=== PATIENT | male | born 1950 | race Caucasian/White ===

== ENCOUNTER 2024-01-10 15:35 | Observation (INO) | payer MEDICARE, SELFPAY ==
[2024-01-10] VITALS (13 sets, daily range): BP systolic 104–123; BP diastolic 63–80; PULSE 79–89; RESP 15–20; TEMP 36.1–37.1; O2SAT 95–100
--- NOTE | 2024-01-10 15:41 | ECG_ITS ---
Measurements Intervals [place] Rate: 88 P: 31 NC: 172 QRS: -29 QRSD: 99 T: 32 QT: 378 QTc: 459 Interpretive Statements SINUS RHYTHM DELAYED PRECORDIAL R/S TRANSITION NONSPECIFIC ST & T-WAVE ABNORMALITY- HIGH LATERAL LEADS BORDERLINE ECG NO PREVIOUS ECG AVAILABLE FOR COMPARISON Electronically Signed On 01-10-2024 18:26:45 ANTIQUE REFINISHER by Mychal Mariee D.O.
[2024-01-10 16:11] LABS: Basophils Percent Auto 0.2 % (0.2-1.2); Eosinophils Absolute Auto 0.2 K/mm3 (0-0.3); Eosinophils Percent Auto 4.4 % (0-4.4); Hematocrit 33.7 % (42.0-52.0); Hemoglobin 11.3 g/dL (14.0-18.0); Immature Granulocyte Absolute 0.01 K/mm3 (0.00-0.031); Immature Granulocyte Percent A 0.2 % (0-0.5); Lymphocytes Absolute Auto 1.56 K/mm3 (0.9-3.2); Lymphocytes Percent Auto 35.9 % (18.3-44.2); Mean Corpuscular HGB Conc 33.5 g/dl (32-36); Mean Corpuscular Hemoglobin 29.3 pg (26-34); Mean Corpuscular Volume 87.3 fl (80-100); Monocytes Absolute Auto 1.2 K/mm3 (0.1-0.6); Monocytes Percent Auto 28.1 % (2.6-8.5); Neutrophils Absolute Auto 1.4 K/mm3 (1.3-6.7); Neutrophils Percent Auto 31.2 % (45.5-73.1); Platelet Count Result 309 k/mm3 (150-375); Red Blood Count 3.86 M/mm3 (4.6-6.20); Red Cell Distribution Width 13.7 % (11.5-14.5); White Blood Count 4.3 K/mm3 (4.5-10.0)
--- NOTE | 2024-01-10 16:12 | ED.RECABL ---
HPI - Recheck/Abnormal Lab/Rx General Chief Complaint: Recheck/Abnormal Lab/Rx Stated Complaint: Low potassium Time Seen by Provider: 01/10/24 15:50 Source: patient and family () Mode of arrival: EMS Limitations: no limitations History of Present Illness HPI narrative: Patient presents with report of hypokalemia of 2.2 from outside labs drawn. He has had episodes of hypokalemia before. He is on a diuretic as he dealt with bilateral lower extremity edema and anasarca previously. Labs were drawn because patient was experiencing fatigue, increased sleepiness, weakness, and issues with blood pressure. He has felt nauseated but not vomiting. Patient had spinal fusion surgery during which he coded in recovery. He received post cardiac arrest blood thinners and blood leaked into spinal canal leaving him paralyzed. He currently has a left sided nephrostomy drain. medication list per [facility] documentation list diltiazem 120 mg extended release, ondansetron, multiple vitamins minerals tablet, gabapentin, metolazone, zolpidem, enoxaparin, nutritional supplement, vitamin C, Tubersol, Scout packet, stimulant laxative, tamsulosin, bisacodyl, cyclobenzaprine, acetaminophen, miconazole antifungal cream, acyclovir, cholecalciferol, furosemide 40 mg, levitiracetam, pantoprazole Related Data Home Medications Medication Instructions Recorded Confirmed acetaminophen 500 mg tablet 500 mg PO Q6H PRN Pain (Scale 01/10/24 01/10/24 Score 1-3) acyclovir 400 mg tablet 400 mg PO BID 01/10/24 01/10/24 arginine 7 gram-glutamine 7 1 ea PO BID 01/10/24 01/10/24 gram-calcium HMB 1.5 gram oral powder pack (Scout) ascorbate calcium (vitamin C) 500 500 mg PO BID 01/10/24 01/10/24 mg tablet bisacodyl 10 mg rectal suppository 10 mg RECTAL DAILY PRN Constipation 01/10/24 01/10/24 cholecalciferol (vitamin D3) 125 125 mcg PO DAILY 01/10/24 01/10/24 mcg (5,000 unit) capsule cyclobenzaprine 10 mg tablet 5 mg PO TID PRN muscle spasms 01/10/24 01/10/24 diltiazem HCl 240 mg 120 mg PO BID 01/10/24 01/10/24 capsule,extended release 24 hr, controlled (DILT-XR) enoxaparin 80 mg/0.8 mL 80 mg subcut Q12H 01/10/24 01/10/24 subcutaneous syringe furosemide 40 mg tablet 40 mg PO BID 01/10/24 01/10/24 gabapentin 600 mg tablet 600 mg PO TID PRN Pain (Scale 01/10/24 01/10/24 Score 1-3) levetiracetam 1,000 mg tablet 1,000 mg PO BID 01/10/24 01/10/24 metolazone 5 mg tablet 5 mg PO DAILY 01/10/24 01/10/24 miconazole nitrate 2 % topical 1 applic topical BID 01/10/24 01/10/24 cream multivitamin 1 tablet PO DAILY 01/10/24 01/10/24 ondansetron HCl 4 mg tablet 4 mg PO Q8H PRN nausea/vomiting 01/10/24 01/10/24 pantoprazole 40 mg tablet,delayed 40 mg PO DAILY 01/10/24 01/10/24 release sennosides 8.6 mg-docusate sodium 1 tab-cap PO DAILY 01/10/24 01/10/24 50 mg tablet (Stimulant Laxative Plus) tamsulosin 0.4 mg capsule 0.4 mg PO DAILY 01/10/24 01/10/24 Allergies Allergy/AdvReac Type Severity Reaction Status Date / Time No Known Allergies Allergy Verified 01/10/24 15:40 [facility] Past Medical History Medical History (Updated 01/11/24 @ 10:29 by Nelly Montgomery MD) Anemia, unspecified Complete paraplegia since 11/07/2023 Deep venous thrombosis Gastroesophageal reflux disease without esophagitis Hypertension Insomnia Kidney stones Melanoma Postoperative cardiac arrest (10/2023) Prostate cancer Pulmonary embolism Pulmonary hypertension Seizure disorder Surgical History Surgical History (Updated 01/10/24 @ 23:49 by Nidia Ortez PA-C) History of arthroscopy of both knees History of bilateral knee arthroplasty History of lithotripsy History of radical prostatectomy (2007) History of spinal surgery Presence of urogenital implants Family History Family History (Updated 01/10/24 @ 23:49 by Nidia Ortez PA-C) Other Family history non-contributory Social History Social History (Updated 01/10/24 @ 23:50 by Nidia
[2024-01-10 16:23] LABS: Phosphorus 4.1 mg/dL (2.5-4.5)
[2024-01-10 16:28] LABS: Alanine Aminotransferase 23 U/L (6-50); Alkaline Phosphatase 101 U/L (38-126); Aspartate Amino Transferase 28 U/L (17-59); Bilirubin,Total 0.6 mg/dL (0.2-1.3); Blood Urea Nitrogen 71 mg/dL (9-20); Calcium 9.6 mg/dL (8.4-10.2); Carbon Dioxide > 40 mmol/L (22-30); Chloride 81 mmol/L (98-107); Estimated CRCL calculation 41 ml/min; Estimated Glomerular Filt Rate 50; Glucose 127 mg/dL (65-110); Magnesium 2.4 mg/dL (1.6-2.3); Potassium < 2.0 mmol/L (3.4-5.0); Sodium 130 mmol/L (137-145)
[2024-01-10] MEDS: SODIUM CHLORIDE 0.9% IV 1,000 ML 999 ML IV CONT (16:47)
[2024-01-10] MEDS: POTASSIUM PHOS/SODIUM PHOS 250 MG TABLET PO (16:48)
[2024-01-10] MEDS: KCL 20 MEQ/SW 100 ML 100 ML 50 MEQ IVPB ×2 (17:21→19:22)
[2024-01-10 17:48] LABS: Creatine Kinase 23 U/L (55-170)
--- NOTE | 2024-01-10 19:04 | PM.IMHP ---
H&P: HPI History of Present Illness Date/Time: 01/10/24 23:00 Chief Complaint: Low potassium level. Narrative: This is a very pleasant 73-year-old male with history of cardiac arrest following back surgery in October 2023 complicated by what sounds like hemorrhage at the operative site leading to complete paraplegia, deep venous thrombosis and pulmonary embolism on anticoagulation, seizures, kidney stones with nephrostomy tube currently in place, prostate cancer status post prostatectomy, melanoma, gastroesophageal reflux disease, and hypertension who presented to the emergency department via EMS from [place] for evaluation after he was found to have a low potassium level. The patient provides the following history. He has been having issues with his potassium level for quite some time, had labs drawn today, and was told he had a potassium of less than 2 and was sent to the ER. He is on furosemide and metolazone which he believes is due to significant lower extremity edema though that has improved significantly. He had not been on potassium but has been receiving potassium pills last couple of days. He feels okay and really does not have any specific complaints. He is known to have a nephrostomy tube which was apparently placed within the last couple of weeks and he has not had any issues with that. He denies fever, chills, sweats, headache, chest pain, shortness a breath, nausea, vomiting, and diarrhea. To his knowledge she has not had a decrease in urine output. In the ED: He was afebrile on arrival with stable vital signs. Labs were significant for WBC count of 4.3, hemoglobin 11.3, sodium 130, potassium less than 2, chloride 89, carbon dioxide greater than 40, BUN 71, creatinine 1.40, magnesium 2.4, CK 23. He was given 80 mEq of potassium in the ED and is being admitted to the IMU in this setting for close monitoring while his electrolytes are being replaced. Review of Systems Review of Systems: Twelve systems were reviewed and are negative except for as per HPI. [facility] Past Medical History Medical History (Updated 01/10/24 @ 23:55 by Nidia Ortez PA-C) Anemia, unspecified Complete paraplegia Deep venous thrombosis Gastroesophageal reflux disease without esophagitis Hypertension Insomnia Kidney stones Melanoma Postoperative cardiac arrest (10/2023) Prostate cancer Pulmonary embolism Pulmonary hypertension Seizure disorder Surgical History Surgical History (Updated 01/10/24 @ 23:49 by Nidia Ortez PA-C) History of arthroscopy of both knees History of bilateral knee arthroplasty History of lithotripsy History of radical prostatectomy (2007) History of spinal surgery Presence of urogenital implants Family History Family History (Updated 01/10/24 @ 23:49 by Nidia Ortez PA-C) Other Family history non-contributory Social History Social History (Updated 01/10/24 @ 23:50 by Nidia Ortez PA-C) Social History: Surrogate medical decision maker: Irenehumaira Finneganjacinda, spouse. Code status: Full code. Smoking status: Former smoker Tobacco type: cigarettes Alcohol intake: current Alcohol use details: Social alcohol use in moderation. Substance use: current Substance use type: marijuana Do You Feel Safe in your Home?: Yes Lack of Transportation: No Lack of Food: Never True Current Housing: I Have Housing Concerned About Future Housing: No Difficulty Paying Gas/Electric Bills: No Difficulty Paying for Meds: No Currently Unemployed: No Education: Master's Degree or Higher Difficulty w/ Childcare or Family Care: No Additional living arrangements comments: Currently at [facility] for rehab. 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 Spiritual care concerns: No Meds Home Medications and Allergies Home Medications Medication Instructions Recorded Confirmed Type zolpidem 5 mg tablet 5 mg PO QHS PRN insomnia #30 tabs
--- NOTE | 2024-01-10 19:15 | PC.NURSE ---
Report given to NARENDRA Cooper
[2024-01-10 20:23] LABS: Blood Urea Nitrogen 70 mg/dL (9-20); Calcium 8.9 mg/dL (8.4-10.2); Carbon Dioxide > 40 mmol/L (22-30); Chloride 85 mmol/L (98-107); Estimated CRCL calculation 48 ml/min; Estimated Glomerular Filt Rate 60; Glucose 119 mg/dL (65-110); Potassium 2.7 mmol/L (3.4-5.0); Sodium 129 mmol/L (137-145)
--- NOTE | 2024-01-10 21:46 | ADMGEN ---
This patient, Hira Evans, was admitted to IMU Room 207-01 at 2120. Patient/family oriented to hospital policies and general routines including ID bracelet, bed and alarms, visiting hours, pain management, procedures, bathroom and other care routines, personal items, smoking policy, room service/diet, and visiting hours. Information on how to activate the Rapid Response Team has been discussed. Patient/Family are encouraged to report perceived risks to care and to ask questions if they do not understand what they are told or what they should do.
[2024-01-10 22:43] LABS: Potassium 2.6 mmol/L (3.4-5.0)
[2024-01-10] MEDS: ENOXAPARIN 80 MG/0.8 ML SYRINGE SUB-Q (23:57)
[2024-01-10] MEDS: POTASSIUM CHLORIDE INJ 40 MEQ in SODIUM CHLORIDE 0.9% IV 500 ML 130 MEQ IVPB (23:57)
[2024-01-10] MEDS: levETIRAcetam 500 MG TABLET 1000 MG PO (23:57)
[2024-01-10] MEDS: SODIUM CHLORIDE 0.9% IV 1,000 ML 100 ML IV CONT (23:57)
[2024-01-11] VITALS (18 sets, daily range): BP systolic 108–118; BP diastolic 68–75; PULSE 71–83; RESP 16–22; TEMP 36–36.4; O2SAT 98–100; BMI 26.8
[2024-01-11 04:37] LABS: Mean Corpuscular HGB Conc 33.3 g/dl (32-36); Mean Corpuscular Hemoglobin 29.5 pg (26-34); Mean Corpuscular Volume 88.5 fl (80-100); Mean Platelet Volume 10.3 fl (7.4-10.4); Platelet Count Result 279 k/mm3 (150-375); Red Blood Count 3.39 M/mm3 (4.6-6.20); Red Cell Distribution Width 13.8 % (11.5-14.5); White Blood Count 4.4 K/mm3 (4.5-10.0)
[2024-01-11 05:33] LABS: Anion Gap 4 mmol/L (8-16); Blood Urea Nitrogen 63 mg/dL (9-20); Calcium 8.9 mg/dL (8.4-10.2); Carbon Dioxide 38 mmol/L (22-30); Chloride 90 mmol/L (98-107); Estimated CRCL calculation 48 ml/min; Estimated Glomerular Filt Rate 60; Glucose 110 mg/dL (65-110); Magnesium 2.3 mg/dL (1.6-2.3); Sodium 132 mmol/L (137-145)
[2024-01-11] MEDS: TAMSULOSIN HCL 0.4 MG CAPSULE PO (08:27)
[2024-01-11] MEDS: ACYCLOVIR 400 MG TABLET PO ×2 (08:27→17:00)
[2024-01-11] MEDS: CHOLECALCIFEROL 1,000 UNITS TABLET 5000 UNITS PO (08:27)
[2024-01-11] MEDS: SENNA/DOCUSATE SODIUM TABLET 1 TAB PO (08:27)
[2024-01-11] MEDS: PANTOPRAZOLE 40 MG TABLET PO (08:28)
[2024-01-11] MEDS: ASCORBIC ACID 500 MG TABLET PO ×2 (08:28→17:00)
[2024-01-11] MEDS: MICONAZOLE NITRATE 2% CREAM 30 GM TUBE 1 APPLIC TOPICAL ×2 (08:28→20:43)
[2024-01-11] MEDS: ENOXAPARIN 80 MG/0.8 ML SYRINGE SUB-Q ×2 (08:28→20:43)
[2024-01-11] MEDS: MULTIVITAMINS THERAPEUTIC TAB (*BKC) 1 TABLET PO (08:28)
[2024-01-11] MEDS: levETIRAcetam 500 MG TABLET 1000 MG PO ×2 (08:28→20:43)
[2024-01-11] MEDS: dilTIAZem HCL CD 120 MG CAP.24HR PO ×2 (08:28→20:43)
[2024-01-11] MEDS: POTASSIUM CHLORIDE 20 MEQ PACKET (FOR LIQUID) 40 MEQ PO ×2 (11:18→17:00)
[2024-01-11] MEDS: SODIUM CHLORIDE 0.9% IV 1,000 ML 100 ML IV CONT (11:26)
--- NOTE | 2024-01-11 13:39 | PM.IMPN ---
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 History of cardiac arrest following back surgery in October of 2023 complicated with hematoma leading to complete paraplegia DVT and pulmonary embolism on anticoagulation seizure kidney stone with nephrostomy tube currently in place prostate cancer status post prostatectomy melanoma gastroesophageal reflux disease and hypertension. He has been on furosemide and metolazone and to his knowledge she was not on potassium total last couple of days. Likely related to over diuresis. He has an acute kidney injury which is likely related to the same. He looks dry on exam and was given IV hydration. Potassium was replaced aggressively. He is on enoxaparin b.i.d. for history of DVT and PE and that will be continued. PT OT will be ordered. Lasix and metolazone on hold. Lower extremity edema has not significantly improved. Will stop IV fluids. Recheck labs in a.m.. Magnesium level high Subjective Date/time seen: 01/11/24 13:39 Interval history: Feeling better. Feeling stronger. Discussed with patient and family at bedside. Leg swelling has improved. Review of Systems Review of Systems: All systems reviewed & are unremarkable except as noted in HPI and below Exam Narrative: General: Nontoxic-appearing gentleman in the semi-Martinez position in bed.. HEENT: PERRL, EOMI. Sclera anicteric. Tacky mucous membranes. Neck: Supple. No JVD. Respiratory: Lungs are clear to auscultation bilaterally. Cardiovascular: Regular rate and rhythm with S1-S2. Gastrointestinal: Abdomen is soft, nontender, and nondistended with positive bowel sounds. Left nephrostomy tube in place draining cloudy camilo colored fluid. Skin: Warm and dry. Extremities: No cyanosis or clubbing. Mild bilateral lower extremity edema. Neurological: Alert. Cranial nerves 2-12 are grossly intact. No movement or sensation below the waist. Psychiatric: Pleasant and cooperative with normal mood and affect. Judgment and insight intact. Objective Data Vital Signs Vital Signs: Vital Signs - 24 hr 01/10/24 15:33 01/10/24 15:50 01/10/24 16:01 Temperature 98.0 F Pulse Rate 89 88 89 Respiratory Rate 17 20 Blood Pressure 116/74 107/78 Pulse Oximetry 99 95 Oxygen Delivery Room Air 01/10/24 17:00 01/10/24 16:30 01/10/24 17:30 Temperature Pulse Rate 79 87 81 Respiratory Rate 18 20 20 Blood Pressure 115/80 113/73 123/71 Pulse Oximetry 100 98 98 Oxygen Delivery 01/10/24 18:00 01/10/24 19:14 01/10/24 19:15 Temperature 98.7 F Pulse Rate 88 86 85 Respiratory Rate 20 18 Blood Pressure 111/74 117/74 Pulse Oximetry 99 98 Oxygen Delivery 01/10/24 18:30 01/10/24 21:07 01/10/24 21:47 Temperature 96.9 F L Pulse Rate 87 89 86 Respiratory Rate 18 15 16 Blood Pressure 117/75 114/76 104/63 Pulse Oximetry 100 99 99 Oxygen Delivery 01/11/24 00:00 01/11/24 00:00 01/10/24 22:00 Temperature 96.9 F L Pulse Rate 81 85 Respiratory Rate 18 Blood Pressure 112/75 Pulse Oximetry 100 Oxygen Delivery Room Air 01/11/24 00:00 01/11/24 02:00 01/11/24 04:00 Temperature Pulse Rate 83 7
[2024-01-11] MEDS: ZOLPIDEM TARTRATE (*CRX) 5 MG TABLET PO (20:43)
[2024-01-12] VITALS (13 sets, daily range): BP systolic 114–118; BP diastolic 71–75; PULSE 69–77; RESP 14–20; TEMP 36–37.1; O2SAT 99–100
[2024-01-12 04:33] LABS: Basophils Percent Auto 0.5 % (0.2-1.2); Eosinophils Absolute Auto 0.2 K/mm3 (0-0.3); Eosinophils Percent Auto 5.6 % (0-4.4); Hematocrit 31.5 % (42.0-52.0); Lymphocytes Percent Auto 38.5 % (18.3-44.2); Mean Corpuscular HGB Conc 31.7 g/dl (32-36); Mean Corpuscular Volume 91.3 fl (80-100); Mean Platelet Volume 10.2 fl (7.4-10.4); Monocytes Absolute Auto 1.3 K/mm3 (0.1-0.6); Monocytes Percent Auto 32.6 % (2.6-8.5); Neutrophils Absolute Auto 0.9 K/mm3 (1.3-6.7); Neutrophils Percent Auto 22.8 % (45.5-73.1); Platelet Count Result 243 k/mm3 (150-375); Red Blood Count 3.45 M/mm3 (4.6-6.20); Red Cell Distribution Width 13.9 % (11.5-14.5); White Blood Count 3.9 K/mm3 (4.5-10.0)
[2024-01-12 04:47] LABS: Alanine Aminotransferase 22 U/L (6-50); Albumin Level 3.6 g/dL (3.5-5.1); Alkaline Phosphatase 78 U/L (38-126); Anion Gap 1 mmol/L (8-16); Aspartate Amino Transferase 25 U/L (17-59); Bilirubin,Total 0.5 mg/dL (0.2-1.3); Blood Urea Nitrogen 43 mg/dL (9-20); Carbon Dioxide 36 mmol/L (22-30); Chloride 95 mmol/L (98-107); Estimated CRCL calculation 52 ml/min; Estimated Glomerular Filt Rate > 60; Glucose 111 mg/dL (65-110); Magnesium 2.4 mg/dL (1.6-2.3); Potassium 2.8 mmol/L (3.4-5.0); Sodium 132 mmol/L (137-145)
[2024-01-12] MEDS: POTASSIUM CHLORIDE INJ 40 MEQ in SODIUM CHLORIDE 0.9% IV 500 ML 130 MEQ IVPB (05:11)
[2024-01-12] MEDS: ACYCLOVIR 400 MG TABLET PO ×2 (08:15→16:08)
[2024-01-12] MEDS: PANTOPRAZOLE 40 MG TABLET PO (08:16)
[2024-01-12] MEDS: ASCORBIC ACID 500 MG TABLET PO ×2 (08:16→16:08)
[2024-01-12] MEDS: dilTIAZem HCL CD 120 MG CAP.24HR PO ×2 (08:16→20:47)
[2024-01-12] MEDS: SENNA/DOCUSATE SODIUM TABLET 1 TAB PO (08:16)
[2024-01-12] MEDS: CHOLECALCIFEROL 1,000 UNITS TABLET 5000 UNITS PO (08:16)
[2024-01-12] MEDS: MULTIVITAMINS THERAPEUTIC TAB (*BKC) 1 TABLET PO (08:17)
[2024-01-12] MEDS: MICONAZOLE NITRATE 2% CREAM 30 GM TUBE 1 APPLIC TOPICAL ×2 (08:17→20:47)
[2024-01-12] MEDS: TAMSULOSIN HCL 0.4 MG CAPSULE PO (08:17)
[2024-01-12] MEDS: levETIRAcetam 500 MG TABLET 1000 MG PO ×2 (08:19→20:47)
[2024-01-12] MEDS: ENOXAPARIN 80 MG/0.8 ML SYRINGE SUB-Q ×2 (09:42→20:47)
--- NOTE | 2024-01-12 13:27 | PM.IMPN ---
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 History of cardiac arrest following back surgery in October of 2023 complicated with hematoma leading to complete paraplegia DVT and pulmonary embolism on anticoagulation seizure kidney stone with nephrostomy tube currently in place prostate cancer status post prostatectomy melanoma gastroesophageal reflux disease and hypertension. He has been on furosemide and metolazone and to his knowledge she was not on potassium total last couple of days. Likely related to over diuresis. He has an acute kidney injury which is likely related to the same. He looks dry on exam and was given IV hydration. Potassium was replaced aggressively. He is on enoxaparin b.i.d. for history of DVT and PE and that will be continued. PT OT will be ordered. Lasix and metolazone on hold. Lower extremity edema has not significantly improved. Stopped IV fluid. Magnesium level high continue to replace potassium and monitor Subjective Date/time seen: 01/12/24 13:27 Interval history: No overnight events. Labs reviewed. No shortness of breath or chest pain. Review of Systems Review of Systems: All systems reviewed & are unremarkable except as noted in HPI and below Exam Narrative: General: Nontoxic-appearing gentleman in the semi-Martinez position in bed.. HEENT: PERRL, EOMI. Sclera anicteric. Tacky mucous membranes. Neck: Supple. No JVD. Respiratory: Lungs are clear to auscultation bilaterally. Cardiovascular: Regular rate and rhythm with S1-S2. Gastrointestinal: Abdomen is soft, nontender, and nondistended with positive bowel sounds. Left nephrostomy tube in place draining cloudy camilo colored fluid. Skin: Warm and dry. Extremities: No cyanosis or clubbing. Mild bilateral lower extremity edema. Neurological: Alert. Cranial nerves 2-12 are grossly intact. No movement or sensation below the waist. Psychiatric: Pleasant and cooperative with normal mood and affect. Judgment and insight intact. Objective Data Vital Signs Vital Signs: Vital Signs - 24 hr 01/11/24 14:00 01/11/24 15:52 01/11/24 16:00 Temperature 96.8 F L Pulse Rate 76 78 71 Respiratory Rate 20 Blood Pressure 118/72 Pulse Oximetry 100 Oxygen Delivery 01/11/24 16:00 01/11/24 18:00 01/11/24 19:45 Temperature 97.6 F Pulse Rate 81 82 Respiratory Rate 16 Blood Pressure 109/68 Pulse Oximetry 98 Oxygen Delivery Room Air 01/11/24 23:32 01/11/24 20:00 01/12/24 00:00 Temperature 97.1 F L Pulse Rate 77 Respiratory Rate 16 Blood Pressure 111/71 Pulse Oximetry 98 Oxygen Delivery Room Air Room Air 01/11/24 20:00 01/11/24 22:00 01/12/24 00:00 Temperature Pulse Rate 81 76 75 Respiratory Rate Blood Pressure Pulse Oximetry Oxygen Delivery 01/12/24 04:00 01/11/24 22:02 01/12/24 04:00 Temperature 97.3 F L Pulse Rate 77 Respiratory Rate 14 Blood Pressure 114/71 Pulse Oximetry 99 98 Oxygen Delivery Room Air Room Air 01/12/24 02:00 01/12/24 04:00 01/12/24 06:00 Temperature Pulse Rate 75 71 76 Respiratory Rate Blood Pressure Pulse Oximetry Oxygen
[2024-01-12 14:43] LABS: Potassium 3.4 mmol/L (3.4-5.0)
[2024-01-12] MEDS: POTASSIUM CHLORIDE 20 MEQ ER TABLET 40 MEQ PO (15:43)
--- NOTE | 2024-01-12 15:49 | PCOTNOTE ---
Patient requires a back brace if sitting EOB. Patient reports his can bring his brace tomorrow. Therapy will attempt tomorrow.
--- NOTE | 2024-01-12 18:25 | PC.NURSE ---
This patient, Hira Evans, was transferred to [facility] on 01/12/24 at 1825. Personal belongings sent with patient. Report given to Dia MACKEY. Appropriate documentation sent with patient.
--- NOTE | 2024-01-13 03:34 | PC.NURSE ---
Daylight Savings Time For Daylight Savings Time Ending in the Fall - Clocks are moved back. For Daylight Savings Time Beginning in the Spring - Clocks are moved ahead. For [facility], the time of change occurs at 0200 hrs. Time is taken from the process server. This entry on the patient's chart recognizes the change in time reflected during documentation. Example: 2 entries for vital signs may be charted for 0200 hrs.
[2024-01-13] MEDS: ACETAMINOPHEN 325 MG TABLET 650 MG PO ×2 (04:51→20:16)
[2024-01-13] MEDS: CYCLOBENZAPRINE HCL 5 MG TABLET PO (04:51)
[2024-01-13 05:38] VITALS: BP 115/67; PULSE 74; RESP 16; TEMP 36.7; O2SAT 98
[2024-01-13 06:16] LABS: Basophils Percent Auto 0.6 % (0.2-1.2); Eosinophils Absolute Auto 0.3 K/mm3 (0-0.3); Eosinophils Percent Auto 7.2 % (0-4.4); Hematocrit 30.8 % (42.0-52.0); Hemoglobin 9.8 g/dL (14.0-18.0); Immature Granulocyte Absolute 0.01 K/mm3 (0.00-0.031); Immature Granulocyte Percent A 0.3 % (0-0.5); Lymphocytes Absolute Auto 1.48 K/mm3 (0.9-3.2); Mean Corpuscular HGB Conc 31.8 g/dl (32-36); Mean Corpuscular Volume 91.1 fl (80-100); Mean Platelet Volume 10.8 fl (7.4-10.4); Neutrophils Absolute Auto 0.8 K/mm3 (1.3-6.7); Neutrophils Percent Auto 22.9 % (45.5-73.1); Platelet Count Result 258 k/mm3 (150-375); Red Blood Count 3.38 M/mm3 (4.6-6.20); White Blood Count 3.6 K/mm3 (4.5-10.0)
[2024-01-13 06:26] LABS: Alanine Aminotransferase 22 U/L (6-50); Albumin Level 3.6 g/dL (3.5-5.1); Alkaline Phosphatase 77 U/L (38-126); Anion Gap 1 mmol/L (8-16); Aspartate Amino Transferase 23 U/L (17-59); Bilirubin,Total 0.5 mg/dL (0.2-1.3); Blood Urea Nitrogen 29 mg/dL (9-20); Calcium 9.1 mg/dL (8.4-10.2); Carbon Dioxide 34 mmol/L (22-30); Chloride 98 mmol/L (98-107); Estimated CRCL calculation 57 ml/min; Estimated Glomerular Filt Rate > 60; Glucose 103 mg/dL (65-110); Magnesium 2.2 mg/dL (1.6-2.3); Potassium 3.3 mmol/L (3.4-5.0); Sodium 133 mmol/L (137-145)
[2024-01-13] MEDS: ACYCLOVIR 400 MG TABLET PO ×2 (09:42→16:30)
[2024-01-13] MEDS: ASCORBIC ACID 500 MG TABLET PO ×2 (09:42→16:30)
[2024-01-13] MEDS: MULTIVITAMINS THERAPEUTIC TAB (*BKC) 1 TABLET PO (09:42)
[2024-01-13] MEDS: CHOLECALCIFEROL 1,000 UNITS TABLET 5000 UNITS PO (09:42)
[2024-01-13] MEDS: levETIRAcetam 500 MG TABLET 1000 MG PO ×2 (09:42→20:16)
[2024-01-13] MEDS: ENOXAPARIN 80 MG/0.8 ML SYRINGE SUB-Q ×2 (09:43→20:17)
[2024-01-13] MEDS: dilTIAZem HCL CD 120 MG CAP.24HR PO ×2 (09:43→20:16)
[2024-01-13] MEDS: TAMSULOSIN HCL 0.4 MG CAPSULE PO (09:43)
[2024-01-13] MEDS: PANTOPRAZOLE 40 MG TABLET PO (09:43)
--- NOTE | 2024-01-13 11:53 | PM.IMPN ---
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 History of cardiac arrest following back surgery in October of 2023 complicated with hematoma leading to complete paraplegia DVT and pulmonary embolism on anticoagulation seizure kidney stone with nephrostomy tube currently in place prostate cancer status post prostatectomy melanoma gastroesophageal reflux disease and hypertension. He has been on furosemide and metolazone and to his knowledge she was not on potassium total last couple of days. Likely related to over diuresis. He has an acute kidney injury which is likely related to the same. He looks dry on exam and was given IV hydration. Potassium was replaced aggressively. He is on enoxaparin b.i.d. for history of DVT and PE and that will be continued. PT OT ordered. Lasix and metolazone on hold. Lower extremity edema has not significantly improved. Stopped IV fluid. Magnesium level high continue to replace potassium and monitor. Potassium low slowly improving. Continue to replace and monitor. BUN has also been improving suggesting improved hydration status Subjective Date/time seen: 01/13/24 11:53 Interval history: No overnight events. Feels tired and lousy. at bedside. Not much appetite. Review of Systems Review of Systems: All systems reviewed & are unremarkable except as noted in HPI and below Exam Narrative: General: Nontoxic-appearing gentleman in the semi-Martinez position in bed.. HEENT: PERRL, EOMI. Sclera anicteric. Tacky mucous membranes. Neck: Supple. No JVD. Respiratory: Lungs are clear to auscultation bilaterally. Cardiovascular: Regular rate and rhythm with S1-S2. Gastrointestinal: Abdomen is soft, nontender, and nondistended with positive bowel sounds. Left nephrostomy tube in place draining cloudy camilo colored fluid. Skin: Warm and dry. Extremities: No cyanosis or clubbing. Mild bilateral lower extremity edema. Neurological: Alert. Cranial nerves 2-12 are grossly intact. No movement or sensation below the waist. Psychiatric: Pleasant and cooperative with normal mood and affect. Judgment and insight intact. Objective Data Vital Signs Vital Signs: Vital Signs - 24 hr 01/12/24 12:03 01/12/24 12:00 01/12/24 14:00 Temperature 96.8 F L Pulse Rate 70 74 69 Respiratory Rate 20 Blood Pressure 118/73 Pulse Oximetry 100 Oxygen Delivery 01/12/24 15:37 01/12/24 18:30 01/12/24 21:17 Temperature 98.3 F 98.7 F 98.3 F Pulse Rate 73 75 75 Respiratory Rate 20 18 14 Blood Pressure 117/73 116/72 116/75 Pulse Oximetry 99 100 100 Oxygen Delivery 01/12/24 20:00 01/13/24 05:38 Temperature 98.0 F Pulse Rate 74 Respiratory Rate 16 Blood Pressure 115/67 Pulse Oximetry 98 Oxygen Delivery Room Air Intake/Output Intake/Output: Intake & Output 01/10/24 01/11/24 01/12/24 01/14/24 23:59 23:59 23:59 00:59 Intake Total 1200 1880 1240 1230 Output Total 1090 1410 250 Balance 1200 790 -170 980 Meds/Results Medications: Active Medications Generic Name Dose Route Start Last Admin Trade Name Freq PRN Reason Stop Dose Admin Acetaminophen 650 mg 01/10/24 18:31 03
--- NOTE | 2024-01-13 13:03 | PCPTNOTE ---
Attempted PT evaluation, Pt's back brace not present for safe participation in skilled therapy. Will continue to follow
--- NOTE | 2024-01-13 13:33 | PCOTNOTE ---
Attmpted to see patient for OT evaluation this afternoon. Patient declining due to wanting to take a nap. Will continue to attempt.
[2024-01-13 14:00] VITALS: BP 113/65; PULSE 73; RESP 16; TEMP 36.6; O2SAT 99
[2024-01-13] MEDS: POTASSIUM CHLORIDE 20 MEQ ER TABLET 40 MEQ PO (16:25)
[2024-01-13] MEDS: MICONAZOLE NITRATE 2% CREAM 30 GM TUBE 1 APPLIC TOPICAL ×2 (16:30→20:17)
[2024-01-13] MEDS: ZOLPIDEM TARTRATE (*CRX) 5 MG TABLET PO (20:50)
[2024-01-13 21:40] VITALS: BP 113/78; PULSE 81; RESP 14; TEMP 36.4; O2SAT 100
[2024-01-14 05:50] VITALS: BP 118/76; PULSE 80; RESP 16; TEMP 36.3; O2SAT 100
[2024-01-14 08:41] LABS: Basophils Percent Auto 0.8 % (0.2-1.2); Eosinophils Absolute Auto 0.3 K/mm3 (0-0.3); Eosinophils Percent Auto 7.2 % (0-4.4); Hematocrit 31.6 % (42.0-52.0); Hemoglobin 10.2 g/dL (14.0-18.0); Immature Granulocyte Absolute 0.03 K/mm3 (0.00-0.031); Immature Granulocyte Percent A 0.8 % (0-0.5); Lymphocytes Absolute Auto 1.39 K/mm3 (0.9-3.2); Lymphocytes Percent Auto 38.4 % (18.3-44.2); Mean Corpuscular HGB Conc 32.3 g/dl (32-36); Mean Corpuscular Hemoglobin 29.5 pg (26-34); Mean Corpuscular Volume 91.3 fl (80-100); Mean Platelet Volume 10.3 fl (7.4-10.4); Monocytes Absolute Auto 0.7 K/mm3 (0.1-0.6); Monocytes Percent Auto 19.9 % (2.6-8.5); Neutrophils Absolute Auto 1.2 K/mm3 (1.3-6.7); Neutrophils Percent Auto 32.9 % (45.5-73.1); Platelet Count Result 256 k/mm3 (150-375); Red Blood Count 3.46 M/mm3 (4.6-6.20); White Blood Count 3.6 K/mm3 (4.5-10.0)
[2024-01-14 09:08] LABS: Alanine Aminotransferase 93 U/L (6-50); Albumin Level 4.3 g/dL (3.5-5.1); Alkaline Phosphatase 114 U/L (38-126); Anion Gap 3 mmol/L (8-16); Aspartate Amino Transferase 55 U/L (17-59); Bilirubin,Total 0.8 mg/dL (0.2-1.3); Blood Urea Nitrogen 18 mg/dL (9-20); Calcium 9.4 mg/dL (8.4-10.2); Carbon Dioxide 32 mmol/L (22-30); Chloride 98 mmol/L (98-107); Estimated CRCL calculation 52 ml/min; Estimated Glomerular Filt Rate > 60; Glucose 93 mg/dL (65-110); Magnesium 1.9 mg/dL (1.6-2.3); Potassium 3.9 mmol/L (3.4-5.0); Sodium 133 mmol/L (137-145)
[2024-01-14] MEDS: SENNA/DOCUSATE SODIUM TABLET 1 TAB PO (09:32)
[2024-01-14] MEDS: ACYCLOVIR 400 MG TABLET PO (09:32)
[2024-01-14] MEDS: TAMSULOSIN HCL 0.4 MG CAPSULE PO (09:32)
[2024-01-14] MEDS: MULTIVITAMINS THERAPEUTIC TAB (*BKC) 1 TABLET PO (09:32)
[2024-01-14] MEDS: ASCORBIC ACID 500 MG TABLET PO (09:32)
[2024-01-14] MEDS: levETIRAcetam 500 MG TABLET 1000 MG PO (09:32)
[2024-01-14] MEDS: PANTOPRAZOLE 40 MG TABLET PO (09:32)
[2024-01-14] MEDS: CHOLECALCIFEROL 1,000 UNITS TABLET 5000 UNITS PO (09:32)
[2024-01-14] MEDS: dilTIAZem HCL CD 120 MG CAP.24HR PO (09:32)
[2024-01-14] MEDS: MICONAZOLE NITRATE 2% CREAM 30 GM TUBE 1 APPLIC TOPICAL (09:44)
[2024-01-14] MEDS: ENOXAPARIN 80 MG/0.8 ML SYRINGE SUB-Q (09:44)
--- NOTE | 2024-01-14 12:26 | PM.DS ---
DS: Admitting Diagnosis Discharge Date 01/14/2024 Admitting Diagnosis Hypokalemia DS: Discharge Diagnosis Discharge Diagnosis (1) Hypokalemia: Code(s): E87.6 - Hypokalemia Status: Acute (2) Acute kidney injury: Code(s): N17.9 - Acute kidney failure, unspecified Status: Acute (3) Dehydration: Code(s): E86.0 - Dehydration Status: Acute (4) Hypertension: Code(s): I10 - Essential (primary) hypertension Status: Acute (5) Seizure disorder: Code(s): G40.909 - Epilepsy, unspecified, not intractable, without status epilepticus Status: Acute (6) Complete paraplegia: Code(s): G82.21 - Paraplegia, complete Status: Acute (7) Chronic anticoagulation: Code(s): Z79.01 - pharmaceutical sales (current) use of anticoagulants Status: Acute DS: Summary Hospital Course Hospital Course: The patient presented to the emergency department for evaluation after he was found to have a low potassium level.? History of cardiac arrest following back surgery in October of 2023 complicated with hematoma leading to complete paraplegia DVT and pulmonary embolism on anticoagulation seizure kidney stone with nephrostomy tube currently in place prostate cancer status post prostatectomy melanoma gastroesophageal reflux disease and hypertension.? He has been on furosemide and metolazone and to his knowledge she was not on potassium total last couple of days. Likely related to over diuresis. He has an acute kidney injury which is likely related to the same. He looks dry on exam and was given IV hydration.? Potassium was replaced aggressively.? He is on enoxaparin b.i.d. for history of DVT and PE and that will be continued.? PT OT ordered.? Lasix and metolazone held and since no lower extremity edema present and this was discontinued. He was treated with IV fluid with improvement in his renal function as well as BUN. Potassium was aggressively replaced with subsequent normalization. Magnesium level high continue to replace potassium and monitor. He will go back to nursing facility for further rehabilitation as previously ordered. Time Spent with Patient Time attestation: Total time spent providing and/or coordinating discharge services: 35 minutes Exam Narrative: General: Nontoxic-appearing gentleman in the semi-Martinez position in bed.. HEENT: PERRL, EOMI. Sclera anicteric. Tacky mucous membranes. Neck: Supple. No JVD. Respiratory: Lungs are clear to auscultation bilaterally. Cardiovascular: Regular rate and rhythm with S1-S2. Gastrointestinal: Abdomen is soft, nontender, and nondistended with positive bowel sounds. Left nephrostomy tube in place draining cloudy camilo colored fluid. Skin: Warm and dry. Extremities: No cyanosis or clubbing. Mild bilateral lower extremity edema. Neurological: Alert. Cranial nerves 2-12 are grossly intact. No movement or sensation below the waist. Psychiatric: Pleasant and cooperative with normal mood and affect. Judgment and insight intact. DS: Data Data Completed and Pending Labs on day of discharge: Labs from last 24 hours 01/14/24 08:25 WBC 3.6 L RBC 3.46 L Hgb 10.2 L Hct 31.6 L MCV 91.3 MCH 29.5 MCHC 32.3 RDW 14.0 Plt Count 256 MPV 10.3 Immature Gran % (Auto) 0.8 H Neut % (Auto) 32.9 L Lymph % (Auto) 38.4 Gallia % (Auto) 19.9 H Eos % (Auto) 7.2 H Baso % (Auto) 0.8 Lymph # (Auto) 1.39 Gallia # (Auto) 0.7 H Eos # (Auto) 0.3 Baso # (Auto) 0.0 Abs Immat Gran (auto) 0.03 Absolute Neuts (auto) 1.2 L Absolute Nucleated RBC 0.0 Nucleated RBC % 0.0 Sodium 133 L Potassium 3.9 Chloride 98 Carbon Dioxide 32 H Anion Gap 3 L BUN 18 D Creatinine 1.10 Estim Creat Clear Calc 52 Estimated GFR > 60 Glucose 93 Calcium 9.4 Magnesium 1.9 Total Bilirubin 0.8 AST 55 ALT 93 H Alkaline Phosphatase 114 Total Protein 7.0 Albumin 4.3 Discharge Plan Discharge Attending physician on
[2024-01-14 13:52] VITALS: BMI 10.0
[2024-01-14 14:56] LABS: SARS-CoV-2 RNA PCR Negative (Negative)
== END 2024-01-14 17:20 ==
LOC: ANHED 16:04 → ANHIMU 01-11 07:39 → ANH3MEDSUR 01-14 12:26 → ANHIMU 01-15 09:35 → ANH3MEDSUR 01-15 09:35
PROVIDERS: Physician Assistant; Admitting Provider Family Medicine; Emergency Provider Student in an Organized Health Care Education/Training Program; PCP Family Medicine; Visit Provider Internal Medicine
DX: E87.6 Hypokalemia (principal); N17.9 Acute kidney failure, unspecified; D72.819 Decreased white blood cell count, unspecified; D64.9 Anemia, unspecified; G82.21 Paraplegia, complete; K21.9 Gastro-esophageal reflux disease without esophagitis; I10 Essential (primary) hypertension; E86.0 Dehydration; G40.909 Epilepsy, unspecified, not intractable, without status epilepticus; Z11.52 Encounter for screening for COVID-19; Z93.6 Other artificial openings of urinary tract status; R94.31 Abnormal electrocardiogram [ECG] [EKG]; C43.9 Malignant melanoma of skin, unspecified; G47.00 Insomnia, unspecified; I27.20 Pulmonary hypertension, unspecified; Z87.891 Personal history of nicotine dependence; Z86.74 Personal history of sudden cardiac arrest; Z86.718 Personal history of other venous thrombosis and embolism; Z86.711 Personal history of pulmonary embolism; Z85.46 Personal history of malignant neoplasm of prostate; Z98.890 Other specified postprocedural states; Z79.1 Long term (current) use of non-steroidal anti-inflammatories (NSAID); Z79.01 Long term (current) use of anticoagulants; Z79.899 Other long term (current) drug therapy
CPT/HCPCS: 36415; 80048; 80053; 82550; 83735; 84100; 84132; 85025; 85027; 87635; 93005; 96365; 96366; 96372; 96376; 97161; 97166; 99285; A9270; G0378; J1650; J3480; J7030; J7040

== ENCOUNTER 2024-02-11 13:39 | Outpatient (CLI) | payer MEDICARE, SELFPAY ==
--- NOTE | ~2024-02-11 | CT_ITS ---
CT Scan of the Chest without Contrast: Clinical Indication: History of DVT Technique: Contiguous sections were acquired throughout the chest without intravenous contrast. Dose reduction technique was used on this scan by utilizing automated exposure control and iterative recon struction technique. The dose-length product (DLP) was 652.33 mGy-cm. Findings: There is no evidence of any significant mediastinal, hilar or axillary lymphadenopathy. Coronary jes ry calcifications are present. There is no evidence of pleural or pericardial effusion. The lungs are clear. No pulmonary nodules or infiltrates are noted. Images through the upper abdomen reveal left percutaneous nephrostomy and probable multiple hepatic c ysts. Impression: Clear lungs. Left percutaneous nephrostomy. Reviewed, dictated and finalized at location . Impression: Clear lungs. Left percutaneous nephrostomy.
== END 2024-02-11 13:40 | disposition home or self-care (01) ==
LOC: ANHIMG 13:49
PROVIDERS: PCP Family Medicine; Visit Provider Nurse Practitioner Adult Health
DX: Z86.718 Personal history of other venous thrombosis and embolism (principal)
CPT/HCPCS: 71250

== ENCOUNTER 2024-10-29 15:46 | Emergency (ER) | payer MEDICARE, SELFPAY ==
[2024-10-29 15:59] VITALS: BP 141/85; PULSE 92; RESP 18; TEMP 36.2; O2SAT 100
--- NOTE | 2024-10-29 17:57 | ED.EXTPRO ---
HPI - Extremity Problem General Chief complaint: Extremity Problem,Nontraumatic Stated complaint: staff could not feel pulse in right foot Time Seen by Provider: 10/29/24 17:52 Source: patient and family Mode of arrival: ambulatory Limitations: no limitations History of Present Illness HPI Narrative: PATIENT IS 74 YEARS OLD WHITE FEMALE CAME [facility] WITH POSSIBLE ARTERIAL INSUFFICIENCY TO THE RIGHT FOOT. [facility] STAFF WERE NOT ABLE TO GET THE PULSE ON THE RIGHT FOOT. HISTORY OF PARAPLEGIA, NO SENSATION OF THE LOWER EXTREMITIES, 1 YEAR AGO. PATIENT HAVE HISTORY OF CHRONIC WOUND RIGHT FOOT DORSALLY FOR 2 MONTHS. PATIENT HAVE NO FEELING OF THE LOWER EXTREMITIES. PATIENT DENIES ANY SYMPTOMS. RIGHT TOES ARE DUSKY COLOR WHICH IS CHRONIC ACCORDING TO PATIENT'S . WHICH IS NORMAL FOR HIM. PEDAL PULSES FOUND BILATERALLY USING DOPPLER AT THE TRIAGE. Related Data Home Medications ?Medication ?Instructions ?Recorded ?Confirmed ?Last Taken ?Type acetaminophen 500 mg tablet 500 mg PO Q6H PRN Pain (Scale 01/10/24 01/10/24 Unknown History Score 1-3) acyclovir 400 mg tablet 400 mg PO BID 01/10/24 01/10/24 Unknown History arginine 7 gram-glutamine 7 1 ea PO BID 01/10/24 01/10/24 Unknown History gram-calcium HMB 1.5 gram oral powder pack (Scout) ascorbate calcium (vitamin C) 500 500 mg PO BID 01/10/24 01/10/24 Unknown History mg tablet bisacodyl 10 mg rectal suppository 10 mg RECTAL DAILY PRN Constipation 01/10/24 01/10/24 Unknown History cholecalciferol (vitamin D3) 125 125 mcg PO DAILY 01/10/24 01/10/24 Unknown History mcg (5,000 unit) capsule cyclobenzaprine 10 mg tablet 5 mg PO TID PRN muscle spasms 01/10/24 01/10/24 Unknown History diltiazem HCl 240 mg 120 mg PO BID 01/10/24 01/10/24 Unknown History capsule,extended release 24 hr, controlled (DILT-XR) enoxaparin 80 mg/0.8 mL 80 mg subcut Q12H 01/10/24 01/10/24 Unknown History subcutaneous syringe gabapentin 600 mg tablet 600 mg PO TID PRN Pain (Scale 01/10/24 01/10/24 Unknown History Score 1-3) levetiracetam 1,000 mg tablet 1,000 mg PO BID 01/10/24 01/10/24 Unknown History miconazole nitrate 2 % topical 1 applic topical BID 01/10/24 01/10/24 Unknown History cream multivitamin 1 tablet PO DAILY 01/10/24 01/10/24 Unknown History ondansetron HCl 4 mg tablet 4 mg PO Q8H PRN nausea/vomiting 01/10/24 01/10/24 Unknown History pantoprazole 40 mg tablet,delayed 40 mg PO DAILY 01/10/24 01/10/24 Unknown History release sennosides 8.6 mg-docusate sodium 1 tab-cap PO DAILY 01/10/24 01/10/24 Unknown History 50 mg tablet (Stimulant Laxative Plus) tamsulosin 0.4 mg capsule 0.4 mg PO DAILY 01/10/24 01/10/24 Unknown History Allergies Allergy/AdvReac Type Severity Reaction Status Date / Time No Known Allergies Allergy Verified 10/29/24 15:47 Review of Systems Review of Systems: All systems reviewed & are unremarkable except as noted in HPI and below PMFSH Past Medical History Medical History Complete paraplegia since 11/07/2023 Postoperative cardiac arrest (10/2023) Deep venous thrombosis Pulmonary embolism Melanoma Prostate cancer Seizure disorder Hypertension Kidney stones Anemia, unspecified Gastroesophageal reflux disease without esophagitis Pulmonary hypertension Insomnia Surgical History Surgical History History of spinal surgery History of lithotripsy History of bilateral knee arthroplasty History of arthroscopy of both knees History of radical prostatectomy (2007) Presence of urogenital implants Family History Family History Other Family history non-contributory Social History Social History Social History: Surrogate medical decision maker: Val Evans, spouse. Code status: Full code. Smoking status: Former smoker Tobacco type: cigarettes Alcohol intake: current Alcohol use details: Social alcohol use in moderation. Substance use: current Substance use type: marijuana Do You Feel Safe in your Home?: Yes Lack of Transportation: No Lack of Food: Never True Current Housing: I Have Housing Concerned About Future Housing: No Difficulty Paying Gas/Electric Bills: No Difficulty Paying for Meds: No Currently Unemployed: No Education: Master's Degree or Higher Difficulty w/ Childcare or Family Care: No Additional living arrangements comments: Currently at [facility] for rehab. 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 Spiritual care concerns: No Exam Narrative: GENERAL APPEARANCE: WELL-DEVELOPED, WELL-NOURISHED SKIN: NORMAL COLOR, HEALING WOUND AT THE DORSAL SIDE OF THE RIGHT FOOT, NO RIB FEMUR, NO DISCHARGE, POSITIVE DRESSING, THE WARMTH OF THE RIGHT FOOT EXACTLY THE SAME LEFT 1. HEAD: NORMOCEPHALIC, NONTRAUMATIC VASCULAR: NORMAL PERIPHERAL PULSES, NORMAL CAPILLARY REFILL. MUSCULOSKELETAL: PARAPLEGIA NEUROLOGIC: ALERT AND ORIENTED ?3, Course Vital Signs Vital signs: Vital Signs Temperature 36.2 C L 10/29/24 15:59 Pulse Rate 92 10/29/24 15:59 Respiratory Rate 18 10/29/24 15:59 Blood Pressure 141/85 H 10/29/24 15:59 Pulse Oximetry 100 10/29/24 15:59 Oxygen Delivery Room Air 10/29/24 15:59 Temperature 36.2 C L 10/29/24 15:59 Pulse Rate 92 10/29/24 15:59 Respiratory Rate 18 10/29/24 15:59 Blood Pressure 141/85 H 10/29/24 15:59 Pulse Oximetry 100 10/29/24 15:59 Oxygen Delivery Room Air 10/29/24 15:59 MDM - Extremity (Nontraumatic) MDM Narrative Medical decision making narrative: PATIENT CAME TO THE ED FOR QUESTIONABLE ISCHEMIA OF THE RIGHT FOOT PEDAL PULSES ARE DETECTABLE BILATERALLY, NO LABS OR IMAGING ARE REQUIRED AT THIS TIME. Discharge Plan Discharge Clinical Impression: Wound of right foot Patient Disposition: [facility] Condition: Stable Instructions: Chronic Wounds (ED) Additional Instructions: DISCHARGE BACK TO [facility] Patient Language: Sinhala Prescriptions: No Action multivitamin Tablet 1 tablet PO DAILY cyclobenzaprine 10 mg tablet 5 mg PO TID PRN (Reason: muscle spasms) gabapentin 600 mg Tablet 600 mg PO TID PRN (Reason: Pain (Scale Score 1-3)) miconazole nitrate 2 % Cream 1 applic TOPICAL BID Rx Instructions: apply to groin sennosides-docusate sodium [Stimulant Laxative Plus] 8.6-50 mg Tablet 1 tab-cap PO DAILY acyclovir 400 mg Tablet 400 mg PO BID acetaminophen 500 mg Tablet 500 mg PO Q6H PRN (Reason: Pain (Scale Score 1-3)) tamsulosin 0.4 mg Capsule 0.4 mg PO DAILY bisacodyl 10 mg Suppository 10 mg RECTAL DAILY PRN (Reason: Constipation) pantoprazole 40 mg Tablet,Delayed Release (Dr/Ec) 40 mg PO DAILY ascorbate calcium (vitamin C) 500 mg Tablet 500 mg PO BID cholecalciferol (vitamin D3) 125 mcg (5,000 unit) Capsule 125 mcg PO DAILY levetiracetam 1,000 mg Tablet 1,000 mg PO BID Scout 7-7-1.5 gram Powder In Packet 1 ea PO BID diltiazem HCl [DILT-XR] 240 mg capsule,ext.rel 24h degradable 120 mg PO BID ondansetron HCl 4 mg tablet 4 mg PO Q8H PRN (Reason: nausea/vomiting) enoxaparin 80 mg/0.8 mL Syringe 80 mg SUBCUT Q12H Follow-up/Referrals: Vinnie Cueva MD [Physician] -
--- OUTSIDE RECORDS SUMMARY | 2024-11-05 19:09 | XMS_ITS | Summary of Care ---
Author Organization [facility] Address [address] [place] [id number]- Encounter 11/16/23 - 11/29/23 [facility] [address] [place] [address] Discharge Disposition: 02A Acute Care- Another Institution Attending Physician: Rita Armenta MD Admitting Physician: Rita Armenta MD Referring Physician: Marcial Vu MD Allergies, Adverse Reactions, Alerts Substance Reaction Severity Status No Known Allergies Active Assessment and Plan Extracted from: Title:'2023 Discharge Summary Author:Alonso Schilling MD Date:11/29/23 Patient: JOSE SHANKAR Age: 73 years Sex: Male : 1950 Associated Diagnoses: None Author: Alonso Schilling MD Discharge Summary Service: Spine Service Admission Date/Time: 11/16/23 13:10 Discharge Date and Time: 11/29/23 Referring Provider: Ortho Spine ([facility]) Admitting Physician: Dr. Armenta Discharging Physician: Dr. Armenta Discharge Diagnosis: Paraplegia 2/2 suspected cauda equina BLE DVTs with progressive swelling Admission Diagnosis: Paraplegia 2/2 suspected cauda equina HPI: Patient is 73 year old male with PMHx recent L4-5 PSF (10/23, complicated by seizure/code blue & bilateral PEs where he was sent home on therapeutic lovenox), prostate CA (s/p prostatectomy), melanoma, GERD, HTN, CKD, and obesity who presented to OSH on 11/07 with sudden onset abdominal pain, BLE numbness/tingling, inability to ambulate. Previously had been ambulating with walker since 10/30/23 discharge. Transferred to [facility], MRI with longitudinally extending dorsal epidural and subdural collection T5-T6 through L5-S1??causing severe canal stenosis and cauda equina compression.??Underwent T5-L5 epidural hematoma evac (NSGY consulted for intraop durotomy repair). IVCF placed 11/[address] PE showing decreased clot burden. Patient s/p dex and had wound vac removed prior to discharge from [facility]. Discharged to [facility] on 11/16 instable condition. Patient seen and evaluated by IPR team on 11/16 Hospital Course: The patient was admitted to [facility] to undergo intensive inpatient rehabilitation for functional deficits and debility secondary to the above noted diagnosis and hospital course. They participated well with all disciplines of therapy and made progress as noted below in the score documentation. The following medical issues were addressed during this rehab stay: #. Paraplegia - S/p??T5-L5 laminectomies w/hematoma evacuation and lumbar dural repair??on 11/08/23 - Precautions: Spinal precautions (No bending/twisting, lifting more than 10 lbs. TLSO when OOB) - Therapy: PWC (Group 3) - Follow Up: [facility] #. Bilateral Pulmonary Embolisms #. DVTs - CT PE on 11/09??with improved clot burden. LED's negative on 11/08. IVC filter placed on 11/09. Patient to ask Heme/Ortho spine about removal date iso multiple clots - Hematology: Plan to start prophylactic dosing of lovenox 11/29 (Eventually transition to therapeutic dosing after outpatient follow-ups with both Dr. Vu and Hematology) - Patient w/ bilateral LE edema at [facility]. BLE Duplex w/ multiple clots 11/23. Reports states Deep vein thrombosis involving he bilateral SF junctions, bilateral common femoral, bilateral proximal and mid femoral, right popliteal, and right posterior tibial veins. After discussions between our team, ortho spine, Heme, patient, and family, hold AC. Follow up with Ortho and Heme about starting at later date - Follow up Heme, Ortho spine - Plan for direct admission today (11/29) for evaluation by vascular and heme due to progressive swelling in BLE extending to lower abdomen. Consider CT for evaluation of??clots burden/IVCF and evaluation by vascular surgery. Hematology was willing to see as well if admitted. #. Neurogenic Bladder, suspected #. Urinary Incontinence overflow / urinary retention - Urinary leakage at baseline per patient. Wears depends at home. Tamsulosin - Now likely has LMN bladder secondary to suspected cauda equina injury - Difficulty advancing the catheter. Sofia was replaced in ED on 11/19/23. Will defer urinary retention management to urology. - Follows with urology (Dr. Irene). Follow up 12/13 #. UTI #. Hx of UTI, complex - H/o left renal stones, s/p lithotripsy in Oct 2023, s/p left ureter stenting. Stent possibly not working, follow up with urology. Consider as possible source of infx - UA consistent with UTI. Enterobacter cloacae, sensitive to Macrobid. Macrobid (Through 12/03) - Had appointment for sofia exchange on 11/29, however this was cancelled because of direct admission for 11/29. Likely needs to be seen by urology while inpatient at [facility] for exchange in setting of UTI, since he required wire guidance for prior sofia placement. #. Hyponatremia - 134>129>132. S/p NS Bolus. #. HTN - irbesartan switched to losartan (Stopped). Diltiazem. Held CoQ10 while inpatient #. Elevated Cr - IVF 11/26. CTM (1.24>1.09) #. Diabetes - Possibly switch to home medication (Mounjaro). Provide diabetes education if needed. SSI. CTM glucose and SSI #. Acute on Chronic Pain - Gabapentin. PRN: Tramadol, Tylenol, cyclobenzaprine #. ID - Acyclovir #. Seizure History - Keppra 1000mg BID. Consider neurology follow up #. GERD - Omeprazole switched to pantoprazole #. Allergies - Cetirizine switched to loratadine #. Skin - Decubitus prevention. FARIHA mattress, PODUS. Dry dressing for incision. Sutures: Absorbable. Nystatin (perineum) #. Bowel (BM 11/26) - Toileting schedule. Senna-S PRN. Psyllium BID. Possibly LMN (Consider DC-ing suppository) #. Diet: Nutrition consulted. Diet IDDSI 7, thins (carb consistent). Vit D supplement #. DVT Ppx/Tx: Hold PPx until 1/25. No AC until follow up with Ortho and Heme #. Precautions: Spinal (including TLSO OOB) #. Lines/Tubes/Drains: Sofia catheter (placed 11/19/23) #. Code Status: Full code #. Discharge Plannin/1 #. Appointments: Spine - 12/03 Urology - 12/13 Heme - 12/14 NSGY - 12/24 Functional Status at Discharge: ADL Status [id number] Eating: Independent - (11/29/23) [id number] Oral Hygiene: Independent - (11/27/23) [id number] Upper Body Dressing: Substantial/Maximal assistance - (11/28/23) [id number] Lower Body Dressing: Dependent - (11/28/23) [id number] Toileting Hygiene: Dependent - (11/29/23) [id number] Toilet Transfer: Dependent - (11/27/23) [id number] Shower, Bathe Self: Substantial/Maximal assistance - (11/28/23) Mobility Functional Status [id number] Lying to Sitting Side of Bed Goal: Partial/Moderate assistance - (11/27/23) [id number] Sit to Stand: Not attempted due to medical condition or safety concerns - (11/27/23) [id number] Chair,Bed to Chair Transfer: Dependent - (11/27/23) [id number] Walk 10 Feet: Not attempted due to medical condition or safety concerns - (11/26/23) [id number] Walk 50 Feet with Two Turns: Not attempted due to medical condition or safety concerns - (11/26/23) [id number] Walk 150 Feet: Not attempted due to medical condition or safety concerns - (11/26/23) Mobility Level- Adaptive Equipment: Wheelchair (11/27/23) Mobility- Level Skilled Assist: Supervision (11/27/23) Mobility- Level Comments: SPV for safety (11/27/23) Speech/Language & Cognition Functional Status Comprehension Mode Functional Status: Auditory (11/16/23) Ability to Hear: Adequate - no difficulty in normal conversation, social interaction, listening to TV (11/17/23) Visual Acuity: Adequate - sees fine detail, such as regular print in newspapers/books (11/17/23) Health Literacy SILS: Rarely (11/16/23) [id number] Expression of Ideas and Wants: Expresses complex messages without difficulty and with speech that is clear and easy to understand - 4 (11/28/23) [id number] Understanding Verbal Content: Understands - Clear comprehension without cues or repetitions - 4 (11/28/23) Expression Mode Functional Status: Vocal (11/16/23) Person Orientation IP: Independent (11/27/23) Place Orientation IP: Independent (11/27/23) Time Orientation IP: Independent (11/27/23) Situation Orientation IP: Independent (11/27/23) Biographical Information Orientation IP: Independent (11/27/23) Attention Functional Status - OT: Independent (11/27/23) Attention Functional Status - WOOL HAT HYDRAULICKER: Independent (11/27/23) Memory Functional Status - OT IP: Independent (11/27/23) Memory Functional Status - WOOL HAT HYDRAULICKER IP: Usually Independent (11/27/23) Safety Awareness/Insight - OT: Usually Independent (11/27/23) Safety Awareness/Insight - WOOL HAT HYDRAULICKER: Usually Independent (11/27/23) Simple Problem Solving Func Status OT: Usually Independent (11/27/23) Simple Problem Solving Func Status WOOL HAT HYDRAULICKER: Independent (11/27/23) Complex Problem Solving Func Status OT: Usually Independent (11/27/23) Complex Problem Solving Func Status WOOL HAT HYDRAULICKER: Usually Independent (11/27/23) Discharge Medications: Home Medications (15) Active acetaminophen 500 mg oral tablet 1,000 mg = 2 tab, Oral, q6hr acyclovir 400 mg oral tablet 400 mg = 1 tab, Oral, BID cetirizine 10 mg oral tablet 10 mg = 1 tab, Oral, Before breakfast cholecalciferol 125 mcg (5000 intl units) oral capsule 125 mcg = 1 cap, Oral, Daily Coenzyme Q10 100 mg oral capsule 100 mg = 1 cap, Oral, Daily cyclobenzaprine 5 mg oral tablet 5 mg = 1 tab, PRN, Oral, TID dilTIAZem 240 mg/24 hours oral capsule, extended release 240 mg = 1 cap, Oral, BID docusate-senna 50 mg-8.6 mg oral tablet 2 tab, Oral, BID enoxaparin 80 mg/0.8 mL injectable solution 80 mg = 0.8 mL, Subcutaneous, q12hr gabapentin 300 mg oral capsule 300 mg = 1 cap, Oral, q8hr irbesartan 150 mg oral tablet 150 mg = 1 tab, Oral, Daily levETIRAcetam 1000 mg oral tablet 1,000 mg = 1 tab, Oral, BID omeprazole 20 mg oral delayed release capsule 20 mg = 1 cap, Oral, Before breakfast tamsulosin 0.4 mg oral capsule 0.8 mg = 2 cap, Oral, QDINNER traMADol 50 mg oral tablet 50 mg = 1 tab, PRN, Oral, q4hr Discharge Disposition: This data does not meet import criteria. Daily Progress Note: Subjective: 11/28: Therapy noted increase BLE edema during session. Spoke with patient, family/friends, and Hematology. Preference for direct admission to [facility] for workup/evaluation by vascular surgery and Hematology. Planned for direct admission. 11/29: Patient awake, alert, and appearing clinically stable. Planning for direct admission today Exam: The patient was seen and examined today, on the day of discharge. HEENT: NCAT, primary conjugate gaze Cardio: BLE appear well perfused, warm to touch Pulm: Comfortable on RA Neurologic: Grossly consistent with paraplegia Labs Labs (Last four charted values) WBC 9.8 (NOV 26) H 12.9 (NOV 22) H 13.2 (NOV 19) H 13.4 (NOV 17) Hgb L 8.0 (NOV 26) L 8.8 (NOV 22) L 10.2 (NOV 19) L 9.1 (NOV 17) Hct L 24.4 (NOV 26) L 27.8 (NOV 22) L 32.2 (NOV 19) L 27.4 (NOV 17) Plt L 135 (NOV 26) L 110 (NOV 22) 177 (NOV 19) 171 (NOV 17) Na L 132 (NOV 28) L 129 (NOV 26) L 134 (NOV 22) 139 (NOV 19) K 4.9 (NOV 28) 4.8 (NOV 26) 4.3 (NOV 22) 4.0 (NOV 19) CO2 23 (NOV 28) 23 (NOV 26) 22 (NOV 22) 26 (NOV 19) Cl 98 (NOV 28) L 94 (NOV 26) 97 (NOV 22) 99 (NOV 19) Cr 1.09 (NOV 28) 1.24 (NOV 26) 1.13 (NOV 22) L 0.65 (NOV 19) BUN H 36 (NOV 28) H 46 (NOV 26) H 45 (NOV 22) 24 (NOV 19) Glucose H 131 (NOV 29) H 140 (NOV 28) H 148 (NOV 28) H 191 (NOV 27) Ca 9.3 (NOV 28) 9.3 (NOV 26) 9.1 (NOV 22) 8.5 (NOV 19) Vitals Vital Signs (last 24 hrs) Last Charted Temp Oral 98.4 DegF (NOV 29 05:16) Heart Rate Peripheral 75 bpm (NOV 29 04:33) Resp Rate 16 br/min (NOV 29 04:33) SBP 109 mmHg (NOV 29:33) DBP 69 mmHg (NOV 29 04:33) SpO2 97 % (NOV 29:) Addendum by Geovany CARD, Katerina saenz on November 29, 2023 14:05 [employer] Teaching Attestation I was present with Dr. Schilling during the history and exam. The management was discussed and I agree with the documented findings and plan of care in the note.The patient was seen face to face and the medical and functional status was reviewed. Dc to [facility] medicine service ( direct admission) for LE DVT severe edema, r/o IVC filter thrombosis Vital Signs (last 24 hrs) Last Charted Temp Oral 98.5 DegF (NOV 29 12:09) Heart Rate Peripheral 89 bpm (NOV 29 12:09) Resp Rate 16 br/min (NOV 29 04:33) SBP 132 mmHg (NOV 29 12:09) DBP 89 mmHg (NOV 29 12:09) SpO2 98 % (NOV 29 12:09) Continue comprehensive rehabilitation Medications acetaminophen 500 mg oral tablet 1,000 mg = 2 tab, Oral, q6hr Start Date: 11/16/23 Status: Ordered acyclovir 400 mg oral tablet 400 mg = 1 tab, Oral, BID Start Date: 11/16/23 Status: Ordered cetirizine 10 mg oral tablet 10 mg = 1 tab, Oral, Before breakfast Start Date: 11/16/23 Status: Ordered cholecalciferol 125 mcg (5000 intl units) oral capsule 125 mcg = 1 cap, Cap, Oral, Daily, with food Start Date: 11/16/23 Status: Ordered Coenzyme Q10 100 mg oral capsule 100 mg = 1 cap, Cap, Oral, Daily Start Date: 11/16/23 Status: Ordered cyclobenzaprine 5 mg oral tablet 5 mg = 1 tab, Tab, Oral, TID PRN, Muscle spasms Start Date: 11/16/23 Status: Ordered dilTIAZem 240 mg/24 hours oral capsule, extended release 240 mg = 1 cap, Cap-ER, Oral, BID Start Date: 11/16/23 Status: Ordered docusate-senna 50 mg-8.6 mg oral tablet 2 tab, Tab, Oral, BID, 120 tab Start Date: 11/16/23 Status: Ordered enoxaparin 80 mg/0.8 mL injectable solution 80 mg, = 0.8 mL, Soln-Inj, Subcutaneous, q12hr, START DATE 11/22 Start Date: 11/16/23 Status: Ordered gabapentin 300 mg oral capsule 300 mg, = 1 cap, Cap, Oral, q8hr Start Date: 11/16/23 Status: Ordered irbesartan 150 mg oral tablet 150 mg = 1 tab, Tab, Oral, Daily Start Date: 11/16/23 Status: Ordered levETIRAcetam 1000 mg oral tablet 1,000 mg = 1 tab, Tab, Oral, BID Start Date: 11/16/23 Status: Ordered omeprazole 20 mg oral delayed release capsule 20 mg = 1 cap, Cap-DR, Oral, Before breakfast Start Date: 11/16/23 Status: Ordered tamsulosin 0.4 mg oral capsule 0.8 mg = 2 cap, Cap, Oral, QDINNER Start Date: 11/16/23 Status: Ordered traMADol 50 mg oral tablet 50 mg = 1 tab, Tab, Oral, q4hr PRN, MD to specify parameters for use Start Date: 11/16/23 Status: Ordered Problem List Condition Confirmation Course Effective Dates Status [facility] ADL - activity of daily living Confirmed Active Balance Confirmed Active Cognitive impairment Confirmed Active Weakness Confirmed Active Results Laboratory List Name Date Diff Auto - BJ/BSP (DiffAuto) 11/29/23 eGFR - BJ (eGFR) 11/29/[address] - BJ 11/29/23 Complete Blood Count w/Diff - BJ 11/29/23 Glucose CS - BJ 11/29/23 Glucose, POC 11/29/23 Glucose, POC 11/28/23 Glucose CS - BJ (CS Glucose) 11/28/23 eGFR - BJ (eGFR) 11/28/23 Glucose, POC 11/28/[address] - BJ (BMP Pl - BJ) 11/28/23 Diff Auto - BJ/BSP (DiffAuto) 11/26/23 eGFR - BJ (eGFR) 11/26/[address] - BJ 11/26/23 Complete Blood Count w/Diff - BJ 11/26/23 Glucose CS - BJ 11/26/23 Diff Auto - BJ/BSP (DiffAuto) 11/22/[address] - BJ 11/22/23 Complete Blood Count w/Diff - BJ 11/22/23 Urinalysis w/Ref Tres/CS - BJ 11/21/23 Urinalysis, Microscopic - BJ (UA Micro ( All Sites)) 11/21/23 Vitamin D 25 Hydroxy - BJ 11/17/23 Most recent to oldest [Reference Range]: 1 2 3 Creatinine Level 0.94 mg/dL *NA* (11/29/23 6:00 AM) 1.09 mg/dL *NA* (11/28/23 6:00 AM) 1.24 mg/dL *NA* (11/26/23 1:45 PM) Protein UR - BJ [Negative] 2+ 1 *NA* (11/21/23 6:55 PM) eGFR - BJ [>=60 mL/min/1.73 m2] 86 mL/min/1.73 m2 2 *NA* (11/29/23 6:00 AM) 72 mL/min/1.73 m2 3 *NA* (11/28/23 6:00 AM) 62 mL/min/1.73 m2 4 *NA* (11/26/23 1:45 PM) Estimated Creatinine Clearance 64.84 mL/min 5 (11/29/23 6:00 AM) 59.49 mL/min 6 (11/28/23 6:00 AM) 52.29 mL/min 7 (11/26/23 1:45 PM) Glucose POC RALS [74-106 mg/dL] 131 mg/dL *HI* (11/29/23 5:53 AM) 140 mg/dL *HI* (11/28/23 8:57 PM) 148 mg/dL *HI* (11/28/23 6:54 AM) Blood Glucose Stick Site Finger, Right (11/24/23 6:09 AM) Finger, Left (11/23/23 6:20 AM) Neutrophils % Auto - BJ 75.7 % 8 *NA* (11/29/23 6:00 AM) 81.4 % 9 *NA* (11/26/23 1:45 PM) 74.1 % 10 *NA* (11/22/23 6:00 AM) Monocytes Abs Auto - BJ [0.2-0.8 thousand/mm3] 0.6 thousand/mm3 11 *NA* (11/29/23 6:00 AM) 0.7 thousand/mm3 12 *NA* (11/26/23 1:45 PM) 1.1 thousand/mm3 13 *HI* (11/22/23 6:00 AM) Ketones UR Ql - BJ [Negative] Negative 14 *NA* (11/21/23 6:55 PM) Hyaline Cast UR - BJ [0-10 /LPF] 6-10 /LPF 15 *NA* (11/21/23 6:55 PM) Anion Gap - BJ [2-15 mmol/L] 10 mmol/L 16 *NA* (11/29/23 6:00 AM) 11 mmol/L 17 *NA* (11/28/23 6:00 AM) 12 mmol/L 18 *NA* (11/26/23 1:45 PM) Vitamin D 25 Hydroxy - BJ [30-80 ng/mL] 50 ng/mL 19 *NA* (11/17/23 6:00 AM) Bilirubin UR - BJ [Negative] Negative 20 *NA* (11/21/23 6:55 PM) Eosinophils % Auto - BJ 4.3 % 21 *NA* (11/29/23 6:00 AM) 2.6 % 22 *NA* (11/26/23 1:45 PM) 3.3 % 23 *NA* (11/22/23 6:00 AM) ALT - BJ [7-55 units/L] 80 units/L 24 *HI* (11/29/23 6:00 AM) 50 units/L 25 *NA* (11/26/23 1:45 PM) 36 units/L 26 *NA* (11/22/23 6:00 AM) Neutrophils Abs Auto - BJ [1.5-6.5 thousand/mm3] 6.1 thousand/mm3 27 *NA* (11/29/23 6:00 AM) 8.0 thousand/mm3 28 *HI* (11/26/23 1:45 PM) 9.6 thousand/mm3 29 *HI* (11/22/23 6:00 AM) Lymphocytes Abs Auto - BJ [0.8-3.3 thousand/mm3] 0.9 thousand/mm3 30 *NA* (11/29/23 6:00 AM) 0.7 thousand/mm3 31 *LOW* (11/26/23 1:45 PM) 1.6 thousand/mm3 32 *NA* (11/22/23 6:00 AM) Hemoglobin - BJ [13.0-17.5 g/dL] 7.7 g/dL 33 *LOW* (11/29/23 6:00 AM) 8.0 g/dL 34 *LOW* (11/26/23 1:45 PM) 8.8 g/dL 35 *LOW* (11/22/23 6:00 AM) Basophils Abs Auto - BJ [0.0-0.1 thousand/mm3] 0.0 thousand/mm3 36 *NA* (11/29/23 6:00 AM) 0.0 thousand/mm3 37 *NA* (11/26/23 1:45 PM) 0.0 thousand/mm3 38 *NA* (11/22/23 6:00 AM) Urobilinogen UR Ql - BJ [<2.0 mg/dL] <2.0 mg/dL 39 *NA* (11/21/23 6:55 PM) Chloride - BJ [97-110 mmol/L] 99 mmol/L 40 *NA* (11/29/23 6:00 AM) 98 mmol/L 41 *NA* (11/28/23 6:00 AM) 94 mmol/L 42 *LOW* (11/26/23 1:45 PM) Bacteria UR - BJ 1+ 43 *NA* (11/21/23 6:55 PM) Specific [place] UR - BJ [1.003-1.030] 1.023 44 *NA* (11/21/23 6:55 PM) Calcium - BJ [8.5-10.3 mg/dL] 8.9 mg/dL 45 *NA* (11/29/23 6:00 AM) 9.3 mg/dL 46 *NA* (11/28/23 6:00 AM) 9.3 mg/dL 47 *NA* (11/26/23 1:45 PM) Platelets - BJ [150-400 thousand/mm3] 150 thousand/mm3 48 *NA* (11/29/23 6:00 AM) 135 thousand/mm3 49 *LOW* (11/26/23 1:45 PM) 110 thousand/mm3 50 *LOW* (11/22/23 6:00 AM) Sodium - BJ [135-145 mmol/L] 133 mmol/L 51 *LOW* (11/29/23 6:00 AM) 132 mmol/L 52 *LOW* (11/28/23 6:00 AM) 129 mmol/L 53 *LOW* (11/26/23 1:45 PM) Monocytes % Auto - BJ 7.2 % 54 *NA* (11/29/23 6:00 AM) 7.4 % 55 *NA* (11/26/23 1:45 PM) 8.6 % 56 *NA* (11/22/23 6:00 AM) Eosinophils Abs Auto - BJ [0.0-0.5 thousand/mm3] 0.4 thousand/mm3 57 *NA* (11/29/23 6:00 AM) 0.3 thousand/mm3 58 *NA* (11/26/23 1:45 PM) 0.4 thousand/mm3 59 *NA* (11/22/23 6:00 AM) MCHC - BJ [32.3-35.7 g/dL] 32.2 g/dL 60 *LOW* (11/29/23 6:00 AM) 32.8 g/dL 61 *NA* (11/26/23 1:45 PM) 31.7 g/dL 62 *LOW* (11/22/23 6:00 AM) MPV - BJ [9.1-12.3 fL] 10.7 fL 63 *NA* (11/29/23 6:00 AM) 11.9 fL 64 *NA* (11/26/23 1:45 PM) 12.4 fL 65 *HI* (11/22/23 6:00 AM) MCV - BJ [81.3-96.4 fL] 95.2 fL 66 *NA* (11/29/23 6:00 AM) 96.4 fL 67 *NA* (11/26/23 1:45 PM) 98.2 fL 68 *HI* (11/22/23 6:00 AM) Color UR - BJ [Yellow] Yellow 69 *NA* (11/21/23 6:55 PM) MCH - BJ [27.1-33.3 pg] 30.7 pg 70 *NA* (11/29/23 6:00 AM) 31.6 pg 71 *NA* (11/26/23 1:45 PM) 31.1 pg 72 *NA* (11/22/23 6:00 AM) Potassium, Plasma - BJ [3.3-4.9 mmol/L] 4.5 mmol/L 73 *NA* (11/29/23 6:00 AM) 4.9 mmol/L 74 *NA* (11/28/23 6:00 AM) 4.8 mmol/L 75 *NA* (11/26/23 1:45 PM) Creatinine - BJ [0.80-1.30 mg/dL] 0.94 mg/dL 76 *NA* (11/29/23 6:00 AM) 1.09 mg/dL 77 *NA* (11/28/23 6:00 AM) 1.24 mg/dL 78 *NA* (11/26/23 1:45 PM) Leukocyte Esterase UR - BJ [Negative] 3+ 79 *NA* (11/21/23 6:55 PM) Yeast UR - BJ Trace 80 *NA* (11/21/23 6:55 PM) Nitrite UR Ql - BJ [Negative] Negative 81 *NA* (11/21/23 6:55 PM) RBC - BJ [4.30-5.80 m/mm3] 2.51 m/mm3 82 *LOW* (11/29/23 6:00 AM) 2.53 m/mm3 83 *LOW* (11/26/23 1:45 PM) 2.83 m/mm3 84 *LOW* (11/22/23 6:00 AM) Blood UR Ql - BJ [Negative] 3+ 85 *NA* (11/21/23 6:55 PM) BUN - BJ [6-25 mg/dL] 29 mg/dL 86 *HI* (11/29/23 6:00 AM) 36 mg/dL 87 *HI* (11/28/23 6:00 AM) 46 mg/dL 88 *HI* (11/26/23 1:45 PM) Lymphocytes % Auto - BJ 11.5 % 89 *NA* (11/29/23 6:00 AM) 7.5 % 90 *NA* (11/26/23 1:45 PM) 12.7 % 91 *NA* (11/22/23 6:00 AM) Albumin - BJ [3.5-5.0 g/dL] 2.8 g/dL 92 *LOW* (11/29/23 6:00 AM) 3.1 g/dL 93 *LOW* (11/26/23 1:45 PM) 3.2 g/dL 94 *LOW* (11/22/23 6:00 AM) Glucose UR Ql - BJ [Negative] Negative 95 *NA* (11/21/23 6:55 PM) Carbon Dioxide - BJ [22-32 mmol/L] 24 mmol/L 96 *NA* (11/29/23 6:00 AM) 23 mmol/L 97 *NA* (11/28/23 6:00 AM) 23 mmol/L 98 *NA* (11/26/23 1:45 PM) Hematocrit - BJ [38.9-50.3 %] 23.9 % 99 *LOW* (11/29/23 6:00 AM) 24.4 % 100 *LOW* (11/26/23 1:45 PM) 27.8 % 101 *LOW* (11/22/23 6:00 AM) Basophils % Auto - BJ 0.2 % 102 *NA* (11/29/23 6:00 AM) 0.2 % 103 *NA* (11/26/23 1:45 PM) 0.2 % 104 *NA* (11/22/23 6:00 AM) RBC UR - BJ [0-2 /HPF] >50 /HPF 105 *NA* (11/21/23 6:55 PM) Protein, Plasma - BJ [6.5-8.5 g/dL] 6.0 g/dL 106 *LOW* (11/29/23 6:00 AM) 6.2 g/dL 107 *LOW* (11/26/23 1:45 PM) 6.3 g/dL 108 *LOW* (11/22/23 6:00 AM) WBC - BJ [3.8-9.9 thousand/mm3] 8.1 thousand/mm3 109 *NA* (11/29/23 6:00 AM) 9.8 thousand/mm3 110 *NA* (11/26/23 1:45 PM) 12.9 thousand/mm3 111 *HI* (11/22/23 6:00 AM) Clarity UR - BJ [Clear] Turbid 112 *NA* (11/21/23 6:55 PM) AST - BJ [10-50 units/L] 65 units/L 113 *HI* (11/29/23 6:00 AM) 35 units/L 114 *NA* (11/26/23 1:45 PM) 27 units/L 115 *NA* (11/22/23 6:00 AM) Bilirubin, Total - BJ [0.1-1.2 mg/dL] 0.4 mg/dL 116 *NA* (11/29/23 6:00 AM) 0.3 mg/dL 117 *NA* (11/26/23 1:45 PM) 0.5 mg/dL 118 *NA* (11/22/23 6:00 AM) Glucose - BJ [70-199 mg/dL] 105 mg/dL 11 9 *NA* (11/29/23 6:00 AM) 113 mg/dL 120 *NA* (11/28/23 6:00 AM) 130 mg/dL 121 *NA* (11/26/23 1:45 PM) WBC UR - BJ [0-5 /HPF] >50 /HPF 122 *NA* (11/21/23 6:55 PM) Alkaline Phosphatase - BJ [40-130 units/L] 139 units/L 123 *HI* (11/29/23 6:00 AM) 139 units/L 124 *HI* (11/26/23 1:45 PM) 102 units/L 125 *NA* (11/22/23 6:00 AM) pH UR Ql - BJ 6.0 126 *NA* (11/21/23 6:55 PM) Blood Glucose, Capillary [74-106 mg/dL] 131 mg/dL *HI* (11/29/23 6:57 AM) 117 mg/dL *HI* (11/27/23 6:42 AM) 149 mg/dL *HI* (11/26/23 9:09 PM) Reflex Comment UR - BJ See Below 127 *NA* (11/21/23 6:55 PM) See Below 128 *NA* (11/21/23 6:55 PM) RDW CV - BJ [11.1-14.9 %] 15.2 % 129 *HI* (11/29/23 6:00 AM) 15.4 % 130 *HI* (11/26/23 1:45 PM) 16.0 % 131 *HI* (11/22/23 6:00 AM) RDW SD - BJ [35.7-48.1 fL] 52.6 fL 132 *HI* (11/29/23 6:00 AM) 54.5 fL 133 *HI* (11/26/23 1:45 PM) 57.7 fL 134 *HI* (11/22/23 6:00 AM) N RBC Abs Auto - BJ [0.00-0.01 thousand/mm3] 0.00 thousand/mm3 135 *NA* (11/29/23 6:00 AM) 0.00 thousand/mm3 136 *NA* (11/26/23 1:45 PM) 0.00 thousand/mm3 137 *NA* (11/22/23 6:00 AM) Imm Gran Abs Auto - BJ [0.0-0.1 thousand/mm3] 0.1 thousand/mm3 138 *NA* (11/29/23 6:00 AM) 0.1 thousand/mm3 139 *NA* (11/26/23 1:45 PM) 0.1 thousand/mm3 140 *NA* (11/22/23 6:00 AM) Imm Gran % Auto - BJ 1.1 % 141 *NA* (11/29/23 6:00 AM) 0.9 % 142 *NA* (11/26/23 1:45 PM) 1.1 % 143 *NA* (11/22/23 6:00 AM) 1Result Comment: Testing performed by: [facility], [address] [place] [id number] 2Result Comment: Interpretive Data Reference Interval Normal >/= 90 mL/min/1.73m2 Mildly decreased* 60 - 89 mL/min/1.73m2 Mildly to moderately decreased 45 - 59 mL/min/1.73m2 Moderately to severely decreased 30 - 44 mL/min/1.73m2 Severely decreased 15 - 29 mL/min/1.73m2 Kidney Failure < 15 mL/min/1.73m2 *Relative to young adult level Estimated glomerular filtration rate is determined by the 2020 CKD-EPI equation recommended by the [employer] (A Unifying Approach to GFR Estimation: Recommendations of the NKF-ASK Task Force on Reassessing the Inclusion of Race in Diagnosing Kidney Disease, JASN 2021). The CKD-EPI equation should not be used for patients with unstable renal function and has not been validated in children and those over 70. Current interpretive data was last reviewed 2021. Testing performed by: [facility], [address] [place] [address]., [id number] [place] [address] (CLIA ID: [id number]) Lab Quotation Clerk: Andi Duvall M.D. 3Result Comment: Interpretive Data Reference Interval Normal >/= 90 mL/min/1.73m2 Mildly decreased* 60 - 89 mL/min/1.73m2 Mildly to moderately decreased 45 - 59 mL/min/1.73m2 Moderately to severely decreased 30 - 44 mL/min/1.73m2 Severely decreased 15 - 29 mL/min/1.73m2 Kidney Failure < 15 mL/min/1.73m2 *Relative to young adult level Estimated glomerular filtration rate is determined by the 2020 CKD-EPI equation recommended by the [employer] (A Unifying Approach to GFR Estimation: Recommendations of the NKF-ASK Task Force on Reassessing the Inclusion of Race in Diagnosing Kidney Disease, JASN 2021). The CKD-EPI equation should not be used for patients with unstable renal function and has not been validated in children and those over 70. Current interpretive data was last reviewed 2021. Testing performed by: [facility], [address] [place]., [address] [place] [address] (CLIA ID: [id number]) Lab Quotation Clerk: Andi Duvall M.D. 4Result Comment: Interpretive Data Reference Interval Normal >/= 90 mL/min/1.73m2 Mildly decreased* 60 - 89 mL/min/1.73m2 Mildly to moderately decreased 45 - 59 mL/min/1.73m2 Moderately to severely decreased 30 - 44 mL/min/1.73m2 Severely decreased 15 - 29 mL/min/1.73m2 Kidney Failure < 15 mL/min/1.73m2 *Relative to young adult level Estimated glomerular filtration rate is determined by the 2020 CKD-EPI equation recommended by the National [employer] (A Unifying Approach to GFR Estimation: Recommendations of the NKF-ASK Task Force on Reassessing the Inclusion of Race in Diagnosing Kidney Disease, JASN 2020). The CKD-EPI equation should not be used for patients with unstable renal function and has not been validated in children and those over 70. Current interpretive data was last reviewed 2021. Testing performed by: [facility], [address] [place]., [address] [place] [address] (CLIA ID: [id number]) Lab Quotation Clerk: Andi Duvall M.D. 5Result Comment: Calculated using method: Cockcroft-Gault (default) Calculated using Formula : (140-ageInYears)*IBW/(72) Age: 73 (48823326395.0) Serum Creatinine: 0.94 mg/dL (02630227077.0) Height: 173 cm (57352971807.0) Weight: 98.9 kg (IBW = 68.654 kg) 6Result Comment: Calculated using method: Cockcroft-Gault (default) Calculated using Formula : (140-ageInYears)*IBW/(72*scrInMGperDL) Age: 73 (72965654286.0) Serum Creatinine: 1.09 mg/dL (75599784368.0) Height: 173 cm (23903224523.0) Weight: 98.9 kg (IBW = 68.654 kg) 7Result Comment: Calculated using method: Cockcroft-Gault (default) Calculated using Formula : (140-ageInYears)*IBW/(72*scrInMGperDL) Age: 73 (60101666280.0) Serum Creatinine: 1.24 mg/dL (09287611220.0) Height: 173 cm (39737906900.0) Weight: 98.9 kg (IBW = 68.654 kg) 8Result Comment: Interpretive Data Percent cell count reference ranges are not reported, since discordance with absolute values may lead to misinterpretation of CBC data. Current Interpretive Data was last revised on 2018. Testing performed by: [facility], [address] [place] [address], 118[address] 9Result Comment: Interpretive Data Percent cell count reference ranges are not reported, since discordance with absolute values may lead to misinterpretation of CBC data. Current Interpretive Data was last revised on 2018. Testing performed by: [facility], [address] [place] [address], 076[address] 10Result Comment: Interpretive Data Percent cell count reference ranges are not reported, since discordance with absolute values may lead to misinterpretation of CBC data. Current Interpretive Data was last revised on 2018. Testing performed by: [facility], [address] [place] [address], 24632 11Result Comment: Testing performed by: [facility], [address] [place] [address], 35796 12Result Comment: Testing performed by: [facility], [address] [place] [address]., 06[address] 13Result Comment: Testing performed by: [facility], [address] [place] [address], 29942 14Result Comment: Testing performed by: [facility], [address] [place] [address]., 28651 15Result Comment: Testing performed by: [facility], [address] [place] [address], 53736 16Result Comment: Testing performed by: [facility], [address] [place] [address], 53683 17Result Comment: Testing performed by: [facility], [address] [facility], [address] 18Result Comment: Testing performed by: [facility], [address] [facility], 58685 19Result Comment: Testing performed by: [facility], [address] [facility], 19675 20Result Comment: Testing performed by: [facility], [address] [place] [address], 96107 21Result Comment: Interpretive Data Percent cell count reference ranges are not reported, since discordance with absolute values may lead to misinterpretation of CBC data. Current Interpretive Data was last revised on 2018. Testing performed by: [facility], [address] [place] [address], 61636 22Result Comment: Interpretive Data Percent cell count reference ranges are not reported, since discordance with absolute values may lead to misinterpretation of CBC data. Current Interpretive Data was last revised on 2018. Testing performed by: [facility], [address] [place] [address], 39750 23Result Comment: Interpretive Data Percent cell count reference ranges are not reported, since discordance with absolute values may lead to misinterpretation of CBC data. Current Interpretive Data was last revised on 2018. Testing performed by: [facility], [address] [place] [address]., 65390 24Result Comment: Testing performed by: [facility], [address] [place] [address]., 64688 25Result Comment: Testing performed by: [facility], [address] [place] [address], 37483 26Result Comment: Testing performed by: [facility], [address] [place] [address], 05794 27Result Comment: Testing performed by: [facility], [address] [facility], [place]., [address] 28Result Comment: Testing performed by: [facility], [address] [facility], [place]., [address] 29Result Comment: Testing performed by: [facility], [address] [facility], [facility], 527[address] 30Result Comment: Testing performed by: [facility], [address] [facility], [facility], 19631 31Result Comment: Testing performed by: [facility], [address] [facility], [facility], 64551 32Result Comment: Testing performed by: [facility], [address] [facility], [facility], 02180 33Result Comment: Testing performed by: [facility], [address] [facility], [facility], 82620 34Result Comment: Testing performed by: [facility], [address] [facility], [place]., [address] 35Result Comment: Testing performed by: [facility], [address] [facility], [place]., [address] 36Result Comment: Testing performed by: [facility], [address] [facility], [place]., [address] 37Result Comment: Testing performed by: [facility], [address] [facility], [facility], 03053 38Result Comment: Testing performed by: [facility], [address] [facility], [facility], 98869 39Result Comment: Testing performed by: [facility], [address] [facility], [facility], 82855 40Result Comment: Testing performed by: [facility], [address] [facility], [place]., [address] 41Result Comment: Testing performed by: [facility], [address] [facility], [facility], 56440 42Result Comment: Testing performed by: [facility], [address] [facility], [facility], 02275 43Result Comment: Testing performed by: [facility], [address] [facility], [facility], 29872 44Result Comment: Testing performed by: [facility], [address] [facility], 35694 45Result Comment: Testing performed by: [facility], [address] [facility], 20442 46Result Comment: Testing performed by: [facility], [address] [facility], 27809 47Result Comment: Testing performed by: [facility], [address] [facility], 897[address] 48Result Comment: Testing performed by: [facility], [address] [place] [address], 46947 49Result Comment: Testing performed by: [facility], [address] [facility], 091[address] 50Result Comment: Testing performed by: [facility], [address] [facility], 67703 51Result Comment: Testing performed by: [facility], [address] [place] [address], 39701 52Result Comment: Testing performed by: [facility], [address] [facility], 78[address] 53Result Comment: Testing performed by: [facility], [address] [facility], 08151 54Result Comment: Interpretive Data Percent cell count reference ranges are not reported, since discordance with absolute values may lead to misinterpretation of CBC data. Current Interpretive Data was last revised on 2018. Testing performed by: [facility], [address] [facility], 06[address] 55Result Comment: Interpretive Data Percent cell count reference ranges are not reported, since discordance with absolute values may lead to misinterpretation of CBC data. Current Interpretive Data was last revised on 2018. Testing performed by: [facility], [address] [place] [address], 57763 56Result Comment: Interpretive Data Percent cell count reference ranges are not reported, since discordance with absolute values may lead to misinterpretation of CBC data. Current Interpretive Data was last revised on 2018. Testing performed by: [facility], [address] [place] [address], 47252 57Result Comment: Testing performed by: [facility], [address] [place] [address], 67121 58Result Comment: Testing performed by: [facility], [address] [place] [address], 54445 59Result Comment: Testing performed by: [facility], [address] [place] [address], 14253 60Result Comment: Testing performed by: [facility], [address] [place] [address], 43903 61Result Comment: Testing performed by: [facility], [address] [place] [address]., 10458 62Result Comment: Testing performed by: [facility], [address] [place] [address], 55451 63Result Comment: Testing performed by: [facility], [address] [place] [address], 48257 64Result Comment: Testing performed by: [facility], [address] [place] [address], 62504 65Result Comment: Testing performed by: [facility], [address] [place] [address], 03967 66Result Comment: Testing performed by: [facility], [address] [place] [address], 28393 67Result Comment: Testing performed by: [facility], [address] [facility], [place]., [address] 68Result Comment: Testing performed by: [facility], [address] [facility], [facility], 34895 69Result Comment: Testing performed by: [facility], [address] [facility], [facility], 00938 70Result Comment: Testing performed by: [facility], [address] [facility], [facility], 24817 71Result Comment: Testing performed by: [facility], [address] [facility], [facility], 36652 72Result Comment: Testing performed by: [facility], [address] [facility], [facility], 29883 73Result Comment: Testing performed by: [facility], [address] [facility], [facility], 20175 74Result Comment: Testing performed by: [facility], [address] [facility], [place]., [address] 75Result Comment: Testing performed by: [facility], [address] [facility], [place]., [address] 76Result Comment: Testing performed by: [facility], [address] [place] [address], [place]., [address] 77Result Comment: Testing performed by: [facility], [address] [facility], [place]., [address] 78Result Comment: Testing performed by: [facility], [address] [facility], [place]., [address] 79Result Comment: Testing performed by: [facility], [address] [facility], [facility], 42718 80Result Comment: Testing performed by: [facility], [address] [facility], [facility], 76081 81Result Comment: Testing performed by: [facility], [address] [place] [address] 82Result Comment: Testing performed by: [facility], [address] [facility], 60276 83Result Comment: Testing performed by: [facility], [address] [facility], 62197 84Result Comment: Testing performed by: [facility], [address] [facility], 56304 85Result Comment: Testing performed by: [facility], [address] [facility], 53280 86Result Comment: Testing performed by: [facility], [address] [place] [address], 23262 87Result Comment: Testing performed by: [facility], [address] [place] [address], 10240 88Result Comment: Testing performed by: [facility], [address] [place] [address], 08319 89Result Comment: Interpretive Data Percent cell count reference ranges are not reported, since discordance with absolute values may lead to misinterpretation of CBC data. Current Interpretive Data was last revised on 2018. Testing performed by: [facility], [address] [place] [address], 32515 90Result Comment: Interpretive Data Percent cell count reference ranges are not reported, since discordance with absolute values may lead to misinterpretation of CBC data. Current Interpretive Data was last revised on 2018. Testing performed by: [facility], [address] [place] [address], 13896 91Result Comment: Interpretive Data Percent cell count reference ranges are not reported, since discordance with absolute values may lead to misinterpretation of CBC data. Current Interpretive Data was last revised on 2018. Testing performed by: [facility], [address] [place] [address], 66739 92Result Comment: Testing performed by: [facility], [address] [facility], [facility], 46933 93Result Comment: Testing performed by: [facility], [address] [facility], 74169 94Result Comment: Testing performed by: [facility], [address] [facility], 91675 95Result Comment: Testing performed by: [facility], [address] [facility], 13638 96Result Comment: Testing performed by: [facility], [address] [facility], 35867 97Result Comment: Testing performed by: [facility], [address] [facility], 91660 98Result Comment: Testing performed by: [facility], [address] [place] [address], 28279 99Result Comment: Testing performed by: [facility], [address] [facility], 88134 100Result Comment: Testing performed by: [facility], [address] [place] [address], 46692 101Result Comment: Testing performed by: [facility], [address] [place] [address], 98309 102Result Comment: Interpretive Data Percent cell count reference ranges are not reported, since discordance with absolute values may lead to misinterpretation of CBC data. Current Interpretive Data was last revised on 2018. Testing performed by: [facility], [address] [facility], 00152 103Result Comment: Interpretive Data Percent cell count reference ranges are not reported, since discordance with absolute values may lead to misinterpretation of CBC data. Current Interpretive Data was last revised on 2018. Testing performed by: [facility], [address] [facility], 60211 104Result Comment: Interpretive Data Percent cell count reference ranges are not reported, since discordance with absolute values may lead to misinterpretation of CBC data. Current Interpretive Data was last revised on 2018. Testing performed by: [facility], [address] [facility], 60232 105Result Comment: Testing performed by: [facility], [address] [place] [address], 31842 106Result Comment: Testing performed by: [facility], [address] [place] [address], 55924 107Result Comment: Testing performed by: [facility], [address] [place] [address], 77341 108Result Comment: Testing performed by: [facility], [address] [place] [address], 24874 109Result Comment: Testing performed by: [facility], [address] [place] [address], 28979 110Result Comment: Testing performed by: [facility], [address] [place] [address], 40881 111Result Comment: Testing performed by: [facility], [address] [place] [address], 87374 112Result Comment: Testing performed by: [facility], [address] [place] [address], 97372 113Result Comment: Testing performed by: [facility], [address] [place] [address], 46784 114Result Comment: Testing performed by: [facility], [address] [place] [address], 97189 115Result Comment: Testing performed by: [facility], [address] [place] [address], 40222 116Result Comment: Testing performed by: [facility], [address] [place] [address], 11578 117Result Comment: Testing performed by: [facility], [address] [place] [address] 118Result Comment: Testing performed by: [facility], [address] [place] [address]., 19910 119Result Comment: Interpretive Data Fasting glucose >/= 126 mg/dl is diagnostic for diabetes. Fasting is defined as no caloric intake for at least 8 hours. Fasting glucose between 100 mg/dl to 125 mg/dl is diagnostic of prediabetes. In a patient with classic symptoms of hyperglycemia or hyperglycemic crisis, a random glucose >/= 200 mg/dl is diagnostic for diabetes. In the absence of unequivocal hyperglycemia, results should be confirmed by repeat testing. The classification and Diagnosis of Diabetes Diabetes Care 2021; 46: S19-S40. Current interpretive data was last revised 2022. Testing performed by: [facility], [address] [place] [address]., 40[address] [place] [address] (CLIA ID: [id number]) Lab Quotation Clerk: Andi Duvall M.D. 120Result Comment: Interpretive Data Fasting glucose >/= 126 mg/dl is diagnostic for diabetes. Fasting is defined as no caloric intake for at least 8 hours. Fasting glucose between 100 mg/dl to 125 mg/dl is diagnostic of prediabetes. In a patient with classic symptoms of hyperglycemia or hyperglycemic crisis, a random glucose >/= 200 mg/dl is diagnostic for diabetes. In the absence of unequivocal hyperglycemia, results should be confirmed by repeat testing. The classification and Diagnosis of Diabetes Diabetes Care 2021; 46: S19-S40. Current interpretive data was last revised 2022. Testing performed by: [facility], [address] [place] [address]., 350[address] [place] [address] (CLIA ID: [id number]) Lab Quotation Clerk: Andi Duvall M.D. 121Result Comment: Interpretive Data Fasting glucose >/= 126 mg/dl is diagnostic for diabetes. Fasting is defined as no caloric intake for at least 8 hours. Fasting glucose between 100 mg/dl to 125 mg/dl is diagnostic of prediabetes. In a patient with classic symptoms of hyperglycemia or hyperglycemic crisis, a random glucose >/= 200 mg/dl is diagnostic for diabetes. In the absence of unequivocal hyperglycemia, results should be confirmed by repeat testing. The classification and Diagnosis of Diabetes Diabetes Care 202; 46: S19-S40. Current interpretive data was last revised 2022. Testing performed by: [facility], [address] [place] [address]., 80856 [place] [address] (CLIA ID: [id number]) Lab Quotation Clerk: Andi Duvall M.D. 122Result Comment: Testing performed by: [facility], [address] [place] [address], 02305 123Result Comment: Testing performed by: [facility], [address] [place] [address], 93456 124Result Comment: Testing performed by: [facility], [address] [place] [address], 74630 125Result Comment: Testing performed by: [facility], [address] [place] [address], 35228 126Result Comment: Interpretive Data ?Urine pH is affected by diet, medications, systemic acid-base disturbances, and renal tubular function. pH may affect urinary stone formation. For example, urine pH below 6.0 may help reduce the tendency for calcium phosphate stones and pH greater than 6.0 may reduce the tendency for uric acid stone formation. Source: [facility] [employer] 360 Current Interpretive Data was last revised on 2017 Testing performed by: [facility], [address] [place] [address]., 36231 127Result Comment: Reflex to microscopic UA will be performed. Testing performed by: [facility], [address] [place] [address], 46666 128Result Comment: Reflex to urine culture will be performed. Testing performed by: [facility], [address] [place] [address], 03535 129Result Comment: Testing performed by: [facility], [address] [facility], [facility], 66902 130Result Comment: Testing performed by: [facility], [address] [facility], [facility], 35438 131Result Comment: Testing performed by: [facility], [address] [place] [address], 56030 132Result Comment: Testing performed by: [facility], [address] [place] [address], 09256 133Result Comment: Testing performed by: [facility], [address] [facility], 07463 134Result Comment: Testing performed by: [facility], [address] [place] [address], 13630 135Result Comment: Testing performed by: [facility], [address] [place] [address], 98976 136Result Comment: Testing performed by: [facility], [address] [place] [address], 07821 137Result Comment: Testing performed by: [facility], [address] [place] [address], 21837 138Result Comment: Testing performed by: [facility], [address] [place] [address], 82596 139Result Comment: Testing performed by: [facility], [address] [place] [address], 56084 140Result Comment: Testing performed by: [facility], [address] [place] [address], 18599 141Result Comment: Interpretive Data Percent cell count reference ranges are not reported, since discordance with absolute values may lead to misinterpretation of CBC data. Current Interpretive Data was last revised on 2018. Testing performed by: [facility], [address] [facility], [place]., [address] 142Result Comment: Interpretive Data Percent cell count reference ranges are not reported, since discordance with absolute values may lead to misinterpretation of CBC data. Current Interpretive Data was last revised on 2018. Testing performed by: [facility], [address] [place] [address] 143Result Comment: Interpretive Data Percent cell count reference ranges are not reported, since discordance with absolute values may lead to misinterpretation of CBC data. Current Interpretive Data was last revised on 2018. Testing performed by: [facility], [address] [place] [address] Vital Signs Most recent to oldest [Reference Range]: 1 2 3 Temperature Oral F [96.4-99.1 DegF] 97.8 DegF (11/29/23 4:26 PM) 98.5 DegF (11/29/23 12:09 PM) 98.4 DegF (11/29/23 5:16 AM) Peripheral Pulse Rate [60-100 bpm] 74 bpm (11/29/23 4:26 PM) 89 bpm (11/29/23 12:09 PM) 75 bpm (11/29/23 4:33 AM) Respiratory Rate [14-20 br/min] 18 br/min (11/29/23 4:26 PM) 16 br/min (11/29/23 4:33 AM) 16 br/min (11/28/23 7:40 PM) Blood Pressure [90-140/60-90 mmHg] 114/68mmHg (11/29/23 4:26 PM) 132/89mmHg (11/29/23 12:09 PM) 109/69mmHg (11/29/23 4:33 AM) Mean Arterial Pressure, Cuff 82 mmHg (11/29/23 4:33 AM) 104 mmHg (11/28/23 7:40 PM) 78 mmHg (11/27/23 8:12 PM) Extremity used to obtain blood pressure Right Arm (11/29/23 4:26 PM) Right Arm (11/29/23 12:09 PM) Left Arm (11/29/23 4:33 AM) Cuff Size. Medium (11/29/23 4:26 PM) Medium (11/29/23 12:09 PM) Medium (11/29/23 4:33 AM) Temperature Oral 36.6 DegC 1 (11/29/23 4:26 PM) Temperature Oral [35.8-37.3 DegC] 36.9 DegC (11/29/23 12:09 PM) 36.9 DegC (11/29/23 5:16 AM) 1Result Comment: Charted by SYSTEM secondary to charting of Temperature Oral F in [employer]. [id number] Rule: [email or web address]_[email or web address] Social History Social History Type Response Sex Male
--- OUTSIDE RECORDS SUMMARY | 2024-11-05 19:09 | XMS_ITS | Summary of Care ---
Author Organization [facility] Address [address] [place] [address]- Encounter 12/10/23 - 12/25/23 [facility] [id number] [place] [address]- Discharge Disposition: 02A Acute Care- Another Institution Attending Physician: Sakshi CARD, Joleen Admitting Physician: Rita Armenta MD Referring Physician: Jimenez Henao MD Allergies, Adverse Reactions, Alerts Substance Reaction Severity Status No Known Allergies Active Medications acetaminophen 500 mg oral tablet 1,000 mg = 2 tab, Oral, q6hr PRN, to specify reason for PRN use Start Date: 12/10/23 Status: Ordered acyclovir 400 mg oral tablet 400 mg = 1 tab, Oral, BID Start Date: 12/10/23 Status: Ordered bisacodyl 10 mg rectal suppository 10 mg = 1 supp, Supp, Per rectum, After dinner, 0 Refill(s) Start Date: 12/24/23 Status: Ordered cholecalciferol 125 mcg (5000 intl units) oral capsule 125 mcg = 1 cap, Cap, Oral, Daily, with food Start Date: 12/10/23 Status: Ordered cyclobenzaprine 5 mg oral tablet 5 mg = 1 tab, Tab, Oral, TID PRN, 0 Refill(s), Muscle spasms Start Date: 12/24/23 Status: Ordered docusate-senna 50 mg-8.6 mg oral tablet 1 tab, Tab, Oral, QHS, 0 Refill(s) Start Date: 12/24/23 Status: Ordered enoxaparin 80 mg/0.8 mL injectable solution 80 mg, = 0.8 mL, Soln-Inj, Subcutaneous, BID Start Date: 12/10/23 Status: Ordered furosemide 40 mg oral tablet 40 mg = 1 tab, Tab, Oral, BID, 0 Refill(s) Start Date: 12/24/23 Status: Ordered gabapentin 300 mg oral capsule 300 mg, = 1 cap, Indication: Neuropathic Pain - Spinal Cap, Oral, QHS, 0 Refill(s) Start Date: 12/24/23 Status: Ordered guaiFENesin 100 mg/5 mL oral liquid 200 mg = 10 mL, Liquid, Oral, QID PRN, 0 Refill(s), Cough Start Date: 12/24/23 Status: Ordered Keppra 500 mg oral tablet 500 mg = 1 tab, Tab, Oral, QHS, 0 Refill(s) Start Date: 12/24/23 Status: Ordered Keppra 500 mg oral tablet 500 mg = 1 tab, Tab, Oral, q48hr, 0 Refill(s) Start Date: 12/24/23 Status: Ordered levETIRAcetam 500 mg oral tablet 500 mg, 1 tab, Tab, Oral, BID, 0 Refill(s) Start Date: 12/24/23 Status: Ordered miconazole 2% topical powder 1 tasha, Powder, Topical BID, 0 Refill(s), Indication: Freetext; Enter in Order Comments Start Date: 12/24/23 Status: Ordered pantoprazole 40 mg oral delayed release tablet 40 mg = 1 tab, Tab-DR, Oral, Daily, 0 Refill(s) Start Date: 12/24/23 Status: Ordered potassium chloride 20 mEq oral tablet, extended release 40 mEq = 2 tab, Tab-ER, Oral, Daily, 0 Refill(s) Start Date: 12/24/23 Status: Ordered ramelteon 8 mg oral tablet 8 mg = 1 tab, Tab, Oral, QHS, 0 Refill(s) Start Date: 12/24/23 Status: Ordered tamsulosin 0.4 mg oral capsule 0.8 mg = 2 cap, Cap, Oral, QDINNER, 0 Refill(s) Start Date: 12/24/23 Status: Ordered Vitamin C 500 mg oral tablet 500 mg = 1 tab, Tab, Oral, BID, 0 Refill(s) Start Date: 12/24/23 Status: Ordered Problem List Condition Confirmation Course Effective Dates Status H ealth Status Informant ADL - activity of daily living Confirmed Active At risk of venous thromboembolus 1 Confirmed 12/11/23 Active Balance Confirmed Active basic ADL deficits Confirmed Active Cognitive impairment Confirmed < 12/19/23 Resolved impaired activity tolerance Confirmed Active impaired sitting balance Confirmed Active Weakness Confirmed Active 1Problem added by Discern Expert Rule: [id number]_3 Results Laboratory List Name Date Comp Metabolic Panel Pl - BJ 12/24/23 Complete Blood Count w/Diff - BJ 12/24/23 Glucose CS - BJ 12/24/23 Magnesium - BJ 12/24/23 Diff Auto - BJ/BSP (DiffAuto) 12/24/23 eGFR - BJ (eGFR) 12/24/23 Diff Auto - BJ/BSP (DiffAuto) 12/20/23 eGFR - BJ (eGFR) 12/20/[address] - BJ 12/20/23 Complete Blood Count w/Diff - BJ 12/20/23 Glucose CS - BJ 12/20/23 Magnesium - BJ 12/20/23 Diff Auto - BJ/BSP (DiffAuto) 12/17/23 Magnesium - BJ (Mg) 12/17/23 eGFR - BJ (eGFR) 12/17/[address] - BJ 12/17/23 Complete Blood Count w/Diff - BJ 12/17/23 Glucose CS - BJ 12/17/23 Glucose, POC 12/14/23 Vitamin D 25 Hydroxy - BJ 12/11/23 Most recent to oldest [Reference Range]: 1 2 3 Creatinine Level 0.82 mg/dL *NA* (12/24/23 6:00 AM) 0.82 mg/dL *NA* (12/20/23 6:05 AM) 0.74 mg/dL *LOW* (12/17/23 6:00 AM) eGFR - BJ [>=60 mL/min/1.73 m2] >90 mL/min/1.73 m2 1 *NA* (12/24/23 6:00 AM) >90 mL/min/1.73 m2 2 *NA* (12/20/23 6:05 AM) >90 mL/min/1.73 m2 3 *NA* (12/17/23 6:00 AM) Estimated Creatinine Clearance 62.27 mL/min 4 (12/24/23 6:00 AM) 62.27 mL/min 5 (12/20/23 6:05 AM) 62.27 mL/min 6 (12/17/23 6:31 AM) Glucose POC RALS [74-106 mg/dL] 118 mg/dL *HI* (12/14/23 8:59 PM) Blood Glucose Stick Site Finger, Left (12/14/23 9:45 PM) Neutrophils % Auto - BJ 51.3 % 7 *NA* (12/24/23 6:00 AM) 55.9 % 8 *NA* (12/20/23 6:05 AM) 61.4 % 9 *NA* (12/17/23 6:00 AM) Monocytes Abs Auto - BJ [0.2-0.8 thousand/mm3] 0.4 thousand/mm3 10 *NA* (12/24/23 6:00 AM) 0.5 thousand/mm3 11 *NA* (12/20/23 6:05 AM) 0.6 thousand/mm3 12 *NA* (12/17/23 6:00 AM) Anion Gap - BJ [2-15 mmol/L] 11 mmol/L 1 3 *NA* (12/24/23 6:00 AM) 10 mmol/L 14 *NA* (12/20/23 6:05 AM) 11 mmol/L 15 *NA* (12/17/23 6:00 AM) Vitamin D 25 Hydroxy - BJ [30-80 ng/mL] 50 ng/mL 16 *NA* (12/11/23 5:00 AM) Eosinophils % Auto - BJ 6.2 % 17 *NA* (12/24/23 6:00 AM) 4.7 % 18 *NA* (12/20/23 6:05 AM) 3.3 % 19 *NA* (12/17/23 6:00 AM) ALT - BJ [7-55 units/L] 25 units/L 20 *NA* (12/24/23 6:00 AM) 28 units/L 21 *NA* (12/20/23 6:05 AM) 33 units/L 22 *NA* (12/17/23 6:00 AM) Neutrophils Abs Auto - BJ [1.5-6.5 thousand/mm3] 2.3 thousand/mm3 23 *NA* (12/24/23 6:00 AM) 2.6 thousand/mm3 24 *NA* (12/20/23 6:05 AM) 3.2 thousand/mm3 25 *NA* (12/17/23 6:00 AM) Lymphocytes Abs Auto - BJ [0.8-3.3 thousand/mm3] 1.5 thousand/mm3 26 *NA* (12/24/23 6:00 AM) 1.3 thousand/mm3 27 *NA* (12/20/23 6:05 AM) 1.2 thousand/mm3 28 *NA* (12/17/23 6:00 AM) Hemoglobin - BJ [13.0-17.5 g/dL] 9.8 g/dL 29 *LOW* (12/24/23 6:00 AM) 9.3 g/dL 30 *LOW* (12/20/23:05 AM) 10.0 g/dL 31 *LOW* (12/17/23 6:00 AM) Basophils Abs Auto - BJ [0.0-0.1 thousand/mm3] 0.0 thousand/mm3 32 *NA* (12/24/23 6:00 AM) 0.0 thousand/mm3 33 *NA* (12/20/23 6:05 AM) 0.0 thousand/mm3 34 *NA* (12/17/23 6:00 AM) Chloride - BJ [97-110 mmol/L] 102 mmol/L 35 *NA* (12/24/23 6:00 AM) 101 mmol/L 36 *NA* (12/20/23 6:05 AM) 99 mmol/L 37 *NA* (12/17/23 6:00 AM) Calcium - BJ [8.5-10.3 mg/dL] 9.2 mg/dL 38 *NA* (12/24/23 6:00 AM) 8.9 mg/dL 39 *NA* (12/20/23 6:05 AM) 9.1 mg/dL 40 *NA* (12/17/23 6:00 AM) Platelets - BJ [150-400 thousand/mm3] 224 thousand/mm3 41 *NA* (12/24/23 6:00 AM) 253 thousand/mm3 42 *NA* (12/20/23 6:05 AM) 317 thousand/mm3 43 *NA* (12/17/23 6:00 AM) Sodium - BJ [135-145 mmol/L] 141 mmol/L 44 *NA* (12/24/23 6:00 AM) 141 mmol/L 45 *NA* (12/20/23 6:05 AM) 141 mmol/L 46 *NA* (12/17/23 6:00 AM) Monocytes % Auto - BJ 9.0 % 47 *NA* (12/24/23 6:00 AM) 10.2 % 48 *NA* (12/20/23 6:05 AM) 11.2 % 49 *NA* (12/17/23 6:00 AM) Eosinophils Abs Auto - BJ [0.0-0.5 thousand/mm3] 0.3 thousand/mm3 50 *NA* (12/24/23 6:00 AM) 0.2 thousand/mm3 51 *NA* (12/20/23 6:05 AM) 0.2 thousand/mm3 52 *NA* (12/17/23 6:00 AM) MCHC - BJ [32.3-35.7 g/dL] 32.3 g/dL 53 *NA* (12/24/23 6:00 AM) 31.4 g/dL 54 *LOW* (12/20/23 6:05 AM) 32.5 g/dL 55 *NA* (12/17/23 6:00 AM) MPV - BJ [9.1-12.3 fL] 11.4 fL 56 *NA* (12/24/23 6:00 AM) 11.2 fL 57 *NA* (12/20/23 6:05 AM) 11.0 fL 58 *NA* (12/17/23 6:00 AM) MCV - BJ [81.3-96.4 fL] 94.1 fL 59 *NA* (12/24/23 6:00 AM) 95.5 fL 60 *NA* (12/20/23 6:05 AM) 94.8 fL 61 *NA* (12/17/23 6:00 AM) MCH - BJ [27.1-33.3 pg] 30.4 pg 62 *NA* (12/24/23 6:00 AM) 30.0 pg 63 *NA* (12/20/23 6:05 AM) 30.8 pg 64 *NA* (12/17/23 6:00 AM) Magnesium - BJ [1.4-2.5 mg/dL] 2.2 mg/dL 65 *NA* (12/24/23 6:00 AM) 2.0 mg/dL 66 *NA* (12/20/23 6:05 AM) 2.0 mg/dL 67 *NA* (12/17/23 6:00 AM) Potassium, Plasma - BJ [3.3-4.9 mmol/L] 3.6 mmol/L 68 *NA* (12/24/23 6:00 AM) 3.4 mmol/L 69 *NA* (12/20/23 6:05 AM) 2.7 mmol/L 70 *LOW* (12/17/23 6:00 AM) Creatinine - BJ [0.80-1.30 mg/dL] 0.82 mg/dL 71 *NA* (12/24/23 6:00 AM) 0.82 mg/dL 72 *NA* (12/20/23 6:05 AM) 0.74 mg/dL 73 *LOW* (12/17/23 6:00 AM) RBC - BJ [4.30-5.80 m/mm3] 3.22 m/mm3 74 *LOW* (12/24/23 6:00 AM) 3.10 m/mm3 75 *LOW* (12/20/23 6:05 AM) 3.25 m/mm3 76 *LOW* (12/17/23 6:00 AM) BUN - BJ [6-25 mg/dL] 13 mg/dL 77 *NA* (12/24/23 6:00 AM) 15 mg/dL 78 *NA* (12/20/23 6:05 AM) 19 mg/dL 79 *NA* (12/17/23 6:00 AM) Lymphocytes % Auto - BJ 32.4 % 80 *NA* (12/24/23 6:00 AM) 27.9 % 81 *NA* (12/20/23 6:05 AM) 22.9 % 82 *NA* (12/17/23 6:00 AM) Albumin - BJ [3.5-5.0 g/dL] 3.2 g/dL 83 *LOW* (12/24/23 6:00 AM) 3.0 g/dL 84 *LOW* (12/20/23 6:05 AM) 3.2 g/dL 85 *LOW* (12/17/23 6:00 AM) Carbon Dioxide - BJ [22-32 mmol/L] 28 mmol/L 86 *NA* (12/24/23 6:00 AM) 30 mmol/L 87 *NA* (12/20/23 6:05 AM) 31 mmol/L 88 *NA* (12/17/23 6:00 AM) Hematocrit - BJ [38.9-50.3 %] 30.3 % 89 *LOW* (12/24/23 6:00 AM) 29.6 % 90 *LOW* (12/20/23 6:05 AM) 30.8 % 91 *LOW* (12/17/23 6:00 AM) Basophils % Auto - BJ 0.7 % 92 *NA* (12/24/23 6:00 AM) 0.4 % 93 *NA* (12/20/23 6:05 AM) 0.4 % 94 *NA* (12/17/23 6:00 AM) Protein, Plasma - BJ [6.5-8.5 g/dL] 6.3 g/dL 95 *LOW* (12/24/23 6:00 AM) 6.2 g/dL 96 *LOW* (12/20/23 6:05 AM) 6.5 g/dL 97 *NA* (12/17/23 6:00 AM) WBC - BJ [3.8-9.9 thousand/mm3] 4.5 thousand/mm3 98 *NA* (12/24/23 6:00 AM) 4.7 thousand/mm3 99 *NA* (12/20/23 6:05 AM) 5.2 thousand/mm3 100 *NA* (12/17/23 6:00 AM) AST - BJ [10-50 units/L] 21 units/L 101 *NA* (12/24/23 6:00 AM) 23 units/L 102 *NA* (12/20/23 6:05 AM) 25 units/L 103 *NA* (12/17/23 6:00 AM) Bilirubin, Total - BJ [0.1-1.2 mg/dL] 0.3 mg/dL 104 *NA* (12/24/23 6:00 AM) 0.3 mg/dL 105 *NA* (12/20/23 6:05 AM) 0.3 mg/dL 106 *NA* (12/17/23 6:00 AM) Glucose - BJ [70-199 mg/dL] 91 mg/dL 107 *NA* (12/24/23 6:00 AM) 95 mg/dL 108 *NA* (12/20/23 6:05 AM) 100 mg/dL 109 *NA* (12/17/23 6:00 AM) Alkaline Phosphatase - BJ [40-130 units/L] 84 units/L 110 *NA* (12/24/23 6:00 AM) 86 units/L 111 *NA* (12/20/23 6:05 AM) 95 units/L 112 *NA* (12/17/23 6:00 AM) Blood Glucose, Capillary [74-106 mg/dL] 118 mg/dL *HI* (12/14/23 9:45 PM) RDW CV - BJ [11.1-14.9 %] 14.5 % 113 *NA* (12/24/23 6:00 AM) 14.7 % 114 *NA* (12/20/23 6:05 AM) 15.2 % 115 *HI* (12/17/23 6:00 AM) RDW SD - BJ [35.7-48.1 fL] 50.5 fL 116 *HI* (12/24/23 6:00 AM) 51.8 fL 117 *HI* (12/20/23 6:05 AM) 53.0 fL 118 *HI* (12/17/23 6:00 AM) N RBC Abs Auto - BJ [0.00-0.01 thousand/mm3] 0.00 thousand/mm3 119 *NA* (12/24/23 6:00 AM) 0.00 thousand/mm3 120 *NA* (12/20/23 6:05 AM) 0.00 thousand/mm3 121 *NA* (12/17/23 6:00 AM) Imm Gran Abs Auto - BJ [0.0-0.1 thousand/mm3] 0.0 thousand/mm3 122 *NA* (12/24/23 6:00 AM) 0.0 thousand/mm3 123 *NA* (12/20/23 6:05 AM) 0.0 thousand/mm3 124 *NA* (12/17/23 6:00 AM) Imm Gran % Auto - BJ 0.4 % 125 *NA* (12/24/23 6:00 AM) 0.9 % 126 *NA* (12/20/23 6:05 AM) 0.8 % 127 *NA* (12/17/23 6:00 AM) 1Result Comment: Interpretive Data Reference Interval Normal >/= [...] of Race in Diagnosing Kidney Disease, JASN 202). The CKD-EPI equation should not be used for patients with unstable renal function and has not been validated in children and those over 70. Current interpretive data was last reviewed 2021. Testing performed by: [facility], [address] [place] [address]., [address] Testing [place] [address] (CLIA ID: [id number]) Lab New Product Trainer: Andi Duvall M.D. 2Result Comment: Interpretive Data Reference Interval Normal [...] was last reviewed 2021. Testing performed by: [facility], [address] [place]., [address] [place] [address] (CLIA ID: [id number]) Lab New Product Trainer: Andi Duvall M.D. 3Result Comment: Interpretive Data [...] was last reviewed 2021. Testing performed by: [facility], [address] [place]., [address] [place] [address] (CLIA ID: [id number]) Lab New Product Trainer: Andi Duvall M.D. 4Result Comment: Calculated using method: Cockcroft-Gault (default) Calculated using Formula : (140-ageInYears)*IBW/(72) Age: 73 (62937310175.0) Serum Creatinine: 0.82 mg/dL (55438955164.0) Height: 170 cm (50058076768.0) Weight: 98.8 kg (IBW = 65.937 kg) 5Result Comment: Calculated using method: Cockcroft-Gault (default) Calculated using Formula : (140-ageInYears)*IBW/(72) Age: 73 (02487539723.0) Serum Creatinine: 0.82 mg/dL (71250555670.0) Height: 170 cm (86012031755.0) Weight: 98.8 kg (IBW = 65.937 kg) 6Result Comment: Calculated using method: Cockcroft-Gault (default) Calculated using Formula : (140-ageInYears)*IBW/(72) Age: 73 (61532375370.0) Serum Creatinine: 0.82 mg/dL (71194880731.0) Height: 170 cm (20059459860.0) Weight: 98.8 kg (IBW = 65.937 kg) 7Result Comment: Interpretive Data Percent cell count reference ranges are not reported, since discordance with absolute values may lead to misinterpretation of CBC data. Current Interpretive Data was last revised on 2018. Testing performed by: [facility], [address] [place] [address], [id number] 8Result Comment: Interpretive Data Percent cell count reference ranges are not reported, since discordance with absolute values may lead to misinterpretation of CBC data. Current Interpretive Data was last revised on 2018. Testing performed by: [facility], [address] [place] [address], [id number] 9Result Comment: Interpretive Data Percent cell count reference ranges are not reported, since discordance with absolute values may lead to misinterpretation of CBC data. Current Interpretive Data was last revised on 2018. Testing performed by: [facility], [address] [place] [address]., [address] 10Result Comment: Testing performed by: [facility], [address] [place] [address]., [address] 11Result Comment: Testing performed by: [facility], [address] [place] [address]., [address] 12Result Comment: Testing performed by: [facility], [address] [place] [address]., [address] 13Result Comment: Testing performed by: [facility], [address] [place]., [address] 14Result Comment: Testing performed by: [facility], [address] [place]., [address] 15Result Comment: Testing performed by: [facility], [address] [facility], [address] 16Result Comment: Testing performed by: [facility], [address] [facility], [address] 17Result Comment: Interpretive Data Percent cell count reference ranges are not reported, since discordance with absolute values may lead to misinterpretation of CBC data. Current Interpretive Data was last revised on 2018. Testing performed by: [facility], [address] [place] [address], [id number] 18Result Comment: Interpretive Data Percent cell count reference ranges are not reported, since discordance with absolute values may lead to misinterpretation of CBC data. Current Interpretive Data was last revised on 2018. Testing performed by: [facility], [address] [place] [address], [address] 19Result Comment: Interpretive Data Percent cell count reference ranges are not reported, since discordance with absolute values may lead to misinterpretation of CBC data. Current Interpretive Data was last revised on 2018. Testing performed by: [facility], [address] [place]., [address] 20Result Comment: Testing performed by: [facility], [address] [place]., [address] 21Result Comment: Testing performed by: [facility], [address] [place] [address], [address] 22Result Comment: Testing performed by: [facility], [address] [facility], [address] 23Result Comment: Testing performed by: [facility], [address] [facility], [place]., [address] 24Result Comment: Testing performed by: [facility], [address] [facility], [place]., [address] 25Result Comment: Testing performed by: [facility], [address] [facility], [facility], [address] 26Result Comment: Testing performed by: [facility], [address] [facility], [facility], [address] 27Result Comment: Testing performed by: [facility], [address] [facility], [facility], [address] 28Result Comment: Testing performed by: [facility], [address] [facility], [facility], [address] 29Result Comment: Testing performed by: [facility], [address] [facility], [facility], [address] 30Result Comment: Testing performed by: [facility], [address] [facility], [facility], [address] 31Result Comment: Testing performed by: [facility], [address] [facility], [place]., [address] 32Result Comment: Testing performed by: [facility], [address] [facility], [place]., [address] 33Result Comment: Testing performed by: [facility], [address] [place] [address], [place]., [address] 34Result Comment: Testing performed by: [facility], [address] [facility], [facility], [address] 35Result Comment: Testing performed by: [facility], [address] [place] [address], [place]., [address] 36Result Comment: Testing performed by: [facility], [address] [facility], [facility], [address] 37Result Comment: Testing performed by: [facility], [address] [facility], [facility], [address] 38Result Comment: Testing performed by: [facility], [address] [facility], [facility], [address] 39Result Comment: Testing performed by: [facility], 1 [facility], [address] 40Result Comment: Testing performed by: [facility], 1 [facility], [address] 41Result Comment: Testing performed by: [facility], [address] [facility], [address] 42Result Comment: Testing performed by: [facility], [address] [place] [address], [address] 43Result Comment: Testing performed by: [facility], 1 [facility], [address] 44Result Comment: Testing performed by: [facility], [address] [place] [address], [address] 45Result Comment: Testing performed by: [facility], [address] [place] [address], [address] 46Result Comment: Testing performed by: [facility], 1 [facility], [address] 47Result Comment: Interpretive Data Percent cell count reference ranges are not reported, since discordance with absolute values may lead to misinterpretation of CBC data. Current Interpretive Data was last revised on 2018. Testing performed by: [facility], [address] [place] [address], [address] 48Result Comment: Interpretive Data Percent cell count reference ranges are not reported, since discordance with absolute values may lead to misinterpretation of CBC data. Current Interpretive Data was last revised on 2018. Testing performed by: [facility], [address] [place] [address], [address] 49Result Comment: Interpretive Data Percent cell count reference ranges are not reported, since discordance with absolute values may lead to misinterpretation of CBC data. Current Interpretive Data was last revised on 2018. Testing performed by: [facility], [address] [facility], [facility], [address] 50Result Comment: Testing performed by: [facility], [address] [facility], [facility], [address] 51Result Comment: Testing performed by: [facility], [address] [facility], [facility], [address] 52Result Comment: Testing performed by: [facility], [address] [facility], [facility], [address] 53Result Comment: Testing performed by: [facility], 1 [facility], [address] 54Result Comment: Testing performed by: [facility], 1 [facility], [address] 55Result Comment: Testing performed by: [facility], [address] [facility], [facility], [address] 56Result Comment: Testing performed by: [facility], [address] [facility], [facility], [address] 57Result Comment: Testing performed by: [facility], [address] [facility], [facility], [address] 58Result Comment: Testing performed by: [facility], [address] [place] [address], [facility], [address] 59Result Comment: Testing performed by: [facility], [address] [place] [address], [facility], [address] 60Result Comment: Testing performed by: [facility], [address] [place] [address], [facility], [address] 61Result Comment: Testing performed by: [facility], 1 [facility], [facility], [address] 62Result Comment: Testing performed by: [facility], [address] [facility], [facility], [address] 63Result Comment: Testing performed by: [facility], [address] [facility], [place]., [address] 64Result Comment: Testing performed by: [facility], [address] [facility], [place]., [address] 65Result Comment: Testing performed by: [facility], [address] [facility], [place]., [address] 66Result Comment: Testing performed by: [facility], [address] [facility], [facility], [address] 67Result Comment: Testing performed by: [facility], [address] [facility], [facility], [address] 68Result Comment: Testing performed by: [facility], [address] [facility], [facility], [address] 69Result Comment: Testing performed by: [facility], [address] [place] [address], [place]., [address] 70Result Comment: Testing performed by: [facility], [address] [facility], [place]., [address] 71Result Comment: Testing performed by: [facility], [address] [facility], [place]., [address] 72Result Comment: Testing performed by: [facility], [address] [place] [address], [place]., [address] 73Result Comment: Testing performed by: [facility], [address] [facility], [place]., [address] 74Result Comment: Testing performed by: [facility], [address] [place] [address], [place]., [address] 75Result Comment: Testing performed by: [facility], [address] [facility], [place]., [address] 76Result Comment: Testing performed by: [facility], [address] [place] [address], [place]., [address] 77Result Comment: Testing performed by: [facility], [address] [place] [address] 78Result Comment: Testing performed by: [facility], [address] [place] [address]., [address] 79Result Comment: Testing performed by: [facility], [address] [place] [address], [address] 80Result Comment: Interpretive Data Percent cell count reference ranges are not reported, since discordance with absolute values may lead to misinterpretation of CBC data. Current Interpretive Data was last revised on 2018. Testing performed by: [facility], [address] [place] [address], [address] 81Result Comment: Interpretive Data Percent cell count reference ranges are not reported, since discordance with absolute values may lead to misinterpretation of CBC data. Current Interpretive Data was last revised on 2018. Testing performed by: [facility], [address] [place] [address], [address] 82Result Comment: Interpretive Data Percent cell count reference ranges are not reported, since discordance with absolute values may lead to misinterpretation of CBC data. Current Interpretive Data was last revised on 2018. Testing performed by: [facility], [address] [place] [address]., [id number] 83Result Comment: Testing performed by: [facility], [address] [place] [address]., [id number] 84Result Comment: Testing performed by: [facility], [address] [place] [address], [id number] 85Result Comment: Testing performed by: [facility], [address] [place] [address]., [id number] 86Result Comment: Testing performed by: [facility], [address] [place] [address]., [id number] 87Result Comment: Testing performed by: [facility], [address] [place] [address], [id number] 88Result Comment: Testing performed by: [facility], [address] [place]., [address] 89Result Comment: Testing performed by: [facility], [address] [place]., [address] 90Result Comment: Testing performed by: [facility], [address] [facility], [id number] 91Result Comment: Testing performed by: [facility], [address] [place] [address], [id number] 92Result Comment: Interpretive Data Percent cell count reference ranges are not reported, since discordance with absolute values may lead to misinterpretation of CBC data. Current Interpretive Data was last revised on 2018. Testing performed by: [facility], [address] [place] [address], [id number] 93Result Comment: Interpretive Data Percent cell count reference ranges are not reported, since discordance with absolute values may lead to misinterpretation of CBC data. Current Interpretive Data was last revised on 2018. Testing performed by: [facility], [address] [place] [address], [id number] 94Result Comment: Interpretive Data Percent cell count reference ranges are not reported, since discordance with absolute values may lead to misinterpretation of CBC data. Current Interpretive Data was last revised on 2018. Testing performed by: [facility], [address] [place] [address]., 118[address] 95Result Comment: Testing performed by: [facility], [address] [place] [address]., [id number] 96Result Comment: Testing performed by: [facility], [address] [place] [address]., [id number] 97Result Comment: Testing performed by: [facility], [address] [place] [address]., [id number] 98Result Comment: Testing performed by: [facility], [address] [place] [address], [id number] 99Result Comment: Testing performed by: [facility], [address] [place]., [address] 100Result Comment: Testing performed by: [facility], [address] [facility], [address] 101Result Comment: Testing performed by: [facility], [address] [place] [address], [id number] 102Result Comment: Testing performed by: [facility], [address] [facility], [address] 103Result Comment: Testing performed by: [facility], [address] [place] [address], [id number] 104Result Comment: Testing performed by: [facility], [address] [facility], [id number] 105Result Comment: Testing performed by: [facility], [address] [place] [address], [id number] 106Result Comment: Testing performed by: [facility], [address] [place] [address], [id number] 107Result Comment: Interpretive Data Fasting glucose >/= 126 [...] was last revised 2022. Testing performed by: [facility], [address] [place]., [address] [place] [address] (CLIA ID: [id number]) Lab New Product Trainer: Andi Duvall M.D. 108Result Comment: Interpretive Data Fasting glucose >/= 126 [...] was last revised 2022. Testing performed by: [facility], [address] [place] [address]., [id number] [place] [address] (CLIA ID: [id number]) Lab New Product Trainer: Andi Duvall M.D. 109Result Comment: Interpretive Data Fasting glucose >/= 126 [...] was last revised 2022. Testing performed by: [facility], [address] [place] [address]., [id number] [place] [address] (CLIA ID: [id number]) Lab New Product Trainer: Andi Duvall M.D. 110Result Comment: Testing performed by: [facility], [address] [place] [address]., [id number] 111Result Comment: Testing performed by: [facility], [address] [place] [address]., 029[address] 112Result Comment: Testing performed by: [facility], [address] [place] [address]., [id number] 113Result Comment: Testing performed by: [facility] [address] [facility], [id number] 114Result Comment: Testing performed by: [facility], [address] [facility], [address] 115Result Comment: Testing performed by: [facility], [address] [facility], 6[address] 116Result Comment: Testing performed by: [facility], [address] [facility], 84[address] 117Result Comment: Testing performed by: [facility], [address] [facility], 77[address] 118Result Comment: Testing performed by: [facility], [address] [facility], 7[address] 119Result Comment: Testing performed by: [facility], [address] [place] [address], [id number] 120Result Comment: Testing performed by: [facility], [address] [facility], 318[address] 121Result Comment: Testing performed by: [facility], [address] [place] [address], 337[address] 122Result Comment: Testing performed by: [facility], [address] [place] [address], 74[address] 123Result Comment: Testing performed by: [facility], [address] [place] [address], [id number] 124Result Comment: Testing performed by: [facility], [address] [place] [address], [id number] 125Result Comment: Interpretive Data Percent cell count reference ranges are not reported, since discordance with absolute values may lead to misinterpretation of CBC data. Current Interpretive Data was last revised on 2018. Testing performed by: [facility], [address] [facility], [address] 126Result Comment: Interpretive Data Percent cell count reference ranges are not reported, since discordance with absolute values may lead to misinterpretation of CBC data. Current Interpretive Data was last revised on 2018. Testing performed by: [facility], [address] [place]., [address] 127Result Comment: Interpretive Data Percent cell count reference ranges are not reported, since discordance with absolute values may lead to misinterpretation of CBC data. Current Interpretive Data was last revised on 2018. Testing performed by: [facility], [address] [place]., [address] Vital Signs Most recent to oldest [Reference Range]: 1 2 3 Temperature Oral F [96.4-99.1 DegF] 98.5 DegF (12/25/23 3:53 AM) 98.9 DegF (12/24/23 7:23 PM) 97.8 DegF (12/24/23 4:07 PM) Peripheral Pulse Rate [60-100 bpm] 68 bpm (12/25/23 3:53 AM) 72 bpm (12/24/23 7:23 PM) 70 bpm (12/24/23 4:07 PM) Respiratory Rate [14-20 br/min] 17 br/min (12/24/23 4:07 PM) 18 br/min (12/24/23 8:49 AM) 17 br/min (12/24/23 5:54 AM) Blood Pressure [90-140/60-90 mmHg] 115/62mmHg (12/25/23 3:53 AM) 109/66mmHg (12/24/23 7:23 PM) 131/75mmHg (12/24/23 4:07 PM) Mean Arterial Pressure, Cuff 80 mmHg (12/25/23 3:53 AM) 80 mmHg (12/24/23 7:23 PM) 94 mmHg (12/24/23 4:07 PM) Extremity used to obtain blood pressure Right Arm (12/18/23 4:00 AM) Right Arm (12/17/23 8:13 PM) Left Arm (12/16/23 5:51 PM) Cuff Size. Medium (12/18/23 4:00 AM) Medium (12/17/23 8:13 PM) Small (12/16/23 5:51 PM) Diastolic Blood Pressure with Activity [60-90 mmHg] 68 mmHg (12/13/23 2:00 PM) 68 mmHg (12/11/23 10:33 AM) Peripheral Pulse Rate with Activity [60-100 bpm] 71 bpm (12/13/23 2:00 PM) 63 bpm (12/11/23 10:33 AM) Systolic Blood Pressure with Activity [90-140 mmHg] 106 mmHg (12/13/23 2:00 PM) 107 mmHg (12/11/23 10:33 AM) SpO2 with Activity [94-100 %] 97 % (12/11/23 10:33 AM) Temperature Oral 36.9 DegC 1 (12/25/23 3:53 AM) 37.2 DegC 2 (12/24/23 7:23 PM) 36.6 DegC 3 (12/24/23 4:07 PM) 1Result Comment: Charted by SYSTEM secondary to charting of Temperature Oral F on a Vitals Monitor. Rule: VITALSLINK_CALCULATIONS_2 2Result Comment: Charted by SYSTEM secondary to charting of Temperature Oral F on a Vitals Monitor. Rule: VITALSLINK_CALCULATIONS_2 3Result Comment: Charted by SYSTEM secondary to charting of Temperature Oral F on a Vitals Monitor. Rule: VITALSLINK_CALCULATIONS_2 Social History Social History Type Response Sex Male
--- OUTSIDE RECORDS SUMMARY | 2024-11-05 19:10 | XMS_ITS ---
Author Organization Unknown Address [id number] [place] [phone] Phone Care Team Providers Care Elevator Constructor Supervisor Name Role Phone HEAVEN MOJICA Attending Unavailable ANGELY MOJICA Primary Unavailable Immunization Immunization Date Status Additional Notes Code Code System MMR 11/13/2011 Completed 03 CVX pneumococcal polysaccharide PPV23 07/26/2017 Completed 33 CVX Tdap 02/09/2021 Completed 115 CVX Pneumococcal conjugate PCV 13 06/23/2016 Completed 133 CVX Pneumococcal conjugate PCV 13 09/20/2018 Completed 133 CVX Influenza, high-dose, trivalent, PF 07/26/2017 Completed 135 CVX Influenza, high-dose, trivalent, PF 09/20/2018 Completed 135 CVX Influenza, split virus, trivalent, PF 08/04/2015 Completed 140 CVX Influenza, split virus, trivalent, preservative 09/03/2013 Completed 141 CVX Influenza, split virus, trivalent, preservative 07/27/2014 Completed 141 CVX zoster recombinant 02/18/2021 Completed 187 CVX zoster recombinant 05/16/2021 Completed 187 CVX Influenza, high-dose, quadrivalent, PF 08/20/2021 Completed 197 CVX Influenza, high-dose, quadrivalent, PF 07/15/2022 Completed 197 CVX Influenza, high-dose, quadrivalent, PF 08/04/2023 Completed 197 CVX Influenza, adjuvanted, quadrivalent, PF 07/27/2020 Completed 205 CVX COVID-19, mRNA, LNP-S, PF, 1 00 mcg/0.5mL dose or 50 mcg/0.25mL dose 10/14/2021 Completed 207 CVX COVID-19, mRNA, LNP-S, PF, 3 0 mcg/0.3 mL dose 12/10/2020 Completed 208 CVX COVID-19, mRNA, LNP-S, PF, 3 0 mcg/0.3 mL dose 12/31/2020 Completed 208 CVX COVID-19, mRNA, LNP-S, PF, 3 0 mcg/0.3 mL dose 01/07/2021 Completed 208 CVX COVID-19, mRNA, LNP-S, PF, 3 0 mcg/0.3 mL dose 06/20/2021 Completed 208 CVX COVID-19, mRNA, LNP-S, PF, 3 0 mcg/0.3 mL dose 06/24/2021 Completed 208 CVX COVID-19, mRNA, LNP-S, bivalent, PF, 30 mcg/0.3 mL dose 07/15/2022 Completed 300 CVX COVID-19, mRNA, LNP-S, bivalent, PF, 30 mcg/0.3 mL dose 03/03/2023 Completed 300 CVX COVID-19, mRNA, LNP-S, PF, hcristiano-sucrose, 30 mcg/0.3 mL 07/22/2023 Completed 309 CVX Results MRI LUMBAR WO CONTRAST - Com pleted: 08/30/2023 11:36 LOINC: EXAM DESCRIPTION: MRI LUMBAR WO CONTRAST REASON FOR STUDY: Low back pain left leg pain radiating to the knee for 2 weeks prior to left leg ?? g oing out? 4 days ago. No known injury, though ? considerable amount of walking before sitting for a prolonged period, after which, he couldn't walk; for 2 days after? 2 weeks ago. History of prostate cancer status post prostatectomy 12 years ago. History of melanoma of left flank excised 14 years ago. No provided history of lumbar spine surgery. TECHNIQUE: Sagittal and axial imaging of the lumbar spine includes T1, T2, STIR, and PD sequences. Images saved to PACS. COMPARISON: Renal ultrasound 06/28/2021; relevant portions of CT abdomen pelvis with contrast 07/23/2015. FINDINGS: SEGMENTATION: No lumbosacral transitional anatomy. The lowest fully formed intervertebral disc level is labeled L5-S1. ALIGNMENT: Redemonstration of minimal retrolisthesis L5 on S1. VERTEBRAE: No MR evidence of acute-subacute fracture. Vertebral body heights unchanged. Spondylosis. Scattered hemangiomas and patchy fatty marrow replacement about the osseous architecture. DISC HEIGHT: Multilevel variable intervertebral disc desiccation and loss of intervertebral disc height of the lower thoracic through lumbar spine. HARDWARE: None in the lumbar spine. CORD/CAUDA: Normal in size and signal intensity with conus medullaris termination at L1. LOWER THORACIC: Incompletely imaged. No stenosis demonstrated. INDIVIDUAL DISC LEVELS: L1-2: No diffuse disc bulge or focal herniation. Mild bilateral facet arthropathy. No spinal canal stenosis. Neural foraminal stenosis. L2-3: Minimal annular disc bulge. Mild bilateral hypertrophic facet arthropathy. No spinal canal stenosis. No neural foraminal stenosis, noting tiny right perineural sleeve cyst. L3-4: Minimal annular disc bulge. Mild bilateral hypertrophic facet arthropathy. No spinal canal stenosis. No neural foraminal stenosis. L4-5: Annular disc bulge with left eccentric central-left foraminal disc protrusion with a 1.0 x 0.7 x 0.8 cm (CC by AP by TV) oblong focus superiorly positioned from the left subarticular component of the disc protrusion extending to the level of the midportion of the L4 vertebral body favors disc sequestration on unenhanced MR imaging sequences, though, in the absence of prior imaging evaluation of this finding, multiplanar T1 postcontrast sequences, to include T1 postcontrast fat-saturated sequences, recommended for further evaluation. Moderate bilateral hypertrophic facet arthropathy. Ligamentum flavum thickening eccentric to the left. Marked compromise of the left and compromise of the right lateral recesses, noting amalgamation of findings results in impingement upon the descending left L4 as well as L5 and disc and arthropathic facet contact with descending right L5 nerve roots. Severe left eccentric spinal canal stenosis. Severe left and mild inferior right neural foraminal stenosis, noting combination of inferior pedicular surface, posterior cortical margin/disc, and arthropathic facet contact with exiting left and disc contact with exiting right L4 nerve roots. L5-S1: Posterior maximal annular disc bulge. Moderate bilateral hypertrophic facet arthropathy. No significant spinal canal stenosis, noting epidural lipomatosis narrows the residual thecal sac at this level. Severe right and moderate left neural foraminal stenosis, noting combination of inferior pedicular surface, posterior cortical margin/disc, and arthropathic facet variable contact with exiting bilateral L5 nerve roots. SACRUM: Visualized upper sacrum intact. VISUALIZED UPPER ABDOMEN: Tiny right renal cortical cyst. OTHER: Sarcopenia manifested as variably robust fatty atrophy of the visualized musculature. IMPRESSION: 1. Constellation of spondylolisthesis, spondylosis, and degenerative disc disease of the lumbar spine as detailed level by level above, maximal at L4-5. 2. L4-5 annular disc bulge with left eccentric central-left foraminal disc protrusion with 1 cm oblong focus superiorly positioned from the left subarticular component of the disc protrusion favors disc sequestration on unenhanced MR imaging sequences, though, in the absence of prior imaging evaluation of this finding, multiplanar T1 postcontrast sequences, to include T1 postcontrast fat-saturated sequences, recommended for further evaluation. 3. These findings in association with associated L4-5 facet arthropathy and ligamentum flavum thickening produces marked compromise of the left and compromise of the right lateral recesses, noting amalgamation of findings results in impingement upon the descending left L4 as well as L5 and disc and arthropathic facet contact with the descending right L5 nerve roots, severe left eccentric spinal canal stenosis, and severe left and mild inferior right neural foraminal stenosis, noting combination of inferior pedicular surface, posterior cortical margin/disc, and arthropathic facet contact with exiting left and disc contact with the exiting right L4 nerve roots. THIS IS AN ELECTRONICALLY VERIFIED FINAL REPORT 08/30/2023 1:07 PM - Electronically signed by Temo Shanks M.D. WILY: WILY Report ID: [id number] Reading Location: [place] [address] Social History Type Status Start Date End Date Code Code Syst em Smoking History Former smoker [id number] SNOMED CT Sex Male Hospital Discharge Instructions Should you have any questions prior to discharge, please contact a member of your healthcare team. If you have left the hospital and have any questions, please contact your primary care physician. Reason For Referral No Data Found Allergies and Adverse Reactions Allergy Substance Reaction Severity Start Date Concern Status Co de Code System No Known Allergies Moderate Active 714723044 SN OMED-CT Plan of Treatment US Kidney & Bladder (12200) 06/28/2021 MRI Lumbar WO Contrast (62260) 08/30/20 23 Encounters Encounter Diagnosis Start Date Code Code Sys tem Spondylolisthesis, lumbar region 08/30/2023 SNOMED-CT Personal Care Team Section Performer Name Performer Role Active Date Inactive Da YUNIOR Gaspar PCP - Primary care physician 2 6
--- OUTSIDE RECORDS SUMMARY | 2024-11-05 19:10 | XMS_ITS ---
Author Organization Unknown Address [address] [place] [phone] Phone Care Team Providers Care Digital Strategist Senior Manager Name Role Phone EDILMA SAMUEL Attending Unavailable HEAVEN MOJICA Primary Unavailable Immunization Immunization Date Status [...] Completed 300 CVX COVID-19, mRNA, LNP-S, PF, christiano-sucrose, 30 mcg/0.3 mL 07/22/2023 Completed 309 CVX Social History Type Status Start Date End Date Code Code Syst em Smoking History Former smoker [id number] SNOMED CT Sex Male Hospital Discharge Instructions [...] Code System No Known Allergies Moderate Active [id number] SN OMED-CT Plan of Treatment US Kidney & Bladder (32749) 06/28/2021 MRI Lumbar WO Contrast (08130) 08/30/20 23 Encounters Encounter Diagnosis Start Date Code Code Sys tem Lumbar radiculopathy 09/06/[address] [id number] SNOMED- CT Personal Care Team Section Performer Name Performer Role Active Date Inactive YUNIOR Cuellar PCP - Primary care physician 2023-08-2 6
--- OUTSIDE RECORDS SUMMARY | 2024-11-05 19:10 | XMS_ITS | Patient Health Record ---
Author Organization [facility] Address [address] [place] [id number] Care Team Providers Care Optics Technical Officer Name Role Phone PCP, Does not have a Primary Care Provider Unava ilable Allergies No Known Allergies Reason For Referral No Information Medications Medication SIG (Take, Route, Frequency, Duration) Notes Start Date End Date Status Acyclovir Active Dilt-XR Active HYDROcodone-Acetaminophen 5-325 MG 1 tablet as needed Orally every 6 hrs for 4 days 08/14/2023 Active Meloxicam 15 MG 1 tablet Orally Once a day for 14 days 08/14/2023 Active Irbesartan Active Social History Tobacco Use: Social History Observation Description Date Details (start date - stop date) Former Smoker NA - NA Tobacco Use/Smoking Question Answer Notes You are a former smoker Plan Of Treatment No Information Insurance Providers Payer Name Payer Address Payer Phone Subscriber Number Group Number Insured Name Patient Relationship to Insured Coverage Start Date Coverage End Date [employer] [address] [address] [place] [address] [id number] JOSE SHANKAR Self - patient is the insured Medications Administered Medication Instructions Date of Administration Dosage Notes Ketorolac 30mg/mL (Inj) 08/14/2023 30 mg Medical (General) History Medical History History ICD Code Hypertension Knee Replacement Surgery Prostate Cancer 12 years ago
--- OUTSIDE RECORDS SUMMARY | 2024-11-05 19:10 | XMS_ITS ---
Author Organization [facility] Address [facility] [place] [address] Care Team Providers Care Manager Clinical Pharmacy Name Role Phone PCP, Does not have a Primary Care Provider Unava enedina Marcial Jacobo Unavailable [phone] Allergies No Known Allergies Results Component Value Reference Range Notes X ray : Hip, left 2 view Reviewed date:08/17/2023 05:02:34 PM Interpretation:Normal Performing Lab: Notes/Report: Exam: X-RAYS OF THE LEFT HIP Clinical Indication: Left hip pain for 3 weeks. Now pain in left lower back as well. Technique: Two views of the left hip. Prior studies: No prior studies are submitted. Findings: Multiple views of the left hip demonstrate no acute fracture. No joint dislocation. Surgical clips in the deep pelvis. Moderate degenerative changes of the acetabulum without erosions or AVN. IMPRESSION: Moderate degenerative disease without evidence of acute osseous abnormality. Exam: X-RAYS OF THE LEFT HIP Clinical Indication: Left hip pain for 3 weeks. Now pain in left lower back as well. Technique: Two views of the left hip. Prior studies: No pr ior studies are submitted. Findings: Multiple v iews of the left hip demonstrate no acute fracture. No joint dislocation . Surgical clips in the deep pelvis. Moderate degenerative changes of the acetabulum without erosions or AVN. IMPRESSION: Moderate degenerative disease without evidence of acute osseous abnormality. X ray : Lumbar Spine 3 vw Reviewed date:08/17/2023 05:04:56 PM Interpretation:Normal Performing Lab: Notes/Report: Exam: X-RAYS OF THE LUMBAR SPINE Clinical data: Left hip pain for 3 weeks. Now pain in left lower back as well. Technique: Two views of the lumbar spine. Prior studies: No prior studies submitted. Findings: Motion artifact on the lateral view. Multilevel spondylosis. Moderate lower lumbar facet arthrosis. The disc space heights appear preserved. No fracture or subluxation. IMPRESSION: Limited study, described above. Degenerative disease without acute fracture. Diffuse anterior bridging osteophytic changes throughout. Recommendation: Exam: X-RAYS OF THE LUMBAR SPINE Clinical data: Left hip pain for 3 weeks. Now pain in left lower back as well. Technique: Two views of the lumbar spine. Prior studies: No pr ior studies submitted. Findings: Motion art ifact on the lateral view. Multilevel spondylosis. Moderate lower lumba r facet arthrosis. The disc space heights appear preserved. No fractu re or subluxation. IMPRESSION: Limited study, described above. Degenerative disease without acute fractu re. Diffuse anterior bridging osteophytic changes throughout. Recommendation: REASON FOR VISIT Left Hip Pain Medications Medication SIG (Take, Route, Frequency, Duration) [...] Answer Notes You are a former smoker Vital Signs Temperature 97.6 degrees Fahrenheit 08/14/20 23 Blood pressure systolic 146 mm Hg 08/14/20 23 Blood pressure diastolic 87 mm Hg 023 Heart Rate 70 /min 08/14/2023 Respiratory Rate 16 /min 08/14/2023 Height 68 in 08/14/2023 Weight 185 lbs 08/14/2023 BMI 28.13 kg/m2 08/14/2023 Oximetry 97 % 08/14/2023 Weight-kg 83.92 Kg 08/14/2023 Encounters Encounter Location Date Provider Diagnosis [address] [place] [address] 08/14/2023 Marcial Jacobo Arthralgia of hip, left M25.552 ; Strain of flexor muscle of left hip, initial encounter S76.012A and Strain of sacroiliac region S39.013A Assessments Encounter Date Diagnosis (ICD Code) Assessment Notes Treatment Notes Treatment Clinical Notes Section Notes 08/14/2023 Arthralgia of hip, left (ICD-10 - M25.552) XR views reviewed by provider, if applicable: 4 08/14/2023 Strain of flexor muscle of left hip, initial encounter (ICD-10 - S76.012A) 1. Take anti-inflammatory medications such as Advil or Aleve OTC as directed 2. Take Acetaminophenwith NSAIDs for more persistent pain 3. Apply warm compresses or icy-hot to the area Go to ER if symptoms worsen or if you develop fevers, inability to move neck, headaches, visual changes, vomiting or other serious issues. XR views reviewed by provider, if applicable: 4 08/14/2023 Strain of sacroiliac region (ICD-10 - S39.013A) Apply ice 3-4 times a day, the first 2-3 days, for 20 minutes each time to affected area. Day 3-4 apply a heating pad 3-4 times a day, for 20 minutes each time. NEVER sleep with a heating pad. Take medications as prescribed. no heavy lifting or exercising until cleared by your private doctor. XR views reviewed by provider, if applicable: 4 08/14/2023 Other Please follow up with your Primary Care Provider or with the Specialist listed within the next 2-4 days. PCP/Specialis t Referral:____ To find a Primary Care Provider or Specialist, please call our [facility] Referral Line: [facility] [phone] or [facility] [phone] XR views reviewed by provider, if applicable: 4 Plan Of Treatment Medication Medication Name Sig Start Date Stop Date Notes HYDROcodone-Acetaminophen 5- 325 MG 1 tablet as needed Orally every 6 hrs for 4 days 08/14/2023 Meloxicam 15 MG 1 tablet Orally Once a day for 14 days 08/14/2023 Treatment Notes Assessment Notes Other Please follow up with your Primary Care Provider or with the Specialist listed within the next 2-4 days. PCP/Specialist Referral: To find a Primary Care Provider or Specialist, please call our [facility] Referral Line: [facility] [phone] or [facility] [phone] Medications Administered Medication Instructions Date of Administration Dosage Notes Ketorolac 30mg/mL (Inj) 08/14/2023 30 mg Progress Notes * JOSE SHANKARDOB:1950 (73 yo M)Acc No.[id number]:08/14/2023 Patient:?JOSE SHANKAR Provider:?Marcial Jacobo MD :1950???Age:73 Y???Sex:Male Shalom e:08/14/2023 External Visit ID:[id number] Address:[address] [place] [address] Pcp:Does not have a PCP Subjective: * Chief Complaints: * ???1. Left Hip Pain. * HPI: ???-General Complaint:? 73 yo male presenting with L hip pain. Hip pain began 3 weeks and has been progressively getting worse while traveling from [place] to [place]. He did not have any traumas or problems causing the pain. Started taking 3 200 mg ibuprofen QID. Is unable to walk w/out excrutiating pain. Now, he has been using a wheel chair since yesterday. * ROS:?Constitutional:?Lethargy?denies.?Musculoskeletal:?other comments...?See HPI.? * Medical History:?Hypertensio n, Knee Replacement Surgery, Prostate Cancer 12 years ago. * Family History:?No Family Hi story documented..? * Social History:?2020 - Tobacco Use:?Tobacco Use/Smoking?You are a?former smoker * Medications:?Taking Dilt-XR , Taking Acyclovir , Taking Irbesartan * Allergies:?N.K.D.A. Objective: * Vitals:?Temp97.6 F, HR70 /mi n, BP146/87 mm Hg, Ht 68 in, Wt 185 lbs, Wt 83.92 Kg, BMI28.13 Index, RR16 /min, Oxygen sat %97 %. * Examination: ???ORTHO-system: ?EXTREMITIES:?left, hip, pedal pulses 2+ and equal bilaterally, minimally swollen, tender anteriorly over hip flexors and posterolaterally sacroiliac area, ROM minimally limited due to pain, Distal sensation and pulses normal, full weight bearing tolerated. Tight hip flexors..?General PE: ?GENERAL:?Uncomfortable, mild painful distress , alert and cooperative.?HEAD:?normocephalic, , atraumatic.?EYES:?both eyes, sclera non-icteric, no conjunctival injection.?HEART:?, well perfused.?LUNGS:?No respiratory distress , speaks in full sentences.?EXTREMITIES:?See above.?PSYCHIATRIC:?Affect normal, Interactive, conversant.?SKIN:?warm, dry, no rash on visible skin.?NEUROLOGIC:?appears alert and oriented x3, speech normal, moves all non- injured extremities, face symmetric.? Assessment: * Assessment: 1.?Arthralgia of hip, left - M25.552 (Primary)?2.?Strain of flexor muscle of left hip, initial encounter - S76.012A?3.?Strain of sacroiliac region - S39.013A? XR views reviewed by josé r, if applicable: 4. Plan: * Treatment: 2.?Strain of flexor muscle of left hip, initial encounter? Clinical Notes: 1. Take anti-inflammatory medications such as Advil or Aleve OTC as directed 2. Take Acetaminophenwith NSAIDs for more persistent pain 3. Apply warm compresses or icy-hot to the area Go to ER if symptoms worsen or if you develop fevers, inability to move neck, headaches, visual changes, vomiting or other serious issues.??3.?Strain of sacroiliac region? Start HYDROcodone-Acetaminophen Tablet, 5-325 MG, 1 tablet as needed, Orally, every 6 hrs, 4 days, 16 Tablet, Refills 0.?Imaging: X ray : Lumbar Spine 3 vw?Normal* Lexa Bryan 08/14/2023 12:23:44 PM >Shieldeed for all 2 exams. Wheelchair.Marcial Jacobo 08/14/2023 05:03:23 PM > preliminary interpretation, 3 views of lumbar spine, degenerative disease, no fracture, no bony lesionsMarcial Jacobo 08/17/2023 05:04:34 PM > Official radiology report consistent with wet read Preliminary report Results reviewed: No change in plan Clinical Notes: Apply ice 3-4 times a day, the first 2-3 days, for 20 minutes each time to affectedarea. Day 3-4 apply a heating pad 3-4 times a day, for 20 minutes each time. NEVER sleep with a heating pad. Take medications as prescribed. no heavy lifting or exercising until cleared by your private doctor.??4.?Others? Notes: Please follow up with your Primary Care Provider or with the Specialist listed within the next 2-4 days. PCP/Specialist Referral: To find a Primary Care Provider or Specialist, please call our [facility] Referral Line: [facility] [phone] or [facility] [phone] .?? * Therapeutic Injections:? Ketorolac SDV 30mg/1ml : 30 mg (Dose No:1) (Route: Intramuscular) given by Nathalie Calvo on left buttock (Arthralgia of hip, left) * Procedure Codes:?91261 X-RAY EXAM HIP UNI 2-3 VIEWS, 35503 X-RAY EXAM OF LOWER SPINE, J1885 Ketorolac SDV 30mg/1ml * Billing Information: * Visit Code:? 93044 URGENT CARE VISIT. * Procedure Codes:? 47303 X-RAY EXAM HIP UNI 2-3 VIEWS. 56187 X-RAY EXAM OF LOWER SPINE. J1885 Ketorolac SDV 30mg/1ml. * Sign off status: Completed true * Provider:?Marcial Jacobo MD Date:?08/14 Generated for Jenny heaton/Chris/eTransmitting on:?11/05/2024 05:09 PM PST History and Physical Notes * HPI (History of Present Illness) Category Sub-Category Detail Notes Category Not es -General Complaint 73 yo mal e presenting with L hip pain. Hip pain began 3 weeks and has been progressively getting worse while traveling from [place] to [place]. He did not have any traumas or problems causing the pain. Started taking 3 200 mg ibuprofen QID. Is unable to walk w/out excrutiating pain. Now, he has been using a wheel chair since yesterday. Examination Category Sub-Category Detail Notes Category Not es General PE GENERAL: Uncomfortable, m ild painful distress , alert and cooperative HEAD: normocephalic, , atr aumatic EYES: both eyes, sclera no n-icteric, no conjunctival injection HEART: , well perfused LUNGS: No respiratory distr ess , speaks in full sentences EXTREMITIES: See above NEUROLOGIC: appears alert and or iented x3, speech normal, moves all non-injured extremities, face symmetric PSYCHIATRIC: Affect normal, Inter active, conversant SKIN: warm, dry, no rash o n visible skin ORTHO-system EXTREMITIES: left, hip, pedal pulses 2+ and equal bilaterally, minimally swollen, tender anteriorly over hip flexors and posterolaterally sacroiliac area, ROM minimally limited due to pain, Distal sensation and pulses normal, full weight bearing tolerated. Tight hip flexors.
--- OUTSIDE RECORDS SUMMARY | 2024-11-05 19:10 | XMS_ITS ---
Author Organization Unknown Address [id number] [place] [phone] Phone Care Team Providers Care Head Start Assistant Teacher Name Role Phone EDILMA SAMUEL Attending Unavailable ANGELY MOJICA Primary Unavailable Immunization [...] Code Syst em Smoking History Former smoker [id number] SNOMED CT Sex Male Hospital Discharge Instructions [...] Code System No Known Allergies Moderate Active 879314242 SN OMED-CT Plan of Treatment US Kidney & Bladder (01519) 06/28/2021 MRI Lumbar WO Contrast (73106) 08/30/20 23 Encounters Encounter Diagnosis Start Date Code Code Sys tem Lumbar radiculopathy 09/03/2023 974680973 SNOMED- CT Personal Care Team Section Performer Name Performer Role Active Date Inactive YUNIOR Cuellar PCP - Primary care physician 2023-08-2 6
--- OUTSIDE RECORDS SUMMARY | 2024-11-05 19:11 | XMS_ITS | Clinical Summary ---
Author Organization [facility] Address [address] [place] [address] Care Team Providers Care Filter Changer Name Role Phone Rl Medina MD Primary Care Provider [phone] Source Comments [facility],non-owned Affiliates and Associated Physician Practices is amultiple site organization consisting of ambulatory clinics and hospital sitesin [place], [place], [place] and [place]. This disclosure is being madepursuant to the Care Everywhere program and may not contain all information available regarding this patient. Last updated 18.[facility] Allergies No known active allergies Medications * Be aware that medications may not be up to date on this document. Alwaysverify current medications with the patient. Medication Sig Dispensed Refills Start Date End Date Status DILT-XR 240 MG capsule Take 1 capsule by mouth once daily 09/06/2018 Active losartan (COZAAR) 100 MG tablet Take 1 tablet by mouth once daily 09/06/2018 Active MYRBETRIQ 50 MG tablet Take 1 tablet by mouth once daily 10/04/2018 Active omeprazole (PRILOSEC) 20 MG capsule Take 1 capsule by mouth once daily 09/06/2018 Active zolpidem (AMBIEN) 10 MG tablet Take 1 tablet by mouth once daily 09/06/2018 Active acyclovir (ZOVIRAX) 400 MG tablet Take 400 mg by mouth 3 times daily Active sildenafil (REVATIO) 20 MG tablet Take 20 mg by mouth 3 times daily Active nabumetone (RELAFEN) 750 MG tablet Take 1 tablet by mouth 2 times daily 60 tablet 5 10/25/2018 Active nabumetone (RELAFEN) 750 MG tablet Take 1 tablet by mouth 2 times daily 60 tablet 5 10/25/2018 Active Active Problems Problem Noted Date Diagnosed Date Primary osteoarthritis of left knee 10/25/2018 Presence of right artificial knee joint 10/25/20 18 Social History Tobacco Use Types Packs/Day Years Used Date Smoking Tobacco: Never Smokeless Tobacco: Never Sex and Gender Information Value Date Recorded Sex Assigned at Not on file Gender Identity Not on file Sexual Orientation Not on file Last Filed Vital Signs Vital Sign Reading Time Taken Comments Blood Pressure - - Pulse - - Temperature - - Respiratory Rate - - Oxygen Saturation - - Inhaled Oxygen Concentration - - Weight 86.2 kg (190 lb) 10/25/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 12 MONTHS 1950 HEPATITIS C SCREENING 06/13/1969 DTAP/TDAP/TD VACCINES (1 - Tdap) 1970 ZOSTER VACCINE (1 of 2) 2001 PNEUMOCOCCAL VACCINE 65+ (1 of 1 - PCV) 2016 SCREENING FOR DIABETES 10/25/2018 DEPRESSION SCREENING 11/05/2023 COVID-19 VACCINE (1 - 2023-2 5 season) 2024 INFLUENZA VACCINE (#1) 2024 Respiratory Syncytial Virus (RSV) Vaccine Pt: or over 60 yrs (1 - 1-dose 75+ series) 2026 HEPATITIS B VACCINE Aged Out No longe r eligible based on patient's age to complete this topic HIB VACCINE Aged Out No longer eligi ble based on patient's age to complete this topic HPV VACCINE Aged Out No longer eligi ble based on patient's age to complete this topic MENINGOCOCCAL VACCINE Aged Out No jesse marga eligible based on patient's age to complete this topic Care Teams Filter Changer Relationship Specialty Start Date End Date Rl Medina MD [address] [place] [phone] PCP - General Family Medicine 04/25/16
--- OUTSIDE RECORDS SUMMARY | 2024-11-05 19:11 | XMS_ITS | Encounter Summary ---
Author Organization [facility] Address [address] 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
--- OUTSIDE RECORDS SUMMARY | 2024-11-05 19:11 | XMS_ITS | Clinical Summary ---
Author Organization [facility] Address [address] [place] [address] [place] [address] Care Team Providers Care Coagulating Bath Mixer Name Role Phone SudeepRl campos Primary Care Provider [phone] Fransisco Heard MD Unavailable [phone] Medications omeprazole 20 MG capsuleIndicat ions:gastric reflux Take 20 mg by mouth daily. Indications: gastric reflux 9 Active losartan 100 MG tabletIndicati ons:hypertensi on Take 100 mg by mouth daily. Indications: hypertension Active dilTIAZem CD (DILTIAZEM CD) 240 MG 24 hr capsuleIndicat ions:hypertens ion Take 240 mg by mouth daily. Indications: hypertension Active mirabegron ER (MYRBETRIQ) 25 MG 24 hr tabletIndicati ons:hypertensi on Take 25 mg by mouth daily. Indications: hypertension Active Loratadine 10 MG CapIndications :allergies Take 1 tablet by mouth daily as needed (allergies). Indications: allergies Active Cyanocobalamin (VITAMIN B 12 OR)Indications :supplement Take 2,000 mcg by mouth daily. Indications: supplement Active Cholecalcifero l (VITAMIN D3) 125 MCG (5000 UT) TABLET DISPERSIBLEInd ications:suppl ement Take 1 tablet by mouth daily. Indications: supplement Active Glycerin-Hypro mellose-PEG 400 (VISINE TIRED EYE RELIEF) 0.2-0.36-1 % SolutionIndica tions:dry eyes Apply 1 drop to eye as needed (dry eyes). 1 drop each eyes as needed for dry eyes Indications: dry eyes Active aspirin 325 MG tabletIndicati ons:anticoagul ant Take 325 mg by mouth 2 (two) times daily. Indications: anticoagulant Active acetaminophen (TYLENOL) 500 MG tabletIndicati ons:fever, pain Take 500 mg by mouth every 6 (six) hours as needed for Fever or Pain. Indications: fever, pain Active Polyethylene Glycol 3350 (MIRALAX OR)Indications :constipation Take 17 g by mouth daily as needed (constipation). 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 Gender Identity Not on file Sexual Orientation Not on file Last Filed Vital Signs Vital Sign Reading Time Taken Comments Blood Pressure 128/76 10/16/2019 12:00 AM DRY CAN TENDER Pulse 60 10/14/2019 12:00 AM DRY CAN TENDER Temperature 36.9 ??C (98.4 ??F) 10/16/2019 12:[address] Respiratory Rate 18 10/16/2019 12:00 AM DRY CAN TENDER Oxygen Saturation 99% 10/06/2019 12:50 PM DRY CAN TENDER Inhaled Oxygen Concentration - - Weight - - Height - - Body Mass Index - - Plan of Treatment Health Maintenance Due Date Last Done Comments Colorectal Cancer Screening Colonoscopy (10 Years) 1950 Hepatitis C 1969 DTaP, Tdap and Td Vaccines ( 1 - Tdap) 1970 Zoster Vaccines (1 of 2) 2001 Annual Medicare Wellness Visit 2016 Pneumococcal Vaccine: 65+ Ye ars (1 of 1 - PCV) 2016 COVID-19 Vaccine ( - 2023-2 5 season) 2024 Influenza Adult (#1) 2024 RSV Immunization or 60+ Years (1 - 1-dose 75+ series) 2026 Meningococcal Vaccine Aged Out No jesse marga eligible based on patient's age to complete this topic RSV Immunizations Under 20 Months Aged Out No longer eligible based on patient's age to complete this topic Insurance MEDICARE Care Teams Coagulating Bath Mixer Relationship Specialty Start Date End Date Rl Medina DO [address] [place] [address] PCP - General FAMILY PRACTICE 10/01/19 Fransisco Heard MD [address] [place] [address] SURGERY 10/01/19
--- OUTSIDE RECORDS SUMMARY | 2024-11-05 19:11 | XMS_ITS | Encounter Summary ---
Author Organization [facility] Address [address] 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
--- OUTSIDE RECORDS SUMMARY | 2024-11-05 19:11 | XMS_ITS | Encounter Summary ---
Author Organization [facility] Address [address] 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
--- OUTSIDE RECORDS SUMMARY | 2024-11-05 19:11 | XMS_ITS | Encounter Summary ---
Author Organization [facility] Address [address] [facility] [place] [address] [place] [address] Care Team Providers Care Field Crop Farm Worker Name Role Phone SudeepRl campos Primary Care Provider [phone] Fransisco Heard MD Unavailable [phone] Reason for Visit * Reason Comments Total Knee Arth Encounter Details Date Type Department Care Team (Late st Contact Info) Description 10/06/2019 2:00 PM KNIFE MACHINE OPERATOR Home Care Visit [facility] Home Care [facility] [address] [place], [place] [id number] Mily Becerril, RN [address] [place] [address] SN OASIS START OF CARE Social History Tobacco Use Types Packs/Day Years Used Date Smoking Tobacco: Never Assessed Sex and Gender Information Value Date Recorded Sex Assigned at Not on file Legal Sex Male 11:34 PM 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 MACHINE OPERATOR Gender Identity Not on file Sexual Orientation Not on file documented as of this encounter Last Filed Vital Signs Vital Sign Reading Time Taken Comments Blood Pressure 126/66 10/06/2019 12:50 PM KNIFE MACHINE OPERATOR Pulse 68 10/06/2019 12:50 PM KNIFE MACHINE OPERATOR Temperature 36.6 ??C (97.8 ??F) 10/06/2019 12:[address] Respiratory Rate 16 10/06/2019 12:50 PM KNIFE MACHINE OPERATOR Oxygen Saturation 99% 10/06/2019 12:50 PM KNIFE MACHINE OPERATOR Inhaled Oxygen Concentration - - Weight - - Height - - Body Mass Index - - documented in this encounter Plan of Treatment Not on file documented as of this encounter Visit Diagnoses Not on filedocumented in this encounter Home Health Visit - Care Plan Visit Details Visit Type -SN - OASIS Start of Care Discipline -Fci Problems Problem Description Start Date Status Goals Interve ntions Fall Precautions Disciplines: Fci Patient at risk for falls or has had recent fall occurrence(s). 10/06/2019 Active 1 goal linked to scheduled/documen felipe intervention 2 goal interventions scheduled/document ed in this visit Discharge Planning Disciplines: Fci Discharge Planning 10/06/2019 Active 1 goal linked to scheduled/documen felipe intervention 1 goal intervention scheduled/document ed in this visit Care Coordination Disciplines: Fci Management and coordination of patient care 10/06/2019 Active 1 goal linked to scheduled/documen felipe intervention 1 goal intervention scheduled/document ed in this visit A Plan for Next Visit Disciplines: Fci Plan for next visit 10/06/2019 Active 1 goal linked to scheduled/documen felipe intervention 1 goal intervention scheduled/document ed in this visit Home Safety Disciplines: Fci Management and evaluation of patient's home environment 10/06/2019 Active 1 goal linked to scheduled/documen felipe intervention 1 goal intervention scheduled/document ed in this visit Physical Discomfort Disciplines: Fci Alteration in comfort 10/06/2019 Active 1 goal linked to scheduled/documen felipe intervention 1 goal intervention scheduled/document ed in this visit Medications Disciplines: Fci Management of home medications 10/06/2019 Active 1 goal linked to scheduled/documen felipe intervention 2 goal interventions scheduled/document ed in this visit Pulse Oximetry Disciplines: Fci Skilled assessment and monitoring of O2 saturations. 10/06/2019 Active 1 goal linked to scheduled/documen felipe intervention 1 goal intervention scheduled/document ed in this visit Wound Care Disciplines: Fci Alteration in skin integrity 10/06/2019 Active 1 goal linked to scheduled/documen felipe intervention 1 goal intervention scheduled/document ed in this visit Goals Goal Associated Problem Outcome Goal Met? Visit Notes Maintain Safe Environment Description: Patient/caregiver will demonstrate ability to maintain a safe environment without injuries/falls by end of plan of care Fall Precautions No Progress towards discharge Description: Documentation of ongoing progress towards goals through end of plan of care Discharge Planning No Coordination of Care Achieved Description: Coordination of care will be achieved by / through end of plan of care. Care Coordination No Provide Continuity of Care Description: To provide continuity of care A Plan for Next Visit No Remain Safe in Home Description: Patient will remain safe in their home as evidenced by no falls or injuries, through end of plan of intermediate Safety No Pain Reduced or Controlled Description: patient will report that pain has been reduced or controlled through verbal or non-verbal means and that measures to promote comfort are effective by end of plan of care Physical Discomfort No Understanding of Medication Regimen Description: patient will verbalize understanding of medications and proper administration of medication regimen by end of plan of care Medications No SN Pulse Oximetry Description: Pulse oximetry will be maintained at 90% or greater throughout plan of care Pulse Oximetry No Identify Signs/Symptoms of Infection Description: patient will demonstrate the ability to identify the signs/symptoms of infection by end of 2nd visit Wound Care No Interventions Intervention Associated Problem/Goal Status Variance Visit Notes Instruct on Fall Prevention Description: Educate patient about fall prevention. Problem:Fall Precautions Goal:Maintain Safe Environment Completed patient instructed on fall prevention measures per education sheet in admission folder PT Referral Description: Initiate PT referral for evaluation of strength, gait assessment Problem:Fall Precautions Goal:Maintain Safe Environment Completed PT referal made Plan Towards Discharge Description: Document patient progress towards discharge. Problem:Discharge Planning Goal:Progress towards discharge Completed discharge to self care when goals met Care Plan Collaboration Description: Care Plan Collaboration Problem:Care Coordination Goal:Coordination of Care Achieved Completed Care plan updates: Developed at this visit and collaborated with patient Plan for Next Visit Description: Next visit plan summation Problem:A Plan for Next Visit Goal:Provide Continuity of Care Completed wound care assessment Instruct Disaster/Evacuation Plan Description: Instruct in planning and execution of disaster/evacuation plan. Assist patient in development or revision of plan as indicated. Problem:Home Safety Goal:Remain Safe in Home Completed patient assisted in filling out emergency preparedness plan form Instruct on pain management techniques Description: Instruct patient on pharmacologic and nonpharmacologic pain management techniques. Problem:Physical Discomfort Goal:Pain Reduced or Controlled Completed patient taking tylenol for pain management Medication Reconciliation Description: Reconcile medications and identify any unnecessary therapeutic duplication. Each clinician to perform bottle check weekly on their first visit of the week. Problem:Medications Goal:Understanding of Medication Regimen Completed Medication reconciliation performed with weekly bottle check. Instruct medications Description: Assess effectiveness of current treatment regimen, including purpose, side effects, food/drug interactions, storage and potential complications, and notify physician of changes needed. Any changes will be reviewed with patient/caregiver, added to medication list, and updated on medication list in home. Patient to take medications from pill bottles set up by Patient. Problem:Medications Goal:Understanding of Medication Regimen Completed aspirin, tylenol, miralax SN to obtain pulse ox reading Description: SN to obtain pulse oximetry reading as ordered. Evaluate the effectiveness of current therapy, and notify physician of O2 saturations below90% Problem:Pulse Oximetry Goal:SN Pulse Oximetry Completed see assessment, wnl for patient Instruct wound care Description: Instruct patient/caregiver in R knee incision wound care as follows cleanse in shower with soap and water, pat dry Problem:Wound Care Goal:Identify Signs/Symptoms of Infection Completed patient instructed on wound care as ordered, verbalizes compliance documented in this encounter Care Teams Field Crop Farm Worker Relationship Specialty Start Date End Date Rl Medina DO [address] [place] [address] PCP - General FAMILY PRACTICE 10/01/19 Fransisco Heard MD [facility] [place] [address] SURGERY 10/01/19 documented as of this encounter
--- OUTSIDE RECORDS SUMMARY | 2024-11-05 19:11 | XMS_ITS | Encounter Summary ---
Author Organization [facility] Address [address] [facility] [place] [address] [place] [address] Care Team Providers Care Team Manager Name Role Phone Unavailable Primary Care Provider Unavailabl e Encounter Details Date Type Department Care Team (Late st Contact Info) Description 04/05/[address] 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
--- OUTSIDE RECORDS SUMMARY | 2024-11-05 19:11 | XMS_ITS | Encounter Summary ---
Author Organization [facility] Address [address] [facility] 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
--- OUTSIDE RECORDS SUMMARY | 2024-11-05 19:11 | XMS_ITS | Encounter Summary ---
Author Organization [facility] Address [address] [facility] [place] [address] [place] [address] Care Team Providers Care Cycle Repairer Name Role Phone Unavailable Primary Care Provider Unavailabl e Encounter Details Date Type Department Care Team (Late st Contact Info) Description 10/20/2014 Abstract [facility] PACU [address] [place] [address] French Valencia MD [address] [place] [address] Social History Tobacco Use Types Packs/Day Years Used Date Smoking Tobacco: Never Assessed Sex and Gender Information Value Date Recorded Sex Assigned at Not on file Legal Sex Male 11:34 PM PATIENT ESCORT Gender Identity Not on file Sexual Orientation Not on file documented as of this encounter Plan of Treatment Not on file documented as of this encounter Visit Diagnoses Diagnosis Other postoperative infection documented in this encounter
--- OUTSIDE RECORDS SUMMARY | 2024-11-05 19:11 | XMS_ITS | Encounter Summary ---
Author Organization [facility] Address [address] [facility] [place] [address] [place] [address] Care Team Providers Care Wind Energy Mechanic Name Role Phone SudeepRl campos Primary Care Provider [phone] Fransisco Heard MD Unavailable [phone] Encounter Details Date Type Department Care Team (Late st Contact Info) Description 10/14/2019 9:00 AM TIE PRESSER Home Care Visit [facility] Home Care [facility] [address] [place] [address] Lisa Lewis, PT PT HOME VISIT Social History Tobacco Use Types Packs/Day Years Used Date Smoking Tobacco: Never Assessed Sex and Gender Information Value Date Recorded Sex Assigned at Not on file Legal Sex Male 11:34 PM TIE PRESSER Gender Identity Not on file Sexual Orientation Not on file documented as of this encounter Last Filed Vital Signs Vital Sign Reading Time Taken Comments Blood Pressure 120/70 10/14/2019 12:00 AM TIE PRESSER Pulse 60 10/14/2019 12:00 AM TIE PRESSER Temperature 36.4 ??C (97.5 ??F) 10/14/2019 12:[address] Respiratory Rate 16 10/14/2019 12:00 AM TIE PRESSER Oxygen Saturation - - Inhaled Oxygen Concentration - - Weight - - Height - - Body Mass Index - - documented in this encounter Plan of Treatment Not on file documented as of this encounter Visit Diagnoses Not on filedocumented in this encounter Home Health Visit - Care Plan Visit Details Visit Type -PT - Home Visit Discipline -Physical Therapy Problems Problem Description Start Date Status Goals Interve ntions Discharge Planning Disciplines: Physical Therapy Discharge Planning 10/07/2019 Active 1 goal linked to scheduled/docume nted intervention 1 goal intervention scheduled/documen felipe in this visit A Plan for Next Visit Disciplines: Physical Therapy Plan for next visit 10/07/2019 Active 1 goal linked to scheduled/docume nted intervention 1 goal intervention scheduled/documen felipe in this visit Therapies Medications Disciplines: Physical Therapy Management of home medications 10/07/2019 Active 1 goal linked to scheduled/docume nted intervention 1 goal intervention scheduled/documen felipe in this visit Home Safety Disciplines: Physical Therapy Management and evaluation of patient's home environment 10/07/2019 Active 1 goal linked to scheduled/docume nted intervention 1 goal intervention scheduled/documen felipe in this visit PT Gait Training Disciplines: Physical Therapy Gait evaluation and training in appropriate use of assistive devices 10/07/2019 Active 1 goal linked to scheduled/docume nted intervention 1 goal intervention scheduled/documen felipe in this visit Therapies Establish or Upgrade Home Program Disciplines: Physical Therapy HEP 10/07/2019 Active 1 goal linked to scheduled/docume nted intervention 1 goal intervention scheduled/documen felipe in this visit PT Evaluation Disciplines: Physical Therapy Evaluation of the patient's condition, plans related to physical therapy, and rehabilitation potential. Evaluation of the home environment to eliminate structural barriers and to improve safety, increase functional independence through the use of ramps, and assistive/adaptive devices. 10/07/2019 Active 1 goal linked to scheduled/docume nted intervention 1 goal intervention scheduled/documen felipe in this visit Goals Goal Associated Problem Outcome Goal Met? Visit Notes Progress towards discharge Description: Provide documentation and verbal updates, of ongoing progress towards patients personal goals/ P.T. goals including discharge plan and d/c criteria through 10/18/19 Discharge Planning Progressing No Provide Continuity of Care Description: To provide continuity of care for P.T. through 10/18 A Plan for Next Visit Progressing No Therapies - Understanding of Medications - Physical Therapy Description: Patient will verbalize understanding of medication regimen by 10/07/19 Therapies Medications Progressing No Remain Safe in Home Description: Patient will remain safe in their home as evidenced by no falls or injuries, through 10/18/19 Home Safety Progressing No PT Gait Training Description: Pt will improve gait pattern to decrease excessive lateral sway, and to allow equal step length, heel to toe pattern consistently for distances of 250 feet or more on level indoor and outdoor surfaces by 10/18/19; pt will be able to negotiate a flight of stairs indep. with one step technique and curb or two steps leading with operative LE, independently to allow return to functional mobility by 10/18/19 PT Gait Training Progressing No Physical Therapy - Establish or Upgrade Home Program Description: Pt will demonstrate compliance/understanding of home exercise program including supine/prone/sitting/stand ing ther ex to improve functional strength and range of motion of right knee to allow return to normal activity with normalized functional scores: TUG score of 12 seconds or less, and improved Tinnetti score to at least 26/28 Therapies Establish or Upgrade Home Program Progressing No PT Evaulation Description: Patient will demonstrate improved active range of motion right knee to achieve 0 degrees to >/= 105 degrees flexion to allow patient to complete all transfers, including vehicle transfers, and stair ambulation safely and independently by 10/18/19. Pt will also be able to improve strength of knee extensors to at least 3+/5 with <=5 degrees of extension lag only to improve strength or right LE for stair ambulation PT Evaluation Progressing No Interventions Intervention Associated Problem/Goal Status Variance Visit Notes Plan Towards Discharge Description: Document patient progress towards discharge. Problem:Discharge Planning Goal:Progress towards discharge Completed Pt aware of discharge plans for Sunday; Pt plans to return to community soon and is returning to ortho surgeon on Saturday 10/20 for recheck. He may transition to outpatient PT at [facility] thereafter/ or return to his gym; pt signed the 3 day notice today; nurseMily is aware of plans for PT discharge on Sunday Plan for Next Visit Description: Next visit plan summation Problem:A Plan for Next Visit Goal:Provide Continuity of Care Completed Plan to continue gentle resisted ther ex using yellow theraband for quadriceps/hamstring strengthening; add prone knee flexion and steps ups on small step to HEP; Next visit planned for tomorrow morning 10/15 Review Medications Description: Review medications each visit and update patient's copy of medication list as needed. Ensure patient has an updated medication list and understands the need to keep list updated. Problem:Therapies Medications Goal:Therapies - Understanding of Medications - Physical Therapy Completed Pt denies any changes in medications and or side effects/ issues with medications. Pt continues to use his aspirin as blood thinner and will discuss meds on Sunday with his ortho surgeon Instruct Home Safety Description: Instruct patient on strategies/modificatio ns to home environment. Problem:Home Safety Goal:Remain Safe in Home Completed Educated pt to use shoes when practicing his gait pattern; discussed fall prevention, especially at night time. PT gait training Description: Evaluate and instruct patient in gait training using straight cane with transition to no device as soon as appropriate Problem:PT Gait Training Goal:PT Gait Training Completed Educated pt in normalizing gait pattern with increased right knee flexion at appropriate phase of gait pattern: educated pt in obtaining more heel to toe pattern and addition of arm swing as able. Pt verbalized understanding and ambulated for at least 300 feet on level surfaces today. 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 pt in gentle resisted long arc quads and knee flexion activity against light resistance. Inst. pt in sit to stand activity working on equal WB through LEs during concentric/eccentric periods of muscle activation: Pt completed sidestepping activity, and single limb stance, slow marching in place, sit and scoot stretching to achieve right knee flexion of 107 degrees flexion. Pt assisted/ inst. in safe use of pedaller for 5 minutes with slight resistance added after 3 minutes today. Pt tolerated all ther ex well and denied any increased pain after ther ex. Therapies ROM Description: Assess ROM and instruct in techniques to improve through ther ex, and functional activities Problem:PT Evaluation Goal:PT Evaulation Completed Pt inst. in options to increase flexion of the right knee ( seated and scooting forward activity, step stretch, supine and seated positions). Pt assisted to achieve 107 degrees flexion in sitting position: pt achieved 0 degrees extension in supine in heel prop position. documented in this encounter Care Teams Wind Energy Mechanic Relationship Specialty Start Date End Date Rl Medina DO [address] [place] [address] PCP - General FAMILY PRACTICE 10/01/19 Fransisco Heard MD [address] [place] [address] SURGERY 10/01/19 documented as of this encounter
--- OUTSIDE RECORDS SUMMARY | 2024-11-05 19:11 | XMS_ITS | Encounter Summary ---
Author Organization [facility] Address [address] [facility] [place] [address] Care Team Providers Care Process Control Tech Name Role Phone Rl Medina MD Primary Care Provider [phone] Reason for Visit * Reason Comments Establish Care New patient, param al knee pain. Encounter Details Date Type Department Care Team (Latest Contact Info) Description 10/25/2018 11:40 AM FISH HATCHERY ASSISTANT Office Visit [facility] [id number] [place] [phone] [place] [address] [address] Primary osteoarthritis of left knee (Primary Dx); Pain in both knees, unspecified chronicity; Presence of right artificial knee joint Social History Tobacco Use Types Packs/Day Years [...] 86.2 kg (190 lb) 10/25/2018 12:22 PM FISH HATCHERY ASSISTANT Height 175.3 cm (5' 9 ) 10/25/2018 12:22 PM FISH HATCHERY ASSISTANT Body Mass Index 28.06 10/25/2018 12:22 PM FISH HATCHERY ASSISTANT documented in this encounter Patient Instructions * Patient Instructions* Dara Felton - 10/25/2018 12:23 PM FISH HATCHERY ASSISTANT Please call the office with any questions or concerns. HATCHERY ASSISTANT documented in this encounter Progress Notes * Jeremias Earl PA-C - 10/25/2018 12:51 PM CST Left nb-b , right cr tka resurfaced patella nsaid , HATCHERY ASSISTANT * Dara Felton - 10/25/2018 12:22 PM CST New patient, bilateral knee pain. 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 He had his right knee done by an outside surgeon, sounds like back in 2013. A couple months later, he developed a superficial staph infection, got washed out a little bit, did fair with it. The knee did okay. He still was having some problems, especially with walking and standing for a period of time. He would complain of some achiness. The left one started to act up like this along that medial joint line, and he was thinking that he may need a left knee replacement. He denies any fevers or chills. No swelling. Overall, the knee is getting around pretty well. He describes his knee pain presently as 2/10. On occasion, he does take some anti-inflammatories that does seem to relieve some of his symptomatology. PAST MEDICAL HISTORY: High blood pressure and anxiety. MEDICATIONS: He is on Cozaar, Prilosec, Ambien, Zovirax, and sildenafil. CLINICAL EXAMINATION: He is 5 feet 9 inches, 190, BMI of 28. Excellent range of motion of the hips. The right knee shows a well-healed incision. No evidence of any infection. No effusion. Motion, he is 0 to 120 with some moderate mid flexion instability. Left knee shows no evidence of an effusion, very good stability, some mild varus laxity. RADIOGRAPHS: Do show looks like a Juan Manuel cemented cruciate retaining total knee with a resurfaced patella that is cemented. He does have pretty large tibial slope up on the lateral side, but the implant looks solid, looks well aligned, but the tibial slope looks quite extensive. The left knee shows near [id number]-[id number] degenerative change along the medial joint line with some moderate degenerative changes in the patellofemoral joint. IMPRESSION: Medium near [id number]-mu-roik degenerative changes along the left medial joint line, some mild pes anserine and total knee. PLAN: I am going to start him on Relafen. We are going to see how this goes over the next several weeks. He should do well with this. If things are still symptomatic, I would be inclined to get a sed rate and C-reactive protein on that right knee, just to rule out infection, but he should do well with this. JERI Dumont M.D. BERYLD/Delroy #: [id number] HATCHERY ASSISTANT documented in this encounter Procedure Notes * Suzanne Capone - 10/25/2018 12:17 PM CSTAssociated Order(s): XR KNEE BILAT 3VW Please see progress notes for result. HATCHERY ASSISTANT documented in this encounter Plan of Treatment Not on file documented as of this encounter Procedures Procedure Name Priority Date/Time Associated Diagnosis Comments XR KNEE BILAT 3VW Routine 10/25/2018 12: 16 PM FISH HATCHERY ASSISTANT Pain in both knees, unspecified chronicity documented in this encounter Results * XR KNEE BILAT 3VW (10/25/2018 12:16 PM FISH HATCHERY ASSISTANT) Anatomical Region Laterality Modality Lower Extremity Computed Radiogr aphy Narrative 11/12/2018 6:27 PM FISH HATCHERY ASSISTANT Suzanne Capone ? 11/12/2018 ??6:27 PM Please see progress notes for result. Carlos Manuel [place] MD DIAGNOSTIC IMAGING O RDERABLES documented in this encounter Visit Diagnoses Diagnosis Primary osteoarthritis of left knee- Primary Primary localized osteoarthrosis, lower leg Pain in both knees, unspecified chronicity Presence of right artificial knee joint Knee joint replacement by other means documented in this encounter Care Teams Process Control Tech Relationship Specialty Start Date End Date Rl Medina MD [address] [place] [phone] PCP - General Family Medicine 04/25/16 documented as of this encounter
--- OUTSIDE RECORDS SUMMARY | 2024-11-05 19:11 | XMS_ITS | Encounter Summary ---
Author Organization [facility] Address [address] [facility] [place] [address] [place] [address] Care Team Providers Care Learning Specialist Name Role Phone Rl Medina DO Primary Care Provider [phone] Fransisco Heard MD Unavailable [phone] Encounter Details Date Type Department Care Team (Late st Contact Info) Description 10/06/2019 Plan of Care Documentation [facility] Home Care [facility] [address] [place] [address] Social History Tobacco Use Types Packs/Day Years Used Date Smoking Tobacco: Never Assessed Sex and Gender Information Value Date Recorded Sex Assigned at Not on file 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
--- OUTSIDE RECORDS SUMMARY | 2024-11-05 19:11 | XMS_ITS | Encounter Summary ---
Author Organization [facility] Address [address] [facility] 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
--- OUTSIDE RECORDS SUMMARY | 2024-11-05 19:11 | XMS_ITS | Encounter Summary ---
Author Organization [facility] Address [address] [facility] [place] [address] [place] [address] Care Team Providers Care Sports Medicine Physician Name Role Phone SudeepRl campos Primary Care Provider [phone] Fransisco Heard MD Unavailable [phone] Encounter Details Date Type Department Care Team (Late st Contact Info) Description 10/09/2019 8:00 PM ENGRAVER Home Care Visit [facility] Home Care [facility] [address] [place] [address] Mily Becerril RN [address] [place] [address] SN DISCIPLINE DISCHARGE Social History Tobacco Use Types Packs/Day Years Used Date Smoking Tobacco: Never Assessed Sex and Gender Information Value Date Recorded Sex Assigned at Not on file 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 10/06/2019 Resolved on 10/09/2019 1 goal linked to scheduled/documen felipe intervention 1 goal intervention scheduled/document ed in this visit Discharge Planning Disciplines: Senior Living Discharge Planning 10/06/2019 Resolved on 10/09/2019 1 goal linked to scheduled/documen felipe intervention 1 goal intervention scheduled/document ed in this visit Care Coordination Disciplines: Senior Living Management and coordination of patient care 10/06/2019 Resolved on 10/09/2019 1 goal linked to scheduled/documen felipe intervention 1 goal intervention scheduled/document ed in this visit A Plan for Next Visit Disciplines: Senior Living Plan for next visit 10/06/2019 Resolved on 10/09/2019 1 goal linked to scheduled/documen felipe intervention 1 goal intervention scheduled/document ed in this visit Home Safety Disciplines: Senior Living Management and evaluation of patient's home environment 10/06/2019 Resolved on 10/09/2019 1 goal linked to scheduled/documen felipe intervention 1 goal intervention scheduled/document ed in this visit Physical Discomfort Disciplines: Senior Living Alteration in comfort 10/06/2019 Resolved on 10/09/2019 1 goal linked to scheduled/documen felipe intervention 1 goal intervention scheduled/document ed in this visit Medications Disciplines: Senior Living Management of home medications 10/06/2019 Resolved on 10/09/2019 1 goal linked to scheduled/documen felipe intervention 2 goal interventions scheduled/document ed in this visit Pulse Oximetry Disciplines: Senior Living Skilled assessment and monitoring of O2 saturations. 10/06/2019 Resolved on 10/09/2019 1 goal linked to scheduled/documen felipe intervention 1 goal intervention scheduled/document ed in this visit Wound Care Disciplines: Senior Living Alteration in skin integrity 10/06/2019 Resolved on 10/09/2019 1 goal linked to scheduled/documen felipe intervention [...] or injuries, through end of plan of nursing home Safety No Pain Reduced or Controlled Description: [...] fall prevention. Problem:Fall Precautions Goal:Maintain Safe Environment Scheduled Plan Towards Discharge Description: Document patient progress towards discharge. Problem:Discharge Planning Goal:Progress towards discharge Scheduled Care Plan Collaboration Description: Care Plan Collaboration Problem:Care Coordination Goal:Coordination of Care Achieved Scheduled Plan for Next Visit Description: Next visit plan summation Problem:A Plan for Next Visit Goal:Provide Continuity of Care Scheduled Instruct Disaster/Evacuation Plan Description: Instruct in planning and execution of disaster/evacuation plan. Assist patient in development or revision of plan as indicated. Problem:Home Safety Goal:Remain Safe in Home Scheduled Instruct on pain management techniques Description: Instruct patient on pharmacologic and nonpharmacologic pain management techniques. Problem:Physical Discomfort Goal:Pain Reduced or Controlled Scheduled Medication Reconciliation Description: Reconcile medications and identify any unnecessary therapeutic duplication. Each clinician to perform bottle check weekly on their first visit of the week. Problem:Medications Goal:Understanding of Medication Regimen Scheduled Instruct medications Description: Assess effectiveness of current treatment regimen, including purpose, side effects, food/drug interactions, storage and potential complications, and notify physician of changes needed. Any changes will be reviewed with patient/caregiver, added to medication list, and updated on medication list in home. Patient to take medications from pill bottles set up by Patient. Problem:Medications Goal:Understanding of Medication Regimen Scheduled SN to obtain pulse ox reading Description: SN to obtain pulse oximetry reading as ordered. Evaluate the effectiveness of current therapy, and notify physician of O2 saturations below90% Problem:Pulse Oximetry Goal:SN Pulse Oximetry Scheduled Instruct wound care Description: Instruct patient/caregiver in R knee incision wound care as follows cleanse in shower with soap and water, pat dry Problem:Wound Care Goal:Identify Signs/Symptoms of Infection Scheduled documented in this encounter Care Teams Sports Medicine Physician Relationship Specialty Start Date End Date Rl Medina DO [address] [place] [address] PCP - General FAMILY PRACTICE 10/01/19 Fransisco Heard MD [address] [place] [address] SURGERY 10/01/19 documented as of this encounter
--- OUTSIDE RECORDS SUMMARY | 2024-11-05 19:11 | XMS_ITS | Encounter Summary ---
Author Organization [facility] Address [address] [facility] [place] [address] [place] [address] Care Team Providers Care Farm Management Teacher Name Role Phone SudeepRl campos Primary Care Provider [phone] Fransisco Heard MD Unavailable [phone] Encounter Details Date Type Department Care Team (Late st Contact Info) Description 10/16/2019 8:15 AM MUTUEL CASHIER Home Care Visit [facility] Home Care [facility] [address] [place] [address] Lisa Lewis, PT PT OASIS DISCHARGE Social History Tobacco Use Types Packs/Day Years Used Date Smoking Tobacco: Never Assessed Sex and Gender Information Value Date Recorded Sex Assigned at Not on file Legal Sex 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 Gender Identity Not on file Sexual Orientation Not on file documented as of this encounter Last Filed Vital Signs Vital Sign Reading Time Taken Comments Blood Pressure 128/76 10/16/2019 12:00 AM MUTUEL CASHIER Pulse - - Temperature 36.9 ??C (98.4 ??F) 10/16/2019 12:[address] Respiratory Rate 18 10/16/2019 12:00 AM MUTUEL CASHIER Oxygen Saturation - - Inhaled Oxygen Concentration - - Weight - - Height - - Body Mass Index - - documented in this encounter Plan of Treatment Not on file documented as of this encounter Visit Diagnoses Not on filedocumented in this encounter Home Health Visit - Care Plan Visit Details Visit Type -PT - OASIS Disch arge Discipline -Physical Therapy Problems Problem Description Start [...] and d/c criteria through 10/18/19 Discharge Planning Completed Yes Provide Continuity of Care Description: To provide continuity of care for P.T. through 10/18 A Plan for Next Visit Completed Yes Therapies - Understanding of Medications - Physical Therapy Description: Patient will verbalize understanding of medication regimen by 10/07/19 Therapies Medications Completed Yes Remain Safe in Home Description: Patient will remain safe in their home as evidenced by no falls or injuries, through 10/18/19 Home Safety Completed Yes PT Gait Training Description: Pt will improve [...] functional mobility by 10/18/19 PT Gait Training Completed Yes Physical Therapy - Establish or Upgrade Home Program Description: Pt will demonstrate compliance/understanding of home exercise program including supine/prone/sitting/standi ng ther ex to improve functional strength and range of motion of right knee to allow return to normal activity with normalized functional scores: TUG score of 12 seconds or less, and improved Tinnetti score to at least 26/28 Therapies Establish or Upgrade Home Program Completed Yes PT Evaulation Description: Patient will demonstrate improved [...] right LE for stair ambulation PT Evaluation Completed Yes Interventions Intervention Associated Problem/Goal Status Variance Visit Notes Plan Towards Discharge Description: Document patient progress towards discharge. Problem:Discharge Planning Goal:Progress towards discharge Completed 3 day intent to discharge form was signed on this past Sunday and pt is in full agreement with discharge from all services today; he has returned to work and is driving as of yesterday. Pt will speak to his physician on Sunday re needs for outpatient P.T., however pt may not need as his progress is excellent Plan for Next Visit Description: Next visit plan summation Problem:A Plan for Next Visit Goal:Provide Continuity of Care Completed No further planned visits/ discharge completed from agency today due to patient is no longer homebound and has returned to driving today. Pt is in agreement and is indep. with home ex. program Review Medications Description: Review medications each visit and update patient's copy of medication list as needed. Ensure patient has an updated medication list and understands the need to keep list updated. Problem:Therapies Medications Goal:Therapies - Understanding of Medications - Physical Therapy Completed Pt has good understanding of all medications and is not taking any pain medications at this time and does not feel that he needs any. Pt will speak with his surgeon on Sunday re medications Instruct Home Safety Description: Instruct patient on strategies/modificatio ns to home environment. Problem:Home Safety Goal:Remain Safe in Home Completed Pt was instructed in continueing one foot at a time sequencing on stairs, as comfortable to ensure safety and is inst. to always use hand rail to prevent falls PT gait training Description: Evaluate and instruct patient in gait training using straight cane with transition to no device as soon as appropriate Problem:PT Gait Training Goal:PT Gait Training Completed Pt has not required any assistive device during this episode of home health care: pt is ambulating without a device for at least 300 feet at a time on paved outdoor surfaces, all indoor surfaces and stairs with verbal cues to normalize gait pattern. 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/ osteoarthritis of right knee Problem:Therapies Establish or Upgrade Home Program Goal:Physical Therapy - Establish or Upgrade Home Program Completed Pt was given step ups leading with operative LE, sit to stands from various height chairs, prone knee flexion, sidestepping activity, mini squats, heel raises, resisted long arc quads using light theraband, resisted hamstring curls using the same; use of pedaller for 10 minutes with progressively increased proximity of pedaller to increase flexion of right knee Therapies ROM Description: Assess ROM and instruct in techniques to improve through ther ex, and functional activities Problem:PT Evaluation Goal:PT Evaulation Completed Pt achieved 110 degrees flexion right knee in sitting and 0 degrees extension in supine today: Pt educated in sit and scoot forward knee flexion stretching, use of pedaller and AROM in supine, prone and standing to ensure continued progress with ROM to the right knee. Pt will likely continue to improve and achieve more flexion range of motion with time and continued exercise. documented in this encounter Care Teams Farm Management Teacher Relationship Specialty Start Date End Date Rl Medina DO [address] [place] [address] PCP - General FAMILY PRACTICE 10/01/19 Fransisco Heard MD [address] [place] [address] SURGERY 10/01/19 documented as of this encounter
--- OUTSIDE RECORDS SUMMARY | 2024-11-05 19:11 | XMS_ITS ---
Author Organization Unknown Address [address] [place] [phone] Phone Care Team Providers Care Director Inpatient Headache Program Name Role Phone REGULO DOTY Attending Unavailable HEAVEN MOJICA Primary Unavailable Immunization [...] mcg/0.3 mL 07/22/2023 Completed 309 CVX Results PROTIME - Collect Date/Time: 11/07/2023 19:10 [facility] ID: [id number] [address] [place] [address], [id number] LOINC: 85837-6 Test Value Unit Reference Range Code Code System Flag PT 10.8 Sec L=9.7 H=11.7 30374-5 LOINC INR 1.0 Sec L=0.9 H=1.1 56549-4 LOINC PTT - Collect Date/Time: 01/2024 19:10 [facility] ID: [id number] [address] [place] [address], [id number] LOINC: 59519-3 Test Value Unit Reference Range Code Code System Flag PTT 29.0 Sec L=23.0 H=31.2 CBC W/ DIFF - Collect Date/T payton: 11/07/2023 19:10 [facility] ID: [id number] [address] [place], [place], [phone] LOINC: 36555-3 Test Value Unit Reference Range Code Code System Flag WBC 13.4 10^3uL L=4.8 H=10.8 H RBC 3.22 10^6uL L=4.60 H=6.20 L HEMOGLOBIN 9.8 g/dL L=14.0 H=18.0 718-7 LOINC L HEMATOCRIT 30.7 VOL% L=42.0 H=52.0 4544-3 LOINC L MCV 95.3 fL L=80.0 H=94.0 H MCH 30.4 pg L=27.0 H=32.0 MCHC 31.9 g/dL L=32.0 H=36.0 L PLATELETS 346 10^3uL L=100 H=400 22082-6 LOINC RDW 13.7 % L=11.7 H=15.5 %GRAN 83.5 % L=40.0 H=70.0 14655-0 LOINC H %LYMPH 8.6 % L=20.0 H=45.0 736-9 LOINC L %MONO 6.5 % L=2.0 H=10.0 01585-3 LOINC %EOS 0.7 % L=0.0 H=6.0 713-8 LOINC %BASO 0.3 % L=0.0 H=3.0 706-2 LOINC #NEUT 11.1 10^3uL L=1.9 H=7.6 72602-5 LOINC H #LYMPH 1.2 10^3uL L=0.9 H=4.9 78367-8 LOINC #MONO 0.9 10^3uL L=0.1 H=0.9 88373-4 LOINC #EOS 0.1 10^3uL L=0.0 H=0.6 712-0 LOINC #BASO 0.04 10^3uL L=0.00 H=0.10 72495-0 LOINC #IM GRANS 0.1 10^3uL L=0.0 H=7.0 91877-5 LOINC %IM GRANS 0.4 % L=0.0 H=5.0 15065-1 LOINC %NRB 0.0 L=0.0 H=0.2 61889-9 LOINC #NRB 0.000 L=0.000 H=0.012 00519-6 LOINC MANUAL DIFF NOT INDICATED RBC MORPH NOT INDICATED COMPREHENSIVE METABOLIC PANE L - Collect Date/Time: 11/07/2023 19:10 [facility] ID: [id number] [address] [place], [place], [phone] LOINC: 57620-3 Test Value Unit Reference Range Code Code System Flag FASTING UNKNOWN BUN 13 mg/dL L=7 H=20 3094-0 LOINC CREATININE 0.90 mg/dL L=0.66 H=1.25 2160-0 LOINC GLUCOSE 153 mg/dL L=74 H=106 2345-7 LOINC H SODIUM 136 mmol/L L=132 H=144 2951-2 LOINC POTASSIUM 4.0 mmol/L L=3.5 H=5.1 2823-3 LOINC CHLORIDE 101 mmol/L L=98 H=107 2075-0 LOINC CO2 24.0 mmol/L L=22.0 H=30.0 8-9 LOINC ANION GAP 15 L=10 H=20 89561-2 LOINC OSMOLALITY 285 mOs/kG L=280 H=296 58183-5 LOINC BUN/CREAT 14.4 3097-3 LOINC CALCIUM 9.0 mg/dL L=8.3 H=10.5 59192-6 LOINC AST 24 U/L L=15 H=46 1920-8 LOINC ALT 34 U/L L=9 H=72 1742-6 LOINC ALKALINE PHOS 148 U/L L=38 H=126 6768-6 LOINC H TOTAL BILI 0.7 mg/dL L=0.2 H=1.3 1975-2 LOINC ALBUMIN 3.7 G/dL L=3.5 H=5.0 1751-7 LOINC TOTAL PROTEIN 7.9 g/L L=6.3 H=8.2 2885-2 LOINC A/G RATIO 0.9 65891-1 LOINC AGE 73 98760-8 LOINC eGFR NON-AFR 88 ml/min eGFR AFR AMER 106 ml/min Social History Type Status Start Date End Date Code Code Syst em Smoking History Former smoker [id number] SNOMED CT Sex Male Hospital Discharge Instructions [...] Code System No Known Allergies Moderate Active 385615922 SN OMED-CT Plan of Treatment US Kidney & Bladder (26926) 06/28/2021 MRI Lumbar WO Contrast (09333) 08/30/20 23 Encounters Encounter Diagnosis Start Date Code Code Sys tem Anesthesia of skin 11/07/2023 SNOMED-CT Personal Care Team Section Performer Name Performer Role Active Date Inactive YUNIOR Cuellar PCP - Primary care physician 2022-10-2 6
--- OUTSIDE RECORDS SUMMARY | 2024-11-05 19:11 | XMS_ITS | Encounter Summary ---
Author Organization [facility] Address [address] [facility] [place] [address] [place] [address] Care Team Providers Care Life Sciences Director Name Role Phone Unavailable Primary Care Provider Unavailabl e Encounter Details Date Type Department Care Team (Late st Contact Info) Description 12/13/[address] 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
--- OUTSIDE RECORDS SUMMARY | 2024-11-05 19:11 | XMS_ITS | Encounter Summary ---
Author Organization [facility] Address [address] [facility] [place] [address] [place] [address] Care Team Providers Care Catering Server Name Role Phone Unavailable Primary Care Provider Unavailabl e Encounter Details Date Type Department Care Team (Late st Contact Info) Description 05/09/[address] 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
--- OUTSIDE RECORDS SUMMARY | 2024-11-05 19:11 | XMS_ITS | Encounter Summary ---
Author Organization [facility] Address [address] [facility] [place] [address] [place] [address] Care Team Providers Care Appointment Setter Name Role Phone SudeepRl campos Primary Care Provider [phone] Fransisco Heard MD Unavailable [phone] Encounter Details Date Type Department Care Team (Latest Contact Info) Description 10/07/2019 9:15 AM MANGA ARTIST Home Care Visit [facility] Home Care [facility] [address] [place] [address] Lisa Lewis, PT PT INITIAL EVALUATION Social History Tobacco Use Types Packs/Day Years Used Date Smoking Tobacco: Never Assessed Sex and Gender Information Value Date Recorded Sex Assigned at Not on file 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 Gender Identity Not on file Sexual Orientation Not on file documented as of this encounter Last Filed Vital Signs Vital Sign Reading Time Taken Comments Blood Pressure 124/64 10/07/2019 12:00 AM MANGA ARTIST Pulse 74 10/07/2019 12:00 AM MANGA ARTIST Temperature 36.4 ??C (97.5 ??F) 10/07/2019 12:[address] Respiratory Rate 16 10/07/2019 12:00 AM MANGA ARTIST Oxygen Saturation - - Inhaled Oxygen Concentration - - Weight - - Height - - Body Mass Index - - documented in this encounter Plan of Treatment Not on file documented as of this encounter Visit Diagnoses Not on filedocumented in this encounter Home Health Visit - Care Plan Visit Details Visit Type -PT - Initial Keysha luation Discipline -Physical Therapy Problems Problem Description Start [...] Upgrade Home Program Description: Pt will demonstrate compliance/understandin g of home exercise program including supine/prone/sitting/st anding ther ex to improve functional strength and [...] for stair ambulation PT Evaluation Progressing No ROM was 0 degrees to 90 degrees flexion today ( measured in supine and sitting respectively) Interventions Intervention Associated Problem/Goal Status Variance Visit Notes Plan Towards Discharge Description: Document patient progress towards discharge. Problem:Discharge Planning Goal:Progress towards discharge Completed Discussed P.T. plan of care including frequency/ duration of PT while patient homebound, with likely transition to outpatient after next week ( 3 x week for 2 weeks) Plan for Next Visit Description: Next visit plan summation Problem:A Plan for Next Visit Goal:Provide Continuity of Care Completed next visit planned for 10/09 and pt and verbalize awareness; progress ther ex program given after obtaining return demonstration, complete gait trainng on stairs and outdoor paved surfaces. Review Medications Description: Review medications each visit and update patient's copy of medication list as needed. Ensure patient has an updated medication list and understands the need to keep list updated. Problem:Therapies Medications Goal:Therapies - Understanding of Medications - Physical Therapy Completed Pt verbalized good understanding of all medications, and reports that he is currently not using a narcotic and doesnt feel that he needs one; reports good pain control Instruct Home Safety Description: Instruct patient on strategies/modificatio ns to home environment. Problem:Home Safety Goal:Remain Safe in Home Completed Recommended use of walker or cane at night time or first thing in the morning to prevent falls PT gait training Description: Evaluate and instruct patient in gait training using straight cane with transition to no device as soon as appropriate Problem:PT Gait Training Goal:PT Gait Training Completed educated pt to obtain better heel strike/ heel to toe pattern and knee flexion of right knee: inst. pt to gradually increase distance of ambulation to increase endurance and strength. REcommended use of straight cane but patient refuse at this time. 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 pt to complete twice daily: discussed walking program as part of his HEP as well and he verbalized good understanding Therapies ROM Description: Assess ROM and instruct in techniques to improve through ther ex, and functional activities Problem:PT Evaluation Goal:PT Evaulation Completed Provided initial instruction in ther ex: range of motion ( heel slides in supine ) with verbal cues given to hold stretch at end range flexion, heel props, straight leg raises ( verbal cues to isolate quadriceps mm effectively, short arc quads, quad sets, ankle pumps, all for 15 reps. Inst. pt in seated knee flexion ( heel slides), standing hamstring curls ( cues to isolate knee flexion motion only), and heel and toe raises for 15 reps each. Provided written pictoral ther ex program and inst. pt to complete twice daily/ he verbalized understanding documented in this encounter Care Teams Appointment Setter Relationship Specialty Start Date End Date Rl Medina DO [address] [place] [address] PCP - General FAMILY PRACTICE 10/01/19 Fransisco Heard MD [address] [place] [address] SURGERY 10/01/19 documented as of this encounter
--- OUTSIDE RECORDS SUMMARY | 2024-11-05 19:11 | XMS_ITS | Encounter Summary ---
Author Organization [facility] Address [address] [facility] [place] [address] [place] [address] Care Team Providers Care Pencil Inspector Name Role Phone Rl Medina DO Primary Care Provider [phone] Fransisco Heard MD Unavailable [phone] Encounter Details Date Type Department Care Team (Late st Contact Info) Description 10/09/2019 Home Care Visit [facility] Home Care [facility] [address] [place] [address] Lisa Lewis, PT CASE COMMUNICATION Social History Tobacco Use Types Packs/Day Years Used Date Smoking Tobacco: Never Assessed Sex and Gender Information Value Date Recorded Sex Assigned at Not on file 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
--- OUTSIDE RECORDS SUMMARY | 2024-11-05 19:11 | XMS_ITS | Patient Health Summary ---
Author Organization [facility] Address [address] [facility] [place] [address] Care Team Providers Care Tire Builder Heavy Service Name Role Phone Rl Medina MD Primary Care Provider [phone] Note from [facility],non-owned Affiliates and Associated Physician Practices is amultiple site organization consisting of ambulatory clinics and hospital sitesin [place], [place], [place] and [place]. This disclosure is being madepursuant to the Care Everywhere program and may not contain all information available regarding this patient. Last updated 18.[facility] [employer] Allergies No known active allergies Medications * Be aware that medications may not be up to date on this document. Alwaysverify current medications with the patient. * DILT-XR 240 MG capsule(Started 09/06/2018) Take 1 capsule by mouth once daily * losartan (COZAAR) 100 MG tablet(Started 09/06/2018) Take 1 tablet by mouth once daily * MYRBETRIQ 50 MG tablet(Started 10/04/2018) Take 1 tablet by mouth once daily * omeprazole (PRILOSEC) 20 MG capsule(Started 09/06/2018) Take 1 capsule by mouth once daily * zolpidem (AMBIEN) 10 MG tablet(Started 09/06/2018) Take 1 tablet by mouth once daily * acyclovir (ZOVIRAX) 400 MG tablet Take 400 mg by mouth 3 times daily * sildenafil (REVATIO) 20 MG tablet Take 20 mg by mouth 3 times daily * nabumetone (RELAFEN) 750 MG tablet(Started 10/25/2018) Take 1 tablet by mouth 2 times daily 5 refills remaining * nabumetone (RELAFEN) 750 MG tablet(Started 10/25/2018) Take 1 tablet by mouth 2 times daily 5 refills remaining Active Problems Problem Noted Date Diagnosed Date [...] 86.2 kg (190 lb) 10/25/2018 12:22 PM COLD MEAT COOK Height 175.3 cm (5' 9 ) 10/25/2018 12:22 PM COLD MEAT COOK Body Mass Index 28.06 10/25/2018 12:22 PM COLD MEAT COOK Procedures * XR KNEE BILAT 3VW(Performed 10/25/2018) Performed for Pain in both knees, unspecified chronicity * C-REACTIVE PROTEIN(Performed 04/25/2016) Performed for Pre-op testing * ERYTHROCYTE SEDIMENTATION RATE(Performed 04/25/2016) Performed for Pre-op testing Results * XR KNEE BILAT 3VW (10/25/2018 12:16 PM COLD MEAT COOK) Anatomical Region Laterality Modality Lower Extremity Computed Radiogr aphy Narrative 11/12/2018 6:27 PM COLD MEAT COOK Suzanne Capone ? 11/12/2018 ??6:27 PM Please see progress notes for result. Carlos Manuel [place] MD DIAGNOSTIC IMAGING O RDERABLES * C-REACTIVE PROTEIN (04/25/2016 12:28 PM CDT) C-Reactive Protein <0.29 <0.30 mg/dL 04/25/2016 12:59 PM CDT [facility] Blood BLOOD SPECIMEN / Unknown Lab Venipuncture / Unknown 04/25/2016 12:28 PM CDT 04/25/2016 12:28 PM CDT Madhav Frank MD LAB - CHEMISTRY JOSE PRUITT [facility] [address] [place] [address] * SED RATE WESTERGREN (04/25/2016 12:28 PM CDT) Erythrocyte Sedimentation Rate [facility] 6 0 - 20 mm/hr 04/25/2016 12:57 PM CDT [facility] Blood BLOOD SPECIMEN / Unknown Lab Venipuncture / Unknown 04/25/2016 12:28 PM CDT 04/25/2016 12:28 PM CDT Madhav Frank MD LAB - HEMATOLOGY ORD ERABLES [facility] [address] [place] [address] Care Teams Tire Builder Heavy Service Relationship Specialty Start Date End Date Rl Medina MD [address] [place] [phone] PCP - General Family Medicine 04/25/16
--- OUTSIDE RECORDS SUMMARY | 2024-11-05 19:11 | XMS_ITS | Encounter Summary ---
Author Organization [facility] Address [address] [facility] [place] [address] Care Team Providers Care Ice Platform Supervisor Name Role Phone Rl Medina MD Primary Care Provider [phone] Encounter Details Date Type Department Care Team (Latest Contact Info) Description 04/25/2016 11:55 AM CDT - 04/25/2016 11:59 PM CDT Hospital Encounter [facility] [address] [place] [address] Madhav Frank MD [address] [facility] [address] [place] [phone] Discharge Disposition: Home or Self Care Social History Tobacco Use Types Packs/Day Years Used Date Smoking Tobacco: Never Assessed Sex and Gender Information Value Date Recorded Sex Assigned at Not on file Gender Identity Not on file Sexual Orientation Not on file documented as of this encounter Plan of Treatment Not on file documented as of this encounter Procedures Procedure Name Priority Date/Time Associated Diagnosis Comments C-REACTIVE PROTEIN Routine 04/25/2016 12 :28 PM CDT Pre-op testing ERYTHROCYTE SEDIMENTATION RATE Routine 04/25/2016 12:28 PM CDT Pre-op testing documented in this encounter Results * C-REACTIVE PROTEIN (04/25/2016 12:28 PM CDT) C-Reactive Protein <0.29 <0.30 mg/dL 04/25/2016 12:59 PM CDT [facility] Blood BLOOD SPECIMEN / Unknown Lab Venipuncture / Unknown 04/25/2016 12:28 PM CDT 04/25/2016 12:28 PM CDT Madhav Frank MD LAB - CHEMISTRY ORDE RABFLOR Performing Organization Address City/[facility]/ZIP Co de Phone Number [facility] [address] [phone] * SED RATE WESTERGREN (04/25/2016 12:28 PM CDT) Erythrocyte Sedimentation Rate Westergren 6 0 - 20 mm/hr 04/25/2016 12:57 PM CDT [facility] Blood BLOOD SPECIMEN / Unknown Lab Venipuncture / Unknown 04/25/2016 12:28 PM CDT 04/25/2016 12:28 PM CDT Madhav Frank MD LAB - HEMATOLOGY ORD ERABLES Performing Organization Address City/[facility]/ZIP Co de Phone Number [facility] [address] [place] [place] [phone] documented in this encounter Visit Diagnoses Diagnosis Pre-op testing- Primary Preoperative examination, unspecified documented in this encounter Care Teams Ice Platform Supervisor Relationship Specialty Start Date End Date Rl Medina MD [address] [place] [phone] PCP - General Family Medicine 04/25/16 documented as of this encounter
--- OUTSIDE RECORDS SUMMARY | 2024-11-05 19:11 | XMS_ITS | Encounter Summary ---
Author Organization [facility] Address [address] [facility] [address] [place] [address] Care Team Providers Care Cabinet Installer Name Role Phone Unavailable Primary Care Provider Unavailabl e Encounter Details Date Type Department Care Team (Late st Contact Info) Description 01/31/[address] 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
--- OUTSIDE RECORDS SUMMARY | 2024-11-05 19:11 | XMS_ITS | Encounter Summary ---
Author Organization [facility] Address [address] 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
--- OUTSIDE RECORDS SUMMARY | 2024-11-05 19:11 | XMS_ITS | Referral Summary ---
Author Organization [facility] [facility] Address [address] [place] [address] Care Team Providers Care Office Cashier Name Role Phone Rl Medina MD Primary Care Provider [phone] Source Comments [facility] [employer] [facility],non-owned Affiliates and Associated Physician Practices is amultiple site organization consisting of ambulatory clinics and hospital sitesin [place], [place]. This disclosure is being madepursuant to the Care Everywhere program and may not contain all information available regarding this patient. Last updated 18.[facility] [employer] [facility] Allergies No known active allergies Medications * [...] 86.2 kg (190 lb) 10/25/2018 12:22 PM WATERMELON INSPECTOR Height 175.3 cm (5' 9 ) 10/25/2018 12:22 PM WATERMELON INSPECTOR Body Mass Index 28.06 10/25/2018 12:22 PM WATERMELON INSPECTOR Plan of Treatment Not on file Care Teams Office Cashier Relationship Specialty Start Date End Date Rl Medina MD [address] [place] [phone] PCP - General Family Medicine 04/25/16
--- OUTSIDE RECORDS SUMMARY | 2024-11-05 19:11 | XMS_ITS | Encounter Summary ---
Author Organization [facility] Address [address] [facility] [place] [address] [place] [address] Care Team Providers Care Maintenance Job Titles Name Role Phone SudeepRl campos Primary Care Provider [phone] Fransisco Heard MD Unavailable [phone] Encounter Details Date Type Department Care Team (Late st Contact Info) Description 10/09/2019 9:30 AM FILTRATION SUPERVISOR Home Care Visit [facility] Home Care [facility] [address] [place] [address] Lisa Lewis, PT PT HOME VISIT Social History Tobacco Use Types Packs/Day Years Used Date Smoking Tobacco: Never Assessed Sex and Gender Information Value Date Recorded Sex Assigned at Not on file Legal Sex Male 11:34 PM FILTRATION SUPERVISOR Gender Identity Not on file Sexual Orientation Not on file documented as of this encounter Last Filed Vital Signs Vital Sign Reading Time Taken Comments Blood Pressure 136/74 10/09/2019 12:00 AM FILTRATION SUPERVISOR Pulse 62 10/09/2019 12:00 AM FILTRATION SUPERVISOR Temperature 36.7 ??C (98 ??F) 10/09/2019 12:00 AM FILTRATION SUPERVISOR Respiratory Rate 18 10/09/2019 12:00 AM FILTRATION SUPERVISOR Oxygen Saturation - - Inhaled Oxygen Concentration [...] discharge. Problem:Discharge Planning Goal:Progress towards discharge Completed reviewed plan of care for P.T. including frequency and duration ( likely will continue through 10/16 [facility] pt aware and agreeable Plan for Next Visit Description: Next visit plan summation Problem:A Plan for Next Visit Goal:Provide Continuity of Care Completed pt aware of next planned visit tomorrow: will plan to ensure patient able to complete return demosntration of ther ex in supine, sit and standing; will continue pedalling activity, and add further proprioceptive exercises to improve normal gait pattern; will complete gait training next visit Review Medications Description: Review medications each visit and update patient's copy of medication list as needed. Ensure patient has an updated medication list and understands the need to keep list updated. Problem:Therapies Medications Goal:Therapies - Understanding of Medications - Physical Therapy Completed Pt verbalized good understanding of all of his medications and there has not been any changes or additions Instruct Home Safety Description: Instruct patient on strategies/modificatio ns to home environment. Problem:Home Safety Goal:Remain Safe in Home Completed Educated pt on using good supportive shoe wear to improve gait pattern and he verbalized understanding. He declines the use of any assistive device PT gait training Description: Evaluate and instruct patient in gait training using straight cane with transition to no device as soon as appropriate Problem:PT Gait Training Goal:PT Gait Training Completed Pt educated in improved arm swing and increased knee flexion at heel off phase of gait pattern to improve normalization of gait. Pt ambulated at least 225 feet with good balance without device, mostly on tile and hard wood. 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 Pt completed good return demonstration of supine and seated ther ex for 15 reps each. Pt tolerated approx. 50 revlolutions on a small pedaller ( bike) wtihout resistance. Pt achieved 99 degrees of flexion today sitting Therapies ROM Description: Assess ROM and instruct in techniques to improve through ther ex, and functional activities Problem:PT Evaluation Goal:PT Evaulation Completed Pt completed active range of motion in supine, sitting and standing positions and also while using a pedaller. Pt achieved 99 degrees of flexion and 0 degrees of extension in heel prop position. Actively pt able to achieve -6 degrees extension (quadriceps lag) during short or long arc quads documented in this encounter Care Teams Maintenance Job Titles Relationship Specialty Start Date End Date Rl Medina DO [address] [place] [address] PCP - General FAMILY PRACTICE 10/01/19 Fransisco Heard MD [address] [place] [address] SURGERY 10/01/19 documented as of this encounter
--- OUTSIDE RECORDS SUMMARY | 2024-11-05 19:11 | XMS_ITS | Encounter Summary ---
Author Organization [facility] Address [address] [place] [address] [place] [address] Care Team Providers Care Ceo Ziff Davis Name Role Phone SudeepRl campos Primary Care Provider [phone] Fransisco Heard MD Unavailable [phone] Encounter Details Date Type Department Care Team (Late st Contact Info) Description 10/10/2019 9:30 AM SOFTWARE MANAGER Home Care Visit [facility] Home Care [facility] [address] [place] [address] Lisa Lewis, PT PT HOME VISIT Social History Tobacco Use Types Packs/Day Years Used Date Smoking Tobacco: Never Assessed Sex and Gender Information Value Date Recorded Sex Assigned at Not on file Legal Sex Male 11:34 PM SOFTWARE MANAGER Gender Identity Not on file Sexual Orientation Not on file documented as of this encounter Last Filed Vital Signs Vital Sign Reading Time Taken Comments Blood Pressure 138/74 10/10/2019 12:00 AM SOFTWARE MANAGER Pulse 67 10/10/2019 12:00 AM SOFTWARE MANAGER Temperature 36.6 ??C (97.8 ??F) 10/10/2019 12:[address] Respiratory Rate 18 10/10/2019 12:00 AM SOFTWARE MANAGER Oxygen Saturation - - Inhaled Oxygen Concentration [...] criteria through 10/18/19 Discharge Planning Progressing No Discussed discharge with plans to transition to outpatient services at provider of patients choice ( [facility] outpatient facility) Provide Continuity of Care Description: To provide continuity of care for P.T. through 10/18 A Plan for Next Visit Progressing No Discussed P.T. plan of care ( to be seen , Wed and Sunday next week and times are scheduled with the patient) Therapies - Understanding of Medications - Physical Therapy Description: Patient will verbalize understanding of medication regimen by 10/07/19 Therapies Medications Progressing No Remain Safe in Home Description: Patient will remain safe in their home as evidenced by no falls or injuries, through 10/18/19 Home Safety Progressing No Pt has not had any falls PT Gait Training Description: Pt will improve [...] by 10/18/19 PT Gait Training Progressing No Pts gait pattern continues to demosntrate decreased lateral sway, and improved heel to toe pattern Goal will not be marked as met until gait pattern 100% consistent, expected within the next 1-2 visits Physical Therapy - Establish or Upgrade Home Program Description: Pt will demonstrate compliance/understandi ng of home exercise program including supine/prone/sitting/s tanding ther ex to improve functional strength and range of motion of right knee to allow return to normal activity with normalized functional scores: TUG score of 12 seconds or less, and improved Tinnetti score to at least 26/28 Therapies Establish or Upgrade Home Program Progressing No Pt able to complete the TUG in 16 seconds today PT Evaulation Description: Patient will demonstrate improved [...] for stair ambulation PT Evaluation Progressing No Pt has met this goal today: Updated goal as of 10/10: Pt will achieved 0 degrees to 113 degrees passively and will be able to actively extend the right knee without any extension lag by 10/18/19 Interventions Intervention Associated Problem/Goal Status Variance Visit Notes Plan Towards Discharge Description: Document patient progress towards discharge. Problem:Discharge Planning Goal:Progress towards discharge Completed Discussed plans for outpatient PT at discharge from [facility]. Plan final visit this next Sunday the . Pt is aware and agreeable Plan for Next Visit Description: Next visit plan summation Problem:A Plan for Next Visit Goal:Provide Continuity of Care Completed plan to see patient on Radha morning at 8 am for continued progression of ther ex with stretching activity, use of pedaler ( bicyle), quadriceps strengthening ( add use of light resistance band for strengthening . Review Medications Description: Review medications each visit and update patient's copy of medication list as needed. Ensure patient has an updated medication list and understands the need to keep list updated. Problem:Therapies Medications Goal:Therapies - Understanding of Medications - Physical Therapy Completed Pt denies any changes and or additions to his medications at this time. He is using tylenol for pain control Instruct Home Safety Description: Instruct patient on strategies/modificatio ns to home environment. 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 He completed supine 90/90 hip/knee stretch, straight leg raises, quad sets in heel prop position, short arc quads with some gentle manual resistance provided. Pt achieved 0-105 degrees right knee ROM Pt performed good return demonstration of supine and standing ther ex Therapies ROM Description: Assess ROM and instruct in techniques to improve through ther ex, and functional activities Problem:PT Evaluation Goal:PT Evaulation Completed Achieve right knee PROM 0 degrees 105 degrees ( extension measured supine in heel prop and flexion measured in sitting ); Actively -5 degrees extension lag noted. Pt completed use of bicycle ( at least 125 revolutions with some light resistance during the last 35 revolutions. Pt completed hip/knee 90/90 stretch in supine, heel slides, hamstring curls and sit and scoot stretch. Pt tolerates ther ex well. documented in this encounter Care Teams Ceo Ziff Davis Relationship Specialty Start Date End Date Rl Medina DO [address] [place] [address] PCP - General FAMILY PRACTICE 10/01/19 Fransisco Heard MD [facility] [place] [address] SURGERY 10/01/19 documented as of this encounter
--- OUTSIDE RECORDS SUMMARY | 2024-11-05 19:15 | XMS_ITS ---
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 Now presenting with subacute, progressive LE edema now involving his abdomen and scrotum with 11/23 LE Duplex with extensive DVTs bilaterally. He is directly admitted here for vascular surgery and hematology evaluation. - Arrived here HD stable with warm extremities and brisk distal pulses. - LE duplex here with extensive bilateral DVTs from groin on down - Vascular Surgery c/s: no plan for operative management, continue anticoagulation, OT lymphedema consult for BLE edema - Hematology consult: transition to lovenox BID, would avoid DOAC in this patient - Scrotal sling for support, q4 neurochecks, neurovascular checks - continue Lovenox 1mg/kg BID, anti factor-Xa level 0.68 which is appropriate - Patient and counseled on warning symptoms for bleeding; currently hgb stable - Transfused 1 unit PRBCs (12/02) w/ appropriate rise - Monitor CBC on anticoagulation - for BLE edema, as Cr between 0.8-1.0 and electrolytes not requiring repletion, will continue lasix 40 IV BID Anemia 11/29/2023 Assessment & Plan (11/29/2023 7:17 PM LACE MENDER): - Stable Hgb ~8 - Maintain Hgb > 7 Paraspinal hematoma 11/29/2023 Assessment & Plan (12/01/2023 12:39 PM LACE MENDER): - Occurred on therapeutic anticoagulation in setting of recent lumbar decompression, with subsequent LE paralysis and emergent hematoma evacuation on 11/07 - Directly-admitted from [facility] - PT/OT - Orthopedics following - had sutures removed on 11/30 - note had some drainage from sutures, plan 7-10d course SSTI antibiotics using Bactrim for now - anticoagulation as elsewhere (see DVT ) Hyponatremia 11/29/2023 Assessment & Plan (12/07/2023 11:50 AM LACE MENDER): Improved. Na low 130s over the past week, has improved with improved oral intake and remains in normal range with initiation of diuretic therapy. - CTM on lasix Elevated transaminase level 11/29/2023 Assessment & Plan (12/04/2023 11:59 AM LACE MENDER): - AST 65, ALT 80, new on arrival- Unclear etiology at this time - possibly from IVC compression/distention in setting of potential thrombi? - Improving - will hold off on further imaging Lower extremity edema 11/29/2023 Assessment & Plan (12/01/2023 12:38 PM LACE MENDER): - Eval/mgt per above. NT-proBNP 105. Scrotal swelling 11/29/2023 Assessment & Plan (12/10/2023 2:44 PM LACE MENDER): - In setting of presumed DVT - no evidence of infection on exam - Scrotal Sling - Maintain sofia catheter - DVT mgt per above - for edema, will continue IV lasix 40 mg BID, monitor electrolytes - at discharge will discharge on PO lasix 40 mg BID Seizure 11/29/2023 Assessment & Plan (11/29/2023 7:16 PM LACE MENDER): - Patient developed reported seizure on 10/23 during or prior to cardiac arrest with bilateral SDH noted on imaging - placed on keppra through follow-up with NSGY next month Prediabetes 11/29/2023 Assessment & Plan (11/29/2023 7:22 PM LACE MENDER): - Was on mounjaro as outpatient - has required intermittent SSI at [facility] - Diabetic diet, SSI ordered Kidney stone 11/09/2023 Paraplegia 11/07/2023 Assessment & Plan (11/29/2023 7:15 PM LACE MENDER): - Patient with paralysis of LE following recent spinal hematoma s/p emergent evacuation on 11/07 - Ongoing 11/09 strength of LE, sensation intact - Fall precautions Pulmonary embolism 10/26/2023 Assessment & Plan (11/29/2023 7:16 PM LACE MENDER): - Eval/mgt per above Assessment & Plan (10/26/2023 5:11 PM LACE MENDER): Patient with new PE on CT PE 10/23. Tolerating heparin gtt. Likely provoked in setting of recent surgery. - Patient will need at least 3 months of anticoagulation, and can follow up with PCP for consideration of discontinuation - If no other surgical interventions planned at this time, can transition to therapeutic Lovenox vs Eliquis per primary team. S/P spinal fusion 10/23/2023 Cardiac arrest 10/23/2023 Left perinephric collection, 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 10/15/2023 Assessment & Plan (10/20/2023 2:57 PM LACE MENDER): Likely post procedure complication. Urology following - CT urogram on 10/16 notes presence of L perinephric hematoma - Continue to trend white count, renal function and fever curve Ureteral colic 10/13/2023 UTI (urinary tract infection) 10/13/2023 Assessment & Plan (12/10/2023 2:43 PM LACE MENDER): - Patient diagnosed with UTI in setting of sofia catheter on 11/21 with growth of Enterobacter cloacae (S - bactrim, macrobid, cefepime) - he denies symptoms, though was noted to have leukocytosis that has improved - s/p treatment course of bactrim - discussion with urology regarding sofia catheter exchange, recommend continuing existing catheter until 12/25/23 appointment with urology. Assessment & Plan (10/20/2023 2:58 PM LACE MENDER): - Complicated UTI with the presence of left ureteral stone and Pyelitis - urine culture grew E-coli which is pansusceptible. - Discussion with urology and orthopedic surgery: continue Keflex 500 mg q6hr as it appears patient will stay in-house until OR on 10/22-10/23 -Antibiotics as above. Hydronephrosis with urinary obstruction due to renal calculus 10/12/2023 Assessment & Plan (12/07/2023 1:48 PM LACE MENDER): - Patient with noted progressed hydronephrosis during CT this month in setting of ureteral stones - No urinary retention or abd/back pain at this time - urology consulted: no intervention while inpatient. S/p treatment of UTI, sofia can be continued for ~4wk from placement and would be OK with continuing through 12/25 ureteroscopy appt. With this on schedule, patient does not need to follow-up with Dr. Irene on 12/13 (appears to be holdover from prior). - repeat UA w/ reflex from 11/30 without evidence of clinically significant infection - has been on Macrobid, stopped in favor of Bactrim to also cover SSTI of back Assessment & Plan (10/19/2023 12:54 PM LACE MENDER): Presented with generalized weakness with fever and chills with CT evidence of left ureteral stone with hydro s/o cystoscopy. . Retrograde contrast during cystoscopy revealed a tortuous left ureter and contrast which did not fill past the mid ureter at the site of likely impacted left ureteral stone, thus Stent was not placed. Procedure was aborted and 16 F sofia placed in bladder to drainage. Also IR guided Ureteral stent placement was attempted, however no calyceal dilation was noted contrast washing down the ureter. 10/14 he underwent successful Ir guided PCN tube placement. -ceftriaxone --> cephalexin 500 mg q6hr (10/19-) -received loading dose of gentamicin on 10/13 -Continue sofia catheter for decompression (replaced on 10/18) -zofran for nausea -Urology following -f/u urine culture growing 2 E. Coli spp. Both butts sensitive -f/u left kidney aspirate c/s -Flush the catheter 10 ml of NS every 8 hours to prevent clogging the tube given hemorrhagic output. -CT urogram with perinephric hematoma similar to ultrasound. L ureteral stones remain present -Will need to follow up with IR in 6-8 weeks for catheter exchange or internalization or possible removal if no definitive surgical plan is made in the interim. -s/p cystoscopy 10/18 with lithotripsy. Urology following: recommend continued antibiotics through time of spine surgery though OK to de-escalate to oral regimen Lumbar radiculopathy 10/08/2023 Assessment & Plan (10/20/2023 2:57 PM LACE MENDER): He has been planned for plan for an open L4-L5 posterior spinal fusion with instrumentation, TLIF from the left side, laminectomy, with autograft, allograft by Orthopedic surgery - MRI today showed Redemonstrated degenerative disc disease of the lumbar spine notable for a left lateral disc bulge and superimposed protrusion at L4-L5 resulting in moderate right and severe left lateral recess stenosis, similar to prior. Additionally there is continued severe neuroforaminal stenosis on the right at L5-S1. There is no high-grade spinal canal or neuroforaminal stenosis involving the cervical and thoracic spine. Per ortho, Hold DVT prophylaxis - discussed with ortho, they prefer holding DVT chemoprophylaxis days prior to surgery. OK for SCDs Neurochecks every 4 hours Surgery rescheduled to 10/23/23 Gross hematuria 10/18/2022 Overview (10/18/2022): Added automatically from request for surgery [id number] Bladder neck obstruction 10/17/2022 Lesion of urinary bladder 10/17/2022 Prostate cancer 10/17/2022 Assessment & Plan (11/29/2023 7:14 PM LACE MENDER): - s/p prostatectomy Assessment & Plan (10/13/2023 5:39 AM LACE MENDER): S/p postprostatectomy HTN (hypertension) 10/10/2021 Assessment & Plan (11/29/2023 7:14 PM LACE MENDER): - Cont diltiazem - home ARB has been on hold at [facility] - continue to hold here initially Assessment & Plan (10/15/2023 9:11 AM LACE MENDER): Hold home irbesartan Restart diltiazem xl Risk factors for obstructive sleep apnea 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 Past Plans No past plan information found. Radiation Treatments * No radiation treatments are documented for this patient in [facility]. Treatments may have been administered in another system. Lifetime Dose Tracking * Chemical Lifetime Dose Automatic Entry Manual Entr y Fluoro Time 71.903 minutes 71.903 minutes 0 minutes Air kerma at the reference point (Ka,r) 2,101.35 mGy 2 ,101.35 mGy 0 mGy DLP 14,575 mGycm 14,575 mGycm 0 mGycm
--- OUTSIDE RECORDS SUMMARY | 2024-11-05 19:15 | XMS_ITS | Encounter Summary ---
Author Organization [facility] Address [address] [place] [address] Care Team Providers Care Engineering Mgr Name Role Phone No, Physician Primary Care Provider [phone] Reason for Referral * MRI/CAT/PET Scan (Routine) - Closed Specialty Diagnoses / Procedures Referred By Contac t Referred To Contact Radiology Diagnoses Bilateral lower extremity edema Procedures CT Abdomen Pelvis W Contrast Milan Crum MD [address] [place] [address] Phone: tel: fax: [address] [phone] Referral ID Status Reason Start Date Expiration Date Visits Re quested Visits Authorized [id number] Closed 09/15/2024 10/15/2025 1 1 MENT EXAMINER Reason for Visit * MRI/CAT/PET Scan (Routine) - Closed Specialty Diagnoses / Procedures Referred By Contac t Referred To Contact Radiology Diagnoses Bilateral lower extremity edema Procedures CT Abdomen Pelvis W Contrast Milan Crum MD [address] [address] Phone: tel: fax: [address] [phone] Referral ID Status Reason Start Date Expiration Date Visits Re quested Visits Authorized [id number] Closed 09/15/2024 10/15/2025 1 1 Encounter Details Date Type Department Care Team (Late st Contact Info) Description 09/29/2024 3:40 PM DOCUMENT EXAMINER - 09/29/2024 11:59 PM DOCUMENT EXAMINER Hospital Encounter [facility] [address] [place] [address] Milan Crum MD [address] [facility] [address] [place] [address] Bilateral lower extremity edema Discharge Disposition: Discharge to home or self care Social History Tobacco Use Types Packs/Day Years Used Date Smoking Tobacco: Former Cigarettes 1 11 9 1979 Passive Smoke Exposure: Never Smokeless Tobacco: Never Alcohol Use Standard Drinks/Week Comments Yes 14 (1 standard drink = 0.6 oz pu re alcohol) social [facility] Utilities Answer Date Recorded In the past 12 months has [employer], gas, oil, or water company threatened to shut off services in your home? No 12/27/2023 Social Connection and Isolat ion Panel [NHANES] Answer Date Recorded In a typical week, how many times do you talk on the phone with family, friends, or neighbors? More than three times a week 12/27/2023 How often do you get togethe r with friends or relatives? More than three times a week 12/27/2023 How often do you attend chur ch or catholic services? Never 12/27/2023 Do you belong to any clubs o r organizations such as mormon groups, unions, fraternal or athletic groups, or school groups? No 12/27/2023 How often do you attend meet ings of the clubs or organizations you belong to? Never 12/27/2023 Are you , , di vorced, , never , or living with a partner? 12/27/2023 AUDIT-C Answer Date Recorded Q1: How often do you have a drink containing alcohol? 4 or more times a week 08/04/2024 Q2: How many drinks containi ng alcohol do you have on a typical day when you are drinking? Patient does not drink Q3: How often do you have si x or more drinks on one occasion? Never 08/04/2024 Overall Financial Resource Strain (CARDIA) Answe r Date Recorded How hard is it for you to pa y for the very basics like food, housing, medical care, and heating? Not hard at all 12/27/2023 PHQ-2 Answer Date Recorded PHQ-2 Total Score 0 12/27/2023 Hunger Vital Sign Answer Date Recorded Within the past 12 months, y ou worried that your food would run out before you got the money to buy more. Never true 12/27/19 24 Within the past 12 months, t he food you bought just didn't last and you didn't have money to get more. Never true 12/27/2023 PRAPARE - Transportation Answer Date Re corded In the past 12 months, has l ack of transportation kept you from medical appointments or from getting medications? No 12/07 In the past 12 months, has l ack of transportation kept you from meetings, work, or from getting things needed for daily living? No 12/27/2023 Housing Stability Vital Sign Answer Shalom e Recorded In the last 12 months, was t here a time when you were not able to pay the mortgage or rent on time? No 12/27/2023 In the last 12 months, how many places have you lived? 1 12/27/2023 In the last 12 months, was t here a time when you did not have a steady place to sleep or slept in a skilled nursing (including now)? No 12/27/2023 Personal Safety Answer Date Recorded Have you ever been in or are you currently in a harmful physical or emotional relationship or is someone making you feel afraid or unsafe? 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 [employer] Not on file Not on file Not on file documented as of this encounter Medications at Time of Discharge acetaminophen (TYLENOL) 500 mg tabletIndications:P ain Take 1 tablet (500 mg total) by mouth every 6 (six) hours as needed for pain 30 tablet acyclovir (ZOVIRAX) 400 mg tabletIndications:C hronic Suppression Take 1 tablet (400 mg total) by mouth 2 (two) times a day 4 aluminum-magnesium hydroxide-simethico ne (MAALOX) suspension 200-200-20 mg/5 mL Take 30 mL by mouth 2 (two) times a day as needed (mix with calprotect and apply to buttocks) ascorbic acid (VITAMIN C ORAL)Indications:hugo pplement Take 1 tablet by mouth 2 (two) times a day bisacodyL (DULCOLAX) 10 mg suppositoryIndicati ons:constipation Insert 1 suppository (10 mg total) into the rectum daily as needed for constipation 4 cetirizine (ZyrTEC) 10 mg tabletIndications:a llergeis Take 1 tablet (10 mg total) by mouth daily before breakfast 0 4 cholecalciferol (VITAMIN D-3) 5,000 unit capsuleIndications: Vitamin D Deficiency Take 1 capsule (5,000 Units total) by mouth every morning 4 ciprofloxacin (CIPRO) 500 mg tabletIndications:U rinary Tract/Genitourinary Infection Take 1 tablet (500 mg total) by mouth 2 (two) times a day cyclobenzaprine (FLEXERIL) 5 mg tablet Take 1 tablet (5 mg total) by mouth 3 (three) times a day as needed for muscle spasms 4 eszopiclone (LUNESTA) 1 mg tabletIndications:I nsomnia Take 1 tablet (1 mg total) by mouth nightly 4 furosemide (LASIX) 40 mg tablet Take 1 tablet (40 mg total) by mouth 2 (two) times a day 4 12/10/19 25 gabapentin (NEURONTIN) 600 mg tabletIndications:P ain Take 1 tablet (600 mg total) by mouth 3 (three) times a day 4 12/09/19 25 Lactobacillus acidophilus capsuleIndications: uti Take 1 tablet by mouth 2 (two) times a day menthol-zinc oxide 0.44-20.6 % ointment Apply 1 Application topically 2 (two) times a day as needed (apply to buttocks) metOLazone (ZAROXOLYN) 5 mg tablet Take 1 tablet (5 mg total) by mouth daily miconazole 2 % creamIndications:re dness, apply to groin Apply 1 Application topically 2 (two) times a day miconazole 2 % powder Apply topically 2 (two) times a day 4 Mounjaro 10 mg/0.5 mL pen injector 4 multivitamin tabletIndications:w ound healing Take 1 tablet by mouth gun striper before breakfast ondansetron ODT (ZOFRAN-ODT) 4 mg disintegrating tablet Take 1 tablet (4 mg total) by mouth every 8 (eight) hours as needed for vomiting or nausea [address] (PROTONIX) 40 mg EC tabletIndications:T reatment of Non-Bleeding Gastric Disorder Take 1 tablet (40 mg total) by mouth daily 4 12/10/19 25 potassium chloride ER 20 mEq CR tabletIndications:s upplement Take 1 tablet (20 mEq total) by mouth gun striper before breakfast 4 senna-docusate (PERICOLACE) 8.6-50 mg Take 1 tablet by mouth nightly 4 tamsulosin (FLOMAX) 0.4 mg extended release capsule Take 1 capsule (0.4 mg total) by mouth daily 30 capsule 11 4 02/27/20 25 Xarelto 20 mg tabletIndications:D VT Take 1 tablet (20 mg total) by mouth daily With a large meal 90 tablet 3 4 documented as of this encounter Discharge Disposition Disposition Code Departure Means Destination Discharge to home or self care documented in this encounter Plan of Treatment Not on file documented as of this encounter Procedures Procedure Name Priority Date/Time Associated Diagnosis Comments CT ABDOMEN PELVIS W CONTRAST Schedule Routine, Read Routine (OP Routine) 09/29/2024 4:48 PM DOCUMENT EXAMINER Bilateral lower extremity edema POCT CREATININE - DEVICE Routine 09/29/2024 4:27 PM DOCUMENT EXAMINER documented in this encounter Results * CT Abdomen Pelvis W Contrast (09/29/2024 4:48 PM DOCUMENT EXAMINER) Anatomical Region Laterality Modality Body N/A Computed Tomogra phy 09/30/2024 7:5 8 AM DOCUMENT EXAMINER Impressions 09/30/2024 7:58 AM DOCUMENT EXAMINER 1. ??Stents extending from the inferior vena cava into the bilateral external iliac veins, new since CT of 07/02/2024. ??Short segments of the stents within the common iliac veins are partially obscured by streak artifact. ??Within this limitation, no definite thrombus identified within the stents. 2. ??Urinary bladder decompressed by suprapubic catheter with unchanged wall thickening and new mild adjacent fat stranding, which may indicate cystitis. ??Correlation with urinalysis recommended. Electronically signed by: Yesica Bennett M.D. Narrative 09/30/2024 7:58 AM DOCUMENT EXAMINER EXAMINATION: ??Computed tomography of the abdomen and pelvis with intravenous contrast HISTORY: Bilateral lower extremity edema, evaluate patency of aortocaval stents TECHNIQUE: ??Transaxial computed tomographic images of the abdomen and pelvis were obtained with intravenous contrast according to IVC venogram protocol after the uneventful administration of 119 mL Opti-Ray 350 intravenous contrast. COMPARISON: CT dated 07/02/2024 FINDINGS: The lung bases are clear. ??No pleural effusion. ??The imaged heart is borderline enlarged, unchanged. ??No pericardial effusion. Unchanged hypoattenuating lesions throughout the liver, some representing cysts and some too small to characterize. ??The gallbladder, spleen, pancreas, and adrenal glands appear normal. The kidneys enhance symmetrically. ??Small cysts in both kidneys. Excreted contrast in the bilateral renal collecting systems and ureters. ??The urinary bladder is decompressed by a suprapubic catheter and appears thick-walled, unchanged. ??New mild fat stranding adjacent to the urinary bladder. ??The prostate is surgically absent. The stomach appears normal. ??The rectum is distended with stool; no evidence of stercoral proctitis. ??The appendix appears normal. No ascites or pneumoperitoneum. ??Normal caliber abdominal aorta. ??No lymphadenopathy in the abdomen and pelvis. ??Prominent subcentimeter bilateral iliac chain and inguinal lymph nodes are similar to prior study and likely reactive. Patent hepatic, portal, superior mesenteric, and splenic veins. Patent inferior vena cava. ??Stents extending from the inferior vena cava into the bilateral external iliac veins are new since the prior study. ??Within the common iliac veins, short segments of the stents are partially obscured by streak artifact despite metal artifact reduction attempt. ??Within this limitation, the stents appear patent; no definite thrombus identified within the stents. Unchanged small fat-containing left inguinal hernia. No suspicious osseous lesion. ??Unchanged spinal instrumentation at L4-L5. Procedure Note Yesica Bennett MD - 09/30/2024 EXAMINATION: Computed tomography of the abdomen and pelvis with intravenous contrast HISTORY: Bilateral lower extremity edema, evaluate patency of aortocaval stents TECHNIQUE: Transaxial computed tomographic images of the abdomen and pelvis were obtained with intravenous contrast according to IVC venogram protocol after the uneventful administration of 119 mL Opti-Ray 350 intravenous contrast. COMPARISON: CT dated 07/02/2024 FINDINGS: The lung bases are clear. No pleural effusion. The imaged heart is borderline enlarged, unchanged. No pericardial effusion. Unchanged hypoattenuating lesions throughout the liver, some representing cysts and some too small to characterize. The gallbladder, spleen, pancreas, and adrenal glands appear normal. The kidneys enhance symmetrically. Small cysts in both kidneys. Excreted contrast in the bilateral renal collecting systems and ureters. The urinary bladder is decompressed by a suprapubic catheter and appears thick-walled, unchanged. New mild fat stranding adjacent to the urinary bladder. The prostate is surgically absent. The stomach appears normal. The rectum is distended with stool; no evidence of stercoral proctitis. The appendix appears normal. No ascites or pneumoperitoneum. Normal caliber abdominal aorta. No lymphadenopathy in the abdomen and pelvis. Prominent subcentimeter bilateral iliac chain and inguinal lymph nodes are similar to prior study and likely reactive. Patent hepatic, portal, superior mesenteric, and splenic veins. Patent inferior vena cava. Stents extending from the inferior vena cava into the bilateral external iliac veins are new since the prior study. Within the common iliac veins, short segments of the stents are partially obscured by streak artifact despite metal artifact reduction attempt. Within this limitation, the stents appear patent; no definite thrombus identified within the stents. Unchanged small fat-containing left inguinal hernia. No suspicious osseous lesion. Unchanged spinal instrumentation at L4-L5. IMPRESSION: 1. Stents extending from the inferior vena cava into the bilateral external iliac veins, new since CT of 07/02/2024. Short segments of the stents within the common iliac veins are partially obscured by streak artifact. Within this limitation, no definite thrombus identified within the stents. 2. Urinary bladder decompressed by suprapubic catheter with unchanged wall thickening and new mild adjacent fat stranding, which may indicate cystitis. Correlation with urinalysis recommended. Electronically signed by: Yesica Bennett M.D. Milan Crum MD IMG CT PROCEDURES Final Re sult * POCT creatinine (09/29/2024 4:27 PM DOCUMENT EXAMINER) Creatinine POC 0.7 0.7 - 1.3 mg/dL Blood 09/29/2024 4:27 PM DOCUMENT EXAMINER 09/29/2024 4:27 PM DOCUMENT EXAMINER Milan Crum MD LAB POCT ORDERABLES - GILBERT CE Final Result [facility] Department [place] [address] documented in this encounter Visit Diagnoses Diagnosis Bilateral lower extremity edema documented in this encounter Administered Medications Inactive Administered Medications - up to 3 most recent administrations Medication Order MAR Action Action Date Dose Rate Site ioversoL (OPTIRAY 350) syringe 125 mL 125 mL, intravenous, Once in imaging, contrast, Starting on 09/29/24 at 1638, For 1 dose Contrast Given 09/29/2024 4:48 PM DOCUMENT EXAMINER 119 mL documented in this encounter Orders Medications Ordered That Armando ht Not Have Been Administered Count Last Ordered Date First Ordered Date ioversoL (OPTIRAY 350) syringe 125 mL 1 documented in this encounter Care Teams Engineering Mgr Relationship Specialty Start Date End Date No, Physician PCP - General 05/26/24 documented as of this encounter
--- OUTSIDE RECORDS SUMMARY | 2024-11-05 19:15 | XMS_ITS | Encounter Summary ---
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, initial encounter (HCC) Procedures Dexa Axial Skeleton Bone Density 1 or 2 Site Joleen Cantor MD [address] [place] [address] Phone: tel: fax: [address] [phone] Referral ID Status Reason Start Date Expiration Date V isits Requested Visits Authorized [id number] Authorized 10/22/2024 11/21/2025 1 1 PHYSICS ENGINEER Reason for Visit * Consultation (Routine) - Closed Specialty Diagnoses / Procedures Referred By Contact Referred To Contact Physical Medicine and Rehabilitation Diagnoses S/P laminectomy with spinal fusion Injury of thoracic spinal cord, subsequent encounter (HCC) Marcial Vu Jr., MD [address] [place] [address] Phone: tel:[phone] fax:[phone] [facility] (All Locations) Referral ID Status Reason Start Date Expiration Date V isits Requested Visits Authorized [id number] Closed Specialty Services Required 06/26/2024 07/26/2025 1 1 Encounter Details Date Type Department Care Team (Late st Contact Info) Description 10/22/2024 9:00 AM AEROPHYSICS ENGINEER Office Visit 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, initial encounter (HCC); Neurogenic bladder; Neurogenic bowel; Impaired mobility and ADLs Social History Tobacco Use Types Packs/Day Years Used Date Smoking Tobacco: Former Cigarettes 1 11 [id number] Passive Smoke Exposure: Never Smokeless Tobacco: Never Tobacco Cessation:Counseling Given: Not Answered Alcohol Use Standard Drinks/Week Comments Yes 14 (1 standard drink = 0.6 oz pu re alcohol) social C Utilities Answer Date Recorded In the past 12 months has e [employer], gas, oil, or water [employer] threatened to shut off services in your [...] often do you attend chur ch or mormonism services? Never 12/27/2023 Do you belong to any clubs o r organizations such as islam groups, unions, fraternal or athletic groups, or [...] place to sleep or slept in a detention (including now)? No 12/27/2023 Personal Safety Answer Date Recorded Have you ever been in or are you currently in a harmful physical or emotional relationship or is someone making you feel afraid or unsafe? 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 Not on file Not on file Not on file documented as of this encounter Last Filed Vital Signs Vital Sign Reading Time Taken Comments Blood Pressure 126/80 10/22/2024 8:54 AM AEROPHYSICS ENGINEER Pulse 67 10/22/2024 8:54 AM AEROPHYSICS ENGINEER Temperature - - Respiratory Rate - - Oxygen Saturation - - Inhaled Oxygen Concentration - - Weight 90.7 kg (200 lb) 10/22/2024 8:54 AM AEROPHYSICS ENGINEER Height - - Body Mass Index 30.41 09/23/2024 11:35 AM AEROPHYSICS ENGINEER documented in this encounter Progress Notes * Joleen Cantor MD - 10/22/2024 9:00 AM CST Patient Name: HIRA EVANS Medical Record Number (MRN): [id number] Date of (): 1950 Encounter Date: 10/22/2024 Chief Complaint Paraplegia HPI Hira Evans is a 74 y.o. male with Paraplegia / Cauda Equina Syndrome seen in spinal cord injury clinic to establish SCI related follow-up. He has a history of left L4-L5 radiculopathy with progressive weakness as result of L4-L5 herniated disc in the setting of the lumbar spinal stenosis and spondylosis. He is status post L4-L5 PSF with a decompressive laminectomy by Dr. Vu on October 23, 2023. Surgery was complicated by cardiac arrest immediately post surgery, he was found to have bilateral PE requiring therapeutic anticoagulation complicated by epidural hematoma 2 weeks postsurgery with development of thoracic level paraplegia. He is status post T6-L4 decompressive laminectomies with the thoracic and lumbar epidural hematoma evacuation and durotomy repair. He had history of IVC filter placement which was later removed and currently on lifelong anticoag coagulation on Xarelto. He had short course of inpatient rehabilitation at 3 sometime in December of 2023. Currently he is residing at assisted living facility in [place]. He reports no spasticity in bilateral lower extremities and no reports of pain. His neurogenic bladder managed with suprapubic catheter. He isfollowed by Urology with renal ultrasound in June of 2024 with no finding of hydronephrosis. Neurogenic bowel with daily bowel movement with the use of stool softeners. No concern for pressure wounds development at this point. No reports of autonomic dysreflexia. He participating in therapy session at his facility. Since his last surgery he made significant functional improvement. He is using power wheelchair for most of his mobility. This chair was purchased by patient and not covered by hisinsurance. Transfer continue with significant level of assistance. He required assistance for lower extremity dressing. He is referred to our clinic by Dr. Vu Past medical history significant for history of malignant melanoma 15 years ago, prostate cancer, osteoarthritis-he is status post bilateral total knee arthroplasty. He has a history of hypertension,PE and DVT-on lifelong anticoagulation. He has no known drug allergies Current Outpatient Medications on File Prior to Visit Medication Sig Dispense Refill acetaminophen (TYLENOL) 500 mg tablet Take 1 tablet (500 mg total) by mouth every 6 (six) hours as needed for pain (Patient taking differently: Take 1 tablet (500 mg total) by mouth every 6 (six) hours as needed for pain) 30 tablet 0 acyclovir (ZOVIRAX) 400 mg tablet Take 1 tablet (400 mg total) by mouth 2 (two) times a day aluminum-magnesium hydroxide-simethicone (MAALOX) suspension 200-200-20 mg/5 mL Take 30 mL by mouth2 (two) times a day as needed (mix with calprotect and apply to buttocks) ascorbic acid (VITAMIN C ORAL) Take 1 tablet by mouth 2 (two) times a day bisacodyL (DULCOLAX) 10 mg suppository Insert 1 suppository (10 mg total) into the rectum daily as needed for constipation cetirizine (ZyrTEC) 10 mg tablet Take 1 tablet (10 mg total) by mouth daily before breakfast 0 cholecalciferol (VITAMIN D-3) 5,000 unit capsule Take 1 capsule (5,000 Units total) by mouth every morning ciprofloxacin (CIPRO) 500 mg tablet Take 1 tablet (500 mg total) by mouth 2 (two) times a day cyclobenzaprine (FLEXERIL) 5 mg tablet Take 1 tablet (5 mg total) by mouth 3 (three) times a day asneeded for muscle spasms eszopiclone (LUNESTA) 1 mg tablet Take 1 tablet (1 mg total) by mouth nightly furosemide (LASIX) 40 mg tablet Take 1 tablet (40 mg total) by mouth 2 (two) times a day (Patient taking differently: Take 1 tablet (40 mg total) by mouth daily before breakfast) gabapentin (NEURONTIN) 600 mg tablet Take 1 tablet (600 mg total) by mouth 3 (three) times a day (Patient taking differently: Take 1 tablet (600 mg total) by mouth 3 (three) times a day as needed (pain)) Lactobacillus acidophilus capsule Take 1 tablet by mouth 2 (two) times a day menthol-zinc oxide 0.44-20.6 % ointment Apply 1 Application topically 2 (two) times a day as needed(apply to buttocks) metOLazone (ZAROXOLYN) 5 mg tablet Take 1 tablet (5 mg total) by mouth daily miconazole 2 % cream Apply 1 Application topically 2 (two) times a day miconazole 2 % powder Apply topically 2 (two) times a day (Patient taking differently: Apply 1 g (1Application total) topically 2 (two) times a day) Mounjaro 10 mg/0.5 mL pen injector multivitamin tablet Take 1 tablet by mouth credentialer before breakfast ondansetron ODT (ZOFRAN-ODT) 4 mg disintegrating tablet Take 1 tablet (4 mg total) by mouth every 8(eight) hours as needed for vomiting or nausea pantoprazole DR (PROTONIX) 40 mg EC tablet Take 1 tablet (40 mg total) by mouth daily (Patient taking differently: Take 1 tablet (40 mg total) by mouth every morning) potassium chloride ER 20 mEq CR tablet Take 1 tablet (20 mEq total) by mouth credentialer before breakfast senna-docusate (PERICOLACE) 8.6-50 mg Take 1 tablet by mouth nightly (Patient taking differently: Take 1 tablet by mouth credentialer before breakfast) tamsulosin (FLOMAX) 0.4 mg extended release capsule Take 1 capsule (0.4 mg total) by mouth daily (Patient taking differently: Take 1 capsule (0.4 mg total) by mouth 2 (two) times a day) 30 capsule 11 Xarelto 20 mg tablet Take 1 tablet (20 mg total) by mouth daily With a large meal 90 tablet 3 tamsulosin (FLOMAX) 0.4 mg extended release capsule Take 2 capsules (0.8 mg total) by mouth daily with dinner (Patient taking differently: Take 2 capsules (0.8 mg total) by mouth nightly 2 tablets) No current facility-administered medications on file prior to visit. No Known Allergies Past Medical History: Diagnosis Date Allergic rhinitis Arthritis OA Cancer (CMS/HCC) (HCC) prostate and melonomia Cardiac complication 10/23/2023 possible seizure in the PACU. Specifically, he developed right gaze deviation and bilateral tonic clonic movements. This was followed by a cardiac arrest requiring CPR. Cauda equina compression (HCC) DVT (deep venous thrombosis) (CMS/HCC) (HCC) GERD (gastroesophageal reflux disease) History of melanoma Hypertension Kidney stone Paraspinal hematoma 11/29/2023 Personal history of prostate cancer Pneumonia Pulmonary embolism (HCC) Seasonal allergies Past Surgical History: Procedure Laterality Date ABSCESS CATHETER INJECTION N/A 10/13/2024 CYSTOSCOPY 10/13/2023 pyelogram retrograde CYSTOSCOPY Left 10/18/2023 ureter stent, pyelogram retrograde CYSTOSTOMY W/ BLADDER BIOPSY 11/2022 FL UPPER GI AIR CONTRAST W KUB Left 09/21/2023 INJECTION FOR VENOGRAM Bilateral INSERT VENA CAVA FILTER N/A 11/09/2023 LUMBAR LAMINECTOMY 10/23/2023 with fusion L4-5 MELANOMA RESECTION Right 2005 flank NEPHROSTOMY CATHETER CHANGE LEFT Left 02/05/2024 PERCUTANEOUS NEPHROSTOMY PCN LEFT Left 10/14/2023 removed 10/18/2023 PERCUTANEOUS NEPHROSTOMY PCN LEFT Left 12/26/2023 PROSTATECTOMY 2009 REMOVE VENA CAVA FILTER N/A 06/19/2024 REPLACEMENT TOTAL KNEE Right 2013 REPLACEMENT TOTAL KNEE Left 10/17/2021 REVISION TOTAL KNEE ARTHROPLASTY Right 09/30/2019 THORACIC LAMINECTOMY 11/08/2023 T5-L5, and laminectomy posterior lumbar, repair dural tear VASECTOMY over 30 years ago Family History Problem Relation Age of Onset Heart disease Mother Lung disease Mother Alcohol abuse Father Cancer Father Heart disease Other Family history of cardiac disorder - (Added by TW Conv) Cancer Other Family history of malignant neoplasm - (Added by TW Conv) Anesthesia problems Neg Hx Social History Tobacco Use Smoking status: Former Current packs/day: 0.00 Average packs/day: 1 pack/day for 11.0 years (11.0 ttl pk-yrs) Types: Cigarettes Start date: 1968 Quit date: 1979 Years since quittin.0 Passive exposure: Never Smokeless tobacco: Never Substance and Sexual Activity Drug use: Yes Frequency: 2.0 times per week Types: Medical marijuana Sexual activity: Yes Partners: Female control/protection: Vasectomy Alcohol Use: Not At Risk (08/04/2024) AUDIT-C Frequency of Alcohol Consumption: 4 or more times a week Average Number of Drinks: Patient does not drink Frequency of Binge Drinking: Never Review of Systems No recent episodes of headache, chest pain, shortness of breath, or abdominal discomfort. No signs of autonomic dysreflexia. Appetite and mood are fair. All other review of systems are negative. Vital Signs BP 126/80 (BP Location: Right arm, Patient Position: Sitting) Pulse 67 Wt 90.7 kg (200 lb) BMI 30.41 kg/m?? Physical Exam General exam: unremarkable HEENT exam: normocephalic, atraumatic. Neck supple Breathing nonlabored Abdomen: soft, nontender, no distended Extremities with significant improvement in previously noted bilateral lower extremity edema Skin: integument intact with no rashes of pressure sores. Musculoskeletal exam revealed no gross joint deformity or muscle atrophy. Sitting alignment is within normal limits. Neurological Exam - motor strength 5/5 in bilateral upper extremities and 0/5 for all jones muscle inbilateral lower extremities. Sensory exam with a preserved but decreased light touch sensation in bilateral lower extremities. Tone is well controlled in bilateral lower extremities Assessment/Plan Diagnosis Plan 1. Immobility syndrome (paraplegic) Dexa Axial Skeleton Bone Density 1 or 2 Site 2. S/P laminectomy with spinal fusion Ambulatory referral to Physical Medicine Rehab 3. Injury of thoracic spinal cord, subsequent encounter ([facility]) Ambulatory referral to Physical Medicine Rehab Dexa Axial Skeleton Bone Density 1 or 2 Site 4. 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 Paraplegia ([facility]) 6. Neurogenic bladder 7. Neurogenic bowel 8. Impaired mobility and ADLs Plan Paraplegia with cauda equina syndrome - stable neurological deficit with the no motor function preservation but spared sensation Neurogenic bladder - management with suprapubic catheter, followed up by Urology with a renal ultrasound in June of 2024. Neurogenic bowel - doing well with a daily bowel routine Immobility syndrome with a high-risk for development of neurogenic osteopenia /osteoporosis - baseline bone density study ordered. He continue on vitamin D3 2000 units [id number] supplement. Last vitamin-D level 50 ng/ml in December of 2023 Functional impairment - we discussed possibility of referral to outpatient specialized spinal cord injury program to work on bed to chair transfer with possible future consideration to transition to manual wheelchair with the use of power assist. He will contact our office if new concern or issues should arrived or he decide to evaluate possibility of outpatient rehabilitation versus inpatient course prior to his next visit. Follow Up Appointment Return in about 29 weeks (around 05/13/2025). 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, initial encounter (HCC) Expected: 10/22/2024, Expires: 10/22/2025 documented as of this encounter Visit Diagnoses Diagnosis Paraplegia (HCC)- Primary Paraplegia S/P laminectomy with spinal fusion Arthrodesis status Injury of thoracic spinal cord, subsequent encounter (HCC) 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
--- OUTSIDE RECORDS SUMMARY | 2024-11-05 19:15 | XMS_ITS | Encounter Summary ---
Author Organization [facility] Healthcare Address [address] [place] [address] Care Team Providers Care Pharmacist Hospital Name Role Phone No, Physician Primary Care Provider [phone] Reason for Referral * Diagnostic Imaging (Routine) - Authorized Specialty Diagnoses / Procedures Referred By Contac t Referred To Contact Radiology Diagnoses Hydronephrosis with urinary obstruction due to renal calculus Procedures IR Change Catheter Bladder, Nazario Saleem PA [facility] [address] [address] Phone: tel: fax: [place] [phone] [place] [address] Referral ID Status Reason Start Date Expiration Date V isits Requested Visits Authorized [id number] Authorized 10/13/2024 11/12/2025 1 1 RICAL CONTROL MACHINE MACHINIST Reason for Visit * Diagnostic Imaging (Routine) - Closed Specialty Diagnoses / Procedures Referred By Contac t Referred To Contact Radiology Diagnoses Hydronephrosis with urinary obstruction due to renal calculus Procedures IR Inject Abscess Catheter IR Change Catheter BladderMarcela Pavan Kumar, MD [address] [address] Phone: tel: fax: [place] [phone] [place] [address] Referral ID Status Reason Start Date Expiration Date Visits Re quested Visits Authorized [id number] Closed 09/23/2024 10/23/2025 1 1 Encounter Details Date Type Department Care Team (Latest Contact Info) Description 10/13/2024 8:30 AM NUMERICAL CONTROL MACHINE MACHINIST - 10/13/2024 11:59 PM NUMERICAL CONTROL MACHINE MACHINIST Hospital Encounter [facility] Imaging [address] [address] Krista Aleman RN Despins, Jo Ann Torres, Kassy Locke, RT Anjana Gee RN Hydronephrosis with urinary obstruction due to renal calculus Discharge Disposition: Discharge to home or self care Social History Tobacco Use Types Packs/Day Years Used Date Smoking Tobacco: Former Cigarettes 1 09 05 [id number] Passive Smoke Exposure: Never Smokeless Tobacco: Never Alcohol Use Standard Drinks/Week Comments Yes 14 (1 standard drink = 0.6 oz pu re alcohol) social C Utilities Answer Date Recorded In the past 12 months has [employer], gas, oil, or water [employer] threatened to shut off services in your [...] 12/27/2023 How often do you attend chur or confucianist services? Never 12/27/2023 Do you belong to any clubs o r organizations such as zoroastrian groups, unions, fraternal or athletic groups, or [...] place to sleep or slept in a penitentiary (including now)? No 12/27/2023 Personal Safety Answer Date Recorded Have you ever been in or are you currently in a harmful physical or emotional relationship or is someone making you feel afraid or unsafe? 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 Not on file Not on file documented as of this encounter Last Filed Vital Signs Vital Sign Reading Time Taken Comments Blood Pressure 141/78 10/13/2024 8:38 AM NUMERICAL CONTROL MACHINE MACHINIST Pulse 70 10/13/2024 8:38 AM NUMERICAL CONTROL MACHINE MACHINIST Temperature 36.9 ??C (98.5 ??F) 10/13/2024 8:38 AM CS T Respiratory Rate 16 10/13/2024 8:38 AM NUMERICAL CONTROL MACHINE MACHINIST Oxygen Saturation 98% 10/13/2024 8:38 AM NUMERICAL CONTROL MACHINE MACHINIST Inhaled Oxygen Concentration - - Weight - - Height - - Body Mass Index - - documented in this encounter Discharge Instructions * Discharge Instructions* Nazario Peterson PA - 10/13/2024 9:15 AM NUMERICAL CONTROL MACHINE MACHINIST Interventional Radiology Outpatient Discharge Instructions/Note Diagnosis:bloody urine output Procedure:Drain evaluation Limitations: [] You received medication that may affect your judgement. Stay with a responsible person today. Do not drive, operate machinery, make any legal or important decisions, or drink alcohol until tomorrow. No smoking unless another adult is present. Other Diet: You may resume your previous diet. Medication: [x] Usual medications; check with your regular doctor for any questions. Do not take any new pain medicine, sleeping pills or sedatives unless approved by your doctor. [] Prescriptions given for: Procedure Site Care: [] teaching sheet given [x] You may shower today. [x] Change the dressing daily and if it becomes wet or dirty. [x] It is okay to remove the dressing and gently wash the area while in the shower. You may also cover the site with plastic while showering if you wish to clean the site separately with a washcloth and warm soapy water. [x] Do not submerge the catheter under water (no bathtubs, pools, etc.) Drainage Tube Care: [] Flush tube with 5 mL Normal Saline [] Flush tube with 10 mL Normal Saline [] Flush tube once a day [] Flush tube twice a day [] Do not flush the tube [] Other: [] Record drainage output every day. [] Your tube is capped. Uncap the tube after or if severe pain or fever develops. (Please see teaching sheet). [x] Call Interventional Radiology if there is leakage around the tube or the tube stops draining. To contact an Interventional Radiologist at [facility] call [phone] Sunday through Sunday from 7:30am-4:30pm. At all other times call [phone] and ask that the Interventional Radiologist be paged. To contact an Interventional Radiologist at [facility] call [phone] Sunday through Sunday from 7:30am-3:30pm. To contact an Interventional Radiologist RN at [facility] call [phone] Sunday through Sunday from 7:00 am-5:00 pm. To schedule an appointment with Interventional Radiology at [facility] call [phone] Sunday through Sunday from 7:30 am-4:00 pm. For after hours, follow the telephone recording prompts to reach the on-call Interventional Radiology physician. Special instructions: Please call Interventional Radiology for any procedure related questions or problems including: Extreme swelling or bruising at the site. Unusual drainage or bleeding from procedure site. Fever of 101.5 F for more than 24 hours. Severe procedure related pain. Follow up care: [] Return to Interventional Radiology on at Please come to: [] 3rd Floor [facility] [] 4th floor [facility] [] [facility] [] [facility] Please call [phone] if you need to schedule a follow up appointment. 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 No sign of infection Complications: None Estimated Blood Loss: None Specimens: None Condition: Stable Full report to follow. RICAL CONTROL MACHINE MACHINIST documented in this encounter Plan of Treatment Scheduled Orders Name Type Priority Associated Diagnoses Orde r Schedule IR Change Catheter Bladder, Simple Imaging Schedule Routine, Read Routine (OP Routine) Hydronephrosis with urinary obstruction due to renal calculus Expected: 10/13/2024, Expires: 10/13/2025 documented as of this encounter Procedures Procedure Name Priority Date/Time Associated Diagnosis Comments ABSCESS CATHETER INJECTION Schedule Routine, Read Routine (OP Routine) 10/13/2024 9:20 AM NUMERICAL CONTROL MACHINE MACHINIST Hydronephrosis with urinary obstruction due to renal calculus documented in this encounter Results * IR Inject Abscess Catheter (10/13/2024 9:20 AM NUMERICAL CONTROL MACHINE MACHINIST) Anatomical Region Laterality Modality Body N/A X-Ray Angiograph y 10/13/2024 11:3 7 AM NUMERICAL CONTROL MACHINE MACHINIST Impressions 10/13/2024 11:37 AM NUMERICAL CONTROL MACHINE MACHINIST Well-positioned suprapubic catheter. PLAN: Continue to monitor catheter output as well as the patient's clinical condition. ??Patient will be scheduled for exchange 6-8 weeks from time of initial placement. If questions arise, please contact us by calling [phone]. Electronically signed by: Nazario Peterson PA-C Narrative 10/13/2024 11:37 AM NUMERICAL CONTROL MACHINE MACHINIST EXAMINATION: SUPRAPUBIC CATHETER EVALUATION HISTORY: ??74-year-old male with neurogenic bladder underwent suprapubic catheter placement on 09/23/2024. ??Patient presents today with leakage from the drainage bag as well 3 day history of mild hematuria. PROVIDER PRESENCE: Nazario Peterson PA-C, was present from the beginning to the end of the procedure. ?? SEDATION: ??No sedation TECHNIQUE: Prior to beginning the procedure, [place] Protocol was used to confirm the patient's identity and planned procedure. Fluoroscopy time has been recorded in the electronic medical record. After obtaining a plate cutter image, the catheter was injected with dilute contrast and multiple fluoroscopic images obtained. ?? A sterile dressing was applied to the skin site. ??A drainage bag was connected to the suprapubic catheter. ESTIMATED BLOOD LOSS: None CONDITION: Stable DISCHARGED TO: ??Recovery and then to Home. FINDINGS: Images from the catheter injection through the suprapubic tube show appropriate position within the decompressed bladder. ??The catheter was draining slightly blood-tinged urine. ??No evidence of infection at the tube entry site. Procedure Note Nazario Peterson PA - 10/13/2024 EXAMINATION: SUPRAPUBIC CATHETER EVALUATION HISTORY: 74-year-old male with neurogenic bladder underwent suprapubic catheter placement on 09/23/2024. Patient presents today with leakage from the drainage bag as well 3 day history of mild hematuria. PROVIDER PRESENCE: Nazario Peterson PA-C, was present from the beginning to the end of the procedure. SEDATION: No sedation TECHNIQUE: Prior to beginning the procedure, [place] Protocol was used to confirm the patient's identity and planned procedure. Fluoroscopy time has been recorded in the electronic medical record. After obtaining a plate cutter image, the catheter was injected with dilute contrast and multiple fluoroscopic images obtained. A sterile dressing was applied to the skin site. A drainage bag was connected to the suprapubic catheter. ESTIMATED BLOOD LOSS: None CONDITION: Stable DISCHARGED TO: Recovery and then to Home. FINDINGS: Images from the catheter injection through the suprapubic tube show appropriate position within the decompressed bladder. The catheter was draining slightly blood-tinged urine. No evidence of infection at the tube entry site. IMPRESSION: Well-positioned suprapubic catheter. PLAN: Continue to monitor catheter output as well as the patient's clinical condition. Patient will be scheduled for exchange 6-8 weeks from time of initial placement. If questions arise, please contact us by calling [phone]. Electronically signed by: Nazario Peterson PA-C us Milan Crum MD IMG IR PROCEDURES Final Re sult documented in this encounter Visit Diagnoses Diagnosis Hydronephrosis with urinary obstruction due to renal calculus documented in this encounter Administered Medications Inactive Administered Medications - up to 3 most recent administrations Medication Order MAR Action Action Date Dose Rate Site iothalamate meglumine (CONRAY) 60 % injection 10 mL 10 mL, intra-catheter, Once in imaging, contrast, Starting on 10/13/24 at 0921, For 1 dose Contrast Given 10/13/2024 9:21 AM NUMERICAL CONTROL MACHINE MACHINIST 10 mL documented in this encounter Orders Medications Ordered That Armando ht Not Have Been Administered Count Last Ordered Date First Ordered Date iothalamate meglumine (CONRA Y) 60 % injection 10 mL 1 10/13/2024 Discharge Count Last Ordered Date First Orde red Date DISCHARGE PATIENT 1 10/13/2024 documented in this encounter Care Teams Pharmacist Hospital Relationship Specialty Start Date End Date No, Physician PCP - General 05/26/24 documented as of this encounter
--- OUTSIDE RECORDS SUMMARY | 2024-11-05 19:15 | XMS_ITS | Encounter Summary ---
Author Organization [facility] Healthcare Address [address] [place] [address] Care Team Providers Care Smash Fixer Name Role Phone No, Physician Primary Care Provider [phone] Encounter Details Date Type Department Care Team (Late st Contact Info) Description 10/10/2024 Telephone [facility] Imaging [address] [facility] [address] Leticia Donahue RN Social History Tobacco Use Types Packs/Day Years Used Date Smoking Tobacco: Former Cigarettes 1 11 969 - 1979 Passive Smoke Exposure: Never Smokeless Tobacco: Never Alcohol Use Standard Drinks/Week Comments Yes 14 (1 standard drink = 0.6 oz pu re alcohol) social C Utilities Answer Date Recorded In the past 12 months has [employer], gas, oil, or water [employer] threatened to shut off services in your [...] often do you attend chur ch or christian services? Never 12/27/2023 Do you belong to any clubs o r organizations such as voodoo groups, unions, fraternal or athletic groups, or [...] place to sleep or slept in a [place] facility (including now)? No 12/27/2023 Personal Safety Answer Date Recorded Have you ever been in or are you currently in a harmful physical or emotional relationship or is someone making you feel afraid or unsafe? 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 Not on file Not on file documented as of this encounter Miscellaneous Notes * Telephone Encounter - Leticia Donahue RN - 10/10/2024 10:40 AM STEAM TURBINE OPERATOR Confirmed with Carey at the [place] Preprocedure Phone Call Procedure Time Verified: Yes Arrival Time Verified: Yes Procedure Location Verified: Yes Medical History Reviewed: No NPO Status Reinforced: No Ride and Caregiver Arranged: No Patient Knows to Bring Current Medications: No Patient Knows to Bring CPAP: No Is Patient on Home Ventilator?: No Is Patient on Blood Thinners?: Yes (xarelto) M TURBINE OPERATOR documented in this encounter Plan of Treatment Not on file documented as of this encounter Visit Diagnoses Not on filedocumented in this encounter Care Teams Smash Fixer Relationship Specialty Start Date End Date No, Physician PCP - General 05/26/24 documented as of this encounter
--- OUTSIDE RECORDS SUMMARY | 2024-11-05 19:15 | XMS_ITS | Clinical Summary ---
Author Organization [facility] Address [address] [place] [id number] Care Team Providers Care Storage Receipt Poster Name Role Phone No, Physician Primary Care Provider [phone] Allergies No known active allergies Medications bisacodyL (DULCOLAX) 10 mg suppositoryIndica tions:constipatio n Insert 1 suppository (10 mg total) into the rectum daily as needed for constipation Active furosemide (LASIX) 40 mg tablet Take 1 tablet (40 mg total) by mouth 2 (two) times a day 024 2024 Active Additional Information Patient taking differently:40 mg oralDaily before breakfast, Indications: Edema, Informant: [facility], Reported on 10/22/2024 gabapentin (NEURONTIN) 600 mg tabletIndications :Pain Take 1 tablet (600 mg total) by mouth 3 (three) times a day 024 2024 Active Additional Information Patient taking differently:600 mg oral3 times daily PRN, pain, (No indications reported), Informant: [facility], Reported on 10/22/2024 miconazole 2 % powder Apply topically 2 (two) times a day Active Additional Information Patient taking differently: 1 Applicationtopical 2 times daily,Indications: apply to groin area, Informant: [facility], Reported on 10/22/[address] (PROTONIX) 40 mg EC tabletIndications :Treatment of Non-Bleeding Gastric Disorder Take 1 tablet (40 mg total) by mouth daily 2024 Active Additional Information Patient taking differently:40 mg oralEvery morning, Indications: Treatment of Non-Bleeding Gastric Disorder, acid reflux, Informant: [facility], Reported on 10/22/2024 senna-docusate (PERICOLACE) 8.6-50 mg Take 1 tablet by mouth nightly Active Additional Information Patient taking differently:1 tablet oralDaily (early AM), Indications: constipation, Informant: [facility], Reported on 10/22/2024 tamsulosin (FLOMAX) 0.4 mg extended release capsule Take 2 capsules (0.8 mg total) by mouth daily with dinner Active Additional Information Patient taking differently:0.8 mg oral Nightly, 2 tablets, Indications: benign prostatic hyperplasia with lower urinary tract sx, Informant: [facility], Reported on 12/12/2023 cyclobenzaprine (FLEXERIL) 5 mg tablet Take 1 tablet (5 mg total) by mouth 3 (three) times a day as needed for muscle spasms Active cholecalciferol (VITAMIN D-3) 5,000 unit capsuleIndication s:Vitamin D Deficiency Take 1 capsule (5,000 Units total) by mouth every morning Active acyclovir (ZOVIRAX) 400 mg tabletIndications :Chronic Suppression Take 1 tablet (400 mg total) by mouth 2 (two) times a day Active ascorbic acid (VITAMIN C ORAL)Indications: supplement Take 1 tablet by mouth 2 (two) times a day Active acetaminophen (TYLENOL) 500 mg tabletIndications :Pain Take 1 tablet (500 mg total) by mouth every 6 (six) hours as needed for pain 30 tablet Active Additional Information Patient taking differently:500 mg oral Every 6 hours PRN, pain,(No indications reported), Informant: [facility], Reported on 10/22/2024 multivitamin tabletIndications :wound healing Take 1 tablet by mouth film examiner before breakfast Active metOLazone (ZAROXOLYN) 5 mg tablet Take 1 tablet (5 mg total) by mouth daily Act jania potassium chloride ER 20 mEq CR tabletIndications :supplement Take 1 tablet (20 mEq total) by mouth film examiner before breakfast Active Mounjaro 10 mg/0.5 mL pen injector Active ondansetron ODT (ZOFRAN-ODT) 4 mg disintegrating tablet Take 1 tablet (4 mg total) by mouth every 8 (eight) hours as needed for vomiting or nausea Active tamsulosin (FLOMAX) 0.4 mg extended release capsule Take 1 capsule (0.4 mg total) by mouth daily 30 capsule 11 2024 Active Additional Information Patient taking differently:0.4 mg oral2 times daily, Indications: bladder spasm/stent pain, Informant: [facility], Reported on 10/22/2024 cetirizine (ZyrTEC) 10 mg tabletIndications :allergeis Take 1 tablet (10 mg total) by mouth daily before breakfast 0 Active eszopiclone (LUNESTA) 1 mg tabletIndications :Insomnia Take 1 tablet (1 mg total) by mouth nightly Active miconazole 2 % creamIndications: redness, apply to groin Apply 1 Application topically 2 (two) times a day Active menthol-zinc oxide 0.44-20.6 % ointment Apply 1 Application topically 2 (two) times a day as needed (apply to buttocks) Activ e aluminum-magnesiu m hydroxide-simethi cone (MAALOX) suspension 200-200-20 mg/5 mL Take 30 mL by mouth 2 (two) times a day as needed (mix with calprotect and apply to buttocks) Active Lactobacillus acidophilus capsuleIndication s:uti Take 1 tablet by mouth 2 (two) times a day Active ciprofloxacin (CIPRO) 500 mg tabletIndications :Urinary Tract/Genitourina ry Infection Take 1 tablet (500 mg total) by mouth 2 (two) times a day Active Xarelto 20 mg tabletIndications :DVT Take 1 tablet (20 mg total) by mouth daily With a large meal 90 tablet 3 Active Active Problems Problem Noted Date Diagnosed Date Neurogenic bladder 10/24/2024 Neurogenic bowel 10/24/2024 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 Impaired mobility and ADLs 10/24/2024 Nephrolithiasis 12/25/2023 DVT (deep venous thrombosis) ([facility]) Assessment & Plan (12/10/2023 2:44 PM BOSS DYER): Patient with complex history with cardiac arrest [...] 11/29/2023 Assessment & Plan (11/29/2023 7:17 PM BOSS DYER): - Stable Hgb ~8 - Maintain Hgb > 7 Paraspinal hematoma 11/29/2023 Assessment & Plan (12/01/2023 12:39 PM BOSS DYER): - Occurred on therapeutic anticoagulation in setting of recent lumbar decompression, with subsequent LE paralysis and emergent hematoma evacuation on 11/07 - Directly-admitted from [facility] - PT/OT - Orthopedics following - had sutures removed on 11/30 - note had some drainage from sutures, plan 7-10d course SSTI antibiotics using Bactrim for now - anticoagulation as elsewhere (see DVT ) Hyponatremia 11/29/2023 Assessment & Plan (12/07/2023 11:50 AM BOSS DYER): Improved. Na low 130s over the past week, has improved with improved oral intake and remains in normal range with initiation of diuretic therapy. - CTM on lasix Elevated transaminase level 11/29/2023 Assessment & Plan (12/04/2023 11:59 AM BOSS DYER): - AST 65, ALT 80, new on arrival- Unclear etiology at this time - possibly from IVC compression/distention in setting of potential thrombi? - Improving - will hold off on further imaging Lower extremity edema 11/29/2023 Assessment & Plan (12/01/2023 12:38 PM BOSS DYER): - Eval/mgt per above. NT-proBNP 105. Scrotal swelling 11/29/2023 Assessment & Plan (12/10/2023 2:44 PM BOSS DYER): - In setting of presumed DVT - no evidence of infection on exam - Scrotal Sling - Maintain sofia catheter - DVT mgt per above - for edema, will continue IV lasix 40 mg BID, monitor electrolytes - at discharge will discharge on PO lasix 40 mg BID Seizure 11/29/2023 Assessment & Plan (11/29/2023 7:16 PM BOSS DYER): - Patient developed reported seizure on 10/23 during or prior to cardiac arrest with bilateral SDH noted on imaging - placed on keppra through follow-up with NSGY next month Prediabetes 11/29/2023 Assessment & Plan (11/29/2023 7:22 PM BOSS DYER): - Was on mounjaro as outpatient - has required intermittent SSI at [facility] - Diabetic diet, SSI ordered Kidney stone 11/09/2023 Paraplegia 11/07/2023 Assessment & Plan (11/29/2023 7:15 PM BOSS DYER): - Patient with paralysis of LE following recent spinal hematoma s/p emergent evacuation on 11/07 - Ongoing 11/09 strength of LE, sensation intact - Fall precautions Pulmonary embolism 10/26/2023 Assessment & Plan (11/29/2023 7:16 PM BOSS DYER): - Eval/mgt per above Assessment & Plan (10/26/2023 5:11 PM BOSS DYER): Patient with new PE on CT PE [...] 10/15/2023 Assessment & Plan (10/20/2023 2:57 PM BOSS DYER): Likely post procedure complication. Urology following - CT urogram on 10/16 notes presence of L perinephric hematoma - Continue to trend white count, renal function and fever curve Ureteral colic 10/13/2023 UTI (urinary tract infection) 10/13/2023 Assessment & Plan (12/10/2023 2:43 PM BOSS DYER): - Patient diagnosed with UTI in setting [...] urology. Assessment & Plan (10/20/2023 2:58 PM BOSS DYER): - Complicated UTI with the presence of left ureteral stone and Pyelitis - urine culture grew E-coli which is pansusceptible. - Discussion with urology and orthopedic surgery: continue Keflex 500 mg q6hr as it appears patient will stay in-house until OR on 10/22-10/23 -Antibiotics as above. Hydronephrosis with urinary obstruction due to renal calculus 10/12/2023 Assessment & Plan (12/07/2023 1:48 PM BOSS DYER): - Patient with noted progressed hydronephrosis during [...] back Assessment & Plan (10/19/2023 12:54 PM BOSS DYER): Presented with generalized weakness with fever and [...] 10/08/2023 Assessment & Plan (10/20/2023 2:57 PM BOSS DYER): He has been planned for plan for [...] (10/18/2022): Added automatically from request for surgery [id number] Bladder neck obstruction 10/17/2022 Lesion of urinary bladder 10/17/2022 Prostate cancer 10/17/2022 Assessment & Plan (11/29/2023 7:14 PM BOSS DYER): - s/p prostatectomy Assessment & Plan (10/13/2023 5:39 AM BOSS DYER): S/p postprostatectomy HTN (hypertension) 10/10/2021 Assessment & Plan (11/29/2023 7:14 PM BOSS DYER): - Cont diltiazem - home ARB has been on hold at [facility] - continue to hold here initially Assessment & Plan (10/15/2023 9:11 AM BOSS DYER): Hold home irbesartan Restart diltiazem xl Risk factors for obstructive sleep apnea 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, initial encounter (HCC); Neurogenic bladder; Neurogenic bowel; Impaired mobility and ADLs 10/13/2024 8:30 AM BOSS DYER - 10/13/2024 11:59 PM BOSS DYER Hospital Encounter [facility] Imaging [address] [place] [address] Krista Aleman RN Despins, Jo Ann Torres, Kassy Locke, RT Anjana Gee RN Hydronephrosis with urinary obstruction due to renal calculus Discharge Disposition: Discharge to home or self care 10/10/2024 Telephone [facility] [address] [place] [address] Leticia Donahue RN 10/09/2024 Telephone [facility] Hematology [address] [facility] Floor 6 [place] [address] Oneyda Kaur RN 10/06/2024 Telephone [facility] Radiology [address] [facility] [place] [address] Viry Stroud RN 09/29/2024 3:40 PM BOSS DYER - 09/29/2024 11:59 PM BOSS DYER Hospital Encounter [facility] Radiology [facility] [place] [address] Corina Echavarria MD Bilateral lower extremity edema Discharge Disposition: Discharge to home or self care 09/29/2024 1:00 PM BOSS DYER Ancillary Procedure [facility] [address] [place] [address] [facility] 8th [place] [address] [place] [address] Bilateral lower extremity edema 09/24/2024 Telephone [facility] [address] [place], [place] [address] Leticia Donahue RN 09/23/2024 10:55 AM BOSS DYER - 09/23/2024 11:59 PM BOSS DYER Hospital Encounter [facility] [address] [place] [address] Corina Echavarria MD Noonan, Caitlin Therese, Anjana Delgadillo RN Hydronephrosis with urinary obstruction due to renal calculus Discharge Disposition: Discharge to home or self care 09/22/2024 [facility] [address] [place], [place] [address] Leticia Donahue RN 09/17/2024 Telephone [facility] Radiology 1 [place] [address] Viry Stroud RN 09/16/2024 Telephone [facility] [address] [place] [address] Leticia Donahue RN 09/15/2024 10:00 AM BOSS DYER Office Visit [facility] Radiology, Interventional Radiology [address] [facility] [address] [place] [address] Corina Echavarria MD Bilateral lower extremity edema (Primary Dx) 09/08/2024 Telephone [facility]iology 1 [place] [address] Viry Stroud, NARENDRA 09/08/2024 Orders Only [facility] Surgery [address] [place] [address] Temo Mcintosh MD Hydronephrosis with urinary obstruction due to renal calculus (Primary Dx); Renal failure, unspecified chronicity 09/05/2024 Orders Only [facility] Surgery [address] [place] [address] Temo Mcintosh MD Hydronephrosis with urinary obstruction due to renal calculus (Primary Dx) 09/05/2024 Orders Only [facility] Radiology 1 [place] [address] Meryl Longoria RN 09/04/2024 Telephone [facility] Orthopaedic Surgery [address] [facility] [address] [place] [phone] Marcial Vu Jr., MD Scheduling Appointments 09/03/2024 Orders Only [facility]iology 1 [place] [address] Meryl Longoria RN 09/02/2024 10:13 AM CDT - 09/02/2024 2:42 PM CDT Emergency [facility] Emergency Department [address] [place] [address] Wound of right foot (Primary Dx) Discharge Disposition: Discharge to home or self care 09/01/2024 Telephone [facility] Infectious Diseases [address] [place] [address] [address] [place] [phone] Caitlin Hussein BS 09/01/2024 Orders Only [facility] Radiology 1 [place] [address] Meryl Longoria RN 08/25/2024 3:30 PM CDT Telemedicine [facility] Hematology [address] [facility] Floor 6 [place] [phone] Katharine Hampton MD Anticoagulant long-term use (Primary Dx); Personal history of venous thrombosis and embolism; Pulmonary embolism, unspecified chronicity, unspecified pulmonary embolism type, unspecified whether acute cor pulmonale present (HCC) 08/25/2024 Orders Only [facility] Surgery [address] [place] [address] Temo Mcintosh MD Hydronephrosis with urinary obstruction due to renal calculus (Primary Dx) 08/25/2024 Orders Only [facility] Surgery [address] [place] [address] Temo Mcintosh MD Hydronephrosis with urinary obstruction due to renal calculus (Primary Dx) 08/21/2024 Telephone [facility] Surgery [address] [place] [address] Des Gay BS 08/14/2024 3:00 PM CDT Office Visit [facility] Surgery [address] [facility] Medical Office Building, [address] [place] [address] Corry Lopez, CARLA 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); History of prostate cancer 08/12/2024 Telephone [facility] Urology [address] [facility] 11th [place] [address] [place] [phone] Chad Vivas 08/05/2024 Telephone [facility] Radiology 1 [place], [place] [id number] Viry Stroud, RN 08/05/2024 Telephone [facility]iology 1 [place], [place] [id number] Viry Stroud, RN from Last 3 Months Immunizations Name Administration Dates Next Due Influenza, Quad, Adjuvantated, Intramuscular Influenza, Quadrivalent, Hig h Dose, Preservative Free, Intrr 08/20/2021 Influenza, Trivalent, Adjuvanted, Intramuscular 08/22/2019 Influenza, Trivalent, High D ose, Split, Preservative Free, Intramuscular 09/20/2018,07/26/2017 Influenza, Trivalent, IM (MDV) 07/27/2014,2012 Influenza, Trivalent, Preservative Free, Intramu scular 08/04/2015 Influenza, Unspecified 08/05/2021 MMR 11/13/2011 Moderna SARS-CoV-2 Monovalent Vaccination (12+ Y RS) 10/19/2021 Pneumococcal Conjugate PCV 13 09/20/2018, 016 Pneumococcal Polysaccharide PPV23 07/26/2017 Tdap 02/09/2021 ZOSTER Recombinant 05/16/2021,02/18/2021 Surgical History Surgery Date Site/Laterality Comments PROSTATECTOMY 11/05/2008 - 11/04/2009 MELANOMA RESECTION 11/05/2005 - 11/04/2006 Right flank REPLACEMENT TOTAL KNEE 11/05/2013 - 11/04/2014 Right REVISION TOTAL KNEE ARTHROPLASTY 09/30/2019 Right REPLACEMENT TOTAL KNEE 10/17/2021 Left VASECTOMY over 30 years ago FL UPPER GI AIR CONTRAST W KUB 09/21/2023 Left PERCUTANEOUS NEPHROSTOMY PCN LEFT 10/14/2023 Left removed 10/18/2023 INSERT VENA CAVA FILTER 11/09/2023 N/A CYSTOSCOPY 10/13/2023 pyelogram retrograde CYSTOSCOPY 10/18/2023 Left ureter stent, pyelogram retrograde THORACIC LAMINECTOMY 11/08/2023 T5-L5, and laminectomy posterior lumbar, repair dural tear LUMBAR LAMINECTOMY 10/23/2023 with fusion L4-5 CYSTOSTOMY W/ BLADDER BIOPSY 11/05/2022 - 12/05/2022 PERCUTANEOUS NEPHROSTOMY PCN LEFT 12/26/2023 Left NEPHROSTOMY CATHETER CHANGE LEFT 02/05/2024 Left REMOVE VENA CAVA FILTER 06/19/2024 N/A INJECTION FOR VENOGRAM Bilateral ABSCESS CATHETER INJECTION 10/13/2024 N/A Medical History Medical History Date Comments GERD (gastroesophageal reflu x disease) Hypertension Seasonal allergies Arthritis OA Personal history of prostate cancer History of melanoma Cancer (CMS/HCC) (HCC) prostate and melonomia Kidney stone Pneumonia Allergic rhinitis Cauda equina compression (HCC) Pulmonary embolism (HCC) DVT (deep venous thrombosis) (CMS/HCC) (HCC) Paraspinal hematoma 11/29/2023 Cardiac complication 10/23/2023 possible se izure in the PACU. Specifically, he developed right gaze deviation and bilateral tonic clonic movements. This was followed by a cardiac arrest requiring CPR. Family History Medical History Relation Name Comments Alcohol abuse Father Marcial Evans Cancer Father Marcial Evans Heart disease Mother Karishma Evans Lung disease Mother Karishma Evans Heart disease Other 1 Family history of cardiac disorder - (Added by TW Conv) Cancer Other 2 Family history of malignant neoplasm - (Added by TW Conv) Anesthesia problems Neg Hx Relation Name Status Comments Father Marcial Evans Mother Karishma Evans Other 1 Other 2 Social History Tobacco Use Types Packs/Day Years Used Date Smoking Tobacco: Former Cigarettes 1 11 1 969 - 1979 Passive Smoke Exposure: Never Smokeless Tobacco: Never Tobacco Cessation:Counseling Given: Not Answered Alcohol Use Standard Drinks/Week Comments Yes 14 (1 standard drink = 0.6 oz pu re alcohol) social [facility] Utilities Answer Date Recorded In the past 12 months has th e electric, gas, oil, or water company threatened to [...] often do you attend chur ch or confucianism services? 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 Not on file Not on file Not on file Obstetrics History Last Filed Vital Signs Vital Sign Reading Time Taken Comments Blood Pressure 126/80 10/22/2024 8:54 AM BOSS DYER Pulse 67 10/22/2024 8:54 AM BOSS DYER Temperature 36.9 ??C (98.5 ??F) 10/13/2024 8:38 AM CS T Respiratory Rate 16 10/13/2024 8:38 AM BOSS DYER Oxygen Saturation 98% 10/13/2024 8:38 AM BOSS DYER Inhaled Oxygen Concentration - - Weight 90.7 kg (200 lb) 10/22/2024 8:54 AM BOSS DYER Height 172.7 cm (5' 8 ) 09/23/2024 11:35 AM BOSS DYER Body Mass Index 30.41 09/23/2024 11:35 AM BOSS DYER Plan of Treatment Health Maintenance Due Date Last Done Comments Albumin Creatinine Ratio, Urine 1950 Colon Cancer Screening-Colonoscopy 1950 Hepatitis C Screening 1950 Dilated Eye Exam 1950 Foot Exam 1950 Hepatitis B Screening 1969 Well Visit 65+ 2016 Hemoglobin A1C 04/11/2024 10/11/2023 Covid-19 Vaccine (5 - 2023-2 5 season) 2024 10/19/2021, 06/20/2021, 12/31/2020, Additional history exists Lipid Panel 10/23/2024 10/23/2023 Depression Screening 11/28/2024 11/28/2023, 11/09/2023, 11/07/2023 eGFR 06/19/2025 06/19/2024, 06/0 05/2024, 01/23/2024, Additional history exists Fall Risk Assessment 10/13/2025 10/13/2024 DTaP/Tdap/Td Vaccine (2 - Td or Tdap) 02/09/2031 02/09/2021 Pneumococcal vaccine 65+ Completed 018, 07/26/2017, 06/23/2016 Zoster Vaccine Completed 05/16/2021, 02/18/2021 Influenza Vaccine Completed 08/14/2024, , 08/05/2021, Additional history exists Abdominal Aortic Aneurysm (A AA) Screen Completed 09/29/2024, 07/02/2024, 11/30/2023, Additional history exists Medical Devices Implanted Type Area Trouble Locater Device Identifier Shelf Expiration Date Model / Serial / Lot [employer] 6197-9-010 Simplex P Full Dose Radiopaque Preblend Cement Bone Tobramycin - S0 - [id number] Implanted:Qty: 2 on 09/30/2019 by Fransisco Heard MD at [facility] Bone Cement Right: Knee [employer] [id number] 11/04/2020 6197-9-010 / 0 / [id number] [employer] [id number] Kandace Ii 15mm Constrain Knee 5-6 Insert Articular Uhmwpe - S0 - [id number] Implanted:Qty: 1 on 09/30/2019 by Fransisco Heard MD at [facility] Other - see comments Right: Knee [employer] 03/13/2029 [id number] / 0 / [id number] [employer] [id number] Legion 10mm Screw Knee 6 Wedge Femoral - S0 - [id number] Implanted:Qty: 1 on 09/30/2019 by Fransisco Heard MD at [facility] Other - see comments Right: Knee [employer] [id number] 10/04/2022 [id number] / 0 / [employer] [id number] Legion Constrain Knee Right 6 Component Femoral Oxinium - S0 - [id number] Implanted:Qty: 1 on 09/30/2019 by Fransisco Heard MD at [facility] Other - see comments Right: Knee [employer] 05/26/2028 [id number] / 0 / [id number] [employer] [id number] Legion 5mm Alcon Step Knee Right Medial Left Lateral 5-6 Wedge - S0 - [id number] Implanted:Qty: 1 on 09/30/2019 by Fransisco Heard MD at [facility] Other - see comments Right: Knee [employer] [id number] 06/03/2024 [id number] / 0 / [employer] [id number] Legion 15mm 160mm Press Fit Knee Stem Femoral - S0 - [id number] Implanted:Qty: 1 on 09/30/2019 by Franissco Heard MD at [facility] Other - see comments Right: Knee [employer] 01/09/2028 [id number] / 0 / [id number] [employer] [id number] Legion 10mm Screw Knee 6 Wedge Femoral - S0 - [id number] Implanted:Qty: 1 on 09/30/2019 by Fransisco Heard MD at [facility] Other - see comments Right: Knee [employer] 03/04/2020 [id number] / 0 / [id number] [employer] [id number] Legion Revision Knee Right 5 Baseplate Tibial - S0 - [id number] Implanted:Qty: 1 on 09/30/2019 by Fransisco Heard MD at [facility] Other - see comments Right: Knee [employer] [id number] 08/28/2026 [id number] / 0 [id number] [employer] [id number] Legion 15mm 160mm Press Fit Knee Stem Femoral - S0 - [id number] Implanted:Qty: 1 on 09/30/2019 by Fransisco Heard MD at [facility] Other - see comments Right: Knee [employer] [id number] 06/21/2028 [id number] / 0 [id number] [employer] 5517-F-501 Triathlon Cruciate Retain Bead Knee Left 5 Component Femoral Pa - Sn/A - [id number] Implanted:Qty: 1 on 10/17/2021 by Laz Nolasco MD at [facility] Other - see comments Left: Knee [employer] [id number] 08/09/2026 5517-F-501 / N/A / [id number] [employer] [id number]-[id number]-600 Triathlon Knee 6 Baseplate Tibial Tritanium - Sn/A - [id number] Implanted:Qty: 1 on 10/17/2021 by Laz Nolasco MD at [facility] Other - see comments Left: Knee [facility] [id number] 07/24/2026 5536-B-600 / N/A / [id number] [facility] 0291-Y-408-E Insert Tibial Triathlon 6 H10mm Knee Bearing Condylar Stabilize Sterile - Sn/A - [id number] Implanted:Qty: 1 on 10/17/2021 by Laz Nolasco MD at [facility] Other - see comments Left: Knee [facility] [id number] 08/02/2026 5531-G-610 -E / N/A / [id number] Total Joint Bilatera l: Knee [facility] 6197-9-010 Simplex P Full Dose Radiopaque Preblend Cement Bone Tobramycin - [id number] Implanted:Qty: 2 on 09/30/2019 by Fransisco Heard MD at [facility] Right: Knee [facility] [id number] 6197-9-010 / / Allosource Crushed Chip Frozen Graft 30ml Bone Cancellous [id number] - [id number] Implanted:Qty: 1 on 10/23/2023 by Marcial Vu Jr., MD at [facility] N/A: Spine Lumbar [employer] 06/05/2028 [id number] / / [id number] [employer] Inc Allograft Bone Putty 2.5cc 700-025 - [id number] Implanted:Qty: 1 on 10/23/2023 by Marcial Vu Jr., MD at [facility] N/A: Spine Lumbar [employer] [id number] 01/02/2026 700-025 / / [id number] [employer] Creo Od7.5 Mm L55 Mm Thread Polyaxial Spine Screw Bone Titanium 5146.1757 - [id number] Implanted:Qty: 1 on 10/23/2023 by Marcial Vu Jr., MD at [facility] N/A: Spine Lumbar [employer] 5146.1757 / / [employer] Creo Od7.5 Mm L50 Mm Thread Polyaxial Spine Screw Bone Titanium 5146.1752 - [id number] Implanted:Qty: 3 on 10/23/2023 by Marcial Vu Jr., MD at [facility] N/A: Spine Lumbar [employer] 5146.1752 / / [employer] Creo Thread Spinal Cap Locking Nonsterile 1119.0010 - [id number] Implanted:Qty: 4 on 10/23/2023 by Marcial Vu Jr., MD at [facility] N/A: Spine Lumbar [employer] 1119.0010 / / [employer] Implant Spinal Sable 99n21gd 7-14mm 15 Deg 1172.2121s - [id number] Implanted:Qty: 1 on 10/23/2023 by Marcial Vu Jr., MD at [facility] N/A: Spine Lumbar [employer] 1172.2121S / / [employer] Creo 5.5mm 45mm Curve Dnaiel Spinal Titanium 1119.7045 - [id number] Implanted:Qty: 2 on 10/23/2023 by Marcial Vu Jr., MD at [facility] N/A: Spine Lumbar [employer] 1119.7045 / / [employer] Rex Arevalo Navalign 30mm 7fr 50mm 65cm Introducer Sheath F10180 - [id number] Implanted:Qty: 1 on 11/09/2023 at [facility] [employer] 05/02/2026 [id number] / / [id number] Medtronic Inc Abre 14mm 150mm Self Expand Rotate Thumbwheel Hemostatic Valve [id number] - [id number] Implanted:Qty: 1 on 08/04/2024 at [facility] [employer] 04/18/2027 [id number] 1500 90 / / [id number] Medtronic Inc Abre 14mm 150mm Self Expand Rotate Thumbwheel Hemostatic Valve [id number] - [id number] Implanted:Qty: 1 on 08/04/2024 at [facility] [employer] 10/10/2026 [id number] 1500 90 / / [id number] Medtronic Inc Abre 14mm 120mm Self Expand Rotate Thumbwheel Hemostatic Valve [id number] - [id number] Implanted:Qty: 1 on 08/04/2024 at [facility] [employer] 11/25/2026 AB9U14 1200 90 / / [id number] Medtronic Inc Abre 14mm 100mm Self Expand Rotate Thumbwheel Hemostatic Valve [id number] - [id number] Implanted:Qty: 1 on 08/04/2024 at [facility] [employer] Inc 02/19/2027 [id number] 1000 90 / / [id number] Explanted Type Area Trouble Locater Device Identifier Shelf Expiration Date Model / Serial / Lot [facility] [employer] [id number] 4mm 110mm Pin Fixation Sterile - Sn/A - [id number] Explanted:Qty: 1 on 10/17/2021 by Laz Nolasco MD at [facility] Pin Left: Knee [facility] [id number] / N/A / Description:For provisional purposes only [employer] [facility] [employer] [id number] 4mm 140mm Knee Straight Pin Fixation Sterile - Sn/A - [id number] Explanted:Qty: 1 on 10/17/2021 by Laz Nolasco MD at [facility] Pin Left: Knee [facility] [id number] / N/A / Description:For provisional purposes only [employer] Universa 6fr 28cm Firm Positioner Monofilament Tether Stent [id number] - [id number] Implanted:Qty: 1 on 10/18/2023 by Gabriel Bennett MD at [facility] Explanted:Qty: 1 on 02/27/2024 at [facility] Stent Left: Ureter [employer] [id number] 05/22/2026 [id number] / / [id number] [employer] [id number] 6fr 26cm 145cm Radiopaque Positioner Filiform Flexible Tip - [id number] Implanted:Qty: 1 on 02/27/2024 by Temo Mcintosh MD at [facility] Explanted:Qty: 1 on 06/06/2024 by Temo Mcintosh MD at [facility] Stent Left: Ureter [employer] [id number] 12/07/2026 [id number] / / [id number] Description:Explanted comple te and intact Procedures Procedure Name Priority Date/Time Associated Diagnosis Comments ABSCESS CATHETER INJECTION Schedule Routine, Read Routine (OP Routine) 10/13/2024 9:20 AM BOSS [facility]ER Hydronephrosis with urinary obstruction due to renal calculus CT ABDOMEN PELVIS W CONTRAST Schedule Routine, Read Routine (OP Routine) 09/29/2024 4:48 PM [facility]ER Bilateral lower extremity edema POCT CREATININE - DEVICE Routine 09/29/2024 4:27 PM [facility]OSS [facility]ER US VENOUS REFLUX BILATERAL Schedule Routine, Read Routine (OP Routine) 09/29/2024 3:27 PM BOSS D[facility]ER Bilateral lower extremity edema SUPRAPUBIC CATHETER INSERTION Schedule Routine, Read Routine (OP Routine) 09/23/2024 12:24 PM [facility] Hydronephrosis with urinary obstruction due to renal calculus DIFFERENTIAL AUTO STAT 09/02/2024 11: 13 AM CDT CRP (ACUTE PHASE) STAT 09/02/2024 11: 13 AM CDT ERYTHROCYTE SEDIMENTATION RATE STAT 09/02/2024 11:13 AM CDT CBC WITH AUTO DIFFERENTIAL STAT 09/02/2024 11:13 AM CDT BLOOD CULTURE STAT 09/02/2024 11:13 AM CDT BLOOD CULTURE STAT 09/02/2024 11:13 AM CDT XR FOOT RIGHT 3 OR MORE VIEWS ED 09/02/2024 11:03 AM CDT EGFR Routine 06/19/2024 8:07 AM CDT Presence of IVC filter LIPID PANEL STAT 10/23/2023 11:02 PM BOSS [facility]ER POCT HEMOGLOBIN A1C Routine 10/11/2023 1 1:43 AM BOSS D[facility]ER from Last 3 Months or Most Recently Relevant to Health Maintenance Results * IR Inject Abscess Catheter (10/13/2024 9:20 AM BOSS DYER) Anatomical Region Laterality Modality Body N/A X-Ray Angiograph y 10/13/2024 11:3 7 AM [facility]OSS [facility]ER Impressions 10/13/2024 11:37 AM [facility]OSS DYER Well-positioned suprapubic catheter. PLAN: Continue to monitor catheter output as well as the patient's clinical condition. ??Patient will be scheduled for exchange 6-8 weeks from time of initial placement. If questions arise, please contact us by calling [phone]. Electronically signed by: Nazario Peterson PA-C Narrative 10/13/2024 11:37 AM [facility]OSS [facility]ER EXAMINATION: SUPRAPUBIC CATHETER EVALUATION HISTORY: ??74-year-old male with neurogenic bladder underwent suprapubic catheter placement on 09/23/2024. ??Patient presents today with leakage from the drainage bag as well 3 day history of mild hematuria. PROVIDER PRESENCE: Nazario Peterson PA-C, was present from the beginning to the end of the procedure. ?? SEDATION: ??No sedation TECHNIQUE: Prior to beginning the procedure, [place] Protocol was used to confirm the patient's identity and planned procedure. Fluoroscopy time has been recorded in the electronic medical record. After obtaining a diet clerk image, the catheter was injected with dilute [...] sedation TECHNIQUE: Prior to beginning the procedure, [place] Protocol was used to confirm the patient's identity and planned procedure. Fluoroscopy time has been recorded in the electronic medical record. After obtaining a diet clerk image, the catheter was injected with dilute [...] questions arise, please contact us by calling [phone]. Electronically signed by: Nazario Peterson PA-C us Corina Echavarria MD IMG IR PROCEDURES Final Re sult * CT Abdomen Pelvis W Contrast (09/29/2024 4:48 PM BOSS DYER) Anatomical Region Laterality Modality Body N/A Computed Tomogra phy 09/30/2024 7:58 AM BOSS DYER Impressions 09/30/2024 7:58 AM BOSS DYER 1. ??Stents extending from the inferior vena [...] Yesica Bennett M.D. Narrative 09/30/2024 7:58 AM BOSS [facility]YER EXAMINATION: ??Computed tomography of the abdomen and [...] recommended. Electronically signed by: Yesica Bennett M.D. Corina Echavarria MD IMG CT PROCEDURES Final Re sult * POCT creatinine (09/29/2024 4:27 PM BOSS DYER) Creatinine POC 0.7 0.7 - 1.3 mg/dL Blood 09/29/2024 4:27 PM BOSS DYER 09/29/2024 4:27 PM BOSS DYER Corina Echavarria MD LAB POCT ORDERABLES - GILBERT CE Final Result [facility] Department [place] [address] * US Venous Reflux Bilateral (09/29/2024 3:27 PM BOSS DYER) Anatomical Region Laterality Modality Vascular Bilateral Ultrasound 09/29/2024 2:23 PM BOSS DYER Narrative 09/29/2024 7:08 PM BOSS DYER [facility] - Department of Vascular Surgery, Vascular Laboratory [address] [place] [id number] Lower Extremity Venous Reflux Duplex Report Patient Name: HIRA EVANS WILLIAM : 1950 (74y 3m) Study Date: 09/29/2024 2:23:50 PM Gender: M Tech: Location: [facility] Provider: CORINA ECHAVARRIA Quality: Adequate Order Provider: CORINA ECHAVARRIA PROCEDURES: Vascular Report: Lower extremity venous valvular insufficiency or reflux evaluation is performed with rapid cuff inflator. Veins evaluated are sapheno-femoral junction, great saphenous, common femoral, femoral, profunda femoral, popliteal, sapheno-popliteal and small saphenous veins bilaterally. Criteria for superficial vein reflux is retrograde blood flow greater than 0.5 seconds. INDICATIONS: R60.0 Localized edema. Measurements: Right Leg ? Left Leg Measurement ?Value ?Units ?Measurement ?Value ? Units Rt Sapheno-Femoral Junction ?0.58 ? cm ? Lt Sapheno-Femoral Junction ?0.67 ?cm Rt Great Saphenous Thigh - Proximal ?0.58 ? cm ? Lt Great Saphenous Thigh - Proximal ?0.57 ?cm Rt Great Saphenous Thigh - Mid ? 0.55 ? cm ? Lt Great Saphenous Thigh - Mid ? 0.55 ?cm Rt Great Saphenous Thigh - Distal ?0.52 ? cm ? Lt Great Saphenous Thigh - Distal ?0.56 ?cm Rt Great Saphenous Knee ?0.47 ? cm ? Lt Great Saphenous Knee ?0.47 ?cm Rt Great Saphenous Calf - Proximal ? 0.44 ? cm ? Lt Great Saphenous Calf - Proximal ? Unable to locate ?cm Rt Great Saphenous Calf - Mid ?0.41 ? cm ? Lt Great Saphenous Calf - Mid ?Unable to locate ?cm Rt Great Saphenous Calf - Distal ? 0.42 ? cm ? Lt Great Saphenous Calf - Distal ? Unable to locate ?cm Rt Sapheno-Popliteal Junction ?0.40 ? cm ? Lt Sapheno-Popliteal Junction ?Does not connect to popliteal vein ?cm Rt Small Saphenous Proximal ?0.44 ? cm ? Lt Small Saphenous Proximal ?0.30 ?cm Rt Small Saphenous Mid ? 0.46 ? cm ? Lt Small Saphenous Mid ? 0.29 ?cm Rt Small Saphenous Distal ?0.46 ? cm ? Lt Small Saphenous Distal ?0.34 ?cm Rt CFV Reflux Time ? 0.00 ? ms ? Lt CFV Reflux Time ? 0.00 ?ms Rt SFJ Reflux Time ? 0.00 ? ms ? Lt SFJ Reflux Time ? 0.00 ?ms Rt GSV Thigh Reflux Time ? 0.00 ? ms ? Lt GSV Thigh Reflux Time ? 0.00 ?ms Rt PFV Reflux Time ? 1210.00 ?ms ? Lt PFV Reflux Time ? 0.00 ?ms Rt FV Mid Reflux Time ?0.00 ? ms ? Lt FV Mid Reflux Time ?2134.00 ? ms Rt GSV Knee Reflux Time ?0.00 ? ms ? Lt GSV Knee Reflux Time ?0.00 ?ms Rt GSV Below Knee Reflux Time ?0.00 ? ms ? Lt GSV Below Knee Reflux Time ?Unable to locate ?ms Rt Popliteal Reflux Time ? 0.00 ? ms ? Lt Popliteal Reflux Time ? 4372.00 ? ms Rt SPJ Reflux Time ? 0.00 ? ms ? Lt SPJ Reflux Time ? Does not connect to popliteal vein ?ms Rt Prox SSV Reflux Time ?0.00 ? ms ? Lt Prox SSV Reflux Time ?0.00 ?ms Rt Mid SSV Reflux Time ? 0.00 ? ms ? Lt Mid SSV Reflux Time ? 0.00 ?ms Measurement ?Value ?Units ?Measurement ?Value ? Units Right Leg ? Left Leg - FINDINGS: Performing Candy Spreader: Josiane Chance RVT. Patient positioning: Reflux testing is performed in reverse Trendelenburg position with Rapid Cuff Inflator (thigh, calf). Right: The common femoral, femoral, popliteal veins were evaluated with compression maneuvers. No evidence of deep vein thrombus by duplex, proximal to the calf. Noninvasive venous studies cannot rule out an isolated calf vein obstruction. On the right venous reflux noted in profunda femoral vein. Left: The common femoral, femoral, popliteal veins were evaluated with compression maneuvers. Positive for chronic DVT changes in the left lower extremity. Deep veins involved include the popliteal vein. On the left venous reflux noted in mid femoral vein and popliteal vein. CONCLUSIONS: On the right venous reflux noted in profunda femoral vein. On the left venous reflux noted in mid femoral vein and popliteal vein. There is no evidence of acute deep vein thrombosis on the right. Noninvasive venous studies cannot rule out isolated calf vein obstruction. There is chronic deep vein thrombosis (post-thrombotic changes) in the left lower extremity. HISTORY: HTN, PE, DVT, Cancer, former smoker. PREVIOUS STUDIES: No previous studies for comparison. DISCLAIMER: The study images and the final report will be retained in the patient chart by the Vascular Laboratory for the legally required time period. This chart constitutes the legal record of any testing performed. ATTESTATION: I have reviewed and interpreted the pertinent images and measurements of this study. I attest to the conclusions in the final report that is provided above. Electronically Signed By: Scott Martinez MD FACS 09/29/2024 7:07:50 PM BOSS [facility]ER Procedure Note Scott Martinez MD - 09/29/2024 [facility] - Department of Vascular Surgery,Vascular Laboratory [address] [place], [place] [id number] Lower Extremity Venous Reflux Duplex Report Patient Name: HIRA EVANS WILLIAM : 1950 (74y 3m) Study Date: 09/29/2024 2:23:50 PM Gender: M Tech: Location: [facility] Ref Provider: CORINA ECHAVARRIA Quality: Adequate Order Provider: CORINA ECHAVARRIA PROCEDURES: Vascular Report: Lower extremity venous valvular insufficiency or reflux evaluation isperformed with rapid cuff inflator. Veins evaluated are sapheno-femoral junction, great saphenous, commonfemoral, femoral, profunda femoral, popliteal, sapheno-popliteal and small saphenous veinsbilaterally. Criteria for superficial vein reflux is retrograde blood flow greater than0.5 seconds. INDICATIONS: R60.0 Localized edema. Measurements: Right LegLeft Leg Measurement Value Units MeasurementValue Units Rt Sapheno-Femoral Junction 0.58 cm LtSapheno-Femoral Junction 0.67cm Rt Great Saphenous Thigh - Proximal 0.58 cm Lt GreatSaphenous Thigh - Proximal 0.57 cm Rt Great Saphenous Thigh - Mid 0.55 cm Lt GreatSaphenous Thigh - Mid 0.55 cm Rt Great Saphenous Thigh - Distal 0.52 cm Lt GreatSaphenous Thigh - Distal 0.56 cm Rt Great Saphenous Knee 0.47 cm Lt GreatSaphenous Knee 0.47 cm Rt Great Saphenous Calf - Proximal 0.44 cm Lt GreatSaphenous Calf - Proximal Unable to locatecm Rt Great Saphenous Calf - Mid 0.41 cm Lt GreatSaphenous Calf - Mid Unable to locate cm Rt Great Saphenous Calf - Distal 0.42 cm Lt GreatSaphenous Calf - Distal Unable to locatecm Rt Sapheno-Popliteal Junction 0.40 cm LtSapheno-Popliteal Junction Does not connect to popliteal veincm Rt Small Saphenous Proximal 0.44 cm Lt SmallSaphenous Proximal 0.30 cm Rt Small Saphenous Mid 0.46 cm Lt SmallSaphenous Mid 0.29 cm Rt Small Saphenous Distal 0.46 cm Lt SmallSaphenous Distal 0.34 cm Rt CFV Reflux Time 0.00 ms Lt CFV RefluxTime 0.00 ms Rt SFJ Reflux Time 0.00 ms Lt SFJ RefluxTime 0.00 ms Rt GSV Thigh Reflux Time 0.00 ms Lt GSV ThighReflux Time 0.00 ms Rt PFV Reflux Time 1210.00 ms Lt PFV RefluxTime 0.00 ms Rt FV Mid Reflux Time 0.00 ms Lt FV MidReflux Time 2134.00 ms Rt GSV Knee Reflux Time 0.00 ms Lt GSV KneeReflux Time 0.00 ms Rt GSV Below Knee Reflux Time 0.00 ms Lt GSV BelowKnee Reflux Time Unable to locate ms Rt Popliteal Reflux Time 0.00 ms Lt PoplitealReflux Time 4372.00 ms Rt SPJ Reflux Time 0.00 ms Lt SPJ RefluxTime Does not connect to popliteal vein ms Rt Prox SSV Reflux Time 0.00 ms Lt Prox SSVReflux Time 0.00 ms Rt Mid SSV Reflux Time 0.00 ms Lt Mid SSVReflux Time 0.00 ms Measurement Value Units MeasurementValue Units Right LegLeft Leg - FINDINGS: Performing Candy Spreader: Josiane Chance RVT. Patient positioning: Reflux testing is performed in reverse Trendelenburg position with RapidCuff Inflator (thigh, calf). Right: The common femoral, femoral, popliteal veins were evaluated withcompression maneuvers. No evidence of deep vein thrombus by duplex, proximal to the calf.Noninvasive venous studies cannot rule out an isolated calf vein obstruction. On the rightvenous reflux noted in profunda femoral vein. Left: The common femoral, femoral, popliteal veins were evaluated withcompression maneuvers. Positive for chronic DVT changes in the left lower extremity. Deep veinsinvolved include the popliteal vein. On the left venous reflux noted in mid femoral veinand popliteal vein. CONCLUSIONS: On the right venous reflux noted in profunda femoral vein. On the left venous reflux noted in mid femoral vein and popliteal vein. There is no evidence of acute deep vein thrombosis on the right.Noninvasive venous studies cannot rule out isolated calf vein obstruction. There is chronic deep vein thrombosis (post-thrombotic changes) in theleft lower extremity. HISTORY: HTN, PE, DVT, Cancer, former smoker. PREVIOUS STUDIES: No previous studies for comparison. DISCLAIMER: The study images and the final report will be retained in the patientchart by the Vascular Laboratory for the legally required time period. This chartconstitutes the legal record of any testing performed. ATTESTATION: I have reviewed and interpreted the pertinent images and measurements ofthis study. I attest to the conclusions in the final report that is provided above. Electronically Signed By: Scott Martinez MD FACS 09/29/2024 7:07:50 PM BOSS DYER us Corina Echavarria MD IMG US PROCEDURES Final Re sult * IR Suprapubic Catheter Insertion (09/23/2024 12:24 PM BOSS DYER) Anatomical Region Laterality Modality Body N/A Ultrasound 09/23/2024 12:5 2 PM BOSS DYER Impressions 09/23/2024 12:52 PM BOSS DYER Successful image guided suprapubic catheter tube placement. PLAN: Routine exchange in 12 weeks. Electronically signed by: Corina Echavarria M.D. Narrative 09/23/2024 12:52 PM BOSS DYER EXAMINATION: ??PERCUTANEOUS SUPRAPUBIC CATHETER PLACEMENT HISTORY/INDICATION: ??74-year-old male with neurogenic bladder requiring long-term Sofia catheter but requesting a suprapubic catheter tube placement now ATTENDING PRESENCE: Corina Echavarria M.D., the attending radiologist was present from the beginning to the end of the procedure. ?? SEDATION: Procedural sedation was administered under the attending physician's direction and continuous monitoring by a trained nurse specialist who was independent from those actually performing the procedure. ??Total monitored sedation time was 23 minutes. TECHNIQUE: The risks, benefits and alternatives were discussed and informed consent was obtained. ??Prior to beginning the procedure, [place] Protocol was used to confirm the patient's identity and planned procedure. ??If fluoroscopy was used, fluoroscopy time has been recorded in the electronic medical record. Maximum sterile barriers including cap, mask, hand hygiene, sterile gloves, sterile gown, large sterile drape and 2% chlorhexidine for cutaneous antisepsis were used. ?? The skin overlying the urinary bladder was sterilely prepped, draped and infiltrated with 1% buffered lidocaine. ?? The targeted collection was then accessed with a 18 gauge trocar needle using imaging guidance which included ultrasound and fluoroscopy. ??Contrast was injected to confirm needle placement. ?? A guidewire was advanced and coiled within the collection before dilating the tract to ??16 Fr. ??A 16-Cymro multipurpose cope loop catheter was then advanced over the guidewire and secured in place with a stitch of 0-Prolene. The catheter was connected to gravity drainage. ??A sterile dressing was applied. ESTIMATED BLOOD LOSS: Minimal. CONDITION: Stable DISCHARGED TO: Recovery and then to home. ?? FINDINGS: Images from the procedure revealed a urinary bladder with thickened wall. ??Successful placement of catheter within the bladder lumen. Procedure Note Corina Echavarria MD - 09/23/2024 EXAMINATION: PERCUTANEOUS SUPRAPUBIC CATHETER PLACEMENT HISTORY/INDICATION: 74-year-old male with neurogenic bladder requiring long-term Sofia catheter but requesting a suprapubic catheter tube placement now ATTENDING PRESENCE: Corina Echavarria M.D., the attending radiologist was present from the beginning to the end of the procedure. SEDATION: Procedural sedation was administered under the attending physician's direction and continuous monitoring by a trained nurse specialist who was independent from those actually performing the procedure. Total monitored sedation time was 23 minutes. TECHNIQUE: The risks, benefits and alternatives were discussed and informed consent was obtained. Prior to beginning the procedure, [place] Protocol was used to confirm the patient's identity and planned procedure. If fluoroscopy was used, fluoroscopy time has been recorded in the electronic medical record. Maximum sterile barriers including cap, mask, hand hygiene, sterile gloves, sterile gown, large sterile drape and 2% chlorhexidine for cutaneous antisepsis were used. The skin overlying the urinary bladder was sterilely prepped, draped and infiltrated with 1% buffered lidocaine. The targeted collection was then accessed with a 18 gauge trocar needle using imaging guidance which included ultrasound and fluoroscopy. Contrast was injected to confirm needle placement. A guidewire was advanced and coiled within the collection before dilating the tract to 16 Fr. A 16-Cymro multipurpose cope loop catheter was then advanced over the guidewire and secured in place with a stitch of 0-Prolene. The catheter was connected to gravity drainage. A sterile dressing was applied. ESTIMATED BLOOD LOSS: Minimal. CONDITION: Stable DISCHARGED TO: Recovery and then to home. FINDINGS: Images from the procedure revealed a urinary bladder with thickened wall. Successful placement of catheter within the bladder lumen. IMPRESSION: Successful image guided suprapubic catheter tube placement. PLAN: Routine exchange in 12 weeks. Electronically signed by: Corina Echavarria M.D. Temo Mcintosh MD IM IR PROCEDURES Final Result * Differential, auto (09/02/2024 11:13 AM CDT) Neutrophil abs 2.0 1.5 - 6.5 K/cumm Imm gran abs 0.0 0.0 - 0.1 K/cumm [facility] Lymphocyte abs 1.6 0.8 - 3.3 K/cumm [facility] Monocyte abs 0.3 0.2 - 0.8 K/cumm [facility] Eosinophil abs 0.3 0.0 - 0.5 K/cumm [facility] Basophil abs 0.0 0.0 - 0.1 K/cumm [facility] Neutrophil pct 46.5 % [facility] Comment: Interpretive Data Percent cell count reference ranges are not reported, since discordance with absolute values may lead to misinterpretation of CBC data. Current Interpretive Data was last revised on 2018. Imm gran pct 0.2 % [facility] Comment: Interpretive Data Percent cell count reference ranges are not reported, since discordance with absolute values may lead to misinterpretation of CBC data. Current Interpretive Data was last revised on 2018. Lymphocyte pct 37.5 % [facility] Comment: Interpretive Data Percent cell count reference ranges are not reported, since discordance with absolute values may lead to misinterpretation of CBC data. Current Interpretive Data was last revised on 2018. Monocyte pct 7.9 % [facility] Comment: Interpretive Data Percent cell count reference ranges are not reported, since discordance with absolute values may lead to misinterpretation of CBC data. Current Interpretive Data was last revised on 2018. Eosinophil pct 7.4 % [facility] Comment: Interpretive Data Percent cell count reference ranges are not reported, since discordance with absolute values may lead to misinterpretation of CBC data. Current Interpretive Data was last revised on 2018. Basophil pct 0.5 % [facility] Comment: Interpretive Data Percent cell count reference ranges are not reported, since discordance with absolute values may lead to misinterpretation of CBC data. Current Interpretive Data was last revised on 2018. Blood 09/02/2024 11:1 3 AM CDT 09/02/2024 11:20 AM CDT us Eula Lopez [facility] LAB BLOOD ORDERABLES Fide rick Result [facility] [id number] [facility]. Department [place] [address] * (ABNORMAL) CBC with auto differential (09/02/2024 11:13 AM CDT) WBC 4.3 3.8 - 9.9 K/cumm Hgb 13.4 13.0 - 17.5 g/dL [facility] Hct 39.8 38.9 - 50.3 % [facility] Plt 196 150 - 400 K/cumm [facility] MPV 10.4 9.1 - 12.3 fL [facility] RBC 4.12(L) 4.30 - 5.80 M/cumm [facility] MCV 96.6(H) 81.3 - 96.4 fL [facility] MCH 32.5 27.1 - 33.3 pg LAURA ESPINOZA MCHC 33.7 32.3 - 35.7 g/dL [facility]URA ESPINOZA RDW CV 11.9 11.1 - 14.9 % LA[facility]A ESPINOZA RDW SD 42.3 35.7 - 48.1 fL [facility] ESPINOZA NRBC abs 0.00 0.00 - 0.01 K/cumm [facility] ESPINOZA Blood (Blood, Venous) 09/02/2024 11:13 AM CDT 09/02/2024 11:20 AM CDT Eula Lopez [facility] LAB BLOOD ORDERABLES Fide l Result Performing Organization Address [facility]/ZIP Co de Phone Number [facility] [id number] [employer]. Department [place] [address] * Blood culture Blood (09/02/2024 11:13 AM CDT) Report Final Report: No growth Comment:Testing performed by : [facility], [address] [place] [address]., [id number] Blood 09/02/2024 11:1 3 AM CDT 09/02/2024 12:40 PM CDT Narrative LAURA ESPINOZA - 09/07/2024 1:00 PM BOSS DYER Collection->Peripheral Interpretive Data 1. Blood cultures are incubated and monitored continuously for 5 days (120 hours). The first negative report is issued within 24 hours of receipt in the laboratory. 2. All positive cultures are resulted and called to physicians/care providers as soon as they are detected. 3. A rapid molecular test for organism identification may be performed using the mth sense Blood Culture Identification panel. This assay detects microbial DNA in a blood culture broth. This assay has been cleared by the [place] Food and Drug Administration and its performance characteristics have been verified by the [facility]. Interpretive data was last revised on December 07, 2022. Eula Lopez [facility] LAB MICROBIOLOGY - GENERA L ORDERABLES Final Result Performing Organization Address City/[facility]/ZIP Co de Phone Number LAURA ZARAGOZACH [id number] [employer]. [facility] [place] [place] [address] * Blood culture Blood (09/02/2024 11:13 AM CDT) Report Final Report: No growth Comment:Testing performed by : [facility], [facility] [facility], [place]., [address] Blood 09/02/2024 11:1 3 AM CDT 09/02/2024 12:40 PM CDT Narrative LAURA ESPINOZA - 09/07/2024 1:00 PM BOSS DYER Collection->Peripheral Interpretive Data 1. Blood cultures are incubated and monitored continuously for 5 days (120 hours). The first negative report is issued within 24 hours of receipt in the laboratory. 2. All positive cultures are resulted and called to physicians/care providers as soon as they are detected. 3. A rapid molecular test for organism identification may be performed using the mth sense Blood Culture Identification panel. This assay detects microbial DNA in a blood culture broth. This assay has been cleared by the [place] Food and Drug Administration and its performance characteristics have been verified by the [facility]. Interpretive data was last revised on December 07, 2022. Eula Lopez [facility] LAB MICROBIOLOGY - GENERA L ORDERABLES Final Result [facility] [id number] [facility]. [facility] [place] [place] [address] * (ABNORMAL) Erythrocyte sedimentation rate (09/02/2024 11:13 AM CDT) Erythrocyte sedimentation rate 39(H) 1 - 20 mm/hr Blood 09/02/2024 11:1 3 AM CDT 09/02/2024 11:20 AM CDT Eula Lopez [facility] LAB BLOOD ORDERABLES Fide l Result [facility] [address] [facility]. [facility] [place] [place] [address] * CRP (acute phase) (09/02/2024 11:13 AM CDT) CRP 6.7 <=10.0 mg/L Blood 09/02/2024 11:1 3 AM CDT 09/02/2024 11:20 AM CDT us Eula Lopez [facility] LAB BLOOD ORDERABLES Fide l Result [facility] [id number] [facility]. [place] [address] * XR Foot Right 3 or More Views (09/02/2024 11:03 AM CDT) Anatomical Region Laterality Modality Lower Extremities, Foot Right Computed Radiography 09/02/2024 11:1 7 AM CDT Impressions 09/02/2024 11:17 AM CDT 1. ??Marked diffuse soft tissue swelling, most pronounced in the forefoot, suggestive of cellulitis. 2. ??Cutaneous wound overlying the 5th metatarsal bone. 3. ??No specific radiographic evidence of acute osteomyelitis, although evaluation is significantly limited due to diffusely heterogeneous mineralization pattern in this patient with paraplegia. Electronically signed by: Jose Enrique Aguirre D.O. Narrative 09/02/2024 11:17 AM CDT EXAMINATION: XR FOOT RIGHT 3 OR MORE VIEWS HISTORY: Paraplegia. Reported open wound extending to bone. FINDINGS: There appears to be a wound overlying the 5th metatarsal. The subjacent bone does not demonstrate focal cortical defect, although appears heterogeneous, similar to that seen throughout the foot. The diffuse heterogeneous mineralization pattern with patchy lucency is consistent with disuse and history of paraplegia. This limits evaluation for erosive cortical destruction or permeative osseous loss, although no specific findings are seen to suggest acute osteomyelitis. No acute fracture within exam limitations. There is marked diffuse soft tissue swelling throughout the foot most pronounced in the forefoot. Procedure Note Jose Enrique Aguirre, DO - 09/02/2024 EXAMINATION: XR FOOT RIGHT 3 OR MORE VIEWS HISTORY: Paraplegia. Reported open wound extending to bone. FINDINGS: There appears to be a wound overlying the 5th metatarsal. The subjacent bone does not demonstrate focal cortical defect, although appears heterogeneous, similar to that seen throughout the foot. The diffuse heterogeneous mineralization pattern with patchy lucency is consistent with disuse and history of paraplegia. This limits evaluation for erosive cortical destruction or permeative osseous loss, although no specific findings are seen to suggest acute osteomyelitis. No acute fracture within exam limitations. There is marked diffuse soft tissue swelling throughout the foot most pronounced in the forefoot. IMPRESSION: 1. Marked diffuse soft tissue swelling, most pronounced in the forefoot, suggestive of cellulitis. 2. Cutaneous wound overlying the 5th metatarsal bone. 3. No specific radiographic evidence of acute osteomyelitis, although evaluation is significantly limited due to diffusely heterogeneous mineralization pattern in this patient with paraplegia. Electronically signed by: Jose Enrique Aguirre D.O. Eula Wilsonoriana Lopez DNP IMG XR PROCEDURES Final R esult * eGFR (06/19/2024 8:07 AM CDT) eGFR >90 >=60 mL/min/1. 73 m2 Comment: Interpretive Data Reference Interval Normal ?>/= 90 mL/min/1.73m2 Mildly decreased* ? 60 - 89 mL/min/1.73m2 Mildly to moderately decreased ?45 - 59 mL/min/1.73m2 Moderately to severely decreased ??30 - 44 mL/min/1.73m2 Severely decreased ?15 - 29 mL/min/1.73m2 Kidney Failure ?< 15 ??mL/min/1.73m2 *Relative to young adult level Estimated glomerular [...] Current interpretive data was last reviewed 2021. Blood 06/19/2024 8:07 AM CDT 06/19/2024 8:40 AM CDT Corina Echavarria MD LAB BLOOD ORDERABLES Final Result [facility] Department [place] [address] * (ABNORMAL) Lipid panel (10/23/2023 11:02 PM BOSS DYER) Cholesterol 162 30 - 199 mg/dL [facility] Comment: Interpretive Data Ages < or = 19 years ??Acceptable: ? <170 mg/dL ??Borderline high: ??170-199 mg/dL ??High: ? >or= 200 mg/dL Ages > or = 20 years ??Desirable: ?<200 mg/dL ??Borderline high: ??200-239 mg/dL ??High: ? >or= 240 mg/dL Literature References: 1. Expert Panel on Integrated Guidelines for Cardiovascular Health and Risk Reduction in Children and Adolescents. Pediatrics 2011;128:S213 2. NCEP Expert Panel. Circulation 2004;110:227 Current Interpretive Data was last revised on 2018. Triglycerides 134 <=149 mg/dL [facility] Comment: Interpretive Data Ages < or = 9 years ??Acceptable: ? <75 mg/dL ??Borderline high: ??75-99 mg/dL ??High: ? >or= 100 mg/dL Ages 10 to 20 years ??Acceptable: ? <90 mg/dL ??Borderline high: ??90-129 mg/dL ??High: ? >or= 130 mg/dL Ages > or = 20 years ??Desirable: ?<150 mg/dL ??Borderline high: ??150-199 mg/dL ??High: ? 200-499 mg/dL ?Very high: ?? >or= 499 mg/dL Literature References: 1. Expert Panel on Integrated Guidelines for Cardiovascular Health and Risk Reduction in Children and Adolescents. Pediatrics 2011;128:S213 2. NCEP Expert Panel. Circulation 2004;110:227 Current Interpretive Data was last revised on 2018. HDL 34(L) >=40 mg/dL [facility] Comment: Interpretive Data Ages < or = 19 years ??Acceptable: ? >45 mg/dL ??Borderline low: ?? 40-45 mg/dL ??Low: ? <40 mg/dL Ages > or = 20 years ??Desirable: ?>or= 60 mg/dL ??Low: ? <40 mg/dL Literature References: 1. Expert Panel on Integrated Guidelines for Cardiovascular Health and Risk Reduction in Children and Adolescents. Pediatrics 2011;128:S213 2. NCEP Expert Panel. Circulation 2004;110:227 Current Interpretive Data was last revised on 2018. LDL, calculated 101 <=129 mg/dL [facility] Comment: Interpretive Data Ages < or = 19 years ??Acceptable: ? <110 mg/dL ??Borderline high: ??110-129 mg/dL ??High: ?>or= 130 mg/dL Ages > or = 20 years ??Optimal: ? <100 mg/dL ??Near optimal: ?100-129 mg/dL ??Borderline high: ?? 130-159 mg/dL ??High: ?>160 mg/dL Literature References: 1. Expert Panel on Integrated Guidelines for Cardiovascular Health and Risk Reduction in Children and Adolescents. Pediatrics 2011;128:S213 2. NCEP Expert Panel. Circulation 2004;110:227 Current Interpretive Data was last revised on 2018. Non-HDL Cholesterol 128 mg/dL [facility] Comment: Interpretive Data Ages < or = 19 years ??Acceptable: ?<120 mg/dL ??Borderline high: ??120-144 mg/dL ??High: ?>145 mg/dL Ages > or = 20 years ??When triglycerides are >200 mg/dL, Non-HDL cholesterol is a secondary target of ? therapy with treatment goals that are 30 mg/dL greater than the LDL cholesterol target. ? Literature References: 1. Expert Panel on Integrated Guidelines for Cardiovascular Health and Risk Reduction in Children and Adolescents. Pediatrics 2011;128:S213 2. NCEP Expert Panel. Circulation 2004;110:227 Current Interpretive Data was last revised on 2018. Chol/HDL ratio 5 [facility] Blood 10/23/2023 11:0 2 PM BOSS DYER 10/23/2023 11:14 PM BOSS DYER Narrative [facility] - 10/24/2023 11:06 AM BOSS DYER This lipid panel was automatically ordered due to a significant change in Troponin. The dietary status of the patient at the collection time should be correlated with the lipid results. us Marcial Vu Jr., MD LAB BLOOD ORDERABLE S Final Result [facility] Department [place] [address] * POCT hemoglobin A1c (10/11/2023 11:43 AM BOSS DYER) Hgb A1C, POC 5.5 4.0 - 5.6 % [facility] Est Average Gluc POC 111 mg/dL [facility] Comment: The ADA recommends reporting an estimated Average Glucose (eAG) with all Hemoglobin A1c results using the equation derived from a study of 507 normal and diabetic adults. ??Minority populations were underrepresented and children were not included. ?? (Diabetes Care 31:8013-4039, 2008). ??The eAG is not equivalent to a fasting glucose. Blood 10/11/2023 11:4 3 AM BOSS DYER 10/11/2023 11:43 AM BOSS DYER Marcial Vu Jr., MD POINT OF CARE TEST ORDERABLES Final Result [facility] Department [place] [address] from Last 3 Months or Most Recently Relevant to Health Maintenance Insurance MEDICARE [employer] [facility] MEDICARE Address: [address] [address] [place] [address] MEDICARE [facility] MEDICARE [employer] Advance Directives For more information, please contact: [phone] Documents on File Type Date Recorded Patient Last Sorter Expl anation ADVANCE DIRECTIVE 03/05/2024 7:22 PM POLST ADVANCE DIRECTIVE 10/17/2021 10:30 AM Val Evans ADVANCE DIRECTIVE 09/30/2019 11:55 AM Pow er of General Passenger Agent-Medical ADVANCE DIRECTIVE 09/30/2019 11:54 AM Pow er of General Passenger Agent-Medical * Full Code (Latest Code Status on File) Date Activated Date Inactivated Comments 08/04/2024 10:35 AM 08/05/2024 4:46 AM * Full Code Date Activated Date Inactivated Comments 06/19/2024 8:30 AM 06/20/2024 4:44 AM * Full Code Date Activated Date Inactivated Comments 02/05/2024 10:40 AM 02/06/2024 4:44 AM * Full Code Date Activated Date Inactivated Comments 12/25/2023 10:06 AM 12/27/2023 7:18 PM * Full Code Date Activated Date Inactivated Comments 11/29/2023 7:03 PM 12/10/2023 9:05 PM Healthcare Agents on File Name Relationship Healthcare Agent Relationshi p Communication Val Nathan Spouse Health Care Agent Marcial Evans Son First Alternate Health Care Agent Care Teams Storage Receipt Poster Relationship Specialty Start Date End Date No, Physician PCP - General 05/26/24
--- OUTSIDE RECORDS SUMMARY | 2024-11-05 19:15 | XMS_ITS | Referral Summary ---
Author Organization [facility] Address [address] [place] [address] Care Team Providers Care Licensed Embalmer Supervisor Name Role Phone No, Physician Primary Care Provider [phone] Encounters Date Type Department Care Team Description 10/22/2024 9:00 AM CUSTOMER ENGAGEMENT ANALYST Office Visit [facility] Orthopaedic Surgery [address] [facility] 12th [place] [address] [place] [address] Joleen Cantor MD Paraplegia (HCC) (Primary Dx); S/P laminectomy with spinal fusion; Injury of thoracic spinal cord, subsequent encounter (HCC); Immobility syndrome (paraplegic); 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, initial encounter (HCC); Neurogenic bladder; Neurogenic bowel; Impaired mobility and ADLs 10/13/2024 8:30 AM CUSTOMER ENGAGEMENT ANALYST - 10/13/2024 11:59 PM CUSTOMER ENGAGEMENT ANALYST Hospital Encounter [facility] Imaging [address] [place] [address] Krista Aleman RN Despins, Kara Lorraine, RN Kassy Birmingham, RT Anjana Gee RN Hydronephrosis with urinary obstruction due to renal calculus Discharge Disposition: Discharge to home or self care 10/10/2024 Telephone [facility] Imaging [address] [place] [address] Leticia Donahue RN 10/09/2024 Telephone [facility] Hematology [address] [facility] Floor 6 [place] [address] Oneyda Kaur, NARENDRA 10/06/2024 Telephone [facility] Radiology [address] [place] [address] Viry Stroud, NARENDRA 09/29/2024 3:40 PM CUSTOMER ENGAGEMENT ANALYST - 09/29/2024 11:59 PM CUSTOMER ENGAGEMENT ANALYST Hospital Encounter [facility] Radiology [facility] Advanced Medicine (CAM) [address] [place] [address] Corina Echavarria MD Bilateral lower extremity edema Discharge Disposition: Discharge to home or self care 09/29/2024 1:00 PM CUSTOMER ENGAGEMENT ANALYST Ancillary Procedure [facility] Vascular Lab at the [facility] Advanced Medicine [address] [place] [address] Advanced Medicine 8th [place] [address] [place] [address] Bilateral lower extremity edema 09/24/2024 Telephone [facility] Imaging [address] [place] [address] Leticia Donahue RN 09/23/2024 10:55 AM CUSTOMER ENGAGEMENT ANALYST - 09/23/2024 11:59 PM CUSTOMER ENGAGEMENT ANALYST Hospital Encounter [facility] Imaging [address] [place] [address] Corina Echavarria MD Noonan, Caitlin Therese, Anjana Delgadillo RN Hydronephrosis with urinary obstruction due to renal calculus Discharge Disposition: Discharge to home or self care 09/22/2024 Telephone [facility] Imaging [address] [place] [address] Leticia Donahue RN 09/17/2024 Telephone [facility] Radiology [address] [place] [address] Viry Stroud, NARENDRA 09/16/2024 Telephone [facility] Imaging [address] [place] [address] Leticia Donahue RN 09/15/2024 10:00 AM CUSTOMER ENGAGEMENT ANALYST Office Visit [facility] Radiology, Interventional Radiology [address] [place] [address] Corina Echavarria MD Bilateral lower extremity edema (Primary Dx) 09/08/2024 Telephone [facility] Radiology [address] [place] [address] Viry Stroud RN 09/08/2024 Orders Only [facility] Surgery [address] [place] [address] Temo Mcintosh MD Hydronephrosis with urinary obstruction due to renal calculus (Primary Dx); Renal failure, unspecified chronicity 09/05/2024 Orders Only [facility] Surgery [address] [place] [address] Temo Mcintosh MD Hydronephrosis with urinary obstruction due to renal calculus (Primary Dx) 09/05/2024 Orders Only [facility] Radiology [address] [place] [address] Meryl Longoria RN 09/04/2024 Telephone [facility] Orthopaedic Surgery [address] [facility] [address] Building [address] [place] [address] Marcial Vu Jr., MD Scheduling Appointments 09/03/2024 Orders Only [facility] Radiology [address] [place] [address] Meryl Longoria RN 09/02/2024 10:13 AM CDT - 09/02/2024 2:42 PM CDT Emergency [facility] Emergency Department [address] [place] [address] Wound of right foot (Primary Dx) Discharge Disposition: Discharge to home or self care 09/01/2024 Telephone [facility] Infectious Diseases [address] [place] [address] [address] [place] [phone] Caitlin Hussein BS 09/01/2024 Orders Only [facility] Radiology [address] [place] [address] Meryl Longoria RN 08/25/2024 Orders Only [facility] Surgery [address] [place] [address] Temo Mcintosh MD Hydronephrosis with urinary obstruction due to renal calculus (Primary Dx) 08/25/2024 Orders Only [facility] Surgery [address] [place] [address] Temo Mcintosh MD Hydronephrosis with urinary obstruction due to renal calculus (Primary Dx) 08/25/2024 3:30 PM CDT Telemedicine [facility] Hematology [address] [facility] [address] [place] [address] Katharine Hampton MD Anticoagulant long-term use (Primary Dx); Personal history of venous thrombosis and embolism; Pulmonary embolism, unspecified chronicity, unspecified pulmonary embolism type, unspecified whether acute cor pulmonale present (HCC) 08/21/2024 Telephone [facility] Surgery [address] [place] [address] Des Gay BS 08/14/2024 3:00 PM CDT Office Visit [facility] Surgery [address] [facility] [address], [address] [place] [address] Corry Lopez NP 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 Advanced Medicine ([facility]) - [facility] Urology [address] [facility] Advanced Medicine 11th [place] [address] [place] [address] Chad Vivas 08/05/2024 Telephone [facility] Radiology 1 [place] [address] Viry Stroud, RN 08/05/2024 Telephone [facility] Radiology 1 [place] [address] Viry Stroud, RN from Last 3 Months Allergies No known active allergies Medications bisacodyL (DULCOLAX) 10 mg suppositoryIndica tions:constipatio n Insert 1 suppository (10 mg total) into the rectum daily as needed for constipation Active furosemide (LASIX) 40 mg tablet Take 1 tablet (40 mg total) by mouth 2 (two) times a day 024 2024 Active Additional Information Patient taking differently:40 mg oralDaily before breakfast, Indications: Edema, Informant: [facility], Reported on 10/22/2024 gabapentin (NEURONTIN) 600 mg tabletIndications :Pain Take 1 tablet (600 mg total) by mouth 3 (three) times a day 024 2024 Active Additional Information Patient taking differently:600 mg oral3 times daily PRN, pain, (No indications reported), Informant: [facility], Reported on 10/22/2024 miconazole 2 % powder Apply topically 2 (two) times a day Active Additional Information Patient taking differently: 1 Applicationtopical 2 times daily,Indications: apply to groin area, Informant: [facility], Reported on 10/22/[address] (PROTONIX) 40 mg EC tabletIndications :Treatment of Non-Bleeding Gastric Disorder Take 1 tablet (40 mg total) by mouth daily 024 2024 Active Additional Information Patient taking differently:40 mg oralEvery morning, Indications: Treatment of Non-Bleeding Gastric Disorder, acid reflux, Informant: [facility], Reported on 10/22/2024 senna-docusate (PERICOLACE) 8.6-50 mg Take 1 tablet by mouth nightly Active Additional Information Patient taking differently:1 tablet oralDaily (early AM), Indications: constipation, Informant: [facility], Reported on 10/22/2024 tamsulosin (FLOMAX) 0.4 mg extended release capsule Take 2 capsules (0.8 mg total) by mouth daily with dinner Active Additional Information Patient taking differently:0.8 mg oral Nightly, 2 tablets, Indications: benign prostatic hyperplasia with lower urinary tract sx, Informant: [facility], Reported on 12/12/2023 cyclobenzaprine (FLEXERIL) [...] 6 hours PRN, pain,(No indications reported), Informant: [facility], Reported on 10/22/2024 multivitamin tabletIndications :wound healing Take 1 tablet by mouth network administrator before breakfast Active metOLazone (ZAROXOLYN) 5 mg tablet Take 1 tablet (5 mg total) by mouth daily Act jania potassium chloride ER 20 mEq CR tabletIndications :supplement Take 1 tablet (20 mEq total) by mouth network administrator before breakfast Active Mounjaro 10 mg/0.5 mL [...] times daily, Indications: bladder spasm/stent pain, Informant: [facility], Reported on 10/22/2024 cetirizine (ZyrTEC) [...] With a large meal 90 tablet 3 024 Active Active Problems Problem Noted Date Diagnosed Date Neurogenic bladder 10/24/2024 Neurogenic bowel 10/24/2024 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 Impaired mobility and ADLs 10/24/2024 Nephrolithiasis 12/25/2023 DVT (deep venous thrombosis) ([facility]) 4 Assessment & Plan (12/10/2023 2:44 PM CUSTOMER ENGAGEMENT ANALYST): Patient with complex history with cardiac arrest [...] 11/29/2023 Assessment & Plan (11/29/2023 7:17 PM CUSTOMER ENGAGEMENT ANALYST): - Stable Hgb ~8 - Maintain Hgb > 7 Paraspinal hematoma 11/29/2023 Assessment & Plan (12/01/2023 12:39 PM CUSTOMER ENGAGEMENT ANALYST): - Occurred on therapeutic anticoagulation in setting of recent lumbar decompression, with subsequent LE paralysis and emergent hematoma evacuation on 11/07 - Directly-admitted from [facility] - PT/OT - Orthopedics following - had sutures removed on 11/30 - note had some drainage from sutures, plan 7-10d course SSTI antibiotics using Bactrim for now - anticoagulation as elsewhere (see DVT ) Hyponatremia 11/29/2023 Assessment & Plan (12/07/2023 11:50 AM CUSTOMER ENGAGEMENT ANALYST): Improved. Na low 130s over the past week, has improved with improved oral intake and remains in normal range with initiation of diuretic therapy. - CTM on lasix Elevated transaminase level 11/29/2023 Assessment & Plan (12/04/2023 11:59 AM CUSTOMER ENGAGEMENT ANALYST): - AST 65, ALT 80, new on arrival- Unclear etiology at this time - possibly from IVC compression/distention in setting of potential thrombi? - Improving - will hold off on further imaging Lower extremity edema 11/29/2023 Assessment & Plan (12/01/2023 12:38 PM CUSTOMER ENGAGEMENT ANALYST): - Eval/mgt per above. NT-proBNP 105. Scrotal swelling 11/29/2023 Assessment & Plan (12/10/2023 2:44 PM CUSTOMER ENGAGEMENT ANALYST): - In setting of presumed DVT - no evidence of infection on exam - Scrotal Sling - Maintain sofia catheter - DVT mgt per above - for edema, will continue IV lasix 40 mg BID, monitor electrolytes - at discharge will discharge on PO lasix 40 mg BID Seizure 11/29/2023 Assessment & Plan (11/29/2023 7:16 PM CUSTOMER ENGAGEMENT ANALYST): - Patient developed reported seizure on 10/23 during or prior to cardiac arrest with bilateral SDH noted on imaging - placed on keppra through follow-up with [facility] next month Prediabetes 11/29/2023 Assessment & Plan (11/29/2023 7:22 PM CUSTOMER ENGAGEMENT ANALYST): - Was on mounjaro as outpatient - has required intermittent SSI at [facility] - Diabetic diet, SSI ordered Kidney stone 11/09/2023 Paraplegia 11/07/2023 Assessment & Plan (11/29/2023 7:15 PM CUSTOMER ENGAGEMENT ANALYST): - Patient with paralysis of LE following recent spinal hematoma s/p emergent evacuation on 11/07 - Ongoing 11/09 strength of LE, sensation intact - Fall precautions Pulmonary embolism 10/26/2023 Assessment & Plan (11/29/2023 7:16 PM CUSTOMER ENGAGEMENT ANALYST): - Eval/mgt per above Assessment & Plan (10/26/2023 5:11 PM CUSTOMER ENGAGEMENT ANALYST): Patient with new PE on CT PE [...] 10/15/2023 Assessment & Plan (10/20/2023 2:57 PM CUSTOMER ENGAGEMENT ANALYST): Likely post procedure complication. Urology following - CT urogram on 10/16 notes presence of L perinephric hematoma - Continue to trend white count, renal function and fever curve Ureteral colic 10/13/2023 UTI (urinary tract infection) 10/13/2023 Assessment & Plan (12/10/2023 2:43 PM CUSTOMER ENGAGEMENT ANALYST): - Patient diagnosed with UTI in setting [...] urology. Assessment & Plan (10/20/2023 2:58 PM CUSTOMER ENGAGEMENT ANALYST): - Complicated UTI with the presence of left ureteral stone and Pyelitis - urine culture grew E-coli which is pansusceptible. - Discussion with urology and orthopedic surgery: continue Keflex 500 mg q6hr as it appears patient will stay in-house until OR on 10/22-10/23 -Antibiotics as above. Hydronephrosis with urinary obstruction due to renal calculus 10/12/2023 Assessment & Plan (12/07/2023 1:48 PM CUSTOMER ENGAGEMENT ANALYST): - Patient with noted progressed hydronephrosis during [...] back Assessment & Plan (10/19/2023 12:54 PM CUSTOMER ENGAGEMENT ANALYST): Presented with generalized weakness with fever and [...] 10/08/2023 Assessment & Plan (10/20/2023 2:57 PM CUSTOMER ENGAGEMENT ANALYST): He has been planned for plan for [...] (10/18/2022): Added automatically from request for surgery [id number] Bladder neck obstruction 10/17/2022 Lesion of urinary bladder 10/17/2022 Prostate cancer 10/17/2022 Assessment & Plan (11/29/2023 7:14 PM CUSTOMER ENGAGEMENT ANALYST): - s/p prostatectomy Assessment & Plan (10/13/2023 5:39 AM CUSTOMER ENGAGEMENT ANALYST): S/p postprostatectomy HTN (hypertension) 10/10/2021 Assessment & Plan (11/29/2023 7:14 PM CUSTOMER ENGAGEMENT ANALYST): - Cont diltiazem - home ARB has been on hold at [facility] - continue to hold here initially Assessment & Plan (10/15/2023 9:11 AM CUSTOMER ENGAGEMENT ANALYST): Hold home irbesartan Restart diltiazem xl Risk factors for obstructive sleep apnea 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) 019 Overview (08/07/2019): Added automatically from request for surgery [id number] Presence of right artificial knee joint 10/25/20 18 Primary osteoarthritis of left knee 10/25/2018 Localized adiposity 07/17/2018 Knee pain 10/24/2016 Immunizations Name Administration Dates Next Due Influenza, [...] PPV23 07/26/2017 Tdap 02/09/2021 ZOSTER Recombinant 05/16/2021,02/18/2021 Social History Tobacco Use Types Packs/Day Years Used Date Smoking Tobacco: Former Cigarettes 1 11 1 969 1979 Passive Smoke Exposure: Never Smokeless Tobacco: Never Tobacco Cessation:Counseling Given: Not Answered Alcohol Use Standard Drinks/Week Comments Yes 14 (1 standard drink = 0.6 oz pu re alcohol) social [facility] Utilities Answer Date Recorded In the past 12 months has e electric, gas, oil, or water company [...] often do you attend chur ch or spiritism services? Never 12/27/2023 Do you belong to any clubs o r organizations such as yazidi groups, unions, fraternal or athletic groups, or [...] place to sleep or slept in a fpc (including now)? No 12/27/2023 Personal Safety Answer Date Recorded Have you ever been in or are you currently in a harmful physical or emotional relationship or is someone making you feel afraid or unsafe? 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 [employer] Not on file Not on file Not on file Last Filed Vital Signs Vital Sign Reading Time Taken Comments Blood Pressure 126/80 10/22/2024 8:54 AM CUSTOMER ENGAGEMENT ANALYST Pulse 67 10/22/2024 8:54 AM CUSTOMER ENGAGEMENT ANALYST Temperature 36.9 ??C (98.5 ??F) 10/13/2024 8:38 AM CS T Respiratory Rate 16 10/13/2024 8:38 AM CUSTOMER ENGAGEMENT ANALYST Oxygen Saturation 98% 10/13/2024 8:38 AM CUSTOMER ENGAGEMENT ANALYST Inhaled Oxygen Concentration - - Weight 90.7 kg (200 lb) 10/22/2024 8:54 AM CUSTOMER ENGAGEMENT ANALYST Height 172.7 cm (5' 8 ) 09/23/2024 11:35 AM CUSTOMER ENGAGEMENT ANALYST Body Mass Index 30.41 09/23/2024 11:35 AM CUSTOMER ENGAGEMENT ANALYST Plan of Treatment Not on file Medical Devices Implanted Type Area Assembler Bicycle Device Identifier Shelf Expiration Date Model / Serial / Lot [employer] 6197-9-010 Simplex P Full Dose Radiopaque Preblend Cement Bone Tobramycin - S0 - [id number] Implanted:Qty: 2 on 09/30/2019 by Fransisco Heard MD at [facility] Bone Cement Right: Knee [employer] [id number] 11/04/2020 6197-9-010 / 0 / [id number] [employer] rtho [id number] Kandace Ii 15mm Constrain Knee 5-6 Insert Articular Uhmwpe - S0 - [id number] Implanted:Qty: 1 on 09/30/2019 by Fransisco Heard MD at [facility] Other - see comments Right: Knee [employer]/ Ortho 03/13/2029 [id number] / 0 / [id number] [employer]O rtho [id number] Legion 10mm Screw Knee 6 Wedge Femoral - S0 - [id number] Implanted:Qty: 1 on 09/30/2019 by Fransisco Heard MD at [facility] Other - see comments Right: Knee [employer] Ortho [id number] 10/04/2022 [id number] / 0 / [employer]/O rtho [id number] Legion Constrain Knee Right 6 Component Femoral Oxinium - S0 - [id number] Implanted:Qty: 1 on 09/30/2019 by Fransisco Heard MD at [facility] Other - see comments Right: Knee [employer]/ Ortho 05/26/2028 [id number] / 0 / [id number] [employer] rtho [id number] Legion 5mm Alcon Step Knee Right Medial Left Lateral 5-6 Wedge - S0 - [id number] Implanted:Qty: 1 on 09/30/2019 by Fransisco Heard MD at [facility] Other - see comments Right: Knee [employer] Ortho [id number] 06/03/2024 [id number] / 0 / [employer]O rtho [id number] Legion 15mm 160mm Press Fit Knee Stem Femoral - S0 - [id number] Implanted:Qty: 1 on 09/30/2019 by Fransisco Heard MD at [facility] Other - see comments Right: Knee [employer] Ortho 01/09/2028 [id number] / 0 / [id number] [employer] rtho [id number] Legion 10mm Screw Knee 6 Wedge Femoral - S0 - [id number] Implanted:Qty: 1 on 09/30/2019 by Fransisco Heard MD at [facility] Other - see comments Right: Knee [employer] Ortho 03/04/2020 [id number] / 0 / [id number] [employer]tho 84696222 Legion Revision Knee Right 5 Baseplate Tibial - S0 - [id number] Implanted:Qty: 1 on 09/30/2019 by Fransisco Heard MD at [facility] Other - see comments Right: Knee [employer] Ortho [id number] 08/28/2026 05154339 / 0 / [id number] [employer] rtho [id number] Legion 15mm 160mm Press Fit Knee Stem Femoral - S0 - [id number] Implanted:Qty: 1 on 09/30/2019 by Fransisco Heard MD at [facility] Other - see comments Right: Knee [employer] Ortho [id number] 06/21/2028 [id number] / 0 / [id number] [employer] 5517-F-501 Triathlon Cruciate Retain Bead Knee Left 5 Component Femoral Pa - Sn/A - [id number] Implanted:Qty: 1 on 10/17/2021 by Laz Nolasco MD at [facility] Other - see comments Left: Knee [employer] [id number] 08/09/2026 5517-F-501 / N/A / [id number] [employer] 5536-B-600 Triathlon Knee 6 Baseplate Tibial Tritanium - Sn/A - [id number] Implanted:Qty: 1 on 10/17/2021 by Laz Nolasco MD at [facility] Other - see comments Left: Knee [employer] [id number] 07/24/2026 5536-B-600 / N/A / [id number] [employer] 8165-H-368-E Insert Tibial Triathlon 6 H10mm Knee Bearing Condylar Stabilize Sterile - Sn/A - [id number] Implanted:Qty: 1 on 10/17/2021 by Laz Nolasco MD at [facility] Other - see comments Left: Knee [employer] [id number] 08/02/2026 5531-G-610 -E / N/A / [id number] Total Joint Bilatera l: Knee [employer] 6197-9-010 Simplex P Full Dose Radiopaque Preblend Cement Bone Tobramycin - [id number] Implanted:Qty: 2 on 09/30/2019 by Fransisco Heard MD at [facility] Right: Knee [employer] [id number] 6197-9-010 / / Allosource Crushed Chip Frozen Graft 30ml Bone Cancellous [id number] - [id number] Implanted:Qty: 1 on 10/23/2023 by Marcial Vu Jr., MD at [facility] N/A: Spine Lumbar [employer] 06/05/2028 55192134 / / [id number] [employer] Inc Allograft Bone Putty 2.5cc 700-025 - [id number] Implanted:Qty: 1 on 10/23/2023 by Marcial Vu Jr., MD at [facility] N/A: Spine Lumbar [employer] [id number] 01/02/2026 700-025 / / [id number] [employer] Creo Od7.5 Mm L55 Mm Thread Polyaxial Spine Screw Bone Titanium 5146.1757 - [id number] Implanted:Qty: 1 on 10/23/2023 by Marcial Vu Jr., MD at [facility] N/A: Spine Lumbar [employer] 5146.1757 / / [employer] Creo Od7.5 Mm L50 Mm Thread Polyaxial Spine Screw Bone Titanium 5146.1752 - [id number] Implanted:Qty: 3 on 10/23/2023 by Marcial Vu Jr., MD at [facility] N/A: Spine Lumbar [employer] 5146.1752 / / [employer] Creo Thread Spinal Cap Locking Nonsterile 1119.0010 - [id number] Implanted:Qty: 4 on 10/23/2023 by Marcial Vu Jr., MD at [facility] N/A: Spine Lumbar [employer] 1119.0010 / / [employer] Implant Spinal Sable 64u33bl 7-14mm 15 Deg 1172.1s - [id number] Implanted:Qty: 1 on 10/23/2023 by Marcial Vu Jr., MD at [facility] N/A: Spine Lumbar [employer] 1172.1S / / [employer] Creo 5.5mm 45mm Curve Daniel Spinal Titanium 1119.7045 - [id number] Implanted:Qty: 2 on 10/23/2023 by Marcial Vu Jr., MD at [facility] N/A: Spine Lumbar [employer] 1119.7045 / / [employer] Rex Tulip Navalign 30mm 7fr 50mm 65cm Introducer Sheath [id number] - [id number] Implanted:Qty: 1 on 11/09/2023 at [facility] [employer] 05/02/2026 [id number] / / [id number] Med[employer]onic Inc Abre 14mm 150mm Self Expand Rotate Thumbwheel Hemostatic Valve [id number] - [id number] Implanted:Qty: 1 on 08/04/2024 at [facility] [employer] Inc 04/18/2027 [id number] 1500 90 / / [id number] Med[employer] Inc Abre 14mm 150mm Self Expand Rotate Thumbwheel Hemostatic Valve [id number] - [id number] Implanted:Qty: 1 on 08/04/2024 at [facility] [employer] Inc 10/10/2026 [id number] 1500 90 / / [id number] Med[employer] Inc Abre 14mm 120mm Self Expand Rotate Thumbwheel Hemostatic Valve [id number] - [id number] Implanted:Qty: 1 on 08/04/2024 at [facility] [employer] Inc 11/25/2026 [id number] 1200 90 / / [id number] Med[employer] Inc Abre 14mm 100mm Self Expand Rotate Thumbwheel Hemostatic Valve [id number] - [id number] Implanted:Qty: 1 on 08/04/2024 at [facility] [employer] Inc 02/19/2027 [id number] 1000 90 / / [id number] Explanted Type Area Assembler Bicycle Device Identifier Shelf Expiration Date Model / Serial / Lot [employer] [id number] 4mm 110mm Pin Fixation Sterile - Sn/A - [id number] Explanted:Qty: 1 on 10/17/2021 by Laz Nolasco MD at [facility] Pin Left: Knee [employer] [id number] / N/A / Description:For provisional purposes only [employer] [id number] 4mm 140mm Knee Straight Pin Fixation Sterile - Sn/A - [id number] Explanted:Qty: 1 on 10/17/2021 by Laz Nolasco MD at [facility] Pin Left: Knee [employer] [id number] / N/A / Description:For provisional purposes only [employer] Universa 6fr 28cm Firm Positioner Monofilament Tether Stent [id number] - [id number] Implanted:Qty: 1 on 10/18/2023 by Gabriel Bennett MD at [facility] Explanted:Qty: 1 on 02/27/2024 at [facility] Stent Left: Ureter [employer] [id number] 05/22/2026 [id number] / / [id number] [employer] [id number] 6fr 26cm 145cm Radiopaque Positioner Filiform Flexible Tip - [id number] Implanted:Qty: 1 on 02/27/2024 by Temo Mcintosh MD at [facility] Explanted:Qty: 1 on 06/06/2024 by Temo Mcintosh MD at [facility] Stent Left: Ureter [employer] [id number] 12/07/2026 [id number] / / [id number] Description:Explanted comple te and intact Procedures Procedure Name Priority Date/Time Associated Diagnosis Comments ABSCESS CATHETER INJECTION Schedule Routine, Read Routine (OP Routine) 10/13/2024 9:20 AM CUSTOMER ENGAGEMENT ANALYST Hydronephrosis with urinary obstruction due to renal calculus CT ABDOMEN PELVIS W CONTRAST Schedule Routine, Read Routine (OP Routine) 09/29/2024 4:48 PM CUSTOMER ENGAGEMENT ANALYST Bilateral lower extremity edema POCT CREATININE - DEVICE Routine 09/29/2024 4:27 PM CUSTOMER ENGAGEMENT ANALYST US VENOUS REFLUX BILATERAL Schedule Routine, Read Routine (OP Routine) 09/29/2024 3:27 PM CUSTOMER ENGAGEMENT ANALYST Bilateral lower extremity edema SUPRAPUBIC CATHETER INSERTION Schedule Routine, Read Routine (OP Routine) 09/23/2024 12:24 PM CUSTOMER ENGAGEMENT ANALYST Hydronephrosis with urinary obstruction due to renal [...] filter LIPID PANEL STAT 10/23/2023 11:02 PM CUSTOMER ENGAGEMENT ANALYST POCT HEMOGLOBIN A1C Routine 10/11/2023 1 1:43 AM CUSTOMER ENGAGEMENT ANALYST from Last 3 Months or Most Recently Relevant to Health Maintenance Results * IR Inject Abscess Catheter (10/13/2024 9:20 AM CUSTOMER ENGAGEMENT ANALYST) Anatomical Region Laterality Modality Body N/A X-Ray Angiograph y 10/13/2024 11:3 7 AM CUSTOMER ENGAGEMENT ANALYST Impressions 10/13/2024 11:37 AM CUSTOMER ENGAGEMENT ANALYST Well-positioned suprapubic catheter. PLAN: Continue to monitor catheter output as well as the patient's clinical condition. ??Patient will be scheduled for exchange 6-8 weeks from time of initial placement. If questions arise, please contact us by calling [phone]. Electronically signed by: Nazario Peterson PA-C Narrative 10/13/2024 11:37 AM CUSTOMER ENGAGEMENT ANALYST EXAMINATION: SUPRAPUBIC CATHETER EVALUATION HISTORY: ??74-year-old male with neurogenic bladder underwent suprapubic catheter placement on 09/23/2024. ??Patient presents today with leakage from the drainage bag as well 3 day history of mild hematuria. PROVIDER PRESENCE: Nazario Peterson PA-C, was present from the beginning to the end of the procedure. ?? SEDATION: ??No sedation TECHNIQUE: Prior to beginning the procedure, Moroni Protocol was used to confirm the patient's identity and planned procedure. Fluoroscopy time has been recorded in the electronic medical record. After obtaining a sugar mixer image, the catheter was injected with dilute [...] sedation TECHNIQUE: Prior to beginning the procedure, Moroni Protocol was used to confirm the patient's identity and planned procedure. Fluoroscopy time has been recorded in the electronic medical record. After obtaining a sugar mixer image, the catheter was injected with dilute [...] questions arise, please contact us by calling [phone]. Electronically signed by: Nazario Peterson PA-C us Corina Echavarria MD IMG IR PROCEDURES Final Re sult * CT Abdomen Pelvis W Contrast (09/29/2024 4:48 PM CUSTOMER ENGAGEMENT ANALYST) Anatomical Region Laterality Modality Body N/A Computed Tomogra phy 09/30/2024 7:58 AM CUSTOMER ENGAGEMENT ANALYST Impressions 09/30/2024 7:58 AM CUSTOMER ENGAGEMENT ANALYST 1. ??Stents extending from the inferior vena [...] Yesica Bennett M.D. Narrative 09/30/2024 7:58 AM CUSTOMER ENGAGEMENT ANALYST EXAMINATION: ??Computed tomography of the abdomen and [...] by: Yesica Bennett M.D. Corina Echavarria MD IM CT PROCEDURES Final Re sult * POCT creatinine (09/29/2024 4:27 PM CUSTOMER ENGAGEMENT ANALYST) Creatinine POC 0.7 0.7 - 1.3 mg/dL Blood 09/29/2024 4:27 PM CUSTOMER ENGAGEMENT ANALYST 09/29/2024 4:27 PM CUSTOMER ENGAGEMENT ANALYST Corina Echavarria MD LAB POCT ORDERABLES - GILBERT CE Final Result [facility] Department [place] [address] * US Venous Reflux Bilateral (09/29/2024 3:27 PM CUSTOMER ENGAGEMENT ANALYST) Anatomical Region Laterality Modality Vascular Bilateral Ultrasound 09/29/2024 2:23 PM CUSTOMER ENGAGEMENT ANALYST Narrative 09/29/2024 7:08 PM CUSTOMER ENGAGEMENT ANALYST [facility] - Department of Vascular Surgery, Vascular Laboratory [address] [place] [address] Lower Extremity Venous Reflux Duplex Report Patient Name: HIRA EVANS WILLIAM : 1950 (74y 3m) Study Date: 09/29/2024 2:23:50 PM Gender: M Tech: Location: [facility] Provider: CORINA ECHAVARRIA Quality: Adequate Order [...] Leg ? Left Leg - FINDINGS: Performing Yarn Spooler: Josiane Chance RVT. Patient positioning: Reflux testing [...] above. Electronically Signed By: Scott Martinez MD [facility] 09/29/2024 7:07:50 PM CUSTOMER ENGAGEMENT ANALYST Procedure Note Scott Martinez MD - 09/29/2024 [facility] - Department of Vascular Surgery,Vascular Laboratory [address] [place] [address] Lower Extremity Venous Reflux Duplex Report Patient Name: HIRA EVANS WILLIAM : 1950 (74y 3m) Study Date: 09/29/2024 2:23:50 PM Gender: M Tech: Location: [facility] Ref Provider: CORINA ECHAVARRIA Quality: Adequate Order [...] Units Right LegLeft Leg - FINDINGS: Performing Yarn Spooler: Josiane Chance RVT. Patient positioning: Reflux testing [...] Scott Martinez MD FACS 09/29/2024 7:07:50 PM CUSTOMER ENGAGEMENT ANALYST us Corina Echavarria MD IMG US PROCEDURES Final Re sult * IR Suprapubic Catheter Insertion (09/23/2024 12:24 PM CUSTOMER ENGAGEMENT ANALYST) Anatomical Region Laterality Modality Body N/A Ultrasound 09/23/2024 12:5 2 PM CUSTOMER ENGAGEMENT ANALYST Impressions 09/23/2024 12:52 PM CUSTOMER ENGAGEMENT ANALYST Successful image guided suprapubic catheter tube placement. PLAN: Routine exchange in 12 weeks. Electronically signed by: Corina Echavarria M.D. Narrative 09/23/2024 12:52 PM CUSTOMER ENGAGEMENT ANALYST EXAMINATION: ??PERCUTANEOUS SUPRAPUBIC CATHETER PLACEMENT HISTORY/INDICATION: ??74-year-old [...] was obtained. ??Prior to beginning the procedure, Moroni Protocol was used to confirm the patient's [...] dilating the tract to ??16 Fr. ??A 16-Upper Sorbian multipurpose cope loop catheter was then advanced [...] was obtained. Prior to beginning the procedure, Moroni Protocol was used to confirm the patient's [...] dilating the tract to 16 Fr. A 16-Upper Sorbian multipurpose cope loop catheter was then advanced [...] Monocyte abs 0.3 0.2 - 0.8 K/cumm [facility] Eosinophil abs 0.3 0.0 - 0.5 K/cumm [facility] Basophil abs 0.0 0.0 - 0.1 K/cumm [facility] Neutrophil pct 46.5 % [facility] MAR[facility]IAG[facility] Comment: Interpretive Data Percent cell count reference ranges are not reported, since discordance with absolute values may lead to misinterpretation of CBC data. Current Interpretive Data was last revised on 2018. Imm gran pct 0.2 % [facility] Comment: Interpretive Data Percent cell count reference ranges are not reported, since discordance with absolute values may lead to misinterpretation of CBC data. Current Interpretive Data was last revised on 2018. Lymphocyte pct 37.5 % [facility] Comment: Interpretive Data Percent cell count reference ranges are not reported, since discordance with absolute values may lead to misinterpretation of CBC data. Current Interpretive Data was last revised on 2018. Monocyte pct 7.9 % [facility] Comment: Interpretive Data Percent cell count reference ranges are not reported, since discordance with absolute values may lead to misinterpretation of CBC data. Current Interpretive Data was last revised on 2018. Eosinophil pct 7.4 % [facility] Comment: Interpretive Data Percent cell count reference ranges are not reported, since discordance with absolute values may lead to misinterpretation of CBC data. Current Interpretive Data was last revised on 2018. Basophil pct 0.5 % [facility] Comment: Interpretive Data Percent cell count reference ranges are not reported, since discordance with absolute values may lead to misinterpretation of CBC data. Current Interpretive Data was last revised on 2018. Blood 09/02/2024 11:1 3 AM CDT 09/02/2024 11:20 AM CDT us Eula Lopez [facility] LAB BLOOD ORDERABLES Fide rick Result [facility] [address] [facility]. [place] [address] * (ABNORMAL) CBC with auto differential (09/02/2024 11:13 AM CDT) WBC 4.3 3.8 - 9.9 K/cumm Hgb 13.4 13.0 - 17.5 g/dL [facility] Hct 39.8 38.9 - 50.3 % [facility] Plt 196 150 - 400 K/cumm [facility] MPV 10.4 9.1 - 12.[address] [facility] RBC 4.12(L) 4.30 - 5.80 M/cumm [facility] MCV 96.6(H) 81.3 - 96.[address] MCH 32.5 27.1 - 33.[address] [facility] MCHC 33.7 32.3 - 35.7 g/dL [facility] RDW CV 11.9 11.1 - 14.9 % [facility] RDW SD 42.3 35.7 - 48.[address] NRBC abs 0.00 0.00 - 0.01 K/cumm [facility] BJ[facility] Blood (Blood, Venous) 09/02/2024 11:13 AM CDT 09/02/2024 11:20 AM CDT us Eula Lopez [facility] LAB BLOOD ORDERABLES Fide l Result [facility] [address] [facility]. Department [place] [address] * Blood culture Blood (09/02/2024 11:13 AM CDT) Report Final Report: No growth Comment:Testing performed by : [facility], [facility] [facility], [place]., [address] Blood 09/02/2024 11:1 3 AM CDT 09/02/2024 12:40 PM CDT Narrative [facility] - 09/07/2024 1:00 PM CUSTOMER ENGAGEMENT ANALYST Collection->Peripheral Interpretive Data 1. Blood cultures are incubated and monitored continuously for 5 days (120 hours). The first negative report is issued within 24 hours of receipt in the laboratory. 2. All positive cultures are resulted and called to physicians/care providers as soon as they are detected. 3. A rapid molecular test for organism identification may be performed using the [employer] FilmArray Blood Culture Identification panel. This assay detects microbial DNA in a blood culture broth. This assay has been cleared by the [facility] Food and Drug Administration and its performance characteristics have been verified by the [facility]. Interpretive data was last revised on December 07, 2022. Eula Weems Lopez [facility] LAB MICROBIOLOGY - GENERA L ORDERABLES Final Result Performing Organization Address City/[facility] Co de Phone Number [facility] [address] [address] [facility]. Department [place] [address] * Blood culture Blood (09/02/2024 11:13 AM CDT) Report Final Report: No growth Comment:Testing performed by : [facility], [address] [place] [address]., [id number] Blood 09/02/2024 11:1 3 AM CDT 09/02/2024 12:40 PM CDT Jesica SANCHEZ [facility] - 09/07/2024 1:00 PM CUSTOMER ENGAGEMENT ANALYST Collection->Peripheral Interpretive Data 1. Blood cultures are incubated and monitored continuously for 5 days (120 hours). The first negative report is issued within 24 hours of receipt in the laboratory. 2. All positive cultures are resulted and called to physicians/care providers as soon as they are detected. 3. A rapid molecular test for organism identification may be performed using the [employer] Blood Culture Identification panel. This assay detects microbial DNA in a blood culture broth. This assay has been cleared by the [place] Food and Drug Administration and its performance characteristics have been verified by the [facility]. Interpretive data was last revised on December 07, 2022. Eula Weems John [facility] LAB MICROBIOLOGY - GENERA L ORDERABLES Final Result Performing Organization Address City/[facility]/ZIP Co de Phone Number [facility] [address] [email or web address]. [facility] [place] [address] * (ABNORMAL) Erythrocyte sedimentation rate (09/02/2024 11:13 AM CDT) Erythrocyte sedimentation rate 39(H) 1 - 20 mm/hr Blood 09/02/2024 11:1 3 AM CDT 09/02/2024 11:20 AM CDT Eula Lopez [facility] LAB BLOOD ORDERABLES Fide l Result Performing Organization Address [facility] Co al Phone Number [facility] [address] [place] [address] * CRP (acute phase) (09/02/2024 11:13 AM CDT) Pathologist [facility] CRP 6.7 <=10.0 mg/L Blood 09/02/2024 11:1 3 AM CDT 09/02/2024 11:20 AM CDT Eula Lopez [facility] LAB BLOOD ORDERABLES Fide l Result Performing Organization Address [facility] Phone Number [facility] [address] [facility]. [facility] [place] [address] * XR Foot Right 3 or More [...] signed by: Jose Enrique Aguirre D.O. Eula Lopez [facility] IMG XR PROCEDURES Final R esult * [...] Echavarria MD LAB BLOOD ORDERABLES Final Result [facility] Department [place] [address] * (ABNORMAL) Lipid panel (10/23/2023 11:02 PM CUSTOMER ENGAGEMENT ANALYST) Cholesterol 162 30 - 199 mg/dL [facility] Comment: Interpretive Data Ages < or = [...] on 2018. Triglycerides 134 <=149 mg/dL [facility] Comment: Interpretive Data Ages < or [...] revised on 2018. HDL 34(L) >=40 mg/dL [facility] Comment: Interpretive Data Ages < or = [...] on 2018. LDL, calculated 101 <=129 mg/dL [facility] Comment: Interpretive Data Ages < or [...] revised on 2018. Non-HDL Cholesterol 128 mg/dL [facility] Comment: Interpretive Data Ages < or [...] last revised on 2018. Chol/HDL ratio 5 [facility] Blood 10/23/2023 11:0 2 PM CUSTOMER ENGAGEMENT ANALYST 10/23/2023 11:14 PM CUSTOMER ENGAGEMENT ANALYST Narrative [facility] - 10/24/2023 11:06 AM CUSTOMER ENGAGEMENT ANALYST This lipid panel was automatically ordered due to a significant change in Troponin. The dietary status of the patient at the collection time should be correlated with the lipid results. us Marcial Vu Jr., MD LAB BLOOD ORDERABLE S Final Result [facility] Department [place] [address] * POCT hemoglobin A1c (10/11/2023 11:43 AM CUSTOMER ENGAGEMENT ANALYST) Hgb A1C, POC 5.5 4.0 - 5.6 % [facility] Est Average Gluc POC 111 mg/dL [facility] Comment: The ADA recommends reporting an estimated Average Glucose (eAG) with all Hemoglobin A1c results using the equation derived from a study of 507 normal and diabetic adults. ??Minority populations were underrepresented and children were not included. ?? (Diabetes Care 31:0946-8305, 2007). ??The eAG is not equivalent to a fasting glucose. Blood 10/11/2023 11:4 3 AM CUSTOMER ENGAGEMENT ANALYST 10/11/2023 11:43 AM CUSTOMER ENGAGEMENT ANALYST Marcial Vu Jr., MD POINT OF CARE TEST ORDERABLES Final Result [facility] Department [place] [address] from Last 3 Months or Most Recently Relevant to Health Maintenance Insurance MEDICARE [employer] [facility] Address: [address] [address] [place] [address] MEDICARE [facility] MEDICARE [employer] [facility] Address: [address] [address] [place] [address] MEDICARE [employer] Advance Directives For more information, please contact: [phone] Documents on File Type Date Recorded Patient Shipper/Receiver Expl anation ADVANCE DIRECTIVE 03/05/2024 7:22 PM POLST ADVANCE DIRECTIVE 10/17/2021 10:30 AM Val Evans ADVANCE DIRECTIVE 09/30/2019 11:55 AM Pow er of Flight Software Test Engineer-Medical ADVANCE DIRECTIVE 09/30/2019 11:54 AM Pow er of Flight Software Test Engineer-Medical * Full Code (Latest Code Status on [...] Relationship Healthcare Agent Relationshi p Communication Val Evans Spouse Health Care Agent Marcial Evans Son First Alternate Health Care Agent Care Teams Licensed Embalmer Supervisor Relationship Specialty Start Date End Date No, Physician PCP - General 05/26/24
--- OUTSIDE RECORDS SUMMARY | 2024-11-05 19:15 | XMS_ITS | Encounter Summary ---
Author Organization [facility] Healthcare Address [address] [place] [address] Care Team Providers Care Nutrition Associate Name Role Phone No, Physician Primary Care Provider [phone] Encounter Details Date Type Department Care Team (Late st Contact Info) Description 10/06/2024 Telephone [facility] Radiology [address] [place] [address] Viry Stroud RN Social History Tobacco Use Types Packs/Day Years Used Date Smoking Tobacco: Former Cigarettes 1 11 969 1979 Passive Smoke Exposure: Never Smokeless Tobacco: Never Alcohol Use Standard Drinks/Week Comments Yes 14 (1 standard drink = 0.6 oz pu re alcohol) social [facility] Utilities Answer Date Recorded In the past 12 months has [employer], gas, oil, or water [employer] threatened to shut off services in your [...] often do you attend chur ch or baptism services? Never 12/27/2023 Do you belong to any clubs o r organizations such as pentecostalism groups, unions, fraternal or athletic groups, or [...] place to sleep or slept in a assisted (including now)? No 12/27/2023 Personal Safety Answer Date Recorded Have you ever been in or are you currently in a harmful physical or emotional relationship or is someone making you feel afraid or unsafe? 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 Crum - Stents are wide open and superficial veins have no reflux. His swelling is likely from chronic deconditioning. Nothing to do. Thanks! Pt's made aware, voiced understanding. Will call as needed. ING APPLICATOR documented in this encounter Plan of Treatment Not on file documented as of this encounter Visit Diagnoses Not on filedocumented in this encounter Care Teams Nutrition Associate Relationship Specialty Start Date End Date No, Physician PCP - General 05/26/24 documented as of this encounter
--- OUTSIDE RECORDS SUMMARY | 2024-11-05 19:15 | XMS_ITS | Encounter Summary ---
Author Organization [facility] Address [address] [place] [address] Phone Care Team Providers Care Hardware Supplies Sales Representative Name Role Phone No, Physician Primary Care Provider [phone] Encounter Details Date Type Department Care Team (Late st Contact Info) Description 10/09/2024 Telephone [place] [id number] [facility] Floor [address] [place] [address] Oneyda Kaur, RN Social History Tobacco Use Types Packs/Day Years Used Date Smoking Tobacco: Former Cigarettes 1 09 05 969 - 1979 Passive Smoke Exposure: Never Smokeless Tobacco: Never Alcohol Use Standard Drinks/Week Comments Yes 14 (1 standard drink = 0.6 oz pu re alcohol) social [facility] Utilities Answer Date Recorded In the past 12 months has [employer], gas, oil, or water [employer] threatened to shut off services in your [...] often do you attend chur ch or holiness services? Never 12/27/2023 Do you belong to any clubs o r organizations such as anglican groups, unions, fraternal or athletic groups, or [...] place to sleep or slept in a alf (including now)? No 12/27/2023 Personal Safety Answer Date Recorded Have you ever been in or are you currently in a harmful physical or emotional relationship or is someone making you feel afraid or unsafe? 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 Calling to clarify if patient should restart his Xarleto. Xarelto was held starting 09/16 for suprapubic catheter placement. It was never restarted post procedure. LMOV for Carey ([phone]). Advised patient should be on Xarelto currently. Call back number given. K EXTRUDER OPERATOR documented in this encounter Plan of Treatment Not on file documented as of this encounter Visit Diagnoses Not on filedocumented in this encounter Care Teams Hardware Supplies Sales Representative Relationship Specialty Start Date End Date No, Physician PCP - General 05/26/24 documented as of this encounter
--- OUTSIDE RECORDS SUMMARY | 2024-11-05 19:16 | XMS_ITS | Encounter Summary ---
Author Organization [facility] Address [address] [place] [address] Phone Care Team Providers Care Lecturer Of Portuguese Name Role Phone No, Physician Primary Care Provider [phone] Reason for Visit * Diagnostic Imaging (Routine) - Closed Specialty Diagnoses / Procedures Referred By Manisha gale Referred To Contact Diagnoses Bilateral lower extremity edema Procedures US Venous Reflux Bilateral Corina Crum MD [address] [facility] [address] [place] [address] Phone: tel: fax: [address] [address] Referral ID Status Reason Start Date Expiration Date Visits Re quested Visits Authorized [id number] Closed 09/15/2024 10/15/2025 1 1 Encounter Details Date Type Department Care Team (Latest Contact Info) Description 09/29/2024 1:00 PM SPECTROGRAPH OPERATOR Ancillary Procedure [facility] [address] [facility] 8th [place] [address] [place] [address] Bilateral lower extremity edema Social History Tobacco Use Types Packs/Day Years Used Date Smoking Tobacco: Former Cigarettes 1 11 1 969 - 1979 Passive Smoke Exposure: Never Smokeless Tobacco: Never Alcohol Use Standard Drinks/Week Comments Yes 14 (1 standard drink = 0.6 oz pu re alcohol) social C Utilities Answer Date Recorded In the past 12 months has [employer] gas, oil, or water [employer] threatened to shut off services in your [...] often do you attend chur ch or quaker services? Never 12/27/2023 Do you belong to [...] place to sleep or slept in a long-term (including now)? No 12/27/2023 Personal Safety Answer Date Recorded Have you ever been in or are you currently in a harmful physical or emotional relationship or is someone making you feel afraid or unsafe? 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 Not on file Not on file documented as of this encounter Plan of Treatment Not on file documented as of this encounter Procedures Procedure Name Priority Date/Time Associated Diagnosis Comments US VENOUS REFLUX BILATERAL Schedule Routine, Read Routine (OP Routine) 09/29/2024 3:27 PM SPECTROGRAPH OPERATOR Bilateral lower extremity edema documented in this encounter Results * US Venous Reflux Bilateral (09/29/2024 3:27 PM SPECTROGRAPH OPERATOR) Anatomical Region Laterality Modality Vascular Bilateral Ultrasound 09/29/2024 2:23 PM SPECTROGRAPH OPERATOR Narrative 09/29/2024 7:08 PM SPECTROGRAPH OPERATOR [facility] - Department of Vascular Surgery, Vascular Laboratory [address] [place] [address] Lower Extremity Venous Reflux Duplex Report Patient Name: HIRA EVANS WILLIAM : 1950 (74y 3m) Study Date: 09/29/2024 2:23:50 PM Gender: M Tech: AC Location: [facility] Ref Provider: CORINA CRUM Quality: Adequate Order Provider: CORINA CRUM PROCEDURES: Vascular Report: Lower extremity venous valvular [...] Leg ? Left Leg - FINDINGS: Performing Bistro Attendant: Josiane Chance RVT. Patient positioning: Reflux testing [...] Scott Martinez MD FACS 09/29/2024 7:07:50 PM SPECTROGRAPH OPERATOR Procedure Note Scott Martinez MD - 09/29/2024 [facility] - Department of Vascular Surgery,Vascular Laboratory [address] [place] [address] Lower Extremity Venous Reflux Duplex Report Patient Name: HIRA EVANS WILLIAM : 1950 (74y 3m) Study Date: 09/29/2024 2:23:50 PM Gender: M Tech: Location: [facility] Provider: CORINA CRUM Quality: Adequate Order Provider: CORINA CRUM PROCEDURES: Vascular Report: Lower extremity venous valvular [...] Units Right LegLeft Leg - FINDINGS: Performing Bistro Attendant: Josiane Chance RVT. Patient positioning: Reflux testing [...] above. Electronically Signed By: Scott Martinez MD [facility] 09/29/2024 7:07:50 PM SPECTROGRAPH OPERATOR us Corina Crum MD IMG US PROCEDURES Final Re sult documented in this encounter Visit Diagnoses Diagnosis Bilateral lower extremity edema documented in this encounter Care Teams Lecturer Of Portuguese Relationship Specialty Start Date End Date No, Physician PCP - General 05/26/24 documented as of this encounter
--- OUTSIDE RECORDS SUMMARY | 2024-11-05 19:16 | XMS_ITS | Encounter Summary ---
Author Organization [facility] Address [address] [place] [address] Care Team Providers Care Dinkey Press Operator Name Role Phone No, Physician Primary Care Provider [phone] Reason for Referral * Diagnostic Imaging (Routine) - Closed Specialty Diagnoses / Procedures Referred By Contac t Referred To Contact Radiology Diagnoses Hydronephrosis with urinary obstruction due to renal calculus Procedures IR Suprapubic Catheter Insertion Consult to Interventional Radiology Temo Mcintosh MD [address] [facility] [place] [address] Phone: tel: fax: [place] [address] [place] [address] Referral ID Status Reason Start Date Expiration Date Visits Re quested Visits Authorized [id number] Closed 09/05/2024 10/05/2025 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 Reason for Visit * Diagnostic Imaging (Routine) - Closed Specialty Diagnoses / Procedures Referred By Contac t Referred To Contact Radiology Diagnoses Hydronephrosis with urinary obstruction due to renal calculus Procedures IR Suprapubic Catheter Insertion Consult to Interventional Radiology Temo Mcintosh MD [address] [facility] [place] [address] Phone: tel: fax: [place] [address] [phone] Referral ID Status Reason Start Date Expiration Date Visits Re quested Visits Authorized [id number] Closed 09/05/2024 10/05/2025 1 1 Encounter Details Date Type Department Care Team (Late st Contact Info) Description 09/23/2024 10:[address] OILING TRUCK DRIVER - 09/23/2024 11:[address] OILING TRUCK DRIVER Hospital Encounter [facility] Imaging [address] [address] Milan Crum MD [address] [facility] [address] [place] [address] Heidi Kaminski RN Clark, Christina, RN Hydronephrosis with urinary obstruction due to renal calculus Discharge Disposition: Discharge to home or self care Social History Tobacco Use Types Packs/Day Years Used Date Smoking Tobacco: Former Cigarettes 1 11 [id number] Passive Smoke Exposure: Never Smokeless Tobacco: Never Alcohol Use Standard Drinks/Week Comments Yes 14 (1 standard drink = 0.6 oz pu re alcohol) social [employer] Utilities Answer Date Recorded In the past 12 months has [employer], gas, oil, or water [employer] threatened to shut off services in your [...] often do you attend chur ch or zoroastrianism services? Never 12/27/2023 Do you belong to any clubs o r organizations such as confucianist groups, unions, fraternal or athletic groups, or [...] place to sleep or slept in a care home (including now)? No 12/27/2023 Personal Safety Answer Date Recorded Have you ever been in or are you currently in a harmful physical or emotional relationship or is someone making you feel afraid or unsafe? 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 Not on file Not on file documented as of this encounter Last Filed Vital Signs Vital Sign Reading Time Taken Comments Blood Pressure 150/72 09/23/2024 12:[address] OILING TRUCK DRIVER Pulse 80 09/23/2024 12:[address] OILING TRUCK DRIVER Temperature 36.8 ??C (98.3 ??F) 09/23/2024 11:[address] Respiratory Rate 16 09/23/2024 12:[address] OILING TRUCK DRIVER Oxygen Saturation 100% 09/23/2024 12:[address] OILING TRUCK DRIVER Inhaled Oxygen Concentration - - Weight 86.2 kg (190 lb) 09/23/2024 11:[address] OILING TRUCK DRIVER Height 172.7 cm (5' 8 ) 09/23/2024 11:[address] OILING TRUCK DRIVER Body Mass Index 28.89 09/23/2024 11:[address] OILING TRUCK DRIVER documented in this encounter Discharge Instructions * Discharge Instructions* Milan Crum MD - 09/23/2024 12:[address] OILING TRUCK DRIVER Interventional Radiology Outpatient Discharge Instructions/Note Diagnosis: Neurogenic bladder Procedure: Suprapubic catheter placement Limitations: [] No lifting greater than 5 pounds with [] Right [] Left arm for 7 days. [] You received medication that may affect [...] Procedure Site Care: [] teaching sheet given [] Skin glue was used to close your incision. See teaching sheet. [x] Keep site clean and dry. [x] You may bathe or shower tomorrow. [x] Change the dressing daily and if it becomes wet or dirty. [x] Cover entire area with plastic and tape down edges before showering to keep site clean and dry. [] The suture at your dialysis access site may be removed by the dialysis staff on ___/___/___ (date). Drainage Tube Care: [] Flush tube with [] 5ml Normal Saline [] 10 ml Normal Saline [] Other: [] Flush tube [] once a day [] Other: [] Record drainage output every day. [] Your tube is capped. Uncap the tube after or if severe pain or fever develops. (Please see teaching sheet). [x] Call Interventional Radiology if there is leakage around the tube or the tube stops draining. To contact an Interventional Radiologist at [facility] call [phone] Sunday through Sunday from 7:30am-4:30pm. At all other times call [phone] and ask that the Interventional Radiologist be paged. To contact an Interventional Radiologist at [facility] call [phone] Sunday through Sunday from 7:30am-3:30pm. Special instructions: Please call Interventional Radiology for any procedure related questions or problems including: Extreme swelling or bruising at the site. Unusual drainage or bleeding from procedure site. Fever of 101.5 F for more than 24 hours. Severe procedure related pain. Follow up care: [] Return to Interventional Radiology on at Please come to: [] 3rd Floor [facility] [] 4th floor [facility] [] [facility] [] [facility] Please call [phone] to schedule a follow up appointment. You need to return in OILING TRUCK DRIVER documented in this encounter Medications at Time [...] ound healing Take 1 tablet by mouth it senior software engineer java before breakfast ondansetron ODT (ZOFRAN-ODT) 4 mg [...] 1 tablet (20 mEq total) by mouth it senior software engineer java before breakfast 4 senna-docusate (PERICOLACE) 8.6-50 mg [...] encounter Miscellaneous Notes * Post-Procedure Note - Milan Crum MD - 09/23/2024 12:[address] OILING TRUCK DRIVER Radiology Brief Post Procedure Note Attending: Radames Farm Hand: None Sedation/Anesthesia: Min Sedation Pre-Op/Pre-Procedure Diagnosis: Neurogenic bladder Post-Op/Post-Procedure Diagnosis: As above Procedure Performed: Suprapubic catheter placement Procedure Findings: Thickened urinary bladder wall Successful 16Fr MP cope loop suprapubic catheter placement into the bladder lumen Complications: None Estimated Blood Loss: < 30 ml Specimens: None Condition: Stable Full report to follow. Milan Crum MD spice blender and Surgery Vascular and Interventional Radiology Section [facility] of [facility] in [place] OILING TRUCK DRIVER * Pre-Procedure Note - Milan Crum MD - 09/23/2024 12:[address] OILING TRUCK DRIVER Radiology Short Sedation Form Indication: Long-term Harris in place; hydronephrosis Planned Procedure: Suprapubic catheter placement Planned Sedation/Anesthesia: minimal sedation Adjunctive Procedures: NONE History of Sedation/Anesthesia Complications: No See H&P dated 09/15/2024 for details of history, review of systems, physical exam, labs, imaging data and assessment. Changes in patient condition since prior assessment: none Most Recent Vitals: Vitals: 09/23/24 1132 BP: 162/77 Pulse: 79 Resp: 16 Temp: 36.8 ??C (98.3 ??F) SpO2: 99% Airway assessment: normal ASA Score: ASA 3 - Patient with moderate systemic disease with functional limitations NPO time: after midnight Benefits, risks and alternatives of procedure and planned sedation have been discussed with the patient and/or their airline security representative. All questions answered and they agree to proceed. Milan Crum MD spice blender and Surgery Vascular and Interventional Radiology Section [facility] in [place] OILING TRUCK DRIVER documented in this encounter Plan of Treatment Not on file documented as of this encounter Procedures Procedure Name Priority Date/Time Associated Diagnosis Comments SUPRAPUBIC CATHETER INSERTION Schedule Routine, Read Routine (OP Routine) 09/23/2024 12:[address] OILING TRUCK DRIVER Hydronephrosis with urinary obstruction due to renal calculus documented in this encounter Results * IR Suprapubic Catheter Insertion (09/23/2024 12:[address] OILING TRUCK DRIVER) Anatomical Region Laterality Modality Body N/A Ultrasound 09/23/2024 12:[address] OILING TRUCK DRIVER Impressions 09/23/2024 12:[address] OILING TRUCK DRIVER Successful image guided suprapubic catheter tube placement. PLAN: Routine exchange in 12 weeks. Electronically signed by: Milan Crum M.D. Narrative 09/23/2024 12:[address] OILING TRUCK DRIVER EXAMINATION: ??PERCUTANEOUS SUPRAPUBIC CATHETER PLACEMENT HISTORY/INDICATION: ??74-year-old male with neurogenic bladder requiring long-term Harris catheter but requesting a suprapubic catheter tube placement now ATTENDING PRESENCE: Milan Crum M.D., the attending radiologist was present from [...] was obtained. ??Prior to beginning the procedure, [place] Protocol was used to confirm the patient's [...] dilating the tract to ??16 Fr. ??A 16-Guamanian multipurpose cope loop catheter was then advanced [...] catheter within the bladder lumen. Procedure Note Milan Crum MD - 09/23/2024 EXAMINATION: PERCUTANEOUS SUPRAPUBIC CATHETER PLACEMENT HISTORY/INDICATION: 74-year-old male with neurogenic bladder requiring long-term Harris catheter but requesting a suprapubic catheter tube placement now ATTENDING PRESENCE: Milan Crum M.D., the attending radiologist was present from [...] was obtained. Prior to beginning the procedure, [place] Protocol was used to confirm the patient's [...] dilating the tract to 16 Fr. A 16-Guamanian multipurpose cope loop catheter was then advanced [...] exchange in 12 weeks. Electronically signed by: Milan Crum M.D. Temo Mcintosh MD IMG IR PROCEDURES Final Result documented in this encounter Visit Diagnoses Diagnosis Hydronephrosis with urinary obstruction due to renal calculus documented in this encounter Administered Medications Inactive Administered Medications - up to 3 most recent administrations Medication Order MAR Action Action Date Dose Rate Site fentaNYL (SUBLIMAZE) preservative free injection intravenous, As needed, Starting on Sun09/23/24 at 1215, Intra-Op Given 09/23/2024 12:[address] OILING TRUCK DRIVER 50 mcg Given 09/23/2024 12:[address] OILING TRUCK DRIVER 50 mcg iothalamate meglumine (CONRAY) 60 % injection 10 mL 10 mL, intra-catheter, Once in imaging, contrast, Starting on Sun09/23/24 at 1224, For 1 dose Contrast Given 09/23/2024 12:[address] OILING TRUCK DRIVER 10 mL lidocaine (PF) (XYLOCAINE) 10 mg/mL (1 %) preservative free injection As needed, Starting on Sun09/23/24 at 1215, Intra-Procedure (IR), Indications: Administration of Local AnesthesiaIndications:Admini stration of Local Anesthesia Given 09/23/2024 12:[address] OILING TRUCK DRIVER 10 mL Abdominal Tissue midazolam (VERSED) 1 mg/mL injection As needed, Starting on Sun09/23/24 at 1215, Intra-Op Given 09/23/2024 12:[address] OILING TRUCK DRIVER 1 mg Given 09/23/2024 12:[address] OILING TRUCK DRIVER 1 mg sodium chloride 0.9% infusion intravenous, Continuous PRN, Starting on Sun09/23/24 at 1202, Intra-Op New Bag 09/23/2024 12:[address] OILING TRUCK DRIVER 100 mL/hr 100 mL/hr documented in this encounter Orders Discharge Count Last Ordered Date First Orde red Date DISCHARGE PATIENT 1 09/23/2024 documented in this encounter Care Teams Dinkey Press Operator Relationship Specialty Start Date End Date No, Physician PCP - General 05/26/24 documented as of this encounter
--- OUTSIDE RECORDS SUMMARY | 2024-11-05 19:16 | XMS_ITS | Encounter Summary ---
Author Organization [facility] Healthcare Address [address] [place] [address] Care Team Providers Care Pony Cylinder Press Operator Name Role Phone No, Physician Primary Care Provider [phone] Encounter Details Date Type Department Care Team (Late st Contact Info) Description 07/31/2024 Telephone [facility] Radiology [address] [place] [address] Apple Henry RN Social History Tobacco Use Types Packs/Day Years Used Date Smoking Tobacco: Former Cigarettes 1 11 969 1979 Passive Smoke Exposure: Never Smokeless Tobacco: Never Alcohol Use Standard Drinks/Week Comments Yes 14 (1 standard drink = 0.6 oz pu re alcohol) social [employer] Utilities Answer Date Recorded In the past 12 months has [employer], gas, oil, or water [employer] threatened to shut off services in your [...] often do you attend chur ch or nondenominational services? Never 12/27/2023 Do you belong to any clubs o r organizations such as hinduism groups, unions, fraternal or athletic groups, or school groups? No 12/27/2023 How often do you attend meet ings of the clubs or organizations you belong to? Never 12/27/2023 Are you , , di vorced, , never , or living with a partner? 12/27/2023 AUDIT-C Answer Date Recorded Q1: How often do you have a drink containing alcohol? 4 or more times a week 06/19/2024 Q2: How many drinks containi ng alcohol do you have on a typical day when you are drinking? 1 or 2 Q3: How often do you have si x or more drinks on one occasion? Never 06/19/2024 Overall Financial Resource Strain (CARDIA) Answe r [...] place to sleep or slept in a prison (including now)? No 12/27/2023 Personal Safety Answer Date Recorded Have you ever been in or are you currently in a harmful physical or emotional relationship or is someone making you feel afraid or unsafe? 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 Not on file Not on file documented as of this encounter Miscellaneous Notes * Telephone Encounter - Apple Henry RN - 07/31/2024 10:06 AM CDT Preprocedure Phone Call Procedure Time Verified: Yes Arrival Time Verified: Yes Procedure Location Verified: Yes Medical History Reviewed: Yes NPO Status Reinforced: Yes Ride and Caregiver Arranged: Yes Ride Caregiver Provider: Patient Knows to Bring Current Medications: Yes Patient Knows to Bring CPAP: No Is Patient on Home Ventilator?: No Is Patient on Blood Thinners?: Yes documented in this encounter Plan of Treatment Not on file documented as of this encounter Visit Diagnoses Not on filedocumented in this encounter Care Teams Pony Cylinder Press Operator Relationship Specialty Start Date End Date No, Physician PCP - General 05/26/24 documented as of this encounter
--- OUTSIDE RECORDS SUMMARY | 2024-11-05 19:16 | XMS_ITS | Encounter Summary ---
Author Organization [facility] Address [address] [facility] [address] [place] [address] Phone Care Team Providers Care Registered Radiation Therapist Name Role Phone No, Physician Primary Care Provider [phone] Encounter Details Date Type Department Care Team (Late st Contact Info) Description 08/25/2024 Orders Only [facility] Surgery [address] [place] [address] Temo Mcintosh MD [address] [facility] [place] [address] Hydronephrosis with urinary obstruction due to renal calculus (Primary Dx) Social History Tobacco Use Types Packs/Day Years Used Date Smoking Tobacco: Former Cigarettes 1 11 969 - 1979 Passive Smoke Exposure: Never Smokeless Tobacco: Never Alcohol Use Standard Drinks/Week Comments Yes 14 (1 standard drink = 0.6 oz pu re alcohol) social C Utilities Answer Date Recorded In the past 12 months has [employer], gas, oil, or water [employer] threatened to shut off services in your [...] week 12/27/2023 How often do you attend [facility] or yarsani services? Never 12/27/2023 Do you belong to any clubs o r organizations such as christianity groups, unions, fraternal or athletic groups, or [...] place to sleep or slept in a halfway (including now)? No 12/27/2023 Personal Safety Answer Date Recorded Have you ever been in or are you currently in a harmful physical or emotional relationship or is someone making you feel afraid or unsafe? 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
--- OUTSIDE RECORDS SUMMARY | 2024-11-05 19:16 | XMS_ITS | Encounter Summary ---
Author Organization [facility] Address [address] [place] [address] Phone Care Team Providers Care Director Of Field Service Name Role Phone No, Physician Primary Care Provider [phone] Reason for Visit * Reason Onset Date Comments Scheduling Appointments 09/04/2024 Encounter Details Date Type Department Care Team (Late st Contact Info) Description 09/04/2024 Telephone [facility] Orthopaedic Surgery [address] [facility] Medical Office Building [address] [place] [address] Marcial Vu Jr., MD [facility] [place] [address] Scheduling Appointments Social History Tobacco Use Types Packs/Day Years Used Date Smoking Tobacco: Former Cigarettes 1 09 05 969 - 1979 Passive Smoke Exposure: Never Smokeless Tobacco: Never Alcohol Use Standard Drinks/Week Comments Yes 14 (1 standard drink = 0.6 oz pu re alcohol) social [facility] Utilities Answer Date Recorded In the past 12 months has [employer], gas, oil, or water company threatened to [...] any clubs o r organizations such as christian groups, unions, fraternal or athletic groups, or [...] place to sleep or slept in a senior care (including now)? No 12/27/2023 Personal Safety Answer Date Recorded Have you ever been in or are you currently in a harmful physical or emotional relationship or is someone making you feel afraid or unsafe? 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 Vu being out of town. Appt moved to 10/09. documented in this encounter Plan of Treatment Not on file documented as of this encounter Visit Diagnoses Not on filedocumented in this encounter Care Teams Director Of Field Service Relationship Specialty Start Date End Date No, Physician PCP - General 05/26/24 documented as of this encounter
--- OUTSIDE RECORDS SUMMARY | 2024-11-05 19:16 | XMS_ITS | Encounter Summary ---
Author Organization [facility] Address [address] [facility] [address] [place] [address] Phone Care Team Providers Care Market Development Manager Name Role Phone No, Physician Primary Care Provider [phone] Encounter Details Date Type Department Care Team (Late st Contact Info) Description 08/25/2024 Orders Only [facility] Surgery [address] [place] [address] Temo Mcintosh MD [address] [facility] [place] [address] Hydronephrosis with urinary obstruction due to renal calculus (Primary Dx) Social History Tobacco Use Types Packs/Day Years Used Date Smoking Tobacco: Former Cigarettes 1 11 969 - 1979 Passive Smoke Exposure: Never Smokeless Tobacco: Never Alcohol Use Standard Drinks/Week Comments Yes 14 (1 standard drink = 0.6 oz pu re alcohol) social C Utilities Answer Date Recorded In the past 12 months has [employer], gas, oil, or water [employer] threatened to shut off services in your [...] week 12/27/2023 How often do you attend [facility] or jewish services? Never 12/27/2023 Do you belong to any clubs o r organizations such as mu-ism groups, unions, fraternal or athletic groups, or [...] place to sleep or slept in a fdc (including now)? No 12/27/2023 Personal Safety Answer Date Recorded Have you ever been in or are you currently in a harmful physical or emotional relationship or is someone making you feel afraid or unsafe? 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
--- OUTSIDE RECORDS SUMMARY | 2024-11-05 19:16 | XMS_ITS | Encounter Summary ---
Author Organization [facility] Address [address] [place] [address] Care Team Providers Care Floor Sander Name Role Phone No, Physician Primary Care Provider [phone] Encounter Details Date Type Department Care Team (Late st Contact Info) Description 09/05/2024 Orders Only [facility] Radiology [address] [place] [address] Meryl Longoria RN Social History Tobacco Use Types Packs/Day Years Used Date Smoking Tobacco: Former Cigarettes 1 11 969 1979 Passive Smoke Exposure: Never Smokeless Tobacco: Never Alcohol Use Standard Drinks/Week Comments Yes 14 (1 standard drink = 0.6 oz pu re alcohol) social C Utilities Answer Date Recorded In the past 12 months has [employer], gas, oil, or water [employer] threatened to shut off services in your [...] often do you attend chur ch or latter day services? Never 12/27/2023 Do you belong to any clubs o r organizations such as bahai groups, unions, fraternal or athletic groups, or [...] place to sleep or slept in a residential (including now)? No 12/27/2023 Personal Safety Answer Date Recorded Have you ever been in or are you currently in a harmful physical or emotional relationship or is someone making you feel afraid or unsafe? 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
--- OUTSIDE RECORDS SUMMARY | 2024-11-05 19:16 | XMS_ITS | Encounter Summary ---
Author Organization [facility] Address [address] [place] [address] Phone Care Team Providers Care Carton Making Machine Operator Name Role Phone No, Physician Primary Care Provider [phone] Encounter Details Date Type Department Care Team (Late st Contact Info) Description 08/21/2024 Telephone [facility] Surgery [address] [place] [address] Des Gay BS Social History Tobacco Use Types Packs/Day Years Used Date Smoking Tobacco: Former Cigarettes 1 09 05 969 - 1979 Passive Smoke Exposure: Never Smokeless Tobacco: Never Alcohol Use Standard Drinks/Week Comments Yes 14 (1 standard drink = 0.6 oz pu re alcohol) social [facility] Utilities Answer Date Recorded In the past 12 months has [employer], gas, oil, or water [employer] threatened to shut off services in your [...] often do you attend chur ch or mormon services? Never 12/27/2023 Do you belong to any clubs o r organizations such as yarsani groups, unions, fraternal or athletic groups, or [...] place to sleep or slept in a nursing home (including now)? No 12/27/2023 Personal Safety Answer Date Recorded Have you ever been in or are you currently in a harmful physical or emotional relationship or is someone making you feel afraid or unsafe? 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 I didn't see an orderplaced by Corry or Dr. Mcintosh she said she was referred tbzack Wheatley to see Dr. Irene for SPT. I advised her that IR would be the people placing the tube but I don't that this was recommend I think that this is something his wants a consult for. Can someone advise pt as to next steps. Thanks Patient Provider:Dr. Teto [facility] Medical/Surgical Information: Outcome/Plan: documented in this encounter Plan of Treatment Not on file documented as of this encounter Visit Diagnoses Not on filedocumented in this encounter Care Teams Carton Making Machine Operator Relationship Specialty Start Date End Date No, Physician PCP - General 05/26/24 documented as of this encounter
--- OUTSIDE RECORDS SUMMARY | 2024-11-05 19:16 | XMS_ITS | Encounter Summary ---
Author Organization [facility] Address [address] [place] [address] Phone Care Team Providers Care Drum Sprayer Name Role Phone No, Physician Primary Care Provider [phone] Encounter Details Date Type Department Care Team (Latest Contact Info) Description 08/25/2024 3:30 PM CDT Telemedicine [facility] Hematology [address] [facility] [address] [place] [id number] Katharine Hampton MD [address] [place] [address] Anticoagulant long-term use (Primary Dx); Personal history of venous thrombosis and embolism; Pulmonary embolism, unspecified chronicity, unspecified pulmonary embolism type, unspecified whether acute cor pulmonale present (HCC) Social History Tobacco Use Types Packs/Day Years Used Date Smoking Tobacco: Former Cigarettes 1 11 969 - 1979 Passive Smoke Exposure: Never Smokeless Tobacco: Never Alcohol Use Standard Drinks/Week Comments Yes 14 (1 standard drink = 0.6 oz pu re alcohol) social [facility] Utilities Answer Date Recorded In the past 12 months has [employer], gas, oil, or water [employer] threatened to shut off services in your [...] often do you attend chur ch or latter-day services? 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 This was a telemedicine visit with Hira Evans and his which took place via TelephoneConfidentiality reason/Patient Privacy( Our adolescent medicine population) and Connectivity Issues/Session drops and unable to re- establish connection. During the visit, I was located in the office and the patient was located at his residence in the [facility]. The patient visit started at 407 pmand ended at 415 pm. My total encounter time on 08/25/2024 was 20 minutes which was spent in the activities documented in the note. This includes time spent prior to the visit and after the visit in direct care of the patient. This time does not include time spent in any separately reportable services. The patient: has been informed that the visit may not be secure and acknowledged the information. After being given an opportunity to ask questions about and discuss this type of visit, they verballyconsented to proceeding with the telephone/video visit and understand that this service replaces anoffice visit. PATIENT NAME: Hira Evans : 1950 DATE OF SERVICE: 08/25/2024 HEMATOLOGIC HISTORY: 1. Posterior lumbar laminectomy and spinal fusion 10/23/2023 2. PEA arrest 10/23/2023. Required 2 minutes CPR and 1 dose of epinephrine after which he achieved [place] 3. CT PE protocol 10/23/2023: Acute bilateral pulmonary emboli involving the distal right and left main pulmonary arteries extending into all bilateral lobar and multiple bilateral segmental pulmonary arteries. No CT evidence of right heart strain. 4. CT of the head noncontrast 10/23/2023: Small subdural hematoma 5. There was a delay in anticoagulant therapy given the above. He was eventually started on heparindrip 10/25/2023. He was eventually discharged home on enoxaparin. He was improving at home, howeversubsequently developed lower extremity weakness. 6. 11/08/2023: Found to have epidural hematoma at the level of T5-L5 leading to spinal cord injury. 7. 11/08/2023 taken to the OR for emergent decompression 8. Venous duplex ultrasound bilateral lower extremities 11/09/2023: No evidence of acute DVT in thebilateral lower extremities 9. Temporary IVC filter placed 11/09/2023 given the need to hold anticoagulant therapy 10. Repeat CT PE protocol 11/09/2023: Decreasing burden of pulmonary emboli. 11. The above complicated by hemiparesis. 12. Repeat venous duplex ultrasound bilateral lower extremities 11/30/2023: Right lower extremity with acute DVT involving the right common femoral vein, profunda femoral vein, femoral vein, popliteal vein, posterior tibial veins and peroneal veins. Left lower extremity with acute DVT involving thecommon femoral vein, profunda femoral vein, femoral vein, popliteal vein, posterior tibial veins and peroneal vein. 13. Given the above, he was admitted to the hospital and reinitiated on heparin drip. He was eventually transitioned to enoxaparin 80 mg every 12 hours and discharge. He was admitted to a rehabilitation facility who subsequently discontinued his anticoagulant therapy. 14. Repeat venous duplex ultrasound 02/07/2024: Both common femoral, superficial femoral, popliteal, peroneal, and his left posterior tibial veins were distended consistent with acute deep vein thrombosis. 15. Given the above he was initiated on rivaroxaban 20 mg daily following a loading dose. 16. I saw the patient for consultation 04/11/2024 at which time he had a significant amount of persistent lower extremity edema. We referred him to Interventional Radiology. 17. Patient underwent venogram 08/04/2024. 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 Recommended enoxaparin for 30 days following intervention. He is able to switch back to his direct oral ant icoagulant September 03, 2024. INTERVAL HISTORY: Mr. Evans is a 74 y.o.year old male who returns today for follow up with Hematology for management of the above.. Since the last visit, the patient has been stable. 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 He hashad no signs or symptoms of anticoagulant related bleeding. States that even after his venogram with intervention, he saw significant lower extremity edema. However, his feet remain dependent in his wheelchair much of the time. They do try to elevate them when possible. He was wearing compression socks; however, developed a wound on his toe and they have not been wearing them since that time per the recommendations of occupational therapy. He remains in a facility following his acute spinal cord injury. He sees occupational therapy 3 times per week. He denies any signs or symptoms of recurrence otherwise. Aside from the above struggles, he is overall stable. ALLERGIES: No Known Allergies CURRENT MEDICATION: Current Outpatient Medications: acetaminophen (TYLENOL) 500 mg tablet, Take 1 tablet (500 mg total) by mouth every 6 (six) hours asneeded for pain (Patient taking differently: Take 1 tablet (500 mg total) by mouth every 6 (six) hours as needed for pain), Disp: 30 tablet, Rfl: 0 acyclovir (ZOVIRAX) 400 mg tablet, Take 1 tablet (400 mg total) by mouth 2 (two) times a day, Disp:, Rfl: aluminum-magnesium hydroxide-simethicone (MAALOX) suspension 200-200-20 mg/5 mL, Take 30 mL by mouth 2 (two) times a day as needed (mix with calprotect and apply to buttocks), Disp: , Rfl: ascorbic acid (VITAMIN C ORAL), Take 1 tablet by mouth 2 (two) times a day, Disp: , Rfl: bisacodyL (DULCOLAX) 10 mg suppository, Insert 1 suppository (10 mg total) into the rectum daily asneeded for constipation, Disp: , Rfl: cetirizine (ZyrTEC) 10 mg tablet, Take 1 tablet (10 mg total) by mouth daily before breakfast, Disp: , Rfl: 0 cholecalciferol (VITAMIN D-3) 5,000 unit capsule, Take 1 capsule (5,000 Units total) by mouth everymorning, Disp: , Rfl: ciprofloxacin (CIPRO) 500 mg tablet, Take 1 tablet (500 mg total) by mouth 2 (two) times a day, Disp: , Rfl: cyclobenzaprine (FLEXERIL) 5 mg tablet, Take 1 tablet (5 mg total) by mouth 3 (three) times a day as needed for muscle spasms, Disp: , Rfl: enoxaparin (LOVENOX) 100 mg/mL syringe, Inject 1 mL (100 mg total) under the skin every 12 (twelve)hours, Disp: 30 mL, Rfl: 1 eszopiclone (LUNESTA) 1 mg tablet, Take 1 tablet (1 mg total) by mouth nightly, Disp: , Rfl: furosemide (LASIX) 40 mg tablet, Take 1 tablet (40 mg total) by mouth 2 (two) times a day (Patient taking differently: Take 1 tablet (40 mg total) by mouth daily before breakfast), Disp: , Rfl: gabapentin (NEURONTIN) 600 mg tablet, Take 1 tablet (600 mg total) by mouth 3 (three) times a day (Patient taking differently: Take 1 tablet (600 mg total) by mouth 3 (three) times a day as needed (pain)), Disp: , Rfl: Lactobacillus acidophilus capsule, Take 1 tablet by mouth 2 (two) times a day, Disp: , Rfl: menthol-zinc oxide 0.44-20.6 % ointment, Apply 1 Application topically 2 (two) times a day as needed (apply to buttocks), Disp: , Rfl: metOLazone (ZAROXOLYN) 5 mg tablet, Take 1 tablet (5 mg total) by mouth daily, Disp: , Rfl: miconazole 2 % cream, Apply 1 Application topically 2 (two) times a day, Disp: , Rfl: miconazole 2 % powder, Apply topically 2 (two) times a day (Patient taking differently: Apply 1 g (1 Application total) topically 2 (two) times a day), Disp: , Rfl: Mounjaro 10 mg/0.5 mL pen injector, , Disp: , Rfl: multivitamin tablet, Take 1 tablet by mouth diesel technology instructor before breakfast, Disp: , Rfl: ondansetron ODT (ZOFRAN-ODT) 4 mg disintegrating tablet, Take 1 tablet (4 mg total) by mouth every 8 (eight) hours as needed for vomiting or nausea, Disp: , Rfl: pantoprazole DR (PROTONIX) 40 mg EC tablet, Take 1 tablet (40 mg total) by mouth daily (Patient taking differently: Take 1 tablet (40 mg total) by mouth every morning), Disp: , Rfl: potassium chloride ER 20 mEq CR tablet, Take 1 tablet (20 mEq total) by mouth diesel technology instructor before breakfast, Disp: , Rfl: senna-docusate (PERICOLACE) 8.6-50 mg, Take 1 tablet by mouth nightly (Patient taking differently: Take 1 tablet by mouth diesel technology instructor before breakfast), Disp: , Rfl: tamsulosin (FLOMAX) 0.4 mg extended release capsule, Take 2 capsules (0.8 mg total) by mouth daily with dinner (Patient taking differently: Take 2 capsules (0.8 mg total) by mouth nightly 2 tablets),Disp: , Rfl: tamsulosin (FLOMAX) 0.4 mg extended release capsule, Take 1 capsule (0.4 mg total) by mouth daily (Patient taking differently: Take 1 capsule (0.4 mg total) by mouth 2 (two) times a day), Disp: 30 capsule, Rfl: 11 Xarelto 20 mg tablet, Take 1 tablet (20 mg total) by mouth daily with breakfast, Disp: , Rfl: PHYSICAL EXAM: There were no vitals taken for this visit. CONSTITUTIONAL: Alert, No Acute Distress RESPIRATORY: Effort Normal, No Respiratory Distress NEUROLOGIC: A/O x 3 PSYCHIATRIC: Judgement Normal, Mood Appropriate LABORATORY DATA: Hematology Lab History Latest Ref Rng & Units 12/27/2023 00:19 01/23/2024 18:08 04/11/2024 10:31 06/19/2024 08:07 Labs - Hematology WBC 3.8 - 9.9 K/cumm 7.4 9.2 5.8 5.8 Total Hb, POC 13.0 - 17.5 g/dL 10.1 10.5 12.0 11.3 Hct 38.9 - 50.3 % 30.8 34.3 35.8 34.4 Plt 150 - 400 K/cumm 158 196 213 198 Neutrophil abs 1.5 - 6.5 K/cumm 6.3 3.4 3.0 Lymphocytes, abs 0.8 - 3.3 K/cumm 1.8 1.6 1.7 Chem/LFT Lab History Latest Ref Rng & Units 12/27/2023 00:19 01/23/2024 18:08 04/11/2024 06/19/2024 08:07 Labs-Chem/LFT Sodium 135 - 145 mmol/L 140 142 139 143 Creatinine 0.80 - 1.30 mg/dL 0.78 0.86 0.63 0.72 Bilirubin, total 0.1 - 1.2 mg/dL 0.3 0.7 AST 10 - 50 Units/L 14 26 ALT 7 - 55 Units/L 13 16 Alk phos 40 - 130 Units/L 93 96 CrCl- Actual Body Weight (Cockcroft-Gault) 109.8 99.6 122.4 108.5 Details More values are hidden. Newest values shown. Go to activity for more data. 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 Given the patient's history, he is at very high risk of recurrent venous thromboembolism following discontinuation of anticoagulant therapy. He is tolerating therapy well without signs or symptoms of anticoagulant related bleeding. At this time, I recommend he continue on current treatment. He is currently on enoxaparin given his recent intervention with Interventional Radiology and will complete his 30 days of treatment . I will discuss with Interventional Radiology, but he should be able to resume his oral therapy following that time. I will continue to follow him up on an annual basis. The patient and know to call in the interim with any questions or concerns. Katharine Hampton MD documented in this encounter Plan of Treatment Not on file documented as of this encounter Visit Diagnoses Diagnosis Anticoagulant long-term use- Primary Encounter for long-term (current) use of anticoagulants Personal history of venous thrombosis and embolism Pulmonary embolism, unspecified chronicity, unspecified pulmonary embolism type, unspecified whether acute cor pulmonale present (HCC) documented in this encounter Orders Appointment Requests Count Last Ordered Date Fi rst Ordered Date [facility] CLINIC APPOINTMENT REQUEST 1 024 documented in this encounter Care Teams Drum Sprayer Relationship Specialty Start Date End Date No, Physician PCP - General 05/26/24 documented as of this encounter
--- OUTSIDE RECORDS SUMMARY | 2024-11-05 19:16 | XMS_ITS | Encounter Summary ---
Author Organization [facility] Address [address] [place] [address] Phone Care Team Providers Care Maintenance Equipment Operator Name Role Phone No, Physician Primary Care Provider [phone] Encounter Details Date Type Department Care Team (Late st Contact Info) Description 09/01/2024 Telephone [facility] Infectious Diseases [address] [place] [address] [address] [place] [address] Caitlin Hussein BS Social History Tobacco Use Types Packs/Day Years Used Date Smoking Tobacco: Former Cigarettes 1 09 05 969 - 1979 Passive Smoke Exposure: Never Smokeless Tobacco: Never Alcohol Use Standard Drinks/Week Comments Yes 14 (1 standard drink = 0.6 oz pu re alcohol) social [facility] Utilities Answer Date Recorded In the past 12 months has [employer], gas, oil, or water [employer] threatened to shut off services in your [...] often do you attend chur ch or denominational services? Never 12/27/2023 Do you belong to any clubs o r organizations such as taoist groups, unions, fraternal or athletic groups, or [...] place to sleep or slept in a fci (including now)? No 12/27/2023 Personal Safety Answer Date Recorded Have you ever been in or are you currently in a harmful physical or emotional relationship or is someone making you feel afraid or unsafe? 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 * Telephone Encounter - Damaris Tellez RN - 09/01/2024 3:30 PM CDT Returned call to Carey left voicemail for her to call back and discuss concerns. Patient has not been seen in ID clinic, scheduled 09/25/24. * Telephone Encounter - Caitlin Hussein BS - 09/01/2024 2:19 PM CDT Pt's nurse from their facility is calling with concerns from family that pt will not be getting seen soon enough for their infection and wanted to speak to nurse on if they need to take pt to the ER before visit Carey @ [phone] documented in this encounter Plan of Treatment Not on file documented as of this encounter Visit Diagnoses Not on filedocumented in this encounter Care Teams Maintenance Equipment Operator Relationship Specialty Start Date End Date No, Physician PCP - General 05/26/24 documented as of this encounter
--- OUTSIDE RECORDS SUMMARY | 2024-11-05 19:16 | XMS_ITS | Encounter Summary ---
Author Organization [facility] Healthcare Address [address] [place] [address] Care Team Providers Care Machine Cementer And Folder Name Role Phone No, Physician Primary Care Provider [phone] Encounter Details Date Type Department Care Team (Late st Contact Info) Description 09/03/2024 Orders Only [facility] Radiology [address] [place] [address] Meryl Longoria RN Social History Tobacco Use Types Packs/Day Years Used Date Smoking Tobacco: Former Cigarettes 1 11 969 1979 Passive Smoke Exposure: Never Smokeless Tobacco: Never Alcohol Use Standard Drinks/Week Comments Yes 14 (1 standard drink = 0.6 oz pu re alcohol) social C Utilities Answer Date Recorded In the past 12 months has [employer], gas, oil, or water [employer] threatened to shut off services in your [...] often do you attend chur ch or pentecostalism services? Never 12/27/2023 Do you belong to any clubs o r organizations such as quaker groups, unions, fraternal or athletic groups, or [...] place to sleep or slept in a retirement (including now)? No 12/27/2023 Personal Safety Answer Date Recorded Have you ever been in or are you currently in a harmful physical or emotional relationship or is someone making you feel afraid or unsafe? 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
--- OUTSIDE RECORDS SUMMARY | 2024-11-05 19:16 | XMS_ITS | Encounter Summary ---
Author Organization [facility] Address [address] [facility] [address] [place] [address] Phone Care Team Providers Care Air Technician Name Role Phone No, Physician Primary Care Provider [phone] Encounter Details Date Type Department Care Team (Late st Contact Info) Description 09/08/2024 Orders Only [facility] Surgery [address] [place] [address] Temo Mcintosh MD [address] [facility] [place] [address] Hydronephrosis with urinary obstruction due to renal calculus (Primary Dx); Renal failure, unspecified chronicity Social History Tobacco Use Types Packs/Day Years Used Date Smoking Tobacco: Former Cigarettes 1 09 05 969 - 1979 Passive Smoke Exposure: Never Smokeless Tobacco: Never Alcohol Use Standard Drinks/Week Comments Yes 14 (1 standard drink = 0.6 oz pu re alcohol) social [facility] Utilities Answer Date Recorded In the past 12 months has [employer], gas, oil, or water [employer] threatened to shut off services in your [...] week 12/27/2023 How often do you attend [facility] or yazidi services? Never 12/27/2023 Do you belong to [...] place to sleep or slept in a custodial (including now)? No 12/27/2023 Personal Safety Answer Date Recorded Have you ever been in or are you currently in a harmful physical or emotional relationship or is someone making you feel afraid or unsafe? 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 Not on file Not on file documented as of this encounter Plan of Treatment Scheduled Orders Name Type Priority Associated Diagnoses Orde r Schedule Protime-INR Lab Routine Hydronephrosis with urinary obstruction due to renal calculus Renal failure, unspecified chronicity Expected: 09/08/2024 (Approximate), Expires: 03/08/2026 documented as of this encounter Visit Diagnoses Diagnosis Hydronephrosis with urinary obstruction due to renal calculus- Primary Renal failure, unspecified chronicity documented in this encounter Care Teams Air Technician Relationship Specialty Start Date End Date No, Physician PCP - General 05/26/24 documented as of this encounter
--- OUTSIDE RECORDS SUMMARY | 2024-11-05 19:16 | XMS_ITS | Encounter Summary ---
Author Organization [facility] Healthcare Address [address] [place] [address] Care Team Providers Care Manager Policy Name Role Phone No, Physician Primary Care Provider [phone] Encounter Details Date Type Department Care Team (Late st Contact Info) Description 08/05/2024 Telephone [facility] Radiology [address] [place] [address] Viry Stroud RN Social History Tobacco Use Types Packs/Day Years Used Date Smoking Tobacco: Former Cigarettes 1 11 969 1979 Passive Smoke Exposure: Never Smokeless Tobacco: Never Alcohol Use Standard Drinks/Week Comments Yes 14 (1 standard drink = 0.6 oz pu re alcohol) social [facility] Utilities Answer Date Recorded In the past 12 months has [employer], gas, oil, or water [employer] threatened to shut off services in your [...] often do you attend chur ch or orthodoxy services? Never 12/27/2023 Do you belong to any clubs o r organizations such as episcopal groups, unions, fraternal or athletic groups, or [...] place to sleep or slept in a half-way (including now)? No 12/27/2023 Personal Safety Answer Date Recorded Have you ever been in or are you currently in a harmful physical or emotional relationship or is someone making you feel afraid or unsafe? 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 We will see him in clinic in 4 weeks and consider transitioning to normal in course. Pt scheduled for f/u in clinic on 09/15/24 at 1000. Pt letter sent via mail. [place] direct line given for contact as needed. documented in this encounter Plan of Treatment Not on file documented as of this encounter Visit Diagnoses Not on filedocumented in this encounter Care Teams Manager Policy Relationship Specialty Start Date End Date No, Physician PCP - General 05/26/24 documented as of this encounter
--- OUTSIDE RECORDS SUMMARY | 2024-11-05 19:16 | XMS_ITS | Encounter Summary ---
Author Organization [facility] Address [address] [place] [address] Care Team Providers Care Pipeline Integrity Engineer Name Role Phone No, Physician Primary Care Provider [phone] Encounter Details Date Type Department Care Team (Late st Contact Info) Description 08/04/2024 1:07 PM CDT Anesthesia Event [facility] Radiology [address] [place] [address] Leda Dsouza MD [address] [place] [address] Jorge Beal MD [address] [place] [address] Anesthesia Record Procedure Summary Procedure Name Responsible Anesthesiologist Anesthesia Start Time Anesthesia Stop Time VENOGRAM LOWER EXTREMITY BILATERAL Leda Dsouza MD 08/04/24 1307 08/04/24 1612 Events Date Time Event Comment 08/04/2024 1307 An Start 1312 An Start Data 1322 An Induction The patient was reevaluated immediately before moderate or deep sedation use and before anesthesia induction. 1324 An Intubation 1327 Anesthesia Ready 1555 An Extubation 1612 Handoff to RN I completed my handoff to the receiving nurse during which we: 1. Patient identified 2. Responsible provider identified 3. Pertinent medical history reviewed 4. Procedure type and surgical course discussed 5. Intraoperative anesthetic management and any significant issues discussed 6. Expectations and concerns for postop period discussed 7. Questions solicited from receiving nurse 8. Patient disposition at the time of handoff: PACU 1612 An Stop Meds Name Total lidocaine (cardiac) syringe 2 % 40 mg propofol 150 mg fentaNYL 100 mcg rocuronium 70 mg ondansetron PF (ZOFRAN) 2 mg/mL injectio n 4 mg phenylephrine infusion (100 mcg/mL) 3.15 mg heparin 1,000 unit/ml 5,000 Units sugammadex 200 mg sodium chloride 0.9% infusion 700 mL * Agents Name O2% N2O O2 Air Sevoflurane Inspired Sevoflurane * Blood No blood administrations on file. Lines, Drains, and Airways Type Details Placement Removal Urethral Catheter Placement Date: 06/06/24; Placement Time: 1010; Type: Double-lumen; Balloon Size: 10 mL; Urine Returned: Yes 06/06/24 1010 by Chel Velazquez RN Wound 08/04/24; 1610; N; Incision; Neck; Right; venogram access site 08/04/24 1610 by Octavio Haider RN Wound 08/04/24; 1610; N; Incision; Groin; Right; venogram access site 08/04/24 1610 by Octavio Haider RN Peripheral IV Placement Date: 08/04/24; Placement Time: 1100; Catheter Size: 20 G; Orientation: Distal, Posterior, Right; Location: Forearm; Site Prep: Alcohol; Technique: Anatomical landmarks; Inserted by: Octavio Haider RN; Insertion Attempts: 2; Patient Tolerance: Anxious; Removal Date: 08/04/24; Removal Time: 1651; Removal Reason: Therapy completed 08/04/24 1100 by Octavio Haider RN 08/04/24 1651 by Octavio Haider RN ETT Placement Date: 08/04/24; Placement Time: 1346 (created via procedure documentation); Mask Ventilation: 1; Technique: Video laryngoscopy; Type: ETT - single; Single Lumen Tube Size: 7.5 mm; Cuffed: Yes; Laryngoscope: Bennett; Blade Size: 4; Location: Oral; Insertion Attempts: 1; Placement Verification: Auscultation, Capnometry; Removal Date: 08/04/24; Removal Time: 1555 08/04/24 1346 by Jose Roche, MICAH 08/04/24 1555 by Jose Roche CRNA documented in this encounter Social History Tobacco Use Types Packs/Day Years Used Date Smoking Tobacco: Former Cigarettes 1 09 05 969 1979 Passive Smoke Exposure: Never Smokeless Tobacco: Never Alcohol Use Standard Drinks/Week Comments Yes 14 (1 standard drink = 0.6 oz pu re alcohol) social [facility] Utilities Answer Date Recorded In the [...] often do you attend chur ch or yarsani services? 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 Not on file Not on file documented as of this encounter OR Notes * Anesthesia Postprocedure Evaluation - Leda Dsouza MD - 08/04/2024 4:27 PM CDT Patient: Hira Evans Procedure Summary Date: 08/04/24 Room / Location: [facility] Radiology Anesthesia Start: 1307 Anesthesia Stop: 161 Procedure: VENOGRAM LOWER EXTREMITY BILATERAL Diagnosis: Swelling of both lower extremities Scheduled Providers: Milan Crum MD; Jose Roche CRNA; Leda Dsouza MDResponsible Provider: Leda Dsouza MD Anesthesia Type: general ASA Status: 3 Anesthesia Type: general Last vitals BP 145/74 (BP Location: Left arm, Patient Position: Lying) Pulse 68 Temp 36 ??C (96.8 ??F) (Temporal) Resp 18 SpO2 100% Anesthesia Post Evaluation Patient location during evaluation: PACU Patient participation: complete - patient participated Level of consciousness: fully awake Pain score: 0 Pain management: satisfactory to patient Airway patency: patent Evidence of recall: no Cardiovascular status: hemodynamically stable Respiratory status: room air Hydration status: acceptable Pt is: normothermic Nausea/Vomiting status: none Comments: Denies pain. 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 Patient anticipates going home later today No notable events documented. * Anesthesia Procedure Notes - Jose Roche CRNA - 08/04/2024 1:45 PM CDTAssociated Order(s): Airway Airway Urgency: elective Indications for airway management: anesthesia Difficult airway: no Staff: Supervising provider: Leda Dsouza MD Placed by: MAINTENANCE TEAM LEADER: Jose Roche CRNA Emergent airway documentation: Risks and benefits discussed: yes Consent obtained: yes Consent given by: patient Airway prep: Preoxygenated: yes Patient position: sniffing Mask difficulty assessment: 1 - vent by mask Spontaneous ventilation during airway: absent Sedation level during airway: GA Final airway details: Final airway type: endotracheal airway Tube type: ETT ETT size: 7.5 mm Cuffed: yes Technique used for successful ETT placement: video laryngoscopy Devices/Methods used in placement: stylet Insertion site: oral Blade type: Bennett Video blade type: Jimenez Blade size: 4 Cormack-Lehane (video): grade I - full view of glottis Cuff inflated with: air ETT to lips: 24 cm Placement verified by: auscultation and CO2 detection Airway secured with: silk tape Number of attempts: 1 * Anesthesia Preprocedure Evaluation - Dane Washington MD - 08/04/2024 10:32 AM CDT Images from the original note were not included. Anesthesia Evaluation Hira Evans is a 74 y.o. male VENOGRAM LOWER EXTREMITY BILATERAL * No Diagnosis Codes entered * HISTORY HPI LE Paralysis and DVTs following a lumbar procedure with an epidural hematoma. Evaluation for a lower extremity venogram. Past Medical History Neurological + Seizures - well controlled. Pertinent negatives: CVA/stroke; TIA and CEA Cardiovascular + Hypertension + DVT/PE Respiratory Pertinent negatives: COPD; asthma and sleep apnea (KYLE) Gastrointestinal + GERD Renal / + Renal disease (kidney stones) Musculoskeletal/Pain + Osteoarthritis Endocrine / Other + Diabetes mellitus (patient on monjuaro with last dose 2 days ago) - Diabetes type 2. Pertinent negatives: thyroid disease and obesity (BMI >30) Functional Capacity Functional capacity: <4 METs Functional capacity limited by a non-cardiovascular, non-pulmonary condition. Day of Surgery assessments no possibility of Review of Systems Pertinent negatives: productive cough; wheezing; SOB; recent cold/flu; fever and chest pain Patient Active Problem List Diagnosis Date Noted Nephrolithiasis 12/25/2023 DVT (deep venous thrombosis) ([facility]) ([facility]) 11/29/2023 Anemia 11/29/2023 Paraspinal hematoma 11/29/2023 Hyponatremia 11/29/2023 Elevated transaminase level 11/29/2023 Lower extremity edema 11/29/2023 Scrotal swelling 11/29/2023 Seizure ([facility]) 11/29/2023 Prediabetes 11/29/2023 Kidney stone 11/09/2023 Paralysis of both lower limbs ([facility]) ([facility]) 11/07/2023 Pulmonary embolism ([facility]) 10/26/2023 S/P spinal fusion 10/23/2023 Cardiac arrest ([facility]) 10/23/2023 Left perinephric collection, 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 10/15/2023 Ureteral colic 10/13/2023 UTI (urinary tract infection) 10/13/2023 Hydronephrosis with urinary obstruction due to renal calculus 10/12/2023 Lumbar radiculopathy 10/08/2023 Gross hematuria 10/18/2022 Bladder neck obstruction 10/17/2022 Lesion of urinary bladder 10/17/2022 Prostate cancer ([facility]) 10/17/2022 HTN (hypertension) 10/10/2021 Risk factors for obstructive sleep apnea 10/10/2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 Specifically, he developed right gaze deviation and bilateral tonic clonic movements. This was followed by a cardiac arrest requiring CPR. Cauda equina compression (HCC) DVT (deep venous thrombosis) (CMS/HCC) (HCC) Gastric reflux GERD (gastroesophageal reflux disease) History of melanoma Hypertension Kidney stone Paraspinal hematoma 11/29/2023 Personal history of prostate cancer Pneumonia Pulmonary embolism (HCC) Seasonal allergies Past Surgical History: Procedure Laterality Date CYSTOSCOPY 10/13/2023 pyelogram retrograde CYSTOSCOPY Left 10/18/2023 ureter stent, pyelogram retrograde CYSTOSTOMY W/ BLADDER BIOPSY 11/2022 FL UPPER GI AIR CONTRAST W KUB Left 09/21/2023 INSERT VENA CAVA FILTER N/A 11/09/2023 LUMBAR [...] dural tear VASECTOMY over 30 years ago No Known Allergies Taking? Last Dose Start Date End Date Provider acetaminophen (TYLENOL) 500 mg tablet -- 12/27/23 -- Angela Paz MD Take 1 tablet (500 mg total) by mouth every 6 (six) hours as needed for pain Patient taking differently: Take 1 tablet (500 mg total) by mouth every 6 (six) hours as needed forpain acyclovir (ZOVIRAX) 400 mg tablet -- 12/10/23 -- Jimenez Henao MD Take 1 tablet (400 mg total) by mouth 2 (two) times a day aluminum-magnesium hydroxide-simethicone (MAALOX) suspension 200-200-20 mg/5 mL -- -- -- Fidelia Perdue MD ascorbic acid (VITAMIN C ORAL) -- -- -- Fidelia Perdue MD bisacodyL (DULCOLAX) 10 mg suppository -- 12/10/23 -- Jimenez Henao MD Insert 1 suppository (10 mg total) into the rectum daily as needed for constipation cetirizine (ZyrTEC) 10 mg tablet -- 03/17/24 -- Fidelia Perdue MD cholecalciferol (VITAMIN D-3) 5,000 unit capsule -- 12/10/23 -- Jimenez Henao MD Take 1 capsule (5,000 Units total) by mouth every morning ciprofloxacin (CIPRO) 500 mg tablet -- -- -- Fidelia Perdue MD cyclobenzaprine (FLEXERIL) 5 mg tablet -- 12/10/23 -- Jimenez Henao MD Take 1 tablet (5 mg total) by mouth 3 (three) times a day as needed for muscle spasms enoxaparin (LOVENOX) 100 mg/mL syringe -- 07/30/24 08/04/24 Milan Crum MD Inject 1 mL (100 mg total) under the skin every 12 (twelve) hours for 5 days Bridge to lovenox 5 days prior to procedure scheduled for 08/04/24. eszopiclone (LUNESTA) 1 mg tablet -- 03/11/24 -- Fidelia Perdue MD furosemide (LASIX) 40 mg tablet -- 12/11/23 12/10/24 Jimenez Henao MD Take 1 tablet (40 mg total) by mouth 2 (two) times a day Patient taking differently: Take 1 tablet (40 mg total) by mouth daily before breakfast gabapentin (NEURONTIN) 600 mg tablet -- 12/10/23 12/09/24 Jimenez Henao MD Take 1 tablet (600 mg total) by mouth 3 (three) times a day Patient taking differently: Take 1 tablet (600 mg total) by mouth 3 (three) times a day as needed (pain) Lactobacillus acidophilus capsule -- -- -- Fidelia Perdue MD menthol-zinc oxide 0.44-20.6 % ointment -- -- -- Fidelia Perdue MD metOLazone (ZAROXOLYN) 5 mg tablet -- -- -- Fidelia Perdue MD miconazole 2 % cream -- -- -- Fidelia Perdue MD miconazole 2 % powder -- 12/10/23 -- Jimenez Henao MD Apply topically 2 (two) times a day Patient taking differently: Apply 1 g (1 Application total) topically 2 (two) times a day Mounjaro 10 mg/0.5 mL pen injector -- 12/27/23 -- Fidelia Perdue MD multivitamin tablet -- -- -- Fidelia Perdue MD ondansetron ODT (ZOFRAN-ODT) 4 mg disintegrating tablet -- 01/10/24 -- Fidelia Perdue MD pantoprazole DR (PROTONIX) 40 mg EC tablet -- 12/11/23 12/10/24 Jimenez Henao MD Take 1 tablet (40 mg total) by mouth daily Patient taking differently: Take 1 tablet (40 mg total) by mouth every morning potassium chloride ER 20 mEq CR tablet -- 01/22/24 -- Fidelia Perdue MD senna-docusate (PERICOLACE) 8.6-50 mg -- 12/10/23 -- Jimenez Henao MD Take 1 tablet by mouth nightly Patient taking differently: Take 1 tablet by mouth bulk intake worker before breakfast tamsulosin (FLOMAX) 0.4 mg extended release capsule -- 02/27/24 02/26/25 Jessenia Ash MD Take 1 capsule (0.4 mg total) by mouth daily Patient taking differently: Take 1 capsule (0.4 mg total) by mouth 2 (two) times a day tamsulosin (FLOMAX) 0.4 mg extended release capsule () -- 12/10/23 02/07/24 Jimenez Henao MD Take 2 capsules (0.8 mg total) by mouth daily with dinner Patient taking differently: Take 2 capsules (0.8 mg total) by mouth nightly 2 tablets Xarelto 20 mg tablet -- 02/07/24 -- Fidelia Perdue MD Current Outpatient Medications: acetaminophen (TYLENOL) 500 mg tablet acyclovir (ZOVIRAX) 400 mg tablet aluminum-magnesium hydroxide-simethicone (MAALOX) suspension 200-200-20 mg/5 mL ascorbic acid (VITAMIN C ORAL) bisacodyL (DULCOLAX) 10 mg suppository cetirizine (ZyrTEC) 10 mg tablet cholecalciferol (VITAMIN D-3) 5,000 unit capsule ciprofloxacin (CIPRO) 500 mg tablet cyclobenzaprine (FLEXERIL) 5 mg tablet enoxaparin (LOVENOX) 100 mg/mL syringe eszopiclone (LUNESTA) 1 mg tablet furosemide (LASIX) 40 mg tablet gabapentin (NEURONTIN) 600 mg tablet Lactobacillus acidophilus capsule menthol-zinc oxide 0.44-20.6 % ointment metOLazone (ZAROXOLYN) 5 mg tablet miconazole 2 % cream miconazole 2 % powder Mounjaro 10 mg/0.5 mL pen injector multivitamin tablet ondansetron ODT (ZOFRAN-ODT) 4 mg disintegrating tablet pantoprazole DR (PROTONIX) 40 mg EC tablet potassium chloride ER 20 mEq CR tablet senna-docusate (PERICOLACE) 8.6-50 mg tamsulosin (FLOMAX) 0.4 mg extended release capsule tamsulosin (FLOMAX) 0.4 mg extended release capsule Xarelto 20 mg tablet Social History Tobacco Use Smoking Status Former Current packs/day: 0.00 Average packs/day: 1 pack/day for 11.0 years (11.0 ttl pk-yrs) Types: Cigarettes Start date: 1968 Quit date: 1979 Years since quittin.7 Passive exposure: Never Smokeless Tobacco Never Alcohol Use: Not At Risk (08/04/2024) AUDIT-C Frequency of Alcohol Consumption: 4 or more times a week Average Number of Drinks: Patient does not drink Frequency of Binge Drinking: Never Substance and Sexual Activity Drug Use Yes Frequency: 2.0 times per week Types: Medical marijuana Family History Problem Relation Age of Onset Heart disease Mother Lung disease Mother Alcohol abuse Father Cancer Father Heart disease Other Family history of cardiac disorder - (Added by TW Conv) Cancer Other Family history of malignant neoplasm - (Added by TW Conv) Anesthesia problems Neg Hx There were no vitals filed for this visit. PT: No results found for requested labs within last 30 days. INR: No results found for requested labs within last 30 days. APTT: No results found for requested labs within last 30 days. Hgb A1C: No results found for requested labs within last 30 days. CBC RBC: No results found for requested labs within last 30 days. RDW: No results found for requested labs within last 30 days. MCHC: No results found for requested labs within last 30 days. MCH: No results found for requested labs within last 30 days. MCV: No results found for requested labs within last 30 days. Hct: No results found for requested labs within last 30 days. Hgb: No results found for requested labs within last 30 days. WBC: No results found for requested labs within last 30 days. MPV: No results found for requested labs within last 30 days. Platelets: No results found for requested labs within last 30 days. RDW CV: No results found for requested labs within last 30 days. RDW Sd: No results found for requested labs within last 30 days. BMP Glucose: No results found for requested labs within last 30 days. Calcium: No results found for requested labs within last 30 days. Sodium: No results found for requested labs within last 30 days. Potassium: No results found for requested labs within last 30 days. CO2: No results found for requested labs within last 30 days. Chloride: No results found for requested labs within last 30 days. BUN: No results found for requested labs within last 30 days. Creatinine: No results found for requested labs within last 30 days. DOS Physical Exam Medical history, medications, and allergies reviewed. Attestation: This PAT evaluation Airway Exam: Mallampati: III Cervical ROM: FROM Cardiovascular Exam: Rate: regular Rhythm: regular Negative for Murmur Pulmonary Exam: LCTA, bilat Dental Exam: Appears intact Current state: Patient's current state is cooperative and interactive. Anesthesia Plan ASA 3 My patient is approved for the Anesthesia Controlled Medication protocol when under care of a MAINTENANCE TEAM LEADER Planned anesthesia: General Team communication plan: oral ET tube Induction: Induction: intravenous. Postoperative Plan: Postoperative administration opioids intended. No postoperative mechanical ventilation intended. Patient's planned disposition post procedure is Outpatient. Informed Consent: Discussed plan with MAINTENANCE TEAM LEADER. Anesthesia plan and risks discussed with patient. Plan and Consent Comments: Patient with last dose of monjuaro [address] ETT for airway protection. No nausea or bloating. Consent and Attending signature: I and/or my designee have discussed the anesthesia plan, benefits, possible alternatives, parental presence at time of induction (if indicated), and clinically relevant risks that may include dental injury, unintentional awareness, and/or other complications. The patient and/or parent/legal guardian understand, and agree to proceed. All questions answered. documented in this encounter Plan of Treatment Not on file documented as of this encounter Procedures Procedure Name Priority Date/Time Associated Diagnosis Comments IL AN PROCEDURE PLACEHOLDER Routine 08/04/2024 1:45 PM CDT IL AN ELECTIVE ENDOTRACHEAL AIRWAY Routine 08/04/2024 1:45 PM CDT documented in this encounter Results * IL AN ELECTIVE ENDOTRACHEAL AIRWAY, IL AN PROCEDURE PLACEHOLDER (08/04/2024 1:45 PM CDT) Narrative Jose Roche CRNA - 08/04/2024 1:45 PM CDT Jose Roche CRNA ? 08/04/2024 ??1:46 PM Airway Urgency: elective Indications for airway management: anesthesia Difficult airway: no Staff: Supervising provider: Leda Dsouza MD Placed by: MAINTENANCE TEAM LEADER: Jose Roche CRNA Emergent airway documentation: Risks and benefits discussed: yes Consent obtained: yes Consent given by: patient Airway prep: Preoxygenated: yes Patient position: sniffing Mask difficulty assessment: 1 - vent by mask Spontaneous ventilation during airway: absent Sedation level during airway: GA Final airway details: Final airway type: endotracheal airway Tube type: ETT ETT size: 7.5 mm Cuffed: yes Technique used for successful ETT placement: video laryngoscopy Devices/Methods used in placement: stylet Insertion site: oral Blade type: Bennett Video blade type: Jimenez Blade size: 4 Cormack-Lehane (video): grade I - full view of glottis Cuff inflated with: air ETT to lips: 24 cm Placement verified by: auscultation and CO2 detection Airway secured with: silk tape Number of attempts: 1 us Leda Dsouza MD ANESTHESIA ORDERABLES Fi nal Result documented in this encounter Visit Diagnoses Not on filedocumented in this encounter Administered Medications Inactive Administered Medications - up to 3 most recent administrations Medication Order MAR Action Action Date Dose Rate Site fentaNYL (SUBLIMAZE) preservative free injection intravenous, As needed, Starting on Sun08/04/24 at 1322, Anesthesia Intra-op Given 08/04/2024 1:22 PM CDT 100 mcg heparin 1,000 unit/mL injection intravenous, As needed, Starting on Sun08/04/24 at 1410, Anesthesia Intra-op Given 08/04/2024 3:10 PM CDT 2,000 Units Given 08/04/2024 2:10 PM CDT 3,000 Units lidocaine (cardiac) (XYLOCAINE) preservative free injection intravenous, As needed, Starting on Sun08/04/24 at 1322, Anesthesia Intra-op, Indications: Ventricular ArrhythmiasIndications:Ventr icular Arrhythmias Given 08/04/2024 1:22 PM CDT 40 mg ondansetron (ZOFRAN) injection intravenous, Administer over 2 Minutes, As needed, Starting on Sun08/04/24 at 1548, Anesthesia Intra-op Given 08/04/2024 3:48 PM CDT 4 mg phenylephrine (ARIELLE-SYNEPHRINE) 5 mg/50 mL (100 mcg/mL) in sodium chloride 0.9% (premix) intravenous, Continuous PRN, Starting on Sun08/04/24 at 1342, Anesthesia Intra-op New Bag 08/04/2024 1:42 PM CDT 0.3 mcg/kg/min 15.102 mL/hr propofoL (DIPRIVAN) 10 mg/mL IV intravenous, As needed, Starting on Sun08/04/24 at 1322, Anesthesia Intra-op Given 08/04/2024 1:22 PM CDT 150 mg rocuronium (ZEMURON) injection intravenous, As needed, Starting on Sun08/04/24 at 1322, Anesthesia Intra-op Given 08/04/2024 2:23 PM CDT 30 mg Given 08/04/2024 1:22 PM CDT 40 mg sodium chloride 0.9% infusion 30 mL/hr, intravenous, Continuous, Starting on Sun08/04/24 at 1115, Pre-Procedure (IR) Restarted 08/04/2024 3:52 PM CDT Rate/Dose Verify 08/04/2024 1:07 PM CDT 30 mL/h r New Bag 08/04/2024 11:00 AM CDT 30 mL/hr 30 mL/hr sugammadex (BRIDION) 100 mg/mL intravenous solution intravenous, As needed, Starting on Sun08/04/24 at 1545, Anesthesia Intra-op Given 08/04/2024 3:45 PM CDT 200 mg documented in this encounter Care Teams Pipeline Integrity Engineer Relationship Specialty Start Date End Date No, Physician PCP - General 05/26/24 documented as of this encounter"
--- OUTSIDE RECORDS SUMMARY | 2024-11-05 19:16 | XMS_ITS | Encounter Summary ---
Author Organization [facility] Healthcare Address [address] [place] [address] Care Team Providers Care Stainless Steel Finisher Name Role Phone No, Physician Primary Care Provider [phone] Encounter Details Date Type Department Care Team (Late st Contact Info) Description 09/08/2024 Telephone [facility] Radiology [address] [place] [address] Viry Stroud RN Social History Tobacco Use Types Packs/Day Years Used Date Smoking Tobacco: Former Cigarettes 1 11 969 1979 Passive Smoke Exposure: Never Smokeless Tobacco: Never Alcohol Use Standard Drinks/Week Comments Yes 14 (1 standard drink = 0.6 oz pu re alcohol) social AHC Utilities Answer Date Recorded In the past 12 months has [employer], gas, oil, or water [employer] threatened to shut off services in your [...] often do you attend chur ch or worship services? Never 12/27/2023 Do you belong to any clubs o r organizations such as congregational groups, unions, fraternal or athletic groups, or [...] place to sleep or slept in a chcf (including now)? No 12/27/2023 Personal Safety Answer Date Recorded Have you ever been in or are you currently in a harmful physical or emotional relationship or is someone making you feel afraid or unsafe? 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 States pt has been refusing lovenox as he was told he could stop taking. 08/25 - Communication from Dr. Hampton to Dr. Crum below. I had a follow-up phone visit with this patient today. He is overall doing well but significantly dislikes his Lovenox injections. He will hit his 30 days post procedure on September 03. He has had no worsening of symptoms but no significant improvement yet. However, his legs remain quite dependent. I encouraged him to work with occupational therapy where he is residing in his current facility [facility] to help with some of the swelling. Are you okay if he switches back to his DOAC prior to seeingyou on September 15? Thanks so much. I promised I would ask. Oneyda if yes, can you please let the patient/ know? One year follow-up for me. Thanks. Per Dr. Crum - Yes, I think it's reasonable to switch him back prior to that date if you don't feel so strongly about it either. If it gets worse shortly after getting off lovenox, we may have to switch him back but we can take a chance. Pt's visit note from Dr. Hampton faxed to facility per request. IC SPACE ATTENDANT documented in this encounter Plan of Treatment Not on file documented as of this encounter Visit Diagnoses Not on filedocumented in this encounter Care Teams Stainless Steel Finisher Relationship Specialty Start Date End Date No, Physician PCP - General 05/26/24 documented as of this encounter
--- OUTSIDE RECORDS SUMMARY | 2024-11-05 19:16 | XMS_ITS | Encounter Summary ---
Author Organization [facility] Address [address] [place] [address] Phone Care Team Providers Care Body Component Engineer Name Role Phone No, Physician Primary Care Provider [phone] Encounter Details Date Type Department Care Team (Late st Contact Info) Description 07/25/2024 Telephone [facility] Orthopaedic Surgery [address] 12th [place] [address] [place] [address] Joleen Cantor MD [address] [facility] [address] [place] [address] Social History Tobacco Use Types Packs/Day Years Used Date Smoking Tobacco: Former Cigarettes 1 11 969 - 1979 Passive Smoke Exposure: Never Smokeless Tobacco: Never Alcohol Use Standard Drinks/Week Comments Yes 14 (1 standard drink = 0.6 oz pu re alcohol) social AHC Utilities Answer Date Recorded In the past 12 months has [employer], gas, oil, or water [employer] threatened to shut off services in your [...] week 12/27/2023 How often do you attend [facility] or oriental orthodox services? 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 The pt is scheduled for a New pt appt w/ Dr. Cantor. clt documented in this encounter Plan of Treatment Not on file documented as of this encounter Visit Diagnoses Not on filedocumented in this encounter Care Teams Body Component Engineer Relationship Specialty Start Date End Date No, Physician PCP - General 05/26/24 documented as of this encounter
--- OUTSIDE RECORDS SUMMARY | 2024-11-05 19:16 | XMS_ITS | Encounter Summary ---
Author Organization [facility] Healthcare Address [address] [place] [address] Care Team Providers Care Floor Cashier Name Role Phone No, Physician Primary Care Provider [phone] Encounter Details Date Type Department Care Team (Late st Contact Info) Description 07/16/2024 Orders Only [facility] Radiology [address] [place] [address] Viry Stroud RN Social History Tobacco Use Types Packs/Day Years Used Date Smoking Tobacco: Former Cigarettes 1 11 969 1979 Passive Smoke Exposure: Never Smokeless Tobacco: Never Alcohol Use Standard Drinks/Week Comments Yes 14 (1 standard drink = 0.6 oz pu re alcohol) social AHC Utilities Answer Date Recorded In the past 12 months has [employer], gas, oil, or water [employer] threatened to shut off services in your [...] often do you attend chur ch or muslim services? Never 12/27/2023 Do you belong to any clubs o r organizations such as gnosticism groups, unions, fraternal or athletic groups, or [...] place to sleep or slept in a usp (including now)? No 12/27/2023 Personal Safety Answer Date Recorded Have you ever been in or are you currently in a harmful physical or emotional relationship or is someone making you feel afraid or unsafe? 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 10 mL 07/30/2024 documented in this encounter Plan of Treatment Not on file documented as of this encounter Visit Diagnoses Not on filedocumented in this encounter Care Teams Floor Cashier Relationship Specialty Start Date End Date No, Physician PCP - General 05/26/24 documented as of this encounter
--- OUTSIDE RECORDS SUMMARY | 2024-11-05 19:16 | XMS_ITS | Encounter Summary ---
Author Organization [facility] Healthcare Address [address] [place] [address] Care Team Providers Care School Bus Aide Name Role Phone No, Physician Primary Care Provider [phone] Encounter Details Date Type Department Care Team (Late st Contact Info) Description 09/24/2024 Telephone [facility] Imaging [address] [facility] [place] [address] Leticia Donahue RN Social History Tobacco Use Types Packs/Day Years Used Date Smoking Tobacco: Former Cigarettes 1 11 969 - 1979 Passive Smoke Exposure: Never Smokeless Tobacco: Never Alcohol Use Standard Drinks/Week Comments Yes 14 (1 standard drink = 0.6 oz pu re alcohol) social C Utilities Answer Date Recorded In the past 12 months has [employer]), gas, oil, or water [employer] threatened to shut off services in your [...] often do you attend chur ch or advent services? Never 12/27/2023 Do you belong to any clubs o r organizations such as yarsanism groups, unions, fraternal or athletic groups, or [...] place to sleep or slept in a long term (including now)? No 12/27/2023 Personal Safety Answer Date Recorded Have you ever been in or are you currently in a harmful physical or emotional relationship or is someone making you feel afraid or unsafe? 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 E ERECTOR SUPERVISOR documented in this encounter Plan of Treatment Not on file documented as of this encounter Visit Diagnoses Not on filedocumented in this encounter Care Teams School Bus Aide Relationship Specialty Start Date End Date No, Physician PCP - General 05/26/24 documented as of this encounter
--- OUTSIDE RECORDS SUMMARY | 2024-11-05 19:16 | XMS_ITS | Encounter Summary ---
Author Organization [facility] Healthcare Address [address] [place] [address] Care Team Providers Care Supervisor Park Workers Name Role Phone No, Physician Primary Care Provider [phone] Encounter Details Date Type Department Care Team (Late st Contact Info) Description 09/01/2024 Orders Only [facility] Radiology [address] [place] [address] Meryl Longoria RN Social History Tobacco Use Types Packs/Day Years Used Date Smoking Tobacco: Former Cigarettes 1 11 969 1979 Passive Smoke Exposure: Never Smokeless Tobacco: Never Alcohol Use Standard Drinks/Week Comments Yes 14 (1 standard drink = 0.6 oz pu re alcohol) social C Utilities Answer Date Recorded In the past 12 months has [employer], gas, oil, or water [employer] threatened to shut off services in your [...] often do you attend chur ch or jew services? Never 12/27/2023 Do you belong to any clubs o r organizations such as jewish groups, unions, fraternal or athletic groups, or [...] place to sleep or slept in a snf (including now)? No 12/27/2023 Personal Safety Answer Date Recorded Have you ever been in or are you currently in a harmful physical or emotional relationship or is someone making you feel afraid or unsafe? 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
--- OUTSIDE RECORDS SUMMARY | 2024-11-05 19:16 | XMS_ITS | Encounter Summary ---
Author Organization [facility] Healthcare Address [address] [place] [address] Care Team Providers Care Curing Finisher Name Role Phone No, Physician Primary Care Provider [phone] Encounter Details Date Type Department Care Team (Late st Contact Info) Description 09/17/2024 Telephone [facility] Radiology [address] [place] [address] Viry Stroud RN Social History Tobacco Use Types Packs/Day Years Used Date Smoking Tobacco: Former Cigarettes 1 11 969 1979 Passive Smoke Exposure: Never Smokeless Tobacco: Never Alcohol Use Standard Drinks/Week Comments Yes 14 (1 standard drink = 0.6 oz pu re alcohol) social AHC Utilities Answer Date Recorded In the past 12 months has [employer], gas, oil, or water [employer] threatened to shut off services in your [...] often do you attend chur ch or protestant services? 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 US at 1pm followed by CT venogram at 3:40. Pt to be NPO 2 hours prior to scan. Pt's agreeable and verbalized understanding. [place] direct line given for contact as needed. VALVE REPAIRER documented in this encounter Plan of Treatment Not on file documented as of this encounter Visit Diagnoses Not on filedocumented in this encounter Care Teams Curing Finisher Relationship Specialty Start Date End Date No, Physician PCP - General 05/26/24 documented as of this encounter
--- OUTSIDE RECORDS SUMMARY | 2024-11-05 19:16 | XMS_ITS | Encounter Summary ---
Author Organization [facility] Address [address] [place] [address] Phone Care Team Providers Care Reinsurance Claim Analyst Name Role Phone No, Physician Primary Care Provider [phone] Encounter Details Date Type Department Care Team (Late st Contact Info) Description 08/12/2024 Telephone [facility] Advanced Medicine ([facility] Urology [address] [facility] 11th [place] [address] [place] [address] Chad Vivas Social History Tobacco Use Types Packs/Day Years Used Date Smoking Tobacco: Former Cigarettes 1 11 1 969 - 1979 Passive Smoke Exposure: Never Smokeless Tobacco: Never Alcohol Use Standard Drinks/Week Comments Yes 14 (1 standard drink = 0.6 oz pu re alcohol) social AHC Utilities Answer Date Recorded In the past 12 months has [employer], gas, oil, or water [employer] threatened to shut off services in your [...] often do you attend chur ch or confucianist services? 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 To keep the catheter, the patient would need to see a urologist. The patient is currently scheduled on 08/14 with Corry Lopez Np. Before taking the call, Aug 14 was offered to Carey, and that's the appointment that she would like to keep unless Dr. Mcintosh can see the patient sooner since it is a time- sensitive matter. Carey can be reached at [phone] Patient Provider: Dr. Mcintosh Medical/Surgical Information: Outcome/Plan: documented in this encounter Plan of Treatment Not on file documented as of this encounter Visit Diagnoses Not on filedocumented in this encounter Care Teams Reinsurance Claim Analyst Relationship Specialty Start Date End Date No, Physician PCP - General 05/26/24 documented as of this encounter
--- OUTSIDE RECORDS SUMMARY | 2024-11-05 19:16 | XMS_ITS | Encounter Summary ---
Author Organization [facility] Healthcare Address [address] [place] [address] Care Team Providers Care Adobe Cq Developer Name Role Phone No, Physician Primary Care Provider [phone] Reason for Referral * Diagnostic Imaging (Routine) - Closed Specialty Diagnoses / Procedures Referred By Contac t Referred To Contact Radiology Diagnoses Swelling of both lower extremities Procedures IR Venogram Lower Extremity Bilateral Milan Crum MD [address] [address] Phone: tel: fax: [address] [phone] Referral ID Status Reason Start Date Expiration Date Visits Re quested Visits Authorized [id number] Closed 07/16/2024 08/15/2025 1 1 Reason for Visit * Diagnostic Imaging (Routine) - Closed Specialty Diagnoses / Procedures Referred By Contac t Referred To Contact Radiology Diagnoses Swelling of both lower extremities Procedures IR Venogram Lower Extremity Bilateral Milan Crum MD [address] [place] [address] Phone: tel: fax: [address] [phone] Referral ID Status Reason Start Date Expiration Date Visits Re quested Visits Authorized [id number] Closed 07/16/2024 08/15/2025 1 1 Encounter Details Date Type Department Care Team (Late st Contact Info) Description 08/04/2024 9:48 AM CDT - 08/04/2024 11:59 PM CDT Hospital Encounter [facility] Radiology [address] [facility] [place] [address] Milan Crum MD [address] [facility] [address] [place] [address] Jose Roche CRNA [address] [place] [address] Leda Dsouza MD [address] [place] [address] Swelling of both lower extremities Discharge Disposition: Discharge to home or self care Social History Tobacco Use Types Packs/Day Years Used Date Smoking Tobacco: Former Cigarettes 1 11 1 969 - 1979 Passive Smoke Exposure: Never Smokeless Tobacco: Never Alcohol Use Standard Drinks/Week Comments Yes 14 (1 standard drink = 0.6 oz pu re alcohol) social [facility] Utilities Answer Date Recorded In the past 12 months has [employer], gas, oil, or water [employer] threatened to shut off services in your [...] often do you attend chur ch or rastafarian services? 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 Not on file Not on file Not on file documented as of this encounter Last Filed Vital Signs Vital Sign Reading Time Taken Comments Blood Pressure 159/77 08/04/2024 4:50 PM CDT Pulse 67 08/04/2024 4:55 PM CDT Temperature 36 ??C (96.8 ??F) 08/04/2024 4:10 PM CDT Respiratory Rate 19 08/04/2024 4:55 PM CDT Oxygen Saturation 100% 08/04/2024 4:55 PM CDT Inhaled Oxygen Concentration - - Weight - - Height - - Body Mass Index - - documented in this encounter Discharge Instructions * Discharge Instructions* Ana Alfaro MD - 08/04/2024 4:33 PM CDT Interventional Radiology Outpatient Discharge Instructions/Note Diagnosis: Bilateral external iliac vein stenosis Procedure:Bilateral external iliac vein stenting Limitations: [] No lifting greater than 5 pounds with [] Right [] Left arm for 7 days. [x] You received medication that may affect your [...] by your doctor. [] Prescriptions given for: Lovenox 100 mg/ml SQ bid for 1 month Procedure Site Care: [] teaching sheet given [] Skin glue was used to close your incision. See teaching sheet. [] Keep site clean and dry. [] You may bathe or shower tomorrow. [] Change the dressing daily and if it becomes wet or dirty. [] Cover entire area with plastic and tape [...] or fever develops. (Please see teaching sheet). [] Call Interventional Radiology if there is leakage around the tube or the tube stops draining. To contact an Interventional Radiologist at [facility] call [phone] Sunday through Sunday from 7:30am-4:30pm. At all other times call [phone] and ask that the Interventional Radiologist be paged. To contact an Interventional Radiologist at [facility] call [phone] Sunday through Sunday from 7:30am-3:30pm. Special instructions: Please call Interventional Radiology for any procedure related questions or problems including: Extreme swelling or bruising at the site. Unusual drainage or bleeding from procedure site. Fever of 101.5 F for more than 24 hours. Severe procedure related pain. Follow up care: [] Return to Interventional Radiology on at Please come to: [] 3rd Floor [facility] [] 4th floor [facility] [] [facility] [] [facility] Please call [phone] to schedule a follow up appointment. You need to return in * Attachments The following attachments cannot be sent through Care Everywhere. * [facility] PATHWAY TO EXCELLENT CARE AFTER SURGERY documented in this encounter Medications at Time [...] ound healing Take 1 tablet by mouth electric sign assembler before breakfast ondansetron ODT (ZOFRAN-ODT) 4 mg [...] 1 tablet (20 mEq total) by mouth electric sign assembler before breakfast 4 senna-docusate (PERICOLACE) 8.6-50 mg Take 1 tablet by mouth nightly 4 tamsulosin (FLOMAX) 0.4 mg extended release capsule Take 1 capsule (0.4 mg total) by mouth daily 30 capsule 4 02/27/20 25 enoxaparin (LOVENOX) 100 mg/mL syringe Inject 1 mL (100 mg total) under the skin every 12 (twelve) hours 30 mL 4 09/10/20 24 Xarelto 20 mg tabletIndications:D VT Take 1 tablet (20 mg total) by mouth daily with breakfast 4 09/10/20 24 documented as of this encounter Ordered Prescriptions Prescription Sig Dispense Quantity Refills Last Filled Start Date End Date enoxaparin (LOVENOX) 100 mg/mL syringe Inject 1 mL (100 mg total) under the skin every 12 (twelve) hours 30 mL 08/04/2024 09/10/2024 documented in this encounter Discharge Disposition Disposition Code Departure Means Destination Discharge to home or self care documented in this encounter Miscellaneous Notes * Pre-Procedure Note - Ana Alfaro MD - 08/04/2024 12:00 PM CDT Images from the original note were not included. PRE-SEDATION ASSESSMENT/H&P Patient is a 74 y.o. male with chief complaint of bilateral lower extremity swelling. 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 Was started on xarelto with filter removed 06/19/24. Patient states that since 2023 he has experienced bilateral lower extremity swelling from the foot to the level of the hip. He is compliant with compression stocking usage which is of questionable efficacy. He is completely bound to his wheelchair or bed. No wounds on his feet or discoloration. Patient states that the swelling is inhibiting his progress with transfers. PMH: Past Medical History: Diagnosis Date Allergic rhinitis [...] cancer Pneumonia Pulmonary embolism (HCC) Seasonal allergies History of Sedation/Anesthesia Complications: No History of Difficult Airway: No PSH Past Surgical History: Procedure Laterality Date CYSTOSCOPY 10/13/2023 pyelogram retrograde CYSTOSCOPY Left 10/18/2023 ureter stent, pyelogram retrograde CYSTOSTOMY W/ BLADDER BIOPSY 11/2022 FL UPPER GI AIR CONTRAST W KUB Left 09/21/2023 INSERT VENA CAVA FILTER N/A 11/09/2023 LUMBAR LAMINECTOMY 10/23/2023 with fusion L4-5 MELANOMA RESECTION Right 2006 flank NEPHROSTOMY CATHETER CHANGE LEFT Left 02/05/2024 PERCUTANEOUS NEPHROSTOMY PCN LEFT Left 10/14/2023 removed 10/18/2023 PERCUTANEOUS NEPHROSTOMY PCN LEFT Left 12/26/2023 PROSTATECTOMY 2009 REMOVE VENA CAVA FILTER N/A 06/19/2024 REPLACEMENT TOTAL KNEE Right 2013 REPLACEMENT TOTAL KNEE Left 10/17/2021 REVISION TOTAL KNEE ARTHROPLASTY Right 09/30/2019 THORACIC LAMINECTOMY 11/08/2023 T5-L5, and laminectomy posterior lumbar, repair dural tear VASECTOMY over 30 years ago Social History: Social History Tobacco Use Smoking status: Former Current packs/day: 0.00 Average packs/day: 1 pack/day for 11.0 years (11.0 ttl pk-yrs) Types: Cigarettes Start date: 1968 Quit date: 1979 Years since quittin.7 Passive exposure: Never Smokeless tobacco: Never Substance and Sexual Activity Drug use: Yes Frequency: 2.0 times per week Types: Medical marijuana Sexual activity: Yes Partners: Female control/protection: Vasectomy Alcohol Use: Not At Risk (06/19/2024) AUDIT-C Frequency of Alcohol Consumption: 4 or more times a week Average Number of Drinks: 1 or 2 Frequency of Binge Drinking: Never Family History: Family History Problem Relation Age of Onset Heart disease Mother Lung disease Mother Alcohol abuse Father Cancer Father Heart disease Other Family history of cardiac disorder - (Added by TW Conv) Cancer Other Family history of malignant neoplasm - (Added by TW Conv) Anesthesia problems Neg Hx Current Meds: Current Outpatient Medications: acetaminophen (TYLENOL) 500 mg [...] mg total) under the skin every 12 (twelve)hours for 5 days Bridge to lovenox 5 days prior to procedure scheduled for 08/04/24., Disp: 10 mL, Rfl: 0 eszopiclone (LUNESTA) 1 mg tablet, Take 1 [...] multivitamin tablet, Take 1 tablet by mouth electric sign assembler before breakfast, Disp: , Rfl: ondansetron ODT [...] 1 tablet (20 mEq total) by mouth electric sign assembler before breakfast, Disp: , Rfl: senna-docusate (PERICOLACE) 8.6-50 mg, Take 1 tablet by mouth nightly (Patient taking differently: Take 1 tablet by mouth electric sign assembler before breakfast), Disp: , Rfl: tamsulosin (FLOMAX) [...] mouth daily with breakfast, Disp: , Rfl: Home Meds: HOME MEDICATIONS : acetaminophen (TYLENOL) 500 mg tablet acyclovir (ZOVIRAX) [...] extended release capsule Xarelto 20 mg tablet Allergies: No Known Allergies REVIEW OF SYSTEMS: Review of systems per HPI and otherwise all other systems are negative Vitals: There were no vitals filed for this visit. Pertinent Labs: Hematology Lab History Latest Ref Rng & [...] 0.8 - 3.3 K/cumm 1.[address] from 07/02/2024 PERTINENT PHYSICAL EXAM: Constitutional: alert and oriented x3 and no acute distress Lungs: Normal expansion. Clear to auscultation. No rales, rhonchi, or wheezing. Heart: Heart sounds are normal. Regular rate and rhythm without murmur, gallop or rub. Abdomen: Soft, non-tender, normal bowel sounds; no bruits, organomegaly or masses. Assessment:Will proceed Airway Exam: normal ASA Classification:Class 3: Patient with severe systemic disease Sedation Plan: Anesthesia PO status: Last PO: NPO since midnight Benefits, risks and alternatives of procedure and planned sedation have been discussed with the patient and/or their farm loan representative. All questions answered and they agree to proceed. documented in this encounter Plan of Treatment Not on file documented as of this encounter Procedures Procedure Name Priority Date/Time Associated Diagnosis Comments VENOGRAM LOWER EXTREMITY BILATERAL Schedule Routine, Read Routine (OP Routine) 08/04/2024 4:02 PM CDT Swelling of both lower extremities POCT GLUCOSE DEVICE Routine 08/04/2024 1:43 PM CDT documented in this encounter Results * IR Venogram Lower Extremity Bilateral (08/04/2024 4:02 PM CDT) Anatomical Region Laterality Modality Extremity Bilateral X-Ray Angiograph y 08/04/2024 6:11 PM CDT Impressions 08/05/2024 8:37 AM CDT Moderate stenosis of bilateral common iliac veins extending into the bilateral external iliac veins with successful stenting and angioplasty. PLAN: The patient will continue therapeutic Lovenox for one month. We will see him in clinic in 4 weeks and consider transitioning to normal in course. Dictated by: Ana Alfaro M.D. The radiology attending physician has personally reviewed this study, and had reviewed and/or edited this written report and agrees with it. Electronically signed by: Milan Crum M.D. 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 ATTENDING PRESENCE: Milan Crum M.D., the attending radiologist, was present from the beginning to the end of the procedure. SEDATION: The procedure was done under General Anesthesia. TECHNIQUE: ??The risks, benefits and alternatives were discussed and informed consent was obtained. Prior to beginning the procedure, [place] Protocol was performed to confirm the patient's identity and the planned procedure. ??Fluoroscopy time has been recorded in the electronic medical record. The right internal jugular vein was accessed using a micropuncture needle under real-time ultrasound guidance after an image of the patent vein was recorded. A 9 Somali 11 cm sheath was placed. Under fluoroscopic guidance, vert catheter was advanced into the left external iliac vein. The right common femoral vein was accessed using a micropuncture needle under real-time continuous ultrasound monitoring. An image of the patent axis vein was recorded. An 9 Somali 11 cm sheath was placed. Multiple digital subtraction venograms were performed to evaluate the IVC, bilateral common, and external iliac veins. Intravascular ultrasound was used to examine the inferior vena cava and bilateral iliac veins. Bilateral kissing iliac vein stents were placed, 14 mm x 150 mm Abre . Additional stents were placed bilaterally to extend the stents inferiorly, 14 mm x 120 mm Abre on the left and 14 mm x 100 mm Abre on the right. Intravascular ultrasound was repeated to evaluate stents position and IVC. Repeat venography was performed. At the end of the procedure, the catheters and sheaths were removed and manual compression was used to achieve hemostasis. ESTIMATED BLOOD LOSS: Minimal. CONDITION: Stable DISCHARGED TO: ??outpatient recovery. FINDINGS: The ultrasound image of the right common femoral vein and right internal jugular vein demonstrated patent vessels. Initial inferior venacavogram and pelvic venogram demonstrated narrowing within the inferior vena cava and bilateral external iliac veins. There was extensive collateralization. After stent placement, there was no residual stenosis. 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 ATTENDING PRESENCE: Milan Crum M.D., the attending radiologist, was present from the beginning to the end of the procedure. SEDATION: The procedure was done under General Anesthesia. TECHNIQUE: The risks, benefits and alternatives were discussed and informed consent was obtained. Prior to beginning the procedure, [place] Protocol was performed to confirm the patient's identity and the planned procedure. Fluoroscopy time has been recorded in the electronic medical record. The right internal jugular vein was accessed using a micropuncture needle under real-time ultrasound guidance after an image of the patent vein was recorded. A 9 Somali 11 cm sheath was placed. Under fluoroscopic guidance, vert catheter was advanced into the left external iliac vein. The right common femoral vein was accessed using a micropuncture needle under real-time continuous ultrasound monitoring. An image of the patent axis vein was recorded. An 9 Somali 11 cm sheath was placed. Multiple digital subtraction venograms were performed to evaluate the IVC, bilateral common, and external iliac veins. Intravascular ultrasound was used to examine the inferior vena cava and bilateral iliac veins. Bilateral kissing iliac vein stents were placed, 14 mm x 150 mm Abre . Additional stents were placed bilaterally to extend the stents inferiorly, 14 mm x 120 mm Abre on the left and 14 mm x 100 mm Abre on the right. Intravascular ultrasound was repeated to evaluate stents position and IVC. Repeat venography was performed. At the end of the procedure, the catheters and sheaths were removed and manual compression was used to achieve hemostasis. ESTIMATED BLOOD LOSS: Minimal. CONDITION: Stable DISCHARGED TO: outpatient recovery. FINDINGS: The ultrasound image of the right common femoral vein and right internal jugular vein demonstrated patent vessels. Initial inferior venacavogram and pelvic venogram demonstrated narrowing within the inferior vena cava and bilateral external iliac veins. There was extensive collateralization. After stent placement, there was no residual stenosis. IMPRESSION: Moderate stenosis of bilateral common iliac veins extending into the bilateral external iliac veins with successful stenting and angioplasty. PLAN: The patient will continue therapeutic Lovenox for one month. We will see him in clinic in 4 weeks and consider transitioning to normal in course. Dictated by: Ana Alfaro M.D. The radiology attending physician has personally reviewed this study, and had reviewed and/or edited this written report and agrees with it. Electronically signed by: Milan Crum M.D. us Milan Crum MD IMG IR PROCEDURES Final Re sult * POCT glucose (08/04/2024 1:43 PM CDT) Glucose, POC 95 70 - 199 mg/dL Blood 08/04/2024 1:43 PM CDT 08/04/2024 1:43 PM CDT us Milan Crum MD LAB POCT ORDERABLES - GILBERT CE Final Result [facility] Department [place] [address] documented in this encounter Visit Diagnoses Diagnosis Swelling of both lower extremities documented in this encounter Administered Medications Inactive Administered Medications - up to 3 most recent administrations Medication Order MAR Action Action Date Dose Rate Site acetaminophen (TYLENOL) tablet 1,000 mg 1,000 mg, oral, Once, On Sun08/04/24 at 1315, For 1 dose, Pre-Op, Indications: PainIndications:Pain Given 08/04/2024 1:01 PM CDT 1,000 mg lidocaine (PF) (XYLOCAINE) 10 mg/mL (1 %) preservative free injection As needed, Starting on Sun08/04/24 at 1340, Intra-Procedure (IR), Indications: Administration of Local AnesthesiaIndications:Admi nistration of Local Anesthesia Given 08/04/2024 1:48 PM CDT 2 mL Other (Comment) Given 08/04/2024 1:40 PM CDT 3 mL Ot her (Comment) sodium chloride 0.9% 0.9% infusion - ADS Override Pull Starting on Sun08/04/24 at 1039, For 1 dose, Created by cabinet override sodium chloride 0.9% infusion 30 mL/hr, intravenous, Continuous, Starting on Sun08/04/24 at 1115, Pre-Procedure (IR) Restarted 08/04/2024 3:52 PM CDT Rate/Dose Verify 08/04/2024 1:07 PM CDT 30 mL/h r New Bag 08/04/2024 11:00 AM CDT 30 mL/hr 30 mL/hr documented in this encounter Discontinued Medications Medication Sig Discontinue Reason Start Date End Da te enoxaparin (LOVENOX) 100 mg/mL syringe Inject 1 mL (100 mg total) under the skin every 12 (twelve) hours for 5 days Bridge to lovenox 5 days prior to procedure scheduled for 08/04/24. Stop Taking at Discharge 07/30/2024 08/04/2024 documented as of this encounter Orders Medications Ordered That Armando ht Not Have Been Administered Count Last Ordered Date First Ordered Date Carrier Fluids for Secondary Infusion - 0.9% Sodium Chloride 1 08/04/2024 fentaNYL (SUBLIMAZE) preserv ative free injection 25 mcg 1 08/04/2024 heparin 100 unit/mL injection 500 Units 1 0 08/04/2024 naloxone (NARCAN) 0.4 mg/mL injection 0.04-0.4 mg 1 08/04/2024 sodium chloride 0.9% flush 0.5-20 mL 2 07/08 sodium chloride 0.9% flush 10 mL 1 08/04/20 sodium chloride 0.9% flush 10-20 mL 1 08/04 sodium chloride 0.9% flush 5-10 mL 1 2023 Discharge Count Last Ordered Date First Orde red Date DISCHARGE PATIENT 1 08/04/2024 documented in this encounter Care Teams Adobe Cq Developer Relationship Specialty Start Date End Date No, Physician PCP - General 05/26/24 documented as of this encounter
--- OUTSIDE RECORDS SUMMARY | 2024-11-05 19:16 | XMS_ITS | Encounter Summary ---
Author Organization [facility] Address [address] [facility] [address] [place] [address] Phone Care Team Providers Care Quality Reviewer Name Role Phone No, Physician Primary Care Provider [phone] Reason for Referral * Diagnostic Imaging (Routine) - Closed Specialty Diagnoses / Procedures Referred By Manisha gale Referred To Contact Radiology Diagnoses Hydronephrosis with urinary obstruction due to renal calculus Procedures IR Suprapubic Catheter Insertion Consult to Interventional Radiology Temo Mcintosh MD [address] [facility] [place] [address] Phone: tel: fax: [address] [phone] Referral ID Status Reason Start Date Expiration Date Visits Re quested Visits Authorized [id number] Closed 09/05/2024 10/05/2025 1 1 Encounter Details Date Type Department Care Team (Late st Contact Info) Description 09/05/[address] [facility] [address] [place], [place] [id number] Temo Mcintosh MD [address] [facility] [place] [address] Hydronephrosis with urinary obstruction due to renal calculus (Primary Dx) Social History Tobacco Use Types Packs/Day Years Used Date Smoking Tobacco: Former Cigarettes 1 11 1979 Passive Smoke Exposure: Never Smokeless Tobacco: Never Alcohol Use Standard Drinks/Week Comments Yes 14 (1 standard drink = 0.6 oz pu re alcohol) social [facility] Utilities Answer Date Recorded In the [...] often do you attend chur ch or adventist services? 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 PLAN: Routine exchange in 12 weeks. Electronically signed by: Milan Crum M.D. Narrative 09/23/2024 12:52 PM FORGE HEATER EXAMINATION: ??PERCUTANEOUS SUPRAPUBIC CATHETER PLACEMENT HISTORY/INDICATION: ??74-year-old [...] was obtained. ??Prior to beginning the procedure, [place] Protocol was used to confirm the patient's [...] dilating the tract to ??16 Fr. ??A 16-Ugandan multipurpose cope loop catheter was then advanced [...] was obtained. Prior to beginning the procedure, [place] Protocol was used to confirm the patient's [...] dilating the tract to 16 Fr. A 16-Ugandan multipurpose cope loop catheter was then advanced [...] Electronically signed by: Milan Crum M.D. Temo Mcintohs MD IMG IR PROCEDURES Final Result documented in this encounter Visit Diagnoses Diagnosis Hydronephrosis with urinary obstruction due to renal calculus- Primary Hydronephrosis with urinary obstruction due to renal calculus documented in this encounter Care Teams Quality Reviewer Relationship Specialty Start Date End Date No, Physician PCP - General 05/26/24 documented as of this encounter
--- OUTSIDE RECORDS SUMMARY | 2024-11-05 19:16 | XMS_ITS | Encounter Summary ---
Author Organization [facility] Healthcare Address [address] [place] [address] Care Team Providers Care Hide Selector Name Role Phone No, Physician Primary Care Provider [phone] Encounter Details Date Type Department Care Team (Late st Contact Info) Description 09/22/2024 Telephone [facility] Imaging [address] [address] [facility] [facility] [place] [address] Leticia Donahue RN Social History Tobacco Use Types Packs/Day Years Used Date Smoking Tobacco: Former Cigarettes 1 11 969 - 1979 Passive Smoke Exposure: Never Smokeless Tobacco: Never Alcohol Use Standard Drinks/Week Comments Yes 14 (1 standard drink = 0.6 oz pu re alcohol) social C Utilities Answer Date Recorded In the past 12 months has [employer], gas, oil, or water [employer] threatened to shut off services in your [...] often do you attend chur ch or mu-ism services? 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 Not on file Not on file Not on file documented as of this encounter Miscellaneous Notes * Telephone Encounter - Leticia Donahue RN - 09/22/2024 10:11 AM CONTINUITY TESTER Confirmed with patient's Val and with Carey (nurse at rehab facility) Preprocedure Phone Call Procedure Time Verified: Yes Arrival Time Verified: Yes Procedure Location Verified: Yes Medical History Reviewed: No NPO Status Reinforced: Yes Ride and Caregiver Arranged: Yes Patient Knows to Bring Current Medications: No Patient Knows to Bring CPAP: No Is Patient on Home Ventilator?: No Is Patient on Blood Thinners?: Yes (xarelto) INUITY TESTER documented in this encounter Plan of Treatment Not on file documented as of this encounter Visit Diagnoses Not on filedocumented in this encounter Care Teams Hide Selector Relationship Specialty Start Date End Date No, Physician PCP - General 05/26/24 documented as of this encounter
--- OUTSIDE RECORDS SUMMARY | 2024-11-05 19:16 | XMS_ITS | Encounter Summary ---
Author Organization [facility] Address [address] [place] [address] Phone Care Team Providers Care Engraver Optical Frames Name Role Phone No, Physician Primary Care Provider [phone] Reason for Visit * Diagnostic Imaging (Routine) - Closed Specialty Diagnoses / Procedures Referred By Manisha t Referred To Contact Diagnoses Pain and swelling of left lower extremity Procedures US Vein Duplex Lower Extremity Bilateral Complete Corina Crum MD [address] [facility] [address] [place] [address] Phone: tel: fax: [address] [address] Referral ID Status Reason Start Date Expiration Date Visits Re quested Visits Authorized [id number] Closed 07/16/2024 08/15/2025 1 1 Encounter Details Date Type Department Care Team (Late st Contact Info) Description 08/01/2024 9:30 AM CDT Ancillary Procedure [facility] [address] [place] [address] Advanced Medicine 8th [place] [address] [place] [address] Social History Tobacco Use Types Packs/Day Years Used Date Smoking Tobacco: Former Cigarettes 1 11 969 - 1979 Passive Smoke Exposure: Never Smokeless Tobacco: Never Alcohol Use Standard Drinks/Week Comments Yes 14 (1 standard drink = 0.6 oz pu re alcohol) social C Utilities Answer Date Recorded In the past 12 months has [employer], gas, oil, or water [employer] threatened to shut off services in your [...] often do you attend chur ch or buddhist services? Never 12/27/2023 Do you belong to any clubs o r organizations such as judaism groups, unions, fraternal or athletic groups, or [...] place to sleep or slept in a mcfp (including now)? No 12/27/2023 Personal Safety Answer Date Recorded Have you ever been in or are you currently in a harmful physical or emotional relationship or is someone making you feel afraid or unsafe? 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 Not on file Not on file Not on file documented as of this encounter Plan of Treatment Not on file documented as of this encounter Procedures Procedure Name Priority Date/Time Associated Diagnosis Comments US VEIN DUPLEX LOWER EXTREMITY BILATERAL COMPLETE Schedule Routine, Read Routine (OP Routine) 08/01/2024 9:26 AM CDT Pain and swelling of left lower extremity documented in this encounter Results * US Vein Duplex Lower Extremity Bilateral Complete (08/01/2024 9:26 AM CDT) Anatomical Region Laterality Modality Vascular Bilateral Ultrasound 08/01/2024 9:01 AM CDT Narrative 08/01/2024 9:46 AM CDT [facility] - Department of Vascular Surgery, Vascular Laboratory [address] [place] [address] Lower Extremity Venous Ultrasound Report Patient Name: HIRA EVANS : 1950 (74y 1m) Study Date: 08/01/2024 9:01:27 AM Gender: M Tech: IA Location: [facility] Ref Provider: CORINA CRUM ?Quality: Adequate Order Provider: CORINA CRUM PROCEDURES: Vascular Report: Venous Duplex imaging was performed bilaterally in the lower extremities. The common femoral, femoral, popliteal, posterior tibial, peroneal veins were evaluated for patency, spontaneity and phasicity with Doppler, compression and augmentation maneuvers. Great saphenous vein proximal at the junction was evaluated with compression maneuvers. INDICATIONS: M79.605 Pain in left leg and M79.89 Other specified soft tissue disorders. FINDINGS: Performing Indigo Mixer: Shasta Watson RVT. Bilateral: Venous Doppler signals in the bilateral lower extremity are within normal limits for spontaneity and phasicity and respond normally to augmentation maneuvers. No evidence of deep vein thrombus by duplex, proximal to the calf. Comments: Exam performed in motorized wheelchair. CONCLUSIONS: 1. There is no evidence of acute deep vein thrombosis in the lower extremities bilaterally. Noninvasive venous studies cannot rule out isolated calf vein obstruction. HISTORY: Previous DVT. Lower extremity edema. PREVIOUS STUDIES: Previous study performed on 04-11-24, negative. DISCLAIMER: The study images and the final [...] that is provided above. Electronically Signed By: Tyrone Castano MD [facility] [phone] 2024-08-01 09:45:45 CDT Procedure Note Tyrone Castano MD - 08/01/2024 [facility] - Department of Vascular Surgery,Vascular Laboratory [address] [place] [address] Lower Extremity Venous Ultrasound Report Patient Name: HIRA EVANS : 1950 (74y 1m) Study Date: 08/01/2024 9:01:27 AM Gender: M Tech: IA Location: [facility] Ref Provider: CORINA CRUM Quality: Adequate Order Provider: CORINA CRUM PROCEDURES: Vascular Report: Venous Duplex imaging was performed bilaterally in the lower extremities.The common femoral, femoral, popliteal, posterior tibial, peroneal veins wereevaluated for patency, spontaneity and phasicity with Doppler, compression and augmentationmaneuvers. Great saphenous vein proximal at the junction was evaluated with compressionmaneuvers. INDICATIONS: M79.605 Pain in left leg and M79.89 Other specified soft tissuedisorders. FINDINGS: Performing Indigo Mixer: Shasta Watson RVT. Bilateral: Venous Doppler signals in the bilateral lower extremity are within normallimits for spontaneity and phasicity and respond normally to augmentation maneuvers.No evidence of deep vein thrombus by duplex, proximal to the calf. Comments: Exam performed in motorized wheelchair. CONCLUSIONS: 1. There is no evidence of acute deep vein thrombosis in the lowerextremities bilaterally. Noninvasive venous studies cannot rule out isolated calf veinobstruction. HISTORY: Previous DVT. Lower extremity edema. PREVIOUS STUDIES: Previous study performed on 04-11-24, negative. DISCLAIMER: The study images and the final report will be retained in the patientchart by the Vascular Laboratory for the legally required time period. This chartconstitutes the legal record of any testing performed. ATTESTATION: I have reviewed and interpreted the pertinent images and measurements ofthis study. I attest to the conclusions in the final report that is provided above. Electronically Signed By: Tyrone Castano MD [facility] [phone] 2024-08-01 09:45:45 CDT us Corina Crum MD IMG US PROCEDURES Final Re sult documented in this encounter Visit Diagnoses Not on filedocumented in this encounter Care Teams Engraver Optical Frames Relationship Specialty Start Date End Date No, Physician PCP - General 05/26/24 documented as of this encounter
--- OUTSIDE RECORDS SUMMARY | 2024-11-05 19:16 | XMS_ITS | Encounter Summary ---
Author Organization [facility] Address [address] [place] [address] Phone Care Team Providers Care New Home Sales Consultant Name Role Phone No, Physician Primary Care Provider Encounter Details Date Type Department Care Team (Late st Contact Info) Description 09/15/2024 10:00 AM PROPERTY HANDLER Office Visit [facility] Radiology, Interventional Radiology [address] [facility] [place] [id number] Milan Crum MD [address] [place], [place] [id number] Bilateral lower extremity edema (Primary Dx) Social History Tobacco Use Types Packs/Day Years Used Date Smoking Tobacco: Former Cigarettes 1 09 05 969 - 1979 Passive Smoke Exposure: Never Smokeless Tobacco: Never Alcohol Use Standard Drinks/Week Comments Yes 14 (1 standard drink = 0.6 oz pu re alcohol) social [facility] Utilities Answer Date Recorded In the past 12 months has [employer], gas, oil, or water [employer] threatened to shut off services in your [...] week 12/27/2023 How often do you attend [facility] or pentecostalism services? 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 Not on file Not on file documented as of this encounter Last Filed Vital Signs Vital Sign Reading Time Taken Comments Blood Pressure - - Pulse - - Temperature - - Respiratory Rate - - Oxygen Saturation - - Inhaled Oxygen Concentration - - Weight 90.7 kg (200 lb) 09/15/2024 10:33 AM PROPERTY HANDLER Height 172.7 cm (5' 8 ) 09/15/2024 10:33 AM PROPERTY HANDLER Body Mass Index 30.41 09/15/2024 10:33 AM PROPERTY HANDLER documented in this encounter Progress Notes * Jaret Valentine MD - 09/15/2024 10:00 AM CST Interventional Radiology Outpatient Visit Reason for visit: Follow-up post venoplasty and bilateral iliac stent placement Referring physician: Katharine Manzo* Primary care physician: Physician No HISTORY: 74 year old male with DVT and [...] No wounds on his feet or discoloration. 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 He was discharged on Lovenox. Interval history: Patient denies any improvement of bilateral lower extremity swelling after the procedure. There is some improvement of rtnle-bke-edkt edema with leg elevation. There is no significant improvement in thigh edema. He switched to oral anticoagulation after completing 1 month on Lovenox. PHYSICAL EXAM: General: in wheelchair, alert and conversant in NAD HEENT: normocephalic, no neck swelling Chest: non-labored respirations Cardiac: regular rate. GI: ND Extremities: Bilateral lower extremity pitting edema. DATA REVIEW: I have reviewed the patient???s past medical history (including surgical, family and social histories), medications, and allergies in the electronic medical record. The following notes were reviewed in detail: Katharine Hampton MD, Hematology, 08/25/2024 Corry Lopez NP, Urology, 08/14/2024 The following laboratory data was reviewed: Latest Reference Range & Units Most Recent WBC 3.8 - 9.9 K/cumm 4.3 09/02/24 11:13 Hgb 13.0 - 17.5 g/dL 13.4 09/02/24 11:13 Hct 38.9 - 50.3 % 39.8 09/02/24 11:13 Hct, POC 41.4 - 51.6 % 32.0 (L) 11/08/23 08:22 Plt 150 - 400 K/cumm 196 09/02/24 11:13 I have independently reviewed the following imaging: no pertinent imaging since prior intervention. MEDICAL DECISION MAKIN74 year old male with DVT and PE with contraindication to anticoagulation (epidural hematoma) with IVC filter placed 11/09/23. Was started on xarelto with filter removed 06/19/24, post bilateral iliac venoplasty and stenting on 08/04/2024, with persistent lower extremity edema without significant impro vement post intervention. Given the brisk inline flow within bilateral iliac veins and IVC post stent placement the etiology of his edema is less likely to be from iliocaval venous narrowing. Plan: - Continue oral anticoagulation. - CT abdomen/pelvis venogram to evaluate the patency of iliocaval stents. - Bilateral lower extremity duplex venogram with reflux studies. I have spent a total of 20 minutes personally reviewing the patient???s clinical data, interviewingand examining the patient, coordinating care and clinical documentation on this date 09/15/2024. Cosigned by Milan Crum MD at 09/15/2024 2:42 PM PROPERTY HANDLER ERTY HANDLER ERTY HANDLER Associated attestation - Milan Crum MD - 09/15/2024 2:42 PM PROPERTY HANDLER I have seen and examined the patient on 09/15/24. I agree with the findings and plan of care as documented in the resident's/fellow's note.. Milan Crum MD slice cutting machine operator helper and Surgery Vascular and Interventional Radiology Section [facility] in [place] documented in this encounter Plan of Treatment Not on file documented as of this encounter Visit Diagnoses Diagnosis Bilateral lower extremity edema- Primary documented in this encounter Care Teams New Home Sales Consultant Relationship Specialty Start Date End Date No, Physician PCP - General 05/26/24 documented as of this encounter
--- OUTSIDE RECORDS SUMMARY | 2024-11-05 19:16 | XMS_ITS | Encounter Summary ---
Author Organization [facility] Healthcare Address [address] [place] [address] Care Team Providers Care Redrawer Name Role Phone No, Physician Primary Care Provider [phone] Encounter Details Date Type Department Care Team (Late st Contact Info) Description 08/05/2024 Telephone [facility] Radiology [address] [place] [address] Viry Stroud RN Social History Tobacco Use Types Packs/Day Years Used Date Smoking Tobacco: Former Cigarettes 1 11 969 1979 Passive Smoke Exposure: Never Smokeless Tobacco: Never Alcohol Use Standard Drinks/Week Comments Yes 14 (1 standard drink = 0.6 oz pu re alcohol) social [facility] Utilities Answer Date Recorded In the past 12 months has [employer], gas, oil, or water [employer] threatened to shut off services in your [...] any clubs o r organizations such as adventist groups, unions, fraternal or athletic groups, or [...] on file 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 Per procedure plans, pt will continue therapeutic Lovenox for 1 month. Lois from [facility] made aware and verbalized understanding. Letter faxed with information. [place] direct line given for call back as needed. documented in this encounter Plan of Treatment Not on file documented as of this encounter Visit Diagnoses Not on filedocumented in this encounter Care Teams Redrawer Relationship Specialty Start Date End Date No, Physician PCP - General 05/26/24 documented as of this encounter
--- OUTSIDE RECORDS SUMMARY | 2024-11-05 19:16 | XMS_ITS | Encounter Summary ---
Author Organization [facility] Address [address] [facility] [facility] [address] [place] [address] Phone Care Team Providers Care Mental Health Practitioner Name Role Phone No, Physician Primary Care Provider [phone] Reason for Visit * Reason Comments Urinary Frequency Cath placed with kat ing facility Encounter Details Date Type Department Care Team (Late st Contact Info) Description 08/14/2024 3:00 PM CDT Office Visit [facility] Surgery [address] [place] [address] Corry Lopez NP [address] [facility] [place] [address] 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); History of prostate cancer Social History Tobacco Use Types Packs/Day Years Used Date Smoking Tobacco: Former Cigarettes 1 11 1 969 - 1979 Passive Smoke Exposure: Never Smokeless Tobacco: Never Alcohol Use Standard Drinks/Week Comments Yes 14 (1 standard drink = 0.6 oz pu re alcohol) social [facility] Utilities Answer Date Recorded In the past 12 months has [employer], gas, oil, or water company threatened to [...] on file 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 HPI: This is a 74 y/o male with a hx of prostatectomy, post surgery incontinence and had a sling placed.Patient had good relief for 6-7 years but began to have overactive bladder symptoms of urgency frequency and urge incontinence. There was concern for bladder neck obstruction. He had cystoscopy in 2020 that demonstrated patent bladder neck and dorsal false passage, after inspection of the bladder it was determined to be patent. Patient did have Botox in his bladder by Dr. Irene as well in 06/14/2023. He now has continuous sofia due to incontinence after a spinal fusion. Physical Examination: There were no vitals filed for this visit. Gen: NAD Ambulatory and Wheelchair Hearing: intact Neuro: Alert, conversation appropriate Skin: No rashes or lesions of exposed skin Head: normocephalic Neck: trachea midline. Pulm: respirations non-labored CV: extremities and mucous membranes pink Abdomen: soft. Non-tender. Non-distended. No flank or CVA TTP bilaterally. No sofia catheter in place. Results: none No results found. No results found for: PSA , SCRPSAT , SCRPSAS , SCRPSAF , SCRFPSA , TOTALPSA , [id number] Assessment and Plan: Letter written for patient today for him to continue care with a sofia catheter. Advised to follow up if needed. Thanks for this referral. Corry Lopez NP Please note: Semiautomatic Stitcher Operator completed using M*Modal Fluency Direct speaking software, therefore, variances/typos may occur. documented in this encounter Plan of Treatment Not on file documented as of this encounter Visit Diagnoses Diagnosis Urinary incontinence due to urethral sphincter incompetence- Primary Intrinsic (urethral) sphincter deficiency (ISD) History of prostate cancer Personal history of malignant neoplasm of prostate documented in this encounter Care Teams Mental Health Practitioner Relationship Specialty Start Date End Date No, Physician PCP - General 05/26/24 documented as of this encounter
--- OUTSIDE RECORDS SUMMARY | 2024-11-05 19:16 | XMS_ITS | Encounter Summary ---
Author Organization [facility] Healthcare Address [address] [place] [address] Care Team Providers Care Stroboroma Operator Name Role Phone No, Physician Primary Care Provider [phone] Encounter Details Date Type Department Care Team (Late st Contact Info) Description 09/16/2024 Telephone [facility] Imaging [address] [address] [place] [address] Leticia Donahue RN Social History Tobacco Use Types Packs/Day Years Used Date Smoking Tobacco: Former Cigarettes 1 11 969 - 1979 Passive Smoke Exposure: Never Smokeless Tobacco: Never Alcohol Use Standard Drinks/Week Comments Yes 14 (1 standard drink = 0.6 oz pu re alcohol) social C Utilities Answer Date Recorded In the past 12 months has [employer], gas, oil, or water [employer] threatened to shut off services in your [...] any clubs o r organizations such as scientologist groups, unions, fraternal or athletic groups, or [...] on file 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 CONCRETE SAW OPERATOR Gender Identity Not on file Sexual Orientation Not on file 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 Spoke to patient's Val who takes care of all the appointments. Reviewed with Val that procedure is scheduled for 09/23/24 at 12pm. Arrival time is 11am with powder truck driver ( will transport). Patient is on Xarelto and will need to hold itfor 2 days prior to procedure with the last dose being Sunday09/20/24. I also called facility ([facility]) where patient resides and spoke to nurse Patino and relayed all the above information. RETE SAW OPERATOR documented in this encounter Plan of Treatment Not on file documented as of this encounter Visit Diagnoses Not on filedocumented in this encounter Care Teams Stroboroma Operator Relationship Specialty Start Date End Date No, Physician PCP - General 05/26/24 documented as of this encounter
--- OUTSIDE RECORDS SUMMARY | 2024-11-05 19:16 | XMS_ITS | Encounter Summary ---
Author Organization [facility] Healthcare Address [address] [place] [address] Care Team Providers Care Paper Machine Tender Name Role Phone No, Physician Primary Care Provider Reason for Visit * Reason Comments Foot Injury Pt CC of right foot injury that has been getting worse. Encounter Details Date Type Department Care Team (Late st Contact Info) Description 09/02/2024 10:13 AM CDT - 09/02/2024 2:42 PM CDT Emergency [facility] Emergency Department [address] [place] [address] Wound of right foot (Primary Dx) Discharge Disposition: Discharge to home or self care Social History Tobacco Use Types Packs/Day Years Used Date Smoking Tobacco: Former Cigarettes 1 11 1 969 - 1980 Passive Smoke Exposure: Never Smokeless Tobacco: Never Alcohol Use Standard Drinks/Week Comments Yes 14 (1 standard drink = 0.6 oz pu re alcohol) social [employer] Utilities Answer Date Recorded In the past 12 months has [employer], gas, oil, or water [employer] threatened to shut off services in your [...] How often do you attend chur or druze services? 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 on file Not on file Not on file documented as of this encounter Last Filed Vital Signs Vital Sign Reading Time Taken Comments Blood Pressure 129/80 09/02/2024 2:40 PM CDT Pulse 64 09/02/2024 2:40 PM CDT Temperature 37 ??C (98.6 ??F) 09/02/2024 10:10 AM CDT Respiratory Rate 16 09/02/2024 10:10 AM CDT Oxygen Saturation 98% 09/02/2024 2:40 PM CDT Inhaled Oxygen Concentration - - Weight 90.7 kg (200 lb) 09/02/2024 10:10 AM CDT Height 172.7 cm (5' 8 ) 09/02/2024 10:10 AM CDT Body Mass Index 30.41 09/02/2024 10:10 AM CDT documented in this encounter Discharge Instructions * Discharge Instructions* Eula Lopez DNP - 09/02/2024 2:21 PM CDT You were seen in the emergency department today with concern for a wound on your right foot. As discussed the x-ray was negative for osteomyelitis. Your blood work was negative for elevated white blood count to indicate infection. The blood cultures are still pending and if they have any results she will receive a call. Recommended to complete your current antibiotic regimen and follow-up with primary care. If symptoms persist or worsen return to the emergency department. * Attachments The following attachments cannot be sent through Care Everywhere. 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 operator before breakfast ondansetron ODT (ZOFRAN-ODT) 4 mg [...] 1 tablet (20 mEq total) by mouth carpet yarn winder operator before breakfast 4 senna-docusate (PERICOLACE) 8.6-50 mg Take 1 tablet by mouth nightly 4 tamsulosin (FLOMAX) 0.4 mg extended release capsule Take 1 capsule (0.4 mg total) by mouth daily 30 capsule 11 4 02/27/20 25 enoxaparin (LOVENOX) 100 mg/mL syringe Inject 1 mL (100 mg total) under the skin every 12 (twelve) hours 30 mL 1 4 09/10/20 24 Xarelto 20 mg tabletIndications:D VT Take 1 tablet (20 mg total) by mouth daily with breakfast 4 09/10/20 24 documented as of this encounter Discharge Disposition Disposition Code Departure Means Destination Comment s Discharge to home or self care documented in this encounter ED Notes * Eula Lopez, JUAN - 09/02/2024 10:30 AM CDT HPI Chief Complaint Patient presents with Foot Injury Pt CC of right foot injury that has been getting worse. The patient is a 74-year-old male with past medical history significant for GERD, hypertension, prostate cancer, PE/DVT, cauda equina, who presents to the emergency department today with concern regarding a wound on his right foot that is worsening. The patient states that he has been seen by his primary care and was referred on to Wound Care but states that he has not been able to get in and does not have an appointment for another 3 weeks. The patient does verbalize that he is taking oral antibiotics. He states that he is concerned because he believes the wound is getting to the bone at this time. The patient reports that he has been on cefpodoxime for approximately 1 week. His reports that initially the wound started out as a bruised on the lateral part of his right foot and hasworsened from there. He states that he does live in a facility and their wound care has been seeinghim regularly. He states they do not believe that the wound has worsened but states that they didan x-ray of it on Sunday and it was believed that it was in the bone . History provided by: Patient ceramist used: No Patient History: Patient Active Problem List Diagnosis Date Noted Nephrolithiasis 12/25/2023 DVT (deep venous thrombosis) ([facility]) ([facility]) 11/29/2023 Anemia 11/29/2023 Paraspinal hematoma 11/29/2023 Hyponatremia 11/29/2023 Elevated transaminase level 11/29/2023 Lower extremity edema 11/29/2023 Scrotal swelling 11/29/2023 Seizure ([facility]) 11/29/2023 Prediabetes 11/29/2023 Kidney stone 11/09/2023 Paralysis of both lower limbs ([facility]) ([facility]) 11/07/2023 Pulmonary embolism ([facility]) 10/26/2023 S/P spinal fusion 10/23/2023 Cardiac arrest ([facility]) 10/23/2023 Left perinephric collection, 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 10/15/2023 Ureteral colic 10/13/2023 UTI (urinary tract infection) 10/13/2023 Hydronephrosis with urinary obstruction due to renal calculus 10/12/2023 Lumbar radiculopathy 10/08/2023 Gross hematuria 10/18/2022 Bladder neck obstruction 10/17/2022 Lesion of urinary bladder 10/17/2022 Prostate cancer ([facility]) 10/17/2022 HTN (hypertension) 10/10/2021 Risk factors for obstructive sleep apnea 10/10/2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 Specifically, he developed right gaze deviation and bilateral tonic clonic movements. This was followed by a cardiac arrest requiring CPR. Cauda equina compression ([facility]) DVT (deep venous thrombosis) ([facility]) ([facility]) GERD (gastroesophageal reflux disease) History of melanoma Hypertension Kidney stone Paraspinal hematoma 11/29/2023 Personal history of prostate cancer Pneumonia Pulmonary embolism ([facility]) Seasonal allergies Past Surgical History: Procedure Laterality [...] date: 1968 Quit date: 1979 Years since quittin.8 Passive exposure: Never Smokeless tobacco: Never Vaping Use Vaping status: Never Used Substance and Sexual Activity Alcohol use: Yes Alcohol/week: 14.0 standard drinks of alcohol Types: 14 Glasses of wine per week Comment: social Drug use: Yes Frequency: 2.0 times per week Types: Medical marijuana Sexual activity: Yes Partners: Female control/protection: Vasectomy Social History Social History Narrative Not on file Review of Systems Review of Systems Constitutional: Negative for chills and fever. HENT: Negative for ear pain and sore throat. Eyes: Negative for pain and visual disturbance. Respiratory: Negative for cough and shortness of breath. Cardiovascular: Negative for chest pain and palpitations. Gastrointestinal: Negative for abdominal pain and vomiting. Genitourinary: Negative for dysuria and hematuria. Musculoskeletal: Negative for arthralgias and back pain. Skin: Positive for wound. Negative for color change and rash. Neurological: Negative for seizures and syncope. All other systems reviewed and are negative. Physical Exam ED Triage Vitals [09/02/24 1010] Temp Pulse Resp BP SpO2 37 ??C (98.6 ??F) 72 16 117/70 99 % Temp src Heart Rate Source Patient Position BP Location FiO2 (%) Oral -- -- -- -- Height Height Method Weight Weight Method 1.727 m (5' 8 ) Stated 90.7 kg (200 lb) Stated Physical Exam Vitals and nursing note reviewed. Constitutional: General: He is not in acute distress. Appearance: He is well-developed. HENT: Head: Normocephalic and atraumatic. Eyes: Conjunctiva/sclera: Conjunctivae normal. Cardiovascular: Rate and Rhythm: Normal rate and regular rhythm. Heart sounds: No murmur heard. Pulmonary: Effort: Pulmonary effort is normal. No respiratory distress. Breath sounds: Normal breath sounds. Abdominal: Palpations: Abdomen is soft. Tenderness: There is no abdominal tenderness. Musculoskeletal: General: No swelling. Cervical back: Neck supple. Skin: General: Skin is warm and dry. Capillary Refill: Capillary refill takes less than 2 seconds. Findings: Wound (Right dorsolateral foot) present. Neurological: Mental Status: He is alert. Mental status is at baseline. Comments: Paraplegic Psychiatric: Mood and Affect: Mood normal. MDM Medical Decision Making HPI and comorbidities: The patient is a 74-year-old male with past medical history significant for GERD, hypertension, prostate cancer, PE/DVT, cauda equina, who presents to the emergency department today with concern regarding a wound on his right foot that is worsening. The patient states that hehas been seen by his primary care and was referred on to Wound Care but states that he has not beenable to get in and does not have an appointment for another 3 weeks. The patient does verbalize that he is taking oral antibiotics. He states that he is concerned because he believes the wound is getting to the bone at this time. The patient reports that he has been on cefpodoxime for approximately1 week. His reports that initially the wound started out as a bruised on the lateral part ofhis right foot and has worsened from there. He states that he does live in a facility and their wound care has been seeing him regularly. He states they do not believe that the wound has worsened but states that they did an x-ray of it on Sunday and it was believed that it was in the bone . Exam findings: No leukocytosis, no electrolyte abnormality, X-ray was negative for osteomyelitis Differential Dx and plan: osteomyelitis versus cellulitis versus pressure wound As discussed with patient and family there was no evidence of underlying osteomyelitis. The patient's white blood count was normal. Blood cultures are pending and they will receive a call if there isany indication. Recommended that he follow-up with his primary care and continue using wound care services at the facility he is currently at. Recommended that he continue his current antibiotic and complete the entire regimen. If the symptoms persist or worsen return to emergency department for further evaluation. ED Course as of 09/02/24 1425 Time: 09/02 1120 Value: XR Foot Right 3 or More Views Comment: FINDINGS: There appears to be a wound [...] Electronically signed by: Jose Enrique Aguirre D.O. By: Eula Lopez DNP Time: 09/02 1138 Value: CBC with auto differential(!): WBC 4.3 Hgb 13.4 Hct 39.8 Plt 196 MPV 10.4 RBC 4.12(!) MCV 96.6(!) MCH 32.5 MCHC 33.7 RDW CV 11.9 RDW SD 42.3 NRBC abs 0.00 Comment: No leukocytosis By: Eula Lopez DNP Time: 09/02 1139 Value: Differential, auto: Neutrophil abs 2.0 Imm gran abs 0.0 Lymphocyte abs 1.6 Monocyte abs 0.3 Eosinophil abs 0.3 Basophil abs 0.0 Neutrophil pct 46.5 Imm gran pct 0.2 Lymphocyte pct 37.5 Monocyte pct 7.9 Eosinophil pct 7.4 Basophil pct 0.5 Comment: (Reviewed) By: Eula Lopez DNP Time: 09/02 1302 Value: Erythrocyte sedimentation rate(!): Erythrocyte sedimentation rate 39(!) Comment: (Reviewed) By: Eula Lopez DNP Time: 09/02 1304 Value: CRP (acute phase): CRP 6.7 Comment: (Reviewed) By: Eula Lopez DNP Final diagnoses: Wound of right foot Eula Lopez DNP 09/02/24 1425 * Parvez Berrios RN - 09/02/2024 10:07 AM CDT Pt CC of right foot pain with open wound. Pt said that his doctor had scheduled an out patient wound care but can not get in for another 3 wks. Patient stated they wound is now up into the bone. Pt stated he has been taking antibiotics for the past week. documented in this encounter Plan of Treatment Not on file documented as of this encounter Procedures Procedure Name Priority Date/Time Associated Diagnosis Comments DIFFERENTIAL AUTO STAT 09/02/2024 11: 13 AM CDT CBC WITH AUTO DIFFERENTIAL STAT 09/02/2024 11:13 AM CDT BLOOD CULTURE STAT 09/02/2024 11:13 AM CDT BLOOD CULTURE STAT 09/02/2024 11:13 AM CDT ERYTHROCYTE SEDIMENTATION RATE STAT 09/02/2024 11:13 AM CDT CRP (ACUTE PHASE) STAT 09/02/2024 11: 13 AM CDT XR FOOT RIGHT 3 OR MORE VIEWS ED 09/02/2024 11:03 AM CDT documented in this encounter Results * Differential, auto (09/02/2024 11:13 AM CDT) [...] revised on 2018. Lymphocyte pct 37.5 % CERNER [facility] Comment: Interpretive Data Percent cell count reference ranges are not reported, since discordance with absolute values may lead to misinterpretation of CBC data. Current Interpretive Data was last revised on 2018. Monocyte pct 7.9 % CERNER [facility] Comment: Interpretive Data Percent cell count reference ranges are not reported, since discordance with absolute values may lead to misinterpretation of CBC data. Current Interpretive Data was last revised on 2018. Eosinophil pct 7.4 % CERNER [facility] Comment: Interpretive Data Percent cell count reference ranges are not reported, since discordance with absolute values may lead to misinterpretation of CBC data. Current Interpretive Data was last revised on 2018. Basophil pct 0.5 % CERNER [facility] Comment: Interpretive Data Percent cell count reference ranges are not reported, since discordance with absolute values may lead to misinterpretation of CBC data. Current Interpretive Data was last revised on 2018. Blood 09/02/2024 11:1 3 AM CDT 09/02/2024 11:[address] [facility] BLOOD ORDERABLES Fide l Result Performing Organization Address [facility] Co de Phone Number LAURA MARADIAGACH [phone] [facility] [email or web address] [place], [place] [id number] * CRP (acute phase) (09/02/2024 11:13 AM CDT) Pathologist [facility] CRP 6.7 <=10.0 mg/L Blood 09/02/2024 11:1 3 AM CDT 09/02/2024 11:[address] [facility] BLOOD ORDERABLES Fide l Result Performing Organization Address [facility] de Phone Number [facility] [id number] [address] [employer] [facility] [email or web address] [place], [place] [id number] * (ABNORMAL) Erythrocyte sedimentation rate (09/02/2024 11:13 AM CDT) Pathologist [facility] Erythrocyte sedimentation rate 39(H) 1 - 20 mm/hr Blood 09/02/2024 11:1 3 AM CDT 09/02/2024 11:[address] [facility] BLOOD ORDERABLES Fide l Result Performing Organization Address [facility] Co de Phone Number LAURA ZARAGOZACH [phone] [facility] [email or web address] [address] * (ABNORMAL) CBC with auto differential (09/02/2024 11:13 AM CDT) Pathologist [facility] WBC 4.3 3.8 - 9.9 K/cumm Hgb 13.4 13.0 - 17.5 g/dL [facility] Hct 39.8 38.9 - 50.3 % [facility] Plt 196 150 - 400 K/cumm [facility] MPV 10.4 9.1 - 12.3 fL LAURA ESPINOZA RBC 4.12(L) 4.30 - 5.80 M/cumm LAURA ESPINOZA MCV 96.6(H) 81.3 - 96.4 fL LAURA ZARAGOZASHANIQUE MCH 32.5 27.1 - 33.3 pg LAURA ESPINOZA MCHC 33.7 32.3 - 35.7 g/dL [facility] RDW CV 11.9 11.1 - 14.9 % [facility] RDW SD 42.3 35.7 - 48.1 fL [facility] NRBC abs 0.00 0.00 - 0.01 K/cumm [facility] Blood (Blood, Venous) 09/02/2024 11:13 AM CDT 09/02/2024 11:[address] [facility] BLOOD ORDERABLES Fide rick Result [facility] [address] [facility]. Department [place] [address] * Blood culture Blood (09/02/2024 11:13 AM CDT) Report Final Report: No growth Comment:Testing performed by : [facility], [facility], [place]., [address] Blood 09/02/2024 11:1 3 AM CDT 09/02/2024 12:40 PM CDT Narrative LAURA MARADIAGA - 09/07/2024 1:00 PM CONVALESCENT SITTER Collection->Peripheral Interpretive Data 1. Blood cultures are incubated and monitored continuously for 5 days (120 hours). The first negative report is issued within 24 hours of receipt in the laboratory. 2. All positive cultures are resulted and called to physicians/care providers as soon as they are detected. 3. A rapid molecular test for organism identification may be performed using the Adey[employer] Blood Culture Identification panel. This assay detects microbial DNA in a blood culture broth. This assay has been cleared by the [place] Food and Drug Administration and its performance characteristics have been verified by the [facility]. Interpretive data was last revised on December 07, 2022. Eula Lopez [facility] MICROBIOLOGY - GENERA L ORDERABLES Final Result Performing Organization Address [facility] Co de Phone Number LAURA ZARAGOZAWCH [phone] [address] Department [email or web address] [address] * Blood culture Blood (09/02/2024 11:13 AM CDT) Report Final Report: No growth Comment:Testing performed by : [facility], [facility], [place]., [address] Blood 09/02/2024 11:1 3 AM CDT 09/02/2024 12:40 PM CDT Narrative BAKARIMICHAEL ZARAGOZAMENA - 09/07/2024 1:00 PM CONVALESCENT SITTER Collection->Peripheral Interpretive Data 1. Blood cultures are incubated and monitored continuously for 5 days (120 hours). The first negative report is issued within 24 hours of receipt in the laboratory. 2. All positive cultures are resulted and called to physicians/care providers as soon as they are detected. 3. A rapid molecular test for organism identification may be performed using the Adey[employer] Blood Culture Identification panel. This assay detects microbial DNA in a blood culture broth. This assay has been cleared by the [place] Food and Drug Administration and its performance characteristics have been verified by the [facility]. Interpretive data was last revised on December 07, 2022. Eula Lopez [facility] MICROBIOLOGY - GENERA L ORDERABLES Final Result Performing Organization Address [facility] Co de Phone Number LAURA BJWCH [id number] [address] [email or web address] [address] * XR Foot Right 3 or More [...] by: Jose Enrique Aguirre D.O. Eula Lopez DNP IMG XR PROCEDURES Final R esult documented in this encounter Visit Diagnoses Diagnosis Wound of right foot- Primary documented in this encounter Care Teams Paper Machine Tender Relationship Specialty Start Date End Date No, Physician PCP - General 05/26/24 documented as of this encounter
--- OUTSIDE RECORDS SUMMARY | 2024-11-05 19:17 | XMS_ITS | Encounter Summary ---
Author Organization [facility] Healthcare Address [address] [place] [address] Care Team Providers Care Rail Loader Name Role Phone No, Physician Primary Care Provider [phone] Encounter Details Date Type Department Care Team (Late st Contact Info) Description 07/15/2024 Telephone [facility] Radiology [address] [place] [address] Viry Stroud RN Social History Tobacco Use Types Packs/Day Years Used Date Smoking Tobacco: Former Cigarettes 1 11 969 1979 Passive Smoke Exposure: Never Smokeless Tobacco: Never Alcohol Use Standard Drinks/Week Comments Yes 14 (1 standard drink = 0.6 oz pu re alcohol) social [employer] Utilities Answer Date Recorded In the past 12 months has [employer], gas, oil, or water [employer] threatened to shut off services in your [...] any clubs o r organizations such as rastafari groups, unions, fraternal or athletic groups, or [...] place to sleep or slept in a mcc (including now)? No 12/27/2023 Personal Safety Answer Date Recorded Have you ever been in or are you currently in a harmful physical or emotional relationship or is someone making you feel afraid or unsafe? 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 NC direct line left for call back. Pt scheduled for US on 07/31/24 at 1430 - W per pt's request. Venogram/stenting w/anes scheduled for 08/04/24 at 1200 with 1000 arrival to [facility]. Pt instructed to be NPO 6 hours prior to procedure. Will bridge to lovenox BID 5 days prior to procedure, ordered to preferred pharmacy. CPAP previously completed 06/02/24.Pt's agreeable and verbalized understanding. Pt letter mailed to address as well as pt's nursing facility ([place], [place]). Nursing facility aware of lovenox bridge 5 days prior to procedure on 08/04/24. IR GENERAL PRE-PROCEDURE SCREENING Risk Level of Procedure: medium Procedure: Venogram Date of Procedure if scheduled: 08/04/24 Arrival Time: 1000 Location of procedure:[facility] Indication for Procedure: Lower extremity swelling IR Attending: Radames Insurance carrier verified? Yes Appt info letter sent: Yes ALLERGIES: No Known Allergies Infection Flag: Does the patient have any of the following medical conditions? Sedation: Previous problems with anesthesia or sedation? No Cardiovascular/Respiratory: None Lung: None Renal/Liver/GI: None Bleeding/Clotting: Blood clot within previous year Most recent coag results: PLT= PT/INR= PTT= Date of redraw (if applicable): Medications: * * * For blood thinners/antiplatelet agents, REVIEW MED REC AND LIST THEM APPROPRIATE * * * Blood thinners: Rivaroxaban (Xarelto) bridge to lovenox 5 days prior to procedure. Patient & Procedure Risk Assessment Proceed with scheduling documented in this encounter Plan of Treatment Not on file documented as of this encounter Visit Diagnoses Not on filedocumented in this encounter Care Teams Rail Loader Relationship Specialty Start Date End Date No, Physician PCP - General 05/26/24 documented as of this encounter
--- OUTSIDE RECORDS SUMMARY | 2024-11-05 19:17 | XMS_ITS | Encounter Summary ---
Author Organization [facility] Address [address] [place] [address] Care Team Providers Care Outpatient Physical Therapist Assistant Name Role Phone No, Physician Primary Care Provider Reason for Referral * MRI/CAT/PET Scan (Routine) - Closed Specialty Diagnoses / Procedures Referred By Contac t Referred To Contact Radiology Diagnoses Bilateral lower extremity edema Procedures CT Abdomen Pelvis W Contrast Milan Crum MD [address] [place] [address] Phone: tel: fax: [place] [phone] [place] [address] Referral ID Status Reason Start Date Expiration Date Visits Re quested Visits Authorized [id number] Closed 06/20/2024 07/20/2025 1 1 Reason for Visit * MRI/CAT/PET Scan (Routine) - Closed Specialty Diagnoses / Procedures Referred By Contac t Referred To Contact Radiology Diagnoses Bilateral lower extremity edema Procedures CT Abdomen Pelvis W Contrast Milan Crum MD [address] [place] [address] Phone: tel: fax: [place] [phone] [place] [address] Referral ID Status Reason Start Date Expiration Date Visits Re quested Visits Authorized [id number] Closed 06/20/2024 07/20/2025 1 1 Encounter Details Date Type Department Care Team (Latest Contact Info) Description 07/02/2024 2:50 PM CDT - 07/02/2024 11:59 PM CDT Hospital Encounter [facility] [id number] [address] [address] Bilateral lower extremity edema Discharge Disposition: Discharge [...] Recorded In the past 12 months has [employer], gas, oil, or water company threatened to [...] often do you attend chur ch or hinduism services? Never 12/27/2023 Do you belong to any clubs o r organizations such as protestant groups, unions, fraternal or athletic groups, or [...] place to sleep or slept in a intermediate (including now)? No 12/27/2023 Personal Safety Answer Date Recorded Have you ever been in or are you currently in a harmful physical or emotional relationship or is someone making you feel afraid or unsafe? 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 ??Interval improvement in mild left hydroureteronephrosis with transition point near the mid ureter, similar compared to prior. There is mild persistent urothelial thickening and enhancement. 2. ??Interval removal of inferior vena cava filter. ??No definite evidence of deep vein thrombosis although evaluation is limited due to the phase of contrast. Dictated by: Oneyda Solorzano MD The radiology attending physician has personally reviewed this study, and had reviewed and/or edited this written report and agrees with it. Electronically signed by: Carlos Manuel Saab M.D. Narrative 07/02/2024 3:40 PM CDT EXAMINATION: ??Computed tomography of the abdomen and pelvis with intravenous contrast HISTORY: Lower extremity swelling TECHNIQUE: ??Transaxial computed tomographic images of the abdomen and pelvis ??were obtained with intravenous contrast according to the standard protocol after the uneventful administration of 100 mL Opti-Ray 350 intravenous contrast. COMPARISON: 12/25/2023 FINDINGS: ?? Imaged lung bases are clear. ??Imaged heart is normal in size without pericardial effusion. Multiple scattered hepatic cysts. ??The portal veins and superior mesenteric vein are patent. ??No evidence of biliary ductal dilatation. ??The gallbladder, adrenal glands, spleen, and pancreas are normal. ??The stomach and duodenum are normal. The kidneys enhance symmetrically. ??Nonobstructing renal stone is noted on the right. ??Mild left hydroureteronephrosis is improved compared to prior with redemonstrated transition point near the mid ureter, similar compared to prior best seen on series 4 image 49. There is mild urothelial thickening and enhancement. ??The urinary bladder is decompressed with Harris catheter in place. Fiducial markers noted in the prostate bed. ??The bowel is normal in caliber without evidence of obstruction. ??The appendix is normal. The abdominal aorta is normal in caliber. ??Interval removal. ??Vena cava filter. ??No definite evidence recurrent deep vein thrombosis although evaluation is limited due to the phase of contrast. ??No suspicious abdominal or pelvic lymphadenopathy. ??No pneumoperitoneum. No free fluid in the abdomen or pelvis. ??Mild diffuse body wall edema. No suspicious osseous lesions. ??Combined posterior interbody fusion of L4-L5. Procedure Note Carlos Manuel Saab MD - 07/02/2024 EXAMINATION: Computed tomography of the abdomen and pelvis with intravenous contrast HISTORY: Lower extremity swelling TECHNIQUE: Transaxial computed tomographic images of the abdomen and pelvis were obtained with intravenous contrast according to the standard protocol after the uneventful administration of 100 mL Opti-Ray 350 intravenous contrast. COMPARISON: 12/25/2023 FINDINGS: Imaged lung bases are clear. Imaged heart is normal in size without pericardial effusion. Multiple scattered hepatic cysts. The portal veins and superior mesenteric vein are patent. No evidence of biliary ductal dilatation. The gallbladder, adrenal glands, spleen, and pancreas are normal. The stomach and duodenum are normal. The kidneys enhance symmetrically. Nonobstructing renal stone is noted on the right. Mild left hydroureteronephrosis is improved compared to prior with redemonstrated transition point near the mid ureter, similar compared to prior best seen on series 4 image 49. There is mild urothelial thickening and enhancement. The urinary bladder is decompressed with Harris catheter in place. Fiducial markers noted in the prostate bed. The bowel is normal in caliber without evidence of obstruction. The appendix is normal. The abdominal aorta is normal in caliber. Interval removal. Vena cava filter. No definite evidence recurrent deep vein thrombosis although evaluation is limited due to the phase of contrast. No suspicious abdominal or pelvic lymphadenopathy. No pneumoperitoneum. No free fluid in the abdomen or pelvis. Mild diffuse body wall edema. No suspicious osseous lesions. Combined posterior interbody fusion of L4-L5. IMPRESSION: 1. Interval improvement in mild left hydroureteronephrosis with transition point near the mid ureter, similar compared to prior. There is mild persistent urothelial thickening and enhancement. 2. Interval removal of inferior vena cava filter. No definite evidence of deep vein thrombosis although evaluation is limited due to the phase of contrast. Dictated by: Oneyda Solorzano MD The radiology attending physician has personally reviewed this study, and had reviewed and/or edited this written report and agrees with it. Electronically signed by: Carlos Manuel Saab M.D. Milan Crum MD IM CT PROCEDURES Final Re sult documented in this encounter Visit Diagnoses Diagnosis Bilateral lower extremity edema documented in this encounter Administered Medications Inactive Administered Medications - up to 3 most recent administrations Medication Order MAR Action Action Date Dose Rate Site ioversoL (OPTIRAY 350) injection 0.01-500 mL 0.01-500 mL, intravenous, Once in imaging, contrast, Starting on 07/02/24 at 1453, For 1 dose Contrast Given 07/02/2024 3:07 PM CDT 100 mL documented in this encounter Orders Medications Ordered That Armando ht Not Have Been Administered Count Last Ordered Date First Ordered Date ioversoL (OPTIRAY 350) injec tion 0.01-500 mL 1 07/02/2024 documented in this encounter Care Teams Outpatient Physical Therapist Assistant Relationship Specialty Start Date End Date No, Physician PCP - General 05/26/24 documented as of this encounter
--- OUTSIDE RECORDS SUMMARY | 2024-11-05 19:17 | XMS_ITS | Encounter Summary ---
Author Organization [facility] Address [address] [place] [address] Phone Care Team Providers Care Tin Can Laborer Name Role Phone No, Physician Primary Care Provider [phone] Encounter Details Date Type Department Care Team (Late st Contact Info) Description 06/09/2024 Orders Only [facility] Surgery [address] [place] [address] Temo Mcintosh MD [address] [facility] [place] [address] Nephrolithiasis (Primary Dx) Social History Tobacco Use Types Packs/Day Years Used Date Smoking Tobacco: Former Cigarettes 1 11 1 969 - 1979 Passive Smoke Exposure: Never Smokeless Tobacco: Never Alcohol Use Standard Drinks/Week Comments Yes 14 (1 standard drink = 0.6 oz pu re alcohol) social AHC Utilities Answer Date Recorded In the past 12 months has [employer], gas, oil, or water [employer] threatened to shut off services in your [...] week 12/27/2023 How often do you attend [facility] or scientology services? Never 12/27/2023 Do you belong to any clubs o r organizations such as nondenominational groups, unions, fraternal or athletic groups, or school groups? No 12/27/2023 How often do you attend meet ings of the clubs or organizations you belong to? Never 12/27/2023 Are you , , di vorced, , never , or living with a partner? 12/27/2023 AUDIT-C Answer Date Recorded Q1: How often do you have a drink containing alcohol? 4 or more times a week 05/28/2024 Q2: How many drinks containi ng alcohol do you have on a typical day when you are drinking? 1 or 2 Q3: How often do you have si x or more drinks on one occasion? Never 05/28/2024 Overall Financial Resource Strain (CARDIA) Answe r [...] making you feel afraid or unsafe? 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
--- OUTSIDE RECORDS SUMMARY | 2024-11-05 19:17 | XMS_ITS | Encounter Summary ---
Author Organization [facility] Address [address] [place] [address] Phone Care Team Providers Care Service Employee Name Role Phone No, Physician Primary Care Provider [phone] Reason for Visit * Reason Onset Date Comments Scheduling Appointments 07/10/2024 Encounter Details Date Type Department Care Team (Late st Contact Info) Description 07/10/2024 Telephone [facility], Interventional Radiology [address] [place] [address] Bree Cifuentes Scheduling Appointments Social History Tobacco Use Types Packs/Day Years Used Date Smoking Tobacco: Former Cigarettes 1 11 1 969 - 1979 Passive Smoke Exposure: Never Smokeless Tobacco: Never Alcohol Use Standard Drinks/Week Comments Yes 14 (1 standard drink = 0.6 oz pu re alcohol) social AHC Utilities Answer Date Recorded In the past 12 months has [employer], oil, or water [employer] threatened to shut off services in your [...] often do you attend chur ch or restoration services? Never 12/27/2023 Do you belong to [...] to sleep or slept in a senior living (including now)? No 12/27/2023 Personal Safety Answer Date Recorded Have you ever been in or are you currently in a harmful physical or emotional relationship or is someone making you feel afraid or unsafe? 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 Thought she mistakenly canceled appt instead of confirming it during automatic phone call. documented in this encounter Plan of Treatment Not on file documented as of this encounter Visit Diagnoses Not on filedocumented in this encounter Care Teams Service Employee Relationship Specialty Start Date End Date No, Physician PCP - General 05/26/24 documented as of this encounter
--- OUTSIDE RECORDS SUMMARY | 2024-11-05 19:17 | XMS_ITS | Encounter Summary ---
Author Organization [facility] Address [address] [place] [address] Phone Care Team Providers Care Business Solutions Consultant Name Role Phone No, Physician Primary Care Provider [phone] Reason for Referral * Consultation (Routine) - Closed Specialty Diagnoses / Procedures Referred By Contact Referred To Contact Physical Medicine and Rehabilitation Diagnoses S/P laminectomy with spinal fusion Injury of thoracic spinal cord, subsequent encounter (HCC) Marcial Vu Jr., MD [address] [facility] [place] [address] Phone: tel:[phone] fax:[phone] [facility] (All Locations) Referral ID Status Reason Start Date Expiration Date V isits Requested Visits Authorized [id number] Closed Specialty Services Required 06/26/2024 07/26/2025 1 1 Question Answer Please select the performing region: [facility] (All Locations) [167] Which type of service does your patient need treatment for? Ortho-Neuro Rehabilitation What will your patient need to be treated for? Spinal Cord Injury # of visits: 1 Comments Evaluate and treat for thoracic SCI. Consider stimulator if appropriate -Pt s/p 10/23/2023: L4-L5 posterior spinal fusion with instrumentation, laminectomy, and TLIF for left L4 and L5 radiculopathy with weakness secondary to L4-L5 herniated nucleus pulposus, lumbar spondylosis, and lumbar spinal stenosis c/b cardiac arrest and PE -s/p T6-L4 decompression and evacuation of thoracic and lumbar epidural hematoma, and durotomy repair for incomplete SCI and cauda equina injury secondary to thoracic and lumbar epidural hematoma and durotomy. * Diagnostic Imaging (Routine) - Closed Specialty Diagnoses / Procedures Referred By Contac t Referred To Contact Diagnoses S/P laminectomy with spinal fusion Procedures XR Spine Thoracic 2 Views Marcial Vu Jr., MD [address] [facility] [address] [place] [address] Phone: tel: fax: [facility] [address] [place] [address] [address] [place] [address] Phone: tel: Referral ID Status Reason Start Date Expiration Date Visits Re quested Visits Authorized [id number] Closed 06/20/2024 07/20/2025 1 1 * Diagnostic Imaging (Routine) - Closed Specialty Diagnoses / Procedures Referred By Contac t Referred To Contact Diagnoses S/P laminectomy with spinal fusion Procedures XR Spine Lumbar 2 or 3 Views Marcial Vu Jr., MD [address] [facility] [address] [place] [address] Phone: tel: fax: [facility] [address] [place] [phone] Phone: tel: Referral ID Status Reason Start Date Expiration Date Visits Re quested Visits Authorized [id number] Closed 06/20/2024 07/20/2025 1 1 Reason for Visit * Reason Comments Return Patient Encounter Details Date Type Department Care Team (Late st Contact Info) Description 06/26/2024 10:00 AM CDT Office Visit [facility] Orthopaedic Surgery [address] [place] [address] Medical Office Building [address] [place] [id number] Marcial Vu Jr., MD [address] [facility] [address] [place] [address] Injury of thoracic spinal cord, subsequent encounter [facility] (Primary Dx); S/P laminectomy with spinal fusion Social History Tobacco Use Types Packs/Day Years Used Date Smoking Tobacco: Former Cigarettes 1 11 969 1979 Passive Smoke Exposure: Never Smokeless Tobacco: Never Alcohol Use Standard Drinks/Week Comments Yes 14 (1 standard drink = 0.6 oz pu re alcohol) social [place] Utilities Answer Date Recorded In the past 12 months has [employer], gas, oil, or water [employer] threatened to shut off services in your [...] often do you attend chur ch or scientology services? 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 Dr. Vu has recommended the following treatment: -Follow up in 3 months -Referral placed to neurorehab. You will be called to schedule this appointment Please let us know if you have any questions. Kasey Mari MA, ATC Mechanical Design Engineer Facilities to Dr. Marcial Vu Department of Orthopedic Spine Surgery Galina Franco RN, BSN Clinical Nurse Coordinator to Dr. Marcial Vu Department of Orthopedic Spine Surgery documented in this encounter Progress Notes * Marcial Vu Jr., MD - 06/26/2024 10:00 AM CDT Images from the original note were not included. Postoperative Patient Visit Interim History Follow up from Laminectomy Thoracic Decompression, Laminectomy Lumbar - Posterior, Spinal Cord Monitoring, and Repair Dural Tear on 11/08/2023 Mr. Evans follows up today accompanied by his , Val. He is living at [facility]. Both he and his are happy with the care that he has been receiving there. Hehad his IVC filter removed recently. He remains on Xarelto. He has been going to physical therapy 3times per week and also does exercise classes 3 times per week. He continues to have bilateral lower extremity swelling for which he has been wearing compression stockings. He also has had recurrent UTIs and remains on antibiotics for this. He has intact sensation throughout his lower extremities but has not regained any motor function. He and his are inquiring about the potential utility ofa spinal cord stimulator device for allowing him to regain lower extremity motor function. Physical Examination Focused examination demonstrates that he is sitting comfortably in a wheelchair. His thoracolumbar spine incision is well healed without concern for infection or wound complication. He has 5/5 strength and intact sensation to light touch throughout bilateral upper extremities. He is unable to demonstrate any motor function throughout bilateral lower extremities. He has intact sensation to light touch throughout bilateral lower extremities. PROMIS Scores 09/13/2023 10/08/2023 01/07/2024 02/07/2024 03/27/2024 06/26/2024 PROMIS Pain Interference 66.9 73.7 56 56 38.7 38.7 Physical Function V2.0 28.6 26.7 18.5 26.7 18.5 31.9 Anxiety V1.0 60.5 57.2 56.5 51.2 53.5 51.2 Depression 48.1 46.1 49.4 51.2 48.1 48.2 Review of Plain Radiographs/Studies My independent interpretation of the patient's imaging studies is as follows: Plain films AP and lateral of the thoracic and lumbar spine from today were reviewed by me. They demonstrate evidence of L4-L5 decompression and fusion and thoracic and lumbar laminectomies unchangedfrom prior. There is no evidence of implant related complication. Impression/Diagnosis 73-year-old male who is 8 months status post L4-L5 decompression and fusion complicated by cardiac arrest and bilateral pulmonary emboli immediately postoperatively requiring therapeutic anticoagulation who subsequently developed a thoracic and lumbar epidural hematoma two weeks postoperatively causing an incomplete spinal cord injury and cauda equina injury. We brought him back to the OR emergently for thoracic and lumbar laminectomies and hematoma evacuation and a durotomy was encountered andrepaired during this surgery. IVC filter was placed after this 2nd surgery and he was recently removed. He subsequently developed bilateral lower extremity DVTs and therapeutic anticoagulation was ini tiated 3 weeks after the 2nd surgery. He is now 7.5 months status post thoracolumbar decompression.He is now in an independent living facility. He is on Xarelto. Treatment Plan He will continue doing his physical therapy to work on maximizing his mobility and upper extremity strength. He will also continue doing compressive stockings for his lower extremity swelling. He will continue to follow with Urology for consideration of a suprapubic catheter. I provided a referral to Neuro Rehab per their request for consideration of a stimulator or other treatments which they have researched. I will see him back in 3 months for a clinical check and with repeat AP and lateral thoracic and lumbar spine x-rays. They will contact us in the interim if any issues arise. All of their questions were answered. They are happy with this plan. Marcial Vu Jr., MD Automatic Punch Press Operator Department of Orthopaedic Surgery Division of Spine Surgery [facility] [place], [place] Fiber Optics Supervisor done by [employer]; therefore, variances and inaccuracies may occur. I reviewed the patient problem list pertinent to the visit today, but the entire patient problem list was not reviewed today. Total time spent on this patient visit today was 30 minutes dedicated to chart review, independent imaging review, patient evaluation, examination, counseling and education, and coordination of care. documented in this encounter Plan of Treatment Scheduled Referrals Name Type Priority Associated Diagnoses Orde r Schedule Ambulatory referral to Physical Medicine Rehab Outpatient Referral Routine S/P laminectomy with spinal fusion Injury of thoracic spinal cord, subsequent encounter (HCC) Expected: 06/27/2024 (Approximate), Expires: 06/26/2025 documented as of this encounter Results * XR Spine Thoracic 2 Views (06/26/2024 10:03 AM CDT) Anatomical Region Laterality Modality Spine N/A Computed Radiogr aphy 06/26/2024 10:0 5 AM CDT Impressions 06/26/2024 10:05 AM CDT 1. ??Mild multilevel thoracic and lumbar degenerative disease. Electronically signed by: Luis St MD Narrative 06/26/2024 10:05 AM CDT EXAMINATION: XR SPINE THORACIC 2 VIEWS, XR SPINE LUMBAR 2 OR 3 VIEWS HISTORY: ??Back pain. FINDINGS: 2 views of the thoracic and 2 views of the lumbar spine are reviewed with comparison to 03/27/2024. Thoracic spine: There is exaggerated upper thoracic kyphosis. ??Mild multilevel thoracic degenerative disease. ??Vertebral body heights are preserved. Sagittal alignment is normal. Lumbar spine: Unchanged combined anterior and posterior instrumented fusion at L4-L5. ??Hardware is intact. ??Mild multilevel degenerative disease at the unfused segments. ??Vertebral body heights preserved. ??Diffuse idiopathic skeletal hyperostosis. Procedure Note Luis St MD - 06/26/2024 EXAMINATION: XR SPINE THORACIC 2 VIEWS, XR SPINE LUMBAR 2 OR 3 VIEWS HISTORY: Back pain. FINDINGS: 2 views of the thoracic and 2 views of the lumbar spine are reviewed with comparison to 03/27/2024. Thoracic spine: There is exaggerated upper thoracic kyphosis. Mild multilevel thoracic degenerative disease. Vertebral body heights are preserved. Sagittal alignment is normal. Lumbar spine: Unchanged combined anterior and posterior instrumented fusion at L4-L5. Hardware is intact. Mild multilevel degenerative disease at the unfused segments. Vertebral body heights preserved. Diffuse idiopathic skeletal hyperostosis. IMPRESSION: 1. Mild multilevel thoracic and lumbar degenerative disease. Electronically signed by: Luis St MD Marcial Vu Jr., MD IM XR PROCEDURES F inal Result * XR Spine Lumbar 2 or 3 Views (06/26/2024 10:03 AM CDT) Anatomical Region Laterality Modality Spine N/A Computed Radiogr aphy 06/26/2024 10:0 5 AM CDT Impressions 06/26/2024 10:05 AM CDT 1. ??Mild multilevel thoracic and lumbar degenerative disease. Electronically signed by: Luis St MD Narrative 06/26/2024 10:05 AM CDT EXAMINATION: XR SPINE THORACIC 2 VIEWS, XR SPINE LUMBAR 2 OR 3 VIEWS HISTORY: ??Back pain. FINDINGS: 2 views of the thoracic and 2 views of the lumbar spine are reviewed with comparison to 03/27/2024. Thoracic spine: There is exaggerated upper thoracic kyphosis. ??Mild multilevel thoracic degenerative disease. ??Vertebral body heights are preserved. Sagittal alignment is normal. Lumbar spine: Unchanged combined anterior and posterior instrumented fusion at L4-L5. ??Hardware is intact. ??Mild multilevel degenerative disease at the unfused segments. ??Vertebral body heights preserved. ??Diffuse idiopathic skeletal hyperostosis. Procedure Note Luis St MD - 06/26/2024 EXAMINATION: XR SPINE THORACIC 2 VIEWS, XR SPINE LUMBAR 2 OR 3 VIEWS HISTORY: Back pain. FINDINGS: 2 views of the thoracic and 2 views of the lumbar spine are reviewed with comparison to 03/27/2024. Thoracic spine: There is exaggerated upper thoracic kyphosis. Mild multilevel thoracic degenerative disease. Vertebral body heights are preserved. Sagittal alignment is normal. Lumbar spine: Unchanged combined anterior and posterior instrumented fusion at L4-L5. Hardware is intact. Mild multilevel degenerative disease at the unfused segments. Vertebral body heights preserved. Diffuse idiopathic skeletal hyperostosis. IMPRESSION: 1. Mild multilevel thoracic and lumbar degenerative disease. Electronically signed by: Luis St MD Marcial Vu Jr., MD [facility] XR PROCEDURES F inal Result documented in this encounter Visit Diagnoses Diagnosis Injury of thoracic spinal cord, subsequent encounter (HCC)- Primary S/P laminectomy with spinal fusion Arthrodesis status S/P laminectomy with spinal fusion Arthrodesis status documented in this encounter Care Teams Business Solutions Consultant Relationship Specialty Start Date End Date No, Physician PCP - General 05/26/24 documented as of this encounter
--- OUTSIDE RECORDS SUMMARY | 2024-11-05 19:17 | XMS_ITS | Encounter Summary ---
Author Organization [facility] Address [address] [place] [address] Care Team Providers Care Civil Rights Investigator Name Role Phone No, Physician Primary Care Provider [phone] Reason for Referral * Diagnostic Imaging (Routine) - Closed Specialty Diagnoses / Procedures Referred By Charlesac t Referred To Contact Diagnoses Nephrolithiasis Procedures US Kidney Complete Temo Mcintosh MD [address] [facility] [place] [address] Phone: tel: fax: [address] [phone] Referral ID Status Reason Start Date Expiration Date Visits Re quested Visits Authorized [id number] Closed 06/06/2024 07/06/2025 1 1 Reason for Visit * Diagnostic Imaging (Routine) - Closed Specialty Diagnoses / Procedures Referred By Contac t Referred To Contact Diagnoses Nephrolithiasis Procedures US Kidney Complete Temo Mcintosh MD [address] [facility] [place] [address] Phone: tel: fax: [address] [phone] Referral ID Status Reason Start Date Expiration Date Visits Re quested Visits Authorized [id number] Closed 06/06/2024 07/06/2025 1 1 Encounter Details Date Type Department Care Team (Latest Contact Info) Description 06/23/2024 9:39 AM CDT - 06/23/2024 11:59 PM CDT Hospital Encounter [facility] Imaging [address] [address] Nephrolithiasis Discharge Disposition: Discharge to home or self care Social History Tobacco Use Types Packs/Day Years Used Date Smoking Tobacco: Former Cigarettes 1 11 969 - 1979 Passive Smoke Exposure: Never Smokeless Tobacco: Never Alcohol Use Standard Drinks/Week Comments Yes 14 (1 standard drink = 0.6 oz pu re alcohol) social [facility] Utilities Answer Date Recorded In the past 12 months has [employer] electric, gas, oil, or water company threatened [...] often do you attend chur ch or episcopalian services? Never 12/27/2023 Do you belong to any clubs o r organizations such as hindu groups, unions, fraternal or athletic groups, or [...] place to sleep or slept in a correction (including now)? No 12/27/2023 Personal Safety Answer Date Recorded Have you ever been in or are you currently in a harmful physical or emotional relationship or is someone making you feel afraid or unsafe? 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 No hydronephrosis. Pt notified. He denies any flank pain. He is agreeable to follow up as needed. Temo Mcintosh MD documented in this encounter Plan of Treatment Not on file documented as of this encounter Procedures Procedure Name Priority Date/Time Associated Diagnosis Comments US KIDNEY COMPLETE Schedule Routine, Read Routine (OP Routine) 06/23/2024 10:30 AM CDT Nephrolithiasis documented in this encounter Results * US Kidney Complete (06/23/2024 10:30 AM CDT) Anatomical Region Laterality Modality Kidney N/A Ultrasound 06/23/2024 11:0 6 AM CDT Impressions 06/23/2024 11:45 AM CDT 1. ??Normal sized kidneys. No hydronephrosis. 2. ??Nonobstructing 5 mm stone in the upper pole of the right kidney. Dictated by: Marcial Regalado M.D. The radiology attending physician has personally reviewed this study, and had reviewed and/or edited this written report and agrees with it. Electronically signed by: Carlos Manuel Mishra M.D. Narrative 06/23/2024 11:45 AM CDT EXAMINATION: COMPLETE RENAL SONOGRAM HISTORY: ??74-year-old male with history of left-sided hydronephrosis, now status post stent removal. COMPARISON: ??CT dated 12/25/2023 FINDINGS: ?? Kidneys: The echogenicity of both kidneys is normal. The kidneys are normal in size. ??The right kidney measures 9.8 cm in length, and the left, 11 cm in length. There is no hydronephrosis in either kidney. There is a tiny stone with shadowing and twinkle artifact in the right upper pole of the kidney, measuring up to 5 mm. ??Appears to correlate with small nonobstructing stone seen on last CT. Bladder: Partially visualized decompressed bladder with Harris catheter in place. Procedure Note Carlos Manuel Mishra MD - 06/23/2024 EXAMINATION: COMPLETE RENAL SONOGRAM HISTORY: 74-year-old male with history of left-sided hydronephrosis, now status post stent removal. COMPARISON: CT dated 12/25/2023 FINDINGS: Kidneys: The echogenicity of both kidneys is normal. The kidneys are normal in size. The right kidney measures 9.8 cm in length, and the left, 11 cm in length. There is no hydronephrosis in either kidney. There is a tiny stone with shadowing and twinkle artifact in the right upper pole of the kidney, measuring up to 5 mm. Appears to correlate with small nonobstructing stone seen on last CT. Bladder: Partially visualized decompressed bladder with Harris catheter in place. IMPRESSION: 1. Normal sized kidneys. No hydronephrosis. 2. Nonobstructing 5 mm stone in the upper pole of the right kidney. Dictated by: Marcial Regalado M.D. The radiology attending physician has personally reviewed this study, and had reviewed and/or edited this written report and agrees with it. Electronically signed by: Carlos Manuel Mishra M.D. us Temo Mcintosh MD [facility] US PROCEDURES Final Result documented in this encounter Visit Diagnoses Diagnosis Nephrolithiasis Calculus of kidney documented in this encounter Care Teams Civil Rights Investigator Relationship Specialty Start Date End Date No, Physician PCP - General 05/26/24 documented as of this encounter
--- OUTSIDE RECORDS SUMMARY | 2024-11-05 19:17 | XMS_ITS | Encounter Summary ---
Author Organization [facility] Healthcare Address [address] [place] [address] Care Team Providers Care Racker Octave Board Name Role Phone No, Physician Primary Care Provider [phone] Encounter Details Date Type Department Care Team (Late st Contact Info) Description 06/19/2024 8:15 AM CDT Lab [facility] Advanced [facility] ([facility]) [address] [place] [phone] Presence of IVC filter Social History Tobacco Use Types Packs/Day Years Used Date Smoking Tobacco: Former Cigarettes 1 11 1 969 - 1979 Passive Smoke Exposure: Never Smokeless Tobacco: Never Alcohol Use Standard Drinks/Week Comments Yes 14 (1 standard drink = 0.6 oz pu re alcohol) social C Utilities Answer Date Recorded In the past 12 months has [employer], gas, oil, or water company threatened to [...] any clubs o r organizations such as spiritism groups, unions, fraternal or athletic groups, or [...] place to sleep or slept in a jail (including now)? No 12/27/2023 Personal Safety Answer Date Recorded Have you ever been in or are you currently in a harmful physical or emotional relationship or is someone making you feel afraid or unsafe? 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 Not on file Not on file documented as of this encounter Plan of Treatment Not on file documented as of this encounter Procedures Procedure Name Priority Date/Time Associated Diagnosis Comments EGFR Routine 06/19/2024 8:07 AM CDT Presence of IVC filter DIFFERENTIAL AUTO Routine 06/19/2024 8:0 7 AM CDT Presence of IVC filter CBC WITH AUTO DIFFERENTIAL Routine 06/19/2024 8:07 AM CDT Presence of IVC filter COMPREHENSIVE METABOLIC PANEL Routine 06/19/2024 8:07 AM CDT Presence of IVC filter documented in this encounter Results * eGFR (06/19/2024 8:07 AM CDT) eGFR [...] 8:07 AM CDT 06/19/2024 8:40 AM CDT Milan Crum MD LAB BLOOD ORDERABLES Final Result [facility] [place] [address] * (ABNORMAL) Differential, auto (06/19/2024 8:07 AM CDT) Neutrophil abs 3.0 1.5 - 6.5 K/cumm Imm gran abs 0.0 0.0 - 0.1 K/cumm [facility] Lymphocyte abs 1.7 0.8 - 3.3 K/cumm [facility] Monocyte abs 0.5 0.2 - 0.8 K/cumm [facility] Eosinophil abs 0.6(H) 0.0 - 0.5 K/cumm [facility] Basophil abs 0.0 0.0 - 0.1 K/cumm [facility] Neutrophil pct 52.1 % [facility] Comment: Interpretive Data Percent cell count reference ranges are not reported, since discordance with absolute values may lead to misinterpretation of CBC data. Current Interpretive Data was last revised on 2018. Imm gran pct 0.3 % [facility] Comment: Interpretive Data Percent cell count reference ranges are not reported, since discordance with absolute values may lead to misinterpretation of CBC data. Current Interpretive Data was last revised on 2018. Lymphocyte pct 29.0 % [facility] Comment: Interpretive Data Percent cell count reference ranges are not reported, since discordance with absolute values may lead to misinterpretation of CBC data. Current Interpretive Data was last revised on 2018. Monocyte pct 8.2 % [facility] Comment: Interpretive Data Percent cell count reference ranges are not reported, since discordance with absolute values may lead to misinterpretation of CBC data. Current Interpretive Data was last revised on 2018. Eosinophil pct 9.7 % [facility] Comment: Interpretive Data Percent cell count reference ranges are not reported, since discordance with absolute values may lead to misinterpretation of CBC data. Current Interpretive Data was last revised on 2018. Basophil pct 0.7 % [facility] Comment: Interpretive Data Percent cell count reference ranges are not reported, since discordance with absolute values may lead to misinterpretation of CBC data. Current Interpretive Data was last revised on 2018. Blood 06/19/2024 8:07 AM CDT 06/19/2024 8:36 AM CDT us Milan Crum MD LAB BLOOD ORDERABLES Final Result [facility] [place] [address] * (ABNORMAL) CBC with auto differential (06/19/2024 8:07 AM CDT) WBC 5.8 3.8 - 9.9 K/cumm Hgb 11.3(L) 13.0 - 17.5 g/dL [facility] Hct 34.4(L) 38.9 - 50.3 % [facility] Plt 198 150 - 400 K/cumm [facility] MPV 11.0 9.1 - 12.3 fL [facility] RBC 3.50(L) 4.30 - 5.80 M/cumm [facility] MCV 98.3(H) 81.3 - 96.4 fL [facility] MCH 32.3 27.1 - 33.3 pg [facility] MCHC 32.8 32.3 - 35.7 g/dL [facility] RDW CV 14.8 11.1 - 14.9 % [facility] RDW SD 53.8(H) 35.7 - 48.1 fL [facility] NRBC abs 0.00 0.00 - 0.01 K/cumm [facility] Blood 06/19/2024 8:07 AM CDT 06/19/2024 8:36 AM CDT us Milan Crum MD LAB BLOOD ORDERABLES Final Result [facility] [place] [address] * (ABNORMAL) Comprehensive metabolic panel (06/19/2024 8:07 AM CDT) Sodium 143 135 - 145 mmol/L Potassium, pl 3.9 3.3 - 4.9 mmol/L [facility] Chloride 105 97 - 110 mmol/L [facility] CO2 32 22 - 32 mmol/L [facility] Anion gap 6 2 - 15 mmol/L [facility] BUN 18 6 - 25 mg/dL [facility] Creatinine 0.72(L) 0.80 - 1.30 mg/dL [facility] Glucose 103 70 - 199 mg/dL [facility] Comment: Interpretive Data Fasting glucose >/= 126 mg/dl is diagnostic for diabetes. ?? Fasting is defined as no caloric intake [...] Current interpretive data was last revised 2022. Calcium 9.7 8.5 - 10.3 mg/dL [facility] Bilirubin, total 0.7 0.1 - 1.2 mg/dL [facility] Protein, pl 7.8 6.5 - 8.5 g/dL [facility] Albumin 3.9 3.5 - 5.0 g/dL [facility] Alk phos 96 40 - 130 Units/L [facility] ALT 16 7 - 55 Units/L [facility] AST 26 10 - 50 Units/L [facility] Blood 06/19/2024 8:07 AM CDT 06/19/2024 8:36 AM CDT Milan Crum MD LAB BLOOD ORDERABLES Final Result [facility] Department [place] [address] documented in this encounter Visit Diagnoses Diagnosis Presence of IVC filter documented in this encounter Care Teams Racker Octave Board Relationship Specialty Start Date End Date No, Physician PCP - General 05/26/24 documented as of this encounter
--- OUTSIDE RECORDS SUMMARY | 2024-11-05 19:17 | XMS_ITS | Encounter Summary ---
Author Organization [facility] Address [address] [place] [address] Phone Care Team Providers Care Boot And Shoe Repairman Name Role Phone No, Physician Primary Care Provider [phone] Encounter Details Date Type Department Care Team (Late st Contact Info) Description 06/12/[address] [facility] Epilepsy [address] [facility] [address] [facility] [address] [place] [address] [place] [address] Jose Elias Osorio MD PhD [address] [place] [address] Social History Tobacco Use Types Packs/Day Years Used Date Smoking Tobacco: Former Cigarettes 1 11 969 - 1979 Passive Smoke Exposure: Never Smokeless Tobacco: Never Alcohol Use Standard Drinks/Week Comments Yes 14 (1 standard drink = 0.6 oz pu re alcohol) social [facility] Utilities Answer Date Recorded In the past 12 months has [employer], gas, oil, or water [employer] threatened to shut off services in your [...] How often do you attend chur or mu-ism services? 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 Left voicemail to provide update. She said that since tapering of LEV he has not had any issues and he has no issues at this time. [phone] documented in this encounter Plan of Treatment Not on file documented as of this encounter Visit Diagnoses Not on filedocumented in this encounter Care Teams Boot And Shoe Repairman Relationship Specialty Start Date End Date No, Physician PCP - General 05/26/24 documented as of this encounter
--- OUTSIDE RECORDS SUMMARY | 2024-11-05 19:17 | XMS_ITS | Encounter Summary ---
Author Organization [facility] Address [address] [place] [address] Phone Care Team Providers Care Insurance Premium Auditor Name Role Phone No, Physician Primary Care Provider [phone] Reason for Visit * Reason Onset Date Comments Appointment 07/15/2024 Encounter Details Date Type Department Care Team (Late st Contact Info) Description 07/15/2024 Telephone [facility] Orthopaedic Surgery [address] [facility] [address] [place] [address] [place] [phone] Marcial Vu Jr., MD [address] [facility] [address] [place] [address] Appointment Social History Tobacco Use Types Packs/Day Years Used Date Smoking Tobacco: Former Cigarettes 1 09 05 969 - 1979 Passive Smoke Exposure: Never Smokeless Tobacco: Never Alcohol Use Standard Drinks/Week Comments Yes 14 (1 standard drink = 0.6 oz pu re alcohol) social [facility] Utilities Answer Date Recorded In the past 12 months has [employer], gas, oil, or water [employer] threatened to shut off services in your [...] often do you attend chur ch or temple services? 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 Left VM For Glenna in neurorehab checking status of referral- if MD reviewed referral yet. Informed pt that I will continue to follow up and check the status of this ref/ appointment. Will update pt when I hear something and requested pt to do the same. Pt in agreement with plan. * Telephone Encounter - Galina Franco RN - 07/22/2024 4:07 PM CDT Pt not yet been contacted for scheduling. Left for Glenna, supervisor drilling and shooting with neurorehab, requesting an update on the referral. Provided pt information and his contact info along with my direct number if needed for additional questions or concerns. * Telephone Encounter - Galina Franco RN - 07/15/2024 1:38 PM CDT Pt not yet been contacted to schedule appt with neurorehab. Spoke with Linda in neurorehab who stated she sent referral to Dr. Cantor for review. Once Linda hears back from Dr. Cantor, she will contact pt for scheduling. Pt and his , Val, updated on status of referral. Requested pt contact me again if he has not heard from neurorehab within the next week. documented in this encounter Plan of Treatment Not on file documented as of this encounter Visit Diagnoses Not on filedocumented in this encounter Care Teams Insurance Premium Auditor Relationship Specialty Start Date End Date No, Physician PCP - General 05/26/24 documented as of this encounter
--- OUTSIDE RECORDS SUMMARY | 2024-11-05 19:17 | XMS_ITS | Encounter Summary ---
Author Organization [facility] Healthcare Address [address] [place] [address] Care Team Providers Care [place] Marshal Name Role Phone No, Physician Primary Care Provider [phone] Reason for Referral * Diagnostic Imaging (Routine) - Closed Specialty Diagnoses / Procedures Referred By Contac t Referred To Contact Radiology Diagnoses Lower extremity edema S/P insertion of IVC (inferior vena caval) filter History of pulmonary embolism Procedures IR Remove Vena Cava Filter IR Remove Vena Cava Filter IR Remove Vena Cava Filter Marcial Vu Jr., MD [address] [place] [address] Phone: tel: fax: [address] [phone] Referral ID Status Reason Start Date Expiration Date Visits Re quested Visits Authorized [id number] Closed 04/08/2024 05/08/2025 1 1 Reason for Visit * Diagnostic Imaging (Routine) - Closed Specialty Diagnoses / Procedures Referred By Contac t Referred To Contact Radiology Diagnoses Lower extremity edema S/P insertion of IVC (inferior vena caval) filter History of pulmonary embolism Procedures IR Remove Vena Cava Filter IR Remove Vena Cava Filter IR Remove Vena Cava Filter Marcial Vu Jr., MD [address] [place] [address] Phone: tel: fax: [facility] [address] [facility] [place] [address] Referral ID Status Reason Start Date Expiration Date Visits Re quested Visits Authorized [id number] Closed 04/08/2024 05/08/2025 1 1 Encounter Details Date Type Department Care Team (Late st Contact Info) Description 06/19/2024 8:13 AM CDT - 06/19/2024 11:59 PM CDT Hospital Encounter [facility] Radiology [facility] [address] [facility] [place] [address] Marcial Vu Jr., MD [address] [facility] [address] [place] [address] Milan Crum MD [address] [facility] [address] [place] [address] Lower extremity edema; S/P insertion of IVC (inferior vena caval) filter; History of pulmonary embolism Discharge Disposition: Discharge to home or self care Social History Tobacco Use Types Packs/Day Years Used Date Smoking Tobacco: Former Cigarettes 1 11 1 969 - 1979 Passive Smoke Exposure: Never Smokeless Tobacco: Never Alcohol Use Standard Drinks/Week Comments Yes 14 (1 standard drink = 0.6 oz pu re alcohol) social [facility] Utilities Answer Date Recorded In the past 12 months has [employer], gas, oil, or water [employer] 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 Not on file Not on file documented as of this encounter Last Filed Vital Signs Vital Sign Reading Time Taken Comments Blood Pressure 127/82 06/19/2024 12:22 PM CDT Pulse 69 06/19/2024 12:22 PM CDT Temperature 36 ??C (96.8 ??F) 06/19/2024 12:22 PM CDT Respiratory Rate 16 06/19/2024 12:22 PM CDT Oxygen Saturation 100% 06/19/2024 12:22 PM CDT Inhaled Oxygen Concentration - - Weight - - Height - - Body Mass Index - - documented in this encounter Discharge Instructions * Discharge Instructions* Darrian Gonzalez MD - 06/19/2024 12:22 PM CDT Interventional Radiology Outpatient Discharge Instructions/Note Diagnosis: History of deep vein thrombosis, now on anticoagulation Procedure: IVC Filter removal Limitations: [x] No lifting greater than 5 pounds for 3 days. [x] You received medication that may [...] Site Care: [] teaching sheet given [x] Skin glue was used to close your incision. See teaching sheet. [x] Keep site clean and dry. [x] You may bathe or shower tomorrow. [] [...] draining. To contact an Interventional Radiologist at [facility] call [phone] Sunday through Sunday from 7:30am-4:30pm. At all other times call [phone] and ask that the Interventional Radiologist be paged. To contact an Interventional Radiologist at [facility] call [phone] Sunday through Sunday from 7:30am-3:30pm. Special instructions: Please call Interventional Radiology for any procedure related questions or problems including: Extreme swelling or bruising at the site. Unusual drainage or bleeding from procedure site. Fever of 101.5 F for more than 24 hours. Severe procedure related pain. Follow up care: [x] Return to Interventional Radiology. We will contact you with an appointment date/time. Please come to: [] 3rd Floor [facility] [] 4th floor [facility] [] [facility] [] [facility] Please call [phone] to schedule a follow up appointment. You need to return in documented in this encounter Medications at Time [...] ound healing Take 1 tablet by mouth diamond sander before breakfast ondansetron ODT (ZOFRAN-ODT) 4 mg [...] 1 tablet (20 mEq total) by mouth diamond sander before breakfast 4 senna-docusate (PERICOLACE) 8.6-50 mg [...] encounter Miscellaneous Notes * Pre-Procedure Note - Darrian Gonzalez MD - 06/19/2024 10:00 AM CDT Radiology Short Sedation Form Indication: History of DVT, now tolerating anticoagulation Planned Procedure: IVC venogram, Possible IVC filter removal Planned Sedation/Anesthesia: minimal sedation Adjunctive Procedures: NONE History of Sedation/Anesthesia Complications: No See progress note 04/11/2024 and 06/02/2024 for details of history, review of systems, physical exam, labs, imaging data and assessment. Changes in patient condition since prior assessment: none Most Recent Vitals: There were no vitals filed for this visit. Airway assessment: normal ASA Score: ASA 3 - Patient with moderate systemic disease with functional limitations NPO time: after midnight Benefits, risks and alternatives of procedure and planned sedation have been discussed with the patient and/or their logistics service representative. All questions answered and they agree to proceed. * Post-Procedure Note - Darrian Gonzalez MD - 06/19/2024 9:00 AM CDT Radiology Brief Post Procedure Note Attending: Radames CARD Landscape Drafter: Carlos CARD Sedation/Anesthesia: Min Sedation Pre-Op/Pre-Procedure Diagnosis: History of DVT, now on anticoagulation Post-Op/Post-Procedure Diagnosis: Same Procedure Performed: IVC filter removal Procedure Findings: Right IJ access. Filter removed in its entirety without incident. Complications: None Estimated Blood Loss: None Specimens: None Condition: Stable Full report to follow. documented in this encounter Plan of Treatment Not on file documented as of this encounter Procedures Procedure Name Priority Date/Time Associated Diagnosis Comments REMOVE VENA CAVA FILTER Schedule Routine, Read Routine (OP Routine) 06/19/2024 12:22 PM CDT Lower extremity edema S/P insertion of IVC (inferior vena caval) filter History of pulmonary embolism documented in this encounter Results * IR Remove Vena Cava Filter (06/19/2024 12:22 PM CDT) Anatomical Region Laterality Modality Body N/A Ultrasound 06/19/2024 2:00 PM CDT Impressions 06/19/2024 2:44 PM CDT Successful retrieval of filter from the inferior vena cava. PLAN: Patient may resume home Xarelto. Patient obtained a new contrast enhanced CT abdomen and pelvis and will follow-up with interventional radiology for further discussion of lower extremity venous anatomy and swelling. Dictated by: Darrian Gonzalez M.D. The radiology attending physician has personally reviewed this study, and had reviewed and/or edited this written report and agrees with it. Electronically signed by: Milan Crum M.D. Narrative 06/19/2024 2:44 PM CDT EXAMINATION: ??INFERIOR VENA CAVAGRAM AND INFERIOR VENA CAVAL FILTER RETRIEVAL HISTORY/INDICATION: ??74-year-old male with history of deep vein thrombosis and pulmonary embolism, with previous epidural hematoma at which time anticoagulation was contraindicated. Patient is now Xarelto and presents to interventional radiology for inferior vena cava filter removal. Prior CT on 11/30/2023 demonstrates findings concerning for inferior vena cava and iliac vein thrombus, however lower extremity Doppler sonogram 04/11/2024 was negative for any DVT. Of note, patient has marked lower extremity swelling bilaterally. ATTENDING PRESENCE: Milan Crum MD, the attending radiologist was present from the beginning to the end of the procedure. ?? SEDATION: Procedural sedation was administered under the attending physician's direction and continuous monitoring by a trained nurse specialist who was independent from those actually performing the procedure. ??Total monitored sedation time was: 64 minutes. TECHNIQUE: ??The risks, benefits and alternatives were discussed and informed consent was obtained. Prior to beginning the procedure, Reserve Protocol was performed to confirm the patient's identity and the planned procedure. ??The fluoroscopy time has been recorded in the electronic medical record. Maximum sterile barriers including cap, mask, hand hygiene, sterile gloves, sterile gown, large sterile drape and 2% chlorhexidine for cutaneous antisepsis were used. Prior to the procedure, the central veins were evaluated by ultrasound. The recorded image shows a patent vessel. The right ??neck was sterilely prepped, draped and infiltrated with 1% lidocaine. The right ??internal jugular vein was then accessed using real-time ultrasound guidance and a guidewire passed centrally. A bath attendant fluoroscopic image was obtained. A 6 Sudanese vascular sheath was inserted into the right internal jugular vein. A 0.035 Glidewire, straight tip Merit Impress flush catheter, and an MPA catheter were directed into the right and left iliac veins. DSA images were obtained. The catheter was then exchanged for the filter retrieval sheath over an Amplatz guidewire. A snare was used to engage the top hook of the filter. The sheath was then advanced over the filter to close it down and retract the legs from the wall of the IVC. The filter was then removed through the sheath. A completion venogram was obtained. At the end of the procedure, the sheath was removed and pressure held until hemostasis was achieved. ESTIMATED BLOOD LOSS: Minimal. CONDITION: Stable DISCHARGED TO: ?? home. FINDINGS: Initial IVCgram shows the filter in the infrarenal IVC. There is no intraluminal thrombus. The bilateral common iliac veins are small in caliber without evidence of focal stenosis. Venogram done after retrieval of the filter shows mild vasospasm without extravasation or other wall abnormality. Procedure Note Milan Crum MD - 06/19/2024 EXAMINATION: INFERIOR VENA CAVAGRAM AND INFERIOR VENA CAVAL FILTER RETRIEVAL HISTORY/INDICATION: 74-year-old male with history of deep vein thrombosis and pulmonary embolism, with previous epidural hematoma at which time anticoagulation was contraindicated. Patient is now Xarelto and presents to interventional radiology for inferior vena cava filter removal. Prior CT on 11/30/2023 demonstrates findings concerning for inferior vena cava and iliac vein thrombus, however lower extremity Doppler sonogram 04/11/2024 was negative for any DVT. Of note, patient has marked lower extremity swelling bilaterally. ATTENDING PRESENCE: Milan Crum MD, the attending radiologist was present from the beginning to the end of the procedure. SEDATION: Procedural sedation was administered under the attending physician's direction and continuous monitoring by a trained nurse specialist who was independent from those actually performing the procedure. Total monitored sedation time was: 64 minutes. TECHNIQUE: The risks, benefits and alternatives were discussed and informed consent was obtained. Prior to beginning the procedure, Reserve Protocol was performed to confirm the patient's identity and the planned procedure. The fluoroscopy time has been recorded in the electronic medical record. Maximum sterile barriers including cap, mask, hand hygiene, sterile gloves, sterile gown, large sterile drape and 2% chlorhexidine for cutaneous antisepsis were used. Prior to the procedure, the central veins were evaluated by ultrasound. The recorded image shows a patent vessel. The right neck was sterilely prepped, draped and infiltrated with 1% lidocaine. The right internal jugular vein was then accessed using real-time ultrasound guidance and a guidewire passed centrally. A bath attendant fluoroscopic image was obtained. A 6 Sudanese vascular sheath was inserted into the right internal jugular vein. A 0.035 Glidewire, straight tip Merit Impress flush catheter, and an MPA catheter were directed into the right and left iliac veins. DSA images were obtained. The catheter was then exchanged for the filter retrieval sheath over an Amplatz guidewire. A snare was used to engage the top hook of the filter. The sheath was then advanced over the filter to close it down and retract the legs from the wall of the IVC. The filter was then removed through the sheath. A completion venogram was obtained. At the end of the procedure, the sheath was removed and pressure held until hemostasis was achieved. ESTIMATED BLOOD LOSS: Minimal. CONDITION: Stable DISCHARGED TO: home. FINDINGS: Initial IVCgram shows the filter in the infrarenal IVC. There is no intraluminal thrombus. The bilateral common iliac veins are small in caliber without evidence of focal stenosis. Venogram done after retrieval of the filter shows mild vasospasm without extravasation or other wall abnormality. IMPRESSION: Successful retrieval of filter from the inferior vena cava. PLAN: Patient may resume home Xarelto. Patient obtained a new contrast enhanced CT abdomen and pelvis and will follow-up with interventional radiology for further discussion of lower extremity venous anatomy and swelling. Dictated by: Darrian Gonzalez M.D. The radiology attending physician has personally reviewed this study, and had reviewed and/or edited this written report and agrees with it. Electronically signed by: Milan Crum M.D. Marcial Vu Jr., MD IMG IR PROCEDURES F inal Result documented in this encounter Visit Diagnoses Diagnosis Lower extremity edema Edema S/P insertion of IVC (inferior vena caval) filter Other postprocedural status History of pulmonary embolism Personal history of venous thrombosis and embolism documented in this encounter Administered Medications Inactive Administered Medications - up to 3 most recent administrations Medication Order MAR Action Action Date Dose Rate Site fentaNYL (SUBLIMAZE) preservative free injection intravenous, As needed, Starting on Helene 06/19/24 at 1115, Intra-Op Given 06/19/2024 11:55 AM CDT 50 mcg Given 06/19/2024 11:45 AM CDT 50 mcg Given 06/19/2024 11:25 AM CDT 50 mcg heparin 1,000 unit/mL injection As needed, Starting on Helene 06/19/24 at 1147, Intra-Op Given 06/19/2024 11:47 AM CDT 3,000 Units lidocaine (PF) (XYLOCAINE) 10 mg/mL (1 %) preservative free injection As needed, Starting on Helene 06/19/24 at 1128, Intra-Procedure (IR), Indications: Administration of Local AnesthesiaIndications:Administration of Local Anesthesia Given 06/19/2024 11:53 AM CDT 4 mL Neck Given 06/19/2024 11:28 AM CDT 6 mL N jovanna midazolam (VERSED) 1 mg/mL injection As needed, Starting on Helene 06/19/24 at 1115, Intra-Op Given 06/19/2024 11:55 AM CDT 1 mg Given 06/19/2024 11:45 AM CDT 1 mg Given 06/19/2024 11:25 AM CDT 1 mg sodium chloride 0.9% infusion 30 mL/hr, intravenous, Continuous, Starting on Helene 06/19/24 at 0915, Pre-Procedure (IR) New Bag 06/19/2024 8:48 AM CDT 30 mL/hr 30 mL/hr documented in this encounter Orders Medications Ordered That Armando ht Not Have Been Administered Count Last Ordered Date First Ordered Date Carrier Fluids for Secondary Infusion - 0.9% Sodium Chloride 1 06/19/2024 heparin 100 unit/mL injection 500 Units 1 0 06/19/2024 sodium chloride 0.9% flush 0.5-20 mL 2 06/05 sodium chloride 0.9% flush 10 mL 1 06/19/20 sodium chloride 0.9% flush 10-20 mL 1 06/19 sodium chloride 0.9% flush 5-10 mL 1 2023 Discharge Count Last Ordered Date First Orde red Date DISCHARGE PATIENT 1 06/19/2024 documented in this encounter Care Teams [place] Marshal Relationship Specialty Start Date End Date No, Physician PCP - General 05/26/24 documented as of this encounter
--- OUTSIDE RECORDS SUMMARY | 2024-11-05 19:17 | XMS_ITS | Encounter Summary ---
Author Organization [facility] Healthcare Address [address] [place] [address] Care Team Providers Care Air Quality Consultant Name Role Phone No, Physician Primary Care Provider Reason for Visit * Reason Onset Date Comments Appointment 06/20/2024 Encounter Details Date Type Department Care Team (Late st Contact Info) Description 06/20/2024 Telephone Radiology [address] [place] [phone] Macy Fernando, RN Appointment Social History Tobacco Use Types Packs/Day Years Used Date Smoking Tobacco: Former Cigarettes 1 11 9 1979 Passive Smoke Exposure: Never Smokeless Tobacco: Never Alcohol Use Standard Drinks/Week Comments Yes 14 (1 standard drink = 0.6 oz pu re alcohol) social [facility] Utilities Answer Date Recorded In the past 12 months has [employer], gas, oil, or water [employer] threatened to shut off services in your [...] often do you attend chur ch or voodoo services? 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 Crum, patient to have a CT ABD/Pelvis with contrast followed by a clinic visit with him to discuss bilateral leg edema. Appointment request sent to clinic to assist with scheduling. documented in this encounter Plan of Treatment Not on file documented as of this encounter Visit Diagnoses Not on filedocumented in this encounter Care Teams Air Quality Consultant Relationship Specialty Start Date End Date No, Physician PCP - General 05/26/24 documented as of this encounter
--- OUTSIDE RECORDS SUMMARY | 2024-11-05 19:17 | XMS_ITS | Encounter Summary ---
Author Organization [facility] Healthcare Address [address] [place] [address] Care Team Providers Care Fleet Maintenance Manager Name Role Phone No, Physician Primary Care Provider [phone] Reason for Visit * Auth/Cert (Routine) Specialty Diagnoses / Procedures Referred By Contac t Referred To Contact Diagnoses Nephrolithiasis Nephrolithiasis [N20.0] Procedures [place] CYSTOURETHROSCOPY CYSTOSCOPY REMOVAL STENT - URETERAL EXCHANGE STENT - URETERAL Referral ID Status Reason Start Date Expiration Date Visits Re quested Visits Authorized [id number] 1 1 Encounter Details Date Type Department Care Team (Late st Contact Info) Description 06/06/2024 10:30 AM CDT - 06/06/2024 12:00 PM CDT Surgery [facility] Operating Room [address] [place] [address] Temo Mcintosh MD [address] [place] [address] CYSTOSCOPY Surgery Details Date/Time Status Location OR Service Patient Class Case Cl ass Case Type Trauma Case? 06/06/2024 10:30 AM Posted [facility] OR POD 1 325 Urology Outpatient Elective Panel 1 Procedure [facility] Anes Op Region Wound Class Comments CYSTOSCOPY N/A General Class II - Guido an Contaminated REMOVAL STENT - URETERAL Left Choice Ureter Class II - Clean Contaminated PYELOGRAM - RETROGRADE Left Choice Perineum Cl ass II - Clean Contaminated Surgeon Surgeon Role Service Panel Temo Mcintosh MD Primary Urology 1 Vero Tolentino MD Resident - Assisting Urolog y 1 documented in this encounter Social History Tobacco Use Types Packs/Day Years Used Date Smoking Tobacco: Former Cigarettes 1 11 [id number] Passive Smoke Exposure: Never Smokeless Tobacco: Never Alcohol Use Standard Drinks/Week Comments Yes 14 (1 standard drink = 0.6 oz pu re alcohol) social [facility] Utilities Answer Date Recorded In the past [...] often do you attend chur ch or restorationist services? 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 Not on file Not on file Not on file documented as of this encounter Last Filed Vital Signs Vital Sign Reading Time Taken Comments Blood Pressure 129/78 06/06/2024 11:30 AM CDT Pulse 70 06/06/2024 11:30 AM CDT Temperature 36 ??C (96.8 ??F) 06/06/2024 11:30 AM CDT Respiratory Rate 16 06/06/2024 11:30 AM CDT Oxygen Saturation 97% 06/06/2024 11:30 AM CDT Inhaled Oxygen Concentration - - Weight 83.9 kg (185 lb) 06/06/2024 8:25 AM CDT Height 172.7 cm (5' 8 ) 06/06/2024 8:25 AM CDT Body Mass Index 28.13 06/06/2024 8:25 AM CDT documented in this encounter Discharge Instructions * Discharge Instructions* Vero Tolentino MD - 06/06/2024 9:37 AM CDT DISCHARGE INSTRUCTIONS FOR URETERAL STENT PLACEMENT General Postsurgical Instructions: You may feel mildly dizzy, weak, and drowsy for as long as 24 hours after receiving anesthesia. This can be expected. Have a responsible person with you for the first 24 hours after any outpatient procedure. If you've had manipulation of your urinary tract (kidney, ureter, bladder, prostate, or urethra), some blood in the urine is expected and should improve over the next few days. DO NOT (for the first 24 hours after surgery or while on narcotic pain medicines): DO NOT drive a car, ride a bicycle, or take public transportation. DO NOT participate in physical activities, operate machinery, or make legal decisions. DO NOT drink alcohol or take tranquilizers. DO NOT sign important papers or make important decisions. Activity: Activity as tolerated. Remember heavy strenuous lifting may cause some blood in your urine, this should stop within 24 hours. Call if you see clots in your urine or are unable to urinate You may take showers or baths. Medications: You may take [id number] stool softener to prevent constipation. Take all your home medications as usual Diet: Resume your diet prior to surgery. Seek immediate medical care or contact your caregiver if: You experience a severe headache, persistent dizziness, light-headedness, or visual disturbances. Your surgical site pain is unrelieved by medications. You have a fever of 101?? F (38.5?? C) or above. You experience persistent numbness, tingling, weakness. You experience a rash, hives, or other allergic reaction. You experience difficulty breathing. You develop a cough with sputum production. You experience chest pain. You experience persistent nausea or vomiting. You are unnable to tolerate food or drink. You experience severe constipation that is not relieved by adjusting diet or increasing fluid intake. In an emergency, call 911 or go to an Emergency Department at a nearby hospital. It is important to bring a complete, current list of your medications to any medical appointments or hospitalizations. Make sure you understand these instructions and that you will get help right away if you are not doing well or your condition worsens. Please follow up with Temo Mcintosh MD in 2 weeks with a repeat ultrasound. The urology office will call you to schedule your appointment. If you do not hear from them in 2-3 business days, please call [phone] to schedule your appointment. * Attachments The following attachments cannot be sent through Care Everywhere. * [facility] PATHWAY TO EXCELLENT CARE AFTER SURGERY documented [...] ound healing Take 1 tablet by mouth early intervention specialist before breakfast ondansetron ODT (ZOFRAN-ODT) 4 mg [...] 1 tablet (20 mEq total) by mouth early intervention specialist before breakfast 4 senna-docusate (PERICOLACE) 8.6-50 mg Take 1 tablet by mouth nightly 4 tamsulosin (FLOMAX) 0.4 mg extended release capsule Take 1 capsule (0.4 mg total) by mouth daily 30 capsule 11 4 02/27/20 25 Xarelto 20 mg tabletIndications:D VT Take 1 tablet (20 mg total) by mouth daily with breakfast 09/10/20 documented as of this encounter Discharge Disposition Disposition Code Departure Means Destination Comment s Discharge to home or self care documented in this encounter H&P Notes * Temo Mcintosh MD - 06/06/2024 9:18 AM CDT I have reviewed the H&P, examined the patient, and endorse the findings as written. Plan of Care : Based on the above findings, I consider Hira Evans to be an acceptable risk for : Procedure(s): CYSTOSCOPY REMOVAL STENT - URETERAL EXCHANGE STENT - URETERAL Temo Mcintosh MD Source Note - Linda Thompson NP - 06/02/2024 9:57 AM CDT Images from the original note were not included. [facility] for Preoperative Assessment and Planning Preoperative Evaluation Record Evaluation type/location: TPAP from [facility] Planned procedure site: [facility] PVT OR (Pod 1) Date: 06/02/24 NOTE: This note represents a preoperative evaluation initiated via telephone interview. NO PHYSICALEXAM was performed at the time of initial assessment. A physical exam may be added to this note anddocumented below. Anesthesia Evaluation Hira Evans is a 73 y.o. male CYSTOSCOPY REMOVAL STENT - URETERAL (Left: Ureter) EXCHANGE STENT - URETERAL (Left: Ureter) Pre-Op Diagnosis Codes: * Nephrolithiasis [N20.0] HISTORY HPI Hira Evans is a 73 yo male who is being evaluated prior to undergoing cystoscopy with ureteral stent exchange s/p Cystoscopy, left retrograde pyelogram Diagnostic left ureteroscopy And Left ureteral stent placement on 02/27/2024 - Patient with complex history with cardiac arrest 10/23/23 post-op in PACU (following planned L4-5 spinal decompression and fusion), found to have extensive PE in distal R and L main pulm arteries with extension in all lobar arteries, initiated on anticoagulation with subsequent paraspinal hematoma valerie cord injury and cauda equina injury November leading to paralysis. requiring emergent evacuation on 11/08 with subsequent discontinuation of anticoagulation and IVC filter placement (11/09/23) found to have new/residual DVT 02/2024 now maintained on Xarelto. Spoke with Glenna MACKEY at [facility] Pt requires Pia lift d/t LE Paralysis Past Medical History Information obtained from: guardian and chart. Information obtained during: Telephone Visit NOTE: This note represents a preoperative evaluation initiated via virtual (video or telephone) interview. NO PHYSICAL EXAM was performed at the time of initial assessment. A physical exam may be added to this note and documented below. Neurological + Seizures (x1 episode 10/23/23 post-op- on keppra) Pertinent negatives: neuromuscular disease; CVA/stroke and TIA Comments: Last neuro 02/05/24 OVN: The event that occurred in the PACU does sound concerning for a seizure based on the documented description, including gaze deviation and bilateral clonic movements. The event was provoked by a recent major surgery and subdural hematoma identified on subsequent headimaging. The spell that occurred on January 08 sounds less concerning for a seizure based on the rapid return to baseline after the loss of consciousness. Preliminarily, we will plan to taper his Keppra about 6 months after his provoked seizure, which will be in mid March. We will obtain a 24 hour ambulatory EEG prior to starting the taper to stratify his risk of seizure recurrence. We will also allow some time to pass from his upcoming surgical procedure. Cardiovascular + Hypertension (taken off all antihypertensives now, BPs 110/70s) + Systolic or diastolic dysfunction w/o CHF (TTE 12/20/23: EF 55-60%) Diastolic function: stage I - impaired relaxation LVEF: 50-60%. + Current valvular disease (TTE 12/20/23) - TR - mild. + Other arrhythmia (cardiac arrest post-op 10/23/23) - h/o cardiac arrest. + DVT/PE (s/p IVC filter 11/09/23) - periop VTE and IVC filter in situ. Number of DVT/PE episodes: 2.Last VTE date: 02/2024. Pertinent negatives: CAD (PER CHEST CT 04/11/2024- Multivessel coronary artery disease.); ID ; CABG ;atrial fibrillation; pacemaker/ICD; negative for CHF; drug-eluting stent(s) and bare metal stent(s) Respiratory + Pulmonary hypertension (TTE 12/20/23: Raven PASP, RV mildly reduced systolic function) RV function: mild systolic dysfunction. Pertinent negatives: COPD; sleep apnea (KYLE); no O2 use outside the hospital; non-smoker and no tracheostomy Hepatic / Heme + History of anemia (H/H:WNL on 04/11/2024) Pertinent negatives: liver disease Comments: F/b [facility] Hematology Gastrointestinal + GERD - on daily therapy. Asymptomatic. Renal / + Nephrolithiasis Pertinent negatives: renal disease and dialysis Musculoskeletal/Pain + Osteoarthritis Endocrine / Other + Cancer history- in remission. Cancer type: prostate cancer s/p protatectomy. + Infectious disease (Recent UTI on Cipro) Pertinent negatives: diabetes mellitus; thyroid disease and transplanted organ Functional Capacity Functional capacity: <4 METs and cannot ambulate Comments: Wheel chair bound Review of Systems + pedal edema (Chronic BLE edema) + previous transfusion (11/2023) + muscle weakness (bilateral legs) + vision loss (wears corrective lenses) Pertinent negatives: productive cough; SOB; recent cold/flu; fever; chest pain; orthopnea; PND; bleeding problems and syncope PAT Summary and Plans Cardiac risk classification of planned procedure: low cardiac risk. Preoperative assessment status: complete. Initial preoperative evaluation discussed with: Sharath Gonzalez MD Additional comments: Hira Evans is a 73 y.o. male who is being evaluated prior to undergoing a low cardiac risk surgery. Revised Cardiac Risk Index factors are (none) for a total RCRI of 0 out of 6. Functional capacity is unable to ambulate. Surgically provoked pulmonary embolism leading to PE arrest October 23, 2023 following laminectomy. Unfortunately, his initial course of anticoagulant therapy was complicated by thoracic and lumbar epidural hematoma two weeks postoperatively causing an incomplete spinal cord injury and cauda equina injury November 2023 leading to paralysis. He has currently in a spinal injury cord unit at [facility] Given his epidural hematoma, he had an IVC filter placed November 09, 2023. 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 He has had no complications on anticoagulant therapy since resuming February 2024. Has since seen [facility] Heme 04/11/2024- and underwent BLE US 04/11 - no evidence of acute DVT and Chest CT 04/11- near complete resolution of pulmonary emboli with tiny residual nonocclusive thrombusin a right lower lobe subsegmental pulmonary artery IVC filter remains in place. The patient is on oral anticoagulation therapy with rivaroxaban (XARELTO) and is scheduled for a procedure with a planned/possible nerve block and/or is at low or intermediate risk for perioperative thrombosis. Estimated creatinine clearance is 80 ml/min. We recommend holding all doses of this anticoagulant for 72 hours prior to the procedure. Therapeutic anticoagulation should be resumed post-operatively when the bleeding risk is acceptable. Alternative anticoagulation therapies can be used inthe interim if acceptable. Per Urology & ENT protocol, patient provided directly with instructions. Please call the CPAP chart room clinician ([phone]) to revisit risk assessment, with any questions, or to discuss alternative management plans. Per anesthesia record 10/23/23: Patient noted to be shaking during closure, abated after propofol given. Seized in PACU, started with generalized shaking, R gaze deviation, not following commands, obtunded. Arrested after 15-20 seconds, CPR started. 1x dose code epi given. ROSC after 2min. Notablypost-ictal. Decision made to transfer to ICU. NOTE: This note represents a preoperative evaluation initiated via telephone interview. NO PHYSICALEXAM was performed at the time of initial assessment. A physical exam may be added to this note anddocumented below. Obstructive sleep apnea (KYLE) screening status is STOP-Bang=3 suggesting moderate risk for KYLE. Blood bank needs for day of procedure: No type and screen needed Pending labs/tests include: None 04/11/24 CBC & CMP without significant findings Patient instructions were axed to [facility] Spoke with NARENDRA Manzanares.# [phone] [facility] Complete Preoperative evaluation performed by Linda Thompson NP on 06/02/24 at 11:03 AM . Patient Active Problem List Diagnosis Date Noted Nephrolithiasis 12/25/2023 DVT (deep venous thrombosis) (CMS/HCC) (HCC) 11/29/2023 Anemia 11/29/2023 Paraspinal hematoma 11/29/2023 Hyponatremia 11/29/2023 Elevated transaminase level 11/29/2023 Lower extremity edema 11/29/2023 Scrotal swelling 11/29/2023 Seizure (HCC) 11/29/2023 Prediabetes 11/29/2023 Kidney stone 11/09/2023 Paralysis of both lower limbs (CMS/HCC) (HCC) 11/07/2023 Pulmonary embolism ([facility]) 10/26/2023 S/P spinal fusion 10/23/2023 Cardiac arrest (HCC) 10/23/2023 Left perinephric collection, 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 10/15/2023 Ureteral colic 10/13/2023 UTI (urinary tract infection) 10/13/2023 Hydronephrosis with urinary obstruction due to renal calculus 10/12/2023 Lumbar radiculopathy 10/08/2023 Gross hematuria 10/18/2022 Bladder neck obstruction 10/17/2022 Lesion of urinary bladder 10/17/2022 Prostate cancer ([facility]) 10/17/2022 HTN (hypertension) 10/10/2021 Risk factors for obstructive sleep apnea 10/10/2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/2019 Presence of right artificial [...] equina compression (HCC) DVT (deep venous thrombosis) ([facility]) (HCC) Gastric reflux GERD (gastroesophageal reflux disease) History of melanoma Hypertension Kidney stone Paraspinal hematoma 11/29/2023 Personal history of prostate cancer Pneumonia Pulmonary embolism ([facility]) Seasonal allergies Past Surgical History: Procedure Laterality [...] NEPHROSTOMY PCN LEFT Left 12/26/2023 PROSTATECTOMY 2009 REPLACEMENT TOTAL KNEE Right 2014 REPLACEMENT TOTAL KNEE Left 10/17/2021 REVISION TOTAL KNEE ARTHROPLASTY Right 09/30/2019 THORACIC LAMINECTOMY 11/08/2023 T5-L5, and laminectomy posterior lumbar, repair dural tear VASECTOMY over 30 years ago No Known Allergies Med List Status: Nurse Complete Set By: Chino Ludwig RN at 06/02/2024 8:47 AM Status Comment 06/02/2024 8:47 AM Med list accurate as provided by [facility]. Med list scanned into media Taking? Last Dose Start Date End Date Provider acetaminophen (TYLENOL) 500 mg tablet Past Month 12/27/23 -- Angela Paz MD Take 1 tablet (500 mg total) by mouth every 6 (six) hours as needed for pain Patient taking differently: Take 1 tablet (500 mg total) by mouth every 6 (six) hours as needed forpain acyclovir (ZOVIRAX) 400 mg tablet 06/02/2024 12/10/23 -- Jimenez Henao MD Take 1 tablet (400 mg total) by mouth 2 (two) times a day aluminum-magnesium hydroxide-simethicone (MAALOX) suspension 200-200-20 mg/5 mL Past Month -- -- Fidelia Perdue MD ascorbic acid (VITAMIN C ORAL) 06/02/2024 -- -- Fidelia Perdue MD bisacodyL (DULCOLAX) 10 mg suppository Past Month 12/10/23 -- Jimenez Henao MD Insert 1 suppository (10 mg total) into the rectum daily as needed for constipation cetirizine (ZyrTEC) 10 mg tablet 06/02/2024 03/17/24 -- Fidelia Perdue MD cholecalciferol (VITAMIN D-3) 5,000 unit capsule 06/02/2024 12/10/23 -- Jimenez Henao MD Take 1 capsule (5,000 Units total) by mouth every morning ciprofloxacin (CIPRO) 500 mg tablet 06/02/2024 -- -- Fidelia Perdue MD cyclobenzaprine (FLEXERIL) 5 mg tablet Past Month 12/10/23 -- Jimenez Henao MD Take 1 tablet (5 mg total) by mouth 3 (three) times a day as needed for muscle spasms eszopiclone (LUNESTA) 1 mg tablet 06/01/2024 03/11/24 -- Fidelia Perdue MD furosemide (LASIX) 40 mg tablet 06/02/2024 12/11/23 12/10/24 Jimenez Henao MD Take 1 tablet (40 mg total) by mouth 2 (two) times a day Patient taking differently: Take 1 tablet (40 mg total) by mouth daily before breakfast gabapentin (NEURONTIN) 600 mg tablet Past Month 12/10/23 12/09/24 Jimenez Henao MD Take 1 tablet (600 mg total) by mouth 3 (three) times a day Patient taking differently: Take 1 tablet (600 mg total) by mouth 3 (three) times a day as needed (pain) Lactobacillus acidophilus capsule 06/02/2024 -- -- Fidelia Perdue MD menthol-zinc oxide 0.44-20.6 % ointment Past Month -- -- Fidelia Perdue MD metOLazone (ZAROXOLYN) 5 mg tablet -- -- -- Fidelia Perdue MD miconazole 2 % cream 06/02/2024 -- -- Fidelia Perdue MD miconazole 2 % powder 06/02/2024 12/10/23 -- Jimenez Henao MD Apply topically 2 (two) times a day Patient taking differently: Apply 1 g (1 Application total) topically 2 (two) times a day Mounjaro 10 mg/0.5 mL pen injector Not Taking 12/27/23 -- Fidelia Perdue MD multivitamin tablet 06/02/2024 -- -- Fidelia Perdue MD ondansetron ODT (ZOFRAN-ODT) 4 mg disintegrating tablet Past Month 01/10/24 -- Fidelia Perdue MD pantoprazole DR (PROTONIX) 40 mg EC tablet 06/02/2024 12/11/23 12/10/24 Jimenez Henao MD Take 1 tablet (40 mg total) by mouth daily Patient taking differently: Take 1 tablet (40 mg total) by mouth every morning potassium chloride ER 20 mEq CR tablet 06/02/2024 01/22/24 -- Fidelia Perdue MD senna-docusate (PERICOLACE) 8.6-50 mg 06/02/2024 12/10/23 -- Jimenez Henao MD Take 1 tablet by mouth nightly Patient taking differently: Take 1 tablet by mouth early intervention specialist before breakfast tamsulosin (FLOMAX) 0.4 mg extended release capsule 06/02/2024 02/27/24 02/26/25 Jessenia Ash MD Take 1 [...] nightly 2 tablets Xarelto 20 mg tablet 06/02/2024 02/07/24 -- Fidelia Perdue MD -- -- -- -- No current facility-administered medications for this encounter. Current Outpatient Medications: acetaminophen (TYLENOL) 500 mg tablet acyclovir (ZOVIRAX) 400 mg tablet aluminum-magnesium hydroxide-simethicone (MAALOX) suspension 200-200-20 mg/5 mL ascorbic acid (VITAMIN C ORAL) bisacodyL (DULCOLAX) 10 mg suppository cetirizine (ZyrTEC) 10 mg tablet cholecalciferol (VITAMIN D-3) 5,000 unit capsule ciprofloxacin (CIPRO) 500 mg tablet cyclobenzaprine (FLEXERIL) 5 mg tablet eszopiclone (LUNESTA) 1 mg tablet furosemide (LASIX) 40 mg tablet gabapentin (NEURONTIN) 600 mg tablet Lactobacillus acidophilus capsule menthol-zinc oxide 0.44-20.6 % ointment miconazole 2 % cream miconazole 2 % powder multivitamin tablet ondansetron ODT (ZOFRAN-ODT) [address] tablet pantoprazole [address] (PROTONIX) 40 mg EC tablet potassium chloride ER 20 mEq CR tablet senna-docusate (PERICOLACE) 8.6-50 mg tamsulosin (FLOMAX) 0.4 mg extended release capsule Xarelto 20 mg tablet metOLazone (ZAROXOLYN) 5 mg tablet Mounjaro 10 mg/0.5 mL pen injector tamsulosin (FLOMAX) 0.4 mg extended release capsule Social History Tobacco Use Smoking Status Former Current packs/day: 0.00 Average packs/day: 1 pack/day for 11.0 years (11.0 ttl pk-yrs) Types: Cigarettes Start date: 1968 Quit date: 1979 Years since quittin.6 Passive exposure: Never Smokeless Tobacco Never Alcohol Use: Not At Risk (05/28/2024) AUDIT-C Frequency of Alcohol Consumption: 4 or more times a week Average Number of Drinks: 1 or 2 Frequency of Binge Drinking: Never Substance and [...] by TW Conv) Anesthesia problems Neg Hx Relevant diagnostics: ECG(s): 10/25/23: Normal sinus rhythm Left axis deviation Nonspecific ST abnormality Abnormal ECG Echocardiogram(s): 12/20/23: SUMMARY: Limited TTE. Grossly normal LV size and systolic function. Miild concentric LVH. LVEF 55-60%. Normal RV size with mildly reduced systolic function. Mild TR. Normal PASP. Normal IVC. E/A reversal c/w impaired diastolic function. See study dated 10/2023 for more complete report. 10/24/23: TTE: SUMMARY: TDS. Mild-moderate RV cavity enlargement with Terrell sign. Overall, normal RV function (TAPSE 2.5 cm). Estimated PA systolic pressure 40+RA(8) mmHg. No valvular abnormality noted. LV cavity size is normal with normal systolic function. LVEF70%. Grade I diastolic function with normal mean LA pressure. Normal Inferior vena cava. Normal aorta. No prior study. Stress test(s): N/A Cardiac catheterization(s): N/A PFT(s): N/A Vascular studies: 11/30/23: Right: Duplex scan reveals dilated vein with echogenic, intraluminal, non-compressible material consistent with acute deep vein thrombosis in the right lower extremity. Deep veins involved include the right common femoral vein, profunda femoral vein, femoral vein, popliteal vein, posterior tibial veins and peroneal veins. Left: Duplex scan reveals dilated vein with echogenic, intraluminal, non-compressible material consistent with acute deep vein thrombosis in the left lower extremity. Deep veins involved include the common femoral vein, profunda femoral vein, femoral vein, popliteal vein, posterior tibial veins and peroneal veins. Comments: Unable to visualize the bilateral iliac veins. Other: BLE US 04/11/2024- CONCLUSIONS: 1. There is no evidence of acute deep vein thrombosis in the lower extremities bilaterally. Noninvasive venous studies cannot rule out isolated calf vein obstruction. CHEST CT 04/11/2024- There has been near complete resolution of previously seen pulmonary emboli with No only minimal residual nonocclusive thrombus within the right lower lobe subsegmental pulmonary artery (series 5, image 158). No acute pulmonary emboli. The thoracic aorta is normal in caliber. Heart size is normal. No pericardial effusion. Multivessel coronary artery disease. The thyroid is normal. No thoracic lymphadenopathy. There is fluid within the superior pericardial recess. Minimal bibasilar atelectasis. Stable 4 mm nodule in the periphery of the right upper lobe (series 6, image 31). Previously seen peripheral groundglass opacities in the right upper and middle lobes have resolved. No focal consolidation, pleural effusion, or pneumothorax. The central airways are patent. Imaged portions of the upper abdomen show no acute findings. Nonobstructing tiny right renal calculus. Multiple scattered hypoattenuating lesions in the liver appear unchanged, the majority of which are consistent with simple cysts while others are too small to characterize. Recently seen left renal subcapsular hematoma has resolved. No suspicious osseous lesions. Healed left rib fracture deformities. IMPRESSION: 1. Near complete resolution of pulmonary emboli with tiny residual nonocclusive thrombus in a right lower lobe subsegmental pulmonary artery. No acute pulmonary embolus. venous duplex ultrasound February 07, 2024: Both common femoral, superficial femoral, popliteal, peroneal and left posterior tibial veins are distended consistent with acute deep vein thrombosis. There were no vitals filed for this [...] for requested labs within last 30 days. Joni index score: 60 documented in this encounter Miscellaneous Notes * Op Note - Temo Mcintosh MD - 06/06/2024 10:18 AM CDT Operative Report SURGEON: Temo Mcintosh MD SURGICAL TEAM: Surgeons and Role: * Temo Mcintosh MD - Primary * Vero Tolentino MD - Resident - Assisting DATE OF SURGERY : 06/06/2024 PREOPERATIVE DIAGNOSIS: Pre-op Diagnosis * Nephrolithiasis [N20.0] Hydronephrosis POSTOPERATIVE DIAGNOSIS: Post-op Diagnosis * Nephrolithiasis [N20.0] PROCEDURE: Cystoscopy, left retrograde pyelogram Left ureteral stent removal ANESTHESIA: General INDICATION FOR PROCEDURE: 73-year-old man with complex medical/surgical history that is presenting for possible stent removalgiven prior noted difficulties with ureteroscopy and concern for possible obstruction. OPERATIVE NOTE: Findings: Glandular traumatic hypospadias Prior prostatectomy Friable bladder Tortuous left UPJ, hydronephrosis Brisk elimination of contrast from the ureter, so no stent exchanged The patient was identified in the preoperative unit where consent was obtained. He was then transported to the operating room and placed on the operating room table in supine position. General anesthesia was induced and perioperative antibiotics were given. He was moved to dorsal lithotomy taking care to pad all pressure points. SCDs were on and functioning. The genitals were prepped and draped in normal sterile fashion. A time-out was performed confirming the correct patient and procedure. We started the case by atraumatically introducing a 22 Portuguese rigid cystoscope. Of note, there was glandular traumatic hypospadias given his chronically indwelling Harris catheter. Upon entry into thebladder we noted intense friability. The indwelling stent could be seen emanating from the left ureteral orifice. There was light oozing from the bladder even with gentle manipulation of the scope. Alongside the indwelling stent, a open-ended 5 Portuguese catheter was introduced with the assistance of a Glidewire. This could only be advanced into the mid ureter. A retrograde pyelogram was obtained.This showed nice opacification of the ureter. There was a tortuous UPJ. There was moderate to severe hydronephrosis. We did not identify any filling defects within the kidney. The indwelling ureteral hardware was removed to determine the drainage of the kidney. There was brisk elimination of contrast from the ureter. The contrast from the kidney was not as quick to be eliminated but did appear slightly improved. Given the above findings, we elected to remove the stent. This concluded the case. There were no immediate complications. A new 16 Portuguese Harris catheter was introduced with 10 cc of sterile water being instilled into the balloon. Anesthesia was reversed andthe patient was transported to PACU in stable condition. The patient will be closely monitored in the postoperative period for return of renal colic. We will also plan on early repeat imaging with a renal ultrasound within the next 2 weeks. If there is anysymptomatic or radiographic deterioration, he will likely need to revisit renal drainage. Preferably drainage will be achieved via a nephrostomy tube as the bladder is extremely hostile and appears to be unfavorable for chronic stent exchanges. Estimated Blood Loss: No blood loss documented. Blood/Blood Products Transfused: None Complications: None Condition on Discharge from the operating room was stable Temo Mcintosh MD Date: 06/06/2024 Time: 10:18 AM TEACHING ATTESTATION : I was present and directly participated in the entire procedure (including opening and closing). * Pre-Procedure Instructions - Linda Thompson NP - 06/02/2024 10:53 AM CDT [facility] Location: [facility] The night before your surgery: * Do not eat anything after midnight the night before your procedure. The morning of your surgery: * You may have clear liquids on your surgery day. You must stop drinking two hours before you arrive to the surgery facility. Acceptable clear liquids include water, clear sports drinks, black coffee, tea, or clear soda. DO NOT drink any milk, creamer, or alcohol. * Your surgeon's office may have provided additional instructions or restrictions. Please follow those instructions. * You may brush your teeth and rinse your mouth out. * Do not glue your dentures. * Do not wear jewelry, body piercings, makeup, hairpins, false eyelashes or contact lenses to the hospital. * Leave any valuables at home or with your family. * If you have an implantable device with a remote, bring the remote with you on the day of surgery. Outpatient Surgery: * You must have a responsible adult drive you home and stay with you for 24 hours after your surgery * You cannot be alone at home or in a hotel * Please call your surgeon's office if you do not have someone to drive you home and/or stay with you after surgery * Please bring any items you may need to spend the night in the hospital. Sometimes patients need to be cared for in the hospital overnight. Instructions For Your Medications: Pre-Surgery Instructions: Medication Instructions acetaminophen (TYLENOL) 500 mg tablet Take on day of surgery if needed acyclovir (ZOVIRAX) 400 mg tablet Take morning of surgery aluminum-magnesium hydroxide-simethicone (MAALOX) suspension 200-200-20 mg/5 mL Don't take on day of surgery ascorbic acid (VITAMIN C ORAL) Don't take on day of surgery bisacodyL (DULCOLAX) 10 mg suppository Don't take on day of surgery cetirizine (ZyrTEC) 10 mg tablet Take on day of surgery if needed cholecalciferol (VITAMIN D-3) 5,000 unit capsule Don't take on day of surgery ciprofloxacin (CIPRO) 500 mg tablet Take morning of surgery cyclobenzaprine (FLEXERIL) 5 mg tablet Take on day of surgery if needed eszopiclone (LUNESTA) 1 mg tablet Ok to take evening prior to procedure furosemide (LASIX) 40 mg tablet Don't take on day of surgery gabapentin (NEURONTIN) 600 mg tablet Take morning of surgery Lactobacillus acidophilus capsule Don't take on day of surgery menthol-zinc oxide 0.44-20.6 % ointment Don't take on day of surgery miconazole 2 % cream Take on day of surgery if needed miconazole 2 % powder Don't take on day of surgery multivitamin tablet Stop taking 1 week prior to surgery ondansetron ODT (ZOFRAN-ODT) 4 mg disintegrating tablet Take on day of surgery if needed pantoprazole DR (PROTONIX) 40 mg EC tablet Take morning of surgery potassium chloride ER 20 mEq CR tablet Don't take on day of surgery senna-docusate (PERICOLACE) 8.6-50 mg Don't take on day of surgery Xarelto 20 mg tablet Stop taking 3 days prior to surgery metOLazone (ZAROXOLYN) 5 mg tablet Don't take on day of surgery Mounjaro 10 mg/0.5 mL pen injector Stop taking 1 week prior to surgery tamsulosin (FLOMAX) 0.4 mg extended release capsule Take the evening prior to surgery per normal schedule General Instructions For Medications: For medications that you are instructed to take on the morning of surgery, take the medications with a few sips of water. Stop all of these medications 7-14 days prior to your surgery: Vitamin E, Herbal medicines, Diet Pills If you use inhalers, please bring them with you on the day of your procedure. If you have pain, you may take tylenol (acetaminophen). Do not take more than 6 tablets or 3000 mg (3 g) within a 24 period. Call your surgeon and the CPAP clinic if any of the following happens before surgery: Any changes in your health You have a fever You have any signs of an infection (chest, urinary tract or tooth) You have been to the Emergency Room or were in the hospital You have started taking any new medications If laboratory testing was completed during your visit, we will only contact you regarding any results that require you to take additional action prior to your planned procedure. * Pre-Procedure Instructions - Chino Ludwig RN - 06/02/2024 9:04 AM CDT [facility] ([facility]) PRE-SURGICAL NURSING INSTRUCTIONS Telephone Assessment General Information Discussed with Patient: Surgery location provided to patient. Arrival time and surgical time will be provided to the patient by their surgeon. You should wear clothing that is clean, loose, comfortable and easy to get in and out of on the dayof surgery. You should remove nail coverings, artificial nails and nail indonesian prior to the day of surgery. You should leave your valuables and any jewelry at home. No metal or piercings are allowed in the operating room. You should bring your insurance card, a photo ID (example: Food Service Clerk's License) and a method of payment for any insurance copay, deductible or copay for discharge medications. You should bring a complete, up-to-date, list of all your medications on the day of surgery, including any over the counter medications or supplements you may take. Please note on your medication list, the last date & time you took each medication. The healthcare team, on the day of surgery, will ask for this information. You should bring your Advanced Directive and/or Living Will with you on the day of surgery if you have not verified a copy is already in your Epic Chart. If you are having surgery at [facility], please arrive on the day of surgery with the name and phone number of your local 24 hour pharmacy. Due to evening discharges, your routine pharmacy may be closed. In order to obtain your prescriptions that evening, your surgeon may need to send prescriptions to this pharmacy or have you take prescriptions to this pharmacy when you are discharged. Without this information, you may not be able to obtain your prescriptions that evening. A Guide for Patients Having Surgery: Your Pathway to Excellent Care OUR GOAL IS TO PROVIDE YOU WITH EXCELLENT CARE Use this guide to learn about what you can do before, during and after surgery to help your recovery. You are the most important person on your health care team. By becoming informed and involved, you can contribute to the success of your surgery. If your surgeon's directions are different than those in this guide, talk with your nurse or surgeon to confirm the information. It is important that you understand how to take care of yourself at home after surgery. Be sure to bring this guide with you on the day of surgery and take it home with you after surgery. Write down questions for your nurse or surgeon on the last page of this booklet. Important pages to be reviewed BEFORE surgery: Page 1: QR codes for Surgery Center maps Page 3: Types of Anesthesia Page 5: Tips for the day & night before surgery Page 6: When to stop eating BEFORE surgery and examples of clear liquids Page 7-10: Preventing Infection: Chlorhexidine Gluconate (CHG) Bathing Instructions You may access A Guide for Patients Having Surgery: Your Pathway to Excellent Care by the followinglink: [email or web address] How To Prepare Your Skin For Surgery Below is the Pre-Surgical Bathing Protocol you should follow for your surgery. If your surgeon provides you different bathing instructions, please follow your surgeon's orders. Normal Bathing: Bathe with regular soap the night before and/or day of surgery. Normal Bathing Protocol Bathe with your normal soap the night before and/or the morning of surgery. Wear clean clothes or pajamas to sleep in. After showering DO NOT put on deodorant, hair products, conditioners, lotions, creams, powders, Vaseline or any non-essential products. Remove nail coverings, artificial nails and nail indonesian. Place clean linens on your bed the night before surgery. Shaving: You may shave your face, legs and underarms during your evening shower. Avoid shaving on the day of surgery. Travel/Exposure Screening: Travel Screening Have you traveled outside the [place] in the last 6 months?: No Exposure Screening Have you been exposed to anyone who is sick in the last 30 days?: No Have you been exposed to or tested positive for COVID-19 within the last 10 days?: No Infectious Disease Screening Are you having any of the following:: None As of 08/29/2022 any COVID TESTING required for surgery will be set up by your surgeon's office. Please reach out to your surgeon's office if you develop any COVID symptoms, test positive for COVID or are exposed to a COVID positive person. If you have questions, please call the CPAP Staff at [phone], Sunday-Sunday 8am-4:30pm. All patients should read the below section: Information on [facility], [facility] the [facility]: Please view [email or web address] (Patient & Visitor Information) for additional details regarding Advanced Directive forms, AWARE, directions, parking information, lodging, Internet access, dining and more. Information on [facility] or [facility] ([facility]): Please view [email or web address] (Patient and Visitor Information) for parking/directions and more. For MyChart information, to activate account or password recovery, please go to [email or web address] or call [phone] (toll-free: [phone]), Sun- Sunday 8am-5pm. Information for Suicide Prevention: National Suicide Prevention Lifeline (0-450- 819-GQRQ (2504)) or call or text 910. Jaman resources: [email or web address]. Surgery Times: For patients having surgery @ [facility] or [facility] ([facility]), if your surgeon's office has not notified you of your surgery time by NOON THE BUSINESS DAY BEFORE your surgery, please call [phone] and ask for your surgeon's office Dr. Mcintosh [facility]operative [facility] Planning ([facility]) does not provide arrival times for the day of surgery or provide the duration of surgery. This information is provided by your surgeon'soffice or by the center where you are having surgery. We appreciate your understanding. * Perioperative Nursing Note - Chino Ludwig RN - 06/02/2024 8:48 AM CDT [facility] Preoperative Assessment and Planning Perioperative Nursing Note Telephone Preoperative Evaluation ([facility]) - TELEPHONE ONLY, NO PHYSICAL EXAM Date: 06/02/24 [facility] with [facility] There were no vitals filed for this visit. CHEST CIRCUMFERENCE: Social History Tobacco Use Smoking Status Former Current packs/day: 0.00 Average packs/day: 1 pack/day for 11.0 years (11.0 ttl pk-yrs) Types: Cigarettes Start date: 1968 Quit date: 1979 Years since quittin.6 Passive exposure: Never Smokeless Tobacco Never Substance and Sexual Activity Drug Use Yes Frequency: 2.0 times per week Types: Medical marijuana Alcohol Use Q1: How often do you have a drink containing alcohol?: 4 or more times a week Q2: How many drinks containing alcohol do you have on a typical day when you are drinking?: 1 or 2 Outpatient Medications Marked as Taking for the 06/06/24 encounter (Hospital Encounter) Medication Sig Dispense Refill acetaminophen (TYLENOL) 500 [...] times a day as needed(apply to buttocks) miconazole 2 % cream Apply 1 Application topically 2 (two) times a day miconazole 2 % powder Apply topically 2 (two) times a day (Patient taking differently: Apply 1 g (1Application total) topically 2 (two) times a day) multivitamin tablet Take 1 tablet by mouth early intervention specialist before breakfast ondansetron ODT (ZOFRAN-ODT) 4 mg [...] 1 tablet (20 mEq total) by mouth early intervention specialist before breakfast senna-docusate (PERICOLACE) 8.6-50 mg Take 1 tablet by mouth nightly (Patient taking differently: Take 1 tablet by mouth early intervention specialist before breakfast) tamsulosin (FLOMAX) 0.4 mg extended release capsule Take 1 capsule (0.4 mg total) by mouth daily (Patient taking differently: Take 1 capsule (0.4 mg total) by mouth 2 (two) times a day) 30 capsule 11 Xarelto 20 mg tablet Take 1 tablet (20 mg total) by mouth daily with breakfast Implants Bone Cement [employer] 6197-9-010 Simplex P Full Dose Radiopaque Preblend Cement Bone Tobramycin - S0- [id number] - Implanted (Right) Knee Inventory item: [employer] Simplex P Full Dose Radiopaque Preblend Cement Bone [id number] Model/Cat number: [id number] Serial number: 0 Cast Iron Drain Pipe Layer: [employer] Lot number: [id number] Device identifier: [id number] Device identifier type: GS1 As of 09/30/2019 Status: Implanted Other - see comments [employer] [id number] Kandace II 15mm Constrain Knee 5-6 Insert Articular Uhmwpe- S0 - [id number] - Implanted (Right) Knee Inventory item: [employer] Kandace Ii 15mm Constrain Knee 5-6 Insert ArticularUhmwpe [id number] Model/Cat number: [id number] Serial number: 0 Cast Iron Drain Pipe Layer: [employer] Lot number: [id number] As of 09/30/2019 Status: Implanted [employer] [id number] Legion 10mm Screw Knee 6 Wedge Femoral - S0 - [id number] -Implanted (Right) Knee Inventory item: [employer] Legion 10mm Screw Knee 6 Wedge Femoral [id number] Model/Cat number: [id number] Serial number: 0 Cast Iron Drain Pipe Layer: [employer] Device identifier: [id number] Device identifier type: [facility] As of 09/30/2019 Status: Implanted [employer] [id number] Legion Constrain Knee Right 6 Component Femoral Oxinium - S0 - [id number] - Implanted (Right) Knee Inventory item: [employer] Legion Constrain Knee Right 6 Component Femoral Oxinium [id number] Model/Cat number: [id number] Serial number: 0 Cast Iron Drain Pipe Layer: [employer] Lot number: [id number] As of 09/30/2019 Status: Implanted [employer] [id number] Legion 5mm Alcon Step Knee Right Medial Left Lateral 5-6 Wedge - S0 - [id number] - Implanted (Right) Knee Inventory item: [employer] Legion 5mm Alcon Step Knee Right Medial Left Lateral5-6 Wedge [id number] Model/Cat number: [id number] Serial number: 0 Cast Iron Drain Pipe Layer: [employer] Device identifier: [id number] Device identifier type: [facility] As of 09/30/2019 Status: Implanted [employer] [id number] Legion 15mm 160mm Press Fit Knee Stem Femoral - S0 - [id number] - Implanted (Right) Knee Inventory item: [employer] Legion 15mm 160mm Press Fit Knee Stem Femoral [id number] Model/Cat number: [id number] Serial number: 0 Cast Iron Drain Pipe Layer: [employer] Lot number: [id number] As of 09/30/2019 Status: Implanted [employer] [id number] Legion 10mm Screw Knee 6 Wedge Femoral - S0 - [id number] -Implanted (Right) Knee Inventory item: [employer] Legion 10mm Screw Knee 6 Wedge Femoral [id number] Model/Cat number: [id number] Serial number: 0 Cast Iron Drain Pipe Layer: [employer] Lot number: [id number] As of 09/30/2019 Status: Implanted [employer] [id number] Legion Revision Knee Right 5 Baseplate Tibial - S0 - [id number] - Implanted (Right) Knee Inventory item: [employer] Legion Revision Knee Right 5 Baseplate Tibial [id number] Model/Cat number: [id number] Serial number: 0 Cast Iron Drain Pipe Layer: [employer] Lot number: [id number] Device identifier: [id number] Device identifier type: [facility] As of 09/30/2019 Status: Implanted [employer]tho [id number] Legion 15mm 160mm Press Fit Knee Stem Femoral - S0 - [id number] - Implanted (Right) Knee Inventory item: [employer] Legion 15mm 160mm Press Fit Knee Stem Femoral [id number] Model/Cat number: [id number] Serial number: 0 Cast Iron Drain Pipe Layer: [employer] Lot number: [id number] Device identifier: [id number] Device identifier type: [facility] As of 09/30/2019 Status: Implanted [employer] 5517-F-501 Triathlon Cruciate Retain Bead Knee Left 5 Component Femoral Pa - Sn/A - [id number] - Implanted (Left) Knee Inventory item: [employer] Triathlon Cruciate Retain Bead Knee Left 5 Component Femoral Pa 5517-F-501 Model/Cat number: [id number] Serial number: N/A Cast Iron Drain Pipe Layer: [employer] Lot number: [id number] Device identifier: [id number] Device identifier type: GS1 As of 10/17/2021 Status: Implanted [employer] 5536-B-600 Triathlon Knee 6 Baseplate Tibial Tritanium - Sn/A - [id number] - Implanted (Left) Knee Inventory item: [employer] Triathlon Knee 6 Baseplate Tibial Tritanium 5536-B-600 Model/Cat number: [id number] Serial number: N/A Cast Iron Drain Pipe Layer: [employer] Lot number: [id number] Device identifier: [id number] Device identifier type: GS1 As of 10/17/2021 Status: Implanted [employer] 6118-A-844-E Insert Tibial Triathlon 6 H10mm Knee Bearing Condylar Stabilize Sterile - Sn/A - [id number] - Implanted (Left) Knee Inventory item: [employer] Insert Tibial Triathlon 6 H10mm Knee Bearing Condylar Stabilize Sterile 6143-K-432-E Model/Cat number: [id number] Serial number: N/A Cast Iron Drain Pipe Layer: [employer] Lot number: [id number] Device identifier: [id number] Device identifier type: GS1 As of 10/17/2021 Status: Implanted Stent [employer] [id number] 6fr 26cm 145cm Radiopaque Positioner Filiform Flexible Tip - [id number] - Implanted (Left) Ureter Inventory item: [employer] [id number] 6fr 26cm 145cm Radiopaque Positioner Filiform Flexible Tip Model/Cat number: [id number] Cast Iron Drain Pipe Layer: [employer] Lot number: [id number] Device identifier: [id number] Device identifier type: GS1 As of 02/27/2024 Status: Implanted Type Not Specified [employer] 6197-9-010 Simplex P Full Dose Radiopaque Preblend Cement Bone Tobramycin - [id number] - Implanted (Right) Knee Inventory item: [employer] Simplex P Full Dose Radiopaque Preblend Cement Bone [id number] Model/Cat number: [id number] Cast Iron Drain Pipe Layer: [employer] Device identifier: [id number] Device identifier type: GS1 As of 09/30/2019 Status: Implanted [employer] Crushed Chip Frozen Graft 30ml Bone Cancellous [id number] - [id number] - Implanted Spine Lumbar Inventory item: [employer] Crushed Chip Frozen Graft 30ml Bone Cancellous [id number] Model/Cat number: [id number] Cast Iron Drain Pipe Layer: [employer] Lot number: [id number] As of 10/23/2023 Status: Implanted [employer] Allograft Bone Putty 2.5cc 700-025 - [id number] - Implanted Spine Lumbar Inventory item: [employer] Allograft Bone Putty 2.5CC 700-025 Model/Cat number: [id number] Cast Iron Drain Pipe Layer: [employer] Lot number: [id number] Device identifier: [id number] Device identifier type: GS1 As of 10/23/2023 Status: Implanted [employer] Creo Od7.5 Mm L55 Mm Thread Polyaxial Spine Screw Bone Titanium 5146.1757 - [id number] - Implanted Spine Lumbar Inventory item: [employer] Cre[employer] Od7.5 Mm L55 Mm Thread Polyaxial Spine Screw Bone Titanium 5146.1757 Model/Cat number: [id number] Cast Iron Drain Pipe Layer: [employer] As of 10/23/2023 Status: Implanted [employer] Creo Od7.5 Mm L50 Mm Thread Polyaxial Spine Screw Bone Titanium 5146.1752 - [id number] - Implanted Spine Lumbar Inventory item: [employer] Creo Od7.5 Mm L50 Mm Thread Polyaxial Spine Screw Bone Titanium 5146.1752 Model/Cat number: [id number] Cast Iron Drain Pipe Layer: [employer] As of 10/23/2023 Status: Implanted [employer] Creo Thread Spinal Cap Locking Nonsterile 1119.0010 - [id number] - Implanted Spine Lumbar Inventory item: [employer] Creo Thread Spinal Cap Locking Nonsterile 1119.0010 Model/Cat number: [id number] Cast Iron Drain Pipe Layer: [employer] As of 10/23/2023 Status: Implanted [employer] Implant Spinal Sable [id number] 7-14mm 15 Deg 1172.1s - [id number] - Implanted Spine Lumbar Inventory item: [employer] Implant Spinal Sable [id number] 7-14mm 15 Deg 1172.1S Model/Cat number: [id number]. Cast Iron Drain Pipe Layer: [employer] As of 10/23/2023 Status: Implanted [employer] Creo 5.5mm 45mm Curve Daniel Spinal Titanium 1119.7045 - [id number] - Implanted Spine Lumbar Inventory item: [employer] Creo 5.5mm 45mm Curve Daniel Spinal Titanium 1119.7045 Model/Cat number: [id number] Cast Iron Drain Pipe Layer: [employer] As of 10/23/2023 Status: Implanted Nidia Riversalign 30mm 7fr 50mm 65cm Introducer Sheath [id number] - [id number] -Implanted Inventory item: NIDIA Riversalign 30mm 7fr 50mm 65cm Introducer Sheath [id number]/Cat number: [id number] Cast Iron Drain Pipe Layer: [employer] Ondina Fam Lot number: [id number] As of 11/09/2023 Status: Implanted SKIN Wound (LDAs) Type of Wound (LDA): (none) SCREENINGS Jnoi index score: 60 NUTRITION PATIENT CARE PLANNING Advance Directives (For Healthcare) Have you reviewed your Advance Directive and is it valid for this stay?: Yes Advance Directive: Patient has advance directive, copy in chart Assistive Devices/DME: Eyeglasses, Manual wheelchair Hearing - Right Ear: Functional Hearing - Left Ear: Functional Discharge Planning Type of Residence: [facility] Care Facility Name: [facility] Arrangements: Other (Comment) (Assisted Living) Support Systems: Spouse/significant other, Home care staff Patient expects to be discharged to:: Assisted Living CAR 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 All other information pulled in from TPAP completed by Cory Miller RN on 05/28/2024 documented in this encounter Plan of Treatment Not on file documented as of this encounter Procedures Procedure Name Priority Date/Time Associated Diagnosis Comments FL FLUOROSCOPY < 1 HOUR IP Routine 06/06/2024 10:22 AM CDT PYELOGRAM - RETROGRADE 06/06/2024 9:29 AM CDT Nephrolithiasis REMOVAL STENT - URETERAL 06/06/2024 9:29 AM CDT Nephrolithiasis CYSTOSCOPY 06/06/2024 9:29 AM CDT Nephrolithiasis documented in this encounter [...] Electronically signed by: Carlos Manuel Mishra M.D. Temo BYRDG US PROCEDURES Final Result * FL Fluoroscopy < 1 Hour (06/06/2024 10:22 AM CDT) Narrative [facility] - 06/06/2024 10:22 AM CDT The images from this study are not interpreted by Radiology. ??Please refer to the physician's procedure / OR operative note. Temo Mcintosh MD G FLUOROSCOPY PROCEDUR ES Final Result [facility] documented in this encounter Visit Diagnoses Diagnosis Nephrolithiasis- Primary Calculus of kidney Nephrolithiasis Calculus of kidney Nephrolithiasis Calculus of kidney Nephrolithiasis Calculus of kidney documented in this encounter Admitting Diagnoses Diagnosis Nephrolithiasis Calculus of kidney documented in this encounter Administered Medications Inactive Administered Medications - up to 3 most recent administrations Medication Order MAR Action Action Date Dose Rate Site Carrier Fluids for Secondary Infusion - 0.9% Sodium Chloride 30 mL, intravenous, As needed, For priming tubing and/or flushing, Starting on Sun06/06/24 at 0824, Pre-Op, 0-250 ml/hr to flush line after IV infusions when no maintenance IV ordered. Infuse 30mL at the same rate as the secondary infusion. Run as primary IV, not intended for KVO. iothalamate meglumine (CONRAY) 60 % injection As needed, Starting on Sun06/06/24 at 1015, Intra-Op Given 06/06/2024 10:15 AM CDT 30 mL Lactated Ringer's (LR) infusion 30 mL/hr, intravenous, Continuous, Starting on Sun06/06/24 at 0900, Pre-Op Restarted 06/06/2024 10:30 AM CDT Rate/Dose Verify 06/06/2024 9:27 AM CDT 30 mL/h r New Bag 06/06/2024 8:35 AM CDT 30 mL/hr 30 mL/hr sodium chloride 0.9% flush 0.5-20 mL 0.5-20 mL, intra-catheter, As needed, line care, Starting on Sun06/06/24 at 0824, Pre-Op, Flush volume based on line type and size. Flush before and after each use. sodium chloride 0.9% irrigation As needed, Starting on Sun06/06/24 at 0937, Intra-Op Given 06/06/2024 10:14 AM CDT 3,000 mL Given 06/06/2024 9:50 AM CDT 3,000 mL Given 06/06/2024 9:37 AM CDT 1,000 mL documented in this encounter Discontinued Medications Medication Sig Discontinue Reason Start Date End Da te nitrofurantoin monohydrate (MACROBID) 100 mg capsule Take 1 capsule (100 mg total) by mouth 2 (two) times a day Therapy completed 04/04/2024 06/02/2024 levETIRAcetam (KEPPRA) 500 mg tablet Take 500 mg in the morning and 1000 mg at night for 2 weeks, THEN take 500 mg twice a day for 2 weeks. THEN take 500 at night only for 2 weeks. Then stop Keppra. Call in 2 weeks with an update, call ANSELMO if Hira has a seizure. Therapy completed 04/15/2024 06/02/2024 hydroCHLOROthiazide (HYDRODIURIL) 12.5 mg tablet Therapy completed 01/21/2024 06/02/2024 kbyycuvb-vjjwktips-pfwsw um B 7-7-1.5 gram powder in packetIndications:wound Take 1 Dose by mouth 2 (two) times a day Scout Therapy completed 06/02/2024 documented as of this encounter Historical Medications * This list may reflect changes made after this encounter. ciprofloxacin (CIPRO) 500 mg tabletIndications :Urinary Tract/Genitourina ry Infection Take 1 tablet (500 mg total) by mouth 2 (two) times a day Lactobacillus acidophilus capsuleIndication s:uti Take 1 tablet by mouth 2 (two) times a day aluminum-magnesiu m hydroxide-simethi cone (MAALOX) suspension 200-200-20 mg/5 mL Take 30 mL by mouth 2 (two) times a day as needed (mix with calprotect and apply to buttocks) menthol-zinc oxide 0.44-20.6 % ointment Apply 1 Application topically 2 (two) times a day as needed (apply to buttocks) miconazole 2 % creamIndications: redness, apply to groin Apply 1 Application topically 2 (two) times a day added in this encounter Active and Recently Administered Medications Times are shown in CDT. Scheduled Medication Order 06/04/2024 06/05/2024 06/06/2024 acetaminophen (TYLENOL) tablet 1,000 mg 1,000 mg, oral, Once, On Sun06/06/24 at 1100, For 1 dose, Phase I, When able to tolerate PO., Indications: Pain 1100 (Due) cefTRIAXone (ROCEPHIN) 2,000 mg/20 mL in sterile water (premix) 2,000 mg (COMPLETED) 2,000 mg, intravenous, at 240 mL/hr, Administer over 5 Minutes, Once, On Sun06/06/24 at 1015, For 1 dose, Pre-Op, Indications: Prophylaxis, Surgical 0942 (Given - Provid er: Kaiser Adair CRNA) Continuous Medication Order 06/04/2024 06/05/2024 06/06/2024 Lactated Ringer's (LR) infusion 30 mL/hr, intravenous, Continuous, Starting on Sun06/06/24 at 0900, Pre-Op 0835 (New Bag - Prov ider: Mary Becerril RN)0900 (Due)0927 (Rate/Dose Verify - Provider: Kaiser Adair CRNA)1029 (Paused - Provider: Kaiser Adair CRNA - Comment: Switch to gravity)1030 (Restarted - Provider: Kaiser Adair CRNA)1623 (Due: Stopped) PRN Medication Order 06/04/2024 06/05/2024 06/06/2024 Carrier Fluids for Secondary Infusion - 0.9% Sodium Chloride 30 mL, intravenous, As needed, For priming tubing and/or flushing, Starting on Sun06/06/24 at 0824, Pre-Op, 0-250 ml/hr to flush line after IV infusions when no maintenance IV ordered. Infuse 30mL at the same rate as the secondary infusion. Run as primary IV, not intended for KVO. haloperidol (HALDOL) injection 1 mg 1 mg, intravenous, Once as needed, nausea, vomiting, Starting on Sun06/06/24 at 1028, For 1 dose, Phase I, If nausea/vomiting not relieved by ondansetron within 30 minutes or if ondansetron has been given within the last 6 hours. HYDROmorphone (DILAUDID) injection 0.2 mg 0.2 mg, intravenous, Administer over 2 Minutes, Every 10 min PRN, 1st line for pain, Starting on Sun06/06/24 at 1028, Phase I, Switch to 2nd line analgesic order if pain is uncontrolled or increasing after 2 doses. Notify Anesthesiologist if total PACU dose reaches 2 mg and pain score 5/10 or more., Indications: Pain HYDROmorphone (DILAUDID) injection 0.4 mg 0.4 mg, intravenous, Administer over 2 Minutes, Every 10 min PRN, 2nd line for pain, Starting on Sun06/06/24 at 1028, Phase I, May administer 10 mintes after 2nd dose of 1st line analgesic agent for uncontrolled or increasing pain. Revert to 1st line dose if POSS of 3. Notify Anesthesiologist if total PACU dose reaches 2 mg and pain score 5/10 or more., Indications: Pain iothalamate meglumine (CONRAY) 60 % injection (CANCELED) As needed, Starting on Sun06/06/24 at 1015, Intra-Op 1015 (Given - Provid er: Temo Mcintosh MD) naloxone (NARCAN) 0.4 mg/mL injection 0.04-0.4 mg 0.04-0.4 mg, intravenous, Once as needed, other, excessive sedation/respiratory depression, Starting on Sun06/06/24 at 1028, For 1 dose, Phase I, Dilute 0.4 mg with 9 mL NS (final concentration 0.04 mg/mL). For respiratory depression (respiratory rate less than 6), administer 0.4 mg IVP over 30 seconds. For excessive sedation administer 0.04 mg (1 mL) every 1 minute until desired level of alertness. For IV, administer over 30 seconds., Indications: Opioid Toxicity ondansetron (ZOFRAN) injection 4 mg 4 mg, intravenous, Administer over 2 Minutes, Once as needed, nausea, vomiting, Starting on Sun06/06/24 at 1028, For 1 dose, Phase I, Proceed to haloperidol if ondansetron has been given within the last 6 hours. sodium chloride 0.9% flush 0.5-20 mL 0.5-20 mL, intra-catheter, As needed, line care, Starting on Sun06/06/24 at 0824, Pre-Op, Flush volume based on line type and size. Flush before and after each use. sodium chloride 0.9% irrigation (CANCELED) As needed, Starting on Sun06/06/24 at 0937, Intra-Op 0937 (Given - Provid er: Temo Mcintosh MD - Comment: back table)0950 (Given - Provider: Temo Mcintosh MD - Comment: irrigation for bladder)1014 (Given - Provider: Temo Mcnitosh MD - Comment: irrigation for bladder) documented in this encounter Orders Medications Ordered That Armando ht Not Have Been Administered Count Last Ordered Date First Ordered Date acetaminophen (TYLENOL) tablet 1,000 mg 1 0 06/06/2024 Carrier Fluids for Secondary Infusion - 0.9% Sodium Chloride 1 06/06/2024 ceFAZolin (ANCEF) 2,000 mg/2 0 mL in sterile water (premix) 2,000 mg 1 06/06/2024 cefTRIAXone (ROCEPHIN) 2,000 mg/20 mL in sterile water (premix) 2,000 mg 1 06/06/2024 haloperidol (HALDOL) injection 1 mg 1 06/06 HYDROmorphone (DILAUDID) injection 0.2 mg 1 06/06/2024 HYDROmorphone (DILAUDID) injection 0.4 mg 1 06/06/2024 naloxone (NARCAN) 0.4 mg/mL injection 0.04-0.4 mg 1 06/06/2024 ondansetron (ZOFRAN) injection 4 mg 1 06/06 sodium chloride 0.9% flush 0.5-20 mL 1 12/2023 Discharge Count Last Ordered Date First Orde red Date DISCHARGE PATIENT 1 06/06/2024 documented in this encounter Care Teams Fleet Maintenance Manager Relationship Specialty Start Date End Date No, Physician PCP - General 05/26/24 documented as of this encounter
--- OUTSIDE RECORDS SUMMARY | 2024-11-05 19:17 | XMS_ITS | Encounter Summary ---
Author Organization [facility] Healthcare Address [address] [place] [address] Care Team Providers Care Car Ferry Captain Name Role Phone No, Physician Primary Care Provider [phone] Encounter Details Date Type Department Care Team (Late st Contact Info) Description 06/28/2024 Documentation Internal Medicine Alfredo Santa BS Social History Tobacco Use Types Packs/Day Years Used Date Smoking Tobacco: Former Cigarettes 1 09 05 969 - 1979 Passive Smoke Exposure: Never Smokeless Tobacco: Never Alcohol Use Standard Drinks/Week Comments Yes 14 (1 standard drink = 0.6 oz pu re alcohol) social [facility] Utilities Answer Date Recorded In the past 12 months has [employer], gas, oil, or water [employer] threatened to shut off services in your [...] often do you attend chur ch or methodist services? 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
--- OUTSIDE RECORDS SUMMARY | 2024-11-05 19:17 | XMS_ITS | Encounter Summary ---
Author Organization [facility] Healthcare Address [address] [place] [address] Care Team Providers Care Student Accounts Coordinator Name Role Phone No, Physician Primary Care Provider [phone] Encounter Details Date Type Department Care Team (Late st Contact Info) Description 06/16/2024 Telephone [facility] Radiology [address] [place] [address] Justin Frank RN Social History Tobacco Use Types Packs/Day Years Used Date Smoking Tobacco: Former Cigarettes 1 11 969 1979 Passive Smoke Exposure: Never Smokeless Tobacco: Never Alcohol Use Standard Drinks/Week Comments Yes 14 (1 standard drink = 0.6 oz pu re alcohol) social [facility] Utilities Answer Date Recorded In the past 12 months has [employer], gas, oil, or water [employer] threatened to shut off services in your [...] often do you attend chur ch or yazidi services? Never 12/27/2023 Do you [...] place to sleep or slept in a longterm (including now)? No 12/27/2023 Personal Safety Answer Date Recorded Have you ever been in or are you currently in a harmful physical or emotional relationship or is someone making you feel afraid or unsafe? 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 Not on file Not on file documented as of this encounter Miscellaneous Notes * Telephone Encounter - Justin Frank RN - 06/16/2024 10:10 AM CDT Preprocedure Phone Call Procedure Time Verified: Yes Arrival Time Verified: Yes Procedure Location Verified: Yes Medical History Reviewed: Yes NPO Status Reinforced: Yes Ride and Caregiver Arranged: Yes Ride Caregiver Provider: facility transport Patient Knows to Bring Current Medications: No Patient Knows to Bring CPAP: No Is Patient on Home Ventilator?: No Is Patient on Blood Thinners?: Yes (continue xarelto) documented in this encounter Plan of Treatment Not on file documented as of this encounter Visit Diagnoses Not on filedocumented in this encounter Care Teams Student Accounts Coordinator Relationship Specialty Start Date End Date No, Physician PCP - General 05/26/24 documented as of this encounter
--- OUTSIDE RECORDS SUMMARY | 2024-11-05 19:17 | XMS_ITS | Encounter Summary ---
Author Organization [facility] Address [address] [place] [address] Phone Care Team Providers Care Supervisor Dairy Sanitation Name Role Phone No, Physician Primary Care Provider [phone] Encounter Details Date Type Department Care Team (Late st Contact Info) Description 06/27/2024 Telephone [facility] Surgery [address] [place] [address] Nora Collins Social History Tobacco Use Types Packs/Day Years Used Date Smoking Tobacco: Former Cigarettes 1 11 969 - 1979 Passive Smoke Exposure: Never Smokeless Tobacco: Never Alcohol Use Standard Drinks/Week Comments Yes 14 (1 standard drink = 0.6 oz pu re alcohol) social C Utilities Answer Date Recorded In the past 12 months has [employer], gas, oil, or water [employer] threatened to shut off services in your [...] often do you attend chur ch or jainism services? 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 She statesshe is needing to know how often patient's catheter needs to be changed. Please call Carey at [phone] Patient Provider: Arnaldo Medical/Surgical Information: Outcome/Plan: documented in this encounter Plan of Treatment Not on file documented as of this encounter Visit Diagnoses Not on filedocumented in this encounter Care Teams Supervisor Dairy Sanitation Relationship Specialty Start Date End Date No, Physician PCP - General 05/26/24 documented as of this encounter
--- OUTSIDE RECORDS SUMMARY | 2024-11-05 19:17 | XMS_ITS | Encounter Summary ---
Author Organization [facility] Healthcare Address [address] [place] [address] Care Team Providers Care Professor Of Food Biochemistry Name Role Phone No, Physician Primary Care Provider [phone] Reason for Referral * Diagnostic Imaging (Routine) - Closed Specialty Diagnoses / Procedures Referred By Contac t Referred To Contact Diagnoses S/P laminectomy with spinal fusion Procedures XR Spine Lumbar 2 or 3 Views Marcial Vu Jr., MD [address] [place] [address] Phone: tel: fax: [facility] Radiology [address] [place] [phone] Phone: tel: Referral ID Status Reason Start Date Expiration Date Visits Re quested Visits Authorized [id number] Closed 06/20/2024 07/20/2025 1 1 * Diagnostic Imaging (Routine) - Closed Specialty Diagnoses / Procedures Referred By Contac t Referred To Contact Diagnoses S/P laminectomy with spinal fusion Procedures XR Spine Thoracic 2 Views Marcial Vu Jr., MD [address], [place] [address] Phone: tel: fax: [facility] Radiology [address] [place] [phone] Phone: tel: Referral ID Status Reason Start Date Expiration Date Visits Re quested Visits Authorized [id number] Closed 06/20/2024 07/20/2025 1 1 Reason for Visit * Diagnostic Imaging (Routine) - Closed Specialty Diagnoses / Procedures Referred By Contac t Referred To Contact Diagnoses S/P laminectomy with spinal fusion Procedures XR Spine Thoracic 2 Views Marcial Vu Jr., MD [address] [facility] [address] [place] [address] Phone: tel: fax: [facility] Radiology [address] [place] [address] [address] [place] [address] Phone: tel: Referral ID Status Reason Start Date Expiration Date Visits Re quested Visits Authorized [id number] Closed 06/20/2024 07/20/2025 1 1 Encounter Details Date Type Department Care Team (Latest Contact Info) Description 06/26/2024 9:30 AM CDT - 06/26/2024 11:59 PM CDT Hospital Encounter [facility] Radiology [address] [place] [address] [address] [facility] [place] [address] S/P laminectomy with spinal fusion Discharge Disposition: Discharge to home or self care Social History Tobacco Use Types Packs/Day Years Used Date Smoking Tobacco: Former Cigarettes 1 11 9 - 1979 Passive Smoke Exposure: Never Smokeless Tobacco: Never Alcohol Use Standard Drinks/Week Comments Yes 14 (1 standard drink = 0.6 oz pu re alcohol) social [facility] Utilities Answer Date Recorded In the past 12 months has [employer], gas, oil, or water [employer] threatened to shut off services in your [...] week 12/27/2023 How often do you attend [facility] or confucianism services? 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 Not on file [...] ound healing Take 1 tablet by mouth trouble tracer before breakfast ondansetron ODT (ZOFRAN-ODT) 4 mg [...] 1 tablet (20 mEq total) by mouth trouble tracer before breakfast 4 senna-docusate (PERICOLACE) 8.6-50 mg Take 1 tablet by mouth nightly 4 tamsulosin (FLOMAX) 0.4 mg extended release capsule Take 1 capsule (0.4 mg total) by mouth daily 30 capsule 4 02/27/20 25 Xarelto 20 mg tabletIndications:D [...] Name Priority Date/Time Associated Diagnosis Comments XR SPINE LUMBAR 2 OR 3 VIEWS Schedule Routine, Read Routine (OP Routine) 06/26/2024 10:03 AM CDT S/P laminectomy with spinal fusion XR SPINE THORACIC 2 VIEWS Schedule Routine, Read Routine (OP Routine) 06/26/2024 10:03 AM CDT S/P laminectomy with spinal fusion documented in this encounter Results * XR Spine Lumbar 2 or 3 [...] PROCEDURES F inal Result * XR Spine Thoracic 2 Views (06/26/2024 [...] MD IM XR PROCEDURES F inal Result documented in this encounter Visit Diagnoses Diagnosis S/P laminectomy with spinal fusion Arthrodesis status documented in this encounter Care Teams Professor Of Food Biochemistry Relationship Specialty Start Date End Date No, Physician PCP - General 05/26/24 documented as of this encounter
--- OUTSIDE RECORDS SUMMARY | 2024-11-05 19:17 | XMS_ITS | Encounter Summary ---
Author Organization [facility] Address [address] [place] [address] Phone Care Team Providers Care Box Toe Cutter Name Role Phone No, Physician Primary Care Provider [phone] Encounter Details Date Type Department Care Team (Late st Contact Info) Description 07/14/2024 9:30 AM CDT Office Visit [facility] Radiology, Interventional Radiology [address] [place] [id number] Milan Crum MD [address] [facility] [place] [address] Bilateral lower extremity edema (Primary Dx) Social History Tobacco Use Types Packs/Day Years Used Date Smoking Tobacco: Former Cigarettes 1 11 969 - 1979 Passive Smoke Exposure: Never Smokeless Tobacco: Never Alcohol Use Standard Drinks/Week Comments Yes 14 (1 standard drink = 0.6 oz pu re alcohol) social [facility] Utilities Answer Date Recorded In the past 12 months has [employer], gas, oil, or water [employer] threatened to shut off services in your [...] week 12/27/2023 How often do you attend [facility] or confucianism services? 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 Interventional Radiology Outpatient Note Reason for Visit: lower extremity swelling, IVC filter removal follow up Requesting Provider: Katharine Manzo* HPI: 74 year old male with DVT and [...] cancer Pneumonia Pulmonary embolism (HCC) Seasonal allergies PSH: Past Surgical History: Procedure Laterality Date CYSTOSCOPY [...] tear VASECTOMY over 30 years ago Social Hx: reports that he quit smoking about 44 years ago. His smoking use included cigarettes. Hestarted smoking about 55 years ago. He has a 11 pack-year smoking history. He has never been exposed to tobacco smoke. He has never used smokeless tobacco. He reports current drug use. Frequency: 2.00 times per week. Drug: Medical marijuana. Patient reports consuming alcoholic drinks , with a dailyconsumption of drinks. Patient denies daily consumption of 6 or more alcoholic drinks at one occasion. Family Hx: family history includes Alcohol abuse in his father; Cancer in his father and another family member; Heart disease in his mother and another family member; Lung disease in his mother. Allergies: Patient has no known allergies. Meds: Current Outpatient Medications: acetaminophen (TYLENOL) 500 [...] extended release capsule Xarelto 20 mg tablet Vitals: Vitals Ht 172.7 cm (5' 8 ) Wt 83.9 kg (185 lb) BMI 28.13 kg/m?? Physical Exam: General: alert and conversant in NAD Chest: non-labored breathing on room air Cardiac: regular rate Extremities: Pitting edema to the level of the mid thigh Psych: appropriate mood and affect Data Review: I have reviewed the patient???s past medical history (including surgical, family and social histories), medications, and allergies in the electronic medical record. The following notes were reviewed in detail: Orthopedic surgery note 06/26/2024 The following laboratory data was reviewed: Hematology Lab History Latest Ref Rng & [...] 0.8 - 3.3 K/cumm 1.8 1.6 1.7 I have independently reviewed the following imaging CT abdomen and pelvis 07/02/2024 and my interpretation is as follows: Narrowing of the distal inferior vena cava. 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 Patient has persistent severe lower extremity swelling from the feet to the thigh with CT scan showing narrowing of the distal inferior vena cava, likelyrelated to previous thrombus. - will evaluate lower extremity venous anatomy with US venous duplex bilaterally prior to procedure - plan for bilateral lower extremity venogram with possible venoplasty and stenting under General Anesthesia - will bridge patient to procedure with lovenox 5 days prior Steven Sanford MD Cosigned by Milan Crum MD at 07/14/2024 4:21 PM CDT Associated attestation - Milan Crum MD - 07/14/2024 4:21 PM CDT I have seen and examined the patient on 07/14/24. I agree with the findings and plan of care as documented in the resident's/fellow's note.. Milan Crum MD gynecologist and Surgery Vascular and Interventional Radiology Section [facility] of Radiology [facility] in [place] documented in this encounter Plan of Treatment Not on file documented as of this encounter Visit Diagnoses Diagnosis Bilateral lower extremity edema- Primary documented in this encounter Care Teams Box Toe Cutter Relationship Specialty Start Date End Date No, Physician PCP - General 05/26/24 documented as of this encounter
--- OUTSIDE RECORDS SUMMARY | 2024-11-05 19:18 | XMS_ITS | Encounter Summary ---
Author Organization [facility] Address [address] [place] [address] Care Team Providers Care Electrician Ship Name Role Phone Rl Medina DO Primary Care Provider Encounter Details Date Type Department Care Team (Late st Contact Info) Description 05/06/2024 Telephone Radiology [address] [place] [address] Macy Fernando RN Social History Tobacco Use Types Packs/Day Years Used Date Smoking Tobacco: Former Cigarettes 1 11 1 969 - 1979 Passive Smoke Exposure: Never Smokeless Tobacco: Never Alcohol Use Standard Drinks/Week Comments Yes 14 (1 standard drink = 0.6 oz pu re alcohol) social [facility] Utilities Answer Date Recorded In the past 12 months has [employer] electric, gas, oil, or water company threatened [...] often do you attend chur ch or sabianism services? Never 12/27/2023 Do you belong to [...] often do you have a drink containing alc ohol? Monthly or less 02/14/2024 Q2: How many drinks containi ng alcohol do you have on a typical day when you are drinking? 1 or 2 02/14/2024 Q3: How often do you have si x or more drinks on one occasion? Never 02/14/2024 Overall Financial Resource Strain (CARDIA) Answe r [...] making you feel afraid or unsafe? 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 Yes Appt info letter sent: Yes ALLERGIES: No Known Allergies Infection Flag: Does the patient have any of the following medical conditions? Sedation: Previous problems with anesthesia or sedation? No Cardiovascular/Respiratory: None Lung: None Renal/Liver/GI: None Bleeding/Clotting: Blood clot within previous year Most recent coag results: PLT= 213 Medications: * * * For blood thinners/antiplatelet agents, REVIEW MED REC AND LIST THEM APPROPRIATE * * * Blood thinners: Rivaroxaban (Xarelto) Patient & Procedure Risk Assessment Proceed with scheduling documented in this encounter Plan of Treatment Not on file documented as of this encounter Visit Diagnoses Not on filedocumented in this encounter Care Teams Electrician Ship Relationship Specialty Start Date End Date Rl Medina DO [address] [place] [address] PCP - General 08/09/17 05/25/24 documented as of this encounter
--- OUTSIDE RECORDS SUMMARY | 2024-11-05 19:18 | XMS_ITS | Encounter Summary ---
Author Organization [facility] Address [address] [place] [address] Phone Care Team Providers Care Biotechnician Name Role Phone Rl Medina DO Primary Care Provider Reason for Referral * Diagnostic Imaging (Routine) - Closed Specialty Diagnoses / Procedures Referred By Manisha gale Referred To Contact Radiology Diagnoses Lower extremity edema S/P insertion of IVC (inferior vena caval) filter History of pulmonary embolism Procedures IR Remove Vena Cava Filter IR Remove Vena Cava Filter IR Remove Vena Cava Filter Marcial Vu Jr., MD [address] [place] [address] Phone: tel: fax: [address] [address] Referral ID Status Reason Start Date Expiration Date Visits Re quested Visits Authorized [id number] Closed 04/08/2024 05/08/2025 1 1 Encounter Details Date Type Department Care Team (Late st Contact Info) Description 04/07/2024 Telephone [facility] Orthopaedic Surgery [address] [place] [address] Medical Office Building [address] [place] [address] Marcial Vu Jr., MD [email or web address] [address] Social History Tobacco Use Types Packs/Day Years Used Date Smoking Tobacco: Former Cigarettes 1 09 05 969 - 1979 Passive Smoke Exposure: Never Smokeless Tobacco: Never Alcohol Use Standard Drinks/Week Comments Yes 14 (1 standard drink = 0.6 oz pu re alcohol) social [facility] Utilities Answer Date Recorded In the past [...] often do you attend chur ch or druze services? 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 Albarado placed pt's IVC filter on 11/09/23 while pt was admitted at [facility]. Pt has no follow up scheduled for evaluation and further treatment for this. Spoke with MARIAMA Cavazos liquor department manager, who recommended to place order for IR remove vena cava filter and then pt will be contacted by their dept to schedule appt per referral list in [facility]. Macy stated that order should be placed even if referral is solely for IVC filter evaluation (and not necessarily removal). Referral placed. Contacted pt's , Val, and updated her on status of IVR referral. Val voiced understanding. Will follow up later this week to check status of referral. * Telephone Encounter - Kasey Mari, - 04/07/2024 4:19 PM CDT Val called me about the referral Dr. Vu sent to Dr. Barron regarding Hira's bilateral lower extremity swelling. They were told that Dr. Barron does not see patient's for this issue. I told her that we had been communicating with vascular surgery and were trying to figure out the appropriate referral for Hira. I told her that we would ask Dr. Vu about this after his clinic today. We willcall Val tomorrow to follow up. She was in agreement with this plan. documented in this encounter Plan of Treatment Not on file documented as of this encounter Results * IR Remove Vena [...] was obtained. Prior to beginning the procedure, [place] Protocol was performed to confirm the patient's [...] guidance and a guidewire passed centrally. A animal shelter supervisor fluoroscopic image was obtained. A 6 Armenian vascular sheath was inserted into the right [...] was obtained. Prior to beginning the procedure, [place] Protocol was performed to confirm the patient's [...] guidance and a guidewire passed centrally. A animal shelter supervisor fluoroscopic image was obtained. A 6 Armenian vascular sheath was inserted into the right [...] Milan Crum M.D. Marcial Vu Jr., MD IM IR PROCEDURES F inal Result documented in this encounter Visit Diagnoses Diagnosis History of pulmonary embolism- Primary Personal history of venous thrombosis and embolism Lower extremity edema Edema S/P insertion of IVC (inferior vena caval) filter Other postprocedural status Lower extremity edema Edema S/P insertion of IVC (inferior vena caval) filter Other postprocedural status History of pulmonary embolism Personal history of venous thrombosis and embolism documented in this encounter Care Teams Biotechnician Relationship Specialty Start Date End Date Rl Medina DO [address] [place] [address] PCP - General 08/09/17 05/25/24 documented as of this encounter
--- OUTSIDE RECORDS SUMMARY | 2024-11-05 19:18 | XMS_ITS | Encounter Summary ---
Author Organization [facility] Address [address] [place] [address] Phone Care Team Providers Care Quality Assurance Specialist Name Role Phone Rl Medina DO Primary Care Provider Reason for Visit * Consultation (Routine) - Closed Specialty Diagnoses / Procedures Referred By Manisha gale Referred To Contact Hematology Diagnoses Hospital discharge follow-up Rae Weller NP [address] [place] [address] Phone: tel: fax: Katharine Hampton MD [address] [place] [address] Phone: tel: fax: Referral ID Status Reason Start Date Expiration Date V isits Requested Visits Authorized [id number] Closed Specialty Services Required 11/16/2023 11/04/2024 99 99 Encounter Details Date Type Department Care Team (Late st Contact Info) Description 04/11/2024 10:00 AM CDT Lab [facility] Oncology [facility] 7th [place] [address] [place] [phone] Social History Tobacco Use Types Packs/Day Years [...] any clubs o r organizations such as sabianist groups, unions, fraternal or athletic groups, or [...] on file 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 Gender Identity Not on file Sexual Orientation Not on file 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
--- OUTSIDE RECORDS SUMMARY | 2024-11-05 19:18 | XMS_ITS | Encounter Summary ---
Author Organization [facility] Address [address] [place] [address] Phone Care Team Providers Care Respiratory Practitioner Name Role Phone Rl Medina DO Primary Care Provider Reason for Visit * Diagnostic Imaging (Routine) - Pending Review Specialty Diagnoses / Procedures Referred By Contac t Referred To Contact Diagnoses Pulmonary embolism, unspecified chronicity, unspecified pulmonary embolism type, unspecified whether acute cor pulmonale present (HCC) Procedures US Vein Duplex Lower Extremity Bilateral Complete Tigre Way MD [address] [place] [address] Phone: tel: fax: [facility] (All Locations) Referral ID Status Reason Start Date Expiration Date V isits Requested Visits Authorized [id number] Pending Review 02/13/2024 03/14/2025 99 99 Encounter Details Date Type Department Care Team (Latest Contact Info) Description 04/11/2024 11:00 AM CDT Ancillary Procedure [facility] Vascular Lab at the [facility] [address] [place] [address] Advanced Medicine [address]th [place] [address] [place] [address] Pulmonary embolism, unspecified chronicity, unspecified pulmonary embolism type, unspecified whether acute cor pulmonale present (HCC) Social History Tobacco Use Types Packs/Day Years Used Date Smoking Tobacco: Former Cigarettes 1 11 1 969 - 1979 Passive Smoke Exposure: Never Smokeless Tobacco: Never Alcohol Use Standard Drinks/Week Comments Yes 14 (1 standard drink = 0.6 oz pu re alcohol) social [facility] Utilities Answer Date Recorded In [...] on file 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 Gender Identity Not on file Sexual Orientation Not on file 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 Not on file Not on file documented as of this encounter Plan of Treatment Not on file documented as of this encounter Procedures Procedure Name Priority Date/Time Associated Diagnosis Comments US VEIN DUPLEX LOWER EXTREMITY BILATERAL COMPLETE Schedule Routine, Read Routine (OP Routine) 04/11/2024 10:58 AM CDT Pulmonary embolism, unspecified chronicity, unspecified pulmonary embolism type, unspecified whether acute cor pulmonale present (HCC) documented in this encounter Results * US Vein Duplex Lower Extremity Bilateral Complete (04/11/2024 10:58 AM CDT) Anatomical Region Laterality Modality Vascular Bilateral Ultrasound 04/11/2024 10:3 7 AM CDT Narrative 04/11/2024 12:48 PM CDT [facility] - Department of Vascular Surgery, Vascular Laboratory [address] [place] [address] Lower Extremity Venous Ultrasound Report Patient Name: HIRA EVANS : 1950 (73y 9m) Study Date: 04/11/2024 10:37:34 AM Gender: M Tech: TT Location: [facility] Ref Provider: TIGRE WAY ?Quality: Adequate Order Provider: TIGRE WAY PROCEDURES: Vascular Report: Venous Duplex imaging was performed bilaterally in the lower extremities. The common femoral, femoral, popliteal, posterior tibial, peroneal veins were evaluated for patency, spontaneity and phasicity with Doppler, compression and augmentation maneuvers. Great saphenous vein proximal at the junction was evaluated with compression maneuvers. INDICATIONS: Pulmonary embolism, unspecified chronicity, unspecified pulmonary embolism type, unspecified whether acute cor pulmonale present - FINDINGS: Performing Director Medical Writing: Tremaine Albright RVT. Bilateral: Venous Doppler signals in the bilateral lower extremity are within normal limits for spontaneity and phasicity and respond normally to augmentation maneuvers. No evidence of deep vein thrombus by duplex, proximal to the calf. CONCLUSIONS: 1. There is no evidence of acute deep vein thrombosis in the lower extremities bilaterally. Noninvasive venous studies cannot rule out isolated calf vein obstruction. HISTORY: Previous DVT. PREVIOUS STUDIES: Previous study performed on 11-30-23 was a positive exam. DISCLAIMER: The study images and the final [...] Electronically Signed By: Scott Martinez MD FACS 2024-04-11 12:48:17 CDT Procedure Note Scott Martinez MD - 04/11/2024 [facility] - Department of Vascular Surgery,Vascular Laboratory [address] [place] [address] Lower Extremity Venous Ultrasound Report Patient Name: HIRA EVNAS : 1950 (73y 9m) Study Date: 04/11/2024 10:37:34 AM Gender: M Tech: TT Location: [facility] Ref Provider: TIGRE WAY Quality: Adequate Order Provider: TIGRE WAY PROCEDURES: Vascular Report: Venous Duplex imaging was performed bilaterally in the lower extremities.The common femoral, femoral, popliteal, posterior tibial, peroneal veins wereevaluated for patency, spontaneity and phasicity with Doppler, compression and augmentationmaneuvers. Great saphenous vein proximal at the junction was evaluated with compressionmaneuvers. INDICATIONS: Pulmonary embolism, unspecified chronicity, unspecified pulmonary embolismtype, unspecified whether acute cor pulmonale present - FINDINGS: Performing Director Medical Writing: Tremaine Albright RVT. Bilateral: Venous Doppler signals in the bilateral lower extremity are within normallimits for spontaneity and phasicity and respond normally to augmentation maneuvers.No evidence of deep vein thrombus by duplex, proximal to the calf. CONCLUSIONS: 1. There is no evidence of acute deep vein thrombosis in the lowerextremities bilaterally. Noninvasive venous studies cannot rule out isolated calf veinobstruction. HISTORY: Previous DVT. PREVIOUS STUDIES: Previous study performed on 11-30-23 was a positive exam. DISCLAIMER: The study images and the final [...] above. Electronically Signed By: Scott Martinez MD [facility] 2024-04-11 12:48:[address] [facility] PROCEDURES Fi nal Result documented in this encounter Visit Diagnoses Diagnosis Pulmonary embolism, unspecified chronicity, unspecified pulmonary embolism type, unspecified whether acute cor pulmonale present (HCC) documented in this encounter Care Teams Respiratory Practitioner Relationship Specialty Start Date End Date Rl Medina DO [address] [place] [address] PCP - General 08/09/17 05/25/24 documented as of this encounter
--- OUTSIDE RECORDS SUMMARY | 2024-11-05 19:18 | XMS_ITS | Encounter Summary ---
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 Gender Identity Not on file Sexual Orientation Not on file 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 Not on file Not on file documented as of this encounter Plan of Treatment Not on file documented as of this encounter Results * (ABNORMAL) Comprehensive metabolic panel (06/19/2024 8:07 AM CDT) Sodium 143 135 - 145 mmol/L Potassium, pl 3.9 3.3 - 4.9 mmol/L [facility] Chloride 105 97 - 110 mmol/L [facility] CO2 32 22 - 32 mmol/L [facility] Anion gap 6 2 - 15 mmol/L [facility] BUN 18 6 - 25 mg/dL [facility] Creatinine 0.72(L) 0.80 - 1.30 mg/dL [facility] Glucose 103 70 - 199 mg/dL [facility] 2022. Calcium 9.7 8.5 - 10.3 mg/dL [facility] Bilirubin, total 0.7 0.1 - 1.2 mg/dL [facility] Protein, pl 7.8 6.5 - 8.5 g/dL [facility] Albumin 3.9 3.5 - 5.0 g/dL [facility] Alk phos 96 40 - 130 Units/L [facility] ALT 16 7 - 55 Units/L [facility] AST 26 10 - 50 Units/L [facility] Blood 06/19/2024 8:07 AM CDT 06/19/2024 8:36 AM CDT us Milan Crum MD LAB BLOOD ORDERABLES Final Result [facility] [place] [address] * (ABNORMAL) CBC with auto differential (06/19/2024 [...] Crum MD LAB BLOOD ORDERABLES Final Result Performing Organization Address City/State/[facility] [place] Co de Phone Number [facility] [place] [address] documented in this encounter Visit Diagnoses Diagnosis Presence of IVC filter- Primary documented in this encounter Care Teams Advertising Writer Relationship Specialty Start Date End Date No, Physician PCP - General 05/26/24 documented as of this encounter
--- OUTSIDE RECORDS SUMMARY | 2024-11-05 19:18 | XMS_ITS | Encounter Summary ---
Author Organization [facility] Address [address] [place] [address] Phone Care Team Providers Care General Lot Attendant Name Role Phone Rl Medina DO Primary Care Provider Reason for Referral * Diagnostic Imaging (Routine) - Pending Review Specialty Diagnoses / Procedures Referred By Manisha gale Referred To Contact Diagnoses Pulmonary embolism, unspecified chronicity, unspecified pulmonary embolism type, unspecified whether acute cor pulmonale present (HCC) Procedures US Vein Duplex Lower Extremity Bilateral Complete Katharine Way MD [address] [place] [address] Phone: tel: fax: [facility] (All Locations) Referral ID Status Reason Start Date Expiration Date V isits Requested Visits Authorized [id number] Pending Review 02/13/2024 03/14/2025 99 99 Reason for Visit * Consultation (Routine) - Closed Specialty Diagnoses / Procedures Referred By Manisha gale Referred To Contact Hematology Diagnoses Hospital discharge follow-up Rae Weller NP [address] [place] [address] Phone: tel: fax: Katharine Way MD [address] [place] [address] Phone: tel: fax: Referral ID Status Reason Start Date Expiration Date V isits Requested Visits Authorized [id number] Closed Specialty Services Required 11/16/2023 11/04/2024 99 99 Encounter Details Date Type Department Care Team (Late st Contact Info) Description 04/11/2024 9:00 AM CDT Office Visit [facility] Hematology [address] [facility] 7th [place] [address] [place] [address] MD [address] [place] [address] Pulmonary embolism, unspecified chronicity, unspecified pulmonary embolism type, unspecified whether acute cor pulmonale present (HCC) (Primary Dx) Social History Tobacco Use Types Packs/Day Years Used Date Smoking Tobacco: Former Cigarettes 1 11 969 - 1979 Passive Smoke Exposure: Never Smokeless Tobacco: Never Alcohol Use Standard Drinks/Week Comments Yes 14 (1 standard drink = 0.6 oz pu re alcohol) social C Utilities Answer Date Recorded In the past 12 months has [employer] gas, oil, or water company threatened to [...] often do you attend chur ch or amish services? 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 Not on file Not on file Not on file documented as of this encounter Last Filed Vital Signs Vital Sign Reading Time Taken Comments Blood Pressure 124/79 04/11/2024 9:12 AM CDT Pulse 57 04/11/2024 9:12 AM CDT Temperature 36.6 ??C (97.9 ??F) 04/11/2024 9:12 AM CD T Respiratory Rate 18 04/11/2024 9:12 AM CDT Oxygen Saturation 99% 04/11/2024 9:12 AM CDT Inhaled Oxygen Concentration - - Weight 81.6 kg (180 lb) 04/11/2024 9:12 AM CDT Height - - Body Mass Index 27.37 02/14/2024 10:00 AM CDT documented in this encounter Progress Notes * Katharine Way MD - 04/11/2024 9:00 AM CDT REFERRING MD: Rae Weller NP [address] [place] [address] PCP: Rl Medina DO PATIENT NAME: Hira Evans : 1950 DATE OF SERVICE: 04/11/2024 REASON FOR CONSULT: Surgically provoked VTE HISTORY OF PRESENT ILLNESS: Hira Evans is a 73 y.o. male who presents today for consultation regarding management of anticoagulant therapy for surgically provoked venous thromboembolism. His history began with lower extremity weakness and radicular pain in late 2022 at which time he was found to have severe lumbar foraminal stenosis causing compression of the exiting left L4 nerve root. He was taken to the operating room October 23, 2023 for posterior lumbar laminectomy and spinalfusion. Postoperatively, he suffered PE arrest on October 23, 2023. The etiology of his arrest was found to be secondary to bilateral pulmonary emboli. CT head 10/23/2023: Small subdural hematoma CT PE protocol 10/23/2023: Acute bilateral pulmonary emboli involving the distal right and left main pulmonary arteries extending into all bilateral lobar and multiple bilateral segmental pulmonary arteries. No CT evidence of right heart strain. He did require 2 minutes of CPR and 1 dose of epinephrine after which he achieved ROSC. He was initiated on a heparin drip October 25, 2023. He [place]. Per his , he was ambulating at home and improving. However, he subsequently developed worsening pain and lower extremity weakness. On arrival, he was found to have an epidural hematoma at the level of T5-L5 leading to significant spinal cord injury. He was taken emergently to the operating room November 08, 2023. Venous duplex ultrasound November 09, 2023: No evidence of acute deep vein thrombosis in the bilateral lower extremities. Given his epidural hematoma, the safety of anticoagulant therapy was re- evaluated and discontinued.He had an IVC filter placed November 09, 2023. Did have a CT PE chest November 09, 2023 which did show decreasing burden of pulmonary emboli. He was eventually discharged neuro rehab given his spinal cord injury with inability to ambulate. At the time of discharge, he was not initiated on anticoagulanttherapy. Plans were for re-evaluation at a later date. However, while at rehab, he developed worsening lower extremity swelling. Venous duplex ultrasound November 30, 2023: Right lower extremity with acute deep vein thrombosis involving the right common femoral vein, profunda femoral vein, femoral vein, popliteal vein, posterior tibial veins and peroneal veins. Left lower extremity with acute deep vein thrombosis involving the common femoral vein, profunda femoral vein, femoral vein, popliteal vein, posterior tibial veins and peroneal veins. Given the above, he was readmitted to [facility] and initiated on anticoagulant therapy. He was started on anticoagulant therapy and eventually discharged on enoxaparin 80 mg subcutaneously every 12 hours. The family states that he was maintained on enoxaparin until admitted to his current rehabilitation facility, [facility]. Shortly after admission, the decision was made to discontinue his anticoagulant therapy. However, with persistent swelling he eventually had a repeat venous duplex ultrasound February 07, 2024: Both common femoral, superficial femoral, popliteal, peroneal and left posterior tibial veins are distended consistent with acute deep vein thrombosis. Given the above, he was resumed on anticoagulant therapy. He is currently on rivaroxaban 20 mg daily. He did receive a loading dose at the initiation of anticoagulation. Per the patient and , he has had no signs or symptoms of anticoagulant related bleeding since initiation of therapy. He has had no changes in lower extremity function following his spinal cord injury in November 2023.He is able to feel in his lower extremities, but he is unable to ambulate. His IVC filter remains in place. Currently: The patient denies noted issues with bleeding including, excessive ecchymoses, petechiae, melena, hematochezia, bright red blood per rectum, hematemesis, hematuria, epistaxis, or other types of bleeding. He has persistent bilateral lower extremity swelling that is overall stable. Past surgical history: Total knee replacement surgery September 2019, states that he did not receive thromboprophylaxis afterwards, no complications Total knee replacement October 2021, states he did not receive thromboprophylaxis after, no complications Prostatectomy around 15 years ago, no complications Past medical history: As above REVIEW OF SYSTEMS: Review of Systems Constitutional: Negative for fatigue and unexpected weight change. HENT: Negative. Eyes: Negative. Respiratory: Negative for cough, chest tightness and shortness of breath. Cardiovascular: Positive for leg swelling. Negative for chest pain and palpitations. Gastrointestinal: Negative for abdominal pain, anal bleeding, blood in stool, constipation, diarrhea and nausea. Endocrine: Negative. Genitourinary: Negative for hematuria. Musculoskeletal: Negative. Skin: Negative for color change and rash. Allergic/Immunologic: Negative. Neurological: Positive for weakness. Hemiparalysis post spinal cord injury Hematological: Negative for adenopathy. Does not bruise/bleed easily. Psychiatric/Behavioral: Negative. Past Medical History: Diagnosis Date Allergic rhinitis [...] date: 1968 Quit date: 1979 Years since quittin.4 Passive exposure: Never Smokeless tobacco: Never Substance and Sexual Activity Drug use: Not Currently Frequency: 2.0 times per week Types: Medical marijuana Sexual activity: Yes Partners: Female control/protection: Vasectomy Alcohol Use: Not At Risk (02/14/2024) AUDIT-C Frequency of Alcohol Consumption: Monthly or less Average Number of Drinks: 1 or 2 Frequency of Binge Drinking: Never Recent Concern: Alcohol Use - Alcohol Misuse (12/25/2023) AUDIT-C Frequency of Alcohol Consumption: 4 or more times a week Average Number of Drinks: 1 or 2 Frequency of Binge Drinking: Less than monthly No Known Allergies Current Outpatient Medications Medication Sig Dispense Refill acetaminophen (TYLENOL) 500 mg tablet Take 1 tablet (500 mg total) by mouth every 6 (six) hours as needed for pain 30 tablet 0 acyclovir (ZOVIRAX) 400 mg tablet Take 1 tablet (400 mg total) by mouth 2 (two) times a day zqpneydw-kfrtolwqr-dapjxoa HMB 7-7-1.5 gram powder in packet Take 1 Dose by mouth 2 (two) times a day Scout ascorbic acid (VITAMIN C ORAL) Take 1 tablet by mouth 2 (two) times a day bisacodyL (DULCOLAX) 10 mg suppository Insert 1 suppository (10 mg total) into the rectum daily as needed for constipation cetirizine (ZyrTEC) 10 mg tablet 0 cholecalciferol (VITAMIN D-3) 5,000 unit capsule Take 1 capsule (5,000 Units total) by mouth every morning cyclobenzaprine (FLEXERIL) 5 mg tablet Take 1 tablet (5 mg total) by mouth 3 (three) times a day asneeded for muscle spasms eszopiclone (LUNESTA) 1 mg tablet furosemide (LASIX) 40 mg tablet Take 1 tablet (40 mg total) by mouth 2 (two) times a day (Patient taking differently: Take 1 tablet (40 mg total) by mouth 3 (three) times a week) gabapentin (NEURONTIN) 600 mg tablet Take 1 tablet (600 mg total) by mouth 3 (three) times a day (Patient taking differently: Take 1 tablet (600 mg total) by mouth as needed) hydroCHLOROthiazide (HYDRODIURIL) 12.5 mg tablet levETIRAcetam (KEPPRA) 1,000 mg tablet Take 1 tablet (1,000 mg total) by mouth 2 (two) times a day (Patient taking differently: Take 1 tablet (1,000 mg total) by mouth 2 (two) times a day) metOLazone (ZAROXOLYN) 5 mg tablet Take 1 tablet (5 mg total) by mouth daily miconazole 2 % powder Apply topically 2 (two) times a day (Patient taking differently: Apply topically 2 (two) times a day) Mounjaro 10 mg/0.5 mL pen injector multivitamin tablet Take 1 tablet by mouth convention services manager before breakfast nitrofurantoin monohydrate (MACROBID) 100 mg capsule Take 1 capsule (100 mg total) by mouth 2 (two)times a day ondansetron ODT (ZOFRAN-ODT) 4 mg disintegrating tablet [...] 1 tablet (20 mEq total) by mouth convention services manager before breakfast senna-docusate (PERICOLACE) 8.6-50 mg Take 1 tablet by mouth nightly (Patient taking differently: Take 1 tablet by mouth convention services manager before breakfast) tamsulosin (FLOMAX) 0.4 mg extended release capsule Take 1 capsule (0.4 mg total) by mouth daily 30capsule 11 Xarelto 20 mg tablet Take 1 tablet (20 mg total) by mouth daily with breakfast tamsulosin (FLOMAX) 0.4 mg extended release capsule Take 2 capsules (0.8 mg total) by mouth daily with dinner (Patient taking differently: Take 2 capsules (0.8 mg total) by mouth nightly 2 tablets) No current facility-administered medications for this visit. PHYSICAL EXAMINATION: BP 124/79 (BP Location: Left arm) Pulse 57 Temp 36.6 ??C (97.9 ??F) (Transdermal) Resp 18 Wt 81.6 kg (180 lb) SpO2 99% BMI 27.37 kg/m?? Symptomatic; in bed <50% of the day Physical Exam Vitals reviewed. Constitutional: General: He is not in acute distress. Appearance: Normal appearance. He is well-developed. HENT: Head: Normocephalic and atraumatic. Eyes: General: No scleral icterus. Conjunctiva/sclera: Conjunctivae normal. Cardiovascular: Rate and Rhythm: Normal rate. Pulmonary: Effort: Pulmonary effort is normal. No respiratory distress. Abdominal: General: Abdomen is flat. There is no distension. Musculoskeletal: General: Normal range of motion. Cervical back: Normal range of motion. Right lower leg: Edema present. Left lower leg: Edema present. Skin: Coloration: Skin is not jaundiced. Findings: No bruising, ecchymosis, erythema, lesion, petechiae or rash. Neurological: Mental Status: He is alert and oriented to person, place, and time. Comments: Presents in a wheelchair with a Pia lift pad syndrome. Unable to move his lower extremities. Psychiatric: Mood and Affect: Mood normal. Thought Content: Thought content normal. RESULTS: Lab Results Component Value Date WBC 5.8 04/11/2024 HGB 12.0 (L) 04/11/2024 HCT 35.8 (L) 04/11/2024 MCV 90.5 04/11/2024 LABPLAT 213 04/11/2024 Chemistry Lab Results Component Value Date SODIUM 139 04/11/2024 POTASSIUM 3.6 04/11/2024 CHLORIDE 101 04/11/2024 CO2 30 04/11/2024 ANIONGAP 8 04/11/2024 BUNSER 21 04/11/2024 CREATININE 0.63 (L) 04/11/2024 GLUCOSE 103 04/11/2024 CALCIUM 9.6 04/11/2024 BILITOT 0.3 04/11/2024 ALBUMIN 4.1 04/11/2024 GFRNAA >90 04/11/2024 ALKPHOS 93 04/11/2024 AST 14 04/11/2024 ALT 13 04/11/2024 PHOS 3.1 12/27/2023 MAGNESIUM 2.2 04/11/2024 Iron studies PENDING ASSESSMENT/PLAN: This is a 73-year-old male who suffered surgically provoked pulmonary embolism leading to PE arrestDecemb2022 following laminectomy. Unfortunately, his initial course of anticoagulant therapywas complicated by epidural hematoma November 2023 leading to paralysis. He has currently in a spinal injury cord unit. Given his epidural hematoma, he had an IVC filter placed November 09, 2023. He subsequently developed bilateral lower extremity deep vein thromboses and has been on anticoagulant therapy consistently since February 2024. He has had no complications on anticoagulant therapy since resuming February 2024. I reviewed with the patient that in general patients who have a venous thromboembolic event provoked in the setting of major surgery have a low risk of recurrence. However, his situation is complicated by his new hemiparalysis. Given this, he will have indefinite immobilization of his bilateral lower extremities. I reviewed with the patient that patients with spinal cord injury or at increased risk of lower extremity deep vein thromboses for the 1st 6-12 months after injury. Given this, the earliest I would recommend to reconsider his dosing would be August 2024. In addition, I reviewed with the patient that he does not have a long-term indication for IVC filter. We did obtain venous duplex ultrasound of the bilateral lower extremities today with results pending. We will plan to re- engage Interventional Radiology and plan for removal of his IVC filter in the near future to prevent long-term complications as he continues to be a candidate for anticoagulanttherapy at this time. I reviewed with the patient that I agree with his current anticoagulant of rivaroxaban as well as dose of 20 mg daily. I do not recommend any dose changes at this time. We can re-evaluate him in August 2024 for either discontinuation, continuation of the same dose, or reduction to maintenance therapy of 10 mg daily. The patient and his 's questionsWere clearly answered and they had no additional questions at the end of the visit. Katharine Way MD documented in this encounter Plan of Treatment Not on file documented as of this encounter Results * US Vein Duplex Lower Extremity Bilateral Complete (04/11/2024 10:58 AM CDT) Anatomical Region Laterality Modality Vascular Bilateral Ultrasound 04/11/2024 10:3 7 AM CDT Narrative 04/11/2024 12:48 PM CDT [facility] - Department of Vascular Surgery, Vascular Laboratory [address] [place] [address] Lower Extremity Venous Ultrasound Report Patient Name: HIRA EVANS : 1950 (73y 9m) Study Date: 04/11/2024 10:37:34 AM Gender: M Tech: TT Location: [facility] Provider: KATHARINE WAY ?Quality: Adequate Order Provider: KATHARINE WAY PROCEDURES: Vascular Report: Venous Duplex imaging [...] acute cor pulmonale present - FINDINGS: Performing School Bus Driver/Teacher Assistant: Tremaine Albright RVT. Bilateral: Venous Doppler signals [...] By: Scott Martinez MD [facility] 2024-04-11 12:48:17 CDT Procedure Note Scott Martinez MD - 04/11/2024 [facility] - Department of Vascular Surgery,Vascular Laboratory [address] [place] [address] Lower Extremity Venous Ultrasound Report Patient Name: HIRA EVANS : 1950 (73y 9m) Study Date: 04/11/2024 10:37:34 AM Gender: M Tech: TT Location: [facility] Ref Provider: KATHARINE WAY Quality: Adequate Order Provider: KATHARINE WAY PROCEDURES: Vascular Report: Venous Duplex imaging was performed bilaterally in the lower extremities.The common femoral, femoral, popliteal, posterior tibial, peroneal veins wereevaluated for patency, spontaneity and phasicity with Doppler, compression and augmentationmaneuvers. Great saphenous vein proximal at the junction was evaluated with compressionmaneuvers. INDICATIONS: Pulmonary embolism, unspecified chronicity, unspecified pulmonary embolismtype, unspecified whether acute cor pulmonale present - FINDINGS: Performing School Bus Driver/Teacher Assistant: Tremaine Albright RVT. Bilateral: Venous Doppler signals [...] By: Scott Martinez MD [facility] 2024-04-11 12:48:[address] MD IMG US PROCEDURES Fi nal Result * Vitamin B12 (04/11/2024 10:31 AM CDT) Vitamin B12 391 230 - 1,250 pg/mL Blood 04/11/2024 10:3 1 AM CDT 04/11/2024 12:00 PM CDT us Katharine Way MD LAB BLOOD ORDERABLES Final Result Performing Organization Address City/[facility]/ZIP Co de Phone Number [facility] Department [place] [address] * Folate (04/11/2024 10:31 AM CDT) Folic acid 16.7 >=5.0 ng/mL Blood 04/11/2024 10:3 1 AM CDT 04/11/2024 12:[address] MD LAB BLOOD ORDERABLES Final Result [facility] Department [place] [address] * Ferritin (04/11/2024 10:31 AM CDT) Ferritin 261 30 - 400 ng/mL Blood 04/11/2024 10:3 1 AM CDT 04/11/2024 12:00 PM CDT us Katharine [address] MD LAB BLOOD ORDERABLES Final Result Performing Organization Address [facility] Co de Phone Number [facility] Department [place] [address] * (ABNORMAL) Iron profile w/ IBC (04/11/2024 10:31 AM CDT) Pathologist [facility] Iron 48(L) 50 - 150 mcg/dL TIBC 206(L) 250 - 400 mcg/dL [facility] Transferrin saturation 23 20 - 50 % [facility] Blood 04/11/2024 10:3 1 AM CDT 04/11/2024 12:[address] MD LAB BLOOD ORDERABLES Final Result Performing Organization Address [facility] de Phone Number [facility] Department [place] [address] * (ABNORMAL) Comprehensive metabolic panel (04/11/2024 10:31 AM CDT) [facility] Sodium 139 135 - 145 mmol/L Comment:Testing performed by : [facility], [address] [place] [phone] Potassium, pl 3.6 3.3 - 4.9 mmol/L [facility] Comment:Testing performed by : [facility], [address] [place] [phone] Chloride 101 97 - 110 mmol/L [facility]AGO[facility] Comment:Testing performed by : [facility], [address] [place] [phone] CO2 30 22 - 32 mmol/L [facility] Comment:Testing performed by : [facility], [address] [place] [phone] Anion gap 8 2 - 15 mmol/L [facility] Comment:Testing performed by : [facility], [address] [place] [phone] BUN 21 6 - 25 mg/dL [facility] Comment:Testing performed by : [facility], [address] [place] [phone] Creatinine 0.63(L) 0.80 - 1.30 mg/dL CERNER BJ Comment:Testing performed by : [facility], [address] [place] [phone] Glucose 103 70 - 199 mg/dL [facility]ERN[facility] BJ Comment: Interpretive Data Fasting glucose >/= 126 [...] was last revised 2022. Testing performed by: [address] [phone] Calcium 9.6 8.5 - 10.3 mg/dL CERN[facility] BJ Comment:Testing performed by : [address] [phone] Bilirubin, total 0.3 0.1 - 1.2 mg/dL [facility]J Comment:Testing performed by : [address] [phone] Protein, pl 7.4 6.5 - 8.5 g/dL [facility] BJ Comment:Testing performed by : [address] [address] Albumin 4.1 3.5 - 5.0 g/dL CERN[facility] BJ Comment:Testing performed by : [address] [phone] Alk phos 93 40 - 130 Units/L CERNER BJ Comment:Testing performed by : [address] [phone] ALT 13 7 - 55 Units/L CERNER BJ Comment:Testing performed by : [address] [phone] AST 14 10 - 50 Units/L CERNER BJ Comment:Testing performed by : [address] [phone] Blood 04/11/2024 10:3 1 AM CDT 04/11/2024 10:[address] MD LAB BLOOD ORDERABLES Final Result [facility] Department [place] [address] * (ABNORMAL) CBC with auto differential (04/11/2024 10:31 AM CDT) WBC 5.8 3.8 - 9.8 K/cumm Comment:Testing performed by : [address] [phone] Hgb 12.0(L) 13.8 - 17.2 g/dL [facility] Comment:Testing performed by : [address] [phone] Hct 35.8(L) 40.7 - 50.3 % [facility] Comment:Testing performed by : [address] [address] Plt 213 140 - 440 K/cumm [facility] Comment:Testing performed by : [address] [address] MPV 7.7 6.8 - 10.4 fL LAURA BJ Comment:Testing performed by : [address] [phone] RBC 3.95(L) 4.50 - 5.70 M/cumm LAURA BJ Comment:Testing performed by : [address] [phone] MCV 90.5 80.0 - 97.6 fL CERMICHAEL BJ Comment:Testing performed by : [address] [phone] MCH 30.5 26.7 - 33.7 pg CERMICHAEL BJ Comment:Testing performed by : [address] [address] MCHC 33.7 32.7 - 35.5 g/dL [facility]AGO[facility] Comment:Testing performed by : [facility], [address] [facility] [phone] RDW CV 16.6(H) 11.8 - 14.6 % [facility] ZARAGO[facility] Comment:Testing performed by : [facility], [address] [facility] [phone] NRBC abs 0.00 0.00 - 0.01 K/cumm [facility] ZARAGO[facility] Comment:Testing performed by : [facility], [address] [place] [phone] Blood 04/11/2024 10:3 1 AM CDT 04/11/2024 10:33 AM CDT us Katharine Way MD LAB BLOOD ORDERABLES Final Result [facility] [place] [address] documented in this encounter Visit Diagnoses Diagnosis Pulmonary embolism, unspecified chronicity, unspecified pulmonary embolism type, unspecified whether acute cor pulmonale present (HCC)- Primary Pulmonary embolism, unspecified chronicity, unspecified pulmonary embolism type, unspecified whether acute cor pulmonale present (HCC) documented in this encounter Historical Medications * This list may reflect changes made after this encounter. nitrofurantoin monohydrate (MACROBID) 100 mg capsule Take 1 capsule (100 mg total) by mouth 2 (two) times a day 04/04/2024 06/02/2024 added in this encounter Orders Appointment Requests Count Last Ordered Date Fi rst Ordered Date [facility] APPOINTMENT REQUEST 1 [phone] documented in this encounter Care Teams General Lot Attendant Relationship Specialty Start Date End Date Rl Medina DO [address] [place] [address] PCP - General 08/09/17 05/25/24 documented as of this encounter
--- OUTSIDE RECORDS SUMMARY | 2024-11-05 19:18 | XMS_ITS | Encounter Summary ---
Author Organization [facility] Healthcare Address [address] [place] [address] Care Team Providers Care Act English Tutor Name Role Phone Rl Medina DO Primary Care Provider [phone] Reason for Visit * MRI/CAT/PET Scan (Routine) - Pending Review Specialty Diagnoses / Procedures Referred By Contac t Referred To Contact Radiology Diagnoses Pulmonary embolism, unspecified chronicity, unspecified pulmonary embolism type, unspecified whether acute cor pulmonale present (HCC) Procedures CT Chest PE (CTA) W Contrast CTA Chest W Contrast Katharine Hampton MD [address] [facility] [address] [place] [address] Phone: tel: fax: [address] [phone] Referral ID Status Reason Start Date Expiration Date V isits Requested Visits Authorized [id number] Pending Review 02/13/2024 03/14/2025 1 1 Encounter Details Date Type Department Care Team (Latest Contact Info) Description 04/11/2024 7:44 AM CDT - 04/11/2024 11:59 PM CDT Hospital Encounter [facility] [address] [place] [id number] Pulmonary embolism, unspecified chronicity, unspecified pulmonary embolism type, unspecified whether acute cor pulmonale present (HCC) Discharge Disposition: Discharge to home or self care Social History Tobacco Use Types Packs/Day Years Used Date Smoking Tobacco: Former Cigarettes 1 11 1 969 1979 Passive Smoke Exposure: Never Smokeless Tobacco: Never Alcohol Use Standard Drinks/Week Comments Yes 14 (1 standard drink = 0.6 oz pu re alcohol) social [facility] Utilities Answer Date Recorded In the [...] often do you attend chur ch or jewish services? 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 Not on file [...] ound healing Take 1 tablet by mouth gang mower operator before breakfast ondansetron ODT (ZOFRAN-ODT) 4 [...] 1 tablet (20 mEq total) by mouth gang mower operator before breakfast 4 senna-docusate (PERICOLACE) 8.6-50 mg Take 1 tablet by mouth nightly 4 tamsulosin (FLOMAX) 0.4 mg extended release capsule Take 1 capsule (0.4 mg total) by mouth daily 30 capsule 11 4 02/27/20 25 arginine-glutamine- calcium HMB 7-7-1.5 gram powder in packetIndications:w ound Take 1 Dose by mouth 2 (two) times a day Scout 06/02/20 24 hydroCHLOROthiazide (HYDRODIURIL) 12.5 mg tablet 4 06/02/20 24 levETIRAcetam (KEPPRA) 1,000 mg tablet Take 1 tablet (1,000 mg total) by mouth 2 (two) times a day 4 04/15/20 24 nitrofurantoin monohydrate (MACROBID) 100 mg capsule Take 1 capsule (100 mg total) by mouth 2 (two) times a day 4 06/02/20 24 Xarelto 20 mg tabletIndications:D VT Take 1 tablet (20 mg total) by mouth daily with breakfast 4 09/10/20 24 documented as of this encounter Discharge Disposition Disposition Code Departure Means Destination Discharge to home or self care documented in this encounter Plan of Treatment Not on file documented as of this encounter Procedures Procedure Name Priority Date/Time Associated Diagnosis Comments CT CHEST PE W CONTRAST Schedule Routine, Read Routine (OP Routine) 04/11/2024 8:52 AM CDT Pulmonary embolism, unspecified chronicity, unspecified pulmonary embolism type, unspecified whether acute cor pulmonale present (HCC) POCT CREATININE - DEVICE Routine 04/11/2024 8:05 AM CDT documented in this encounter Results * CT Chest PE (CTA) W Contrast (04/11/2024 8:52 AM CDT) Anatomical Region Laterality Modality Body N/A Computed Tomogra phy 04/11/2024 9:27 AM CDT Impressions 04/11/2024 9:27 AM CDT 1. ??Near complete resolution of pulmonary emboli with tiny residual nonocclusive thrombus in a right lower lobe subsegmental pulmonary artery. ??No acute pulmonary embolus. 2. ??Resolved left renal subcapsular hematoma. Electronically signed by: Ana Meek M.D. Narrative 04/11/2024 9:27 AM CDT EXAMINATION: CT CHEST PE (CTA) W CONTRAST HISTORY: Pulmonary embolism, follow up. TECHNIQUE: Computed tomographic images were acquired using a chest angiographic protocol optimized for pulmonary embolism. ??Contrast enhanced transaxial images were obtained following the intravenous administration of 69 ml of nonionic contrast. ??Multiplanar reformatted images and three-dimensional images were obtained on the 3-D workstation and sent to the PACS archival system. ?? COMPARISON: CT dated 11/09/2023 FINDINGS: There has been near complete resolution of previously seen pulmonary emboli with No only minimal residual nonocclusive thrombus within the right lower lobe subsegmental pulmonary artery (series 5, image 158). ??No acute pulmonary emboli. The thoracic aorta is normal in caliber. ??Heart size is normal. ??No pericardial effusion. ??Multivessel coronary artery disease. The thyroid is normal. ??No thoracic lymphadenopathy. ??There is fluid within the superior pericardial recess. Minimal bibasilar atelectasis. ??Stable 4 mm nodule in the periphery of the right upper lobe (series 6, image 31). ??Previously seen peripheral groundglass opacities in the right upper and middle lobes have resolved. ??No ??focal consolidation, pleural effusion, or pneumothorax. ??The central airways are patent. Imaged portions of the upper abdomen show no acute findings. Nonobstructing tiny right renal calculus. ??Multiple scattered hypoattenuating lesions in the liver appear unchanged, the majority of which are consistent with simple cysts while others are too small to characterize. ??Recently seen left renal subcapsular hematoma has resolved. No suspicious osseous lesions. ??Healed left rib fracture deformities. Procedure Note Ana Meek MD - 04/11/2024 EXAMINATION: CT CHEST PE (CTA) W CONTRAST HISTORY: Pulmonary embolism, follow up. TECHNIQUE: Computed tomographic images were acquired using a chest angiographic protocol optimized for pulmonary embolism. Contrast enhanced transaxial images were obtained following the intravenous administration of 69 ml of nonionic contrast. Multiplanar reformatted images and three-dimensional images were obtained on the 3-D workstation and sent to the PACS archival system. COMPARISON: CT dated 11/09/2023 FINDINGS: There has been near complete resolution of [...] subsegmental pulmonary artery. No acute pulmonary embolus. 2. Resolved left renal subcapsular hematoma. Electronically signed by: Ana Meek M.D. Katharine Hampton MD IM CT PROCEDURES Fi nal Result * POCT creatinine (04/11/2024 8:05 AM CDT) Creatinine POC 0.8 0.7 - 1.3 mg/dL Blood 04/11/2024 8:05 AM CDT 04/11/2024 8:05 AM CDT us Rae Weller RESEARCH ASSOCIATE MOLECULAR BIOLOGY LAB POCT ORDERABLES - DEVIC E Final Result [facility] Department [place] [address] documented in this encounter Visit Diagnoses Diagnosis Pulmonary embolism, unspecified chronicity, unspecified pulmonary embolism type, unspecified whether acute cor pulmonale present (HCC) documented in this encounter Administered Medications Inactive Administered Medications - up to 3 most recent administrations Medication Order MAR Action Action Date Dose Rate Site ioversoL (OPTIRAY 350) syringe 75 mL 75 mL, intravenous, Once in imaging, contrast, Starting on Sun04/11/24 at 0824, For 1 dose Contrast Given 04/11/2024 8:53 AM CDT 69 mL documented in this encounter Orders Medications Ordered That Armando ht Not Have Been Administered Count Last Ordered Date First Ordered Date ioversoL (OPTIRAY 350) syringe 75 mL 1 05/2024 documented in this encounter Care Teams Act English Tutor Relationship Specialty Start Date End Date Rl Medina DO [address] [place] [address] PCP - General 08/09/17 05/25/24 documented as of this encounter
--- OUTSIDE RECORDS SUMMARY | 2024-11-05 19:18 | XMS_ITS | Encounter Summary ---
Author Organization [facility] Healthcare Address [address] [place] [address] Care Team Providers Care Financial Foundations Representative Name Role Phone No, Physician Primary Care Provider [phone] Encounter Details Date Type Department Care Team (Late st Contact Info) Description 05/29/2024 Telephone Radiology [address] [place] [address] Macy Fernando RN Social History Tobacco Use Types Packs/Day Years Used Date Smoking Tobacco: Former Cigarettes 1 11 969 1979 Passive Smoke Exposure: Never Smokeless Tobacco: Never Alcohol Use Standard Drinks/Week Comments Yes 14 (1 standard drink = 0.6 oz pu re alcohol) social C Utilities Answer Date Recorded In the past 12 months has [employer] electric, gas, oil, or water [employer] threatened to shut off services in your [...] often do you attend chur ch or mosque services? 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 documented in this encounter Plan of Treatment Not on file documented as of this encounter Visit Diagnoses Not on filedocumented in this encounter Care Teams Financial Foundations Representative Relationship Specialty Start Date End Date No, Physician PCP - General 05/26/24 documented as of this encounter
--- OUTSIDE RECORDS SUMMARY | 2024-11-05 19:18 | XMS_ITS | Encounter Summary ---
Author Organization [facility] Healthcare Address [address] [place] [address] Care Team Providers Care Special Forces Medical Sergeant Name Role Phone Rl Medina DO Primary Care Provider Encounter Details Date Type Department Care Team (Late st Contact Info) Description 05/07/2024 Telephone Radiology [address] [place] [address] Macy Fernando RN Social History Tobacco Use Types Packs/Day Years Used Date Smoking Tobacco: Former Cigarettes 1 11 1 969 - 1979 Passive Smoke Exposure: Never Smokeless Tobacco: Never Alcohol Use Standard Drinks/Week Comments Yes 14 (1 standard drink = 0.6 oz pu re alcohol) social [facility] Utilities Answer Date Recorded In the past 12 months has [employer] electric, gas, oil, or water company threatened [...] No 12/27/2023 Housing Stability Vital Sign Answer Hsalom e Recorded In the last 12 months, [...] on file 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 Procedure dates given to , to call RN to schedule when transportation is arranged. documented in this encounter Plan of Treatment Not on file documented as of this encounter Visit Diagnoses Not on filedocumented in this encounter Care Teams Special Forces Medical Sergeant Relationship Specialty Start Date End Date Rl Medina DO [address] [place] [address] PCP - General 08/09/17 05/25/24 documented as of this encounter
--- OUTSIDE RECORDS SUMMARY | 2024-11-05 19:18 | XMS_ITS | Encounter Summary ---
Author Organization [facility] Healthcare Address [address] [place] [address] Care Team Providers Care Sewer Line Photo Inspector Name Role Phone No, Physician Primary Care Provider [phone] Encounter Details Date Type Department Care Team (Late st Contact Info) Description 06/02/2024 Telephone Radiology [address] [place] [address] Macy Fernando RN Social History Tobacco Use Types Packs/Day Years Used Date Smoking Tobacco: Former Cigarettes 1 11 969 1979 Passive Smoke Exposure: Never Smokeless Tobacco: Never Alcohol Use Standard Drinks/Week Comments Yes 14 (1 standard drink = 0.6 oz pu re alcohol) social C Utilities Answer Date Recorded In the past 12 months has [employer] electric, gas, oil, or water [employer] threatened to shut off services in your [...] often do you attend chur ch or shinto services? 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 Yes Appt info letter sent: Yes ALLERGIES: No Known Allergies Infection Flag: Does the patient have any of the following medical conditions? Sedation: Previous problems with anesthesia or sedation? No Cardiovascular/Respiratory: None Lung: None Renal/Liver/GI: None Bleeding/Clotting: Blood clot within previous year Most recent coag results: PLT= 213 Date of redraw (if applicable): 06/25/24 Medications: * * * For blood thinners/antiplatelet agents, REVIEW MED REC AND LIST THEM APPROPRIATE * * * Blood thinners: Rivaroxaban (Xarelto) Patient & Procedure Risk Assessment Proceed with scheduling documented in this encounter Plan of Treatment Not on file documented as of this encounter Visit Diagnoses Not on filedocumented in this encounter Care Teams Sewer Line Photo Inspector Relationship Specialty Start Date End Date No, Physician PCP - General 05/26/24 documented as of this encounter
--- OUTSIDE RECORDS SUMMARY | 2024-11-05 19:18 | XMS_ITS | Encounter Summary ---
Author Organization [facility] Healthcare Address [address] [place] [address] Care Team Providers Care Manager Adobe Name Role Phone No, Physician Primary Care Provider [phone] Reason for Visit * Auth/Cert (Routine) Specialty Diagnoses / Procedures Referred By Contac t Referred To Contact Diagnoses Nephrolithiasis Nephrolithiasis [N20.0] Procedures AK CYSTOURETHROSCOPY CYSTOSCOPY REMOVAL STENT - URETERAL EXCHANGE STENT - URETERAL Referral ID Status Reason Start Date Expiration Date Visits Re quested Visits Authorized [id number] 1 1 Encounter Details Date Type Department Care Team (Late st Contact Info) Description 06/06/2024 9:27 AM CDT Anesthesia Event [facility] Operating Room [address] [place] [address] Galina Pruitt MD [address] [facility] [address] [place] [address] Linda Thompson NP [address] [facility] [id number] [place] [address] Anesthesia Record Procedure Summary Procedure Name Responsible Anesthesiologist Anesthesia Start Time Anesthesia Stop Time CYSTOSCOPY Galina Pruitt MD 06/06/24 092 7 06/06/24 1031 Events Date Time Event Comment 06/06/2024 0812 In Preop 0910 0927 An Start 0929 In Room 0930 An Start Data 0936 An Induction The patient was reevaluated immediately before moderate or deep sedation use and before anesthesia induction. 0941 An LMA 0944 Anesthesia Ready 0950 Proc Start 1015 Proc Fin 1021 Airway Removed 1022 an stop data 1023 Out of Room 1031 Handoff to RN I completed my handoff [...] disposition at the time of handoff: PACU 1031 An Stop Meds Name Total lidocaine (cardiac) syringe 2 % 80 mg propofol 400 mg fentaNYL 100 mcg phenylephrine 100 mcg/mL 1,000 mcg ondansetron PF (ZOFRAN) 2 mg/mL injectio n 4 mg cefTRIAXone (ROCEPHIN) 2,000 mg/20 mL in sterile water (premix) 2,000 mg 2,000 mg dexAMETHasone 4 mg/mL 4 mg Lactated Ringer's (LR) infusion 700 mL * Agents Name O2% N2O O2 N2O Air Sevoflurane Inspired Sevoflurane * Blood No blood administrations on file. Lines, Drains, and Airways Type Details Placement Removal Urethral Catheter Placement Date: 06/06/24; Placement Time: 1010; Type: Double-lumen; Balloon Size: 10 mL; Urine Returned: Yes 06/06/24 1010 by Chel Velazquez RN RETIRED Wound 12/25/23; 1030; Yes; Abrasion(s); Anterior, Right; Toe (Comment which one) (second toe); abrasion from hiting it on wheelchair; 08/04/24; 1000; Not present on admission 12/25/23 1030 by Katharine Montgomery RN 08/04/24 1000 by Octavio Haider, NARENDRA RETIRED Surgical Site 02/27/24; 1054; Pe nis; 06/06/24; 1025; Therapy completed 02/27/24 1054 by Honorio Bhakta RN 06/06/24 1025 by Brennen Lerma RETIRED Surgical Site 02/27/24; 1054; Fl ank; 08/04/24; 1000; Not present on admission 02/27/24 1054 by Honorio Bhakta RN 08/04/24 1000 by Octavio Haider RN ETT Placement Date: 02/27/24; Placement Time: 1203 (created via procedure documentation); Mask Ventilation: 1; Technique: Direct laryngoscopy; Type: ETT - single; Single Lumen Tube Size: 8 mm; Cuffed: Yes; Laryngoscope: Burns; Blade Size: 3; Location: Oral; Grade View: Grade I; Placement Verification: Auscultation, Capnometry; Removal Date: 06/06/24; Removal Time: 1021 02/27/24 1203 by Olivia Silvestre CRNA 06/06/24 1021 by Kaiser Aadir CRNA Peripheral IV Placement Date: 06/06/24; Placement Time: 0840; Catheter Size: 20 G; Orientation: Anterior, Right; Location: Hand; Site Prep: Chlorhexidine; Inserted by: pop perez rn; Insertion Attempts: 1; Patient Tolerance: Tolerated well; Removal Date: 06/06/24; Removal Time: 1221; Removal Reason: Discharge 06/06/24 0840 by Mary Perez RN 06/06/24 1221 by Brennen Lerma Supraglottic Airway Placement Date: 06/06/24; Placement Time: 0951 (created via procedure documentation); Mask Ventilation: 1; Size: 4; Insertion Attempts: 1; Removal Date: 06/06/24; Removal Time: 1021 06/06/24 0951 by Kaiser Adair CRNA 06/06/24 1021 by Kaiser Adair CRNA documented in this encounter Social History Tobacco Use Types Packs/Day Years Used Date Smoking Tobacco: Former Cigarettes 1 11 1 969 - 1979 Passive Smoke Exposure: Never Smokeless Tobacco: Never Alcohol Use Standard Drinks/Week Comments Yes 14 (1 standard drink = 0.6 oz pu re alcohol) social [facility] Utilities Answer Date Recorded In the past 12 months has [employer], [employer], or water [employer] threatened to shut off services in your [...] often do you attend chur ch or taoism services? 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 Not on file Not on file Not on file documented as of this encounter OR Notes * Anesthesia Postprocedure Evaluation - Galina Pruitt MD - 06/06/2024 11:09 AM CDT Patient: Hira Evans Procedure Summary Date: 06/06/24 Room / Location: [facility] OR POD 1 ROOM 325 / [facility] OR POD 1 Anesthesia Start: 926 Anesthesia Stop: 1030 Procedures: CYSTOSCOPY REMOVAL STENT - URETERAL (Left: Ureter) PYELOGRAM - RETROGRADE (Left: Perineum) Diagnosis: Nephrolithiasis (Nephrolithiasis [N20.0]) Surgeons: Temo Mcintosh MD Responsible Provider: Galina Pruitt MD Anesthesia Type: general ASA Status: 3 Anesthesia Type: general Last vitals BP 119/68 Pulse 62 Temp 36 ??C (96.8 ??F) (Temporal) Resp 16 SpO2 100% Anesthesia Post Evaluation Patient location during evaluation: PACU Patient participation: complete - patient participated Level of consciousness: follows simple commands and fully awake Pain score: 2 Pain management: adequate Airway patency: adequate Evidence of recall: no Cardiovascular status: acceptable and hemodynamically stable Respiratory status: acceptable and room air Hydration status: acceptable Pt is: normothermic Nausea/Vomiting status: none No notable events documented. * Anesthesia Procedure Notes - Kaiser Adair CRNA - 06/06/2024 9:51 AM CDTAssociated Order(s): Airway Airway Patient location: OR Urgency: elective Indications for airway management: anesthesia Difficult airway: no Staff: Supervising provider: Galina Pruitt MD Placed by: STONE FABRICATOR: Kaiser Adair CRNA Emergent airway documentation: Risks and benefits discussed: yes Consent obtained: yes Consent given by: patient Airway prep: Preoxygenated: yes Patient position: sniffing Mask difficulty assessment: 1 - vent by mask Spontaneous ventilation during airway: absent Sedation level during airway: GA Final airway details: Final airway type: supraglottic airway Final supraglottic airway: IGel SGA size: 4 Number of attempts: 1 * Anesthesia Preprocedure Evaluation - Galina Pruitt MD - 06/02/2024 9:57 AM CDT Images from the original note were not included. [facility] Preoperative Assessment and Planning Preoperative Evaluation Record Evaluation type/location: TPAP from [facility] Planned procedure site: [facility] PVT OR (Pod 1) Date: 06/02/24 NOTE: [...] on Xarelto. Spoke with Glenna MACKEY at [facility] Pt requires Pia lift d/t LE Paralysis [...] CHEST CT 04/11/2024- Multivessel coronary artery disease.); [place] ; CABG ;atrial fibrillation; pacemaker/ICD; negative for [...] 04/11/2024) Pertinent negatives: liver disease Comments: F/b [facility] Hematology Gastrointestinal + GERD - on daily [...] in a spinal injury cord unit at [facility] Given his epidural hematoma, he had an IVC filter placed November 09, 2023. 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 He has had no complications on anticoagulant therapy since resuming February 2024. Has since seen [facility] Heme 04/11/2024- and underwent BLE US 04/11 [...] Please call the CPAP chart room clinician [phone]) to revisit risk assessment, with any questions, [...] significant findings Patient instructions were axed to [facility] Spoke with NARENDRA Manzanares.# [phone] [facility] Complete Preoperative evaluation performed by Linda Thompson NP on 06/02/24 at 11:03 AM . Patient Active Problem List Diagnosis Date Noted Nephrolithiasis 12/25/2023 DVT (deep venous thrombosis) (CMS/HCC) ([facility]) 11/29/2023 Anemia 11/29/2023 Paraspinal hematoma 11/29/2023 Hyponatremia 11/29/2023 Elevated transaminase level 11/29/2023 Lower extremity edema 11/29/2023 Scrotal swelling 11/29/2023 Seizure (HCC) 11/29/2023 Prediabetes 11/29/2023 Kidney stone 11/09/2023 Paralysis of both lower limbs (CMS/HCC) (HCC) 11/07/2023 Pulmonary embolism (HCC) 10/26/2023 S/P spinal fusion 10/23/2023 Cardiac arrest ([facility]) 10/23/2023 Left perinephric collection, 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 10/15/2023 Ureteral colic 10/13/2023 UTI (urinary tract infection) 10/13/2023 Hydronephrosis with urinary obstruction due to renal calculus 10/12/2023 Lumbar radiculopathy 10/08/2023 Gross hematuria 10/18/2022 Bladder neck obstruction 10/17/2022 Lesion of urinary bladder 10/17/2022 Prostate cancer ([facility]) 10/17/2022 HTN (hypertension) 10/10/2021 Risk factors for obstructive sleep apnea 10/10/2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 Med list scanned into media Taking? Last [...] 20 mEq CR tablet 06/02/2024 01/22/24 -- Provider, Historical, MD senna-docusate (PERICOLACE) 8.6-50 mg 06/02/2024 12/10/23 -- Jimenez Henao MD Take 1 tablet by mouth nightly Patient taking differently: Take 1 tablet by mouth marketing teacher before breakfast tamsulosin (FLOMAX) 0.4 mg extended [...] last 30 days. Joni index score: 60 DOS Physical Exam Medical history, medications, and allergies reviewed. Attestation: With today's edits, I endorse the findings of the anesthesia pre-evaluation assessment dated: 06/02/2024. Airway Exam: Mallampati: III Cervical ROM: FROM TM distance: 3.5 Cardiovascular Exam: Rate: regular Rhythm: regular Pulmonary Exam: LCTA, bilat EENT Exam: trachea midline Dental Exam: Appears intact Anesthesia Plan ASA 3 Planned anesthesia: General Team communication plan: LMA Induction: Induction: intravenous. Postoperative Plan: Patient's planned disposition post procedure is Outpatient. Informed Consent: Anesthesia plan and risks discussed with patient and spouse. Consent and Attending signature: I and/or my [...] Procedure Name Priority Date/Time Associated Diagnosis Comments AK AN PROCEDURE PLACEHOLDER Routine 06/06/2024 9:51 AM CDT AK AN ELECTIVE SUPRAGLOTTIC AIRWAY Routine 06/06/2024 9:51 AM CDT documented in this encounter Results * AK AN ELECTIVE SUPRAGLOTTIC AIRWAY, AK AN PROCEDURE PLACEHOLDER (06/06/2024 9:51 AM CDT) Narrative Kaiser Adair CRNA - 06/06/2024 9:51 AM CDT Kaiser Adair CRNA ? 06/06/2024 ??9:51 AM Airway Patient location: OR Urgency: elective Indications for airway management: anesthesia Difficult airway: no Staff: Supervising provider: Galina Pruitt MD Placed by: STONE FABRICATOR: Kaiser Adair CRNA Emergent airway documentation: Risks and benefits discussed: yes Consent obtained: yes Consent given by: patient Airway prep: Preoxygenated: yes Patient position: sniffing Mask difficulty assessment: 1 - vent by mask Spontaneous ventilation during airway: absent Sedation level during airway: GA Final airway details: Final airway type: supraglottic airway Final supraglottic airway: IGel SGA size: 4 Number of attempts: 1 Kaiser Adair CRNA ANESTHESIA ORDERAB LES Final Result documented in this encounter Visit Diagnoses Not on filedocumented in this encounter Administered Medications Inactive Administered Medications - up to 3 most recent administrations Medication Order MAR Action Action Date Dose Rate Site cefTRIAXone (ROCEPHIN) 2,000 mg/20 mL in sterile water (premix) 2,000 mg 2,000 mg, intravenous, at 240 mL/hr, Administer over 5 Minutes, Once, On Sun06/06/24 at 1015, For 1 dose, Pre-Op, Indications: Prophylaxis, SurgicalIndications:Prophylaxis , Surgical Given 06/06/2024 9:42 AM CDT 2,000 mg dexAMETHasone (DECADRON) 4 mg/mL injection intravenous, Administer over 2 Minutes, As needed, Starting on Sun06/06/24 at 0948, Anesthesia Intra-op Given 06/06/2024 9:48 AM CDT 4 mg fentaNYL (SUBLIMAZE) preservative free injection intravenous, As needed, Starting on Sun06/06/24 at 0939, Anesthesia Intra-op Given 06/06/2024 10:21 AM CDT 25 mcg Given 06/06/2024 9:49 AM CDT 25 mcg Given 06/06/2024 9:39 AM CDT 50 mcg Lactated Ringer's (LR) infusion 30 mL/hr, intravenous, Continuous, Starting on Sun06/06/24 at 0900, Pre-Op Restarted 06/06/2024 10:30 AM CDT Rate/Dose Verify 06/06/2024 9:27 AM CDT 30 mL/h r New Bag 06/06/2024 8:35 AM CDT 30 mL/hr 30 mL/hr lidocaine (cardiac) (XYLOCAINE) preservative free injection intravenous, As needed, Starting on Sun06/06/24 at 0936, Anesthesia Intra-op, Indications: Ventricular ArrhythmiasIndications:Ventricular Arrhythmias Given 06/06/2024 9:36 AM CDT 80 mg ondansetron (ZOFRAN) injection intravenous, Administer over 2 Minutes, As needed, Starting on Sun06/06/24 at 0948, Anesthesia Intra-op Given 06/06/2024 9:48 AM CDT 4 mg phenylephrine (ARIELLE-SYNEPHRINE) 1 mg/10 mL (100 mcg/mL) in sodium chloride 0.9% (premix) intravenous, As needed, Starting on Sun06/06/24 at 0938, Anesthesia Intra-op Given 06/06/2024 10:13 AM CDT 50 mcg Given 06/06/2024 10:10 AM CDT 100 mcg Given 06/06/2024 10:07 AM CDT 100 mcg propofoL (DIPRIVAN) 10 mg/mL IV intravenous, As needed, Starting on Sun06/06/24 at 0936, Anesthesia Intra-op Given 06/06/2024 9:41 AM CDT 50 mg Given 06/06/2024 9:40 AM CDT 50 mg Given 06/06/2024 9:39 AM CDT 100 mg documented in this encounter Care Teams Manager Adobe Relationship Specialty Start Date End Date No, Physician PCP - General 05/26/24 documented as of this encounter
--- OUTSIDE RECORDS SUMMARY | 2024-11-05 19:18 | XMS_ITS | Encounter Summary ---
Author Organization [facility] Healthcare Address [address] [place] [address] Care Team Providers Care Siene Maker Name Role Phone Rl Medina DO Primary Care Provider Reason for Referral * Neurology (Routine) - Closed Specialty Diagnoses / Procedures Referred By Charlesac t Referred To Contact Diagnoses Seizures (HCC) Procedures Ambulatory EEG -[facility] (All Locations) Adri Lester MD Phone: tel: fax: [facility] (All Locations) Referral ID Status Reason Start Date Expiration Date Visits Re quested Visits Authorized [id number] Closed 02/05/2024 03/06/2025 1 1 Reason for Visit * Neurology (Routine) - Closed Specialty Diagnoses / Procedures Referred By Contrussell gale Referred To Contact Diagnoses Seizures (HCC) Procedures Ambulatory EEG -[facility] (All Locations) Adri Lester MD Phone: tel: fax: [facility] (All Locations) Referral ID Status Reason Start Date Expiration Date Visits Re quested Visits Authorized [id number] Closed 02/05/2024 03/06/2025 1 1 Encounter Details Date Type Department Care Team (Latest Contact Info) Description 04/08/2024 9:18 AM CDT - 04/08/2024 11:59 PM CDT Hospital Encounter [facility] Neurodiagnostics [address] [place] [address] Senthil Murillo Seizures (HCC) Discharge Disposition: Discharge to home or self care Social History Tobacco Use Types Packs/Day Years Used Date Smoking Tobacco: Former Cigarettes 1 09 05 [id number] Passive Smoke Exposure: Never Smokeless Tobacco: Never Alcohol Use Standard Drinks/Week Comments Yes 14 (1 standard drink = 0.6 oz pu re alcohol) social [facility] Utilities Answer Date Recorded In the past 12 months has [employer], gas, oil, or water [employer] threatened to shut off services in your [...] week 12/27/2023 How often do you attend [facility] or druze services? 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 Not on file Not [...] ound healing Take 1 tablet by mouth licensed mortician before breakfast ondansetron ODT (ZOFRAN-ODT) 4 mg [...] 1 tablet (20 mEq total) by mouth licensed mortician before breakfast 4 senna-docusate (PERICOLACE) 8.6-50 mg Take 1 tablet by mouth nightly 4 tamsulosin (FLOMAX) 0.4 mg extended release capsule Take 1 capsule (0.4 mg total) by mouth daily 30 capsule 4 02/27/20 25 arginine-glutamine- calcium HMB 7-7-1.5 gram powder in packetIndications:w ound Take 1 Dose by mouth 2 (two) times a day 06/02/20 24 hydroCHLOROthiazide (HYDRODIURIL) 12.5 mg tablet [...] Procedure Name Priority Date/Time Associated Diagnosis Comments AMBULATORY EEG Routine 04/09/2024 11:05 AM CDT Seizures (HCC) documented in this encounter Results * Ambulatory EEG -[facility] (All Locations) (04/09/2024 11:05 AM CDT) Anatomical Region Laterality Modality EEG Narrative 04/09/2024 4:21 PM CDT Ambulatory EEG Report Patient Name: Hira Evans [facility] Medical Record Number (MRN): [id number] Mary Pérez Record: [id number] Date of (): 1950 EEG Date: 04/08/2024 Ordering Provider: Adri Lester MD CC: Rl Medina Start Time: 10:50:42 ? End Time: 11:23:02 Introduction: Mr. Evans is a 73 y.o. male with a history of lumbar radiculopathy s/p laminectomy and fusion in late October 2023. His postoperative course was complicated by a possible seizure in the PACU. On January 08, he was observed by [facility] staff to have a brief event consisting of behavioral arrest, slumping over, that lasted for several seconds. EEG was performed to evaluate for seizures. This is a 24 channel EEG recording acquired on a ZALORA digital ambulatory EEG acquisition system. Scalp electrodes were placed with collodion according to the international 10-20 System. The analog EEG was filtered from 1-70 Hz and digitally sampled at 200 Hz. The record was then reformatted for review in bipolar and referential montages. A patient diary and push-button event system was utilized to record patient events as needed. EEG Description: The awake background included a 10 Hz posterior rhythm which attenuated with eye opening and activity. During drowsiness, identified by ocular signs and alpha attenuation, there was intermittent, diffuse, asynchronous theta activity admixed with 2-4 Hz polymorphic frontotemporal delta activity. As the record progressed, stage II sleep was identified by vertex waves, sleep spindles and K-complexes. During the recording, there were changes consisted with light and deep sleep stages. Hyperventilation and photic strobe stimulation were not performed. There were no focal, lateralized or epileptiform abnormalities. Interpretation: This is a normal awake and asleep ambulatory EEG. No events were reported by the patient. By signing this report, the attending Electroencephalographer certifies that he/she personally reviewed the electrodiagnostics study and has edited this report to fully conform with his/her intent. Signing Attending: Fransisco Patel III, MD us Adri Lester MD NEUROLOGY ORDERABLES Final Res ult documented in this encounter Visit Diagnoses Diagnosis Seizures (HCC) Other convulsions documented in this encounter Care Teams Siene Maker Relationship Specialty Start Date End Date Rl Medina DO [address] [place] [address] PCP - General 08/09/17 05/25/24 documented as of this encounter
--- OUTSIDE RECORDS SUMMARY | 2024-11-05 19:18 | XMS_ITS | Encounter Summary ---
Author Organization [facility] Healthcare Address [address] [place] [address] Care Team Providers Care Principal Mechanical Engineer Name Role Phone Rl Medina DO Primary Care Provider Encounter Details Date Type Department Care Team (Late st Contact Info) Description 04/11/2024 Telephone Radiology [address] [place] [address] Macy Fernando RN Social History Tobacco Use Types Packs/Day Years Used Date Smoking Tobacco: Former Cigarettes 1 11 1 969 - 1979 Passive Smoke Exposure: Never Smokeless Tobacco: Never Alcohol Use Standard Drinks/Week Comments Yes 14 (1 standard drink = 0.6 oz pu re alcohol) social [facility] Utilities Answer Date Recorded In the past 12 months has [employer] electric, gas, oil, or water company [...] on file 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 Vu's office for IVC filter retrieval. Referral forwarded to attendings to review. documented in this encounter Plan of Treatment Not on file documented as of this encounter Visit Diagnoses Not on filedocumented in this encounter Care Teams Principal Mechanical Engineer Relationship Specialty Start Date End Date Rl Medina DO [address] [place] [address] PCP - General 08/09/17 05/25/24 documented as of this encounter
--- OUTSIDE RECORDS SUMMARY | 2024-11-05 19:18 | XMS_ITS | Encounter Summary ---
Author Organization [facility] Address [address] [place] [address] Phone Care Team Providers Care Lime Kiln Operator Name Role Phone Rl Medina DO Primary Care Provider [phone] Encounter Details Date Type Department Care Team (Late st Contact Info) Description 04/07/2024 Telephone [facility] Surgery [address] 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 Bar[facility]. I informed her that the doctor is recommending follow up with whomever placed the IVC filter. She was informed that Dr. Barron does not treat for DVT's and that she could also reach out to her PCP and/or hematology to discuss anticoagulants documented in this encounter Plan of Treatment Not on file documented as of this encounter Visit Diagnoses Not on filedocumented in this encounter Care Teams Lime Kiln Operator Relationship Specialty Start Date End Date Rl Medina DO [address] [place] [address] PCP - General 08/09/17 05/25/24 documented as of this encounter
--- OUTSIDE RECORDS SUMMARY | 2024-11-05 19:18 | XMS_ITS | Encounter Summary ---
Author Organization [facility] Healthcare Address [address] [place] [address] Care Team Providers Care Is/It Project Manager Name Role Phone No, Physician Primary Care Provider [phone] Encounter Details Date Type Department Care Team (Late st Contact Info) Description 06/02/2024 Telephone Radiology [address] [place] [address] Macy Fernando RN Social History Tobacco Use Types Packs/Day Years Used Date Smoking Tobacco: Former Cigarettes 1 11 969 1979 Passive Smoke Exposure: Never Smokeless Tobacco: Never Alcohol Use Standard Drinks/Week Comments Yes 14 (1 standard drink = 0.6 oz pu re alcohol) social C Utilities Answer Date Recorded In the past 12 months has [employer] electric, gas, oil, or water [employer] threatened to shut off services in your [...] often do you attend chur ch or pentecostal services? 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 Patient's IVC filter retrieval moved to 06/19/24, 1000, 0800 arrival. verbalized understanding. Updated letter sent to patient via [employer]. documented in this encounter Plan of Treatment Not on file documented as of this encounter Visit Diagnoses Not on filedocumented in this encounter Care Teams Is/It Project Manager Relationship Specialty Start Date End Date No, Physician PCP - General 05/26/24 documented as of this encounter
--- OUTSIDE RECORDS SUMMARY | 2024-11-05 19:18 | XMS_ITS | Encounter Summary ---
Author Organization [facility] Healthcare Address [address] [place] [address] Care Team Providers Care Talent Analyst Name Role Phone Rl Medina DO Primary Care Provider [phone] Encounter Details Date Type Department Care Team (Latest Contact Info) Description 04/11/2024 8:45 AM CDT - 04/11/2024 11:59 PM CDT Hospital Encounter [facility] Advanced Medicine [facility] ([facility]) [address] [place] [address] Pulmonary embolism, unspecified chronicity, unspecified pulmonary embolism type, unspecified whether acute cor pulmonale present (HCC); Lower extremity edema Discharge Disposition: Discharge to home [...] Recorded In the past 12 months has [employer], gas, oil, or water [employer] threatened to shut off services in your [...] 12/27/2023 How often do you attend [facility] or adventist services? 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 on file Not on file [...] ound healing Take 1 tablet by mouth nursery supervisor before breakfast ondansetron ODT (ZOFRAN-ODT) 4 mg [...] 1 tablet (20 mEq total) by mouth nursery supervisor before breakfast 4 senna-docusate (PERICOLACE) 8.6-50 mg [...] Priority Date/Time Associated Diagnosis Comments EGFR Routine 04/11/2024 10:31 AM CDT Pulmonary embolism, unspecified chronicity, unspecified pulmonary embolism type, unspecified whether acute cor pulmonale present (HCC) DIFFERENTIAL AUTO Routine 04/11/2024 10: 31 AM CDT Pulmonary embolism, unspecified chronicity, unspecified pulmonary embolism type, unspecified whether acute cor pulmonale present (HCC) IRON PROFILE W/ IBC Routine 04/11/2024 1 0:31 AM CDT Pulmonary embolism, unspecified chronicity, unspecified pulmonary embolism type, unspecified whether acute cor pulmonale present (HCC) CBC WITH AUTO DIFFERENTIAL Routine 04/11/2024 10:31 AM CDT Pulmonary embolism, unspecified chronicity, unspecified pulmonary embolism type, unspecified whether acute cor pulmonale present (HCC) MAGNESIUM Routine 04/11/2024 10:31 AM CDT Lower extremity edema FOLATE Routine 04/11/2024 10:31 AM CDT Pulmonary embolism, unspecified chronicity, unspecified pulmonary embolism type, unspecified whether acute cor pulmonale present (HCC) FERRITIN Routine 04/11/2024 10:31 AM CDT Pulmonary embolism, unspecified chronicity, unspecified pulmonary embolism type, unspecified whether acute cor pulmonale present (HCC) VITAMIN B12 Routine 04/11/2024 10:31 AM CDT Pulmonary embolism, unspecified chronicity, unspecified pulmonary embolism type, unspecified whether acute cor pulmonale present (HCC) COMPREHENSIVE METABOLIC PANEL Routine 04/11/2024 10:31 AM CDT Pulmonary embolism, unspecified chronicity, unspecified pulmonary embolism type, unspecified whether acute cor pulmonale present (HCC) documented in this encounter Results * eGFR (04/11/2024 10:31 AM CDT) eGFR >90 >=60 mL/min/1. 73 [...] was last reviewed 2021. Testing performed by: [facility], [address] [place] [phone] Blood 04/11/2024 10:3 1 AM CDT 04/11/2024 10:33 AM CDT Katharine Hampton MD LAB BLOOD ORDERABLES Final Result [facility] [place] [address] * Differential, auto (04/11/2024 10:31 AM CDT) Neutrophil abs 3.4 1.5 - 6.6 K/cumm Comment:Testing performed by : [facility], [address] [place] [phone] Lymphocyte abs 1.6 1.2 - 3.3 K/cumm CERNER BJ Comment:Testing performed by : [facility], [address] [place] [phone] Monocyte abs 0.4 0.2 - 1.2 K/cumm CERNER BJ Comment:Testing performed by : [facility], [address] [place] [phone] Eosinophil abs 0.3 0.0 - 0.5 K/cumm CERNER BJ Comment:Testing performed by : [facility], [address] [place] [phone] Basophil abs 0.0 0.0 - 0.2 K/cumm CERNER BJ Comment:Testing performed by : [address] [phone] Neutrophil pct 59.2 % CERNER BJ Comment: Interpretive Data Percent cell count reference ranges are not reported, since discordance with absolute values may lead to misinterpretation of CBC data. Current Interpretive Data was last revised on 2018. Testing performed by: [facility], [address] [place] [phone] Lymphocyte pct 26.7 % CERNER BJ Comment: Interpretive Data Percent cell count reference ranges are not reported, since discordance with absolute values may lead to misinterpretation of CBC data. Current Interpretive Data was last revised on 2018. Testing performed by: [facility], [facility] [phone] Monocyte pct 7.6 % [facility] Comment:Testing performed by : [facility], [address] [place] [phone] Eosinophil pct 5.8 % CERNER [facility] Comment:Testing performed by : [facility], [address] [place] [phone] Basophil pct 0.7 % CERNER [facility] Comment:Testing performed by : [facility], [address] [place] [phone] Blood 04/11/2024 10:3 1 AM CDT 04/11/2024 10:33 AM CDT Katharine Hampton MD LAB BLOOD ORDERABLES Final Result Performing Organization Address City/[facility]/ZIP Co de Phone Number [facility] [place] [address] * Magnesium (04/11/2024 10:31 AM CDT) Pathologist [facility] Magnesium 2.2 1.4 - 2.5 mg/dL Comment:Testing performed by : [facility], [address] [place] [phone] Blood 04/11/2024 10:3 1 AM CDT 04/11/2024 10:33 AM CDT Jimenez Henao MD LAB BLOOD ORDERABLES Final Result [facility] [email or web address] [address] * Vitamin B12 (04/11/2024 10:31 AM CDT) Vitamin B12 391 230 - 1,250 pg/mL Blood 04/11/2024 10:3 1 AM CDT 04/11/2024 12:00 PM CDT us Katharine Hampton MD LAB BLOOD ORDERABLES Final Result Performing Organization Address City/[facility]/ZIP Co de Phone Number [facility] One [facility] [place] [address] * Folate (04/11/2024 10:31 AM CDT) Folic acid 16.7 >=5.0 ng/mL Blood 04/11/2024 10:3 1 AM CDT 04/11/2024 12:00 PM CDT us Katharine Hampton MD LAB BLOOD ORDERABLES Final Result Performing Organization Address [facility] Co de Phone Number [facility] [place] [address] * Ferritin (04/11/2024 10:31 AM CDT) Pathologist [facility] Ferritin 261 30 - 400 ng/mL Blood 04/11/2024 10:3 1 AM CDT 04/11/2024 12:00 PM CDT us Katharine Hampton MD LAB BLOOD ORDERABLES Final Result Performing Organization Address [facility] Co de Phone Number [facility] [place] [address] * (ABNORMAL) Iron profile w/ IBC (04/11/2024 10:31 AM CDT) Iron 48(L) 50 - 150 mcg/dL TIBC 206(L) 250 - 400 mcg/dL [facility] Transferrin saturation 23 20 - 50 % [facility] Blood 04/11/2024 10:3 1 AM CDT 04/11/2024 12:00 PM CDT us Katharine Hampton MD LAB BLOOD ORDERABLES Final Result [facility] Department [place] [address] * (ABNORMAL) Comprehensive metabolic panel (04/11/2024 10:31 AM CDT) Sodium 139 135 - 145 mmol/L Comment:Testing performed by : [facility], [address] [place] [phone] Potassium, pl 3.6 3.3 - 4.9 mmol/L [facility] Comment:Testing performed by : [facility], [address] [place] [phone] Chloride 101 97 - 110 mmol/L CERMICHAEL BJ Comment:Testing performed by : [facility], [address] [place] [phone] CO2 30 22 - 32 mmol/L CERMICHAEL BJ Comment:Testing performed by : [facility], [address] [place] [phone] Anion gap 8 2 - 15 mmol/L CERMICHAEL BJ Comment:Testing performed by : [facility], [address] [place] [phone] BUN 21 6 - 25 mg/dL [facility]ERMIC[facility]EL BJ Comment:Testing performed by : [facility], [address] [place] [phone] Creatinine 0.63(L) 0.80 - 1.30 mg/dL CERMICHAEL BJ Comment:Testing performed by : [address] [phone] Glucose 103 70 - 199 mg/dL [facility] Comment: Interpretive Data Fasting glucose >/= 126 [...] was last revised 2022. Testing performed by: [facility], [address] [place] [phone] Calcium 9.6 8.5 - 10.3 mg/dL [facility] Comment:Testing performed by : [facility], [address] [place] [phone] Bilirubin, total 0.3 0.1 - 1.2 mg/dL [facility] Comment:Testing performed by : [facility], [address] [place] [phone] Protein, pl 7.4 6.5 - 8.5 g/dL [facility] Comment:Testing performed by : [facility], [address] [place] [phone] Albumin 4.1 3.5 - 5.0 g/dL [facility] Comment:Testing performed by : [facility], [address] [place] [phone] Alk phos 93 40 - 130 Units/L [facility] Comment:Testing performed by : [facility], [address] [place] [phone] ALT 13 7 - 55 Units/L [facility] Comment:Testing performed by : [facility], [address] [place] [phone] AST 14 10 - 50 Units/L [facility] Comment:Testing performed by : [facility], [address] [place] [phone] Blood 04/11/2024 10:3 1 AM CDT 04/11/2024 10:33 AM CDT us Katharine Hampton MD LAB BLOOD ORDERABLES Final Result [facility] Department [place] [address] * (ABNORMAL) CBC with auto differential (04/11/2024 10:31 AM CDT) WBC 5.8 3.8 - 9.8 K/cumm Comment:Testing performed by : [facility], [address] [place] [phone] Hgb 12.0(L) 13.8 - 17.2 g/dL [facility] Comment:Testing performed by : [facility], [address] [place], [place] [phone] Hct 35.8(L) 40.7 - 50.3 % [facility] Comment:Testing performed by : [facility], [address] [place], [place] [phone] Plt 213 140 - 440 K/cumm [facility] Comment:Testing performed by : [facility], [address] [place], [place] [phone] MPV 7.7 6.8 - 10.4 fL [facility] Comment:Testing performed by : [place] [address] RBC 3.95(L) 4.50 - 5.70 M/cumm [facility] Comment:Testing performed by : [place] [address] MCV 90.5 80.0 - 97.6 fL [facility] Comment:Testing performed by : [facility], [address] [place], [place] [phone] MCH 30.5 26.7 - 33.7 pg C[facility]ER [facility]J Comment:Testing performed by : [place] [phone] MCHC 33.7 32.7 - 35.5 g/dL [facility] Comment:Testing performed by : [place] [phone] RDW CV 16.6(H) 11.8 - 14.6 % [facility] Comment:Testing performed by : [facility], [address] [place], [place] [phone] NRBC abs 0.00 0.00 - 0.01 K/cumm C[facility]ER [facility] Comment:Testing performed by : [place] [phone] Blood 04/11/2024 10:3 1 AM CDT 04/11/2024 10:33 AM CDT Katharine Hampton MD LAB BLOOD ORDERABLES Final Result [facility] [place] [address] documented in this encounter Visit Diagnoses Diagnosis Pulmonary embolism, unspecified chronicity, unspecified pulmonary embolism type, unspecified whether acute cor pulmonale present (HCC) Lower extremity edema Edema documented in this encounter Care Teams Talent Analyst Relationship Specialty Start Date End Date Rl Medina DO [address] [place] [address] PCP - General 08/09/17 05/25/24 documented as of this encounter
--- OUTSIDE RECORDS SUMMARY | 2024-11-05 19:18 | XMS_ITS | Encounter Summary ---
Author Organization [facility] Healthcare Address [address] [place] [address] Care Team Providers Care Calibration Tester Name Role Phone Rl Medina DO Primary Care Provider [phone] Reason for Visit * Neurology (Routine) - Closed Specialty Diagnoses / Procedures Referred By Contac t Referred To Contact Diagnoses Seizures (HCC) Procedures Ambulatory EEG -[facility] (All Locations) Adri Lester MD Phone: tel: fax: [facility] (All Locations) Referral ID Status Reason Start Date Expiration Date Visits Re quested Visits Authorized [id number] Closed 02/05/2024 03/06/2025 1 1 Encounter Details Date Type Department Care Team (Latest Contact Info) Description 04/09/2024 11:02 AM CDT - 04/09/2024 11:59 PM CDT Hospital Encounter [facility] Neurodiagnostics [address] [place] [address] Madan Haider [place] Discharge Disposition: Discharge to home or self care Social History Tobacco Use Types Packs/Day Years Used Date Smoking Tobacco: Former Cigarettes 1 11 1 969 - 1979 Passive Smoke Exposure: Never Smokeless Tobacco: Never Alcohol Use Standard Drinks/Week Comments Yes 14 (1 standard drink = 0.6 oz pu re alcohol) social [facility] Utilities Answer Date Recorded In the past 12 months has [employer] electric, gas, oil, or water company threatened [...] any clubs o r organizations such as mandaeism groups, unions, fraternal or athletic groups, or [...] on file 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 (All Locations) (04/09/2024 11:05 AM CDT) Anatomical Region Laterality Modality EEG Narrative 04/09/2024 4:21 PM CDT Ambulatory EEG Report Patient Name: Hira Evans [facility] Medical Record Number (MRN): [id number] [facility] Record: [id number] Date of (): 1950 EEG Date: 04/08/2024 [...] 24 channel EEG recording acquired on a [employer] digital ambulatory EEG acquisition system. Scalp electrodes [...] ult documented in this encounter Visit Diagnoses Not on filedocumented in this encounter Care Teams Calibration Tester Relationship Specialty Start Date End Date Rl Medina DO [address] [place] [address] PCP - General 08/09/17 05/25/24 documented as of this encounter
--- OUTSIDE RECORDS SUMMARY | 2024-11-05 19:18 | XMS_ITS | Encounter Summary ---
Author Organization [facility] Address [address] [place] [address] Phone Care Team Providers Care Photoengraving Retoucher Name Role Phone Rl Medina DO Primary Care Provider [phone] Encounter Details Date Type Department Care Team (Late st Contact Info) Description 04/15/2024 Telephone [facility] Epilepsy [address] [facility] 6th [place] [address] [place] [phone] Jose Elias Osorio MD PhD [address] [place] [address] Social History Tobacco Use Types Packs/Day Years Used Date Smoking Tobacco: Former Cigarettes 1 11 969 - 1979 Passive Smoke Exposure: Never Smokeless Tobacco: Never Alcohol Use Standard Drinks/Week Comments Yes 14 (1 standard drink = 0.6 oz pu re alcohol) social C Utilities Answer Date Recorded In the past 12 months has [employer], gas, oil, or water [employer] threatened to shut off services in your [...] week 12/27/2023 How often do you attend [facility] or catholic services? 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 THEN take 500 at night only for 2 weeks. Then stop Keppra. Call in 2 weeks with an update, call [facility]MO if Hira has a seizure. 84 tablet 04/15/2024 4 documented in this encounter Miscellaneous Notes * Telephone Encounter - Fay Johnson RN - 04/17/2024 1:53 PM CDT Prescription for LEV faxed to [facility]. * Addendum Note - Fay Johnson RN - 04/15/2024 3:42 PM CDTAddended by: FAY JOHNSON on: 04/15/2024 03:42 PM Modules accepted: Orders * Telephone Encounter - Fay Johnson RN - 04/15/2024 3:40 PM CDT Images from the original note were not included. Jose Elias Osorio MD PhD to Ut 04/15/24 2:58 PM LEV 500/1000 for 2 weeks then 500 bid for 2 weeks then 500 at HS for 2 weeks then stop and call after another 2 weeks Called and updated Glenna with Dr. Osorio's recommendations. Prescription sent to [facility]. Will fax order to Glenna at [phone] * Telephone Encounter - Fay Johnson RN - 04/15/2024 2:52 PM CDT Called Glenna (nurse at [facility]) at [facility]. Updated her on the Ambulatory EEG results. Hira and his want to know how to proceed with decreasing his LEV. Plan from 02/05/24 appointment: Preliminarily, we will plan to taper his Keppra about 6 months after his provoked seizure, which will be in mid March. We will obtain a 24 hour ambulatory EEG prior to starting the taper to stratify his risk of seizure recurrence. We will also allow some time to pass from his upcoming surgical procedure. Plan: Continue Keppra 1g BID Ambulatory 24 hour EEG in mid March Thank you, Fay * Telephone Encounter - Fay Johnson RN - 04/15/2024 2:40 PM CDT ----- Message from Jose Elias Osorio MD PhD sent at 04/15/2024 2:30 PM CDT ----- Regarding: FW: Ambulatory EEG Report EEG was negative ----- Message ----- From: Adri Lester MD Sent: 04/15/2024 2:23 PM CDT To: Jose Elias Osorio MD PhD Subject: FW: Ambulatory EEG Report ----- Message ----- From: Sydney Kelly Sent: 04/15/2024 2:22 PM CDT To: Adri Lester MD Subject: Ambulatory EEG Report Hi Glenna Dickey with the place patient is staying wants to know the Ambulatory EEG results and has questions about his medication, if you could call Glenna at [phone] or [phone] Thank You, Sydney STOCKTON documented in this encounter Plan of Treatment Not on file documented as of this encounter Visit Diagnoses Not on filedocumented in this encounter Discontinued Medications Medication Sig Discontinue Reason Start Date End Da te levETIRAcetam (KEPPRA) 1,000 mg tablet Take 1 tablet (1,000 mg total) by mouth 2 (two) times a day Reorder 12/10/2023 04/15/2024 documented as of this encounter Care Teams Photoengraving Retoucher Relationship Specialty Start Date End Date Rl Medina DO [address] [place] [address] PCP - General 08/09/17 05/25/24 documented as of this encounter
--- OUTSIDE RECORDS SUMMARY | 2024-11-05 19:18 | XMS_ITS | Encounter Summary ---
Author Organization [facility] Healthcare Address [address] [place] [address] Care Team Providers Care Application Trainer Name Role Phone No, Physician Primary Care Provider [phone] Reason for Referral * Diagnostic Imaging (Routine) - Closed Specialty Diagnoses / Procedures Referred By Manisha gale Referred To Contact Diagnoses Nephrolithiasis Procedures US Kidney Complete Temo Mcintosh MD [address] [facility] [place] [address] Phone: tel: fax: [address] [address] Referral ID Status Reason Start Date Expiration Date Visits Re quested Visits Authorized [id number] Closed 06/06/2024 07/06/2025 1 1 Reason for Visit * Auth/Cert (Routine) Specialty Diagnoses / Procedures Referred By Manisha gale Referred To Contact Diagnoses Nephrolithiasis Nephrolithiasis [N20.0] Procedures NH CYSTOURETHROSCOPY CYSTOSCOPY REMOVAL STENT - URETERAL EXCHANGE STENT - URETERAL Referral ID Status Reason Start Date Expiration Date Visits Re quested Visits Authorized [id number] 1 1 Encounter Details Date Type Department Care Team (Latest Contact Info) Description 06/06/2024 7:59 AM CDT - 06/06/2024 12:20 PM CDT Hospital Encounter [facility] Operating Room [address] [place] [phone] Temo Mcintosh MD [address] [place] [address] Nephrolithiasis (Primary Dx) Discharge Disposition: Discharge to home or self care Social History Tobacco Use Types Packs/Day Years Used Date Smoking Tobacco: Former Cigarettes 1 11 1 969 - 1979 Passive Smoke Exposure: Never Smokeless Tobacco: Never Alcohol Use Standard Drinks/Week Comments Yes 14 (1 standard drink = 0.6 oz pu re alcohol) social [facility] Utilities Answer Date Recorded In the past 12 months has [employer] [place], gas, oil, or water [employer] threatened to shut off services in your [...] any clubs o r organizations such as baptist groups, unions, fraternal or athletic groups, or [...] on file 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 Medications: You may take abmp-mxs-zzdzibg stool softener to prevent constipation. Take all [...] them in 2-3 business days, please call [phone] to schedule your appointment. * Attachments The following attachments cannot be sent through Care Everywhere. * [facility] PATHWAY TO EXCELLENT CARE AFTER SURGERY documented [...] ound healing Take 1 tablet by mouth lap regulator before breakfast ondansetron ODT (ZOFRAN-ODT) 4 mg [...] 1 tablet (20 mEq total) by mouth lap regulator before breakfast 4 senna-docusate (PERICOLACE) 8.6-50 mg [...] Preoperative Evaluation Record Evaluation type/location: TPAP from [facility] Planned procedure site: [facility] PVT OR (Pod 1) Date: 06/02/24 NOTE: [...] on Xarelto. Spoke with Glenna MACKEY at [facility] Pt requires Pia lift d/t LE Paralysis [...] CHEST CT 04/11/2024- Multivessel coronary artery disease.); [place] ; CABG ;atrial fibrillation; pacemaker/ICD; negative for [...] 04/11/2024) Pertinent negatives: liver disease Comments: F/b [facility] Hematology Gastrointestinal + GERD - on daily [...] in a spinal injury cord unit at [facility] Given his epidural hematoma, he had an IVC filter placed November 09, 2023. 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 He has had no complications on anticoagulant therapy since resuming February 2024. Has since seen [facility] 04/11/2024- and underwent BLE US 04/11 - [...] Please call the CPAP chart room clinician [phone]) to revisit risk assessment, with any questions, [...] significant findings Patient instructions were axed to [facility] Spoke with NARENDRA Manzanares.# [phone] [facility] Complete Preoperative evaluation performed by Linda Thompson NP on 06/02/24 at 11:03 AM . Patient Active Problem List Diagnosis Date Noted Nephrolithiasis 12/25/2023 DVT (deep venous thrombosis) (CMS/HCC) (HCC) 11/29/2023 Anemia 11/29/2023 Paraspinal hematoma 11/29/2023 Hyponatremia 11/29/2023 Elevated transaminase level 11/29/2023 Lower extremity edema 11/29/2023 Scrotal swelling 11/29/2023 Seizure ([facility]) 11/29/2023 Prediabetes 11/29/2023 Kidney stone 11/09/2023 Paralysis of both lower limbs (CMS/HCC) (HCC) 11/07/2023 Pulmonary embolism ([facility]) 10/26/2023 S/P spinal fusion 10/23/2023 Cardiac arrest ([facility]) 10/23/2023 Left perinephric collection, 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 10/15/2023 Ureteral colic 10/13/2023 UTI (urinary tract infection) 10/13/2023 Hydronephrosis with urinary obstruction due to renal calculus 10/12/2023 Lumbar radiculopathy 10/08/2023 Gross hematuria 10/18/2022 Bladder neck obstruction 10/17/2022 Lesion of urinary bladder 10/17/2022 Prostate cancer ([facility]) 10/17/2022 HTN (hypertension) 10/10/2021 Risk factors for obstructive sleep apnea 10/10/2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 Presence of right artificial knee joint 10/25/2018 Primary osteoarthritis of left knee 10/25/2018 Localized adiposity 07/17/2018 Knee pain 10/24/2016 Past Medical History: Diagnosis Date Allergic rhinitis Arthritis OA Cancer (CMS/[facility]) (HCC) prostate and melonomia Cardiac complication 10/23/2023 [...] prostate cancer Pneumonia Pulmonary embolism ([facility]) Seasonal allergies Past Surgical History: Procedure [...] 12/26/2023 PROSTATECTOMY 2009 REPLACEMENT TOTAL KNEE Right 2013 REPLACEMENT TOTAL KNEE Left 10/17/2021 REVISION TOTAL KNEE ARTHROPLASTY Right 09/30/2019 THORACIC LAMINECTOMY 11/08/2023 T5-L5, and laminectomy posterior lumbar, repair dural tear VASECTOMY over 30 years ago No Known Allergies Med List Status: Nurse Complete Set By: Chino Ludwig RN at 06/02/2024 8:47 AM Status Comment 06/02/2024 8:47 AM Med list accurate as provided by [facility]. Med list scanned into media Taking? Last [...] taking differently: Take 1 tablet by mouth lap regulator before breakfast tamsulosin (FLOMAX) 0.4 mg extended [...] the case by atraumatically introducing a 22 Dutch rigid cystoscope. Of note, there was glandular traumatic hypospadias given his chronically indwelling Harris catheter. Upon entry into thebladder we noted intense friability. The indwelling stent could be seen emanating from the left ureteral orifice. There was light oozing from the bladder even with gentle manipulation of the scope. Alongside the indwelling stent, a open-ended 5 Dutch catheter was introduced with the assistance of [...] were no immediate complications. A new 16 Dutch Harris catheter was introduced with 10 cc [...] Preoperative Assessment and Planning CPAP Clinic Location: [facility] The night before your surgery: * Do [...] remove nail coverings, artificial nails and nail french prior to the day of surgery. You should leave your valuables and any jewelry at home. No metal or piercings are allowed in the operating room. You should bring your insurance card, a photo ID (example: Manager Forensic's License) and a method of payment for [...] Chart. If you are having surgery at [facility], please arrive on the day of surgery [...] Pathway to Excellent Care by the followinglink: [email or web address] How To Prepare Your Skin For Surgery [...] Remove nail coverings, artificial nails and nail french. Place clean linens on your bed the [...] questions, please call the CPAP Staff at [phone], Sunday-Sunday 8am-4:30pm. All patients should read the below section: Information on [facility]: Please view [email or web address] (Patient & Visitor Information) for additional details regarding Advanced Directive forms, AWARE, directions, parking information, lodging, Internet access, dining and more. Information on [facility] or [facility] ([facility]): Please view [email or web address] (Patient and Visitor Information) for parking/directions and more. For MyChart information, to activate account or password recovery, please go to [email or web address] or call [phone] (toll-free: [phone]), Sun- Sunday 8am-5pm. Information for Suicide Prevention: National Suicide Prevention Lifeline (9-006- 154-DTNB (2800)) or call or text 136. Chat resources: [email or web address]. Surgery Times: For patients having surgery @ [facility] or [facility] ([facility]), if your surgeon's office has not notified you of your surgery time by NOON THE BUSINESS DAY BEFORE your surgery, please call [phone] and ask for your surgeon's office Dr. Mcintosh [facility] for Preoperative Assessment & Planning (CPAP) does not provide arrival times for the day of surgery or provide the duration of surgery. This information is provided by your surgeon'soffice or by the center where you are having surgery. We appreciate your understanding. * Perioperative Nursing Note - Chino Ludwig RN - 06/02/2024 8:48 AM CDT Center for Preoperative Assessment and Planning Perioperative Nursing Note Telephone Preoperative Evaluation ([facility]) - TELEPHONE ONLY, NO PHYSICAL EXAM Date: 06/02/24 This assessment was completed with [facility] There were no vitals filed [...] multivitamin tablet Take 1 tablet by mouth lap regulator before breakfast ondansetron ODT (ZOFRAN-ODT) 4 mg [...] 1 tablet (20 mEq total) by mouth lap regulator before breakfast senna-docusate (PERICOLACE) 8.6-50 mg Take 1 tablet by mouth nightly (Patient taking differently: Take 1 tablet by mouth lap regulator before breakfast) tamsulosin (FLOMAX) 0.4 mg extended [...] Radiopaque Preblend Cement Bone Tobramycin - S0- [id number] - Implanted (Right) Knee Inventory item: [employer] Simplex P Full Dose Radiopaque Preblend Cement Bone Shlnvzfywz3149-7-627 Model/Cat number: [id number] Serial number: 0 Marketing Programs Specialist: [employer] Lot number: [id number] Device identifier: [id number] Device identifier type: GS1 As of 09/30/2019 Status: Implanted Other - see comments [employer]o [id number] Kandace II 15mm Constrain Knee 5-6 Insert Articular Uhmwpe- S0 - [id number] - Implanted (Right) Knee Inventory item: [employer] Kandace Ii 15mm Constrain Knee 5-6 Insert ArticularUhmwpe [id number] Model/Cat number: [id number] Serial number: 0 Marketing Programs Specialist: [employer] Lot number: [id number] As of 09/30/2019 Status: Implanted [employer] [id number] Legion 10mm Screw Knee 6 Wedge Femoral - S0 - [id number] -Implanted (Right) Knee Inventory item: [employer]ORTHO Legion 10mm Screw Knee 6 Wedge Femoral [id number] Model/Cat number: [id number] Serial number: 0 Marketing Programs Specialist: [employer] Device identifier: [id number] Device identifier type: [facility] As of 09/30/2019 Status: Implanted [employer]tho [id number] Legion Constrain Knee Right 6 Component Femoral Oxinium - S0 - [id number] - Implanted (Right) Knee Inventory item: [employer]ICH[employer]ORTHO Legion Constrain Knee Right 6 Component Femoral Oxinium [id number] Model/Cat number: [id number] Serial number: 0 Marketing Programs Specialist: [employer] Lot number: [id number] As of 09/30/2019 Status: Implanted [employer]o 06753453 Legion 5mm Alcon Step Knee Right Medial Left Lateral 5-6 Wedge - S0 - [id number] - Implanted (Right) Knee Inventory item: [employer] Legion 5mm Alcon Step Knee Right Medial Left Lateral5-6 Wedge [id number] Model/Cat number: [id number] Serial number: 0 Marketing Programs Specialist: [employer] Device identifier: [id number] Device identifier type: [facility] As of 09/30/2019 Status: Implanted [employer]tho [id number] Legion 15mm 160mm Press Fit Knee Stem Femoral - S0 - [id number] - Implanted (Right) Knee Inventory item: [employer] Legion 15mm 160mm Press Fit Knee Stem Femoral [id number] Model/Cat number: [id number] Serial number: 0 Marketing Programs Specialist: [employer] Lot number: [id number] As of 09/30/2019 Status: Implanted [employer]tho 63558599 Legion 10mm Screw Knee 6 Wedge Femoral - S0 - [id number] -Implanted (Right) Knee Inventory item: [employer] Legion 10mm Screw Knee 6 Wedge Femoral [id number] Model/Cat number: [id number] Serial number: 0 Marketing Programs Specialist: [employer] Lot number: [id number] As of 09/30/2019 Status: Implanted [employer]tho [id number] Legion Revision Knee Right 5 Baseplate Tibial - S0 - [id number] - Implanted (Right) Knee Inventory item: [employer] Legion Revision Knee Right 5 Baseplate Tibial [id number] Model/Cat number: [id number] Serial number: 0 Marketing Programs Specialist: [employer] Lot number: [id number] Device identifier: [id number] Device identifier type: GS1 As of 09/30/2019 Status: Implanted [employer]Ortho [id number] Legion 15mm 160mm Press Fit Knee Stem Femoral - S0 - [id number] - Implanted (Right) Knee Inventory item: [employer]ICH[employer]ORTHO Legion 15mm 160mm Press Fit Knee Stem Femoral [id number] Model/Cat number: [id number] Serial number: 0 Marketing Programs Specialist: [employer] Lot number: [id number] Device identifier: [id number] Device identifier type: GS1 As of 09/30/2019 Status: Implanted [employer] 5517-F-501 Triathlon Cruciate Retain Bead Knee Left 5 Component Femoral Pa - Sn/A - [id number] - Implanted (Left) Knee Inventory item: [employer] Triathlon Cruciate Retain Bead Knee Left 5 Component Femoral Pa 5517-F-501 Model/Cat number: [id number] Serial number: N/A Marketing Programs Specialist: [employer] Lot number: [id number] Device identifier: [id number] Device identifier type: GS1 As of 10/17/2021 Status: Implanted [employer] 5536-B-600 Triathlon Knee 6 Baseplate Tibial Tritanium - Sn/A - [id number] - Implanted (Left) Knee Inventory item: [employer] Triathlon Knee 6 Baseplate Tibial Tritanium 5536-B-600 Model/Cat number: [id number] Serial number: N/A Marketing Programs Specialist: [employer] Lot number: [id number] Device identifier: [id number] Device identifier type: GS1 As of 10/17/2021 Status: Implanted [employer] 7924-T-135-E Insert Tibial Triathlon 6 H10mm Knee Bearing Condylar Stabilize Sterile - Sn/A - [id number] - Implanted (Left) Knee Inventory item: [employer] Insert Tibial Triathlon 6 H10mm Knee Bearing Condylar Stabilize Sterile 1535-O-429-E Model/Cat number: [id number] Serial number: N/A Marketing Programs Specialist: [employer] Lot number: [id number] Device identifier: [id number] Device identifier type: GS1 As of 10/17/2021 Status: Implanted Stent [employer] [id number] 6fr 26cm 145cm Radiopaque Positioner Filiform Flexible Tip - [id number] - Implanted (Left) Ureter Inventory item: [employer] [id number] 6fr 26cm 145cm Radiopaque Positioner Filiform Flexible Tip Model/Cat number: [id number] Marketing Programs Specialist: [employer] Lot number: [id number] Device identifier: [id number] Device identifier type: GS1 As of 02/27/2024 Status: Implanted Type Not Specified [employer] 6197-9-010 Simplex P Full Dose Radiopaque Preblend Cement Bone Tobramycin - [id number] - Implanted (Right) Knee Inventory item: [employer] Simplex P Full Dose Radiopaque Preblend Cement Bone Wjtmanvvsl8515-1-312 Model/Cat number: [id number] Marketing Programs Specialist: [employer] Device identifier: [id number] Device identifier type: GS1 As of 09/30/2019 Status: Implanted [employer] Crushed Chip Frozen Graft 30ml Bone Cancellous [id number] - [id number] - Implanted Spine Lumbar Inventory item: [employer] Crushed Chip Frozen Graft 30ml Bone Cancellous [id number] Model/Cat number: [id number] Marketing Programs Specialist: [employer] Lot number: [id number] As of 10/23/2023 Status: Implanted [employer] Allograft Bone Putty 2.5cc - [id number] - Implanted Spine Lumbar Inventory item: [employer] Allograft Bone Putty 2.5CC Model/Cat number: [id number] Marketing Programs Specialist: [employer] Lot number: [id number] Device identifier: [id number] Device identifier type: GS1 As of 10/23/2023 Status: Implanted [employer] Creo Od7.5 Mm L55 Mm Thread Polyaxial Spine Screw Bone Titanium 5146.1757 - [id number] - Implanted Spine Lumbar Inventory item: [employer] Cre[employer] Od7.5 Mm L55 Mm Thread Polyaxial Spine Screw Bone Titanium 5146.1757 Model/Cat number: [id number] Marketing Programs Specialist: [employer] As of 10/23/2023 Status: Implanted [employer] Creo Od7.5 Mm L50 Mm Thread Polyaxial Spine Screw Bone Titanium 5146.1752 - [id number] - Implanted Spine Lumbar Inventory item: [employer] Creo Od7.5 Mm L50 Mm Thread Polyaxial Spine Screw Bone Titanium 5146.1752 Model/Cat number: [id number] Marketing Programs Specialist: [employer] As of 10/23/2023 Status: Implanted [employer] Creo Thread Spinal Cap Locking Nonsterile 1119.0010 - [id number] - Implanted Spine Lumbar Inventory item: [employer] Thread Spinal Cap Locking Nonsterile 1119.0010 Model/Cat number: [id number] Marketing Programs Specialist: [employer] As of 10/23/2023 Status: Implanted [employer] Implant Spinal Sable 42m45mv 7-14mm 15 Deg 1172.2121s - [id number] - Implanted Spine Lumbar Inventory item: [employer] Implant Spinal Sable 49t66qx 7-14mm 15 Deg 1172.2121S Model/Cat number: [id number] Marketing Programs Specialist: [employer] As of 10/23/2023 Status: Implanted [employer] Creo 5.5mm 45mm Curve Daniel Spinal Titanium 1119.7045 - [id number] - Implanted Spine Lumbar Inventory item: [employer] Creo 5.5mm 45mm Curve Daniel Spinal Titanium 1119.7045 Model/Cat number: [id number] Marketing Programs Specialist: Hail [employer] As of 10/23/2023 Status: Implanted [employer] Rex Arevalo Navalign 30mm 7fr 50mm 65cm Introducer Sheath [id number] - [id number] -Implanted Inventory item: [employer] Rex Melendezip Navalign 30mm 7fr 50mm 65cm Introducer Sheath [id number]/Cat number: [id number] Marketing Programs Specialist: [employer] Lot number: [id number] As of 11/09/2023 Status: Implanted SKIN Wound (LDAs) Type of Wound (LDA): (none) SCREENINGS Joni index score: 60 NUTRITION PATIENT CARE PLANNING Advance Directives (For Healthcare) Have you reviewed your Advance Directive and is it valid for this stay?: Yes Advance Directive: Patient has advance directive, copy in chart Assistive Devices/DME: Eyeglasses, Manual wheelchair Hearing - Right Ear: Functional Hearing - Left Ear: Functional Discharge Planning Type of Residence: [facility] Care Facility Name: [facility] Living Arrangements: Other (Comment) (Assisted Living) Support Systems: Spouse/significant other, Home care staff Patient expects to be discharged to:: Assisted Living RN PARALEGAL NO ADDITIONAL COMMENTS/ FOLLOW UP: Medlist only [...] signed by: Carlos Manuel Mishra M.D. Temo Mcintosh MD [facility] US PROCEDURES Final Result * FL Fluoroscopy < 1 Hour (06/06/2024 10:22 AM CDT) Narrative [facility] - 06/06/2024 10:22 AM CDT The images from this study are not interpreted by Radiology. ??Please refer to the physician's procedure / OR operative note. Temo Mcintosh MD [facility] FLUOROSCOPY PROCEDUR ES Final Result [facility] documented [...] as primary IV, not intended for KVO. Lactated Ringer's (LR) infusion 30 mL/hr, intravenous, [...] size. Flush before and after each use. documented in this encounter Discontinued Medications Medication [...] 12.5 mg tablet Therapy completed 01/21/2024 06/02/2024 vqtkfloy-ljiqhkpzg-jxvtb [facility] 7-7-1.5 gram powder in packetIndications:wound Take 1 [...] irrigation for bladder)1014 (Given - Provider: Temo Mcintosh MD - Comment: irrigation for bladder) documented [...] HYDROmorphone (DILAUDID) injection 0.4 mg 1 06/06/2024 iothalamate meglumine (CONRA Y) 60 % injection 1 06/06/2024 naloxone (NARCAN) 0.4 mg/mL injection 0.04-0.4 mg 1 06/06/2024 ondansetron (ZOFRAN) injection 4 mg 1 06/06 sodium chloride 0.9% flush 0.5-20 mL 1 12/2023 sodium chloride 0.9% irrigation 1 4 Discharge Count Last Ordered Date First Orde red Date DISCHARGE PATIENT 1 06/06/2024 documented in this encounter Care Teams Application Trainer Relationship Specialty Start Date End Date No, Physician PCP - General 05/26/24 documented as of this encounter
--- OUTSIDE RECORDS SUMMARY | 2024-11-05 19:19 | XMS_ITS | Encounter Summary ---
Author Organization [facility] Address [address] [place] [address] Phone Care Team Providers Care Pillowcase Cutter Name Role Phone Rl Medina DO Primary Care Provider [phone] Reason for Referral * Diagnostic Imaging (Routine) - Authorized Specialty Diagnoses / Procedures Referred By Manisha t Referred To Contact Diagnoses S/P laminectomy with spinal fusion Procedures XR Spine Cervical 2 or 3 Views Marcial Vu Jr., MD [address] [place] [address] Phone: tel: fax: External Order Referral ID Status Reason Start Date Expiration Date V isits Requested Visits Authorized [id number] Authorized 01/02/2024 01/31/2025 1 1 ING INSPECTOR Reason for Visit * Reason Onset Date Comments Appointment 12/27/2023 Treatment Plan Update 12/27/2023 Encounter Details Date Type Department Care Team (Late st Contact Info) Description 12/27/2023 Telephone [facility] Orthopaedic Surgery [address] 1[address] [place] [address] Marcial Vu Jr., MD [address] [place] [address] Appointment; Treatment Plan Update Social History Tobacco Use Types Packs/Day Years Used Date Smoking Tobacco: Former Cigarettes 1 09 05 969 1979 Passive Smoke Exposure: Never Smokeless Tobacco: Never Alcohol Use Standard Drinks/Week Comments Yes 14 (1 standard drink = 0.6 oz pu re alcohol) social [facility] Utilities Answer Date Recorded In the past [...] often do you attend chur ch or congregational services? Never 12/27/2023 Do you belong to [...] alcohol? 4 or more times a week 12/25/2023 Q2: How many drinks containi ng alcohol do you have on a typical day when you are drinking? 1 or 2 Q3: How often do you have si x or more drinks on one occasion? Less than monthly 12/25/2023 Overall Financial Resource Strain (CARDIA) Answe r [...] making you feel afraid or unsafe? 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 Vu. Provided Ze with appt details. She will call me back if there are any issues/ concerns prior to Sunday. Contacted Val, pt's , and left with pt's appt details. ING INSPECTOR * Telephone Encounter - Galina Franco, NARENDRA - 01/03/2024 4:17 PM CST Received call from Ze, case supervisor at [facility] where pt currently resides. Ze requesting a call back to schedule pt for a clinic appt. I returned Ze's call this afternoon since Iwas in clinic today. Left Ze stating I will be at my desk tomorrow and requested she call back then. Provided my number in VM.Will continue to follow up with CM. ING INSPECTOR * Addendum Note - Galina Franco RN - 01/02/2024 10:12 AM CSTAddended by: GALINA FRANCO on: 01/02/2024 10:12 AM Modules accepted: Orders ING INSPECTOR * Telephone Encounter - Galina Franco RN - 01/02/2024 9:36 AM CST Spoke with NARENDRA Allen at [facility] where pt currently resides. Tiffany stated that facility is able to obtain x-rays at facility and then can send to our office for review. Tiffany requested I fax over XR orders and they will send us x-rays once completed. XRs faxed to [phone]. Contacted pt;s , Val, to update her on plan. Informed Val I will follow with the facility again if I do not hear from them within the next few days. Will then follow up with facility and Val once images are received and reviewed by Dr. Vu. Val to call back in the meantime with additional questions or concerns. ING INSPECTOR * Telephone Encounter - Galina Franco RN - 12/28/2023 4:24 PM CST Left for [facility], pt's new facility, requesting a call back to discuss possibility of pt obtaining spine x-rays at/ near their facility and have them sent to our office for review. Provided my direct call back number. Will follow up again next week. ING INSPECTOR * Telephone Encounter - Galina Franco RN - 12/27/2023 3:16 PM CST Pt's , Val, contacted me requesting to cancel pt's clinic appt with Dr. Vu on Sunday. Ptis being discharged from [facility] today to [facility] in [facility]. Val stated that pt will need to be transported via ambulance to clinic appt on Sunday, which will require a lot of time, money and administrative effort for Val and Hira. The appointment on Sunday also is jhony quick turn around time after pt's discharge to a new facility today. Val is requesting that pt's appt on Sunday be cancelled and be rescheduled to a later date when pt will be coming back to [facility] for follow ups with other specialists. Val states that pt has been making great progress in therapy at [facility] and is close to successfully completing transferred. Pt will continue to receive PT/OTat his new facility. Informed Val that I will cancel pt's appt with Dr. Vu on Sunday per herrequest. I will contact [facility] tomorrow to see if [facility] can obtain spine x-rays at their facility, or locally, and then they can be sent to our office for Dr. Vu to review. I will contac t Val again once I have a plan made with [facility], which should be within the next few days. ToldCyndmae I will also update Dr. Vu on plan and call her back if he has any additional questions or concerns. Pt is continuing to wear TLSO when OOB and will continue to do so until instructed otherwise by Dr. Vu. Val in agreement with plan. ING INSPECTOR documented in this encounter Plan of Treatment Scheduled Orders Name Type Priority Associated Diagnoses Orde r Schedule XR Spine Cervical 2 or 3 Views Imaging Schedule Routine, Read Routine (OP Routine) S/P laminectomy with spinal fusion Expected: 01/02/2024, Expires: 01/02/2025 documented as of this encounter Visit Diagnoses Diagnosis S/P laminectomy with spinal fusion- Primary Arthrodesis status documented in this encounter Care Teams Pillowcase Cutter Relationship Specialty Start Date End Date Rl Medina DO [address] [place] [address] PCP - General 08/09/17 05/25/24 documented as of this encounter
--- OUTSIDE RECORDS SUMMARY | 2024-11-05 19:19 | XMS_ITS | Encounter Summary ---
Author Organization [facility] Address [address] [place] [address] Phone Care Team Providers Care Automobile Or Truck Rental Dispatcher Name Role Phone Rl Medina DO Primary Care Provider Encounter Details Date Type Department Care Team (Late st Contact Info) Description 04/03/2024 Telephone [facility] Hematology [address] [address] [facility] 7th [place] [address] [place] [address] Mary Almaraz Social History Tobacco Use Types Packs/Day Years Used Date Smoking Tobacco: Former Cigarettes 1 11 1 969 - 1979 Passive Smoke Exposure: Never Smokeless Tobacco: Never Alcohol Use Standard Drinks/Week Comments Yes 14 (1 standard drink = 0.6 oz pu re alcohol) social [facility] Utilities Answer Date Recorded In the past 12 months has [employer], gas, oil, or water [employer] threatened to shut off services in your [...] often do you attend chur ch or anabaptist services? 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 Hampton for next Sunday, 04/11 at 9:00AM at the [facility] with labs following. documented in this encounter Plan of Treatment Not on file documented as of this encounter Visit Diagnoses Not on filedocumented in this encounter Care Teams Automobile Or Truck Rental Dispatcher Relationship Specialty Start Date End Date Rl Medina DO [address] [place] [address] PCP - General 08/09/17 05/25/24 documented as of this encounter
--- OUTSIDE RECORDS SUMMARY | 2024-11-05 19:19 | XMS_ITS | Encounter Summary ---
Author Organization [facility] Address [address] [place] [address] Phone Care Team Providers Care Director Private Name Role Phone Rl Medina DO Primary Care Provider Encounter Details Date Type Department Care Team (Late st Contact Info) Description 01/10/2024 Orders Only [facility] Neurosurgery [address] [facility] [address] [place] [address] Carrie Jerez, CARLA [address] [place], [place] [id number] Subdural hematoma (HCC) (Primary Dx); Seizures (HCC) Social History Tobacco Use Types Packs/Day Years Used Date Smoking Tobacco: Former Cigarettes 1 09 05 969 - 1979 Passive Smoke Exposure: Never Smokeless Tobacco: Never Alcohol Use Standard Drinks/Week Comments Yes 14 (1 standard drink = 0.6 oz pu re alcohol) social [facility] Utilities Answer Date Recorded In the past 12 months has [employer], gas, oil, or water company threatened to [...] No 12/27/2023 Housing Stability Vital Sign Answer Shaolm e Recorded In the last 12 months, [...] on file 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 RECYCLABLE MATERIALS SORTER Gender Identity Not on file Sexual Orientation Not on file 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
--- OUTSIDE RECORDS SUMMARY | 2024-11-05 19:19 | XMS_ITS | Encounter Summary ---
Author Organization [facility] Address [address] [place] [address] Care Team Providers Care Sign Painter Name Role Phone Rl Medina DO Primary Care Provider Reason for Visit * Auth/Cert (Routine) Specialty Diagnoses / Procedures Referred By Contac t Referred To Contact Diagnoses Kidney stone Kidney stone [N20.0] Procedures WA CYSTOURETHROSCOPY CYSTOSCOPY PYELOGRAM - RETROGRADE URETEROSCOPY LITHOTRIPSY - LASER EXCHANGE STENT - URETERAL Referral ID Status Reason Start Date Expiration Date Visits Re quested Visits Authorized [id number] 1 1 Encounter Details Date Type Department Care Team (Latest Contact Info) Description 12/25/2023 5:45 AM MATERIAL DISPOSITION INSPECTOR - 12/27/2023 3:13 PM MATERIAL DISPOSITION INSPECTOR Hospital Encounter [facility] [address] [place] [address] Temo Mcintosh MD [address] [place] [address] Nephrolithiasis (Primary Dx) Discharge Disposition: Discharge to SNF Social History Tobacco Use Types Packs/Day Years Used Date Smoking Tobacco: Former Cigarettes 1 11 96 - 1979 Passive Smoke Exposure: Never Smokeless Tobacco: Never Alcohol Use Standard Drinks/Week Comments Yes 14 (1 standard drink = 0.6 oz pu re alcohol) social C Utilities Answer Date Recorded In the past 12 months has [employer], gas, oil, or water [employer] threatened to shut off services in your [...] often do you attend chur ch or lutheran services? 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 Not on file Not on file Not on file documented as of this encounter Last Filed Vital Signs Vital Sign Reading Time Taken Comments Blood Pressure 116/66 12/27/2023 11:40 AM MATERIAL DISPOSITION INSPECTOR Pulse 65 12/27/2023 11:40 AM MATERIAL DISPOSITION INSPECTOR Temperature 37.3 ??C (99.1 ??F) 12/27/2023 11:[address] Respiratory Rate 16 12/27/2023 4:25 AM MATERIAL DISPOSITION INSPECTOR Oxygen Saturation 99% 12/27/2023 11:40 AM MATERIAL DISPOSITION INSPECTOR Inhaled Oxygen Concentration - - Weight 90.7 kg (200 lb) 12/11/2023 5:08 PM MATERIAL DISPOSITION INSPECTOR Height 172.7 cm (5' 8 ) 12/25/2023 10:25 AM MATERIAL DISPOSITION INSPECTOR Body Mass Index 30.41 12/24/2023 1:58 PM MATERIAL DISPOSITION INSPECTOR documented in this encounter Discharge Summaries * Angela Paz MD - 12/27/2023 11:39 AM CST Inpatient Discharge Summary BRIEF OVERVIEW Admitting Provider: Temo Mcintosh MD Discharge Provider: Temo Mcintosh MD Primary Care Physician at Discharge: Rl Medina DO [phone] Admission Date: 12/25/2023 Discharge Date: 12/27/2023 Admission Location: [facility] Problems/Diagnoses: Principal Problem: Kidney stone Active Problems: Nephrolithiasis Resolved Problems: No resolved hospital problems. 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 IR consulted for placement of nephrostomy tube or antegrade stent. He initially presented with a complex UTI in 10/2023, requiring ureteral stentand nephrostomy and developed a perinephric hematoma post-operatively. He underwent staged ureteroscopy most recently with stone extraction on 12/25. 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 His indwelling left ureteral stent was removed during the procedure. A guidewire could not traverse a mid left ureteral stricture. Follow up CT urogram demonstrated mild left hydroureteronephrosis with a mid ureteral stricture and resolving left renal subcapsular collection He was admitted to the urology floor after stabilization in the PACU. IV fluids for hydration, IV antibiotics given, vital signs closely monitored. Pain controlled with multimodal agents. Shook catheter in place draining camilo urine. Allowed a regular diet. POD#1 Patient underwent IR PCN placement (L side) for decompression and did well post-procedure. Shook catheter removed. Patient is incontinent of urine at baseline. Patient was tolerating regular diet well. Non-ambulatory at baseline. Pain controlled on oral agents. The patient was deemed to be medically stable for discharge from the hospital on 12/27/2023 and was in agreement with the plan to discharge back to his facility. The patient will follow up with Temo Mcintosh MD for definitive treatment using the antegrade access placed by IR. IR follow up has been arranged. Temo Mcintosh MD's office will call the patient to schedule follow up, this has been tasked to the RMA. Strict return precautions were provided and good understanding was confirmed. Active Issues Requiring Follow-up: IR follow up for drain care, plan to change PCN And possibly internalize in 6-8 weeks per post-procedure note Urology follow up pending IR follow up, tasked for appointment to RMA Test Results Pending at Discharge: Operative Procedures Performed: Procedure(s): CYSTOSCOPY PYELOGRAM - RETROGRADE URETEROSCOPY Stone extraction Other Procedures: L PCN placement by IR on 12/26/2023 Pertinent Test Results: IR Percutaneous Nephrostomy Left Result Date: 12/26/2023 Successful left 10-Wallisian percutaneous nephrostomy tube placement. PLAN: Patient needs to have followup after 6-8 weeks for catheter exchange or internalization or possible removal if no definitive surgical plan is made in the interim. Dictated by: Dennis Albarado MD The radiology attending physician has personally reviewed this study, and had reviewed and/or edited this written report and agreeswith it. Electronically signed by: Cici Romero MD CT Urogram W 3D Addendum Date: 12/26/2023 When comparing to the retrograde pyelogram 10/18/2023, the area of stricture and tortuosity in the mid left ureter is unchanged in appearance compared to CT urographic findings on this examination. The area of stricture is best seen on coronal images, series 11 image 48 through 51. Dictated by: Tamanna Puente M.D. The radiology attending physician has personally reviewed this study,and had reviewed and/or edited this written report and agrees with it. Electronically signed by: Elsy Fields M.D. Result Date: 12/26/2023 1. Interval removal of left-sided ureteral stent. No significant change in left hydroureteronephrosis with point of transition in the mid to distal ureter, likely corresponding to the area of stricture described on operative report from earlier today. There is a small nonobstructing left lower polerenal stone as well as layering stone material within the dilated left renal pelvis. Postproceduralchanges noted with gas within the bladder, left renal collecting system and left ureter. 2. 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 3. Continued decrease in size of left renal subcapsular collection. 4. Diffuse body wall edema. 5. Small nonobstructing right renal stones. Dictated by: Tamanna Puente M.D. The radiology attending physician has personally reviewed this study, and had reviewed and/or edited this written report and agrees with it. Electronically signed by: Elsy Fields M.D. Discharge Details Physical Exam at Discharge: Discharge Condition: stable Pulse: 65 Resp: 16 BP: 116/66 Temp: 37.3 ??C (99.1 ??F) Weight: 90.7 kg (200 lb) Pertinent Exam Findings at Discharge: L PCN in place draining pink tinged urine without clots or obstruction. Shook in place draining clear yellow urine, removed prior to discharge Discharge Disposition: Discharge to not defined facility Code Status at Discharge: full Discharge Instructions: Please see AVS Discharge Medications: Current Medications TAKE these medications acetaminophen 500 mg tablet Take 1 tablet (500 mg total) by mouth every 6 (six) hours as needed for pain For: pain Commonly known as: TYLENOL acyclovir 400 mg tablet Take 1 tablet (400 mg total) by mouth 2 (two) times a day For: Chronic Suppression Commonly known as: ZOVIRAX bisacodyL 10 mg suppository Insert 1 suppository (10 mg total) into the rectum daily as needed for constipation For: constipation Commonly known as: DULCOLAX cholecalciferol 5,000 unit capsule Take 1 capsule (5,000 Units total) by mouth every morning For: low vitamin D levels Commonly known as: VITAMIN D-3 cyclobenzaprine 5 mg tablet Take 1 tablet (5 mg total) by mouth 3 (three) times a day as needed for muscle spasms Commonly known as: FLEXERIL DILT-XR 240 mg 24 hr capsule Take 1 capsule (240 mg total) by mouth 2 (two) times a day For: high blood pressure Generic drug: dilTIAZem XR enoxaparin 80 mg/0.8 mL syringe Inject 0.8 mL (80 mg total) under the skin every 12 (twelve) hours For: blood clot formation in vein Commonly known as: LOVENOX furosemide 40 mg tablet Take 1 tablet (40 mg total) by mouth 2 (two) times a day Commonly known as: LASIX gabapentin 600 mg tablet Take 1 tablet (600 mg total) by mouth 3 (three) times a day For: pain Commonly known as: NEURONTIN guaiFENesin 20 mg/mL syrup Take 10 mL (200 mg total) by mouth 4 (four) times a day as needed for cough Commonly known as: ROBITUSSIN levETIRAcetam 1,000 mg tablet Take 1 tablet (1,000 mg total) by mouth 2 (two) times a day Commonly known as: KEPPRA miconazole 2 % powder Apply topically 2 (two) times a day oxyCODONE 5 mg immediate release tablet Take 1 tablet (5 mg total) by mouth every 4 (four) hours as needed for pain for up to 5 doses For: pain Commonly known as: ROXICODONE pantoprazole DR 40 mg EC tablet Take 1 tablet (40 mg total) by mouth daily For: Treatment of Non-Bleeding Gastric Disorder Commonly known as: PROTONIX ramelteon 8 mg tablet Take 1 tablet (8 mg total) by mouth nightly For: difficulty falling asleep Commonly known as: ROZEREM senna-docusate 8.6-50 mg Take 1 tablet by mouth nightly Commonly known as: PERICOLACE tamsulosin 0.4 mg extended release capsule Take 2 capsules (0.8 mg total) by mouth daily with dinner Commonly known as: FLOMAX VITAMIN C ORAL Take 1 tablet by mouth 2 (two) times a day For: supplement Outpatient Follow-Up: Future Appointments Date Time Provider Department Center 12/31/2023 9:20 AM Marcial Vu MD [facility] 02/05/2024 11:00 AM [facility] Cosigned by Temo Mcintosh MD at 12/27/2023 12:38 PM MATERIAL DISPOSITION INSPECTOR RIAL DISPOSITION INSPECTOR RIAL DISPOSITION INSPECTOR documented in this encounter Discharge Instructions * Discharge Instructions* Angela Paz MD - 12/25/2023 7:03 AM MATERIAL DISPOSITION INSPECTOR Diagnosis:Left ureteral stricture Procedure:Left nephrostomy tube placement Limitations: [] No lifting greater than [...] tube [] once a day [] Other: [x] Record drainage output every day. [] Your tube is capped. Uncap the tube after or if severe pain or fever develops. (Please see teaching sheet). [] Call Interventional Radiology if there is leakage around the tube or the tube stops draining. To contact an Interventional Radiologist at [facility] call [phone] Sunday through Sunday from 7:30am-4:30pm. At all other times call [phone] and ask that the Interventional Radiologist be paged. To contact an Interventional Radiologist at [facility] call [phone] Sunday through Sunday from 7:30am-3:30pm. Special instructions: Please call Interventional Radiology for any procedure related questions or problems including: Extreme swelling or bruising at the site. Unusual drainage or bleeding from procedure site. Fever of 101.5 F for more than 24 hours. Severe procedure related pain. Follow up care: Our staff will reach out to you regarding follow up appointment tentatively planned around 6-8 weeks from now to re-evaluate your nephrostomy tube. DISCHARGE INSTRUCTIONS Surgeon: Temo Mcintosh MD Problem List: Principal Problem: Kidney stones Admission Diagnoses: CALCULUS OF KIDNEY Procedure: Procedure(s): PERCUTANEOUS NEPHROLITHOTOMY CYSTOSCOPY URETEROSCOPY PLACEMENT STENT - URETERAL General Postsurgical Instructions: You may feel mildly [...] important papers or make important decisions. Activity: DO NOT lift more than 10 pounds (4.5 kilograms) or perform activities like pushing and pulling for 4 weeks. DO NOT engage in activities that may risk injury to your surgical site. Wound Care: Apply ice packs on incision to relieve discomfort and pain as needed. DO NOT change bandages/dressings for 1 day. Wash hands well before changing your bandage. DO NOT take bath, swimming or submerge your surgical site under water for 2 weeks. May shower 1 day after surgery. Remove your bandages during or just before shower. Cleanse your incision thoroughly but gently with mild soap and water. Pat dry with a clean, dry cloth. Keep your incision clean and dry. No additional bandages are needed on your incision after 3 days unless you are having drainage or for comfort. You have quick dry glue applied as dressing, it will flake-off usually in 7-10 days. DO NOT smoke. It impairs wound healing and is overall bad for your health. Diet: Resume your diet prior to surgery. Seek immediate medical care or contact your caregiver if: You experience a severe headache, persistent dizziness, light-headedness, or visual disturbances. Your surgical site pain is unrelieved by medications. Your incision opens, separates, drains pus or foul smelling discharge, or excessively bleeds. There is redness, swelling, worsening pain, or signs of infection around your surgical site. You have a fever of 101?? F [...] not doing well or your condition worsens. Temo Mcintosh MD Urology [employer] [facility] [employer] [facility], [address] [place] [address] For appointments: [phone] My assistant federal public defender - Luciana [phone] For after hours emergencies: [phone] RIAL DISPOSITION INSPECTOR RIAL DISPOSITION INSPECTOR RIAL DISPOSITION INSPECTOR RIAL DISPOSITION INSPECTOR documented in this encounter Medications at Time of Discharge acetaminophen (TYLENOL) 500 mg tabletIndications :Pain Take 1 tablet (500 mg total) by mouth every 6 (six) hours as needed for pain 30 tablet 12/27/2023 acyclovir (ZOVIRAX) 400 mg tabletIndications :Chronic Suppression Take 1 tablet (400 mg total) by mouth 2 (two) times a day 12/10/2023 ascorbic acid (VITAMIN C ORAL)Indications: supplement Take 1 tablet by mouth 2 (two) times a day bisacodyL (DULCOLAX) 10 mg suppositoryIndica tions:constipatio n Insert 1 suppository (10 mg total) into the rectum daily as needed for constipation 12/10/2023 cholecalciferol (VITAMIN D-3) 5,000 unit capsuleIndication s:Vitamin D Deficiency Take 1 capsule (5,000 Units total) by mouth every morning 12/10/2023 cyclobenzaprine (FLEXERIL) 5 mg tablet Take 1 tablet (5 mg total) by mouth 3 (three) times a day as needed for muscle spasms 12/10/2023 furosemide (LASIX) 40 mg tablet Take 1 tablet (40 mg total) by mouth 2 (two) times a day 12/11/2023 5 gabapentin (NEURONTIN) 600 mg tabletIndications :Pain Take 1 tablet (600 mg total) by mouth 3 (three) times a day 12/10/2023 5 miconazole 2 % powder Apply topically 2 (two) times a day 12/10/2023 Mounjaro 10 mg/0.5 mL pen injector 12/27/[address] (PROTONIX) 40 mg EC tabletIndications :Treatment of Non-Bleeding Gastric Disorder Take 1 tablet (40 mg total) by mouth daily 12/11/2023 5 senna-docusate (PERICOLACE) 8.6-50 mg Take 1 tablet by mouth nightly 12/10/2023 tamsulosin (FLOMAX) 0.4 mg extended release capsule Take 2 capsules (0.8 mg total) by mouth daily with dinner 12/10/2023 DILT-XR 240 mg 24 hr capsuleIndication s:hypertension Take 1 capsule (240 mg total) by mouth 2 (two) times a day 12/10/2023 4 enoxaparin (LOVENOX) 80 mg/0.8 mL syringeIndication s:Venous Thrombosis Inject 0.8 mL (80 mg total) under the skin every 12 (twelve) hours 12/10/2023 4 guaiFENesin (ROBITUSSIN) syrup 100 mg/5 mL Take 10 mL (200 mg total) by mouth 4 (four) times a day as needed for cough 12/10/2023 4 levETIRAcetam (KEPPRA) 1,000 mg tablet Take 1 tablet (1,000 mg total) by mouth 2 (two) times a day 12/10/2023 4 oxyCODONE (ROXICODONE) 5 mg immediate release tabletIndications :Pain Take 1 tablet (5 mg total) by mouth every 4 (four) hours as needed for pain for up to 5 doses 5 tablet 12/27/2023 4 ramelteon (ROZEREM) 8 mg tabletIndications :Sleep-Onset Insomnia Take 1 tablet (8 mg total) by mouth nightly 4 documented as of this encounter Ordered Prescriptions Prescription Sig Dispense Quantity Refills Last Filled Start Date End Date acetaminophen (TYLENOL) 500 mg tabletIndications: Pain Take 1 tablet (500 mg total) by mouth every 6 (six) hours as needed for pain 30 tablet 12/27/2023 oxyCODONE (ROXICODONE) 5 mg immediate release tabletIndications: Pain Take 1 tablet (5 mg total) by mouth every 4 (four) hours as needed for pain for up to 5 doses 5 tablet 12/27/2023 02/14/2024 documented in this encounter Discharge Disposition Disposition Code Departure Means Destination Comment s Discharge to SNF documented in this encounter Progress Notes * Estella Maxwell RN - 12/27/2023 12:42 PM CST 12/25/23 1401 Discharge Summary Discharge Disposition nursing home facility (short term care) Specify Facility [facility] Contact Number Report: [phone] Discharge Records Chart Copied Discharge Additional Assistance Does the patient need discharge transport arranged? Yes Has discharge transport been arranged? Yes Details of Transportation [facility] [phone] trip #[phone] D/C Transport Anticipated Date 12/27/23 D/C Transport Anticipated Time 1400 Discharge Transportation Communication Mode of transport has been discussed with the patient/family. All are agreeable to the plan and understand their responsibilities to ensure the safe transfer. No further CM/SW intervention is anticipated at this time. Post Discharge Care Provider Post Discharge Care Plan DC Summary has been faxed to next level of care provider (see Follow Up Providers) Per medical team, patient is medically stable for discharge at this time. Patient has been acceptedto [facility]. CM spoke with the patient/family, admissions, medical team, and RN regarding discharge planning, and all are agreeable to discharge. Post-acute care transfer packet completed andwill be sent with the patient. RN provided with report number to nurses station. Room # 511B provided by facility. Mode of transport has been discussed with the patient/family, MD, nursing staff. All are agreeable to plan and understand their responsibilities to ensure the safe transfer. Patient/family informed patient may require ambulance transport. seniour insight manager informed patient/family that even if the patient's insurance benefit includes ambulance transport, it may not cover the full cost of the transportation. The patient may be responsible for any hav-ze-tcaixl cost, includingmileage beyond the nearest appropriate facility. Patient/family voiced understanding. RIAL DISPOSITION INSPECTOR * Estella Maxwell RN - 12/27/2023 8:24 AM CST 12/27/23 0824 Communications Important Message from Medicare notice given to patient? Yes IM letter completed with patient/arborist representative at bedside. Patient/arborist representative were informed ofthe planned discharge date, the date the beneficiary's financial liability begins, the beneficiary's appeal rights, and how and when to initiate an appeal. Patient/arborist representative were provided a copy of the IM letter and IM letter was placed in unit???s designated medical record bin to be uploaded into the patient???s chart. RIAL DISPOSITION INSPECTOR * Tavo Vance MD - 12/27/2023 6:30 AM CST Images from the original note were not included. 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 Status post left 10Fr [place] nephrostomy tube on 12/26/2023. Interval History: No acute events. Not endorsing pain. Exam: General: alert & oriented X 3, NAD Skin: warm and well perfused C/V: normal rate and rhythm Pulm: normal respirations, symmetric chest rise, nonlabored breathing Abdomen: soft, NT/ND, left flank 10 Fr [place] nephrostomy tube draining pink/blood-tinged urine. Shook draining clear yellow urine Temp: [36.1 ??C (97 ??F)-37.7 ??C (99.9 ??F)] 37 ??C (98.6 ??F) Pulse: [57-90] 86 Resp: [9-18] 18 BP: (83-142)/(40-90) 104/83 Chem/LFT Lab History Latest Ref Rng & Units 12/17/2023 12/20/2023 06:07 12/24/2023 06:25 12/26/2023 00:08 Labs-Chem/LFT Sodium 135 - 145 mmol/L 140 141 141 142 Creatinine 0.80 - 1.30 mg/dL 0.76 0.82 0.82 0.80 Bilirubin, total 0.1 - 1.2 mg/dL 0.3 0.3 0.3 AST 10 - 50 Units/L 25 23 21 ALT 7 - 55 Units/L 33 28 25 Alk phos 40 - 130 Units/L 95 86 84 CrCl- Actual Body Weight (Cockcroft-Gault) 112.7 104.5 104.5 107.1 Details More abnormal values are hidden. Newest values shown. Go to activity for more data. More values are hidden. Newest values shown. Go to activity for more data. Hematology Lab History Latest Ref Rng & Units 12/17/2023 07:28 12/20/2023 06:07 12/24/2023 06:25 12/26/2023 00:08 Labs - Hematology WBC 3.8 - 9.9 K/cumm 5.2 4.7 4.5 9.4 Total Hb, POC 13.0 - 17.5 g/dL 10.0 9.3 9.8 10.5 Hct 38.9 - 50.3 % 30.8 29.6 30.3 32.4 Plt 150 - 400 K/cumm 317 253 224 189 Neutrophil abs 1.5 - 6.5 K/cumm 3.2 2.6 2.3 Lymphocytes, abs 0.8 - 3.3 K/cumm 1.2 1.3 1.5 Lab Results Component Value Date MICROBIOLOGY 11/30/2023 Final Report: Less than 100,000 colonies/mL (clinically insignificant growth based on current clinical standards) Output by Drain (mL) 12/24/23 0700 - 12/24/23 1859 12/24/23 1900 - 12/25/23 0659 12/25/23 0700 - 12/25/23 1859 12/25/23 1900 - 12/26/23 0659 12/26/23 07 - 12/26/23 1501 Requested LDAs do not have output data documented. Assessment and Plan: 73-year-old man with a history of DVT (with IVC filter), left ureteral stones status post staged stone extraction found to have a mid left ureteral stricture. Status post left 10Fr [place] nephrostomy tube on 12/26/2023. - Please continue to document output - IR follow-up scheduled for 02/05/2024 for possible internalization or nephrostomy tube change Plan discussed with IR attending, Dr. Crum. Tavo Vance MD PGY-2, Interventional Radiology Service RIAL DISPOSITION INSPECTOR RIAL DISPOSITION INSPECTOR * Dolores Gonzalez, SOCIAL SCIENCE INSTRUCTOR - 12/26/2023 2:02 PM CST Images from the original note were not included. Urology Progress Note Subjective Patient is a 73 y.o. male with complex urologic history more recently treated for a heavily impacted ureteral stone that now presents for staged ureteroscopy to confirm stone clearance. He was found to have a High-grade left mid-ureteral stricture that could not be cannulated with multiple glide wire attempts. 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, pulm HTN, GERD, hx prostatectomy, bedbound from facility Interval History: No acute events overnight, VSS, afebrile NPO for IR procedure Objective Recent Vitals(24hr Range): Vitals: 12/26/23 1255 12/26/23 1305 12/26/23 1345 12/26/23 1355 BP: 111/70 116/72 104/83 BP Location: Right arm Right arm Patient Position: Lying;HOB 30 degrees Pulse: 69 67 76 86 Resp: 17 16 18 Temp: 36.1 ??C (97 ??F) 37 ??C (98.6 ??F) TempSrc: Temporal Oral SpO2: 96% 98% 95% 98% Weight: Height: I and Os: I/O last 3 completed shifts: In: 3835.6 [P.O.:1800; I.V.:5.6] Out: 4175 [Urine:4175] I/O this shift: In: - Out: 1105 [Urine:1105] I/O last 2 completed shifts: In: 3835.6 [P.O.:1800; I.V.:5.6] Out: 4175 [Urine:4175] I/O this shift: In: - Out: 1105 [Urine:1105] Physical exam: Physical exam: General: Lying comfortably in bed. No acute distress. A&O x4. HEENT: pupils equal, Sclera anicteric, EOMI. Moist mucous membranes. Resp: Pulmonary/Chest: Effort normal. No accessory muscle usage. No respiratory distress. CV: warm & well-perfused Abdomen: Soft, non-tender, non-distended. There is no tenderness. There is no CVA tenderness : Shook catheter with clear yellow urine Extremities: Moving all extremities, no gross deformities Skin: Warm and dry. Neuro: Alert & oriented, speech fluent and appropriate, Lab/Radiology/Diagnostic Review: Chem/LFT Lab History Latest Ref Rng & Units 12/17/2023 12/20/2023 06:07 12/24/2023 06:25 12/26/2023 00:08 Labs-Chem/LFT Sodium 135 - 145 mmol/L 140 141 141 142 Creatinine 0.80 - 1.30 mg/dL 0.76 0.82 0.82 0.80 Bilirubin, total 0.1 - 1.2 mg/dL 0.3 0.3 0.3 AST 10 - 50 Units/L 25 23 21 ALT 7 - 55 Units/L 33 28 25 Alk phos 40 - 130 Units/L 95 86 84 CrCl- Actual Body Weight (Cockcroft-Gault) 112.7 104.5 104.5 107.1 Details More abnormal values are hidden. Newest values shown. Go to activity for more data. More values are hidden. Newest values shown. Go to activity for more data. Hematology Lab History Latest Ref Rng & Units 12/17/2023 07:28 12/20/2023 06:07 12/24/2023 06:25 12/26/2023 00:08 Labs - Hematology WBC 3.8 - 9.9 K/cumm 5.2 4.7 4.5 9.4 Total Hb, POC 13.0 - 17.5 g/dL 10.0 9.3 9.8 10.5 Hct 38.9 - 50.3 % 30.8 29.6 30.3 32.4 Plt 150 - 400 K/cumm 317 253 224 189 Neutrophil abs 1.5 - 6.5 K/cumm 3.2 2.6 2.3 Lymphocytes, abs 0.8 - 3.3 K/cumm 1.2 1.3 1.5 Assessment /Plan Principal Problem: Kidney stone Active Problems: Nephrolithiasis 73 y.o. male with High-grade left mid-ureteral stricture. Plan: - IR consult for placement of left PCNU - : mIVF, Shook catheter to gravity - GI: NPO for procedure then may have regular diet - Pain: Scheduled tylenol - Activity: ambulate 3-4 times a day - DVT [ppx: SCD's - PE/DVT: Home therapeutic SQ lovenox (held for procedure) [facility] Urology 12/26/2023 Cosigned by Temo Mcintosh MD at 12/26/2023 5:10 PM MATERIAL DISPOSITION INSPECTOR RIAL DISPOSITION INSPECTOR RIAL DISPOSITION INSPECTOR Associated attestation - Temo Mcintosh MD - 12/26/2023 5:10 PM MATERIAL DISPOSITION INSPECTOR I have seen and examined the patient on 12/26/23. I agree with the findings and plan of care as documented in the resident's/fellow's note. -- Will plan on delayed internalization to an indwelling ureteral stent per IR recommendations (estimated in 4-6 weeks) -- My clinical suspicion is that the heavily impacted ureteral stone resulted in a high-grade ureteral stricture. group home management will be either scheduled stent exchanges vs reconstruction. However, at this time, the patient is a poor surgical candidate for reconstruction. Furthermore, stricture length and quality will need to be better characterized with diagnostic ureteroscopy prior to any reconstructive efforts being undertaken. Temo Mcintosh MD * Rebecca Leon, PT - 12/26/2023 10:36 AM CST Physical Therapy Physical Therapy Initial Assessment NOTE: This is a summary note for the jones assessments completed during the evaluation session. For full details, review chart review for all flowsheets documented on by this physical therapist on thisdate. Vital signs documented in vital signs flowsheet. Assessment Assessment Prognosis: Good Problem List: Decreased strength, Decreased range of motion, Decreased endurance, Impaired balance,Decreased mobility Problem List Comments: PT diagnosis: Pt presents with kidny stones s/p cystoscopy, pyelogram, ureteroscopy and stone extraction which causes activity deficits and impairments as noted above which limits his ability to participate in home and community mobiltiy and ambulation Plan Plan Plan : Plan of care initiated, If this is the last note, consider this the discharge summary PT Recommendation and Plan Recommendation/Plan PT Recommendation/Plan: Inpatient Rehab Facility Patient at high risk for: Falls, Readmission, Injury due to decreased ability to care for self, Injury due to reduced functional status, Injury due to balance deficits Recommend Inpatient Rehab/Acute Rehab due to: Ability to actively participate in intensive therapy 3 hours/day, 5 days/week or 900 minutes per week, Highly motivated to participate in therapy, Impaired ability to complete functional mobility, Requires greater than 25% physical assistance with most mobility tasks PT Frequency during current admission: 3-5x/wk Treatment/Interventions during current admission: Balance Training, Bed mobility, Endurance training, Functional activity, Functional transfer training, Therapeutic activity, Therapeutic exercise, Transfer training PT Equipment Recommended: None PT - Next Appointment: 12/28/23 PT Evaluation Complete: Yes General Information General Chart Reviewed: Yes Session Type: Evaluation PT Received On: 12/26/23 Safe Environment: Arm band checked, Patient found in supine, Gait belt not utilized, see comment (due to no OOB mobility performed) Subjective: Agreeable to Therapy Family/Caregiver Present: No Physical Therapy-Patient Goal: To be able to transfer in and out of a w/c Prior Function Prior Function Level of [place]: Needs assistance with functional transfers, Independent with wheelchair Lives With: Spouse Receives Help From: Spouse/Significant other (watch parts grinder assist available) Fall within the last 6 months: Yes Fall within the last 6 months comment: several while learning to walk and transfer in and out of a chair Prior Function Comments: Pt reports that he was independent with ambulation with use of a w/w priorto last hospitalization. Pt reports he was at [facility] prior to this admission and states that he was using a slideboard to transfer in and out of his w/c. Home Living Home Living Type of Home: House Home Layout: One level Home Access: Stairs to enter without rails Entrance Stairs-Number of Steps: 2 Home Mobility Equipment-Available: Wheeled walker, Quad cane-large base, Quad cane-small base Home Mobility Equipment-Currently Using: Wheeled walker, Quad cane-large base, Quad cane-small base Precautions Precautions Precautions: Fall risk Braces/Orthoses: TLSO (donned/doffed in supine for session) Precaution Comments: Verbally reviewed spinal protective strategies with patient, pt verbalized understanding Pain Pain Assessment Pain Assessment: No/denies pain Cognition Cognition Arousal/Alertness: Alert, Appropriate responses to stimuli Orientation : Oriented X4 (person, place, time, situation) Following Commands: Follows all commands and directions without difficulty 6 Clicks Basic Mobility - 6 Click How much difficulty does the patient have: Turning over in bed: A lot How much difficulty does the patient currently have: Sitting down and standing up from a chair witharms?: A lot How much difficulty does the patient have: Moving from lying on back to sitting on the side of the bed?: A lot How much difficulty does the patient have: Moving to and from a bed to a chair including wheelchair?: A lot How much help does the patient currently need: Walk in hospital room?: Total How much help from another person does the patient currently need: Climbing 3-5 steps with a railing?: Total Total 6 Click Score (range 6-24): 10 Score Interpretation: 10 Bed Mobility Bed Mobility Bed Mobility: Yes Bed Mobility 1 Bed Mobility From 1: Supine Bed Mobility Type 1: To and from Bed Mobility to 1: Side lying-right, Side lying-left Level of Assistance 1: Maximum Assist Bed Mobility Comments 1: for rotation of trunk and maneuvering LEs Bed Mobility 2 Bed Mobility From 2: Supine Bed Mobility Type 2: To and from Bed Mobility to 2: Edge of Bed Level of Assistance 2: Maximum Assist (of 2 people) Bed Mobility Comments 2: for elevation/lowering of trunk and maneuvering LEs Transfers Transfers Transfer: No (2/2 level of assistance required for bed mobility) Balance Static Sitting Balance Static Sitting-Balance Support: Bilateral upper extremity supported, Feet supported Static Sitting-Sitting Surface: Bed Static Sitting-Level of Assistance: Minimum assistance Static Sitting-Comment/# of Minutes: to maintain upright balance Dynamic Sitting Balance Dynamic Sitting-Balance Support: Bilateral upper extremity supported, Feet supported Dynamic Sitting-Balance: Forward lean, Reaching for objects Dynamic Sitting-Sitting Surface: Bed Dynamic Sitting-Level of Assistance: Moderate assistance Dynamic Sitting-Comments: Pt leaning to the right, required mod A to correct balance to the midline Ambulation Ambulation Ambulation: No Stairs Stairs Stairs: No Curbs RLE Assessment RLE Assessment RLE Assessment: Exceptions to WFL Strength RLE R Hip Flexion: 0/5 R Knee Flexion: 0/5 R Knee Extension: 0/5 R Ankle Dorsiflexion: 0/5 R Ankle Plantar Flexion: 0/5 LLE Assessment LLE Assessment LLE Assessment: Exceptions to WFL Strength LLE L Hip Flexion: 0/5 L Knee Flexion: 0/5 L Knee Extension: 0/5 L Ankle Dorsiflexion: 0/5 L Ankle Plantar Flexion: 0/5 Equipment Used Safe Environment End of Session Safe Environment End of Therapy Session: Patient left supine in bed, Call light within reach Other Comments Other Comments Other PT Comments: Co-evaled with OT due to complexity of patient. PT Goals Multi-Disciplinary Problems (from Physical Therapy) Active Problems Problem: Mobility Start Date: 12/26/23 Goal Start Date Expected End Date End Date STG - Patient will propel the wheelchair 12/26/23 01/02/24 -- Problem: Transfers Start Date: 12/26/23 Goal Start Date Expected End Date End Date STG - Transfer from bed to chair 12/26/23 01/02/24 -- Goal Start Date Expected End Date End Date STG - Patient to transfer to and from sit to supine 12/26/23 01/02/24 -- RIAL DISPOSITION INSPECTOR * Galina Stoddard, OT - 12/26/2023 10:16 AM CST Occupational Therapy Occupational Therapy Initial Assessment NOTE:This is a summary note for the jones assessments completed during the evaluation session. For full details, review chart review for all flowsheets documented on by this Occupational Therapist on this date. Vital signs documented in vital signs flowsheet. Assessment Assessment Problem List: Decreased endurance, Decreased balance, Decreased functional mobility, Decreased ADL independence, Decreased IADL independence, Decreased trunk control for functional activities Barriers to Discharge: Current Mobility Status, Current ADL Status Plan Plan Plan: Plan of care initiated, If this is the last note, consider this the discharge summary OT Recommendation and Plan Recommendation/Plan OT Recommendation: Inpatient Rehab Facility Patient at high risk for: Falls, Readmission, Injury due to decreased ability to care for self, Injury due to reduced functional status, Injury due to balance deficits, Injury at home as patient has not returned to prior level of function Recommend Inpatient Rehab/Acute Rehab due to: Ability to actively participate in intensive therapy 3 hours/day, 5 days/week or 900 minutes per week, Highly motivated to participate in therapy, Not atbaseline due to impaired ability to complete ADLs, Impaired ability to complete functional mobility, Likely to return to the community at discharge with support system in place, Requires greater than25% physical assistance with most mobility tasks, Requires greater than 25% physical assistance with most ADL tasks, Requires multiple therapy disciplines to address functional deficits OT Frequency during current admission: 3-5x/wk Comments: Pt completed ADL and functional mobility with mod - max assist this date. Pt would benefit from continued skilled OT services to increase safety and independence in ADLs. Pt in agreement with [place] rec at this time. Treatment/Interventions during current admission: ADL/IADL retraining, Balance Training, Bed mobility, Compensatory technique education, Endurance training, Functional activity, Functional mobility training, Functional transfer training, Therapeutic activity, Therapeutic exercise, Transfer training OT - Next Appointment: 12/28/23 OT Evaluation Complete: Yes General Information General Chart Reviewed: Yes Session Type: Evaluation OT Received On: 12/26/23 Safe Environment: Arm band checked, Patient found in supine, Session completed bedside, Gait belt not utilized, see comment (TLSO) Subjective: Agreeable to Therapy Family/Caregiver Present: No Occupational Therapy-Patient Goal: agreeable to OT goals, wants to go to rehab again because he feels he was making good progress Precautions Precautions Precautions: Fall risk Braces/Orthoses: TLSO (donned/doffed in supine for session) Precaution Comments: Verbally reviewed spinal protective strategies with pt, pt verbalized understanding. Home Living Home Living Type of Home: House Home Layout: One level Home Access: Stairs to enter without rails Entrance Stairs-Number of Steps: 2 Bathroom Shower/Tub: Walk-in shower with threshold Bathroom Toilet: Standard Bathroom Equipment: (none) Home Mobility Equipment-Currently Using: Wheeled walker, Quad cane-small base, Quad cane-large base Prior Function Prior Function Level of [place]: Needs assistance with ADLs, Needs assistance with homemaking Lives With: Spouse Receives Help From: Spouse/Significant other (watch parts grinder assist) ADL Assistance: Independent Instrumental ADL (IADL) Assistance: Independent Fall within the last 6 months: Yes Fall within the last 6 months comment: A lot Prior Function Comments: Pt reports he was independent with ADLs/IADLs with use of WW prior to lasthospitalization (before onset of BLE impairments). Pt reports he was at [facility] prior to this admission and states he was completing slide board transfer to wheelchair/toilet. Activities of Daily Living Grooming Grooming: Assistance with: (Pt declined at this time, but simulated bimanual grooming task EOB - mod assist dynamic sitting balance.) LE Dressing LE Dressing: Where assessed: Edge of bed LE Dressing: Level of assistance: Maximum Assist LE Dressing: Assistance with: Don/doff R sock, Don/doff L sock, Thread RLE into pants, Thread LLE into pants, Thread RLE into underwear, Thread LLE into underwear, Pull up over hips (total assist task, mod assist sitting balance. Pt required assist to lift BLE to utilize direct care provider to doff sock) LE Dressing: Equipment Utilized: Contour Stitcher Toilet Transfers Toilet Transfers: Not tested Pain Pain Assessment Pain Assessment: No/denies pain Cognition Cognition Overall Cognitive Status: Within Functional Limits Arousal/Alertness: Alert Attention Span: Appears intact Memory: Appears intact Current communication: Appears Intact Orientation : Oriented X4 (person, place, time, situation) Following Commands: Follows all commands and directions without difficulty Safety Judgment: Good awareness of safety precautions Awareness of Errors: Good awareness of errors made Insight: Fully aware of deficits Problem Solving: Able to problem solve independently Compliance/Behavior: Easy to engage Perseveration: Not present Short Blessed Test What year is it now?: Correct What month is it now?: Correct Repeat this name and address after me: Marcial Reddy [address] [place] [address] Without looking at the clock, tell me what time it is: Correct-within one hour Count aloud backwards from 20-1: 0 Errors Say the months of the year backwards in reverse order: 0 Errors Repeat the name and address I asked you to remember: 0 Errors Short Blessed Total Score: 0 Short Blessed Comments: WNL 6 Clicks Daily Activity - 6 Clicks Putting on and taking off regular lower body clothing: A lot Bathing: A lot Toileting: A lot Putting on and taking off upper body clothing: A Lot Personal Grooming: A lot Eating Meals: None Total Score (range 6-24): 14 Score Interpretation: 14 Balance Static Sitting Balance Static Sitting-Balance Support: Feet supported, Bilateral upper extremity supported Static Sitting-Sitting Surface: Bed Static Sitting-Level of Assistance: Minimum assistance Static Sitting-Comment/# of Minutes: assist with upright balance Dynamic Sitting Balance Dynamic Sitting-Balance Support: No upper extremity supported, Feet supported Dynamic Sitting-Balance: Reaching for objects Dynamic Sitting-Sitting Surface: Bed Dynamic Sitting-Level of Assistance: Moderate assistance Dynamic Sitting-Comments: assist with balance during seated ADL tasks Transfers Transfers Transfer: No Bed Mobility Bed Mobility Bed Mobility: Yes Bed Mobility 1 Bed Mobility From 1: Supine Bed Mobility Type 1: To and from Bed Mobility to 1: Edge of bed Level of Assistance 1: Maximum Assist (x2 people) Bed Mobility Comments 1: assist with force production, trunk control, and BLE management RUE Assessment RUE Assessment RUE Assessment: Within Functional Limits LUE Assessment LUE Assessment LUE Assessment: Within Functional Limits Safe Environment End of Session Safe Environment End of Therapy Session: Patient left supine in bed, RN notified, Call light withinreach, Overbed table within reach, Bed in lowest position with wheels locked Other Comments Other Comments Comments: Pt completed ADL and functional mobility with mod - max assist this date. Pt would benefit from continued skilled OT services to increase safety and independence in ADLs. Pt in agreement with [place] rec at this time. OT Goals Multi-Disciplinary Problems (from Occupational Therapy) Active Problems Problem: Dressings Lower Extremities Start Date: 12/26/23 Goal Start Date Expected End Date End Date STG - Patient to complete lower body dressing with Min A 12/26/23 01/09/24 -- Problem: Dressing Upper Extremities Start Date: 12/26/23 Goal Start Date Expected End Date End Date STG - Patient will dress upper body with Min A 12/26/23 01/09/24 -- Problem: Grooming Start Date: 12/26/23 Goal Start Date Expected End Date End Date STG - Patient will complete grooming with Min A 12/26/23 01/09/24 -- Problem: Toileting Start Date: 12/26/23 Goal Start Date Expected End Date End Date STG - Patient will complete toileting tasks with Min A 12/26/23 01/09/24 -- Problem: Transfers Start Date: 12/26/23 Goal Start Date Expected End Date End Date STG - Patient will perform toilet transfer with Min A 12/26/23 01/09/24 -- Problem: OT Misc Start Date: 12/26/23 Goal Start Date Expected End Date End Date OT LTG - Pt will complete ADLs with modified independence 12/26/23 01/09/24 -- For questions, please review the treatment team and contact the occupational therapist currently assigned to this patient. If an occupational therapist is not assigned to this patient, please call [phone]. RIAL DISPOSITION INSPECTOR * Nichole Mitchell MD - 12/25/2023 10:59 AM CST Postoperative Assessment Subjective Pain controlled. Denies N/V. Objective Vitals: Vitals: 12/25/23 1050 BP: 130/73 Pulse: 58 Resp: 16 Temp: SpO2: 100% Gen: A&OX3, no acute distress Pulm: non-labored breathing with symmetrical expansion CV: RRR Abd: non-distended and soft, non-tender Skin: wwp : shook in place draining camilo urine Assessment 73 y.o. male h/o kidney stone POD0 s/p Procedure(s): CYSTOSCOPY PYELOGRAM - RETROGRADE URETEROSCOPY Stone extraction . Doing well. Plan Neuro: no pain at this time CV: Vital Signs Stable Pulm: Incentive Spirometer GI: IV fluids and adult regular diet : continue shook ID: Periop antibiotics Activity: OOB, Ambulate TID VTE prophylaxis: SCDs, SQ injections Nichole Mitchell MD Urology PGY-1 Please call the Urology service phone number for questions about this patient's care. RIAL DISPOSITION INSPECTOR documented in this encounter H&P Notes * Dulce Siegel MD - 12/25/2023 6:51 AM CST I have reviewed the H&P, examined the patient, and endorse the findings as written. Plan of Care : Based on the above findings, I consider Hira Evans to be an acceptable risk for : Procedure(s): CYSTOSCOPY PYELOGRAM - RETROGRADE URETEROSCOPY LITHOTRIPSY - LASER EXCHANGE STENT - URETERAL General: In no acute distress HEENT: NC/AT Pulmonary: Non-labored breathing Cardiovascular: Well perfused Abdomen: soft, non tender, Non distended Neuro: Alert and oriented Psych: Appropriate and cooperative Cosigned by Temo Mcintosh MD at 12/25/2023 7:00 AM MATERIAL DISPOSITION INSPECTOR RIAL DISPOSITION INSPECTOR RIAL DISPOSITION INSPECTOR Source Note - Tamia Lee NP - 12/19/2023 8:16 AM MATERIAL DISPOSITION INSPECTOR Images from the original note were not included. [facility] Preoperative Assessment and Planning Preoperative Evaluation Record Evaluation type/location: TPAP from [facility] Planned procedure site: [facility] PVT OR (Pod 1) Date: 12/19/23 NOTE: This note represents a preoperative evaluation initiated via telephone interview. NO PHYSICALEXAM was performed at the time of initial assessment. A physical exam may be added to this note anddocumented below. Anesthesia Evaluation Hira Evans is a 73 y.o. male Procedure(s): CYSTOSCOPY PYELOGRAM - RETROGRADE URETEROSCOPY LITHOTRIPSY - LASER EXCHANGE STENT - URETERAL Pre-Op Diagnosis Codes: * Kidney stone [N20.0] HISTORY HPI Hira Evans is a 73 yo male who is being evaluated prior to undergoing cystoscopy , ureteroscopy, ureteral stent exchange, laser lithotripsy for kidney stone Past Medical History Information obtained from: patient and chart. Neurological + Seizures (x1 episode 10/23 post-op- on keppra) Pertinent negatives: neuromuscular disease; CVA/stroke and TIA Cardiovascular + Hypertension + Systolic or diastolic dysfunction w/o CHF (TTE 12/20/23: EF 55-60%) Diastolic function: stage I - impaired relaxation LVEF: 50-60%. + Current valvular disease (TTE 12/20/23) - TR - mild. + Other arrhythmia (cardiac arrest post-op 10/23) - h/o cardiac arrest. 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 Pertinent negatives: CAD ; IL ; CABG ; atrial fibrillation; pacemaker/ICD; negative for CHF; drug-eluting stent(s) and bare metal stent(s) Respiratory + Pulmonary hypertension (TTE 12/20/23: Raven PASP, RV mildly reduced systolic function) RV function: mild systolic dysfunction. Pertinent negatives: COPD; sleep apnea (KYLE); no O2 use outside the hospital; non-smoker and no tracheostomy Hepatic / Heme + History of anemia (H/H 10.0/30.8) Pertinent negatives: liver disease Gastrointestinal + GERD - on daily therapy. Asymptomatic. Renal / + Nephrolithiasis Pertinent negatives: renal disease and dialysis Endocrine / Other + Obesity (BMI >30) + Cancer history Cancer type: prostate cancer s/p protatectomy. Pertinent negatives: diabetes mellitus; thyroid disease; transplanted organ and infectious disease Functional Capacity Functional capacity: <4 METs, ambulates with assistance only and cannot ambulate Review of Systems + pedal edema (Chronic BLE edema- Manage on lasix) + previous transfusion (11/2023) + muscle weakness (bilateral legs) Pertinent negatives: productive cough; SOB; recent cold/flu; fever; chest pain; orthopnea; PND; bleeding problems and syncope PAT Summary and Plans Initial preoperative evaluation discussed with: Clayton Montez MD Additional comments: Hira Evans is a 73 y.o. male who is being evaluated prior to undergoing a low cardiac risk surgery. Revised Cardiac Risk Index factors are (none) for a total RCRI of 0 out of 6. Functional capacity is unable to ambulate. Per anesthesia record 10/23: Patient noted to be shaking during closure, abated after propofol given. Seized in PACU, started with generalized shaking, R gaze deviation, not following commands, obtunded. Arrested after 15-20 seconds, CPR started. 1x dose code epi given. ROSC after 2min. Notably post-ictal. Decision made to transfer to ICU. NOTE: [...] and screen needed Pending labs/tests include: None BMP 12/2023 WNL Patient instructions were provided via telephone and faxed to [facility]. Patient verbalized understanding of DOS instruction. Case discussed with CPAP attending: Patient with complex history with cardiac arrest 10/23 post-op in PACU (following planned L4-5 spinal decompression and fusion), found to have extensive PE in distal R and L main pulm arteries with extension in all lobar arteries, initiated on anticoagulation with subsequent paraspinal hematoma requ iring emergent evacuation on 11/08 with subsequent discontinuation of anticoagulation and IVC filter placement (11/09/23). Most recently admitted 11/29/23-12/10/23 with subacute, progressive LE edema now involving his abdomenand scrotum with 11/23 LE Duplex with extensive DVTs bilaterally. After discussion w/ consulting services, patient was started on heparin infusion w/o bolus. Discussed with hematology that patient should return to lovenox 80 mg BID for anticoagulation due to bleed risk and ability to more safely reverse anticoagulation without period of hypercoagulability. Vascular surgery evaluation without plan for thrombectomy due to extensive clot burden and extension into abdomen. -->Pt most recent TTE (10/24) was before the most recent exacerbation of disease (11/29). Pt willneed repeat TTE to evaluate right and left heart function in light of new anasarca. Spoke with MD at [facility]- will place order. Surgeon's office notified pt will need repeat TTE. -->Recommend holding Lovenox on morning of surgery only and resuming ANSELMO postoperatively. Instructed provided to [facility] staff. [employer] message sent to surgeon's office to make aware. Pending retrieval: Repeat TTE Preoperative evaluation performed by Tamia Lee NP on 12/19/23 at 8:42 AM . Follow up note TTE 12/20/23 reviewed: SUMMARY: Limited TTE. Grossly normal LV size and systolic function. Miild concentric LVH. LVEF 55-60%. Normal RV size with mildly reduced systolic function. Mild TR. Normal PASP. Normal IVC. E/A reversal c/w impaired diastolic function. See study dated 10/2023 for more complete report. TPAP assessment complete. Follow-up completed by: Tamia Lee NP on 12/20/23 at 5:41 PM Patient Active Problem List Diagnosis Date Noted DVT (deep venous thrombosis) ([facility]) ([facility]) 11/29/2023 Anemia 11/29/2023 Paraspinal hematoma 11/29/2023 Hyponatremia 11/29/2023 Elevated transaminase level 11/29/2023 Lower extremity edema 11/29/2023 Scrotal swelling 11/29/2023 Seizure ([facility]) 11/29/2023 Prediabetes 11/29/2023 Kidney stone 11/09/2023 Paralysis of both lower limbs ([facility]) ([facility]) 11/07/2023 Pulmonary embolism ([facility]) 10/26/2023 S/P spinal fusion 10/23/2023 Cardiac arrest (HCC) 10/23/2023 Left perinephric collection, 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 10/15/2023 Ureteral colic 10/13/2023 UTI (urinary tract infection) 10/13/2023 Hydronephrosis with urinary obstruction due to renal calculus 10/12/2023 Lumbar radiculopathy 10/08/2023 Gross hematuria 10/18/2022 Bladder neck obstruction 10/17/2022 Lesion of urinary bladder 10/17/2022 Prostate cancer (HCC) 10/17/2022 HTN (hypertension) 10/10/2021 Risk factors for obstructive sleep apnea 10/10/2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 Presence of right artificial knee joint 10/25/2018 Primary osteoarthritis of left knee 10/25/2018 Localized adiposity 07/17/2018 Knee pain 10/24/2016 Past Medical History: Diagnosis Date Allergic rhinitis Arthritis OA Cancer (CMS/HCC) (HCC) prostate and melonomia Cauda equina compression (HCC) DVT (deep venous [...] fusion L4-5 MELANOMA RESECTION Right 2006 flank PERCUTANEOUS NEPHROSTOMY PCN LEFT Left 10/14/2023 removed 10/18/2023 PROSTATECTOMY 2009 REPLACEMENT TOTAL KNEE Right 2014 REPLACEMENT TOTAL KNEE Left 10/17/2021 REVISION TOTAL KNEE ARTHROPLASTY Right 09/30/2019 THORACIC LAMINECTOMY 11/08/2023 T5-L5, and laminectomy posterior lumbar, repair dural tear VASECTOMY over 30 years ago No Known Allergies Med List Status: Nurse Complete Set By: Crystal Sprague RN at 12/12/2023 3:26 PM Taking? Last Dose Start Date End Date Provider acetaminophen 500 mg capsule -- 12/10/23 -- Jimenez Henao MD Take 2 capsules (1,000 mg total) by mouth every 6 (six) hours as needed for pain Patient taking differently: Take 2 capsules (1,000 mg total) by mouth every 6 (six) hours as neededfor pain 2 tablets acyclovir (ZOVIRAX) 400 mg tablet -- 12/10/23 -- Jimenez Henao MD Take 1 tablet (400 mg total) by mouth 2 (two) times a day ascorbic acid (VITAMIN C ORAL) -- -- -- Fidelia Perdue MD bisacodyL (DULCOLAX) 10 mg suppository -- 12/10/23 -- Jimenez Henao MD Insert 1 suppository (10 mg total) into the rectum daily as needed for constipation Patient taking differently: Insert 1 suppository (10 mg total) into the rectum nightly cholecalciferol (VITAMIN D-3) 5,000 unit capsule -- 12/10/23 -- Jimenez Henao MD Take 1 capsule (5,000 Units total) by mouth every morning cyclobenzaprine (FLEXERIL) 5 mg tablet -- 12/10/23 -- Jimenez Henao MD Take 1 tablet (5 mg total) by mouth 3 (three) times a day as needed for muscle spasms DILT-XR 240 mg 24 hr capsule -- 12/10/23 -- Jimenez Henao MD Take 1 capsule (240 mg total) by mouth 2 (two) times a day enoxaparin (LOVENOX) 80 mg/0.8 mL syringe -- 12/10/23 -- Jimenez Henao MD Inject 0.8 mL (80 mg total) under the skin every 12 (twelve) hours Patient taking differently: Inject 0.8 mL (80 mg total) under the skin 2 (two) times a day furosemide (LASIX) 40 mg tablet -- 12/11/23 12/10/24 Jimenez Henao MD Take 1 tablet (40 mg total) by mouth 2 (two) times a day Patient taking differently: Take 1 tablet (40 mg total) by mouth 2 (two) times a day gabapentin (NEURONTIN) 600 mg tablet -- 12/10/23 12/09/24 Jimenez Henao MD Take 1 tablet (600 mg total) by mouth 3 (three) times a day guaiFENesin (ROBITUSSIN) syrup 100 mg/5 mL -- 12/10/23 -- Jimenez Henao MD Take 10 mL (200 mg total) by mouth 4 (four) times a day as needed for cough levETIRAcetam (KEPPRA) 1,000 mg tablet -- 12/10/23 12/09/24 Jimenez Henao MD Take 1 tablet (1,000 mg total) by mouth 2 (two) times a day Patient taking differently: Take 1 tablet (1,000 mg total) by mouth 2 (two) times a day miconazole 2 % powder -- 12/10/23 -- Jimenez Henao MD Apply topically 2 (two) times a day Patient taking differently: Apply topically 2 (two) times a day pantoprazole DR (PROTONIX) 40 mg EC tablet -- 12/11/23 12/10/24 Jimenez Henao MD Take 1 tablet (40 mg total) by mouth daily Patient taking differently: Take 1 tablet (40 mg total) by mouth every morning ramelteon (ROZEREM) 8 mg tablet -- -- -- Fidelia Perdue MD senna-docusate (PERICOLACE) 8.6-50 mg -- 12/10/23 -- Jimenez Henao MD Take 1 tablet by mouth nightly Patient taking differently: Take 1 tablet by mouth nightly tamsulosin (FLOMAX) 0.4 mg extended release capsule -- 12/10/23 01/09/24 Jimenez Henao MD Take 2 capsules (0.8 mg total) by mouth daily with dinner Patient taking differently: Take 2 capsules (0.8 mg total) by mouth nightly 2 tablets No current facility-administered medications for this encounter. Current Outpatient Medications: acetaminophen 500 mg capsule acyclovir (ZOVIRAX) 400 mg tablet ascorbic acid (VITAMIN C ORAL) bisacodyL (DULCOLAX) 10 mg suppository cholecalciferol (VITAMIN D-3) 5,000 unit capsule cyclobenzaprine (FLEXERIL) 5 mg tablet DILT-XR 240 mg 24 hr capsule enoxaparin (LOVENOX) 80 mg/0.8 mL syringe furosemide (LASIX) 40 mg tablet gabapentin (NEURONTIN) 600 mg tablet guaiFENesin (ROBITUSSIN) syrup 100 mg/5 mL levETIRAcetam (KEPPRA) 1,000 mg tablet miconazole 2 % powder pantoprazole DR (PROTONIX) 40 mg EC tablet ramelteon (ROZEREM) 8 mg tablet senna-docusate (PERICOLACE) 8.6-50 mg tamsulosin (FLOMAX) 0.4 mg extended release capsule Social History Tobacco Use Smoking Status Former Packs/day: 1 Types: Cigarettes Start date: 1968 Quit date: 1979 Years since quittin.1 Passive exposure: Never Smokeless Tobacco Never Alcohol Use: Not At Risk (12/11/2023) AUDIT-C Frequency of Alcohol Consumption: 4 or [...] were no vitals filed for this visit. Relevant diagnostics: ECG(s): 10/25/23: Normal sinus rhythm [...] to visualize the bilateral iliac veins. Other: 11/30/23: CT: MPRESSION: 1. Somewhat limited evaluation of the systemic venous clot burden secondary to technique. However there appears to be clot that extends inferiorly from the inferior vena cava filter into the iliac vasculature bilaterally and into the common femoral artery and veins bilaterally. Comparison to the prior examination is also limited by technique, and the prior examination the portal venous phase was used. The common correlation with lower extremity Doppler studies to confirm presence of clot within the common femoral veins. No definite involvement of the renal veins bilaterally. 2. Interval decrease in size of a left renal subcapsular fluid collection/hematoma. 3. Diffuse body wall edema appears increased when compared to the prior examination. There are large bilateral hydroceles. 4. Postsurgical changes of posterior decompression spinal fusion in the thoracolumbar spine are grossly stable. 5. Stable left extrarenal pelvis with suggestion of stable mild hydronephrosis. A left ureteral stent is in place. 11/19/23: CT IMPRESSION: 1. Interval decreased size of left perinephric hematoma with new left hydronephrosis there are stones in the left proximal ureter. There is a left double J stent in place, however it is unclear if this is working. 2. Shook catheter in place with the balloon inflated in the proximal bulbar urethra and tip terminating near the vesicourethral anastomosis. 11/14/23: Cspine XR: IMPRESSION: 1. Unchanged combined posterior and anterior instrumented L4-L5 fusion. PT: 11/30/2023: 11.8 sec INR: 11/30/2023: 1.04 APTT: 12/05/2023: 81 sec (H) Hgb A1C: No results found for requested labs within last 30 days. CBC RBC: 12/17/2023: 3.25 M/cumm (L) RDW: No results found for requested labs within last 30 days. MCHC: 12/17/2023: 32.5 g/dL MCH: 12/17/2023: 30.8 pg MCV: 12/17/2023: 94.8 fL Hct: 12/17/2023: 30.8 % (L) Hgb: 12/17/2023: 10.0 g/dL (L) WBC: 12/17/2023: 5.2 K/cumm MPV: 12/17/2023: 11.0 fL Platelets: 12/17/2023: 317 K/cumm RDW CV: 12/17/2023: 15.2 % (H) RDW Sd: 12/17/2023: 53.0 fL (H) BMP Glucose: 12/17/2023: 95 mg/dL Calcium: 12/17/2023: 9.1 mg/dL Sodium: 12/17/2023: 140 mmol/L Potassium: 12/17/2023: 3.5 mmol/L CO2: 12/17/2023: 31 mmol/L Chloride: 12/17/2023: 100 mmol/L BUN: 12/17/2023: 17 mg/dL Creatinine: 12/17/2023: 0.76 mg/dL (L) Joni index score: 55 RIAL DISPOSITION INSPECTOR RIAL DISPOSITION INSPECTOR documented in this encounter Nursing Notes * Kishan Hanson RN - 12/27/2023 12:58 PM CST Pt is being discharged today, transferring to a SNF. NARENDRA Atkinson at [facility] was given reportregardign this pt. Ambulance pickup at 2PM. VSS, AOx4, tolerates diet well. Pt will be given CHG bath prior leaving. Pt going to SNF with L nephrostomy tube. Shook was removed as per order. RIAL DISPOSITION INSPECTOR documented in this encounter Miscellaneous Notes * Provider Query - Dolores Gonzalez NP - 12/27/2023 3:13 PM CST Please clarify the present on admission status of the secondary diagnosis being evaluated, monitored, and treated, then document in the medical record and on this form. __X__ Paraplegia was present on admission ____ Paraplegia was NOT present on admission ____ Other (please specify below) ____ Provider is clinically unable to determine or further clarify a diagnosis Additional Provider Response: Clinical Indicators: 73 year old male from [facility] w/kidney stone s/p stent removal and left percutaneous nephrostomy tubeon 12/26/23. 12/20 CPAP: Functional capacity: <4 METs, ambulates with assistance only and cannot ambulate Patient Active Problem List: Paralysis of both lower limbs (11/07/2023) 12/25 Case management: ??? s/p decompression surgery 10/2023 c/b cardiac arrest post-op and hematomas/p evacuation (11/07/23) with resulting LE paralysis ??? prefers discharge to [facility] ???Functional status: bedbound Additional Information: Patient typically resides in a private residence with his spouse. Prior to initial L4-5 fusion, patient was independent. Now, patient states he is a bhavna lift from bed to wheelchair. 12/26 IR Pre-procedure assessment: Patient Active Problem List: Paralysis of both lower limbs (11/07/2023) Use of terms such as likely, suspected, possible, or probable (associated with a specific diagnosisthat is being evaluated, monitored, or treated as if it exists) are acceptable and can be coded in the inpatient setting when documented at the time of discharge. This documentation will become part of the patient's medical record. RIAL DISPOSITION INSPECTOR * ACP (Advance Care Planning) - Nora Last LCSW - 12/27/2023 11:03 AM MATERIAL DISPOSITION INSPECTOR Advance Care Planning Advance Care Planning Conversation The patient and/or family consented to a voluntary Advance Care Planning conversation. Individuals present for the conversation: patient Advance Directive: Yes On file: Yes Power of Senior Hardware Design Engineer Name: Val Evans Relationship: Spouse Summary of the conversation: The patient has an advanced directive on file and the DPOA is Val Evans, spouse, . Patient confirmed that document is still accurate. Outcome of the conversation and documents completed (select all that apply): ACP documents already on file and patient confirmed that they are accurate. The services provided in this conversation and described in this note are non- billable and to be used for ongoing clinical care only. Nora Last LCSW RIAL DISPOSITION INSPECTOR * Initial Assessments - Nora Last LCSW - 12/27/2023 10:59 AM MATERIAL DISPOSITION INSPECTOR Social Work Assessment Clinical Dx: Nephrolithiasis Past Medical History: Date of last inpatient admission: Previous admit date: 11/29/2023 Number of inpatient admissions in past year: 4 Reason for Current Hospitalization (Pt/Caregiver Stated): Surgery (12/27/23 1052) Patient Information: Information Obtained From: Patient Marital Status: Does Pt have Legal Guardian, Surrogate Decision Maker or Healthcare Agent? : Yes-DPOA DPOA Name/Phone: Val Evans, spouse, Employment Status: Retired Payor Source: Medicare advantage Race: White/ Ethnicity: Non- Sexual Orientation : BIBI Gender Identity: Male Service : None (12/27/231051) Current Situation: Current Situation Living Arrangements: Spouse/significant other Type of Residence: Private residence Income: Fci/Pension Income Comment: Patient is retired Financial assistance: Unknown Education Level : Advanced College Degree How do you Pay for Medication: Insurance Current Transportation: Own vehicle, Family/friends What do you do with your Free Time: Travel (12/27/231051) Legal History: Legal History Legal Information : No legal issues (12/27/231051) Support Systems and Spirituality: Support Systems and Spirituality Support System: Spouse, Children Spouse Name/Contact Information: Val Evans, spouse, Children Name/Contact Information: Marcial Evans, son, Participation from Patient's Support System: Patient's family appear involved and supportive and concerned for the patient's welfare Support Contact Name/Number: See above Family Perspective: BIBI Do you have a Islam Preference or Affiliation?: Yes Preference/Affiliation : Atheist Are there any Islam Practices that are important to maintain while admitted?: No Do you have Cultural Factors that are important to you?: No Description of Childhood: BIBI History of physical abuse? : No History of physically abusing others? : No History of sexual abuse?: No History of sexually abusing others? : No History of Mental/Emotional Abuse? : No (12/27/231051) Strengths, Assets, Liabilities and Stressors: Strengths, Assets, Liabilities, and Stressors Strengths (Must Choose Two): Exercising self-direction, Vocational interests, i.e., hobbies, Interpersonal relationships and supports,i.e., family, friends, peers, Access to housing/residential stability, Financial stability Patient Assets: Home, Income, Insured, Supportive family, Transportation Hope and Strength during Difficult Times: Family Does Pt have access to Employee Assistance Program: No Patient Barriers : Poor physical health Current Stressors: Chronic illness (12/27/231051) SDOH Transportation Needs: No Transportation Needs (12/27/2023) PRAPARE - Transportation Lack of Transportation (Medical): No Lack of Transportation (Non-Medical): No Financial Resource Strain: Low Risk (12/27/2023) Overall Financial Resource Strain (CARDIA) Difficulty of Paying Living Expenses: Not hard at all Housing Stability: Low Risk (12/27/2023) Housing Stability Vital Sign Unable to Pay for Housing in the Last Year: No Number of Places Lived in the Last Year: 1 Unstable Housing in the Last Year: No Social Connections: Moderately Isolated (12/27/2023) Social Connection and Isolation Panel [NHANES] Frequency of Communication with Friends and Family: More than three times a week Frequency of Social Gatherings with Friends and Family: More than three times a week Attends Islam Services: Never Active Member of Clubs or Organizations: No Attends Club or Organization Meetings: Never Marital Status: Food Insecurity: No Food Insecurity (12/27/2023) Hunger Vital Sign Worried About Running Out of Food in the Last Year: Never true Ran Out of Food in the Last Year: Never true Tobacco Use: Medium Risk (12/26/2023) Patient History Smoking Tobacco Use: Former Smokeless Tobacco Use: Never Passive Exposure: Never Alcohol Use: Alcohol Misuse (12/25/2023) AUDIT-C Frequency of Alcohol Consumption: 4 or more times a week Average Number of Drinks: 1 or 2 Frequency of Binge Drinking: Less than monthly PHQ Screening Over the last 2 weeks, how often have you been bothered by any of the following problems? Little Interest or Pleasure in Doing Things: Not at all Feeling Down, Depressed, or Hopeless: Not at all PHQ-2 Total Score (If total score is 3 or more points, staff should administer the PHQ-9): 0 Over the past 2 weeks, how often have you been bothered by any of the following problems? Little Interest or Pleasure in Doing Things: Not at all Feeling Down, Depressed, or Hopeless: Not at all PHQ-2 Total Score (If total score is 3 or more points, staff should administer the PHQ-9): 0 Substance Delivery Method Questions Responses Method of Use Ingestion Current/Former Smokers - Passive Exposure Questions Responses Current/Former Smoker - passive exposure (e.g., household member smoking)? Yes E-Cigarette/Vaping Questions Responses E-cigarette/Vaping Use Never User Substance Abuse, Mental Health, and Trauma History: Chemical Dependency, Mental Health & Trauma History Chemical Dependency: None Mental Health: None (12/27/23 1052) Risk to Self and Others: Risk to Self and Others Violence risk to self in past 6 months? : No Self Harm/Suicidal Ideation Plan: No Previous Self Harm/Suicidal Attempts: No Violence risk to others in past 6 months? : No Any lifetime risk of violence to others? : No Current Plans to Harm Another: No Previous Plans to Harm Another: No (12/27/23 1052) Impressions and Recommendations: Predictive Model Details 34% (High Risk) Factor Value Calculated 12/27/2023 10:04 21% Number of active inpatient medication orders 43 Risk of Unplanned Readmission Model 12% Number of ED visits in last six months 3 10% Number of hospitalizations in last year 3 7% Diagnosis of cancer present 7% ECG/EKG order present in last 6 months 5% Encounter of ten days or longer in last year present 5% Diagnosis of electrolyte disorder present 5% Restraint order present in last 6 months 5% Imaging order present in last 6 months 4% Latest hemoglobin low (10.1 g/dL) 4% Phosphorous result present 4% Age 73 3% Diagnosis of deficiency anemia present 3% Active anticoagulant inpatient medication order present 2% Charlson Comorbidity Index 2 1% Current length of stay 2.063 days 1% Future appointment scheduled 1% Active ulcer inpatient medication order present PM Lumbar Disc Herniation s/p decompression surgery 10/2023 c/b cardiac arrest post-op and hematoma s/p evacuation (11/07/23) with resulting LE paralysis, DVT/PE s/p IVC filter (not on A/C currently), HTN. The patient is a 73 year-old male who was readmitted to [facility] for scheduled cystoscopy, left ureteroscopy, left retrograde pyelogram for kidney stone extraction. Social work completed assessment due to 34% readmission risk, 30 day readmit, 4 inpatient hospitalizations within the past year. The patient had good eye contact and was forthcoming with information. The patient has an advanced directive on file and the DPOA is Val Evans, spouse, . Patient reported family will assist with his transportation needs. Patient did not identify any concerns with housing, financial strain, or food insecurity. Patient has the insurance [facility] Medicare. Patient declined to be provided with any community resources at this time. No further Social Work interventions identified. Social Work will sign off. Nora Last LCSW RIAL DISPOSITION INSPECTOR * Plan of Care - Bharti Viramontes RN - 12/27/2023 12:30 AM CST Problem: Health Behavior: Goal: Understanding of discharge needs will improve Outcome: Progressing Problem: Skin Integrity Impairment Risk Goal: Mobility will improve Outcome: Progressing Goal: Understanding of ways to prevent future skin breakdown will improve Outcome: Progressing Goal: Nutritional status will improve Outcome: Progressing Goal: Risk for impaired skin integrity will decrease Outcome: Progressing Problem: Lack of Knowledge Goal: Ability to develop a pain control plan will improve Outcome: Progressing Problem: Medication Goal: Satisfaction with pain management medication regimen will improve Outcome: Progressing Problem: Sensory Goal: Ability to identify factors that increase pain levels will improve while working to decrease the patient's pain levels Outcome: Progressing Problem: Coping Goal: Ability to cope will improve Outcome: Progressing Problem: Genitourinary Goal: Absence of urinary retention Outcome: Progressing Goal: Urinary catheter remains patent Outcome: Progressing Goals: Clinical Goals for the Shift: monitor vitals and I&O's, pain management, shook care, nephrostomy care Summary: vitals and I&O's stable, patient is not complaining of any pain, shook and nephrostomyoutput good, shook and nephrostomy care completed, frequent turns completed RIAL DISPOSITION INSPECTOR * Plan of Care - Kishan Hanson RN - 12/26/2023 4:07 PM CST Problem: Health Behavior: Goal: Understanding of discharge needs will improve Outcome: Progressing Problem: Skin Integrity Impairment Risk Goal: Mobility will improve Outcome: Progressing Goal: Understanding of ways to prevent future skin breakdown will improve Outcome: Progressing Goal: Nutritional status will improve Outcome: Progressing Goal: Risk for impaired skin integrity will decrease Outcome: Progressing Problem: Lack of Knowledge Goal: Ability to develop a pain control plan will improve Outcome: Progressing Problem: Medication Goal: Satisfaction with pain management medication regimen will improve Outcome: Progressing Problem: Sensory Goal: Ability to identify factors that increase pain levels will improve while working to decrease the patient's pain levels Outcome: Progressing Problem: Coping Goal: Ability to cope will improve Outcome: Progressing Problem: Genitourinary Goal: Absence of urinary retention Outcome: Progressing Goal: Urinary catheter remains patent Outcome: Progressing Goals: Clinical Goals for the Shift: Monitor VS & I/Os, pain management, Shook care, IR procedure Summary: Pt now has a new nephrostomy tube placed by IR on the left side, output is bloody. Shook catheter is clearing, now yellow urine. No complaints of pain. VSS, AOx4, transferred to a specialty bed. RIAL DISPOSITION INSPECTOR * Plan of Care - Estella Maxwell RN - 12/26/2023 3:00 PM CST LUIS called and spoke with Torey from [facility] ([phone]). Patient is OK for discharge tomorrow. Report: [phone] RIAL DISPOSITION INSPECTOR * Post-Procedure Note - Dennis Albarado MD - 12/26/2023 1:05 PM MATERIAL DISPOSITION INSPECTOR Radiology Brief Post Procedure Note Attending: Dr. Romero Casino Accountant: Dr. Albarado Sedation/Anesthesia: Min Sedation Pre-Op/Pre-Procedure Diagnosis: Severe left ureteral stricture Post-Op/Post-Procedure Diagnosis: same Procedure Performed: left PCN placement Procedure Findings: Successful left PCN placement, nephrostogram consistent with severe left mid ureteral stricture. PLAN: -Monitor for severe pain, chart output -Maintain drain to gravity -IR follow up change and possible internalization in 6-8 weeks -IR to follow Complications: None Estimated Blood Loss: < 30 ml Specimens: None Condition: Stable Full report to follow. RIAL DISPOSITION INSPECTOR * Plan of Care - Estella Maxwell RN - 12/26/2023 9:43 AM CST Per Medical Chart/Rounds/IDR: Patient admitted with stone, plan for left nephU tube placement in IRto. He is not medically ready for discharge to SNF. ADD: 12/27 Plan & referrals made/in place: LUIS left voicemail for Torey with [facility] ([phone]). [facility] [phone] Support following discharge: facility staff; spouse Val Evans [phone]; son Marcial Evans [phone] Transportation: ambulance F/U Appointments: per medical team Patient's Identified Problem/Goal Problem: Ensure acute medical needs are met and that patient has a safe discharge plan. Goal: Secure a discharge plan that patient/family are agreeable with and ensure patient has continuum of care. Patient and/or family are agreeable with plan. seniour insight manager will continue to follow and assist with discharge planning as needed. If any further discharge needs arise, please contact the covering sample case porter. RIAL DISPOSITION INSPECTOR * Pre-Procedure Note - Cici Garces MD - 12/26/2023 5:56 AM MATERIAL DISPOSITION INSPECTOR PRE-SEDATION ASSESSMENT/H&P Patient is a 73 y.o. male with chief complaint of left ureteral stricture. Procedure: Left nephrostomy tube placement Indications/History: 73-year-old man with a history of DVT (with IVC filter), left ureteral stones status post staged stone extraction found to have a mid ureteral stricture. IR consulted for placement of nephrostomy tube or antegrade stent. He initially presented with a complex UTI in 10/2023, requiring ureteral stent and nephrostomy and developed a perinephric hematoma post-operatively. He underwent staged ureteroscopy most recently with stone extraction on 12/25. His indwelling left ureteral stent was removed during the procedure. A guidewire could not traverse a mid left ureteral stricture. Follow up CT urogram demonstrates mild left hydroureteronephrosis with a mid ureteral stricture and resolving left renal subcapsular collection Lovenox on hold from 12/24 AM. Cr 0.82, PLT 224, INR pending PMH: Patient Active Problem List Diagnosis Date Noted Nephrolithiasis 12/25/2023 DVT (deep venous thrombosis) (CMS/HCC) (HCC) 11/29/2023 Anemia 11/29/2023 Paraspinal hematoma 11/29/2023 Hyponatremia 11/29/2023 Elevated transaminase level 11/29/2023 Lower extremity edema 11/29/2023 Scrotal swelling 11/29/2023 Seizure ([facility]) 11/29/2023 Prediabetes 11/29/2023 Kidney stone 11/09/2023 Paralysis of both lower limbs ([facility]/HCC) ([facility]) 11/07/2023 Pulmonary embolism ([facility]) 10/26/2023 S/P spinal fusion 10/23/2023 Cardiac arrest ([facility]) 10/23/2023 Left perinephric collection, 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 10/15/2023 Ureteral colic 10/13/2023 UTI (urinary tract infection) 10/13/2023 Hydronephrosis with urinary obstruction due to renal calculus 10/12/2023 Lumbar radiculopathy 10/08/2023 Gross hematuria 10/18/2022 Bladder neck obstruction 10/17/2022 Lesion of urinary bladder 10/17/2022 Prostate cancer ([facility]) 10/17/2022 HTN (hypertension) 10/10/2021 Risk factors for obstructive sleep apnea 10/10/2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 Presence of right artificial knee joint 10/25/2018 Primary osteoarthritis of left knee 10/25/2018 Localized adiposity 07/17/2018 Knee pain 10/24/2016 History of Sedation/Anesthesia Complications: No History of Difficult Airway: No HISTORY PSH Past Surgical History: Procedure Laterality Date CYSTOSCOPY 10/13/2023 pyelogram retrograde CYSTOSCOPY Left 10/18/2023 ureter stent, pyelogram retrograde CYSTOSTOMY W/ BLADDER BIOPSY 11/2022 FL UPPER GI AIR CONTRAST W KUB Left 09/21/2023 INSERT VENA CAVA FILTER N/A 11/09/2023 LUMBAR LAMINECTOMY 10/23/2023 with fusion L4-5 MELANOMA RESECTION Right 2006 flank PERCUTANEOUS NEPHROSTOMY PCN LEFT Left 10/14/2023 removed 10/18/2023 PROSTATECTOMY 2009 REPLACEMENT TOTAL KNEE Right 2014 [...] date: 1968 Quit date: 1979 Years since quittin.1 Passive exposure: Never Smokeless tobacco: Never Substance and Sexual Activity Drug use: Yes Frequency: 2.0 times per week Types: Medical marijuana Sexual activity: Yes Partners: Female control/protection: Vasectomy Alcohol Use: Alcohol Misuse (12/25/2023) AUDIT-C Frequency of Alcohol Consumption: 4 or more times a week Average Number of Drinks: 1 or 2 Frequency of Binge Drinking: Less than monthly Family History: Family History Problem Relation Age of Onset Heart disease Mother Lung disease Mother Alcohol abuse Father Cancer Father Heart disease Other Family history of cardiac disorder - (Added by PERLA Conv) Cancer Other Family history of malignant neoplasm - (Added by PERLA Conv) Anesthesia problems Neg Hx REVIEW OF SYSTEMS: Review of systems per HPI and otherwise all other systems are negative MEDICATIONS Current Meds: Current Facility-Administered Medications: acetaminophen (TYLENOL) tablet 650 mg, 650 mg, oral, Q4H PRN, Dulce Siegel MD acyclovir (ZOVIRAX) tablet 400 mg, 400 mg, oral, BID, Dulce Siegel MD, 400 mg at 12/25/23 2135 bisacodyL (DULCOLAX) suppository 10 mg, 10 mg, rectal, Nightly, Dulce Siegel MD calcium carbonate (TUMS) chewable tablet 1,000 mg, 400 mg of elemental calcium, oral, TID PRN, Nichole Mitchell MD Carrier Fluids for Secondary Infusion - 0.9% Sodium Chloride, 30 mL, intravenous, PRN, Dulce Siegel MD cyclobenzaprine (FLEXERIL) tablet 5 mg, 5 mg, oral, TID PRN, Dulce Siegel MD dilTIAZem XR (CARDIZEM CD,DILACOR XR) 24 hour capsule 240 mg, 240 mg, oral, BID, Dulce Siegel MD, 240 mg at 12/25/23 1141 [Held by Provider] enoxaparin (LOVENOX) syringe 80 mg, 80 mg, subcutaneous, Q12H CAMMY, Dulce Siegel MD furosemide (LASIX) tablet 40 mg, 40 mg, oral, BID DIURETIC, Dulce Siegel MD, 40 mg at 12/25/23 1746 gabapentin (NEURONTIN) capsule 600 mg, 600 mg, oral, TID, Dulce Siegel MD, 600 mg at 12/25/232134 Lactated Ringer's (LR) infusion, 75 mL/hr, intravenous, Continuous, Dulce Siegel MD, Last Rate: 75 mL/hr at 12/25/238, 75 mL/hr at 12/25/23 233 levETIRAcetam (KEPPRA) tablet 1,000 mg, 1,000 mg, oral, BID, Dulce Siegel MD, 1,000 mg at 12/25/232134 pantoprazole DR (PROTONIX) extended release tablet 40 mg, 40 mg, oral, QAM, Dulce Siegel MD, 40 mg at 12/25/23 1142 potassium chloride ER (KLOR-CON) extended release tablet 30 mEq, 30 mEq, oral, Q4H, Nichole Mitchell MD, 30 mEq at 12/26/23 0538 ramelteon (ROZEREM) tablet 8 mg, 8 mg, oral, Nightly, Dulce Siegel MD, 8 mg at 134 ramelteon (ROZEREM) tablet 8 mg, 8 mg, oral, Nightly PRN, Nichole Mitchell MD senna-docusate (PERICOLACE) 8.6-50 mg per tablet 1 tablet, 1 tablet, oral, Nightly, Dulce Siegel MD, 1 tablet at 12/25/23 213 simethicone (MYLICON) chewable tablet 80 mg, 80 mg, oral, BID PRN, Nichole Mitchell MD sodium chloride 0.9% flush 0.5-20 mL, 0.5-20 mL, intra-catheter, Q8H CAMMY, Dulce Siegel MD, 10 mL at 12/25/23 1245 sodium chloride 0.9% flush 0.5-20 mL, 0.5-20 mL, intra-catheter, PRN, Dulce Siegel MD Home Meds: HOME MEDICATIONS : acyclovir (ZOVIRAX) 400 mg tablet ascorbic acid (VITAMIN C ORAL) bisacodyL (DULCOLAX) 10 mg suppository cholecalciferol (VITAMIN D-3) 5,000 unit capsule cyclobenzaprine (FLEXERIL) 5 mg tablet DILT-XR 240 mg 24 hr capsule enoxaparin (LOVENOX) 80 mg/0.8 mL syringe furosemide (LASIX) 40 mg tablet gabapentin (NEURONTIN) 600 mg tablet levETIRAcetam (KEPPRA) 1,000 mg tablet miconazole 2 % powder pantoprazole DR (PROTONIX) 40 mg EC tablet ramelteon (ROZEREM) 8 mg tablet senna-docusate (PERICOLACE) 8.6-50 mg tamsulosin (FLOMAX) 0.4 mg extended release capsule acetaminophen 500 mg capsule guaiFENesin (ROBITUSSIN) syrup 100 mg/5 mL Allergies: No Known Allergies Vitals: Vitals: 12/25/23 2130 12/25/23 2338 12/26/23 0438 12/26/23 0449 BP: 119/70 94/53 (!) 83/40 103/62 BP Location: Left arm Left arm Left arm Patient Position: Lying;HOB 30 degrees Pulse: 88 90 75 73 Resp: 18 18 Temp: 37.7 ??C (99.9 ??F) 37.1 ??C (98.8 ??F) TempSrc: Oral Oral SpO2: 97% 94% 95% 94% Weight: Height: LABS Pertinent Labs: Recent Labs Lab Units 12/26/23 0008 12/24/23 0625 12/20/23 0607 WBC K/cumm 9.4 4.5 4.7 HEMOGLOBIN g/dL 10.5* 9.8* 9.3* HEMATOCRIT % 32.4* 30.3* 29.6* PLATELETS K/cumm 189 224 253 Recent Labs Lab Units 12/26/23 0008 12/24/23 0625 12/20/23 0607 SODIUM mmol/L 142 141 141 POTASSIUM PLASMA mmol/L 3.4 3.6 3.4 CHLORIDE mmol/L 104 102 101 CO2 mmol/L 27 28 30 BUN SERUM mg/dL 13 13 15 CREATININE mg/dL 0.80 0.82 0.82 CALCIUM mg/dL 9.0 9.2 8.9 AST Units/L -- 21 23 ALT Units/L -- 25 28 Recent Labs Lab Units 12/26/23 0008 PROTIME (PT) sec 12.2 INR 1.07 APTT sec 29 IMAGING Reviewed PERTINENT PHYSICAL EXAM Constitutional: alert and oriented x3 and no acute distress Lungs: Breathing Pattern: regular, no distress Heart: Heart regular rate and rhythm Assessment: 73-year-old man with a history of DVT (with IVC filter), left ureteral stones status post staged stone extraction found to have a mid ureteral stricture. IR consulted for placement of nephrostomy tube or antegrade stent. He initially presented with a complex UTI in 10/2023, requiring ureteral stent and nephrostomy and developed a perinephric hematoma post-operatively. He underwent staged ureteroscopy most recently with stone extraction on 12/25. His indwelling left ureteral stent wasremoved during the procedure. A guidewire could not traverse a mid left ureteral stricture. Follow up CT urogram demonstrates mild left hydroureteronephrosis with a mid ureteral stricture and resolving left renal subcapsular collection Airway Exam: normal ASA Classification:Class 3: Patient with severe systemic disease Sedation Plan: Min Sedation Adjunctive Procedures: None NONE PO status: Last PO: NPO since midnight I have reviewed the above FABBY/resident/fellows note and agree with the assessment and plan as written. The benefits, risks and alternatives of procedure have been discussed with the patient and/or their arborist representative. Patient or arborist representative was informed that the provider getting consent may not be the same provider performing procedure. All questions answered and agree to proceed. Cici Knight MD 12/26/2023 11:32 AM RIAL DISPOSITION INSPECTOR RIAL DISPOSITION INSPECTOR * Plan of Care - Bharti Viramontes RN - 12/26/2023 1:58 AM CST Problem: Health Behavior: Goal: Understanding of discharge needs will improve Outcome: Progressing Problem: Skin Integrity Impairment Risk Goal: Mobility will improve Outcome: Progressing Goal: Understanding of ways to prevent future skin breakdown will improve Outcome: Progressing Goal: Nutritional status will improve Outcome: Progressing Goal: Risk for impaired skin integrity will decrease Outcome: Progressing Goals: Clinical Goals for the Shift: monitor vitals and I&O's, pain management, NPO at midnight Summary: vitals and I&O's stable, patient stated he has no pain, patient is NPO at midnight, liliana bed ordered since patient is bed bound RIAL DISPOSITION INSPECTOR * Plan of Care - Estella Mxawell RN - 12/25/2023 3:05 PM CST LUIS received call from Jennifer with [facility]. Patient was anticipated to discharge from [facility] to [facility] tomorrow. There was a peer to peer today that was approved for SNF. Jennifer provided contact information for facility. [facility] [phone] [facility]IN referral placed. LUIS called and spoke with [facility] who is going to make sure that insurance auth is valid for patient to discharge from hospital vs discharge from rehab. RIAL DISPOSITION INSPECTOR * Initial Assessments - Estella Maxwell RN - 12/25/2023 2:04 PM CST LUIS Initial Assessment Interview Note Information Obtained From: Patient (at bedside) (12/25/23 1401) Admission Source: [facility] Impression: 73 year old male admitted following cystosopy, retrograde pyelogram, ureteroscopy for stone extraction. PMH Lumbar Disc Herniation s/p decompression surgery 10/2023 c/b cardiac arrest post-op and hematoma s/p evacuation (11/07/23) with resulting LE paralysis, DVT/PE s/p IVC filter (not on A/C currently), HTN. Plan Includes: Patient would prefer to discharge to [facility]. He states they submitted an appeal to insurance yesterday. If insurance denies, he would prefer to discharge to [facility]. He will need ambulance transportation at discharge. CM called and left voicemail for Jennifer with [facility] to follow up on appeal/rehab status. [facility] referral placed to [facility]. Primary Source of Transportation: Does the patient need discharge transport arranged?: Yes Details of Transportation: Ambulance (12/25/231400) Health Insurance Coverage: [employer] Medicare Prescription Coverage: yes Pharmacy: verified [facility] - [place], [place] - [address] [facility] [address] Primary Care Provider: Rl Barnett DO Prior to Admission: Functional Status: Bedbound Primary Caregiver: Facility staff Support System: Spouse/Significant Other, Children (spouse Val Evans [phone]; son Marcial Evans [phone]) Home Care Services: No Outpatient Services: No Durable Medical Equipment: Walker (wheeled), Cane (3 prong) Living Arrangements: Spouse/significant other Type of Residence: Private residence Steps in home?: Yes, Outside of home Number of steps outside: 2 steps Medication management: Needs Assistance (Comment) (per facility) (12/25/231400) Potential discharge needs include: Anticipate dc to IRF vs SNF. Dialysis: N/A Behavioral Health Services: Behavioral Health Services: No (12/25/231400) Patient expects to be Discharged to: Acute Rehab, (12/25/231400) Additional Information: Patient typically resides in a private residence with his spouse. Prior to initial L4-5 fusion, patient was independent. Now, patient states he is a bhavna lift from bed to wheelchair. Role of CM explained. Patient's Identified Problem/Goal Problem: Ensure acute medical needs are met and that patient has a safe discharge plan. Goal: Secure a discharge plan that patient/family are agreeable with and ensure patient has continuum of care. Case management will follow for discharge planning and send referrals as needed. Goals include: To assure continuity of care, To maximize coping skills, To assure patient is in a safe environment and To assure access to community resources. Plan includes: 1. Collaboration with patient, MD, direct care nurse, Director Of Digital Technology, and other members of the health care team to assure needed interventions completed. 2. Return patient to optimal level of self-care post discharge. 3. Fuel Conversion Technician will follow for Discharge Planning - interventions as needed 4. Anticipated level of care at discharge 5. Planned Discharge Disposition Based on a comprehensive family assessment, assistance with instrumental activities of daily livingafter discharge will be provided by facility staff. Through the course of our work I determined that the facility staff possesses the skill and abilityto provide and monitor the care of the patient when he or she returns home. Facility staff has the capacity to provide/monitor/arrange for the care of the patient. Finally, we determined that facility staff has the knowledge of available resources and that combining them with their existing resources will suffice to sustain and care for the patient when he or she returns home. The treatment team is aware of this information. All are in agreement with the aftercare plan. Estella Maxwell RN RIAL DISPOSITION INSPECTOR * Plan of Care - Katharine Montgomery RN - 12/25/2023 10:59 AM CST Problem: Health Behavior: Goal: Understanding of discharge needs will improve Outcome: Progressing Problem: Skin Integrity Impairment Risk Goal: Mobility will improve Outcome: Progressing Goal: Understanding of ways to prevent future skin breakdown will improve Outcome: Progressing Goal: Nutritional status will improve Outcome: Progressing Goal: Risk for impaired skin integrity will decrease Outcome: Progressing Goals: Summary: Patient arrived from PACU. Monitor I&Os. Pain controlled. VSS. RIAL DISPOSITION INSPECTOR * Op Note - Temo Mcintosh MD - 12/25/2023 7:30 AM CST Operative Report SURGEON: Temo Mcintosh MD SURGICAL TEAM: Surgeons and Role: * Temo Mcintosh MD - Primary * Dulce Siegel MD - Resident - Assisting DATE OF SURGERY : 12/25/2023 PREOPERATIVE DIAGNOSIS: Pre-op Diagnosis * Kidney stone [N20.0] POSTOPERATIVE DIAGNOSIS: Post-op Diagnosis * Kidney stone [N20.0] PROCEDURE: Cystoscopy, left ureteral stent removal Left ureteroscopy, basket stone extraction Left retrograde pyelogram ANESTHESIA: General INDICATION FOR PROCEDURE: 73-year-old man with complex urologic history more recently treated for a heavily impacted ureteralstone that now presents for staged ureteroscopy to confirm stone clearance. OPERATIVE NOTE: Findings: Surgically absent prostate with evidence of resolving false passage Encrusted indwelling ureteral stent Ureteroscopy with mid-ureteral stone which was basket extracted High-grade mid-ureteral stricture that could not be cannulated with multiple glide wire attempts The patient was identified in the preoperative unit where consent was obtained. He was then transported to the operating room and placed on operating room table in supine position. General anesthesiawas induced and perioperative antibiotics were given. He was moved to dorsal lithotomy taking care to pad all pressure points. SCDs were on and functioning. The genitals were prepped and draped in normal sterile fashion. A time-out was performed confirming the correct patient and procedure. We started the case by atraumatically introducing a 22 Wallisian rigid cystoscope into the urethra. Inthe proximal urethra we noted a surgically absent prostate. There was a small defect located at the6 o'clock position, this was suspicious for a healing false passage. The bladder neck was widely open but somewhat fixed. We identified indwelling stent emanating from the left ureteral orifice that was moderately encrusted. The stent was brought down to the urethral meatus and subsequently cannulated with a 0.035 in guidewire. The guidewire would not advance into the kidney. Ultimately we removed the stent without access to the kidney. A flexible ureteroscope was introduced into the ureter. In the mid to proximal ureter we identifieda well-formed stone. This was basket extracted. Manipulation of the scope would not allow for access to the proximal ureter. We could not identify a lumen. A retrograde pyelogram was repeated and showed an abrupt transition point at this level. We attempted to probe the proximal ureter with a Glidewire under spot fluoroscopy. Glidewire could be seen coiling in the ureter. After multiple attempts we elected to abort this procedure in favor of the obtaining antegrade access. This concluded the case. There were no immediate complications. The bladder was drained and cystoscope was removed. A new Shook catheter was placed with sterile water being inserted into the balloon.Anesthesia was reversed and the patient was transported to PACU in stable condition. We will plan on postoperative CT to confirm stone clearance. As highlighted above, we will consult Interventional Radiology to attempt an antegrade stent versus nephrostomy tube. If an antegrade stent can be placed, we can plan on scheduled stent exchanges to manage this high-grade stricture. Giventhe patient's advanced competing medical comorbidity, he is not a ideal candidate for reconstructive surgery at this time. Estimated Blood Loss: None Blood/Blood Products Transfused: None Complications: None Condition on Discharge from the operating room was stable Temo Mcintosh MD Date: 12/25/2023 Time: 8:17 AM TEACHING ATTESTATION : I was present and directly participated in the entire procedure (including opening and closing). RIAL DISPOSITION INSPECTOR * Perioperative Nursing Note - Crystal Sprague RN - 12/12/2023 3:27 PM CST Heaters for Preoperative Assessment and Planning Perioperative Nursing Note Telephone Preoperative Evaluation ([facility]) - TELEPHONE ONLY, NO PHYSICAL EXAM Date: 12/12/23 This assessment was completed with the patient. Vitals: 12/11/23 1708 Weight: 90.7 kg (200 lb) Height: 172.7 cm (5' 8 ) CHEST CIRCUMFERENCE: N/A Social History Tobacco Use Smoking Status Former Packs/day: 1 Types: Cigarettes Start date: 1968 Quit date: 1979 Years since quittin.1 Passive exposure: Never Smokeless Tobacco Never Substance and Sexual Activity Drug Use Yes Frequency: 2.0 times per week Types: Medical marijuana Alcohol Use Q1: How often do you have a drink containing alcohol?: 4 or more times a week Q2: How many drinks containing alcohol do you have on a typical day when you are drinking?: 1 or 2 Q3: How often do you have six or more drinks on one occasion?: Never Outpatient Medications Marked as Taking for the 12/25/23 encounter (Hospital Encounter) Medication Sig Dispense Refill acetaminophen 500 mg capsule Take 2 capsules (1,000 mg total) by mouth every 6 (six) hours as needed for pain (Patient taking differently: Take 2 capsules (1,000 mg total) by mouth every 6 (six) hours as needed for pain 2 tablets) acyclovir (ZOVIRAX) 400 mg tablet Take 1 tablet (400 mg total) by mouth 2 (two) times a day ascorbic acid (VITAMIN C ORAL) Take 1 tablet by mouth 2 (two) times a day bisacodyL (DULCOLAX) 10 mg suppository Insert 1 suppository (10 mg total) into the rectum daily as needed for constipation (Patient taking differently: Insert 1 suppository (10 mg total) into the rectum nightly) cholecalciferol (VITAMIN D-3) 5,000 unit capsule Take 1 capsule (5,000 Units total) by mouth every morning cyclobenzaprine (FLEXERIL) 5 mg tablet Take 1 tablet (5 mg total) by mouth 3 (three) times a day asneeded for muscle spasms DILT-XR 240 mg 24 hr capsule Take 1 capsule (240 mg total) by mouth 2 (two) times a day enoxaparin (LOVENOX) 80 mg/0.8 mL syringe Inject 0.8 mL (80 mg total) under the skin every 12 (twelve) hours (Patient taking differently: Inject 0.8 mL (80 mg total) under the skin 2 (two) times a day) furosemide (LASIX) 40 mg tablet Take 1 tablet (40 mg total) by mouth 2 (two) times a day (Patient taking differently: Take 1 tablet (40 mg total) by mouth 2 (two) times a day) gabapentin (NEURONTIN) 600 mg tablet Take 1 tablet (600 mg total) by mouth 3 (three) times a day guaiFENesin (ROBITUSSIN) syrup 100 mg/5 mL Take 10 mL (200 mg total) by mouth 4 (four) times a day as needed for cough levETIRAcetam (KEPPRA) 1,000 mg tablet Take 1 tablet (1,000 mg total) by mouth 2 (two) times a day (Patient taking differently: Take 1 tablet (1,000 mg total) by mouth 2 (two) times a day) miconazole 2 % powder Apply topically 2 (two) times a day (Patient taking differently: Apply topically 2 (two) times a day) pantoprazole DR (PROTONIX) 40 mg EC tablet Take 1 tablet (40 mg total) by mouth daily (Patient taking differently: Take 1 tablet (40 mg total) by mouth every morning) ramelteon (ROZEREM) 8 mg tablet Take 1 tablet (8 mg total) by mouth nightly senna-docusate (PERICOLACE) 8.6-50 mg Take 1 tablet by mouth nightly (Patient taking differently: Take 1 tablet by mouth nightly) tamsulosin (FLOMAX) 0.4 mg extended release capsule Take 2 capsules (0.8 mg total) by mouth daily with dinner (Patient taking differently: Take 2 capsules (0.8 mg total) by mouth nightly 2 tablets) Implants Bone Cement [employer] 6197-9-010 Simplex P Full Dose Radiopaque Preblend Cement Bone Tobramycin - S0- [id number] - Implanted (Right) Knee Inventory item: [employer] Simplex P Full Dose Radiopaque Preblend Cement Bone [id number] Model/Cat number: [id number] Serial number: 0 Printing Supplies Sales Representative: [facility] Lot number: [id number] Device identifier: [id number] Device identifier type: [facility] As of 09/30/2019 Status: Implanted Other - see comments [employer] [id number] Kandace II 15mm Constrain Knee 5-6 Insert Articular Uhmwpe- S0 - [id number] - Implanted (Right) Knee Inventory item: [employer] Kandace Ii 15mm Constrain Knee 5-6 Insert ArticularUhmwpe [id number] Model/Cat number: [id number] Serial number: 0 Printing Supplies Sales Representative: [employer] Lot number: [id number] As of 09/30/2019 Status: Implanted [employer] [id number] Legion 10mm Screw Knee 6 Wedge Femoral - S0 - [id number] -Implanted (Right) Knee Inventory item: [employer] Legion 10mm Screw Knee 6 Wedge Femoral [id number] Model/Cat number: [id number] Serial number: 0 Printing Supplies Sales Representative: [employer] Device identifier: [id number] Device identifier type: [facility] As of 09/30/2019 Status: Implanted [employer] [id number] Legion Constrain Knee Right 6 Component Femoral Oxinium - S0 - [id number] - Implanted (Right) Knee Inventory item: [employer] Legion Constrain Knee Right 6 Component Femoral Oxinium [id number] Model/Cat number: [id number] Serial number: 0 Printing Supplies Sales Representative: [employer] Lot number: [id number] As of 09/30/2019 Status: Implanted [employer] [id number] Legion 5mm Alcon Step Knee Right Medial Left Lateral 5-6 Wedge - S0 - [id number] - Implanted (Right) Knee Inventory item: [employer] Legion 5mm Alcon Step Knee Right Medial Left Lateral5-6 Wedge [id number] Model/Cat number: [id number] Serial number: 0 Printing Supplies Sales Representative: [employer] Device identifier: [id number] Device identifier type: [facility] As of 09/30/2019 Status: Implanted [employer] [id number] Legion 15mm 160mm Press Fit Knee Stem Femoral - S0 - [id number] - Implanted (Right) Knee Inventory item: [employer] Legion 15mm 160mm Press Fit Knee Stem Femoral [id number] Model/Cat number: [id number] Serial number: 0 Printing Supplies Sales Representative: [employer] Lot number: [id number] As of 09/30/2019 Status: Implanted [employer] [id number] Legion 10mm Screw Knee 6 Wedge Femoral - S0 - [id number] -Implanted (Right) Knee Inventory item: [employer] Legion 10mm Screw Knee 6 Wedge Femoral [id number] Model/Cat number: [id number] Serial number: 0 Printing Supplies Sales Representative: [employer] Lot number: [id number] As of 09/30/2019 Status: Implanted [employer] [id number] Legion Revision Knee Right 5 Baseplate Tibial - S0 - [id number] - Implanted (Right) Knee Inventory item: [employer] Legion Revision Knee Right 5 Baseplate Tibial [id number] Model/Cat number: [id number] Serial number: 0 Printing Supplies Sales Representative: [employer] Lot number: [id number] Device identifier: [id number] Device identifier type: GS1 As of 09/30/2019 Status: Implanted [employer] [id number] Legion 15mm 160mm Press Fit Knee Stem Femoral - S0 - [id number] - Implanted (Right) Knee Inventory item: [employer] Legion 15mm 160mm Press Fit Knee Stem Femoral [id number] Model/Cat number: [id number] Serial number: 0 Printing Supplies Sales Representative: [employer] Lot number: [id number] Device identifier: [id number] Device identifier type: GS1 As of 09/30/2019 Status: Implanted [facility] 5517-F-501 Triathlon Cruciate Retain Bead Knee Left 5 Component Femoral Pa - Sn/A - [id number] - Implanted (Left) Knee Inventory item: [facility] Triathlon Cruciate Retain Bead Knee Left 5 Component Femoral Pa 5517-F-501 Model/Cat number: [id number] Serial number: N/A Printing Supplies Sales Representative: [facility] Lot number: [id number] Device identifier: [id number] Device identifier type: GS1 As of 10/17/2021 Status: Implanted [facility] 5536-B-600 Triathlon Knee 6 Baseplate Tibial Tritanium - Sn/A - [id number] - Implanted (Left) Knee Inventory item: [employer] Triathlon Knee 6 Baseplate Tibial Tritanium 5536-B-600 Model/Cat number: [id number] Serial number: N/A Printing Supp[employer] Sales Representative: [facility] Lot number: [id number] Device identifier: [id number] Device identifier type: GS1 As of 10/17/2021 Status: Implanted [facility] 4221-Y-290-E Insert Tibial Triathlon 6 H10mm Knee Bearing Condylar Stabilize Sterile - Sn/A - [id number] - Implanted (Left) Knee Inventory item: [employer] Insert Tibial Triathlon 6 H10mm Knee Bearing Condylar Stabilize Sterile 8424-J-514-E Model/Cat number: [id number] Serial number: N/A Printing Supp[employer] Sales Representative: [facility] Lot number: [id number] Device identifier: [id number] Device identifier type: GS1 As of 10/17/2021 Status: Implanted Stent [employer] Universa 6fr 28cm Firm Positioner Monofilament Tether Stent [id number] - [id number] -Implanted (Left) Ureter Inventory item: [employer] UNIVERSA 6FR 28CM FIRM POSITIONER MONOFILAMENT TETHER STENT [id number]/Cat number: [id number] Printing Supplies Sales Representative: [employer] Lot number: [id number] Size: 6x28 Device identifier: [id number] Device identifier type: GS1 As of 10/18/2023 Status: Implanted Type Not Specified [facility] 6197-9-010 Simplex P Full Dose Radiopaque Preblend Cement Bone Tobramycin - [id number] - Implanted (Right) Knee Inventory item: [facility] [employer] Simplex P Full Dose Radiopaque Preblend Cement Bone Dhoeawghkz4592-1-471 Model/Cat number: [id number] Printing Supplies Sales Representative: [facility] Device identifier: [id number] Device identifier type: GS1 As of 09/30/2019 Status: Implanted [employer] Crushed Chip Frozen Graft 30ml Bone Cancellous [id number] - [id number] - Implanted Spine Lumbar Inventory item: [employer] Crushed Chip Frozen Graft 30ml Bone Cancellous [id number] Model/Cat number: [id number] Printing Supplies Sales Representative: [employer] Lot number: [id number] As of 10/23/2023 Status: Implanted [employer] Allograft Bone Putty 2.5cc 700-025 - [id number] - Implanted Spine Lumbar Inventory item: [employer] Allograft Bone Putty 2.5CC 700-025 Model/Cat number: [id number] Printing Supplies Sales Representative: [employer] Lot number: [id number] Device identifier: [id number] Device identifier type: GS1 As of 10/23/2023 Status: Implanted [employer] Creo Od7.5 Mm L55 Mm Thread Polyaxial Spine Screw Bone Titanium 5146.1757 - [id number] - Implanted Spine Lumbar Inventory item: [employer] Cre[employer] Od7.5 Mm L55 Mm Thread Polyaxial Spine Screw Bone Titanium 5146.1757 Model/Cat number: [id number] Printing Supplies Sales Representative: [employer] As of 10/23/2023 Status: Implanted [employer] Creo Od7.5 Mm L50 Mm Thread Polyaxial Spine Screw Bone Titanium 5146.1752 - [id number] - Implanted Spine Lumbar Inventory item: [employer] Creo Od7.5 Mm L50 Mm Thread Polyaxial Spine Screw Bone Titanium 5146.1752 Model/Cat number: [id number] Printing Supplies Sales Representative: [employer] As of 10/23/2023 Status: Implanted [employer] Creo Thread Spinal Cap Locking Nonsterile 1119.0010 - [id number] - Implanted Spine Lumbar Inventory item: [employer] Thread Spinal Cap Locking Nonsterile 1119.0010 Model/Cat number: [id number] Printing Supplies Sales Representative: [employer] As of 10/23/2023 Status: Implanted [employer] Implant Spinal Sable 57w44uu 7-14mm 15 Deg 1172.1s - [id number] - Implanted Spine Lumbar Inventory item: [employer] Implant Spinal Sable 68g64mt 7-14mm 15 Deg 1172.1S Model/Cat number: [id number] Printing Supplies Sales Representative: [employer] As of 10/23/2023 Status: Implanted [employer] Creo 5.5mm 45mm Curve Daniel Spinal Titanium 1119.7045 - [id number] - Implanted Spine Lumbar Inventory item: [employer] Creo 5.5mm 45mm Curve Daniel Spinal Titanium 1119.7045 Model/Cat number: [id number] Printing Supplies Sales Representative: [employer] As of 10/23/2023 Status: Implanted [employer] Rex Tulip Navalign 30mm 7fr 50mm 65cm Introducer Sheath [id number] - [id number] -Implanted Inventory item: [employer] Tulip Navalign 30mm 7fr 50mm 65cm Introducer Sheath [id number]/Cat number: [id number] Printing Supplies Sales Representative: [employer] Lot number: [id number] As of 11/09/2023 Status: Implanted SKIN Piercings Remaining: No Wound (LDAs) Type of Wound (LDA): (patient denies) SCREENINGS Joni index score: 55 PATIENT CARE PLANNING Advance Directives (For Healthcare) Have you reviewed your Advance Directive and is it valid for this stay?: Yes Advance Directive: Patient has advance directive, copy in chart Type of Healthcare Directive: Durable power of senior attorney for health care 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 Communication Barriers: Visual Communication Needs: Glasses Assistive Devices/DME: Eyeglasses, Motorized wheelchair Hearing - Right Ear: Functional Hearing - Left Ear: Functional Discharge Planning Type of Residence: Other (Comment) (Rehab) Living Arrangements: Other (Comment) (rehab) Support Systems: Family members, Friends/neighbors, Spouse/significant other Patient expects to be discharged to:: Acute Rehab (Rehab facility will provide transportation to and from surgery.) FUNDS DEVELOPMENT DIRECTOR NO ADDITIONAL COMMENTS/ FOLLOW UP RIAL DISPOSITION INSPECTOR * Pre-Procedure Instructions - Crystal Sprague RN - 12/11/2023 5:34 PM [facility] ([facility] [...] remove nail coverings, artificial nails and nail palestinian prior to the day of surgery. You should leave your valuables and any jewelry at home. No metal or piercings are allowed in the operating room. You should bring your insurance card, a photo ID (example: Paper Carrier's License) and a method of payment for [...] Chart. If you are having surgery at [facility], please arrive on the day of surgery [...] Pathway to Excellent Care by the followinglink: [email or web address] How To Prepare Your Skin For Surgery [...] Remove nail coverings, artificial nails and nail palestinian. Place clean linens on your bed the [...] questions, please call the CPAP Staff at [phone], Sunday-Sunday 8am-4:30pm. All patients should read the below section: COVID 19 Updates & Visitor Policy: Please access [email or web address] for the most updated information. Information on [facility] the [facility] Center: Please view [email or web address] (Patient & Visitor Information) for additional details regarding Advanced Directive forms, AWARE, directions, parking information, lodging, Internet access, dining and more. Information on [facility] or [facility] ([facility]): Please view [email or web address] (Patient and Visitor Information) for parking/directions and more. For MyChart information, to activate account or password recovery, please go to [email or web address] or call [phone] (toll-free: [phone]), Sun- Sunday 8am-5pm. Information for Suicide Prevention: National Suicide Prevention Lifeline (0-509- 655-JDBZ (9451)) or call or text 571. Chat resources: [email or web address]. Surgery Times: For patients having surgery @ [facility] or [facility] ([facility]), if your surgeon's office has not notified you of your surgery time by NOON THE BUSINESS DAY BEFORE your surgery, please call [phone] and ask for your surgeon's office Dr. Mcintosh. The [facility] ([facility]) does not provide arrival times for the day of surgery or provide the duration of surgery. This information is provided by your surgeon'soffice or by the center where you are having surgery. We appreciate your understanding. RIAL DISPOSITION INSPECTOR documented in this encounter Plan of Treatment Not on file documented as of this encounter Procedures Procedure Name Priority Date/Time Associated Diagnosis Comments EGFR Timed 12/27/2023 12:19 AM MATERIAL DISPOSITION INSPECTOR CBC WITHOUT DIFFERENTIAL Timed 12/27/2023 12:19 AM MATERIAL DISPOSITION INSPECTOR PHOSPHORUS Timed 12/27/2023 12:19 AM MATERIAL DISPOSITION INSPECTOR MAGNESIUM Timed 12/27/2023 12:19 AM MATERIAL DISPOSITION INSPECTOR BASIC METABOLIC PANEL Timed 12/27/2023 12:19 AM MATERIAL DISPOSITION INSPECTOR PERCUTANEOUS NEPHROSTOMY PCN LEFT ED Urgent/IP Urgent 12/26/2023 1:00 PM MATERIAL DISPOSITION INSPECTOR EGFR Routine 12/26/2023 12:08 AM MATERIAL DISPOSITION INSPECTOR APTT Routine 12/26/2023 12:08 AM MATERIAL DISPOSITION INSPECTOR PROTIME-INR Routine 12/26/2023 12:08 AM MATERIAL DISPOSITION INSPECTOR CBC WITHOUT DIFFERENTIAL Routine 12/26/2023 12:08 AM MATERIAL DISPOSITION INSPECTOR PHOSPHORUS Routine 12/26/2023 12:08 AM MATERIAL DISPOSITION INSPECTOR MAGNESIUM Routine 12/26/2023 12:08 AM MATERIAL DISPOSITION INSPECTOR BASIC METABOLIC PANEL Routine 12/26/2023 12:08 AM MATERIAL DISPOSITION INSPECTOR CT UROGRAM W 3D ED Urgent/IP Urgent 12/25/2023 4:23 PM MATERIAL DISPOSITION INSPECTOR FL FLUOROSCOPY < 1 HOUR IP Routine 12/25/2023 8:21 AM MATERIAL DISPOSITION INSPECTOR URETEROSCOPY 12/25/2023 7:28 AM MATERIAL DISPOSITION INSPECTOR Kidney stone PYELOGRAM - RETROGRADE 12/25/2023 7:28 AM MATERIAL DISPOSITION INSPECTOR Kidney stone CYSTOSCOPY 12/25/2023 7:28 AM MATERIAL DISPOSITION INSPECTOR Kidney stone documented in this encounter Results * eGFR (12/27/2023 12:19 AM MATERIAL DISPOSITION INSPECTOR) eGFR >90 >=60 mL/min/1. [address] [facility] Comment: Interpretive Data Reference Interval Normal ?>/= [...] interpretive data was last reviewed 2021. Blood 12/27/2023 12:1 9 AM MATERIAL DISPOSITION INSPECTOR 12/27/2023 12:52 AM MATERIAL DISPOSITION INSPECTOR Temo Mcintosh MD LAB BLOOD ORDERABLES Fin al Result Performing Organization Address [facility] de Phone Number [facility] Department [place] [address] * Phosphorus (12/27/2023 12:19 AM MATERIAL DISPOSITION INSPECTOR) Phosphorus, pl 3.1 2.3 - 4.5 mg/dL [facility] Blood 12/27/2023 12:1 9 AM MATERIAL DISPOSITION INSPECTOR 12/27/2023 12:52 AM MATERIAL DISPOSITION INSPECTOR Temo Mcintosh MD LAB BLOOD ORDERABLES Fin al Result Performing Organization Address [facility] de Phone Number [facility] Department [place] [address] * Magnesium (12/27/2023 12:19 AM MATERIAL DISPOSITION INSPECTOR) Magnesium 2.0 1.4 - 2.5 mg/dL [facility] Blood 12/27/2023 12:1 9 AM MATERIAL DISPOSITION INSPECTOR 12/27/2023 12:52 AM MATERIAL DISPOSITION INSPECTOR Temo Mcintosh MD LAB BLOOD ORDERABLES Fin al Result Performing Organization Address [facility] de Phone Number [facility] Department [place] [address] * (ABNORMAL) Basic metabolic panel (12/27/2023 12:19 AM MATERIAL DISPOSITION INSPECTOR) [facility] Sodium 140 135 - 145 mmol/L [facility] Potassium, pl 3.4 3.3 - 4.9 mmol/L [facility] Chloride 102 97 - 110 mmol/L [facility] CO2 29 22 - 32 mmol/L [facility] Anion gap 9 2 - 15 mmol/L [facility] BUN 12 6 - 25 mg/dL [facility] Creatinine 0.78(L) 0.80 - 1.30 mg/dL [facility] Glucose 123 70 - 199 mg/dL [facility] Comment: Interpretive Data Fasting glucose [...] interpretive data was last revised 2022. Calcium 8.6 8.5 - 10.3 mg/dL [facility] Blood 12/27/2023 12:1 9 AM MATERIAL DISPOSITION INSPECTOR 12/27/2023 12:52 AM MATERIAL DISPOSITION INSPECTOR us Temo Mcintosh MD LAB BLOOD ORDERABLES Fin al Result [facility] Department [place] [address] * (ABNORMAL) CBC without differential (12/27/2023 12:19 AM MATERIAL DISPOSITION INSPECTOR) [facility] WBC 7.4 3.8 - 9.9 K/cumm [facility] Hgb 10.1(L) 13.0 - 17.5 g/dL [facility] Hct 30.8(L) 38.9 - 50.3 % [facility] Plt 158 150 - 400 K/cumm [facility] MPV 11.5 9.1 - 12.3 fL [facility] RBC 3.34(L) 4.30 - 5.80 M/cumm [facility] MCV 92.2 81.3 - 96.4 fL [facility] MCH 30.2 27.1 - 33.3 pg [facility] MCHC 32.8 32.3 - 35.7 g/dL [facility] RDW CV 14.2 11.1 - 14.9 % [facility] RDW SD 48.2(H) 35.7 - 48.1 fL [facility] NRBC abs 0.00 0.00 - 0.01 K/cumm [facility] Blood 12/27/2023 12:1 9 AM MATERIAL DISPOSITION INSPECTOR 12/27/2023 12:52 AM MATERIAL DISPOSITION INSPECTOR Tmeo Mcintosh MD LAB BLOOD ORDERABLES Fin al Result Performing Organization Address City/State/[facility] Co de Phone Number [facility] [place] [address] * IR Percutaneous Nephrostomy Left (12/26/2023 1:00 PM MATERIAL DISPOSITION INSPECTOR) Anatomical Region Laterality Modality Body Left Ultrasound 12/26/2023 3:27 PM MATERIAL DISPOSITION INSPECTOR Impressions 12/26/2023 4:49 PM MATERIAL DISPOSITION INSPECTOR Successful left 10-Wallisian percutaneous nephrostomy tube placement. PLAN: ?? Patient needs to have followup after 6-8 weeks for catheter exchange or internalization or possible removal if no definitive surgical plan is made in the interim. Dictated by: Dennis Albarado MD The radiology attending physician has personally reviewed this study, and had reviewed and/or edited this written report and agrees with it. Electronically signed by: Cici Romero MD Narrative 12/26/2023 4:49 PM MATERIAL DISPOSITION INSPECTOR EXAMINATION : LEFT PERCUTANEOUS NEPHROSTOMY CATHETER PLACEMENT HISTORY/INDICATION: ??73-year-old male with history of left ureteral stone disease initially managed with ureteral stent placed by urology, presented recently for ureteral stent evaluation and stone removal. 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 ??IR was consulted for percutaneous nephrostomy tube placement. ATTENDING PRESENCE: Cici Romero MD, the attending radiologist was present from the beginning to the end of the procedure. ?? SEDATION: Procedural sedation was administered under the attending physician's direction and continuous monitoring by a trained nurse specialist who was independent from those actually performing the procedure. ??Total monitored sedation time was 60 minutes. TECHNIQUE/FINDINGS: The risks, benefits and alternatives were discussed and informed consent was obtained. Prior to beginning the procedure, [place] Protocol was performed to confirm the patient's identity and the planned procedure. ??The fluoroscopy time has been recorded in the electronic medical record. Maximum sterile barriers including cap, mask, hand hygiene, sterile gloves, sterile gown, large sterile drape and 2% chlorhexidine for cutaneous antisepsis were used. Initial ultrasound imaging was done to localize the kidney and to assess the collecting system as well to identify a possible calyx for initial access. ??The overlying skin was then prepped and draped in the usual sterile manner and 1% Lidocaine was used to achieve local anesthesia. ?? A 21-gauge long micropuncture was then used to access the left renal collecting system under real-time ultrasound guidance with appropriate needle tip positioning documented by the aspiration of urine and by fluoroscopy following the injection of contrast. ??Access to the lower pole calyx could not be obtained due to overlying artifact, accordingly upper pole calyx was targeted. ??Limited contrast injection demonstrated moderate hydronephrosis and severe hydroureter with severe stricturing of the mid ureter. ?? A guidewire was passed into the collecting system and the tract was dilated before placing a 10-Wallisian cope catheter. ??The retaining loop was formed and the catheter was secured to the skin with a single stitch of 0-Prolene. The catheter was then connected to gravity drainage. Final fluoroscopic spot images demonstrated left catheter well positioned within the renal pelvis. ESTIMATED BLOOD LOSS: Minimal. CONDITION: Stable DISCHARGED TO: patient care division. FINDINGS: ?? Contrast injection into the left collecting system demonstrates moderate hydronephrosis with severe midureteral stricture, there is an abrupt caliber change with minimal contrast passing beyond this point. ??Contrast injection confirms appropriate positioning of the nephrostomy catheter within the left collecting system. ??Pullback tractogram confirms catheter course does not violate the pleura or bowel. Procedure Note Cici Garces MD - 12/26/2023 EXAMINATION : LEFT PERCUTANEOUS NEPHROSTOMY CATHETER PLACEMENT HISTORY/INDICATION: 73-year-old male with history of left ureteral stone disease initially managed with ureteral stent placed by urology, presented recently for ureteral stent evaluation and stone removal. 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 IR was consulted for percutaneous nephrostomy tube placement. ATTENDING PRESENCE: Cici Romero MD, the attending radiologist was present from the beginning to the end of the procedure. SEDATION: Procedural sedation was administered under the attending physician's direction and continuous monitoring by a trained nurse specialist who was independent from those actually performing the procedure. Total monitored sedation time was 60 minutes. TECHNIQUE/FINDINGS: The risks, benefits and alternatives were discussed and informed consent was obtained. Prior to beginning the procedure, [place] Protocol was performed to confirm the patient's identity and the planned procedure. The fluoroscopy time has been recorded in the electronic medical record. Maximum sterile barriers including cap, mask, hand hygiene, sterile gloves, sterile gown, large sterile drape and 2% chlorhexidine for cutaneous antisepsis were used. Initial ultrasound imaging was done to localize the kidney and to assess the collecting system as well to identify a possible calyx for initial access. The overlying skin was then prepped and draped in the usual sterile manner and 1% Lidocaine was used to achieve local anesthesia. A 21-gauge long micropuncture was then used to access the left renal collecting system under real-time ultrasound guidance with appropriate needle tip positioning documented by the aspiration of urine and by fluoroscopy following the injection of contrast. Access to the lower pole calyx could not be obtained due to overlying artifact, accordingly upper pole calyx was targeted. Limited contrast injection demonstrated moderate hydronephrosis and severe hydroureter with severe stricturing of the mid ureter. A guidewire was passed into the collecting system and the tract was dilated before placing a 10-Wallisian cope catheter. The retaining loop was formed and the catheter was secured to the skin with a single stitch of 0-Prolene. The catheter was then connected to gravity drainage. Final fluoroscopic spot images demonstrated left catheter well positioned within the renal pelvis. ESTIMATED BLOOD LOSS: Minimal. CONDITION: Stable DISCHARGED TO: patient care division. FINDINGS: Contrast injection into the left collecting system demonstrates moderate hydronephrosis with severe midureteral stricture, there is an abrupt caliber change with minimal contrast passing beyond this point. Contrast injection confirms appropriate positioning of the nephrostomy catheter within the left collecting system. Pullback tractogram confirms catheter course does not violate the pleura or bowel. IMPRESSION: Successful left 10-Wallisian percutaneous nephrostomy tube placement. PLAN: Patient needs to have followup after 6-8 weeks for catheter exchange or internalization or possible removal if no definitive surgical plan is made in the interim. Dictated by: Dennis Albarado MD The radiology attending physician has personally reviewed this study, and had reviewed and/or edited this written report and agrees with it. Electronically signed by: Cici Romero MD Temo Mcintosh MD IMG IR PROCEDURES Final Result * eGFR (12/26/2023 12:08 AM MATERIAL DISPOSITION INSPECTOR) eGFR >90 >=60 mL/min/1. [address] [facility] Comment: Interpretive Data Reference Interval Normal ?>/= [...] interpretive data was last reviewed 2021. Blood 12/26/2023 12:0 8 AM MATERIAL DISPOSITION INSPECTOR 12/26/2023 12:53 AM MATERIAL DISPOSITION INSPECTOR Temo Mcintosh MD LAB BLOOD ORDERABLES Fin al Result [facility] Department [place] [address] * (ABNORMAL) CBC without differential (12/26/2023 12:08 AM MATERIAL DISPOSITION INSPECTOR) Pathologist [facility] WBC 9.4 3.8 - 9.9 K/cumm [facility] Hgb 10.5(L) 13.0 - 17.5 g/dL [facility] Hct 32.4(L) 38.9 - 50.3 % [facility] Plt 189 150 - 400 K/cumm [facility] MPV 11.5 9.1 - 12.3 fL [facility] RBC 3.50(L) 4.30 - 5.80 M/cumm [facility] MCV 92.6 81.3 - 96.4 fL [facility] MCH 30.0 27.1 - 33.3 pg [facility] MCHC 32.4 32.3 - 35.7 g/dL [facility] RDW CV 14.1 11.1 - 14.9 % [facility] RDW SD 48.1 35.7 - 48.1 fL [facility] NRBC abs 0.00 0.00 - 0.01 K/cumm [facility] Blood 12/26/2023 12:0 8 AM MATERIAL DISPOSITION INSPECTOR 12/26/2023 12:54 AM MATERIAL DISPOSITION INSPECTOR Temo Mcintosh MD LAB BLOOD ORDERABLES Fin al Result Performing Organization Address City/[facility]/ZIP Co de Phone Number [facility] Department [place] [address] * Phosphorus (12/26/2023 12:08 AM MATERIAL DISPOSITION INSPECTOR) Pathologist [facility] Phosphorus, pl 3.2 2.3 - 4.5 mg/dL [facility] Blood 12/26/2023 12:0 8 AM MATERIAL DISPOSITION INSPECTOR 12/26/2023 12:53 AM MATERIAL DISPOSITION INSPECTOR Temo Mcintosh MD LAB BLOOD ORDERABLES Fin al Result Performing Organization Address [facility] [place] [address] * Magnesium (12/26/2023 12:08 AM MATERIAL DISPOSITION INSPECTOR) [facility] Magnesium 2.0 1.4 - 2.5 mg/dL [facility] Blood 12/26/2023 12:0 8 AM MATERIAL DISPOSITION INSPECTOR 12/26/2023 12:53 AM MATERIAL DISPOSITION INSPECTOR Temo Mcintosh MD LAB BLOOD ORDERABLES Fin al Result Performing Organization Address [facility] [place] [address] * Basic metabolic panel (12/26/2023 12:08 AM MATERIAL DISPOSITION INSPECTOR) [facility] Sodium 142 135 - 145 mmol/L [facility] Potassium, pl 3.4 3.3 - 4.9 mmol/L [facility] Chloride 104 97 - 110 mmol/L [facility] CO2 27 22 - 32 mmol/L [facility] Anion gap 11 2 - 15 mmol/L [facility] BUN 13 6 - 25 mg/dL [facility] Creatinine 0.80 0.80 - 1.30 mg/dL [facility] Glucose 122 70 - 199 mg/dL [facility] Comment: Interpretive Data Fasting glucose [...] interpretive data was last revised 2022. Calcium 9.0 8.5 - 10.3 mg/dL [facility] Blood 12/26/2023 12:0 8 AM MATERIAL DISPOSITION INSPECTOR 12/26/2023 12:53 AM MATERIAL DISPOSITION INSPECTOR Temo Mcintosh MD LAB BLOOD ORDERABLES Fin al Result Performing Organization Address [facility] de Phone Number [facility] [place] [address] * Protime-INR (12/26/2023 12:08 AM MATERIAL DISPOSITION INSPECTOR) PT 12.2 10.3 - 13.7 sec [facility] INR 1.07 0.90 - 1.20 [facility] Comment: Interpretive data Oral anticoagulant therapeutic ranges: Venous thromboembolism prophylaxis or treatment: 2.0-3.0 CARDIOLOGY Standard range: 2.0-3.0 High-intensity range: 2.5-3.5 Refer to indication-specific guidelines for appropriate target ranges for prosthetic heart valve replacement. Current interpretive data was last revised on 2019. Blood 12/26/2023 12:0 8 AM MATERIAL DISPOSITION INSPECTOR 12/26/2023 12:55 AM MATERIAL DISPOSITION INSPECTOR Temo Mcintosh MD LAB BLOOD ORDERABLES Fin al Result Performing Organization Address [facility] de Phone Number [facility] [place] [address] * aPTT (12/26/2023 12:08 AM MATERIAL DISPOSITION INSPECTOR) aPTT 29 28 - 38 sec [facility] Comment: Interpretive Data Heparin therapeutic range: 66.0 - 100.0 seconds. Range based on correlation with therapeutic heparin activity range of 0.3 - 0.7 Units/mL. Current interpretive data was last revised on 2023. Blood 12/26/2023 12:0 8 AM MATERIAL DISPOSITION INSPECTOR 12/26/2023 12:55 AM MATERIAL DISPOSITION INSPECTOR us Temo Mcintosh MD LAB BLOOD ORDERABLES Fin al Result Performing Organization Address City/State/[facility] Co de Phone Number [facility] Department [place] [address] * CT Urogram W 3D (12/25/2023 4:23 PM MATERIAL DISPOSITION INSPECTOR) Anatomical Region Laterality Modality Body Computed Tomogra phy 12/25/2023 5:08 PM MATERIAL DISPOSITION INSPECTOR Addenda Addendum by Elsy Fields MD on 12/26/2023 8:29 AM MATERIAL DISPOSITION INSPECTOR When comparing to the retrograde pyelogram 10/18/2023, the area of stricture and tortuosity in the mid left ureter is unchanged in appearance compared to CT urographic findings on this examination. The area of stricture is best seen on coronal images, series 11 image 48 through 51. Dictated by: Tamanna Puente M.D. The radiology attending physician has personally reviewed this study, and had reviewed and/or edited this written report and agrees with it. Electronically signed by: Elsy Fields M.D. Impressions 12/26/2023 6:58 AM MATERIAL DISPOSITION INSPECTOR 1. ??Interval removal of left-sided ureteral stent. ??No significant change in left hydroureteronephrosis with point of transition in the mid to distal ureter, likely corresponding to the area of stricture described on operative report from earlier today. ??There is a small nonobstructing left lower pole renal stone as well as layering stone material within the dilated left renal pelvis. ??Postprocedural changes noted with gas within the bladder, left renal collecting system and left ureter. 2. 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 3. ??Continued decrease in size of left renal subcapsular collection. 4. ??Diffuse body wall edema. 5. ??Small nonobstructing right renal stones. Dictated by: Tamanna Puente M.D. The radiology attending physician has personally reviewed this study, and had reviewed and/or edited this written report and agrees with it. Electronically signed by: Elsy Fields M.D. Narrative 12/26/2023 6:58 AM MATERIAL DISPOSITION INSPECTOR EXAMINATION: 1. CT UROGRAPHY WITH AND WITHOUT CONTRAST 2. 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 Post-processed 3D images were generated on a dedicated workstation and also reviewed. COMPARISON: 11/30/2023 FINDINGS: UROGRAPHIC FINDINGS: Right Kidney: The right kidney is normal size. There is a small hypoattenuating lesion in the mid right kidney which is too small to characterize, likely a cyst, unchanged. ??There are no suspicious focal lesions. There are 2 small nonobstructing right renal calculi measuring up to 2 mm. There is no hydronephrosis. The ureter is normal. The urothelium appears normal. Left Kidney: The left kidney is normal size. Small subcapsular fluid collection has decreased in size compared to the prior CT. ??There is a hypodense lesion in the upper left kidney which is too small to characterize, likely a cyst, unchanged. ??There is been interval removal of the left ureteral stent. ??There is unchanged left extrarenal pelvis and mild left hydroureteronephrosis down to the level of the mid to distal ureter (series 2 image 162). ??There is gas within the left renal collecting system and within the left ureter, likely from recent procedure. ??There is a punctate stone within the lower left kidney. ??There is layering stone material within the dilated left renal pelvis. ??There is mild asymmetric left perirenal fat stranding. The urothelium appears normal. Bladder: There is mild bladder wall thickening. ??A Shook catheter is present within the urinary bladder. ??There is a small amount of gas within the urinary bladder. No masses are seen. NON-UROGRAPHIC FINDINGS: The imaged lung bases are clear. ??Heart size is within normal limits. ??Coronary artery calcifications. ??Numerous hepatic cysts. ??No biliary ductal dilation. ??Spleen, adrenal glands, and pancreas are normal. ??Gallbladder is normal. ??There is presacral fat stranding. ??Postoperative changes of prostatectomy. ??Diffuse body wall edema. ??No ascites. ??No free air. There is a hyperdense clot within the infrarenal inferior vena cava extending to both common iliac veins. ??An infrarenal inferior vena cava filter is in place. ??No abdominal or pelvic lymphadenopathy. ??No bowel obstruction. ??L4-L5 instrumented spinal fixation. ??Chronic left-sided rib fractures. Procedure Note Elsy Fields MD - 12/26/2023 EXAMINATION: 1. CT UROGRAPHY WITH AND WITHOUT CONTRAST 2. 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 Post-processed 3D images were generated on a dedicated workstation and also reviewed. COMPARISON: 11/30/2023 FINDINGS: UROGRAPHIC FINDINGS: Right Kidney: The right kidney is normal size. There is a small hypoattenuating lesion in the mid right kidney which is too small to characterize, likely a cyst, unchanged. There are no suspicious focal lesions. There are 2 small nonobstructing right renal calculi measuring up to 2 mm. There is no hydronephrosis. The ureter is normal. The urothelium appears normal. Left Kidney: The left kidney is normal size. Small subcapsular fluid collection has decreased in size compared to the prior CT. There is a hypodense lesion in the upper left kidney which is too small to characterize, likely a cyst, unchanged. There is been interval removal of the left ureteral stent. There is unchanged left extrarenal pelvis and mild left hydroureteronephrosis down to the level of the mid to distal ureter (series 2 image 162). There is gas within the left renal collecting system and within the left ureter, likely from recent procedure. There is a punctate stone within the lower left kidney. There is layering stone material within the dilated left renal pelvis. There is mild asymmetric left perirenal fat stranding. The urothelium appears normal. Bladder: There is mild bladder wall thickening. A Shook catheter is present within the urinary bladder. There is a small amount of gas within the urinary bladder. No masses are seen. NON-UROGRAPHIC FINDINGS: The imaged lung bases are clear. Heart size is within normal limits. Coronary artery calcifications. Numerous hepatic cysts. No biliary ductal dilation. Spleen, adrenal glands, and pancreas are normal. Gallbladder is normal. There is presacral fat stranding. Postoperative changes of prostatectomy. Diffuse body wall edema. No ascites. No free air. There is a hyperdense clot within the infrarenal inferior vena cava extending to both common iliac veins. An infrarenal inferior vena cava filter is in place. No abdominal or pelvic lymphadenopathy. No bowel obstruction. L4-L5 instrumented spinal fixation. Chronic left-sided rib fractures. IMPRESSION: 1. Interval removal of left-sided ureteral stent. No significant change in left hydroureteronephrosis with point of transition in the mid to distal ureter, likely corresponding to the area of stricture described on operative report from earlier today. There is a small nonobstructing left lower pole renal stone as well as layering stone material within the dilated left renal pelvis. Postprocedural changes noted with gas within the bladder, left renal collecting system and left ureter. 2. 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 3. Continued decrease in size of left renal subcapsular collection. 4. Diffuse body wall edema. 5. Small nonobstructing right renal stones. Dictated by: Tamanna Puente M.D. The radiology attending physician has personally reviewed this study, and had reviewed and/or edited this written report and agrees with it. Electronically signed by: Elsy Fields M.D. Temo Mcintosh MD IMG CT PROCEDURES Edited Result - Final * [place] Fluoroscopy < 1 Hour (12/25/2023 8:21 AM MATERIAL DISPOSITION INSPECTOR) Narrative [facility] - 12/25/2023 8:21 AM MATERIAL DISPOSITION INSPECTOR The images from this study are not interpreted by Radiology. ??Please refer to the physician's procedure / OR operative note. us Temo Mcintosh MD IMG FLUOROSCOPY PROCEDUR ES Final Result [facility] documented in this encounter Visit Diagnoses Diagnosis Kidney stone- Primary Calculus of kidney Nephrolithiasis Calculus of kidney Nephrolithiasis Calculus of kidney documented in this encounter Admitting Diagnoses Diagnosis Kidney stone Calculus of kidney Nephrolithiasis Calculus of kidney documented in this encounter Administered Medications Inactive Administered Medications - up to 3 most recent administrations Medication Order MAR Action Action Date Dose Rate Site acetaminophen (TYLENOL) tablet 1,000 mg 1,000 mg, oral, Once, On Sun12/25/23 at 0700, For 1 dose, Pre-Op, Indications: Pre-Emptive AnalgesiaIndications:Pre-Emptiv e Analgesia Given 12/25/2023 7:01 AM MATERIAL DISPOSITION INSPECTOR 1,000 mg acetaminophen (TYLENOL) tablet 1,000 mg 1,000 mg, oral, Every 6 hours scheduled, First dose (after last modification) on Sun12/26/23 at 1445 Given 12/27/2023 12:44 PM MATERIAL DISPOSITION INSPECTOR 1,000 mg Given 12/26/2023 2:40 PM MATERIAL DISPOSITION INSPECTOR 1,000 mg acyclovir (ZOVIRAX) tablet 400 mg 400 mg, oral, 2 times daily, First dose on Sun12/25/23 at 1045, Indications: Chronic SuppressionIndications:Chronic Suppression Given 12/27/2023 8:13 AM MATERIAL DISPOSITION INSPECTOR 4 00 mg Given 12/26/2023 8:40 PM MATERIAL DISPOSITION INSPECTOR 400 mg Given 12/26/2023 10:27 AM MATERIAL DISPOSITION INSPECTOR 400 mg calcium carbonate (TUMS) chewable tablet 1,000 mg 1,000 mg (400 mg of elemental calcium), oral, 3 times daily PRN, indigestion, heartburn, Starting on Sun12/25/23 at 1218 Carrier Fluids for Secondary Infusion - 0.9% Sodium Chloride 30 mL, intravenous, As needed, For priming tubing and/or flushing, Starting on Sun12/26/23 at 1111, Pre-Procedure (IR), 0-250 ml/hr to flush line after IV infusions when no maintenance IV ordered. Infuse 30mL at the same rate as the secondary infusion. Run as primary IV, not intended for KVO. dilTIAZem XR (CARDIZEM CD,DILACOR XR) 24 hour capsule 240 mg 240 mg, oral, 2 times daily, First dose on Sun12/25/23 at 1045, Do not crush, chew, cut, dissolve, open or otherwise manipulate tablet/capsule., Indications: hypertensionIndications:hypertension Given 12/26/2023 8:39 PM MATERIAL DISPOSITION INSPECTOR 240 mg Given 12/25/2023 11:41 AM MATERIAL DISPOSITION INSPECTOR 240 mg famotidine (PEPCID) injection 20 mg 20 mg, intravenous, Administer over 2 Minutes, Once, On Sun12/25/23 at 0700, For 1 dose, Pre-Op, Indications: RefluxIndications:Reflux Given 12/25/2023 7:01 AM MATERIAL DISPOSITION INSPECTOR 20 mg fentaNYL (SUBLIMAZE) preservative free injection intravenous, As needed, Starting on Sun12/26/23 at 1147, Intra-Op Given 12/26/2023 12:37 PM MATERIAL DISPOSITION INSPECTOR 25 mcg Given 12/26/2023 12:13 PM MATERIAL DISPOSITION INSPECTOR 25 mcg Given 12/26/2023 11:56 AM MATERIAL DISPOSITION INSPECTOR 25 mcg furosemide (LASIX) tablet 40 mg 40 mg, oral, 2 times daily (for diuretics), First dose (after last modification) on Sun12/25/23 at 1115, Indications: EdemaIndications:Edema Given 12/27/2023 8:13 AM MATERIAL DISPOSITION INSPECTOR 40 mg Given 12/26/2023 2:40 PM MATERIAL DISPOSITION INSPECTOR 40 mg Given 12/26/2023 10:27 AM MATERIAL DISPOSITION INSPECTOR 40 mg gabapentin (NEURONTIN) capsule 600 mg 600 mg, oral, 3 times daily, First dose on Sun12/25/23 at 1045, Indications: PainIndications:Pain Given 12/26/2023 8:39 PM MATERIAL DISPOSITION INSPECTOR 600 mg Given 12/26/2023 10:28 AM MATERIAL DISPOSITION INSPECTOR 600 mg Given 12/25/2023 9:35 PM MATERIAL DISPOSITION INSPECTOR 600 mg ioversoL (OPTIRAY 350) injection 100 mL 100 mL, intravenous, Once in imaging, contrast, Starting on Sun12/25/23 at 1403, For 1 dose Contrast Given 12/25/2023 2:04 PM MATERIAL DISPOSITION INSPECTOR 100 mL ioversoL (OPTIRAY 350) injection 50 mL 50 mL, intravenous, Once in imaging, contrast, Starting on Sun12/25/23 at 1403, For 1 dose Contrast Given 12/25/2023 2:04 PM MATERIAL DISPOSITION INSPECTOR 25 mL ioversoL (OPTIRAY 350) injection As needed, Starting on Sun12/26/23 at 1252, Intra-Op Given 12/26/2023 12:52 PM MATERIAL DISPOSITION INSPECTOR 37 mL Lactated Ringer's (LR) infusion 30 mL/hr, intravenous, Continuous, Starting on Sun12/25/23 at 0700, Pre-Op Rate/Dose Verify 12/25/2023 7:23 AM MATERIAL DISPOSITION INSPECTOR 30 mL/hr New Bag 12/25/2023 7:07 AM MATERIAL DISPOSITION INSPECTOR 30 mL/hr 30 mL/hr Lactated Ringer's (LR) infusion 75 mL/hr, intravenous, Continuous, Starting on Sun12/25/23 at 0930, Phase I & Post-op Floor Rate/Dose Verify 12/27/2023 11:25 AM MATERIAL DISPOSITION INSPECTOR 75 mL/hr 75 mL/hr New Bag 12/27/2023 4:51 AM MATERIAL DISPOSITION INSPECTOR 75 mL/hr 75 mL/hr Rate/Dose Verify 12/26/2023 7:27 PM MATERIAL DISPOSITION INSPECTOR 75 mL/hr 75 mL/h r levETIRAcetam (KEPPRA) tablet 1,000 mg 1,000 mg, oral, 2 times daily, First dose on Sun12/25/23 at 1045, May mix with 120 mL of enteral nutrition formula or disperse crushed tablets (500 mg tablet strength studied) in 10 mL of water, shake for 5 minutes to dissolve, and administer immediately via enteral feeding tube., Indications: seizuresIndications:seizures Given 12/27/2023 8:13 AM MATERIAL DISPOSITION INSPECTOR 1,000 mg Given 12/26/2023 8:39 PM MATERIAL DISPOSITION INSPECTOR 1,000 mg Given 12/26/2023 10:28 AM MATERIAL DISPOSITION INSPECTOR 1,000 mg lidocaine PF (XYLOCAINE) 10 mg/mL (1 %) preservative free injection As needed, Starting on Sun12/26/23 at 1154, Intra-Procedure (IR), Indications: Administration of Local AnesthesiaIndications:Administration of Local Anesthesia Given 12/26/2023 11:54 AM MATERIAL DISPOSITION INSPECTOR 8 mL Back midazolam (VERSED) 1 mg/mL injection As needed, Starting on Sun12/26/23 at 1147, Intra-Op Given 12/26/2023 12:37 PM MATERIAL DISPOSITION INSPECTOR 0.5 mg Given 12/26/2023 12:13 PM MATERIAL DISPOSITION INSPECTOR 0.5 mg Given 12/26/2023 11:56 AM MATERIAL DISPOSITION INSPECTOR 0.[address] (PROTONIX) extended release tablet 40 mg 40 mg, oral, Every morning, First dose on Sun12/25/23 at 1045, Do not crush, chew, cut, dissolve, open or otherwise manipulate tablet/capsule., Indications: Treatment of Non-Bleeding Gastric Disorder, acid refluxIndications:Treatment of Non-Bleeding Gastric Disorder,acid reflux Given 12/27/2023 8:13 AM MATERIAL DISPOSITION INSPECTOR 40 mg Given 12/26/2023 10:27 AM MATERIAL DISPOSITION INSPECTOR 40 mg Given 12/25/2023 11:42 AM MATERIAL DISPOSITION INSPECTOR 40 mg potassium chloride ER (KLOR-CON) extended release tablet 30 mEq 30 mEq, oral, Every 4 hours, First dose on Sun12/26/23 at 0530, For 2 doses, Total dose = 60 mEq Tablets should not be crushed, chewed, dissolved, or otherwise manipulated. Capsules may be opened and sprinkled on a spoonful of applesauce or pudding, but the contents of the capsule should not be crushed or chewed. Given 12/26/2023 10:27 AM MATERIAL DISPOSITION INSPECTOR 30 mEq Given 12/26/2023 5:38 AM MATERIAL DISPOSITION INSPECTOR 30 mEq ramelteon (ROZEREM) tablet 8 mg 8 mg, oral, Nightly, First dose on Sun12/25/23 at 2100, Indications: Sleep-Onset InsomniaIndications:Sleep-Onset Insomnia Given 12/26/2023 8:39 PM MATERIAL DISPOSITION INSPECTOR 8 m g Given 12/25/2023 9:34 PM MATERIAL DISPOSITION INSPECTOR 8 mg ramelteon (ROZEREM) tablet 8 mg 8 mg, oral, Nightly PRN, sleep, Starting on Sun12/25/23 at 1218, Indications: Sleep-Onset InsomniaIndications:Sleep-Onset Insomnia senna-docusate (PERICOLACE) 8.6-50 mg per tablet 1 tablet 1 tablet, oral, Nightly, First dose on Sun12/25/23 at 2100, Indications: constipationIndications:constipation Given 12/26/2023 8:39 PM MATERIAL DISPOSITION INSPECTOR 1 table t Given 12/25/2023 9:35 PM MATERIAL DISPOSITION INSPECTOR 1 tablet simethicone (MYLICON) chewable tablet 80 mg 80 mg, oral, 2 times daily PRN, flatulence, other, gas pain, Starting on Sun12/25/23 at 1218 sodium chloride 0.9% flush 0.5-20 mL 0.5-20 mL, intra-catheter, Every 8 hours scheduled, First dose on Sun12/25/23 at 1400, Flush volume based on line type and size. Given 12/25/2023 12:45 PM MATERIAL DISPOSITION INSPECTOR 1 0 mL sodium chloride 0.9% flush 0.5-20 mL 0.5-20 mL, intra-catheter, Every 8 hours scheduled, First dose on Sun12/26/23 at 1400, Pre-Procedure (IR), Flush volume based on line type and size. Given 12/27/2023 6:00 AM MATERIAL DISPOSITION INSPECTOR 10 mL Given 12/26/2023 8:40 PM MATERIAL DISPOSITION INSPECTOR 10 mL sodium chloride 0.9% flush 0.5-20 mL 0.5-20 mL, intra-catheter, As needed, line care, Starting on Sun12/26/23 at 1111, Pre-Procedure (IR), Flush volume based on line type and size. Flush before and after each use. documented in this encounter Discontinued Medications Medication Sig Discontinue Reason Start Date End Da te cephalexin (KEFLEX) 500 mg capsule Take 1 capsule (500 mg total) by mouth daily as needed (30 minutes prior to dental appt) When pt has procedures gets pre antibiotic r/t history knee replacements 10/09/2022 12/12/2023 acetaminophen 500 mg capsule Take 2 capsules (1,000 mg total) by mouth every 6 (six) hours as needed for pain Stop Taking at Discharge 12/10/2023 12/27/2023 documented as of this encounter Historical Medications * This list may reflect changes made after this encounter. ascorbic acid (VITAMIN C ORAL)Indications: supplement Take 1 tablet by mouth 2 (two) times a day ramelteon (ROZEREM) 8 mg tabletIndications :Sleep-Onset Insomnia Take 1 tablet (8 mg total) by mouth nightly 02/14/2024 added in this encounter Active and Recently Administered Medications Times are shown in MATERIAL DISPOSITION INSPECTOR. Scheduled Medication Order 12/25/2023 12/26/2023 12/27/2023 acetaminophen (TYLENOL) tablet 1,000 mg (COMPLETED) 1,000 mg, oral, Once, On Sun12/25/23 at 0700, For 1 dose, Pre-Op, Indications: Pre-Emptive Analgesia 0701 (Given - Provider: Alla Asher, NARENDRA) acetaminophen (TYLENOL) tablet 1,000 mg 1,000 mg, oral, Every 6 hours scheduled, First dose (after last modification) on Sun12/26/23 at 1445 1440 (Given - Provider: Kishan Hanson RN)1758 (Not Given - Provider: Kishan Hanson RN - Reason: Patient/family refused) 0005 (Not Given - Provider: Bharti Viramontes RN - Reason: Patient/family refused)0609 (Not Given - Provider: Bharti Viramontes RN - Reason: Patient/family refused)1244 (Given - Provider: Kishan Hanson RN) acyclovir (ZOVIRAX) tablet 400 mg 400 mg, oral, 2 times daily, First dose on Sun12/25/23 at 1045, Indications: Chronic Suppression 1141 (Given - Provider: Katharine Montgomery RN)2135 (Given - Provider: Bharti Viramontes RN) 1027 (Given - Provider: Kishan Hanson RN)2040 (Given - Provider: Bharti Viramontes RN) 0813 (Given - Provider: Kishan Hanson RN) bisacodyL (DULCOLAX) suppository 10 mg 10 mg, rectal, Nightly, First dose on Sun12/25/23 at 2100, Indications: constipation 2140 (Not Given - Provider: Bharti Viramontes RN - Reason: Patient/family refused) 2038 (Not Given - Provider: Bharti Viramontes RN - Reason: Patient/family refused) cefTRIAXone (ROCEPHIN) 2,000 mg/20 mL in sterile water (premix) 2,000 mg (COMPLETED) 2,000 mg, intravenous, at 1,200 mL/hr, Administer over 1 Minutes, Once, On Sun12/25/23 at 0700, For 1 dose, Pre-Op, Administer within 60 minutes of incision., Indications: Prophylaxis, Surgical 0736 (Given - Provider: Ruperto Tomas CRNA) dilTIAZem XR (CARDIZEM CD,DILACOR XR) 24 hour capsule 240 mg 240 mg, oral, 2 times daily, First dose on Sun12/25/23 at 1045, Do not crush, chew, cut, dissolve, open or otherwise manipulate tablet/capsule., Indications: hypertension 1141 (Given - Provider: Katharine Montgomery RN)2133 (Not Given - Provider: Bharti Viramontes RN - Reason: Other - Comment: bp normal resident okay with holding overnight) 1027 (Not Given - Provider: Kishan Hanson RN - Reason: Other - Comment: low BP)203 (Given - Provider: Bharti Viramontes RN) 0813 (Not Given - Provider: Kishan Hanson RN - Reason: Other - Comment: pt is normotensive) enoxaparin (LOVENOX) syringe 80 mg 80 mg, subcutaneous, Every 12 hours scheduled, First dose on Sun12/25/23 at 1045, Indications: Venous Thrombosis, On hold since Sun12/25/2023 at 1005 until manually unheld 1005 (Held by Provider - Provider: Dulce Siegel MD - Reason: Hold for Procedure)1045 (Not Given - Provider: Katharine Montgomery RN - Reason: See Provider Order)2100 (Hold - Provider: Bharti Viramontes RN - Reason: Other - Comment: held by provider) 0900 (Hold - Provider: Kishan Hanson RN - Reason: See Provider Order)2100 (Not Given - Provider: Bharti Viramontes RN - Reason: Other - Comment: held by provider) 0900 (Hold - Provider: Kishan Hanson RN - Reason: See Provider Order)1913 (Unheld by Provider - Provider: Automatic Discharge Provider) famotidine (PEPCID) injection 20 mg (COMPLETED) 20 mg, intravenous, Administer over 2 Minutes, Once, On Sun12/25/23 at 0700, For 1 dose, Pre-Op, Indications: Reflux 0701 (Given - Provider: Alla Asher RN) furosemide (LASIX) tablet 40 mg 40 mg, oral, 2 times daily (for diuretics), First dose (after last modification) on Sun12/25/23 at 1115, Indications: Edema 1142 (Given - Provider: Katharine Montgomery RN)1746 (Given - Provider: Katharine Montgomery RN - Comment: previous dose given late due to med n/a) 102 (Given - Provider: Kishan Hanson RN)1440 (Given - Provider: Kishan Hanson RN) 0813 (Given - Provider: Kishan Hanson RN) gabapentin (NEURONTIN) capsule 600 mg 600 mg, oral, 3 times daily, First dose on Sun12/25/23 at 1045, Indications: Pain 1100 (Not Given - Provider: Katharine Montgomery RN - Reason: Patient/family refused)1407 (Not Given - Provider: Katharine Montgomery RN - Reason: Patient/family refused - Comment: does not want today)213 (Given - Provider: Bharti Viramontes RN) 1028 (Given - Provider: Kishan Hanson RN)1440 (Not Given - Provider: Kishan Hanson RN - Reason: Patient/family refused)2038 (Given - Provider: Bharti Viramontes RN) 0815 (Not Given - Provider: Kishan Hanson RN - Reason: Patient/family refused) levETIRAcetam (KEPPRA) tablet 1,000 mg 1,000 mg, oral, 2 times daily, First dose on Sun12/25/23 at 1045, May mix with 120 mL of enteral nutrition formula or disperse crushed tablets (500 mg tablet strength studied) in 10 mL of water, shake for 5 minutes to dissolve, and administer immediately via enteral feeding tube., Indications: seizures 1245 (Given - Provider: Katharine Montgomery RN)2135 (Given - Provider: Bharti Viramontes RN) 1028 (Given - Provider: Kishan Hanson RN)203 (Given - Provider: Bharti Viramontes RN) 0813 (Given - Provider: Kishan Hanson RN) pantoprazole DR (PROTONIX) extended release tablet 40 mg 40 mg, oral, Every morning, First dose on Sun12/25/23 at 1045, Do not crush, chew, cut, dissolve, open or otherwise manipulate tablet/capsule., Indications: Treatment of Non-Bleeding Gastric Disorder, acid reflux 1142 (Given - Provider: Katharine Montgomery RN) 1027 (Given - Provider: Kishan Hanson RN) 0813 (Given - Provider: Kishan Hanson RN) potassium chloride ER (KLOR-CON) extended release tablet 30 mEq (COMPLETED) 30 mEq, oral, Every 4 hours, First dose on Sun12/26/23 at 0530, For 2 doses, Total dose = 60 mEq Tablets should not be crushed, chewed, dissolved, or otherwise manipulated. Capsules may be opened and sprinkled on a spoonful of applesauce or pudding, but the contents of the capsule should not be crushed or chewed. 0538 (Given - Provider: Bharti Viramontes RN)1027 (Given - Provider: Kishan Hanson RN) ramelteon (ROZEREM) tablet 8 mg 8 mg, oral, Nightly, First dose on Sun12/25/23 at 2100, Indications: Sleep-Onset Insomnia 2133 (Given - Provider: Bharti Viramontes RN) 2038 (Given - Provider: Bharti Viramontes RN) senna-docusate (PERICOLACE) 8.6-50 mg per tablet 1 tablet 1 tablet, oral, Nightly, First dose on Sun12/25/23 at 2100, Indications: constipation 2134 (Given - Provider: Bharti Viramontes RN) 2038 (Given - Provider: Bharti Viramontes RN) sodium chloride 0.9% flush 0.5-20 mL 0.5-20 mL, intra-catheter, Every 8 hours scheduled, First dose on Sun12/25/23 at 1400, Flush volume based on line type and size. 1245 (Given - Provider: Katharine Montgomery RN)214 (Not Given - Provider: Bharti Viramontes RN - Reason: IV Infusing) 0539 (Not Given - Provider: Bharti Viramontes RN - Reason: IV Infusing)1326 (Not Given - Provider: Kishan Hanson RN - Reason: IV Infusing)2039 (Not Given - Provider: Bharti Viramontes RN - Reason: IV Infusing) 0600 (Not Given - Provider: Bharti Viramontes RN - Reason: Patient/family refused)1300 (Not Given - Provider: Kishan Hanson RN - Reason: IV Infusing) sodium chloride 0.9% flush 0.5-20 mL 0.5-20 mL, intra-catheter, Every 8 hours scheduled, First dose on Sun12/26/23 at 1400, Pre-Procedure (IR), Flush volume based on line type and size. 1326 (Not Given - Provider: Kishan Hanson RN - Reason: IV Infusing)2039 (Given - Provider: Bharti Viramontes RN) 0600 (Given - Provider: Bharti Viramontes RN)1300 (Not Given - Provider: Kishan Hanson RN - Reason: IV Infusing) Continuous Medication Order 12/25/2023 12/26/2023 12/27/2023 Lactated Ringer's (LR) infusion (CANCELED) 30 mL/hr, intravenous, Continuous, Starting on Sun12/25/23 at 0700, Pre-Op 0707 (New Bag - Provider: Alla Asher RN)0723 (Rate/Dose Verify - Provider: Ruperto Tomas CRNA)0820 (Anesthesia Volume Adjustment - Provider: Ruperto Tomas CRNA)1035 (Not Given - Provider: Katharine Montgomery RN - Reason: See Provider Order)1037 (Stopped - Provider: Katharine Montgomery RN) Lactated Ringer's (LR) infusion 75 mL/hr, intravenous, Continuous, Starting on Sun12/25/23 at 0930, Phase I & Post-op Floor 0905 (New Bag - Provider: Francisco Javier Mcnamara, NARENDRA)1107 (Rate/Dose Verify - Provider: Katharine Montgomery, NARENDRA)2338 (New Bag - Provider: Vita Olivas RN) 0910 (Restarted - Provider: Kishan Hanson RN - Comment: IVF running)1519 (New Bag - Provider: Kishan Hanson RN)1927 (Rate/Dose Verify - Provider: Kishan Hanson RN) 0451 (New Bag - Provider: Bharti Viramontes RN)1125 (Rate/Dose Verify - Provider: Kishan Hanson RN)1913 (Due: Stopped) PRN Medication Order 12/25/2023 12/26/2023 12/27/2023 calcium carbonate (TUMS) chewable tablet 1,000 mg 1,000 mg (400 mg of elemental calcium), oral, 3 times daily PRN, indigestion, heartburn, Starting on Sun12/25/23 at 1218 Carrier Fluids for Secondary Infusion - 0.9% Sodium Chloride 30 mL, intravenous, As needed, For priming tubing and/or flushing, Starting on Sun12/26/23 at 1111, Pre-Procedure (IR), 0-250 ml/hr to flush line after IV infusions when no maintenance IV ordered. Infuse 30mL at the same rate as the secondary infusion. Run as primary IV, not intended for KVO. cyclobenzaprine (FLEXERIL) tablet 5 mg 5 mg, oral, 3 times daily PRN, muscle spasms, Starting on Sun12/25/23 at 1005 fentaNYL (SUBLIMAZE) preservative free injection (COMPLETED) intravenous, As needed, Starting on Sun12/26/23 at 1147, Intra-Op 1147 (Given - Provider: Gabriel Aguilar RN)1156 (Given - Provider: Gabriel Aguilar RN)1213 (Given - Provider: Gabriel Aguilar RN)1237 (Given - Provider: Gabriel Aguilar RN) iothalamate meglumine (CONRAY) 60 % injection (CANCELED) As needed, Starting on Sun12/25/23 at 0740, Intra-Op 0740 (Given - Provider: Dulce Siegel MD) ioversoL (OPTIRAY 350) injection 100 mL (COMPLETED) 100 mL, intravenous, Once in imaging, contrast, Starting on Sun12/25/23 at 1403, For 1 dose 1404 (Contrast Given - Provider: Torey Banks RT) ioversoL (OPTIRAY 350) injection 50 mL (COMPLETED) 50 mL, intravenous, Once in imaging, contrast, Starting on Sun12/25/23 at 1403, For 1 dose 1404 (Contrast Given - Provider: Torey Banks, RT) ioversoL (OPTIRAY 350) injection (COMPLETED) As needed, Starting on Sun12/26/23 at 1252, Intra-Op 1252 (Given - Provider: Dennis Albarado MD) lidocaine PF (XYLOCAINE) 10 mg/mL (1 %) preservative free injection (COMPLETED) As needed, Starting on Sun12/26/23 at 1154, Intra-Procedure (IR), Indications: Administration of Local Anesthesia 1154 (Given - Provider: Dennis Albarado MD - Comment: L lower back/ L flank) midazolam (VERSED) 1 mg/mL injection (COMPLETED) As needed, Starting on Sun12/26/23 at 1147, Intra-Op 1147 (Given - Provider: Gabriel Aguilar RN)1156 (Given - Provider: Gabriel Aguilar RN)1213 (Given - Provider: Gabriel Aguilar RN)1237 (Given - Provider: Gabriel Aguilar RN) ramelteon (ROZEREM) tablet 8 mg 8 mg, oral, Nightly PRN, sleep, Starting on Sun12/25/23 at 1218, Indications: Sleep-Onset Insomnia simethicone (MYLICON) chewable tablet 80 mg 80 mg, oral, 2 times daily PRN, flatulence, other, gas pain, Starting on Sun12/25/23 at 1218 sodium chloride 0.9% flush 0.5-20 mL 0.5-20 mL, intra-catheter, As needed, line care, Starting on Sun12/25/23 at 1005, Flush volume based on line type and size. Flush before and after each use. sodium chloride 0.9% flush 0.5-20 mL 0.5-20 mL, intra-catheter, As needed, line care, Starting on Sun12/26/23 at 1111, Pre-Procedure (IR), Flush volume based on line type and size. Flush before and after each use. sodium chloride 0.9% irrigation (CANCELED) As needed, Starting on Sun12/25/23 at 0757, Intra-Op 0757 (Given - Provider: Dulce Siegel MD) documented in this encounter Orders Medications Ordered That Armando ht Not Have Been Administered Count Last Ordered Date First Ordered Date Carrier Fluids for Secondary Infusion - 0.9% Sodium Chloride 3 12/26/2023 12/25/2023 sodium chloride 0.9% flush 0.5-20 mL 3 12/0712/25/2023 sodium chloride 0.9% infusion 1 12/26/2023 acetaminophen (TYLENOL) tablet 650 mg 1 bisacodyL (DULCOLAX) suppository 10 mg 1 calcium carbonate (TUMS) sherice wable tablet 1,000 mg 1 12/25/2023 cefTRIAXone (ROCEPHIN) 2,000 mg/20 mL in sterile water (premix) 2,000 mg 1 12/25/2023 cyclobenzaprine (FLEXERIL) tablet 5 mg 1 enoxaparin (LOVENOX) syringe 80 mg 1 2023 fentaNYL (SUBLIMAZE) preserv ative free injection 50 mcg 1 12/25/2023 furosemide (LASIX) tablet 40 mg 1 4 HYDROmorphone (DILAUDID) injection 0.4 mg 1 12/25/2023 iothalamate meglumine (CONRA Y) 60 % injection 1 12/25/2023 Lactated Ringer's (LR) infusion 2 4 metoclopramide (REGLAN) 5 mg /mL injection 10 mg 1 12/25/2023 naloxone (NARCAN) 0.4 mg/mL injection 0.04-0.4 mg 1 12/25/2023 ondansetron (ZOFRAN) injection 4 mg 1 12/25 ramelteon (ROZEREM) tablet 8 mg 1 simethicone (MYLICON) chewab le tablet 80 mg 1 12/25/2023 sodium chloride 0.9% irrigation 1 4 Nursing Count Last Ordered Date First Orde red Date SHOOK CATHETER - DISCONTINUE 1 12/27/2023 SKIN PREP 1 12/26/2023 WEIGH PATIENT 1 12/25/2023 Admission Count Last Ordered Date First Orde red Date ADMIT TO INPATIENT 1 12/25/2023 Discharge Count Last Ordered Date First Orde red Date DISCHARGE PATIENT 1 12/27/2023 CORE MEASURES Count Last Ordered Date First Ord ered Date REASON FOR NO VTE PROPHYLAXIS AT ADMISSION 1 12/25/2023 documented in this encounter Care Teams Sign Painter Relationship Specialty Start Date End Date Rl Medina DO [address] [place] [address] PCP - General 08/09/17 05/25/24 documented as of this encounter
--- OUTSIDE RECORDS SUMMARY | 2024-11-05 19:19 | XMS_ITS | Encounter Summary ---
Author Organization [facility] Healthcare Address [address] [place] [address] Care Team Providers Care Marketing Forecaster Name Role Phone Rl Medina DO Primary Care Provider Reason for Referral * Diagnostic Imaging (Routine) - Closed Specialty Diagnoses / Procedures Referred By Contac t Referred To Contact Diagnoses S/P laminectomy with spinal fusion Procedures XR Spine Thoracic 2 Views Marcial Vu Jr., MD [address] [employer] [facility] [address] [place] [id number] Phone: tel: fax: [facility] Radiology [address] [place] [phone] Phone: tel: Referral ID Status Reason Start Date Expiration Date Visits Re quested Visits Authorized [id number] Closed 01/04/2024 02/02/2025 1 1 NG MANAGER * Diagnostic Imaging (Routine) - Closed Specialty Diagnoses / Procedures Referred By Contac t Referred To Contact Diagnoses S/P laminectomy with spinal fusion Procedures XR Spine Lumbar 2 or 3 Views Marcial Vu Jr., MD [address] [facility] [address], [place] [address] Phone: tel: fax: [facility] Radiology [address] [place] [phone] Phone: tel: Referral ID Status Reason Start Date Expiration Date Visits Re quested Visits Authorized [id number] Closed 01/04/2024 02/02/2025 1 1 NG MANAGER Reason for Visit * Diagnostic Imaging (Routine) - Closed Specialty Diagnoses / Procedures Referred By Contac t Referred To Contact Diagnoses S/P laminectomy with spinal fusion Procedures XR Spine Lumbar 2 or 3 Views Marcial Vu Jr., MD [address] [facility] /[address] [place] [address] Phone: tel: fax: [facility] Radiology [address] [place] [address] [address] [facility] [place] [phone] Phone: tel: Referral ID Status Reason Start Date Expiration Date Visits Re quested Visits Authorized [id number] Closed 01/04/2024 02/02/2025 1 1 Encounter Details Date Type Department Care Team (Latest Contact Info) Description 01/07/2024 7:30 AM MINING MANAGER - 01/07/2024 11:59 PM MINING MANAGER Hospital Encounter [facility] Radiology [address] [place] [address] [address] 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[employer] Not on file Not on file [...] 3 (three) times a day 12/10/2023 5 metOLazone (ZAROXOLYN) 5 mg tablet Take 1 tablet (5 mg total) by mouth daily miconazole 2 % powder Apply topically 2 (two) times a day 12/10/2023 Mounjaro 10 mg/0.5 mL pen injector 12/27/2023 multivitamin tabletIndications :wound healing 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 pantoprazole DR (PROTONIX) 40 mg EC tabletIndications :Treatment of Non-Bleeding Gastric Disorder Take 1 tablet (40 mg total) by mouth daily 12/11/2023 5 senna-docusate (PERICOLACE) 8.6-50 mg Take 1 tablet by mouth nightly 12/10/2023 tamsulosin (FLOMAX) 0.4 mg extended release capsule Take 2 capsules (0.8 mg total) by mouth daily with dinner 12/10/2023 arginine-glutamin e-calcium HMB 7-7-1.5 gram powder in packetIndications :wound Take 1 Dose by mouth 2 (two) times a day [employer] 4 DILT-XR 240 mg 24 hr capsuleIndication s:hypertension [...] (8 mg total) by mouth nightly 4 zolpidem (AMBIEN) 5 mg tabletIndications :Sleep-Onset Insomnia Take 1 tablet (5 mg total) by mouth nightly as needed for sleep 4 documented as of this encounter Discharge Disposition Disposition Code Departure Means Destination Discharge to home or self care documented in this encounter Plan of Treatment Not on file documented as of this encounter Procedures Procedure Name Priority Date/Time Associated Diagnosis Comments XR SPINE LUMBAR 2 OR 3 VIEWS Schedule Routine, Read Routine (OP Routine) 01/07/2024 8:23 AM MINING MANAGER S/P laminectomy with spinal fusion XR SPINE THORACIC 2 VIEWS Schedule Routine, Read Routine (OP Routine) 01/07/2024 8:23 AM MINING MANAGER S/P laminectomy with spinal fusion documented in this encounter Results * XR Spine Thoracic 2 Views (01/07/2024 8:23 AM MINING MANAGER) Anatomical Region Laterality Modality Spine N/A Computed Radiogr aphy 01/07/2024 9:23 AM MINING MANAGER Impressions 01/07/2024 5:25 PM MINING MANAGER Intact L4-L5 posterior spinal instrumented fusion with discectomy and interbody disc device placement with posterior decompression. Mild to moderate multilevel degenerative disease of the lumbar and thoracic spine with findings consistent with diffuse idiopathic skeletal hyperostosis. Dictated by: Alfredo Daley MD The radiology attending physician has personally reviewed this study, and had reviewed and/or edited this written report and agrees with it. Electronically signed by: Justin Choi MD Narrative 01/07/2024 5:25 PM MINING MANAGER EXAMINATION: 1. ??XR SPINE THORACIC 2 VIEWS, XR SPINE LUMBAR 2 OR 3 VIEWS HISTORY: s/p laminectomy COMPARISON: Radiographs of the thoracic and lumbar spine from 11/14/2023. FINDINGS: 2 radiographs of the lumbar spine and 3 radiographs of the thoracic spine is provided for evaluation. Thoracic: There is exaggerated thoracic kyphosis. ??Thoracic vertebral bodies normal in height. ??Mild multilevel thoracic degenerative disc disease with anterior bridging osteophytes consistent with diffuse idiopathic skeletal hyperostosis. ??Partially imaged left nephroureteral stent. ??Partially imaged inferior vena cava filter. Lumbar: Intact L4/L5 posterior spinal instrumented fusion with discectomy and interbody disc device placement with posterior decompression. Mild to moderate multilevel degenerative disc disease of the unfused lumbar spine. ??Anterior bridging osteophytes along lumbar spine. Procedure Note Justin Choi MD - 01/07/2024 EXAMINATION: 1. XR SPINE THORACIC 2 VIEWS, XR SPINE LUMBAR 2 OR 3 VIEWS HISTORY: s/p laminectomy COMPARISON: Radiographs of the thoracic and lumbar spine from 11/14/2023. FINDINGS: 2 radiographs of the lumbar spine and 3 radiographs of the thoracic spine is provided for evaluation. Thoracic: There is exaggerated thoracic kyphosis. Thoracic vertebral bodies normal in height. Mild multilevel thoracic degenerative disc disease with anterior bridging osteophytes consistent with diffuse idiopathic skeletal hyperostosis. Partially imaged left nephroureteral stent. Partially imaged inferior vena cava filter. Lumbar: Intact L4/L5 posterior spinal instrumented fusion with discectomy and interbody disc device placement with posterior decompression. Mild to moderate multilevel degenerative disc disease of the unfused lumbar spine. Anterior bridging osteophytes along lumbar spine. IMPRESSION: Intact L4-L5 posterior spinal instrumented fusion with discectomy and interbody disc device placement with posterior decompression. Mild to moderate multilevel degenerative disease of the lumbar and thoracic spine with findings consistent with diffuse idiopathic skeletal hyperostosis. Dictated by: Alfredo Daley MD The radiology attending physician has personally reviewed this study, and had reviewed and/or edited this written report and agrees with it. Electronically signed by: Justin Choi MD Marcial Vu Jr., MD IMG XR PROCEDURES F inal Result * XR Spine Lumbar 2 or 3 Views (01/07/2024 8:23 AM MINING MANAGER) Anatomical Region Laterality Modality Spine N/A Computed Radiogr aphy 01/07/2024 9:23 AM MINING MANAGER Impressions 01/07/2024 5:25 PM MINING MANAGER Intact L4-L5 posterior spinal instrumented fusion with discectomy and interbody disc device placement with posterior decompression. Mild to moderate multilevel degenerative disease of the lumbar and thoracic spine with findings consistent with diffuse idiopathic skeletal hyperostosis. Dictated by: Alfredo Daley MD The radiology attending physician has personally reviewed this study, and had reviewed and/or edited this written report and agrees with it. Electronically signed by: Justin Choi MD Narrative 01/07/2024 5:25 PM MINING MANAGER EXAMINATION: 1. ??XR SPINE THORACIC 2 VIEWS, XR SPINE LUMBAR 2 OR 3 VIEWS HISTORY: s/p laminectomy COMPARISON: Radiographs of the thoracic and lumbar spine from 11/14/2023. FINDINGS: 2 radiographs of the lumbar spine and 3 radiographs of the thoracic spine is provided for evaluation. Thoracic: There is exaggerated thoracic kyphosis. ??Thoracic vertebral bodies normal in height. ??Mild multilevel thoracic degenerative disc disease with anterior bridging osteophytes consistent with diffuse idiopathic skeletal hyperostosis. ??Partially imaged left nephroureteral stent. ??Partially imaged inferior vena cava filter. Lumbar: Intact L4/L5 posterior spinal instrumented fusion with discectomy and interbody disc device placement with posterior decompression. Mild to moderate multilevel degenerative disc disease of the unfused lumbar spine. ??Anterior bridging osteophytes along lumbar spine. Procedure Note Justin Choi MD - 01/07/2024 EXAMINATION: 1. XR SPINE THORACIC 2 VIEWS, XR SPINE LUMBAR 2 OR 3 VIEWS HISTORY: s/p laminectomy COMPARISON: Radiographs of the thoracic and lumbar spine from 11/14/2023. FINDINGS: 2 radiographs of the lumbar spine and 3 radiographs of the thoracic spine is provided for evaluation. Thoracic: There is exaggerated thoracic kyphosis. Thoracic vertebral bodies normal in height. Mild multilevel thoracic degenerative disc disease with anterior bridging osteophytes consistent with diffuse idiopathic skeletal hyperostosis. Partially imaged left nephroureteral stent. Partially imaged inferior vena cava filter. Lumbar: Intact L4/L5 posterior spinal instrumented fusion with discectomy and interbody disc device placement with posterior decompression. Mild to moderate multilevel degenerative disc disease of the unfused lumbar spine. Anterior bridging osteophytes along lumbar spine. IMPRESSION: Intact L4-L5 posterior spinal instrumented fusion with discectomy and interbody disc device placement with posterior decompression. Mild to moderate multilevel degenerative disease of the lumbar and thoracic spine with findings consistent with diffuse idiopathic skeletal hyperostosis. Dictated by: Alfredo Daley MD The radiology attending physician has personally reviewed this study, and had reviewed and/or edited this written report and agrees with it. Electronically signed by: Justin Choi MD Marcial Vu Jr., MD IMG XR PROCEDURES F inal Result documented in this encounter Visit Diagnoses Diagnosis S/P laminectomy with spinal fusion Arthrodesis status documented in this encounter Care Teams Marketing Forecaster Relationship Specialty Start Date End Date Rl Medina DO [address] [place] [address] PCP - General 08/09/17 05/25/24 documented as of this encounter
--- OUTSIDE RECORDS SUMMARY | 2024-11-05 19:19 | XMS_ITS | Encounter Summary ---
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 Name Role Phone Rl Medina DO Primary Care Provider Reason for Visit * Auth/Cert (Routine) Specialty Diagnoses / Procedures Referred By Contac t Referred To Contact Diagnoses Nephrolithiasis Nephrolithiasis [N20.0] Procedures IA CYSTO/URETERO W/LITHOTRIPSY &INDWELL STENT INSRT URETEROSCOPY LITHOTRIPSY - LASER EXCHANGE STENT - URETERAL Referral ID Status Reason Start Date Expiration Date Visits Re quested Visits Authorized [id number] 1 1 Encounter Details Date Type Department Care Team (Latest Contact Info) Description 02/27/2024 8:47 AM CDT - 02/27/2024 2:05 PM CDT Hospital Encounter [facility] Operating Room [address] [place] [address] Temo Mcintosh MD [address] [place] [address] Nephrolithiasis (Primary Dx) Discharge Disposition: Discharge to [...] Recorded In the past 12 months has [employer], gas, oil, or water [employer] threatened to shut off services in your [...] on file 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 Gender Identity Not on file Sexual Orientation Not on file 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 Not on file Not on file Not on file documented as of this encounter Last Filed Vital Signs Vital Sign Reading Time Taken Comments Blood Pressure 116/82 02/27/2024 11:55 AM CDT Pulse 71 02/27/2024 10:10 AM CDT Temperature 36.5 ??C (97.7 ??F) 02/27/2024 12:30 PM C DT Respiratory Rate 18 02/27/2024 10:10 AM CDT Oxygen Saturation 94% 02/27/2024 10:10 AM CDT Inhaled Oxygen Concentration - - Weight 81.6 kg (180 lb) 02/14/2024 10:00 AM CDT Height 172.7 cm (5' 8 ) 02/14/2024 10:00 AM CDT Body Mass Index 27.37 02/14/2024 10:00 AM CDT documented in this encounter Discharge Instructions * Discharge Instructions* Jessenia Ash MD - 02/27/2024 12:03 PM CDT Discharge Instructions: Surgery performed: Left ureteroscopy, Left ureteral stent placement, Left nephrostomy removal NOTE: You have a ureteral stent in place. This is a small plastic tube that helps drain the urine from your kidney into your bladder. This is not meant to remain permanently in your kidney; you MUST returnto your urologist for removal/exchange of the stent as instructed. If you have any questions or conc erns, please contact your urologist for further instruction. Normal symptoms you may experience while your stents are in place: - Blood in urine, may be light pink to darker (red wine-colored) - Dysuria- burning with urination - Urgency- the feeling/sensation you have to go - Frequency - going to the restroom more often than normal - Spasms of the ureter or bladder Stent Pain/Bladder Spasms: You may have some pain due to the procedure itself, or due to ureteral stents that may have been placed during your procedure; this is normal. Sometimes ureteral stents may cause your bladder to spasm. This may feel like pain or pressure in your bladder, or like a constant urge to urinate or you may leak urine. New medications: - Acetaminophen and ibuprofen as needed for pain; take this scheduled for the next 72 hours, then afterwards as needed - Docusate/miralax as needed for constipation, available [id number] - Phenazopyridine as needed for pain with urination - Tamsulosin for stent pain - Oxybutynin as needed for bladder spasms; common side effects include dry mouth, constipation, blurry vision, or drowsiness Pain Control: - Start by applying ice packs or heating pads and using over the counter medications such as acetaminophen (Tylenol) or ibuprofen (Advil or Motrin) unless otherwise specified by your doctor. - As you recover, your pain will decrease and you will need less pain medication. You should only take pain medication if you are in pain. You should have been prescribed a medication for stent pain/bladder spasms. If you did not receive this prescription and are having these symptoms, please call the Urology office. Diet: [place] diet: At first eat a bland diet; avoiding foods that are high in fiber, have a lot of spices, or are highin fat. You can begin slowly eating these foods when you are feeling better. Be sure to drink plenty of fluids to ensure adequate hydration and overall better stent function. Activity: - Heavy activity and/or strenuous lifting may cause some blood in your urine; this should stop within 24 hours. Call if you see large clots in your urine or are unable to urinate. - Do NOT drive or operate machinery if you are taking narcotic pain medicine. - You may take showers and bathe. - Walking is encouraged. Climbing stairs is OK. Follow up: Follow up with your urologist in 3 month for stent removal vs exchange in the OR. To schedule this appointment, or if you have any questions or concerns, please call the urology office at . Future Appointments Date Time Provider Department Center 03/18/2024 11:00 AM [facility] N IR 361 [facility] N IR [facility] Main IMG 03/27/2024 10:00 AM Marcial Vu Jr., MD SPINE BW4 OS 04/08/2024 10:00 AM [facility] S PROCEDURE ROOM [facility] EEG [facility] Main 04/09/2024 11:30 AM [facility] S PROCEDURE ROOM [facility] EEG [facility] Main 04/11/2024 8:20 AM [facility] BCT2 [facility] N CT [facility] Main IMG 04/11/2024 9:00 AM Katharine Hampton MD HEM CAM 7 WOOD Devendra 04/11/2024 10:00 AM LAB, CAM 7 ONC ONC LAB CAM7 WOOD ONC LAB 04/11/2024 11:00 AM WOOD [facility] VASLAB CAM ROOM C VASLAB CAM8D JORDAN Contact your doctor if: - You have a fever higher than 101 F (38.3 C). - You have nausea, vomiting or diarrhea. - Your pain medicine is not helping your pain. - You feel dizzy, very tired or like you may faint. - You have large blood clots in your urine. (Small amounts of blood-tinged urine and a few small clots are normal, especially after physical activity.) - You have continuous leakage of urine that is not normal for you. Sunday through Sunday, 8 AM to 5:00 PM: call [phone] and ask for a member of your doctor's team. For urgent matters after 5:00 PM during the week or on weekends or holidays, call [phone] and ask to have the Urology Shuttle Threader Physician paged for you. documented in this encounter Medications at Time of Discharge acetaminophen (TYLENOL) 500 mg tabletIndications:P ain Take 1 tablet (500 mg total) by mouth every 6 (six) hours as needed for pain 30 tablet acyclovir (ZOVIRAX) 400 mg tabletIndications:C hronic Suppression Take 1 tablet (400 mg total) by mouth 2 (two) times a day 4 ascorbic acid (VITAMIN C ORAL)Indications:jordan pplement Take 1 tablet by mouth 2 (two) times a day bisacodyL (DULCOLAX) 10 mg suppositoryIndicati ons:constipation Insert 1 suppository (10 mg total) into the rectum daily as needed for constipation 4 cholecalciferol (VITAMIN D-3) 5,000 unit capsuleIndications: Vitamin D Deficiency Take 1 capsule (5,000 Units total) by mouth every morning 4 cyclobenzaprine (FLEXERIL) 5 mg tablet Take 1 tablet (5 mg total) by mouth 3 (three) times a day as needed for muscle spasms 4 furosemide (LASIX) 40 mg tablet Take 1 tablet (40 mg total) by mouth 2 (two) times a day 4 12/10/19 25 gabapentin (NEURONTIN) 600 mg tabletIndications:P ain Take 1 tablet (600 mg total) by mouth 3 (three) times a day 4 12/09/19 25 metOLazone (ZAROXOLYN) 5 mg tablet Take 1 tablet (5 mg total) by mouth daily miconazole 2 % powder Apply topically 2 (two) times a day 4 Mounjaro 10 mg/0.5 mL pen injector 4 multivitamin tabletIndications:w ound healing Take 1 tablet by mouth early childhood education coordinator before breakfast ondansetron ODT (ZOFRAN-ODT) 4 mg [...] tablet (20 mEq total) by mouth early childhood education coordinator before breakfast 4 senna-docusate (PERICOLACE) 8.6-50 mg Take 1 tablet by mouth nightly 4 tamsulosin (FLOMAX) 0.4 mg extended release capsule Take 1 capsule (0.4 mg total) by mouth daily 30 capsule 4 02/27/20 25 arginine-glutamine- calcium HMB 7-7-1.5 gram powder in packetIndications:w ound Take 1 Dose by mouth 2 (two) times a day Scout 06/02/20 24 dilTIAZem CD 120 mg 24 hr capsuleIndications: hypertension Take 1 capsule (120 mg total) by mouth 2 (two) times a day 4 03/27/20 24 eszopiclone (LUNESTA) 3 mg tabletIndications:I nsomnia Take 1 mg by mouth nightly 4 03/27/20 24 hydroCHLOROthiazide (HYDRODIURIL) 12.5 mg tablet 4 06/02/20 24 levETIRAcetam (KEPPRA) 1,000 mg tablet Take 1 tablet (1,000 mg total) by mouth 2 (two) times a day 4 04/15/20 24 Xarelto 20 mg tabletIndications:D VT Take 1 tablet (20 mg total) by mouth daily with breakfast 4 09/10/20 24 documented as of this encounter Ordered Prescriptions Prescription Sig Dispense Quantity Refills Last Filled Start Date End Date tamsulosin (FLOMAX) 0.4 mg extended release capsule Take 1 capsule (0.4 mg total) by mouth daily 30 capsule 02/27/2024 5 documented in this encounter Discharge Disposition Disposition Code Departure Means Destination Comment s Discharge to home or self care documented in this encounter H&P Notes * Jessenia Ash MD - 02/27/2024 9:31 AM CDT I have reviewed the H&P, examined the patient, and endorse the findings as written. Plan of Care : Based on the above findings, I consider Hira Evans to be an acceptable risk for : Procedure(s): URETEROSCOPY LITHOTRIPSY - LASER EXCHANGE STENT - URETERAL Physical exam: Constitutional: Appears well-developed and well-nourished. No distress. HENT: No nasal cannula nor NGT Eyes: Conjunctivae are normal. Neck: Normal range of motion. Cardiovascular: Normal rate, regular rhythm and intact distal pulses. Pulmonary/Chest: Effort normal. No respiratory distress. Abdominal: Soft. No distension and no mass. There is no tenderness. There is no rebound and no guarding. No hernia. Musculoskeletal: Normal range of motion. No edema or deformity. Lymphadenopathy: No cervical adenopathy. Neurological: Alert and oriented to person, place, and time. Skin: Skin is warm and dry. No rash noted. Not diaphoretic. No erythema. Psychiatric: Normal mood and affect. Cosigned by Temo Mcintosh MD at 02/27/2024 9:49 AM CDT Source Note - Hannah Gay NP - 02/20/2024 1:52 PM CDT Images from the original note were not included. [facility] Preoperative Assessment and Planning Preoperative Evaluation Record Evaluation type/location: TPAP from [facility] Planned procedure site: [facility] PVT OR (Pod 1) Date: 02/20/24 Anesthesia Evaluation Hira Evans is a 73 y.o. male Procedure(s): URETEROSCOPY LITHOTRIPSY - LASER EXCHANGE STENT - URETERAL Pre-Op Diagnosis Codes: * Nephrolithiasis [N20.0] HISTORY HPI Hira Evans is a 73 yo male who is being evaluated prior to undergoing URETEROSCOPY (Left), LITHOTRIPSY - LASER, EXCHANGE STENT - URETERAL. 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 He is now maintained on Xarelto. Past Medical History Information obtained from: patient and chart. Neurological + Seizures (x1 episode 10/23/23 post-op- [...] pass from his upcoming surgical procedure. Plan: 1. Continue Keppra 1g BID 2. Ambulatory 24 hour EEG in mid March Cardiovascular + Hypertension (taken off all antihypertensives [...] DVT/PE episodes: 1. Pertinent negatives: CAD ; NH ; CABG ; atrial fibrillation; pacemaker/ICD; negative for CHF; drug-eluting stent(s) and bare metal stent(s) Respiratory + Pulmonary hypertension (TTE 12/20/23: [facility] PASP, RV mildly reduced systolic function) RV function: mild systolic dysfunction. Pertinent negatives: COPD; sleep apnea (KYLE); no O2 use outside the hospital; non-smoker and no tracheostomy Hepatic / Heme + History of anemia (H/H: 10.5/34.3) Pertinent negatives: liver disease Gastrointestinal + GERD - on daily therapy. Asymptomatic. Renal / + Nephrolithiasis Pertinent negatives: renal disease and dialysis Endocrine / Other + Obesity (BMI >30) + Cancer history Cancer type: prostate cancer s/p protatectomy. Pertinent negatives: diabetes mellitus; thyroid disease; transplanted organ and infectious disease Functional Capacity Functional capacity: <4 METs, ambulates with assistance only and cannot ambulate Comments: Wheel chair bound [...] status: complete. Initial preoperative evaluation discussed with: Clayton Montez MD Additional comments: Hira Evans is a 73 y.o. male who is being evaluated prior to undergoing a low cardiac risk surgery. Revised Cardiac Risk Index factors are (none) for a total RCRI of 0 out of 6. Functional capacity is unable to ambulate. Per anesthesia record 10/23/23: Patient noted to [...] and screen needed Pending labs/tests include: None 01/23/24 labs without significant findings Patient instructions were provided via telephone and faxed to [place]. Patient verbalized understanding of DOS instruction as well as NARENDRA Allen. Case discussed with CPAP attending: Patient with [...] of anticoagulation and IVC filter placement (11/09/23). He was placed back on Xarelto last week after repeat duplex revealed continuedDVTs and Dr. Galvan's team realized he was off AC. Pt is scheduled for heme appt 04/11/24 after DOS. Discussed plan for Xarelto and secure chat with surgeon and POONAM Chowdhury in surgeons office. 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 Estimated creatinine clearance is 75.1 ml/min. Per the [facility] Perioperative Antithrombotic Toolkit, we recommend discontinuing this medication for 72 hours prior to surgery to minimize the duration of anticoagulation discontinuation. Therapeutic anticoagulation should be resumed postoperatively as soon as possible. Alternative anticoagulation therapies can be used in the interim if acceptable. Discussed with surgeon's office. Please call the CPAP clinic ([phone]) to revisit risk assessment, with any questions, or to discuss alternative management plans. Preoperative evaluation performed by Hannah Gay NP on 02/20/24 at 2:18 PM . Patient Active Problem List Diagnosis Date Noted Nephrolithiasis 12/25/2023 DVT (deep venous thrombosis) ([facility]/HCC) ([facility]) 11/29/2023 Anemia 11/29/2023 Paraspinal hematoma 11/29/2023 Hyponatremia 11/29/2023 Elevated transaminase level 11/29/2023 Lower extremity edema 11/29/2023 Scrotal swelling 11/29/2023 Seizure ([facility]) 11/29/2023 Prediabetes 11/29/2023 Kidney stone 11/09/2023 Paralysis of both lower limbs (CMS/HCC) ([facility]) 11/07/2023 Pulmonary embolism ([facility]) 10/26/2023 S/P spinal fusion 10/23/2023 Cardiac arrest ([facility]) 10/23/2023 Left perinephric collection, likely hematoma or [...] Med List Status: Nurse Complete Set By: Lisa Salazar RN at 02/14/2024 11:15 AM Taking? Last Dose Start Date End Date Provider acetaminophen (TYLENOL) 500 mg tablet Past Month 12/27/23 -- Angela Paz MD Take 1 tablet (500 mg total) by mouth every 6 (six) hours as needed for pain acyclovir (ZOVIRAX) 400 mg tablet 02/14/2024 12/10/23 -- Jimenez Henao MD Take 1 tablet (400 mg total) by mouth 2 (two) times a day mtvrdxvd-gvsbqnbpa-ekqaqyp HMB 7-7-1.5 gram powder in packet 02/14/2024 -- -- Fidelia Perdue MD ascorbic acid (VITAMIN C ORAL) 02/14/2024 -- -- Fidelia Perdue MD bisacodyL (DULCOLAX) 10 mg suppository 02/13/2024 12/10/23 -- Jimenez Henao MD Insert 1 suppository (10 mg total) into the rectum daily as needed for constipation Patient taking differently: Insert 1 suppository (10 mg total) into the rectum nightly cholecalciferol (VITAMIN D-3) 5,000 unit capsule 02/14/2024 12/10/23 -- Jimenez Henao MD Take 1 capsule (5,000 Units total) by mouth every morning cyclobenzaprine (FLEXERIL) 5 mg tablet Past Month 12/10/23 -- Jimenez Henao MD Take 1 tablet (5 mg total) by mouth 3 (three) times a day as needed for muscle spasms dilTIAZem CD 120 mg 24 hr capsule 02/14/2024 01/19/24 -- Fidelia Perdue MD eszopiclone (LUNESTA) 3 mg tablet 02/13/2024 01/19/24 -- Fidelia Perdue MD furosemide (LASIX) 40 mg tablet 02/14/2024 12/11/23 12/10/24 Jimenez Henao MD Take 1 tablet (40 mg total) by mouth 2 (two) times a day Patient taking differently: Take 1 tablet (40 mg total) by mouth 3 (three) times a week gabapentin (NEURONTIN) 600 mg tablet Past Month 12/10/23 12/09/24 Jimenez Henao MD Take 1 tablet (600 mg total) by mouth 3 (three) times a day Patient taking differently: Take 1 tablet (600 mg total) by mouth as needed hydroCHLOROthiazide (HYDRODIURIL) 12.5 mg tablet -- 01/21/24 -- Fidelia Perdue MD levETIRAcetam (KEPPRA) 1,000 mg tablet 02/14/2024 12/10/23 12/09/24 Jimenez Henao MD Take 1 tablet (1,000 mg total) by mouth 2 (two) times a day Patient taking differently: Take 1 tablet (1,000 mg total) by mouth 2 (two) times a day metOLazone (ZAROXOLYN) 5 mg tablet -- -- -- Fidelia Perdue MD miconazole 2 % powder Past Month 12/10/23 -- Jimenez Henao MD Apply topically 2 (two) times a day Patient taking differently: Apply topically 2 (two) times a day Mounjaro 10 mg/0.5 mL pen injector -- 12/27/23 -- Fidelia Perdue MD multivitamin tablet 02/14/2024 -- -- iFdelia Perdue MD ondansetron ODT (ZOFRAN-ODT) 4 mg disintegrating tablet Past Month 01/10/24 -- Fidelia Perdue MD pantoprazole DR (PROTONIX) 40 mg EC tablet 02/14/2024 12/11/23 12/10/24 Jimenez Henao MD Take 1 tablet (40 mg total) by mouth daily Patient taking differently: Take 1 tablet (40 mg total) by mouth every morning potassium chloride ER 20 mEq CR tablet 02/14/2024 01/22/24 -- Fidelia Perdue MD senna-docusate (PERICOLACE) 8.6-50 mg 02/14/2024 12/10/23 -- Jimenez Henao MD Take 1 tablet by mouth nightly Patient taking differently: Take 1 tablet by mouth early childhood education coordinator before breakfast tamsulosin (FLOMAX) 0.4 mg extended release capsule () -- 12/10/23 02/07/24 Jimenez Henao MD Take 2 capsules (0.8 mg total) by mouth daily with dinner Patient taking differently: Take 2 capsules (0.8 mg total) by mouth nightly 2 tablets Xarelto 15 mg tablet 02/14/2024 02/07/24 -- Fidelia Perdue MD Xarelto 20 mg tablet Not Taking 02/07/24 -- Fidelia Perdue MD Notes: Has not started No current facility-administered medications for this encounter. Current Outpatient Medications: acetaminophen (TYLENOL) 500 mg tablet acyclovir (ZOVIRAX) 400 mg tablet glrcepsp-hjuhbeknb-dflzboe HMB 7-7-1.5 gram powder in packet ascorbic acid (VITAMIN C ORAL) bisacodyL (DULCOLAX) 10 mg suppository cholecalciferol (VITAMIN D-3) 5,000 unit capsule cyclobenzaprine (FLEXERIL) 5 mg tablet dilTIAZem CD 120 mg 24 hr capsule eszopiclone (LUNESTA) 3 mg tablet furosemide (LASIX) 40 mg tablet gabapentin (NEURONTIN) 600 mg tablet levETIRAcetam (KEPPRA) 1,000 mg tablet miconazole 2 % powder multivitamin tablet ondansetron ODT (ZOFRAN-ODT) 4 mg disintegrating tablet pantoprazole DR (PROTONIX) 40 mg EC tablet potassium chloride ER 20 mEq CR tablet senna-docusate (PERICOLACE) 8.6-50 mg Xarelto 15 mg tablet hydroCHLOROthiazide (HYDRODIURIL) 12.5 mg tablet metOLazone (ZAROXOLYN) 5 mg tablet Mounjaro 10 mg/0.5 mL pen injector tamsulosin (FLOMAX) 0.4 mg extended release capsule Xarelto 20 mg tablet Social History Tobacco Use Smoking Status Former Current packs/day: 0.00 Average packs/day: 1 pack/day for 11.0 years (11.0 ttl pk-yrs) Types: Cigarettes Start date: 1968 Quit date: 1979 Years since quittin.3 Passive exposure: Never Smokeless Tobacco Never Alcohol Use: Not At Risk (02/14/2024) AUDIT-C Frequency of Alcohol Consumption: Monthly or less Average Number of Drinks: 1 or 2 Frequency of Binge Drinking: Never Recent Concern: Alcohol Use - Alcohol Misuse (12/25/2023) AUDIT-C Frequency of Alcohol Consumption: 4 or more times a week Average Number of Drinks: 1 or 2 Frequency of Binge Drinking: Less than monthly Substance and Sexual Activity Drug Use Not Currently Frequency: 2.0 times per week [...] is unclear if this is working. 2. Harris catheter in place with the balloon inflated in the proximal bulbar urethra and tip terminating near the vesicourethral anastomosis. 11/14/23: Cspine XR: IMPRESSION: 1. Unchanged combined posterior and anterior instrumented L4-L5 fusion. PT: No results found for requested labs within last 30 days. INR: No results found for requested labs within last 30 days. APTT: No results found for requested labs within last 30 days. Hgb A1C: No results found for requested labs within last 30 days. CBC RBC: 01/23/2024: 3.71 M/cumm (L) RDW: No results found for requested labs within last 30 days. MCHC: 01/23/2024: 30.6 g/dL (L) MCH: 01/23/2024: 28.3 pg MCV: 01/23/2024: 92.5 fL Hct: 01/23/2024: 34.3 % (L) Hgb: 01/23/2024: 10.5 g/dL (L) WBC: 01/23/2024: 9.2 K/cumm MPV: 01/23/2024: 11.3 fL Platelets: 01/23/2024: 196 K/cumm RDW CV: 01/23/2024: 14.1 % RDW Sd: 01/23/2024: 47.4 fL BMP Glucose: 01/23/2024: 145 mg/dL Calcium: 01/23/2024: 9.6 mg/dL Sodium: 01/23/2024: 142 mmol/L Potassium: No results found for requested labs within last 30 days. CO2: 01/23/2024: 31 mmol/L Chloride: 01/23/2024: 100 mmol/L BUN: 01/23/2024: 38 mg/dL (H) Creatinine: 01/23/2024: 0.86 mg/dL Joni index score: 30 documented in this encounter Miscellaneous Notes * Op Note - Temo Mcintosh MD - 02/27/2024 10:49 AM CDT Operative Report SURGEON: Temo Mcintosh MD SURGICAL TEAM: Surgeons and Role: * Temo Mcintosh MD - Primary * Jessenia Ash MD - Resident - Assisting DATE OF SURGERY : 02/27/2024 PREOPERATIVE DIAGNOSIS: Pre-op Diagnosis * Nephrolithiasis [N20.0] POSTOPERATIVE DIAGNOSIS: Post-op Diagnosis * Nephrolithiasis [N20.0] PROCEDURE: Cystoscopy, left retrograde pyelogram Left ureteroscopy Left ureteral stent placement Nephrostomy tube removal ANESTHESIA: General INDICATION FOR PROCEDURE: 73-year-old man history of an impacted ureteral stone requiring ureteroscopy that was complicated by lost-access in the setting of a suspected ureteral stricture requiring nephrostomy tube placement that now presents for repeat retrograde ureteroscopy, possible antegrade approach. OPERATIVE NOTE: Findings: 1. Significant urinary debris requiring irrigation to improve visualization 2. Left retrograde with significant tortuosity of the proximal ureter, moderate left hydronephrosis 3. No renal or ureteral stones 4. Left stent placement and nephrostomy tube removed Patient was identified in the preoperative unit where consent was obtained. He was then transportedto the operating room where general anesthesia and perioperative antibiotics were administered. He was then rolled onto the operating room table in a modified Superman position. Care was taken to padall pressure points. SCDs were on and functioning. The left flank and genitals were prepped and draped in a normal sterile fashion. A time-out was was performed confirming the correct patient and procedure. We started the case by atraumatically introducing a flexible cystoscope into the bladder. There wasa significant volume of urinary debris that required irrigation to improve visualization of the bladder. With improved visualization, no papillary bladder masses or luminal lesions were identified. The ureteral orifices were in orthotopic position. We turned our attention to the left ureteral orifice. A 0.035 in guidewire was introduced into the left kidney using spot fluoroscopy. Remarkably, the guidewire advanced without resistance into the kidney. A dual-lumen catheter was used to obtain a retrograde pyelogram. This nicely opacified both the ureter and the renal pelvis. We noted significant tortuosity of the UPJ. The kidney was mildly hydronephrotic and this collecting system was simple appearing. We did not identify any significant filling defects. An additional wire was placed as a safety wire. Over a working wire, a 11 x 13 ureteral access sheath was placed with the tip terminating at the level of the UPJ. No significant resistance was encountered. We switched to the flexible ureteroscope to perform pyeloscopy. Within the kidney we could see the nephrostomy tube. It was minimally encrusted. We did not identify any stones within the kidney. The ureter was carefully examined during scopeextraction and appeared to be benign. There were no stones within the ureter. Beyond the level of the UPJ, we did not identify any significant strictures. The ureter appeared to be well healed from the prior impacted stone. Given the significant tortuosity of the UPJ, and the plan to remove the nephrostomy tube, we elected to place a stent. A 6 x 26 double-J silicone stent was placed in the standard fashion. Stent curl within the renal pelvis was confirmed fluoroscopically. Stent curl within the bladder was directly vi sualized cystoscopically. The strings were removed. Nephrostomy tube access was removed. The nephrostomy access site was dressed with a combination of a 4 x 4 and a Tegaderm patch. This concluded the case. There were no immediate complications. The bladder was drained and the cystoscope was removed. Anesthesia was reversed and patient was transported to PACU in stable condition. The stent will be maintained for approximately 3 months. We will plan on obtaining retrogrades at this next scheduled procedure to determine his candidacy for possible stent removal. Estimated Blood Loss: No blood loss documented. Blood/Blood Products Transfused: None Complications: None Condition on Discharge from the operating room was stable Temo Mcintosh MD Date: 02/27/2024 Time: 2:39 PM TEACHING ATTESTATION : I was present and directly participated in the entire procedure (including opening and closing). * Brief Op Note - Temo Mcintosh MD - 02/27/2024 10:49 AM CDT Operative Progress Note Surgical Team: Surgeons and Role: * Temo Mcintosh MD - Primary * Jessenia Ash MD - Resident - Assisting Anesthesiologist: Larissa Mathews MD LEAN LEADER: Mlidred Harrison CRNA; Olivia Silvestre CRNA Health Assessment And Treatment Teacher: Honorio Bhakta RN Scrub Relief: Marla Benson RN Scrub: Eula Marroquin RN; Nelly Lo RN REHABILITATION SPECIALIST: Robb Roth DATE OF SURGERY : 02/27/2024 Preoperative Diagnosis: Pre-op Diagnosis * Nephrolithiasis [N20.0] Postoperative Diagnosis: Post-op Diagnosis * Nephrolithiasis [N20.0] Procedure(s): Cystoscopy, left retrograde pyelogram Diagnostic left ureteroscopy Left ureteral stent placement Operative Findings: Significant urinary debris requiring irrigation to improve visualization Left retrograde with significant tortuosity of the proximal ureter, moderate left hydronephrosis No renal or ureteral stones Left stent placement and nephrostomy removed Estimated Blood Loss: None Intraoperative Fluids: Per anesthesia Specimens: No specimen collected in procedure Implants: Implant Name Type Inv. Item Serial No. Knit Tubing Dyer Lot No. LRB No. Used Action [employer] [id number] 6fr 26cm 145cm Radiopaque Positioner Filiform Flexible Tip - [id number] Stent [employer] [id number] 6fr 26cm 145cm Radiopaque Positioner Filiform Flexible Tip [employer] [id number] Left 1 Implanted [employer] UNIVERSA 6FR 28CM FIRM POSITIONER MONOFILAMENT TETHER STENT [id number] - [id number] Stent [employer] UNIVERSA 6FR 28CM FIRM POSITIONER MONOFILAMENT TETHER STENT [id number] [employer] [id number] Left 1 Explanted Blood/Blood Products Transfused: None Complications: None Condition on Discharge from the operating room was stable Temo Mcintosh MD Date: 02/27/2024 Time: 11:48 AM TEACHING ATTESTATION : I was present and directly participated in the entire procedure (including opening and closing). * Pre-Procedure Instructions - Hannah Gay NP - 02/20/2024 1:48 PM CDT [facility] CP[facility] Clinic Location: [facility] The night before your surgery: * Do [...] valuables at home or with your family. Outpatient Surgery: * You must have a [...] needed acyclovir (ZOVIRAX) 400 mg tablet Take on day of surgery if needed gnlvcdhl-ddwyupwno-xmpdvgx HMB 7-7-1.5 gram powder in packet Don't take on day of surgery ascorbic acid (VITAMIN C ORAL) Don't take on day of surgery bisacodyL (DULCOLAX) 10 mg suppository Don't take on day of surgery cholecalciferol (VITAMIN D-3) 5,000 unit capsule Don't take on day of surgery cyclobenzaprine (FLEXERIL) 5 mg tablet Don't take on day of surgery dilTIAZem CD 120 mg 24 hr capsule Per usual schedule eszopiclone (LUNESTA) 3 mg tablet Don't take on day of surgery furosemide (LASIX) 40 mg tablet Don't take on day of surgery levETIRAcetam (KEPPRA) 1,000 mg tablet Per usual schedule miconazole 2 % powder Don't take on day of surgery multivitamin tablet Don't take on day of surgery ondansetron ODT (ZOFRAN-ODT) 4 mg disintegrating tablet Take on day of surgery if needed pantoprazole DR (PROTONIX) 40 mg EC tablet Per usual schedule potassium chloride ER 20 mEq CR tablet Don't take on day of surgery senna-docusate (PERICOLACE) 8.6-50 mg Don't take on day of surgery hydroCHLOROthiazide (HYDRODIURIL) 12.5 mg tablet Don't take on day of surgery metOLazone (ZAROXOLYN) 5 mg tablet Don't take on day of surgery Mounjaro 10 mg/0.5 mL pen injector Don't take on day of surgery tamsulosin (FLOMAX) 0.4 mg extended release capsule Don't take on day of surgery Xarelto 20 mg tablet HOLD 72 hours prior to surgery Your surgeon will tell you IF YOU SHOULD STOP the following medications and WHEN TO STOP taking them. Do not stop taking them on your own without being told to do so: -XARELTO General Instructions For Medications: * Stop all of these medications 5 days prior to your surgery: excedrin, motrin, advil, ibuprofen, aleve, naproxen, meloxicam, celebrex, celecoxib. For medications that you are instructed to take on the morning of surgery, take the medications with a few sips of water. Stop all of these medications 7-14 days prior to your surgery: Vitamin E, Herbal medicines, Diet Pills If you have pain, you may take [...] You have started taking any new medications You have questions about a bowel prep or special diet before surgery You have symptoms of COVID-19 such as a new or worsening cough, shortness of breath, fever, body aches, loss of taste or smell, diarrhea or vomiting, or sore throat. You have a household contact with COVID-19. You test positive for COVID-19. * Perioperative Nursing Note - Lisa Salazar RN - 02/14/2024 11:15 AM CDT Center for Preoperative Assessment and Planning Perioperative Nursing Note Telephone Preoperative Evaluation ([facility]) - TELEPHONE ONLY, NO PHYSICAL EXAM Date: 02/14/24 This assessment was completed with the patient's medicare sales representative, [facility] facility . Vitals: 02/14/24 1000 Weight: 81.6 kg (180 lb) Height: 172.7 cm (5' 8 ) CHEST CIRCUMFERENCE: Social History Tobacco Use Smoking Status Former Current packs/day: 0.00 Average packs/day: 1 pack/day for 11.0 years (11.0 ttl pk-yrs) Types: Cigarettes Start date: 1968 Quit date: 1980 Years since quittin.3 Passive exposure: Never Smokeless Tobacco Never Substance and Sexual Activity Drug Use Not Currently Frequency: 2.0 times per week Types: Medical marijuana Alcohol Use Q1: How often do you have a drink containing alcohol?: Monthly or less Q2: How many drinks containing alcohol do you have on a typical day when you are drinking?: 1 or 2 Q3: How often do you have six or more drinks on one occasion?: Never Outpatient Medications Marked as Taking for the 02/27/24 encounter (Hospital Encounter) Medication Sig Dispense Refill acetaminophen (TYLENOL) 500 mg tablet Take 1 tablet (500 mg total) by mouth every 6 (six) hours as needed for pain 30 tablet 0 acyclovir (ZOVIRAX) 400 mg tablet Take 1 tablet (400 mg total) by mouth 2 (two) times a day trswgblx-cqkqvcjrk-wakktsa HMB 7-7-1.5 gram powder in packet Take [...] times a day asneeded for muscle spasms dilTIAZem CD 120 mg 24 hr capsule Take 1 capsule (120 mg total) by mouth 2 (two) times a day eszopiclone (LUNESTA) 3 mg tablet Take 1 mg by mouth nightly furosemide (LASIX) 40 mg [...] (600 mg total) by mouth as needed) levETIRAcetam (KEPPRA) 1,000 mg tablet Take 1 tablet (1,000 mg total) by mouth 2 (two) times a day (Patient taking differently: Take 1 tablet (1,000 mg total) by mouth 2 (two) times a day) miconazole 2 % powder Apply topically 2 (two) times a day (Patient taking differently: Apply topically 2 (two) times a day) multivitamin tablet Take 1 tablet by mouth early childhood education coordinator before breakfast ondansetron ODT (ZOFRAN-ODT) 4 mg [...] tablet (20 mEq total) by mouth early childhood education coordinator before breakfast senna-docusate (PERICOLACE) 8.6-50 mg Take 1 tablet by mouth nightly (Patient taking differently: Take 1 tablet by mouth early childhood education coordinator before breakfast) Xarelto 15 mg tablet Take 1 tablet (15 mg total) by mouth 2 (two) times a day For 21 days Implants Bone Cement [facility] 6197-9-010 Simplex P Full Dose Radiopaque Preblend Cement Bone Tobramycin - S0- [id number] - Implanted (Right) Knee Inventory item: [employer] Simplex P Full Dose Radiopaque Preblend Cement Bone [id number] Model/Cat number: [id number] Serial number: 0 Knit Tubing Dyer: [facility] Lot number: [id number] Device identifier: [id number] Device identifier type: [facility] As of 09/30/2019 Status: Implanted Other - see comments [employer] [id number] Kandace II 15mm Constrain Knee 5-6 Insert Articular Uhmwpe- S0 - [id number] - Implanted (Right) Knee Inventory item: [employer] Kandace Ii 15mm Constrain Knee 5-6 Insert ArticularUhmwpe [id number] Model/Cat number: [id number] Serial number: 0 Knit Tubing Dyer: [employer] Lot number: [id number] As of 09/30/2019 Status: Implanted [employer] [id number] Legion 10mm Screw Knee 6 Wedge Femoral - S0 - [id number] -Implanted (Right) Knee Inventory item: [employer]ORTH[employer] Legion 10mm Screw Knee 6 Wedge Femoral [id number] Model/Cat number: [id number] Serial number: 0 Knit Tubing Dyer: [employer] Device identifier: [id number] Device identifier type: [facility] As of 09/30/2019 Status: Implanted [employer] [id number] Legion Constrain Knee Right 6 Component Femoral Oxinium - S0 - [id number] - Implanted (Right) Knee Inventory item: [employer]ICH[employer]ORTH[employer] Legion Constrain Knee Right 6 Component Femoral Oxinium [id number] Model/Cat number: [id number] Serial number: 0 Knit Tubing Dyer: [employer] Lot number: [id number] As of 09/30/2019 Status: Implanted [employer] [id number] Legion 5mm Alcon Step Knee Right Medial Left Lateral 5-6 Wedge - S0 - [id number] - Implanted (Right) Knee Inventory item: [employer] Legion 5mm Alcon Step Knee Right Medial Left Lateral5-6 Wedge [id number] Model/Cat number: [id number] Serial number: 0 Knit Tubing Dyer: [employer] Device identifier: [id number] Device identifier type: [facility]IB As of 09/30/2019 Status: Implanted [employer] [id number] Legion 15mm 160mm Press Fit Knee Stem Femoral - S0 - [id number] - Implanted (Right) Knee Inventory item: [employer]ICH[employer] Legion 15mm 160mm Press Fit Knee Stem Femoral [id number] Model/Cat number: [id number] Serial number: 0 Knit Tubing Dyer: [employer] Lot number: [id number] As of 09/30/2019 Status: Implanted [employer] [id number] Legion 10mm Screw Knee 6 Wedge Femoral - S0 - [id number] -Implanted (Right) Knee Inventory item: [employer] Legion 10mm Screw Knee 6 Wedge Femoral [id number] Model/Cat number: [id number] Serial number: 0 Knit Tubing Dyer: [employer] Lot number: [id number] As of 09/30/2019 Status: Implanted [employer] [id number] Legion Revision Knee Right 5 Baseplate Tibial - S0 - [id number] - Implanted (Right) Knee Inventory item: [employer] Legion Revision Knee Right 5 Baseplate Tibial [id number] Model/Cat number: [id number] Serial number: 0 Knit Tubing Dyer: [employer] Lot number: [id number] Device identifier: [id number] Device identifier type: GS As of 09/30/2019 Status: Implanted [employer] [id number] Legion 15mm 160mm Press Fit Knee Stem Femoral - S0 - [id number] - Implanted (Right) Knee Inventory item: [employer]RICHCO[employer]ORTHO Legion 15mm 160mm Press Fit Knee Stem Femoral [id number] Model/Cat number: [id number] Serial number: 0 Knit Tubing Dyer: [employer] Lot number: [id number] Device identifier: [id number] Device identifier type: GS1 As of 09/30/2019 Status: Implanted [facility] 5517-F-501 Triathlon Cruciate Retain Bead Knee Left 5 Component Femoral Pa - Sn/A - [id number] - Implanted (Left) Knee Inventory item: [facility] Triathlon Cruciate Retain Bead Knee Left 5 Component Femoral Pa 5517-F-501 Model/Cat number: [id number] Serial number: N/A Knit Tubing Dyer: [facility] Lot number: [id number] Device identifier: [id number] Device identifier type: GS1 As of 10/17/2021 Status: Implanted [facility] 5536-B-600 Triathlon Knee 6 Baseplate Tibial Tritanium - Sn/A - [id number] - Implanted (Left) Knee Inventory item: [employer] Triathlon Knee 6 Baseplate Tibial Tritanium 5536-B-600 Model/Cat number: [id number] Serial number: N/A Knit Tubing Dyer: [facility] Lot number: [id number] Device identifier: [id number] Device identifier type: GS1 As of 10/17/2021 Status: Implanted [facility] 9003-A-652-E Insert Tibial Triathlon 6 H10mm Knee Bearing Condylar Stabilize Sterile - Sn/A - [id number] - Implanted (Left) Knee Inventory item: [employer] Insert Tibial Triathlon 6 H10mm Knee Bearing Condylar Stabilize Sterile 5173-D-774-E Model/Cat number: [id number] Serial number: N/A Knit Tubing Dyer: [facility] Lot number: [id number] Device identifier: [id number] Device identifier type: GS1 As of 10/17/2021 Status: Implanted Stent [employer] Universa 6fr 28cm Firm Positioner Monofilament Tether Stent [id number] - [id number] -Implanted (Left) Ureter Inventory item: [employer] UNIVERSA 6FR 28CM FIRM POSITIONER MONOFILAMENT TETHER STENT [id number]/Cat number: [id number] Knit Tubing Dyer: [employer] Lot number: [id number] Size: 6x28 Device identifier: [id number] Device identifier type: GS1 As of 10/18/2023 Status: Implanted Type Not Specified [facility] 6197-9-010 Simplex P Full Dose Radiopaque Preblend Cement Bone Tobramycin - [id number] - Implanted (Right) Knee Inventory item: [employer] Simplex P Full Dose Radiopaque Preblend Cement Bone Hhngansmll4121-5-097 Model/Cat number: [id number] Knit Tubing Dyer: [facility] Device identifier: [id number] Device identifier type: GS1 As of 09/30/2019 Status: Implanted [employer] Crushed Chip Frozen Graft 30ml Bone Cancellous [id number] - [id number] - Implanted Spine Lumbar Inventory item: [employer] Crushed Chip Frozen Graft 30ml Bone Cancellous [id number] Model/Cat number: [id number] Knit Tubing Dyer: [employer] Lot number: [id number] As of 10/23/2023 Status: Implanted [employer] Inc Allograft Bone Putty 2.5cc 700-025 - [id number] - Implanted Spine Lumbar Inventory item: [employer] Allograft Bone Putty 2.5CC 700-025 Model/Cat number: [id number] Knit Tubing Dyer: [employer] Lot number: [id number] Device identifier: [id number] Device identifier type: GS1 As of 10/23/2023 Status: Implanted [employer] Creo Od7.5 Mm L55 Mm Thread Polyaxial Spine Screw Bone Titanium 5146.1757 - [id number] - Implanted Spine Lumbar Inventory item: [employer] Creo Od7.5 Mm L55 Mm Thread Polyaxial Spine Screw Bone Titanium 5146.1757 Model/Cat number: [id number] Knit Tubing Dyer: [employer] As of 10/23/2023 Status: Implanted [employer] Creo Od7.5 Mm L50 Mm Thread Polyaxial Spine Screw Bone Titanium 5146.1752 - [id number] - Implanted Spine Lumbar Inventory item: [employer] Creo Od7.5 Mm L50 Mm Thread Polyaxial Spine Screw Bone Titanium 5146.1752 Model/Cat number: [id number] Knit Tubing Dyer: [employer] As of 10/23/2023 Status: Implanted [employer] Creo Thread Spinal Cap Locking Nonsterile 1119.0010 - [id number] - Implanted Spine Lumbar Inventory item: [employer] Creo Thread Spinal Cap Locking Nonsterile 1119.0010 Model/Cat number: [id number] Knit Tubing Dyer: [employer] As of 10/23/2023 Status: Implanted [employer] Implant Spinal Sable 73k52rm 7-14mm 15 Deg 1172.1s - [id number] - Implanted Spine Lumbar Inventory item: [employer] Implant Spinal Sable 57p92ys 7-14mm 15 Deg 1172.1S Model/Cat number: [id number] Knit Tubing Dyer: [employer] As of 10/23/2023 Status: Implanted [employer] Creo 5.5mm 45mm Curve Daniel Spinal Titanium 1119.7045 - [id number] - Implanted Spine Lumbar Inventory item: [employer] Creo 5.5mm 45mm Curve Daniel Spinal Titanium 1119.7045 Model/Cat number: [id number] Knit Tubing Dyer: [employer] As of 10/23/2023 Status: Implanted [employer] Rex Tulip Navalign 30mm 7fr 50mm 65cm Introducer Sheath [id number] - [id number] -Implanted Inventory item: [employer] Rex Tulip Navalign 30mm 7fr 50mm 65cm Introducer Sheath [id number]/Cat number: [id number] Knit Tubing Dyer: [employer] Lot number: [id number] As of 11/09/2023 Status: Implanted SKIN Piercings Remaining: No Wound (LDAs) Type of Wound (LDA): (healing wound to buttocks- per LTC facility) SCREENINGS Joni index score: 30 PATIENT CARE PLANNING Advance Directives (For Healthcare) Have you reviewed your Advance Directive and is it valid for this stay?: Yes Advance Directive: Patient has advance directive, copy in chart Communication/Early Childhood Education Worker Needs Communication Needs: None Assistive Devices/DME: Eyeglasses, Manual wheelchair Hearing - Right Ear: Functional Hearing - Left Ear: Functional 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 You should leave your valuables and any jewelry at home. No metal or piercings are allowed in the operating room. You should bring your insurance card, a photo ID (example: [place]iftman's License) and a method of payment for [...] copy is already in your Epic Chart. A Guide for Patients Having Surgery: Your [...] Pathway to Excellent Care by the followinglink: [email or web address] How To Prepare Your Skin For Surgery [...] Remove nail coverings, artificial nails and nail cuban. Place clean linens on your bed the [...] questions, please call the CPAP Staff at [phone], Sunday-Sunday 8am-4:30pm. All patients should read the below section: COVID 19 Updates & Visitor Policy: Please access [email or web address] for the most updated information. Information on [facility]: Please view [email or web address] (Patient & Visitor Information) for additional details regarding Advanced Directive forms, AWARE, directions, parking information, lodging, Internet access, dining and more. Information on [facility] or [facility] ([facility]): Please view [email or web address] (Patient and Visitor Information) for parking/directions and more. For MyChart information, to activate account or password recovery, please go to [email or web address] or call [phone] (toll-free: [phone]), Sun- Sunday 8am-5pm. Information for Suicide Prevention: National Suicide Prevention Lifeline (5-054- 542-XVYX (0760)) or call or text 431. Chat resources: [email or web address]. Surgery Times: For patients having surgery @ [facility] or [facility] ([facility]), if your surgeon's office has not notified you of your surgery time by NOON THE BUSINESS DAY BEFORE your surgery, please call [phone] and ask for your surgeon's office Dr. Shai Mcintosh. The Center for Preoperative Assessment & Planning (CPAP) does not provide arrival times for the day of surgery or provide the duration of surgery. This information is provided by your surgeon'soffice or by the center where you are having surgery. We appreciate your understanding. documented in this encounter Plan of Treatment Not on file documented as of this encounter Procedures Procedure Name Priority Date/Time Associated Diagnosis Comments FL FLUOROSCOPY < 1 HOUR IP Routine 02/27/2024 11:50 AM CDT URINE CULTURE Routine 02/27/2024 10:57 AM CDT PYELOGRAM - RETROGRADE 02/27/2024 10:14 AM CDT Nephrolithiasis Case Notes 4/@0815- [place] will come out for the patient per Luciana via email.EF 01/31@0639- Laser conflict error sent msg to Luciana.EF EXCHANGE NEPHROSTOMY TUBE 02/27/2024 10:14 AM CDT Nephrolithiasis Case Notes 4/@0815- [place] will come out for the patient per Luciana via email.EF 01/31@0639- Laser conflict error sent msg to Luciana.EF EXCHANGE STENT - URETERAL 02/27/2024 10:14 AM CDT Nephrolithiasis Case Notes 4/@0815- [place] will come out for the patient per Luciana via email.EF 01/31@0639- Laser conflict error sent msg to Luciana.EF URETEROSCOPY 02/27/2024 10:14 AM CDT Nephrolithiasis Case Notes 4/@0815- [place] will come out for the patient per Luciana via email.EF 01/31@0639- Laser conflict error sent msg to Luciana.EF documented in this encounter Results * FL Fluoroscopy < 1 Hour (02/27/2024 11:50 AM CDT) Narrative [facility] - 02/27/2024 11:51 AM CDT The images from this study are not interpreted by Radiology. ??Please refer to the physician's procedure / OR operative note. us Temo Mcintosh MD IMG FLUOROSCOPY PROCEDUR ES Final Result [facility] * (ABNORMAL) Urine culture Urine, bladder (02/27/2024 10:57 AM CDT) Report Final Report: Greater than or equal to 100,000 colonies/mL of Escherichia coli Greater than or equal to 100,000 colonies/mL of Escherichia coli #2 Greater than or equal to 100,000 colonies/mL of Enterococcus faecalis (.) Organism ESCHERICHIA COLI [facility] Organism ESCHERICHIA COLI [facility] Organism ENTEROCOCCUS FAECALIS [facility] Urine, bladder 02/27/2024 10 :57 AM CDT 02/27/2024 2:16 PM CDT Narrative CERNER [facility] - 03/02/2024 1:39 PM CDT Bladder Urine Indications for Culture:->Urology patient Specimen received in a sterile container. Testing performed by [facility] ([phone]) Organism Antibiotic Method Susceptibility Escherichia coli Ampicillin INTERPRETATION Resistant Escherichia coli Cefazolin INTERPRETATION Susceptible Escherichia coli Nitrofurantoin INTERPRETATION Susceptible Escherichia coli Gentamicin INTERPRETATION Susceptible Escherichia coli Trimethoprim with Sulfamethoxazole INTERPRETATION Susceptible Escherichia coli Meropenem INTERPRETATION Susceptible Escherichia coli Cefepime INTERPRETATION Susceptible Escherichia coli Ciprofloxacin INTERPRETATION Susceptible Escherichia coli Ceftazidime INTERPRETATION Susceptible Escherichia coli Ceftriaxone INTERPRETATION Susceptible Escherichia coli Piperacillin/Tazobactam INTERPRETATIO N Susceptible Escherichia coli Cephalexin INTERPRETATION Susceptible Escherichia coli Cefuroxime-axetil INTERPRETATION Susceptible Escherichia coli Cefdinir INTERPRETATION Susceptible Escherichia coli Ampicillin INTERPRETATION Resistant Escherichia coli Cefazolin INTERPRETATION Susceptible Escherichia coli Nitrofurantoin INTERPRETATION Susceptible Escherichia coli Gentamicin INTERPRETATION Susceptible Escherichia coli Trimethoprim with Sulfamethoxazole INTERPRETATION Susceptible Escherichia coli Meropenem INTERPRETATION Susceptible Escherichia coli Cefepime INTERPRETATION Susceptible Escherichia coli Ciprofloxacin INTERPRETATION Susceptible Escherichia coli Ceftazidime INTERPRETATION Susceptible Escherichia coli Ceftriaxone INTERPRETATION Susceptible Escherichia coli Piperacillin/Tazobactam INTERPRETATIO N Susceptible Escherichia coli Cephalexin INTERPRETATION Susceptible Escherichia coli Cefuroxime-axetil INTERPRETATION Susceptible Escherichia coli Cefdinir INTERPRETATION Susceptible Enterococcus faecalis Ampicillin (SATISH) INTERPRETATIO N Susceptible Enterococcus faecalis Vancomycin (SATISH) INTERPRETATIO N Susceptible Enterococcus faecalis Linezolid (SATISH) INTERPRETATIO N Susceptible Enterococcus faecalis Doxycycline (SATISH) INTERPRETATIO N Susceptible Enterococcus faecalis Nitrofurantoin (SATISH) INTERPRETAT ION Susceptible us Temo Mcintosh MD LAB MICROBIOLOGY - GENER AL ORDERABLES Final Result LAURA ZARAGOZA [facility] Department [place] [address] documented in this encounter Visit Diagnoses Diagnosis Nephrolithiasis- Primary Calculus of kidney Nephrolithiasis Calculus of kidney documented in this encounter Admitting Diagnoses Diagnosis Nephrolithiasis Calculus of kidney documented in this encounter Administered Medications Inactive Administered Medications - up to 3 most recent administrations Medication Order MAR Action Action Date Dose Rate Site acetaminophen (TYLENOL) tablet 1,000 mg 1,000 mg, oral, Once, On Sun02/27/24 at 1000, For 1 dose, Pre-Op, Indications: Pre-Emptive AnalgesiaIndications:Pre-Emp tive Analgesia Given 02/27/2024 10:05 AM CDT 1,000 mg Carrier Fluids for Secondary Infusion - 0.9% Sodium Chloride 30 mL, intravenous, As needed, For priming tubing and/or flushing, Starting on Sun02/27/24 at 0920, Pre-Op, 0-250 ml/hr to flush line after IV infusions when no maintenance IV ordered. Infuse 30mL at the same rate as the secondary infusion. Run as primary IV, not intended for KVO. famotidine (PEPCID) injection 20 mg 20 mg, intravenous, Administer over 2 Minutes, Once, On Sun02/27/24 at 1000, For 1 dose, Pre-Op, Indications: RefluxIndications:Reflux Given 02/27/2024 10:04 AM CDT 20 mg Lactated Ringer's (LR) infusion 30 mL/hr, intravenous, Continuous, Starting on Sun02/27/24 at 1000, Pre-Op New Bag 02/27/2024 10:09 AM CDT 30 mL/hr 30 mL/ hr sodium chloride 0.9% flush 0.5-20 mL 0.5-20 mL, intra-catheter, As needed, line care, Starting on Sun02/27/24 at 0920, Pre-Op, Flush volume based on line type and size. Flush before and after each use. documented in this encounter Discontinued Medications Medication Sig Discontinue Reason Start Date End Da te zolpidem (AMBIEN) 5 mg tabletIndications:Slee p-Onset Insomnia Take 1 tablet (5 mg total) by mouth nightly as needed for sleep 02/14/2024 ramelteon (ROZEREM) 8 mg tabletIndications:Slee p-Onset Insomnia Take 1 tablet (8 mg total) by mouth nightly 02/14/2024 oxyCODONE (ROXICODONE) 5 mg immediate release tabletIndications:Pain Take 1 tablet (5 mg total) by mouth every 4 (four) hours as needed for pain for up to 5 doses 12/27/2023 02/14/2024 guaiFENesin (ROBITUSSIN) syrup 100 mg/5 mL Take 10 mL (200 mg total) by mouth 4 (four) times a day as needed for cough 12/10/2023 02/14/2024 Xarelto 15 mg tabletIndications:VTE Prophylaxis,Venous Thrombosis Take 1 tablet (15 mg total) by mouth 2 (two) times a day For 21 days Stop Taking at Discharge 02/07/2024 02/27/2024 documented as of this encounter Historical Medications * This list may reflect changes made after this encounter. Xarelto 20 mg tabletIndication s:DVT Take 1 tablet (20 mg total) by mouth daily with breakfast 02/07/2024 Xarelto 15 mg tabletIndication s:VTE Prophylaxis,Veno us Thrombosis Take 1 tablet (15 mg total) by mouth 2 (two) times a day For 21 days 02/07/2024 added in this encounter Active and Recently Administered Medications Times are shown in CDT. Scheduled Medication Order 02/25/2024 02/26/2024 02/27/2024 acetaminophen (TYLENOL) tablet 1,000 mg (COMPLETED) 1,000 mg, oral, Once, On Sun02/27/24 at 1000, For 1 dose, Pre-Op, Indications: Pre-Emptive Analgesia 1005 (Given - Provid er: Melvina Panda RN) ceFAZolin (ANCEF) 2,000 mg/20 mL in sterile water (premix) 2,000 mg 2,000 mg, intravenous, at 400 mL/hr, Administer over 3 Minutes, Once, On Sun02/27/24 at 1000, For 1 dose, Pre-Op, Administer within 60 minutes of incision., Indications: Prophylaxis, Surgical 1000 (Due) famotidine (PEPCID) injection 20 mg (COMPLETED) 20 mg, intravenous, Administer over 2 Minutes, Once, On Sun02/27/24 at 1000, For 1 dose, Pre-Op, Indications: Reflux 1004 (Given - Provid er: Melvina Panda RN) Continuous Medication Order 02/25/2024 02/26/2024 02/27/2024 Lactated Ringer's (LR) infusion 30 mL/hr, intravenous, Continuous, Starting on Sun02/27/24 at 1000, Pre-Op 1000 (Due)1009 (New Bag - Provider: Melvina Panda RN)1805 (Due: Stopped) Lactated Ringer's (LR) infusion 125 mL/hr, intravenous, Continuous, Starting on Sun02/27/24 at 1230, Phase I 1230 (Due) Lactated Ringer's (LR) infusion 30 mL/hr, intravenous, Continuous, Starting on Sun02/27/24 at 1000, Pre-Op 1000 (Due) PRN Medication Order 02/25/2024 02/26/2024 02/27/2024 Carrier Fluids for Secondary Infusion - 0.9% Sodium Chloride 30 mL, intravenous, As needed, For priming tubing and/or flushing, Starting on Sun02/27/24 at 0920, Pre-Op, 0-250 ml/hr to flush line after IV infusions when no maintenance IV ordered. Infuse 30mL at the same rate as the secondary infusion. Run as primary IV, not intended for KVO. fentaNYL (SUBLIMAZE) preservative free injection 50 mcg 50 mcg, intravenous, Once as needed, breakthrough pain, Starting on Sun02/27/24 at 1152, For 1 dose, Phase I, Administer for uncontrolled or increasing pain while in PACU only. fentaNYL (SUBLIMAZE) preservative free injection 50 mcg 50 mcg, intravenous, Every 10 min PRN, 2nd line for pain, Starting on Sun02/27/24 at 1152, Phase I, May administer 10 mintes after 2nd dose of 1st line analgesic agent for uncontrolled or increasing pain. Revert to 1st line dose if POSS of 3. Notify Anesthesiologist if total PACU dose reaches 100 mcg and pain score 5/10 or more., Indications: Pain iothalamate meglumine (CONRAY) 60 % injection (CANCELED) As needed, Starting on Sun02/27/24 at 1125, Intra-Op 1125 (Given - Provid er: Temo Mcintosh MD) metoclopramide (REGLAN) 5 mg/mL injection 10 mg 10 mg, intravenous, Once as needed, nausea, vomiting, Starting on Sun02/27/24 at 1152, For 1 dose, Phase I, If nausea/vomiting not relieved by ondansetron within 30 minutes or if ondansetron has been given within the last 6 hours. naloxone (NARCAN) 0.4 mg/mL injection 0.04-0.4 mg 0.04-0.4 mg, intravenous, Once as needed, other, excessive sedation/respiratory depression, Starting on Sun02/27/24 at 1152, For 1 dose, Phase I, Dilute 0.4 [...] Once as needed, nausea, vomiting, Starting on Sun02/27/24 at 1152, For 1 dose, Phase I, Proceed to metoclopramide if ondansetron has been given within the last 6 hours. sodium chloride 0.9% flush 0.5-20 mL 0.5-20 mL, intra-catheter, As needed, line care, Starting on Sun02/27/24 at 0920, Pre-Op, Flush volume based on line type and size. Flush before and after each use. sodium chloride 0.9% irrigation (CANCELED) As needed, Starting on Sun02/27/24 at 1022, Intra-Op 1022 (Given - Provid er: Temo Mcintosh MD) documented in this encounter Orders Medications Ordered That Armando ht Not Have Been Administered Count Last Ordered Date First Ordered Date Carrier Fluids for Secondary Infusion - 0.9% Sodium Chloride 1 02/27/2024 ceFAZolin (ANCEF) 2,000 mg/2 0 mL in sterile water (premix) 2,000 mg 1 02/27/2024 fentaNYL (SUBLIMAZE) preserv ative free injection 50 mcg 2 02/27/2024 iothalamate meglumine (CONRA Y) 60 % injection 1 02/27/2024 Lactated Ringer's (LR) infusion 2 metoclopramide (REGLAN) 5 mg /mL injection 10 mg 1 02/27/2024 naloxone (NARCAN) 0.4 mg/mL injection 0.04-0.4 mg 1 02/27/2024 ondansetron (ZOFRAN) injection 4 mg 1 02/26 sodium chloride 0.9% flush 0.5-20 mL 1 02/04 sodium chloride 0.9% irrigation 1 4 Discharge Count Last Ordered Date First Orde red Date DISCHARGE PATIENT 1 02/27/2024 documented in this encounter Care Teams Gluing Machine Operator Automatic Relationship Specialty Start Date End Date Rl Medina DO [address] [place] [address] PCP - General 08/09/17 05/25/24 documented as of this encounter
--- OUTSIDE RECORDS SUMMARY | 2024-11-05 19:19 | XMS_ITS | Encounter Summary ---
Author Organization [facility] Address [address] [place] [address] Phone Care Team Providers Care Mechanical Engineer Name Role Phone Rl Medina DO Primary Care Provider Encounter Details Date Type Department Care Team (Late st Contact Info) Description 01/31/2024 Telephone [facility] Surgery [address] [place] [address] Luciana Chaves CMA Social History Tobacco Use Types Packs/Day Years Used Date Smoking Tobacco: Former Cigarettes 1 09 05 969 - 1979 Passive Smoke Exposure: Never Smokeless Tobacco: Never Alcohol Use Standard Drinks/Week Comments Yes 14 (1 standard drink = 0.6 oz pu re alcohol) social [facility] Utilities Answer Date Recorded In the past 12 months has [employer], gas, oil, or water [employer] threatened to shut off services in your [...] often do you attend chur ch or judaism services? 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 documented in this encounter Plan of Treatment Not on file documented as of this encounter Visit Diagnoses Not on filedocumented in this encounter Care Teams Mechanical Engineer Relationship Specialty Start Date End Date Rl Medina DO [address] [place] [address] PCP - General 08/09/17 05/25/24 documented as of this encounter
--- OUTSIDE RECORDS SUMMARY | 2024-11-05 19:19 | XMS_ITS | Encounter Summary ---
Author Organization [facility] Healthcare Address [address] [place] [address] Care Team Providers Care Yellow Pages Space Salesperson Name Role Phone Rl Medina DO Primary Care Provider Reason for Visit * Auth/Cert (Routine) Specialty Diagnoses / Procedures Referred By Contac t Referred To Contact Diagnoses Kidney stone Kidney stone [N20.0] Procedures [facility] CYSTOURETHROSCOPY CYSTOSCOPY PYELOGRAM - RETROGRADE URETEROSCOPY LITHOTRIPSY - LASER EXCHANGE STENT - URETERAL Referral ID Status Reason Start Date Expiration Date Visits Re quested Visits Authorized [id number] 1 1 Encounter Details Date Type Department Care Team (Late st Contact Info) Description 12/25/2023 7:30 AM SPARK PLUG TESTER - 12/25/2023 9:30 AM SPARK PLUG TESTER Surgery [facility] Operating Room [address] [place] [address] Temo Mcintosh MD [address] [place] [address] CYSTOSCOPY Surgery Details Date/Time Status Location OR Service Patient Class Case Cl ass Case Type Trauma Case? 12/25/2023 7:[address] [facility] OR POD 1 325 Urology Outpatient Elective Panel 1 Procedure LRB Anes Op Region Wound Class Comments CYSTOSCOPY N/A General Class II - Guido an Contaminated PYELOGRAM - RETROGRADE Left Choice Perineum Class I - Clean URETEROSCOPY Stone extraction Left Monitor Anesthesia Care Perineum Class I - Clean Surgeon Surgeon Role Service Panel Temo Mcintosh MD Primary Urology 1 Dulce Siegel MD Resident - Assisting Urolo gy 1 documented in this encounter Social History Tobacco Use Types Packs/Day Years Used Date Smoking Tobacco: Former Cigarettes 1 11 [id number] Passive Smoke Exposure: Never Smokeless Tobacco: Never Alcohol Use Standard Drinks/Week Comments Yes 14 (1 standard drink = 0.6 oz pu re alcohol) social [facility] Utilities Answer Date Recorded In the past 12 months has e electric, gas, oil, or water company threatened to shut off services in your home? No 11/30/2023 Social Connection and Isolat ion Panel [NHANES] Answer Date Recorded In a typical week, how many times do you talk on the phone with family, friends, or neighbors? More than three times a week 11/30/2023 How often do you get togethe r with friends or relatives? More than three times a week 11/30/2023 How often do you attend chur ch or gnosticism services? Never 11/30/2023 Do you belong to any clubs o r organizations such as restorationism groups, unions, fraternal or athletic groups, or school groups? No 11/30/2023 How often do you attend meet ings of the clubs or organizations you belong to? Never 11/30/2023 Are you , , di vorced, , never , or living with a partner? 11/30/2023 AUDIT-C Answer Date Recorded Q1: How often [...] care, and heating? Not hard at all 11/30/2023 PHQ-2 Answer Date Recorded PHQ-2 Total Score 0 11/30/2023 Hunger Vital Sign Answer Date Recorded Within the past 12 months, y ou worried that your food would run out before you got the money to buy more. Never true 11/30/19 24 Within the past 12 months, t he food you bought just didn't last and you didn't have money to get more. Never true 11/30/2023 PRAPARE - Transportation Answer Date Re corded In the past 12 months, has l ack of transportation kept you from medical appointments or from getting medications? No 11/06 In the past 12 months, has l ack of transportation kept you from meetings, work, or from getting things needed for daily living? No 11/30/2023 Housing Stability Vital Sign Answer Shalom e Recorded In the last 12 months, was t here a time when you were not able to pay the mortgage or rent on time? No 11/30/2023 In the last 12 months, how many places have you lived? 1 11/30/2023 In the last 12 months, was t here a time when you did not have a steady place to sleep or slept in a skilled nursing (including now)? No 11/30/2023 Personal Safety Answer Date Recorded Have you ever been in or are you currently in a harmful physical or emotional relationship or is someone making you feel afraid or unsafe? 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 [employer] Not on file Not on file Not on file documented as of this encounter Last Filed Vital Signs Vital Sign Reading Time Taken Comments Blood Pressure 117/72 12/25/2023 9:30 AM SPARK PLUG TESTER Pulse 56 12/25/2023 9:30 AM SPARK PLUG TESTER Temperature 36 ??C (96.8 ??F) 12/25/2023 9:30 AM SPARK PLUG TESTER Respiratory Rate 16 12/25/2023 9:30 AM SPARK PLUG TESTER Oxygen Saturation 99% 12/25/2023 9:30 AM SPARK PLUG TESTER Inhaled Oxygen Concentration - - Weight 90.7 kg (200 lb) 12/11/2023 5:08 PM SPARK PLUG TESTER Height 172.7 cm (5' 8 ) 12/11/2023 5:08 PM SPARK PLUG TESTER Body Mass Index 30.41 12/24/2023 1:58 PM SPARK PLUG TESTER documented in this encounter Discharge Summaries * Angela Paz MD - 12/27/2023 11:39 AM CST Inpatient Discharge Summary BRIEF OVERVIEW Admitting Provider: Temo Mcintosh MD Discharge Provider: Temo Mcintosh MD Primary Care Physician at Discharge: Rl MedinaDO [phone] Admission Date: 12/25/2023 Discharge Date: 12/27/2023 Admission Location: [facility] Problems/Diagnoses: Principal Problem: Kidney stone Active Problems: [...] Nephrostomy Left Result Date: 12/26/2023 Successful left 10-Indonesian percutaneous nephrostomy tube placement. PLAN: Patient needs [...] SPIN CAM 6A OS 02/05/2024 11:00 AM [facility] IR 362 [facility] IR [facility] Main IMG Cosigned by Temo Mcintosh MD at 12/27/2023 12:38 PM SPARK PLUG TESTER K PLUG TESTER K PLUG TESTER documented in this encounter Discharge Instructions * Discharge Instructions* Angela Paz MD - 12/25/2023 7:03 AM SPARK PLUG TESTER Diagnosis:Left ureteral stricture Procedure:Left nephrostomy tube placement [...] contact an Interventional Radiologist at [facility] call [phone] Sunday through Sunday from 7:30am-4:30pm. At all other times call [phone] and ask that the Interventional Radiologist be paged. To contact an Interventional Radiologist at [facility] call [phone] Sunday through Sunday from 7:30am-3:30pm. Special instructions: [...] your condition worsens. Temo Mcintosh MD Urology [employer] [facility], [address] [place] [address] For appointments: [phone] My car rental sales assistant - Luciana [phone] For after hours emergencies: [phone] K PLUG TESTER K PLUG TESTER K PLUG TESTER K PLUG TESTER documented in this encounter Medications at Time [...] mouth 2 (two) times a day 12/11/2023 gabapentin (NEURONTIN) 600 mg tabletIndications :Pain Take 1 tablet (600 mg total) by mouth 3 (three) times a day 12/10/2023 miconazole 2 % powder Apply topically 2 (two) times a day 12/10/2023 Mounjaro 10 mg/0.5 mL pen injector 12/27/[address] (PROTONIX) 40 mg EC tabletIndications :Treatment of Non-Bleeding Gastric Disorder Take 1 tablet (40 mg total) by mouth daily 12/11/2023 senna-docusate (PERICOLACE) 8.6-50 mg Take 1 tablet [...] CST 12/25/23 1401 Discharge Summary Discharge Disposition shelter facility (short term care) Specify Facility [facility] Contact Number Report: [phone] Discharge Records Chart Copied Discharge Additional Assistance Does the patient need discharge transport arranged? Yes Has discharge transport been arranged? Yes Details of Transportation Khadra Goff [phone] trip #[phone] D/C Transport Anticipated Date 12/27/23 D/C Transport [...] at this time. Patient has been acceptedto [facility]. CM spoke with the patient/family, admissions, medical [...] Patient/family informed patient may require ambulance transport. retail store manager informed patient/family that even if the patient's insurance benefit includes ambulance transport, it may not cover the full cost of the transportation. The patient may be responsible for any rld-no-tazipe cost, includingmileage beyond the nearest appropriate facility. Patient/family voiced understanding. K PLUG TESTER * Estella Maxwell RN - 12/27/2023 8:24 AM CST 12/27/23 0824 Communications Important Message from Medicare notice given to patient? Yes IM letter completed with patient/architectural representative at bedside. Patient/architectural representative were informed ofthe planned discharge date, the date the beneficiary's financial liability begins, the beneficiary's appeal rights, and how and when to initiate an appeal. Patient/architectural representative were provided a copy of the IM letter and IM letter was placed in unit???s designated medical record bin to be uploaded into the patient???s chart. K PLUG TESTER * Tavo Vance MD - 12/27/2023 6:30 AM CST Images from the original note were not included. 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 Status post left 10Fr [place] nephrostomy tube on 12/26/2023. Interval History: No acute events. Not endorsing pain. Exam: General: alert & oriented X 3, NAD Skin: warm and well perfused C/V: normal rate and rhythm Pulm: normal respirations, symmetric chest rise, nonlabored breathing Abdomen: soft, NT/ND, left flank 10 Fr [place] nephrostomy tube draining pink/blood-tinged urine. Shook draining [...] 1859 12/25/23 1900 - 12/26/23 0659 12/26/23 0700 - 12/26/23 1501 Requested LDAs do not have output data documented. Assessment and Plan: 73-year-old man with a history of DVT (with IVC filter), left ureteral stones status post staged stone extraction found to have a mid left ureteral stricture. Status post left 10Fr [place] nephrostomy tube on 12/26/2023. - Please continue to document output - IR follow-up scheduled for 02/05/2024 for possible internalization or nephrostomy tube change Plan discussed with IR attending, Dr. Crum. Tavo Vance MD PGY-2, Interventional Radiology Service K PLUG TESTER K PLUG TESTER * Dolores Gonzalez, SLUDGE FILTRATION ATTENDANT - 12/26/2023 2:02 PM CST Images from [...] last 2 completed shifts: In: 3835.6 [P.O.:1800; I.V.:2035.6] Out: 4175 [Urine:4175] I/O this shift: In: [...] therapeutic SQ lovenox (held for procedure) [facility] Urology 12/26/2023 Cosigned by Temo Mcintosh MD at 12/26/2023 5:10 PM SPARK PLUG TESTER K PLUG TESTER K PLUG TESTER Associated attestation - Temo Mcintosh MD - 12/26/2023 5:10 PM SPARK PLUG TESTER I have seen and examined the patient on 12/26/23. I agree with the findings and plan of care as documented in the resident's/fellow's note. -- Will plan on delayed internalization to an indwelling ureteral stent per IR recommendations (estimated in 4-6 weeks) -- My clinical suspicion is that the heavily impacted ureteral stone resulted in a high-grade ureteral stricture. shelter management will be either scheduled stent exchanges [...] w/c Prior Function Prior Function Level of [place]: Needs assistance with functional transfers, Independent with wheelchair Lives With: Spouse Receives Help From: Spouse/Significant other (parts cataloger assist available) Fall within the last 6 [...] from sit to supine 12/26/23 01/02/24 -- K PLUG TESTER * Galina Stoddard, OT - 12/26/2023 10:16 [...] independence in ADLs. Pt in agreement with [facility] rec at this time. Treatment/Interventions during current [...] base Prior Function Prior Function Level of [place]: Needs assistance with ADLs, Needs assistance with homemaking Lives With: Spouse Receives Help From: Spouse/Significant other (parts cataloger assist) ADL Assistance: Independent Instrumental ADL (IADL) [...] required assist to lift BLE to utilize camp advisor to doff sock) LE Dressing: Equipment Utilized: Fast Food Restaurant Manager Toilet Transfers Toilet Transfers: Not tested Pain [...] name and address after me: Marcial Reddy [address] [place] [address] Without looking at the clock, tell me [...] independence in ADLs. Pt in agreement with [facility] rec at this time. OT Goals Multi-Disciplinary [...] not assigned to this patient, please call [phone]. K PLUG TESTER * Nichole Mitchell MD - 12/25/2023 10:59 [...] number for questions about this patient's care. K PLUG TESTER documented in this encounter H&P Notes * [...] Temo Mcintosh MD at 12/25/2023 7:00 AM SPARK PLUG TESTER K PLUG TESTER K PLUG TESTER Source Note - Sethlisandro Tamia Lana, SLUDGE FILTRATION ATTENDANT - 12/19/2023 8:16 AM SPARK PLUG TESTER Images from the original note were not included. Center for Preoperative Assessment and Planning Preoperative Evaluation Record Evaluation type/location: TPAP from [facility] Planned procedure site: [facility] PVT OR (Pod 1) Date: 12/19/23 NOTE: [...] + Seizures (x1 episode 10/23 post-op- on kera) Pertinent negatives: neuromuscular disease; CVA/stroke and TIA [...] DVT/PE episodes: 1. Pertinent negatives: CAD ; OH ; CABG ; atrial fibrillation; pacemaker/ICD; negative for CHF; drug-eluting stent(s) and bare metal stent(s) Respiratory + Pulmonary hypertension (TTE 12/20/23: Raven PASP, RV mildly reduced systolic function) RV function: mild systolic dysfunction. Pertinent negatives: COPD; sleep apnea (YKLE); no O2 use outside the hospital; non-smoker [...] were provided via telephone and faxed to [facility]. Patient verbalized understanding of DOS instruction. Case [...] of new anasarca. Spoke with MD at [facility]- will place order. Surgeon's office notified pt will need repeat TTE. -->Recommend holding Lovenox on morning of surgery only and resuming ANSELMO postoperatively. Instructed provided to [facility] staff. Interse message sent to surgeon's office to make [...] Diagnosis Date Noted DVT (deep venous thrombosis) (CMS/HCC) (HCC) 11/29/2023 [...] 5 mg tablet -- 12/10/23 -- Jimenez eHnao MD Take 1 tablet (5 mg total) [...] by PERLA Conv) Anesthesia problems Neg Hx There were [...] 0.76 mg/dL (L) Joni index score: 55 K PLUG TESTER K PLUG TESTER documented in this encounter Nursing Notes * Kishan Hanson RN - 12/27/2023 12:58 PM CST Pt is being discharged today, transferring to a SNF. NARENDRA Atkinson at [facility] was given reportregardign this pt. Ambulance pickup at 2PM. VSS, AOx4, tolerates diet well. Pt will be given CHG bath prior leaving. Pt going to SNF with L nephrostomy tube. Shook was removed as per order. K PLUG TESTER documented in this encounter Miscellaneous Notes * [...] Clinical Indicators: 73 year old male from [place] w/kidney stone s/p stent removal and left percutaneous nephrostomy tubeon 12/26/23. 12/20 CPAP: Functional capacity: <4 METs, ambulates with assistance only and cannot ambulate Patient Active Problem List: Paralysis of both lower limbs (11/07/2023) 12/25 Case management: ??? s/p decompression surgery 10/2023 c/b cardiac arrest post-op and hematomas/p evacuation (11/07/23) with resulting LE paralysis ??? prefers discharge to [facility] ???Functional status: bedbound Additional Information: Patient typically [...] become part of the patient's medical record. K PLUG TESTER * ACP (Advance Care Planning) - Nora Last LCSW - 12/27/2023 11:03 AM SPARK PLUG TESTER Advance Care Planning Advance Care Planning Conversation The patient and/or family consented to a voluntary Advance Care Planning conversation. Individuals present for the conversation: patient Advance Directive: Yes On file: Yes Power of Embroidery Specialist Name: Val Evans Relationship: Spouse Summary of [...] ongoing clinical care only. Nora Last LCSW K PLUG TESTER * Initial Assessments - Nora Last LCSW - 12/27/2023 10:59 AM SPARK PLUG TESTER Social Work Assessment Clinical Dx: Nephrolithiasis Past Medical History: Date of last inpatient admission: Previous admit date: 11/29/2023 Number of inpatient admissions in past year: 4 Reason for Current Hospitalization (Pt/Caregiver Stated): Surgery (12/27/231051) Patient Information: Information Obtained From: Patient Marital Status: Does Pt have Legal Guardian, Surrogate Decision Maker or Healthcare Agent? : Yes-DPOA DPOA Name/Phone: daniela Hernandez, Employment Status: Retired Payor Source: Medicare advantage Race: White/ Ethnicity: Non- Sexual Orientation : BIBI Gender Identity: Male Service : None (12/27/231051) Current Situation: Current Situation Living Arrangements: Spouse/significant other Type of Residence: Private residence Income: Halfway/Pension Income Comment: Patient is retired Financial assistance: Unknown Education Level : Advanced College Degree How do you Pay for Medication: Insurance Current Transportation: Own vehicle, Family/friends What do you do with your Free Time: Travel (12/27/231051) Legal History: Legal History Legal Information : No legal issues (12/27/231051) Support Systems and Spirituality: Support Systems and Spirituality Support System: Spouse, Children Spouse Name/Contact Information: Val Evans spouse, Children Name/Contact Information: Marcial Evans, son, Participation from Patient's Support System: Patient's family appear involved and supportive and concerned for the patient's welfare Support Contact Name/Number: See above Family Perspective: BIBI Do you have a Restorationist Preference or Affiliation?: Yes Preference/Affiliation : Atheist Are there any Restorationist Practices that are important to maintain while [...] Poor physical health Current Stressors: Chronic illness (12/27/23 1052) SDOH Transportation Needs: No Transportation Needs (12/27/2023) [...] More than three times a week Attends Restorationist Services: Never Active Member of Clubs or [...] 1% Active ulcer inpatient medication order present [facility] Lumbar Disc Herniation s/p decompression surgery 10/2023 c/b cardiac arrest post-op and hematoma s/p evacuation (11/07/23) with resulting LE paralysis, DVT/PE s/p IVC filter (not on A/C currently), HTN. The patient is a 73 year-old male who was readmitted to [facility] for scheduled cystoscopy, left ureteroscopy, left [...] or food insecurity. Patient has the insurance [facility] Medicare. Patient declined to be provided with any community resources at this time. No further Social Work interventions identified. Social Work will sign off. Nora Last LCSW K PLUG TESTER * Plan of Care - Bharti Viramontes [...] and nephrostomy care completed, frequent turns completed K PLUG TESTER * Plan of Care - Kishan Hanson [...] VSS, AOx4, transferred to a specialty bed. K PLUG TESTER * Plan of Care - Estella Maxwell RN - 12/26/2023 3:00 PM CST called and spoke with Torey from [facility] ([phone]). Patient is OK for discharge tomorrow. Report: [phone] K PLUG TESTER * Post-Procedure Note - Dennis Albarado MD - 12/26/2023 1:05 PM SPARK PLUG TESTER Radiology Brief Post Procedure Note Attending: Dr. Romero Shoe Packer: Dr. Albarado Sedation/Anesthesia: Min Sedation Pre-Op/Pre-Procedure Diagnosis: [...] None Condition: Stable Full report to follow. K PLUG TESTER * Plan of Care - Estella Maxwell RN - 12/26/2023 9:43 AM CST Per Medical Chart/Rounds/IDR: Patient admitted with stone, plan for left nephU tube placement in . He is not medically ready for discharge to SNF. ADD: 12/27 Plan & referrals made/in place: CM left voicemail for Torey with [facility] ([phone]). [facility] Torey [phone] Support following discharge: facility staff; spouse Val Evans [phone]; son Marcial Evans [phone] Transportation: ambulance F/U Appointments: per medical team Patient's Identified Problem/Goal Problem: Ensure acute medical needs are met and that patient has a safe discharge plan. Goal: Secure a discharge plan that patient/family are agreeable with and ensure patient has continuum of care. Patient and/or family are agreeable with plan. retail store manager will continue to follow and assist with discharge planning as needed. If any further discharge needs arise, please contact the covering case resolution specialist. K PLUG TESTER * Pre-Procedure Note - Cici Garces MD - 12/26/2023 5:56 AM SPARK PLUG TESTER PRE-SEDATION ASSESSMENT/H&P Patient is a 73 y.o. [...] renal subcapsular collection Lovenox on hold from 2/ AM. Cr 0.82, PLT 224, INR pending PMH: Patient Active Problem List Diagnosis Date Noted Nephrolithiasis 12/25/2023 DVT (deep venous thrombosis) ([facility]) ([facility]) 11/29/2023 Anemia 11/29/2023 Paraspinal hematoma 11/29/2023 Hyponatremia 11/29/2023 Elevated transaminase level 11/29/2023 Lower extremity edema 11/29/2023 Scrotal swelling 11/29/2023 Seizure ([facility]) 11/29/2023 Prediabetes 11/29/2023 Kidney stone 11/09/2023 Paralysis of both lower limbs ([facility]) ([facility]) 11/07/2023 Pulmonary embolism ([facility]) 10/26/2023 S/P spinal fusion 10/23/2023 Cardiac arrest ([facility]) 10/23/2023 Left perinephric collection, 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 10/15/2023 Ureteral colic 10/13/2023 UTI (urinary tract infection) 10/13/2023 Hydronephrosis with urinary obstruction due to renal calculus 10/12/2023 Lumbar radiculopathy 10/08/2023 Gross hematuria 10/18/2022 Bladder neck obstruction 10/17/2022 Lesion of urinary bladder 10/17/2022 Prostate cancer ([facility]) 10/17/2022 HTN (hypertension) 10/10/2021 Risk factors for obstructive sleep apnea 10/10/2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 Presence of right artificial knee [...] BID, Dulce Siegel MD, 400 mg at 12/25/232134 bisacodyL (DULCOLAX) suppository 10 mg, 10 mg, [...] TID, Dulce Siegel MD, 600 mg at 12/25/23 213 Lactated Ringer's (LR) infusion, 75 mL/hr, intravenous, Continuous, Dulce Siegel MD, Last Rate: 75 mL/hr at 12/25/23 2338, 75 mL/hr at 12/25/23 2338 levETIRAcetam (KEPPRA) tablet 1,000 mg, 1,000 mg, oral, BID, Dulce Siegel MD, 1,000 mg at 12/25/[address] (PROTONIX) extended release tablet 40 mg, 40 mg, oral, QAM, Dulce Siegel MD, 40 mg at 12/25/23 114 potassium chloride ER (KLOR-CON) extended release tablet [...] Dulce Siegel MD, 1 tablet at 12/25/23 2135 simethicone (MYLICON) chewable tablet 80 mg, 80 [...] been discussed with the patient and/or their architectural representative. Patient or architectural representative was informed that the provider getting consent may not be the same provider performing procedure. All questions answered and agree to proceed. Cici Knight MD 12/26/2023 11:32 AM K PLUG TESTER K PLUG TESTER * Plan of Care - Bharti Viramontes [...] bed ordered since patient is bed bound K PLUG TESTER * Plan of Care - Estella Maxwell RN - 12/25/2023 3:05 PM CST LUIS received call from Jennifer with [facility]. Patient was anticipated to discharge from [facility] to [facility] tomorrow. There was a peer to peer today that was approved for SNF. [facility] provided contact information for facility. [facility] Torey [phone] ECIN referral placed. LUIS called and spoke with Torey who is going to make sure that insurance auth is valid for patient to discharge from hospital vs discharge from rehab. K PLUG TESTER * Initial Assessments - Estella Maxwell RN - 12/25/2023 2:04 PM CST LUIS Initial Assessment Interview Note Information Obtained From: Patient (at bedside) (12/25/23 1401) Admission Source: [facility] Impression: 73 year old male admitted following cystosopy, retrograde pyelogram, ureteroscopy for stone extraction. PMH Lumbar Disc Herniation s/p decompression surgery 10/2023 c/b cardiac arrest post-op and hematoma s/p evacuation (11/07/23) with resulting LE paralysis, DVT/PE s/p IVC filter (not on A/C currently), HTN. Plan Includes: Patient would prefer to discharge to [facility]. He states they submitted an appeal to insurance yesterday. If insurance denies, he would prefer to discharge to [place]. He will need ambulance transportation at discharge. CM called and left voicemail for Jennifer with [facility] to follow up on appeal/rehab status. ECIN referral placed to [facility]. Primary Source of Transportation: Does the patient need discharge transport arranged?: Yes Details of Transportation: Ambulance (12/25/231400) Health Insurance Coverage: [facility] Medicare Prescription Coverage: yes Pharmacy: verified [facility] - [place], [place] - [address] [address] [address] [facility] [address] Primary Care Provider: Rl Barnett DO Prior to Admission: Functional Status: Bedbound Primary Caregiver: Facility staff Support System: Spouse/Significant Other, Children (spouse Val Evans [phone]; son Marcial Evans [phone]) Home Care Services: No Outpatient Services: No [...] Collaboration with patient, MD, direct care nurse, Grooving Lathe Tender, and other members of the health care team to assure needed interventions completed. 2. Return patient to optimal level of self-care post discharge. 3. Certified Medication Aide will follow for Discharge Planning - interventions [...] with the aftercare plan. Estella Maxwell RN K PLUG TESTER * Plan of Care - Katharine Montgomery [...] from PACU. Monitor I&Os. Pain controlled. VSS. K PLUG TESTER * Op Note - Temo Mcintosh MD [...] the case by atraumatically introducing a 22 Indonesian rigid cystoscope into the urethra. Inthe proximal [...] the entire procedure (including opening and closing). K PLUG TESTER * Perioperative Nursing Note - Crystal Sprague RN - 12/12/2023 3:27 PM [facility] Perioperative Nursing Note Telephone Preoperative Evaluation ([facility]) - TELEPHONE ONLY, NO PHYSICAL EXAM [...] mouth nightly 2 tablets) Implants Bone Cement [employer] 6197-9-010 Simplex P Full Dose Radiopaque Preblend Cement Bone Tobramycin - S0- [id number] - Implanted (Right) Knee Inventory item: [employer] Simplex P Full Dose Radiopaque Preblend Cement Bone [id number] Model/Cat number: [id number] Serial number: 0 Retail Cashier: [employer] Lot number: [id number] Device identifier: [id number] Device identifier type: GS1 As of 09/30/2019 Status: Implanted Other - see comments [employer] [id number] Kandace II 15mm Constrain Knee 5-6 Insert Articular Uhmwpe- S0 - [id number] - Implanted (Right) Knee Inventory item: [employer] Kandace Ii 15mm Constrain Knee 5-6 Insert ArticularUhmwpe [id number] Model/Cat number: [id number] Serial number: 0 Retail Cashier: [employer] Lot number: [id number] As of 09/30/2019 Status: Implanted [employer] [id number] Legion 10mm Screw Knee 6 Wedge Femoral - S0 - [id number] -Implanted (Right) Knee Inventory item: [employer]THO Legion 10mm Screw Knee 6 Wedge Femoral [id number] Model/Cat number: [id number] Serial number: 0 Retail Cashier: [employer] Device identifier: [id number] Device identifier type: [facility] As of 09/30/2019 Status: Implanted [employer] [id number] Legion Constrain Knee Right 6 Component Femoral Oxinium - S0 - [id number] - Implanted (Right) Knee Inventory item: [employer]ORTHO Legion Constrain Knee Right 6 Component Femoral Oxinium [id number] Model/Cat number: [id number] Serial number: 0 Retail Cashier: [employer] Lot number: [id number] As of 09/30/2019 Status: Implanted [employer] [id number] Legion 5mm Alcon Step Knee Right Medial Left Lateral 5-6 Wedge - S0 - [id number] - Implanted (Right) Knee Inventory item: [employer] Legion 5mm Alcon Step Knee Right Medial Left Lateral5-6 Wedge [id number] Model/Cat number: [id number] Serial number: 0 Retail Cashier: [employer] Device identifier: [id number] Device identifier type: [facility] As of 09/30/2019 Status: Implanted [employer] [id number] Legion 15mm 160mm Press Fit Knee Stem Femoral - S0 - [id number] - Implanted (Right) Knee Inventory item: [employer] Legion 15mm 160mm Press Fit Knee Stem Femoral [id number] Model/Cat number: [id number] Serial number: 0 Retail Cashier: [employer] Lot number: [id number] As of 09/30/2019 Status: Implanted [employer] [id number] Legion 10mm Screw Knee 6 Wedge Femoral - S0 - [id number] -Implanted (Right) Knee Inventory item: [employer] Legion 10mm Screw Knee 6 Wedge Femoral [id number] Model/Cat number: [id number] Serial number: 0 Retail Cashier: [employer] Lot number: [id number] As of 09/30/2019 Status: Implanted [employer] [id number] Legion Revision Knee Right 5 Baseplate Tibial - S0 - [id number] - Implanted (Right) Knee Inventory item: [employer] Legion Revision Knee Right 5 Baseplate Tibial [id number] Model/Cat number: [id number] Serial number: 0 Retail Cashier: [employer] Lot number: [id number] Device identifier: [id number] Device identifier type: GS1 As of 09/30/2019 Status: Implanted [employer] [id number] Legion 15mm 160mm Press Fit Knee Stem Femoral - S0 - [id number] - Implanted (Right) Knee Inventory item: [employer]ORTHO Legion 15mm 160mm Press Fit Knee Stem Femoral [id number] Model/Cat number: [id number] Serial number: 0 Retail Cashier: [employer] Lot number: [id number] Device identifier: [id number] Device identifier type: 1 As of 09/30/2019 Status: Implanted [employer] 5517-F-501 Triathlon Cruciate Retain Bead Knee Left 5 Component Femoral Pa - Sn/A - [id number] - Implanted (Left) Knee Inventory item: [employer] Triathlon Cruciate Retain Bead Knee Left 5 Component Femoral Pa 5517-F-501 Model/Cat number: [id number] Serial number: N/A Retail Cashier: [employer] Lot number: [id number] Device identifier: [id number] Device identifier type: GS1 As of 10/17/2021 Status: Implanted [employer] 5536-B-600 Triathlon Knee 6 Baseplate Tibial Tritanium - Sn/A - [id number] - Implanted (Left) Knee Inventory item: [employer] Triathlon Knee 6 Baseplate Tibial Tritanium 5536-B-600 Model/Cat number: [id number] Serial number: N/A Retail Cashier: [employer] Lot number: [id number] Device identifier: [id number] Device identifier type: GS1 As of 10/17/2021 Status: Implanted [employer] 3097-R-897-E Insert Tibial Triathlon 6 H10mm Knee Bearing Condylar Stabilize Sterile - Sn/A - [id number] - Implanted (Left) Knee Inventory item: [employer] Insert Tibial Triathlon 6 H10mm Knee Bearing Condylar Stabilize Sterile 9259-T-898-E Model/Cat number: [id number] Serial number: N/A Retail Cashier: [employer] Lot number: [id number] Device identifier: [id number] Device identifier type: GS1 As of 10/17/2021 Status: Implanted Stent [employer] Universa 6fr 28cm Firm Positioner Monofilament Tether Stent [id number] - [id number] -Implanted (Left) Ureter Inventory item: [employer] UNIVERSA 6FR 28CM FIRM POSITIONER MONOFILAMENT TETHER STENT [id number]/Cat number: [id number] Retail Cashier: [facility] Lot number: [id number] Size: 6x28 Device identifier: [id number] Device identifier type: GS1 As of 10/18/2023 Status: Implanted Type Not Specified [employer] 6197-9-010 Simplex P Full Dose Radiopaque Preblend Cement Bone Tobramycin - [id number] - Implanted (Right) Knee Inventory item: [employer] Simplex P Full Dose Radiopaque Preblend Cement Bone Btqjxhtrox6428-8-884 Model/Cat number: [id number] Retail Cashier: [employer] Device identifier: [id number] Device identifier type: GS1 As of 09/30/2019 Status: Implanted [employer]ource Crushed Chip Frozen Graft 30ml Bone Cancellous [id number] - [id number] - Implanted Spine Lumbar Inventory item: [employer] Crushed Chip Frozen Graft 30ml Bone Cancellous [id number] Model/Cat number: [id number] Retail Cashier: [employer] Lot number: [id number] As of 10/23/2023 Status: Implanted [employer] Allograft Bone Putty 2.5cc 700-025 - [id number] - Implanted Spine Lumbar Inventory item: [employer] Allograft Bone Putty 2.5CC 700-025 Model/Cat number: [id number] Retail Cashier: [employer] Lot number: [id number] Device identifier: [id number] Device identifier type: GS1 As of 10/23/2023 Status: Implanted [employer] Creo Od7.5 Mm L55 Mm Thread Polyaxial Spine Screw Bone Titanium 5146.1757 - [id number] - Implanted Spine Lumbar Inventory item: [employer] Creo Od7.5 Mm L55 Mm Thread Polyaxial Spine Screw Bone Titanium 5146.1757 Model/Cat number: [id number] Retail Cashier: [employer] As of 10/23/2023 Status: Implanted [employer] Creo Od7.5 Mm L50 Mm Thread Polyaxial Spine Screw Bone Titanium 5146.1752 - [id number] - Implanted Spine Lumbar Inventory item: [employer] Creo Od7.5 Mm L50 Mm Thread Polyaxial Spine Screw Bone Titanium 5146.1752 Model/Cat number: [id number] Retail Cashier: [employer] As of 10/23/2023 Status: Implanted [employer] Creo Thread Spinal Cap Locking Nonsterile 1119.0010 - [id number] - Implanted Spine Lumbar Inventory item: [employer] Creo Thread Spinal Cap Locking Nonsterile 1119.0010 Model/Cat number: [id number] Retail Cashier: [employer] As of 10/23/2023 Status: Implanted [employer] Implant Spinal Sable 16n12tg 7-14mm 15 Deg 1172.2121s - [id number] - Implanted Spine Lumbar Inventory item: [employer] Implant Spinal Sable [id number] 7-14mm 15 Deg 1172.2121S Model/Cat number: [id number] Retail Cashier: [employer] As of 10/23/2023 Status: Implanted [employer] Creo 5.5mm 45mm Curve Daniel Spinal Titanium 1119.7045 - [id number] - Implanted Spine Lumbar Inventory item: [employer] Creo 5.5mm 45mm Curve Daniel Spinal Titanium 1119.7045 Model/Cat number: [id number] Retail Cashier: [employer] As of 10/23/2023 Status: Implanted [facility] Rex Tulip Navalign 30mm 7fr 50mm 65cm Introducer Sheath [id number] - [id number] -Implanted Inventory item: [employer] Rex Tulip Navalign 30mm 7fr 50mm 65cm Introducer Sheath [id number]/Cat number: [id number] Retail Cashier: [facility] Lot number: [id number] As of 11/09/2023 Status: Implanted SKIN Piercings Remaining: No Wound (LDAs) Type of Wound (LDA): (patient denies) SCREENINGS Joni index score: 55 PATIENT CARE PLANNING Advance Directives (For Healthcare) Have you reviewed your Advance Directive and is it valid for this stay?: Yes Advance Directive: Patient has advance directive, copy in chart Type of Healthcare Directive: Durable power of staff attorney for health care Communication/Roof Foreman Needs Communication Barriers: Visual Communication Needs: Glasses Assistive Devices/DME: Eyeglasses, Motorized wheelchair Hearing - Right Ear: Functional Hearing - Left Ear: Functional Discharge Planning Type of Residence: Other (Comment) (Rehab) Living Arrangements: Other (Comment) (rehab) Support Systems: Family members, Friends/neighbors, Spouse/significant other Patient expects to be discharged to:: Acute Rehab (Rehab facility will provide transportation to and from surgery.) 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 You should leave your valuables and any jewelry at home. No metal or piercings are allowed in the operating room. You should bring your insurance card, a photo ID (example: Lineman Service Or Work Dispatcher's License) and a method of payment for [...] Chart. If you are having surgery at [facility], please arrive on the day of surgery [...] Pathway to Excellent Care by the followinglink: [email or web address] How To Prepare Your Skin [...] Remove nail coverings, artificial nails and nail vietnamese. Place clean linens on your bed the [...] questions, please call the CPAP Staff at [phone], Sunday-Sunday 8am-4:30pm. All patients should read the below section: COVID 19 Updates & Visitor Policy: Please access [email or web address] for the most updated information. Information on [facility]: Please view [email or web address] (Patient & Visitor Information) for additional details regarding Advanced Directive forms, AWARE, directions, parking information, lodging, Internet access, dining and more. Information on [facility] or [facility] ([facility]): Please view [email or web address] (Patient and Visitor Information) for parking/directions and more. For MyChart information, to activate account or password recovery, please go to [email or web address] or call [phone] (toll-free: [phone]), Sun- Sunday 8am-5pm. Information for Suicide Prevention: National Suicide Prevention Lifecarpooling.com (0-804- 083-NZGK (3620)) or call or text 661. Chat resources: [place].Ventive. Surgery Times: For patients having surgery @ [facility] or [facility] ([facility]), if your surgeon's office has not notified you of your surgery time by NOON THE BUSINESS DAY BEFORE your surgery, please call [phone] and ask for your surgeon's office Dr. Mcintosh. The Center for Preoperative Assessment & Planning ([facility]) does not provide arrival times for the day of surgery or provide the duration of surgery. This information is provided by your surgeon'soffice or by the center where you are having surgery. We appreciate your understanding. K PLUG TESTER documented in this encounter Plan of Treatment Not on file documented as of this encounter Procedures Procedure Name Priority Date/Time Associated Diagnosis Comments EGFR Timed 12/27/2023 12:19 AM SPARK PLUG TESTER CBC WITHOUT DIFFERENTIAL Timed 12/27/2023 12:19 AM SPARK PLUG TESTER PHOSPHORUS Timed 12/27/2023 12:19 AM SPARK PLUG TESTER MAGNESIUM Timed 12/27/2023 12:19 AM SPARK PLUG TESTER BASIC METABOLIC PANEL Timed 12/27/2023 12:19 AM SPARK PLUG TESTER PERCUTANEOUS NEPHROSTOMY PCN LEFT ED Urgent/IP Urgent 12/26/2023 1:00 PM SPARK PLUG TESTER EGFR Routine 12/26/2023 12:08 AM SPARK PLUG TESTER APTT Routine 12/26/2023 12:08 AM SPARK PLUG TESTER PROTIME-INR Routine 12/26/2023 12:08 AM SPARK PLUG TESTER CBC WITHOUT DIFFERENTIAL Routine 12/26/2023 12:08 AM SPARK PLUG TESTER PHOSPHORUS Routine 12/26/2023 12:08 AM SPARK PLUG TESTER MAGNESIUM Routine 12/26/2023 12:08 AM SPARK PLUG TESTER BASIC METABOLIC PANEL Routine 12/26/2023 12:[address] UROGRAM W 3D ED Urgent/IP Urgent 12/25/2023 4:23 PM SPARK PLUG TESTER FL FLUOROSCOPY < 1 HOUR IP Routine 12/25/2023 8:21 AM SPARK PLUG TESTER URETEROSCOPY 12/25/2023 7:28 AM SPARK PLUG TESTER Kidney stone PYELOGRAM - RETROGRADE 12/25/2023 7:28 AM SPARK PLUG TESTER Kidney stone CYSTOSCOPY 12/25/2023 7:28 AM SPARK PLUG TESTER Kidney stone documented in this encounter Results * eGFR (12/27/2023 12:19 AM SPARK PLUG TESTER) Pathologist [facility] eGFR >90 >=60 mL/min/1. 73 m2 [facility]URA [facility]RAL Comment: Interpretive Data Reference Interval Normal ?>/= [...] reviewed 2021. Blood 12/27/2023 12:1 9 AM SPARK PLUG TESTER 12/27/2023 12:52 AM SPARK PLUG TESTER Temo Mcintosh MD LAB BLOOD ORDERABLES Fin al Result Performing Organization Address [facility] de Phone Number [facility] [place] [address] * Phosphorus (12/27/2023 12:19 AM SPARK PLUG TESTER) Pathologist [facility] Phosphorus, pl 3.1 2.3 - 4.5 mg/dL [facility] Blood 12/27/2023 12:1 9 AM SPARK PLUG TESTER 12/27/2023 12:52 AM SPARK PLUG TESTER Temo Mcintosh MD LAB BLOOD ORDERABLES Fin al Result Performing Organization Address [facility] de Phone Number [facility] Department [place] [address] * Magnesium (12/27/2023 12:19 AM SPARK PLUG TESTER) Pathologist [facility] Magnesium 2.0 1.4 - 2.5 mg/dL [facility] Blood 12/27/2023 12:1 9 AM SPARK PLUG TESTER 12/27/2023 12:52 AM SPARK PLUG TESTER Temo Mcintosh MD LAB BLOOD ORDERABLES Fin al Result Performing Organization Address [facility] de Phone Number [facility] Department [place] [address] * (ABNORMAL) Basic metabolic panel (12/27/2023 12:19 AM SPARK PLUG TESTER) Pathologist [facility] Sodium 140 135 - 145 mmol/L [facility] Potassium, pl 3.4 3.3 - 4.9 mmol/L [facility] Chloride 102 97 - 110 mmol/L [facility] CO2 29 22 - 32 mmol/L [facility] Anion gap 9 2 - 15 mmol/L [facility] BUN 12 6 - 25 mg/dL [facility] Creatinine 0.78(L) 0.80 - 1.30 mg/dL [facility] Glucose 123 70 - 199 mg/dL [facility] Comment: Interpretive Data Fasting glucose >/= [...] 2022. Calcium 8.6 8.5 - 10.3 mg/dL [facility] Blood 12/27/2023 12:1 9 AM SPARK PLUG TESTER 12/27/2023 12:52 AM SPARK PLUG TESTER Temo Mcintosh MD LAB BLOOD ORDERABLES Fin al Result Performing Organization Address [facility]/ZIP Co de Phone Number [facility] Department [place] [address] * (ABNORMAL) CBC without differential (12/27/2023 12:19 AM SPARK PLUG TESTER) WBC 7.4 3.8 - 9.9 K/cumm [facility] Hgb 10.1(L) 13.0 - 17.5 g/dL [facility] Hct 30.8(L) 38.9 - 50.3 % [facility] Plt 158 150 - 400 K/cumm [facility] MPV 11.5 9.1 - 12.3 fL [facility] RBC 3.34(L) 4.30 - 5.80 M/cumm [facility] MCV 92.2 81.3 - 96.4 fL [facility] MCH 30.2 27.1 - 33.3 pg [facility] MCHC 32.8 32.3 - 35.7 g/dL [facility] RDW CV 14.2 11.1 - 14.9 % [facility] RDW SD 48.2(H) 35.7 - 48.1 fL [facility] NRBC abs 0.00 0.00 - 0.01 K/cumm [facility] Blood 12/27/2023 12:1 9 AM SPARK PLUG TESTER 12/27/2023 12:52 AM SPARK PLUG TESTER Temo Mcintosh MD LAB BLOOD ORDERABLES Fin al Result Performing Organization Address [facility] Co de Phone Number [facility] Department [place] [address] * IR Percutaneous Nephrostomy Left (12/26/2023 1:00 PM SPARK PLUG TESTER) Anatomical Region Laterality Modality Body Left Ultrasound 12/26/2023 3:27 PM SPARK PLUG TESTER Impressions 12/26/2023 4:49 PM SPARK PLUG TESTER Successful left 10-Indonesian percutaneous nephrostomy tube placement. PLAN: ?? Patient [...] Cici Romero MD Narrative 12/26/2023 4:49 PM SPARK PLUG TESTER EXAMINATION : LEFT PERCUTANEOUS NEPHROSTOMY CATHETER PLACEMENT [...] was obtained. Prior to beginning the procedure, [place] Protocol was performed to confirm the patient's [...] the tract was dilated before placing a 10-Indonesian cope catheter. ??The retaining loop was formed [...] violate the pleura or bowel. Procedure Note Antonia Romero, Cici Rasmussen MD - 12/26/2023 EXAMINATION : LEFT PERCUTANEOUS [...] was obtained. Prior to beginning the procedure, [place] Protocol was performed to confirm the patient's [...] the tract was dilated before placing a 10-Indonesian cope catheter. The retaining loop was formed [...] the pleura or bowel. IMPRESSION: Successful left 10-Indonesian percutaneous nephrostomy tube placement. PLAN: Patient needs [...] Final Result * eGFR (12/26/2023 12:08 AM SPARK PLUG TESTER) eGFR >90 >=60 mL/min/1. [address] [facility] Comment: Interpretive Data Reference Interval Normal ?>/= [...] reviewed 2021. Blood 12/26/2023 12:0 8 AM SPARK PLUG TESTER 12/26/2023 12:53 AM SPARK PLUG TESTER Temo Mcintosh MD LAB BLOOD ORDERABLES Fin al Result [facility] Department [place] [address] * (ABNORMAL) CBC without differential (12/26/2023 12:08 AM SPARK PLUG TESTER) WBC 9.4 3.8 - 9.9 K/cumm [facility] Hgb 10.5(L) 13.0 - 17.5 g/dL [facility] Hct 32.4(L) 38.9 - 50.3 % [facility] Plt 189 150 - 400 K/cumm [facility] MPV 11.5 9.1 - 12.3 fL [facility] RBC 3.50(L) 4.30 - 5.80 M/cumm [facility] MCV 92.6 81.3 - 96.4 fL [facility] MCH 30.0 27.1 - 33.3 pg [facility] MCHC 32.4 32.3 - 35.7 g/dL [facility] RDW CV 14.1 11.1 - 14.9 % [facility] RDW SD 48.1 35.7 - 48.1 fL [facility] NRBC abs 0.00 0.00 - 0.01 K/cumm [facility] Blood 12/26/2023 12:0 8 AM SPARK PLUG TESTER 12/26/2023 12:54 AM SPARK PLUG TESTER Temo Mcintosh MD LAB BLOOD ORDERABLES Fin al Result Performing Organization Address City/[facility] de Phone Number [facility] [place] [address] * Phosphorus (12/26/2023 12:08 AM SPARK PLUG TESTER) Pathologist [facility] Phosphorus, pl 3.2 2.3 - 4.5 mg/dL [facility] Blood 12/26/2023 12:0 8 AM SPARK PLUG TESTER 12/26/2023 12:53 AM SPARK PLUG TESTER Temo Mcintosh MD LAB BLOOD ORDERABLES Fin al Result Performing Organization Address [facility] de Phone Number [facility] [place] [address] * Magnesium (12/26/2023 12:08 AM SPARK PLUG TESTER) Pathologist [facility] Magnesium 2.0 1.4 - 2.5 mg/dL [facility] Blood 12/26/2023 12:0 8 AM SPARK PLUG TESTER 12/26/2023 12:53 AM SPARK PLUG TESTER Temo Mcintosh MD LAB BLOOD ORDERABLES Fin al Result Performing Organization Address [facility] [place] [address] * Basic metabolic panel (12/26/2023 12:08 AM SPARK PLUG TESTER) Sodium 142 135 - 145 mmol/L [facility] Potassium, pl 3.4 3.3 - 4.9 mmol/L [facility] Chloride 104 97 - 110 mmol/L [facility] CO2 27 22 - 32 mmol/L [facility] Anion gap 11 2 - 15 mmol/L [facility] BUN 13 6 - 25 mg/dL [facility] Creatinine 0.80 0.80 - 1.30 mg/dL [facility] Glucose 122 70 - 199 mg/dL [facility] Comment: Interpretive Data Fasting glucose >/= [...] 2022. Calcium 9.0 8.5 - 10.3 mg/dL [facility] Blood 12/26/2023 12:0 8 AM SPARK PLUG TESTER 12/26/2023 12:53 AM SPARK PLUG TESTER Temo Mcintosh MD LAB BLOOD ORDERABLES Fin al Result [facility] Department [place] [address] * Protime-INR (12/26/2023 12:08 AM SPARK PLUG TESTER) PT 12.2 10.3 - 13.7 sec [facility] INR 1.07 0.90 - 1.20 [facility] Comment: Interpretive data Oral anticoagulant therapeutic ranges: Venous thromboembolism prophylaxis or treatment: 2.0-3.0 CARDIOLOGY Standard range: 2.0-3.0 High-intensity range: 2.5-3.5 Refer to indication-specific guidelines for appropriate target ranges for prosthetic heart valve replacement. Current interpretive data was last revised on 2019. Blood 12/26/2023 12:0 8 AM SPARK PLUG TESTER 12/26/2023 12:55 AM SPARK PLUG TESTER Temo Mcintosh MD LAB BLOOD ORDERABLES Fin al Result Performing Organization Address [facility] de Phone Number [facility] [place] [address] * aPTT (12/26/2023 12:08 AM SPARK PLUG TESTER) aPTT 29 28 - 38 sec [facility] Comment: Interpretive Data Heparin therapeutic range: 66.0 - 100.0 seconds. Range based on correlation with therapeutic heparin activity range of 0.3 - 0.7 Units/mL. Current interpretive data was last revised on 2023. Blood 12/26/2023 12:0 8 AM SPARK PLUG TESTER 12/26/2023 12:55 AM SPARK PLUG TESTER Temo Mcintosh MD LAB BLOOD ORDERABLES Fin al Result Performing Organization Address [facility] Phone Number LAUR[place] [address] * CT Urogram W 3D (12/25/2023 4:23 PM SPARK PLUG TESTER) Anatomical Region Laterality Modality Body Computed Tomogra phy 12/25/2023 5:08 PM SPARK PLUG TESTER Addenda Addendum by Elsy Fields MD on 12/26/2023 8:29 AM SPARK PLUG TESTER When comparing to the retrograde pyelogram 10/18/2023, [...] Elsy Fields M.D. Impressions 12/26/2023 6:58 AM SPARK PLUG TESTER 1. ??Interval removal of left-sided ureteral stent. [...] Elsy Fields M.D. Narrative 12/26/2023 6:58 AM SPARK PLUG TESTER EXAMINATION: 1. CT UROGRAPHY WITH AND WITHOUT [...] Electronically signed by: Elsy Fields M.D. Temo JEFF CT PROCEDURES Edited Result - Final * [place] Fluoroscopy < 1 Hour (12/25/2023 8:21 AM SPARK PLUG TESTER) Narrative [facility] - 12/25/2023 8:21 AM SPARK PLUG TESTER The images from this study are not interpreted by Radiology. ??Please refer to the physician's procedure / OR operative note. Temo Mcintosh MD [facility] [place] FLUOROSCOPY PROCEDUR ES Final Result [facility]_PACS[facility] documented in this encounter Visit Diagnoses Diagnosis Kidney stone- Primary Calculus of kidney Nephrolithiasis Calculus of kidney Nephrolithiasis Calculus of kidney Kidney stone Calculus of kidney documented in this encounter [...] Sun12/26/23 at 1445 Given 12/27/2023 12:44 PM SPARK PLUG TESTER 1,000 mg Given 12/26/2023 2:40 PM SPARK PLUG TESTER 1,000 mg acyclovir (ZOVIRAX) tablet 400 mg 400 mg, oral, 2 times daily, First dose on Sun12/25/23 at 1045, Indications: Chronic SuppressionIndications:Chronic Suppression Given 12/27/2023 8:13 AM SPARK PLUG TESTER 4 00 mg Given 12/26/2023 8:40 PM SPARK PLUG TESTER 400 mg Given 12/26/2023 10:27 AM SPARK PLUG TESTER 400 mg calcium carbonate (TUMS) chewable tablet [...] tablet/capsule., Indications: hypertensionIndications:hypertension Given 12/26/2023 8:39 PM SPARK PLUG TESTER 240 mg Given 12/25/2023 11:41 AM SPARK PLUG TESTER 240 mg furosemide (LASIX) tablet 40 mg 40 mg, oral, 2 times daily (for diuretics), First dose (after last modification) on Sun12/25/23 at 1115, Indications: EdemaIndications:Edema Given 12/27/2023 8:13 AM SPARK PLUG TESTER 40 mg Given 12/26/2023 2:40 PM SPARK PLUG TESTER 40 mg Given 12/26/2023 10:27 AM SPARK PLUG TESTER 40 mg gabapentin (NEURONTIN) capsule 600 mg 600 mg, oral, 3 times daily, First dose on Sun12/25/23 at 1045, Indications: PainIndications:Pain Given 12/26/2023 8:39 PM SPARK PLUG TESTER 600 mg Given 12/26/2023 10:28 AM SPARK PLUG TESTER 600 mg Given 12/25/2023 9:35 PM SPARK PLUG TESTER 600 mg iothalamate meglumine (CONRAY) 60 % injection As needed, Starting on Sun12/25/23 at 0740, Intra-Op Given 12/25/2023 7:40 AM SPARK PLUG TESTER 7 mL Surgical Site Lactated Ringer's (LR) infusion 75 mL/hr, intravenous, Continuous, Starting on Sun12/25/23 at 0930, Phase I & Post-op Floor Rate/Dose Verify 12/27/2023 11:25 AM SPARK PLUG TESTER 75 mL/hr 75 mL/hr New Bag 12/27/2023 4:51 AM SPARK PLUG TESTER 75 mL/hr 75 mL/hr Rate/Dose Verify 12/26/2023 7:27 PM SPARK PLUG TESTER 75 mL/hr 75 mL/h r levETIRAcetam (KEPPRA) [...] tube., Indications: seizuresIndications:seizures Given 12/27/2023 8:13 AM SPARK PLUG TESTER 1,000 mg Given 12/26/2023 8:39 PM SPARK PLUG TESTER 1,000 mg Given 12/26/2023 10:28 AM SPARK PLUG TESTER 1,[address] (PROTONIX) extended release tablet 40 mg 40 mg, oral, Every morning, First dose on Sun12/25/23 at 1045, Do not crush, chew, cut, dissolve, open or otherwise manipulate tablet/capsule., Indications: Treatment of Non-Bleeding Gastric Disorder, acid refluxIndications:Treatment of Non-Bleeding Gastric Disorder,acid reflux Given 12/27/2023 8:13 AM SPARK PLUG TESTER 40 mg Given 12/26/2023 10:27 AM SPARK PLUG TESTER 40 mg Given 12/25/2023 11:42 AM SPARK PLUG TESTER 40 mg ramelteon (ROZEREM) tablet 8 mg 8 mg, oral, Nightly, First dose on Sun12/25/23 at 2100, Indications: Sleep-Onset InsomniaIndications:Sleep-Onset Insomnia Given 12/26/2023 8:39 PM SPARK PLUG TESTER 8 m g Given 12/25/2023 9:34 PM SPARK PLUG TESTER 8 mg ramelteon (ROZEREM) tablet 8 mg 8 mg, oral, Nightly PRN, sleep, Starting on Sun12/25/23 at 1218, Indications: Sleep-Onset InsomniaIndications:Sleep-Onset Insomnia senna-docusate (PERICOLACE) 8.6-50 mg per tablet 1 tablet 1 tablet, oral, Nightly, First dose on Sun12/25/23 at 2100, Indications: constipationIndications:constipation Given 12/26/2023 8:39 PM SPARK PLUG TESTER 1 table t Given 12/25/2023 9:35 PM SPARK PLUG TESTER 1 tablet simethicone (MYLICON) chewable tablet 80 mg 80 mg, oral, 2 times daily PRN, flatulence, other, gas pain, Starting on Sun12/25/23 at 1218 sodium chloride 0.9% flush 0.5-20 mL 0.5-20 mL, intra-catheter, Every 8 hours scheduled, First dose on Sun12/25/23 at 1400, Flush volume based on line type and size. Given 12/25/2023 12:45 PM SPARK PLUG TESTER 1 0 mL sodium chloride 0.9% flush 0.5-20 mL 0.5-20 mL, intra-catheter, Every 8 hours scheduled, First dose on Sun12/26/23 at 1400, Pre-Procedure (IR), Flush volume based on line type and size. Given 12/27/2023 6:00 AM SPARK PLUG TESTER 10 mL Given 12/26/2023 8:40 PM SPARK PLUG TESTER 10 mL sodium chloride 0.9% flush 0.5-20 mL 0.5-20 mL, intra-catheter, As needed, line care, Starting on Sun12/26/23 at 1111, Pre-Procedure (IR), Flush volume based on line type and size. Flush before and after each use. sodium chloride 0.9% irrigation As needed, Starting on Sun12/25/23 at 0757, Intra-Op Given 12/25/2023 7:57 AM SPARK PLUG TESTER 7,000 mL Surgical Site documented in this encounter Discontinued Medications Medication [...] Recently Administered Medications Times are shown in SPARK PLUG TESTER. Scheduled Medication Order 12/25/2023 12/26/2023 12/27/2023 acetaminophen [...] holding overnight) 1027 (Not Given - Provider: Kihsan Hanson RN - Reason: Other - Comment: low BP)2039 (Given - Provider: Bharti Viramontes RN) 0813 [...] Patient/family refused - Comment: does not want today)2134 (Given - Provider: Bharti Viramontes RN) 1028 [...] seizures 1245 (Given - Provider: Katharine Montgomery RN)2134 (Given - Provider: Bharti Viramontes RN) 1028 (Given - Provider: Kishan Hanson RN)203 (Given - Provider: Bharti Viramnotes RN) 0813 (Given - Provider: Kishan Hanson [...] Provider: Kishan Hanson RN - Reason: IV Infusing)2040 (Not Given - Provider: Bharti Viramontes RN [...] See Provider Order)1037 (Stopped - Provider: Katharine Montgomery, NARENDRA) Lactated Ringer's (LR) infusion 75 mL/hr, intravenous, Continuous, Starting on Sun12/25/23 at 0930, Phase I & Post-op Floor 0905 (New Bag - Provider: Francisco Javier Mcnamara RN)1107 (Rate/Dose Verify - Provider: Katharine Montgomery, NARENDRA)2338 [...] Torey Banks RT) ioversoL (OPTIRAY 350) injection (COMPLETED) As [...] Gabriel Aguilar RN)1237 (Given - Provider: Gabriel Agiular RN) ramelteon (ROZEREM) tablet 8 mg 8 [...] Ordered Date acetaminophen (TYLENOL) tablet 1,000 mg 2 0 12/26/2023 12/25/2023 Carrier Fluids for Secondary Infusion - 0.9% Sodium Chloride 3 12/26/2023 12/25/2023 fentaNYL (SUBLIMAZE) preserv ative free injection 1 12/26/2023 ioversoL (OPTIRAY 350) injection 1 12/26/19 lidocaine PF (XYLOCAINE) 10 mg/mL (1 %) preservative free injection 1 12/26/2023 midazolam (VERSED) 1 mg/mL injection 1 12/07 potassium chloride ER (KLOR- CON) extended release tablet 30 mEq 1 12/26/2023 sodium chloride 0.9% flush 0.5-20 mL 5 12/0712/25/2023 sodium chloride 0.9% infusion 1 12/26/2023 acetaminophen (TYLENOL) tablet 650 mg 1 acyclovir (ZOVIRAX) tablet 400 mg 1 024 bisacodyL (DULCOLAX) suppository 10 mg 1 calcium carbonate (TUMS) sherice wable tablet 1,000 mg 1 12/25/2023 cefTRIAXone (ROCEPHIN) 2,000 mg/20 mL in sterile water (premix) 2,000 mg 1 12/25/2023 cyclobenzaprine (FLEXERIL) tablet 5 mg 1 dilTIAZem XR (CARDIZEM CD,DI LACOR XR) 24 hour capsule 240 mg 1 12/25/2023 enoxaparin (LOVENOX) syringe 80 mg 2023 famotidine (PEPCID) injection 20 mg 1 12/25 fentaNYL (SUBLIMAZE) preserv ative free injection 50 mcg 1 12/25/2023 furosemide (LASIX) tablet 40 mg 2 gabapentin (NEURONTIN) capsule 600 mg HYDROmorphone (DILAUDID) injection 0.4 mg 1 12/25/2023 ioversoL (OPTIRAY 350) injection 100 mL 1 0 12/25/2023 ioversoL (OPTIRAY 350) injection 50 mL 1 Lactated Ringer's (LR) infusion 4 levETIRAcetam (KEPPRA) tablet 1,000 mg 1 metoclopramide (REGLAN) 5 mg /mL injection 10 mg 1 12/25/2023 naloxone (NARCAN) 0.4 mg/mL injection 0.04-0.4 mg 1 12/25/2023 ondansetron (ZOFRAN) injection 4 mg 1 12/[address] (PROTONIX) e xtended release tablet 40 mg 1 12/25/2023 ramelteon (ROZEREM) tablet 8 mg 2 senna-docusate (PERICOLACE) 8.6-50 mg per tablet 1 tablet 1 12/25/2023 simethicone (MYLICON) chewab le tablet 80 mg 1 12/25/2023 Nursing Count Last Ordered Date First Orde [...] 12/25/2023 documented in this encounter Care Teams Yellow Pages Space Salesperson Relationship Specialty Start Date End Date Rl Medina DO [address] [place] [address] PCP - General 08/09/17 05/25/24 documented as of this encounter
--- OUTSIDE RECORDS SUMMARY | 2024-11-05 19:19 | XMS_ITS | Encounter Summary ---
Author Organization [facility] Healthcare Address [address] [place] [address] Care Team Providers Care Art Coordinator Name Role Phone Rl Medina DO Primary Care Provider Reason for Referral * MRI/CAT/PET Scan (Routine) - Closed Specialty Diagnoses / Procedures Referred By Charlesac t Referred To Contact Radiology Diagnoses SDH (subdural hematoma) (HCC) Procedures CT Head WO Contrast Carrie Jerez NP [address] [place] [address] Phone: tel: fax: [address] [phone] Referral ID Status Reason Start Date Expiration Date Visits Re quested Visits Authorized [id number] Closed 10/30/2023 11/28/2024 1 1 EDURAL NURSE Reason for Visit * MRI/CAT/PET Scan (Routine) - Closed Specialty Diagnoses / Procedures Referred By Contac t Referred To Contact Radiology Diagnoses SDH (subdural hematoma) (HCC) Procedures CT Head WO Contrast Carrie Jerez NP [address] [place] [address] Phone: tel: fax: [address] [phone] Referral ID Status Reason Start Date Expiration Date Visits Re quested Visits Authorized [id number] Closed 10/30/2023 11/28/2024 1 1 Encounter Details Date Type Department Care Team (Latest Contact Info) Description 12/24/2023 1:41 PM PROCEDURAL NURSE - 12/24/2023 11:59 PM PROCEDURAL NURSE Hospital Encounter [facility] [id number] [address] SDH (subdural hematoma) (HCC) Discharge Disposition: Discharge to home or [...] attend chur ch or buddhist services? Never 11/30/2023 Do you belong to any clubs o r organizations such as baptism groups, unions, fraternal or athletic groups, or [...] in a senior living (including now)? No 11/30/2023 Personal Safety Answer Date Recorded Have you ever been in or are you currently in a harmful physical or emotional relationship or is someone making you feel afraid or unsafe? 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 Not on file Not [...] topically 2 (two) times a day 12/10/[address] (PROTONIX) 40 mg EC tabletIndications :Treatment of Non-Bleeding Gastric Disorder Take 1 tablet (40 mg total) by mouth daily 12/11/2023 5 senna-docusate (PERICOLACE) 8.6-50 mg Take 1 tablet by mouth nightly 12/10/2023 tamsulosin (FLOMAX) 0.4 mg extended release capsule Take 2 capsules (0.8 mg total) by mouth daily with dinner 12/10/2023 acetaminophen 500 mg capsule Take 2 capsules (1,000 mg total) by mouth every 6 (six) hours as needed for pain 12/10/2023 4 DILT-XR 240 mg 24 hr capsuleIndication [...] nightly 4 documented as of this encounter Discharge Disposition Disposition Code Departure Means Destination Discharge to home or self care documented in this encounter Plan of Treatment Not on file documented as of this encounter Procedures Procedure Name Priority Date/Time Associated Diagnosis Comments CT HEAD WO CONTRAST Schedule Routine, Read Routine (OP Routine) 12/24/2023 1:48 PM PROCEDURAL NURSE SDH (subdural hematoma) (HCC) documented in this encounter Results * CT Head WO Contrast (12/24/2023 1:48 PM PROCEDURAL NURSE) Anatomical Region Laterality Modality Head and Neck N/A Computed Tomogra phy 12/24/2023 1:58 PM PROCEDURAL NURSE Impressions 12/24/2023 1:58 PM PROCEDURAL NURSE 1. Interval resolution of bilateral subdural collections along the cerebral convexities. 2. ??No new acute intracranial hemorrhage, significant mass effect, or hydrocephalus. Electronically signed by: Francia Schmitz M.D. Narrative 12/24/2023 1:58 PM PROCEDURAL NURSE EXAMINATION: CT head without contrast HISTORY: Follow-up subdural hemorrhage TECHNIQUE: CT of the head was performed with images acquired from skull base to vertex without intravenous contrast. COMPARISON: Head CT dated 10/28/2023. FINDINGS: Interval resolution of thin bilateral largely isodense subdural collections along the cerebral convexities, measuring 2 mm on the left and 1 mm in the right. There is mild extension along the falx and tentorium. There is no new acute intracranial hemorrhage. ??Mild global cerebral volume loss with ex vacuo dilatation of the ventricles. Ventricles are of unchanged size and morphology. ??Mild periventricular and subcortical hypodensities are nonspecific but likely represent small vessel ischemic disease. ??No mass effect or midline shift is present. The alvarado-white matter differentiation is normal. The visualized portions of the orbits are normal. The visualized portions of the mastoids are normal. Small mucous retention cysts of the bilateral maxillary sinuses. No fractures are identified. High riding right jugular bulb. Procedure Note Francia Ghotra MD - 12/24/2023 EXAMINATION: CT head without contrast HISTORY: Follow-up subdural hemorrhage TECHNIQUE: CT of the head was performed with images acquired from skull base to vertex without intravenous contrast. COMPARISON: Head CT dated 10/28/2023. FINDINGS: Interval resolution of thin bilateral largely isodense subdural collections along the cerebral convexities, measuring 2 mm on the left and 1 mm in the right. There is mild extension along the falx and tentorium. There is no new acute intracranial hemorrhage. Mild global cerebral volume loss with ex vacuo dilatation of the ventricles. Ventricles are of unchanged size and morphology. Mild periventricular and subcortical hypodensities are nonspecific but likely represent small vessel ischemic disease. No mass effect or midline shift is present. The alvarado-white matter differentiation is normal. The visualized portions of the orbits are normal. The visualized portions of the mastoids are normal. Small mucous retention cysts of the bilateral maxillary sinuses. No fractures are identified. High riding right jugular bulb. IMPRESSION: 1. Interval resolution of bilateral subdural collections along the cerebral convexities. 2. No new acute intracranial hemorrhage, significant mass effect, or hydrocephalus. Electronically signed by: Francia Schmitz M.D. Carrie Jerez NP IMG CT PROCEDURES Final Re sult documented in this encounter Visit Diagnoses Diagnosis SDH (subdural hematoma) (HCC) Subdural hemorrhage documented in this encounter Care Teams Art Coordinator Relationship Specialty Start Date End Date Rl Medina DO [address] [place] [address] PCP - General 08/09/17 05/25/24 documented as of this encounter
--- OUTSIDE RECORDS SUMMARY | 2024-11-05 19:19 | XMS_ITS | Encounter Summary ---
Author Organization [facility] Healthcare Address [address] [place] [address] Care Team Providers Care Casing Finisher And Stuffer Name Role Phone Rl Medina DO Primary Care Provider No, Physician Primary Care Provider [phone] Encounter Details Date Type Department Care Team (Late st Contact Info) Description 03/13/2024 Telephone [facility] Radiology [address] [place] [address] Crow Pham RN Social History Tobacco Use Types Packs/Day Years Used Date Smoking Tobacco: Former Cigarettes 1 09 05 969 - 1979 Passive Smoke Exposure: Never Smokeless Tobacco: Never Alcohol Use Standard Drinks/Week Comments Yes 14 (1 standard drink = 0.6 oz pu re alcohol) social [facility] Utilities Answer Date Recorded In the past 12 months has [place], gas, oil, or water [employer] threatened to shut off services in your [...] often do you attend chur ch or alevism services? 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
--- OUTSIDE RECORDS SUMMARY | 2024-11-05 19:19 | XMS_ITS | Encounter Summary ---
Author Organization [facility] Address [address] [place] [address] Phone Care Team Providers Care Packing Shed Supervisor Name Role Phone Rl Medina DO Primary Care Provider [phone] Reason for Referral * Diagnostic Imaging (Routine) - Closed Specialty Diagnoses / Procedures Referred By Contac t Referred To Contact Diagnoses S/P laminectomy with spinal fusion Procedures XR Spine Lumbar 2 or 3 Views Marcial Vu Jr., MD [address] [address] Phone: tel: fax: [facility] Radiology [address] [place] [phone] Phone: tel: Referral ID Status Reason Start Date Expiration Date Visits Re quested Visits Authorized [id number] Closed 01/04/2024 02/02/2025 1 1 ER GUN * Diagnostic Imaging (Routine) - Closed Specialty Diagnoses / Procedures Referred By Contac t Referred To Contact Diagnoses S/P laminectomy with spinal fusion Procedures XR Spine Thoracic 2 Views Marcial Vu Jr., MD [address] [place] [address] Phone: tel: fax: [facility] [address] [place] [address] Phone: tel: Referral ID Status Reason Start Date Expiration Date Visits Re quested Visits Authorized [id number] Closed 01/04/2024 02/02/2025 1 1 ER GUN Reason for Visit * Reason Comments Post-op Encounter Details Date Type Department Care Team (Late st Contact Info) Description 01/07/2024 8:00 AM WELDER GUN Office Visit [facility] Orthopaedic Surgery [address] [place] [address] Marcial Vu Jr., MD [address] [facility] / [place] [address] S/P laminectomy with spinal fusion (Primary Dx) Social History Tobacco Use Types Packs/Day Years Used Date Smoking Tobacco: Former Cigarettes 1 11 1979 Passive Smoke Exposure: Never Smokeless Tobacco: Never Alcohol Use Standard Drinks/Week Comments Yes 14 (1 standard drink = 0.6 oz pu re alcohol) social [facility] Utilities Answer Date Recorded In the past 12 months has [employer], gas, oil, or water [employer] threatened to shut off services in your [...] on file 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 WELDER GUN Gender Identity Not on file Sexual Orientation Not on file 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 Dr. Vu has recommended the following treatment: -4 weeks -Okay to discontinue use of TLSO brace Please contact Galina Franco RN, BSN at [phone] or through [employer] if you have any further questions or concerns. Important Phone Numbers: Galina Franco, Nurse Coordinator to Dr. Vu: [phone] Appointment Line: [phone] For medical emergencies, please call 911. ER GUN ER GUN documented in this encounter Progress Notes * Marcial Vu MD - 01/07/2024 8:00 AM CST Images from the original note were not included. Postoperative Patient Visit Interim History Mr. Evans follows up today for routine postoperative visit with his , Val, and their daughter. He is status post: 10/23/2023: L4-L5 posterior spinal fusion with instrumentation, laminectomy, and TLIF for left L4 and L5 radiculopathy with weakness secondary to L4-L5 herniated nucleus pulposus, lumbar spondylosis,and lumbar spinal stenosis. This surgery was complicated by cardiac arrest immediately postoperatively and he was found to have bilateral pulmonary emboli requiring therapeutic anticoagulation. He developed an intraspinal bleed 2 weeks postoperatively with thoracic spinal cord and cauda equina injury. 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 He is now 2 months out from his most recent surgery. He remains at a long term facility. He has been receiving Lasix and bilateral lower extremity compressive wraps and his lower extremity swelling has improved significantly. He has been spending most of his time in a wheelchair. He has been receiving regular physical therapy. IVC filter is in place and he remains on therapeutic Lovenox. Hedenies new numbness, paresthesias, or weakness. He is wearing a diaper for bowel and bladder function. He underwent a left ureteral stent removal, stone extraction, and retrograde pyelogram on 12/25/2023. He does not feel that he has had any improvement in his lower extremity motor function. He does not have any headaches and has not had any signs or symptoms of CSF leak. Physical Examination He is sitting in his wheelchair in no apparent distress. He is in good spirits today. There is no lower extremity swelling. Posterior midline spinal incision is well healed without concerns for infection or wound complication. He has 5/5 strength and intact sensation to light touch throughout bilateral upper extremities. He is able to flicker his toes on the right, otherwise he is unable to demonstrate any motor function throughout the left lower extremities. He has intact sensation to light touch throughout bilateral lower extremities. PROMIS Scores 08/09/2021 11/08/2021 02/07/2022 09/13/2023 10/08/2023 01/07/2024 PROMIS Mobility V1.2 40.7 41.4 46.2 Pain Interference 56 59.1 48.5 66.9 73.7 56 Physical Function V2.0 38.6 36.4 48.5 28.6 26.7 18.5 Anxiety V1.0 51.2 54.9 49 60.5 57.2 56.5 Depression 43.3 51.2 48.1 48.1 46.1 49.4 Review of Plain Radiographs/Studies My independent interpretation of the patient's imaging studies is as follows: Plain films of the thoracic and lumbar spine AP and lateral obtained today performed with him sitting in his wheelchair using the best technique possible although the quality of the x-rays is limitedgiven his positioning in the wheelchair. They demonstrate stable instrumentation placement and alignment after L4-L5 fusion and thoracolumbar decompression. There is no sign of instability and no change in alignment compared to prior. Impression/Diagnosis 73-year-old male 10 weeks status post L4-L5 decompression and fusion complicated by cardiac arrest and bilateral pulmonary emboli immediately postoperatively requiring therapeutic anticoagulation whosubsequently developed a thoracic and lumbar epidural hematoma two weeks postoperatively causing anincomplete spinal cord injury and cauda equina injury. We brought him back to the OR emergently forthoracic and lumbar laminectomies and hematoma evacuation and a durotomy was encountered and repaired during this surgery. IVC filter was placed after this 2nd surgery and remains in place. He subsequently developed bilateral lower extremity DVTs and therapeutic anticoagulation was initiated 3 weeks after the 2nd surgery. He remains in a long term facility and has been working with therapy to maximize his mobility and upper extremity strength. Treatment Plan Told him that he can discontinue use of the TLSO brace. He and his family have been working on modifications to their home and lifestyle in order to prepare for him to return home from the long term facility. We will have him see Hematology to establish a long-term plan for anticoagulation and for the IVC filter. He will continue to follow up with Urology for treatment of his urologic issues. I will plan to see him back in 1 month, at his three-month postoperative visit or earlier if any issues arise. All of their questions were answered. They are understanding and in agreement with this plan. Marcial Vu Jr., MD Cad Specialist Department of Orthopaedic Surgery Division of Spine Surgery [facility], [place] Environmental Protection Geologist done by [employer]; therefore, variances and inaccuracies may occur. I reviewed the patient problem list pertinent to the visit today, but the entire patient problem list was not reviewed today. Total time spent on this patient visit today was 30 minutes dedicated to chart review, independent imaging review, patient evaluation, examination, counseling and education, and coordination of care. ER GUN documented in this encounter Plan of Treatment Not on file documented as of this encounter Results * XR Spine Lumbar 2 or 3 Views (01/07/2024 8:23 AM WELDER GUN) Anatomical Region Laterality Modality Spine N/A Computed Radiogr aphy 01/07/2024 9:23 AM WELDER GUN Impressions 01/07/2024 5:25 PM WELDER GUN Intact L4-L5 posterior spinal instrumented fusion with [...] Justin Choi MD Narrative 01/07/2024 5:25 PM WELDER GUN EXAMINATION: 1. ??XR SPINE THORACIC 2 VIEWS, [...] it. Electronically signed by: Justin Choi MD us Marcial Vu Jr., MD IMG XR PROCEDURES F inal Result * XR Spine Thoracic 2 Views (01/07/2024 8:23 AM WELDER GUN) Anatomical Region Laterality Modality Spine N/A Computed Radiogr aphy 01/07/2024 9:23 AM WELDER GUN Impressions 01/07/2024 5:25 PM WELDER GUN Intact L4-L5 posterior spinal instrumented fusion with [...] Justin Choi MD Narrative 01/07/2024 5:25 PM WELDER GUN EXAMINATION: 1. ??XR SPINE THORACIC 2 VIEWS, [...] laminectomy with spinal fusion- Primary Arthrodesis status S/P laminectomy with spinal fusion Arthrodesis status documented in this encounter Historical Medications * This list may reflect changes made after this encounter. metOLazone (ZAROXOLYN) 5 mg tablet Take 1 tablet (5 mg total) by mouth daily multivitamin tabletIndication s:wound healing Take 1 tablet by mouth early intervention specialist before breakfast zolpidem (AMBIEN) 5 mg tabletIndication s:Sleep-Onset Insomnia Take 1 tablet (5 mg total) by mouth nightly as needed for sleep 4 arginine-glutami ne-calcium HMB 7-7-1.5 gram powder in packetIndication s:wound Take 1 Dose by mouth 2 (two) times a day [employer] 4 added in this encounter Care Teams Packing Shed Supervisor Relationship Specialty Start Date End Date Rl Medina DO [address] [place] [address] PCP - General 08/09/17 05/25/24 documented as of this encounter
--- OUTSIDE RECORDS SUMMARY | 2024-11-05 19:19 | XMS_ITS | Encounter Summary ---
Author Organization [facility] Address [address] [place] [address] Phone Care Team Providers Care Ship Captain Name Role Phone Rl Medina DO Primary Care Provider Reason for Visit * Reason Onset Date Comments Med Management 02/07/2024 Appointment 02/07/2024 Encounter Details Date Type Department Care Team (Late st Contact Info) Description 02/07/2024 Telephone [facility] Orthopaedic Surgery [facility] [address] Office [address] [place] [address] Marcial Vu Jr., MD [facility] [place] [address] Med Management; Appointment Social History Tobacco Use Types Packs/Day Years Used Date Smoking Tobacco: Former Cigarettes 1 09 05 969 - 1979 Passive Smoke Exposure: Never Smokeless Tobacco: Never Alcohol Use Standard Drinks/Week Comments Yes 14 (1 standard drink = 0.6 oz pu re alcohol) social [facility] Utilities Answer Date Recorded In the past 12 months has [employer], gas, oil, or water [employer] threatened to shut off services in your [...] any clubs o r organizations such as cheondoism groups, unions, fraternal or athletic groups, or [...] making you feel afraid or unsafe? 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 Hematology is recommending for pt to follow up as scheduled in April which will be ~6 months since pt started on AC. Oneyda spoke with facility directly to [place] this as well. Spoke with Val, pt's today, updating her on plan/ status from a hematology standpoint. Val voiced understanding, will call back with additional questions or concerns. also updated on POC. * Telephone Encounter - Galina Franco RN - 02/13/2024 1:15 PM CDT Left second VM for Oneyda hem RN, requesting a call back to further discuss the plan for pt's anticoagulation. Reiterated pt's current medication regimen per his facility MD. Requested that this plan be reviewed with Dr. Hampton or another hematology provider to ensure pt is on an appropriate AC regimen. Requested a call back to my office number. Also provided Oneyda with facility RN line ([phone]). Also spoke with pt's Val. Scheduled Hira for his next visit with Dr. Vu on 03/27 (pt unable to come the week prior which would be 6 weeks from the previous visit). Val also had questionsabout pt's hematology appt/ if it was going to be moved up. She also asked about pt's AC medicationmanagement since pt's facility has restarted Hira on anticoagulation. Informed Val I am waiting to hear back from the hematology dept to discuss a plan for Hira moving forward. Told Val I will contact her again with an update once I have a better idea of treatment plan moving forward. Val in agreement with plan. * Telephone Encounter - Galina Franco RN - 02/08/2024 10:20 AM CDT Received call back from Tiffany Castro RN at [facility] where pt currently resides. Tiffany stated that the [facility] facility physician, Dr. Vinnie Cueva, discontinued pt's lovenox on 01/23. Per RN, Dr. Cueva discontinued pt's lovenox since he wanted pt to become more ambulatory. Pt is currently wheelchair bound. Tiffany stated the facility MD did not understand the complexity of pt's recent history with DVTs when lovenox was discontinued. Per Tiffany, facility physician started pt on xarelto 15mg BID x21 days yesterday and then will begin xarelto 20mg daily after initial dosing completed. Informed Tiffany I will update Dr. Vu and hematology team, and may call back the facility if t here are additional questions or concerns. Tiffany in agreement with plan. Left VM for Oneyda hematology RN, with the information I received from [facility]. Provided Tiffany with number for [facility] (ph. [phone]). Requested Tiffany contact me to discuss plan for pt's AC moving forward. Will also discuss with Dr. Vu. * Telephone Encounter - Galina Franco RN - 02/08/2024 10:04 AM CDT Oneyda hem RN, returned my call yesterday requesting clarification for why pt discontinued lovenox since it was not stopped by hematology. Per Oneyda, Dr. Hampton recommends a April appt for pt since that will be ~6 months from started AC. Plan to contact Oneyda again once I have a better idea of why pt;s lovenox was stopped. Left another VM for RN line at [facility]. Will continue to try to contact pt's facility. * Telephone Encounter - Galina Franco RN - 02/07/2024 9:23 AM CDT Pt seen in clinic this morning and Dr. Vu became aware that pt is not currently taking lovenoxor any other AC right now. It is unclear who instructed him to discontinue use of this medication or why it was discontinued. Pt is currently at [facility]. Dr. Vu is concerned that ptis not currently on anticoagulation since pt is at very high risk for DVT/ PE. Pt is currently scheduled for hematology appt with Dr. Hampton on 04/11/24, which was soonest date available when scheduled. I spoke with Nathalie in Hematology ([phone]. [phone]) requesting to move up pt's 04/11 clinic appt. Nathalie recommended I contact scheduling line for sooner appt and then contact Dr. Hampton's nurse, Oneyda, if still unable to move up appt. Unable to move up appt via scheduling line. Left VM for Oneyda MACKEY requesting for pt to be seen for a hematology appt sooner than 04/11 and/ or for additional recommendations from hematology for pt's anticoagulation. Provided my office number and contact info in message. Will wait to hear back from hematology. Left VM for [facility] where pt currently resides. Requested a call back to discuss when/ whypt stopped lovenox. Provided my direct number for a call back. documented in this encounter Plan of Treatment Not on file documented as of this encounter Visit Diagnoses Not on filedocumented in this encounter Care Teams Ship Captain Relationship Specialty Start Date End Date Albracht, Rl J., DO [address] [place] [address] PCP - General 08/09/17 05/25/24 documented as of this encounter
--- OUTSIDE RECORDS SUMMARY | 2024-11-05 19:19 | XMS_ITS | Encounter Summary ---
Author Organization [facility] Healthcare Address [address] [place] [address] Care Team Providers Care Pupil Personnel Services Director Name Role Phone Rl Medina DO Primary Care Provider Encounter Details Date Type Department Care Team (Late st Contact Info) Description 12/24/2023 Orders Only [facility] [phone] Unknown, Notinfile Social History Tobacco Use Types Packs/Day Years Used Date Smoking Tobacco: Former Cigarettes 1 11 969 - 1979 Passive Smoke Exposure: Never Smokeless Tobacco: Never Alcohol Use Standard Drinks/Week Comments Yes 14 (1 standard drink = 0.6 oz pu re alcohol) social C Utilities Answer Date Recorded In the past 12 months has [employer], gas, oil, or water [employer]OLED threatened to shut off services in your [...] attend chur ch or baptism services? Never 11/30/2023 Do you belong to any clubs o r organizations such as congregation groups, unions, fraternal or athletic groups, or [...] slept in a fdc (including now)? No 11/30/2023 Personal Safety Answer Date Recorded Have you ever been in or are you currently in a harmful physical or emotional relationship or is someone making you feel afraid or unsafe? 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 Not on file Not on file documented as of this encounter Plan of Treatment Not on file documented as of this encounter Procedures Procedure Name Priority Date/Time Associated Diagnosis Comments CS GLUCOSE Routine Gen Lab 12/24/2023 6:25 AM ADOPTION SPECIALIST EGFR Routine Gen Lab 12/24/2023 6:25 AM ADOPTION SPECIALIST DIFFERENTIAL AUTO Routine Gen Lab 12/24/2023 6:2 5 AM ADOPTION SPECIALIST COMPREHENSIVE METABOLIC PANEL WITHOUT GLUCOSE (OUTREACH) Routine Gen Lab 12/24/2023 6:25 AM ADOPTION SPECIALIST CBC WITH AUTO DIFFERENTIAL Routine Gen Lab 12/24/2023 6:25 AM ADOPTION SPECIALIST MAGNESIUM Routine Gen Lab 12/24/2023 6:25 AM ADOPTION SPECIALIST documented in this encounter Results * eGFR (12/24/2023 6:25 AM ADOPTION SPECIALIST) eGFR >90 >=60 mL/min/1. 73 m2 [facility] Comment: Interpretive Data Reference Interval Normal ?>/= [...] was last reviewed 2021. Testing performed by: [facility], [address] [place]., [address] Blood 12/24/2023 6:2 5 AM ADOPTION SPECIALIST 12/24/2023 12:51 PM ADOPTION SPECIALIST us Notinfile Unknown LAB BLOOD ORDERABLES Final Res ult [facility] Department [place] [address] * (ABNORMAL) Comprehensive metabolic panel, without glucose (Outreach) (12/24/2023 6:25 AM ADOPTION SPECIALIST) Sodium 141 135 - 145 mmol/L [facility] Comment:Testing performed by : [facility], [address] [place]., [address] Potassium, pl 3.6 3.3 - 4.9 mmol/L [facility] Comment:Testing performed by : [facility], [address] [place]., [address] Chloride 102 97 - 110 mmol/L [facility] Comment:Testing performed by : [facility], [address] [place]., [address] CO2 28 22 - 32 mmol/L [facility] Comment:Testing performed by : [facility], [address] [place]., [address] Anion gap 11 2 - 15 mmol/L [facility] Comment:Testing performed by : [facility], [address] [place]., [address] BUN 13 6 - 25 mg/dL [facility] Comment:Testing performed by : [facility], [address] [place]., [address] Creatinine 0.82 0.80 - 1.30 mg/dL [facility] Comment:Testing performed by : [facility], [address] [facility], [address] Calcium 9.2 8.5 - 10.3 mg/dL [facility] Comment:Testing performed by : [facility], [address] [facility], [address] Protein, pl 6.3(L) 6.5 - 8.5 g/dL [facility] Comment:Testing performed by : [facility], [address] [facility], [address] Albumin 3.2(L) 3.5 - 5.0 g/dL [facility] Comment:Testing performed by : [facility], [address] [facility], [address] Bilirubin, total 0.3 0.1 - 1.2 mg/dL [facility] Comment:Testing performed by : [facility], [address] [facility], [address] Alk phos 84 40 - 130 Units/L [facility] Comment:Testing performed by : [facility], [address] [place] [address], [id number] AST 21 10 - 50 Units/L [facility] Comment:Testing performed by : [facility], [address] [place] [address], [id number] ALT 25 7 - 55 Units/L [facility] Comment:Testing performed by : [facility], [address] [place] [address], [id number] Blood 12/24/2023 6:25 AM ADOPTION SPECIALIST 12/24/2023 12:45 PM ADOPTION SPECIALIST us Notinfile Unknown LAB BLOOD ORDERABLES Final Res ult [facility] Department [place] [address] * Magnesium (12/24/2023 6:25 AM ADOPTION SPECIALIST) Magnesium 2.2 1.4 - 2.5 mg/dL [facility] Comment:Testing performed by : [facility], [address] [place] [address]., [address] Blood 12/24/2023 6:25 AM ADOPTION SPECIALIST 12/24/2023 12:45 PM ADOPTION SPECIALIST us Notinfile Unknown LAB BLOOD ORDERABLES Final Res ult [facility] Department [place] [address] * CS GLUCOSE (12/24/2023 6:25 AM ADOPTION SPECIALIST) [facility] Glucose 91 70 - 199 mg/dL [facility] Comment: Interpretive Data Fasting glucose >/= [...] was last revised 2022. Testing performed by: [facility], [address] [place] [address]., [address] Blood 12/24/2023 6:25 AM ADOPTION SPECIALIST 12/24/2023 12:45 PM ADOPTION SPECIALIST us Notinfile Unknown LAB BLOOD ORDERABLES Final Res ult Performing Organization Address City/[facility]/ZIP Co de Phone Number [facility] Department [place] [address] * Differential, auto (12/24/2023 6:25 AM ADOPTION SPECIALIST) Neutrophil abs 2.3 1.5 - 6.5 K/cumm [facility] Comment:Testing performed by : [facility], [address] [place]., [address] Imm gran abs 0.0 0.0 - 0.1 K/cumm [facility] Comment:Testing performed by : [facility], [address] [place]., [address] Lymphocyte abs 1.5 0.8 - 3.3 K/cumm [facility] Comment:Testing performed by : [facility], [address] [place]., [address] Monocyte abs 0.4 0.2 - 0.8 K/cumm [facility] Comment:Testing performed by : [facility], [address] [place]., [address] Eosinophil abs 0.3 0.0 - 0.5 K/cumm [facility] Comment:Testing performed by : [facility], [address] [place]., [address] Basophil abs 0.0 0.0 - 0.1 K/cumm [facility] Comment:Testing performed by : [facility], [address] [place]., [address] Neutrophil pct 51.3 % [facility] Comment: Interpretive Data Percent cell count reference ranges are not reported, since discordance with absolute values may lead to misinterpretation of CBC data. Current Interpretive Data was last revised on 2018. Testing performed by: [facility], [address] [place]., [address] Imm gran pct 0.4 % [facility] Comment: Interpretive Data Percent cell count reference ranges are not reported, since discordance with absolute values may lead to misinterpretation of CBC data. Current Interpretive Data was last revised on 2018. Testing performed by: [facility], [address] [place] [address]., [address] Lymphocyte pct 32.4 % [facility] Comment: Interpretive Data Percent cell count reference ranges are not reported, since discordance with absolute values may lead to misinterpretation of CBC data. Current Interpretive Data was last revised on 2018. Testing performed by: [facility], [address] [place]., [address] Monocyte pct 9.0 % [facility] Comment: Interpretive Data Percent cell count reference ranges are not reported, since discordance with absolute values may lead to misinterpretation of CBC data. Current Interpretive Data was last revised on 2018. Testing performed by: [facility], [address] [place]., [address] Eosinophil pct 6.2 % [facility] Comment: Interpretive Data Percent cell count reference ranges are not reported, since discordance with absolute values may lead to misinterpretation of CBC data. Current Interpretive Data was last revised on 2018. Testing performed by: [facility], [address] [place]., [address] Basophil pct 0.7 % [facility] Comment: Interpretive Data Percent cell count reference ranges are not reported, since discordance with absolute values may lead to misinterpretation of CBC data. Current Interpretive Data was last revised on 2018. Testing performed by: [facility], [address] [place] [address]., [address] Blood 12/24/2023 6:25 AM ADOPTION SPECIALIST 12/24/2023 12:45 PM ADOPTION SPECIALIST us Notinfile Unknown LAB BLOOD ORDERABLES Final [facility] Department [place] [address] * (ABNORMAL) CBC with auto differential (12/24/2023 6:25 AM ADOPTION SPECIALIST) WBC 4.5 3.8 - 9.9 K/cumm [facility] Comment:Testing performed by : [facility], [address] [place] [address]., [address] Hgb 9.8(L) 13.0 - 17.5 g/dL [facility] Comment:Testing performed by : [facility], [address] [facility], [address] Hct 30.3(L) 38.9 - 50.3 % [facility] Comment:Testing performed by : [facility], [address] [facility], [address] Plt 224 150 - 400 K/cumm [facility] Comment:Testing performed by : [facility], [address] [facility], [address] MPV 11.4 9.1 - 12.3 fL [facility] Comment:Testing performed by : [facility], [address] [facility], [address] RBC 3.22(L) 4.30 - 5.80 M/cumm [facility] Comment:Testing performed by : [facility], [address] [facility], [address] MCV 94.1 81.3 - 96.4 fL [facility] Comment:Testing performed by : [facility], [address] [facility], [address] MCH 30.4 27.1 - 33.3 pg [facility] Comment:Testing performed by : [facility], [address] [facility], [address] MCHC 32.3 32.3 - 35.7 g/dL [facility] Comment:Testing performed by : [facility], [address] [facility], [address] RDW CV 14.5 11.1 - 14.9 % [facility] Comment:Testing performed by : [facility], [address] [facility], [address] RDW SD 50.5(H) 35.7 - 48.1 fL [facility] Comment:Testing performed by : [facility], [address] [facility], [address] NRBC abs 0.00 0.00 - 0.01 K/cumm [facility] Comment:Testing performed by : [facility], [address] [facility], [place]., [address] Blood 12/24/2023 6:25 AM ADOPTION SPECIALIST 12/24/2023 12:45 PM ADOPTION SPECIALIST us Notinfile Unknown LAB BLOOD ORDERABLES Final Res ult [facility] Department [place] [address] documented in this encounter Visit Diagnoses Not on filedocumented in this encounter Care Teams Pupil Personnel Services Director Relationship Specialty Start Date End Date Rl Medina DO [address] [place] [address] PCP - General 08/09/17 05/25/24 documented as of this encounter
--- OUTSIDE RECORDS SUMMARY | 2024-11-05 19:19 | XMS_ITS | Encounter Summary ---
Author Organization [facility] Address [address] [place] [address] Phone Care Team Providers Care Apparel Trimmings Sales Representative Name Role Phone Rl Medina DO Primary Care Provider Reason for Referral * Neurology (Routine) - Closed Specialty Diagnoses / Procedures Referred By Manisha gale Referred To Contact Diagnoses Seizures (HCC) Procedures Ambulatory EEG -[facility] (All Locations) Adri Lester MD Phone: tel: fax: [facility] (All Locations) Referral ID Status Reason Start Date Expiration Date Visits Re quested Visits Authorized [id number] Closed 02/05/2024 03/06/2025 1 1 Reason for Visit * Reason Comments New Patient * Consultation (Routine) - Closed Specialty Diagnoses / Procedures Referred By Manisha gale Referred To Contact Neurology Diagnoses Seizures, generalized convulsive (HCC) Marcial Vu Jr., MD [address] [facility] [address] [place] [address] Phone: tel: fax: [facility] Epilepsy [address] [facility] [address] [place] [address] [place] [address] Phone: tel: fax: Referral ID Status Reason Start Date Expiration Date V isits Requested Visits Authorized [id number] Closed Specialty Services Required 10/25/2023 11/23/2024 1 1 Encounter Details Date Type Department Care Team (Late st Contact Info) Description 02/05/2024 2:00 PM CDT Office Visit [facility] Epilepsy [address] [facility] [address] [place] [address] [place] [address] Jose Elias Osorio MD PhD [address] [place] [address] Seizures, generalized convulsive (HCC); Subdural hematoma (HCC); Seizures (HCC) Social History Tobacco Use Types Packs/Day Years Used Date Smoking Tobacco: Former Cigarettes 1 11 1 969 - 1979 Passive Smoke Exposure: Never Smokeless Tobacco: Never Alcohol Use Standard Drinks/Week Comments Yes 14 (1 standard drink = 0.6 oz pu re alcohol) social [facility] Utilities Answer Date Recorded In the past 12 months has [employer], gas, oil, or water [employer] threatened to shut off services in your [...] How often do you attend chur or catholic services? 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 Not on file Not on file documented as of this encounter Last Filed Vital Signs Vital Sign Reading Time Taken Comments Blood Pressure 112/74 02/05/2024 12:53 PM CDT Pulse 92 02/05/2024 12:53 PM CDT Temperature - - Respiratory Rate - - Oxygen Saturation - - Inhaled Oxygen Concentration - - Weight 81.6 kg (180 lb) 02/05/2024 12:53 PM CDT Height 172.7 cm (5' 8 ) 02/05/2024 12:53 PM CDT Body Mass Index 27.37 02/05/2024 12:53 PM CDT documented in this encounter Patient Instructions * Patient Instructions* Adri Lester MD - 02/05/2024 2:00 PM CDT Continue Keppra unchanged for now until March (or later if there is plan for surgical procedures beyond this point). After that, we will plan to obtain an ambulatory 24-hour EEG to look for any indication of abnormal discharges. Pending this result, we plan to wean Keppra gradually. documented in this encounter Progress Notes * Jose Elias Osorio MD PhD - 02/05/2024 2:00 PM CDT Images from the original note were not included. Patient Name: HIRA EVANS Date of (): 1950 Encounter Date: 02/05/2024 PCP: Rl Medina DO Provider: Jose Elias Osorio MD PhD Chief Complaint Hira Evans is a 73 y.o. year old right handed male who was referred by Carrie Jerez NP for a consult for seizures. HPI Hira Evans is a 73 y.o. man who was in his usual state of health until late 2022 at whichtime he developed lower back pain and left lower extremity weakness, and was ultimately diagnosed with lumbar radiculopathy. He sustained multiple falls as a result of this. He underwent laminectomy and fusion in late October 2023. His postoperative course was complicated by a possible seizure in the PACU. Specifically, he developed right gaze deviation and bilateral tonic clonic movements. Thiswas followed by a cardiac arrest requiring CPR. His recovery course was further complicated by a pulmonary embolism requiring anticoagulation and dorsal epidural and subdural hematoma resulting in bilateral lower extremity plegia. His seizure workup was notable for a head CT obtained shortly after his seizure like event that showed bilateral small subdural hematomas. A routine EEG after the event showed left hemisphere slowingwithout epileptiform discharges or seizures. On January 08, he was observed by SNF staff to have a brief event consisting of behavioral arrest, slumping over, that lasted for several seconds. The patient then returned to baseline immediately. Patient was maintained on several MORTUARY TECHNICIAN acting medications at that time for pain control (GBP). Patient continues to take Keppra 1gBID. At some point there was a plan made to taper his Keppra, but this was deferred after he had the spell on January 08. Workup: Head CT 10/23/2023: There are bilateral subdural hematomas along the cerebral convexities, likely subacute. The left hematoma measures approximately 2 mm, while the right measures approximately 1 mm. MRI brain epilepsy protocol WWO contrast 10/24/2023: 1. Thin bilateral convexity subdural hematomas, not significantly changed in size compared to the prior head CT. 2. Diffuse pachymeningeal thickening and enhancement likely related to recent lumbar surgery. 3. No MR evidence of abnormalities of neuronal migration. Routine EEG 10/24/2023: left hemisphere slowing, and moderate generalized slowing of the background. Focal slowing indicates focal cerebral dysfunction. Allergies: Patient has no known allergies. Medications: Current Outpatient Medications: acetaminophen (TYLENOL) 500 mg tablet, Take 1 tablet (500 mg total) by mouth every 6 (six) hours asneeded for pain, Disp: 30 tablet, Rfl: 0 acyclovir (ZOVIRAX) 400 mg tablet, Take 1 tablet (400 mg total) by mouth 2 (two) times a day, Disp:, Rfl: ryfkfgto-dhpynwina-hnijkoj HMB 7-7-1.5 gram powder in packet, Take by mouth, Disp: , Rfl: bisacodyL (DULCOLAX) 10 mg suppository, Insert 1 suppository (10 mg total) into the rectum daily asneeded for constipation (Patient taking differently: Insert 1 suppository (10 mg total) into the rectum nightly), Disp: , Rfl: cholecalciferol (VITAMIN D-3) 5,000 unit capsule, Take 1 capsule (5,000 Units total) by mouth everymorning, Disp: , Rfl: cyclobenzaprine (FLEXERIL) 5 mg tablet, Take 1 tablet (5 mg total) by mouth 3 (three) times a day as needed for muscle spasms, Disp: , Rfl: DILT-XR 240 mg 24 hr capsule, Take 1 capsule (240 mg total) by mouth 2 (two) times a day, Disp: , Rfl: furosemide (LASIX) 40 mg tablet, Take 1 tablet (40 mg total) by mouth 2 (two) times a day (Patient taking differently: Take 1 tablet (40 mg total) by mouth 2 (two) times a day), Disp: , Rfl: gabapentin (NEURONTIN) 600 mg tablet, Take 1 tablet (600 mg total) by mouth 3 (three) times a day, Disp: , Rfl: hydroCHLOROthiazide (HYDRODIURIL) 12.5 mg tablet, , Disp: , Rfl: levETIRAcetam (KEPPRA) 1,000 mg tablet, Take 1 tablet (1,000 mg total) by mouth 2 (two) times a day(Patient taking differently: Take 1 tablet (1,000 mg total) by mouth 2 (two) times a day), Disp: , Rfl: metOLazone (ZAROXOLYN) 5 mg tablet, Take 1 tablet (5 mg total) by mouth daily, Disp: , Rfl: miconazole 2 % powder, Apply topically 2 (two) times a day (Patient taking differently: Apply topically 2 (two) times a day), Disp: , Rfl: Mounjaro 10 mg/0.5 mL pen injector, , Disp: , Rfl: multivitamin tablet, Take 1 tablet by mouth, Disp: , Rfl: pantoprazole DR (PROTONIX) 40 mg EC tablet, Take 1 tablet (40 mg total) by mouth daily (Patient taking differently: Take 1 tablet (40 mg total) by mouth every morning), Disp: , Rfl: potassium chloride ER 20 mEq CR tablet, , Disp: , Rfl: senna-docusate (PERICOLACE) 8.6-50 mg, Take 1 tablet by mouth nightly (Patient taking differently: Take 1 tablet by mouth nightly), Disp: , Rfl: tamsulosin (FLOMAX) 0.4 mg extended release capsule, Take 2 capsules (0.8 mg total) by mouth daily with dinner (Patient taking differently: Take 2 capsules (0.8 mg total) by mouth nightly 2 tablets),Disp: , Rfl: ascorbic acid (VITAMIN C ORAL), Take 1 tablet by mouth 2 (two) times a day (Patient not taking: Reported on 02/05/2024), Disp: , Rfl: guaiFENesin (ROBITUSSIN) syrup 100 mg/5 mL, Take 10 mL (200 mg total) by mouth 4 (four) times a dayas needed for cough (Patient not taking: Reported on 01/07/2024), Disp: , Rfl: oxyCODONE (ROXICODONE) 5 mg immediate release tablet, Take 1 tablet (5 mg total) by mouth every 4 (four) hours as needed for pain for up to 5 doses (Patient not taking: Reported on 01/07/2024), Disp: 5tablet, Rfl: 0 ramelteon (ROZEREM) 8 mg tablet, Take 1 tablet (8 mg total) by mouth nightly (Patient not taking: Reported on 01/07/2024), Disp: , Rfl: zolpidem (AMBIEN) 5 mg tablet, Take 1 tablet (5 mg total) by mouth nightly as needed for sleep (Patient not taking: Reported on 02/05/2024), Disp: , Rfl: No current facility-administered medications for this visit. Problems: Seizures, generalized convulsive (HCC) Subdural hematoma (HCC) Seizures (HCC) Past Medical History: He has a past medical history of Allergic rhinitis, Arthritis, Cancer (CMS/HCC) (HCC) (prostate andmelonomia), Cauda equina compression (HCC), DVT (deep venous thrombosis) (CMS/HCC) (HCC), Gastric reflux, GERD (gastroesophageal reflux disease), History of melanoma, Hypertension, Kidney stone, Paraspinal hematoma (11/29/2023), Personal history of prostate cancer, Pneumonia, Pulmonary embolism ([facility]), and Seasonal allergies. He has no past medical history of Acute respiratory failure requiring reintubation (CMS/HCC) ([facility]),Awareness under anesthesia, Delayed emergence from general anesthesia, Hard to intubate, Malignant hyperthermia, Motion sickness, Pneumothorax, PONV (postoperative nausea and vomiting), Postoperativedelirium, Pseudocholinesterase deficiency, Sleep apnea, or Spinal headache. Past Surgical History: He has a past surgical history that includes Prostatectomy (2008); Melanoma Resection (Right, 2006); Replacement total knee (Right, 2014); Revision total knee arthroplasty (Right, 09/30/2019); Replacement total knee (Left, 10/17/2021); Vasectomy; FL Upper GI Air Contrast W KUB (Left, 09/21/2023); IR Percutaneous Nephrostomy Left (Left, 10/14/2023); IR Insert Vena Cava Filter (N/A, 11/09/2023); Cystoscopy (10/13/2023); cystoscopy (Left, 10/18/2023); Thoracic laminectomy (11/08/2023); Lumbar laminectomy (10/23/2023); Cystostomy w/ bladder biopsy (11/2022); IR Percutaneous Nephrostomy Left (Left, 12/26/2023); and IR Nephrostomy Catheter Change Left (Left, 02/05/2024). Social History: He reports that he quit smoking about 44 years ago. His smoking use included cigarettes. He startedsmoking about 55 years ago. He has a 11 pack-year smoking history. He has never been exposed to tobacco smoke. He has never used smokeless tobacco. He reports current drug use. Frequency: 2.00 times per week. Drug: Medical marijuana. Patient reports consuming alcoholic drinks , with a daily consumption of drinks. Patient also reports less than monthly consumption of 6 or more alcoholic drinks at one occasion. Family History: Hisfamily history includes Alcohol abuse in his father; Cancer in his father and another family member; Heart disease in his mother and another family member; Lung disease in his mother. Review of Systems Review of systems per HPI and otherwise all systems are negative Vital Signs Vitals: 02/05/24 1253 BP: 112/74 BP Location: Left arm Patient Position: Sitting Pulse: 92 Weight: 81.6 kg (180 lb) Height: 172.7 cm (5' 8 ) Physical Exam General: The patient appeared well developed, well nourished and well groomed. Neurological Exam: Mental Status: The patient was awake, alert and oriented. The patient had fluent speech and followed commands. Attention was normal. Affect and mood were normal. Cranial Nerves: Extraocular muscles were full. There was no nystagmus. Facial strength was normal and symmetric. Facial expression was normal. There was no dysphonia. There was no dysarthria. Motor Examination: Muscle bulk was normal. Tone was normal. Full strength at the bilateral upper extremities. 0/5 strength at the bilateral lower extremities in all muscle groups. There was no tremor. Sensation: SILT. Gait: Non-ambulatory. Assessment: Hira Evans is a 73 y.o. man who presents for evaluation and management of possible seizures. The event that occurred in the PACU does sound concerning for a seizure based on the documented description, including gaze deviation and bilateral clonic movements. The event was provoked by a recent major surgery and subdural hematoma identified on subsequent head imaging. The spell that occurred on January 08 [...] Ambulatory 24 hour EEG in mid March I have seen and examined the patient on 02/05/2024 . I agree with the findings and plan of care as documented in Dr. Lester's note. The patient had two episodes, the first in the setting of a SDH suggestive of a provoked event and the second occurred in the setting of multiple MORTUARY TECHNICIAN active medications and had atypical features. We discussed weaning Keppra as previously planned after he has completed his scheduled surgery. We will obtain an ambulatory EEG prior to weaning. Jose Elias Osorio MD PhD Professor of Neurology documented in this encounter Plan of Treatment Not on file documented as of this encounter Results * Ambulatory EEG -[facility] (All Locations) (04/09/2024 11:05 AM CDT) Anatomical Region Laterality Modality EEG Narrative 04/09/2024 4:21 PM CDT Ambulatory EEG Report Patient Name: Hira Evans [facility] Medical Record Number (MRN): [id number] [facility] Record: [id number] Date of (): 1950 EEG Date: 04/08/2024 [...] 24 channel EEG recording acquired on a [employer] digital ambulatory EEG acquisition system. Scalp electrodes [...] documented in this encounter Visit Diagnoses Diagnosis Seizures, generalized convulsive (HCC) Subdural hematoma (HCC) Subdural hemorrhage Seizures (HCC) Other convulsions Seizures (HCC) Other convulsions documented in this encounter Historical Medications * This list may reflect changes made after this encounter. Mounjaro 10 mg/0.5 mL pen injector 12/27/2023 potassium chloride ER 20 mEq CR tabletIndication s:supplement Take 1 tablet (20 mEq total) by mouth game designer/creative director before breakfast 01/22/2024 hydroCHLOROthiaz adele (HYDRODIURIL) 12.5 mg tablet 01/21/2024 4 added in this encounter Orders Outpatient Referral Count Last Ordered Date Fir st Ordered Date AMB REFERRAL TO NEUROLOGY 2 02/05/2024 documented in this encounter Care Teams Apparel Trimmings Sales Representative Relationship Specialty Start Date End Date Rl Medina DO [address] [place] [address] PCP - General 08/09/17 05/25/24 documented as of this encounter
--- OUTSIDE RECORDS SUMMARY | 2024-11-05 19:19 | XMS_ITS | Encounter Summary ---
Author Organization [facility] Address [address] [place] [address] Phone Care Team Providers Care Tank Car Mechanic Name Role Phone Rl Medina DO Primary Care Provider Reason for Referral * Consultation (Routine) - Closed Specialty Diagnoses / Procedures Referred By Manisha gale Referred To Contact Neurology Diagnoses Subdural hematoma (HCC) Seizures (HCC) Carrie Jerez NP [address] [place] [address] Phone: tel: fax: [facility] Epilepsy [address] [facility] [address] [place] [address] [place] [address] Phone: tel: fax: Referral ID Status Reason Start Date Expiration Date V isits Requested Visits Authorized [id number] Closed Specialty Services Required 01/10/2024 02/08/2025 1 1 Question Answer Please select the performing region: [facility] (All Locations) [167] # of visits: 1 Comments EPILEPSY Please call pt to schedule AURANT MGR Encounter Details Date Type Department Care Team (Late st Contact Info) Description 01/10/[address] [facility] Neurosurgery [address] [facility] [address] [place] [address] Carrie Jerez CARLA [address] [place] [address] Subdural hematoma (HCC) (Primary Dx); Seizures (HCC) Social History Tobacco Use Types Packs/Day Years Used Date Smoking Tobacco: Former Cigarettes 1 11 1 969 - 1979 Passive Smoke Exposure: Never Smokeless Tobacco: Never Alcohol Use Standard Drinks/Week Comments Yes 14 (1 standard drink = 0.6 oz pu re alcohol) social [facility] Utilities Answer Date Recorded In the past 12 months has [employer], gas, oil, or water [employer] threatened to shut off services in your [...] week 12/27/2023 How often do you attend [facility] or presybeterian services? Never 12/27/2023 Do you belong to [...] place to sleep or slept in a group home (including now)? No 12/27/2023 Personal Safety Answer Date Recorded Have you ever been in or are you currently in a harmful physical or emotional relationship or is someone making you feel afraid or unsafe? 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 Not on file Not on file documented as of this encounter Plan of Treatment Scheduled Referrals Name Type Priority Associated Diagnoses Order Schedule Ambulatory referral to Neurology Outpatient Referral Routine Subdural hematoma (HCC) Seizures (HCC) Expected: 01/11/2024 (Approximate), Expires: 01/09/2025 documented as of this encounter Visit Diagnoses Diagnosis Subdural hematoma (HCC)- Primary Subdural hemorrhage Seizures (HCC) Other convulsions documented in this encounter Care Teams Tank Car Mechanic Relationship Specialty Start Date End Date Rl Medina DO [address] [place] [address] PCP - General 08/09/17 05/25/24 documented as of this encounter
--- OUTSIDE RECORDS SUMMARY | 2024-11-05 19:19 | XMS_ITS | Encounter Summary ---
Author Organization [facility] Address [address] [place] [address] Phone Care Team Providers Care Cable Weaver Name Role Phone Rl Medina DO Primary Care Provider Encounter Details Date Type Department Care Team (Late st Contact Info) Description 01/09/[address] [facility] Orthopaedic Surgery [address] [facility] [address] 6th [place] [address] [place] [address] Marcial Vu Jr., MD [address] [place] [address] Social History Tobacco Use Types Packs/Day Years Used Date Smoking Tobacco: Former Cigarettes 1 11 969 - 1979 Passive Smoke Exposure: Never Smokeless Tobacco: Never Alcohol Use Standard Drinks/Week Comments Yes 14 (1 standard drink = 0.6 oz pu re alcohol) social [facility] Utilities Answer Date Recorded In the past 12 months has [employer], gas, oil, or water [employer] threatened to shut off services in your [...] any clubs o r organizations such as synagogue groups, unions, fraternal or athletic groups, or [...] on file 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 Pt never scheduled for an appt since he has been in and out of the hospital/ rehab. Spoke with Kasandra in scheduling at [facility] hematology requesting this pt becontacted to schedule clinic appt to further discuss DVT prophylaxis in relation to IVC filter and anticoagulation. Recommended Kasandra contact pt's and EC, Val, since pt is currently [facility] facility. Kasandra in agreement with plan. Will f/u to ensure pt is scheduled. D NATURALIST documented in this encounter Plan of Treatment Not on file documented as of this encounter Visit Diagnoses Not on filedocumented in this encounter Care Teams Cable Weaver Relationship Specialty Start Date End Date Rl Medina DO [address] [place] [address] PCP - General 08/09/17 05/25/24 documented as of this encounter
--- OUTSIDE RECORDS SUMMARY | 2024-11-05 19:19 | XMS_ITS | Encounter Summary ---
Author Organization [facility] Address [address] [place] [address] Care Team Providers Care Senior Ecologist Name Role Phone Rl Medina DO Primary Care Provider Reason for Referral * Diagnostic Imaging (Routine) - Closed Specialty Diagnoses / Procedures Referred By Manisha t Referred To Contact Radiology Diagnoses Hydronephrosis with urinary obstruction due to renal calculus Procedures IR Nephrostomy Catheter Change Left Dennis Albarado MD [address] [place] [address] Phone: tel: fax: [address] [address] Referral ID Status Reason Start Date Expiration Date Visits Re quested Visits Authorized [id number] Closed 12/26/2023 01/24/2025 1 1 FITTER SUPERVISOR MAINTENANCE Encounter Details Date Type Department Care Team (Late st Contact Info) Description 12/26/2023 Orders Only Radiology [address] [place] [address] Dennis Albarado MD [address] [place] [address] Hydronephrosis with urinary obstruction due to renal [...] often do you attend chur ch or adventism services? 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 PLAN: ??The patient will return in 6 weeks for the next catheter change. Electronically signed by: Delisa Stoner PA-C Narrative 02/05/2024 1:35 PM CDT EXAMINATION: ??LEFT NEPHROSTOMY CATHETER EXCHANGE HISTORY/INDICATION: ??73 year old male with history of left ureteral stone disease initially managed with ureteral stent placed by urology, presented recently for ureteral stent evaluation and stone removal. 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 ??IR was consulted for percutaneous nephrostomy tube placement and he underwent left nephrostomy tube placement on 12/26/23 with a 10 Fr [place] catheter. There was discussion regarding possible conversion to a PCNU today, however, the patient has not been NPO and does not wish to attempt conversion without sedation. Therefore, will proceed with left routine PCN exchange. PROVIDER PRESENCE: Delisa Stoner PA-C was present from the beginning to the end of the procedure. ??Tamia Rojas MD, was also present for the procedure. SEDATION: ??local only TECHNIQUE: ??The risks, benefits and alternatives were discussed. Prior to beginning the procedure, [place] Protocol was performed to confirm the patient's identity and the planned procedure. The fluoroscopy time has been recorded in the electronic medical record. Maximum sterile barriers including cap, mask, hand hygiene, sterile gloves, sterile gown, large sterile drape and 2% chlorhexidine for cutaneous antisepsis were used. The skin surrounding the existing left nephrostomy catheter was sterilely prepped and draped. ??The skin was then infiltrated with 1% lidocaine. ??Under fluoroscopic guidance, the catheter was exchanged over wire for a new 10 Fr [place] catheter with appropriate catheter tip positioning in the renal pelvis documented by fluoroscopy following the injection of a small amount of contrast. There was no significant encrustation of the removed catheter. The new catheter was secured in place with a single stitch of 0-Prolene and a sterile dressing was applied. ESTIMATED BLOOD LOSS: Minimal. CONDITION: Stable DISCHARGED TO: ??recovery and then home FINDINGS: ??Final images show the left nephrostomy catheter in appropriate position. Procedure Note Delisa Stoner PA - 02/05/2024 EXAMINATION: LEFT NEPHROSTOMY CATHETER EXCHANGE HISTORY/INDICATION: 73 year old male with history of left ureteral stone disease initially managed with ureteral stent placed by urology, presented recently for ureteral stent evaluation and stone removal. 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 IR was consulted for percutaneous nephrostomy tube placement and he underwent left nephrostomy tube placement on 12/26/23 with a 10 Fr [place] catheter. There was discussion regarding possible conversion to a PCNU today, however, the patient has not been NPO and does not wish to attempt conversion without sedation. Therefore, will proceed with left routine PCN exchange. PROVIDER PRESENCE: Delisa Stoner PA-C was present from the beginning to the end of the procedure. Tamia Rojas MD, was also present for the procedure. SEDATION: local only TECHNIQUE: The risks, benefits and alternatives were discussed. Prior to beginning the procedure, N[place]omo Protocol was performed to confirm the patient's identity and the planned procedure. The fluoroscopy time has been recorded in the electronic medical record. Maximum sterile barriers including cap, mask, hand hygiene, sterile gloves, sterile gown, large sterile drape and 2% chlorhexidine for cutaneous antisepsis were used. The skin surrounding the existing left nephrostomy catheter was sterilely prepped and draped. The skin was then infiltrated with 1% lidocaine. Under fluoroscopic guidance, the catheter was exchanged over wire for a new 10 Fr [place] catheter with appropriate catheter tip positioning in the renal pelvis documented by fluoroscopy following the injection of a small amount of contrast. There was no significant encrustation of the removed catheter. The new catheter was secured in place with a single stitch of 0-Prolene and a sterile dressing was applied. ESTIMATED BLOOD LOSS: Minimal. CONDITION: Stable DISCHARGED TO: recovery and then home FINDINGS: Final images show the left nephrostomy catheter in appropriate position. IMPRESSION: Successful left nephrostomy catheter exchange. PLAN: The patient will return in 6 weeks for the next catheter change. Electronically signed by: Delisa Stoner PA-C Dennis Albarado MD IMG IR PROCEDURES Final R esult documented in this encounter Visit Diagnoses Diagnosis Hydronephrosis with urinary obstruction due to renal calculus- Primary Hydronephrosis with urinary obstruction due to renal calculus documented in this encounter Care Teams Senior Ecologist Relationship Specialty Start Date End Date Rl Medina DO [address] [place] [address] PCP - General 08/09/17 05/25/24 documented as of this encounter
--- OUTSIDE RECORDS SUMMARY | 2024-11-05 19:19 | XMS_ITS | Encounter Summary ---
Author Organization [facility] Address [address] [place] [address] Phone Care Team Providers Care Heavy Duty Mechanic Farm Equipment Name Role Phone Rl Medina DO Primary Care Provider Reason for Referral * Diagnostic Imaging (Routine) - Closed Specialty Diagnoses / Procedures Referred By Contac t Referred To Contact Diagnoses S/P laminectomy with spinal fusion Procedures XR Spine Thoracic 2 Views Marcial Vu Jr., MD [address], [place] [address] Phone: tel: fax: [facility] Radiology [address] [place] [phone] Phone: tel: Referral ID Status Reason Start Date Expiration Date Visits Re quested Visits Authorized [id number] Closed 02/07/2024 03/08/2025 1 1 * Diagnostic Imaging (Routine) - Closed Specialty Diagnoses / Procedures Referred By Contac t Referred To Contact Diagnoses S/P laminectomy with spinal fusion Procedures XR Spine Lumbar 2 or 3 Views Marcial Vu Jr., MD [address] [place] [address] Phone: tel: fax: [facility] [address] [facility] [facility] [address] [place] [address] Phone: tel: Referral ID Status Reason Start Date Expiration Date Visits Re quested Visits Authorized [id number] Closed 02/07/2024 03/08/2025 1 1 Reason for Visit * Reason Comments Return Patient Encounter Details Date Type Department Care Team (Late st Contact Info) Description 02/07/2024 8:00 AM CDT Office Visit [facility] Orthopaedic Surgery [address] [facility] [address] [place] [address] Marcial Vu Jr., MD [address] [facility] [address] [place] [address] S/P laminectomy with spinal fusion (Primary Dx) Social History Tobacco Use Types Packs/Day Years Used Date Smoking Tobacco: Former Cigarettes 1 11 1 969 1979 Passive Smoke Exposure: Never Smokeless Tobacco: Never Alcohol Use Standard Drinks/Week Comments Yes 14 (1 standard drink = 0.6 oz pu re alcohol) social [facility] Utilities Answer Date Recorded In the past 12 months has [employer], gas, oil, or water [employer] threatened to shut off services in your [...] on file 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 Dr. Vu has recommended the following treatment: -Follow up in 6 weeks -We will try to move up your hematology appointment if possible Please contact Galina Franco RN, BSN at [phone] or through [facility] if you have any further questions or concerns. Important Phone Numbers: Galina Franco, Nurse Coordinator to Dr. Vu: [phone] Appointment Line: [phone] For medical emergencies, please call 911. documented in this encounter Progress Notes * Marcial Vu Jr., MD - 02/07/2024 8:00 AM CDT Images from the original note were not included. Postoperative Patient Visit Interim History Mr. Evans follows up today for routine postoperative visit with his , Val. He is status post: 10/23/2023: L4-L5 posterior [...] and lumbar epidural hematoma and durotomy. He remains at a correction facility. He was hospitalized in early January for hypokalemia but has since been discharged. His blood thinners have been discontinued. He does not feel that he is regaining any motor function in his lower extremities. He noted increased swelling in his lower extremities within the past few days and bilateral lower extremity venous duplexes were obtained, showing bilateral lower extremity DVTs. IVC filter remains in place. Physical Examination He is sitting in his wheelchair in no apparent distress. Posterior thoracolumbar incision is well healed. He has 5/5 strength and intact sensation to light touch throughout bilateral upper extremities. He is unable to demonstrate any motor function throughout bilateral lower extremities. He has intact sensation to light touch throughout bilateral lower extremities. Lower extremity compressive wraps are in place bilaterally. PROMIS Scores 11/08/2021 02/07/2022 09/13/2023 10/08/2023 01/07/2024 02/07/2024 PROMIS Mobility V1.2 41.4 46.2 Pain Interference 59.1 48.5 66.9 73.7 56 56 Physical Function V2.0 36.4 48.5 28.6 26.7 18.5 26.7 Anxiety V1.0 54.9 49 60.5 57.2 56.5 51.2 Depression 51.2 48.1 48.1 46.1 49.4 51.2 Review of Plain Radiographs/Studies My independent interpretation [...] no change in alignment compared to prior. I have read a bilateral lower extremity venous duplex scan report which was performed at an outsidefacility on 02/06/2024. It is consistent with bilateral lower extremity deep venous thrombosis. Impression/Diagnosis 73-year-old male who is 3.5 months status post L4-L5 decompression and fusion [...] after the 2nd surgery. He is now 3 months status post thoracolumbar decompression. He remains in a correction facility and has recurrent bilateral lower extremity DVTs. He is not on anticoagulation currently. Treatment Plan We are going to touch base with his correction facility about anticoagulation given his recurrent lower extremity DVTs. We are also going to be in contact with Hematology regarding a plan for anticoagulation and the IVC filter currently and over the skilled nursing. He will continue compressive lower extremity wraps in the meantime. He will also continue to work with PT and OT on strengthening andmobilization. I will see him back in 6 weeks with repeat x- rays AP and lateral of the thoracic and lumbar spine, or earlier if any issues arise. All of his questions and his 's questions were answered. They are understanding and in agreement. Marcial Vu Jr., MD [facility] Department of Orthopaedic Surgery Division of Spine Surgery [facility] [place] [facility] done by [employer]; therefore, variances and inaccuracies may occur. I reviewed the patient problem list pertinent to the visit today, but the entire patient problem list was not reviewed today. Total time spent on this patient visit today was 40 minutes dedicated to chart review, independent imaging review, patient evaluation, examination, counseling and education, and coordination of care. documented in this encounter Plan of Treatment Scheduled Orders Name Type Priority Associated Diagnoses Orde r Schedule XR Scoliosis Ap and Lateral Imaging Schedule Routine, Read Routine (OP Routine) S/P laminectomy with spinal fusion Expected: 02/07/2024, Expires: 01/31/2025 documented as of this encounter Results * XR Spine Thoracic 2 Views (02/07/2024 8:40 AM CDT) Anatomical Region Laterality Modality Spine N/A Computed Radiogr aphy 02/07/2024 8:51 AM CDT Impressions 02/07/2024 8:51 AM CDT 1. ??L4-L5 posterior instrumented fusion with interbody fusion is unchanged. 2. ??Mild to moderate multilevel degenerative disc disease of the unfused thoracic and lumbar spine with findings of diffuse idiopathic skeletal hyperostosis. Electronically signed by: Javad Mortensen MD Narrative 02/07/2024 8:51 AM CDT EXAMINATION: XR SPINE LUMBAR 2 OR 3 VIEWS, XR SPINE THORACIC 2 VIEWS HISTORY: ??Laminectomy with spinal fusion. FINDINGS: 2 views of the thoracic spine and 2 views of the lumbar spine are submitted with comparison 02/26. There is exaggeration of the thoracic kyphosis. ??Superior thoracic spine is not well evaluated on lateral view due to overlapping tissues. ??There is mild to moderate multilevel degenerative disc disease of the thoracic spine with anterior bridging osteophytes consistent with diffuse idiopathic skeletal hyperostosis. ??No definite new vertebral body height loss. L4-L5 posterior spinal instrumented fusion with discectomy and interbody fusion. ??Instrumentation is intact. ??Mild to moderate degenerative disc disease of the unfused levels, unchanged. ??Anterior bridging osteophytes along the lumbar spine. ??No new lumbar vertebral body height loss. ??Inferior vena cava filter. ??Left nephroureteral stent.. Procedure Note Javad Mortensen MD - 02/07/2024 EXAMINATION: XR SPINE LUMBAR 2 OR 3 VIEWS, XR SPINE THORACIC 2 VIEWS HISTORY: Laminectomy with spinal fusion. FINDINGS: 2 views of the thoracic spine and 2 views of the lumbar spine are submitted with comparison 02/26. There is exaggeration of the thoracic kyphosis. Superior thoracic spine is not well evaluated on lateral view due to overlapping tissues. There is mild to moderate multilevel degenerative disc disease of the thoracic spine with anterior bridging osteophytes consistent with diffuse idiopathic skeletal hyperostosis. No definite new vertebral body height loss. L4-L5 posterior spinal instrumented fusion with discectomy and interbody fusion. Instrumentation is intact. Mild to moderate degenerative disc disease of the unfused levels, unchanged. Anterior bridging osteophytes along the lumbar spine. No new lumbar vertebral body height loss. Inferior vena cava filter. Left nephroureteral stent.. IMPRESSION: 1. L4-L5 posterior instrumented fusion with interbody fusion is unchanged. 2. Mild to moderate multilevel degenerative disc disease of the unfused thoracic and lumbar spine with findings of diffuse idiopathic skeletal hyperostosis. Electronically signed by: Javad Mortensen MD Marcial Vu Jr., MD IMG XR PROCEDURES F inal Result * XR Spine Lumbar 2 or 3 Views (02/07/2024 8:40 AM CDT) Anatomical Region Laterality Modality Spine N/A Computed Radiogr aphy 02/07/2024 8:51 AM CDT Impressions 02/07/2024 8:51 AM CDT 1. ??L4-L5 posterior instrumented fusion with interbody fusion is unchanged. 2. ??Mild to moderate multilevel degenerative disc disease of the unfused thoracic and lumbar spine with findings of diffuse idiopathic skeletal hyperostosis. Electronically signed by: Javad Mortensen MD Narrative 02/07/2024 8:51 AM CDT EXAMINATION: XR SPINE LUMBAR 2 OR 3 VIEWS, XR SPINE THORACIC 2 VIEWS HISTORY: ??Laminectomy with spinal fusion. FINDINGS: 2 views of the thoracic spine and 2 views of the lumbar spine are submitted with comparison 02/26. There is exaggeration of the thoracic kyphosis. ??Superior thoracic spine is not well evaluated on lateral view due to overlapping tissues. ??There is mild to moderate multilevel degenerative disc disease of the thoracic spine with anterior bridging osteophytes consistent with diffuse idiopathic skeletal hyperostosis. ??No definite new vertebral body height loss. L4-L5 posterior spinal instrumented fusion with discectomy and interbody fusion. ??Instrumentation is intact. ??Mild to moderate degenerative disc disease of the unfused levels, unchanged. ??Anterior bridging osteophytes along the lumbar spine. ??No new lumbar vertebral body height loss. ??Inferior vena cava filter. ??Left nephroureteral stent.. Procedure Note Javad Mortensen MD - 02/07/2024 EXAMINATION: XR SPINE LUMBAR 2 OR 3 VIEWS, XR SPINE THORACIC 2 VIEWS HISTORY: Laminectomy with spinal fusion. FINDINGS: 2 views of the thoracic spine and 2 views of the lumbar spine are submitted with comparison 02/26. There is exaggeration of the thoracic kyphosis. Superior thoracic spine is not well evaluated on lateral view due to overlapping tissues. There is mild to moderate multilevel degenerative disc disease of the thoracic spine with anterior bridging osteophytes consistent with diffuse idiopathic skeletal hyperostosis. No definite new vertebral body height loss. L4-L5 posterior spinal instrumented fusion with discectomy and interbody fusion. Instrumentation is intact. Mild to moderate degenerative disc disease of the unfused levels, unchanged. Anterior bridging osteophytes along the lumbar spine. No new lumbar vertebral body height loss. Inferior vena cava filter. Left nephroureteral stent.. IMPRESSION: 1. L4-L5 posterior instrumented fusion with interbody fusion is unchanged. 2. Mild to moderate multilevel degenerative disc disease of the unfused thoracic and lumbar spine with findings of diffuse idiopathic skeletal hyperostosis. Electronically signed by: Javad Mortensen MD Marcial Vu Jr., MD IMG XR PROCEDURES F inal Result documented in this encounter Visit Diagnoses Diagnosis S/P laminectomy with spinal fusion- Primary Arthrodesis status S/P laminectomy with spinal fusion Arthrodesis status documented in this encounter Discontinued Medications Medication Sig Discontinue Reason Start Date End Da te DILT-XR 240 mg 24 hr capsuleIndications:hyper tension Take 1 capsule (240 mg total) by mouth 2 (two) times a day 12/10/2023 02/07/2024 documented as of this encounter Historical Medications * This list may reflect changes made after this encounter. ondansetron ODT (ZOFRAN-ODT) 4 mg disintegrating tablet Take 1 tablet (4 mg total) by mouth every 8 (eight) hours as needed for vomiting or nausea 01/10/2024 eszopiclone (LUNESTA) 3 mg tabletIndications:In somnia Take 1 mg by mouth nightly 01/19/2024 4 dilTIAZem CD 120 mg 24 hr capsuleIndications:h ypertension Take 1 capsule (120 mg total) by mouth 2 (two) times a day 01/19/2024 4 added in this encounter Care Teams Heavy Duty Mechanic Farm Equipment Relationship Specialty Start Date End Date Rl Medina DO [address] [place] [address] PCP - General 08/09/17 05/25/24 documented as of this encounter
--- OUTSIDE RECORDS SUMMARY | 2024-11-05 19:19 | XMS_ITS | Encounter Summary ---
Author Organization [facility] Address [address] [place] [address] Phone Care Team Providers Care Electromedical Equipment Repairer Name Role Phone Rl Medina DO Primary Care Provider Encounter Details Date Type Department Care Team (Late st Contact Info) Description 02/13/2024 Telephone [facility] Hematology [address] [facility] 7th [place] [address] [place] [address] Oneyda Kaur RN Social History Tobacco Use Types Packs/Day Years Used Date Smoking Tobacco: Former Cigarettes 1 11 969 - 1979 Passive Smoke Exposure: Never Smokeless Tobacco: Never Alcohol Use Standard Drinks/Week Comments Yes 14 (1 standard drink = 0.6 oz pu re alcohol) social [employer] Utilities Answer Date Recorded In the past 12 months has [employer], gas, oil, or water [employer] threatened to shut off services in your [...] often do you attend chur ch or mandaeism services? 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 Patient restarted on anticoagulation by nursing facility. Spoke with Jairo MACKEY at nursing facility patient resides in. She stated pt had doppler on 02/05 thatshowed bilateral DVTs, unsure if they were noted to be acute or chronic as she does not have the report. Pt started on Xarelto 15 mg BID for 21 days starting 02/06. Once complete, he will start [id number] mg daily. Confirmed with her he has hematology appointment on 04/11. He will remain on anticoagulat ion until his visit. documented in this encounter Plan of Treatment Not on file documented as of this encounter Visit Diagnoses Not on filedocumented in this encounter Care Teams Electromedical Equipment Repairer Relationship Specialty Start Date End Date Rl Medina DO [address] [place] [address] PCP - General 08/09/17 05/25/24 documented as of this encounter
--- OUTSIDE RECORDS SUMMARY | 2024-11-05 19:19 | XMS_ITS | Encounter Summary ---
Author Organization [facility] Address [address] [place] [address] Phone Care Team Providers Care Bandoleer Packer Name Role Phone Rl Medina DO Primary Care Provider Encounter Details Date Type Department Care Team (Late st Contact Info) Description 03/05/2024 Telephone [facility] [address] [place] [address] Luciana Chaves CMA Social History Tobacco Use Types Packs/Day Years Used Date Smoking Tobacco: Former Cigarettes 1 09 05 969 - 1979 Passive Smoke Exposure: Never Smokeless Tobacco: Never Alcohol Use Standard Drinks/Week Comments Yes 14 (1 standard drink = 0.6 oz pu re alcohol) social [facility] Utilities Answer Date Recorded In the past 12 months has [employer], gas, oil, or water [employer] threatened to shut off services in your [...] often do you attend chur ch or synagogue services? 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 Not on file Not on file documented as of this encounter Miscellaneous Notes * Telephone Encounter - Luciana Chaves CMA - 03/05/2024 9:16 AM CDT Date: 03/05/2024 Reason for Call: schedule surgery Patient Provider: [facility] Information: Outcome/Plan: left message to call back documented in this encounter Plan of Treatment Not on file documented as of this encounter Visit Diagnoses Not on filedocumented in this encounter Care Teams Bandoleer Packer Relationship Specialty Start Date End Date Rl Medina DO [address] [place] [address] PCP - General 08/09/17 05/25/24 documented as of this encounter
--- OUTSIDE RECORDS SUMMARY | 2024-11-05 19:19 | XMS_ITS | Encounter Summary ---
Author Organization [facility] Healthcare Address [address] [place] [address] Care Team Providers Care Glass Maker Name Role Phone Rl Medina DO Primary Care Provider Encounter Details Date Type Department Care Team (Latest Contact Info) Description 01/23/2024 6:08 PM CDT - 01/23/2024 11:59 PM CDT Hospital Encounter [facility] [id number] [place] [id number] Discharge Disposition: Discharge to home or self care Social History Tobacco Use Types Packs/Day Years Used Date Smoking Tobacco: Former Cigarettes 1 1979 Passive Smoke Exposure: Never Smokeless Tobacco: Never Alcohol Use Standard Drinks/Week Comments Yes 14 (1 standard drink = 0.6 oz pu re alcohol) social [facility] Utilities Answer Date Recorded In the past 12 months has [employer], gas, oil, or water [email or web address] threatened to shut off services in your [...] often do you attend chur ch or sikh services? 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 Not on file Not [...] a day 4 ascorbic acid (VITAMIN C ORAL)Indications:hugo pplement Take [...] ound healing Take 1 tablet by mouth world geography teacher before breakfast ondansetron ODT (ZOFRAN-ODT) 4 mg [...] 1 tablet (20 mEq total) by mouth world geography teacher before breakfast 4 senna-docusate (PERICOLACE) 8.6-50 mg Take 1 tablet by mouth nightly 4 tamsulosin (FLOMAX) 0.4 mg extended release capsule Take 2 capsules (0.8 mg total) by mouth daily with dinner 4 arginine-glutamine- calcium HMB 7-7-1.5 gram powder in packetIndications:w ound Take 1 Dose by mouth 2 (two) times a day [employer] 06/02/20 24 DILT-XR 240 mg 24 hr capsuleIndications: hypertension Take 1 capsule (240 mg total) by mouth 2 (two) times a day 4 02/07/20 24 dilTIAZem CD 120 mg 24 hr capsuleIndications: hypertension Take 1 capsule (120 mg total) by mouth 2 (two) times a day 4 03/27/20 24 enoxaparin (LOVENOX) 80 mg/0.8 mL syringeIndications: Venous Thrombosis Inject 0.8 mL (80 mg total) under the skin every 12 (twelve) hours 4 02/05/20 24 eszopiclone (LUNESTA) 3 mg tabletIndications:I nsomnia Take 1 mg by mouth nightly 4 03/27/20 24 guaiFENesin (ROBITUSSIN) syrup 100 mg/5 mL Take 10 mL (200 mg total) by mouth 4 (four) times a day as needed for cough 4 02/14/20 24 hydroCHLOROthiazide (HYDRODIURIL) 12.5 mg tablet 4 06/02/20 24 levETIRAcetam (KEPPRA) 1,000 mg tablet Take 1 tablet (1,000 mg total) by mouth 2 (two) times a day 4 04/15/20 24 oxyCODONE (ROXICODONE) 5 mg immediate release tabletIndications:P ain Take 1 tablet (5 mg total) by mouth every 4 (four) hours as needed for pain for up to 5 doses 5 tablet 4 02/14/20 24 ramelteon (ROZEREM) 8 mg tabletIndications:S leep-Onset Insomnia Take 1 tablet (8 mg total) by mouth nightly 02/14/20 24 zolpidem (AMBIEN) 5 mg tabletIndications:S leep-Onset Insomnia Take 1 tablet (5 mg total) by mouth nightly as needed for sleep 02/14/20 24 documented as of this encounter Discharge Disposition Disposition Code Departure Means Destination Discharge to home or self care documented in this encounter Plan of Treatment Not on file documented as of this encounter Procedures Procedure Name Priority Date/Time Associated Diagnosis Comments EGFR Routine 01/23/2024 6:08 PM CDT DIFFERENTIAL AUTO Routine 01/23/2024 6: 08 PM CDT BASIC METABOLIC PANEL, SERUM Routine 01/23/2024 6:08 PM CDT CBC WITH AUTO DIFFERENTIAL Routine 01/23/2024 6:08 PM CDT MAGNESIUM Routine 01/23/2024 6:08 PM CDT documented in this encounter Results * eGFR (01/23/2024 6:08 PM CDT) eGFR 92 mL/min/1. 73 m2 Comment: Interpretive Data Reference [...] interpretive data was last reviewed 2021. Blood 01/23/2024 6:08 PM CDT 01/23/2024 7:51 PM CDT us Vinniedave Cueva MD LAB BLOOD ORDERABLES Final R esult [facility] [address] Department [place] [address] * Differential, auto (01/23/2024 6:08 PM CDT) Neutrophil abs 6.3 1.5 - 6.5 K/cumm Imm gran abs 0.0 0.0 - 0.1 K/cumm [facility] Lymphocyte abs 1.8 0.8 - 3.3 K/cumm [facility] Monocyte abs 0.6 0.2 - 0.8 K/cumm [facility] Eosinophil abs 0.3 0.0 - 0.5 K/cumm [facility] Basophil abs 0.1 0.0 - 0.1 K/cumm [facility] Neutrophil pct 69.1 % [facility] Comment: Interpretive Data Percent cell count reference ranges are not reported, since discordance with absolute values may lead to misinterpretation of CBC data. Current Interpretive Data was last revised on 2018. Imm gran pct 0.4 % [facility] Comment: Interpretive Data Percent cell count reference ranges are not reported, since discordance with absolute values may lead to misinterpretation of CBC data. Current Interpretive Data was last revised on 2018. Lymphocyte pct 20.1 % [facility] Comment: Interpretive Data Percent cell count reference ranges are not reported, since discordance with absolute values may lead to misinterpretation of CBC data. Current Interpretive Data was last revised on 2018. Monocyte pct 6.4 % [facility] Comment: Interpretive Data Percent cell count reference ranges are not reported, since discordance with absolute values may lead to misinterpretation of CBC data. Current Interpretive Data was last revised on 2018. Eosinophil pct 3.3 % [facility] Comment: Interpretive Data Percent cell count reference ranges are not reported, since discordance with absolute values may lead to misinterpretation of CBC data. Current Interpretive Data was last revised on 2018. Basophil pct 0.7 % [facility] Comment: Interpretive Data Percent cell count reference ranges are not reported, since discordance with absolute values may lead to misinterpretation of CBC data. Current Interpretive Data was last revised on 2018. Blood 01/23/2024 6:08 PM CDT 01/23/2024 6:48 PM CDT us Vinniedave Cueva MD LAB BLOOD ORDERABLES Final R esult [facility] [address] Department [place] [address] * (ABNORMAL) CBC with auto differential (01/23/2024 6:08 PM CDT) WBC 9.2 3.8 - 9.9 K/cumm Hgb 10.5(L) 13.0 - 17.5 g/dL [facility] Hct 34.3(L) 38.9 - 50.3 % [facility] Plt 196 150 - 400 K/cumm [facility] MPV 11.3 9.1 - 12.3 fL [facility] RBC 3.71(L) 4.30 - 5.80 M/cumm [facility] MCV 92.5 81.3 - 96.4 fL [facility] MCH 28.3 27.1 - 33.3 pg [facility] MCHC 30.6(L) 32.3 - 35.7 g/dL [facility] RDW CV 14.1 11.1 - 14.9 % [facility] RDW SD 47.4 35.7 - 48.1 fL [facility] NRBC abs 0.00 0.00 - 0.01 K/cumm [facility] Blood 01/23/2024 6:08 PM CDT 01/23/2024 6:48 PM CDT Vinnie uCeva MD LAB BLOOD ORDERABLES Final R esult Performing Organization Address [facility] Co de Phone Number [facility] [phone] [place] [employer] [place] [address] * Magnesium (01/23/2024 6:08 PM CDT) [facility] Magnesium 2.0 1.4 - 2.5 mg/dL Blood 01/23/2024 6:08 PM CDT 01/23/2024 6:48 PM CDT Vinniedave Cueva MD LAB BLOOD ORDERABLES Final R [facility] Performing Organization Address [facility] de Phone Number [facility] [phone] [place] [address] * (ABNORMAL) Basic metabolic panel, serum (01/23/2024 6:08 PM CDT) Pathologist [facility] Sodium 142 135 - 145 mmol/L Potassium, sr 4.1 3.6 - 5.2 mmol/L [facility] Chloride 100 97 - 110 mmol/L [facility] CO2 31 22 - 32 mmol/L [facility] Anion gap 11 2 - 15 mmol/L [facility] BUN 38(H) 6 - 25 mg/dL [facility] Creatinine 0.86 0.80 - 1.30 mg/dL [facility] Glucose 145 70 - 199 mg/dL [facility] Comment: Interpretive Data Fasting glucose >/= 126 [...] interpretive data was last revised 2022. Calcium 9.6 8.5 - 10.3 mg/dL [facility] Blood 01/23/2024 6:08 PM CDT 01/23/2024 6:48 PM CDT us Vinnie Ravi Cueva MD LAB BLOOD ORDERABLES Final R esult [facility] [address] Department [place] [address] documented in this encounter Visit Diagnoses Not on filedocumented in this encounter Care Teams Glass Maker Relationship Specialty [place] [address] [place] [address] PCP - General 08/09/17 05/25/24 documented as of this encounter
--- OUTSIDE RECORDS SUMMARY | 2024-11-05 19:19 | XMS_ITS | Encounter Summary ---
Author Organization [facility] Healthcare Address [address] [place] [address] Care Team Providers Care User Experience Developer Name Role Phone Rl Medina DO Primary Care Provider [phone] Reason for Visit * Auth/Cert (Routine) Specialty Diagnoses / Procedures Referred By Contac t Referred To Contact Diagnoses Nephrolithiasis Nephrolithiasis [N20.0] Procedures RI CYSTO/URETERO W/LITHOTRIPSY &INDWELL STENT INSRT URETEROSCOPY LITHOTRIPSY - LASER EXCHANGE STENT - URETERAL Referral ID Status Reason Start Date Expiration Date Visits Re quested Visits Authorized [id number] 1 1 Encounter Details Date Type Department Care Team (Late st Contact Info) Description 02/27/2024 10:10 AM CDT Anesthesia Event [facility] Operating Room [address] [place] [address] Larissa Mathews MD [address] [facility] [address] [place] [address] Krista Mccoy NP [phone] [facility] [phone] [place] [address] Anesthesia Record Procedure Summary Procedure Name Responsible Anesthesiologist Anesthesia Start Time Anesthesia Stop Time URETEROSCOPY (Left) Larissa Mathews MD 02/27/24 10 10 02/27/24 1154 Events Date Time Event Comment 02/27/2024 0910 In Preop 1002 1010 An Start 1014 In Room 1014 An Start Data 1018 An Induction The patient was reevaluated immediately before moderate or deep sedation use and before anesthesia induction. 1020 An Intubation 1023 Anesthesia Ready 1045 Quick Note Patient turned prone; prone view in place; BBS=; eyes and ETT clearly visible and will be checked every 5 minutes; cervical spine and both shoulders in good anatomical alignment; both arms and all other pressure points padded; legs in modified lithotomy 1048 Proc Start 1049 Incision Start 1143 An Extubation 1147 Proc Fin 1149 an stop data 1150 Out of Room 1150 Handoff to RN I completed my handoff [...] disposition at the time of handoff: PACU 1152 Handoff to RN I completed my handoff [...] disposition at the time of handoff: PACU 1154 An Stop Meds Name Total propofol 150 mg fentaNYL 100 mcg succinylcholine 100 mg rocuronium 30 mg ondansetron PF (ZOFRAN) 2 mg/mL injectio n 4 mg sugammadex 200 mg cefTRIAXone 2,000 mg 2,000 mg LR 800 mL * Agents Name O2% N2O O2 N2O Air Sevoflurane Inspired Sevoflurane * Blood No blood administrations on file. Lines, Drains, and Airways Type Details Placement Removal RETIRED Wound 12/25/23; 1030; Yes; Abrasion(s); Anterior, Right; Toe (Comment which one) (second toe); abrasion from hiting it on wheelchair; 08/04/24; 1000; Not present on admission 12/25/23 1030 by Katharine Montgomery RN 08/04/24 1000 by Octavio Haider RN Nephrostomy 02/05/24; 1146; Left ; 10 Fr.; Disontinued in OR 02/05/24 1146 by Miguel Angel Harmon RN 02/27/24 1129 by Honorio Bhakta RN Peripheral IV Placement Date: 02/26/24; Placement Time: 2100; Catheter Size: 20 G; Orientation: Anterior, Left; Location: Forearm; Site Prep: Chlorhexidine; Technique: Anatomical landmarks; Insertion Attempts: 1; Patient Tolerance: Tolerated well; Removal Date: 02/27/24; Removal Time: 1404 02/26/24 2100 by Melvina Panda RN 02/27/24 1404 by Alla Asher RN RETIRED Surgical Site 02/27/24; 1054; Pe nis; [...] Olivia Silvestre CRNA 06/06/24 1021 by Kaiser Adair CRNA documented in this encounter Social History Tobacco Use Types Packs/Day Years Used Date Smoking Tobacco: Former Cigarettes 1 11 969 - 1979 Passive Smoke Exposure: Never Smokeless Tobacco: Never Alcohol Use Standard Drinks/Week Comments Yes 14 (1 standard drink = 0.6 oz pu re alcohol) social [facility] Utilities Answer Date Recorded In the past 12 months has [employer], gas, oil, or water [employer] threatened to shut off services in your [...] often do you attend chur ch or yarsanism services? 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 Not on file Not on file documented as of this encounter OR Notes * Anesthesia Postprocedure Evaluation - Larissa Mathews MD - 02/27/2024 1:10 PM CDT Patient: Hira Evans Procedure Summary Date: 02/27/24 Room / Location: [facility] OR POD 1 ROOM 323 / [facility] OR POD 1 Anesthesia Start: 1010 Anesthesia Stop: Procedures: URETEROSCOPY (Left) PLACEMENT STENT - URETERAL (Left: Ureter) REMOVAL NEPHROSTOMY TUBE (Left) PYELOGRAM - RETROGRADE (Left: Perineum) Diagnosis: Nephrolithiasis (Nephrolithiasis [N20.0]) Surgeons: Temo Mcintosh MD Responsible Provider: Larissa Mathews MD Anesthesia Type: general ASA Status: 3 Anesthesia Type: general Last vitals BP 116/82 (BP Location: Right arm, Patient Position: Lying;HOB 30 degrees) Pulse 71 Temp 36.5 ??C (97.7 ??F) Resp 18 SpO2 94% Anesthesia Post Evaluation Patient location during evaluation: PACU Patient participation: complete - patient participated Level of consciousness: fully awake Pain score: 1 Pain management: adequate Airway patency: adequate and patent Evidence of recall: no Cardiovascular status: acceptable and hemodynamically stable Respiratory status: room air and acceptable Hydration status: acceptable Pt is: normothermic Nausea/Vomiting status: none No notable events documented. * Anesthesia Procedure Notes - Olivia Silvestre CRNA - 02/27/2024 12:02 PM CDTAssociated Order(s): Airway Airway Patient location: OR Urgency: elective Indications for airway management: anesthesia Difficult airway: no Staff: Supervising provider: Larissa Mathews MD Placed by: COMMUNITY RECREATION PROGRAMMER: Olivia Silvestre CRNA Emergent airway documentation: Risks and benefits discussed: yes Consent obtained: yes Consent given by: patient Airway prep: Preoxygenated: yes Mask difficulty assessment: 1 - vent by mask Sedation level during airway: GA Final airway details: Final airway type: endotracheal airway Tube type: ETT ETT size: 8.0 mm Cuffed: yes Technique used for successful ETT placement: direct laryngoscopy Insertion site: oral Blade type: Burns Blade size: 3 Cormack-Lehane (direct): grade I - full view of glottis Cuff volume: 10 mL Cuff inflated with: air ETT to lips: 24 cm Placement verified by: auscultation and CO2 detection Airway secured with: silk tape * Anesthesia Preprocedure Evaluation - Larissa Mathews MD - 02/20/2024 1:52 PM CDT Images from the original note were not included. [facility] for Preoperative Assessment and Planning Preoperative Evaluation Record Evaluation type/location: TPAP from [facility] Planned procedure site: [facility] PVT OR (Pod 1) Date: 02/20/24 Anesthesia [...] DVT/PE episodes: 1. Pertinent negatives: CAD ; DC ; CABG ; atrial fibrillation; pacemaker/ICD; negative [...] were provided via telephone and faxed to [place]. Patient verbalized understanding of DOS instruction as [...] creatinine clearance is 75.1 ml/min. Per the [facility] Perioperative Antithrombotic Toolkit, we recommend discontinuing this medication for 72 hours prior to surgery to minimize the duration of anticoagulation discontinuation. Therapeutic anticoagulation should be resumed postoperatively as soon as possible. Alternative anticoagulation therapies can be used in the interim if acceptable. Discussed with surgeon's office. Please call the [facility] clinic ([phone]) to revisit risk assessment, with any questions, [...] by mouth 2 (two) times a day qpczkxwi-iowymsizu-lkhjzlu HMB 7-7-1.5 gram powder in packet 02/14/2024 [...] Perdue MD multivitamin tablet 02/14/2024 -- -- Fidelia Perdue MD ondansetron ODT [...] Take 1 tablet by mouth early childhood assistant before breakfast tamsulosin (FLOMAX) 0.4 mg extended release capsule () -- 12/10/23 02/07/24 Jimenez Henao MD Take 2 capsules (0.8 mg total) by mouth daily with dinner Patient taking differently: Take 2 capsules (0.8 mg total) by mouth nightly 2 tablets Xarelto 15 mg tablet 02/14/2024 02/07/24 -- ProviderFidelia MD Xarelto 20 mg tablet Not Taking 02/07/24 -- ProviderFidelia MD Notes: Has not started No current facility-administered medications for this encounter. Current Outpatient Medications: acetaminophen (TYLENOL) 500 mg tablet acyclovir (ZOVIRAX) 400 mg tablet ayrhmful-scfnfmdmu-gvfwtvf HMB 7-7-1.5 gram powder in packet ascorbic [...] 01/23/2024: 0.86 mg/dL Joni index score: 30 DOS Physical Exam Medical history, medications, and allergies reviewed. Attestation: With today's edits, I endorse the findings of the anesthesia pre-evaluation assessment dated: 02/20/2024. Airway Exam: Mallampati: I Cervical ROM: FROM TM distance: normal Cardiovascular Exam: Rate: regular Rhythm: regular Pulmonary Exam: LCTA, bilat Dental Exam: Otherwise appears intact Current state: Patient's current state is cooperative and interactive. Anesthesia Plan ASA 3 My patient is approved for the Anesthesia Controlled Medication protocol when under care of a COMMUNITY RECREATION PROGRAMMER Planned anesthesia: General Team communication plan: oral ET tube Induction: Induction: intravenous. Postoperative Plan: Postoperative administration opioids intended. No postoperative mechanical ventilation intended. Patient's planned disposition post procedure is Outpatient. Planned trial extubation. Informed Consent: Discussed plan with COMMUNITY RECREATION PROGRAMMER. Anesthesia plan and risks discussed with patient. Consent and Attending signature: I and/or my [...] Procedure Name Priority Date/Time Associated Diagnosis Comments RI AN PROCEDURE PLACEHOLDER Routine 02/27/2024 12:02 PM CDT RI AN ELECTIVE ENDOTRACHEAL AIRWAY Routine 02/27/2024 12:02 PM CDT documented in this encounter Results * RI AN ELECTIVE ENDOTRACHEAL AIRWAY, RI AN PROCEDURE PLACEHOLDER (02/27/2024 12:02 PM CDT) Narrative Olivia Silvestre CRNA - 02/27/2024 12:02 PM CDT Olivia Silvestre CRNA ? 02/27/2024 12:03 PM Airway Patient location: OR Urgency: elective Indications for airway management: anesthesia Difficult airway: no Staff: Supervising provider: Larissa Mathews MD Placed by: COMMUNITY RECREATION PROGRAMMER: Olivia Silvestre CRNA Emergent airway documentation: Risks and benefits discussed: yes Consent obtained: yes Consent given by: patient Airway prep: Preoxygenated: yes Mask difficulty assessment: 1 - vent by mask Sedation level during airway: GA Final airway details: Final airway type: endotracheal airway Tube type: ETT ETT size: 8.0 mm Cuffed: yes Technique used for successful ETT placement: direct laryngoscopy Insertion site: oral Blade type: Burns Blade size: 3 Cormack-Lehane (direct): grade I - full view of glottis Cuff volume: 10 mL Cuff inflated with: air ETT to lips: 24 cm Placement verified by: auscultation and CO2 detection Airway secured with: silk tape us Larissa Mathews MD ANESTHESIA ORDERABLES Final Result documented in this encounter Visit Diagnoses Not on filedocumented in this encounter Administered Medications Inactive Administered Medications - up to 3 most recent administrations Medication Order MAR Action Action Date Dose Rate Site cefTRIAXone (ROCEPHIN) injection intravenous, As needed, Starting on Sun02/27/24 at 1017, Anesthesia Intra-op Given 02/27/2024 10:17 AM CDT 2,000 mg fentaNYL (SUBLIMAZE) preservative free injection intravenous, As needed, Starting on Sun02/27/24 at 1018, Anesthesia Intra-op Given 02/27/2024 10:18 AM CDT 100 mcg Lactated Ringer's (LR) infusion intravenous, Continuous PRN, Starting on Sun02/27/24 at 0910, Anesthesia Intra-op New Bag 02/27/2024 9:10 AM CDT ondansetron (ZOFRAN) injection intravenous, Administer over 2 Minutes, As needed, Starting on Sun02/27/24 at 1141, Anesthesia Intra-op Given 02/27/2024 11:41 AM CDT 4 mg propofoL (DIPRIVAN) 10 mg/mL IV intravenous, As needed, Starting on Sun02/27/24 at 1018, Anesthesia Intra-op New Bag 02/27/2024 10:18 AM CDT 150 mg rocuronium (ZEMURON) injection intravenous, As needed, Starting on Sun02/27/24 at 1026, Anesthesia Intra-op Given 02/27/2024 10:26 AM CDT 30 mg succinylcholine syringe intravenous, As needed, Starting on Sun02/27/24 at 1018, Anesthesia Intra-op Given 02/27/2024 10:18 AM CDT 100 mg sugammadex (BRIDION) 100 mg/mL intravenous solution intravenous, As needed, Starting on Sun02/27/24 at 1141, Anesthesia Intra-op Given 02/27/2024 11:41 AM CDT 200 mg documented in this encounter Orders Medications Ordered That Armando ht Not Have Been Administered Count Last Ordered Date First Ordered Date Lactated Ringer's (LR) infusion 1 4 documented in this encounter Care Teams User Experience Developer Relationship Specialty Start Date End Date Rl Medina DO [address] [place] [address] PCP - General 08/09/17 05/25/24 documented as of this encounter
--- OUTSIDE RECORDS SUMMARY | 2024-11-05 19:19 | XMS_ITS | Encounter Summary ---
Author Organization [facility] Healthcare Address [address] [place] [address] Care Team Providers Care Automatic Spooler Operator Name Role Phone Rl Medina DO Primary Care Provider [phone] Encounter Details Date Type Department Care Team (Late st Contact Info) Description 01/31/[address] [facility] Radiology [facility] [address] [place] [address] Marcial Gaviria RN Social History Tobacco Use Types Packs/Day Years Used Date Smoking Tobacco: Former Cigarettes 1 09 05 969 1979 Passive Smoke Exposure: Never Smokeless Tobacco: Never Alcohol Use Standard Drinks/Week Comments Yes 14 (1 standard drink = 0.6 oz pu re alcohol) social C Utilities Answer Date Recorded In the past 12 months has [facility], gas, oil, or water [employer] threatened to shut off services in your [...] often do you attend chur ch or scientologist services? 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 Not on file Not on file documented as of this encounter Miscellaneous Notes * Telephone Encounter - Marcial Gaviria RN - 01/31/2024 3:27 PM CDT Preprocedure Phone Call Procedure Time Verified: Yes Arrival Time Verified: Yes Procedure Location Verified: Yes Medical History Reviewed: No NPO Status Reinforced: Yes Ride and Caregiver Arranged: Yes documented in this encounter Plan of Treatment Not on file documented as of this encounter Visit Diagnoses Not on filedocumented in this encounter Care Teams Automatic Spooler Operator Relationship Specialty Start Date End Date Rl Medina DO [address] [place] [address] PCP - General 08/09/17 05/25/24 documented as of this encounter
--- OUTSIDE RECORDS SUMMARY | 2024-11-05 19:19 | XMS_ITS | Encounter Summary ---
Author Organization [facility] Healthcare Address [address] [place] [address] Care Team Providers Care Psychiatric Clinician Name Role Phone Rl Medina DO Primary Care Provider Reason for Referral * Diagnostic Imaging (Routine) - Closed Specialty Diagnoses / Procedures Referred By Manisha gale Referred To Contact Radiology Diagnoses Hydronephrosis with urinary obstruction due to renal calculus Procedures IR Nephrostomy Catheter Change Left Dennis Albarado MD [address] [place] [address] Phone: tel: fax: [address] [phone] Referral ID Status Reason Start Date Expiration Date Visits Re quested Visits Authorized [id number] Closed 12/26/2023 01/24/2025 1 1 Reason for Visit * Diagnostic Imaging (Routine) - Closed Specialty Diagnoses / Procedures Referred By Manisha gale Referred To Contact Radiology Diagnoses Hydronephrosis with urinary obstruction due to renal calculus Procedures IR Nephrostomy Catheter Change Left Dennis Albarado MD [address] [place] [address] Phone: tel: fax: [address] [phone] Referral ID Status Reason Start Date Expiration Date Visits Re quested Visits Authorized [id number] Closed 12/26/2023 01/24/2025 1 1 Encounter Details Date Type Department Care Team (Latest Contact Info) Description 02/05/2024 10:27 AM CDT - 02/05/2024 11:59 PM CDT Hospital Encounter [facility] Radiology [facility] [address] [place] [address] Hydronephrosis with urinary obstruction due to renal calculus Discharge Disposition: Discharge to home or self care Social History Tobacco Use Types Packs/Day Years Used Date Smoking Tobacco: Former Cigarettes 1 11 1 969 1979 Passive Smoke Exposure: Never Smokeless Tobacco: Never Alcohol Use Standard Drinks/Week Comments Yes 14 (1 standard drink = 0.6 oz pu re alcohol) social [employer] Utilities Answer Date Recorded In the past [...] on file 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 Gender Identity Not on file Sexual Orientation Not on file 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 Not on file Not on file Not on file documented as of this encounter Last Filed Vital Signs Vital Sign Reading Time Taken Comments Blood Pressure 135/87 02/05/2024 11:55 AM CDT Pulse 85 02/05/2024 11:55 AM CDT Temperature 36 ??C (96.8 ??F) 02/05/2024 11:55 AM CDT Respiratory Rate 16 02/05/2024 11:55 AM CDT Oxygen Saturation 100% 02/05/2024 11:55 AM CDT Inhaled Oxygen Concentration - - Weight - - Height - - Body Mass Index - - documented in this encounter Discharge Instructions * Discharge Instructions* Tamia Rojas MD - 02/05/2024 11:57 AM CDT Interventional Radiology Outpatient Discharge Instructions/Note Diagnosis:Nephrostomy tube exchange. Procedure:Same. Limitations: [] You received medication that may [...] draining. To contact an Interventional Radiologist at [facility] call [phone] Sunday through Sunday from 7:30am-4:30pm. At all other times call [phone] and ask that the Interventional Radiologist be paged. To contact an Interventional Radiologist at [facility] call [phone] Sunday through Sunday from 7:30am-3:30pm. To contact an Interventional Radiologist RN at [facility] call [phone] Sunday through Sunday from 7:00 am-5:00 pm. To schedule an appointment with Interventional Radiology at [facility] call [phone] Sunday through Sunday from 7:30 am-4:00 pm. [...] Follow up care: [x] Return to Interventional Radiology in 6 weeks for exchange and possible conversion. Please come to: [] 3rd Floor [facility] [] 4th floor [facility] [] [facility] [] [facility] Please call [phone] if you need to schedule a follow up appointment. documented in this encounter Medications at Time [...] ound healing Take 1 tablet by mouth bulk tank driver before breakfast ondansetron ODT (ZOFRAN-ODT) 4 [...] 1 tablet (20 mEq total) by mouth bulk tank driver before breakfast 4 senna-docusate (PERICOLACE) 8.6-50 mg Take 1 tablet by mouth nightly 4 tamsulosin (FLOMAX) 0.4 mg extended release capsule Take 2 capsules (0.8 mg total) by mouth daily with dinner 4 tamsulosin (FLOMAX) 0.4 mg extended release capsule Take 1 capsule (0.4 mg total) by mouth daily 30 capsule 11 02/27/20 25 arginine-glutamine- calcium HMB 7-7-1.5 gram [...] mg total) by mouth nightly 02/14/20 24 Xarelto 15 mg tabletIndications:V TE Prophylaxis,Venous Thrombosis Take 1 tablet (15 mg total) by mouth 2 (two) times a day For 21 days 4 02/27/20 24 Xarelto 20 mg tabletIndications:D VT Take 1 tablet (20 mg total) by mouth daily with breakfast 4 09/10/20 24 zolpidem (AMBIEN) 5 mg tabletIndications:S leep-Onset Insomnia Take 1 tablet (5 mg total) by mouth nightly as needed for sleep 02/14/20 24 documented as of this encounter Discharge Disposition Disposition Code Departure Means Destination Discharge to home or self care documented in this encounter Miscellaneous Notes * Post-Procedure Note - Tamia Rjoas MD - 02/05/2024 11:00 AM CDT Radiology Brief Post Procedure Note Attending: BONITA Chase; Dr. Mar Test And Balance Engineer: Dr. Rojas Sedation/Anesthesia: Local Pre-Op/Pre-Procedure Diagnosis: Left PCN exchange. Post-Op/Post-Procedure Diagnosis: Successful left PCN exchange. Procedure Performed: Same. Procedure Findings: Same. Complications: None Estimated Blood Loss: < 30 ml Specimens: None Condition: Stable Full report to follow. 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 Status post left 10Fr [place] nephrostomy tube on 12/26/2023. Presents for exchange/possible conversion to PCNU. Planned Procedure: Nephrostomy catheter exchange with possible conversion to PCNU. documented in this encounter Plan of Treatment Not on file documented as of this encounter Procedures Procedure Name Priority Date/Time Associated Diagnosis Comments NEPHROSTOMY CATHETER CHANGE LEFT Schedule Routine, Read Routine (OP Routine) 02/05/2024 11:47 AM CDT Hydronephrosis with urinary obstruction due to renal calculus documented in this encounter Results * IR Nephrostomy Catheter [...] placement on 12/26/23 with a 10 Fr [place] catheter. There was discussion regarding possible conversion [...] were discussed. Prior to beginning the procedure, [place] Protocol was performed to confirm the patient's [...] over wire for a new 10 Fr [place]ide catheter with appropriate catheter tip positioning in [...] placement on 12/26/23 with a 10 Fr [place] catheter. There was discussion regarding possible conversion [...] were discussed. Prior to beginning the procedure, [place] Protocol was performed to confirm the patient's [...] over wire for a new 10 Fr [place] catheter with appropriate catheter tip positioning in [...] next catheter change. Electronically signed by: Delisa R Wertenberger, PA-C us Dennis JEFF IR PROCEDURES Final R esult documented in this encounter Visit Diagnoses Diagnosis Hydronephrosis with urinary obstruction due to renal calculus documented in this encounter Administered Medications Inactive Administered Medications - up to 3 most recent administrations Medication Order MAR Action Action Date Dose Rate Site lidocaine (PF) (XYLOCAINE) 10 mg/mL (1 %) preservative free injection As needed, Starting on Sun02/05/24 at 1147, Intra-Procedure (IR), Indications: Administration of Local AnesthesiaIndications:Administrati on of Local Anesthesia Given 02/05/2024 11:47 AM CDT 1 mL Flank documented in this encounter Discontinued Medications Medication Sig Discontinue Reason Start Date End Da te enoxaparin (LOVENOX) 80 mg/0.8 mL syringeIndications:Venou s Thrombosis Inject 0.8 mL (80 mg total) under the skin every 12 (twelve) hours Alternate therapy 12/10/2023 02/05/2024 documented as of this encounter Orders Medications Ordered That Armando ht Not Have Been Administered Count Last Ordered Date First Ordered Date Carrier Fluids for Secondary Infusion - 0.9% Sodium Chloride 1 02/05/2024 sodium chloride 0.9% flush 0.5-20 mL 2 12/2023 sodium chloride 0.9% flush 10-20 mL 1 02/04 sodium chloride 0.9% flush 5-10 mL 1 2023 sodium chloride 0.9% infusion 1 02/05/2024 Discharge Count Last Ordered Date First Orde red Date DISCHARGE PATIENT 1 02/05/2024 documented in this encounter Care Teams Psychiatric Clinician Relationship Specialty Start Date End Date Rl Medina DO [address] [place] [address] PCP - General 08/09/17 05/25/24 documented as of this encounter
--- OUTSIDE RECORDS SUMMARY | 2024-11-05 19:19 | XMS_ITS | Encounter Summary ---
Author Organization [facility] Healthcare Address [address] [place] [address] Care Team Providers Care Agricultural Consultant Name Role Phone Rl Medina DO Primary Care Provider [phone] Reason for Visit * Auth/Cert (Routine) Specialty Diagnoses / Procedures Referred By Contac t Referred To Contact Diagnoses Kidney stone Kidney stone [N20.0] Procedures NM CYSTOURETHROSCOPY CYSTOSCOPY PYELOGRAM - RETROGRADE URETEROSCOPY LITHOTRIPSY - LASER EXCHANGE STENT - URETERAL Referral ID Status Reason Start Date Expiration Date Visits Re quested Visits Authorized [id number] 1 1 Encounter Details Date Type Department Care Team (Late st Contact Info) Description 12/25/2023 7:23 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 Anesthesia Event [facility] Operating Room [address] [place] [address] Shalom Yuan MD [address] [place] [address] Hannah Gay NP [address] [facility] [id number] [place] [address] Anesthesia Record Procedure Summary Procedure Name Responsible Anesthesiologist Anesthesia Start Time Anesthesia Stop Time CYSTOSCOPY Shalom Yuan MD 12/25/23 0723 0 12/25/23 0830 Events Date Time Event Comment 12/25/2023 0604 In Preop 0717 0723 An Start 0728 In Room 0729 An Start Data 0733 An Induction The patient was reevaluated immediately before moderate or deep sedation use and before anesthesia induction. 0735 An LMA 0736 Anesthesia Ready 0746 Proc Start 0814 Proc Fin 0821 Airway Removed 0824 an stop data 0825 Out of Room 0830 Handoff to RN I completed my handoff [...] Patient disposition at the time of handoff: ICU 0830 An Stop Meds Name Total lidocaine (cardiac) syringe 2 % 50 mg propofol 100 mg fentaNYL 25 mcg ondansetron PF (ZOFRAN) 2 mg/mL injectio n 4 mg cefTRIAXone (ROCEPHIN) 2,000 mg/20 mL in sterile water (premix) 2,000 mg 2,000 mg famotidine 20 mg Lactated Ringer's (LR) infusion 700 mL * Agents Name O2% N2O O2 N2O Air Sevoflurane Inspired Sevoflurane * Blood No blood administrations on file. Lines, Drains, and Airways Type Details Placement Removal Urethral Catheter Inserted by: Present on assessment; Removal Date: 12/25/23; Removal Time: 0745; Removal Reason: Disontinued in OR 12/01/23 0730 by 12/25/23 0745 by Yeni Walker RN RETIRED Surgical Site 10/23/23; 1748; Ba ck; 12/26/23 10/23/23 1748 by Yeni Walker RN 12/26/23 0000 by Kishan Hanson RN RETIRED Wound 10/27/23; 0900; No; Rash; Posterior; Buttocks; redness to buttocks; 12/26/23 10/27/23 0900 by Donna Brooks RN 12/26/23 0000 by Kishan Hanson RN RETIRED Wound 10/27/23; 0900; No; Rash; Other (Comment) (Generalized); Generalized; red blotchy blanchable rash; 12/26/23 10/27/23 0900 by Donna Brooks RN 12/26/23 0000 by Kishan Hanson RN Peripheral IV Placement Date: 12/25/23; Placement Time: 07; Catheter Size: 20 G; Orientation: Left, Posterior; Location: Forearm; Insertion Attempts: 1; Removal Date: 12/27/23; Removal Time: 1351 12/25/23 0701 by Alla Asher RN 12/27/23 1351 by Kishan Hanson RN Supraglottic Airway Placement Date: 12/25/23; Placement Time: 0753 (created via procedure documentation); Mask Ventilation: 0; Size: 4; Insertion Attempts: 1; Removal Date: 12/25/23; Removal Time: 0812/25/23 0753 by Ruperto Tomas CRNA 12/25/23 0821 by Ruperto Tomas CRNA Urethral Catheter Placement Date: 12/25/23; Placement Time: 08; Inserted by: Dr Mcintosh; Type: Straight-tip, Non-latex; Balloon Size: 10 mL; Urine Returned: Yes; Removal Date: 12/27/23; Removal Reason: Per order 12/25/23 0811 by Yeni Walker RN 12/27/23 0000 by Kishan Hanson RN documented in this encounter Social History Tobacco Use Types Packs/Day Years Used Date Smoking Tobacco: Former Cigarettes 1 1979 Passive Smoke Exposure: Never Smokeless Tobacco: Never Alcohol Use Standard Drinks/Week Comments Yes 14 (1 standard drink = 0.6 oz pu re alcohol) social [employer] Utilities Answer Date Recorded In the past 12 months has Who@, [employer], oil, or water [employer] threatened to shut off services in your [...] attend chur ch or jew services? Never 11/30/2023 Do you belong to [...] slept in a half-way (including now)? No 11/30/2023 Personal Safety Answer Date Recorded Have you ever been in or are you currently in a harmful physical or emotional relationship or is someone making you feel afraid or unsafe? 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 Not on file Not on file documented as of this encounter OR Notes * Anesthesia Postprocedure Evaluation - Shalom Yuan MD - 12/25/2023 9:49 AM CST Patient: Hira Evans Procedure Summary Date: 12/25/23 Room / Location: [facility] OR POD 1 ROOM 325 / [facility] OR POD 1 Anesthesia Start: 722 Anesthesia Stop: 829 Procedures: CYSTOSCOPY PYELOGRAM - RETROGRADE (Left: Perineum) URETEROSCOPY Stone extraction (Left: Perineum) Diagnosis: Kidney stone (Kidney stone [N20.0]) Surgeons: Temo Mcintosh MD Responsible Provider: Shalom Yuan MD Anesthesia Type: general ASA Status: 3 Anesthesia Type: general Last vitals BP 128/64 Pulse 55 Temp 36 ??C (96.8 ??F) Resp 14 SpO2 97% Anesthesia Post Evaluation Patient location during evaluation: PACU Patient participation: complete - patient participated Level of consciousness: fully awake Pain score: 2 Cardiovascular status: hemodynamically stable Respiratory status: room air No notable events documented. HOUSE WORKER * Anesthesia Procedure Notes - Ruperto Tomas CRNA - 12/25/2023 7:52 AM CSTAssociated Order(s): Airway Airway Patient location: OR Urgency: elective Indications for airway management: anesthesia Difficult airway: no Staff: Supervising provider: Shalom Yuan MD Placed by: DIRECTOR OF RETAIL: Ruperto Tomas CRNA Emergent airway documentation: Risks and benefits discussed: yes Consent obtained: yes Consent given by: patient Airway prep: Preoxygenated: yes Patient position: sniffing MILS maintained throughout: yes Mask difficulty assessment: 0 - not attempted Spontaneous ventilation during airway: absent Sedation level during airway: GA Final airway details: Final airway type: supraglottic airway Final supraglottic airway: IGel SGA size: 4 Airway seal pressure: 20 cm H2O Number of attempts: 1 HOUSE WORKER * Anesthesia Preprocedure Evaluation - Shalom Yuan MD - 12/19/2023 8:16 AM CST Images from the original note were not included. [facility] for Preoperative Assessment and Planning Preoperative Evaluation Record Evaluation type/location: TPAP from [facility] Planned procedure site: [facility] PVT OR (Pod 1) Date: 12/19/23 NOTE: [...] DVT/PE episodes: 1. Pertinent negatives: CAD ; NV ; CABG ; atrial fibrillation; pacemaker/ICD; negative [...] were provided via telephone and faxed to [facility]. Patient verbalized understanding of DOS instruction. Case [...] of new anasarca. Spoke with MD at [facility]- will place order. Surgeon's office notified pt will need repeat TTE. -->Recommend holding Lovenox on morning of surgery only and resuming ANSELMO postoperatively. Instructed provided to [facility] staff. Film Fresh message sent to surgeon's office to make [...] apnea 10/10/2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CMS/HCC) ([facility]) 08/07/2019 Presence of right artificial knee joint 10/25/2018 Primary osteoarthritis of left knee 10/25/2018 Localized adiposity 07/17/2018 Knee pain 10/24/2016 Past Medical History: Diagnosis Date Allergic rhinitis Arthritis OA Cancer (CMS/HCC) (HCC) prostate and melonomia Cauda equina compression (HCC) DVT (deep venous thrombosis) (CMS/HCC) ([facility]) Gastric reflux GERD (gastroesophageal reflux disease) History [...] fusion L4-5 MELANOMA RESECTION Right 2005 flank PERCUTANEOUS NEPHROSTOMY PCN LEFT Left 10/14/2023 [...] (PERICOLACE) 8.6-50 mg -- 12/10/23 -- Jimenez Henoa MD Take 1 tablet by mouth nightly [...] 0.76 mg/dL (L) Joni index score: 55 DOS Physical Exam Medical history, medications, and allergies reviewed. Attestation: This PAT evaluation 12/25/2023. Airway Exam: Mallampati: II Cervical ROM: FROM TM distance: 3 Cardiovascular Exam: Rate: regular Rhythm: regular Pulmonary Exam: LCTA, bilat EENT Exam: trachea midline Dental Exam: Appears intact Skin Exam: Skin is warm. Turgor is normal. Current state: Patient's current state is cooperative. Anesthesia Plan ASA 3 My patient is approved for the Anesthesia Controlled Medication protocol when under care of a DIRECTOR OF RETAIL Planned anesthesia: General Team communication plan: oral ET tube Induction: Induction: intravenous. Postoperative Plan: Patient's planned disposition post procedure is Outpatient. Informed Consent: Discussed plan with DIRECTOR OF RETAIL. Anesthesia plan and risks discussed with patient. Plan and Consent Comments: Explained to the patient that during anesthesia, we must keep your airway open and need to intubatethe trachea. This can result in injury to your teeth, dental work, tongue, lips, nose or throat. You may have a sore throat from the airway used during surgery Consent and Attending signature: I and/or my designee have discussed the anesthesia plan, benefits, possible alternatives, parental presence at time of induction (if indicated), and clinically relevant risks that may include dental injury, unintentional awareness, and/or other complications. The patient and/or parent/legal guardian understand, and agree to proceed. All questions answered. 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 12/25/2023 ??7:53 AM Airway Patient location: OR Urgency: elective Indications for airway management: anesthesia Difficult airway: no Staff: Supervising provider: Shalom Yuan MD Placed by: DIRECTOR OF RETAIL: Ruperto Tomas CRNA Emergent airway documentation: Risks and benefits discussed: yes Consent obtained: yes Consent given by: patient Airway prep: Preoxygenated: yes Patient position: sniffing MILS maintained throughout: yes Mask difficulty assessment: 0 - not attempted Spontaneous ventilation during airway: absent Sedation level during airway: GA Final airway details: Final airway type: supraglottic airway Final supraglottic airway: IGel SGA size: 4 Airway seal pressure: 20 cm H2O Number of attempts: 1 us Shalom Collin Yuan MD ANESTHESIA ORDERABLES Fi nal Result documented in this encounter Visit Diagnoses Not on filedocumented in this encounter Administered Medications Inactive Administered Medications - up to 3 most recent administrations Medication Order MAR Action Action Date Dose Rate Site cefTRIAXone (ROCEPHIN) 2,000 mg/20 mL in sterile water (premix) 2,000 mg 2,000 mg, intravenous, at 1,200 mL/hr, Administer over 1 Minutes, Once, On Sun12/25/23 at 0700, For 1 dose, Pre-Op, Administer within 60 minutes of incision., Indications: Prophylaxis, SurgicalIndications:Prophy laxis, Surgical Given 12/25/2023 7:36 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 2,000 mg famotidine (PEPCID) injection intravenous, Administer over 2 Minutes, As needed, Starting on Sun12/25/23 at 0751, Anesthesia Intra-op Given 12/25/2023 7:51 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 20 mg fentaNYL (SUBLIMAZE) preservative free injection intravenous, As needed, Starting on Sun12/25/23 at 0745, Anesthesia Intra-op Given 12/25/2023 7:45 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 25 mcg Lactated Ringer's (LR) infusion 30 mL/hr, intravenous, Continuous, Starting on Sun12/25/23 at 0700, Pre-Op Rate/Dose Verify 12/25/2023 7:23 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 30 mL/hr New Bag 12/25/2023 7:07 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 30 mL/hr 30 mL/hr lidocaine (cardiac) (XYLOCAINE) preservative free injection intravenous, As needed, Starting on Sun12/25/23 at 0733, Anesthesia Intra-op, Indications: Ventricular ArrhythmiasIndications:Ventricular Arrhythmias Given 12/25/2023 7:33 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 50 mg ondansetron (ZOFRAN) injection intravenous, Administer over 2 Minutes, As needed, Starting on Sun12/25/23 at 0751, Anesthesia Intra-op Given 12/25/2023 7:51 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 4 mg propofoL (DIPRIVAN) 10 mg/mL IV intravenous, As needed, Starting on Sun12/25/23 at 0733, Anesthesia Intra-op New Bag 12/25/2023 7:33 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 100 mg documented in this encounter Care Teams Agricultural Consultant Relationship Specialty Start Date End Date Rl Medina DO [address] [place] [address] PCP - General 08/09/17 05/25/24 documented as of this encounter
--- OUTSIDE RECORDS SUMMARY | 2024-11-05 19:19 | XMS_ITS | Encounter Summary ---
Author Organization [facility] Address [address] [facility] [address] [place] [address] Phone Care Team Providers Care Groutman Name Role Phone Rl Medina DO Primary Care Provider Reason for Referral * Consultation (Routine) - Canceled Specialty Diagnoses / Procedures Referred By Manisha gale Referred To Contact Vascular Surgery Diagnoses Lower extremity edema Hayder Vu Jr., MD [address] [facility] [address]6B[address]12A [place] [address] Phone: tel: fax: Hayder Barron MD [address] [facility] [id number] [place] [address] Phone: tel: fax: Referral ID Status Reason Start Date Expiration Date Visits Requested Visits Authorized [id number] Canceled Specialty Services Required 03/27/2024 04/26/2025 1 1 Question Answer Please select the performing region: [facility] (All Locations) [[id number]] To provider: HAYDER BARRON [[id number]] # of visits: 1 Comments Evaluate and treat for bilateral lower extremity swelling. * Diagnostic Imaging (Routine) - Closed Specialty Diagnoses / Procedures Referred By Manisha gale Referred To Contact Diagnoses S/P laminectomy with spinal fusion Procedures XR Spine Thoracic 2 Views Hayder Vu Jr., MD [address] [facility] [address] [place] [address] Phone: tel: fax: [facility] Radiology [address] [place] [address] [address] [place] [address] Phone: tel: Referral ID Status Reason Start Date Expiration Date Visits Re quested Visits Authorized [id number] Closed 03/18/2024 04/17/2025 1 1 * Diagnostic Imaging (Routine) - Closed Specialty Diagnoses / Procedures Referred By Manisha t Referred To Contact Diagnoses S/P laminectomy with spinal fusion Procedures XR Spine Lumbar 2 or 3 Views Hayder Vu Jr., MD [address] [place] [address] Phone: tel: fax: [facility] Radiology [address] [place] [address] [address] [place] [address] Phone: tel: Referral ID Status Reason Start Date Expiration Date Visits Re quested Visits Authorized [id number] Closed 03/18/2024 04/17/2025 1 1 Reason for Visit * Reason Comments Return Patient Encounter Details Date Type Department Care Team (Late st Contact Info) Description 03/27/2024 10:00 AM CDT Office Visit [facility] Orthopaedic Surgery [address] [place] [address] Medical Office Building [address] [place] [address] Hayder Vu Jr., MD [address] [facility] [address]6B[address]A [place] [address] S/P laminectomy with spinal fusion (Primary Dx); Lower extremity edema Social History Tobacco Use Types Packs/Day Years Used Date Smoking Tobacco: Former Cigarettes 1 11 1 969 - 1979 Passive Smoke Exposure: Never Smokeless Tobacco: Never Alcohol Use Standard Drinks/Week Comments Yes 14 (1 standard drink = 0.6 oz pu re alcohol) social 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 Dr. Vu has recommended the following treatment: Referral to Vascular Surgery. Call [phone] to schedule your visit with Dr. Barron. Follow up in 3 months. Please let us know if you have any questions. Kasey Mari MA, ATC Manager Of Change to Dr. Hayder Vu Department of Orthopedic Spine Surgery Galina Franco RN, BSN Clinical Nurse Coordinator to Dr. Hayder Vu Department of Orthopedic Spine Surgery documented in this encounter Progress Notes * Hayder Vu Jr., MD - 03/27/2024 10:00 AM CDT Images from the original note were not included. Postoperative Patient Visit Interim History Follow up from Laminectomy Thoracic Decompression, Laminectomy Lumbar - Posterior, Spinal Cord Monitoring, and Repair Dural Tear on 11/08/2023 Mr. Evans follows up today for routine [...] hematoma and durotomy. [facility] at a [facility]. He has been doing PT 5 days per week. He is on Xarelto. IVC filter remains in place. He has an appointment with Hematology upcoming on 04/11/2024. He has nothad any improvement in his lower extremity motor function. His lower extremities are still swollen but they seem to be improved from prior. Physical Examination He is sitting in his [...] wraps are in place bilaterally. PROMIS Scores 02/07/2022 09/13/2023 10/08/2023 01/07/2024 02/07/2024 03/27/2024 PROMIS Mobility V1.2 46.2 Pain Interference 48.5 66.9 73.7 56 56 38.7 Physical Function V2.0 48.5 28.6 26.7 18.5 26.7 18.5 Anxiety V1.0 49 60.5 57.2 56.5 51.2 53.5 Depression 48.1 48.1 46.1 49.4 51.2 48.1 Review of Plain Radiographs/Studies My independent interpretation of the patient's imaging studies is as follows: Plain films of the thoracic and lumbar spine AP and lateral from today reviewed by me show stable alignment and implant placement status post L4-L5 fusion and thoracolumbar decompression. There is nosign of instability and no change in alignment compared to prior. Impression/Diagnosis 73-year-old male who is 5 months status post L4-L5 decompression and fusion [...] this 2nd surgery and remains in place. Hesubsequently developed bilateral lower extremity DVTs and therapeutic anticoagulation was initiated3 weeks after the 2nd surgery. He is now 4.5 months status post thoracolumbar decompression. He remains in a prison facility. He is on Xarelto. Treatment Plan He has an appointment with Hematology on 04/11/2024 to discuss a long-term anticoagulation plan andto come up with a plan for the IVC filter. I would also like him to see vascular surgery for recommendations regarding his lower extremity swelling and for the IVC filter. He will continue doing compressive wraps for his lower extremity swelling and will continue with gentle diuresis for fluid retention which I believe is also contributing to his lower extremity swelling. I will see him back in clinic in 3 months or earlier if any issues arise. We will obtain AP and lateral thoracic and lumbar spine x-rays at that time. All of his questions and his 's questions were answered. They are happ y with this plan. 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 ??Unchanged posterior decompression and combined anterior and posterior instrumented fusion at L4-L5. 2. 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 Dictated by: Linda Smallwood M.D. The radiology attending physician has personally reviewed this study, and had reviewed and/or edited this written report and agrees with it. Electronically signed by: Oskar Ackerman MD, PHD Narrative 03/27/2024 12:21 PM CDT EXAMINATION: XR SPINE THORACIC 2 VIEWS, XR SPINE LUMBAR 2 OR 3 VIEWS HISTORY: 73-year-old man with spinal fusion, follow-up COMPARISON: 02/07/2024 FINDINGS: 3 views of the lumbar spine and 2 views of the thoracic spine are obtained. Hyperkyphosis of the thoracic spine is unchanged. ??The superior thoracic spine is not well seen on lateral view due to overlapping tissues. ??Vertebral body heights are maintained. ??Mild to moderate multilevel degenerative disc disease throughout the visualized thoracic spine. ??Diffuse idiopathic skeletal hyperostosis. Posterior decompression and instrumented fusion at L4-L5 with combined interbody fusion. ??Instrumentation is intact. ??Mild to moderate degenerative disc disease at the nonfused levels. ??Anterior bridging osteophytes along the lumbar spine. ??Vertebral body heights are maintained. ??Inferior vena cava filter is noted. ??A left nephroureteral stent is noted. Procedure Note Oskar Ackerman MD PhD - 03/27/2024 EXAMINATION: XR SPINE THORACIC 2 VIEWS, XR SPINE LUMBAR 2 OR 3 VIEWS HISTORY: 73-year-old man with spinal fusion, follow-up COMPARISON: 02/07/2024 FINDINGS: 3 views of the lumbar spine and 2 views of the thoracic spine are obtained. Hyperkyphosis of the thoracic spine is unchanged. The superior thoracic spine is not well seen on lateral view due to overlapping tissues. Vertebral body heights are maintained. Mild to moderate multilevel degenerative disc disease throughout the visualized thoracic spine. Diffuse idiopathic skeletal hyperostosis. Posterior decompression and instrumented fusion at L4-L5 with combined interbody fusion. Instrumentation is intact. Mild to moderate degenerative disc disease at the nonfused levels. Anterior bridging osteophytes along the lumbar spine. Vertebral body heights are maintained. Inferior vena cava filter is noted. A left nephroureteral stent is noted. IMPRESSION: 1. Unchanged posterior decompression and combined anterior and posterior instrumented fusion at L4-L5. 2. Mild to moderate degenerative disease of the unfused thoracic and lumbar spine. Dictated by: Linda Smallwood M.D. The radiology attending physician has personally reviewed this study, and had reviewed and/or edited this written report and agrees with it. Electronically signed by: Oskar Ackerman MD, PHD Hayder Vu Jr., MD IMG XR PROCEDURES F inal Result * XR Spine Lumbar 2 or 3 Views (03/27/2024 10:02 AM CDT) Anatomical Region Laterality Modality Spine N/A Computed Radiogr aphy 03/27/2024 11:4 9 AM CDT Impressions 03/27/2024 12:21 PM CDT 1. ??Unchanged posterior decompression and combined anterior and posterior instrumented fusion at L4-L5. 2. 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 Dictated by: Linda Smallwood M.D. The radiology attending physician has personally reviewed this study, and had reviewed and/or edited this written report and agrees with it. Electronically signed by: Oskar Ackerman MD, PHD Narrative 03/27/2024 12:21 PM CDT EXAMINATION: XR SPINE THORACIC 2 VIEWS, XR SPINE LUMBAR 2 OR 3 VIEWS HISTORY: 73-year-old man with spinal fusion, follow-up COMPARISON: 02/07/2024 FINDINGS: 3 views of the lumbar spine and 2 views of the thoracic spine are obtained. Hyperkyphosis of the thoracic spine is unchanged. ??The superior thoracic spine is not well seen on lateral view due to overlapping tissues. ??Vertebral body heights are maintained. ??Mild to moderate multilevel degenerative disc disease throughout the visualized thoracic spine. ??Diffuse idiopathic skeletal hyperostosis. Posterior decompression and instrumented fusion at L4-L5 with combined interbody fusion. ??Instrumentation is intact. ??Mild to moderate degenerative disc disease at the nonfused levels. ??Anterior bridging osteophytes along the lumbar spine. ??Vertebral body heights are maintained. ??Inferior vena cava filter is noted. ??A left nephroureteral stent is noted. Procedure Note Oskar Ackerman MD PhD - 03/27/2024 EXAMINATION: XR SPINE THORACIC 2 VIEWS, XR SPINE LUMBAR 2 OR 3 VIEWS HISTORY: 73-year-old man with spinal fusion, follow-up COMPARISON: 02/07/2024 FINDINGS: 3 views of the lumbar spine and 2 views of the thoracic spine are obtained. Hyperkyphosis of the thoracic spine is unchanged. The superior thoracic spine is not well seen on lateral view due to overlapping tissues. Vertebral body heights are maintained. Mild to moderate multilevel degenerative disc disease throughout the visualized thoracic spine. Diffuse idiopathic skeletal hyperostosis. Posterior decompression and instrumented fusion at L4-L5 with combined interbody fusion. Instrumentation is intact. Mild to moderate degenerative disc disease at the nonfused levels. Anterior bridging osteophytes along the lumbar spine. Vertebral body heights are maintained. Inferior vena cava filter is noted. A left nephroureteral stent is noted. IMPRESSION: 1. Unchanged posterior decompression and combined anterior and posterior instrumented fusion at L4-L5. 2. Mild to moderate degenerative disease of the unfused thoracic and lumbar spine. Dictated by: Linda Smallwood M.D. The radiology attending physician has personally reviewed this study, and had reviewed and/or edited this written report and agrees with it. Electronically signed by: Oskar Ackerman MD, PHD Hayder Vu Jr., MD IMG XR PROCEDURES F inal Result documented in this encounter Visit Diagnoses Diagnosis S/P laminectomy with spinal fusion- Primary Arthrodesis status Lower extremity edema Edema S/P laminectomy with spinal fusion Arthrodesis status documented in this encounter Discontinued Medications Medication Sig Discontinue Reason Start Date End Da te dilTIAZem CD 120 mg 24 hr capsuleIndications:hyper tension Take 1 capsule (120 mg total) by mouth 2 (two) times a day 01/19/2024 03/27/2024 eszopiclone (LUNESTA) 3 mg tabletIndications:Insomn ia Take 1 mg by mouth nightly 01/19/2024 03/27/2024 documented as of this encounter Historical Medications * This list may reflect changes made after this encounter. eszopiclone (LUNESTA) 1 mg tabletIndication s:Insomnia Take 1 tablet (1 mg total) by mouth nightly 03/11/2024 cetirizine (ZyrTEC) 10 mg tabletIndication s:allergeis Take 1 tablet (10 mg total) by mouth daily before breakfast 0 03/17/2024 added in this encounter Care Teams Groutman Relationship Specialty Start Date End Date Rl Medina DO [address] [place] [address] PCP - General 08/09/17 05/25/24 documented as of this encounter
--- OUTSIDE RECORDS SUMMARY | 2024-11-05 19:19 | XMS_ITS | Encounter Summary ---
Author Organization [facility] Healthcare Address [address] [place] [address] Care Team Providers Care Bung Sewer Name Role Phone Rl Medina DO Primary Care Provider Reason for Visit * Auth/Cert (Routine) Specialty Diagnoses / Procedures Referred By Contac t Referred To Contact Diagnoses Nephrolithiasis Nephrolithiasis [N20.0] Procedures ND CYSTO/URETERO W/LITHOTRIPSY &INDWELL STENT INSRT URETEROSCOPY LITHOTRIPSY - LASER EXCHANGE STENT - URETERAL Referral ID Status Reason Start Date Expiration Date Visits Re quested Visits Authorized [id number] 1 1 Encounter Details Date Type Department Care Team (Late st Contact Info) Description 02/27/2024 10:40 AM CDT - 02/27/2024 12:40 PM CDT Surgery [facility] Operating Room [address] [place] [address] Temo Mcintosh MD [address] [place] [address] URETEROSCOPY Surgery Details Date/Time Status Location OR Service Patient Class Case Cl ass Case Type Trauma Case? 02/27/2024 10:40 AM Posted [facility] OR POD 1 323 Urology Outpatient Elective Panel 1 Procedure LRB Anes Op Region Wound Class Comments URETEROSCOPY Left General Class II - C lean Contaminated PLACEMENT STENT - URETERAL Left Choice Ureter Class II - Clean Contaminated REMOVAL NEPHROSTOMY TUBE Left General Class II - Clean Contaminated PYELOGRAM - RETROGRADE Left Choice Perineum Cl ass II - Clean Contaminated Surgeon Surgeon Role Service Panel Temo Mcintosh MD Primary Urology 1 Jessenia Ash MD Resident - Assisting Urology 1 Case Notes 02/03@0815- [place]ing Stone will come out for the patient per Luciana via email.EF 01/31@0639- Laser conflict error sent msg to Luciana.BIPIN documented in this encounter Social History Tobacco Use Types Packs/Day Years Used Date Smoking Tobacco: Former Cigarettes 1 1979 Passive Smoke Exposure: Never Smokeless Tobacco: Never Alcohol Use Standard Drinks/Week Comments Yes 14 (1 standard drink = 0.6 oz pu re alcohol) social C Utilities Answer Date Recorded In the past 12 months has [employer] electric, gas, oil, or water company threatened [...] any clubs o r organizations such as druze groups, unions, fraternal or athletic groups, or [...] on file 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 Diet: Hale diet: At first eat a bland diet; [...] Time Provider Department Center 03/18/2024 11:00 AM [facility] N IR 361 [facility] N IR [facility] Main G 03/27/2024 10:00 AM Marcial Vu Jr., MD SPINE BW4 OS 04/08/2024 10:00 AM [facility] S PROCEDURE ROOM [facility] EEG [facility] Main 04/09/2024 11:30 AM [facility] S PROCEDURE ROOM [facility] EEG [facility] Main 04/11/2024 8:20 AM [facility] BCT2 [facility] N CT [facility] Main G 04/11/2024 9:00 AM Katharine Hampton MD HEM [...] Sunday, 8 AM to 5:00 PM: call [phone] and ask for a member of your doctor's team. For urgent matters after 5:00 PM during the week or on weekends or holidays, call [phone] and ask to have the Urology Selector Packer Physician paged for you. documented in this [...] ound healing Take 1 tablet by mouth coding coordinator before breakfast ondansetron ODT (ZOFRAN-ODT) 4 [...] 1 tablet (20 mEq total) by mouth coding coordinator before breakfast 4 senna-docusate (PERICOLACE) 8.6-50 mg Take 1 tablet by mouth nightly 4 tamsulosin (FLOMAX) 0.4 mg extended release capsule Take 1 capsule (0.4 mg total) by mouth daily 30 capsule 02/27/20 25 arginine-glutamine- calcium HMB 7-7-1.5 gram [...] total) by mouth daily 30 capsule 11 02/27/2024 5 documented in this encounter Discharge [...] Preoperative Evaluation Record Evaluation type/location: TPAP from [facility] Planned procedure site: [facility] PVT OR (Pod 1) Date: 02/20/24 [...] DVT/PE episodes: 1. Pertinent negatives: CAD ; ME ; CABG ; atrial fibrillation; pacemaker/ICD; negative [...] were provided via telephone and faxed to [place]. Patient verbalized understanding of DOS instruction as [...] creatinine clearance is 75.1 ml/min. Per the [facility] Perioperative Antithrombotic Toolkit, we recommend discontinuing this medication for 72 hours prior to surgery to minimize the duration of anticoagulation discontinuation. Therapeutic anticoagulation should be resumed postoperatively as soon as possible. Alternative anticoagulation therapies can be used in the interim if acceptable. Discussed with surgeon's office. 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 Presence of right artificial knee [...] by mouth 2 (two) times a day umwivfdc-zjavwmhew-kazhabn HMB 7-7-1.5 gram powder in packet 02/14/2024 [...] taking differently: Take 1 tablet by mouth coding coordinator before breakfast tamsulosin (FLOMAX) 0.4 mg [...] mg tablet acyclovir (ZOVIRAX) 400 mg tablet zwudhjwi-mmljagyik-cwredma HMB 7-7-1.5 gram powder in packet ascorbic [...] Resident - Assisting Anesthesiologist: Larissa Mathews MD NAUMKEAG OPERATOR: Mildred Harrison CRNA; Olivia Silvestre CRNA Senior Commercial Loan Officer: Honorio Bhakta RN Scrub Relief: Marla Benson RN Scrub: Eula Marroquin RN; Nelly Lo RN TRAILER TANK TRUCK DRIVER: Robb Roth DATE OF SURGERY : 02/27/2024 [...] Implant Name Type Inv. Item Serial No. Skidder Loader Lot No. LRB No. Used Action [employer] [id number] 6fr 26cm 145cm Radiopaque Positioner Filiform Flexible Tip - [id number] Stent [employer] [id number] 6fr 26cm 145cm Radiopaque Positioner Filiform Flexible Tip [employer] [id number] Left 1 Implanted [employer] UNIVERSA 6FR 28CM FIRM POSITIONER MONOFILAMENT TETHER STENT [id number] - [id number] Stent [employer] UNIVERSA 6FR 28CM FIRM POSITIONER MONOFILAMENT TETHER STENT [id number] [employer] [id number] Left 1 Explanted Blood/Blood Products Transfused: None [...] Preoperative Assessment and Planning CPAP Clinic Location: [facility] The night before your surgery: * Do [...] Take on day of surgery if needed zunuzplj-kgszbtzxq-arwzyun HMB 7-7-1.5 gram powder in packet Don't [...] Planning Perioperative Nursing Note Telephone Preoperative Evaluation ([facility]) - TELEPHONE ONLY, NO PHYSICAL EXAM Date: 02/14/24 This assessment was completed with the patient's liability claims representative, [facility] facility . Vitals: 02/14/24 1000 Weight: 81.6 [...] by mouth 2 (two) times a day etkirqnl-apaoadczg-elcdgsh HMB 7-7-1.5 gram powder in packet Take [...] multivitamin tablet Take 1 tablet by mouth coding coordinator before breakfast ondansetron ODT (ZOFRAN-ODT) 4 [...] 1 tablet (20 mEq total) by mouth coding coordinator before breakfast senna-docusate (PERICOLACE) 8.6-50 mg Take 1 tablet by mouth nightly (Patient taking differently: Take 1 tablet by mouth coding coordinator before breakfast) Xarelto 15 mg tablet Take 1 tablet (15 mg total) by mouth 2 (two) times a day For 21 days Implants Bone Cement [employer] 6197-9-010 Simplex P Full Dose Radiopaque Preblend Cement Bone Tobramycin - S0- [id number] - Implanted (Right) Knee Inventory item: [employer] Simplex P Full Dose Radiopaque Preblend Cement Bone Bhtbtcejvv4779-3-420 Model/Cat number: [id number] Serial number: 0 Skidder Loader: [employer] Lot number: [id number] Device identifier: [id number] Device identifier type: GS1 As of 09/30/2019 Status: Implanted Other - see comments [employer]o [id number] Kandace II 15mm Constrain Knee 5-6 Insert Articular Uhmwpe- S0 - [id number] - Implanted (Right) Knee Inventory item: [employer]RICH[employer]/ORTHO Kandace Ii 15mm Constrain Knee 5-6 Insert ArticularUhmwpe [id number] Model/Cat number: [id number] Serial number: 0 Skidder Loader: [employer] Lot number: [id number] As of 09/30/2019 Status: Implanted [employer]Ortho [id number] Legion 10mm Screw Knee 6 Wedge Femoral - S0 - [id number] -Implanted (Right) Knee Inventory item: [employer]RICHCO/ORTHO Legion 10mm Screw Knee 6 Wedge Femoral [id number] Model/Cat number: [id number] Serial number: 0 Skidder Loader: [employer]Ortho Device identifier: [id number] Device identifier type: [facility] As of 09/30/2019 Status: Implanted [employer]/Ortho [id number] Legion Constrain Knee Right 6 Component Femoral Oxinium - S0 - [id number] - Implanted (Right) Knee Inventory item: [employer]RICHCO/ORTHO Legion Constrain Knee Right 6 Component Femoral Oxinium [id number] Model/Cat number: [id number] Serial number: 0 Skidder Loader: [employer]Ortho Lot number: [id number] As of 09/30/2019 Status: Implanted [employer]/Ortho [id number] Legion 5mm Alcon Step Knee Right Medial Left Lateral 5-6 Wedge - S0 - [id number] - Implanted (Right) Knee Inventory item: [employer]RICH[employer]/ORTHO Legion 5mm Alcon Step Knee Right Medial Left Lateral5-6 Wedge [id number] Model/Cat number: [id number] Serial number: 0 Skidder Loader: [employer]Ortho Device identifier: [id number] Device identifier type: [facility] As of 09/30/2019 Status: Implanted [employer]/Ortho [id number] Legion 15mm 160mm Press Fit Knee Stem Femoral - S0 - [id number] - Implanted (Right) Knee Inventory item: [employer]RICHCO/ORTHO Legion 15mm 160mm Press Fit Knee Stem Femoral [id number] Model/Cat number: [id number] Serial number: 0 Skidder Loader: [employer]Ortho Lot number: [id number] As of 09/30/2019 Status: Implanted [employer]/Ortho [id number] Legion 10mm Screw Knee 6 Wedge Femoral - S0 - [id number] -Implanted (Right) Knee Inventory item: [employer]RICHCO/ORTHO Legion 10mm Screw Knee 6 Wedge Femoral [id number] Model/Cat number: [id number] Serial number: 0 Skidder Loader: [employer]Ortho Lot number: [id number] As of 09/30/2019 Status: Implanted [employer]/Ortho [id number] Legion Revision Knee Right 5 Baseplate Tibial - S0 - [id number] - Implanted (Right) Knee Inventory item: [employer]RICH[employer]/ORTHO Legion Revision Knee Right 5 Baseplate Tibial [id number] Model/Cat number: [id number] Serial number: 0 Skidder Loader: [employer]Ortho Lot number: [id number] Device identifier: [id number] Device identifier type: GS1 As of 09/30/2019 Status: Implanted [employer]/Ortho [id number] Legion 15mm 160mm Press Fit Knee Stem Femoral - S0 - [id number] - Implanted (Right) Knee Inventory item: [employer]RICHCO/ORTHO Legion 15mm 160mm Press Fit Knee Stem Femoral [id number] Model/Cat number: [id number] Serial number: 0 Skidder Loader: [employer]/Ortho Lot number: [id number] Device identifier: [id number] Device identifier type: GS1 As of 09/30/2019 Status: Implanted [employer] 5517-F-501 Triathlon Cruciate Retain Bead Knee Left 5 Component Femoral Pa - Sn/A - [id number] - Implanted (Left) Knee Inventory item: [employer] Triathlon Cruciate Retain Bead Knee Left 5 Component Femoral Pa 5517-F-501 Model/Cat number: [id number] Serial number: N/A Skidder Loader: [facility] Lot number: [id number] Device identifier: [id number] Device identifier type: GS1 As of 10/17/2021 Status: Implanted [facility] 5536-B-600 Triathlon Knee 6 Baseplate Tibial Tritanium - Sn/A - [id number] - Implanted (Left) Knee Inventory item: [employer] Triathlon Knee 6 Baseplate Tibial Tritanium 5536-B-600 Model/Cat number: [id number] Serial number: N/A Skidder Loader: [employer] Lot number: [id number] Device identifier: [id number] Device identifier type: GS1 As of 10/17/2021 Status: Implanted [employer] 7294-F-282-E Insert Tibial Triathlon 6 H10mm Knee Bearing Condylar Stabilize Sterile - Sn/A - [id number] - Implanted (Left) Knee Inventory item: [employer] Insert Tibial Triathlon 6 H10mm Knee Bearing Condylar Stabilize Sterile 0182-Z-850-E Model/Cat number: [id number] Serial number: N/A Skidder Loader: [facility] Lot number: [id number] Device identifier: [id number] Device identifier type: GS1 As of 10/17/2021 Status: Implanted Stent [employer] Universa 6fr 28cm Firm Positioner Monofilament Tether Stent C99637 - [id number] -Implanted (Left) Ureter Inventory item: [employer] UNIVERSA 6FR 28CM FIRM POSITIONER MONOFILAMENT TETHER STENT [id number]/Cat number: [id number] Skidder Loader: [employer] Lot number: [id number] Size: 6x28 Device identifier: [id number] Device identifier type: GS1 As of 10/18/2023 Status: Implanted Type Not Specified [facility] 6197-9-010 Simplex P Full Dose Radiopaque Preblend Cement Bone Tobramycin - [id number] - Implanted (Right) Knee Inventory item: [employer] Simplex P Full Dose Radiopaque Preblend Cement Bone Pvtxpppjzm0630-5-936 Model/Cat number: [id number] Skidder Loader: [facility] Device identifier: [id number] Device identifier type: GS1 As of 09/30/2019 Status: Implanted [employer]ource Crushed Chip Frozen Graft 30ml Bone Cancellous [id number] - [id number] - Implanted Spine Lumbar Inventory item: [employer] Crushed Chip Frozen Graft 30ml Bone Cancellous 35907891 Model/Cat number: [id number] Skidder Loader: [employer] Lot number: [id number] As of 10/23/2023 Status: Implanted [employer] Inc Allograft Bone Putty 2.5cc 700-025 - [id number] - Implanted Spine Lumbar Inventory item: [employer] Allograft Bone Putty 2.5CC 700-025 Model/Cat number: [id number] Skidder Loader: [employer] Lot number: [id number] Device identifier: [id number] Device identifier type: GS1 As of 10/23/2023 Status: Implanted [employer] Creo Od7.5 Mm L55 Mm Thread Polyaxial Spine Screw Bone Titanium 5146.1757 - [id number] - Implanted Spine Lumbar Inventory item: [employer] Creo Od7.5 Mm L55 Mm Thread Polyaxial Spine Screw Bone Titanium 5146.1757 Model/Cat number: [id number] Skidder Loader: [employer] As of 10/23/2023 Status: Implanted [employer] Creo Od7.5 Mm L50 Mm Thread Polyaxial Spine Screw Bone Titanium 5146.1752 - [id number] - Implanted Spine Lumbar Inventory item: [employer] Creo Od7.5 Mm L50 Mm Thread Polyaxial Spine Screw Bone Titanium 5146.1752 Model/Cat number: [id number] Skidder Loader: [employer] As of 10/23/2023 Status: Implanted [employer] Creo Thread Spinal Cap Locking Nonsterile 1119.0010 - [id number] - Implanted Spine Lumbar Inventory item: [employer] Creo Thread Spinal Cap Locking Nonsterile 1119.0010 Model/Cat number: [id number] Skidder Loader: [employer] As of 10/23/2023 Status: Implanted [employer] Implant Spinal Sable 02v10id 7-14mm 15 Deg 1172.2121s - [id number] - Implanted Spine Lumbar Inventory item: [employer] Implant Spinal Sable 15d59hw 7-14mm 15 Deg 1172.2121S Model/Cat number: [id number] Skidder Loader: [employer] As of 10/23/2023 Status: Implanted [employer] Creo 5.5mm 45mm Curve Daniel Spinal Titanium 1119.7045 - [id number] - Implanted Spine Lumbar Inventory item: [employer] Creo 5.5mm 45mm Curve Daniel Spinal Titanium 1119.7045 Model/Cat number: [id number] Skidder Loader: [employer] As of 10/23/2023 Status: Implanted [employer] Rex Tulip Navalign 30mm 7fr 50mm 65cm Introducer Sheath [id number] - [id number] -Implanted Inventory item: [employer] Rex Tulip Navalign 30mm 7fr 50mm 65cm Introducer Sheath [id number]/Cat number: [id number] Skidder Loader: [employer] Lot number: [id number] As of 11/09/2023 Status: Implanted SKIN Piercings Remaining: No Wound (LDAs) Type of Wound (LDA): (healing wound to buttocks- per LTC facility) SCREENINGS Joni index score: 30 PATIENT CARE PLANNING Advance Directives (For Healthcare) Have you reviewed your Advance Directive and is it valid for this stay?: Yes Advance Directive: Patient has advance directive, copy in chart 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 You should leave your valuables and any jewelry at home. No metal or piercings are allowed in the operating room. You should bring your insurance card, a photo ID (example: Five Piece Expansion Maker Hand's License) and a method of payment for [...] Remove nail coverings, artificial nails and nail moldovan. Place clean linens on your bed the [...] questions, please call the CPAP Staff at [phone], Sunday-Sunday 8am-4:30pm. All patients should read the below section: COVID 19 Updates & Visitor Policy: Please access [email or web address] for the most updated information. Information on [facility] & the Orthopedic Center: Please view [email or web address] (Patient & Visitor Information) for additional details regarding Advanced Directive forms, AWARE, directions, parking information, lodging, Internet access, dining and more. Information on [facility] or [facility] ([facility]): Please view [email or web address] (Patient and Visitor Information) for parking/directions and more. For MyChart information, to activate account or password recovery, please go to [email or web address] or call [phone] (toll-free: [phone]), Sun- Sunday 8am-5pm. Information for Suicide Prevention: National Suicide Prevention Lifeline (5-254- 040-CYOA (1642)) or call or text 739. Chat resources: [employer]org. Surgery Times: For patients having surgery @ [facility] or [facility] [place] ([facility]), if your surgeon's office has not notified you of your surgery time by NOON THE BUSINESS DAY BEFORE your surgery, please call [phone] and ask for your surgeon's office Dr. [...] 02/27/2024 10:14 AM CDT Nephrolithiasis Case Notes - Lansing Stone will come out for the patient per Luciana via email.EF 01/31@39- Laser conflict error sent msg to Luciana.EF EXCHANGE NEPHROSTOMY TUBE 02/27/2024 10:14 AM CDT Nephrolithiasis Case Notes - Lansing Stone will come out for the patient per Luciana via email.EF 01/31@39- Laser conflict error sent msg to Luciana.EF EXCHANGE STENT - URETERAL 02/27/2024 10:14 AM CDT Nephrolithiasis Case Notes - Lansing Stone will come out for the patient per Luciana via email.EF 01/31@39- Laser conflict error sent msg to Luciana.BIPIN URETEROSCOPY 02/27/2024 10:14 AM CDT Nephrolithiasis Case Notes 02/03@0815- Lansing Stone will come out for the patient per Luciana via email.EF 01/31@0639- Laser conflict error sent msg to Luciana.BIPIN documented in this encounter Results * FL Fluoroscopy < 1 Hour (02/27/2024 11:50 AM CDT) Narrative [facility] - 02/27/2024 11:51 AM CDT The images [...] Enterococcus faecalis (.) Organism ESCHERICHIA COLI [facility] Organism ESCHERICHIA COLI [facility] Organism ENTEROCOCCUS FAECALIS [facility] Urine, bladder 02/27/2024 10 :57 AM CDT 02/27/2024 2:16 PM CDT Narrative [facility] - 03/02/2024 1:39 PM CDT Bladder Urine Indications for Culture:->Urology patient Specimen received in a sterile container. Testing performed by [facility] Microbiology Laboratory ([phone]) Organism Antibiotic Method Susceptibility Escherichia coli Ampicillin [...] MICROBIOLOGY - GENER AL ORDERABLES Final Result Performing Organization Address City/State/[facility] Co de Phone Number [facility] Department [place] [address] documented in this encounter Visit Diagnoses Diagnosis [...] Given 02/27/2024 10:04 AM CDT 20 mg iothalamate meglumine (CONRAY) 60 % injection As needed, Starting on Sun02/27/24 at 1125, Intra-Op Given 02/27/2024 11:25 AM CDT 20 mL Lactated Ringer's (LR) infusion 30 mL/hr, [...] chloride 0.9% irrigation As needed, Starting on Sun02/27/24 at 1022, Intra-Op Given 02/27/2024 10:22 AM CDT 3,000 mL documented in this encounter Discontinued Medications [...] ative free injection 50 mcg 2 02/27/2024 Lactated Ringer's (LR) infusion 2 metoclopramide (REGLAN) 5 mg /mL injection 10 mg 1 02/27/2024 naloxone (NARCAN) 0.4 mg/mL injection 0.04-0.4 mg 1 02/27/2024 ondansetron (ZOFRAN) injection 4 mg 1 02/26 sodium chloride 0.9% flush 0.5-20 mL 1 02/04 Discharge Count Last Ordered Date First Orde red Date DISCHARGE PATIENT 1 02/27/2024 documented in this encounter Care Teams Bung Sewer Relationship Specialty Start Date End Date Rl Medina DO [address] [id number] PCP - General 08/09/17 05/25/24 documented as of this encounter
--- OUTSIDE RECORDS SUMMARY | 2024-11-05 19:19 | XMS_ITS | Encounter Summary ---
Author Organization [facility] Healthcare Address [address] [place] [address] Care Team Providers Care Torch Heater Name Role Phone Rl Medina DO Primary Care Provider Reason for Referral * Diagnostic Imaging (Routine) - Closed Specialty Diagnoses / Procedures Referred By Contac t Referred To Contact Diagnoses S/P laminectomy with spinal fusion Procedures XR Spine Lumbar 2 or 3 Views Marcial Vu Jr., MD [address] [place], [place] [address] Phone: tel: fax: [facility] Radiology [address] [place] [phone] Phone: tel: Referral ID Status Reason Start Date Expiration Date Visits Re quested Visits Authorized [id number] Closed 03/18/2024 04/17/2025 1 1 * Diagnostic Imaging (Routine) - Closed Specialty Diagnoses / Procedures Referred By Contac t Referred To Contact Diagnoses S/P laminectomy with spinal fusion Procedures XR Spine Thoracic 2 Views Marcial Vu Jr., MD [address] [place], [place] [address] Phone: tel: fax: [facility] Radiology [address] [place] [phone] Phone: tel: Referral ID Status Reason Start Date Expiration Date Visits Re quested Visits Authorized [id number] Closed 03/18/2024 04/17/2025 1 1 Reason for Visit * Diagnostic Imaging (Routine) - Closed Specialty Diagnoses / Procedures Referred By Contac t Referred To Contact Diagnoses S/P laminectomy with spinal fusion Procedures XR Spine Thoracic 2 Views Marcial Vu Jr., MD [address] [facility] 6A/6B/[address] [address] Phone: tel: fax: [facility] Radiology [address] [place] [address] Suite [facility] [place] [phone] Phone: tel: Referral ID Status Reason Start Date Expiration Date Visits Re quested Visits Authorized [id number] Closed 03/18/2024 04/17/2025 1 1 Encounter Details Date Type Department Care Team (Latest Contact Info) Description 03/27/2024 9:30 AM CDT - 03/27/2024 11:59 PM CDT Hospital Encounter [facility] Radiology [address] [place] [address] [place] [phone] S/P laminectomy with spinal fusion Discharge Disposition: Discharge to home or self care Social History Tobacco Use Types Packs/Day Years Used Date Smoking Tobacco: Former Cigarettes 1 11 - 1979 Passive Smoke Exposure: Never Smokeless Tobacco: Never Alcohol Use Standard Drinks/Week Comments Yes 14 (1 standard drink = 0.6 oz pu re alcohol) social [facility] Utilities Answer Date Recorded In the past 12 months has [employer], gas, oil, or water [place] threatened to shut off services in your [...] on file 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 Gender Identity Not on file Sexual Orientation Not on file 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 Not on file [...] ound healing Take 1 tablet by mouth field crop grower before breakfast ondansetron ODT (ZOFRAN-ODT) 4 mg [...] 1 tablet (20 mEq total) by mouth field crop grower before breakfast 4 senna-docusate (PERICOLACE) 8.6-50 mg [...] VIEWS Schedule Routine, Read Routine (OP Routine) 03/27/2024 10:02 AM CDT S/P laminectomy with spinal fusion XR SPINE THORACIC 2 VIEWS Schedule Routine, Read Routine (OP Routine) 03/27/2024 10:02 AM CDT S/P laminectomy with spinal fusion [...] Electronically signed by: Oskar Ackerman MD, PHD Marcial Vu Jr., MD IMG XR PROCEDURES F inal Result * XR Spine Thoracic 2 Views (03/27/2024 [...] Electronically signed by: Oskar Ackerman MD, PHD Marcial Vu Jr., MD IMG XR PROCEDURES F inal Result documented in this encounter Visit Diagnoses Diagnosis S/P laminectomy with spinal fusion Arthrodesis status documented in this encounter Care Teams Torch Heater Relationship Specialty Start Date End Date Rl Medina DO [address] [place] [address] PCP - General 08/09/17 05/25/24 documented as of this encounter
--- OUTSIDE RECORDS SUMMARY | 2024-11-05 19:19 | XMS_ITS | Encounter Summary ---
Author Organization [facility] Healthcare Address [address] [place] [address] Care Team Providers Care Feeder Loader Name Role Phone Rl Medina DO Primary Care Provider [phone] Reason for Referral * Diagnostic Imaging (Routine) - Closed Specialty Diagnoses / Procedures Referred By Contac t Referred To Contact Diagnoses S/P laminectomy with spinal fusion Procedures XR Spine Thoracic 2 Views Marcial Vu Jr., MD [address] [facility] 6A/6B/[address] [place] [address] Phone: tel: fax: [facility] Radiology [address] [place] [phone] Phone: tel: Referral ID Status Reason Start Date Expiration Date Visits Re quested Visits Authorized [id number] Closed 02/07/2024 03/08/2025 1 1 * Diagnostic Imaging (Routine) - Closed Specialty Diagnoses / Procedures Referred By Contac t Referred To Contact Diagnoses S/P laminectomy with spinal fusion Procedures XR Spine Lumbar 2 or 3 Views Marcial Vu Jr., MD [address] [facility] 6A/6B/12[place], [place] [address] Phone: tel: fax: [facility] Radiology [address] [place] [phone] Phone: tel: Referral ID Status Reason Start Date Expiration Date Visits Re quested Visits Authorized [id number] Closed 02/07/2024 03/08/2025 1 1 Reason for Visit * Diagnostic Imaging (Routine) - Closed Specialty Diagnoses / Procedures Referred By Contac t Referred To Contact Diagnoses S/P laminectomy with spinal fusion Procedures XR Spine Lumbar 2 or 3 Views Marcial Vu Jr., MD [address] [facility] 6A/6B/12[place] [address] Phone: tel: fax: [facility] Radiology [address] [place] [address] [place] [address] Phone: tel: Referral ID Status Reason Start Date Expiration Date Visits Re quested Visits Authorized [id number] Closed 02/07/2024 03/08/2025 1 1 Encounter Details Date Type Department Care Team (Latest Contact Info) Description 02/07/2024 7:30 AM CDT - 02/07/2024 11:59 PM CDT Hospital Encounter [facility] Radiology [address] [place] [address] [place] [phone] S/P laminectomy with spinal fusion Discharge [...] Recorded In the past 12 months has [employer], gas, oil, or water [employer] threatened to shut off services in your [...] on file 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 Gender Identity Not on file Sexual Orientation Not on file 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 Not on file [...] by mouth early childhood assistant before breakfast ondansetron ODT (ZOFRAN-ODT) 4 mg [...] (20 mEq total) by mouth early childhood assistant before breakfast 4 senna-docusate (PERICOLACE) 8.6-50 mg [...] (OP Routine) S/P laminectomy with spinal fusion Once for 1 Occurrences starting 02/07/2024 until 02/07/2024 documented as of this encounter Procedures Procedure Name Priority Date/Time Associated Diagnosis Comments XR SPINE LUMBAR 2 OR 3 VIEWS Schedule Routine, Read Routine (OP Routine) 02/07/2024 8:40 AM CDT S/P laminectomy with spinal fusion XR SPINE THORACIC 2 VIEWS Schedule Routine, Read Routine (OP Routine) 02/07/2024 8:40 AM CDT S/P laminectomy with spinal fusion [...] status documented in this encounter Care Teams Feeder Loader Relationship Specialty Start Date End Date Rl Medina DO [address] [place] [address] PCP - General 08/09/17 05/25/24 documented as of this encounter
--- OUTSIDE RECORDS SUMMARY | 2024-11-05 19:20 | XMS_ITS | Encounter Summary ---
Author Organization [facility] Address [address] [place] [address] Phone Care Team Providers Care Support Analyst Name Role Phone Rl Medina DO Primary Care Provider Reason for Visit * Reason Onset Date Comments Appointment 12/11/2023 Encounter Details Date Type Department Care Team (Late st Contact Info) Description 12/11/2023 Telephone [facility] Orthopaedic Surgery [address] [facility] 6th [place] [address] [place] [address] Marcial Vu Jr., MD [address] [facility] [address] [place] [address] Appointment Social History Tobacco Use Types Packs/Day Years Used Date Smoking Tobacco: Former Cigarettes 1 09 05 969 - 1979 Passive Smoke Exposure: Never Smokeless Tobacco: Never Alcohol Use Standard Drinks/Week Comments Yes 14 (1 standard drink = 0.6 oz pu re alcohol) social [facility] Utilities Answer Date Recorded In the past 12 months has [employer], gas, oil, or water company threatened to [...] often do you attend chur ch or tenriism services? Never 11/30/2023 Do you belong to [...] alcohol? 4 or more times a week 12/11/2023 Q2: How many drinks containi ng alcohol do you have on a typical day when you are drinking? 1 or 2 Q3: How often do you have si x or more drinks on one occasion? Never 12/11/2023 Overall Financial Resource Strain (CARDIA) Ans[place] r [...] slept in a fpc (including now)? 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 [facility] requesting appt to be scheduled at [facility] due to location. Scheduled pt for clinic appt with Dr. Vu on 12/31 at 9:40am. At [facility]- Appt details provided to Daily. She will relay details to pt if he is discharged from [facility] priorto appt date. NCIAL ENGINEER documented in this encounter Plan of Treatment Not on file documented as of this encounter Visit Diagnoses Not on filedocumented in this encounter Care Teams Support Analyst Relationship Specialty Start Date End Date Rl Medina DO [address] [place] [address] PCP - General 08/09/17 05/25/24 documented as of this encounter
--- OUTSIDE RECORDS SUMMARY | 2024-11-05 19:20 | XMS_ITS | Encounter Summary ---
Author Organization [facility] Healthcare Address [address] [place] [address] Care Team Providers Care Mechanical Engineering Technologist Name Role Phone Rl Medina DO Primary Care Provider Reason for Referral * Cardiology (Routine) - Closed Specialty Diagnoses / Procedures Referred By Contac t Referred To Contact Diagnoses Lower extremity edema Procedures Transthoracic Echo (TTE) Limited/Followup Tae Raoms MD Phone: tel: fax: [address] [phone] Referral ID Status Reason Start Date Expiration Date Visits Re quested Visits Authorized [id number] Closed 12/19/2023 01/17/2025 1 1 ETIZER OPERATOR Encounter Details Date Type Department Care Team (Late st Contact Info) Description 12/19/2023 Orders Only Physical Medicine and Rehabilitation Tae Ramos MD [address] [facility] [address] [address] Lower extremity edema (Primary Dx) Social History Tobacco Use Types Packs/Day Years Used Date Smoking Tobacco: Former Cigarettes 1 11 1 9 - 1979 Passive Smoke Exposure: Never Smokeless Tobacco: Never Alcohol Use Standard Drinks/Week Comments Yes 14 (1 standard drink = 0.6 oz pu re alcohol) social [facility] Utilities Answer Date Recorded In the past 12 months has e [employer], gas, oil, or water company threatened to [...] attend chur ch or sikh services? Never 11/30/2023 Do you belong to [...] slept in a longterm (including now)? 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 Not on file Not on file documented as of this encounter Plan of Treatment Not on file documented as of this encounter Results * TRANSTHORACIC ECHO (TTE) LIMITED/FOLLOW UP W LTD DOPPLER/CF W CONTRAST (12/20/2023 4:16 PM PALLETIZER OPERATOR) LV EF 55 % CARDIOREPORT Anatomical Region Laterality Modality Ultrasound 12/20/2023 3:15 PM PALLETIZER OPERATOR Narrative 12/20/2023 4:36 PM PALLETIZER OPERATOR Patient name: Hira Evans Date of test: 12/20/2023 Type of test: [facility] #: [id number] Date of : 1950 (M) Fire Patroller: Mikayla Saravia RDCS Referring Physician: TAE RAMOS MD Contrast Agent: 0.30 ml Definity Administered, (1.20 ml wasted). Contrast Administered by: Shani Youngblood RN Supervised/Interpreted by: Anibal Heath MD Diagnosis: Edema Location: [facility] Reason for test: Edema MV Structure: normal, ?MV Motion: normal, ?? Mitral Annulus: normal AV Structure: tricuspid and is Normal, ?? AV Motion: Normal Aotic root: , ?TM: , ?? PV: Valvular Vegetations: , ?Mass/Thrombi: RA: Measurements: ?M-Mode ?Normal ? Aotic Root: ? <3.8 ? LA: ? <4.0 ? RV: ? <2.8 ? LV(ED): ? <5.7 ? LV(ES): ? Variable ?2D Linear Normal ? Aotic Root: ? <4.0 ? Ao Indexed: ? <2.0 ? LA: ? <4.0 ? RV: ? <4.2 ? LV(ED): ? 4.3 cm ?<5.9 ? LV(ES): ? 2.5 cm ?<4.0 ?2D Vol. ?? Normal ?Indexed ?? Indexed Normal RA: ? 11-39 ? LA: ? 16-34 ? RV: ? <12.7 ? LV(ED): ? 117.0 ml ??62-150 ?57.2 ml/M2 ?<75 ? LV(ES): ? 53.0 ml ?? 21-61 ? 25.9 ml/M2 ?<32 ?3D Vol. ? Indexed Normal LV(ED): ?<75 ? LV(ES): ?<32 ? LV EF: 55 % ?? (Normal: >=52%) ?? LV Mass Index (Area-Length): 0.5 g/m2 ?(Normal: 50-102 g/m2) Wall Motion Scoring (1=Normal 2=Hypo 3=Akinetic 4=Dyskin./Aneurysm 0=Not visualized) Parasternal Long Wagner:MAS=1 BAS=1 MIL=1 RENEE=1 Parasternal Short Wagner:MAS=1 MIS=1 SC=1 MIL=1 MAL=1 MA=1 Apical 4 Chambers:=1 MIS=1 BIS=1 BAL=1 MAL=1 AL=1 AC=1 Apical 2 Chambers:AI=1 SC=1 BI=1 BA=1 MA=1 AA=1 AC=1 LV Global Longitudinal Strain: RV Global Longitudinal Strain: LV Function: Normal LV Ejection Fraction, (EF=52-72%) RV Function: mild global hypokinesis Septal Motion: normal Pericardial Effusion: none seen Atrial Septum: DOPPLER/COLOR FLOW DOPPLER RESULTS: Diastolic Function: Impaired Relaxation Tricuspid Valve: mild TV regurgitation Pulmonic Valve: normal PV AV Regurgitation: No AR seen AV Stenosis: no AV Area: ??cm2 AV Pressure Gradient (mmHg): Mean: 0, Peak:0 MV Regurgitation: No MR seen MV Stenosis: ??no MS MV Area: ??cm2 MV Pressure Gradient (mmHg): Mean: 0 MV ERO: ??cm Regurg. Vol.: ??ml/beat Regurg. Frac.: ??% PA Pressure: ??mmHg DOPPLER/COLOR FOLOW DOPPLER COMMENTS: No AR seen, No MR seen, no , ??no MS, mild TV regurgitation, normal PV. CONTRAST: 0.30 ml Definity Administered, (1.20 ml wasted). SUMMARY: Limited TTE. Grossly normal LV size and systolic function. Miild concentric LVH. LVEF 55-60%. Normal RV size with mildly reduced systolic function. Mild TR. Normal PASP. Normal IVC. ??E/A reversal c/w impaired diastolic function. See study dated 10/2023 for more complete report. Confirmed on ??12/20/2023 - 16:36:25 by Anibal Heath MD By signing this report, the attending diesel service technician certifies that he or she has personally supervised and interpreted the echocardiogram and has reviewed and or edited and agrees with the written comments contained within the report. Procedure Hernán Collado MD - 12/20/2023 Patient name: Hira Evans Date of test: 12/20/2023 Type of test: Limited TTE [facility] #: 0 Date of : 1950 (M) Fire Patroller: Mikayla Saravia RDCS Referring Physician: TAE RAMOS MD Contrast Agent: 0.30 ml Definity Administered, (1.20 ml wasted). Contrast Administered by: Shani Youngblood RN Supervised/Interpreted by: Anibal Heath MD Diagnosis: Edema Location: [facility] Reason for test: Edema MV Structure: normal, MV Motion: normal, Mitral Annulus: normal AV Structure: tricuspid and is Normal, AV Motion: Normal Aotic root: , TM: , PV: Valvular Vegetations: , Mass/Thrombi: RA: Measurements: M-Mode Normal Aotic Root: <3.8 LA: <4.0 RV: <2.8 LV(ED): <5.7 LV(ES): Variable 2D Linear Normal Aotic Root: <4.0 Ao Indexed: <2.0 LA: <4.0 RV: <4.2 LV(ED): 4.3 cm <5.9 LV(ES): 2.5 cm <4.0 2D Vol. Normal Indexed Indexed Normal RA: 11-39 LA: 16-34 RV: <12.7 LV(ED): 117.0 ml 62-150 57.2 ml/M2 <75 LV(ES): 53.0 ml 21-61 25.9 ml/M2 <32 3D Vol. Indexed Normal LV(ED): <75 LV(ES): <32 LV EF: 55 % (Normal: >=52%) LV Mass Index (Area-Length): 0.5 g/m2 (Normal: 50-102 g/m2) Wall Motion Scoring (1=Normal 2=Hypo 3=Akinetic 4=Dyskin./Aneurysm 0=Not visualized) Parasternal Long Wagner:MAS=1 BAS=1 MIL=1 RENEE=1 Parasternal Short Wagner:MAS=1 MIS=1 SC=1 MIL=1 MAL=1 MA=1 Apical 4 Chambers:=1 MIS=1 BIS=1 BAL=1 MAL=1 AL=1 AC=1 Apical 2 Chambers:AI=1 SC=1 BI=1 BA=1 MA=1 AA=1 AC=1 LV Global Longitudinal Strain: RV Global Longitudinal Strain: LV Function: Normal LV Ejection Fraction, (EF=52-72%) RV Function: mild global hypokinesis Septal Motion: normal Pericardial Effusion: none seen Atrial Septum: DOPPLER/COLOR FLOW DOPPLER RESULTS: Diastolic Function: Impaired Relaxation Tricuspid Valve: mild TV regurgitation Pulmonic Valve: normal PV AV Regurgitation: No AR seen AV Stenosis: no AV Area: cm2 AV Pressure Gradient (mmHg): Mean: 0, Peak:0 MV Regurgitation: No MR seen MV Stenosis: no MS MV Area: cm2 MV Pressure Gradient (mmHg): Mean: 0 MV ERO: cm Regurg. Vol.: ml/beat Regurg. Frac.: % PA Pressure: mmHg DOPPLER/COLOR FOLOW DOPPLER COMMENTS: No AR seen, No MR seen, no , no MS, mild TV regurgitation, normal PV. CONTRAST: 0.30 ml Definity Administered, (1.20 ml wasted). SUMMARY: Limited TTE. Grossly normal LV size and systolic function. Miild concentric LVH. LVEF 55-60%. Normal RV size with mildly reduced systolic function. Mild TR. Normal PASP. Normal IVC. E/A reversal c/w impaired diastolic function. See study dated 10/2023 for more complete report. Confirmed on 12/20/2023 - 16:36:25 by Anibal Heath MD By signing this report, the attending diesel service technician certifies that he or she has personally supervised and interpreted the echocardiogram and has reviewed and or edited and agrees with the written comments contained within the report. Tae Ramos MD CV ECHO PROCEDURES Final R esult documented in this encounter Visit Diagnoses Diagnosis Lower extremity edema- Primary Edema Lower extremity edema Edema documented in this encounter Care Teams Mechanical Engineering Technologist Relationship Specialty Start Date End Date Rl Medina DO [address] [place] [address] PCP - General 08/09/17 05/25/24 documented as of this encounter
--- OUTSIDE RECORDS SUMMARY | 2024-11-05 19:20 | XMS_ITS | Encounter Summary ---
Author Organization [facility] Healthcare Address [address] [place] [address] Care Team Providers Care Plant Operator Name Role Phone Rl Medina DO Primary Care Provider Encounter Details Date Type Department Care Team (Late st Contact Info) Description 12/17/2023 Orders Only [facility] [phone] Unknown, Notinfile Social History Tobacco Use Types Packs/Day Years Used Date Smoking Tobacco: Former Cigarettes 1 11 969 - 1979 Passive Smoke Exposure: Never Smokeless Tobacco: Never Alcohol Use Standard Drinks/Week Comments Yes 14 (1 standard drink = 0.6 oz pu re alcohol) social C Utilities Answer Date Recorded In the past 12 months has [employer], gas, oil, or water [employer] threatened to shut off services in your [...] often do you attend chur ch or orthodox services? Never 11/30/2023 Do you belong to [...] slept in a correction (including now)? 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 Not on file Not on file documented as of this encounter Plan of Treatment Not on file documented as of this encounter Procedures Procedure Name Priority Date/Time Associated Diagnosis Comments CS GLUCOSE Routine Gen Lab 12/17/2023 9:00 PM RETAIL LINK ANALYST CS BASIC METABOLIC PANEL Routine Gen Lab 12/17/2023 9:00 PM RETAIL LINK ANALYST EGFR Routine Gen Lab 12/17/2023 9:00 PM RETAIL LINK ANALYST CS GLUCOSE Routine Gen Lab 12/17/2023 7:28 AM RETAIL LINK ANALYST EGFR Routine Gen Lab 12/17/2023 7:28 AM RETAIL LINK ANALYST DIFFERENTIAL AUTO Routine Gen Lab 12/17/2023 7:2 8 AM RETAIL LINK ANALYST COMPREHENSIVE METABOLIC PANEL WITHOUT GLUCOSE (OUTREACH) Routine Gen Lab 12/17/2023 7:28 AM RETAIL LINK ANALYST CBC WITH AUTO DIFFERENTIAL Routine Gen Lab 12/17/2023 7:28 AM RETAIL LINK ANALYST MAGNESIUM Routine Gen Lab 12/17/2023 7:28 AM RETAIL LINK ANALYST documented in this encounter Results * eGFR (12/17/2023 9:00 PM RETAIL LINK ANALYST) eGFR >90 >=60 mL/min/1. 73 m2 [facility] Comment: Interpretive Data Reference Interval Normal [...] was last reviewed 2021. Testing performed by: [facility], [address] [place]., [address] Blood 12/17/2023 9:00 PM RETAIL LINK ANALYST 12/18/2023 1:10 AM RETAIL LINK ANALYST Medicine LAB BLOOD ORDERABLES Final Resul t [facility] Department [place] [address] * (ABNORMAL) CS BASIC METABOLIC PANEL (12/17/2023 9:00 PM RETAIL LINK ANALYST) Sodium 140 135 - 145 mmol/L [facility] Comment:Testing performed by : [facility], [address] [place] [address]., [id number] Potassium, pl 3.5 3.3 - 4.9 mmol/L [facility] Comment:Testing performed by : [facility], [address] [place]., [address] Chloride 100 97 - 110 mmol/L [facility] Comment:Testing performed by : [facility], [address] [place]., [address] CO2 31 22 - 32 mmol/L [facility] Comment:Testing performed by : [facility], [address] [place]., [address] Anion gap 9 2 - 15 mmol/L [facility] Comment:Testing performed by : [facility], [address] [place]., [address] BUN 17 6 - 25 mg/dL [facility] Comment:Testing performed by : [facility], [address] [place]., [address] Creatinine 0.76(L) 0.80 - 1.30 mg/dL [facility] Comment:Testing performed by : [facility], [address] [place]., [address] Calcium 9.1 8.5 - 10.3 mg/dL [facility] Comment:Testing performed by : [facility], [address] [place]., [address] Blood 12/17/2023 9:00 PM RETAIL LINK ANALYST 12/18/2023 1:05 AM RETAIL LINK ANALYST Medicine LAB BLOOD ORDERABLES Final Resul t Performing Organization Address [facility] de Phone Number [facility] Department [place] [address] * CS GLUCOSE (12/17/2023 9:00 PM RETAIL LINK ANALYST) [facility] Signature Glucose 95 70 - 199 mg/dL [facility] Comment: Interpretive Data Fasting glucose >/= [...] was last revised 2022. Testing performed by: [facility], [address] [place]., [address] Blood 12/17/2023 9:00 PM RETAIL LINK ANALYST 12/18/2023 1:05 AM RETAIL LINK ANALYST [employer] [facility] LAB BLOOD ORDERABLES Final Resul t Performing Organization Address City/[facility]/ZIP Co de Phone Number [facility] Department [place] [address] * Magnesium (12/17/2023 7:28 AM RETAIL LINK ANALYST) [facility] Magnesium 2.0 1.4 - 2.5 mg/dL [facility] Comment:Testing performed by : [facility], [address] [place] [address], [place]., [address] Blood 12/17/2023 7:28 AM RETAIL LINK ANALYST 12/17/2023 11:03 AM RETAIL LINK ANALYST us Notinfile Unknown LAB BLOOD ORDERABLES Final Res ult Performing Organization Address [facility] de Phone Number [facility] Department [place] [address] * eGFR (12/17/2023 7:28 AM RETAIL LINK ANALYST) [facility] eGFR >90 >=60 mL/min/1. 73 m2 [facility] Comment: Interpretive Data Reference Interval Normal [...] was last reviewed 2021. Testing performed by: [facility], [address] [place]., [address] Blood 12/17/2023 7:28 AM RETAIL LINK ANALYST 12/17/2023 11:03 AM RETAIL LINK ANALYST us Notinfile Unknown LAB BLOOD ORDERABLES Final Res ult [facility] Department [place] [address] * (ABNORMAL) Comprehensive metabolic panel, without glucose (Outreach) (12/17/2023 7:28 AM RETAIL LINK ANALYST) Sodium 141 135 - 145 mmol/L [facility] Comment:Testing performed by : [facility], [address] [place] [address]., [address] Potassium, pl 2.7(L) 3.3 - 4.9 mmol/L [facility] Comment:Testing performed by : [facility], [address] [place]., [address] Chloride 99 97 - 110 mmol/L [facility] Comment:Testing performed by : [facility], [address] [place]., [address] CO2 31 22 - 32 mmol/L [facility] Comment:Testing performed by : [facility], [address] [place] [address]., [address] Anion gap 11 2 - 15 mmol/L [facility] Comment:Testing performed by : [facility], [address] [place]., [address] BUN 19 6 - 25 mg/dL [facility] Comment:Testing performed by : [facility], [address] [place]., [address] Creatinine 0.74(L) 0.80 - 1.30 mg/dL [facility] Comment:Testing performed by : [facility], [address] [facility], [address] Calcium 9.1 8.5 - 10.3 mg/dL [facility] Comment:Testing performed by : [facility], [address] [facility], [address] Protein, pl 6.5 6.5 - 8.5 g/dL [facility] Comment:Testing performed by : [facility], [address] [facility], [address] Albumin 3.2(L) 3.5 - 5.0 g/dL [facility] Comment:Testing performed by : [facility], [address] [facility], [address] Bilirubin, total 0.3 0.1 - 1.2 mg/dL [facility] Comment:Testing performed by : [facility], [address] [facility], [address] Alk phos 95 40 - 130 Units/L [facility] Comment:Testing performed by : [facility], [address] [facility], [address] AST 25 10 - 50 Units/L [facility] Comment:Testing performed by : [facility], [address] [place] [address], [address] ALT 33 7 - 55 Units/L [facility] Comment:Testing performed by : [facility], [address] [place] [address], [address] Blood 12/17/2023 7:28 AM RETAIL LINK ANALYST 12/17/2023 10:56 AM RETAIL LINK ANALYST us Notinfile Unknown LAB BLOOD ORDERABLES Final Res ult [facility] Department [place] [address] * CS GLUCOSE (12/17/2023 7:28 AM RETAIL LINK ANALYST) [facility] Glucose 100 70 - 199 mg/dL [facility] Comment: Interpretive Data Fasting glucose >/= [...] was last revised 2022. Testing performed by: [facility], [address] [place] [address]., [address] Blood 12/17/2023 7:28 AM RETAIL LINK ANALYST 12/17/2023 10:56 AM RETAIL LINK ANALYST us Notinfile Unknown LAB BLOOD ORDERABLES Final Res ult [facility] Department [place] [address] * Differential, auto (12/17/2023 7:28 AM RETAIL LINK ANALYST) [facility] Neutrophil abs 3.2 1.5 - 6.5 K/cumm [facility] Comment:Testing performed by : [facility], [address] [place] [address]., [address] Imm gran abs 0.0 0.0 - 0.1 K/cumm [facility] Comment:Testing performed by : [facility], [address] [place] [address]., [address] Lymphocyte abs 1.2 0.8 - 3.3 K/cumm [facility] Comment:Testing performed by : [facility], [address] [place]., [address] Monocyte abs 0.6 0.2 - 0.8 K/cumm [facility] Comment:Testing performed by : [facility], [address] [place]., [address] Eosinophil abs 0.2 0.0 - 0.5 K/cumm [facility] Comment:Testing performed by : [facility], [address] [place]., [address] Basophil abs 0.0 0.0 - 0.1 K/cumm [facility] Comment:Testing performed by : [facility], [address] [place]., [address] Neutrophil pct 61.4 % [facility] Comment: Interpretive Data Percent cell count reference ranges are not reported, since discordance with absolute values may lead to misinterpretation of CBC data. Current Interpretive Data was last revised on 2018. Testing performed by: [facility], [address] [place]., [address] Imm gran pct 0.8 % [facility] Comment: Interpretive Data Percent cell count reference ranges are not reported, since discordance with absolute values may lead to misinterpretation of CBC data. Current Interpretive Data was last revised on 2018. Testing performed by: [facility], [address] [place] [address]., [address] Lymphocyte pct 22.9 % [facility] Comment: Interpretive Data Percent cell count reference ranges are not reported, since discordance with absolute values may lead to misinterpretation of CBC data. Current Interpretive Data was last revised on 2018. Testing performed by: [facility], [address] [place]., [address] Monocyte pct 11.2 % [facility] Comment: Interpretive Data Percent cell count reference ranges are not reported, since discordance with absolute values may lead to misinterpretation of CBC data. Current Interpretive Data was last revised on 2018. Testing performed by: [facility], [address] [place]., [address] Eosinophil pct 3.3 % [facility] Comment: Interpretive Data Percent cell count reference ranges are not reported, since discordance with absolute values may lead to misinterpretation of CBC data. Current Interpretive Data was last revised on 2018. Testing performed by: [facility], [address] [place]., [address] Basophil pct 0.4 % [facility] Comment: Interpretive Data Percent cell count reference ranges are not reported, since discordance with absolute values may lead to misinterpretation of CBC data. Current Interpretive Data was last revised on 2018. Testing performed by: [facility], [address] [place]., [address] Blood 12/17/2023 7:28 AM RETAIL LINK ANALYST 12/17/2023 10:56 AM RETAIL LINK ANALYST us Notinfile Unknown LAB BLOOD ORDERABLES Final Res ult [facility] Department [place] [address] * (ABNORMAL) CBC with auto differential (12/17/2023 7:28 AM RETAIL LINK ANALYST) WBC 5.2 3.8 - 9.9 K/cumm [facility] Comment:Testing performed by : [facility], [address] [place]., [address] Hgb 10.0(L) 13.0 - 17.5 g/dL [facility] Comment:Testing performed by : [facility], [address] [place]., [address] Hct 30.8(L) 38.9 - 50.3 % [facility] Comment:Testing performed by : [facility], [address] [place]., [address] Plt 317 150 - 400 K/cumm [facility] Comment:Testing performed by : [facility], [address] [place]., [address] MPV 11.0 9.1 - 12.3 fL [facility] Comment:Testing performed by : [facility], [address] [facility], [address] RBC 3.25(L) 4.30 - 5.80 M/cumm [facility] Comment:Testing performed by : [facility], [address] [facility], [address] MCV 94.8 81.3 - 96.4 fL [facility] Comment:Testing performed by : [facility], [address] [facility], [address] MCH 30.8 27.1 - 33.3 pg [facility] Comment:Testing performed by : [facility], [address] [facility], [address] MCHC 32.5 32.3 - 35.7 g/dL [facility] Comment:Testing performed by : [facility], [address] [facility], [address] RDW CV 15.2(H) 11.1 - 14.9 % [facility] Comment:Testing performed by : [facility], [address] [facility], [address] RDW SD 53.0(H) 35.7 - 48.1 fL [facility] Comment:Testing performed by : [facility], [address] [facility], [address] NRBC abs 0.00 0.00 - 0.01 K/cumm [facility] Comment:Testing performed by : [facility], [address] [facility], [address] Blood 12/17/2023 7:28 AM RETAIL LINK ANALYST 12/17/2023 10:56 AM RETAIL LINK ANALYST us Notinfile Unknown LAB BLOOD ORDERABLES Final Res ult [facility] Department [place] [address] documented in this encounter Visit Diagnoses Not on filedocumented in this encounter Care Teams Plant Operator Relationship Specialty Start Date End Date Rl Medina DO [address] [place] [address] PCP - General 08/09/17 05/25/24 documented as of this encounter
--- OUTSIDE RECORDS SUMMARY | 2024-11-05 19:20 | XMS_ITS | Encounter Summary ---
Author Organization [facility] Address [address] [place] [address] Phone Care Team Providers Care Supervisor Area Name Role Phone Rl Medina DO Primary Care Provider [phone] Reason for Visit * Reason Onset Date Comments DME 12/14/2023 Encounter Details Date Type Department Care Team (Late st Contact Info) Description 12/14/2023 Telephone [facility] Orthopaedic Surgery [address] [facility] 6th [place] [address] [place] [address] Marcial Vu Jr., MD [address] [facility] [id number] [place] [address] DME Social History Tobacco Use Types Packs/Day Years Used Date Smoking Tobacco: Former Cigarettes 1 09 05 969 - 1979 Passive Smoke Exposure: Never Smokeless Tobacco: Never Alcohol Use Standard Drinks/Week Comments Yes 14 (1 standard drink = 0.6 oz pu re alcohol) social [facility] Utilities Answer Date Recorded In the past 12 months has [employer], gas, oil, or water company threatened to [...] slept in a usp (including now)? 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 Vu's recommendations. Pt is currently scheduled for clinic appt on 12/31, provided her with appt details. Per Val, pt may be discharged from [facility] to SNF on 12/25, or sooner. Irenehumaira will arrange transportation for pt's upcoming appt. Requested she contact me before then if she needs to reschedule clinic appt or with any additional questions or concerns. ONAL ACCOUNTS RECRUITER * Telephone Encounter - Galina Franco RN - 12/14/2023 11:05 AM NATIONAL ACCOUNTS RECRUITER Pt's , Val, called asking how long pt will need to wear TLSO when OOB s/p surgery on 11/08. Pt's PT/OT are asking at [facility]. Informed Irenehumaira that I will confirm timeline with Dr. Vu and will contact her (and [facility]) with an update. Told Val that it most likely will not be until early next week when I speak with Dr. Vu. Val verbalized understanding. ONAL ACCOUNTS RECRUITER documented in this encounter Plan of Treatment Not on file documented as of this encounter Visit Diagnoses Not on filedocumented in this encounter Care Teams Supervisor Area Relationship Specialty Start Date End Date Rl Medina DO [address] [place] [address] PCP - General 08/09/17 05/25/24 documented as of this encounter
--- OUTSIDE RECORDS SUMMARY | 2024-11-05 19:20 | XMS_ITS | Encounter Summary ---
Author Organization [facility] Address [address] [place] [address] Phone Care Team Providers Care Material Control Analyst Name Role Phone Rl Medina DO Primary Care Provider Encounter Details Date Type Department Care Team (Late st Contact Info) Description 12/24/2023 3:30 PM TRANSMISSION ASSEMBLER Office Visit [facility] Neurosurgery [address] [place] [address] Carrie Jerez, CARLA [address] [place], [place] [id number] Subdural hematoma (HCC) (Primary Dx) Social History Tobacco Use Types Packs/Day Years Used Date Smoking Tobacco: Former Cigarettes 1 09 05 969 - 1979 Passive Smoke Exposure: Never Smokeless Tobacco: Never Alcohol Use Standard Drinks/Week Comments Yes 14 (1 standard drink = 0.6 oz pu re alcohol) social [facility] Utilities Answer Date Recorded In the past 12 months has [employer], gas, oil, or water [employer] threatened to shut off services in your [...] any clubs o r organizations such as methodist groups, unions, fraternal or athletic groups, or [...] slept in a retirement (including now)? No 11/30/2023 Personal Safety Answer Date Recorded Have you ever been in or are you currently in a harmful physical or emotional relationship or is someone making you feel afraid or unsafe? 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 Not on file Not on file Not on file documented as of this encounter Last Filed Vital Signs Vital Sign Reading Time Taken Comments Blood Pressure 113/70 12/24/2023 1:58 PM TRANSMISSION ASSEMBLER Pulse 66 12/24/2023 1:58 PM TRANSMISSION ASSEMBLER Temperature - - Respiratory Rate - - Oxygen Saturation - - Inhaled Oxygen Concentration - - Weight 90.7 kg (200 lb) 12/24/2023 1:58 PM TRANSMISSION ASSEMBLER Height 172.7 cm (5' 8 ) 12/24/2023 1:58 PM TRANSMISSION ASSEMBLER Body Mass Index 30.41 12/24/2023 1:58 PM TRANSMISSION ASSEMBLER documented in this encounter Progress Notes * Carrie Jerez, CASHIER SUPERVISOR - 12/24/2023 3:30 PM CST RETURN VISIT Subjective HISTORY OF PRESENT ILLNESS Hira Evans is a pleasant 73 y.o. male with past medical history of complicated UTIs, hypertension, prostate cancer s/p prostatectomy (~2010), GERD, obesity, melanoma (2007), chronic kidney disease who underwent a L4-5 TLIF on October 23, [address] Vu. Q, the patient was noted to be shivering with right gaze deviation which was concern for seizure activity. He then underwent a tonic-clonic seizure with loss of pulses. He underwent CPR with return of spontaneous circulation after 2 minutes and 1 dose of epinephrine. Since the patient's suffered a seizure, he underwent a head CT which demonstrated bilateral small subdural hematomas. The patient was diagnosed BL distal R and L main pulmonary artery PEs on therapeutic lovenox. The patient was treated conservatively from a neurosurgical standpoint with serial imaging and a brain MRI. He presents for routine follow-up with anupdated head CT. Today, the patient denies any headaches, vision changes, changes in his weakness, seizures, recent falls, speech difficulties or memory deficits. He remains on Lovenox and is currently on triple for acute rehab. He will be transitioning to a longterm facility soon. Unfortunately, since the yuki marroquin's thoracic epidural hematoma, he is unable to ambulate or move his lower extremities. VITAL SIGNS BP 113/70 Pulse 66 Ht 172.7 cm (5' 8 ) Wt 90.7 kg (200 lb) BMI 30.41 kg/m?? ALLERGIES He has no known allergies. MEDICATIONS Current Outpatient Medications: acetaminophen 500 mg capsule, Take 2 capsules (1,000 mg total) by mouth every 6 (six) hours as needed for pain (Patient taking differently: Take 2 capsules (1,000 mg total) by mouth every 6 (six) hours as needed for pain 2 tablets), Disp: , Rfl: acyclovir (ZOVIRAX) 400 mg tablet, Take 1 tablet (400 mg total) by mouth 2 (two) times a day, Disp:, Rfl: ascorbic acid (VITAMIN C ORAL), Take [...] (two) times a day, Disp: , Rfl: enoxaparin (LOVENOX) 80 mg/0.8 mL syringe, Inject 0.8 mL (80 mg total) under the skin every 12 (twelve) hours (Patient taking differently: Inject 0.8 mL (80 mg total) under the skin 2 (two) times a day), Disp: , Rfl: furosemide (LASIX) 40 mg tablet, Take 1 tablet (40 mg total) by mouth 2 (two) times a day (Patient taking differently: Take 1 tablet (40 mg total) by mouth 2 (two) times a day), Disp: , Rfl: gabapentin (NEURONTIN) 600 mg tablet, Take 1 tablet (600 mg total) by mouth 3 (three) times a day, Disp: , Rfl: guaiFENesin (ROBITUSSIN) syrup 100 mg/5 mL, Take 10 mL (200 mg total) by mouth 4 (four) times a dayas needed for cough, Disp: , Rfl: levETIRAcetam (KEPPRA) 1,000 mg tablet, Take 1 tablet (1,000 mg total) by mouth 2 (two) times a day(Patient taking differently: Take 1 tablet (1,000 mg total) by mouth 2 (two) times a day), Disp: , Rfl: miconazole 2 % powder, Apply topically 2 (two) times a day (Patient taking differently: Apply topically 2 (two) times a day), Disp: , Rfl: pantoprazole DR (PROTONIX) 40 mg EC tablet, Take 1 tablet (40 mg total) by mouth daily (Patient taking differently: Take 1 tablet (40 mg total) by mouth every morning), Disp: , Rfl: ramelteon (ROZEREM) 8 mg tablet, Take 1 tablet (8 mg total) by mouth nightly, Disp: , Rfl: senna-docusate (PERICOLACE) 8.6-50 mg, Take 1 tablet by mouth nightly (Patient taking differently: Take 1 tablet by mouth nightly), Disp: , Rfl: tamsulosin (FLOMAX) 0.4 mg extended release capsule, Take 2 capsules (0.8 mg total) by mouth daily with dinner (Patient taking differently: Take 2 capsules (0.8 mg total) by mouth nightly 2 tablets),Disp: , Rfl: Objective PHYSICAL EXAM The patient is awake, alert and in no apparent distress. Cranial nerves II-XII are grossly intact, no pronator drift. The patient has 5/5 strength in the right deltoids, biceps, triceps, manager manufacturing, and intrinsic hand muscles and 5/5 in the left deltoids, biceps, triceps, manager manufacturing, and intrinsic hand muscles. The patient is able to wiggle bilateral toes. He is unable to move bilateral lower extremities. He does have sensation to touch. He is unable to ambulate REVIEW OF IMAGING CT Head WO Contrast Narrative: EXAMINATION: CT head without contrast HISTORY: Follow-up [...] are identified. High riding right jugular bulb. Impression: 1. Interval resolution of bilateral subdural collections along the cerebral convexities. 2. No new acute intracranial hemorrhage, significant mass effect, or hydrocephalus. Electronically signed by: Francia Schmitz M.D. Assessment/Plan ASSESSMENT Encounter Diagnosis Name Primary? Subdural hematoma (HCC) Yes PLAN I had a discussion with Hira Evans and his spouse regarding imaging and current complaints. His subdural hematomas have resolved. I have given the patient's spouse a taper for his Keppra. Ican see him on an as-needed basis going forward. I have asked Hira Evans to contact the office with any new or worsening symptoms, questions or concerns at any time. Carrie Jerez NP Cosigned by Jeremy Mojica MD at 01/31/2024 4:31 PM CDT SMISSION ASSEMBLER documented in this encounter Plan of Treatment Not on file documented as of this encounter Visit Diagnoses Diagnosis Subdural hematoma (HCC)- Primary Subdural hemorrhage documented in this encounter Historical Medications * This list may reflect changes made after this encounter. Medication Sig Dispense Quantity Refills Last Filled Start D ate End Date irbesartan (AVAPRO) 300 mg tablet 11/21/2023 12/10/2023 added in this encounter Care Teams Material Control Analyst Relationship Specialty Start Date End Date Rl Medina DO [address] [place] [address] PCP - General 08/09/17 05/25/24 documented as of this encounter
--- OUTSIDE RECORDS SUMMARY | 2024-11-05 19:20 | XMS_ITS | Encounter Summary ---
Author Organization [facility] Address [address] [place] [address] Care Team Providers Care Plastic Roller Name Role Phone Rl Medina DO Primary Care Provider Encounter Details Date Type Department Care Team (Late st Contact Info) Description 12/13/2023 Orders Only [facility] [phone] Unknown, Notinfile Social History Tobacco Use Types Packs/Day Years Used Date Smoking Tobacco: Former Cigarettes 1 11 969 - 1979 Passive Smoke Exposure: Never Smokeless Tobacco: Never Alcohol Use Standard Drinks/Week Comments Yes 14 (1 standard drink = 0.6 oz pu re alcohol) social C Utilities Answer Date Recorded In the past 12 months has [employer], gas, oil, or water [facility] threatened to shut off services in [...] attend chur ch or amish services? Never 11/30/2023 Do you belong to [...] slept in a [facility] (including now)? 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 Not on file Not on file documented as of this encounter Plan of Treatment Not on file documented as of this encounter Procedures Procedure Name Priority Date/Time Associated Diagnosis Comments CS GLUCOSE Routine Gen Lab 12/13/2023 7:26 AM PULL WORKER EGFR Routine Gen Lab 12/13/2023 7:26 AM PULL WORKER DIFFERENTIAL AUTO Routine Gen Lab 12/13/2023 7:2 6 AM PULL WORKER COMPREHENSIVE METABOLIC PANEL WITHOUT GLUCOSE (OUTREACH) Routine Gen Lab 12/13/2023 7:26 AM PULL WORKER CBC WITH AUTO DIFFERENTIAL Routine Gen Lab 12/13/2023 7:26 AM PULL WORKER documented in this encounter Results * eGFR (12/13/2023 7:26 AM PULL WORKER) eGFR >90 >=60 mL/min/1. 73 m2 [facility] Comment: Interpretive Data Reference Interval Normal ?>/= [...] was last reviewed 2021. Testing performed by: [facility], [address] [place]., [address] Blood 12/13/2023 7:26 AM PULL WORKER 12/13/2023 12:00 PM PULL WORKER us Notinfile Unknown LAB BLOOD ORDERABLES Final Res ult [facility] [address] [facility] Department [place] [address] * (ABNORMAL) Comprehensive metabolic panel, without glucose (Outreach) (12/13/2023 7:26 AM PULL WORKER) Sodium 142 135 - 145 mmol/L [facility] Comment:Testing performed by : [facility], [address] [facility], [address] Potassium, pl 3.3 3.3 - 4.9 mmol/L [facility] Comment:Testing performed by : [facility], [address] [facility] [place], [address] Chloride 101 97 - 110 mmol/L [facility] Comment:Testing performed by : [facility], [address] [facility] [place], [address] CO2 29 22 - 32 mmol/L [facility] Comment:Testing performed by : [facility], [address] [facility] [place], [address] Anion gap 12 2 - 15 mmol/L [facility] Comment:Testing performed by : [facility], [address] [place] [address], [address] BUN 22 6 - 25 mg/dL [facility] Comment:Testing performed by : [facility], [address] [facility] [place], [address] Creatinine 0.82 0.80 - 1.30 mg/dL [facility] Comment:Testing performed by : [facility], [address] [facility] [place], [address] Calcium 9.2 8.5 - 10.3 mg/dL [facility] Comment:Testing performed by : [facility], [address] [facility] [place], [address] Protein, pl 6.5 6.5 - 8.5 g/dL [facility] Comment:Testing performed by : [facility], [address] [facility] [place], [address] Albumin 3.1(L) 3.5 - 5.0 g/dL [facility] Comment:Testing performed by : [facility], [address] [facility] [place], [address] Bilirubin, total 0.4 0.1 - 1.2 mg/dL [facility] Comment:Testing performed by : [facility], [address] [facility] [place], [address] Alk phos 109 40 - 130 Units/L [facility] Comment:Testing performed by : [facility], [address] [facility] [place], [address] AST 30 10 - 50 Units/L [facility] Comment:Testing performed by : [facility], [address] [facility], [address] ALT 33 7 - 55 Units/L [facility] Comment:Testing performed by : [facility], [address] [facility] [place], [address] Blood 12/13/2023 7:26 AM PULL WORKER 12/13/2023 11:52 AM PULL WORKER us Notinfile Unknown LAB BLOOD ORDERABLES Final Res ult [facility] [address] [facility] Department [place] [address] * CS GLUCOSE (12/13/2023 7:26 AM PULL WORKER) [facility] Glucose 96 70 - 199 mg/dL [facility] Comment: Interpretive Data Fasting glucose [...] was last revised 2022. Testing performed by: [facility], [address] [place] [address]., [address] Blood 12/13/2023 7:26 AM PULL WORKER 12/13/2023 11:52 AM PULL WORKER us Notinfile Unknown LAB BLOOD ORDERABLES Final Res ult [facility] [address] [facility] Department [place] [address] * Differential, auto (12/13/2023 7:26 AM PULL WORKER) Neutrophil abs 3.4 1.5 - 6.5 K/cumm [facility] Comment:Testing performed by : [facility], [address] [place] [address]., [address] Imm gran abs 0.0 0.0 - 0.1 K/cumm [facility] Comment:Testing performed by : [facility], [address] [place] [address]., [address] Lymphocyte abs 1.0 0.8 - 3.3 K/cumm [facility] Comment:Testing performed by : [facility], [address] [place] [address]., [address] Monocyte abs 0.6 0.2 - 0.8 K/cumm [facility] Comment:Testing performed by : [facility], [address] [place] [address]., [address] Eosinophil abs 0.2 0.0 - 0.5 K/cumm [facility] Comment:Testing performed by : [facility], [address] [place]., [address] Basophil abs 0.0 0.0 - 0.1 K/cumm [facility] Comment:Testing performed by : [facility], [address] [place]., [address] Neutrophil pct 64.9 % [facility] Comment: Interpretive Data Percent cell count reference ranges are not reported, since discordance with absolute values may lead to misinterpretation of CBC data. Current Interpretive Data was last revised on 2018. Testing performed by: [facility], [address] [place]., [address] Imm gran pct 0.8 % [facility] Comment: Interpretive Data Percent cell count reference ranges are not reported, since discordance with absolute values may lead to misinterpretation of CBC data. Current Interpretive Data was last revised on 2018. Testing performed by: [facility], [address] [place]., [address] Lymphocyte pct 19.4 % [facility] Comment: Interpretive Data Percent cell count reference ranges are not reported, since discordance with absolute values may lead to misinterpretation of CBC data. Current Interpretive Data was last revised on 2018. Testing performed by: [facility], [address] [place]., [address] Monocyte pct 11.0 % [facility] Comment: Interpretive Data Percent cell count reference ranges are not reported, since discordance with absolute values may lead to misinterpretation of CBC data. Current Interpretive Data was last revised on 2018. Testing performed by: [facility], [address] [place]., [address] Eosinophil pct 3.1 % [facility] Comment: Interpretive Data Percent cell count reference ranges are not reported, since discordance with absolute values may lead to misinterpretation of CBC data. Current Interpretive Data was last revised on 2018. Testing performed by: [facility], [address] [place]., [address] Basophil pct 0.8 % [facility] Comment: Interpretive Data Percent cell count reference ranges are not reported, since discordance with absolute values may lead to misinterpretation of CBC data. Current Interpretive Data was last revised on 2018. Testing performed by: [facility], [address] [place]., [address] Blood 12/13/2023 7:26 AM PULL WORKER 12/13/2023 11:52 AM PULL WORKER us Notinfile Unknown LAB BLOOD ORDERABLES Final Res ult [facility] [address] [facility] Department [place] [address] * (ABNORMAL) CBC with auto differential (12/13/2023 7:26 AM PULL WORKER) WBC 5.2 3.8 - 9.9 K/cumm [facility] Comment:Testing performed by : [facility], [address] [place] [address]., [address] Hgb 10.3(L) 13.0 - 17.5 g/dL [facility] Comment:Testing performed by : [facility], [address] [place] [address], [address] Hct 32.0(L) 38.9 - 50.3 % [facility] Comment:Testing performed by : [facility], [address] [place] [address]., [address] Plt 331 150 - 400 K/cumm [facility] Comment:Testing performed by : [facility], [address] [place] [address]., [address] MPV 10.8 9.1 - 12.3 fL [facility] Comment:Testing performed by : [facility], [address] [facility], [address] RBC 3.36(L) 4.30 - 5.80 M/cumm [facility] Comment:Testing performed by : [facility], [address] [place] [address], [address] MCV 95.2 81.3 - 96.4 fL [facility] Comment:Testing performed by : [facility], [address] [facility], [address] MCH 30.7 27.1 - 33.3 pg [facility] Comment:Testing performed by : [facility], [address] [facility], [address] MCHC 32.2(L) 32.3 - 35.7 g/dL [facility] Comment:Testing performed by : [facility], [address] [facility], [address] RDW CV 15.6(H) 11.1 - 14.9 % [facility] Comment:Testing performed by : [facility], [address] [facility], [address] RDW SD 54.3(H) 35.7 - 48.1 fL [facility] Comment:Testing performed by : [facility], [address] [facility], [address] NRBC abs 0.00 0.00 - 0.01 K/cumm [facility] Comment:Testing performed by : [facility], [address] [facility], [address] Blood 12/13/2023 7:26 AM PULL WORKER 12/13/2023 11:52 AM PULL WORKER us Notinfile Unknown LAB BLOOD ORDERABLES Final Res ult [facility] Department [place] [address] documented in this encounter Visit Diagnoses Not on filedocumented in this encounter Care Teams Plastic Roller Relationship Specialty Start Date End Date Rl Medina DO [address] [place] [address] PCP - General 08/09/17 05/25/24 documented as of this encounter
--- OUTSIDE RECORDS SUMMARY | 2024-11-05 19:20 | XMS_ITS | Encounter Summary ---
Author Organization [facility] Healthcare Address [address] [place] [address] Care Team Providers Care Intelligence Manager Name Role Phone Rl Medina DO Primary Care Provider [phone] Encounter Details Date Type Department Care Team (Late st Contact Info) Description 12/11/2023 Orders Only [facility] Interim [phone] Unknown, Notinfile Social History Tobacco Use Types Packs/Day Years Used Date Smoking Tobacco: Former Cigarettes 1 11 969 - 1979 Passive Smoke Exposure: Never Smokeless Tobacco: Never Alcohol Use Standard Drinks/Week Comments Yes 14 (1 standard drink = 0.6 oz pu re alcohol) social C Utilities Answer Date Recorded In the past 12 months has [employer], gas, oil, or water [employer] threatened to shut off services in your [...] attend chur ch or nondenominational services? Never 11/30/2023 Do you belong to [...] slept in a custodial (including now)? 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 Not on file documented as of this encounter Plan of Treatment Not on file documented as of this encounter Procedures Procedure Name Priority Date/Time Associated Diagnosis Comments CS GLUCOSE Routine Gen Lab 12/11/2023 5:48 AM TURN OUT WORKER EGFR Routine Gen Lab 12/11/2023 5:48 AM TURN OUT WORKER DIFFERENTIAL AUTO Routine Gen Lab 12/11/2023 5:4 8 AM TURN OUT WORKER COMPREHENSIVE METABOLIC PANEL WITHOUT GLUCOSE (OUTREACH) Routine Gen Lab 12/11/2023 5:48 AM TURN OUT WORKER CBC WITH AUTO DIFFERENTIAL Routine Gen Lab 12/11/2023 5:48 AM TURN OUT WORKER VITAMIN D 25 HYDROXY Routine Gen Lab 12/11/2023 5:48 AM TURN OUT WORKER documented in this encounter Results * eGFR (12/11/2023 5:48 AM TURN OUT WORKER) eGFR >90 >=60 mL/min/1. 73 m2 [...] was last reviewed 2021. Testing performed by: [facility], [address] [place]., [address] Blood 12/11/2023 5:48 AM TURN OUT WORKER 12/11/2023 7:53 AM TURN OUT WORKER us Notinfile Unknown LAB BLOOD ORDERABLES Final Res ult [facility] One [facility] Department [place] [address] * (ABNORMAL) Comprehensive metabolic panel, without glucose (Outreach) (12/11/2023 5:48 AM TURN OUT WORKER) Sodium 142 135 - 145 mmol/L [facility] Comment:Testing performed by : [facility], [address] [facility], [address] Potassium, pl 3.4 3.3 - 4.9 mmol/L [facility] Comment:Testing performed by : [facility], [address] [facility], [address] Chloride 105 97 - 110 mmol/L [facility] Comment:Testing performed by : [facility], [address] [facility], [address] CO2 29 22 - 32 mmol/L [facility] Comment:Testing performed by : [facility], [address] [facility], [address] Anion gap 8 2 - 15 mmol/L [facility] Comment:Testing performed by : [facility], [address] [facility], [address] BUN 22 6 - 25 mg/dL [facility] Comment:Testing performed by : [facility], [address] [facility], [address] Creatinine 0.81 0.80 - 1.30 mg/dL [facility] Comment:Testing performed by : [facility], [address] [facility], [address] Calcium 9.1 8.5 - 10.3 mg/dL [facility] Comment:Testing performed by : [facility], [address] [facility], [address] Protein, pl 6.5 6.5 - 8.5 g/dL [facility] Comment:Testing performed by : [facility], [address] [facility], [address] Albumin 3.0(L) 3.5 - 5.0 g/dL [facility] Comment:Testing performed by : [facility], [address] [facility], [address] Bilirubin, total 0.3 0.1 - 1.2 mg/dL [facility] Comment:Testing performed by : [facility], [address] [facility], [address] Alk phos 124 40 - 130 Units/L [facility] Comment:Testing performed by : [facility], [address] [facility], [address] AST 22 10 - 50 Units/L [facility] Comment:Testing performed by : [facility], [address] [facility], [address] ALT 25 7 - 55 Units/L [facility] Comment:Testing performed by : [facility], [address] [place] [address], [address] Blood 12/11/2023 5:48 AM TURN OUT WORKER 12/11/2023 7:46 AM TURN OUT WORKER us Notinfile Unknown LAB BLOOD ORDERABLES Final Res ult [facility] One [facility] Department [place] [address] * Vitamin D 25 hydroxy (12/11/2023 5:48 AM TURN OUT WORKER) Vitamin D 25-OH 50 30 - 80 ng/mL [facility] Comment:Testing performed by : [facility], [address] [place] [address]., [address] Blood 12/11/2023 5:48 AM TURN OUT WORKER 12/11/2023 7:46 AM TURN OUT WORKER us Notinfile Unknown LAB BLOOD ORDERABLES Final Res ult Performing Organization Address [facility] Co de Phone Number [facility] Department [place] [address] * CS GLUCOSE (12/11/2023 5:48 AM TURN OUT WORKER) Glucose 98 70 - 199 mg/dL [facility] Comment: Interpretive Data Fasting glucose >/= [...] was last revised 2022. Testing performed by: [facility], [address] [place] [address]., [address] Blood 12/11/2023 5:48 AM TURN OUT WORKER 12/11/2023 7:46 AM TURN OUT WORKER us Notinfile Unknown LAB BLOOD ORDERABLES Final Res ult Performing Organization Address [facility] Co de Phone Number [facility] One [facility] [place] [address] * Differential, auto (12/11/2023 5:48 AM TURN OUT WORKER) Neutrophil abs 2.7 1.5 - 6.5 K/cumm [facility] Comment:Testing performed by : [facility], [address] [place] [address] Imm gran abs 0.0 0.0 - 0.1 K/cumm [facility] Comment:Testing performed by : [facility], [address] [place]., [address] Lymphocyte abs 1.4 0.8 - 3.3 K/cumm [facility] Comment:Testing performed by : [facility], [address] [place] [address] Monocyte abs 0.5 0.2 - 0.8 K/cumm [facility] Comment:Testing performed by : [facility], [address] [place] [address] Eosinophil abs 0.2 0.0 - 0.5 K/cumm [facility] Comment:Testing performed by : [facility], [address] [place] [address] Basophil abs 0.0 0.0 - 0.1 K/cumm [facility] Comment:Testing performed by : [facility], [address] [place] [address] Neutrophil pct 56.3 % [facility] Comment: Interpretive Data Percent cell count reference ranges are not reported, since discordance with absolute values may lead to misinterpretation of CBC data. Current Interpretive Data was last revised on 2018. Testing performed by: [facility], [address] [place] [address] Imm gran pct 0.8 % [facility] Comment: Interpretive Data Percent cell count reference ranges are not reported, since discordance with absolute values may lead to misinterpretation of CBC data. Current Interpretive Data was last revised on 2018. Testing performed by: [facility], [address] [place] [address] Lymphocyte pct 29.1 % [facility] Comment: Interpretive Data Percent cell count reference ranges are not reported, since discordance with absolute values may lead to misinterpretation of CBC data. Current Interpretive Data was last revised on 2018. Testing performed by: [facility], [address] [place]., [address] Monocyte pct 10.3 % [facility] Comment: Interpretive Data Percent cell count reference ranges are not reported, since discordance with absolute values may lead to misinterpretation of CBC data. Current Interpretive Data was last revised on 2018. Testing performed by: [facility], [address] [place] [address] Eosinophil pct 3.1 % [facility] Comment: Interpretive Data Percent cell count reference ranges are not reported, since discordance with absolute values may lead to misinterpretation of CBC data. Current Interpretive Data was last revised on 2018. Testing performed by: [facility], [address] [place]., [address] Basophil pct 0.4 % [facility] Comment: Interpretive Data Percent cell count reference ranges are not reported, since discordance with absolute values may lead to misinterpretation of CBC data. Current Interpretive Data was last revised on 2018. Testing performed by: [facility], [address] [place] [address]., [address] Blood 12/11/2023 5:48 AM TURN OUT WORKER 12/11/2023 7:46 AM TURN OUT WORKER us Notinfile Unknown LAB BLOOD ORDERABLES Final Res ult [facility] One [facility] Department [place] [address] * (ABNORMAL) CBC with auto differential (12/11/2023 5:48 AM TURN OUT WORKER) WBC 4.8 3.8 - 9.9 K/cumm [facility] Comment:Testing performed by : [facility], [address] [place] [address]., [address] Hgb 9.2(L) 13.0 - 17.5 g/dL [facility] Comment:Testing performed by : [facility], [address] [facility], [address] Hct 28.6(L) 38.9 - 50.3 % [facility] Comment:Testing performed by : [facility], [address] [facility], [address] Plt 321 150 - 400 K/cumm [facility] Comment:Testing performed by : [facility], [address] [facility], [address] MPV 10.5 9.1 - 12.3 fL [facility] Comment:Testing performed by : [facility], [address] [facility], [address] RBC 3.00(L) 4.30 - 5.80 M/cumm [facility] Comment:Testing performed by : [facility], [address] [facility], [address] MCV 95.3 81.3 - 96.4 fL [facility] Comment:Testing performed by : [facility], [address] [facility], [address] MCH 30.7 27.1 - 33.3 pg [facility] Comment:Testing performed by : [facility], [address] [facility], [address] MCHC 32.2(L) 32.3 - 35.7 g/dL [facility] Comment:Testing performed by : [facility], [address] [facility], [address] RDW CV 16.0(H) 11.1 - 14.9 % [facility] Comment:Testing performed by : [facility], [address] [place] [address], [address] RDW SD 56.3(H) 35.7 - 48.1 fL [facility] Comment:Testing performed by : [facility], [address] [facility], [address] NRBC abs 0.00 0.00 - 0.01 K/cumm [facility] Comment:Testing performed by : [facility], [address] [facility], [place]., [address] Blood 12/11/2023 5:48 AM TURN OUT WORKER 12/11/2023 7:46 AM TURN OUT WORKER us Notinfile Unknown LAB BLOOD ORDERABLES Final Res ult [facility] One [facility] Department [place] [address] documented in this encounter Visit Diagnoses Not on filedocumented in this encounter Care Teams Intelligence Manager Relationship Specialty Start Date End Date Rl Medina DO [address] [place] [address] PCP - General 08/09/17 05/25/24 documented as of this encounter
--- OUTSIDE RECORDS SUMMARY | 2024-11-05 19:20 | XMS_ITS | Encounter Summary ---
Author Organization [facility] Healthcare Address [address] [place] [address] Care Team Providers Care Foreign Exchange Student Coordinator Name Role Phone Rl Medina DO Primary Care Provider Encounter Details Date Type Department Care Team (Late st Contact Info) Description 12/20/2023 Orders Only [facility] Interim [phone] Unknown, Notinfile Social History Tobacco Use Types Packs/Day Years Used Date Smoking Tobacco: Former Cigarettes 1 11 969 - 1979 Passive Smoke Exposure: Never Smokeless Tobacco: Never Alcohol Use Standard Drinks/Week Comments Yes 14 (1 standard drink = 0.6 oz pu re alcohol) social C Utilities Answer Date Recorded In the past 12 months has [facility], gas, oil, or water [employer] threatened to shut off services in your [...] slept in a prison (including now)? 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 Not on file Not on file documented as of this encounter Plan of Treatment Not on file documented as of this encounter Procedures Procedure Name Priority Date/Time Associated Diagnosis Comments CS GLUCOSE Routine Gen Lab 12/20/2023 6:07 AM EMBEDDED SOFTWARE DEVELOPER EGFR Routine Gen Lab 12/20/2023 6:07 AM EMBEDDED SOFTWARE DEVELOPER DIFFERENTIAL AUTO Routine Gen Lab 12/20/2023 6:0 7 AM EMBEDDED SOFTWARE DEVELOPER COMPREHENSIVE METABOLIC PANEL WITHOUT GLUCOSE (OUTREACH) Routine Gen Lab 12/20/2023 6:07 AM EMBEDDED SOFTWARE DEVELOPER CBC WITH AUTO DIFFERENTIAL Routine Gen Lab 12/20/2023 6:07 AM EMBEDDED SOFTWARE DEVELOPER MAGNESIUM Routine Gen Lab 12/20/2023 6:07 AM EMBEDDED SOFTWARE DEVELOPER documented in this encounter Results * eGFR (12/20/2023 6:07 AM EMBEDDED SOFTWARE DEVELOPER) eGFR >90 >=60 mL/min/1. 73 m2 [facility] Comment: Interpretive Data Reference Interval Normal ?>/= [...] was last reviewed 2021. Testing performed by: [facility], [address] [place]., [address] Blood 12/20/2023 6:07 AM EMBEDDED SOFTWARE DEVELOPER 12/20/2023 10:57 AM EMBEDDED SOFTWARE DEVELOPER us Notinfile Unknown LAB BLOOD ORDERABLES Final Res ult [facility] One [facility] [place] [address] * (ABNORMAL) Comprehensive metabolic panel, without glucose (Outreach) (12/20/2023 6:07 AM EMBEDDED SOFTWARE DEVELOPER) Sodium 141 135 - 145 mmol/L [facility] Comment:Testing performed by : [facility], [address] [facility], [address] Potassium, pl 3.4 3.3 - 4.9 mmol/L [facility] Comment:Testing performed by : [facility], [address] [facility], [address] Chloride 101 97 - 110 mmol/L [facility] Comment:Testing performed by : [facility], [address] [facility], [address] CO2 30 22 - 32 mmol/L [facility] Comment:Testing performed by : [facility], [address] [facility], [address] Anion gap 10 2 - 15 mmol/L [facility] Comment:Testing performed by : [facility], [address] [facility], [address] BUN 15 6 - 25 mg/dL [facility] Comment:Testing performed by : [facility], [address] [facility], [address] Creatinine 0.82 0.80 - 1.30 mg/dL [facility] Comment:Testing performed by : [facility] [address] Calcium 8.9 8.5 - 10.3 mg/dL [facility] Comment:Testing performed by : [facility], [address] [facility], [address] Protein, pl 6.2(L) 6.5 - 8.5 g/dL [facility] Comment:Testing performed by : [facility], [address] [facility], [address] Albumin 3.0(L) 3.5 - 5.0 g/dL [facility] Comment:Testing performed by : [facility], [address] [facility], [address] Bilirubin, total 0.3 0.1 - 1.2 mg/dL [facility] Comment:Testing performed by : [facility], [address] [facility], [address] Alk phos 86 40 - 130 Units/L [facility] Comment:Testing performed by : [facility], [address] [facility], [address] AST 23 10 - 50 Units/L [facility] Comment:Testing performed by : [facility], [address] [facility], [address] ALT 28 7 - 55 Units/L [facility] Comment:Testing performed by : [facility], [address] [place] [address], [address] Blood 12/20/2023 6:07 AM EMBEDDED SOFTWARE DEVELOPER 12/20/2023 10:47 AM EMBEDDED SOFTWARE DEVELOPER us Notinfile Unknown LAB BLOOD ORDERABLES Final Res ult [facility] One [facility] [place] [address] * Magnesium (12/20/2023 6:07 AM EMBEDDED SOFTWARE DEVELOPER) Magnesium 2.0 1.4 - 2.5 mg/dL [facility] Comment:Testing performed by : [facility], [address] [place] [address]., [address] Blood 12/20/2023 6:07 AM EMBEDDED SOFTWARE DEVELOPER 12/20/2023 10:47 AM EMBEDDED SOFTWARE DEVELOPER us Notinfile Unknown LAB BLOOD ORDERABLES Final Res ult Performing Organization Address [facility] Co de Phone Number [facility] [place] [address] * CS GLUCOSE (12/20/2023 6:07 AM EMBEDDED SOFTWARE DEVELOPER) Glucose 95 70 - 199 mg/dL [facility] Comment: Interpretive Data Fasting glucose >/= [...] was last revised 2022. Testing performed by: [facility], [address] [place] [address]., [address] Blood 12/20/2023 6:07 AM EMBEDDED SOFTWARE DEVELOPER 12/20/2023 10:47 AM EMBEDDED SOFTWARE DEVELOPER us Notinfile Unknown LAB BLOOD ORDERABLES Final Res ult Performing Organization Address City/[facility] Co de Phone Number [facility] One [facility] [place] [address] * Differential, auto (12/20/2023 6:07 AM EMBEDDED SOFTWARE DEVELOPER) Neutrophil abs 2.6 1.5 - 6.5 K/cumm [facility] Comment:Testing performed by : [facility], [address] [place]., [address] Imm gran abs 0.0 0.0 - 0.1 K/cumm [facility] Comment:Testing performed by : [facility], [address] [place]., [address] Lymphocyte abs 1.3 0.8 - 3.3 K/cumm [facility] Comment:Testing performed by : [facility], [address] [place]., [address] Monocyte abs 0.5 0.2 - 0.8 K/cumm [facility] Comment:Testing performed by : [facility], [address] [place]., [address] Eosinophil abs 0.2 0.0 - 0.5 K/cumm [facility] Comment:Testing performed by : [facility], [address] [place]., [address] Basophil abs 0.0 0.0 - 0.1 K/cumm [facility] Comment:Testing performed by : [facility], [address] [place]., [address] Neutrophil pct 55.9 % [facility] Comment: Interpretive Data Percent cell count reference ranges are not reported, since discordance with absolute values may lead to misinterpretation of CBC data. Current Interpretive Data was last revised on 2018. Testing performed by: [facility], [address] [place]., [address] Imm gran pct 0.9 % [facility] Comment: Interpretive Data Percent cell count reference ranges are not reported, since discordance with absolute values may lead to misinterpretation of CBC data. Current Interpretive Data was last revised on 2018. Testing performed by: [facility], [address] [place]., [address] Lymphocyte pct 27.9 % [facility] Comment: Interpretive Data Percent cell count reference ranges are not reported, since discordance with absolute values may lead to misinterpretation of CBC data. Current Interpretive Data was last revised on 2018. Testing performed by: [facility], [address] [place]., [address] Monocyte pct 10.2 % [facility] Comment: Interpretive Data Percent cell count reference ranges are not reported, since discordance with absolute values may lead to misinterpretation of CBC data. Current Interpretive Data was last revised on 2018. Testing performed by: [facility], [address] [place] [address] Eosinophil pct 4.7 % [facility] Comment: Interpretive Data Percent cell count reference ranges are not reported, since discordance with absolute values may lead to misinterpretation of CBC data. Current Interpretive Data was last revised on 2018. Testing performed by: [facility], [address] [place]., [address] Basophil pct 0.4 % [facility] Comment: Interpretive Data Percent cell count reference ranges are not reported, since discordance with absolute values may lead to misinterpretation of CBC data. Current Interpretive Data was last revised on 2018. Testing performed by: [facility], [address] [place] [address]., [address] Blood 12/20/2023 6:07 AM EMBEDDED SOFTWARE DEVELOPER 12/20/2023 10:47 AM EMBEDDED SOFTWARE DEVELOPER us Notinfile Unknown LAB BLOOD ORDERABLES Final Res ult [facility] One [facility] [place] [address] * (ABNORMAL) CBC with auto differential (12/20/2023 6:07 AM EMBEDDED SOFTWARE DEVELOPER) WBC 4.7 3.8 - 9.9 K/cumm [facility] Comment:Testing performed by : [facility], [address] [place] [address], [place]., [address] Hgb 9.3(L) 13.0 - 17.5 g/dL [facility] Comment:Testing performed by : [facility], [address] [facility], [address] Hct 29.6(L) 38.9 - 50.3 % [facility] Comment:Testing performed by : [facility], [address] [facility], [address] Plt 253 150 - 400 K/cumm [facility] Comment:Testing performed by : [facility], [address] [facility], [address] MPV 11.2 9.1 - 12.3 fL [facility] Comment:Testing performed by : [facility], [address] [facility], [address] RBC 3.10(L) 4.30 - 5.80 M/cumm [facility] Comment:Testing performed by : [facility], [address] [facility], [address] MCV 95.5 81.3 - 96.4 fL [facility] Comment:Testing performed by : [facility], [address] [facility], [address] MCH 30.0 27.1 - 33.3 pg [facility] Comment:Testing performed by : [facility], [address] [facility], [address] MCHC 31.4(L) 32.3 - 35.7 g/dL [facility] Comment:Testing performed by : [facility], [address] [facility], [address] RDW CV 14.7 11.1 - 14.9 % [facility] Comment:Testing performed by : [facility], [address] [place] [address], [address] RDW SD 51.8(H) 35.7 - 48.1 fL [facility] Comment:Testing performed by : [facility], [address] [facility], [address] NRBC abs 0.00 0.00 - 0.01 K/cumm [facility] Comment:Testing performed by : [facility], 1 [facility], [place]., [address] Blood 12/20/2023 6:07 AM EMBEDDED SOFTWARE DEVELOPER 12/20/2023 10:47 AM EMBEDDED SOFTWARE DEVELOPER us Notinfile Unknown LAB BLOOD ORDERABLES Final Res ult [facility] One [facility] [place] [address] documented in this encounter Visit Diagnoses Not on filedocumented in this encounter Care Teams Foreign Exchange Student Coordinator Relationship Specialty Start Date End Date Rl Medina DO [address] [place] [address] PCP - General 08/09/17 05/25/24 documented as of this encounter
--- OUTSIDE RECORDS SUMMARY | 2024-11-05 19:20 | XMS_ITS | Encounter Summary ---
Author Organization [facility] Healthcare Address [address] [place] [address] Care Team Providers Care Roofer Apprentice Name Role Phone Rl Medina DO Primary Care Provider [phone] Reason for Referral * Cardiology (Routine) - Closed Specialty Diagnoses / Procedures Referred By Manisha gale Referred To Contact Diagnoses Lower extremity edema Procedures Transthoracic Echo (TTE) Limited/Followup Tae Ramos MD Phone: tel: fax: [address] [phone] Referral ID Status Reason Start Date Expiration Date Visits Re quested Visits Authorized [id number] Closed 12/19/2023 01/17/2025 1 1 OSITY INSPECTOR Reason for Visit * Cardiology (Routine) - Closed Specialty Diagnoses / Procedures Referred By Manisha gale Referred To Contact Diagnoses Lower extremity edema Procedures Transthoracic Echo (TTE) Limited/Followup Tae Ramos MD Phone: tel: fax: [address] [phone] Referral ID Status Reason Start Date Expiration Date Visits Re quested Visits Authorized [id number] Closed 12/19/2023 01/17/2025 1 1 Encounter Details Date Type Department Care Team (Latest Contact Info) Description 12/20/2023 3:15 PM VISCOSITY INSPECTOR - 12/20/2023 11:59 PM VISCOSITY INSPECTOR Hospital Encounter [facility] Cardiac Diagnostic Lab [address] [facility] 8th [place] [address] Lower extremity edema Discharge Disposition: Discharge to home or self care Social History Tobacco Use Types Packs/Day Years Used Date Smoking Tobacco: Former Cigarettes 1 11 1 969 1979 Passive Smoke Exposure: Never Smokeless Tobacco: Never Alcohol Use Standard Drinks/Week Comments Yes 14 (1 standard drink = 0.6 oz pu re alcohol) social [facility] Utilities Answer Date Recorded In the past 12 months has th e [employer], gas, oil, or water [employer] threatened to shut off services in your [...] week 11/30/2023 How often do you attend [facility] or cheondoism services? 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 Not on file [...] Procedure Name Priority Date/Time Associated Diagnosis Comments TRANSTHORACIC ECHO (TTE) LIMITED/FOLLOW UP W LTD DOPPLER/CF W CONTRAST Routine 12/20/2023 4:16 PM VISCOSITY INSPECTOR Lower extremity edema documented in this encounter Results * TRANSTHORACIC ECHO (TTE) LIMITED/FOLLOW UP W LTD DOPPLER/CF W CONTRAST (12/20/2023 4:16 PM VISCOSITY INSPECTOR) LV EF 55 % CARDIOREPORT Anatomical Region Laterality Modality Ultrasound 12/20/2023 3:15 PM VISCOSITY INSPECTOR Narrative 12/20/2023 4:36 PM VISCOSITY INSPECTOR Patient name: Hira Evans Date of test: 12/20/2023 Type of test: [facility] #: 0 Date of : 1950 (M) Slicing Machine Operator: Mikayla Saravia RDCS Referring Physician: TAE RAMOS MD Contrast Agent: 0.30 ml Definity Administered, (1.20 ml wasted). Contrast Administered by: Shani Youngblood RN Supervised/Interpreted by: Anibal Heath MD Diagnosis: Edema Location: [facility] Reason for test: Edema MV Structure: [...] 2=Hypo 3=Akinetic 4=Dyskin./Aneurysm 0=Not visualized) Parasternal Long Waite:MAS=1 BAS=1 MIL=1 RENEE=1 Parasternal Short Waite:MAS=1 MIS=1 CT=1 MIL=1 MAL=1 MA=1 Apical 4 Chambers:=1 MIS=1 BIS=1 BAL=1 MAL=1 AL=1 AC=1 Apical 2 Chambers:AI=1 CT=1 BI=1 BA=1 MA=1 AA=1 AC=1 LV Global [...] MD By signing this report, the attending silverware buffing machine operator certifies that he or she has personally supervised and interpreted the echocardiogram and has reviewed and or edited and agrees with the written comments contained within the report. Procedure Note Hernán Heath MD - 12/20/2023 Patient name: Hira Evans Date of test: 12/20/2023 Type of test: Limited TTE [facility] #: 0 Date of : 1950 (M) Slicing Machine Operator: Mikayla Saravia RDCS Referring Physician: TAE RAMOS MD Contrast Agent: 0.30 ml Definity Administered, (1.20 ml wasted). Contrast Administered by: Shani Youngblood RN Supervised/Interpreted by: Anibal Heath MD Diagnosis: Edema Location: [facility] Reason for test: Edema MV Structure: [...] 2=Hypo 3=Akinetic 4=Dyskin./Aneurysm 0=Not visualized) Parasternal Long Waite:MAS=1 BAS=1 MIL=1 RENEE=1 Parasternal Short Waite:MAS=1 MIS=1 CT=1 MIL=1 MAL=1 MA=1 Apical 4 Chambers:=1 MIS=1 BIS=1 BAL=1 MAL=1 AL=1 AC=1 Apical 2 Chambers:AI=1 CT=1 BI=1 BA=1 MA=1 AA=1 AC=1 LV Global [...] MD By signing this report, the attending silverware buffing machine operator certifies that he or she has personally supervised and interpreted the echocardiogram and has reviewed and or edited and agrees with the written comments contained within the report. Tae Ramos MD CV ECHO PROCEDURES Final R esult documented in this encounter Visit Diagnoses Diagnosis Lower extremity edema Edema documented in this encounter Administered Medications Inactive Administered Medications - up to 3 most recent administrations Medication Order MAR Action Action Date Dose Rate Site perflutren lipid (DEFINITY) 1.5 mL in sodium chloride 0.9% 10 mL syringe 1-10 mL, intravenous, Once in imaging, contrast, Starting on Helene 12/20/23 at 1526, For 1 dose, Intra-Procedure (CV) Given by Other 12/20/2023 4:16 PM VISCOSITY INSPECTOR 2 mL documented in this encounter Orders Medications Ordered That Armando ht Not Have Been Administered Count Last Ordered Date First Ordered Date perflutren lipid (DEFINITY) 1.5 mL in sodium chloride 0.9% 10 mL syringe 1 12/20/2023 documented in this encounter Care Teams Roofer Apprentice Relationship Specialty Start Date End Date Rl Medina DO [address] [place] [address] PCP - General 08/09/17 05/25/24 documented as of this encounter
--- OUTSIDE RECORDS SUMMARY | 2024-11-05 19:21 | XMS_ITS | Encounter Summary ---
Author Organization [facility] Healthcare Address [address] [place] [address] Care Team Providers Care Clinical Care Coordinator Name Role Phone Rl Medina DO Primary Care Provider Encounter Details Date Type Department Care Team (Late st Contact Info) Description 11/29/2023 Orders Only [facility] [phone] Unknown, Notinfile Social History Tobacco Use Types Packs/Day Years Used Date Smoking Tobacco: Former Cigarettes 1 11 0 11/05/1968 - 11/05/1979 Passive Smoke Exposure: Past Smokeless Tobacco: Never Alcohol Use Standard Drinks/Week Comments Yes 14 (1 standard drink = 0.6 oz pu re alcohol) social [facility] Utilities Answer Date Recorded In the past 12 months has [employer], gas, oil, or water [employer] threatened to shut off services in your [...] attend chur ch or advent services? Never 11/30/2023 Do you belong to any clubs o r organizations such as anabaptism groups, unions, fraternal or athletic groups, or school groups? No 11/30/2023 How often do you attend meet ings of the clubs or organizations you belong to? Never 11/30/2023 Are you , , di vorced, , never , or living with a partner? 11/30/2023 AUDIT-C Answer Date Recorded Q1: How often do you have a drink containing alcohol? 4 or more times a week 10/23/2023 Q2: How many drinks containi ng alcohol do you have on a typical day when you are drinking? 1 or 2 3 Q3: How often do you have si x or more drinks on one occasion? Never 10/23/2023 Overall Financial Resource Strain (CARDIA) Answe r [...] slept in a mcc (including now)? 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 Not on file Not on file documented as of this encounter Plan of Treatment Not on file documented as of this encounter Procedures Procedure Name Priority Date/Time Associated Diagnosis Comments CS GLUCOSE Routine Gen Lab 11/29/2023 7:17 AM VISOR INSTALLER EGFR Routine Gen Lab 11/29/2023 7:17 AM VISOR INSTALLER DIFFERENTIAL AUTO Routine Gen Lab 11/29/2023 7:1 7 AM VISOR INSTALLER COMPREHENSIVE METABOLIC PANEL WITHOUT GLUCOSE (OUTREACH) Routine Gen Lab 11/29/2023 7:17 AM VISOR INSTALLER CBC WITH AUTO DIFFERENTIAL Routine Gen Lab 11/29/2023 7:17 AM VISOR INSTALLER documented in this encounter Results * eGFR (11/29/2023 7:17 AM VISOR INSTALLER) eGFR 86 >=60 mL/min/1. 73 m2 [facility] Comment: [...] last reviewed 2021. Testing performed by: [facility], [address] [place]., [address] Blood 11/29/2023 7:17 AM VISOR INSTALLER 11/29/2023 10:59 AM VISOR INSTALLER us Notinfile Unknown LAB BLOOD ORDERABLES Final Res ult [facility] Department [place] [address] * (ABNORMAL) Comprehensive metabolic panel, without glucose (Outreach) (11/29/2023 7:17 AM VISOR INSTALLER) Sodium 133(L) 135 - 145 mmol/L [facility] Comment:Testing performed by : [facility], [address] [facility] [place], [address] Potassium, pl 4.5 3.3 - 4.9 mmol/L [facility] Comment:Testing performed by : [facility], [address] [facility] [address], [address] Chloride 99 97 - 110 mmol/L [facility] Comment:Testing performed by : [facility], [address] [facility], [address] CO2 24 22 - 32 mmol/L [facility] Comment:Testing performed by : [facility], [address] [facility] [place], [address] Anion gap 10 2 - 15 mmol/L [facility] Comment:Testing performed by : [facility], [address] [facility] [place], [address] BUN 29(H) 6 - 25 mg/dL [facility] Comment:Testing performed by : [facility], [address], [address] Creatinine 0.94 0.80 - 1.30 mg/dL [facility] Comment:Testing performed by : [facility], [address] [facility] [address], [address] Calcium 8.9 8.5 - 10.3 mg/dL [facility] Comment:Testing performed by : [facility], [address] [facility] [address], [address] Protein, pl 6.0(L) 6.5 - 8.5 g/dL [facility] Comment:Testing performed by : [facility], [address] [facility], [address] Albumin 2.8(L) 3.5 - 5.0 g/dL [facility] Comment:Testing performed by : [facility], [address] [facility] [address], [address] Bilirubin, total 0.4 0.1 - 1.2 mg/dL [facility] Comment:Testing performed by : [facility] [address] [facility] [address], [address] Alk phos 139(H) 40 - 130 Units/L [facility] Comment:Testing performed by : [facility], [address], [address] AST 65(H) 10 - 50 Units/L [facility] Comment:Testing performed by : [facility], [address], [address] ALT 80(H) 7 - 55 Units/L [facility] Comment:Testing performed by : [facility], [address] [place] [address], [address] Blood 11/29/2023 7:17 AM VISOR INSTALLER 11/29/2023 10:53 AM VISOR INSTALLER us Notinfile Unknown LAB BLOOD ORDERABLES Final Res ult [facility] Department [place] [address] * CS GLUCOSE (11/29/2023 7:17 AM VISOR INSTALLER) [facility] Glucose 105 70 - 199 mg/dL [facility] Comment: Interpretive Data Fasting glucose >/= [...] last revised 2022. Testing performed by: [facility], [address] [place]., [address] Blood 11/29/2023 7:17 AM VISOR INSTALLER 11/29/2023 10:53 AM VISOR INSTALLER us Notinfile Unknown LAB BLOOD ORDERABLES Final Res ult [facility] Department [place] [address] * Differential, auto (11/29/2023 7:17 AM VISOR INSTALLER) Neutrophil abs 6.1 1.5 - 6.5 K/cumm [facility] Comment:Testing performed by : [facility], [address] [place] [address]., [address] Imm gran abs 0.1 0.0 - 0.1 K/cumm [facility] Comment:Testing performed by : [facility], [address] [place]., [address] Lymphocyte abs 0.9 0.8 - 3.3 K/cumm [facility] Comment:Testing performed by : [facility], [address] [place]., [address] Monocyte abs 0.6 0.2 - 0.8 K/cumm [facility] Comment:Testing performed by : [facility], [address] [place]., [address] Eosinophil abs 0.4 0.0 - 0.5 K/cumm [facility] Comment:Testing performed by : [facility], [address] [place]., [address] Basophil abs 0.0 0.0 - 0.1 K/cumm [facility] Comment:Testing performed by : [facility], [address] [place]., [address] Neutrophil pct 75.7 % [facility] Comment: Interpretive Data Percent cell count reference ranges are not reported, since discordance with absolute values may lead to misinterpretation of CBC data. Current Interpretive Data was last revised on 2018. Testing performed by: [facility], [address] [place]., [address] Imm gran pct 1.1 % [facility] Comment: Interpretive Data Percent cell count reference ranges are not reported, since discordance with absolute values may lead to misinterpretation of CBC data. Current Interpretive Data was last revised on 2018. Testing performed by: [facility], [address] [place]., [address] Lymphocyte pct 11.5 % [facility] Comment: Interpretive Data Percent cell count reference ranges are not reported, since discordance with absolute values may lead to misinterpretation of CBC data. Current Interpretive Data was last revised on 2018. Testing performed by: [facility], [address] [place] [address]., [address] Monocyte pct 7.2 % [facility] Comment: Interpretive Data Percent cell count reference ranges are not reported, since discordance with absolute values may lead to misinterpretation of CBC data. Current Interpretive Data was last revised on 2018. Testing performed by: [facility], [address] [place]., [address] Eosinophil pct 4.3 % [facility] Comment: Interpretive Data Percent cell count reference ranges are not reported, since discordance with absolute values may lead to misinterpretation of CBC data. Current Interpretive Data was last revised on 2018. Testing performed by: [facility], [address] [place]., [address] Basophil pct 0.2 % [facility] Comment: Interpretive Data Percent cell count reference ranges are not reported, since discordance with absolute values may lead to misinterpretation of CBC data. Current Interpretive Data was last revised on 2018. Testing performed by: [facility], [address] [place]., [address] Blood 11/29/2023 7:17 AM VISOR INSTALLER 11/29/2023 10:53 AM VISOR INSTALLER us Notinfile Unknown LAB BLOOD ORDERABLES Final Res ult [facility] Department [place] [address] * (ABNORMAL) CBC with auto differential (11/29/2023 7:17 AM VISOR INSTALLER) WBC 8.1 3.8 - 9.9 K/cumm [facility] Comment:Testing performed by : [facility], [address] [place] [address]., [address] Hgb 7.7(L) 13.0 - 17.5 g/dL [facility] Comment:Testing performed by : [facility], [address] [place] [address]., [address] Hct 23.9(L) 38.9 - 50.3 % [facility] Comment:Testing performed by : [facility], [address] [place] [address]., [address] Plt 150 150 - 400 K/cumm [facility] Comment:Testing performed by : [address] [address] MPV 10.7 9.1 - 12.3 fL [facility] Comment:Testing performed by : [facility], [address] [place] [address], [address] RBC 2.51(L) 4.30 - 5.80 M/cumm [facility] Comment:Testing performed by : [facility], [address] [place]., [address] MCV 95.2 81.3 - 96.4 fL [facility] Comment:Testing performed by : [facility], [address] [facility], [address] MCH 30.7 27.1 - 33.3 pg [facility] Comment:Testing performed by : [facility], [address] [facility] [address], [address] MCHC 32.2(L) 32.3 - 35.7 g/dL [facility] Comment:Testing performed by : [facility], [address], [address] RDW CV 15.2(H) 11.1 - 14.9 % [facility] Comment:Testing performed by : [facility], [address] [facility], [address] RDW SD 52.6(H) 35.7 - 48.1 fL [facility] Comment:Testing performed by : [facility], [address] [facility], [address] NRBC abs 0.00 0.00 - 0.01 K/cumm [facility] Comment:Testing performed by : [facility], [address] [place] [address], [address] Blood 11/29/2023 7:17 AM VISOR INSTALLER 11/29/2023 10:53 AM VISOR INSTALLER us Notinfile Unknown LAB BLOOD ORDERABLES Final Res ult [facility] Department [place] [address] documented in this encounter Visit Diagnoses Not on filedocumented in this encounter Care Teams Clinical Care Coordinator Relationship Specialty Start Date End Date Rl Medina DO [address] [place] [address] PCP - General 08/09/17 05/25/24 documented as of this encounter
--- OUTSIDE RECORDS SUMMARY | 2024-11-05 19:21 | XMS_ITS | Encounter Summary ---
Author Organization [facility] Address [address] [place] [address] Phone Care Team Providers Care Drupal Architect Name Role Phone Rl Medina DO Primary Care Provider Encounter Details Date Type Department Care Team (Late st Contact Info) Description 11/26/2023 Orders Only [facility] Orthopaedic Surgery [address] [facility] 2nd Floor [address] [place] [id number] Alonso Schilling DO [address] [place] [address] Social History Tobacco Use Types Packs/Day Years Used Date Smoking Tobacco: Former Cigarettes 1 11 0 11/05/1968 - 11/05/1979 Passive Smoke Exposure: Past Smokeless Tobacco: Never Alcohol Use Standard Drinks/Week Comments Yes 14 (1 standard drink = 0.6 oz pu re alcohol) social [facility] Utilities Answer Date Recorded In the past 12 months has [employer], gas, oil, or water company threatened to shut off services in your home? No 11/10/2023 Social Connection and Isolat ion Panel [NHANES] Answer Date Recorded In a typical week, how many times do you talk on the phone with family, friends, or neighbors? More than three times a week 11/10/2023 How often do you get togethe r with friends or relatives? More than three times a week 11/10/2023 How often do you attend [facility] or buddhism services? Never 11/10/2023 Do you belong to any clubs o r organizations such as spiritism groups, unions, fraternal or athletic groups, or school groups? No 11/10/2023 How often do you attend meet ings of the clubs or organizations you belong to? Never 11/10/2023 Are you , , di vorced, , never , or living with a partner? 11/10/2023 AUDIT-C Answer Date Recorded Q1: How often [...] care, and heating? Not hard at all 11/10/2023 PHQ-2 Answer Date Recorded PHQ-2 Total Score 0 11/10/2023 Hunger Vital Sign Answer Date Recorded Within the past 12 months, y ou worried that your food would run out before you got the money to buy more. Never true 11/10/19 24 Within the past 12 months, t he food you bought just didn't last and you didn't have money to get more. Never true 11/10/2023 PRAPARE - Transportation Answer Date Re corded In the past 12 months, has l ack of transportation kept you from medical appointments or from getting medications? No 04/2024 In the past 12 months, has l ack of transportation kept you from meetings, work, or from getting things needed for daily living? No 11/10/2023 Housing Stability Vital Sign Answer Shalom e Recorded In the last 12 months, was t here a time when you were not able to pay the mortgage or rent on time? No 11/10/2023 In the last 12 months, how many places have you lived? 1 11/10/2023 In the last 12 months, was t here a time when you did not have a steady place to sleep or slept in a jail (including now)? 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 Not on file Not on file documented as of this encounter Plan of Treatment Not on file documented as of this encounter Procedures Procedure Name Priority Date/Time Associated Diagnosis Comments CS GLUCOSE Routine Gen Lab 11/26/2023 1:55 PM METHODS SPECIALIST ENGINEER EGFR Routine Gen Lab 11/26/2023 1:55 PM METHODS SPECIALIST ENGINEER DIFFERENTIAL AUTO Routine Gen Lab 11/26/2023 1:5 5 PM METHODS SPECIALIST ENGINEER COMPREHENSIVE METABOLIC PANEL WITHOUT GLUCOSE (OUTREACH) Routine Gen Lab 11/26/2023 1:55 PM METHODS SPECIALIST ENGINEER CBC WITH AUTO DIFFERENTIAL Routine Gen Lab 11/26/2023 1:55 PM METHODS SPECIALIST ENGINEER documented in this encounter Results * eGFR (11/26/2023 1:55 PM METHODS SPECIALIST ENGINEER) eGFR 62 >=60 mL/min/1. 73 m2 LAURA ZARAGOZA Comment: [...] last reviewed 2021. Testing performed by: [facility], [address] [place]., [address] Blood 11/26/2023 1:55 PM METHODS SPECIALIST ENGINEER 11/26/2023 6:29 PM METHODS SPECIALIST ENGINEER us Notinfile Unknown LAB BLOOD ORDERABLES Final Res ult [facility] Department [place] [address] * (ABNORMAL) Comprehensive metabolic panel, without glucose (Outreach) (11/26/2023 1:55 PM METHODS SPECIALIST ENGINEER) Sodium 129(L) 135 - 145 mmol/L [facility] Comment:Testing performed by : [facility], [address] [place]., [address] Potassium, pl 4.8 3.3 - 4.9 mmol/L [facility] Comment:Testing performed by : [facility], [address] [place]., [address] Chloride 94(L) 97 - 110 mmol/L [facility] Comment:Testing performed by : [facility], [address] [place]., [address] CO2 23 22 - 32 mmol/L [facility] Comment:Testing performed by : [facility], [address] [facility], [address] Anion gap 12 2 - 15 mmol/L [facility] Comment:Testing performed by : [facility], [address] [place]., [address] BUN 46(H) 6 - 25 mg/dL [facility] Comment:Testing performed by : [facility], [address] [facility], [address] Creatinine 1.24 0.80 - 1.30 mg/dL [facility] Comment:Testing performed by : [facility], [address] [facility], [address] Calcium 9.3 8.5 - 10.3 mg/dL [facility] Comment:Testing performed by : [facility], [address] [facility], [address] Protein, pl 6.2(L) 6.5 - 8.5 g/dL [facility] Comment:Testing performed by : [facility], [address] [facility], [address] Albumin 3.1(L) 3.5 - 5.0 g/dL [facility] Comment:Testing performed by : [facility], [address] [facility], [address] Bilirubin, total 0.3 0.1 - 1.2 mg/dL [facility] Comment:Testing performed by : [facility], [address] [facility], [address] Alk phos 139(H) 40 - 130 Units/L [facility] Comment:Testing performed by : [facility], [address] [facility], [address] AST 35 10 - 50 Units/L [facility] Comment:Testing performed by : [facility], [address] [place] [address], [address] ALT 50 7 - 55 Units/L [facility] Comment:Testing performed by : [facility], [address] [place] [address], [address] Blood 11/26/2023 1:55 PM METHODS SPECIALIST ENGINEER 11/26/2023 6:25 PM METHODS SPECIALIST ENGINEER us Notinfile Unknown LAB BLOOD ORDERABLES Final Res ult [facility] Department [place] [address] * (ABNORMAL) Differential, auto (11/26/2023 1:55 PM METHODS SPECIALIST ENGINEER) Neutrophil abs 8.0(H) 1.5 - 6.5 K/cumm [facility] Comment:Testing performed by : [facility], [address] [place] [address]., [address] Imm gran abs 0.1 0.0 - 0.1 K/cumm [facility] Comment:Testing performed by : [facility], [address] [place] [address]., [address] Lymphocyte abs 0.7(L) 0.8 - 3.3 K/cumm [facility] Comment:Testing performed by : [facility], [address] [place] [address]., [address] Monocyte abs 0.7 0.2 - 0.8 K/cumm [facility] Comment:Testing performed by : [facility], [address] [place] [address]., [address] Eosinophil abs 0.3 0.0 - 0.5 K/cumm [facility] Comment:Testing performed by : [facility], [address] [place] [address]., [address] Basophil abs 0.0 0.0 - 0.1 K/cumm [facility] Comment:Testing performed by : [address] [address] Neutrophil pct 81.4 % [facility] Comment: Interpretive Data Percent cell count reference ranges are not reported, since discordance with absolute values may lead to misinterpretation of CBC data. Current Interpretive Data was last revised on 2018. Testing performed by: [facility], [address] [place] [address]., [address] Imm gran pct 0.9 % [facility] Comment: Interpretive Data Percent cell count reference ranges are not reported, since discordance with absolute values may lead to misinterpretation of CBC data. Current Interpretive Data was last revised on 2018. Testing performed by: [facility], [address] [place]., [address] Lymphocyte pct 7.5 % [facility] Comment: Interpretive Data Percent cell count reference ranges are not reported, since discordance with absolute values may lead to misinterpretation of CBC data. Current Interpretive Data was last revised on 2018. Testing performed by: [facility], [address] [place]., [address] Monocyte pct 7.4 % [facility] Comment: Interpretive Data Percent cell count reference ranges are not reported, since discordance with absolute values may lead to misinterpretation of CBC data. Current Interpretive Data was last revised on 2018. Testing performed by: [facility], [address] [place]., [address] Eosinophil pct 2.6 % [facility] Comment: Interpretive Data Percent cell count reference ranges are not reported, since discordance with absolute values may lead to misinterpretation of CBC data. Current Interpretive Data was last revised on 2018. Testing performed by: [facility], [address] [place] [address] Basophil pct 0.2 % [facility] Comment: Interpretive Data Percent cell count reference ranges are not reported, since discordance with absolute values may lead to misinterpretation of CBC data. Current Interpretive Data was last revised on 2018. Testing performed by: [facility], [address] [place]., [address] Blood 11/26/2023 1:55 PM METHODS SPECIALIST ENGINEER 11/26/2023 6:25 PM METHODS SPECIALIST ENGINEER us Notinfile Unknown LAB BLOOD ORDERABLES Final Res ult [facility]AG[facility] Department [place] [address] * (ABNORMAL) CBC with auto differential (11/26/2023 1:55 PM METHODS SPECIALIST ENGINEER) [facility] WBC 9.8 3.8 - 9.9 K/cumm [facility] Comment:Testing performed by : [facility], [address] [facility], [address] Hgb 8.0(L) 13.0 - 17.5 g/dL [facility] Comment:Testing performed by : [facility], [address] [facility], [address] Hct 24.4(L) 38.9 - 50.3 % [facility] Comment:Testing performed by : [facility], [address] [facility], [address] Plt 135(L) 150 - 400 K/cumm [facility] Comment:Testing performed by : [facility], [address] [facility], [address] MPV 11.9 9.1 - 12.3 fL [facility] Comment:Testing performed by : [facility], [address] [facility], [address] RBC 2.53(L) 4.30 - 5.80 M/cumm [facility] Comment:Testing performed by : [facility], [address] [facility], [address] MCV 96.4 81.3 - 96.4 fL [facility] Comment:Testing performed by : [facility], [address] [facility], [address] MCH 31.6 27.1 - 33.3 pg [facility] Comment:Testing performed by : [facility], [address] [place] [address], [address] MCHC 32.8 32.3 - 35.7 g/dL [facility] Comment:Testing performed by : [facility], [address] [place] [address], [address] RDW CV 15.4(H) 11.1 - 14.9 % [facility] Comment:Testing performed by : [facility], [address] [place] [address] RDW SD 54.5(H) 35.7 - 48.1 fL [facility] Comment:Testing performed by : [facility], [address] [place]., [address] NRBC abs 0.00 0.00 - 0.01 K/cumm [facility] Comment:Testing performed by : [facility], [address] [facility], [address] Blood 11/26/2023 1:55 PM METHODS SPECIALIST ENGINEER 11/26/2023 6:25 PM METHODS SPECIALIST ENGINEER us Notinfile Unknown LAB BLOOD ORDERABLES Final Res ult Performing Organization Address City/[facility]/ZIP Co de Phone Number [facility] Department [place] [address] * CS GLUCOSE (11/26/2023 1:55 PM METHODS SPECIALIST ENGINEER) [facility] Glucose 130 70 - 199 mg/dL [facility]A [facility] Comment: Interpretive Data Fasting glucose [...] last revised 2022. Testing performed by: [facility], [address] [place] [address]., [address] Blood 11/26/2023 1:55 PM METHODS SPECIALIST ENGINEER 11/26/2023 6:25 PM METHODS SPECIALIST ENGINEER us Notinfile Unknown LAB BLOOD ORDERABLES Final Res ult Performing Organization Address City/[facility]/ZIP Co de Phone Number [facility] [place] [address] documented in this encounter Visit Diagnoses Not on filedocumented in this encounter Care Teams Drupal Architect Relationship Specialty Start Date End Date Rl Medina DO [address] [place] [address] PCP - General 08/09/17 05/25/24 documented as of this encounter
--- OUTSIDE RECORDS SUMMARY | 2024-11-05 19:21 | XMS_ITS | Encounter Summary ---
Author Organization [facility] Address [address] [place] [address] Phone Care Team Providers Care Senior Professional Services Consultant Name Role Phone Rl Medina DO Primary Care Provider [phone] Encounter Details Date Type Department Care Team (Late st Contact Info) Description 11/23/2023 Documentation [facility] On[facility] Advanced Medicine 7th [place] [address] [place] [id number] Oz Elena MD [address] DIV MEDICAL ONCOLOGY, [address] [place] [address] Social History Tobacco Use Types Packs/Day Years Used Date Smoking Tobacco: Former Cigarettes 1 11 0 11/05/1968 - 11/05/1979 Passive Smoke Exposure: Past Smokeless Tobacco: Never Alcohol Use Standard Drinks/Week Comments Yes 14 (1 standard drink = 0.6 oz pu re alcohol) social [facility] Utilities Answer Date Recorded In the past 12 months has [employer], gas, oil, or water company threatened to [...] week 11/10/2023 How often do you attend chur ch or methodist services? Never 11/10/2023 Do you belong to any clubs o r organizations such as orthodoxy groups, unions, fraternal or athletic groups, or [...] in a long term (including now)? 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 Mr Evans is a 73 y.o. male with distant hx of prostate CA (prostatectomy 2008), melanoma (s/p resection 2005), HTN, GERD, CKD, with recent admission for complicated UTI, s/p PCN tube placement (10/13/23) exchanged for stent (10/18/23), after which he underwent posterior spinal fusion L4-L5 for his herniated disc on 10/23/2023. Postoperatively he suffered from cardiac arrest 10/23/2023 with ?seizure activity and found to have bilateral PE involving left main pulmonary artery as well as small bilateral subacute subdural hematomas. He was discharged on Lovenox before representing on 11/07/2023 with suddenloss of bilateral lower extremity sensations and paraplegia found to have cauda equina caused by epidural and subdural hematoma extending from T5-6 through L5-S1. He is since s/p T5-L5 laminectomies w/hematoma evacuation and lumbar dural repair on 11/08/23 and IVC filter placement 11/09/23. He was discharged to [facility] 11/16/23. Since then he had new LE edema and was found to have LE DVT per report fromOrtho spine surgery team. They reached out to us asking if he needed anticoagulation or hospitalization. We have not seen the patient or doppler results / labs since these are not available to review. Based on report, no limb ischemia from the DVTs. We discussed that given he has IVC filter there is low risk of PE and we would be okay holding anticoagulation due to his recent spinal surgery and ca tastrophic bleeding complications. He would need hospitalization for LE DVTs alone. We discussed that they should re-evaluate as an outpatient to see when he could go back on anticoagulation from a surgical standpoint. Also discussed with them the importance of taking out the IVC filter when it is no longer needed. TRIPPER documented in this encounter Plan of Treatment Not on file documented as of this encounter Visit Diagnoses Not on filedocumented in this encounter Care Teams Senior Professional Services Consultant Relationship Specialty Start Date End Date Rl Medina DO [address] [place] [address] PCP - General 08/09/17 05/25/24 documented as of this encounter
--- OUTSIDE RECORDS SUMMARY | 2024-11-05 19:21 | XMS_ITS | Encounter Summary ---
Author Organization [facility] Healthcare Address [address] [place] [address] Care Team Providers Care Tax Credit Leasing Consultant Name Role Phone Rl Medina DO Primary Care Provider Reason for Visit * Auth/Cert Specialty Diagnoses / Procedures Referred By Contac t Referred To Contact Diagnoses DVT Procedures na Referral ID Status Reason Start Date Expiration Date Visits Re quested Visits Authorized [id number] 1 1 Encounter Details Date Type Department Care Team (Latest Contact Info) Description 11/29/2023 4:36 PM BOIL OFF WORKER - 12/10/2023 5:00 PM BOIL OFF WORKER Hospital Encounter [facility] [address] [place] [id number] Jolynn Cabrera MD [address] [place] [address] Errol Escobar MD [address] [place] [address] Kelli Valenzuela MD [address] [place] [address] Vibha Ramirez MD [address] [place] [address] Nicolas Dobbs MD [address] [place] [address] Jimenez Henao MD [address] [place] [address] Lower extremity edema (Primary Dx) Discharge Disposition: Discharge to an IP Rehab facility Social History Tobacco Use Types Packs/Day Years Used Date Smoking Tobacco: Former Cigarettes 1 11 0 11/05/1968 - 11/05/1979 Passive Smoke Exposure: Past Smokeless Tobacco: Never Alcohol Use Standard Drinks/Week Comments Yes 14 (1 standard drink = 0.6 oz pu re alcohol) social C Utilities Answer Date Recorded In the past 12 months has e [employer], gas, oil, or water [employer] threatened to shut off services in your [...] often do you attend chur ch or oriental orthodox services? Never 11/30/2023 Do you belong to any clubs o r organizations such as worship groups, unions, fraternal or athletic groups, or [...] slept in a residential (including now)? 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 Not on file Not on file Not on file documented as of this encounter Last Filed Vital Signs Vital Sign Reading Time Taken Comments Blood Pressure 109/73 12/10/2023 3:00 PM BOIL OFF WORKER Pulse 64 12/10/2023 3:00 PM BOIL OFF WORKER Temperature 36.8 ??C (98.2 ??F) 12/10/2023 3:00 PM CS T Respiratory Rate 16 12/10/2023 3:00 PM BOIL OFF WORKER Oxygen Saturation 96% 12/10/2023 3:00 PM BOIL OFF WORKER Inhaled Oxygen Concentration - - Weight 95.4 kg (210 lb 5.1 oz) 12/10/2023 6:10 A M BOIL OFF WORKER Height 172.7 cm (5' 8 ) 11/29/2023 4:55 PM BOIL OFF WORKER Body Mass Index 31.98 11/29/2023 4:55 PM BOIL OFF WORKER documented in this encounter Discharge Summaries * Jimenez Henao MD - 12/10/2023 3:03 PM CST Inpatient Discharge Summary BRIEF OVERVIEW Admitting Provider: Jolynn Cabrera MD Discharge Provider: Jimenez Henao MD Primary Care Physician at Discharge: Rl Medina DO [phone] Admission Date: 11/29/2023 Discharge Date: 12/10/2023 Admission Location: [facility] Problems/Diagnoses: Principal Problem: DVT (deep venous thrombosis) (CMS/HCC) (HCC) Active Problems: HTN (hypertension) Prostate cancer (HCC) Hydronephrosis with urinary obstruction due to renal calculus UTI (urinary tract infection) Pulmonary embolism (HCC) Paralysis of both lower limbs (CMS/HCC) (HCC) Anemia Paraspinal hematoma Hyponatremia Elevated transaminase level Lower extremity edema Scrotal swelling Seizure (HCC) Prediabetes Resolved Problems: No resolved hospital problems. DETAILS OF HOSPITAL STAY Presenting Problem/History of Present Illness: From [facility] by Errol Escobar MD Hira Evans is a 73yoM with PMH Lumbar Disc Herniation s/p decompression surgery 10/2023 c/b cardiac arrest post-op and hematoma s/p evacuation (11/07/23) with resulting LE paralysis, DVT/PE s/p IVCfilter (not on A/C currently), HTN, prediabetes presenting with DVT. Patient has a recent complex history with admission in 10/2023 for complex UTI requiring L percutaneous nephrostomy with subsequent lithotripsy and ureteral stent placement with nephrostomy removal -patient developed perinephric hematoma post-intervention. He additionally had known lumbar radiculopathy due to L4/5 disc herniation and went to the OR on 10/23 for planned L4-5 spinal decompression and fusion. In the PACU he developed cardiac arrest with ROSC and subsequent finding of small, bilateral SDH and acute PE over the distal R and L main pulm arteries with extension in all lobar arteries. He was stabilized in the ICU and transitioned to lovenox on discharge on 10/30/23. After discharge he developed progressive LE weakness found to have a hematoma extending from T5-L5 requiring emergent evacuation and lumbar repair on 11/07. LE Duplex was negative for DVT on 11/08. His anticoagulation was held and he had an IVC filter placed on 11/09. Hematology followed during hisstay and recommended holding anticoagulation until POD 21 (11/29). He was subsequently discharged to [facility] on 11/16. He required ED visit on 11/19 for traumatic harris placement requiring urology harris placement over a wire. He had a CT during the encounter revealing interval decreased size of left perinephric hematoma with new left hydronephrosis with stones in the left proximal ureter with L double J stent in place (unclear of efficacy based on imaging); he was subsequently discharged back to [facility]. Of note hehad a urine culture on 11/21 that was positive for Enterobacter cloacae (S - bactrim, macrobid, cefepime) - obtained due to worsening leukocytosis. He has been on macrobid since with interval resolution of leukocytosis and no urinary complaints at this time. He reports progressive LE edema over the past 10days with escalation now up to his abdomen - over the past two days he has had marked edema of his scrotum without pain/erythema or tenderness. He denies numbness over feet or color changes/coolness. He reports normal UOP in his harris. He denies fever, chills, nausea/vomiting, chest pain, dyspnea, cough, abdominal pain, constipation, hematochezia/melena, hematuria. He does have mild loose stools in setting of ongoing stool regimen at [facility]. He reports minimal improvement in his LE weakness. Given his edema he underwent a LE Duplex on 11/23 at [facility] that revealed DVTs over the bilateral SFjunctions, bilateral common femoral, bilateral proximal and mid femoral, right popliteal, and rightposterior tibial veins (imaging note available for review in system). Given ongoing progression of edema he was directly admitted for hematology and vascular surgery evaluation. He arrived to the floor HD stable. Hospital Course: DVT (deep venous thrombosis), hx of PE Patient with complex history with cardiac arrest [...] here for vascular surgery and hematology evaluation. Patientarrived here HD stable with warm extremities and brisk distal pulses. BLE venous duplex US showed extensive bilateral DVTs from the groin on down. Vascular Surgery, Hematology, and Orthopedic Surgerywere consulted. After discussion w/ consulting services, patient, and his family, he was started onheparin infusion w/o bolus. Continued neurovascular checks. On 12/02, he was transfused 1 unit PRBCsfor slowly declining Hgb with appropriate rise. Since that time, hgb had remained stable on therapeutic heparin gtt for >48 hr. Discussed with hematology that patient should return to lovenox 80 mg BID for anticoagulation due to bleed risk and ability to more safely reverse anticoagulation without period of hypercoagulability. Patient monitored with anti-factor Xa level 0.68 which was appropriate. Hgb was stable between 8-9 during remainder of admission. Anticoagulation plan at discharge: enoxaparin 80 mg BID Paraspinal hematoma; paralysis of bilateral lower limbs Occurred on therapeutic anticoagulation in setting of recent lumbar decompression, with subsequent LE paralysis and emergent hematoma evacuation on 11/07. Orthopedics was consulted this admission and agreed with anticoagulation with high-risk heparin gtt without bolus and close monitoring of hemoglobin. His previous sutures were removed on 11/30. Drainage was noted from some of his sutures, so he was put on a 10 day course of TMP-SMX to treat SSTI around the proximal drain site as well as his previous E cloacae UTI. Anticoagulation was managed as described above. Noted to have dropping Hgb in the absence of any new neuro symptoms including worsening weakness/paresthesias or constipation, evaluated as above. After stable hgb on therapeutic heparin drip, discussion with orthopedic surgery and they were in agreement with enoxaparin BID for therapeutic AC as above. PT and OT evaluated him and recommended inpatient rehab. [facility] requested PM&R consult prior to discharge. PM&R recommended that patient is discharged to a SCI unit and agreed with [facility] to take. Strongly recommended attempts to manage worsening BLE/Scrotal edema. Patient started on IV diuretic therapy with brisk UOP and slow improvement of BLE edema. He was ultimately discharged to [facility]. Anemia Initial Hgb was stable in the 8-9 range. After heparin infusion was started, labs showed slowly declining hgb without obvious source. 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 He was transfused 1 unit PRBCs on 12/02. Since that time, hgb had remained stable on therapeutic heparin gtt for >48 hr and was transitioned to lovenox BID without anemia as above. UTI (urinary tract infection) Patient had diagnosed with UTI in setting of harris catheter on 11/21 with growth of Enterobacter cloacae (S - TMPSMX, nitrofurantoin, cefepime). He denied urinary symptoms, though was noted to have leukocytosis that has improved. Urology was consulted and recommended outpatient follow-up; they did not feel urgent stent exchange was indicated given normal renal function, absence of flank pain, and other acute medical issues. Once again discussed with urology after treatment course of antibiotics completed, and once again recommended to continue existing harris catheter until 12/25 ureteroscopy procedure instead of exchange prior to discharge. Hydronephrosis with urinary obstruction due to renal calculus Patient with noted progressed hydronephrosis during CT this month in setting of ureteral stones. Nourinary retention or abd/back pain noted. Urology was consulted and recommended continued conservative management with repeat urine cx to confirm resolution of previous UTI and outpatient followup asscheduled. Repeat UA was contaminated with squames but culture had clinically insignificant growth.His nitrofurantoin was switched to TMP-SMX to also cover SSTI of his back which was continued for 10 days. Scrotal swelling Lower extremity edema In setting of DVT. There was no evidence of infection on exam. Vascular surgery evaluation without plan for thrombectomy due to extensive clot burden and extension into abdomen. Used scrotal sling for support and maintained Harris catheter given anasarca and intake/output monitoring. Discussion withvascular surgery again later in hospital stay and re-iterated that thrombectomy would not be indicated in the absence of limb-threatening complications. Further discussion also with vascular surgery regarding BLE compression stockings and/or lymphedema wrapping and vascular surgery stated that thiswas appropriate. In addition, patient was started on diuretic therapy given stable vital signs with lasix 40 mg IV BID which patient tolerated well with stable Cr and K, Mg not requiring repletion. At discharge, patient was de-escalated to lasix 40 mg PO BID for diuresis as he was tolerating well. Seizure Continued levetiracetam while inpatient; he should continue this through his follow-up appointment with Neurosurgery. He did not demonstrate any seizure-like activity this admission. HTN (hypertension) Cont diltiazem; continued to hold home ARB which had been held at [facility]. Given initiation of diuretic therapy, this continued to be held at discharge. Elevated transaminase level AST 65, ALT 80, new on admission. Unclear etiology. Resolved w/o intervention. Active Issues Requiring Follow-up: Complex UTI with L ureteral stent in place - patient will require to follow-up with urology at [facility] for ureteroscopy on 12/25/2023. At that time, harris catheter will be evaluated for exchange vs void trial will occur. DVT c/b LE edema - patient will require to follow-up with hematology on 12/14/2023 to establish care.He will continue to take enoxaparin 80 mg BID SQ for anticoagulation at this time. For his lower extremity and scrotal edema, patient should get lower extremity wraps and continue on lasix 40 mg BID.Will need intermittent (~q72hr) BMP, Mg to monitor electrolytes and assess for repletion. Test Results Pending at Discharge: N/A Operative Procedures Performed: N/A Other Procedures: N/A Pertinent Test Results: Urine Culture 11/30/23 - clinically insignificant growth Hgb at discharge 9.0 mg/dl Cr at discharge 0.77 mg/dl K 3.7, Mg 1.7 Anti-factor Xa 0.68 international units/ml Discharge Details Physical Exam at Discharge: Discharge Condition: good Pulse: 69 Resp: 16 BP: 115/72 Temp: 36.8 ??C (98.2 ??F) Weight: 95.4 kg (210 lb 5.1 oz) Pertinent Exam Findings at Discharge: Constitutional: General: He is not in acute distress. HENT: Head: Normocephalic and atraumatic. Eyes: General: No scleral icterus. Cardiovascular: Rate and Rhythm: Normal rate and regular rhythm. Pulmonary: Effort: Pulmonary effort is normal. Breath sounds: Normal breath sounds. Abdominal: Tenderness: There is no abdominal tenderness. Musculoskeletal: Comments: Dependent pitting edema to level of bilateral hips Neurological: Mental Status: He is alert/oriented X4. Comments: moves BUE spontaneously. Has movement in toes and ankle on RLE, just toes LLE. Discharge Disposition: Code Status at Discharge: Full Code Discharge Instructions: Please follow up with your scheduled appointments: -12/14/23 there is an appointment with the hematologists (Dr. Hampton) to discuss anticoagulation recommendations -12/25/23: there is an appointment and procedure scheduled with the urologists to evaluate your stent. You DO NOT need to follow-up with Dr. Irene on 12/13/23, this will be rescheduled. The spine team will arrange for a follow-up appointment that you will be able to go to when you areat [facility] (currently, all [facility] appointments are not able to be arranged) Discharge Medications: Current Medications TAKE these medications acetaminophen 500 mg capsule Take 2 capsules (1,000 mg total) by mouth every 6 (six) hours as needed for pain acyclovir 400 mg tablet Take 1 tablet (400 mg total) by mouth 2 (two) times a day For: Chronic Suppression Commonly known as: ZOVIRAX bisacodyL 10 mg suppository Insert 1 suppository (10 mg total) into the rectum daily as needed for constipation For: constipation Commonly known as: DULCOLAX cephalexin 500 mg capsule Take 1 capsule (500 mg total) by mouth daily as needed (30 minutes prior to dental appt) When pt has procedures gets pre antibiotic r/t history knee replacements Commonly known as: KEFLEX cholecalciferol 5,000 unit capsule Take 1 capsule [...] times a day Commonly known as: LASIX Start taking on: December 11, 2023 gabapentin 600 mg tablet Take 1 tablet [...] 2 (two) times a day pantoprazole DR 40 mg EC tablet Take 1 tablet (40 mg total) by mouth daily For: Treatment of Non-Bleeding Gastric Disorder Commonly known as: PROTONIX Start taking on: December 11, 2023 senna-docusate 8.6-50 mg Take 1 tablet by mouth nightly Commonly known as: PERICOLACE tamsulosin 0.4 mg extended release capsule Take 2 capsules (0.8 mg total) by mouth daily with dinner Commonly known as: FLOMAX Outpatient Follow-Up: Future Appointments Date Time Provider Department Center 12/13/2023 1:20 PM Pan Irene MD URO BW MOB4 [facility] 12/14/2023 2:45 PM Katharine Hampton MD HEM CAM 7 WOOD Devendra 12/14/2023 3:45 PM LAB, CAM 7 ONC ONC LAB CAM7 WOOD ONC LAB 12/24/2023 2:20 PM [facility] BCT3 [facility] N CT [facility] Main IMG 12/24/2023 3:30 PM Carrie Jerez, BALL MILL OPERATOR SPINE [id number] NS OFF WORKER documented in this encounter Medications at Time [...] hours as needed for pain 12/10/2023 4 cephalexin (KEFLEX) 500 mg capsule Take 1 capsule (500 mg total) by mouth daily as needed (30 minutes prior to dental appt) When pt has procedures gets pre antibiotic r/t history knee replacements 10/09/2022 4 DILT-XR 240 mg 24 hr capsuleIndication [...] Refills Last Filled Start Date End Date acyclovir (ZOVIRAX) 400 mg tabletIndications :Chronic Suppression Take 1 tablet (400 mg total) by mouth 2 (two) times a day 12/10/2023 cholecalciferol (VITAMIN D-3) 5,000 unit capsuleIndication s:Vitamin D Deficiency Take 1 capsule (5,000 Units total) by mouth every morning 12/10/2023 cyclobenzaprine (FLEXERIL) 5 mg tablet Take 1 tablet (5 mg total) by mouth 3 (three) times a day as needed for muscle spasms 12/10/2023 tamsulosin (FLOMAX) 0.4 mg extended release capsule Take 2 capsules (0.8 mg total) by mouth daily with dinner 12/10/2023 senna-docusate (PERICOLACE) 8.6-50 mg Take 1 tablet by mouth nightly 12/10/[address] (PROTONIX) 40 mg EC tabletIndications :Treatment of Non-Bleeding Gastric Disorder Take 1 tablet (40 mg total) by mouth daily 12/11/2023 5 miconazole 2 % powder Apply topically 2 (two) times a day 12/10/2023 gabapentin (NEURONTIN) 600 mg tabletIndications :Pain Take 1 tablet (600 mg total) by mouth 3 (three) times a day 12/10/2023 5 furosemide (LASIX) 40 mg tablet Take 1 tablet (40 mg total) by mouth 2 (two) times a day 12/11/2023 5 bisacodyL (DULCOLAX) 10 mg suppositoryIndica tions:constipatio n Insert 1 suppository (10 mg total) into the rectum daily as needed for constipation 12/10/2023 DILT-XR 240 mg 24 hr capsuleIndication s:hypertension Take 1 capsule (240 mg total) by mouth 2 (two) times a day 12/10/2023 4 levETIRAcetam (KEPPRA) 1,000 mg tablet Take 1 tablet (1,000 mg total) by mouth 2 (two) times a day 12/10/2023 4 guaiFENesin (ROBITUSSIN) syrup 100 mg/5 mL Take 10 mL (200 mg total) by mouth 4 (four) times a day as needed for cough 12/10/2023 4 enoxaparin (LOVENOX) 80 mg/0.8 mL syringeIndication s:Venous Thrombosis Inject 0.8 mL (80 mg total) under the skin every 12 (twelve) hours 12/10/2023 4 acetaminophen 500 mg capsule Take 2 capsules (1,000 mg total) by mouth every 6 (six) hours as needed for pain 12/10/2023 4 documented in this encounter Discharge Disposition Disposition Code Departure Means Destination Comment s Discharge to an Rehab facility [facility] documented in this encounter Progress Notes * Madison Ma, NARENDRA - 12/10/2023 3:17 PM CST 12/10/23 1516 Discharge Summary Discharge Disposition Acute Rehab [facility] Facility [facility] Contact Number [phone] Facility Attending Name Geovany Facility Attending Contact Number [phone] Discharge Records Transfer Form Completed Equipment/Provider Needs No Home Needs Identified Discharge Additional Assistance Does the patient need discharge transport arranged? Yes Has discharge transport been arranged? Yes Details of Transportation [facility], #[id number] D/C Transport Anticipated Date 12/10/23 D/C Transport Anticipated Time 1630 Discharge Transportation Communication Mode of transport has been discussed with the patient/family. All are agreeable to the plan and understand their responsibilities to ensure the safe transfer. No further CM/SW intervention is anticipated at this time. Per medical team, patient is medically stable for discharge at this time. [facility] CM spoke with the patient/spouse, admissions, medical team, and RN regarding discharge planning, and all are agreeable to discharge. Post-acute care transfer packet completed and will be sent with the patient. RN provided with report number to nurses station ([phone] or [phone]). Room #314B provided by facility. Mode of transport has been discussed with the patient/family, MD, nursing staff. All are agreeable to plan and understand their responsibilities to ensure the safe transfer. [facility] to be [facility], #[id number] at 4:30 p.m. inside sales account manager informed patient/spouse that even if the patient's insurance benefit includes ambulance transport, it may not cover the full cost of the transportation. The patient may be responsible for any [id number] cost, including mileage beyond the nearestappropriate facility. Patient/spouse voiced understanding. If any further discharge needs arise, please contact the covering rn case manager. ARNULFO Romeo, seismic interpreter OFF WORKER * Jimenez Henao MD - 12/10/2023 2:39 PM CST Daily Progress Note Division of Hospital Medicine Name: Hira Evans : 1950 Today's Date: December 10, 2023 Age: 73 y.o. male Admission: 11/29/2023 Bed: [id number] LOS: 11 days Subjective Chief complaint: edema Interval History NAEO. VSS. UOP 3.2L. Swelling is improving. Weight decreasing. Feels pretty good this AM. Objective Scheduled Meds PRN Meds Infusions acyclovir, 400 mg, oral, BID cholecalciferol, 5,000 Units, oral, QAM dilTIAZem XR, 240 mg, oral, BID enoxaparin, 1 mg/kg, subcutaneous, Q12H CAMMY furosemide, 40 mg, oral, BID DIURETIC gabapentin, 600 mg, oral, TID levETIRAcetam, 1,000 mg, oral, BID miconazole, , topical, BID pantoprazole DR, 40 mg, oral, Daily senna-docusate, 1 tablet, oral, Nightly tamsulosin, 0.8 mg, oral, Daily with dinner acetaminophen, 1,000 mg, oral, Q6H PRN bisacodyL, 10 mg, rectal, Daily PRN cyclobenzaprine, 5 mg, oral, TID PRN guaiFENesin, 200 mg, oral, QID PRN ondansetron ODT, 4 mg, oral, Q6H PRN OR ondansetron, 4 mg, intravenous, Q6H PRN oxyCODONE, 5 mg, oral, Q4H PRN ramelteon, 8 mg, oral, Nightly PRN traZODone, 50 mg, oral, Nightly PRN Vitals Most Recent Vitals: T 36.8 ??C (98.2 ??F), HR 69, BP 115/72, RR 16, SpO2 99 %. 24hr Min/Max: Temp Min: 36.7 ??C (98.1 ??F) Max: 36.8 ??C (98.2 ??F) Pulse Min: 69 Max: 72 BP Min: 115/72 Max: 136/60 Resp Min: 16 Max: 16 SpO2 Min: 98 % Max: 99 % Intake/Output Summary (Last 24 hours) at 12/10/2023 1439 Last data filed at 12/10/2023 1010 Gross per 24 hour Intake 1420 ml Output 2700 ml Net -1280 ml Physical Exam Vitals and nursing note reviewed. Constitutional: General: He is not in acute distress. HENT: Head: Normocephalic and atraumatic. Eyes: General: No scleral icterus. Cardiovascular: Rate and Rhythm: Normal rate and regular rhythm. Pulmonary: Effort: Pulmonary effort is normal. Breath sounds: Normal breath sounds. Abdominal: Tenderness: There is no abdominal tenderness. Musculoskeletal: Comments: Dependent pitting edema to level of bilateral hips Neurological: Mental Status: He is alert. Comments: Conversant, moves BUE spontaneously. Has movement in toes and ankle on RLE, just toes LLE. Lines, Drains, Airways Peripheral IV 11/29/23 20 G Distal;Posterior;Right Forearm (Active) Peripheral IV 12/02/23 20 G Distal;Left;Posterior Forearm (Active) Urethral Catheter (Active) Labs/Diagnostic Review Na 137 Cl 102 BUN 22 K 3.7 CO2 26 Cr 0.77 Mg 1.7, G AST 27 ALT 34 Alk Phos 138 Ca 8.6 TP - Alb 3.0 Total Bili: 0.2 Direct Bili: <0.2 \ Hgb 9.0 / WBC 5.8 -------- Plt 320 / MCV 96.0 \ INR - (Labs above are the most recent result obtained in the last 24 hours. For additional labs/trends, see Epic.) I have reviewed the laboratory results. Imaging Review No results found. Assessment/Plan Prediabetes Assessment & Plan - Was on mounjaro as outpatient - has required intermittent SSI at [facility] - Diabetic diet, SSI ordered Seizure (HCC) Assessment & Plan - Patient developed reported seizure on 10/23 during or prior to cardiac arrest with bilateral SDH noted on imaging - placed on keppra through follow-up with NSGY next month Scrotal swelling Assessment & Plan - In setting of presumed DVT - no evidence of infection on exam - Scrotal Sling - Maintain harris catheter - DVT mgt per above - for edema, will continue IV lasix 40 mg BID, monitor electrolytes - at discharge will discharge on PO lasix 40 mg BID Lower extremity edema Assessment & Plan - Eval/mgt per above. NT-proBNP 105. Elevated transaminase level Assessment & Plan - AST 65, ALT 80, new on arrival- Unclear etiology at this time - possibly from IVC compression/distention in setting of potential thrombi? - Improving - will hold off on further imaging Hyponatremia Assessment & Plan Improved. Na low 130s over the past week, has improved with improved oral intake and remains in normal range with initiation of diuretic therapy. - CTM on lasix Paraspinal hematoma Assessment & Plan - Occurred on therapeutic anticoagulation in setting of recent lumbar decompression, with subsequent LE paralysis and emergent hematoma evacuation on 11/07 - Directly-admitted from [facility] - PT/OT - Orthopedics following - had sutures removed on 11/30 - note had some drainage from sutures, plan 7-10d course SSTI antibiotics using Bactrim for now - anticoagulation as elsewhere (see DVT ) Anemia Assessment & Plan - Stable Hgb ~8 - Maintain Hgb > 7 Paralysis of both lower limbs ([facility]/HCC) ([facility]) Assessment & Plan - Patient with paralysis of LE following recent spinal hematoma s/p emergent evacuation on 11/07 - Ongoing 11/09 strength of LE, sensation intact - Fall precautions Pulmonary embolism ([facility]) Assessment & Plan - Eval/mgt per above UTI (urinary tract infection) Assessment & Plan - Patient diagnosed with UTI in setting of harris catheter on 11/21 with growth of Enterobacter cloacae (S - bactrim, macrobid, cefepime) - he denies symptoms, though was noted to have leukocytosis that has improved - s/p treatment course of bactrim - discussion with urology regarding harris catheter exchange, recommend continuing existing catheteruntil 12/25/23 appointment with urology. Hydronephrosis with urinary obstruction due to renal calculus Assessment & Plan - Patient with noted progressed hydronephrosis during CT this month in setting of ureteral stones - No urinary retention or abd/back pain at this time - urology consulted: no intervention while inpatient. S/p treatment of UTI, harris can be continued for ~4wk from placement and would be OK with continuing through 12/25 ureteroscopy appt. With this onschedule, patient does not need to follow-up with Dr. Irene on 12/13 (appears to be holdover from prior). - repeat UA w/ reflex from 11/30 without evidence of clinically significant infection - has been on Macrobid, stopped in favor of Bactrim to also cover SSTI of back Prostate cancer ([facility]) Assessment & Plan - s/p prostatectomy HTN (hypertension) Assessment & Plan - Cont diltiazem - home ARB has been on hold at [facility] - continue to hold here initially * DVT (deep venous thrombosis) (CMS/HCC) ([facility]) Assessment & Plan Patient with complex history with cardiac arrest [...] repletion, will continue lasix 40 IV BID Code status : Full Code Diet : Adult Diet Regular PT/OT Dispo Rec : PT Recommendation/Plan: Inpatient Rehab Facility / OT Recommendation: Inpatient Rehab Facility Supplementary Attestation The total encounter time on this service date was 40 minutes which was spent performing a [id number] encounter and personally completing the provider-level activities documented in the note. This includes time spent prior to the visit and after the visit in direct care of the patient. This time does not include time spent in any separately reportable services. Jimenez Henao MD OFF WORKER * Tamia Luis, OT - 12/10/2023 10:24 AM CST Lymphedema Therapy Evaluation Note Subjective: Pt agreeable to Lymphedema Therapy assessment. Patient Observation: Patient found in supine. History of Present Illness/Past Medical History: HPI: DVT Past Medical History: Diagnosis Date Allergic rhinitis Arthritis OA Cancer (CMS/HCC) (HCC) prostate and melonomia Cauda equina compression (HCC) DVT (deep venous thrombosis) (CMS/HCC) (HCC) Gastric reflux GERD (gastroesophageal reflux disease) History of melanoma Hypertension Kidney stone Personal history of prostate cancer Pneumonia Pulmonary embolism (HCC) Seasonal allergies History of Edema: Pt reports he noticed swelling onset in his legs after he discharged from rehab. Pt reports swelling began in his ankles and then increased steadily in his legs. Prior Treatment for Edema: Pt reports he tried compression socks and lasix, but they did not help his swelling. Contraindications/Precautions for treatment: DVT, LE paralysis 12/10/23 1024 General Chart Reviewed Yes Session Type Re-Evaluation Session Type: Specialty Group Lymphedema Evaluation Safe Environment Arm band checked;Patient found in supine;Session completed bedside Subjective Agreeable to Therapy Family/Caregiver Present No Pain Assessment Pain Assessment No/denies pain Lymphedema Lymphedema Treatment Compression;Education;Skin care Compression Method Short stretch bandages;Foam;Other (comment) (scrotal bandage) Skin Care Washed and dried extremities;Applied low pH lotion Lymphedema location Left;Right;LE;Trunk;Penis;Scrotum Penis Non-retracted Scrotum Baseball Pitting 2+ Skin Integrity [place] hump;Flaking;Fibrosis;Hypohydrosis;Stemmer sign- positive;Shiny skin appearance;Squaring of toes;Taut;Impaired contour around bony prominences Area Temperature Normal Sensation Intact Recommendation Lymphedema Recommendation Skin care;Decongestive exercises;Compression bandaging;Lymphedema precautions;Compression education Wounds: No wounds observed this date. Stage: 2 Treatment Provided: Skin care and assessment performed, circumferential measurements taken. Compression bandaging applied to scrotum as noted below. Compression: Compression bandage applied to scrotum with velfoam sling followed by lenkelast and elastomull. Pt reports comfort. Education/Self Care: Pt educated on benefits of skin care to promote skin integrity and prevent infection. Pt also educated on positioning and exercises to assist in edema reduction, as well as compression bandaging wear schedule. Pt verbalized understanding with no additional questions at this time. Assessment/Prognosis: Pt continues to present with BLE, trunk, and scrotal edema impacting engagement in ADLs. Lymphedema Recommendations: Elevation, daily skin care, exercises, compression bandaging to scrotum Frequency: 4-5x/wk Plan: Continue with current plan. Multi-Disciplinary Problems (from Occupational Therapy) Active Problems Problem: Lymphedema Start Date: 12/10/23 Goal Start Date Expected End Date End Date STG - Patient will demonstrate understanding of skin care. 12/10/23 12/17/23 -- Goal Start Date Expected End Date End Date STG - Patient will demonstrate understanding of exercises and positioning for edema management. 12/10/23 12/17/23 -- Goal Start Date Expected End Date End Date STG - Patient will wear scrotal bandages without complications. 12/10/23 12/17/23 -- Goal Start Date Expected End Date End Date LTG - Patient will decrease girth by the following measure in treated area: 12/10/23 01/07/24 -- Goal Details: From baseball sized to golfball sized. Refer to Vital signs flowsheet, Care plan activity and Education activity for additional documentation. If this is the last therapy visit, this serves as the discharge summary. Tamia Luis OT 12/10/23 OFF WORKER * Jimenez Henao MD - 12/09/2023 11:27 AM CST Daily Progress Note Division of Hospital Medicine Name: Hira Evans : 1950 Today's Date: December 09, 2023 Age: 73 y.o. male Admission: 11/29/2023 Bed: [id number] LOS: 10 days Subjective Chief complaint: edema Interval History NAEO. VSS. UOP 3.7L on lasix 40 mg IV pm dose. Feels very well overall, says he is wiggling his toes more which he feels is an improvement. Scrotal edema is slightly better with wrapping though he feels swelling is still only slightly improved, mainly over dependent portions of abdomen/hips. Objective Scheduled Meds PRN Meds Infusions acyclovir, 400 mg, oral, BID cholecalciferol, 5,000 Units, oral, QAM dilTIAZem XR, 240 mg, oral, BID enoxaparin, 1 mg/kg, subcutaneous, Q12H CAMMY furosemide, 40 mg, intravenous, BID DIURETIC gabapentin, 600 mg, oral, TID levETIRAcetam, 1,000 mg, oral, BID miconazole, , topical, BID pantoprazole DR, 40 mg, oral, Daily senna-docusate, 1 tablet, oral, Nightly tamsulosin, 0.8 mg, oral, Daily with dinner acetaminophen, 1,000 mg, oral, Q6H PRN bisacodyL, 10 mg, rectal, Daily PRN cyclobenzaprine, 5 mg, oral, TID PRN guaiFENesin, 200 mg, oral, QID PRN ondansetron ODT, 4 mg, oral, Q6H PRN OR ondansetron, 4 mg, intravenous, Q6H PRN oxyCODONE, 5 mg, oral, Q4H PRN ramelteon, 8 mg, oral, Nightly PRN traZODone, 50 mg, oral, Nightly PRN Vitals Most Recent Vitals: T 36.7 ??C (98.1 ??F), HR 68, BP 101/60, RR 18, SpO2 96 %. 24hr Min/Max: Temp Min: 36.7 ??C (98.1 ??F) Max: 37 ??C (98.6 ??F) Pulse Min: 65 Max: 69 BP Min: 101/60 Max: 122/71 Resp Min: 16 Max: 18 SpO2 Min: 96 % Max: 99 % Intake/Output Summary (Last 24 hours) at 12/09/2023 1127 Last data filed at 12/09/2023 0830 Gross per 24 hour Intake 800 ml Output 3500 ml Net -2700 ml Physical Exam Vitals and nursing note reviewed. Constitutional: General: He is not in acute distress. HENT: Head: Normocephalic and atraumatic. Eyes: General: No scleral icterus. Cardiovascular: Rate and Rhythm: Normal rate and regular rhythm. Pulmonary: Effort: Pulmonary effort is normal. Breath sounds: Normal breath sounds. Abdominal: Tenderness: There is no abdominal tenderness. Musculoskeletal: Comments: Dependent pitting edema to level of bilateral hips Neurological: Mental Status: He is alert. Comments: Conversant, moves BUE spontaneously. Has movement in toes and ankle on RLE, just toes LLE. Lines, Drains, Airways Peripheral IV 11/29/23 20 G Distal;Posterior;Right Forearm (Active) Peripheral IV 12/02/23 20 G Distal;Left;Posterior Forearm (Active) Urethral Catheter (Active) Labs/Diagnostic Review Na 137 Cl 103 BUN 21 K 4.6 CO2 25 Cr 0.80 Mg 1.9, G AST 42 ALT 36 Alk Phos 138 Ca 9.0 TP - Alb 3.1 Total Bili: 0.2 Direct Bili: <0.2 \ Hgb 9.3 / WBC 5.6 -------- Plt 299 / MCV 93.5 \ INR - (Labs above are the most recent result obtained in the last 24 hours. For additional labs/trends, see Epic.) I have reviewed the laboratory results. Imaging Review No results found. Assessment/Plan Prediabetes Assessment & Plan - Was on mounjaro as outpatient - has required intermittent SSI at [facility] - Diabetic diet, SSI ordered Seizure ([facility]) Assessment & Plan - Patient developed reported seizure on 10/23 during or prior to cardiac arrest with bilateral SDH noted on imaging - placed on keppra through follow-up with NSGY next month Scrotal swelling Assessment & Plan - In setting of presumed DVT - no evidence of infection on exam - Scrotal Sling - Maintain harris catheter - DVT mgt per above - for edema, will continue IV lasix 40 mg BID, monitor electrolytes Lower extremity edema Assessment & Plan - Eval/mgt per above. NT-proBNP 105. Elevated transaminase level Assessment & Plan - AST 65, ALT 80, new on arrival- Unclear etiology at this time - possibly from IVC compression/distention in setting of potential thrombi? - Improving - will hold off on further imaging Hyponatremia Assessment & Plan Improved. Na low 130s over the past week, has improved with improved oral intake and remains in normal range with initiation of diuretic therapy. - CTM on lasix Paraspinal hematoma Assessment & Plan - Occurred on therapeutic anticoagulation in setting of recent lumbar decompression, with subsequent LE paralysis and emergent hematoma evacuation on 11/07 - Directly-admitted from [facility] - PT/OT - Orthopedics following - had sutures removed on 11/30 - note had some drainage from sutures, plan 7-10d course SSTI antibiotics using Bactrim for now - anticoagulation as elsewhere (see DVT ) Anemia Assessment & Plan - Stable Hgb ~8 - Maintain Hgb > 7 Paralysis of both lower limbs (CMS/HCC) ([facility]) Assessment & Plan - Patient with paralysis of LE following recent spinal hematoma s/p emergent evacuation on 11/07 - Ongoing 11/09 strength of LE, sensation intact - Fall precautions Pulmonary embolism ([facility]) Assessment & Plan - Eval/mgt per above UTI (urinary tract infection) Assessment & Plan - Patient diagnosed with UTI in setting of harris catheter on 11/21 with growth of Enterobacter cloacae (S - bactrim, macrobid, cefepime) - he denies symptoms, though was noted to have leukocytosis that has improved - Continue antibiotics at this time: bactrim Hydronephrosis with urinary obstruction due to renal calculus Assessment & Plan - Patient with noted progressed hydronephrosis during CT this month in setting of ureteral stones - No urinary retention or abd/back pain at this time - urology consulted: no intervention while inpatient. S/p treatment of UTI, harris can be continued for ~4wk from placement and would be OK with continuing through 12/25 ureteroscopy appt. With this onschedule, patient does not need to follow-up with Dr. Irene on 12/13 (appears to be holdover from prior). - repeat UA w/ reflex from 11/30 without evidence of clinically significant infection - has been on Macrobid, stopped in favor of Bactrim to also cover SSTI of back Prostate cancer ([facility]) Assessment & Plan - s/p prostatectomy HTN (hypertension) Assessment & Plan - Cont diltiazem - home ARB has been on hold at [facility] - continue to hold here initially * DVT (deep venous thrombosis) (CMS/HCC) ([facility]) Assessment & Plan Patient with complex history with cardiac arrest [...] 0.8-1.0 and electrolytes not requiring repletion, will increase lasix 40 IV BID Code status : Full Code Diet : Adult Diet Regular PT/OT Dispo Rec : PT Recommendation/Plan: Inpatient Rehab Facility / OT Recommendation: Inpatient Rehab Facility Supplementary Attestation The total encounter time on this service date was 35 minutes which was spent performing a [id number] encounter and personally completing the provider-level activities documented in the note. This includes time spent prior to the visit and after the visit in direct care of the patient. This time does not include time spent in any separately reportable services. Jimenez Henao MD OFF WORKER * Rebecca Leon, PT - 12/09/2023 8:36 AM CST Lymphedema Treatment Note Subjective: Patient is agreeable to lymphedema therapy treatment. Patient Observation: Patient found supine in bed in no apparent distress. 12/09/23 0836 General Session Type Treatment Session Type: Specialty Group Lymphedema Treatment Safe Environment Arm band checked;Patient found in supine Subjective Agreeable to Therapy Family/Caregiver Present No Pain Assessment Pain Assessment No/denies pain Lymphedema Lymphedema Treatment Compression;Education;Skin care Compression Method Short stretch bandages;Foam Skin Care Washed and dried extremities;Applied low pH lotion Lymphedema location Left;Right;LE;Penis;Scrotum Penis Non-retracted Scrotum Baseball Pitting 3+ Skin Integrity [place] hump;Fibrosis;Hypohydrosis;Stemmer sign-positive;Shiny skin appearance;Taut;Impaired contour around bony prominences Area Temperature Normal Sensation Intact Wounds: no wounds noted Treatment Provided: skin care, compression, education Compression: Compression bandaging to the genitals with Velfoam sling held with velcro, followed with Elastomull and Lenkelast Education/Self Care: Educated patient to remove compression bandaging if it becomes uncomfortable. Do not attempt to reapply bandaging. Assessment: Decreased lower extremity edema noted Frequency: 4-5 times per week Plan: Continue as planned Multi-Disciplinary Problems (from Physical Therapy) Active Problems Problem: Lymphedema Start Date: 12/06/23 Goal Start Date Expected End Date End Date STG - Patient will demonstrate understanding of skin care. 12/06/23 12/23/23 -- Goal Start Date Expected End Date End Date STG - Patient will demonstrate understanding of exercises and positioning for edema management. 12/06/23 12/23/23 -- Problem: Lymphedema Start Date: 12/09/23 Goal Start Date Expected End Date End Date STG - Patient will wear compression bandages without complications. 12/09/23 12/23/23 -- Goal Start Date Expected End Date End Date STG - Patient will decrease girth by the following measure in treated limb: 12/09/23 12/23/23 -- Goal Details: Scrotum to size of golf ball Refer to Vital signs flowsheet, Care plan activity and Education activity for additional documentation. If this is the last therapy visit, this serves as the discharge summary. Rebecca Leon, KATHIE 12/09/23 OFF WORKER OFF WORKER * Nasir Manzanares MD - 12/08/2023 11:06 AM CST Orthopaedic Spine Service Daily Progress Note Admit Date: 11/29/2023 Hospital Day: 9 [place] Dx: BLE DVTs -- consult for guidance w/ anticoagulation Relevant PMHx: postop cardiac arrest and b/l PE s/p therapeutic anticoagulation c/b hematoma and cauda equina s/p decompression 11/08/23, prostate CA s/p prostatectomy, GERD, obesity, CKD, UTI, melanoma Plan: Ongoing discussion with heme/ortho spine/hospitalist w/ plan for possible hep gtt starting 11/30 Procedure(s): 10/23/23: L4-L5 decompression, TLIF, PSF 11/08/23: T5-L5 laminectomies w/hematoma evacuation and lumbar dural repair Interval History: AFVSS. Hbg 8.6 (8.5). Remains on lovenox with stable Hgb. On Lasix for BLE edema with significant UOP and stable electrolytes. Continues to work with PT/OT. Remains optimistic and motivated to work with therapy. Exam: Motor and sensory function at baseline. 2+ pitting edema in BLE. Awaiting acceptance back to [facility] (likely Sunday, 12/10). Rec lower extremity compression as well for swelling Objective Vitals: 24hr Min/Max: Temp Min: 36.6 ??C (97.8 ??F) Max: 36.7 ??C (98.1 ??F) Pulse Min: 68 Max: 85 BP Min: 114/74 Max: 133/76 Resp Min: 18 Max: 18 SpO2 Min: 98 % Max: 99 % I/O last 2 completed shifts: In: - Out: 4250 [Urine:4250] I/O this shift: In: - Out: 800 [Urine:800] Physical Exam: Bilateral lower extremity edema 1/5 strength of the left EHL, 1/5 strength of the right tibialis anterior, and 2/5 strength of the right EHL and gastroc; otherwise, 0/5 strength throughout bilateral lower extremities Sensation intact to light touch BLE/BUE 2+ Pitting edema BLE Lab/Diagnostic Review: Recent Labs Lab Units 12/08/23 0408 12/05/23 0759 12/05/23 0506 SODIUM mmol/L 139 < > -- POTASSIUM PLASMA mmol/L 3.9 < > -- CHLORIDE mmol/L 106 < > -- CO2 mmol/L 24 < > -- ANIONGAP mmol/L 9 < > -- GLUCOSE mg/dL 93 < > -- POC GLUCOSE MONITOR -- < > -- BUN SERUM mg/dL 19 < > -- CREATININE mg/dL 0.83 < > -- CALCIUM mg/dL 8.8 < > -- ALBUMIN g/dL 2.8* < > -- ALK PHOS Units/L 131* < > -- ALT Units/L 32 < > -- AST Units/L 24 < > -- BILIRUBIN TOTAL mg/dL 0.2 < > -- WBC K/cumm 5.1 < > -- HEMOGLOBIN g/dL 8.6* < > -- HEMATOCRIT % 26.6* < > -- PLATELETS K/cumm 286 < > -- NEUTROS PCT % 53.6 < > -- LYMPHS PCT % 29.3 < > -- MONOS PCT % 9.6 < > -- EOS PCT % 5.7 < > -- APTT sec -- -- 81* < > = values in this interval not displayed. Micro: Lab Results Component Value Date MICROBIOLOGY 11/30/2023 Final Report: Less than 100,000 colonies/mL (clinically insignificant growth based on current clinical standards) MICROBIOLOGY (.) 11/21/2023 Final Report: Greater than or equal to 100,000 colonies/mL of Enterobacter cloacae complex MICROBIOLOGY Final Report: No growth 10/14/2023 MICROBIOLOGY Final Report: No growth 10/13/2023 MICROBIOLOGY Final Report: No growth 10/13/2023 MICROBIOLOGY Final Report: No growth 10/12/2023 MICROBIOLOGY Final Report: No growth 10/12/2023 MICROBIOLOGY (.) 10/12/2023 Final Report: Greater than or equal to 100,000 colonies/mL of Escherichia coli Greater than or equal to 100,000 colonies/mL of Escherichia coli #2 For susceptibility results, refer to accession number [id number] on the urine culture from 10/11/23 MICROBIOLOGY (.) 10/11/2023 Final Report: Greater than or equal to 100,000 colonies/mL of Escherichia coli Greater than or equal to 100,000 colonies/mL of Escherichia coli #2 MICROBIOLOGY 03/15/2023 Final Report: Less than 100,000 colonies/mL (clinically insignificant growth based on current clinical standards) MICROBIOLOGY Final Report: No growth 09/24/2019 Plan Remain on lovenox Off the shelf TLSO when out of bed Q4 neuro checks Bactrim completed on 12/06 Compression stockings for BLE swelling Ortho will continue to follow while patient is in house Ok to dc back to [facility] spine from ortho standpoint Nasir Manzanares MD Orthopaedic surgery PGY2 Please call with questions during daytime. See below for overnight issues. If you know the resident's name on the appropriate orthopaedic surgery team, please use [email or web address] to page resident directly. If questions arise and the appropriate resident can't be reached or you are calling overnight, please contact [phone] (Sun- 7:30 PM - 6:30 AM - Floor Resident) or [phone] (24 hours/day - Consult Resident) Cosigned by Marcial Vu MD at 12/11/2023 10:49 AM BOIL OFF WORKER OFF WORKER OFF WORKER * Jimenez Henao MD - 12/08/2023 10:51 AM CST Daily Progress Note Division of Hospital Medicine Name: Hira Evans : 1950 Today's Date: December 08, 2023 Age: 73 y.o. male Admission: 11/29/2023 Bed: [id number] LOS: 9 days Subjective Chief complaint: edema Interval History NAEO. VSS. Swelling remains though still with brisk UOP on lasix 20 mg IV BID. No significant electrolyte abnormalities. Discussed if any updates on TRISL timing were known, will discuss with CM. Objective Scheduled Meds PRN Meds Infusions acetaminophen, 1,000 mg, oral, Q6H acyclovir, 400 mg, oral, BID cholecalciferol, 5,000 Units, oral, QAM dilTIAZem XR, 240 mg, oral, BID enoxaparin, 1 mg/kg, subcutaneous, Q12H CAMMY furosemide, 20 mg, intravenous, BID DIURETIC gabapentin, 600 mg, oral, TID levETIRAcetam, 1,000 mg, oral, BID miconazole, , topical, BID pantoprazole DR, 40 mg, oral, Daily senna-docusate, 1 tablet, oral, Nightly tamsulosin, 0.8 mg, oral, Daily with dinner bisacodyL, 10 mg, rectal, Daily PRN cyclobenzaprine, 5 mg, oral, TID PRN ondansetron ODT, 4 mg, oral, Q6H PRN OR ondansetron, 4 mg, intravenous, Q6H PRN oxyCODONE, 5 mg, oral, Q4H PRN ramelteon, 8 mg, oral, Nightly PRN traZODone, 50 mg, oral, Nightly PRN Vitals Most Recent Vitals: T 36.6 ??C (97.9 ??F), HR 85, BP 125/68, RR 18, SpO2 99 %. 24hr Min/Max: Temp Min: 36.6 ??C (97.8 ??F) Max: 36.7 ??C (98.1 ??F) Pulse Min: 68 Max: 85 BP Min: 114/74 Max: 133/76 Resp Min: 18 Max: 18 SpO2 Min: 98 % Max: 99 % Intake/Output Summary (Last 24 hours) at 12/08/2023 1051 Last data filed at 12/08/2023 1035 Gross per 24 hour Intake -- Output 4050 ml Net -4050 ml Physical Exam Vitals and nursing note reviewed. Constitutional: General: He is not in acute distress. HENT: Head: Normocephalic and atraumatic. Eyes: General: No scleral icterus. Cardiovascular: Rate and Rhythm: Normal rate and regular rhythm. Pulmonary: Effort: Pulmonary effort is normal. Breath sounds: Normal breath sounds. Abdominal: Tenderness: There is no abdominal tenderness. Musculoskeletal: Comments: Dependent pitting edema to level of bilateral hips Neurological: Mental Status: He is alert. Comments: Conversant, moves BUE spontaneously. Has movement in toes and ankle on RLE, just toes LLE. Lines, Drains, Airways Peripheral IV 11/29/23 20 G Distal;Posterior;Right Forearm (Active) Peripheral IV 12/02/23 20 G Distal;Left;Posterior Forearm (Active) Urethral Catheter (Active) Labs/Diagnostic Review Na 139 Cl 106 BUN 19 K 3.9 CO2 24 Cr 0.83 Mg 1.9, G AST 24 ALT 32 Alk Phos 131 Ca 8.8 TP - Alb 2.8 Total Bili: 0.2 Direct Bili: <0.2 \ Hgb 8.6 / WBC 5.1 -------- Plt 286 / MCV 93.3 \ INR - (Labs above are the most recent result obtained in the last 24 hours. For additional labs/trends, see Epic.) I have reviewed the laboratory results. Imaging Review No results found. Assessment/Plan Prediabetes Assessment & Plan - Was on mounjaro as outpatient - has required intermittent SSI at [facility] - Diabetic diet, SSI ordered Seizure (HCC) Assessment & Plan - Patient developed reported seizure on 10/23 during or prior to cardiac arrest with bilateral SDH noted on imaging - placed on keppra through follow-up with [facility] next month Scrotal swelling Assessment & Plan - In setting of presumed DVT - no evidence of infection on exam - Scrotal Sling - Maintain harris catheter - DVT mgt per above - for edema, will continue IV lasix 20 mg BID, monitor electrolytes Lower extremity edema Assessment & Plan - Eval/mgt per above. NT-proBNP 105. Elevated transaminase level Assessment & Plan - AST 65, ALT 80, new on arrival- Unclear etiology at this time - possibly from IVC compression/distention in setting of potential thrombi? - Improving - will hold off on further imaging Hyponatremia Assessment & Plan Improved. Na low 130s over the past week, has improved with improved oral intake and remains in normal range with initiation of diuretic therapy. - CTM on lasix Paraspinal hematoma Assessment & Plan - Occurred on therapeutic anticoagulation in setting of recent lumbar decompression, with subsequent LE paralysis and emergent hematoma evacuation on 11/07 - Directly-admitted from [facility] - PT/OT - Orthopedics following - had sutures removed on 11/30 - note had some drainage from sutures, plan 7-10d course SSTI antibiotics using Bactrim for now - anticoagulation as elsewhere (see DVT ) Anemia Assessment & Plan - Stable Hgb ~8 - Maintain Hgb > 7 Paralysis of both lower limbs (CMS/HCC) ([facility]) Assessment & Plan - Patient with paralysis of LE following recent spinal hematoma s/p emergent evacuation on 11/07 - Ongoing 11/09 strength of LE, sensation intact - Fall precautions Pulmonary embolism ([facility]) Assessment & Plan - Eval/mgt per above UTI (urinary tract infection) Assessment & Plan - Patient diagnosed with UTI in setting of harris catheter on 11/21 with growth of Enterobacter cloacae (S - bactrim, macrobid, cefepime) - he denies symptoms, though was noted to have leukocytosis that has improved - Continue antibiotics at this time: bactrim Hydronephrosis with urinary obstruction due to renal calculus Assessment & Plan - Patient with noted progressed hydronephrosis during CT this month in setting of ureteral stones - No urinary retention or abd/back pain at this time - urology consulted: no intervention while inpatient. S/p treatment of UTI, harris can be continued for ~4wk from placement and would be OK with continuing through 12/25 ureteroscopy appt. With this onschedule, patient does not need to follow-up with Dr. Irene on 12/13 (appears to be holdover from prior). - repeat UA w/ reflex from 11/30 without evidence of clinically significant infection - has been on Macrobid, stopped in favor of Bactrim to also cover SSTI of back Prostate cancer (HCC) Assessment & Plan - s/p prostatectomy HTN (hypertension) Assessment & Plan - Cont diltiazem - home ARB has been on hold at [facility] - continue to hold here initially * DVT (deep venous thrombosis) (CMS/HCC) (HCC) Assessment & Plan Patient with complex history with cardiac arrest [...] 0.8-1.0 and electrolytes not requiring repletion, will increase lasix 40 IV BID Code status : Full Code Diet : Adult Diet Regular PT/OT Dispo Rec : PT Recommendation/Plan: Inpatient Rehab Facility / OT Recommendation: Inpatient Rehab Facility Supplementary Attestation The total encounter time on this service date was 35 minutes which was spent performing a [id number] encounter and personally completing the provider-level activities documented in the note. This includes time spent prior to the visit and after the visit in direct care of the patient. This time does not include time spent in any separately reportable services. Jimenez Henao MD OFF WORKER * Katharine Soto, OT - 12/07/2023 2:55 PM CST Occupational Therapy 12/07/23 1455 General Session Type Treatment OT Received On 12/07/23 Safe Environment Arm band checked;Patient found in supine;Session completed bedside;Gait belt not utilized, see comment (No OOB mobility) Subjective Agreeable to Therapy Family/Caregiver Present Yes () Precautions Precautions Spinal/Back;Fall risk;Seizure Weight Bearing Restrictions No Braces/Orthoses TLSO (Log rolled into TLSO) Precaution Comments Reviewed spinal precautions and use of TLSO. Pain Assessment Pain Assessment No/denies pain Balance Balance Yes Static Sitting Balance Static Sitting-Balance Support Bilateral upper extremity supported;Feet supported Static Sitting-Sitting Surface Bed Static Sitting-Level of Assistance Contact guard;Minimum assistance;Moderate assistance Static Sitting-Comment/# of Minutes Patient's sitting balance fluctuating. Briefly sat with CGA with BUE support but fatigues quickly requiring min-mod assist for balance. ADL ADLS (WDL) X Grooming Grooming: Where assessed Supine, bed Grooming: Level of assistance Moderate Assist Grooming: Assistance with Safety (Total assist for balance) LE Dressing LE Dressing: Where assessed Supine, bed LE Dressing: Level of assistance Dependent Bed Mobility Bed Mobility Yes Bed Mobility 1 Bed Mobility From 1 Supine Bed Mobility Type 1 To and from Bed Mobility to 1 Rolling right;Rolling left Level of Assistance 1 Moderate Assist Bed Mobility Comments 1 Assist for trunk rotation and force production. Bed Mobility 2 Bed Mobility From 2 Supine Bed Mobility Type 2 To and from Bed Mobility to 2 Edge of Bed (Log roll) Level of Assistance 2 Maximum Assist (x2) Bed Mobility Comments 2 Max assist of 2 for management of LE's and trunk elevation. Transfers Transfer No Toilet Transfers Toilet Transfers Not tested (2/2 safety\) RUE Assessment RUE Assessment WFL LUE Assessment LUE Assessment WFL Cognition Arousal/Alertness Alert;Appropriate responses to stimuli Attention Span Appears intact Memory Appears intact Current communication Appears Intact Orientation Oriented X4 (person, place, time, situation) Following Commands Follows all commands and directions without difficulty Safety Judgment Good awareness of safety precautions Awareness of Errors Good awareness of errors made Insight Fully aware of deficits Daily Activity - 6 Clicks Putting on and taking off regular lower body clothing 1 Bathing 1 Toileting 1 Putting on and taking off upper body clothing 2 Personal Grooming 2 Eating Meals 3 Total Score (range 6-24) 10 Score Interpretation 27.31 Safe Environment End of Therapy Session Safe Environment End of Therapy Session Patient left supine in bed;RN notified;Call light within reach;Overbed table within reach;Bed in lowest position with wheels locked;Bed rails up per protocol (RN present at end of session.) Assessment Problem List Decreased endurance;Decreased functional mobility;Decreased balance;Decreased ADL independence;Decreased IADL independence Barriers to Discharge Current Mobility Status;Current ADL Status Plan Plan Continue with current plan;If this is the last note, consider this the discharge summary Recommendation/Plan OT Recommendation Inpatient Rehab Facility Patient at high risk for Falls;Readmission;Injury due to decreased ability to care for self;Injury due to reduced functional status;Injury due to balance deficits;Injury at home as patient has not returned to prior level of function;Developing impaired skin integrity Recommend Inpatient Rehab/Acute Rehab due to Ability to actively participate in intensive therapy 3hours/day, 5 days/week or 900 minutes per week;Highly motivated to participate in therapy;Not at baseline due to impaired ability to complete ADLs;Impaired ability to complete functional mobility;Likely to return to the community at discharge with support system in place;Requires greater than 25% physical assistance with most mobility tasks;Requires multiple therapy disciplines to address functional deficits;Requires greater than 25% physical assistance with most ADL tasks OT Frequency during current admission 3-5x/wk Treatment/Interventions during current admission ADL/IADL retraining;Balance Training;Bed mobility;Endurance training;Functional activity;Functional mobility training;Functional transfer training Progress during current admission Improving as expected OT - Next Appointment 12/10/23 Occupational Therapy Progress Note NOTE: This is a summary note of the jones components of the treatment session. For full details, review chart for all flowsheets documented on by this occupational therapy clinician on this date. Vitalsigns documented in vital signs flowsheet. Care plan progress documented in Care Plan Activity. For questions, please review the treatment team and contact the occupational therapist currently assigned to this patient. If an occupational therapist is not assigned to this patient, please call [phone]. Multi-Disciplinary Problems (from Occupational Therapy) Active Problems Problem: Dressings Lower Extremities Start Date: 12/04/23 Goal Start Date Expected End Date End Date STG - Patient to complete lower body dressing 12/04/23 12/11/23 -- Goal Details: With Min A using AE PRN Problem: Grooming Start Date: 12/04/23 Goal Start Date Expected End Date End Date STG - Patient will complete grooming 12/04/23 12/11/23 -- Goal Details: With Min A Problem: Toileting Start Date: 12/04/23 Goal Start Date Expected End Date End Date STG - Patient will complete toileting tasks with 12/04/23 12/11/23 -- Goal Details: Min A Problem: Transfers Start Date: 12/04/23 Goal Start Date Expected End Date End Date STG - Patient will perform toilet transfer 12/04/23 12/11/23 -- Goal Details: To BSC with Min A Problem: OT Misc Start Date: 12/04/23 Goal Start Date Expected End Date End Date OT LTG - Misc 1 12/04/23 12/11/23 -- Goal Details: Pt will complete all ADLs with SBA using AE PRN OFF WORKER * Jimenez Henao MD - 12/07/2023 11:39 AM CST Daily Progress Note Division of Hospital Medicine Name: Hira Evans : 1950 Today's Date: December 07, 2023 Age: 73 y.o. male Admission: 11/29/2023 Bed: [id number] LOS: 8 days Subjective Chief complaint: edema Interval History NAEO. VSS. Mentions dry mouth and swelling slightly improved but not going down as fast as I want . Net negative 1.875L. Cr to 1.05 which appears near baseline but will not push diuresis, will return to IV lasix 20 mg BID. Discussed with patient OT lymphedema plan, which he is wanting to go ahead and trial. Discussion with urology. OK to continue harris catheter, will not need follow-up with Dr. Irene as he is due for ureteroscopy on 12/25. Catheter can be exchanged prior to d/c to acute rehab though also can be continued through 2/20 procedure. Objective Scheduled Meds PRN Meds Infusions acetaminophen, 1,000 mg, oral, Q6H acyclovir, 400 mg, oral, BID cholecalciferol, 5,000 Units, oral, QAM dilTIAZem XR, 240 mg, oral, BID enoxaparin, 1 mg/kg, subcutaneous, Q12H CAMMY furosemide, 20 mg, intravenous, BID DIURETIC gabapentin, 600 mg, oral, TID levETIRAcetam, 1,000 mg, oral, BID miconazole, , topical, BID pantoprazole DR, 40 mg, oral, Daily senna-docusate, 1 tablet, oral, Nightly tamsulosin, 0.8 mg, oral, Daily with dinner bisacodyL, 10 mg, rectal, Daily PRN cyclobenzaprine, 5 mg, oral, TID PRN ondansetron ODT, 4 mg, oral, Q6H PRN OR ondansetron, 4 mg, intravenous, Q6H PRN oxyCODONE, 5 mg, oral, Q4H PRN ramelteon, 8 mg, oral, Nightly PRN traZODone, 50 mg, oral, Nightly PRN Vitals Most Recent Vitals: T 36.9 ??C (98.4 ??F), HR 71, BP 111/75, RR 18, SpO2 100 %. 24hr Min/Max: Temp Min: 36.6 ??C (97.9 ??F) Max: 36.9 ??C (98.4 ??F) Pulse Min: 58 Max: 71 BP Min: 109/66 Max: 115/70 Resp Min: 18 Max: 18 SpO2 Min: 99 % Max: 100 % Intake/Output Summary (Last 24 hours) at 12/07/2023 1139 Last data filed at 12/07/2023 0625 Gross per 24 hour Intake 920 ml Output 2375 ml Net -1455 ml Physical Exam Vitals and nursing note reviewed. Constitutional: General: He is not in acute distress. HENT: Head: Normocephalic and atraumatic. Eyes: General: No scleral icterus. Cardiovascular: Rate and Rhythm: Normal rate and regular rhythm. Pulmonary: Effort: Pulmonary effort is normal. Breath sounds: Normal breath sounds. Abdominal: Tenderness: There is no abdominal tenderness. Musculoskeletal: Comments: Dependent pitting edema to level of bilateral hips Neurological: Mental Status: He is alert. Comments: Conversant, moves BUE spontaneously. Has movement in toes and ankle on RLE, just toes LLE. Lines, Drains, Airways Peripheral IV 11/29/23 20 G Distal;Posterior;Right Forearm (Active) Peripheral IV 12/02/23 20 G Distal;Left;Posterior Forearm (Active) Urethral Catheter (Active) Labs/Diagnostic Review Na 137 Cl 104 BUN 21 K 4.0 CO2 24 Cr 1.05 Mg 1.9, G AST 29 ALT 37 Alk Phos 132 Ca 8.5 TP - Alb 2.8 Total Bili: 0.2 Direct Bili: <0.2 \ Hgb 8.5 / WBC 5.2 -------- Plt 286 / MCV 94.6 \ INR - (Labs above are the most recent result obtained in the last 24 hours. For additional labs/trends, see Epic.) I have reviewed the laboratory results. Imaging Review No results found. Assessment/Plan Prediabetes Assessment & Plan - Was on mounjaro as outpatient - has required intermittent SSI at [facility] - Diabetic diet, SSI ordered Seizure (HCC) Assessment & Plan - Patient developed reported seizure on 10/23 during or prior to cardiac arrest with bilateral SDH noted on imaging - placed on keppra through follow-up with NSGY next month Scrotal swelling Assessment & Plan - In setting of presumed DVT - no evidence of infection on exam - Scrotal Sling - Maintain harris catheter - DVT mgt per above - for edema, will continue IV lasix 20 mg BID, monitor electrolytes Lower extremity edema Assessment & Plan - Eval/mgt per above. NT-proBNP 105. Elevated transaminase level Assessment & Plan - AST 65, ALT 80, new on arrival- Unclear etiology at this time - possibly from IVC compression/distention in setting of potential thrombi? - Improving - will hold off on further imaging Hyponatremia Assessment & Plan Improved. Na low 130s over the past week, has improved with improved oral intake and remains in normal range with initiation of diuretic therapy. - CTM on lasix Paraspinal hematoma Assessment & Plan - Occurred on therapeutic anticoagulation in setting of recent lumbar decompression, with subsequent LE paralysis and emergent hematoma evacuation on 11/07 - Directly-admitted from [facility] - PT/OT - Orthopedics following - had sutures removed on 11/30 - note had some drainage from sutures, plan 7-10d course SSTI antibiotics using Bactrim for now - anticoagulation as elsewhere (see DVT ) Anemia Assessment & Plan - Stable Hgb ~8 - Maintain Hgb > 7 Paralysis of both lower limbs ([facility]) ([facility]) Assessment & Plan - Patient with paralysis of LE following recent spinal hematoma s/p emergent evacuation on 11/07 - Ongoing 11/09 strength of LE, sensation intact - Fall precautions Pulmonary embolism ([facility]) Assessment & Plan - Eval/mgt per above UTI (urinary tract infection) Assessment & Plan - Patient diagnosed with UTI in setting of harris catheter on 11/21 with growth of Enterobacter cloacae (S - bactrim, macrobid, cefepime) - he denies symptoms, though was noted to have leukocytosis that has improved - Continue antibiotics at this time: bactrim Hydronephrosis with urinary obstruction due to renal calculus Assessment & Plan - Patient with noted progressed hydronephrosis during CT this month in setting of ureteral stones - No urinary retention or abd/back pain at this time - urology consulted: no intervention while inpatient. S/p treatment of UTI, harris can be continued for ~4wk from placement and would be OK with continuing through 12/25 ureteroscopy appt. With this onschedule, patient does not need to follow-up with Dr. Irene on 12/13 (appears to be holdover from prior). - repeat UA w/ reflex from 11/30 without evidence of clinically significant infection - has been on Macrobid, stopped in favor of Bactrim to also cover SSTI of back Prostate cancer ([facility]) Assessment & Plan - s/p prostatectomy HTN (hypertension) Assessment & Plan - Cont diltiazem - home ARB has been on hold at [facility] - continue to hold here initially * DVT (deep venous thrombosis) ([facility]) ([facility]) Assessment & Plan Patient with complex history with cardiac arrest [...] anticoagulation - for BLE edema, as Cr returned to 1.05, will decrease to IV lasix 20 mg BID. Code status : Full Code Diet : Adult Diet Regular PT/OT Dispo Rec : PT Recommendation/Plan: Inpatient Rehab Facility / OT Recommendation: Inpatient Rehab Facility Supplementary Attestation The total encounter time on this service date was 46 minutes which was spent performing a [id number] encounter and personally completing the provider-level activities documented in the note. This includes time spent prior to the visit and after the visit in direct care of the patient. This time does not include time spent in any separately reportable services. Jimenez Henao MD OFF WORKER OFF WORKER * Jimenez Henao MD - 12/06/2023 1:52 PM CST Daily Progress Note Division of Hospital Medicine Name: Hira Evans : 1950 Today's Date: December 06, 2023 Age: 73 y.o. male Admission: 11/29/2023 Bed: [id number] LOS: 7 days Subjective Chief complaint: edema Interval History NAEON. VSS. Hgb stable on lovenox. UOP brisk with IV lasix 20 mg BID, will continue diuresis at this time as he states he feels like it is helping somewhat, denies lightheadedness/dizziness, feels well overall. Tolerating lovenox BID, will plan on having anti factor Xa level drawn overnight to assess if patient requires dose adjustment given bleed history. Objective Scheduled Meds PRN Meds Infusions acetaminophen, 1,000 mg, oral, Q6H acyclovir, 400 mg, oral, BID cholecalciferol, 5,000 Units, oral, QAM dilTIAZem XR, 240 mg, oral, BID enoxaparin, 1 mg/kg, subcutaneous, Q12H CAMMY furosemide, 20 mg, intravenous, BID DIURETIC gabapentin, 600 mg, oral, TID levETIRAcetam, 1,000 mg, oral, BID miconazole, , topical, BID pantoprazole DR, 40 mg, oral, Daily potassium chloride ER, 20 mEq, oral, Once senna-docusate, 1 tablet, oral, Nightly sulfamethoxazole-trimethoprim, 160 mg of trimethoprim, oral, BID tamsulosin, 0.8 mg, oral, Daily with dinner bisacodyL, 10 mg, rectal, Daily PRN cyclobenzaprine, 5 mg, oral, TID PRN ondansetron ODT, 4 mg, oral, Q6H PRN OR ondansetron, 4 mg, intravenous, Q6H PRN oxyCODONE, 5 mg, oral, Q4H PRN ramelteon, 8 mg, oral, Nightly PRN traZODone, 50 mg, oral, Nightly PRN Vitals Most Recent Vitals: T 37 ??C (98.6 ??F), HR 65, BP 112/70, RR 18, SpO2 100 %. 24hr Min/Max: Temp Min: 36.7 ??C (98.1 ??F) Max: 37 ??C (98.6 ??F) Pulse Min: 64 Max: 66 BP Min: 104/68 Max: 112/70 Resp Min: 16 Max: 18 SpO2 Min: 99 % Max: 100 % Intake/Output Summary (Last 24 hours) at 12/06/2023 1352 Last data filed at 12/06/2023 1227 Gross per 24 hour Intake 1550 ml Output 4100 ml Net -2550 ml Physical Exam Vitals and nursing note reviewed. Constitutional: General: He is not in acute distress. HENT: Head: Normocephalic and atraumatic. Eyes: General: No scleral icterus. Cardiovascular: Rate and Rhythm: Normal rate and regular rhythm. Pulmonary: Effort: Pulmonary effort is normal. Breath sounds: Normal breath sounds. Abdominal: Tenderness: There is no abdominal tenderness. Musculoskeletal: Comments: Dependent pitting edema to level of bilateral hips Neurological: Mental Status: He is alert. Comments: Conversant, moves BUE spontaneously. Has movement in toes and ankle on RLE, just toes LLE. Lines, Drains, Airways Peripheral IV 11/29/23 20 G Distal;Posterior;Right Forearm (Active) Peripheral IV 12/02/23 20 G Distal;Left;Posterior Forearm (Active) Urethral Catheter (Active) Labs/Diagnostic Review Na 137 Cl 105 BUN 19 K 3.6 CO2 22 Cr 0.80 Mg 1.8, G AST 37 ALT 47 Alk Phos 146 Ca 8.2 TP - Alb 2.9 Total Bili: 0.2 Direct Bili: <0.2 \ Hgb 8.8 / WBC 5.5 -------- Plt 286 / MCV 92.9 \ INR - (Labs above are the most recent result obtained in the last 24 hours. For additional labs/trends, see Epic.) I have reviewed the laboratory results. Imaging Review No results found. Assessment/Plan Prediabetes Assessment & Plan - [facility] - has required intermittent SSI at [facility] - Diabetic diet, SSI ordered Seizure (HCC) Assessment & Plan - Patient developed reported seizure on 10/23 during or prior to cardiac arrest with bilateral SDH noted on imaging - placed on keppra through follow-up with NSGY next month Scrotal swelling Assessment & Plan - In setting of presumed DVT - no evidence of infection on exam - Scrotal Sling - Maintain harris catheter - DVT mgt per above - for edema, will continue IV lasix 20 mg BID, monitor electrolytes Lower extremity edema Assessment & Plan - Eval/mgt per above. NT-proBNP 105. Elevated transaminase level Assessment & Plan - AST 65, ALT 80, new on arrival- Unclear etiology at this time - possibly from IVC compression/distention in setting of potential thrombi? - Improving - will hold off on further imaging Hyponatremia Assessment & Plan - Na low 130s over the past week - Check Sosm, Uosm, Stephanie - CTM Paraspinal hematoma Assessment & Plan - Occurred on therapeutic anticoagulation in setting of recent lumbar decompression, with subsequent LE paralysis and emergent hematoma evacuation on 11/07 - Directly-admitted from [facility] - PT/OT - Orthopedics following - had sutures removed on 11/30 - note had some drainage from sutures, plan 7-10d course SSTI antibiotics using Bactrim for now - anticoagulation as elsewhere (see DVT ) Anemia Assessment & Plan - Stable Hgb ~8 - Maintain Hgb > 7 Paralysis of both lower limbs ([facility]) ([facility]) Assessment & Plan - Patient with paralysis of LE following recent spinal hematoma s/p emergent evacuation on 11/07 - Ongoing 11/09 strength of LE, sensation intact - Fall precautions Pulmonary embolism ([facility]) Assessment & Plan - Eval/mgt per above UTI (urinary tract infection) Assessment & Plan - Patient diagnosed with UTI in setting of harris catheter on 11/21 with growth of Enterobacter cloacae (S - bactrim, macrobid, cefepime) - he denies symptoms, though was noted to have leukocytosis that has improved - Continue antibiotics at this time: bactrim Hydronephrosis with urinary obstruction due to renal calculus Assessment & Plan - Patient with noted progressed hydronephrosis during CT this month in setting of ureteral stones - No urinary retention or abd/back pain at this time - urology consulted, appreciate recommendations - repeat UA w/ reflex from 11/30 without evidence of clinically significant infection - has been on Macrobid, stopped in favor of Bactrim to also cover SSTI of back Prostate cancer ([facility]) Assessment & Plan - s/p prostatectomy HTN (hypertension) Assessment & Plan - Cont diltiazem - home ARB has been on hold at [facility] - continue to hold here initially * DVT (deep venous thrombosis) ([facility]) ([facility]) Assessment & Plan Patient with complex history with cardiac arrest [...] neurovascular checks - continue Lovenox 1mg/kg BID, will get anti factor-Xa level after 3rd dose per pharmacy recs - Patient and counseled on warning symptoms for bleeding; currently hgb stable - Transfused 1 unit PRBCs (12/02) w/ appropriate rise - Monitor CBC on anticoagulation - for BLE edema, tolerated IV lasix 20 mg BID, will increase PM lasix dose today to IV 40 mg with close monitoring of electrolytes Code status : Full Code Diet : Adult Diet Regular PT/OT Dispo Rec : PT Recommendation/Plan: Inpatient Rehab Facility / OT Recommendation: Inpatient Rehab Facility Supplementary Attestation The total encounter time on this service date was 46 minutes which was spent performing a [id number] encounter and personally completing the provider-level activities documented in the note. This includes time spent prior to the visit and after the visit in direct care of the patient. This time does not include time spent in any separately reportable services. Jimenez Henao MD OFF WORKER * Nora Cardona, RD - 12/06/2023 12:49 PM CST Nutrition Screen Note Pt. Screened for nutritional assessment secondary to LOS Past Medical History: Diagnosis Date Allergic rhinitis Arthritis OA Cancer (CMS/HCC) (HCC) prostate and melonomia Cauda equina compression (HCC) DVT (deep venous thrombosis) (CMS/HCC) (HCC) Gastric reflux GERD (gastroesophageal reflux disease) History of melanoma Hypertension Kidney stone Personal history of prostate cancer Pneumonia Pulmonary embolism (HCC) Seasonal allergies Past Surgical History: Procedure Laterality Date FL UPPER GI AIR CONTRAST W KUB Left 09/21/2023 INSERT VENA CAVA FILTER N/A 11/09/2023 JOINT REPLACEMENT Right 2013 right knee replacement MELANOMA RESECTION Right 2005 right flank PERCUTANEOUS NEPHROSTOMY PCN LEFT Left 10/14/2023 PROSTATECTOMY 2009 REPLACEMENT TOTAL KNEE Left 10/17/2021 REVISION TOTAL KNEE ARTHROPLASTY Right 09/30/2019 VASECTOMY 30 years ago Anthropometrics Weight: 98.6 kg (217 lb 6 oz) Admission Weight : 81.6 kg Weight Change: 17.00 kg (37.47 lbs) IBW/kg (Calculated) : 69.9 kg Height: 172.7 cm (5' 8 ) Weight in (lb) to have BMI = 25: 164.1 BMI (Calculated): 33.1 Adult Malnutrition Scoring Tool (MST) What diet do you follow at home?: High Protien Have You Recently Lost Weight Without Trying?: No Have you been eating poorly because of a decreased appetite?: No Malnutrition Screening Tool (MST) Score: 0 Dietary Orders (From admission, onward) Start Ordered 12/05/231715 Adult Diet Regular Diet effective now Question: ([facility]) Diet type Answer: Regular 12/05/231714 Assessment / Impression: Met with patient at bedside he reported good appetite and Po intake. Said that he lost 8# over the course of last year when he was on Munjarno and during that time he had a decrease in his appetite. He reports being off Munjarno for the past few months prior to surgery. RD will continue to monitor. Nora Cardona MS, RD, [facility], LD Cell OFF WORKER * Joann Matthews, PT - 12/06/2023 11:20 AM CST Lymphedema Therapy Evaluation Note Subjective: Pt agreeable to Lymphedema Therapy assessment. Patient Observation: Patient found supine in bed, no apparent distress. Spouse present. History of Present Illness/Past Medical History: 73yoM with PMH Lumbar Disc Herniation s/p decompression surgery 10/2023 c/b cardiac arrest post-op and hematoma s/p evacuation (11/07/23) with resulting LE paralysis, DVT/PE s/p IVC filter (not on A/C currently), HTN, prediabetes presenting with DVT Past Medical History: Diagnosis Date Allergic rhinitis Arthritis OA Cancer (CMS/HCC) (HCC) prostate and melonomia Cauda equina compression (HCC) DVT (deep venous thrombosis) (CMS/HCC) (HCC) Gastric reflux GERD (gastroesophageal reflux disease) History of melanoma Hypertension Kidney stone Personal history of prostate cancer Pneumonia Pulmonary embolism (HCC) Seasonal allergies History of Edema: Pt reports edema began while at Rehab last week Prior Treatment for Edema: none. Contraindications/Precautions for treatment: DVTs, proximal edema Objective: 12/06/23 1120 General Session Type Re-Evaluation Session Type: Specialty Group Lymphedema Evaluation General Chart Reviewed Yes Pain Assessment Pain Assessment No/denies pain Lymphedema Lymphedema location Left;Right;LE;Trunk;Penis;Scrotum Penis Non-retracted Scrotum Baseball Pitting 3+ Skin Integrity Erythema;Hypohydrosis;Stemmer sign-positive;Squaring of toes;Shiny skin appearance;Impaired contour around bony prominences (scrotum - erythema) Area Temperature Normal Sensation Intact Recommendation Lymphedema Recommendation Skin care;Decongestive exercises;Lymphedema precautions Wounds: skin intact scrotum and B LE. Increased patchy erythema noted R anterior lower leg just proximal to ankle. No warmth noted, no drainage. Stage: II Treatment Provided: skin care - washed/lotion applied B LE, PROM B LE x10, positioning of scrotum with pillow case sling for increased elevation Compression: None this date. Education/Self Care: Educated patient and spouse on importance of proper skin care, LE elevation, and exercises. Pt and spouse verbalized understanding. Assessment/Prognosis: Pt presents this date with acute B LE edema which has extended proximally into scrotum and trunk. Per pt and spouse, edema has significantly improved since admission. Compression not initiated this date to B LE 2/2 concern for further mobilizing fluid proximally and increasing abdominal/scrotal edema and discomfort. Scrotal compression not initiated 2/2 subjective reports ofsignificant improvement as well as continued suprapubic edema which would limit effectiveness of securing bandage. POC discussed with patient and spouse who verbalized understanding. Lymphedema Recommendations: Maintain B LE elevation as able. Keep skin clean and apply lotion daily. *Advise against use of ELIAS wraps to B LE 2/2 high resting pressure which can cause skin integrity issues as well as concern for mobilizing fluid proximally* Frequency: 2-3x/wk Plan: initiate PT Lymphedema POC, reassess Sunday 12/10 to determine need for scrotal compression intervention. Refer to Vital signs flowsheet, Care plan activity and Education activity for additional documentation. If this is the last therapy visit, this serves as the discharge summary. Joann Matthews, PT 12/06/23 OFF WORKER * Cici Dill - 12/06/2023 9:55 AM CST Physical Therapy Progress Note NOTE: This is a summary note of the jones components of the treatment session. For full details, review chart for all flowsheets documented on by this physical therapy clinician on this date. Vital signs documented in vital signs flowsheet. Care plan progress documented in Care Plan Activity. For questions, please review the treatment team and contact the PT or AIRCONDITIONING ENGINEER currently assigned to this patient. If a physical therapy clinician is not assigned to this patient, please call [phone]. 12/06/23 0969 PT Last Visit Session Type Treatment PT Received On 12/06/23 Safe Environment Arm band checked;Patient found in supine;Gait belt utilized for all out of bed mobility Subjective Agreeable to Therapy Subjective Comment pt states he is unable to move his legs very much Family/Caregiver Present Yes () Current Functional Status PT Functional Mobility Therapeutic exercise, transfers, wc training, and skilled monitoring of v/s Precautions Precautions Spinal/Back;Fall risk;Seizure Weight Bearing Restrictions No Braces/Orthoses TLSO Precaution Comments verbally reviewed all precautions with pt Activity Tolerance Activity Tolerance Comments Bryson: hard Pain Assessment Pain Assessment No/denies pain Pain Score 0 - No pain Cognition Arousal/Alertness Alert;Appropriate responses to stimuli Current communication Appears Intact Orientation Oriented X4 (person, place, time, situation) Following Commands Follows all commands and directions without difficulty Compliance/Behavior Easy to engage Balance Balance Yes Static Sitting Balance Static Sitting-Balance Support Bilateral upper extremity supported Static Sitting-Sitting Surface Bed Static Sitting-Level of Assistance Moderate assistance Static Sitting-Comment/# of Minutes assistace provided to prevent LOB due to decreased trunk force production Bed Mobility Bed Mobility Yes Bed Mobility 1 Bed Mobility From 1 Rolling left Bed Mobility Type 1 To and from Bed Mobility to 1 Rolling right Level of Assistance 1 Moderate Assist;Minimal verbal cues (x2) Bed Mobility Comments 1 assistance provided due to decrease forced production for trunk elevation and UEs. Verbal cues prodvided for tecnique, hand seqencing, and following precautions. Bed Mobility 2 Bed Mobility From 2 Supine Bed Mobility Type 2 To Bed Mobility to 2 Edge of Bed Level of Assistance 2 Maximum Assist;Minimal verbal cues Bed Mobility Comments 2 assistance provided due to decrease forced production for trunk elevation, LE repositioning, and hip scooting. Verbal cues prodvided for tecnique, hand seqencing, and following precautions Transfers Transfer Yes Transfer 1 Transfer From 1 Bed Transfer Type 1 To Transfer to 1 Wheelchair Technique 1 Lateral with transfer board Transfer Device 1 Hand held assist;Other (comments) (sliding board) Transfer Level of Assistance 1 Moderate verbal cues;Maximum Assist (x2) Trials/Comments 1 assistance provided due to decreased force producion of LEs, prevent R , L and posterior LOB. Verbal cues provided for hand positioning tecnique and sequencing task Wheelchair Activities Level of Assistance for Pressure Relief Activities (CGA provided to prevent bumping into furniture/hwang) Propulsion Type 1 Manual Level 1 Level tile Method 1 Right upper extremity;Left upper extremity Level of Assistance 1 Minimum assistance Description/ Details 1 250 ft, CGA provided to prevent bumping into furniture/hwang Ambulation Functional Ambulation Category 0 Ambulation No RUE Assessment RUE Assessment WFL LUE Assessment LUE Assessment WFL RLE Assessment RLE Assessment X RLE Comments pt demonstraits almost no AROM LLE Assessment LLE Assessment X LLE Comments pt demonstraits almost no AROM Basic Mobility - 6 Click How much difficulty does the patient have: Turning over in bed 2 How much difficulty does the patient currently have: Sitting down and standing up from a chair witharms? 2 How much difficulty does the patient have: Moving from lying on back to sitting on the side of the bed? 2 How much difficulty does the patient have: Moving to and from a bed to a chair including wheelchair? 1 How much help does the patient currently need: Walk in hospital room? 1 How much help from another person does the patient currently need: Climbing 3-5 steps with a railing? 1 Total 6 Click Score (range 6-24) 9 Score Interpretation 25.80 Safe Environment End of Therapy Session Safe Environment End of Therapy Session Patient left supine in bed;Bed alarm in place and activated;RN notified;Call light within reach;Overbed table within reach Assessment Prognosis Fair Problem List Decreased strength;Decreased range of motion;Decreased endurance;Impaired balance;Decreased mobility;Edema Barriers to Discharge Current Mobility Status;Home environment challenged Plan Plan Continue with current plan;If this is the last note, consider this the discharge summary Recommendation/Plan PT Recommendation/Plan Inpatient Rehab Facility Patient at high risk for Falls;Readmission;Injury due to decreased ability to care for self;Injury due to reduced functional status;Injury due to balance deficits Recommend Inpatient Rehab/Acute Rehab due to Ability to actively participate in intensive therapy 3hours/day, 5 days/week or 900 minutes per week;Requires greater than 25% physical assistance with most mobility tasks;Requires greater than 25% physical assistance with most ADL tasks;Requires multiple therapy disciplines to address functional deficits;Patient and caregiver require specialized skilled training due to new level of function/diagnosis;Impaired ability to complete functional mobility;Not at baseline due to impaired ability to complete ADLs PT Frequency during current admission 5-7x/wk Treatment/Interventions during current admission Balance Training;Bed mobility;Endurance training;Functional activity;Functional transfer training;Wheelchair mobility/management;Strengthening;Range of motion Progress during current admission Slow progress, decreased activity tolerance PT - Next Appointment 12/07/23 Multi-Disciplinary Problems (from Physical Therapy) Active Problems Problem: Transfers Start Date: 11/30/23 Goal Start Date Expected End Date End Date LTG - Patient will transfer from one surface to another 11/30/23 12/28/23 -- Goal Details: With modified independence with a slideboard. Goal Start Date Expected End Date End Date STG - Transfer from bed to chair 11/30/23 12/14/23 -- Goal Details: With min assist using a slideboard. Goal Start Date Expected End Date End Date STG - Patient to transfer to and from sit to supine 11/30/23 12/14/23 -- Goal Details: With min assist using logroll technique. Problem: Balance Start Date: 11/30/23 Goal Start Date Expected End Date End Date STG - Maintains static sitting balance with upper extremity support 11/30/23 12/14/23 -- Goal Details: 5 minutes with supervision. Problem: Lymphedema Start Date: 12/06/23 Goal Start Date Expected End Date End Date STG - Patient will demonstrate understanding of skin care. 12/06/23 12/13/23 -- Goal Start Date Expected End Date End Date STG - Patient will demonstrate understanding of exercises and positioning for edema management. 12/06/23 12/13/23 -- Cosigned by Vijay Pickett, PT at 12/06/2023 5:52 PM BOIL OFF WORKER OFF WORKER OFF WORKER * Linda Honeycutt, [facility] - 12/05/2023 4:33 PM CST Pharmacist Home Medication Review The clinical lead pharmacy technician has completed a medication review with the patient, , fill history, and medication list from [facility] and has made the following edits to the home medication list: Medication additions - Insulin lispro - sliding scale - Pantoprazole Medication deletions - Mounjaro 10 mg/0.5 mg once weekly (was on previously, however not currently on at [facility]) - Omeprazole 20 mg daily Medication alterations - Changed gabapentin from 300 mg TID to 600 mg TID - Changed acetaminophen and senna-docusate to PRN Medication-related issues to be addressed: - Patient previously filled ketorolac 10 mg PO tablets on 11/06/23 and meloxicam 15 mg tablets on 08/28/23 - recommend to avoid due to bleed risk. - Patient was previously on enoxaparin, however was not taking immediately prior to admission per and [facility] medication list due to recent paraspinal hematoma. Home medications - following pharmacist reconciliation Medications Prior to Admission Medication Sig Dispense Refill Last Dose acetaminophen (TYLENOL) 500 mg tablet Take 2 tablets (1,000 mg total) by mouth every 6 (six) hours as needed for pain acyclovir (ZOVIRAX) 400 mg tablet Take 1 tablet (400 mg total) by mouth 2 (two) times a day 3 11/28/2023 bisacodyL (DULCOLAX) 10 mg suppository Insert 1 suppository (10 mg total) into the rectum daily 11/28/2023 cephalexin (KEFLEX) 500 mg capsule Take 1 capsule (500 mg total) by mouth daily as needed (30 minutes prior to dental appt) When pt has procedures gets pre antibiotic r/t history knee replacements More than a month cholecalciferol (VITAMIN D-3) 5,000 unit capsule Take 1 capsule (5,000 Units total) by mouth every morning 11/28/2023 cyclobenzaprine (FLEXERIL) 5 mg tablet Take 1 tablet (5 mg total) by mouth 3 (three) times a day asneeded for muscle spasms 90 tablet 0 11/28/2023 DILT-XR 240 mg 24 hr capsule Take 1 capsule (240 mg total) by mouth 2 (two) times a day 0 11/28/2023 gabapentin (NEURONTIN) 600 mg tablet Take 1 tablet (600 mg total) by mouth 3 (three) times a day insulin lispro (HumaLOG, ADMELOG) 100 unit/mL pen for injection Inject 0-3 Units under the skin 3 (three) times a day with meals levETIRAcetam (KEPPRA) 1,000 mg tablet Take 1 tablet (1,000 mg total) by mouth 2 (two) times a day 60 tablet 1 11/28/2023 loratadine (CLARITIN) 10 mg tablet Take 1 tablet (10 mg total) by mouth daily 11/28/2023 nitrofurantoin monohydrate (MACROBID) 100 mg capsule Take 1 capsule (100 mg total) by mouth 2 (two)times a day nystatin powder Apply 1 Application topically 2 (two) times a day pantoprazole DR (PROTONIX) 40 mg EC tablet Take 1 tablet (40 mg total) by mouth daily psyllium husk, with dextrose, 3.4 gram/ 6.5 gram powder Take 3.4 mg by mouth 2 (two) times a day senna-docusate (PERICOLACE) 8.6-50 mg Take 1 tablet by mouth 2 (two) times a day as needed for constipation tamsulosin (FLOMAX) 0.4 mg extended release capsule Take 2 capsules (0.8 mg total) by mouth daily with dinner 60 capsule 0 11/28/2023 traMADoL (ULTRAM) 50 mg tablet Take 1 tablet (50 mg total) by mouth every 4 (four) hours as needed for pain 42 tablet 11/28/2023 Allergies - following pharmacist reconciliation Patient has no known allergies. Linda Honeycutt, PharmD, BCPS Clinical Printing Machine Mechanic - Internal Medicine/Transitions of Care OFF WORKER * Jimenez Henao MD - 12/05/2023 3:55 PM CST Daily Progress Note Division of Hospital Medicine Name: Hira Evans : 1950 Today's Date: December 05, 2023 Age: 73 y.o. male Admission: 11/29/2023 Bed: [id number] LOS: 6 days Subjective Chief complaint: edema Interval History NAEON. VSS. Hgb stable. Started IV lasix 20 mg with good UOP though swelling has not changed from his estimation. Discussed case with orthopedic surgery, vascular surgery, and hematology after PM&R recs seen. At this point will transition to BID lovenox as hgb stable on therapeutic heparin gtt x72hr which isto continue as outpatient. Also given PM&R concerns about edema affecting ability to participate in care, will continue IV diuresis with BID dosing of lasix to help with volume overload. Surgical discussion with no plan for vascular intervention given unclear benefit and high risk procedure, sowill manage DVT burden with therapeutic AC as above. Objective Scheduled Meds PRN Meds Infusions acetaminophen, 1,000 mg, oral, Q6H acyclovir, 400 mg, oral, BID cholecalciferol, 5,000 Units, oral, QAM dilTIAZem XR, 240 mg, oral, BID enoxaparin, 1 mg/kg, subcutaneous, Q12H CAMMY furosemide, 20 mg, intravenous, BID DIURETIC gabapentin, 600 mg, oral, TID levETIRAcetam, 1,000 mg, oral, BID miconazole, , topical, BID pantoprazole DR, 40 mg, oral, Daily senna-docusate, 1 tablet, oral, Nightly sulfamethoxazole-trimethoprim, 160 mg of trimethoprim, oral, BID tamsulosin, 0.8 mg, oral, Daily with dinner bisacodyL, 10 mg, rectal, Daily PRN cyclobenzaprine, 5 mg, oral, TID PRN ondansetron ODT, 4 mg, oral, Q6H PRN OR ondansetron, 4 mg, intravenous, Q6H PRN oxyCODONE, 5 mg, oral, Q4H PRN ramelteon, 8 mg, oral, Nightly PRN traZODone, 50 mg, oral, Nightly PRN Vitals Most Recent Vitals: T 36.7 ??C (98.1 ??F), HR 64, BP 107/67, RR 16, SpO2 99 %. 24hr Min/Max: Temp Min: 36.6 ??C (97.9 ??F) Max: 37 ??C (98.6 ??F) Pulse Min: 58 Max: 72 BP Min: 102/62 Max: 126/72 Resp Min: 16 Max: 18 SpO2 Min: 96 % Max: 100 % Intake/Output Summary (Last 24 hours) at 12/05/2023 1555 Last data filed at 12/05/2023 1045 Gross per 24 hour Intake 1285.38 ml Output 2675 ml Net -1389.62 ml Physical Exam Vitals and nursing note reviewed. Constitutional: General: He is not in acute distress. HENT: Head: Normocephalic and atraumatic. Eyes: General: No scleral icterus. Cardiovascular: Rate and Rhythm: Normal rate and regular rhythm. Pulmonary: Effort: Pulmonary effort is normal. Breath sounds: Normal breath sounds. Abdominal: Tenderness: There is no abdominal tenderness. Musculoskeletal: Comments: Pitting edema to level of umbilicus bilaterally Neurological: Mental Status: He is alert. Comments: Conversant, moves BUE spontaneously. Has movement in toes and ankle on RLE, just toes LLE. Lines, Drains, Airways Peripheral IV 11/29/23 20 G Distal;Posterior;Right Forearm (Active) Peripheral IV 12/02/23 20 G Distal;Left;Posterior Forearm (Active) Urethral Catheter (Active) Labs/Diagnostic Review Na 138 Cl 107 BUN 22 K 3.8 CO2 23 Cr 1.00 Mg 1.9, G AST 48 ALT 52 Alk Phos 156 Ca 8.5 TP - Alb 2.8 Total Bili: 0.2 Direct Bili: <0.2 \ Hgb 8.7 / WBC 6.1 -------- Plt 338 / MCV 93.2 \ INR - (Labs above are the most recent result obtained in the last 24 hours. For additional labs/trends, see Epic.) I have reviewed the laboratory results. Imaging Review No results found. Assessment/Plan Prediabetes Assessment & Plan - Was on mounjaro as outpatient - has required intermittent SSI at [facility] - Diabetic diet, SSI ordered Seizure (HCC) Assessment & Plan - Patient developed reported seizure on 12/19 during or prior to cardiac arrest with bilateral SDH noted on imaging - placed on keppra through follow-up with NSGY next month Scrotal swelling Assessment & Plan - In setting of presumed DVT - no evidence of infection on exam - Scrotal Sling - Maintain harris catheter - DVT mgt per above - for edema, will continue IV lasix 20 mg BID, monitor electrolytes Lower extremity edema Assessment & Plan - Eval/mgt per above. NT-proBNP 105. Elevated transaminase level Assessment & Plan - AST 65, ALT 80, new on arrival- Unclear etiology at this time - possibly from IVC compression/distention in setting of potential thrombi? - Improving - will hold off on further imaging Hyponatremia Assessment & Plan - Na low 130s over the past week - Check Sosm, Uosm, Stephanie - CTM Paraspinal hematoma Assessment & Plan - Occurred on therapeutic anticoagulation in setting of recent lumbar decompression, with subsequent LE paralysis and emergent hematoma evacuation on 11/07 - Directly-admitted from [facility] - PT/OT - Orthopedics following - had sutures removed on 11/30 - note had some drainage from sutures, plan 7-10d course SSTI antibiotics using Bactrim for now - anticoagulation as elsewhere (see DVT ) Anemia Assessment & Plan - Stable Hgb ~8 - Maintain Hgb > 7 Paralysis of both lower limbs (CMS/HCC) ([facility]) Assessment & Plan - Patient with paralysis of LE following recent spinal hematoma s/p emergent evacuation on 11/07 - Ongoing 11/09 strength of LE, sensation intact - Fall precautions Pulmonary embolism (HCC) Assessment & Plan - Eval/mgt per above UTI (urinary tract infection) Assessment & Plan - Patient diagnosed with UTI in setting of harris catheter on 11/21 with growth of Enterobacter cloacae (S - bactrim, macrobid, cefepime) - he denies symptoms, though was noted to have leukocytosis that has improved - Continue antibiotics at this time: bactrim Hydronephrosis with urinary obstruction due to renal calculus Assessment & Plan - Patient with noted progressed hydronephrosis during CT this month in setting of ureteral stones - No urinary retention or abd/back pain at this time - urology consulted, appreciate recommendations - repeat UA w/ reflex from 11/30 without evidence of clinically significant infection - has been on Macrobid, stopped in favor of Bactrim to also cover SSTI of back Prostate cancer (HCC) Assessment & Plan - s/p prostatectomy HTN (hypertension) Assessment & Plan - Cont diltiazem - home ARB has been on hold at [facility] - continue to hold here initially * DVT (deep venous thrombosis) (CMS/HCC) (HCC) Assessment & Plan Patient with complex history with cardiac arrest [...] for support, q4 neurochecks, neurovascular checks - start Lovenox 1mg/kg BID, stop heparin gtt - Patient and counseled on warning symptoms for bleeding; currently hgb stable - Transfused 1 unit PRBCs (12/02) w/ appropriate rise - Monitor CBC on anticoagulation - for BLE edema, trial IV lasix 20 mg BID with close monitoring of electrolytes Code status : Full Code Diet : Adult Diet Restricted; Consistent Carbohydrate PT/OT Dispo Rec : PT Recommendation/Plan: Inpatient Rehab Facility / OT Recommendation: Inpatient Rehab Facility Supplementary Attestation The total encounter time on this service date was 52 minutes which was spent performing a [id number] encounter and personally completing the provider-level activities documented in the note. This includes time spent prior to the visit and after the visit in direct care of the patient. This time does not include time spent in any separately reportable services. Jimenez Henao MD OFF WORKER * Giovanna Cazares MD - 12/05/2023 10:52 AM CST Brief Vascular Surgery Consult Update Note Called by primary team regarding final recommendations prior to patient discharge: - Continue therapeutic anticoagulation, can transition to DOAC or other oral anticoagulation - Recommended lower extremity compression wraps bilaterally to help with swelling - using 4 inch ELIAS wraps have nursing or therapy wrap from foot to upper thigh and elevate bilateral lower extremities - No need for scheduled vascular surgery follow up. Please contact the Vascular Surgery Inpatient Consult Service at the number listed below with any further questions or concerns regarding this patient. Giovanna Cazares MD Vascular Consult Vascular Inpatient Floor [facility] Cosigned by Marcial Barron MD at 12/11/2023 7:10 AM BOIL OFF WORKER OFF WORKER OFF WORKER * Zehra Cook MD - 12/05/2023 9:04 AM CST Orthopaedic Spine Service Daily Progress Note Admit Date: 11/29/2023 Hospital Day: 6 [facility] Dx: BLE DVTs -- consult for guidance w/ anticoagulation Relevant PMHx: postop cardiac arrest and b/l PE s/p therapeutic anticoagulation c/b hematoma and cauda equina s/p decompression 11/08/23, prostate CA s/p prostatectomy, GERD, obesity, CKD, UTI, melanoma Plan: Ongoing discussion with heme/ortho spine/hospitalist w/ plan for possible hep gtt starting 11/30 Procedure(s): 10/23/23: L4-L5 decompression, TLIF, PSF 11/08/23: T5-L5 laminectomies w/hematoma evacuation and lumbar dural repair Interval History: NAEON. AFVSS. 8.7/27.6, WBC: 6.1, Cr: 1.00. On heparin drip - Hgb has responded appropriately (stable at 8.7) BLE at baseline - no bleeding/bruising, will transition to lovenox today. Denies back pain. Neuro exam at baseline - BLE edema present. Plan: PM&R saw pt, recommend return to inpatient spinal cord injury rehab. Pt now pending placement (will likely go today or tomorrow). Ok for returnto I[facility] per ortho spine. Edited by: Zehra Cook MD at 12/05/2023 0902 Objective Vitals: 24hr Min/Max: Temp Min: 36.7 ??C (98.1 ??F) Max: 37 ??C (98.6 ??F) Pulse Min: 56 Max: 72 BP Min: 106/62 Max: 126/72 Resp Min: 16 Max: 18 SpO2 Min: 96 % Max: 100 % I/O last 2 completed shifts: In: 2835.4 [P.O.:2470; I.V.:365.4] Out: 2725 [Urine:2725] No intake/output data recorded. Physical Exam: Bilateral lower extremity edema 1/5 strength of the left EHL, 1/5 strength of the right tibialis anterior, and 2/5 strength of the right EHL and gastroc; otherwise, 0/5 strength throughout bilateral lower extremities Sensation intact to light touch BLE/BUE Lab/Diagnostic Review: Recent Labs Lab Units 12/05/23 0759 12/05/23 0506 12/04/23 2343 11/30/23 0751 11/30/23 0012 SODIUM mmol/L -- -- 138 < > 132* POTASSIUM PLASMA mmol/L -- -- 3.8 < > 4.7 CHLORIDE mmol/L -- -- 107 < > 98 CO2 mmol/L -- -- 23 < > 22 ANIONGAP mmol/L -- -- 8 < > 12 GLUCOSE mg/dL -- -- 94 < > 106 POC GLUCOSE MONITOR mg/dL 156 -- -- < > -- BUN SERUM mg/dL -- -- 22 < > 27* CREATININE mg/dL -- -- 1.00 < > 0.86 CALCIUM mg/dL -- -- 8.5 < > 8.6 ALBUMIN g/dL -- -- 2.8* < > 2.7* ALK PHOS Units/L -- -- 156* < > 140* ALT Units/L -- -- 52 < > 77* AST Units/L -- -- 48 < > 61* BILIRUBIN TOTAL mg/dL -- -- 0.2 < > 0.2 WBC K/cumm -- -- 6.1 < > 6.2 HEMOGLOBIN g/dL -- -- 8.7* < > 7.3* HEMATOCRIT % -- -- 27.6* < > 22.5* PLATELETS K/cumm -- -- 338 < > 158 NEUTROS PCT % -- -- 63.2 < > 69.7 LYMPHS PCT % -- -- 22.4 < > 17.1 MONOS PCT % -- -- 7.4 < > 6.8 EOS PCT % -- -- 5.2 < > 5.2 APTT sec -- 81* -- < > -- INR -- -- -- -- 1.04 < > = values in this interval not displayed. Micro: Lab Results Component Value Date MICROBIOLOGY 11/30/2023 Final Report: Less than 100,000 colonies/mL (clinically insignificant growth based on current clinical standards) MICROBIOLOGY (.) 11/21/2023 Final Report: Greater than or equal to 100,000 colonies/mL of Enterobacter cloacae complex MICROBIOLOGY Final Report: No growth 10/14/2023 MICROBIOLOGY Final Report: No growth 10/13/2023 MICROBIOLOGY Final Report: No growth 10/13/2023 MICROBIOLOGY Final Report: No growth 10/12/2023 MICROBIOLOGY Final Report: No growth 10/12/2023 MICROBIOLOGY (.) 10/12/2023 Final Report: Greater than or equal to 100,000 colonies/mL of Escherichia coli Greater than or equal to 100,000 colonies/mL of Escherichia coli #2 For susceptibility results, refer to accession number [id number] on the urine culture from 10/11/23 MICROBIOLOGY (.) 10/11/2023 Final Report: Greater than or equal to 100,000 colonies/mL of Escherichia coli Greater than or equal to 100,000 colonies/mL of Escherichia coli #2 MICROBIOLOGY 03/15/2023 Final Report: Less than 100,000 colonies/mL (clinically insignificant growth based on current clinical standards) MICROBIOLOGY Final Report: No growth 09/24/2019 Plan Ok to transition from heparin drip to lovenox Off the shelf TLSO when out of bed Q4 neuro checks Continue abx for 10 days for cellulitis at proximal drain site Ortho will continue to follow while patient is in house Ok to dc back to I[facility] spine from ortho standpoint Edited by: Hayden Youngblood MD at 11/29/20232020 Please call with questions during daytime. See below for overnight issues. If you know the resident's name on the appropriate orthopaedic surgery team, please use [email or web address] to page resident directly. If questions arise and the appropriate resident can't be reached or you are calling overnight, please contact [phone] ([place]- 7:30 PM - 6:30 AM - Floor Resident) or [phone] (24 hours/day - Consult Resident) Cosigned by Marcial Vu MD at 12/05/2023 12:11 PM BOIL OFF WORKER OFF WORKER OFF WORKER Associated attestation - Marcial Vu Jr., MD - 12/05/2023 12:11 PM BOIL OFF WORKER Attending Attestation I have seen and examined the patient on 12/05/23 in the Hospital. I personally saw Mr. Evans at the bedside in the hospital this morning. He remains on the Medicine service on heparin drip. Received 1 unit of packed red blood cells on 12/02/2023 with appropriate rise in hemoglobin. Hemoglobin is currently stable at 8.7. He has been working with PT and OT. PM&R saw him yesterday and recommend that he continue to work with PT/OT/FLAT FOLDER and eventually return toinpatient spinal cord injury rehab after discharge. On exam, he is afebrile with stable vital signs. I removed the spine dressings and they were all clean, dry, and intact. His incisions are well healed without any erythema, warmth, fluctuance, drainage, or any other signs of infection or wound compromise. He is able to wiggle his toes bilaterally and has slight dorsiflexion and plantar flexion through the right ankle. He has intact sensation to light touch throughout bilateral feet and lower extremities. Bilateral lower extremities are warm andwell-perfused. He has significant bilateral lower extremity swelling with extends proximally to include the scrotum up to the abdomen. I discussed his case with the Vascular Surgery team who do not feel that his DVTs are limb threatening and do not recommend surgery for the DVTs. They recommend lower extremity compression and scrotal elevation to help with the swelling. He will also receive Lasix in an attempt to improve the lowerextremity swelling. Recommend PT/OT. He will continue on heparin drip and will be transitioned to Lovenox. He should continue to receive oral antibiotics for a total of 7 days. We will continue to follow. I discussed his situation and the current plan with Mr. Evans and [facility] , [facility] and also with his son, Marcial, over the phone. All are understanding and in agreement. Marcial Vu Jr., MD Learning Solutions Specialist Department of Orthopaedic Surgery Division of Spine Surgery [facility] [employer] [place], [place] [employer] done by [employer]; therefore, variances and inaccuracies may occur. * Marcial Vu MD - 12/05/2023 8:56 AM CST I personally saw Mr. Evans at the bedside in the hospital this morning. He remains on the Medicine service on heparin drip. Received 1 unit of packed red blood cells on 12/02/2023 with appropriate rise in hemoglobin. Hemoglobin is currently stable at 8.7. He has been working with PT and OT. PM&R saw him yesterday and recommend that he continue to work with PT/OT/FLAT FOLDER and eventually return toinpatient spinal cord injury rehab after discharge. On exam, he is afebrile with stable vital signs. I removed the spine dressings and they were all clean, dry, and intact. His incisions are well healed without any erythema, warmth, fluctuance, drainage, or any other signs of infection or wound compromise. He is able to wiggle his toes bilaterally and has slight dorsiflexion and plantar flexion through the right ankle. He has intact sensation to light touch throughout bilateral feet and lower extremities. Bilateral lower extremities are warm andwell-perfused. He has significant bilateral lower extremity swelling with extends proximally to include the scrotum up to the abdomen. I discussed his case with the Vascular Surgery team who do not feel that his DVTs are limb threatening and do not recommend surgery for the DVTs. They recommend lower extremity compression and scrotal elevation to help with the swelling. He will also receive Lasix in an attempt to improve the lowerextremity swelling. Recommend PT/OT. He will continue on heparin drip and will be transitioned to Lovenox. He should continue to receive oral antibiotics for a total of 7 days. We will continue to follow. I discussed his situation and the current plan with Mr. Evans and his , Val, [facility] and also with his son, Marcial, over the phone. All are understanding and in agreement. Marcial Vu Jr., MD Learning Solutions Specialist Department of Orthopaedic Surgery Division of Spine Surgery [facility] [place], [place] OFF WORKER * Jagruti Earl, PT - 12/05/2023 8:45 AM CST Physical Therapy 12/05/23 0845 PT Last Visit Session Type Treatment PT Received On 12/05/23 Safe Environment Arm band checked;Patient found in supine;Session completed bedside;Gait belt not utilized, see comment Subjective Agreeable to Therapy Subjective Comment My legs are very swollen up to my waist. My scrotum is too Family/Caregiver Present No Precautions Precautions Fall risk;Spinal/Back Braces/Orthoses TLSO (Aubrey boots re- applied at end of session) Precaution Comments Reviewed log roll technique prior to mobility. Pt verbalized understanding and requires mod verbal cues to follow Activity Tolerance Activity Tolerance Comments bryson- hard Pain Assessment Pain Assessment No/denies pain Cognition Orientation Oriented X4 (person, place, time, situation) Balance Balance Yes Static Sitting Balance Static Sitting-Balance Support Bilateral upper extremity supported Static Sitting-Sitting Surface Bed Static Sitting-Level of Assistance Maximum assistance (x 2) Static Sitting-Comment/# of Minutes max assist x 2 for balance, safety. Pt has posterior lean Supine Supine-Exercises Bilateral;Lower extremity Reps/Sets 10/1 Supine-Motion PROM Supine-Exercise Comments SLR, hip flexion, hip abd/add, PF/DF Bed Mobility Bed Mobility Yes Bed Mobility 1 Bed Mobility From 1 Supine (x 4) Bed Mobility Type 1 To and from Bed Mobility to 1 Rolling right;Rolling left Level of Assistance 1 Maximum Assist Bed Mobility Comments 1 max assist with force production, reaching for railing Bed Mobility 2 Bed Mobility From 2 Supine Bed Mobility Type 2 To and from Bed Mobility to 2 Edge of Bed Level of Assistance 2 Maximum Assist (2) Bed Mobility Comments 2 max assist x 2 with force production, trunk elevation, BLE management, balance and safety. Pt unable to come to complete EOB position due to posterior lean of trunk. Attempted2 x. Transfers Transfer No Basic Mobility - 6 Click How much difficulty does the patient have: Turning over in bed 2 How much difficulty does the patient currently have: Sitting down and standing up from a chair witharms? 1 How much difficulty does the patient have: Moving from lying on back to sitting on the side of the bed? 2 How much difficulty does the patient have: Moving to and from a bed to a chair including wheelchair? 1 How much help does the patient currently need: Walk in hospital room? 1 How much help from another person does the patient currently need: Climbing 3-5 steps with a railing? 1 Total 6 Click Score (range 6-24) 8 Score Interpretation 22.61 Safe Environment End of Therapy Session Safe Environment End of Therapy Session RN notified;Call light within reach;Overbed table within reach;Bed in lowest position with wheels locked;Bed rails up per protocol (Pt left in L sidelying position with wedge for back support and pillows between legs. Aubrey boots in place bialterally) Assessment Prognosis Fair Barriers to Discharge Current Mobility Status;Decreased caregiver support Plan Plan Continue with current plan;If this is the last note, consider this the discharge summary Recommendation/Plan PT Recommendation/Plan Inpatient Rehab Facility Recommend Inpatient Rehab/Acute Rehab due to Ability to actively participate in intensive therapy 3hours/day, 5 days/week or 900 minutes per week;Highly motivated to participate in therapy;Not at baseline due to impaired ability to complete ADLs;Impaired ability to complete functional mobility;Likely to return to the community at discharge with support system in place;Requires greater than 25% physical assistance with most mobility tasks;Requires greater than 25% physical assistance with most ADL tasks;Requires multiple therapy disciplines to address functional deficits;Patient and caregiverrequire specialized skilled training due to new level of function/diagnosis;Requires skilled therapy interventions to address neurological deficits PT Frequency during current admission 5-7x/wk Treatment/Interventions during current admission Balance Training;Bed mobility;Functional activity;Functional transfer training;Positioning;Neuromuscular re-education;Range of motion;Parent/caregiver training and education;Strengthening;Therapeutic activity;Therapeutic exercise;Transfer training Progress during current admission No functional improvements PT - Next Appointment 12/06/23 PT - OK to Discharge Yes (to another facility) PT Evaluation Complete Yes Physical Therapy Progress Note NOTE: This is a summary note of the jones components of the treatment session. For full details, review chart for all flowsheets documented on by this physical therapy clinician on this date. Vital signs documented in vital signs flowsheet. Care plan progress documented in Care Plan Activity. For questions, please review the treatment team and contact the PT or AIRCONDITIONING ENGINEER currently assigned to this patient. If a physical therapy clinician is not assigned to this patient, please call [phone]. Multi-Disciplinary Problems (from Physical Therapy) Active Problems Problem: Transfers Start Date: 11/30/23 Goal Start Date Expected End Date End Date LTG - Patient will transfer from one surface to another 11/30/23 12/28/23 -- Goal Details: With modified independence with a slideboard. Goal Start Date Expected End Date End Date STG - Transfer from bed to chair 11/30/23 12/14/23 -- Goal Details: With min assist using a slideboard. Goal Start Date Expected End Date End Date STG - Patient to transfer to and from sit to supine 11/30/23 12/14/23 -- Goal Details: With min assist using logroll technique. Problem: Balance Start Date: 11/30/23 Goal Start Date Expected End Date End Date STG - Maintains static sitting balance with upper extremity support 11/30/23 12/14/23 -- Goal Details: 5 minutes with supervision. OFF WORKER * Jimenez Henao MD - 12/04/2023 3:29 PM CST Daily Progress Note Division of Hospital Medicine Name: Hira Evans : 1950 Today's Date: December 04, 2023 Age: 73 y.o. male Admission: 11/29/2023 Bed: [id number] LOS: 5 days Subjective Chief complaint: edema Interval History NAEON. VSS. Hgb stable 8.7 overnight. No evidence of bleeding. States his main complaint is his marked BLE/scrotal/abdominal wall edema. Worked with PT/OT with patient moving to edge of bed but stillremains very weak overall. Discussed with patient that extensive clot burden is likely the primary independent driver of symptoms though will evaluate other etiologies especially as patient does have history of diastolic dysfunction on TTE. Objective Scheduled Meds PRN Meds Infusions acetaminophen, 1,000 mg, oral, Q6H acyclovir, 400 mg, oral, BID cholecalciferol, 5,000 Units, oral, QAM dilTIAZem XR, 240 mg, oral, BID gabapentin, 600 mg, oral, TID insulin lispro, 0-4 Units, subcutaneous, Nightly insulin lispro, 0-5 Units, subcutaneous, TID with meals levETIRAcetam, 1,000 mg, oral, BID miconazole, , topical, BID pantoprazole DR, 40 mg, oral, Daily senna-docusate, 1 tablet, oral, Nightly sulfamethoxazole-trimethoprim, 160 mg of trimethoprim, oral, BID tamsulosin, 0.8 mg, oral, Daily with dinner bisacodyL, 10 mg, rectal, Daily PRN cyclobenzaprine, 5 mg, oral, TID PRN dextrose, 15 g, oral, Q15 Min PRN OR dextrose, 250 mL, intravenous, Q15 Min PRN glucagon, 1 mg, intramuscular, Q30 Min PRN heparin, 2,000 Units, intravenous, Q6H PRN OR heparin, 3,000 Units, intravenous, Q6H PRN ondansetron ODT, 4 mg, oral, Q6H PRN OR ondansetron, 4 mg, intravenous, Q6H PRN oxyCODONE, 5 mg, oral, Q4H PRN ramelteon, 8 mg, oral, Nightly PRN traZODone, 50 mg, oral, Nightly PRN heparin, 0-33 Units/kg/hr, Last Rate: 23 Units/kg/hr (12/04/23 0709) Vitals Most Recent Vitals: T 36.8 ??C (98.2 ??F), HR 56, BP 110/66, RR 18, SpO2 100 %. 24hr Min/Max: Temp Min: 36.4 ??C (97.5 ??F) Max: 37.1 ??C (98.8 ??F) Pulse Min: 56 Max: 70 BP Min: 106/62 Max: 128/73 Resp Min: 16 Max: 18 SpO2 Min: 95 % Max: 100 % Intake/Output Summary (Last 24 hours) at 12/04/2023 1529 Last data filed at 12/04/2023 1445 Gross per 24 hour Intake 1970 ml Output 1800 ml Net 170 ml Physical Exam Vitals and nursing note reviewed. Constitutional: General: He is not in acute distress. HENT: Head: Normocephalic and atraumatic. Eyes: General: No scleral icterus. Cardiovascular: Rate and Rhythm: Normal rate and regular rhythm. Pulmonary: Effort: Pulmonary effort is normal. Breath sounds: Normal breath sounds. Abdominal: Tenderness: There is no abdominal tenderness. Musculoskeletal: Comments: Pitting edema to level of umbilicus bilaterally Neurological: Mental Status: He is alert. Comments: Conversant, moves BUE spontaneously. Has movement in toes and ankle on RLE, just toes LLE. Lines, Drains, Airways Peripheral IV 11/29/23 20 G Distal;Posterior;Right Forearm (Active) Peripheral IV 12/02/23 20 G Distal;Left;Posterior Forearm (Active) Urethral Catheter (Active) External Urinary Catheter (Active) Labs/Diagnostic Review Na 134 Cl 103 BUN 23 K 4.4 CO2 23 Cr 0.91 Mg 2.0, G AST 43 ALT 44 Alk Phos 160 Ca 8.5 TP - Alb 2.9 Total Bili: 0.2 Direct Bili: <0.2 \ Hgb 8.7 / WBC 5.4 -------- Plt 302 / MCV 91.1 \ INR - (Labs above are the most recent result obtained in the last 24 hours. For additional labs/trends, see Epic.) I have reviewed the laboratory results. Imaging Review No results found. Assessment/Plan Prediabetes Assessment & Plan - Was on mounjaro as outpatient - has required intermittent SSI at [facility] - Diabetic diet, SSI ordered Seizure (HCC) Assessment & Plan - Patient developed reported seizure on 10/23 during or prior to cardiac arrest with bilateral SDH noted on imaging - placed on keppra through follow-up with NSGY next month Scrotal swelling Assessment & Plan - In setting of presumed DVT - no evidence of infection on exam - Scrotal Sling - Maintain harris catheter - DVT mgt per above Lower extremity edema Assessment & Plan - Eval/mgt per above. NT-proBNP 105. Elevated transaminase level Assessment & Plan - AST 65, ALT 80, new on arrival- Unclear etiology at this time - possibly from IVC compression/distention in setting of potential thrombi? - Improving - will hold off on further imaging Hyponatremia Assessment & Plan - Na low 130s over the past week - Check Sosm, Uosm, Stephanie - CTM Paraspinal hematoma Assessment & Plan - Occurred on therapeutic anticoagulation in setting of recent lumbar decompression, with subsequent LE paralysis and emergent hematoma evacuation on 11/07 - Directly-admitted from [facility] - PT/OT - Orthopedics following - had sutures removed on 11/30 - note had some drainage from sutures, plan 7-10d course SSTI antibiotics using Bactrim for now - anticoagulation as elsewhere (see DVT ) Anemia Assessment & Plan - Stable Hgb ~8 - Maintain Hgb > 7 Paralysis of both lower limbs ([facility]) ([facility]) Assessment & Plan - Patient with paralysis of LE following recent spinal hematoma s/p emergent evacuation on 11/07 - Ongoing 11/09 strength of LE, sensation intact - Fall precautions Pulmonary embolism ([facility]) Assessment & Plan - Eval/mgt per above UTI (urinary tract infection) Assessment & Plan - Patient diagnosed with UTI in setting of harris catheter on 11/21 with growth of Enterobacter cloacae (S - bactrim, macrobid, cefepime) - he denies symptoms, though was noted to have leukocytosis that has improved - Continue antibiotics at this time: bactrim Hydronephrosis with urinary obstruction due to renal calculus Assessment & Plan - Patient with noted progressed hydronephrosis during CT this month in setting of ureteral stones - No urinary retention or abd/back pain at this time - urology consulted, appreciate recommendations - repeat UA w/ reflex from 11/30 without evidence of clinically significant infection - has been on Macrobid, stopped in favor of Bactrim to also cover SSTI of back Prostate cancer ([facility]) Assessment & Plan - s/p prostatectomy HTN (hypertension) Assessment & Plan - Cont diltiazem - home ARB has been on hold at [facility] - continue to hold here initially * DVT (deep venous thrombosis) (CMS/HCC) ([facility]) Assessment & Plan Patient with complex history with cardiac arrest [...] c/s: no plan for operative management, continue anticoagulation - Hematology consult: continue heparin gtt and can transition to lovenox BID prior to discharge - Scrotal sling for support, q4 neurochecks, neurovascular checks - continue heparin drip w/o initial bolus - Patient and counseled on warning symptoms for bleeding; currently hgb stable 8.5 -> 8.7 - Transfused 1 unit PRBCs (12/02) w/ appropriate rise - Monitor CBC on anticoagulation Code status : Full Code Diet : Adult Diet Restricted; Consistent Carbohydrate PT/OT Dispo Rec : PT Recommendation/Plan: Inpatient Rehab Facility / OT Recommendation: Inpatient Rehab Facility Supplementary Attestation The total encounter time on this service date was 47 minutes which was spent performing a [id number]-[id number] encounter and personally completing the provider-level activities documented in the note. This includes time spent prior to the visit and after the visit in direct care of the patient. This time does not include time spent in any separately reportable services. Jimenez Henao MD OFF WORKER * Maria T Woodruff, PT - 12/04/2023 2:50 PM CST Physical Therapy Physical Therapy Progress Note NOTE: This is a summary note of the jones components of the treatment session. For full details, review chart for all flowsheets documented on by this physical therapy clinician on this date. Vital signs documented in vital signs flowsheet. Care plan progress documented in Care Plan Activity. For questions, please review the treatment team and contact the PT or AIRCONDITIONING ENGINEER currently assigned to this patient. If a physical therapy clinician is not assigned to this patient, please call [phone]. 12/04/23 1408 PT Last Visit Session Type Treatment PT Received On 12/04/23 Safe Environment Arm band checked;Patient found in supine;Session completed bedside;Gait belt not utilized, see comment (no OOB) Subjective Agreeable to Therapy Family/Caregiver Present Yes ( walked in at the end of session) Precautions Precautions Fall risk;Spinal/Back Pain Assessment Pain Assessment No/denies pain Cognition Arousal/Alertness Alert;Appropriate responses to stimuli Orientation Oriented X4 (person, place, time, situation) Following Commands Follows all commands and directions without difficulty Safety Judgment Decreased awareness of need for safety Compliance/Behavior Easy to engage Static Sitting Balance Static Sitting-Balance Support Bilateral upper extremity supported;Right upper extremity supported;Feet supported Static Sitting-Sitting Surface Bed Static Sitting-Level of Assistance Moderate assistance;Contact guard Static Sitting-Comment/# of Minutes iniitally mod assist, progressed to cga with 8 min total at EOB Dynamic Sitting Balance Dynamic Sitting-Balance Support Bilateral upper extremity supported;Unilateral upper extremity supported;Feet supported Dynamic Sitting-Balance Lateral lean;Forward lean;Head control activities (Comment);Trunk control activities Dynamic Sitting-Sitting Surface Bed Dynamic Sitting-Level of Assistance Minimum assistance;Moderate assistance Dynamic Sitting-Comments assist for balance, rpevent LOB Bed Mobility 1 Bed Mobility From 1 Supine Bed Mobility Type 1 To and from Bed Mobility to 1 Rolling right;Rolling left Level of Assistance 1 Moderate Assist Bed Mobility Comments 1 assist for reachign for rialing, rolling to the side Bed Mobility 2 Bed Mobility From 2 Supine Bed Mobility Type 2 To and from Bed Mobility to 2 Edge of Bed Level of Assistance 2 Maximum Assist Bed Mobility Comments 2 logroll to the eob, assist for LEs, scooting to the EOB, trunk elevation Transfers Transfer No Ambulation Ambulation No Basic Mobility - 6 Click How much difficulty does the patient have: Turning over in bed 2 How much difficulty does the patient currently have: Sitting down and standing up from a chair witharms? 1 How much difficulty does the patient have: Moving from lying on back to sitting on the side of the bed? 2 How much difficulty does the patient have: Moving to and from a bed to a chair including wheelchair? 1 How much help does the patient currently need: Walk in hospital room? 1 How much help from another person does the patient currently need: Climbing 3-5 steps with a railing? 1 Total 6 Click Score (range 6-24) 8 Safe Environment End of Therapy Session Safe Environment End of Therapy Session Patient left supine in bed;RN notified;Call light within reach;Overbed table within reach;Bed in lowest position with wheels locked;Bed rails up per protocol Assessment Prognosis Fair Problem List Decreased strength;Decreased range of motion;Decreased endurance;Impaired balance;Decreased mobility;Impaired judgement;Decreased safety awareness;Decreased skin integrity;Pain;Edema Barriers to Discharge Current Mobility Status;Decreased caregiver support;Decreased safety awareness Plan Plan Continue with current plan;If this is the last note, consider this the discharge summary Recommendation/Plan PT Recommendation/Plan Inpatient Rehab Facility Patient at high risk for Readmission;Falls;Injury due to decreased ability to care for self;Injury due to reduced functional status;Injury due to impaired cognition;Injury due to balance deficits;Injury at home as patient has not returned to prior level of function;Developing impaired skin integrity;Cognitive decline due to decreased social participation;Mismanagement of medications;Prolonged dependence for self care tasks Recommend Inpatient Rehab/Acute Rehab due to Ability to actively participate in intensive therapy 3hours/day, 5 days/week or 900 minutes per week;Highly motivated to participate in therapy;Not at baseline due to impaired ability to complete ADLs;Impaired ability to complete functional mobility;Likely to return to the community at discharge with support system in place;Requires greater than 25% physical assistance with most mobility tasks;Requires greater than 25% physical assistance with most ADL tasks;Patient and caregiver require specialized skilled training due to new level of function/diagnosis;Requires multiple therapy disciplines to address functional deficits;Requires skilled therapy interventions to address neurological deficits PT Frequency during current admission 5-7x/wk Treatment/Interventions during current admission Balance Training;Bed mobility;Endurance training;Functional activity;Functional transfer training;Gait training;Neuromuscular re-education;Parent/caregiver training and education;Positioning;Range of motion;Stair training;Strengthening;Therapeutic exercise;Therapeutic activity;Transfer training Progress during current admission Progressing toward goals PT - Next Appointment 12/05/23 PT - OK to Discharge Yes (to a facility) Multi-Disciplinary Problems (from Physical Therapy) Active Problems Problem: Transfers Start Date: 11/30/23 Goal Start Date Expected End Date End Date LTG - Patient will transfer from one surface to another 11/30/23 12/28/23 -- Goal Details: With modified independence with a slideboard. Goal Start Date Expected End Date End Date STG - Transfer from bed to chair 11/30/23 12/14/23 -- Goal Details: With min assist using a slideboard. Goal Start Date Expected End Date End Date STG - Patient to transfer to and from sit to supine 11/30/23 12/14/23 -- Goal Details: With min assist using logroll technique. Problem: Balance Start Date: 11/30/23 Goal Start Date Expected End Date End Date STG - Maintains static sitting balance with upper extremity support 11/30/23 12/14/23 -- Goal Details: 5 minutes with supervision. OFF WORKER * Jessi Schwartz, OT - 12/04/2023 8:42 AM CST Occupational Therapy Occupational Therapy Initial [...] IADL independence, Decreased trunk control for functional activities, Poor/Decreased functional positioning, Decreased frequency/variety of movement Barriers to Discharge: Current Mobility Status, Current ADL Status Barrier Comments: fall risk Plan Plan Plan: Plan of care initiated, [...] therapy, Impaired ability to complete functional mobility, Not at baseline due to impaired ability to complete ADLs, Likely to return to the community at discharge with support system in place, Requires multiple therapy disciplines to address functional deficits OT Frequency during current admission: 3-5x/wk Treatment/Interventions during current admission: ADL/IADL retraining, Balance Training, Bed mobility, Endurance training, Equipment eval/education, Functional activity, Functional mobility training,Functional transfer training, Strengthening, Therapeutic activity, Therapeutic exercise, Transfer training, Positioning OT - Next Appointment: 12/06/23 OT Evaluation Complete: Yes General Information General Chart Reviewed: Yes Session Type: Evaluation OT Received On: 12/04/23 Safe Environment: Arm band checked, Patient found in supine, Session completed bedside Subjective: Agreeable to Therapy Family/Caregiver Present: No Occupational Therapy-Patient Goal: Pt agreeable to OT POC Precautions Precautions Precautions: Fall risk, Spinal/Back Precaution Comments: Verbally reviewed spinal precautions prior to mobility Home Living Home Living Type of Home: House Home Layout: Able to live on main level with bedroom/bathroom Home Access: Stairs to enter with rails Entrance Stairs-Rails: Both Entrance Stairs-Number of Steps: 2 Bathroom Shower/Tub: Walk-in shower with threshold Bathroom Toilet: Standard Home Mobility Equipment-Available: Wheeled walker Home Mobility Equipment-Currently Using: None (None before spinal surgeries) Additional Comments: Pt has been at [facility] and was using power w/c and working on slide board transfers Prior Function Prior Function Level of [place]: Independent with ADLs, Independent functional transfers, Independent with ambulation, Independent with homemaking with ambulation Lives With: Spouse Receives Help From: Spouse/Significant other (FT assist) Driving: Yes ADL Assistance: Independent Instrumental ADL (IADL) Assistance: Independent Fall within the last 6 months: Yes Fall within the last 6 months comment: Pt reports 2 falls in the last month 2/2 weakness from back problems Prior Function Comments: Pt reports he has an assisted living center picked out following d/c from rehab as his will not be able to physically assist him Activities of Daily Living Grooming Grooming: Where assessed: Edge of bed Grooming: Level of assistance: Maximum Assist (min for task; total for balance) Grooming: Assistance with: Increased time to complete LE Dressing LE Dressing: Where assessed: Supine, bed LE Dressing: Level of assistance: Dependent Toilet Transfers Toilet Transfers: Not tested Toilet Transfers Comments: NT 2/2 safety concerns Pain Pain Assessment Pain Assessment: No/denies pain Cognition Cognition Cognition Comments: SBT: 2 Arousal/Alertness: Alert Attention Span: Appears intact Memory: [...] name and address after me: Marcial Reddy [address] [place] [address] Without looking at the clock, tell me what time it is: Correct-within one hour Count aloud backwards from 20-1: 0 Errors Say the months of the year backwards in reverse order: 0 Errors Repeat the name and address I asked you to remember: 1 Error Short Blessed Total Score: 2 Short Blessed Comments: WNL 6 Clicks Daily Activity - 6 Clicks Putting on and taking off regular lower body clothing: Total Bathing: Total Toileting: Total Putting on and taking off upper body clothing: A Lot Personal Grooming: A lot Eating Meals: A little Total Score (range 6-24): 10 Score Interpretation: 10 Balance Static Sitting Balance Static Sitting-Balance Support: Feet supported, Bilateral upper extremity supported Static Sitting-Sitting Surface: Bed Static Sitting-Level of Assistance: Moderate assistance Static Sitting-Comment/# of Minutes: ~5 minutes, assist to correct posterior lean Dynamic Sitting Balance Dynamic Sitting-Balance Support: Unilateral upper extremity supported, Feet supported Dynamic Sitting-Balance: Forward lean, Lateral lean Dynamic Sitting-Sitting Surface: Bed Dynamic Sitting-Level of Assistance: Moderate assistance Dynamic Sitting-Comments: Mod to return to midline during functional reach activity Transfers Transfers Transfer: No (no OOB mobility 2/2 safety concerns) Bed Mobility Bed Mobility Bed Mobility: Yes Bed Mobility 1 Bed Mobility From 1: Supine Bed Mobility Type 1: To and from Bed Mobility to 1: Edge of bed Level of Assistance 1: Maximum Assist Bed Mobility Comments 1: HOB elevated, logroll technique utilized; Max for trunk elevation, LE management, and controlled descent RUE Assessment RUE Assessment RUE Assessment: Within Functional Limits LUE Assessment LUE Assessment LUE Assessment: Within Functional Limits Safe Environment End of Session Safe Environment End of Therapy Session: Patient left supine in bed, RN notified, Call light withinreach, Overbed table within reach Other Comments OT Goals Multi-Disciplinary Problems (from Occupational Therapy) Active Problems Problem: Dressings Lower Extremities Start Date: 12/04/23 Goal Start Date Expected End Date End Date STG - Patient to complete lower body dressing 12/04/23 12/11/23 -- Goal Details: With Min A using AE PRN Problem: Grooming Start Date: 12/04/23 Goal Start Date Expected End Date End Date STG - Patient will complete grooming 12/04/23 12/11/23 -- Goal Details: With Min A Problem: Toileting Start Date: 12/04/23 Goal Start Date Expected End Date End Date STG - Patient will complete toileting tasks with 12/04/23 12/11/23 -- Goal Details: Min A Problem: Transfers Start Date: 12/04/23 Goal Start Date Expected End Date End Date STG - Patient will perform toilet transfer 12/04/23 12/11/23 -- Goal Details: To BSC with Min A Problem: OT Misc Start Date: 12/04/23 Goal Start Date Expected End Date End Date OT LTG - Misc 1 12/04/23 12/11/23 -- Goal Details: Pt will complete all ADLs with SBA using AE PRN OFF WORKER * Galina Stoddard, OT - 12/03/2023 10:49 AM CST Occupational Therapy 12/03/23 1049 General OT Missed Visit Reason Patient declined (OT to follow up at later date/time.) OFF WORKER * Nicolas Dobbs MD - 12/03/2023 6:32 AM CST Daily Progress Note Division of Hospital Medicine Name: Hira Evans : 1950 Today's Date: December 03, 2023 Age: 73 y.o. male Admission: 11/29/2023 Bed: [id number] LOS: 4 days Subjective Chief complaint: edema Interval History NAEON. Haptoglobin low and LDH elevated, direct Jigna negative. Hemoglobin tano from 7.1-8.5 after1 unit of blood. No new motor symptoms on exam. Patient reports that he is having some pins and needle sensations inhis right calf and right knee. No constipation. He does not note any bleeding or bruising anywhere and he remains hemodynamically stable. Patient again wondering when he will start to see improvement in his BLEE. Objective Scheduled Meds PRN Meds Infusions acetaminophen, 1,000 mg, oral, Q6H acyclovir, 400 mg, oral, BID cholecalciferol, 5,000 Units, oral, QAM dilTIAZem XR, 240 mg, oral, BID gabapentin, 600 mg, oral, TID insulin lispro, 0-4 Units, subcutaneous, Nightly insulin lispro, 0-5 Units, subcutaneous, TID with meals levETIRAcetam, 1,000 mg, oral, BID miconazole, , topical, BID pantoprazole DR, 40 mg, oral, Daily senna-docusate, 2 tablet, oral, BID sulfamethoxazole-trimethoprim, 160 mg of trimethoprim, oral, BID tamsulosin, 0.8 mg, oral, Daily with dinner bisacodyL, 10 mg, rectal, Daily PRN cyclobenzaprine, 5 mg, oral, TID PRN dextrose, 15 g, oral, Q15 Min PRN OR dextrose, 250 mL, intravenous, Q15 Min PRN glucagon, 1 mg, intramuscular, Q30 Min PRN heparin, 2,000 Units, intravenous, Q6H PRN OR heparin, 3,000 Units, intravenous, Q6H PRN ondansetron ODT, 4 mg, oral, Q6H PRN OR ondansetron, 4 mg, intravenous, Q6H PRN oxyCODONE, 5 mg, oral, Q4H PRN ramelteon, 8 mg, oral, Nightly PRN traZODone, 50 mg, oral, Nightly PRN heparin, 0-33 Units/kg/hr, Last Rate: 23 Units/kg/hr (12/03/23440) Vitals Most Recent Vitals: T 36.9 ??C (98.4 ??F), HR 69, BP 114/72, RR 18, SpO2 100 %. 24hr Min/Max: Temp Min: 36.3 ??C (97.3 ??F) Max: 36.9 ??C (98.4 ??F) Pulse Min: 60 Max: 69 BP Min: 98/49 Max: 114/72 Resp Min: 16 Max: 18 SpO2 Min: 96 % Max: 100 % Intake/Output Summary (Last 24 hours) at 12/03/2023 0632 Last data filed at 12/03/2023 0600 Gross per 24 hour Intake 1190 ml Output 3400 ml Net -2210 ml Physical Exam Vitals and nursing note reviewed. Constitutional: General: He is not in acute distress. HENT: Head: Normocephalic and atraumatic. Eyes: General: No scleral icterus. Cardiovascular: Rate and Rhythm: Normal rate and regular rhythm. Pulmonary: Effort: Pulmonary effort is normal. Breath sounds: Normal breath sounds. Abdominal: Tenderness: There is no abdominal tenderness. Musculoskeletal: Comments: Pitting edema to hips bilaterally Neurological: Mental Status: He is alert. Comments: Conversant, moves BUE spontaneously. Has movement in toes and ankle on RLE, just toes LLE. Lines, Drains, Airways Peripheral IV 11/29/23 20 G Distal;Posterior;Right Forearm (Active) Peripheral IV 12/02/23 20 G Distal;Left;Posterior Forearm (Active) Urethral Catheter (Active) External Urinary Catheter (Active) Labs/Diagnostic Review Na 133 Cl 104 BUN 22 K 4.1 CO2 23 Cr 0.91 Mg 2.1, G AST 33 ALT 44 Alk Phos 147 Ca 8.6 TP - Alb 2.8 Total Bili: 0.2 Direct Bili: <0.2 \ Hgb 8.5 / WBC 5.2 -------- Plt 263 / MCV 90.8 \ INR - (Labs above are the most recent result obtained in the last 24 hours. For additional labs/trends, see Epic.) I have reviewed the laboratory results. Imaging Review No results found. Assessment/Plan Paraspinal hematoma Assessment & Plan - Occurred on therapeutic anticoagulation in setting of recent lumbar decompression, with subsequent LE paralysis and emergent hematoma evacuation on 11/07 - Directly-admitted from [facility] - PT/OT - Orthopedics following - had sutures removed on 11/30 - note had some drainage from sutures, plan 7-10d course SSTI antibiotics using Bactrim for now - anticoagulation as elsewhere (see DVT ) * DVT (deep venous thrombosis) (CMS/HCC) ([facility]) Assessment & Plan Patient with complex history with cardiac arrest [...] from groin on down - Vascular Surgery and Hematology consulted - Scrotal sling for support, q4 neurochecks, neurovascular checks - Started heparin drip w/o initial bolus - Patient and counseled on warning symptoms for bleeding - Transfused 1 unit PRBCs (12/02) w/ appropriate rise - Monitor CBC on anticoagulation UTI (urinary tract infection) Assessment & Plan - Patient diagnosed with UTI in setting of harris catheter on 11/21 with growth of Enterobacter cloacae (S - bactrim, macrobid, cefepime) - he denies symptoms, though was noted to have leukocytosis that has improved - Continue antibiotics at this time until urology evaluation (due for catheter exchange during thisadmission) Hydronephrosis with urinary obstruction due to renal calculus Assessment & Plan - Patient with noted progressed hydronephrosis during CT this month in setting of ureteral stones - No urinary retention or abd/back pain at this time - Obtain UA/micro - urology consulted, appreciate recommendations - repeat UA w/ reflex ordered - has been on Macrobid, stopped in favor of Bactrim to also cover SSTI of back Prediabetes Assessment & Plan - Was on mounjaro as outpatient - has required intermittent SSI at [facility] - Diabetic diet, SSI ordered Seizure (HCC) Assessment & Plan - Patient developed reported seizure on 10/23 during or prior to cardiac arrest with bilateral SDH noted on imaging - placed on keppra through follow-up with NSGY next month Scrotal swelling Assessment & Plan - In setting of presumed DVT - no evidence of infection on exam - Scrotal Sling - Maintain harris catheter - DVT mgt per above Lower extremity edema Assessment & Plan - Eval/mgt per above. NT-proBNP 105. Elevated transaminase level Assessment & Plan - AST 65, ALT 80, new - Unclear etiology at this time - possibly from IVC compression/distention in setting of potential thrombi? - If ongoing elevation - consider liver US this admission Hyponatremia Assessment & Plan - Na low 130s over the past week - Check Sosm, Uosm, Stephanie - CTM Anemia Assessment & Plan - Stable Hgb ~8 - Maintain Hgb > 7 Paralysis of both lower limbs (CMS/HCC) (HCC) Assessment & Plan - Patient with paralysis of LE following recent spinal hematoma s/p emergent evacuation on 11/07 - Ongoing 11/09 strength of LE, sensation intact - Fall precautions Pulmonary embolism (HCC) Assessment & Plan - Eval/mgt per above Prostate cancer (HCC) Assessment & Plan - s/p prostatectomy HTN (hypertension) Assessment & Plan - Cont diltiazem - home ARB has been on hold at [facility] - continue to hold here initially Code status : Full Code Diet : Adult Diet Restricted; Consistent Carbohydrate PT/OT Dispo Rec : PT Recommendation/Plan: Inpatient Rehab Facility / Supplementary Attestation The total encounter time on this service date was 50 minutes which was spent performing a [id number] encounter and personally completing the provider-level activities documented in the note. This includes time spent prior to the visit and after the visit in direct care of the patient. This time does not include time spent in any separately reportable services. Nicolas Dobbs MD OFF WORKER * Zehra Cook MD - 12/03/2023 6:22 AM CST Orthopaedic Spine Service Daily Progress Note Admit Date: 11/29/2023 Hospital Day: 4 Clohisy/Erkil[facility] Dx: BLE DVTs -- consult for guidance w/ anticoagulation Relevant PMHx: postop cardiac arrest and b/l PE s/p therapeutic anticoagulation c/b hematoma and cauda equina s/p decompression 11/08/23, prostate CA s/p prostatectomy, GERD, obesity, CKD, UTI, melanoma Plan: Ongoing discussion with heme/ortho spine/hospitalist w/ plan for possible hep gtt starting 11/30 Procedure(s): 10/23/23: L4-L5 decompression, TLIF, PSF 11/08/23: T5-L5 laminectomies w/hematoma evacuation and lumbar dural repair Interval History: NAEON. AFVSS. 8.5/25.7, WBC: 5.2, Cr: 0.91. Received 1 unit pRBC for low Hgb, Hgb this AM at 8.5 - on heparin drip. BLE at baseline - no bleeding/bruising. Denies back pain. Neuro exam at baseline - BLE edema present. Endorsing some intermittent tingling of R calf. Plan: continue care per medicine,continue heparin drip. Ortho will continue to follow. Edited by: Zehra Cook MD at 12/03/2023 0512 Objective Vitals: 24hr Min/Max: Temp Min: 36.3 ??C (97.3 ??F) Max: 36.9 ??C (98.4 ??F) Pulse Min: 60 Max: 69 BP Min: 98/49 Max: 114/72 Resp Min: 16 Max: 18 SpO2 Min: 96 % Max: 100 % I/O last 2 completed shifts: In: 1190 [P.O.:840; Blood:350] Out: 1825 [Urine:1825] I/O this shift: In: - Out: 1575 [Urine:1575] Physical Exam: Bilateral lower extremity edema 1/5 strength of the left EHL, 1/5 strength of the right tibialis anterior, and 2/5 strength of the right EHL and gastroc; otherwise, 0/5 strength throughout bilateral lower extremities Sensation intact to light touch BLE/BUE Lab/Diagnostic Review: Recent Labs Lab Units 12/02/23 2207 11/30/23 0751 11/30/23 0012 SODIUM mmol/L 133* < > 132* POTASSIUM PLASMA mmol/L 4.1 < > 4.7 CHLORIDE mmol/L 104 < > 98 CO2 mmol/L 23 < > 22 ANIONGAP mmol/L 6 < > 12 GLUCOSE mg/dL 102 < > 106 POC GLUCOSE MONITOR -- < > -- BUN SERUM mg/dL 22 < > 27* CREATININE mg/dL 0.91 < > 0.86 CALCIUM mg/dL 8.6 < > 8.6 ALBUMIN g/dL 2.8* < > 2.7* ALK PHOS Units/L 147* < > 140* ALT Units/L 44 < > 77* AST Units/L 33 < > 61* BILIRUBIN TOTAL mg/dL 0.2 < > 0.2 WBC K/cumm 5.2 < > 6.2 HEMOGLOBIN g/dL 8.5* < > 7.3* HEMATOCRIT % 25.7* < > 22.5* PLATELETS K/cumm 263 < > 158 NEUTROS PCT % 64.5 < > 69.7 LYMPHS PCT % 20.1 < > 17.1 MONOS PCT % 7.5 < > 6.8 EOS PCT % 6.2 < > 5.2 APTT sec 59* < > -- INR -- -- 1.04 < > = values in this interval not displayed. Micro: Lab Results Component Value Date MICROBIOLOGY 11/30/2023 Final Report: Less than 100,000 colonies/mL (clinically insignificant growth based on current clinical standards) MICROBIOLOGY (.) 11/21/2023 Final Report: Greater than or equal to 100,000 colonies/mL of Enterobacter cloacae complex MICROBIOLOGY Final Report: No growth 10/14/2023 MICROBIOLOGY Final Report: No growth 10/13/2023 MICROBIOLOGY Final Report: No growth 10/13/2023 MICROBIOLOGY Final Report: No growth 10/12/2023 MICROBIOLOGY Final Report: No growth 10/12/2023 MICROBIOLOGY (.) 10/12/2023 Final Report: Greater than or equal to 100,000 colonies/mL of Escherichia coli Greater than or equal to 100,000 colonies/mL of Escherichia coli #2 For susceptibility results, refer to accession number [id number] on the urine culture from 10/11/23 MICROBIOLOGY (.) 10/11/2023 Final Report: Greater than or equal to 100,000 colonies/mL of Escherichia coli Greater than or equal to 100,000 colonies/mL of Escherichia coli #2 MICROBIOLOGY 03/15/2023 Final Report: Less than 100,000 colonies/mL (clinically insignificant growth based on current clinical standards) MICROBIOLOGY Final Report: No growth 09/24/2019 Plan Continue heparin drip per primary - no bolus Off the shelf TLSO when out of bed Q4 neuro checks Continue abx for 10 days for cellulitis at proximal drain site Ortho will continue to follow Edited by: Hayden Youngblood MD at 11/29/20232020 Please call with questions during daytime. See below for overnight issues. If you know the resident's name on the appropriate orthopaedic surgery team, please use [email or web address] to page resident directly. If questions arise and the appropriate resident can't be reached or you are calling overnight, please contact [phone] ([place]- 7:30 PM - 6:30 AM - Floor Resident) or [phone] (24 hours/day - Consult Resident) Cosigned by Marcial Vu MD at 12/03/2023 7:35 AM BOIL OFF WORKER OFF WORKER OFF WORKER * Nicolas Dobbs MD - 12/02/2023 6:33 AM CST Daily Progress Note Division of Hospital Medicine Name: Hira Evans : 1950 Today's Date: December 02, 2023 Age: 73 y.o. male Admission: 11/29/2023 Bed: [id number] LOS: 3 days Subjective Chief complaint: DVTs Interval History NAEON. Urine culture w/ Clinically insignificant growth. PTTs are therapeutic. Hemoglobin has been slowly declining, down to 7.1. Discussed with patient, transfusing 1 unit PRBCs. No bleeding or bruising noted. He remains hemodynamically stable. Patient reports that he is starting to have return of some sensation in his right calf, but otherwise his motor function is similar to what it was yesterday. He reports that he has not been having much back discomfort since he has not been moving around much, so he has not needed the gabapentin like he did when he was at acute rehab. Patient is wondering when he will start noticing improvement in his BLE swelling. Objective Scheduled Meds PRN Meds Infusions acetaminophen, 1,000 mg, oral, Q6H acyclovir, 400 mg, oral, BID cholecalciferol, 5,000 Units, oral, QAM dilTIAZem XR, 240 mg, oral, BID gabapentin, 600 mg, oral, TID insulin lispro, 0-4 Units, subcutaneous, Nightly insulin lispro, 0-5 Units, subcutaneous, TID with meals levETIRAcetam, 1,000 mg, oral, BID miconazole, , topical, BID pantoprazole DR, 40 mg, oral, Daily senna-docusate, 2 tablet, oral, BID sulfamethoxazole-trimethoprim, 160 mg of trimethoprim, oral, BID tamsulosin, 0.8 mg, oral, Daily with dinner bisacodyL, 10 mg, rectal, Daily PRN cyclobenzaprine, 5 mg, oral, TID PRN dextrose, 15 g, oral, Q15 Min PRN OR dextrose, 250 mL, intravenous, Q15 Min PRN glucagon, 1 mg, intramuscular, Q30 Min PRN heparin, 2,000 Units, intravenous, Q6H PRN OR heparin, 3,000 Units, intravenous, Q6H PRN ondansetron ODT, 4 mg, oral, Q6H PRN OR ondansetron, 4 mg, intravenous, Q6H PRN oxyCODONE, 5 mg, oral, Q4H PRN ramelteon, 8 mg, oral, Nightly PRN traZODone, 50 mg, oral, Nightly PRN heparin, 0-33 Units/kg/hr, Last Rate: 22 Units/kg/hr (12/02/23 0118) Vitals Most Recent Vitals: T 36.8 ??C (98.2 ??F), HR 64, BP 104/70, RR 18, SpO2 99 %. 24hr Min/Max: Temp Min: 36.8 ??C (98.2 ??F) Max: 36.8 ??C (98.2 ??F) Pulse Min: 64 Max: 69 BP Min: 104/70 Max: 129/81 Resp Min: 18 Max: 18 SpO2 Min: 98 % Max: 99 % Intake/Output Summary (Last 24 hours) at 12/02/2023 0633 Last data filed at 12/01/2023 1810 Gross per 24 hour Intake 100 ml Output 3350 ml Net -3250 ml Physical Exam Vitals and nursing note reviewed. Constitutional: General: He is not in acute distress. HENT: Head: Normocephalic and atraumatic. Eyes: General: No scleral icterus. Cardiovascular: Rate and Rhythm: Normal rate and regular rhythm. Pulmonary: Effort: Pulmonary effort is normal. Breath sounds: Normal breath sounds. Abdominal: Tenderness: There is no abdominal tenderness. Musculoskeletal: Comments: Pitting edema to hips bilaterally Neurological: Mental Status: He is alert. Comments: Conversant, moves BUE spontaneously. Has movement in toes and ankle on RLE, just toes LLE. Lines, Drains, Airways Peripheral IV 11/29/23 20 G Distal;Posterior;Right Forearm (Active) Urethral Catheter (Active) External Urinary Catheter (Active) Labs/Diagnostic Review Na 135 Cl 103 BUN 24 K 4.3 CO2 25 Cr 1.00 Mg 2.2, G AST 32 ALT 50 Alk Phos 129 Ca 8.8 TP - Alb 2.8 Total Bili: 0.2 Direct Bili: <0.2 \ Hgb 7.1 / WBC 5.2 -------- Plt 261 / MCV 94.8 \ INR - (Labs above are the most recent result obtained in the last 24 hours. For additional labs/trends, see Epic.) I have reviewed the laboratory results. Imaging Review No results found. Assessment/Plan Paraspinal hematoma Assessment & Plan - Occurred on therapeutic anticoagulation in setting of recent lumbar decompression, with subsequent LE paralysis and emergent hematoma evacuation on 11/07 - Directly-admitted from [facility] - PT/OT - Orthopedics following - had sutures removed on 11/30 - note had some drainage from sutures, plan 7-10d course SSTI antibiotics using Bactrim for now - anticoagulation as elsewhere (see DVT ) * DVT (deep venous thrombosis) ([facility]) ([facility]) Assessment & Plan Patient with complex history with cardiac arrest [...] from groin on down - Vascular Surgery and Hematology consulted - Scrotal sling for support, q4 neurochecks, neurovascular checks - Started heparin drip w/o initial bolus - Patient and counseled on warning symptoms for bleeding - Transfusing 1 unit PRBCs (12/02) - Monitor CBC on anticoagulation UTI (urinary tract infection) Assessment & Plan - Patient diagnosed with UTI in setting of harris catheter on 11/21 with growth of Enterobacter cloacae (S - bactrim, macrobid, cefepime) - he denies symptoms, though was noted to have leukocytosis that has improved - Continue antibiotics at this time until urology evaluation (due for catheter exchange during thisadmission) Hydronephrosis with urinary obstruction due to renal calculus Assessment & Plan - Patient with noted progressed hydronephrosis during CT this month in setting of ureteral stones - No urinary retention or abd/back pain at this time - Obtain UA/micro - urology consulted, appreciate recommendations - repeat UA w/ reflex ordered - has been on Macrobid, stopped in favor of Bactrim to also cover SSTI of back Prediabetes Assessment & Plan - Was on mounjaro as outpatient - has required intermittent SSI at [facility] - Diabetic diet, SSI ordered Seizure ([facility]) Assessment & Plan - Patient developed reported seizure on 10/23 during or prior to cardiac arrest with bilateral SDH noted on imaging - placed on keppra through follow-up with NSGY next month Scrotal swelling Assessment & Plan - In setting of presumed DVT - no evidence of infection on exam - Scrotal Sling - Maintain harris catheter - DVT mgt per above Lower extremity edema Assessment & Plan - Eval/mgt per above. NT-proBNP 105. Elevated transaminase level Assessment & Plan - AST 65, ALT 80, new - Unclear etiology at this time - possibly from IVC compression/distention in setting of potential thrombi? - If ongoing elevation - consider liver US this admission Hyponatremia Assessment & Plan - Na low 130s over the past week - Check Sosm, Uosm, Stephanie - CTM Anemia Assessment & Plan - Stable Hgb ~8 - Maintain Hgb > 7 Paralysis of both lower limbs (CMS/HCC) ([facility]) Assessment & Plan - Patient with paralysis of LE following recent spinal hematoma s/p emergent evacuation on 11/07 - Ongoing 1/5 strength of LE, sensation intact - Fall precautions Pulmonary embolism ([facility]) Assessment & Plan - Eval/mgt per above Prostate cancer ([facility]) Assessment & Plan - s/p prostatectomy HTN (hypertension) Assessment & Plan - Cont diltiazem - home ARB has been on hold at [facility] - continue to hold here initially Code status : Full Code Diet : Adult Diet Restricted; Consistent Carbohydrate PT/OT Dispo Rec : PT Recommendation/Plan: Inpatient Rehab Facility / Supplementary Attestation Today, I am treating the patient for DVT which is in severe exacerbation, progression, or experiencing treatment side effects as evidenced by symptoms, exam findings, labs, as described in the note. The patient is being intensively monitored for drug toxicity from heparin drip (CBC, aPTT). Nicolas Dobbs MD OFF WORKER * Justin Chaudhari MD - 12/01/2023 10:32 AM CST Vascular Surgery Daily Progress Patient Name/MRN: Hira Evans [id number] Treatment Team: Vascular Surgery- Pager: [phone] Attending: Nicolas Dobbs* Today's Date: 12/01/2023 Room/Bed: [place] [id number] Admit Date: 11/29/2023 Code Status: Full Code Subjective Chief complaint: bilateral lower extremity DVTs Events During This Hospitalization: 73yoM with hx recent L4-5 PSF (10/23/23) c/b postop cardiac arrest and bilateral PE on AC c/b spinal hematoma requiring emergent decompression (11/08/22) resulting in BLE paraplegia s/p IVC filter (11/09) now re-admitted from [facility] w/ concern for extensive bilateral DVT on [facility] duplex. Events Over Last 24 Hours: - NAEO - Primarily bothered by scrotal swelling - not yet therapeutic on heparin gtt No Known Allergies Current Facility-Administered Medications Medication Dose Route Frequency Provider Last Rate Last Admin acetaminophen (TYLENOL) tablet 1,000 mg 1,000 mg oral Q6H Errol Escobar MD 1,000 mg at 12/01/23 0807 acyclovir (ZOVIRAX) tablet 400 mg 400 mg oral BID Errol Escobar MD 400 mg at 12/01/23 0808 bisacodyL (DULCOLAX) suppository 10 mg 10 mg rectal Daily PRN Errol Escobar MD cholecalciferol (VITAMIN D-3) capsule 5,000 Units 5,000 Units oral QAM Errol Escobar MD 5,000 Units at 12/01/23 0808 cyclobenzaprine (FLEXERIL) tablet 5 mg 5 mg oral TID PRN Errol Escobar MD dextrose gel in packet 15 g 15 g oral Q15 Min PRN Errol Escobar MD Or dextrose (D10W) 10% bolus 250 mL 250 mL intravenous Q15 Min PRN Errol Escobar MD dilTIAZem XR (CARDIZEM CD,DILACOR XR) 24 hour capsule 240 mg 240 mg oral BID Errol Escobar MD 240 mg at 12/01/23 0807 gabapentin (NEURONTIN) tablet 600 mg 600 mg oral TID Errol Escobar MD 600 mg at 12/01/23 0808 glucagon injection 1 mg 1 mg intramuscular Q30 Min PRN Errol Escobar MD heparin 1,000 unit/mL injection 2,000 Units 2,000 Units intravenous Q6H PRN Vibha Ramirez MD Or heparin 1,000 unit/mL injection 3,000 Units 3,000 Units intravenous Q6H PRN Vibha Ramirez MD 3,000 Units at 12/01/23 0614 heparin in 0.9% sodium chloride 25,000 unit/250 mL infusion (premix) 0-33 Units/kg/hr intravenous Titrated Vibha Ramirez MD 14.69 mL/hr at 12/01/23 0959 18 Units/kg/hr at 12/01/23 0959 insulin lispro (HumaLOG, ADMELOG) 100 unit/mL injection 0-4 Units 0-4 Units subcutaneous Nightly Errol Escobar MD insulin lispro (HumaLOG, ADMELOG) 100 unit/mL injection 0-5 Units 0-5 Units subcutaneous TID with meals Errol Escobar MD levETIRAcetam (KEPPRA) tablet 1,000 mg 1,000 mg oral BID Errol Escobar MD 1,000 mg at 12/01/23 0808 miconazole 2 % powder topical BID Errol Escobar MD Given at 11/30/232047 ondansetron ODT (ZOFRAN-ODT) disintegrating tablet 4 mg 4 mg oral Q6H PRN Errol Escobar MD Or ondansetron (ZOFRAN) injection 4 mg 4 mg intravenous Q6H PRN Errol Escobar MD oxyCODONE (ROXICODONE) tablet 5 mg 5 mg oral Q4H PRN Errol Escobar MD pantoprazole DR (PROTONIX) extended release tablet 40 mg 40 mg oral Daily Errol Escobar MD 40 mg at 12/01/23 0807 ramelteon (ROZEREM) tablet 8 mg 8 mg oral Nightly PRN Errol Escobar MD 8 mg at 11/30/232132 senna-docusate (PERICOLACE) 8.6-50 mg per tablet 2 tablet 2 tablet oral BID Errol Escobar MD 2 tablet at 11/30/232046 sulfamethoxazole-trimethoprim (BACTRIM DS) 800-160 mg per tablet 160 mg of trimethoprim 160 mg of trimethoprim oral BID Vibha Ramirez MD 160 mg of trimethoprim at 12/01/23 0807 tamsulosin (FLOMAX) extended release capsule 0.8 mg 0.8 mg oral Daily with dinner Errol Escobar MD 0.8 mg at 11/30/23 1702 traZODone (DESYREL) tablet 50 mg 50 mg oral Nightly PRN Vibha Ramirez MD Objective Vitals: 24hr Min/Max: Temp Min: 36.4 ??C (97.6 ??F) Max: 36.7 ??C (98.1 ??F) Pulse Min: 63 Max: 74 BP Min: 104/61 Max: 113/67 Resp Min: 18 Max: 18 SpO2 Min: 96 % Max: 100 % Most Recent : Vitals: 12/01/23 0430 BP: 104/61 Pulse: 69 Resp: 18 Temp: 36.4 ??C (97.6 ??F) SpO2: 100% No intake/output data recorded. I/O this shift: In: - Out: 950 [Urine:950] Physical Exam: General: alert, voice strong, clear speech HEENT: moist mocosa, EOM intact, pupils equally round and reactive to light CV: normal rhythm, normal rate Pulmonary: unlabored breathing, symmetric chest rise Abdominal: soft, nondistended Groin: +significant scrotal edema; harris with purulent discharge around catheter Psychiatric: normal mood/affect Neurologic: alert and oriented x3; BLE paralysis Ext: pink and warm, 2+ lower extremity edema to hips Skin: dry, no cyanosis, no rashes or cutaneous lesions, no ulcers or trophic skin change Pulses: Right Radial: palpable Right Femoral: palpable Right DP: palpable Right PT: palpable Left Radial: palpable Left Femoral: palpable Left DP: palpable Left PT: palpable Lab/Radiology/Diagnostic Review: Laboratory review: Lab results in the last 24 hours: Recent Results (from the past 24 hour(s)) aPTT Collection Time: 11/30/23 11:16 AM Result Value Ref Range aPTT 28 28 - 38 sec POCT glucose Collection Time: 11/30/23 11:59 AM Result Value Ref Range Glucose, POC 115 70 - 199 mg/dL Urinalysis reflex to microscopic and culture Urine, clean voided Collection Time: 11/30/23 2:48 PM Specimen: Urine, clean voided Result Value Ref Range Color, ur Yellow Yellow Clarity, ur Cloudy (A) Clear Specific gravity, ur 1.029 1.003 - 1.030 pH, urine 6.5 Protein, ur ql 1+ (A) Negative Glucose, ur ql Negative Negative Ketones, ur Negative Negative Bilirubin, ur Negative Negative Blood, ur 1+ (A) Negative Urobilinogen, ur <2.0 <2.0 mg/dL Nitrite, ur Negative Negative Leukocyte esterase, ur 3+ (A) Negative UA reflex comment Reflex to microscopic UA will be performed. Urinalysis, microscopic only Collection Time: 11/30/23 2:48 PM Result Value Ref Range WBC, ur >50 (A) 0 - 5 /HPF RBC, ur 21-50 (A) 0 - 2 /HPF Epithelial cells, squamous, ur 11-20 (A) 0 - 5 /HPF Bacteria, ur 1+ (A) Yeast, ur 1+ (A) Mucous, ur Present (A) Culture Reflex Comment Reflex to urine culture will be performed. POCT glucose Collection Time: 11/30/23 4:22 PM Result Value Ref Range Glucose, POC 138 70 - 199 mg/dL aPTT Collection Time: 11/30/23 8:44 PM Result Value Ref Range aPTT 28 28 - 38 sec POCT glucose Collection Time: 11/30/23 8:46 PM Result Value Ref Range Glucose, POC 122 70 - 199 mg/dL aPTT Collection Time: 12/01/23 4:40 AM Result Value Ref Range aPTT 43 (H) 28 - 38 sec POCT glucose Collection Time: 12/01/23 7:14 AM Result Value Ref Range Glucose, POC 116 70 - 199 mg/dL Imaging review: I have reviewed the result(s) below. CT ABDOMEN PELVIS W CONTRAST 11/30/2023 Narrative EXAMINATION: Computed tomography of the abdomen and pelvis with intravenous contrast HISTORY: Evaluate for deep venous thrombosis. TECHNIQUE: Transaxial computed tomographic images of the abdomen and pelvis were obtained with intravenous contrast according to the venogram protocol after the uneventful administration of 88 mL Opti-Ray 350 intravenous contrast. COMPARISON: 11/19/2023 FINDINGS: Limited views of the thorax are provided. There is slight motion artifact. There is a inferior vena cava filter seen at the level just below the renal veins. There is low attenuation associated with the IVC filter that extends inferiorly within the IVC and also appears to extend into the internal and external iliac vasculature bilaterally there is suggestion that they are are filling defects with in bilateral common femoral veins. Overall this is suspicious for extensive clot burden. No definite clot is seen within the renal veins. Recommend correlation with the findings from ultrasound. It is somewhat difficult to evaluate clot burden given the timing of the contrast. Limited views of the thorax are provided. No suspicious findings on limited views of the thorax. Study slightly limited by motion artifact. No suspicious pulmonary nodules or masses. Scattered atelectasis is seen. No pneumothorax or pleural effusion. The heart size is normal. Trace pericardial effusion. There is diffuse body wall edema. Scattered cysts are seen within the liver. No suspicious focal hepatic lesion. Gallbladder normal. There is suggestion of periportal space widening which can be seen in the setting of hepatic fibrosis. The right hemiliver appears somewhat atrophic. No bile duct dilation. Pancreas normal. Spleen normal. Interval decrease in size of the subcapsular fluid in the left kidney. There are too small to characterize hypoattenuating lesion seen within the right kidney which are unchanged. No suspicious focal renal lesion. There is a left-sided ureteral stent which terminates in the extrarenal pelvis on the left in the urinary bladder. There is a prominent extrarenal pelvis with unchanged mild hydronephrosis. Contrast is seen within the collecting systems in keeping with the timing of the contrast. Urinary bladder is decompressed. As a Harris catheter in place. Prostatectomy changes are noted. The appendix is not readily identified. No appendiceal inflammation. No suspicious bowel wall thickening. No evidence of bowel obstruction. Limited evaluation the portal venous vasculature given the timing of the contrast. The aorta is normal in caliber. Scattered vascular calcifications are seen. Trace free fluid is seen within the intraperitoneal cavity. There is no free intraperitoneal fluid or gas. Large bilateral hydroceles. There is extensive body wall edema, increased since the prior examination, and there is suggestion of collateral vessels in the subcutaneous fat of the anterior abdominal wall. Postsurgical changes of posterior decompression with instrumented spinal fusion are seen within the lumbar spine. The appearance is overall similar when compared to the prior examination. Degenerative changes are seen in the spine. No suspicious lytic or blastic osseous lesions. Impression 1. Somewhat limited evaluation of the systemic [...] A left ureteral stent is in place. Electronically signed by: Jorge Mayo M.D., Ph.D US VEIN DUPLEX LOWER EXTREMITY BILATERAL COMPLETE 11/30/2023 (Preliminary) This result has not been signed. Information might be incomplete. Narrative [facility] - Department of Vascular Surgery, Vascular Laboratory [address] [place] [address] Lower Extremity Venous Ultrasound Report Preliminary Patient Name: HIRA EVANS : 1950 (73y 5m) Study Date: 11/30/2023 7:23:48 AM Gender: M Tech: Location: [id number] Ref Provider: ERROL ESCOBAR Quality: Adequate Order Provider: ERROL ESCOBAR 73yoM with hx recent L4-5 PSF (10/23/23) c/b postop cardiac arrest and bilateral PE on AC c/b spinal hematoma requiring emergent decompression (11/08/22) resulting in BLE paraplegia s/p IVC filter (11/09) now re-admitted from [facility] w/ concern for extensive bilateral DVT on [facility] duplex. PROCEDURES: Vascular Report: Venous Duplex imaging was performed bilaterally in the lower extremities. The common femoral, femoral, popliteal, posterior tibial, peroneal veins were evaluated for patency, spontaneity and phasicity with Doppler, compression and augmentation maneuvers. Great saphenous vein proximal at the junction was evaluated with compression maneuvers. INDICATIONS: Swelling lower extremity, bilateral. FINDINGS: Performing Dust Mixer: Josiane Chance RVT. Right: Duplex scan reveals dilated vein with [...] Unable to visualize the bilateral iliac veins. Provider Notification: Results called on the above date to Vibha Ramirez MD. Time called 08:00. CONCLUSIONS: 1. There is acute deep vein thrombosis in the bilateral lower extremities involving vein(s) as noted above. HISTORY: HTN, DVT, PE, Cancer, IVC filter, former smoker. PREVIOUS STUDIES: Previous study performed on 11/08/23 negative. DISCLAIMER: The study images and the final report will be retained in the patient chart by the Vascular Laboratory for the legally required time period. This chart constitutes the legal record of any testing performed. ATTESTATION: Electronically Signed By: 2023-11-30 07:55:07 BOIL OFF WORKER Assessment/Plan Principal Problem: DVT (deep venous thrombosis) (CMS/HCC) (HCC) Active Problems: HTN (hypertension) Prostate cancer (HCC) Hydronephrosis with urinary obstruction due to renal calculus UTI (urinary tract infection) Pulmonary embolism (HCC) Paralysis of both lower limbs (CMS/HCC) (HCC) Anemia Paraspinal hematoma Hyponatremia Elevated transaminase level Lower extremity edema Scrotal swelling Seizure (HCC) Prediabetes 73yoM with hx recent L4-5 PSF (10/23/23) c/b postop cardiac arrest and bilateral PE on AC c/b spinal hematoma requiring emergent decompression (11/08/22) resulting in BLE paraplegia s/p IVC filter (11/09) now re-admitted from [facility] w/ concern for extensive bilateral DVT on [facility] duplex. Plan - Recommend continuing therapeutic anticoagulation - Given patients current symptoms are not related to his lower extremities, will defer thrombectomyat this time and continue with AC - Vascular available as needed Justin Chaudhari MD General Surgery PGY-2 PGY-2 General Surgery Vascular Consult Vascular Inpatient Floor [facility] Cosigned by Marcial Barron MD at 12/04/2023 12:39 PM BOIL OFF WORKER OFF WORKER OFF WORKER * Nicolas Dobbs MD - 12/01/2023 8:01 AM CST Daily Progress Note Division of Hospital Medicine Name: Hira Evans : 1950 Today's Date: December 01, 2023 Age: 73 y.o. male Admission: 11/29/2023 Bed: [id number] LOS: 2 days Subjective Chief complaint: Edema, LE weakness, DVT Interval History No acute events overnight. PTTs slowly rising. Remains hemodynamically stable. Patient reports goodappetite, no issues with constipation. He is wondering when the swelling in his legs will start to go down. In terms lower extremity strength, he reports he can wiggle his toes and flex his ankle on the right and can wiggle his toes on the left. Last UA was contaminated with squamous cell; repeat UA ordered. Reordered a.m. labs. Patient denies bleeding or bruising. Objective Scheduled Meds PRN Meds Infusions acetaminophen, 1,000 mg, oral, Q6H acyclovir, 400 mg, oral, BID cholecalciferol, 5,000 Units, oral, QAM dilTIAZem XR, 240 mg, oral, BID gabapentin, 600 mg, oral, TID insulin lispro, 0-4 Units, subcutaneous, Nightly insulin lispro, 0-5 Units, subcutaneous, TID with meals levETIRAcetam, 1,000 mg, oral, BID miconazole, , topical, BID pantoprazole DR, 40 mg, oral, Daily senna-docusate, 2 tablet, oral, BID sulfamethoxazole-trimethoprim, 160 mg of trimethoprim, oral, BID tamsulosin, 0.8 mg, oral, Daily with dinner bisacodyL, 10 mg, rectal, Daily PRN cyclobenzaprine, 5 mg, oral, TID PRN dextrose, 15 g, oral, Q15 Min PRN OR dextrose, 250 mL, intravenous, Q15 Min PRN glucagon, 1 mg, intramuscular, Q30 Min PRN heparin, 2,000 Units, intravenous, Q6H PRN OR heparin, 3,000 Units, intravenous, Q6H PRN ondansetron ODT, 4 mg, oral, Q6H PRN OR ondansetron, 4 mg, intravenous, Q6H PRN oxyCODONE, 5 mg, oral, Q4H PRN ramelteon, 8 mg, oral, Nightly PRN traZODone, 50 mg, oral, Nightly PRN heparin, 0-33 Units/kg/hr, Last Rate: 18 Units/kg/hr (12/01/23 0615) Vitals Most Recent Vitals: T 36.4 ??C (97.6 ??F), HR 69, BP 104/61, RR 18, SpO2 100 %. 24hr Min/Max: Temp Min: 36.4 ??C (97.6 ??F) Max: 36.7 ??C (98.1 ??F) Pulse Min: 63 Max: 74 BP Min: 104/61 Max: 113/67 Resp Min: 18 Max: 18 SpO2 Min: 96 % Max: 100 % Intake/Output Summary (Last 24 hours) at 12/01/2023 0801 Last data filed at 12/01/2023 0730 Gross per 24 hour Intake -- Output 950 ml Net -950 ml Physical Exam Vitals and nursing note reviewed. Constitutional: General: He is not in acute distress. HENT: Head: Normocephalic and atraumatic. Eyes: General: No scleral icterus. Cardiovascular: Rate and Rhythm: Normal rate and regular rhythm. Pulmonary: Effort: Pulmonary effort is normal. Breath sounds: Normal breath sounds. Abdominal: Tenderness: There is no abdominal tenderness. Musculoskeletal: Comments: Pitting edema to hips bilaterally Neurological: Mental Status: He is alert. Comments: Conversant, moves BUE spontaneously. Has movement in toes and ankle on RLE, just toes LLE. Lines, Drains, Airways Peripheral IV 11/29/23 20 G Distal;Posterior;Right Forearm (Active) Urethral Catheter (Active) External Urinary Catheter (Active) Labs/Diagnostic Review Na 132 Cl 98 BUN 27 K 4.7 CO2 22 Cr 0.86 Mg 2.1, G AST 61 ALT 77 Alk Phos 140 Ca 8.6 TP - Alb 2.7 Total Bili: 0.2 Direct Bili: <0.2 \ Hgb 7.3 / WBC 6.2 -------- Plt 158 / MCV 94.1 \ INR 1.04 (Labs above are the most recent result obtained in the last 24 hours. For additional labs/trends, see Epic.) I have reviewed the laboratory results. Imaging Review CT Abdomen Pelvis W Contrast Result Date: 11/30/2023 1. Somewhat limited evaluation of the systemic [...] Doppler studies to confirm presence of clot withinthe common femoral veins. No definite involvement of [...] A left ureteral stent is in place. Electronically signed by: Jorge Mayo M.D., Ph.D Assessment/Plan Paraspinal hematoma Assessment & Plan - Occurred on therapeutic anticoagulation in setting of recent lumbar decompression, with subsequent LE paralysis and emergent hematoma evacuation on 11/07 - Directly-admitted from [facility] - PT/OT - Orthopedics following - had sutures removed on 11/30 - note had some drainage from sutures, plan 7-10d course SSTI antibiotics using Bactrim for now - anticoagulation as elsewhere (see DVT ) * DVT (deep venous thrombosis) ([facility]/HCC) ([facility]) Assessment & Plan Patient with complex history with cardiac arrest [...] from groin on down - Vascular Surgery and Hematology consulted - Scrotal sling for support, q4 neurochecks, neurovascular checks - Started heparin drip w/o initial bolus - Patient and counseled on warning symptoms for bleeding - Monitor CBC on anticoagulation UTI (urinary tract infection) Assessment & Plan - Patient diagnosed with UTI in setting of harris catheter on 11/21 with growth of Enterobacter cloacae (S - bactrim, macrobid, cefepime) - he denies symptoms, though was noted to have leukocytosis that has improved - Continue antibiotics at this time until urology evaluation (due for catheter exchange during thisadmission) Hydronephrosis with urinary obstruction due to renal calculus Assessment & Plan - Patient with noted progressed hydronephrosis during CT this month in setting of ureteral stones - No urinary retention or abd/back pain at this time - Obtain UA/micro - urology consulted, appreciate recommendations - repeat UA w/ reflex ordered - has been on Macrobid, stopped in favor of Bactrim to also cover SSTI of back Prediabetes Assessment & Plan - Was on mounjaro as outpatient - has required intermittent SSI at [facility] - Diabetic diet, SSI ordered Seizure (HCC) Assessment & Plan - Patient developed reported seizure on 10/23 during or prior to cardiac arrest with bilateral SDH noted on imaging - placed on keppra through follow-up with NSGY next month Scrotal swelling Assessment & Plan - In setting of presumed DVT - no evidence of infection on exam - Scrotal Sling - Maintain harris catheter - DVT mgt per above Lower extremity edema Assessment & Plan - Eval/mgt per above. NT-proBNP 105. Elevated transaminase level Assessment & Plan - AST 65, ALT 80, new - Unclear etiology at this time - possibly from IVC compression/distention in setting of potential thrombi? - If ongoing elevation - consider liver US this admission Hyponatremia Assessment & Plan - Na low 130s over the past week - Check Sosm, Uosm, Stephanie - CTM Anemia Assessment & Plan - Stable Hgb ~8 - Maintain Hgb > 7 Paralysis of both lower limbs (CMS/HCC) (HCC) Assessment & Plan - Patient with paralysis of LE following recent spinal hematoma s/p emergent evacuation on 11/07 - Ongoing 1/ strength of LE, sensation intact - Fall precautions Pulmonary embolism (HCC) Assessment & Plan - Eval/mgt per above Prostate cancer (HCC) Assessment & Plan - s/p prostatectomy HTN (hypertension) Assessment & Plan - Cont diltiazem - home ARB has been on hold at [facility] - continue to hold here initially Code status : Full Code Diet : Adult Diet Restricted; Consistent Carbohydrate PT/OT Dispo Rec : PT Recommendation/Plan: Inpatient Rehab Facility / Supplementary Attestation Today, I am treating the patient for DVT which is in severe exacerbation, progression, or experiencing treatment side effects as evidenced by symptoms, exam findings, imaging findings, as described in the note. Reviewed records from the following unique sources (external institutions or providers from different services): Vascular Surgery progress notes. The patient is being intensively monitored for drug toxicity from heparin infusion (CBC, aPTT). Nicolas Dobbs MD OFF WORKER * Francisco Javier Frank, PT - 11/30/2023 3:17 PM CST Physical Therapy Physical Therapy Initial Assessment NOTE: This is a summary note for the jones assessments completed during the evaluation session. For full details, review chart review for all flowsheets documented on by this physical therapist on thisdate. Vital signs documented in vital signs flowsheet. Assessment Assessment Prognosis: Fair Problem List: Decreased strength, Decreased endurance, Impaired balance, Decreased mobility Problem List Comments: PT diagnosis: pt with BLE DVTs with a history of Cauda Equina s/p L4-5 decompression TLIF, PSF (10/23/23) c/b hematoma s/p T5-L5 laminectomies and hematoma evacuation (11/08), PE, HTN, Seizures, prediabetes presents with deficits and impairments as described above.These deficits prevent full participation in bed and w/c mobility. Plan Plan Plan : Plan of care [...] ADLs, Impaired ability to complete functional mobility, Requires greater than 25% physical assistance with most mobility tasks, Likely to return to the community at discharge with support system in place, Requires multiple therapy disciplines to address functional deficits PT Frequency during current admission: 5-7x/wk Treatment/Interventions during current admission: Balance Training, Bed mobility, Endurance training, Functional transfer training, Strengthening, Therapeutic activity, Therapeutic exercise Progress during current admission: Progressing toward goals PT - Next Appointment: 12/03/23 PT Evaluation Complete: Yes General Information General Chart Reviewed: Yes Session Type: Evaluation PT Received On: 11/30/23 Safe Environment: Arm band checked, Patient found in supine, Gait belt not utilized, see comment (no OOB mobility) Subjective: Agreeable to Therapy Family/Caregiver Present: Yes (spouse) Physical Therapy-Patient Goal: Return to [facility], walk again Prior Function Prior Function Level of [place]: Independent with ADLs, Independent functional transfers, Independent with ambulation, Independent with homemaking with ambulation Lives With: Spouse Receives Help From: Spouse/Significant other, Family (multimedia designer assist) Fall within the last 6 months: No Home Living Home Living Type of Home: House Home Layout: One level Home Access: Stairs to enter with rails Entrance Stairs-Rails: Right Entrance Stairs-Number of Steps: 2 Home Mobility Equipment-Available: Wheeled walker Home Mobility Equipment-Currently Using: Wheeled walker (had been using WW prior to last hospital stay, has been working on slideboard transfers at [facility].) Precautions Precautions Precautions: Spinal/Back Precaution Comments: PT reviewed spinal precautions, pt demonstrated understanding. Pain Pain Assessment Pain Assessment: No/denies pain Cognition Cognition Arousal/Alertness: Alert, Appropriate responses to stimuli Orientation : Oriented X4 (person, place, time, situation) Following Commands: Follows all commands and directions without difficulty Safety Judgment: Good awareness of safety precautions 6 Clicks Basic Mobility - 6 Click How much difficulty does the patient have: Turning over in bed: A lot How much difficulty does the patient currently have: Sitting down and standing up from a chair witharms?: Unable How much difficulty does the patient have: Moving from lying on back to sitting on the side of the bed?: A lot How much difficulty does the patient have: Moving to and from a bed to a chair including wheelchair?: Total How much help does the patient currently need: Walk in hospital room?: Total How much help from another person does the patient currently need: Climbing 3-5 steps with a railing?: Total Total 6 Click Score (range 6-24): 8 Score Interpretation: 8 Bed Mobility Bed Mobility 1 Bed Mobility From 1: Supine Bed Mobility Type 1: To and from Bed Mobility to 1: Side lying-right, Side lying-left Level of Assistance 1: Moderate Assist Bed Mobility Comments 1: HOB flat,performed 2 reps with logroll each direction Bed Mobility 2 Bed Mobility From 2: Supine Bed Mobility Type 2: To and from Bed Mobility to 2: Short sit, Edge of Bed Level of Assistance 2: Maximum Assist Bed Mobility Comments 2: HOB flat, logroll to his L OOB with assist for roll completion, BLE management and trunk elevation. Assist for BLE management, trunk lowering and controlling logroll back to his R when returning to supine. Transfers Transfers Transfer: No (spouse will be bringing TLSO back to hospital this weekend.) Balance Static Sitting Balance Static Sitting-Balance Support: Feet supported, Bilateral upper extremity supported Static Sitting-Sitting Surface: Bed Static Sitting-Level of Assistance: Moderate assistance Static Sitting-Comment/# of Minutes: 3 minutes, assist to maintain upright posture. Ambulation Ambulation Ambulation: No Stairs Curbs RLE Assessment RLE Assessment RLE Assessment: Exceptions to WFL RLE Comments: full PROM Strength RLE R Knee Flexion: 0/5 R Knee Extension: 0/5 R Ankle Dorsiflexion: 1/5 R Ankle Plantar Flexion: 1/5 LLE Assessment LLE Assessment LLE Assessment: Exceptions to WFL LLE Comments: full PROM Strength LLE L Knee Flexion: 0/5 L Knee Extension: 0/5 L Ankle Dorsiflexion: 1/5 L Ankle Plantar Flexion: 0/5 Equipment Used Safe Environment End of Session Safe Environment End of Therapy Session: Patient left supine in bed, Call light within reach Other Comments PT Goals Multi-Disciplinary Problems (from Physical Therapy) Active Problems Problem: Transfers Start Date: 11/30/23 Goal Start Date Expected End Date End Date LTG - Patient will transfer from one surface to another 11/30/23 12/28/23 -- Goal Details: With modified independence with a slideboard. Goal Start Date Expected End Date End Date STG - Transfer from bed to chair 11/30/23 12/14/23 -- Goal Details: With min assist using a slideboard. Goal Start Date Expected End Date End Date STG - Patient to transfer to and from sit to supine 11/30/23 12/14/23 -- Goal Details: With min assist using logroll technique. Problem: Balance Start Date: 11/30/23 Goal Start Date Expected End Date End Date STG - Maintains static sitting balance with upper extremity support 11/30/23 12/14/23 -- Goal Details: 5 minutes with supervision. OFF WORKER * Vibha Ramirez MD - 11/30/2023 11:46 AM CST Daily Progress Note Division of Hospital Medicine Name: Hira Evans : 1950 Today's Date: November 30, 2023 Age: 73 y.o. male Admission: 11/29/2023 Bed: [place] [id number] LOS: 1 days Subjective Chief complaint: leg pain/swelling Interval History Patient admitted to the hospital yesterday for management of extensive bilateral DVTs. Seen by vascular, orthopedics, urology, hematology this AM. Spoke to ortho - they removed stitches, recommendingantibiotics to cover skin dominic x7- 10d given some serous drainage from one of the suture sites. Dressing to come down in ~3 days. They are ok w/ cautiously proceeding with anticoagulation. Urology requested updated urine analysis and culture. Patient today is nervous about anticoagulation but agreeable to proceeding. Answered questions fromamira and his . Objective Scheduled Meds PRN Meds Infusions acetaminophen, 1,000 mg, oral, Q6H acyclovir, 400 mg, oral, BID cholecalciferol, 5,000 Units, oral, QAM dilTIAZem XR, 240 mg, oral, BID gabapentin, 600 mg, oral, TID insulin lispro, 0-4 Units, subcutaneous, Nightly insulin lispro, 0-5 Units, subcutaneous, TID with meals levETIRAcetam, 1,000 mg, oral, BID miconazole, , topical, BID pantoprazole DR, 40 mg, oral, Daily senna-docusate, 2 tablet, oral, BID sulfamethoxazole-trimethoprim, 160 mg of trimethoprim, oral, BID tamsulosin, 0.8 mg, oral, Daily with dinner bisacodyL, 10 mg, rectal, Daily PRN cyclobenzaprine, 5 mg, oral, TID PRN dextrose, 15 g, oral, Q15 Min PRN OR dextrose, 250 mL, intravenous, Q15 Min PRN glucagon, 1 mg, intramuscular, Q30 Min PRN heparin, 2,000 Units, intravenous, Q6H PRN OR heparin, 3,000 Units, intravenous, Q6H PRN ondansetron ODT, 4 mg, oral, Q6H PRN OR ondansetron, 4 mg, intravenous, Q6H PRN oxyCODONE, 5 mg, oral, Q4H PRN ramelteon, 8 mg, oral, Nightly PRN traZODone, 50 mg, oral, Nightly PRN heparin, 0-33 Units/kg/hr Vitals Most Recent Vitals: T 37.2 ??C (98.9 ??F), HR 70, BP 104/64, RR 18, SpO2 99 %. 24hr Min/Max: Temp Min: 36.7 ??C (98.1 ??F) Max: 37.6 ??C (99.6 ??F) Pulse Min: 70 Max: 87 BP Min: 104/64 Max: 122/70 Resp Min: 18 Max: 18 SpO2 Min: 99 % Max: 100 % Intake/Output Summary (Last 24 hours) at 11/30/2023 1156 Last data filed at 11/29/2023 1856 Gross per 24 hour Intake -- Output 225 ml Net -225 ml Physical Exam GENERAL: lying supine in bed, no acute distress PULM: breathing comfortably on room air ABD: not distended EXTR: wwp NEURO: alert, oriented to person, place, situation and time Lines, Drains, Airways Peripheral IV 11/29/23 20 G Distal;Posterior;Right Forearm (Active) External Urinary Catheter (Active) Labs/Diagnostic Review Na 132 Cl 98 BUN 27 K 4.7 CO2 22 Cr 0.86 Mg 2.1, G AST 61 ALT 77 Alk Phos 140 Ca 8.6 TP - Alb 2.7 Total Bili: 0.2 Direct Bili: <0.2 \ Hgb 7.3 / WBC 6.2 -------- Plt 158 / MCV 94.1 \ INR 1.04 (Labs above are the most recent result obtained in the last 24 hours. For additional labs/trends, see Epic.) I have reviewed the laboratory results. Imaging Review CT Abdomen Pelvis W Contrast Result Date: 11/30/2023 1. Somewhat limited evaluation of the systemic [...] Doppler studies to confirm presence of clot withinthe common femoral veins. No definite involvement of [...] A left ureteral stent is in place. Electronically signed by: Jorge Mayo M.D., Ph.D Assessment/Plan * DVT (deep venous thrombosis) ([facility]) ([facility]) Assessment & Plan Patient with complex history with cardiac arrest [...] DVTs from groin on down - Vascular and Hematology consults - Scrotal sling for support, q4 neurochecks, neurovascular checks - Plan to initiate heparin drip, no initial bolus - Patient and counseled on warning symptoms for bleeding Paraspinal hematoma Assessment & Plan - Occurred on therapeutic anticoagulation in setting of recent lumbar decompression, with subsequent LE paralysis and emergent hematoma evacuation on 11/07 - Directly-admitted from [facility] - PT/OT - Orthopedics following - had sutures removed on 11/30 - note had some drainage from sutures, plan 7-10d course SSTI antibiotics using Bactrim for now Prediabetes Assessment & Plan - Was on mounjaro as outpatient - has required intermittent SSI at [facility] - Diabetic diet, SSI ordered Seizure ([facility]) Assessment & Plan - Patient developed reported seizure on 10/23 during or prior to cardiac arrest with bilateral SDH noted on imaging - placed on keppra through follow-up with NSGY next month Scrotal swelling Assessment & Plan - In setting of presumed DVT - no evidence of infection on exam - Scrotal Sling - Maintain harris catheter - DVT mgt per above Lower extremity edema Assessment & Plan - Eval/mgt per above - obtain pBNP as well Elevated transaminase level Assessment & Plan - AST 65, ALT 80, new - Unclear etiology at this time - possibly from IVC compression/distention in setting of potential thrombi? - If ongoing elevation - consider liver US this admission Hyponatremia Assessment & Plan - Na low 130s over the past week - Check Sosm, Uosm, Stephanie - CTM Anemia Assessment & Plan - Stable Hgb ~8 - Maintain Hgb > 7 Paralysis of both lower limbs (CMS/HCC) ([facility]) Assessment & Plan - Patient with paralysis of LE following recent spinal hematoma s/p emergent evacuation on 11/07 - Ongoing 11/09 strength of LE, sensation intact - Fall precautions Pulmonary embolism ([facility]) Assessment & Plan - Eval/mgt per above UTI (urinary tract infection) Assessment & Plan - Patient diagnosed with UTI in setting of harris catheter on 11/21 with growth of Enterobacter cloacae (S - bactrim, macrobid, cefepime) - he denies symptoms, though was noted to have leukocytosis that has improved - Continue antibiotics at this time until urology evaluation (due for catheter exchange during thisadmission) Hydronephrosis with urinary obstruction due to renal calculus Assessment & Plan - Patient with noted progressed hydronephrosis during CT this month in setting of ureteral stones - No urinary retention or abd/back pain at this time - Obtain UA/micro - urology consulted, appreciate recommendations - has been on Macrobid, stopped in favor of Bactrim to also cover SSTI of back Prostate cancer ([facility]) Assessment & Plan - s/p prostatectomy HTN (hypertension) Assessment & Plan - Cont diltiazem - home ARB has been on hold at [facility] - continue to hold here initially Code status : Full Code Diet : Adult Diet Restricted; Consistent Carbohydrate PT/OT Dispo Rec : / Supplementary Attestation Today, I am treating the patient for dvts which is in severe exacerbation, progression, or experiencing treatment side effects as evidenced by above and, as described in the note. Reviewed records from the following unique sources (external institutions or providers from different services): ortho c/s note from yesterday. Discussed management of back infection with orthopedics. The patient is being intensively monitored for drug toxicity from iv heparin drip. Vibha Ramirez MD OFF WORKER * Norberto Silverman MD - 11/30/2023 5:54 AM CST Vascular Surgery Daily Progress Patient Name/MRN: Hira Evans [id number] Treatment Team: Vascular Surgery- Pager: [phone] Attending: Nicolas Dobbs* Today's Date: 12/01/2023 Room/Bed: [id number] Admit Date: 11/29/2023 Code Status: Full Code Subjective Chief complaint: bilateral lower extremity DVTs Events During This Hospitalization: 73yoM with hx recent L4-5 PSF (10/23/23) c/b postop cardiac arrest and bilateral PE on AC c/b spinal hematoma requiring emergent decompression (11/08/22) resulting in BLE paraplegia s/p IVC filter (11/09) now re-admitted from [facility] w/ concern for extensive bilateral DVT on [facility] duplex. Events Over Last 24 Hours: - Ortho ok with anticoagulation - No acute events overnight No Known Allergies Current Facility-Administered Medications Medication Dose Route Frequency Provider Last Rate Last Admin acetaminophen (TYLENOL) tablet 1,000 mg 1,000 mg oral Q6H Errol Escobar MD 1,000 mg at 11/30/232047 acyclovir (ZOVIRAX) tablet 400 mg 400 mg oral BID Errol Escobar MD 400 mg at 11/30/232047 bisacodyL (DULCOLAX) suppository 10 mg 10 mg rectal Daily PRN Errol Escobar MD cholecalciferol (VITAMIN D-3) capsule 5,000 Units 5,000 Units oral QAM Errol Escobar MD 5,000 Units at 11/30/23 0801 cyclobenzaprine (FLEXERIL) tablet 5 mg 5 mg oral TID PRN Errol Escobar MD dextrose gel in packet 15 g 15 g oral Q15 Min PRN Errol Escobar MD Or dextrose (D10W) 10% bolus 250 mL 250 mL intravenous Q15 Min PRN Errol Escobar MD dilTIAZem XR (CARDIZEM CD,DILACOR XR) 24 hour capsule 240 mg 240 mg oral BID Errol Escobar MD 240 mg at 11/30/232047 gabapentin (NEURONTIN) tablet 600 mg 600 mg oral TID Errol Escobar MD 600 mg at 11/30/232047 glucagon injection 1 mg 1 mg intramuscular Q30 Min PRN Errol Escobar MD heparin 1,000 unit/mL injection 2,000 Units 2,000 Units intravenous Q6H PRN Vibha Ramirez MD Or heparin 1,000 unit/mL injection 3,000 Units 3,000 Units intravenous Q6H PRN Vibha Ramirez MD 3,000 Units at 11/30/232230 heparin in 0.9% sodium chloride 25,000 unit/250 mL infusion (premix) 0-33 Units/kg/hr intravenous Titrated Vibha Ramirez MD 12.24 mL/hr at 11/30/232230 15 Units/kg/hr at 11/30/232230 insulin lispro (HumaLOG, ADMELOG) 100 unit/mL injection 0-4 Units 0-4 Units subcutaneous Nightly Errol Escobar MD insulin lispro (HumaLOG, ADMELOG) 100 unit/mL injection 0-5 Units 0-5 Units subcutaneous TID with meals Errol Escobar MD levETIRAcetam (KEPPRA) tablet 1,000 mg 1,000 mg oral BID Errol Escobar MD 1,000 mg at 11/30/232047 miconazole 2 % powder topical BID Errol Escobar MD Given at 11/30/232047 ondansetron ODT (ZOFRAN-ODT) disintegrating tablet 4 mg 4 mg oral Q6H PRN Errol Escobar MD Or ondansetron (ZOFRAN) injection 4 mg 4 mg intravenous Q6H PRN Errol Escobar MD oxyCODONE (ROXICODONE) tablet 5 mg 5 mg oral Q4H PRN Errol Escobar MD pantoprazole DR (PROTONIX) extended release tablet 40 mg 40 mg oral Daily Errol Escobar MD 40 mg at 11/30/23 0802 ramelteon (ROZEREM) tablet 8 mg 8 mg oral Nightly PRN Errol Escobar MD 8 mg at 11/30/232132 senna-docusate (PERICOLACE) 8.6-50 mg per tablet 2 tablet 2 tablet oral BID Errol Escobar MD 2 tablet at 11/30/232046 sulfamethoxazole-trimethoprim (BACTRIM DS) 800-160 mg per tablet 160 mg of trimethoprim 160 mg of trimethoprim oral BID Vibha Ramirez MD 160 mg of trimethoprim at 11/30/238 tamsulosin (FLOMAX) extended release capsule 0.8 mg 0.8 mg oral Daily with dinner Errol Escobar MD 0.8 mg at 11/30/23 1702 traZODone (DESYREL) tablet 50 mg 50 mg oral Nightly PRN Vibha Ramirez MD Objective Vitals: 24hr Min/Max: Temp Min: 36.4 ??C (97.6 ??F) Max: 36.7 ??C (98.1 ??F) Pulse Min: 63 Max: 74 BP Min: 104/61 Max: 113/67 Resp Min: 18 Max: 18 SpO2 Min: 96 % Max: 100 % Most Recent : Vitals: 12/01/23 0430 BP: 104/61 Pulse: 69 Resp: 18 Temp: 36.4 ??C (97.6 ??F) SpO2: 100% No intake/output data recorded. No intake/output data recorded. Physical Exam: General: alert, voice strong, clear speech HEENT: moist mocosa, EOM intact, pupils equally round and reactive to light CV: normal rhythm, normal rate Pulmonary: unlabored breathing, symmetric chest rise Abdominal: soft, nondistended Groin: +significant scrotal edema; harris with purulent discharge around catheter Psychiatric: normal mood/affect Neurologic: alert and oriented x3; BLE paralysis Ext: pink and warm, 2+ lower extremity edema to hips Skin: dry, no cyanosis, no rashes or cutaneous lesions, no ulcers or trophic skin change Pulses: Right Radial: palpable Right Femoral: palpable Right DP: palpable Right PT: palpable Left Radial: palpable Left Femoral: palpable Left DP: palpable Left PT: palpable Lab/Radiology/Diagnostic Review: Laboratory review: Lab results in the last 24 hours: Recent Results (from the past 24 hour(s)) POCT glucose Collection Time: 11/30/23 7:51 AM Result Value Ref Range Glucose, POC 126 70 - 199 mg/dL aPTT Collection Time: 11/30/23 11:16 AM Result Value Ref Range aPTT 28 28 - 38 sec POCT glucose Collection Time: 11/30/23 11:59 AM Result Value Ref Range Glucose, POC 115 70 - 199 mg/dL Urinalysis reflex to microscopic and culture Urine, clean voided Collection Time: 11/30/23 2:48 PM Specimen: Urine, clean voided Result Value Ref Range Color, ur Yellow Yellow Clarity, ur Cloudy (A) Clear Specific gravity, ur 1.029 1.003 - 1.030 pH, urine 6.5 Protein, ur ql 1+ (A) Negative Glucose, ur ql Negative Negative Ketones, ur Negative Negative Bilirubin, ur Negative Negative Blood, ur 1+ (A) Negative Urobilinogen, ur <2.0 <2.0 mg/dL Nitrite, ur Negative Negative Leukocyte esterase, ur 3+ (A) Negative UA reflex comment Reflex to microscopic UA will be performed. Urinalysis, microscopic only Collection Time: 11/30/23 2:48 PM Result Value Ref Range WBC, ur >50 (A) 0 - 5 /HPF RBC, ur 21-50 (A) 0 - 2 /HPF Epithelial cells, squamous, ur 11-20 (A) 0 - 5 /HPF Bacteria, ur 1+ (A) Yeast, ur 1+ (A) Mucous, ur Present (A) Culture Reflex Comment Reflex to urine culture will be performed. POCT glucose Collection Time: 11/30/23 4:22 PM Result Value Ref Range Glucose, POC 138 70 - 199 mg/dL aPTT Collection Time: 11/30/23 8:44 PM Result Value Ref Range aPTT 28 28 - 38 sec POCT glucose Collection Time: 11/30/23 8:46 PM Result Value Ref Range Glucose, POC 122 70 - 199 mg/dL Imaging review: I have reviewed the result(s) below. CT ABDOMEN PELVIS W CONTRAST 11/30/2023 Narrative EXAMINATION: Computed tomography of the abdomen and pelvis with intravenous contrast HISTORY: Evaluate for deep venous thrombosis. TECHNIQUE: Transaxial computed tomographic images of the abdomen and pelvis were obtained with intravenous contrast according to the venogram protocol after the uneventful administration of 88 mL Opti-Ray 350 intravenous contrast. COMPARISON: 11/19/2023 FINDINGS: Limited views of the thorax are provided. There is slight motion artifact. There is a inferior vena cava filter seen at the level just below the renal veins. There is low attenuation associated with the IVC filter that extends inferiorly within the IVC and also appears to extend into the internal and external iliac vasculature bilaterally there is suggestion that they are are filling defects with in bilateral common femoral veins. Overall this is suspicious for extensive clot burden. No definite clot is seen within the renal veins. Recommend correlation with the findings from ultrasound. It is somewhat difficult to evaluate clot burden given the timing of the contrast. Limited views of the thorax are provided. No suspicious findings on limited views of the thorax. Study slightly limited by motion artifact. No suspicious pulmonary nodules or masses. Scattered atelectasis is seen. No pneumothorax or pleural effusion. The heart size is normal. Trace pericardial effusion. There is diffuse body wall edema. Scattered cysts are seen within the liver. No suspicious focal hepatic lesion. Gallbladder normal. There is suggestion of periportal space widening which can be seen in the setting of hepatic fibrosis. The right hemiliver appears somewhat atrophic. No bile duct dilation. Pancreas normal. Spleen normal. Interval decrease in size of the subcapsular fluid in the left kidney. There are too small to characterize hypoattenuating lesion seen within the right kidney which are unchanged. No suspicious focal renal lesion. There is a left-sided ureteral stent which terminates in the extrarenal pelvis on the left in the urinary bladder. There is a prominent extrarenal pelvis with unchanged mild hydronephrosis. Contrast is seen within the collecting systems in keeping with the timing of the contrast. Urinary bladder is decompressed. As a Harris catheter in place. Prostatectomy changes are noted. The appendix is not readily identified. No appendiceal inflammation. No suspicious bowel wall thickening. No evidence of bowel obstruction. Limited evaluation the portal venous vasculature given the timing of the contrast. The aorta is normal in caliber. Scattered vascular calcifications are seen. Trace free fluid is seen within the intraperitoneal cavity. There is no free intraperitoneal fluid or gas. Large bilateral hydroceles. There is extensive body wall edema, increased since the prior examination, and there is suggestion of collateral vessels in the subcutaneous fat of the anterior abdominal wall. Postsurgical changes of posterior decompression with instrumented spinal fusion are seen within the lumbar spine. The appearance is overall similar when compared to the prior examination. Degenerative changes are seen in the spine. No suspicious lytic or blastic osseous lesions. Impression 1. Somewhat limited evaluation of the systemic [...] A left ureteral stent is in place. Electronically signed by: Jorge Mayo M.D., Ph.D US VEIN DUPLEX LOWER EXTREMITY BILATERAL COMPLETE 11/30/2023 (Preliminary) This result has not been signed. Information might be incomplete. Narrative [facility] - Department of Vascular Surgery, Vascular Laboratory [address] [place] [address] Lower Extremity Venous Ultrasound Report Preliminary Patient Name: HIRA EVANS : 1950 (73y 5m) Study Date: 11/30/2023 7:23:48 AM Gender: M Tech: Location: [id number] Ref Provider: ERROL ESCOBAR Quality: Adequate Order Provider: ERROL ESCOBAR 73yoM with hx recent L4-5 PSF (10/23/23) c/b postop cardiac arrest and bilateral PE on AC c/b spinal hematoma requiring emergent decompression (11/08/22) resulting in BLE paraplegia s/p IVC filter (11/09) now re-admitted from [facility] w/ concern for extensive bilateral DVT on [facility] duplex. PROCEDURES: Vascular Report: Venous Duplex imaging was performed bilaterally in the lower extremities. The common femoral, femoral, popliteal, posterior tibial, peroneal veins were evaluated for patency, spontaneity and phasicity with Doppler, compression and augmentation maneuvers. Great saphenous vein proximal at the junction was evaluated with compression maneuvers. INDICATIONS: Swelling lower extremity, bilateral. FINDINGS: Performing Dust Mixer: Josiane Chance RVT. Right: Duplex scan reveals dilated vein with [...] Unable to visualize the bilateral iliac veins. Provider Notification: Results called on the above date to Vibha Ramirez MD. Time called 08:00. CONCLUSIONS: 1. There is acute deep vein thrombosis in the bilateral lower extremities involving vein(s) as noted above. HISTORY: HTN, DVT, PE, Cancer, IVC filter, former smoker. PREVIOUS STUDIES: Previous study performed on 11/08/23 negative. DISCLAIMER: The study images and the final report will be retained in the patient chart by the Vascular Laboratory for the legally required time period. This chart constitutes the legal record of any testing performed. ATTESTATION: Electronically Signed By: 2023-11-30 07:55:07 BOIL OFF WORKER Assessment/Plan Principal Problem: DVT (deep venous thrombosis) (CMS/HCC) (HCC) Active Problems: HTN (hypertension) Prostate cancer (HCC) Hydronephrosis with urinary obstruction due to renal calculus UTI (urinary tract infection) Pulmonary embolism (HCC) Paralysis of both lower limbs (CMS/HCC) (HCC) Anemia Paraspinal hematoma Hyponatremia Elevated transaminase level Lower extremity edema Scrotal swelling Seizure (HCC) Prediabetes 73yoM with hx recent L4-5 PSF (10/23/23) c/b postop cardiac arrest and bilateral PE on AC c/b spinal hematoma requiring emergent decompression (11/08/22) resulting in BLE paraplegia s/p IVC filter (11/09) now re-admitted from [facility] w/ concern for extensive bilateral DVT on [facility] duplex. Plan - Ortho spine ok with anticoagulation - Start heparin gtt - Continue to monitor Norberto Craig MD PGY-2 General Surgery Vascular Consult Vascular Inpatient Floor Vascular Outpatient Clinic Cosigned by Marcial Barron MD at 12/04/2023 12:39 PM BOIL OFF WORKER OFF WORKER OFF WORKER documented in this encounter H&P Notes * Errol Escobar MD - 11/29/2023 5:32 PM CST History and Physical Division of [facility] Medicine Name: Hira Evans : 1950 Today's Date: November 29, 2023 Age: 73 y.o. male Admit Date: 11/29/2023 Bed: [id number] LOS: 0 days Subjective Hira Evans is a 73 y.o. male with chief complaint of DVT. MICHAEL Evans is a 73yoM with PMH Lumbar Disc Herniation s/p decompression surgery 10/2023 c/b cardiac arrest post-op and hematoma s/p evacuation (11/07/23) with resulting LE paralysis, DVT/PE s/p IVCfilter (not on A/C currently), HTN, prediabetes presenting with DVT. Patient has a recent complex history with admission in 10/2023 for complex UTI requiring L percutaneous nephrostomy with subsequent lithotripsy and ureteral stent placement with nephrostomy removal -patient developed perinephric hematoma post-intervention. He additionally had known lumbar radiculopathy due to L4/5 disc herniation and went to the OR on 10/23 for planned L4-5 spinal decompression and fusion. In the PACU he developed cardiac arrest with ROSC and subsequent finding of small, bilateral SDH and acute PE over the distal R and L main pulm arteries with extension in all lobar arteries. He was stabilized in the ICU and transitioned to lovenox on discharge on 10/30/23. After discharge he developed progressive LE weakness found to have a hematoma extending from T5-L5 requiring emergent evacuation and lumbar repair on 11/07. LE Duplex was negative for DVT on 11/08. His anticoagulation was held and he had an IVC filter placed on 11/09. Hematology followed during hisstay and recommended holding anticoagulation until POD 21 (11/29). He was subsequently discharged to [facility] on 11/16. He required ED visit on 11/19 for traumatic harris placement requiring urology harris placement over a wire. He had a CT during the encounter revealing interval decreased size of left perinephric hematoma with new left hydronephrosis with stones in the left proximal ureter with L double J stent in place (unclear of efficacy based on imaging); he was subsequently discharged back to [facility]. Of note hehad a urine culture on 11/21 that was positive for Enterobacter cloacae (S - bactrim, macrobid, cefepime) - obtained due to worsening leukocytosis. He has been on macrobid since with interval resolution of leukocytosis and no urinary complaints at this time. He reports progressive LE edema over the past 10days with escalation now up to his abdomen - over the past two days he has had marked edema of his scrotum without pain/erythema or tenderness. He denies numbness over feet or color changes/coolness. He reports normal UOP in his harris. He denies fever, chills, nausea/vomiting, chest pain, dyspnea, cough, abdominal pain, constipation, hematochezia/melena, hematuria. He does have mild loose stools in setting of ongoing stool regimen at [facility]. He reports minimal improvement in his LE weakness. Given his edema he underwent a LE Duplex on 11/23 at [facility] that revealed DVTs over the bilateral SFjunctions, bilateral common femoral, bilateral proximal and mid femoral, right popliteal, and rightposterior tibial veins (imaging note available for review in system). Given ongoing progression of edema he was directly admitted for hematology and vascular surgery evaluation. He arrived to the floor HD stable. I have reviewed and summarized prior records in [facility], [facility], and [facility] Everywhere. Review of Systems All other systems were reviewed and are negative except for that which is listed in the History of Present Illness. Past Medical History Past Medical History: Diagnosis Date Allergic rhinitis Arthritis OA Cancer (CMS/HCC) (HCC) prostate and melonomia Cauda equina compression (HCC) DVT (deep venous thrombosis) (CMS/HCC) (HCC) Gastric reflux GERD (gastroesophageal reflux disease) History of melanoma Hypertension Kidney stone Personal history of prostate cancer Pneumonia Pulmonary embolism (HCC) Seasonal allergies Past Surgical History: Procedure Laterality Date FL UPPER GI AIR CONTRAST W KUB Left 09/21/2023 INSERT VENA CAVA FILTER N/A 11/09/2023 JOINT REPLACEMENT Right 2014 right knee replacement MELANOMA RESECTION Right 2006 right flank PERCUTANEOUS NEPHROSTOMY PCN LEFT Left 10/14/2023 PROSTATECTOMY 2009 REPLACEMENT TOTAL KNEE Left 10/17/2021 REVISION TOTAL KNEE ARTHROPLASTY Right 09/30/2019 VASECTOMY 30 years ago No current facility-administered medications on file prior to encounter. Current Outpatient Medications on File Prior to Encounter Medication Sig acetaminophen 500 mg capsule Take 2 capsules (1,000 mg total) by mouth every 6 (six) hours acyclovir (ZOVIRAX) 400 mg tablet Take 1 tablet (400 mg total) by mouth 2 (two) times a day bisacodyL (DULCOLAX) 10 mg suppository Insert 1 suppository (10 mg total) into the rectum daily cephalexin (KEFLEX) 500 mg capsule Take 1 capsule (500 mg total) by mouth daily as needed (30 minutes prior to dental appt) When pt has procedures gets pre antibiotic r/t history knee replacements cholecalciferol (VITAMIN D-3) 5,000 unit capsule Take 1 capsule (5,000 Units total) by mouth every morning cyclobenzaprine (FLEXERIL) 5 mg tablet Take 1 tablet (5 mg total) by mouth 3 (three) times a day asneeded for muscle spasms DILT-XR 240 mg 24 hr capsule Take 1 capsule (240 mg total) by mouth 2 (two) times a day gabapentin (NEURONTIN) 300 mg capsule Take 1 capsule (300 mg total) by mouth every 8 (eight) hours (Patient taking differently: Take 2 capsules (600 mg total) by mouth 3 (three) times a day) levETIRAcetam (KEPPRA) 1,000 mg tablet Take 1 tablet (1,000 mg total) by mouth 2 (two) times a day loratadine (CLARITIN) 10 mg tablet Take 1 tablet (10 mg total) by mouth daily Mounjaro 10 mg/0.5 mL pen injector Inject 10 mg under the skin once a week Sunday nitrofurantoin monohydrate (MACROBID) 100 mg capsule Take 1 capsule (100 mg total) by mouth 2 (two)times a day nystatin powder Apply 1 Application topically 2 (two) times a day omeprazole (PriLOSEC) 20 mg capsule Take 1 capsule (20 mg total) by mouth every morning psyllium husk, with dextrose, 3.4 gram/ 6.5 gram powder Take 3.4 mg by mouth daily senna-docusate (PERICOLACE) 8.6-50 mg Take 2 tablets by mouth 2 (two) times a day tamsulosin (FLOMAX) 0.4 mg extended release capsule Take 2 capsules (0.8 mg total) by mouth daily with dinner traMADoL (ULTRAM) 50 mg tablet Take 1 tablet (50 mg total) by mouth every 4 (four) hours as needed for pain [DISCONTINUED] cetirizine (ZyrTEC) 10 mg tablet Take 1 tablet (10 mg total) by mouth azure principal solution specialist before breakfast [DISCONTINUED] coenzyme Q10 100 mg capsule Take 1 capsule (100 mg total) by mouth azure principal solution specialist before breakfast [DISCONTINUED] enoxaparin (LOVENOX) 40 mg/0.4 mL syringe Inject 0.4 mL (40 mg total) under the skindaily Prophylactic dosing only for lovenox until follow-up with hematology outpatient [DISCONTINUED] irbesartan (AVAPRO) 150 mg tablet Take 1 tablet (150 mg total) by mouth every morning No Known Allergies Social and Family History Social History Tobacco Use Smoking status: Former Packs/day: 1.00 Years: 8.00 Additional pack years: 0.00 Total pack years: 8.00 Types: Cigarettes Start date: 11/05/1968 Quit date: 11/05/1979 Years since quittin.0 Passive exposure: Past Smokeless tobacco: Never Substance and Sexual Activity Drug use: Yes Frequency: 7.0 times per week Types: Medical marijuana Comment: MJ = edibles daily for pain; Alcohol = 2 glasses of wine per evening Sexual activity: Yes Partners: Female control/protection: Vasectomy Alcohol Use: Not At Risk (10/23/2023) AUDIT-C Frequency of Alcohol Consumption: 4 or more times a week Average Number of Drinks: 1 or 2 Frequency of Binge Drinking: Never Family History Problem Relation Age of Onset Heart disease Mother Lung disease Mother Alcohol abuse Father Cancer Father Heart disease Other Family history of cardiac disorder - (Added by PERLA Conv) Cancer Other Family history of malignant neoplasm - (Added by PERLA Conv) Anesthesia problems Neg Hx Objective Vitals Most Recent Vitals: T 37.6 ??C (99.6 ??F), HR 87, BP 117/63, RR 18, SpO2 100 %. 24hr Min/Max: Temp Min: 36.7 ??C (98.1 ??F) Max: 37.6 ??C (99.6 ??F) Pulse Min: 72 Max: 87 BP Min: 117/63 Max: 122/70 Resp Min: 18 Max: 18 SpO2 Min: 100 % Max: 100 % Intake/Output Summary (Last 24 hours) at 11/29/2023 2313 Last data filed at 11/29/2023 1856 Gross per 24 hour Intake -- Output 225 ml Net -225 ml Physical Exam General: alert, calm, no acute distress HEET: Normocephalic, PERRL, EOMi, sclerae anicteric, No rhinorrhea, MMM with no oral lesions Neck: Supple Cardiovascular: Regular rate and rhythm with no murmur, rub, or gallop Pulm: Clear to ausculation bilaterally Abdomen: Edema present over lower quadrants; distended, Bowel Sounds (+), No hepatosplenomegaly, Norebound Back: Stitches present over spine that are C/D/I. : markedly swollen scrotum without tenderness - harris catheter in place Extremities: Warm, dry with no cyanosis - marked edema that extends to mid- abdomen - distal pulses intact Skin: No observable rashes on exam Neuro: A&Ox3, CN II-XII intact, 1/5 strength bilateral LE - 5/5 strength UE and sensation intact in all extremities Psych: Normal mood and affect Lines, Drains, Airways Peripheral IV 11/29/23 20 G Distal;Posterior;Right Forearm (Active) External Urinary Catheter (Active) Labs/Diagnostic Review Na 133 Cl 99 BUN 29 K 4.5 CO2 24 Cr 0.94 Mg -, G AST 65 ALT 80 Alk Phos 139 Ca 8.9 TP - Alb 2.8 Total Bili: 0.4 Direct Bili: - \ Hgb 7.7 / WBC 8.1 -------- Plt 150 / MCV 95.2 \ INR - (Labs above are the most recent result obtained in the last 24 hours. For additional labs/trends, see Epic.) I have reviewed the laboratory results. Imaging Review No results found. Assessment/Plan * DVT (deep venous thrombosis) (CMS/HCC) (HCC) Assessment & Plan - Patient with complex history with cardiac arrest 10/23 post-op, found to have extensive PE, initiated on anticoagulation with subsequent paraspinal hematoma requiring emergent evacuation on 11/07 with subsequent discontinuation of anticoagulation and IVC filter placement. Now presenting with subacute, progressive LE edema now involving his abdomen and scrotum with 11/23 LE Duplex with extensiveDVTs bilaterally. He is directly admitted here for vascular surgery and hematology evaluation. - Arrived here HD stable with warm extremities and brisk distal pulses. Obtain LE duplex here givenresults not in system from [facility] and basic labs. - Vascular and Hematology consults. Will discuss with ortho team regarding appropriateness of re-initiating anticoagulation given new/acute findings. - Scrotal sling for support, q4 neurochecks, neurovascular checks UTI (urinary tract infection) Assessment & Plan - Patient diagnosed with UTI in setting of harris catheter on 11/21 with growth of Enterobacter cloacae (S - bactrim, macrobid, cefepime) - he denies symptoms, though was noted to have leukocytosis that has improved - Continue antibiotics at this time until urology evaluation (due for catheter exchange during thisadmission) Lower extremity edema Assessment & Plan - Eval/mgt per above - obtain pBNP as well HTN (hypertension) Assessment & Plan - Cont diltiazem - home ARB has been on hold at [facility] - continue to hold here initially Prediabetes Assessment & Plan - Was on mounjaro as outpatient - has required intermittent SSI at [facility] - Diabetic diet, SSI ordered Seizure (HCC) Assessment & Plan - Patient developed reported seizure on 10/23 during or prior to cardiac arrest with bilateral SDH noted on imaging - placed on keppra through follow-up with NSGY next month Scrotal swelling Assessment & Plan - In setting of presumed DVT - no evidence of infection on exam - Scrotal Sling - Maintain harris catheter - DVT mgt per above Elevated transaminase level Assessment & Plan - AST 65, ALT 80, new - Unclear etiology at this time - possibly from IVC compression/distention in setting of potential thrombi? - If ongoing elevation - consider liver US this admission Hyponatremia Assessment & Plan - Na low 130s over the past week - Check Sosm, Uosm, Stephanie - CTM Paraspinal hematoma Assessment & Plan - Occurred on therapeutic anticoagulation in setting of recent lumbar decompression, with subsequent LE paralysis and emergent hematoma evacuation on 11/07 - Directly-admitted from [facility] - PT/OT - Multidisciplinary discussion regarding anticoagulation with above DVTs Anemia Assessment & Plan - Stable Hgb ~8 - Maintain Hgb > 7 Paralysis of both lower limbs (CMS/HCC) ([facility]) Assessment & Plan - Patient with paralysis of LE following recent spinal hematoma s/p emergent evacuation on 11/07 - Ongoing 1/ strength of LE, sensation intact - Fall precautions Pulmonary embolism ([facility]) Assessment & Plan - Eval/mgt per above Hydronephrosis with urinary obstruction due to renal calculus Assessment & Plan - Patient with noted progressed hydronephrosis during CT this month in setting of ureteral stones - No urinary retention or abd/back pain at this time - Obtain UA/micro - check Renal US for trend - Urology consult Prostate cancer ([facility]) Assessment & Plan - s/p prostatectomy Code status : Full Code Diet : Adult Diet Restricted; Consistent Carbohydrate Supplementary Attestation The total encounter time on this service date was 150 minutes which was spent performing a [id number] encounter and personally completing the provider-level activities documented in the note. This includes time spent prior to the visit and after the visit in direct care of the patient. This time does not include time spent in any separately reportable services. Errol Escobar MD Addendum Discussed with ortho-spine attending and hematology. There is hesitancy to start anticoagulation given recent spinal hemorrhage, though given rapid-progression of DVTs and associated edema there is concern for ongoing progression and potential ischemic congestion. Hematology recommends no-bolus heparin administration, ortho-spine is agreeable if recommended given POD 21. On encounter family was hesitant to start anticoagulation, though report will likely be amenable with plan to discuss again in the AM. Will order venogram per vascular recs. LE venous duplex pending. OFF WORKER OFF WORKER OFF WORKER documented in this encounter Consult Notes * Tyrone Martínez MD - 12/04/2023 7:08 PM CSTAssociated Order(s): CONSULT TO PM&R PHYSICIAN Patient Name: HIRA EVANS Medical Record Number (MRN): [id number] Date of (): 1950 Encounter Date: 11/28/2023 Date of Service: 12/05/23 Physical Medicine and Rehabilitation Initial Consultation Chief Complaint Epidural/subdural hematoma s/p T5-L5 laminectomy and hematoma evacuation, BLE DVT c/b severe edema Patient was seen with and 2 family friends, who also provided history. They were counseled on post-acute rehabilitative management options in addition to the patient. History of Present Illness: This is a 73 y.o. male with PMH of recent L4-5 PSF c/b post-op cardiac arrest, rib fractures from CPR, and b/l PE on therapeutic anticoagulation, GERD, CKD, b/l total kneereplacements, melanoma, and prostate CA s/p prostatectomy, who was admitted to [facility] on 11/29/2023 forsudden onset BLE numbness and inability to ambulate consistent with cauda equina syndrome, who was found to have dorsal epidural and subdural hematoma from T5-S1. Patient underwent T5-L5 laminectomy and hematoma evacuation with Dr. Vu. He had IVC filter placed. His course was complicated by ABLA, s/p 4u pRBC. Hematology recommended holding off anticoagulation for 2 weeks. Patient was discharged to [facility] where he had good participation with therapy, but was found to haveBLE DVT (extensive - from groin down) and worsening BLE edema which interfered with participation in therapy. He was transferred back to [facility] where he ws initiated on heparin gtt with plan to transition to lovenox BID. This physiatric consultation has been requested to advise on spinal cord injury and disposition. The patient has undergone therapy evaluation and found to need inpatient rehabilitation. Subjective: Patient feels well and motivated to get back to rehab. He notes that he still needs to get his power wheel chair. He and his think his home may need some modifications before he is ready to return home. No Known Allergies Past Medical History: Diagnosis Date Allergic rhinitis Arthritis OA Cancer (CMS/HCC) (HCC) prostate and melonomia Cauda equina compression (HCC) DVT (deep venous thrombosis) (CMS/HCC) (HCC) Gastric reflux GERD (gastroesophageal reflux disease) History of melanoma Hypertension Kidney stone Personal history of prostate cancer Pneumonia Pulmonary embolism (HCC) Seasonal allergies Past Surgical History: Procedure Laterality Date FL UPPER GI AIR CONTRAST W KUB Left 09/21/2023 INSERT VENA CAVA FILTER N/A 11/09/2023 JOINT REPLACEMENT Right 2014 right knee replacement MELANOMA RESECTION Right 2006 right flank PERCUTANEOUS NEPHROSTOMY PCN LEFT Left 10/14/2023 PROSTATECTOMY 2009 REPLACEMENT TOTAL KNEE Left 10/17/2021 REVISION TOTAL KNEE ARTHROPLASTY Right 09/30/2019 VASECTOMY 30 years ago Family History Problem Relation Age of Onset Heart disease Mother Lung disease Mother Alcohol abuse Father Cancer Father Heart disease Other Family history of cardiac disorder - (Added by TW Conv) Cancer Other Family history of malignant neoplasm - (Added by TW Conv) Anesthesia problems Neg Hx Social History Tobacco Use Smoking status: Former Packs/day: 1.00 Years: 8.00 Additional pack years: 0.00 Total pack years: 8.00 Types: Cigarettes Start date: 11/05/1968 Quit date: 11/05/1979 Years since quittin.1 Passive exposure: Past Smokeless tobacco: Never Substance and Sexual Activity Drug use: Yes Frequency: 7.0 times per week Types: Medical marijuana Comment: MJ = edibles daily for pain; Alcohol = 2 glasses of wine per evening Sexual activity: Yes Partners: Female control/protection: Vasectomy Alcohol Use: Not At Risk (10/23/2023) AUDIT-C Frequency of Alcohol Consumption: 4 or more times a week Average Number of Drinks: 1 or 2 Frequency of Binge Drinking: Never Social History: Living Situation: -Type of Dwellin-level, navigable by wheelchair -Steps to Enter/navigate home: 2 steps -Lives With: , neighbors available to help Pre-hospitalization Function Independent Current Functional Status Mod-max assist with mobility, mod-dependent with ADLs Recommendation/Plan PT Recommendation/Plan: Inpatient Rehab Facility Patient at high risk for: Readmission; Falls; Injury due to decreased ability to care for self; Injury due to reduced functional status; Injury due to impaired cognition; Injury due to balance deficits; Injury at home as patient has not returned to prior level of function; Developing impaired skin integrity; Cognitive decline due to decreased social participation; Mismanagement of medications; Prolonged dependence for self care tasks Recommend Inpatient Rehab/Acute Rehab due to: Ability to actively participate in intensive therapy 3 hours/day, 5 days/week or 900 minutes per week; Highly motivated to participate in therapy; Not atbaseline due to impaired ability to complete ADLs; Impaired ability to complete functional mobility; Likely to return to the community at discharge with support system in place; Requires greater than25% physical assistance with most mobility tasks; Requires greater than 25% physical assistance with most ADL tasks; Patient and caregiver require specialized skilled training due to new level of function/diagnosis; Requires multiple therapy disciplines to address functional deficits; Requires skilled therapy interventions to address neurological deficits PT Frequency during current admission: 5-7x/wk Treatment/Interventions during current admission: Balance Training; Bed mobility; Endurance training; Functional activity; Functional transfer training; Gait training; Neuromuscular re-education; Parent/caregiver training and education; Positioning; Range of motion; Stair training; Strengthening; Th erapeutic exercise; Therapeutic activity; Transfer training Progress during current admission: Progressing toward goals PT - Next Appointment: 12/05/23 PT - OK to Discharge: Yes (to a facility) PT Evaluation Complete: Yes Review of Systems 10 point ROS negative except as above per HPI. Vital Signs Vitals: 12/04/23 1408 12/04/23 1439 12/04/23 1600 12/04/23 2055 BP: 106/62 110/66 109/64 126/72 BP Location: Left arm Left arm Right arm Patient Position: HOB 30 degrees HOB 30 degrees Pulse: 59 56 61 72 Resp: 18 Temp: 36.9 ??C (98.4 ??F) 37 ??C (98.6 ??F) TempSrc: Oral SpO2: 100% 100% 97% 96% Weight: Height: Physical Exam General: NAD, well-developed well-nourished. Eyes: EOMI, sclera anicteric ENT: NCAT, Mucous membranes moist Lungs: Normal effort. Cardiac: EWWP Abdomen: Soft, nondistended. No organomegaly. Extremities: Severe BLE edema up to abdomen Psychiatric: Normal mood Dermatologic: No evident skin lesions. No rashes. Neurological: Mental status: A&Ox3, regards and tracks the examiner spontaneously, able to follow simple and complex commands Language: Speech is fluent with appropriate bhavin. There is no dysarthria CN: EOMI, facial muscles are symmetric, sensation to light touch is intact over the bilateral face,hearing is intact to spoken voice, tongue is midline. 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 male with PMH of recent L4-5 PSF c/b post-op cardiac arrest, rib fractures from CPR, and b/l PE on therapeutic anticoagulation, GERD, CKD, b/l total knee replacements, melanoma, and prostate CA s/p prostatectomy, who was admitted to [facility] on 11/07/2023 for sudden onset BLE numbness and inability to ambulate consistent with cauda equina syndrome, who was found to have dorsal epidural and subdural hematoma from T5-S1. # Gait and ADL dysfunction due to epidural/subdural spinal hematoma s/p evacuation -Recommend sitting up out of bed for at least 3 hours at a time, BID. Patient should have the physical endurance and arousal level to tolerate this level of activity in order to be considered for acute rehabilitation. -Please have patient evaluated by and continuing to work with PT/OT/FLAT FOLDER for assessment of current function and discharge recs. # Pain: -Continue to monitor and address accordingly as pain may limit ability to participate with therapies. -Please consider use of modalities (ie. Ice, heat), and/or topical medications (ie. Lidocaine cream/aspercreme) to achieve pain relief. # Sleep: -Continue to monitor the patient???s sleep wake cycle (ie. sleep log if possible) and ensure they are receiving adequate sleep as this is important for recovery and for rehabilitation efforts. -Use appropriate diurnal cues (ie. Lighting, bed positioning, elimination of electronic devices) and minimize disruptions during sleeping hours as much as possible. -Consider Ramelteon 8 mg QHS (can be scheduled or PRN) if needed. # NeuroBowel/Bladder: -Please ensure adequate bowel movements, particularly if patient is using an appreciable amount of narcotic pain medications. -Please consider obtaining PVRs to assess for urinary retention if post-Harris or concern for urinary retention. # Skin Care/Hygiene: -Skin breakdown precautions due to prolonged hospitalization/significant amount of time in bed. -Recommend pressure relief when out of bed, with patient education to perform pressure relief every30 minutes. -Recommend turning patient while in bed every 2 hours to prevent development of pressure sores/ulcers. -Recommend adequate nutritional intake to provide for adequate healing. # DVT PPX: -Currently HELD # REHAB DISPOSITION RECOMMENDATIONS: We recommend return to inpatient spinal cord injury rehabilitation for this patient. To be an appropriate rehabilitation candidate, the patient should (1) be medically stable, (2) demonstrate enough cognitive carryover to ensure that therapies will be effective with subsequent treatments, (3) demonstrate enough endurance to tolerate 3 hours/day at least 5 days/week of intensive mult idisciplinary therapies, (4) be able and willing to participate with therapies, and (5) have adequate social support and reasonable anticipated discharge plan in place prior to being admitted for acute inpatient rehabilitation. Reviewed post-acute rehabilitative management options at length with the patient and educated him on the various levels of care. He expressed understanding and agreed with these recommendations. Thank you for the opportunity to contribute to the care of this patient and for your consideration of the above recommendations. For questions or concerns, please call the PM&R Consult service at . Tyrone Martínez MD PM&R PGY-3 Cosigned by Nazario Lynn MD at 12/05/2023 10:29 AM BOIL OFF WORKER OFF WORKER OFF WORKER Associated attestation - Nazario Lynn MD - 12/05/2023 10:29 AM BOIL OFF WORKER ATTENDING DOCUMENTATION I have seen and examined the patient on 12/04/23. I was present with the resident, Dr. Martínez, duringthe performance of the critical and jones portions of the service and was directly involved in the management of the patient. I agree with the findings and plan as documented in the resident's note, with the following additions: The patient is a 73yo man with pmh including recent L4-L5 PSF with post- operative cardiac arrest insetting of PE with initiation of anticoagulation c/b development of small Bilateral SDH, Left perinephric hematoma, and T5-S1 epidural hematoma causing paraplegia s/p T5-L5 laminectomy and evacuationand placement of IVC filter and suspension of anticoagulation, with development of IVCf-associated DVT extending to Bilateral posterior tibial and peroneal veins with progressive edema for which he was transferred from inpatient rehab to [facility] on 11/29, with initiation of heparin gtt and plan to transition to lovenox. Exam with BUE strength intact, edema at lower abdomen and throughout BLE, 2/5 strength in Bilateralflexion and extension, and 0/5 strength in hip and knee musculature Recommendations: Continue aggressive diuresis Thrombectomy would likely expedite edema management which would allow significant improvement of passive maneuvering of lower limbs to facilitate [place] of mobility. Upon medical stabilization, return to inpatient spinal cord injury rehabilitation with PT, OT, and physiatric supervision. Nazario Lynn [employer] Specialist Physical Medicine and Rehabilitation 75 minutes total collaborative time spent on hospital floor in face to face evaluation and discussion with patient, in communication with medical and clinical care team, and in review and coordination of patient care plan. * Jessenia Ash MD - 11/30/2023 11:29 AM CSTAssociated Order(s): IP CONSULT TO UROLOGY Images from the original note were not included. Urology Consult Note Subjective Chief Complaint: L hydronephrosis with ureteral stent in place Requesting provider: Vibha Ramirez History of Present Illness: Hira Evans is a 73 y.o. male PMH of prostate cancer s/p RALP (20yrs ago), lumbar spinal surgery (for disc herniation) complicated by cauda equina syndrome status post L4-5 decompression (11/08/23) with paraplegia and post-op cardiac arrest, bilateral PE s/p IVC placement presenting with DVT. Urologic history: Admitted in 10/2023 with complex UTI and impacted left ureteral stone requiring LPCN after failed stent placement. Now s/p L URS/LL, ureteral stent placement with removal of PCN on10/18/23. Earlier this month he also had difficulty with CIC at inpatient rehab, resulting in traumatic harris placement, and harris placement by urology over a guide wire on 11/19/23. On 11/21/23 had urine culture obtained for worsening leukocytosis, grew Enterobacter cloacae. He hasbeen on macrobid since then with resolution of leukocytosis. Harris currently in place draining CYU. VSS, afberile. CT scan here shows left hydronephrosis with Lureteral stent in place and stones in L proximal ureter. No fever, dysuria, urgency, frequency, suprapubic pain, flank pain. No gross hematuria. UA >50 WBCs, 21-50 RBC, 3+ LE Cr 0.86 WBC 6.2 Hgb 7.3 The patient's past medical, surgical, were reviewed and noncontributory to this illness/condition except as noted below: The patient's past medical history is notable for: Past Medical History: Diagnosis Date Allergic rhinitis Arthritis OA Cancer (CMS/HCC) (HCC) prostate and melonomia Cauda equina compression (HCC) DVT (deep venous thrombosis) (CMS/HCC) (HCC) Gastric reflux GERD (gastroesophageal reflux disease) History of melanoma Hypertension Kidney stone Personal history of prostate cancer Pneumonia Pulmonary embolism (HCC) Seasonal allergies The patient's past surgical history is notable for: Past Surgical History: Procedure Laterality Date FL UPPER GI AIR CONTRAST W KUB Left 09/21/2023 INSERT VENA CAVA FILTER N/A 11/09/2023 JOINT REPLACEMENT Right 2013 right knee replacement MELANOMA RESECTION Right 2005 right flank PERCUTANEOUS NEPHROSTOMY PCN LEFT Left 10/14/2023 PROSTATECTOMY 2009 REPLACEMENT TOTAL KNEE Left 10/17/2021 REVISION TOTAL KNEE ARTHROPLASTY Right 09/30/2019 VASECTOMY 30 years ago Review of systems negative other than what is stated in the HPI. Objective In/Outs: I/O last 3 completed shifts: In: - Out: 225 [Urine:225] No intake/output data recorded. Physical Exam: Vitals: 11/29/23 1655 11/29/23 1950 11/30/23 0425 BP: 122/70 117/63 104/64 BP Location: Right arm Right arm Right arm Patient Position: HOB 30 degrees Lying;HOB 30 degrees Lying;HOB 30 degrees Pulse: 72 87 70 Resp: 18 18 18 Temp: 36.7 ??C (98.1 ??F) 37.6 ??C (99.6 ??F) 37.2 ??C (98.9 ??F) TempSrc: Oral Oral Oral SpO2: 100% 100% 99% Weight: 81.6 kg (179 lb 14.3 oz) Height: 172.7 cm (5' 8 ) General: In no acute distress Pulmonary: Non-labored breathing Cardiovascular: Well perfused Abdomen: soft, non tender, Non distended : Harris in place draining CYU, marked swollen scrotum, non-tender, no erythema, drainage, or crepitu Neuro: Alert and oriented Psych: Appropriate and cooperative Labs/Imaging: Chem/LFT Lab History Latest Ref Rng & Units 11/26/2023 13:55 11/28/2023 07:15 11/29/2023 07:17 11/30/2023 00:12 Labs-Chem/LFT Sodium 135 - 145 mmol/L 129 132 133 132 Creatinine 0.80 - 1.30 mg/dL 1.24 1.09 0.94 0.86 Bilirubin, total 0.1 - 1.2 mg/dL 0.3 0.4 0.2 AST 10 - 50 Units/L 35 65 61 ALT 7 - 55 Units/L 50 80 77 Alk phos 40 - 130 Units/L 139 139 140 CrCl- Actual Body Weight (Cockcroft-Gault) 62.2 70.7 82 89.6 Hematology Lab History Latest Ref Rng & Units 11/22/2023 06:36 11/26/2023 13:55 11/29/2023 07:17 11/30/2023 00:12 Labs - Hematology WBC 3.8 - 9.9 K/cumm 12.9 9.8 8.1 6.2 Total Hb, POC 13.0 - 17.5 g/dL 8.8 8.0 7.7 7.3 Hct 38.9 - 50.3 % 27.8 24.4 23.9 22.5 Plt 150 - 400 K/cumm 110 135 150 158 Neutrophil abs 1.5 - 6.5 K/cumm 9.6 8.0 6.1 4.3 Lymphocytes, abs 0.8 - 3.3 K/cumm 1.6 0.7 0.9 1.1 The following images were personally reviewed by me. EXAMINATION: Computed tomography of the abdomen and pelvis with intravenous contrast HISTORY: Evaluate for deep venous thrombosis. TECHNIQUE: Transaxial computed tomographic images of the abdomen and pelvis were obtained with intravenous contrast according to the venogram protocol after the uneventful administration of 88 mL Opti-Ray 350 intravenous contrast. COMPARISON: 11/19/2023 FINDINGS: Limited views of the thorax are provided. There is slight motion artifact. There is a inferior vena cava filter seen at the level just below the renal veins. There is low attenuation associated with the IVC filter that extends inferiorly within the IVC and also appears to extend into the internal and external iliac vasculature bilaterally there is suggestion that they are are filling defects with in bilateral common femoral veins. Overall this is suspicious for extensive clot burden. No definite clot is seen within the renal veins. Recommend correlation with the findings from ultrasound. It is somewhat difficult to evaluate clot burden given the timing of the contrast. Limited views of the thorax are provided. No suspicious findings on limited views of the thorax. Study slightly limited by motion artifact. No suspicious pulmonary nodules or masses. Scattered atelectasis is seen. No pneumothorax or pleural effusion. The heart size is normal. Trace pericardial effusion. There is diffuse body wall edema. Scattered cysts are seen within the liver. No suspicious focal hepatic lesion. Gallbladder normal. There is suggestion of periportal space widening which can be seen in the setting of hepatic fibrosis. The right hemiliver appears somewhat atrophic. No bile duct dilation. Pancreas normal. Spleen normal. Interval decrease in size of the subcapsular fluid in the left kidney. There are too small to characterize hypoattenuating lesion seen within the right kidney which are unchanged. No suspicious focal renal lesion. There is a left-sided ureteral stent which terminates in the extrarenal pelvis on the left in the urinary bladder. There is a prominent extrarenal pelvis with unchanged mild hydronephrosis. Contrast is seen within the collecting systems in keeping with the timing of the contrast. Urinary bladder is decompressed. As a Harris catheter in place. Prostatectomy changes are noted. The appendix is not readily identified. No appendiceal inflammation. No suspicious bowel wall thickening. No evidence of bowel obstruction. Limited evaluation the portal venous vasculature given the timing of the contrast. The aorta is normal in caliber. Scattered vascular calcifications are seen. Trace free fluid is seen within the intraperitoneal cavity. There is no free intraperitoneal fluid or gas. Large bilateral hydroceles. There is extensive body wall edema, increased since the prior examination, and there is suggestion of collateral vessels in the subcutaneous fat of the anterior abdominal wall. Postsurgical changes of posterior decompression with instrumented spinal fusion are seen within the lumbar spine. The appearance is overall similar when compared to the prior examination. Degenerative changes are seen in the spine. No suspicious lytic or blastic osseous lesions. IMPRESSION: 1. Somewhat limited evaluation of the systemic [...] A left ureteral stent is in place. Assessment Hira Evans is a 73 y.o. male PMH of prostate cancer s/p RALP (20yrs ago), lumbar spinal surgery (for disc herniation) complicated by cauda equina syndrome status post L4-5 decompression (11/08/23) with paraplegia and post-op cardiac arrest, bilateral PE s/p IVC placement presenting with DVT. He is s/p L URS/LL, ureteral stent placement with removal of PCN on 10/18/23 for impacted left ureteral stone. Urology consulted for L hydronephrosis with L ureteral stent in place and L proximal ureteral stones. CT scan is stable compared to 11/19/23. He has no flank pain, afebrile, and Cr at baseline. No urgent need to exchange stent at this time. Would recommend repeat urine culture to ensure resolution of UTI. He has second look ureteroscopy scheduled on 12/25/[address] Mcintosh. Plan - obtain dedicated urine culture to ensure resolution of 11/21/23 UTI - could consider scrotal US to assess scrotal swelling if he develops pain or worsening symptoms; can continue with conservative management with scrotal support at this time - scheduled for second look URS on 12/25/23 w/ Dr. Mcintosh - harris has been in place since 11/19 after difficulty with CIC and traumatic harris placement; can void trial / resume CIC per primary team Thank you for allowing us to participate in the care of this patient. For any questions or concerns, please page Urology through the cracking and fanning machine operator. Jessenia Ash MD 11/30/2023 Cosigned by George Ocampo DO at 11/30/2023 12:41 PM BOIL OFF WORKER OFF WORKER OFF WORKER Associated attestation - George Ocampo DO - 11/30/2023 12:41 PM BOIL OFF WORKER I have personally seen and examined the patient on 11/30/2023 and agree with the resident's plan. Recent stent placement CT shows L hydro despite stent being in reasonable position; possibly stone dust alongside the stent as it appeared from the op note that there were no significant remaining fragments Patient with acute DVT Recent culture-proven UTI Discussed with family that would want patient optimized from medical standpoint and UTI fully treated before next ureteroscopy with intervention No acute need for stent exchange as patient has no flank pain and Cr stable. Patient has follow up with Dr. Mcintosh Follow up urine culture to ensure resolution of UTI Scrotal support; could consider scrotal ultrasound if patient develops pain. George Ocampo, PGY-6 [facility] Endourology Fellow Pager: [phone] * Oz Elena MD - 11/30/2023 7:34 AM CSTAssociated Order(s): IP CONSULT TO HEMATOLOGY Images from the original note were not included. Hematology Consult Note Visit date: 11/30/2023 Patient: Hira Evans Assessment and Plan: Mr Evans is 73 y.o. year old male cared for by Dr. Marcial Vu from [facility] with a PMH notable for prostate CA s/p prostatectomy 2008, melanoma (s/p resection 2005), GERD, obesity, CKD, with multiple recent admissions initially for complex UTI needing ureteral stent placement (10/18/23) followed by PSF L4- L5 for herniated disc 10/23/23 c/b post-op cardiac arrest i/s/o B/L PEs (left main) and also bilateral subacute subdural hematomas, started on therapeutic anticoagulation (lovenox), butre-presented 11/08/23 with cauda equina syndrome due to epidural/subdural hematoma extending from T5-6 to L5-S1. He is since s/p T5- L5 laminectomies w/ hematoma evacuation and lumbar dural repair on 11/08/23. Hematology was consulted on 11/08/23 and had agreed with holding AC for 2 weeks. Heme had also recommended placing IVC filter only if he had active DVTs. In the absence of LE DVTs, we had recommended considering risks of clotting with IVC filter vs risk of recurrent DVT/PE I/s/o paraplegia and risk for future clots. LE dopplers were negative for DVT on 11/08/23 but IVC filter was placed nevertheless on 11/09/23 due to risk of recurrent DVT/PE. He was discharged with plans to restart DVT PPX on POD21 11/29 and restart therapeutic AC once cleared by [facility] during outpatient follow up. He was discharged to [facility] 11/16/23. Since then he had new LE edema and was found to have new LE DVT11/23/23, now presenting with progressively worse BLE edema+scrotal edema+edema found to have BLE extensive DVTs extending inferiorly from the IVC filter. Hematology is consulted for anticoagulation re commendations. DVTs with extension to IVC filter is a potential complication that is anticipated in all patients who have an IVC filter placed. Anticoagulation should help with his symptoms in the lower extremities. Recommendations: - Start heparin gtt without bolus. Currently heparin gtt ordered with normal PTT goal, rather than reduced PTT goal. This should be okay since it would take some time to reach goal PTT without the bolus - Once on a therapeutic dose of heparin gtt and not bleeding, could consider transition to lovenox,but we will make this decision in conjunction with Ortho [facility] team, primary team and patient/ Thank you for this consult. We will continue to follow. Please do not hesitate to contact us with any questions or concerns. This patient was staffed with my attending physician Dr. Gonzalez, who agrees with the abovementioned assessment and plan. Oz CHAUDHARY Hematology and Oncology fellow, PGY-4 [facility] For questions about this consult, please contact the inpatient Hematology BALL MILL OPERATOR: Rae Weller [phone] Sunday - Sunday, 8 AM to 5 PM (except holidays) Reason for Consult: 73yoM with DVT with inability to take anticoagulation with progressive DVTs - followed by hematology. Requesting Provider: Vibha Ramirez MD Mr Evans is 73 y.o. year old male cared for by Dr. Marcial Vu from [facility] with a PMH notable for prostate CA s/p prostatectomy 2008, melanoma (s/p resection 2005), GERD, obesity, CKD, with multiple recent admissions initially for complex UTI needing ureteral stent placement (10/18/23) followed by PSF L4- L5 for herniated disc 10/23/23 c/b post-op cardiac arrest i/s/o B/L PEs (left main) and also bilateral subacute subdural hematomas, started on therapeutic anticoagulation (lovenox), ambulating with walker at that time but re-presented 11/08/23 with cauda equina syndrome due to catastrophic epidural/subdural hematoma extending from T5-6 to L5-S1. He is since s/p T5-L5 laminectomies w/ hematoma evacuation and lumbar dural repair on 11/08/23. Hematology was consulted at that time and recommended holding AC for 2 weeks. Heme had recommended placing IVC filter only if he had active DVTs.CT PE on 11/09/23 with improved clot burden. LE dopplers negative for DVT on 11/08/23 Although LE dopplers were negative IVC filter was placed on 11/09/23. He was discharged with plans to restart DVT PPX on POD21 11/29 and restart therapeutic AC once cleared by [facility] during outpatient follow up. He was discharged to [facility] 11/16/23. Since then he had new LE edema and was found to have LE DVT 11/23/23, now presenting with progressively worse BLE edema+scrotal edema+edema extending to lower abdomen. Hematology is consulted given concern for progressive DVTs and possible extension till the IVC filter, for anticoagulation recommendations. Since discharge to [facility] 11/16, he had an ED visit 11/19 for traumatic harris placement requiring urology harris placement over a wire. He had a CT during the encounter revealing interval decreased sizeof left perinephric hematoma with new left hydronephrosis with stones in the left proximal ureter with L double J stent in place (unclear of efficacy based on imaging); he was subsequently dischargedback to [facility]. Of note he had a urine culture on 11/21 that was positive for Enterobacter cloacae (S - bactrim, macrobid, cefepime) - obtained due to worsening leukocytosis. He has been on macrobid since with interval resolution of leukocytosis and no urinary complaints at this time. He also has developed LE edema over the last 10 days. LE Duplex on 11/23 at [facility] that revealed DVTs over the bilateral SF junctions, bilateral common femoral, bilateral proximal and mid femoral, right popliteal, and right posterior tibial veins (report unable for review). The LE edema has progressed now up to his abdomen - over the past two days he has had marked edema of his scrotum without pain/erythema or tenderness. He has been hemodynamically stable since admission. His labs show Hb of 7.3, otherwise normal CBC. LE dopplers with extensive bilateral DVTs, CT A/P showed extension of clot inferiorly starting from the IVC filter. Ortho spine cleared to start heparin gtt without bolus and this was started at noon.When seen at bedside, he denied any pain in his LE due to spinal cord injury. The edema is present all the way up to posterior chest wall. No skin erythema on exam. updated at bedside. She did tell us that the providers at [facility] had wanted to start DVT PPX last week and she had not wanted to do that because of the risk for bleeding. Past Medical History: Patient Active Problem List Diagnosis Date Noted DVT (deep venous thrombosis) ([facility]) ([facility]) 11/29/2023 Anemia 11/29/2023 Paraspinal hematoma 11/29/2023 Hyponatremia 11/29/2023 Elevated transaminase level 11/29/2023 Lower extremity edema 11/29/2023 Scrotal swelling 11/29/2023 Seizure ([facility]) 11/29/2023 Prediabetes 11/29/2023 Kidney stone 11/09/2023 Paralysis of both lower limbs ([facility]) ([facility]) 11/07/2023 Pulmonary embolism ([facility]) 10/26/2023 S/P spinal fusion 10/23/2023 Cardiac arrest ([facility]) 10/23/2023 Left perinephric collection, likely [...] 10/25/2018 Localized adiposity 07/17/2018 Knee pain 10/24/2016 Review of Systems: All other systems negative. Home Medications: Prior to Admission medications Medication Sig Start Date End Date Taking? Authorizing Provider acetaminophen 500 mg capsule Take 2 capsules (1,000 mg total) by mouth every 6 (six) hours 11/16/23 12/16/23 Francisco Javier Aleman NP acyclovir (ZOVIRAX) 400 mg tablet Take 1 tablet (400 mg total) by mouth 2 (two) times a day 06/08/19 Fidelia Perdue MD bisacodyL (DULCOLAX) 10 mg suppository Insert 1 suppository (10 mg total) into the rectum daily Fidelia Perdue MD cephalexin (KEFLEX) 500 mg capsule Take 1 capsule (500 mg total) by mouth daily as needed (30 minutes prior to dental appt) When pt has procedures gets pre antibiotic r/t history knee replacements 10/09/22 Fidelia Perdue MD cholecalciferol (VITAMIN D-3) 5,000 unit capsule Take 1 capsule (5,000 Units total) by mouth every morning Fidelia Perdue MD cyclobenzaprine (FLEXERIL) 5 mg tablet Take 1 tablet (5 mg total) by mouth 3 (three) times a day asneeded for muscle spasms 10/30/23 Rafael Rodriguez, CARLA DILT-XR 240 mg 24 hr capsule Take 1 capsule (240 mg total) by mouth 2 (two) times a day 05/12/19 Fidelia Perdue MD gabapentin (NEURONTIN) 300 mg capsule Take 1 capsule (300 mg total) by mouth every 8 (eight) hours Patient taking differently: Take 2 capsules (600 mg total) by mouth 3 (three) times a day 10/30/23 11/29/23 Rafael Rodriguez NP levETIRAcetam (KEPPRA) 1,000 mg tablet Take 1 tablet (1,000 mg total) by mouth 2 (two) times a day 10/30/23 12/29/23 Rafael Rodriguez NP loratadine (CLARITIN) 10 mg tablet Take 1 tablet (10 mg total) by mouth daily Fidelia Perdue MD Mounjaro 10 mg/0.5 mL pen injector Inject 10 mg under the skin once a week Sunday04/05/23 Fidelia Perdue MD nitrofurantoin monohydrate (MACROBID) 100 mg capsule Take 1 capsule (100 mg total) by mouth 2 (two)times a day Fidelia Perdue MD nystatin powder Apply 1 Application topically 2 (two) times a day Fidelia Perdue MD omeprazole (PriLOSEC) 20 mg capsule Take 1 capsule (20 mg total) by mouth every morning Fidelia Perdue MD psyllium husk, with dextrose, 3.4 gram/ 6.5 gram powder Take 3.4 mg by mouth daily Fidelia Perdue MD senna-docusate (PERICOLACE) 8.6-50 mg Take 2 tablets by mouth 2 (two) times a day 11/16/23 12/16/23 Francisco Javier Aleman NP tamsulosin (FLOMAX) 0.4 mg extended release capsule Take 2 capsules (0.8 mg total) by mouth daily with dinner 10/30/23 11/29/23 Rafael Rodriguez NP traMADoL (ULTRAM) 50 mg tablet Take 1 tablet (50 mg total) by mouth every 4 (four) hours as needed for pain 11/16/23 Nasir Manzanares MD cetirizine (ZyrTEC) 10 mg tablet Take 1 tablet (10 mg total) by mouth azure principal solution specialist before breakfast 11/29/23 Fidelia Perdue MD coenzyme Q10 100 mg capsule Take 1 capsule (100 mg total) by mouth azure principal solution specialist before breakfast 11/29/23 Fidelia Perdue MD enoxaparin (LOVENOX) 40 mg/0.4 mL syringe Inject 0.4 mL (40 mg total) under the skin daily Prophylactic dosing only for lovenox until follow-up with hematology outpatient 11/29/23 11/29/23 Francisco Javier Aleman NP irbesartan (AVAPRO) 150 mg tablet Take 1 tablet (150 mg total) by mouth every morning 11/17/23 11/29/23 Francisco Javier Aleman NP Allergies Allergies as of 11/28/2023 (No Known Allergies) Social History Social History Tobacco Use Smoking status: Former Packs/day: 1.00 Years: 8.00 Additional pack years: 0.00 Total pack years: 8.00 Types: Cigarettes Start date: 11/05/1968 Quit date: 11/05/1979 Years since quittin.0 Passive exposure: Past Smokeless tobacco: Never Substance and Sexual Activity Drug use: Yes Frequency: 7.0 times per week Types: Medical marijuana Comment: MJ = edibles daily for pain; Alcohol = 2 glasses of wine per evening Sexual activity: Yes Partners: Female control/protection: Vasectomy Alcohol Use: Not At Risk (10/23/2023) AUDIT-C Frequency of Alcohol Consumption: 4 or more times a week Average Number of Drinks: 1 or 2 Frequency of Binge Drinking: Never Family History Family History Problem Relation Age of Onset Heart disease Mother Lung disease Mother Alcohol abuse Father Cancer Father Heart disease Other Family history of cardiac disorder - (Added by TW Conv) Cancer Other Family history of malignant neoplasm - (Added by TW Conv) Anesthesia problems Neg Hx Physical Exam: Patient Vitals for the past 24 hrs: BP Temp Temp src Pulse Resp SpO2 Height Weight 11/30/23 0425 104/64 37.2 ??C (98.9 ??F) Oral 70 18 99 % -- -- 11/29/23 1950 117/63 37.6 ??C (99.6 ??F) Oral 87 18 100 % -- -- 11/29/23 1655 122/70 36.7 ??C (98.1 ??F) Oral 72 18 100 % 172.7 cm (5' 8 ) 81.6 kg (179 lb 14.3 oz) General: NAD, appears comfortable, cooperative Eyes: PERRL. Sclera anicteric. ENT: MMM, no nasal d/c. Cardiac: RRR, no m/g/r Pulm: CTAB, no wheezing, rhonchi, rales GI/Abd: Soft, NTND, no rebound. Extremities: 3+ LE edema all the way upto scrotum, posterior abdominal and chest wall Skin: No rash or bruises. Neuro: AAO x 4, EOMI, paraplegic Laboratory Interpretation: Hematology Lab History Latest Ref Rng & Units 11/22/2023 06:36 11/26/2023 13:55 11/29/2023 07:17 11/30/2023 00:12 Labs - Hematology WBC 3.8 - 9.9 K/cumm 12.9 9.8 8.1 6.2 Total Hb, POC 13.0 - 17.5 g/dL 8.8 8.0 7.7 7.3 Hct 38.9 - 50.3 % 27.8 24.4 23.9 22.5 Plt 150 - 400 K/cumm 110 135 150 158 Neutrophil abs 1.5 - 6.5 K/cumm 9.6 8.0 6.1 4.3 Lymphocytes, abs 0.8 - 3.3 K/cumm 1.6 0.7 0.9 1.1 Chem/LFT Lab History Latest Ref Rng & Units 11/26/2023 13:55 11/28/2023 07:15 11/29/2023 07:17 11/30/2023 00:12 Labs-Chem/LFT Sodium 135 - 145 mmol/L 129 132 133 132 Creatinine 0.80 - 1.30 mg/dL 1.24 1.09 0.94 0.86 Bilirubin, total 0.1 - 1.2 mg/dL 0.3 0.4 0.2 AST 10 - 50 Units/L 35 65 61 ALT 7 - 55 Units/L 50 80 77 Alk phos 40 - 130 Units/L 139 139 140 CrCl- Actual Body Weight (Cockcroft-Gault) 62.2 70.7 82 89.6 Imaging Interpretation: LE dopplers 11/30/23 CONCLUSIONS: 1. There is acute deep vein thrombosis in the bilateral lower extremities involving vein(s) as noted above. CT A/P 11/30/23 IMPRESSION: 1. Somewhat limited evaluation of the systemic [...] A left ureteral stent is in place. Assessment and Plan: Assessment and Plan is now at the top of the note. Cosigned by Kathia Salas MD at 12/02/2023 11:25 PM BOIL OFF WORKER OFF WORKER OFF WORKER Associated attestation - Kathia Salas MD - 12/02/2023 11:25 PM BOIL OFF WORKER I have seen and examined the patient on 11/30/2023. I agree with the findings and plan of care as documented in the resident's/fellow's note.. * Hayden Youngblood MD - 11/29/2023 9:06 PM CSTAssociated Order(s): IP CONSULT TO ORTHO SPINE Orthopaedic Surgery Spine Service Consult November 29, 2023 9:06 PM Reason for Consult: guidance for anticoagulation postop Requesting Provider: [facility] hospitalist service This patient was evaluated within 30 minutes of call from consulting provider. Clohisy/Erkilinc Dx: BLE DVTs -- consult for guidance w/ anticoagulation Relevant PMHx: postop cardiac arrest and b/l PE s/p therapeutic anticoagulation c/b hematoma and cauda equina s/p decompression 11/08/23, prostate CA s/p prostatectomy, GERD, obesity, CKD, UTI, melanoma Plan: Ongoing discussion with heme/ortho spine/hospitalist w/ plan for possible hep gtt starting 11/30 Procedure(s): 10/23/23: L4-L5 decompression, TLIF, PSF 11/08/23: T5-L5 laminectomies w/hematoma evacuation and lumbar dural repair HPI: 73 y.o. male with bilateral lower extremity edema in the setting of PE/DVTs. He previously underwent L4-5 decompression with TLIF and posterior spinal fusion on 10/23/23. His postop recovery wascomplicated by hematoma with presentation of acute cauda equina syndrome with urgent decompression on 11/08/23. He has had DVTs postop and has remained off anticoagulation as he has an IVC filter in place. However, he has had worsening lower extremity edema and now scrotal edema over the last 10 days prompting his return from [facility] to [place]. Ortho spine has been consulted to assist with guidancefor anticoagulation management in his postoperative setting. Exam: Neuro exam is similar to prior, bilateral lower extremity edema up to the waist. OI: BLE DVT/PE. Consulting Services: Hematology, hospitalist, ortho spine, vascular surgery. PMHx: As above. Soc Hx: Readmitted to hospital after discharge and rehab [facility] Past Medical History: Diagnosis Date Allergic rhinitis Arthritis OA Cancer (CMS/HCC) (HCC) prostate and melonomia Cauda equina compression (HCC) DVT (deep venous thrombosis) (CMS/HCC) (HCC) Gastric reflux GERD (gastroesophageal reflux disease) History of melanoma Hypertension Kidney stone Personal history of prostate cancer Pneumonia Pulmonary embolism (HCC) Seasonal allergies Past Surgical History: Procedure Laterality Date FL UPPER GI AIR CONTRAST W KUB Left 09/21/2023 INSERT VENA CAVA FILTER N/A 11/09/2023 JOINT REPLACEMENT Right 2013 right knee replacement MELANOMA RESECTION Right 2005 right flank PERCUTANEOUS NEPHROSTOMY PCN LEFT Left 10/14/2023 PROSTATECTOMY 2009 REPLACEMENT TOTAL KNEE Left 10/17/2021 REVISION TOTAL KNEE ARTHROPLASTY Right 09/30/2019 VASECTOMY 30 years ago Prior to Admission medications Medication Sig Start Date End Date Taking? Authorizing Provider acetaminophen 500 mg capsule Take 2 capsules (1,000 mg total) by mouth every 6 (six) hours 11/16/23 12/16/23 Francisco Javeir Aleman NP acyclovir (ZOVIRAX) 400 mg tablet Take 1 tablet (400 mg total) by mouth 2 (two) times a day 06/08/19 Fidelia Perdue MD bisacodyL (DULCOLAX) 10 mg suppository Insert 1 suppository (10 mg total) into the rectum daily Fidelia Perdue MD cephalexin (KEFLEX) 500 mg capsule Take 1 capsule (500 mg total) by mouth daily as needed (30 minutes prior to dental appt) When pt has procedures gets pre antibiotic r/t history knee replacements 10/09/22 Fidelia Perdue MD cholecalciferol (VITAMIN D-3) 5,000 unit capsule Take 1 capsule (5,000 Units total) by mouth every morning Fidelia Perdue MD cyclobenzaprine (FLEXERIL) 5 mg tablet Take 1 tablet (5 mg total) by mouth 3 (three) times a day asneeded for muscle spasms 10/30/23 Rafael Rodriguez NP DILT-XR 240 mg 24 hr capsule Take 1 capsule (240 mg total) by mouth 2 (two) times a day 05/12/19 Fidelia Perdue MD gabapentin (NEURONTIN) 300 mg capsule Take 1 capsule (300 mg total) by mouth every 8 (eight) hours Patient taking differently: Take 2 capsules (600 mg total) by mouth 3 (three) times a day 10/30/23 11/29/23 Rafael Rodriguez NP levETIRAcetam (KEPPRA) 1,000 mg tablet Take 1 tablet (1,000 mg total) by mouth 2 (two) times a day 10/30/23 12/29/23 Rafael Rodriguez NP loratadine (CLARITIN) 10 mg tablet Take 1 tablet (10 mg total) by mouth daily Fidelia Perdue MD Mounjaro 10 mg/0.5 mL pen injector Inject 10 mg under the skin once a week Sunday04/05/23 Fidelia Perdue MD nitrofurantoin monohydrate (MACROBID) 100 mg capsule Take 1 capsule (100 mg total) by mouth 2 (two)times a day Fidelia Perdue MD nystatin powder Apply 1 Application topically 2 (two) times a day Fidelia Perdue MD omeprazole (PriLOSEC) 20 mg capsule Take 1 capsule (20 mg total) by mouth every morning Fidelia Perdue MD psyllium husk, with dextrose, 3.4 gram/ 6.5 gram powder Take 3.4 mg by mouth daily Fidelia Perdue MD senna-docusate (PERICOLACE) 8.6-50 mg Take 2 tablets by mouth 2 (two) times a day 11/16/23 12/16/23 Aleman, Francisco Javier Kaiser, BALL MILL OPERATOR tamsulosin (FLOMAX) 0.4 mg extended release capsule Take 2 capsules (0.8 mg total) by mouth daily with dinner 10/30/23 11/29/23 Rafael Rodriguez NP traMADoL (ULTRAM) 50 mg tablet Take 1 tablet (50 mg total) by mouth every 4 (four) hours as needed for pain 11/16/23 Nasir Manzanares MD cetirizine (ZyrTEC) 10 mg tablet Take 1 tablet (10 mg total) by mouth azure principal solution specialist before breakfast 11/29/23 Fidelia Perdue MD coenzyme Q10 100 mg capsule Take 1 capsule (100 mg total) by mouth azure principal solution specialist before breakfast 11/29/23 Fidelia Perdue MD enoxaparin (LOVENOX) 40 mg/0.4 mL syringe Inject 0.4 mL (40 mg total) under the skin daily Prophylactic dosing only for lovenox until follow-up with hematology outpatient 11/29/23 11/29/23 Francisco Javier Aleman NP irbesartan (AVAPRO) 150 mg tablet Take 1 tablet (150 mg total) by mouth every morning 11/17/23 11/29/23 Francisco Javier Aleman NP No Known Allergies Social History Tobacco Use Smoking status: Former Packs/day: 1.00 Years: 8.00 Additional pack years: 0.00 Total pack years: 8.00 Types: Cigarettes Start date: 11/05/1968 Quit date: 11/05/1979 Years since quittin.0 Passive exposure: Past Smokeless tobacco: Never Substance and Sexual Activity Drug use: Yes Frequency: 7.0 times per week Types: Medical marijuana Comment: MJ = edibles daily for pain; Alcohol = 2 glasses of wine per evening Sexual activity: Yes Partners: Female control/protection: Vasectomy Alcohol Use: Not At Risk (10/23/2023) AUDIT-C Frequency of Alcohol Consumption: 4 or more times a week Average Number of Drinks: 1 or 2 Frequency of Binge Drinking: Never Family History Problem Relation Age of Onset Heart disease Mother Lung disease Mother Alcohol abuse Father Cancer Father Heart disease Other Family history of cardiac disorder - (Added by PERLA Conv) Cancer Other Family history of malignant neoplasm - (Added by PERLA Conv) Anesthesia problems Neg Hx Objective Vitals: 24hr Min/Max: Temp Min: 36.7 ??C (98.1 ??F) Max: 37.6 ??C (99.6 ??F) Pulse Min: 72 Max: 87 BP Min: 117/63 Max: 122/70 Resp Min: 18 Max: 18 SpO2 Min: 100 % Max: 100 % Most Recent: Vitals: 11/29/23 1655 11/29/23 1950 BP: 122/70 117/63 BP Location: Right arm Right arm Patient Position: HOB 30 degrees Lying;HOB 30 degrees Pulse: 72 87 Resp: 18 18 Temp: 36.7 ??C (98.1 ??F) 37.6 ??C (99.6 ??F) TempSrc: Oral Oral SpO2: 100% 100% Weight: 81.6 kg (179 lb 14.3 oz) Height: 172.7 cm (5' 8 ) Physical Exam: Gen: Well-developed, well-nourished, in no acute distress. A&O: x3 Normal respirations, no dyspnea with speaking Spine: General: Nylon suture in place in visible portion of incision cranially. Dressing in place that is clean dryand intact caudally. Motor: Muscle Strength Left Right Deltoid 5/5 5/5 Biceps 5/5 5/5 Triceps 5/5 5/5 Wrist extension 5/5 5/5 Wrist flexion 5/5 5/5 Instant Potato Processor 5/5 5/5 Interosseous of hand 5/5 5/5 Iliopsoas 0/5 0/5 Quadriceps 0/5 0/5 Hamstrings 0/5 0/5 Tibialis anterior 0/5 1/5 Extensor hallicus longus 1/5 2/5 Gastrocsoleus complex 0/5 2/5 Sensation Left upper extremity: sensation intact to light touch in C5 to T1 dermatomes. Right upper extremity: sensation intact to light touch in C5 to T1 dermatomes. Left lower extremity: sensation intact to light touch in L2 to S1 dermatomes. Right lower extremity: sensation intact to light touch in L2 to S1 dermatomes. SILT skin over nipple line (T4), Xiphoid process (T7), Umbilicus (T10), pubis (T12) Reflexes: Bilateral biceps, brachioradialis, triceps deep tendon reflexes symmetric without hyperreflexia. Absent patellar tendon deep tendon reflexes in bilateral lower extremities. Rectal exam: +perianal sensation ; upon turning patient for rectal exam, patient is actively demonstrating fecalincontinence. Fecal matter is present at the anus which he was unaware of. Gait: Deferred Long-tract signs: Negative Milner's LUE, equivocal Tyrese's RUE No clonus Nonreactive Babinski Vascular: Bilateral Upper Extremity: 2+ radial pulse, fingers WWP Bilateral Lower Extremity toes WWP with BCR Bilateral lower extremity pitting edema extending up to the waist Lab/Radiology/Diagnostic Review: Laboratory review: Recent Results (from the past 24 hour(s)) CBC with auto differential Collection Time: 11/29/23 7:17 AM Result Value Ref Range WBC 8.1 3.8 - 9.9 K/cumm Hgb 7.7 (L) 13.0 - 17.5 g/dL Hct 23.9 (L) 38.9 - 50.3 % Plt 150 150 - 400 K/cumm MPV 10.7 9.1 - 12.3 fL RBC 2.51 (L) 4.30 - 5.80 M/cumm MCV 95.2 81.3 - 96.4 fL MCH 30.7 27.1 - 33.3 pg MCHC 32.2 (L) 32.3 - 35.7 g/dL RDW CV 15.2 (H) 11.1 - 14.9 % RDW SD 52.6 (H) 35.7 - 48.1 fL NRBC abs 0.00 0.00 - 0.01 K/cumm Differential, auto Collection Time: 11/29/23 7:17 AM Result Value Ref Range Neutrophil abs 6.1 1.5 - 6.5 K/cumm Imm gran abs 0.1 0.0 - 0.1 K/cumm Lymphocyte abs 0.9 0.8 - 3.3 K/cumm Monocyte abs 0.6 0.2 - 0.8 K/cumm Eosinophil abs 0.4 0.0 - 0.5 K/cumm Basophil abs 0.0 0.0 - 0.1 K/cumm Neutrophil pct 75.7 % Imm gran pct 1.1 % Lymphocyte pct 11.5 % Monocyte pct 7.2 % Eosinophil pct 4.3 % Basophil pct 0.2 % CS GLUCOSE Collection Time: 11/29/23 7:17 AM Result Value Ref Range Glucose 105 70 - 199 mg/dL Comprehensive metabolic panel, without glucose (Outreach) Collection Time: 11/29/23 7:17 AM Result Value Ref Range Sodium 133 (L) 135 - 145 mmol/L Potassium, pl 4.5 3.3 - 4.9 mmol/L Chloride 99 97 - 110 mmol/L CO2 24 22 - 32 mmol/L Anion gap 10 2 - 15 mmol/L BUN 29 (H) 6 - 25 mg/dL Creatinine 0.94 0.80 - 1.30 mg/dL Calcium 8.9 8.5 - 10.3 mg/dL Protein, pl 6.0 (L) 6.5 - 8.5 g/dL Albumin 2.8 (L) 3.5 - 5.0 g/dL Bilirubin, total 0.4 0.1 - 1.2 mg/dL Alk phos 139 (H) 40 - 130 Units/L AST 65 (H) 10 - 50 Units/L ALT 80 (H) 7 - 55 Units/L eGFR Collection Time: 11/29/23 7:17 AM Result Value Ref Range eGFR 86 >=60 mL/min/1.73 m2 POCT glucose Collection Time: 11/29/23 5:27 PM Result Value Ref Range Glucose, POC 115 70 - 199 mg/dL POCT glucose Collection Time: 11/29/23 7:56 PM Result Value Ref Range Glucose, POC 167 70 - 199 mg/dL Radiology Review: Not applicable Clinical Images: None Assessment: 73 y.o. male p/w bilateral lower extremity DVTs in setting of recent decompression of postop hematoma causing cauda equina syndrome. I spoke with the hospitalist, Dr. Escobar, managing this patient who has already spoken with Dr. Vu. They are discussing starting high bleeding risk protocol heparin drip in the morning. Mr. Evans is initially hesitant with the plan of starting anticoagulation after his prior complication while on anticoagulation. We discussed that there is a balancing act of risk and that he may be indicated for anticoagulation pending further discussions with multiple consulting services of the hospitalist team managing his care while he is inpatient at [place]. Plan: Admitted to [facility] hospitalist service Further Workup: Further discussion with multiple consulting services regarding anticoagulation planning Further Imaging: None at this time Immobilization: [id number] TLSO when up out of bed Neuro Checks: q4h Activity: Neuro rehab Diet: Diet per primary Hospitalist services in communication with hematology and orthopedic spine regarding an anticoagulation plan. Patient is likely to start high bleeding risk protocol heparin drip pending further discussion. Pain control per primary Abx: Per primary Please call ortho spine if patient develops any concerning changes to their neurologic exam such asnew weakness or loss of bowel/bladder function. Will discuss with the ortho spine team prior to further recommendations. Follow up is currently scheduled for 12/03/[address] Vu at [facility]. -- -- -- Hayden Youngblood M.D., Ph.D. Department of Orthopaedic Surgery, PGY-2 [facility] Please use [facility] to page/call the appropriate Orthopaedic Surgery Team/Resident if questions or concerns. Normal business hours: If you know the resident's name on the appropriate orthopaedic surgery team,please use the Directory Search at [facility] to page resident directly. If questions arise and the appropriate resident can't be reached or you are calling overnight, please contact [phone] ([facility] 7:30 PM - 6:30 AM - Floor Resident) or [phone] (24 hours/day - Consult Resident) Cosigned by Marcial Vu MD at 11/30/2023 10:10 AM BOIL OFF WORKER OFF WORKER OFF WORKER Associated attestation - Marcial Vu Jr., MD - 11/30/2023 10:10 AM BOIL OFF WORKER Attending Attestation I have seen and examined the patient on 11/30/23 in the Hospital. Mr. Evans was admitted overnight from his rehab facility for worsening bilateral lower extremity and now scrotal edema over the past week in the setting of known lower extremity DVTs. He has not been on anticoagulation at the rehab facility given his prior intraspinal bleed and recent spine surgery and since he has an IVC filter in place. On examination, he is resting comfortably in bed. He is alert and oriented x3. Nonlabored breathingand regular rate and rhythm. There is bilateral lower extremity edema which extends proximally to the level of the mid abdomen. On examination, he has 1/5 strength of the left EHL, 1/5 strength of the right tibialis anterior, and 2/5 strength of the right EHL and gastroc; otherwise, 0/5 strength throughout bilateral lower extremities. He has full strength throughout bilateral upper extremities. Sensation is intact to light touch throughout bilateral upper and lower extremities. I removed all of the sutures from his spinal incision today. The incision is healing well without any signs of wound complication or infection. The proximal drain site has a slight amount of erythemaand serous fluid present but there is no pus, fluctuance, or any other signs of infection. He is now over 3 weeks out from T6-L4 laminectomy with evacuation of thoracic and lumbar epidural hematoma and durotomy repair. I have discussed his situation with him, his , Val, and the Medicine team. Given his increasing swelling from his known DVTs and given the fact that he is now over 3weeks out from surgery, we all believe that the benefits of initiating anticoagulation do outweigh the potential risks. Mr. Evans and his family do understand that there is a risk for a recurrent intraspinal bleed which may cause neurologic injury such as paralysis. I have requested a heparin drip no bolus protocol if all teams believe that this would be best. I also requested that he receive antibiotics for 10 days for mild cellulitis around the proximal drain site. Ortho Spine will continue to follow. Marcial Vu Jr., MD Learning Solutions Specialist Department of Orthopaedic Surgery Division of Spine Surgery [facility] [employer] [place], [place] [employer] done by [employer]; therefore, variances and inaccuracies may occur. * Giovanna Cazares MD - 11/29/2023 7:07 PM CSTAssociated Order(s): IP CONSULT TO VASCULAR SURGERY Images from the original note were not included. VASCULAR SURGERY [facility] CONSULTATION NOTE Admit Date: 11/29/2023 Current Service: Medical Current Location: [id number] Requesting Consult: Jolynn Cabrera* Consult Provider: Resident - Debora / Attending - Dr. Barron Reason for Consult: Evaluation for extensive bilateral lower extremity DVTs` Patient Name: Hira Evans Age: 73 y.o. : 1950 Assessment: Hira Evans is a 73 y.o. male with hx recent L4-5 PSF (10/23/23) c/b postop cardiac arrestand bilateral PE on AC c/b spinal hematoma requiring emergent decompression (11/08/22) resulting in BLE paraplegia s/p IVC filter (11/09) now re-admitted from [facility] w/ concern for bilateral DVT. Given patient's history of post-operative spinal hemorrhage resulting in paraplegia, the feasibility of anticoagulation needs to be discussed with the orthospine team. If patient cannot receive therapeutic anticoagulation given his increased risk, he is not a candidate for intervention and would recommend conservative measures including compression and elevation for symptomatic relief. If orthospine in agreement with therapeutic anticoagulation, will need further diagnostic workup to evaluate the extentof his thromboses. This was discussed with the primary team with recommendations as outlined below. Plan: - Primary team to discuss therapeutic anticoagulation with orthospine team - If patient is deemed to be a candidate for therapeutic anticoagulation by orthospine, recommend further workup with venous duplex and CT venogram to evaluate extent of DVT - Vascular surgery will continue to follow peripherally The care plan above has been discussed with attending physician, Dr. Barron. Giovanna Cazares MD Vascular Consult Vascular Inpatient Floor V[facility] Outpatient [facility] Information was obtained from patient and past medical records. History of Present Illness: Hira Evans is a 73 y.o. male with hx recent L4-5 PSF (10/23/23) c/b postop cardiac arrestand bilateral PE on AC c/b spinal hematoma requiring emergent decompression (11/08/22) resulting in BLE paraplegia s/p IVC filter (11/09) now re-admitted from [facility] w/ concern for bilateral DVT. Patient was discharged to [facility] on 11/16 following post-operative complication after spinal fusion involving epidural hematoma requiring emergent evacuation and lumbar repair. He returned to ED on 11/19 with UTI (Enterobacter cloacae) and remains on macrobid with harris that was placed over wire by urology at that time. Since last Sunday, patient was noted to have progressive bilateral lower extremity edema.One week ago on 11/23, he was noted on [facility] duplex to reportedly have DVT involving bilateral common femoral veins and right popliteal vein. He was directly admitted today for hematology and vascularsurgery evaluation. He has had worsening edema which now extends to his abdomen as well as substantial scrotal swelling. Past Medical: Past Medical History: Diagnosis Date Allergic rhinitis Arthritis OA Cancer (CMS/HCC) (HCC) prostate and melonomia Cauda equina compression (HCC) DVT (deep venous thrombosis) (CMS/HCC) (HCC) Gastric reflux GERD (gastroesophageal reflux disease) History of melanoma Hypertension Kidney stone Personal history of prostate cancer Pneumonia Pulmonary embolism (HCC) Seasonal allergies Surgical History: Past Surgical History: Procedure Laterality Date FL UPPER GI AIR CONTRAST W KUB Left 09/21/2023 INSERT VENA CAVA FILTER N/A 11/09/2023 JOINT REPLACEMENT Right 2013 right knee replacement MELANOMA RESECTION Right 2005 right flank PERCUTANEOUS NEPHROSTOMY PCN LEFT Left 10/14/2023 PROSTATECTOMY 2009 REPLACEMENT TOTAL KNEE Left 10/17/2021 REVISION TOTAL KNEE ARTHROPLASTY Right 09/30/2019 VASECTOMY 30 years ago Home Medications: HOME MEDICATIONS : acetaminophen 500 mg capsule acyclovir (ZOVIRAX) 400 mg tablet bisacodyL (DULCOLAX) 10 mg suppository cephalexin (KEFLEX) 500 mg capsule cholecalciferol (VITAMIN D-3) 5,000 unit capsule cyclobenzaprine (FLEXERIL) 5 mg tablet DILT-XR 240 mg 24 hr capsule gabapentin (NEURONTIN) 300 mg capsule levETIRAcetam (KEPPRA) 1,000 mg tablet loratadine (CLARITIN) 10 mg tablet Mounjaro 10 mg/0.5 mL pen injector nitrofurantoin monohydrate (MACROBID) 100 mg capsule nystatin powder omeprazole (PriLOSEC) 20 mg capsule psyllium husk, with dextrose, 3.4 gram/ 6.5 gram powder senna-docusate (PERICOLACE) 8.6-50 mg tamsulosin (FLOMAX) 0.4 mg extended release capsule traMADoL (ULTRAM) 50 mg tablet cetirizine (ZyrTEC) 10 mg tablet coenzyme Q10 100 mg capsule enoxaparin (LOVENOX) 40 mg/0.4 mL syringe irbesartan (AVAPRO) 150 mg tablet Allergies: No Known Allergies Family History: Reviewed. Family History Problem Relation Age of Onset Heart disease Mother Lung disease Mother Alcohol abuse Father Cancer Father Heart disease Other Family history of cardiac disorder - (Added by PERLA Conv) Cancer Other Family history of malignant neoplasm - (Added by PERLA Conv) Anesthesia problems Neg Hx Social History: Social History Tobacco Use Smoking status: Former Packs/day: 1.00 Years: 8.00 Additional pack years: 0.00 Total pack years: 8.00 Types: Cigarettes Start date: 11/05/1968 Quit date: 11/05/1979 Years since quittin.0 Passive exposure: Past Smokeless tobacco: Never Vaping Use Vaping Use: Never used Substance and Sexual Activity Alcohol use: Yes Alcohol/week: 14.0 standard drinks of alcohol Types: 14 Glasses of wine per week Comment: social Drug use: Yes Frequency: 7.0 times per week Types: Medical marijuana Comment: MJ = edibles daily for pain; Alcohol = 2 glasses of wine per evening Sexual activity: Yes Partners: Female control/protection: Vasectomy Review of Systems Constitutional: Negative for weight loss, anorexia, fevers, chills Eyes: Negative for changes in vision or ocular discharge Ears, nose, mouth, and throat: Negative for ear pain, nasal drainage, sore throat Respiratory: Negative for wheezing, cough, shortness of breath Cardiovascular: Negative for chest pain; +positive for pedal edema Gastrointestinal: Negative for hemetemesis, hematochezia, constipation, diarrhea, nausea, abdominalpain Genitourinary: Negative for dysuria, hematuria; +positive for scrotal swelling, urinary retention Skin: Negative for pruritis, rash Hematologic/lymphatic: Negative for easy bruising, night sweats Musculoskeletal:Negative for back pain, neck pain Neurological: Negative for headaches, seizures Objective: Ht:172.7 cm (5' 8 ) Wt:81.6 kg (179 lb 14.3 oz) Body mass index is 27.35 kg/m??. BP 122/70 (BP Location: Right arm, Patient Position: HOB 30 degrees) Pulse 72 Temp 36.7 ??C (98.1 ??F) (Oral) Resp 18 Ht 172.7 cm (5' 8 ) Wt 81.6 kg (179 lb 14.3 oz) SpO2 100% BMI 27.35kg/m?? Physical exam: General: alert, voice strong, clear speech HEENT: moist mocosa, EOM intact, pupils equally round and reactive to light CV: normal rhythm, normal rate Pulmonary: unlabored breathing, symmetric chest rise Abdominal: soft, nondistended Groin: +significant scrotal edema; harris with purulent discharge around catheter Psychiatric: normal mood/affect Neurologic: alert and oriented x3; BLE paralysis Ext: pink and warm, 2+ lower extremity edema to hips Skin: dry, no cyanosis, no rashes or cutaneous lesions, no ulcers or trophic skin change Pulses: Right Radial: palpable Right Femoral: palpable Right DP: palpable Right PT: palpable Left Radial: palpable Left Femoral: palpable Left DP: palpable Left PT: palpable DATA REVIEW: I have independently reviewed all findings below with notable findings addressed in Assessment/Plan. Lab Results Component Value Date GLUCOSE 115 11/29/2023 CALCIUM 8.9 11/29/2023 SODIUM 133 (L) 11/29/2023 POTASSIUM 4.5 11/29/2023 CO2 24 11/29/2023 CHLORIDE 99 11/29/2023 BUNSER 29 (H) 11/29/2023 CREATININE 0.94 11/29/2023 Lab Results Component Value Date WBC 8.1 11/29/2023 HGB 7.7 (L) 11/29/2023 HCT 23.9 (L) 11/29/2023 MCV 95.2 11/29/2023 LABPLAT 150 11/29/2023 Imaging: No recent vascular imaging. Assessment/Plan: Please see top of note. Cosigned by Marcial Barron MD at 11/30/2023 7:08 AM BOIL OFF WORKER OFF WORKER OFF WORKER Associated attestation - Marcial Barron MD - 11/30/2023 7:08 AM BOIL OFF WORKER I have seen and examined the patient on 11/30/23. I agree with the findings and plan of care as documented in the resident's/fellow's note. and with the following modifications:CTV reviewed, shows thrombus at the level of the IVC filter, likely occluded distally. Discussed with patient, but no sensory changes/pain/etc. Main complaint is scrotal swelling and discomfort. He is being trialed on low dose AC, but at the moment it is unclear that he would benefit from thrombectomy, and the patency would be markedly lower given the loss of pump function of his calf. We will follow.. documented in this encounter Nursing Notes * Angelina Thomas RN - 12/10/2023 4:43 PM CST PIV removed. Patient and spouse packed belongings. Per OT/MD, can keep on unless [facility] cannot remove. Unable to get a hold of anyone at [facility] to inquire. Asked patient if he would like RN to remove, he prefers it to stay to continue to help with swelling. Informed patient how to remove, as will need to be removed tomorrow per OT. OFF WORKER * Mary Meléndez RN - 12/02/2023 6:36 PM CST Attempted to call [facility] in regards to blood stop time but no answer. charge nurse notified. Will notify overnight associate. OFF WORKER * Daisy Barnes RN - 11/29/2023 4:54 PM CST Pt arrived in [id number] notified attending MD Jolynn Cabrera OFF WORKER documented in this encounter Miscellaneous Notes * Provider Query - Jimenez Henao MD - 12/10/2023 5:00 PM BOIL OFF WORKER Specify the stage of Chronic Kidney Disease and document in the medical record and on the form below. _x__ Chronic Kidney Disease, Stage 1 (GFR greater than or equal to 90)* ___ Chronic Kidney Disease, Stage 2 (Mild) (GFR 60-89)* ___ Other, specify below Additional Provider Response: Clinical Indicators/Treatments: Patient is a 73 year old male with PMHx of CKD, HTN, prediabetes, and anemia who presented on 11/29/23 after experiencing edema due to DVT. Consult 11/29/23 by Hayden Youngblood MD: Relevant PMHx: postop cardiac arrest and b/l PE s/p therapeutic anticoagulation c/b hematoma and cauda equina s/p decompression 11/08/23, prostate CA s/p prostatectomy, GERD, obesity, CKD, UTI, melanoma eGFR Lab Results: >90 11/30/23 01:58 80 12/02/23 02:14 75 12/07/23 01:57 >90 12/09/23 21:05 Creatinine Lab Results: 0.86 11/30/23 01:58 1.00 12/02/23 02:14 0.91 12/02/23 23:24 0.80 12/05/23 23:24 1.05 12/07/23 01:57 0.83 12/08/23 05:01 0.77 12/09/23 21:05 /References: From the ICD-10-CM Official Guidelines for Coding and Reporting, use of terms such as likely, suspected, possible, or probable (associated with a specific diagnosis that is being evaluated, monitored, or treated as if it exists) are acceptable and can be coded in the inpatient setting when documented at the time of discharge. Chronic Kidney Disease (CKD) Criteria Chronic Kidney Disease (CKD or chronic renal failure) is defined as abnormalities of kidney structure or function, present for >3 months, with implications for health. Criteria: Duration >3 months, based on documentation or inference and GFR <60 ml/min/1.73 m2 or Kidney damage as defined by structural abnormalities or functional abnormalities other than decreased GFR (albuminuria, urinary sediment abnormalities, renal tubular disorders, pathologic abnormalities detected by histology or inferred, structural abnormalities detected by imaging, history of renaltransplant 5 Stages of CKD based on stable baseline GFR Stage GFR 1 >= 90* 2 (mild) 60-89* 3a (mild to moderate) 45-59 3b (moderate to severe) 30-44 4 (severe) 15-29 5 <15 ESRD <15 and requiring chronic dialysis *Stage 1 and 2 cannot be applied unless there is at least one marker of kidney damage. The creatinine level must be stable to adequately diagnose CKD. Use the GFR based on the lowest creatinine level (higher GFR) should be used as the baseline for staging. Historical labs (prior three months) will provide a more reliable GFR on which to base a diagnosis of CKD. If provider believes patient has chronic kidney disease in the absence of above clinical indicators, please document rationale and clinical impression in detail Chronic Kidney Disease References Kdigo[employer]. 2020. [online] Available at: <https://kdigo.org/wp-content/uploads//[email or web address]_CKD_GL.pdf> [Accessed 24 August 2020]. Cata Duncan and Shai Naqvi, 20152019 ACDIS Pocket Guide. [employer], a [employer] Compliance Brand, pp.285-289. [employer]. 2020. [online] Available at: <[email or web address]-content/[email or web address].[email or web address]> [Accessed 24 August 2020]. This documentation will become part of the patient???s medical record. Sincerely, [facility] Information Management OFF WORKER * Plan of Care - Angelina Thomas RN - 12/10/2023 3:46 PM CST Goals: Clinical Goals for the Shift: Monitor VS, neuro checks Summary: Problem: Health Behavior: Goal: Understanding of discharge needs will improve Outcome: Adequate for Discharge Problem: Activity: Goal: Mobility will improve Outcome: Adequate for Discharge Problem: Lack of Knowledge: Goal: Understanding of ways to prevent future skin breakdown will improve Outcome: Adequate for Discharge Goal: Ability to identify appropriate dietary choices will improve Outcome: Adequate for Discharge Problem: Nutritional: Goal: Dietary intake will improve Outcome: Adequate for Discharge Goal: Ability to maintain a balanced intake and output will improve Outcome: Adequate for Discharge Problem: Skin Integrity: Goal: Risk for impaired skin integrity will decrease Outcome: Adequate for Discharge Goal: Ability to demonstrate warm and dry skin will improve Outcome: Adequate for Discharge Goal: Circulation will improve to fullest extent possible Outcome: Adequate for Discharge Problem: Lack of Knowledge: Goal: Ability to develop a pain control plan will improve Outcome: Adequate for Discharge Goal: Ability to identify pain intensity on a pain scale and rate it consistently will improve Outcome: Adequate for Discharge Goal: Ability to notify healthcare provider of pain before it becomes unmanageable or unbearable will improve Outcome: Adequate for Discharge Problem: Medication: Goal: Satisfaction with pain management regimen will improve Outcome: Adequate for Discharge Problem: Sensory: Goal: Ability to identify factors that increase the pain will improve Outcome: Adequate for Discharge Goal: Pain level will decrease Outcome: Adequate for Discharge Problem: Lack of Knowledge: Goal: Ability to state ways to decrease the risk of falls will improve Outcome: Adequate for Discharge Problem: Safety: Goal: Will remain free from falls Outcome: Adequate for Discharge Goal: Will remain free from injury from falls Outcome: Adequate for Discharge Goal: Will remain free from falls and injury in home environment Outcome: Adequate for Discharge Problem: Lack of Knowledge: Goal: Ability to describe self-care measures that may prevent or decrease complications will improve Outcome: Adequate for Discharge Goal: Knowledge of disease or condition will improve Outcome: Adequate for Discharge Goal: Knowledge of the prescribed therapeutic regimen will improve Outcome: Adequate for Discharge Goal: Knowledge of prevention and discharge planning will improve Outcome: Adequate for Discharge Problem: Coping: Goal: Ability to adjust to condition or change in health will improve Outcome: Adequate for Discharge Problem: Fluid Volume: Goal: Ability to maintain a balanced intake and output will improve Outcome: Adequate for Discharge Problem: Health Behavior: Goal: Ability to identify and alter actions that are detrimental to health will improve Outcome: Adequate for Discharge Goal: Ability to identify and utilize available resources and services will improve Outcome: Adequate for Discharge Goal: Ability to manage health-related needs will improve Outcome: Adequate for Discharge Problem: Nutritional: Goal: Maintenance of adequate nutrition will improve Outcome: Adequate for Discharge Goal: Progress toward achieving an optimal weight will improve Outcome: Adequate for Discharge Problem: Physical Regulation: Goal: Complications related to the disease process, condition or treatment will be avoided or minimized Outcome: Adequate for Discharge Goal: Diagnostic test results will improve Outcome: Adequate for Discharge Problem: Skin Integrity: Goal: Risk for impaired skin integrity will decrease Outcome: Adequate for Discharge OFF WORKER * Consults, Subsequent - Jessenia Ash MD - 12/10/2023 1:56 PM BOIL OFF WORKER Brief Urology Note Primary team reached out due to [facility] wanting catheter exchanged prior to acceptance, and required wire for initial harris placement. Catheter was placed 11/19/23. He has a negative urine culture on 11/30/23. He has follow-up for second look ureteroscopy scheduled on 12/25/23. Current harris catheter can remain in place until he returns on 12/25/23, at which time we can evaluate urethra and possibly remove catheter and resume CIC vs. exchanging catheter at that time. Jessenia Ash MD Resident Physician, Urology 12/10/23 OFF WORKER * Plan of Care - Madison Ma RN - 12/10/2023 12:27 PM CST Per Medical Chart/Rounds/IDR: 73 year old male patient admitted for DVT. Per IDR rounds with Graphics Intern, Dressmaking Teacher, Charge Nurse, and MD, the patient is medically stable for discharge at this time. CM received notice that patient's insurance has been approved and patient has a bed today (12/10). CMnotified MD. indicated that urology plans to replace patient's catheter this afternoon. CM made liaison Fifi aware of catheter plan and that patient may have to come on 12/11. Fifi acknowledged and also confirmed that JOHNNYJef Malin will be able to bring patient back for any outpatient urology appointments that are on [facility] campus. ADD: 12/11 Plan & referrals made/in place: [facility] Malin/Fifi: [phone] Support following discharge: facility/family Transportation: EMS F/U Appointments: patient to discharge to IR[facility] Patient's Identified Problem/Goal Problem: Ensure acute medical needs are met and that patient has a safe discharge plan. Goal: Secure a discharge plan that patient/family are agreeable with and ensure patient has continuum of care. Patient and/or family are agreeable with plan. inside sales account manager will continue to follow and assist with discharge planning as needed. If any further discharge needs arise, please contact the covering rn case manager. ARNULFO Romeo, seismic interpreter OFF WORKER * Plan of Care - Seth Arias RN - 12/10/2023 12:39 AM CST Problem: Health Behavior: Goal: Understanding of discharge needs will improve 12/10/202338 by Seth Arias RN Outcome: Progressing 12/10/202337 by Seth Arias RN Outcome: Progressing Problem: Activity: Goal: Mobility will improve 12/10/202338 by Seth Arias, NARENDRA Outcome: Progressing 12/10/202337 by Seth Arias RN Outcome: Progressing Problem: Lack of Knowledge: Goal: Understanding of ways to prevent future skin breakdown will improve 12/10/202338 by Seth Arias RN Outcome: Progressing 12/10/202337 by Seth Arias RN Outcome: Progressing Goal: Ability to identify appropriate dietary choices will improve 12/10/202338 by Seth Arias RN Outcome: Progressing 12/10/202337 by Seth Arias RN Outcome: Progressing Goals: Clinical Goals for the Shift: q2 turns; sleep hygiene; neuro checks; monitor labs; monitor vitals OFF WORKER * Plan of Deny - Seth Arias RN - 12/10/2023 12:38 AM CST Problem: Health Behavior: Goal: Understanding of discharge needs will improve Outcome: Progressing Problem: Activity: Goal: Mobility will improve Outcome: Progressing Problem: Lack of Knowledge: Goal: Understanding of ways to prevent future skin breakdown will improve Outcome: Progressing Goal: Ability to identify appropriate dietary choices will improve Outcome: Progressing Goals: Clinical Goals for the Shift: q2 turns; sleep hygiene; neuro checks; monitor labs; monitor vitals OFF WORKER * Plan of Deny - Tia Riggins RN - 12/09/2023 8:13 AM CST Problem: Health Behavior: Goal: Understanding of discharge needs will improve Outcome: Progressing Problem: Activity: Goal: Mobility will improve 12/09/2023812 by Tia Riggins RN Outcome: Progressing 12/08/20231818 by Tia Riggins RN Outcome: Progressing Problem: Lack of Knowledge: Goal: Understanding of ways to prevent future skin breakdown will improve Outcome: Progressing Goal: Ability to identify appropriate dietary choices will improve Outcome: Progressing Problem: Nutritional: Goal: Dietary intake will improve 12/09/2023812 by Tia Riggins RN Outcome: Progressing 12/08/20231818 by Tia Riggins RN Outcome: Progressing Goal: Ability to maintain a balanced intake and output will improve Outcome: Progressing Problem: Skin Integrity: Goal: Risk for impaired skin integrity will decrease 12/09/2023812 by Tia Riggins RN Outcome: Progressing 12/08/20231818 by Tia Riggins RN Outcome: Progressing Goal: Ability to demonstrate warm and dry skin will improve 12/09/2023812 by Tia Riggins RN Outcome: Progressing 12/08/20231818 by Tia Riggins RN Outcome: Progressing Goal: Circulation will improve to fullest extent possible 12/09/2023812 by Tia Riggins RN Outcome: Progressing 12/08/20231818 by Tia Riggins RN Outcome: Progressing Problem: Lack of Knowledge: Goal: Ability to develop a pain control plan will improve 12/09/2023812 by Tia Riggins RN Outcome: Progressing 12/08/20231818 by Tia Riggins RN Outcome: Progressing Goal: Ability to identify pain intensity on a pain scale and rate it consistently will improve 12/09/2023812 by Tia Riggins RN Outcome: Progressing 12/08/20231818 by Tia Riggins RN Outcome: Progressing Goal: Ability to notify healthcare provider of pain before it becomes unmanageable or unbearable will improve 12/09/2023812 by Tia Riggins RN Outcome: Progressing 12/08/20231818 by Tia Riggins RN Outcome: Progressing Problem: Medication: Goal: Satisfaction with pain management regimen will improve Outcome: Progressing Goals: Clinical Goals for the Shift: q2 turns; sleep hygiene; neuro checks; monitor labs; monitor vitals OFF WORKER * Plan of Deny - Seth Arias RN - 12/08/2023 11:54 PM CST Problem: Health Behavior: Goal: Understanding of discharge needs will improve Outcome: Progressing Problem: Activity: Goal: Mobility will improve Outcome: Progressing Problem: Lack of Knowledge: Goal: Understanding of ways to prevent future skin breakdown will improve Outcome: Progressing Goal: Ability to identify appropriate dietary choices will improve Outcome: Progressing Problem: Nutritional: Goal: Dietary intake will improve Outcome: Progressing Goal: Ability to maintain a balanced intake and output will improve Outcome: Progressing Goals: Clinical Goals for the Shift: q2 turns; sleep hygiene; neuro checks; monitor labs; monitor vitals OFF WORKER * Plan of Care - Tia Riggins RN - 12/08/2023 11:00 AM CST Problem: Activity: Goal: Mobility will improve Outcome: Progressing Problem: Lack of Knowledge: Goal: Understanding of ways to prevent future skin breakdown will improve Outcome: Progressing Goal: Ability to identify appropriate dietary choices will improve Outcome: Progressing Problem: Nutritional: Goal: Dietary intake will improve Outcome: Progressing Goal: Ability to maintain a balanced intake and output will improve Outcome: Progressing Problem: Skin Integrity: Goal: Risk for impaired skin integrity will decrease Outcome: Progressing Goal: Ability to demonstrate warm and dry skin will improve Outcome: Progressing Goal: Circulation will improve to fullest extent possible Outcome: Progressing Problem: Lack of Knowledge: Goal: Ability to develop a pain control plan will improve Outcome: Progressing Goal: Ability to identify pain intensity on a pain scale and rate it consistently will improve Outcome: Progressing Goal: Ability to notify healthcare provider of pain before it becomes unmanageable or unbearable will improve Outcome: Progressing Goals: Clinical Goals for the Shift: q2 turns; sleep hygiene; neuro checks; monitor labs; monitor vitals OFF WORKER * Plan of Hood Mendosa RN - 12/08/2023 12:00 AM BOIL OFF WORKER Problem: Health Behavior: Goal: Understanding of discharge needs will improve Outcome: Progressing Problem: Activity: Goal: Mobility will improve Outcome: Progressing Problem: Lack of Knowledge: Goal: Understanding of ways to prevent future skin breakdown will improve Outcome: Progressing Goal: Ability to identify appropriate dietary choices will improve Outcome: Progressing Problem: Nutritional: Goal: Dietary intake will improve Outcome: Progressing Goal: Ability to maintain a balanced intake and output will improve Outcome: Progressing Problem: Skin Integrity: Goal: Risk for impaired skin integrity will decrease Outcome: Progressing Goal: Ability to demonstrate warm and dry skin will improve Outcome: Progressing Goal: Circulation will improve to fullest extent possible Outcome: Progressing Problem: Lack of Knowledge: Goal: Ability to develop a pain control plan will improve Outcome: Progressing Goal: Ability to identify pain intensity on a pain scale and rate it consistently will improve Outcome: Progressing Goal: Ability to notify healthcare provider of pain before it becomes unmanageable or unbearable will improve Outcome: Progressing Problem: Medication: Goal: Satisfaction with pain management regimen will improve Outcome: Progressing Problem: Sensory: Goal: Ability to identify factors that increase the pain will improve Outcome: Progressing Goal: Pain level will decrease Outcome: Progressing Problem: Lack of Knowledge: Goal: Ability to state ways to decrease the risk of falls will improve Outcome: Progressing Problem: Safety: Goal: Will remain free from falls Outcome: Progressing Goal: Will remain free from injury from falls Outcome: Progressing Goal: Will remain free from falls and injury in home environment Outcome: Progressing Problem: Lack of Knowledge: Goal: Ability to describe self-care measures that may prevent or decrease complications will improve Outcome: Progressing Goal: Knowledge of disease or condition will improve Outcome: Progressing Goal: Knowledge of the prescribed therapeutic regimen will improve Outcome: Progressing Goal: Knowledge of prevention and discharge planning will improve Outcome: Progressing Problem: Coping: Goal: Ability to adjust to condition or change in health will improve Outcome: Progressing Problem: Fluid Volume: Goal: Ability to maintain a balanced intake and output will improve Outcome: Progressing Problem: Health Behavior: Goal: Ability to identify and alter actions that are detrimental to health will improve Outcome: Progressing Goal: Ability to identify and utilize available resources and services will improve Outcome: Progressing Goal: Ability to manage health-related needs will improve Outcome: Progressing Problem: Nutritional: Goal: Maintenance of adequate nutrition will improve Outcome: Progressing Goal: Progress toward achieving an optimal weight will improve Outcome: Progressing Problem: Physical Regulation: Goal: Complications related to the disease process, condition or treatment will be avoided or minimized Outcome: Progressing Goal: Diagnostic test results will improve Outcome: Progressing Problem: Skin Integrity: Goal: Risk for impaired skin integrity will decrease Outcome: Progressing Goals: Clinical Goals for the Shift: q2 turns; sleep hygiene; neuro checks; monitor labs; monitor vitals Summary: Denies pain, turning frequently when awake. Edema grossly unchanged. Carolin care done OFF WORKER * Provider Query - Jimenez Henao MD - 12/07/2023 3:10 PM BOIL OFF WORKER Clinical Indicators/Treatments: 11/29 Medicine H&P: UTI -Patient diagnosed with UTI in setting of harris on 11/21 with growth of Enterobacter cloacae. Denies symptoms, though was noted to have leukocytosis that has improved. No urinary complaints at this time. Continued on Bactrim. Specify the confirmed or suspected relationship between the Urinary Tract Infection and the urinarycatheter, (see the approved [facility] guidelines below). A cause and effect relationship between diagnoses may not be assumed and must be documented by the provider. Clarify if the Urinary Tract Infection (UTI) is: ___Related to or due to the urinary catheter ___Not related to or due to the urinary catheter ___Other, specify below _x_Clinically unable to determine Additional Provider Response: Patient with + urine culture with exchanged harris catheter >1 day but <2 days prior. No reported symptoms from available documentation at that time. On further evaluation 11/28/23, patient asymptomatic without change in imaging findings from prior scan 11/19/23. Patient was empirically treated with nitrofurantoin --> [id number] References: From the ICD-10-CM Official Guidelines for Coding and Reporting, use of terms such as likely, suspected, possible, or probable (associated with a specific diagnosis that is being evaluated, monitored, or treated as if it exists) are acceptable and can be coded in the inpatient setting when documented at the time of discharge. Diagnosis Findings Signs and Symptoms Asymptomatic Bacteriuria Culture growth of uropathogenic bacteria, irrespective of the presence of pyuria, Absence of signs or symptoms attributable to UTI UTI Culture growth of uropathogenic bacteria. Presence of signs and symptoms. Usually have urinalysis showing pyuria. Fever. Flank or suprapubic discomfort. Burning w/ urination, dysuria, frequency, urgency, voiding in small amounts (not typically reportedby those with indwelling catheters). Confusion or AMS in elderly patients (rarely with or without other symptoms). CAUTI Culture growth of >=105 cfu/mL of uropathogenic bacteria. No more than 2 species of organisms identified. Indwelling urethral catheter or indwelling suprapubic catheter for greater than 2 consecutive days Or catheter removed the day of or the day before the UTI occurred Asymptomatic bacteriuria is common with catheters and should not be documented as CAUTI Fever. Flank or suprapubic discomfort. Burning w/ urination, dysuria, frequency, urgency, voiding in small amounts (not typically reportedby those with indwelling catheters). Confusion or AMS in elderly patients (rarely with or without other symptoms). Lab findings suggestive of UTI or CAUTI can include: - Pyuria: White blood cells seen on urinalysis (usually >10, can be lower in neutropenic patients) Pyuria is not diagnostic of CAUTI but will lead to a urine culture - Urine culture* colony count > 100,000 cfu/ml with voided specimen or catheterized specimen *In patients who have failed outpatient treatment, culture may be negative due to previous antibiotic use Sources: CDC/NHSN Definition of CAUTI and UTI, 2009 International Clinical Practice Guidelines fromIDSA, AHA Coding Clinics 2008 and 2011 and ID Society practice guidelines for asymptomatic bacteriuria This documentation will become part of the patient???s medical record. Belen Gregory RN BSN CCDS Clinical [employer] [facility] [phone] [email or web address] OFF WORKER * Provider Query - Jimenez Henao MD - 12/07/2023 3:09 PM BOIL OFF WORKER Clinical Indicators/Treatments: 12/04 PMR consult: 73 y.o. male with PMH of recent L4-5 PSF c/b post-op cardiac arrest, rib fractures from CPR, and b/l PE on therapeutic anticoagulation, GERD, CKD, b/l total knee replacements, melanoma, and prostate CA s/p prostatectomy, who was admitted to [facility] on 11/29/2023 for sudden onset BLE numbness and inability to ambulate consistent with cauda equina syndrome, who was found to have dorsal epidural and subdural hematoma from T5-S1. Patient underwent T5-L5 laminectomy and hematoma evacuation with Dr. Vu. He had IVC filter placed. Patient was discharged to [facility] where he had good participation with therapy, but was found to haveBLE DVT (extensive - from groin down) and worsening BLE edema which interfered with participation in therapy. He was transferred back to [facility] where he ws initiated on heparin gtt with plan to transition to lovenox BID. Current Functional Status: Mod-max assist with mobility, mod-dependent with ADLs On fall precautions. PT/OT consulted. [employer] Isotour mattress ordered. Specify a diagnosis that reflects the patient???s level of strength and mobility on admission, and document in the medical record and on the form below. Select all that apply: ___Age related physical debility (frailty) _x_Limitation of activity due to disability ___Bedridden/Bed Confinement ___Reduced Mobility ___Other, specify below Additional Provider Response: References: General Debility and Chronic Fatigue Documentation Practices To accurately represent patient acuity under CMS risk-adjustment methodology, please consider and document the following diagnoses, when applicable. Age-related physical debility Postviral fatigue syndrome Consider in patients with excessive and persistent fatigue following a viral illness, such as COVID-19 Myalgic encephalopmyelitis/chronic fatigue syndrome Other post-infection and related fatigue syndromes Neoplastic related fatigue The only diagnostic criteria is if the patient reports fatigue. May also report weariness, malaise,apathy, lassitude, or burnout. Characterized by excessive and persistent exhaustion that is disproportionate to the task done, often interfering with daily activity. Exhibited in 70-100% of patients with cancer. Often begins prior to diagnosis, worsens during treatment, and may persist for months or years after treatment ends Functional Quadriplegia Chronic fatigue Limitation of activities due to disability Bed confinement status Other reduced mobility Applicable to those with impaired mobility, requiring dependence on care providers. May require extensive PT/OT, bhavna lifts, mobility devices/aids, etc. Debility References Functional Quadriplegia. ICD-9-CM Coding Clinic, 2007 Page: 143 Effective with discharges: [facility]: Cancer Fatigue From the ICD-10-CM Coding Guidelines, use of terms such as likely, suspected, possible, or probable(associated with a specific diagnosis that is being evaluated, monitored, or treated as if it exists) are acceptable and can be coded in the inpatient setting when documented at the time of discharge. This documentation will become part of the patient???s medical record. Belen Gregory RN BSN [facility] Clinical [employer] [facility] [phone] [email or web address] OFF WORKER * Provider Query - Jimenez Henao MD - 12/07/2023 3:08 PM BOIL OFF WORKER Specify the significance of the abnormal BMI (body mass index) and document in the medical record and on the form below. Clinical Indicators/Treatments: BMI 33.05 on admission with weight 217 lbs. [place] weight 150 lbs. Elevated BMI ___Obesity _x_Other, specify below Additional Provider Response: Patient with acute onset of bilateral lower extremity edema secondary to extensive DVT References: From the ICD-10-CM Official Guidelines for Coding and Reporting, use of terms such as likely, suspected, possible, or probable (associated with a specific diagnosis that is being evaluated, monitored, or treated as if it exists) are acceptable and can be coded in the inpatient setting when documented at the time of discharge. BMI definitions per www.NHLBI.nih.gov BMI Weight Status <18.5 Underweight 18.5 to 24.9 Normal/Healthy 25 to 29.9 Overweight 30 to 39.9 Obesity >40 Extreme Obesity (Morbid) This documentation will become part of the patient???s medical record. NARENDRA Telles [facility] Clinical [employer] [facility] [phone] [email or web address] OFF WORKER * Consults, Subsequent - Nazario Lynn MD - 12/07/2023 2:33 PM BOIL OFF WORKER Physiatry Follow Up HPI Hira Evans is a 73yo man with recent L4-L5 PSF with post-operative cardiac arrest in setting of PE with initiation of anticoagulation c/b development of small Bilateral SDH, Left perinephric hematoma, and T5-S1 epidural hematoma causing paraplegia s/p T5-L5 laminectomy and evacuation and placement of IVC filter and suspension of anticoagulation, with development of IVCf-associated DVT extendingto Bilateral posterior tibial and peroneal veins with progressive edema for which he was transferred from inpatient rehab to [facility] on 11/29, with initiation of anticoagulation, continuing on lovenox. He is seen today for rehabilitation follow up. He feels okay, with good appetite and no dyspnea. Heendorses persistent bowel dysfunction. PMH/PSH : Past Medical History: Diagnosis Date Allergic rhinitis Arthritis OA Cancer (CMS/HCC) (HCC) prostate and melonomia Cauda equina compression (HCC) DVT (deep venous thrombosis) (CMS/HCC) (HCC) Gastric reflux GERD (gastroesophageal reflux disease) History of melanoma Hypertension Kidney stone Personal history of prostate cancer Pneumonia Pulmonary embolism (HCC) Seasonal allergies Past Surgical History: Procedure Laterality Date FL UPPER GI AIR CONTRAST W KUB Left 09/21/2023 INSERT VENA CAVA FILTER N/A 11/09/2023 JOINT REPLACEMENT Right 2013 right knee replacement MELANOMA RESECTION Right 2005 right flank PERCUTANEOUS NEPHROSTOMY PCN LEFT Left 10/14/2023 PROSTATECTOMY 2009 REPLACEMENT TOTAL KNEE Left 10/17/2021 REVISION TOTAL KNEE ARTHROPLASTY Right 09/30/2019 VASECTOMY 30 years ago Functional Status: Prehospitalization: Independent with ADLs and mobility, walking > 10,000steps daily Current: Bed mobility modA x2 Transfer modA x2 Family history: Family History Problem Relation Age of Onset Heart disease Mother Lung disease Mother Alcohol abuse Father Cancer Father Heart disease Other Family history of cardiac disorder - (Added by TW Conv) Cancer Other Family history of malignant neoplasm - (Added by TW Conv) Anesthesia problems Neg Hx Social history Social History Tobacco Use Smoking status: Former Packs/day: 1.00 Years: 8.00 Additional pack years: 0.00 Total pack years: 8.00 Types: Cigarettes Start date: 11/05/1968 Quit date: 11/05/1979 Years since quittin.1 Passive exposure: Past Smokeless tobacco: Never Vaping Use Vaping Use: Never used Substance and Sexual Activity Alcohol use: Yes Alcohol/week: 14.0 standard drinks of alcohol Types: 14 Glasses of wine per week Comment: social Drug use: Yes Frequency: 7.0 times per week Types: Medical marijuana Comment: MJ = edibles daily for pain; Alcohol = 2 glasses of wine per evening Sexual activity: Yes Partners: Female control/protection: Vasectomy Lives with in a house with 2STE. PHYSICAL EXAMINATION BP 114/74 (BP Location: Right arm, Patient Position: HOB 30 degrees) Pulse 68 Temp 36.7 ??C (98.1 ??F) (Oral) Resp 18 Ht 172.7 cm (5' 8 ) Wt 98.6 kg (217 lb 6 oz) SpO2 98% BMI 33.05 kg/m?? General: no acute distress, seated in bed HEENT: normocephalic Respiratory: CTAB, normal WOB Cardiovascular: bradycardic regular rhythm, no murmur Gastrointestinal: soft, distended, normoactive bowel sounds : indwelling catheter draining yellow urine Skin: papular rash overlying Right anterior mid-leg Extremities: reduced 3+ pitting edema of BLE Psych: appropriate affect, cooperative with exam Neuro: Sensorium: alert, conversant Lower Limb Motor: Right: ankle dorsiflexion <2/5, toe extension 2/5, toe flexion 2/5, ankle plantarflexion <2/5 Left: ankle dorsiflexion <2/5, toe extension 1/5, toe flexion 2/5, ankle plantarflexion <2/5 ASSESSMENT/RECOMMENDATIONS: A 73yo man with paraplegia due to T5-S1 epidural hematoma amidst anticoagulation for post-Lumbar PSF PE and cardiac arrest, s/p IVCf placement c/b associated DVT propagating to BLE with associated high volume edema. Recommendations: - Continue aggressive diuresis - Compressive wrap of BLE will be necessary when up throughout day for frequent therapies - Discussed frequent BUE exercise for strength maintenance Disposition: He will benefit from continuation of inpatient spinal cord injury rehabilitation with PT, OT, nursing care, and physiatric supervision, and ELOS 2 weeks. Please contact with any questions. Nazario Lynn [employer] Specialist Physical Medicine and Rehabilitation 35 minutes total collaborative time spent on hospital floor in face to face evaluation and discussion with patient and family member, in communication with medical and clinical care team, and in review and coordination and planning of patient care. OFF WORKER * Plan of Care - Tia Riggins RN - 12/07/2023 12:30 PM CST Problem: Activity: Goal: Mobility will improve Outcome: Progressing Problem: Skin Integrity: Goal: Risk for impaired skin integrity will decrease Outcome: Progressing Goal: Ability to demonstrate warm and dry skin will improve Outcome: Progressing Goal: Circulation will improve to fullest extent possible Outcome: Progressing Problem: Lack of Knowledge: Goal: Ability to develop a pain control plan will improve Outcome: Progressing Goal: Ability to identify pain intensity on a pain scale and rate it consistently will improve Outcome: Progressing Problem: Medication: Goal: Satisfaction with pain management regimen will improve Outcome: Progressing Problem: Sensory: Goal: Ability to identify factors that increase the pain will improve Outcome: Progressing Problem: Lack of Knowledge: Goal: Ability to state ways to decrease the risk of falls will improve Outcome: Progressing Problem: Safety: Goal: Will remain free from falls Outcome: Progressing Problem: Lack of Knowledge: Goal: Ability to describe self-care measures that may prevent or decrease complications will improve Outcome: Progressing Problem: Health Behavior: Goal: Ability to identify and alter actions that are detrimental to health will improve Outcome: Progressing Problem: Nutritional: Goal: Maintenance of adequate nutrition will improve Outcome: Progressing Goals: Clinical Goals for the Shift: q2 turns; sleep hygiene; neuro checks; monitor labs; monitor vitals OFF WORKER * Plan of Care - Mary Hoyos RN - 12/06/2023 10:52 PM BOIL OFF WORKER Goals: Clinical Goals for the Shift: q2 turns; sleep hygiene; neuro checks; monitor labs; monitor vitals Problem: Health Behavior: Goal: Understanding of discharge needs will improve Outcome: Progressing Problem: Activity: Goal: Mobility will improve Outcome: Progressing Problem: Lack of Knowledge: Goal: Understanding of ways to prevent future skin breakdown will improve Outcome: Progressing Goal: Ability to identify appropriate dietary choices will improve Outcome: Progressing Problem: Nutritional: Goal: Dietary intake will improve Outcome: Progressing Goal: Ability to maintain a balanced intake and output will improve Outcome: Progressing Problem: Skin Integrity: Goal: Risk for impaired skin integrity will decrease Outcome: Progressing Goal: Ability to demonstrate warm and dry skin will improve Outcome: Progressing Goal: Circulation will improve to fullest extent possible Outcome: Progressing Problem: Lack of Knowledge: Goal: Ability to develop a pain control plan will improve Outcome: Progressing Goal: Ability to identify pain intensity on a pain scale and rate it consistently will improve Outcome: Progressing Goal: Ability to notify healthcare provider of pain before it becomes unmanageable or unbearable will improve Outcome: Progressing Problem: Medication: Goal: Satisfaction with pain management regimen will improve Outcome: Progressing Problem: Sensory: Goal: Ability to identify factors that increase the pain will improve Outcome: Progressing Goal: Pain level will decrease Outcome: Progressing Problem: Lack of Knowledge: Goal: Ability to state ways to decrease the risk of falls will improve Outcome: Progressing Problem: Safety: Goal: Will remain free from falls Outcome: Progressing Goal: Will remain free from injury from falls Outcome: Progressing Goal: Will remain free from falls and injury in home environment Outcome: Progressing Problem: Lack of Knowledge: Goal: Ability to describe self-care measures that may prevent or decrease complications will improve Outcome: Progressing Goal: Knowledge of disease or condition will improve Outcome: Progressing Goal: Knowledge of the prescribed therapeutic regimen will improve Outcome: Progressing Goal: Knowledge of prevention and discharge planning will improve Outcome: Progressing Problem: Coping: Goal: Ability to adjust to condition or change in health will improve Outcome: Progressing Problem: Fluid Volume: Goal: Ability to maintain a balanced intake and output will improve Outcome: Progressing Problem: Health Behavior: Goal: Ability to identify and alter actions that are detrimental to health will improve Outcome: Progressing Goal: Ability to identify and utilize available resources and services will improve Outcome: Progressing Goal: Ability to manage health-related needs will improve Outcome: Progressing Problem: Nutritional: Goal: Maintenance of adequate nutrition will improve Outcome: Progressing Goal: Progress toward achieving an optimal weight will improve Outcome: Progressing Problem: Physical Regulation: Goal: Complications related to the disease process, condition or treatment will be avoided or minimized Outcome: Progressing Goal: Diagnostic test results will improve Outcome: Progressing Problem: Skin Integrity: Goal: Risk for impaired skin integrity will decrease Outcome: Progressing OFF WORKER * Wiliam Ma Madison, RN - 12/06/2023 2:14 PM CST Per Medical Chart/Rounds/IDR: 73 year old male patient admitted for DVT. Per IDR rounds with Graphics Intern, Dressmaking Teacher, Charge Nurse, and MD, the patient is not medicallystable for discharge at this time. Patient receiving IV lasix to reduce swelling and also needs anti factor Xa level drawn overnight to assess for dose adjustment for lovenox. ADD: 12/07 Plan & referrals made/in place: [facility] Malin/Fifi: [phone] 10:39 AM: CM provided Fifi update on patient status. CM to update Fifi after 10:00 a.m. DCAM as to whether or not authorization can be started. Support following discharge: facility/family Transportation: EMS F/U Appointments: patient to discharge to IR[facility] Patient's Identified Problem/Goal Problem: Ensure acute medical needs are met and that patient has a safe discharge plan. Goal: Secure a discharge plan that patient/family are agreeable with and ensure patient has continuum of care. Patient and/or family are agreeable with plan. inside sales account manager will continue to follow and assist with discharge planning as needed. If any further discharge needs arise, please contact the covering rn case manager. ARNULFO Romeo, seismic interpreter OFF WORKER * Plan of Care - Kayce Hopper RN - 12/06/2023 1:50 PM BOIL OFF WORKER Problem: Health Behavior: Goal: Understanding of discharge needs will improve Outcome: Ongoing Problem: Lack of Knowledge: Goal: Understanding of ways to prevent future skin breakdown will improve Outcome: Ongoing Goal: Ability to identify appropriate dietary choices will improve Outcome: Ongoing Problem: Nutritional: Goal: Dietary intake will improve Outcome: Ongoing Goal: Ability to maintain a balanced intake and output will improve Outcome: Ongoing Goals: Clinical Goals for the Shift: VS, safety OFF WORKER * Plan of Care - Mary Hoyos RN - 12/05/2023 11:51 PM BOIL OFF WORKER Goals: Clinical Goals for the Shift: Monitor labs; sleep hygiene; monitor vitals; pain control; q2 turns Problem: Health Behavior: Goal: Understanding of discharge needs will improve Outcome: Progressing Problem: Activity: Goal: Mobility will improve Outcome: Progressing Problem: Lack of Knowledge: Goal: Understanding of ways to prevent future skin breakdown will improve Outcome: Progressing Goal: Ability to identify appropriate dietary choices will improve Outcome: Progressing Problem: Nutritional: Goal: Dietary intake will improve Outcome: Progressing Goal: Ability to maintain a balanced intake and output will improve Outcome: Progressing Problem: Skin Integrity: Goal: Risk for impaired skin integrity will decrease Outcome: Progressing Goal: Ability to demonstrate warm and dry skin will improve Outcome: Progressing Goal: Circulation will improve to fullest extent possible Outcome: Progressing Problem: Lack of Knowledge: Goal: Ability to develop a pain control plan will improve Outcome: Progressing Goal: Ability to identify pain intensity on a pain scale and rate it consistently will improve Outcome: Progressing Goal: Ability to notify healthcare provider of pain before it becomes unmanageable or unbearable will improve Outcome: Progressing Problem: Medication: Goal: Satisfaction with pain management regimen will improve Outcome: Progressing Problem: Sensory: Goal: Ability to identify factors that increase the pain will improve Outcome: Progressing Goal: Pain level will decrease Outcome: Progressing Problem: Lack of Knowledge: Goal: Ability to state ways to decrease the risk of falls will improve Outcome: Progressing Problem: Safety: Goal: Will remain free from falls Outcome: Progressing Goal: Will remain free from injury from falls Outcome: Progressing Goal: Will remain free from falls and injury in home environment Outcome: Progressing Problem: Lack of Knowledge: Goal: Ability to describe self-care measures that may prevent or decrease complications will improve Outcome: Progressing Goal: Knowledge of disease or condition will improve Outcome: Progressing Goal: Knowledge of the prescribed therapeutic regimen will improve Outcome: Progressing Goal: Knowledge of prevention and discharge planning will improve Outcome: Progressing Problem: Coping: Goal: Ability to adjust to condition or change in health will improve Outcome: Progressing Problem: Fluid Volume: Goal: Ability to maintain a balanced intake and output will improve Outcome: Progressing Problem: Health Behavior: Goal: Ability to identify and alter actions that are detrimental to health will improve Outcome: Progressing Goal: Ability to identify and utilize available resources and services will improve Outcome: Progressing Goal: Ability to manage health-related needs will improve Outcome: Progressing Problem: Nutritional: Goal: Maintenance of adequate nutrition will improve Outcome: Progressing Goal: Progress toward achieving an optimal weight will improve Outcome: Progressing Problem: Physical Regulation: Goal: Complications related to the disease process, condition or treatment will be avoided or minimized Outcome: Progressing Goal: Diagnostic test results will improve Outcome: Progressing Problem: Skin Integrity: Goal: Risk for impaired skin integrity will decrease Outcome: Progressing OFF WORKER * Plan of Care - Madison Ma RN - 12/05/2023 2:52 PM CST Per Medical Chart/Rounds/IDR: 73 year old male patient admitted for DVT. Per IDR rounds with Graphics Intern, Dressmaking Teacher, Charge Nurse, and MD, the patient is not medicallystable for discharge at this time. Patient has harris in place and will have void trial, diuretics being adjusted, vascular surgery recommendations pending, and anticoagulation being adjusted. 11:24 AM: CM talked with patient's spouse about discharge plan. CM confirmed with spouse that PM&R recommended IRF and that discharge plan is to move forward with [facility]. ADD: 12/07 Plan & referrals made/in place: [facility]: [phone] 12:20 PM: CM provided liaison with update regarding discharge. Liaison to start authorization on 12/06 for possible Sunday discharge. Support following discharge: facility/family Transportation: EMS F/U Appointments: patient to discharge to IRF Patient's Identified Problem/Goal Problem: Ensure acute medical needs are met and that patient has a safe discharge plan. Goal: Secure a discharge plan that patient/family are agreeable with and ensure patient has continuum of care. Patient and/or family are agreeable with plan. inside sales account manager will continue to follow and assist with discharge planning as needed. If any further discharge needs arise, please contact the covering rn case manager. ARNULFO Romeo, seismic interpreter OFF WORKER * Plan of Care - Wendy Gallardo RN - 12/05/2023 8:10 AM CST Pt c/o mild pain to back. Pt denies need for additional pain medication other than scheduled Tylenol. No other complaints at this time. VSS. Heparin gtt infusing. aPTT therapeutic this AM. Next aPTT lab draw is tomorrow 12/06 @ 0500. OFF WORKER * Plan of Care - Mary Meléndez RN - 12/04/2023 7:50 AM CST Problem: Activity: Goal: Mobility will improve Outcome: Ongoing Problem: Lack of Knowledge: Goal: Understanding of ways to prevent future skin breakdown will improve Outcome: Ongoing Problem: Skin Integrity: Goal: Ability to demonstrate warm and dry skin will improve Outcome: Ongoing Problem: Medication: Goal: Satisfaction with pain management regimen will improve Outcome: Progressing Problem: Safety: Goal: Will remain free from falls Outcome: Progressing Goal: Will remain free from injury from falls Outcome: Progressing Problem: Lack of Knowledge: Goal: Knowledge of prevention and discharge planning will improve Outcome: Ongoing OFF WORKER * Plan of Care - Sheree Briones RN - 12/03/2023 10:46 PM CST Problem: Health Behavior: Goal: Understanding of discharge needs will improve Outcome: Progressing Problem: Activity: Goal: Mobility will improve Outcome: Progressing Problem: Lack of Knowledge: Goal: Understanding of ways to prevent future skin breakdown will improve Outcome: Progressing Goal: Ability to identify appropriate dietary choices will improve Outcome: Progressing Problem: Nutritional: Goal: Dietary intake will improve Outcome: Progressing Goal: Ability to maintain a balanced intake and output will improve Outcome: Progressing Problem: Skin Integrity: Goal: Risk for impaired skin integrity will decrease Outcome: Progressing Goal: Ability to demonstrate warm and dry skin will improve Outcome: Progressing Goal: Circulation will improve to fullest extent possible Outcome: Progressing Problem: Lack of Knowledge: Goal: Ability to develop a pain control plan will improve Outcome: Progressing Goal: Ability to identify pain intensity on a pain scale and rate it consistently will improve Outcome: Progressing Goal: Ability to notify healthcare provider of pain before it becomes unmanageable or unbearable will improve Outcome: Progressing Problem: Medication: Goal: Satisfaction with pain management regimen will improve Outcome: Progressing Problem: Sensory: Goal: Ability to identify factors that increase the pain will improve Outcome: Progressing Goal: Pain level will decrease Outcome: Progressing Problem: Lack of Knowledge: Goal: Ability to state ways to decrease the risk of falls will improve Outcome: Progressing Problem: Safety: Goal: Will remain free from falls Outcome: Progressing Goal: Will remain free from injury from falls Outcome: Progressing Goal: Will remain free from falls and injury in home environment Outcome: Progressing Problem: Lack of Knowledge: Goal: Ability to describe self-care measures that may prevent or decrease complications will improve Outcome: Progressing Goal: Knowledge of disease or condition will improve Outcome: Progressing Goal: Knowledge of the prescribed therapeutic regimen will improve Outcome: Progressing Goal: Knowledge of prevention and discharge planning will improve Outcome: Progressing Problem: Coping: Goal: Ability to adjust to condition or change in health will improve Outcome: Progressing Problem: Fluid Volume: Goal: Ability to maintain a balanced intake and output will improve Outcome: Progressing Problem: Health Behavior: Goal: Ability to identify and alter actions that are detrimental to health will improve Outcome: Progressing Goal: Ability to identify and utilize available resources and services will improve Outcome: Progressing Goal: Ability to manage health-related needs will improve Outcome: Progressing Problem: Nutritional: Goal: Maintenance of adequate nutrition will improve Outcome: Progressing Goal: Progress toward achieving an optimal weight will improve Outcome: Progressing Problem: Physical Regulation: Goal: Complications related to the disease process, condition or treatment will be avoided or minimized Outcome: Progressing Goal: Diagnostic test results will improve Outcome: Progressing Problem: Skin Integrity: Goal: Risk for impaired skin integrity will decrease Outcome: Progressing OFF WORKER * Plan of Care - Madison Ma RN - 12/03/2023 1:36 PM CST Per Medical Chart/Rounds/IDR: 73 year old male patient admitted for DVT. Per IDR rounds with Graphics Intern, Dressmaking Teacher, Charge Nurse, and MD, the patient is not medicallystable for discharge at this time. Patient currently on heparin drip. Patient will need to be seen by PT/OT for updated recommendations for return to [facility]. [facility] has requested a PM&R consult. CM made MD aware. ADD: 12/05 Plan & referrals made/in place: [facility]: [phone] 12/03: requested PM&R consult; made aware by CM. Need PT/OT notes. 3:35 PM: CM met with patient, spouse, and family friend regarding [facility] and their questions regarding the PM&R consult, working with PT/OT, and other IRF facilities. Patient/family still in agreement with going back to [facility] pending acceptance. CM to continue to work with patient/family with safe discharge plan. Support following discharge: facility/family Transportation: EMS F/U Appointments: patient to discharge to IRF Patient's Identified Problem/Goal Problem: Ensure acute medical needs are met and that patient has a safe discharge plan. Goal: Secure a discharge plan that patient/family are agreeable with and ensure patient has continuum of care. Patient and/or family are agreeable with plan. inside sales account manager will continue to follow and assist with discharge planning as needed. If any further discharge needs arise, please contact the covering rn case manager. ARNULFO Romeo, seismic interpreter OFF WORKER OFF WORKER * Plan of Care - Mary Meléndez RN - 12/03/2023 8:40 AM CST Problem: Skin Integrity: Goal: Risk for impaired skin integrity will decrease Outcome: Ongoing Goal: Ability to demonstrate warm and dry skin will improve Outcome: Progressing Goal: Circulation will improve to fullest extent possible Outcome: Ongoing Problem: Medication: Goal: Satisfaction with pain management regimen will improve Outcome: Progressing Goals: monitor vital signs, monitor blood sugar, turn patient, and monitor pain level. OFF WORKER OFF WORKER * Plan of Care - Marcial Barnes RN - 12/02/2023 10:41 PM CST Goals: Problem: Health Behavior: Goal: Understanding of discharge needs will improve Outcome: Progressing Problem: Activity: Goal: Mobility will improve Outcome: Progressing Problem: Lack of Knowledge: Goal: Understanding of ways to prevent future skin breakdown will improve Outcome: Progressing Goal: Ability to identify appropriate dietary choices will improve Outcome: Progressing Problem: Nutritional: Goal: Dietary intake will improve Outcome: Progressing Goal: Ability to maintain a balanced intake and output will improve Outcome: Progressing Problem: Skin Integrity: Goal: Risk for impaired skin integrity will decrease Outcome: Progressing Goal: Ability to demonstrate warm and dry skin will improve Outcome: Progressing Goal: Circulation will improve to fullest extent possible Outcome: Progressing Problem: Lack of Knowledge: Goal: Ability to develop a pain control plan will improve Outcome: Progressing Goal: Ability to identify pain intensity on a pain scale and rate it consistently will improve Outcome: Progressing Goal: Ability to notify healthcare provider of pain before it becomes unmanageable or unbearable will improve Outcome: Progressing Problem: Medication: Goal: Satisfaction with pain management regimen will improve Outcome: Progressing Problem: Sensory: Goal: Ability to identify factors that increase the pain will improve Outcome: Progressing Goal: Pain level will decrease Outcome: Progressing Problem: Lack of Knowledge: Goal: Ability to state ways to decrease the risk of falls will improve Outcome: Progressing Problem: Safety: Goal: Will remain free from falls Outcome: Progressing Goal: Will remain free from injury from falls Outcome: Progressing Goal: Will remain free from falls and injury in home environment Outcome: Progressing Problem: Lack of Knowledge: Goal: Ability to describe self-care measures that may prevent or decrease complications will improve Outcome: Progressing Goal: Knowledge of disease or condition will improve Outcome: Progressing Goal: Knowledge of the prescribed therapeutic regimen will improve Outcome: Progressing Goal: Knowledge of prevention and discharge planning will improve Outcome: Progressing Problem: Coping: Goal: Ability to adjust to condition or change in health will improve Outcome: Progressing Problem: Fluid Volume: Goal: Ability to maintain a balanced intake and output will improve Outcome: Progressing Problem: Health Behavior: Goal: Ability to identify and alter actions that are detrimental to health will improve Outcome: Progressing Goal: Ability to identify and utilize available resources and services will improve Outcome: Progressing Goal: Ability to manage health-related needs will improve Outcome: Progressing Problem: Nutritional: Goal: Maintenance of adequate nutrition will improve Outcome: Progressing Goal: Progress toward achieving an optimal weight will improve Outcome: Progressing Problem: Physical Regulation: Goal: Complications related to the disease process, condition or treatment will be avoided or minimized Outcome: Progressing Goal: Diagnostic test results will improve Outcome: Progressing Problem: Skin Integrity: Goal: Risk for impaired skin integrity will decrease Outcome: Progressing OFF WORKER * Hospital Course - Jimenez Henao MD - 12/02/2023 4:50 PM BOIL OFF WORKER DVT (deep venous thrombosis), hx of PE Patient with complex history with cardiac arrest [...] here for vascular surgery and hematology evaluation. Patientarrived here HD stable with warm extremities and brisk distal pulses. BLE venous duplex US showed extensive bilateral DVTs from the groin on down. Vascular Surgery, Hematology, and Orthopedic Surgerywere consulted. After discussion w/ consulting services, patient, and his family, he was started onheparin infusion w/o bolus. Continued neurovascular checks. On 12/02, he was transfused 1 unit PRBCsfor slowly declining Hgb with appropriate rise. Since that time, hgb had remained stable on therapeutic heparin gtt for >48 hr. Discussed with hematology that patient should return to lovenox 80 mg BID for anticoagulation due to bleed risk and ability to more safely reverse anticoagulation without period of hypercoagulability. Patient monitored with anti-factor Xa level 0.68 which was appropriate. Hgb was stable between 8-9 during remainder of admission. Anticoagulation plan at discharge: enoxaparin 80 mg BID Paraspinal hematoma; paralysis of bilateral lower limbs Occurred on therapeutic anticoagulation in setting of recent lumbar decompression, with subsequent LE paralysis and emergent hematoma evacuation on 11/07. Orthopedics was consulted this admission and agreed with anticoagulation with high-risk heparin gtt without bolus and close monitoring of hemoglobin. His previous sutures were removed on 11/30. Drainage was noted from some of his sutures, so he was put on a 10 day course of TMP-SMX to treat SSTI around the proximal drain site as well as his previous E cloacae UTI. Anticoagulation was managed as described above. Noted to have dropping Hgb in the absence of any new neuro symptoms including worsening weakness/paresthesias or constipation, evalua felipe as above. After stable hgb on therapeutic heparin drip, discussion with orthopedic surgery and they were in agreement with enoxaparin BID for therapeutic AC as above. PT and OT evaluated him and recommended inpatient rehab. [facility] requested PM&R consult prior to discharge. PM&R recommended that patient is discharged to a SCI unit and agreed with [facility] to take. Strongly recommended attempts to manage worsening BLE/Scrotal edema. Patient started on IV diuretic therapy with brisk UOP and slow improvement of BLE edema. He was ultimately discharged to [facility]. Anemia Initial Hgb was stable in the 8-9 range. After heparin infusion was started, labs showed slowly declining hgb without obvious source. 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 He was transfused 1 unit PRBCs on 12/02. Since that time, hgb had remained stable on therapeutic heparin gtt for >48 hr and was transitioned to lovenox BID without anemia as above. UTI (urinary tract infection) Patient had diagnosed with UTI in setting of harris catheter on 11/21 with growth of Enterobacter cloacae (S - TMPSMX, nitrofurantoin, cefepime). He denied urinary symptoms, though was noted to have leukocytosis that has improved. Urology was consulted and recommended outpatient follow-up; they did not feel urgent stent exchange was indicated given normal renal function, absence of flank pain, and other acute medical issues. Once again discussed with urology after treatment course of antibiotics completed, and once again recommended to continue existing harris catheter until 12/25 ureteroscopy procedure instead of exchange prior to discharge. Hydronephrosis with urinary obstruction due to renal calculus Patient with noted progressed hydronephrosis during CT this month in setting of ureteral stones. Nourinary retention or abd/back pain noted. Urology was consulted and recommended continued conservative management with repeat urine cx to confirm resolution of previous UTI and outpatient followup asscheduled. Repeat UA was contaminated with squames but culture had clinically insignificant growth.His nitrofurantoin was switched to TMP-SMX to also cover SSTI of his back which was continued for 10 days. Scrotal swelling Lower extremity edema In setting of DVT. There was no evidence of infection on exam. Vascular surgery evaluation without plan for thrombectomy due to extensive clot burden and extension into abdomen. Used scrotal sling for support and maintained Harris catheter given anasarca and intake/output monitoring. Discussion withvascular surgery again later in hospital stay and re-iterated that thrombectomy would not be indicated in the absence of limb-threatening complications. Further discussion also with vascular surgery regarding BLE compression stockings and/or lymphedema wrapping and vascular surgery stated that thiswas appropriate. In addition, patient was started on diuretic therapy given stable vital signs with lasix 40 mg IV BID which patient tolerated well with stable Cr and K, Mg not requiring repletion. At discharge, patient was de-escalated to lasix 40 mg PO BID for diuresis as he was tolerating well. Seizure Continued levetiracetam while inpatient; he should continue this through his follow-up appointment with Neurosurgery. He did not demonstrate any seizure-like activity this admission. HTN (hypertension) Cont diltiazem; continued to hold home ARB which had been held at [facility]. Given initiation of diuretic therapy, this continued to be held at discharge. Elevated transaminase level AST 65, ALT 80, new on admission. Unclear etiology. Resolved w/o intervention. OFF WORKER OFF WORKER OFF WORKER OFF WORKER OFF WORKER OFF WORKER OFF WORKER OFF WORKER OFF WORKER OFF WORKER OFF WORKER OFF WORKER OFF WORKER OFF WORKER OFF WORKER OFF WORKER OFF WORKER OFF WORKER OFF WORKER OFF WORKER OFF WORKER * Plan of Care - Mary Meléndez RN - 12/02/2023 9:10 AM CST Problem: Lack of Knowledge: Goal: Ability to develop a pain control plan will improve Outcome: Ongoing Goal: Ability to identify pain intensity on a pain scale and rate it consistently will improve Outcome: Ongoing Goal: Ability to notify healthcare provider of pain before it becomes unmanageable or unbearable will improve Outcome: Ongoing Problem: Medication: Goal: Satisfaction with pain management regimen will improve Outcome: Ongoing Problem: Sensory: Goal: Ability to identify factors that increase the pain will improve Outcome: Ongoing Goal: Pain level will decrease Outcome: Ongoing Problem: Safety: Goal: Will remain free from falls Outcome: Ongoing Goals: OFF WORKER * Plan of Care - Marcial Barnes RN - 12/01/2023 10:51 PM CST Goals: Problem: Health Behavior: Goal: Understanding of discharge needs will improve Outcome: Progressing Problem: Activity: Goal: Mobility will improve Outcome: Progressing Problem: Lack of Knowledge: Goal: Understanding of ways to prevent future skin breakdown will improve Outcome: Progressing Goal: Ability to identify appropriate dietary choices will improve Outcome: Progressing Problem: Nutritional: Goal: Dietary intake will improve Outcome: Progressing Goal: Ability to maintain a balanced intake and output will improve Outcome: Progressing Problem: Skin Integrity: Goal: Risk for impaired skin integrity will decrease Outcome: Progressing Goal: Ability to demonstrate warm and dry skin will improve Outcome: Progressing Goal: Circulation will improve to fullest extent possible Outcome: Progressing Problem: Lack of Knowledge: Goal: Ability to develop a pain control plan will improve Outcome: Progressing Goal: Ability to identify pain intensity on a pain scale and rate it consistently will improve Outcome: Progressing Goal: Ability to notify healthcare provider of pain before it becomes unmanageable or unbearable will improve Outcome: Progressing Problem: Medication: Goal: Satisfaction with pain management regimen will improve Outcome: Progressing Problem: Sensory: Goal: Ability to identify factors that increase the pain will improve Outcome: Progressing Goal: Pain level will decrease Outcome: Progressing Problem: Lack of Knowledge: Goal: Ability to state ways to decrease the risk of falls will improve Outcome: Progressing Problem: Safety: Goal: Will remain free from falls Outcome: Progressing Goal: Will remain free from injury from falls Outcome: Progressing Goal: Will remain free from falls and injury in home environment Outcome: Progressing Problem: Lack of Knowledge: Goal: Ability to describe self-care measures that may prevent or decrease complications will improve Outcome: Progressing Goal: Knowledge of disease or condition will improve Outcome: Progressing Goal: Knowledge of the prescribed therapeutic regimen will improve Outcome: Progressing Goal: Knowledge of prevention and discharge planning will improve Outcome: Progressing Problem: Coping: Goal: Ability to adjust to condition or change in health will improve Outcome: Progressing Problem: Fluid Volume: Goal: Ability to maintain a balanced intake and output will improve Outcome: Progressing Problem: Health Behavior: Goal: Ability to identify and alter actions that are detrimental to health will improve Outcome: Progressing Goal: Ability to identify and utilize available resources and services will improve Outcome: Progressing Goal: Ability to manage health-related needs will improve Outcome: Progressing Problem: Nutritional: Goal: Maintenance of adequate nutrition will improve Outcome: Progressing Goal: Progress toward achieving an optimal weight will improve Outcome: Progressing Problem: Physical Regulation: Goal: Complications related to the disease process, condition or treatment will be avoided or minimized Outcome: Progressing Goal: Diagnostic test results will improve Outcome: Progressing Problem: Skin Integrity: Goal: Risk for impaired skin integrity will decrease Outcome: Progressing OFF WORKER * Initial Assessments - Madison Ma RN - 12/01/2023 3:07 PM CST CM Initial Assessment Interview Note Information Obtained From: Patient Name: and Spouse present at Bedside: Val Evans [phone] (11/30/23 1016) Admission Source: Transfer from another facility ([facility]) Impression: 73 year old male patient admitted for DVT. Plan Includes: Anticipate patient will discharge to back to [facility] for rehab when medicallystable. CM placed referral via [facility] to [facility]. CM to follow for d/c planning and referrals as needed. Primary Source of Transportation: Does the patient need discharge transport arranged?: Yes Has discharge transport been arranged?: No (12/01/23 1502) Health Insurance Coverage: [facility] Medicare Prescription Coverage: yes Pharmacy: verified [facility] [address] [place] [id number] [place] [address] [facility] [id number] [address] [facility] [id number] Primary Care Provider: Rl Barnett DO Prior to Admission: Functional Status: Moderate assist with ADLs Primary Caregiver: Facility staff Support System: Spouse/Significant Other Home Care Services: No Durable Medical Equipment: Walker (wheeled), Quad cane Living Arrangements: Spouse/significant other Type of Residence: Private residence Steps in home?: Yes, Outside of home Number of steps outside: 2 steps Medication management: Independent (12/01/23 1501) Potential discharge needs include: IRF at discharge (patient from [facility]) Dialysis: NO Behavioral Health Services: Behavioral Health Services: No (12/01/23 1501) Patient expects to be Discharged to: Acute Rehab, (12/01/23 1501) Additional Information: CM met with patient at bedside to complete initial assessment. Address and phone number verified with face sheet. Patient lives in a private residence with spouse and was at [facility] getting rehab. Patient wishes to return to [facility] at discharge. Denies HHC or DME. Patient's Identified Problem/Goal Problem: Ensure acute medical [...] Collaboration with patient, MD, direct care nurse, Dressmaking Teacher, and other members of the health care team to assure needed interventions completed. 2. Return patient to optimal level of self-care post discharge. 3. Graphics Intern will follow for Discharge Planning - interventions as needed 4. Anticipated level of care at discharge 5. Planned Discharge Disposition Based on a comprehensive family assessment, assistance with instrumental activities of daily livingafter discharge will be provided by facility. Through the course of our work I determined that the facility possesses the skill and ability to provide and monitor the care of the patient when he or she returns home. Facility has the capacity to provide/monitor/arrange for the care of the patient. Finally, we determined that facility has the knowledge of available resources and that combining them with their existing resources will suffice tosustain and care for the patient when he or she returns home. The treatment team is aware of this information. All are in agreement with the aftercare plan. Madison Ma RN Case Manager OFF WORKER * Plan of Care - Nola Stiles RN - 12/01/2023 10:05 AM CST Goals: heparin drip, promote safety and comfort, ptt Problem: Health Behavior: Goal: Understanding of discharge needs will improve Outcome: Progressing Problem: Activity: Goal: Mobility will improve Outcome: Progressing Problem: Lack of Knowledge: Goal: Understanding of ways to prevent future skin breakdown will improve Outcome: Progressing Goal: Ability to identify appropriate dietary choices will improve Outcome: Progressing Problem: Nutritional: Goal: Dietary intake will improve Outcome: Progressing Goal: Ability to maintain a balanced intake and output will improve Outcome: Progressing Problem: Skin Integrity: Goal: Risk for impaired skin integrity will decrease Outcome: Progressing Goal: Ability to demonstrate warm and dry skin will improve Outcome: Progressing Goal: Circulation will improve to fullest extent possible Outcome: Progressing Problem: Lack of Knowledge: Goal: Ability to develop a pain control plan will improve Outcome: Progressing Goal: Ability to identify pain intensity on a pain scale and rate it consistently will improve Outcome: Progressing Goal: Ability to notify healthcare provider of pain before it becomes unmanageable or unbearable will improve Outcome: Progressing Problem: Medication: Goal: Satisfaction with pain management regimen will improve Outcome: Progressing Problem: Sensory: Goal: Ability to identify factors that increase the pain will improve Outcome: Progressing Goal: Pain level will decrease Outcome: Progressing Problem: Lack of Knowledge: Goal: Ability to state ways to decrease the risk of falls will improve Outcome: Progressing Problem: Safety: Goal: Will remain free from falls Outcome: Progressing Goal: Will remain free from injury from falls Outcome: Progressing Goal: Will remain free from falls and injury in home environment Outcome: Progressing Problem: Lack of Knowledge: Goal: Ability to describe self-care measures that may prevent or decrease complications will improve Outcome: Progressing Goal: Knowledge of disease or condition will improve Outcome: Progressing Goal: Knowledge of the prescribed therapeutic regimen will improve Outcome: Progressing Goal: Knowledge of prevention and discharge planning will improve Outcome: Progressing Problem: Coping: Goal: Ability to adjust to condition or change in health will improve Outcome: Progressing Problem: Fluid Volume: Goal: Ability to maintain a balanced intake and output will improve Outcome: Progressing Problem: Health Behavior: Goal: Ability to identify and alter actions that are detrimental to health will improve Outcome: Progressing Goal: Ability to identify and utilize available resources and services will improve Outcome: Progressing Goal: Ability to manage health-related needs will improve Outcome: Progressing Problem: Nutritional: Goal: Maintenance of adequate nutrition will improve Outcome: Progressing Goal: Progress toward achieving an optimal weight will improve Outcome: Progressing Problem: Physical Regulation: Goal: Complications related to the disease process, condition or treatment will be avoided or minimized Outcome: Progressing Goal: Diagnostic test results will improve Outcome: Progressing Problem: Skin Integrity: Goal: Risk for impaired skin integrity will decrease Outcome: Progressing Summary: OFF WORKER * Plan of [facility] - Lisa Patel RN - 11/30/2023 8:08 PM CST Goals: Problem: Health Behavior: Goal: Understanding of discharge needs will improve Outcome: Progressing Problem: Activity: Goal: Mobility will improve Outcome: Progressing Problem: Lack of Knowledge: Goal: Understanding of ways to prevent future skin breakdown will improve Outcome: Progressing Goal: Ability to identify appropriate dietary choices will improve Outcome: Progressing Problem: Nutritional: Goal: Dietary intake will improve Outcome: Progressing Goal: Ability to maintain a balanced intake and output will improve Outcome: Progressing Problem: Skin Integrity: Goal: Risk for impaired skin integrity will decrease Outcome: Progressing Goal: Ability to demonstrate warm and dry skin will improve Outcome: Progressing Goal: Circulation will improve to fullest extent possible Outcome: Progressing Problem: Lack of Knowledge: Goal: Ability to develop a pain control plan will improve Outcome: Progressing Goal: Ability to identify pain intensity on a pain scale and rate it consistently will improve Outcome: Progressing Goal: Ability to notify healthcare provider of pain before it becomes unmanageable or unbearable will improve Outcome: Progressing Problem: Medication: Goal: Satisfaction with pain management regimen will improve Outcome: Progressing Problem: Safety: Goal: Will remain free from falls Outcome: Progressing Goal: Will remain free from injury from falls Outcome: Progressing Goal: Will remain free from falls and injury in home environment Outcome: Progressing Problem: Lack of Knowledge: Goal: Ability to describe self-care measures that may prevent or decrease complications will improve Outcome: Progressing Goal: Knowledge of disease or condition will improve Outcome: Progressing Goal: Knowledge of the prescribed therapeutic regimen will improve Outcome: Progressing Goal: Knowledge of prevention and discharge planning will improve Outcome: Progressing OFF WORKER * Initial Assessments - Vita Demarco LCSW - 11/30/2023 11:50 AM BOIL OFF WORKER Social Work Assessment Clinical Dx:admitted to the hospital 11/29/23 for management of extensive bilateral DVTs. Past Medical History: Date of last inpatient admission: Previous admit date: 11/07/2023 Number of inpatient admissions in past year: 3 Patient Information: Information Obtained From: Patient Name: and Spouse present at Bedside: Val Finneganjacinda [phone] Marital Status: Does Pt have Legal Guardian, Surrogate Decision Maker or Healthcare Agent? 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 Payor Source: Medicare Race: White/ Ethnicity: Non- Sexual Orientation : BIBI Gender Identity: Male Service : None (11/30/23 1016) Current Situation: Current Situation Living Arrangements: Spouse/significant other Type of Residence: Private residence Income: Employed, Senior Care/Pension Financial assistance: Unknown Education Level : Advanced College Degree How do you Pay for Medication: Insurance Coverage Current Transportation: Own vehicle What do you do with your Free Time: Enjoys traveling (11/30/23 1016) Legal History: Legal History Legal Information : No legal issues (11/30/23 1016) Support Systems and Spirituality: Support Systems and Spirituality Support System: Spouse, Children Spouse Name/Contact Information: Spouse: Val Evans [phone] Children Name/Contact Information: Son: Marcial Evans [phone] Participation from Patient's Support System: high Do you have a Anabaptism Preference or Affiliation?: Yes Preference/Affiliation : Atheist Are there any Anabaptism Practices that are important to maintain while admitted?: No Do you have Cultural Factors that are important to you?: No Description of Childhood: BIBI History of physical abuse? : No History of physically abusing others? : No History of sexual abuse?: No History of sexually abusing others? : No History of Mental/Emotional Abuse? : No (11/30/23 1016) Strengths, Assets, Liabilities and Stressors: Strengths, Assets, Liabilities, and Stressors Strengths (Must Choose Two): Vocational interests, i.e., hobbies, Interpersonal relationships and supports,i.e., family, friends, peers, Access to housing/residential stability, Steady employment, Financial stability Patient Assets: Access to services, Education, Employed, Home, Income, Insured, Transportation, Useof Supports, Supportive family Hope and Strength during Difficult Times: Family Does Pt have access to Employee Assistance Program: No Patient Barriers : Poor physical health Current Stressors: Chronic illness (11/30/23 1016) SDOH Transportation Needs: No Transportation Needs (11/30/2023) PRAPARE - Transportation Lack of Transportation (Medical): No Lack of Transportation (Non-Medical): No Financial Resource Strain: Low Risk (11/30/2023) Overall Financial Resource Strain (CARDIA) Difficulty of Paying Living Expenses: Not hard at all Housing Stability: Low Risk (11/30/2023) Housing Stability Vital Sign Unable to Pay for Housing in the Last Year: No Number of Places Lived in the Last Year: 1 Unstable Housing in the Last Year: No Social Connections: Moderately Isolated (11/30/2023) Social Connection and Isolation Panel [NHANES] Frequency of Communication with Friends and Family: More than three times a week Frequency of Social Gatherings with Friends and Family: More than three times a week Attends Anabaptism Services: Never Active Member of Clubs or Organizations: No Attends Club or Organization Meetings: Never Marital Status: Food Insecurity: No Food Insecurity (11/30/2023) Hunger Vital Sign Worried About Running Out of Food in the Last Year: Never true Ran Out of Food in the Last Year: Never true Tobacco Use: Medium Risk (10/11/2023) Patient History Smoking Tobacco Use: Former Smokeless Tobacco Use: Never Passive Exposure: Past Alcohol Use: Not At Risk (10/23/2023) AUDIT-C Frequency of Alcohol Consumption: 4 or more times a week Average Number of Drinks: 1 or 2 Frequency of Binge Drinking: Never PHQ Screening Over the past 2 weeks, how often have you been bothered by any of the following problems? Little Interest or Pleasure in Doing Things: Not at all Feeling Down, Depressed, or Hopeless: Not at all PHQ-2 Total Score (If total score is 3 or more points, staff should administer the PHQ-9): 0 E-Cigarette/Vaping Questions Responses E-cigarette/Vaping Use Never User Substance Abuse, Mental Health, and Trauma History: Chemical Dependency, Mental Health & Trauma History Chemical Dependency: None/no concerns reported Mental Health: No concerns outside of increased stress in the setting of acute illness (11/30/23 1016) Risk to Self and Others: Risk to Self and Others Previous Plans to Harm Another: N/A (11/30/23 1016) Impressions and Recommendations: Predictive Model Details 31% (High Risk) Factor Value Calculated 11/30/2023 12:03 21% Number of active inpatient medication orders 42 Risk of Unplanned Readmission Model 12% Number of ED visits in last six months 3 8% Diagnosis of cancer present 7% Number of hospitalizations in last year 2 7% ECG/EKG order present in last 6 months 6% Encounter of ten days or longer in last year present 6% Diagnosis of electrolyte disorder present 5% Restraint order present in last 6 months 5% Imaging order present in last 6 months 4% Latest hemoglobin low (7.3 g/dL) 4% Phosphorous result present 4% Age 73 3% Diagnosis of deficiency anemia present 3% Active anticoagulant inpatient medication order present 2% Charlson Comorbidity Index 2 1% Future appointment scheduled 1% Active ulcer inpatient medication order present 1% Current length of stay 0.811 days The patient, Hira Evans ( 1950), admitted to [facility] on 11/29/2023 for DVT (deep venous thrombosis) ([facility] (HCC) [I82.409]. Per H&P patient is is a 73yoM with PMH Lumbar Disc Herniation s/p decompression surgery /b cardiac arrest post-op and hematoma s/p evacuation (11/07/23) with resulting LE paralysis, DVT/PE s/p IVC filter (not on A/C currently), HTN, prediabetes presenting with DVT. SW consulted for high risk for readmission (31%) and readmission within 30 days of prior hospital admission SW meti with pt and spouse (Val Evans [phone]) at bedside to discuss financial, housing, transportation, social connections, food, and mental health needs. Throughout the assessment,patient had good eye contact and was forthcoming with information. Patient and spouse mentioned no new concerns besides ongoing stress with being away from home due to acute nature of patient's illness. They are staying with their daughter outside of the hospital & it has been difficult being away from home. Social Work discussed advanced care planning including surrogate decision makers, durable Power of Control Systems Technician, and Advanced Directives. Pt has DPOA documents completed and on file: His Spouse Val Evans ([phone]) is Power of Control Systems Technician. No additional SW needs identified at this time. SW remains available to pt and/or family should further needs arise. CM following for discharge planning. GEN Kauffman, WORK ORDER SORTING CLERK Inpatient Dressmaking Teacher [phone] [facility] OFF WORKER * Plan of Care - Nola Stiles RN - 11/30/2023 9:27 AM CST Problem: Health Behavior: Goal: Understanding of discharge needs will improve Outcome: Progressing Problem: Activity: Goal: Mobility will improve Outcome: Progressing Problem: Lack of Knowledge: Goal: Understanding of ways to prevent future skin breakdown will improve Outcome: Progressing Goal: Ability to identify appropriate dietary choices will improve Outcome: Progressing Problem: Nutritional: Goal: Dietary intake will improve Outcome: Progressing Goal: Ability to maintain a balanced intake and output will improve Outcome: Progressing Problem: Skin Integrity: Goal: Risk for impaired skin integrity will decrease Outcome: Progressing Goal: Ability to demonstrate warm and dry skin will improve Outcome: Progressing Goal: Circulation will improve to fullest extent possible Outcome: Progressing Problem: Lack of Knowledge: Goal: Ability to develop a pain control plan will improve Outcome: Progressing Goal: Ability to identify pain intensity on a pain scale and rate it consistently will improve Outcome: Progressing Goal: Ability to notify healthcare provider of pain before it becomes unmanageable or unbearable will improve Outcome: Progressing Problem: Medication: Goal: Satisfaction with pain management regimen will improve Outcome: Progressing Problem: Sensory: Goal: Ability to identify factors that increase the pain will improve Outcome: Progressing Goal: Pain level will decrease Outcome: Progressing Problem: Lack of Knowledge: Goal: Ability to state ways to decrease the risk of falls will improve Outcome: Progressing Problem: Safety: Goal: Will remain free from falls Outcome: Progressing Goal: Will remain free from injury from falls Outcome: Progressing Goal: Will remain free from falls and injury in home environment Outcome: Progressing Problem: Lack of Knowledge: Goal: Ability to describe self-care measures that may prevent or decrease complications will improve Outcome: Progressing Goal: Knowledge of disease or condition will improve Outcome: Progressing Goal: Knowledge of the prescribed therapeutic regimen will improve Outcome: Progressing Goal: Knowledge of prevention and discharge planning will improve Outcome: Progressing Problem: Coping: Goal: Ability to adjust to condition or change in health will improve Outcome: Progressing Problem: Fluid Volume: Goal: Ability to maintain a balanced intake and output will improve Outcome: Progressing Problem: Health Behavior: Goal: Ability to identify and alter actions that are detrimental to health will improve Outcome: Progressing Goal: Ability to identify and utilize available resources and services will improve Outcome: Progressing Goal: Ability to manage health-related needs will improve Outcome: Progressing Problem: Nutritional: Goal: Maintenance of adequate nutrition will improve Outcome: Progressing Goal: Progress toward achieving an optimal weight will improve Outcome: Progressing Problem: Physical Regulation: Goal: Complications related to the disease process, condition or treatment will be avoided or minimized Outcome: Progressing Goal: Diagnostic test results will improve Outcome: Progressing Problem: Skin Integrity: Goal: Risk for impaired skin integrity will decrease Outcome: Progressing Goals: V/s comfort and safety ,pain control Summary: OFF WORKER * Plan of Care - Lisa Patel RN - 11/29/2023 10:25 PM BOIL OFF WORKER Goals: Summary: Problem: Health Behavior: Goal: Understanding of discharge needs will improve Outcome: Progressing Problem: Activity: Goal: Mobility will improve Outcome: Progressing Problem: Lack of Knowledge: Goal: Understanding of ways to prevent future skin breakdown will improve Outcome: Progressing Goal: Ability to identify appropriate dietary choices will improve Outcome: Progressing Problem: Nutritional: Goal: Dietary intake will improve Outcome: Progressing Goal: Ability to maintain a balanced intake and output will improve Outcome: Progressing Problem: Skin Integrity: Goal: Risk for impaired skin integrity will decrease Outcome: Progressing Goal: Ability to demonstrate warm and dry skin will improve Outcome: Progressing Goal: Circulation will improve to fullest extent possible Outcome: Progressing Problem: Lack of Knowledge: Goal: Ability to develop a pain control plan will improve Outcome: Progressing Goal: Ability to identify pain intensity on a pain scale and rate it consistently will improve Outcome: Progressing Goal: Ability to notify healthcare provider of pain before it becomes unmanageable or unbearable will improve Outcome: Progressing Problem: Medication: Goal: Satisfaction with pain management regimen will improve Outcome: Progressing Problem: Sensory: Goal: Ability to identify factors that increase the pain will improve Outcome: Progressing Goal: Pain level will decrease Outcome: Progressing Problem: Lack of Knowledge: Goal: Ability to state ways to decrease the risk of falls will improve Outcome: Progressing Problem: Safety: Goal: Will remain free from falls Outcome: Progressing Goal: Will remain free from injury from falls Outcome: Progressing Goal: Will remain free from falls and injury in home environment Outcome: Progressing Problem: Lack of Knowledge: Goal: Ability to describe self-care measures that may prevent or decrease complications will improve Outcome: Progressing Goal: Knowledge of disease or condition will improve Outcome: Progressing Goal: Knowledge of the prescribed therapeutic regimen will improve Outcome: Progressing Goal: Knowledge of prevention and discharge planning will improve Outcome: Progressing Problem: Coping: Goal: Ability to adjust to condition or change in health will improve Outcome: Progressing Problem: Fluid Volume: Goal: Ability to maintain a balanced intake and output will improve Outcome: Progressing Problem: Health Behavior: Goal: Ability to identify and alter actions that are detrimental to health will improve Outcome: Progressing Goal: Ability to identify and utilize available resources and services will improve Outcome: Progressing Goal: Ability to manage health-related needs will improve Outcome: Progressing Problem: Nutritional: Goal: Maintenance of adequate nutrition will improve Outcome: Progressing Goal: Progress toward achieving an optimal weight will improve Outcome: Progressing Problem: Physical Regulation: Goal: Complications related to the disease process, condition or treatment will be avoided or minimized Outcome: Progressing Goal: Diagnostic test results will improve Outcome: Progressing OFF WORKER * Assessment & Plan Note - Errol Escobar MD - 11/29/2023 7:22 PM BOIL OFF WORKER Associated Problem(s): Prediabetes - Was on mounjaro as outpatient - has required intermittent SSI at [facility] - Diabetic diet, SSI ordered OFF WORKER * Assessment & Plan Note - Jimenez Henao MD - 11/29/2023 7:21 PM BOIL OFF WORKER Associated Problem(s): Scrotal swelling - In setting of presumed DVT - no evidence of infection on exam - Scrotal Sling - Maintain harris catheter - DVT mgt per above - for edema, will continue IV lasix 40 mg BID, monitor electrolytes - at discharge will discharge on PO lasix 40 mg BID OFF WORKER OFF WORKER OFF WORKER OFF WORKER * Assessment & Plan Note - Jimenez Henao MD - 11/29/2023 7:20 PM BOIL OFF WORKER Associated Problem(s): Elevated transaminase level - AST 65, ALT 80, new on arrival- Unclear etiology at this time - possibly from IVC compression/distention in setting of potential thrombi? - Improving - will hold off on further imaging OFF WORKER OFF WORKER * Assessment & Plan Note - Jimenez Henao MD - 11/29/2023 7:19 PM BOIL OFF WORKER Associated Problem(s): Hyponatremia Improved. Na low 130s over the past week, has improved with improved oral intake and remains in normal range with initiation of diuretic therapy. - CTM on lasix OFF WORKER OFF WORKER * Assessment & Plan Note - Nicolas Dobbs MD - 11/29/2023 7:19 PM CSTAssociated Problem(s): Paraspinal hematoma - Occurred on therapeutic anticoagulation in setting of recent lumbar decompression, with subsequent LE paralysis and emergent hematoma evacuation on 11/07 - Directly-admitted from [facility] - PT/OT - Orthopedics following - had sutures removed on 11/30 - note had some drainage from sutures, plan 7-10d course SSTI antibiotics using Bactrim for now - anticoagulation as elsewhere (see DVT ) OFF WORKER OFF WORKER OFF WORKER * Assessment & Plan Note - Errol Escobar MD - 11/29/2023 7:17 PM BOIL OFF WORKER Associated Problem(s): Anemia - Stable Hgb ~8 - Maintain Hgb > 7 OFF WORKER * Assessment & Plan Note - Jimenez Henao MD - 11/29/2023 7:17 PM BOIL OFF WORKER Associated Problem(s): Hydronephrosis with urinary obstruction due to renal calculus - Patient with noted progressed hydronephrosis during CT this month in setting of ureteral stones - No urinary retention or abd/back pain at this time - urology consulted: no intervention while inpatient. S/p treatment of UTI, harrsi can be continued for ~4wk from placement and would be OK with continuing through 12/25 ureteroscopy appt. With this onschedule, patient does not need to follow-up with Dr. Irene on 12/13 (appears to be holdover from prior). - repeat UA w/ reflex from 11/30 without evidence of clinically significant infection - has been on Macrobid, stopped in favor of Bactrim to also cover SSTI of back OFF WORKER OFF WORKER OFF WORKER OFF WORKER OFF WORKER OFF WORKER * Assessment & Plan Note - Errol Escobar MD - 11/29/2023 7:16 PM BOIL OFF WORKER Associated Problem(s): Pulmonary embolism (HCC) - Eval/mgt per above OFF WORKER * Assessment & Plan Note - Errol Escobar MD - 11/29/2023 7:16 PM BOIL OFF WORKER Associated Problem(s): Seizure (HCC) - Patient developed reported seizure on 10/23 during or prior to cardiac arrest with bilateral SDH noted on imaging - placed on keppra through follow-up with NSGY next month OFF WORKER * Assessment & Plan Note - Errol Escobar MD - 11/29/2023 7:15 PM BOIL OFF WORKER Associated Problem(s): Paraplegia (HCC) - Patient with paralysis of LE following recent spinal hematoma s/p emergent evacuation on 11/07 - Ongoing 11/09 strength of LE, sensation intact - Fall precautions OFF WORKER OFF WORKER * Assessment & Plan Note - Errol Escobar MD - 11/29/2023 7:14 PM BOIL OFF WORKER Associated Problem(s): Prostate cancer (HCC) - s/p prostatectomy OFF WORKER * Assessment & Plan Note - Nicolas Dobbs MD - 11/29/2023 7:14 PM CSTAssociated Problem(s): Lower extremity edema - Eval/mgt per above. NT-proBNP 105. OFF WORKER OFF WORKER * Assessment & Plan Note - Errol Escobar MD - 11/29/2023 7:14 PM BOIL OFF WORKER Associated Problem(s): HTN (hypertension) - Cont diltiazem - home ARB has been on hold at [facility] - continue to hold here initially OFF WORKER * Assessment & Plan Note - Jimenez Henao MD - 11/29/2023 7:14 PM BOIL OFF WORKER Associated Problem(s): UTI (urinary tract infection) - Patient diagnosed with UTI in setting of harris catheter on 11/21 with growth of Enterobacter cloacae (S - bactrim, macrobid, cefepime) - he denies symptoms, though was noted to have leukocytosis that has improved - s/p treatment course of bactrim - discussion with urology regarding harris catheter exchange, recommend continuing existing catheteruntil 12/25/23 appointment with urology. OFF WORKER OFF WORKER OFF WORKER * Assessment & Plan Note - Jimenez Henao MD - 11/29/2023 7:12 PM BOIL OFF WORKER Associated Problem(s): DVT (deep venous thrombosis) (CMS/HCC) (HCC) Patient with complex history with cardiac arrest [...] repletion, will continue lasix 40 IV BID OFF WORKER OFF WORKER OFF WORKER OFF WORKER OFF WORKER OFF WORKER OFF WORKER OFF WORKER OFF WORKER OFF WORKER OFF WORKER OFF WORKER * Plan of Care - Daisy Barnes RN - 11/29/2023 5:54 PM CST Goals: Problem: Health Behavior: Goal: Understanding of discharge needs will improve Outcome: Progressing Problem: Activity: Goal: Mobility will improve Outcome: Progressing Problem: Lack of Knowledge: Goal: Understanding of ways to prevent future skin breakdown will improve Outcome: Progressing Goal: Ability to identify appropriate dietary choices will improve Outcome: Progressing Problem: Nutritional: Goal: Dietary intake will improve Outcome: Progressing Goal: Ability to maintain a balanced intake and output will improve Outcome: Progressing Problem: Skin Integrity: Goal: Risk for impaired skin integrity will decrease Outcome: Progressing Goal: Ability to demonstrate warm and dry skin will improve Outcome: Progressing Goal: Circulation will improve to fullest extent possible Outcome: Progressing Problem: Lack of Knowledge: Goal: Ability to develop a pain control plan will improve Outcome: Progressing Goal: Ability to identify pain intensity on a pain scale and rate it consistently will improve Outcome: Progressing Goal: Ability to notify healthcare provider of pain before it becomes unmanageable or unbearable will improve Outcome: Progressing Problem: Medication: Goal: Satisfaction with pain management regimen will improve Outcome: Progressing Problem: Sensory: Goal: Ability to identify factors that increase the pain will improve Outcome: Progressing Goal: Pain level will decrease Outcome: Progressing Problem: Lack of Knowledge: Goal: Ability to state ways to decrease the risk of falls will improve Outcome: Progressing Problem: Safety: Goal: Will remain free from falls Outcome: Progressing Goal: Will remain free from injury from falls Outcome: Progressing Goal: Will remain free from falls and injury in home environment Outcome: Progressing OFF WORKER * ED Pre-Arrival Note - Luana Cabrera RN - 11/28/2023 10:54 AM BOIL OFF WORKER Pre-Arrival Note Patient being sent to ED from [facility] for BLE DVTs, has BLE edema. Hx IVC filter. Coming to be seen by vascular. Coming via ground transport. Luana Cabrera RN OFF WORKER documented in this encounter Plan of Treatment Scheduled Orders Name Type Priority Associated Diagnoses Orde r Schedule Basic metabolic panel Lab Routine Lower extremity edema every 3 days for 10 Occurrences starting 12/10/2023 until 12/10/2024 Magnesium Lab Routine Lower extremity edema every 3 days for 10 Occurrences starting 04/11/2024 until 12/10/2024, 1 completed documented as of this encounter Procedures Procedure Name Priority Date/Time Associated Diagnosis Comments EGFR Routine 12/09/2023 7:32 PM BOIL OFF WORKER DIFFERENTIAL AUTO Routine 12/09/2023 7:3 2 PM BOIL OFF WORKER CBC WITH AUTO DIFFERENTIAL Routine 12/09/2023 7:32 PM BOIL OFF WORKER PHOSPHORUS Routine 12/09/2023 7:32 PM BOIL OFF WORKER MAGNESIUM Routine 12/09/2023 7:32 PM BOIL OFF WORKER HEPATIC FUNCTION PANEL Routine 12/09/2023 7:32 PM BOIL OFF WORKER BASIC METABOLIC PANEL Routine 12/09/2023 7:32 PM BOIL OFF WORKER EGFR Routine 12/08/2023 9:04 PM BOIL OFF WORKER DIFFERENTIAL AUTO Routine 12/08/2023 9:0 4 PM BOIL OFF WORKER CBC WITH AUTO DIFFERENTIAL Routine 12/08/2023 9:04 PM BOIL OFF WORKER TYPE AND SCREEN Timed 12/08/2023 9:04 PM BOIL OFF WORKER PHOSPHORUS Routine 12/08/2023 9:04 PM BOIL OFF WORKER MAGNESIUM Routine 12/08/2023 9:04 PM BOIL OFF WORKER HEPATIC FUNCTION PANEL Routine 12/08/2023 9:04 PM BOIL OFF WORKER BASIC METABOLIC PANEL Routine 12/08/2023 9:04 PM BOIL OFF WORKER EGFR Routine 12/08/2023 4:08 AM BOIL OFF WORKER DIFFERENTIAL AUTO Routine 12/08/2023 4:0 8 AM BOIL OFF WORKER CBC WITH AUTO DIFFERENTIAL Routine 12/08/2023 4:08 AM BOIL OFF WORKER PHOSPHORUS Routine 12/08/2023 4:08 AM BOIL OFF WORKER MAGNESIUM Routine 12/08/2023 4:08 AM BOIL OFF WORKER HEPATIC FUNCTION PANEL Routine 12/08/2023 4:08 AM BOIL OFF WORKER BASIC METABOLIC PANEL Routine 12/08/2023 4:08 AM BOIL OFF WORKER EGFR Routine 12/07/2023 1:11 AM BOIL OFF WORKER DIFFERENTIAL AUTO Routine 12/07/2023 1:1 1 AM BOIL OFF WORKER HEPARIN ANTI FACTOR XA ACTIVITY Timed 12/07/2023 1:11 AM BOIL OFF WORKER CBC WITH AUTO DIFFERENTIAL Routine 12/07/2023 1:11 AM BOIL OFF WORKER PHOSPHORUS Routine 12/07/2023 1:11 AM BOIL OFF WORKER MAGNESIUM Routine 12/07/2023 1:11 AM BOIL OFF WORKER HEPATIC FUNCTION PANEL Routine 12/07/2023 1:11 AM BOIL OFF WORKER BASIC METABOLIC PANEL Routine 12/07/2023 1:11 AM BOIL OFF WORKER EGFR Routine 12/05/2023 10:10 PM BOIL OFF WORKER DIFFERENTIAL AUTO Routine 12/05/2023 10: 10 PM BOIL OFF WORKER CBC WITH AUTO DIFFERENTIAL Routine 12/05/2023 10:10 PM BOIL OFF WORKER TYPE AND SCREEN Timed 12/05/2023 10:10 PM BOIL OFF WORKER PHOSPHORUS Routine 12/05/2023 10:10 PM BOIL OFF WORKER MAGNESIUM Routine 12/05/2023 10:10 PM BOIL OFF WORKER HEPATIC FUNCTION PANEL Routine 12/05/2023 10:10 PM BOIL OFF WORKER BASIC METABOLIC PANEL Routine 12/05/2023 10:10 PM BOIL OFF WORKER POCT GLUCOSE DEVICE Routine 12/05/2023 1 2:12 PM BOIL OFF WORKER POCT GLUCOSE DEVICE Routine 12/05/2023 7 :59 AM BOIL OFF WORKER APTT Timed 12/05/2023 5:06 AM BOIL OFF WORKER EGFR Routine 12/04/2023 11:43 PM BOIL OFF WORKER DIFFERENTIAL AUTO Routine 12/04/2023 11: 43 PM BOIL OFF WORKER CBC WITH AUTO DIFFERENTIAL Routine 12/04/2023 11:43 PM BOIL OFF WORKER PHOSPHORUS Routine 12/04/2023 11:43 PM BOIL OFF WORKER MAGNESIUM Routine 12/04/2023 11:43 PM BOIL OFF WORKER HEPATIC FUNCTION PANEL Routine 12/04/2023 11:43 PM BOIL OFF WORKER BASIC METABOLIC PANEL Routine 12/04/2023 11:43 PM BOIL OFF WORKER POCT GLUCOSE DEVICE Routine 12/04/2023 8 :44 PM BOIL OFF WORKER POCT GLUCOSE DEVICE Routine 12/04/2023 4 :25 PM BOIL OFF WORKER POCT GLUCOSE DEVICE Routine 12/04/2023 1 1:36 AM BOIL OFF WORKER POCT GLUCOSE DEVICE Routine 12/04/2023 7 :24 AM BOIL OFF WORKER EGFR Routine 12/03/2023 10:04 PM BOIL OFF WORKER DIFFERENTIAL AUTO Routine 12/03/2023 10: 04 PM BOIL OFF WORKER CBC WITH AUTO DIFFERENTIAL Routine 12/03/2023 10:04 PM BOIL OFF WORKER APTT STAT 12/03/2023 10:04 PM BOIL OFF WORKER PHOSPHORUS Routine 12/03/2023 10:04 PM BOIL OFF WORKER MAGNESIUM Routine 12/03/2023 10:04 PM BOIL OFF WORKER HEPATIC FUNCTION PANEL Routine 12/03/2023 10:04 PM BOIL OFF WORKER BASIC METABOLIC PANEL Routine 12/03/2023 10:04 PM BOIL OFF WORKER POCT GLUCOSE DEVICE Routine 12/03/2023 8 :07 PM BOIL OFF WORKER POCT GLUCOSE DEVICE Routine 12/03/2023 4 :37 PM BOIL OFF WORKER APTT STAT 12/03/2023 1:42 PM BOIL OFF WORKER POCT GLUCOSE DEVICE Routine 12/03/2023 1 1:21 AM BOIL OFF WORKER POCT GLUCOSE DEVICE Routine 12/03/2023 7 :36 AM BOIL OFF WORKER APTT STAT 12/03/2023 5:38 AM BOIL OFF WORKER EGFR Routine 12/02/2023 10:07 PM BOIL OFF WORKER DIFFERENTIAL AUTO Routine 12/02/2023 10: 07 PM BOIL OFF WORKER EXTRA SLIDE PREPARATION Routine 12/02/2023 10:07 PM BOIL OFF WORKER CBC WITH AUTO DIFFERENTIAL Routine 12/02/2023 10:07 PM BOIL OFF WORKER APTT STAT 12/02/2023 10:07 PM BOIL OFF WORKER TYPE AND SCREEN Timed 12/02/2023 10:07 PM BOIL OFF WORKER DIRECT ANTIGLOBULIN TEST Timed 12/02/2023 10:07 PM BOIL OFF WORKER PHOSPHORUS Routine 12/02/2023 10:07 PM BOIL OFF WORKER MAGNESIUM Routine 12/02/2023 10:07 PM BOIL OFF WORKER LACTATE DEHYDROGENASE Routine 12/02/2023 10:07 PM BOIL OFF WORKER HAPTOGLOBIN Routine 12/02/2023 10:07 PM BOIL OFF WORKER HEPATIC FUNCTION PANEL Routine 12/02/2023 10:07 PM BOIL OFF WORKER BASIC METABOLIC PANEL Routine 12/02/2023 10:07 PM BOIL OFF WORKER POCT GLUCOSE DEVICE Routine 12/02/2023 9 :54 PM BOIL OFF WORKER POCT GLUCOSE DEVICE Routine 12/02/2023 4 :13 PM BOIL OFF WORKER TRANSFUSE RED BLOOD CELLS Timed 12/02/2023 2:45 PM BOIL OFF WORKER POCT GLUCOSE DEVICE Routine 12/02/2023 1 1:56 AM BOIL OFF WORKER PREPARE RBC Timed 12/02/2023 11:12 AM BOIL OFF WORKER POCT GLUCOSE DEVICE Routine 12/02/2023 7 :28 AM BOIL OFF WORKER APTT STAT 12/02/2023 7:01 AM BOIL OFF WORKER EGFR Routine 12/02/2023 1:15 AM BOIL OFF WORKER DIFFERENTIAL AUTO Routine 12/02/2023 1:1 5 AM BOIL OFF WORKER CBC WITH AUTO DIFFERENTIAL Routine 12/02/2023 1:15 AM BOIL OFF WORKER APTT STAT 12/02/2023 1:15 AM BOIL OFF WORKER PHOSPHORUS Routine 12/02/2023 1:15 AM BOIL OFF WORKER MAGNESIUM Routine 12/02/2023 1:15 AM BOIL OFF WORKER HEPATIC FUNCTION PANEL Routine 12/02/2023 1:15 AM BOIL OFF WORKER BASIC METABOLIC PANEL Routine 12/02/2023 1:15 AM BOIL OFF WORKER POCT GLUCOSE DEVICE Routine 12/01/2023 8 :42 PM BOIL OFF WORKER APTT Timed 12/01/2023 6:00 PM BOIL OFF WORKER POCT GLUCOSE DEVICE Routine 12/01/2023 5 :09 PM BOIL OFF WORKER CBC WITHOUT DIFFERENTIAL Routine 12/01/2023 12:35 PM BOIL OFF WORKER POCT GLUCOSE DEVICE Routine 12/01/2023 1 2:23 PM BOIL OFF WORKER POCT GLUCOSE DEVICE Routine 12/01/2023 1 2:21 PM BOIL OFF WORKER APTT STAT 12/01/2023 12:15 PM BOIL OFF WORKER EGFR Timed 12/01/2023 8:00 AM BOIL OFF WORKER COMPREHENSIVE METABOLIC PANEL Timed 12/01/2023 8:00 AM BOIL OFF WORKER POCT GLUCOSE DEVICE Routine 12/01/2023 7 :14 AM BOIL OFF WORKER APTT STAT 12/01/2023 4:40 AM BOIL OFF WORKER POCT GLUCOSE DEVICE Routine 11/30/2023 8 :46 PM BOIL OFF WORKER APTT STAT 11/30/2023 8:44 PM BOIL OFF WORKER POCT GLUCOSE DEVICE Routine 11/30/2023 4 :22 PM BOIL OFF WORKER URINALYSIS AND REFLEX TO MICROSCOPIC AND CULTURE Routine 11/30/2023 2:48 PM BOIL OFF WORKER URINALYSIS, MICROSCOPIC ONLY Routine 11/30/2023 2:48 PM BOIL OFF WORKER URINE CULTURE Routine 11/30/2023 2:48 PM BOIL OFF WORKER POCT GLUCOSE DEVICE Routine 11/30/2023 1 1:59 AM BOIL OFF WORKER APTT STAT 11/30/2023 11:16 AM BOIL OFF WORKER US VEIN DUPLEX LOWER EXTREMITY BILATERAL COMPLETE ED Urgent/IP Urgent 11/30/2023 8:03 AM BOIL OFF WORKER POCT GLUCOSE DEVICE Routine 11/30/2023 7 :51 AM BOIL OFF WORKER CT ABDOMEN PELVIS W CONTRAST IP Routine 11/30/2023 1:49 AM BOIL OFF WORKER EGFR Routine 11/30/2023 12:12 AM BOIL OFF WORKER DIFFERENTIAL AUTO Routine 11/30/2023 12: 12 AM BOIL OFF WORKER PRO B-TYPE NATRIURETIC PEPTIDE Routine 11/30/2023 12:12 AM BOIL OFF WORKER CALCIUM, IONIZED Routine 11/30/2023 12:1 2 AM BOIL OFF WORKER IRON PROFILE W/ IBC Routine 11/30/2023 1 2:12 AM BOIL OFF WORKER CBC WITH AUTO DIFFERENTIAL Routine 11/30/2023 12:12 AM BOIL OFF WORKER PROTIME-INR Routine 11/30/2023 12:12 AM BOIL OFF WORKER TYPE AND SCREEN Timed 11/30/2023 12:12 AM BOIL OFF WORKER PHOSPHORUS Routine 11/30/2023 12:12 AM BOIL OFF WORKER OSMOLALITY, BLOOD Routine 11/30/2023 12: 12 AM BOIL OFF WORKER MAGNESIUM Routine 11/30/2023 12:12 AM BOIL OFF WORKER FERRITIN Routine 11/30/2023 12:12 AM BOIL OFF WORKER HEPATIC FUNCTION PANEL Routine 11/30/2023 12:12 AM BOIL OFF WORKER BASIC METABOLIC PANEL Routine 11/30/2023 12:12 AM BOIL OFF WORKER URINALYSIS AND REFLEX TO MICROSCOPIC Routine 11/29/2023 10:42 PM BOIL OFF WORKER SODIUM, URINE, RANDOM Routine 11/29/2023 10:42 PM BOIL OFF WORKER OSMOLALITY, URINE Routine 11/29/2023 10: 42 PM BOIL OFF WORKER CREATININE, URINE, RANDOM Routine 11/29/2023 10:42 PM BOIL OFF WORKER URINALYSIS, MICROSCOPIC ONLY Routine 11/29/2023 10:42 PM BOIL OFF WORKER POCT GLUCOSE DEVICE Routine 11/29/2023 7 :56 PM BOIL OFF WORKER POCT GLUCOSE DEVICE Routine 11/29/2023 5:27 PM BOIL OFF WORKER documented in this encounter Results * Magnesium (04/11/2024 10:31 AM CDT) Pathologist [facility] Magnesium 2.2 1.4 - 2.5 mg/dL Comment:Testing performed by : [facility], [address] [place] [id number] Blood 04/11/2024 10:3 1 AM CDT 04/11/2024 10:33 AM CDT us Jimenez Henao MD LAB BLOOD ORDERABLES Final Result [facility] Department [place] [address] * eGFR (12/09/2023 7:32 PM BOIL OFF WORKER) eGFR >90 >=60 mL/min/1. 73 m2 [facility] Comment: Interpretive Data Reference Interval Normal ?>/= [...] interpretive data was last reviewed 2021. Blood 12/09/2023 7:32 PM BOIL OFF WORKER 12/09/2023 8:36 PM BOIL OFF WORKER us Nicolas Dobbs MD LAB BLOOD ORDERABLE S Final Result [facility] Department [place] [address] * Differential, auto (12/09/2023 7:32 PM BOIL OFF WORKER) Neutrophil abs 3.8 1.5 - 6.5 K/cumm [facility] Imm gran abs 0.1 0.0 - 0.1 K/cumm [facility] Lymphocyte abs 1.4 0.8 - 3.3 K/cumm [facility] Monocyte abs 0.4 0.2 - 0.8 K/cumm [facility] Eosinophil abs 0.2 0.0 - 0.5 K/cumm [facility] Basophil abs 0.0 0.0 - 0.1 K/cumm [facility] Neutrophil pct 65.3 % [facility] Comment: Interpretive Data Percent cell count reference ranges are not reported, since discordance with absolute values may lead to misinterpretation of CBC data. Current Interpretive Data was last revised on 2018. Imm gran pct 0.9 % [facility] Comment: Interpretive Data Percent cell count reference ranges are not reported, since discordance with absolute values may lead to misinterpretation of CBC data. Current Interpretive Data was last revised on 2018. Lymphocyte pct 23.6 % [facility] Comment: Interpretive Data Percent cell count reference ranges are not reported, since discordance with absolute values may lead to misinterpretation of CBC data. Current Interpretive Data was last revised on 2018. Monocyte pct 6.5 % [facility] Comment: Interpretive Data Percent cell count reference ranges are not reported, since discordance with absolute values may lead to misinterpretation of CBC data. Current Interpretive Data was last revised on 2018. Eosinophil pct 3.4 % [facility] Comment: Interpretive Data Percent cell count reference ranges are not reported, since discordance with absolute values may lead to misinterpretation of CBC data. Current Interpretive Data was last revised on 2018. Basophil pct 0.3 % [facility] Comment: Interpretive Data Percent cell count reference ranges are not reported, since discordance with absolute values may lead to misinterpretation of CBC data. Current Interpretive Data was last revised on 2018. Blood 12/09/2023 7:32 PM BOIL OFF WORKER 12/09/2023 8:36 PM BOIL OFF WORKER us Nicolas Dobbs MD LAB BLOOD ORDERABLE S Final Result [facility] Department [place] [address] * (ABNORMAL) CBC with auto differential (12/09/2023 7:32 PM BOIL OFF WORKER) Pathologist [facility] WBC 5.8 3.8 - 9.9 K/cumm [facility] Hgb 9.0(L) 13.0 - 17.5 g/dL [facility] Hct 28.6(L) 38.9 - 50.3 % [facility] Plt 320 150 - 400 K/cumm [facility] MPV 10.4 9.1 - 12.3 fL [facility] RBC 2.98(L) 4.30 - 5.80 M/cumm [facility] MCV 96.0 81.3 - 96.4 fL [facility] MCH 30.2 27.1 - 33.3 pg [facility] MCHC 31.5(L) 32.3 - 35.7 g/dL [facility] RDW CV 16.0(H) 11.1 - 14.9 % [facility] RDW SD 57.4(H) 35.7 - 48.1 fL [facility] NRBC abs 0.00 0.00 - 0.01 K/cumm [facility] Blood 12/09/2023 7:32 PM BOIL OFF WORKER 12/09/2023 8:36 PM BOIL OFF WORKER Nicolas Dobbs MD LAB BLOOD ORDERABLE S Final Result Performing Organization Address City/[facility] Co de Phone Number [facility] Department [place] [address] * Phosphorus (12/09/2023 7:32 PM BOIL OFF WORKER) Phosphorus, pl 3.5 2.3 - 4.5 mg/dL [facility] Blood 12/09/2023 7:32 PM BOIL OFF WORKER 12/09/2023 8:36 PM BOIL OFF WORKER Nicolas Dobbs MD LAB BLOOD ORDERABLE S Final Result Performing Organization Address City/[facility] Co de Phone Number [facility] [place] [address] * Magnesium (12/09/2023 7:32 PM BOIL OFF WORKER) Magnesium 1.7 1.4 - 2.5 mg/dL [facility] Blood 12/09/2023 7:32 PM BOIL OFF WORKER 12/09/2023 8:36 PM BOIL OFF WORKER Nicolas Dobbs MD LAB BLOOD ORDERABLE S Final Result Performing Organization Address [facility] Co de Phone Number [facility] Department [place] [address] * (ABNORMAL) Hepatic function panel (12/09/2023 7:32 PM BOIL OFF WORKER) [facility] Bilirubin, total 0.2 0.1 - 1.2 mg/dL [facility] Bilirubin, direct <0.2 0.1 - 0.3 mg/dL [facility] Protein, pl 6.3(L) 6.5 - 8.5 g/dL [facility] Albumin 3.0(L) 3.5 - 5.0 g/dL [facility] Alk phos 138(H) 40 - 130 Units/L [facility] ALT 34 7 - 55 Units/L [facility] AST 27 10 - 50 Units/L [facility] Blood 12/09/2023 7:32 PM BOIL OFF WORKER 12/09/2023 8:36 PM BOIL OFF WORKER Nicolas Dobbs MD LAB BLOOD ORDERABLE S Final Result [facility] Department [place] [address] * (ABNORMAL) Basic metabolic panel (12/09/2023 7:32 PM BOIL OFF WORKER) [facility] Sodium 137 135 - 145 mmol/L [facility] Potassium, pl 3.7 3.3 - 4.9 mmol/L [facility] Chloride 102 97 - 110 mmol/L [facility] CO2 26 22 - 32 mmol/L [facility] Anion gap 9 2 - 15 mmol/L [facility] BUN 22 6 - 25 mg/dL [facility] Creatinine 0.77(L) 0.80 - 1.30 mg/dL [facility] Glucose 147 70 - 199 mg/dL [facility] Comment: Interpretive Data Fasting glucose [...] 2022. Calcium 8.6 8.5 - 10.3 mg/dL [facility] Blood 12/09/2023 7:32 PM BOIL OFF WORKER 12/09/2023 8:36 PM BOIL OFF WORKER us Nicolas Dobbs MD LAB BLOOD ORDERABLE S Final Result [facility] Department [place] [address] * eGFR (12/08/2023 9:04 PM BOIL OFF WORKER) eGFR >90 >=60 mL/min/1. 73 m2 [facility] Comment: Interpretive Data Reference Interval [...] interpretive data was last reviewed 2021. Blood 12/08/2023 9:04 PM BOIL OFF WORKER 12/08/2023 9:53 PM BOIL OFF WORKER us Nicolas Dobbs MD LAB BLOOD ORDERABLE S Final Result [facility] Department [place] [address] * Differential, auto (12/08/2023 9:04 PM BOIL OFF WORKER) Neutrophil abs 3.5 1.5 - 6.5 K/cumm [facility] Imm gran abs 0.1 0.0 - 0.1 K/cumm [facility] Lymphocyte abs 1.4 0.8 - 3.3 K/cumm [facility] Monocyte abs 0.5 0.2 - 0.8 K/cumm [facility] Eosinophil abs 0.2 0.0 - 0.5 K/cumm [facility] Basophil abs 0.0 0.0 - 0.1 K/cumm [facility] Neutrophil pct 62.2 % [facility] Comment: Interpretive Data Percent cell count reference ranges are not reported, since discordance with absolute values may lead to misinterpretation of CBC data. Current Interpretive Data was last revised on 2018. Imm gran pct 0.9 % [facility] Comment: Interpretive Data Percent cell count reference ranges are not reported, since discordance with absolute values may lead to misinterpretation of CBC data. Current Interpretive Data was last revised on 2018. Lymphocyte pct 25.1 % [facility] Comment: Interpretive Data Percent cell count reference ranges are not reported, since discordance with absolute values may lead to misinterpretation of CBC data. Current Interpretive Data was last revised on 2018. Monocyte pct 8.0 % [facility] Comment: Interpretive Data Percent cell count reference ranges are not reported, since discordance with absolute values may lead to misinterpretation of CBC data. Current Interpretive Data was last revised on 2018. Eosinophil pct 3.6 % [facility] Comment: Interpretive Data Percent cell count reference ranges are not reported, since discordance with absolute values may lead to misinterpretation of CBC data. Current Interpretive Data was last revised on 2018. Basophil pct 0.2 % [facility] Comment: Interpretive Data Percent cell count reference ranges are not reported, since discordance with absolute values may lead to misinterpretation of CBC data. Current Interpretive Data was last revised on 2018. Blood 12/08/2023 9:04 PM BOIL OFF WORKER 12/08/2023 9:53 PM BOIL OFF WORKER Nicolas Dobbs MD LAB BLOOD ORDERABLE S Final Result Performing Organization Address [facility] Co de Phone Number [facility] [place] [address] * Type and screen (12/08/2023 9:04 PM BOIL OFF WORKER) Pathologist [facility] ABO Rh O Positive Jigna, indirect Negative [facility] Blood 12/08/2023 9:04 PM BOIL OFF WORKER 12/08/2023 9:48 PM BOIL OFF WORKER Narrative [facility] - 12/08/2023 10:32 PM BOIL OFF WORKER Has the patient had Daratumumab or Isatuximab in the past 6 months?->Unknown Nicolas Dobbs MD LAB BLOOD BANK TEST ORDERABLES Final Result Performing Organization Address [facility] Co de Phone Number [facility] [place] [address] * (ABNORMAL) CBC with auto differential (12/08/2023 9:04 PM BOIL OFF WORKER) Pathologist [facility] WBC 5.6 3.8 - 9.9 K/cumm [facility] Hgb 9.3(L) 13.0 - 17.5 g/dL [facility] Hct 29.0(L) 38.9 - 50.3 % [facility] [facility] Plt 299 150 - 400 K/cumm [facility] MPV 10.0 9.1 - 12.3 fL [facility] RBC 3.10(L) 4.30 - 5.80 M/cumm [facility] MCV 93.5 81.3 - 96.4 fL [facility] MCH 30.0 27.1 - 33.3 pg [facility] MCHC 32.1(L) 32.3 - 35.7 g/dL [facility] RDW CV 16.4(H) 11.1 - 14.9 % [facility] RDW SD 56.7(H) 35.7 - 48.1 fL [facility] NRBC abs 0.00 0.00 - 0.01 K/cumm [facility] Blood 12/08/2023 9:04 PM BOIL OFF WORKER 12/08/2023 9:53 PM BOIL OFF WORKER Nicolas Dobbs MD LAB BLOOD ORDERABLE S Final Result Performing Organization Address City/[facility]/ZIP Co de Phone Number [facility] Department [place] [address] * Phosphorus (12/08/2023 9:04 PM BOIL OFF WORKER) Phosphorus, pl 3.7 2.3 - 4.5 mg/dL [facility] Blood 12/08/2023 9:04 PM BOIL OFF WORKER 12/08/2023 9:53 PM BOIL OFF WORKER Nicolas Dobbs MD LAB BLOOD ORDERABLE S Final Result Performing Organization Address City/[facility] Co de Phone Number [facility] Department [place] [address] * Magnesium (12/08/2023 9:04 PM BOIL OFF WORKER) Magnesium 1.9 1.4 - 2.5 mg/dL [facility] Blood 12/08/2023 9:04 PM BOIL OFF WORKER 12/08/2023 9:53 PM BOIL OFF WORKER Nicolas Dobbs MD LAB BLOOD ORDERABLE S Final Result Performing Organization Address City/[facility]/ZIP Co de Phone Number [facility] Department [place] [address] * (ABNORMAL) Hepatic function panel (12/08/2023 9:04 PM BOIL OFF WORKER) [facility] Bilirubin, total 0.2 0.1 - 1.2 mg/dL [facility] Bilirubin, direct <0.2 0.1 - 0.3 mg/dL [facility] Protein, pl 6.4(L) 6.5 - 8.5 g/dL [facility] Albumin 3.1(L) 3.5 - 5.0 g/dL [facility] Alk phos 138(H) 40 - 130 Units/L [facility] ALT 36 7 - 55 Units/L [facility] AST 42 10 - 50 Units/L [facility] Comment:Hemolyzed; result ma y be falsely elevated Blood 12/08/2023 9:04 PM BOIL OFF WORKER 12/08/2023 9:53 PM BOIL OFF WORKER Nicolas Dobbs MD LAB BLOOD ORDERABLE S Final Result [facility] Department [place] [address] * Basic metabolic panel (12/08/2023 9:04 PM BOIL OFF WORKER) [facility] Sodium 137 135 - 145 mmol/L [facility] Potassium, pl 4.6 3.3 - 4.9 mmol/L [facility] Comment:Hemolyzed; Potassium value may be falsely elevated by as much as 0.3-0.5 mmol/L. Suggest redraw and reanalysis. Chloride 103 97 - 110 mmol/L [facility] CO2 25 22 - 32 mmol/L [facility] Anion gap 9 2 - 15 mmol/L [facility] BUN 21 6 - 25 mg/dL [facility] Creatinine 0.80 0.80 - 1.30 mg/dL [facility] Glucose 105 70 - 199 mg/dL [facility] Comment: Interpretive Data Fasting glucose [...] 2022. Calcium 9.0 8.5 - 10.3 mg/dL [facility] Blood 12/08/2023 9:04 PM BOIL OFF WORKER 12/08/2023 9:53 PM BOIL OFF WORKER us Nicolas Dobsb MD LAB BLOOD ORDERABLE S Final Result [facility] Department [place] [address] * eGFR (12/08/2023 4:08 AM BOIL OFF WORKER) eGFR >90 >=60 mL/min/1. 73 m2 [facility] Comment: Interpretive Data Reference Interval [...] interpretive data was last reviewed 2021. Blood 12/08/2023 4:08 AM BOIL OFF WORKER 12/08/2023 4:31 AM BOIL OFF WORKER us Nicolas Dobbs MD LAB BLOOD ORDERABLE S Final Result [facility] Department [place] [address] * Differential, auto (12/08/2023 4:08 AM BOIL OFF WORKER) Neutrophil abs 2.7 1.5 - 6.5 K/cumm [facility] Imm gran abs 0.1 0.0 - 0.1 K/cumm [facility] Lymphocyte abs 1.5 0.8 - 3.3 K/cumm [facility] Monocyte abs 0.5 0.2 - 0.8 K/cumm [facility] Eosinophil abs 0.3 0.0 - 0.5 K/cumm [facility] Basophil abs 0.0 0.0 - 0.1 K/cumm [facility] Neutrophil pct 53.6 % [facility] Comment: Interpretive Data Percent cell count reference ranges are not reported, since discordance with absolute values may lead to misinterpretation of CBC data. Current Interpretive Data was last revised on 2018. Imm gran pct 1.2 % [facility] Comment: Interpretive Data Percent cell count reference ranges are not reported, since discordance with absolute values may lead to misinterpretation of CBC data. Current Interpretive Data was last revised on 2018. Lymphocyte pct 29.3 % [facility] Comment: Interpretive Data Percent cell count reference ranges are not reported, since discordance with absolute values may lead to misinterpretation of CBC data. Current Interpretive Data was last revised on 2018. Monocyte pct 9.6 % [facility] Comment: Interpretive Data Percent cell count reference ranges are not reported, since discordance with absolute values may lead to misinterpretation of CBC data. Current Interpretive Data was last revised on 2018. Eosinophil pct 5.7 % [facility] Comment: Interpretive Data Percent cell count reference ranges are not reported, since discordance with absolute values may lead to misinterpretation of CBC data. Current Interpretive Data was last revised on 2018. Basophil pct 0.6 % [facility] Comment: Interpretive Data Percent cell count reference ranges are not reported, since discordance with absolute values may lead to misinterpretation of CBC data. Current Interpretive Data was last revised on 2018. Blood 12/08/2023 4:08 AM BOIL OFF WORKER 12/08/2023 4:31 AM BOIL OFF WORKER us Nicolas Dobbs MD LAB BLOOD ORDERABLE S Final Result [facility] Department [place] [address] * (ABNORMAL) CBC with auto differential (12/08/2023 4:08 AM BOIL OFF WORKER) WBC 5.1 3.8 - 9.9 K/cumm [facility] Hgb 8.6(L) 13.0 - 17.5 g/dL [facility] Hct 26.6(L) 38.9 - 50.3 % [facility] Plt 286 150 - 400 K/cumm [facility] MPV 9.7 9.1 - 12.3 fL [facility] RBC 2.85(L) 4.30 - 5.80 M/cumm [facility] MCV 93.3 81.3 - 96.4 fL [facility] MCH 30.2 27.1 - 33.3 pg [facility] MCHC 32.3 32.3 - 35.7 g/dL [facility] RDW CV 16.2(H) 11.1 - 14.9 % [facility] RDW SD 55.8(H) 35.7 - 48.1 fL [facility] NRBC abs 0.00 0.00 - 0.01 K/cumm [facility] Blood 12/08/2023 4:08 AM BOIL OFF WORKER 12/08/2023 4:31 AM BOIL OFF WORKER Nicolas Dobbs MD LAB BLOOD ORDERABLE S Final Result Performing Organization Address [facility] [place] [address] * Phosphorus (12/08/2023 4:08 AM BOIL OFF WORKER) Phosphorus, pl 3.5 2.3 - 4.5 mg/dL [facility] Blood 12/08/2023 4:08 AM BOIL OFF WORKER 12/08/2023 4:31 AM BOIL OFF WORKER Nicolas Dobbs MD LAB BLOOD ORDERABLE S Final Result Performing Organization Address [facility] de Phone Number [facility] [place] [address] * Magnesium (12/08/2023 4:08 AM BOIL OFF WORKER) Magnesium 1.9 1.4 - 2.5 mg/dL [facility] Blood 12/08/2023 4:08 AM BOIL OFF WORKER 12/08/2023 4:31 AM BOIL OFF WORKER Nicolas Dobbs MD LAB BLOOD ORDERABLE S Final Result Performing Organization Address [facility] [place] [address] * (ABNORMAL) Hepatic function panel (12/08/2023 4:08 AM BOIL OFF WORKER) Bilirubin, total 0.2 0.1 - 1.2 mg/dL [facility] Bilirubin, direct <0.2 0.1 - 0.3 mg/dL [facility] Protein, pl 5.9(L) 6.5 - 8.5 g/dL [facility] Albumin 2.8(L) 3.5 - 5.0 g/dL [facility] Alk phos 131(H) 40 - 130 Units/L [facility] ALT 32 7 - 55 Units/L [facility] AST 24 10 - 50 Units/L [facility] Blood 12/08/2023 4:08 AM BOIL OFF WORKER 12/08/2023 4:31 AM BOIL OFF WORKER Nicolas Dobbs MD LAB BLOOD ORDERABLE S Final Result Performing Organization Address City/[facility]/ZIP Co de Phone Number [facility] Department [place] [address] * Basic metabolic panel (12/08/2023 4:08 AM BOIL OFF WORKER) Pathologist [facility] Sodium 139 135 - 145 mmol/L [facility] Potassium, pl 3.9 3.3 - 4.9 mmol/L [facility] Chloride 106 97 - 110 mmol/L [facility] CO2 24 22 - 32 mmol/L [facility] Anion gap 9 2 - 15 mmol/L [facility] BUN 19 6 - 25 mg/dL [facility] Creatinine 0.83 0.80 - 1.30 mg/dL [facility] Glucose 93 70 - 199 mg/dL [facility] Comment: Interpretive Data Fasting glucose [...] interpretive data was last revised 2022. Calcium 8.8 8.5 - 10.3 mg/dL [facility] Blood 12/08/2023 4:08 AM BOIL OFF WORKER 12/08/2023 4:31 AM BOIL OFF WORKER Nicolas Dobbs MD LAB BLOOD ORDERABLE S Final Result Performing Organization Address City/[facility]/ZIP Co de Phone Number [facility] Department [place] [address] * Differential, auto (12/07/2023 1:11 AM BOIL OFF WORKER) Neutrophil abs 2.8 1.5 - 6.5 K/cumm [facility] Imm gran abs 0.1 0.0 - 0.1 K/cumm [facility] Lymphocyte abs 1.6 0.8 - 3.3 K/cumm [facility] Monocyte abs 0.4 0.2 - 0.8 K/cumm [facility] Eosinophil abs 0.3 0.0 - 0.5 K/cumm [facility] Basophil abs 0.0 0.0 - 0.1 K/cumm [facility] Neutrophil pct 54.0 % [facility] Comment: Interpretive Data Percent cell count reference ranges are not reported, since discordance with absolute values may lead to misinterpretation of CBC data. Current Interpretive Data was last revised on 2018. Imm gran pct 1.7 % [facility] Comment: Interpretive Data Percent cell count reference ranges are not reported, since discordance with absolute values may lead to misinterpretation of CBC data. Current Interpretive Data was last revised on 2018. Lymphocyte pct 30.8 % [facility] Comment: Interpretive Data Percent cell count reference ranges are not reported, since discordance with absolute values may lead to misinterpretation of CBC data. Current Interpretive Data was last revised on 2018. Monocyte pct 7.6 % [facility] Comment: Interpretive Data Percent cell count reference ranges are not reported, since discordance with absolute values may lead to misinterpretation of CBC data. Current Interpretive Data was last revised on 2018. Eosinophil pct 5.5 % [facility] Comment: Interpretive Data Percent cell count reference ranges are not reported, since discordance with absolute values may lead to misinterpretation of CBC data. Current Interpretive Data was last revised on 2018. Basophil pct 0.4 % [facility] Comment: Interpretive Data Percent cell count reference ranges are not reported, since discordance with absolute values may lead to misinterpretation of CBC data. Current Interpretive Data was last revised on 2018. Blood 12/07/2023 1:11 AM BOIL OFF WORKER 12/07/2023 2:04 AM BOIL OFF WORKER us Nicolas Dobbs MD LAB BLOOD ORDERABLE S Final Result Performing Organization Address [facility] Co nj Phone Number [facility] Department [place] [address] * eGFR (12/07/2023 1:11 AM BOIL OFF WORKER) eGFR 75 >=60 mL/min/1. 73 m2 [facility] Comment: Interpretive Data Reference Interval [...] interpretive data was last reviewed 2021. Blood 12/07/2023 1:11 AM BOIL OFF WORKER 12/07/2023 1:30 AM BOIL OFF WORKER Nicolas Dobbs MD LAB BLOOD ORDERABLE S Final Result Performing Organization Address City/State/[facility] Co de Phone Number [facility] Department [place] [address] * Heparin anti factor Xa activity (12/07/2023 1:11 AM BOIL OFF WORKER) [facility] Anti Factor Xa 0.68 IUnits/mL [facility] Comment: Interpretive Data Enoxaparin therapeutic range (peak): VTE treatment, Q12hr dosin.60-1.00 IUnits/mL VTE treatment, Q24hr dosin.00-2.00 IUnits/mL Q24hr dosing for renal impairment (CrCl <30 mL/min): 0.60-1.00 IUnits/mL VTE prevention: 0.10-0.40 IUnits/mL - Anti-Xa therapeutic ranges apply to blood samples drawn 4 hours after last dose (peak). - Unfractionated heparin (UFH) therapeutic range: 0.30-0.70 IUnits/mL - Direct factor Xa inhibitors (rivaroxaban, apixaban): Results must be interpreted qualitatively. No activity detected suggests little anticoagulant activity. - In severe antithrombin deficiency, anti-Xa measurement may be inaccurate. - Interpretive guidelines developed in adult populations. Interpretive guidelines for pediatric patients have not been rigorously defined. - Current interpretive data was last revised on 2019. Blood 12/07/2023 1:11 AM BOIL OFF WORKER 12/07/2023 1:29 AM BOIL OFF WORKER Narrative [facility] - 12/07/2023 1:41 AM BOIL OFF WORKER Draw anti-Xa level on Sunday 2/2 @ 0130 (please make sure it is drawn 4-5 hours after the 3rd enoxaparin dose). Thank you. us Jimenez Henao MD LAB BLOOD ORDERABLES Final Result Performing Organization Address City/[facility]/ZIP Co de Phone Number [facility] Department [place] [address] * (ABNORMAL) CBC with auto differential (12/07/2023 1:11 AM BOIL OFF WORKER) [facility] WBC 5.2 3.8 - 9.9 K/cumm [facility] Hgb 8.5(L) 13.0 - 17.5 g/dL [facility] Hct 26.3(L) 38.9 - 50.3 % [facility] Plt 286 150 - 400 K/cumm [facility] MPV 10.1 9.1 - 12.3 fL [facility] RBC 2.78(L) 4.30 - 5.80 M/cumm [facility] MCV 94.6 81.3 - 96.4 fL [facility] MCH 30.6 27.1 - 33.3 pg [facility] MCHC 32.3 32.3 - 35.7 g/dL [facility] RDW CV 16.6(H) 11.1 - 14.9 % [facility] RDW SD 57.1(H) 35.7 - 48.1 fL [facility] NRBC abs 0.00 0.00 - 0.01 K/cumm [facility] Blood 12/07/2023 1:11 AM BOIL OFF WORKER 12/07/2023 2:04 AM BOIL OFF WORKER Nicolas Dobbs MD LAB BLOOD ORDERABLE S Final Result [facility] [place] [address] * Phosphorus (12/07/2023 1:11 AM BOIL OFF WORKER) [facility] Phosphorus, pl 3.9 2.3 - 4.5 mg/dL [facility] Blood 12/07/2023 1:11 AM BOIL OFF WORKER 12/07/2023 1:30 AM BOIL OFF WORKER Nicolas Dobbs MD LAB BLOOD ORDERABLE S Final Result [facility] [place] [address] * Magnesium (12/07/2023 1:11 AM BOIL OFF WORKER) [facility] Magnesium 1.9 1.4 - 2.5 mg/dL [facility] Blood 12/07/2023 1:11 AM BOIL OFF WORKER 12/07/2023 1:30 AM BOIL OFF WORKER Nicolas Dobbs MD LAB BLOOD ORDERABLE S Final Result Performing Organization Address [facility] Co de Phone Number [facility] [place] [address] * (ABNORMAL) Hepatic function panel (12/07/2023 1:11 AM BOIL OFF WORKER) [facility] Bilirubin, total 0.2 0.1 - 1.2 mg/dL [facility] Bilirubin, direct <0.2 0.1 - 0.3 mg/dL [facility] Protein, pl 5.9(L) 6.5 - 8.5 g/dL [facility] Albumin 2.8(L) 3.5 - 5.0 g/dL [facility] Alk phos 132(H) 40 - 130 Units/L [facility] ALT 37 7 - 55 Units/L [facility] AST 29 10 - 50 Units/L [facility] Blood 12/07/2023 1:11 AM BOIL OFF WORKER 12/07/2023 1:30 AM BOIL OFF WORKER Nicolas Dobbs MD LAB BLOOD ORDERABLE S Final Result Performing Organization Address [facility] de Phone Number [facility] [place] [address] * Basic metabolic panel (12/07/2023 1:11 AM BOIL OFF WORKER) [facility] Sodium 137 135 - 145 mmol/L [facility] Potassium, pl 4.0 3.3 - 4.9 mmol/L [facility] Chloride 104 97 - 110 mmol/L [facility] CO2 24 22 - 32 mmol/L [facility] Anion gap 9 2 - 15 mmol/L [facility] BUN 21 6 - 25 mg/dL [facility] Creatinine 1.05 0.80 - 1.30 mg/dL [facility] Glucose 93 70 - 199 mg/dL [facility] Comment: Interpretive Data Fasting glucose [...] interpretive data was last revised 2022. Calcium 8.5 8.5 - 10.3 mg/dL [facility] Blood 12/07/2023 1:11 AM BOIL OFF WORKER 12/07/2023 1:30 AM BOIL OFF WORKER Nicolas Dobbs MD LAB BLOOD ORDERABLE S Final Result [facility] Department [place] [address] * eGFR (12/05/2023 10:10 PM BOIL OFF WORKER) eGFR >90 >=60 mL/min/1. 73 m2 [facility] Comment: Interpretive Data Reference Interval [...] interpretive data was last reviewed 2021. Blood 12/05/2023 10:1 0 PM BOIL OFF WORKER 12/05/2023 10:56 PM BOIL OFF WORKER us Nicolas Dobbs MD LAB BLOOD ORDERABLE S Final Result [facility] Department [place] [address] * Differential, auto (12/05/2023 10:10 PM BOIL OFF WORKER) Neutrophil abs 3.3 1.5 - 6.5 K/cumm [facility] Imm gran abs 0.1 0.0 - 0.1 K/cumm [facility] Lymphocyte abs 1.3 0.8 - 3.3 K/cumm [facility] Monocyte abs 0.5 0.2 - 0.8 K/cumm [facility] Eosinophil abs 0.3 0.0 - 0.5 K/cumm [facility] Basophil abs 0.0 0.0 - 0.1 K/cumm [facility] Neutrophil pct 60.9 % [facility] Comment: Interpretive Data Percent cell count reference ranges are not reported, since discordance with absolute values may lead to misinterpretation of CBC data. Current Interpretive Data was last revised on 2018. Imm gran pct 0.9 % [facility] Comment: Interpretive Data Percent cell count reference ranges are not reported, since discordance with absolute values may lead to misinterpretation of CBC data. Current Interpretive Data was last revised on 2018. Lymphocyte pct 22.9 % [facility] Comment: Interpretive Data Percent cell count reference ranges are not reported, since discordance with absolute values may lead to misinterpretation of CBC data. Current Interpretive Data was last revised on 2018. Monocyte pct 8.8 % [facility] Comment: Interpretive Data Percent cell count reference ranges are not reported, since discordance with absolute values may lead to misinterpretation of CBC data. Current Interpretive Data was last revised on 2018. Eosinophil pct 6.1 % [facility] Comment: Interpretive Data Percent cell count reference ranges are not reported, since discordance with absolute values may lead to misinterpretation of CBC data. Current Interpretive Data was last revised on 2018. Basophil pct 0.4 % [facility] Comment: Interpretive Data Percent cell count reference ranges are not reported, since discordance with absolute values may lead to misinterpretation of CBC data. Current Interpretive Data was last revised on 2018. Blood 12/05/2023 10:1 0 PM BOIL OFF WORKER 12/05/2023 10:56 PM BOIL OFF WORKER Nicolas Dobbs MD LAB BLOOD ORDERABLE S Final Result Performing Organization Address City/[facility]/ZIP Co de Phone Number [facility] [place] [address] * Type and screen (12/05/2023 10:10 PM BOIL OFF WORKER) Pathologist [facility] ABO Rh O Positive Jigna, indirect Negative [facility] Blood 12/05/2023 10:1 0 PM BOIL OFF WORKER 12/05/2023 10:45 PM BOIL OFF WORKER Narrative [facility] - 12/05/2023 11:45 PM BOIL OFF WORKER Has the patient had Daratumumab or Isatuximab in the past 6 months?->Unknown Nicolas Dobbs MD LAB BLOOD BANK TEST ORDERABLES Final Result [facility] [place] [address] * (ABNORMAL) CBC with auto differential (12/05/2023 10:10 PM BOIL OFF WORKER) Pathologist [facility] WBC 5.5 3.8 - 9.9 K/cumm [facility] Hgb 8.8(L) 13.0 - 17.5 g/dL [facility] Hct 27.3(L) 38.9 - 50.3 % [facility] Plt 286 150 - 400 K/cumm [facility] MPV 9.9 9.1 - 12.3 fL [facility] RBC 2.94(L) 4.30 - 5.80 M/cumm [facility] MCV 92.9 81.3 - 96.4 fL [facility] MCH 29.9 27.1 - 33.3 pg [facility] MCHC 32.2(L) 32.3 - 35.7 g/dL [facility] RDW CV 16.1(H) 11.1 - 14.9 % [facility] RDW SD 53.8(H) 35.7 - 48.1 fL [facility] NRBC abs 0.00 0.00 - 0.01 K/cumm [facility] Blood 12/05/2023 10:1 0 PM BOIL OFF WORKER 12/05/2023 10:56 PM BOIL OFF WORKER Nicolas Dobbs MD LAB BLOOD ORDERABLE S Final Result [facility] [place] [address] * Phosphorus (12/05/2023 10:10 PM BOIL OFF WORKER) Pathologist [facility] Phosphorus, pl 3.3 2.3 - 4.5 mg/dL [facility] Blood 12/05/2023 10:1 0 PM BOIL OFF WORKER 12/05/2023 10:56 PM BOIL OFF WORKER Nicolas Dobbs MD LAB BLOOD ORDERABLE S Final Result Performing Organization Address City/[facility]/ZIP Co de Phone Number [facility] [place] [address] * Magnesium (12/05/2023 10:10 PM BOIL OFF WORKER) [facility] Magnesium 1.8 1.4 - 2.5 mg/dL [facility] Blood 12/05/2023 10:1 0 PM BOIL OFF WORKER 12/05/2023 10:56 PM BOIL OFF WORKER Nicolas Dobbs MD LAB BLOOD ORDERABLE S Final Result Performing Organization Address [facility] de Phone Number [facility] [place] [address] * (ABNORMAL) Hepatic function panel (12/05/2023 10:10 PM BOIL OFF WORKER) [facility] Bilirubin, total 0.2 0.1 - 1.2 mg/dL [facility] Bilirubin, direct <0.2 0.1 - 0.3 mg/dL [facility] Protein, pl 5.9(L) 6.5 - 8.5 g/dL [facility] Albumin 2.9(L) 3.5 - 5.0 g/dL [facility] Alk phos 146(H) 40 - 130 Units/L [facility] ALT 47 7 - 55 Units/L [facility] AST 37 10 - 50 Units/L [facility] Blood 12/05/2023 10:1 0 PM BOIL OFF WORKER 12/05/2023 10:56 PM BOIL OFF WORKER Nicolas Dobbs MD LAB BLOOD ORDERABLE S Final Result Performing Organization Address [facility] de Phone Number [facility] [place] [address] * (ABNORMAL) Basic metabolic panel (12/05/2023 10:10 PM BOIL OFF WORKER) [facility] Sodium 137 135 - 145 mmol/L [facility] Potassium, pl 3.6 3.3 - 4.9 mmol/L [facility] Chloride 105 97 - 110 mmol/L [facility] CO2 22 22 - 32 mmol/L [facility] Anion gap 10 2 - 15 mmol/L [facility] BUN 19 6 - 25 mg/dL [facility] Creatinine 0.80 0.80 - 1.30 mg/dL [facility] Glucose 122 70 - 199 mg/dL [facility] Comment: Interpretive Data Fasting glucose [...] interpretive data was last revised 2022. Calcium 8.2(L) 8.5 - 10.3 mg/dL [facility] Blood 12/05/2023 10:1 0 PM BOIL OFF WORKER 12/05/2023 10:56 PM BOIL OFF WORKER Nicolas Dobbs MD LAB BLOOD ORDERABLE S Final Result [facility] [place] [address] * POCT glucose (12/05/2023 12:12 PM BOIL OFF WORKER) Glucose, POC 111 70 - 199 mg/dL [facility] Blood 12/05/2023 12:1 2 PM BOIL OFF WORKER 12/05/2023 12:12 PM BOIL OFF WORKER us Jimenez Henao MD LAB POCT ORDERABLES - DEVICE Final Result [facility] [place] [address] * POCT glucose (12/05/2023 7:59 AM BOIL OFF WORKER) Glucose, POC 156 70 - 199 mg/dL [facility] Blood 12/05/2023 7:59 AM BOIL OFF WORKER 12/05/2023 7:59 AM BOIL OFF WORKER us Jimenez Henao MD LAB POCT ORDERABLES - DEVICE Final Result Performing Organization Address [facility] de Phone Number [facility] [place] [address] * (ABNORMAL) aPTT (12/05/2023 5:06 AM BOIL OFF WORKER) aPTT 81(H) 28 - 38 sec [facility] Comment: Interpretive Data Heparin therapeutic range: 66.0 - 100.0 seconds. Range based on correlation with therapeutic heparin activity range of 0.3 - 0.7 Units/mL. Current interpretive data was last revised on 2023. Blood 12/05/2023 5:06 AM BOIL OFF WORKER 12/05/2023 6:15 AM BOIL OFF WORKER Jimenez Henao MD LAB BLOOD ORDERABLES Final Result Performing Organization Address [facility] de Phone Number [facility] [place] [address] * eGFR (12/04/2023 11:43 PM BOIL OFF WORKER) Pathologist [facility] eGFR 80 >=60 mL/min/1. 73 m2 [facility] Comment: Interpretive Data Reference Interval [...] interpretive data was last reviewed 2021. Blood 12/04/2023 11:4 3 PM BOIL OFF WORKER 12/05/2023 1:25 AM BOIL OFF WORKER us Nicolas Dobbs MD LAB BLOOD ORDERABLE S Final Result [facility] Department [place] [address] * Differential, auto (12/04/2023 11:43 PM BOIL OFF WORKER) Pathologist [facility] Neutrophil abs 3.9 1.5 - 6.5 K/cumm [facility] Imm gran abs 0.1 0.0 - 0.1 K/cumm [facility] Lymphocyte abs 1.4 0.8 - 3.3 K/cumm [facility] Monocyte abs 0.5 0.2 - 0.8 K/cumm [facility] Eosinophil abs 0.3 0.0 - 0.5 K/cumm [facility] Basophil abs 0.0 0.0 - 0.1 K/cumm [facility] Neutrophil pct 63.2 % [facility] Comment: Interpretive Data Percent cell count reference ranges are not reported, since discordance with absolute values may lead to misinterpretation of CBC data. Current Interpretive Data was last revised on 2018. Imm gran pct 1.5 % [facility] Comment: Interpretive Data Percent cell count reference ranges are not reported, since discordance with absolute values may lead to misinterpretation of CBC data. Current Interpretive Data was last revised on 2018. Lymphocyte pct 22.4 % [facility] Comment: Interpretive Data Percent cell count reference ranges are not reported, since discordance with absolute values may lead to misinterpretation of CBC data. Current Interpretive Data was last revised on 2018. Monocyte pct 7.4 % [facility] Comment: Interpretive Data Percent cell count reference ranges are not reported, since discordance with absolute values may lead to misinterpretation of CBC data. Current Interpretive Data was last revised on 2018. Eosinophil pct 5.2 % [facility] Comment: Interpretive Data Percent cell count reference ranges are not reported, since discordance with absolute values may lead to misinterpretation of CBC data. Current Interpretive Data was last revised on 2018. Basophil pct 0.3 % [facility] Comment: Interpretive Data Percent cell count reference ranges are not reported, since discordance with absolute values may lead to misinterpretation of CBC data. Current Interpretive Data was last revised on 2018. Blood 12/04/2023 11:4 3 PM BOIL OFF WORKER 12/05/2023 1:20 AM BOIL OFF WORKER us Nicolas Dobbs MD LAB BLOOD ORDERABLE S Final Result [facility] Department [place] [address] * (ABNORMAL) CBC with auto differential (12/04/2023 11:43 PM BOIL OFF WORKER) WBC 6.1 3.8 - 9.9 K/cumm [facility] Hgb 8.7(L) 13.0 - 17.5 g/dL [facility] Hct 27.6(L) 38.9 - 50.3 % [facility] Plt 338 150 - 400 K/cumm [facility] MPV 9.8 9.1 - 12.3 fL [facility] RBC 2.96(L) 4.30 - 5.80 M/cumm [facility] MCV 93.2 81.3 - 96.4 fL [facility] MCH 29.4 27.1 - 33.3 pg [facility] MCHC 31.5(L) 32.3 - 35.7 g/dL [facility] RDW CV 15.9(H) 11.1 - 14.9 % [facility] RDW SD 53.3(H) 35.7 - 48.1 fL [facility] NRBC abs 0.00 0.00 - 0.01 K/cumm [facility] Blood 12/04/2023 11:4 3 PM BOIL OFF WORKER 12/05/2023 1:20 AM BOIL OFF WORKER Nicolas Dobbs MD LAB BLOOD ORDERABLE S Final Result [facility] [place] [address] * Phosphorus (12/04/2023 11:43 PM BOIL OFF WORKER) Phosphorus, pl 3.9 2.3 - 4.5 mg/dL [facility] Blood 12/04/2023 11:4 3 PM BOIL OFF WORKER 12/05/2023 1:25 AM BOIL OFF WORKER Nicolas Dobbs MD LAB BLOOD ORDERABLE S Final Result Performing Organization Address City/[facility] Co de Phone Number [facility] Department [place] [address] * Magnesium (12/04/2023 11:43 PM BOIL OFF WORKER) Magnesium 1.9 1.4 - 2.5 mg/dL [facility] Blood 12/04/2023 11:4 3 PM BOIL OFF WORKER 12/05/2023 1:25 AM BOIL OFF WORKER Nicolas Dobbs MD LAB BLOOD ORDERABLE S Final Result Performing Organization Address City/[facility] Co de Phone Number [facility] [place] [address] * (ABNORMAL) Hepatic function panel (12/04/2023 11:43 PM BOIL OFF WORKER) Bilirubin, total 0.2 0.1 - 1.2 mg/dL [facility] Bilirubin, direct <0.2 0.1 - 0.3 mg/dL [facility] Protein, pl 6.1(L) 6.5 - 8.5 g/dL [facility] Albumin 2.8(L) 3.5 - 5.0 g/dL [facility] Alk phos 156(H) 40 - 130 Units/L [facility] ALT 52 7 - 55 Units/L [facility] AST 48 10 - 50 Units/L [facility] Blood 12/04/2023 11:4 3 PM BOIL OFF WORKER 12/05/2023 1:25 AM BOIL OFF WORKER us Nicolas Dobbs MD LAB BLOOD ORDERABLE S Final Result [facility] Department [place] [address] * Basic metabolic panel (12/04/2023 11:43 PM BOIL OFF WORKER) [facility] Sodium 138 135 - 145 mmol/L [facility] Potassium, pl 3.8 3.3 - 4.9 mmol/L [facility] Chloride 107 97 - 110 mmol/L [facility] CO2 23 22 - 32 mmol/L [facility] Anion gap 8 2 - 15 mmol/L [facility] BUN 22 6 - 25 mg/dL [facility] Creatinine 1.00 0.80 - 1.30 mg/dL [facility] Glucose 94 70 - 199 mg/dL [facility] Comment: Interpretive Data Fasting glucose [...] interpretive data was last revised 2022. Calcium 8.5 8.5 - 10.3 mg/dL [facility] Blood 12/04/2023 11:4 3 PM BOIL OFF WORKER 12/05/2023 1:25 AM BOIL OFF WORKER Nicolas Dobbs MD LAB BLOOD ORDERABLE S Final Result Performing Organization Address [facility] de Phone Number [facility] [place] [address] * POCT glucose (12/04/2023 8:44 PM BOIL OFF WORKER) Glucose, POC 116 70 - 199 mg/dL [facility] Blood 12/04/2023 8:44 PM BOIL OFF WORKER 12/04/2023 8:44 PM BOIL OFF WORKER Jimenez Henao MD LAB POCT ORDERABLES - DEVICE Final Result Performing Organization Address [facility] de Phone Number [facility] [place] [address] * POCT glucose (12/04/2023 4:25 PM BOIL OFF WORKER) Glucose, POC 112 70 - 199 mg/dL [facility] Blood 12/04/2023 4:25 PM BOIL OFF WORKER 12/04/2023 4:25 PM BOIL OFF WORKER Jimenez Henao MD LAB POCT ORDERABLES - DEVICE Final Result Performing Organization Address [facility] de Phone Number [facility] [place] [address] * POCT glucose (12/04/2023 11:36 AM BOIL OFF WORKER) Glucose, POC 120 70 - 199 mg/dL [facility] Blood 12/04/2023 11:3 6 AM BOIL OFF WORKER 12/04/2023 11:36 AM BOIL OFF WORKER us Jimenez Henao MD LAB POCT ORDERABLES - DEVICE Final Result Performing Organization Address [facility] Co de Phone Number [facility] [place] [address] * POCT glucose (12/04/2023 7:24 AM BOIL OFF WORKER) Pathologist [facility] Glucose, POC 111 70 - 199 mg/dL [facility] Blood 12/04/2023 7:24 AM BOIL OFF WORKER 12/04/2023 7:24 AM BOIL OFF WORKER us Jimenez Henao MD LAB POCT ORDERABLES - DEVICE Final Result Performing Organization Address [facility] de Phone Number [facility] [place] [address] * eGFR (12/03/2023 10:04 PM BOIL OFF WORKER) Pathologist [facility] eGFR 90 >=60 mL/min/1. 73 m2 [facility] Comment: Interpretive Data Reference Interval [...] interpretive data was last reviewed 2021. Blood 12/03/2023 10:0 4 PM BOIL OFF WORKER 12/03/2023 10:41 PM BOIL OFF WORKER us Nicolas Dobbs MD LAB BLOOD ORDERABLE S Final Result [facility] Department [place] [address] * Differential, auto (12/03/2023 10:04 PM BOIL OFF WORKER) Neutrophil abs 3.3 1.5 - 6.5 K/cumm [facility] Imm gran abs 0.1 0.0 - 0.1 K/cumm [facility] Lymphocyte abs 1.3 0.8 - 3.3 K/cumm [facility] Monocyte abs 0.4 0.2 - 0.8 K/cumm [facility] Eosinophil abs 0.3 0.0 - 0.5 K/cumm [facility] Basophil abs 0.0 0.0 - 0.1 K[facility] Neutrophil pct 60.8 % [facility] Comment: Interpretive Data Percent cell count reference ranges are not reported, since discordance with absolute values may lead to misinterpretation of CBC data. Current Interpretive Data was last revised on 2018. Imm gran pct 1.5 % [facility] Comment: Interpretive Data Percent cell count reference ranges are not reported, since discordance with absolute values may lead to misinterpretation of CBC data. Current Interpretive Data was last revised on 2018. Lymphocyte pct 23.8 % [facility] Comment: Interpretive Data Percent cell count reference ranges are not reported, since discordance with absolute values may lead to misinterpretation of CBC data. Current Interpretive Data was last revised on 2018. Monocyte pct 7.2 % [facility] Comment: Interpretive Data Percent cell count reference ranges are not reported, since discordance with absolute values may lead to misinterpretation of CBC data. Current Interpretive Data was last revised on 2018. Eosinophil pct 6.3 % [facility] Comment: Interpretive Data Percent cell count reference ranges are not reported, since discordance with absolute values may lead to misinterpretation of CBC data. Current Interpretive Data was last revised on 2018. Basophil pct 0.4 % [facility] Comment: Interpretive Data Percent cell count reference ranges are not reported, since discordance with absolute values may lead to misinterpretation of CBC data. Current Interpretive Data was last revised on 2018. Blood 12/03/2023 10:0 4 PM BOIL OFF WORKER 12/03/2023 10:38 PM BOIL OFF WORKER Nicloas Dobbs MD LAB BLOOD ORDERABLE S Final Result Performing Organization Address [facility] Co de Phone Number [facility] [place] [address] * (ABNORMAL) aPTT (12/03/2023 10:04 PM BOIL OFF WORKER) aPTT 80(H) 28 - 38 sec [facility] Comment: Interpretive Data Heparin therapeutic range: 66.0 - 100.0 seconds. Range based on correlation with therapeutic heparin activity range of 0.3 - 0.7 Units/mL. Current interpretive data was last revised on 2023. Blood 12/03/2023 10:0 4 PM BOIL OFF WORKER 12/03/2023 10:46 PM BOIL OFF WORKER N[facility]ative [facility] 12/03/2023 10:55 PM BOIL OFF WORKER Draw STAT PTT 6 hrs after initiation of heparin infusion, draw STAT PTT 6 hours after each dose change, and every 6 hours until 2 consecutive PTTs are within therapeutic range. Once two consecutive PTT's are therapeutic (66-100 seconds), then draw PTT every AM until heparin is discontinued. us Vibha Ramirez MD LAB BLOOD ORDERABLES Fide l Result Performing Organization Address City/[facility]/ZIP Co de Phone Number [facility] [place] [address] * (ABNORMAL) CBC with auto differential (12/03/2023 10:04 PM BOIL OFF WORKER) [facility] WBC 5.4 3.8 - 9.9 K/cumm [facility] Hgb 8.7(L) 13.0 - 17.5 g/dL [facility] Hct 26.6(L) 38.9 - 50.3 % [facility] Plt 302 150 - 400 K/cumm [facility] MPV 9.9 9.1 - 12.3 fL [facility] RBC 2.92(L) 4.30 - 5.80 M/cumm [facility] MCV 91.1 81.3 - 96.4 fL [facility] MCH 29.8 27.1 - 33.3 pg [facility] MCHC 32.7 32.3 - 35.7 g/dL [facility] RDW CV 15.4(H) 11.1 - 14.9 % [facility] RDW SD 51.0(H) 35.7 - 48.1 fL [facility] NRBC abs 0.00 0.00 - 0.01 K/cumm [facility] Blood 12/03/2023 10:0 4 PM BOIL OFF WORKER 12/03/2023 10:38 PM BOIL OFF WORKER Nicolas Dobbs MD LAB BLOOD ORDERABLE S Final Result Performing Organization Address City/[facility]/ZIP Co de Phone Number [facility] Department [place] [address] * Phosphorus (12/03/2023 10:04 PM BOIL OFF WORKER) [facility] Phosphorus, pl 3.5 2.3 - 4.5 mg/dL [facility] Blood 12/03/2023 10:0 4 PM BOIL OFF WORKER 12/03/2023 10:41 PM BOIL OFF WORKER Nicolas Dobbs MD LAB BLOOD ORDERABLE S Final Result [facility] Department [place] [address] * Magnesium (12/03/2023 10:04 PM BOIL OFF WORKER) [facility] Magnesium 2.0 1.4 - 2.5 mg/dL [facility] Blood 12/03/2023 10:0 4 PM BOIL OFF WORKER 12/03/2023 10:41 PM BOIL OFF WORKER Nicolas Dobbs MD LAB BLOOD ORDERABLE S Final Result [facility] [place] [address] * (ABNORMAL) Hepatic function panel (12/03/2023 10:04 PM BOIL OFF WORKER) [facility] Bilirubin, total 0.2 0.1 - 1.2 mg/dL [facility] Bilirubin, direct <0.2 0.1 - 0.3 mg/dL [facility] Protein, pl 6.1(L) 6.5 - 8.5 g/dL [facility] Albumin 2.9(L) 3.5 - 5.0 g/dL [facility] Alk phos 160(H) 40 - 130 Units/L [facility] ALT 44 7 - 55 Units/L [facility] AST 43 10 - 50 Units/L [facility] Blood 12/03/2023 10:0 4 PM BOIL OFF WORKER 12/03/2023 10:41 PM BOIL OFF WORKER Nicolas Dobbs MD LAB BLOOD ORDERABLE S Final Result [facility] Department [place] [address] * (ABNORMAL) Basic metabolic panel (12/03/2023 10:04 PM BOIL OFF WORKER) [facility] Sodium 134(L) 135 - 145 mmol/L [facility] Potassium, pl 4.4 3.3 - 4.9 mmol/L [facility] Chloride 103 97 - 110 mmol/L [facility] CO2 23 22 - 32 mmol/L [facility] Anion gap 8 2 - 15 mmol/L [facility] BUN 23 6 - 25 mg/dL [facility] Creatinine 0.91 0.80 - 1.30 mg/dL [facility] Glucose 101 70 - 199 mg/dL [facility] Comment: Interpretive Data Fasting glucose [...] interpretive data was last revised 2022. Calcium 8.5 8.5 - 10.3 mg/dL [facility] Blood 12/03/2023 10:0 4 PM BOIL OFF WORKER 12/03/2023 10:41 PM BOIL OFF WORKER Nicolas Dobbs MD LAB BLOOD ORDERABLE S Final Result Performing Organization Address City/[facility]/ZIP Co de Phone Number [facility] [place] [address] * POCT glucose (12/03/2023 8:07 PM BOIL OFF WORKER) Glucose, POC 119 70 - 199 mg/dL [facility] Blood 12/03/2023 8:07 PM BOIL OFF WORKER 12/03/2023 8:07 PM BOIL OFF WORKER Nicolas Dobbs MD LAB POCT ORDERABLES - DEVICE Final Result Performing Organization Address City/[facility]/ZIP Co de Phone Number [facility] Department [place] [address] * POCT glucose (12/03/2023 4:37 PM BOIL OFF WORKER) Glucose, POC 123 70 - 199 mg/dL [facility] Blood 12/03/2023 4:37 PM BOIL OFF WORKER 12/03/2023 4:37 PM BOIL OFF WORKER Nicolas Dobbs MD LAB POCT ORDERABLES - DEVICE Final Result Performing Organization Address [facility] Co de Phone Number [facility] [place] [address] * (ABNORMAL) aPTT (12/03/2023 1:42 PM BOIL OFF WORKER) [facility] aPTT 84(H) 28 - 38 sec [facility] Comment: Interpretive Data Heparin therapeutic range: 66.0 - 100.0 seconds. Range based on correlation with therapeutic heparin activity range of 0.3 - 0.7 Units/mL. Current interpretive data was last revised on 2023. Blood 12/03/2023 1:42 PM BOIL OFF WORKER 12/03/2023 1:49 PM BOIL OFF WORKER Nicolas Dobbs MD LAB BLOOD ORDERABLE S Final Result Performing Organization Address [facility] [place] [address] * POCT glucose (12/03/2023 11:21 AM BOIL OFF WORKER) Glucose, POC 112 70 - 199 mg/dL [facility] Blood 12/03/2023 11:2 1 AM BOIL OFF WORKER 12/03/2023 11:21 AM BOIL OFF WORKER Nicolas Dobbs MD LAB POCT ORDERABLES - DEVICE Final Result Performing Organization Address [facility] [place] [address] * POCT glucose (12/03/2023 7:36 AM BOIL OFF WORKER) Glucose, POC 130 70 - 199 mg/dL [facility] Blood 12/03/2023 7:36 AM BOIL OFF WORKER 12/03/2023 7:36 AM BOIL OFF WORKER Nicolas Dobbs MD LAB POCT ORDERABLES - DEVICE Final Result Performing Organization Address [facility] de Phone Number [facility] [place] [address] * (ABNORMAL) aPTT (12/03/2023 5:38 AM BOIL OFF WORKER) [facility] aPTT 84(H) 28 - 38 sec [facility] Comment: Interpretive Data Heparin therapeutic range: 66.0 - 100.0 seconds. Range based on correlation with therapeutic heparin activity range of 0.3 - 0.7 Units/mL. Current interpretive data was last revised on 2023. Blood 12/03/2023 5:38 AM BOIL OFF WORKER 12/03/2023 6:30 AM BOIL OFF WORKER Narrative [facility] - 12/03/2023 6:52 AM BOIL OFF WORKER Draw STAT PTT 6 hrs after initiation of heparin infusion, draw STAT PTT 6 hours after each dose change, and every 6 hours until 2 consecutive PTTs are within therapeutic range. Once two consecutive PTT's are therapeutic (66-100 seconds), then draw PTT every AM until heparin is discontinued. Vibha Ramirez MD LAB BLOOD ORDERABLES Fide l Result Performing Organization Address [facility] de Phone Number [facility] [place] [address] * eGFR (12/02/2023 10:07 PM BOIL OFF WORKER) [facility] eGFR 90 >=60 mL/min/1. 73 m2 [facility] Comment: Interpretive Data Reference Interval [...] interpretive data was last reviewed 2021. Blood 12/02/2023 10:0 7 PM BOIL OFF WORKER 12/02/2023 10:54 PM BOIL OFF WORKER us Nicolas Dobbs MD LAB BLOOD ORDERABLE S Final Result [facility] Department [place] [address] * Differential, auto (12/02/2023 10:07 PM BOIL OFF WORKER) Neutrophil abs 3.3 1.5 - 6.5 K/cumm [facility] Imm gran abs 0.1 0.0 - 0.1 K/cumm [facility] Lymphocyte abs 1.0 0.8 - 3.3 K/cumm [facility] Monocyte abs 0.4 0.2 - 0.8 K/cumm [facility] Eosinophil abs 0.3 0.0 - 0.5 K/cumm [facility] Basophil abs 0.0 0.0 - 0.1 K/cumm [facility] Neutrophil pct 64.5 % [facility] Comment: Interpretive Data Percent cell count reference ranges are not reported, since discordance with absolute values may lead to misinterpretation of CBC data. Current Interpretive Data was last revised on 2018. Imm gran pct 1.5 % [facility] Comment: Interpretive Data Percent cell count reference ranges are not reported, since discordance with absolute values may lead to misinterpretation of CBC data. Current Interpretive Data was last revised on 2018. Lymphocyte pct 20.1 % [facility] Comment: Interpretive Data Percent cell count reference ranges are not reported, since discordance with absolute values may lead to misinterpretation of CBC data. Current Interpretive Data was last revised on 2018. Monocyte pct 7.5 % [facility] Comment: Interpretive Data Percent cell count reference ranges are not reported, since discordance with absolute values may lead to misinterpretation of CBC data. Current Interpretive Data was last revised on 2018. Eosinophil pct 6.2 % [facility] Comment: Interpretive Data Percent cell count reference ranges are not reported, since discordance with absolute values may lead to misinterpretation of CBC data. Current Interpretive Data was last revised on 2018. Basophil pct 0.2 % [facility] Comment: Interpretive Data Percent cell count reference ranges are not reported, since discordance with absolute values may lead to misinterpretation of CBC data. Current Interpretive Data was last revised on 2018. Blood 12/02/2023 10:0 7 PM BOIL OFF WORKER 12/02/2023 10:54 PM BOIL OFF WORKER us Nicolas Dobbs MD LAB BLOOD ORDERABLE S Final Result [facility] Department [place] [address] * (ABNORMAL) aPTT (12/02/2023 10:07 PM BOIL OFF WORKER) aPTT 59(H) 28 - 38 sec [facility] Comment: Interpretive Data Heparin therapeutic range: 66.0 - 100.0 seconds. Range based on correlation with therapeutic heparin activity range of 0.3 - 0.7 Units/mL. Current interpretive data was last revised on 2023. Blood 12/02/2023 10:0 7 PM BOIL OFF WORKER 12/02/2023 10:48 PM BOIL OFF WORKER Narrative [facility] - 12/02/2023 11:10 PM BOIL OFF WORKER Draw STAT PTT 6 hrs after initiation of heparin infusion, draw STAT PTT 6 hours after each dose change, and every 6 hours until 2 consecutive PTTs are within therapeutic range. Once two consecutive PTT's are therapeutic (66-100 seconds), then draw PTT every AM until heparin is discontinued. Vibha Ramirez MD LAB BLOOD ORDERABLES Fide l Result Performing Organization Address City/[facility]/[place] [address] * Extra slide preparation (12/02/2023 10:07 PM BOIL OFF WORKER) Pathologist [facility] Extra slide prep Test Completed [facility] Blood 12/02/2023 10:0 7 PM BOIL OFF WORKER 12/02/2023 10:54 PM BOIL OFF WORKER Nicolas Dobbs MD LAB BLOOD ORDERABLE S Final Result Performing Organization Address [facility] Co de Phone Number [facility] [place] [address] * Direct antiglobulin test (12/02/2023 10:07 PM BOIL OFF WORKER) Pathologist [facility] Direct Jigna BS Interpretation Negative Blood 12/02/2023 10:0 7 PM BOIL OFF WORKER 12/02/2023 10:53 PM BOIL OFF WORKER Nicolas Dobbs MD LAB BLOOD BANK TEST ORDERABLES Final Result Performing Organization Address City/[facility] [place] [address] * (ABNORMAL) Lactate dehydrogenase (LD) (12/02/2023 10:07 PM BOIL OFF WORKER) Pathologist [facility] Lactate dehydrogenase (LDH) 397(H) 100 - 250 Units/L [facility] Blood 12/02/2023 10:0 7 PM BOIL OFF WORKER 12/02/2023 10:54 PM BOIL OFF WORKER Nicolas Dobbs MD LAB BLOOD ORDERABLE S Final Result Performing Organization Address [facility] Co de Phone Number [facility] [place] [address] * (ABNORMAL) Haptoglobin (12/02/2023 10:07 PM BOIL OFF WORKER) [facility] Haptoglobin <10.0(L) 30.0 - 200.0 mg/dL [facility] Blood 12/02/2023 10:0 7 PM BOIL OFF WORKER 12/02/2023 10:54 PM BOIL OFF WORKER Nicolas Dobbs MD LAB BLOOD ORDERABLE S Final Result Performing Organization Address [facility] Co de Phone Number [facility] [place] [address] * Type and screen (12/02/2023 10:07 PM BOIL OFF WORKER) [facility] ABO Rh O Positive Jigna, indirect Negative [facility] Blood 12/02/2023 10:0 7 PM BOIL OFF WORKER 12/02/2023 10:53 PM BOIL OFF WORKER Narrative [facility] - 12/03/2023 12:01 AM BOIL OFF WORKER Has the patient had Daratumumab or Isatuximab in the past 6 months?->Unknown Nicolas Dobbs MD LAB BLOOD BANK TEST ORDERABLES Final Result Performing Organization Address [facility] [place] [address] * (ABNORMAL) CBC with auto differential (12/02/2023 10:07 PM BOIL OFF WORKER) Pathologist [facility] WBC 5.2 3.8 - 9.9 K/cumm [facility] Hgb 8.5(L) 13.0 - 17.5 g/dL [facility] Hct 25.7(L) 38.9 - 50.3 % [facility] Plt 263 150 - 400 K/cumm [facility] MPV 9.7 9.1 - 12.3 fL [facility] RBC 2.83(L) 4.30 - 5.80 M/cumm [facility] MCV 90.8 81.3 - 96.4 fL [facility] MCH 30.0 27.1 - 33.3 pg [facility] MCHC 33.1 32.3 - 35.7 g/dL [facility] RDW CV 14.9 11.1 - 14.9 % [facility] RDW SD 49.7(H) 35.7 - 48.1 fL [facility] NRBC abs 0.00 0.00 - 0.01 K/cumm [facility] Blood 12/02/2023 10:0 7 PM BOIL OFF WORKER 12/02/2023 10:54 PM BOIL OFF WORKER Nicolas Dobbs MD LAB BLOOD ORDERABLE S Final Result Performing Organization Address City/[facility]/ZIP Co de Phone Number [facility] [place] [address] * Phosphorus (12/02/2023 10:07 PM BOIL OFF WORKER) [facility] Phosphorus, pl 3.4 2.3 - 4.5 mg/dL [facility] Blood 12/02/2023 10:0 7 PM BOIL OFF WORKER 12/02/2023 10:54 PM BOIL OFF WORKER Nicolas Dobbs MD LAB BLOOD ORDERABLE S Final Result Performing Organization Address City/[facility]/ZIP Co de Phone Number [facility] [place] [address] * Magnesium (12/02/2023 10:07 PM BOIL OFF WORKER) [facility] Magnesium 2.1 1.4 - 2.5 mg/dL [facility] Blood 12/02/2023 10:0 7 PM BOIL OFF WORKER 12/02/2023 10:54 PM BOIL OFF WORKER Nicolas Dobbs MD LAB BLOOD ORDERABLE S Final Result Performing Organization Address [facility] Co de Phone Number [facility] [place] [address] * (ABNORMAL) Hepatic function panel (12/02/2023 10:07 PM BOIL OFF WORKER) [facility] Bilirubin, total 0.2 0.1 - 1.2 mg/dL [facility] Bilirubin, direct <0.2 0.1 - 0.3 mg/dL [facility] Protein, pl 5.9(L) 6.5 - 8.5 g/dL [facility] Albumin 2.8(L) 3.5 - 5.0 g/dL [facility] Alk phos 147(H) 40 - 130 Units/L [facility] ALT 44 7 - 55 Units/L [facility] AST 33 10 - 50 Units/L [facility] Blood 12/02/2023 10:0 7 PM BOIL OFF WORKER 12/02/2023 10:54 PM BOIL OFF WORKER Nicolas Dobbs MD LAB BLOOD ORDERABLE S Final Result Performing Organization Address [facility] Co de Phone Number [facility] [place] [address] * (ABNORMAL) Basic metabolic panel (12/02/2023 10:07 PM BOIL OFF WORKER) [facility] Sodium 133(L) 135 - 145 mmol/L [facility] Potassium, pl 4.1 3.3 - 4.9 mmol/L [facility] Chloride 104 97 - 110 mmol/L [facility] CO2 23 22 - 32 mmol/L [facility] Anion gap 6 2 - 15 mmol/L [facility] BUN 22 6 - 25 mg/dL [facility] Creatinine 0.91 0.80 - 1.30 mg/dL [facility] Glucose 102 70 - 199 mg/dL [facility] Comment: Interpretive Data Fasting glucose [...] 2022. Calcium 8.6 8.5 - 10.3 mg/dL [facility] Blood 12/02/2023 10:0 7 PM BOIL OFF WORKER 12/02/2023 10:54 PM BOIL OFF WORKER Nicolas Dobbs MD LAB BLOOD ORDERABLE S Final Result Performing Organization Address [facility] Co de Phone Number [facility] Department [place] [address] * POCT glucose (12/02/2023 9:54 PM BOIL OFF WORKER) [facility] Glucose, POC 110 70 - 199 mg/dL [facility] Blood 12/02/2023 9:54 PM BOIL OFF WORKER 12/02/2023 9:54 PM BOIL OFF WORKER Nicolas Dobbs MD LAB POCT ORDERABLES - DEVICE Final Result Performing Organization Address City/[facility]/ZIP Co de Phone Number [facility] [place] [address] * Transfuse RBC (12/02/2023 6:00 PM BOIL OFF WORKER) Blood Nicolas Dobbs MD BLOOD TRANSFUSION O RDERABLES Final Result Performing Organization Address City/[facility]/[place] [address] * Transfuse RBC: 1 Units (12/02/2023 6:00 PM BOIL OFF WORKER) Blood Nicolas Dobbs MD BLOOD TRANSFUSION O RDERABLES Final Result * POCT glucose (12/02/2023 4:13 PM BOIL OFF WORKER) Glucose, POC 128 70 - 199 mg/dL [facility] Blood 12/02/2023 4:13 PM BOIL OFF WORKER 12/02/2023 4:13 PM BOIL OFF WORKER Nicolas Dobbs MD LAB POCT ORDERABLES - DEVICE Final Result Performing Organization Address [facility] [place] [address] * POCT glucose (12/02/2023 11:56 AM BOIL OFF WORKER) Glucose, POC 129 70 - 199 mg/dL [facility] Blood 12/02/2023 11:5 6 AM BOIL OFF WORKER 12/02/2023 11:56 AM BOIL OFF WORKER Nicolas Dobbs MD LAB POCT ORDERABLES - [place] [address] * Prepare RBC: 1 Units (12/02/2023 11:12 AM BOIL OFF WORKER) Product code [id number] Unit Number [id number] [facility] Product Blood Type OPOS [facility] Dispense Status PRESUMED TRANSFUSED [facility] Blood 12/02/2023 11:1 2 AM BOIL OFF WORKER 12/02/2023 11:11 AM BOIL OFF WORKER Narrative [facility] - 12/03/2023 12:45 AM BOIL OFF WORKER Are special requirements needed? (All products are leukoreduced and CMV- safe)- >No [facility]12[id number] Reasons:-Active bleeding, Hgb <8 g/dL} Nicolas Dobbs MD BLOOD BANK PRODUCT ORDERABLES Final Result Performing Organization Address [facility] Co de Phone Number [facility] [place] [address] * POCT glucose (12/02/2023 7:28 AM BOIL OFF WORKER) Glucose, POC 113 70 - 199 mg/dL [facility] Blood 12/02/2023 7:28 AM BOIL OFF WORKER 12/02/2023 7:28 AM BOIL OFF WORKER Nicolas Dobbs MD LAB POCT ORDERABLES - DEVICE Final Result Performing Organization Address [facility] de Phone Number [facility] [place] [address] * (ABNORMAL) aPTT (12/02/2023 7:01 AM BOIL OFF WORKER) aPTT 77(H) 28 - 38 sec [facility] Comment: Interpretive Data Heparin therapeutic range: 66.0 - 100.0 seconds. Range based on correlation with therapeutic heparin activity range of 0.3 - 0.7 Units/mL. Current interpretive data was last revised on 2023. Blood 12/02/2023 7:01 AM BOIL OFF WORKER 12/02/2023 7:56 AM BOIL OFF WORKER Narrative [facility] - 12/02/2023 8:09 AM BOIL OFF WORKER Draw STAT PTT 6 hrs after initiation of heparin infusion, draw STAT PTT 6 hours after each dose change, and every 6 hours until 2 consecutive PTTs are within therapeutic range. Once two consecutive PTT's are therapeutic (66-100 seconds), then draw PTT every AM until heparin is discontinued. Vibha Ramirez MD LAB BLOOD ORDERABLES Fide l Result Performing Organization Address [facility]/ZIP Co de Phone Number [facility] Department [place] [address] * eGFR (12/02/2023 1:15 AM BOIL OFF WORKER) eGFR 80 >=60 mL/min/1. 73 m2 [facility] Comment: Interpretive Data Reference Interval [...] interpretive data was last reviewed 2021. Blood 12/02/2023 1:15 AM BOIL OFF WORKER 12/02/2023 1:46 AM BOIL OFF WORKER us Nicolas Dobbs MD LAB BLOOD ORDERABLE S Final Result Performing Organization Address [facility]/ZIP Co de Phone Number [facility] Department [place] [address] * Differential, auto (12/02/2023 1:15 AM BOIL OFF WORKER) Pathologist [facility] Neutrophil abs 3.1 1.5 - 6.5 K/cumm [facility] Imm gran abs 0.1 0.0 - 0.1 K/cumm [facility] Lymphocyte abs 1.3 0.8 - 3.3 K/cumm [facility] Monocyte abs 0.3 0.2 - 0.8 K/cumm [facility] Eosinophil abs 0.4 0.0 - 0.5 K/cumm [facility] Basophil abs 0.0 0.0 - 0.1 K/cumm [facility] Neutrophil pct 60.1 % [facility] Comment: Interpretive Data Percent cell count reference ranges are not reported, since discordance with absolute values may lead to misinterpretation of CBC data. Current Interpretive Data was last revised on 2018. Imm gran pct 1.2 % [facility] Comment: Interpretive Data Percent cell count reference ranges are not reported, since discordance with absolute values may lead to misinterpretation of CBC data. Current Interpretive Data was last revised on 2018. Lymphocyte pct 24.2 % [facility] Comment: Interpretive Data Percent cell count reference ranges are not reported, since discordance with absolute values may lead to misinterpretation of CBC data. Current Interpretive Data was last revised on 2018. Monocyte pct 6.4 % [facility] Comment: Interpretive Data Percent cell count reference ranges are not reported, since discordance with absolute values may lead to misinterpretation of CBC data. Current Interpretive Data was last revised on 2018. Eosinophil pct 7.9 % [facility] Comment: Interpretive Data Percent cell count reference ranges are not reported, since discordance with absolute values may lead to misinterpretation of CBC data. Current Interpretive Data was last revised on 2018. Basophil pct 0.2 % [facility] Comment: Interpretive Data Percent cell count reference ranges are not reported, since discordance with absolute values may lead to misinterpretation of CBC data. Current Interpretive Data was last revised on 2018. Blood 12/02/2023 1:15 AM BOIL OFF WORKER 12/02/2023 1:46 AM BOIL OFF WORKER Nicolas Dobbs MD LAB BLOOD ORDERABLE S Final Result Performing Organization Address [facility] Co de Phone Number [facility] [place] [address] * (ABNORMAL) aPTT (12/02/2023 1:15 AM BOIL OFF WORKER) [facility] aPTT 66(H) 28 - 38 sec [facility] Comment: Interpretive Data Heparin therapeutic range: 66.0 - 100.0 seconds. Range based on correlation with therapeutic heparin activity range of 0.3 - 0.7 Units/mL. Current interpretive data was last revised on 2023. Blood 12/02/2023 1:15 AM BOIL OFF WORKER 12/02/2023 1:48 AM BOIL OFF WORKER Narrative [facility] - 12/02/2023 2:18 AM BOIL OFF WORKER Draw STAT PTT 6 hrs after initiation of heparin infusion, draw STAT PTT 6 hours after each dose change, and every 6 hours until 2 consecutive PTTs are within therapeutic range. Once two consecutive PTT's are therapeutic (66-100 seconds), then draw PTT every AM until heparin is discontinued. Vibha Ramirez MD LAB BLOOD ORDERABLES Fide l Result Performing Organization Address [facility] de Phone Number [facility] Department [place] [address] * (ABNORMAL) CBC with auto differential (12/02/2023 1:15 AM BOIL OFF WORKER) [facility] WBC 5.2 3.8 - 9.9 K/cumm [facility] Hgb 7.1(L) 13.0 - 17.5 g/dL [facility] Hct 22.1(L) 38.9 - 50.3 % [facility] Plt 261 150 - 400 K/cumm [facility] MPV 10.2 9.1 - 12.3 fL [facility] RBC 2.33(L) 4.30 - 5.80 M/cumm [facility] MCV 94.8 81.3 - 96.4 fL [facility] MCH 30.5 27.1 - 33.3 pg [facility] MCHC 32.1(L) 32.3 - 35.7 g/dL [facility] RDW CV 15.2(H) 11.1 - 14.9 % [facility] RDW SD 52.8(H) 35.7 - 48.1 fL [facility] NRBC abs 0.00 0.00 - 0.01 K/cumm [facility] Blood 12/02/2023 1:15 AM BOIL OFF WORKER 12/02/2023 1:46 AM BOIL OFF WORKER Nicolas Dobbs MD LAB BLOOD ORDERABLE S Final Result Performing Organization Address City/[facility]/ZIP Co de Phone Number [facility] [place] [address] * Phosphorus (12/02/2023 1:15 AM BOIL OFF WORKER) Phosphorus, pl 4.0 2.3 - 4.5 mg/dL [facility] Blood 12/02/2023 1:15 AM BOIL OFF WORKER 12/02/2023 1:46 AM BOIL OFF WORKER Nicolas Dobbs MD LAB BLOOD ORDERABLE S Final Result Performing Organization Address City/[facility] Co de Phone Number [facility] [place] [address] * Magnesium (12/02/2023 1:15 AM BOIL OFF WORKER) Magnesium 2.2 1.4 - 2.5 mg/dL [facility] Blood 12/02/2023 1:15 AM BOIL OFF WORKER 12/02/2023 1:46 AM BOIL OFF WORKER Nicolas Dobbs MD LAB BLOOD ORDERABLE S Final Result [facility] [place] [address] * (ABNORMAL) Hepatic function panel (12/02/2023 1:15 AM BOIL OFF WORKER) Pathologist [facility] Bilirubin, total 0.2 0.1 - 1.2 mg/dL [facility] Bilirubin, direct <0.2 0.1 - 0.3 mg/dL [facility] Protein, pl 5.9(L) 6.5 - 8.5 g/dL [facility] Albumin 2.8(L) 3.5 - 5.0 g/dL [facility] Alk phos 129 40 - 130 Units/L [facility] ALT 50 7 - 55 Units/L [facility] AST 32 10 - 50 Units/L [facility] Blood 12/02/2023 1:15 AM BOIL OFF WORKER 12/02/2023 1:46 AM BOIL OFF WORKER Nicolas Dobbs MD LAB BLOOD ORDERABLE S Final Result [facility] Department [place] [address] * Basic metabolic panel (12/02/2023 1:15 AM BOIL OFF WORKER) Pathologist [facility] Sodium 135 135 - 145 mmol/L [facility] Potassium, pl 4.3 3.3 - 4.9 mmol/L [facility] Chloride 103 97 - 110 mmol/L [facility] CO2 25 22 - 32 mmol/L [facility] Anion gap 7 2 - 15 mmol/L [facility] BUN 24 6 - 25 mg/dL [facility] Creatinine 1.00 0.80 - 1.30 mg/dL [facility] Glucose 94 70 - 199 mg/dL [facility] Comment: Interpretive Data Fasting glucose [...] interpretive data was last revised 2022. Calcium 8.8 8.5 - 10.3 mg/dL [facility] Blood 12/02/2023 1:15 AM BOIL OFF WORKER 12/02/2023 1:46 AM BOIL OFF WORKER Nicolas Dobbs MD LAB BLOOD ORDERABLE S Final Result Performing Organization Address City/[facility] Co de Phone Number [facility] [place] [address] * POCT glucose (12/01/2023 8:42 PM BOIL OFF WORKER) Glucose, POC 129 70 - 199 mg/dL [facility] Blood 12/01/2023 8:42 PM BOIL OFF WORKER 12/01/2023 8:42 PM BOIL OFF WORKER Nicolas Dobbs MD LAB POCT ORDERABLES - DEVICE Final Result Performing Organization Address [facility] de Phone Number [facility] [place] [address] * (ABNORMAL) aPTT (12/01/2023 6:00 PM BOIL OFF WORKER) aPTT 63(H) 28 - 38 sec [facility] Comment: Interpretive Data Heparin therapeutic range: 66.0 - 100.0 seconds. Range based on correlation with therapeutic heparin activity range of 0.3 - 0.7 Units/mL. Current interpretive data was last revised on 2023. Blood 12/01/2023 6:00 PM BOIL OFF WORKER 12/01/2023 6:28 PM BOIL OFF WORKER Nicolas Dobbs MD LAB BLOOD ORDERABLE S Final Result Performing Organization Address [facility] Co de Phone Number [facility] [place] [address] * POCT glucose (12/01/2023 5:09 PM BOIL OFF WORKER) [facility] Glucose, POC 118 70 - 199 mg/dL [facility] Blood 12/01/2023 5:09 PM BOIL OFF WORKER 12/01/2023 5:09 PM BOIL OFF WORKER Nicolas Dobbs MD LAB POCT ORDERABLES - DEVICE Final Result Performing Organization Address City/[facility]/ZIP Co de Phone Number [facility] Department [place] [address] * (ABNORMAL) CBC without differential (12/01/2023 12:35 PM BOIL OFF WORKER) [facility] WBC 5.9 3.8 - 9.9 K/cumm [facility] Hgb 7.6(L) 13.0 - 17.5 g/dL [facility] Hct 23.4(L) 38.9 - 50.3 % [facility] Plt 219 150 - 400 K/cumm [facility] MPV 10.3 9.1 - 12.3 fL [facility] RBC 2.53(L) 4.30 - 5.80 M/cumm [facility] MCV 92.5 81.3 - 96.4 fL [facility] MCH 30.0 27.1 - 33.3 pg [facility] MCHC 32.5 32.3 - 35.7 g/dL [facility] RDW CV 15.1(H) 11.1 - 14.9 % [facility] RDW SD 51.3(H) 35.7 - 48.1 fL [facility] NRBC abs 0.00 0.00 - 0.01 K/cumm [facility] Blood 12/01/2023 12:3 5 PM BOIL OFF WORKER 12/01/2023 12:40 PM BOIL OFF WORKER Nicolas Dobbs MD LAB BLOOD ORDERABLE S Final Result [facility] Department [place] [address] * POCT glucose (12/01/2023 12:23 PM BOIL OFF WORKER) Glucose, POC 118 70 - 199 mg/dL [facility] Blood 12/01/2023 12:2 3 PM BOIL OFF WORKER 12/01/2023 12:23 PM BOIL OFF WORKER Nicolas Dobbs MD LAB POCT ORDERABLES - DEVICE Final Result Performing Organization Address [facility] [place] [address] * (ABNORMAL) POCT glucose (12/01/2023 12:21 PM BOIL OFF WORKER) Glucose, POC 283(H) 70 - 199 mg/dL [facility] Blood 12/01/2023 12:2 1 PM BOIL OFF WORKER 12/01/2023 12:21 PM BOIL OFF WORKER Nicolas Dobbs MD LAB POCT ORDERABLES - DEVICE Final Result Performing Organization Address [facility] [place] [address] * (ABNORMAL) aPTT (12/01/2023 12:15 PM BOIL OFF WORKER) aPTT 39(H) 28 - 38 sec [facility] Comment: Interpretive Data Heparin therapeutic range: 66.0 - 100.0 seconds. Range based on correlation with therapeutic heparin activity range of 0.3 - 0.7 Units/mL. Current interpretive data was last revised on 2023. Blood 12/01/2023 12:1 5 PM BOIL OFF WORKER 12/01/2023 12:47 PM BOIL OFF WORKER Nicolas Dobbs MD LAB BLOOD ORDERABLE S Final Result Performing Organization Address [facility] de Phone Number [facility] [place] [address] * eGFR (12/01/2023 8:00 AM BOIL OFF WORKER) Pathologist [facility] eGFR >90 >=60 mL/min/1. 73 m2 [facility] [...] interpretive data was last reviewed 2021. Blood 12/01/2023 8:00 AM BOIL OFF WORKER 12/01/2023 12:48 PM BOIL OFF WORKER us Nicolas Dobbs MD LAB BLOOD ORDERABLE S Final Result [facility] Department [place] [address] * (ABNORMAL) Comprehensive metabolic panel (12/01/2023 8:00 AM BOIL OFF WORKER) Pathologist [facility] Sodium 134(L) 135 - 145 mmol/L [facility] Potassium, pl 4.4 3.3 - 4.9 mmol/L [facility] Chloride 104 97 - 110 mmol/L [facility] CO2 22 22 - 32 mmol/L [facility] Anion gap 8 2 - 15 mmol/L [facility] BUN 23 6 - 25 mg/dL [facility] Creatinine 0.86 0.80 - 1.30 mg/dL [facility] Glucose 91 70 - 199 mg/dL [facility] Comment: Interpretive Data Fasting glucose [...] interpretive data was last revised 2022. Calcium 8.1(L) 8.5 - 10.3 mg/dL [facility] Bilirubin, total 0.3 0.1 - 1.2 mg/dL [facility] Protein, pl 5.7(L) 6.5 - 8.5 g/dL [facility] Albumin 2.7(L) 3.5 - 5.0 g/dL [facility] Alk phos 123 40 - 130 Units/L [facility] ALT 55 7 - 55 Units/L [facility] AST 37 10 - 50 Units/L [facility] Blood 12/01/2023 8:00 AM BOIL OFF WORKER 12/01/2023 12:48 PM BOIL OFF WORKER us Nicolas Dobbs MD LAB BLOOD ORDERABLE S Final Result [facility] Department [place] [address] * POCT glucose (12/01/2023 7:14 AM BOIL OFF WORKER) [facility] Glucose, POC 116 70 - 199 mg/dL [facility] Blood 12/01/2023 7:14 AM BOIL OFF WORKER 12/01/2023 7:14 AM BOIL OFF WORKER Nicolas Dobbs MD LAB POCT ORDERABLES - DEVICE Final Result Performing Organization Address [facility] Co de Phone Number [facility] [place] [address] * (ABNORMAL) aPTT (12/01/2023 4:40 AM BOIL OFF WORKER) aPTT 43(H) 28 - 38 sec [facility] Comment: Interpretive Data Heparin therapeutic range: 66.0 - 100.0 seconds. Range based on correlation with therapeutic heparin activity range of 0.3 - 0.7 Units/mL. Current interpretive data was last revised on 2023. Blood 12/01/2023 4:40 AM BOIL OFF WORKER 12/01/2023 5:42 AM BOIL OFF WORKER Narrative [facility] - 12/01/2023 5:55 AM BOIL OFF WORKER Draw STAT PTT 6 hrs after initiation of heparin infusion, draw STAT PTT 6 hours after each dose change, and every 6 hours until 2 consecutive PTTs are within therapeutic range. Once two consecutive PTT's are therapeutic (66-100 seconds), then draw PTT every AM until heparin is discontinued. Vibha Ramirez MD LAB BLOOD ORDERABLES Fide l Result Performing Organization Address [facility] Co de Phone Number [facility] Department [place] [address] * POCT glucose (11/30/2023 8:46 PM BOIL OFF WORKER) Glucose, POC 122 70 - 199 mg/dL [facility] Blood 11/30/2023 8:46 PM BOIL OFF WORKER 11/30/2023 8:46 PM BOIL OFF WORKER Vibha Ramirez MD LAB POCT ORDERABLES - DEV ICE Final Result Performing Organization Address [facility] [place] [address] * aPTT (11/30/2023 8:44 PM BOIL OFF WORKER) [facility] aPTT 28 28 - 38 sec [facility] Comment: Interpretive Data Heparin therapeutic range: 66.0 - 100.0 seconds. Range based on correlation with therapeutic heparin activity range of 0.3 - 0.7 Units/mL. Current interpretive data was last revised on 2023. Blood 11/30/2023 8:44 PM BOIL OFF WORKER 11/30/2023 9:32 PM BOIL OFF WORKER Narrative [facility] - 11/30/2023 9:41 PM BOIL OFF WORKER Draw STAT PTT 6 hrs after initiation of heparin infusion, draw STAT PTT 6 hours after each dose change, and every 6 hours until 2 consecutive PTTs are within therapeutic range. Once two consecutive PTT's are therapeutic (66-100 seconds), then draw PTT every AM until heparin is discontinued. Vibha Ramirez MD LAB BLOOD ORDERABLES Fide l Result Performing Organization Address [facility] [place] [address] * POCT glucose (11/30/2023 4:22 PM BOIL OFF WORKER) [facility] Glucose, POC 138 70 - 199 mg/dL [facility] Blood 11/30/2023 4:22 PM BOIL OFF WORKER 11/30/2023 4:22 PM BOIL OFF WORKER Vibha Ramirez MD LAB POCT ORDERABLES - DEV ICE Final Result Performing Organization Address [facility] [place] [address] * Urine culture Urine, clean voided (11/30/2023 2:48 PM BOIL OFF WORKER) [facility] Report Final Report: Less than 100,000 colonies/mL (clinically insignificant growth based on current clinical standards) [facility] Organism (CLINICALLY INSIGNIFICANT GROWTH [facility] Urine, clean voided 11/30/2023 2:48 PM BOIL OFF WORKER 11/30/2023 8:09 PM BOIL OFF WORKER Narrative [facility] - 12/01/2023 10:25 PM BOIL OFF WORKER Urine culture reflexed based upon urinalysis results. Testing performed by [facility] Microbiology Laboratory ([phone]) Vibha Ramirez MD LAB MICROBIOLOGY - GENERA L ORDERABLES Final Result Performing Organization Address [facility] Co de Phone Number [facility] [place] [address] * (ABNORMAL) Urinalysis, microscopic only (11/30/2023 2:48 PM BOIL OFF WORKER) WBC, ur >50(A) 0 - 5 /HPF [facility] RBC, ur 21-50(A) 0 - 2 /HPF [facility] Epithelial cells, squamous, ur 11-20(A) 0 - 5 /HPF [facility] Comment:Suggestive of contam ination. Consider recollection by clean catch. Bacteria, ur 1+(A) [facility] Yeast, ur 1+(A) [facility] Mucous, ur Present(A) [facility] Culture Reflex Comment Reflex to urine culture will be performed. [facility] Urine, clean voided 11/30/2023 2:48 PM BOIL OFF WORKER 11/30/2023 3:16 PM BOIL OFF WORKER Vibha Ramirez MD LAB URINE ORDERABLES Fide l Result Performing Organization Address [facility] Co de Phone Number [facility] Department [place] [address] * (ABNORMAL) Urinalysis reflex to microscopic and culture Urine, clean voided (11/30/2023 2:48 PM BOIL OFF WORKER) Color, ur Yellow Yellow [facility] Clarity, ur Cloudy(A) Clear [facility] Specific gravity, ur 1.029 1.003 - 1.030 [facility] pH, urine 6.5 [facility] Comment: Interpretive Data ? Urine pH is affected by diet, medications, systemic acid-base disturbances, and renal tubular function. ??pH may affect urinary stone formation. ??For example, urine pH below 6.0 may help reduce the tendency for calcium phosphate stones and pH greater than 6.0 may reduce the tendency for uric acid stone formation. Source: [facility] Current Interpretive Data was last revised on 2017 Protein, ur ql 1+(A) Negative [facility] Glucose, ur ql Negative Negative [facility] Ketones, ur Negative Negative [facility] Bilirubin, ur Negative Negative [facility] Blood, ur 1+(A) Negative [facility] Urobilinogen, ur <2.0 <2.0 mg/dL [facility] Nitrite, ur Negative Negative [facility] Leukocyte esterase, ur 3+(A) Negative [facility] UA reflex comment Reflex to microscopic UA will be performed. [facility] Urine, clean voided 11/30/2023 2:48 PM BOIL OFF WORKER 11/30/2023 3:16 PM BOIL OFF WORKER Vibha Ramirez MD LAB MICROBIOLOGY - GENERA L ORDERABLES Final Result Performing Organization Address [facility] Co de Phone Number [facility] [place] [address] * POCT glucose (11/30/2023 11:59 AM BOIL OFF WORKER) Glucose, POC 115 70 - 199 mg/dL [facility] Blood 11/30/2023 11:5 9 AM BOIL OFF WORKER 11/30/2023 11:59 AM BOIL OFF WORKER Vibha Ramirez MD LAB POCT ORDERABLES - DEV ICE Final Result Performing Organization Address [facility] Co de Phone Number [facility] Department [place] [address] * aPTT (11/30/2023 11:16 AM BOIL OFF WORKER) aPTT 28 28 - 38 sec [facility] Comment: Interpretive Data Heparin therapeutic range: 66.0 - 100.0 seconds. Range based on correlation with therapeutic heparin activity range of 0.3 - 0.7 Units/mL. Current interpretive data was last revised on 2023. Blood 11/30/2023 11:1 6 AM BOIL OFF WORKER 11/30/2023 12:30 PM BOIL OFF WORKER Narrative [facility] - 11/30/2023 12:57 PM BOIL OFF WORKER Baseline prior to heparin initiation us Vibha Ramirez MD LAB BLOOD ORDERABLES Fide rick Result [facility] Department of Laboratories [place], [place] [id number] * US Vein Duplex Lower Extremity Bilateral Complete (11/30/2023 8:03 AM BOIL OFF WORKER) Anatomical Region Laterality Modality Vascular Bilateral Ultrasound 11/30/2023 7:23 AM BOIL OFF WORKER Narrative 12/01/2023 11:25 PM BOIL OFF WORKER [facility] - Department of Vascular Surgery, Vascular Laboratory [address] [place] [id number] Lower Extremity Venous Ultrasound Report Patient Name: HIRA EVANS WILLIAM : 1950 (73y 5m) Study Date: 11/30/2023 7:23:48 AM Gender: M Tech: Location: [id number] Ref Provider: ERROL ESCOBAR ?Quality: Adequate Order Provider: ERROL ESCOBAR PROCEDURES: Vascular Report: Venous Duplex imaging was performed bilaterally in the lower extremities. The common femoral, femoral, popliteal, posterior tibial, peroneal veins were evaluated for patency, spontaneity and phasicity with Doppler, compression and augmentation maneuvers. Great saphenous vein proximal at the junction was evaluated with compression maneuvers. INDICATIONS: Swelling lower extremity, bilateral. FINDINGS: Performing Dust Mixer: Josiane Chance RVT. Right: Duplex scan reveals dilated vein with [...] Unable to visualize the bilateral iliac veins. Provider Notification: Results called on the above date to Vibha Ramirez MD. Time called 08:00. CONCLUSIONS: 1. There is acute deep vein thrombosis in the bilateral lower extremities involving vein(s) as noted above. HISTORY: HTN, DVT, PE, Cancer, IVC filter, former smoker. PREVIOUS STUDIES: Previous study performed on 11/08/23 negative. DISCLAIMER: The study images and the [...] that is provided above. Electronically Signed By: Shayan Jameson MD FACS 2023-12-01 23:25:38 BOIL OFF WORKER Procedure Note Shayan Jameson MD - 12/01/2023 [employer] - Department of Vascular Surgery,Vascular Laboratory [address] [place] [address] Lower Extremity Venous Ultrasound Report Patient Name: HIRA EVANS WILLIAM : 1950 (73y 5m) Study Date: 11/30/2023 7:23:48 AM Gender: M Tech: Location: [id number] Ref Provider: ERROL ESCOBAR Quality: Adequate Order Provider: ERROL ESCOBAR PROCEDURES: Vascular Report: Venous Duplex imaging was performed bilaterally in the lower extremities.The common femoral, femoral, popliteal, posterior tibial, peroneal veins wereevaluated for patency, spontaneity and phasicity with Doppler, compression and augmentationmaneuvers. Great saphenous vein proximal at the junction was evaluated with compressionmaneuvers. INDICATIONS: Swelling lower extremity, bilateral. FINDINGS: Performing Dust Mixer: Josiane Chance RVT. Right: Duplex scan reveals dilated vein with echogenic, intraluminal,non-compressible material consistent with acute deep vein thrombosis in the right lower extremity.Deep veins involved include the right common femoral vein, profunda femoral vein,femoral vein, popliteal vein, posterior tibial veins and peroneal veins. Left: Duplex scan reveals dilated vein with echogenic, intraluminal,non-compressible material consistent with acute deep vein thrombosis in the left lower extremity.Deep veins involved include the common femoral vein, profunda femoral vein, femoralvein, popliteal vein, posterior tibial veins and peroneal veins. Comments: Unable to visualize the bilateral iliac veins. Provider Notification: Results called on the above date to Vibha Ramirez MD. Time [id number]. CONCLUSIONS: 1. There is acute deep vein thrombosis in the bilateral lower extremitiesinvolving vein(s) as noted above. HISTORY: HTN, DVT, PE, Cancer, IVC filter, former smoker. PREVIOUS STUDIES: Previous study performed on 11/08/23 negative. DISCLAIMER: The study images and the final report will be retained in the patientchart by the Vascular Laboratory for the legally required time period. This chartconstitutes the legal record of any testing performed. ATTESTATION: I have reviewed and interpreted the pertinent images and measurements ofthis study. I attest to the conclusions in the final report that is provided above. Electronically Signed By: Shayan Jameson MD FACS 2023-12-01 23:25:38 BOIL OFF WORKER Errol Escobar MD [facility] [place]EDURES Final R esult * POCT glucose (11/30/2023 7:51 AM BOIL OFF WORKER) [facility] Glucose, POC 126 70 - 199 mg/dL [facility] Blood 11/30/2023 7:51 AM BOIL OFF WORKER 11/30/2023 7:51 AM BOIL OFF WORKER Vibha Ramirez MD LAB POCT ORDERABLES - DEV ICE Final Result [facility] Department [place] [address] * CT Abdomen Pelvis W Contrast (11/30/2023 1:49 AM BOIL OFF WORKER) Anatomical Region Laterality Modality Body N/A Computed Tomogra phy 11/30/2023 8:21 AM BOIL OFF WORKER Impressions 11/30/2023 8:21 AM BOIL OFF WORKER 1. Somewhat limited evaluation of the systemic venous clot burden secondary to technique. ??However there appears to be clot that extends inferiorly from the inferior vena cava filter into the iliac vasculature bilaterally and into the common femoral artery and veins bilaterally. ??Comparison to the prior examination is also limited by technique, and the prior examination the portal venous phase was used. ??The common correlation with lower extremity Doppler studies to confirm presence of clot within the common femoral veins. ??No definite involvement of the renal veins bilaterally. 2. Interval decrease in size of a left renal subcapsular fluid collection/hematoma. 3. Diffuse body wall edema appears increased when compared to the prior examination. ??There are large bilateral hydroceles. 4. Postsurgical changes of posterior decompression spinal fusion in the thoracolumbar spine are grossly stable. 5. ??Stable left extrarenal pelvis with suggestion of stable mild hydronephrosis. ??A left ureteral stent is in place. Electronically signed by: Jorge Mayo M.D., Ph.D Narrative 11/30/2023 8:21 AM BOIL OFF WORKER EXAMINATION: ??Computed tomography of the abdomen and pelvis with intravenous contrast HISTORY: Evaluate for deep venous thrombosis. TECHNIQUE: ??Transaxial computed tomographic images of the abdomen and pelvis ??were obtained with intravenous contrast according to the venogram protocol after the uneventful administration of 88 mL Opti-Ray 350 intravenous contrast. COMPARISON: 11/19/2023 FINDINGS: ?? Limited views of the thorax are provided. ??There is slight motion artifact. There is a inferior vena cava filter seen at the level just below the renal veins. ??There is low attenuation associated with the IVC filter that extends inferiorly within the IVC and also appears to extend into the internal and external iliac vasculature bilaterally there is suggestion that they are are filling defects with in bilateral common femoral veins. ??Overall this is suspicious for extensive clot burden. No definite clot is seen within the renal veins. ??Recommend correlation with the findings from ultrasound. ??It is somewhat difficult to evaluate clot burden given the timing of the contrast. Limited views of the thorax are provided. ??No suspicious findings on limited views of the thorax. ??Study slightly limited by motion artifact. ??No suspicious pulmonary nodules or masses. ??Scattered atelectasis is seen. ??No pneumothorax or pleural effusion. ??The heart size is normal. ??Trace pericardial effusion. ??There is diffuse body wall edema. Scattered cysts are seen within the liver. ??No suspicious focal hepatic lesion. ??Gallbladder normal. ??There is suggestion of periportal space widening which can be seen in the setting of hepatic fibrosis. ??The right hemiliver appears somewhat atrophic. ??No bile duct dilation. ??Pancreas normal. ??Spleen normal. Interval decrease in size of the subcapsular fluid in the left kidney. ??There are too small to characterize hypoattenuating lesion seen within the right kidney which are unchanged. ??No suspicious focal renal lesion. ??There is a left-sided ureteral stent which terminates in the extrarenal pelvis on the left in the urinary bladder. ??There is a prominent extrarenal pelvis with unchanged mild hydronephrosis. ??Contrast is seen within the collecting systems in keeping with the timing of the contrast. ??Urinary bladder is decompressed. ??As a Harris catheter in place. ??Prostatectomy changes are noted. The appendix is not readily identified. ??No appendiceal inflammation. No suspicious bowel wall thickening. ??No evidence of bowel obstruction. Limited evaluation the portal venous vasculature given the timing of the contrast. ??The aorta is normal in caliber. ??Scattered vascular calcifications are seen. Trace free fluid is seen within the intraperitoneal cavity. ??There is no free intraperitoneal fluid or gas. ??Large bilateral hydroceles. There is extensive body wall edema, increased since the prior examination, and there is suggestion of collateral vessels in the subcutaneous fat of the anterior abdominal wall. Postsurgical changes of posterior decompression with instrumented spinal fusion are seen within the lumbar spine. ??The appearance is overall similar when compared to the prior examination. Degenerative changes are seen in the spine. ??No suspicious lytic or blastic osseous lesions. Procedure Note Jorge Mayo MD PhD - 11/30/2023 EXAMINATION: Computed tomography of the abdomen and pelvis with intravenous contrast HISTORY: Evaluate for deep venous thrombosis. TECHNIQUE: Transaxial computed tomographic images of the abdomen and pelvis were obtained with intravenous contrast according to the venogram protocol after the uneventful administration of 88 mL Opti-Ray 350 intravenous contrast. COMPARISON: 11/19/2023 FINDINGS: Limited views of the thorax are provided. There is slight motion artifact. There is a inferior vena cava filter seen at the level just below the renal veins. There is low attenuation associated with the IVC filter that extends inferiorly within the IVC and also appears to extend into the internal and external iliac vasculature bilaterally there is suggestion that they are are filling defects with in bilateral common femoral veins. Overall this is suspicious for extensive clot burden. No definite clot is seen within the renal veins. Recommend correlation with the findings from ultrasound. It is somewhat difficult to evaluate clot burden given the timing of the contrast. Limited views of the thorax are provided. No suspicious findings on limited views of the thorax. Study slightly limited by motion artifact. No suspicious pulmonary nodules or masses. Scattered atelectasis is seen. No pneumothorax or pleural effusion. The heart size is normal. Trace pericardial effusion. There is diffuse body wall edema. Scattered cysts are seen within the liver. No suspicious focal hepatic lesion. Gallbladder normal. There is suggestion of periportal space widening which can be seen in the setting of hepatic fibrosis. The right hemiliver appears somewhat atrophic. No bile duct dilation. Pancreas normal. Spleen normal. Interval decrease in size of the subcapsular fluid in the left kidney. There are too small to characterize hypoattenuating lesion seen within the right kidney which are unchanged. No suspicious focal renal lesion. There is a left-sided ureteral stent which terminates in the extrarenal pelvis on the left in the urinary bladder. There is a prominent extrarenal pelvis with unchanged mild hydronephrosis. Contrast is seen within the collecting systems in keeping with the timing of the contrast. Urinary bladder is decompressed. As a Harris catheter in place. Prostatectomy changes are noted. The appendix is not readily identified. No appendiceal inflammation. No suspicious bowel wall thickening. No evidence of bowel obstruction. Limited evaluation the portal venous vasculature given the timing of the contrast. The aorta is normal in caliber. Scattered vascular calcifications are seen. Trace free fluid is seen within the intraperitoneal cavity. There is no free intraperitoneal fluid or gas. Large bilateral hydroceles. There is extensive body wall edema, increased since the prior examination, and there is suggestion of collateral vessels in the subcutaneous fat of the anterior abdominal wall. Postsurgical changes of posterior decompression with instrumented spinal fusion are seen within the lumbar spine. The appearance is overall similar when compared to the prior examination. Degenerative changes are seen in the spine. No suspicious lytic or blastic osseous lesions. IMPRESSION: 1. Somewhat limited evaluation of the systemic [...] A left ureteral stent is in place. Electronically signed by: Jorge Mayo M.D., Ph.D Errol Escobar MD IMG CT PROCEDURES Final R esult * eGFR (11/30/2023 12:12 AM BOIL OFF WORKER) eGFR >90 >=60 mL/min/1. 73 m2 [...] interpretive data was last reviewed 2021. Blood 11/30/2023 12:1 2 AM BOIL OFF WORKER 11/30/2023 1:25 AM BOIL OFF WORKER us Errol Escobar MD LAB BLOOD ORDERABLES Fide rick Result [facility] Department [place] [address] * Differential, auto (11/30/2023 12:12 AM BOIL OFF WORKER) Pathologist [facility] Neutrophil abs 4.3 1.5 - 6.5 K/cumm [facility] Imm gran abs 0.1 0.0 - 0.1 K/cumm [facility] Lymphocyte abs 1.1 0.8 - 3.3 K/cumm [facility] Monocyte abs 0.4 0.2 - 0.8 K/cumm [facility] Eosinophil abs 0.3 0.0 - 0.5 K/cumm [facility] Basophil abs 0.0 0.0 - 0.1 K/cumm [facility] Neutrophil pct 69.7 % [facility] Comment: Interpretive Data Percent cell count reference ranges are not reported, since discordance with absolute values may lead to misinterpretation of CBC data. Current Interpretive Data was last revised on 2018. Imm gran pct 1.0 % [facility] Comment: Interpretive Data Percent cell count reference ranges are not reported, since discordance with absolute values may lead to misinterpretation of CBC data. Current Interpretive Data was last revised on 2018. Lymphocyte pct 17.1 % [facility] Comment: Interpretive Data Percent cell count reference ranges are not reported, since discordance with absolute values may lead to misinterpretation of CBC data. Current Interpretive Data was last revised on 2018. Monocyte pct 6.8 % [facility] Comment: Interpretive Data Percent cell count reference ranges are not reported, since discordance with absolute values may lead to misinterpretation of CBC data. Current Interpretive Data was last revised on 2018. Eosinophil pct 5.2 % [facility] Comment: Interpretive Data Percent cell count reference ranges are not reported, since discordance with absolute values may lead to misinterpretation of CBC data. Current Interpretive Data was last revised on 2018. Basophil pct 0.2 % [facility] Comment: Interpretive Data Percent cell count reference ranges are not reported, since discordance with absolute values may lead to misinterpretation of CBC data. Current Interpretive Data was last revised on 2018. Blood 11/30/2023 12:1 2 AM BOIL OFF WORKER 11/30/2023 1:19 AM BOIL OFF WORKER Errol Escobar MD LAB BLOOD ORDERABLES Fide l Result Performing Organization Address [facility] Co de Phone Number [facility] Department [place] [address] * Osmolality, blood (11/30/2023 12:12 AM BOIL OFF WORKER) Osmo 295 275 - 300 mOsm/kg [facility] Blood 11/30/2023 12:1 2 AM BOIL OFF WORKER 11/30/2023 1:25 AM BOIL OFF WORKER Errol Escobar MD LAB BLOOD ORDERABLES Fide l Result Performing Organization Address [facility] Co de Phone Number [facility] [place] [address] * Protime-INR (11/30/2023 12:12 AM BOIL OFF WORKER) [facility] PT 11.8 10.3 - 13.7 sec [facility] INR 1.04 0.90 - 1.20 [facility] Comment: Interpretive data Oral anticoagulant therapeutic ranges: Venous thromboembolism prophylaxis or treatment: 2.0-3.0 CARDIOLOGY Standard range: 2.0-3.0 High-intensity range: 2.5-3.5 Refer to indication-specific guidelines for appropriate target ranges for prosthetic heart valve replacement. Current interpretive data was last revised on 2019. Blood 11/30/2023 12:1 2 AM BOIL OFF WORKER 11/30/2023 1:48 AM BOIL OFF WORKER Errol sEcobar MD LAB BLOOD ORDERABLES Fide l Result Performing Organization Address [facility] Co de Phone Number [facility] [place] [address] * (ABNORMAL) Ferritin (11/30/2023 12:12 AM BOIL OFF WORKER) [facility] Ferritin 1,240(H) 30 - 400 ng/mL [facility] Blood 11/30/2023 12:1 2 AM BOIL OFF WORKER 11/30/2023 1:25 AM BOIL OFF WORKER Errol Escobar MD LAB BLOOD ORDERABLES Fide l Result Performing Organization Address City/State/[facility] Co de Phone Number [facility] [place] [address] * (ABNORMAL) Iron profile w/ IBC (11/30/2023 12:12 AM BOIL OFF WORKER) [facility] Iron 21(L) 50 - 150 mcg/dL [facility] TIBC 197(L) 250 - 400 mcg/dL [facility] Transferrin saturation 11(L) 20 - 50 % [facility] Blood 11/30/2023 12:1 2 AM BOIL OFF WORKER 11/30/2023 1:25 AM BOIL OFF WORKER Errol Escobar MD LAB BLOOD ORDERABLES Fide l Result Performing Organization Address [facility]/ZIP Co de Phone Number [facility] Department [place] [address] * Type and screen (11/30/2023 12:12 AM BOIL OFF WORKER) [facility] Jigna, indirect Negative ABO Rh O Positive [facility] Blood 11/30/2023 12:1 2 AM BOIL OFF WORKER 11/30/2023 1:29 AM BOIL OFF WORKER Narrative [facility] - 11/30/2023 2:27 AM BOIL OFF WORKER Has the patient had Daratumumab or Isatuximab in the past 6 months?->Unknown Errol Escobar MD LAB BLOOD BANK TEST ORDER CLEMENTINE Final Result Performing Organization Address [facility] Co de Phone Number [facility] Department [place] [address] * (ABNORMAL) CBC with auto differential (11/30/2023 12:12 AM BOIL OFF WORKER) [facility] WBC 6.2 3.8 - 9.9 K/cumm [facility] Hgb 7.3(L) 13.0 - 17.5 g/dL [facility] Hct 22.5(L) 38.9 - 50.3 % [facility] Plt 158 150 - 400 K/cumm [facility] MPV 10.7 9.1 - 12.3 fL [facility] RBC 2.39(L) 4.30 - 5.80 M/cumm [facility] MCV 94.1 81.3 - 96.4 fL [facility] MCH 30.5 27.1 - 33.3 pg [facility] MCHC 32.4 32.3 - 35.7 g/dL [facility] RDW CV 14.9 11.1 - 14.9 % [facility] RDW SD 52.5(H) 35.7 - 48.1 fL [facility] NRBC abs 0.00 0.00 - 0.01 K/cumm [facility] Blood 11/30/2023 12:1 2 AM BOIL OFF WORKER 11/30/2023 1:19 AM BOIL OFF WORKER us Errol Escobar MD LAB BLOOD ORDERABLES Fide rick Result [facility] Department [place] [address] * Pro B-type natriuretic peptide (11/30/2023 12:12 AM BOIL OFF WORKER) NT-proBNP 105 <=300 pg/mL [facility] Comment: Interpretive Comments: A. Dyspnea in Acute Care Setting All Ages: ?< 300 pg/ml, acute heart failure unlikely. < 50 yrs: ?300 - 450 pg/ml, further investigation warranted. ? > 450 pg/ml, acute heart failure likely. 50 - 74 yrs: ? 300 - 900 pg/ml, further investigation warranted. ? > 900 pg/ml, acute heart failure likely . > or = 75 yrs: ? 450 - 1800 pg/ml, further investigation warranted. ? > 1800 pg/ml, acute heart failure likely. B. Non-acute Setting < 75 yrs ? < 125 pg/ml, rules out heart failure. ? > or = 125 pg/ml, further investigation warranted. > or = 75 yrs ?< 450 pg/ml, rules out heart failure. ? > or = 450 pg/ml, further investigation warranted. - Knowledge of each individual patient's NT-proBNP range may be more useful than using similar cut-points for every patient. Please note that marked elevations in NT-proBNP levels may be observed in state other than Left Ventricular Congestive Failure, including: acute coronary syndromes, right heart strain/failure (including pulmonary embolism and cor pulmonale), critical illness, renal failure, as well as advanced age. - References: 1. Naif MORELOS et.al. Eur Heart J. 2006:27:330-337. 2. Jeanette WILSON, Leydi KINNEY. J. AM Brendan Cardiol: Cardiovasc Imag. 2009;2: 216- 225. Interpretive Data Last Revised Date: 2018. Blood 11/30/2023 12:1 2 AM BOIL OFF WORKER 11/30/2023 1:25 AM BOIL OFF WORKER Errol Escobar MD LAB BLOOD ORDERABLES Fide l Result Performing Organization Address [facility] Co de Phone Number [facility] Department [place] [address] * Calcium, ionized (11/30/2023 12:12 AM BOIL OFF WORKER) Calcium, Ionized 4.54 4.50 - 5.10 mg/dL [facility] Blood 11/30/2023 12:1 2 AM BOIL OFF WORKER 11/30/2023 1:18 AM BOIL OFF WORKER Errol Escobar MD LAB BLOOD ORDERABLES Fide l Result Performing Organization Address [facility] Co de Phone Number [facility] Department [place] [address] * Phosphorus (11/30/2023 12:12 AM BOIL OFF WORKER) Phosphorus, pl 3.2 2.3 - 4.5 mg/dL [facility] Blood 11/30/2023 12:1 2 AM BOIL OFF WORKER 11/30/2023 1:25 AM BOIL OFF WORKER Errol Escobar MD LAB BLOOD ORDERABLES Fide l Result Performing Organization Address [facility]/ZIP Co de Phone Number [facility] [place] [address] * Magnesium (11/30/2023 12:12 AM BOIL OFF WORKER) Pathologist [facility] Magnesium 2.1 1.4 - 2.5 mg/dL [facility] Blood 11/30/2023 12:1 2 AM BOIL OFF WORKER 11/30/2023 1:25 AM BOIL OFF WORKER Errol Escobar MD LAB BLOOD ORDERABLES Fide l Result Performing Organization Address [facility] de Phone Number [facility] Department [place] [address] * (ABNORMAL) Hepatic function panel (11/30/2023 12:12 AM BOIL OFF WORKER) [facility] Bilirubin, total 0.2 0.1 - 1.2 mg/dL [facility] Bilirubin, direct <0.2 0.1 - 0.3 mg/dL [facility] Protein, pl 5.8(L) 6.5 - 8.5 g/dL [facility] Albumin 2.7(L) 3.5 - 5.0 g/dL [facility] Alk phos 140(H) 40 - 130 Units/L [facility] ALT 77(H) 7 - 55 Units/L [facility] AST 61(H) 10 - 50 Units/L [facility] Blood 11/30/2023 12:1 2 AM BOIL OFF WORKER 11/30/2023 1:25 AM BOIL OFF WORKER Errol Escobar MD LAB BLOOD ORDERABLES Fide l Result Performing Organization Address [facility] Co de Phone Number [facility] [place] [address] * (ABNORMAL) Basic metabolic panel (11/30/2023 12:12 AM BOIL OFF WORKER) [facility] Sodium 132(L) 135 - 145 mmol/L [facility] Potassium, pl 4.7 3.3 - 4.9 mmol/L [facility] Chloride 98 97 - 110 mmol/L [facility] CO2 22 22 - 32 mmol/L [facility] Anion gap 12 2 - 15 mmol/L [facility] BUN 27(H) 6 - 25 mg/dL [facility] Creatinine 0.86 0.80 - 1.30 mg/dL [facility] Glucose 106 70 - 199 mg/dL [facility] Comment: Interpretive Data Fasting glucose [...] 2022. Calcium 8.6 8.5 - 10.3 mg/dL [facility] Blood 11/30/2023 12:1 2 AM BOIL OFF WORKER 11/30/2023 1:25 AM BOIL OFF WORKER Errol Escobar MD LAB BLOOD ORDERABLES Fide l Result [facility] Department [place] [address] * (ABNORMAL) Urinalysis, microscopic only (11/29/2023 10:42 PM BOIL OFF WORKER) Pathologist [facility] WBC, ur >50(A) 0 - 5 /HPF [facility] RBC, ur 21-50(A) 0 - 2 /HPF [facility] Bacteria, ur 3+(A) [facility] Urine 11/29/2023 10:4 2 PM BOIL OFF WORKER 11/29/2023 11:09 PM BOIL OFF WORKER Errol Escobar MD LAB URINE ORDERABLES Fide l Result Performing Organization Address [facility] de Phone Number [facility] [place] [address] * Sodium, urine, random (11/29/2023 10:42 PM BOIL OFF WORKER) Sodium, ur <20 mmol/L [facility] Comment: Interpretive Data No reference range established. Current interpretive data was last revised 2019. Urine 11/29/2023 10:4 2 PM BOIL OFF WORKER 11/29/2023 11:14 PM BOIL OFF WORKER Errol Escobar MD LAB URINE ORDERABLES Fide l Result Performing Organization Address [facility] Phone Number [facility] [place] [address] * Creatinine, urine, random (11/29/2023 10:42 PM BOIL OFF WORKER) Creatinine Ur 97.0 mg/dL [facility] Comment: Interpretive Data No reference range established. Current interpretive data was last revised 2019. Urine 11/29/2023 10:4 2 PM BOIL OFF WORKER 11/29/2023 11:14 PM BOIL OFF WORKER Errol Escobar MD LAB URINE ORDERABLES Fide l Result Performing Organization Address [facility] Phone Number [facility] [place] [address] * Osmolality, urine (11/29/2023 10:42 PM BOIL OFF WORKER) Osmo, ur 556 mOsm/kg [facility] Urine 11/29/2023 10:4 2 PM BOIL OFF WORKER 11/29/2023 11:14 PM BOIL OFF WORKER Errol Escobar MD LAB URINE ORDERABLES Fide l Result [facility] Department [place] [address] * (ABNORMAL) Urinalysis reflex to microscopic (11/29/2023 10:42 PM BOIL OFF WORKER) Color, ur Ling Yellow [facility] Clarity, ur Turbid(A) Clear [facility] Specific gravity, ur 1.023 1.003 - 1.030 [facility] pH, urine 6.5 [facility] Comment: Interpretive Data ? Urine pH is affected by diet, medications, systemic acid-base disturbances, and renal tubular function. ??pH may affect urinary stone formation. ??For example, urine pH below 6.0 may help reduce the tendency for calcium phosphate stones and pH greater than 6.0 may reduce the tendency for uric acid stone formation. Source: [facility] Current Interpretive Data was last revised on 2017 Protein, ur ql 3+(A) Negative [facility] Glucose, ur ql Negative Negative [facility] Ketones, ur Negative Negative [facility] Bilirubin, ur Negative Negative [facility] Blood, ur 2+(A) Negative [facility] Urobilinogen, ur <2.0 <2.0 mg/dL [facility] Nitrite, ur Negative Negative [facility] Leukocyte esterase, ur 3+(A) Negative [facility] UA reflex comment Reflex to microscopic UA will be performed. [facility] Urine 11/29/2023 10:4 2 PM BOIL OFF WORKER 11/29/2023 11:09 PM BOIL OFF WORKER Errol Escobar MD LAB URINE ORDERABLES Fide rick Result [facility] Department [place] [address] * POCT glucose (11/29/2023 7:56 PM BOIL OFF WORKER) Glucose, POC 167 70 - 199 mg/dL [facility] Blood 11/29/2023 7:56 PM BOIL OFF WORKER 11/29/2023 7:56 PM BOIL OFF WORKER Errol Escobar MD LAB POCT ORDERABLES - DEV ICE Final Result [facility] Department [place] [address] * POCT glucose (11/29/2023 5:27 PM BOIL OFF WORKER) Glucose, POC 115 70 - 199 mg/dL [facility] Blood 11/29/2023 5:27 PM BOIL OFF WORKER 11/29/2023 5:27 PM BOIL OFF WORKER Jolynn Cabrera MD LAB POCT ORDERABLES - DEVICE Final Result Performing Organization Address [facility] Co de Phone Number [facility] Department [place] [address] documented in this encounter Visit Diagnoses Diagnosis DVT (deep venous thrombosis) (CMS/HCC) (HCC)- Primary Acute venous embolism and thrombosis of unspecified deep vessels of lower extremity Lower extremity edema Edema HTN (hypertension) Unspecified essential hypertension Prostate cancer (HCC) Malignant neoplasm of prostate 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 Pulmonary embolism (HCC) Other pulmonary embolism and infarction UTI (urinary tract infection) Urinary tract infection, site not specified Hydronephrosis with urinary obstruction due to renal calculus Anemia Unspecified anemia Paraspinal hematoma Contusion of unspecified site Hyponatremia Hyposmolality and/or hyponatremia Elevated transaminase level Lower extremity edema Edema Scrotal swelling Edema of male genital organs Seizure (HCC) Other convulsions Prediabetes Other abnormal glucose documented in this encounter Admitting Diagnoses Diagnosis DVT (deep venous thrombosis) (CMS/HCC) (HCC) Acute venous embolism and thrombosis of unspecified deep vessels of lower extremity documented in this encounter Administered Medications Inactive Administered Medications - up to 3 most recent administrations Medication Order MAR Action Action Date Dose Rate Site acetaminophen (TYLENOL) tablet 1,000 mg 1,000 mg, oral, Every 6 hours, First dose on Helene 11/29/23 at 1945 Given 12/09/2023 8:10 AM BOIL OFF WORKER 1,000 mg Given 12/09/2023 4:16 AM BOIL OFF WORKER 1,000 mg Given 12/08/2023 8:54 PM BOIL OFF WORKER 1,000 mg acetaminophen (TYLENOL) tablet 1,000 mg 1,000 mg, oral, Every 6 hours PRN, 1st line for pain, Starting on 12/09/23 at 1100 acyclovir (ZOVIRAX) tablet 400 mg 400 mg, oral, 2 times daily, First dose on Sun11/29/23 at 2100, Indications: Chronic SuppressionIndications:Chronic Suppression Given 12/10/2023 8:12 AM BOIL OFF WORKER 4 00 mg Given 12/09/2023 8:48 PM BOIL OFF WORKER 400 mg Given 12/09/2023 8:10 AM BOIL OFF WORKER 400 mg calcium carbonate (TUMS) chewable tablet 1,000 mg 1,000 mg (400 mg of elemental calcium), oral, Once, On Sun12/03/23 at 1745, For 1 dose Given 12/03/2023 5:17 PM BOIL OFF WORKER 1,000 mg cholecalciferol (VITAMIN D-3) capsule 5,000 Units 5,000 Units, oral, Every morning, First dose on Sun11/30/23 at 0900, Each capsule contains 5,000 units (125 mcg) of cholecalciferol,, Indications: Vitamin D DeficiencyIndications:Vitamin D Deficiency Given 12/10/2023 8:12 AM BOIL OFF WORKER 5,000 Units Given 12/09/2023 8:10 AM BOIL OFF WORKER 5,000 Units Given 12/08/2023 8:53 AM BOIL OFF WORKER 5,000 Units dilTIAZem XR (CARDIZEM CD,DILACOR XR) 24 hour capsule 240 mg 240 mg, oral, 2 times daily, First dose on Sun11/29/23 at 2100, Do not crush, chew, cut, dissolve, open or otherwise manipulate tablet/capsule., Indications: hypertensionIndications:hypertension Given 12/10/2023 8:12 AM BOIL OFF WORKER 240 mg Given 12/09/2023 8:48 PM BOIL OFF WORKER 240 mg Given 12/09/2023 8:10 AM BOIL OFF WORKER 240 mg enoxaparin (LOVENOX) syringe 80 mg 80 mg (rounded from 81.6 mg = 1 mg/kg ? 81.6 kg), subcutaneous, Every 12 hours scheduled, First dose on Sun12/05/23 at 2100, Indications: Venous ThrombosisIndications:Venous Thrombosis Given 12/10/2023 8:12 AM BOIL OFF WORKER 80 mg Left Upper Abdomen Given 12/09/2023 8:48 PM BOIL OFF WORKER 80 mg Le ft Lower Abdomen Given 12/09/2023 8:10 AM BOIL OFF WORKER 80 mg Le ft Lower Abdomen furosemide (LASIX) 10 mg/mL injection 20 mg 20 mg, intravenous, Once, On Sun12/04/23 at 1615, For 1 dose, For IV push: administer doses < 160 mg at a rate of 20 -40 mg/min. Doses >/= 160 mg should be administered no faster than 4 mg/min. Room temperature only Given 12/04/2023 4:0 2 PM BOIL OFF WORKER 20 mg furosemide (LASIX) 10 mg/mL injection 20 mg 20 mg, intravenous, 2 times daily (for diuretics), First dose (after last reorder) on Sun12/05/23 at 0900, For IV push: administer doses < 160 mg at a rate of 20 -40 mg/min. Doses >/= 160 mg should be administered no faster than 4 mg/min. Room temperature only Given 12/06/2023 8:5 2 AM BOIL OFF WORKER 20 mg Given 12/05/2023 4:14 PM BOIL OFF WORKER 20 mg Given 12/05/2023 10:30 AM BOIL OFF WORKER 20 mg furosemide (LASIX) 10 mg/mL injection 20 mg 20 mg, intravenous, 2 times daily (for diuretics), First dose (after last modification) on Sun12/07/23 at 0900, For IV push: administer doses < 160 mg at a rate of 20 -40 mg/min. Doses >/= 160 mg should be administered no faster than 4 mg/min. Room temperature only Given 12/08/2023 8:53 AM BOIL OFF WORKER 20 mg Given 12/07/2023 4:18 PM BOIL OFF WORKER 20 mg Given 12/07/2023 9:34 AM BOIL OFF WORKER 20 mg furosemide (LASIX) 10 mg/mL injection 40 mg 40 mg, intravenous, 2 times daily (for diuretics), First dose (after last modification) on Sun12/06/23 at 1600, For IV push: administer doses < 160 mg at a rate of 20 -40 mg/min. Doses >/= 160 mg should be administered no faster than 4 mg/min. Room temperature only Given 12/06/2023 3:39 PM BOIL OFF WORKER 40 mg furosemide (LASIX) 10 mg/mL injection 40 mg 40 mg, intravenous, 2 times daily (for diuretics), First dose (after last modification) on 12/08/23 at 1600, For IV push: administer doses < 160 mg at a rate of 20 -40 mg/min. Doses >/= 160 mg should be administered no faster than 4 mg/min. Room temperature only Given 12/10/2023 8:12 AM BOIL OFF WORKER 40 mg Given 12/09/2023 4:40 PM BOIL OFF WORKER 40 mg Given 12/09/2023 8:12 AM BOIL OFF WORKER 40 mg furosemide (LASIX) tablet 40 mg 40 mg, oral, 2 times daily (for diuretics), First dose on 12/10/23 at 1600 Given 12/10/2023 3:07 PM BOIL OFF WORKER 40 mg gabapentin (NEURONTIN) tablet 600 mg 600 mg, oral, 3 times daily, First dose on Helene 11/29/23 at 2100, Indications: PainIndications:Pain Given 12/08/2023 8:54 PM BOIL OFF WORKER 600 mg Given 12/08/2023 8:53 AM BOIL OFF WORKER 600 mg Given 12/06/2023 8:51 AM BOIL OFF WORKER 600 mg guaiFENesin (ROBITUSSIN) 20 mg/mL oral liquid 200 mg 200 mg, oral, 4 times daily PRN, cough, Starting on 12/08/23 at 2144 Given 12/08/2023 10:03 PM BOIL OFF WORKER 200 mg heparin 1,000 unit/mL injection 3,000 Units 3,000 Units, intravenous, Every 6 hours PRN, PTT less than 46 seconds, Starting on Sun11/30/23 at 1103, Subsequent bolus during heparin infusion., Indications: Venous ThrombosisIndications:Venous Thrombosis Given 12/01/2023 2:[address] 3,000 Units Given 12/01/2023 6:14 AM BOIL OFF WORKER 3,000 Units Given 11/30/2023 10:31 PM BOIL OFF WORKER 3,000 Units heparin in 0.9% sodium chloride 25,000 unit/250 mL infusion (premix) 0-33 Units/kg/hr ? 81.6 kg (0-26.928 mL/hr, rounded to 0-26.93 mL/hr), intravenous, Titrated, Starting on Sun11/30/23 at 1145, WEIGHT-BASED HEPARIN INFUSION Initial dose:: 12 Units/kg/hr. Max initial dose: 1,000 units/hr. Adjust infusion based upon nomogram: PTT less than 46 seconds:? Bolus if ordered (see PRN bolus order), then increase infusion dose 3 units/kg/hour PTT 46 - 55 seconds:? Bolus if ordered (see PRN bolus order), then increase infusion dose 2 units/kg/hour PTT 56 - 65 seconds:? Increase infusion dose 1 unit/kg/hour PTT 66 - 100 seconds:? No??change PTT 101 - 110 seconds:? Decrease infusion dose 1 unit/kg/hour PTT 111 - 120 seconds:? Hold infusion for 30 minutes, then decrease infusion dose 2 units/kg/hour PTT greater than 120 seconds:?Hold infusion for 1 hour, then decreaseinfusion dose 3 units/kg/hour Draw STAT PTT 6 hrs after initiation of heparin infusion, draw STAT PTT 6 hours after each dose change, and every 6 hours until 2 consecutive PTTs are within therapeutic range. Once two consecutive PTT's are therapeutic (66-100 seconds), then draw PTT every AM until heparin is discontinued., Indications: Venous ThrombosisIndications:Venous Thrombosis New Bag 12/04/2023 10:23 PM BOIL OFF WORKER 23 Units/kg/hr 18.77 mL/hr New Bag 12/04/2023 7:09 AM BOIL OFF WORKER 23 Units/kg/hr 18.77 mL/ hr Rate/Dose Verify 12/03/2023 11:15 PM BOIL OFF WORKER 23 Units/kg/hr 18 .77 mL/hr ioversoL (OPTIRAY 350) injection 100 mL 100 mL, intravenous, Once in imaging, contrast, Starting on Sun11/30/23 at 0136, For 1 dose Contrast Given 11/30/2023 1:49 AM BOIL OFF WORKER 88 mL levETIRAcetam (KEPPRA) tablet 1,000 mg 1,000 mg, oral, 2 times daily, First dose on Sun11/29/23 at 2100, May mix with 120 mL of enteral nutrition formula or disperse crushed tablets (500 mg tablet strength studied) in 10 mL of water, shake for 5 minutes to dissolve, and administer immediately via enteral feeding tube. Given 12/10/2023 8:12 AM BOIL OFF WORKER 1,000 mg Given 12/09/2023 8:48 PM BOIL OFF WORKER 1,000 mg Given 12/09/2023 8:10 AM BOIL OFF WORKER 1,000 mg miconazole 2 % powder topical, 2 times daily, First dose on Sun11/29/23 at 2100, Apply to affected area: perineum Given 12/09/2023 9:07 PM BOIL OFF WORKER Given 12/09/2023 8:12 AM BOIL OFF WORKER Given 12/08/2023 10:12 PM BOIL OFF WORKER nitrofurantoin monohydrate (MACROBID) capsule 100 mg 100 mg, oral, 2 times daily, First dose on Sun11/29/23 at 2100, Take with food, Indications: Urinary Tract/Genitourinary InfectionIndications:Urinary Tract/Genitourinary Infection Given 11/30/2023 8:01 AM BOIL OFF WORKER 100 mg Given 11/29/2023 8:42 PM BOIL OFF WORKER 100 mg ondansetron (ZOFRAN) injection 4 mg 4 mg, intravenous, Administer over 2 Minutes, Every 6 hours PRN, nausea, vomiting, if not tolerating PO, Starting on Sun11/29/23 at 1901, Indications: Nausea and VomitingIndications:Nausea and Vomiting ondansetron ODT (ZOFRAN-ODT) disintegrating tablet 4 mg 4 mg, oral, Every 6 hours PRN, nausea, vomiting, Starting on Helene 11/29/23 at 1901, Indications: Nausea and VomitingIndications:Nausea and Vomiting pantoprazole DR (PROTONIX) extended release tablet 40 mg 40 mg, oral, Daily, First dose on Sun11/29/23 at 1945, Do not crush, chew, cut, dissolve, open or otherwise manipulate tablet/capsule., Indications: Treatment of Non-Bleeding Gastric DisorderIndications:Treatment of Non-Bleeding Gastric Disorder Given 12/10/2023 8:12 AM BOIL OFF WORKER 40 mg Given 12/09/2023 8:10 AM BOIL OFF WORKER 40 mg Given 12/08/2023 8:53 AM BOIL OFF WORKER 40 mg potassium chloride ER (KLOR-CON) extended release tablet 20 mEq 20 mEq, oral, Once, On Helene 12/06/23 at 1415, For 1 dose, Tablets should not be crushed, chewed, dissolved, or otherwise manipulated. Capsules may be opened and sprinkled on a spoonful of applesauce or pudding, but the contents of the capsule should not be crushed or chewed. Given 12/06/2023 3:39 PM BOIL OFF WORKER 20 mEq ramelteon (ROZEREM) tablet 8 mg 8 mg, oral, Nightly PRN, sleep, Starting on Sun11/29/23 at 1901, Indications: Sleep-Onset InsomniaIndications:Sleep-Onset Insomnia Given 12/09/2023 8:49 PM BOIL OFF WORKER 8 m g Given 12/08/2023 10:03 PM BOIL OFF WORKER 8 mg Given 12/07/2023 3:58 AM BOIL OFF WORKER 8 mg senna-docusate (PERICOLACE) 8.6-50 mg per tablet 1 tablet 1 tablet, oral, Nightly, First dose (after last modification) on Sun12/03/23 at 2100 Given 12/08/2023 8:54 PM BOIL OFF WORKER 1 tablet Given 12/03/2023 8:28 PM BOIL OFF WORKER 1 tablet senna-docusate (PERICOLACE) 8.6-50 mg per tablet 2 tablet 2 tablet, oral, 2 times daily, First dose (after last modification) on Sun11/29/23 at 2100 Given 12/02/2023 8:50 PM BOIL OFF WORKER 2 tablets Given 12/02/2023 8:19 AM BOIL OFF WORKER 2 tablets Given 12/01/2023 8:51 PM BOIL OFF WORKER 2 tablets sodium chloride 0.9% IVPB 0-250 mL 0-250 mL, intravenous, Once, On Sun12/02/23 at 1145, For 1 dose, Prime blood tubing and administer amount needed to clear line (usually 50-100 mL) after transfusion complete. New Bag 12/02/2023 2:58 PM BOIL OFF WORKER 250 mL sulfamethoxazole-trimethoprim (BACTRIM DS) 800-160 mg per tablet 160 mg of trimethoprim 160 mg of trimethoprim, oral, 2 times daily, First dose (after last modification) on Sun11/30/23 at 1230, For 7 days, Indications: Skin/Soft Tissue InfectionIndications:Skin/Sof t Tissue Infection Given 12/06/2023 8:56 PM BOIL OFF WORKER 160 mg of trimethoprim Given 12/06/2023 8:51 AM BOIL OFF WORKER 160 mg of trimethoprim Given 12/05/2023 10:13 PM BOIL OFF WORKER 160 mg of trimethoprim tamsulosin (FLOMAX) extended release capsule 0.8 mg 0.8 mg, oral, Daily with dinner, First dose on Sun11/29/23 at 1945, Do not crush, chew, cut, dissolve, open or otherwise manipulate tablet/capsule. Given 12/09/2023 5:18 PM BOIL OFF WORKER 0.8 mg Given 12/08/2023 4:37 PM BOIL OFF WORKER 0.8 mg Given 12/07/2023 5:09 PM BOIL OFF WORKER 0.8 mg traZODone (DESYREL) tablet 50 mg 50 mg, oral, Nightly PRN, sleep, 2nd line, Starting on Sun11/30/23 at 1104 Given 12/05/2023 12:47 AM BOIL OFF WORKER 50 mg Given 12/02/2023 8:51 PM BOIL OFF WORKER 50 mg Given 12/01/2023 8:54 PM BOIL OFF WORKER 50 mg documented in this encounter Discontinued Medications Medication Sig Discontinue Reason Start Date End Da te cetirizine (ZyrTEC) 10 mg tabletIndications:All ergic Rhinitis Take 1 tablet (10 mg total) by mouth azure principal solution specialist before breakfast 11/29/2023 coenzyme Q10 100 mg capsule Take 1 capsule (100 mg total) by mouth azure principal solution specialist before breakfast 11/29/2023 enoxaparin (LOVENOX) 40 mg/0.4 mL syringe Inject 0.4 mL (40 mg total) under the skin daily Prophylactic dosing only for lovenox until follow-up with hematology outpatient 11/29/2023 11/29/2023 irbesartan (AVAPRO) 150 mg tabletIndications:hyp ertension Take 1 tablet (150 mg total) by mouth every morning 11/17/2023 11/29/2023 acetaminophen 500 mg capsule Take 2 capsules (1,000 mg total) by mouth every 6 (six) hours Error 11/16/2023 12/05/2023 gabapentin (NEURONTIN) 300 mg capsuleIndications:Pa in Take 1 capsule (300 mg total) by mouth every 8 (eight) hours Error 10/30/2023 12/05/2023 Mounjaro 10 mg/0.5 mL pen injectorIndications:P re-Diabetic Inject 10 mg under the skin once a week Sunday Error 04/05/2023 12/05/2023 omeprazole (PriLOSEC) 20 mg capsuleIndications:Tr eatment of Non-Bleeding Gastric Disorder,GERD Take 1 capsule (20 mg total) by mouth every morning Error 12/05/2023 senna-docusate (PERICOLACE) 8.6-50 mg Take 2 tablets by mouth 2 (two) times a day Error 11/16/2023 12/05/2023 acyclovir (ZOVIRAX) 400 mg tabletIndications:Chr onic Suppression Take 1 tablet (400 mg total) by mouth 2 (two) times a day 06/08/2019 12/10/2023 DILT-XR 240 mg 24 hr capsuleIndications:hy pertension Take 1 capsule (240 mg total) by mouth 2 (two) times a day 05/12/2019 12/10/2023 cholecalciferol (VITAMIN D-3) 5,000 unit capsuleIndications:Vi tamin D Deficiency Take 1 capsule (5,000 Units total) by mouth every morning 12/10/2023 cyclobenzaprine (FLEXERIL) 5 mg tablet Take 1 tablet (5 mg total) by mouth 3 (three) times a day as needed for muscle spasms 10/30/2023 12/10/2023 tamsulosin (FLOMAX) 0.4 mg extended release capsule Take 2 capsules (0.8 mg total) by mouth daily with dinner 10/30/2023 12/10/2023 levETIRAcetam (KEPPRA) 1,000 mg tablet Take 1 tablet (1,000 mg total) by mouth 2 (two) times a day Stop Taking at Discharge 10/30/2023 12/10/2023 traMADoL (ULTRAM) 50 mg tablet Take 1 tablet (50 mg total) by mouth every 4 (four) hours as needed for pain Stop Taking at Discharge 11/16/2023 12/10/2023 bisacodyL (DULCOLAX) 10 mg suppositoryIndication s:constipation Insert 1 suppository (10 mg total) into the rectum daily Stop Taking at Discharge 12/10/2023 loratadine (CLARITIN) 10 mg tablet Take 1 tablet (10 mg total) by mouth daily Stop Taking at Discharge 12/10/2023 nystatin powder Apply 1 Application topically 2 (two) times a day Stop Taking at Discharge 12/10/2023 psyllium husk, with dextrose, 3.4 gram/ 6.5 gram powderIndications:con stipation Take 3.4 mg by mouth 2 (two) times a day Stop Taking at Discharge 12/10/2023 nitrofurantoin monohydrate (MACROBID) 100 mg capsule Take 1 capsule (100 mg total) by mouth 2 (two) times a day Stop Taking at Discharge 12/10/2023 acetaminophen (TYLENOL) 500 mg tablet Take 2 tablets (1,000 mg total) by mouth every 6 (six) hours as needed for pain Stop Taking at Discharge 12/10/2023 gabapentin (NEURONTIN) 600 mg tablet Take 1 tablet (600 mg total) by mouth 3 (three) times a day Stop Taking at Discharge 12/10/2023 senna-docusate (PERICOLACE) 8.6-50 mg Take 1 tablet by mouth 2 (two) times a day as needed for constipation Stop Taking at Discharge 12/10/[address] (PROTONIX) 40 mg EC tablet Take 1 tablet (40 mg total) by mouth daily Stop Taking at Discharge 12/10/2023 insulin lispro (HumaLOG, ADMELOG) 100 unit/mL pen for injection Inject 0-3 Units under the skin 3 (three) times a day with meals Stop Taking at Discharge 12/10/2023 irbesartan (AVAPRO) 300 mg tablet Stop Taking at Discharge 11/21/2023 12/10/2023 documented as of this encounter Historical Medications * This list may reflect changes made after this encounter. insulin lispro (HumaLOG, ADMELOG) 100 unit/mL pen for injection Inject 0-3 Units under the skin 3 (three) times a day with meals pantoprazole DR (PROTONIX) 40 mg EC tablet Take 1 tablet (40 mg total) by mouth daily 4 senna-docusate (PERICOLACE) 8.6-50 mg Take 1 tablet by mouth 2 (two) times a day as needed for constipation 4 gabapentin (NEURONTIN) 600 mg tablet Take 1 tablet (600 mg total) by mouth 3 (three) times a day 4 acetaminophen (TYLENOL) 500 mg tablet Take 2 tablets (1,000 mg total) by mouth every 6 (six) hours as needed for pain 4 nitrofurantoin monohydrate (MACROBID) 100 mg capsule Take 1 capsule (100 mg total) by mouth 2 (two) times a day 4 psyllium husk, with dextrose, 3.4 gram/ 6.5 gram powderIndications :constipation Take 3.4 mg by mouth 2 (two) times a day 4 nystatin powder Apply 1 Application topically 2 (two) times a day 4 loratadine (CLARITIN) 10 mg tablet Take 1 tablet (10 mg total) by mouth daily 4 bisacodyL (DULCOLAX) 10 mg suppositoryIndica tions:constipatio n Insert 1 suppository (10 mg total) into the rectum daily 4 added in this encounter Active and Recently Administered Medications Times are shown in BOIL OFF WORKER. Scheduled Medication Order 12/08/2023 12/09/2023 12/10/2023 acetaminophen (TYLENOL) tablet 1,000 mg (CANCELED) 1,000 mg, oral, Every 6 hours, First dose on Sun11/29/23 at 1945 0408 (Given - Provider: Hood Guillaume RN)0853 (Given - Provider: Tia Riggins RN)1637 (Given - Provider: Tia Riggins RN)2053 (Given - Provider: Seth Arias RN) 0416 (Given - Provider: Seth Arias RN)0810 (Given - Provider: Tia Riggins RN) acyclovir (ZOVIRAX) tablet 400 mg 400 mg, oral, 2 times daily, First dose on Helene 11/29/23 at 2100, Indications: Chronic Suppression 0853 (Given - Provider: Tia Riggins RN)2053 (Given - Provider: Seth Arias RN) 809 (Given - Provider: Tia Riggins RN)2047 (Given - Provider: Seth Arias RN) 811 (Given - Provider: Angelina Thomas, NARENDRA) cholecalciferol (VITAMIN D-3) capsule 5,000 Units 5,000 Units, oral, Every morning, First dose on Sun11/30/23 at 0900, Each capsule contains 5,000 units (125 mcg) of cholecalciferol,, Indications: Vitamin D Deficiency 0853 (Given - Provider: Tia Riggins RN) 809 (Given - Provider: Tia Riggins RN) 811 (Given - Provider: Angelina Thomas, NARENDRA) dilTIAZem XR (CARDIZEM CD,DILACOR XR) 24 hour capsule 240 mg 240 mg, oral, 2 times daily, First dose on Sun11/29/23 at 2100, Do not crush, chew, cut, dissolve, open or otherwise manipulate tablet/capsule., Indications: hypertension 0853 (Given - Provider: Tia Riggins RN)2053 (Given - Provider: Seth Arias RN) 809 (Given - Provider: Tia Riggins RN)2047 (Given - Provider: Seth Arias RN) 811 (Given - Provider: Angelina Thomas, NARENDRA) enoxaparin (LOVENOX) syringe 80 mg 80 mg (rounded from 81.6 mg = 1 mg/kg ? 81.6 kg), subcutaneous, Every 12 hours scheduled, First dose on Sun12/05/23 at 2100, Indications: Venous Thrombosis 0853 (Given - Provider: Tia Riggins RN)2052 (Given - Provider: Seth Arias RN) 809 (Given - Provider: Tia Riggins RN)2047 (Given - Provider: Seth Arias RN) 811 (Given - Provider: Angelina Thomas, NARENDRA) furosemide (LASIX) 10 mg/mL injection 20 mg (CANCELED) 20 mg, intravenous, 2 times daily (for diuretics), First dose (after last modification) on Sun12/07/23 at 0900, For IV push: administer doses < 160 mg at a rate of 20 -40 mg/min. Doses >/= 160 mg should be administered no faster than 4 mg/min. Room temperature only 0853 (Given - Provider: Tia Riggins RN) furosemide (LASIX) 10 mg/mL injection 40 mg (CANCELED) 40 mg, intravenous, 2 times daily (for diuretics), First dose (after last modification) on Sun12/08/23 at 1600, For IV push: administer doses < 160 mg at a rate of 20 -40 mg/min. Doses >/= 160 mg should be administered no faster than 4 mg/min. Room temperature only 1636 (Given - Provider: Tia Riggins RN) 0812 (Given - Provider: Tia Riggins RN)1640 (Given - Provider: Tia Riggins RN) 0812 (Given - Provider: Angelina Thomas RN) furosemide (LASIX) tablet 40 mg 40 mg, oral, 2 times daily (for diuretics), First dose on Sun12/10/23 at 1600 1507 (Given - Provider: Angelina Thomas, NARENDRA) gabapentin (NEURONTIN) tablet 600 mg 600 mg, oral, 3 times daily, First dose on Helene 11/29/23 at 2100, Indications: Pain 0853 (Given - Provider: Tia Riggins RN)1637 (Not Given - Provider: Tia Riggins RN - Reason: Patient/family refused)2054 (Given - Provider: Seth Arias RN) 0810 (Not Given - Provider: Tia Riggins RN - Reason: Patient/family refused)1718 (Not Given - Provider: Tia Riggins RN - Reason: Patient/family refused)2106 (Not Given - Provider: Seth Arias RN - Reason: Patient/family refused) 0812 (Not Given - Provider: Angelina Thomas RN - Reason: Patient/family refused)1505 (Not Given - Provider: Angelina Thomas RN - Reason: Patient/family refused) levETIRAcetam (KEPPRA) tablet 1,000 mg 1,000 mg, oral, 2 times daily, First dose on Helene 11/29/23 at 2100, May mix with 120 mL of enteral nutrition formula or disperse crushed tablets (500 mg tablet strength studied) in 10 mL of water, shake for 5 minutes to dissolve, and administer immediately via enteral feeding tube. 0853 (Given - Provider: Tia Riggins RN)2053 (Given - Provider: Seth Arias RN) 0810 (Given - Provider: Tia Riggins RN)2047 (Given - Provider: Seth Arias RN) 08 (Given - Provider: Angelina Thomas RN) miconazole 2 % powder topical, 2 times daily, First dose on Sun11/29/23 at 2100, Apply to affected area: perineum 0858 (Given - Provider: Tia Riggins RN)2211 (Given - Provider: Seth Arias RN) 08 (Given - Provider: Tia Riggins RN)2106 (Given - Provider: Seth Arias RN) 08 (Not Given - Provider: Angelina Thomas RN - Reason: Other - Comment: per patient, just applied prior to shift change) pantoprazole DR (PROTONIX) extended release tablet 40 mg 40 mg, oral, Daily, First dose on Sun11/29/23 at 1945, Do not crush, chew, cut, dissolve, open or otherwise manipulate tablet/capsule., Indications: Treatment of Non-Bleeding Gastric Disorder 0853 (Given - Provider: Tia Riggins RN) 0810 (Given - Provider: Tia Riggins RN) 08 (Given - Provider: Angelina Thomas, NARENDRA) senna-docusate (PERICOLACE) 8.6-50 mg per tablet 1 tablet 1 tablet, oral, Nightly, First dose (after last modification) on Sun12/03/23 at 2100 2053 (Given - Provider: Seth Arias RN) 2106 (Not Given - Provider: Seth Arias RN - Reason: Patient/family refused) tamsulosin (FLOMAX) extended release capsule 0.8 mg 0.8 mg, oral, Daily with dinner, First dose on Helene 11/29/23 at 1945, Do not crush, chew, cut, dissolve, open or otherwise manipulate tablet/capsule. 1637 (Given - Provider: Tia Riggins RN) 1718 (Given - Provider: Tia Riggins RN) PRN Medication Order 12/08/2023 12/09/2023 12/10/2023 acetaminophen (TYLENOL) tablet 1,000 mg 1,000 mg, oral, Every 6 hours PRN, 1st line for pain, Starting on Sun12/09/23 at 1100 bisacodyL (DULCOLAX) suppository 10 mg 10 mg, rectal, Daily PRN, constipation, Starting on Helene 11/29/23 at 1857, Indications: constipation cyclobenzaprine (FLEXERIL) tablet 5 mg 5 mg, oral, 3 times daily PRN, muscle spasms, Starting on Helene 11/29/23 at 1857 guaiFENesin (ROBITUSSIN) 20 mg/mL oral liquid 200 mg 200 mg, oral, 4 times daily PRN, cough, Starting on 12/08/23 at 2144 2203 (Given - Provider: Seth Arias RN) ondansetron (ZOFRAN) injection 4 mg(Linked Group 1) 4 mg, intravenous, Administer over 2 Minutes, Every 6 hours PRN, nausea, vomiting, if not tolerating PO, Starting on Helene 11/29/23 at 1901, Indications: Nausea and Vomiting ondansetron ODT (ZOFRAN-ODT) disintegrating tablet 4 mg(Linked Group 1) 4 mg, oral, Every 6 hours PRN, nausea, vomiting, Starting on Helene 11/29/23 at 1901, Indications: Nausea and Vomiting oxyCODONE (ROXICODONE) tablet 5 mg 5 mg, oral, Every 4 hours PRN, 2nd line for pain, Starting on Helene 11/29/23 at 1858, Indications: Pain ramelteon (ROZEREM) tablet 8 mg 8 mg, oral, Nightly PRN, sleep, Starting on Helene 11/29/23 at 1901, Indications: Sleep-Onset Insomnia 2202 (Given - Provider: Seth Arias RN) 2048 (Given - Provider: Seth Arias RN) traZODone (DESYREL) tablet 50 mg 50 mg, oral, Nightly PRN, sleep, 2nd line, Starting on Sun11/30/23 at 1104 Linked Groups Order Group 1: ondansetron ODT (ZOFRAN-ODT) disintegrating tablet 4 mgJump to med 4 mg, oral, Every 6 hours PRN, nausea, vomiting, Starting on Helene 11/29/23 at 1901, Indications: Nausea and Vomiting Or ondansetron (ZOFRAN) injection 4 mgJump to med 4 mg, intravenous, Administer over 2 Minutes, Every 6 hours PRN, nausea, vomiting, if not tolerating PO, Starting on Helene 11/29/23 at 1901, Indications: Nausea and Vomiting documented in this encounter Orders Medications Ordered That Armando ht Not Have Been Administered Count Last Ordered Date First Ordered Date acetaminophen (TYLENOL) tablet 1,000 mg 1 0 12/09/2023 heparin 1,000 unit/mL inject ion 2,000 Units 1 11/30/2023 sulfamethoxazole-trimethopri m (BACTRIM DS) 800-160 mg per tablet 160 mg of trimethoprim 1 11/30/2023 bisacodyL (DULCOLAX) suppository 10 mg 1 cyclobenzaprine (FLEXERIL) tablet 5 mg 1 dextrose (D10W) 10% bolus 250 mL 11/29/19 dextrose gel in packet 15 g 11/29/2023 glucagon injection 1 mg 1 11/29/2023 insulin lispro (HumaLOG, ADM ELOG) 100 unit/mL injection 0-4 Units 1 11/29/2023 insulin lispro (HumaLOG, ADM ELOG) 100 unit/mL injection 0-5 Units 11/29/2023 ondansetron (ZOFRAN) injection 4 mg 1 11/29 ondansetron ODT (ZOFRAN-ODT) disintegrating tablet 4 mg 1 11/29/2023 oxyCODONE (ROXICODONE) tablet 5 mg 2023 senna-docusate (PERICOLACE) 8.6-50 mg per tablet 2 tablet 1 11/29/2023 Lab Orders Without Results Count Last Ordered D ate First Ordered Date POCT GLUCOSE DEVICE 15 12/04/2023 11/29/19 HEPATIC FUNCTION PANEL 1 12/02/2023 Nursing Count Last Ordered Date First Orde red Date NURSING COMMUNICATION 1 12/02/2023 Consult Count Last Ordered Date First Orde red Date CONSULT TO PM&R PHYSICIAN 1 12/04/2023 IP CONSULT TO UROLOGY 1 11/30/2023 IP CONSULT TO HEMATOLOGY 1 11/29/2023 IP CONSULT TO ORTHO SPINE 1 11/29/2023 IP CONSULT TO VASCULAR SURGERY 1 11/29/2023 Admission Count Last Ordered Date First Orde red Date ADMIT TO INPATIENT 2 11/29/2023 Discharge Count Last Ordered Date First Orde red Date DISCHARGE PATIENT 1 12/10/2023 CORE MEASURES Count Last Ordered Date First Ord ered Date REASON FOR NO VTE PROPHYLAXIS AT ADMISSION 1 11/29/2023 documented in this encounter Care Teams Tax Credit Leasing Consultant Relationship Specialty Start Date End Date Rl Medina DO [address] [place] [address] PCP - General 08/09/17 05/25/24 documented as of this encounter
--- OUTSIDE RECORDS SUMMARY | 2024-11-05 19:21 | XMS_ITS | Encounter Summary ---
Author Organization [facility] Address [address] [place] [address] Phone Care Team Providers Care Can Patcher Name Role Phone Rl Medina DO Primary Care Provider Encounter Details Date Type Department Care Team (Late st Contact Info) Description 11/23/2023 Documentation [facility] Orthopaedic Surgery [address] [facility] [address] [place] [address] Marcial Vu Jr., MD [address] [facility] [place] [address] Social History Tobacco Use Types Packs/Day Years Used Date Smoking Tobacco: Former Cigarettes 1 11 0 11/05/1968 - 11/05/1979 Passive Smoke Exposure: Past Smokeless Tobacco: Never Alcohol Use Standard Drinks/Week Comments Yes 14 (1 standard drink = 0.6 oz pu re alcohol) social [facility] Utilities Answer Date Recorded In the past [address], gas, oil, or water company threatened [...] often do you attend chur ch or episcopal services? Never 11/10/2023 Do you belong to [...] slept in a usp (including now)? 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 Evans's physician at [facility], Dr. Schilling, who informed my team that Mr. Evans has had bilateral lower extremity swelling and that bilateral lower extremity duplexes were obtained which appeared to show bilateral lower extremity DVTs. He is hemodynamically stable and his neurologic examination has been unchanged from what it was in the hospital. 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 He does have an IVC filter in place. I also spoke with the Hematology on-call fellow as they saw him when he was an inpatient most recently and have been assisting with anticoagulation recommendations. Would not anticipate a PE with theIVC filter in place. The Hematology fellow is going to discuss this case with her attending and getback to me with recommendations. We aim to minimize the chance of another intraspinal bleed as muchas possible while also preventing blood clots/PEs. Marcial Vu Jr., MD Bridge Crane Operator Department of Orthopaedic Surgery Division of Spine Surgery [facility] [place], [place] R RESOURCES PROGRAM DIRECTOR documented in this encounter Plan of Treatment Not on file documented as of this encounter Visit Diagnoses Not on filedocumented in this encounter Care Teams Can Patcher Relationship Specialty Start Date End Date Rl Medina DO [address] [place] [address] PCP - General 08/09/17 05/25/24 documented as of this encounter
--- OUTSIDE RECORDS SUMMARY | 2024-11-05 19:21 | XMS_ITS | Encounter Summary ---
Author Organization [facility] Healthcare Address [address] [place] [address] Care Team Providers Care Stand Grinder Name Role Phone Rl Medina DO Primary Care Provider Encounter Details Date Type Department Care Team (Late st Contact Info) Description 11/28/2023 Orders Only [facility] [phone] Unknown, Notinfile Social History Tobacco Use Types Packs/Day Years Used Date Smoking Tobacco: Former Cigarettes 1 11 0 11/05/1968 - 11/05/1979 Passive Smoke Exposure: Past Smokeless Tobacco: Never Alcohol Use Standard Drinks/Week Comments Yes 14 (1 standard drink = 0.6 oz pu re alcohol) social [facility] Utilities Answer Date Recorded In the past 12 months has [employer], gas, oil, or water [employer] threatened to shut off services in your [...] attend chur ch or yarsani services? Never 11/10/2023 Do you belong to any clubs o r organizations such as roman catholic groups, unions, fraternal or athletic groups, [...] slept in a custodial (including now)? 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 73 m2 [facility] Comment: Interpretive Data Reference Interval Normal ?>/= [...] was last reviewed 2021. Testing performed by: [facility], [address], [place]., [address] Blood 11/28/2023 7:15 AM BACK [employer] 11/28/2023 12:55 PM BACK [employer] us Notinfile Unknown LAB BLOOD ORDERABLES Final Res ult [facility] [place] [address] * (ABNORMAL) CS BASIC METABOLIC PANEL (11/28/2023 7:15 AM BACK FE[employer]) Sodium 132(L) 135 - 145 mmol/L [facility] Comment:Testing performed by : [facility], [address] [place] [address], [id number] Potassium, pl 4.9 3.3 - 4.9 mmol/L [facility] Comment:Testing performed by : [facility], [address] [place] [address], [address] Chloride 98 97 - 110 mmol/L [facility] Comment:Testing performed by : [facility], [address] [place] [address], [id number] CO2 23 22 - 32 mmol/L [facility] Comment:Testing performed by : [facility], [address] [facility], [address] Anion gap 11 2 - 15 mmol/L [facility] Comment:Testing performed by : [facility], [address] [facility], [address] BUN 36(H) 6 - 25 mg/dL [facility] Comment:Testing performed by : [facility], [address] [place] [address], [address] Creatinine 1.09 0.80 - 1.30 mg/dL [facility] Comment:Testing performed by : [facility], [address] [place] [address], [id number] Calcium 9.3 8.5 - 10.3 mg/dL [facility] Comment:Testing performed by : [facility], [address] [place] [address], [id number] Blood 11/28/2023 7:15 AM BACK [employer]ER [employer] 11/28/2023 12:47 PM BACK [employer] us Notinfile Unknown LAB BLOOD ORDERABLES Final Res ult Performing Organization Address [facility] Co de Phone Number [facility] [place] [address] * CS GLUCOSE (11/28/2023 7:15 AM BACK FEEDER [employer]) [facility] Signature Glucose 113 70 - 199 mg/dL [facility] Comment: Interpretive Data Fasting glucose >/= 126 [...] was last revised 2022. Testing performed by: [facility], [address] [facility], [place]., [address] Blood 11/28/2023 7:15 AM BACK [employer] 11/28/2023 12:47 PM [employer] us Notinfile Unknown LAB BLOOD ORDERABLES Final Res ult Performing Organization Address [facility] de Phone Number [facility] [place] [address] documented in this encounter Visit Diagnoses Not on filedocumented in this encounter Care Teams Stand Grinder Relationship Specialty Start Date End Date Rl Medina DO [address] [place] [address] PCP - General 08/09/17 05/25/24 documented as of this encounter
--- OUTSIDE RECORDS SUMMARY | 2024-11-05 19:21 | XMS_ITS | Encounter Summary ---
Author Organization [facility] Address [address] [facility] [address] [place] [address] Phone Care Team Providers Care Windows Administrator Name Role Phone Rl Medina DO Primary Care Provider [phone] Encounter Details Date Type Department Care Team (Late st Contact Info) Description 11/29/2023 Documentation [facility] Orthopaedic Surgery [address] [facility] 2nd Floor [address] [place] [address] Alonso Schilling DO [address] [place] [address] Social History Tobacco Use Types Packs/Day Years Used Date Smoking Tobacco: Former Cigarettes 1 11 0 11/05/1968 - 11/05/1979 Passive Smoke Exposure: Past Smokeless Tobacco: Never Alcohol Use Standard Drinks/Week Comments Yes 14 (1 standard drink = 0.6 oz pu re alcohol) social [facility] Utilities Answer Date Recorded In the past 12 months has [employer], gas, oil, or water [employer] threatened to shut off services in your [...] week 11/30/2023 How often do you attend [facility] or yazidism services? 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 Spoke with patient, family/friends, and Hematology. Preference for direct admission to [facility] for workup/evaluation by vascular surgery and Hematology. Planned for direct admission. 11/29: Patient awake, alert, and appearing clinically stable. Planning for direct admission today Medications (18) Active Scheduled: (13) acyclovir 400 mg Tab 400 mg 1 tab, Oral, BID, Start 11/16/23 21:00:00 SUPERVISOR PLEATING bisacodyl 10 mg Supp 10 mg 1 supp, Per rectum, QHS, Start 11/17/23 21:00:00 SUPERVISOR PLEATING cholecalciferol (vitamin D3) 125 mcg (5000 units) tab 125 mcg 1 tab, Oral, QBREAKFAST, Start 11/17/23 7:30:00 SUPERVISOR PLEATING diltiazem 240 mg/24 hours ERCap 240 mg 1 cap, Oral, BID, Start 11/16/23 21:00:00 SUPERVISOR PLEATING gabapentin 300 mg Cap 600 mg 2 cap, Oral, q8hr, Start 11/16/23 14:00:00 SUPERVISOR PLEATING insulin lispro 100 units/mL (3mL MDV) SSI Standard, Subcutaneous, WMHS, Start 11/16/23 17:00:00 SUPERVISOR PLEATING levETIRAcetam 500 mg Tab 1,000 mg 2 tab, Oral, BID, Start 11/16/23 21:00:00 SUPERVISOR PLEATING loratadine 10 mg Tab 10 mg 1 tab, Oral, Daily, Start 11/17/23 9:00:00 SUPERVISOR PLEATING nitrofurantoin macrocrystals-monohydrate 100 mg Cap 100 mg 1 cap, Oral, BID, Start 11/26/23 21:27:00 SUPERVISOR PLEATING, Stop 12/03/23 20:59:00 SUPERVISOR PLEATING nystatin 100,000 units/g Topical Powder (15gm Bulk) 1 tasha, Topical, BID, Start 11/18/23 21:00:00 SUPERVISOR PLEATING pantoprazole [address] Tab 40 mg 1 tab, Oral, Before breakfast, Start 11/17/23 7:00:00 SUPERVISOR PLEATING psyllium 3.4gm in 5.8gm SF Packet Powder-Pkt (1EA UD) 3.4 gm 1 packet, Oral, BID, Start 11/26/23 21:00:00 SUPERVISOR PLEATING tamsulosin 0.4 mg Oral Cap 0.8 mg 2 cap, Oral, QDINNER, Start 11/16/23 17:00:00 SUPERVISOR PLEATING Continuous: (0) PRN: (5) acetaminophen 500 mg Tab 1,000 mg 2 tab, Oral, q6hr, Start 11/26/23 11:23:00 SUPERVISOR PLEATING cyclobenzaprine 5 mg Tab 5 mg 1 tab, Oral, TID, Start 11/16/23 13:20:00 SUPERVISOR PLEATING docusate-senna 50 mg-8.6 mg Tab 2 tab, Oral, BID, Start 11/21/23 16:07:00 SUPERVISOR PLEATING glucagon 1 mg Powder Injection Kit 1 mg 1 EA, Subcutaneous, As Indicated, Start 11/16/23 13:42:00 SUPERVISOR PLEATING traMADol 50 mg Tab 50 mg 1 tab, Oral, q4hr, Start 11/26/23 11:23:00 SUPERVISOR PLEATING Examination consistent with the following: Vital Signs (last 24 hrs) Last Charted Temp Oral 98.4 DegF (NOV 29 05:16) Heart Rate Peripheral 75 bpm (NOV 29 04:33) Resp Rate 16 br/min (NOV 29 04:33) SBP 109 mmHg (NOV 29 04:33) DBP 69 mmHg (NOV 29 04:33) SpO2 97 % (NOV 29 04:33) HEENT: NCAT, primary conjugate gaze Cardio: BLE appear well perfused, warm to touch Pulm: Comfortable on RA Neurologic: Grossly consistent with paraplegia Assessment: - Presentation is concerning for the following potentially life threatening illnesses: 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 Plan: - Transfer patient to acute care for emergent evaluation today (11/29) as direct admit - Consider CT for evaluation of clots burden/IVCF and evaluation by vascular surgery. Hematology was willing to see as well if admitted. Below is the most recent a/p from progress note: #. Paraplegia - S/p T5-L5 laminectomies w/hematoma evacuation and lumbar dural repair on 11/08/23 - Precautions: Spinal precautions (No bending/twisting, lifting more than 10 lbs. TLSO when OOB) - Therapy: PWC (Group 3) - Follow Up: Ortho Spine, FRANGY #. Bilateral Pulmonary Embolisms #. DVTs - CT PE on 11/09 with improved clot burden. LED's negative on 11/08. IVC filter placed on 11/09. Patient to ask Heme/Ortho spine about removal date iso multiple clots - Hematology: Plan to start prophylactic dosing of lovenox 11/29 (Eventually transition to therapeutic dosing after outpatient follow-ups with both Dr. Vu and Hematology) - Patient w/ bilateral LE edema at [facility]IS[facility]. BLE Duplex w/ multiple clots 11/23. Reports [...] (11/29) for evaluation by vascular and heme #. Neurogenic Bladder, suspected #. Urinary Incontinence [...] be seen by urology while inpatient at [facility] for exchange in setting of UTI, since [...] supplement #. DVT Ppx/Tx: Hold PPx until 11/29. No AC until follow up with Ortho and Heme #. Precautions: Spinal (including TLSO OOB) #. Lines/Tubes/Drains: Sofia catheter (placed 11/19/23) #. Code Status: Full code #. Discharge Plannin/1 #. Appointments: Spine - 12/03 Urology - 12/13 Heme - 12/14 NSGY - 12/24 RVISOR PLEATING documented in this encounter Plan of Treatment Not on file documented as of this encounter Visit Diagnoses Not on filedocumented in this encounter Care Teams Windows Administrator Relationship Specialty Start Date End Date Rl Medina DO [address] [place] [address] PCP - General 08/09/17 05/25/24 documented as of this encounter
--- OUTSIDE RECORDS SUMMARY | 2024-11-05 19:21 | XMS_ITS | Encounter Summary ---
Author Organization [facility] Address [address] [facility] [address] [place] [address] Phone Care Team Providers Care Plastic Duplicator Name Role Phone Rl Medina DO Primary Care Provider Encounter Details Date Type Department Care Team (Late st Contact Info) Description 11/28/2023 Documentation [facility] Orthopaedic Surgery [address] [facility] 2nd Floor [address] [place] [address] Alonso Schilling DO [address] [place] [address] Social History Tobacco Use Types Packs/Day Years Used Date Smoking Tobacco: Former Cigarettes 1 11 0 11/05/1968 - 11/05/1979 Passive Smoke Exposure: Past Smokeless Tobacco: Never Alcohol Use Standard Drinks/Week Comments Yes 14 (1 standard drink = 0.6 oz pu re alcohol) social [facility] Utilities Answer Date Recorded In the past 12 months has [employer], gas, oil, or water [employer] threatened to shut off services in [...] week 11/30/2023 How often do you attend [facility] or anabaptist services? Never 11/30/2023 Do you belong to [...] slept in a chcf (including now)? 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
--- OUTSIDE RECORDS SUMMARY | 2024-11-05 19:21 | XMS_ITS | Encounter Summary ---
Author Organization [facility] Address [address] [place] [address] Phone Care Team Providers Care Raw Silk Grader Name Role Phone Rl Medina DO Primary Care Provider Encounter Details Date Type Department Care Team (Late st Contact Info) Description 11/30/2023 7:05 AM NEWSPAPER DELIVERER Ancillary Procedure [facility] IP [address] [facility] [address] [place] [address] Social History Tobacco Use Types Packs/Day Years Used Date Smoking Tobacco: Former Cigarettes 1 11 0 11/05/1968 - 11/05/1979 Passive Smoke Exposure: Past Smokeless Tobacco: Never Alcohol Use Standard Drinks/Week Comments Yes 14 (1 standard drink = 0.6 oz pu re alcohol) social [facility] Utilities Answer Date Recorded In the past 12 months has [employer], gas, oil, or water [employer] threatened to shut off services in [...] attend chur ch or christian services? Never 11/30/2023 Do you belong to any clubs o r organizations such as confucianism groups, unions, fraternal or athletic groups, or [...] in a long term (including now)? 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 - Department of Vascular Surgery, Vascular Laboratory [address] [place] [address] Lower Extremity Venous Ultrasound Report Patient Name: HIRA EVANS WILLIAM : 1950 (73y 5m) Study Date: 11/30/2023 7:23:48 AM Gender: M Tech: Location: [id number] Ref Provider: GABRIEL ESCOBAR ?Quality: Adequate Order Provider: GABRIEL ESCOBAR PROCEDURES: Vascular Report: Venous Duplex imaging was performed bilaterally in the lower extremities. The common femoral, femoral, popliteal, posterior tibial, peroneal veins were evaluated for patency, spontaneity and phasicity with Doppler, compression and augmentation maneuvers. Great saphenous vein proximal at the junction was evaluated with compression maneuvers. INDICATIONS: Swelling lower extremity, bilateral. FINDINGS: Performing Promotions Producer: Josiane Chance RVT. Right: Duplex scan reveals [...] above. Electronically Signed By: Shayan Jameson MD [facility] 2023-12-01 23:25:38 NEWSPAPER DELIVERER Procedure Note Shayan Jameson MD - 12/01/[address] [facility] - Department of Vascular Surgery,Vascular Laboratory [address] [place] [address] Lower Extremity Venous Ultrasound Report Patient Name: HIRA EVANS WILLIAM : 1950 (73y 5m) Study Date: 11/30/2023 7:23:48 AM Gender: M Tech: Location: [id number] Ref Provider: GABRIEL ESCOBAR Quality: Adequate Order Provider: GABRIEL ESCOBAR PROCEDURES: Vascular Report: Venous Duplex imaging was performed bilaterally in the lower extremities.The common femoral, femoral, popliteal, posterior tibial, peroneal veins wereevaluated for patency, spontaneity and phasicity with Doppler, compression and augmentationmaneuvers. Great saphenous vein proximal at the junction was evaluated with compressionmaneuvers. INDICATIONS: Swelling lower extremity, bilateral. FINDINGS: Performing Promotions Producer: Josiane Chance RVT. Right: Duplex scan reveals [...] above date to Vibha Ramirez MD. Time :00. CONCLUSIONS: 1. There is acute deep vein [...] above. Electronically Signed By: Shayan Jameson MD [facility] 2023-12-01 23:25:38 NEWSPAPER DELIVERER Gabriel Escobar MD IM US PROCEDURES Final R esult documented in this encounter Visit Diagnoses Not on filedocumented in this encounter Care Teams Raw Silk Grader Relationship Specialty Start Date End Date Rl Medina DO [address] [place] [address] PCP - General 08/09/17 05/25/24 documented as of this encounter
--- OUTSIDE RECORDS SUMMARY | 2024-11-05 19:21 | XMS_ITS | Encounter Summary ---
Author Organization [facility] Address [address] [place] [address] Phone Care Team Providers Care Group Cio Name Role Phone Rl Medina DO Primary Care Provider Encounter Details Date Type Department Care Team (Late st Contact Info) Description 11/23/2023 Documentation [facility] Orthopaedic Surgery [address] [facility] [address] [place] [address] Marcial Vu Jr., MD [address] [facility] [place] [address] Social History Tobacco Use Types Packs/Day Years Used Date Smoking Tobacco: Former Cigarettes 1 11 0 11/05/1968 - 11/05/1979 Passive Smoke Exposure: Past Smokeless Tobacco: Never Alcohol Use Standard Drinks/Week Comments Yes 14 (1 standard drink = 0.6 oz pu re alcohol) social [facility] Utilities Answer Date Recorded In the past 12 months has [employer] electric, gas, oil, or water company threatened [...] attend chur ch or gnosticism services? Never 11/10/2023 Do you belong to [...] [facility] 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 Evans's bilateral lower extremity DVTs. We both agree thatthe risk of anticoagulation when he is just over 2 weeks out from his large spinal decompression surgery which was performed for a large intraspinal bleed is extremely high, and outweighs the risk ofa clinically meaningful PE since he does have an IVC filter in place. I also spoke with Mr. Evans, his , Val, and their close family friend, Tamar, over the phone. They all are in agreement that they would like to hold off on blood thinners for now given his prior catastrophic spinal bleed and neurologic injury. They specifically stated that they would rather risk a life- threatening PE than another intraspinal bleed which could potentially threaten his upper extremity and/or respiratory function, etc. We will hold off on any anticoagulation at this time and we will see him back at his routine follow-up appointment on December 03, 2023 or earlier if any issues arise. They are happy with this plan. All questions were answered. I also spoke with his rehab facility doctor, Dr. Schilling, and notified them of these plans. Marcial Vu Jr., MD Mechanic Department of Orthopaedic Surgery Division of Spine Surgery [facility] [place], [place] RINTENDENT TRANSMISSION documented in this encounter Plan of Treatment Not on file documented as of this encounter Visit Diagnoses Not on filedocumented in this encounter Care Teams Group Cio Relationship Specialty Start Date End Date Rl Medina DO [address] [place] [address] PCP - General 08/09/17 05/25/24 documented as of this encounter
--- OUTSIDE RECORDS SUMMARY | 2024-11-05 19:22 | XMS_ITS | Encounter Summary ---
Author Organization [facility] Healthcare Address [address] [place] [address] Care Team Providers Care Plate Fitter Name Role Phone Rl Medina DO Primary Care Provider Reason for Visit * Reason Comments Blood in Urine Encounter Details Date Type Department Care Team (Late st Contact Info) Description 11/19/2023 2:09 PM SPINAL SURGEON - 11/19/2023 7:38 PM SPINAL SURGEON Emergency [facility] Emergency Department [address] [place] [id number] Mary Costa MD [address] [facility] [phone] [place] [address] Ruperto Hitchcock MD [address] [place] [address] Hematuria, unspecified type (Primary Dx); Displacement of Sofia catheter, initial encounter (HCC) Discharge Disposition: Discharge to home or [...] Recorded In the past 12 months has [employer], gas, oil, or water [employer] threatened to shut off services in your [...] often do you attend chur ch or taoist services? 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 Not on file Not on file Not on file documented as of this encounter Last Filed Vital Signs Vital Sign Reading Time Taken Comments Blood Pressure 127/57 11/19/2023 7:00 PM SPINAL SURGEON Pulse 71 11/19/2023 7:00 PM SPINAL SURGEON Temperature 36.3 ??C (97.3 ??F) 11/19/2023 2:10 PM CS T Respiratory Rate 18 11/19/2023 5:47 PM SPINAL SURGEON Oxygen Saturation 94% 11/19/2023 7:00 PM SPINAL SURGEON Inhaled Oxygen Concentration - - Weight 81.6 kg (180 lb) 11/19/2023 2:10 PM SPINAL SURGEON Height 172.7 cm (5' 8 ) 11/19/2023 2:10 PM SPINAL SURGEON Body Mass Index 27.37 11/19/2023 2:10 PM SPINAL SURGEON documented in this encounter Discharge Instructions * Discharge Instructions* Marta Hurt DO - 11/19/2023 5:40 PM SPINAL SURGEON You were seen today with concerns for blood in your urine. Your sofia was found to be in the incorrect place. You were seen by the ED and urology teams today. Urology replaced the sofia catheter. Keep this in place for 10 days. You may then trial voiding. Ifhave a successful voiding trial then you may resume intermittent sofia catheterizations. Follow-up with your urologist on 12/13/23 as scheduled. Please return to the ED if you develop any new or worsening pain, worsening blood in your sofia, have decreased urine output, fevers, or other concerns. AL SURGEON AL SURGEON documented in this encounter Medications at Time of Discharge acetaminophen (TYLENOL) 500 mg tabletIndications :Pain Take 1 tablet (500 mg total) by mouth every 6 (six) hours as needed for pain 30 tablet 12/27/2023 ascorbic acid (VITAMIN C ORAL)Indications: supplement Take 1 tablet by mouth 2 (two) times a day acetaminophen 500 mg capsule Take 2 capsules (1,000 mg total) by mouth every 6 (six) hours 11/16/2023 4 acyclovir (ZOVIRAX) 400 mg tabletIndications :Chronic Suppression Take 1 tablet (400 mg total) by mouth 2 (two) times a day 3 06/08/2019 4 cephalexin (KEFLEX) 500 mg capsule Take 1 capsule (500 mg total) by mouth daily as needed (30 minutes prior to dental appt) When pt has procedures gets pre antibiotic r/t history knee replacements 10/09/2022 4 cetirizine (ZyrTEC) 10 mg tabletIndications :Allergic Rhinitis Take 1 tablet (10 mg total) by mouth sign painter before breakfast 4 cholecalciferol (VITAMIN D-3) 5,000 unit capsuleIndication s:Vitamin D Deficiency Take 1 capsule (5,000 Units total) by mouth every morning 4 coenzyme Q10 100 mg capsule Take 1 capsule (100 mg total) by mouth sign painter before breakfast 4 cyclobenzaprine (FLEXERIL) 5 mg tablet Take 1 tablet (5 mg total) by mouth 3 (three) times a day as needed for muscle spasms 90 tablet 10/30/2023 4 DILT-XR 240 mg 24 hr capsuleIndication s:hypertension Take 1 capsule (240 mg total) by mouth 2 (two) times a day 0 05/12/2019 4 enoxaparin (LOVENOX) 40 mg/0.4 mL syringe Inject 0.4 mL (40 mg total) under the skin daily Prophylactic dosing only for lovenox until follow-up with hematology outpatient 0 11/29/2023 4 gabapentin (NEURONTIN) 300 mg capsuleIndication s:Pain Take 1 capsule (300 mg total) by mouth every 8 (eight) hours 90 capsule 10/30/2023 4 irbesartan (AVAPRO) 150 mg tabletIndications :hypertension Take 1 tablet (150 mg total) by mouth every morning 11/17/2023 4 levETIRAcetam (KEPPRA) 1,000 mg tablet Take 1 tablet (1,000 mg total) by mouth 2 (two) times a day 60 tablet 1 10/30/2023 4 Mounjaro 10 mg/0.5 mL pen injectorIndicatio ns:Pre-Diabetic Inject 10 mg under the skin once a week Sunday04/05/2023 4 omeprazole (PriLOSEC) 20 mg capsuleIndication s:Treatment of Non-Bleeding Gastric Disorder,GERD Take 1 capsule (20 mg total) by mouth every morning 4 oxyCODONE (ROXICODONE) 5 mg immediate release tabletIndications :Pain Take 1 tablet (5 mg total) by mouth every 4 (four) hours as needed for pain for up to 5 doses 5 tablet 12/27/2023 4 ramelteon (ROZEREM) 8 mg tabletIndications :Sleep-Onset Insomnia Take 1 tablet (8 mg total) by mouth nightly 4 senna-docusate (PERICOLACE) 8.6-50 mg Take 2 tablets by mouth 2 (two) times a day 11/16/2023 4 tamsulosin (FLOMAX) 0.4 mg extended release capsule Take 2 capsules (0.8 mg total) by mouth daily with dinner 60 capsule 10/30/2023 4 traMADoL (ULTRAM) 50 mg tablet Take 1 tablet (50 mg total) by mouth every 4 (four) hours as needed for pain 42 tablet 11/16/2023 4 documented as of this encounter Discharge Disposition Disposition Code Departure Means Destination Comment s Discharge to home or self care documented in this encounter ED Notes * Veronica Hillman, RN - 11/19/2023 5:54 PM CST Pt going back to Veronica Jacob RN 11/19/23 2440 AL SURGEON * Ruperto Jones MD - 11/19/2023 2:49 PM CST HPI Chief Complaint Patient presents with Blood in Urine HPI Hira Evans is a 73 y.o. male with PMH lumbar spinal surgery complicated by cauda equina syndrome status post L4-5 decompression with paraplegia and post-op cardiac arrest, bilateral PE on Lovenox, prostate cancer s/p prostatectomy, UTI, HTN who presents with chief concern of gross hematuria. Patient is currently in rehab recovering from surgery. He has postoperative weakness and autonomic dysfunction which requires intermittent straight catheterization. This morning at approximately 4:00 a.m. the straight cath did not return any urine so a Sofia catheter was placed with return of woody blood. A bladder scan at the rehab facility showed 600 mL of fluid in the bladder so patient wassent here for further evaluation and management. He denies abdominal pain, penile pain, saddle anesthesia. No fevers, chills, or other infectious symptoms. He is taking all medications as directed, including therapeutic Lovenox. Patient History: Patient Active Problem List Diagnosis Date Noted Kidney stone 11/09/2023 Paralysis of both lower [...] sleep apnea 10/10/2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[facility] ([facility]) 08/07/2019 Presence of right artificial knee joint 10/25/2018 Primary osteoarthritis of left knee 10/25/2018 Localized adiposity 07/17/2018 Knee pain 10/24/2016 Past Medical History: Diagnosis Date Allergic rhinitis Arthritis OA Cancer ([facility]) ([facility]) prostate and melonomia Gastric reflux GERD (gastroesophageal reflux disease) History of melanoma Hypertension Kidney stone Personal history of prostate cancer Pneumonia Seasonal allergies Past Surgical History: Procedure Laterality [...] History Social History Narrative Not on file Physical Exam ED Triage Vitals [11/19/23 1410] Temp Pulse Resp BP SpO2 36.3 ??C (97.3 ??F) 64 18 102/77 100 % Temp src Heart Rate Source Patient Position BP Location FiO2 (%) Oral -- -- -- -- Height Height Method Weight Weight Method 1.727 m (5' 8 ) Stated 81.6 kg (180 lb) Stated Physical Exam Vitals and nursing note reviewed. Exam conducted with a cloth printing back tender present. Constitutional: General: He is awake. He is not in acute distress. Cardiovascular: Rate and Rhythm: Normal rate and regular rhythm. Heart sounds: Normal heart sounds. Pulmonary: Effort: Pulmonary effort is normal. Breath sounds: Normal breath sounds. Abdominal: General: There is distension. Palpations: Abdomen is soft. There is no hepatomegaly or splenomegaly. Tenderness: There is no abdominal tenderness. There is no right CVA tenderness, left CVA tenderness, guarding or rebound. Hernia: No hernia is present. Genitourinary: Comments: Small amount of dried blood from urethral meatus. Woody blood present in Sofia bag. Skin: General: Skin is warm and dry. Neurological: Mental Status: He is alert and oriented to person, place, and time. Cranial Nerves: Cranial nerves 2-12 are intact. Sensory: Sensation is intact. Motor: Weakness (BLE, at baseline) present. Psychiatric: Behavior: Behavior is cooperative. MICHAEL Evans is a 73 y.o. male with PMH as listed above. Patient presented with woody bloodin a Sofia bag and full urinary bladder following placement earlier today. Concern for catheter misplacement. Vitals stable. On therapeutic Lovenox. Labs earlier today demonstrated Hgb 10.2, at baseline. Plan CT AP to assess Sofia location, type & screen. Anticipate Urology consult pending CT. Disposition pending. Medical Decision Making Amount and/or Complexity of Data Reviewed Labs: ordered. Radiology: ordered. Decision-making details documented in ED Course. Risk Prescription drug management. Attending Summary of Care ED Course as of 11/20/23 2142 Time: 11/19 1432 Comment: 73 yo has h/o of spinal decompression surgery c/b spinal hematomas, at rehab, has autonomic complications with decreased ability to void, otherwise neurologically intact. Gets straight cath a few times / day PRN to void. This am tried to straight cath and did not get urine, saw increased urine on US, attempted to place sofia at rehab and got blood w/o urine return. On US, unable to see Sofia balloon. Will CT By: Mary Costa MD Time: 11/19 1441 Comment: I have seen and examined this patient on the day of service. I have reviewed and confirmedthe history, physical exam, laboratory and radiographic data with the house staff as documented in the ED resident note. I have reviewed and discussed my treatment plan with the ED team and other medical/window covering sales consultant staff. Voice recognition software was used to dictate and transcribe parts or all of this document. Despite proofreading, security guard variances and/or typographical errors might have occurred. By: Mary Costa MD Time: 11/19 6949 Comment: Sofia inflated in the proximal urethra, developed L sided hydronephrosis, stent in place but unsure if working given hydro. By: Marta Hurt DO Time: 11/19 2553 Comment: Urology will see pt By: Marta Hurt DO Time: 11/19 1640 Value: CT Abdomen Pelvis W Contrast Comment: IMPRESSION: 1. Interval decreased size of left perinephric hematoma with new left hydronephrosis there are stones in the left proximal ureter. There is a left double J stent in place, however it is unclear if this is working. 2. Sofia catheter in place with the balloon inflated in the proximal bulbar urethra and tip terminating near the vesicourethral anastomosis. By: Marta Hurt, DO Time: 11/19 1653 Comment: Urology placed sofia over wire, recommends keepin in place fof 10 days. Trial of voice to occur after. CIC can resume afterwards if ok. By: Ruperto Hitchcock MD Hematuria, unspecified type Displacement of Sofia catheter, initial encounter (HCC) Ruperto Jones MD Resident 11/20/232141 Cosigned by Mary Costa MD at 11/24/2023 1:55 PM SPINAL SURGEON AL SURGEON AL SURGEON Associated attestation - Mary Costa MD - 11/24/2023 1:55 PM SPINAL SURGEON I have seen and examined this patient on the day of service. I have reviewed and confirmed the history, physical exam, laboratory and radiographic data with the house staff as documented in the ED resident note. I have reviewed and discussed my treatment plan with the ED team and other medical/window covering sales consultant staff. Voice recognition software was used to dictate and transcribe parts or all of this document. Despite proofreading, security guard variances and/or typographical errors might have occurred. * Leila Tanner RN - 11/19/2023 2:13 PM CST Patient arrives from [facility] with woody blood in his urine after a Sofia placement today. Patient hasrecent spine surgery x 2 with cardiac arrest afterwards, bilateral PEs. Patient arrives A&Ox4, GCS 15. Denies any complaints. AL SURGEON * Emily Burciaga RN - 11/19/2023 2:09 PM CST Bed: [facility] Expected date: 11/19/23 Expected time: 12:44 PM Means of arrival: Ambulance Comments: Emily Burciaga RN 11/19/23 1409 AL SURGEON documented in this encounter Miscellaneous Notes * Plan of Care - Latha Rojas RN - 11/19/2023 2:49 PM CST 11/19/23 1442 Type Readmission </= 30 Days? Yes Is this Patient Active with an Outpatient Case Management Program? No (Discharged to [facility]) Record Review of Prior Admission Was this Readmission Planned? No Disposition at Prior Admit D/C Acute rehab (Dishchared 11/16/2023 to [facility]) Was the D/C Location what the Care Team Recommended? Yes If 6-Click Score on Previous Admission was < 17 was PT/OT Ordered? (Discharge instructions note Activity restriction/ discharged to rehab) High Risk Medications Opioids;Anticoagulants Is Patient ACO No Patient Interview Did Patient have assigned PCP on Discharge? Yes Was Appointment made on Index Discharge? No In Patient's own words, what led to return to Hospital Per chart : presents hematuria /straight cath at facility [facility] notable for ostop cardiac arrest and b/l PE on therapeutic anticoagulation, prostate CA s/p prostatectomy, GERD, obesity, CKD, UTI, melanoma, recent discharge 3 days ago for cauda equina syndrome postoperative from L4-L5 decompression, TLIF, and PSF here w/ hematuria Was Patient Discharged to Home No AL SURGEON * ED Re-evaluation Note - Marta Hurt DO - 11/19/2023 2:28 PM CST ED Re-evaluation TRANSITION OF CARE: I, Marta Hurt, DO, am taking signout. I have reviewed all pertinent vital signs, allergies, and history available in the chart. Summary: 73 y.o. malePMH notable for ostop cardiac arrest and b/l PE on therapeutic anticoagulation, prostate CA s/p prostatectomy, GERD, obesity, CKD, UTI, melanoma, recent discharge 3 days ago for cauda equina syndrome postoperative from L4-L5 decompression, TLIF, and PSF here w/ hematuria, h/o pr ostate ca s/p prostatectomy here w/ blood in sofia. Intermittent cath at At 5 tried to cath, and got woody blood, no sofia Bedside US showed sig urine in bladder; no balloon in bladder tho Pt in no distress Pending: ct scan, uro consult Dispo: pending uro recs ED Course as of 11/20/23 0132 Time: 11/19 1432 Comment: 73 yo has h/o of spinal decompression surgery c/b spinal hematomas, at rehab, has autonomic complications with decreased ability to void, otherwise neurologically intact. Gets straight cath a few times / day PRN to void. This am tried to straight cath and did not get urine, saw increased urine on US, attempted to place sofia at rehab and got blood w/o urine return. On US, unable to see Sofia balloon. Will CT By: Mary Costa MD Time: 11/19 1441 Comment: I have seen and examined this patient on the day of service. I have reviewed and confirmedthe history, physical exam, laboratory and radiographic data with the house staff as documented in the ED resident note. I have reviewed and discussed my treatment plan with the ED team and other medical/window covering sales consultant staff. Voice recognition software was used to dictate and transcribe parts or all of this document. Despite proofreading, security guard variances and/or typographical errors might have occurred. By: Mary Costa MD Time: 11/19 1239 Comment: Sofia inflated in the proximal urethra, developed L sided hydronephrosis, stent in place but unsure if working given hydro. By: Marta Hurt, Time: 11/19 7064 Comment: Urology will see pt By: Marta Hurt, Time: 11/19 1640 Value: CT Abdomen Pelvis W Contrast Comment: IMPRESSION: 1. Interval decreased size of left perinephric hematoma with new left hydronephrosis there are stones in the left proximal ureter. There is a left double J stent in place, however it is unclear if this is working. 2. Sofia catheter in place with the balloon inflated in the proximal bulbar urethra and tip terminating near the vesicourethral anastomosis. By: Marta Hurt, Time: 11/19 7674 Comment: Urology placed sofia over wire, recommends keepin in place fof 10 days. Trial of voice to occur after. CIC can resume afterwards if ok. By: Stickles, MD Licha Baltazar Christianne Lauren, DO Resident 11/20/23 0132 AL SURGEON * ED Pre-Arrival Note - Emily Burciaga RN - 11/19/2023 12:44 PM SPINAL SURGEON Pre-Arrival Note Pt coming for eval of woody blood in sofia, will need urology eval, coming by ambulance Emily Burciaga RN AL SURGEON documented in this encounter Plan of Treatment Not on file documented as of this encounter Procedures Procedure Name Priority Date/Time Associated Diagnosis Comments CT ABDOMEN PELVIS W CONTRAST ED 11/19/2023 3:33 PM SPINAL SURGEON TYPE AND SCREEN STAT 11/19/2023 2:56 PM SPINAL SURGEON documented in this encounter Results * CT Abdomen Pelvis W Contrast (11/19/2023 3:33 PM SPINAL SURGEON) Anatomical Region Laterality Modality Body N/A Computed Tomogra phy 11/19/2023 4:03 PM SPINAL SURGEON Impressions 11/19/2023 4:06 PM SPINAL SURGEON 1. ??Interval decreased size of left perinephric hematoma with new left hydronephrosis there are stones in the left proximal ureter. There is a left double J stent in place, however it is unclear if this is working. 2. Sofia catheter in place with the balloon inflated in the proximal bulbar urethra and tip terminating near the vesicourethral anastomosis. The Non Critical results were discussed with Dr. Hurt by Dr. Stahl on 11/19/2023 at 1550 Dictated by: Tobias Stahl MD The radiology attending physician has personally reviewed this study, and had reviewed and/or edited this written report and agrees with it. Electronically signed by: Elsy Fields M.D. Narrative 11/19/2023 4:06 PM SPINAL SURGEON EXAMINATION: ??Computed tomography of the abdomen and pelvis with intravenous contrast HISTORY: Status post L4-L5 decompression with autonomic dysfunction requiring intermittent catheterization, Sofia placed this morning with gross hematuria TECHNIQUE: ??Transaxial computed tomographic images of the abdomen and pelvis were obtained with intravenous contrast according to the standard protocol after the uneventful administration of 67 mL Opti-Ray 350 intravenous contrast. COMPARISON: CT from 10/23/2023 FINDINGS: Visualized lung bases are clear. ??No pleural effusion or focal consolidation. ??Heart size is normal. Numerous scattered hypoattenuating lesions in the liver, which are unchanged, and consistent with simple cysts. Gallbladder is normal. Spleen, pancreas, and adrenal glands are normal. There is a left perinephric hematoma that is decreased in size compared to prior. Interval development of left-sided hydronephrosis. There is a double-J stent extending from the left renal pelvis into the urinary bladder. There are additional small layering stones along the dependent portion of the proximal left ureter. Unchanged punctate nonobstructive right upper pole renal stone. The Sofia catheter balloon is expanded within the proximal bulbar urethra, and the tip is near the vesicourethral anastomosis. ??Status post prostatectomy with numerous brachytherapy seeds in place. The bladder is thin-walled, and there is a small amount of gas within the urinary bladder. There is no dilation or thickening of the small or large bowel. ??No pneumoperitoneum or free fluid. ??No lymphadenopathy within the abdomen or pelvis. Unchanged instrumented combined anterior and posterior spinal fusion of L4-L5. ??No suspicious osseous lesion. Procedure Note Elsy Fields MD - 11/19/2023 EXAMINATION: Computed tomography of the abdomen and pelvis with intravenous contrast HISTORY: Status post L4-L5 decompression with autonomic dysfunction requiring intermittent catheterization, Sofia placed this morning with gross hematuria TECHNIQUE: Transaxial computed tomographic images of the abdomen and pelvis were obtained with intravenous contrast according to the standard protocol after the uneventful administration of 67 mL Opti-Ray 350 intravenous contrast. COMPARISON: CT from 10/23/2023 FINDINGS: Visualized lung bases are clear. No pleural effusion or focal consolidation. Heart size is normal. Numerous scattered hypoattenuating lesions in the liver, which are unchanged, and consistent with simple cysts. Gallbladder is normal. Spleen, pancreas, and adrenal glands are normal. There is a left perinephric hematoma that is decreased in size compared to prior. Interval development of left-sided hydronephrosis. There is a double-J stent extending from the left renal pelvis into the urinary bladder. There are additional small layering stones along the dependent portion of the proximal left ureter. Unchanged punctate nonobstructive right upper pole renal stone. The Sofia catheter balloon is expanded within the proximal bulbar urethra, and the tip is near the vesicourethral anastomosis. Status post prostatectomy with numerous brachytherapy seeds in place. The bladder is thin-walled, and there is a small amount of gas within the urinary bladder. There is no dilation or thickening of the small or large bowel. No pneumoperitoneum or free fluid. No lymphadenopathy within the abdomen or pelvis. Unchanged instrumented combined anterior and posterior spinal fusion of L4-L5. No suspicious osseous lesion. IMPRESSION: 1. Interval decreased size of left perinephric hematoma with new left hydronephrosis there are stones in the left proximal ureter. There is a left double J stent in place, however it is unclear if this is working. 2. Sofia catheter in place with the balloon inflated in the proximal bulbar urethra and tip terminating near the vesicourethral anastomosis. The Non Critical results were discussed with Dr. Hurt by Dr. Stahl on 11/19/2023 at 1550 Dictated by: Tobias Stahl MD The radiology attending physician has personally reviewed this study, and had reviewed and/or edited this written report and agrees with it. Electronically signed by: Elsy Fields M.D. Ruperto Jones MD IMG CT PROCEDURES Final Resul t * Type and screen (11/19/2023 2:56 PM SPINAL SURGEON) Jigna, indirect Negative ABO Rh O Positive [facility] Blood 11/19/2023 2:56 PM SPINAL SURGEON 11/19/2023 3:15 PM SPINAL SURGEON Narrative [facility] - 11/19/2023 4:06 PM SPINAL SURGEON Has the patient had Daratumumab or Isatuximab in the past 6 months?->Unknown Ruperto Jones MD LAB BLOOD BANK TEST ORDERABLE S Final Result [facility] Department [place] [address] documented in this encounter Visit Diagnoses Diagnosis Hematuria, unspecified type- Primary Displacement of Sofia catheter, initial encounter ([facility]) documented in this encounter Administered Medications Inactive Administered Medications - up to 3 most recent administrations Medication Order MAR Action Action Date Dose Rate Site ioversoL (OPTIRAY 350) syringe 75 mL 75 mL, intravenous, Once in imaging, contrast, Starting on 11/19/23 at 1533, For 1 dose Contrast Given 11/19/2023 3:34 PM SPINAL SURGEON 67 mL documented in this encounter Active and Recently Administered Medications Times are shown in SPINAL SURGEON. PRN Medication Order 11/17/2023 11/18/2023 11/19/2023 ioversoL (OPTIRAY 350) syringe 75 mL (COMPLETED) 75 mL, intravenous, Once in imaging, contrast, Starting on 11/19/23 at 1533, For 1 dose 1534 (Contrast Given - Provider: RT Jonathan) documented in this encounter Orders Medications Ordered That Armando ht Not Have Been Administered Count Last Ordered Date First Ordered Date ioversoL (OPTIRAY 350) syringe 75 mL 1 11/05 documented in this encounter Care Teams Plate Fitter Relationship Specialty Start Date End Date Rl Medina DO [address] [place] [address] PCP - General 08/09/17 05/25/24 documented as of this encounter
--- OUTSIDE RECORDS SUMMARY | 2024-11-05 19:22 | XMS_ITS | Encounter Summary ---
Author Organization [facility] Address [address] [facility] [address] [place] [address] Phone Care Team Providers Care Transition Advisor Name Role Phone Rl Medina DO Primary Care Provider Encounter Details Date Type Department Care Team (Late st Contact Info) Description 11/19/2023 Documentation [facility] Orthopaedic Surgery [address] [facility] [address] [place] [address] Alonso Schilling DO [address] [place] [address] Social History Tobacco Use Types Packs/Day Years Used Date Smoking Tobacco: Former Cigarettes 1 11 0 11/05/1968 - 11/05/1979 Passive Smoke Exposure: Past Smokeless Tobacco: Never Alcohol Use Standard Drinks/Week Comments Yes 14 (1 standard drink = 0.6 oz pu re alcohol) social [facility] Utilities Answer Date Recorded In the past 12 months has [employer], gas, oil, or water [place] threatened to shut off services in your [...] week 11/10/2023 How often do you attend [facility] or jehovah's witness services? Never 11/10/2023 Do you belong to any clubs o r organizations such as religious groups, unions, fraternal or athletic groups, or [...] slept in a long-term (including now)? 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 Multiple attempts at cathing without success. Harris place, demonstrating milli blood and inability to flush. Spoke with attending regarding appropriate course of action, and decision made to evaluate in expedited fashion. Patient was evaluated in the morning by team, appearing clinically stable. Medications (17) Active Scheduled: (14) acetaminophen 500 mg Tab 1,000 mg 2 tab, Oral, q6hr, Start 11/16/23 18:00:00 SUPERVISING LAW ENFORCEMENT ANALYST acyclovir 400 mg Tab 400 mg 1 tab, Oral, BID, Start 11/16/23 21:00:00 SUPERVISING LAW ENFORCEMENT ANALYST bisacodyl 10 mg Supp 10 mg 1 supp, Per rectum, QHS, Start 11/17/23 21:00:00 SUPERVISING LAW ENFORCEMENT ANALYST cholecalciferol (vitamin D3) 125 mcg (5000 units) tab 125 mcg 1 tab, Oral, QBREAKFAST, Start 11/17/23 7:30:00 SUPERVISING LAW ENFORCEMENT ANALYST diltiazem 240 mg/24 hours ERCap 240 mg 1 cap, Oral, BID, Start 11/16/23 21:00:00 SUPERVISING LAW ENFORCEMENT ANALYST docusate-senna 50 mg-8.6 mg Tab 2 tab, Oral, BID, Start 11/16/23 21:00:00 SUPERVISING LAW ENFORCEMENT ANALYST gabapentin 300 mg Cap 600 mg 2 cap, Oral, q8hr, Start 11/16/23 14:00:00 SUPERVISING LAW ENFORCEMENT ANALYST insulin lispro 100 units/mL (3mL MDV) sliding scale, Subcutaneous, WMHS, Start 11/16/23 17:00:00 SUPERVISING LAW ENFORCEMENT ANALYST levETIRAcetam 500 mg Tab 1,000 mg 2 tab, Oral, BID, Start 11/16/23 21:00:00 SUPERVISING LAW ENFORCEMENT ANALYST loratadine 10 mg Tab 10 mg 1 tab, Oral, Daily, Start 11/17/23 9:00:00 SUPERVISING LAW ENFORCEMENT ANALYST losartan 50 mg Tab 50 mg 1 tab, Oral, Daily, Start 11/17/23 9:00:00 SUPERVISING LAW ENFORCEMENT ANALYST nystatin 100,000 units/g Topical Powder (15gm Bulk) 1 tasha, Topical, BID, Start 11/18/23 21:00:00 SUPERVISING LAW ENFORCEMENT ANALYST pantoprazole [address] Tab 40 mg 1 tab, Oral, Before breakfast, Start 11/17/23 7:00:00 SUPERVISING LAW ENFORCEMENT ANALYST tamsulosin 0.4 mg Oral Cap 0.8 mg 2 cap, Oral, QDINNER, Start 11/16/23 17:00:00 SUPERVISING LAW ENFORCEMENT ANALYST Continuous: (0) PRN: (3) cyclobenzaprine 5 mg Tab 5 mg 1 tab, Oral, TID, Start 11/16/23 13:20:00 SUPERVISING LAW ENFORCEMENT ANALYST glucagon 1 mg Powder Injection Kit 1 mg 1 EA, Subcutaneous, As Indicated, Start 11/16/23 13:42:00 SUPERVISING LAW ENFORCEMENT ANALYST traMADol 50 mg Tab 50 mg 1 tab, Oral, q4hr, Start 11/16/23 13:24:00 SUPERVISING LAW ENFORCEMENT ANALYST Examination consistent with the following: Vital Signs (last 24 hrs) Last Charted Temp Oral 97.5 DegF (NOV 19:) Heart Rate Peripheral 65 bpm (NOV 19:) Resp Rate 20 br/min (NOV 19:) SBP 116 mmHg (NOV 19:) DBP 71 mmHg (NOV 19:) SpO2 100 % (NOV 19:) HEENT: NCAT, Primary conjugate gaze Cardio: Appears well perfused Pulm: Comfortable on RA Neurologic: BLE weakness Assessment: Urinary retention in setting of SCI with inability to cath. Harris eventually place with milli blood A comprehensive evaluation for those illnesses cannot be performed safely in acute rehabilitation setting. ED could consider urology consult Plan: -Transfer patient to acute care for emergent evaluation -RN power reactor supervisor to stay at bedside until transfer -Called [facility] emergency department at 12:43pm time and spoke wit systems integration advisor. 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 Previously had been ambulating with walker since 10/30/23discharge. Transferred to [facility], MRI with longitudinally extending dorsal epidural and subdural collection T5-T6 through L5-S1 causing severe canal stenosis and cauda equina compression. Underwent T5-L5 epidural hematoma evac (NSGY consulted for intraop durotomy repair). IVCF placed 11/[address] PE showing decreased clot burden. Patient s/p dex and had wound vac removed prior to discharge from [facility]. Discharged to [facility] on 11/16 instable condition. Patient seen and evaluated by IPR team on 11/16 #. Paraplegia - S/p T5-L5 laminectomies w/hematoma evacuation and lumbar dural repair on 11/08/23 - Precautions: TLSO when OOB - Follow Up: Ortho Spine, NSGY - Admit Labs: WBC 13.4, hemoglobin 9.1 hematocrit 27.1 #. Neurogenic Bladder, suspected #. Urinary Incontinence - Urinary leakage at baseline per patient. Wears depends at home - Tamsulosin - In the setting of new SCI, bladder pattern may vary from baseline - 11/19: Patient cathed successful around 6am. Cathing was attempted again around 10am without success (multiple BS showed approximately 500cc). Harris eventually placed, demonstrating milli blood. After speaking with attending, decision was made for transfer for expedited urologic assessment. #. Bilateral Pulmonary Embolisms - CT PE on 11/09 with improved clot burden. LED's negative on 11/08 - IVC filter placed on 11/09. Determine removal date - Hematology: Recommend holding therapeutic AC x2 weeks - Start prophylactic dosing if lovenox 11/29 (Eventually transition to therapeutic dosing after outpatient follow-ups with both Dr. Vu and Hematology) - Follow up Hematology #. Diabetes - Possibly switch to home medication (Mounjaro) - Provide diabetes education if needed - SSI. CTM glucose and SSI #. Acute on Chronic Pain - Scheduled: Tylenol, gabapentin - PRN: Tramadol, cyclobenzaprine #. ID - Acyclovir #. Seizure History - Keppra 1000mg BID. Consider neurology follow up #. UTI, complex - Required stent placement by urology. Urology follow up #. GERD - Omeprazole switched to pantoprazole #. HTN - irbesartan switched to losartan. Diltiazem. Held CoQ10 while inpatient #. Allergies - Cetirizine switched to loratadine #. Skin - Decubitus prevention. FARIHA mattress, PODUS boots. Wound c/s PRN. Dry dressing for incision. Sutures: Absorbable. Nystatin (perineum) #. Bowel (BM 11/18) - Toileting schedule. Senna-S CAMMY. Bisacodyl supp nightly (consider dig stim) #. Diet: Nutrition consulted. Diet IDDSI 7, thins (carb consistent). Vit D supplement #. DVT Ppx/Tx: Hold PPx until 11/29. No AC until follow up with Ortho and Heme #. Precautions: Spinal (TLSO OOB) #. Lines/Tubes/Drains: None #. Code Status: Full code #. Discharge Planning: tbd RVISING LAW ENFORCEMENT ANALYST RVISING LAW ENFORCEMENT ANALYST documented in this encounter Plan of Treatment Not on file documented as of this encounter Visit Diagnoses Not on filedocumented in this encounter Care Teams Transition Advisor Relationship Specialty Start Date End Date Rl Medina DO [address] [place], [place] [id number] PCP - General 08/09/17 05/25/24 documented as of this encounter
--- OUTSIDE RECORDS SUMMARY | 2024-11-05 19:22 | XMS_ITS | Encounter Summary ---
Author Organization [facility] Healthcare Address [address] [place] [address] Care Team Providers Care Electrical Laboratory Technician Name Role Phone Rl Medina DO Primary Care Provider [phone] Marlen Gray RN Unavailable Reason for Visit * Reason Comments Post-op Problem * Auth/Cert (Routine) Specialty Diagnoses / Procedures Referred By Manisha t Referred To Contact Diagnoses Paralysis of both lower limbs (CMS/HCC) (HCC) numbness and weakness post spinal surgery Procedures NA Referral ID Status Reason Start Date Expiration Date Visits Re quested Visits Authorized [id number] 1 1 Encounter Details Date Type Department Care Team (Latest Contact Info) Description 11/07/2023 9:13 PM ELEC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 - 11/16/2023 12:56 PM ELEC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 Hospital Encounter [facility] [address] [place] [address] Temo Hampton MD [address] [place] [address] Marcial Vu MD [address] [facility] [address] [place] [address] Eula Wagoner MD [address] [place] [address] Marcial Vu Jr., MD [id number] [facility] [place] [address] Paralysis of both lower limbs (CMS/HCC) (HCC) (Primary Dx); Acute postoperative pain Discharge Disposition: Discharge to an IP Rehab facility Social History Tobacco Use Types Packs/Day Years Used Date Smoking Tobacco: Former Cigarettes 1 11 0 11/05/1968 - 11/05/1979 Passive Smoke Exposure: Past Smokeless Tobacco: Never Alcohol Use Standard Drinks/Week Comments Yes 14 (1 standard drink = 0.6 oz pu re alcohol) social [facility] Utilities Answer Date Recorded In the past 12 months has [employer] electric, gas, oil, or water company threatened [...] often do you attend chur ch or jain services? Never 11/10/2023 Do you belong to [...] slept in a half-way (including now)? 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 Not on file Not on file Not on file documented as of this encounter Last Filed Vital Signs Vital Sign Reading Time Taken Comments Blood Pressure 115/73 11/16/2023 11:00 AM ELEC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 Pulse 69 11/16/2023 11:00 AM ELEC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 Temperature 36.4 ??C (97.5 ??F) 11/16/2023 12:[address] Respiratory Rate 26 11/16/2023 11:00 AM ELEC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 Oxygen Saturation 96% 11/16/2023 11:00 AM ELEC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 Inhaled Oxygen Concentration - - Weight 88.6 kg (195 lb 5.2 oz) 11/07/2023 9:21 P M ELEC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 Height 172.7 cm (5' 7.99 ) 11/09/2023 5:05 PM CS T Body Mass Index 29.71 11/07/2023 9:21 PM ELEC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 documented in this encounter Discharge Summaries * Ash Franciscoj Avier Kaiser, WOMEN'S GARMENT FITTER - 11/16/2023 12:18 PM CST Images from the original note were not included. Spine Inpatient Discharge Summary Admitting Provider: Marcial Vu MD Discharge Provider: Marcial Vu Fo* Primary Care Physician at Discharge: Rl Medina DO [phone] Admission Date: 11/07/2023 Discharge Date: 11/16/2023 Primary Discharge Diagnosis: Paralysis of both lower limbs (CMS/HCC) (HCC) Secondary Discharge Diagnosis: Principal Problem: Paralysis of both lower limbs (CMS/HCC) ([facility]) Resolved Problems: No resolved hospital problems. DETAILS OF HOSPITAL STAY Chief Complaint: Weakness History of Present Illness: The patient is a 73 y.o. year old male cared for by Dr. Marcial Vu with a PMH notable for ostop cardiac arrest and b/l PE on therapeutic anticoagulation, prostate CA s/p prostatectomy, GERD, obesity, CKD, UTI, melanoma who presented to ED with cauda equina syndrome postoperative from L4-L5 decompression, TLIF, and PSF. Per the ED H&P, his overall course has been complex. Preoperatively, he underwent steroid injection to his lumbar spine with short term relief of his left sided radicular symptoms, but shortly thereafter developed profound left quadriceps weakness. He was scheduled for surgery and was found to have a complex UTI requiring urology stent placement preoperatively. He then underwent surgery and suffered a postoperative cardiac arrest and bilateral pulmonary emboli. He wasstarted on therapeutic lovenox for this. At the time of discharge, his harris was removed and he wasfound to have worsened urinary incontinence compared with prior to his urologic procedure as well as his spine surgery. He states this has been improving since hospital discharge. He was doing well po stoperatively and ambulating with a walker until the evening of 11/07/23 when he developed sudden onset bilateral lower extremity loss of motion and numbness. His called Dr. Vu and he was directed to go to the [facility] ED, from which he was life flighted to [facility]. He endorsed rapid onset abdominalpain and altered sensation from waist down, though states this had resolved since arriving to hospital. The risks, benefits, alternatives and complications of an T5-L5 laminectomies w/hematoma evacuationand lumbar dural repair were discussed with the patient at length prior to surgery. The patient elected to proceed with a surgical intervention given the significant influence on their quality of life. Informed consent was obtained prior to surgery. Operative Procedures Performed: Procedure(s): LAMINECTOMY THORACIC DECOMPRESSION LAMINECTOMY LUMBAR - POSTERIOR SPINAL CORD MONITORING REPAIR DURAL TEAR Hospital Course 11/08 OR for T5-L5 epidural hematoma evac. Neurosurgery consulted for intraoperative durotomy repair 11/[address] PE with decrease in clot burden. 11/10: increased bowel reg, worked with OT 11/11 PM&R cs placed. Getting 1 unit pRBCs - fu post- hgb, needs to work with PT. Llio gtt stopped, check pain control. 11/12: Pain management consulted-recommended against lido gtt, increase gabapentin and schedule flexiril. Signed-off. Tramadol started. 11/13: POD5. AFVSS. No new labs to review. Both drains removed yesterday. PMR evaluated and recommends inpatient spinal cord injury rehabilitation. Exam: SILT BLE. RLE motor 2/5 TA/EHL/GSC, LLE 1/5 EHL/GSC o/w no motor BLE. Plan: TTF, TLSO brace when OOB. PT/OT. iVac x7days (until 11/15) 11/14: POD 6. AFVSS. Continues to work on transfers with PT and sitting up in a chair. Pain controlled. Exam stable. Plan: TTF when able. Wound vac down tomorrow (POD7). PT rec d/c to IPR (spinal cordinjury neurorehab) 11/15: AFVSS. NAEO. Continues to do well with therapy. C/T/L spine XR completed yesterday. Exam stable. Plan: Taper dexamethsone for the next 3 days, wound vac change taken down today, d/c to rehab 11/16: AFVSS. Wound vac taken down yesterday and mepalex Ag border with ioban applied. Hgb 9.1. WBC 13.0. Exam stable. Plan for d/c to neurorehab The patient was able to wean away from intravenous narcotics , the patient was able to mobilize with physical and occupational therapy, the patient had post operative images and those images were reviewed by the surgeon, and the patient was felt to be stable for discharge to rehab on 11/16 Problems addressed during this hospitalization: Paralysis of both Lower Limbs --s/p T5-L5 laminectomies w/hematoma evacuation and lumbar dural repair on 11/08/23 --Drains x2 to gravity, removed with stitch on 11/12 --PT/OT recommend Rehab --NSGY following for dural repair --TLSO when OOB Acute on Chronic Pain --Initially managed with lidocaine infusion in the ICU, discontinued on 11/11 --Pain management consulted on 11/12 while patient on the floor, recommended against restarting lidocaine infusion and managing pain with oral regimen --Managed with oral regimen of tramadol, tylenol, and flexiril Bilateral Pulmonary Embolisms --CT PE on 11/09 with improved clot burden --LED's negative on 11/08 --IVC filter placed on 11/09 --Hematology consulted for risk stratification; recommend holding therapeutic AC x2 weeks --Plan to start prophylactic dosing at POD 21 and eventually transition to therapeutic dosing afteroutpatient follow-ups with both Dr. Vu and Hematology 4. Urinary Incontinence --Harris removed on 11/08, patient able to void --C/O urinary leakage, states baseline, wears depends at home --External urinary catheter in place while in patient Consults: Pain Management, PM&R, Cardiology, and Neurosurgery Other Procedures: N/A GI/ Concerns: Tolerating regular diet. Last bowel movement was 11/14/23 Harris removed on 11/08, now voiding spontaneously. Therapy recommendations: Inpatient rehabilitation Incision: Absorbable sutures Brace: TLSO Surgical drains: [place] x2 removed on 11/12 Central Line Removed: N/A Blood Transfusions: 4 units RBC's, 1 unit plasma Notable medications: Pain medications: Tramadol 50mg q4 prn, acetaminophen 1000mg q6, Flexiril 5mg TID 2. Steroids: Dexamethasone tapered to off on 11/16 3. Antibiotics: none 4. Anticoagulation/antiplatelet agents: Hold AC until 11/29/23 then okay to resume prophylactic dosed LVX Test Results Pending at Discharge: Pending Labs Order Current Status Basic metabolic panel In process Lidocaine level In process Pertinent Diagnostic Results: CT PE 11/09 1. Interval decrease in burden of bilateral pulmonary emboli with a few residual nonocclusive, resolving acute/subacute pulmonary emboli in the right lower lobe segmental arteries and small pulmonary infarcts in the anterior right upper and middle lobes. No new pulmonary emboli or CT evidence of right heart strain. 2. Persistent left renal subcapsular hematoma. 3. Unchanged left rib fractures. 4. Interval postsurgical changes in the thoracolumbar spine with subcutaneous gas and drain in place. Xray Lumbar and Thoracic 11/14 1. Unchanged combined posterior and anterior instrumented L4-L5 fusion. Physical Exam at Discharge: Gen: no acute distress Neuro: A&Ox3 Dressing: clean/dry/intact Wound Vac(s): Holding suction nicely, no apparent leaks Hemo Vac(s): Bile bags x2 to gravity Motor: Muscle Strength Right Left Shoulder abduction (C5) 5/5 5/5 Elbow flexion (C5/6) 5/5 5/5 Elbow extension (C7) 5/5 5/5 Wrist extension (C6) 5/5 5/5 Wrist flexion (C7) 5/5 5/5 Mangle Press Catcher (C8) 5/5 5/5 Interosseous of hand (T1) 5/5 5/5 Iliopsoas (L2/3) 0/5 0/5 Quadriceps (L3/4) 0/5 0/5 Tibialis anterior (L4/5) 2/5 0/5 Extensor hallicus longus (L5) 2/5 1/5 Gastrocsoleus complex (S1) 2/5 1/5 Sensation Left upper extremity: SILT C5 to T1 dermatomes. Right upper extremity: SILT C5 to T1 dermatomes. Left lower extremity: SILT L2 to S1 dermatomes. Right lower extremity: SILT L2 to S1 dermatomes. Long-tract signs: Negative Milner's BUE <2 beats clonus BLE Equivocal Babinski BLE Vascular: Bilateral Upper Extremity: 2+ radial pulse, fingers WWP Bilateral Lower Extremity: 2+ DP pulse, toes WWP Voiding on own with some urinary leakage (baseline for patient), condom catheter in place Passing gas, tolerating PO intake well Pain controlled on oral agents Suitable for discharge to rehab at this time Discharge Condition: Fair Vital Signs Pulse: 69 Resp: 26 BP: 115/73 Temp: 36.6 ??C (97.9 ??F) Weight: 88.6 kg (195 lb 5.2 oz) SpO2: 96 % Follow-up: Spine: Scheduled for 12/03/23 . Hematology - requested for 2-[address] Craft Lab tests/imaging necessary on follow-up: upright AP and lateral xrays of the thoracic spine and upright AP and lateral xrays of the lumbar spine Future Appointments Date Time Provider Department Center 12/03/2023 1:20 PM Marcial Vu MD SPINE BW4 OS 12/13/2023 1:20 PM Pan Irene MD URO BW MOB4 [facility]OTT 12/24/2023 2:20 PM BJ BCT3 BJ N CT [facility] Main IMG 12/24/2023 3:30 PM Carrie Jerez NP SPINE [id number] NS Chem/LFT Lab History Latest Ref Rng & Units 11/10/2023 23:13 11/11/2023 21:35 11/13/2023 20:07 11/15/2023 21:18 Labs-Chem/LFT Sodium 135 - 145 mmol/L 135 135 136 135 Creatinine 0.80 - 1.30 mg/dL 0.82 0.81 0.71 0.72 CrCl- Actual Body Weight (Cockcroft-Gault) 102 103.3 117.9 116.2 Hematology Lab History Latest Ref Rng & Units 11/10/2023 23:13 11/11/2023 11/13/2023 20:07 11/15/2023 21:18 Labs - Hematology WBC 3.8 - 9.9 K/cumm 9.2 9.1 12.6 13.0 Total Hb, POC 13.0 - 17.5 g/dL 7.5 8.8 9.1 9.1 Hct 38.9 - 50.3 % 22.6 25.8 28.0 27.1 Plt 150 - 400 K/cumm 211 187 188 182 Details More abnormal values are hidden. Newest values shown. Go to activity for more data. More values are hidden. Newest values shown. Go to activity for more data. Discharge Medication List: Current Medications TAKE these medications acetaminophen 500 mg capsule Take 2 capsules (1,000 mg total) by mouth every 6 (six) hours acyclovir 400 mg tablet Take 1 tablet (400 mg total) by mouth 2 (two) times a day For: Chronic Suppression Commonly known as: ZOVIRAX cephalexin 500 mg capsule Take 1 capsule (500 mg total) by mouth daily as needed (30 minutes prior to dental appt) When pt has procedures gets pre antibiotic r/t history knee replacements Commonly known as: KEFLEX cetirizine 10 mg tablet Take 1 tablet (10 mg total) by mouth import coordinator before breakfast For: inflammation of the nose due to an allergy Commonly known as: ZyrTEC cholecalciferol 5,000 unit capsule Take 1 capsule (5,000 Units total) by mouth every morning For: low vitamin D levels Commonly known as: VITAMIN D-3 coenzyme Q10 100 mg capsule Take 1 capsule (100 mg total) by mouth import coordinator before breakfast cyclobenzaprine 5 mg tablet Take 1 tablet [...] under the skin every 12 (twelve) hours Hold for 2 weeks post-operatively For: Pulmonary Embolism Commonly known as: LOVENOX Start taking on: November 22, 2023 gabapentin 300 mg capsule Take 1 capsule (300 mg total) by mouth every 8 (eight) hours For: pain Commonly known as: NEURONTIN irbesartan 150 mg tablet Take 1 tablet (150 mg total) by mouth every morning For: high blood pressure Commonly known as: AVAPRO Start taking on: November 17, 2023 levETIRAcetam 1,000 mg tablet Take 1 tablet (1,000 mg total) by mouth 2 (two) times a day Commonly known as: KEPPRA Mounjaro 10 mg/0.5 mL pen injector Inject 10 mg under the skin once a week Sunday For: Pre-Diabetic Generic drug: tirzepatide omeprazole 20 mg capsule Take 1 capsule (20 mg total) by mouth every morning For: Treatment of Non-Bleeding Gastric Disorder, GERD Commonly known as: PriLOSEC senna-docusate 8.6-50 mg Take 2 tablets by mouth 2 (two) times a day Commonly known as: PERICOLACE tamsulosin 0.4 mg extended release capsule Take 2 capsules (0.8 mg total) by mouth daily with dinner Commonly known as: FLOMAX traMADoL 50 mg tablet Take 1 tablet (50 mg total) by mouth every 4 (four) hours as needed for pain Commonly known as: ULTRAM Discharge Instructions: Activity Instructions Discharge Activity: Lifting restrictions -Do NOT lift greater than 10 pounds for 6 weeks. -Do NOT lift anything above your head. Discharge Activity: Out of bed walking -Out of bed walking at least 6-8 times every day -Ask your surgeon before doing any other kind of exercise Discharge activity: Activity restrictions -Do not go back to work until your surgeon says it's OK. -Do not jog, run or bike until your surgeon says it's OK. -Do not do any cager operator that cause you to twist, push or pull; such as laundry, vacuuming grocery shopping and childcare. -Do not flex (bring your head to your chest) or extend (lift your chin up high and away from your chest) unless your surgeon says it's OK. -Slowly work up to your normal activities at home with the exceptions as already noted. Discharge activity: Out of bed to chair -Out of bed to chair at least 3 times every day Thoracic Lumbar Sacral Orthotic -Your surgeon has given you a TLSO (Thoracic Lumbar Sacral Orthotic) brace to wear. You should wearthis brace when out of bed until follow-up with the surgeon. It is okay to remove this brace for bathing and dressing. Diet Instructions Adult Discharge Diet Diet Type: Return to previous diet Other Instructions Call 911 if you have chest pain or shortness of breath Call provider for any of the following: -Temperature greater than 101 degrees F or 38.5 C -You have any drainage from your incision -The skin around your incision is swollen and/or red -The incision starts to separate and open up -Pain medicine, rest or warm packs are not helping your pain -You are having new numbness or weakness -You begin feeling very weak -You are having numbness in your pelvic area -You are not able to control your bladder -You lose control of your bowels -You have constipation for longer than 5 days -You are having a hard time swallowing liquids -You have nausea or vomiting that will not go away -You have any swelling, warm to touch or painful areas in your legs. This needs IMMEDIATE attention. Care Instructions: No tub baths -No tub baths, whirlpools or swimming until your doctor says it's ok. Care Instructions: Surgical Dressing -Keep wound clean and dry at all times. Use a waterproof dressing while showering. Discharge Wound Type: Stitches/[place] -Stitches/annika will be removed at your next appointment Discharge exercises -Continue the exercises your therapist gave you in the hospital Incentive Spirometry Use your incentive spirometer 10 times every hour while awake for one week. Special Instructions It is important that you maintain normal bowel patterns, especially when taking opiate pain medications. Continue taking stool softeners and laxatives, if needed, while taking opiate pain medications. SEE AVS Cosigned by Marcial Vu MD at 11/16/2023 4:07 PM ELEC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 documented in this encounter Discharge Instructions * Discharge Instructions* Francisco Javier Aleman NP - 11/16/2023 11:01 AM ELEC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 Thoracic/Lumbar Spinal Fusion Post-Operative Instructions s/p Hematoma Evacuation Questions: ?? For any post-operative questions, please contact Dr. Horace Mojica???s nurse, at [phone] via [employer]. Galina will view and respond to your [employer] questions sent to Dr. Vu. Wound Care: ?? Please keep your initial surgical dressing (Mepilex + Ioban OR dermabond or Steri-Srips w/ tegaderm & ioban) intact until your postoperative clinic appointment two weeks after surgery. ?? Please contact Galina for further directions, if needed, regarding additional bandages to reinforce the dressing if the edges begin to come up. ?? Please DO NOT put any ointments or antimicrobial solutions over the incision. NOTIFY our office IMMEDIATELY if you experience any of the following symptoms: ?? Drainage from your incision. ?? New onset of weakness or numbness/tingling that lasts more than 12 hours per day. ?? Uncontrolled pain. ?? Swelling in one or both of your legs, warmth, redness or pain. Showering: ?? DO NOT GET INCISION WET FOR 2 WEEKS ?? During the first two weeks, you make shower with the dressing in place. Avoid direct water pressure over the incision/ dressing. ?? Dr. Vu will remove the dressing at your initial clinic visit (two weeks post-operative). After that appointment, you may leave the incision open to air and shower without the dressing unless otherwise directed. ?? DO NOT submerge incision (no bathing/ swimming) for 6 WEEKS after surgery or until the incision is completely healed Pain Medications: Depending on the surgery and the amount of pain you are having, Dr. Vu may prescribe for you two different pain medications after your surgery. The two medications are usually Oxycodone or Tramadol. Oxycodone is for severe pain and the Tramadol is for the lesser pain. It is best to wait to trythe Tramadol until your pain is better under control. PLEASE NOTE THAT YOU WILL RECEIVE 7 DAYS OF OPIOID REFILLS AT A TIME. THE QUANTITY WILL BE ADJUSTEDTHROUGHOUT YOUR RECOVERY. YOU SHOULD CONTACT OUR OFFICE 1-2 BUSINESS DAYS TO REQUEST REFILLS FOR SUBMISSION AND APPOVAL FROM DR. VU. Sleeping: You can sleep side to side or on your back. Do not sleep on your stomach. Restrictions: (BLT) ?? No athletic activities until you have discussed your limitations at your six week checkup. ?? No lifting more than a total of 10-15 pounds until after discussing this at your six week checkup. ?? No bending or twisting; maintain spinal alignment. Activities: ?? You may walk all that you would like over the next six weeks while you are recovering. Dr. Vu strongly recommends aerobic walking postoperatively, as it increases blood flow to the bone graft. ?? YOU ARE NOT ON BEDREST. Walk 6-8 times per day, 5 minutes each time, and change positions every 2 hours while awake. ?? You may use stairs as tolerated. Follow-up appointment: Your first postoperative visit will be in 2 weeks for a wound check and an exam. This appointment should be provided to you upon discharge. Please call Galina at [phone] if unable to keep appointment. A Hematology appointment has been requested for within 2-[address] Craft to discuss theBilateral Pulmonary Embolisms, any anticoagulation (blood thinners) and additional follow-up plan Emergencies: SIGNS OF AN EMERGENT SITUATION INCLUDE-If you find in the first 5-7 days after your surgery that you can not swallow even sips of water, you will need to be re-admitted to the hospital for I.V. hydration. This is a very rare occurrence. If you find that in addition to significant swallowing difficulties that the swelling makes it difficult to breathe-you will need to seek emergent care. If at allpossible, it is best that you return to [facility] for your emergent care. Please call the emergency exchange at [phone] or toll free any time of the day or night on the daysthe office is closed, so that the emergent care can be initiated for you. Please follow these instructions for emergency calls: -During business hours (Sunday through Sunday 8am-4:30 PM except for holidays), call [phone]. The buhr mill operator will connect you with Dr. Vu???s nurse. Dr. Vu???s nurse reports all emergencies to Dr. Vu. -After business hours (after 4:30 PM and before 8:00am) you may call the Emergency [facility] at [phone] or TOLL [phone]. The buhr mill operator physical integration practitioner will contact Dr. Echeverria???s staff. IMPORTANT: Refills of medications need to be done during business hours-NO pain medication refills will be given over the phone after hours. Please call with any questions or concerns. We will be glad to assist you in any way during your recovery period. Dr. Vu???s Staff Galina Franco RN: [phone] 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 documented in this encounter Medications at Time [...] 1 tablet (10 mg total) by mouth import coordinator before breakfast 4 cholecalciferol (VITAMIN D-3) 5,000 unit capsuleIndication s:Vitamin D Deficiency Take 1 capsule (5,000 Units total) by mouth every morning 4 coenzyme Q10 100 mg capsule Take 1 capsule (100 mg total) by mouth import coordinator before breakfast 4 cyclobenzaprine (FLEXERIL) 5 mg [...] 11/16/2023 4 documented as of this encounter Ordered Prescriptions Prescription Sig Dispense Quantity Refills Last Filled Start Date End Date enoxaparin (LOVENOX) 40 mg/0.4 mL syringe Inject 0.4 mL (40 mg total) under the skin daily Prophylactic dosing only for lovenox until follow-up with hematology outpatient 0 11/29/2023 4 traMADoL (ULTRAM) 50 mg tablet Take 1 tablet (50 mg total) by mouth every 4 (four) hours as needed for pain 42 tablet 11/16/2023 4 acetaminophen 500 mg capsule Take 2 capsules (1,000 mg total) by mouth every 6 (six) hours 11/16/2023 4 irbesartan (AVAPRO) 150 mg tabletIndications :hypertension Take 1 tablet (150 mg total) by mouth every morning 11/17/2023 4 senna-docusate (PERICOLACE) 8.6-50 mg Take 2 tablets by mouth 2 (two) times a day 11/16/2023 4 documented in this encounter Discharge Disposition Disposition Code Departure Means Destination Comment s Discharge to an IP Rehab facility [facility] documented in this encounter Progress Notes * Oneyda Farrell OT - 11/16/2023 9:48 AM CST Occupational Therapy Occupational Therapy Progress Note NOTE: This is [...] not assigned to this patient, please call [phone]. 11/16/23 0948 General Session Type Treatment OT Received On 11/16/23 Safe Environment Arm band checked;Patient found in supine;Gait belt not utilized, see comment Subjective Agreeable to Therapy Family/Caregiver Present No Precautions Precautions Spinal/Back;Fall risk Weight Bearing Restrictions No Braces/Orthoses TLSO Precaution Comments verbally reviewed precautions with pt prior to mobility Pain Assessment Pain Assessment 0-10 Pain Score 3 Pain Location Back (Lumbar) Pain Orientation Generalized Pain Interventions Repositioned Balance Balance Yes Static Sitting Balance Static Sitting-Balance Support Bilateral upper extremity supported;Feet supported Static Sitting-Sitting Surface Bed;Chair Static Sitting-Level of Assistance Close supervision Static Sitting-Comment/# of Minutes safety Dynamic Sitting Balance Dynamic Sitting-Balance Support Bilateral upper extremity supported;Feet supported Dynamic Sitting-Balance Forward lean;Lateral lean Dynamic Sitting-Sitting Surface Bed;Chair Dynamic Sitting-Level of Assistance Minimum assistance Dynamic Sitting-Comments balance and safety while repositioning hips ADL ADLS (WDL) X LE Dressing LE Dressing: Where assessed Supine, bed LE Dressing: Level of assistance Dependent LE Dressing: Assistance with (all components) Toileting Toileting: Where assessed Chair Toileting: Equipment utilized Toilet aid Toileting: Level of assistance Dependent Toileting: Assistance with (all components) Bed Mobility Bed Mobility Yes Bed Mobility 1 Bed Mobility From 1 Supine Bed Mobility Type 1 To and from Bed Mobility to 1 Side lying-right;Side lying-left Level of Assistance 1 Minimum Assist Bed Mobility Comments 1 min A for force production Bed Mobility 2 Bed Mobility From 2 Supine Bed Mobility Type 2 To Bed Mobility to 2 Edge of Bed Level of Assistance 2 Moderate Assist Bed Mobility Comments 2 mod A for trunk elevation, BLE management; VC for technique and safety Transfers Transfer Yes Toilet Transfers Toilet Transfer From Bed Toilet Transfer Type To Toilet Transfer to Drop-arm commode (simulated to drop arm recliner) Toilet Transfer Technique Lateral Toilet Transfer: Equipment (slide board) Toilet Transfers Moderate assistance (x2) Toilet Transfers Comments mod A x2 for force production, weight shifting, and trunk control; VC fortechnique and safety Cognition Arousal/Alertness Alert;Appropriate responses to stimuli Attention Span Appears intact Memory Appears intact Current communication Appears Intact Orientation Oriented X4 (person, place, time, situation) Following Commands Follows all commands and directions without difficulty Safety Judgment Good awareness of safety precautions Awareness of Errors Good awareness of errors made Insight Fully aware of deficits Problem Solving Able to problem solve independently Compliance/Behavior Easy to engage Perseveration Not present Other Comments Comments Increased time completing toileting and clean up after slide board transfer. Pt continues to be motivated when working with therapy. Pt would continue to benefit from skilled OT to increase strength, endurance and indep with ADLs. Daily Activity - 6 Clicks Putting on and taking off regular lower body clothing 1 Bathing 2 Toileting 1 Putting on and taking off upper body clothing 2 Personal Grooming 2 Eating Meals 3 Total Score (range 6-24) 11 Score Interpretation 29.04 Safe Environment End of Therapy Session Safe Environment End of Therapy Session Patient left in recliner;RN notified;Call light within reach;Overbed table within reach Assessment Problem List Decreased upper extremity strength;Decreased endurance;Decreased balance;Decreased functional mobility;Decreased ADL independence;Decreased IADL independence;Decreased trunk control for functional activities Barriers to Discharge Current Mobility Status;Current ADL Status Barrier Comments fall risk Plan Plan Continue with current plan;If this is the last note, consider this the discharge summary Recommendation/Plan OT Recommendation Inpatient Rehab Facility Patient at high risk for Falls;Readmission;Injury due to decreased ability to care for self;Injury due to reduced functional status;Injury due to balance deficits;Injury at home as patient has not returned to prior level of function Recommend Inpatient Rehab/Acute Rehab due to Ability [...] ADL tasks OT Frequency during current admission 5-7x/wk Treatment/Interventions during current admission ADL/IADL retraining;Balance Training;Bed mobility;Compensatory technique education;Endurance training;Equipment eval/education;Functional activity;Functional mobility training;Functional transfer training;Positioning;Range of motion;Strengthening;Therapeutic activity;Therapeutic exercise;Transfer training Progress during current admission Progressing toward goals OT - Next Appointment 11/19/23 Multi-Disciplinary Problems (from Occupational Therapy) Active Problems Problem: Grooming Start Date: 11/10/23 Goal Start Date Expected End Date End Date STG - Patient will complete grooming 11/10/23 11/17/23 -- Goal Details: Spv in unsupported sitting Problem: Toileting Start Date: 11/10/23 Goal Start Date Expected End Date End Date STG - Patient will complete toileting tasks with 11/10/23 11/17/23 -- Goal Details: Mod A Problem: Transfers Start Date: 11/10/23 Goal Start Date Expected End Date End Date STG - Patient will perform toilet transfer 11/10/23 11/17/23 -- Goal Details: To/from BS with mod A Problem: OT Misc Start Date: 11/10/23 Goal Start Date Expected End Date End Date OT LTG - Misc 1 11/10/23 12/01/23 -- Goal Details: Pt will complete ADLs with spv 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 * Nasir Manzanares MD - 11/16/2023 4:48 AM CST Orthopaedic Spine Service Daily Progress Note Admit Date: 11/07/2023 Hospital Day: 9 [facility] Dx: Acute cauda equina 2/2 hematoma Relevant PMHx: postop cardiac arrest and b/l PE on therapeutic anticoagulation, prostate CA s/p prostatectomy, GERD, obesity, CKD, UTI, melanoma Procedure(s): 10/23/23: L4-L5 decompression, TLIF, PSF 11/08/23: T5-L5 laminectomies w/hematoma evacuation and lumbar dural repair Interval History: AFVSS. Wound vac taken down yesterday and mepalex Ag border with ioban applied. Hgb 9.1. WBC 13.0. Exam stable. Plan for d/c to neurorehab Objective Vitals: 24hr Min/Max: Temp Min: 36.6 ??C (97.9 ??F) Max: 36.7 ??C (98.1 ??F) Pulse Min: 55 Max: 80 BP Min: 109/55 Max: 152/87 Resp Min: 13 Max: 35 SpO2 Min: 76 % Max: 100 % I/O last 2 completed shifts: In: 460 [P.O.:460] Out: 111 [Urine:111] I/O this shift: In: - Out: 427 [Urine:427] Physical Exam: Gen: no acute distress Neuro: A&Ox3 Dressing: clean/dry/intact Wound Vac(s): Holding suction nicely, no apparent leaks Hemo Vac(s): Bile bags x2 to gravity Motor: Muscle Strength Right Left Shoulder abduction (C5) 5/5 5/5 Elbow flexion (C5/6) 5/5 5/5 Elbow extension (C7) 5/5 5/5 Wrist extension (C6) 5/5 5/5 Wrist flexion (C7) 5/5 5/5 Mangle Press Catcher (C8) 5/5 5/5 Interosseous of hand (T1) 5/5 5/5 Iliopsoas (L2/3) 0/5 0/5 Quadriceps (L3/4) 0/5 0/5 Tibialis anterior (L4/5) 2/5 0/5 Extensor hallicus longus (L5) 2/5 1/5 Gastrocsoleus complex (S1) 2/5 1/5 Sensation Left upper extremity: SILT C5 to T1 dermatomes. Right upper extremity: SILT C5 to T1 dermatomes. Left lower extremity: SILT L2 to S1 dermatomes. Right lower extremity: SILT L2 to S1 dermatomes. Long-tract signs: Negative Milner's BUE <2 beats clonus BLE Equivocal Babinski BLE Vascular: Bilateral Upper Extremity: 2+ radial pulse, fingers WWP Bilateral Lower Extremity: 2+ DP pulse, toes WWP Lab/Diagnostic Review: Recent Labs Lab Units 11/15/23211911/15/232117 SODIUM mmol/L -- 135 POTASSIUM PLASMA mmol/L -- 4.1 CHLORIDE mmol/L -- 103 CO2 mmol/L -- 25 ANIONGAP mmol/L -- 7 GLUCOSE mg/dL -- 185 POC GLUCOSE MONITOR mg/dL 182 -- BUN SERUM mg/dL -- 24 CREATININE mg/dL -- 0.72* CALCIUM mg/dL -- 8.0* WBC K/cumm -- 13.0* HEMOGLOBIN g/dL -- 9.1* HEMATOCRIT % -- 27.1* PLATELETS K/cumm -- 182 Micro: Lab Results Component Value Date MICROBIOLOGY Final Report: No growth 10/14/2023 MICROBIOLOGY Final Report: No growth 10/13/2023 MICROBIOLOGY Final Report: No growth 10/13/2023 MICROBIOLOGY Final Report: No growth 10/12/2023 MICROBIOLOGY Final Report: No growth 10/12/2023 MICROBIOLOGY (.) 10/12/2023 Final Report: Greater than or equal to 100,000 colonies/mL of Escherichia coli Greater than or equal to 100,000 colonies/mL of Escherichia coli #2 For susceptibility results, refer to accession number [id number] on the urine culture from 10/11/23 MICROBIOLOGY (.) 10/11/2023 Final Report: Greater than or equal to 100,000 colonies/mL of Escherichia coli Greater than or equal to 100,000 colonies/mL of Escherichia coli #2 MICROBIOLOGY 03/15/2023 Final Report: Less than 100,000 colonies/mL (clinically insignificant growth based on current clinical standards) MICROBIOLOGY Final Report: No growth 09/24/2019 Plan: 1. Pain control - pt strongly requesting no oxy/opioid medication 4. Anticoagulation per Heme, plan to hold for 2 weeks 5. Decadron 4 mg q.6 hours x7 days (until 11/15) --> taper off over the next 3 days 6. Q4 hour neuro checks 7. Drains d/c's on 11/12 and drain sites stitched with nylon 8. TLSO brace when out of bed; okay to start PT/OT 9. IVC filter placed 10. Dispo to spinal cord injury neurorehab 11. Wound vac taken down on 11/15 and changed to mepalex Ag + ioban Nasir Manzanares MD Department of Orthopaedic Surgery, PGY-2 [facility] Please call with questions during daytime. See below for overnight issues. If you know the resident's name on the appropriate orthopaedic surgery team, please use [email or web address] to page resident directly. If questions arise and the appropriate resident can't be reached or you are calling overnight, please contact [phone] ([place]- 7:30 PM - 6:30 AM - Floor Resident) or [phone] (24 hours/day - Consult Resident) Cosigned by Marcial Vu MD at 11/21/2023 5:13 PM ELEC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 * Javad Sánchez. - 11/15/2023 1:32 PM CST Physical Therapy Physical Therapy Progress [...] treatment team and contact the PT or PLUSH BRUSHER currently assigned to this patient. If a physical therapy clinician is not assigned to this patient, please call [phone]. 11/15/23 1336 PT Last Visit Session Type Treatment PT Received On 11/15/23 Safe Environment Arm band checked;Patient found sitting in chair;Session completed bedside Subjective Agreeable to Therapy Family/Caregiver Present Yes Precautions Precautions Fall risk;Spinal/Back Weight Bearing Restrictions No Braces/Orthoses TLSO Precaution Handout Issued No Activity Tolerance Activity Tolerance Comments LUIS ANGEL: Hard Pain Assessment Pain Assessment 0-10 Pain Score 1 Pain Type Surgical pain Pain Location Back (Lumbar) Pain Orientation Generalized Pain Descriptors Aching;Dull Pain Interventions Repositioned Cognition Arousal/Alertness Alert;Appropriate responses to stimuli Orientation Oriented X4 (person, place, time, situation) Following Commands Follows all commands and directions without difficulty Compliance/Behavior Easy to engage Balance Balance Yes Static Sitting Balance Static Sitting-Balance Support Bilateral upper extremity supported Static Sitting-Sitting Surface Chair Static Sitting-Level of Assistance Distant supervision Dynamic Sitting Balance Dynamic Sitting-Balance Support Bilateral upper extremity supported Dynamic Sitting-Balance Forward lean Dynamic Sitting-Sitting Surface Chair Dynamic Sitting-Level of Assistance Minimum assistance Seated Seated-Exercises Upper extremity Seated-Exercise Type Wheelchair push ups Reps/Sets x10 Seated-Exercise Comments pt educated to perform wheelchair push-ups for pressure relief Bed Mobility Bed Mobility Yes Bed Mobility 1 Bed Mobility From 1 Supine Bed Mobility Type 1 To and from Bed Mobility to 1 Side lying-right;Side lying-left Level of Assistance 1 Minimum Assist Bed Mobility Comments 1 pt required min assistance to maintain end postion Bed Mobility 2 Bed Mobility From 2 Edge of bed Bed Mobility Type 2 To Bed Mobility to 2 Side lying-left Level of Assistance 2 Moderate Assist Transfers Transfer Yes Transfer 1 Transfer From 1 Chair without arms Transfer Type 1 To Transfer to 1 Bed Technique 1 Lateral with transfer board Transfer Level of Assistance 1 Maximum Assist Ambulation Ambulation No Stairs Stairs No Basic Mobility - 6 Click How much difficulty does the patient have: Turning over in bed 3 How much difficulty does the patient currently have: Sitting down and standing up from a chair witharms? 2 How much difficulty does the patient have: Moving from lying on back to sitting on the side of the bed? 2 How much difficulty does the patient have: Moving to and from a bed to a chair including wheelchair? 2 How much help does the patient currently need: Walk in hospital room? 1 How much help from another person does the patient currently need: Climbing 3-5 steps with a railing? 1 Total 6 Click Score (range 6-24) 11 Score Interpretation 30.25 Safe Environment End of Therapy Session Safe Environment End of Therapy Session Patient left supine in bed;Call light within reach Assessment Prognosis Good Problem List Decreased strength;Decreased mobility;Obesity Plan Plan Continue with current plan;If this is the last note, consider this the discharge summary Recommendation/Plan PT Recommendation/Plan Inpatient Rehab Facility ([facility]) Patient at high risk for Falls;Readmission Recommend Inpatient Rehab/Acute Rehab due to Ability to actively participate in intensive therapy 3hours/day, 5 days/week or 900 minutes per week;Highly motivated to participate in therapy PT Frequency during current admission 5-7x/wk Treatment/Interventions during current admission Balance Training;Bed mobility;Functional activity;Functional transfer training;Neuromuscular re- education;Therapeutic activity;Therapeutic exercise Progress during current admission Progressing toward goals PT - Next Appointment 11/16/23 PT Evaluation Complete Yes Multi-Disciplinary Problems (from Physical Therapy) Active Problems Problem: Transfers Start Date: 11/10/23 Goal Start Date Expected End Date End Date STG - Transfer from bed to chair 11/10/23 11/24/23 -- Goal Details: Max A with or without slide board Goal Start Date Expected End Date End Date STG - Patient to transfer to and from sit to supine 11/10/23 11/24/23 -- Goal Details: Mod A Goal Start Date Expected End Date End Date STG - Patient will roll 11/10/23 11/24/23 -- Goal Details: Min A Problem: Balance Start Date: 11/10/23 Goal Start Date Expected End Date End Date STG - Maintains static sitting balance with upper extremity support 11/10/23 11/24/23 -- Goal Details: SBA for 5 minutes Cosigned by Radha Dunlap, PT at 11/15/2023 4:06 PM ELEC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 * Oneyda Farrell OT - 11/15/2023 8:03 AM CST Occupational Therapy Occupational Therapy Progress Note NOTE: This is [...] not assigned to this patient, please call [phone]. 11/15/23 0803 General Session Type Treatment OT Received On 11/15/23 Safe Environment Arm band checked;Patient found in supine;Gait belt not utilized, see comment Subjective Agreeable to Therapy Family/Caregiver Present No Precautions Precautions Fall risk;Spinal/Back Weight Bearing Restrictions No Braces/Orthoses TLSO (donned in supine) Precaution Comments verbally reviewed precautions with pt prior to mobility Pain Assessment Pain Assessment No/denies pain Balance Balance Yes Static Sitting Balance Static Sitting-Balance Support Bilateral upper extremity supported Static Sitting-Sitting Surface Bed;Chair Static Sitting-Level of Assistance Minimum assistance Static Sitting-Comment/# of Minutes min A to maintain trunk control and safety Dynamic Sitting Balance Dynamic Sitting-Balance Support Bilateral upper extremity supported Dynamic Sitting-Balance Lateral lean;Forward lean;Reaching for objects;Reaching across midline Dynamic Sitting-Sitting Surface Bed;Chair Dynamic Sitting-Level of Assistance Minimum assistance Dynamic Sitting-Comments balance and safety while repositioning ADL ADLS (WDL) X LE Dressing LE Dressing: Where assessed Supine, bed LE Dressing: Level of assistance Dependent LE Dressing: Assistance with (all components) Toileting Toileting: Where assessed Supine, bed Toileting: Level of assistance Dependent Toileting: Assistance with (all components) Bed Mobility Bed Mobility Yes Bed Mobility 1 Bed Mobility From 1 Supine Bed Mobility Type 1 To and from Bed Mobility to 1 Side lying-right;Side lying-left Level of Assistance 1 Moderate Assist;Minimum Assist Bed Mobility Comments 1 x2 reps rolling to each side; mod A for first rep but then progressed to min A second rep; assist provided for force production; VC for technique and hand placement Bed Mobility 2 Bed Mobility From 2 Side lying-left Bed Mobility Type 2 To Bed Mobility to 2 Edge of Bed Level of Assistance 2 Moderate Assist Bed Mobility Comments 2 mod A for trunk elevation, BLE management; pt able to scoot hips EOB with use of BUE; VC for technique and safety Transfers Transfer Yes Toilet Transfers Toilet Transfer From Bed Toilet Transfer Type To Toilet Transfer to Drop-arm commode (simulated to drop arm recliner) Toilet Transfer Technique Lateral Toilet Transfer: Equipment (slide board) Toilet Transfers Moderate assistance (x2) Toilet Transfers Comments mod A x2 for lateral weght shifting, force production and trunk control; VC for hand placement, technique and safety Therapeutic Exercise - ROM/STRENGTH ROM/STRENGTH Yes All Joints - ROM/Strength - Right R Motion All Joints AROM R Position All Joints Seated Equipment Theraband R Weight/Reps/Sets All Joints 10 reps x1 set: horizontal abduction, tricep flexion/extension, and bicep flexion/extension All Joints - ROM/STRENGTH - Left L Motion All Joints AROM L Position All Joints Seated Equipment Theraband L Weight/Reps/Sets All Joints 10 reps x1 set: horizontal abduction, tricep flexion/extension, and bicep flexion/extension Cognition Arousal/Alertness Alert;Appropriate responses to stimuli Attention Span Appears intact Memory Appears intact Current communication Appears Intact Orientation Oriented X4 (person, place, time, situation) Following Commands Follows all commands and directions without difficulty Safety Judgment Good awareness of safety precautions Awareness of Errors Good awareness of errors made Insight Fully aware of deficits Problem Solving Able to problem solve independently Compliance/Behavior Easy to engage Perseveration Not present Other Comments Comments Pt continues to be very motivated when working with therapy. Pt would continue to benefit from skilled OT to increase strength, endurance, and indep with ADLs. Daily Activity - 6 Clicks Putting on and taking off regular lower body clothing 1 Bathing 2 Toileting 1 Putting on and taking off upper body clothing 2 Personal Grooming 2 Eating Meals 3 Total Score (range 6-24) 11 Score Interpretation 29.04 Safe Environment End of Therapy Session Safe Environment End of Therapy Session Patient left in recliner;RN notified;Call light within reach;Overbed table within reach Assessment Problem List Decreased upper extremity strength;Decreased endurance;Decreased balance;Decreased functional mobility;Decreased ADL independence;Decreased IADL independence;Decreased trunk control for functional activities Barriers to Discharge Current Mobility Status;Current ADL Status Barrier Comments fall risk Plan Plan Continue with current plan;If this is the last note, consider this the discharge summary Recommendation/Plan OT Recommendation Inpatient Rehab Facility Patient at high risk for Falls;Readmission;Injury due to decreased ability to care for self;Injury due to reduced functional status;Injury due to balance deficits;Injury at home as patient has not returned to prior level of function Recommend Inpatient Rehab/Acute Rehab due to Ability [...] tasks;Requires multiple therapy disciplines to address functional deficits OT Frequency during current admission 5-7x/wk Treatment/Interventions during current admission ADL/IADL retraining;Balance Training;Bed mobility;Compensatory technique education;Endurance training;Equipment eval/education;Functional activity;Functional mobility training;Functional transfer training;Positioning;Range of motion;Strengthening;Therapeutic activity;Therapeutic exercise;Transfer training Progress during current admission Progressing toward goals OT - Next Appointment 11/16/23 Multi-Disciplinary Problems (from Occupational Therapy) Active Problems Problem: Grooming Start Date: 11/10/23 Goal Start Date Expected End Date End Date STG - Patient will complete grooming 11/10/23 11/17/23 -- Goal Details: Spv in unsupported sitting Problem: Toileting Start Date: 11/10/23 Goal Start Date Expected End Date End Date STG - Patient will complete toileting tasks with 11/10/23 11/17/23 -- Goal Details: Mod A Problem: Transfers Start Date: 11/10/23 Goal Start Date Expected End Date End Date STG - Patient will perform toilet transfer 11/10/23 11/17/23 -- Goal Details: To/from [facility] with mod A Problem: OT Misc Start Date: 11/10/23 Goal Start Date Expected End Date End Date OT LTG - Misc 1 11/10/23 12/01/23 -- Goal Details: Pt will complete ADLs with spv 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 * Nasir Manzanares MD - 11/15/2023 7:49 AM CST Orthopaedic Spine Service Daily Progress Note Admit Date: 11/07/2023 Hospital Day: 8 [place] Dx: Acute cauda equina 2/2 hematoma Relevant PMHx: postop cardiac arrest and b/l PE on therapeutic anticoagulation, prostate CA s/p prostatectomy, GERD, obesity, CKD, UTI, melanoma Procedure(s): 10/23/23: L4-L5 decompression, TLIF, PSF 11/08/23: T5-L5 laminectomies w/hematoma evacuation and lumbar dural repair Interval History: AFVSS. NAEO. Continues to do well with therapy. C/T/L spine XR completed yesterday. Exam stable. Plan: Taper dexamethsone for the next 3 days, wound vac change taken down today, d/c to rehab Objective Vitals: 24hr Min/Max: Temp Min: 36.5 ??C (97.7 ??F) Max: 36.8 ??C (98.3 ??F) Pulse Min: 51 Max: 65 BP Min: 113/78 Max: 152/74 Resp Min: 13 Max: 22 SpO2 Min: 78 % Max: 100 % I/O last 2 completed shifts: In: 740 [P.O.:740] Out: 1061 [Urine:1061] No intake/output data recorded. Physical Exam: Gen: no acute distress Neuro: A&Ox3 Dressing: clean/dry/intact Wound Vac(s): Holding suction nicely, no apparent leaks Hemo Vac(s): Bile bags x2 to gravity Motor: Muscle Strength Right Left Shoulder abduction (C5) 5/5 5/5 Elbow flexion (C5/6) 5/5 5/5 Elbow extension (C7) 5/5 5/5 Wrist extension (C6) 5/5 5/5 Wrist flexion (C7) 5/5 5/5 Mangle Press Catcher (C8) 5/5 5/5 Interosseous of hand (T1) 5/5 5/5 Iliopsoas (L2/3) 0/5 0/5 Quadriceps (L3/4) 0/5 0/5 Tibialis anterior (L4/5) 2/5 0/5 Extensor hallicus longus (L5) 2/5 1/5 Gastrocsoleus complex (S1) 2/5 1/5 Sensation Left upper extremity: SILT C5 to T1 dermatomes. Right upper extremity: SILT C5 to T1 dermatomes. Left lower extremity: SILT L2 to S1 dermatomes. Right lower extremity: SILT L2 to S1 dermatomes. Long-tract signs: Negative Milner's BUE <2 beats clonus BLE Equivocal Babinski BLE Vascular: Bilateral Upper Extremity: 2+ radial pulse, fingers WWP Bilateral Lower Extremity: 2+ DP pulse, toes WWP Lab/Diagnostic Review: Recent Labs Lab Units 11/14/23203811/13/[id number] 01/04/24 1505 11/08/23 1151 SODIUM mmol/L -- -- 136 < > 138 POTASSIUM PLASMA mmol/L -- -- 4.6 < > 4.4 CHLORIDE mmol/L -- -- 102 < > 108 CO2 mmol/L -- -- 26 < > 22 ANIONGAP mmol/L -- -- 8 < > 8 GLUCOSE mg/dL -- -- 138 < > 181 POC GLUCOSE MONITOR mg/dL 180 < > -- < > -- BUN SERUM mg/dL -- -- 27* < > 15 CREATININE mg/dL -- -- 0.71* < > 0.82 CALCIUM mg/dL -- -- 8.4* < > 8.0* WBC K/cumm -- -- 12.6* < > 10.4* HEMOGLOBIN g/dL -- -- 9.1* < > 9.2* HEMATOCRIT % -- -- 28.0* < > 27.4* PLATELETS K/cumm -- -- 188 < > 255 INR -- -- -- -- 1.12 < > = values in this interval not displayed. Micro: Lab Results Component Value Date MICROBIOLOGY Final Report: No growth 10/14/2023 MICROBIOLOGY Final Report: No growth 10/13/2023 MICROBIOLOGY Final Report: No growth 10/13/2023 MICROBIOLOGY Final Report: No growth 10/12/2023 MICROBIOLOGY Final Report: No growth 10/12/2023 MICROBIOLOGY (.) 10/12/2023 Final Report: Greater than or equal to 100,000 colonies/mL of Escherichia coli Greater than or equal to 100,000 colonies/mL of Escherichia coli #2 For susceptibility results, refer to accession number [id number] on the urine culture from 10/11/23 MICROBIOLOGY (.) 10/11/2023 Final Report: Greater than or equal to 100,000 colonies/mL of Escherichia coli Greater than or equal to 100,000 colonies/mL of Escherichia coli #2 MICROBIOLOGY 03/15/2023 Final Report: Less than 100,000 colonies/mL (clinically insignificant growth based on current clinical standards) MICROBIOLOGY Final Report: No growth 09/24/2019 Plan: 1. Pain control - pt strongly requesting no oxy/opioid medication 4. Anticoagulation per Heme, plan to hold for 2 weeks 5. Decadron 4 mg q.6 hours x7 days (until 11/15) --> taper off over the next 3 days 6. Q4 hour neuro checks 7. Drains d/c's on 11/12 and drain sites stitched with nylon 8. TLSO brace when out of bed; okay to start PT/OT 9. IVC filter placed 10. Dispo to spinal cord injury neurorehab 11. Wound vac in place until 11/15 --> will take down today and change to mepalex Ag keyur and nicholas Manzanares MD Department of Orthopaedic Surgery, PGY-2 [facility] [place]/[facility] Please call with questions during daytime. See below for overnight issues. If you know the resident's name on the appropriate orthopaedic surgery team, please use [email or web address] to page resident directly. If questions arise and the appropriate resident can't be reached or you are calling overnight, please contact [phone] ([facility] 7:30 PM - 6:30 AM - Floor Resident) or [phone] (24 hours/day - Consult Resident) Cosigned by Marcial Vu MD at 11/15/2023 4:18 PM ELEC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 * Jeremias Ibrahim RD - 11/14/2023 7:35 PM CST NUTRITION ASSESSMENT Nutrition Status: Patient appears adequately nourished at this time. REASON FOR ASSESSMENT: Length of Stay Encounter Date: 11/14/23 7:41 PM Admission Date: 11/07/2023 LOS: 7 days HPI: Patient is a 73 y.o. male Epidural/subdural hematoma s/p T5-L5 laminectomy and hematoma evacuation Objective Past Medical History: Diagnosis Date Allergic rhinitis Arthritis OA Cancer (CMS/HCC) (HCC) prostate and melonomia Gastric reflux GERD (gastroesophageal [...] ARTHROPLASTY Right 09/30/2019 VASECTOMY 30 years ago Social History Tobacco Use Smoking status: Former [...] or 2 Frequency of Binge Drinking: Never MEDICATION/LAB REVIEW: Scheduled Meds: acetaminophen, 1,000 mg, oral, Q6H acyclovir, 400 mg, oral, BID bisacodyL, 10 mg, rectal, Daily cetirizine, 10 mg, oral, Daily cholecalciferol, 5,000 Units, oral, Daily cyclobenzaprine, 5 mg, oral, TID dexAMETHasone, 2 mg, oral, Q6H CAMMY Followed by [START ON 11/15/2023] dexAMETHasone, 2 mg, oral, Q12H CAMMY Followed by [START ON 11/16/2023] dexAMETHasone, 2 mg, oral, Once dilTIAZem XR, 240 mg, oral, BID gabapentin, 600 mg, oral, TID insulin lispro, 0-10 Units, subcutaneous, TID with meals insulin lispro, 0-5 Units, subcutaneous, Nightly irbesartan, 150 mg, oral, QAM levETIRAcetam, 1,000 mg, oral, BID pantoprazole DR, 40 mg, oral, Daily ramelteon, 8 mg, oral, Nightly senna-docusate, 2 tablet, oral, BID sodium chloride 0.9%, 0.5-20 mL, intra-catheter, Q8H CAMMY tamsulosin, 0.8 mg, oral, Daily with dinner Continuous Infusions: PRN Meds: dextrose OR dextrose glucagon hydrALAZINE ondansetron prochlorperazine sodium chloride 0.9% traMADoL Recent Labs Lab Units 11/13/23200611/11/23 2135 11/10/23 2313 SODIUM mmol/L 136 135 135 POTASSIUM PLASMA mmol/L 4.6 4.6 4.3 CHLORIDE mmol/L 102 103 104 CO2 mmol/L 26 24 24 BUN SERUM mg/dL 27* 22 22 CREATININE mg/dL 0.71* 0.81 0.82 [id number] mL/min/1.73 m2 >90 >90 >90 CALCIUM mg/dL 8.4* 8.2* 7.9* PHOSPHORUS PLASMA mg/dL 2.7 2.4 2.4 MAGNESIUM mg/dL 2.1 2.1 2.3 Recent Labs Lab Units 11/14/23 1744 11/14/23 1152 11/14/23 0804 11/13/23201011/13/23200611/13/23 1658 11/13/23 1222 GLUCOSE mg/dL -- -- -- -- 138 -- -- POC GLUCOSE MONITOR mg/dL 193 150 144 150 -- 188 138 No results found for: ALT , AST , BILIRUBIN , ALKPHOS , LIPASE Lab Results Component Value Date HDL 34 (L) 10/23/2023 LDLCALC 101 10/23/2023 CHOL 162 10/23/2023 TRIG 134 10/23/2023 NURSING ASSESSMENT: Bowel Sounds (All Quadrants): Active Emesis Assessment Emesis Color/Appearance: Green, Yellow Skyler Scale Score: 17 Skin Integrity: Surgical incision Type of Wound (LDA): Surgical site Surgical Site 10/23/23 Back-Negative Pressure Wound Therapy Used: Yes Vital Signs BP: 133/76 Temp: 36.8 ??C (98.2 ??F) Pulse: 65 Resp: 14 SpO2: 99 % Intake/Output Summary (Last 24 hours) at 11/14/20231940 Last data filed at 11/14/2023 1855 Gross per 24 hour Intake 740 ml Output 1900 ml Net -1160 ml Adult Malnutrition Scoring Tool (MST) What diet do you follow at home?: Nonspecific Have You Recently Lost Weight Without Trying?: No Have you been eating poorly because of a decreased appetite?: No (Takes Mounjaro) Malnutrition Screening Tool (MST) Score: 0 Within the past 12 months, you worried that your food would run out before you got the money to buymore.: Never true Within the past 12 months, the food you bought just didn't last and you didn't have money to get more.: Never true Anthropometrics Weight: 88.6 kg (195 lb 5.2 oz) Admission Weight : 88.6 kg Weight Change: 0.00 kg (0.00 lbs) IBW/kg (Calculated) : 69.8 kg Height: 172.7 cm (5' 7.99 ) Weight in (lb) to have BMI = 25: 164 BMI (Calculated): 29.7 Wt Readings from Last 10 Encounters: 11/07/23 88.6 kg (195 lb 5.2 oz) 10/23/23 88.6 kg (195 lb 5.2 oz) 10/11/23 86.6 kg (190 lb 14.7 oz) 09/13/23 84.8 kg (187 lb) 10/25/22 83.9 kg (185 lb) 10/17/21 89 kg (196 lb 3.2 oz) 09/28/21 89.8 kg (198 lb) 08/09/21 89.4 kg (197 lb) 09/30/19 86.2 kg (190 lb) 09/03/19 90 kg (198 lb 6.6 oz) ESTIMATED NEEDS: . Dietary Orders (From admission, onward) Start Ordered 11/15/23 0700 Oral Nutrition Supplements Select Supplement: Ensure Max - Debbie; Quantity (# of cans): 1 can All Meals Question Answer Comment Select Supplement: Ensure Max - Debbie Quantity (# of cans): 1 can 11/14/23 1933 11/14/23 0940 Adult Diet Restricted; Consistent Carbohydrate; High Protein/High Calorie Diet effective now Question Answer Comment ([facility]) Diet type Restricted Diabetic: Consistent Carbohydrate Other Restriction(s): High Protein/High Calorie 11/14/23 0939 11/09/23 2100 Bedtime snack At bedtime Comments: If bedtime BG is less than 100mg/dl, give patient a 15 gram carbohydrate snack. 11/09/23 1948 Allergies: Reviewed. IMPRESSION: Pt had been placed on [facility] soft consistency when diet started. Not sure of reason. Team changed to regular consistency, consistent carb per pt request. Started Ensure but pt prefers lower carb supplement so changed to Ensure Max. Intake since admission has been variable. Prior to admission it khoury been OK. Increased nutritional risk related to inconsistent intake but anticipate improvement with preferred consistency ASPEN MALNUTRITION ASSESSMENT: Date of completion: 11/14 NUTRITION FOCUSED PHYSICAL EXAM: N/A NUTRITION DIAGNOSIS: Nutrition Diagnosis 1: Increased nutrient needs (protein) Related to: Acute illness/injury Evidenced by: Inconsistent PO intakes, Patient interview, Physical finding INTERVENTION(S): Summary: Encouragement, Meals and snacks, Modify supplement Continue with consistent carb diet. Encouraged good intake. Changed supplement to ensure max TID. RD will continue to follow. GOAL(S): Adequate nutrition to meet estimated needs by next assessment, Prevent further unintended weight loss during admission MONITORING/EVALUATION: Appetite, PO intake, Stool patterns Jeremias Ibrahim RD LD CDE [phone]. Weekends [phone] 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 * Javad Sánchez - 11/14/2023 2:23 PM CST Physical Therapy Physical Therapy Progress [...] treatment team and contact the PT or PLUSH BRUSHER currently assigned to this patient. If a physical therapy clinician is not assigned to this patient, please call [phone]. 11/14/23 1421 PT Last Visit Session Type Treatment PT Received On 11/14/23 Safe Environment Arm band checked;Patient found in supine;Session completed bedside;Gait belt not utilized, see comment Subjective Agreeable to Therapy Family/Caregiver Present Yes Precautions Precautions Fall risk;Spinal/Back Weight Bearing Restrictions No Braces/Orthoses TLSO Precaution Handout Issued No Activity Tolerance Activity Tolerance Comments LUIS ANGEL: Somewhat hard Pain Assessment Pain Assessment 0-10 Pain Score 1 Pain Type Surgical pain Pain Location Back (Lumbar) Pain Orientation Generalized Pain Descriptors Aching;Dull Pain Frequency Constant/continuous Pain Interventions Repositioned Cognition Arousal/Alertness Alert;Appropriate responses to stimuli Orientation Oriented X4 (person, place, time, situation) Following Commands Follows all commands and directions without difficulty Compliance/Behavior Easy to engage Balance Balance Yes Static Sitting Balance Static Sitting-Balance Support Bilateral upper extremity supported Static Sitting-Sitting Surface Bed Static Sitting-Level of Assistance Moderate assistance Dynamic Sitting Balance Dynamic Sitting-Balance Support Bilateral upper extremity supported Dynamic Sitting-Balance Lateral lean;Forward lean;Trunk control activities Dynamic Sitting-Sitting Surface Bed Dynamic Sitting-Level of Assistance Moderate assistance Supine Supine-Exercises Upper extremity Equipment Theraband (RTB) Reps/Sets x15 Supine-Exercise Comments HEP; HOB elevated 30 Bed Mobility Bed Mobility Yes Bed Mobility 1 Bed Mobility From 1 Supine Bed Mobility Type 1 To and from Bed Mobility to 1 Side lying-right Level of Assistance 1 Moderate Assist Bed Mobility Comments 1 progressing towards min A. Pt required assistance rotating trunk to side-lying Bed Mobility 2 Bed Mobility From 2 Supine Bed Mobility Type 2 To and from Bed Mobility to 2 Side lying-left Level of Assistance 2 Moderate Assist Bed Mobility Comments 2 progressing towards min A. pt required assistance rotating trunk to side-lying left Bed Mobility 3 Bed Mobility From 3 Side lying-left Bed Mobility Type 3 To Bed Mobility to 3 Edge of bed Level of Assistance 3 Maximum Assist Transfers Transfer Yes Transfer 1 Transfer From 1 Bed Transfer Type 1 To Transfer to 1 Chair without arms Technique 1 Lateral with transfer board Transfer Device 1 No device Transfer Level of Assistance 1 Maximum Assist Trials/Comments 1 Max A x 1 with SPT guiding and ensuring safety behind patient Ambulation Ambulation No Stairs Stairs No Other Comments Other PT Comments Pt tolerated treatment well noting improvement with being able to move ankles andtoes. He continues to give good effort Basic Mobility - 6 Click How much [...] a bed to a chair including wheelchair? 2 How much help does the patient currently need: Walk in hospital room? 1 How much help from another person does the patient currently need: Climbing 3-5 steps with a railing? 1 Total 6 Click Score (range 6-24) 10 Score Interpretation 28.13 Safe Environment End of Therapy Session Safe Environment End of Therapy Session Patient left supine in bed;Call light within reach;Overbed table within reach Assessment Prognosis Good Problem List Decreased strength;Impaired balance;Decreased mobility;Decreased active movement Barriers to Discharge Current Mobility Status Plan Plan Continue with current plan;If this is the last note, consider this the discharge summary Recommendation/Plan PT Recommendation/Plan Inpatient Rehab Facility ([facility]) Patient at high risk for Falls;Readmission PT Frequency during current admission 5-7x/wk Treatment/Interventions during current admission Balance Training;Bed mobility;Midline orientation;Therapeutic activity;Therapeutic exercise Progress during current admission Progressing toward goals PT - Next Appointment 11/15/23 PT Evaluation Complete Yes Multi-Disciplinary Problems (from Physical Therapy) Active Problems Problem: Transfers Start Date: 11/10/23 Goal Start Date Expected End Date End Date STG - Transfer from bed to chair 11/10/23 11/24/23 -- Goal Details: Max A with or without slide board Goal Start Date Expected End Date End Date STG - Patient to transfer to and from sit to supine 11/10/23 11/24/23 -- Goal Details: Mod A Goal Start Date Expected End Date End Date STG - Patient will roll 11/10/23 11/24/23 -- Goal Details: Min A Problem: Balance Start Date: 11/10/23 Goal Start Date Expected End Date End Date STG - Maintains static sitting balance with upper extremity support 11/10/23 11/24/23 -- Goal Details: SBA for 5 minutes Cosigned by Radha Dunlap, PT at 11/14/2023 5:40 PM ELEC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 * Aileen Dunlap OT - 11/14/2023 1:30 PM CST Occupational Therapy 11/14/23 1330 General OT Missed Visit Reason Other (comment) (To xray per RN; OT to f/u as scheduling and availability permits) 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 * Marcial Yanez - 11/14/2023 9:34 AM CST 11/14/23 0900 Time Spent Start Time 0900 Stop Time 0920 Time Calculation (min) 20 min Patient Spiritual Assessment Spirituality Assessed Focus of Care Sikhism Affiliation Other (Comment) (no preference) Active in Temple No Clinical Encounter Type Visited With Patient Response Type (consult requested) Reason for visit Anxiety;Support Referral From Patient;Other (Comment) (Staff) Outcomes and Progress Preserve dignity and respect Achieved Demonstrating care and respect Achieved Establish rapport and connectedness Achieved Interventions Interventions Active listening (Patient advises feeling great with high optimism after session with PT and does not require spiritual care at this time.) [facility] Spiritual Care Note Resident Toll Collector Marcial Yanez Triage: [phone] 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 * Nasir Manzanares MD - 11/14/2023 5:08 AM CST Orthopaedic Spine Service Daily Progress Note Admit Date: 11/07/2023 Hospital Day: 7 [place] Dx: Acute cauda equina 2/2 hematoma Relevant PMHx: postop cardiac arrest and b/l PE on therapeutic anticoagulation, prostate CA s/p prostatectomy, GERD, obesity, CKD, UTI, melanoma Procedure(s): 10/23/23: L4-L5 decompression, TLIF, PSF 11/08/23: T5-L5 laminectomies w/hematoma evacuation and lumbar dural repair Interval History: 11/14: POD 6. AFVSS. Continues to work on transfers with PT and sitting up in a chair. Pain controlled. Exam stable. Plan: TTF when able. Wound vac down tomorrow (POD7). PT rec d/c to IPR (spinal cordinjury neurorehab) Objective Vitals: 24hr Min/Max: Temp Min: 36.6 ??C (97.8 ??F) Max: 37 ??C (98.6 ??F) Pulse Min: 58 Max: 75 BP Min: 124/83 Max: 158/96 Resp Min: 13 Max: 22 SpO2 Min: 90 % Max: 100 % I/O last 2 completed shifts: In: - Out: 1500 [Urine:1500] I/O this shift: In: - Out: 900 [Urine:900] Physical Exam: Gen: no acute distress Neuro: A&Ox3 Dressing: clean/dry/intact Wound Vac(s): Holding suction nicely, no apparent leaks Hemo Vac(s): Bile bags x2 to gravity Motor: Muscle Strength Right Left Shoulder abduction (C5) 5/5 5/5 Elbow flexion (C5/6) 5/5 5/5 Elbow extension (C7) 5/5 5/5 Wrist extension (C6) 5/5 5/5 Wrist flexion (C7) 5/5 5/5 Mangle Press Catcher (C8) 5/5 5/5 Interosseous of hand (T1) 5/5 5/5 Iliopsoas (L2/3) 0/5 0/5 Quadriceps (L3/4) 0/5 0/5 Tibialis anterior (L4/5) 2/5 0/5 Extensor hallicus longus (L5) 2/5 1/5 Gastrocsoleus complex (S1) 2/5 1/5 Sensation Left upper extremity: SILT C5 to T1 dermatomes. Right upper extremity: SILT C5 to T1 dermatomes. Left lower extremity: SILT L2 to S1 dermatomes. Right lower extremity: SILT L2 to S1 dermatomes. Long-tract signs: Negative Milner's BUE <2 beats clonus BLE Equivocal Babinski BLE Vascular: Bilateral Upper Extremity: 2+ radial pulse, fingers WWP Bilateral Lower Extremity: 2+ DP pulse, toes WWP Lab/Diagnostic Review: Recent Labs Lab Units 11/13/23201011/13/23200611/08/23 1505 11/08/23 1151 11/08/23 0418 11/07/23 2301 SODIUM mmol/L -- 136 < > 138 -- 141 POTASSIUM PLASMA mmol/L -- 4.6 < > 4.4 -- 4.2 CHLORIDE mmol/L -- 102 < > 108 -- 104 CO2 mmol/L -- 26 < > 22 -- 28 ANIONGAP mmol/L -- 8 < > 8 -- 9 GLUCOSE mg/dL -- 138 < > 181 -- 142 POC GLUCOSE MONITOR mg/dL 150 -- < > -- < > -- BUN SERUM mg/dL -- 27* < > 15 -- 14 CREATININE mg/dL -- 0.71* < > 0.82 -- 0.98 CALCIUM mg/dL -- 8.4* < > 8.0* -- 8.6 WBC K/cumm -- 12.6* < > 10.4* -- 12.0* HEMOGLOBIN, POC -- -- -- -- < > -- HEMOGLOBIN g/dL -- 9.1* < > 9.2* -- 9.5* HEMATOCRIT % -- 28.0* < > 27.4* -- 29.0* HEMATOCRIT POC -- -- -- -- < > -- PLATELETS K/cumm -- 188 < > 255 -- 343 APTT sec -- -- -- -- -- 32 INR -- -- -- 1.12 -- 1.11 < > = values in this interval not displayed. Micro: Lab Results Component Value Date MICROBIOLOGY Final Report: No growth 10/14/2023 MICROBIOLOGY Final Report: No growth 10/13/2023 MICROBIOLOGY Final Report: No growth 10/13/2023 MICROBIOLOGY Final Report: No growth 10/12/2023 MICROBIOLOGY Final Report: No growth 10/12/2023 MICROBIOLOGY (.) 10/12/2023 Final Report: Greater than or equal to 100,000 colonies/mL of Escherichia coli Greater than or equal to 100,000 colonies/mL of Escherichia coli #2 For susceptibility results, refer to accession number [id number] on the urine culture from 10/11/23 MICROBIOLOGY (.) 10/11/2023 Final Report: Greater than or equal to 100,000 colonies/mL of Escherichia coli Greater than or equal to 100,000 colonies/mL of Escherichia coli #2 MICROBIOLOGY 03/15/2023 Final Report: Less than 100,000 colonies/mL (clinically insignificant growth based on current clinical standards) MICROBIOLOGY Final Report: No growth 09/24/2019 Plan: 1. Pain control - pt strongly requesting no oxy/opioid medication 4. Anticoagulation per Heme, plan to hold for 2 weeks 5. Decadron 4 mg q.6 hours x7 days (until 11/15) 6. Q4 hour neuro checks 7. Drains d/c's on 11/12 and drain sites stitched with nylon 8. TLSO brace when out of bed; okay to start PT/OT 9. IVC filter placed 10. Dispo to spinal cord injury neurorehab 11. Wound vac in place until 11/15 Nasir Manzanares MD Department of Orthopaedic Surgery, PGY-2 [facility] in [place]/[facility] Please call with questions during daytime. See below for overnight issues. If you know the resident's name on the appropriate orthopaedic surgery team, please use [email or web address] to page resident directly. If questions arise and the appropriate resident can't be reached or you are calling overnight, please contact [phone] ([facility]- 7:30 PM - 6:30 AM - Floor Resident) or [phone] (24 hours/day - Consult Resident) Cosigned by Marcial Vu MD at 11/14/2023 9:34 AM ELEC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 Associated attestation - Marcial Vu Jr., MD - 11/14/2023 9:34 AM ELEC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 Attending Attestation I have seen and examined the patient on 11/14/23 in the Hospital. No events overnight. Pain controlled. Denies new numbness, paresthesias, or weakness. He has been working on moving bilateral toes and feet and feels that he is able to move them slightly more now compared to a few days ago. He is in good spirits this morning. Examination is unchanged. Plan today to work with PT and OT, taper steroids, transition to diabetic and high protein diet perpatient's request, full spine x-rays when able. Marcial Vu Jr., MD Wholesale Manager Department of Orthopaedic Surgery Division of Spine Surgery [facility] [employer] [place], [place] Supervisor Knitting done by [employer]; therefore, variances and inaccuracies may occur. * aJvad Sánchez - 11/13/2023 1:29 PM CST Physical Therapy Physical Therapy Progress [...] treatment team and contact the PT or PLUSH BRUSHER currently assigned to this patient. If a physical therapy clinician is not assigned to this patient, please call [phone]. 11/13/23 1329 PT Last Visit Session Type Treatment PT Received On 11/13/23 Safe Environment Arm band checked;Patient found sitting in chair;Session completed bedside;Gait belt not utilized, see comment Subjective Agreeable to Therapy Family/Caregiver Present Yes Precautions Precautions Fall risk;Spinal/Back Weight Bearing Restrictions Yes Braces/Orthoses TLSO Precaution Handout Issued No Activity Tolerance Activity Tolerance Comments LUIS ANGEL: hard Pain Assessment Pain Assessment No/denies pain Cognition Arousal/Alertness Alert;Appropriate responses to stimuli Orientation Oriented X4 (person, place, time, situation) Following Commands Follows all commands and directions without difficulty Compliance/Behavior Easy to engage Static Sitting Balance Static Sitting-Balance Support Feet supported Static Sitting-Sitting Surface Chair Static Sitting-Level of Assistance Independent Dynamic Sitting Balance Dynamic Sitting-Balance Support Feet supported Dynamic Sitting-Balance Forward lean Dynamic Sitting-Sitting Surface Chair Dynamic Sitting-Level of Assistance Close supervision Seated Seated-Exercises Upper extremity Seated-Exercise Type Scapular Equipment Theraband (red, yellow) Reps/Sets x15 Seated-Exercise Comments Rows, D2 Flexion, D1 extension, Internal Rotation, External Rotation Bed Mobility 1 Bed Mobility From 1 Supine Bed Mobility Type 1 To and from Bed Mobility to 1 Side lying-right Level of Assistance 1 Moderate Assist Bed Mobility Comments 1 Pt required assistance rotating trunk to side-lying Bed Mobility 2 Bed Mobility From 2 Supine Bed Mobility Type 2 To and from Bed Mobility to 2 Side lying-left Level of Assistance 2 Moderate Assist Bed Mobility Comments 2 pt required assistance rotating trunk to side-lying left Transfers Transfer Yes Transfer 1 Transfer From 1 Chair with arms Transfer Type 1 To Transfer to 1 Bed Technique 1 (Pia Lift) Transfer Device 1 Mechanical device Transfer Level of Assistance 1 Dependent Ambulation Ambulation No Basic Mobility - 6 [...] a bed to a chair including wheelchair? 2 How much help does the patient currently need: Walk in hospital room? 1 How much help from another person does the patient currently need: Climbing 3-5 steps with a railing? 1 Total 6 Click Score (range 6-24) 10 Score Interpretation 28.13 Safe Environment End of Therapy Session Safe Environment End of Therapy Session Patient left supine in bed;Call light within reach;Overbed table within reach Assessment Prognosis Good Problem List Decreased strength;Decreased mobility;Decreased active movement Barriers to Discharge Current Mobility Status Plan Plan Continue with current plan;If this is the last note, consider this the discharge summary Recommendation/Plan PT Recommendation/Plan Inpatient Rehab Facility ([facility]) Patient at high risk for Falls;Readmission Recommend Inpatient Rehab/Acute Rehab due to Ability to actively participate in intensive therapy 3hours/day, 5 days/week or 900 minutes per week;Highly motivated to participate in therapy PT Frequency during current admission 5-7x/wk Treatment/Interventions during current admission Balance Training;Bed mobility;Midline orientation;Strengthening;Therapeutic activity;Therapeutic exercise Progress during current admission Progressing toward goals PT - Next Appointment 11/14/23 PT Evaluation Complete Yes Multi-Disciplinary Problems (from Physical Therapy) Active Problems Problem: Transfers Start Date: 11/10/23 Goal Start Date Expected End Date End Date STG - Transfer from bed to chair 11/10/23 11/24/23 -- Goal Details: Max A with or without slide board Goal Start Date Expected End Date End Date STG - Patient to transfer to and from sit to supine 11/10/23 11/24/23 -- Goal Details: Mod A Goal Start Date Expected End Date End Date STG - Patient will roll 11/10/23 11/24/23 -- Goal Details: Min A Problem: Balance Start Date: 11/10/23 Goal Start Date Expected End Date End Date STG - Maintains static sitting balance with upper extremity support 11/10/23 11/24/23 -- Goal Details: SBA for 5 minutes Cosigned by Radha Dunlap, PT at 11/13/2023 5:19 PM ELEC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 * Veronica Vivas OT - 11/13/2023 12:54 PM CST Occupational Therapy Progress Note NOTE: This is [...] not assigned to this patient, please call [phone]. 11/13/23 1000 General Session Type Treatment OT Received On 11/13/23 Safe Environment Arm band checked;Patient found in supine Subjective Agreeable to Therapy Family/Caregiver Present Yes Current Functional Status OT Functional Mobility and son Precautions Precautions Spinal/Back;Fall risk Weight Bearing Restrictions Yes Braces/Orthoses TLSO Precaution Handout Issued No Precaution Comments reviewed precautions pt demonstrates throughout Pain Assessment Pain Assessment No/denies pain Balance Balance Yes Static Sitting Balance Static Sitting-Balance Support Feet supported Static Sitting-Sitting Surface Bed Static Sitting-Level of Assistance Minimum assistance;Contact guard Static Sitting-Comment/# of Minutes CGA-Min with unilater UE support on bed Dynamic Sitting Balance Dynamic Sitting-Balance Support Feet supported Dynamic Sitting-Balance Lateral lean;Forward lean;Reaching for objects Dynamic Sitting-Sitting Surface Bed Dynamic Sitting-Level of Assistance Moderate assistance Dynamic Sitting-Comments safety, maintaining upright position ADL ADLS (WDL) X Grooming Grooming: Where assessed Chair Grooming: Level of assistance Moderate Assist Grooming: Assistance with (setup task total balance) LE Dressing LE Dressing: Where assessed Supine, bed LE Dressing: Level of assistance Dependent Bed Mobility Bed Mobility Yes Bed Mobility 1 Bed Mobility From 1 Supine Bed Mobility Type 1 To and from Bed Mobility to 1 Side lying-left;Rolling left Level of Assistance 1 Moderate Assist Bed Mobility Comments 1 assist for FP Transfers Transfer Yes Toilet Transfers Toilet Transfer From Bed Toilet Transfer Type To Toilet Transfer to (drop arm chair) Toilet Transfer Technique Lateral Toilet Transfer: Equipment No device Toilet Transfers Maximal assistance (x2) Toilet Transfers Comments Max x2 for FP, balance, cueing for hand placement. use of sheet under bottom to complete lateral transfer from bed to drop arm chair RUE Assessment RUE Assessment WFL LUE Assessment LUE Assessment WFL Cognition Arousal/Alertness Alert;Appropriate responses to stimuli Attention Span Appears intact Memory Appears intact Current communication Appears Intact Orientation Oriented X4 (person, place, time, situation) Following Commands Follows all commands and directions without difficulty Safety Judgment Good awareness of safety precautions Awareness of Errors Good awareness of errors made Insight Fully aware of deficits Problem Solving Assistance required to identify errors made Compliance/Behavior Easy to engage Perseveration Not present Other Comments Comments pt reported being able to wiggle his toes today which is an improvement from yesterday. progressed transfers from bed to drop arm chair. tolerated session well Daily Activity - 6 Clicks Putting on and taking off regular lower body clothing 1 Bathing 2 Toileting 1 Putting on and taking off upper body clothing 2 Personal Grooming 2 Eating Meals 3 Total Score (range 6-24) 11 Score Interpretation 29.04 Safe Environment End of Therapy Session Safe Environment End of Therapy Session Patient left in recliner;Call light within reach;Overbed table within reach Assessment Problem List Decreased balance;Decreased ADL independence;Decreased IADL independence;Decreased upper extremity strength Barriers to Discharge Current Mobility Status Barrier Comments fall risk Plan Plan Continue with current plan;If this is the last note, consider this the discharge summary Recommendation/Plan OT Recommendation Inpatient Rehab Facility Patient at high risk for Falls;Readmission;Injury due to decreased ability to care for self;Injury due to balance deficits;Injury at home as patient has not returned to prior level of function Recommend Inpatient Rehab/Acute Rehab due to Ability [...] tasks;Requires multiple therapy disciplines to address functional deficits OT Frequency during current admission 5-7x/wk Treatment/Interventions during current admission ADL/IADL retraining;Balance Training;Bed mobility;Endurance training;Functional activity;Functional mobility training;Functional transfer training;Strengthening;Therapeutic activity;Therapeutic exercise;Transfer training Progress during current admission Progressing toward goals OT - Next Appointment 11/14/23 Multi-Disciplinary Problems (from Occupational Therapy) Active Problems Problem: Grooming Start Date: 11/10/23 Goal Start Date Expected End Date End Date STG - Patient will complete grooming 11/10/23 11/17/23 -- Goal Details: Spv in unsupported sitting Problem: Toileting Start Date: 11/10/23 Goal Start Date Expected End Date End Date STG - Patient will complete toileting tasks with 11/10/23 11/17/23 -- Goal Details: Mod A Problem: Transfers Start Date: 11/10/23 Goal Start Date Expected End Date End Date STG - Patient will perform toilet transfer 11/10/23 11/17/23 -- Goal Details: To/from BS with mod A Problem: OT Misc Start Date: 11/10/23 Goal Start Date Expected End Date End Date OT LTG - Misc 1 11/10/23 12/01/23 -- Goal Details: Pt will complete ADLs with spv 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 * Marcial Yanez - 11/13/2023 10:06 AM CST 11/13/23 1000 Time Spent Start Time 0950 Stop Time 1000 Time Calculation (min) 10 min Patient Spiritual Assessment Spirituality Assessed Unable to assess Sikhism Affiliation Other (Comment) (no preference) Clinical Encounter Type Visited With Patient not available (with care team) Response Type (consult request) Reason for visit Support;Anxiety Referral From Patient [facility] Spiritual Care Note Resident Toll Collector Marcial Yanez Triage: [phone] 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 * Nasir Manzanares MD - 11/13/2023 7:01 AM CST Orthopaedic Spine Service Daily Progress Note Admit Date: 11/07/2023 Hospital Day: 6 [facility] Dx: Acute cauda equina 2/2 hematoma Relevant PMHx: postop cardiac arrest and b/l PE on therapeutic anticoagulation, prostate CA s/p prostatectomy, GERD, obesity, CKD, UTI, melanoma Procedure(s): 10/23/23: L4-L5 decompression, TLIF, PSF 11/08/23: T5-L5 laminectomies w/hematoma evacuation and lumbar dural repair Interval History: POD5. AFVSS. No new labs to review. Both drains removed yesterday. PMR evaluated and recommends inpatient spinal cord injury rehabilitation. Exam: SILT BLE. RLE motor 2/5 TA/EHL/GSC, LLE 1/5 EHL/GSC o/w no motor BLE. Plan: TTF, TLSO brace when OOB. PT/OT. iVac x7days (until 11/15) Objective Vitals: 24hr Min/Max: Temp Min: 36.3 ??C (97.3 ??F) Max: 37 ??C (98.6 ??F) Pulse Min: 59 Max: 85 BP Min: 122/70 Max: 165/83 Resp Min: 13 Max: 22 SpO2 Min: 94 % Max: 100 % I/O last 2 completed shifts: In: 950 [P.O.:950] Out: 1546 [Urine:1525; Drains:21] No intake/output data recorded. Physical Exam: Gen: no acute distress Neuro: A&Ox3 Dressing: clean/dry/intact Wound Vac(s): Holding suction nicely, no apparent leaks Hemo Vac(s): Bile bags x2 to gravity Motor: Muscle Strength Right Left Shoulder abduction (C5) 5/5 5/5 Elbow flexion (C5/6) 5/5 5/5 Elbow extension (C7) 5/5 5/5 Wrist extension (C6) 5/5 5/5 Wrist flexion (C7) 5/5 5/5 Mangle Press Catcher (C8) 5/5 5/5 Interosseous of hand (T1) 5/5 5/5 Iliopsoas (L2/3) 0/5 0/5 Quadriceps (L3/4) 0/5 0/5 Tibialis anterior (L4/5) 2/5 0/5 Extensor hallicus longus (L5) 2/5 1/5 Gastrocsoleus complex (S1) 2/5 1/5 Sensation Left upper extremity: SILT C5 to T1 dermatomes. Right upper extremity: SILT C5 to T1 dermatomes. Left lower extremity: SILT L2 to S1 dermatomes. Right lower extremity: SILT L2 to S1 dermatomes. Long-tract signs: Negative Milner's BUE <2 beats clonus BLE Equivocal Babinski BLE Vascular: Bilateral Upper Extremity: 2+ radial pulse, fingers WWP Bilateral Lower Extremity: 2+ DP pulse, toes WWP Lab/Diagnostic Review: Recent Labs Lab Units 11/12/23213311/11/23213711/11/23 21311/08/23 1505 11/08/23 1151 11/08/23 0418 11/07/23 2301 SODIUM mmol/L -- -- 135 < > 138 -- 141 POTASSIUM PLASMA mmol/L -- -- 4.6 < > 4.4 -- 4.2 CHLORIDE mmol/L -- -- 103 < > 108 -- 104 CO2 mmol/L -- -- 24 < > 22 -- 28 ANIONGAP mmol/L -- -- 8 < > 8 -- 9 GLUCOSE mg/dL -- -- 159 < > 181 -- 142 POC GLUCOSE MONITOR mg/dL 206* < > -- < > -- < > -- BUN SERUM mg/dL -- -- 22 < > 15 -- 14 CREATININE mg/dL -- -- 0.81 < > 0.82 -- 0.98 CALCIUM mg/dL -- -- 8.2* < > 8.0* -- 8.6 WBC K/cumm -- -- 9.1 < > 10.4* -- 12.0* HEMOGLOBIN, POC -- -- -- -- -- < > -- HEMOGLOBIN g/dL -- -- 8.8* < > 9.2* -- 9.5* HEMATOCRIT % -- -- 25.8* < > 27.4* -- 29.0* HEMATOCRIT POC -- -- -- -- -- < > -- PLATELETS K/cumm -- -- 187 < > 255 -- 343 APTT sec -- -- -- -- -- -- 32 INR -- -- -- -- 1.12 -- 1.11 < > = values in this interval not displayed. Micro: Lab Results Component Value Date MICROBIOLOGY Final Report: No growth 10/14/2023 MICROBIOLOGY Final Report: No growth 10/13/2023 MICROBIOLOGY Final Report: No growth 10/13/2023 MICROBIOLOGY Final Report: No growth 10/12/2023 MICROBIOLOGY Final Report: No growth 10/12/2023 MICROBIOLOGY (.) 10/12/2023 Final Report: Greater than or equal to 100,000 colonies/mL of Escherichia coli Greater than or equal to 100,000 colonies/mL of Escherichia coli #2 For susceptibility results, refer to accession number [id number] on the urine culture from 10/11/23 MICROBIOLOGY (.) 10/11/2023 Final Report: Greater than or equal to 100,000 colonies/mL of Escherichia coli Greater than or equal to 100,000 colonies/mL of Escherichia coli #2 MICROBIOLOGY 03/15/2023 Final Report: Less than 100,000 colonies/mL (clinically insignificant growth based on current clinical standards) MICROBIOLOGY Final Report: No growth 09/24/2019 Plan: 1. Pain control - pt strongly requesting no oxy/opioid medication 4. Anticoagulation per Heme, plan to hold for 2 weeks 5. Decadron 4 mg q.6 hours x7 days (until 11/15) 6. Q4 hour neuro checks 7. Drains d/c's on 11/12 and drain sites stitched with nylon 8. TLSO brace when out of bed; okay to start PT/OT 9. IVC filter placed 10. Dispo to spinal cord injury neurorehab 11. Wound vac in place until 11/15 Nasir Manzanares MD Department of Orthopaedic Surgery, PGY-2 [facility] Please call with questions during daytime. See below for overnight issues. If you know the resident's name on the appropriate orthopaedic surgery team, please use [email or web address] to page resident directly. If questions arise and the appropriate resident can't be reached or you are calling overnight, please contact [phone] ([place]- 7:30 PM - 6:30 AM - Floor Resident) or [phone] (24 hours/day - Consult Resident) Cosigned by Marcial Vu MD at 11/13/2023 8:20 PM ELEC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 Associated attestation - Marcial Vu Jr., MD - 11/13/2023 8:20 PM ELEC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 Attending Attestation I have seen and examined the patient on 11/13/23 in the Hospital. I agree with the update, examination, and plan as documented in the resident's note. He is in good spirits. He feels that he is able to wiggle his toes and move his feet slightly more than what he was able to previously but examination is objectively unchanged. He spent 3-1/2 hours sitting in a chair today. Awaiting floor bed. Marcial Vu Jr., MD Wholesale Manager Department of Orthopaedic Surgery Division of Spine Surgery [facility] [place], [place] Supervisor Knitting done by [employer]; therefore, variances and inaccuracies may occur. * Nasir Manzanares MD - 11/12/2023 3:39 PM CST Brief Ortho Progress Note Two deep drains from the patient's back were removed. Drains were inspected and the entire drain was intact without concern for retained foreign bodies. Both drain sites were stitched in a baseball stitch fasion with 4-0 Nylon. Prior to closure, 2.5cc of lidocaine were used at each site to provide local anesthetic. The drain sites were covered with Mepalex Ag boarder. The wound vac was checked after the procedure and holding suction. Will maintain wound vac until 11/15. Nasir Manzanares MD Orthopaedic Surgery PGY2 Cosigned by Marcial Vu MD at 11/12/2023 8:38 PM ELEC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 * Shane Bowen OT - 11/12/2023 1:40 PM CST Occupational Therapy 11/12/23 1340 General OT Missed Visit Reason With other staff/receiving another service (Pt declined 2/2 just returning to bed from chair with nursing, PMR also in room having discussion with Pt and family members. OT will attempt at a later time/date.) 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 * Radha Dunlap, PT - 11/12/2023 9:48 AM CST Physical Therapy Physical Therapy Progress Note [...] treatment team and contact the PT or PLUSH BRUSHER currently assigned to this patient. If a physical therapy clinician is not assigned to this patient, please call [phone]. 11/12/23 0948 PT Last Visit Session Type Treatment PT Received On 11/12/23 Safe Environment Arm band checked;Gait belt not utilized, see comment Subjective Agreeable to Therapy Family/Caregiver Present No Precautions Precautions Spinal/Back;Fall risk Weight Bearing Restrictions No Braces/Orthoses TLSO Precaution Handout Issued No Activity Tolerance Activity Tolerance Comments Luis Angel: hard (transfer) Pain Assessment Pain Assessment 0-10 Pain Score 5 - Moderate pain Pain Location Rib cage Pain Orientation Right Pain Interventions Repositioned Cognition Arousal/Alertness Alert;Appropriate responses to stimuli Orientation Oriented X4 (person, place, time, situation) Following Commands Follows all commands and directions without difficulty Compliance/Behavior Easy to engage Static Sitting Balance Static Sitting-Balance Support Feet supported;Bilateral upper extremity supported Static Sitting-Sitting Surface Bed Static Sitting-Level of Assistance Minimum assistance (Min A- SBA) Dynamic Sitting Balance Dynamic Sitting-Balance Support Bilateral upper extremity supported;Feet supported Dynamic Sitting-Balance Lateral lean;Forward lean;Trunk control activities (Weight shifting in prep for transfer) Dynamic Sitting-Sitting Surface Bed Dynamic Sitting-Level of Assistance Moderate assistance Bed Mobility 1 Bed Mobility From 1 Supine Bed Mobility Type 1 To and from Bed Mobility to 1 Side lying-left;Side lying-right Level of Assistance 1 Moderate Assist Bed Mobility Comments 1 x 4 trials for carolin care and TLSO placement- PT asst for management of lower body Bed Mobility 2 Bed Mobility From 2 Side lying-left Bed Mobility Type 2 To Bed Mobility to 2 Edge of Bed Level of Assistance 2 Maximum Assist Bed Mobility Comments 2 (D) for B LE, excellent asst with trunk sidelying to sit Transfer 1 Transfer From 1 Bed Transfer Type 1 To Transfer to 1 Chair without arms (Drop arm recliner) Technique 1 To right;Squat pivot Transfer Device 1 No device Transfer Level of Assistance 1 Maximum Assist (installer helper present with SBA - Min A due to risk of posterior LOB) Trials/Comments 1 Draw sheet used to for force production and to reduce shear Ambulation Ambulation No Other Comments Other PT Comments Pt tolerated greater than 45 min activity with PT and RN. Pt and with many appropriate questions and demonsntrate emerging insight into rehab course here at [facility] and at [facility]. Pt verbalized appropriate, non-suicidal, concerns regarding his current mental health, WOMEN'S GARMENT FITTER notified via secure chat Basic Mobility - 6 Click How much [...] a bed to a chair including wheelchair? 2 How much help does the patient currently need: Walk in hospital room? 1 How much help from another person does the patient currently need: Climbing 3-5 steps with a railing? 1 Total 6 Click Score (range 6-24) 10 Score Interpretation 28.13 Safe Environment End of Therapy Session Safe Environment End of Therapy Session Patient left in recliner;RN notified;Call light within reach (Roho in place) Assessment Prognosis Good Problem List Decreased strength;Decreased endurance;Impaired balance;Decreased mobility;Pain;Orthopedic restrictions;Impaired tone Plan Plan Continue with current plan;If this is the last note, consider this the discharge summary Recommendation/Plan PT Recommendation/Plan Inpatient Rehab Facility ([facility]) Patient at high risk for Falls;Readmission Recommend Inpatient Rehab/Acute Rehab due to Ability to actively participate in intensive therapy 3hours/day, 5 days/week or 900 minutes per week;Highly motivated to participate in therapy;Impaired ability to complete functional mobility;Requires greater than 25% physical assistance with most mobility tasks;Requires multiple therapy disciplines to address functional deficits;Patient and caregiver require specialized skilled training due to new level of function/diagnosis;Requires skilled therapy interventions to address neurological deficits PT Frequency during current admission 5-7x/wk Treatment/Interventions during current admission Balance Training;Bed mobility;Functional activity;Functional transfer training;Neuromuscular re- education;Positioning;Parent/caregiver training and education;Orthotic management;Positioning equipment;Range of motion;Strengthening;Therapeutic activity;Therapeutic exercise;Transfer training Progress during current admission Progressing toward goals PT - Next Appointment 11/13/23 Multi-Disciplinary Problems (from Physical Therapy) Active Problems Problem: Transfers Start Date: 11/10/23 Goal Start Date Expected End Date End Date STG - Transfer from bed to chair 11/10/23 11/24/23 -- Goal Details: Max A with or without slide board Goal Start Date Expected End Date End Date STG - Patient to transfer to and from sit to supine 11/10/23 11/24/23 -- Goal Details: Mod A Goal Start Date Expected End Date End Date STG - Patient will roll 11/10/23 11/24/23 -- Goal Details: Min A Problem: Balance Start Date: 11/10/23 Goal Start Date Expected End Date End Date STG - Maintains static sitting balance with upper extremity support 11/10/23 11/24/23 -- Goal Details: SBA for 5 minutes 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 * Nasir Manzanares MD - 11/12/2023 9:41 AM CST Orthopaedic Spine Service Daily Progress Note Admit Date: 11/07/2023 Hospital Day: 5 [facility] Dx: Acute cauda equina 2/2 hematoma Relevant PMHx: postop cardiac arrest and b/l PE on therapeutic anticoagulation, prostate CA s/p prostatectomy, GERD, obesity, CKD, UTI, melanoma Procedure(s): 10/23/23: L4-L5 decompression, TLIF, PSF 11/08/23: T5-L5 laminectomies w/hematoma evacuation and lumbar dural repair Interval History: 11/12: POD4. AFVSS. Hgb 8.8 (9.7) s/p 1u pRBC yesterday. WBC 9.1. Drain 1 11/07. Drain 2 . Exam: SILT BLE. RLE motor 2/5 TA/EHL/GSC, LLE 1/5 EHL/GSC o/w no motor BLE. Plan: Neuro rehab PMR c/s, TLSO brace when OOB. PT/OT. iVac x7days. Objective Vitals: 24hr Min/Max: Temp Min: 36.4 ??C (97.6 ??F) Max: 36.7 ??C (98.1 ??F) Pulse Min: 58 Max: 77 BP Min: 117/64 Max: 164/83 Resp Min: 15 Max: 21 SpO2 Min: 97 % Max: 100 % I/O last 2 completed shifts: In: 706.7 [P.O.:400; Blood:306.7] Out: 1838 [Urine:1800; Drains:38] I/O this shift: In: 750 [P.O.:750] Out: 396 [Urine:375; Drains:21] Physical Exam: Gen: no acute distress Neuro: A&Ox3 Dressing: clean/dry/intact Wound Vac(s): Holding suction nicely, no apparent leaks Hemo Vac(s): Bile bags x2 to gravity Motor: Muscle Strength Right Left Shoulder abduction (C5) 5/5 5/5 Elbow flexion (C5/6) 5/5 5/5 Elbow extension (C7) 5/5 5/5 Wrist extension (C6) 5/5 5/5 Wrist flexion (C7) 5/5 5/5 Mangle Press Catcher (C8) 5/5 5/5 Interosseous of hand (T1) 5/5 5/5 Iliopsoas (L2/3) 0/5 0/5 Quadriceps (L3/4) 0/5 0/5 Tibialis anterior (L4/5) 2/5 0/5 Extensor hallicus longus (L5) 2/5 1/5 Gastrocsoleus complex (S1) 2/5 1/5 Sensation Left upper extremity: SILT C5 to T1 dermatomes. Right upper extremity: SILT C5 to T1 dermatomes. Left lower extremity: SILT L2 to S1 dermatomes. Right lower extremity: SILT L2 to S1 dermatomes. Long-tract signs: Negative Milner's BUE <2 beats clonus BLE Equivocal Babinski BLE Vascular: Bilateral Upper Extremity: 2+ radial pulse, fingers WWP Bilateral Lower Extremity: 2+ DP pulse, toes WWP Lab/Diagnostic Review: Recent Labs Lab Units 11/12/23 0759 11/11/23 2138 11/11/23 2135 11/08/23 1505 11/08/23 1151 11/08/23 0418 11/07/23 2301 SODIUM mmol/L -- -- 135 < > 138 -- 141 POTASSIUM PLASMA mmol/L -- -- 4.6 < > 4.4 -- 4.2 CHLORIDE mmol/L -- -- 103 < > 108 -- 104 CO2 mmol/L -- -- 24 < > 22 -- 28 ANIONGAP mmol/L -- -- 8 < > 8 -- 9 GLUCOSE mg/dL -- -- 159 < > 181 -- 142 POC GLUCOSE MONITOR mg/dL 128 < > -- < > -- < > -- BUN SERUM mg/dL -- -- 22 < > 15 -- 14 CREATININE mg/dL -- -- 0.81 < > 0.82 -- 0.98 CALCIUM mg/dL -- -- 8.2* < > 8.0* -- 8.6 WBC K/cumm -- -- 9.1 < > 10.4* -- 12.0* HEMOGLOBIN, POC -- -- -- -- -- < > -- HEMOGLOBIN g/dL -- -- 8.8* < > 9.2* -- 9.5* HEMATOCRIT % -- -- 25.8* < > 27.4* -- 29.0* HEMATOCRIT POC -- -- -- -- -- < > -- PLATELETS K/cumm -- -- 187 < > 255 -- 343 APTT sec -- -- -- -- -- -- 32 INR -- -- -- -- 1.12 -- 1.11 < > = values in this interval not displayed. Micro: Lab Results Component Value Date MICROBIOLOGY Final Report: No growth 10/14/2023 MICROBIOLOGY Final Report: No growth 10/13/2023 MICROBIOLOGY Final Report: No growth 10/13/2023 MICROBIOLOGY Final Report: No growth 10/12/2023 MICROBIOLOGY Final Report: No growth 10/12/2023 MICROBIOLOGY (.) 10/12/2023 Final Report: Greater than or equal to 100,000 colonies/mL of Escherichia coli Greater than or equal to 100,000 colonies/mL of Escherichia coli #2 For susceptibility results, refer to accession number [id number] on the urine culture from 10/11/23 MICROBIOLOGY (.) 10/11/2023 Final Report: Greater than or equal to 100,000 colonies/mL of Escherichia coli Greater than or equal to 100,000 colonies/mL of Escherichia coli #2 MICROBIOLOGY 03/15/2023 Final Report: Less than 100,000 colonies/mL (clinically insignificant growth based on current clinical standards) MICROBIOLOGY Final Report: No growth 09/24/2019 Plan: 1. Pain control - pt strongly requesting no oxy/opioid medication 4. Anticoagulation per Heme, plan to hold for 2 weeks 5. Decadron 4 mg q.6 hours x7 days (until 11/15) 6. Q.2 hour neuro checks 7. Will d/c drains today and stitch drain sites with nylon - d/c ancef/vanc when drains out 8. TLSO brace when out of bed; okay to start PT/OT 9. IVC filter placed 10. Neuro Rehab PM&R c/s placed Nasir Manzanares MD Department of Orthopaedic Surgery, PGY-2 [facility] [place] Please call with questions during daytime. See below for overnight issues. If you know the resident's name on the appropriate orthopaedic surgery team, please use [email or web address] to page resident directly. If questions arise and the appropriate resident can't be reached or you are calling overnight, please contact [phone] ([facility] 7:30 PM - 6:30 AM - Floor Resident) or [phone] (24 hours/day - Consult Resident) Cosigned by Marcial Vu MD at 11/12/2023 8:33 PM ELEC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 Associated attestation - Marcial Vu Jr., MD - 11/12/2023 8:33 PM ELEC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 Attending Attestation I have seen and examined the patient on 11/12/23 in the Hospital. No events overnight. Pain controlled. He is in good spirits this evening. He feels that he is able to move his feet particularly the left foot more today than before. Drains were removed today at thebedside. Seen by Neuro Rehab PM & R earlier today. Hemoglobin responded appropriately to blood transfusion yesterday. On exam, he has 2/5 strength in the right tibialis anterior, EHL, and gastroc and 1/5 strength in the left tibialis anterior, EHL, and gastroc. Otherwise, 0/5 strength throughout bilateral lower extremities. Sensation is intact to light touch throughout bilateral lower extremities. Plan for pain control, PT/OT, no blood thinners. Likely transferred to the floor this evening versus tomorrow. Marcial Vu Jr., MD Wholesale Manager Department of Orthopaedic Surgery Division of Spine Surgery [facility], [place] Supervisor Knitting done by [employer]; therefore, variances and inaccuracies may occur. * Irene Oropeza MD - 11/12/2023 7:26 AM CST Neurosurgery Consult Progress Note 11/12/2023 Hospital Course/Notable Events 11/08 OR for T5-L5 epidural hematoma evac. Neurosurgery consulted for intraoperative durotomy repair 11/[address] PE with decrease in clot burden. 11/10: increased bowel reg, worked with OT 11/11 PHOEBE Subjective Nausea . Objective Physical Exam Awake, R, FC Ox3 CNGI BUE 5/5 BLE 0/5 except for RLE 2/5 DF SILT Drains x2 (bile bag) Vitals 24hr min/max vitals: Temp Min: 36.4 ??C (97.6 ??F) Max: 36.7 ??C (98.1 ??F) Pulse Min: 58 Max: 77 Resp Min: 15 Max: 21 SpO2 Min: 97 % Max: 100 % MAP (mmHg) Min: 78 Max: 105 Labs Lab Results Component Value Date SODIUM 135 11/11/2023 SODIUM 135 11/10/2023 SODIUM 135 11/09/2023 Lab Results Component Value Date WBC 9.1 11/11/2023 WBC 10.1 (H) 11/11/2023 WBC 9.2 11/10/2023 HGB 8.8 (L) 11/11/2023 HGB 9.7 (L) 11/11/2023 HGB 7.5 (L) 11/10/2023 LABPLAT 187 11/11/2023 LABPLAT 226 11/11/2023 LABPLAT 211 11/10/2023 Lab Results Component Value Date INR 1.12 11/08/2023 INR 1.11 11/07/2023 INR 1.16 10/26/2023 PT 12.8 11/08/2023 PT 12.6 11/07/2023 PT 13.2 10/26/2023 APTT 32 11/07/2023 APTT 64 (H) 10/26/2023 APTT 74 (H) 10/26/2023 Assessment/Plan Hospital Day: 6 Hira Evans is a 73 y.o. year old male who was seen by the neurosurgery service for intraoperative durotomy repair. This consult has been staffed with Dr. Cuevas. Plan Care per ortho spine Drains x2 bile bags Responsible Team Irene Oropeza MD (du) [phone] Alice Dodge MD (senior) Octavio Matute MD (chief) Please contact the resident in bold with any questions. If it is after 6pm or you are unable to reach the residents listed, please page the Neurosurgery Call Pager at [phone]. Note created by Irene Oropeza MD on 11/12/2023 at 7:26 AM. Cosigned by Simeon Cuevas MD at 11/12/2023 2:24 PM ELEC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 * Ata Marquez MD - 11/11/2023 11:07 AM CST Orthopaedic Spine Service Daily Progress Note Admit Date: 11/07/2023 Hospital Day: 4 Cl[place]isy Dx: cauda equina Relevant PMHx: postop cardiac arrest and b/l PE on therapeutic anticoagulation, prostate CA s/p prostatectomy, GERD, obesity, CKD, UTI, melanoma Procedure(s): 10/23/23: L4-L5 decompression, TLIF, PSF 11/08/23: T5-L5 laminectomies w/hematoma evacuation Interval History: 11/11: POD3. AFVSS. NAEO. Denies chest pain, SOB, nausea/vomiting. Hgb 7.5 (8.6), Cr 0.82 (0.99), Glucose 207. Drain 1 01/09, Drain 2 11/28. PT/OT recommending rehab. Exam: RLE motor 2/5 TA/EHL, no motorIP/Q/H/GSC. LLE wiggles toes o/w no motor. SILT throughout. Plan: Transfuse 1 unit pRBCs. Neuro rehab consult. TLSO brace when OOB. PT/OT. Continue ancef/vanc while drains are in. Maintain drains to bile bags to gravity. iVac for 7 days. Objective Vitals: 24hr Min/Max: Temp Min: 36.6 ??C (97.8 ??F) Max: 36.7 ??C (98.1 ??F) Pulse Min: 64 Max: 90 BP Min: 132/82 Max: 164/87 Resp Min: 15 Max: 23 SpO2 Min: 98 % Max: 100 % I/O last 2 completed shifts: In: 830 [P.O.:830] Out: 1185 [Urine:1150; Drains:35] I/O this shift: In: - Out: 262 [Urine:250; Drains:12] Physical Exam: Gen: no acute distress Neuro: A&Ox3 Dressing: clean/dry/intact Wound Vac(s): Holding suction nicely, no apparent leaks Hemo Vac(s): Bile bags x2 to gravity Motor: Muscle Strength Right Left Shoulder abduction (C5) 5/5 5/5 Elbow flexion (C5/6) 5/5 5/5 Elbow extension (C7) 5/5 5/5 Wrist extension (C6) 5/5 5/5 Wrist flexion (C7) 5/5 5/5 Mangle Press Catcher (C8) 5/5 5/5 Interosseous of hand (T1) 5/5 5/5 Iliopsoas (L2/3) 0/5 0/5 Quadriceps (L3/4) 0/5 0/5 Tibialis anterior (L4/5) 2/5 0/5 Extensor hallicus longus (L5) 2/5 0/5 Gastrocsoleus complex (S1) 2/5 0/5 *Patient able to wiggle digits 2-5 on the LLE Sensation Left upper extremity: SILT C5 to T1 dermatomes. Right upper extremity: SILT C5 to T1 dermatomes. Left lower extremity: SILT L2 to S1 dermatomes. Right lower extremity: SILT L2 to S1 dermatomes. Long-tract signs: Negative Milner's BUE <2 beats clonus BLE Equivocal Babinski BLE Vascular: Bilateral Upper Extremity: 2+ radial pulse, fingers WWP Bilateral Lower Extremity: 2+ DP pulse, toes WWP Lab/Diagnostic Review: Recent Labs Lab Units 11/11/23 0833 11/10/23 2313 11/08/23 1505 11/08/23 1151 11/08/23 0418 11/07/23 2301 SODIUM mmol/L -- 135 < > 138 -- 141 POTASSIUM PLASMA mmol/L -- 4.3 < > 4.4 -- 4.2 CHLORIDE mmol/L -- 104 < > 108 -- 104 CO2 mmol/L -- 24 < > 22 -- 28 ANIONGAP mmol/L -- 7 < > 8 -- 9 GLUCOSE mg/dL -- 118 < > 181 -- 142 POC GLUCOSE MONITOR mg/dL 141 -- < > -- < > -- BUN SERUM mg/dL -- 22 < > 15 -- 14 CREATININE mg/dL -- 0.82 < > 0.82 -- 0.98 CALCIUM mg/dL -- 7.9* < > 8.0* -- 8.6 WBC K/cumm -- 9.2 < > 10.4* -- 12.0* HEMOGLOBIN, POC -- -- -- -- < > -- HEMOGLOBIN g/dL -- 7.5* < > 9.2* -- 9.5* HEMATOCRIT % -- 22.6* < > 27.4* -- 29.0* HEMATOCRIT POC -- -- -- -- < > -- PLATELETS K/cumm -- 211 < > 255 -- 343 APTT sec -- -- -- -- -- 32 INR -- -- -- 1.12 -- 1.11 < > = values in this interval not displayed. Micro: Lab Results Component Value Date MICROBIOLOGY Final Report: No growth 10/14/2023 MICROBIOLOGY Final Report: No growth 10/13/2023 MICROBIOLOGY Final Report: No growth 10/13/2023 MICROBIOLOGY Final Report: No growth 10/12/2023 MICROBIOLOGY Final Report: No growth 10/12/2023 MICROBIOLOGY (.) 10/12/2023 Final Report: Greater than or equal to 100,000 colonies/mL of Escherichia coli Greater than or equal to 100,000 colonies/mL of Escherichia coli #2 For susceptibility results, refer to accession number [id number] on the urine culture from 10/11/23 MICROBIOLOGY (.) 10/11/2023 Final Report: Greater than or equal to 100,000 colonies/mL of Escherichia coli Greater than or equal to 100,000 colonies/mL of Escherichia coli #2 MICROBIOLOGY 03/15/2023 Final Report: Less than 100,000 colonies/mL (clinically insignificant growth based on current clinical standards) MICROBIOLOGY Final Report: No growth 09/24/2019 Plan: 1. Pain control 2. CT/PE reassuring with decreased emboli burden 3. MAPs >80 mmHg x48h 4. Anticoagulation per Heme, plan to hold for 2 weeks 5. Decadron 4 mg q.6 hours x7 days 6. Q.2 hour neuro checks 7. Maintain drains; continue vancomycin and Ancef while drains are in place 8. TLSO brace when out of bed; okay to start PT/OT 9. IVC filter placed Ata Marquez M.D. Department of Orthopaedic Surgery, PGY-3 [facility] [place] Dr. Ata Marquez dictating using [employer]. Dictation variances may occur. Please call with questions during daytime. See below for overnight issues. If you know the resident's name on the appropriate orthopaedic surgery team, please use [email or web address] to page resident directly. If questions arise and the appropriate resident can't be reached or you are calling overnight, please contact [phone] (Debord- 7:30 PM - 6:30 AM - Floor Resident) or [phone] (24 hours/day - Consult Resident) Cosigned by Marcial Vu MD at 11/12/2023 8:33 PM ELEC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 Associated attestation - Marcial Vu Jr., MD - 11/12/2023 8:33 PM ELEC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 Images from the original note were not included. I saw Mr. Evans at the bedside this morning. No events overnight. Pain controlled. Denies new numbness, paresthesias, or weakness. Worked on transfers yesterday with PT/OT. Exam: AO x3, AFVSS. 5/5 strength and intact sensation throughout BUE. 2/5 R TA, EHL, GSC; 1/5 L EHL, GSC; otherwise 0/5 strength throughout BLE. SILT throughout BLE. Drains x2 attached to bile bags with serosanguinous output. Plan: 1U PRBCs PT/OT for transfers Pain control Anticoagulation per Heme, plan to hold for 2 weeks Maintain drains; continue vancomycin and Ancef while drains are in place TLSO brace when out of bed Neuro Rehab PM&R consult Marcial Vu Jr., MD Wholesale Manager Department of Orthopaedic Surgery Division of Spine Surgery [place], [place] * Marcial Vu MD - 11/11/2023 10:11 AM CST I saw Mr. Evans at the bedside this morning. No events overnight. Pain controlled. Denies new numbness, paresthesias, or weakness. Worked on transfers yesterday with PT/OT. Exam: AO x3, AFVSS. 5/5 strength and intact sensation throughout BUE. 2/5 R TA, EHL, GSC; 1/5 L EHL, GSC; otherwise 0/5 strength throughout BLE. SILT throughout BLE. Drains x2 attached to bile bags with serosanguinous output. Plan: 1U PRBCs PT/OT for transfers Pain control Anticoagulation per Heme, plan to hold for 2 weeks Maintain drains; continue vancomycin and Ancef while drains are in place TLSO brace when out of bed Neuro Rehab PM&R consult Marcial Vu Jr., MD Wholesale Manager Department of Orthopaedic Surgery Division of Spine Surgery [place], [place] 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 * Artie Real MD PhD - 11/11/2023 9:02 AM CST Neurosurgery Consult Progress Note 11/11/2023 Hospital Course/Notable Events 11/08 OR for T5-L5 epidural hematoma evac. Neurosurgery consulted for intraoperative durotomy repair 11/[address] PE with decrease in clot burden. 11/10: increased bowel reg, worked with OT Subjective Nausea . Objective Physical Exam Awake, R, FC Ox3 CNGI BUE 5/5 BLE 0/5 except for RLE 2/5 DF SILT Drains x2 (bile bag) Vitals 24hr min/max vitals: Temp Min: 36.6 ??C (97.8 ??F) Max: 36.7 ??C (98.1 ??F) Pulse Min: 65 Max: 90 Resp Min: 15 Max: 23 SpO2 Min: 98 % Max: 100 % MAP (mmHg) Min: 88 Max: 108 Labs Lab Results Component Value Date SODIUM 135 11/10/2023 SODIUM 135 11/09/2023 SODIUM 133 (L) 11/09/2023 Lab Results Component Value Date WBC 9.2 11/10/2023 WBC 10.9 (H) 11/09/2023 WBC 11.9 (H) 11/09/2023 HGB 7.5 (L) 11/10/2023 HGB 8.6 (L) 11/09/2023 HGB 8.5 (L) 11/09/2023 LABPLAT 211 11/10/2023 LABPLAT 225 11/09/2023 LABPLAT 219 11/09/2023 Lab Results Component Value Date INR 1.12 11/08/2023 INR 1.11 11/07/2023 INR 1.16 10/26/2023 PT 12.8 11/08/2023 PT 12.6 11/07/2023 PT 13.2 10/26/2023 APTT 32 11/07/2023 APTT 64 (H) 10/26/2023 APTT 74 (H) 10/26/2023 Assessment/Plan Hospital Day: 5 Hira Evans is a 73 y.o. year old male who was seen by the neurosurgery service for intraoperative durotomy repair. This consult has been staffed with Dr. Cuevas. Plan Care per ortho spine Drains x2 bile bags Responsible Team Farhan ([phone]) Aum Please contact the resident in bold with any questions. If it is after 6pm or you are unable to reach the residents listed, please page the Neurosurgery Call Pager at [phone]. Note created by Artie Real MD PhD on 11/11/2023 at 9:02 AM. Cosigned by Simeon Cuevas MD at 11/11/2023 11:19 AM ELEC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 * Javad Sow, PT - 11/10/2023 2:36 PM CST Physical Therapy Physical Therapy Initial Assessment NOTE: This is a summary note for the jones assessments completed during the evaluation session. For full details, review chart review for all flowsheets documented on by this physical therapist on thisdate. Vital signs documented in vital signs flowsheet. 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, c/f cauda equina s/p T5-L5 laminectomies with hematoma evacuation, dural tear repair resultsin above listed activity deficits and impairments which prevent full participation in home and community mobility Barriers to Discharge: Current Mobility Status, Inaccessible home environment, Home environment challenged Plan Plan Plan : Plan of care [...] therapy, Impaired ability to complete functional mobility, Likely to return to the community at discharge with support system in place, Requires greater than 25% physical assistance with most mobility tasks, Requires multiple therapy disciplines to address functional deficits, Patient and caregiver require specialized skilled training due to new level of function/diagnosis PT Frequency during current admission: 5-7x/wk Treatment/Interventions during current admission: Balance Training, Bed mobility, Endurance training, Functional activity, Functional transfer training, Therapeutic exercise, Transfer training, Therapeutic activity, Strengthening, Positioning PT - Next Appointment: 11/12/23 PT Evaluation Complete: Yes General Information General Chart Reviewed: Yes Session Type: Evaluation (Co-Eval with OT) PT Received On: 11/10/23 Safe Environment: Patient found in supine, Arm band checked Subjective: Agreeable to Therapy Family/Caregiver Present: Yes (spouse and son) Physical Therapy-Patient Goal: to get better Prior Function Prior Function Level of Tensas: Independent functional transfers, Independent with ambulation Lives With: Spouse Receives Help From: Spouse/Significant other, Family (FT assist) Fall within the last 6 months: No Home Living Home Living Type of Home: House Home Layout: One level Home Access: Stairs to enter with rails Entrance Stairs-Rails: Right Entrance Stairs-Number of Steps: 2 Home Mobility Equipment-Available: Wheeled walker Home Mobility Equipment-Currently Using: Wheeled walker Additional Comments: patient was ambulating with walker following d/c from hospital, was performingADLs with supervision Precautions Precautions Precautions: Spinal/Back, Fall risk Braces/Orthoses: TLSO (donned in supine) Precaution Comments: reviewed precautions. PPE worn: mask, gloves Pain Pain Assessment Pain Assessment: No/denies pain [...] Score Interpretation: 8 Bed Mobility Bed Mobility Bed Mobility: Yes Bed Mobility 1 Bed Mobility From 1: Supine Bed Mobility Type 1: To and from Bed Mobility to 1: Rolling right, Rolling left Level of Assistance 1: Maximum Assist Bed Mobility Comments 1: assist to position BLE, force production to rotate trunk, log roll with HOB flat Bed Mobility 2 Bed Mobility From 2: Supine Bed Mobility Type 2: To Bed Mobility to 2: Edge of Bed Level of Assistance 2: Maximum Assist (assist of 2) Bed Mobility Comments 2: assist to maneuver BLE and elevate trunk, position hips; log roll with HOBflat Transfers Transfers Transfer: Yes Transfer 1 Transfer From 1: Sit Transfer Type 1: To and from Transfer to 1: Stand Technique 1: Sit to stand, Stand to sit Transfer Device 1: No device Transfer Level of Assistance 1: Dependent (assist of 2) Trials/Comments 1: assist for force production, blocking BLE, anterior weight shift, balance; able to clear hips second attempt Transfers 2 Transfer From 2: Bed Transfer Type 2: To Transfer to 2: Chair with arms Technique 2: Lateral Transfer Device 2: Mechanical device Transfer Level of Assistance 2: Dependent Trials/Comments 2: use of pia lift Balance Static Sitting Balance Static Sitting-Balance Support: Feet supported, Bilateral upper extremity supported Static Sitting-Sitting Surface: Bed Static Sitting-Level of Assistance: Maximum assistance, Minimum assistance Static Sitting-Comment/# of Minutes: initial max A due to posterior lean, progressed to min A with positioning Ambulation Ambulation Ambulation: No Ambulation 1 Ambulation Comments 1: no formal balance assessment due to assist level needed with mobility Stairs Curbs RLE Assessment RLE Assessment RLE Assessment: Exceptions to WFL Strength RLE R Hip ABduction: 0/5 R Hip ADduction: 0/5 R Knee Flexion: 0/5 R Knee Extension: 1/5 R Ankle Dorsiflexion: 2/5 R Ankle Plantar Flexion: 2/5 LLE Assessment LLE Assessment LLE Assessment: Exceptions to WFL Strength LLE L Hip ABduction: 0/5 L Hip ADduction: 0/5 L Knee Flexion: 0/5 L Knee Extension: 0/5 L Ankle Dorsiflexion: 2-/5 L Ankle Plantar Flexion: 2-/5 Equipment Used Safe Environment End of Session Safe Environment End of Therapy Session: Patient left in recliner, RN notified, Overbed table within reach, Call light within reach Other Comments Other Comments Other PT Comments: Co-Evaluation with OT. Patient agreeable to therapy. Performed bed mobility withpatient and sitting EOB. Transferred to chair with use of pia lift. Patient demonstrates limited active movement BLE. Patient motivated to work with therapy and agreeable to PT POC and goals. PT Goals Multi-Disciplinary Problems (from Physical Therapy) Active Problems Problem: Transfers Start Date: 11/10/23 Goal Start Date Expected End Date End Date STG - Transfer from bed to chair 11/10/23 11/24/23 -- Goal Details: Max A with or without slide board Goal Start Date Expected End Date End Date STG - Patient to transfer to and from sit to supine 11/10/23 11/24/23 -- Goal Details: Mod A Goal Start Date Expected End Date End Date STG - Patient will roll 11/10/23 11/24/23 -- Goal Details: Min A Problem: Balance Start Date: 11/10/23 Goal Start Date Expected End Date End Date STG - Maintains static sitting balance with upper extremity support 11/10/23 11/24/23 -- Goal Details: SBA for 5 minutes 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 * Leila Vela, OT - 11/10/2023 2:12 PM CST Occupational Therapy Occupational Therapy Initial Assessment NOTE:This is a summary note for the jones assessments completed during the evaluation session. For full details, review chart review for all flowsheets documented on by this Occupational Therapist on this date. Vital signs documented in vital signs flowsheet. Assessment Assessment Problem List: Decreased ADL independence, Decreased IADL independence, Decreased endurance, Decreased balance, Decreased functional mobility, Pain, Decreased trunk control for functional activities Barriers to Discharge: Current ADL Status, Current Mobility Status Plan Plan Plan: Plan of care [...] 25% physical assistance with most mobility tasks, Requires greater than 25% physical assistance with most ADL tasks, Requires multiple therapy disciplines to address functionaldeficits OT Frequency during current admission: 5-7x/wk Treatment/Interventions during current admission: ADL/IADL retraining, Balance Training, Bed mobility, Compensatory technique education, Endurance training, Functional activity, Functional mobility training, Functional transfer training, Strengthening, Therapeutic activity, Therapeutic exercise, Transfer training OT - Next Appointment: 11/12/23 OT - OK to Discharge: No OT Evaluation Complete: Yes General Information General Chart Reviewed: Yes Session Type: Evaluation OT Received On: 11/10/23 Safe Environment: Arm band checked, Patient found in supine, Gait belt not utilized, see comment (pia lift utilized) Subjective: Agreeable to Therapy Family/Caregiver Present: Yes ( and son) Occupational Therapy-Patient Goal: pt agreeable to OT POC Precautions Precautions Precautions: Fall risk, Spinal/Back Braces/Orthoses: TLSO (donned in supine) Precaution Comments: OT reviewed precautions, pt verbalized understanding Home Living Home Living Type of Home: House Bathroom Shower/Tub: Walk-in shower with threshold Bathroom Toilet: Standard Bathroom Equipment: Toilet raiser Home Mobility Equipment-Available: Wheeled walker Home Mobility Equipment-Currently Using: Wheeled walker Prior Function Prior Function Level of Tensas: Independent with ADLs, Independent functional transfers, Independent with ambulation, Needs assistance with homemaking Lives With: Spouse Receives Help From: Spouse/Significant other, Family (time checker assist available) Driving: Yes (has not driven for several weeks) ADL Assistance: Independent (pts provided spv in the last few weeks) Instrumental ADL (IADL) Assistance: (completed by /family) 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 Fall within the last 6 months: No Activities of Daily Living Grooming Grooming: Where assessed: Chair Grooming: Level of assistance: Moderate Assist (unable to tolerate in standing) Grooming: Assistance with: Safety LE Dressing LE Dressing: Where assessed: Supine, bed LE Dressing: Level of assistance: Dependent Toileting Toileting: Where assessed: Supine, bed Toileting: Level of assistance: Dependent Toilet Transfers Toilet Transfers: Not tested Toilet Transfers Comments: 2/2 safety concern Cognition Cognition Arousal/Alertness: Alert, Appropriate responses to stimuli Attention Span: Appears intact Current communication: Appears Intact Orientation : Oriented X4 (person, place, time, situation) Following Commands: Follows all commands and directions without difficulty Safety Judgment: Good awareness of safety precautions Awareness of Errors: Decreased awareness of errors Insight: Decreased awareness of deficits Problem Solving: Assistance required to generate solutions Compliance/Behavior: Easy to engage, Anxious 6 Clicks Daily Activity - 6 Clicks Putting on and taking off regular lower body clothing: Total Bathing: A lot Toileting: Total Putting on and taking off upper body clothing: A Lot Personal Grooming: A lot Eating Meals: A little Total Score (range 6-24): 11 Score Interpretation: 11 Balance Static Sitting Balance Static Sitting-Balance Support: Feet supported, Bilateral upper extremity supported Static Sitting-Sitting Surface: Bed Static Sitting-Level of Assistance: Maximum assistance, Minimum assistance Static Sitting-Comment/# of Minutes: initial max A 2/2 posterior lean, progressing to min A for steadying when positioned by therapist Transfers Transfers Transfer: Yes Transfer 1 Transfer From 1: Sit Transfer Type 1: To and from Transfer to 1: Stand Technique 1: Sit to stand, Stand to sit Transfer Device 1: No device Transfer Level of Assistance 1: Dependent Trials/Comments 1: x2 reps of attempted stand. Pt unable to achieve stand on either attempt despitemax A for force production, LE block, anterior weight shift, balance. On second attempt, pt able toclear hips for bed Transfers 2 Transfer From 2: Bed Transfer Type 2: To Transfer to 2: Chair with arms Technique 2: Lateral Transfer Device 2: Mechanical device Transfer Level of Assistance 2: Dependent Trials/Comments 2: assist of 2 with pia lift Bed Mobility Bed Mobility Bed Mobility: Yes Bed Mobility 1 Bed Mobility From 1: Supine Bed Mobility Type 1: To and from Bed Mobility to 1: Rolling right, Rolling left Level of Assistance 1: Maximum Assist Bed Mobility Comments 1: max A to position LEs, force production, cues to reach UE towards bed rail Bed Mobility 2 Bed Mobility From 2: Supine Bed Mobility Type 2: To Bed Mobility to 2: Edge of Bed Level of Assistance 2: Maximum Assist (of 2) Bed Mobility Comments 2: max A Of 2 for log roll, LE maneuvering, and trunk elevation RUE Assessment RUE Assessment RUE Assessment: Within Functional Limits LUE Assessment LUE Assessment LUE Assessment: Within Functional Limits Safe Environment End of Session Safe Environment End of Therapy Session: Patient left in chair, RN notified, Call light within reach Other Comments OT Goals Multi-Disciplinary Problems (from Occupational Therapy) Active Problems Problem: Grooming Start Date: 11/10/23 Goal Start Date Expected End Date End Date STG - Patient will complete grooming 11/10/23 11/17/23 -- Goal Details: Spv in unsupported sitting Problem: Toileting Start Date: 11/10/23 Goal Start Date Expected End Date End Date STG - Patient will complete toileting tasks with 11/10/23 11/17/23 -- Goal Details: Mod A Problem: Transfers Start Date: 11/10/23 Goal Start Date Expected End Date End Date STG - Patient will perform toilet transfer 11/10/23 11/17/23 -- Goal Details: To/from [facility] with mod A Problem: OT Misc Start Date: 11/10/23 Goal Start Date Expected End Date End Date OT LTG - Misc 1 11/10/23 12/01/23 -- Goal Details: Pt will complete ADLs with spv For questions, please review the treatment team and contact the occupational therapist currently assigned to this patient. If an occupational therapist is not assigned to this patient, please call [phone]. 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 * Ata Marquez MD - 11/10/2023 11:19 AM CST Orthopaedic Spine Service Daily Progress Note Admit Date: 11/07/2023 Hospital Day: 3 [place] Dx: cauda equina Relevant PMHx: postop cardiac arrest and b/l PE on therapeutic anticoagulation, prostate CA s/p prostatectomy, GERD, obesity, CKD, UTI, melanoma Procedure(s): 10/23/23: L4-L5 decompression, TLIF, PSF 11/08/23: T5-L5 laminectomies w/hematoma evacuation Interval History: 11/10: POD2. AFVSS. Denies chest pain, SOB, nausea/vomiting. Hgb 8.6 WBC 10.9 Cr 0.99. Drain 1 5/7, Drain 2 [address]C [address] PE with interval decrease in b/l PE emboli burden. Heme c/s rec no AC for 2 weeks and with plans to coordinate controlled AC therapy in 2 weeks. Exam: RLE motor 2/5TA/EHL, no motor IP/Q/H/GSC. LLE wiggles toes o/w no motor. SILT throughout. Plan: TLSO brace when OOB; PT/OT. Continue ancef/vanc while drains are in. Maintain drains to bile bags to gravity. iVac for 7 days. Objective Vitals: 24hr Min/Max: Temp Min: 36.1 ??C (96.9 ??F) Max: 36.8 ??C (98.2 ??F) Pulse Min: 73 Max: 104 BP Min: 112/84 Max: 152/73 Resp Min: 11 Max: 21 SpO2 Min: 91 % Max: 100 % I/O last 2 completed shifts: In: 816.2 [I.V.:253.7; IV Piggyback:562.5] Out: 748 [Urine:657; Drains:91] I/O this shift: In: - Out: 102 [Urine:100; Drains:2] Physical Exam: Gen: no acute distress Neuro: A&Ox3 Dressing: clean/dry/intact Wound Vac(s): Holding suction nicely, no apparent leaks Hemo Vac(s): Bile bags x2 to gravity Motor: Muscle Strength Right Left Shoulder abduction (C5) 5/5 5/5 Elbow flexion (C5/6) 5/5 5/5 Elbow extension (C7) 5/5 5/5 Wrist extension (C6) 5/5 5/5 Wrist flexion (C7) 5/5 5/5 Mangle Press Catcher (C8) 5/5 5/5 Interosseous of hand (T1) 5/5 5/5 Iliopsoas (L2/3) 0/5 0/5 Quadriceps (L3/4) 0/5 0/5 Tibialis anterior (L4/5) 2/5 0/5 Extensor hallicus longus (L5) 2/5 0/5 Gastrocsoleus complex (S1) 2/5 0/5 *Patient able to wiggle digits 2-5 on the LLE Sensation Left upper extremity: SILT C5 to T1 dermatomes. Right upper extremity: SILT C5 to T1 dermatomes. Left lower extremity: SILT L2 to S1 dermatomes. Right lower extremity: SILT L2 to S1 dermatomes. Long-tract signs: Negative Milner's BUE <2 beats clonus BLE Equivocal Babinski BLE Vascular: Bilateral Upper Extremity: 2+ radial pulse, fingers WWP Bilateral Lower Extremity: 2+ DP pulse, toes WWP Lab/Diagnostic Review: Recent Labs Lab Units 11/10/23 0800 11/09/23 2330 11/08/23 1505 11/08/23 1151 11/08/23 0418 11/07/23 2301 SODIUM mmol/L -- 135 < > 138 -- 141 POTASSIUM PLASMA mmol/L -- 4.7 < > 4.4 -- 4.2 CHLORIDE mmol/L -- 104 < > 108 -- 104 CO2 mmol/L -- 23 < > 22 -- 28 ANIONGAP mmol/L -- 8 < > 8 -- 9 GLUCOSE mg/dL -- 138 < > 181 -- 142 POC GLUCOSE MONITOR mg/dL 149 -- < > -- < > -- BUN SERUM mg/dL -- 20 < > 15 -- 14 CREATININE mg/dL -- 0.99 < > 0.82 -- 0.98 CALCIUM mg/dL -- 8.3* < > 8.0* -- 8.6 WBC K/cumm -- 10.9* < > 10.4* -- 12.0* HEMOGLOBIN, POC -- -- -- -- < > -- HEMOGLOBIN g/dL -- 8.6* < > 9.2* -- 9.5* HEMATOCRIT % -- 25.3* < > 27.4* -- 29.0* HEMATOCRIT POC -- -- -- -- < > -- PLATELETS K/cumm -- 225 < > 255 -- 343 APTT sec -- -- -- -- -- 32 INR -- -- -- 1.12 -- 1.11 < > = values in this interval not displayed. Micro: Lab Results Component Value Date MICROBIOLOGY Final Report: No growth 10/14/2023 MICROBIOLOGY Final Report: No growth 10/13/2023 MICROBIOLOGY Final Report: No growth 10/13/2023 MICROBIOLOGY Final Report: No growth 10/12/2023 MICROBIOLOGY Final Report: No growth 10/12/2023 MICROBIOLOGY (.) 10/12/2023 Final Report: Greater than or equal to 100,000 colonies/mL of Escherichia coli Greater than or equal to 100,000 colonies/mL of Escherichia coli #2 For susceptibility results, refer to accession number [id number] on the urine culture from 10/11/23 MICROBIOLOGY (.) 10/11/2023 Final Report: Greater than or equal to 100,000 colonies/mL of Escherichia coli Greater than or equal to 100,000 colonies/mL of Escherichia coli #2 MICROBIOLOGY 03/15/2023 Final Report: Less than 100,000 colonies/mL (clinically insignificant growth based on current clinical standards) MICROBIOLOGY Final Report: No growth 09/24/2019 Plan: 1. Pain control 2. CT/PE reassuring with decreased emboli burden 3. MAPs >80 mmHg x48h 4. Anticoagulation per Heme, plan to hold for 2 weeks 5. Decadron 4 mg q.6 hours x7 days 6. Q.2 hour neuro checks 7. Maintain drains; continue vancomycin and Ancef while drains are in place 8. TLSO brace when out of bed; okay to start PT/OT 9. IVC filter placed Ata Marquez M.D. Department of Orthopaedic Surgery, PGY-3 [facility] [place] Dr. Ata Marquez dictating using Fluency Direct. Dictation variances may occur. Please call with questions during daytime. See below for overnight issues. If you know the resident's name on the appropriate orthopaedic surgery team, please use [email or web address] to page resident directly. If questions arise and the appropriate resident can't be reached or you are calling overnight, please contact [phone] ([facility] 7:30 PM - 6:30 AM - Floor Resident) or [phone] (24 hours/day - Consult Resident) Cosigned by Marcial Vu MD at 11/12/2023 8:38 PM ELEC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 * Alice Dodge MD - 11/10/2023 7:11 AM CST Neurosurgery Consult Progress Note 11/10/2023 Hospital Course/Notable Events 11/08 OR for T5-L5 epidural hematoma evac. Neurosurgery consulted for intraoperative durotomy repair 11/[address] PE with decrease in clot burden. Subjective Nausea . Objective Physical Exam Awake, R, FC Ox3 CNGI BUE 5/5 BLE 0/5 except for RLE 2/5 DF SILT Drains x2 (bile bag) Vitals 24hr min/max vitals: Temp Min: 36.1 ??C (96.9 ??F) Max: 36.8 ??C (98.2 ??F) Pulse Min: 73 Max: 104 Resp Min: 9 Max: 20 SpO2 Min: 91 % Max: 100 % MAP (mmHg) Min: 79 Max: 129 Labs Lab Results Component Value Date SODIUM 135 11/09/2023 SODIUM 133 (L) 11/09/2023 SODIUM 136 11/08/2023 Lab Results Component Value Date WBC 10.9 (H) 11/09/2023 WBC 11.9 (H) 11/09/2023 WBC 14.0 (H) 11/08/2023 HGB 8.6 (L) 11/09/2023 HGB 8.5 (L) 11/09/2023 HGB 11.0 (L) 11/08/2023 LABPLAT 225 11/09/2023 LABPLAT 219 11/09/2023 LABPLAT 292 11/08/2023 Lab Results Component Value Date INR 1.12 11/08/2023 INR 1.11 11/07/2023 INR 1.16 10/26/2023 PT 12.8 11/08/2023 PT 12.6 11/07/2023 PT 13.2 10/26/2023 APTT 32 11/07/2023 APTT 64 (H) 10/26/2023 APTT 74 (H) 10/26/2023 Assessment/Plan Hospital Day: 4 Hira Evans is a 73 y.o. year old male who was seen by the neurosurgery service for intraoperative durotomy repair. This consult has been staffed with Dr. Cuevas. Plan Care per ortho spine Drains x2 bile bags Responsible Team Irene Oropeza MD (du) [phone] Alice Dodge MD (senior) Octavio Matute MD (chief) Please contact the resident in bold with any questions. If it is after 6pm or you are unable to reach the residents listed, please page the Neurosurgery Call Pager at [phone]. Note created by Alice Dodge MD on 11/10/2023 at 7:12 AM. Cosigned by Simeon Cuevas MD at 11/10/2023 11:35 AM ELEC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 * Marcial Vu MD - 11/09/2023 12:45 PM CST I personally saw and examined Mr. Evans at the bedside. He remains in the surgical ICU. He had pain in his back overnight and a lidocaine drip was started. Pain is well controlled currently. He received his IVC filter this morning. On exam, he is resting comfortably in bed. He is alert and oriented x4. Prevena incisional VAC is in place with intact seal. Deep drains x2 are connected to bile bags with serosanguineous output. He has 2/5 strength of right tibialis anterior, EHL, and gastrocsoleus complex and is able to flicker fire his toes on the left, otherwise he is unable to demonstrate any motor function in bilateral lower extremities. He has intact sensation to light touch throughout bilateral lower extremities. Plan: 1. Pain control 2. CT/PE today to evaluate clot burden in the lungs 3. MAPs >80 mmHg x48h 4. Anticoagulation per Heme, plan to hold for 2 weeks 5. Decadron 4 mg q.6 hours x7 days 6. Q.2 hour neuro checks 7. Maintain drains; continue vancomycin and Ancef while drains are in place 8. TLSO brace when out of bed Marcial Vu Jr., MD [employer]oles[employer] Manager Department of Orthopaedic Surgery Division of Spine Surgery [facility], [place] 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 * Irene Oropeza MD - 11/09/2023 10:03 AM CST Neurosurgery Consult Progress Note 11/09/2023 Hospital Course/Notable Events 11/08 OR for T5-L5 epidural hematoma evac. Neurosurgery consulted for intraoperative durotomy repair Subjective Nausea . Objective Physical Exam Awake, R, FC Ox3 CNGI BUE 5/5 BLE 0/5 except for RLE 2/5 DF SILT Drains x2 (bile bag) Vitals 24hr min/max vitals: Temp Min: 36.7 ??C (98.1 ??F) Max: 37.2 ??C (99 ??F) Pulse Min: 83 Max: 121 Resp Min: 9 Max: 26 SpO2 Min: 83 % Max: 100 % MAP (mmHg) Min: 89 Max: 129 Labs Lab Results Component Value Date SODIUM 136 11/08/2023 SODIUM 138 11/08/2023 SODIUM 141 11/07/2023 Lab Results Component Value Date WBC 14.0 (H) 11/08/2023 WBC 10.4 (H) 11/08/2023 WBC 12.0 (H) 11/07/2023 HGB 11.0 (L) 11/08/2023 HGB 9.2 (L) 11/08/2023 HGB 10.6 (L) 11/08/2023 LABPLAT 292 11/08/2023 LABPLAT 255 11/08/2023 LABPLAT 343 11/07/2023 Lab Results Component Value Date INR 1.12 11/08/2023 INR 1.11 11/07/2023 INR 1.16 10/26/2023 PT 12.8 11/08/2023 PT 12.6 11/07/2023 PT 13.2 10/26/2023 APTT 32 11/07/2023 APTT 64 (H) 10/26/2023 APTT 74 (H) 10/26/2023 Assessment/Plan Hospital Day: 3 Hira Evans is a 73 y.o. year old male who was seen by the neurosurgery service for intraoperative durotomy repair. This consult has been staffed with Dr. Cuevas. Plan Care per ortho spine Drains x2 bile bags (0/30, 40/105) - per ortho spine Responsible Team Irene Oropeza MD (du) [phone] Alice Dodge MD (senior) Octavio Matute MD (chief) Please contact the resident in bold with any questions. If it is after 6pm or you are unable to reach the residents listed, please page the Neurosurgery Call Pager at [phone]. Note created by Irene Oropeza MD on 11/09/2023 at 10:03 AM. Cosigned by Simeon Cuevas MD at 11/10/2023 11:35 AM ELEC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 * Vicki Rehman, WOMEN'S GARMENT FITTER - 11/09/2023 9:22 AM CSTAssociated Order(s): Critical Care Post-Procedure Diagnose(s): Paralysis of both lower limbs (CMS/HCC) (HCC) ICU Progress Note Team: Blue AM Subjective Hira Evans is a 73 y.o. male presented to the ICU with chief complaint of abdominal pain,BLE numbness/paralysis. Interval History: - s/p IVC filter placement by IR - Lidocaine gtt held for paresthesia around mouth, lidocaine level 3.4 -> restart at 1 - CT PE with interval decrease in burden of bilateral pulmonary emboli with a few residual nonocclusive, resolving acute/subacute pulmonary emboli in the right lower lobe segmental arteries and smallpulmonary infarcts in the anterior right upper and middle lobes. No new pulmonary emboli or CT evidence of right heart strain - CLD - Neurological checks q2 hours - Hematology recommends holding DVT ppx and anticoagulation for 2 weeks post-op, do not start ASA. After 2 weeks if remains inpatient consider Heparin gtt without boluses. If dicharged can consider Lovenox 30 mg subq BID. - TTOU HPI: 73 y.o. male with PMH: prostate CA, HTN, lumbar radiculopathy w/ recent hospitalization (10/12-10/30) for UTI, L ureteral stone and (12/19) L4-5 PSF post-op c/b seizure/code blue in PACU (ROSC after 2min CPR and Epi x1), CT head with small bilat SDH and CT PE bilat PEs, d/c home on therapeutic Lovenox. 11/07 Presented to OSH with sudden onset abdominal pain, BLE numbness/tingling, inability to ambulate. Previously had been ambulating with walker since 10/30/23 discharge. Transferred to [facility], MRI with longitudinally extending dorsal epidural and subdural collection T5-T6 through L5-S1 causing severe canal stenosis and cauda equina compression. 11/08 Patient taken emergently to OR with Ortho-Spine. In OR, 3.5 L crystalloid, 3 units PRBC, 1 unit FFP, 4 mg Dexamethasone. EBL 1250 cc. Arrived to 4400 extubated on 4 L NC, hemodynamically unsupported. Abbreviated Hospital Course: 11/08/23: s/p Laminectomy and thoracic decompression T5-L5, dural repair (Ortho spine) 11/09/23: s/p IVC filter in IR Past Medical History: Diagnosis Date Allergic rhinitis Arthritis OA Cancer (CMS/HCC) (HCC) prostate and melonomia Gastric reflux GERD (gastroesophageal reflux disease) History of melanoma Hypertension Kidney stone Personal history of prostate cancer Pneumonia Seasonal allergies Past Surgical History: Procedure Laterality Date FL UPPER GI AIR CONTRAST W KUB Left 09/21/2023 JOINT REPLACEMENT Right 2013 right knee replacement MELANOMA RESECTION Right 2005 right flank PERCUTANEOUS NEPHROSTOMY PCN LEFT Left 10/14/2023 PROSTATECTOMY 2009 REPLACEMENT TOTAL KNEE Left 10/17/2021 REVISION TOTAL KNEE ARTHROPLASTY Right 09/30/2019 VASECTOMY 30 years ago Alcohol Use: Not At Risk (10/23/2023) AUDIT-C Frequency of Alcohol Consumption: 4 or more times a week Average Number of Drinks: 1 or 2 Frequency of Binge Drinking: Never Vitals: Most Recent : Vitals: 11/09/23 0900 BP: (!) 139/122 Pulse: 94 Resp: 16 Temp: 36.7 ??C (98.1 ??F) SpO2: 93% Hemodynamics: MAP (mmHg): [89-129] 129 Pulmonary Support: O2 Therapy: None (Room air) O2 Del Method: Nasal cannula O2 Flow Rate (L/min): 2 L/min Intake/Output: Intake/Output Summary (Last 24 hours) at 11/09/2023 0923 Last data filed at 11/09/2023 0917 Gross per 24 hour Intake 3435.9 ml Output 907 ml Net 2528.9 ml Objective Physical exam: General: No Acute Distress Neuro: A&Ox4, follows commands BUE, BUE 5/5, LLE 2nd toe movement, RLE movement of all toes andfoot, sensation intact x4 Cardiac: S1 and S2, Regular Rate and Rhythm, no M/G/R Pulmonary: Lungs clear/diminished to auscultation, respirations even/unlabored on NC Abdominal: Soft/Nontender/Nondistended, normoactive bowel sounds Extremities: No edema, Pulses Present and Palpable Drains: Harris, right back surgical drains x2 to gravity with small amount serous output, wound vac in place Wounds: See RN flowsheet Lab/Radiology/Diagnostic Review: Laboratory review: Lab results in the last 24 hours: Recent Results (from the past 24 hour(s)) POCT glucose Collection Time: 11/08/23 11:41 AM Result Value Ref Range Glucose, POC 173 70 - 199 mg/dL Basic metabolic panel Collection Time: 11/08/23 11:51 AM Result Value Ref Range Sodium 138 135 - 145 mmol/L Potassium, pl 4.4 3.3 - 4.9 mmol/L Chloride 108 97 - 110 mmol/L CO2 22 22 - 32 mmol/L Anion gap 8 2 - 15 mmol/L BUN 15 6 - 25 mg/dL Creatinine 0.82 0.80 - 1.30 mg/dL Glucose 181 70 - 199 mg/dL Calcium 8.0 (L) 8.5 - 10.3 mg/dL Calcium, ionized Collection Time: 11/08/23 11:51 AM Result Value Ref Range Calcium, Ionized 4.58 4.50 - 5.10 mg/dL Magnesium Collection Time: 11/08/23 11:51 AM Result Value Ref Range Magnesium 1.8 1.4 - 2.5 mg/dL Phosphorus Collection Time: 11/08/23 11:51 AM Result Value Ref Range Phosphorus, pl 4.1 2.3 - 4.5 mg/dL Protime-INR Collection Time: 11/08/23 11:51 AM Result Value Ref Range PT 12.8 10.3 - 13.7 sec INR 1.12 0.90 - 1.20 CBC without differential Collection Time: 11/08/23 11:51 AM Result Value Ref Range WBC 10.4 (H) 3.8 - 9.9 K/cumm Hgb 9.2 (L) 13.0 - 17.5 g/dL Hct 27.4 (L) 38.9 - 50.3 % Plt 255 150 - 400 K/cumm MPV 11.0 9.1 - 12.3 fL RBC 3.03 (L) 4.30 - 5.80 M/cumm MCV 90.4 81.3 - 96.4 fL MCH 30.4 27.1 - 33.3 pg MCHC 33.6 32.3 - 35.7 g/dL RDW CV 14.4 11.1 - 14.9 % RDW SD 47.6 35.7 - 48.1 fL NRBC abs 0.00 0.00 - 0.01 K/cumm eGFR Collection Time: 11/08/23 11:51 AM Result Value Ref Range eGFR >90 >=60 mL/min/1.73 m2 POCT glucose Collection Time: 11/08/23 3:05 PM Result Value Ref Range Glucose, POC 171 70 - 199 mg/dL POCT glucose Collection Time: 11/08/23 7:10 PM Result Value Ref Range Glucose, POC 169 70 - 199 mg/dL Basic metabolic panel Collection Time: 11/08/23 9:01 PM Result Value Ref Range Sodium 136 135 - 145 mmol/L Potassium, pl 4.4 3.3 - 4.9 mmol/L Chloride 102 97 - 110 mmol/L CO2 22 22 - 32 mmol/L Anion gap 12 2 - 15 mmol/L BUN 18 6 - 25 mg/dL Creatinine 0.83 0.80 - 1.30 mg/dL Glucose 192 70 - 199 mg/dL Calcium 8.5 8.5 - 10.3 mg/dL CBC without differential Collection Time: 11/08/23 9:01 PM Result Value Ref Range WBC 14.0 (H) 3.8 - 9.9 K/cumm Hgb 11.0 (L) 13.0 - 17.5 g/dL Hct 33.3 (L) 38.9 - 50.3 % Plt 292 150 - 400 K/cumm MPV 11.1 9.1 - 12.3 fL RBC 3.62 (L) 4.30 - 5.80 M/cumm MCV 92.0 81.3 - 96.4 fL MCH 30.4 27.1 - 33.3 pg MCHC 33.0 32.3 - 35.7 g/dL RDW CV 14.4 11.1 - 14.9 % RDW SD 49.0 (H) 35.7 - 48.1 fL NRBC abs 0.00 0.00 - 0.01 K/cumm Magnesium Collection Time: 11/08/23 9:01 PM Result Value Ref Range Magnesium 2.3 1.4 - 2.5 mg/dL Phosphorus Collection Time: 11/08/23 9:01 PM Result Value Ref Range Phosphorus, pl 3.4 2.3 - 4.5 mg/dL eGFR Collection Time: 11/08/23 9:01 PM Result Value Ref Range eGFR >90 >=60 mL/min/1.73 m2 POCT glucose Collection Time: 11/08/23 11:49 PM Result Value Ref Range Glucose, POC 150 70 - 199 mg/dL POCT glucose Collection Time: 11/09/23 3:24 AM Result Value Ref Range Glucose, POC 160 70 - 199 mg/dL POCT glucose Collection Time: 11/09/23 7:07 AM Result Value Ref Range Glucose, POC 137 70 - 199 mg/dL Recent Results (from the past 48 hour(s)) CBC without differential Collection Time: 11/07/23 11:01 PM Result Value Ref Range WBC 12.0 (H) 3.8 - 9.9 K/cumm Hgb 9.5 (L) 13.0 - 17.5 g/dL Hct 29.0 (L) 38.9 - 50.3 % Plt 343 150 - 400 K/cumm MPV 10.9 9.1 - 12.3 fL RBC 3.08 (L) 4.30 - 5.80 M/cumm MCV 94.2 81.3 - 96.4 fL MCH 30.8 27.1 - 33.3 pg MCHC 32.8 32.3 - 35.7 g/dL RDW CV 13.7 11.1 - 14.9 % RDW SD 46.8 35.7 - 48.1 fL NRBC abs 0.00 0.00 - 0.01 K/cumm Basic metabolic panel Collection Time: 11/07/23 11:01 PM Result Value Ref Range Sodium 141 135 - 145 mmol/L Potassium, pl 4.2 3.3 - 4.9 mmol/L Chloride 104 97 - 110 mmol/L CO2 28 22 - 32 mmol/L Anion gap 9 2 - 15 mmol/L BUN 14 6 - 25 mg/dL Creatinine 0.98 0.80 - 1.30 mg/dL Glucose 142 70 - 199 mg/dL Calcium 8.6 8.5 - 10.3 mg/dL Protime-INR Collection Time: 11/07/23 11:01 PM Result Value Ref Range PT 12.6 10.3 - 13.7 sec INR 1.11 0.90 - 1.20 aPTT Collection Time: 11/07/23 11:01 PM Result Value Ref Range aPTT 32 28 - 38 sec Type and screen Collection Time: 11/07/23 11:01 PM Result Value Ref Range Jigna, indirect Negative ABO Rh O Positive eGFR Collection Time: 11/07/23 11:01 PM Result Value Ref Range eGFR 82 >=60 mL/min/1.73 m2 Prepare RBC: 4 Units Collection Time: 11/08/23 2:28 AM Result Value Ref Range Product code U9503A81 Unit Number [id number] Product Blood Type OPOS Dispense Status ISSUED Product code C7807E22 Unit Number [id number] Product Blood Type OPOS Dispense Status RETURNED Product code B2264A73 Unit Number [id number] Product Blood Type OPOS Dispense Status ISSUED Product code S8525I68 Unit Number [id number] Product Blood Type OPOS Dispense Status ISSUED Prepare plasma: 4 Units Collection Time: 11/08/23 2:28 AM Result Value Ref Range Product code I9113S38 Unit Number [id number] Product Blood Type OPOS Dispense Status RETURNED Product code J5345J03 Unit Number [id number] Product Blood Type OPOS Dispense Status RETURNED Product code W6207A31 Unit Number [id number] Product Blood Type OPOS Dispense Status RETURNED Product code C2938C64 Unit Number [id number] Product Blood Type OPOS Dispense Status ISSUED POC Blood Gas and Chemistries, Arterial - Collection Time: 11/08/23 4:18 AM Result Value Ref Range pH, Art POC 7.45 7.35 - 7.45 pCO2, Art POC 35 35 - 45 mmHg pO2, Art POC 322 (H) 83 - 108 mmHg Na, POC 136 135 - 145 mmol/L K POC 3.5 3.3 - 4.9 mmol/L Cl, POC 108 97 - 110 mmol/L Ionized Ca, POC 4.62 4.50 - 5.10 mg/dL Glucose, POC 123 70 - 199 mg/dL Lactate, POC 0.7 0.7 - 2.2 mmol/L SO2 (mindy) arterial 99 (H) 90 - 95 % Base excess, POC 0.4 mmol/L HCO3, Art POC 24 20 - 30 mmol/L Hct, POC 26.0 (L) 41.4 - 51.6 % O2 Sat, Art POC (Calc) 100 % Total Hb, POC 8.6 (L) 13.8 - 17.2 g/dL POC Blood Gas and Chemistries, Arterial - Collection Time: 11/08/23 6:00 AM Result Value Ref Range pH, Art POC 7.39 7.35 - 7.45 pCO2, Art POC 40 35 - 45 mmHg pO2, Art POC 158 (H) 83 - 108 mmHg Na, POC 136 135 - 145 mmol/L K POC 3.7 3.3 - 4.9 mmol/L Cl, POC 109 97 - 110 mmol/L Ionized Ca, POC 4.53 4.50 - 5.10 mg/dL Glucose, POC 131 70 - 199 mg/dL Lactate, POC 0.7 0.7 - 2.2 mmol/L SO2 (mindy) arterial 100 (H) 90 - 95 % Base excess, POC -0.7 mmol/L HCO3, Art POC 24 20 - 30 mmol/L Hct, POC 29.0 (L) 41.4 - 51.6 % O2 Sat, Art POC (Calc) 99 % Total Hb, POC 9.6 (L) 13.8 - 17.2 g/dL POC Blood Gas and Chemistries, Arterial - Collection Time: 11/08/23 7:05 AM Result Value Ref Range pH, Art POC 7.42 7.35 - 7.45 pCO2, Art POC 33 (L) 35 - 45 mmHg pO2, Art POC 156 (H) 83 - 108 mmHg Na, POC 135 135 - 145 mmol/L K POC 3.8 3.3 - 4.9 mmol/L Cl, POC 109 97 - 110 mmol/L Ionized Ca, POC 4.66 4.50 - 5.10 mg/dL Glucose, POC 146 70 - 199 mg/dL Lactate, POC 0.6 (L) 0.7 - 2.2 mmol/L SO2 (mindy) arterial 99 (H) 90 - 95 % Base excess, POC -2.6 mmol/L HCO3, Art POC 21 20 - 30 mmol/L Hct, POC 29.0 (L) 41.4 - 51.6 % O2 Sat, Art POC (Calc) 99 % Total Hb, POC 9.8 (L) 13.8 - 17.2 g/dL POC Blood Gas and Chemistries, Arterial - Collection Time: 11/08/23 8:22 AM Result Value Ref Range pH, Art POC 7.38 7.35 - 7.45 pCO2, Art POC 38 35 - 45 mmHg pO2, Art POC 153 (H) 83 - 108 mmHg Na, POC 135 135 - 145 mmol/L K POC 4.5 3.3 - 4.9 mmol/L Cl, POC 109 97 - 110 mmol/L Ionized Ca, POC 5.14 (H) 4.50 - 5.10 mg/dL Glucose, POC 187 70 - 199 mg/dL Lactate, POC 0.8 0.7 - 2.2 mmol/L SO2 (mindy) arterial 99 (H) 90 - 95 % Base excess, POC -2.3 mmol/L HCO3, Art POC 22 20 - 30 mmol/L Hct, POC 32.0 (L) 41.4 - 51.6 % O2 Sat, Art POC (Calc) 99 % Total Hb, POC 10.6 (L) 13.8 - 17.2 g/dL POCT glucose Collection Time: 11/08/23 11:41 AM Result Value Ref Range Glucose, POC 173 70 - 199 mg/dL Basic metabolic panel Collection Time: 11/08/23 11:51 AM Result Value Ref Range Sodium 138 135 - 145 mmol/L Potassium, pl 4.4 3.3 - 4.9 mmol/L Chloride 108 97 - 110 mmol/L CO2 22 22 - 32 mmol/L Anion gap 8 2 - 15 mmol/L BUN 15 6 - 25 mg/dL Creatinine 0.82 0.80 - 1.30 mg/dL Glucose 181 70 - 199 mg/dL Calcium 8.0 (L) 8.5 - 10.3 mg/dL Calcium, ionized Collection Time: 11/08/23 11:51 AM Result Value Ref Range Calcium, Ionized 4.58 4.50 - 5.10 mg/dL Magnesium Collection Time: 11/08/23 11:51 AM Result Value Ref Range Magnesium 1.8 1.4 - 2.5 mg/dL Phosphorus Collection Time: 11/08/23 11:51 AM Result Value Ref Range Phosphorus, pl 4.1 2.3 - 4.5 mg/dL Protime-INR Collection Time: 11/08/23 11:51 AM Result Value Ref Range PT 12.8 10.3 - 13.7 sec INR 1.12 0.90 - 1.20 CBC without differential Collection Time: 11/08/23 11:51 AM Result Value Ref Range WBC 10.4 (H) 3.8 - 9.9 K/cumm Hgb 9.2 (L) 13.0 - 17.5 g/dL Hct 27.4 (L) 38.9 - 50.3 % Plt 255 150 - 400 K/cumm MPV 11.0 9.1 - 12.3 fL RBC 3.03 (L) 4.30 - 5.80 M/cumm MCV 90.4 81.3 - 96.4 fL MCH 30.4 27.1 - 33.3 pg MCHC 33.6 32.3 - 35.7 g/dL RDW CV 14.4 11.1 - 14.9 % RDW SD 47.6 35.7 - 48.1 fL NRBC abs 0.00 0.00 - 0.01 K/cumm eGFR Collection Time: 11/08/23 11:51 AM Result Value Ref Range eGFR >90 >=60 mL/min/1.73 m2 POCT glucose Collection Time: 11/08/23 3:05 PM Result Value Ref Range Glucose, POC 171 70 - 199 mg/dL POCT glucose Collection Time: 11/08/23 7:10 PM Result Value Ref Range Glucose, POC 169 70 - 199 mg/dL Basic metabolic panel Collection Time: 11/08/23 9:01 PM Result Value Ref Range Sodium 136 135 - 145 mmol/L Potassium, pl 4.4 3.3 - 4.9 mmol/L Chloride 102 97 - 110 mmol/L CO2 22 22 - 32 mmol/L Anion gap 12 2 - 15 mmol/L BUN 18 6 - 25 mg/dL Creatinine 0.83 0.80 - 1.30 mg/dL Glucose 192 70 - 199 mg/dL Calcium 8.5 8.5 - 10.3 mg/dL CBC without differential Collection Time: 11/08/23 9:01 PM Result Value Ref Range WBC 14.0 (H) 3.8 - 9.9 K/cumm Hgb 11.0 (L) 13.0 - 17.5 g/dL Hct 33.3 (L) 38.9 - 50.3 % Plt 292 150 - 400 K/cumm MPV 11.1 9.1 - 12.3 fL RBC 3.62 (L) 4.30 - 5.80 M/cumm MCV 92.0 81.3 - 96.4 fL MCH 30.4 27.1 - 33.3 pg MCHC 33.0 32.3 - 35.7 g/dL RDW CV 14.4 11.1 - 14.9 % RDW SD 49.0 (H) 35.7 - 48.1 fL NRBC abs 0.00 0.00 - 0.01 K/cumm Magnesium Collection Time: 11/08/23 9:01 PM Result Value Ref Range Magnesium 2.3 1.4 - 2.5 mg/dL Phosphorus Collection Time: 11/08/23 9:01 PM Result Value Ref Range Phosphorus, pl 3.4 2.3 - 4.5 mg/dL eGFR Collection Time: 11/08/23 9:01 PM Result Value Ref Range eGFR >90 >=60 mL/min/1.73 m2 POCT glucose Collection Time: 11/08/23 11:49 PM Result Value Ref Range Glucose, POC 150 70 - 199 mg/dL POCT glucose Collection Time: 11/09/23 3:24 AM Result Value Ref Range Glucose, POC 160 70 - 199 mg/dL POCT glucose Collection Time: 11/09/23 7:07 AM Result Value Ref Range Glucose, POC 137 70 - 199 mg/dL MRI Spine Total Complete WO Contrast Result Date: 11/08/2023 1. Postsurgical changes of L4-L5 discectomy, interbody and posterior fusion. 2. Longitudinally extending dorsal epidural and subdural collection from T5-T6 through L5-S1. This is favored to representhematoma and less likely an abscess. 3. Otherwise, degenerative spine disease as described above. The critical results were discussed with Dr. Dr. Arti MD at 11/07/2023 1:[address] Hastings. Dictated by: Satinder Hastings MD XR Spine Lumbar 2 or 3 Views Result Date: 11/08/2023 FINDINGS/IMPRESSION: Thoracic spine: 3 views of the thoracic spine are obtained for interpretation.Evaluation of the upper thoracic spine is limited due to overlying soft tissues. Vertebral body heights are maintained. Diffuse idiopathic skeletal hyperostosis. Partially imaged left ureteral stent catheter. Lumbar spine: 3 views of the lumbar spine are obtained for interpretation. Posterior spinal instrumentation and fixation of L4-L5 with interbody fusion. Degenerative disc disease of the spine. The vertebral body heights are maintained. Partially imaged left ureteral stent. Dictated by: Geovanna Cárdenas MD, MPH The radiology attending physician has personally reviewed this study, and had reviewed and/or edited this written report and agrees with it. Electronically signed by: Kendrick House M.D. XR Spine Thoracic 3 Vw Result Date: 11/08/2023 FINDINGS/IMPRESSION: Thoracic spine: 3 views of the thoracic spine are obtained for interpretation.Evaluation of the upper thoracic spine is limited due to overlying soft tissues. Vertebral body heights are maintained. Diffuse idiopathic skeletal hyperostosis. Partially imaged left ureteral stent catheter. Lumbar spine: 3 views of the lumbar spine are obtained for interpretation. Posterior spinal instrumentation and fixation of L4-L5 with interbody fusion. Degenerative disc disease of the spine. The vertebral body heights are maintained. Partially imaged left ureteral stent. Dictated by: Geovanna Cárdenas MD, MPH The radiology attending physician has personally reviewed this study, and had reviewed and/or edited this written report and agrees with it. Electronically signed by: Kendrick House M.D. CT Cervical Thoracic Lumbar Spine WO Contrast Result Date: 11/08/2023 1. Degenerative changes of the cervical and thoracic spine with no acute traumatic injuries identified. 2. Postsurgical changes of L4-L5 discectomy, interbody and posterior fusion with bone grafting.Gas in the soft tissues with adjacent confluent area of soft tissue attenuation can be seen in the setting of epidural abscess. Recommend correlation with same day same-day MR report. Dictated by: Hernán Cárdenas M.D. Assessment /Plan Principal Problem: Paralysis of both lower limbs (CMS/HCC) ([facility]) Plan of Care: NEURO: #Acute on chronic pain - Holding home Ketorolac 10 mg q6hr PRN - Continue home Gabapentin 300 mg TID - Scheduled Acetaminophen 1,000 mg q6hr - Continue home Cyclobenzaprine 5 mg TID PRN - Lidocaine gtt 1.5 mg/kg/hr --> held d/t paresthesia around mouth, will f/u with lidocaine level 3.4 --> restart 1 mg/kg/hr - PRN Oxycodone 10 mg q4hr, PRN Hydromorphone 0.5 q1hr - Pain goal <4/10, patient appears comfortable in hospital bed, will frequently reassess #Cauda equina, POA #Epidural hematoma T5-L5, POA, likely 2/2 anticoagulation - 10/23/23 L4-L5 PSF and decompression c/b seizure/code in PACU. Found to have small bilateral SDH,bilateral PE. Discharged 10/30/23 on therapeutic Lovenox. - 11/07/23 Patient presented to OSH with sudden onset BLE numbness/paralysis - 11/08/23 MRI spine with longitudinally extending dorsal epidural and subdural collection T5-T6 through L5-S1 causing severe canal stenosis and cauda equina compression. - 11/08/23 Laminectomy and thoracic decompression T5-L5, dural repair - Holding anticoagulation x2 weeks (per Heme), hold DVT ppx, MAP >80 x48 hours, TLSO brace when OOB, Dexamethasone 4 mg q6hr x7 days (end 11/15), q1hr Neuro checks, Vancomycin and Cefazolin while drains in place, per ortho spine - Drains x2 (deep) to gravity, continue to monitor output - Wound vac in place, continue to monitor output, plan to take down 11/15 - NSGY consulted d/t intra-op dural repair, no recommendations at this time - Ortho-Spine primary #Bilateral subdural hematomas, subacute - 10/23/23 CT head with bilateral subdural hematomas along the cerebral convexities, likely subacute. 10/28/23 CT head with no acute changes - Continue home Levetiracetam 1,000 mg po BID Overall CAM-ICU: Negative (11/09/23 0700) CV: #HTN, chronic - holding home Diltiazem XR 240 mg, Irbesartan 300 mg - PRN Hydralazine 10 mg q4hr for SBP >180 - MAP goal >80 x48 hr, per ortho spine - TTE (10/24/23): Mild-moderate RV cavity enlargement with Terrell sign. Overall, normal RV function. LV cavity size normal with normal systolic function. [id number]%. Grade I diastolic function with normal mean LA pressure. PULM: # Acute respiratory insufficiency- Resolved - Currently on RA - Pulm hygiene, SpO2 goal >92%, IS, PT/OT #Bilateral pulmonary embolism, subacute, POA - 10/23/23 CT PE with acute pulmonary emboli involving the distal right and left main pulmonary arteries extending into all bilateral lobar and multiple bilateral segmental pulmonary arteries. - 10/30/23 discharged home on therapeutic Lovenox 80 mg subq q12hr, last dose 11/07 - 11/08/23 LED with no evidence of acute deep vein thrombosis - 11/28 s/p IVC filter placement in IR, per ortho spine - Hematology recommends holding DVT ppx and anticoagulation for 2 weeks post-op, do not start ASA. After 2 weeks if remains inpatient consider Heparin gtt without boluses. If dicharged can consider Lovenox 30 mg subq BID. - CT PE (11/09): Interval decrease in burden of bilateral pulmonary emboli with a few residual nonocclusive, resolving acute/subacute pulmonary emboli in the right lower lobe segmental arteries and small pulmonary infarcts in the anterior right upper and middle lobes. No new pulmonary emboli or CT evidence of right heart strain - LED (11/08): Negative for acute DVTs GI: - Diet: Clear liquid diet - Bowel regimen: Colace, senna BID #GERD, chronic - Holding home Omeprazole - Pantoprazole 40 mg po daily # Nausea/vomiting - Zofran & Compazine PRN #Vitamin D deficiency, chronic - Continue home cholecalciferol ENDO: #DM2, chronic # Hyperglycemia, likely 2/2 steroids - Holding home Mounjaro - SSI RENAL: - BUN/Cr: 18/0.83 - D/c Harris, strict I/O - Renal dose meds, avoid nephrotoxic agents, f/u BMP #h/o Ureteral stone - 10/14/23 Perc nephrostomy (IR) - 10/18/23 Lithotripsy, removal of stones x2, removal of nephrostomy tube, left ureteral stent placed - Strict I&O #h/o Prostate cancer s/p prostatectomy (2010), POA - Continue home Tamsulosin 0.8 mg HEME: # ABLA - H&H: .3 - PLT: 292 - No s/s of bleeding, will continue to monitor closely, f/u CBC - DVT ppx: SCDs, holding chemical ppx ID: # Leukocytosis, likely r/t recent surgical procedure - WBC: 14 - Afebrile - Continue antibiotics while drains in place #h/o HSV, chronic - Continue home Acyclovir 400 mg PO BID Cefazolin (11/08/22- ) 2 gram q8hr Vancomycin (11/08/22- ) 1250 mg q12hr --> F/u Vanc trough 11/10/23 at 0230 - Cultures: 10/24 HIV: Nonreactive Intensive Care Unit Standards of Care: Restraints: None DVT prophylaxis: SCDs Vascular access: PIVs Goals of care: Full code Blue AM3 Assessment and plan has been reviewed with attending, Dr. Brown. Vicki Rehman NP Critical Care Performed by: Vicki Rehman NP Authorized by: Vicki Rehman NP CRITICAL CARE: Team: SICU BLUE Shift: AM Level of Billing: Subsequent Hospital Visit Level 3 My time spent with this patient was 70 minutes: Critical Provider Statement: I have seen and examined the patient on this day of service. I have reviewed and confirmed the history, physical exam, laboratory, and radiographic data as documented in the ICU note. I have reviewed and discussed my treatment plan with the patient's team and other medical/leadership development consultant staff. This time was in addition to and separate from care provided by other practitioners on this day of service. I spent time reviewing and interpreting data from bedside monitors, laboratory results, and imaging, I spent time discussing the management of this critically ill patient with consultants and the medical staff and I spent time documenting in the medical record Cosigned by Silver Brown MD at 11/09/2023 4:24 PM ELEC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 * Nasir Manzanares MD - 11/09/2023 8:15 AM CST Orthopaedic Spine Service Daily Progress Note Admit Date: 11/07/2023 Hospital Day: 2 Cl[place]isy Dx: cauda equina Relevant PMHx: postop cardiac arrest and b/l PE on therapeutic anticoagulation, prostate CA s/p prostatectomy, GERD, obesity, CKD, UTI, melanoma Procedure(s): 10/23/23: L4-L5 decompression, TLIF, PSF 11/08/23: T5-L5 laminectomies w/hematoma evacuation Interval History: 11/09: POD1. AFVSS. Hgb 11. WBC 14. Cr 0.83. Drain 1 30/30, Drain 2 40/105. Heme c/s rec no AC for 2 weeks and with plans to coordinate controlled AC therapy in 2 weeks. BLE duplex without evidence of DVT in BLE. Exam: RLE motor / TA/EHL, no motor IP/Q/H/GSC. LLE wiggles toes o/w no motor. SILT throughout. Plan: IVC filter with IR today. TLSO brace when OOB. Continue ancef/vanc while drains are in. Maintain drains to bile bags to gravity. iVac for 7 days Objective Vitals: 24hr Min/Max: Temp Min: 36.7 ??C (98.1 ??F) Max: 37.2 ??C (99 ??F) Pulse Min: 80 Max: 121 BP Min: 114/87 Max: 153/88 Resp Min: 9 Max: 26 SpO2 Min: 83 % Max: 100 % I/O last 2 completed shifts: In: 3643.1 [I.V.:2170.6; Blood:400; IV Piggyback:1072.5] Out: 1425 [Urine:840; Drains:135; Blood:450] I/O this shift: In: 147 [I.V.:127; IV Piggyback:20] Out: 132 [Urine:132] Physical Exam: Gen: no acute distress Neuro: A&Ox3 Dressing: clean/dry/intact Wound Vac(s): Holding suction nicely, no apparent leaks Hemo Vac(s): Bile bags x2 to gravity Motor: Muscle Strength Right Left Shoulder abduction (C5) 5/5 5/5 Elbow flexion (C5/6) 5/5 5/5 Elbow extension (C7) 5/5 5/5 Wrist extension (C6) 5/5 5/5 Wrist flexion (C7) 5/5 5/5 Mangle Press Catcher (C8) 5/5 5/5 Interosseous of hand (T1) 5/5 5/5 Iliopsoas (L2/3) 0/5 0/5 Quadriceps (L3/4) 0/5 0/5 Tibialis anterior (L4/5) 2/5 0/5 Extensor hallicus longus (L5) 2/5 0/5 Gastrocsoleus complex (S1) 1/5 0/5 *Patient able to wiggle digits 2-5 on the LLE Sensation Left upper extremity: SILT C5 to T1 dermatomes. Right upper extremity: SILT C5 to T1 dermatomes. Left lower extremity: SILT L2 to S1 dermatomes. Right lower extremity: SILT L2 to S1 dermatomes. Long-tract signs: Negative Milner's BUE <2 beats clonus BLE Equivocal Babinski BLE Vascular: Bilateral Upper Extremity: 2+ radial pulse, fingers WWP Bilateral Lower Extremity: 2+ DP pulse, toes WWP Lab/Diagnostic Review: Recent Labs Lab Units 11/09/23 1104 11/08/23 2349 11/08/23 2101 11/08/23 1505 11/08/23 1151 11/08/23 0418 11/07/23 2301 SODIUM mmol/L -- -- 136 -- 138 -- 141 POTASSIUM PLASMA mmol/L -- -- 4.4 -- 4.4 -- 4.2 CHLORIDE mmol/L -- -- 102 -- 108 -- 104 CO2 mmol/L -- -- 22 -- 22 -- 28 ANIONGAP mmol/L -- -- 12 -- 8 -- 9 GLUCOSE mg/dL -- -- 192 -- 181 -- 142 POC GLUCOSE MONITOR mg/dL 147 < > -- < > -- < > -- BUN SERUM mg/dL -- -- 18 -- 15 -- 14 CREATININE mg/dL -- -- 0.83 -- 0.82 -- 0.98 CALCIUM mg/dL -- -- 8.5 -- 8.0* -- 8.6 WBC K/cumm -- -- 14.0* -- 10.4* -- 12.0* HEMOGLOBIN, POC -- -- -- -- -- < > -- HEMOGLOBIN g/dL -- -- 11.0* -- 9.2* -- 9.5* HEMATOCRIT % -- -- 33.3* -- 27.4* -- 29.0* HEMATOCRIT POC -- -- -- -- -- < > -- PLATELETS K/cumm -- -- 292 -- 255 -- 343 APTT sec -- -- -- -- -- -- 32 INR -- -- -- -- 1.12 -- 1.11 < > = values in this interval not displayed. Micro: Lab Results Component Value Date MICROBIOLOGY Final Report: No growth 10/14/2023 MICROBIOLOGY Final Report: No growth 10/13/2023 MICROBIOLOGY Final Report: No growth 10/13/2023 MICROBIOLOGY Final Report: No growth 10/12/2023 MICROBIOLOGY Final Report: No growth 10/12/2023 MICROBIOLOGY (.) 10/12/2023 Final Report: Greater than or equal to 100,000 colonies/mL of Escherichia coli Greater than or equal to 100,000 colonies/mL of Escherichia coli #2 For susceptibility results, refer to accession number [id number] on the urine culture from 10/11/23 MICROBIOLOGY (.) 10/11/2023 Final Report: Greater than or equal to 100,000 colonies/mL of Escherichia coli Greater than or equal to 100,000 colonies/mL of Escherichia coli #2 MICROBIOLOGY 03/15/2023 Final Report: Less than 100,000 colonies/mL (clinically insignificant growth based on current clinical standards) MICROBIOLOGY Final Report: No growth 09/24/2019 Plan: 1. Pain control 2. CT/PE today to evaluate clot burden in the lungs 3. MAPs >80 mmHg x48h 4. Anticoagulation per Heme, plan to hold for 2 weeks 5. Decadron 4 mg q.6 hours x7 days 6. Q.2 hour neuro checks 7. Maintain drains; continue vancomycin and Ancef while drains are in place 8. TLSO brace when out of bed Nasir Manzanares MD Orthopaedic Surgery PGY2 Please call with questions during daytime. See below for overnight issues. If you know the resident's name on the appropriate orthopaedic surgery team, please use [email or web address] to page resident directly. If questions arise and the appropriate resident can't be reached or you are calling overnight, please contact [phone] ([place]- 7:30 PM - 6:30 AM - Floor Resident) or [phone] (24 hours/day - Consult Resident) Cosigned by Marcial Vu MD at 11/12/2023 8:37 PM ELEC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 Associated attestation - Marcial Vu Jr., MD - 11/12/2023 8:37 PM ELEC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 Images from the original note were not included. I personally saw and examined Mr. Evans at the bedside. He remains in the surgical ICU. He had pain in his back overnight and a lidocaine drip was started. Pain is well controlled currently. He received his IVC filter this morning. On exam, he is resting comfortably in bed. He is alert and oriented x4. Prevena incisional VAC is in place with intact seal. Deep drains x2 are connected to bile bags with serosanguineous output. He has 2/5 strength of right tibialis anterior, EHL, and gastrocsoleus complex and is able to flicker fire his toes on the left, otherwise he is unable to demonstrate any motor function in bilateral lower extremities. He has intact sensation to light touch throughout bilateral lower extremities. Plan: 1. Pain control 2. CT/PE today to evaluate clot burden in the lungs 3. MAPs >80 mmHg x48h 4. Anticoagulation per Heme, plan to hold for 2 weeks 5. Decadron 4 mg q.6 hours x7 days 6. Q.2 hour neuro checks 7. Maintain drains; continue vancomycin and Ancef while drains are in place 8. TLSO brace when out of bed Marcial Vu Jr., MD Wholesale Manager Department of Orthopaedic Surgery Division of Spine Surgery [facility] [place], [place] * Marcial Vu MD - 11/08/2023 6:22 PM CST I saw Mr. Evans at the bedside. He is in the surgical ICU. He is somnolent because he just received pain medications. His pain is not controlled. Bilateral lower extremity venous duplexes were negative for DVT. On exam, he is able to demonstrate dorsiflexion of the right ankle and he fires the right EHL. He is also able to flicker fire his toes on the left. Otherwise, he is not able to demonstrate any motorfunction in bilateral lower extremities. He has intact sensation to light touch throughout bilateral lower extremities. Drains are in place, attached to bile bags. There is serosanguineous output from both. Plan: 1. Pain control; consider adding Toradol 15 mg q.6 hours x3 doses 2. IVC filter placement tomorrow 3. MAPs >80 mmHg x48h 4. Anticoagulation per Heme, plan to hold for 2 weeks 5. Decadron 4 mg q.6 hours x7 days 6. Q.1 hour neuro checks 7. Maintained drains; continue vancomycin and Ancef while drains are in place 8. TLSO brace when out of bed Appreciate excellent care by SICU and consulting teams. Please call with any questions or concerns. Marcial Vu Jr., MD Wholesale Manager Department of Orthopaedic Surgery Division of Spine Surgery [facility] [place], [place] [phone] 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 * Nuvia Cantu NP - 11/08/2023 6:15 PM CSTAssociated Order(s): Critical Care Post-Procedure Diagnose(s): Paralysis of both lower limbs (CMS/HCC) (HCC) SICU Daily Progress Admit Date: 11/07/2023 LOS: 1 day Team: Blue PM 3 Subjective Patient is a 73 y.o.male with chief complaint of abdominal pain, BLE numbness/paralysis. Interval History: - Ramelteon qHS - Trazodone 50mg x1 - Ongoing pain control issues -> Increase PRN Oxy to 10mg Q4h, PRN Dilaudid to 0.5mg Q1h, start Lidocaine gtt - Lido level at 2300 - 11/09 0800 IVC filter - NPO & D5LR at 0000 - CT PE pending - Oliguria -> LR 500mL bolus - Reviewed and ordered pertinent laboratory tests. Reviewed any Radiological imaging pertinent to patients current treatments. Constant evaluation of I/O's, vitals and oxygen requirements throughout shift. Multiple bedside evaluations of patients over all status. HPI: 73 y.o. male with PMH: prostate CA, HTN, lumbar radiculopathy w/ recent hospitalization (10/12-10/30) for UTI, L ureteral stone and (10/23) L4-5 PSF post-op c/b seizure/code blue in PACU (ROSC after 2min CPR and Epi x1), CT head with small bilat SDH and CT PE bilat PEs, d/c home on therapeutic Lovenox. 11/07 Presented to OSH with sudden onset abdominal pain, BLE numbness/tingling, inability to ambulate. Previously had been ambulating with walker since 10/30/23 discharge. Transferred to [facility], MRI with longitudinally extending dorsal epidural and subdural collection T5-T6 through L5-S1 causing severe canal stenosis and cauda equina compression. 11/08 Patient taken emergently to OR with Ortho-Spine. In OR, 3.5 L crystalloid, 3 units PRBC, 1 unit FFP, 4 mg Dexamethasone. EBL 1250 cc. Arrived to 4400 extubated on 4 L NC, hemodynamically unsupported. Abbreviated Hospital Course: 11/08/23: s/p Laminectomy and thoracic decompression T5-L5, dural repair (Ortho spine) Objective Current Medications: Scheduled Meds: acetaminophen, 1,000 mg, oral, Q6H ceFAZolin, 2,000 mg, intravenous, Q8H CAMMY cetirizine, 10 mg, oral, Daily cholecalciferol, 5,000 Units, oral, Daily dexAMETHasone, 4 mg, intravenous, Q6H CAMMY docusate sodium, 100 mg, oral, BID gabapentin, 300 mg, oral, TID insulin lispro, 2-7 Units, subcutaneous, Q4H CAMMY ketorolac, 15 mg, intravenous, Q6H CAMMY levETIRAcetam, 1,000 mg, oral, BID lidocaine, 2 patch, transdermal, Daily pantoprazole DR, 40 mg, oral, Daily senna, 1 tablet, oral, BID tamsulosin, 0.8 mg, oral, Daily with dinner vancomycin, 15 mg/kg, intravenous, Q12H Continuous Infusions: [START ON 11/09/2023] dextrose 5% and Lactated Ringer's, 10 mL/hr PRN Meds: cyclobenzaprine dextrose OR dextrose glucagon hydrALAZINE HYDROmorphone ondansetron oxyCODONE prochlorperazine Vital signs for last 24 hours: Temp: [36.4 ??C (97.6 ??F)-37 ??C (98.6 ??F)] 36.8 ??C (98.2 ??F) Pulse: [81-121] 121 BP: (122-141)/(80-99) 132/93 Resp: [16-22] 19 SpO2: [83 %-100 %] 98 % Arterial Line BP: (172-192)/(84-92) 188/85 Most Recent : Vitals: 11/08/23 1600 11/08/23 1700 11/08/23 1730 11/08/23 1800 BP: 135/90 124/86 134/99 132/93 Pulse: 103 106 117 121 Resp: Temp: 36.8 ??C (98.2 ??F) 36.9 ??C (98.4 ??F) 36.8 ??C (98.2 ??F) 36.8 ??C (98.2 ??F) SpO2: 94% 95% (!) 83% 98% Weight: Height: Patient Weight 11/07/23 88.6 kg (195 lb 5.2 oz) 10/23/23 88.6 kg (195 lb 5.2 oz) 10/11/23 86.6 kg (190 lb 14.7 oz) 09/13/23 84.8 kg (187 lb) 10/25/22 83.9 kg (185 lb) 10/17/21 89 kg (196 lb 3.2 oz) Oxygen / Pulmonary Events: O2 Therapy: Supplemental oxygen O2 Del Method: Nasal cannula O2 Flow Rate (L/min): 2 L/min Vent settings for last 24 hours: Intake/Output last 24 hours: Intake/Output Summary (Last 24 hours) at 11/08/2023 1918 Last data filed at 11/08/2023 1600 Gross per 24 hour Intake 4412.5 ml Output 1665 ml Net 2747.5 ml Net IO Since Admission: 2,747.5 mL [11/08/231917] Physical Exam: General: No acute distress Neuro: A&Ox 2, PERRL, follows commands, UE 5/5, Bilat LE great toe movement weakly, +sensation throughout CV: NSR, S1S2. No M/G/R Pulm: Lungs clear to auscultation, respirations even/unlabored GI/Abd: Soft, non-tender, nondistended, active bowel sounds /Renal: harris catheter Extremities: No generalized edema, palpable pulses, warm, dry Lines/Tubes/Drains: right back surgical drains x2 to gravity with small amount serous output, woundvac in place Lab/Radiology/Diagnostic Review: Recent Results (from the past 12 hour(s)) POCT glucose Collection Time: 11/08/23 3:05 PM Result Value Ref Range Glucose, POC 171 70 - 199 mg/dL POCT glucose Collection Time: 11/08/23 7:10 PM Result Value Ref Range Glucose, POC 169 70 - 199 mg/dL Basic metabolic panel Collection Time: 11/08/23 9:01 PM Result Value Ref Range Sodium 136 135 - 145 mmol/L Potassium, pl 4.4 3.3 - 4.9 mmol/L Chloride 102 97 - 110 mmol/L CO2 22 22 - 32 mmol/L Anion gap 12 2 - 15 mmol/L BUN 18 6 - 25 mg/dL Creatinine 0.83 0.80 - 1.30 mg/dL Glucose 192 70 - 199 mg/dL Calcium 8.5 8.5 - 10.3 mg/dL CBC without differential Collection Time: 11/08/23 9:01 PM Result Value Ref Range WBC 14.0 (H) 3.8 - 9.9 K/cumm Hgb 11.0 (L) 13.0 - 17.5 g/dL Hct 33.3 (L) 38.9 - 50.3 % Plt 292 150 - 400 K/cumm MPV 11.1 9.1 - 12.3 fL RBC 3.62 (L) 4.30 - 5.80 M/cumm MCV 92.0 81.3 - 96.4 fL MCH 30.4 27.1 - 33.3 pg MCHC 33.0 32.3 - 35.7 g/dL RDW CV 14.4 11.1 - 14.9 % RDW SD 49.0 (H) 35.7 - 48.1 fL NRBC abs 0.00 0.00 - 0.01 K/cumm Magnesium Collection Time: 11/08/23 9:01 PM Result Value Ref Range Magnesium 2.3 1.4 - 2.5 mg/dL Phosphorus Collection Time: 11/08/23 9:01 PM Result Value Ref Range Phosphorus, pl 3.4 2.3 - 4.5 mg/dL eGFR Collection Time: 11/08/23 9:01 PM Result Value Ref Range eGFR >90 >=60 mL/min/1.73 m2 Imaging: MRI Spine Total Complete WO Contrast Narrative: EXAMINATION: 1. Magnetic resonance imaging (MRI) of the cervical spine without contrast 2. Magnetic resonance imaging (MRI) of the thoracic spine without contrast 3. Magnetic resonance imaging (MRI) of the lumbar spine without contrast HISTORY: 73-year-old man with recent postop from L4-L5 posterior spinal instrumentation and decompression, presenting with bilateral lower limb weakness. TECHNIQUE: Multiplanar multi-weighted MRI of the cervical spine was performed without intravenous contrast using the standard protocol. Multiplanar multi-weighted MRI of the thoracic spine was performed without intravenous contrast using the standard protocol. Multiplanar multi-weighted MRI of the lumbar spine was performed without intravenous contrast using the standard protocol. COMPARISON: Cervical spine 11/08/2023. MRI total spine 10/12/2023. FINDINGS: CERVICAL SPINE: The alignment of the cervical spine is straightened. There is mild anterolisthesis of C6 upon C7. Vertebral bodies demonstrate normal signal intensity on all sequences. No acute fracture is identified. The craniocervical junction is normal. The visualized portions of the skull base and the posterior fossa are unremarkable. The spinal cord demonstrates normal signal intensity on all sequences. Intervertebral disks have reduced disc height with disc desiccation. No soft tissue abnormality is identified. Normal signal voids are present in the vertebral arteries. Multilevel degenerative disc disease is noted with disc osteophyte complexes, facet and uncovertebral joint hypertrophy. Prominent ligamentum flavum infolding at C5-C6 and C6-C7. There is severe neural foraminal stenosis at C3-C4 on right side, C4-C5 on left side, C5-C6 bilaterally. There is mild spinal canal stenosis at C5-C6. THORACOLUMBAR SPINE: There are postsurgical changes from L4-L5 discectomy, posterior decompression and posterior instrumented spinal fixation. There is longitudinally extending dorsal subdural collection from L5-S1 through T5-T6. The maximum anterior-posterior dimension of this collection measures 12.5 mm at L4 level. This is causing severe spinal canal stenosis at these levels. There is a thin epidural collection extending from C5-C6 through T8-T9. There is T1/T2/FLAIR hyperintensity in the posterior paraspinal soft tissues (in the region of multifidus and erector spinae muscles) extending from L2 to S1 vertebral body levels that likely represents evolving hemorrhage from recent surgery. There is dextroscoliosis of the upper thoracic spine centered around T4-T5. There are hemangiomas within the T4 and T12 vertebral bodies. There is heterogeneous signal intensity of the bone marrow. There are no compression fractures. The spinal cord demonstrates normal signal intensity on all sequences. The conus medullaris terminates at the level of L1. Intervertebral disks have reduced disc height with disc desiccation at multiple levels. Limited views of the chest and abdomen show no soft tissue abnormality. The aorta is normal. Small disc protrusions at T3-T4, and from T7-T8 through T9-T10. There is mild multilevel facet arthropathy in the thoracic region. There is no high-grade neuroforaminal stenosis in the thoracic region. L4-L5: Discectomy and fusion. There is moderate facet arthropathy with severe left and moderate right ligamentum flavum infolding. There is moderately severe left neuroforaminal stenosis. L5-S1: Diffuse disc bulge. There is moderate bilateral facet arthropathy. There is moderate to severe bilateral neuroforaminal stenosis. Impression: 1. Postsurgical changes of L4-L5 discectomy, interbody and posterior fusion. 2. Longitudinally extending dorsal epidural and subdural collection from T5-T6 through L5-S1. This is favored to represent hematoma and less likely an abscess. 3. Otherwise, degenerative spine disease as described above. The critical results were discussed with Dr. Dr. Arti MD at 11/07/2023 1:[address] Hastings. Dictated by: Satinder Hastings MD The radiology attending physician has personally reviewed this study, and had reviewed and/or edited this written report and agrees with it. Electronically signed by: Zac Mcgarry M.D. US Vein Duplex Lower Extremity Bilateral Complete [facility] - Department of Vascular Surgery, Vascular Laboratory [address] [place] [address] Lower Extremity Venous Ultrasound Report Preliminary Patient Name: HIRA EVANS : 1950 (73y 4m) Study Date: 11/08/2023 2:22:46 PM Gender: M Tech: OK Location: [id number] Ref Provider: VICKI REHMAN Quality: Adequate Order Provider: VICKI REHMAN PROCEDURES: Vascular Report: Venous Duplex imaging was performed bilaterally in the lower extremities. The common femoral, femoral, popliteal, posterior tibial, peroneal veins were evaluated for patency, spontaneity and phasicity with Doppler, compression and augmentation maneuvers. Great saphenous vein proximal at the junction was evaluated with compression maneuvers. INDICATIONS: recent bilateral PE - FINDINGS: Performing Package Wrapper: Nola Walker RVT, RDMS. Bilateral: Venous Doppler signals in the bilateral lower extremity are within normal limits for spontaneity and phasicity and respond normally to augmentation maneuvers. No evidence of deep vein thrombus by duplex, proximal to the calf. CONCLUSIONS: 1. There is no evidence of acute deep vein thrombosis in the lower extremities bilaterally. Noninvasive venous studies cannot rule out isolated calf vein obstruction. HISTORY: s/p laminectomy thoracic decompression 11/08/2023. PREVIOUS STUDIES: No previous studies for comparison. DISCLAIMER: The study images and the final report will be retained in the patient chart by the Vascular Laboratory for the legally required time period. This chart constitutes the legal record of any testing performed. ATTESTATION: Electronically Signed By: 2023-11-08 15:05: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 Cervical Thoracic Lumbar Spine WO Contrast Narrative: EXAMINATION: 1. CT of the cervical spine without contrast 2. CT of the thoracic spine without contrast 3. CT of the lumbar spine without contrast HISTORY: 73-year-old undergoing with bilateral lower extremity numbness and tingling. TECHNIQUE: CT of the cervical spine was performed according to the standard protocol without intravenous contrast. CT of the thoracic spine was performed according to standard protocol without intravenous contrast. CT of the lumbar spine was performed according to the standard protocol without intravenous contrast. COMPARISON: Comparison CT from 10/11/2023. FINDINGS: CERVICAL SPINE: The alignment of the cervical spine is normal. There is no acute fracture. Vertebral bodies are normal in height without compression fractures. The craniocervical junction is normal. Limited views of the skull base appear normal. The sphenoid sinus is well aerated. No soft tissue abnormality is identified. Mild degenerative changes of the cervical spine worst at C5-C6 and C6-C7. There is multilevel moderate facet arthropathy. There is multilevel mild to moderate uncovertebral joint disease. There is mild multilevel neuroforaminal stenosis. There is no spinal canal stenosis. THORACIC SPINE: There are 12 rib-bearing thoracic vertebra. The alignment of the thoracic spine is normal. There is no acute fracture. Vertebral bodies are normal in height without compression fractures. Intervertebral disk heights are normal. There is no soft tissue abnormality. The thoracic aorta is normal. Diffuse skeletal hyperostosis is seen. Vertebral body hemangiomas are present. The disks are normal in configuration. There is no facet hypertrophy. There is no neuroforaminal stenosis. There is no spinal canal stenosis. LUMBAR SPINE: Postsurgical changes of L4-L5 discectomy, posterior decompression and posterior spinal fixation seen. Within the laminectomy bed and extending into the paraspinal musculature a rounded area of hyperattenuation is present. This extends proximally to the level of L2. Bone graft material is also present from L4 to L5. Instrumentation is intact. Small amount of gas in the soft tissues seen. Small foci of gas are also present within the spinal canal. These foci of gas appear to be within the thecal sac and are best seen from L1 through L3. Subtle hyperattenuation is seen within the thecal sac extending from L4-L5 through the mid thoracic spine. The alignment of the lumbar spine is normal. There is no acute fracture. The vertebral bodies are normal in height without compression fractures. The intervertebral disk heights are normal. Left-sided double-J ureteric stent is seen. The abdominal aorta appears normal. Degenerative changes of the nonfused lumbar spine levels most at L3-L4. There is mild bilateral facet arthropathy. There is mild neuroforaminal stenosis. There is no spinal canal stenosis. Impression: 1. Degenerative changes of the cervical and thoracic spine with no acute traumatic injuries identified. 2. Postsurgical changes of L4-L5 discectomy, interbody and posterior fusion with bone grafting. Gas in the soft tissues and spinal canal with adjacent confluent area of soft tissue attenuation can be seen in the setting of epidural abscess. Differential diagnosis would also include epidural hematoma. Recommend correlation with same day same-day MR report. Dictated by: Hernán Cárdenas M.D. The radiology attending physician has personally reviewed this study, and had reviewed and/or edited this written report and agrees with it. Electronically signed by: Zac Mcgarry M.D. XR Spine Thoracic 3 Vw Narrative: EXAMINATION: XR SPINE THORACIC 3 VIEWS, XR SPINE LUMBAR 2 OR 3 VIEWS HISTORY: Preoperative Impression: FINDINGS/IMPRESSION: Thoracic spine: 3 views of the thoracic spine are obtained for interpretation. Evaluation of the upper thoracic spine is limited due to overlying soft tissues. Vertebral body heights are maintained. Diffuse idiopathic skeletal hyperostosis. Partially imaged left ureteral stent catheter. Lumbar spine: 3 views of the lumbar spine are obtained for interpretation. Posterior spinal instrumentation and fixation of L4-L5 with interbody fusion. Degenerative disc disease of the spine. The vertebral body heights are maintained. Partially imaged left ureteral stent. Dictated by: Geovanna Cárdenas MD, MPH The radiology attending physician has personally reviewed this study, and had reviewed and/or edited this written report and agrees with it. Electronically signed by: Kendrick House M.D. XR Spine Lumbar 2 or 3 Views Narrative: EXAMINATION: XR SPINE THORACIC 3 VIEWS, XR SPINE LUMBAR 2 OR 3 VIEWS HISTORY: Preoperative Impression: FINDINGS/IMPRESSION: Thoracic spine: 3 views of the thoracic spine are obtained for interpretation. Evaluation of the upper thoracic spine is limited due to overlying soft tissues. Vertebral body heights are maintained. Diffuse idiopathic skeletal hyperostosis. Partially imaged left ureteral stent catheter. Lumbar spine: 3 views of the lumbar spine are obtained for interpretation. Posterior spinal instrumentation and fixation of L4-L5 with interbody fusion. Degenerative disc disease of the spine. The vertebral body heights are maintained. Partially imaged left ureteral stent. Dictated by: Geovanna Cárdenas MD, MPH The radiology attending physician has personally reviewed this study, and had reviewed and/or edited this written report and agrees with it. Electronically signed by: Kenrdick House M.D. Invasive lines/tubes/drains: Peripheral IV 11/08/23 22 G Posterior;Right Hand (Active) Placement Date/Time: 11/08/23 1839 Size (Gauge): 22 G Location Orientation: Posterior;Right Location: Hand Inserted by: iona coffey RN Insertion attempts: 1 Number of days: 0 Closed/Suction/Open Drain 1 Right Back Other (Comment) (Active) Placement Date/Time: 11/08/23 0940 Inserted by: Dr. Vu Tube Number: 1 Orientation: Right Location: Back Drain Tube Type: (c) Other (Comment) Size (Fr.): (c) Drain [place] Size (mL): 266 mL Number of Sutures Placed: 1 Number of days: 0 Closed/Suction/Open Drain 2 Right Back (Active) Placement Date/Time: 11/08/23 0940 Inserted by: Dr. Vu Tube Number: 2 Orientation: Right Location: Back Drain Tube Type: (c) Size (Fr.): (c) Drain [place] Size (mL): 266 mL Number of Sutures Placed: 1 Number of days: 0 Urethral Catheter Straight-tip;Temperature probe (Active) Placement Date/Time: 11/08/23 0400 Inserted by: José Miguel Dunlap RN Catheter Type: Straight-tip;Temperature probe Tube Size (Fr.): 16 Fr Catheter Balloon Size: 10 mL Urine Returned: Yes Number of days: 0 Assessment /Plan Assessment: Patient is a 73 y.o. male here for the following medical problems: Principal Problem: Paralysis of both lower limbs (CMS/HCC) ([facility]) Plan by system: Neurologic: Overall CAM-ICU: Positive (11/08/23 1500) #Acute on chronic pain - Continue home Gabapentin 300 mg TID - Scheduled Acetaminophen 1,000 mg q6hr - Continue home Cyclobenzaprine 5 mg TID PRN - Start Lidocaine gtt, Lidocaine level / 2300 - Increase PRN Oxycodone to 10 mg q3hr, and PRN Hydromorphone to 0.5 q1hr - Pain goal <4/10, patient appears comfortable in hospital bed, will frequently reassess #Cauda equina, POA #Epidural hematoma T5-L5, POA, likely 2/2 anticoagulation - 10/23/23 L4-L5 PSF and decompression c/b seizure/code in PACU. Found to have small bilateral SDH,bilateral PE. Discharged 10/30/23 on therapeutic Lovenox. - 1/3/24 Patient presented to OSH with sudden onset BLE numbness/paralysis - 11/08/23 MRI spine with longitudinally extending dorsal epidural and subdural collection T5-T6 through L5-S1 causing severe canal stenosis and cauda equina compression. - 11/08/23 Laminectomy and thoracic decompression T5-L5, dural repair - Holding anticoagulation x2 weeks (per Heme), hold DVT ppx, MAP >80 x24 hours, TLSO brace when OOB, Dexamethasone 4 mg q6hr x7 days (end 11/15), q1hr Neuro checks, Vancomycin and Cefazolin while drains in place, per ortho spine - Drains x2 (deep) to gravity, continue to monitor output - Wound vac in place, continue to monitor output, plan to take down 11/15 - Ortho-Spine primary #Bilateral subdural hematomas, subacute - 10/23/23 CT head with bilateral subdural hematomas along the cerebral convexities, likely subacute. 10/28/23 CT head with no acute changes - Continue home Levetiracetam 1,000 mg po BID #Insomnia - Ramelteon 8mg qHS - Trazodone 50mg x1 - Sleep hygiene, delirium precautions Cardiovascular: #HTN, chronic - holding home Diltiazem XR 240 mg, Irbesartan 300 mg - PRN Hydralazine 10 mg q4hr for SBP >180 - MAP goal >80 x24 hr, per ortho spine - TTE (10/24/23): Mild-moderate RV cavity enlargement with Terrell sign. Overall, normal RV function. LV cavity size normal with normal systolic function. [id number]%. Grade I diastolic function with normal mean LA pressure. Pulmonary: #Acute respiratory insufficiency - Currently 4 L NC, wean as able - Pulm hygiene, SpO2 goal >92%, IS, PT/OT #Bilateral pulmonary embolism, subacute, POA - 10/23/23 CT PE with acute pulmonary emboli involving the distal right and left main pulmonary arteries extending into all bilateral lobar and multiple bilateral segmental pulmonary arteries. - 10/30/23 discharged home on therapeutic Lovenox 80 mg subq q12hr, last dose 11/07 - 11/08/23 LED with no evidence of acute deep vein thrombosis - IR consult for IVC filter placement, per ortho spine --> 11/09 Plan for IVC filter - Hematology following, recommend no anticoagulation x2 weeks - CT PE pending completion - LED (11/08): Negative for acute DVTs GI: Nutrition: CLD, NPO at midnight Bowel regimen: senna, docusate PU Ppx: n/a #GERD, chronic - Holding home Omeprazole - Pantoprazole 40 mg po daily #Nausea/vomiting - Zofran & Compazine PRN #Hypomagnesemia - Replete per protocol #Vitamin D deficiency, chronic - Continue home cholecalciferol Endocrine: #DM2, chronic #Hyperglycemia, likely 2/2 steroids - Holding home Mounjaro - HDSSI - D5LR 10 ml/hr at 2400 Renal: Intake/Output Summary (Last 24 hours) at 11/08/2023 1918 Last data filed at 11/08/2023 1600 Gross per 24 hour Intake 4412.5 ml Output 1665 ml Net 2747.5 ml - Monitor renal function and electrolytes - Replete electrolytes as needed - Monitor I&Os - Voiding: harris catheter #h/o Ureteral stone - 10/14/23 Perc nephrostomy (IR) - 10/18/23 Lithotripsy, removal of stones x2, removal of nephrostomy tube, left ureteral stent placed - Strict I&O #h/o Prostate cancer s/p prostatectomy (2010), POA - Continue home Tamsulosin 0.8 mg Hematology: DVT Ppx: SCDs, no chem ppx per orthospine LEDs: 11/08 Negative #ABLA - CBC stable - Monitor for s/s acute bleeding - Transfuse if clinically indicated ID: #Leukocytosis, likely reactive - Follow WBC and fever curve - Abx while drains in place Cultures: 10/24 HIV: Nonreactive Abx: Hold home Acyclovir 400 mg po BID for HSV Cefazolin (11/08/22- ) 2 gram q8hr Vancomycin (11/08/22- ) 1250 mg q12hr --> F/u Vanc trough 11/10/23 at 0230 Intensive Care Unit Standards of Care: Restraints: n/a DVT prophylaxis: SCDs GI prophylaxis: n/a Lines: PIVs Goals of care: Full Code Discussed Assessment and Plan with ICU Fellow and ICU Attending RANJAN Merino 11/08/23 7:18 PM Critical Care Performed by: Nuvia Cantu NP Authorized by: Nuvia Cantu NP CRITICAL CARE: Team: SICU BLUE Shift: PM Level of Billing: Critical Care My time spent with this patient was 100 minutes: Critical Provider Statement: I have seen and examined the patient on this day of service. I have reviewed and confirmed the history, physical exam, laboratory and radiologic data as documented in thesigned ICU note. I have reviewed and discussed my treatment plan with the ICU team and other medical/leadership development consultant staff, making frequent assessments and decisions regarding this patient's complex medical care. Critical Care time was exclusive of time spent performing separately billed procedures, treating other patients, and teaching. This time was in addition to and separate from critical care provided by other practitioners in my group on this day of service. Critical Care was necessary to treat or prevent imminent or life-threatening deterioration of the following conditions: I spent time reviewing and interpreting data from bedside monitors, laboratory results, and imaging, I spent time discussing the management of this critically ill patient with consultants and the medical staff and I spent time documenting in the medical record Cosigned by Dmitry Neal MD at 11/11/2023 4:21 AM ELEC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 * Nasir Manzanares MD - 11/08/2023 2:16 PM CST Ortho Spine Post-Op Note Diagnosis: Epidural hematoma Surgical Procedure: Procedure(s) (LRB): LAMINECTOMY THORACIC DECOMPRESSION (N/A) LAMINECTOMY LUMBAR - POSTERIOR (N/A) SPINAL CORD MONITORING (N/A) REPAIR DURAL TEAR (N/A) Subjective Hira Evans seen post-operatively in the SICU. Patient is awake and alert to verbal stimuli. Pain is controlled. The patient denies chest pain, denies nausea/emesis, and denies shortness of breath. Objective Vitals: Most Recent: Vitals: 11/08/23 1400 BP: 127/87 Pulse: 99 Resp: 21 Temp: 36.8 ??C (98.2 ??F) SpO2: 99% Physical Exam: Gen: no acute distress Neuro: A&Ox2 Dressing: ivac Wound Vac(s): Holding suction nicely, no apparent leaks Hemo Vac(s): x2 to gravity Motor: Muscle Strength Right Left Shoulder abduction (C5) 5/5 5/5 Elbow flexion (C5/6) 5/5 5/5 Elbow extension (C7) 5/5 5/5 Wrist extension (C6) 5/5 5/5 Wrist flexion (C7) 5/5 5/5 Mangle Press Catcher (C8) 5/5 5/5 Interosseous of hand (T1) 5/5 5/5 Iliopsoas (L2/3) 0/5 0/5 Quadriceps (L3/4) 0/5 0/5 Tibialis anterior (L4/5) 2/5 0/5 Extensor hallicus longus (L5) 2/5 0/5 Gastrocsoleus complex (S1) 0/5 0/5 Sensation Left upper extremity: SILT C5 to T1 dermatomes. Right upper extremity: SILT C5 to T1 dermatomes. Left lower extremity: SILT L2 to S1 dermatomes. Right lower extremity: SILT L2 to S1 dermatomes. Long-tract signs: Negative Milner's BUE 0 beats clonus BLE Equivocal Babinski BLE Vascular: Bilateral Upper Extremity: 2+ radial pulse, fingers WWP Bilateral Lower Extremity: 2+ DP pulse, toes WWP Assessment/Plan Patient is recovering appropriately in the early post-operative period. MAP goals >80 for 24 hours Ancef and Vanc while drains are in (ortho will manage drains) Wound vac for 7 days (comes down 11/15) Heme c/s for AC risk stratification IR consult for filter placement V/Q or CTPE scan to evaluate PE burden BLE duplex u/s Decadron 4mg q6h x7 days (11/15) Nasir Manzanares MD Orthopaedic Surgery PGY2 Cosigned by Marcial Vu MD at 11/08/2023 4:24 PM ELEC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 * Marcial Vu MD - 11/08/2023 1:38 AM CST I have reviewed his MRI and spoke with an on-call neuroradiologist who also reviewed the imaging. There is a dorsal epidural fluid collection extending from L4-L5 distally to the level of T5-T6 proximally causing severe canal stenosis with spinal cord and cauda equina compression at these levels. CT shows that the spine is ankylosed T4-L2. His last Lovenox dose was late morning Sunday, 11/07. I spoke with pharmacy about potential need for Lovenox reversal. He is greater than 12 hours out from his last dose and has no renal insufficiency so no reversal is needed. Plan for emergent OR for thoracic and lumbar spine laminectomies and hematoma decompression. I spoke with him, his , Val, and their close friend, Susy, about this plan. We discussed risks and benefits. Risks include infection, blood loss, spinal cord and nerve injury, paralysis, hematoma, potential risk for spinal instability which may require additional surgery, DVT/PE, medical complications, stroke, and . Benefits of the surgery include decompressing the spinal cord and cauda equina to give him the greatest likelihood of regaining function in his lower extremities. Everyone expressed understanding and would like to proceed with surgery. All questions were answered. He will go to the surgical ICU postoperatively. Their family friend, Susy, who is also a GI attending at [employer], inquired about the potential for performing a V/Q scan after surgery and potentially avoiding any additional anticoagulation after this surgery if his pulmonary emboli have resolved and oxygenation is appropriate. I told her that I would ask the ICU about this. He should also get bilateral lower extremity venous duplexes postoperatively and potentially an IVC filter if he has DVTs. Marcial Vu Jr., MD Wholesale Manager Department of Orthopaedic Surgery Division of Spine Surgery [employer] [place], [place] 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 * Marcial Vu MD - 11/07/2023 10:52 PM CST I personally examined Mr. Evans at the bedside on 11/07/22 when he arrived in the ED. He has had subjectively diminished sensation from the level of the waist distally and severe bilateral lower extremity weakness since approximately 6:15 p.m. this evening. On examination, he is resting comfortably in bed. He is alert and oriented x3. He has 5/5 strength in bilateral deltoids, biceps, triceps, wrist extensors, wrist flexors, finger extensors, finger flexors, and interossei. He has intact sensation to light touch throughout bilateral upper extremities.Tyrese and inverted radial reflex are negative bilaterally. 2+ reflexes throughout bilateral upper extremities. He has 2/5 strength in the right tibialis anterior and EHL, otherwise he has 0/5 strength throughout bilateral lower extremities. Sensation is intact to light touch throughout bilaterallower extremities. No clonus bilaterally. Babinski nonreactive bilaterally. Rectal examination performed by the resident was notable for intact resting and volitional tone with intact perianal sensation but inability to differentiate sharp/dull. Given the overall clinical picture, I am concerned about a hematoma causing compression of the spinal cord and/or cauda equina. Plan: 1. MRI without contrast of the entire spine emergently 2. NPO 3. If OR tonight, will need reversal of Lovenox 4. Will need bilateral lower extremity venous duplexes and if these show DVTs, would recommend IVC filter. These should not hold up OR if MRI shows spinal cord and/or cauda equina compression. Marcial Vu Jr., MD Wholesale Manager Department of Orthopaedic Surgery Division of Spine Surgery [facility] [place], [place] 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 documented in this encounter H&P Notes * Vicki Rehman, CARLA - 11/08/2023 12:12 PM CSTAssociated Order(s): Critical Care ICU History and Physical Team: Blue AM Subjective Hira Evans is a 73 y.o. male presented to the ICU with chief complaint of abdominal pain,BLE numbness/paralysis. HPI: 73 y.o. male with PMH: prostate CA, HTN, lumbar radiculopathy w/ recent hospitalization (10/12-10/30) for UTI, L ureteral stone and (10/23) L4-5 PSF post-op c/b seizure/code blue in PACU (ROSC after 2min CPR and Epi x1), CT head with small bilat SDH and CT PE bilat PEs, d/c home on therapeutic Lovenox. 11/07 Presented to OSH with sudden onset abdominal pain, BLE numbness/tingling, inability to ambulate. Previously had been ambulating with walker since 10/30/23 discharge. Transferred to [facility], MRI with longitudinally extending dorsal epidural and subdural collection T5-T6 through L5-S1 causing severe canal stenosis and cauda equina compression. 11/08 Patient taken emergently to OR with Ortho-Spine. In OR, 3.5 L crystalloid, 3 units PRBC, 1 unit FFP, 4 mg Dexamethasone. EBL 1250 cc. Arrived to 4400 extubated on 4 L NC, hemodynamically unsupported. Abbreviated Hospital Course: 11/08/23: s/p Laminectomy and thoracic decompression T5-L5, dural repair (Ortho spine) Past Medical History: Diagnosis Date Allergic rhinitis Arthritis OA Cancer (CMS/HCC) (HCC) prostate and melonomia Gastric reflux GERD (gastroesophageal reflux disease) History of melanoma Hypertension Kidney stone Personal history of prostate cancer Pneumonia Seasonal allergies Past Surgical History: Procedure Laterality Date FL UPPER GI AIR CONTRAST W KUB Left 09/21/2023 JOINT REPLACEMENT Right 2013 right knee replacement MELANOMA RESECTION Right 2005 right flank PERCUTANEOUS NEPHROSTOMY PCN LEFT Left 10/14/2023 PROSTATECTOMY 2009 REPLACEMENT TOTAL KNEE Left 10/17/2021 REVISION TOTAL KNEE ARTHROPLASTY Right 09/30/2019 VASECTOMY 30 years ago Medications Prior to Admission Medication Sig Dispense Refill Last Dose acyclovir (ZOVIRAX) 400 mg tablet Take 1 tablet (400 mg total) by mouth 2 (two) times a day 3 cephalexin (KEFLEX) 500 mg capsule Take 1 capsule (500 mg total) by mouth daily as needed (30 minutes prior to dental appt) When pt has procedures gets pre antibiotic r/t history knee replacements cetirizine (ZyrTEC) 10 mg tablet Take 1 tablet (10 mg total) by mouth import coordinator before breakfast cholecalciferol (VITAMIN D-3) 5,000 unit capsule Take 1 capsule (5,000 Units total) by mouth every morning coenzyme Q10 100 mg capsule Take 1 capsule (100 mg total) by mouth import coordinator before breakfast cyclobenzaprine (FLEXERIL) 5 mg tablet Take 1 tablet (5 mg total) by mouth 3 (three) times a day asneeded for muscle spasms 90 tablet 0 DILT-XR 240 mg 24 hr capsule Take 1 capsule (240 mg total) by mouth 2 (two) times a day 0 enoxaparin (LOVENOX) 80 mg/0.8 mL syringe Inject 0.8 mL (80 mg total) under the skin every 12 (twelve) hours 48 mL 2 fish,bora,flax oils-om3,6,9no1 400-400-400 mg capsule Take 1 tablet by mouth import coordinator before breakfast gabapentin (NEURONTIN) 300 mg capsule Take 1 capsule (300 mg total) by mouth every 8 (eight) hours 90 capsule 0 irbesartan (AVAPRO) 300 mg tablet Take 1 tablet (300 mg total) by mouth every morning ketorolac (TORADOL) 10 mg tablet Take 1 tablet (10 mg total) by mouth every 6 (six) hours as neededfor pain 20 tablet 0 levETIRAcetam (KEPPRA) 1,000 mg tablet Take 1 tablet (1,000 mg total) by mouth 2 (two) times a day 60 tablet 1 Mounjaro 10 mg/0.5 mL pen injector Inject 10 mg under the skin once a week Sunday omeprazole (PriLOSEC) 20 mg capsule Take 1 capsule (20 mg total) by mouth every morning oxyCODONE (ROXICODONE) 5 mg immediate release tablet Take 1 tablet (5 mg total) by mouth every 4 (four) hours as needed for pain 30 tablet 0 senna-docusate (PERICOLACE) 8.6-50 mg Take 1 tablet by mouth 2 (two) times a day for 15 days 30 tablet 0 tamsulosin (FLOMAX) 0.4 mg extended release capsule Take 2 capsules (0.8 mg total) by mouth daily with dinner 60 capsule 0 No Known Allergies Social History Tobacco Use [...] by TW Conv) Anesthesia problems Neg Hx Review of Systems: Review of Systems Constitutional: Negative. HENT: Negative. Eyes: Negative. Respiratory: Negative. Cardiovascular: Negative. Gastrointestinal: Negative. Genitourinary: Negative. Musculoskeletal: Positive for back pain and myalgias. Skin: Negative. Neurological: Positive for weakness. Endo/Heme/Allergies: Negative. Psychiatric/Behavioral: Negative. Vitals: Most Recent : Vitals: 11/07/23 2215 BP: 137/81 Pulse: 82 Resp: 16 Temp: SpO2: 98% Hemodynamics: MAP (mmHg): [96-112] 99 Pulmonary Support: O2 Therapy: None (Room air) Intake/Output: Intake/Output Summary (Last 24 hours) at 11/08/2023 1212 Last data filed at 11/08/2023 1028 Gross per 24 hour Intake 4100 ml Output 1460 ml Net 2640 ml Objective Physical exam: General: No Acute Distress Neuro: A&Ox4, follows commands BUE, BUE 5/5, LLE no movement, RLE great toe movement, sensationintact x4 Cardiac: S1 and S2, Regular Rate and Rhythm, no M/G/R Pulmonary: Lungs clear/diminished to auscultation, respirations even/unlabored on NC Abdominal: Soft/Nontender/Nondistended, normoactive bowel sounds Extremities: No edema, Pulses Present and Palpable Drains: Harris, right back surgical drains x2 to gravity with small amount serous output, wound vac in place Wounds: See RN flowsheet Lab/Radiology/Diagnostic Review: Laboratory review: Lab results in the last 24 hours: Recent Results (from the past 24 hour(s)) CBC without differential Collection Time: 11/07/23 11:01 PM Result Value Ref Range WBC 12.0 (H) 3.8 - 9.9 K/cumm Hgb 9.5 (L) 13.0 - 17.5 g/dL Hct 29.0 (L) 38.9 - 50.3 % Plt 343 150 - 400 K/cumm MPV 10.9 9.1 - 12.3 fL RBC 3.08 (L) 4.30 - 5.80 M/cumm MCV 94.2 81.3 - 96.4 fL MCH 30.8 27.1 - 33.3 pg MCHC 32.8 32.3 - 35.7 g/dL RDW CV 13.7 11.1 - 14.9 % RDW SD 46.8 35.7 - 48.1 fL NRBC abs 0.00 0.00 - 0.01 K/cumm Basic metabolic panel Collection Time: 11/07/23 11:01 PM Result Value Ref Range Sodium 141 135 - 145 mmol/L Potassium, pl 4.2 3.3 - 4.9 mmol/L Chloride 104 97 - 110 mmol/L CO2 28 22 - 32 mmol/L Anion gap 9 2 - 15 mmol/L BUN 14 6 - 25 mg/dL Creatinine 0.98 0.80 - 1.30 mg/dL Glucose 142 70 - 199 mg/dL Calcium 8.6 8.5 - 10.3 mg/dL Protime-INR Collection Time: 11/07/23 11:01 PM Result Value Ref Range PT 12.6 10.3 - 13.7 sec INR 1.11 0.90 - 1.20 aPTT Collection Time: 11/07/23 11:01 PM Result Value Ref Range aPTT 32 28 - 38 sec Type and screen Collection Time: 11/07/23 11:01 PM Result Value Ref Range Jigna, indirect Negative ABO Rh O Positive eGFR Collection Time: 11/07/23 11:01 PM Result Value Ref Range eGFR 82 >=60 mL/min/1.73 m2 Prepare RBC: 4 Units Collection Time: 11/08/23 2:28 AM Result Value Ref Range Product code A7818L97 Unit Number [id number] Product Blood Type OPOS Dispense Status ISSUED Product code V3890D41 Unit Number [id number] Product Blood Type OPOS Dispense Status RETURNED Product code S7847C55 Unit Number [id number] Product Blood Type OPOS Dispense Status ISSUED Product code P2820S00 Unit Number [id number] Product Blood Type OPOS Dispense Status ISSUED Prepare plasma: 4 Units Collection Time: 11/08/23 2:28 AM Result Value Ref Range Product code G2214V29 Unit Number [id number] Product Blood Type OPOS Dispense Status RETURNED Product code O2056G65 Unit Number [id number] Product Blood Type OPOS Dispense Status RETURNED Product code K9507Z05 Unit Number [id number] Product Blood Type OPOS Dispense Status RETURNED Product code J5270J75 Unit Number [id number] Product Blood Type OPOS Dispense Status ISSUED POC Blood Gas and Chemistries, Arterial - Collection Time: 11/08/23 4:18 AM Result Value Ref Range pH, Art POC 7.45 7.35 - 7.45 pCO2, Art POC 35 35 - 45 mmHg pO2, Art POC 322 (H) 83 - 108 mmHg Na, POC 136 135 - 145 mmol/L K POC 3.5 3.3 - 4.9 mmol/L Cl, POC 108 97 - 110 mmol/L Ionized Ca, POC 4.62 4.50 - 5.10 mg/dL Glucose, POC 123 70 - 199 mg/dL Lactate, POC 0.7 0.7 - 2.2 mmol/L SO2 (mindy) arterial 99 (H) 90 - 95 % Base excess, POC 0.4 mmol/L HCO3, Art POC 24 20 - 30 mmol/L Hct, POC 26.0 (L) 41.4 - 51.6 % O2 Sat, Art POC (Calc) 100 % Total Hb, POC 8.6 (L) 13.8 - 17.2 g/dL POC Blood Gas and Chemistries, Arterial - Collection Time: 11/08/23 6:00 AM Result Value Ref Range pH, Art POC 7.39 7.35 - 7.45 pCO2, Art POC 40 35 - 45 mmHg pO2, Art POC 158 (H) 83 - 108 mmHg Na, POC 136 135 - 145 mmol/L K POC 3.7 3.3 - 4.9 mmol/L Cl, POC 109 97 - 110 mmol/L Ionized Ca, POC 4.53 4.50 - 5.10 mg/dL Glucose, POC 131 70 - 199 mg/dL Lactate, POC 0.7 0.7 - 2.2 mmol/L SO2 (mindy) arterial 100 (H) 90 - 95 % Base excess, POC -0.7 mmol/L HCO3, Art POC 24 20 - 30 mmol/L Hct, POC 29.0 (L) 41.4 - 51.6 % O2 Sat, Art POC (Calc) 99 % Total Hb, POC 9.6 (L) 13.8 - 17.2 g/dL POC Blood Gas and Chemistries, Arterial - Collection Time: 11/08/23 7:05 AM Result Value Ref Range pH, Art POC 7.42 7.35 - 7.45 pCO2, Art POC 33 (L) 35 - 45 mmHg pO2, Art POC 156 (H) 83 - 108 mmHg Na, POC 135 135 - 145 mmol/L K POC 3.8 3.3 - 4.9 mmol/L Cl, POC 109 97 - 110 mmol/L Ionized Ca, POC 4.66 4.50 - 5.10 mg/dL Glucose, POC 146 70 - 199 mg/dL Lactate, POC 0.6 (L) 0.7 - 2.2 mmol/L SO2 (mindy) arterial 99 (H) 90 - 95 % Base excess, POC -2.6 mmol/L HCO3, Art POC 21 20 - 30 mmol/L Hct, POC 29.0 (L) 41.4 - 51.6 % O2 Sat, Art POC (Calc) 99 % Total Hb, POC 9.8 (L) 13.8 - 17.2 g/dL POC Blood Gas and Chemistries, Arterial - Collection Time: 11/08/23 8:22 AM Result Value Ref Range pH, Art POC 7.38 7.35 - 7.45 pCO2, Art POC 38 35 - 45 mmHg pO2, Art POC 153 (H) 83 - 108 mmHg Na, POC 135 135 - 145 mmol/L K POC 4.5 3.3 - 4.9 mmol/L Cl, POC 109 97 - 110 mmol/L Ionized Ca, POC 5.14 (H) 4.50 - 5.10 mg/dL Glucose, POC 187 70 - 199 mg/dL Lactate, POC 0.8 0.7 - 2.2 mmol/L SO2 (mindy) arterial 99 (H) 90 - 95 % Base excess, POC -2.3 mmol/L HCO3, Art POC 22 20 - 30 mmol/L Hct, POC 32.0 (L) 41.4 - 51.6 % O2 Sat, Art POC (Calc) 99 % Total Hb, POC 10.6 (L) 13.8 - 17.2 g/dL POCT glucose Collection Time: 11/08/23 11:41 AM Result Value Ref Range Glucose, POC 173 70 - 199 mg/dL Calcium, ionized Collection Time: 11/08/23 11:51 AM Result Value Ref Range Calcium, Ionized 4.58 4.50 - 5.10 mg/dL Recent Results (from the past 48 hour(s)) CBC without differential Collection Time: 11/07/23 11:01 PM Result Value Ref Range WBC 12.0 (H) 3.8 - 9.9 K/cumm Hgb 9.5 (L) 13.0 - 17.5 g/dL Hct 29.0 (L) 38.9 - 50.3 % Plt 343 150 - 400 K/cumm MPV 10.9 9.1 - 12.3 fL RBC 3.08 (L) 4.30 - 5.80 M/cumm MCV 94.2 81.3 - 96.4 fL MCH 30.8 27.1 - 33.3 pg MCHC 32.8 32.3 - 35.7 g/dL RDW CV 13.7 11.1 - 14.9 % RDW SD 46.8 35.7 - 48.1 fL NRBC abs 0.00 0.00 - 0.01 K/cumm Basic metabolic panel Collection Time: 11/07/23 11:01 PM Result Value Ref Range Sodium 141 135 - 145 mmol/L Potassium, pl 4.2 3.3 - 4.9 mmol/L Chloride 104 97 - 110 mmol/L CO2 28 22 - 32 mmol/L Anion gap 9 2 - 15 mmol/L BUN 14 6 - 25 mg/dL Creatinine 0.98 0.80 - 1.30 mg/dL Glucose 142 70 - 199 mg/dL Calcium 8.6 8.5 - 10.3 mg/dL Protime-INR Collection Time: 11/07/23 11:01 PM Result Value Ref Range PT 12.6 10.3 - 13.7 sec INR 1.11 0.90 - 1.20 aPTT Collection Time: 11/07/23 11:01 PM Result Value Ref Range aPTT 32 28 - 38 sec Type and screen Collection Time: 11/07/23 11:01 PM Result Value Ref Range Jigna, indirect Negative ABO Rh O Positive eGFR Collection Time: 11/07/23 11:01 PM Result Value Ref Range eGFR 82 >=60 mL/min/1.73 m2 Prepare RBC: 4 Units Collection Time: 11/08/23 2:28 AM Result Value Ref Range Product code W2326B00 Unit Number [id number] Product Blood Type OPOS Dispense Status ISSUED Product code Q1640V70 Unit Number [id number] Product Blood Type OPOS Dispense Status RETURNED Product code J6919M22 Unit Number [id number] Product Blood Type OPOS Dispense Status ISSUED Product code M5895M94 Unit Number [id number] Product Blood Type OPOS Dispense Status ISSUED Prepare plasma: 4 Units Collection Time: 11/08/23 2:28 AM Result Value Ref Range Product code F2337Z00 Unit Number [id number] Product Blood Type OPOS Dispense Status RETURNED Product code P7103Z03 Unit Number [id number] Product Blood Type OPOS Dispense Status RETURNED Product code Z5198K68 Unit Number [id number] Product Blood Type OPOS Dispense Status RETURNED Product code N3572K11 Unit Number [id number] Product Blood Type OPOS Dispense Status ISSUED POC Blood Gas and Chemistries, Arterial - Collection Time: 11/08/23 4:18 AM Result Value Ref Range pH, Art POC 7.45 7.35 - 7.45 pCO2, Art POC 35 35 - 45 mmHg pO2, Art POC 322 (H) 83 - 108 mmHg Na, POC 136 135 - 145 mmol/L K POC 3.5 3.3 - 4.9 mmol/L Cl, POC 108 97 - 110 mmol/L Ionized Ca, POC 4.62 4.50 - 5.10 mg/dL Glucose, POC 123 70 - 199 mg/dL Lactate, POC 0.7 0.7 - 2.2 mmol/L SO2 (mindy) arterial 99 (H) 90 - 95 % Base excess, POC 0.4 mmol/L HCO3, Art POC 24 20 - 30 mmol/L Hct, POC 26.0 (L) 41.4 - 51.6 % O2 Sat, Art POC (Calc) 100 % Total Hb, POC 8.6 (L) 13.8 - 17.2 g/dL POC Blood Gas and Chemistries, Arterial - Collection Time: 11/08/23 6:00 AM Result Value Ref Range pH, Art POC 7.39 7.35 - 7.45 pCO2, Art POC 40 35 - 45 mmHg pO2, Art POC 158 (H) 83 - 108 mmHg Na, POC 136 135 - 145 mmol/L K POC 3.7 3.3 - 4.9 mmol/L Cl, POC 109 97 - 110 mmol/L Ionized Ca, POC 4.53 4.50 - 5.10 mg/dL Glucose, POC 131 70 - 199 mg/dL Lactate, POC 0.7 0.7 - 2.2 mmol/L SO2 (mindy) arterial 100 (H) 90 - 95 % Base excess, POC -0.7 mmol/L HCO3, Art POC 24 20 - 30 mmol/L Hct, POC 29.0 (L) 41.4 - 51.6 % O2 Sat, Art POC (Calc) 99 % Total Hb, POC 9.6 (L) 13.8 - 17.2 g/dL POC Blood Gas and Chemistries, Arterial - Collection Time: 11/08/23 7:05 AM Result Value Ref Range pH, Art POC 7.42 7.35 - 7.45 pCO2, Art POC 33 (L) 35 - 45 mmHg pO2, Art POC 156 (H) 83 - 108 mmHg Na, POC 135 135 - 145 mmol/L K POC 3.8 3.3 - 4.9 mmol/L Cl, POC 109 97 - 110 mmol/L Ionized Ca, POC 4.66 4.50 - 5.10 mg/dL Glucose, POC 146 70 - 199 mg/dL Lactate, POC 0.6 (L) 0.7 - 2.2 mmol/L SO2 (mindy) arterial 99 (H) 90 - 95 % Base excess, POC -2.6 mmol/L HCO3, Art POC 21 20 - 30 mmol/L Hct, POC 29.0 (L) 41.4 - 51.6 % O2 Sat, Art POC (Calc) 99 % Total Hb, POC 9.8 (L) 13.8 - 17.2 g/dL POC Blood Gas and Chemistries, Arterial - Collection Time: 11/08/23 8:22 AM Result Value Ref Range pH, Art POC 7.38 7.35 - 7.45 pCO2, Art POC 38 35 - 45 mmHg pO2, Art POC 153 (H) 83 - 108 mmHg Na, POC 135 135 - 145 mmol/L K POC 4.5 3.3 - 4.9 mmol/L Cl, POC 109 97 - 110 mmol/L Ionized Ca, POC 5.14 (H) 4.50 - 5.10 mg/dL Glucose, POC 187 70 - 199 mg/dL Lactate, POC 0.8 0.7 - 2.2 mmol/L SO2 (mindy) arterial 99 (H) 90 - 95 % Base excess, POC -2.3 mmol/L HCO3, Art POC 22 20 - 30 mmol/L Hct, POC 32.0 (L) 41.4 - 51.6 % O2 Sat, Art POC (Calc) 99 % Total Hb, POC 10.6 (L) 13.8 - 17.2 g/dL POCT glucose Collection Time: 11/08/23 11:41 AM Result Value Ref Range Glucose, POC 173 70 - 199 mg/dL Calcium, ionized Collection Time: 11/08/23 11:51 AM Result Value Ref Range Calcium, Ionized 4.58 4.50 - 5.10 mg/dL MRI Spine Total Complete WO Contrast Result Date: 11/08/2023 1. Postsurgical changes of L4-L5 discectomy, interbody and posterior fusion. 2. Longitudinally extending dorsal epidural and subdural collection from T5-T6 through L5-S1. This is favored to representhematoma and less likely an abscess. 3. Otherwise, degenerative spine disease as described above. The critical results were discussed with Dr. Dr. Arti MD at 11/07/2023 1:[address] Hastings. Dictated by: Satinder Hastings MD XR Spine Lumbar 2 or 3 Views Result Date: 11/08/2023 FINDINGS/IMPRESSION: Thoracic spine: 3 views of the thoracic spine are obtained for interpretation.Evaluation of the upper thoracic spine is limited due to overlying soft tissues. Vertebral body heights are maintained. Diffuse idiopathic skeletal hyperostosis. Partially imaged left ureteral stent catheter. Lumbar spine: 3 views of the lumbar spine are obtained for interpretation. Posterior spinal instrumentation and fixation of L4-L5 with interbody fusion. Degenerative disc disease of the spine. The vertebral body heights are maintained. Partially imaged left ureteral stent. Dictated by: Geovanna Cárdenas MD, MPH The radiology attending physician has personally reviewed this study, and had reviewed and/or edited this written report and agrees with it. Electronically signed by: Kendrick House M.D. XR Spine Thoracic 3 Vw Result Date: 11/08/2023 FINDINGS/IMPRESSION: Thoracic spine: 3 views of the thoracic spine are obtained for interpretation.Evaluation of the upper thoracic spine is limited due to overlying soft tissues. Vertebral body heights are maintained. Diffuse idiopathic skeletal hyperostosis. Partially imaged left ureteral stent catheter. Lumbar spine: 3 views of the lumbar spine are obtained for interpretation. Posterior spinal instrumentation and fixation of L4-L5 with interbody fusion. Degenerative disc disease of the spine. The vertebral body heights are maintained. Partially imaged left ureteral stent. Dictated by: Geovanna Cárdenas MD, MPH The radiology attending physician has personally reviewed this study, and had reviewed and/or edited this written report and agrees with it. Electronically signed by: Kendrick House M.D. CT Cervical Thoracic Lumbar Spine WO Contrast Result Date: 11/08/2023 1. Degenerative changes of the cervical and thoracic spine with no acute traumatic injuries identified. 2. Postsurgical changes of L4-L5 discectomy, interbody and posterior fusion with bone grafting.Gas in the soft tissues with adjacent confluent area of soft tissue attenuation can be seen in the setting of epidural abscess. Recommend correlation with same day same-day MR report. Dictated by: Hernán Cárdenas M.D. Assessment /Plan Principal Problem: Paralysis of both lower limbs (CMS/HCC) ([facility]) Plan of Care: NEURO: #Acute on chronic pain - Holding home Ketorolac 10 mg q6hr PRN - Continue home Gabapentin 300 mg TID - Scheduled Acetaminophen 1,000 mg q6hr - Continue home Cyclobenzaprine 5 mg TID PRN - PRN Oxycodone 5 mg q4hr, PRN Hydromorphone 0.25 q1hr - Pain goal <4/10, patient appears comfortable in hospital bed, will frequently reassess #Cauda equina, POA #Epidural hematoma T5-L5, POA, likely 2/2 anticoagulation - 10/23/23 L4-L5 PSF and decompression c/b seizure/code in PACU. Found to have small bilateral SDH,bilateral PE. Discharged 10/30/23 on therapeutic Lovenox. - 11/07/23 Patient presented to OSH with sudden onset BLE numbness/paralysis - 11/08/23 MRI spine with longitudinally extending dorsal epidural and subdural collection T5-T6 through L5-S1 causing severe canal stenosis and cauda equina compression. - 11/08/23 Laminectomy and thoracic decompression T5-L5, dural repair - Holding anticoagulation x2 weeks (per Heme), hold DVT ppx, MAP >80 x24 hours, TLSO brace when OOB, Dexamethasone 4 mg q6hr x7 days (end 11/15), q1hr Neuro checks, Vancomycin and Cefazolin while drains in place, per ortho spine - Drains x2 (deep) to gravity, continue to monitor output - Wound vac in place, continue to monitor output, plan to take down 11/15 - Ortho-Spine primary #Bilateral subdural hematomas, subacute - 10/23/23 CT head with bilateral subdural hematomas along the cerebral convexities, likely subacute. 10/28/23 CT head with no acute changes - Continue home Levetiracetam 1,000 mg po BID CV: #HTN, chronic - holding home Diltiazem XR 240 mg, Irbesartan 300 mg - PRN Hydralazine 10 mg q4hr for SBP >180 - MAP goal >80 x24 hr, per ortho spine - TTE (10/24/23): Mild-moderate RV cavity enlargement with Terrell sign. Overall, normal RV function. LV cavity size normal with normal systolic function. LVEF70%. Grade I diastolic function with normal mean LA pressure. PULM: # Acute respiratory insufficiency - Currently 4 L NC, wean as able - Pulm hygiene, SpO2 goal >92%, IS, PT/OT #Bilateral pulmonary embolism, subacute, POA - 10/23/23 CT PE with acute pulmonary emboli involving the distal right and left main pulmonary arteries extending into all bilateral lobar and multiple bilateral segmental pulmonary arteries. - 10/30/23 discharged home on therapeutic Lovenox 80 mg subq q12hr, last dose 11/07 - 11/08/23 LED with no evidence of acute deep vein thrombosis - IR consult for IVC filter placement, per ortho spine --> 11/09 Plan for IVC filter - Hematology following, recommend no anticoagulation x2 weeks - CT PE pending completion - LED (11/08): Negative for acute DVTs GI: - Diet: Clear liquid diet --> NPO at 2400 - Bowel regimen: Colace, senna BID #GERD, chronic - Holding home Omeprazole - Pantoprazole 40 mg po daily # Nausea/vomiting - Zofran & Compazine PRN #Hypomagnesemia - Replete per protocol #Vitamin D deficiency, chronic - Continue home cholecalciferol ENDO: #DM2, chronic # Hyperglycemia, likely 2/2 steroids - Holding home Mounjaro - HDSSI - D5LR 10 ml/hr at 2400 RENAL: - BUN/Cr: 15/0.82 - Harris, strict I/O - Renal dose meds, avoid nephrotoxic agents, f/u BMP #h/o Ureteral stone - 10/14/23 Perc nephrostomy (IR) - 10/18/23 Lithotripsy, removal of stones x2, removal of nephrostomy tube, left ureteral stent placed - Strict I&O #h/o Prostate cancer s/p prostatectomy (2010), POA - Continue home Tamsulosin 0.8 mg HEME: # ABLA - H&H: 9.2/27.4 - PLT: 255 - No s/s of bleeding, will continue to monitor closely, f/u CBC - DVT ppx: SCDs, holding chemical ppx ID: # Leukocytosis, likely r/t recent surgical procedure - WBC: 10.4 - Afebrile - Continue antibiotics while drains in place - Antibiotics: 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 Brown. Vicki Rehman NP Critical Care Performed by: Vicki Rehman NP Authorized by: Vicki Rehman NP CRITICAL CARE: Team: SICU BLUE Shift: AM Level of Billing: Critical Care My time spent with this patient was 120 minutes: Critical Provider Statement: I have seen and examined the patient on this day of service. I have reviewed and confirmed the history, physical exam, laboratory and radiologic data as documented in thesigned ICU note. I have reviewed and discussed my treatment plan with the ICU team and other medical/leadership development consultant staff, making frequent assessments and decisions regarding this patient's complex medical care. Critical Care time was exclusive of time spent performing separately billed procedures, treating other patients, and teaching. This time was in addition to and separate from critical care provided by other practitioners in my group on this day of service. Critical Care was necessary to treat or prevent imminent or life-threatening deterioration of the following conditions: I spent time reviewing and interpreting data from bedside monitors, laboratory results, and imaging, I spent time discussing the management of this critically ill patient with consultants and the medical staff and I spent time documenting in the medical record Cosigned by Silver Brown MD at 11/08/2023 5:59 PM ELEC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 documented in this encounter Procedure Notes * Mckay Castellanos RN - 11/11/2023 5:24 PM CST Vascular Access Nurse: Procedure Note Summary of treatment provided to patient today is as follows : . Bedside Procedure Time out/Checklist (last 4 hours) Pre-Op Checklist Row Name 11/11/23 1600 Patient Preparation Temp 36.7 ??C (98 ??F) -SHMUEL User Jones (r) = Recorded By, (t) = Taken By, (c) = Cosigned By Initials Name Melissa Hutton pinion and wheel truer Access Documentation (last 4 hours) [facility] Additional Procedures Row Name 11/11/23 1722 Procedures Line Type Peripheral -MF Time in 1705 -MF Time out 1725 -MF Time Calculation (min) 20 min -MF Vascular Access Procedures Difficult IV start -MF Patient Response Tolerated (no change in status) -MF [REMOVED] Peripheral IV 11/08/23 16 G Left Wrist IV Properties Placement Date: 11/08/23 -KM Placement Time: 0406 -KM, created via procedure documentation Size (Gauge): 16 G -KM Location Orientation: Left -KM Location: Wrist -KM Site Prep: Alcohol;Chlorhexidine -KM Insertion attempts: 1 - KM Removal Date: 11/11/23 -KR Removal Time: 1400 -KR RemovalReason : Infiltrated -KR Peripheral IV 11/08/23 20 G Left Forearm IV Properties Placement Date: 11/08/23 -MT Size (Gauge): 20 G -MT Location Orientation: Left -MT Location: Forearm -MT Inserted by: Johnie HAQ Insertion attempts: 1 -MT Patient Tolerance: Tolerated well -MT [REMOVED] Peripheral IV 11/09/23 20 G Anterior;Distal;Left;Upper Arm IV Properties Placement Date: 11/09/23 -ZD Placement Time: 1144 -ZD IV Change Due: 11/16/23 -ZD Type: Angiocath -ZD Size (Gauge): 20 G -ZD Location Orientation: Anterior;Distal;Left;Upper -ZD Location: Arm -ZD Site Prep: Chlorhexidine -ZD Local Anesthetic: None -ZD Technique: Anatomical landmarks - ZD Inserted by: Lokesh Gaines RN -ZD Insertion attempts: 1 -ZD Patient Tolerance: Tolerated well -ZD Removal Date: 11/11/23 -KR Removal Time: 1400 -KR Removal Reason : Infiltrated -KR Peripheral IV 11/11/23 22 G Left Hand IV Properties Placement Date: 11/11/23 -MF Placement Time: 1723 -MF Type: Angiocath -MF Size (Gauge): 22 G -MF Location Orientation: Left -MF Location: Hand -MF Site Prep: Chlorhexidine -MF Technique: Anatomical landmarks -MF Inserted by: Lito Castellanos RN -MF Insertion attempts: 1 -MF Patient Tolerance: T olerated well -MF Site Assessment Clean and dry -MF IV Line Status Single Blood return noted;Flushes easily;Saline locked -MF Dressing Type Transparent -MF Dressing Status New;Clean, dry, intact;Occlusive -MF Dressing Change Due 11/18/23 -MF User Jones (r) = Recorded By, (t) = Taken By, (c) = Cosigned By Initials Name RajivLucio Brandt RN KR Rodenborn, Kathleen M., RN KM Maryan, Kyle Anthony, MD Mckay Castellanos RN MT Trimble, Morgan Elizabeth, RN Plan Follow up Mckay Castellanos RN 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 documented in this encounter Consult Notes * Tyrone Martínez MD - 11/13/2023 12:47 AM CSTAssociated Order(s): CONSULT TO PM&R PHYSICIAN Patient Name: HIRA EVANS Medical Record Number (MRN): [id number] Date of (): 1950 Encounter Date: 11/07/2023 Date of Service: 11/13/23 Physical Medicine and Rehabilitation Initial Consultation Chief Complaint Epidural/subdural hematoma s/p T5-L5 laminectomy and hematoma evacuation Patient was seen with and family friend, who also provided history. They were counseled on post-acute rehabilitative management options in addition to the patient. History of Present Illness: This is an 73 y.o. male with PMH of recent L4-5 PSF c/b post-op cardiacarrest, rib fractures from CPR, and b/l PE on therapeutic anticoagulation, GERD, CKD, b/l total knee replacements, melanoma, and prostate CA s/p prostatectomy, who was admitted to [facility] on 11/07/2023 forsudden onset BLE numbness and inability to ambulate consistent with cauda equina syndrome, who was found to have dorsal epidural and subdural hematoma from T5-S1. Patient underwent T5-L5 laminectomy and hematoma evacuation with Dr. Vu. His course was complicated by ABLA, s/p 4u pRBC. Hematology recommended holding off anticoagulation for 2 weeks. This physiatric consultation has been requested to advise on spinal cord injury and disposition. The patient has undergone therapy evaluation and found to need inpatient rehabilitation. Subjective: The patient reports his medications adequately treat his pain but he tries to avoid taking too muchoxycodone. He was encouraged to make sure his pain is treated well enough that he is not restricting his movement; he was in agreement. No Known Allergies Past Medical History: Diagnosis Date Allergic rhinitis Arthritis OA Cancer ([facility]) (HCC) prostate and melonomia Gastric reflux GERD (gastroesophageal reflux disease) History of melanoma Hypertension Kidney stone Personal history of prostate cancer Pneumonia Seasonal allergies Past Surgical History: Procedure Laterality Date FL UPPER GI AIR CONTRAST W KUB Left 09/21/2023 INSERT VENA CAVA FILTER N/A 11/09/2023 JOINT REPLACEMENT Right 2013 right knee replacement MELANOMA RESECTION Right 2006 [...] ADLs Recommendation/Plan PT Recommendation/Plan: Inpatient Rehab Facility ([facility]) Patient at high risk for: Falls; Readmission Recommend Inpatient Rehab/Acute Rehab due to: Ability to actively participate in intensive therapy 3 hours/day, 5 days/week or 900 minutes per week; Highly motivated to participate in therapy; Impaired ability to complete functional mobility; Requires greater than 25% physical assistance with most mobility tasks; Requires multiple therapy disciplines to address functional deficits; Patient and caregiver require specialized skilled training due to new level of function/diagnosis; Requires skilled therapy interventions to address neurological deficits PT Frequency during current admission: 5-7x/wk Treatment/Interventions during current admission: Balance Training; Bed mobility; Functional activity; Functional transfer training; Neuromuscular re- education; Positioning; Parent/caregiver trainingand education; Orthotic management; Positioning equipment; Range of motion; Strengthening; Therapeutic activity; Therapeutic exercise; Transfer training Progress during current admission: Progressing toward goals PT - Next Appointment: 11/13/23 PT Evaluation Complete: Yes Review of Systems 10 point ROS negative except as above per HPI. Vital Signs Vitals: 11/12/23 2000 11/12/23 2100 11/12/23 2200 11/12/23 2300 BP: 156/88 135/81 124/73 134/73 BP Location: Right arm Patient Position: Lying Pulse: 66 77 60 64 Resp: 20 22 16 17 Temp: 37 ??C (98.6 ??F) TempSrc: Oral SpO2: 100% 98% 97% 99% Weight: Height: Physical Exam General: NAD, well-developed well-nourished. Eyes: EOMI, sclera anicteric ENT: NCAT, Mucous membranes moist Lungs: Normal effort. Cardiac: EWWP Abdomen: Soft, nondistended. No organomegaly. Extremities:No edema. Psychiatric: Normal mood Dermatologic: No evident skin [...] elbow flexion, elbow extension, wrist extension, and inventory control coordinator LUE: 5/5 with shoulder abduction, elbow flexion, elbow extension, wrist extension, and inventory control coordinator RLE:1/5 with hip flexion, 0/5 knee extension, 0/5 dorsiflexion, 3/5 EHL, 2/5 plantarflexion LLE: 0/5 with hip flexion, 2/5 knee extension, 0/5 dorsiflexion, 3/5 EHL, 2/5 plantarflexion Sensation: Sensation is decreased in BLE Assessment and Plan This is an 73 y.o. male with PMH of recent L4-5 PSF c/b post-op cardiac arrest, rib fractures from CPR, and b/l PE on therapeutic anticoagulation, GERD, CKD, b/l total knee replacements, melanoma, and prostate CA s/p prostatectomy, who was admitted to [facility] on 11/07/2023 for sudden onset [...] evaluated by and continuing to work with PT/OT/TENSIONING MACHINE OPERATOR for assessment of current function and discharge [...] HELD # REHAB DISPOSITION RECOMMENDATIONS: We recommend inpatient spinal cord injury rehabilitation. To be an appropriate rehabilitation candidate, the [...] Tyrone Martínez MD PM&R PGY-3 Cosigned by Yarely Ortiz MD at 11/15/2023 9:55 PM ELEC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 Associated attestation - Yarely Ortiz MD - 11/15/2023 9:55 PM ELEC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 ATTENDING DOCUMENTATION I have seen and examined the patient on 11/13/23. I have reviewed the findings and plan of care forthis patient. I have discussed the case in detail with the PM&R consult resident, Dr. Martínez. I agree with the rehab treatment recommendations and documentation provided above. Thanks for allowing us to be part of this patient's care. I personally spent minutes on this patient's case: [id number] time consisting of patient interview and evaluation/examination, review of medical history and current clinical data, discussion with allied health professionals, patient and his counseling regarding rehab options, and documentation. Yarely Ortiz MD, FAAPMR Professor, Neurorehabilitation Physical Medicine & Rehabilitation, Consult Attending Department of Orthopaedic Surgery * Gabriel Puente MD - 11/12/2023 10:25 AM CSTAssociated Order(s): IP CONSULT TO PAIN MANAGEMENT ACUTE PAIN SERVICE CONSULT NOTE Hira Evans, [id number] Reason for Consult: Intravenous Lidocaine Infusion for pain Requesting Provider: Horace Chief Complaint: Back and Chest pain Subjective Hira Evans is a 73 y.o. year old male referred by Dr. Vu for consultation regarding his back and chest pain. He has a history of HTN, lumbar radiculopathy s/p L4-5 decompression 10/23/23, prostate cancer who presented to [facility] 11/08/23 with acute cauda equina syndrome now s/p emergency L4-5 laminectomy with hematoma evacuation with Ortho Spine. During previous admission he had a code event with CPR. The Pain Service is consulted for acute post-laminectomy pain and chest pain 2/2 CPR. The pain is described as occasional and dull. There is no radiation of symptoms. His pain ranges in severity from 1-6/10. Pain right now is 5/10 on the numeric pain scale. Pain is worse during no specific time of the day. Pain is better during no specific time of the day. Provocative factors include walking, sitting, and t urning and use of his brace. Alleviating factors include rest and medications. He reports when he is resting in bed his pain is about 1/10 but when he has to do activity it increases. He received oxycodone 10 once which was effective for his pain and did not produce side effects. He does not want to use more opioid pain medications due to a concern for addiction. He denies a history of SHARIFA, family history of SHARIFA, or inability to perform duties of family/work due to substance use. He was previously on a lidocaine infusion this admission but it was discontinued prior to coming to the unit from the ICU. He denies a history of seizures or cardiac arrhythmia. Verbal Pain Score (0-10): Pain Score: 5 - Moderate pain Pain Location: Back (Lumbar) Pain Descriptors: Aching, Shooting, Sore Review of Systems All other systems reviewed and are negative. [] Nausea/emesis [] Pruritus [] Sedation [] NGT [] Flatus [] Bowel movement [] OOBTC [] Ambulation [] New weakness [] Tinnitus [] Oral metallic taste [] Perioral numbness [x] Patient denies any symptoms of metallic taste, tinnitus, or perioral numbness Past Medical History: Diagnosis Date Allergic rhinitis Arthritis OA Cancer (CMS/HCC) (HCC) prostate and melonomia Gastric reflux GERD (gastroesophageal [...] ARTHROPLASTY Right 09/30/2019 VASECTOMY 30 years ago Medications Prior to Admission Medication Sig Dispense Refill Last Dose acyclovir (ZOVIRAX) 400 mg tablet Take 1 tablet (400 mg total) by mouth 2 (two) times a day 3 cephalexin (KEFLEX) 500 mg capsule Take 1 capsule (500 mg total) by mouth daily as needed (30 minutes prior to dental appt) When pt has procedures gets pre antibiotic r/t history knee replacements cetirizine (ZyrTEC) 10 mg tablet Take 1 tablet (10 mg total) by mouth import coordinator before breakfast cholecalciferol (VITAMIN D-3) 5,000 unit capsule Take 1 capsule (5,000 Units total) by mouth every morning coenzyme Q10 100 mg capsule Take 1 capsule (100 mg total) by mouth import coordinator before breakfast cyclobenzaprine (FLEXERIL) 5 mg tablet Take 1 tablet (5 mg total) by mouth 3 (three) times a day asneeded for muscle spasms 90 tablet 0 DILT-XR 240 mg 24 hr capsule Take 1 capsule (240 mg total) by mouth 2 (two) times a day 0 enoxaparin (LOVENOX) 80 mg/0.8 mL syringe Inject 0.8 mL (80 mg total) under the skin every 12 (twelve) hours 48 mL 2 fish,bora,flax oils-om3,6,9no1 400-400-400 mg capsule Take 1 tablet by mouth import coordinator before breakfast gabapentin (NEURONTIN) 300 mg capsule Take 1 capsule (300 mg total) by mouth every 8 (eight) hours 90 capsule 0 irbesartan (AVAPRO) 300 mg tablet Take 1 tablet (300 mg total) by mouth every morning ketorolac (TORADOL) 10 mg tablet Take 1 tablet (10 mg total) by mouth every 6 (six) hours as neededfor pain 20 tablet 0 levETIRAcetam (KEPPRA) 1,000 mg tablet Take 1 tablet (1,000 mg total) by mouth 2 (two) times a day 60 tablet 1 Mounjaro 10 mg/0.5 mL pen injector Inject 10 mg under the skin once a week Sunday omeprazole (PriLOSEC) 20 mg capsule Take 1 capsule (20 mg total) by mouth every morning oxyCODONE (ROXICODONE) 5 mg immediate release tablet Take 1 tablet (5 mg total) by mouth every 4 (four) hours as needed for pain 30 tablet 0 senna-docusate (PERICOLACE) 8.6-50 mg Take 1 tablet by mouth 2 (two) times a day for 15 days 30 tablet 0 tamsulosin (FLOMAX) 0.4 mg extended release capsule Take 2 capsules (0.8 mg total) by mouth daily with dinner 60 capsule 0 No Known Allergies Social History Tobacco Use [...] by PERLA Conv) Anesthesia problems Neg Hx None LIDOCAINE LEVEL: Recent Labs Lab Units 11/10/23 2313 11/09/23 2330 11/09/23 1143 LIDOCAINE LVL mcg/mL 1.9 2.7 3.4 Scheduled Medications: acetaminophen, 1,000 mg, oral, Q6H acyclovir, 400 mg, oral, BID bisacodyL, 10 mg, rectal, Daily ceFAZolin, 2,000 mg, intravenous, Q8H CAMMY cetirizine, 10 mg, oral, Daily cholecalciferol, 5,000 Units, oral, Daily dexAMETHasone, 4 mg, intravenous, Q6H CAMMY gabapentin, 300 mg, oral, TID insulin lispro, 0-10 Units, subcutaneous, TID with meals insulin lispro, 0-5 Units, subcutaneous, Nightly levETIRAcetam, 1,000 mg, oral, BID lidocaine PF, 10 mL, infiltration, Once pantoprazole DR, 40 mg, oral, Daily ramelteon, 8 mg, oral, Nightly senna-docusate, 2 tablet, oral, BID sodium chloride 0.9%, 0.5-20 mL, intra-catheter, Q8H CAMMY tamsulosin, 0.8 mg, oral, Daily with dinner vancomycin, 1,000 mg, intravenous, Q12H Continuous Medications: PRN Medications: cyclobenzaprine dextrose OR dextrose glucagon hydrALAZINE ondansetron prochlorperazine sodium chloride 0.9% @[facility]@ OBJECTIVE Vitals: 24hr Min/Max: Temp Min: 36.4 ??C (97.6 ??F) Max: 36.7 ??C (98.1 ??F) Pulse Min: 58 Max: 77 BP Min: 117/64 Max: 164/83 Resp Min: 15 Max: 22 SpO2 Min: 97 % Max: 100 % Most Recent : Vitals: 11/12/23 0400 11/12/23 0600 11/12/23 0800 11/12/23 0948 BP: 142/75 156/73 141/78 138/84 BP Location: Right arm Patient Position: Lying Pulse: 71 58 69 77 Resp: 18 15 15 22 Temp: 36.4 ??C (97.6 ??F) TempSrc: SpO2: 100% 97% 100% 100% Weight: Height: I/O last 2 completed shifts: In: 706.7 [P.O.:400; Blood:306.7] Out: 1838 [Urine:1800; Drains:38] I/O this shift: In: 750 [P.O.:750] Out: 396 [Urine:375; Drains:21] PHYSICAL EXAM GENERAL: Appears stated age. Sitting comfortably in chair with brace HEENT: Normocephalic, EOMI, nares patent, trachea midline. CARDIOVASCULAR: Well-perfused extremities. RESPIRATORY: Non-labored breathing. ABDOMINAL: Normal external appearance. PYSCH: Pleasant, normal affect, euthymic mood. SKIN: Overall warm and dry. NEURO/MSK: Alert & oriented. Cognition intact. Lab/Radiology/Diagnostic Review: Recent Labs Lab Units 11/11/23 2135 WBC K/cumm 9.1 HEMOGLOBIN g/dL 8.8* HEMATOCRIT % 25.8* PLATELETS K/cumm 187 Recent Labs Lab Units 11/12/23 0759 11/11/23 2138 11/11/23 2135 SODIUM mmol/L -- -- 135 POTASSIUM PLASMA mmol/L -- -- 4.6 CHLORIDE mmol/L -- -- 103 CO2 mmol/L -- -- 24 ANIONGAP mmol/L -- -- 8 GLUCOSE mg/dL -- -- 159 POC GLUCOSE MONITOR mg/dL 128 < > -- BUN SERUM mg/dL -- -- 22 CREATININE mg/dL -- -- 0.81 CALCIUM mg/dL -- -- 8.2* < > = values in this interval not displayed. Recent Labs Lab Units 11/08/23 1151 11/07/23 2301 APTT sec -- 32 INR 1.12 1.11 No results found. Assessment/Plan Hira Evans is a 73 y.o. year old male presenting with acute post laminectomy pain and ribfracture pain . Impression: Pain is well controlled. Plan 1. Intervention: No intervention indicated at this current time. 2. Medications: - Continue oxycodone 10mg q4h PRN, encourage use for therapy and pain generating activity - Schedule Flexeril 5mg TID - Increase gabapentin to 600mg TID - Titrate medications to effect and minimizing sedation; if patient experiences increased sedation with flexeril/gabapentin may reduce to home dose. We will sign off, please call with questions. Thank you for allowing us to participate in the care of this patient Gabriel Puente MD Acute Pain Service Department of Anesthesiology [facility], [facility] [employer] If you have questions or concerns, please contact the [facility] buhr mill operator to page the Pain Management service. After hours, this is not an in-house pager, please reserve non-urgent calls from [phone]. We are happy to address emergent calls 28/05. 11/12/23 10:25 AM For patients or family members viewing this note through [employer] programs: This note was written as a communication tool between healthcare providers and may contain technical language, terminology and abbreviations that is difficult to interpret without advanced medical training. If you have questions or concerns regarding what is written in this note, please request to speak with the primary medical team taking care of you or your family member or call your PCP for clarification. Please do not call the cell or pager numbers listed in this note, as the provider they are associated with may no longer be involved in your care. Cosigned by Salome Akbar MD PhD at 11/13/2023 10:35 AM ELEC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 Associated attestation - Salome Akbar MD PhD - 11/13/2023 10:35 AM ELEC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 I have seen and examined the patient on 11/12/2023. I agree with the findings and plan of care as documented in the resident's/fellow's note. Discussed appropriate oxycodone use and his low risk of addiction. He agrees to use it to facilitate therapy. * Damaris Maxwell, ABBIE - 11/09/2023 10:29 AM CSTAssociated Order(s): IP CONSULT TO SOCIAL WORK Social work received an order for need for complex higher level or care or halfway planning for care . Patient is not high risk for readmission and has only 2 IP in last 12 months. Predictive Model Details 20% (Mod Risk) Factor Value Calculated 11/09/2023 10:03 23% Number of active inpatient medication orders 48 Risk of Unplanned Readmission Model 14% Active NSAID inpatient medication order present 8% Number of ED visits in last six months 2 7% Diagnosis of cancer present 7% ECG/EKG order present in last 6 months 5% Encounter of ten days or longer in last year present 5% Restraint order present in last 6 months 5% Imaging order present in last 6 months 4% Latest hemoglobin low (11.0 g/dL) 4% Phosphorous result present 4% Age 73 3% Number of hospitalizations in last year 1 3% Active anticoagulant inpatient medication order present 3% Active corticosteroid inpatient medication order present 2% Charlson Comorbidity Index 2 1% Future appointment scheduled 1% Current length of stay 1.456 days 1% Active ulcer inpatient medication order present If needed, case management to follow for discharge planning needs and if patient meets criteria, case management to assist with medications at discharge. There are no anticipated social work needs at this time. GEN Munoz, HR RECEPTIONIST 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 * Annette Calero MD - 11/08/2023 12:58 PM CSTAssociated Order(s): IP CONSULT TO HEMATOLOGY Images from the original note were not included. Hematology Consult Note Visit date: 11/08/2023 Patient: Hira Evans Assessment and Plan: Hira Evans is a 73 y.o. male [...] on Lovenox before representing on 11/07/2023 with sudden loss of bilateral lower extremity sensations and paraplegia found to have cauda equina caused by epidural and subdural hematoma extending from T5-6 through L5-S1. Hematology is consulted for anticoagulation management. Recs #Hx of Bilateral PE, provoked #Dorsal epidural and subdural hematoma T5-T6 through L5-S1 Diagnosed with PE based on CTA 10/23: Acute pulmonary emboli involving the distal right and left main pulmonary arteries extending into all bilateral lobar and multiple bilateral segmental pulmonary arteries. No CT evidence of right heart strain. CT Head at the time (10/23/2023) also showed small bilateral frontal subacute SDH bilaterally. NSGYwas consulted and recommended repeat CTH which was done on 10/28/2023 He was started on heparin gtt 10/24-10/27 that was transitioned to Lovenox 80mg BID after stable repeat CT head. He was discharged 10/30/2023 and represented 11/07/2023 with sudden onset paraplegia and loss of sensations BLE. - Agree with checking BLE Duplex to look for lower extremity DVT - Given inability to anticoagulate in the setting of major bleeding, recent orthopedic surgeries, if there is lower extremity thrombus present then agree with IVC filter placement. If there is no lower extremity thrombus on Duplex, then risks of thrombosis with placement of IVC filter needs to be balanced with his anticipated immobilization and future risk of developing new lower extremity thrombus. - Would recommend no anticoagulation for 2 weeks, plan to resume anticoagulation needs to be coordinated with his spine surgery team specifically regarding risks of bleeding and ideally would be donewith heparin gtt in a monitored setting. Thank you for this consult. We will sign off. Please do not hesitate to contact us with any questions or concerns. This patient was staffed with my attending physician Dr. Mcgrath, who agrees with the abovementioned assessment and plan. Annette Calero MD Hematology & Oncology Fellow [facility] [employer] For questions about this consult, please contact: Rae Weller, inpatient Hematology nurse practicioner [phone] Sunday -- Sunday, 8 AM to 5 PM (except holidays) Hematology consult pager: [phone] Reason for Consult: Recent bilateral PE c/b epidural hematoma. Consult for risk stratification of anticoagulation. Requesting Provider: Marcial Vu Fo* HPI: Hira Evans is a 73 y.o. male with distant hx of prostate CA (s/p prostatectomy 2008), melanoma (s/p resection 2005), HTN, GERD, CKD, with recent admission for complicated UTI, s/p PCN tube placement (10/13/23) exchanged for stent (10/18/23), after which he underwent posterior spinal fusionL4-L5 for severe spinal stenosis 2/2 herniated disc on 10/23/2023. Postoperatively he suffered fromcardiac arrest 10/23/2023 with ?seizure activity and found to have bilateral PE involving left mainpulmonary artery and distal R main, as well as small bilateral subacute subdural hematomas. He was started on heparin gtt without bolus for his PE and NSGY was consulted given CT Head at the time (10/23/2023) also showed small bilateral frontal subacute SDH bilaterally. NSGY recommended repeat CTH which was done on 10/28/2023 and showed stability in size of his SDH. He was discharged on Lovenox before representing on 11/07/2023 with sudden loss of bilateral lower extremity sensations and paraplegia found to have cauda equina syndrome caused by dorsal epidural and subdural hematoma extending from T5-6 through L5-S1. When seen at bedside, he reports sensation to light touch with BLE and was able to wiggle his righttoe. He reports feeling overwhelmed with recent procedures. Past Medical History: Patient Active Problem List Diagnosis Date Noted Paralysis of both lower limbs ([facility]) ([facility]) 11/07/2023 Pulmonary embolism ([facility]) 10/26/2023 S/P spinal fusion 10/23/2023 Cardiac arrest ([facility]) 10/23/2023 Left perinephric collection, 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 10/15/2023 Ureteral colic 10/13/2023 UTI (urinary tract infection) 10/13/2023 Hydronephrosis with urinary obstruction due to renal calculus 10/12/2023 Lumbar radiculopathy 10/08/2023 Gross hematuria 10/18/2022 Bladder neck obstruction 10/17/2022 Lesion of urinary bladder 10/17/2022 Prostate cancer ([facility]) 10/17/2022 HTN (hypertension) 10/10/2021 Risk factors for obstructive sleep apnea 10/10/2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 Home Medications: Prior to Admission medications Medication Sig Start Date End Date Taking? Authorizing Provider acyclovir (ZOVIRAX) 400 mg tablet Take 1 tablet (400 mg total) by mouth 2 (two) times a day 06/08/19 Fidelia Perdue MD cephalexin (KEFLEX) 500 mg capsule Take 1 capsule (500 mg total) by mouth daily as needed (30 minutes prior to dental appt) When pt has procedures gets pre antibiotic r/t history knee replacements 10/09/22 Fidelia Perdue MD cetirizine (ZyrTEC) 10 mg tablet Take 1 tablet (10 mg total) by mouth import coordinator before breakfast Fidelia Perdue MD cholecalciferol (VITAMIN D-3) 5,000 unit capsule Take 1 capsule (5,000 Units total) by mouth every morning Fidelia Perdue MD coenzyme Q10 100 mg capsule Take 1 capsule (100 mg total) by mouth import coordinator before breakfast Fidelia Perdue MD cyclobenzaprine (FLEXERIL) 5 mg tablet Take 1 tablet (5 mg total) by mouth 3 (three) times a day asneeded for muscle spasms 10/30/23 Rafael Rodriguez NP DILT-XR 240 mg 24 hr capsule Take 1 capsule (240 mg total) by mouth 2 (two) times a day 05/12/19 Fidelia Perdue MD enoxaparin (LOVENOX) 80 mg/0.8 mL syringe Inject 0.8 mL (80 mg total) under the skin every 12 (twelve) hours 10/30/23 01/28/24 Rafael Rodriguez NP fish,bora,flax oils-om3,6,9no1 400-400-400 mg capsule Take 1 tablet by mouth import coordinator before breakfast Fidelia Perdue MD gabapentin (NEURONTIN) 300 mg capsule Take 1 capsule (300 mg total) by mouth every 8 (eight) hours 10/30/23 11/29/23 Rafael Rodriguez, CARLA irbesartan (AVAPRO) 300 mg tablet Take 1 tablet (300 mg total) by mouth every morning 08/10/21 Fidelia Perdue MD ketorolac (TORADOL) 10 mg tablet Take 1 tablet (10 mg total) by mouth every 6 (six) hours as neededfor pain 11/06/23 Marcial Vu MD levETIRAcetam (KEPPRA) 1,000 mg tablet Take 1 tablet (1,000 mg total) by mouth 2 (two) times a day 10/30/23 12/29/23 Rafael Rodriguez NP Mounjaro 10 mg/0.5 mL pen injector Inject 10 mg under the skin once a week Sunday04/05/23 Fidelia Perdue MD omeprazole (PriLOSEC) 20 mg capsule Take 1 capsule (20 mg total) by mouth every morning Fidelia Perdue MD oxyCODONE (ROXICODONE) 5 mg immediate release tablet Take 1 tablet (5 mg total) by mouth every 4 (four) hours as needed for pain 10/30/23 Nasir Manzanares MD senna-docusate (PERICOLACE) 8.6-50 mg Take 1 tablet by mouth 2 (two) times a day for 15 days 10/30/23 11/14/23 Rafael Rodriguez NP tamsulosin (FLOMAX) 0.4 mg extended release capsule Take 2 capsules (0.8 mg total) by mouth daily with dinner 10/30/23 11/29/23 Rafael Rodriguez NP Allergies Allergies as of 11/07/2023 (No Known Allergies) Social History Social History [...] by PERLA Conv) Anesthesia problems Neg Hx Physical Exam: Vitals: 24hr Min/Max: Temp Min: 36.4 ??C (97.6 ??F) Max: 37 ??C (98.6 ??F) Pulse Min: 81 Max: 88 BP Min: 124/84 Max: 141/82 Resp Min: 16 Max: 21 SpO2 Min: 94 % Max: 100 % Most Recent: Vitals: 11/08/23 1200 BP: Pulse: 84 Resp: 16 Temp: 37 ??C (98.6 ??F) SpO2: 98% Physical Exam Constitutional: Tired-appearing male in NAD. HEENT: MMM. Scleral anicterus Neck: Supple, ROM nl. CV: Symmetric chest rise Pulm: Effort nl. Ext: WWP Skin: No rash Neuro: Wiggles right toe, sensation intact to light touch bilateral feet Psych: Mood nl. Cooperative. Lab/Radiology/Diagnostic Review: Recent Results (from the past 24 hour(s)) CBC without differential Collection Time: 11/07/23 11:01 PM Result Value Ref Range WBC 12.0 (H) 3.8 - 9.9 K/cumm Hgb 9.5 (L) 13.0 - 17.5 g/dL Hct 29.0 (L) 38.9 - 50.3 % Plt 343 150 - 400 K/cumm MPV 10.9 9.1 - 12.3 fL RBC 3.08 (L) 4.30 - 5.80 M/cumm MCV 94.2 81.3 - 96.4 fL MCH 30.8 27.1 - 33.3 pg MCHC 32.8 32.3 - 35.7 g/dL RDW CV 13.7 11.1 - 14.9 % RDW SD 46.8 35.7 - 48.1 fL NRBC abs 0.00 0.00 - 0.01 K/cumm Basic metabolic panel Collection Time: 11/07/23 11:01 PM Result Value Ref Range Sodium 141 135 - 145 mmol/L Potassium, pl 4.2 3.3 - 4.9 mmol/L Chloride 104 97 - 110 mmol/L CO2 28 22 - 32 mmol/L Anion gap 9 2 - 15 mmol/L BUN 14 6 - 25 mg/dL Creatinine 0.98 0.80 - 1.30 mg/dL Glucose 142 70 - 199 mg/dL Calcium 8.6 8.5 - 10.3 mg/dL Protime-INR Collection Time: 11/07/23 11:01 PM Result Value Ref Range PT 12.6 10.3 - 13.7 sec INR 1.11 0.90 - 1.20 aPTT Collection Time: 11/07/23 11:01 PM Result Value Ref Range aPTT 32 28 - 38 sec Type and screen Collection Time: 11/07/23 11:01 PM Result Value Ref Range Jigna, indirect Negative ABO Rh O Positive eGFR Collection Time: 11/07/23 11:01 PM Result Value Ref Range eGFR 82 >=60 mL/min/1.73 m2 Prepare RBC: 4 Units Collection Time: 11/08/23 2:28 AM Result Value Ref Range Product code O3277I84 Unit Number [id number] Product Blood Type OPOS Dispense Status ISSUED Product code Z3450H80 Unit Number [id number] Product Blood Type OPOS Dispense Status RETURNED Product code I5216P89 Unit Number [id number] Product Blood Type OPOS Dispense Status ISSUED Product code J4514E48 Unit Number [id number] Product Blood Type OPOS Dispense Status ISSUED Prepare plasma: 4 Units Collection Time: 11/08/23 2:28 AM Result Value Ref Range Product code Y8261P34 Unit Number [id number] Product Blood Type OPOS Dispense Status RETURNED Product code H1551J01 Unit Number [id number] Product Blood Type OPOS Dispense Status RETURNED Product code F6190G02 Unit Number [id number] Product Blood Type OPOS Dispense Status RETURNED Product code [id number] Unit Number [id number] Product Blood Type OPOS Dispense Status ISSUED POC Blood Gas and Chemistries, Arterial - Collection Time: 11/08/23 4:18 AM Result Value Ref Range pH, Art POC 7.45 7.35 - 7.45 pCO2, Art POC 35 35 - 45 mmHg pO2, Art POC 322 (H) 83 - 108 mmHg Na, POC 136 135 - 145 mmol/L K POC 3.5 3.3 - 4.9 mmol/L Cl, POC 108 97 - 110 mmol/L Ionized Ca, POC 4.62 4.50 - 5.10 mg/dL Glucose, POC 123 70 - 199 mg/dL Lactate, POC 0.7 0.7 - 2.2 mmol/L SO2 (mindy) arterial 99 (H) 90 - 95 % Base excess, POC 0.4 mmol/L HCO3, Art POC 24 20 - 30 mmol/L Hct, POC 26.0 (L) 41.4 - 51.6 % O2 Sat, Art POC (Calc) 100 % Total Hb, POC 8.6 (L) 13.8 - 17.2 g/dL POC Blood Gas and Chemistries, Arterial - Collection Time: 11/08/23 6:00 AM Result Value Ref Range pH, Art POC 7.39 7.35 - 7.45 pCO2, Art POC 40 35 - 45 mmHg pO2, Art POC 158 (H) 83 - 108 mmHg Na, POC 136 135 - 145 mmol/L K POC 3.7 3.3 - 4.9 mmol/L Cl, POC 109 97 - 110 mmol/L Ionized Ca, POC 4.53 4.50 - 5.10 mg/dL Glucose, POC 131 70 - 199 mg/dL Lactate, POC 0.7 0.7 - 2.2 mmol/L SO2 (mindy) arterial 100 (H) 90 - 95 % Base excess, POC -0.7 mmol/L HCO3, Art POC 24 20 - 30 mmol/L Hct, POC 29.0 (L) 41.4 - 51.6 % O2 Sat, Art POC (Calc) 99 % Total Hb, POC 9.6 (L) 13.8 - 17.2 g/dL POC Blood Gas and Chemistries, Arterial - Collection Time: 11/08/23 7:05 AM Result Value Ref Range pH, Art POC 7.42 7.35 - 7.45 pCO2, Art POC 33 (L) 35 - 45 mmHg pO2, Art POC 156 (H) 83 - 108 mmHg Na, POC 135 135 - 145 mmol/L K POC 3.8 3.3 - 4.9 mmol/L Cl, POC 109 97 - 110 mmol/L Ionized Ca, POC 4.66 4.50 - 5.10 mg/dL Glucose, POC 146 70 - 199 mg/dL Lactate, POC 0.6 (L) 0.7 - 2.2 mmol/L SO2 (mindy) arterial 99 (H) 90 - 95 % Base excess, POC -2.6 mmol/L HCO3, Art POC 21 20 - 30 mmol/L Hct, POC 29.0 (L) 41.4 - 51.6 % O2 Sat, Art POC (Calc) 99 % Total Hb, POC 9.8 (L) 13.8 - 17.2 g/dL POC Blood Gas and Chemistries, Arterial - Collection Time: 11/08/23 8:22 AM Result Value Ref Range pH, Art POC 7.38 7.35 - 7.45 pCO2, Art POC 38 35 - 45 mmHg pO2, Art POC 153 (H) 83 - 108 mmHg Na, POC 135 135 - 145 mmol/L K POC 4.5 3.3 - 4.9 mmol/L Cl, POC 109 97 - 110 mmol/L Ionized Ca, POC 5.14 (H) 4.50 - 5.10 mg/dL Glucose, POC 187 70 - 199 mg/dL Lactate, POC 0.8 0.7 - 2.2 mmol/L SO2 (mindy) arterial 99 (H) 90 - 95 % Base excess, POC -2.3 mmol/L HCO3, Art POC 22 20 - 30 mmol/L Hct, POC 32.0 (L) 41.4 - 51.6 % O2 Sat, Art POC (Calc) 99 % Total Hb, POC 10.6 (L) 13.8 - 17.2 g/dL POCT glucose Collection Time: 11/08/23 11:41 AM Result Value Ref Range Glucose, POC 173 70 - 199 mg/dL Basic metabolic panel Collection Time: 11/08/23 11:51 AM Result Value Ref Range Sodium 138 135 - 145 mmol/L Potassium, pl 4.4 3.3 - 4.9 mmol/L Chloride 108 97 - 110 mmol/L CO2 22 22 - 32 mmol/L Anion gap 8 2 - 15 mmol/L BUN 15 6 - 25 mg/dL Creatinine 0.82 0.80 - 1.30 mg/dL Glucose 181 70 - 199 mg/dL Calcium 8.0 (L) 8.5 - 10.3 mg/dL Calcium, ionized Collection Time: 11/08/23 11:51 AM Result Value Ref Range Calcium, Ionized 4.58 4.50 - 5.10 mg/dL Magnesium Collection Time: 11/08/23 11:51 AM Result Value Ref Range Magnesium 1.8 1.4 - 2.5 mg/dL Phosphorus Collection Time: 11/08/23 11:51 AM Result Value Ref Range Phosphorus, pl 4.1 2.3 - 4.5 mg/dL Protime-INR Collection Time: 11/08/23 11:51 AM Result Value Ref Range PT 12.8 10.3 - 13.7 sec INR 1.12 0.90 - 1.20 CBC without differential Collection Time: 11/08/23 11:51 AM Result Value Ref Range WBC 10.4 (H) 3.8 - 9.9 K/cumm Hgb 9.2 (L) 13.0 - 17.5 g/dL Hct 27.4 (L) 38.9 - 50.3 % Plt 255 150 - 400 K/cumm MPV 11.0 9.1 - 12.3 fL RBC 3.03 (L) 4.30 - 5.80 M/cumm MCV 90.4 81.3 - 96.4 fL MCH 30.4 27.1 - 33.3 pg MCHC 33.6 32.3 - 35.7 g/dL RDW CV 14.4 11.1 - 14.9 % RDW SD 47.6 35.7 - 48.1 fL NRBC abs 0.00 0.00 - 0.01 K/cumm eGFR Collection Time: 11/08/23 11:51 AM Result Value Ref Range eGFR >90 >=60 mL/min/1.73 m2 Additional tests: I have reviewed the laboratory results. Imaging Results: MRI Spine Total Complete WO Contrast Result Date: 11/08/2023 1. Postsurgical changes of L4-L5 discectomy, interbody and posterior fusion. 2. Longitudinally extending dorsal epidural and subdural collection from T5-T6 through L5-S1. This is favored to representhematoma and less likely an abscess. 3. Otherwise, degenerative spine disease as described above. The critical results were discussed with Dr. Dr. Arti MD at 11/07/2023 1:[address] Hastings. Dictated by: Satinder Hastings MD XR Spine Lumbar 2 or 3 Views Result Date: 11/08/2023 FINDINGS/IMPRESSION: Thoracic spine: 3 views of the thoracic spine are obtained for interpretation.Evaluation of the upper thoracic spine is limited due to overlying soft tissues. Vertebral body heights are maintained. Diffuse idiopathic skeletal hyperostosis. Partially imaged left ureteral stent catheter. Lumbar spine: 3 views of the lumbar spine are obtained for interpretation. Posterior spinal instrumentation and fixation of L4-L5 with interbody fusion. Degenerative disc disease of the spine. The vertebral body heights are maintained. Partially imaged left ureteral stent. Dictated by: Geovanna Cárdenas MD, MPH The radiology attending physician has personally reviewed this study, and had reviewed and/or edited this written report and agrees with it. Electronically signed by: Kendrick House M.D. XR Spine Thoracic 3 Vw Result Date: 11/08/2023 FINDINGS/IMPRESSION: Thoracic spine: 3 views of the thoracic spine are obtained for interpretation.Evaluation of the upper thoracic spine is limited due to overlying soft tissues. Vertebral body heights are maintained. Diffuse idiopathic skeletal hyperostosis. Partially imaged left ureteral stent catheter. Lumbar spine: 3 views of the lumbar spine are obtained for interpretation. Posterior spinal instrumentation and fixation of L4-L5 with interbody fusion. Degenerative disc disease of the spine. The vertebral body heights are maintained. Partially imaged left ureteral stent. Dictated by: Geovanna Cárdenas MD, MPH The radiology attending physician has personally reviewed this study, and had reviewed and/or edited this written report and agrees with it. Electronically signed by: Kendrick House M.D. CT Cervical Thoracic Lumbar Spine WO Contrast Result Date: 11/08/2023 1. Degenerative changes of the cervical and thoracic spine with no acute traumatic injuries identified. 2. Postsurgical changes of L4-L5 discectomy, interbody and posterior fusion with bone grafting.Gas in the soft tissues with adjacent confluent area of soft tissue attenuation can be seen in the setting of epidural abscess. Recommend correlation with same day same-day MR report. Dictated by: Hernán Cárdenas M.D. Peripheral Blood smear: NA Assessment and Plan: Assessment and Plan is now at the top of the note. Cosigned by Josiane Mcgrath MD at 11/09/2023 9:45 AM ELEC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 Associated attestation - Josiane Mcgrath MD - 11/09/2023 9:45 AM ELEC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 I have seen and examined the patient on 11/08/2023. I agree with the findings and plan of care as documented in the resident's/fellow's note. * Amanda Copeland MD - 11/07/2023 10:40 PM CSTAssociated Order(s): IP CONSULT TO ORTHO SPINE Orthopaedic Surgery Spine Service Consult November 07, 2023 10:40 PM Reason for Consult: c/f cauda equina Requesting Provider: ED This patient was evaluated within 30 minutes of consultation. Clohisy/Dheeraj Dx: cauda equina Relevant PMHx: postop cardiac arrest and b/l PE on therapeutic anticoagulation, prostate CA s/p prostatectomy, GERD, obesity, CKD, UTI, melanoma Plan: pending imaging Procedure(s): 10/23: L4-L5 decompression, TLIF, PSF PENDING likely emergent decompression HPI: 73 y.o. male with cauda equina syndrome postoperative from L4-L5 decompression, TLIF, and PSF.His overall course has been complex. Preoperatively, he underwent steroid injection to his lumbar spine with short term relief of his left sided radicular symptoms, but shortly thereafter developed profound left quadriceps weakness. He was scheduled for surgery and was found to have a complex UTI requiring urology stent placement preoperatively. He then underwent surgery and suffered a postoperative cardiac arrest and bilateral pulmonary emboli. He was started on therapeutic lovenox for this. At the time of discharge, his harris was removed and he was found to have worsened urinary incontinence compared with prior to his urologic procedure as well as his spine surgery. He states this has been improving since hospital discharge. He was doing well postoperatively and ambulating with a walkeruntil 6:15 this evening when he developed sudden onset bilateral lower extremity loss of motion andnumbness. His called Dr. Vu at 6:20 pm and he was directed to go to [facility], from which he was life flighted to [facility]. Endorses rapid onset abdominal pain andus altered sensation from waist down, though states this has resolved since arriving to hospital. Exam: 5/5 BUE, SILT all dermatomes, 2+ reflexes throughout, -Hoffmans. LLE 0/5 throughout, SILT all dermatomes, 0 patellar/achilles reflexes, equivocal babinski, no clonus. RLE 0/5 IP/Q/H, 2/5 TA/EHL, 0/5 GSC. SILT all dermatomes. 1+ patellar reflex, 0 achillles, equivocal babinski, no clonus. +Perianal sensation but unable to diff erentiate sharp/dull, diminished rectal tone, intact volitional rectal tone, absent bulbocav. OI: None. Consulting Services: None. PMHx: postop cardiac arrest and b/l PE on therapeutic anticoagulation, prostate CA s/p prostatectomy, GERD, obesity, CKD, UTI, melanoma. 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 , lives w/ spouse Hand dominance: right Baseline Ambulatory Status: community Assistive Device walker Past Medical History: Diagnosis Date Allergic rhinitis Arthritis OA Cancer (CMS/HCC) (HCC) prostate and melonomia Gastric reflux GERD (gastroesophageal reflux disease) History of melanoma Hypertension Kidney stone Personal history of prostate cancer Pneumonia Seasonal allergies Past Surgical History: Procedure Laterality Date FL UPPER GI AIR CONTRAST W KUB Left 09/21/2023 JOINT REPLACEMENT Right 2013 right knee replacement MELANOMA RESECTION Right 2005 right flank PERCUTANEOUS NEPHROSTOMY PCN LEFT Left 10/14/2023 PROSTATECTOMY 2009 REPLACEMENT TOTAL KNEE Left 10/17/2021 REVISION TOTAL KNEE ARTHROPLASTY Right 09/30/2019 VASECTOMY 30 years ago Prior to Admission medications Medication Sig Start Date End Date Taking? Authorizing Provider acyclovir (ZOVIRAX) 400 mg tablet Take 1 tablet (400 mg total) by mouth 2 (two) times a day 06/08/19 Fidelia Perdue MD cephalexin (KEFLEX) 500 mg capsule Take 1 capsule (500 mg total) by mouth daily as needed (30 minutes prior to dental appt) When pt has procedures gets pre antibiotic r/t history knee replacements 10/09/22 Fidelia Perdue MD cetirizine (ZyrTEC) 10 mg tablet Take 1 tablet (10 mg total) by mouth import coordinator before breakfast Fidelia Perdue MD cholecalciferol (VITAMIN D-3) 5,000 unit capsule Take 1 capsule (5,000 Units total) by mouth every morning Fidelia Perdue MD coenzyme Q10 100 mg capsule Take 1 capsule (100 mg total) by mouth import coordinator before breakfast Fidelia Perdue MD cyclobenzaprine (FLEXERIL) 5 mg tablet Take 1 tablet (5 mg total) by mouth 3 (three) times a day asneeded for muscle spasms 10/30/23 Rafael Rodriguez NP DILT-XR 240 mg 24 hr capsule Take 1 capsule (240 mg total) by mouth 2 (two) times a day 05/12/19 Fidelia Perdue MD enoxaparin (LOVENOX) 80 mg/0.8 mL syringe Inject 0.8 mL (80 mg total) under the skin every 12 (twelve) hours 10/30/23 01/28/24 Rafael Rodriguez NP fish,bora,flax oils-om3,6,9no1 400-400-400 mg capsule Take 1 tablet by mouth import coordinator before breakfast Fidelia Perdue MD gabapentin (NEURONTIN) 300 mg capsule Take 1 capsule (300 mg total) by mouth every 8 (eight) hours 10/30/23 11/29/23 Rafael Rodriguez NP irbesartan (AVAPRO) 300 mg tablet Take 1 tablet (300 mg total) by mouth every morning 08/10/21 Fidelia Perdue MD ketorolac (TORADOL) 10 mg tablet Take 1 tablet (10 mg total) by mouth every 6 (six) hours as neededfor pain 11/06/23 Marcial Vu MD levETIRAcetam (KEPPRA) 1,000 mg tablet Take 1 tablet (1,000 mg total) by mouth 2 (two) times a day 10/30/23 12/29/23 Rafael Rodriguez NP Mounjaro 10 mg/0.5 mL pen injector Inject 10 mg under the skin once a week Sunday04/05/23 Fidelia Perdue MD omeprazole (PriLOSEC) 20 mg capsule Take 1 capsule (20 mg total) by mouth every morning Fidelia Perdue MD oxyCODONE (ROXICODONE) 5 mg immediate release tablet Take 1 tablet (5 mg total) by mouth every 4 (four) hours as needed for pain 10/30/23 Nasir Manzanares MD senna-docusate (PERICOLACE) 8.6-50 mg Take 1 tablet by mouth 2 (two) times a day for 15 days 10/30/23 11/14/23 Rafael Rodriguez NP tamsulosin (FLOMAX) 0.4 mg extended release capsule Take 2 capsules (0.8 mg total) by mouth daily with dinner 10/30/23 11/29/23 Rafael Rodriguez, CARLA No Known Allergies Social History Tobacco Use [...] by TW Conv) Anesthesia problems Neg Hx Review of Systems: Constitutional: Negative for chills and fever. HENT: Negative for acute hearing loss Eyes: Negative for pain and visual disturbance. Respiratory: Negative for cough and shortness of breath. Cardiovascular: Negative for chest pain and palpitations. Gastrointestinal: Negative for abdominal pain and vomiting. Genitourinary: Negative for dysuria and hematuria. Musculoskeletal: pain in injured extremity Skin: Negative for acute rash. Neurological: Negative for seizures and syncope. Review of systems per HPI and otherwise all other systems are negative. Objective Vitals: 24hr Min/Max: Temp Min: 36.4 ??C (97.6 ??F) Max: 36.4 ??C (97.6 ??F) Pulse Min: 81 Max: 88 BP Min: 124/84 Max: 141/82 Resp Min: 16 Max: 21 SpO2 Min: 94 % Max: 100 % Most Recent: Vitals: 11/07/23 2150 11/07/23 21511/07/23219911/07/235 BP: 135/80 134/99 137/88 137/81 Pulse: 81 88 86 82 Resp: 18 19 21 16 Temp: SpO2: 96% 94% 100% 98% Weight: Height: Physical Exam: Gen: Well-developed, well-nourished, in no acute distress. A&O: x3 Normal respirations, no dyspnea with speaking Spine: General: No spinal tenderness. No skin defects. ROM deferred until further workup. No visible deformity on inspection. No appreciable muscular atrophy. Nontender, and painless ROM shoulders, elbow, wrist, digits, hips, knees, ankles. Normal muscular tone. Motor: Muscle Strength Left Right Deltoid 5/5 5/5 Biceps 5/5 5/5 Triceps 5/5 5/5 Wrist extension 5/5 5/5 Wrist flexion 5/5 5/5 Mangle Press Catcher 5/5 5/5 Interosseous of hand 5/5 5/5 Iliopsoas 0/5 0/5 Quadriceps 0/5 0/5 Hamstrings 0/5 0/5 Tibialis anterior 0/5 2/5 Extensor hallicus longus 0/5 2/5 Gastrocsoleus complex 0/5 0/5 Sensation Left upper extremity: sensation intact to [...] process (T7), Umbilicus (T10), pubis (T12) Reflexes: Left Upper Extremity: 2+ biceps (C5), 2+ brachioradialis (C6), 2+ triceps (C7). Right Upper Extremity: 2+ biceps (C5), 2+ brachioradialis (C6), 2+ triceps (C7). Left Lower Extremity: 0 patellar tendon (L4), 0 achilles (S1) Right Lower Extremity: 1+ patellar tendon (L4), 0 achilles (S1) Rectal exam: Diminished resting rectal tone but demonstrates volitional tone, absent bulbocaverosus reflex, intact perianal sensation but unable to differentiate sharp/dull Gait: Deferred Long-tract signs: Negative Milner's No clonus Equivocal Babinski bilaterally Vascular: Bilateral Upper Extremity: 2+ radial pulse, fingers WWP Bilateral Lower Extremity 2+ pedal pulses, toes WWP with BCR Lab/Radiology/Diagnostic Review: Laboratory review: No results found for this or any previous visit (from the past 24 hour(s)). Radiology Review: I have reviewed the imaging with the following findings: No new imaging Clinical Images: None Assessment: 73 y.o. male p/w likely cauda equina syndrome in the subacute postoperative setting. Differential includes conus medullaris syndrome. Given his anticoagulated state postoperatively in the setting of pulmonary emboli and cardiac arrest, he is at high risk for bleeding into his canal causing cauda equ susanne/conus medullaris syndrome. Likely emergent OR pending imaging. MRI contacted regarding criticalnature of imaging, orthopedic radiologic technologist conferred that per [facility] protocol there is no spine emergency and that only acute stroke qualifies for MRI. orthopedic radiologic technologist additionally stated if a patient is stable enough to undergo a scan as long as an MRI, they don't need emergent surgery. Again emphasized the urgent nature of scan and described sudden onset paralysis. orthopedic radiologic technologist stated patient would be next on scanner after completion of current scans. Please obtain PVR and maintain NPO pending MRI completion. Plan pending further imaging. If imaging demonstrates hematoma compressing cord/cauda, please reverse lovenox with protamine in preparation for emergent OR. Patient will also require DVT US bilateral lower extremities before or shortly after OR. Plan: Admit following imaging completion, if OR will go direct to OR Further Workup: Pre-op - IPAP evaluation, rapid COVID, CBC/BMP/coags/T&S/UA/CXR/EKG and Post-void residual measurement Further Imaging: MRI total spine WO Precautions: L-spine precautions. No deep bending/twisting/lifting heavy objects Immobilization: none Neuro Checks: q1h Activity: Activity as tolerated, PT/OT/OOB Diet: NPO until further notice DVT ppx: SCDs and please hold chemical DVT ppx Pain control per ED Abx: n/a Please call ortho spine if patient develops any concerning changes to their neurologic exam such asnew weakness or loss of bowel/bladder function. Discussed with Dr. Vu. Amanda Copeland MD Orthopaedic Surgery PGY-2 Normal business hours: If you know the resident's name on the appropriate orthopaedic surgery team,please use the Directory Search at [email or web address] to page resident directly. If questions arise and the appropriate resident can't be reached or you are calling overnight, please contact [phone] ([place]- 7:30 PM - 6:30 AM - Floor Resident) or [phone] (24 hours/day - Consult Resident) Cosigned by Marcial Vu MD at 11/08/2023 3:32 AM ELEC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 Associated attestation - Marcial Vu Jr., MD - 11/08/2023 3:32 AM ELEC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 I personally examined Mr. Evans at the bedside on 11/07/22 when he arrived in the ED. He has had subjectively diminished sensation from the level of the waist distally and severe bilateral lower extremity weakness since approximately 6:15 p.m. this evening. On examination, he is resting comfortably in bed. He is alert and oriented x3. He has 5/5 strength in bilateral deltoids, biceps, triceps, wrist extensors, wrist flexors, finger extensors, finger flexors, and interossei. He has intact sensation to light touch throughout bilateral upper extremities.Tyrese and inverted radial reflex are negative bilaterally. 2+ reflexes throughout bilateral upper extremities. He has 2/5 strength in the right tibialis anterior and EHL, otherwise he has 0/5 strength throughout bilateral lower extremities. Sensation is intact to light touch throughout bilaterallower extremities. No clonus bilaterally. Babinski nonreactive bilaterally. Rectal examination performed by the resident was notable for intact resting and volitional tone with intact perianal sensation but inability to differentiate sharp/dull. Given the overall clinical picture, I am concerned about a hematoma causing compression of the spinal cord and/or cauda equina. Plan: 1. MRI without contrast of the entire spine emergently 2. NPO 3. If OR tonight, will need reversal of Lovenox 4. Will need bilateral lower extremity venous duplexes and if these show DVTs, would recommend IVC filter. These should not hold up OR if MRI shows spinal cord and/or cauda equina compression. documented in this encounter Nursing Notes * Deisy Chiang RN - 11/12/2023 3:26 PM CST I have received this patient from Portillo Cordero RN and agree with the documented assessment. 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 * Kasey Emmanuel RN - 11/09/2023 4:03 PM [place] [id number] [place] [id number] at 1545. Two nurses teamed up to successfully complete a head to toeskin assessment. The findings of this resulted in the following: Blanchable redness on bottom. See full assessment for skin details. The appropriate goals and interventions have been implemented and documented. Will continue to monitor closely. 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 * Niyah Anderson RN - 11/07/2023 8:15 PM CST Verbal order from Dr. Vu- Dr. Vu would like to be notify on patients arrival- [phone] MRI total spine without contrast Bilateral lower extremity venous doppler Consult to ortho-spine 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 documented in this encounter ED Notes * Deisy Ayala MD - 11/07/2023 9:24 PM CST HPI Chief Complaint Patient presents with ??? Post-op Problem Hira Gee is a 73yoM with a past medical history of lumbar radiculopathy, prostate cancer, hypertension who presents with new onset bilateral numbness and paralysis from the waist down who had a lumbar spinal fusion of L4-L5 two weeks ago here with Dr. Vu. His post op course was complicatedby a short code blue in PACU with ROSC in <2min and PE for which he is on therapeutic anticoagulation with lovenox. About 3 hours ago, he had an acute episode of severe abdominal pain and tightness around the waist followed by acute onset of numbness and paralysis from the waist down. He is no longer in pain, now feels fine except for the fact that he can not move his legs. His sensation and pulses are intact bilaterally. He is warm bilaterally. He has not had any episodes of urinary incontinence or fecal incontinence, but neither has he voided or defecated since he onset of paralysis. Prior to this he was having some issues with urinary incontinence and had a [facility] in for a few weeks prior. They do not do any imaging at the outside hospital. Home medications include Acyclovir 400mg BID Cetirizine 10mg Cholecalciferol 5000 IU Coenzyme Q 100 mg Cyclobenzaprine 5 mg TID PRN Diltiazem XR 240 mg BID Irbesartan 300 mg Mounjaro 10 mg Omeprazole 20 mg daily Carolin-colace Tamsulosin 0.8 mg Patient History: Patient Active Problem List Diagnosis Date Noted ??? Pulmonary embolism ([facility]) 10/26/2023 ??? S/P spinal fusion 10/23/2023 ??? Cardiac arrest ([facility]) 10/23/2023 ??? Left perinephric collection, 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 10/15/2023 ??? Ureteral colic 10/13/2023 ??? UTI (urinary tract infection) 10/13/2023 ??? Hydronephrosis with urinary obstruction due to renal calculus 10/12/2023 ??? Lumbar radiculopathy 10/08/2023 ??? Gross hematuria 10/18/2022 ??? Bladder neck obstruction 10/17/2022 ??? Lesion of urinary bladder 10/17/2022 ??? Prostate cancer ([facility]) 10/17/2022 ??? HTN (hypertension) 10/10/2021 ??? Risk factors for obstructive sleep apnea 10/10/2021 ??? 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 Presence of right artificial knee joint 10/25/2018 ??? Primary osteoarthritis of left knee 10/25/2018 ??? Localized adiposity 07/17/2018 ??? Knee pain 10/24/2016 Past Medical History: Diagnosis Date ??? Allergic rhinitis ??? Arthritis OA ??? Cancer (CMS/HCC) ([facility]) prostate and melonomia ??? Gastric reflux ??? GERD (gastroesophageal reflux disease) ??? History of melanoma ??? Hypertension ??? Kidney stone ??? Personal history of prostate cancer ??? Pneumonia ??? Seasonal allergies Past Surgical History: Procedure Laterality Date ??? FL UPPER GI AIR CONTRAST W KUB Left 09/21/2023 ??? JOINT REPLACEMENT Right 2013 right knee replacement ??? MELANOMA RESECTION Right 2005 right flank ??? PERCUTANEOUS NEPHROSTOMY PCN LEFT Left 10/14/2023 ??? PROSTATECTOMY 2009 ??? REPLACEMENT TOTAL KNEE Left 10/17/2021 ??? REVISION TOTAL KNEE ARTHROPLASTY Right 09/30/2019 ??? VASECTOMY 30 years ago Family History Problem Relation Age of Onset ??? Heart disease Mother ??? Lung disease Mother ??? Alcohol abuse Father ??? Cancer Father ??? Heart disease Other Family history of cardiac disorder - (Added by TW Conv) ??? Cancer Other Family history of malignant neoplasm - (Added by TW Conv) ??? Anesthesia problems Neg Hx Social History Tobacco Use ??? Smoking status: Former Packs/day: 1.00 Years: 8.00 Additional pack years: 0.00 Total pack years: 8.00 Types: Cigarettes Start date: 11/05/1968 Quit date: 11/05/1979 Years since quittin.0 Passive exposure: Past ??? Smokeless tobacco: Never Vaping Use ??? Vaping Use: Never used Substance and Sexual Activity ??? Alcohol use: Yes Alcohol/week: 14.0 standard drinks of alcohol Types: 14 Glasses of wine per week Comment: social ??? Drug use: Yes Frequency: 7.0 times per week Types: Medical marijuana Comment: MJ = edibles daily for pain; Alcohol = 2 glasses of wine per evening ??? Sexual activity: Yes Partners: Female control/protection: Vasectomy Social History Social History Narrative ??? Not on file Review of Systems Review of Systems Constitutional: Negative for chills, fatigue and fever. HENT: Negative for congestion. Eyes: Negative for visual disturbance. Respiratory: Negative for cough and shortness of breath. Cardiovascular: Negative for chest pain and leg swelling. Gastrointestinal: Positive for abdominal pain. Negative for constipation, diarrhea, nausea and vomiting. Genitourinary: Negative for decreased urine volume and dysuria. Skin: Negative for color change and wound. Neurological: Positive for weakness. Negative for dizziness, seizures, light- headedness and headaches. Physical Exam ED Triage Vitals [11/07/232120] Temp Pulse Resp BP SpO2 36.4 ??C (97.6 ??F) 88 18 134/86 98 % Temp src Heart Rate Source Patient Position BP Location FiO2 (%) -- -- -- -- -- Height Height Method Weight Weight Method 1.727 m (5' 7.99 ) Stated 88.6 kg (195 lb 5.2 oz) -- Physical Exam Vitals reviewed. Constitutional: General: He is not in acute distress. Appearance: Normal appearance. HENT: Head: Normocephalic and atraumatic. Mouth/Throat: Mouth: Mucous membranes are moist. Eyes: Extraocular Movements: Extraocular movements intact. Cardiovascular: Rate and Rhythm: Normal rate and regular rhythm. Pulses: Normal pulses. Pulmonary: Effort: Pulmonary effort is normal. No respiratory distress. Breath sounds: Normal breath sounds. Abdominal: General: Abdomen is flat. There is no distension. Palpations: Abdomen is soft. Tenderness: There is no abdominal tenderness. Musculoskeletal: Right lower leg: No edema. Left lower leg: No edema. Skin: General: Skin is warm and dry. Capillary Refill: Capillary refill takes less than 2 seconds. Coloration: Skin is not jaundiced. Neurological: Mental Status: He is alert and oriented to person, place, and time. Cranial Nerves: No dysarthria or facial asymmetry. Sensory: Sensation is intact. Comments: Unable to move BLE from the hip down. Upon asking about moving toes, was able to *slightly* move R great toe. Psychiatric: Mood and Affect: Mood normal. Behavior: Behavior normal. [facility] Medical Decision Making Hira Gee is a 73yoM with a past medical history of lumbar radiculopathy, prostate cancer, hypertension who presents with new onset bilateral numbness and paralysis from the waist down who had a lumbar spinal fusion of L4-L5 two weeks ago here with Dr. Vu. Concern is primarily for a epidural hematoma. Patient had small, bilateral subdural hematomas previously and has been on Lovenox. His last dose of Lovenox was this morning. Plan will be to obtain emergent MRI total spine with and without contrast. Dr. Vu and his team aware at the bedside. Dispo: Pending MRI imaging, patient may go to OR tonight. Otherwise, will admit to 4400 SICU Amount and/or Complexity of Data Reviewed Radiology: ordered. Risk OTC drugs. : Attending Summary of Care Patient is a 73-year-old male with recent past medical history of lumbar laminectomy of L4 L5-2 weeks ago. This was complicated by suspected cardiac arrest with short period of CPR with return of spontaneous circulation. Patient was noted to have pulmonary emboli for which he is anticoagulated at that time. Patient is now here with a few hours of inability to move bilateral lower extremities. Patient has very slight flexion of his toes but no a greater motor function. Concern for epidural hematoma. Planning for emergent MRI. Have discussed this with his surgeon Dr. Vu. There is the patient currently on MRI scanner and patient will be next for MRI once free. ED Course as of 11/08/23 0058 Time: 11/07 2215 Comment: Discussed with Dr. Vu. Planning for emergent MRI and may take his surgery tonight pending results of that MRI. Patient is therapeutically anticoagulated on Lovenox and if he does go to the OR he will need to be reversed prior in the ED. also requesting bilateral lower extremity Dopplers either pre or postoperatively in consideration for IVC filter. Plan for postoperative dopplers orDopplers in the morning. By: Deisy Ayala MD Time: 11/07 2238 Comment: Called [facility]. Patient is on the schedule for 2329 and is the next patient. By: Deisy Ayala MD Time: 11/08 005 Comment: Ortho spine requested CT of CT and L-spine non con. They are planning for OR By: Abdi Dwyer MD Paralysis of both lower limbs ([facility]) ([facility]) Deisy Ayala MD Resident 11/07/23 224 Cosigned by Temo Hampton MD at 11/09/2023 12:50 AM ELEC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 Associated attestation - Temo Hampton MD - 11/09/2023 12:50 AM ELEC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 I have seen and examined the patient on 11/07/2023. I agree with the findings and plan of care as documented in the resident's note. * Jessenia Fox RN - 11/07/2023 9:15 PM CST Presented to OSH with c/o BLE numbness and tingling, unable to ambulate. Post-op 10/19/23, laminectomy on L4/L5 with Dr. Vu, concern for hematoma. Pt started having tightness in his abd about 3hrs ago then lost movement in BLE. At baseline pt was walking with walker. A&O4, VSS. 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 * Jessenia Fox RN - 11/07/2023 9:13 PM CST Bed: [facility] Expected date: 11/07/23 Expected time: 12:00 AM Means of arrival: Medical Flight Comments: Jessenia Fox, NARENDRA 11/07/232112 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 documented in this encounter Miscellaneous Notes * Plan of Care - Deisy Chiang RN - 11/16/2023 11:47 AM CST Goals: Clinical Goals for the Shift: VSS, I&Os, pain management, lift to chair, transfer to floor/d/c,neuro checks Q4 Summary: Vitals stable, UOP adequate, condom cath exchanged with movement, pain managed with scheduled meds, slide board to chair, transfer to [facility] this afternoon, neuro checks stable Problem: Activity: Goal: Mobility will improve Outcome: [...] to fullest extent possible Outcome: Progressing Problem: Health Behavior: Goal: Understanding of discharge needs will improve Outcome: Progressing Problem: Lack of [...] Pain level will decrease Outcome: Progressing Problem: Activity: Goal: Ability to return to normal activity level will improve Outcome: Progressing Problem: Lack of Knowledge: Goal: Knowledge of the prescribed therapeutic regimen will improve Outcome: Progressing Problem: Coping: Goal: Ability to cope will improve Outcome: Progressing Problem: Health Behavior: Goal: Identification of resources available to assist in meeting health care needs will improve Outcome: Progressing Problem: Sensory: Goal: Pain level will decrease Outcome: Progressing [...] Lack of Knowledge: Goal: Ability to state signs and symptoms to report to health care provider will improve Outcome: Progressing Goal: Understanding of ways to prevent infection will improve Outcome: Progressing Problem: Nutritional: Goal: Nutritional status will improve Outcome: Progressing Problem: Physical Regulation: Goal: Diagnostic test results will improve Outcome: Progressing Goal: Will remain free from infection Outcome: Progressing Goal: Ability to maintain vital signs within normal range will improve Outcome: Progressing Problem: Respiratory: Goal: Ability to maintain normal respiratory secretions will improve Outcome: Progressing Problem: Skin Integrity: Goal: Demonstration of wound healing without infection will improve Outcome: Progressing Goal: Complications related to intravenous access or infusion will be avoided or minimized Outcome: Progressing Problem: Activity: Goal: Ability to avoid complications of mobility impairment will improve Outcome: Progressing Goal: Ability to tolerate increased activity will improve Outcome: Progressing Problem: Bowel/Gastric: Goal: Gastrointestinal status for postoperative course will improve Outcome: Progressing Problem: Lack of Knowledge: Goal: Ability to verbalize activity precautions or restrictions will improve Outcome: Progressing Goal: Knowledge of the prescribed therapeutic regimen will improve Outcome: Progressing Problem: Coping: Goal: Ability to verbalize feelings will improve Outcome: Progressing Problem: Fluid Volume: Goal: Will maintain adequate fluid volume Outcome: Progressing Problem: Health Behavior: Goal: Identification of resources available to assist in meeting health care needs will improve Outcome: Progressing Problem: Physical Regulation: Goal: Neurologic status will improve Outcome: Progressing Goal: Ability to maintain clinical measurements within normal limits will improve Outcome: Progressing Problem: Respiratory: Goal: Ability to maintain adequate ventilation will improve Outcome: Progressing Problem: Sensory: Goal: Pain level will decrease Outcome: Progressing Problem: Skin Integrity: Goal: Signs of wound healing will improve Outcome: Progressing Goal: Will remain free from infection Outcome: Progressing 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 * Plan of Care - Josiane Blakely RN - 11/16/2023 9:02 AM CST 11/16/23 0902 Communications Important Message from Medicare notice given to patient? Yes IM letter completed with patient/underwriting sales representative at bedside. Patient/underwriting sales representative were informed ofthe planned discharge date, the date the beneficiary's financial liability begins, the beneficiary's appeal rights, and how and when to initiate an appeal. Patient/underwriting sales representative were provided a copy of the IM letter and IM letter was placed in unit???s designated medical record bin to be uploaded into the patient???s chart. 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 * Plan of Care - Joann Hurtado RN - 11/16/2023 6:16 AM ELEC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 Goals: Problem: Activity: Goal: Mobility will improve Outcome: [...] to fullest extent possible Outcome: Progressing Problem: Health Behavior: Goal: Understanding of discharge needs will improve Outcome: Progressing Problem: Lack of [...] Pain level will decrease Outcome: Progressing Problem: Activity: Goal: Ability to return to normal activity level will improve Outcome: Progressing Problem: Lack of Knowledge: Goal: Knowledge of the prescribed therapeutic regimen will improve Outcome: Progressing Problem: Coping: Goal: Ability to cope will improve Outcome: Progressing Problem: Health Behavior: Goal: Identification of resources available to assist in meeting health care needs will improve Outcome: Progressing Problem: Sensory: Goal: Pain level will decrease Outcome: Progressing [...] Lack of Knowledge: Goal: Ability to state signs and symptoms to report to health care provider will improve Outcome: Progressing Goal: Understanding of ways to prevent infection will improve Outcome: Progressing Problem: Nutritional: Goal: Nutritional status will improve Outcome: Progressing Problem: Physical Regulation: Goal: Diagnostic test results will improve Outcome: Progressing Goal: Will remain free from infection Outcome: Progressing Goal: Ability to maintain vital signs within normal range will improve Outcome: Progressing Problem: Respiratory: Goal: Ability to maintain normal respiratory secretions will improve Outcome: Progressing Problem: Skin Integrity: Goal: Demonstration of wound healing without infection will improve Outcome: Progressing Goal: Complications related to intravenous access or infusion will be avoided or minimized Outcome: Progressing Problem: Activity: Goal: Ability to avoid complications of mobility impairment will improve Outcome: Progressing Goal: Ability to tolerate increased activity will improve Outcome: Progressing Problem: Bowel/Gastric: Goal: Gastrointestinal status for postoperative course will improve Outcome: Progressing Problem: Lack of Knowledge: Goal: Ability to verbalize activity precautions or restrictions will improve Outcome: Progressing Goal: Knowledge of the prescribed therapeutic regimen will improve Outcome: Progressing Problem: Coping: Goal: Ability to verbalize feelings will improve Outcome: Progressing Problem: Fluid Volume: Goal: Will maintain adequate fluid volume Outcome: Progressing Problem: Health Behavior: Goal: Identification of resources available to assist in meeting health care needs will improve Outcome: Progressing Problem: Physical Regulation: Goal: Neurologic status will improve Outcome: Progressing Goal: Ability to maintain clinical measurements within normal limits will improve Outcome: Progressing Problem: Respiratory: Goal: Ability to maintain adequate ventilation will improve Outcome: Progressing Problem: Sensory: Goal: Pain level will decrease Outcome: Progressing Problem: Skin Integrity: Goal: Signs of wound healing will improve Outcome: Progressing Goal: Will remain free from infection Outcome: Progressing Clinical Goals for the Shift: monitor VS, labs, rest overnight Summary: Vitals stable. Labs drawn. Patient slept some overnight. 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 * Plan of Care - Radha Hancock RN - 11/15/2023 1:32 PM CST Goals: Problem: Activity: Goal: Mobility will improve Outcome: [...] to fullest extent possible Outcome: Progressing Problem: Health Behavior: Goal: Understanding of discharge needs will improve Outcome: Progressing Problem: Lack of [...] Pain level will decrease Outcome: Progressing Problem: Activity: Goal: Ability to return to normal activity level will improve Outcome: Progressing Problem: Lack of Knowledge: Goal: Knowledge of the prescribed therapeutic regimen will improve Outcome: Progressing Problem: Coping: Goal: Ability to cope will improve Outcome: Progressing Problem: Health Behavior: Goal: Identification of resources available to assist in meeting health care needs will improve Outcome: Progressing Problem: Sensory: Goal: Pain level will decrease Outcome: Progressing [...] Lack of Knowledge: Goal: Ability to state signs and symptoms to report to health care provider will improve Outcome: Progressing Goal: Understanding of ways to prevent infection will improve Outcome: Progressing Problem: Nutritional: Goal: Nutritional status will improve Outcome: Progressing Problem: Physical Regulation: Goal: Diagnostic test results will improve Outcome: Progressing Goal: Will remain free from infection Outcome: Progressing Goal: Ability to maintain vital signs within normal range will improve Outcome: Progressing Problem: Respiratory: Goal: Ability to maintain normal respiratory secretions will improve Outcome: Progressing Problem: Skin Integrity: Goal: Demonstration of wound healing without infection will improve Outcome: Progressing Goal: Complications related to intravenous access or infusion will be avoided or minimized Outcome: Progressing Problem: Activity: Goal: Ability to avoid complications of mobility impairment will improve Outcome: Progressing Goal: Ability to tolerate increased activity will improve Outcome: Progressing Problem: Bowel/Gastric: Goal: Gastrointestinal status for postoperative course will improve Outcome: Progressing Problem: Lack of Knowledge: Goal: Ability to verbalize activity precautions or restrictions will improve Outcome: Progressing Goal: Knowledge of the prescribed therapeutic regimen will improve Outcome: Progressing Problem: Coping: Goal: Ability to verbalize feelings will improve Outcome: Progressing Problem: Fluid Volume: Goal: Will maintain adequate fluid volume Outcome: Progressing Problem: Health Behavior: Goal: Identification of resources available to assist in meeting health care needs will improve Outcome: Progressing Problem: Physical Regulation: Goal: Neurologic status will improve Outcome: Progressing Goal: Ability to maintain clinical measurements within normal limits will improve Outcome: Progressing Problem: Respiratory: Goal: Ability to maintain adequate ventilation will improve Outcome: Progressing Problem: Sensory: Goal: Pain level will decrease Outcome: Progressing Problem: Skin Integrity: Goal: Signs of wound healing will improve Outcome: Progressing Goal: Will remain free from infection Outcome: Progressing Clinical Goals for the Shift: up OOB, BG stable, pain control Summary: Patient worked with OT this morning and did arm exercises with the resistance bands. Patient was in the chair for 5 hours today. BG stable and corrected with mealtime insulin. Patient's painwell controlled. Will continue to monitor. 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 * Plan of Care - Josiane Blakely RN - 11/15/2023 8:10 AM CST Per Medical Chart/Rounds/IDR: Continues to do well with therapy. C/T/L spine XR completed yesterday. Taper dexamethsone for the next 3 days, wound vac change taken down today ADD: pending insurance authorization Plan & referrals made/in place: [facility] following for IPR admission, CM updated liaison Stefany on discharge plan Support following discharge: spouse Val Evans [phone]/facility Transportation: to be arranged prior to discharge F/U Appointments: to be scheduled by primary team Patient's Identified Problem/Goal Problem: Ensure acute medical needs are met and that patient has a safe discharge plan. Goal: Secure a discharge plan that patient/family are agreeable with and ensure patient has continuum of care. Patient and/or family are agreeable with plan. clubhouse manager will continue to follow and assist with discharge planning as needed. If any further discharge needs arise, please contact the covering caser shoe parts. 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 * Plan of Care - Joann Hurtado RN - 11/15/2023 7:08 AM ELEC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 Goals: Problem: Activity: Goal: Mobility will improve Outcome: [...] to fullest extent possible Outcome: Progressing Problem: Health Behavior: Goal: Understanding of discharge needs will improve Outcome: Progressing Problem: Lack of [...] Pain level will decrease Outcome: Progressing Problem: Activity: Goal: Ability to return to normal activity level will improve Outcome: Progressing Problem: Lack of Knowledge: Goal: Knowledge of the prescribed therapeutic regimen will improve Outcome: Progressing Problem: Coping: Goal: Ability to cope will improve Outcome: Progressing Problem: Health Behavior: Goal: Identification of resources available to assist in meeting health care needs will improve Outcome: Progressing Problem: Sensory: Goal: Pain level will decrease Outcome: Progressing [...] Lack of Knowledge: Goal: Ability to state signs and symptoms to report to health care provider will improve Outcome: Progressing Goal: Understanding of ways to prevent infection will improve Outcome: Progressing Problem: Nutritional: Goal: Nutritional status will improve Outcome: Progressing Problem: Physical Regulation: Goal: Diagnostic test results will improve Outcome: Progressing Goal: Will remain free from infection Outcome: Progressing Goal: Ability to maintain vital signs within normal range will improve Outcome: Progressing Problem: Respiratory: Goal: Ability to maintain normal respiratory secretions will improve Outcome: Progressing Problem: Skin Integrity: Goal: Demonstration of wound healing without infection will improve Outcome: Progressing Goal: Complications related to intravenous access or infusion will be avoided or minimized Outcome: Progressing Problem: Activity: Goal: Ability to avoid complications of mobility impairment will improve Outcome: Progressing Goal: Ability to tolerate increased activity will improve Outcome: Progressing Problem: Bowel/Gastric: Goal: Gastrointestinal status for postoperative course will improve Outcome: Progressing Problem: Lack of Knowledge: Goal: Ability to verbalize activity precautions or restrictions will improve Outcome: Progressing Goal: Knowledge of the prescribed therapeutic regimen will improve Outcome: Progressing Problem: Coping: Goal: Ability to verbalize feelings will improve Outcome: Progressing Problem: Fluid Volume: Goal: Will maintain adequate fluid volume Outcome: Progressing Problem: Health Behavior: Goal: Identification of resources available to assist in meeting health care needs will improve Outcome: Progressing Problem: Physical Regulation: Goal: Neurologic status will improve Outcome: Progressing Goal: Ability to maintain clinical measurements within normal limits will improve Outcome: Progressing Problem: Respiratory: Goal: Ability to maintain adequate ventilation will improve Outcome: Progressing Problem: Sensory: Goal: Pain level will decrease Outcome: Progressing Problem: Skin Integrity: Goal: Signs of wound healing will improve Outcome: Progressing Goal: Will remain free from infection Outcome: Progressing Clinical Goals for the Shift: monitor VS, Q4 neuro checks, rest overnight Summary: Vitals stable. Neuro checks unchanged. Patient rested overnight. 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 * Plan of Care - Radha Hacnock RN - 11/14/2023 2:32 PM CST Goals: Problem: Activity: Goal: Mobility will improve Outcome: [...] to fullest extent possible Outcome: Progressing Problem: Health Behavior: Goal: Understanding of discharge needs will improve Outcome: Progressing Problem: Lack of [...] Pain level will decrease Outcome: Progressing Problem: Activity: Goal: Ability to return to normal activity level will improve Outcome: Progressing Problem: Lack of Knowledge: Goal: Knowledge of the prescribed therapeutic regimen will improve Outcome: Progressing Problem: Coping: Goal: Ability to cope will improve Outcome: Progressing Problem: Health Behavior: Goal: Identification of resources available to assist in meeting health care needs will improve Outcome: Progressing Problem: Sensory: Goal: Pain level will decrease Outcome: Progressing [...] Lack of Knowledge: Goal: Ability to state signs and symptoms to report to health care provider will improve Outcome: Progressing Goal: Understanding of ways to prevent infection will improve Outcome: Progressing Problem: Nutritional: Goal: Nutritional status will improve Outcome: Progressing Problem: Physical Regulation: Goal: Diagnostic test results will improve Outcome: Progressing Goal: Will remain free from infection Outcome: Progressing Goal: Ability to maintain vital signs within normal range will improve Outcome: Progressing Problem: Respiratory: Goal: Ability to maintain normal respiratory secretions will improve Outcome: Progressing Problem: Skin Integrity: Goal: Demonstration of wound healing without infection will improve Outcome: Progressing Goal: Complications related to intravenous access or infusion will be avoided or minimized Outcome: Progressing Problem: Activity: Goal: Ability to avoid complications of mobility impairment will improve Outcome: Progressing Goal: Ability to tolerate increased activity will improve Outcome: Progressing Problem: Bowel/Gastric: Goal: Gastrointestinal status for postoperative course will improve Outcome: Progressing Problem: Lack of Knowledge: Goal: Ability to verbalize activity precautions or restrictions will improve Outcome: Progressing Goal: Knowledge of the prescribed therapeutic regimen will improve Outcome: Progressing Problem: Coping: Goal: Ability to verbalize feelings will improve Outcome: Progressing Problem: Fluid Volume: Goal: Will maintain adequate fluid volume Outcome: Progressing Problem: Health Behavior: Goal: Identification of resources available to assist in meeting health care needs will improve Outcome: Progressing Problem: Physical Regulation: Goal: Neurologic status will improve Outcome: Progressing Goal: Ability to maintain clinical measurements within normal limits will improve Outcome: Progressing Problem: Respiratory: Goal: Ability to maintain adequate ventilation will improve Outcome: Progressing Problem: Sensory: Goal: Pain level will decrease Outcome: Progressing Problem: Skin Integrity: Goal: Signs of wound healing will improve Outcome: Progressing Goal: Will remain free from infection Outcome: Progressing Clinical Goals for the Shift: up OOB, pain control, Q4 neuro checks Summary: Patient is working with PT now to get OOB to the chair. Pain is well controlled. Patient remains neurologically intact and is A&Ox4. Will continue to monitor. 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 POD 6. Continues to work on transfers with PT and sitting up in chair. TTF. Wound vac down tomorrow, POD 7. ADD: 11/15 Plan & referrals made/in place: [facility] following for admission, CM updated liamanuela Mccall on discharge plan Support following discharge: spouse Val Evans [phone]/facility Transportation: to be arranged prior to discharge F/U Appointments: to be scheduled by primary team Patient's Identified Problem/Goal Problem: Ensure acute medical needs are met and that patient has a safe discharge plan. Goal: Secure a discharge plan that patient/family are agreeable with and ensure patient has continuum of care. Patient and/or family are agreeable with plan. clubhouse manager will continue to follow and assist with discharge planning as needed. If any further discharge needs arise, please contact the covering [employer]. 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 * Plan of Care - Son Brown RN - 11/14/2023 3:53 AM CST Goals: Clinical Goals for the Shift: VSS, I/Os, pain management, safety, q2 neuro Summary: VSS, I/Os documented, pain managed, safety maintained, q4 neuro checks completed Problem: Activity: Goal: Mobility will improve Outcome: [...] to fullest extent possible Outcome: Progressing Problem: Health Behavior: Goal: Understanding of discharge needs will improve Outcome: Progressing Problem: Lack of [...] Pain level will decrease Outcome: Progressing Problem: Activity: Goal: Ability to return to normal activity level will improve Outcome: Progressing Problem: Lack of Knowledge: Goal: Knowledge of the prescribed therapeutic regimen will improve Outcome: Progressing Problem: Coping: Goal: Ability to cope will improve Outcome: Progressing Problem: Health Behavior: Goal: Identification of resources available to assist in meeting health care needs will improve Outcome: Progressing Problem: Sensory: Goal: Pain level will decrease Outcome: Progressing [...] Lack of Knowledge: Goal: Ability to state signs and symptoms to report to health care provider will improve Outcome: Progressing Goal: Understanding of ways to prevent infection will improve Outcome: Progressing Problem: Nutritional: Goal: Nutritional status will improve Outcome: Progressing Problem: Physical Regulation: Goal: Diagnostic test results will improve Outcome: Progressing Goal: Will remain free from infection Outcome: Progressing Goal: Ability to maintain vital signs within normal range will improve Outcome: Progressing Problem: Respiratory: Goal: Ability to maintain normal respiratory secretions will improve Outcome: Progressing Problem: Skin Integrity: Goal: Demonstration of wound healing without infection will improve Outcome: Progressing Goal: Complications related to intravenous access or infusion will be avoided or minimized Outcome: Progressing Problem: Activity: Goal: Ability to avoid complications of mobility impairment will improve Outcome: Progressing Goal: Ability to tolerate increased activity will improve Outcome: Progressing Problem: Bowel/Gastric: Goal: Gastrointestinal status for postoperative course will improve Outcome: Progressing Problem: Lack of Knowledge: Goal: Ability to verbalize activity precautions or restrictions will improve Outcome: Progressing Goal: Knowledge of the prescribed therapeutic regimen will improve Outcome: Progressing Problem: Coping: Goal: Ability to verbalize feelings will improve Outcome: Progressing Problem: Fluid Volume: Goal: Will maintain adequate fluid volume Outcome: Progressing Problem: Health Behavior: Goal: Identification of resources available to assist in meeting health care needs will improve Outcome: Progressing Problem: Physical Regulation: Goal: Neurologic status will improve Outcome: Progressing Goal: Ability to maintain clinical measurements within normal limits will improve Outcome: Progressing Problem: Respiratory: Goal: Ability to maintain adequate ventilation will improve Outcome: Progressing Problem: Sensory: Goal: Pain level will decrease Outcome: Progressing Problem: Skin Integrity: Goal: Signs of wound healing will improve Outcome: Progressing Goal: Will remain free from infection Outcome: Progressing 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 * Plan of Care - Pau Clifford RN - 11/13/2023 2:18 AM CST Problem: Activity: Goal: Mobility will [...] to fullest extent possible Outcome: Progressing Problem: Health Behavior: Goal: Understanding of discharge needs will improve Outcome: Progressing Problem: Lack of [...] Pain level will decrease Outcome: Progressing Problem: Activity: Goal: Ability to return to normal activity level will improve Outcome: Progressing Problem: Lack of Knowledge: Goal: Knowledge of the prescribed therapeutic regimen will improve Outcome: Progressing Problem: Coping: Goal: Ability to cope will improve Outcome: Progressing Problem: Health Behavior: Goal: Identification of resources available to assist in meeting health care needs will improve Outcome: Progressing Problem: Sensory: Goal: Pain level will decrease Outcome: Progressing [...] Lack of Knowledge: Goal: Ability to state signs and symptoms to report to health care provider will improve Outcome: Progressing Goal: Understanding of ways to prevent infection will improve Outcome: Progressing Problem: Nutritional: Goal: Nutritional status will improve Outcome: Progressing Problem: Physical Regulation: Goal: Diagnostic test results will improve Outcome: Progressing Goal: Will remain free from infection Outcome: Progressing Goal: Ability to maintain vital signs within normal range will improve Outcome: Progressing Problem: Respiratory: Goal: Ability to maintain normal respiratory secretions will improve Outcome: Progressing Problem: Skin Integrity: Goal: Demonstration of wound healing without infection will improve Outcome: Progressing Goal: Complications related to intravenous access or infusion will be avoided or minimized Outcome: Progressing Problem: Activity: Goal: Ability to avoid complications of mobility impairment will improve Outcome: Progressing Goal: Ability to tolerate increased activity will improve Outcome: Progressing Problem: Bowel/Gastric: Goal: Gastrointestinal status for postoperative course will improve Outcome: Progressing Problem: Lack of Knowledge: Goal: Ability to verbalize activity precautions or restrictions will improve Outcome: Progressing Goal: Knowledge of the prescribed therapeutic regimen will improve Outcome: Progressing Problem: Coping: Goal: Ability to verbalize feelings will improve Outcome: Progressing Problem: Fluid Volume: Goal: Will maintain adequate fluid volume Outcome: Progressing Problem: Health Behavior: Goal: Identification of resources available to assist in meeting health care needs will improve Outcome: Progressing Problem: Physical Regulation: Goal: Neurologic status will improve Outcome: Progressing Goal: Ability to maintain clinical measurements within normal limits will improve Outcome: Progressing Problem: Respiratory: Goal: Ability to maintain adequate ventilation will improve Outcome: Progressing Problem: Sensory: Goal: Pain level will decrease Outcome: Progressing Problem: Skin Integrity: Goal: Signs of wound healing will improve Outcome: Progressing Goal: Will remain free from infection Outcome: Progressing Goals: Clinical Goals for the Shift: VSS, I/Os, pain management, safety, q2 neuro Summary: VSS, pt denies pain and is resting comfortably at this time. Plan of care ongoing. 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 POD 4 s/p T5-L5 laminectomies w/hematoma evacuation and lumbar dural repair. Drain management. Neuro rehab PMR c/s pending. TLSO brace when OOB. iVac x 7 days. ADD: pending update from primary team with this information Plan & referrals made/in place: Current therapy recs for IPR. Patient/spouse Irenehumaira Nathan [phone] prefer [facility] - electronic referral sent Support following discharge: spouse Val Finneganjacinda [phone]/facility Transportation: to be arranged prior to discharge F/U Appointments: to be scheduled by primary team Patient's Identified Problem/Goal Problem: Ensure acute medical needs are met and that patient has a safe discharge plan. Goal: Secure a discharge plan that patient/family are agreeable with and ensure patient has continuum of care. Patient and/or family are agreeable with plan. clubhouse manager will continue to follow and assist with discharge planning as needed. If any further discharge needs arise, please contact the covering caser [employer]. 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 * [facility] Note - Josiane Blakely RN - 11/12/2023 11:51 AM CST Images from the original note were not included. Patient Information: Head to Toe Assess Default Flowsheet Data (most recent) Complex Assessment - 11/12/23947 Neurological Orientation Oriented X4 (person, place, time, situation) Surgical Site 10/23/23 Back Site Properties Date First Assessed: 10/23/23 Time First Assessed: 1747 Location: Back Negative Pressure Wound Therapy Mid-line Back NPWT Properties Placement Date: 11/08/23 Placement Time: 1039 Inserted by: Dr. Vu Wound Type: Surgical incision Location Orientation: Mid-line Location: Back , Meds and Admin Active Only All Meds/Most Recent Administrations protamine injection 40 mg [[id number]] Ordering Provider: Lex Carrillo III, MD Status: Completed (Past End Date/Time) Ordered On: 11/08/2399 Starts/Ends: 11/08/23100 - 11/08/23134 Ordered Dose (Remaining/Total): 40 mg (0/1) Route: intravenous Frequency: Once Ordered Rate/Order Duration: -- / -- Admin Instructions: Rate not to exceed 50 mg over 10 minutes Line Med Link Info Comment Peripheral IV 11/07/23 20 G Left Antecubital 11/08/23 013 by Jessenia Fox RN -- Timestamps Action Dose Route Other Information 11/08/23134 Given 40 mg intravenous Performed by: Jessenia Fox RN Scanned Package: 00444-661-85 acetaminophen (TYLENOL) tablet 1,000 mg [[id number]] Ordering Provider: Vicki Rehman NP Status: Dispensed Ordered On: 11/08/23 1141 Start: 11/08/23 1215 Ordered Dose (Remaining/Total): 1,000 mg (--/--) Route: oral Frequency: Every 6 hours Ordered Rate/Order Duration: -- / -- Timestamps Action Dose Route Other Information 11/12/23 1130 Given 1,000 mg oral Performed by: Portillo Cordero RN Scanned Package: [id number], [id number] dexAMETHasone (DECADRON) 4 mg/mL injection 4 mg [[id number]] Ordering Provider: Vicki Rehman NP Status: Dispensed Ordered On: 11/08/23 1156 Starts/Ends: 11/08/23 1230 - 11/15/23 1159 Ordered Dose (Remaining/Total): 4 mg (10/02) Route: intravenous Frequency: Every 6 hours scheduled Ordered Rate/Order Duration: -- / 2 Minutes Line Med Link Info Comment Peripheral IV 11/09/23 20 G Anterior;Distal;Left;Upper Arm 11/10/23 2317 by Madhav Hernandez RN-- Peripheral IV 11/11/23 Anterior;Distal;Right;Upper Arm 11/12/23 0045 by Madhav Hernandez RN -- Timestamps Action Dose / Duration Route Other Information 11/12/23 1130 Given 4 mg 2 Minutes intravenous Performed by: Portillo Cordero RN Scanned Package: [id number] (PROTONIX) extended release tablet 40 mg [[id number]] Ordering Provider: Vicki Rehman NP Status: Dispensed Ordered On: 11/08/23 120 Start: 11/08/23 1245 Ordered Dose (Remaining/Total): 40 mg (--/--) Route: oral Frequency: Daily Ordered Rate/Order Duration: -- / -- Admin Instructions: Do not crush, chew, cut, dissolve, open or otherwise manipulate tablet/capsule. Timestamps Action Dose Route Other Information 11/12/23 0857 Given 40 mg oral Performed by: Portillo Cordero RN Scanned Package: [id number] levETIRAcetam (KEPPRA) tablet 1,000 mg [[id number]] Ordering Provider: Vicki Rehman NP Status: Dispensed Ordered On: 11/08/23 1204 Start: 11/08/23 1245 Ordered Dose (Remaining/Total): 1,000 mg (--/--) Route: oral Frequency: 2 times daily Ordered Rate/Order Duration: -- / -- Timestamps Action Dose Route Other Information 11/12/23 0856 Given 1,000 mg oral Performed by: Portillo Cordero RN Scanned Package: [id number] gabapentin (NEURONTIN) capsule 300 mg [[id number]] Ordering Provider: Vicki Rehman NP Status: Dispensed Ordered On: 11/08/23 1204 Start: 11/08/23 1600 Ordered Dose (Remaining/Total): 300 mg (--/--) Route: oral Frequency: 3 times daily Ordered Rate/Order Duration: -- / -- Timestamps Action Dose Route Other Information 11/12/23 0857 Given 300 mg oral Performed by: Portillo Cordero RN Scanned Package: 34651-740-12 hydrALAZINE (APRESOLINE) injection 10 mg [[id number]] Ordering Provider: Vicki Rehman NP Status: Dispensed Ordered On: 11/08/23 1248 Start: 11/08/23 1248 Ordered Dose (Remaining/Total): 10 mg (--/--) Route: intravenous Frequency: Every 4 hours PRN Ordered Rate/Order Duration: -- / 2 Minutes Timestamps Action Dose / Duration Route Other Information 11/08/23 1254 Given 10 mg 2 Minutes intravenous Performed by: Hannah Jeffery RN Scanned Package: 13424-531-29 magnesium sulfate 2 g/50 mL in water (premix) 2 g [[id number]] Ordering Provider: Vicki Rehman NP Status: Completed (Past End Date/Time) Ordered On: 11/08/23 1322 Starts/Ends: 11/08/23 1400 - 11/08/23 1454 Ordered Dose (Remaining/Total): 2 g (0/1) Route: intravenous Frequency: Once Ordered Rate/Order Duration: -- / 60 Minutes Timestamps Action Dose / Duration Route Other Information 11/08/23 1354 New Bag 2 g 60 Minutes intravenous Performed by: Hannah Jeffery RN Scanned Package: 21263-926-44 ondansetron (ZOFRAN) injection 4 mg [[id number]] Ordering Provider: Vicki Rehman NP Status: Dispensed Ordered On: 11/08/23 1353 Start: 11/08/23 1352 Ordered Dose (Remaining/Total): 4 mg (--/--) Route: intravenous Frequency: Every 6 hours PRN Ordered Rate/Order Duration: -- / 2 Minutes Admin Instructions: 1st line Timestamps Action Dose / Duration Route Other Information 11/09/23 1322 Given 4 mg 2 Minutes intravenous Performed by: Lucio Gaines RN Scanned Package: [address]-1 ceFAZolin (ANCEF) 2,000 mg/20 mL in sterile water (premix) 2,000 mg [[id number]] Ordering Provider: Vicki Rehman NP Status: Dispensed Ordered On: 11/08/23 1403 Start: 11/08/23 1630 Ordered Dose (Remaining/Total): 2,000 mg (--/--) Route: intravenous Frequency: Every 8 hours scheduled Ordered Rate/Order Duration: 400 mL/hr / 3 Minutes Line Med Link Info Comment Peripheral IV 11/07/23 20 G Left Antecubital 11/08/23 1639 by Eula Coffey RN -- Peripheral IV 11/09/23 20 G Anterior;Distal;Left;Upper Arm 11/10/23 2318 by Madhav Hernandez RN-- Peripheral IV 11/11/23 22 G Left Hand 11/12/23 0007 by Madhav Hernandez RN -- Timestamps Action Dose / Rate / Duration Route Other Information 11/12/23 0856 Given 2,000 mg 400 mL/hr 3 Minutes intravenous Performed by: Portillo Cordero RN cetirizine (ZyrTEC) tablet 10 mg [[id number]] Ordering Provider: Vicki Rehman NP Status: Dispensed Ordered On: 11/08/23 1417 Start: 11/08/23 1500 Ordered Dose (Remaining/Total): 10 mg (--/--) Route: oral Frequency: Daily Ordered Rate/Order Duration: -- / -- Timestamps Action Dose Route Other Information 11/12/23 0856 Given 10 mg oral Performed by: Portillo Cordero RN Scanned Package: 9431-4938-04 cholecalciferol (VITAMIN D-3) capsule 5,000 Units [[id number]] Ordering Provider: Vicki Rehman NP Status: Dispensed Ordered On: 11/08/231416 Start: 11/08/23 1500 Ordered Dose (Remaining/Total): 5,000 Units (--/--) Route: oral Frequency: Daily Ordered Rate/Order Duration: -- / -- Admin Instructions: Each capsule contains 5,000 units (125 mcg) of cholecalciferol, Timestamps Action Dose Route Other Information 11/12/23 0857 Given 5,000 Units oral Performed by: Portillo Cordero RN Scanned Package: [id number] tamsulosin (FLOMAX) extended release capsule 0.8 mg [[id number]] Ordering Provider: Vicki Rehman NP Status: Dispensed Ordered On: 11/08/23 141 Start: 11/08/23 1800 Ordered Dose (Remaining/Total): 0.8 mg (--/--) Route: oral Frequency: Daily with dinner Ordered Rate/Order Duration: -- / -- Admin Instructions: Do not crush, chew, cut, dissolve, open or otherwise manipulate tablet/capsule. Timestamps Action Dose Route Other Information 11/11/23 1729 Given 0.8 mg oral Performed by: Melissa Eddy RN Scanned Package: 62372-291-96, 47527-902-41 sodium chloride 0.9% flush 0.5-20 mL [[id number]] Ordering Provider: Aston Bragg MD Status: Verified Ordered On: 11/09/23 1620 Start: 11/09/23 1700 Ordered Dose (Remaining/Total): 0.5-20 mL (--/--) Route: intra-catheter Frequency: Every 8 hours scheduled Ordered Rate/Order Duration: -- / -- Admin Instructions: Flush volume based on line type and size. Timestamps Action Dose Route Other Information 11/12/23 0520 Given 10 mL intra-catheter Performed by: Madhav Hernandez RN Scanned Package: [id number] sodium chloride 0.9% flush 0.5-20 mL [[id number]] Ordering Provider: Aston Bragg MD Status: Verified Ordered On: 11/09/231619 Start: 11/09/231619 Ordered Dose (Remaining/Total): 0.5-20 mL (--/--) Route: intra-catheter Frequency: As needed Ordered Rate/Order Duration: -- / -- Admin Instructions: Flush volume based on line type and size. Flush before and after each use. (No admins scheduled or recorded for this medication) ondansetron (ZOFRAN) injection 4 mg [[id number]] Ordering Provider: Vicki Rehman NP Status: Completed (Past End Date/Time) Ordered On: 11/08/231708 Starts/Ends: 11/08/231744 - 11/08/231715 Ordered Dose (Remaining/Total): 4 mg (0) Route: intravenous Frequency: Once Ordered Rate/Order Duration: -- / 2 Minutes Timestamps Action Dose / Duration Route Other Information 11/08/231713 Given 4 mg 2 Minutes intravenous Performed by: Nkechi Gr RN Scanned Package: [address]-2 prochlorperazine (COMPAZINE) injection 5 mg [[id number]] Ordering Provider: Vicki Rehman NP Status: Dispensed Ordered On: 11/08/231708 Start: 11/08/231708 Ordered Dose (Remaining/Total): 5 mg (--/--) Route: intravenous Frequency: Every 6 hours PRN Ordered Rate/Order Duration: -- / 2 Minutes Timestamps Action Dose / Duration Route Other Information 11/09/23 1002 Given 5 mg 2 Minutes intravenous Performed by: Lucio Gaines RN Scanned Package: 55297-188-35 cyclobenzaprine (FLEXERIL) tablet 5 mg [[id number]] Ordering Provider: Vicki Rehman NP Status: Dispensed Ordered On: 11/08/231709 Start: 11/08/231708 Ordered Dose (Remaining/Total): 5 mg (--/--) Route: oral Frequency: 3 times daily PRN Ordered Rate/Order Duration: -- / -- Timestamps Action Dose Route Other Information 11/08/231804 Given 5 mg oral Performed by: Eula Coffey RN Scanned Package: 06270-248-59 ramelteon (ROZEREM) tablet 8 mg [[id number]] Ordering Provider: Nuvia Cantu NP Status: Dispensed Ordered On: 11/08/232037 Start: 11/08/232114 Ordered Dose (Remaining/Total): 8 mg (--/--) Route: oral Frequency: Nightly Ordered Rate/Order Duration: -- / -- Timestamps Action Dose Route Other Information 11/11/232138 Given 8 mg oral Performed by: Madhav Hernandez RN Scanned Package: 61768-956-94 traZODone (DESYREL) tablet 50 mg [[id number]] Ordering Provider: Nuvia Cantu NP Status: Completed (Past End Date/Time) Ordered On: 11/08/232109 Starts/Ends: 11/08/232144 - 11/08/232114 Ordered Dose (Remaining/Total): 50 mg (0/1) Route: oral Frequency: Once Ordered Rate/Order Duration: -- / -- Timestamps Action Dose Route Other Information 11/08/232114 Given 50 mg oral Performed by: Johnie Arredondo RN Scanned Package: [id number] oxyCODONE (ROXICODONE) tablet 5 mg [[id number]] Ordering Provider: Alonso Burks MD Status: Completed (Past End Date/Time) Ordered On: 11/08/232257 Starts/Ends: 11/08/232329 - 11/08/232303 Ordered Dose (Remaining/Total): 5 mg (0/1) Route: oral Frequency: Once Ordered Rate/Order Duration: -- / -- Timestamps Action Dose Route Other Information 11/08/232303 Given 5 mg oral Performed by: Johnie Arredondo RN Scanned Package: 46946-162-11 Lactated Ringer's (LR) bolus 500 mL [[id number]] Ordering Provider: Nuvia Cantu NP Status: Completed (Past End Date/Time) Ordered On: 11/08/23 2315 Starts/Ends: 11/09/23 0000 - 11/09/23 0033 Ordered Dose (Remaining/Total): 500 mL (0/1) Route: intravenous Frequency: Once Ordered Rate/Order Duration: 500 mL/hr / 1 Hours Timestamps Action Dose / Rate / Duration Route Other Information 11/08/23 2333 New Bag 500 mL 500 mL/hr 1 Hours intravenous Performed by: Johnie Arredondo RN Scanned Package: 1220-7619-80 midazolam (VERSED) 1 mg/mL injection [[id number]] Ordering Provider: Honorio Hannon MD Status: Completed (Past End Date/Time) Ordered On: 11/09/23 0808 Frequency: As needed Line Med Link Info Comment Peripheral IV 11/08/23 20 G Left Forearm 11/09/23 0808 by Tamia Schroeder RN -- Timestamps Action Dose Route Other Information 11/09/23 08 Given 1 mg intravenous Performed by: Tamia Schroeder RN fentaNYL (SUBLIMAZE) preservative free injection [[id number]] Ordering Provider: Honorio Hannon MD Status: Completed (Past End Date/Time) Ordered On: 11/09/23 0808 Frequency: As needed Line Med Link Info Comment Peripheral IV 11/08/23 20 G Left Forearm 11/09/23 0808 by Tamia Schroeder RN -- Timestamps Action Dose Route Other Information 11/09/23 08 Given 50 mcg intravenous Performed by: Tamia Schroeder RN lidocaine PF (XYLOCAINE) 10 mg/mL (1 %) preservative free injection [[id number]] Ordering Provider: Honorio Hannon MD Status: Completed (Past End Date/Time) Ordered On: 11/09/23 0809 Frequency: As needed Timestamps Action Dose Route Other Information 11/09/23 0809 Given 4 mL Injection Performed by: Tamia Schroeder RN Comments: R Neck ioversoL (OPTIRAY 350) injection [[id number]] Ordering Provider: Honorio Hannon MD Status: Completed (Past End Date/Time) Ordered On: 11/09/23 0837 Frequency: As needed Timestamps Action Dose Route / Site / Linked Line Other Information 11/09/23 0837 Given 100 mL -- Performed by: Honorio Hannon MD Documented by: Tamia Schroeder RN acyclovir (ZOVIRAX) tablet 400 mg [[id number]] Ordering Provider: Vicki Rehman NP Status: Dispensed Ordered On: 11/09/23 0956 Start: 11/09/23 1030 Ordered Dose (Remaining/Total): 400 mg (--/--) Route: oral Frequency: 2 times daily Ordered Rate/Order Duration: -- / -- Timestamps Action Dose Route Other Information 11/12/23 0856 Given 400 mg oral Performed by: Portillo Cordero RN Scanned Package: [id number] ioversoL (OPTIRAY 350) syringe 100 mL [[id number]] Ordering Provider: Vicki Rehman NP Status: Completed (Past End Date/Time) Ordered On: 11/09/23 120 Starts/Ends: 11/09/23 1208 - 11/09/23 1223 Ordered Dose (Remaining/Total): 100 mL (0/1) Route: intravenous Frequency: Once in imaging Ordered Rate/Order Duration: -- / -- Timestamps Action Dose Route Other Information 11/09/23 1223 Contrast Given 63 mL intravenous Performed by: Silver Magdaleno RT dextrose gel in packet 15 g [[id number]] Ordering Provider: Vicki Rehman NP Status: Verified Ordered On: 11/09/23 1458 Start: 11/09/23 1457 Ordered Dose (Remaining/Total): 15 g (--/--) Route: oral Frequency: Every 15 min PRN Ordered Rate/Order Duration: -- / -- Admin Instructions: If patient is alert and able to eat/drink, give 15 gm glucose or one juice (4 fluid ounces) NOT ORANGE JUICE. After treatment for hypoglycemia, recheck BG followed by treatment every 15 minutes until the BG is greater than 100 mg/dL. Then check BG 1 hour post-treatment. If BG isless than 100 mg/dL, repeat Q15 minute BG checks and treatment. Call MD for each episode of hypoglycemia. (No admins scheduled or recorded for this medication) dextrose (D10W) 10% bolus 250 mL [[id number]] Ordering Provider: Vicki Rehman NP Status: Verified Ordered On: 11/09/231457 Start: 11/09/231456 Ordered Dose (Remaining/Total): 250 mL (--/--) Route: intravenous Frequency: Every 15 min PRN Ordered Rate/Order Duration: 1,000 mL/hr / 15 Minutes Admin Instructions: After treatment for hypoglycemia, recheck BG followed by treatment every 15 minutes until the BG is greater than 100 mg/dL. Then check BG 1 hour post treatment. If BG is less [id number] mg/dL, repeat Q15 minute BG checks and treatment. Call MD for each episode of hypoglycemia. (No admins scheduled or recorded for this medication) glucagon injection 1 mg [[id number]] Ordering Provider: Vicki Rehman NP Status: Verified Ordered On: 11/09/231457 Start: 11/09/231456 Ordered Dose (Remaining/Total): 1 mg (--/--) Route: intramuscular Frequency: Every 30 min PRN Ordered Rate/Order Duration: -- / -- Admin Instructions: After Glucagon is administered, position patient on side if possible to avoid aspiration. Obtain IV access. Follow glucagon treatment with glucose treatment or IV dextrose. After treatment for hypoglycemia, recheck BG followed by treatment every 15 minutes until the BG isgreater than 100 mg/dL. Then check BG 1 hour post treatment. If BG is less than 100 mg/dL, repeat Q15 minute BG checks and treatment. Call MD for each episode of hypoglycemia. Reconstitute 1 mg vial with 1 mL SWFI. Use immediately following reconstitution. (No admins scheduled or recorded for this medication) insulin lispro (HumaLOG, ADMELOG) 100 unit/mL injection 0-10 Units [[id number]] Ordering Provider: Vicki Rehman NP Status: Dispensed Ordered On: 11/09/231457 Start: 11/09/231799 Ordered Dose (Remaining/Total): 0-10 Units (--/--) Route: subcutaneous Frequency: 3 times daily with meals Ordered Rate/Order Duration: -- / -- Admin Instructions: Blood glucose mg/dL: 149 or less: No insulin 150-199: add 2 unit 200-249: add 4 units 250-299: add 6 units 300-349: add 8 units and notify physician for adjustment of insulin orders. 350-399: add 10 units and notify physician for adjustment of insulin orders. Over 400: Notify physician for adjustment of insulin orders. Do NOT hold for NPO Status Timestamps Action Dose Route / Site Other Information 11/12/23 1130 Given 2 Units subcutaneous Right Upper Arm Performed by: Portillo Cordero RN Scanned Package: [id number] insulin lispro (HumaLOG, ADMELOG) 100 unit/mL injection 0-5 Units [[id number]] Ordering Provider: Vicki Rehman NP Status: Dispensed Ordered On: 11/09/23 1458 Start: 11/09/23 2100 Ordered Dose (Remaining/Total): 0-5 Units (--/--) Route: subcutaneous Frequency: Nightly Ordered Rate/Order Duration: -- / -- Admin Instructions: Blood glucose mg/dL: 149 or less: No insulin 150-199: add 1 unit 200-249: add 2 units 250-299: add 3 units 300-349: add 4 units and notify physician for adjustment of insulin orders. 350-399: add 5 units and notify physician for adjustment of insulin orders. Over 400: Notify physician for adjustment of insulin orders. Do NOT hold for NPO Status Timestamps Action Dose Route / Site Other Information 11/11/23 2139 Given 1 Units subcutaneous Left Lower Abdomen Performed by: Madhav Hernandez RN Scanned Package: [id number] senna-docusate (PERICOLACE) 8.6-50 mg per tablet 2 tablet [[id number]] Ordering Provider: Dorie Sofia NP Status: Dispensed Ordered On: 11/10/23 1035 Start: 11/10/23 1115 Ordered Dose (Remaining/Total): 2 tablet (--/--) Route: oral Frequency: 2 times daily Ordered Rate/Order Duration: -- / -- Timestamps Action Dose Route Other Information 11/11/23 0838 Given 2 tablet oral Performed by: Melissa Eddy RN Scanned Package: 1099-5554-80, 4111-2126-11 bisacodyL (DULCOLAX) suppository 10 mg [[id number]] Ordering Provider: Dorie Sofia NP Status: Dispensed Ordered On: 11/10/23 1035 Start: 11/10/23 1115 Ordered Dose (Remaining/Total): 10 mg (--/--) Route: rectal Frequency: Daily Ordered Rate/Order Duration: -- / -- Timestamps Action Dose Route Other Information 11/10/23 1636 Given 10 mg rectal Performed by: Melissa Eddy RN Comments: patientt request Scanned Package: [id number] lactulose 0.67 gram/mL oral solution 20 g [[id number]] Ordering Provider: Dorie Sofia NP Status: Completed (Past End Date/Time) Ordered On: 11/10/23 1634 Starts/Ends: 11/10/23 1715 - 11/10/23 1719 Ordered Dose (Remaining/Total): 20 g (0/1) Route: oral Frequency: Once Ordered Rate/Order Duration: -- / -- Timestamps Action Dose Route Other Information 11/10/23 1719 Given 20 g oral Performed by: Melissa Eddy RN Scanned Package: 1751-1244-47 sodium chloride 0.9% IVPB 0-250 mL [[id number]] Ordering Provider: Dorie Sofia NP Status: Completed (Past End Date/Time) Ordered On: 11/11/23 1009 Starts/Ends: 11/11/23 1045 - 11/11/23 1255 Ordered Dose (Remaining/Total): 0-250 mL (0/1) Route: intravenous Frequency: Once Ordered Rate/Order Duration: -- / -- Admin Instructions: Prime blood tubing and administer amount needed to clear line (usually 50-100 mL) after transfusion complete. Timestamps Action Dose Route Other Information 11/11/23 1255 New Bag 250 mL intravenous Performed by: Melissa Eddy RN Scanned Package: [id number] vancomycin 1,000 mg/200 mL in dextrose 5% (premix) 1,000 mg [[id number]] Ordering Provider: Francisco Javier Aleman NP Status: Dispensed Ordered On: 11/12/23 0758 Start: 11/12/23 1800 Ordered Dose (Remaining/Total): 1,000 mg (--/--) Route: intravenous Frequency: Every 12 hours Ordered Rate/Order Duration: -- / 60 Minutes (No admins scheduled or recorded for this medication) lidocaine PF (XYLOCAINE) 10 mg/mL (1 %) preservative free injection 100 mg [[id number]] Ordering Provider: Nasir Manzanares MD Status: Dispensed Ordered On: 11/12/23 08 Starts/Ends: 11/12/23 08 - 11/13/23 0845 Ordered Dose (Remaining/Total): 10 mL (1) Route: infiltration Frequency: Once Ordered Rate/Order Duration: -- / -- (No admins scheduled or recorded for this medication) traMADoL (ULTRAM) tablet 50 mg [[id number]] Ordering Provider: Nasir Manzanares MD Status: Completed (Past End Date/Time) Ordered On: 11/12/23 0904 Starts/Ends: 11/12/23 0945 - 11/12/23 0915 Ordered Dose (Remaining/Total): 50 mg (0) Route: oral Frequency: Once Ordered Rate/Order Duration: -- / -- Timestamps Action Dose Route Other Information 11/12/23 0915 Given 50 mg oral Performed by: Portillo Cordero RN Scanned Package: [id number] , OT Eval and Treat Last 72 Hours OT Evaluation Row Name 11/10/23 1412 Chart Reviewed Yes -BB Session Type Evaluation -BB OT Received On 11/10/23 -BB Safe Environment Arm band checked;Patient found in supine;Gait belt not utilized, see comment hoyerlift utilized -BB Subjective Agreeable to Therapy -BB Family/Caregiver Present Yes and son -BB Occupational Therapy-Patient Goal pt agreeable to OT POC -BB Precautions Fall risk;Spinal/Back -BB Braces/Orthoses TLSO donned in supine -BB Precaution Comments OT reviewed precautions, pt verbalized understanding -BB Type of Home House -BB Bathroom Shower/Tub Walk-in shower with threshold -BB Bathroom Toilet Standard -BB Bathroom Equipment Toilet raiser -BB Home Mobility Equipment-Available Wheeled walker -BB Home Mobility Equipment-Currently Using Wheeled walker -BB Level of [place] Independent with ADLs;Independent functional transfers;Independent with ambulation;Needs assistance with homemaking -BB Lives With Spouse -BB Receives Help From Spouse/Significant other;Family time checker assist available -BB Driving Yes has not driven for several weeks -BB ADL Assistance Independent pts provided spv in the last few weeks -BB Instrumental ADL (IADL) Assistance -- completed by /family -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 -BB Fall within the last 6 months No -BB ADLS (WDL) X -BB Grooming: Where assessed Chair -BB Grooming: Level of assistance Moderate Assist unable to tolerate in standing -BB Grooming: Assistance with Safety -BB LE Dressing: Where assessed Supine, bed -BB LE Dressing: Level of assistance Dependent -BB Toileting: Where assessed Supine, bed -BB Toileting: Level of assistance Dependent -BB Toilet Transfers Not tested -BB Toilet Transfers Comments 2/2 safety concern -BB Arousal/Alertness Alert;Appropriate responses to stimuli -BB Attention Span Appears intact -BB Current communication Appears Intact -BB Orientation Oriented X4 (person, place, time, situation) -BB Following Commands Follows all commands and directions without difficulty -BB Safety Judgment Good awareness of safety precautions -BB Awareness of Errors Decreased awareness of errors -BB Insight Decreased awareness of deficits -BB Problem Solving Assistance required to generate solutions -BB Compliance/Behavior Easy to engage;Anxious -BB Motor Planning Appears intact UE -BB Balance Yes -BB Static Sitting-Balance Support Feet supported;Bilateral upper extremity supported -BB Static Sitting-Sitting Surface Bed -BB Static Sitting-Level of Assistance Maximum assistance;Minimum assistance -BB Static Sitting-Comment/# of Minutes initial max A 2/2 posterior lean, progressing to min A for steadying when positioned by therapist -BB Bed Mobility Yes -BB Bed Mobility From 1 Supine -BB Bed Mobility Type 1 To and from -BB Bed Mobility to 1 Rolling right;Rolling left -BB Level of Assistance 1 Maximum Assist -BB Bed Mobility Comments 1 max A to position LEs, force production, cues to reach UE towards bed rail -BB Bed Mobility From 2 Supine -BB Bed Mobility Type 2 To -BB Bed Mobility to 2 Edge of Bed -BB Level of Assistance 2 Maximum Assist of 2 -BB Bed Mobility Comments 2 max A Of 2 for log roll, LE maneuvering, and trunk elevation -BB Transfer Yes -BB Transfer From 1 Sit -BB Transfer Type 1 To and from -BB Transfer to 1 Stand -BB Technique 1 Sit to stand;Stand to sit -BB Transfer Device 1 No device -BB Transfer Level of Assistance 1 Dependent -BB Trials/Comments 1 x2 reps of attempted stand. Pt unable to achieve stand on either attempt despite max A for force production, LE block, anterior weight shift, balance. On second attempt, pt able to clear hips for bed -BB Transfer From 2 Bed -BB Transfer Type 2 To -BB Transfer to 2 Chair with arms -BB Technique 2 Lateral -BB Transfer Device 2 Mechanical device -BB Transfer Level of Assistance 2 Dependent -BB Trials/Comments 2 assist of 2 with pia lift -BB RUE Assessment WFL -BB LUE Assessment WFL -BB Putting on and taking off regular lower body clothing 1 -BB Bathing 2 -BB Toileting 1 -BB Putting on and taking off upper body clothing 2 -BB Personal Grooming 2 -BB Eating Meals 3 -BB Total Score (range 6-24) 11 -BB Score Interpretation 29.04 -BB Safe Environment End of Therapy Session Patient left in chair;RN notified;Call light within reach -BB Problem List Decreased ADL independence;Decreased IADL independence;Decreased endurance;Decreased balance;Decreased functional mobility;Pain;Decreased trunk control for functional activities -BB Barriers to Discharge Current ADL Status;Current Mobility Status -BB Plan Plan of care initiated;If this is the last note, consider this the discharge summary -BB OT Recommendation Inpatient Rehab Facility -BB Patient at high risk for Falls;Readmission;Injury due to decreased ability to care for self;Injury due to reduced functional status;Injury due to balance deficits;Injury at home as patient has not returned to prior level of function -BB Recommend Inpatient Rehab/Acute Rehab due to Ability to actively participate in intensive therapy 3hours/day, 5 days/week or 900 minutes per week;Highly motivated to participate in therapy;Not at baseline due to impaired ability to complete ADLs;Impaired ability to complete functional mobility;Requires greater than 25% physical assistance with most mobility tasks;Requires greater than 25% physical assistance with most ADL tasks;Requires multiple therapy disciplines to address functional deficits -BB OT Frequency during current admission 5-7x/wk -BB Treatment/Interventions during current admission ADL/IADL retraining;Balance Training;Bed mobility;Compensatory technique education;Endurance training;Functional activity;Functional mobility training;Functional transfer training;Strengthening;Therapeutic activity;Therapeutic exercise;Transfer traini ng -STROM OT - Next Appointment 11/12/23 -BB OT - OK to Discharge No -BB OT Evaluation Complete Yes -BB User Jones (r) = Recorded By, (t) = Taken By, (c) = Cosigned By Initials Name Effective Dates Leila Marcano OT 08/28/19 - OT Treatment No documentation. OT Notes 11/10/2023 3:42 PM Progress Notes signed by Leila Vela OT , PT Eval and Treat Last 72 Hours PT Evaluation Row Name 11/10/23 1436 Chart Reviewed Yes -AR Session Type Evaluation Co-Eval with OT -AR Safe Environment Patient found in supine;Arm band checked -AR Subjective Agreeable to Therapy -AR Family/Caregiver Present Yes spouse and son -AR Physical Therapy-Patient Goal to get better -AR Precautions Spinal/Back;Fall risk -AR Braces/Orthoses TLSO donned in supine -AR Precaution Comments reviewed precautions. PPE worn: mask, gloves -AR Type of Home House -AR Home Layout One level -AR Home Access Stairs to enter with rails -AR Entrance Stairs-Rails Right -AR Entrance Stairs-Number of Steps 2 -AR Home Mobility Equipment-Available Wheeled walker -AR Home Mobility Equipment-Currently Using Wheeled walker -AR Additional Comments patient was ambulating with walker following d/c from hospital, was performing ADLs with supervision -AR Level of [place] Independent functional transfers;Independent with ambulation -AR Lives With Spouse -AR Receives Help From Spouse/Significant other;Family FT assist -AR Fall within the last 6 months No -AR Activity Tolerance Comments luis angel: hard -AR Pain Assessment No/denies pain -AR Arousal/Alertness Alert;Appropriate responses to stimuli -AR Orientation Oriented X4 (person, place, time, situation) -AR Following Commands Follows all commands and directions without difficulty -AR Light Touch WFL BLE -AR Numbness/Tingling No BLE -AR Balance Yes -AR Static Sitting-Balance Support Feet supported;Bilateral upper extremity supported -AR Static Sitting-Sitting Surface Bed -AR Static Sitting-Level of Assistance Maximum assistance;Minimum assistance -AR Static Sitting-Comment/# of Minutes initial max A due to posterior lean, progressed to min A with positioning -AR Bed Mobility Yes -AR Bed Mobility From 1 Supine -AR Bed Mobility Type 1 To and from -AR Bed Mobility to 1 Rolling right;Rolling left -AR Level of Assistance 1 Maximum Assist -AR Bed Mobility Comments 1 assist to position BLE, force production to rotate trunk, log roll with HOBflat -AR Bed Mobility From 2 Supine -AR Bed Mobility Type 2 To -AR Bed Mobility to 2 Edge of Bed -AR Level of Assistance 2 Maximum Assist assist of 2 -AR Bed Mobility Comments 2 assist to maneuver BLE and elevate trunk, position hips; log roll with HOB flat -AR Transfer Yes -AR Transfer From 1 Sit -AR Transfer Type 1 To and from -AR Transfer to 1 Stand -AR Technique 1 Sit to stand;Stand to sit -AR Transfer Device 1 No device -AR Transfer Level of Assistance 1 Dependent assist of 2 -AR Trials/Comments 1 assist for force production, blocking BLE, anterior weight shift, balance; able to clear hips second attempt -AR Transfer From 2 Bed -AR Transfer Type 2 To -AR Transfer to 2 Chair with arms -AR Technique 2 Lateral -AR Transfer Device 2 Mechanical device -AR Transfer Level of Assistance 2 Dependent -AR Trials/Comments 2 use of pia lift -AR Ambulation No -AR Ambulation Comments 1 no formal balance assessment due to assist level needed with mobility -AR RLE Assessment X -AR R Hip ABduction 0/5 -AR R Hip ADduction 0/5 -AR R Knee Flexion 0/5 -AR R Knee Extension 1/5 -AR R Ankle Dorsiflexion 2/5 -AR R Ankle Plantar Flexion 2/5 -AR LLE Assessment X -AR L Hip ABduction 0/5 -AR L Hip ADduction 0/5 -AR L Knee Flexion 0/5 -AR L Knee Extension 0/5 -AR L Ankle Dorsiflexion 2-/5 -AR L Ankle Plantar Flexion 2-/5 -AR Other PT Comments Co-Evaluation with OT. Patient agreeable to therapy. Performed bed mobility with patient and sitting EOB. Transferred to chair with use of pia lift. Patient demonstrates limited active movement BLE. Patient motivated to work with therapy and agreeable to PT POC and goals. -AR How much difficulty does the patient have: Turning over in bed 2 -AR How much difficulty does the patient currently have: Sitting down and standing up from a chair witharms? 1 -AR How much difficulty does the patient have: Moving from lying on back to sitting on the side of the bed? 2 -AR How much difficulty does the patient have: Moving to and from a bed to a chair including wheelchair? 1 -AR How much help does the patient currently need: Walk in hospital room? 1 -AR How much help from another person does the patient currently need: Climbing 3-5 steps with a railing? 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, c/f cauda equina s/p T5-L5 laminectomies with hematoma evacuation, dural tear repair results in above listed activity deficits and impairments which prevent full participation in home and community mobility -AR Barriers to Discharge Current Mobility Status;Inaccessible home environment;Home environment challenged -AR Plan Plan of care initiated;If this is the last note, consider this the discharge summary -AR PT Recommendation/Plan Inpatient Rehab Facility -AR Patient at high risk for Falls;Readmission;Injury due to decreased ability to care for self;Injury due to reduced functional status;Injury due to balance deficits;Injury at home as patient has not returned to prior level of function -AR Recommend Inpatient Rehab/Acute Rehab due to Ability to actively participate in intensive therapy 3hours/day, 5 days/week or 900 minutes per week;Highly motivated to participate in therapy;Impaired ability to complete functional mobility;Likely to return to the community at discharge with support system in place;Requires greater than 25% physical assistance with most mobility tasks;Requires multiple therapy disciplines to address functional deficits;Patient and caregiver require specialized skilled training due to new level of function/diagnosis -AR PT Frequency during current admission 5-7x/wk -AR Treatment/Interventions during current admission Balance Training;Bed mobility;Endurance training;Functional activity;Functional transfer training;Therapeutic exercise;Transfer training;Therapeutic ac tivity;Strengthening;Positioning -AR PT Evaluation Complete Yes -AR User Jones (r) = Recorded By, (t) = Taken By, (c) = Cosigned By Initials Name Effective Dates AR Javad Sow, PT 07/06/21 - PT TREATMENT (last 168 hours) PT Treatment Row Name 11/12/23 0948 PT Last Visit Session Type Treatment -MR Safe Environment Arm band checked;Gait belt not utilized, see comment -MR Subjective Agreeable to Therapy -MR Family/Caregiver Present No -MR Precautions Precautions Spinal/Back;Fall risk -MR Weight Bearing Restrictions No -MR Braces/Orthoses TLSO -MR Precaution Handout Issued No -MR Activity Tolerance Activity Tolerance Comments Luis Angel: -MR Pain Assessment Pain Assessment 0-10 -MR Cognition Arousal/Alertness Alert;Appropriate responses to stimuli -MR Orientation Oriented X4 (person, place, time, situation) -MR Following Commands Follows all commands and directions without difficulty -MR Compliance/Behavior Easy to engage -MR User Jones (r) = Recorded By, (t) = Taken By, (c) = Cosigned By Initials Name Effective Dates MR Radha Dunlap, PT 07/22/20 - PT Notes 11/10/2023 5:00 PM Progress Notes signed by Javad Sow, PT , ADT Orders Admission, Transfer, Discharge Orders (72h ago, onward) Start Ordered 11/09/23 1208 Transfer patient to new unit Once (Routine) Question: ([facility]) Service: Answer: Ortho 11/09/23 1208 , Wound Info Only Active Wound Assessment Active Wound / Pressure ulcer / Guzman / Negative Pressure Wound / Incision Negative Pressure Wound Therapy Mid-line Back Placement date 11/08/23 Site Back Placement time 1040 Days 4 Inserted by: Dr. Vu Wound Type: Surgical incision Location Orientation: Mid-line Assessments Row Name 11/12/23 0800 11/12/23 0000 11/11/23 1900 11/11/23 0800 11/10/23 2100 Site Assessment -- -- BIBI BIBI BIBI Carolin-wound Assessment -- -- BIBI BIBI BIBI Unit Type -- -- -- Ulta vac Ulta vac Dressing/Foam Type -- -- Black foam -- Black foam Cycle -- -- On;Continuous Continuous;On On;Continuous Target Pressure (mmHg) -- -- 125 125 125 Dressing Status -- -- Clean, dry, intact Clean, dry, intact Clean, dry, intact Drain output (mL) 0 mL 0 mL 0 mL -- -- Net Output (mL) 0 mL 0 mL 0 mL -- -- Wound 10/27/23 Rash Posterior Buttocks redness to buttocks Date First Assessed 10/27/23 Site Buttocks Time First Assessed 0900 Days 16 Present on Hospital Admission: No Wound Type: Rash Location Orientation: Posterior Wound Description (Comments): redness to buttocks Assessments Wound 10/27/23 Rash Other (Comment) Generalized red blotchy blanchable rash Date First Assessed 10/27/23 Site Generalized Time First Assessed 0900 Days 16 Present on Hospital Admission: No Wound Type: Rash Location Orientation: Other (Comment) Generalized Wound Description (Comments): red blotchy blanchable rash Assessments Surgical Site 10/23/23 Back Date First Assessed 10/23/23 Site Back Time First Assessed 1748 Days 19 Assessments Row Name 11/12/23 0800 11/12/23 0000 11/11/23 1900 11/11/23 0800 11/10/23 2100 Site Assessment -- -- BIBI BIBI BIBI Carolin-wound Assessment -- -- BIBI BIBI BIBI Closure -- -- Unable to assess Unable to assess Unable to assess Drainage Amount -- -- None None None Drainage Odor -- -- No odor -- No odor Dressing Status -- -- Clean, dry, intact Clean, dry, intact Clean, dry, intact Dressing -- -- Vacuum dressing Vacuum dressing Vacuum dressing , Vitals Info Only Vital Signs 11/11 0711/12 0659 11/12 0700 11/12 1151 Most Recent Temp (??C) 36.4 - 36.7 36.4 (97.6) 11/12 0400 Pulse 58 - 77 69 - 77 77 11/12 947 Resp 15 - 21 15 - 22 22 11/12 0848 SpO2 (%) 97 - 100 100 100 11/12 947 BP 117/64 - 164/83 138/84 - 141/78 138/84 11/12 0848 MAP (mmHg) 78 - 105 93 - 95 95 11/12 947 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 * Plan of Care - Melissa Eddy RN - 11/11/2023 5:58 PM CST Goals: Clinical Goals for the Shift: VSS, I/Os, pain management, safety, q2 neuro Summary: BP 164/83 Pulse 61 Temp 36.7 ??C (98 ??F) (Oral) Resp 19 Ht 172.7 cm (5' 7.99 ) Wt 88.6 kg (195 lb 5.2 oz) SpO2 100% BMI 29.71 kg/m?? Lidocaine gtt discontinued. Oxycontin 10mg given x1. Good pain relief. Incontinent of medium stool today. Q2 neuro completed. Has sensation to lower extremities but can't differentiate from touch andsharp touch. Up to chair with TLSO and mechanical lift. 1 unit PRBC given. Problem: Activity: Goal: Mobility will improve Outcome: [...] to fullest extent possible Outcome: Progressing Problem: Health Behavior: Goal: Understanding of discharge needs will improve Outcome: Progressing Problem: Lack of [...] Pain level will decrease Outcome: Progressing Problem: Activity: Goal: Ability to return to normal activity level will improve Outcome: Progressing Problem: Lack of Knowledge: Goal: Knowledge of the prescribed therapeutic regimen will improve Outcome: Progressing Problem: Coping: Goal: Ability to cope will improve Outcome: Progressing Problem: Health Behavior: Goal: Identification of resources available to assist in meeting health care needs will improve Outcome: Progressing Problem: Sensory: Goal: Pain level will decrease Outcome: Progressing Problem: Lack of Knowledge: Goal: Ability to state ways to decrease the risk of falls will improve Outcome: Progressing 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 * Plan of Care - Melissa Eddy RN - 11/10/2023 6:26 PM CST Goals: Clinical Goals for the Shift: VSS, I/Os, pain management, safety, q2 neuro Summary: BP 152/88 Pulse 78 Temp 36.7 ??C (98 ??F) Resp 17 Ht 172.7 cm (5' 7.99 ) Wt 88.6kg (195 lb 5.2 oz) SpO2 100% BMI 29.71 kg/m?? Pt up to chair with TLSO brace on for 2hrs. Appetite fair. No bm today. Passing gas. Suppository and lactulose given. Lidocaine gtt controlling pain. 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 (11/10/23 1503) Current Situation: Current Situation Living Arrangements: Spouse/significant other Type of Residence: Private residence Income: Employed, [employer]/Pension Income Comment: Patient works full-time. Spouse recieves snf income and SS. Education Level : Advanced College Degree How do you Pay for Medication: Insurance benefits Current Transportation: Own vehicle What do you do with your Free Time: Patient enjoys traveling. (11/10/23 1503) Legal History: Legal History Legal Information : No legal issues (11/10/23 1503) Support Systems and Spirituality: Support Systems and Spirituality Support System: Spouse, Children Spouse Name/Contact Information: Val Evans Spouse [phone] Children Name/Contact Information: Marcial Evans Son [phone],Stefan Evans Son [phone], Mary Pina Daughter [phone] Do you have a Sikhism Preference or Affiliation?: Yes Preference/Affiliation : Atheist Are there any Sikhism Practices that are important to maintain while admitted?: No Do you have Cultural Factors that are important to you?: No Description of Childhood: Good History of physical abuse? : No History of physically abusing others? : No History of sexual abuse?: No History of sexually abusing others? : No History of Mental/Emotional Abuse? : No (11/10/23 1503) Strengths, Assets, Liabilities and Stressors: Strengths, Assets, Liabilities, and Stressors Strengths (Must Choose Two): Assessment of patient optimism that change can occur, Setting and pursuing goals, Exercising self-direction, Vocational interests, i.e., hobbies, Interpersonal relationships and supports,i.e., family, friends, peers, Access to housing/residential stability, Steady employment, Financial stability Patient Assets: Use of Supports, Insured, Income, Transportation, Home, Supportive friends, Supportive family, Employed, Education, MD Hope and Strength during Difficult Times: Family Does Pt have access to Employee Assistance Program: No (11/10/23 1503) SDOH Transportation Needs: No Transportation Needs (11/10/2023) PRAPARE - Transportation Lack of Transportation (Medical): No Lack of Transportation (Non-Medical): No Financial Resource Strain: Low Risk (11/10/2023) Overall Financial Resource Strain (CARDIA) Difficulty of Paying Living Expenses: Not hard at all Housing Stability: Low Risk (11/10/2023) Housing Stability Vital Sign Unable to Pay for Housing in the Last Year: No Number of Places Lived in the Last Year: 1 Unstable Housing in the Last Year: No Social Connections: Moderately Isolated (10/31/2023) Social Connection and Isolation Panel [NHANES] Frequency of Communication with Friends and Family: More than three times a week Frequency of Social Gatherings with Friends and Family: More than three times a week Attends Sikhism Services: Never Active Member of Clubs or Organizations: No Attends Club or Organization Meetings: Never Marital Status: Food Insecurity: No Food Insecurity (11/10/2023) Hunger Vital Sign Worried About Running Out [...] Binge Drinking: Never PHQ Screening Over the last 2 weeks, [...] Mental Health & Trauma History Chemical Dependency: Patient states he drinks a few glasses of wine a week but denies any concerns for EtOH use. Patient states he uses THC edibles to assist with sleeping. Patient denies any tobaccouse in 40 years. Mental Health: Patient denies any mental health concerns. (11/10/23 1503) Risk to Self and Others: Risk to Self and Others Violence risk to self in past 6 months? : No Self Harm/Suicidal Ideation Plan: No Previous Self Harm/Suicidal Attempts: No Violence risk to others in past 6 months? : No Any lifetime risk of violence to others? : No Current Plans to Harm Another: No Previous Plans to Harm Another: None reported (11/10/23 1503) Impressions and Recommendations: Patient is a 73 y.o. male presented to the ICU with chief complaint of abdominal pain, BLE numbness/ paralysis. Patient admitted to the hospital for a chief complaintof sudden paralysis. SW was consulted due to high risk of readmission. SW met with patient at bedside and patient was pleasant and agreeable to social work intervention. Patient appears to be a reliable historian, demonstrates a logical thought process, and is forthcoming with information. SW discussed finances, medical bills, social support, mental health, substance use, and transportation with patient. Patient denies any SDOH concerns at this time. Patient denies any substance use or mental health concerns at this time. Patient's family is their main source for support and Val Evans (Spouse) ([phone]) is identified as surrogate decision maker. Predictive Model Details 29% (High Risk) Factor Value Calculated 11/10/2023 12:02 23% Number of active inpatient medication orders 43 Risk of Unplanned Readmission Model 9% Number of ED visits in last six months 2 8% Diagnosis of cancer present 7% ECG/EKG order present in last 6 months 7% Latest calcium low (8.3 mg/dL) 6% Encounter of ten days or longer in last year present 6% Restraint order present in last 6 months 5% Imaging order present in last 6 months 5% Latest hemoglobin low (8.6 g/dL) 5% Phosphorous result present 4% Age 73 4% Number of hospitalizations in last year 1 3% Active anticoagulant inpatient medication order present 3% Active corticosteroid inpatient medication order present 2% Current length of stay 2.539 days 2% Charlson Comorbidity Index 2 2% Future appointment scheduled 1% Active ulcer inpatient medication order present Social work to remain available as needed. Case management following for discharge. GEN Alvarez Laboratory Clerk Please refer to [facility] chart for contact information 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 * Plan of Care - Son Brown RN - 11/10/2023 4:46 AM CST Goals: Clinical Goals for the Shift: VSS, I/Os, pain management, safety, q2 neuro Summary: VSS, I/Os documented, pain managed, safety maintained, q2 neuro checks completed Problem: Activity: Goal: Mobility will improve Outcome: [...] to fullest extent possible Outcome: Progressing Problem: Health Behavior: Goal: Understanding of discharge needs will improve Outcome: Progressing Problem: Lack of [...] Pain level will decrease Outcome: Progressing Problem: Activity: Goal: Ability to return to normal activity level will improve Outcome: Progressing Problem: Lack of Knowledge: Goal: Knowledge of the prescribed therapeutic regimen will improve Outcome: Progressing Problem: Coping: Goal: Ability to cope will improve Outcome: Progressing Problem: Health Behavior: Goal: Identification of resources available to assist in meeting health care needs will improve Outcome: Progressing Problem: Sensory: Goal: Pain level will decrease Outcome: Progressing [...] Lack of Knowledge: Goal: Ability to state signs and symptoms to report to health care provider will improve Outcome: Progressing Goal: Understanding of ways to prevent infection will improve Outcome: Progressing Problem: Nutritional: Goal: Nutritional status will improve Outcome: Progressing Problem: Physical Regulation: Goal: Diagnostic test results will improve Outcome: Progressing Goal: Will remain free from infection Outcome: Progressing Goal: Ability to maintain vital signs within normal range will improve Outcome: Progressing Problem: Respiratory: Goal: Ability to maintain normal respiratory secretions will improve Outcome: Progressing Problem: Skin Integrity: Goal: Demonstration of wound healing without infection will improve Outcome: Progressing Goal: Complications related to intravenous access or infusion will be avoided or minimized Outcome: Progressing Problem: Activity: Goal: Ability to avoid complications of mobility impairment will improve Outcome: Progressing Goal: Ability to tolerate increased activity will improve Outcome: Progressing Problem: Bowel/Gastric: Goal: Gastrointestinal status for postoperative course will improve Outcome: Progressing Problem: Lack of Knowledge: Goal: Ability to verbalize activity precautions or restrictions will improve Outcome: Progressing Goal: Knowledge of the prescribed therapeutic regimen will improve Outcome: Progressing Problem: Coping: Goal: Ability to verbalize feelings will improve Outcome: Progressing Problem: Fluid Volume: Goal: Will maintain adequate fluid volume Outcome: Progressing Problem: Health Behavior: Goal: Identification of resources available to assist in meeting health care needs will improve Outcome: Progressing Problem: Physical Regulation: Goal: Neurologic status will improve Outcome: Progressing Goal: Ability to maintain clinical measurements within normal limits will improve Outcome: Progressing Problem: Respiratory: Goal: Ability to maintain adequate ventilation will improve Outcome: Progressing Problem: Sensory: Goal: Pain level will decrease Outcome: Progressing Problem: Skin Integrity: Goal: Signs of wound healing will improve Outcome: Progressing Goal: Will remain free from infection Outcome: Progressing 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 * Plan of Deny - Kasey Emmanuel RN - 11/09/2023 4:05 PM ELEC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 Problem: Lack of Knowledge: Goal: Understanding of [...] to fullest extent possible Outcome: Progressing Problem: Health Behavior: Goal: Understanding of discharge needs will improve Outcome: Progressing Problem: Lack of [...] Pain level will decrease Outcome: Progressing Problem: Activity: Goal: Ability to return to normal activity level will improve Outcome: Progressing Problem: Lack of Knowledge: Goal: Knowledge of the prescribed therapeutic regimen will improve Outcome: Progressing Problem: Coping: Goal: Ability to cope will improve Outcome: Progressing Problem: Sensory: Goal: Pain level will decrease Outcome: Progressing Problem: Safety: Goal: Will remain free from falls Outcome: Progressing Goal: Will remain free from injury from falls Outcome: Progressing Goal: Will remain free from falls and injury in home environment Outcome: Progressing Problem: Lack of Knowledge: Goal: Ability to state signs and symptoms to report to health care provider will improve Outcome: Progressing Goal: Understanding of ways to prevent infection will improve Outcome: Progressing Problem: Physical Regulation: Goal: Will remain free from infection Outcome: Progressing Problem: Respiratory: Goal: Ability to maintain normal respiratory secretions will improve Outcome: Progressing Problem: Skin Integrity: Goal: Complications related to intravenous access or infusion will be avoided or minimized Outcome: Progressing Problem: Activity: Goal: Ability to tolerate increased activity will improve Outcome: Progressing Problem: Coping: Goal: Ability to verbalize feelings will improve Outcome: Progressing Problem: Physical Regulation: Goal: Neurologic status will improve Outcome: Progressing Problem: Skin Integrity: Goal: Signs of wound healing will improve Outcome: Progressing Goals: Clinical Goals for the Shift: IR for IVC filter, pain control Summary: Patient went to IR for IVC filter placement. Patient successfully transferred to [facility]. Patient reports minimal pain at this time. 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 * Initial Assessments - Melissa Barker RN - 11/09/2023 3:32 PM CST CM Initial Assessment Interview Note Information Obtained From: Other (Specify) Name: per chart review (11/09/231512) Admission Source: OSH Impression: 73 year old male admitted for paralysis of both lower limbs Plan Includes: Discharge patient to appropriate level of care when medically stable. clubhouse manager will continue to follow and assess for discharge needs. Primary Source of Transportation: Does the patient need discharge transport arranged?: No (family) (11/09/231512) Health Insurance Coverage: [facility] Medicare Prescription Coverage: yes Pharmacy: [facility] [address] [place] [phone] [address] [address] [facility] [address] Primary Care Provider: Rl Medina DO Prior to Admission: Primary Caregiver: Self Support System: Spouse/Significant Other, Children Home Care Services: No (recent discharge from [facility] on 10/30 and unable to find home care at that time) Durable Medical Equipment: Cane (single prong), Walker (wheeled) Living Arrangements: Spouse/significant other Type of Residence: Private residence Medication management: Independent (11/09/231512) Potential discharge needs include: Home Health: Physical therapy, Occupational therapy, group home (11/09/231512) Behavioral Health Services: Behavioral Health Services: No (11/09/231512) Patient expects to be Discharged to: Private residence, (11/09/231512) Additional Information: Patient lives with spouse in a private residence. Address and phone number verified with face sheet. Independent with ADLs at baseline, denies home health and DME prior to admission. Support and transportation at discharge per spouse. Role of case management explained. Patient's Identified Problem/Goal Problem: Ensure acute [...] Collaboration with patient, MD, direct care nurse, Laboratory Clerk, and other members of the health care team to assure needed interventions completed. 2. Return patient to optimal level of self-care post discharge. 3. Manager Molecular will follow for Discharge Planning - interventions as needed 4. Anticipated level of care at discharge 5. Planned Discharge Disposition Based on a comprehensive family assessment, assistance with instrumental activities of daily livingafter discharge will be provided by patient/family Through the course of our work I determined that the patient/family possesses the skill and abilityto provide and monitor the care of the patient when he or she returns home. Patient/family has the capacity to provide/monitor/arrange for the care of the patient. Finally, we determined that patient/family has the knowledge of available resources and that combining them with their existing resources will suffice to sustain and care for the patient when he or she returns home. The treatment team is aware of this information. All are in agreement with the aftercare plan. Melissa Barker RN 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 * Significant Event - Vicki Rehman NP - 11/09/2023 2:09 PM ELEC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 CHUGG-OUT (SICU to OU/Floor Transfer) SICU MD HANDOFF 73 y.o male with PMH prostate CA, HTN, lumbar radiculopathy with recent hospitalization for UTI, L ureteral stone and L4-5 PSF c/b seizure/code blue in PACU (ROSC after 2min CPR and Epi x1), CT H small bilat SDH and CT PE bilat PEs, d/c home on therapeutic Lovenox. Pt presented to OSH 11/07 with acute abd pain and BLE numbess/paralysis from waist down. TT ED, MRI notable for dorsal epidural fluid collection from L4-5 distally to T5-6 proximally causing severe canal stenosis with spinal cord and cauda equina compression. Emergently proceeding to OR. Abbreviated Hospital Course: 11/08/23: s/p Laminectomy and thoracic decompression T5-L5, dural repair (Ortho spine) 11/09/23: s/p IVC filter in IR, CT PE with interval decrease in burden of bilateral PE's MD Consults: [] ACCS [] Cardiology [] Endo [] ENT [] GI [] Hand [] ID [] Neuro [x] NSGY [] Ortho [] Pain [] PRS [] Renal [] Spine-NSGY [] Spine-Ortho [] Urology [] Other: Hematology, IR Rehab/Ancillary Consults: [] BI (trauma patient with LOC) [] Chemical dependency [x] PT [x] OT [] Speech [] PM&R [] SMART (stroke patient) [] Wound care SITUATIONAL AWARENESS PERTINENT physical exam findings on day of transfer: General: No Acute Distress Neuro: A&Ox4, follows commands BUE, BUE 5/5, LLE 2nd toe movement, RLE movement of all toes andfoot, sensation intact x4 Cardiac: S1 and S2, Regular Rate and Rhythm, no M/G/R Pulmonary: Lungs clear/diminished to auscultation, respirations even/unlabored on NC Abdominal: Soft/Nontender/Nondistended, normoactive bowel sounds Extremities: No edema, Pulses Present and Palpable Drains: Harris, right back surgical drains x2 to gravity with small amount serous output, wound vac in place Wounds: See RN flowsheet New findings that warrant follow-up and pending studies: [x] Yes--describe: 11/09 CT PE with interval decrease in burden of bilateral pulmonary emboli with a few residual nonocclusive, resolving acute/subacute pulmonary emboli in the right lower lobe segmental arteries and small pulmonary infarcts in the anterior right upper and middle lobes. No new pulmonary emboli or CT evidence of right heart strain [] None Important changes to home medications: [x] Home medications stopped/on hold: Coenzyme Q10, Lovenox, irbesartan, ketoralac, mounjaro, omeprazole [] Dose changes: [] No notable changes New medications to consider stopping prior to hospital discharge: [x] New antipsychotic (started for ICU delirium): 11/08/23 Trazadone 50 mg x1 [] Other: Disposition/Planning: Eval by LTAC/Rehab/SNF [] Yes [] No [x] N/A Facility: [facility] Contact: CURRENT ANTICOAGULANT THERAPY [] VTE Prophylaxis [] Heparin [] Lovenox [x] SCDs [] IVC Filter [] Other: [] None - Reason: [] Therapeutic Anticoagulation Indication: [] Heparin [] Lovenox [] Other: Any previous issues with tolerating anticoagulants? [x] Yes [] No Describe: Cauda equina Venous duplex performed? [x] Yes ---> Most recent findings: 11/08/23 LED negative [] No CURRENT ANTIMICROBIAL THERAPY [] N/A - No current antimicrobial therapy Vancomycin Indication: Surgical prophylaxis Start Date: 11/08 Planned Duration: 24 hours Cefazolin Indication: Surgical prophylaxis Start Date: 11/08 Planned Duration: 24 hours LINES/DRAINS/AIRWAYS PRESENT Peripheral IV 11/08/23 16 G Left Wrist (Active) Number of days: 1 Peripheral IV 11/08/23 22 G Posterior;Right Hand (Active) Number of days: 1 Peripheral IV 11/08/23 20 G Left Forearm (Active) Number of days: 1 Peripheral IV 11/09/23 20 G Anterior;Distal;Left;Upper Arm (Active) Number of days: 0 Closed/Suction/Open Drain 1 Right Back Other (Comment) (Active) Number of days: 1 Closed/Suction/Open Drain 2 Right Back (Active) Number of days: 1 TO-DO LIST PRIOR TO TRANSFER Make sure the following monitors or precautions are ordered if indicated: Telemetry [] Yes [x] No Continuous pulse oximetry [] Yes [x] No KYLE precautions [] Yes [x] No Difficult airway [] Yes [x] No Trach orders/signage [] Yes [x] No Size/Type: Date placed: Did patient require insulin while in SICU? [] Yes, scheduled insulin [x] Yes, sliding scale only ----> d/c SICU insulin and order floor sliding scale insulin [] No ----> d/c SICU insulin and blood glucose checks Is the patient receiving TPN? [] Yes ----> [] Today's bag is ordered [x] No Central line necessary? [] Yes [] No [x] N/A Groin line necessary? [] Yes [] No [x] N/A [x] Discontinue K/Mg/Phos repletion order (if applicable) [x] Discontinue stress ulcer prophylaxis if no longer indicated [x] Discontinue ICU alcohol withdrawal order set (meds and nursing communications -- replace with floor order set if ongoing therapy needed) [x] Signed & Held orders reconciled (all orders either released or discontinued) [x] Sign-out was called to Kevin of the Ortho spine service. QUESTIONS? Call [phone] ([phone]). 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 * Plan of Care - Damaris Maxwell LCSW - 11/09/2023 11:44 AM CST Patient flagged as a 30 day readmission. Patient is A&Ox1 and no family present at bedside. PerRN, patient's spouse intends to visit this afternoon. SW will attempt to complete assessment with spouse this afternoon. GEN Munoz, HR RECEPTIONIST 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 * Plan of Care - Melissa Barker RN - 11/09/2023 10:38 AM ELEC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 CM received call from Medina from [facility] phone: [phone] ext [phone]. Wants to know if patient will need a swing bed on discharge? CM will follow for dc recommendations. Melissa Barker RN Case Management 11/09/2023 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 * Post-Procedure Note - Honorio Hannon MD - 11/09/2023 8:37 AM ELEC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 Radiology Brief Post Procedure Note Attending: Verena Principal Librarian: Riddhi Sedation/Anesthesia: Min Sedation Pre-Op/Pre-Procedure Diagnosis: Pulmonary embolism Post-Op/Post-Procedure Diagnosis: same Procedure Performed: IVC filter placement Procedure Findings: successful placement of infrarenal Tulip IVC filter Complications: None Estimated Blood Loss: < 30 ml Specimens: None Condition: Stable Full report to follow. 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 * Plan of Care - Johnie Arredondo RN - 11/08/2023 11:21 PM ELEC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 Goals: Clinical Goals for the Shift: pain control, sleep hygiene Summary: Problem: Activity: Goal: Mobility will improve 11/08/2023 232 by Johnie Arredondo RN Outcome: Not Progressing 11/08/2023 2320 by Johnie Arredondo RN Outcome: Not Progressing Problem: Lack of Knowledge: Goal: Understanding of ways to prevent future skin breakdown will improve 11/08/20232320 by Johnie Arredondo RN Outcome: Not Progressing 11/08/20232319 by Johnie Arredondo RN Outcome: Not Progressing Goal: Ability to identify appropriate dietary choices will improve 11/08/20232320 by Johnie Arredondo RN Outcome: Not Progressing 11/08/20232319 by Johnie Arredondo RN Outcome: Not Progressing Problem: Nutritional: Goal: Dietary intake will improve 11/08/20232320 by Johnie Arredondo RN Outcome: Not Progressing 11/08/20232319 by Johnie Arredondo RN Outcome: Not Progressing Goal: Ability to maintain a balanced intake and output will improve 11/08/20232320 by Johnie Arredondo RN Outcome: Not Progressing 11/08/2023 232 by Johnie Arredondo RN Outcome: Not Progressing Problem: Skin Integrity: Goal: Risk for impaired skin integrity will decrease 11/08/20232320 by Johnie Arredondo RN Outcome: Not Progressing 11/08/20232319 by Johnie Arredondo RN Outcome: Not Progressing Goal: Ability to demonstrate warm and dry skin will improve 11/08/20232320 by Johnie Arredondo RN Outcome: Not Progressing 11/08/2023 232 by Johnie Arredondo RN Outcome: Not Progressing Goal: Circulation will improve to fullest extent possible 11/08/20232320 by Johnie Arredondo RN Outcome: Not Progressing 11/08/20232319 by Johnie Arredondo RN Outcome: Not Progressing Problem: Health Behavior: Goal: Understanding of discharge needs will improve 11/08/20232320 by Johnie Arredondo RN Outcome: Not Progressing 11/08/20232319 by Johnie Arredondo RN Outcome: Not Progressing Problem: Lack of Knowledge: Goal: Ability to develop a pain control plan will improve 11/08/20232320 by Johnie Arredondo RN Outcome: Not Progressing 11/08/20232319 by Johnie Arredondo RN Outcome: Not Progressing Goal: Ability to identify pain intensity on a pain scale and rate it consistently will improve 11/08/20232320 by Johnie Arredondo RN Outcome: Not Progressing 11/08/20232319 by Johnie Arredondo RN Outcome: Not Progressing Goal: Ability to notify healthcare provider of pain before it becomes unmanageable or unbearable will improve 11/08/20232320 by Johnie Arredondo RN Outcome: Not Progressing 11/08/20232319 by Johnie Arredondo RN Outcome: Not Progressing Problem: Medication: Goal: Satisfaction with pain management regimen will improve 11/08/20232320 by Johnie Arredondo RN Outcome: Not Progressing 11/08/20232319 by Johnie Arredondo RN Outcome: Not Progressing Problem: Sensory: Goal: Ability to identify factors that increase the pain will improve 11/08/20232320 by Johnie Arredondo RN Outcome: Not Progressing 11/08/20232319 by Johnie Arredondo RN Outcome: Not Progressing Goal: Pain level will decrease 11/08/20232320 by Johnie Arredondo RN Outcome: Not Progressing 11/08/20232319 by Johnie Arredondo RN Outcome: Not Progressing Problem: Activity: Goal: Ability to return to normal activity level will improve 11/08/20232320 by Johnie Arredondo RN Outcome: Not Progressing 11/08/20232319 by Johnie Arredondo RN Outcome: Not Progressing Problem: Lack of Knowledge: Goal: Knowledge of the prescribed therapeutic regimen will improve 11/08/20232320 by Johnie Arredondo RN Outcome: Not Progressing 11/08/20232319 by Johnie Arredondo RN Outcome: Not Progressing Problem: Coping: Goal: Ability to cope will improve 11/08/20232320 by Johnie Arredondo RN Outcome: Not Progressing 11/08/20232319 by Johnie Arredondo RN Outcome: Not Progressing Problem: Health Behavior: Goal: Identification of resources available to assist in meeting health care needs will improve 11/08/20232320 by Johnie Arredondo RN Outcome: Not Progressing 11/08/20232319 by Johnie Arredondo RN Outcome: Not Progressing Problem: Sensory: Goal: Pain level will decrease 11/08/20232320 by Johnie Arredondo RN Outcome: Not Progressing 11/08/20232319 by Johnie Arredondo RN Outcome: Not Progressing Problem: Lack of Knowledge: Goal: Ability to state ways to decrease the risk of falls will improve Outcome: Not Progressing Problem: Safety: Goal: Will remain free from falls Outcome: Not Progressing Goal: Will remain free from injury from falls Outcome: Not Progressing Goal: Will remain free from falls and injury in home environment Outcome: Not Progressing Problem: Lack of Knowledge: Goal: Ability to state signs and symptoms to report to health care provider will improve Outcome: Not Progressing Goal: Understanding of ways to prevent infection will improve Outcome: Not Progressing Problem: Nutritional: Goal: Nutritional status will improve Outcome: Not Progressing Problem: Physical Regulation: Goal: Diagnostic test results will improve Outcome: Not Progressing Goal: Will remain free from infection Outcome: Not Progressing Goal: Ability to maintain vital signs within normal range will improve Outcome: Not Progressing Problem: Respiratory: Goal: Ability to maintain normal respiratory secretions will improve Outcome: Not Progressing Problem: Skin Integrity: Goal: Demonstration of wound healing without infection will improve Outcome: Not Progressing Goal: Complications related to intravenous access or infusion will be avoided or minimized Outcome: Not Progressing Problem: Activity: Goal: Ability to avoid complications of mobility impairment will improve Outcome: Not Progressing Goal: Ability to tolerate increased activity will improve Outcome: Not Progressing Problem: Bowel/Gastric: Goal: Gastrointestinal status for postoperative course will improve Outcome: Not Progressing Problem: Lack of Knowledge: Goal: Ability to verbalize activity precautions or restrictions will improve Outcome: Not Progressing Goal: Knowledge of the prescribed therapeutic regimen will improve Outcome: Not Progressing Problem: Coping: Goal: Ability to verbalize feelings will improve Outcome: Not Progressing Problem: Fluid Volume: Goal: Will maintain adequate fluid volume Outcome: Not Progressing Problem: Health Behavior: Goal: Identification of resources available to assist in meeting health care needs will improve Outcome: Not Progressing Problem: Physical Regulation: Goal: Neurologic status will improve Outcome: Not Progressing Goal: Ability to maintain clinical measurements within normal limits will improve Outcome: Not Progressing Problem: Respiratory: Goal: Ability to maintain adequate ventilation will improve Outcome: Not Progressing Problem: Sensory: Goal: Pain level will decrease Outcome: Not Progressing Problem: Skin Integrity: Goal: Signs of wound healing will improve Outcome: Not Progressing Goal: Will remain free from infection Outcome: Not Progressing 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 * Plan of Care - Damaris Maxwell LCSW - 11/08/2023 3:16 PM CST Patient flagged as a 30 day readmission. SW attempted to meet with him to complete assessment, however he was with nursing staff and unavailable. SW will attempt again at a later time. GEN Munoz LCSW 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 * Pre-Procedure Note - Aston Bragg MD - 11/08/2023 2:28 PM ELEC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 PRE-SEDATION ASSESSMENT/H&P Patient is a 73 y.o. male with chief complaint of PE. Procedure: IR INSERT VENA CAVA FILTER Indications/History: 73 y/o M s/p lumbar laminectomy in October with PE post- opertively anticoagulated with lovenox who now presents with LE paralysis with epidural hematoma s/p posterior decompression earlier today (11/08). IR is consulted for IVC filter in the setting of recent PE and contraindication to anticoagulation. PMH: Patient Active Problem List Diagnosis Date Noted Paralysis of both lower limbs ([facility]) ([facility]) 11/07/2023 Pulmonary embolism ([facility]) 10/26/2023 S/P spinal fusion 10/23/2023 Cardiac arrest ([facility]) 10/23/2023 Left perinephric collection, 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 10/15/2023 Ureteral colic 10/13/2023 UTI (urinary tract infection) 10/13/2023 Hydronephrosis with urinary obstruction due to renal calculus 10/12/2023 Lumbar radiculopathy 10/08/2023 Gross hematuria 10/18/2022 Bladder neck obstruction 10/17/2022 Lesion of urinary bladder 10/17/2022 Prostate cancer ([facility]) 10/17/2022 HTN (hypertension) 10/10/2021 Risk factors for obstructive sleep apnea 10/10/2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 Presence of right artificial knee joint 10/25/2018 Primary osteoarthritis of left knee 10/25/2018 Localized adiposity 07/17/2018 Knee pain 10/24/2016 History of Sedation/Anesthesia Complications: No History of Difficult Airway: No HISTORY PSH Past Surgical History: Procedure Laterality Date FL UPPER GI AIR CONTRAST W KUB Left 09/21/2023 JOINT REPLACEMENT Right 2014 right knee replacement MELANOMA RESECTION Right 2006 right flank PERCUTANEOUS NEPHROSTOMY PCN LEFT Left 10/14/2023 PROSTATECTOMY 2009 REPLACEMENT TOTAL KNEE Left 10/17/2021 REVISION TOTAL KNEE ARTHROPLASTY Right 09/30/2019 VASECTOMY 30 years ago Social History: Social History [...] other systems are negative MEDICATIONS Current Meds: No current facility-administered medications for this visit. No current outpatient medications on file. Facility-Administered Medications Ordered in Other Visits: acetaminophen (TYLENOL) tablet 1,000 mg, 1,000 mg, oral, Q6H, Vicki Rehman NP, 1,000 mgat 11/08/23 1223 ceFAZolin (ANCEF) 2,000 mg/20 mL in sterile water (premix) 2,000 mg, 2,000 mg, intravenous, Q8H [facility], Vicki Rehman NP cetirizine (ZyrTEC) tablet 10 mg, 10 mg, oral, Daily, Vicki Rehman NP cholecalciferol (VITAMIN D-3) capsule 5,000 Units, 5,000 Units, oral, Daily, Vicki Rehman NP dexAMETHasone (DECADRON) 4 mg/mL injection 4 mg, 4 mg, intravenous, Q6H [facility], Vicki Rehman NP, 4 mg at 11/08/23 1204 dextrose gel in packet 15 g, 15 g, oral, Q15 Min PRN OR dextrose (D10W) 10% bolus 250 mL, 250 mL, intravenous, Q15 Min PRN, Vicki Rehman NP [START ON 11/09/2023] dextrose 5% and Lactated Ringer's infusion, 10 mL/hr, intravenous, Continuous, Vicki Rehman NP docusate sodium (COLACE) capsule 100 mg, 100 mg, oral, BID OR [DISCONTINUED] docusate (COLACE) 10 mg/mL oral liquid 100 mg, 100 mg, feeding tube, BID, Vicki Rehman NP gabapentin (NEURONTIN) capsule 300 mg, 300 mg, oral, TID, Vicki Rehman NP glucagon injection 1 mg, 1 mg, intramuscular, Q30 Min PRN, Vicki Rehman NP hydrALAZINE (APRESOLINE) injection 10 mg, 10 mg, intravenous, Q4H PRN, Vicki Rehman NP,10 mg at 11/08/23 1254 HYDROmorphone (DILAUDID) injection 0.25 mg, 0.25 mg, intravenous, Q1H PRN, Silver Brown MD, 0.25 mg at 11/08/23 1403 insulin lispro (HumaLOG, ADMELOG) 100 unit/mL injection 2-7 Units, 2-7 Units, subcutaneous, Q4H [facility], Vicki Rehman NP, 2 Units at 11/08/23 1204 levETIRAcetam (KEPPRA) tablet 1,000 mg, 1,000 mg, oral, BID, Vicki Rehman NP, 1,000 mg at 11/08/23 1223 magnesium sulfate 2 g/50 mL in water (premix) 2 g, 2 g, intravenous, Once, Vicki Rehman NP, 2 g at 11/08/23 1354 ondansetron (ZOFRAN) injection 4 mg, 4 mg, intravenous, Q6H PRN, Vicki Rehman NP, 4 mg at 11/08/23 1355 oxyCODONE (ROXICODONE) tablet 5 mg, 5 mg, oral, Q4H PRN, Silver Brown MD, 5 mg at 11/08/[address] (PROTONIX) extended release tablet 40 mg, 40 mg, oral, Daily, Vicki Rehman NP, 40 mg at 11/08/23 1223 senna (SENOKOT) tablet 1 tablet, 1 tablet, oral, BID OR [DISCONTINUED] senna 1.76 mg/mL syrup 8.8 mg, 8.8 mg, feeding tube, BID, Vicki Rehman NP tamsulosin (FLOMAX) extended release capsule 0.8 mg, 0.8 mg, oral, Daily with dinner, Vicki Rehman NP vancomycin 1,250 mg/262.5 mL in sodium chloride 0.9% (premix) 1,250 mg, 15 mg/kg, intravenous, Q12H, Vicki Rehman NP Home Meds: HOME MEDICATIONS : acyclovir (ZOVIRAX) 400 mg tablet cephalexin (KEFLEX) 500 mg capsule cetirizine (ZyrTEC) 10 mg tablet cholecalciferol (VITAMIN D-3) 5,000 unit capsule coenzyme Q10 100 mg capsule cyclobenzaprine (FLEXERIL) 5 mg tablet DILT-XR 240 mg 24 hr capsule enoxaparin (LOVENOX) 80 mg/0.8 mL syringe fish,bora,flax oils-[id number] 400-400-400 mg capsule gabapentin (NEURONTIN) 300 mg capsule irbesartan (AVAPRO) 300 mg tablet ketorolac (TORADOL) 10 mg tablet levETIRAcetam (KEPPRA) 1,000 mg tablet Mounjaro 10 mg/0.5 mL pen injector omeprazole (PriLOSEC) 20 mg capsule oxyCODONE (ROXICODONE) 5 mg immediate release tablet senna-docusate (PERICOLACE) 8.6-50 mg tamsulosin (FLOMAX) 0.4 mg extended release capsule Allergies: No Known Allergies Vitals: There were no vitals filed for this visit. LABS Pertinent Labs: Recent Labs Lab Units 11/08/23 1151 11/08/23 0822 11/08/23 0705 11/08/23 0418 11/07/23 2301 WBC K/cumm 10.4* -- -- -- 12.0* HEMOGLOBIN, POC g/dL -- 10.6* 9.8* < > -- HEMOGLOBIN g/dL 9.2* -- -- -- 9.5* HEMATOCRIT % 27.4* -- -- -- 29.0* HEMATOCRIT POC % -- 32.0* 29.0* < > -- PLATELETS K/cumm 255 -- -- -- 343 < > = values in this interval not displayed. Recent Labs Lab Units 11/08/23 1151 11/07/23 2301 SODIUM mmol/L 138 141 POTASSIUM PLASMA mmol/L 4.4 4.2 CHLORIDE mmol/L 108 104 CO2 mmol/L 22 28 BUN SERUM mg/dL 15 14 CREATININE mg/dL 0.82 0.98 CALCIUM mg/dL 8.0* 8.6 Recent Labs Lab Units 11/08/23 1151 11/07/23 2301 PROTIME (PT) sec 12.8 12.6 INR 1.12 1.11 APTT sec -- 32 Recent Labs Lab Units 11/08/23 0822 11/08/23 0705 11/08/23 0600 PH ART 7.38 7.42 7.39 PO2 ARTERIAL POC mmHg 153* 156* 158* IMAGING reviewed PERTINENT PHYSICAL EXAM General: Lying in bed, Neuro: Altered from anesthesia Abd: soft, ntnd Extrem: no pitting edema Assessment:73 y/o M w/ hx PE with contraindication to anticoagulation who presents for IVC filter placement. Plan for IVC filter placement tomorrow, 11/09/23. Please make NPO at midnight. Consent was obtained from patient's . Airway Exam: normal ASA Classification:Class 3: Patient with severe systemic disease Sedation Plan: Min Sedation Adjunctive Procedures: None NONE PO status: Last PO: NPO since midnight Benefits, risks and alternatives of procedure and planned sedation have been discussed with the patient and/or their underwriting sales representative. All questions answered and they agree to proceed. 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 * Op Note - Marcial Vu MD - 11/08/2023 4:57 AM CST Operative Report Surgeon Marcial Vu MD Pure Pak Machine Operator(s) MD Avila Fontenot MD Michele Christy, MD Anesthesia General endotracheal. Preoperative Diagnosis 1. 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 Diffuse idiopathic skeletal hyperostosis with spinal ankylosis T4-L2 Postoperative Diagnosis 1. 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 Durotomy Procedure(s) 1. Thoracic and lumbar laminectomies T6-L4 2. Evacuation of thoracic and lumbar epidural hematoma 3. Durotomy repair Indications for Surgery Hira Evans is a 73 y.o. male who initially presented to my clinic on September 13, 2023 with 1 month of left gluteal pain, left quadriceps weakness (4/5), and left EHL weakness (4/5) which started after he did a lot of walking while on vacation. An MRI of the lumbar spine obtained on August 30, 2023 showed a left paracentral and far-lateral L4-L5 disc herniation with a large cranially extruded fragment with severe compression of the left L4 and L5 nerves. At that time, he felt that hissymptoms had improved from the initial injury but they had plateaued and were still bothersome to him. We had discussed treatment options at that time, both nonoperative and operative. He elected to proceed with a trial of nonoperative care with a left L4-L5 transforaminal epidural steroid injection. A repeat MRI of the lumbar spine on October 01, 2023 showed partial resorption of the extruded fragment but with persistent left neural foraminal and lateral recess stenosis with compression of the exiting left L4 and traversing left L5 nerves. I saw him back in clinic on October 08, 2023. He had undergone a left L4-L5 transforaminal epidural steroid injection which completely took away all ofhis left lower extremity pain for 1 week but then he subsequently developed severe new radiating pain in the left lower extremity in an L4 distribution. Additionally, his left lower extremity weakness had profoundly worsened to the point that he had 2/5 strength in the left quadriceps, 3/5 strengthin the left tibialis anterior, and 4/5 strength in the left EHL. Given the presence of severe radicular pain localizing to L4, complete but temporary pain relief with an L4-L5 transforaminal TONIA, weakness localizing to L4 and L5 (quadriceps, tibialis anterior, EHL), and compression of the left L4 and L5 nerves on his lumbar spine MRI, I again presented him with treatment options both nonoperativeand operative but I did tell him that surgery to decompress the nerves may help his pain, prevent his weakness from worsening, and potentially allow him to regain some strength in the left lower extremity. I also discussed this case and particularly the left quadriceps weakness with my senior marketing specialist prior to developing a final surgical plan. I ultimately offered him a L4-L5 open posterior spinalfusion with instrumentation, transforaminal lumbar interbody fusion from the left side, and laminectomy. This approach would allow me to remove the entire left L4-L5 facet joint to ensure that the left L4 nerve had been completely decompressed. During his preoperative medical evaluation, we diagnosed a UTI. I called him and his to inform them of this and when I spoke with them over the phone, his informed me that Hira had worsening generalized weakness and malaise such that he was confined to a recliner at most times and she did not feel safe even attempting to transfer him short distances within the house. I was concerned that he may have a severe infection or systemic illness and recommended that they present to the emergency department immediately, which they did that same evening. He was diagnosed with a complicated E coli UTI with a left ureteral stone and was admitted [facility] on October 12, 2023. The decision was made to delay his spine surgery until he was medically fit to undergo a major operation. Over the next week, he underwent an attempted left ureteralstent placement by Urology which was aborted (October 13, 2023); a left percutaneous nephrostomy byIR (October 14, 2023); and laser lithotripsy, removal of 2 ureteral stones, removal of nephrostomytube, and placement of left ureteral stent by Urology (October 18, 2023). During this time, he wasbeing treated for his UTI with antibiotics and his overall medical condition had improved back to his pre-UTI baseline. I spoke with the Medicine and Urology teams and all agreed that he was safe to undergo spine surgery. Both teams had actually planned to send Hira home but I requested that he remain in the hospital for continued medical optimization in anticipation of potential spine surgery the following week. I spoke with the patient and his and both agreed that they wanted to proceed with surgery given his persistent severe left lower extremity pain and weakness. Therefore, the decis ion was made to proceed with surgery and I performed a L4-L5 open posterior spinal fusion with instrumentation, laminectomy, and transforaminal lumbar interbody fusion on October 23, 2023. There were no complications during the surgery itself. Immediately after surgery, he had a seizure and went into cardiac arrest in PACU. He underwent CPR and had ROSC after 2 minutes. He was admitted to the ICU and was found to have small bilateral SDH and bilateral acute PEs. Understanding the potential risks of anticoagulation in the setting of spine surgery, the decision was made to initiate therapeuticheparin drip to treat his life-threatening pulmonary emboli. He was subsequently transitioned to therapeutic Lovenox. He recovered appropriately in the hospital and was discharged home on October 30, 2023. His left lower extremity pain improved substantially immediately after his spine surgery andhe made some improvements in his strength such that he was able to get up and walk around with the a ssistance of a walker. He had minimal pain postoperatively until November 06 and 2023 when he had a few episodes of severe back pain. He had no numbness, paresthesias, or weakness associated with these episodes. On the evening of November 07, 2023, at 6:20 p.m., I received a call from his stating that 5 minutes prior, iHra had developed sudden onset numbness from the waist down involving bilateral lower extremities and the saddle region as well as inability to move his legs, feet, or toes. I was concerned for a hematoma and requested that they present to [facility] Emergency Department immediately. His imaging demonstrated a hematoma extending from T5-T6 down to L5 with severe compression of the spinal cord and cauda equina. I discussed treatment options with him, his , their close family friend, and their daughter, and they elected to proceed with surgery emergentlyto decompress the neural elements to prevent worsening of his numbness and weakness and give the best chance for neurologic recovery. The indications for the procedure, the potential risks, expected benefits, and alternatives to surgery were discussed with the patient and the patient gave his informed consent to proceed. A total of10 hours passed between the symptom onset and the start of the surgery. Operative Findings 1. Epidural hematoma extending from T5-L5 with both organized and non organized components which were displacing and deforming the spinal cord in the thoracic spine and causing severe cauda equina compression in the lumbar spine 2. Chronic appearing durotomy in the lumbar spine at the level of the L4-L5 index surgery with herniated rootlets and hematoma within the thecal sac at this level Description The operative site was identified and marked in the preoperative holding area. The patient was thenbrought back to the operating room supine on the hospital stretcher. He was administered a general anesthetic and oral endotracheal intubation was performed by the anesthesiology service team. Additional intravenous access was obtained. Preoperative intravenous antibiotics consisting of Ancef and vancomycin were administered for infection prophylaxis. Neuromonitoring needles were placed. A Harris catheter was placed. Jerry-Wells tongs were applied in the standard fashion for temporary intraop traction. The patient was then turned prone onto the OSI Steven table. All bony prominences were properly padded and the patient's abdomen and axillae were allowed to hang free. The patient's head and neck were supported using the Jerry-Wells tongs and 15 lbs of temporary intraop traction. Once we were satisfied with the patient's position on the operating table, the patient was secured to the table. The entire posterior thoracolumbar spine was then prepped and draped in the usual sterile fashion using alcohol and ChloraPrep. Pre position neuro monitoring data were obtained and were unchanged after positioning the patient prone on the operative table. Mean arterial pressures were maintained at 80 mmHg or greater during the entire case. An incision was made over the posterior aspect of the spine in the midline from T5-L5. The prior incision was utilized for the lumbar portion of the exposure. Immediately upon opening the fascia which had been closed in watertight fashion from his lumbar surgery, a large organized hematoma was encountered. The hematoma was removed using rongeurs until the instrumentation at L4-L5 and the thecal sac were visible. The remainder of the lumbar spine proximal to the L4-L5 fusion and the thoracic spine up to T5 were exposed subperiosteally using Bovie electrocautery. We noted a small collection of nerve rootlets laterally on the right side which had herniated through a defect in the dura at L4-L5. At this time, I suspected that a durotomy had occurred at some point prior to this surgery. The dural defect was complex and in a difficult location for repair; therefore, I called an intraoperativeconsult to my colleague Dr. Simeon Cuevas to assist with the repair. We covered the exposed thecal sac and nerve rootlets with cotton patties and protected them throughout the duration of the case. We then proceeded to perform laminectomies of the thoracic and lumbar spine. We used a combination of Leksell rongeur, high-speed bur, and Misonix Bone Scalpel to remove the caudal 75% of the T6 lamina as well as the entire laminae T7-L4. Care was taken not to destabilize the facet joints in the thoracolumbar junction. During the laminectomies, we noted a combination of organized and non organized hematoma in the epidural space which was displacing and deforming the spinal cord in the thoracic spine and causing severe compression of the cauda equina in the lumbar spine. We removed all of the hematoma using suction, curettes, and [place]. We used an EVD catheter to irrigate ventrally in the midthoracic spine and we also passed this catheter proximal to the level of our laminectomies up to T4 and irrigated gently to remove any residual clot. We brought an ultrasound into the surgical field to assess for residual stenosis. We noted persistent compression on the ultrasound in the thoracolumbar junction to the left side and therefore we widened our laminectomy at this level which revealed additional coagulated hematoma which we then removed. We brought the ultrasound back into the surgical field to reassess our decompression and noted that the spinal cord was decompressed with CSF ventrally, dorsally, and bilaterally and the cauda equina was similarly decompressed. We then turned our attention to performing the durotomy repair. We resected a portion of the right medial L4-L5 facet joint to gain wide exposure of the dural defect. We used a nerve hook to reduce the herniated rootlets back into the thecal sac. There was hematoma within the thecal sac and we irrigated this out gently. We performed a primary repair of the dural defect 1st by placing three 5-0 Prolene interrupted sutures across the defect followed by a running 5-0 Prolene stitch the entire length of the defect from distal to proximal to achieve a watertight closure. We then dried the area of the repair using dry cotton patties and had anesthesia perform a Valsalva to 40 mmHg. Our repair was watertight and there was no leakage of CSF from the repair. After this, we applied Tachosil over the repair and irrigated this over a cotton sidney such that it would become adherent to reinforce our repair. We irrigated the wound with sterile saline. We achieved meticulous hemostasis with a combination ofbipolar electrocautery, FloSeal, and EVARREST. We sprayed a thin layer of Tisseel over the spinal cord and our dural repair to reinforce the dural repair and to promote hemostasis. There was excellent hemostasis without any bleeding. We placed 2 deep drains into the wound. We then closed the wound in layers with 1. Vicryl interrupted sutures in the muscle followed by 1. Stratafix PDS in watertight fashion for fascial closure. Dermis was reapproximated with 2-0 Vicryl interrupted followed by 3-0 nylon in the skin. A Prevena incisional VAC was applied. The patient was transferred from the operative table to the hospital bed. Anesthesia was reversed and the patient was extubated. The patient was then brought to the SICU. Pre and post position neuro monitoring data were obtained. During the exposure, there was loss of motor data of the left abductor hallucis and right tibialis anterior. We confirmed with anesthesia that no propofol was being used and we had anesthesia increase the mean arterial pressures to 90 mmHg and we requested that the hemoglobin be maintained at greater than or equal to 9. The motor data didreturn to pre and post position baseline after approximately 2 hours and remained within acceptablebaselines throughout the remainder of the surgery. I was scrubbed and present for the entire procedure including exposure, thoracic and lumbar laminectomies, evacuation of thoracic and lumbar epidural hematoma, dural repair, and closure. No qualifiedresident was available. Please note that Dr. Cuevas was scrubbed for and assisted with the thoracicand lumbar laminectomies, evacuation of thoracic and lumbar epidural hematoma and dural repair as well. His skilled assistance greatly helped to expedite the case, thereby making the procedure safer.In addition, his skilled assistance was helpful given complexity of the durotomy (stellate tear andlateral location) and given his expertise in dural repair. Implant Information Nothing was implanted during the procedure Specimens None. Counts Correct. Estimated Blood Loss 1250 mL. Total IV Fluids 3.5 L crystalloid 1 unit FFP 3 units packed red blood cells Complications None. Condition on Discharge Stable. Marcial Vu Jr., MD Wholesale Manager Department of Orthopaedic Surgery Division of Spine Surgery [facility] [place], [place] Operative Report dictated by Marcial Vu MD on 11/09/23 using Fluency Direct. Transcriptionvariances may occur. 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 * Brief Op Note - Nasir Manzanares MD - 11/08/2023 4:57 AM CST Operative Progress Note Surgical Team: Surgeon(s) and Role: * Marcial Vu MD - Primary * Simeon Cuevas MD - Assisting * Avila Esqueda MD - Resident - Assisting Anesthesiologist: Edmond Barker MD; Hood Kim MD Squad Leader: George Plummer MD; Javad Morales MD Public Health Specialist: Silver Chow RN; Aranza Mariano RN Public Health Specialist Relief: Justin Odonnell RN Scrub: Paige Vega ST; Anjana Glaser RN; Linda Tompkins RN Mail Machine Operator: Adia Poe MT Public Health Specialist Second: Aileen Morales RN; Jamaica Dunlap RN DATE OF SURGERY : 11/08/2023 Preoperative Diagnosis: Pre-op Diagnosis * Paralysis of both lower limbs (CMS/HCC) (HCC) [G82.20] Postoperative Diagnosis: Post-op Diagnosis * Paralysis of both lower limbs (CMS/HCC) (HCC) [G82.20] Procedure(s): Procedure(s) (LRB): LAMINECTOMY THORACIC DECOMPRESSION (N/A) LAMINECTOMY LUMBAR - POSTERIOR (N/A) SPINAL CORD MONITORING (N/A) REPAIR DURAL TEAR Operative Findings: Epidural hematoma from T5-L5 Lumbar dural tear Toracic and lumbar laminectomy 2 deep drains placed Primary closure with iVAC Estimated Blood Loss: 1250 mL Intraoperative Fluids: Total: 3.5L Crystaloid 1unit FFP 3units pRBC Specimens: No specimen collected in procedure Implants: Nothing was implanted during the procedure Blood/Blood Products Transfused: 3units pRBC 1unit FFP Complications: None Condition on Discharge from the operating room was stable Nasir Manzanares MD Date: 11/08/2023 Time: 11:02 AM TEACHING ATTESTATION : I was present and directly participated in the entire procedure (including opening and closing). Cosigned by Marcial Vu MD at 11/08/2023 4:23 PM ELEC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 * ED Procedure Note - Eula Wagoner MD - 11/08/2023 2:18 AM ELEC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 Associated Order(s): Critical Care Procedure Critical Care Performed by: Eula Wagoner MD Authorized by: Eula Wagoner MD Critical care provider statement: As reflected in the history, physical exam, orders, notes, and/or MDM, I was personally present while the patient was critically ill and provided critical care services for 20 minutes, excluding timeinvolved in separately billable procedures. Critical care was necessary to treat or prevent imminent or life- threatening deterioration of the following condition(s): spinal cord injury/spine fracture Critical care was time spent by me providing the following: continuous telemetry, continuous pulse oximetry and serial bedside patient exams advanced imaging MRI MRI imaging, coordination with Ortho spine, emergent OR for spinal hematoma I provided emergent necessary critical care medicine services to this patient. I ordered and reviewed test results and/or imaging studies. I spent time discussing the management of this critically ill patient with consultants and the medical staff. I spent time discussing the management and therapeutic options for this critically ill patient with the patient themselves or with the appropriate designated surrogate decision-maker. I spent time documenting in the medical record. Eula Wagoner MD 11/08/23 0219 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 * ED Re-evaluation Note - Abdi Dwyer MD - 11/07/2023 11:04 PM ELEC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 ED Re-evaluation TRANSITION OF CARE: I, Abdi Dwyer MD, am taking signout from the previous resident and assuming care of this patient. I have reviewed all pertinent vital signs, allergies, and history available in the chart. Triage note: Presented to OSH with c/o BLE numbness and tingling, unable to ambulate. Post-op 10/19/23, laminectomy on L4/L5 with Dr. Clohisy, concern for hematoma. Pt started having tightness in his abd about 3hrs ago then lost movement in BLE. At baseline pt was walking with walker. A&O4, VSS. Summary: 73 y.o. male PMH L4-5 fusion surgery , c/b PE now on therapeutic lovenox. Presented w/ acute onset abd pain on and subsequent b/l LE numbness. C/f epidural hematoma. Bound for OR. Pending/Dispo: admit for 4400 SICU ED Course as of 11/11/23 1626 Time: 11/07 2215 Comment: Discussed with Dr. Vu. Planning for emergent MRI and may take his surgery tonight pending results of that MRI. Patient is therapeutically anticoagulated on Lovenox and if he does go to the OR he will need to be reversed prior in the ED. also requesting bilateral lower extremity Dopplers either pre or postoperatively in consideration for IVC filter. Plan for postoperative dopplers orDopplers in the morning. By: Deisy Ayala MD Time: 11/07 2238 Comment: Called [facility]. Patient is on the schedule for 2329 and is the next patient. By: Deisy Ayala MD Time: 11/08 56 Comment: Ortho spine requested CT of CT and L-spine non con. They are planning for OR By: Abdi Dwyer MD Final diagnoses: Paralysis of both lower limbs (CMS/HCC) (HCC) Abdi Dwyer MD Resident 11/11/23 1626 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 * ED Procedure Note - Temo Hampton MD - 11/07/2023 10:43 PM CSTAssociated Order(s): Critical Care Procedure Critical Care Performed by: Temo Hampton MD Authorized by: Temo Hampton MD Critical care provider statement: As reflected in the history, physical exam, orders, notes, and/or MDM, I was personally present while the patient was critically ill and provided critical care services for 35 minutes, excluding timeinvolved in separately billable procedures. Critical care was necessary to treat or prevent imminent or life- threatening deterioration of the following condition(s): severe neurologic condition Concern for post-op epidural hematoma. Critical care was time spent by me providing the following: continuous telemetry, continuous pulse oximetry, continuous capnography and serial bedside patient exams frequent neurologic exams and advanced imaging MRI I provided emergent necessary critical care medicine services to this patient. I ordered and reviewed test results and/or imaging studies. I spent time discussing the management of this critically ill patient with consultants and the medical staff. I spent time discussing the management and therapeutic options for this critically ill patient with the patient themselves or with the appropriate designated surrogate decision-maker. I spent time documenting in the medical record. I admitted this patient to an Intensive Care unit (ICU) and discussed management with the admitting team. Temo Hampton MD 11/07/23 6708 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 * [facility] - Latha Gaston RN - 11/07/2023 9:00 PM CST As part of the readmission prevention initiative, ED CM receives an automated alert on patient who was discharged from [facility] inpatient admission </=7 days (DC 10/30/23; ED treatment team aware). Per EMR, pt activity enrolled with [facility]), so full chart review not completed. Secure message received from [facility] (Outpatient Manager Molecular) confirming follow and willingness to provide assistance as needed. For questions or care management/discharge assistance please contact physical integration practitioner [facility] #[phone], ED CM [phone], or ED SW [phone]. 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 * ED Pre-Arrival Note - Niyah Anderson RN - 11/07/2023 7:23 PM ELEC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 Pre-Arrival Note 73 M- Presented to OSH with c/o BLE numbness and tingling, unable to ambulate. Post-op 10/19/23, laminectomy on L4/L5 with Dr. Vu, concern for hematoma. Accepted to ED by Dr. Moises Anderson RN 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 documented in this encounter Plan of Treatment Pending Results Name Type Priority Associated Diagnoses Date /Time Basic metabolic panel Lab Routine 03/2024 11:30 PM ELEC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 Lidocaine level Lab Routine 11:13 PM ELEC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 Scheduled Orders Name Type Priority Associated Diagnoses Orde r Schedule FL Fluoroscopy < 1 Hour Imaging IP Routine O nce for 1 Occurrences starting 11/08/2023 until 11/08/2023 Basic metabolic panel Lab Routine Onc e for 1 Occurrences starting 11/09/2023 until 11/09/2023 Lidocaine level Lab Routine Once for 1 Occurrences starting 11/10/2023 until 11/10/2023 documented as of this encounter Procedures Procedure Name Priority Date/Time Associated Diagnosis Comments POCT GLUCOSE DEVICE Routine 11/16/2023 1 1:35 AM ELEC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 POCT GLUCOSE DEVICE Routine 11/16/2023 7 :53 AM ELEC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 POCT GLUCOSE DEVICE Routine 11/15/2023 9 :20 PM ELEC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 EGFR Timed 11/15/2023 9:18 PM ELEC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 CBC WITHOUT DIFFERENTIAL Timed 11/15/2023 9:18 PM ELEC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 PHOSPHORUS Timed 11/15/2023 9:18 PM ELEC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 MAGNESIUM Timed 11/15/2023 9:18 PM ELEC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 BASIC METABOLIC PANEL Timed 11/15/2023 9:18 PM ELEC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 POCT GLUCOSE DEVICE Routine 11/15/2023 5 :17 PM ELEC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 POCT GLUCOSE DEVICE Routine 11/15/2023 1 2:20 PM ELEC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 POCT GLUCOSE DEVICE Routine 11/15/2023 8 :02 AM ELEC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 POCT GLUCOSE DEVICE Routine 11/14/2023 8 :39 PM ELEC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 POCT GLUCOSE DEVICE Routine 11/14/2023 5 :44 PM ELEC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 XR SPINE THORACIC 2 VIEWS IP Routine 11/14/2023 1:51 PM ELEC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 XR SPINE LUMBAR 2 OR 3 VIEWS IP Routine 11/14/2023 1:51 PM ELEC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 XR SPINE CERVICAL 2 OR 3 VIEWS IP Routine 11/14/2023 1:50 PM ELEC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 POCT GLUCOSE DEVICE Routine 11/14/2023 1 1:52 AM ELEC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 POCT GLUCOSE DEVICE Routine 11/14/2023 8 :04 AM ELEC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 POCT GLUCOSE DEVICE Routine 11/13/2023 8 :11 PM ELEC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 EGFR Timed 11/13/2023 8:07 PM ELEC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 CBC WITHOUT DIFFERENTIAL Timed 11/13/2023 8:07 PM ELEC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 PHOSPHORUS Timed 11/13/2023 8:07 PM ELECTRICAL LABORATORY TECHNICIAN MAGNESIUM Timed 11/13/2023 8:07 PM ELECTRICAL LABORATORY TECHNICIAN BASIC METABOLIC PANEL Timed 11/13/2023 8:07 PM ELECTRICAL LABORATORY TECHNICIAN POCT GLUCOSE DEVICE Routine 11/13/2023 4 :58 PM ELECTRICAL LABORATORY TECHNICIAN POCT GLUCOSE DEVICE Routine 11/13/2023 1 2:22 PM ELECTRICAL LABORATORY TECHNICIAN POCT GLUCOSE DEVICE Routine 11/13/2023 7 :34 AM ELECTRICAL LABORATORY TECHNICIAN POCT GLUCOSE DEVICE Routine 11/12/2023 9 :34 PM ELECTRICAL LABORATORY TECHNICIAN POCT GLUCOSE DEVICE Routine 11/12/2023 5 :15 PM ELECTRICAL LABORATORY TECHNICIAN POCT GLUCOSE DEVICE Routine 11/12/2023 1 1:25 AM ELECTRICAL LABORATORY TECHNICIAN POCT GLUCOSE DEVICE Routine 11/12/2023 7 :59 AM ELECTRICAL LABORATORY TECHNICIAN POCT GLUCOSE DEVICE Routine 11/11/2023 9 :38 PM ELECTRICAL LABORATORY TECHNICIAN EGFR Routine 11/11/2023 9:35 PM ELECTRICAL LABORATORY TECHNICIAN CBC WITHOUT DIFFERENTIAL Routine 11/11/2023 9:35 PM ELECTRICAL LABORATORY TECHNICIAN PHOSPHORUS Routine 11/11/2023 9:35 PM ELECTRICAL LABORATORY TECHNICIAN MAGNESIUM Routine 11/11/2023 9:35 PM ELECTRICAL LABORATORY TECHNICIAN BASIC METABOLIC PANEL Routine 11/11/2023 9:35 PM ELECTRICAL LABORATORY TECHNICIAN POCT GLUCOSE DEVICE Routine 11/11/2023 5 :37 PM ELECTRICAL LABORATORY TECHNICIAN CBC WITHOUT DIFFERENTIAL Routine 11/11/2023 5:08 PM ELECTRICAL LABORATORY TECHNICIAN VANCOMYCIN LEVEL TROUGH Timed 11/11/2023 2:44 PM ELECTRICAL LABORATORY TECHNICIAN TRANSFUSE RED BLOOD CELLS Timed 11/11/2023 12:56 PM ELECTRICAL LABORATORY TECHNICIAN POCT GLUCOSE DEVICE Routine 11/11/2023 1 2:11 PM ELECTRICAL LABORATORY TECHNICIAN TYPE AND SCREEN Timed 11/11/2023 11:29 AM ELECTRICAL LABORATORY TECHNICIAN PREPARE RBC Timed 11/11/2023 10:08 AM ELECTRICAL LABORATORY TECHNICIAN POCT GLUCOSE DEVICE Routine 11/11/2023 8 :33 AM ELECTRICAL LABORATORY TECHNICIAN EGFR Routine 11/10/2023 11:13 PM ELECTRICAL LABORATORY TECHNICIAN LIDOCAINE LEVEL Routine 11/10/2023 11:13 PM ELECTRICAL LABORATORY TECHNICIAN CBC WITHOUT DIFFERENTIAL Routine 11/10/2023 11:13 PM ELECTRICAL LABORATORY TECHNICIAN PHOSPHORUS Routine 11/10/2023 11:13 PM ELECTRICAL LABORATORY TECHNICIAN MAGNESIUM Routine 11/10/2023 11:13 PM ELECTRICAL LABORATORY TECHNICIAN BASIC METABOLIC PANEL Routine 11/10/2023 11:13 PM ELECTRICAL LABORATORY TECHNICIAN POCT GLUCOSE DEVICE Routine 11/10/2023 8 :50 PM ELECTRICAL LABORATORY TECHNICIAN POCT GLUCOSE DEVICE Routine 11/10/2023 5 :31 PM ELECTRICAL LABORATORY TECHNICIAN POCT GLUCOSE DEVICE Routine 11/10/2023 1 1:47 AM ELECTRICAL LABORATORY TECHNICIAN POCT GLUCOSE DEVICE Routine 11/10/2023 8 :00 AM ELECTRICAL LABORATORY TECHNICIAN VANCOMYCIN LEVEL TROUGH Timed 11/10/2023 2:59 AM ELECTRICAL LABORATORY TECHNICIAN EGFR Routine 11/09/2023 11:30 PM ELECTRICAL LABORATORY TECHNICIAN LIDOCAINE LEVEL Routine 11/09/2023 11:30 PM ELECTRICAL LABORATORY TECHNICIAN CBC WITHOUT DIFFERENTIAL Routine 11/09/2023 11:30 PM ELECTRICAL LABORATORY TECHNICIAN BASIC METABOLIC PANEL Routine 11/09/2023 11:30 PM ELECTRICAL LABORATORY TECHNICIAN EGFR Routine 11/09/2023 8:41 PM ELECTRICAL LABORATORY TECHNICIAN CBC WITHOUT DIFFERENTIAL Routine 11/09/2023 8:41 PM ELECTRICAL LABORATORY TECHNICIAN PHOSPHORUS Routine 11/09/2023 8:41 PM ELECTRICAL LABORATORY TECHNICIAN MAGNESIUM Routine 11/09/2023 8:41 PM ELECTRICAL LABORATORY TECHNICIAN BASIC METABOLIC PANEL Routine 11/09/2023 8:41 PM ELECTRICAL LABORATORY TECHNICIAN POCT GLUCOSE DEVICE Routine 11/09/2023 8 :38 PM ELECTRICAL LABORATORY TECHNICIAN POCT GLUCOSE DEVICE Routine 11/09/2023 4 :47 PM ELECTRICAL LABORATORY TECHNICIAN POCT GLUCOSE DEVICE Routine 11/09/2023 3 :18 [address]RICAL LABORATORY TECHNICIAN CT CHEST PE W CONTRAST IP Routine 11/09/2023 12:22 PM ELECTRICAL LABORATORY TECHNICIAN LIDOCAINE LEVEL Timed 11/09/2023 11:43 AM ELECTRICAL LABORATORY TECHNICIAN POCT GLUCOSE DEVICE Routine 11/09/2023 1 1:04 AM ELECTRICAL LABORATORY TECHNICIAN CRITICAL CARE Routine 11/09/2023 9:22 AM ELECTRICAL LABORATORY TECHNICIAN Paralysis of both lower limbs (CMS/HCC) (HCC) INSERT VENA CAVA FILTER IP Routine 11/09/2023 8:47 AM ELECTRICAL LABORATORY TECHNICIAN POCT GLUCOSE DEVICE Routine 11/09/2023 7 :07 AM ELECTRICAL LABORATORY TECHNICIAN POCT GLUCOSE DEVICE Routine 11/09/2023 3 :24 AM ELECTRICAL LABORATORY TECHNICIAN POCT GLUCOSE DEVICE Routine 11/08/2023 1 1:49 PM ELECTRICAL LABORATORY TECHNICIAN EGFR Routine 11/08/2023 9:01 PM ELECTRICAL LABORATORY TECHNICIAN CBC WITHOUT DIFFERENTIAL Routine 11/08/2023 9:01 PM ELECTRICAL LABORATORY TECHNICIAN PHOSPHORUS Routine 11/08/2023 9:01 PM ELECTRICAL LABORATORY TECHNICIAN MAGNESIUM Routine 11/08/2023 9:01 PM ELECTRICAL LABORATORY TECHNICIAN BASIC METABOLIC PANEL Routine 11/08/2023 9:01 PM ELECTRICAL LABORATORY TECHNICIAN POCT GLUCOSE DEVICE Routine 11/08/2023 7 :10 PM ELECTRICAL LABORATORY TECHNICIAN CRITICAL CARE Routine 11/08/2023 6:15 PM ELECTRICAL LABORATORY TECHNICIAN Paralysis of both lower limbs (CMS/HCC) (HCC) US VEIN DUPLEX LOWER EXTREMITY BILATERAL COMPLETE ED Urgent/IP Urgent 11/08/2023 3:07 PM ELECTRICAL LABORATORY TECHNICIAN POCT GLUCOSE DEVICE Routine 11/08/2023 3 :05 PM ELECTRICAL LABORATORY TECHNICIAN CRITICAL CARE Routine 11/08/2023 12:12 PM ELECTRICAL LABORATORY TECHNICIAN EGFR STAT 11/08/2023 11:51 AM ELECTRICAL LABORATORY TECHNICIAN CALCIUM, IONIZED STAT 11/08/2023 11:5 1 AM ELECTRICAL LABORATORY TECHNICIAN PROTIME-INR STAT 11/08/2023 11:51 AM ELECTRICAL LABORATORY TECHNICIAN CBC WITHOUT DIFFERENTIAL STAT 11/08/2023 11:51 AM ELECTRICAL LABORATORY TECHNICIAN PHOSPHORUS STAT 11/08/2023 11:51 AM ELECTRICAL LABORATORY TECHNICIAN MAGNESIUM STAT 11/08/2023 11:51 AM ELECTRICAL LABORATORY TECHNICIAN BASIC METABOLIC PANEL STAT 11/08/2023 11:51 AM ELECTRICAL LABORATORY TECHNICIAN POCT GLUCOSE DEVICE Routine 11/08/2023 1 1:41 AM ELECTRICAL LABORATORY TECHNICIAN TRANSFUSE PLASMA Timed 11/08/2023 9:32 AM ELECTRICAL LABORATORY TECHNICIAN POC BLOOD GAS AND CHEMISTRIES, ARTERIAL Routine 11/08/2023 8:22 AM ELECTRICAL LABORATORY TECHNICIAN TRANSFUSE RED BLOOD CELLS Timed 11/08/2023 7:36 AM ELECTRICAL LABORATORY TECHNICIAN POC BLOOD GAS AND CHEMISTRIES, ARTERIAL Routine 11/08/2023 7:05 AM ELECTRICAL LABORATORY TECHNICIAN POC BLOOD GAS AND CHEMISTRIES, ARTERIAL Routine 11/08/2023 6:00 AM ELECTRICAL LABORATORY TECHNICIAN TRANSFUSE RED BLOOD CELLS Timed 11/08/2023 5:58 AM ELECTRICAL LABORATORY TECHNICIAN TRANSFUSE RED BLOOD CELLS Timed 11/08/2023 4:52 AM ELECTRICAL LABORATORY TECHNICIAN POC BLOOD GAS AND CHEMISTRIES, ARTERIAL Routine 11/08/2023 4:18 AM ELECTRICAL LABORATORY TECHNICIAN REPAIR DURAL TEAR 11/08/2023 2:5 8 AM ELECTRICAL LABORATORY TECHNICIAN Paralysis of both lower limbs (CMS/HCC) ([facility]) Case Notes Called [facility] [phone] @ 0208 notified him we need him for emergent spine case in 235, he said It might be a while but he will be there. SPINAL CORD MONITORING 11/08/2023 2:58 AM ELECTRICAL LABORATORY TECHNICIAN Paralysis of both lower limbs (CMS/HCC) ([facility]) Case Notes Called [facility] [phone] @ 0208 notified him we need him for emergent spine case in 235, he said It might be a while but he will be there. LAMINECTOMY LUMBAR - POSTERIOR 11/08/2023 2:58 AM ELECTRICAL LABORATORY TECHNICIAN Paralysis of both lower limbs (CMS/HCC) ([facility]) Case Notes Called [facility] [phone] @ 0208 notified him we need him for emergent spine case in 235, he said It might be a while but he will be there. LAMINECTOMY THORACIC DECOMPRESSION 11/08/2023 2:58 AM ELECTRICAL LABORATORY TECHNICIAN Paralysis of both lower limbs (CMS/HCC) ([facility]) Case Notes Called [facility] [phone] @ [phone] notified him we need him for emergent spine case in 235, he said It might be a while but he will be there. PREPARE PLASMA STAT 11/08/2023 2:28 AM ELECTRICAL LABORATORY TECHNICIAN PREPARE RBC STAT 11/08/2023 2:28 AM ELECTRICAL LABORATORY TECHNICIAN ED CRITICAL CARE Routine 11/08/2023 2:[address]ATORY TE[address] CERVICAL THORACIC LUMBAR SPINE WO CONTRAST ED Urgent/IP Urgent 11/08/2023 2:09 AM ELECTRICAL LABORATORY TECHNICIAN XR SPINE LUMBAR 2 OR 3 VIEWS ED Urgent/IP Urgent 11/08/2023 1:14 AM ELECTRICAL LABORATORY TECHNICIAN XR SPINE THORACIC 3 VIEWS ED Urgent/IP Urgent 11/08/2023 1:13 AM ELECTRICAL LABORATORY TECHNICIAN MRI SPINE TOTAL COMPLETE WO CONTRAST ED Urgent/IP Urgent 11/08/2023 12:44 AM ELECTRICAL LABORATORY TECHNICIAN EGFR STAT 11/07/2023 11:01 PM ELECTRICAL LABORATORY TECHNICIAN APTT STAT 11/07/2023 11:01 PM ELECTRICAL LABORATORY TECHNICIAN PROTIME-INR STAT 11/07/2023 11:01 PM ELECTRICAL LABORATORY TECHNICIAN CBC WITHOUT DIFFERENTIAL STAT 11/07/2023 11:01 PM ELECTRICAL LABORATORY TECHNICIAN TYPE AND SCREEN STAT 11/07/2023 11:01 PM ELECTRICAL LABORATORY TECHNICIAN BASIC METABOLIC PANEL STAT 11/07/2023 11:01 PM ELECTRICAL LABORATORY TECHNICIAN [place] CRITICAL CARE ILL/INJURED PATIENT INIT 30-74 MIN Routine 11/07/2023 10:43 PM ELECTRICAL LABORATORY TECHNICIAN documented in this encounter Results * POCT glucose (11/16/2023 11:35 AM ELECTRICAL LABORATORY TECHNICIAN) Glucose, POC 166 70 - 199 mg/dL [facility] Blood 11/16/2023 11:3 5 AM ELECTRICAL LABORATORY TECHNICIAN 11/16/2023 11:35 AM ELECTRICAL LABORATORY TECHNICIAN Marcial Vu Jr., MD LAB POCT ORDERABLES - DEVICE Final Result [facility] [place] [address] * POCT glucose (11/16/2023 7:53 AM ELECTRICAL LABORATORY TECHNICIAN) Glucose, POC 142 70 - 199 mg/dL [facility] Blood 11/16/2023 7:53 AM ELECTRICAL LABORATORY TECHNICIAN 11/16/2023 7:53 AM ELECTRICAL LABORATORY TECHNICIAN us Marcial Vu Jr., MD LAB POCT ORDERABLES - DEVICE Final Result Performing Organization Address [facility] de Phone Number [facility] [place] [address] * POCT glucose (11/15/2023 9:20 PM ELECTRICAL LABORATORY TECHNICIAN) Glucose, POC 182 70 - 199 mg/dL [facility] Blood 11/15/2023 9:20 PM ELECTRICAL LABORATORY TECHNICIAN 11/15/2023 9:20 PM ELECTRICAL LABORATORY TECHNICIAN us Marcial Vu Jr., MD LAB POCT ORDERABLES - DEVICE Final Result Performing Organization Address [facility] de Phone Number [facility] [place] [address] * eGFR (11/15/2023 9:18 PM ELECTRICAL LABORATORY TECHNICIAN) Pathologist [facility] eGFR >90 >=60 mL/min/1. 73 m2 [facility] Comment: Interpretive Data Reference Interval Normal [...] interpretive data was last reviewed 2021. Blood 11/15/2023 9:18 PM ELECTRICAL LABORATORY TECHNICIAN 11/15/2023 9:38 PM ELECTRICAL LABORATORY TECHNICIAN Francisco Javier Aleman [employer] LAB BLOOD ORDERABLES Fi nal Result Performing Organization Address City/[facility] Co de Phone Number [facility] [place] [address] * Phosphorus (11/15/2023 9:18 PM ELECTRICAL LABORATORY TECHNICIAN) Phosphorus, pl 2.7 2.3 - 4.5 mg/dL [facility] Blood 11/15/2023 9:18 PM ELECTRICAL LABORATORY TECHNICIAN 11/15/2023 9:38 PM ELECTRICAL LABORATORY TECHNICIAN Francisco Javier Aleman NP LAB BLOOD ORDERABLES Fi nal Result Performing Organization Address [facility] Co de Phone Number [facility] [place] [address] * Magnesium (11/15/2023 9:18 PM ELECTRICAL LABORATORY TECHNICIAN) Magnesium 2.1 1.4 - 2.5 mg/dL [facility] Blood 11/15/2023 9:18 PM ELECTRICAL LABORATORY TECHNICIAN 11/15/2023 9:38 PM ELECTRICAL LABORATORY TECHNICIAN Francisco Javier Aleman [employer] LAB BLOOD ORDERABLES Fi nal Result Performing Organization Address City/[facility] Co de Phone Number [facility] [place] [address] * (ABNORMAL) CBC without differential (11/15/2023 9:18 PM ELECTRICAL LABORATORY TECHNICIAN) [facility] WBC 13.0(H) 3.8 - 9.9 K/cumm [facility] Hgb 9.1(L) 13.0 - 17.5 g/dL [facility] Hct 27.1(L) 38.9 - 50.3 % [facility] Plt 182 150 - 400 K/cumm [facility] MPV 11.2 9.1 - 12.3 fL [facility] RBC 2.99(L) 4.30 - 5.80 M/cumm [facility] MCV 90.6 81.3 - 96.4 fL [facility] MCH 30.4 27.1 - 33.3 pg [facility] MCHC 33.6 32.3 - 35.7 g/dL [facility] RDW CV 14.8 11.1 - 14.9 % [facility] RDW SD 47.6 35.7 - 48.1 fL [facility] NRBC abs 0.00 0.00 - 0.01 K/cumm [facility] Blood 11/15/2023 9:18 PM ELECTRICAL LABORATORY TECHNICIAN 11/15/2023 9:38 PM ELECTRICAL LABORATORY TECHNICIAN Francisco Javier Aleman [employer] LAB BLOOD ORDERABLES nal Result [facility] Department [place] [address] * (ABNORMAL) Basic metabolic panel (11/15/2023 9:18 PM ELECTRICAL LABORATORY TECHNICIAN) [facility] Sodium 135 135 - 145 mmol/L [facility] Potassium, pl 4.1 3.3 - 4.9 mmol/L [facility] Chloride 103 97 - 110 mmol/L [facility] CO2 25 22 - 32 mmol/L [facility] Anion gap 7 2 - 15 mmol/L [facility] BUN 24 6 - 25 mg/dL [facility] Creatinine 0.72(L) 0.80 - 1.30 mg/dL [facility] Glucose 185 70 - 199 mg/dL [facility] Comment: Interpretive Data Fasting glucose >/= [...] interpretive data was last revised 2022. Calcium 8.0(L) 8.5 - 10.3 mg/dL [facility] Blood 11/15/2023 9:18 PM ELECTRICAL LABORATORY TECHNICIAN 11/15/2023 9:38 PM ELECTRICAL LABORATORY TECHNICIAN Francisco Javier Aleman NP LAB BLOOD ORDERABLES Fi nal Result Performing Organization Address [facility]/ZIP Co de Phone Number [facility] Department [place] [address] * POCT glucose (11/15/2023 5:17 PM ELECTRICAL LABORATORY TECHNICIAN) Glucose, POC 163 70 - 199 mg/dL [facility] Blood 11/15/2023 5:17 PM ELECTRICAL LABORATORY TECHNICIAN 11/15/2023 5:17 PM ELECTRICAL LABORATORY TECHNICIAN Marcial Vu Jr., MD LAB POCT ORDERABLES - DEVICE Final Result [facility] Department [place] [address] * POCT glucose (11/15/2023 12:20 PM ELECTRICAL LABORATORY TECHNICIAN) Glucose, POC 170 70 - 199 mg/dL [facility] Blood 11/15/2023 12:2 0 PM ELECTRICAL LABORATORY TECHNICIAN 11/15/2023 12:20 PM ELECTRICAL LABORATORY TECHNICIAN Marcial Vu Jr., MD LAB POCT ORDERABLES - DEVICE Final Result Performing Organization Address City/[facility]/ZIP Co de Phone Number [facility] [place] [address] * POCT glucose (11/15/2023 8:02 AM ELECTRICAL LABORATORY TECHNICIAN) Glucose, POC 157 70 - 199 mg/dL [facility] Blood 11/15/2023 8:02 AM ELECTRICAL LABORATORY TECHNICIAN 11/15/2023 8:02 AM ELECTRICAL LABORATORY TECHNICIAN Marcial Vu Jr., MD LAB POCT ORDERABLES - DEVICE Final Result Performing Organization Address [facility] [place] [address] * POCT glucose (11/14/2023 8:39 PM ELECTRICAL LABORATORY TECHNICIAN) Glucose, POC 180 70 - 199 mg/dL [facility] Blood 11/14/2023 8:39 PM ELECTRICAL LABORATORY TECHNICIAN 11/14/2023 8:39 PM ELECTRICAL LABORATORY TECHNICIAN Marcial Vu Jr., MD LAB POCT ORDERABLES - DEVICE Final Result Performing Organization Address [facility] Co de Phone Number [facility] [place] [address] * POCT glucose (11/14/2023 5:44 PM ELECTRICAL LABORATORY TECHNICIAN) Glucose, POC 193 70 - 199 mg/dL [facility] Blood 11/14/2023 5:44 PM ELECTRICAL LABORATORY TECHNICIAN 11/14/2023 5:44 PM ELECTRICAL LABORATORY TECHNICIAN Marcial Vu Jr., MD LAB POCT ORDERABLES - DEVICE Final Result Performing Organization Address City/[facility]/ZIP Co de Phone Number [facility] [place] [address] * XR Spine Thoracic 2 Views (11/14/2023 1:51 PM ELECTRICAL LABORATORY TECHNICIAN) Anatomical Region Laterality Modality Spine N/A Computed Radiogr aphy 11/14/2023 2:19 PM ELECTRICAL LABORATORY TECHNICIAN Impressions 11/14/2023 2:19 PM ELECTRICAL LABORATORY TECHNICIAN 1. ??Unchanged combined posterior and anterior instrumented L4-L5 fusion. Electronically signed by: Stefan Gee M.D. Narrative 11/14/2023 2:19 PM ELECTRICAL LABORATORY TECHNICIAN EXAMINATION: XR SPINE CERVICAL 2 OR 3 VIEWS, XR SPINE THORACIC 2 VIEWS, XR SPINE LUMBAR 2 OR 3 VIEWS HISTORY: Spinal fusion ?? FINDINGS: 2 views of the cervical spine, 2 views of the thoracic spine, and 2 views of the lumbar spine are compared to radiographs 11/08/2023. Anatomic alignment of the cervical spine. ??Vertebral body heights are preserved. ??Multilevel degenerative disc disease greatest and mild at C5-C6. ??Heterotopic desiccation the nuchal ligament. Exaggerated thoracic kyphosis. ??Thoracic vertebral bodies are preserved. ??There is multilevel mild to moderate thoracic degenerative disc disease with findings of diffuse idiopathic skeletal hyperostosis. Posterior instrumented spinal fusion with combined anterior fusion spanning L4-L5. ??Vertebral body heights are preserved. ??There is multilevel mild to moderate degenerative disc disease. ??Findings of diffuse idiopathic skeletal hyperostosis. ??Inferior vena cava filter overlies the right paraspinal soft tissues. ??Left ureteral stent overlies the left paraspinal soft tissues. Procedure Note Stefan Gee MD - 11/14/2023 EXAMINATION: XR SPINE CERVICAL 2 OR 3 VIEWS, XR SPINE THORACIC 2 VIEWS, XR SPINE LUMBAR 2 OR 3 VIEWS HISTORY: Spinal fusion FINDINGS: 2 views of the cervical spine, 2 views of the thoracic spine, and 2 views of the lumbar spine are compared to radiographs 11/08/2023. Anatomic alignment of the cervical spine. Vertebral body heights are preserved. Multilevel degenerative disc disease greatest and mild at C5-C6. Heterotopic desiccation the nuchal ligament. Exaggerated thoracic kyphosis. Thoracic vertebral bodies are preserved. There is multilevel mild to moderate thoracic degenerative disc disease with findings of diffuse idiopathic skeletal hyperostosis. Posterior instrumented spinal fusion with combined anterior fusion spanning L4-L5. Vertebral body heights are preserved. There is multilevel mild to moderate degenerative disc disease. Findings of diffuse idiopathic skeletal hyperostosis. Inferior vena cava filter overlies the right paraspinal soft tissues. Left ureteral stent overlies the left paraspinal soft tissues. IMPRESSION: 1. Unchanged combined posterior and anterior instrumented L4-L5 fusion. Electronically signed by: Stefan Gee M.D. us [facility] M [facility] [employer] IMG XR PROCEDURES F inal Result * XR Spine Lumbar 2 or 3 Views (11/14/2023 1:51 PM ELECTRICAL LABORATORY TECHNICIAN) Anatomical Region Laterality Modality Spine N/A Computed Radiogr aphy 11/14/2023 2:19 PM ELECTRICAL LABORATORY TECHNICIAN Impressions 11/14/2023 2:19 PM ELECTRICAL LABORATORY TECHNICIAN 1. ??Unchanged combined posterior and anterior instrumented L4-L5 fusion. Electronically signed by: Stefan Gee M.D. Narrative 11/14/2023 2:19 PM ELECTRICAL LABORATORY TECHNICIAN EXAMINATION: XR SPINE CERVICAL 2 OR 3 VIEWS, XR SPINE THORACIC 2 VIEWS, XR SPINE LUMBAR 2 OR 3 VIEWS HISTORY: Spinal fusion ?? FINDINGS: 2 views of the cervical spine, 2 views of the thoracic spine, and 2 views of the lumbar spine are compared to radiographs 11/08/2023. Anatomic alignment of the cervical spine. ??Vertebral body heights are preserved. ??Multilevel degenerative disc disease greatest and mild at C5-C6. ??Heterotopic desiccation the nuchal ligament. Exaggerated thoracic kyphosis. ??Thoracic vertebral bodies are preserved. ??There is multilevel mild to moderate thoracic degenerative disc disease with findings of diffuse idiopathic skeletal hyperostosis. Posterior instrumented spinal fusion with combined anterior fusion spanning L4-L5. ??Vertebral body heights are preserved. ??There is multilevel mild to moderate degenerative disc disease. ??Findings of diffuse idiopathic skeletal hyperostosis. ??Inferior vena cava filter overlies the right paraspinal soft tissues. ??Left ureteral stent overlies the left paraspinal soft tissues. Procedure Note Stefan Gee MD - 11/14/2023 EXAMINATION: XR SPINE CERVICAL 2 OR 3 VIEWS, XR SPINE THORACIC 2 VIEWS, XR SPINE LUMBAR 2 OR 3 VIEWS HISTORY: Spinal fusion FINDINGS: 2 views of the cervical spine, 2 views of the thoracic spine, and 2 views of the lumbar spine are compared to radiographs 11/08/2023. Anatomic alignment of the cervical spine. Vertebral body heights are preserved. Multilevel degenerative disc disease greatest and mild at C5-C6. Heterotopic desiccation the nuchal ligament. Exaggerated thoracic kyphosis. Thoracic vertebral bodies are preserved. There is multilevel mild to moderate thoracic degenerative disc disease with findings of diffuse idiopathic skeletal hyperostosis. Posterior instrumented spinal fusion with combined anterior fusion spanning L4-L5. Vertebral body heights are preserved. There is multilevel mild to moderate degenerative disc disease. Findings of diffuse idiopathic skeletal hyperostosis. Inferior vena cava filter overlies the right paraspinal soft tissues. Left ureteral stent overlies the left paraspinal soft tissues. IMPRESSION: 1. Unchanged combined posterior and anterior instrumented L4-L5 fusion. Electronically signed by: Stefan Gee M.D. Rosa M Myers [employer] IMG XR PROCEDURES F inal Result * XR Spine Cervical 2 or 3 Views (11/14/2023 1:50 PM ELECTRICAL LABORATORY TECHNICIAN) Anatomical Region Laterality Modality Spine N/A Computed Radiogr aphy 11/14/2023 2:19 PM ELECTRICAL LABORATORY TECHNICIAN Impressions 11/14/2023 2:19 PM ELECTRICAL LABORATORY TECHNICIAN 1. ??Unchanged combined posterior and anterior instrumented L4-L5 fusion. Electronically signed by: Stefan Gee M.D. Narrative 11/14/2023 2:19 PM ELECTRICAL LABORATORY TECHNICIAN EXAMINATION: XR SPINE CERVICAL 2 OR 3 VIEWS, XR SPINE THORACIC 2 VIEWS, XR SPINE LUMBAR 2 OR 3 VIEWS HISTORY: Spinal fusion ?? FINDINGS: 2 views of the cervical spine, 2 views of the thoracic spine, and 2 views of the lumbar spine are compared to radiographs 11/08/2023. Anatomic alignment of the cervical spine. ??Vertebral body heights are preserved. ??Multilevel degenerative disc disease greatest and mild at C5-C6. ??Heterotopic desiccation the nuchal ligament. Exaggerated thoracic kyphosis. ??Thoracic vertebral bodies are preserved. ??There is multilevel mild to moderate thoracic degenerative disc disease with findings of diffuse idiopathic skeletal hyperostosis. Posterior instrumented spinal fusion with combined anterior fusion spanning L4-L5. ??Vertebral body heights are preserved. ??There is multilevel mild to moderate degenerative disc disease. ??Findings of diffuse idiopathic skeletal hyperostosis. ??Inferior vena cava filter overlies the right paraspinal soft tissues. ??Left ureteral stent overlies the left paraspinal soft tissues. Procedure Note Stefan Gee MD - 11/14/2023 EXAMINATION: XR SPINE CERVICAL 2 OR 3 VIEWS, XR SPINE THORACIC 2 VIEWS, XR SPINE LUMBAR 2 OR 3 VIEWS HISTORY: Spinal fusion FINDINGS: 2 views of the cervical spine, 2 views of the thoracic spine, and 2 views of the lumbar spine are compared to radiographs 11/08/2023. Anatomic alignment of the cervical spine. Vertebral body heights are preserved. Multilevel degenerative disc disease greatest and mild at C5-C6. Heterotopic desiccation the nuchal ligament. Exaggerated thoracic kyphosis. Thoracic vertebral bodies are preserved. There is multilevel mild to moderate thoracic degenerative disc disease with findings of diffuse idiopathic skeletal hyperostosis. Posterior instrumented spinal fusion with combined anterior fusion spanning L4-L5. Vertebral body heights are preserved. There is multilevel mild to moderate degenerative disc disease. Findings of diffuse idiopathic skeletal hyperostosis. Inferior vena cava filter overlies the right paraspinal soft tissues. Left ureteral stent overlies the left paraspinal soft tissues. IMPRESSION: 1. Unchanged combined posterior and anterior instrumented L4-L5 fusion. Electronically signed by: Stefan Gee M.D. [facility] M [facility] [employer] IMG XR PROCEDURES F inal Result * POCT glucose (11/14/2023 11:52 AM ELECTRICAL LABORATORY TECHNICIAN) [facility] Signature Glucose, POC 150 70 - 199 mg/dL [facility] Blood 11/14/2023 11:5 2 AM ELECTRICAL LABORATORY TECHNICIAN 11/14/2023 11:52 AM ELECTRICAL LABORATORY TECHNICIAN Marcial Vu Jr., MD LAB POCT ORDERABLES - DEVICE Final Result [facility] Department [place] [address] * POCT glucose (11/14/2023 8:04 AM ELECTRICAL LABORATORY TECHNICIAN) Glucose, POC 144 70 - 199 mg/dL [facility] Blood 11/14/2023 8:04 AM ELECTRICAL LABORATORY TECHNICIAN 11/14/2023 8:04 AM ELECTRICAL LABORATORY TECHNICIAN Marcial Vu Jr., MD LAB POCT ORDERABLES - DEVICE Final Result Performing Organization Address [facility] de Phone Number [facility] Department [place] [address] * POCT glucose (11/13/2023 8:11 PM ELECTRICAL LABORATORY TECHNICIAN) Pathologist [facility] Glucose, POC 150 70 - 199 mg/dL [facility] Blood 11/13/2023 8:11 PM ELECTRICAL LABORATORY TECHNICIAN 11/13/2023 8:11 PM ELECTRICAL LABORATORY TECHNICIAN Marcial Vu Jr., MD LAB POCT ORDERABLES - DEVICE Final Result Performing Organization Address [facility] de Phone Number [facility] [place] [address] * eGFR (11/13/2023 8:07 PM ELECTRICAL LABORATORY TECHNICIAN) [facility] eGFR >90 >=60 mL/min/1. 73 m2 [facility] Comment: Interpretive Data Reference Interval Normal [...] interpretive data was last reviewed 2021. Blood 11/13/2023 8:07 PM ELECTRICAL LABORATORY TECHNICIAN 11/13/2023 8:25 PM ELECTRICAL LABORATORY TECHNICIAN Francisco Javier Aleman [employer] LAB BLOOD ORDERABLES Fi nal Result Performing Organization Address City/[facility] Co de Phone Number [facility] [place] [address] * Phosphorus (11/13/2023 8:07 PM ELECTRICAL LABORATORY TECHNICIAN) Phosphorus, pl 2.7 2.3 - 4.5 mg/dL [facility] Blood 11/13/2023 8:07 PM ELECTRICAL LABORATORY TECHNICIAN 11/13/2023 8:20 PM ELECTRICAL LABORATORY TECHNICIAN Francisco Javier Aleman NP LAB BLOOD ORDERABLES Fi nal Result Performing Organization Address [facility] Co de Phone Number [facility] [place] [address] * Magnesium (11/13/2023 8:07 PM ELECTRICAL LABORATORY TECHNICIAN) Magnesium 2.1 1.4 - 2.5 mg/dL [facility] Blood 11/13/2023 8:07 PM ELECTRICAL LABORATORY TECHNICIAN 11/13/2023 8:20 PM ELECTRICAL LABORATORY TECHNICIAN Francisco Javier Aleman NP LAB BLOOD ORDERABLES Fi nal Result Performing Organization Address City/[facility] Co de Phone Number [facility] [place] [address] * (ABNORMAL) CBC without differential (11/13/2023 8:07 PM ELECTRICAL LABORATORY TECHNICIAN) [facility] WBC 12.6(H) 3.8 - 9.9 K/cumm [facility] Hgb 9.1(L) 13.0 - 17.5 g/dL [facility] Hct 28.0(L) 38.9 - 50.3 % [facility] Plt 188 150 - 400 K/cumm [facility] MPV 11.3 9.1 - 12.3 fL [facility] RBC 3.06(L) 4.30 - 5.80 M/cumm [facility] MCV 91.5 81.3 - 96.4 fL [facility] MCH 29.7 27.1 - 33.3 pg [facility] MCHC 32.5 32.3 - 35.7 g/dL [facility] RDW CV 14.0 11.1 - 14.9 % [facility] RDW SD 45.8 35.7 - 48.1 fL [facility] NRBC abs 0.00 0.00 - 0.01 K/cumm [facility] Blood 11/13/2023 8:07 PM ELECTRICAL LABORATORY TECHNICIAN 11/13/2023 8:20 PM ELECTRICAL LABORATORY TECHNICIAN Francisco Javier Aleman NP LAB BLOOD ORDERABLES Fi nal Result [facility] [place] [address] * (ABNORMAL) Basic metabolic panel (11/13/2023 8:07 PM ELECTRICAL LABORATORY TECHNICIAN) [facility] Sodium 136 135 - 145 mmol/L [facility] Potassium, pl 4.6 3.3 - 4.9 mmol/L [facility] Chloride 102 97 - 110 mmol/L [facility] CO2 26 22 - 32 mmol/L [facility] Anion gap 8 2 - 15 mmol/L [facility] BUN 27(H) 6 - 25 mg/dL [facility] Creatinine 0.71(L) 0.80 - 1.30 mg/dL [facility] Glucose 138 70 - 199 mg/dL [facility] Comment: Interpretive Data Fasting glucose >/= [...] interpretive data was last revised 2022. Calcium 8.4(L) 8.5 - 10.3 mg/dL [facility] Blood 11/13/2023 8:07 PM ELECTRICAL LABORATORY TECHNICIAN 11/13/2023 8:20 PM ELECTRICAL LABORATORY TECHNICIAN Francisco Javier Aleman NP LAB BLOOD ORDERABLES Fi nal Result Performing Organization Address City/[facility]/ZIP Co de Phone Number [facility] [place] [address] * POCT glucose (11/13/2023 4:58 PM ELECTRICAL LABORATORY TECHNICIAN) Glucose, POC 188 70 - 199 mg/dL [facility] Blood 11/13/2023 4:58 PM ELECTRICAL LABORATORY TECHNICIAN 11/13/2023 4:58 PM ELECTRICAL LABORATORY TECHNICIAN Marcial Vu Jr., MD LAB POCT ORDERABLES - DEVICE Final Result [facility] [place] [address] * POCT glucose (11/13/2023 12:22 PM ELECTRICAL LABORATORY TECHNICIAN) Glucose, POC 138 70 - 199 mg/dL [facility] Blood 11/13/2023 12:2 2 PM ELECTRICAL LABORATORY TECHNICIAN 11/13/2023 12:22 PM ELECTRICAL LABORATORY TECHNICIAN us Marcial Vu Jr., MD LAB POCT ORDERABLES - DEVICE Final Result Performing Organization Address [facility] de Phone Number [facility] [place] [address] * POCT glucose (11/13/2023 7:34 AM ELECTRICAL LABORATORY TECHNICIAN) Glucose, POC 138 70 - 199 mg/dL [facility] Blood 11/13/2023 7:34 AM ELECTRICAL LABORATORY TECHNICIAN 11/13/2023 7:34 AM ELECTRICAL LABORATORY TECHNICIAN us Marcial Vu Jr., MD LAB POCT ORDERABLES - DEVICE Final Result Performing Organization Address [facility] Phone Number [facility] [place] [place] [address] * (ABNORMAL) POCT glucose (11/12/2023 9:34 PM ELECTRICAL LABORATORY TECHNICIAN) Glucose, POC 206(H) 70 - 199 mg/dL [facility] Blood 11/12/2023 9:34 PM ELECTRICAL LABORATORY TECHNICIAN 11/12/2023 9:34 PM ELECTRICAL LABORATORY TECHNICIAN us Marcial Vu Jr., MD LAB POCT ORDERABLES - DEVICE Final Result Performing Organization Address [facility] de Phone Number [facility] [place] [address] * POCT glucose (11/12/2023 5:15 PM ELECTRICAL LABORATORY TECHNICIAN) Glucose, POC 180 70 - 199 mg/dL [facility] Blood 11/12/2023 5:15 PM ELECTRICAL LABORATORY TECHNICIAN 11/12/2023 5:15 PM ELECTRICAL LABORATORY TECHNICIAN us Marcial Vu Jr., MD LAB POCT ORDERABLES - DEVICE Final Result Performing Organization Address [facility] [place] [address] * POCT glucose (11/12/2023 11:25 AM ELECTRICAL LABORATORY TECHNICIAN) Glucose, POC 161 70 - 199 mg/dL [facility] Blood 11/12/2023 11:2 5 AM ELECTRICAL LABORATORY TECHNICIAN 11/12/2023 11:25 AM ELECTRICAL LABORATORY TECHNICIAN Marcial Vu Jr., MD LAB POCT ORDERABLES - [place] [address] * POCT glucose (11/12/2023 7:59 AM ELECTRICAL LABORATORY TECHNICIAN) Glucose, POC 128 70 - 199 mg/dL [facility] Blood 11/12/2023 7:59 AM ELECTRICAL LABORATORY TECHNICIAN 11/12/2023 7:59 AM ELECTRICAL LABORATORY TECHNICIAN Marcial Vu Jr., MD LAB POCT ORDERABLES - DEVICE Final Result Performing Organization Address City/[facility]/[place] [address] * POCT glucose (11/11/2023 9:38 PM ELECTRICAL LABORATORY TECHNICIAN) Glucose, POC 166 70 - 199 mg/dL [facility] Blood 11/11/2023 9:38 PM ELECTRICAL LABORATORY TECHNICIAN 11/11/2023 9:38 PM ELECTRICAL LABORATORY TECHNICIAN Marcial Vu Jr., MD LAB POCT ORDERABLES - [place] [address] * eGFR (11/11/2023 9:35 PM ELECTRICAL LABORATORY TECHNICIAN) Pathologist [facility] eGFR >90 >=60 mL/min/1. 73 m2 [facility] Comment: Interpretive Data Reference Interval Normal [...] interpretive data was last reviewed 2021. Blood 11/11/2023 9:35 PM ELECTRICAL LABORATORY TECHNICIAN 11/11/2023 9:54 PM ELECTRICAL LABORATORY TECHNICIAN Vicki Rehman NP LAB BLOOD ORDERABLES F inal Result [facility] Department of Laboratories [place], [place] [id number] * Phosphorus (11/11/2023 9:35 PM ELECTRICAL LABORATORY TECHNICIAN) [facility] Phosphorus, pl 2.4 2.3 - 4.5 mg/dL [facility] Blood 11/11/2023 9:35 PM ELECTRICAL LABORATORY TECHNICIAN 11/11/2023 9:54 PM ELECTRICAL LABORATORY TECHNICIAN Vicki Rehman [employer] LAB BLOOD ORDERABLES F inal Result [facility] [place] [address] * Magnesium (11/11/2023 9:35 PM ELECTRICAL LABORATORY TECHNICIAN) [facility] Magnesium 2.1 1.4 - 2.5 mg/dL [facility] Blood 11/11/2023 9:35 PM ELECTRICAL LABORATORY TECHNICIAN 11/11/2023 9:54 PM ELECTRICAL LABORATORY TECHNICIAN Vicki Rehman NP LAB BLOOD ORDERABLES F inal Result Performing Organization Address [facility] Co de Phone Number [facility] [place] [address] * (ABNORMAL) CBC without differential (11/11/2023 9:35 PM ELECTRICAL LABORATORY TECHNICIAN) [facility] WBC 9.1 3.8 - 9.9 K/cumm [facility] Hgb 8.8(L) 13.0 - 17.5 g/dL [facility] Hct 25.8(L) 38.9 - 50.3 % [facility] Plt 187 150 - 400 K/cumm [facility] MPV 11.1 9.1 - 12.3 fL [facility] RBC 2.88(L) 4.30 - 5.80 M/cumm [facility] MCV 89.6 81.3 - 96.4 fL [facility] MCH 30.6 27.1 - 33.3 pg [facility] MCHC 34.1 32.3 - 35.7 g/dL [facility] RDW CV 13.8 11.1 - 14.9 % [facility] RDW SD 45.6 35.7 - 48.1 fL [facility] NRBC abs 0.00 0.00 - 0.01 K/cumm [facility] Blood 11/11/2023 9:35 PM ELECTRICAL LABORATORY TECHNICIAN 11/11/2023 9:54 PM ELECTRICAL LABORATORY TECHNICIAN Vicki Rehman NP LAB BLOOD ORDERABLES F inal Result Performing Organization Address City/[facility]/ZIP Co de Phone Number [facility] Department [place] [address] * (ABNORMAL) Basic metabolic panel (11/11/2023 9:35 PM ELECTRICAL LABORATORY TECHNICIAN) Pathologist [facility] Sodium 135 135 - 145 mmol/L [facility] Potassium, pl 4.6 3.3 - 4.9 mmol/L [facility] Chloride 103 97 - 110 mmol/L [facility] CO2 24 22 - 32 mmol/L [facility] Anion gap 8 2 - 15 mmol/L [facility] BUN 22 6 - 25 mg/dL [facility] Creatinine 0.81 0.80 - 1.30 mg/dL [facility] Glucose 159 70 - 199 mg/dL [facility] Comment: Interpretive Data Fasting glucose >/= [...] 2022. Calcium 8.2(L) 8.5 - 10.3 mg/dL [facility] Blood 11/11/2023 9:35 PM ELECTRICAL LABORATORY TECHNICIAN 11/11/2023 9:54 PM ELECTRICAL LABORATORY TECHNICIAN Vicki Rehman NP LAB BLOOD ORDERABLES F inal Result Performing Organization Address City/[facility]/ZIP Co de Phone Number [facility] [place] [address] * POCT glucose (11/11/2023 5:37 PM ELECTRICAL LABORATORY TECHNICIAN) Glucose, POC 103 70 - 199 mg/dL [facility] Blood 11/11/2023 5:37 PM ELECTRICAL LABORATORY TECHNICIAN 11/11/2023 5:37 PM ELECTRICAL LABORATORY TECHNICIAN Marcial Vu Jr., MD LAB POCT ORDERABLES - DEVICE Final Result [facility] [place] [place] [address] * Transfuse RBC (11/11/2023 5:22 PM ELECTRICAL LABORATORY TECHNICIAN) Blood Dorie Sofia [employer] BLOOD TRANSFUSION ORDER CLEMENTINE Final Result Performing Organization Address City/[facility] Co de Phone Number [facility] [place] [place] [address] * Transfuse RBC: 1 Units (11/11/2023 5:22 PM ELECTRICAL LABORATORY TECHNICIAN) Blood Result [facility] Dorie Soifa NP BLOOD TRANSFUSION ORDER CLEMENTINE Final Result * (ABNORMAL) CBC without differential (11/11/2023 5:08 PM ELECTRICAL LABORATORY TECHNICIAN) [facility] WBC 10.1(H) 3.8 - 9.9 K/cumm [facility] Hgb 9.7(L) 13.0 - 17.5 g/dL [facility] Hct 29.6(L) 38.9 - 50.3 % [facility] Plt 226 150 - 400 K/cumm [facility] MPV 10.9 9.1 - 12.3 fL [facility] RBC 3.24(L) 4.30 - 5.80 M/cumm [facility] MCV 91.4 81.3 - 96.4 fL [facility] MCH 29.9 27.1 - 33.3 pg [facility] MCHC 32.8 32.3 - 35.7 g/dL [facility] RDW CV 13.9 11.1 - 14.9 % [facility] RDW SD 47.0 35.7 - 48.1 fL [facility] NRBC abs 0.00 0.00 - 0.01 K/cumm [facility] Blood 11/11/2023 5:08 PM ELECTRICAL LABORATORY TECHNICIAN 11/11/2023 5:32 PM ELECTRICAL LABORATORY TECHNICIAN Narrative [facility] - 11/11/2023 5:41 PM ELECTRICAL LABORATORY TECHNICIAN 1 hour after transfusion of red blood cells is complete Dorie Sofia [employer] LAB BLOOD ORDERABLES Fi nal Result Performing Organization Address [facility] Co de Phone Number [facility] [place] [address] * (ABNORMAL) Vancomycin level trough (11/11/2023 2:44 PM ELECTRICAL LABORATORY TECHNICIAN) Pathologist [facility] Vancomycin trough 21.1(H) 10.0 - 20.0 mcg/mL [facility] Comment:Reviewed Blood 11/11/2023 2:44 PM ELECTRICAL LABORATORY TECHNICIAN 11/11/2023 2:50 PM ELECTRICAL LABORATORY TECHNICIAN Dorie Sofia [employer] LAB BLOOD ORDERABLES Fi nal Result Performing Organization Address [facility] de Phone Number [facility] [place] [address] * POCT glucose (11/11/2023 12:11 PM ELECTRICAL LABORATORY TECHNICIAN) Pathologist [facility] Glucose, POC 155 70 - 199 mg/dL [facility] Blood 11/11/2023 12:1 1 PM ELECTRICAL LABORATORY TECHNICIAN 11/11/2023 12:11 PM ELECTRICAL LABORATORY TECHNICIAN Marcial Vu Jr., MD LAB POCT ORDERABLES - DEVICE Final Result Performing Organization Address [facility] Co de Phone Number [facility] [place] [address] * Type and screen (11/11/2023 11:29 AM ELECTRICAL LABORATORY TECHNICIAN) Pathologist [facility] Jigna, indirect Negative ABO Rh O Positive [facility] Blood 11/11/2023 11:2 9 AM ELECTRICAL LABORATORY TECHNICIAN 11/11/2023 11:42 AM ELECTRICAL LABORATORY TECHNICIAN Narrative [facility] - 11/11/2023 12:35 PM ELECTRICAL LABORATORY TECHNICIAN Has the patient had Daratumumab or Isatuximab in the past 6 months?->Unknown Dorie Sofia NP LAB BLOOD BANK TEST ORD ERABLES Final Result Performing Organization Address [facility] Co de Phone Number [facility] [place] [address] * Prepare RBC: 1 Units (11/11/2023 10:08 AM ELECTRICAL LABORATORY TECHNICIAN) [facility] Product code [id number] Unit Number [id number] [facility] Product Blood Type OPOS [facility] Dispense Status PRESUMED TRANSFUSED [facility] Blood 11/11/2023 10:0 8 AM ELECTRICAL LABORATORY TECHNICIAN 11/11/2023 10:09 AM ELECTRICAL LABORATORY TECHNICIAN Narrative [facility] - 11/12/2023 12:45 AM ELECTRICAL LABORATORY TECHNICIAN Are special requirements needed? (All products are leukoreduced and CMV- safe)- >No Date required:-[id number] LRRBC # of [id number] Reasons:-Active bleeding, Hgb <8 g/dL} Dorie Sofia NP BLOOD BANK PRODUCT ORDE RABLES Final Result Performing Organization Address [facility] Co de Phone Number [facility] Department [place] [address] * POCT glucose (11/11/2023 8:33 AM ELECTRICAL LABORATORY TECHNICIAN) [facility] Glucose, POC 141 70 - 199 mg/dL [facility] Blood 11/11/2023 8:33 AM ELECTRICAL LABORATORY TECHNICIAN 11/11/2023 8:33 AM ELECTRICAL LABORATORY TECHNICIAN Marcial Vu Jr., MD LAB POCT ORDERABLES - DEVICE Final Result Performing Organization Address [facility] Co de Phone Number [facility] [place] [address] * eGFR (11/10/2023 11:13 PM ELECTRICAL LABORATORY TECHNICIAN) eGFR >90 >=60 mL/min/1. 73 m2 [facility] Comment: Interpretive Data Reference Interval Normal [...] interpretive data was last reviewed 2021. Blood 11/10/2023 11:1 3 PM ELECTRICAL LABORATORY TECHNICIAN 11/10/2023 11:58 PM ELECTRICAL LABORATORY TECHNICIAN us Vicki Rehman NP LAB BLOOD ORDERABLES F inal Result Performing Organization Address [facility]/ZIP Co de Phone Number [facility] [place] [address] * Lidocaine level (11/10/2023 11:13 PM ELECTRICAL LABORATORY TECHNICIAN) Pathologist [facility] Lidocaine (Xylocaine) 1.9 1.5 - 5.0 mcg/mL [facility] Blood 11/10/2023 11:1 3 PM ELECTRICAL LABORATORY TECHNICIAN 11/10/2023 11:55 PM ELECTRICAL LABORATORY TECHNICIAN Marcial Vu Jr., MD LAB BLOOD ORDERABLE S Final Result [facility] [place] [address] * Phosphorus (11/10/2023 11:13 PM ELECTRICAL LABORATORY TECHNICIAN) Pathologist [facility] Phosphorus, pl 2.4 2.3 - 4.5 mg/dL [facility] Blood 11/10/2023 11:1 3 PM ELECTRICAL LABORATORY TECHNICIAN 11/10/2023 11:55 PM ELECTRICAL LABORATORY TECHNICIAN Vicki Rehman NP LAB BLOOD ORDERABLES F inal Result Performing Organization Address [facility] de Phone Number [facility] [place] [place] [address] * Magnesium (11/10/2023 11:13 PM ELECTRICAL LABORATORY TECHNICIAN) [facility] Magnesium 2.3 1.4 - 2.5 mg/dL [facility] Blood 11/10/2023 11:1 3 PM ELECTRICAL LABORATORY TECHNICIAN 11/10/2023 11:55 PM ELECTRICAL LABORATORY TECHNICIAN Vicki Rehman NP LAB BLOOD ORDERABLES F inal Result Performing Organization Address City/[facility] Co de Phone Number [facility] [place] [address] * (ABNORMAL) CBC without differential (11/10/2023 11:13 PM ELECTRICAL LABORATORY TECHNICIAN) [facility] WBC 9.2 3.8 - 9.9 K/cumm [facility] Hgb 7.5(L) 13.0 - 17.5 g/dL [facility] Hct 22.6(L) 38.9 - 50.3 % [facility] Plt 211 150 - 400 K/cumm [facility] MPV 11.1 9.1 - 12.3 fL [facility] RBC 2.47(L) 4.30 - 5.80 M/cumm [facility] MCV 91.5 81.3 - 96.4 fL [facility] MCH 30.4 27.1 - 33.3 pg [facility] MCHC 33.2 32.3 - 35.7 g/dL [facility] RDW CV 14.0 11.1 - 14.9 % [facility] RDW SD 46.8 35.7 - 48.1 fL [facility] NRBC abs 0.00 0.00 - 0.01 K/cumm [facility] Blood 11/10/2023 11:1 3 PM ELECTRICAL LABORATORY TECHNICIAN 11/10/2023 11:41 PM ELECTRICAL LABORATORY TECHNICIAN Vicki Rehman NP LAB BLOOD ORDERABLES F inal Result [facility] Department [place] [address] * (ABNORMAL) Basic metabolic panel (11/10/2023 11:13 PM ELECTRICAL LABORATORY TECHNICIAN) Sodium 135 135 - 145 mmol/L [facility] Potassium, pl 4.3 3.3 - 4.9 mmol/L [facility] Chloride 104 97 - 110 mmol/L [facility] CO2 24 22 - 32 mmol/L [facility] Anion gap 7 2 - 15 mmol/L [facility] BUN 22 6 - 25 mg/dL [facility] Creatinine 0.82 0.80 - 1.30 mg/dL [facility] Glucose 118 70 - 199 mg/dL [facility] Comment: Interpretive Data Fasting glucose >/= [...] interpretive data was last revised 2022. Calcium 7.9(L) 8.5 - 10.3 mg/dL [facility] Blood 11/10/2023 11:1 3 PM ELECTRICAL LABORATORY TECHNICIAN 11/10/2023 11:55 PM ELECTRICAL LABORATORY TECHNICIAN Vicki Rehman NP LAB BLOOD ORDERABLES F inal Result Performing Organization Address [facility] Co de Phone Number [facility] [place] [address] * POCT glucose (11/10/2023 8:50 PM ELECTRICAL LABORATORY TECHNICIAN) Glucose, POC 170 70 - 199 mg/dL [facility] Blood 11/10/2023 8:50 PM ELECTRICAL LABORATORY TECHNICIAN 11/10/2023 8:50 PM ELECTRICAL LABORATORY TECHNICIAN Marcial Vu Jr., MD LAB POCT ORDERABLES - DEVICE Final Result Performing Organization Address [facility] Co de Phone Number [facility] [place] [address] * (ABNORMAL) POCT glucose (11/10/2023 5:31 PM ELECTRICAL LABORATORY TECHNICIAN) Glucose, POC 207(H) 70 - 199 mg/dL [facility] Blood 11/10/2023 5:31 PM ELECTRICAL LABORATORY TECHNICIAN 11/10/2023 5:31 PM ELECTRICAL LABORATORY TECHNICIAN Marcial Vu Jr., MD LAB POCT ORDERABLES - DEVICE Final Result Performing Organization Address [facility] Co de Phone Number [facility] [place] [address] * (ABNORMAL) POCT glucose (11/10/2023 11:47 AM ELECTRICAL LABORATORY TECHNICIAN) Glucose, POC 200(H) 70 - 199 mg/dL [facility] Blood 11/10/2023 11:4 7 AM ELECTRICAL LABORATORY TECHNICIAN 11/10/2023 11:47 AM ELECTRICAL LABORATORY TECHNICIAN Marcial Vu Jr., MD LAB POCT ORDERABLES - DEVICE Final Result Performing Organization Address City/[facility]/[place] [address] * POCT glucose (11/10/2023 8:00 AM ELECTRICAL LABORATORY TECHNICIAN) Glucose, POC 149 70 - 199 mg/dL [facility] Blood 11/10/2023 8:00 AM ELECTRICAL LABORATORY TECHNICIAN 11/10/2023 8:00 AM ELECTRICAL LABORATORY TECHNICIAN Marcial Vu Jr., MD LAB POCT ORDERABLES - DEVICE Final Result Performing Organization Address [facility] [place] [address] * Vancomycin level trough Draw trough 30 minutes prior to 4th dose. (11/10/2023 2:59 AM ELECTRICAL LABORATORY TECHNICIAN) Vancomycin trough 19.0 10.0 - 20.0 mcg/mL [facility] Blood 11/10/2023 2:59 AM ELECTRICAL LABORATORY TECHNICIAN 11/10/2023 3:15 AM ELECTRICAL LABORATORY TECHNICIAN Narrative [facility] - 11/10/2023 3:47 AM ELECTRICAL LABORATORY TECHNICIAN Draw trough 30 minutes prior to 4th dose. Vicki Rehman NP LAB BLOOD ORDERABLES F inal Result Performing Organization Address City/[facility]/ZIP Co de Phone Number [facility] [place] [address] * (ABNORMAL) Basic metabolic panel (11/09/2023 11:30 PM ELECTRICAL LABORATORY TECHNICIAN) Pathologist [facility] Sodium 135 135 - 145 mmol/L [facility] Potassium, pl 4.7 3.3 - 4.9 mmol/L [facility] Chloride 104 97 - 110 mmol/L [facility] CO2 23 22 - 32 mmol/L [facility] Anion gap 8 2 - 15 mmol/L [facility] BUN 20 6 - 25 mg/dL [facility] Creatinine 0.99 0.80 - 1.30 mg/dL [facility] Glucose 138 70 - 199 mg/dL [facility] Comment: Interpretive Data Fasting glucose >/= [...] interpretive data was last revised 2022. Calcium 8.3(L) 8.5 - 10.3 mg/dL [facility] Blood 11/09/2023 11:3 0 PM ELECTRICAL LABORATORY TECHNICIAN 11/09/2023 11:47 PM ELECTRICAL LABORATORY TECHNICIAN Marcial Vu Jr., MD LAB BLOOD ORDERABLE S Final Result [facility] [place] [address] * eGFR (11/09/2023 11:30 PM ELECTRICAL LABORATORY TECHNICIAN) Pathologist [facility] eGFR 81 >=60 mL/min/1. 73 m2 [facility] Comment: Interpretive Data Reference Interval Normal [...] interpretive data was last reviewed 2021. Blood 11/09/2023 11:3 0 PM ELECTRICAL LABORATORY TECHNICIAN 11/09/2023 11:57 PM ELECTRICAL LABORATORY TECHNICIAN Marcial Vu Jr., MD LAB BLOOD ORDERABLE S Final Result Performing Organization Address City/State/[facility] Co de Phone Number [facility] [place] [address] * (ABNORMAL) CBC without differential (11/09/2023 11:30 PM ELECTRICAL LABORATORY TECHNICIAN) WBC 10.9(H) 3.8 - 9.9 K/cumm [facility] Hgb 8.6(L) 13.0 - 17.5 g/dL [facility] Hct 25.3(L) 38.9 - 50.3 % [facility] Plt 225 150 - 400 K/cumm [facility] MPV 11.1 9.1 - 12.3 fL [facility] RBC 2.78(L) 4.30 - 5.80 M/cumm [facility] MCV 91.0 81.3 - 96.4 fL [facility] MCH 30.9 27.1 - 33.3 pg [facility] MCHC 34.0 32.3 - 35.7 g/dL [facility] RDW CV 14.2 11.1 - 14.9 % [facility] RDW SD 48.0 35.7 - 48.1 fL [facility] NRBC abs 0.00 0.00 - 0.01 K/cumm [facility] Blood 11/09/2023 11:3 0 PM ELECTRICAL LABORATORY TECHNICIAN 11/09/2023 11:56 PM ELECTRICAL LABORATORY TECHNICIAN Amanda Copeland MD LAB BLOOD ORDERABLES F inal Result Performing Organization Address City/[facility] Co de Phone Number [facility] [place] [address] * Lidocaine level (11/09/2023 11:30 PM ELECTRICAL LABORATORY TECHNICIAN) Pathologist [facility] Lidocaine (Xylocaine) 2.7 1.5 - 5.0 mcg/mL [facility] Blood 11/09/2023 11:3 0 PM ELECTRICAL LABORATORY TECHNICIAN 11/09/2023 11:47 PM ELECTRICAL LABORATORY TECHNICIAN Narrative [facility] - 11/10/2023 12:30 AM ELECTRICAL LABORATORY TECHNICIAN Draw 24 hours after infusion started. Vicki Rehman NP LAB BLOOD ORDERABLES F inal Result Performing Organization Address [facility] Co de Phone Number [facility] [place] [address] * eGFR (11/09/2023 8:41 PM ELECTRICAL LABORATORY TECHNICIAN) Pathologist [facility] eGFR 81 >=60 mL/min/1. 73 m2 [facility] Comment: Interpretive Data Reference Interval Normal [...] interpretive data was last reviewed 2021. Blood 11/09/2023 8:41 PM ELECTRICAL LABORATORY TECHNICIAN 11/09/2023 9:08 PM ELECTRICAL LABORATORY TECHNICIAN Vicki Rehman NP LAB BLOOD ORDERABLES F inal Result Performing Organization Address City/[facility] Co de Phone Number [facility] [place] [address] * Phosphorus (11/09/2023 8:41 PM ELECTRICAL LABORATORY TECHNICIAN) Phosphorus, pl 3.4 2.3 - 4.5 mg/dL [facility] Blood 11/09/2023 8:41 PM ELECTRICAL LABORATORY TECHNICIAN 11/09/2023 9:08 PM ELECTRICAL LABORATORY TECHNICIAN Vicki Rehman NP LAB BLOOD ORDERABLES F inal Result Performing Organization Address City/[facility] Co de Phone Number [facility] [place] [address] * Magnesium (11/09/2023 8:41 PM ELECTRICAL LABORATORY TECHNICIAN) Magnesium 2.3 1.4 - 2.5 mg/dL [facility] Blood 11/09/2023 8:41 PM ELECTRICAL LABORATORY TECHNICIAN 11/09/2023 9:08 PM ELECTRICAL LABORATORY TECHNICIAN Vicki Rehman NP LAB BLOOD ORDERABLES F inal Result Performing Organization Address [facility] Co de Phone Number [facility] [place] [address] * (ABNORMAL) CBC without differential (11/09/2023 8:41 PM ELECTRICAL LABORATORY TECHNICIAN) [facility] WBC 11.9(H) 3.8 - 9.9 K/cumm [facility] Hgb 8.5(L) 13.0 - 17.5 g/dL [facility] Hct 25.7(L) 38.9 - 50.3 % [facility] Plt 219 150 - 400 K/cumm [facility] MPV 11.1 9.1 - 12.3 fL [facility] RBC 2.82(L) 4.30 - 5.80 M/cumm [facility] MCV 91.1 81.3 - 96.4 fL [facility] MCH 30.1 27.1 - 33.3 pg [facility] MCHC 33.1 32.3 - 35.7 g/dL [facility] RDW CV 14.4 11.1 - 14.9 % [facility] RDW SD 47.6 35.7 - 48.1 fL [facility] NRBC abs 0.00 0.00 - 0.01 K/cumm [facility] Blood 11/09/2023 8:41 PM ELECTRICAL LABORATORY TECHNICIAN 11/09/2023 9:08 PM ELECTRICAL LABORATORY TECHNICIAN Vicki Rehman NP LAB BLOOD ORDERABLES F inal Result Performing Organization Address City/[facility]/ZIP Co de Phone Number [facility] Department [place] [address] * (ABNORMAL) Basic metabolic panel (11/09/2023 8:41 PM ELECTRICAL LABORATORY TECHNICIAN) Sodium 133(L) 135 - 145 mmol/L [facility] Potassium, pl 5.0(H) 3.3 - 4.9 mmol/L [facility] Comment:Hemolyzed; Potassium value may be falsely elevated by as much as 0.3-0.5 mmol/L. Suggest redraw and reanalysis. Chloride 102 97 - 110 mmol/L [facility] CO2 22 22 - 32 mmol/L [facility] Anion gap 9 2 - 15 mmol/L [facility] BUN 20 6 - 25 mg/dL [facility] Creatinine 0.99 0.80 - 1.30 mg/dL [facility] Glucose 189 70 - 199 mg/dL [facility] Comment: Interpretive Data Fasting glucose >/= [...] 2022. Calcium 8.2(L) 8.5 - 10.3 mg/dL [facility] Blood 11/09/2023 8:41 PM ELECTRICAL LABORATORY TECHNICIAN 11/09/2023 9:08 PM ELECTRICAL LABORATORY TECHNICIAN Vicki Rehman NP LAB BLOOD ORDERABLES F inal Result [facility] [place] [address] * POCT glucose (11/09/2023 8:38 PM ELECTRICAL LABORATORY TECHNICIAN) Pathologist [facility] Glucose, POC 196 70 - 199 mg/dL [facility] Blood 11/09/2023 8:38 PM ELECTRICAL LABORATORY TECHNICIAN 11/09/2023 8:38 PM ELECTRICAL LABORATORY TECHNICIAN Marcial Vu Jr., MD LAB POCT ORDERABLES - DEVICE Final Result Performing Organization Address [facility] de Phone Number [facility] [place] [address] * POCT glucose (11/09/2023 4:47 PM ELECTRICAL LABORATORY TECHNICIAN) Glucose, POC 145 70 - 199 mg/dL [facility] Blood 11/09/2023 4:47 PM ELECTRICAL LABORATORY TECHNICIAN 11/09/2023 4:47 PM ELECTRICAL LABORATORY TECHNICIAN Marcial Vu Jr., MD LAB POCT ORDERABLES - DEVICE Final Result Performing Organization Address [facility] de Phone Number [facility] [place] [address] * POCT glucose (11/09/2023 3:18 PM ELECTRICAL LABORATORY TECHNICIAN) Glucose, POC 161 70 - 199 mg/dL [facility] Blood 11/09/2023 3:18 PM ELECTRICAL LABORATORY TECHNICIAN 11/09/2023 3:18 PM ELECTRICAL LABORATORY TECHNICIAN Marcial Vu Jr., MD LAB POCT ORDERABLES - DEVICE Final Result Performing Organization Address [facility] de Phone Number [facility] [place] [address] * CT Chest PE (CTA) W Contrast (11/09/2023 12:22 PM ELECTRICAL LABORATORY TECHNICIAN) Anatomical Region Laterality Modality Body N/A Computed Tomogra phy 11/09/2023 12:4 9 PM ELECTRICAL LABORATORY TECHNICIAN Impressions 11/09/2023 12:49 PM ELECTRICAL LABORATORY TECHNICIAN 1. ??Interval decrease in burden of bilateral pulmonary emboli with a few residual nonocclusive, resolving acute/subacute pulmonary emboli in the right lower lobe segmental arteries and small pulmonary infarcts in the anterior right upper and middle lobes. ??No new pulmonary emboli or CT evidence of right heart strain. 2. ??Persistent left renal subcapsular hematoma. 3. ??Unchanged left rib fractures. 4. ??Interval postsurgical changes in the thoracolumbar spine with subcutaneous gas and drain in place. Electronically signed by: Micha Barajas M.D. Narrative 11/09/2023 12:49 PM ELECTRICAL LABORATORY TECHNICIAN EXAMINATION: CT CHEST PE (CTA) W CONTRAST HISTORY: T5-L5 epidural hematoma evacuation 11/08/2023. ??Recent cardiac arrest status post cardiopulmonary resuscitation. ??Acute pulmonary bilateral emboli on CT dated 10/23/2023 TECHNIQUE: Computed tomographic images were acquired using a chest angiographic protocol optimized for pulmonary embolism. ??Contrast enhanced transaxial images were obtained following the intravenous administration of 63 ml of nonionic contrast. ??Multiplanar reformatted images and three-dimensional images were obtained on the 3-D workstation and sent to the PACS archival system. ?? COMPARISON: 10/23/2023 FINDINGS: Interval decrease in burden of acute/subacute pulmonary emboli in both lungs. ??There are a few scattered residual, predominantly nonocclusive eccentric filling defects in the right lower lobe segmental arteries in the area of previously seen pulmonary emboli on examination dated 10/23/2023, compatible with resolving pulmonary emboli. ??No definite new pulmonary emboli are seen. CT imaging evidence of right heart strain: No The central airways are clear. ??There is a small peripheral groundglass opacity in the anterior right upper lobe which is somewhat triangular shape with central clearing, compatible with a small pulmonary infarct (table position -86.0). ??Similar opacity seen in the anterior right middle lobe at table position -118.0. ??An unchanged 4 mm triangular juxtapleural nodule in the peripheral right upper lobe at table position -32 may represent a lymph node. ??There are trace bilateral pleural effusions with mild adjacent atelectasis. No pneumothorax. Imaged thyroid gland is unremarkable. ??There is mild body wall edema. No axillary, supraclavicular, mediastinal or hilar lymphadenopathy. Fluid is noted within the pericardial recesses. ??No pericardial effusion. ??Upper limits of normal heart size, unchanged. ??Multivessel coronary artery calcification. ??Normal caliber main pulmonary artery and thoracic aorta. ??Aortic atherosclerosis. ??Esophagus is mildly patulous with fluid to the level of the distal trachea. ??There are multiple hepatic cysts and additional hypoattenuating liver lesions too small to characterize, which appear similar to 10/23/2023. Contrast is noted within the renal collecting systems. ??There is a persistent left renal subcapsular hematoma with an unchanged area of hypoattenuation in the interpolar left kidney, which may represent a prior percutaneous nephrostomy catheter site correlated with CT 10/16/2023. ??And inferior vena cava filter is partially imaged, new compared to 10/23/2023. ??There are postsurgical changes of interval long segment thoracolumbar posterior decompression with drain in place. ??Posterior subcutaneous gas extending into the soft tissues is likely postsurgical in etiology. ??Multiple left rib fracture deformities are unchanged. Procedure Note Micha Barajas MD - 11/09/2023 EXAMINATION: CT CHEST PE (CTA) W CONTRAST HISTORY: T5-L5 epidural hematoma evacuation 11/08/2023. Recent cardiac arrest status post cardiopulmonary resuscitation. Acute pulmonary bilateral emboli on CT dated 10/23/2023 TECHNIQUE: Computed tomographic images were acquired using a chest angiographic protocol optimized for pulmonary embolism. Contrast enhanced transaxial images were obtained following the intravenous administration of 63 ml of nonionic contrast. Multiplanar reformatted images and three-dimensional images were obtained on the 3-D workstation and sent to the PACS archival system. COMPARISON: 10/23/2023 FINDINGS: Interval decrease in burden of acute/subacute pulmonary emboli in both lungs. There are a few scattered residual, predominantly nonocclusive eccentric filling defects in the right lower lobe segmental arteries in the area of previously seen pulmonary emboli on examination dated 10/23/2023, compatible with resolving pulmonary emboli. No definite new pulmonary emboli are seen. CT imaging evidence of right heart strain: No The central airways are clear. There is a small peripheral groundglass opacity in the anterior right upper lobe which is somewhat triangular shape with central clearing, compatible with a small pulmonary infarct (table position -86.0). Similar opacity seen in the anterior right middle lobe at table position -118.0. An unchanged 4 mm triangular juxtapleural nodule in the peripheral right upper lobe at table position -32 may represent a lymph node. There are trace bilateral pleural effusions with mild adjacent atelectasis. No pneumothorax. Imaged thyroid gland is unremarkable. There is mild body wall edema. No axillary, supraclavicular, mediastinal or hilar lymphadenopathy. Fluid is noted within the pericardial recesses. No pericardial effusion. Upper limits of normal heart size, unchanged. Multivessel coronary artery calcification. Normal caliber main pulmonary artery and thoracic aorta. Aortic atherosclerosis. Esophagus is mildly patulous with fluid to the level of the distal trachea. There are multiple hepatic cysts and additional hypoattenuating liver lesions too small to characterize, which appear similar to 10/23/2023. Contrast is noted within the renal collecting systems. There is a persistent left renal subcapsular hematoma with an unchanged area of hypoattenuation in the interpolar left kidney, which may represent a prior percutaneous nephrostomy catheter site correlated with CT 10/16/2023. And inferior vena cava filter is partially imaged, new compared to 10/23/2023. There are postsurgical changes of interval long segment thoracolumbar posterior decompression with drain in place. Posterior subcutaneous gas extending into the soft tissues is likely postsurgical in etiology. Multiple left rib fracture deformities are unchanged. IMPRESSION: 1. Interval decrease in burden of bilateral pulmonary emboli with a few residual nonocclusive, resolving acute/subacute pulmonary emboli in the right lower lobe segmental arteries and small pulmonary infarcts in the anterior right upper and middle lobes. No new pulmonary emboli or CT evidence of right heart strain. 2. Persistent left renal subcapsular hematoma. 3. Unchanged left rib fractures. 4. Interval postsurgical changes in the thoracolumbar spine with subcutaneous gas and drain in place. Electronically signed by: Micha Barajas M.D. Vicki Rehman NP IMG CT PROCEDURES Fide l Result * Lidocaine level (11/09/2023 11:43 AM ELECTRICAL LABORATORY TECHNICIAN) Lidocaine (Xylocaine) 3.4 1.5 - 5.0 mcg/mL [facility] Blood 11/09/2023 11:4 3 AM ELECTRICAL LABORATORY TECHNICIAN 11/09/2023 12:04 PM ELECTRICAL LABORATORY TECHNICIAN us Vicki Rehman NP LAB BLOOD ORDERABLES F inal Result Performing Organization Address City/[facility]/ZIP Co de Phone Number [facility] [place] [address] * POCT glucose (11/09/2023 11:04 AM ELECTRICAL LABORATORY TECHNICIAN) [facility] Signature Glucose, POC 147 70 - 199 mg/dL [facility] Blood 11/09/2023 11:0 4 AM ELECTRICAL LABORATORY TECHNICIAN 11/09/2023 11:04 AM ELECTRICAL LABORATORY TECHNICIAN us Marcial Vu Jr., MD LAB POCT ORDERABLES - DEVICE Final Result Performing Organization Address [facility] Co de Phone Number [facility] [place] [address] * Critical Care (11/09/2023 9:22 AM ELECTRICAL LABORATORY TECHNICIAN) Narrative Silver Brown MD - 11/09/2023 9:22 AM ELECTRICAL LABORATORY TECHNICIAN Vicki Rehman NP ? 11/09/2023 ??3:00 PM Critical Care Performed by: Vicki Rehman NP Authorized by: Vicki Rehman NP ?? CRITICAL CARE: ??Team: ??SICU BLUE ??Shift: ??AM ??Level of Billing: ??Subsequent Hospital Visit Level 3 ??My time spent with this patient was 70 minutes: Critical Provider Statement: I have seen and examined the patient on this day of service. I have reviewed and confirmed the history, physical exam, laboratory, and radiographic data as documented in the ICU note. I have reviewed and discussed my treatment plan with the patient's team and other medical/leadership development consultant staff. This time was in addition to and separate from care provided by other practitioners on this day of service. ? I spent time reviewing and interpreting data from bedside monitors, laboratory results, and imaging, I spent time discussing the management of this critically ill patient with consultants and the medical staff and I spent time documenting in the medical record us Vicki Rehman NP IN CLINIC/BEDSIDE [facility] Final Result * IR Insert Vena Cava Filter (11/09/2023 8:47 AM ELECTRICAL LABORATORY TECHNICIAN) Anatomical Region Laterality Modality Body N/A X-Ray Angiograph y 11/09/2023 10:4 9 AM ELECTRICAL LABORATORY TECHNICIAN Impressions 11/09/2023 11:50 AM ELECTRICAL LABORATORY TECHNICIAN Successful placement of an IVC ??filter PLAN: A retrievable filter has been placed. ??If clinically indicated, the filter may be retrieved when the patient is appropriately anticoagulated. ??In order to schedule filter removal please call [phone]. ??This filter can also be left in place as a permanent IVC filter if appropriate. Dictated by: Honorio Hannon M.D. The radiology attending physician has personally reviewed this study, and had reviewed and/or edited this written report and agrees with it. Electronically signed by: Nahun Albarado M.D. Narrative 11/09/2023 11:50 AM ELECTRICAL LABORATORY TECHNICIAN EXAMINATION: ??INFERIOR VENA CAVAGRAM AND INFERIOR VENA CAVA FILTER PLACEMENT HISTORY/INDICATION: ??73-year-old man with history of pulmonary embolism, previously on anticoagulation, now with epidural hematoma. Anticoagulation stopped. ATTENDING PRESENCE: Nahun Albarado M.D., the attending radiologist was present from the beginning to the end of the procedure. ?? SEDATION: Procedural sedation was administered under the attending physician's direction and continuous monitoring by a trained nurse specialist who was independent from those actually performing the procedure. ??Total monitored sedation time was 22 minutes. TECHNIQUE: ??The risks, benefits and alternatives were discussed and informed consent was obtained. Prior to beginning the procedure, [place] Protocol was performed to confirm the patient's identity and the planned procedure. ??The fluoroscopy time has been recorded in the electronic medical record. ??Maximum sterile barriers including cap, mask, hand hygiene, sterile gloves, sterile gown, large sterile drape and 2% chlorhexidine for cutaneous antisepsis were used. Prior to the procedure, the central veins were evaluated by ultrasound. The recorded image shows a patent vessel. The right neck ??was infiltrated with 1% lidocaine. The RIJ ??vein was then accessed using realtime ultrasound guidance and a guidewire passed centrally with fluoroscopic monitoring. A catheter was advanced to the confluence of the IVC and iliac veins. DSA images of the inferior vena cava were obtained. The catheter was then positioned within the infrarenal IVC and exchanged for the filter delivery sheath. A Rex [place]ip filter was deployed in the infrarenal IVC. A completion venogram was obtained. At the end of the procedure, the sheath was removed and pressure held until hemostasis was achieved. ESTIMATED BLOOD LOSS: Minimal. CONDITION: Stable DISCHARGED TO: ??Recovery and then to inpatient floor FINDINGS: DSA of the IVC shows no intraluminal thrombus or obstruction. No anatomic variants are present. The renal veins are well-identified. The final images show the filter positioned in the infra-renal IVC. Procedure Note Nahun Albarado MD - 11/09/2023 EXAMINATION: INFERIOR VENA CAVAGRAM AND INFERIOR VENA CAVA FILTER PLACEMENT HISTORY/INDICATION: 73-year-old man with history of pulmonary embolism, previously on anticoagulation, now with epidural hematoma. Anticoagulation stopped. ATTENDING PRESENCE: Nahun Albarado M.D., the attending radiologist was present from the beginning to the end of the procedure. SEDATION: Procedural sedation was administered under the attending physician's direction and continuous monitoring by a trained nurse specialist who was independent from those actually performing the procedure. Total monitored sedation time was 22 minutes. TECHNIQUE: The risks, benefits and alternatives were discussed and informed consent was obtained. Prior to beginning the procedure, [place] Protocol was performed to confirm the patient's [...] a patent vessel. The right neck was infiltrated with 1% lidocaine. The RIJ vein was then accessed using realtime ultrasound guidance and a guidewire passed centrally with fluoroscopic monitoring. A catheter was advanced to the confluence of the IVC and iliac veins. DSA images of the inferior vena cava were obtained. The catheter was then positioned within the infrarenal IVC and exchanged for the filter delivery sheath. A Rex [place]ip filter was deployed in the infrarenal IVC. A completion venogram was obtained. At the end of the procedure, the sheath was removed and pressure held until hemostasis was achieved. ESTIMATED BLOOD LOSS: Minimal. CONDITION: Stable DISCHARGED TO: Recovery and then to inpatient floor FINDINGS: DSA of the IVC shows no intraluminal thrombus or obstruction. No anatomic variants are present. The renal veins are well-identified. The final images show the filter positioned in the infra-renal IVC. IMPRESSION: Successful placement of an IVC filter PLAN: A retrievable filter has been placed. If clinically indicated, the filter may be retrieved when the patient is appropriately anticoagulated. In order to schedule filter removal please call [phone]. This filter can also be left in place as a permanent IVC filter if appropriate. Dictated by: Honorio Hannon M.D. The radiology attending physician has personally reviewed this study, and had reviewed and/or edited this written report and agrees with it. Electronically signed by: Nahun Albarado M.D. Vicki Rehman WOMEN'S [employer]ARMENT FITTER IMG IR PROCEDURES Fide l Result * POCT glucose (11/09/2023 7:07 AM ELECTRICAL LABORATORY TECHNICIAN) Glucose, POC 137 70 - 199 mg/dL [facility] Blood 11/09/2023 7:07 AM ELECTRICAL LABORATORY TECHNICIAN 11/09/2023 7:07 AM ELECTRICAL LABORATORY TECHNICIAN Marcial Vu Jr., MD LAB POCT ORDERABLES - DEVICE Final Result Performing Organization Address [facility] Co de Phone Number [facility] [place] [address] * POCT glucose (11/09/2023 3:24 AM ELECTRICAL LABORATORY TECHNICIAN) Glucose, POC 160 70 - 199 mg/dL [facility] Blood 11/09/2023 3:24 AM ELECTRICAL LABORATORY TECHNICIAN 11/09/2023 3:24 AM ELECTRICAL LABORATORY TECHNICIAN Marcial Vu Jr., MD LAB POCT ORDERABLES - DEVICE Final Result Performing Organization Address [facility] Co de Phone Number [facility] Department [place] [address] * POCT glucose (11/08/2023 11:49 PM ELECTRICAL LABORATORY TECHNICIAN) Pathologist [facility] Glucose, POC 150 70 - 199 mg/dL [facility] Blood 11/08/2023 11:4 9 PM ELECTRICAL LABORATORY TECHNICIAN 11/08/2023 11:49 PM ELECTRICAL LABORATORY TECHNICIAN Marcial Vu Jr., MD LAB POCT ORDERABLES - DEVICE Final Result [facility] [place] [address] * eGFR (11/08/2023 9:01 PM ELECTRICAL LABORATORY TECHNICIAN) [facility] eGFR >90 >=60 mL/min/1. 73 m2 [facility] Comment: Interpretive Data Reference Interval Normal [...] interpretive data was last reviewed 2021. Blood 11/08/2023 9:01 PM ELECTRICAL LABORATORY TECHNICIAN 11/08/2023 9:18 PM ELECTRICAL LABORATORY TECHNICIAN Vicki Rehman NP LAB BLOOD ORDERABLES F inal Result Performing Organization Address [facility] Co de Phone Number [facility] [place] [address] * Phosphorus (11/08/2023 9:01 PM ELECTRICAL LABORATORY TECHNICIAN) Pathologist [facility] Phosphorus, pl 3.4 2.3 - 4.5 mg/dL [facility] Blood 11/08/2023 9:01 PM ELECTRICAL LABORATORY TECHNICIAN 11/08/2023 9:18 PM ELECTRICAL LABORATORY TECHNICIAN Vicki Rehman NP LAB BLOOD ORDERABLES F inal Result Performing Organization Address [facility] de Phone Number [facility] [place] [address] * Magnesium (11/08/2023 9:01 PM ELECTRICAL LABORATORY TECHNICIAN) [facility] Magnesium 2.3 1.4 - 2.5 mg/dL [facility] Blood 11/08/2023 9:01 PM ELECTRICAL LABORATORY TECHNICIAN 11/08/2023 9:18 PM ELECTRICAL LABORATORY TECHNICIAN Result [facility] Vicki Rehman NP LAB BLOOD ORDERABLES F inal Result Performing Organization Address [facility] de Phone Number [facility] [place] [address] * (ABNORMAL) CBC without differential (11/08/2023 9:01 PM ELECTRICAL LABORATORY TECHNICIAN) [facility] WBC 14.0(H) 3.8 - 9.9 K/cumm [facility] Hgb 11.0(L) 13.0 - 17.5 g/dL [facility] Hct 33.3(L) 38.9 - 50.3 % [facility] Plt 292 150 - 400 K/cumm [facility] MPV 11.1 9.1 - 12.3 fL [facility] RBC 3.62(L) 4.30 - 5.80 M/cumm [facility] MCV 92.0 81.3 - 96.4 fL [facility] MCH 30.4 27.1 - 33.3 pg [facility] MCHC 33.0 32.3 - 35.7 g/dL [facility] RDW CV 14.4 11.1 - 14.9 % [facility] RDW SD 49.0(H) 35.7 - 48.1 fL [facility] NRBC abs 0.00 0.00 - 0.01 K/cumm [facility] Blood 11/08/2023 9:01 PM ELECTRICAL LABORATORY TECHNICIAN 11/08/2023 9:17 PM ELECTRICAL LABORATORY TECHNICIAN Vicki Rehman NP LAB BLOOD ORDERABLES F inal Result [facility] [place] [address] * Basic metabolic panel (11/08/2023 9:01 PM ELECTRICAL LABORATORY TECHNICIAN) Sodium 136 135 - 145 mmol/L [facility] Potassium, pl 4.4 3.3 - 4.9 mmol/L [facility] Chloride 102 97 - 110 mmol/L [facility] CO2 22 22 - 32 mmol/L [facility] Anion gap 12 2 - 15 mmol/L [facility] BUN 18 6 - 25 mg/dL [facility] Creatinine 0.83 0.80 - 1.30 mg/dL [facility] Glucose 192 70 - 199 mg/dL [facility] Comment: Interpretive Data Fasting glucose >/= [...] 2022. Calcium 8.5 8.5 - 10.3 mg/dL [facility] Blood 11/08/2023 9:01 PM ELECTRICAL LABORATORY TECHNICIAN 11/08/2023 9:18 PM ELECTRICAL LABORATORY TECHNICIAN us Vicki Rehman NP LAB BLOOD ORDERABLES F inal Result Performing Organization Address [facility] Hospital/ZIP Co de Phone Number [facility] [place] [address] * POCT glucose (11/08/2023 7:10 PM ELECTRICAL LABORATORY TECHNICIAN) [facility] Signature Glucose, POC 169 70 - 199 mg/dL [facility] Blood 11/08/2023 7:10 PM ELECTRICAL LABORATORY TECHNICIAN 11/08/2023 7:10 PM ELECTRICAL LABORATORY TECHNICIAN us Marcial Vu Jr., MD LAB POCT ORDERABLES - DEVICE Final Result Performing Organization Address [facility] Co de Phone Number [facility] Department [place] [address] * Critical Care (11/08/2023 6:15 PM ELECTRICAL LABORATORY TECHNICIAN) Narrative Dmitry Neal MD - 11/08/2023 6:15 PM ELECTRICAL LABORATORY TECHNICIAN Nuvia Cantu NP ? 11/09/2023 ??5:16 AM Critical Care Performed by: Nuvia Cantu NP Authorized by: Nuvia Cantu NP ?? CRITICAL CARE: ??Team: ??SICU BLUE ??Shift: ??PM ??Level of Billing: ??Critical Care ??My time spent with this patient was 100 minutes: Critical Provider Statement: I have seen and examined the patient on this day of service. I have reviewed and confirmed the history, physical exam, laboratory and radiologic data as documented in the signed ICU note. I have reviewed and discussed my treatment plan with the ICU team and other medical/leadership development consultant staff, making frequent assessments and decisions regarding this patient's complex medical care. Critical Care time was exclusive of time spent performing separately billed procedures, treating other patients, and teaching. This time was in addition to and separate from critical care provided by other practitioners in my group on this day of service. Critical Care was necessary to treat or prevent imminent or life-threatening deterioration of the following conditions: ? I spent time reviewing and interpreting data from bedside monitors, laboratory results, and imaging, I spent time discussing the management of this critically ill patient with consultants and the medical staff and I spent time documenting in the medical record us Nuvia Cantu NP IN CLINIC/BEDSI DE ORDERABLES Final Result * US Vein Duplex Lower Extremity Bilateral Complete (11/08/2023 3:07 PM ELECTRICAL LABORATORY TECHNICIAN) Anatomical Region Laterality Modality Vascular Bilateral Ultrasound 11/08/2023 2:22 PM ELECTRICAL LABORATORY TECHNICIAN Narrative 11/09/2023 1:26 AM ELECTRICAL LABORATORY TECHNICIAN [facility] - Department of Vascular Surgery, Vascular Laboratory [address] [place] [address] Lower Extremity Venous Ultrasound Report Patient Name: HIRA EVANS WILLIAM : 1950 (73y 4m) Study Date: 11/08/2023 2:22:46 PM Gender: M Tech: [place] Location: [id number] Ref Provider: VICKI REHMAN ?Quality: Adequate Order Provider: VICKI REHMAN PROCEDURES: Vascular Report: Venous Duplex imaging was performed bilaterally in the lower extremities. The common femoral, femoral, popliteal, posterior tibial, peroneal veins were evaluated for patency, spontaneity and phasicity with Doppler, compression and augmentation maneuvers. Great saphenous vein proximal at the junction was evaluated with compression maneuvers. INDICATIONS: recent bilateral PE - FINDINGS: Performing Package Wrapper: Nola Walker RVT, CASTILLO. Bilateral: Venous Doppler signals in the bilateral lower extremity are within normal limits for spontaneity and phasicity and respond normally to augmentation maneuvers. No evidence of deep vein thrombus by duplex, proximal to the calf. CONCLUSIONS: 1. There is no evidence of acute deep vein thrombosis in the lower extremities bilaterally. Noninvasive venous studies cannot rule out isolated calf vein obstruction. HISTORY: s/p laminectomy thoracic decompression 11/08/2023. PREVIOUS STUDIES: No previous studies for comparison. [...] Electronically Signed By: Shayan Jameson MD FACS 2023-11-09 01:25:55 ELECTRICAL LABORATORY TECHNICIAN Procedure Note Shayan Jameson MD - 11/09/2023 [facility] - Department of Vascular Surgery,Vascular Laboratory [address] [place] [address] Lower Extremity Venous Ultrasound Report Patient Name: HIRA EVANS WILLIAM : 1950 (73y 4m) Study Date: 11/08/2023 2:22:46 PM Gender: M Tech: [place] Location: [id number] Ref Provider: VICKI REHMAN Quality: Adequate Order Provider: VICKI REHMAN PROCEDURES: Vascular Report: Venous Duplex imaging was performed bilaterally in the lower extremities.The common femoral, femoral, popliteal, posterior tibial, peroneal veins wereevaluated for patency, spontaneity and phasicity with Doppler, compression and augmentationmaneuvers. Great saphenous vein proximal at the junction was evaluated with compressionmaneuvers. INDICATIONS: recent bilateral PE - FINDINGS: Performing Package Wrapper: Nola Walker RVT, CASTILLO. Bilateral: Venous Doppler signals in the bilateral lower extremity are within normallimits for spontaneity and phasicity and respond normally to augmentation maneuvers.No evidence of deep vein thrombus by duplex, proximal to the calf. CONCLUSIONS: 1. There is no evidence of acute deep vein thrombosis in the lowerextremities bilaterally. Noninvasive venous studies cannot rule out isolated calf veinobstruction. HISTORY: s/p laminectomy thoracic decompression 11/08/2023. PREVIOUS STUDIES: No previous studies for comparison. [...] above. Electronically Signed By: Shayan Jameson MD [facility] 2023-11-09 01:25:55 ELECTRICAL LABORATORY TECHNICIAN us Vicki Rehman WOM[employer]S [employer]MENT [employer]TER IMG US PROCEDURES Fide l Result * POCT glucose (11/08/2023 3:05 PM ELECTRICAL LABORATORY TECHNICIAN) Glucose, POC 171 70 - 199 mg/dL [facility] Blood 11/08/2023 3:05 PM ELECTRICAL LABORATORY TECHNICIAN 11/08/2023 3:05 PM ELECTRICAL LABORATORY TECHNICIAN Marcial Vu Jr., MD LAB POCT ORDERABLES - DEVICE Final Result [facility] Department [place] [address] * Critical Care (11/08/2023 12:12 PM ELECTRICAL LABORATORY TECHNICIAN) Narrative Silver Brown MD - 11/08/2023 12:12 PM ELECTRICAL LABORATORY TECHNICIAN Vicki Rehman NP ? 11/08/2023 ??5:33 PM Critical Care Performed by: Vicki Rehman NP Authorized by: Vicki Rehman NP ?? CRITICAL CARE: ??Team: ??SICU BLUE ??Shift: ??AM ??Level of Billing: ??Critical Care ??My time spent with this patient was 120 minutes: Critical Provider Statement: I have seen and examined the patient on this day of service. I have reviewed and confirmed the history, physical exam, laboratory and radiologic data as documented in the signed ICU note. I have reviewed and discussed my treatment plan with the ICU team and other medical/leadership development consultant staff, making frequent assessments and decisions regarding this patient's complex medical care. Critical Care time was exclusive of time spent performing separately billed procedures, treating other patients, and teaching. This time was in addition to and separate from critical care provided by other practitioners in my group on this day of service. Critical Care was necessary to treat or prevent imminent or life-threatening deterioration of the following conditions: ? I spent time reviewing and interpreting data from bedside monitors, laboratory results, and imaging, I spent time discussing the management of this critically ill patient with consultants and the medical staff and I spent time documenting in the medical record us Vicki Rehman NP IN CLINIC/BEDSIDE JOSE PRUITT Final Result * eGFR (11/08/2023 11:51 AM ELECTRICAL LABORATORY TECHNICIAN) [facility] eGFR >90 >=60 mL/min/1. 73 m2 [facility] Comment: Interpretive Data Reference Interval Normal ?>/= [...] interpretive data was last reviewed 2021. Blood 11/08/2023 11:5 1 AM ELECTRICAL LABORATORY TECHNICIAN 11/08/2023 12:03 PM ELECTRICAL LABORATORY TECHNICIAN Vicik Rehman NP LAB BLOOD ORDERABLES F inal Result Performing Organization Address City/[facility]/ZIP Co de Phone Number [facility] Department [place] [address] * (ABNORMAL) CBC without differential (11/08/2023 11:51 AM ELECTRICAL LABORATORY TECHNICIAN) WBC 10.4(H) 3.8 - 9.9 K/cumm [facility] Hgb 9.2(L) 13.0 - 17.5 g/dL [facility] Hct 27.4(L) 38.9 - 50.3 % [facility] Plt 255 150 - 400 K/cumm [facility] MPV 11.0 9.1 - 12.3 fL [facility] RBC 3.03(L) 4.30 - 5.80 M/cumm [facility] MCV 90.4 81.3 - 96.4 fL [facility] MCH 30.4 27.1 - 33.3 pg [facility] MCHC 33.6 32.3 - 35.7 g/dL [facility] RDW CV 14.4 11.1 - 14.9 % [facility] RDW SD 47.6 35.7 - 48.1 fL [facility] NRBC abs 0.00 0.00 - 0.01 K/cumm [facility] Blood 11/08/2023 11:5 1 AM ELECTRICAL LABORATORY TECHNICIAN 11/08/2023 12:18 PM ELECTRICAL LABORATORY TECHNICIAN Vicki Rehman NP LAB BLOOD ORDERABLES F inal Result [facility] [place] [address] * Protime-INR (11/08/2023 11:51 AM ELECTRICAL LABORATORY TECHNICIAN) PT 12.8 10.3 - 13.7 sec [facility] INR 1.12 0.90 - 1.20 [facility] Comment: Interpretive data Oral anticoagulant therapeutic ranges: Venous thromboembolism prophylaxis or treatment: 2.0-3.0 CARDIOLOGY Standard range: 2.0-3.0 High-intensity range: 2.5-3.5 Refer to indication-specific guidelines for appropriate target ranges for prosthetic heart valve replacement. Current interpretive data was last revised on 2019. Blood 11/08/2023 11:5 1 AM ELECTRICAL LABORATORY TECHNICIAN 11/08/2023 12:08 PM ELECTRICAL LABORATORY TECHNICIAN Vicki Rehman NP LAB BLOOD ORDERABLES F inal Result Performing Organization Address [facility] Co de Phone Number [facility] Department [place] [address] * Phosphorus (11/08/2023 11:51 AM ELECTRICAL LABORATORY TECHNICIAN) Pathologist [facility] Phosphorus, pl 4.1 2.3 - 4.5 mg/dL [facility] Blood 11/08/2023 11:5 1 AM ELECTRICAL LABORATORY TECHNICIAN 11/08/2023 12:03 PM ELECTRICAL LABORATORY TECHNICIAN Vicki Rehman NP LAB BLOOD ORDERABLES F inal Result Performing Organization Address City/[facility] Co de Phone Number [facility] Department [place] [address] * Magnesium (11/08/2023 11:51 AM ELECTRICAL LABORATORY TECHNICIAN) Pathologist [facility] Magnesium 1.8 1.4 - 2.5 mg/dL [facility] Blood 11/08/2023 11:5 1 AM ELECTRICAL LABORATORY TECHNICIAN 11/08/2023 12:03 PM ELECTRICAL LABORATORY TECHNICIAN Vicki Rehman NP LAB BLOOD ORDERABLES F inal Result Performing Organization Address City/[facility]/ZIP Co de Phone Number [facility] Department [place] [address] * Calcium, ionized (11/08/2023 11:51 AM ELECTRICAL LABORATORY TECHNICIAN) Pathologist [facility] Calcium, Ionized 4.58 4.50 - 5.10 mg/dL [facility] Blood 11/08/2023 11:5 1 AM ELECTRICAL LABORATORY TECHNICIAN 11/08/2023 12:03 PM ELECTRICAL LABORATORY TECHNICIAN Vicki Rehman NP LAB BLOOD ORDERABLES F inal Result [facility] [place] [address] * (ABNORMAL) Basic metabolic panel (11/08/2023 11:51 AM ELECTRICAL LABORATORY TECHNICIAN) Pathologist [facility] Sodium 138 135 - 145 mmol/L [facility] Potassium, pl 4.4 3.3 - 4.9 mmol/L [facility] Chloride 108 97 - 110 mmol/L [facility] CO2 22 22 - 32 mmol/L [facility] Anion gap 8 2 - 15 mmol/L [facility] BUN 15 6 - 25 mg/dL [facility] Creatinine 0.82 0.80 - 1.30 mg/dL [facility] Glucose 181 70 - 199 mg/dL [facility] Comment: Interpretive Data Fasting glucose >/= [...] interpretive data was last revised 2022. Calcium 8.0(L) 8.5 - 10.3 mg/dL [facility] Blood 11/08/2023 11:5 1 AM ELECTRICAL LABORATORY TECHNICIAN 11/08/2023 12:03 PM ELECTRICAL LABORATORY TECHNICIAN us Vicki Rehman NP LAB BLOOD ORDERABLES F inal Result Performing Organization Address [facility] Co de Phone Number [facility] [place] [address] * POCT glucose (11/08/2023 11:41 AM ELECTRICAL LABORATORY TECHNICIAN) Glucose, POC 173 70 - 199 mg/dL [facility] Blood 11/08/2023 11:4 1 AM ELECTRICAL LABORATORY TECHNICIAN 11/08/2023 11:41 AM ELECTRICAL LABORATORY TECHNICIAN us Marcial Vu MD LAB POCT ORDERABLES - DEVICE Final Result Performing Organization Address [facility] Co de Phone Number [facility] [place] [address] * Transfuse plasma (11/08/2023 9:32 AM ELECTRICAL LABORATORY TECHNICIAN) Blood Hood Kim MD BLOOD TRANSFUSION [facility] Final Result Performing Organization Address [facility] Co de Phone Number [facility] [place] [address] * (ABNORMAL) POC Blood Gas and Chemistries, Arterial - (11/08/2023 8:22 AM ELECTRICAL LABORATORY TECHNICIAN) pH, Art POC 7.38 7.35 - 7.45 [facility] pCO2, Art POC 38 35 - 45 mmHg [facility] pO2, Art POC 153(H) 83 - 108 mmHg [facility] Na, POC 135 135 - 145 mmol/L [facility] K POC 4.5 3.3 - 4.9 mmol/L [facility] Comment: Interpretive Data This method is not able to assess for hemolysis, which may falsely increase potassium concentrations. If further testing is needed to evaluate this result, consider in-laboratory plasma potassium. Current Interpretive Data was last revised on 2022. Cl, POC 109 97 - 110 mmol/L [facility] Ionized Ca, POC 5.14(H) 4.50 - 5.10 mg/dL [facility] Glucose, POC 187 70 - 199 mg/dL [facility] Lactate, POC 0.8 0.7 - 2.2 mmol/L [facility] SO2 (mindy) arterial 99(H) 90 - 95 % [facility] Base excess, POC -2.3 mmol/L [facility] HCO3, Art POC 22 20 - 30 mmol/L [facility] Hct, POC 32.0(L) 41.4 - 51.6 % [facility] O2 Sat, Art POC (Calc) 99 % [facility] Total Hb, POC 10.6(L) 13.8 - 17.2 g/dL [facility] Blood 11/08/2023 8:22 AM ELECTRICAL LABORATORY TECHNICIAN 11/08/2023 8:22 AM ELECTRICAL LABORATORY TECHNICIAN us Julia Ramos MD LAB POCT ORDERABLES - DE VICE Final Result [facility] [place] [address] * Transfuse RBC (11/08/2023 7:37 AM ELECTRICAL LABORATORY TECHNICIAN) Blood us Edmond Barker MD BLOOD TRANSFUSION ORD ERABLES Final Result [facility] [place] [address] * (ABNORMAL) POC Blood Gas and Chemistries, Arterial - (11/08/2023 7:05 AM ELECTRICAL LABORATORY TECHNICIAN) [facility] pH, Art POC 7.42 7.35 - 7.45 [facility] pCO2, Art POC 33(L) 35 - 45 mmHg [facility] pO2, Art POC 156(H) 83 - 108 mmHg [facility] Na, POC 135 135 - 145 mmol/L [facility] K POC 3.8 3.3 - 4.9 mmol/L [facility] Comment: Interpretive Data This method is not able to assess for hemolysis, which may falsely increase potassium concentrations. If further testing is needed to evaluate this result, consider in-laboratory plasma potassium. Current Interpretive Data was last revised on 2022. Cl, POC 109 97 - 110 mmol/L [facility] Ionized Ca, POC 4.66 4.50 - 5.10 mg/dL [facility] Glucose, POC 146 70 - 199 mg/dL [facility] Lactate, POC 0.6(L) 0.7 - 2.2 mmol/L [facility] SO2 (mindy) arterial 99(H) 90 - 95 % [facility] Base excess, POC -2.6 mmol/L [facility] HCO3, Art POC 21 20 - 30 mmol/L [facility] Hct, POC 29.0(L) 41.4 - 51.6 % [facility] O2 Sat, Art POC (Calc) 99 % [facility] Total Hb, POC 9.8(L) 13.8 - 17.2 g/dL [facility] Blood 11/08/2023 7:05 AM ELECTRICAL LABORATORY TECHNICIAN 11/08/2023 7:05 AM ELECTRICAL LABORATORY TECHNICIAN Julia Ramos MD LAB POCT ORDERABLES - DE VICE Final Result [facility] Department [place] [address] * (ABNORMAL) POC Blood Gas and Chemistries, Arterial - (11/08/2023 6:00 AM ELECTRICAL LABORATORY TECHNICIAN) pH, Art POC 7.39 7.35 - 7.45 [facility] pCO2, Art POC 40 35 - 45 mmHg [facility] pO2, Art POC 158(H) 83 - 108 mmHg [facility] Na, POC 136 135 - 145 mmol/L [facility] K POC 3.7 3.3 - 4.9 mmol/L [facility] Comment: Interpretive Data This method is not able to assess for hemolysis, which may falsely increase potassium concentrations. If further testing is needed to evaluate this result, consider in-laboratory plasma potassium. Current Interpretive Data was last revised on 2022. Cl, POC 109 97 - 110 mmol/L [facility] Ionized Ca, POC 4.53 4.50 - 5.10 mg/dL [facility] Glucose, POC 131 70 - 199 mg/dL [facility] Lactate, POC 0.7 0.7 - 2.2 mmol/L [facility] SO2 (mindy) arterial 100(H) 90 - 95 % [facility] Base excess, POC -0.7 mmol/L [facility] HCO3, Art POC 24 20 - 30 mmol/L [facility] Hct, POC 29.0(L) 41.4 - 51.6 % [facility] O2 Sat, Art POC (Calc) 99 % [facility] Total Hb, POC 9.6(L) 13.8 - 17.2 g/dL [facility] Blood 11/08/2023 6:00 AM ELECTRICAL LABORATORY TECHNICIAN 11/08/2023 6:00 AM ELECTRICAL LABORATORY TECHNICIAN us Julia Ramos MD LAB POCT ORDERABLES - DE VICE Final Result [facility] [place] [address] * Transfuse RBC (11/08/2023 5:59 AM ELECTRICAL LABORATORY TECHNICIAN) Blood us Edmond Barker MD BLOOD TRANSFUSION ORD ERABLES Final Result [facility] [place] [address] * Transfuse RBC (11/08/2023 4:53 AM ELECTRICAL LABORATORY TECHNICIAN) Blood us Edmond Barker MD BLOOD TRANSFUSION ORD ERABLES Final Result [facility] [place] [address] * (ABNORMAL) POC Blood Gas and Chemistries, Arterial - (11/08/2023 4:18 AM ELECTRICAL LABORATORY TECHNICIAN) pH, Art POC 7.45 7.35 - 7.45 [facility] pCO2, Art POC 35 35 - 45 mmHg [facility] pO2, Art POC 322(H) 83 - 108 mmHg [facility] Na, POC 136 135 - 145 mmol/L [facility] K POC 3.5 3.3 - 4.9 mmol/L [facility] Comment: Interpretive Data This method is not able to assess for hemolysis, which may falsely increase potassium concentrations. If further testing is needed to evaluate this result, consider in-laboratory plasma potassium. Current Interpretive Data was last revised on 2022. Cl, POC 108 97 - 110 mmol/L [facility] Ionized Ca, POC 4.62 4.50 - 5.10 mg/dL [facility] Glucose, POC 123 70 - 199 mg/dL [facility] Lactate, POC 0.7 0.7 - 2.2 mmol/L [facility] SO2 (mindy) arterial 99(H) 90 - 95 % [facility] Base excess, POC 0.4 mmol/L [facility] HCO3, Art POC 24 20 - 30 mmol/L [facility] Hct, POC 26.0(L) 41.4 - 51.6 % [facility] O2 Sat, Art POC (Calc) 100 % [facility] Total Hb, POC 8.6(L) 13.8 - 17.2 g/dL [facility] Blood 11/08/2023 4:18 AM ELECTRICAL LABORATORY TECHNICIAN 11/08/2023 4:18 AM ELECTRICAL LABORATORY TECHNICIAN us Julia Ramos MD LAB POCT ORDERABLES - DE VICE Final Result [facility] Department [place] [address] * Prepare plasma: 4 Units (11/08/2023 2:28 AM ELECTRICAL LABORATORY TECHNICIAN) [facility] Product code [id number] Unit Number [id number] N [facility] Product Blood Type OPOS [facility] Dispense Status RETURNED [facility] Product code D4254X32 [facility] Unit Number [id number] C [facility] Product Blood Type OPOS [facility] Dispense Status RETURNED [facility] Product code X5342T58 [facility] Unit Number [id number] O [facility] Product Blood Type OPOS [facility] Dispense Status RETURNED [facility] Product code [id number] [facility] Unit Number [id number] U [facility] Product Blood Type OPOS [facility] Dispense Status PRESUMED TRANSFUSED [facility] Blood (Blood, Venous) 11/08/2023 2:28 AM ELECTRICAL LABORATORY TECHNICIAN 11/08/2023 2:29 AM ELECTRICAL LABORATORY TECHNICIAN Narrative [facility] - 11/09/2023 12:41 PM ELECTRICAL LABORATORY TECHNICIAN Date required: FFP # of Units:-4-Units Reasons:-Immediate need for surgical intervention us Tobias Rivas MD BLOOD BANK PRODUCT ORDERA BLES Final Result [facility] [place] [address] * Prepare RBC: 4 Units (11/08/2023 2:28 AM ELECTRICAL LABORATORY TECHNICIAN) Product code [id number] Unit Number [id number] P [facility] Product Blood Type OPOS [facility] Dispense Status PRESUMED TRANSFUSED [facility] Product code V5600P64 [facility] Unit Number [id number] [facility] Product Blood Type OPOS [facility] Dispense Status RETURNED [facility] Product code A2270E44 [facility] Unit Number [id number] [facility] Product Blood Type OPOS [facility] Dispense Status PRESUMED TRANSFUSED [facility] Product code [id number] [facility] Unit Number [id number]- A [facility] Product Blood Type OPOS [facility] Dispense Status PRESUMED TRANSFUSED [facility] Blood 11/08/2023 2:28 AM ELECTRICAL LABORATORY TECHNICIAN 11/08/2023 2:29 AM ELECTRICAL LABORATORY TECHNICIAN Narrative [facility] - 11/09/2023 12:43 PM ELECTRICAL LABORATORY TECHNICIAN Are special requirements needed? (All products are leukoreduced and CMV- safe)- >No Date required:-[id number] LRRBC # of [id number] Reasons:-Intra-op transfusion} us Tobias Rivas MD BLOOD BANK PRODUCT ORDERA BLES Final Result [facility] Department [place] [address] * Critical Care (11/08/2023 2:18 AM ELECTRICAL LABORATORY TECHNICIAN) Narrative Eula Wagoner MD - 11/08/2023 2:18 AM ELECTRICAL LABORATORY TECHNICIAN Eula Wagoner MD ? 11/08/2023 ??2:19 AM Critical Care Performed by: Eula Wagoner MD Authorized by: Eula Wagoner MD ?? Critical care provider statement: As reflected in the history, physical exam, orders, notes, and/or MDM, I was personally present while the patient was critically ill and provided critical care services for 20 minutes, excluding time involved in separately billable procedures. ??Critical care was necessary to treat or prevent imminent or life-threatening deterioration of the following condition(s): ?? spinal cord injury/spine fracture ??Critical care was time spent by me providing the following: ? continuous telemetry, continuous pulse oximetry and serial bedside patient exams ?? advanced imaging MRI ?? MRI imaging, coordination with Ortho spine, emergent OR for spinal hematoma ?? I provided emergent necessary critical care medicine services to this patient. I ordered and reviewed test results and/or imaging studies. I spent time discussing the management of this critically ill patient with consultants and the medical staff. I spent time discussing the management and therapeutic options for this critically ill patient with the patient themselves or with the appropriate designated surrogate decision-maker. I spent time documenting in the medical record. us Eula Wagoner MD IN CLINIC/BEDSIDE ORDERAB LES Final Result * CT Cervical Thoracic Lumbar Spine WO Contrast (11/08/2023 2:09 AM ELECTRICAL LABORATORY TECHNICIAN) Anatomical Region Laterality Modality Spine N/A Computed Tomogra phy 11/08/2023 2:35 AM ELECTRICAL LABORATORY TECHNICIAN Impressions 11/08/2023 1:21 PM ELECTRICAL LABORATORY TECHNICIAN 1. ??Degenerative changes of the cervical and thoracic spine with no acute traumatic injuries identified. 2. ??Postsurgical changes of L4-L5 discectomy, interbody and posterior fusion with bone grafting. Gas in the soft tissues and spinal canal with adjacent confluent area of soft tissue attenuation can be seen in the setting of epidural abscess. ??Differential diagnosis would also include epidural hematoma. ??Recommend correlation with same day same-day MR report. Dictated by: Hernán Cárdenas M.D. The radiology attending physician has personally reviewed this study, and had reviewed and/or edited this written report and agrees with it. Electronically signed by: Zac Mcgarry M.D. Narrative 11/08/2023 1:21 PM ELECTRICAL LABORATORY TECHNICIAN EXAMINATION: 1. CT of the cervical spine without contrast 2. CT of the thoracic spine without contrast 3. CT of the lumbar spine without contrast HISTORY: 73-year-old undergoing with bilateral lower extremity numbness and tingling. TECHNIQUE: CT of the cervical spine was performed according to the standard protocol without intravenous contrast. CT of the thoracic spine was performed according to standard protocol without intravenous contrast. CT of the lumbar spine was performed according to the standard protocol without intravenous contrast. COMPARISON: Comparison CT from 10/11/2023. FINDINGS: CERVICAL SPINE: The alignment of the cervical spine is normal. There is no acute fracture. Vertebral bodies are normal in height without compression fractures. The craniocervical junction is normal. Limited views of the skull base appear normal. The sphenoid sinus is well aerated. No soft tissue abnormality is identified. Mild degenerative changes of the cervical spine worst at C5-C6 and C6-C7. There is multilevel moderate facet arthropathy. There is multilevel mild to moderate uncovertebral joint disease. There is mild multilevel neuroforaminal stenosis. There is no spinal canal stenosis. THORACIC SPINE: There are 12 rib-bearing thoracic vertebra. The alignment of the thoracic spine is normal. There is no acute fracture. Vertebral bodies are normal in height without compression fractures. Intervertebral disk heights are normal. There is no soft tissue abnormality. The thoracic aorta is normal. ??Diffuse skeletal hyperostosis is seen. ??Vertebral body hemangiomas are present. The disks are normal in configuration. There is no facet hypertrophy. There is no neuroforaminal stenosis. There is no spinal canal stenosis. LUMBAR SPINE: Postsurgical changes of L4-L5 discectomy, posterior decompression and posterior spinal fixation seen. ??Within the laminectomy bed and extending into the paraspinal musculature a rounded area of hyperattenuation is present. ??This extends proximally to the level of L2. ??Bone graft material is also present from L4 to L5. Instrumentation is intact. ??Small amount of gas in the soft tissues seen. ??Small foci of gas are also present within the spinal canal. These foci of gas appear to be within the thecal sac and are best seen from L1 through L3. ??Subtle hyperattenuation is seen within the thecal sac extending from L4-L5 through the mid thoracic spine. ??The alignment of the lumbar spine is normal. There is no acute fracture. The vertebral bodies are normal in height without compression fractures. The intervertebral disk heights are normal. Left-sided double-J ureteric stent is seen. The abdominal aorta appears normal. Degenerative changes of the nonfused lumbar spine levels most at L3-L4. ??There is mild bilateral facet arthropathy. There is mild neuroforaminal stenosis. There is no spinal canal stenosis. Procedure Note Zac Mcgarry MD - 11/08/2023 EXAMINATION: 1. CT of the cervical spine without contrast 2. CT of the thoracic spine without contrast 3. CT of the lumbar spine without contrast HISTORY: 73-year-old undergoing with bilateral lower extremity numbness and tingling. TECHNIQUE: CT of the cervical spine was performed according to the standard protocol without intravenous contrast. CT of the thoracic spine was performed according to standard protocol without intravenous contrast. CT of the lumbar spine was performed according to the standard protocol without intravenous contrast. COMPARISON: Comparison CT from 10/11/2023. FINDINGS: CERVICAL SPINE: The alignment of the cervical spine is normal. There is no acute fracture. Vertebral bodies are normal in height without compression fractures. The craniocervical junction is normal. Limited views of the skull base appear normal. The sphenoid sinus is well aerated. No soft tissue abnormality is identified. Mild degenerative changes of the cervical spine worst at C5-C6 and C6-C7. There is multilevel moderate facet arthropathy. There is multilevel mild to moderate uncovertebral joint disease. There is mild multilevel neuroforaminal stenosis. There is no spinal canal stenosis. THORACIC SPINE: There are 12 rib-bearing thoracic vertebra. The alignment of the thoracic spine is normal. There is no acute fracture. Vertebral bodies are normal in height without compression fractures. Intervertebral disk heights are normal. There is no soft tissue abnormality. The thoracic aorta is normal. Diffuse skeletal hyperostosis is seen. Vertebral body hemangiomas are present. The disks are normal in configuration. There is no facet hypertrophy. There is no neuroforaminal stenosis. There is no spinal canal stenosis. LUMBAR SPINE: Postsurgical changes of L4-L5 discectomy, posterior decompression and posterior spinal fixation seen. Within the laminectomy bed and extending into the paraspinal musculature a rounded area of hyperattenuation is present. This extends proximally to the level of L2. Bone graft material is also present from L4 to L5. Instrumentation is intact. Small amount of gas in the soft tissues seen. Small foci of gas are also present within the spinal canal. These foci of gas appear to be within the thecal sac and are best seen from L1 through L3. Subtle hyperattenuation is seen within the thecal sac extending from L4-L5 through the mid thoracic spine. The alignment of the lumbar spine is normal. There is no acute fracture. The vertebral bodies are normal in height without compression fractures. The intervertebral disk heights are normal. Left-sided double-J ureteric stent is seen. The abdominal aorta appears normal. Degenerative changes of the nonfused lumbar spine levels most at L3-L4. There is mild bilateral facet arthropathy. There is mild neuroforaminal stenosis. There is no spinal canal stenosis. IMPRESSION: 1. Degenerative changes of the cervical and thoracic spine with no acute traumatic injuries identified. 2. Postsurgical changes of L4-L5 discectomy, interbody and posterior fusion with bone grafting. Gas in the soft tissues and spinal canal with adjacent confluent area of soft tissue attenuation can be seen in the setting of epidural abscess. Differential diagnosis would also include epidural hematoma. Recommend correlation with same day same-day MR report. Dictated by: Hernán Cárdenas M.D. The radiology attending physician has personally reviewed this study, and had reviewed and/or edited this written report and agrees with it. Electronically signed by: Zac Mcgarry M.D. us Lex Carrillo III, MD IMG CT PROCEDUR ES Final Result * XR Spine Lumbar 2 or 3 Views (11/08/2023 1:14 AM ELECTRICAL LABORATORY TECHNICIAN) Anatomical Region Laterality Modality Spine N/A Computed Radiogr aphy 11/08/2023 1:56 AM ELECTRICAL LABORATORY TECHNICIAN Impressions 11/08/2023 10:20 AM ELECTRICAL LABORATORY TECHNICIAN FINDINGS/IMPRESSION: Thoracic spine: 3 views of the thoracic spine are obtained for interpretation. ??Evaluation of the upper thoracic spine is limited due to overlying soft tissues. ??Vertebral body heights are maintained. ??Diffuse idiopathic skeletal hyperostosis. Partially imaged left ureteral stent catheter. Lumbar spine: 3 views of the lumbar spine are obtained for interpretation. ??Posterior spinal instrumentation and fixation of L4-L5 with interbody fusion. ??Degenerative disc disease of the spine. The vertebral body heights are maintained. ??Partially imaged left ureteral stent. Dictated by: Geovanna Cárdenas MD, MPH The radiology attending physician has personally reviewed this study, and had reviewed and/or edited this written report and agrees with it. Electronically signed by: Kendrick House M.D. Narrative 11/08/2023 10:20 AM ELECTRICAL LABORATORY TECHNICIAN EXAMINATION: ??XR SPINE THORACIC 3 VIEWS, XR SPINE LUMBAR 2 OR 3 VIEWS HISTORY: Preoperative Procedure Note Kendrick House MD - 11/08/2023 EXAMINATION: XR SPINE THORACIC 3 VIEWS, XR SPINE LUMBAR 2 OR 3 VIEWS HISTORY: Preoperative IMPRESSION: FINDINGS/IMPRESSION: Thoracic spine: 3 views of the thoracic spine are obtained for interpretation. Evaluation of the upper thoracic spine is limited due to overlying soft tissues. Vertebral body heights are maintained. Diffuse idiopathic skeletal hyperostosis. Partially imaged left ureteral stent catheter. Lumbar spine: 3 views of the lumbar spine are obtained for interpretation. Posterior spinal instrumentation and fixation of L4-L5 with interbody fusion. Degenerative disc disease of the spine. The vertebral body heights are maintained. Partially imaged left ureteral stent. Dictated by: Geovanna Cárdenas MD, MPH The radiology attending physician has personally reviewed this study, and had reviewed and/or edited this written report and agrees with it. Electronically signed by: Kendrick House M.D. Eula Wagoner MD IMG XR PROCEDURES Final R esult * XR Spine Thoracic 3 Vw (11/08/2023 1:13 AM ELECTRICAL LABORATORY TECHNICIAN) Anatomical Region Laterality Modality Spine N/A Computed Radiogr aphy 11/08/2023 1:56 AM ELECTRICAL LABORATORY TECHNICIAN Impressions 11/08/2023 10:20 AM ELECTRICAL LABORATORY TECHNICIAN FINDINGS/IMPRESSION: Thoracic spine: 3 views of the thoracic spine are obtained for interpretation. ??Evaluation of the upper thoracic spine is limited due to overlying soft tissues. ??Vertebral body heights are maintained. ??Diffuse idiopathic skeletal hyperostosis. Partially imaged left ureteral stent catheter. Lumbar spine: 3 views of the lumbar spine are obtained for interpretation. ??Posterior spinal instrumentation and fixation of L4-L5 with interbody fusion. ??Degenerative disc disease of the spine. The vertebral body heights are maintained. ??Partially imaged left ureteral stent. Dictated by: Geovanna Cárdenas MD, MPH The radiology attending physician has personally reviewed this study, and had reviewed and/or edited this written report and agrees with it. Electronically signed by: Kendrick oHuse M.D. Narrative 11/08/2023 10:20 AM ELECTRICAL LABORATORY TECHNICIAN EXAMINATION: ??XR SPINE THORACIC 3 VIEWS, XR SPINE LUMBAR 2 OR 3 VIEWS HISTORY: Preoperative Procedure Note Kendrick House MD - 11/08/2023 EXAMINATION: XR SPINE THORACIC 3 VIEWS, XR SPINE LUMBAR 2 OR 3 VIEWS HISTORY: Preoperative IMPRESSION: FINDINGS/IMPRESSION: Thoracic spine: 3 views of the thoracic spine are obtained for interpretation. Evaluation of the upper thoracic spine is limited due to overlying soft tissues. Vertebral body heights are maintained. Diffuse idiopathic skeletal hyperostosis. Partially imaged left ureteral stent catheter. Lumbar spine: 3 views of the lumbar spine are obtained for interpretation. Posterior spinal instrumentation and fixation of L4-L5 with interbody fusion. Degenerative disc disease of the spine. The vertebral body heights are maintained. Partially imaged left ureteral stent. Dictated by: Geovanna Cárdenas MD, MPH The radiology attending physician has personally reviewed this study, and had reviewed and/or edited this written report and agrees with it. Electronically signed by: Kendrick House M.D. Eula Wagoner MD IMG XR PROCEDURES Final R esult * MRI Spine Total Complete WO Contrast (11/08/2023 12:44 AM ELECTRICAL LABORATORY TECHNICIAN) Anatomical Region Laterality Modality Spine N/A Magnetic Resonan ce 11/08/2023 11:5 3 AM ELECTRICAL LABORATORY TECHNICIAN Impressions 11/08/2023 4:26 PM ELECTRICAL LABORATORY TECHNICIAN 1. ??Postsurgical changes of L4-L5 discectomy, interbody and posterior fusion. 2. ??Longitudinally extending dorsal epidural and subdural collection from T5-T6 through L5-S1. This is favored to represent hematoma and less likely an abscess. 3. ??Otherwise, degenerative spine disease as described above. The critical results were discussed with Dr. Dr. Arti MD at 11/07/2023 1:[address] Hastings. Dictated by: Satinder Hastings MD The radiology attending physician has personally reviewed this study, and had reviewed and/or edited this written report and agrees with it. Electronically signed by: Zac Mcgarry M.D. Narrative 11/08/2023 4:26 PM ELECTRICAL LABORATORY TECHNICIAN EXAMINATION: 1. Magnetic resonance imaging (MRI) of the cervical spine without contrast 2. Magnetic resonance imaging (MRI) of the thoracic spine without contrast 3. Magnetic resonance imaging (MRI) of the lumbar spine without contrast HISTORY: 73-year-old man with recent postop from L4-L5 posterior spinal instrumentation and decompression, presenting with bilateral lower limb weakness. TECHNIQUE: Multiplanar multi-weighted MRI of the cervical spine was performed without intravenous contrast using the standard protocol. Multiplanar multi-weighted MRI of the thoracic spine was performed without intravenous contrast using the standard protocol. Multiplanar multi-weighted MRI of the lumbar spine was performed without intravenous contrast using the standard protocol. COMPARISON: Cervical spine 11/08/2023. ??MRI total spine 10/12/2023. FINDINGS: CERVICAL SPINE: The alignment of the cervical spine is straightened. ??There is mild anterolisthesis of C6 upon C7. ??Vertebral bodies demonstrate normal signal intensity on all sequences. No acute fracture is identified. The craniocervical junction is normal. The visualized portions of the skull base and the posterior fossa are unremarkable. The spinal cord demonstrates normal signal intensity on all sequences. Intervertebral disks have reduced disc height with disc desiccation. No soft tissue abnormality is identified. Normal signal voids are present in the vertebral arteries. Multilevel degenerative disc disease is noted with disc osteophyte complexes, facet and uncovertebral joint hypertrophy. ??Prominent ligamentum flavum infolding at C5-C6 and C6-C7. ??There is severe neural foraminal stenosis at C3-C4 on right side, C4-C5 on left side, C5-C6 bilaterally. ??There is mild spinal canal stenosis at C5-C6. THORACOLUMBAR SPINE: There are postsurgical changes from L4-L5 discectomy, posterior decompression and posterior instrumented spinal fixation. ??There is longitudinally extending dorsal subdural collection from L5-S1 through T5-T6. ??The maximum anterior-posterior dimension of this collection measures 12.5 mm at L4 level. ??This is causing severe spinal canal stenosis at these levels. ?There is a thin epidural collection extending from C5-C6 through T8-T9. There is T1/T2/FLAIR hyperintensity in the posterior paraspinal soft tissues (in the region of multifidus and erector spinae muscles) extending from L2 to S1 vertebral body levels that likely represents evolving hemorrhage from recent surgery. There is dextroscoliosis of the upper thoracic spine centered around T4-T5. There are hemangiomas within the T4 and T12 vertebral bodies. There is heterogeneous signal intensity of the bone marrow. There are no compression fractures. The spinal cord demonstrates normal signal intensity on all sequences. The conus medullaris terminates at the level of L1. ??Intervertebral disks have reduced disc height with disc desiccation at multiple levels. Limited views of the chest and abdomen show no soft tissue abnormality. The aorta is normal. Small disc protrusions at T3-T4, and from T7-T8 through T9-T10. There is mild multilevel facet arthropathy in the thoracic region. There is no high-grade neuroforaminal stenosis in the thoracic region. L4-L5: Discectomy and fusion. There is moderate facet arthropathy with severe left and moderate right ligamentum flavum infolding. There is moderately severe left neuroforaminal stenosis. L5-S1: Diffuse disc bulge. There is moderate bilateral facet arthropathy. There is moderate to severe bilateral neuroforaminal stenosis. Procedure Note Zac Mcgarry MD - 11/08/2023 EXAMINATION: 1. Magnetic resonance imaging (MRI) of the cervical spine without contrast 2. Magnetic resonance imaging (MRI) of the thoracic spine without contrast 3. Magnetic resonance imaging (MRI) of the lumbar spine without contrast HISTORY: 73-year-old man with recent postop from L4-L5 posterior spinal instrumentation and decompression, presenting with bilateral lower limb weakness. TECHNIQUE: Multiplanar multi-weighted MRI of the cervical spine was performed without intravenous contrast using the standard protocol. Multiplanar multi-weighted MRI of the thoracic spine was performed without intravenous contrast using the standard protocol. Multiplanar multi-weighted MRI of the lumbar spine was performed without intravenous contrast using the standard protocol. COMPARISON: Cervical spine 11/08/2023. MRI total spine 10/12/2023. FINDINGS: CERVICAL SPINE: The alignment of the cervical spine is straightened. There is mild anterolisthesis of C6 upon C7. Vertebral bodies demonstrate normal signal intensity on all sequences. No acute fracture is identified. The craniocervical junction is normal. The visualized portions of the skull base and the posterior fossa are unremarkable. The spinal cord demonstrates normal signal intensity on all sequences. Intervertebral disks have reduced disc height with disc desiccation. No soft tissue abnormality is identified. Normal signal voids are present in the vertebral arteries. Multilevel degenerative disc disease is noted with disc osteophyte complexes, facet and uncovertebral joint hypertrophy. Prominent ligamentum flavum infolding at C5-C6 and C6-C7. There is severe neural foraminal stenosis at C3-C4 on right side, C4-C5 on left side, C5-C6 bilaterally. There is mild spinal canal stenosis at C5-C6. THORACOLUMBAR SPINE: There are postsurgical changes from L4-L5 discectomy, posterior decompression and posterior instrumented spinal fixation. There is longitudinally extending dorsal subdural collection from L5-S1 through T5-T6. The maximum anterior-posterior dimension of this collection measures 12.5 mm at L4 level. This is causing severe spinal canal stenosis at these levels. There is a thin epidural collection extending from C5-C6 through T8-T9. There is T1/T2/FLAIR hyperintensity in the posterior paraspinal soft tissues (in the region of multifidus and erector spinae muscles) extending from L2 to S1 vertebral body levels that likely represents evolving hemorrhage from recent surgery. There is dextroscoliosis of the upper thoracic spine centered around T4-T5. There are hemangiomas within the T4 and T12 vertebral bodies. There is heterogeneous signal intensity of the bone marrow. There are no compression fractures. The spinal cord demonstrates normal signal intensity on all sequences. The conus medullaris terminates at the level of L1. Intervertebral disks have reduced disc height with disc desiccation at multiple levels. Limited views of the chest and abdomen show no soft tissue abnormality. The aorta is normal. Small disc protrusions at T3-T4, and from T7-T8 through T9-T10. There is mild multilevel facet arthropathy in the thoracic region. There is no high-grade neuroforaminal stenosis in the thoracic region. L4-L5: Discectomy and fusion. There is moderate facet arthropathy with severe left and moderate right ligamentum flavum infolding. There is moderately severe left neuroforaminal stenosis. L5-S1: Diffuse disc bulge. There is moderate bilateral facet arthropathy. There is moderate to severe bilateral neuroforaminal stenosis. IMPRESSION: 1. Postsurgical changes of L4-L5 discectomy, interbody and posterior fusion. 2. Longitudinally extending dorsal epidural and subdural collection from T5-T6 through L5-S1. This is favored to represent hematoma and less likely an abscess. 3. Otherwise, degenerative spine disease as described above. The critical results were discussed with Dr. Dr. Arti MD at 11/07/2023 1:[address] Hastings. Dictated by: Satinder Hastings MD The radiology attending physician has personally reviewed this study, and had reviewed and/or edited this written report and agrees with it. Electronically signed by: Zac Mcgarry M.D. Deisy Ayala MD [facility] PROCEDURES Final Result * eGFR (11/07/2023 11:01 PM ELECTRICAL LABORATORY TECHNICIAN) [facility] eGFR 82 >=60 mL/min/1. 73 m2 [facility] Comment: Interpretive Data Reference Interval Normal ?>/= [...] interpretive data was last reviewed 2021. Blood 11/07/2023 11:0 1 PM ELECTRICAL LABORATORY TECHNICIAN 11/07/2023 11:12 PM ELECTRICAL LABORATORY TECHNICIAN us Deisy Ayala MD LAB BLOOD ORDERABLES Fide prabhjot Result [facility] Department [place] [address] * Type and screen (11/07/2023 11:01 PM ELECTRICAL LABORATORY TECHNICIAN) Jigna, indirect Negative ABO Rh O Positive [facility] Blood 11/07/2023 11:0 1 PM ELECTRICAL LABORATORY TECHNICIAN 11/07/2023 11:46 PM ELECTRICAL LABORATORY TECHNICIAN Narrative [facility]AGO[facility] - 11/08/2023 12:42 AM ELECTRICAL LABORATORY TECHNICIAN Has the patient had Daratumumab or Isatuximab in the past 6 months?->Unknown us Deisy Ayala MD LAB BLOOD BANK TEST ORDER CLEMENTINE Final Result Performing Organization Address [facility] Co de Phone Number [facility] [place] [address] * aPTT (11/07/2023 11:01 PM ELECTRICAL LABORATORY TECHNICIAN) aPTT 32 28 - 38 sec [facility] Comment: Interpretive Data Heparin therapeutic range: 66.0 - 100.0 seconds. Range based on correlation with therapeutic heparin activity range of 0.3 - 0.7 Units/mL. Current interpretive data was last revised on 2023. Blood 11/07/2023 11:0 1 PM ELECTRICAL LABORATORY TECHNICIAN 11/08/2023 12:07 AM ELECTRICAL LABORATORY TECHNICIAN us Deisy Ayala MD LAB BLOOD ORDERABLES Fide l Result Performing Organization Address [facility] [place] [address] * Protime-INR (11/07/2023 11:01 PM ELECTRICAL LABORATORY TECHNICIAN) PT 12.6 10.3 - 13.7 sec [facility] INR 1.11 0.90 - 1.20 [facility] Comment: Interpretive data Oral anticoagulant therapeutic ranges: Venous thromboembolism prophylaxis or treatment: 2.0-3.0 CARDIOLOGY Standard range: 2.0-3.0 High-intensity range: 2.5-3.5 Refer to indication-specific guidelines for appropriate target ranges for prosthetic heart valve replacement. Current interpretive data was last revised on 2019. Blood 11/07/2023 11:0 1 PM ELECTRICAL LABORATORY TECHNICIAN 11/08/2023 12:07 AM ELECTRICAL LABORATORY TECHNICIAN Deisy Ayala MD LAB BLOOD ORDERABLES Fide l Result Performing Organization Address [facility] Co de Phone Number [facility] [place] [address] * Basic metabolic panel (11/07/2023 11:01 PM ELECTRICAL LABORATORY TECHNICIAN) Pathologist [facility] Sodium 141 135 - 145 mmol/L [facility] Potassium, pl 4.2 3.3 - 4.9 mmol/L [facility] Chloride 104 97 - 110 mmol/L [facility] CO2 28 22 - 32 mmol/L [facility] Anion gap 9 2 - 15 mmol/L [facility] BUN 14 6 - 25 mg/dL [facility] Creatinine 0.98 0.80 - 1.30 mg/dL [facility] Glucose 142 70 - 199 mg/dL [facility] Comment: Interpretive Data Fasting glucose >/= [...] 2022. Calcium 8.6 8.5 - 10.3 mg/dL [facility] Blood 11/07/2023 11:0 1 PM ELECTRICAL LABORATORY TECHNICIAN 11/07/2023 11:12 PM ELECTRICAL LABORATORY TECHNICIAN Deisy Ayala MD LAB BLOOD ORDERABLES Fide l Result [facility] Department [place] [address] * (ABNORMAL) CBC without differential (11/07/2023 11:01 PM ELECTRICAL LABORATORY TECHNICIAN) [facility] WBC 12.0(H) 3.8 - 9.9 K/cumm [facility] Hgb 9.5(L) 13.0 - 17.5 g/dL [facility] Hct 29.0(L) 38.9 - 50.3 % [facility] Plt 343 150 - 400 K/cumm [facility] MPV 10.9 9.1 - 12.3 fL [facility] RBC 3.08(L) 4.30 - 5.80 M/cumm [facility] MCV 94.2 81.3 - 96.4 fL [facility] MCH 30.8 27.1 - 33.3 pg [facility] MCHC 32.8 32.3 - 35.7 g/dL [facility] RDW CV 13.7 11.1 - 14.9 % [facility] RDW SD 46.8 35.7 - 48.1 fL [facility] NRBC abs 0.00 0.00 - 0.01 K/cumm [facility] Blood 11/07/2023 11:0 1 PM ELECTRICAL LABORATORY TECHNICIAN 11/07/2023 11:12 PM ELECTRICAL LABORATORY TECHNICIAN Deisy Ayala MD LAB BLOOD ORDERABLES Fide l Result Performing Organization Address City/State/[facility] Co de Phone Number [facility] Department [place] [address] * [place] CRITICAL CARE ILL/INJURED PATIENT INIT 30-74 MIN (11/07/2023 10:43 PM ELECTRICAL LABORATORY TECHNICIAN) Narrative Temo Hampton MD - 11/07/2023 10:43 PM ELECTRICAL LABORATORY TECHNICIAN Temo Hampton MD ? 11/07/2023 10:44 PM Critical Care Performed by: Temo Hampton MD Authorized by: Temo Hampton MD ?? Critical care provider statement: As reflected in the history, physical exam, orders, notes, and/or MDM, I was personally present while the patient was critically ill and provided critical care services for 35 minutes, excluding time involved in separately billable procedures. ??Critical care was necessary to treat or prevent imminent or life-threatening deterioration of the following condition(s): ?? severe neurologic condition ?? Concern for post-op epidural hematoma. ??Critical care was time spent by me providing the following: ? continuous telemetry, continuous pulse oximetry, continuous capnography and serial bedside patient exams ?? frequent neurologic exams and advanced imaging MRI ?? I provided emergent necessary critical care medicine services to this patient. I ordered and reviewed test results and/or imaging studies. I spent time discussing the management of this critically ill patient with consultants and the medical staff. I spent time discussing the management and therapeutic options for this critically ill patient with the patient themselves or with the appropriate designated surrogate decision-maker. I spent time documenting in the medical record. I admitted this patient to an Intensive Care unit (ICU) and discussed management with the admitting team. us Temo Hampton MD IN CLINIC/BEDSIDE ORDERABLE S Final Result documented in this encounter Visit Diagnoses Diagnosis 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 Acute postoperative pain Other acute postoperative pain 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 documented in this encounter Admitting Diagnoses Diagnosis 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 documented in this encounter Administered Medications Inactive Administered Medications - up to 3 most recent administrations Medication Order MAR Action Action Date Dose Rate Site acetaminophen (TYLENOL) tablet 1,000 mg 1,000 mg, oral, Every 6 hours, First dose (after last modification) on Helene 11/08/23 at 1215 Given 11/16/2023 11:40 AM ELECTRICAL LABORATORY TECHNICIAN 1,000 mg Given 11/16/2023 5:14 AM ELECTRICAL LABORATORY TECHNICIAN 1,000 mg Given 11/15/2023 11:11 PM ELECTRICAL LABORATORY TECHNICIAN 1,000 mg acyclovir (ZOVIRAX) tablet 400 mg 400 mg, oral, 2 times daily, First dose on Sun11/09/23 at 1030, Indications: Prophylaxis, MedicalIndications:Prophylaxis, Medical Given 11/16/2023 8:30 AM ELECTRICAL LABORATORY TECHNICIAN 400 mg Given 11/15/2023 9:11 PM ELECTRICAL LABORATORY TECHNICIAN 400 mg Given 11/15/2023 8:36 AM ELECTRICAL LABORATORY TECHNICIAN 400 mg bisacodyL (DULCOLAX) suppository 10 mg 10 mg, rectal, Daily, First dose on 11/10/23 at 1115, Indications: constipationIndications:constipation Given 11/14/2023 8:17 AM ELECTRICAL LABORATORY TECHNICIAN 10 mg Given 11/10/2023 4:36 PM ELECTRICAL LABORATORY TECHNICIAN 10 mg ceFAZolin (ANCEF) 2,000 mg/20 mL in sterile water (premix) 2,000 mg 2,000 mg, intravenous, at 400 mL/hr, Administer over 3 Minutes, Every 8 hours scheduled, First dose (after last modification) on Helene 11/08/23 at 1630, Indications: Prophylaxis, SurgicalIndications:Prophylaxis, Surgical Given 11/12/2023 8:56 AM ELECTRICAL LABORATORY TECHNICIAN 2,000 mg 400 mL/hr Given 11/12/2023 12:07 AM ELECTRICAL LABORATORY TECHNICIAN 2,000 mg 400 mL/hr Given 11/11/2023 5:03 PM ELECTRICAL LABORATORY TECHNICIAN 2,000 mg 400 mL/hr cetirizine (ZyrTEC) tablet 10 mg 10 mg, oral, Daily, First dose on Sun11/08/23 at 1500 Given 11/16/2023 8:29 AM ELECTRICAL LABORATORY TECHNICIAN 10 mg Given 11/15/2023 8:36 AM ELECTRICAL LABORATORY TECHNICIAN 10 mg Given 11/14/2023 8:18 AM ELECTRICAL LABORATORY TECHNICIAN 10 mg cholecalciferol (VITAMIN D-3) capsule 5,000 Units 5,000 Units, oral, Daily, First dose on Sun11/08/23 at 1500, Each capsule contains 5,000 units (125 mcg) of cholecalciferol, Given 11/16/2023 11:40 AM ELECTRICAL LABORATORY TECHNICIAN 5,000 Units Given 11/15/2023 8:36 AM ELECTRICAL LABORATORY TECHNICIAN 5,000 Units Given 11/14/2023 8:18 AM ELECTRICAL LABORATORY TECHNICIAN 5,000 Units cyclobenzaprine (FLEXERIL) tablet 5 mg 5 mg, oral, 3 times daily PRN, muscle spasms, Starting on Sun11/08/23 at 1709 Given 11/08/2023 6:05 PM ELECTRICAL LABORATORY TECHNICIAN 5 mg cyclobenzaprine (FLEXERIL) tablet 5 mg 5 mg, oral, 3 times daily, First dose (after last modification) on Sun11/12/23 at 1600 Given 11/16/2023 8:30 AM ELECTRICAL LABORATORY TECHNICIAN 5 m g Given 11/15/2023 9:11 PM ELECTRICAL LABORATORY TECHNICIAN 5 mg Given 11/15/2023 3:04 PM ELECTRICAL LABORATORY TECHNICIAN 5 mg dexAMETHasone (DECADRON) 4 mg/mL injection 4 mg 4 mg, intravenous, Administer over 2 Minutes, Every 6 hours scheduled, First dose on Sun11/08/23 at 1230, For 7 days Given 11/14/2023 5:17 AM ELECTRICAL LABORATORY TECHNICIAN 4 mg Given 11/13/2023 11:40 PM ELECTRICAL LABORATORY TECHNICIAN 4 mg Given 11/13/2023 5:00 PM ELECTRICAL LABORATORY TECHNICIAN 4 mg dexAMETHasone (DECADRON) tablet 2 mg 2 mg, oral, Every 6 hours scheduled, First dose on Sun11/14/23 at 1200, For 1 day Given 11/15/2023 6:09 AM ELECTRICAL LABORATORY TECHNICIAN 2 mg Given 11/14/2023 11:54 PM ELECTRICAL LABORATORY TECHNICIAN 2 mg Given 11/14/2023 5:53 PM ELECTRICAL LABORATORY TECHNICIAN 2 mg dexAMETHasone (DECADRON) tablet 2 mg 2 mg, oral, Every 12 hours scheduled, First dose on Sun11/15/23 at 1200, For 1 day Given 11/15/2023 9:11 PM ELECTRICAL LABORATORY TECHNICIAN 2 mg Given 11/15/2023 12:34 PM ELECTRICAL LABORATORY TECHNICIAN 2 mg dexAMETHasone (DECADRON) tablet 2 mg 2 mg, oral, Once, On Sun11/16/23 at 0900, For 1 dose Given 11/16/2023 8:30 AM ELECTRICAL LABORATORY TECHNICIAN 2 mg dextrose (D10W) 10% bolus 250 mL 250 mL, intravenous, at 1,000 mL/hr, Administer over 15 Minutes, Every 15 min PRN, blood glucose less than 70 mg/dL and UNABLE to swallow/take PO glucose/juice., Starting on Sun11/09/23 at 1457, After treatment for hypoglycemia, recheck BG followed by treatment every 15 minutes until the BG is greater than 100 mg/dL. Then check BG 1 hour post treatment. If BG is less than 100 mg/dL, repeat Q15 minute BG checks and treatment. Call MD for each episode of hypoglycemia., Indications: hypoglycemic disorderIndications:hypoglyce shasta disorder dextrose 5% and Lactated Ringer's infusion 10 mL/hr, intravenous, Continuous, Starting on Sun11/09/23 at 0000 Rate/Dose Verify 11/09/2023 11:00 AM ELECTRICAL LABORATORY TECHNICIAN 10 mL/hr 10 mL/hr Rate/Dose Verify 11/09/2023 10:00 AM ELECTRICAL LABORATORY TECHNICIAN 10 mL/hr 10 mL/ hr Rate/Dose Verify 11/09/2023 9:00 AM ELECTRICAL LABORATORY TECHNICIAN 10 mL/hr 10 mL/h r dextrose gel in packet 15 g 15 g, oral, Every 15 min PRN, low blood sugar, blood glucose less than 70 mg/dL, Starting on Sun11/09/23 at 1457, If patient is alert and able to eat/drink, give 15 gm glucose or one juice (4 fluid ounces) NOT ORANGE JUICE. After treatment for hypoglycemia, recheck BG followed by treatment every 15 minutes until the BG is greater than 100 mg/dL. Then check BG 1 hour post-treatment. If BG is less than 100 mg/dL, repeat Q15 minute BG checks and treatment. Call MD for each episode of hypoglycemia., Indications: hypoglycemic disorderIndications:hypoglycemic disorder dilTIAZem XR (CARDIZEM CD,DILACOR XR) 24 hour capsule 240 mg 240 mg, oral, 2 times daily, First dose on Sun11/13/23 at 1045, Do not crush, chew, cut, dissolve, open or otherwise manipulate tablet/capsule., Indications: hypertensionIndications:hypertension Given 11/16/2023 8:29 AM ELECTRICAL LABORATORY TECHNICIAN 240 mg Given 11/15/2023 9:11 PM ELECTRICAL LABORATORY TECHNICIAN 240 mg Given 11/15/2023 8:36 AM ELECTRICAL LABORATORY TECHNICIAN 240 mg docusate sodium (COLACE) capsule 100 mg 100 mg, oral, 2 times daily, First dose on Sun11/08/23 at 1230, If able to swallow capsules. Hold for diarrhea., Indications: constipation, Stool SoftenerIndications:constipation,Stool Softener Given 11/10/2023 8:01 AM ELECTRICAL LABORATORY TECHNICIAN 100 mg Given 11/09/2023 8:33 PM ELECTRICAL LABORATORY TECHNICIAN 100 mg Given 11/09/2023 9:16 AM ELECTRICAL LABORATORY TECHNICIAN 100 mg fentaNYL (SUBLIMAZE) preservative free injection intravenous, As needed, Starting on Sun11/09/23 at 0808, Intra-Op Given 11/09/2023 8:08 AM ELECTRICAL LABORATORY TECHNICIAN 50 mcg gabapentin (NEURONTIN) capsule 300 mg 300 mg, oral, 3 times daily, First dose on Sun11/08/23 at 1600 Given 11/12/2023 8:57 AM ELECTRICAL LABORATORY TECHNICIAN 300 mg Given 11/11/2023 9:39 PM ELECTRICAL LABORATORY TECHNICIAN 300 mg Given 11/11/2023 5:29 PM ELECTRICAL LABORATORY TECHNICIAN 300 mg gabapentin (NEURONTIN) tablet 600 mg 600 mg, oral, 3 times daily, First dose (after last modification) on Sun11/12/23 at 1600 Given 11/16/2023 8:30 AM ELECTRICAL LABORATORY TECHNICIAN 600 mg Given 11/15/2023 9:11 PM ELECTRICAL LABORATORY TECHNICIAN 600 mg Given 11/15/2023 3:04 PM ELECTRICAL LABORATORY TECHNICIAN 600 mg glucagon injection 1 mg 1 mg, intramuscular, Every 30 min PRN, low blood sugar, blood glucose less than 70 mg/dL AND no IV access AND unable to take PO glucose/juice., Starting on Sun11/09/23 at 1457, After Glucagon is administered, position patient on side if possible to avoid aspiration. Obtain IV access. Follow glucagon treatment with glucose treatment or IV dextrose. After treatment for hypoglycemia, recheck BG followed by treatment every 15 minutes until the BG is greater than 100 mg/dL. Then check BG 1 hour post treatment. If BG is less than 100 mg/dL, repeat Q15 minute BG checks and treatment. Call MD for each episode of hypoglycemia. Reconstitute 1 mg vial with 1 mL SWFI. Use immediately following reconstitution. hydrALAZINE (APRESOLINE) injection 10 mg 10 mg, intravenous, Administer over 2 Minutes, Every 4 hours PRN, high blood pressure, SBP >180, Starting on Helene 11/08/23 at 1248 Given 11/08/2023 12:54 PM ELECTRICAL LABORATORY TECHNICIAN 10 mg HYDROmorphone (DILAUDID) injection 0.25 mg 0.25 mg, intravenous, Administer over 2 Minutes, Every 1 hour PRN, breakthrough pain, Starting on Sun11/08/23 at 1155 Given 11/08/2023 7:17 PM ELECTRICAL LABORATORY TECHNICIAN 0.25 mg Given 11/08/2023 5:30 PM ELECTRICAL LABORATORY TECHNICIAN 0.25 mg Given 11/08/2023 2:03 PM ELECTRICAL LABORATORY TECHNICIAN 0.25 mg HYDROmorphone (DILAUDID) injection 0.5 mg 0.5 mg, intravenous, Administer over 2 Minutes, Every 1 hour PRN, breakthrough pain, Starting on Sun11/08/23 at 2229 Given 11/08/2023 10:31 PM ELECTRICAL LABORATORY TECHNICIAN 0.5 mg insulin lispro (HumaLOG, ADMELOG) 100 unit/mL injection 0-10 Units 0-10 Units, subcutaneous, 3 times daily with meals, First dose on Sun11/09/23 at 1800, Blood glucose mg/dL: 149 or less: No insulin 150-199: add 2 unit 200-249: add 4 units 250-299: add 6 units 300-349: add 8 units and notify physician for adjustment of insulin orders. 350-399: add 10 units and notify physician for adjustment of insulin orders. Over 400: Notify physician for adjustment of insulin orders. Do NOT hold for NPO Status, Indications: Diabetes MellitusIndications:Diabetes Mellitus Given 11/16/2023 11:40 AM ELECTRICAL LABORATORY TECHNICIAN 2 Units Left Lower Abdomen Given 11/15/2023 5:22 PM ELECTRICAL LABORATORY TECHNICIAN 2 Units Le ft Lower Abdomen Given 11/15/2023 12:35 PM ELECTRICAL LABORATORY TECHNICIAN 2 Units L eft Lower Abdomen insulin lispro (HumaLOG, ADMELOG) 100 unit/mL injection 0-5 Units 0-5 Units, subcutaneous, Nightly, First dose on Sun11/09/23 at 2100, Blood glucose mg/dL: 149 or less: No insulin 150-199: add 1 unit 200-249: add 2 units 250-299: add 3 units 300-349: add 4 units and notify physician for adjustment of insulin orders. 350-399: add 5 units and notify physician for adjustment of insulin orders. Over 400: Notify physician for adjustment of insulin orders. Do NOT hold for NPO Status, Indications: Diabetes MellitusIndications:Diabetes Mellitus Given 11/15/2023 9:25 PM ELECTRICAL LABORATORY TECHNICIAN 1 Units Right Lower Abdomen Given 11/14/2023 8:46 PM ELECTRICAL LABORATORY TECHNICIAN 1 Units Ri ght Lower Abdomen Given 11/13/2023 10:00 PM ELECTRICAL LABORATORY TECHNICIAN 1 Units L eft Lower Abdomen insulin lispro (HumaLOG, ADMELOG) 100 unit/mL injection 2-7 Units 2-7 Units, subcutaneous, Every 4 hours scheduled, First dose on Sun11/08/23 at 1230, Blood Sugar High Dose - Surgical/Post-Op ICU 139 or less No insulin 140 - 175 2 unit 176 - 200 3 unit 201 - 250 5 units 251 - 299 7 units Greater than 299 Call MD for hyperglycemia management instructions Do NOT hold for NPO status., Indications: Diabetes MellitusIndications:Diabetes Mellitus Given 11/09/2023 12:34 PM ELECTRICAL LABORATORY TECHNICIAN 2 Units Left Upper Arm Given 11/09/2023 5:06 AM ELECTRICAL LABORATORY TECHNICIAN 2 Units Le ft Upper Arm Given 11/08/2023 11:51 PM ELECTRICAL LABORATORY TECHNICIAN 2 Units R ight Upper Arm ioversoL (OPTIRAY 350) injection As needed, Starting on Sun11/09/23 at 0837, Intra-Op Given 11/09/2023 8:37 AM ELECTRICAL LABORATORY TECHNICIAN 100 mL ioversoL (OPTIRAY 350) syringe 100 mL 100 mL, intravenous, Once in imaging, contrast, Starting on Sun11/09/23 at 1208, For 1 dose Contrast Given 11/09/2023 12:23 PM ELECTRICAL LABORATORY TECHNICIAN 63 mL irbesartan (AVAPRO) tablet 150 mg 150 mg, oral, Every morning, First dose on Sun11/12/23 at 1630, Hold for SBP < 110, Indications: hypertensionIndications:hypertensio n Given 11/16/2023 8:29 AM ELECTRICAL LABORATORY TECHNICIAN 150 mg Given 11/15/2023 8:36 AM ELECTRICAL LABORATORY TECHNICIAN 150 mg Given 11/14/2023 8:18 AM ELECTRICAL LABORATORY TECHNICIAN 150 mg ketorolac (TORADOL) 15 mg/mL injection 15 mg 15 mg, intravenous, Every 6 hours scheduled, First dose on Helene 11/08/23 at 2100, For 3 doses Given 11/09/2023 5:0 6 AM ELECTRICAL LABORATORY TECHNICIAN 15 mg Given 11/08/2023 8:44 PM ELECTRICAL LABORATORY TECHNICIAN 15 mg Lactated Ringer's (LR) bolus 500 mL 500 mL, intravenous, at 500 mL/hr, Administer over 1 Hours, Once, On Sun11/09/23 at 0000, For 1 dose New Bag 11/08/2023 11:33 PM ELECTRICAL LABORATORY TECHNICIAN 500 mL 500 mL/hr lactulose 0.67 gram/mL oral solution 20 g 20 g, oral, Once, On 11/10/23 at 1715, For 1 dose Given 11/10/2023 5:19 PM ELECTRICAL LABORATORY TECHNICIAN 20 g levETIRAcetam (KEPPRA) tablet 1,000 mg 1,000 mg, oral, 2 times daily, First dose on Helene 11/08/23 at 1245 Given 11/16/2023 8:30 AM ELECTRICAL LABORATORY TECHNICIAN 1,000 mg Given 11/15/2023 9:11 PM ELECTRICAL LABORATORY TECHNICIAN 1,000 mg Given 11/15/2023 8:36 AM ELECTRICAL LABORATORY TECHNICIAN 1,000 mg lidocaine in dextrose 5% 2 g/250 mL (8 mg/mL) infusion (premix) 1 mg/kg/hr ? 68.4 kg [place] weight (8.55 mL/hr), 8 mg/mL, intravenous, Continuous, Starting on Helene 11/08/23 at 2315, Until 11/11/23 at 0813, Indications: Pain, I understand that a pain management consult is required and that this therapy can only be ordered by the Pain Service, Palliative Care Service, or ICU team. I attest that I/authorizing provider am an: ICU clinician that will order the pain management consult linked to this order, Call MD for symptoms of toxicity (ringing in ears, metallic taste, somnolence, numb lips) or lidocaine level greater than 5., RoutineIndications:Pain New Bag 11/11/2023 4:51 AM ELECTRICAL LABORATORY TECHNICIAN 1 mg/kg/hr 8.55 mL /hr New Bag 11/09/2023 11:32 PM ELECTRICAL LABORATORY TECHNICIAN 1 mg/kg/hr 8.55 mL/hr Rate/Dose Change 11/09/2023 3:11 PM ELECTRICAL LABORATORY TECHNICIAN 1 mg/kg/hr 8.55 mL /hr lidocaine PF (XYLOCAINE) 10 mg/mL (1 %) preservative free injection As needed, Starting on Sun11/09/23 at 0809, Intra-Procedure (IR), Indications: Administration of Local AnesthesiaIndications:Administration of Local Anesthesia Given 11/09/2023 8:09 AM ELECTRICAL LABORATORY TECHNICIAN 4 mL magnesium sulfate 2 g/50 mL in water (premix) 2 g 2 g, intravenous, Administer over 60 Minutes, Once, On Sun11/08/23 at 1400, For 1 dose New Bag 11/08/2023 1:54 PM ELECTRICAL LABORATORY TECHNICIAN 2 g midazolam (VERSED) 1 mg/mL injection As needed, Starting on Sun11/09/23 at 0808, Intra-Op Given 11/09/2023 8:08 AM ELECTRICAL LABORATORY TECHNICIAN 1 mg ondansetron (ZOFRAN) 4 mg/2 mL injection - ADS Override Pull Starting on Sun11/08/23 at 1352, For 1 dose, Created by cabinet override ondansetron (ZOFRAN) injection 4 mg 4 mg, intravenous, Administer over 2 Minutes, Every 6 hours PRN, nausea, Starting on Sun11/08/23 at 1352, 1st line Given 11/09/2023 1:22 PM ELECTRICAL LABORATORY TECHNICIAN 4 mg Given 11/09/2023 9:58 AM ELECTRICAL LABORATORY TECHNICIAN 4 mg Given 11/08/2023 8:51 PM ELECTRICAL LABORATORY TECHNICIAN 4 mg ondansetron (ZOFRAN) injection 4 mg 4 mg, intravenous, Administer over 2 Minutes, Once, On Sun11/08/23 at 1745, For 1 dose Given 11/08/2023 5:14 PM ELECTRICAL LABORATORY TECHNICIAN 4 mg oxyCODONE (ROXICODONE) tablet 10 mg 10 mg, oral, Every 4 hours PRN, 1st line for pain, Starting on Sun11/08/23 at 2257, Indications: PainIndications:Pain Given 11/11/2023 12:54 PM ELECTRICAL LABORATORY TECHNICIAN 10 mg Given 11/09/2023 2:58 AM ELECTRICAL LABORATORY TECHNICIAN 10 mg oxyCODONE (ROXICODONE) tablet 5 mg 5 mg, oral, Every 4 hours PRN, 1st line for pain, Starting on Helene 11/08/23 at 1204, Indications: PainIndications:Pain Given 11/08/2023 8:44 PM ELECTRICAL LABORATORY TECHNICIAN 5 mg Given 11/08/2023 4:38 PM ELECTRICAL LABORATORY TECHNICIAN 5 mg Given 11/08/2023 12:23 PM ELECTRICAL LABORATORY TECHNICIAN 5 mg oxyCODONE (ROXICODONE) tablet 5 mg 5 mg, oral, Once, On Helene 11/08/23 at 2330, For 1 dose, Indications: PainIndications:Pain Given 11/08/2023 11:04 PM ELECTRICAL LABORATORY TECHNICIAN [address] (PROTONIX) extended release tablet 40 mg 40 mg, oral, Daily, First dose on Helene 11/08/23 at 1245, Do not crush, chew, cut, dissolve, open or otherwise manipulate tablet/capsule., Indications: Treatment of Non-Bleeding Gastric DisorderIndications:Treatment of Non-Bleeding Gastric Disorder Given 11/16/2023 8:30 AM ELECTRICAL LABORATORY TECHNICIAN 40 mg Given 11/15/2023 8:36 AM ELECTRICAL LABORATORY TECHNICIAN 40 mg Given 11/14/2023 8:17 AM ELECTRICAL LABORATORY TECHNICIAN 40 mg prochlorperazine (COMPAZINE) injection 5 mg 5 mg, intravenous, Administer over 2 Minutes, Every 6 hours PRN, nausea, vomiting, 2nd line, Starting on Helene 11/08/23 at 1709 Given 11/09/2023 10:02 AM ELECTRICAL LABORATORY TECHNICIAN 5 mg Given 11/08/2023 5:15 PM ELECTRICAL LABORATORY TECHNICIAN 5 mg protamine injection 40 mg 40 mg, intravenous, Once, On Helene 11/08/23 at 0101, For 1 dose, Rate not to exceed 50 mg over 10 minutes, Indications: Heparin Toxicity, Low Molecular Weight Heparin ReversalIndications:Heparin Toxicity,Low Molecular Weight Heparin Reversal Given 11/08/2023 1:35 AM ELECTRICAL LABORATORY TECHNICIAN 40 mg ramelteon (ROZEREM) tablet 8 mg 8 mg, oral, Nightly, First dose on Helene 11/08/23 at 2115, Indications: Sleep-Onset InsomniaIndications:Sleep-Onset Insomnia Given 11/15/2023 11:11 PM ELECTRICAL LABORATORY TECHNICIAN 8 mg Given 11/14/2023 11:53 PM ELECTRICAL LABORATORY TECHNICIAN 8 mg Given 11/13/2023 10:00 PM ELECTRICAL LABORATORY TECHNICIAN 8 mg senna (SENOKOT) tablet 1 tablet 1 tablet, oral, 2 times daily, First dose on Helene 11/08/23 at 1230, If able to swallow tablets. Hold for diarrhea., Indications: constipationIndications:constipation Given 11/10/2023 8:01 AM ELECTRICAL LABORATORY TECHNICIAN 1 table t Given 11/09/2023 8:33 PM ELECTRICAL LABORATORY TECHNICIAN 1 tablet Given 11/09/2023 9:16 AM ELECTRICAL LABORATORY TECHNICIAN 1 tablet senna-docusate (PERICOLACE) 8.6-50 mg per tablet 2 tablet 2 tablet, oral, 2 times daily, First dose on 11/10/23 at 1115 Given 11/16/2023 8:29 AM ELECTRICAL LABORATORY TECHNICIAN 2 tablets Given 11/15/2023 9:10 PM ELECTRICAL LABORATORY TECHNICIAN 2 tablets Given 11/15/2023 8:36 AM ELECTRICAL LABORATORY TECHNICIAN 2 tablets sodium chloride 0.9% flush 0.5-20 mL 0.5-20 mL, intra-catheter, Every 8 hours scheduled, First dose on Sun11/09/23 at 1700, Pre-Procedure (IR), Flush volume based on line type and size. Given 11/16/2023 5:14 AM ELECTRICAL LABORATORY TECHNICIAN 10 mL Given 11/15/2023 9:11 PM ELECTRICAL LABORATORY TECHNICIAN 10 mL Given 11/15/2023 6:09 AM ELECTRICAL LABORATORY TECHNICIAN 10 mL sodium chloride 0.9% flush 0.5-20 mL 0.5-20 mL, intra-catheter, As needed, line care, Starting on Sun11/09/23 at 1620, Pre-Procedure (IR), Flush volume based on line type and size. Flush before and after each use. sodium chloride 0.9% IVPB 0-250 mL 0-250 mL, intravenous, Once, On Sun11/11/23 at 1045, For 1 dose, Prime blood tubing and administer amount needed to clear line (usually 50-100 mL) after transfusion complete. New Bag 11/11/2023 12:55 PM ELECTRICAL LABORATORY TECHNICIAN 250 mL tamsulosin (FLOMAX) extended release capsule 0.8 mg 0.8 mg, oral, Daily with dinner, First dose (after last modification) on Helene 11/08/23 at 1800, Do not crush, chew, cut, dissolve, open or otherwise manipulate tablet/capsule. Given 11/15/2023 5:23 PM ELECTRICAL LABORATORY TECHNICIAN 0.8 mg Given 11/14/2023 5:53 PM ELECTRICAL LABORATORY TECHNICIAN 0.8 mg Given 11/13/2023 5:00 PM ELECTRICAL LABORATORY TECHNICIAN 0.8 mg traMADoL (ULTRAM) tablet 50 mg 50 mg, oral, Once, On Sun11/12/23 at 0945, For 1 dose Given 11/12/2023 9:15 AM ELECTRICAL LABORATORY TECHNICIAN 50 mg traMADoL (ULTRAM) tablet 50 mg 50 mg, oral, Every 4 hours PRN, 1st line for pain, Starting on Sun11/12/23 at 1545 Given 11/14/2023 1:00 PM ELECTRICAL LABORATORY TECHNICIAN 50 mg traZODone (DESYREL) tablet 50 mg 50 mg, oral, Once, On Helene 11/08/23 at 2145, For 1 dose Given 11/08/2023 9:15 PM ELECTRICAL LABORATORY TECHNICIAN 50 mg vancomycin 1,250 mg/262.5 mL in sodium chloride 0.9% (premix) 1,250 mg 1,250 mg (rounded from 1,329 mg = 15 mg/kg ? 88.6 kg), intravenous, Administer over 60 Minutes, Every 12 hours, First dose on Helene 11/08/23 at 1500, Indications: Prophylaxis, SurgicalIndications:Prophylaxis, Surgical New Bag 11/12/2023 5:19 AM ELECTRICAL LABORATORY TECHNICIAN 1,250 mg New Bag 11/11/2023 5:16 PM ELECTRICAL LABORATORY TECHNICIAN 1,250 mg New Bag 11/11/2023 2:32 AM ELECTRICAL LABORATORY TECHNICIAN 1,250 mg documented in this encounter Discontinued Medications Medication Sig Discontinue Reason Start Date End Da te enoxaparin (LOVENOX) 80 mg/0.8 mL syringeIndications:Pu lmonary Embolism Inject 0.8 mL (80 mg total) under the skin every 12 (twelve) hours 10/30/2023 11/16/2023 enoxaparin (LOVENOX) 80 mg/0.8 mL syringeIndications:Pu lmonary Embolism Inject 0.8 mL (80 mg total) under the skin every 12 (twelve) hours Hold for 2 weeks post-operatively Stop Taking at Discharge 11/22/2023 11/16/2023 irbesartan (AVAPRO) 300 mg tabletIndications:hyp ertension Take 1 tablet (300 mg total) by mouth every morning Stop Taking at Discharge 08/10/2021 11/16/2023 fish,bora,flax oils-[id number] 400-400-400 mg capsuleIndications:Scott pplement Take 1 tablet by mouth import coordinator before breakfast Stop Taking at Discharge 11/16/2023 oxyCODONE (ROXICODONE) 5 mg immediate release tabletIndications:Ludwig n Take 1 tablet (5 mg total) by mouth every 4 (four) hours as needed for pain Stop Taking at Discharge 10/30/2023 11/16/2023 senna-docusate (PERICOLACE) 8.6-50 mgIndications:constip ation Take 1 tablet by mouth 2 (two) times a day for 15 days Stop Taking at Discharge 10/30/2023 11/16/2023 ketorolac (TORADOL) 10 mg tablet Take 1 tablet (10 mg total) by mouth every 6 (six) hours as needed for pain Stop Taking at Discharge 11/06/2023 11/16/2023 documented as of this encounter Historical Medications * This list may reflect changes made after this encounter. enoxaparin (LOVENOX) 80 mg/0.8 mL syringeIndication s:Pulmonary Embolism Inject 0.8 mL (80 mg total) under the skin every 12 (twelve) hours Hold for 2 weeks post-operativ lise 11/22/2023 11/16/2023 added in this encounter Active and Recently Administered Medications Times are shown in ELECTRICAL LABORATORY TECHNICIAN. Scheduled Medication Order 11/14/2023 11/15/2023 11/16/2023 acetaminophen (TYLENOL) tablet 1,000 mg 1,000 mg, oral, Every 6 hours, First dose (after last modification) on Helene 11/08/23 at 1215 0517 (Given - Provider: Son Brown RN)1207 (Given - Provider: Radha Hancock, NARENDRA)1753 (Given - Provider: Radha Hancock, NARENDRA)2353 (Given - Provider: Joann Hurtado, NARENDRA) 0609 (Given - Provider: Joann Hurtado RN)1234 (Given - Provider: Radha Hancock, NARENDRA)1723 (Given - Provider: Radha Hancock RN)2311 (Given - Provider: Joann Hurtado RN) 0514 (Given - Provider: Joann Hurtado RN)1140 (Given - Provider: Deisy Chiang, NARENDRA) acyclovir (ZOVIRAX) tablet 400 mg 400 mg, oral, 2 times daily, First dose on Sun11/09/23 at 1030, Indications: Prophylaxis, Medical 0817 (Given - Provider: Radha Hnacock, NARENDRA)2032 (Given - Provider: Joann Hurtado RN) 0836 (Given - Provider: Radha Hancock RN)211 (Given - Provider: Joann Hurtado RN) 0830 (Given - Provider: Deisy Chiang, NARENDRA) bisacodyL (DULCOLAX) suppository 10 mg 10 mg, rectal, Daily, First dose on Sun11/10/23 at 1115, Indications: constipation 0817 (Given - Provider: Radha Hancock RN) 0758 (Not Given - Provider: Radha Hancock RN - Reason: Patient/family refused) 0936 (Not Given - Provider: Deisy Chiang RN - Reason: Patient/family refused - Comment: pt wants to try to go and use later if needed) cetirizine (ZyrTEC) tablet 10 mg 10 mg, oral, Daily, First dose on Helene 11/08/23 at 1500 0818 (Given - Provider: Radha Hancock RN) 0836 (Given - Provider: Radha Hancock RN) 0829 (Given - Provider: Deisy Chiang, NARENDRA) cholecalciferol (VITAMIN D-3) capsule 5,000 Units 5,000 Units, oral, Daily, First dose on Helene 11/08/23 at 1500, Each capsule contains 5,000 units (125 mcg) of cholecalciferol, 0818 (Given - Provider: Radha Hancock RN) 0836 (Given - Provider: Radha Hancock RN) 1140 (Given - Provider: Deisy Chiang RN) cyclobenzaprine (FLEXERIL) tablet 5 mg 5 mg, oral, 3 times daily, First dose (after last modification) on Sun11/12/23 at 1600 0818 (Given - Provider: Radha Hancock RN)1518 (Given - Provider: Radha Hancock, NARENDRA)203 (Given - Provider: Joann Hurtado RN) 0836 (Given - Provider: Radha Hancock RN)1504 (Given - Provider: Radha Hancock RN)2111 (Given - Provider: Joann Hurtado, NARENDRA) 0830 (Given - Provider: Deisy Chiang RN) dexAMETHasone (DECADRON) 4 mg/mL injection 4 mg (CANCELED) 4 mg, intravenous, Administer over 2 Minutes, Every 6 hours scheduled, First dose on Sun11/08/23 at 1230, For 7 days 0517 (Given - Provider: Son Brown RN) dexAMETHasone (DECADRON) tablet 2 mg (COMPLETED)(Linked Group 1) 2 mg, oral, Every 6 hours scheduled, First dose on Sun11/14/23 at 1200, For 1 day 1259 (Given - Provider: Radha Hancock RN)1753 (Given - Provider: Radha Hancock RN)2354 (Given - Provider: Joann Hurtado RN) 0609 (Given - Provider: Joann Hurtado RN) dexAMETHasone (DECADRON) tablet 2 mg (COMPLETED)(Linked Group 1) 2 mg, oral, Every 12 hours scheduled, First dose on Sun11/15/23 at 1200, For 1 day 1234 (Given - Provider: Radha Hancock RN)2111 (Given - Provider: Joann Hurtado RN) dexAMETHasone (DECADRON) tablet 2 mg (COMPLETED)(Linked Group 1) 2 mg, oral, Once, On Sun11/16/23 at 0900, For 1 dose 0830 (Given - Provider: Deisy Chiang RN) dilTIAZem XR (CARDIZEM CD,DILACOR XR) 24 hour capsule 240 mg 240 mg, oral, 2 times daily, First dose on Sun11/13/23 at 1045, Do not crush, chew, cut, dissolve, open or otherwise manipulate tablet/capsule., Indications: hypertension 0817 (Given - Provider: Radha Hancock RN)2032 (Given - Provider: Joann Hurtado RN) 0836 (Given - Provider: Radha Hancock RN)2110 (Given - Provider: Joann Hurtado RN) 0829 (Given - Provider: Deisy Chiang RN) gabapentin (NEURONTIN) tablet 600 mg 600 mg, oral, 3 times daily, First dose (after last modification) on Sun11/12/23 at 1600 0818 (Given - Provider: Radha Hancock RN)1518 (Given - Provider: Radha Hancock RN)2032 (Given - Provider: Joann Hurtado, NARENDRA) 08 (Given - Provider: Radha Hancock RN)1504 (Given - Provider: Radha Hancock RN)2110 (Given - Provider: Joann Hurtado RN) 0830 (Given - Provider: Deisy Chiang RN) insulin lispro (HumaLOG, ADMELOG) 100 unit/mL injection 0-10 Units 0-10 Units, subcutaneous, 3 times daily with meals, First dose on Sun11/09/23 at 1800, Blood glucose mg/dL: 149 or less: No insulin 150-199: add 2 unit 200-249: add 4 units 250-299: add 6 units 300-349: add 8 units and notify physician for adjustment of insulin orders. 350-399: add 10 units and notify physician for adjustment of insulin orders. Over 400: Notify physician for adjustment of insulin orders. Do NOT hold for NPO Status, Indications: Diabetes Mellitus 0806 (Not Given - Provider: Radha Hancock RN - Reason: Order parameters not met)1207 (Given - Provider: Radha Hancock RN)1753 (Given - Provider: Radha Hancock RN) 0835 (Given - Provider: Radha Hancock RN)1235 (Given - Provider: Radha Hancock RN)1722 (Given - Provider: Radha Hancock RN) 0757 (Not Given - Provider: Deisy Chiang RN - Reason: Order parameters not met - Comment: bg 145)1140 (Given - Provider: Deisy Chiang RN) insulin lispro (HumaLOG, ADMELOG) 100 unit/mL injection 0-5 Units 0-5 Units, subcutaneous, Nightly, First dose on Sun11/09/23 at 2100, Blood glucose mg/dL: 149 or less: No insulin 150-199: add 1 unit 200-249: add 2 units 250-299: add 3 units 300-349: add 4 units and notify physician for adjustment of insulin orders. 350-399: add 5 units and notify physician for adjustment of insulin orders. Over 400: Notify physician for adjustment of insulin orders. Do NOT hold for NPO Status, Indications: Diabetes Mellitus 2045 (Given - Provider: Joann Hurtado RN - Comment: BG 180) 2124 (Given - Provider: Joann Hurtado RN - Comment: BG 182) irbesartan (AVAPRO) tablet 150 mg 150 mg, oral, Every morning, First dose on Sun11/12/23 at 1630, Hold for SBP < 110, Indications: hypertension 0818 (Given - Provider: Radha Hancock RN) 0836 (Given - Provider: Radha Hancock RN) 0829 (Given - Provider: Deisy Chiang RN) levETIRAcetam (KEPPRA) tablet 1,000 mg 1,000 mg, oral, 2 times daily, First dose on Sun11/08/23 at 1245 0818 (Given - Provider: Radha Hancock RN)2032 (Given - Provider: Joann Hurtado RN) 0836 (Given - Provider: Radha Hancock RN)2110 (Given - Provider: Joann Hurtado RN) 0830 (Given - Provider: Deisy Chiang RN) pantoprazole DR (PROTONIX) extended release tablet 40 mg 40 mg, oral, Daily, First dose on Sun11/08/23 at 1245, Do not crush, chew, cut, dissolve, open or otherwise manipulate tablet/capsule., Indications: Treatment of Non-Bleeding Gastric Disorder 0817 (Given - Provider: Radha Hancock RN) 0836 (Given - Provider: Radha Hancock RN) 0830 (Given - Provider: Deisy Chiang RN) ramelteon (ROZEREM) tablet 8 mg 8 mg, oral, Nightly, First dose on Helene 11/08/23 at 2115, Indications: Sleep-Onset Insomnia 2353 (Given - Provider: Joann Hurtado RN) 2311 (Given - Provider: Joann Hurtado RN) senna-docusate (PERICOLACE) 8.6-50 mg per tablet 2 tablet 2 tablet, oral, 2 times daily, First dose on 11/10/23 at 1115 0818 (Given - Provider: Radha Hancock, NARENDRA)2032 (Not Given - Provider: Joann Hurtado RN - Reason: Patient/family refused - Comment: pt had BM today) 0836 (Given - Provider: Radha Hancock RN)2109 (Given - Provider: Joann Hurtado RN) 0829 (Given - Provider: Deisy Chiang RN) sodium chloride 0.9% flush 0.5-20 mL 0.5-20 mL, intra-catheter, Every 8 hours scheduled, First dose on Sun11/09/23 at 1700, Pre-Procedure (IR), Flush volume based on line type and size. 0517 (Given - Provider: Son Brown RN)1332 (Canceled Entry - Provider: Radha Hancock RN)2048 (Given - Provider: Joann Hurtado, NARENDRA) 0609 (Given - Provider: Joann Hurtado RN)1457 (Canceled Entry - Provider: Radha Hancock RN)211 (Given - Provider: Joann Hurtado, NARENDRA) 0514 (Given - Provider: Joann Hurtado RN) tamsulosin (FLOMAX) extended release capsule 0.8 mg 0.8 mg, oral, Daily with dinner, First dose (after last modification) on Helene 11/08/23 at 1800, Do not crush, chew, cut, dissolve, open or otherwise manipulate tablet/capsule. 1753 (Given - Provider: Radha Hancock RN) 1723 (Given - Provider: Radha Hancock RN) PRN Medication Order 11/14/2023 11/15/2023 11/16/2023 dextrose (D10W) 10% bolus 250 mL(Linked Group 2) 250 mL, intravenous, at 1,000 mL/hr, Administer over 15 Minutes, Every 15 min PRN, blood glucose less than 70 mg/dL and UNABLE to swallow/take PO glucose/juice., Starting on Sun11/09/23 at 1457, After treatment for hypoglycemia, recheck BG followed by treatment every 15 minutes until the BG is greater than 100 mg/dL. Then check BG 1 hour post treatment. If BG is less than 100 mg/dL, repeat Q15 minute BG checks and treatment. Call MD for each episode of hypoglycemia., Indications: hypoglycemic disorder dextrose gel in packet 15 g(Linked Group 2) 15 g, oral, Every 15 min PRN, low blood sugar, blood glucose less than 70 mg/dL, Starting on Sun11/09/23 at 1457, If patient is alert and able to eat/drink, give 15 gm glucose or one juice (4 fluid ounces) NOT ORANGE JUICE. After treatment for hypoglycemia, recheck BG followed by treatment every 15 minutes until the BG is greater than 100 mg/dL. Then check BG 1 hour post-treatment. If BG is less than 100 mg/dL, repeat Q15 minute BG checks and treatment. Call MD for each episode of hypoglycemia., Indications: hypoglycemic disorder glucagon injection 1 mg 1 mg, intramuscular, Every 30 min PRN, low blood sugar, blood glucose less than 70 mg/dL AND no IV access AND unable to take PO glucose/juice., Starting on Sun11/09/23 at 1457, After Glucagon is administered, position patient on side if possible to avoid aspiration. Obtain IV access. Follow glucagon treatment with glucose treatment or IV dextrose. After treatment for hypoglycemia, recheck BG followed by treatment every 15 minutes until the BG is greater than 100 mg/dL. Then check BG 1 hour post treatment. If BG is less than 100 mg/dL, repeat Q15 minute BG checks and treatment. Call MD for each episode of hypoglycemia. Reconstitute 1 mg vial with 1 mL SWFI. Use immediately following reconstitution. hydrALAZINE (APRESOLINE) injection 10 mg 10 mg, intravenous, Administer over 2 Minutes, Every 4 hours PRN, high blood pressure, SBP >180, Starting on Sun11/08/23 at 1248 ondansetron (ZOFRAN) injection 4 mg 4 mg, intravenous, Administer over 2 Minutes, Every 6 hours PRN, nausea, Starting on Sun11/08/23 at 1352, 1st line prochlorperazine (COMPAZINE) injection 5 mg 5 mg, intravenous, Administer over 2 Minutes, Every 6 hours PRN, nausea, vomiting, 2nd line, Starting on Sun11/08/23 at 1709 sodium chloride 0.9% flush 0.5-20 mL 0.5-20 mL, intra-catheter, As needed, line care, Starting on Sun11/09/23 at 1620, Pre-Procedure (IR), Flush volume based on line type and size. Flush before and after each use. traMADoL (ULTRAM) tablet 50 mg 50 mg, oral, Every 4 hours PRN, 1st line for pain, Starting on Sun11/12/23 at 1545 1300 (Given - Provider: Radha Hancock RN) Linked Groups Order Group 1: dexAMETHasone (DECADRON) tablet 2 mg (COMPLETED)Jump to med 2 mg, oral, Every 6 hours scheduled, First dose on Sun11/14/23 at 1200, For 1 day Followed by dexAMETHasone (DECADRON) tablet 2 mg (COMPLETED)Jump to med 2 mg, oral, Every 12 hours scheduled, First dose on Sun11/15/23 at 1200, For 1 day Followed by dexAMETHasone (DECADRON) tablet 2 mg (COMPLETED)Jump to med 2 mg, oral, Once, On Sun11/16/23 at 0900, For 1 dose Group 2: dextrose gel in packet 15 gJump to med 15 g, oral, Every 15 min PRN, low blood sugar, blood glucose less than 70 mg/dL, Starting on Sun11/09/23 at 1457, If patient is alert and able to eat/drink, give 15 gm glucose or one juice (4 fluid ounces) NOT ORANGE JUICE. After treatment for hypoglycemia, recheck BG followed by treatment every 15 minutes until the BG is greater than 100 mg/dL. Then check BG 1 hour post-treatment. If BG is less than 100 mg/dL, repeat Q15 minute BG checks and treatment. Call MD for each episode of hypoglycemia., Indications: hypoglycemic disorder Or dextrose (D10W) 10% bolus 250 mLJump to med 250 mL, intravenous, at 1,000 mL/hr, Administer over 15 Minutes, Every 15 min PRN, blood glucose less than 70 mg/dL and UNABLE to swallow/take PO glucose/juice., Starting on Sun11/09/23 at 1457, After treatment for hypoglycemia, recheck BG followed by treatment every 15 minutes until the BG is greater than 100 mg/dL. Then check BG 1 hour post treatment. If BG is less than 100 mg/dL, repeat Q15 minute BG checks and treatment. Call MD for each episode of hypoglycemia., Indications: hypoglycemic disorder documented in this encounter Orders Medications Ordered That Armando ht Not Have Been Administered Count Last Ordered Date First Ordered Date lidocaine PF (XYLOCAINE) 10 mg/mL (1 %) preservative free injection 100 mg 1 11/12/2023 vancomycin 1,000 mg/200 mL i n dextrose 5% (premix) 1,000 mg 1 11/12/2023 lactulose 0.67 gram/mL oral solution 20 g 1 11/10/2023 Carrier Fluids for Secondary Infusion - 0.9% Sodium Chloride 1 11/09/2023 dextrose (D10W) 10% bolus 250 mL 2 11/09/19 24 11/08/2023 dextrose gel in packet 15 g 2 11/09/2023 11/08/2023 glucagon injection 1 mg 2 11/09/202302/2024 sodium chloride 0.9% flush 0.5-20 mL 03/2024 sodium chloride 0.9% infusion 1 11/09/2023 ceFAZolin (ANCEF) 1 gram/10 mL in sterile water (premix) 1,000 mg 1 11/08/2023 docusate (COLACE) 10 mg/mL o ral liquid 100 mg 11/08/2023 lidocaine (LIDODERM) 5 % patch 2 patch oxyCODONE (ROXICODONE) tablet 7.5 mg 1 02/2024 senna 1.76 mg/mL syrup 8.8 mg 1 11/08/2023 sodium chloride 0.9% irrigation sodium chloride 0.9% solution 11/08/2023 tamsulosin (FLOMAX) extended release capsule 0.4 mg 1 11/08/2023 thrombin-recombinant 5,000 u nit topical solution 1 11/08/2023 acetaminophen (TYLENOL) tablet 1,000 mg 1 0 11/07/2023 Lab Orders Without Results Count Last Ordered D ate First Ordered Date POCT GLUCOSE DEVICE 12 11/16/2023 11/09/19 24 Diet Count Last Ordered Date First Orde red Date ADULT DISCHARGE DIET 1 11/16/2023 Nursing Count Last Ordered Date First Orde red Date DISCHARGE ACTIVITY 5 11/16/2023 DISCHARGE CALL PROVIDER 2 11/16/2023 DISCHARGE DRESSING 3 11/16/2023 DISCHARGE INSTRUCTIONS 3 11/16/2023 NURSING COMMUNICATION 2 11/09/2023 SKIN PREP 1 11/09/2023 VITAL SIGNS 1 11/09/2023 VOID FAMILY NURSE TO OR 1 11/09/2023 WOUND CARE 1 11/09/2023 BLADDER SCAN 1 11/07/2023 MEASURE POST VOID RESIDUAL 1 11/07/2023 Consult Count Last Ordered Date First Orde red Date IP CONSULT TO PAIN MANAGEMENT 1 11/12/2023 IP CONSULT TO SPIRITUAL CARE 2 11/12/2023 CONSULT TO PM&R PHYSICIAN 1 11/11/2023 IP CONSULT TO VASCULAR ACCESS TEAM 1 2023 IP CONSULT TO HEMATOLOGY 1 11/08/2023 IP CONSULT TO SOCIAL WORK 1 11/08/2023 IP CONSULT TO ORTHO SPINE 1 11/07/2023 Admission Count Last Ordered Date First Orde red Date ADMIT TO INPATIENT 1 11/07/2023 Transfer Count Last Ordered Date First Orde red Date TRANSFER PATIENT TO NEW UNIT 2 11/12/2023 11/09/2023 Discharge Count Last Ordered Date First Orde red Date DISCHARGE PATIENT 1 11/16/2023 CORE MEASURES Count Last Ordered Date First Ord ered Date REASON FOR NO VTE PROPHYLAXIS AT ADMISSION 1 11/08/2023 Case Request Count Last Ordered Date First Orde red Date CASE REQUEST OPERATING ROOM 1 11/08/2023 ADT Patient Update Count Last Ordered Date Firs t Ordered Date PROVIDER TREATMENT TEAM 1 11/08/2023 documented in this encounter Care Teams Electrical Laboratory Technician Relationship Specialty Start Date End Date Rl Medina DO [address] [place] [address] PCP - General 08/09/17 05/25/24 Marlen Gray, RN [address] [address] [facility] Outpatient Manager Molecular 10/31/23 11/15/23 documented as of this encounter
--- OUTSIDE RECORDS SUMMARY | 2024-11-05 19:22 | XMS_ITS | Encounter Summary ---
Author Organization [facility] Address [address] [place] [address] Phone Care Team Providers Care Relocation Counselor Name Role Phone Rl Medina DO Primary Care Provider Marlen Gray RN Unavailable [phone] Encounter Details Date Type Department Care Team (Late st Contact Info) Description 11/12/2023 Telephone [facility] Cardiology [address] [facility] [address]th [place] [address] [place] [address] Saige Napoles Social History Tobacco Use Types Packs/Day Years Used Date Smoking Tobacco: Former Cigarettes 1 11 0 11/05/1968 - 11/05/1979 Passive Smoke Exposure: Past Smokeless Tobacco: Never Alcohol Use Standard Drinks/Week Comments Yes 14 (1 standard drink = 0.6 oz pu re alcohol) social [facility] Utilities Answer Date Recorded In the past 12 months has [employer], gas, oil, or water [employer] threatened to shut off services in [...] 11/30/2023 How often do you attend [facility] or [facility] services? Never 11/30/2023 Do you [...] slept in a assisted (including now)? 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 no TYPE OF CONSULT: general CALLER'S NAME: JOEL NICOLASA CALLER'S PAGER: [phone] PATIENT'S NAME: Hira Evans : 1950 CAMPUS: [facility] PATIENT'S LOCATION: [address] [place] [address] REASON FOR CONSULT: OTHER CARDIAC ARREST S/P L4 AND L5 POSTERIOR SPINAL FUSION AND DECOMPRESSION [employer] ATTENDING PHYSICIAN: DR CAPELLAN O OPERATOR documented in this encounter Plan of Treatment Not on file documented as of this encounter Visit Diagnoses Not on filedocumented in this encounter Care Teams Relocation Counselor Relationship Specialty Start Date End Date Rl Medina DO [address] [place] [address] PCP - General 08/09/17 05/25/24 Marlen Gray RN [address] [facility] [address] [place] [address] [facility] Outpatient On Call Pharmacy Technician 10/31/23 11/15/23 documented as of this encounter
--- OUTSIDE RECORDS SUMMARY | 2024-11-05 19:22 | XMS_ITS | Encounter Summary ---
Author Organization [facility] Address [address] [place] [address] Phone Care Team Providers Care Roller Mill Tender Name Role Phone Rl Medina DO Primary Care Provider [phone] Marlen Gray RN Unavailable [phone] Encounter Details Date Type Department Care Team (Late st Contact Info) Description 11/08/2023 1:00 PM MANUFACTURING COST ESTIMATOR Ancillary Procedure [facility] IP [address] [facility] [address] [place] [address] Social History Tobacco Use Types Packs/Day Years Used Date Smoking Tobacco: Former Cigarettes 1 11 0 11/05/1968 - 11/05/1979 Passive Smoke Exposure: Past Smokeless Tobacco: Never Alcohol Use Standard Drinks/Week Comments Yes 14 (1 standard drink = 0.6 oz pu re alcohol) social [facility] Utilities Answer Date Recorded In the past 12 months has [employer], gas, oil, or water [employer] threatened to shut off services in your home? No 10/31/2023 Social Connection and Isolat ion Panel [NHANES] Answer Date Recorded In a typical week, how many times do you talk on the phone with family, friends, or neighbors? More than three times a week 10/31/2023 How often do you get togethe r with friends or relatives? More than three times a week 10/31/2023 How often do you attend [facility] or jainism services? Never 10/31/2023 Do you belong to any clubs o r organizations such as catholic groups, unions, fraternal or athletic groups, or school groups? No 10/31/2023 How often do you attend meet ings of the clubs or organizations you belong to? Never 10/31/2023 Are you , , di vorced, , never , or living with a partner? 10/31/2023 AUDIT-C Answer Date Recorded Q1: How often [...] care, and heating? Not hard at all 10/31/2023 Hunger Vital Sign Answer Date Recorded Within the past 12 months, y ou worried that your food would run out before you got the money to buy more. Never true 10/31/20 23 Within the past 12 months, t he food you bought just didn't last and you didn't have money to get more. Never true 10/31/2023 PRAPARE - Transportation Answer Date Re corded In the past 12 months, has l ack of transportation kept you from medical appointments or from getting medications? No 10/06 In the past 12 months, has l ack of transportation kept you from meetings, work, or from getting things needed for daily living? No 10/31/2023 Housing Stability Vital Sign Answer Shalom e Recorded In the last 12 months, was t here a time when you were not able to pay the mortgage or rent on time? No 10/31/2023 In the last 12 months, how many places have you lived? 1 10/31/2023 In the last 12 months, was t here a time when you did not have a steady place to sleep or slept in a half-way (including now)? 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 Not on file Not on file documented as of this encounter Plan of Treatment Not on file documented as of this encounter Procedures Procedure Name Priority Date/Time Associated Diagnosis Comments US VEIN DUPLEX LOWER EXTREMITY BILATERAL COMPLETE ED Urgent/IP Urgent 11/08/2023 3:07 PM MANUFACTURING COST ESTIMATOR documented in this encounter Results * US Vein Duplex Lower Extremity Bilateral Complete (11/08/2023 3:07 PM MANUFACTURING COST ESTIMATOR) Anatomical Region Laterality Modality Vascular Bilateral Ultrasound 11/08/2023 2:22 PM MANUFACTURING COST ESTIMATOR Narrative 11/09/2023 1:26 AM MANUFACTURING COST ESTIMATOR [facility] - Department of Vascular Surgery, Vascular Laboratory [address] [place] [address] Lower Extremity Venous Ultrasound Report Patient Name: HIRA EVANS WILLIAM : 1950 (73y 4m) Study Date: 11/08/2023 2:22:46 PM Gender: M Tech: MI Location: [id number] Ref Provider: VICKI REHMAN ?Quality: Adequate Order [...] INDICATIONS: recent bilateral PE - FINDINGS: Performing Metal Mixer: Nola Walker RVT, RDMS. Bilateral: Venous Doppler [...] By: Shayan Jameson MD FACS 2023-11-09 01:25:55 MANUFACTURING COST ESTIMATOR Procedure Note Shayan Jameson MD - 11/09/2023 [facility] - Department of Vascular Surgery,Vascular Laboratory [address] [place] [address] Lower Extremity Venous Ultrasound Report Patient Name: HIRA EVANS WILLIAM : 1950 (73y 4m) Study Date: 11/08/2023 2:22:46 PM Gender: M Tech: MI Location: [id number] Ref Provider: VICKI REHMAN Quality: Adequate Order Provider: VICKI REHMAN PROCEDURES: Vascular Report: Venous Duplex imaging was performed bilaterally in the lower extremities.The common femoral, femoral, popliteal, posterior tibial, peroneal veins wereevaluated for patency, spontaneity and phasicity with Doppler, compression and augmentationmaneuvers. Great saphenous vein proximal at the junction was evaluated with compressionmaneuvers. INDICATIONS: recent bilateral PE - FINDINGS: Performing Metal Mixer: Nola Walker RVT, CASTILLO. Bilateral: Venous Doppler [...] above. Electronically Signed By: Shayan Jameson MD [facility] 2023-11-09 01:25:55 MANUFACTURING COST ESTIMATOR us Vicki Rehman STILL WORKER HELPER IMG US PROCEDURES Fide l Result documented in this encounter Visit Diagnoses Not on filedocumented in this encounter Care Teams Roller Mill Tender Relationship Specialty Start Date End Date Rl Medina DO [address] [place] [address] PCP - General 08/09/17 05/25/24 Marlen Gray RN [address] [address] [facility] Outpatient Binding Machine Operator 10/31/23 11/15/23 documented as of this encounter
--- OUTSIDE RECORDS SUMMARY | 2024-11-05 19:22 | XMS_ITS | Encounter Summary ---
Author Organization [facility] Address [address] [place] [address] Care Team Providers Care Equalizer Operator Name Role Phone Rl Medina DO Primary Care Provider Marlen Gray RN Unavailable [phone] Encounter Details Date Type Department Care Team (Late st Contact Info) Description 11/09/2023 Orders Only [facility] Radiology [address] [place] [address] Carey Norman RN Social History Tobacco Use Types Packs/Day Years Used Date Smoking Tobacco: Former Cigarettes 1 11 0 11/05/1968 - 11/05/1979 Passive Smoke Exposure: Past Smokeless Tobacco: Never Alcohol Use Standard Drinks/Week Comments Yes 14 (1 standard drink = 0.6 oz pu re alcohol) social [facility] Utilities Answer Date Recorded In the past 12 months has [employer], gas, oil, or water [employer] threatened to shut off services in your [...] 11/10/2023 How often do you attend chur or shinto services? Never 11/10/2023 Do you belong to [...] slept in a [facility] (including now)? 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
--- OUTSIDE RECORDS SUMMARY | 2024-11-05 19:22 | XMS_ITS | Encounter Summary ---
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 Name Role Phone Rl Medina DO Primary Care Provider Marlen Gray RN Unavailable Reason for Visit * Auth/Cert (Routine) Specialty Diagnoses / Procedures Referred By Contac t Referred To Contact Diagnoses Paralysis of both lower limbs (CMS/HCC) (HCC) numbness and weakness post spinal surgery Procedures NA Referral ID Status Reason Start Date Expiration Date Visits Re quested Visits Authorized [id number] 1 1 Encounter Details Date Type Department Care Team (Late st Contact Info) Description 11/08/2023 2:55 AM [employer] Anesthesia Event [facility] Operating Room [address] [place] [address] Hood Kim MD [address] [place] [address] Torey Murray MD PhD [address] [place] [address] Anesthesia Record Procedure Summary Procedure Name Responsible Anesthesiologist Anesthesia Start Time Anesthesia Stop Time LAMINECTOMY THORACIC DECOMPRESSION (Spine Lumbar) Hood Kim MD 11/08/23 0255 11/08/23 1137 Events Date Time Event Comment 11/08/2023 0229 Re-ice blood 0255 An Start 0258 In Room 0301 An Start Data 0306 An Induction The patient was reevaluated immediately before moderate or deep sedation use and before anesthesia induction. 0308 An Intubation 0324 Line Placement Right radial arterial line 0329 Anesthesia Ready 0330 Quick Note vanc 0346 Quick Note Right radial ar tristan A-line very positional, with constant dampening, even with arm board. Deemed unreliable to measure blood pressure for entirety of case. Successfully rewired twice (first time with Vygon, second time with Jelco), but both attempts unable to have sustained improvement in A-line waveform. Decision was made to place a second arterial line in right dorsalis pedis, which produced a much more reliable waveform. 0349 Line Placement R dorsalis pe dis arterial line 0421 Patient Positioned Prone Lori ath sounds confirmed to be present, bilateral, and equal after prone positioning. 0435 Quick Note Patient in pron e; eyes/ears clear and without pressure; head supported in tongs with weights; bilateral upper extremities in less than 90 degrees abduction with all PPP 0450 0457 Proc Start 0457 Incision Start 0459 Quick Note Under and upper lucian huggers on 0559 Quick Note Lost motors hipolito ateral LE. Giving another unit of blood per surgeon request. Augmenting MAPs > 90. Sending blood gas. 0959 Quick Note Per surgeon, POONAM P goal >80mmHg 1100 Proc Fin 1121 Out of Room 1137 Handoff to RN I completed my handoff [...] Patient disposition at the time of handoff: No value filed. 1137 An Stop Meds Name Total propofol 390 mg propofol 3,403.13 mg fentaNYL 495.42 mcg phenylephrine 1 mg/10 mL syringe (100 mc g/mL) 900 mcg phenylephrine 100 mcg/mL 10.81 mg succinylcholine 60 mg fentaNYL bolus (2 mL syringe) 500 mcg vancomycin 1,500 mg lidocaine (cardiac) syringe 2 % 100 mg ceFAZolin 4,000 mg dexAMETHasone 4 mg/mL 4 mg calcium chloride 0.5 g insulin regular 1 Units HYDROmorphone 2 mg/mL 0.8 mg ondansetron PF (ZOFRAN) 2 mg/mL injectio n 4 mg LR 0 mL NS 0.9% 3,000 mL * Agents Name O2% N2O O2 N2O Air * Blood Name Total PRBC - CROSSMATCHED 950 mL FFP - CROSSMATCHED 150 mL Lines, Drains, and Airways Type Details Placement Removal RETIRED Surgical Site 10/23/23; 1748; Ba ck; 12/26/23 10/23/23 1748 by Yeni Walker RN 12/26/23 0000 by Kishan Hanson RN Closed/Suction/Open Drain 10/23/23; 2047; No; 1; Right; Back; Bulb; 10 Fr.; Removal date unknown/not present on admission 10/23/232047 by Rena Michelle RN 11/08/23 025 by Silver Chow RN RETIRED Wound 10/27/23; 0900; No; Rash; Posterior; Buttocks; redness to buttocks; 12/26/23 10/27/23 0900 by Donna Brooks RN 12/26/23 0000 by Kishan Hanson RN RETIRED Wound 10/27/23; 0900; No; Rash; Other (Comment) (Generalized); Generalized; red blotchy blanchable rash; 12/26/23 10/27/23 0900 by Donna Brooks RN 12/26/23 0000 by Kishan Hanson RN Peripheral IV Placement Date: 11/07/23; Placement Time: 2200; Existing LDA Placed by: Other hospital; Catheter Size: 20 G; Orientation: Left; Location: Antecubital; Patient Tolerance: Tolerated well; Removal Date: 11/08/23; Removal Time: 1730 11/07/23 2200 by Jessenia Fox, NARENDRA 11/08/23 1730 by Eula Coffey RN Peripheral IV Placement Date: 11/08/23; Catheter Size: 20 G; Orientation: Left; Location: Forearm; Inserted by: Johnie; Insertion Attempts: 1; Patient Tolerance: Tolerated well; Removal Date: 11/11/23; Removal Time: 1700 11/08/23 0000 by Johnie Arredondo RN 11/11/23 1700 by Melissa Eddy RN Urethral Catheter Placement Date: 11/08/23; Placement Time: 0400; Inserted by: José Miguel Dunlap RN; Type: Straight-tip, Temperature probe; Balloon Size: 10 mL; Urine Returned: Yes; Removal Date: 11/09/23; Removal Time: 1050; Removal Reason: Per order 11/08/23 0400 by Aranza Mariano RN 11/09/23 1050 by Lucio Gaines RN ETT Placement Date: 11/08/23; Placement Time: 0403 (created via procedure documentation); Mask Ventilation: 1; Technique: Video laryngoscopy; Type: ETT - single; Single Lumen Tube Size: 8 mm; Cuffed: Yes; Laryngoscope: Bennett; Blade Size: 4; Location: Oral; Insertion Attempts: 1; Placement Verification: Auscultation, Capnometry; Removal Date: 11/08/23; Removal Time: 1100 11/08/23 0403 by Tobias Rivas MD 11/08/23 1100 by Hannah Jeffery Arterial Line Placement Date: 11/08/23; Placemnt Time: 0404 (created via procedure documentation); Size: 20 G; Orientation: Right; Location: Radial; Securement: Taped, Transparent dressing; Removal Date: 11/08/23; Removal Time: 1000 11/08/23 0404 by Tobias Rivas MD 11/08/23 1000 by Hannah Jeffery Arterial Line Placement Date: 11/08/23; Placemnt Time: 0405 (created via procedure documentation); Size: 20 G; Orientation: Right; Location: Dorsalis pedis; Securement: Taped, Transparent dressing; Removal Date: 11/08/23; Removal Time: 1417 11/08/23 0405 by Tobias Rivas MD 11/08/23 1417 by Hannah Jeffery Peripheral IV Placement Date: 11/08/23; Placement Time: 0406 (created via procedure documentation); Catheter Size: 16 G; Orientation: Left; Location: Wrist; Site Prep: Alcohol, Chlorhexidine; Insertion Attempts: 1; Removal Date: 11/11/23; Removal Time: 1400; Removal Reason: Infiltrated 11/08/23 0406 by Tobias Rivas MD 11/11/23 1400 by Melissa Eddy RN Peripheral IV Placement Date: 11/08/23; Placement Time: 406 (created via procedure documentation); Catheter Size: 16 G; Orientation: Right; Location: Wrist; Site Prep: Alcohol, Chlorhexidine; Insertion Attempts: 1; Removal Date: 11/08/23; Removal Time: 1416 11/08/23 0407 by Tobias Rivas MD 11/08/23 1416 by Hannah Jeffery Closed/Suction/Open Drain 11/08/23; 0940; 1; Right; Back; Other (Comment) (bile bag); (10mm flat); 1; Therapy complete 11/08/23 0940 by Silver Chow RN 11/12/23 1200 by Deisy Neal RN Closed/Suction/Open Drain 11/08/23; 0940; 2; Right; Back; (bile bag); (10mm flat); 1; Therapy complete 11/08/23 0940 by Silver Chow RN 11/12/23 1200 by Deisy Neal RN RETIRED Negative Pressure Wound Therapy 11/08/23; 1040; Dr. Vu; Surgical incision; Mid-line; Back; 11/15/23; 1500 11/08/23 1040 by Silver Chow RN 11/15/23 1500 by Radha Hancock RN documented in this encounter Social History Tobacco Use Types Packs/Day Years Used Date Smoking Tobacco: Former Cigarettes 1 11 0 11/05/1968 - 11/05/1979 Passive Smoke Exposure: Past Smokeless Tobacco: Never Alcohol Use Standard Drinks/Week Comments Yes 14 (1 standard drink = 0.6 oz pu re alcohol) social [email or web address] Utilities Answer Date Recorded In the past 12 months has [employer] oil, or water [employer] threatened to shut off services in your [...] often do you attend chur ch or roman catholic services? Never 11/10/2023 Do you belong to any clubs o r organizations such as alevism groups, unions, fraternal or athletic groups, or [...] in a nursing home (including now)? No 11/10/2023 Personal Safety Answer Date Recorded Getting School Help Needed Denies 10/15 Sex and Gender Information Value Date Recorded Sex Assigned at Not on file 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 [employer] Gender Identity Not on file Sexual Orientation Not on file Occupation Industry Job Start Date Job End Date [employer] Not on file Not on file Not on file documented as of this encounter OR Notes * Anesthesia Postprocedure Evaluation - Hood Kim MD - 11/08/2023 11:37 AM CST Patient: Hira Evans Procedure Summary Date: 11/08/23 Room / Location: [facility] OR POD 5 ROOM 235 / [facility] OR POD 5 Anesthesia Start: 0255 Anesthesia Stop: 1136 Procedures: LAMINECTOMY THORACIC DECOMPRESSION (Spine Lumbar) LAMINECTOMY LUMBAR - POSTERIOR (Spine Lumbar) SPINAL CORD MONITORING REPAIR DURAL TEAR (Spine Lumbar) Diagnosis: Paralysis of both lower limbs (CMS/HCC) (HCC) (Paralysis of both lower limbs (CMS/HCC) (HCC) [G82.20]) Surgeons: Marcial Vu MD Responsible Provider: Hood Kim MD Anesthesia Type: general ASA Status: 4 - Emergent Anesthesia Type: general Last vitals BP 137/81 Pulse 82 Temp 36.4 ??C (97.6 ??F) Resp 16 SpO2 98% Anesthesia Post Evaluation Patient location during evaluation: ICU Patient participation: complete - patient participated 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 [employer] * Anesthesia Preprocedure Evaluation - Edmond Barker MD - 11/08/2023 4:50 AM CST Images from the original note were not included. Anesthesia Evaluation Hira Evans is a 73 y.o. 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 Last Dose Start Date End Date Provider acyclovir (ZOVIRAX) 400 mg tablet -- 06/08/19 -- Fidelia Perdue MD cephalexin (KEFLEX) 500 mg capsule -- 10/09/22 -- Fidelia Perdue MD cetirizine (ZyrTEC) 10 mg tablet -- -- -- Fidelia Perdue MD cholecalciferol (VITAMIN D-3) 5,000 unit capsule -- -- -- Fidelia Perdue MD coenzyme Q10 100 mg capsule -- -- -- Fidelia Perdue MD cyclobenzaprine (FLEXERIL) 5 mg tablet -- 10/30/23 -- Rafael Rodriguez NP Take 1 tablet (5 mg total) by mouth 3 (three) times a day as needed for muscle spasms DILT-XR 240 mg 24 hr capsule -- 05/12/19 -- Fidelia Perdue MD enoxaparin (LOVENOX) 80 mg/0.8 mL syringe -- 10/30/23 01/28/24 Rafael Rodriguez NP Inject 0.8 mL (80 mg total) under the skin every 12 (twelve) hours fish,bora,flax oils-om3,6,9no1 400-400-400 mg capsule -- -- -- Fidelia Perdue MD gabapentin (NEURONTIN) 300 mg capsule -- 10/30/23 11/29/23 Rafael Rodriguez NP Take 1 capsule (300 mg total) by mouth every 8 (eight) hours irbesartan (AVAPRO) 300 mg tablet -- 08/10/21 -- Fidelia Perdue MD ketorolac (TORADOL) 10 mg tablet -- 11/06/23 -- Marcial Vu MD Take 1 tablet (10 mg total) by mouth every 6 (six) hours as needed for pain levETIRAcetam (KEPPRA) 1,000 mg tablet -- 10/30/23 12/29/23 Rafael Rodriguez NP Take 1 tablet (1,000 mg total) by mouth 2 (two) times a day Mounjaro 10 mg/0.5 mL pen injector -- 04/05/23 -- Fidelia Perdue MD omeprazole (PriLOSEC) 20 mg capsule -- -- -- Fidelia Perdue MD oxyCODONE (ROXICODONE) 5 mg immediate release tablet -- 10/30/23 -- Nasir Manzanares MD Take 1 tablet (5 mg total) by mouth every 4 (four) hours as needed for pain senna-docusate (PERICOLACE) 8.6-50 mg -- 10/30/23 11/14/23 Rafael Rodriguez, CARLA Take 1 tablet by mouth 2 (two) times a day for 15 days tamsulosin (FLOMAX) 0.4 mg extended release capsule -- 10/30/23 11/29/23 Rafael Rodriguez, CARLA Take 2 capsules (0.8 mg total) by mouth daily with dinner Current Facility-Administered Medications: [MAR Hold] acetaminophen (TYLENOL) tablet 1,000 mg, 1,000 mg, oral, Q6H PRN sodium chloride 0.9% irrigation, , , PRN, 1,000 mL at 11/08/23 0401 thrombin-recombinant 5,000 unit topical solution, , , PRN, 5,000 Units at 11/08/23 0357 Facility-Administered Medications Ordered in Other Encounters: ceFAZolin (ANCEF) injection, , intravenous, PRN, 2,000 mg at 11/08/23 0436 fentaNYL (SUBLIMAZE) preservative free injection, , intravenous, Continuous PRN, Last Rate: 3.544 mL/hr at 11/08/23 0306, 2 mcg/kg/hr at 11/08/23 0306 fentaNYL (SUBLIMAZE) preservative free syringe, , intravenous, PRN, 100 mcg at 11/08/23 0329 Lactated Ringer's (LR) infusion, , intravenous, Continuous PRN, New Bag at 11/08/23 0300 lidocaine (cardiac) (XYLOCAINE) preservative free injection, , intravenous, PRN, 100 mg at 306 phenylephrine (ARIELLE-SYNEPHRINE) 1 mg/10 mL (100 mcg/mL) in sodium chloride 0.9% (premix), , intravenous, Continuous PRN, Last Rate: 26.58 mL/hr at 11/08/23 0333, 0.5 mcg/kg/min at 11/08/23 0333 propofoL (DIPRIVAN) 10 mg/mL IV, , intravenous, PRN, 40 mg at 11/08/23 0359 propofoL (DIPRIVAN) 10 mg/mL IV, , intravenous, Continuous PRN, Last Rate: 63.792 mL/hr at 438, 120 mcg/kg/min at 11/08/23 0438 sodium chloride 0.9% infusion, , intravenous, Continuous PRN, New Bag at 11/08/23 0329 succinylcholine (ANECTINE) injection, , intravenous, PRN, 60 mg at 11/08/23 0308 vancomycin (VANCOCIN) solution, , intravenous, PRN, 1,500 mg at 11/08/23 0330 Social History Tobacco Use Smoking Status Former Packs/day: 1.00 Years: 8.00 Additional pack years: 0.00 Total pack years: 8.00 Types: Cigarettes Start date: 11/05/1968 Quit date: 11/05/1979 Years since quittin.0 Passive exposure: Past Smokeless Tobacco Never Alcohol Use: Not At Risk (10/23/2023) AUDIT-C Frequency of Alcohol Consumption: 4 or more times a week Average Number of Drinks: 1 or 2 Frequency of Binge Drinking: Never Substance and Sexual Activity Drug Use Yes Frequency: 7.0 times per week Types: Medical marijuana Comment: MJ = edibles daily for pain; Alcohol = 2 glasses of wine per evening Family History Problem Relation Age of Onset Heart disease Mother Lung disease Mother Alcohol abuse Father Cancer Father Heart disease Other Family history of cardiac disorder - (Added by TW Conv) Cancer Other Family history of malignant neoplasm - (Added by TW Conv) Anesthesia problems Neg Hx Vitals: 11/07/23 2155 11/07/23 2200 11/07/23 2215 BP: 134/99 137/88 137/81 Pulse: 88 86 82 Resp: 19 21 16 Temp: SpO2: 94% 100% 98% PT: 11/07/2023: 12.6 sec INR: 11/07/2023: 1.11 APTT: 11/07/2023: 32 sec Hgb A1C: No results found for requested labs within last 30 days. CBC RBC: 11/07/2023: 3.08 M/cumm (L) RDW: No results found for requested labs within last 30 days. MCHC: 11/07/2023: 32.8 g/dL MCH: 11/07/2023: 30.8 pg MCV: 11/07/2023: 94.2 fL Hct: 11/08/2023: 26.0 % (L) Hgb: 11/08/2023: 8.6 g/dL (L) WBC: 11/07/2023: 12.0 K/cumm (H) MPV: 11/07/2023: 10.9 fL Platelets: 11/07/2023: 343 K/cumm RDW CV: 11/07/2023: 13.7 % RDW Sd: 11/07/2023: 46.8 fL BMP Glucose: 11/08/2023: 123 mg/dL Calcium: 11/07/2023: 8.6 mg/dL Sodium: 11/07/2023: 141 mmol/L Potassium: 11/07/2023: 4.2 mmol/L CO2: 11/07/2023: 28 mmol/L Chloride: 11/07/2023: 104 mmol/L BUN: 11/07/2023: 14 mg/dL Creatinine: 11/07/2023: 0.98 mg/dL DOS Physical Exam Medical history, medications, and allergies reviewed. Attestation: This PAT evaluation 11/08/2023. Airway Exam: Mallampati: III Cervical ROM: FROM TM distance: 3 Cardiovascular Exam: Rate: regular Rhythm: regular Pulmonary Exam: LCTA, bilat EENT Exam: trachea midline Current state: Patient's current state is cooperative. 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 Induction: Induction: intravenous. Postoperative Plan: Postoperative administration opioids intended. Informed Consent: Discussed plan with resident. Anesthesia plan and risks discussed with patient. Plan and Consent Comments: GA risks discussed including risk of perioperative GA, CVA, cardiac arrest as well as prone risks including edema (facial/scleral) as well as POVL risk; arterial line and additional PIV access planned Consent and Attending signature: I and/or my designee have discussed the anesthesia plan, benefits, possible alternatives, parental presence at time of induction (if indicated), and clinically relevant risks that may include dental injury, unintentional awareness, and/or other complications. The patient and/or parent/legal guardian understand, and agree to proceed. All questions answered. [employer] * Anesthesia Procedure Notes - Tobias Rivas MD - 11/08/2023 4:06 AM [employer] Associated Order(s): Peripheral IV Catheter Peripheral IV Catheter Patient location: OR Staff: Supervising provider: Edmond Barker MD Placed by: Resident: Javad Morales MD Preprocedure prep: Prep solution: alcohol and chlorhexadine PPE: gloves and provider hat/mask PIV line: Laterality: right Site: wrist Catheter size: 16 g Technique: direct visualization Procedure details: good blood return and occlusive dressing applied Number of attempts: 1 Assessment: Events: patient tolerated procedure well with no complications [employer] * Anesthesia Procedure Notes - Tobias Rivas MD - 11/08/2023 4:05 AM [employer] Associated Order(s): Peripheral IV Catheter Peripheral IV Catheter Patient location: OR Staff: Supervising provider: Edmond Barker MD Placed by: Resident: Javad Morales MD Preprocedure prep: Prep solution: alcohol and chlorhexadine PPE: gloves and provider hat/mask PIV line: Laterality: left Site: wrist Catheter size: 16 g Technique: direct visualization Procedure details: good blood return and occlusive dressing applied Number of attempts: 1 Assessment: Events: patient tolerated procedure well with no complications 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 [employer] * Anesthesia Procedure Notes - Tobias Rivas MD - 11/08/2023 4:04 AM [employer] Associated Order(s): Arterial Line Arterial Line Patient location: OR Indication: continuous blood pressure monitoring and blood sampling needed Ultrasound assisted: yes Staff: Supervising provider: Edmond Barker MD Placed by: Resident: Javad Morales MD Procedure prep: Prep solution: chlorhexadine/alcohol Prep: provider hat/mask and sterile gloves Arterial line: Catheter size: 20 gauge Catheter length: 1 and 3/4 inch Catheter type: wire-guided catheter Laterality: right Site: dorsalis pedis artery Line secured: Tegaderm and tape Results: good waveform and good blood return Number of attempts: 1 Assessment: Events: patient tolerated procedure well with no complications WORK[employer] * Anesthesia Procedure Notes - Tobias Rivas MD - 11/08/2023 4:03 AM [employer] Associated Order(s): Arterial Line Arterial Line Patient location: OR Indication: continuous blood pressure monitoring and blood sampling needed Staff: Placed by: Anesthesiologist: Edmond Barker MD Procedure prep: Prep solution: chlorhexadine/alcohol Prep: provider hat/mask and sterile gloves Arterial line: Catheter size: 20 gauge Catheter length: 1 and 3/4 inch Catheter type: wire-guided catheter Seldinger technique: yes Laterality: right Site: radial artery Line secured: Tegaderm and tape Results: good waveform and good blood return Number of attempts: 1 Assessment: Events: patient tolerated procedure well with no complications WORK[employer] * Anesthesia Procedure Notes - Tobias Rivas MD - 11/08/2023 4:02 AM [employer] Associated Order(s): Airway Airway Patient location: OR Urgency: elective Indications for airway management: anesthesia Difficult airway: no Staff: Supervising provider: Edmond Barker MD Placed by: Resident: Tobias Rivas MD Emergent airway documentation: Risks and benefits discussed: [...] with: silk tape Number of attempts: 1 [employer] documented in this encounter Plan of Treatment Not on file documented as of this encounter Procedures Procedure Name Priority Date/Time Associated Diagnosis Comments PERIPHERAL LINE Routine 11/08/2023 4:06 AM [employer] PERIPHERAL LINE Routine 11/08/2023 4:05 AM [employer] ANESTHESIA ARTERIAL LINE PLACEMENT Routine 11/08/2023 4:04 AM [employer] ANESTHESIA ARTERIAL LINE PLACEMENT Routine 11/08/2023 4:03 AM [employer] ANESTHESIA INTUBATION Routine 11/08/2023 4:02 AM [employer] documented in this encounter Results * Peripheral IV Catheter (11/08/2023 4:06 AM [employer]) Narrative Tobias Rivas MD - 11/08/2023 4:06 AM 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 11/08/2023 ??4:07 AM Peripheral IV Catheter Patient location: OR Staff: Supervising provider: Edmond Barker MD Placed by: Resident: Javad Morales MD Preprocedure prep: Prep solution: alcohol and chlorhexadine PPE: gloves and provider hat/mask PIV line: Laterality: right Site: wrist Catheter size: 16 g Technique: direct visualization Procedure details: good blood return and occlusive dressing applied Number of attempts: 1 Assessment: Events: patient tolerated procedure well with no complications us Edmond Barker MD ANESTHESIA ORDERABLES Final Result * Peripheral IV Catheter (11/08/2023 4:05 AM [employer]) Narrative Tobias Rivas MD - 11/08/2023 4:05 AM 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 11/08/2023 ??4:07 AM Peripheral IV Catheter Patient location: OR Staff: Supervising provider: Edmond Barker MD Placed by: Resident: Javad Morales MD Preprocedure prep: Prep solution: alcohol and chlorhexadine PPE: gloves and provider hat/mask PIV line: Laterality: left Site: wrist Catheter size: 16 g Technique: direct visualization Procedure details: good blood return and occlusive dressing applied Number of attempts: 1 Assessment: Events: patient tolerated procedure well with no complications Result [facility] Edmond Barker MD ANESTHESIA ORDERABLES Edited Result - Final * Arterial Line (11/08/2023 4:04 AM [employer]) Narrative Tobias Rivas MD - 11/08/2023 4:04 AM 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 11/08/2023 ??4:05 AM Arterial Line Patient location: OR Indication: continuous blood pressure monitoring and blood sampling needed Ultrasound assisted: yes Staff: Supervising provider: Edmond Barker MD Placed by: Resident: Javad Morales MD Procedure prep: Prep solution: chlorhexadine/alcohol Prep: provider hat/mask and sterile gloves Arterial line: Catheter size: 20 gauge Catheter length: 1 and 3/4 inch Catheter type: wire-guided catheter Laterality: right Site: dorsalis pedis artery Line secured: Tegaderm and tape Results: good waveform and good blood return Number of attempts: 1 Assessment: Events: patient tolerated procedure well with no complications Result [facility] Edmond Barker MD ANESTHESIA ORDERABLES Final Result * Arterial Line (11/08/2023 4:03 AM [employer]) Narrative Tobias Rivas MD - 11/08/2023 4:03 AM 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 11/08/2023 ??4:04 AM Arterial Line Patient location: OR Indication: continuous blood pressure monitoring and blood sampling needed Staff: Placed by: Anesthesiologist: Edmond Barker MD Procedure prep: Prep solution: chlorhexadine/alcohol Prep: provider hat/mask and sterile gloves Arterial line: Catheter size: 20 gauge Catheter length: 1 and 3/4 inch Catheter type: wire-guided catheter Seldinger technique: yes Laterality: right Site: radial artery Line secured: Tegaderm and tape Results: good waveform and good blood return Number of attempts: 1 Assessment: Events: patient tolerated procedure well with no complications Edmond Barker MD ANESTHESIA ORDERABLES Final Result * Airway (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 11/08/2023 ??4:03 AM Airway Patient location: OR Urgency: elective Indications for airway management: anesthesia Difficult airway: no Staff: Supervising provider: Edmond Barker MD Placed by: Resident: Tobias Rivas MD Emergent airway documentation: Risks and benefits discussed: [...] silk tape Number of attempts: 1 us Edmond Barker MD ANESTHESIA ORDERABLES Final Result documented in this encounter Visit Diagnoses Not on filedocumented in this encounter Administered Medications Inactive Administered Medications - up to 3 most recent administrations Medication Order MAR Action Action Date Dose Rate Site calcium chloride IV syringe intravenous, As needed, Starting on Helene 11/08/23 at 0605, Anesthesia Intra-op Given 11/08/2023 6:05 AM [employer]ARMWORK[employer]OPS 0.5 g ceFAZolin (ANCEF) injection intravenous, Administer over 3 Minutes, As needed, Starting on Helene 11/08/23 at 0436, Anesthesia Intra-op Given 11/08/2023 8:29 AM [employer] 2,000 mg Given 11/08/2023 4:36 AM [employer] 2,000 mg dexAMETHasone (DECADRON) 4 mg/mL injection intravenous, Administer over 2 Minutes, As needed, Starting on Helene 11/08/23 at 0512, Anesthesia Intra-op Given 11/08/2023 5:12 AM [employer] 4 mg fentaNYL (SUBLIMAZE) preservative free injection intravenous, Continuous PRN, Starting on Helene 11/08/23 at 0306, Anesthesia Intra-op Rate/Dose Change 11/08/2023 6:26 AM [employer] 0.5 mcg/kg/hr 0.886 mL/hr Rate/Dose Change 11/08/2023 5:06 AM [employer]ARM[employer] 1 mcg/kg/hr 1.772 mL/hr New Bag 11/08/2023 3:06 AM [employer]ARMWORK[employer] 2 mcg/kg/hr 3.544 mL/hr fentaNYL (SUBLIMAZE) preservative free syringe intravenous, As needed, Starting on Helene 11/08/23 at 0306, Anesthesia Intra-op Given 11/08/2023 7:29 AM [employer] 100 mcg Given 11/08/2023 6:26 AM [employer] 100 mcg Given 11/08/2023 5:23 AM [employer] 100 mcg HYDROmorphone (DILAUDID) injection intravenous, Administer over 2 Minutes, As needed, Starting on Helene 11/08/23 at 0938, Anesthesia Intra-op Given 11/08/2023 10:31 AM [employer] 0.2 mg Given 11/08/2023 10:04 AM [employer] 0.2 mg Given 11/08/2023 9:38 AM [employer]ARM[employer] 0.4 mg insulin regular (HumuLIN R, NovoLIN R) 100 unit/mL injection intravenous, As needed, Starting on Helene 11/08/23 at 0827, Anesthesia Intra-op Given 11/08/2023 8:27 AM [employer]ARMWORK[employer] 1 Units Lactated Ringer's (LR) infusion intravenous, Continuous PRN, Starting on Helene 11/08/23 at 0300, Anesthesia Intra-op Rate/Dose Change 11/08/2023 8:03 AM FARMWORKER [employer] CROPS 50 mL/hr New Bag 11/08/2023 3:00 AM [employer]ARMWORK[employer]OPS 75 mL/hr lidocaine (cardiac) (XYLOCAINE) preservative free injection intravenous, As needed, Starting on Helene 11/08/23 at 0306, Anesthesia Intra-op, Indications: Ventricular ArrhythmiasIndications:V entricular Arrhythmias Given 11/08/2023 3:06 AM [employer]ARMWORK[employer]OPS 100 mg ondansetron (ZOFRAN) injection intravenous, Administer over 2 Minutes, As needed, Starting on Helene 11/08/23 at 1019, Anesthesia Intra-op Given 11/08/2023 10:19 AM [employer]ARM[employer] 4 mg phenylephrine (ARIELLE-SYNEPHRINE) 1 mg/10 mL (100 mcg/mL) in sodium chloride 0.9% (premix) intravenous, Continuous PRN, Starting on Helene 11/08/23 at 0333, Anesthesia Intra-op Rate/Dose Change 11/08/2023 9:41 AM [employer]ARMWORK[employer]OPS 0.3 mcg/kg/min 15.948 mL/hr Rate/Dose Change 11/08/2023 9:13 AM [employer] 0.4 mcg/kg/min 21. 264 mL/hr Rate/Dose Change 11/08/2023 8:01 AM [employer]ARM[employer] 0.2 mcg/kg/min 10. 632 mL/hr phenylephrine (ARIELLE-SYNEPHRINE) 1 mg/10 mL (100 mcg/mL) in sodium chloride 0.9% (premix) intravenous, As needed, Starting on Helene 11/08/23 at 0332, Anesthesia Intra-op Given 11/08/2023 9:11 AM [employer]ARM[employer] 200 mcg Given 11/08/2023 7:42 AM [employer]ARM[employer] 100 mcg Given 11/08/2023 7:14 AM [employer] 100 mcg propofoL (DIPRIVAN) 10 mg/mL IV intravenous, As needed, Starting on Helene 11/08/23 at 0307, Anesthesia Intra-op Bolus 11/08/2023 10:44 AM [employer] 40 mg Bolus 11/08/2023 10:38 AM [employer]ARM[employer] 20 mg Bolus 11/08/2023 10:30 AM FARMWORK[employer] 20 mg propofoL (DIPRIVAN) 10 mg/mL IV intravenous, Continuous PRN, Starting on Helene 11/08/23 at 0315, Anesthesia Intra-op Rate/Dose Change 11/08/2023 10:00 AM [employer]ARM[employer] 40 mcg/kg/min 21.264 mL/hr Rate/Dose Change 11/08/2023 9:25 AM [employer]ARM[employer] 50 mcg/kg/min 26.5 8 mL/hr Rate/Dose Change 11/08/2023 8:19 AM [employer]ARMWORK[employer] 70 mcg/kg/min 37.2 12 mL/hr sodium chloride 0.9% infusion intravenous, Continuous PRN, Starting on Helene 11/08/23 at 0329, Anesthesia Intra-op New Bag 11/08/2023 3:29 AM [employer]ARMWORK[employer]OPS succinylcholine (ANECTINE) injection intravenous, As needed, Starting on Helene 11/08/23 at 0308, Anesthesia Intra-op Given 11/08/2023 3:08 AM [employer]ARM[employer] 60 mg Transfuse plasma Timed New Bag 11/08/2023 9:32 AM [employer]OPS Transfuse RBC Timed New Bag 11/08/2023 4:52 AM [employer]OPS Transfuse RBC Timed New Bag 11/08/2023 5:58 AM [employer]OPS Transfuse RBC Timed New Bag 11/08/2023 7:36 AM [employer]OPS vancomycin (VANCOCIN) solution intravenous, As needed, Starting on Helene 11/08/23 at 0330, Anesthesia Intra-op Given 11/08/2023 3:30 AM [employer] 1,500 mg documented in this encounter Care Teams Linux Unix Administrator Relationship Specialty Start Date End Date Rl Medina DO [address] [place] [address] PCP - General 08/09/17 05/25/24 Marlen Gray, RN [address] [address] SHOP Outpatient Superintendent Operating 10/31/23 11/15/23 documented as of this encounter
--- OUTSIDE RECORDS SUMMARY | 2024-11-05 19:22 | XMS_ITS | Encounter Summary ---
Author Organization [facility] Address [address] [facility] [address] [place] [address] Phone Care Team Providers Care Mud Boss Name Role Phone Rl Medina DO Primary Care Provider [phone] Reason for Referral * Consultation (Routine) - Closed Specialty Diagnoses / Procedures Referred By Manisha gale Referred To Contact Hematology Diagnoses Hospital discharge follow-up Rae Weller NP [address] [place] [address] Phone: tel: fax: Tigre Way MD [address] [place] [address] Phone: tel: fax: Referral ID Status Reason Start Date Expiration Date V isits Requested Visits Authorized [id number] Closed Specialty Services Required 11/16/2023 11/04/2024 99 99 Question Answer Please select the performing region: [facility] (All Locations) [[id number]] Please select the performing department: [facility] [[id number]] To provider: TIGRE WAY [[id number]] # of visits: 1 Comments Hospital discharge f/u with Dr Way in about 2-3wks OR TELECOMMUNICATIONS ENGINEER Encounter Details Date Type Department Care Team (Late st Contact Info) Description 11/16/2023 Orders Only [facility] Hematology [address] [facility] 7th [place] [address] [place] [address] Rae Weller, CARLA [address] [place] [address] Hospital discharge follow-up (Primary Dx) Social History Tobacco Use Types Packs/Day Years Used Date Smoking Tobacco: Former Cigarettes 1 11 0 11/05/1968 - 11/05/1979 Passive Smoke Exposure: Past Smokeless Tobacco: Never Alcohol Use Standard Drinks/Week Comments Yes 14 (1 standard drink = 0.6 oz pu re alcohol) social [facility] Utilities Answer Date Recorded In [...] chur ch or latter day services? 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
--- OUTSIDE RECORDS SUMMARY | 2024-11-05 19:22 | XMS_ITS | Encounter Summary ---
Author Organization [facility] Address [address] [place] [address] Phone Care Team Providers Care Mandolin Repair Person Name Role Phone Rl Medina DO Primary Care Provider Encounter Details Date Type Department Care Team (Late st Contact Info) Description 11/23/2023 Telephone [facility] Orthopaedic Surgery [address] [facility] 1st [address] [place] [address] Marcial Vu Jr., MD [address] [facility] [place] [address] Social History Tobacco Use Types Packs/Day Years Used Date Smoking Tobacco: Former Cigarettes 1 11 0 11/05/1968 - 11/05/1979 Passive Smoke Exposure: Past Smokeless Tobacco: Never Alcohol Use Standard Drinks/Week Comments Yes 14 (1 standard drink = 0.6 oz pu re alcohol) social [facility] Utilities Answer Date Recorded In the past 12 months has [employer] electric, gas, oil, or water company threatened [...] attend chur ch or nondenominational services? Never 11/10/2023 Do you belong to [...] slept in a longterm (including now)? 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 Tonie MD at [facility] where pt currently resides. 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 Pt with history of PE, anticoagulation stopped and IVC filter placed on 11/09- recs to restart AC with prophylactic dosing at POD 21 (11/29). Dr. Schilling wanting to consult with Dr. Vu for recs on restarting AC if true +BLE DVTs. Informed Dr. Schilling I will relay message to Dr. Vu, and Dr. Vu or myself will contacthim later today for further discussion. Dr. Schilling in agreement with plan. Message sent to Dr. Vu. CULTURAL SERVICE TECHNICIAN documented in this encounter Plan of Treatment Not on file documented as of this encounter Visit Diagnoses Not on filedocumented in this encounter Care Teams Mandolin Repair Person Relationship Specialty Start Date End Date Rl Medina DO [address] [place] [address] PCP - General 08/09/17 05/25/24 documented as of this encounter
--- OUTSIDE RECORDS SUMMARY | 2024-11-05 19:22 | XMS_ITS | Encounter Summary ---
Author Organization [facility] Address [address] [place] [address] Care Team Providers Care Material Engineer Name Role Phone Rl Medina DO Primary Care Provider [phone] Encounter Details Date Type Department Care Team (Late st Contact Info) Description 11/22/2023 Orders Only [facility] [phone] Unknown, Notinfile Social History Tobacco Use Types Packs/Day Years Used Date Smoking Tobacco: Former Cigarettes 1 11 0 11/05/1968 - 11/05/1979 Passive Smoke Exposure: Past Smokeless Tobacco: Never Alcohol Use Standard Drinks/Week Comments Yes 14 (1 standard drink = 0.6 oz pu re alcohol) social [facility] Utilities Answer Date Recorded In the past 12 months has [employer], gas, oil, or water [employer] threatened to shut off services in your [...] attend chur ch or scientologist services? Never 11/10/2023 Do you belong to [...] slept in a prison (including now)? 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 Not on file Not on file documented as of this encounter Plan of Treatment Not on file documented as of this encounter Procedures Procedure Name Priority Date/Time Associated Diagnosis Comments CS GLUCOSE Routine Gen Lab 11/22/2023 6:36 AM MEDIA LIBRARIAN EGFR Routine Gen Lab 11/22/2023 6:36 AM MEDIA LIBRARIAN DIFFERENTIAL AUTO Routine Gen Lab 11/22/2023 6:3 6 AM MEDIA LIBRARIAN COMPREHENSIVE METABOLIC PANEL WITHOUT GLUCOSE (OUTREACH) Routine Gen Lab 11/22/2023 6:36 AM MEDIA LIBRARIAN CBC WITH AUTO DIFFERENTIAL Routine Gen Lab 11/22/2023 6:36 AM MEDIA LIBRARIAN documented in this encounter Results * eGFR (11/22/2023 6:36 AM MEDIA LIBRARIAN) eGFR 69 >=60 mL/min/1. 73 m2 [facility] Comment: [...] was last reviewed 2021. Testing performed by: [facility], [address] [place]., [address] Blood 11/22/2023 6:36 AM MEDIA LIBRARIAN 11/22/2023 12:44 PM MEDIA LIBRARIAN us Notinfile Unknown LAB BLOOD ORDERABLES Final Res ult [facility] Department [place] [address] * (ABNORMAL) Comprehensive metabolic panel, without glucose (Outreach) (11/22/2023 6:36 AM MEDIA LIBRARIAN) Sodium 134(L) 135 - 145 mmol/L [facility] Comment:Testing performed by : [facility], [address] [facility], [address] Potassium, pl 4.3 3.3 - 4.9 mmol/L [facility] Comment:Testing performed by : [facility], [address] [facility], [address] Chloride 97 97 - 110 mmol/L [facility] Comment:Testing performed by : [facility], [address] [facility], [address] CO2 22 22 - 32 mmol/L [facility] Comment:Testing performed by : [facility], [address] [facility], [address] Anion gap 15 2 - 15 mmol/L [facility] Comment:Testing performed by : [facility], [address] [facility], [address] BUN 45(H) 6 - 25 mg/dL [facility] Comment:Testing performed by : [facility], [address] [facility], [address] Creatinine 1.13 0.80 - 1.30 mg/dL [facility] Comment:Testing performed by : [facility], [address] [facility], [address] Calcium 9.1 8.5 - 10.3 mg/dL [facility] Comment:Testing performed by : [facility], [address] [place]., [address] Protein, pl 6.3(L) 6.5 - 8.5 g/dL [facility] Comment:Testing performed by : [facility], [address] [place]., [address] Albumin 3.2(L) 3.5 - 5.0 g/dL [facility] Comment:Testing performed by : [facility], [address] [facility], [address] Bilirubin, total 0.5 0.1 - 1.2 mg/dL [facility] Comment:Testing performed by : [facility], [address] [facility], [address] Alk phos 102 40 - 130 Units/L [facility] Comment:Testing performed by : [facility], [address] [facility], [address] AST 27 10 - 50 Units/L [facility] Comment:Testing performed by : [facility], [address] [place] [address], [address] ALT 36 7 - 55 Units/L [facility] Comment:Testing performed by : [facility], [address] [place] [address], [address] Blood 11/22/2023 6:36 AM MEDIA LIBRARIAN 11/22/2023 11:50 AM MEDIA LIBRARIAN us Notinfile Unknown LAB BLOOD ORDERABLES Final Res ult [facility] [address] [facility] Department [place] [address] * CS GLUCOSE (11/22/2023 6:36 AM MEDIA LIBRARIAN) Glucose 111 70 - 199 mg/dL [facility] Comment: Interpretive Data Fasting glucose [...] was last revised 2022. Testing performed by: [facility], [address] [place]., [address] Blood 11/22/2023 6:36 AM MEDIA LIBRARIAN 11/22/2023 11:50 AM MEDIA LIBRARIAN us Notinfile Unknown LAB BLOOD ORDERABLES Final Res ult [facility] [address] [facility] [place] [address] * (ABNORMAL) Differential, auto (11/22/2023 6:36 AM MEDIA LIBRARIAN) Neutrophil abs 9.6(H) 1.5 - 6.5 K/cumm [facility] Comment:Testing performed by : [facility], [address] [place] [address]., [address] Imm gran abs 0.1 0.0 - 0.1 K/cumm [facility] Comment:Testing performed by : [facility], [address] [place] [address]., [address] Lymphocyte abs 1.6 0.8 - 3.3 K/cumm [facility] Comment:Testing performed by : [facility], [address] [place] [address]., [address] Monocyte abs 1.1(H) 0.2 - 0.8 K/cumm [facility] Comment:Testing performed by : [facility], [address] [place]., [address] Eosinophil abs 0.4 0.0 - 0.5 K/cumm [facility] Comment:Testing performed by : [facility], [address] [place]., [address] Basophil abs 0.0 0.0 - 0.1 K/cumm [facility] Comment:Testing performed by : [facility], [address] [place]., [address] Neutrophil pct 74.1 % [facility] Comment: Interpretive Data Percent cell count reference ranges are not reported, since discordance with absolute values may lead to misinterpretation of CBC data. Current Interpretive Data was last revised on 2018. Testing performed by: [facility], [address] [place]., [address] Imm gran pct 1.1 % [facility] Comment: Interpretive Data Percent cell count reference ranges are not reported, since discordance with absolute values may lead to misinterpretation of CBC data. Current Interpretive Data was last revised on 2018. Testing performed by: [facility], [address] [place]., [address] Lymphocyte pct 12.7 % [facility] Comment: Interpretive Data Percent cell count reference ranges are not reported, since discordance with absolute values may lead to misinterpretation of CBC data. Current Interpretive Data was last revised on 2018. Testing performed by: [facility], [address] [place] [address]., [address] Monocyte pct 8.6 % [facility] Comment: Interpretive Data Percent cell count reference ranges are not reported, since discordance with absolute values may lead to misinterpretation of CBC data. Current Interpretive Data was last revised on 2018. Testing performed by: [facility], [address] [place]., [address] Eosinophil pct 3.3 % [facility] Comment: Interpretive Data Percent cell count reference ranges are not reported, since discordance with absolute values may lead to misinterpretation of CBC data. Current Interpretive Data was last revised on 2018. Testing performed by: [facility], [address] [place]., [address] Basophil pct 0.2 % [facility] Comment: Interpretive Data Percent cell count reference ranges are not reported, since discordance with absolute values may lead to misinterpretation of CBC data. Current Interpretive Data was last revised on 2018. Testing performed by: [facility], [address] [place]., [address] Blood 11/22/2023 6:36 AM MEDIA LIBRARIAN 11/22/2023 11:50 AM MEDIA LIBRARIAN us Notinfile Unknown LAB BLOOD ORDERABLES Final Res ult [facility] Department [place] [address] * (ABNORMAL) CBC with auto differential (11/22/2023 6:36 AM MEDIA LIBRARIAN) WBC 12.9(H) 3.8 - 9.9 K/cumm [facility] Comment:Testing performed by : [facility], [address] [place] [address]., [address] Hgb 8.8(L) 13.0 - 17.5 g/dL [facility] Comment:Testing performed by : [facility], [address] [place]., [address] Hct 27.8(L) 38.9 - 50.3 % [facility] Comment:Testing performed by : [facility], [address] [place]., [address] Plt 110(L) 150 - 400 K/cumm [facility] Comment:Testing performed by : [facility], [address] [place] [address]., [address] MPV 12.4(H) 9.1 - 12.3 fL [facility] Comment:Testing performed by : [facility], [address] [facility], [address] RBC 2.83(L) 4.30 - 5.80 M/cumm [facility] Comment:Testing performed by : [facility], [address] [facility], [address] MCV 98.2(H) 81.3 - 96.4 fL [facility] Comment:Testing performed by : [facility], [address] [facility], [address] MCH 31.1 27.1 - 33.3 pg [facility] Comment:Testing performed by : [facility], [address] [facility], [address] MCHC 31.7(L) 32.3 - 35.7 g/dL [facility] Comment:Testing performed by : [facility], [address] [facility], [address] RDW CV 16.0(H) 11.1 - 14.9 % [facility] Comment:Testing performed by : [facility], [address] [facility], [address] RDW SD 57.7(H) 35.7 - 48.1 fL [facility] Comment:Testing performed by : [facility], [address] [facility], [address] NRBC abs 0.00 0.00 - 0.01 K/cumm [facility] Comment:Testing performed by : [facility], [address] [place] [address], [address] Blood 11/22/2023 6:36 AM MEDIA LIBRARIAN 11/22/2023 11:50 AM MEDIA LIBRARIAN us Notinfile Unknown LAB BLOOD ORDERABLES Final Res ult [facility] [place] [address] documented in this encounter Visit Diagnoses Not on filedocumented in this encounter Care Teams Material Engineer Relationship Specialty Start Date End Date Rl Medina DO [address] [place] [address] PCP - General 08/09/17 05/25/24 documented as of this encounter
--- OUTSIDE RECORDS SUMMARY | 2024-11-05 19:22 | XMS_ITS | Encounter Summary ---
Author Organization [facility] Healthcare Address [address] [place] [address] Care Team Providers Care Internist Medical Doctor Md Name Role Phone Rl Medina DO Primary Care Provider Encounter Details Date Type Department Care Team (Late st Contact Info) Description 11/21/2023 Orders Only [facility] Interim [phone] Unknown, Notinfile Social History Tobacco Use Types Packs/Day Years Used Date Smoking Tobacco: Former Cigarettes 1 11 0 11/05/1968 - 11/05/1979 Passive Smoke Exposure: Past Smokeless Tobacco: Never Alcohol Use Standard Drinks/Week Comments Yes 14 (1 standard drink = 0.6 oz pu re alcohol) social [facility] Utilities Answer Date Recorded In the past 12 months has [employer], gas, oil, or water [employer] threatened to shut off services in your [...] attend chur ch or druze services? 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 Not on file Not on file documented as of this encounter Plan of Treatment Not on file documented as of this encounter Procedures Procedure Name Priority Date/Time Associated Diagnosis Comments URINALYSIS AND REFLEX TO MICROSCOPIC AND CULTURE Routine Gen Lab 11/21/2023 6:57 PM STENOTYPIST URINALYSIS, MICROSCOPIC ONLY Routine Gen Lab 11/21/2023 6:57 PM STENOTYPIST URINE CULTURE Routine Gen Lab 11/21/2023 6:57 PM STENOTYPIST documented in this encounter Results * (ABNORMAL) Urine culture Urine (11/21/2023 6:57 PM STENOTYPIST) Report Final Report: Greater than or equal to 100,000 colonies/mL of Enterobacter cloacae complex (.) [facility] Comment:Testing performed by : [facility], [address] [facility], [place]., [address] Organism ENTEROBACTER CLOACAE COMPLEX [facility] Urine 11/21/2023 6:57 PM STENOTYPIST 11/21/2023 10:40 PM STENOTYPIST Narrative [facility] - 11/22/2023 4:16 PM STENOTYPIST Urine culture reflexed based upon urinalysis results. Testing performed by [facility] ([phone]) Organism Antibiotic Method Susceptibility Enterobacter cloacae complex Ampicillin INTERPRETATION Resistant Enterobacter cloacae complex Cefazolin INTERPRETATION Resistant Enterobacter cloacae complex Nitrofurantoin INTERPRETATION Susceptible Enterobacter cloacae complex Gentamicin INTERPRETATION Susceptible Enterobacter cloacae complex Trimethoprim with Sulfamethoxazole INTERPRETATION Susceptible Enterobacter cloacae complex Cefepime INTERPRETATION Susceptible Enterobacter cloacae complex Ciprofloxacin INTERPRETATION Susceptible Enterobacter cloacae complex Ceftazidime INTERPRETATION Resistant Enterobacter cloacae complex Ceftriaxone INTERPRETATION Resistant Enterobacter cloacae complex Piperacillin/Tazobactam INTERPRETATION Resistant us Notinfile Unknown LAB MICROBIOLOGY - GENERAL ORD ERABLES Final Result [facility] [address] [facility] Department [place] [address] * (ABNORMAL) Urinalysis, microscopic only (11/21/2023 6:57 PM STENOTYPIST) WBC, ur >50(A) 0 - 5 /HPF [facility] Comment:Testing performed by : [facility], [address] [facility], [address] RBC, ur >50(A) 0 - 2 /HPF [facility] Comment:Testing performed by : [facility], [address] [facility], [address] Bacteria, ur 1+(A) [facility] Comment:Testing performed by : [facility], [address] [facility], [address] Yeast, ur Trace(A) [facility] Comment:Testing performed by : [facility], [address] [facility], [address] Hyaline casts, ur 6-10 0 - 10 /LPF [facility] Comment:Testing performed by : [facility], [address] [place] [address], [address] Culture Reflex Comment Reflex to urine culture will be performed. [facility] Comment:Testing performed by : [facility], [address] [place] [address], [address] Urine 11/21/2023 6:57 PM STENOTYPIST 11/21/2023 7:44 PM STENOTYPIST us Notinfile Unknown LAB URINE ORDERABLES Final Res ult [facility] [address] [facility] Department [place] [address] * (ABNORMAL) Urinalysis reflex to microscopic and culture Urine (11/21/2023 6:57 PM STENOTYPIST) Color, ur Yellow Yellow [facility] Comment:Testing performed by : [facility], [address] [facility], [address] Clarity, ur Turbid(A) Clear [facility] Comment:Testing performed by : [facility], [address] [place]., [address] Specific gravity, ur 1.023 1.003 - 1.030 [facility] Comment:Testing performed by : [facility], [address] [place]., [address] pH, urine 6.0 [facility] Comment: Interpretive Data Urine pH is affected by diet, medications, systemic acid-base disturbances, and renal tubular function. ??pH may affect urinary stone formation. ??For example, urine pH below 6.0 may help reduce the tendency for calcium phosphate stones and pH greater than 6.0 may reduce the tendency for uric acid stone formation. Source: [facility] [employer] Current Interpretive Data was last revised on 2017 Testing performed by: [facility], [address] [place] [address]., [address] Protein, ur ql 2+(A) Negative [facility] Comment:Testing performed by : [facility], [address] [place] [address], [address] Glucose, ur ql Negative Negative [facility] Comment:Testing performed by : [facility], [address] [place] [address], [address] Ketones, ur Negative Negative [facility] Comment:Testing performed by : [facility], [address] [place] [address], [address] Bilirubin, ur Negative Negative [facility] Comment:Testing performed by : [facility], [address] [place] [address]., [address] Blood, ur 3+(A) Negative [facility] Comment:Testing performed by : [facility], [address] [place] [address]., [address] Urobilinogen, ur <2.0 <2.0 mg/dL [facility] Comment:Testing performed by : [facility], [address] [place] [address]., [address] Nitrite, ur Negative Negative [facility] Comment:Testing performed by : [facility], [address] [facility], [place]., [address] Leukocyte esterase, ur 3+(A) Negative [facility] Comment:Testing performed by : [facility], [address] [facility], [place]., [address] UA reflex comment Reflex to microscopic UA will be performed. [facility] Comment:Testing performed by : [facility], [address] [facility], [place]., [address] Urine 11/21/2023 6:57 PM STENOTYPIST 11/21/2023 7:44 PM STENOTYPIST Narrative [facility] - 11/21/2023 8:31 PM STENOTYPIST Orthostasis us Notinfile Unknown LAB MICROBIOLOGY - GENERAL ORD ERABLES Final Result [facility] [address] [facility] Department [place] [address] documented in this encounter Visit Diagnoses Not on filedocumented in this encounter Care Teams Internist Medical Doctor Md Relationship Specialty Start Date End Date Rl Medina DO [address] [place], [place] [address] PCP - General 08/09/17 05/25/24 documented as of this encounter
--- OUTSIDE RECORDS SUMMARY | 2024-11-05 19:22 | XMS_ITS | Encounter Summary ---
Author Organization [facility] Healthcare Address [address] [place] [address] Care Team Providers Care Fur Matcher Name Role Phone Rl Medina DO Primary Care Provider Marlen Gray RN Unavailable [phone] Encounter Details Date Type Department Care Team (Late st Contact Info) Description 11/09/2023 Orders Only [facility] Radiology [address] [place] [address] Melissa Dasilva RN Social History Tobacco Use Types Packs/Day Years Used Date Smoking Tobacco: Former Cigarettes 1 11 0 11/05/1968 - 11/05/1979 Passive Smoke Exposure: Past Smokeless Tobacco: Never Alcohol Use Standard Drinks/Week Comments Yes 14 (1 standard drink = 0.6 oz pu re alcohol) social [facility] Utilities Answer Date Recorded In the past 12 months has [employer], oil, or water [employer] threatened to shut off services in your [...] How often do you attend chur or buddhism services? Never 11/10/2023 Do you [...] slept in a residential (including now)? 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
--- OUTSIDE RECORDS SUMMARY | 2024-11-05 19:22 | XMS_ITS | Encounter Summary ---
Author Organization [facility] Healthcare Address [address] [place] [address] Care Team Providers Care Legal Service Specialist Name Role Phone Rl Medina DO Primary Care Provider [phone] Encounter Details Date Type Department Care Team (Late st Contact Info) Description 11/19/2023 Orders Only [facility] Interim [phone] Unknown, Notinfile Social History Tobacco Use Types Packs/Day Years Used Date Smoking Tobacco: Former Cigarettes 1 11 0 11/05/1968 - 11/05/1979 Passive Smoke Exposure: Past Smokeless Tobacco: Never Alcohol Use Standard Drinks/Week Comments Yes 14 (1 standard drink = 0.6 oz pu re alcohol) social [facility] Utilities Answer Date Recorded In the past 12 months has [employer], gas, oil, or water [employer] threatened to shut off services in your [...] often do you attend chur ch or sabianist services? 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 Not on file Not on file documented as of this encounter Plan of Treatment Not on file documented as of this encounter Procedures Procedure Name Priority Date/Time Associated Diagnosis Comments CS GLUCOSE Routine Gen Lab 11/19/2023 6:30 AM CUSHION WORKER EGFR Routine Gen Lab 11/19/2023 6:30 AM CUSHION WORKER DIFFERENTIAL AUTO Routine Gen Lab 11/19/2023 6:3 0 AM CUSHION WORKER COMPREHENSIVE METABOLIC PANEL WITHOUT GLUCOSE (OUTREACH) Routine Gen Lab 11/19/2023 6:30 AM CUSHION WORKER CBC WITH AUTO DIFFERENTIAL Routine Gen Lab 11/19/2023 6:30 AM CUSHION WORKER documented in this encounter Results * eGFR (11/19/2023 6:30 AM CUSHION WORKER) eGFR >90 >=60 mL/min/1. 73 m2 [...] was last reviewed 2021. Testing performed by: [facility], [address] [place]., [address] Blood 11/19/2023 6:30 AM CUSHION WORKER 11/19/2023 12:08 PM CUSHION WORKER us Notinfile Unknown LAB BLOOD ORDERABLES Final Res ult [facility] [address] [facility] Department [place] [address] * (ABNORMAL) Comprehensive metabolic panel, without glucose (Outreach) (11/19/2023 6:30 AM CUSHION WORKER) Sodium 139 135 - 145 mmol/L [facility] Comment:Testing performed by : [facility], [address] [facility], [address] Potassium, pl 4.0 3.3 - 4.9 mmol/L [facility] Comment:Testing performed by : [facility], [address] [facility], [address] Chloride 99 97 - 110 mmol/L [facility] Comment:Testing performed by : [facility], [address] [facility], [address] CO2 26 22 - 32 mmol/L [facility] Comment:Testing performed by : [facility], [address] [facility], [address] Anion gap 14 2 - 15 mmol/L [facility] Comment:Testing performed by : [facility], [address] [facility], [address] BUN 24 6 - 25 mg/dL [facility] Comment:Testing performed by : [facility], [address] [facility], [address] Creatinine 0.65(L) 0.80 - 1.30 mg/dL [facility] Comment:Testing performed by : [facility], [address] [facility], [address] Calcium 8.5 8.5 - 10.3 mg/dL [facility] Comment:Testing performed by : [facility], [address] [place]., [address] Protein, pl 5.8(L) 6.5 - 8.5 g/dL [facility] Comment:Testing performed by : [facility], [address] [facility], [address] Albumin 3.2(L) 3.5 - 5.0 g/dL [facility] Comment:Testing performed by : [facility], [address] [facility], [address] Bilirubin, total 0.4 0.1 - 1.2 mg/dL [facility] Comment:Testing performed by : [facility], [address] [facility], [address] Alk phos 112 40 - 130 Units/L [facility] Comment:Testing performed by : [facility], [address] [facility], [address] AST 32 10 - 50 Units/L [facility] Comment:Testing performed by : [facility], [address] [place] [address], [address] ALT 46 7 - 55 Units/L [facility] Comment:Testing performed by : [facility], [address] [place] [address], [address] Blood 11/19/2023 6:30 AM CUSHION WORKER 11/19/2023 11:51 AM CUSHION WORKER us Notinfile Unknown LAB BLOOD ORDERABLES Final Res ult [facility] Department [place] [address] * CS GLUCOSE (11/19/2023 6:30 AM CUSHION WORKER) Glucose 92 70 - 199 mg/dL [facility] Comment: Interpretive Data Fasting glucose >/= 126 [...] was last revised 2022. Testing performed by: [facility], [address] [place]., [address] Blood 11/19/2023 6:30 AM CUSHION WORKER 11/19/2023 11:51 AM CUSHION WORKER us Notinfile Unknown LAB BLOOD ORDERABLES Final Res ult [facility] [address] [facility] Department [place] [address] * (ABNORMAL) Differential, auto (11/19/2023 6:30 AM CUSHION WORKER) Neutrophil abs 9.1(H) 1.5 - 6.5 K/cumm [facility] Comment:Testing performed by : [facility], [address] [place] [address]., [address] Imm gran abs 0.3(H) 0.0 - 0.1 K/cumm [facility] Comment:Testing performed by : [facility], [address] [place] [address]., [address] Lymphocyte abs 2.3 0.8 - 3.3 K/cumm [facility] Comment:Testing performed by : [facility], [address] [place] [address]., [address] Monocyte abs 0.9(H) 0.2 - 0.8 K/cumm [facility] Comment:Testing performed by : [facility], [address] [place]., [address] Eosinophil abs 0.5 0.0 - 0.5 K/cumm [facility] Comment:Testing performed by : [facility], [address] [place]., [address] Basophil abs 0.0 0.0 - 0.1 K/cumm [facility] Comment:Testing performed by : [facility], [address] [place]., [address] Neutrophil pct 69.1 % [facility] Comment: Interpretive Data Percent cell count reference ranges are not reported, since discordance with absolute values may lead to misinterpretation of CBC data. Current Interpretive Data was last revised on 2018. Testing performed by: [facility], [address] [place]., [address] Imm gran pct 2.4 % [facility] Comment: Interpretive Data Percent cell count reference ranges are not reported, since discordance with absolute values may lead to misinterpretation of CBC data. Current Interpretive Data was last revised on 2018. Testing performed by: [facility], [address] [place]., [address] Lymphocyte pct 17.8 % [facility] Comment: Interpretive Data Percent cell count reference ranges are not reported, since discordance with absolute values may lead to misinterpretation of CBC data. Current Interpretive Data was last revised on 2018. Testing performed by: [facility], [address] [place] [address]., [address] Monocyte pct 6.6 % [facility] Comment: Interpretive Data Percent cell count reference ranges are not reported, since discordance with absolute values may lead to misinterpretation of CBC data. Current Interpretive Data was last revised on 2018. Testing performed by: [facility], [address] [place]., [address] Eosinophil pct 3.9 % [facility] Comment: Interpretive Data Percent cell count reference ranges are not reported, since discordance with absolute values may lead to misinterpretation of CBC data. Current Interpretive Data was last revised on 2018. Testing performed by: [facility], [address] [place] [address] [place]., [address] Basophil pct 0.2 % [facility] Comment: Interpretive Data Percent cell count reference ranges are not reported, since discordance with absolute values may lead to misinterpretation of CBC data. Current Interpretive Data was last revised on 2018. Testing performed by: [facility], [address] [place]., [address] Blood 11/19/2023 6:30 AM CUSHION WORKER 11/19/2023 11:51 AM CUSHION WORKER us Notinfile Unknown LAB BLOOD ORDERABLES Final Res ult [facility] Department [place] [address] * (ABNORMAL) CBC with auto differential (11/19/2023 6:30 AM CUSHION WORKER) WBC 13.2(H) 3.8 - 9.9 K/cumm [facility] Comment:Testing performed by : [facility], [address] [place] [address], [address] Hgb 10.2(L) 13.0 - 17.5 g/dL [facility] Comment:Testing performed by : [facility], [address] [place] [address]., [address] Hct 32.2(L) 38.9 - 50.3 % [facility] Comment:Testing performed by : [facility], [address] [place] [address]., [address] Plt 177 150 - 400 K/cumm [facility] Comment:Testing performed by : [facility], [address] [place] [address]., [address] MPV 11.8 9.1 - 12.3 fL [facility] Comment:Testing performed by : [facility], [address] [place] [address], [address] RBC 3.26(L) 4.30 - 5.80 M/cumm [facility] Comment:Testing performed by : [facility], [address] [place]., [address] MCV 98.8(H) 81.3 - 96.4 fL [facility] Comment:Testing performed by : [facility], [address] [facility], [address] MCH 31.3 27.1 - 33.3 pg [facility] Comment:Testing performed by : [facility], [address] [facility], [address] MCHC 31.7(L) 32.3 - 35.7 g/dL [facility] Comment:Testing performed by : [facility], [address] [facility], [address] RDW CV 16.5(H) 11.1 - 14.9 % [facility] Comment:Testing performed by : [facility], [address] [facility], [address] RDW SD 59.0(H) 35.7 - 48.1 fL [facility] Comment:Testing performed by : [facility], [address] [facility], [address] NRBC abs 0.00 0.00 - 0.01 K/cumm [facility] Comment:Testing performed by : [facility], [address] [place] [address], [address] Blood 11/19/2023 6:30 AM CUSHION WORKER 11/19/2023 11:51 AM CUSHION WORKER us Notinfile Unknown LAB BLOOD ORDERABLES Final Res ult [facility] Department [place] [address] documented in this encounter Visit Diagnoses Not on filedocumented in this encounter Care Teams Legal Service Specialist Relationship Specialty Start Date End Date Rl Medina DO [address] [place] [address] PCP - General 08/09/17 05/25/24 documented as of this encounter
--- OUTSIDE RECORDS SUMMARY | 2024-11-05 19:22 | XMS_ITS | Encounter Summary ---
Author Organization [facility] Healthcare Address [address] [place] [address] Care Team Providers Care Wound Care Rn Name Role Phone Rl Medina DO Primary Care Provider Encounter Details Date Type Department Care Team (Late st Contact Info) Description 11/17/2023 Orders Only [facility] [phone] Unknown, Notinfile Social History Tobacco Use Types Packs/Day Years Used Date Smoking Tobacco: Former Cigarettes 1 11 0 11/05/1968 - 11/05/1979 Passive Smoke Exposure: Past Smokeless Tobacco: Never Alcohol Use Standard Drinks/Week Comments Yes 14 (1 standard drink = 0.6 oz pu re alcohol) social [facility] Utilities Answer Date Recorded In the past 12 months has [employer], gas, oil, or water [employer] threatened to shut off services in your [...] on file 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 PHARMACY CARE 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 Gender Identity Not on file Sexual Orientation Not on file 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 Not on file Not on file documented as of this encounter Plan of Treatment Not on file documented as of this encounter Procedures Procedure Name Priority Date/Time Associated Diagnosis Comments CS GLUCOSE Routine Gen Lab 11/17/2023 6:05 AM PHARMACY CARE COORDINATOR EGFR Routine Gen Lab 11/17/2023 6:05 AM PHARMACY CARE COORDINATOR DIFFERENTIAL AUTO Routine Gen Lab 11/17/2023 6:0 5 AM PHARMACY CARE COORDINATOR COMPREHENSIVE METABOLIC PANEL WITHOUT GLUCOSE (OUTREACH) Routine Gen Lab 11/17/2023 6:05 AM PHARMACY CARE COORDINATOR CBC WITH AUTO DIFFERENTIAL Routine Gen Lab 11/17/2023 6:05 AM PHARMACY CARE COORDINATOR VITAMIN D 25 HYDROXY Routine Gen Lab 11/17/2023 6:05 AM PHARMACY CARE COORDINATOR documented in this encounter Results * eGFR (11/17/2023 6:05 AM PHARMACY CARE COORDINATOR) eGFR >90 >=60 mL/min/1. 73 m2 [facility] Comment: Interpretive Data Reference Interval Normal [...] was last reviewed 2021. Testing performed by: [facility], [address] [place]., [address] Blood 11/17/2023 6:05 AM PHARMACY CARE COORDINATOR 11/17/2023 8:39 AM PHARMACY CARE COORDINATOR us Notinfile Unknown LAB BLOOD ORDERABLES Final Res ult [facility] Department [place] [address] * (ABNORMAL) Comprehensive metabolic panel, without glucose (Outreach) (11/17/2023 6:05 AM PHARMACY CARE COORDINATOR) Sodium 137 135 - 145 mmol/L [facility] Comment:Testing performed by : [facility], [address] [place] [address]., [address] Potassium, pl 3.8 3.3 - 4.9 mmol/L [facility] Comment:Testing performed by : [facility], [address] [place] [address]., [address] Chloride 103 97 - 110 mmol/L [facility] Comment:Testing performed by : [facility], [address] [place]., [address] CO2 25 22 - 32 mmol/L [facility] Comment:Testing performed by : [facility], [address] [place]., [address] Anion gap 9 2 - 15 mmol/L [facility] Comment:Testing performed by : [facility], [address] [place] [address]., [address] BUN 30(H) 6 - 25 mg/dL [facility] Comment:Testing performed by : [facility], [address] [place]., [address] Creatinine 0.73(L) 0.80 - 1.30 mg/dL [facility] Comment:Testing performed by : [facility], [address] [place]., [address] Calcium 7.9(L) 8.5 - 10.3 mg/dL [facility] Comment:Testing performed by : [facility], [address] [facility], [address] Protein, pl 5.4(L) 6.5 - 8.5 g/dL [facility] Comment:Testing performed by : [facility], [address] [facility], [address] Albumin 3.0(L) 3.5 - 5.0 g/dL [facility] Comment:Testing performed by : [facility], [address] [facility], [address] Bilirubin, total 0.3 0.1 - 1.2 mg/dL [facility] Comment:Testing performed by : [facility], [address] [facility], [address] Alk phos 105 40 - 130 Units/L [facility] Comment:Testing performed by : [facility], [address] [facility], [address] AST 31 10 - 50 Units/L [facility] Comment:Testing performed by : [facility], [address] [facility], [address] ALT 42 7 - 55 Units/L [facility] Comment:Testing performed by : [facility], [address] [place] [address], [address] Blood 11/17/2023 6:05 AM PHARMACY CARE COORDINATOR 11/17/2023 8:29 AM PHARMACY CARE COORDINATOR us Notinfile Unknown LAB BLOOD ORDERABLES Final Res ult [facility] Department [place] [address] * Vitamin D 25 hydroxy (11/17/2023 6:05 AM PHARMACY CARE COORDINATOR) Vitamin D 25-OH 50 30 - 80 ng/mL [facility] Comment:Testing performed by : [facility], [address] [place] [address]., [address] Blood 11/17/2023 6:05 AM PHARMACY CARE COORDINATOR 11/17/2023 8:29 AM PHARMACY CARE COORDINATOR us Notinfile Unknown LAB BLOOD ORDERABLES Final Res ult Performing Organization Address City/[facility] Co de Phone Number [facility] Department [place] [address] * CS GLUCOSE (11/17/2023 6:05 AM PHARMACY CARE COORDINATOR) [facility] Glucose 108 70 - 199 mg/dL [facility] Comment: Interpretive Data Fasting glucose [...] was last revised 2022. Testing performed by: [facility], [address] [place] [address], [place]., [address] Blood 11/17/2023 6:05 AM PHARMACY CARE COORDINATOR 11/17/2023 8:29 AM PHARMACY CARE COORDINATOR us Notinfile Unknown LAB BLOOD ORDERABLES Final Res ult Performing Organization Address [facility] Co de Phone Number [facility] Department [place] [address] * (ABNORMAL) Differential, auto (11/17/2023 6:05 AM PHARMACY CARE COORDINATOR) [facility] Neutrophil abs 9.9(H) 1.5 - 6.5 K/cumm [facility] Comment:Testing performed by : [facility], [address] [place]., [address] Imm gran abs 0.4(H) 0.0 - 0.1 K/cumm [facility] Comment:Testing performed by : [facility], [address] [place]., [address] Lymphocyte abs 1.9 0.8 - 3.3 K/cumm [facility] Comment:Testing performed by : [facility], [address] [place]., [address] Monocyte abs 1.1(H) 0.2 - 0.8 K/cumm [facility] Comment:Testing performed by : [facility], [address] [place]., [address] Eosinophil abs 0.1 0.0 - 0.5 K/cumm [facility] Comment:Testing performed by : [facility], [address] [place]., [address] Basophil abs 0.0 0.0 - 0.1 K/cumm [facility] Comment:Testing performed by : [facility], [address] [place]., [address] Neutrophil pct 73.9 % [facility] Comment: Interpretive Data Percent cell count reference ranges are not reported, since discordance with absolute values may lead to misinterpretation of CBC data. Current Interpretive Data was last revised on 2018. Testing performed by: [facility], [address] [place]., [address] Imm gran pct 2.6 % [facility] Comment: Interpretive Data Percent cell count reference ranges are not reported, since discordance with absolute values may lead to misinterpretation of CBC data. Current Interpretive Data was last revised on 2018. Testing performed by: [facility], [address] [place]., [address] Lymphocyte pct 14.4 % [facility] Comment: Interpretive Data Percent cell count reference ranges are not reported, since discordance with absolute values may lead to misinterpretation of CBC data. Current Interpretive Data was last revised on 2018. Testing performed by: [facility], [address] [place]., [address] Monocyte pct 8.5 % [facility] Comment: Interpretive Data Percent cell count reference ranges are not reported, since discordance with absolute values may lead to misinterpretation of CBC data. Current Interpretive Data was last revised on 2018. Testing performed by: [facility], [address] [place]., [address] Eosinophil pct 0.4 % [facility] Comment: Interpretive Data Percent cell count reference ranges are not reported, since discordance with absolute values may lead to misinterpretation of CBC data. Current Interpretive Data was last revised on 2018. Testing performed by: [facility], [address] [place]., [address] Basophil pct 0.2 % [facility] Comment: Interpretive Data Percent cell count reference ranges are not reported, since discordance with absolute values may lead to misinterpretation of CBC data. Current Interpretive Data was last revised on 2018. Testing performed by: [facility], [address] [place]., [address] Blood 11/17/2023 6:05 AM PHARMACY CARE COORDINATOR 11/17/2023 8:29 AM PHARMACY CARE COORDINATOR us Notinfile Unknown LAB BLOOD ORDERABLES Final Res ult [facility] Department [place] [address] * (ABNORMAL) CBC with auto differential (11/17/2023 6:05 AM PHARMACY CARE COORDINATOR) WBC 13.4(H) 3.8 - 9.9 K/cumm [facility] Comment:Testing performed by : [facility], [address] [place] [address]., [address] Hgb 9.1(L) 13.0 - 17.5 g/dL [facility] Comment:Testing performed by : [facility], [address] [facility], [address] Hct 27.4(L) 38.9 - 50.3 % [facility] Comment:Testing performed by : [facility], [address] [facility], [address] Plt 171 150 - 400 K/cumm [facility] Comment:Testing performed by : [facility], [address] [facility], [address] MPV 12.0 9.1 - 12.3 fL [facility] Comment:Testing performed by : [facility], [address] [facility], [address] RBC 2.90(L) 4.30 - 5.80 M/cumm [facility] Comment:Testing performed by : [facility], [address] [facility], [address] MCV 94.5 81.3 - 96.4 fL [facility] Comment:Testing performed by : [facility], [address] [facility], [address] MCH 31.4 27.1 - 33.3 pg [facility] Comment:Testing performed by : [facility], [address] [place] [address], [address] MCHC 33.2 32.3 - 35.7 g/dL [facility] Comment:Testing performed by : [facility], [address] [place] [address], [address] RDW CV 15.7(H) 11.1 - 14.9 % [facility] Comment:Testing performed by : [facility], [address] [facility], [address] RDW SD 52.8(H) 35.7 - 48.1 fL [facility] Comment:Testing performed by : [facility], [address] [facility], [address] NRBC abs 0.00 0.00 - 0.01 K/cumm [facility] Comment:Testing performed by : [facility], [address] [facility], [place]., [address] Blood 11/17/2023 6:05 AM PHARMACY CARE COORDINATOR 11/17/2023 8:29 AM PHARMACY CARE COORDINATOR us Notinfile Unknown LAB BLOOD ORDERABLES Final Res ult [facility] Department [place] [address] documented in this encounter Visit Diagnoses Not on filedocumented in this encounter Care Teams Wound Care Rn Relationship Specialty Start Date End Date Rl Medina DO [address] [place], [place] [address] PCP - General 08/09/17 05/25/24 documented as of this encounter
--- OUTSIDE RECORDS SUMMARY | 2024-11-05 19:22 | XMS_ITS | Encounter Summary ---
Author Organization [facility] Healthcare Address [address] [place] [address] Care Team Providers Care Video Game Animator Name Role Phone Rl Medina DO Primary Care Provider Reason for Visit * Reason Comments Chart Review Encounter Details Date Type Department Care Team (Late st Contact Info) Description 11/16/2023 SHOP/CHAP Subsequent Outreach [facility] OP CASE MANAGEMENT [address] [place] [address] Marlen Gray RN [address] [facility] [address] [place], [place] [id number] Social History Tobacco Use Types Packs/Day Years Used Date Smoking Tobacco: Former Cigarettes 1 11 0 11/05/1968 - 11/05/1979 Passive Smoke Exposure: Past Smokeless Tobacco: Never Alcohol Use Standard Drinks/Week Comments Yes 14 (1 standard drink = 0.6 oz pu re alcohol) social C Utilities Answer Date Recorded In the past 12 months has [employer], gas, oil, or water [employer] threatened to shut off services in your [...] week 11/10/2023 How often do you attend [facility] or [facility] services? 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 Patient is no longer eligible for SHOP due to transferring to post-acute care facility. SHOP episode resolved. GER PATIENT documented in this encounter Plan of Treatment Not on file documented as of this encounter Visit Diagnoses Not on filedocumented in this encounter Care Teams Video Game Animator Relationship Specialty [place] [address] [place] [address] PCP - General 08/09/17 05/25/24 documented as of this encounter
--- OUTSIDE RECORDS SUMMARY | 2024-11-05 19:23 | XMS_ITS | Encounter Summary ---
Author Organization [facility] Healthcare Address [address] [place] [address] Care Team Providers Care Seasonal Greenery Bundler Name Role Phone Rl Medina DO Primary [...] Expiration Date Visits Re quested Visits Authorized [id number] 1 1 Encounter Details Date Type Department Care Team (Late st Contact Info) Description 11/08/2023 3:05 AM RAG SHREDDER - 11/08/2023 10:35 AM RAG SHREDDER Surgery [facility] Operating Room [address] [place] [address] Marcial Vu Jr., MD [address] [facility] [id number] [place] [address] LAMINECTOMY THORACIC DECOMPRESSION Surgery Details Date/Time Status Location OR Service Patient Class Case Class Case Type Trauma Case? 11/08/2023 3:05 AM Posted [facility] OR POD 5 235 Orthopaedics Emergency Emergent Panel 1 Procedure LRB Anes Op Region Wound Class Comments LAMINECTOMY THORACIC DECOMPRESSION N/A General Spine Lumbar Class I - Clean T5-L5 LAMINECTOMY LUMBAR - POSTERIOR N/A General Spine Lumbar Class I - Clean T5-L5 SPINAL CORD MONITORING N/A Choice Cl ass II - Clean Contaminated REPAIR DURAL TEAR N/A General Spine Lumbar Class I - Clean Surgeon Surgeon Role Service Panel Marcial Vu Jr., MD Primary Orthopaedic s 1 Simeon Cuevas MD Assisting Neurosurgery 1 Avila Esqueda MD Resident - Assisting Orthopae dics 1 Case Notes Called RUSS Gene [phone] @ [phone] notified him we need him for emergent spine case in 235, he said It might be a while but he will be there. documented in this encounter Social History Tobacco Use Types Packs/Day Years Used Date Smoking Tobacco: Former Cigarettes 1 11 0 11/05/1968 - 11/05/1979 Passive Smoke Exposure: Past Smokeless Tobacco: Never Alcohol Use Standard Drinks/Week Comments Yes 14 (1 standard drink = 0.6 oz pu re alcohol) social [employer] Utilities Answer Date Recorded In the past 12 months has [employer] electric, gas, oil, or water company threatened [...] week 10/31/2023 How often do you attend chur ch or bahai services? Never 10/31/2023 Do you belong to [...] slept in a prison (including now)? 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 Not on file Not on file documented as of this encounter Last Filed Vital Signs Vital Sign Reading Time Taken Comments Blood Pressure 137/81 11/07/2023 10:15 PM RAG SHREDDER Pulse 82 11/07/2023 10:15 PM RAG SHREDDER Temperature 36.4 ??C (97.6 ??F) 11/07/2023 9:21 PM CS T Respiratory Rate 16 11/07/2023 10:15 PM RAG SHREDDER Oxygen Saturation 98% 11/07/2023 10:15 PM RAG SHREDDER Inhaled Oxygen Concentration - - Weight 88.6 kg (195 lb 5.2 oz) 11/07/2023 9:21 P M RAG SHREDDER Height 172.7 cm (5' 7.99 ) 11/07/2023 9:21 PM CS T Body Mass Index 29.71 11/07/2023 9:21 PM RAG SHREDDER documented in this encounter Discharge Summaries * Francisco Javier Aleman, CARLA - 11/16/2023 12:18 PM CST Images from the original note were not included. Spine Inpatient Discharge Summary Admitting Provider: Marcial Vu MD Discharge Provider: Marcial Vu Fo* Primary Care Physician at Discharge: Rl Medina DO [phone] Admission Date: 11/07/2023 Discharge Date: 11/16/2023 Primary Discharge Diagnosis: Paralysis of both lower limbs (CMS/HCC) (HCC) Secondary Discharge Diagnosis: Principal Problem: Paralysis of both lower limbs (CMS/HCC) (HCC) Resolved Problems: No resolved hospital problems. DETAILS [...] he was directed to go to the [facility] ED, from which he was life flighted to [facility]. He endorsed rapid onset abdominalpain and altered [...] Incision: Absorbable sutures Brace: TLSO Surgical drains: [place] x2 removed on 11/12 Central Line Removed: [...] 5/5 5/5 Wrist flexion (C7) 5/5 5/5 Yoga Instructor (C8) 5/5 5/5 Interosseous of hand (T1) [...] URO BW MOB4 SCOTT 12/24/2023 2:20 PM [facility] BCT3 BJ N CT [facility] Main IMG 12/24/2023 3:30 PM Carrie Jerez [...] 1 tablet (10 mg total) by mouth production team advisor before breakfast For: inflammation of the nose due to an allergy Commonly known as: ZyrTEC cholecalciferol 5,000 unit capsule Take 1 capsule (5,000 Units total) by mouth every morning For: low vitamin D levels Commonly known as: VITAMIN D-3 coenzyme Q10 100 mg capsule Take 1 capsule (100 mg total) by mouth production team advisor before breakfast cyclobenzaprine 5 mg tablet Take [...] says it's OK. -Do not do any digital circuit designer that cause you to twist, push or [...] waterproof dressing while showering. Discharge Wound Type: Stitches/[place] -Stitches/annika will be removed at your next [...] Marcial Vu MD at 11/16/2023 4:07 PM RAG SHREDDER SHREDDER SHREDDER SHREDDER documented in this encounter Discharge Instructions * Discharge Instructions* Francisco Javier Aleman NP - 11/16/2023 11:01 AM RAG SHREDDER Thoracic/Lumbar Spinal Fusion Post-Operative Instructions s/p Hematoma Evacuation Questions: ?? For any post-operative questions, please contact Dr. Horace Mojica???s nurse, at [phone] via [employer]. Galina will view and respond to your [employer] questions sent to Dr. Vu. Wound Care: [...] you upon discharge. Please call Galina at [phone] if unable to keep appointment. A Hematology [...] it is best that you return to [facility] for your emergent care. Please call the emergency exchange at [phone] or toll free any time of the day or night on the daysthe office is closed, so that the emergent care can be initiated for you. Please follow these instructions for emergency calls: -During business hours (Sunday through Sunday 8am-4:30 PM except for holidays), call [phone]. The printing press machine operator will connect you with Dr. Vu???s nurse. Dr. Vu???s nurse reports all emergencies to Dr. Vu. -After business hours (after 4:30 PM and before 8:00am) you may call the Emergency Orthopaedic Exchange at [phone] or TOLL [phone]. The printing press machine operator health economist will contact Dr. Echeverria???s staff. IMPORTANT: Refills of medications need to be done during business hours-NO pain medication refills will be given over the phone after hours. Please call with any questions or concerns. We will be glad to assist you in any way during your recovery period. Dr. Vu???s Staff Galina Franco RN: [phone] SHREDDER SHREDDER documented in this encounter Medications at Time [...] 1 tablet (10 mg total) by mouth production team advisor before breakfast 4 cholecalciferol (VITAMIN D-3) 5,000 unit capsuleIndication s:Vitamin D Deficiency Take 1 capsule (5,000 Units total) by mouth every morning 4 coenzyme Q10 100 mg capsule Take 1 capsule (100 mg total) by mouth production team advisor before breakfast 4 cyclobenzaprine (FLEXERIL) 5 mg [...] Discharge to an IP Rehab facility [facility] documented in this encounter Progress Notes * Oneyda Farrell, OT - 11/16/2023 9:48 AM CST Occupational [...] not assigned to this patient, please call [phone]. 11/16/23 0948 General Session Type Treatment OT [...] Details: Pt will complete ADLs with spv SHREDDER * Nasir Manzanares MD - 11/16/2023 4:48 [...] 5/5 5/5 Wrist flexion (C7) 5/5 5/5 Yoga Instructor (C8) 5/5 5/5 Interosseous of hand (T1) [...] For susceptibility results, refer to accession number [id number] on the urine culture from 10/11/23 MICROBIOLOGY [...] Manzanares MD Department of Orthopaedic Surgery, PGY-2 [facility] [place] Please call with questions during daytime. See below for overnight issues. If you know the resident's name on the appropriate orthopaedic surgery team, please use [email or web address] to page resident directly. If questions arise and the appropriate resident can't be reached or you are calling overnight, please contact [phone] ([place]- 7:30 PM - 6:30 AM - Floor Resident) or [phone] (24 hours/day - Consult Resident) Cosigned by Marcial Vu MD at 11/21/2023 5:13 PM RAG SHREDDER SHREDDER SHREDDER * Javad Sánchez - 11/15/2023 1:32 PM CST Physical Therapy [...] treatment team and contact the PT or PRODUCTION EDITOR currently assigned to this patient. If a physical therapy clinician is not assigned to this patient, please call [phone]. 11/15/23 1332 PT Last Visit Session Type Treatment PT [...] Radha Dunlap, PT at 11/15/2023 4:06 PM RAG SHREDDER SHREDDER SHREDDER * Oneyda Farrell OT - 11/15/2023 8:03 [...] not assigned to this patient, please call [phone]. 11/15/23 0803 General Session Type Treatment OT [...] Details: Pt will complete ADLs with spv SHREDDER * Nasir Manzanares MD - 11/15/2023 7:49 [...] 5/5 5/5 Wrist flexion (C7) 5/5 5/5 Yoga Instructor (C8) 5/5 5/5 Interosseous of hand (T1) [...] WWP Lab/Diagnostic Review: Recent Labs Lab Units 11/14/23203811/13/23201011/13/23200611/08/23 1505 11/08/23 1151 SODIUM mmol/L -- -- [...] For susceptibility results, refer to accession number [id number] on the urine culture from 10/11/23 MICROBIOLOGY [...] down today and change to mepalex Ag boarddenis and nicholas Manzanares MD Department of Orthopaedic Surgery, PGY-2 [facility] [place] Please call with questions during daytime. See below for overnight issues. If you know the resident's name on the appropriate orthopaedic surgery team, please use [email or web address] to page resident directly. If questions arise and the appropriate resident can't be reached or you are calling overnight, please contact [phone] ([place]- 7:30 PM - 6:30 AM - Floor Resident) or [phone] (24 hours/day - Consult Resident) Cosigned by Marcial Vu MD at 11/15/2023 4:18 PM RAG SHREDDER SHREDDER SHREDDER * Jeremias Ibrahim RD - 11/14/2023 7:35 [...] chloride 0.9% traMADoL Recent Labs Lab Units 11/13/23200611/11/23213411/10/23 2313 SODIUM mmol/L 136 135 135 POTASSIUM PLASMA mmol/L 4.6 4.6 4.3 CHLORIDE mmol/L 102 103 104 CO2 mmol/L 26 24 24 BUN SERUM mg/dL 27* 22 22 CREATININE mg/dL 0.71* 0.81 0.82 [id number] mL/min/1.73 m2 >90 >90 >90 CALCIUM mg/dL [...] % Intake/Output Summary (Last 24 hours) at 11/14/2023 1941 Last data filed at 11/14/2023 1855 Gross per 24 hour Intake 740 ml Output 1900 ml Net -1160 ml Adult Malnutrition Scoring Tool (MST) What diet do you follow at home?: Nonspecific Have You Recently Lost Weight Without Trying?: No Have you been eating poorly because of a decreased appetite?: No (Takes Manuel) Malnutrition Screening Tool (MST) Score: 0 Within [...] Calorie Diet effective now Question Answer Comment ([facility]) Diet type Restricted Diabetic: Consistent Carbohydrate Other Restriction(s): High Protein/High Calorie 11/14/23 0939 11/09/23 2100 Bedtime snack At bedtime Comments: If bedtime BG is less than 100mg/dl, give patient a 15 gram carbohydrate snack. 11/09/23 1007 Allergies: Reviewed. IMPRESSION: [facility] diet started. Not sure [...] Stool patterns Jeremias Ibrahim RD LD CDE [phone]. Weekends [phone] SHREDDER * Javad Sánchez - 11/14/2023 2:23 PM [...] treatment team and contact the PT or PRODUCTION EDITOR currently assigned to this patient. If a physical therapy clinician is not assigned to this patient, please call [phone]. 11/14/23 1423 PT Last Visit Session Type Treatment PT [...] Radha Dunlap, PT at 11/14/2023 5:40 PM RAG SHREDDER SHREDDER SHREDDER * Aileen Dunlap OT - 11/14/2023 1:30 PM CST Occupational Therapy 11/14/23 1330 General OT Missed Visit Reason Other (comment) (To xray per RN; OT to f/u as scheduling and availability permits) SHREDDER * Marcial Yanez - 11/14/2023 9:34 AM CST 11/14/23 0900 Time Spent Start Time 0900 Stop Time 0920 Time Calculation (min) 20 min Patient Spiritual Assessment Spirituality Assessed Focus of Care Religion Affiliation Other (Comment) (no preference) Active in Orthodox No Clinical Encounter Type Visited With Patient Response Type (consult requested) Reason for visit Anxiety;Support Referral From Patient;Other (Comment) (Staff) Outcomes and Progress Preserve dignity and respect Achieved Demonstrating care and respect Achieved Establish rapport and connectedness Achieved Interventions Interventions Active listening (Patient advises feeling great with high optimism after session with PT and does not require spiritual care at this time.) [facility] Spiritual Care Note Resident Director Industrial Nursingpaz Yanez Triage: [phone] SHREDDER * Nasir Manzanares MD - 11/14/2023 5:08 [...] 5/5 5/5 Wrist flexion (C7) 5/5 5/5 Yoga Instructor (C8) 5/5 5/5 Interosseous of hand (T1) [...] For susceptibility results, refer to accession number [id number] on the urine culture from 10/11/23 MICROBIOLOGY [...] Manzanares MD Department of Orthopaedic Surgery, PGY-2 [facility] [place] Please call with questions during daytime. See below for overnight issues. If you know the resident's name on the appropriate orthopaedic surgery team, please use [email or web address] to page resident directly. If questions arise and the appropriate resident can't be reached or you are calling overnight, please contact [phone] ([place]- 7:30 PM - 6:30 AM - Floor Resident) or [phone] (24 hours/day - Consult Resident) Cosigned by Marcial Vu MD at 11/14/2023 9:34 AM RAG SHREDDER SHREDDER SHREDDER Associated attestation - Marcial Vu Jr., MD - 11/14/2023 9:34 AM RAG SHREDDER Attending Attestation I have seen and examined [...] x-rays when able. Marcial Vu Jr., MD Picture Enlarger Department of Orthopaedic Surgery Division of Spine Surgery [facility] [employer] [facility] [place], [place] Criminal Judge done by Fluency Direct; therefore, variances and inaccuracies may occur. * Javad Sánchez - 11/13/2023 1:29 PM CST Physical [...] treatment team and contact the PT or PRODUCTION EDITOR currently assigned to this patient. If a physical therapy clinician is not assigned to this patient, please call [phone]. 11/13/23 1329 PT Last Visit Session Type [...] Radha Dunlap, PT at 11/13/2023 5:19 PM RAG SHREDDER SHREDDER SHREDDER * Veronica Vivas, OT - 11/13/2023 12:54 PM CST Occupational [...] not assigned to this patient, please call [phone]. 11/13/23 1000 General Session Type Treatment OT [...] transfer 11/10/23 11/17/23 -- Goal Details: To/from [facility] with mod A Problem: OT Misc Start Date: 11/10/23 Goal Start Date Expected End Date End Date OT LTG - Misc 1 11/10/23 12/01/23 -- Goal Details: Pt will complete ADLs with spv SHREDDER * Marcial Yanez - 11/13/2023 10:06 AM CST 11/13/23 1000 Time Spent Start Time 0950 Stop Time 1000 Time Calculation (min) 10 min Patient Spiritual Assessment Spirituality Assessed Unable to assess Religion Affiliation Other (Comment) (no preference) Clinical Encounter Type Visited With Patient not available (with care team) Response Type (consult request) Reason for visit Support;Anxiety Referral From Patient [facility] Spiritual Care Note Resident Chaplain Marcial Yanez Triage: [phone] SHREDDER Nasir Ribeiro MD - 11/13/2023 7:01 AM CST Orthopaedic [...] 5/5 5/5 Wrist flexion (C7) 5/5 5/5 Yoga Instructor (C8) 5/5 5/5 Interosseous of hand (T1) [...] Lab/Diagnostic Review: Recent Labs Lab Units 11/12/23213311/11/23213711/11/23 2135 11/08/23 1505 11/08/23 1151 11/08/23 0418 [...] For susceptibility results, refer to accession number [id number] on the urine culture from 10/11/23 MICROBIOLOGY [...] Manzanares MD Department of Orthopaedic Surgery, PGY-2 [facility] [place] Please call with questions during daytime. See below for overnight issues. If you know the resident's name on the appropriate orthopaedic surgery team, please use [email or web address] to page resident directly. If questions arise and the appropriate resident can't be reached or you are calling overnight, please contact [phone] ([place]- 7:30 PM - 6:30 AM - Floor Resident) or [phone] (24 hours/day - Consult Resident) Cosigned by Marcial Vu MD at 11/13/2023 8:20 PM RAG SHREDDER SHREDDER SHREDDER Associated attestation - Marcial Vu Jr., MD - 11/13/2023 8:20 PM RAG SHREDDER Attending Attestation I have seen and examined [...] Awaiting floor bed. Marcial Vu Jr., MD Picture Enlarger Department of Orthopaedic Surgery Division of Spine Surgery [facility] [place], [place] Criminal Judge done by Fluency Direct; therefore, variances and [...] Marcial Vu MD at 11/12/2023 8:38 PM RAG SHREDDER SHREDDER SHREDDER * Shane Bowen OT - 11/12/2023 1:40 PM CST Occupational Therapy 11/12/23 1340 General OT Missed Visit Reason With other staff/receiving another service (Pt declined 2/2 just returning to bed from chair with nursing, PMR also in room having discussion with Pt and family members. OT will attempt at a later time/date.) SHREDDER * Radha Dunlap, PT - 11/12/2023 9:48 [...] treatment team and contact the PT or PRODUCTION EDITOR currently assigned to this patient. If a physical therapy clinician is not assigned to this patient, please call [phone]. 11/12/23 0948 PT Last Visit Session Type [...] Transfer Level of Assistance 1 Maximum Assist (post tensioning ironworker helper present with SBA - Min A due to risk of posterior LOB) Trials/Comments 1 Draw sheet used to for force production and to reduce shear Ambulation Ambulation No Other Comments Other PT Comments Pt tolerated greater than 45 min activity with PT and RN. Pt and with many appropriate questions and demonsntrate emerging insight into rehab course here at [facility] and at [facility]. 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 See below for overnight issues. If you know the resident's name on the appropriate orthopaedic surgery team, please use [email or web address] to page resident directly. If questions arise and the appropriate resident can't be reached or you are calling overnight, please contact [phone] ([place]- 7:30 PM - 6:30 AM - Floor Resident) or [phone] (24 hours/day - Consult Resident) Cosigned by Marcial Vu MD at 11/12/2023 8:33 PM RAG SHREDDER SHREDDER SHREDDER Associated attestation - Marcial Vu Jr., MD - 11/12/2023 8:33 PM RAG SHREDDER Attending Attestation I have seen and examined [...] evening versus tomorrow. Marcial Vu Jr., MD Picture Enlarger Department of Orthopaedic Surgery Division of Spine Surgery [facility], [place] Criminal Judge done by Fluency Direct; therefore, variances and [...] bags Responsible Team Irene Oropeza MD (du) [phone] Alice Dodge MD (senior) Octavio Matute MD (chief) Please contact the resident in bold with any questions. If it is after 6pm or you are unable to reach the residents listed, please page the Neurosurgery Call Pager at [phone]. Note created by Irene Oropeza MD on 11/12/2023 at 7:26 AM. Cosigned by Simeon Cuevas MD at 11/12/2023 2:24 PM RAG SHREDDER SHREDDER SHREDDER * Ata Marquez MD - 11/11/2023 11:07 [...] Glucose 207. Drain 1 01/09, Drain 2 10/02. PT/OT recommending rehab. Exam: RLE motor 2/5 [...] 5/5 5/5 Wrist flexion (C7) 5/5 5/5 Yoga Instructor (C8) 5/5 5/5 Interosseous of hand (T1) [...] For susceptibility results, refer to accession number [id number] on the urine culture from 10/11/23 MICROBIOLOGY [...] Marquez M.D. Department of Orthopaedic Surgery, PGY-3 [facility] [place] Dr. Ata Marquez dictating using Fluency Direct. Dictation variances may occur. Please call with questions during daytime. See below for overnight issues. If you know the resident's name on the appropriate orthopaedic surgery team, please use [email or web address], [email or web address] to page resident directly. If questions arise and the appropriate resident can't be reached or you are calling overnight, please contact [phone] ([place]- 7:30 PM - 6:30 AM - Floor Resident) or [phone] (24 hours/day - Consult Resident) Cosigned by Marcial Vu MD at 11/12/2023 8:33 PM RAG SHREDDER SHREDDER SHREDDER Associated attestation - Marcial Vu Jr., MD - 11/12/2023 8:33 PM RAG SHREDDER Images from the original note were not [...] Rehab PM&R consult Marcial Vu Jr., MD Picture Enlarger Department of Orthopaedic Surgery Division of Spine Surgery [place], [place] * Marcial Vu MD - 11/11/2023 [...] Rehab PM&R consult Marcial Vu Jr., MD Picture Enlarger Department of Orthopaedic Surgery Division of Spine Surgery [place], [place] SHREDDER * Artie Real MD PhD - 11/11/2023 [...] Drains x2 bile bags Responsible Team Farhan ([phone]) Aum Please contact the resident in bold with any questions. If it is after 6pm or you are unable to reach the residents listed, please page the Neurosurgery Call Pager at [phone]. Note created by Artie Real MD PhD on 11/11/2023 at 9:02 AM. Cosigned by Simeon Cuevas MD at 11/11/2023 11:19 AM RAG SHREDDER SHREDDER SHREDDER * Javad Sow, PT - 11/10/2023 2:36 [...] better Prior Function Prior Function Level of [place]: Independent functional transfers, Independent with ambulation Lives [...] -- Goal Details: SBA for 5 minutes SHREDDER * Leila Vela, OT - 11/10/2023 2:12 [...] walker Prior Function Prior Function Level of [place]: Independent with ADLs, Independent functional transfers, Independent with ambulation, Needs assistance with homemaking Lives With: Spouse Receives Help From: Spouse/Significant other, Family (methods time analyst assist available) Driving: Yes (has not driven for several weeks) ADL Assistance: Independent (pts provided spv in the last few weeks) Instrumental ADL (IADL) Assistance: (completed by /family) 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 SHREDDER * Ata Marquez MD - 11/10/2023 11:19 [...] 8.6 WBC 10.9 Cr 0.99. Drain 1 03/11, Drain 2 . IVC filter placed. CT [...] 5/5 5/5 Wrist flexion (C7) 5/5 5/5 Yoga Instructor (C8) 5/5 5/5 Interosseous of hand (T1) [...] For susceptibility results, refer to accession number [id number] on the urine culture from 10/11/23 MICROBIOLOGY [...] Marquez M.D. Department of Orthopaedic Surgery, PGY-3 [facility] [place] Dr. Ata Marquez dictating using Fluency Direct. Dictation variances may occur. Please call with questions during daytime. See below for overnight issues. If you know the resident's name on the appropriate orthopaedic surgery team, please use [email or web address] to page resident directly. If questions arise and the appropriate resident can't be reached or you are calling overnight, please contact [phone] (Sun- 7:30 PM - 6:30 AM - Floor Resident) or [phone] (24 hours/day - Consult Resident) Cosigned by Marcial Vu MD at 11/12/2023 8:38 PM RAG SHREDDER SHREDDER SHREDDER * Alice Dodge MD - 11/10/2023 7:11 [...] bags Responsible Team Irene Oropeza MD (du) [phone] Alice Dodge MD (senior) Octavio Matute MD (chief) Please contact the resident in bold with any questions. If it is after 6pm or you are unable to reach the residents listed, please page the Neurosurgery Call Pager at [phone]. Note created by Alice Dodge MD on 11/10/2023 at 7:12 AM. Cosigned by Simeon Cuevas MD at 11/10/2023 11:35 AM RAG SHREDDER SHREDDER SHREDDER * Marcial Vu MD - 11/09/2023 12:45 [...] out of bed Marcial Vu Jr., MD Picture Enlarger Department of Orthopaedic Surgery Division of Spine Surgery [facility] [place], [place] SHREDDER * Irene Oropeza MD - 11/09/2023 10:03 [...] per ortho spine Drains x2 bile bags (, ) - per ortho spine Responsible Team Irene Oropeza MD (du) [phone] Alice Dodge MD (senior) Octavio Matute MD (chief) Please contact the resident in bold with any questions. If it is after 6pm or you are unable to reach the residents listed, please page the Neurosurgery Call Pager at [phone]. Note created by Irene Oropeza MD on 11/09/2023 at 10:03 AM. Cosigned by Simeon Cuevas MD at 11/10/2023 11:35 AM RAG SHREDDER SHREDDER SHREDDER * Vicki Rehman NP - 11/09/2023 9:22 AM CSTAssociated Order(s): Critical Care Post-Procedure Diagnose(s): Paralysis of both lower limbs (CMS/HCC) (HCC) ICU Progress Note Team: Blue GREGORIA Subjective Hira Evans is a 73 y.o. [...] with walker since 10/30/23 discharge. Transferred to [facility], MRI with longitudinally extending dorsal epidural and [...] Intake/Output: Intake/Output Summary (Last 24 hours) at 11/09/2023922 Last data filed at 11/09/202317 Gross per 24 hour Intake 3435.9 ml [...] AM Result Value Ref Range Product code I2081F16 Unit Number [id number] Product Blood Type OPOS Dispense Status ISSUED Product code T0266M17 Unit Number [id number] Product Blood Type OPOS Dispense Status RETURNED Product code L8234U94 Unit Number [id number] Product Blood Type OPOS Dispense Status ISSUED Product code S5871H73 Unit Number [id number] Product Blood Type OPOS Dispense Status ISSUED Prepare plasma: 4 Units Collection Time: 11/08/23 2:28 AM Result Value Ref Range Product code T9446Q35 Unit Number [id number] Product Blood Type OPOS Dispense Status RETURNED Product code K8694P82 Unit Number [id number] Product Blood Type OPOS Dispense Status RETURNED Product code F3908L02 Unit Number [id number] Product Blood Type OPOS Dispense Status RETURNED Product code T8819Q68 Unit Number [id number] Product Blood Type OPOS Dispense Status ISSUED [...] Problem: Paralysis of both lower limbs (CMS/HCC) ([facility]) Plan of Care: NEURO: #Acute on chronic [...] plan with the patient's team and other medical/pmo consultant staff. This time was in addition [...] Silver Brown MD at 11/09/2023 4:24 PM RAG SHREDDER SHREDDER SHREDDER * Nasir Manzanares MD - 11/09/2023 8:15 [...] 5/5 5/5 Wrist flexion (C7) 5/5 5/5 Yoga Instructor (C8) 5/5 5/5 Interosseous of hand (T1) [...] For susceptibility results, refer to accession number [id number] on the urine culture from 10/11/23 MICROBIOLOGY [...] the appropriate orthopaedic surgery team, please use [email or web address] to page resident directly. If questions arise and the appropriate resident can't be reached or you are calling overnight, please contact [phone] ([place]- 7:30 PM - 6:30 AM - Floor Resident) or [phone] (24 hours/day - Consult Resident) Cosigned by Marcial Vu MD at 11/12/2023 8:37 PM RAG SHREDDER SHREDDER SHREDDER Associated attestation - Marcial Vu Jr., MD - 11/12/2023 8:37 PM RAG SHREDDER Images from the original note were not [...] out of bed Marcial Vu Jr., MD Picture Enlarger Department of Orthopaedic Surgery Division of Spine Surgery [place], [place] * Marcial Vu MD - 11/08/2023 [...] questions or concerns. Marcial Vu Jr., MD Picture Enlarger Department of Orthopaedic Surgery Division of Spine Surgery [place], [place] [phone] SHREDDER * Nuvia Cantu NP - 11/08/2023 6:15 [...] with walker since 10/30/23 discharge. Transferred to [facility], MRI with longitudinally extending dorsal epidural and [...] hours: Intake/Output Summary (Last 24 hours) at 11/08/20231917 Last data filed at 11/08/2023 1600 Gross [...] US Vein Duplex Lower Extremity Bilateral Complete [facility] - Department of Vascular Surgery, Vascular Laboratory [address] [place] [address] Lower Extremity Venous Ultrasound Report Preliminary Patient Name: HIRA EVANS : 1950 (73y 4m) Study Date: 11/08/2023 2:22:46 PM Gender: M Tech: VT Location: [id number] Ref Provider: VICKI REHMAN Quality: Adequate Order [...] INDICATIONS: recent bilateral PE - FINDINGS: Performing Floor Worker Well Service: Nola Walker RVT, RDMS. Bilateral: Venous Doppler [...] performed. ATTESTATION: Electronically Signed By: 2023-11-08 15:05:[address] Cervical Thoracic Lumbar Spine WO Contrast [...] it. Electronically signed by: Kendrick House M.D. Invasive lines/tubes/drains: Peripheral IV 11/08/23 [...] (c) Other (Comment) Size (Fr.): (c) Drain [place] Size (mL): 266 mL Number of Sutures Placed: 1 Number of days: 0 Closed/Suction/Open Drain 2 Right Back (Active) Placement Date/Time: 11/08/23 0940 Inserted by: Dr. Vu Tube Number: 2 Orientation: Right Location: Back Drain Tube Type: (c) Size (Fr.): (c) Drain [place] Size (mL): 266 mL Number of Sutures [...] Problem: Paralysis of both lower limbs (CMS/HCC) ([facility]) Plan by system: Neurologic: Overall CAM-ICU: Positive (11/08/23 1500) #Acute on chronic pain - Continue home Gabapentin 300 mg TID - Scheduled Acetaminophen 1,000 mg q6hr - Continue home Cyclobenzaprine 5 mg TID PRN - Start Lidocaine gtt, Lidocaine level 11/09 2300 - Increase PRN Oxycodone to 10 [...] Plan with ICU Fellow and ICU Attending Nuvia Cantu AGACNP-BC 11/08/23 7:18 PM Critical Care Performed by: [...] plan with the ICU team and other medical/pmo consultant staff, making frequent assessments and decisions [...] Dmitry Neal MD at 11/11/2023 4:21 AM RAG SHREDDER SHREDDER SHREDDER * Nasir Manzanares MD - 11/08/2023 2:16 [...] 5/5 5/5 Wrist flexion (C7) 5/5 5/5 Yoga Instructor (C8) 5/5 5/5 Interosseous of hand (T1) [...] Marcial Vu MD at 11/08/2023 4:24 PM RAG SHREDDER SHREDDER SHREDDER * Marcial Vu MD - 11/08/2023 1:38 [...] 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 Marcial Vu Jr., MD Picture Enlarger Department of Orthopaedic Surgery Division of Spine Surgery [employer] [facility] [employer] [facility] [employer] [place], [place] SHREDDER SHREDDER * Marcial Vu MD - 11/07/2023 10:52 [...] cauda equina compression. Marcial Vu Jr., MD Picture Enlarger Department of Orthopaedic Surgery Division of Spine Surgery [facility] [place], [place] SHREDDER SHREDDER documented in this encounter H&P Notes * Vicki Rehman NP - 11/08/2023 12:12 PM CSTAssociated Order(s): Critical [...] with walker since 10/30/23 discharge. Transferred to [facility], MRI with longitudinally extending dorsal epidural and [...] 1 tablet (10 mg total) by mouth production team advisor before breakfast cholecalciferol (VITAMIN D-3) 5,000 unit capsule Take 1 capsule (5,000 Units total) by mouth every morning coenzyme Q10 100 mg capsule Take 1 capsule (100 mg total) by mouth production team advisor before breakfast cyclobenzaprine (FLEXERIL) 5 mg tablet [...] mg capsule Take 1 tablet by mouth production team advisor before breakfast gabapentin (NEURONTIN) 300 mg capsule [...] AM Result Value Ref Range Product code K0967V11 Unit Number [id number] Product Blood Type OPOS Dispense Status ISSUED Product code F0022T38 Unit Number [id number] Product Blood Type OPOS Dispense Status RETURNED Product code I1258J24 Unit Number [id number] Product Blood Type OPOS Dispense Status ISSUED Product code M6752A38 Unit Number [id number] Product Blood Type OPOS Dispense Status ISSUED Prepare plasma: 4 Units Collection Time: 11/08/23 2:28 AM Result Value Ref Range Product code P2373W64 Unit Number [id number] Product Blood Type OPOS Dispense Status RETURNED Product code A8658X96 Unit Number [id number] Product Blood Type OPOS Dispense Status RETURNED Product code V9592H18 Unit Number [id number] Product Blood Type OPOS Dispense Status RETURNED Product code N6291Q93 Unit Number [id number] Product Blood Type OPOS Dispense Status ISSUED [...] AM Result Value Ref Range Product code I0266R87 Unit Number [id number] Product Blood Type OPOS Dispense Status ISSUED Product code G4931I17 Unit Number [id number] Product Blood Type OPOS Dispense Status RETURNED Product code U1594F82 Unit Number [id number] Product Blood Type OPOS Dispense Status ISSUED Product code U5297Z43 Unit Number [id number] Product Blood Type OPOS Dispense Status ISSUED Prepare plasma: 4 Units Collection Time: 11/08/23 2:28 AM Result Value Ref Range Product code X2330O65 Unit Number [id number] Product Blood Type OPOS Dispense Status RETURNED Product code Z1750T54 Unit Number [id number] Product Blood Type OPOS Dispense Status RETURNED Product code H0985H46 Unit Number [id number] Product Blood Type OPOS Dispense Status RETURNED Product code E0720Y27 Unit Number [id number] Product Blood Type OPOS Dispense Status ISSUED [...] Problem: Paralysis of both lower limbs (CMS/HCC) ([facility]) Plan of Care: NEURO: #Acute on chronic [...] by: Vicki Rehman NP CRITICAL CARE: Team: MILADY CHU Shift: AM Level of Billing: Critical Care [...] plan with the ICU team and other medical/pmo consultant staff, making frequent assessments and decisions [...] Silver Brown MD at 11/08/2023 5:59 PM RAG SHREDDER SHREDDER SHREDDER documented in this encounter Procedure Notes * Mckay Castellanos RN - 11/11/2023 5:24 PM CST Vascular Access Nurse: Procedure Note Summary of treatment provided to patient today is as follows : . Bedside Procedure Time out/Checklist (last 4 hours) Pre-Op Checklist Row Name 11/11/23 1600 Patient Preparation Temp 36.7 ??C (98 ??F) -KR User Jones (r) = Recorded By, (t) = Taken By, (c) = Cosigned By Initials Name Melissa Hutton manager pacu Access Documentation (last 4 hours) [facility] Additional Procedures Row Name 11/11/23 1722 Procedures Line Type Peripheral -MF Time in 1705 -MF Time out 172 -MF Time Calculation (min) 20 min -MF [...] Local Anesthetic: None -ZD Technique: Anatomical landmarks -ZD Inserted by: Lokesh Gaines RN -ZD Insertion [...] By, (c) = Cosigned By Initials Name Lucio Lopez RN KR Rodenborn, Kathleen M., RN KM Maryan, Kyle Anthony, MD MF Fu, Manxiang, RN MT Trimble, Morgan Elizabeth, RN Plan Follow up Mckay Castellanos RN SHREDDER documented in this encounter Consult Notes * Tyrone Martínez MD - 11/13/2023 12:47 AM CSTAssociated Order(s): CONSULT TO PM&R PHYSICIAN Patient Name: HIRA EVANS Medical Record Number (MRN): [id number] Date of (): 1950 Encounter Date: 11/07/2023 [...] CA s/p prostatectomy, who was admitted to [facility] on 11/07/2023 forsudden onset BLE numbness and [...] elbow flexion, elbow extension, wrist extension, and online activist LUE: 5/5 with shoulder abduction, elbow flexion, elbow extension, wrist extension, and online activist RLE:1/5 with hip flexion, 0/5 knee extension, [...] CA s/p prostatectomy, who was admitted to [facility] on 11/07/2023 for sudden onset BLE numbness [...] evaluated by and continuing to work with PT/OT/COOKING APPLIANCE REPAIR TECHNICIAN for assessment of current function and discharge [...] Yarely Ortiz MD at 11/15/2023 9:55 PM RAG SHREDDER SHREDDER SHREDDER Associated attestation - Yarely Ortiz MD - 11/15/2023 9:55 PM RAG SHREDDER ATTENDING DOCUMENTATION I have seen and examined [...] personally spent minutes on this patient's case: [id number]-vc-[id number] time consisting of patient interview and evaluation/examination, [...] ACUTE PAIN SERVICE CONSULT NOTE Hira Evans, [id number] Reason for Consult: Intravenous Lidocaine Infusion for pain Requesting Provider: Horace Chief Complaint: Back and Chest pain Subjective Hira Evans is a 73 y.o. year old male referred by Dr. Vu for consultation regarding his back and chest pain. He has a history of HTN, lumbar radiculopathy s/p L4-5 decompression 10/23/23, prostate cancer who presented to [facility] 11/08/23 with acute cauda equina syndrome now [...] 1 tablet (10 mg total) by mouth production team advisor before breakfast cholecalciferol (VITAMIN D-3) 5,000 unit capsule Take 1 capsule (5,000 Units total) by mouth every morning coenzyme Q10 100 mg capsule Take 1 capsule (100 mg total) by mouth production team advisor before breakfast cyclobenzaprine (FLEXERIL) 5 mg tablet [...] mg capsule Take 1 tablet by mouth production team advisor before breakfast gabapentin (NEURONTIN) 300 mg capsule [...] glucagon hydrALAZINE ondansetron prochlorperazine sodium chloride 0.9% @[facility]@ OBJECTIVE Vitals: 24hr Min/Max: Temp Min: 36.4 [...] MD Acute Pain Service Department of Anesthesiology [facility], [facility] If you have questions or concerns, please contact the [facility] printing press machine operator to page the Pain Management service. After hours, this is not an in-house pager, please reserve non-urgent calls from [phone]. We are happy to address emergent calls 28/05. 11/12/23 10:25 AM For patients or family members viewing this note through [employer]zz[employer] programs: This note was written as a [...] Akbar MD PhD at 11/13/2023 10:35 AM RAG SHREDDER SHREDDER SHREDDER Associated attestation - Salome Akbar MD PhD - 11/13/2023 10:35 AM RAG SHREDDER I have seen and examined the patient on 11/12/2023. I agree with the findings and plan of care as documented in the resident's/fellow's note. Discussed appropriate oxycodone use and his low risk of addiction. He agrees to use it to facilitate therapy. * Damarsi Maxwell LCSW - 11/09/2023 10:29 AM CSTAssociated Order(s): IP CONSULT TO SOCIAL WORK Social work received an order for need for complex higher level or care or terminal operations supervisor planning for care . Patient is not [...] work needs at this time. GEN Munoz, COLOR STRAINER SHREDDER SHREDDER * Annette Calero MD - 11/08/2023 12:58 [...] Annette Calero MD Hematology & Oncology Fellow [facility] For questions about this consult, please contact: Rae Weller, inpatient Hematology nurse practicioner [phone] Sunday -- Sunday, 8 AM to 5 PM (except holidays) Hematology consult pager: [phone] Reason for Consult: Recent bilateral PE c/b epidural hematoma. Consult for risk stratification of anticoagulation. Requesting Provider: Marcial Vu Fo* HPI: Hira Evans is a 73 y.o. male with distant hx of prostate CA (s/p prostatectomy 2008), melanoma (s/p resection 2005), HTN, GERD, CKD, with recent admission for complicated UTI, s/p PCN tube placement (10/13/23) exchanged for stent (12/14/23), after which he underwent posterior spinal fusionL4-L5 [...] lower limbs ([facility]) ([facility]) 11/07/2023 Pulmonary embolism (HCC) 10/26/2023 S/P spinal fusion 10/23/2023 Cardiac arrest ([facility]) 10/23/2023 Left perinephric collection, 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 10/15/2023 Ureteral colic 10/13/2023 UTI (urinary tract infection) 10/13/2023 Hydronephrosis with urinary obstruction due to renal calculus 10/12/2023 Lumbar radiculopathy 10/08/2023 Gross hematuria 10/18/2022 Bladder neck obstruction 10/17/2022 Lesion of urinary bladder 10/17/2022 Prostate cancer ([facility]) 10/17/2022 HTN (hypertension) 10/10/2021 Risk factors for obstructive sleep apnea 10/10/2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 Presence of right artificial knee joint [...] 1 tablet (10 mg total) by mouth production team advisor before breakfast Fidelia Perdue MD cholecalciferol (VITAMIN D-3) 5,000 unit capsule Take 1 capsule (5,000 Units total) by mouth every morning Fidelia Perdue MD coenzyme Q10 100 mg capsule Take 1 capsule (100 mg total) by mouth production team advisor before breakfast Fidelia Perdue MD cyclobenzaprine (FLEXERIL) [...] mg capsule Take 1 tablet by mouth production team advisor before breakfast Fidelia Perdue MD gabapentin (NEURONTIN) [...] under the skin once a week Sunday04/05/23 ProviderFidelia MD omeprazole (PriLOSEC) 20 mg capsule Take [...] AM Result Value Ref Range Product code G4892O51 Unit Number [id number] Product Blood Type OPOS Dispense Status ISSUED Product code J0403A17 Unit Number [id number] Product Blood Type OPOS Dispense Status RETURNED Product code N2263L45 Unit Number [id number] Product Blood Type OPOS Dispense Status ISSUED Product code P5613I30 Unit Number [id number] Product Blood Type OPOS Dispense Status ISSUED Prepare plasma: 4 Units Collection Time: 11/08/23 2:28 AM Result Value Ref Range Product code A5524I17 Unit Number [id number] Product Blood Type OPOS Dispense Status RETURNED Product code Z7892R16 Unit Number [id number] Product Blood Type OPOS Dispense Status RETURNED Product code W2272J85 Unit Number [id number] Product Blood Type OPOS Dispense Status RETURNED Product code J5561N73 Unit Number [id number] Product Blood Type OPOS Dispense Status ISSUED [...] bone grafting. Gas in the soft tissues with adjacent confluent area of soft tissue attenuation can be seen in thesetting of epidural abscess. Recommend correlation with same day same-day MR report. Dictated by: Hernán Cárdenas M.D. Peripheral Blood smear: NA Assessment and Plan: Assessment and Plan is now at the top of the note. Cosigned by Josiane Mcgrath MD at 11/09/2023 9:45 AM RAG SHREDDER SHREDDER SHREDDER SHREDDER Associated attestation - Josiane Mcgrath MD - 11/09/2023 9:45 AM RAG SHREDDER I have seen and examined the patient [...] was evaluated within 30 minutes of consultation. Horace/Dheeraj Dx: cauda equina Relevant PMHx: postop cardiac [...] he was directed to go to the [facility] ED, from which he was life flighted to [facility]. 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 Hand dominance: right [...] 1 tablet (10 mg total) by mouth production team advisor before breakfast Fidelia Perdue MD cholecalciferol (VITAMIN D-3) 5,000 unit capsule Take 1 capsule (5,000 Units total) by mouth every morning Fidelia Perdue MD coenzyme Q10 100 mg capsule Take 1 capsule (100 mg total) by mouth production team advisor before breakfast Fidelia Perdue MD cyclobenzaprine (FLEXERIL) [...] mg capsule Take 1 tablet by mouth production team advisor before breakfast Fidelia Perdue MD gabapentin (NEURONTIN) [...] with dinner 10/30/23 11/29/23 Rafael Rodriguez NP No Known Allergies Social History Tobacco [...] % Most Recent: Vitals: 11/07/23 2150 11/07/23 2155 01/03/24 2200 01/03/24 2215 BP: 135/80 134/99 137/88 137/81 Pulse: 81 [...] extension 5/5 5/5 Wrist flexion 5/5 5/5 Yoga Instructor 5/5 5/5 Interosseous of hand 5/5 5/5 [...] imaging. MRI contacted regarding criticalnature of imaging, operator technician conferred that per [facility] protocol there is no spine emergency and that only acute stroke qualifies for MRI. operator technician additionally stated if a patient is stable enough to undergo a scan as long as an MRI, they don't need emergent surgery. Again emphasized the urgent nature of scan and described sudden onset paralysis. operator technician stated patient would be next on scanner [...] surgery team,please use the Directory Search at [email or web address] to page resident directly. If questions arise and the appropriate resident can't be reached or you are calling overnight, please contact [phone] (Sun- 7:30 PM - 6:30 AM - Floor Resident) or [phone] (24 hours/day - Consult Resident) Cosigned by Marcial Vu MD at 11/08/2023 3:32 AM RAG SHREDDER SHREDDER SHREDDER Associated attestation - Marcial Vu Jr., MD - 11/08/2023 3:32 AM RAG SHREDDER I personally examined Mr. Evans at the [...] RN and agree with the documented assessment. SHREDDER * Kasey Emmanuel RN - 11/09/2023 4:03 PM C[place] [address] from 4413 at 1545. Two nurses teamed up to successfully complete a head to toeskin assessment. The findings of this resulted in the following: Blanchable redness on bottom. See full assessment for skin details. The appropriate goals and interventions have been implemented and documented. Will continue to monitor closely. SHREDDER * Niyah Anderson RN - 11/07/2023 8:15 PM CST Verbal order from Dr. Vu- Dr. uV would like to be notify on patients arrival- [phone] MRI total spine without contrast Bilateral lower extremity venous doppler Consult to ortho-spine SHREDDER documented in this encounter ED Notes * [...] List Diagnosis Date Noted ??? Pulmonary embolism ([facility]) 10/26/2023 ??? S/P spinal fusion 10/23/2023 ??? Cardiac arrest ([facility]) 10/23/2023 ??? Left perinephric collection, 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 10/15/2023 ??? Ureteral colic 10/13/2023 ??? UTI (urinary tract infection) 10/13/2023 ??? Hydronephrosis with urinary obstruction due to renal calculus 10/12/2023 ??? Lumbar radiculopathy 10/08/2023 ??? Gross hematuria 10/18/2022 ??? Bladder neck obstruction 10/17/2022 ??? Lesion of urinary bladder 10/17/2022 ??? Prostate cancer ([facility]) 10/17/2022 ??? HTN (hypertension) 10/10/2021 ??? Risk factors for obstructive sleep apnea 10/10/2021 ??? Failed total knee arthroplasty ([facility]/HCC) ([facility]) 08/07/2019 ??? Presence of right artificial knee joint 10/25/2018 ??? Primary osteoarthritis of left knee 10/25/2018 ??? Localized adiposity 07/17/2018 ??? Knee pain 10/24/2016 Past Medical History: Diagnosis Date ??? Allergic rhinitis ??? Arthritis OA ??? Cancer (CMS/HCC) (HCC) prostate and melonomia ??? Gastric reflux ??? GERD (gastroesophageal reflux disease) ??? History of melanoma ??? Hypertension ??? Kidney stone ??? Personal history of prostate cancer ??? Pneumonia ??? Seasonal allergies Past Surgical History: Procedure Laterality Date ??? FL UPPER GI AIR CONTRAST W KUB Left 09/21/2023 ??? JOINT REPLACEMENT Right 2014 right knee replacement ??? MELANOMA RESECTION Right 2006 right flank ??? PERCUTANEOUS NEPHROSTOMY PCN LEFT [...] and Affect: Mood normal. Behavior: Behavior normal. MDM Medical Decision Making Hira Gee is a [...] Ayala MD Time: 11/07 2238 Comment: Called [facility] MRI. Patient is on the schedule for 2329 and is the next patient. By: Deisy Ayala MD Time: 11/08 56 Comment: Ortho spine requested CT of CT and L-spine non con. They are planning for OR By: Abdi Dwyer MD Paralysis of both lower limbs (CMS/HCC) ([facility]) Deisy Ayala MD Resident 11/07/23 199 Cosigned by Temo Hampton MD at 11/09/2023 12:50 AM RAG SHREDDER SHREDDER SHREDDER Associated attestation - Temo Hampton MD - 11/09/2023 12:50 AM RAG SHREDDER I have seen and examined the patient [...] pt was walking with walker. A&O4, VSS. SHREDDER SHREDDER * Jessenia Fox RN - 11/07/2023 9:13 PM CST Bed: [facility] Expected date: 11/07/23 Expected time: 12:00 AM Means of arrival: Medical Flight Comments: Jesseina Fox RN 11/07/232112 SHREDDER documented in this encounter Miscellaneous Notes * [...] Will remain free from infection Outcome: Progressing SHREDDER * Plan of Care - Josiane Blakely RN - 11/16/2023 9:02 AM CST 11/16/23 0902 Communications Important Message from Medicare notice given to patient? Yes IM letter completed with patient/customer service representative teacher at bedside. Patient/customer service representative teacher were informed ofthe planned discharge date, the date the beneficiary's financial liability begins, the beneficiary's appeal rights, and how and when to initiate an appeal. Patient/customer service representative teacher were provided a copy of the IM letter and IM letter was placed in unit???s designated medical record bin to be uploaded into the patient???s chart. SHREDDER * Plan of Care - Joann Hurtado RN - 11/16/2023 6:16 AM RAG SHREDDER Goals: Problem: Activity: Goal: Mobility will improve [...] stable. Labs drawn. Patient slept some overnight. SHREDDER * Plan of Care - Radha Hancock [...] Patient's painwell controlled. Will continue to monitor. SHREDDER * Plan of Care - Josiane Blakely RN - 11/15/2023 8:10 AM CST Per Medical Chart/Rounds/IDR: Continues to do well with therapy. C/T/L spine XR completed yesterday. Taper dexamethsone for the next 3 days, wound vac change taken down today ADD: pending insurance authorization Plan & referrals made/in place: [facility] - [facility] following for IPR admission, CM updated daniel Mccall on discharge plan Support following discharge: spouse Val Evans [phone]/facility Transportation: to be arranged prior to discharge F/U Appointments: to be scheduled by primary team Patient's Identified Problem/Goal Problem: Ensure acute medical needs are met and that patient has a safe discharge plan. Goal: Secure a discharge plan that patient/family are agreeable with and ensure patient has continuum of care. Patient and/or family are agreeable with plan. manager icu will continue to follow and assist with discharge planning as needed. If any further discharge needs arise, please contact the covering rn case mgr. SHREDDER * Plan of Care - Joann Hurtado RN - 11/15/2023 7:08 AM RAG SHREDDER Goals: Problem: Activity: Goal: Mobility will improve [...] stable. Neuro checks unchanged. Patient rested overnight. SHREDDER * Plan of Care - Radha Hancock RN - 11/14/2023 2:32 PM CST Goals: [...] and is A&Ox4. Will continue to monitor. SHREDDER * Plan of Care - Josiane Blakely RN - 11/14/2023 9:18 AM CST Per Medical Chart/Rounds/IDR: Patient not medically ready for discharge. POD 6. Continues to work on transfers with PT and sitting up in chair. TTF. Wound vac down tomorrow, POD 7. ADD: 11/15 Plan & referrals made/in place: [facility] following for admission, LUIS updated daniel Mccall on discharge plan Support following discharge: spouse Val Evans [phone]/facility Transportation: to be arranged prior to discharge F/U Appointments: to be scheduled by primary team Patient's Identified Problem/Goal Problem: Ensure acute medical needs are met and that patient has a safe discharge plan. Goal: Secure a discharge plan that patient/family are agreeable with and ensure patient has continuum of care. Patient and/or family are agreeable with plan. manager icu will continue to follow and assist with discharge planning as needed. If any further discharge needs arise, please contact the covering rn case mgr. SHREDDER * Plan of Care - Son Brown [...] Will remain free from infection Outcome: Progressing SHREDDER * Plan of Deny - Pau Clifford RN - 11/13/2023 2:18 [...] at this time. Plan of care ongoing. SHREDDER * Plan of Care - Joisane Blakely RN - 11/12/2023 11:51 AM CST Per Medical Chart/Rounds/IDR: Patient not medically ready for discharge. POD 4 s/p T5-L5 laminectomies w/hematoma evacuation and lumbar dural repair. Drain management. Neuro rehab PMR c/s pending. TLSO brace when OOB. iVac x 7 days. ADD: pending update from primary team with this information Plan & referrals made/in place: Current therapy recs for IPR. Patient/spouse Val Bryanlinda [phone] prefer [facility] - electronic referral sent Support following discharge: spouse Val Evans [phone]/facility Transportation: to be arranged prior to discharge F/U Appointments: to be scheduled by primary team Patient's Identified Problem/Goal Problem: Ensure acute medical needs are met and that patient has a safe discharge plan. Goal: Secure a discharge plan that patient/family are agreeable with and ensure patient has continuum of care. Patient and/or family are agreeable with plan. manager icu will continue to follow and assist with discharge planning as needed. If any further discharge needs arise, please contact the covering rn case mgr. SHREDDER * ECIN Note - Josiane Blakely RN [...] Meds/Most Recent Administrations protamine injection 40 mg [[id number]] Ordering Provider: Lex Carrillo III, MD Status: Completed (Past End Date/Time) Ordered On: 11/08/2399 Starts/Ends: 11/08/23100 - 11/08/23134 Ordered Dose (Remaining/Total): 40 mg (0/1) Route: intravenous Frequency: Once Ordered Rate/Order Duration: -- / -- Admin Instructions: Rate not to exceed 50 mg over 10 minutes Line Med Link Info Comment Peripheral IV 11/07/23 20 G Left Antecubital 11/08/23134 by Jessenia Fox RN -- Timestamps Action Dose Route Other Information 11/08/23134 Given 40 mg intravenous Performed by: Jessenia Fox RN Scanned Package: 87711-171-32 acetaminophen (TYLENOL) tablet 1,000 mg [[id number]] Ordering Provider: Vicki Rehman NP Status: Dispensed Ordered On: 11/08/23 1141 Start: 11/08/23 1215 Ordered Dose (Remaining/Total): 1,000 mg (--/--) Route: oral Frequency: Every 6 hours Ordered Rate/Order Duration: -- / -- Timestamps Action Dose Route Other Information 11/12/23 1130 Given 1,000 mg oral Performed by: Portillo Cordero RN Scanned Package: 4686-7757-58, 1857-6273-62 dexAMETHasone (DECADRON) 4 mg/mL injection 4 mg [[id number]] Ordering Provider: Vicki Rehman NP Status: Dispensed [...] Performed by: Portillo Cordero RN Scanned Package: 38349-717-[address] (PROTONIX) extended release tablet 40 mg [[id number]] Ordering Provider: Vicki Rehman NP Status: Dispensed Ordered On: 11/08/23 1204 Start: 11/08/23 1245 Ordered Dose (Remaining/Total): 40 mg (--/--) Route: oral Frequency: Daily Ordered Rate/Order Duration: -- / -- Admin Instructions: Do not crush, chew, cut, dissolve, open or otherwise manipulate tablet/capsule. Timestamps Action Dose Route Other Information 11/12/23 0857 Given 40 mg oral Performed by: Portillo Cordero RN Scanned Package: 87207-404-44 levETIRAcetam (KEPPRA) tablet 1,000 mg [[id number]] Ordering Provider: Vicki Rehman NP Status: Dispensed Ordered On: 11/08/23 1204 Start: 11/08/23 1245 Ordered Dose (Remaining/Total): 1,000 mg (--/--) Route: oral Frequency: 2 times daily Ordered Rate/Order Duration: -- / -- Timestamps Action Dose Route Other Information 11/12/23 0856 Given 1,000 mg oral Performed by: Portillo Cordero RN Scanned Package: 24745-695-07 gabapentin (NEURONTIN) capsule 300 mg [[id number]] Ordering Provider: Vicki Rehman NP Status: Dispensed Ordered On: 11/08/23 1204 Start: 11/08/23 1600 Ordered Dose (Remaining/Total): 300 mg (--/--) Route: oral Frequency: 3 times daily Ordered Rate/Order Duration: -- / -- Timestamps Action Dose Route Other Information 11/12/23 0857 Given 300 mg oral Performed by: Portillo Cordero RN Scanned Package: 29844-426-60 hydrALAZINE (APRESOLINE) injection 10 mg [[id number]] Ordering Provider: Vicki Rehman NP Status: Dispensed Ordered On: 11/08/23 1248 Start: 11/08/23 1248 Ordered Dose (Remaining/Total): 10 mg (--/--) Route: intravenous Frequency: Every 4 hours PRN Ordered Rate/Order Duration: -- / 2 Minutes Timestamps Action Dose / Duration Route Other Information 11/08/23 1254 Given 10 mg 2 Minutes intravenous Performed by: Hannah Jeffery RN Scanned Package: 85750-324-67 magnesium sulfate 2 g/50 mL in water (premix) 2 g [[id number]] Ordering Provider: Vicki Rehman NP Status: Completed (Past End Date/Time) Ordered On: 11/08/23 1322 Starts/Ends: 11/08/23 1400 - 11/08/23 1454 Ordered Dose (Remaining/Total): 2 g (0/1) Route: intravenous Frequency: Once Ordered Rate/Order Duration: -- / 60 Minutes Timestamps Action Dose / Duration Route Other Information 11/08/23 1354 New Bag 2 g 60 Minutes intravenous Performed by: Hannah Jeffery RN Scanned Package: 77923-458-27 ondansetron (ZOFRAN) injection 4 mg [[id number]] Ordering Provider: Vicki Rehman NP Status: Dispensed Ordered On: 11/08/23 1353 Start: 11/08/23 1352 Ordered Dose (Remaining/Total): 4 mg (--/--) Route: intravenous Frequency: Every 6 hours PRN Ordered Rate/Order Duration: -- / 2 Minutes Admin Instructions: 1st line Timestamps Action Dose / Duration Route Other Information 11/09/23 1322 Given 4 mg 2 Minutes intravenous Performed by: Lucio Gaines RN Scanned Package: [address]-3 ceFAZolin (ANCEF) 2,000 mg/20 mL in sterile water (premix) 2,000 mg [[id number]] Ordering Provider: Vicki Rehman NP Status: Dispensed [...] Cordero RN cetirizine (ZyrTEC) tablet 10 mg [[id number]] Ordering Provider: Vicki Rehman NP Status: Dispensed Ordered On: 11/08/23 1417 Start: 11/08/23 1500 Ordered Dose (Remaining/Total): 10 mg (--/--) Route: oral Frequency: Daily Ordered Rate/Order Duration: -- / -- Timestamps Action Dose Route Other Information 11/12/23 0856 Given 10 mg oral Performed by: Portillo Cordero RN Scanned Package: 6499-0194-05 cholecalciferol (VITAMIN D-3) capsule 5,000 Units [[id number]] Ordering Provider: Vicki Rehman NP Status: Dispensed Ordered On: 11/08/23 1417 Start: 11/08/23 1500 Ordered Dose (Remaining/Total): 5,000 Units (--/--) Route: oral Frequency: Daily Ordered Rate/Order Duration: -- / -- Admin Instructions: Each capsule contains 5,000 units (125 mcg) of cholecalciferol, Timestamps Action Dose Route Other Information 11/12/23 0857 Given 5,000 Units oral Performed by: Portillo Cordero RN Scanned Package: [id number] tamsulosin (FLOMAX) extended release capsule 0.8 mg [[id number]] Ordering Provider: Vicki Rehman NP Status: Dispensed Ordered On: 11/08/231416 Start: 11/08/23 1800 Ordered Dose (Remaining/Total): 0.8 mg (--/--) Route: oral Frequency: Daily with dinner Ordered Rate/Order Duration: -- / -- Admin Instructions: Do not crush, chew, cut, dissolve, open or otherwise manipulate tablet/capsule. Timestamps Action Dose Route Other Information 11/11/23 1729 Given 0.8 mg oral Performed by: Melissa Eddy RN Scanned Package: 38992-164-81, 62851-391-92 sodium chloride 0.9% flush 0.5-20 mL [[id number]] Ordering Provider: Aston Bragg MD Status: Verified Ordered On: 11/09/23 1620 Start: 11/09/23 1700 Ordered Dose (Remaining/Total): 0.5-20 mL (--/--) Route: intra-catheter Frequency: Every 8 hours scheduled Ordered Rate/Order Duration: -- / -- Admin Instructions: Flush volume based on line type and size. Timestamps Action Dose Route Other Information 11/12/23 0520 Given 10 mL intra-catheter Performed by: Madhav Hernandez RN Scanned Package: [id number] sodium chloride 0.9% flush 0.5-20 mL [[id number]] Ordering Provider: Aston Bragg MD Status: Verified Ordered On: 11/09/231619 Start: 11/09/231619 Ordered Dose (Remaining/Total): 0.5-20 mL (--/--) Route: intra-catheter Frequency: As needed Ordered Rate/Order Duration: -- / -- Admin Instructions: Flush volume based on line type and size. Flush before and after each use. (No admins scheduled or recorded for this medication) ondansetron (ZOFRAN) injection 4 mg [[id number]] Ordering Provider: Vicki Rehman NP Status: Completed (Past End Date/Time) Ordered On: 11/08/231708 Starts/Ends: 11/08/231744 - 11/08/231715 Ordered Dose (Remaining/Total): 4 mg (0/1) Route: intravenous Frequency: Once Ordered Rate/Order Duration: -- / 2 Minutes Timestamps Action Dose / Duration Route Other Information 11/08/231713 Given 4 mg 2 Minutes intravenous Performed by: Nkechi Gr RN Scanned Package: [address]-0 prochlorperazine (COMPAZINE) injection 5 mg [[id number]] Ordering Provider: Vicki Rehman NP Status: Dispensed Ordered On: 11/08/231708 Start: 11/08/231708 Ordered Dose (Remaining/Total): 5 mg (--/--) Route: intravenous Frequency: Every 6 hours PRN Ordered Rate/Order Duration: -- / 2 Minutes Timestamps Action Dose / Duration Route Other Information 11/09/23 1002 Given 5 mg 2 Minutes intravenous Performed by: Lucio Gaines RN Scanned Package: 04890-274-55 cyclobenzaprine (FLEXERIL) tablet 5 mg [[id number]] Ordering Provider: Vicki Rehman NP Status: Dispensed Ordered On: 11/08/231709 Start: 11/08/231708 Ordered Dose (Remaining/Total): 5 mg (--/--) Route: oral Frequency: 3 times daily PRN Ordered Rate/Order Duration: -- / -- Timestamps Action Dose Route Other Information 11/08/23 180 Given 5 mg oral Performed by: Eula Coffey RN Scanned Package: 09888-876-85 ramelteon (ROZEREM) tablet 8 mg [[id number]] Ordering Provider: Nuvia Cantu NP Status: Dispensed Ordered On: 11/08/232037 Start: 11/08/232114 Ordered Dose (Remaining/Total): 8 mg (--/--) Route: oral Frequency: Nightly Ordered Rate/Order Duration: -- / -- Timestamps Action Dose Route Other Information 11/11/232138 Given 8 mg oral Performed by: Madhav Hernandez RN Scanned Package: 80398-975-97 traZODone (DESYREL) tablet 50 mg [[id number]] Ordering Provider: Nuvia Cantu NP Status: Completed (Past End Date/Time) Ordered On: 11/08/232109 Starts/Ends: 11/08/232144 - 11/08/232114 Ordered Dose (Remaining/Total): 50 mg (0/1) Route: oral Frequency: Once Ordered Rate/Order Duration: -- / -- Timestamps Action Dose Route Other Information 11/08/232114 Given 50 mg oral Performed by: Johnie Arredondo RN Scanned Package: 06652-643-08 oxyCODONE (ROXICODONE) tablet 5 mg [[id number]] Ordering Provider: Alonso Burks MD Status: Completed (Past End Date/Time) Ordered On: 11/08/232257 Starts/Ends: 11/08/232329 - 11/08/232303 Ordered Dose (Remaining/Total): 5 mg (0/1) Route: oral Frequency: Once Ordered Rate/Order Duration: -- / -- Timestamps Action Dose Route Other Information 11/08/232303 Given 5 mg oral Performed by: Johnie Arredondo RN Scanned Package: 56872-873-15 Lactated Ringer's (LR) bolus 500 mL [[id number]] Ordering Provider: Nuvia Cantu NP Status: Completed (Past End Date/Time) Ordered On: 11/08/235 Starts/Ends: 11/09/23 0000 - 11/09/23 0033 Ordered Dose (Remaining/Total): 500 mL (0/1) Route: intravenous Frequency: Once Ordered Rate/Order Duration: 500 mL/hr / 1 Hours Timestamps Action Dose / Rate / Duration Route Other Information 11/08/23 2333 New Bag 500 mL 500 mL/hr 1 Hours intravenous Performed by: Johnie Arredondo RN Scanned Package: 5062-4560-50 midazolam (VERSED) 1 mg/mL injection [[id number]] Ordering Provider: Honorio Hannon MD Status: Completed (Past End Date/Time) Ordered On: 11/09/23 08 Frequency: As needed Line Med Link Info Comment Peripheral IV 11/08/23 20 G Left Forearm 11/09/23 08 by Tamia Schroeder RN -- Timestamps Action Dose Route Other Information 11/09/23 08 Given 1 mg intravenous Performed by: Tamia Schroeder RN fentaNYL (SUBLIMAZE) preservative free injection [[id number]] Ordering Provider: Honorio Hannon MD Status: Completed (Past End Date/Time) Ordered On: 11/09/23 0808 Frequency: As needed Line Med Link Info Comment Peripheral IV 11/08/23 20 G Left Forearm 11/09/23 0808 by Tamia Schroeder RN -- Timestamps Action Dose Route Other Information 11/09/23 08 Given 50 mcg intravenous Performed by: Tamia Schroeder RN lidocaine PF (XYLOCAINE) 10 mg/mL (1 %) preservative free injection [[id number]] Ordering Provider: Honorio Hannon MD Status: Completed (Past End Date/Time) Ordered On: 11/09/23 0809 Frequency: As needed Timestamps Action Dose Route Other Information 11/09/23 0809 Given 4 mL Injection Performed by: Tamia Schroeder RN Comments: R Neck ioversoL (OPTIRAY 350) injection [[id number]] Ordering Provider: Honorio Hannon MD Status: Completed (Past End Date/Time) Ordered On: 11/09/23 0837 Frequency: As needed Timestamps Action Dose Route / Site / Linked Line Other Information 11/09/23 0837 Given 100 mL -- Performed by: Honorio Hannon MD Documented by: Tamia Schroeder RN acyclovir (ZOVIRAX) tablet 400 mg [[id number]] Ordering Provider: Vicki Rehman NP Status: Dispensed Ordered On: 11/09/23 0956 Start: 11/09/23 1030 Ordered Dose (Remaining/Total): 400 mg (--/--) Route: oral Frequency: 2 times daily Ordered Rate/Order Duration: -- / -- Timestamps Action Dose Route Other Information 11/12/23 0856 Given 400 mg oral Performed by: Portillo Cordero RN Scanned Package: 54490-903-02 ioversoL (OPTIRAY 350) syringe 100 mL [[id number]] Ordering Provider: Vicki Rehman NP Status: Completed (Past End Date/Time) Ordered On: 11/09/23 1208 Starts/Ends: 11/09/23 1208 - 11/09/23 1223 Ordered Dose (Remaining/Total): 100 mL (0/1) Route: intravenous Frequency: Once in imaging Ordered Rate/Order Duration: -- / -- Timestamps Action Dose Route Other Information 11/09/23 1223 Contrast Given 63 mL intravenous Performed by: Silver Magdaleno, dextrose gel in packet 15 g [[id number]] Ordering Provider: Vicki Rehman NP Status: Verified [...] medication) dextrose (D10W) 10% bolus 250 mL [[id number]] Ordering Provider: Vicki Rehman NP Status: Verified [...] hour post treatment. If BG is less [id number] mg/dL, repeat Q15 minute BG checks and treatment. Call MD for each episode of hypoglycemia. (No admins scheduled or recorded for this medication) glucagon injection 1 mg [[id number]] Ordering Provider: Vicki Rehman NP Status: Verified [...] (HumaLOG, ADMELOG) 100 unit/mL injection 0-10 Units [[id number]] Ordering Provider: Vicki Rehman NP Status: Dispensed Ordered On: 11/09/231457 Start: 11/09/23 1800 Ordered Dose (Remaining/Total): 0-10 Units (--/--) Route: [...] Units subcutaneous Right Upper Arm Performed by: Portilol Cordero RN Scanned Package: 4022-8199-24 insulin lispro (HumaLOG, ADMELOG) 100 unit/mL injection 0-5 Units [[id number]] Ordering Provider: Vicki Rehman NP Status: Dispensed [...] subcutaneous Left Lower Abdomen Performed by: Madhav Hernandez, NARENDRA Scanned Package: 7131-1104-77 senna-docusate (PERICOLACE) 8.6-50 mg per tablet 2 tablet [[id number]] Ordering Provider: Dorie Sofia NP Status: Dispensed Ordered On: 11/10/23 1035 Start: 11/10/23 1115 Ordered Dose (Remaining/Total): 2 tablet (--/--) Route: oral Frequency: 2 times daily Ordered Rate/Order Duration: -- / -- Timestamps Action Dose Route Other Information 11/11/23 0838 Given 2 tablet oral Performed by: Melissa Eddy RN Scanned Package: 1494-6632-33, 6398-4086-92 bisacodyL (DULCOLAX) suppository 10 mg [[id number]] Ordering Provider: Dorie Sofia NP Status: Dispensed Ordered On: 11/10/23 1035 Start: 11/10/23 1115 Ordered Dose (Remaining/Total): 10 mg (--/--) Route: rectal Frequency: Daily Ordered Rate/Order Duration: -- / -- Timestamps Action Dose Route Other Information 11/10/23 1636 Given 10 mg rectal Performed by: Melissa Eddy RN Comments: patientt request Scanned Package: 9008-2027-30 lactulose 0.67 gram/mL oral solution 20 g [[id number]] Ordering Provider: Dorie Sofia NP Status: Completed (Past End Date/Time) Ordered On: 11/10/23 1634 Starts/Ends: 11/10/23 1715 - 11/10/23 1719 Ordered Dose (Remaining/Total): 20 g (0/1) Route: oral Frequency: Once Ordered Rate/Order Duration: -- / -- Timestamps Action Dose Route Other Information 11/10/23 1719 Given 20 g oral Performed by: Melissa Eddy RN Scanned Package: 4781-7828-16 sodium chloride 0.9% IVPB 0-250 mL [[id number]] Ordering Provider: Dorie Sofia NP Status: Completed [...] Performed by: Melissa Eddy RN Scanned Package: 3126-3967-33 vancomycin 1,000 mg/200 mL in dextrose 5% (premix) 1,000 mg [[id number]] Ordering Provider: Francisco Javier Aleman NP Status: Dispensed Ordered On: 11/12/23 0758 Start: 11/12/23 1800 Ordered Dose (Remaining/Total): 1,000 mg (--/--) Route: intravenous Frequency: Every 12 hours Ordered Rate/Order Duration: -- / 60 Minutes (No admins scheduled or recorded for this medication) lidocaine PF (XYLOCAINE) 10 mg/mL (1 %) preservative free injection 100 mg [[id number]] Ordering Provider: Nasir Manzanares MD Status: Dispensed Ordered On: 11/12/23 0807 Starts/Ends: 11/12/23 0845 - 11/13/23 0845 Ordered Dose (Remaining/Total): 10 mL (1/1) Route: infiltration Frequency: Once Ordered Rate/Order Duration: -- / -- (No admins scheduled or recorded for this medication) traMADoL (ULTRAM) tablet 50 mg [[id number]] Ordering Provider: Nasir Manzanares MD Status: Completed (Past End Date/Time) Ordered On: 11/12/23 0904 Starts/Ends: 11/12/23 0945 - 11/12/23 0915 Ordered Dose (Remaining/Total): 50 mg (01) Route: oral Frequency: Once Ordered Rate/Order Duration: -- / -- Timestamps Action Dose Route Other Information 11/12/23 0915 Given 50 mg oral Performed by: Portillo Cordero RN Scanned Package: 62131-789-26 , OT Eval and Treat Last 72 Hours OT Evaluation Row Name 11/10/23 1412 Chart Reviewed Yes -BB Session Type Evaluation -BB OT Received On 11/10/23 -BB Safe Environment Arm band checked;Patient found in supine;Gait belt not utilized, see comment pialift utilized -BB Subjective Agreeable to Therapy -BB [...] Equipment-Currently Using Wheeled walker -BB Level of [place] Independent with ADLs;Independent functional transfers;Independent with ambulation;Needs assistance with homemaking -BB Lives With Spouse -BB Receives Help From Spouse/Significant other;Family methods time analyst assist available -BB Driving Yes has not driven for several weeks -BB ADL Assistance Independent pts provided spv in the last few weeks -BB Instrumental ADL (IADL) Assistance -- completed by /family -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 -BB Fall within the last 6 months [...] training;Functional transfer training;Strengthening;Therapeutic activity;Therapeutic exercise;Transfer traini ng -STORM OT - Next Appointment 11/12/23 -BB OT [...] performing ADLs with supervision -AR Level of [place] Independent functional transfers;Independent with ambulation -AR Lives [...] patient to new unit Once (Routine) Question: ([facility]) Service: Answer: Ortho 11/09/23 1208 , Wound [...] Assessed 10/23/23 Site Back Time First Assessed 8 Days 19 Assessments Row Name 11/12/23 0800 [...] , Vitals Info Only Vital Signs 11/11 0659 11/12 0700 11/12 1151 Most Recent Temp (??C) 36.4 - 36.7 36.4 (97.6) 11/12 0400 Pulse 58 - 77 69 - 77 77 11/12 947 Resp 15 - 21 15 - 22 22 11/12 947 SpO2 (%) 97 - 100 100 100 11/12 947 BP 117/64 - 164/83 138/84 - 141/78 138/84 11/12 947 MAP (mmHg) 78 - 105 93 - 95 95 11/12 947 SHREDDER * Plan of Care - Melissa Eddy [...] risk of falls will improve Outcome: Progressing SHREDDER * Plan of Care - Melissa Eddy [...] increase the pain will improve Outcome: Progressing SHREDDER * Initial Assessments - Arlyn Suresh MSW [...] : Yes-DPOA DPOA Name/Phone: Val Evans Spouse [phone] 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 (11/10/23 1503) Current Situation: Current Situation Living Arrangements: Spouse/significant other Type of Residence: Private residence Income: Employed, Detention/Pension Income Comment: Patient works full-time. Spouse recieves jail income and SS. Education Level : Advanced College Degree How do you Pay for Medication: Insurance benefits Current Transportation: Own vehicle What do you do with your Free Time: Patient enjoys traveling. (11/10/23 1503) Legal History: Legal History Legal Information : No legal issues (11/10/23 150) Support Systems and Spirituality: Support Systems and Spirituality Support System: Spouse, Children Spouse Name/Contact Information: Val Evans Spouse [phone] Children Name/Contact Information: Marcial Evans Son [phone],Stefan Evans Son [phone], Mary Pina Daughter [phone] Do you have a Religion Preference or Affiliation?: Yes Preference/Affiliation : Atheist Are there any Religion Practices that are important to maintain while [...] More than three times a week Attends Religion Services: Never Active Member of Clubs or [...] source for support and Val Evans (Spouse) ([phone]) is identified as surrogate decision maker. Predictive [...] Case management following for discharge. GEN Alvarez Melon Packer Please refer to [facility] chart for contact information SHREDDER * Plan of Care - Son Brown [...] Will remain free from infection Outcome: Progressing SHREDDER * Plan of Care - Kasey Emmanuel RN - 11/09/2023 4:05 PM RAG SHREDDER Problem: Lack of Knowledge: Goal: Understanding of [...] IVC filter placement. Patient successfully transferred to [facility]. Patient reports minimal pain at this time. SHREDDER * Initial Assessments - Melissa Barker RN - 11/09/2023 3:32 PM CST CM Initial Assessment Interview Note Information Obtained From: Other (Specify) Name: per chart review (11/09/231512) Admission Source: OSH Impression: 73 year old male admitted for paralysis of both lower limbs Plan Includes: Discharge patient to appropriate level of care when medically stable. manager icu will continue to follow and assess for discharge needs. Primary Source of Transportation: Does the patient need discharge transport arranged?: No (family) (11/09/231512) Health Insurance Coverage: [facility] Medicare Prescription Coverage: yes Pharmacy: [facility] [address] [place] [id number] [facility] [id number] [facility] [address] Primary Care Provider: Rl Medina DO Prior to Admission: Primary Caregiver: Self Support System: Spouse/Significant Other, Children Home Care Services: No (recent discharge from [facility] on 10/30 and unable to find home care at that time) Durable Medical Equipment: Cane (single prong), Walker (wheeled) Living Arrangements: Spouse/significant other Type of Residence: Private residence Medication management: Independent (11/09/231512) Potential discharge needs include: Home Health: Physical therapy, Occupational therapy, jail (11/09/231512) Behavioral Health Services: Behavioral Health Services: [...] Collaboration with patient, MD, direct care nurse, Melon Packer, and other members of the health care team to assure needed interventions completed. 2. Return patient to optimal level of self-care post discharge. 3. [employer] Worker will follow for Discharge Planning - interventions [...] with the aftercare plan. Melissa Barker RN SHREDDER * Significant Event - Vicki Rehman Nathalie, CARLA - 11/09/2023 2:09 PM RAG SHREDDER CHUGG-OUT (SICU to OU/Floor Transfer) SICU HANDOFF 73 y.o male with PMH prostate [...] of the Ortho spine service. QUESTIONS? Call [phone] ([phone]). SHREDDER * Plan of Care - Damaris Maxwell LCSW - 11/09/2023 11:44 AM CST Patient flagged as a 30 day readmission. Patient is A&Ox1 and no family present at bedside. PerRN, patient's spouse intends to visit this afternoon. SW will attempt to complete assessment with spouse this afternoon. GEN Munoz, COLOR STRAINER SHREDDER * Plan of Care - Melissa Barker RN - 11/09/2023 10:38 AM RAG SHREDDER LUIS received call from Medina from [facility] phone: [phone] ext [phone]. Wants to know if patient will need a swing bed on discharge? CM will follow for dc recommendations. Melissa Barker RN Case Management 11/09/2023 SHREDDER * Post-Procedure Note - Honorio Hannon MD - 11/09/2023 8:37 AM RAG SHREDDER Radiology Brief Post Procedure Note Attending: Verena Top Closer: Riddhi Sedation/Anesthesia: Min Sedation Pre-Op/Pre-Procedure Diagnosis: Pulmonary embolism Post-Op/Post-Procedure Diagnosis: same Procedure Performed: IVC filter placement Procedure Findings: successful placement of infrarenal Tulip IVC filter Complications: None Estimated Blood Loss: < 30 ml Specimens: None Condition: Stable Full report to follow. SHREDDER * Plan of Care - Johnie Arredondo RN - 11/08/2023 11:21 PM RAG SHREDDER Goals: Clinical Goals for the Shift: pain control, sleep hygiene Summary: Problem: Activity: Goal: Mobility will improve 11/08/20232320 by Johnie Arredondo RN [...] a balanced intake and output will improve 11/08/2023 232 by Johnie Arredondo [...] remain free from infection Outcome: Not Progressing SHREDDER * Plan of Care - Damaris Maxwell LCSW - 11/08/2023 3:16 PM CST Patient flagged as a 30 day readmission. SW attempted to meet with him to complete assessment, however he was with nursing staff and unavailable. SW will attempt again at a later time. GEN Munoz LCSW SHREDDER * Pre-Procedure Note - Aston Bragg MD - 11/08/2023 2:28 PM RAG SHREDDER PRE-SEDATION ASSESSMENT/H&P Patient is a 73 y.o. [...] Noted Paralysis of both lower limbs (CMS/HCC) ([facility]) 11/07/2023 Pulmonary embolism ([facility]) 10/26/2023 S/P spinal fusion 10/23/2023 Cardiac arrest ([facility]) 10/23/2023 Left perinephric collection, 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 10/15/2023 Ureteral colic 10/13/2023 UTI (urinary tract infection) 10/13/2023 Hydronephrosis with urinary obstruction due to renal calculus 10/12/2023 Lumbar radiculopathy 10/08/2023 Gross hematuria 10/18/2022 Bladder neck obstruction 10/17/2022 Lesion of urinary bladder 10/17/2022 Prostate cancer ([facility]) 10/17/2022 HTN (hypertension) 10/10/2021 Risk factors for obstructive sleep apnea 10/10/2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 All questions answered and they agree to proceed. SHREDDER * Op Note - Marcial Vu MD - 11/08/2023 4:57 AM CST Operative Report Surgeon Marcial Vu MD Cafe Operator(s) MD Avila Fontenot MD Michele Christy, [...] the left quadriceps weakness with my senior living sales counselor prior to developing a final surgical plan. [...] a left ureteral stone and was admitted [facility] on October 12, 2023. The decision [...] from his stating that 5 minutes prior, Hira had developed sudden onset numbness from the waist down involving bilateral lower extremities and the saddle region as well as inability to move his legs, feet, or toes. I was concerned for a hematoma and requested that they present to [facility] Emergency Department immediately. His imaging demonstrated a [...] on Discharge Stable. Marcial Vu Jr., MD Picture Enlarger Department of Orthopaedic Surgery Division of Spine Surgery [facility] [employer] [place], [place] Operative Report dictated by Marcial Vu MD on 11/09/23 using Fluency Direct. Transcriptionvariances may occur. SHREDDER SHREDDER SHREDDER * Brief Op Note - Nasir Manzanares MD - 11/08/2023 4:57 AM CST Operative Progress Note Surgical Team: Surgeon(s) and Role: * Marcial Vu MD - Primary * Simeon Cuevas MD - Assisting * Avila Esqueda MD - Resident - Assisting Anesthesiologist: Edmond Barker MD; Hood Kim MD Golf Course Assistant: George Plummer MD; Javad Morales MD Cephalometric Analyst: Silver Chow RN; Aranza Mariano RN Cephalometric Analyst Relief: Justin Odonnell RN Scrub: Paige Vega ST; Anjana Glaser RN; Linda Tompkins RN Sorter Upholstery Parts: Adia Poe MT Cephalometric Analyst Second: Aileen Morales RN; Jamaica Dunlap RN [...] Marcial Vu MD at 11/08/2023 4:23 PM RAG SHREDDER SHREDDER SHREDDER * ED Procedure Note - Eula Wagoner MD - 11/08/2023 2:18 AM RAG SHREDDER Associated Order(s): Critical Care Procedure Critical Care [...] medical record. Eula Wagoner MD 11/08/23 0219 SHREDDER * ED Re-evaluation Note - Abdi Dwyer MD - 11/07/2023 11:04 PM RAG SHREDDER ED Re-evaluation TRANSITION OF CARE: IAbdi MD, am taking signout from the previous [...] Ayala MD Time: 11/07 2238 Comment: Called [facility] MRI. Patient is on the schedule for 2329 and is the next patient. By: Deisy Ayala MD Time: 11/08 56 Comment: Ortho spine requested CT of CT and L-spine non con. They are planning for OR By: Abdi Dwyer MD Final diagnoses: Paralysis of both lower limbs (CMS/HCC) (HCC) Abdi Dwyer MD Resident 11/11/23 1626 SHREDDER * ED Procedure Note - Temo Hampton [...] the admitting team. Temo Hampton MD 11/07/23 1237 SHREDDER * Plan of Deny - Latha Gaston RN - 11/07/2023 9:00 PM CST As part of the readmission prevention initiative, ED CM receives an automated alert on patient who was discharged from [facility] inpatient admission </=7 days (DC 10/30/23; ED treatment team aware). Per EMR, pt activity enrolled with [facility]), so full chart review not completed. Secure message received from [facility] (Outpatient [employer] Construction Worker) confirming follow and willingness to provide assistance as needed. For questions or care management/discharge assistance please contact health economist [facility] #[phone], ED CM [phone], or ED SW [phone]. SHREDDER * ED Pre-Arrival Note - Niyah Anderson RN - 11/07/2023 7:23 PM RAG SHREDDER Pre-Arrival Note 73 M- Presented to OSH with c/o BLE numbness and tingling, unable to ambulate. Post-op 10/19/23, laminectomy on L4/L5 with Dr. Vu, concern for hematoma. Accepted to ED by Dr. Moises Anderson, NARENDRA SHREDDER documented in this encounter Plan of Treatment Pending Results Name Type Priority Associated Diagnoses Date /Time Basic metabolic panel Lab Routine 03/2024 11:30 PM RAG SHREDDER Lidocaine level Lab Routine 11:13 PM RAG SHREDDER Scheduled Orders Name Type Priority Associated Diagnoses [...] GLUCOSE DEVICE Routine 11/16/2023 1 1:35 AM RAG SHREDDER POCT GLUCOSE DEVICE Routine 11/16/2023 7 :53 AM RAG SHREDDER POCT GLUCOSE DEVICE Routine 11/15/2023 9 :20 PM RAG SHREDDER EGFR Timed 11/15/2023 9:18 PM RAG SHREDDER CBC WITHOUT DIFFERENTIAL Timed 11/15/2023 9:18 PM RAG SHREDDER PHOSPHORUS Timed 11/15/2023 9:18 PM RAG SHREDDER MAGNESIUM Timed 11/15/2023 9:18 PM RAG SHREDDER BASIC METABOLIC PANEL Timed 11/15/2023 9:18 PM RAG SHREDDER POCT GLUCOSE DEVICE Routine 11/15/2023 5 :17 PM RAG SHREDDER POCT GLUCOSE DEVICE Routine 11/15/2023 1 2:20 PM RAG SHREDDER POCT GLUCOSE DEVICE Routine 11/15/2023 8 :02 AM RAG SHREDDER POCT GLUCOSE DEVICE Routine 11/14/2023 8 :39 PM RAG SHREDDER POCT GLUCOSE DEVICE Routine 11/14/2023 5 :44 PM RAG SHREDDER XR SPINE THORACIC 2 VIEWS IP Routine 11/14/2023 1:51 PM RAG SHREDDER XR SPINE LUMBAR 2 OR 3 VIEWS IP Routine 11/14/2023 1:51 PM RAG SHREDDER XR SPINE CERVICAL 2 OR 3 VIEWS IP Routine 11/14/2023 1:50 PM RAG SHREDDER POCT GLUCOSE DEVICE Routine 11/14/2023 1 1:52 AM RAG SHREDDER POCT GLUCOSE DEVICE Routine 11/14/2023 8 :04 AM RAG SHREDDER POCT GLUCOSE DEVICE Routine 11/13/2023 8 :11 PM RAG SHREDDER EGFR Timed 11/13/2023 8:07 PM RAG SHREDDER CBC WITHOUT DIFFERENTIAL Timed 11/13/2023 8:07 PM RAG SHREDDER PHOSPHORUS Timed 11/13/2023 8:07 PM RAG SHREDDER MAGNESIUM Timed 11/13/2023 8:07 PM RAG SHREDDER BASIC METABOLIC PANEL Timed 11/13/2023 8:07 PM RAG SHREDDER POCT GLUCOSE DEVICE Routine 11/13/2023 4 :58 PM RAG SHREDDER POCT GLUCOSE DEVICE Routine 11/13/2023 1 2:22 PM RAG SHREDDER POCT GLUCOSE DEVICE Routine 11/13/2023 7 :34 AM RAG SHREDDER POCT GLUCOSE DEVICE Routine 11/12/2023 9 :34 PM RAG SHREDDER POCT GLUCOSE DEVICE Routine 11/12/2023 5 :15 PM RAG SHREDDER POCT GLUCOSE DEVICE Routine 11/12/2023 1 1:25 AM RAG SHREDDER POCT GLUCOSE DEVICE Routine 11/12/2023 7 :59 AM RAG SHREDDER POCT GLUCOSE DEVICE Routine 11/11/2023 9 :38 PM RAG SHREDDER EGFR Routine 11/11/2023 9:35 PM RAG SHREDDER CBC WITHOUT DIFFERENTIAL Routine 11/11/2023 9:35 PM RAG SHREDDER PHOSPHORUS Routine 11/11/2023 9:35 PM RAG SHREDDER MAGNESIUM Routine 11/11/2023 9:35 PM RAG SHREDDER BASIC METABOLIC PANEL Routine 11/11/2023 9:35 PM RAG SHREDDER POCT GLUCOSE DEVICE Routine 11/11/2023 5 :37 PM RAG SHREDDER CBC WITHOUT DIFFERENTIAL Routine 11/11/2023 5:08 PM RAG SHREDDER VANCOMYCIN LEVEL TROUGH Timed 11/11/2023 2:44 PM RAG SHREDDER TRANSFUSE RED BLOOD CELLS Timed 11/11/2023 12:56 PM RAG SHREDDER POCT GLUCOSE DEVICE Routine 11/11/2023 1 2:11 PM RAG SHREDDER TYPE AND SCREEN Timed 11/11/2023 11:29 AM RAG SHREDDER PREPARE RBC Timed 11/11/2023 10:08 AM RAG SHREDDER POCT GLUCOSE DEVICE Routine 11/11/2023 8 :33 AM RAG SHREDDER EGFR Routine 11/10/2023 11:13 PM RAG SHREDDER LIDOCAINE LEVEL Routine 11/10/2023 11:13 PM RAG SHREDDER CBC WITHOUT DIFFERENTIAL Routine 11/10/2023 11:13 PM RAG SHREDDER PHOSPHORUS Routine 11/10/2023 11:13 PM RAG SHREDDER MAGNESIUM Routine 11/10/2023 11:13 PM RAG SHREDDER BASIC METABOLIC PANEL Routine 11/10/2023 11:13 PM RAG SHREDDER POCT GLUCOSE DEVICE Routine 11/10/2023 8 :50 PM RAG SHREDDER POCT GLUCOSE DEVICE Routine 11/10/2023 5 :31 PM RAG SHREDDER POCT GLUCOSE DEVICE Routine 11/10/2023 1 1:47 AM RAG SHREDDER POCT GLUCOSE DEVICE Routine 11/10/2023 8 :00 AM RAG SHREDDER VANCOMYCIN LEVEL TROUGH Timed 11/10/2023 2:59 AM RAG SHREDDER EGFR Routine 11/09/2023 11:30 PM RAG SHREDDER LIDOCAINE LEVEL Routine 11/09/2023 11:30 PM RAG SHREDDER CBC WITHOUT DIFFERENTIAL Routine 11/09/2023 11:30 PM RAG SHREDDER BASIC METABOLIC PANEL Routine 11/09/2023 11:30 PM RAG SHREDDER EGFR Routine 11/09/2023 8:41 PM RAG SHREDDER CBC WITHOUT DIFFERENTIAL Routine 11/09/2023 8:41 PM RAG SHREDDER PHOSPHORUS Routine 11/09/2023 8:41 PM RAG SHREDDER MAGNESIUM Routine 11/09/2023 8:41 PM RAG SHREDDER BASIC METABOLIC PANEL Routine 11/09/2023 8:41 PM RAG SHREDDER POCT GLUCOSE DEVICE Routine 11/09/2023 8 :38 PM RAG SHREDDER POCT GLUCOSE DEVICE Routine 11/09/2023 4 :47 PM RAG SHREDDER POCT GLUCOSE DEVICE Routine 11/09/2023 3 :[address] CHEST PE W CONTRAST IP Routine 11/09/2023 12:22 PM RAG SHREDDER LIDOCAINE LEVEL Timed 11/09/2023 11:43 AM RAG SHREDDER POCT GLUCOSE DEVICE Routine 11/09/2023 1 1:04 AM RAG SHREDDER CRITICAL CARE Routine 11/09/2023 9:22 AM RAG SHREDDER Paralysis of both lower limbs (CMS/HCC) (HCC) INSERT VENA CAVA FILTER IP Routine 11/09/2023 8:47 AM RAG SHREDDER POCT GLUCOSE DEVICE Routine 11/09/2023 7 :07 AM RAG SHREDDER POCT GLUCOSE DEVICE Routine 11/09/2023 3 :24 AM RAG SHREDDER POCT GLUCOSE DEVICE Routine 11/08/2023 1 1:49 PM RAG SHREDDER EGFR Routine 11/08/2023 9:01 PM RAG SHREDDER CBC WITHOUT DIFFERENTIAL Routine 11/08/2023 9:01 PM RAG SHREDDER PHOSPHORUS Routine 11/08/2023 9:01 PM RAG SHREDDER MAGNESIUM Routine 11/08/2023 9:01 PM RAG SHREDDER BASIC METABOLIC PANEL Routine 11/08/2023 9:01 PM RAG SHREDDER POCT GLUCOSE DEVICE Routine 11/08/2023 7 :10 PM RAG SHREDDER CRITICAL CARE Routine 11/08/2023 6:15 PM RAG SHREDDER Paralysis of both lower limbs (CMS/HCC) (HCC) US VEIN DUPLEX LOWER EXTREMITY BILATERAL COMPLETE ED Urgent/IP Urgent 11/08/2023 3:07 PM RAG SHREDDER POCT GLUCOSE DEVICE Routine 11/08/2023 3 :05 PM RAG SHREDDER CRITICAL CARE Routine 11/08/2023 12:12 PM RAG SHREDDER EGFR STAT 11/08/2023 11:51 AM RAG SHREDDER CALCIUM, IONIZED STAT 11/08/2023 11:5 1 AM RAG SHREDDER PROTIME-INR STAT 11/08/2023 11:51 AM RAG SHREDDER CBC WITHOUT DIFFERENTIAL STAT 11/08/2023 11:51 AM RAG SHREDDER PHOSPHORUS STAT 11/08/2023 11:51 AM RAG SHREDDER MAGNESIUM STAT 11/08/2023 11:51 AM RAG SHREDDER BASIC METABOLIC PANEL STAT 11/08/2023 11:51 AM RAG SHREDDER POCT GLUCOSE DEVICE Routine 11/08/2023 1 1:41 AM RAG SHREDDER TRANSFUSE PLASMA Timed 11/08/2023 9:32 AM RAG SHREDDER POC BLOOD GAS AND CHEMISTRIES, ARTERIAL Routine 11/08/2023 8:22 AM RAG SHREDDER TRANSFUSE RED BLOOD CELLS Timed 11/08/2023 7:36 AM RAG SHREDDER POC BLOOD GAS AND CHEMISTRIES, ARTERIAL Routine 11/08/2023 7:05 AM RAG SHREDDER POC BLOOD GAS AND CHEMISTRIES, ARTERIAL Routine 11/08/2023 6:00 AM RAG SHREDDER TRANSFUSE RED BLOOD CELLS Timed 11/08/2023 5:58 AM RAG SHREDDER TRANSFUSE RED BLOOD CELLS Timed 11/08/2023 4:52 AM RAG SHREDDER POC BLOOD GAS AND CHEMISTRIES, ARTERIAL Routine 11/08/2023 4:18 AM RAG SHREDDER REPAIR DURAL TEAR 11/08/2023 2:5 8 AM RAG SHREDDER Paralysis of both lower limbs (CMS/HCC) ([facility]) Case Notes Called [facility] [phone] @ 0208 notified him we need him for emergent spine case in 235, he said It might be a while but he will be there. SPINAL CORD MONITORING 11/08/2023 2:58 AM RAG SHREDDER Paralysis of both lower limbs (CMS/HCC) ([facility]) Case Notes Called [facility] [phone] @ 0208 notified him we need him for emergent spine case in 235, he said It might be a while but he will be there. LAMINECTOMY LUMBAR - POSTERIOR 11/08/2023 2:58 AM RAG SHREDDER Paralysis of both lower limbs (CMS/HCC) ([facility]) Case Notes Called [facility] Gene [phone] @ 0208 notified him we need him for emergent spine case in 235, he said It might be a while but he will be there. LAMINECTOMY THORACIC DECOMPRESSION 11/08/2023 2:58 AM RAG SHREDDER Paralysis of both lower limbs (CMS/HCC) ([facility]) Case Notes Called [facility] Gene [phone] @ 0208 notified him we need him for emergent spine case in 235, he said It might be a while but he will be there. PREPARE PLASMA STAT 11/08/2023 2:28 AM RAG SHREDDER PREPARE RBC STAT 11/08/2023 2:28 AM RAG SHREDDER ED CRITICAL CARE Routine 11/08/2023 2:[address] CERVICAL THORACIC LUMBAR SPINE WO CONTRAST ED Urgent/IP Urgent 11/08/2023 2:09 AM RAG SHREDDER XR SPINE LUMBAR 2 OR 3 VIEWS ED Urgent/IP Urgent 11/08/2023 1:14 AM RAG SHREDDER XR SPINE THORACIC 3 VIEWS ED Urgent/IP Urgent 11/08/2023 1:13 AM RAG SHREDDER MRI SPINE TOTAL COMPLETE WO CONTRAST ED Urgent/IP Urgent 11/08/2023 12:44 AM RAG SHREDDER EGFR STAT 11/07/2023 11:01 PM RAG SHREDDER APTT STAT 11/07/2023 11:01 PM RAG SHREDDER PROTIME-INR STAT 11/07/2023 11:01 PM RAG SHREDDER CBC WITHOUT DIFFERENTIAL STAT 11/07/2023 11:01 PM RAG SHREDDER TYPE AND SCREEN STAT 11/07/2023 11:01 PM RAG SHREDDER BASIC METABOLIC PANEL STAT 11/07/2023 11:01 PM RAG SHREDDER GA CRITICAL CARE ILL/INJURED PATIENT INIT 30-74 MIN Routine 11/07/2023 10:43 PM RAG SHREDDER documented in this encounter Results * POCT glucose (11/16/2023 11:35 AM RAG SHREDDER) [facility] Signature Glucose, POC 166 70 - 199 mg/dL [facility] Blood 11/16/2023 11:3 5 AM RAG SHREDDER 11/16/2023 11:35 AM RAG SHREDDER Marcial Vu Jr., MD LAB POCT ORDERABLES - DEVICE Final Result [facility] Department [place] [address] * POCT glucose (11/16/2023 7:53 AM RAG SHREDDER) Glucose, POC 142 70 - 199 mg/dL [facility] Blood 11/16/2023 7:53 AM RAG SHREDDER 11/16/2023 7:53 AM RAG SHREDDER Marcial Vu Jr., MD LAB POCT ORDERABLES - DEVICE Final Result Performing Organization Address City/[facility]/ZIP Co de Phone Number [facility] Department [place] [address] * POCT glucose (11/15/2023 9:20 PM RAG SHREDDER) Glucose, POC 182 70 - 199 mg/dL [facility] Blood 11/15/2023 9:20 PM RAG SHREDDER 11/15/2023 9:20 PM RAG SHREDDER Marcial Vu Jr., MD LAB POCT ORDERABLES - DEVICE Final Result Performing Organization Address [facility] de Phone Number [facility] Department [place] [address] * eGFR (11/15/2023 9:18 PM RAG SHREDDER) eGFR >90 >=60 mL/min/1. 73 m2 [facility] Comment: Interpretive Data Reference Interval Normal [...] last reviewed 2021. Blood 11/15/2023 9:18 PM RAG SHREDDER 11/15/2023 9:38 PM RAG SHREDDER Francisco Javier Aleman COURTESY BUS DRIVER LAB BLOOD ORDERABLES Fi nal Result Performing Organization Address [facility] Co de Phone Number [facility] Department [place] [address] * Phosphorus (11/15/2023 9:18 PM RAG SHREDDER) Phosphorus, pl 2.7 2.3 - 4.5 mg/dL [facility] Blood 11/15/2023 9:18 PM RAG SHREDDER 11/15/2023 9:38 PM RAG SHREDDER Francisco Javier Aleman COURTESY [employer] DRIVER LAB BLOOD ORDERABLES Fi nal Result Performing Organization Address [facility] de Phone Number [facility] Department [place] [address] * Magnesium (11/15/2023 9:18 PM RAG SHREDDER) Magnesium 2.1 1.4 - 2.5 mg/dL [facility] Blood 11/15/2023 9:18 PM RAG SHREDDER 11/15/2023 9:38 PM RAG SHREDDER Francisco Javier Aleman COURTES[employer] DRIVER LAB BLOOD ORDERABLES Fi nal Result Performing Organization Address [facility] de Phone Number [facility] Department [place] [address] * (ABNORMAL) CBC without differential (11/15/2023 9:18 PM RAG SHREDDER) [facility] WBC 13.0(H) 3.8 - 9.9 K/cumm [facility] Hgb 9.1(L) 13.0 - 17.5 g/dL [facility] Hct 27.1(L) 38.9 - 50.3 % [facility] Plt 182 150 - 400 K/cumm [facility] MPV 11.2 9.1 - 12.3 fL [facility] RBC 2.99(L) 4.30 - 5.80 M/cumm [facility] MCV 90.6 81.3 - 96.4 fL [facility] MCH 30.4 27.1 - 33.3 pg [facility] MCHC 33.6 32.3 - 35.7 g/dL [facility] RDW CV 14.8 11.1 - 14.9 % [facility] RDW SD 47.6 35.7 - 48.1 fL [facility] NRBC abs 0.00 0.00 - 0.01 K/cumm [facility] Blood 11/15/2023 9:18 PM RAG SHREDDER 11/15/2023 9:38 PM RAG SHREDDER Francisco Javier Aleman COURTESY [employer] DRIVER LAB BLOOD ORDERABLES nal Result [facility] Department [place] [address] * (ABNORMAL) Basic metabolic panel (11/15/2023 9:18 PM RAG SHREDDER) [facility] Sodium 135 135 - 145 mmol/L [facility] Potassium, pl 4.1 3.3 - 4.9 mmol/L [facility] Chloride 103 97 - 110 mmol/L [facility] CO2 25 22 - 32 mmol/L [facility] Anion gap 7 2 - 15 mmol/L [facility] BUN 24 6 - 25 mg/dL [facility] Creatinine 0.72(L) 0.80 - 1.30 mg/dL [facility] Glucose 185 70 - 199 mg/dL [facility] Comment: Interpretive Data Fasting glucose [...] 2022. Calcium 8.0(L) 8.5 - 10.3 mg/dL [facility] Blood 11/15/2023 9:18 PM RAG SHREDDER 11/15/2023 9:38 PM RAG SHREDDER Francisco Javier Aleman NP LAB BLOOD ORDERABLES Fi nal Result [facility] [place] [address] * POCT glucose (11/15/2023 5:17 PM RAG SHREDDER) Glucose, POC 163 70 - 199 mg/dL [facility] Blood 11/15/2023 5:17 PM RAG SHREDDER 11/15/2023 5:17 PM RAG SHREDDER us Marcial Vu Jr., MD LAB POCT ORDERABLES - DEVICE Final Result [facility] [place] [address] * POCT glucose (11/15/2023 12:20 PM RAG SHREDDER) Glucose, POC 170 70 - 199 mg/dL [facility] Blood 11/15/2023 12:2 0 PM RAG SHREDDER 11/15/2023 12:20 PM RAG SHREDDER us Marcial Vu Jr., MD LAB POCT ORDERABLES - DEVICE Final Result Performing Organization Address [facility] de Phone Number [facility] [place] [address] * POCT glucose (11/15/2023 8:02 AM RAG SHREDDER) Glucose, POC 157 70 - 199 mg/dL [facility] Blood 11/15/2023 8:02 AM RAG SHREDDER 11/15/2023 8:02 AM RAG SHREDDER us Marcial Vu Jr., MD LAB POCT ORDERABLES - DEVICE Final Result Performing Organization Address [facility] de Phone Number [facility] [place] [address] * POCT glucose (11/14/2023 8:39 PM RAG SHREDDER) Glucose, POC 180 70 - 199 mg/dL [facility] Blood 11/14/2023 8:39 PM RAG SHREDDER 11/14/2023 8:39 PM RAG SHREDDER us Marcial Vu Jr., MD LAB POCT ORDERABLES - DEVICE Final Result Performing Organization Address [facility] de Phone Number [facility] [place] [address] * POCT glucose (11/14/2023 5:44 PM RAG SHREDDER) Glucose, POC 193 70 - 199 mg/dL [facility] Blood 11/14/2023 5:44 PM RAG SHREDDER 11/14/2023 5:44 PM RAG SHREDDER us Marcial Vu Jr., MD LAB POCT ORDERABLES - DEVICE Final Result Performing Organization Address [facility] de Phone Number [facility] [place] [address] * XR Spine Thoracic 2 Views (11/14/2023 1:51 PM RAG SHREDDER) Anatomical Region Laterality Modality Spine N/A Computed Radiogr aphy 11/14/2023 2:19 PM RAG SHREDDER Impressions 11/14/2023 2:19 PM RAG SHREDDER 1. ??Unchanged combined posterior and anterior instrumented L4-L5 fusion. Electronically signed by: Stefan Gee M.D. Narrative 11/14/2023 2:19 PM RAG SHREDDER EXAMINATION: XR SPINE CERVICAL 2 OR 3 [...] by: Stefan Gee M.D. Rosa M Myers COURTESY BUS DRIVER IMG XR PROCEDURES F inal Result * XR Spine Lumbar 2 or 3 Views (11/14/2023 1:51 PM RAG SHREDDER) Anatomical Region Laterality Modality Spine N/A Computed Radiogr aphy 11/14/2023 2:19 PM RAG SHREDDER Impressions 11/14/2023 2:19 PM RAG SHREDDER 1. ??Unchanged combined posterior and anterior instrumented L4-L5 fusion. Electronically signed by: Stefan Gee M.D. Narrative 11/14/2023 2:19 PM RAG SHREDDER EXAMINATION: XR SPINE CERVICAL 2 OR 3 [...] by: Stefan Gee M.D. Rosa M Myers NP IMG XR PROCEDURES F inal Result * XR Spine Cervical 2 or 3 Views (11/14/2023 1:50 PM RAG SHREDDER) Anatomical Region Laterality Modality Spine N/A Computed Radiogr aphy 11/14/2023 2:19 PM RAG SHREDDER Impressions 11/14/2023 2:19 PM RAG SHREDDER 1. ??Unchanged combined posterior and anterior instrumented L4-L5 fusion. Electronically signed by: Stefan Gee M.D. Narrative 11/14/2023 2:19 PM RAG SHREDDER EXAMINATION: XR SPINE CERVICAL 2 OR 3 [...] by: Stefan Gee M.D. Rosa M Myers COURTESY [employer] DRIVER IMG XR PROCEDURES F inal Result * POCT glucose (11/14/2023 11:52 AM RAG SHREDDER) Glucose, POC 150 70 - 199 mg/dL [facility] Blood 11/14/2023 11:5 2 AM RAG SHREDDER 11/14/2023 11:52 AM RAG SHREDDER Marcial Vu Jr., MD LAB POCT ORDERABLES - DEVICE Final Result [facility] Department [place] [address] * POCT glucose (11/14/2023 8:04 AM RAG SHREDDER) Glucose, POC 144 70 - 199 mg/dL [facility] Blood 11/14/2023 8:04 AM RAG SHREDDER 11/14/2023 8:04 AM RAG SHREDDER Marcial Vu Jr., MD LAB POCT ORDERABLES - DEVICE Final Result Performing Organization Address [facility] Co de Phone Number [facility] [place] [address] * POCT glucose (11/13/2023 8:11 PM RAG SHREDDER) Glucose, POC 150 70 - 199 mg/dL [facility] Blood 11/13/2023 8:11 PM RAG SHREDDER 11/13/2023 8:11 PM RAG SHREDDER us Marcial Vu Jr., MD LAB POCT ORDERABLES - DEVICE Final Result Performing Organization Address [facility] Co de Phone Number [facility] [place] [address] * eGFR (11/13/2023 8:07 PM RAG SHREDDER) eGFR >90 >=60 mL/min/1. 73 m2 [facility] Comment: Interpretive Data Reference Interval Normal [...] last reviewed 2021. Blood 11/13/2023 8:07 PM RAG SHREDDER 11/13/2023 8:25 PM RAG SHREDDER Francisco Javier Aleman COURTESY [employer] DRIVER LAB BLOOD ORDERABLES Fi nal Result Performing Organization Address [facility]/ZIP Co de Phone Number [facility] Department [place] [address] * Phosphorus (11/13/2023 8:07 PM RAG SHREDDER) Phosphorus, pl 2.7 2.3 - 4.5 mg/dL [facility] Blood 11/13/2023 8:07 PM RAG SHREDDER 11/13/2023 8:20 PM RAG SHREDDER Francisco Javier Aleman NP LAB BLOOD ORDERABLES Fi nal Result Performing Organization Address [facility] Co de Phone Number [facility] Department [place] [address] * Magnesium (11/13/2023 8:07 PM RAG SHREDDER) Magnesium 2.1 1.4 - 2.5 mg/dL [facility] Blood 11/13/2023 8:07 PM RAG SHREDDER 11/13/2023 8:20 PM RAG SHREDDER Francisco Javier Aleman NP LAB BLOOD ORDERABLES Fi nal Result Performing Organization Address [facility] de Phone Number [facility] Department [place] [address] * (ABNORMAL) CBC without differential (11/13/2023 8:07 PM RAG SHREDDER) [facility] WBC 12.6(H) 3.8 - 9.9 K/cumm [facility] Hgb 9.1(L) 13.0 - 17.5 g/dL [facility] Hct 28.0(L) 38.9 - 50.3 % [facility] Plt 188 150 - 400 K/cumm [facility] MPV 11.3 9.1 - 12.3 fL [facility] RBC 3.06(L) 4.30 - 5.80 M/cumm [facility] MCV 91.5 81.3 - 96.4 fL [facility] MCH 29.7 27.1 - 33.3 pg [facility] MCHC 32.5 32.3 - 35.7 g/dL [facility] RDW CV 14.0 11.1 - 14.9 % [facility] RDW SD 45.8 35.7 - 48.1 fL [facility] NRBC abs 0.00 0.00 - 0.01 K/cumm [facility] Blood 11/13/2023 8:07 PM RAG SHREDDER 11/13/2023 8:20 PM RAG SHREDDER Francisco Javier Aleman NP LAB BLOOD ORDERABLES Fi nal Result Performing Organization Address [facility] Co de Phone Number [facility] Department [place] [address] * (ABNORMAL) Basic metabolic panel (11/13/2023 8:07 PM RAG SHREDDER) [facility] Sodium 136 135 - 145 mmol/L [facility] Potassium, pl 4.6 3.3 - 4.9 mmol/L [facility] Chloride 102 97 - 110 mmol/L [facility] CO2 26 22 - 32 mmol/L [facility] Anion gap 8 2 - 15 mmol/L [facility] BUN 27(H) 6 - 25 mg/dL [facility] Creatinine 0.71(L) 0.80 - 1.30 mg/dL [facility] Glucose 138 70 - 199 mg/dL [facility] Comment: Interpretive Data Fasting glucose [...] 2022. Calcium 8.4(L) 8.5 - 10.3 mg/dL [facility] Blood 11/13/2023 8:07 PM RAG SHREDDER 11/13/2023 8:20 PM RAG SHREDDER us Francisco Javier Aleman NP LAB BLOOD ORDERABLES Fi nal Result [facility] [place] [address] * POCT glucose (11/13/2023 4:58 PM RAG SHREDDER) Glucose, POC 188 70 - 199 mg/dL [facility] Blood 11/13/2023 4:58 PM RAG SHREDDER 11/13/2023 4:58 PM RAG SHREDDER us Marcial Vu Jr., MD LAB POCT ORDERABLES - DEVICE Final Result [facility] [place] [address] * POCT glucose (11/13/2023 12:22 PM RAG SHREDDER) Glucose, POC 138 70 - 199 mg/dL [facility] Blood 11/13/2023 12:2 2 PM RAG SHREDDER 11/13/2023 12:22 PM RAG SHREDDER us Marcial Vu Jr., MD LAB POCT ORDERABLES - DEVICE Final Result Performing Organization Address [facility] Co de Phone Number [facility] [place] [address] * POCT glucose (11/13/2023 7:34 AM RAG SHREDDER) Glucose, POC 138 70 - 199 mg/dL [facility] Blood 11/13/2023 7:34 AM RAG SHREDDER 11/13/2023 7:34 AM RAG SHREDDER us Marcial Vu Jr., MD LAB POCT ORDERABLES - DEVICE Final Result Performing Organization Address [facility] de Phone Number [facility] [place] [address] * (ABNORMAL) POCT glucose (11/12/2023 9:34 PM RAG SHREDDER) Glucose, POC 206(H) 70 - 199 mg/dL [facility] Blood 11/12/2023 9:34 PM RAG SHREDDER 11/12/2023 9:34 PM RAG SHREDDER us Marcial Vu Jr., MD LAB POCT ORDERABLES - DEVICE Final Result Performing Organization Address [facility] [place] [address] * POCT glucose (11/12/2023 5:15 PM RAG SHREDDER) Glucose, POC 180 70 - 199 mg/dL [facility] Blood 11/12/2023 5:15 PM RAG SHREDDER 11/12/2023 5:15 PM RAG SHREDDER us Marcial Vu Jr., MD LAB POCT ORDERABLES - DEVICE Final Result Performing Organization Address City/[facility] Co de Phone Number [facility] [place] [address] * POCT glucose (11/12/2023 11:25 AM RAG SHREDDER) Glucose, POC 161 70 - 199 mg/dL [facility] Blood 11/12/2023 11:2 5 AM RAG SHREDDER 11/12/2023 11:25 AM RAG SHREDDER Marcial Vu Jr., MD LAB POCT ORDERABLES - DEVICE Final Result Performing Organization Address [facility] de Phone Number [facility] [place] [address] * POCT glucose (11/12/2023 7:59 AM RAG SHREDDER) Glucose, POC 128 70 - 199 mg/dL [facility] Blood 11/12/2023 7:59 AM RAG SHREDDER 11/12/2023 7:59 AM RAG SHREDDER Marcial Vu Jr., MD LAB POCT ORDERABLES - DEVICE Final Result Performing Organization Address [facility] Co de Phone Number [facility] Department [place] [address] * POCT glucose (11/11/2023 9:38 PM RAG SHREDDER) Glucose, POC 166 70 - 199 mg/dL [facility] Blood 11/11/2023 9:38 PM RAG SHREDDER 11/11/2023 9:38 PM RAG SHREDDER Marcial Vu Jr., MD LAB POCT ORDERABLES - DEVICE Final Result Performing Organization Address City/[facility] Co de Phone Number [facility] Department [place] [address] * eGFR (11/11/2023 9:35 PM RAG SHREDDER) eGFR >90 >=60 mL/min/1. 73 m2 [facility] [...] last reviewed 2021. Blood 11/11/2023 9:35 PM RAG SHREDDER 11/11/2023 9:54 PM RAG SHREDDER us Vicki Rehman NP LAB BLOOD ORDERABLES F inal Result [facility] Department [place] [address] * Phosphorus (11/11/2023 9:35 PM RAG SHREDDER) Phosphorus, pl 2.4 2.3 - 4.5 mg/dL [facility] Blood 11/11/2023 9:35 PM RAG SHREDDER 11/11/2023 9:54 PM RAG SHREDDER Vicki Rehman NP LAB BLOOD ORDERABLES F inal Result [facility] [place] [address] * Magnesium (11/11/2023 9:35 PM RAG SHREDDER) [facility] Magnesium 2.1 1.4 - 2.5 mg/dL [facility] Blood 11/11/2023 9:35 PM RAG SHREDDER 11/11/2023 9:54 PM RAG SHREDDER Vicki Rehman COURTESY [employer] DRIVER LAB BLOOD ORDERABLES F inal Result Performing Organization Address [facility] de Phone Number [facility] Department [place] [address] * (ABNORMAL) CBC without differential (11/11/2023 9:35 PM RAG SHREDDER) [facility] WBC 9.1 3.8 - 9.9 K/cumm [facility] Hgb 8.8(L) 13.0 - 17.5 g/dL [facility] Hct 25.8(L) 38.9 - 50.3 % [facility] Plt 187 150 - 400 K/cumm [facility] MPV 11.1 9.1 - 12.3 fL [facility] RBC 2.88(L) 4.30 - 5.80 M/cumm [facility] MCV 89.6 81.3 - 96.4 fL [facility] MCH 30.6 27.1 - 33.3 pg [facility] MCHC 34.1 32.3 - 35.7 g/dL [facility] RDW CV 13.8 11.1 - 14.9 % [facility] RDW SD 45.6 35.7 - 48.1 fL [facility] NRBC abs 0.00 0.00 - 0.01 K/cumm [facility] Blood 11/11/2023 9:35 PM RAG SHREDDER 11/11/2023 9:54 PM RAG SHREDDER Vicki Rehman NP LAB BLOOD ORDERABLES F inal Result [facility] Department [place] [address] * (ABNORMAL) Basic metabolic panel (11/11/2023 9:35 PM RAG SHREDDER) [facility] Sodium 135 135 - 145 mmol/L [facility] Potassium, pl 4.6 3.3 - 4.9 mmol/L [facility] Chloride 103 97 - 110 mmol/L [facility] CO2 24 22 - 32 mmol/L [facility] Anion gap 8 2 - 15 mmol/L [facility] BUN 22 6 - 25 mg/dL [facility] Creatinine 0.81 0.80 - 1.30 mg/dL [facility] Glucose 159 70 - 199 mg/dL [facility] Comment: Interpretive Data Fasting glucose [...] 2022. Calcium 8.2(L) 8.5 - 10.3 mg/dL [facility] Blood 11/11/2023 9:35 PM RAG SHREDDER 11/11/2023 9:54 PM RAG SHREDDER Vicki Rehman NP LAB BLOOD ORDERABLES F inal Result Performing Organization Address [facility]/ZIP Co de Phone Number [facility] Department [place] [address] * POCT glucose (11/11/2023 5:37 PM RAG SHREDDER) [facility] Glucose, POC 103 70 - 199 mg/dL [facility] Blood 11/11/2023 5:37 PM RAG SHREDDER 11/11/2023 5:37 PM RAG SHREDDER Marcial Vu Jr., MD LAB POCT ORDERABLES - DEVICE Final Result Performing Organization Address City/[facility] Co de Phone Number [facility] Department [place] [address] * Transfuse RBC (11/11/2023 5:22 PM RAG SHREDDER) Blood Dorie Sofia COURTESY [employer] DRIVER BLOOD TRANSFUSION ORDER CLEMENTINE Final Result Performing Organization Address [facility] de Phone Number [facility] Department [place] [address] * Transfuse RBC: 1 Units (11/11/2023 5:22 PM RAG SHREDDER) Blood Dorie Sofia [employer] DRIVER BLOOD TRANSFUSION ORDER CLEMENTINE Final Result * (ABNORMAL) CBC without differential (11/11/2023 5:08 PM RAG SHREDDER) [facility] WBC 10.1(H) 3.8 - 9.9 K/cumm [facility] Hgb 9.7(L) 13.0 - 17.5 g/dL [facility] Hct 29.6(L) 38.9 - 50.3 % [facility] Plt 226 150 - 400 K/cumm [facility] MPV 10.9 9.1 - 12.3 fL [facility] RBC 3.24(L) 4.30 - 5.80 M/cumm [facility] MCV 91.4 81.3 - 96.4 fL [facility] MCH 29.9 27.1 - 33.3 pg [facility] MCHC 32.8 32.3 - 35.7 g/dL [facility] RDW CV 13.9 11.1 - 14.9 % [facility] RDW SD 47.0 35.7 - 48.1 fL [facility] NRBC abs 0.00 0.00 - 0.01 K/cumm [facility] Blood 11/11/2023 5:0 8 PM RAG SHREDDER 11/11/2023 5:32 PM RAG SHREDDER Narrative [facility] - 11/11/2023 5:41 PM RAG SHREDDER 1 hour after transfusion of red blood cells is complete Dorie Sofia [employer] DRIVER LAB BLOOD ORDERABLES Fi nal Result Performing Organization Address [facility] Co de Phone Number [facility] [place] [address] * (ABNORMAL) Vancomycin level trough (11/11/2023 2:44 PM RAG SHREDDER) Vancomycin trough 21.1(H) 10.0 - 20.0 mcg/mL [facility] Comment:Reviewed Blood 11/11/2023 2:44 PM RAG SHREDDER 11/11/2023 2:50 PM RAG SHREDDER Dorie Sofia [employer]ES[employer] DRIVER LAB BLOOD ORDERABLES Fi nal Result Performing Organization Address [facility] Co de Phone Number [facility] Department [place] [address] * POCT glucose (11/11/2023 12:11 PM RAG SHREDDER) Glucose, POC 155 70 - 199 mg/dL [facility] Blood 11/11/2023 12:1 1 PM RAG SHREDDER 11/11/2023 12:11 PM RAG SHREDDER Marcial Vu Jr., MD LAB POCT ORDERABLES - DEVICE Final Result Performing Organization Address [facility] Co de Phone Number [facility] Department [place] [address] * Type and screen (11/11/2023 11:29 AM RAG SHREDDER) Jigna, indirect Negative ABO Rh O Positive [facility] Blood 11/11/2023 11:2 9 AM RAG SHREDDER 11/11/2023 11:42 AM RAG SHREDDER Narrative [facility] - 11/11/2023 12:35 PM RAG SHREDDER Has the patient had Daratumumab or Isatuximab in the past 6 months?->Unknown Dorie Sofia NP LAB BLOOD BANK TEST ORD ERABLES Final Result Performing Organization Address [facility] [place] [address] * Prepare RBC: 1 Units (11/11/2023 10:08 AM RAG SHREDDER) Pathologist [facility] Product code [id number] Unit Number [id number] [facility] Product Blood Type OPOS [facility] Dispense Status PRESUMED TRANSFUSED [facility] Blood 11/11/2023 10:0 8 AM RAG SHREDDER 11/11/2023 10:09 AM RAG SHREDDER Narrative [facility] - 11/12/2023 12:45 AM RAG SHREDDER Are special requirements needed? (All products are leukoreduced and CMV- safe)- >No Date required:-[id number] LRRBC # of [id number] Reasons:-Active bleeding, Hgb <8 g/dL} Dorie Sofia NP BLOOD BANK PRODUCT ORDE RABLES Final Result Performing Organization Address [facility]/[place] [address] * POCT glucose (11/11/2023 8:33 AM RAG SHREDDER) Glucose, POC 141 70 - 199 mg/dL [facility] Blood 11/11/2023 8:33 AM RAG SHREDDER 11/11/2023 8:33 AM RAG SHREDDER us Marcial Vu Jr., MD LAB POCT ORDERABLES - DEVICE Final Result Performing Organization Address [facility] Co de Phone Number [facility] Department [place] [address] * eGFR (11/10/2023 11:13 PM RAG SHREDDER) eGFR >90 >=60 mL/min/1. 73 m2 [facility] Comment: Interpretive Data Reference Interval Normal [...] reviewed 2021. Blood 11/10/2023 11:1 3 PM RAG SHREDDER 11/10/2023 11:58 PM RAG SHREDDER us Vicki Rehman NP LAB BLOOD ORDERABLES F inal Result Performing Organization Address [facility] Co de Phone Number [facility] [place] [address] * Lidocaine level (11/10/2023 11:13 PM RAG SHREDDER) [facility] Lidocaine (Xylocaine) 1.9 1.5 - 5.0 mcg/mL [facility] Blood 11/10/2023 11:1 3 PM RAG SHREDDER 11/10/2023 11:55 PM RAG SHREDDER Marcial Vu Jr., MD LAB BLOOD ORDER[place] [address] * Phosphorus (11/10/2023 11:13 PM RAG SHREDDER) [facility] Phosphorus, pl 2.4 2.3 - 4.5 mg/dL [facility] Blood 11/10/2023 11:1 3 PM RAG SHREDDER 11/10/2023 11:55 PM RAG SHREDDER Vicki Rehman NP LAB BLOOD ORDERABLES F inal Result Performing Organization Address [facility] Co de Phone Number [facility] Department [place] [address] * Magnesium (11/10/2023 11:13 PM RAG SHREDDER) [facility] Magnesium 2.3 1.4 - 2.5 mg/dL [facility] Blood 11/10/2023 11:1 3 PM RAG SHREDDER 11/10/2023 11:55 PM RAG SHREDDER Vicki Rehman COURTESY [employer] DRIVER LAB BLOOD ORDERABLES F inal Result Performing Organization Address City/[facility]/ZIP Co de Phone Number [facility] Department [place] [address] * (ABNORMAL) CBC without differential (11/10/2023 11:13 PM RAG SHREDDER) [facility] WBC 9.2 3.8 - 9.9 K/cumm [facility] Hgb 7.5(L) 13.0 - 17.5 g/dL [facility] Hct 22.6(L) 38.9 - 50.3 % [facility] Plt 211 150 - 400 K/cumm [facility] MPV 11.1 9.1 - 12.3 fL [facility] RBC 2.47(L) 4.30 - 5.80 M/cumm [facility] MCV 91.5 81.3 - 96.4 fL [facility] MCH 30.4 27.1 - 33.3 pg [facility] MCHC 33.2 32.3 - 35.7 g/dL [facility] RDW CV 14.0 11.1 - 14.9 % [facility] RDW SD 46.8 35.7 - 48.1 fL [facility] NRBC abs 0.00 0.00 - 0.01 K/cumm [facility] Blood 11/10/2023 11:1 3 PM RAG SHREDDER 11/10/2023 11:41 PM RAG SHREDDER Vicki Rehman NP LAB BLOOD ORDERABLES F inal Result [facility] Department [place] [address] * (ABNORMAL) Basic metabolic panel (11/10/2023 11:13 PM RAG SHREDDER) [facility] Sodium 135 135 - 145 mmol/L [facility] Potassium, pl 4.3 3.3 - 4.9 mmol/L [facility] Chloride 104 97 - 110 mmol/L [facility] CO2 24 22 - 32 mmol/L [facility] Anion gap 7 2 - 15 mmol/L [facility] BUN 22 6 - 25 mg/dL [facility] Creatinine 0.82 0.80 - 1.30 mg/dL [facility] Glucose 118 70 - 199 mg/dL [facility] Comment: Interpretive Data Fasting glucose [...] 2022. Calcium 7.9(L) 8.5 - 10.3 mg/dL [facility] Blood 11/10/2023 11:1 3 PM RAG SHREDDER 11/10/2023 11:55 PM RAG SHREDDER Result [facility] Vicki Rehman NP LAB BLOOD ORDERABLES F inal Result Performing Organization Address [facility] Co de Phone Number [facility] Department [place] [address] * POCT glucose (11/10/2023 8:50 PM RAG SHREDDER) Glucose, POC 170 70 - 199 mg/dL [facility] Blood 11/10/2023 8:50 PM RAG SHREDDER 11/10/2023 8:50 PM RAG SHREDDER Result [facility] Marcial Vu Jr., MD LAB POCT ORDERABLES - DEVICE Final Result Performing Organization Address [facility]/ZIP Co de Phone Number [facility] [place] [address] * (ABNORMAL) POCT glucose (11/10/2023 5:31 PM RAG SHREDDER) Glucose, POC 207(H) 70 - 199 mg/dL [facility] Blood 11/10/2023 5:31 PM RAG SHREDDER 11/10/2023 5:31 PM RAG SHREDDER Marcial Vu Jr., MD LAB POCT ORDERABLES - DEVICE Final Result Performing Organization Address City/[facility]/ZIP Co de Phone Number [facility] [place] [address] * (ABNORMAL) POCT glucose (11/10/2023 11:47 AM RAG SHREDDER) Glucose, POC 200(H) 70 - 199 mg/dL [facility] Blood 11/10/2023 11:4 7 AM RAG SHREDDER 11/10/2023 11:47 AM RAG SHREDDER us Marcial Vu Jr., MD LAB POCT ORDERABLES - DEVICE Final Result Performing Organization Address [facility] Co de Phone Number [facility] [place] [address] * POCT glucose (11/10/2023 8:00 AM RAG SHREDDER) Glucose, POC 149 70 - 199 mg/dL [facility] Blood 11/10/2023 8:00 AM RAG SHREDDER 11/10/2023 8:00 AM RAG SHREDDER us Marcial Vu Jr., MD LAB POCT ORDERABLES - DEVICE Final Result Performing Organization Address City/[facility] Co de Phone Number [facility] [place] [address] * Vancomycin level trough Draw trough 30 minutes prior to 4th dose. (11/10/2023 2:59 AM RAG SHREDDER) Vancomycin trough 19.0 10.0 - 20.0 mcg/mL [facility] Blood 11/10/2023 2:59 AM RAG SHREDDER 11/10/2023 3:15 AM RAG SHREDDER Narrative [facility] [facility] - 11/10/2023 3:47 AM RAG SHREDDER Draw trough 30 minutes prior to 4th dose. us Vicki Nathalie Shero COURTESY BUS DRIVER LAB BLOOD ORDERABLES F inal Result [facility] Department [place] [address] * (ABNORMAL) Basic metabolic panel (11/09/2023 11:30 PM RAG SHREDDER) Sodium 135 135 - 145 mmol/L [facility] Potassium, pl 4.7 3.3 - 4.9 mmol/L [facility] Chloride 104 97 - 110 mmol/L [facility] CO2 23 22 - 32 mmol/L [facility] Anion gap 8 2 - 15 mmol/L [facility] BUN 20 6 - 25 mg/dL [facility] Creatinine 0.99 0.80 - 1.30 mg/dL [facility] Glucose 138 70 - 199 mg/dL [facility] Comment: Interpretive Data Fasting glucose [...] 2022. Calcium 8.3(L) 8.5 - 10.3 mg/dL [facility] Blood 11/09/2023 11:3 0 PM RAG SHREDDER 11/09/2023 11:47 PM RAG SHREDDER us Marcial Vu Jr., MD LAB BLOOD ORDERABLE S Final Result Performing Organization Address [facility] Co de Phone Number [facility] Department [place] [address] * eGFR (11/09/2023 11:30 PM RAG SHREDDER) eGFR 81 >=60 mL/min/1. 73 m2 [facility] Comment: Interpretive Data Reference Interval Normal [...] reviewed 2021. Blood 11/09/2023 11:3 0 PM RAG SHREDDER 11/09/2023 11:57 PM RAG SHREDDER us Marcial Vu Jr., MD LAB BLOOD ORDERABLE S Final Result Performing Organization Address City/State/[facility] Co de Phone Number [facility] Department [place] [address] * (ABNORMAL) CBC without differential (11/09/2023 11:30 PM RAG SHREDDER) WBC 10.9(H) 3.8 - 9.9 K/cumm [facility] Hgb 8.6(L) 13.0 - 17.5 g/dL [facility] Hct 25.3(L) 38.9 - 50.3 % [facility] Plt 225 150 - 400 K/cumm [facility] MPV 11.1 9.1 - 12.3 fL [facility] RBC 2.78(L) 4.30 - 5.80 M/cumm [facility] MCV 91.0 81.3 - 96.4 fL [facility] MCH 30.9 27.1 - 33.3 pg [facility] MCHC 34.0 32.3 - 35.7 g/dL [facility] RDW CV 14.2 11.1 - 14.9 % [facility] RDW SD 48.0 35.7 - 48.1 fL [facility] NRBC abs 0.00 0.00 - 0.01 K/cumm [facility] Blood 11/09/2023 11:3 0 PM RAG SHREDDER 11/09/2023 11:56 PM RAG SHREDDER us Amanda Copeland MD LAB BLOOD ORDERABLES F inal Result Performing Organization Address [facility] Co de Phone Number [facility] [place] [address] * Lidocaine level (11/09/2023 11:30 PM RAG SHREDDER) Pathologist [facility] Lidocaine (Xylocaine) 2.7 1.5 - 5.0 mcg/mL [facility] Blood 11/09/2023 11:3 0 PM RAG SHREDDER 11/09/2023 11:47 PM RAG SHREDDER Narrative [facility] - 11/10/2023 12:30 AM RAG SHREDDER Draw 24 hours after infusion started. us Vicki Rehman NP LAB BLOOD ORDERABLES F inal Result Performing Organization Address [facility] Co de Phone Number [facility] [place] [address] * eGFR (11/09/2023 8:41 PM RAG SHREDDER) [facility] eGFR 81 >=60 mL/min/1. 73 m2 [facility] Comment: Interpretive Data Reference Interval Normal [...] last reviewed 2021. Blood 11/09/2023 8:41 PM RAG SHREDDER 11/09/2023 9:08 PM RAG SHREDDER Vicki Rehman NP LAB BLOOD ORDERABLES F inal Result Performing Organization Address City/[facility]/ZIP Co de Phone Number [facility] [place], [place] [id number] * Phosphorus (11/09/2023 8:41 PM RAG SHREDDER) Phosphorus, pl 3.4 2.3 - 4.5 mg/dL [facility] Blood 11/09/2023 8:41 PM RAG SHREDDER 11/09/2023 9:08 PM RAG SHREDDER Vicki Rehman NP LAB BLOOD ORDERABLES F inal Result Performing Organization Address City/[facility]/ZIP Co de Phone Number [facility] [place] [address] * Magnesium (11/09/2023 8:41 PM RAG SHREDDER) [facility] Magnesium 2.3 1.4 - 2.5 mg/dL [facility] Blood 11/09/2023 8:41 PM RAG SHREDDER 11/09/2023 9:08 PM RAG SHREDDER Vicki Rehman NP LAB BLOOD ORDERABLES F inal Result Performing Organization Address City/[facility]/ZIP Co de Phone Number [facility] Department [place] [address] * (ABNORMAL) CBC without differential (11/09/2023 8:41 PM RAG SHREDDER) [facility] WBC 11.9(H) 3.8 - 9.9 K/cumm [facility] Hgb 8.5(L) 13.0 - 17.5 g/dL [facility] Hct 25.7(L) 38.9 - 50.3 % [facility] Plt 219 150 - 400 K/cumm [facility] MPV 11.1 9.1 - 12.3 fL [facility] RBC 2.82(L) 4.30 - 5.80 M/cumm [facility] MCV 91.1 81.3 - 96.4 fL [facility] MCH 30.1 27.1 - 33.3 pg [facility] MCHC 33.1 32.3 - 35.7 g/dL [facility] RDW CV 14.4 11.1 - 14.9 % [facility] RDW SD 47.6 35.7 - 48.1 fL [facility] NRBC abs 0.00 0.00 - 0.01 K/cumm [facility] Blood 11/09/2023 8:41 PM RAG SHREDDER 11/09/2023 9:08 PM RAG SHREDDER Vicki Rehman NP LAB BLOOD ORDERABLES F inal Result Performing Organization Address City/[facility]/ZIP Co de Phone Number [facility] Department [place] [address] * (ABNORMAL) Basic metabolic panel (11/09/2023 8:41 PM RAG SHREDDER) Sodium 133(L) 135 - 145 mmol/L [facility] Potassium, pl 5.0(H) 3.3 - 4.9 mmol/L [facility] Comment:Hemolyzed; Potassium value may be falsely elevated by as much as 0.3-0.5 mmol/L. Suggest redraw and reanalysis. Chloride 102 97 - 110 mmol/L [facility] CO2 22 22 - 32 mmol/L [facility] Anion gap 9 2 - 15 mmol/L [facility] BUN 20 6 - 25 mg/dL [facility] Creatinine 0.99 0.80 - 1.30 mg/dL [facility] Glucose 189 70 - 199 mg/dL [facility] Comment: Interpretive Data Fasting glucose [...] 2022. Calcium 8.2(L) 8.5 - 10.3 mg/dL [facility] Blood 11/09/2023 8:41 PM RAG SHREDDER 11/09/2023 9:08 PM RAG SHREDDER us Vicki Rehman NP LAB BLOOD ORDERABLES F inal Result [facility] Department [place] [address] * POCT glucose (11/09/2023 8:38 PM RAG SHREDDER) Glucose, POC 196 70 - 199 mg/dL [facility] Blood 11/09/2023 8:38 PM RAG SHREDDER 11/09/2023 8:38 PM RAG SHREDDER Marcial Vu Jr., MD LAB POCT ORDERABLES - DEVICE Final Result Performing Organization Address [facility] de Phone Number [facility] [place] [address] * POCT glucose (11/09/2023 4:47 PM RAG SHREDDER) Glucose, POC 145 70 - 199 mg/dL [facility] Blood 11/09/2023 4:47 PM RAG SHREDDER 11/09/2023 4:47 PM RAG SHREDDER us Marcial Vu Jr., MD LAB POCT ORDERABLES - DEVICE Final Result Performing Organization Address [facility] Phone Number [facility] [place] [address] * POCT glucose (11/09/2023 3:18 PM RAG SHREDDER) Glucose, POC 161 70 - 199 mg/dL [facility] Blood 11/09/2023 3:18 PM RAG SHREDDER 11/09/2023 3:18 PM RAG SHREDDER Marcial Vu Jr., MD LAB POCT ORDERABLES - DEVICE Final Result Performing Organization Address [facility] [place] [address] * CT Chest PE (CTA) W Contrast (11/09/2023 12:22 PM RAG SHREDDER) Anatomical Region Laterality Modality Body N/A Computed Tomogra phy 11/09/2023 12:4 9 PM RAG SHREDDER Impressions 11/09/2023 12:49 PM RAG SHREDDER 1. ??Interval decrease in burden of bilateral [...] Micha Barajas M.D. Narrative 11/09/2023 12:49 PM RAG SHREDDER EXAMINATION: CT CHEST PE (CTA) W CONTRAST [...] Result * Lidocaine level (11/09/2023 11:43 AM RAG SHREDDER) Lidocaine (Xylocaine) 3.4 1.5 - 5.0 mcg/mL [facility] Blood 11/09/2023 11:4 3 AM RAG SHREDDER 11/09/2023 12:04 PM RAG SHREDDER us Vicki Rehman NP LAB BLOOD ORDERABLES F inal Result Performing Organization Address [facility] Co de Phone Number [facility] Department [place] [address] * POCT glucose (11/09/2023 11:04 AM RAG SHREDDER) Glucose, POC 147 70 - 199 mg/dL [facility] Blood 11/09/2023 11:0 4 AM RAG SHREDDER 11/09/2023 11:04 AM RAG SHREDDER us Marcial Vu Jr., MD LAB POCT ORDERABLES - DEVICE Final Result Performing Organization Address [facility] Co de Phone Number [facility] Department [place] [address] * Critical Care (11/09/2023 9:22 AM RAG SHREDDER) Narrative Silver Brown MD - 11/09/2023 9:22 AM RAG SHREDDER Vicki Rehman NP ? 11/09/2023 ??3:00 PM [...] plan with the patient's team and other medical/pmo consultant staff. This time was in addition [...] Insert Vena Cava Filter (11/09/2023 8:47 AM RAG SHREDDER) Anatomical Region Laterality Modality Body N/A X-Ray Angiograph y 11/09/2023 10:4 9 AM RAG SHREDDER Impressions 11/09/2023 11:50 AM RAG SHREDDER Successful placement of an IVC ??filter PLAN: A retrievable filter has been placed. ??If clinically indicated, the filter may be retrieved when the patient is appropriately anticoagulated. ??In order to schedule filter removal please call [phone]. ??This filter can also be left in place as a permanent IVC filter if appropriate. Dictated by: Honorio Hannon M.D. The radiology attending physician has personally reviewed this study, and had reviewed and/or edited this written report and agrees with it. Electronically signed by: Nahun Albarado M.D. Narrative 11/09/2023 11:50 AM RAG SHREDDER EXAMINATION: ??INFERIOR VENA CAVAGRAM AND INFERIOR VENA [...] was obtained. Prior to beginning the procedure, [place] Protocol was performed to confirm the patient's [...] was obtained. Prior to beginning the procedure, [place] Protocol was performed to confirm the patient's [...] order to schedule filter removal please call [phone]. This filter can also be left in place as a permanent IVC filter if appropriate. Dictated by: Honorio Hannon M.D. The radiology attending physician has personally reviewed this study, and had reviewed and/or edited this written report and agrees with it. Electronically signed by: Nahun Albarado M.D. Vicki Rehman COURTESY BUS DRIVER IMG IR PROCEDURES Fide l Result * POCT glucose (11/09/2023 7:07 AM RAG SHREDDER) Glucose, POC 137 70 - 199 mg/dL [facility] Blood 11/09/2023 7:07 AM RAG SHREDDER 11/09/2023 7:07 AM RAG SHREDDER Marcial Vu Jr., MD LAB POCT ORDERABLES - DEVICE Final Result [facility] [place] [address] * POCT glucose (11/09/2023 3:24 AM RAG SHREDDER) Glucose, POC 160 70 - 199 mg/dL [facility] Blood 11/09/2023 3:24 AM RAG SHREDDER 11/09/2023 3:24 AM RAG SHREDDER Marcial Vu Jr., MD LAB POCT ORDERABLES - DEVICE Final Result Performing Organization Address [facility] Co de Phone Number [facility] One [facility] [place] [address] * POCT glucose (11/08/2023 11:49 PM RAG SHREDDER) Pathologist [facility] Glucose, POC 150 70 - 199 mg/dL [facility] Blood 11/08/2023 11:4 9 PM RAG SHREDDER 11/08/2023 11:49 PM RAG SHREDDER Marcial Vu Jr., MD LAB POCT ORDERABLES - DEVICE Final Result Performing Organization Address [facility] de Phone Number [facility] Department [place] [address] * eGFR (11/08/2023 9:01 PM RAG SHREDDER) [facility] eGFR >90 >=60 mL/min/1. 73 m2 [facility] Comment: Interpretive Data Reference Interval Normal [...] last reviewed 2021. Blood 11/08/2023 9:01 PM RAG SHREDDER 11/08/2023 9:18 PM RAG SHREDDER Vicki Rehman COURTESY BUS DRIVER LAB BLOOD ORDERABLES F inal Result Performing Organization Address City/[facility] Co de Phone Number [facility] [place] [address] * Phosphorus (11/08/2023 9:01 PM RAG SHREDDER) Phosphorus, pl 3.4 2.3 - 4.5 mg/dL [facility] Blood 11/08/2023 9:01 PM RAG SHREDDER 11/08/2023 9:18 PM RAG SHREDDER Vicki Rehman COURTESY BUS DRIVER LAB BLOOD ORDERABLES F inal Result Performing Organization Address [facility] de Phone Number [facility] [place] [address] * Magnesium (11/08/2023 9:01 PM RAG SHREDDER) Magnesium 2.3 1.4 - 2.5 mg/dL [facility] Blood 11/08/2023 9:01 PM RAG SHREDDER 11/08/2023 9:18 PM RAG SHREDDER Vicki Rehman COURTESY BUS DRIVER LAB BLOOD ORDERABLES F inal Result Performing Organization Address [facility] [place] [address] * (ABNORMAL) CBC without differential (11/08/2023 9:01 PM RAG SHREDDER) WBC 14.0(H) 3.8 - 9.9 K/cumm [facility] Hgb 11.0(L) 13.0 - 17.5 g/dL [facility] Hct 33.3(L) 38.9 - 50.3 % [facility] Plt 292 150 - 400 K/cumm [facility] MPV 11.1 9.1 - 12.3 fL [facility] RBC 3.62(L) 4.30 - 5.80 M/cumm [facility] MCV 92.0 81.3 - 96.4 fL [facility] MCH 30.4 27.1 - 33.3 pg [facility] MCHC 33.0 32.3 - 35.7 g/dL [facility] RDW CV 14.4 11.1 - 14.9 % [facility] RDW SD 49.0(H) 35.7 - 48.1 fL [facility] NRBC abs 0.00 0.00 - 0.01 K/cumm [facility] Blood 11/08/2023 9:01 PM RAG SHREDDER 11/08/2023 9:17 PM RAG SHREDDER Vicki Rehman NP LAB BLOOD ORDERABLES F inal Result [facility] Department [place] [address] * Basic metabolic panel (11/08/2023 9:01 PM RAG SHREDDER) Sodium 136 135 - 145 mmol/L [facility] Potassium, pl 4.4 3.3 - 4.9 mmol/L [facility] Chloride 102 97 - 110 mmol/L [facility] CO2 22 22 - 32 mmol/L [facility] Anion gap 12 2 - 15 mmol/L [facility] BUN 18 6 - 25 mg/dL [facility] Creatinine 0.83 0.80 - 1.30 mg/dL [facility] Glucose 192 70 - 199 mg/dL [facility] Comment: Interpretive Data Fasting glucose [...] 2022. Calcium 8.5 8.5 - 10.3 mg/dL [facility] Blood 11/08/2023 9:01 PM RAG SHREDDER 11/08/2023 9:18 PM RAG SHREDDER us Vicki Rehman NP LAB BLOOD ORDERABLES F inal Result Performing Organization Address City/[facility]/ZIP Co de Phone Number [facility] Department [place] [address] * POCT glucose (11/08/2023 7:10 PM RAG SHREDDER) [facility] Glucose, POC 169 70 - 199 mg/dL [facility] Blood 11/08/2023 7:10 PM RAG SHREDDER 11/08/2023 7:10 PM RAG SHREDDER Marcial Vu Jr., MD LAB POCT ORDERABLES - DEVICE Final Result Performing Organization Address City/[facility]/ZIP Co de Phone Number [facility] Department [place] [address] * Critical Care (11/08/2023 6:15 PM RAG SHREDDER) Narrative Dmitry Neal MD - 11/08/2023 6:15 PM RAG SHREDDER Nuvia Cantu NP ? 11/09/2023 ??5:16 AM [...] plan with the ICU team and other medical/pmo consultant staff, making frequent assessments and decisions [...] Lower Extremity Bilateral Complete (11/08/2023 3:07 PM RAG SHREDDER) Anatomical Region Laterality Modality Vascular Bilateral Ultrasound 11/08/2023 2:22 PM RAG SHREDDER Narrative 11/09/2023 1:26 AM RAG SHREDDER [facility] [employer] [facility] - Department of Vascular Surgery, Vascular Laboratory [address] [place] [address] Lower Extremity Venous Ultrasound Report Patient Name: HIRA EVANS WILLIAM : 1950 (73y 4m) Study Date: 11/08/2023 2:22:46 PM Gender: M Tech: VT Location: [id number] Ref Provider: VICKI REHMAN ?Quality: Adequate Order [...] INDICATIONS: recent bilateral PE - FINDINGS: Performing Floor Worker Well Service: Nola Walker RVT, RDMS. Bilateral: Venous Doppler [...] above. Electronically Signed By: Shayan Jameson MD [facility] 2023-11-09 01:25:55 RAG SHREDDER Procedure Note Shayan Jameson MD - 11/09/2023 [facility] [employer] - Department of Vascular Surgery,Vascular Laboratory [address] [place] [address] Lower Extremity Venous Ultrasound Report Patient Name: HIRA EVANS WILLIAM : 1950 (73y 4m) Study Date: 11/08/2023 2:22:46 PM Gender: M Tech: VT Location: [id number] Ref Provider: VICKI REHMAN Quality: Adequate Order Provider: VICKI REHMAN PROCEDURES: Vascular Report: Venous Duplex imaging was performed bilaterally in the lower extremities.The common femoral, femoral, popliteal, posterior tibial, peroneal veins wereevaluated for patency, spontaneity and phasicity with Doppler, compression and augmentationmaneuvers. Great saphenous vein proximal at the junction was evaluated with compressionmaneuvers. INDICATIONS: recent bilateral PE - FINDINGS: Performing Floor Worker Well Service: Nola Walker RVT, RDMS. Bilateral: Venous Doppler [...] above. Electronically Signed By: Shayan Jameson MD [facility] 2023-11-09 01:25:55 RAG SHREDDER Vicki Rehman NP IMG US PROCEDURES Fide l Result * POCT glucose (11/08/2023 3:05 PM RAG SHREDDER) Glucose, POC 171 70 - 199 mg/dL [facility] Blood 11/08/2023 3:05 PM RAG SHREDDER 11/08/2023 3:05 PM RAG SHREDDER Marcial Vu Jr., MD LAB POCT ORDERABLES - DEVICE Final Result [facility] Department [place] [address] * Critical Care (11/08/2023 12:12 PM RAG SHREDDER) Narrative Silver Brown MD - 11/08/2023 12:12 PM RAG SHREDDER Vicki Rehman NP ? 11/08/2023 ??5:33 PM [...] plan with the ICU team and other medical/pmo consultant staff, making frequent assessments and decisions [...] spent time documenting in the medical record Vicki Rehman NP IN CLINIC/BEDSIDE JOSE PRUITT Final Result * eGFR (11/08/2023 11:51 AM RAG SHREDDER) [facility] eGFR >90 >=60 mL/min/1. 73 m2 [facility] Comment: Interpretive Data Reference Interval Normal ?>/= [...] Inclusion of Race in Diagnosing Kidney Disease, BURAKSN 2020). The CKD-EPI equation should not be used for patients with unstable renal function and has not been validated in children and those over 70. Current interpretive data was last reviewed 2021. Blood 11/08/2023 11:5 1 AM RAG SHREDDER 11/08/2023 12:03 PM RAG SHREDDER Vicki Rehman NP LAB BLOOD ORDERABLES F inal Result Performing Organization Address City/[facility]/ZIP Co de Phone Number [facility] Department [place] [address] * (ABNORMAL) CBC without differential (11/08/2023 11:51 AM RAG SHREDDER) WBC 10.4(H) 3.8 - 9.9 K/cumm [facility] Hgb 9.2(L) 13.0 - 17.5 g/dL [facility] Hct 27.4(L) 38.9 - 50.3 % [facility] Plt 255 150 - 400 K/cumm [facility] MPV 11.0 9.1 - 12.3 fL [facility] RBC 3.03(L) 4.30 - 5.80 M/cumm [facility] MCV 90.4 81.3 - 96.4 fL [facility] MCH 30.4 27.1 - 33.3 pg [facility] MCHC 33.6 32.3 - 35.7 g/dL [facility] RDW CV 14.4 11.1 - 14.9 % [facility] RDW SD 47.6 35.7 - 48.1 fL [facility] NRBC abs 0.00 0.00 - 0.01 K/cumm [facility] Blood 11/08/2023 11:5 1 AM RAG SHREDDER 11/08/2023 12:18 PM RAG SHREDDER Vicki Rehman NP LAB BLOOD ORDERABLES F inal Result Performing Organization Address City/[facility]/ZIP Co de Phone Number [facility] Department [place] [address] * Protime-INR (11/08/2023 11:51 AM RAG SHREDDER) Pathologist [facility] PT 12.8 10.3 - 13.7 sec [facility] INR 1.12 0.90 - 1.20 [facility] Comment: Interpretive data Oral anticoagulant therapeutic ranges: Venous thromboembolism prophylaxis or treatment: 2.0-3.0 CARDIOLOGY Standard range: 2.0-3.0 High-intensity range: 2.5-3.5 Refer to indication-specific guidelines for appropriate target ranges for prosthetic heart valve replacement. Current interpretive data was last revised on 2019. Blood 11/08/2023 11:5 1 AM RAG SHREDDER 11/08/2023 12:08 PM RAG SHREDDER Vicki Rehman NP LAB BLOOD ORDERABLES F inal Result Performing Organization Address City/[facility]/ZIP Co de Phone Number [facility] Department [place] [address] * Phosphorus (11/08/2023 11:51 AM RAG SHREDDER) [facility] Phosphorus, pl 4.1 2.3 - 4.5 mg/dL [facility] Blood 11/08/2023 11:5 1 AM RAG SHREDDER 11/08/2023 12:03 PM RAG SHREDDER Vicki Rehman NP LAB BLOOD ORDERABLES F inal Result [facility] [place] [address] * Magnesium (11/08/2023 11:51 AM RAG SHREDDER) [facility] Magnesium 1.8 1.4 - 2.5 mg/dL [facility] Blood 11/08/2023 11:5 1 AM RAG SHREDDER 11/08/2023 12:03 PM RAG SHREDDER Vicki Rehman NP LAB BLOOD ORDERABLES F inal Result Performing Organization Address City/[facility]/ZIP Co de Phone Number [facility] Department [place] [address] * Calcium, ionized (11/08/2023 11:51 AM RAG SHREDDER) Pathologist [facility] Calcium, Ionized 4.58 4.50 - 5.10 mg/dL [facility] Blood 11/08/2023 11:5 1 AM RAG SHREDDER 11/08/2023 12:03 PM RAG SHREDDER Vickira Nathalie Rehman LAB BLOOD ORDERABLES F inal Result Performing Organization Address [facility] de Phone Number [facility] Department [place] [address] * (ABNORMAL) Basic metabolic panel (11/08/2023 11:51 AM RAG SHREDDER) Pathologist [facility] Sodium 138 135 - 145 mmol/L [facility] Potassium, pl 4.4 3.3 - 4.9 mmol/L [facility] Chloride 108 97 - 110 mmol/L [facility] CO2 22 22 - 32 mmol/L [facility] Anion gap 8 2 - 15 mmol/L [facility] BUN 15 6 - 25 mg/dL [facility] Creatinine 0.82 0.80 - 1.30 mg/dL [facility] Glucose 181 70 - 199 mg/dL [facility] Comment: Interpretive Data Fasting glucose [...] 2022. Calcium 8.0(L) 8.5 - 10.3 mg/dL [facility] Blood 11/08/2023 11:5 1 AM RAG SHREDDER 11/08/2023 12:03 PM RAG SHREDDER Vicki Rehman NP LAB BLOOD ORDERABLES F inal Result Performing Organization Address [facility] Co de Phone Number [facility] [facility] [place] [address] * POCT glucose (11/08/2023 11:41 AM RAG SHREDDER) Glucose, POC 173 70 - 199 mg/dL [facility] Blood 11/08/2023 11:4 1 AM RAG SHREDDER 11/08/2023 11:41 AM RAG SHREDDER Marcial Vu MD LAB POCT ORDERABLES - DEVICE Final Result Performing Organization Address City/[facility] Co de Phone Number [facility] [place] [address] * Transfuse plasma (11/08/2023 9:32 AM RAG SHREDDER) Blood Hood Kim MD BLOOD TRANSFUSION [facility] Final Result Performing Organization Address [facility] Co de Phone Number [facility] [place] [address] * (ABNORMAL) POC Blood Gas and Chemistries, Arterial - (11/08/2023 8:22 AM RAG SHREDDER) pH, Art POC 7.38 7.35 - 7.45 [facility] pCO2, Art POC 38 35 - 45 mmHg [facility] pO2, Art POC 153(H) 83 - 108 mmHg [facility] Na, POC 135 135 - 145 mmol/L [facility] K POC 4.5 3.3 - 4.9 mmol/L [facility] Comment: Interpretive Data This method is not able to assess for hemolysis, which may falsely increase potassium concentrations. If further testing is needed to evaluate this result, consider in-laboratory plasma potassium. Current Interpretive Data was last revised on 2022. Cl, POC 109 97 - 110 mmol/L [facility] Ionized Ca, POC 5.14(H) 4.50 - 5.10 mg/dL [facility] Glucose, POC 187 70 - 199 mg/dL [facility] Lactate, POC 0.8 0.7 - 2.2 mmol/L [facility] SO2 (mindy) arterial 99(H) 90 - 95 % [facility] Base excess, POC -2.3 mmol/L [facility] HCO3, Art POC 22 20 - 30 mmol/L [facility] Hct, POC 32.0(L) 41.4 - 51.6 % [facility] O2 Sat, Art POC (Calc) 99 % [facility] Total Hb, POC 10.6(L) 13.8 - 17.2 g/dL [facility] Blood 11/08/2023 8:22 AM RAG SHREDDER 11/08/2023 8:22 AM RAG SHREDDER Julia Ramos MD LAB POCT ORDERABLES - DE VICE Final Result Performing Organization Address City/[facility]/ZIP Co de Phone Number [facility] [place] [address] * Transfuse RBC (11/08/2023 7:37 AM RAG SHREDDER) Blood us Edmond Barker MD BLOOD TRANSFUSION ORD ERABLES Final Result [facility] [place] [address] * (ABNORMAL) POC Blood Gas and Chemistries, Arterial - (11/08/2023 7:05 AM RAG SHREDDER) pH, Art POC 7.42 7.35 - 7.45 [facility] pCO2, Art POC 33(L) 35 - 45 mmHg [facility] pO2, Art POC 156(H) 83 - 108 mmHg [facility] Na, POC 135 135 - 145 mmol/L [facility] K POC 3.8 3.3 - 4.9 mmol/L [facility] Comment: Interpretive Data This method is not able to assess for hemolysis, which may falsely increase potassium concentrations. If further testing is needed to evaluate this result, consider in-laboratory plasma potassium. Current Interpretive Data was last revised on 2022. Cl, POC 109 97 - 110 mmol/L [facility] Ionized Ca, POC 4.66 4.50 - 5.10 mg/dL [facility] Glucose, POC 146 70 - 199 mg/dL [facility] Lactate, POC 0.6(L) 0.7 - 2.2 mmol/L [facility] SO2 (mindy) arterial 99(H) 90 - 95 % [facility] Base excess, POC -2.6 mmol/L [facility] HCO3, Art POC 21 20 - 30 mmol/L [facility] Hct, POC 29.0(L) 41.4 - 51.6 % [facility] O2 Sat, Art POC (Calc) 99 % [facility] Total Hb, POC 9.8(L) 13.8 - 17.2 g/dL [facility] Blood 11/08/2023 7:05 AM RAG SHREDDER 11/08/2023 7:05 AM RAG SHREDDER Julia Ramos MD LAB POCT ORDERABLES - DE VICE Final Result [facility] [place] [address] * (ABNORMAL) POC Blood Gas and Chemistries, Arterial - (11/08/2023 6:00 AM RAG SHREDDER) pH, Art POC 7.39 7.35 - 7.45 [facility] pCO2, Art POC 40 35 - 45 mmHg [facility] pO2, Art POC 158(H) 83 - 108 mmHg [facility] Na, POC 136 135 - 145 mmol/L [facility] K POC 3.7 3.3 - 4.9 mmol/L [facility] Comment: Interpretive Data This method is not able to assess for hemolysis, which may falsely increase potassium concentrations. If further testing is needed to evaluate this result, consider in-laboratory plasma potassium. Current Interpretive Data was last revised on 2022. Cl, POC 109 97 - 110 mmol/L [facility] Ionized Ca, POC 4.53 4.50 - 5.10 mg/dL [facility] Glucose, POC 131 70 - 199 mg/dL [facility] Lactate, POC 0.7 0.7 - 2.2 mmol/L [facility] SO2 (mindy) arterial 100(H) 90 - 95 % [facility] Base excess, POC -0.7 mmol/L [facility] HCO3, Art POC 24 20 - 30 mmol/L [facility] Hct, POC 29.0(L) 41.4 - 51.6 % [facility] O2 Sat, Art POC (Calc) 99 % [facility] Total Hb, POC 9.6(L) 13.8 - 17.2 g/dL [facility] Blood 11/08/2023 6:00 AM RAG SHREDDER 11/08/2023 6:00 AM RAG SHREDDER Julia Ramos MD LAB POCT ORDERABLES - DE VICE Final Result Performing Organization Address [facility]/ZIP Co de Phone Number [facility] [place] [address] * Transfuse RBC (11/08/2023 5:59 AM RAG SHREDDER) Blood us Edmond Barker MD BLOOD TRANSFUSION ORD ERABLES Final Result [facility] [place] [address] * Transfuse RBC (11/08/2023 4:53 AM RAG SHREDDER) Blood Edmond Barker MD BLOOD TRANSFUSION ORD ERABLES Final Result [facility] [place] [address] * (ABNORMAL) POC Blood Gas and Chemistries, Arterial - (11/08/2023 4:18 AM RAG SHREDDER) pH, Art POC 7.45 7.35 - 7.45 [facility] pCO2, Art POC 35 35 - 45 mmHg [facility] pO2, Art POC 322(H) 83 - 108 mmHg [facility] Na, POC 136 135 - 145 mmol/L [facility] K POC 3.5 3.3 - 4.9 mmol/L [facility] Comment: Interpretive Data This method is not able to assess for hemolysis, which may falsely increase potassium concentrations. If further testing is needed to evaluate this result, consider in-laboratory plasma potassium. Current Interpretive Data was last revised on 2022. Cl, POC 108 97 - 110 mmol/L [facility] Ionized Ca, POC 4.62 4.50 - 5.10 mg/dL [facility] Glucose, POC 123 70 - 199 mg/dL [facility] Lactate, POC 0.7 0.7 - 2.2 mmol/L [facility] SO2 (mindy) arterial 99(H) 90 - 95 % [facility] Base excess, POC 0.4 mmol/L [facility] HCO3, Art POC 24 20 - 30 mmol/L [facility] Hct, POC 26.0(L) 41.4 - 51.6 % [facility] O2 Sat, Art POC (Calc) 100 % [facility] Total Hb, POC 8.6(L) 13.8 - 17.2 g/dL [facility] Blood 11/08/2023 4:18 AM RAG SHREDDER 11/08/2023 4:18 AM RAG SHREDDER us Julia Ramos MD LAB POCT ORDERABLES - DE VICE Final Result [facility] Department [place] [address] * Prepare plasma: 4 Units (11/08/2023 2:28 AM RAG SHREDDER) Product code [id number] Unit Number [id number] [facility] Product Blood Type OPOS [facility] Dispense Status RETURNED [facility] Product code [id number] [facility] Unit Number [id number] [facility] Product Blood Type OPOS [facility]J Dispense Status RETURNED [facility] Product code [id number] [facility] Unit Number [id number] [facility] Product Blood Type OPOS [facility] Dispense Status RETURNED [facility] Product code [id number] [facility] Unit Number [id number]- [id number] [facility] Product Blood Type OPOS [facility] Dispense Status PRESUMED TRANSFUSED [facility] Blood (Blood, Venous) 11/08/2023 2:28 AM RAG SHREDDER 11/08/2023 2:29 AM RAG SHREDDER Narrative [facility] - 11/09/2023 12:41 PM RAG SHREDDER Date required: FFP # of Units:-4-Units Reasons:-Immediate need for surgical intervention Tobias Rivas MD BLOOD BANK PRODUCT ORDERA BLES Final Result [facility] [place] [address] * Prepare RBC: 4 Units (11/08/2023 2:28 AM RAG SHREDDER) Product code [id number] Unit Number [id number] [facility] Product Blood Type OPOS [facility] Dispense Status PRESUMED TRANSFUSED [facility] Product code [id number] [facility] Unit Number [id number] [facility] Product Blood Type OPOS [facility] Dispense Status RETURNED [facility] Product code [id number] [facility] Unit [facility] [id number]- S [facility] Product Blood Type OPOS [facility] Dispense Status PRESUMED TRANSFUSED [facility] Product code [id number] [facility] Unit Number [id number]- [id number] [facility] Product Blood Type OPOS [facility] Dispense Status PRESUMED TRANSFUSED [facility] Blood 11/08/2023 2:28 AM RAG SHREDDER 11/08/2023 2:29 AM RAG SHREDDER Narrative [facility] - 11/09/2023 12:43 PM RAG SHREDDER Are special requirements needed? (All products are leukoreduced and CMV- safe)- >No Date required:-[id number] LRRBC # of [id number] Reasons:-Intra-op transfusion} Tobias Rivas MD BLOOD BANK PRODUCT ORDERA BLES Final Result [facility] [place] [address] * Critical Care (11/08/2023 2:18 AM RAG SHREDDER) Narrative Eula Wagoner MD - 11/08/2023 2:18 AM RAG SHREDDER Eula Wagoner MD ? 11/08/2023 ??2:19 AM [...] Lumbar Spine WO Contrast (11/08/2023 2:09 AM RAG SHREDDER) Anatomical Region Laterality Modality Spine N/A Computed Tomogra phy 11/08/2023 2:35 AM RAG SHREDDER Impressions 11/08/2023 1:21 PM RAG SHREDDER 1. ??Degenerative changes of the cervical and [...] Zac Mcgarry M.D. Narrative 11/08/2023 1:21 PM RAG SHREDDER EXAMINATION: 1. CT of the cervical spine [...] it. Electronically signed by: Zac Mcgarry M.D. Lex Carrillo III, MD IMG CT PROCEDUR ES Final Result * XR Spine Lumbar 2 or 3 Views (11/08/2023 1:14 AM RAG SHREDDER) Anatomical Region Laterality Modality Spine N/A Computed Radiogr aphy 11/08/2023 1:56 AM RAG SHREDDER Impressions 11/08/2023 10:20 AM RAG SHREDDER FINDINGS/IMPRESSION: Thoracic spine: 3 views of the [...] Kendrick House M.D. Narrative 11/08/2023 10:20 AM RAG SHREDDER EXAMINATION: ??XR SPINE THORACIC 3 VIEWS, XR [...] Spine Thoracic 3 Vw (11/08/2023 1:13 AM RAG SHREDDER) Anatomical Region Laterality Modality Spine N/A Computed Radiogr aphy 11/08/2023 1:56 AM RAG SHREDDER Impressions 11/08/2023 10:20 AM RAG SHREDDER FINDINGS/IMPRESSION: Thoracic spine: 3 views of the [...] Kendrick House M.D. Narrative 11/08/2023 10:20 AM RAG SHREDDER EXAMINATION: ??XR SPINE THORACIC 3 VIEWS, XR [...] it. Electronically signed by: Kendrick House M.D. us Eula Wagoner MD IMG XR PROCEDURES Final R esult * MRI Spine Total Complete WO Contrast (11/08/2023 12:44 AM RAG SHREDDER) Anatomical Region Laterality Modality Spine N/A Magnetic Resonan ce 11/08/2023 11:5 3 AM RAG SHREDDER Impressions 11/08/2023 4:26 PM RAG SHREDDER 1. ??Postsurgical changes of L4-L5 discectomy, interbody [...] Zac Mcgarry M.D. Narrative 11/08/2023 4:26 PM RAG SHREDDER EXAMINATION: 1. Magnetic resonance imaging (MRI) of [...] by: Zac Mcgarry M.D. Deisy Ayala MD IMG MRI PROCEDURES Final Result * eGFR (11/07/2023 11:01 PM RAG SHREDDER) eGFR 82 >=60 mL/min/1. 73 m2 [facility] Comment: Interpretive Data Reference Interval Normal [...] reviewed 2021. Blood 11/07/2023 11:0 1 PM RAG SHREDDER 11/07/2023 11:12 PM RAG SHREDDER Deisy Ayala MD LAB BLOOD ORDERABLES Fide rick Result [facility] [place] [address] * Type and screen (11/07/2023 11:01 PM RAG SHREDDER) Jigna, indirect Negative ABO Rh O Positive [facility] Blood 11/07/2023 11:0 1 PM RAG SHREDDER 11/07/2023 11:46 PM RAG SHREDDER Narrative [facility] - 11/08/2023 12:42 AM RAG SHREDDER Has the patient had Daratumumab or Isatuximab in the past 6 months?->Unknown Result [facility] Deisy Ayala MD LAB BLOOD BANK TEST ORDER CLEMENTINE Final Result Performing Organization Address [facility] [place] [address] * aPTT (11/07/2023 11:01 PM RAG SHREDDER) aPTT 32 28 - 38 sec [facility] Comment: Interpretive Data Heparin therapeutic range: 66.0 - 100.0 seconds. Range based on correlation with therapeutic heparin activity range of 0.3 - 0.7 Units/mL. Current interpretive data was last revised on 2023. Blood 11/07/2023 11:0 1 PM RAG SHREDDER 11/08/2023 12:07 AM RAG SHREDDER Deisy Ayala MD LAB BLOOD ORDERABLES Fide l Result Performing Organization Address [facility] de Phone Number [facility] [place] [address] * Protime-INR (11/07/2023 11:01 PM RAG SHREDDER) PT 12.6 10.3 - 13.7 sec [facility] INR 1.11 0.90 - 1.20 [facility] Comment: Interpretive data Oral anticoagulant therapeutic ranges: Venous thromboembolism prophylaxis or treatment: 2.0-3.0 CARDIOLOGY Standard range: 2.0-3.0 High-intensity range: 2.5-3.5 Refer to indication-specific guidelines for appropriate target ranges for prosthetic heart valve replacement. Current interpretive data was last revised on 2019. Blood 11/07/2023 11:0 1 PM RAG SHREDDER 11/08/2023 12:07 AM RAG SHREDDER Result [facility] Deisy Ayala MD LAB BLOOD ORDERABLES Fide l Result Performing Organization Address [facility] de Phone Number [facility] Department [place] [address] * Basic metabolic panel (11/07/2023 11:01 PM RAG SHREDDER) Pathologist [facility] Sodium 141 135 - 145 mmol/L [facility] Potassium, pl 4.2 3.3 - 4.9 mmol/L [facility] Chloride 104 97 - 110 mmol/L [facility] CO2 28 22 - 32 mmol/L [facility] Anion gap 9 2 - 15 mmol/L [facility] BUN 14 6 - 25 mg/dL [facility] Creatinine 0.98 0.80 - 1.30 mg/dL [facility] Glucose 142 70 - 199 mg/dL [facility] Comment: Interpretive Data Fasting glucose [...] 2022. Calcium 8.6 8.5 - 10.3 mg/dL [facility] Blood 11/07/2023 11:0 1 PM RAG SHREDDER 11/07/2023 11:12 PM RAG SHREDDER Deisy Ayala MD LAB BLOOD ORDERABLES Fide rick Result [facility] [place] [address] * (ABNORMAL) CBC without differential (11/07/2023 11:01 PM RAG SHREDDER) [facility] WBC 12.0(H) 3.8 - 9.9 K/cumm [facility] Hgb 9.5(L) 13.0 - 17.5 g/dL [facility] Hct 29.0(L) 38.9 - 50.3 % [facility] Plt 343 150 - 400 K/cumm [facility] MPV 10.9 9.1 - 12.3 fL [facility] RBC 3.08(L) 4.30 - 5.80 M/cumm [facility] MCV 94.2 81.3 - 96.4 fL [facility] MCH 30.8 27.1 - 33.3 pg [facility] MCHC 32.8 32.3 - 35.7 g/dL [facility] RDW CV 13.7 11.1 - 14.9 % [facility] RDW SD 46.8 35.7 - 48.1 fL [facility] NRBC abs 0.00 0.00 - 0.01 K/cumm [facility] Blood 11/07/2023 11:0 1 PM RAG SHREDDER 11/07/2023 11:12 PM RAG SHREDDER Deisy Ayala MD LAB BLOOD ORDERABLES Fide rick Result Performing Organization Address [facility]/State/[facility] Co de Phone Number [facility] [place] [address] * GA CRITICAL CARE ILL/INJURED PATIENT INIT 30-74 MIN (11/07/2023 10:43 PM RAG SHREDDER) Narrative Temo Hampton MD - 11/07/2023 10:43 PM RAG SHREDDER Temo Hampton MD ? 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) [...] 11/08/23 at 1215 Given 11/16/2023 11:40 AM RAG SHREDDER 1,000 mg Given 11/16/2023 5:14 AM RAG SHREDDER 1,000 mg Given 11/15/2023 11:11 PM RAG SHREDDER 1,000 mg acyclovir (ZOVIRAX) tablet 400 mg 400 mg, oral, 2 times daily, First dose on Sun11/09/23 at 1030, Indications: Prophylaxis, MedicalIndications:Prophylaxis, Medical Given 11/16/2023 8:30 AM RAG SHREDDER 400 mg Given 11/15/2023 9:11 PM RAG SHREDDER 400 mg Given 11/15/2023 8:36 AM RAG SHREDDER 400 mg bisacodyL (DULCOLAX) suppository 10 mg 10 mg, rectal, Daily, First dose on Sun11/10/23 at 1115, Indications: constipationIndications:constipation Given 11/14/2023 8:17 AM RAG SHREDDER 10 mg Given 11/10/2023 4:36 PM RAG SHREDDER 10 mg cetirizine (ZyrTEC) tablet 10 mg 10 mg, oral, Daily, First dose on Sun11/08/23 at 1500 Given 11/16/2023 8:29 AM RAG SHREDDER 10 mg Given 11/15/2023 8:36 AM RAG SHREDDER 10 mg Given 11/14/2023 8:18 AM RAG SHREDDER 10 mg cholecalciferol (VITAMIN D-3) capsule 5,000 Units 5,000 Units, oral, Daily, First dose on Sun11/08/23 at 1500, Each capsule contains 5,000 units (125 mcg) of cholecalciferol, Given 11/16/2023 11:40 AM RAG SHREDDER 5,000 Units Given 11/15/2023 8:36 AM RAG SHREDDER 5,000 Units Given 11/14/2023 8:18 AM RAG SHREDDER 5,000 Units cyclobenzaprine (FLEXERIL) tablet 5 mg 5 mg, oral, 3 times daily, First dose (after last modification) on Sun11/12/23 at 1600 Given 11/16/2023 8:30 AM RAG SHREDDER 5 m g Given 11/15/2023 9:11 PM RAG SHREDDER 5 mg Given 11/15/2023 3:04 PM RAG SHREDDER 5 mg dextrose (D10W) 10% bolus 250 mL [...] episode of hypoglycemia., Indications: hypoglycemic disorderIndications:hypoglycemic disorder dextrose gel in packet 15 g 15 [...] tablet/capsule., Indications: hypertensionIndications:hypertension Given 11/16/2023 8:29 AM RAG SHREDDER 240 mg Given 11/15/2023 9:11 PM RAG SHREDDER 240 mg Given 11/15/2023 8:36 AM RAG SHREDDER 240 mg gabapentin (NEURONTIN) tablet 600 mg 600 mg, oral, 3 times daily, First dose (after last modification) on Sun11/12/23 at 1600 Given 11/16/2023 8:30 AM RAG SHREDDER 600 mg Given 11/15/2023 9:11 PM RAG SHREDDER 600 mg Given 11/15/2023 3:04 PM RAG SHREDDER 600 mg glucagon injection 1 mg 1 [...] 11/08/23 at 1248 Given 11/08/2023 12:54 PM RAG SHREDDER 10 mg insulin lispro (HumaLOG, ADMELOG) 100 unit/mL [...] Diabetes MellitusIndications:Diabetes Mellitus Given 11/16/2023 11:40 AM RAG SHREDDER 2 Units Left Lower Abdomen Given 11/15/2023 5:22 PM RAG SHREDDER 2 Units Le ft Lower Abdomen Given 11/15/2023 12:35 PM RAG SHREDDER 2 Units L eft Lower Abdomen insulin [...] Diabetes MellitusIndications:Diabetes Mellitus Given 11/15/2023 9:25 PM RAG SHREDDER 1 Units Right Lower Abdomen Given 11/14/2023 8:46 PM RAG SHREDDER 1 Units Ri ght Lower Abdomen Given 11/13/2023 10:00 PM RAG SHREDDER 1 Units L eft Lower Abdomen irbesartan (AVAPRO) tablet 150 mg 150 mg, oral, Every morning, First dose on 11/12/23 at 1630, Hold for SBP < 110, Indications: hypertensionIndications:hypertension Given 11/16/2023 8:29 AM RAG SHREDDER 150 mg Given 11/15/2023 8:36 AM RAG SHREDDER 150 mg Given 11/14/2023 8:18 AM RAG SHREDDER 150 mg levETIRAcetam (KEPPRA) tablet 1,000 mg 1,000 mg, oral, 2 times daily, First dose on Helene 11/08/23 at 1245 Given 11/16/2023 8:30 AM RAG SHREDDER 1,000 mg Given 11/15/2023 9:11 PM RAG SHREDDER 1,000 mg Given 11/15/2023 8:36 AM RAG SHREDDER 1,000 mg ondansetron (ZOFRAN) injection 4 mg 4 mg, intravenous, Administer over 2 Minutes, Every 6 hours PRN, nausea, Starting on Helene 11/08/23 at 1352, 1st line Given 11/09/2023 1:22 PM RAG SHREDDER 4 mg Given 11/09/2023 9:58 AM RAG SHREDDER 4 mg Given 11/08/2023 8:51 PM RAG SHREDDER [address] (PROTONIX) extended release tablet 40 mg 40 mg, oral, Daily, First dose on Sun11/08/23 at 1245, Do not crush, chew, cut, dissolve, open or otherwise manipulate tablet/capsule., Indications: Treatment of Non-Bleeding Gastric DisorderIndications:Treatment of Non-Bleeding Gastric Disorder Given 11/16/2023 8:30 AM RAG SHREDDER 40 mg Given 11/15/2023 8:36 AM RAG SHREDDER 40 mg Given 11/14/2023 8:17 AM RAG SHREDDER 40 mg prochlorperazine (COMPAZINE) injection 5 mg 5 mg, intravenous, Administer over 2 Minutes, Every 6 hours PRN, nausea, vomiting, 2nd line, Starting on Sun11/08/23 at 1709 Given 11/09/2023 10:02 AM RAG SHREDDER 5 mg Given 11/08/2023 5:15 PM RAG SHREDDER 5 mg ramelteon (ROZEREM) tablet 8 mg 8 mg, oral, Nightly, First dose on Sun11/08/23 at 2115, Indications: Sleep-Onset InsomniaIndications:Sleep-Onset Insomnia Given 11/15/2023 11:11 PM RAG SHREDDER 8 mg Given 11/14/2023 11:53 PM RAG SHREDDER 8 mg Given 11/13/2023 10:00 PM RAG SHREDDER 8 mg senna-docusate (PERICOLACE) 8.6-50 mg per tablet 2 tablet 2 tablet, oral, 2 times daily, First dose on Sun11/10/23 at 1115 Given 11/16/2023 8:29 AM RAG SHREDDER 2 tablets Given 11/15/2023 9:10 PM RAG SHREDDER 2 tablets Given 11/15/2023 8:36 AM RAG SHREDDER 2 tablets sodium chloride 0.9% flush 0.5-20 mL 0.5-20 mL, intra-catheter, Every 8 hours scheduled, First dose on Sun11/09/23 at 1700, Pre-Procedure (IR), Flush volume based on line type and size. Given 11/16/2023 5:14 AM RAG SHREDDER 10 mL Given 11/15/2023 9:11 PM RAG SHREDDER 10 mL Given 11/15/2023 6:09 AM RAG SHREDDER 10 mL sodium chloride 0.9% flush 0.5-20 mL 0.5-20 mL, intra-catheter, As needed, line care, Starting on Sun11/09/23 at 1620, Pre-Procedure (IR), Flush volume based on line type and size. Flush before and after each use. sodium chloride 0.9% irrigation As needed, Starting on Sun11/08/23 at 0401, Intra-Op Given 11/08/2023 9:53 AM RAG SHREDDER 1,000 mL Surgical Site Given 11/08/2023 8:29 AM RAG SHREDDER 2,000 mL Scott rgical Site Given 11/08/2023 4:01 AM RAG SHREDDER 1,000 mL Scott rgical Site tamsulosin (FLOMAX) extended release capsule 0.8 mg 0.8 mg, oral, Daily with dinner, First dose (after last modification) on Sun11/08/23 at 1800, Do not crush, chew, cut, dissolve, open or otherwise manipulate tablet/capsule. Given 11/15/2023 5:23 PM RAG SHREDDER 0.8 mg Given 11/14/2023 5:53 PM RAG SHREDDER 0.8 mg Given 11/13/2023 5:00 PM RAG SHREDDER 0.8 mg thrombin-recombinant 5,000 unit topical solution As needed, Starting on Sun11/08/23 at 0357, Intra-Op Given 11/08/2023 3:57 AM RAG SHREDDER 5,000 Units Devon k traMADoL (ULTRAM) tablet 50 mg 50 mg, oral, Every 4 hours PRN, 1st line for pain, Starting on Sun11/12/23 at 1545 Given 11/14/2023 1:00 PM RAG SHREDDER 50 mg documented in this encounter Discontinued [...] capsuleIndications:Scott pplement Take 1 tablet by mouth production team advisor before breakfast Stop Taking at Discharge 11/16/2023 [...] Recently Administered Medications Times are shown in RAG SHREDDER. Scheduled Medication Order 11/14/2023 11/15/2023 11/16/2023 acetaminophen (TYLENOL) tablet 1,000 mg 1,000 mg, oral, Every 6 hours, First dose (after last modification) on Helene 11/08/23 at 7740 9889 (Given - Provider: Son Brown RN)2546 (Given - Provider: Radha Hancock RN)1753 (Given - Provider: Radha Hancock RN)2353 (Given - Provider: Joann Hurtado, NARENDRA) 0609 (Given - Provider: Joann Hurtado RN)1234 (Given - Provider: Radha Hancock RN)1723 (Given - Provider: Radha Hancock RN)2311 (Given - Provider: Joann Hurtado RN) 0514 (Given - Provider: Joann Hurtado RN)1140 (Given - Provider: Deisy Chiang, NARENDRA) acyclovir (ZOVIRAX) tablet 400 mg 400 mg, oral, 2 times daily, First dose on Sun11/09/23 at 1030, Indications: Prophylaxis, Medical 0817 (Given - Provider: Radha Hancock RN)2033 (Given - Provider: Joann Hurtado RN) 0836 (Given - Provider: Radha Hancock RN)2111 (Given - Provider: Joann Hurtado RN) 0830 [...] 0829 (Given - Provider: Deisy Chiang RN) cholecalciferol (VITAMIN D-3) capsule 5,000 Units 5,000 Units, oral, Daily, First dose on Helene 11/08/23 at 1500, Each capsule contains 5,000 units (125 mcg) of cholecalciferol, 0818 (Given - Provider: Radha Hancock, NARENDRA) 0836 (Given - Provider: Radha Hancock RN) 1140 (Given - Provider: Deisy Chiang, NARENDRA) cyclobenzaprine (FLEXERIL) tablet 5 mg 5 mg, oral, 3 times daily, First dose (after last modification) on Sun11/12/23 at 1600 0818 (Given - Provider: Radha Hancock, NARENDRA)1518 (Given - Provider: Radha Hancock RN)2033 (Given - Provider: Joann Hurtado, NARENDRA) 0836 (Given - Provider: Radha Hancock, NARENDRA)1504 (Given - Provider: Radha Hancock RN)2111 (Given - Provider: Joann Hurtado, NARENDRA) 0830 (Given - Provider: Deisy Chiang, NARENDRA) dexAMETHasone (DECADRON) 4 mg/mL injection 4 mg [...] Radha Hancock RN)2354 (Given - Provider: Joann Hurtado, NARENDRA) 0609 (Given - Provider: Joann Hurtado, NARENDRA) dexAMETHasone (DECADRON) tablet 2 mg (COMPLETED)(Linked Group 1) 2 mg, oral, Every 12 hours scheduled, First dose on Sun11/15/23 at 1200, For 1 day 1234 (Given - Provider: Radha Hancock RN)2111 (Given - Provider: Joann Hurtado RN) dexAMETHasone (DECADRON) tablet 2 mg (COMPLETED)(Linked Group 1) 2 mg, oral, Once, On Sun11/16/23 at 0900, For 1 dose 0830 (Given - Provider: Deisy Chiang, NARENDRA) dilTIAZem XR (CARDIZEM CD,DILACOR XR) 24 hour capsule 240 mg 240 mg, oral, 2 times daily, First dose on Sun11/13/23 at 1045, Do not crush, chew, cut, dissolve, open or otherwise manipulate tablet/capsule., Indications: hypertension 0817 (Given - Provider: Radha Hancock, NARENDRA)2032 (Given - Provider: Joann Hurtado RN) 0836 (Given - Provider: Radha Hancock, NARENDRA)2110 (Given - Provider: Joann Hurtado, NARENDRA) 0829 (Given - Provider: Deisy Chiang, NARENDRA) gabapentin (NEURONTIN) tablet 600 mg 600 mg, oral, 3 times daily, First dose (after last modification) on Sun11/12/23 at 1600 0818 (Given - Provider: Radha Hancock, NARENDRA)1518 (Given - Provider: Radha Hancock, NARENDRA)2032 (Given - Provider: Joann Hurtado, NARENDRA) 0836 (Given - Provider: Radha Hancock, NARENDRA)1504 (Given - Provider: Radha Hancock, NARENDRA)2110 (Given - Provider: Joann Hurtado, NARENDRA) 0830 (Given - Provider: Deisy Chiang, NARENDRA) insulin lispro (HumaLOG, ADMELOG) 100 unit/mL injection [...] Hancock RN) 0835 (Given - Provider: Radha Hancock, NARENDRA)1235 (Given - Provider: Radha Hancock, NARENDRA)1722 (Given - Provider: Radha Hancock RN) 0757 (Not Given - Provider: Deisy Chiang RN - Reason: Order parameters not met - Comment: bg 145)1140 (Given - Provider: Deisy Chiang, NARENDRA) insulin lispro (HumaLOG, ADMELOG) 100 unit/mL injection [...] mg, oral, Every morning, First dose on 11/12/23 at 1630, Hold for SBP < 110, Indications: hypertension 0818 (Given - Provider: Radha Hancock RN) 0836 (Given - Provider: Radha Hancock RN) 0829 (Given - Provider: Deisy Chiang, NARENDRA) levETIRAcetam (KEPPRA) tablet 1,000 mg 1,000 mg, oral, 2 times daily, First dose on Helene 11/08/23 at 1245 0818 (Given - Provider: Radha Hancock RN)2032 (Given - Provider: Joann Hurtado RN) 0836 (Given - Provider: Radha Hancock, NARENDRA)211 (Given - Provider: Joann Hurtado RN) 0830 (Given - Provider: Deisy Chiang, NARENDRA) pantoprazole DR (PROTONIX) extended release tablet 40 [...] at 1115 0818 (Given - Provider: Radha Hancock RN)2032 (Not Given - Provider: Joann Hurtado RN [...] Radha Hancock RN)2048 (Given - Provider: Joann Hurtado RN) 0609 (Given - Provider: Joann Hurtado RN)1457 (Canceled Entry - Provider: Radha Hancock RN)2110 (Given - Provider: Joann Hurtado RN) 0514 (Given - Provider: Jaonn Hurtado, NARENDRA) tamsulosin (FLOMAX) extended release capsule 0.8 mg 0.8 mg, oral, Daily with dinner, First dose (after last modification) on Sun11/08/23 at 1800, Do not crush, chew, cut, dissolve, open or otherwise manipulate tablet/capsule. 1753 (Given - Provider: Radha Hancock, NARENDRA) 1723 (Given - Provider: Radha Hancock, NARENDRA) PRN Medication Order 11/14/2023 11/15/2023 11/16/2023 dextrose [...] Count Last Ordered Date First Ordered Date dexAMETHasone (DECADRON) tablet 2 mg 3 11/05 dilTIAZem XR (CARDIZEM CD,DI LACOR XR) 24 hour capsule 240 mg 1 11/13/2023 cyclobenzaprine (FLEXERIL) tablet 5 mg 2 11/08/2023 gabapentin (NEURONTIN) tablet 600 mg 1 06/2024 irbesartan (AVAPRO) tablet 150 mg 1 024 lidocaine PF (XYLOCAINE) 10 mg/mL (1 %) preservative free injection 100 mg 1 11/12/2023 traMADoL (ULTRAM) tablet 50 mg 2 11/12/2023 vancomycin 1,000 mg/200 mL i n dextrose 5% (premix) 1,000 mg 1 11/12/2023 sodium chloride 0.9% IVPB 0-250 mL 1 2023 bisacodyL (DULCOLAX) suppository 10 mg 1 lactulose 0.67 gram/mL oral solution 20 g 2 11/10/2023 senna-docusate (PERICOLACE) 8.6-50 mg per tablet 2 tablet 1 11/10/2023 acyclovir (ZOVIRAX) tablet 400 mg 1 024 Carrier Fluids for Secondary Infusion - 0.9% Sodium Chloride 1 11/09/2023 dextrose (D10W) 10% bolus 250 mL 2 11/09/19 24 11/08/2023 dextrose gel in packet 15 g 2 11/09/2023 11/08/2023 fentaNYL (SUBLIMAZE) preserv ative free injection 1 11/09/2023 glucagon injection 1 mg 2 11/09/202302/2024 insulin lispro (HumaLOG, ADM ELOG) 100 unit/mL injection 0-10 Units 1 11/09/2023 insulin lispro (HumaLOG, ADM ELOG) 100 unit/mL injection 0-5 Units 1 11/09/2023 ioversoL (OPTIRAY 350) injection 11/09/19 ioversoL (OPTIRAY 350) syringe 100 mL 03/2024 lidocaine PF (XYLOCAINE) 10 mg/mL (1 %) preservative free injection 1 11/09/2023 midazolam (VERSED) 1 mg/mL injection 1 03/2024 sodium chloride 0.9% flush 0.5-20 mL 2 03/2024 sodium chloride 0.9% infusion 1 11/09/2023 acetaminophen (TYLENOL) tablet 1,000 mg 2 0 11/08/2023 11/07/2023 ceFAZolin (ANCEF) 1 gram/10 mL in sterile water (premix) 1,000 mg 1 11/08/2023 ceFAZolin (ANCEF) 2,000 mg/2 0 mL in sterile water (premix) 2,000 mg 1 11/08/2023 cetirizine (ZyrTEC) tablet 10 mg 11/08/19 cholecalciferol (VITAMIN D-3 ) capsule 5,000 Units 11/08/2023 dexAMETHasone (DECADRON) 4 m g/mL injection 4 mg 1 11/08/2023 dextrose 5% and Lactated Ringer's infusion 11/08/2023 docusate (COLACE) 10 mg/mL o ral liquid 100 mg 11/08/2023 docusate sodium (COLACE) capsule 100 mg 1 0 11/08/2023 gabapentin (NEURONTIN) capsule 300 mg 1 02/2024 hydrALAZINE (APRESOLINE) injection 10 mg 1 11/08/2023 HYDROmorphone (DILAUDID) injection 0.25 mg 1 11/08/2023 HYDROmorphone (DILAUDID) injection 0.5 mg 1 11/08/2023 insulin lispro (HumaLOG, ADM ELOG) 100 unit/mL injection 2-7 Units 1 11/08/2023 ketorolac (TORADOL) 15 mg/mL injection 15 mg 1 11/08/2023 Lactated Ringer's (LR) bolus 500 mL 1 11/08 levETIRAcetam (KEPPRA) tablet 1,000 mg 1 lidocaine (LIDODERM) 5 % patch 2 patch 1 lidocaine in dextrose 5% 2 g /250 mL (8 mg/mL) infusion (premix) 1 11/08/2023 magnesium sulfate 2 g/50 mL in water (premix) 2 g 1 11/08/2023 ondansetron (ZOFRAN) injection 4 mg 2 11/08 oxyCODONE (ROXICODONE) tablet 10 mg 1 11/08 oxyCODONE (ROXICODONE) tablet 5 mg 2 2023 oxyCODONE (ROXICODONE) tablet 7.5 mg 02/[address] (PROTONIX) e xtended release tablet 40 mg 1 11/08/2023 prochlorperazine (COMPAZINE) injection 5 mg 1 11/08/2023 protamine injection 40 mg 11/08/2023 ramelteon (ROZEREM) tablet 8 mg 1 senna (SENOKOT) tablet 1 tablet 1 senna 1.76 mg/mL syrup 8.8 mg 11/08/2023 sodium chloride 0.9% solution 1 11/08/2023 tamsulosin (FLOMAX) extended release capsule 0.4 mg 1 11/08/2023 tamsulosin (FLOMAX) extended release capsule 0.8 mg 11/08/2023 traZODone (DESYREL) tablet 50 mg 1 11/08/19 24 vancomycin 1,250 mg/262.5 mL in sodium chloride 0.9% (premix) 1,250 mg 1 11/08/2023 Lab Orders Without Results Count Last Ordered [...] 1 11/09/2023 VITAL SIGNS 1 11/09/2023 VOID GROUP EXERCISE INSTRUCTOR TO OR 1 11/09/2023 WOUND CARE 1 [...] 11/08/2023 documented in this encounter Care Teams Seasonal Greenery Bundler Relationship Specialty Start Date End Date Rl Medina DO [address] [place] [address] PCP - General 08/09/17 05/25/24 Marlen Gray, RN [address] [address] [facility] Outpatient Biofuels Plant Construction Worker 10/31/23 11/15/23 documented as of this encounter
--- OUTSIDE RECORDS SUMMARY | 2024-11-05 19:23 | XMS_ITS | Encounter Summary ---
Author Organization [facility] Address [address] [place] [address] Phone Care Team Providers Care Cam Maker Name Role Phone Rl Medina DO Primary Care Provider Em Witt RN Unavailable [phone] Reason for Referral * MRI/CAT/PET Scan (Routine) - Closed Specialty Diagnoses / Procedures Referred By Manisha t Referred To Contact Radiology Diagnoses SDH (subdural hematoma) (HCC) Procedures CT Head WO Contrast Carrie Jerez NP [address] [place] [address] Phone: tel: fax: [address] [address] Referral ID Status Reason Start Date Expiration Date Visits Re quested Visits Authorized [id number] Closed 10/30/2023 11/28/2024 1 1 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 Encounter Details Date Type Department Care Team (Late st Contact Info) Description 10/30/2023 Orders Only [facility] Neurosurgery [facility] Medical Office Building 4 [address] [place] [id number] Carrie Jerez NP [address] [place] [address] SDH (subdural hematoma) (HCC) (Primary Dx) Social History Tobacco Use Types Packs/Day Years Used Date Smoking Tobacco: Former Cigarettes 1 11 0 11/05/1968 - 11/05/1979 Passive Smoke Exposure: Past Smokeless Tobacco: Never Alcohol Use Standard Drinks/Week Comments Yes 14 (1 standard drink = 0.6 oz pu re alcohol) social AHC Utilities Answer Date Recorded In the past 12 months has th e [employer], gas, oil, or water [employer] threatened to shut off services in your [...] 10/31/2023 How often do you attend chur or christianity services? Never 10/31/2023 Do you belong to any clubs o r organizations such as jew groups, unions, fraternal or athletic groups, or [...] slept in a alf (including now)? 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 Interval resolution of bilateral subdural collections along the cerebral convexities. 2. ??No new acute intracranial hemorrhage, significant mass effect, or hydrocephalus. Electronically signed by: Francia Schmitz M.D. Narrative 12/24/2023 1:58 PM DRIL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 EXAMINATION: CT head without contrast HISTORY: Follow-up [...] High riding right jugular bulb. Procedure Note Dario Schmitz, Francia Cortez MD - 12/24/2023 EXAMINATION: CT head without [...] signed by: Francia Schmitz M.D. Carrie Jerez THERMOGRAPH OPERATOR IMG CT PROCEDURES Final Re sult documented in this encounter Visit Diagnoses Diagnosis SDH (subdural hematoma) (HCC)- Primary Subdural hemorrhage SDH (subdural hematoma) (HCC) Subdural hemorrhage documented in this encounter Care Teams Cam Maker Relationship Specialty Start Date End Date Rl Medina DO [address] [place] [address] PCP - General 08/09/17 05/25/24 Em Witt, RN [address] [facility] [address] [place] [address] [facility] Outpatient Hat Model 10/30/23 10/30/23 documented as of this encounter
--- OUTSIDE RECORDS SUMMARY | 2024-11-05 19:23 | XMS_ITS | Encounter Summary ---
Author Organization [facility] Address [address] [place] [address] Phone Care Team Providers Care Pulmonary Care Nurse Name Role Phone Rl Medina DO Primary Care Provider Marlen Gray RN Unavailable [phone] Encounter Details Date Type Department Care Team (Late st Contact Info) Description 11/07/2023 Telephone [facility] Orthopaedic Surgery [address] [facility] 1st Floor [address] [place] [address] Marcial Vu Jr., MD [address] [facility] [address] [place] [address] Social History Tobacco Use Types Packs/Day Years Used Date Smoking Tobacco: Former Cigarettes 1 11 0 11/05/1968 - 11/05/1979 Passive Smoke Exposure: Past Smokeless Tobacco: Never Alcohol Use Standard Drinks/Week Comments Yes 14 (1 standard drink = 0.6 oz pu re alcohol) social AHC Utilities Answer Date Recorded In the past 12 months has [employer], gas, oil, or water company threatened to [...] attend chur ch or taoist services? 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 Evans's , Val, over the phone. They called into our office today to let usknow that he had severe low back pain overnight. He took an oxycodone for this and also started Toradol which I prescribed yesterday. The pain has since subsided and is now tolerable. He does not have any new numbness, paresthesias, or weakness. He does not have any radiating lower extremity pain. He did have occasional small episodes of urinary incontinence at baseline related toprior prostate cancer prior to his complicated UTI and when he was admitted to the hospital for hiscomplicated UTI, a Harris was placed. The Harris was removed when he was discharged from the hospitalon October 30, 2023 and he has been having urinary incontinence episodes since then which are moresubstantial than what he had prior to the UTI. Currently, he has urinary incontinence which is unchanged compared to when he was discharged from the hospital. He has had an episode of diarrhea but has not had bowel incontinence. He does not have any saddle anesthesia. He continues to take the Lovenox for his bilateral pulmonary emboli. I am going to see him back in clinic tomorrow with x-rays AP and lateral of the lumbar spine. I told them that they should present to the emergency department immediately if he has new numbness, paresthesias, weakness, or bowel/bladder issues. All questions were answered. They are understanding and in agreement. Marcial Vu Jr., MD Dinkey Skinner Department of Orthopaedic Surgery Division of Spine Surgery [facility] [place], [place] DCAST METEOROLOGIST documented in this encounter Plan of Treatment Not on file documented as of this encounter Visit Diagnoses Not on filedocumented in this encounter Care Teams Pulmonary Care Nurse Relationship Specialty Start Date End Date Rl Medina DO [address] [place] [address] PCP - General 08/09/17 05/25/24 Marlen Gray RN [address] [address] [facility] Outpatient Spindle Maker 10/31/23 11/15/23 documented as of this encounter
--- OUTSIDE RECORDS SUMMARY | 2024-11-05 19:23 | XMS_ITS | Encounter Summary ---
Author Organization [facility] Address [address] [place] [address] Phone Care Team Providers Care Activity Manager Name Role Phone Rl Medina DO Primary Care Provider [phone] Marlen Gray RN Unavailable [phone] Encounter Details Date Type Department Care Team (Late st Contact Info) Description 11/06/2023 Telephone [facility] Orthopaedic Surgery [address] [facility] 1st Floor [address] [place] [address] Marcial Vu Jr., MD [address] [facility] [address] [place] [address] Social History Tobacco Use Types Packs/Day Years Used Date Smoking Tobacco: Former Cigarettes 1 11 0 11/05/1968 - 11/05/1979 Passive Smoke Exposure: Past Smokeless Tobacco: Never Alcohol Use Standard Drinks/Week Comments Yes 14 (1 standard drink = 0.6 oz pu re alcohol) social AHC Utilities Answer Date Recorded In the past 12 months has [employer], gas, oil, or water company threatened to [...] attend chur ch or alevism services? 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 M METER READER * Telephone Encounter - Galina Franco RN - 11/07/2023 12:[address] Vu requesting to see pt in clinic tomorrow. Left for Val requesting a call back to schedule appt. M METER READER * Telephone Encounter - Galina Franco RN - 11/07/2023 12:08 PM STEAM METER READER Spoke with Val again. Val stated that pt's surgical dressing is intact without signs of drainage, redness, swelling or warmth. Per Val, pt's pain is a lot better controlled since waking up. He took first dose of toradol, will take q6h x5 days. Pt will also take gabapentin q12h, switch to PM only in 3-4 days and eventually wean off completely. Pt has flexaril or oxycodone prn for severe painor muscle spasms. Encouraged pt to alternate gabapentin with one of these medications (not take at same time) if needed. Will update Dr. Vu and contact Val again if he has additional recommendations. Pt is scheduled for clinic appt on Sunday. Pt or to call back with additional questionsor concerns in the meantime. Val in agreement with plan. M METER READER * Telephone Encounter - Galina Franco RN - 11/07/2023 9:47 AM CST Pt's , Val, called stating that pt had worst night so far last evening. Pt woke up every 2-3 hours c/o severe low back pain and his back being on fire. Per , pt was screaming in pain and kept trying different positions to become more comfortable. Pt took gabapentin once at 4am and took oxycodone 5mg 4 times since 9pm yesterday evening. Val has not yet viewed pt's incision overnight. Pt had one episode of diarrhea overnight but Val does not believe pt has a fever or chills. Pt has been sleeping over the past few hours. Requested Val look at pt's incision in the next few hours and provide me with an update. Val is also planning to bean picker toradol today. Advised pt to take toradol with/ after food and ensure taking omeprazole as well. Provided Val with my direct number today. Will discuss further recs with Dr. Vu once I receive update on pt's incision. Val inagreement with plan. M METER READER * Telephone Encounter - Galina Franco RN - 11/06/2023 4:36 PM CST Contacted pt's , Val, to ensure pt takes prilosec while taking toradol. Pt's son, Marcial, answered the phone and took down instructions. Marcial will update Val when she returns. Pt or family to call back with additional questions or concerns. M METER READER * Telephone Encounter - Marcial Vu MD - 11/06/2023 2:46 PM CST I spoke with Mr. Evans's , Val, over the phone. He had an episode this morning of increasedlow back pain this morning. No red flag symptoms. They think it may have been related to him over exerting himself yesterday. Prescribed Toradol and recommended that he remain active but not over doing it. She had to leave toanswer another phone call but I told her that he should have GI ulcer prophylaxis while he is taking the Toradol. He takes omeprazole as a home medication. We will follow up with them to ensure that he continues to take this while on the Toradol. We will plan to see him back in clinic at his next routine follow-up or earlier if any issues arise. All questions were answered. Marcial Vu Jr., MD Market Manager Department of Orthopaedic Surgery Division of Spine Surgery [facility] [place], [place] M METER READER documented in this encounter Plan of Treatment Not on file documented as of this encounter Visit Diagnoses Not on filedocumented in this encounter Care Teams Activity Manager Relationship Specialty Start Date End Date Rl Medina DO [address] [place] [address] PCP - General 08/09/17 05/25/24 Marlen Gray RN [address] [facility] [address] [place] [address] SHOP Outpatient Planning Director 10/31/23 11/15/23 documented as of this encounter
--- OUTSIDE RECORDS SUMMARY | 2024-11-05 19:23 | XMS_ITS | Encounter Summary ---
Author Organization [facility] Address [address] [place] [address] Phone Care Team Providers Care Qa Tech Name Role Phone Rl Medina DO Primary Care Provider Marlen Gray RN Unavailable [phone] Encounter Details Date Type Department Care Team (Late st Contact Info) Description 11/07/2023 Telephone [facility] Orthopaedic Surgery [address] [facility] 1st Floor [address] [place] [address] Marcial Vu Jr., MD [address] [facility] [address] [place] [address] Social History Tobacco Use Types Packs/Day Years Used Date Smoking Tobacco: Former Cigarettes 1 11 0 11/05/1968 - 11/05/1979 Passive Smoke Exposure: Past Smokeless Tobacco: Never Alcohol Use Standard Drinks/Week Comments Yes 14 (1 standard drink = 0.6 oz pu re alcohol) social AHC Utilities Answer Date Recorded In the past 12 months has [employer], gas, oil, or water company threatened to [...] attend chur ch or amish services? 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 5 minutes prior (at 6:15 p.m.), Hira had developed sudden onset numbness from the waist down involving bilateral lower extremities and the saddle region as well as inability to move his legs, feet, or toes. He also has had pain across the abdomen. He did not have these symptoms previously. They presented to an outside emergency department for this and are there currently. I am concerned that he has a hematoma that is compressing his spinal cord and/or cauda equina. I told them that he should be transferred emergently to [facility] Emergency Department for a full spine MRI. I told him that he should be NPO. We will see him in person as soon as he arrives in the emergency department and obtain the MRI emergently. Marcial Vu Jr., MD Loaders Department of Orthopaedic Surgery Division of Spine Surgery [facility] [employer] [place], [place] G PATCHING MACHINE OPERATOR documented in this encounter Plan of Treatment Not on file documented as of this encounter Visit Diagnoses Not on filedocumented in this encounter Care Teams Qa Tech Relationship Specialty Start Date End Date Rl Medina DO [address] [place] [address] PCP - General 08/09/17 05/25/24 Marlen Gray RN [address] [facility] [address] [place] [address] SHOP Outpatient Exercise Scientist 10/31/23 11/15/23 documented as of this encounter
--- OUTSIDE RECORDS SUMMARY | 2024-11-05 19:23 | XMS_ITS | Encounter Summary ---
Author Organization [facility] Address [address] [place] [address] Phone Care Team Providers Care Journeyman Level Acoustic Analyst Name Role Phone Rl Medina DO Primary Care Provider [phone] Marlen Gray RN Unavailable [phone] Encounter Details Date Type Department Care Team (Late st Contact Info) Description 11/07/2023 Telephone [facility] Pediatric Orthopedics [address] [facility] 1st Floor [address] [place] [address] Marcial Vu MD [address] [place] [address] Social History Tobacco Use Types Packs/Day Years Used Date Smoking Tobacco: Former Cigarettes 1 11 0 11/05/1968 - 11/05/1979 Passive Smoke Exposure: Past Smokeless Tobacco: Never Alcohol Use Standard Drinks/Week Comments Yes 14 (1 standard drink = 0.6 oz pu re alcohol) social AHC Utilities Answer Date Recorded In the past 12 months has [employer] gas, oil, or water company threatened [...] attend chur ch or mandaeism services? Never 11/10/2023 Do you belong to [...] in a care home (including now)? 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 Vu and his nurse Galina and she is requesting a call back to discuss her husbands recent surgery. Call back number provided [phone] REIGHT OPERATIONS AGENT documented in this encounter Plan of Treatment Not on file documented as of this encounter Visit Diagnoses Not on filedocumented in this encounter Care Teams Journeyman Level Acoustic Analyst Relationship Specialty Start Date End Date Rl Medina DO [address] [place] [address] PCP - General 08/09/17 05/25/24 Marlen Gray RN [address] [facility] [address] [place] [address] SHOP Outpatient Soft Shoe Dancer 10/31/23 11/15/23 documented as of this encounter
--- OUTSIDE RECORDS SUMMARY | 2024-11-05 19:23 | XMS_ITS | Encounter Summary ---
Author Organization [facility] Healthcare Address [address] [place] [address] Care Team Providers Care Care Aid Name Role Phone Rl Medina DO Primary Care Provider Marlen Gray RN Unavailable Reason for Visit * Reason Comments Successfully Completed Encounter Details Date Type Department Care Team (Late st Contact Info) Description 10/31/2023 SHOP/CHAP Initial Outreach [facility] OP CASE MANAGEMENT 1 [place] [address] Marlen Gray, RN [address] [facility] [address] [place] [address] Social History Tobacco Use Types Packs/Day Years Used Date Smoking Tobacco: Former Cigarettes 1 11 0 11/05/1968 - 11/05/1979 Passive Smoke Exposure: Past Smokeless Tobacco: Never Alcohol Use Standard Drinks/Week Comments Yes 14 (1 standard drink = 0.6 oz pu re alcohol) social AHC Utilities Answer Date Recorded In the past 12 months has [employer], gas, oil, or water company threatened [...] attend chur ch or lutheran services? Never 10/31/2023 Do you belong to [...] slept in a custodial (including now)? 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 Spoke with patient's Val. reports patient is doing fairly well sincedischarge. Patient is able to ambulate with his walker and states she is making sure he takes several short walks throughout the day. confirms patient has all prescribed medications and verbalized understanding of medication regimen. PCP appointment scheduled for 11/09 at 11:35 and is aware. states she is able to assist patient with ADLs/IADLs as needed, and that their adult children are available for assistance as well. is aware that all options for home health were exhausted by inpatient CM team. has no questions or concerns at this time and consents to OCM outreach. Encouraged to call with any needs. IFIED CYTOTECHNOLOGIST documented in this encounter Plan of Treatment Not on file documented as of this encounter Visit Diagnoses Not on filedocumented in this encounter Care Teams Care Aid Relationship Specialty Start Date End Date Rl Medina DO [address] [place] [address] PCP - General 08/09/17 05/25/24 Marlen Gray RN [address] [facility] [address] [place] [address] SHOP Outpatient Telehealth Case Manager 10/31/23 11/15/23 documented as of this encounter
--- OUTSIDE RECORDS SUMMARY | 2024-11-05 19:23 | XMS_ITS | Encounter Summary ---
Author Organization [facility] Healthcare Address [address] [place] [address] Care Team Providers Care Mohel Name Role Phone Rl Medina DO Primary Care Provider Marlen Gray RN Unavailable [phone] Reason for Visit * Reason Comments Chart Review Encounter Details Date Type Department Care Team (Late st Contact Info) Description 10/31/2023 SHOP/CHAP Initial Eligibility Review [facility] OP CASE MANAGEMENT [address] [place] [address] Em Witt RN [address] [address] Social History Tobacco Use Types Packs/Day Years Used Date Smoking Tobacco: Former Cigarettes 1 11 0 11/05/1968 - 11/05/1979 Passive Smoke Exposure: Past Smokeless Tobacco: Never Alcohol Use Standard Drinks/Week Comments Yes 14 (1 standard drink = 0.6 oz pu re alcohol) social AHC Utilities Answer Date Recorded In the past 12 months has [employer], gas, oil, or water company threatened to [...] often do you attend chur ch or gnosticist services? 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
--- OUTSIDE RECORDS SUMMARY | 2024-11-05 19:23 | XMS_ITS | Encounter Summary ---
Author Organization [facility] Address [address] [place] [address] Phone Care Team Providers Care Biological Plant Operator Name Role Phone Rl Medina DO Primary Care Provider Em Witt RN Unavailable [phone] Marlen Gray RN Unavailable [phone] Reason for Referral * MRI/CAT/PET Scan (Routine) - Pending Review Specialty Diagnoses / Procedures Referred By Contac t Referred To Contact Radiology Diagnoses SDH (subdural hematoma) (HCC) Procedures CT Head WO Contrast Jeremy Mojica MD [address] [facility] [address] [place] [address] Phone: tel: fax: [facility] [address] [place] [address] Referral ID Status Reason Start Date Expiration Date V isits Requested Visits Authorized [id number] Pending Review 10/30/2023 11/28/2024 1 1 CIPAL MECHANICAL ENGINEER Encounter Details Date Type Department Care Team (Late st Contact Info) Description 10/30/[address] [facility] Neurosurgery [address] [facility] Advanced [facility] 6th [place] [address] [place] [address] Jeremy Mojica MD [address] [facility] [address] [place] [address] SDH (subdural hematoma) (HCC) (Primary Dx) Social History Tobacco Use Types Packs/Day Years Used Date Smoking Tobacco: Former Cigarettes 1 11 0 11/05/1968 - 11/05/1979 Passive Smoke Exposure: Past Smokeless Tobacco: Never Alcohol Use Standard Drinks/Week Comments Yes 14 (1 standard drink = 0.6 oz pu re alcohol) social C Utilities Answer Date Recorded In the past 12 months has [employer], gas, oil, or water [employer] threatened to shut off services in your [...] week 10/31/2023 How often do you attend [facility] or confucianist services? Never 10/31/2023 Do you belong to any clubs o r organizations such as religion groups, unions, fraternal or athletic groups, or [...] in a senior care (including now)? 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 Not on file Not on file documented as of this encounter Plan of Treatment Scheduled Orders Name Type Priority Associated Diagnoses Orde r Schedule CT Head WO Contrast Imaging Schedule Latoya Simon Routine (OP Routine) SDH (subdural hematoma) (HCC) Expected: 10/30/2023, Expires: 10/30/2024 documented as of this encounter Visit Diagnoses Diagnosis SDH (subdural hematoma) (HCC)- Primary Subdural hemorrhage documented in this encounter Care Teams Biological Plant Operator Relationship Specialty Start Date End Date Rl Medina DO [address] [place] [address] PCP - General 08/09/17 05/25/24 Em Witt, RN [address] [facility] [address] [place] [address] SHOP Outpatient Commission Auditor 10/30/23 10/30/23 Marlen Gray, RN [address] [facility] [address] [place] [address] SHOP Outpatient Commission Auditor 10/31/23 11/15/23 documented as of this encounter
--- OUTSIDE RECORDS SUMMARY | 2024-11-05 19:23 | XMS_ITS | Encounter Summary ---
Author Organization [facility] Address [address] [place] [address] Phone Care Team Providers Care Truck Body Repairer Name Role Phone Rl Medina DO Primary Care Provider Em Witt RN Unavailable [phone] Marlen Gray RN Unavailable [phone] Encounter Details Date Type Department Care Team (Late st Contact Info) Description 10/30/2023 Telephone [facility] Neurosurgery [address] [facility] 6th [place] [address] [place] [address] Melissa Croft, NARENDRA Social History Tobacco Use Types Packs/Day Years Used Date Smoking Tobacco: Former Cigarettes 1 11 0 11/05/1968 - 11/05/1979 Passive Smoke Exposure: Past Smokeless Tobacco: Never Alcohol Use Standard Drinks/Week Comments Yes 14 (1 standard drink = 0.6 oz pu re alcohol) social C Utilities Answer Date Recorded In the past 12 months has [employer], gas, oil, or water company threatened [...] week 12/27/2023 How often do you attend [facility] or buddhism services? 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 I will refer the patient over to Neurology for seizure managementsince he has had another seizure. I recommended they do not taper his Keppra since he has experienced another seizure. I recommended she continue to keep me updated and if he has another seizure, I will increase his medications. I have encouraged him call with any new or worsening symptoms, questions or concerns. TIONAL MANAGER * Telephone Encounter - Ling Walker CMA - 01/09/2024 1:28 PM CST Pt spouse Val called indicating pt has not started the taper of Keppra as of yet and on Sunday 3/ pt had a seizure that was witnessed by his children at [facility], pt spouse notes started shaking and slumped over lasting less than 1 minute in length. Pt spouse asking how they should proceed at this time with Keppra medication, pt is currently taking 1000mg BID. TIONAL MANAGER * Telephone Encounter - Carey Reddy - 10/30/2023 11:51 AM CST PT is scheduled. Spoke with spouse and let her know that I will be sending reminders in the mail and it will also update on mychart. Pt spouse appreciative of the call TIONAL MANAGER * Telephone Encounter - Melissa Croft RN - 10/30/2023 9:56 AM CST ----- Message from Yumiko Rome MD sent at 10/28/2023 3:17 PM FUNCTIONAL MANAGER ----- Regarding: Follow up Please schedule a follow-up appointment for Hira Evans (: [id number]) to be seen by thenurse practitioner in 4-6 weeks with a head CT without contrast. The patient was seen as a consult for thin BL SDH, which was managed non- operatively with observation. Antiplatelet/anticoagulation medications being held: none Thank you Yumiko Rome MD TIONAL MANAGER documented in this encounter Plan of Treatment Not on file documented as of this encounter Visit Diagnoses Not on filedocumented in this encounter Care Teams Truck Body Repairer Relationship Specialty Start Date End Date Rl Medina DO [address] [place] [address] PCP - General 08/09/17 05/25/24 Em Witt RN [address] [address] SHOP Outpatient Research And Insights Executive 10/30/23 10/30/23 Marlen Gray RN [address] [address] SHOP Outpatient Research And Insights Executive 10/31/23 11/15/23 documented as of this encounter
--- OUTSIDE RECORDS SUMMARY | 2024-11-05 19:23 | XMS_ITS | Encounter Summary ---
Author Organization [facility] Healthcare Address [address] [place] [address] Care Team Providers Care Auto Camp Attendant Name Role Phone Rl Medina DO Primary Care Provider Marlen Gray RN Unavailable Reason for Visit * Reason Comments Successfully Completed Encounter Details Date Type Department Care Team (Late st Contact Info) Description 11/07/2023 SHOP/CHAP Subsequent Outreach [facility] OP CASE MANAGEMENT [address] [place] [address] Marlen Gray, RN [address] [address] Social History Tobacco Use Types Packs/Day Years Used Date Smoking Tobacco: Former Cigarettes 1 11 0 11/05/1968 - 11/05/1979 Passive Smoke Exposure: Past Smokeless Tobacco: Never Alcohol Use Standard Drinks/Week Comments Yes 14 (1 standard drink = 0.6 oz pu re alcohol) social AHC Utilities Answer Date Recorded In the past 12 months has [employer] electric, gas, oil, or water company threatened [...] attend chur ch or adventism services? Never 10/31/2023 Do you belong to [...] in a care home (including now)? 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 Spoke with patient's Val. reports patient had significant increase inpost-op pain yesterday. reported this to surgical team. Patient was given additional pain medication which states has been helping so far. Patient is also scheduled for follow-up with Dr. Vu tomorrow at 10 am for Xrays and evaluation. is aware of this appointment and confirms they plan to attend. Reviewed ED return precautions and verbalized understanding. has no further questions or concerns at this time. Encouraged to call with any needs. TITY ACCESS MANAGEMENT ARCHITECT documented in this encounter Plan of Treatment Not on file documented as of this encounter Visit Diagnoses Not on filedocumented in this encounter Care Teams Auto Camp Attendant Relationship Specialty Start Date End Date Rl Medina DO [address] [place] [address] PCP - General 08/09/17 05/25/24 Marlen Gray RN [address] [facility] [address] [place] [address] SHOP Outpatient Business Professor 10/31/23 11/15/23 documented as of this encounter
--- OUTSIDE RECORDS SUMMARY | 2024-11-05 19:23 | XMS_ITS | Encounter Summary ---
Author Organization [facility] Healthcare Address [address] [place] [address] Care Team Providers Care Development And Housing Director Name Role Phone Rl Medina DO Primary Care Provider Marlen Gray RN Unavailable Reason for Visit * Reason Comments Chart Review Encounter Details Date Type Department Care Team (Late st Contact Info) Description 11/07/2023 SHOP/CHAP Subsequent Outreach [facility] OP CASE MANAGEMENT [address] [place] [address] Latha Yeager, [facility] [address] [facility] Mailstop [phone] [place] [address] Social History Tobacco Use Types Packs/Day Years Used Date Smoking Tobacco: Former Cigarettes 1 11 0 11/05/1968 - 11/05/1979 Passive Smoke Exposure: Past Smokeless Tobacco: Never Alcohol Use Standard Drinks/Week Comments Yes 14 (1 standard drink = 0.6 oz pu re alcohol) social C Utilities Answer Date Recorded In the past 12 months has [employer] electric, gas, oil, or water company threatened [...] attend chur ch or sabianist services? Never 10/31/2023 Do you belong to [...] slept in a penitentiary (including now)? 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 Patient presented to ED with complaint of Pt instructed to come to the ED by provider and has been assigned ED acuity of 2. OCM reviewed the record and contacted Latha Gaston RN, ED CM to discuss patient's care and involvement with SHOP. OCM provided these team members with details about the patient's transition of care, including OCM involved and spoke with the pt today. Pt was instructed to come to ED by provider. Based on the Pt's current situation the following plan was identified: Admit Inpatient.. Contact Marlen Gray [phone] as additional needs are identified. Latha Yeager LCSW COMPLIANCE MANAGER documented in this encounter Plan of Treatment Not on file documented as of this encounter Visit Diagnoses Not on filedocumented in this encounter Care Teams Development And Housing Director Relationship Specialty Start Date End Date Rl Medina DO [address] [place] [address] PCP - General 08/09/17 05/25/24 Marlen Gray RN [address] [facility] [address] [place] [address] [facility] Outpatient Fiberglass Product Tester 10/31/23 11/15/23 documented as of this encounter
--- OUTSIDE RECORDS SUMMARY | 2024-11-05 19:23 | XMS_ITS | Encounter Summary ---
Author Organization [facility] Address [address] [place] [address] Phone Care Team Providers Care Backend Tester Name Role Phone Rl Medina DO Primary Care Provider Marlen Gray RN Unavailable [phone] Reason for Visit * Reason Onset Date Comments Update 11/06/2023 Encounter Details Date Type Department Care Team (Late st Contact Info) Description 11/06/2023 Telephone [facility] Orthopaedic Surgery [address] [facility] [address] 6th [place] [address] [place] [address] Marcial Vu Jr., MD [address] [facility] [address] [place] [address] Update Social History Tobacco Use Types Packs/Day Years Used Date Smoking Tobacco: Former Cigarettes 1 11 0 11/05/1968 - 11/05/1979 Passive Smoke Exposure: Past Smokeless Tobacco: Never Alcohol Use Standard Drinks/Week Comments Yes 14 (1 standard drink = 0.6 oz pu re alcohol) social C Utilities Answer Date Recorded In the past 12 months has [employer], gas, oil, or water [employer] threatened to shut off services in your [...] often do you attend chur ch or religion services? Never 10/31/2023 Do you belong to [...] slept in a assisted (including now)? 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 Pain is in his lower back, right above his tailbone without radiation. Pt previously c/o pain in his ribs and BLE and lower back pain had been tolerableuntil today. Pt took 1 oxycodone after waking up since pain was so severe and his was unsure what else to give him. Pt has not had any issues with incision-no redness, swelling, drainage, or increased incisional pain. Pt continues to have incontinence but believes it is improving with time. Ptdenies new numbness, tingling or pressure in legs, perineal or perianal areas. Val is asking if th ere is anything additional pt can take for pain that is not an opioid or may not make pt drowsy. Ptcurrently taking gabapentin every 8 hours, flexaril prn and oxyodone prn. Informed pt and Cynhumaira I will discuss with Dr. Vu once he is out of surgery and will call them back with additional recommendations. Pt and in agreement with plan. MOBILE WASHER STEAM * Telephone Encounter - Galina Franco RN - 11/06/2023 10:20 AM AUTOMOBILE WASHER STEAM Received call from pt's , Val, with an update on pt. Dr. Vu spoke with pt and his on 11/01. Dr. Vu recommended pt wear compression stockings to help with swelling in bilateral feet and ankles. Dr. Vu also recommended pt wean off gabapentin and flexaril to hopefully assist with pt's grogginess. Val contacted me today stating that pt's swelling has improved with compression stockings. Pt's mentation did improve after discontinuing the flexaril and gabapentin. However, pt's muscle spasms and pain increased greatly over the weekend and pt restarted the gabapentin and flexaril prn on Sunday. Since then, pt has become slightly more groggy again but Val is only givingpt the flexaril when needed. Per Val, pt does not have chest tightness or shortness of breath at this time. Informed Val that I will update Dr. Vu on pt's medication change and will contact pt/ Val again if he has additional recommendations or concerns. Pt or Cynda to also call back withadditional questions or concerns. Val in agreement with plan. MOBILE WASHER STEAM documented in this encounter Plan of Treatment Not on file documented as of this encounter Visit Diagnoses Not on filedocumented in this encounter Care Teams Backend Tester Relationship Specialty Start Date End Date Rl Medina DO [address] [place] [address] PCP - General 08/09/17 05/25/24 Marlen Gray RN [address] [facility] [address] [place] [address] SHOP Outpatient Circus Rider 10/31/23 11/15/23 documented as of this encounter
--- OUTSIDE RECORDS SUMMARY | 2024-11-05 19:23 | XMS_ITS | Encounter Summary ---
Author Organization [facility] Address [address] [place] [address] Phone Care Team Providers Care Pc Analyst Name Role Phone Rl Medina DO Primary Care Provider [phone] Marlen Gray RN Unavailable [phone] Encounter Details Date Type Department Care Team (Late st Contact Info) Description 11/01/2023 Documentation [facility] Orthopaedic Surgery [address] [place] [address] Marcial Vu Jr., MD [address] [facility] [address] [place] [address] Social History Tobacco Use Types Packs/Day Years Used Date Smoking Tobacco: Former Cigarettes 1 11 0 11/05/1968 - 11/05/1979 Passive Smoke Exposure: Past Smokeless Tobacco: Never Alcohol Use Standard Drinks/Week Comments Yes 14 (1 standard drink = 0.6 oz pu re alcohol) social [facility] Utilities Answer Date Recorded In the past 12 months has [employer], gas, oil, or water company threatened to [...] often do you attend chur ch or uatsdin services? 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 Evans's Val called our office earlier today stating that he had been having some swelling in bilateral feet and ankles and asking if compression stockings were OK. I gave them a call this evening. She stated that he has been having some swelling in bilateral feet and ankles. This is not particularly painful. He has not been having any chest pain or shortness of breath. He has been having some grogginess which I suspect may be related to gabapentin which was on his discharge medication list. I recommended that they taper the gabapentin and we discussed a tapering regimen. I also told them that compression stockings would be great for his feet and ankles. I also recommended elevation of the feet to help with swelling. Finally, I told them that they should present to the emergency department immediately if he has any chest pain or shortness of breath. All questions were answered. They are understanding and in agreement. Marcial Vu Jr., MD Lithographic Plate Maker Apprentice Department of Orthopaedic Surgery Division of Spine Surgery [facility] [employer] [place], [place] TRIC MOTOR FITTER documented in this encounter Plan of Treatment Not on file documented as of this encounter Visit Diagnoses Not on filedocumented in this encounter Care Teams Pc Analyst Relationship Specialty Start Date End Date Rl Medina DO [address] [place] [address] PCP - General 08/09/17 05/25/24 Marlen Gray RN [address] [facility] [address] [place] [address] SHOP Outpatient Induction Coordination Engineer 10/31/23 11/15/23 documented as of this encounter
--- OUTSIDE RECORDS SUMMARY | 2024-11-05 19:24 | XMS_ITS | Encounter Summary ---
Author Organization [facility] Healthcare Address [address] [place] [address] Care Team Providers Care Equipment Inspector Name Role Phone Rl Medina DO Primary Care Provider Em Witt RN Unavailable [phone] Reason for Referral * Consultation (Routine) - Closed Specialty Diagnoses / Procedures Referred By Manisha gale Referred To Contact Neurology Diagnoses Seizures, generalized convulsive (HCC) Hayder Vu Jr., MD [address] [facility] [address] [place] [address] Phone: tel: fax: [facility] Epilepsy [address] [facility] 6th [place] [address] [place] [address] Phone: tel: fax: Referral ID Status Reason Start Date Expiration Date V isits Requested Visits Authorized [id number] Closed Specialty Services Required 10/25/2023 11/23/2024 1 1 Question Answer Please select the performing region: [facility] (All Locations) [167] # of visits: 1 Comments Please schedule patient for follow up appointment. Section: Epilepsy Provider: First available Time Frame: First available Schedule with Transition of Care Clinic: No MILL OPERATOR Reason for Visit * Reason Comments Urinary Problem * Auth/Cert Specialty Diagnoses / Procedures Referred By Manisha gale Referred To Contact Diagnoses Ureteral colic Procedures na Referral ID Status Reason Start Date Expiration Date Visits Re quested Visits Authorized [id number] 1 1 Encounter Details Date Type Department Care Team (Latest Contact Info) Description 10/12/2023 6:25 PM HOB MILL OPERATOR - 10/30/2023 4:07 PM HOB MILL OPERATOR Hospital Encounter [facility] [address] [place] [address] Rafael Cowan MD [address] [place] [address] Delvin Harrington MD [address] [place] [address] Paula Medina MD [address] [place] [address] Marquise Lim MD [address] [place] [address] Jimenez Henao MD [address] [place] [address] Pipe Moseley MD [address] [place] [address] Hayder Vu Jr., MD [address] [facility] [address] [place] [address] Ureteral colic (Primary Dx); Hydronephrosis with urinary obstruction due to renal calculus; Pyelonephritis; Left lumbar radiculopathy; Left leg weakness; Cardiac arrest (HCC); Seizures, generalized convulsive (HCC); Lumbar radiculopathy Discharge Disposition: Discharge to home or self [...] often do you attend chur ch or cheondoism services? 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 Not on file Not on file Not on file documented as of this encounter Last Filed Vital Signs Vital Sign Reading Time Taken Comments Blood Pressure 141/82 10/30/2023 11:40 AM HOB MILL OPERATOR Pulse 96 10/30/2023 11:35 AM HOB MILL OPERATOR Temperature 36.5 ??C (97.7 ??F) 10/30/2023 11:[address] Respiratory Rate 18 10/30/2023 11:35 AM HOB MILL OPERATOR Oxygen Saturation 98% 10/30/2023 11:40 AM HOB MILL OPERATOR Inhaled Oxygen Concentration - - Weight 88.6 kg (195 lb 5.2 oz) 10/23/2023 10:35 PM HOB MILL OPERATOR Height 172.7 cm (5' 8 ) 10/13/2023 4:15 AM HOB MILL OPERATOR Body Mass Index 29.7 10/13/2023 4:15 AM HOB MILL OPERATOR documented in this encounter Discharge Summaries * Rafael Rodriguez NP - 10/30/2023 1:19 PM CST Images from the original note were not included. Spine Inpatient Discharge Summary Admitting Provider: Hayder Vu MD Discharge Provider: Hayder Vu Fo* Primary Care Physician at Discharge: Rl Medina DO [phone] Admission Date: 10/12/2023 Discharge Date: 10/30/2023 Primary Discharge Diagnosis: Hydronephrosis with urinary obstruction due to renal calculus Secondary Discharge Diagnosis: Principal Problem: Hydronephrosis with urinary obstruction due to renal calculus Active Problems: HTN (hypertension) Prostate cancer (HCC) Lumbar radiculopathy Ureteral colic UTI (urinary tract infection) Left perinephric collection, 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 S/P spinal fusion Cardiac arrest (HCC) Pulmonary embolism (HCC) Resolved Problems: No resolved hospital problems. DETAILS OF HOSPITAL STAY Chief Complaint: Back Pain History of Present Illness: The patient is a 73 y.o. year old male cared for by Dr. Hayder Vu with UTI on preop testing for OR next week w/ Horace. He is currently scheduled to have an L4-5 posterior spinal fusion with TLIFnext week. He went to preop testing and was found to have UTI. His weakness is worsening and he is trouble ambulating at this time. He continues to have intermittent radicular pain in the left lower e xtremity which was present during evaluation. He is a non smoker, +social EtOH, THC edibles , requires walker and is having increasing difficulty with ambulation, lives w/ spouse. PMH of Arthritis, prostate ca, GERD, melanoma, Hypertension, Kidney stone, pna, allergic rhinitis. MRI of the lumbar spine from 10/01/2023 with and without contrast shows diffuse lumbar disc degeneration. There is what appears to be a left-sided cranially extruded L4-L5 disc herniation with severeforaminal stenosis on the left causing severe compression of the exiting left L4 nerve. There is also a left far lateral disc protrusion at L4-L5 and facet hypertrophy causing stenosis in the extraforaminal zone with compression of the left L4 nerve as well as the left lateral recess with compression of the traversing left L5 nerve. There is contrast enhancement within the left neural foramen likely secondary to inflammation. There is severe right-sided L5-S1 neural foraminal stenosis. The risks, benefits, alternatives and complications of a Lumbar posterior spinal fusion and Transforaminal Lumbar Interbody Fusion were discussed with the patient at length prior to surgery. The patient elected to proceed with a surgical intervention given the significant influence on their qualityof life. Informed consent was obtained prior to surgery. Operative Procedures Performed: Procedure(s): FUSION SPINAL - POSTERIOR LUMBAR/THORACIC WITH INSTRUMENTATION: L4-5 open posterior spinal fusion with instrumentation, L4-5 transforaminal lumbar interbody fusion, L4-5 laminectomy and direct decompression, spinal cord monitoring, autograft, allograft LAMINECTOMY LUMBAR - POSTERIOR SPINAL CORD MONITORING Hospital Course 10/12-10/23 under the care of medicine 10/12 presented to ED from preoperative anesthesia visit due to concerning UA. Admitted to Medicine from ED w complicated E. Coli UTI w L ureteral stone 10/13 L ureteral stent aborted by Urology 10/14 L perc nephrostomy by IR 10/18 return to OR with Urology for laser lithotripsy and removal of 2 ureteral stones, removal of nephrostomy tube, placement of L ureteral stent 10/23 OR for L4-5 open posterior spinal fusion and decompression with transforaminal lumbar interbody fusion , Seizure in PACU with reported loss of pulses (ROSC after 2 minutes CPR + 1 dose epinephrine), transferred to ICU. CT head revealed small bilateral SDH and CT PE showing bilateral acute PEs. Neurology c/s 10/25 Medicine c/s for hep gtt management while on heparin gtt 10/26 Dc heparin gtt and start therapeutic lvx. S/p 2U PRBC's, post tx hgb 9.3. 10/27 Medicine rec anticoagulation for 3-6 months. Transitioned from heparin ggt to lovenox yesterday. 10/28 Dressing changed. Nsgy c/s for bilat sdh, no intervention, f/u OP in 4 weeks. PT updated recsto home. 10/30 Pt okay to discharge home The patient was able to wean away from intravenous narcotics , the patient was able to mobilize with physical and occupational therapy, the patient had post operative images and those images were reviewed by the surgeon, and the patient was felt to be stable for discharge to home with home health on 10/30/23 Problems addressed during this hospitalization: L4-L5 Radiculopathy --s/p L4-5 open PSF and decompression with TLIF on 10/23, closed with nylon --Reports improvement in preoperative pain --Post-op x-rays completed on 10/30 --therapy recommended home with home health --Patient will follow up with Dr. Vu outpatient 2. Acute Encephalopathy c/f seizure --Neurology following --10/24: routine EE) left hemisphere slowing, and 2) moderate generalized slowing of the background --10/23 CTH w left frontal alvarado-white matter changes c/f prior stroke also with small subacute SDH bilaterally --repeat CTH 10/28 unchanged --brain MRI 10/25 unchanged SDH, no evidence of neuronal migration --continue keppra 1g BID until neurology f/u appt 3. SDH, subacute --as above --neurology c/s --nsrg c/s, no surgical intervention, f/u OP in 4 weeks with repeat HCT 4. s/p cardiac arrest - Bilateral PE on CT - EKG NSR without ST changes - TTE 10/24 Mild-moderate RV cavity enlargement with Terrell sign. Overall, normal RV function.No valvular abnormality noted. LV cavity size is normal with normal systolic function. LVEF70%. Grade I diastolic function with normal mean LA pressure. Normal IVC. Normal aorta. 5. Bilateral pulmonary emboli - 10/23 CTPE: Acute pulmonary emboli involving the distal right and left main pulmonary arteries extending into all bilateral lobar and multiple bilateral segmental pulmonary arteries. No CT evidenceof right heart strain. - Heparin gtt, no bolus, 10/24-10/27 - therapeutic lovenox started x 3 months then transition to PO med per PCP 6. Hydronephrosis with urinary obstruction d/t renal calculus --Admitted to Medicine from ED w complicated E. Coli UTI w L ureteral stone --10/13 L ureteral stent aborted by Urology --10/14 L perc nephrostomy by IR --10/18 return to OR with Urology for laser lithotripsy and removal of 2 ureteral stones, removal of nephrostomy tube, placement of L ureteral stent --f/u with urology OP for ureteral stent removal 7. Acute on chronic pain - scheduled APAP, gabapentin, lidocaine patches - prn oxy, dilaudid, flexeril while inpatient 8. Acute blood loss anemia --likely surgery related --2u pRBC on 10/26 --serial CBCs Consults: Neurology, Neurosurgery, Urology, Medicine Other Procedures: --10/14 L perc nephrostomy by IR --10/18 laser lithotripsy and removal of 2 ureteral stones, removal of nephrostomy tube, placement of L ureteral stent GI/ Concerns: Tolerating regular diet. Last bowel movement was 10/29 Harris removed on 10/25, now voiding spontaneously. Therapy recommendations: Home with home health Incision: Non-absorbable sutures Brace: N/A Surgical drains: N/A Central Line Removed: N/A Blood Transfusions: 10/26 2u pRBC Notable medications: Pain medications: cammy gabapentin, prn flexeril and oxycodone 2. Steroids: none 3. Antibiotics: ancef and vanc post op 4. Anticoagulation/antiplatelet agents: Lovenox x 90 days Test Results Pending at Discharge: Pending Labs Order Current Status Magnesium Collected (10/29/23526) Magnesium Collected (10/30/23452) Phosphorus Collected (10/29/23526) Phosphorus Collected (10/30/23452) Basic metabolic panel In process CRP (acute phase) In process Erythrocyte sedimentation rate In process Magnesium In process Phosphorus In process Pertinent Diagnostic Results: 10/30 Lumbar XR IMPRESSION: 1. Posterior instrumented spinal fusion from L4 to L5 with combined interbody fusion. 10/28 HCT IMPRESSION: 1. Thin bilateral subdural collections along the cerebral convexities, not significantly changed in size, which may represent some combination of subdural hemorrhage and hygromas. 2. No new acute intracranial hemorrhage, significant mass effect, or hydrocephalus. MRI brain epilepsy 10/25 IMPRESSION: 1. Thin bilateral convexity subdural hematomas, not significantly changed in size compared to the prior head CT. 2. Diffuse pachymeningeal thickening and enhancement likely related to recent lumbar surgery. 3. No MR evidence of abnormalities of neuronal migration. TTE 10/24 Mild-moderate RV cavity enlargement with Terrell sign. Overall, normal RV function (TAPSE 2.5 cm). Estimated PA systolic pressure 40+RA(8) mmHg. No valvular abnormality noted. LV cavity size is normal with normal systolic function. LVEF70%. Grade I diastolic function with normal mean LA pressure. Normal Inferior vena cava. Normal aorta. No prior study. 10/23 HCT IMPRESSION: Subtle white matter hypoattenuation with loss of alvarado-white differentiation the left frontal pole. If there is clinical concern for stroke, MRI of brain can be performed for further evaluation. CT PE 10/23 IMPRESSION: 1. Acute pulmonary emboli involving the distal right and left main pulmonary arteries extending into all bilateral lobar and multiple bilateral segmental pulmonary arteries. No CT evidence of right heart strain. 2. Interval removal of the left percutaneous nephrostomy tube and placement of left double-J ureteral stent. There is a stable left renal subcapsular hematoma and a 10 mm crescentic density along theureteral stent, which likely represent residual calculus. 3. New right 2nd through 6th and left 2nd through 7th rib fractures, likely secondary to cardiopulmonary resuscitation. DEXA 10/18 IMPRESSION: 1. The bone mineral density of the lumbar spine is normal. 2. The bone mineral density of the left femoral neck is normal. 3. The bone mineral density of the left total hip is normal. 4. Overall, the above findings are normal by WHO criteria. Physical Exam at Discharge: Gen: no acute distress Neuro: A&Ox3 Dressing: clean/dry/intact Wound Vac(s): Not applicable Hemo Vac(s): N/a Motor: Muscle Strength Right Left Iliopsoas (L2/3) 5/5 4-/5 Quadriceps (L3/4) 5/5 2/5 Tibialis anterior (L4/5) 5/5 4/5 Extensor hallicus longus (L5) 5/5 4/5 Gastrocsoleus complex (S1) 5/5 5/5 Sensation Left upper extremity: SILT C5 to T1 dermatomes. Right upper extremity: SILT C5 to T1 dermatomes. Left lower extremity: SILT L2 to S1 dermatomes. Right lower extremity: SILT L2 to S1 dermatomes. Vascular: Bilateral Upper Extremity: 2+ radial pulse, fingers WWP Bilateral Lower Extremity: 2+ DP pulse, toes WWP Discharge Condition: Good Vital Signs Pulse: 96 Resp: 18 BP: 141/82 Temp: 36.4 ??C (97.6 ??F) Weight: 88.6 kg (195 lb 5.2 oz) SpO2: 96 % Follow-up: Spine: Scheduled for 11/12 for suture removal and 12/03 . Urology 12/13 Neurosurgery; appt tasked for 4 weeks with f/u HCT Neurology; call to schedule appt on discharge Lab tests/imaging necessary on follow-up: spinal XR, HCT Future Appointments Date Time Provider Department Center 11/12/2023 9:20 AM Hayder Vu MD SPIN CAM 6A [facility] 12/03/2023 1:20 PM Hayder Vu MD SPINE BW4 [facility] 12/13/2023 1:20 PM Pan Irene MD URO BW MOB4 [facility] 12/24/2023 2:20 PM [facility] BCT3 [facility] N CT [facility] Main IMG 12/24/2023 3:30 PM Carrie Jerez, [facility] SPINE [id number] NS Chem/LFT Lab History Latest Ref Rng & Units 10/25/2023 20:41 10/26/2023 10/27/2023 23:32 10/29/2023 Labs-Chem/LFT Sodium 135 - 145 mmol/L 133 137 135 137 Creatinine 0.80 - 1.30 mg/dL 0.86 0.86 0.88 0.95 CrCl- Actual Body Weight (Cockcroft-Gault) 97.3 97.3 95.1 88.1 Details More values are hidden. Newest values shown. Go to activity for more data. Hematology Lab History Latest Ref Rng & Units 10/25/2023 10/26/2023 10/27/2023 10/29/2023 Labs - Hematology WBC 3.8 - 9.9 K/cumm 10.0 8.6 6.0 7.2 Total Hb, POC 13.0 - 17.5 g/dL 7.0 9.5 8.6 9.4 Hct 38.9 - 50.3 % 19.7 27.6 25.3 28.0 Plt 150 - 400 K/cumm 320 313 295 313 Neutrophil abs 1.5 - 6.5 K/cumm 7.3 6.7 3.9 4.9 Lymphocytes, abs 0.8 - 3.3 K/cumm 1.6 1.1 1.2 1.3 Details More abnormal values are hidden. Newest values shown. Go to activity for more data. More values are hidden. Newest values shown. Go to activity for more data. Discharge Medication List: Current Medications TAKE these medications acyclovir 400 mg tablet Take 1 tablet [...] 1 tablet (10 mg total) by mouth tugger operator before breakfast For: inflammation of the nose due to an allergy Commonly known as: ZyrTEC cholecalciferol 5,000 unit capsule Take 1 capsule (5,000 Units total) by mouth every morning For: low vitamin D levels Commonly known as: VITAMIN D-3 coenzyme Q10 100 mg capsule Take 1 capsule (100 mg total) by mouth tugger operator before breakfast cyclobenzaprine 5 mg tablet Take [...] the skin every 12 (twelve) hours For: Pulmonary Embolism Commonly known as: LOVENOX fish,bora,flax oils-om3,6,9no1 400-400-400 mg capsule Take 1 tablet by mouth tugger operator before breakfast For: Supplement gabapentin 300 mg capsule Take 1 capsule (300 mg total) by mouth every 8 (eight) hours For: pain Commonly known as: NEURONTIN irbesartan 300 mg tablet Take 1 tablet (300 mg total) by mouth every morning For: high blood pressure Commonly known as: AVAPRO levETIRAcetam 1,000 mg tablet Take 1 tablet [...] Gastric Disorder, GERD Commonly known as: PriLOSEC oxyCODONE 5 mg immediate release tablet Take 1 tablet (5 mg total) by mouth every 4 (four) hours as needed for pain For: pain Commonly known as: ROXICODONE senna-docusate 8.6-50 mg Take 1 tablet by mouth 2 (two) times a day for 15 days For: constipation Commonly known as: PERICOLACE tamsulosin 0.4 mg extended release capsule Take 2 capsules (0.8 mg total) by mouth daily with dinner Commonly known as: FLOMAX Discharge Instructions: Activity Instructions Discharge Activity: Lifting restrictions *Do NOT lift greater than 10 pounds until 6 weeks or released from your Surgeon *Do NOT lift anything above your head Discharge Activity: Out of bed walking *Out of bed walking at least 6-8 times every day *Ask your surgeon before doing any other kind of exercise Discharge Activity: Stairs *You may climb stairs now Discharge activity: Activity restrictions *Do not go back to work until your surgeon says it's OK. *Do not jog, run or bike until your surgeon says it's OK. *Do not do any casino controller that cause you to twist, push or pull; such as laundry, vacuuming grocery shopping and childcare. *Do not flex (bring your head to your chest) or extend (lift your chin up high and away from your chest) unless your surgeon says it's OK. *Slowly work up to your normal activities at home with the exceptions as already noted. Discharge activity: Out of bed to chair *Out of bed to chair at least 3 times every day Diet Instructions Adult Discharge Diet Diet Type: Return to previous diet Contact Information for Follow-ups [facility] (All Locations) Next Steps: Follow up Comments: Please schedule patient for follow up appointment. Section: Epilepsy Provider: First available Time Frame: First available Schedule with Transition of Care Clinic: No Questions: Please select the performing region: [facility] (All Locations) # of visits: 1 Referral Status: Pending Coordinator Review [facility] Home Care Services Specialty: Home Health and Hospice [id number] [facility] [address] Next Steps: Follow up Questions: Service Line: Home Health Primary disciplines requested: Physical Therapy Secondary disciplines requested: Occupational Therapy Home Health Services: Therapy to Eval/Tx Therapy instructions: ADL/ ladl management Evaluation/treatment Post surgical rehab Requested Start of Care Date: 24-48 hours Physician to follow patient's care (the person listed here will be responsible for signing ongoing orders): PCP I attest that I or another qualified licensed provider saw the patient 90 days prior to or 30 days post admission and this face to face encounter meets the necessary Home Health requirements. The face to face encounter occurred on (date): 10/30/2023 The encounter with the patient was in whole, or in part, for the following medical condition, whichis the primary reason for home health care. (List medical condition): lumbar radiculopathy I certify that, based on my findings, the following services are medically necessary skilled home health services: Therapy to Eval/Tx Clinical findings that support the need for home care: Frequent falls requiring safety eval/therapy I certify that my clinical findings support patient's homebound status. Homebound criteria met because: Requires assistance of another to leave home safely Pain and impaired mobility post-op Referral Status: Pending Authorization Other Instructions Ambulatory referral to Home Health Service Line: Home Health Primary disciplines requested: Physical Therapy Secondary disciplines requested: Occupational Therapy Home Health Services: Therapy to Eval/Tx Therapy instructions: ADL/ ladl management Evaluation/treatment Post surgical rehab Requested Start of Care Date: 24-48 hours Physician to follow patient's care (the person listed here will be responsible for signing ongoing orders): PCP I attest that I or another qualified licensed provider saw the patient 90 days prior to or 30 days post admission and this face to face encounter meets the necessary Home Health requirements. The face to face encounter occurred on (date): 10/30/2023 The encounter with the patient was in whole, or in part, for the following medical condition, whichis the primary reason for home health care. (List medical condition): lumbar radiculopathy I certify that, based on my findings, the following services are medically necessary skilled home health services: Therapy to Eval/Tx Clinical findings that support the need for home care: Frequent falls requiring safety eval/therapy I certify that my clinical findings support patient's homebound status. Homebound criteria met because: Requires assistance of another to leave home safely Pain and impaired mobility post-op Call 911 if you have chest pain or shortness of breath Call provider for any of the following: *Temperature greater than 101 degrees F or 38.5 C *You have any drainage from your incision *The skin around your incision is swollen and/or red *The incision starts to separate and open up *Pain medicine, rest or warm packs are not helping your pain *You are having new numbness or weakness *You begin feeling very weak *You are having numbness in your pelvic area *You are not able to control your bladder *You lose control of your bowels *You have constipation for longer than 5 days *You are having a hard time swallowing liquids *You have nausea or vomiting that will not go away *You have any swelling, warm to touch or painful areas in your legs. This needs IMMEDIATE attention. Care Instructions: Incisions When you leave the hospital your incision can be open to the air. You have steri strips or skin glue on your incision, both will come off on their own. You should look at your incision daily checking for swelling, redness, warmth or drainage. It is normal for the skin edges to look a little reddened while healing. It is normal for your incision to itch when it's healing. Please call the office if you are concerned about your incision. *Do not use lotions or creams on your incision *Do not place ice or heat directly on your incision Care Instructions: No tub baths -No tub baths, whirlpools or swimming until your doctor says it's ok. Care Instructions: Shower You may not shower until you see Dr. Vu. Do NOT submerge your incision (in a tub, hot tub, pool, russo, river, or any body of water) until it is healed and your surgeon says it's ok. Do NOT use lotion, oil, alcohol or cream on your incision. Care Instructions: Surgical Dressing *Keep wound clean and dry at all times *Use a waterproof dressing while showering. Discharge Wound Type: Stitches/[place] -Stitches/annika will be removed at your next appointment Incentive Spirometry Use your incentive spirometer 10 times every hour while awake for one week. Medication instructions * You are being discharged from the hospital with a prescription for narcotic pain medication oxycodone that should last you 7 days. If you need more pain medication, please contact your surgeon's office for an additional prescription. * Constipation Prevention: Pain medications and recent surgery can cause constipation. You will receive a prescription for stool softeners. If you are not having bowel movements after being discharged from the hospital and taking stool softeners, please contact your surgeon's office for further instructions. STOP TAKING these medications if you start to experience diarrhea. Special Instructions *You should not smoke or use nicotine based e-cigarettes or any nicotine based products *You should not be around second hand smoke *Smoking decreases blood flow to your spinal cord, slows the healing process, and increases your risk of infection. Special Instructions Follow up with your primary care physician as soon as possible to discuss your surgery and hospitalstay. During this admission you may have been started on new medications that may require management by your primary care physician. It will be helpful at your appointment to bring your After Visit Summary (AVS) for your provider to review. SEE AVS Cosigned by Hayder Vu MD at 10/31/2023 3:37 PM HOB MILL OPERATOR MILL OPERATOR MILL OPERATOR MILL OPERATOR documented in this encounter Discharge Instructions * Discharge Instructions* Rafael Rodriguez NP - 10/30/2023 10:21 AM HOB MILL OPERATOR Thoracic/Lumbar Spinal Fusion Post-Operative Instructions Questions: ?? For any post-operative questions, please contact Dr. Horace Moijca???s nurse, at [phone] via [employer]. Galina will view and respond to your [employer] questions sent to Dr. Vu. Wound Care: [...] you upon discharge. Please call Galina at [phone] if unable to keep appointment. Nov 09, 2023 11:[address] Rl Medina Post-hospitalization appointment Nov 12, 2023 9:20 AM New with Hayder Vu MD [facility] Orthopaedic Surgery ( ORTHOPEDIC SURGERY) [address] 6th Floor [address] [facility] [id number] Dec 03, 2023 1:20 PM Return with Hayder Vu MD [facility] Orthopaedic Surgery (WOOD ORTHOPEDIC SURGERY) [address] [facility] [phone] Dec 13, 2023 1:20 PM Return with Pan Irene MD [facility] Urology (WOOD SURGERY) [address] [facility] [phone] CALL [facility] NEUROLOGY FOR FOLLOW UP APPT WITH THE [facility] EPILEPSY DEPARTMENT [phone] Emergencies: SIGNS OF AN EMERGENT SITUATION INCLUDE-If [...] it is best that you return to [facility] for your emergent care. Please call the emergency exchange at [phone] or toll free any time of the day or night on the daysthe office is closed, so that the emergent care can be initiated for you. Please follow these instructions for emergency calls: -During business hours (Sunday through Sunday 8am-4:30 PM except for holidays), call [phone]. The punch operator will connect you with Dr. Vu???s nurse. Dr. Vu???s nurse reports all emergencies to Dr. Vu. -After business hours (after 4:30 PM and before 8:00am) you may call the Emergency Orthopaedic Exchange at [phone] or TOLL [phone]. The punch operator emergency management consultant will contact Dr. Echeverria???s staff. IMPORTANT: Refills of medications need to be done during business hours-NO pain medication refills will be given over the phone after hours. Please call with any questions or concerns. We will be glad to assist you in any way during your recovery period. Dr. Vu???s Staff Galina Franco RN: [phone] MILL OPERATOR MILL OPERATOR MILL OPERATOR MILL OPERATOR MILL OPERATOR MILL OPERATOR documented in this encounter Medications at Time of Discharge acyclovir (ZOVIRAX) 400 mg tabletIndications :Chronic Suppression [...] 1 tablet (10 mg total) by mouth tugger operator before breakfast 4 cholecalciferol (VITAMIN D-3) 5,000 unit capsuleIndication s:Vitamin D Deficiency Take 1 capsule (5,000 Units total) by mouth every morning 4 coenzyme Q10 100 mg capsule Take 1 capsule (100 mg total) by mouth tugger operator before breakfast 4 cyclobenzaprine (FLEXERIL) 5 mg tablet Take 1 tablet (5 mg total) by mouth 3 (three) times a day as needed for muscle spasms 90 tablet 10/30/2023 4 DILT-XR 240 mg 24 hr capsuleIndication s:hypertension Take 1 capsule (240 mg total) by mouth 2 (two) times a day 0 05/12/2019 4 enoxaparin (LOVENOX) 80 mg/0.8 mL syringeIndication s:Pulmonary Embolism Inject 0.8 mL (80 mg total) under the skin every 12 (twelve) hours 48 mL 2 10/30/2023 4 fish,bora,flax oils-om3,6,9no1 400-400-400 mg capsuleIndication s:Supplement Take 1 tablet by mouth tugger operator before breakfast 4 gabapentin (NEURONTIN) 300 mg capsuleIndication s:Pain Take 1 capsule (300 mg total) by mouth every 8 (eight) hours 90 capsule 10/30/2023 4 irbesartan (AVAPRO) 300 mg tabletIndications :hypertension Take 1 tablet (300 mg total) by mouth every morning 08/10/2021 4 levETIRAcetam (KEPPRA) 1,000 mg tablet Take [...] hours as needed for pain 30 tablet 10/30/2023 4 senna-docusate (PERICOLACE) 8.6-50 mgIndications:con stipation Take 1 tablet by mouth 2 (two) times a day for 15 days 30 tablet 10/30/2023 4 tamsulosin (FLOMAX) 0.4 mg extended release capsule Take 2 capsules (0.8 mg total) by mouth daily with dinner 60 capsule 10/30/2023 4 documented as of this encounter Ordered Prescriptions Prescription Sig Dispense Quantity Refills Last Filled Start Date End Date tamsulosin (FLOMAX) 0.4 mg extended release capsule Take 2 capsules (0.8 mg total) by mouth daily with dinner 60 capsule 10/30/2023 4 senna-docusate (PERICOLACE) 8.6-50 mgIndications:cons tipation Take 1 tablet by mouth 2 (two) times a day for 15 days 30 tablet 10/30/2023 4 levETIRAcetam (KEPPRA) 1,000 mg tablet Take 1 tablet (1,000 mg total) by mouth 2 (two) times a day 60 tablet 1 10/30/2023 4 gabapentin (NEURONTIN) 300 mg capsuleIndications :Pain Take 1 capsule (300 mg total) by mouth every 8 (eight) hours 90 capsule 10/30/2023 4 cyclobenzaprine (FLEXERIL) 5 mg tablet Take 1 tablet (5 mg total) by mouth 3 (three) times a day as needed for muscle spasms 90 tablet 10/30/2023 4 enoxaparin (LOVENOX) 80 mg/0.8 mL syringeIndications :Pulmonary Embolism Inject 0.8 mL (80 mg total) under the skin every 12 (twelve) hours 48 mL 2 10/30/2023 4 oxyCODONE (ROXICODONE) 5 mg immediate release tabletIndications: Pain Take 1 tablet (5 mg total) by mouth every 4 (four) hours as needed for pain 30 tablet 10/30/2023 4 documented in this encounter Discharge Disposition Disposition Code Departure Means Destination Comment s Discharge to home or self care documented in this encounter Progress Notes * Nathalie Herrera RN - 10/30/2023 1:25 PM CST 10/30/23 1325 Communications Important Message from Medicare notice given to patient? Yes MCCALL letter given? Not Applicable Patient choice (Home Health/Hospice) list given to patient/equal opportunity representative? Not Applicable Senior Living Facility list given to patient/equal opportunity representative? Not Applicable IM letter completed with patient at bedside. Patient informed of the planned discharge date, the date the beneficiary's financial liability begins, the beneficiary's appeal rights, and how and when to initiate an appeal. Patient provided copy of IM letter, IM letter placed in unit's designated medical record bin to be uploaded into patient's chart. Nathalie Herrera, CLAIRE, RN MILL OPERATOR * Nathalie Herrera RN - 10/30/2023 9:08 AM CST 10/30/23 0908 Communications Important Message from Medicare notice given to patient? Not Applicable MCCALL letter given? Not Applicable Patient choice (Home Health/Hospice) list given to patient/equal opportunity representative? Yes Senior Living Facility list given to patient/equal opportunity representative? Not Applicable Fiduciary Responsibility Patient/Designated decision maker was informed of [facility] fiduciary relationship as necessary Capacity Planning Analyst noted patient has been recommended for home heatlh by PT/OT. Capacity Planning Analyst met with thepatient at bedside to discuss recommendations by therapy and to work on a potential discharge disposition plan. Capacity Planning Analyst provided education to patient on therapy recommendations and home health services. Patient reported being interested in home health. geographic information systems manager provided a home health list to patient. Patient selected the following choices (preference order): Residential ([facility]) Home Health [facility] Home Health geographic information systems manager sent out referrals via ECIN. CM awaiting acceptance from a home health agency and [facility] to work on discharge planning with patient and family. Patient states he has own wheeled walker. Nathalie Herrera, CLAIRE, RN [place] * Nathalie Champagne, PT - 10/30/2023 7:32 AM CST Physical Therapy Physical Therapy Progress [...] treatment team and contact the PT or PREMIUM NOTE INTEREST CALCULATOR CLERK currently assigned to this patient. If a physical therapy clinician is not assigned to this patient, please call [phone]. 10/30/23 7088 PT Last Visit Session Type Treatment (and discharge) PT Received On 10/30/23 Safe Environment Arm band checked;Patient found in supine;Session completed bedside;Gait belt utilized for all out of bed mobility (Gait belt placed inferior to axillae and away from the incision.) Subjective Agreeable to Therapy Family/Caregiver Present No Precautions Precautions Fall risk;Spinal/Back Activity Tolerance Activity Tolerance Comments Bryson: Somewhat Hard Pain Assessment Pain Assessment No/denies pain ((At rest)) Cognition Orientation Oriented X4 (person, place, time, situation) Following Commands Follows all commands and directions without difficulty Safety Judgment Good awareness of safety precautions Balance Balance Yes Static Sitting Balance Static Sitting-Balance Support No upper extremity supported;Feet supported Static Sitting-Sitting Surface Bed;Chair Static Sitting-Level of Assistance Independent Static Standing Balance Static Standing-Balance Support Bilateral upper extremity supported (on wheeled walker) Static Standing-Standing Surface Floor Static Standing-Level of Assistance Close supervision (For safety) Bed Mobility Bed Mobility Yes Bed Mobility 1 Bed Mobility From 1 Supine Bed Mobility Type 1 To Bed Mobility to 1 Short sit;Edge of bed Level of Assistance 1 Minimum Assist;Minimal verbal cues Bed Mobility Comments 1 Log-rolled. Required assistance for trunk elevation. Provided cues for technique. Head of bed was flat. Transfers Transfer Yes Transfer 1 Transfer From 1 Sit Transfer Type 1 To and from Transfer to 1 Stand Transfer Device 1 Wheeled walker Transfer Level of Assistance 1 Standby Assist;Minimal verbal cues Trials/Comments 1 Provided cues for hand placement. Ambulation Functional Ambulation Category 3 Ambulation Yes Ambulation 1 Distance (ft) 1 120 Surface 1 Level tile Device 1 Wheeled walker Assistance 1 Standby Assist;Minimal verbal cues Gait: Requires verbal cues to 1 Use assistive device safely;Improve upright posture (Maintain appropriate proximity to wheeled walker.) Gait Deviations 1 Phyllis - decreased;Step length - decreased;Posture - flexed Stairs Stairs No Stair Comments Patient politely declined to practice ascending/descending stairs again; reports that's easy. Provided education that if patient is fatigued when he returns home, he should use a non-reciprocal pattern when ascending the stairs to enter his home; noted from a balance/strength perspective, it is easier to use a non-reciprocal pattern. Also encouraged patient to have spouse assist him. Patient indicated understanding. Per documentation from 10/28/23 (Celena Hein), patient wasable to ascend/descend three stairs with a unilateral handrail and standby assistance. Other Comments Other PT Comments Spinal fusion precautions were reviewed and maintained. Patient demonstrated ability to perform all mobility safely; reports no concerns regarding discharge home from a mobility perspective. Encouraged ambulation with wheeled walker for exercise. Basic Mobility - 6 Click How much difficulty does the patient have: Turning over in bed 3 How much difficulty does the patient currently have: Sitting down and standing up from a chair witharms? 3 How much difficulty does the patient have: Moving from lying on back to sitting on the side of the bed? 3 How much difficulty does the patient have: Moving to and from a bed to a chair including wheelchair? 3 How much help does the patient currently need: Walk in hospital room? 3 How much help from another person does the patient currently need: Climbing 3-5 steps with a railing? 3 Total 6 Click Score (range 6-24) 18 Score Interpretation 41.05 Safe Environment End of Therapy Session Safe Environment End of Therapy Session Patient left in chair;Chair alarm in place and activated;Call light within reach;Overbed table within reach Assessment Prognosis Good Problem List Gait deviations;Decreased strength;Decreased endurance;Impaired balance;Decreased mobility;Orthopedic restrictions Barriers to Discharge None Plan Plan Discharge;If this is the last note, consider this the discharge summary Recommendation/Plan PT Recommendation/Plan Home with family;Home with 24 hour supervision PT Frequency during current admission Discharge from this Service PT Equipment Recommended None (Patient has a wheeled walker.) Progress during current admission Discontinue PT PT - OK to Discharge Yes Multi-Disciplinary Problems (from Physical Therapy) Active Problems Problem: PT Misc Start Date: 10/17/23 Goal Start Date Expected End Date End Date PT LTG - Misc 1 10/17/23 12/05/23 -- Goal Details: Pt to be modified independent with all mobility to allow return to PLOF Problem: Transfers Start Date: 10/28/23 Goal Start Date Expected End Date End Date STG - Patient to transfer to and from sit to supine 10/28/23 11/04/23 -- Goal Details: SPV via logroll - ADEQUATE FOR DISCHARGE MILL OPERATOR * Nasir Manzanares MD - 10/30/2023 6:38 AM CST Orthopaedic Spine Service Daily Progress Note Admit Date: 10/12/2023 Hospital Day: 17 [place] Dx: L4-L5 Radiculopathy, PMH: UTI, HTN, prostate CA s/p prostatectomy (~2010), GERD, obesity, melanoma (2008), CKD Proc: FUSION SPINAL - POSTERIOR LUMBAR/THORACIC WITH INSTRUMENTATION: L4-5 open posterior spinal fusion with instrumentation, L4-5 transforaminal lumbar interbody fusion, L4-5 direct decompression, spinal cord monitoring, autograft, allograft LAMINECTOMY LUMBAR - POSTERIOR SPINAL CORD MONITORING Exam: Sensation is intact to light touch throughout bilateral lower extremities. Right lower extremity: 5/5 strength iliopsoas, quadriceps, gastrocsoleus, tibialis anterior, EHL. Left lower extremity: 4-/5 strength iliopsoas; 2/5 strength quadriceps; 5/5 strength gastrocsoleus,4/5 tibialis anterior/EHL. : 1950 Admit: 10/12/2023 Interval History Mildly hypertensive with systolic BP 150-160. O/w AFVSS. Hgb 9.4 (9.5). WBC 7.2 (5.4). Exam LLE 5/5GSC, 4/5 H/TA/EHL, 2/5 Q, 4-/5 IP, SILT throughout. Plan: Restarted home BP pends, Dispo pending home with setup [facility] today Objective Vitals: 24hr Min/Max: Temp Min: 36.9 ??C (98.4 ??F) Max: 37.1 ??C (98.7 ??F) Pulse Min: 81 Max: 85 BP Min: 151/84 Max: 165/84 Resp Min: 16 Max: 18 SpO2 Min: 96 % Max: 100 % I/O last 2 completed shifts: In: 550 [P.O.:550] Out: 940 [Urine:925; Drains:15] I/O this shift: In: 900 [P.O.:900] Out: 1000 [Urine:1000] Physical Exam: Gen: no acute distress Neuro: A&Ox3 Dressing: clean/dry/intact Wound Vac(s): Not applicable Hemo Vac(s): N/a Motor: Muscle Strength Right Left Iliopsoas (L2/3) 5/5 4-/5 Quadriceps (L3/4) 5/5 2/5 Tibialis anterior (L4/5) 5/5 4/5 Extensor hallicus longus (L5) 5/5 4/5 Gastrocsoleus complex (S1) 5/5 5/5 Sensation Left upper extremity: SILT C5 to T1 dermatomes. Right upper extremity: SILT C5 to T1 dermatomes. Left lower extremity: SILT L2 to S1 dermatomes. Right lower extremity: SILT L2 to S1 dermatomes. Vascular: Bilateral Upper Extremity: 2+ radial pulse, fingers WWP Bilateral Lower Extremity: 2+ DP pulse, toes WWP Lab/Diagnostic Review: Recent Labs Lab Units 10/29/23 2153 10/26/23200610/26/23 1728 10/23/23 2303 10/23/23 2302 SODIUM mmol/L 137 < > -- < > 137 POTASSIUM PLASMA mmol/L 3.7 < > -- < > 4.1 CHLORIDE mmol/L 103 < > -- < > 102 CO2 mmol/L 24 < > -- < > 23 ANIONGAP mmol/L 10 < > -- < > 12 GLUCOSE mg/dL 108 < > -- < > 245* POC GLUCOSE MONITOR -- -- -- < > -- BUN SERUM mg/dL 10 < > -- < > 12 CREATININE mg/dL 0.95 < > 0.91 < > 1.07 CALCIUM mg/dL 8.1* < > -- < > 8.3* ALBUMIN g/dL -- -- -- -- 2.6* ALK PHOS Units/L -- -- -- -- 91 ALT Units/L -- -- -- -- 88* AST Units/L -- -- -- -- 83* BILIRUBIN TOTAL mg/dL -- -- -- -- 0.6 WBC K/cumm 7.2 < > 9.1 < > -- HEMOGLOBIN g/dL 9.4* < > 9.6* < > -- HEMATOCRIT % 28.0* < > 28.3* < > -- PLATELETS K/cumm 313 < > 321 < > -- NEUTROS PCT % 68.7 < > -- < > -- LYMPHS PCT % 18.3 < > -- < > -- MONOS PCT % 9.7 < > -- < > -- EOS PCT % 2.2 < > -- < > -- APTT sec -- -- 64* < > 25* INR -- -- 1.16 < > 1.22* < > = values in this interval [...] For susceptibility results, refer to accession number [id number] on the urine culture from 10/11/23 MICROBIOLOGY (.) 10/11/2023 Final Report: Greater than or equal to 100,000 colonies/mL of Escherichia coli Greater than or equal to 100,000 colonies/mL of Escherichia coli #2 MICROBIOLOGY 03/15/2023 Final Report: Less than 100,000 colonies/mL (clinically insignificant growth based on current clinical standards) MICROBIOLOGY Final Report: No growth 09/24/2019 Assessement: Hira Evans is a 73 y.o. male s/p L4-5 open posterior spinal fusion with instrumentation, L4-5 transforaminal lumbar interbody fusion, L4-5 direct decompression. His immediate psot-op course was complicated by seizure and acute PE. Plan: - Lovenox for therapeutic AC in the setting of bilateral PEs. Will remain on AC for 3-6 months. Will need to follow up outpatinet with PCP regarding PEs. Medicine c/s s/o - Repeat hCT stable - will follow up with [facility] outpatient in 4 weeks with repeat scan at that time - Brain MRI completed - Neurology s/o, rec continued Keppra 1000mg BID until follow up - Does not need lumbar brace; maintain lumbar spine precautions - PT/OT - Dispo: home with Nasir Manzanares M.D. Department of Orthopaedic Surgery, PGY-3 [facility] in [place] [facility] Please use [email or web address] to page/call the appropriate Orthopaedic Surgery Team/Resident if questions or concerns Please call with questions during daytime. See below for overnight issues. If you know the resident's name on the appropriate orthopaedic surgery team, please use [email or web address] to page resident directly. If questions arise and the appropriate resident can't be reached or you are calling overnight, please contact [phone] ([place]- 7:30 PM - 6:30 AM - Floor Resident) or [phone] (24 hours/day - Consult Resident) Cosigned by Hayder Vu MD at 11/06/2023 6:43 PM HOB MILL OPERATOR MILL OPERATOR MILL OPERATOR * Nasir Manzanares MD - 10/29/2023 1:32 PM CST Brief Ortho Progress Note: I did not personally visualize the drain tip after it was inadvertantly removed last night. However, per report from overnight cashier, the drain tip looked good and entire drain was removed. Nasir Manzanares MD Orthopaedic Surgery PGY2 MILL OPERATOR MILL OPERATOR * Artie Real MD PhD - 10/29/2023 7:20 AM CST Neurosurgery Daily Progress Note 10/29/2023 Hospital Course 10/28 Consulted for BL SDH. Rpt head CT stable. Subjective no complaints and pain well controlled Objective Physical Exam Alert, opens eyes spontaneously, regards, follows all commands, orientedx3 Speech is fluent. Answers questions appropriately. PERRL, EOMI, face symmetric, TML Upper Extremity D B T HG HI L 5/5 5/5 5/5 5/5 5/5 R 5/5 5/5 5/5 5/5 5/5 Lower Extremity IP Q H TA Gn EHL L 4/5 2/5 4+/5 4+/5 4+/5 4+/5 R 5/5 5/5 5/5 5/5 5/5 5/5 No pronator drift. Sensation intact to light touch in BUE, BLE Vitals 24hr min/max vitals: Temp Min: 36.4 ??C (97.6 ??F) Max: 37 ??C (98.6 ??F) Pulse Min: 78 Max: 91 Resp Min: 16 Max: 17 SpO2 Min: 96 % Max: 100 % MAP (mmHg) Min: 78 Max: 107 Intake and Output I/O last 2 completed shifts: In: 1305 [P.O.:790; IV Piggyback:515] Out: 2685 [Urine:2650; Drains:35] Medications Scheduled Scheduled Medications Medication Dose Route Frequency ceFAZolin (ANCEF) 100 mg/mL sterile water 2,000 mg 2,000 mg intravenous Q8H CAMMY enoxaparin (LOVENOX) syringe 80 mg 1 mg/kg subcutaneous Q12H CAMMY gabapentin (NEURONTIN) capsule 300 mg 300 mg oral Q8H CAMMY levETIRAcetam (KEPPRA) tablet 1,000 mg 1,000 mg oral BID lidocaine (LIDODERM) 5 % patch 2 patch 2 patch transdermal Daily pantoprazole DR (PROTONIX) extended release tablet 40 mg 40 mg oral Daily polyethylene glycol (MIRALAX) packet 17 g 17 g oral BID senna-docusate (PERICOLACE) 8.6-50 mg per tablet 2 tablet 2 tablet oral BID sodium chloride 0.9% flush 0.5-20 mL 0.5-20 mL intra-catheter Q8H CAMMY sodium chloride 0.9% flush 0.5-20 mL 0.5-20 mL intra-catheter Q8H CAMMY tamsulosin (FLOMAX) extended release capsule 0.8 mg 0.8 mg oral Daily with dinner vancomycin 1500 mg/515 mL in sodium chloride 0.9% (premix) 1,500 mg 1,500 mg intravenous Q12H As needed PRN Medications Medication Dose Route Frequency Last Admin cyclobenzaprine (FLEXERIL) tablet 5 mg 5 mg oral TID PRN 5 mg at 10/29/23 0449 diphenhydrAMINE (BENADRYL) tab/cap 25 mg 25 mg oral QID PRN 25 mg at 10/28/23 0920 diphenhydrAMINE-zinc acetate 2-0.1 % cream topical Daily PRN Given at 10/27/232114 hydrocortisone 2.5 % cream topical BID PRN HYDROmorphone (DILAUDID) injection 0.5 mg 0.5 mg intravenous Q2H PRN 0.5 mg at 10/26/231834 ondansetron (ZOFRAN) injection 4 mg 4 mg intravenous Q6H PRN oxyCODONE (ROXICODONE) tablet 10 mg 10 mg oral Q4H PRN 10 mg at 10/27/232109 ramelteon (ROZEREM) tablet 8 mg 8 mg oral Nightly PRN 8 mg at 10/28/232130 sodium chloride 0.9% flush 0.5-20 mL 0.5-20 mL intra-catheter PRN Labs Lab Results Component Value Date SODIUM 139 10/29/2023 SODIUM 135 10/27/2023 SODIUM 137 10/26/2023 Lab Results Component Value Date GLUCOSE 112 10/29/2023 CALCIUM 8.2 (L) 10/29/2023 POTASSIUM 3.5 10/29/2023 CO2 23 10/29/2023 CHLORIDE 104 10/29/2023 BUNSER 11 10/29/2023 CREATININE 0.88 10/29/2023 Lab Results Component Value Date WBC 5.4 10/29/2023 WBC 6.0 10/27/2023 WBC 7.1 10/27/2023 HGB 9.5 (L) 10/29/2023 HGB 8.6 (L) 10/27/2023 HGB 9.1 (L) 10/27/2023 HCT 27.9 (L) 10/29/2023 HCT 25.3 (L) 10/27/2023 HCT 26.1 (L) 10/27/2023 LABPLAT 295 10/29/2023 LABPLAT 295 10/27/2023 LABPLAT 291 10/27/2023 Lab Results Component Value Date INR 1.16 10/26/2023 INR 1.21 (H) 10/24/2023 INR 1.20 10/24/2023 PT 13.2 10/26/2023 PT 13.8 (H) 10/24/2023 PT 13.7 10/24/2023 APTT 64 (H) 10/26/2023 APTT 74 (H) 10/26/2023 APTT 58 (H) 10/26/2023 No components found for: TROPONIN PT/OT Evaluation PT Recommendation/Plan: Home with family, Home with 24 hour supervision, Home Health PT OT Recommendation: Home with family, Home with 24 hour supervision, Home Health OT Assessment/Plan Hospital Day: 18 Mr. Evans is a 73-year-old male with past medical history of HTN, GERD, CKD, melanoma, prostate cancer status post prostatectomy, who recently underwent ureteral stent placement on 10/18 and L4-5 posterior spinal fusion on 10/23, who suffered a generalized tonic-clonic seizure and cardiac arrest after his spine procedure, found to have bilateral distal R and L main pulmonary artery PEs on 10/23who was started on therapeutic anticoagulation at that time, found to have thin bilateral frontal SDHs. Plan Q4H NC OK for SQH for DVT prophylaxis We will sign off at this time. We have tasked follow-up in our clinic for 4 weeks from now with a non-contrast head CT. Responsible Team Darrian Bone ([phone]) Artie Real ([phone]) Hira Segura (Chief) For any questions or concerns, please contact the nurse practitioner signed in to the chart. If youare unable to reach them, you may contact the residents as listed. If it is after 6pm or you are unable to reach the CROWN CERAMIST or resident team, please page the Neurosurgery Call Pager at [phone]. Note created by Artie Real MD PhD on 10/29/2023 at 7:20 AM. Cosigned by Gen Murray MD at 10/29/2023 4:52 PM HOB MILL OPERATOR MILL OPERATOR MILL OPERATOR * Nasir Manzanares MD - 10/29/2023 7:18 AM CST Orthopaedic Spine Service Daily Progress Note Admit Date: 10/12/2023 Hospital Day: 16 [facility] Dx: L4-L5 Radiculopathy, PMH: UTI, HTN, prostate CA s/p prostatectomy (~2010), GERD, obesity, melanoma (2007), CKD Proc: FUSION SPINAL - POSTERIOR LUMBAR/THORACIC WITH INSTRUMENTATION: L4-5 open posterior spinal fusion with instrumentation, L4-5 transforaminal lumbar interbody fusion, L4-5 direct decompression, spinal cord monitoring, autograft, allograft LAMINECTOMY LUMBAR - POSTERIOR SPINAL CORD MONITORING Exam: Sensation is intact to light touch throughout bilateral lower extremities. Right lower extremity: 5/5 strength iliopsoas, quadriceps, gastrocsoleus, tibialis anterior, EHL. Left lower extremity: 4-/5 strength iliopsoas; 3/5 strength quadriceps; 4+/5 strength gastrocsoleus, tibialis anterior, EHL. : 1950 Admit: 10/12/2023 Interval AFVSS. Drain was accidentally removed yesterday evening while patient was transferring from the toilet. Hgb 9.5 (8.6). WBC 5.4 (6.0) . Ambulated 80 ft with PT yesterday, recommending home w/ HH. NSYGrec repeat head CT for the subdurals and scan demonstrated no significant chant in size. NSYG will see in clinic in 4 weeks. Exam: Dressing c/d/I. Motor exam is stable. Plan continue PT/OT, arrange HH. Will touch base with urology regarding follow up as patient gets closer to d/c Objective Vitals: 24hr Min/Max: Temp Min: 36.4 ??C (97.6 ??F) Max: 37 ??C (98.6 ??F) Pulse Min: 78 Max: 91 BP Min: 133/71 Max: 158/85 Resp Min: 16 Max: 17 SpO2 Min: 96 % Max: 100 % I/O last 2 completed shifts: In: 1305 [P.O.:790; IV Piggyback:515] Out: 2685 [Urine:2650; Drains:35] No intake/output data recorded. Physical Exam: Gen: no acute distress Neuro: A&Ox3 Dressing: clean/dry/intact Wound Vac(s): Not applicable Hemo Vac(s): Holding suction nicely, no apparent leaks Motor: Muscle Strength Right Left Iliopsoas (L2/3) 5/5 4-/5 Quadriceps (L3/4) 5/5 3/5 Tibialis anterior (L4/5) 5/5 4+/5 Extensor hallicus longus (L5) 5/5 4+/5 Gastrocsoleus complex (S1) 5/5 4+/5 Sensation Left upper extremity: SILT C5 to T1 dermatomes. Right upper extremity: SILT C5 to T1 dermatomes. Left lower extremity: SILT L2 to S1 dermatomes. Right lower extremity: SILT L2 to S1 dermatomes. Vascular: Bilateral Upper Extremity: 2+ radial pulse, fingers WWP Bilateral Lower Extremity: 2+ DP pulse, toes WWP Lab/Diagnostic Review: Recent Labs Lab Units 10/29/23 0440 10/26/23200610/26/23 1728 10/23/23 2303 10/23/23 2302 SODIUM mmol/L 139 < > -- < > 137 POTASSIUM PLASMA mmol/L 3.5 < > -- < > 4.1 CHLORIDE mmol/L 104 < > -- < > 102 CO2 mmol/L 23 < > -- < > 23 ANIONGAP mmol/L 12 < > -- < > 12 GLUCOSE mg/dL 112 < > -- < > 245* POC GLUCOSE MONITOR -- -- -- < > -- BUN SERUM mg/dL 11 < > -- < > 12 CREATININE mg/dL 0.88 < > 0.91 < > 1.07 CALCIUM mg/dL 8.2* < > -- < > 8.3* ALBUMIN g/dL -- -- -- -- 2.6* ALK PHOS Units/L -- -- -- -- 91 ALT Units/L -- -- -- -- 88* AST Units/L -- -- -- -- 83* BILIRUBIN TOTAL mg/dL -- -- -- -- 0.6 WBC K/cumm 5.4 < > 9.1 < > -- HEMOGLOBIN g/dL 9.5* < > 9.6* < > -- HEMATOCRIT % 27.9* < > 28.3* < > -- PLATELETS K/cumm 295 < > 321 < > -- NEUTROS PCT % 66.1 < > -- < > -- LYMPHS PCT % 18.9 < > -- < > -- MONOS PCT % 10.4 < > -- < > -- EOS PCT % 3.1 < > -- < > -- APTT sec -- -- 64* < > 25* INR -- -- 1.16 < > 1.22* < > = values in this interval [...] For susceptibility results, refer to accession number [id number] on the urine culture from 10/11/23 MICROBIOLOGY (.) 10/11/2023 Final Report: Greater than or equal to 100,000 colonies/mL of Escherichia coli Greater than or equal to 100,000 colonies/mL of Escherichia coli #2 MICROBIOLOGY 03/15/2023 Final Report: Less than 100,000 colonies/mL (clinically insignificant growth based on current clinical standards) MICROBIOLOGY Final Report: No growth 09/24/2019 Assessement: Hira Evans is a 73 y.o. male s/p L4-5 open posterior spinal fusion with instrumentation, L4-5 transforaminal lumbar interbody fusion, L4-5 direct decompression. His immediate psot-op course was complicated by seizure and acute PE. Plan: - Lovenox for therapeutic AC in the setting of bilateral PEs. Will remain on AC for 3-6 months. Will need to follow up outpatinet with PCP regarding PEs. Medicine c/s s/o - Repeat hCT stable - will follow up with NSYG outpatient in 4 weeks with repeat scan at that time - Brain MRI completed - Neurology s/o, rec continued Keppra 1000mg BID until follow up - Does not need lumbar brace; maintain lumbar spine precautions - PT/OT - Dispo: home with Nasir Manzanares M.D. Department of Orthopaedic Surgery, PGY-3 [facility] Please use Melon to page/call the appropriate Orthopaedic Surgery Team/Resident if questions or concerns Please call with questions during daytime. See below for overnight issues. If you know the resident's name on the appropriate orthopaedic surgery team, please use Melon to page resident directly. If questions arise and the appropriate resident can't be reached or you are calling overnight, please contact [phone] ([facility] 7:30 PM - 6:30 AM - Floor Resident) or [phone] (24 hours/day - Consult Resident) Cosigned by Hayder Vu MD at 11/06/2023 6:43 PM HOB MILL OPERATOR MILL OPERATOR MILL OPERATOR * Shane Bowen OT - 10/28/2023 11:09 AM CST Occupational Therapy Occupational Therapy Progress [...] not assigned to this patient, please call [phone]. 10/28/23 6925 General Session Type Treatment OT Received On 10/28/23 Safe Environment Arm band checked;Patient found in supine;Gait belt utilized for all out of bed mobility Subjective Agreeable to Therapy Family/Caregiver Present No Precautions Precautions Fall risk;Spinal/Back Precaution Handout Issued No Precaution Comments Verbally reviewed precautions prior to mobility Pain Assessment Pain Assessment No/denies pain Balance Balance Yes Dynamic Sitting Balance Dynamic Sitting-Balance Support No upper extremity supported Dynamic Sitting-Balance Forward lean;Lateral lean;Reaching across midline;Reaching for objects;Reaching for weighted objects Dynamic Sitting-Sitting Surface Chair Dynamic Sitting-Level of Assistance Independent Dynamic Standing Balance Dynamic Standing-Balance Support No upper extremity supported Dynamic Standing-Balance Lateral lean;Forward lean;Reaching for objects;Reaching across midline Dynamic Standing-Standing Surface Floor Dynamic Standing-Level of Assistance Distant supervision Dynamic Standing-Comments Sup for safety ADL ADLS (WDL) X Grooming Grooming: Where assessed Standing at sink Grooming: Level of assistance Distant Supervision Grooming: Assistance with Increased time to complete;Standing with assistive device (Sup for safety) LE Dressing LE Dressing: Where assessed Standing;Sitting LE Dressing: Level of assistance Distant Supervision LE Dressing: Assistance with Supervision/safety (Sup for safety) Toileting Toileting: Where assessed Toilet Toileting: Level of assistance Distant Supervision Toileting: Assistance with Posterior (Sup) Bed Mobility Bed Mobility Yes Bed Mobility 1 Bed Mobility From 1 Supine Bed Mobility Type 1 To Bed Mobility to 1 Edge of bed Level of Assistance 1 Distant Supervision Bed Mobility Comments 1 Sup for safety cues Transfers Transfer Yes Transfer 1 Transfer From 1 Sit Transfer Type 1 To and from Transfer to 1 Stand Technique 1 Sit to stand;Stand to sit Transfer Device 1 Wheeled walker Transfer Level of Assistance 1 Distant supervision Trials/Comments 1 Sup for safety Toilet Transfers Toilet Transfer From Bed Toilet Transfer Type To and from Toilet Transfer to Standard toilet Toilet Transfer Technique Ambulating Toilet Transfer: Equipment Wheeled walker Toilet Transfers Supervision Toilet Transfers Comments Sup for safety Cognition Overall Cognitive Status WFL Arousal/Alertness Alert;Appropriate responses to stimuli Attention Span [...] Perseveration Not present Other Comments Comments Pt requires no further skilled acute care OT services and is safe for discharge home with family and intermittent assist. Daily Activity - 6 Clicks Putting on and taking off regular lower body clothing 3 Bathing 3 Toileting 3 Putting on and taking off upper body clothing 3 Personal Grooming 3 Eating Meals 3 Total Score (range 6-24) 18 Score Interpretation 38.66 Safe Environment End of Therapy Session Safe Environment End of Therapy Session Patient left in chair;Chair alarm in place and activated;RNnotified;Call light within reach;Overbed table within reach Assessment Problem List Decreased endurance;Decreased upper extremity strength;Decreased balance;Decreased fine motor control;Decreased functional mobility;Decreased gross motor control;Decreased ADL independence;Decreased IADL independence Barriers to Discharge Current Mobility Status;Current ADL Status Plan Plan Discharge;If this is the last note, consider this the discharge summary Recommendation/Plan OT Recommendation Home with family;Home with 24 hour supervision;Home Health OT OT Frequency during current admission Discharge from this Service Treatment/Interventions during current admission ADL/IADL retraining;Balance Training;Bed mobility;Endurance training;Functional activity;Functional mobility training;Functional transfer training OT Equipment Recommended Wheeled walker Progress during current admission Discontinue OT OT - OK to Discharge No MILL OPERATOR * Carey Heni, PT - 10/28/2023 10:00 AM CST Physical Therapy Physical Therapy Progress [...] treatment team and contact the PT or PREMIUM NOTE INTEREST CALCULATOR CLERK currently assigned to this patient. If a physical therapy clinician is not assigned to this patient, please call [phone]. 10/28/23 1000 PT Last Visit Session Type Treatment PT Received On 10/28/23 Safe Environment Arm band checked;Patient found in supine;Gait belt utilized for all out of bed mobility Subjective Agreeable to Therapy Family/Caregiver Present Yes Precautions Precautions Fall risk;Spinal/Back;KYLE Precaution Handout Issued No Precaution Comments Verbally reviewed precautions with patient prior to mobility Activity Tolerance Activity Tolerance Comments Bryson: moderate Pain Assessment Pain Assessment 0-10 Pain Score 5 - Moderate pain Pain Location Back (Lumbar) Pain Orientation Generalized Pain Interventions Repositioned;RN Notified Cognition Arousal/Alertness Alert;Appropriate responses to stimuli Orientation Oriented X4 (person, place, time, situation) Following Commands Follows all commands and directions without difficulty Safety Judgment Good awareness of safety precautions Compliance/Behavior Easy to engage Balance Balance Yes Static Sitting Balance Static Sitting-Balance Support No upper extremity supported;Feet supported Static Sitting-Sitting Surface Chair Static Sitting-Level of Assistance Distant supervision Static Sitting-Comment/# of Minutes safety Dynamic Sitting Balance Dynamic Sitting-Balance Support No upper extremity supported;Feet supported Dynamic Sitting-Balance Lateral lean;Forward lean;Reaching for objects Dynamic Sitting-Sitting Surface Chair Dynamic Sitting-Level of Assistance Distant supervision Dynamic Sitting-Comments safety Static Standing Balance Static Standing-Balance Support Bilateral upper extremity supported (WW) Static Standing-Standing Surface Floor Static Standing-Level of Assistance Contact guard Static Standing-Comment/# of Minutes safety Dynamic Standing Balance Dynamic Standing-Balance Support Bilateral upper extremity supported (WW) Dynamic Standing-Balance Lateral lean;Forward lean Dynamic Standing-Standing Surface Floor Dynamic Standing-Level of Assistance Contact guard Dynamic Standing-Comments safety Bed Mobility Bed Mobility Yes Bed Mobility 1 Bed Mobility From 1 Edge of bed Bed Mobility Type 1 To Bed Mobility to 1 Supine Level of Assistance 1 Minimum Assist Bed Mobility Comments 1 assist for LE management Transfers Transfer Yes Transfer 1 Transfer From 1 Sit Transfer Type 1 To and from Transfer to 1 Stand Technique 1 Sit to stand;Stand to sit Transfer Device 1 Wheeled walker Transfer Level of Assistance 1 Standby Assist Trials/Comments 1 safety Transfers 2 Transfer From 2 Chair with arms Transfer Type 2 To Transfer to 2 Toilet Technique 2 Ambulation Transfer Device 2 Wheeled walker Transfer Level of Assistance 2 Standby Assist Trials/Comments 2 safety Ambulation Ambulation Yes Ambulation 1 Distance (ft) 1 80 Surface 1 Level tile Device 1 Wheeled walker Assistance 1 Standby Assist Gait: Requires verbal cues to 1 Use assistive device safely;Improve upright posture;Pace activity Gait Deviations 1 Phyllis - decreased;Posture - flexed;Step length - decreased Stairs Stairs Yes Stairs Number of Stairs 1 3 Rails 1 Right Device 1 No device Assistance 1 Standby Assist Basic Mobility - 6 Click How much difficulty does the patient have: Turning over in bed 3 How much difficulty does the patient currently have: Sitting down and standing up from a chair witharms? 3 How much difficulty does the patient have: Moving from lying on back to sitting on the side of the bed? 3 How much difficulty does the patient have: Moving to and from a bed to a chair including wheelchair? 3 How much help does the patient currently need: Walk in hospital room? 3 How much help from another person does the patient currently need: Climbing 3-5 steps with a railing? 3 Total 6 Click Score (range 6-24) 18 Score Interpretation 41.05 Safe Environment End of Therapy Session Safe Environment End of Therapy Session Patient left supine in bed;RN notified;Call light within reach;Overbed table within reach Assessment Prognosis Good Problem List Gait deviations;Decreased strength;Decreased endurance;Impaired balance;Decreased mobility Barriers to Discharge None Plan Plan Alter current plan;If this is the last note, consider this the discharge summary Recommendation/Plan PT Recommendation/Plan Home with family;Home with 24 hour supervision;Home Health PT Patient at high risk for Falls;Readmission;Injury due to reduced functional status PT Recommendation/Plan Comments Patient and family in agreement with current dispo PT Frequency during current admission 5-7x/wk Treatment/Interventions during current admission Balance Training;Bed mobility;Endurance training;Equipment eval/education;Functional activity;Functional transfer training;Gait training;Neuromuscularre- education;Positioning;Range of motion;Stair training;Strengthening;Therapeutic activity;Therapeutic exercise;Transfer training PT Equipment Recommended Wheeled walker Progress during current admission Progressing toward goals PT - Next Appointment 10/29/23 PT - OK to Discharge Yes Multi-Disciplinary Problems (from Physical Therapy) Active Problems Problem: PT Misc Start Date: 10/17/23 Goal Start Date Expected End Date End Date PT LTG - Misc 1 10/17/23 12/05/23 -- Goal Details: Pt to be modified independent with all mobility to allow return to PLOF Problem: Mobility Start Date: 10/28/23 Goal Start Date Expected End Date End Date STG - Patient will ambulate 10/28/23 11/04/23 -- Goal Details: 50 feet SPV with WW Goal Start Date Expected End Date End Date STG - Patient will ascend and descend 3 stairs with the following level of assist: 10/28/23 11/04/23 -- Goal Details: SBA Problem: Transfers Start Date: 10/28/23 Goal Start Date Expected End Date End Date STG - Patient to transfer to and from sit to supine 10/28/23 11/04/23 -- Goal Details: SPV via logroll Goal Start Date Expected End Date End Date STG - Patient will transfer sit to and from stand 10/28/23 11/04/23 -- Goal Details: SPV with WW MILL OPERATOR * Nasir Manzanares MD - 10/28/2023 8:32 AM CST Orthopaedic Spine Service Daily Progress Note Admit Date: 10/12/2023 Hospital Day: 15 [facility] Dx: L4-L5 Radiculopathy, PMH: UTI, HTN, prostate CA s/p prostatectomy (~2010), GERD, obesity, melanoma (2007), CKD Proc: FUSION SPINAL - POSTERIOR LUMBAR/THORACIC WITH INSTRUMENTATION: L4-5 open posterior spinal fusion with instrumentation, L4-5 transforaminal lumbar interbody fusion, L4-5 direct decompression, spinal cord monitoring, autograft, allograft LAMINECTOMY LUMBAR - POSTERIOR SPINAL CORD MONITORING Exam: Sensation is intact to light touch throughout bilateral lower extremities. Right lower extremity: 5/5 strength iliopsoas, quadriceps, gastrocsoleus, tibialis anterior, EHL. Left lower extremity: 4-/5 strength iliopsoas; 3/5 strength quadriceps; 4+/5 strength gastrocsoleus, tibialis anterior, EHL. : 1950 Admit: 10/12/2023 Interval AFVSS. NAEO. WBC 6.0. Hgb 8.6 (9.1). Drain . Rash/itchiness improved with PO benadryl. Exam dressing changed and incision c/d/i. Plan PT/OT. Maintain drain Objective Vitals: 24hr Min/Max: Temp Min: 36.4 ??C (97.6 ??F) Max: 36.8 ??C (98.2 ??F) Pulse Min: 80 Max: 96 BP Min: 142/85 Max: 157/94 Resp Min: 16 Max: 18 SpO2 Min: 95 % Max: 100 % I/O last 2 completed shifts: In: 200 [P.O.:200] Out: 2505 [Urine:2450; Drains:55] No intake/output data recorded. Physical Exam: Gen: no acute distress Neuro: A&Ox3 Dressing: clean/dry/intact Wound Vac(s): Not applicable Hemo Vac(s): Holding suction nicely, no apparent leaks Motor: Muscle Strength Right Left Iliopsoas (L2/3) 5/5 4-/5 Quadriceps (L3/4) 5/5 3/5 Tibialis anterior (L4/5) 5/5 4+/5 Extensor hallicus longus (L5) 5/5 4+/5 Gastrocsoleus complex (S1) 5/5 4+/5 Sensation Left upper extremity: SILT C5 to T1 dermatomes. Right upper extremity: SILT C5 to T1 dermatomes. Left lower extremity: SILT L2 to S1 dermatomes. Right lower extremity: SILT L2 to S1 dermatomes. Vascular: Bilateral Upper Extremity: 2+ radial pulse, fingers WWP Bilateral Lower Extremity: 2+ DP pulse, toes WWP Lab/Diagnostic Review: Recent Labs Lab Units 10/27/23 2332 10/26/23200610/26/23 1728 10/23/23 2303 10/23/23 230 SODIUM mmol/L 135 < > -- < > 137 POTASSIUM PLASMA mmol/L 3.7 < > -- < > 4.1 CHLORIDE mmol/L 103 < > -- < > 102 CO2 mmol/L 26 < > -- < > 23 ANIONGAP mmol/L 6 < > -- < > 12 GLUCOSE mg/dL 108 < > -- < > 245* POC GLUCOSE MONITOR -- -- -- < > -- BUN SERUM mg/dL 11 < > -- < > 12 CREATININE mg/dL 0.88 < > 0.91 < > 1.07 CALCIUM mg/dL 8.0* < > -- < > 8.3* ALBUMIN g/dL -- -- -- -- 2.6* ALK PHOS Units/L -- -- -- -- 91 ALT Units/L -- -- -- -- 88* AST Units/L -- -- -- -- 83* BILIRUBIN TOTAL mg/dL -- -- -- -- 0.6 WBC K/cumm 6.0 < > 9.1 < > -- HEMOGLOBIN g/dL 8.6* < > 9.6* < > -- HEMATOCRIT % 25.3* < > 28.3* < > -- PLATELETS K/cumm 295 < > 321 < > -- NEUTROS PCT % 65.9 < > -- < > -- LYMPHS PCT % 20.3 < > -- < > -- MONOS PCT % 9.6 < > -- < > -- EOS PCT % 3.2 < > -- < > -- APTT sec -- -- 64* < > 25* INR -- -- 1.16 < > 1.22* < > = values in this interval [...] For susceptibility results, refer to accession number [id number] on the urine culture from 10/11/23 MICROBIOLOGY (.) 10/11/2023 Final Report: Greater than or equal to 100,000 colonies/mL of Escherichia coli Greater than or equal to 100,000 colonies/mL of Escherichia coli #2 MICROBIOLOGY 03/15/2023 Final Report: Less than 100,000 colonies/mL (clinically insignificant growth based on current clinical standards) MICROBIOLOGY Final Report: No growth 09/24/2019 Assessement: Hira Evans is a 73 y.o. male s/p L4-5 open posterior spinal fusion with instrumentation, L4-5 transforaminal lumbar interbody fusion, L4-5 direct decompression. His immediate psot-op course was complicated by seizure and acute PE. Plan: - Lovenox for therapeutic AC in the setting of bilateral PEs. Will remain on AC for 3-6 months. Will need to follow up outpatinet with PCP regarding PEs. Medicine c/s s/o - Maintain drain - Brain MRI completed - Neurology s/o, rec continued Keppra 1000mg BID until follow up - Does not need lumbar brace; maintain lumbar spine precautions - PT/OT Nasir Manzanares M.D. Department of Orthopaedic Surgery, PGY-3 [facility] [place]/[facility] Please use Melon to page/call the appropriate Orthopaedic Surgery Team/Resident if questions or concerns Please call with questions during daytime. See below for overnight issues. If you know the resident's name on the appropriate orthopaedic surgery team, please use [email or web address] to page resident directly. If questions arise and the appropriate resident can't be reached or you are calling overnight, please contact [phone] (Sun- 7:30 PM - 6:30 AM - Floor Resident) or [phone] (24 hours/day - Consult Resident) Cosigned by Hayder Vu MD at 11/06/2023 6:43 PM HOB MILL OPERATOR MILL OPERATOR MILL OPERATOR * Shane Bowen, OT - 10/27/2023 10:26 AM CST Occupational Therapy Occupational Therapy Progress [...] not assigned to this patient, please call [phone]. 10/27/23 1026 General Session Type Treatment OT Received On 10/27/23 Safe Environment Arm band checked;Patient found in supine;Gait belt utilized for all out of bed mobility Subjective Agreeable to Therapy Family/Caregiver Present No Precautions Precautions Fall risk;Spinal/Back Precaution Handout Issued No Precaution Comments Verbally reviewed precautions prior to mobility and reviewed previously issued hand out Pain Assessment Pain Assessment No/denies pain Balance Balance Yes Dynamic Sitting Balance Dynamic Sitting-Balance Support No upper extremity supported Dynamic Sitting-Balance Lateral lean;Forward lean;Reaching for objects;Reaching for weighted objects;Reaching across midline Dynamic Sitting-Sitting Surface Bed Dynamic Sitting-Level of Assistance Distant supervision Dynamic Sitting-Comments Sup for safety Dynamic Standing Balance Dynamic Standing-Balance Support No upper extremity supported Dynamic Standing-Balance Lateral lean;Forward lean;Reaching for objects;Reaching across midline Dynamic Standing-Standing Surface Floor Dynamic Standing-Level of Assistance Contact guard Dynamic Standing-Comments CGA for balance and safety ADL ADLS (WDL) X Grooming Grooming: Where assessed Standing at sink Grooming: Level of assistance Contact Guard Assist Grooming: Assistance with Increased time to complete;Standing with assistive device (CGA for balance) LE Dressing LE Dressing: Where assessed Standing;Sitting LE Dressing: Level of assistance Minimum Assist LE Dressing: Assistance with Use of adaptive equipment;Don/doff R sock;Don/doff L sock (Min for task) LE Dressing: Equipment Utilized Sock aid;Dressing stick;Scrum Coach Toileting Toileting: Where assessed Toilet Toileting: Level of assistance Minimum Assist Toileting: Assistance with Posterior (Min for task) Bed Mobility Bed Mobility Yes Bed Mobility 1 Bed Mobility From 1 Supine Bed Mobility Type 1 To Bed Mobility to 1 Edge of bed Level of Assistance 1 Minimum Assist Bed Mobility Comments 1 Min A for trunk elevation Transfers Transfer Yes Transfer 1 Transfer From 1 Sit Transfer Type 1 To and from Transfer to 1 Stand Technique 1 Sit to stand;Stand to sit Transfer Device 1 Wheeled walker Transfer Level of Assistance 1 Contact Guard Assist Trials/Comments 1 CGA for balance Toilet Transfers Toilet Transfer From Bed Toilet Transfer Type To and from Toilet Transfer to Standard toilet Toilet Transfer Technique Ambulating Toilet Transfer: Equipment Wheeled walker Toilet Transfers Contact guard Toilet Transfers Comments CGA for balance and safety Cognition Overall Cognitive Status WFL Arousal/Alertness Alert;Appropriate responses to stimuli Attention Span [...] Perseveration Not present Other Comments Comments Pt was able to complete ADLs with CGA-Min A and reported feeling much better while moving . Pt would benefit from continued skilled therapy services to improve ADL ind, strength, and endurance. Daily Activity - 6 Clicks Putting on and taking off regular lower body clothing 3 Bathing 3 Toileting 3 Putting on and taking off upper body clothing 3 Personal Grooming 3 Eating Meals 3 Total Score (range 6-24) 18 Score Interpretation 38.66 Safe Environment End of Therapy Session Safe Environment End of Therapy Session Patient left in chair;RN notified;Call light within reach;Overbed table within reach Assessment Problem List Decreased cognition;Decreased endurance;Decreased upper extremity strength;Decreased balance;Decreased fine motor control;Decreased functional mobility;Decreased gross motor control;Decreased ADL independence;Decreased IADL independence Barriers to Discharge Current Mobility Status;Current ADL Status Plan Plan Continue with current plan;If this is the last note, consider this the discharge summary Recommendation/Plan OT Recommendation Home with family;Home with 24 hour supervision;Home Health OT Patient at high risk for Falls;Readmission;Injury due to decreased ability to care for self;Injury due to balance deficits Recommend Inpatient Rehab/Acute Rehab due to Highly motivated to participate in therapy;Ability to actively participate in intensive therapy 3 hours/day, 5 days/week or 900 minutes per week;Not at baseline due to impaired ability to complete ADLs;Impaired ability to complete functional mobility OT Frequency during current admission 5-7x/wk Treatment/Interventions during current admission ADL/IADL retraining;Balance Training;Bed mobility;Endurance training;Functional activity;Functional mobility training;Functional transfer training OT Equipment Recommended Wheeled walker Progress during current admission Progressing toward goals OT - Next Appointment 10/28/23 OT - OK to Discharge No Multi-Disciplinary Problems (from Occupational Therapy) Active Problems Problem: Dressings Lower Extremities Start Date: 10/25/23 Goal Start Date Expected End Date End Date STG - Patient to complete lower body dressing using adaptive strategies as appropriate with SPV. 10/25/23 11/08/23 -- Problem: Grooming Start Date: 10/25/23 Goal Start Date Expected End Date End Date STG - Patient will complete grooming standing at sink with SPV. 10/25/23 11/08/23 -- Problem: Toileting Start Date: 10/25/23 Goal Start Date Expected End Date End Date STG - Patient will complete toileting tasks with SPV. 10/25/23 11/08/23 -- Problem: Transfers Start Date: 10/25/23 Goal Start Date Expected End Date End Date STG - Patient will perform toilet transfer to and from bathroom with SPV. 10/25/23 11/08/23 -- Problem: OT Misc Start Date: 10/25/23 Goal Start Date Expected End Date End Date OT LTG - Patient will complete ADLs and functional mobility with modified independence. 10/25/23 11/22/23 -- Reviewed By Ana Hampton RN 10/26/23 0769 Nathen Maharaj RN 10/24/23 5885 MILL OPERATOR * Nasir Manzanares MD - 10/27/2023 8:02 AM CST Orthopaedic Spine Service Daily Progress Note Admit Date: 10/12/2023 Hospital Day: 14 [facility] Dx: L4-L5 Radiculopathy, PMH: UTI, HTN, prostate CA s/p prostatectomy (~2010), GERD, obesity, melanoma (2007), CKD Proc: FUSION SPINAL - POSTERIOR LUMBAR/THORACIC WITH INSTRUMENTATION: L4-5 open posterior spinal fusion with instrumentation, L4-5 transforaminal lumbar interbody fusion, L4-5 direct decompression, spinal cord monitoring, autograft, allograft LAMINECTOMY LUMBAR - POSTERIOR SPINAL CORD MONITORING Exam: Sensation is intact to light touch throughout bilateral lower extremities. Right lower extremity: 5/5 strength iliopsoas, quadriceps, gastrocsoleus, tibialis anterior, EHL. Left lower extremity: 4-/5 strength iliopsoas; 3/5 strength quadriceps; 4+/5 strength gastrocsoleus, tibialis anterior, EHL. : 1950 Admit: 10/12/2023 Interval AFVSS. NAEO. Hgb 9.1 (9.5). WBC 7.1 (8.6). Drain 40/105. Medicine c/s evaluated yesterday and recommend anticoagulation for 3-6 months. Transitioned from heparin ggt to lovenox yesterday. Medicine consult signed off. Continues to endorse improved sxs/pain in LLE. Worked on transfers w/ OT yesterday. Declined PT 2/2 fatigue. Exam unchanged. Plan: PT/OT, maintain drain Objective Vitals: 24hr Min/Max: Temp Min: 36.7 ??C (98 ??F) Max: 37.3 ??C (99.1 ??F) Pulse Min: 67 Max: 87 BP Min: 138/81 Max: 169/51 Resp Min: 16 Max: 18 SpO2 Min: 97 % Max: 98 % I/O last 2 completed shifts: In: 756.7 [Blood:756.7] Out: 1005 [Urine:900; Drains:105] No intake/output data recorded. Physical Exam: Gen: no acute distress Neuro: A&Ox3 Dressing: clean/dry/intact Wound Vac(s): Not applicable Hemo Vac(s): Holding suction nicely, no apparent leaks Motor: Muscle Strength Right Left Iliopsoas (L2/3) 5/5 4-/5 Quadriceps (L3/4) 5/5 3/5 Tibialis anterior (L4/5) 5/5 4+/5 Extensor hallicus longus (L5) 5/5 4+/5 Gastrocsoleus complex (S1) 5/5 4+/5 Sensation Left upper extremity: SILT C5 to T1 dermatomes. Right upper extremity: SILT C5 to T1 dermatomes. Left lower extremity: SILT L2 to S1 dermatomes. Right lower extremity: SILT L2 to S1 dermatomes. Vascular: Bilateral Upper Extremity: 2+ radial pulse, fingers WWP Bilateral Lower Extremity: 2+ DP pulse, toes WWP Lab/Diagnostic Review: Recent Labs Lab Units 10/27/23 0437 10/26/23200610/26/23 1728 10/23/23 2303 10/23/23 2302 SODIUM mmol/L -- 137 -- < > 137 POTASSIUM PLASMA mmol/L -- 3.5 -- < > 4.1 CHLORIDE mmol/L -- 104 -- < > 102 CO2 mmol/L -- 26 -- < > 23 ANIONGAP mmol/L -- 7 -- < > 12 GLUCOSE mg/dL -- 132 -- < > 245* POC GLUCOSE MONITOR -- -- -- < > -- BUN SERUM mg/dL -- 11 -- < > 12 CREATININE mg/dL -- 0.86 0.91 < > 1.07 CALCIUM mg/dL -- 8.2* -- < > 8.3* ALBUMIN g/dL -- -- -- -- 2.6* ALK PHOS Units/L -- -- -- -- 91 ALT Units/L -- -- -- -- 88* AST Units/L -- -- -- -- 83* BILIRUBIN TOTAL mg/dL -- -- -- -- 0.6 WBC K/cumm 7.1 8.6 9.1 < > -- HEMOGLOBIN g/dL 9.1* 9.5* 9.6* < > -- HEMATOCRIT % 26.1* 27.6* 28.3* < > -- PLATELETS K/cumm 291 313 321 < > -- NEUTROS PCT % -- 77.6 -- < > -- LYMPHS PCT % -- 12.5 -- < > -- MONOS PCT % -- 7.8 -- < > -- EOS PCT % -- 1.0 -- < > -- APTT sec -- -- 64* < > 25* INR -- -- 1.16 < > 1.22* < > = values in this interval [...] For susceptibility results, refer to accession number [id number] on the urine culture from 10/11/23 MICROBIOLOGY (.) 10/11/2023 Final Report: Greater than or equal to 100,000 colonies/mL of Escherichia coli Greater than or equal to 100,000 colonies/mL of Escherichia coli #2 MICROBIOLOGY 03/15/2023 Final Report: Less than 100,000 colonies/mL (clinically insignificant growth based on current clinical standards) MICROBIOLOGY Final Report: No growth 09/24/2019 Assessement: Hira Evans is a 73 y.o. male s/p L4-5 open posterior spinal fusion with instrumentation, L4-5 transforaminal lumbar interbody fusion, L4-5 direct decompression. His immediate psot-op course was complicated by seizure and acute PE. Plan: - Lovenox for therapeutic AC in the setting of bilateral PEs. Will remain on AC for 3-6 months. Will need to follow up outpatinet with PCP regarding PEs. Medicine c/s s/o - Maintain drain - Brain MRI completed - Neurology s/o, rec continued Keppra 1000mg BID until follow up - Does not need lumbar brace; maintain lumbar spine precautions - PT/OT - Dressing on for 5 days (comes down 10/28) and then will be switched to island dressing Nasir Manzanares M.D. Department of Orthopaedic Surgery, PGY-3 [facility] [place]/[facility] Please use Melon to page/call the appropriate Orthopaedic Surgery Team/Resident if questions or concerns Please call with questions during daytime. See below for overnight issues. If you know the resident's name on the appropriate orthopaedic surgery team, please use Melon to page resident directly. If questions arise and the appropriate resident can't be reached or you are calling overnight, please contact [phone] ([place]- 7:30 PM - 6:30 AM - Floor Resident) or [phone] (24 hours/day - Consult Resident) Cosigned by Hayder Vu MD at 11/06/2023 6:43 PM HOB MILL OPERATOR MILL OPERATOR MILL OPERATOR * Ana Hampton RN - 10/26/2023 5:44 PM CST Pt transferred to room [address] [place] [address] Face to face report given to annetta MACKEY. belongings transferred with pt. Heparin gtt to be d/c. Labs obtained prior to transfer. MILL OPERATOR * Luana Singh RD - 10/26/2023 3:07 PM CST Nutrition Screen Note Pt. Screened for nutritional assessment secondary to LOS. PMH: UTI, HTN, prostate CA s/p prostatectomy (~2010), GERD, obesity, melanoma (2007), CKD 10/14: FUSION SPINAL - POSTERIOR LUMBAR/THORACIC WITH INSTRUMENTATION: L4-5 open posterior spinal fusion with instrumentation, L4-5 transforaminal lumbar interbody fusion, L4-5 direct decompression, spinal cord monitoring, autograft, allograft LAMINECTOMY LUMBAR - POSTERIOR Past Medical History: Diagnosis Date Allergic rhinitis [...] 09/30/2019 VASECTOMY 30 years ago Anthropometrics Weight: 88.6 kg (195 lb 5.2 oz) Admission Weight : 81.6 kg Weight Change: -0.69 kg (-1.54 lbs) IBW/kg (Calculated) : 69.9 kg Height: 172.7 cm (5' 8 ) Weight in (lb) to have BMI = 25: 164.1 BMI (Calculated): 29.7 Adult Malnutrition Scoring Tool (MST) What diet do you follow at home?: regular diet Have You Recently Lost Weight Without Trying?: No Have you been eating poorly because of a decreased appetite?: No Malnutrition Screening Tool (MST) Score: 0 Dietary Orders (From admission, onward) Start Ordered 10/26/23 1700 Oral Nutrition Supplements Select Supplement: Ensure Max - Debbie With Breakfast and Dinner Question: Select Supplement: Answer: Ensure Max - Debbie 10/26/23 1241 10/25/23 0533 Adult Diet Regular Diet effective now Question: ([facility]) Diet type Answer: Regular 10/25/23 0532 10/24/23 2100 Bedtime snack At bedtime Comments: If bedtime BG is less than 100mg/dl, give patient a 15 gram carbohydrate snack. 10/24/23 0353 Assessment / Impression: Pt screened [place] [id number] [place]. Spoke to pt and at bedside. 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 Started drinking protein supplements at home in prep for surgery and would like to start drinking them again in house. RD ordered Ensure max for additional protein since po intake of meals is improving. No n/v. +BM 3 days ago, RN says bowel regimen has been increased and pt is also receiving lactulose. No chewing/swallowing difficulty. Noted pt wt range 180-195 lbs, wts via different scale types and are also stated so unsure of accuracy. Recommend regular wts via zeroed bed scale. No signs of fat/muscle wasting present. Labs reviewed. +BLE edema. Surgical site on back present. RD following. Joleen Singh, MS, RD, LD [facility] [phone] On-call/weekend: [phone] MILL OPERATOR * Aston Tran PTA - 10/26/2023 2:05 PM CST 10/26/23 1405 PT Last Visit PT Missed Visit Reason Family declined;Other (comment) (Pt's has politely declined PT at this time citing increased pain and fatigue following prior OT session. Pt's requests that PT staff follow-up in AM.) Recommendation/Plan PT - Next Appointment 10/27/23 MILL OPERATOR * Shane Bowen OT - 10/26/2023 9:53 AM CST Occupational Therapy Occupational Therapy Progress [...] not assigned to this patient, please call [phone]. 10/26/23 0941 General Session Type Treatment OT Received On 10/26/23 Safe Environment Arm band checked;Patient found in supine;Gait belt not utilized, see comment (2/2 incisions) Subjective Agreeable to Therapy Family/Caregiver Present No Precautions Precautions Fall risk;Spinal/Back Precaution Handout Issued No Precaution Comments Verbally reviewed precautions prior to mobility and reviewed previously issued hand out Pain Assessment Pain Assessment 0-10 Pain Score 4 Pain Location Back (Lumbar) Pain Orientation Generalized Pain Interventions RN Notified;Repositioned (NARENDRA Perez) Balance Balance Yes Dynamic Sitting Balance Dynamic Sitting-Balance Support No upper extremity supported Dynamic Sitting-Balance Lateral lean;Forward lean;Reaching for objects;Reaching for weighted objects;Reaching across midline Dynamic Sitting-Sitting Surface Bed Dynamic Sitting-Level of Assistance Distant supervision Dynamic Sitting-Comments sup for safety Dynamic Standing Balance Dynamic Standing-Balance Support Bilateral upper extremity supported (on ww) Dynamic Standing-Balance Lateral lean;Forward lean;Reaching for objects;Reaching across midline;Reaching for weighted objects Dynamic Standing-Standing Surface Floor Dynamic Standing-Level of Assistance Contact guard Dynamic Standing-Comments CGA for balance and steadying assist ADL ADLS (WDL) X Grooming Grooming: Where assessed (standing at EOB) Grooming: Level of assistance Contact Guard Assist Grooming: Assistance with Safety (CGA for balance) LE Dressing LE Dressing: Where assessed Standing;Sitting LE Dressing: Level of assistance Minimum Assist LE Dressing: Assistance with Pull up over hips;Fasteners;Use of adaptive equipment;Supervision/safety (Min for task) LE Dressing: Equipment Utilized Sock aid;Scrum Coach;Dressing stick Toileting Toileting: Where assessed Chair Toileting: Level of assistance Minimum Assist Toileting: Assistance with Posterior (Min for task) Bed Mobility Bed Mobility Yes Bed Mobility 1 Bed Mobility From 1 Supine Bed Mobility Type 1 To Bed Mobility to 1 Edge of bed Level of Assistance 1 Minimum Assist Bed Mobility Comments 1 Min A for balance adn safety Transfers Transfer Yes Transfer 1 Transfer From 1 Sit Transfer Type 1 To and from Transfer to 1 Stand Technique 1 Sit to stand;Stand to sit Transfer Device 1 Wheeled walker Transfer Level of Assistance 1 Minimum Assist Trials/Comments 1 Min A for force production Toilet Transfers Toilet Transfer From Bed Toilet Transfer Type To Toilet Transfer to (Chair to sim) Toilet Transfer Technique Stand pivot Toilet Transfer: Equipment Wheeled walker Toilet Transfers Minimal assistance Toilet Transfers Comments Min A for balance, force production and safety Cognition Overall Cognitive Status WFL Arousal/Alertness Alert;Appropriate responses to stimuli Attention Span [...] Compliance/Behavior Easy to engage Perseveration Not present Daily Activity - 6 Clicks Putting on and taking off regular lower body clothing 3 Bathing 3 Toileting 3 Putting on and taking off upper body clothing 3 Personal Grooming 3 Eating Meals 3 Total Score (range 6-24) 18 Score Interpretation 38.66 Safe Environment End of Therapy Session Safe Environment End of Therapy Session Patient left in recliner;RN notified;Call light within reach;Overbed table within reach Assessment Problem List Decreased safe judgment during ADL;Decreased cognition;Decreased endurance;Decreased upper extremity strength;Decreased balance;Decreased fine motor control;Decreased functional mobility;Decreased gross motor control;Decreased ADL independence;Decreased IADL independence Barriers to Discharge Current Mobility Status;Current ADL Status Plan Plan Alter current plan;If this is the last note, consider this the discharge summary Plan Comments D/C rec altered to reflect pt current status Recommendation/Plan OT Recommendation Home with family;Home with 24 hour supervision;Home Health OT Patient at high risk for Falls;Injury due to decreased ability to care for self;Readmission;Injury due to reduced functional status;Injury due to balance deficits OT Frequency during current admission 5-7x/wk Treatment/Interventions during current admission ADL/IADL retraining;Balance Training;Bed mobility;Endurance training;Functional activity;Functional mobility training;Functional transfer training OT Equipment Recommended Wheeled walker Progress during current admission Progressing toward goals OT - Next Appointment 10/27/23 OT - OK to Discharge No OT Evaluation Complete Yes Multi-Disciplinary Problems (from Occupational Therapy) Active Problems Problem: Dressings Lower Extremities Start Date: 10/25/23 Goal Start Date Expected End Date End Date STG - Patient to complete lower body dressing using adaptive strategies as appropriate with SPV. 10/25/23 11/08/23 -- Problem: Grooming Start Date: 10/25/23 Goal Start Date Expected End Date End Date STG - Patient will complete grooming standing at sink with SPV. 10/25/23 11/08/23 -- Problem: Toileting Start Date: 10/25/23 Goal Start Date Expected End Date End Date STG - Patient will complete toileting tasks with SPV. 10/25/23 11/08/23 -- Problem: Transfers Start Date: 10/25/23 Goal Start Date Expected End Date End Date STG - Patient will perform toilet transfer to and from bathroom with SPV. 10/25/23 11/08/23 -- Problem: OT Misc Start Date: 10/25/23 Goal Start Date Expected End Date End Date OT LTG - Patient will complete ADLs and functional mobility with modified independence. 10/25/23 11/22/23 -- Reviewed By Nathen Maharaj RN 10/24/231800 MILL OPERATOR * Nasir Manzanares MD - 10/26/2023 7:08 AM CST Orthopaedic Spine Service Daily Progress Note Admit Date: 10/12/2023 Hospital Day: 13 [place] Dx: L4-L5 Radiculopathy, PMH: UTI, HTN, prostate CA s/p prostatectomy (~2010), GERD, obesity, melanoma (2007), CKD Proc: FUSION SPINAL - POSTERIOR LUMBAR/THORACIC WITH INSTRUMENTATION: L4-5 open posterior spinal fusion with instrumentation, L4-5 transforaminal lumbar interbody fusion, L4-5 direct decompression, spinal cord monitoring, autograft, allograft LAMINECTOMY LUMBAR - POSTERIOR SPINAL CORD MONITORING Exam: Sensation is intact to light touch throughout bilateral lower extremities. Right lower extremity: 5/5 strength iliopsoas, quadriceps, gastrocsoleus, tibialis anterior, EHL. Left lower extremity: 4-/5 strength iliopsoas; 3/5 strength quadriceps; 4+/5 strength gastrocsoleus, tibialis anterior, EHL. : 1950 Admit: 10/12/2023 Interval AFVSS. Back pain well controlled. On 2 L NC. Hgb 7.6 (9.0). WBC 12.7. Still pending brain MRI per neuology to assess for prior stroke. On keppra 1mg BID. EEG completed on 10/24 demonstrates L hemisphere slowing and moderate generalized slowing. Trops down trending. Drain 110/180. Objective Vitals: 24hr Min/Max: Temp Min: 36.6 ??C (97.9 ??F) Max: 37.7 ??C (99.9 ??F) Pulse Min: 57 Max: 116 BP Min: 117/76 Max: 160/77 Resp Min: 14 Max: 25 SpO2 Min: 92 % Max: 100 % I/O last 2 completed shifts: In: 889.9 [P.O.:600; I.V.:269.9; IV Piggyback:20] Out: 1200 [Urine:1060; Drains:140] No intake/output data recorded. Physical Exam: Gen: no acute distress Neuro: A&Ox3 Dressing: clean/dry/intact Wound Vac(s): Not applicable Hemo Vac(s): Holding suction nicely, no apparent leaks Motor: Muscle Strength Right Left Iliopsoas (L2/3) 5/5 4-/5 Quadriceps (L3/4) 5/5 3/5 Tibialis anterior (L4/5) 5/5 4+/5 Extensor hallicus longus (L5) 5/5 4+/5 Gastrocsoleus complex (S1) 5/5 4+/5 Sensation Left upper extremity: SILT C5 to T1 dermatomes. Right upper extremity: SILT C5 to T1 dermatomes. Left lower extremity: SILT L2 to S1 dermatomes. Right lower extremity: SILT L2 to S1 dermatomes. Vascular: Bilateral Upper Extremity: 2+ radial pulse, fingers WWP Bilateral Lower Extremity: 2+ DP pulse, toes WWP Lab/Diagnostic Review: Recent Labs Lab Units 10/26/23 0221 10/25/23 2041 10/24/23 1942 10/24/23 1906 10/23/23 2303 10/23/23 2302 SODIUM mmol/L -- 133* -- 136 -- 137 POTASSIUM PLASMA mmol/L -- See Comment -- 3.7 -- 4.1 CHLORIDE mmol/L -- 103 -- 104 -- 102 CO2 mmol/L -- 26 -- 25 -- 23 ANIONGAP mmol/L -- 4 -- 7 -- 12 GLUCOSE mg/dL -- 157 -- 126 -- 245* POC GLUCOSE MONITOR -- -- < > -- < > -- BUN SERUM mg/dL -- 13 -- 13 -- 12 CREATININE mg/dL -- 0.86 -- 0.94 -- 1.07 CALCIUM mg/dL -- 7.8* -- 8.1* -- 8.3* ALBUMIN g/dL -- -- -- -- -- 2.6* ALK PHOS Units/L -- -- -- -- -- 91 ALT Units/L -- -- -- -- -- 88* AST Units/L -- -- -- -- -- 83* BILIRUBIN TOTAL mg/dL -- -- -- -- -- 0.6 WBC K/cumm 9.0 10.0* < > 12.7* < > -- HEMOGLOBIN g/dL 6.7* 7.0* < > 7.6* < > -- HEMATOCRIT % 19.6* 19.7* < > 22.1* < > -- PLATELETS K/cumm 297 320 < > 332 < > -- NEUTROS PCT % -- 72.9 < > 82.0 < > -- LYMPHS PCT % -- 15.7 < > 9.7 < > -- MONOS PCT % -- 7.8 < > 6.9 < > -- EOS PCT % -- 2.7 < > 0.4 < > -- APTT sec 58* -- < > 35 < > 25* INR -- -- -- 1.21* < > 1.22* < > = values in this interval [...] For susceptibility results, refer to accession number [id number] on the urine culture from 10/11/23 MICROBIOLOGY (.) 10/11/2023 Final Report: Greater than or equal to 100,000 colonies/mL of Escherichia coli Greater than or equal to 100,000 colonies/mL of Escherichia coli #2 MICROBIOLOGY 03/15/2023 Final Report: Less than 100,000 colonies/mL (clinically insignificant growth based on current clinical standards) MICROBIOLOGY Final Report: No growth 09/24/2019 Assessement: Hira Evans is a 73 y.o. male s/p L4-5 open posterior spinal fusion with instrumentation, L4-5 transforaminal lumbar interbody fusion, L4-5 direct decompression. His immediate psot-op course was complicated by seizure and acute PE. Plan: - Medicine consult for assistance with management of BL PEs - Maintain drain - Brain MRI completed - Neurology s/o, rec continued Keppra 1000mg BID until follow up - Does not need lumbar brace; maintain lumbar spine precautions - PT/OT - Dressing on for 5 days (comes down 10/28) and then will be switched to island dressing Nasir Manzanares M.D. Department of Orthopaedic Surgery, PGY-3 [facility] [place]/[facility] Please use Melon to page/call the appropriate Orthopaedic Surgery Team/Resident if questions or concerns Please call with questions during daytime. See below for overnight issues. If you know the resident's name on the appropriate orthopaedic surgery team, please use Melon to page resident directly. If questions arise and the appropriate resident can't be reached or you are calling overnight, please contact [phone] ([facility] 7:30 PM - 6:30 AM - Floor Resident) or [phone] (24 hours/day - Consult Resident) Cosigned by Hayder Vu MD at 10/26/2023 1:04 PM HOB MILL OPERATOR MILL OPERATOR MILL OPERATOR MILL OPERATOR Associated attestation - Hayder Vu Jr., MD - 10/26/2023 1:04 PM HOB MILL OPERATOR Attending Attestation I have seen and examined the patient on 10/26/23 in the Hospital. Afebrile with stable vital signs.Hemoglobin is 6.7, receiving 2 units of packed red blood cells currently. Remains on therapeutic heparin drip. Drain has put out 90 cc over the past shift and was maintained. PT recommends rehab; he was unable to ambulate yesterday. Brain MRI was unrevealing per Neuro who recommended continuing Keppra until outpatient follow-up. Examination is similar to preop. He feels that his left lower extremity pain is much better compared to preop. Right lower extremity 5/5 strength throughout. Left lower extremity 2/5 strength iliopsoas and quadriceps, 4/5 strength tibialis anterior, gastrocsoleus, EHL. Sensation intact to light touch throughout. Drain in place holding suction. Plan for PT, pain control, start therapeutic Lovenox and continue for a week, then switch to Eliquis pending wound check. All the patient's questions and his family members' questions were answered. Hayder Vu Jr., MD Sandblast Operator Department of Orthopaedic Surgery Division of Spine Surgery [facility], [place] [employer] Coxswain done by [employer]; therefore, variances and inaccuracies may occur. * Tia Nolan, CROWN CERAMIST - 10/25/2023 9:09 PM CSTAssociated Order(s): Critical Care Post-Procedure Diagnose(s): Cardiac arrest (HCC) Surgical ICU Daily Progress Team: Blue PM Subjective Patient is a 73 y.o. male admitted on 10/12/2023 6:25 PM with chief complaint of seizure and cardiac arrest post PSF Acute overnight events: Hgb downtrend recheck at 0600 HPI: 73yo male /8 for complicated E. Coli UTI prior undergoing a planned orthopaedic spine surgery, c/b periop seizure and postop code w ROSC after 2min CPR. PMH: DJD, prostate cancer s/p prostatectomy (2010), HTN Abbreviated Hospital Course: 10/12 presented to ED from preoperative anesthesia visit due to concerning UA 10/12 admitted to Medicine from ED w complicated E. Coli UTI w L ureteral stone 10/13 L ureteral stent aborted by Urology 10/14 L perc nephrostomy by IR 10/18 return to OR with Urology for laser lithotripsy and removal of 2 ureteral stones, removal of nephrostomy tube, placement of L ureteral stent 10/23: OR w Ortho Spine for open L4-L5 PSF, laminectomy, with autograft, allograft; at end of procedure noted to be shivering with right gaze deviation followed by generalized seizure and code in PACU 10/25: bMRI: 1. Thin bilateral convexity subdural hematomas, not significantly changed in size compared to the prior head CT Objective Physical Exam: Neuro: awake, alert, oriented, FC, maee Cards:s1s2 rrr Pulm: cta hipolito Gi: soft, nt/nd to light palpation : voids Ext: warm, + pulses no LE edema Access: PIV Medications Scheduled Meds:acetaminophen, 1,000 mg, oral, Q6H CAMMY ceFAZolin, 2,000 mg, intravenous, Q8H CAMMY gabapentin, 300 mg, oral, Q8H CAMMY levETIRAcetam, 1,000 mg, oral, BID lidocaine, 2 patch, transdermal, Daily pantoprazole DR, 40 mg, oral, Daily senna-docusate, 2 tablet, oral, BID sodium chloride 0.9%, 0.5-20 mL, intra-catheter, Q8H CAMMY sodium chloride 0.9%, 0.5-20 mL, intra-catheter, Q8H CAMMY tamsulosin, 0.8 mg, oral, Daily with dinner Continuous Infusions:heparin, 0-33 Units/kg/hr, Last Rate: 24.1 Units/kg/hr (10/25/231899) sodium chloride 0.9%, 3 mL/hr, Last Rate: 3 mL/hr (10/24/231899) PRN Meds:. sodium chloride 0.9% cyclobenzaprine HYDROmorphone ondansetron oxyCODONE sodium chloride 0.9% Vital signs for last 24 hours: Temp: [37 ??C (98.6 ??F)-37.8 ??C (100 ??F)] 37.1 ??C (98.8 ??F) Pulse: [72-116] 87 BP: (117-160)/(67-94) 160/78 Resp: [10-35] 14 SpO2: [89 %-100 %] 96 % Arterial Line BP: (108-167)/(61-77) 121/69 Hemodynamics: MAP (mmHg): [81-105] 95 Pulmonary Support: O2 Therapy: None (Room air) O2 Del Method: Nasal cannula O2 Flow Rate (L/min): 2 L/min Intake/Output: Intake/Output Summary (Last 24 hours) at 10/25/20232108 Last data filed at 10/25/2023 1900 Gross per 24 hour Intake 2470.88 ml Output 1003 ml Net 1467.88 ml Lab/Radiology/Diagnostic Review: Recent Results (from the past 24 hour(s)) Calcium, ionized Collection Time: 10/24/23 9:11 PM Result Value Ref Range Calcium, Ionized 4.38 (L) 4.50 - 5.10 mg/dL POCT glucose Collection Time: 10/24/23 11:45 PM Result Value Ref Range Glucose, POC 141 70 - 199 mg/dL aPTT Collection Time: 10/25/23 3:14 AM Result Value Ref Range aPTT 47 (H) 28 - 38 sec POCT glucose Collection Time: 10/25/23 3:44 AM Result Value Ref Range Glucose, POC 102 70 - 199 mg/dL POCT glucose Collection Time: 10/25/23 6:58 AM Result Value Ref Range Glucose, POC 129 70 - 199 mg/dL CBC with auto differential Collection Time: 10/25/23 10:14 AM Result Value Ref Range WBC 13.3 (H) 3.8 - 9.9 K/cumm Hgb 8.2 (L) 13.0 - 17.5 g/dL Hct 24.1 (L) 38.9 - 50.3 % Plt 367 150 - 400 K/cumm MPV 11.0 9.1 - 12.3 fL RBC 2.57 (L) 4.30 - 5.80 M/cumm MCV 93.8 81.3 - 96.4 fL MCH 31.9 27.1 - 33.3 pg MCHC 34.0 32.3 - 35.7 g/dL RDW CV 12.4 11.1 - 14.9 % RDW SD 43.0 35.7 - 48.1 fL NRBC abs 0.00 0.00 - 0.01 K/cumm aPTT Collection Time: 10/25/23 10:14 AM Result Value Ref Range aPTT 60 (H) 28 - 38 sec Differential, auto Collection Time: 10/25/23 10:14 AM Result Value Ref Range Neutrophil abs 10.6 (H) 1.5 - 6.5 K/cumm Imm gran abs 0.1 0.0 - 0.1 K/cumm Lymphocyte abs 1.5 0.8 - 3.3 K/cumm Monocyte abs 0.9 (H) 0.2 - 0.8 K/cumm Eosinophil abs 0.2 0.0 - 0.5 K/cumm Basophil abs 0.1 0.0 - 0.1 K/cumm Neutrophil pct 79.5 % Imm gran pct 0.5 % Lymphocyte pct 11.3 % Monocyte pct 6.9 % Eosinophil pct 1.1 % Basophil pct 0.7 % POCT glucose Collection Time: 10/25/23 10:57 AM Result Value Ref Range Glucose, POC 195 70 - 199 mg/dL POCT glucose Collection Time: 10/25/23 3:09 PM Result Value Ref Range Glucose, POC 118 70 - 199 mg/dL aPTT Collection Time: 10/25/23 4:59 PM Result Value Ref Range aPTT 62 (H) 28 - 38 sec POCT glucose Collection Time: 10/25/23 7:22 PM Result Value Ref Range Glucose, POC 162 70 - 199 mg/dL CBC with auto differential Collection Time: 10/25/23 8:41 PM Result Value Ref Range WBC 10.0 (H) 3.8 - 9.9 K/cumm Hgb 7.0 (L) 13.0 - 17.5 g/dL Hct 19.7 (L) 38.9 - 50.3 % Plt 320 150 - 400 K/cumm MPV 11.6 9.1 - 12.3 fL RBC 2.14 (L) 4.30 - 5.80 M/cumm MCV 92.1 81.3 - 96.4 fL MCH 32.7 27.1 - 33.3 pg MCHC 35.5 32.3 - 35.7 g/dL RDW CV 12.6 11.1 - 14.9 % RDW SD 42.2 35.7 - 48.1 fL NRBC abs 0.00 0.00 - 0.01 K/cumm Differential, auto Collection Time: 10/25/23 8:41 PM Result Value Ref Range Neutrophil abs 7.3 (H) 1.5 - 6.5 K/cumm Imm gran abs 0.1 0.0 - 0.1 K/cumm Lymphocyte abs 1.6 0.8 - 3.3 K/cumm Monocyte abs 0.8 0.2 - 0.8 K/cumm Eosinophil abs 0.3 0.0 - 0.5 K/cumm Basophil abs 0.0 0.0 - 0.1 K/cumm Neutrophil pct 72.9 % Imm gran pct 0.5 % Lymphocyte pct 15.7 % Monocyte pct 7.8 % Eosinophil pct 2.7 % Basophil pct 0.4 % MRI Brain Epilepsy W WO Contrast Result Date: 10/25/2023 1. Thin bilateral convexity subdural hematomas, not significantly changed in size compared to the prior head CT. 2. Diffuse pachymeningeal thickening and enhancement likely related to recent lumbar surgery. 3. No MR evidence of abnormalities of neuronal migration. Dictated by: Mandi Humphries radiology attending physician has personally reviewed this study, and had reviewed and/or edited this written report and agrees with it. Electronically signed by: Francia Schmitz M.D. XR Chest 1 View Result Date: 10/25/2023 Comparison made to chest radiograph 10/22/2023 at 6:07 AM. No focal consolidation, pleural effusion, or pneumothorax. Unchanged elevation left hemidiaphragm. Bilateral rib fractures are better appreciated on prior CT. Dictated by: Alice Rios MD, PhD. The radiology attending physician haspersonally reviewed this study, and had reviewed and/or edited this written report and agrees with it. Electronically signed by: Keely Williamson M.D. CT Head WO Contrast Result Date: 10/24/2023 Subtle white matter hypoattenuation with loss of alvarado-white differentiation the left frontal pole. If there is clinical concern for stroke, MRI of brain can be performed for further evaluation. The Critical results were discussed with Dr. Reyes by Dr. Martinez on 10/24/2023 at 12:29 AM ADDENDUM - This addendum is being placed on the report for a time dependent finding on a patient who is admitted to the hospital (2B). There are bilateral subdural hematomas along the cerebral convexities, likely subacute. The left hematoma measures approximately 2 mm, while the right measures approximately 1 mm.. These findings were communicated to Dr. Langley by Dr. Martinez at 7:11AM on 10/24/2023. Dictated by: Eric Martinez M.D. The radiology attending physician has personally reviewed this study, and had reviewed and/or edited this written report and agrees with it. Electronically signed by: Zac Mcgarry M.D. CT Chest PE (CTA) Abdomen Pelvis W Contrast Result Date: 10/24/2023 1. Acute pulmonary emboli involving the distal right and left main pulmonary arteries extending into all bilateral lobar and multiple bilateral segmental pulmonary arteries. No CT evidence of right heart strain. 2. Interval removal of the left percutaneous nephrostomy tube and placement of left double-J ureteral stent. There is a stable left renal subcapsular hematoma and a 10 mm crescentic density along the ureteral stent, which likely represent residual calculus. 3. New right 2nd through 6th and left 2nd through 7th rib fractures, likely secondary to cardiopulmonary resuscitation. The Critical results were discussed with Dr. Mahan by Dr. Zhu on 10/24/2023 at 00:11 Dictated by: Sudhakar Zhu MD, PHD The radiology attending physician has personally reviewed this study, and hadreviewed and/or edited this written report and agrees with it. Electronically signed by: Clemente Mathew M.D. Assessment/Plan Principal Problem: Hydronephrosis with urinary obstruction due to renal calculus Active Problems: HTN (hypertension) Prostate cancer (HCC) Lumbar radiculopathy Ureteral colic UTI (urinary tract infection) Left perinephric collection, 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 S/P spinal fusion Cardiac arrest (HCC) Neurologic: #Acute on chronic pain - s/p surgery with chronic back pain - scheduled APAP, gabapentin, lidocaine patches - prn oxy, dilaudid - pain goal <4/10, continue to monitor closely and frequently reassess Add prn flexeril #Acute Encephalopathy, resolved #c/f seizure #SDH, subacute - Neurology following - 10/24: routine EE) left hemisphere slowing, and 2) moderate generalized slowing of the background - CTH w left frontal alvarado-white matter changes c/f prior stroke also with small subacute SDH - brain MRI ordered--see results above - continue keppra 1g BID - repeat CTH once therapeutic on heparin gtt to reassess SDH #DJD, chronic - 10/23: s/p open L4-L5 posterior spinal fusion with instrumentation, TLIF from left side, laminectomy, with autograft, allograft - Ortho Spine primary - lumbar spine precautions - PT/OT - monitor drain output Overall CAM-ICU: Negative (10/25/231999) Cardiovascular: - 10/24 TTE Mild-moderate RV cavity enlargement with Terrell sign. Overall, normal RV function (TAPSE 2.5 cm). Estimated PA systolic pressure 40+RA(8)mmHg. No valvular abnormality noted. LV cavity size is normal with normal systolic function. LVEF70%. Grade I diastolic function with normal mean LA pressure. Normal Inferior vena cava. Normal aorta. No prior study. #s/p cardiac arrest - Bilateral PE on CT - EKG NSR without ST changes - TTE as above #HTN - Holding home ibersartan Pulmonary: #Acute Respiratory Insufficiency, resolved #bilateral rib fractures - Bilateral rib fractures following CPR - currently on RA - Pulm hygiene, SpO2 goal >92%, IS, PT/OT #Bilateral pulmonary emboli - 10/23 CTPE: Acute pulmonary emboli involving the distal right and left main pulmonary arteries extending into all bilateral lobar and multiple bilateral segmental pulmonary arteries. No CT evidenceof right heart strain. - Heparin gtt, no bolus -Need repeat head CT when therapeutic on heparin - pulm hygiene GI: Diet: regular diet Bowel regimen: pericolace #GERD, chronic - continue PPI Endocrine: - 10/11 hgb a1c: 5.5 - ICU SSI Renal: -voiding #left renal stones, POA - Urology following - 10/12: admitted to Medicine from ED w complicated E. Coli UTI w L ureteral stone - 10/13: L ureteral stent aborted by Urology - 10/14: L perc nephrostomy by IR - 10/18: return to OR with Urology for laser lithotripsy and removal of 2 ureteral stones, removal of nephrostomy tube, placement of L ureteral stent - Urology plans for repeat ureteroscopy in 2 months with possible stent removal - no indication for continued ABX per Urology Cr Lab Results Component Value Date CREATININE 0.94 10/24/2023 HEME: #ABLA Lab Results Component Value Date HGB 7.0 (L) 10/25/2023 -repeat cbc at 0600 -No s/s bleeding, no indication for transfusion, continue to monitor closely ID: #Leukocytosis Lab Results Component Value Date WBC 10.0 (H) 10/25/2023 Antibiotics: - ancef x 9 doses post op (10/23 - 10/26) - Vancomycin 1500 q12 (10/23-10/25) - Keflex (10/19-) Cultures: - UA (10/11): E. Coli Intensive Care Unit Standards of Care: Restraints: DVT prophylaxis: SCDs Vascular access: PIVs Goals of care: Full code Assessment and plan has been reviewed with attending, Dr. Adis Nolan, [facility] Critical Care Performed by: Tia Nolan NP Authorized by: Tia Nolan NP CRITICAL CARE: Team: SICU BLUE Shift: PM Level of Billing: Subsequent Hospital Visit Level 3 My time spent with this patient was 65 minutes: Critical Provider Statement: I have seen and examined the patient on this day of service. I have reviewed and confirmed the history, physical exam, laboratory, and radiographic data as documented in the ICU note. I have reviewed and discussed my treatment plan with the patient's team and other medical/telesales consultant staff. This time was in addition to and separate from care provided by other practitioners on this day of service. I spent time reviewing and interpreting data from bedside monitors, laboratory results, and imaging, I spent time discussing the management of this critically ill patient with consultants and the medical staff and I spent time documenting in the medical record Cosigned by Wilder Arceo Jr., MD at 10/26/2023 5:49 AM HOB MILL OPERATOR MILL OPERATOR MILL OPERATOR * Vandana Correa OT - 10/25/2023 11:36 AM CST Occupational Therapy Occupational Therapy Initial Assessment NOTE:This is a summary note for the jones assessments completed during the evaluation session. For full details, review chart review for all flowsheets documented on by this Occupational Therapist on this date. Vital signs documented in vital signs flowsheet. Assessment Assessment Problem List: Decreased safe judgment during ADL, Decreased endurance, Decreased balance, Decreasedfunctional mobility, Decreased IADL independence, Decreased ADL independence, Pain Barriers to Discharge: Current Mobility Status, Decreased safety awareness, Cognition Barrier Comments: fall risk, decreased ADL independence Plan Plan Plan: Plan of care initiated, If this is the last note, consider this the discharge summary OT Recommendation and Plan Recommendation/Plan OT Recommendation: Inpatient Rehab Facility Patient at high risk for: Falls, Readmission, Injury due to reduced functional status, Injury [...] most ADL tasks OT Frequency during current admission: 5-7x/wk Comments: Patient seen for initial OT evaluation, demoing deficits in activity tolerance, balance and coordination with functional mobility, and overall decreased ADL independence 2/2 spinal precautions. Patient will continue to benefit from OT services to address aforementioned limitations upon discharge. Treatment/Interventions during current admission: ADL/IADL retraining, Balance Training, Bed mobility, Compensatory technique education, Endurance training, Equipment eval/education, Functional activity, Functional transfer training, Functional mobility training, Strengthening, Therapeutic activity, Therapeutic exercise, Transfer training OT - Next Appointment: 10/26/23 OT - OK to Discharge: No OT Evaluation Complete: Yes General Information General Chart Reviewed: Yes Session Type: Evaluation OT Received On: 10/25/23 Safe Environment: Arm band checked, Patient found in supine, Session completed bedside, Gait belt not utilized, see comment (2/2 spinal incision and acute rib fractures.) Subjective: Agreeable to Therapy Family/Caregiver Present: No Occupational Therapy-Patient Goal: Patient agreeable to OT plan of care and goals Precautions Precautions Precautions: Fall risk, Spinal/Back Precaution Handout Issued: No Precaution Comments: Verbally reviewed spinal precautions, reports understanding though requires cues for adherence to spinal precautions throughout session. Home Living Home Living Type of Home: House Home Layout: One level Home Access: Stairs to enter with rails Entrance Stairs-Rails: Right Entrance Stairs-Number of Steps: 2 Bathroom Shower/Tub: Tub/shower unit Bathroom Toilet: Standard Bathroom Equipment: Shower chair Home Mobility Equipment-Available: Wheeled walker, Single point cane, Wheelchair-manual Home Mobility Equipment-Currently Using: Wheeled walker Prior Function Prior Function Level of Reliance: Independent with ADLs, Independent functional transfers, Independent with ambulation, Needs assistance with homemaking Lives With: Spouse Receives Help From: Spouse/Significant other, Family (FT assistance as needed) Driving: Yes ADL Assistance: Independent Instrumental ADL (IADL) Assistance: Independent 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 Patient was utilizing a WW prior to this admission. Activities of Daily Living Grooming Grooming: Where assessed: Other (Comment) (standing at tabletop) Grooming: Level of assistance: Minimum Assist Grooming: Assistance with: Increased time to complete (steadying assistance; unable to tolerate standing balance without unilateral support) LE Dressing LE Dressing: Where assessed: Sitting, Standing LE Dressing: Level of assistance: Maximum Assist LE Dressing: Assistance with: Thread RLE into pants, Don/doff L sock, Don/doff R sock, Thread LLE into pants, Thread RLE into underwear, Thread LLE into underwear, Don/doff R shoe, Don/doff L shoe, Maintains precautions, Safety Toileting Toileting: Where assessed: Chair Toileting: Level of assistance: Minimum Assist Toileting: Assistance with: Increased time to complete (steadying assistance with standing balance) Toilet Transfers Toilet Transfer From: Chair with arms Toilet Transfer Type: To Toilet Transfer to: (simulated BSC transfer to EOB) Toilet Transfer Technique: Stand pivot (stand and step) Toilet Transfer: Equipment: Wheeled walker Toilet Transfers: Moderate assistance Toilet Transfers Comments: assistance for force production into stance, steadying assistance with Pain Pain Assessment Pain Assessment: 0-10 Patient's Stated Pain Goal: No pain Pain Type: Surgical pain Pain Location: Back (Lumbar) Pain Interventions: Repositioned, Rest, RN Notified (NARENDRA Akhtar provided pain medications for management of symptoms) Response to Interventions: Partial pain relief Cognition Cognition Overall Cognitive Status: Within Functional Limits (for SBT) Arousal/Alertness: Alert, Appropriate responses to stimuli Attention Span: Appears intact Memory: Appears intact Current communication: Appears Intact Orientation : Oriented X4 (person, place, time, situation) Following Commands: Follows all commands and directions without difficulty Safety Judgment: Good awareness of safety precautions Awareness of Errors: Good awareness of errors made Insight: Fully aware of deficits Problem Solving: Assistance required to generate solutions, Assistance required to implement solutions Compliance/Behavior: Easy to engage Perseveration: Not present Short Blessed Test What year is it now?: Correct What month is it now?: Correct Repeat this name and address after me: Hayder Reddy [address] [place] [address] Without looking at the clock, tell me [...] A lot Bathing: A lot Toileting: A little Putting on and taking off upper body clothing: A Little Personal Grooming: A little Eating Meals: A little Total Score (range 6-24): 16 Score Interpretation: 16 Balance Static Sitting Balance Static Sitting-Balance Support: Bilateral upper extremity supported Static Sitting-Sitting Surface: Bed, Chair Static Sitting-Level of Assistance: Close supervision Static Sitting-Comment/# of Minutes: for safety Dynamic Sitting Balance Dynamic Sitting-Balance Support: Unilateral upper extremity supported Dynamic Sitting-Balance: Lateral lean, Forward lean, Reaching for objects Dynamic Sitting-Sitting Surface: Bed Dynamic Sitting-Level of Assistance: Contact guard Dynamic Sitting-Comments: for safety Static Standing Balance Static Standing-Balance Support: Bilateral upper extremity supported (on WW) Static Standing-Standing Surface: Floor Static Standing-Level of Assistance: Contact guard Static Standing-Comment/# of Minutes: for safety Dynamic Standing Balance Dynamic Standing-Balance Support: Unilateral upper extremity supported Dynamic Standing-Balance: Lateral lean, Forward lean, Reaching for objects Dynamic Standing-Standing Surface: Floor Dynamic Standing-Level of Assistance: Minimum assistance Dynamic Standing-Comments: steadying assistance for return to midline from OBOS Transfers Transfers Transfer: Yes Transfer 1 Transfer From 1: Sit Transfer Type 1: To and from Transfer to 1: Stand Technique 1: Sit to stand, Stand to sit Transfer Device 1: Wheeled walker Transfer Level of Assistance 1: Moderate Assist Trials/Comments 1: assistance for force production into stance, steadying assistance in standing with wide NAKUL Bed Mobility Bed Mobility Bed Mobility: Yes Bed Mobility 1 Bed Mobility From 1: Edge of bed Bed Mobility Type 1: To Bed Mobility to 1: Supine Level of Assistance 1: Moderate Assist Bed Mobility Comments 1: assistance for BLE management. HOB flat, requires cues and assistance for return to supine utilizing log roll technique RUE Assessment RUE Assessment RUE Assessment: Exceptions to WFL RUE Comments: Able to demo ROM WFL for ADLs management. RUE AROM (degrees) RUE Overall AROM: Deficits, Due to pain (in ribcage; defers overhead reach this date.) LUE Assessment LUE Assessment LUE Assessment: Exceptions to WFL LUE Comments: Able to demo ROM WFL for ADLs management LUE AROM (degrees) LUE Overall AROM: Deficits, Due to pain (in ribcage; defers overhead reach this date.) Safe Environment End of Session Safe Environment End of Therapy Session: Patient left supine in bed, RN notified, Call light withinreach, Overbed table within reach, Bed rails up per protocol, Bed in lowest position with wheels locked Other Comments Other Comments Comments: Patient seen for initial OT evaluation, demoing deficits in activity tolerance, balance and coordination with functional mobility, and overall decreased ADL independence 2/2 spinal precautions. Patient will continue to benefit from OT services to address aforementioned limitations upon discharge. OT Goals Multi-Disciplinary Problems (from Occupational Therapy) Active Problems Problem: Dressings Lower Extremities Start Date: 10/25/23 Goal Start Date Expected End Date End Date STG - Patient to complete lower body dressing using adaptive strategies as appropriate with SPV. 10/25/23 11/08/23 -- Problem: Grooming Start Date: 10/25/23 Goal Start Date Expected End Date End Date STG - Patient will complete grooming standing at sink with SPV. 10/25/23 11/08/23 -- Problem: Toileting Start Date: 10/25/23 Goal Start Date Expected End Date End Date STG - Patient will complete toileting tasks with SPV. 10/25/23 11/08/23 -- Problem: Transfers Start Date: 10/25/23 Goal Start Date Expected End Date End Date STG - Patient will perform toilet transfer to and from bathroom with SPV. 10/25/23 11/08/23 -- Problem: OT Misc Start Date: 10/25/23 Goal Start Date Expected End Date End Date OT LTG - Patient will complete ADLs and functional mobility with modified independence. 10/25/23 11/22/23 -- Reviewed By Nathen Maharaj RN 10/24/23 1801 For questions, please review the treatment team and contact the occupational therapist currently assigned to this patient. If an occupational therapist is not assigned to this patient, please call [phone]. MILL OPERATOR * Alisa Nath, PT - 10/25/2023 8:30 AM CST Physical Therapy Physical Therapy Progress [...] treatment team and contact the PT or PREMIUM NOTE INTEREST CALCULATOR CLERK currently assigned to this patient. If a physical therapy clinician is not assigned to this patient, please call [phone]. 10/25/23 0830 PT Last Visit Session Type Re-Evaluation (2/2 OR for PSIF c/b cardiac arrest and decline in functional mobility) PT Received On 10/25/23 Safe Environment Arm band checked;Patient found in supine;Gait belt not utilized, see comment (2/2 spine incision) Subjective Agreeable to Therapy Family/Caregiver Present Yes ( and daughter) Precautions Precautions Fall risk;Spinal/Back Precaution Comments verbally reviewed spine precautions Activity Tolerance Activity Tolerance Comments RPE: hard Pain Assessment Pain Assessment 0-10 Pain Score 3 Pain Location Back (Lumbar) Pain Orientation Generalized Cognition Orientation Oriented X4 (person, place, time, situation) Following Commands Follows all commands and directions without difficulty Safety Judgment Good awareness of safety precautions Compliance/Behavior Easy to engage Balance Balance Yes Static Sitting Balance Static Sitting-Balance Support Feet supported;Bilateral upper extremity supported Static Sitting-Sitting Surface Bed Static Sitting-Level of Assistance Close supervision Static Sitting-Comment/# of Minutes Cues for upright posture and safety Static Standing Balance Static Standing-Balance Support Bilateral upper extremity supported (supported on PT and RN) Static Standing-Standing Surface Floor Static Standing-Level of Assistance Moderate assistance (x2) Static Standing-Comment/# of Minutes Mod Ax2 to maintain hip/knee/trunk extension and balance ICU Mobility Scale ICU Mobility Scale 5 FSS-ICU Functional Status Score (ICU scale) Rolling 3 Supine to Sit 3 Sitting 5 Sit to Stand 2 Ambulation or Wheelchair Mobility? Ambulation Ambulation 0 Score (Out of 35) 13 FSS Interpretation - calculated average score Bed Mobility Bed Mobility Yes Bed Mobility 1 Bed Mobility From 1 Supine Bed Mobility Type 1 To Bed Mobility to 1 Edge of bed Level of Assistance 1 Moderate Assist Bed Mobility Comments 1 Mod A with use of log roll, assist for force production to sidelying, LE management, trunk elevation and positioning hips at EOB Transfers Transfer Yes Transfer 1 Transfer From 1 Sit Transfer Type 1 To and from Transfer to 1 Stand Technique 1 Sit to stand;Stand to sit Transfer Device 1 No device Transfer Level of Assistance 1 Moderate Assist (x2) Trials/Comments 1 attempted assist of one however pt unable to clear hips from EOB, mod A x2 for force production, hip/knee/trunk extension and controlled descent to sit. Transfers 2 Transfer From 2 Bed Transfer Type 2 To Transfer to 2 Chair with arms Technique 2 Stand and step Transfer Device 2 No device Transfer Level of Assistance 2 Moderate Assist (x2) Trials/Comments 2 Mod A x2 for balance, weight shifting and pivoting hips to chair Ambulation Ambulation No (2/2 c/f safety) Stairs Stairs No Other Comments Other PT Comments Pt and pt's family agreeable to PT POC and d/c recs, limited 2/2 pain and anxietybut very motivated to work with PT and continue progressing. Basic Mobility - 6 Click How much [...] patient currently need: Walk in hospital room? 2 How much help from another person does the patient currently need: Climbing 3-5 steps with a railing? 1 Total 6 Click Score (range 6-24) 11 Score Interpretation 30.25 Safe Environment End of Therapy Session Safe Environment End of Therapy Session Patient left in chair;RN notified;Call light within reach Assessment Prognosis Good Problem List Decreased strength;Decreased endurance;Impaired balance;Decreased mobility;Decreased coordination;Orthopedic restrictions;Pain Plan Plan Alter current plan;If this is the last note, consider this the discharge summary Plan Comments updated d/c recs and frequency Recommendation/Plan PT Recommendation/Plan Inpatient Rehab Facility Patient at high risk for Falls;Readmission;Injury due to reduced functional status;Injury due to balance deficits Recommend Inpatient Rehab/Acute Rehab due to Ability to actively participate in intensive therapy 3hours/day, 5 days/week or 900 minutes per week;Highly motivated to participate in therapy;Impaired ability to complete functional mobility;Requires greater than 25% physical assistance with most mobility tasks;Requires multiple therapy disciplines to address functional deficits PT Frequency during current admission 5-7x/wk Treatment/Interventions during current admission Balance Training;Bed mobility;Endurance training;Equipment eval/education;Functional activity;Functional transfer training;Gait training;Neuromuscularre- education;Strengthening;Therapeutic activity;Therapeutic exercise PT Equipment Recommended None Progress during current admission Slow progress, medical status limitations PT - Next Appointment 10/26/23 Multi-Disciplinary Problems (from Physical Therapy) Active Problems Problem: Mobility Start Date: 10/17/23 Goal Start Date Expected End Date End Date STG - Patient will ambulate 10/17/23 10/31/23 -- Goal Details: 25ft with LRD as needed, min A Problem: Transfers Start Date: 10/17/23 Goal Start Date Expected End Date End Date STG - Patient will transfer sit to and from stand 10/17/23 10/31/23 -- Goal Details: Min A with LRD Problem: PT Misc Start Date: 10/17/23 Goal Start Date Expected End Date End Date PT LTG - Misc 1 10/17/23 12/05/23 -- Goal Details: Pt to be modified independent with all mobility to allow return to PLOF Problem: Transfers Start Date: 10/25/23 Goal Start Date Expected End Date End Date STG - Patient to transfer to and from sit to supine 10/25/23 10/31/23 -- Goal Details: Min A with use of log roll Reviewed By Nathen Maharaj RN 10/24/231800 MILL OPERATOR * Nasir Manzanares MD - 10/25/2023 7:53 AM CST Orthopaedic Spine Service Daily Progress Note Admit Date: 10/12/2023 Hospital Day: 12 [place] Dx: L4-L5 Radiculopathy, PMH: UTI, HTN, prostate CA s/p prostatectomy (~2010), GERD, obesity, melanoma (2007), CKD Proc: FUSION SPINAL - POSTERIOR LUMBAR/THORACIC WITH INSTRUMENTATION: L4-5 open posterior spinal fusion with instrumentation, L4-5 transforaminal lumbar interbody fusion, L4-5 direct decompression, spinal cord monitoring, autograft, allograft LAMINECTOMY LUMBAR - POSTERIOR SPINAL CORD MONITORING Exam: Sensation is intact to light touch throughout bilateral lower extremities. Right lower extremity: 5/5 strength iliopsoas, quadriceps, gastrocsoleus, tibialis anterior, EHL. Left lower extremity: 3/5 strength iliopsoas; 2/5 strength quadriceps; 4/5 strength gastrocsoleus, tibialis anterior, EHL. : 1950 Admit: 10/12/2023 Interval AFVSS. Back pain well controlled. On 2 L NC. Hgb 7.6 (9.0). WBC 12.7. Still pending brain MRI per neuology to assess for prior stroke. On keppra 1mg BID. EEG completed on 10/24 demonstrates L hemisphere slowing and moderate generalized slowing. Trops down trending. Drain 110/180. Exam: LLE motor 2/5 IP, 3/5 Q, 4/5 H, 5/5 TA/GSC/EHL. RLE Motor 5/5 SILT throughout. Dressings c/d/i. Plan: Will maintain drain, pending complete neurology workup/recs. Pending repeat CTH once therapeutic on heparin toreassess SDH. Okay to transition out of ICU when medically stable with medicine consult Objective Vitals: 24hr Min/Max: Temp Min: 37.4 ??C (99.3 ??F) Max: 37.8 ??C (100 ??F) Pulse Min: 73 Max: 92 BP Min: 126/68 Max: 172/82 Resp Min: 10 Max: 35 SpO2 Min: 89 % Max: 100 % I/O last 2 completed shifts: In: 3316 [P.O.:1600; I.V.:476; IV Piggyback:1240] Out: 1633 [Urine:1453; Drains:180] No intake/output data recorded. Physical Exam: Gen: no acute distress Neuro: A&Ox3 Dressing: clean/dry/intact Wound Vac(s): Not applicable Hemo Vac(s): Holding suction nicely, no apparent leaks Motor: Muscle Strength Right Left Interosseous of hand (T1) 5/5 5/5 Iliopsoas (L2/3) 4/5 2/5 Quadriceps (L3/4) 4/5 3/5 Tibialis anterior (L4/5) 4/5 5/5 Extensor hallicus longus (L5) 4/5 5/5 Gastrocsoleus complex (S1) 4/5 5/5 Sensation Left upper extremity: SILT C5 to T1 dermatomes. Right upper extremity: SILT C5 to T1 dermatomes. Left lower extremity: SILT L2 to S1 dermatomes. Right lower extremity: SILT L2 to S1 dermatomes. Vascular: Bilateral Upper Extremity: 2+ radial pulse, fingers WWP Bilateral Lower Extremity: 2+ DP pulse, toes WWP Lab/Diagnostic Review: Recent Labs Lab Units 10/25/23 0658 10/25/23 0344 10/25/23 0314 10/24/23 1942 10/24/23 1906 10/23/23 2303 10/23/23 2302 SODIUM mmol/L -- -- -- -- 136 -- 137 POTASSIUM PLASMA mmol/L -- -- -- -- 3.7 -- 4.1 CHLORIDE mmol/L -- -- -- -- 104 -- 102 CO2 mmol/L -- -- -- -- 25 -- 23 ANIONGAP mmol/L -- -- -- -- 7 -- 12 GLUCOSE mg/dL -- -- -- -- 126 -- 245* POC GLUCOSE MONITOR mg/dL 129 < > -- < > -- < > -- BUN SERUM mg/dL -- -- -- -- 13 -- 12 CREATININE mg/dL -- -- -- -- 0.94 -- 1.07 CALCIUM mg/dL -- -- -- -- 8.1* -- 8.3* ALBUMIN g/dL -- -- -- -- -- -- 2.6* ALK PHOS Units/L -- -- -- -- -- -- 91 ALT Units/L -- -- -- -- -- -- 88* AST Units/L -- -- -- -- -- -- 83* BILIRUBIN TOTAL mg/dL -- -- -- -- -- -- 0.6 WBC K/cumm -- -- -- -- 12.7* < > -- HEMOGLOBIN g/dL -- -- -- -- 7.6* < > -- HEMATOCRIT % -- -- -- -- 22.1* < > -- PLATELETS K/cumm -- -- -- -- 332 < > -- NEUTROS PCT % -- -- -- -- 82.0 < > -- LYMPHS PCT % -- -- -- -- 9.7 < > -- MONOS PCT % -- -- -- -- 6.9 < > -- EOS PCT % -- -- -- -- 0.4 < > -- APTT sec -- -- 47* -- 35 < > 25* INR -- -- -- -- 1.21* < > 1.22* < > = values in this interval [...] For susceptibility results, refer to accession number [id number] on the urine culture from 10/11/23 MICROBIOLOGY (.) 10/11/2023 Final Report: Greater than or equal to 100,000 colonies/mL of Escherichia coli Greater than or equal to 100,000 colonies/mL of Escherichia coli #2 MICROBIOLOGY 03/15/2023 Final Report: Less than 100,000 colonies/mL (clinically insignificant growth based on current clinical standards) MICROBIOLOGY Final Report: No growth 09/24/2019 Assessement: Hira Evans is a 73 y.o. male s/p L4-5 open posterior spinal fusion with instrumentation, L4-5 transforaminal lumbar interbody fusion, L4-5 direct decompression. His immediate psot-op course was complicated by seizure and acute PE. Plan: - Can transition out of ICU when medically stable but need medicine consult - follow-up MRI brain - Does not need lumbar brace; maintain lumbar spine precautions - PT/OT when able - Continue drain (abx while drain in place Ancef and Vanc) - Dressing on for 5 days (comes down 10/28) and then will be switched to island dressing Nasir Manzanares M.D. Department of Orthopaedic Surgery, PGY-3 [facility] in [place]/[facility] Please use Melon to page/call the appropriate Orthopaedic Surgery Team/Resident if questions or concerns Please call with questions during daytime. See below for overnight issues. If you know the resident's name on the appropriate orthopaedic surgery team, please use Melon to page resident directly. If questions arise and the appropriate resident can't be reached or you are calling overnight, please contact [phone] ([facility] 7:30 PM - 6:30 AM - Floor Resident) or [phone] (24 hours/day - Consult Resident) Cosigned by Hayder Vu MD at 10/26/2023 12:58 PM HOB MILL OPERATOR MILL OPERATOR MILL OPERATOR * Luana Brady NP - 10/25/2023 7:04 AM CST Surgical ICU Daily Progress Team: Blue AM Subjective Hira Evans is a 73 y.o. male admitted on 10/12/2023 6:25 PM with chief complaint of seizure and cardiac arrest post PSF. PMH: DJD, prostate cancer s/p prostatectomy (2010), HTN Abbreviated Hospital Course: 10/12 presented to ED from preoperative anesthesia visit due to concerning UA 10/12 admitted to Medicine from ED w complicated E. Coli UTI w L ureteral stone 10/13 L ureteral stent aborted by Urology 10/14 L perc nephrostomy by IR 10/18 return to OR with Urology for laser lithotripsy and removal of 2 ureteral stones, removal of nephrostomy tube, placement of L ureteral stent 10/23: OR w Ortho Spine for open L4-L5 PSF, laminectomy, with autograft, allograft; at end of procedure noted to be shivering with right gaze deviation followed by generalized seizure and code in PACU 10/25: bMRI: 1. Thin bilateral convexity subdural hematomas, not significantly changed in size compared to the prior head CT. Interval History: - TTE 10/24 EF 70%, positive McConnel sign - EEG (-) L side slowing - Advanced diet Objective Physical Exam: General: well nourished, well developed male in No Acute Distress Neuro: A&Ox4, follows commands, moves all extremities, LLE weakness present prior to surgery, PERRL Cardiac: S1 and S2, Regular Rate and Rhythm, no M/G/R Pulmonary: Lungs clear to auscultation, respirations even/unlabored Abdominal: Soft/Nontender/Nondistended, normoactive bowel sounds Extremities: No edema, Pulses Present and Palpable Drains: Harris-urine clear yellow Wounds: See RN flowsheet Vital signs for last 24 hours: Temp: [37.3 ??C (99.1 ??F)-37.8 ??C (100 ??F)] 37.3 ??C (99.1 ??F) Pulse: [73-116] 116 BP: (117-172)/(67-94) 132/84 Resp: [10-35] 25 SpO2: [89 %-100 %] 97 % Arterial Line BP: (108-186)/(61-77) 121/69 Hemodynamics: MAP (mmHg): [81-104] 97 Pulmonary Support: O2 Therapy: None (Room air) O2 Del Method: Nasal cannula O2 Flow Rate (L/min): 2 L/min Intake/Output: Intake/Output Summary (Last 24 hours) at 10/25/2023 1310 Last data filed at 10/25/2023 1200 Gross per 24 hour Intake 2720.44 ml Output 1388 ml Net 1332.44 ml Lab/Radiology/Diagnostic Review: Laboratory review: reviewed the laboratory result(s) in the last 24 hours Recent Results (from the past 24 hour(s)) POCT glucose Collection Time: 10/24/23 2:58 PM Result Value Ref Range Glucose, POC 122 70 - 199 mg/dL CBC with auto differential Collection Time: 10/24/23 7:06 PM Result Value Ref Range WBC 12.7 (H) 3.8 - 9.9 K/cumm Hgb 7.6 (L) 13.0 - 17.5 g/dL Hct 22.1 (L) 38.9 - 50.3 % Plt 332 150 - 400 K/cumm MPV 10.8 9.1 - 12.3 fL RBC 2.42 (L) 4.30 - 5.80 M/cumm MCV 91.3 81.3 - 96.4 fL MCH 31.4 27.1 - 33.3 pg MCHC 34.4 32.3 - 35.7 g/dL RDW CV 12.5 11.1 - 14.9 % RDW SD 42.5 35.7 - 48.1 fL NRBC abs 0.00 0.00 - 0.01 K/cumm Protime-INR Collection Time: 10/24/23 7:06 PM Result Value Ref Range PT 13.8 (H) 10.3 - 13.7 sec INR 1.21 (H) 0.90 - 1.20 aPTT Collection Time: 10/24/23 7:06 PM Result Value Ref Range aPTT 35 28 - 38 sec Magnesium Collection Time: 10/24/23 7:06 PM Result Value Ref Range Magnesium 2.1 1.4 - 2.5 mg/dL Phosphorus Collection Time: 10/24/23 7:06 PM Result Value Ref Range Phosphorus, pl 3.3 2.3 - 4.5 mg/dL Differential, auto Collection Time: 10/24/23 7:06 PM Result Value Ref Range Neutrophil abs 10.4 (H) 1.5 - 6.5 K/cumm Imm gran abs 0.1 0.0 - 0.1 K/cumm Lymphocyte abs 1.2 0.8 - 3.3 K/cumm Monocyte abs 0.9 (H) 0.2 - 0.8 K/cumm Eosinophil abs 0.1 0.0 - 0.5 K/cumm Basophil abs 0.1 0.0 - 0.1 K/cumm Neutrophil pct 82.0 % Imm gran pct 0.5 % Lymphocyte pct 9.7 % Monocyte pct 6.9 % Eosinophil pct 0.4 % Basophil pct 0.5 % eGFR Collection Time: 10/24/23 7:06 PM Result Value Ref Range eGFR 86 >=60 mL/min/1.73 m2 Basic metabolic panel Collection Time: 10/24/23 7:06 PM Result Value Ref Range Sodium 136 135 - 145 mmol/L Potassium, pl 3.7 3.3 - 4.9 mmol/L Chloride 104 97 - 110 mmol/L CO2 25 22 - 32 mmol/L Anion gap 7 2 - 15 mmol/L BUN 13 6 - 25 mg/dL Creatinine 0.94 0.80 - 1.30 mg/dL Glucose 126 70 - 199 mg/dL Calcium 8.1 (L) 8.5 - 10.3 mg/dL POCT glucose Collection Time: 10/24/23 7:42 PM Result Value Ref Range Glucose, POC 122 70 - 199 mg/dL Calcium, ionized Collection Time: 10/24/23 9:11 PM Result Value Ref Range Calcium, Ionized 4.38 (L) 4.50 - 5.10 mg/dL POCT glucose Collection Time: 10/24/23 11:45 PM Result Value Ref Range Glucose, POC 141 70 - 199 mg/dL aPTT Collection Time: 10/25/23 3:14 AM Result Value Ref Range aPTT 47 (H) 28 - 38 sec POCT glucose Collection Time: 10/25/23 3:44 AM Result Value Ref Range Glucose, POC 102 70 - 199 mg/dL POCT glucose Collection Time: 10/25/23 6:58 AM Result Value Ref Range Glucose, POC 129 70 - 199 mg/dL CBC with auto differential Collection Time: 10/25/23 10:14 AM Result Value Ref Range WBC 13.3 (H) 3.8 - 9.9 K/cumm Hgb 8.2 (L) 13.0 - 17.5 g/dL Hct 24.1 (L) 38.9 - 50.3 % Plt 367 150 - 400 K/cumm MPV 11.0 9.1 - 12.3 fL RBC 2.57 (L) 4.30 - 5.80 M/cumm MCV 93.8 81.3 - 96.4 fL MCH 31.9 27.1 - 33.3 pg MCHC 34.0 32.3 - 35.7 g/dL RDW CV 12.4 11.1 - 14.9 % RDW SD 43.0 35.7 - 48.1 fL NRBC abs 0.00 0.00 - 0.01 K/cumm aPTT Collection Time: 10/25/23 10:14 AM Result Value Ref Range aPTT 60 (H) 28 - 38 sec Differential, auto Collection Time: 10/25/23 10:14 AM Result Value Ref Range Neutrophil abs 10.6 (H) 1.5 - 6.5 K/cumm Imm gran abs 0.1 0.0 - 0.1 K/cumm Lymphocyte abs 1.5 0.8 - 3.3 K/cumm Monocyte abs 0.9 (H) 0.2 - 0.8 K/cumm Eosinophil abs 0.2 0.0 - 0.5 K/cumm Basophil abs 0.1 0.0 - 0.1 K/cumm Neutrophil pct 79.5 % Imm gran pct 0.5 % Lymphocyte pct 11.3 % Monocyte pct 6.9 % Eosinophil pct 1.1 % Basophil pct 0.7 % POCT glucose Collection Time: 10/25/23 10:57 AM Result Value Ref Range Glucose, POC 195 70 - 199 mg/dL Assessment/Plan Principal Problem: Hydronephrosis with urinary obstruction due to renal calculus Active Problems: HTN (hypertension) Prostate cancer (HCC) Lumbar radiculopathy Ureteral colic UTI (urinary tract infection) Left perinephric collection, 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 S/P spinal fusion Cardiac arrest (HCC) Plan of care: Neurologic: #Acute on chronic pain - s/p surgery with chronic back pain - scheduled APAP, gabapentin, lidocaine patches - prn oxy, dilaudid - pain goal <4/10, continue to monitor closely and frequently reassess Add prn flexeril #Acute Encephalopathy, resolved #c/f seizure #SDH, subacute - Neurology following - 10/24: routine EE) left hemisphere slowing, and 2) moderate generalized slowing of the background - CTH w left frontal alvarado-white matter changes c/f prior stroke also with small subacute SDH - brain MRI ordered--see results above - continue keppra 1g BID - repeat CTH once therapeutic on heparin gtt to reassess SDH #DJD, chronic - 10/23: s/p open L4-L5 posterior spinal fusion with instrumentation, TLIF from left side, laminectomy, with autograft, allograft - Ortho Spine primary - lumbar spine precautions - PT/OT - monitor drain output Overall CAM-ICU: Negative (10/25/23 0900) Cardiovascular: - 10/24 TTE Mild-moderate RV cavity enlargement with Terrell sign. Overall, normal RV function (TAPSE 2.5 cm). Estimated PA systolic pressure 40+RA(8)mmHg. No valvular abnormality noted. LV cavity size is normal with normal systolic function. LVEF70%. Grade I diastolic function with normal mean LA pressure. Normal Inferior vena cava. Normal aorta. No prior study. #s/p cardiac arrest - Bilateral PE on CT - EKG NSR without ST changes - TTE as above Heparin CIVI #HTN - Holding home ibersartan Pulmonary: #Acute Respiratory Insufficiency, resolved #bilateral rib fractures - Bilateral rib fractures following CPR - currently on RA - Pulm hygiene, SpO2 goal >92%, IS, PT/OT #Bilateral pulmonary emboli - 10/23 CTPE: Acute pulmonary emboli involving the distal right and left main pulmonary arteries extending into all bilateral lobar and multiple bilateral segmental pulmonary arteries. No CT evidenceof right heart strain. - Heparin gtt, no bolus - pulm hygiene GI: Diet: regular diet Bowel regimen: pericolace #GERD, chronic - continue PPI Endocrine: #Hyperglycemia, improved - likely stress related - 10/11 hgb a1c: 5.5 - ICU SSI Renal: - no active issues - BUN/Cr WNL - adequate UOP - continue to monitor I/O via harris-->DC today #left renal stones, POA - Urology following - 10/12: admitted to Medicine from ED w complicated E. Coli UTI w L ureteral stone - 10/13: L ureteral stent aborted by Urology - 10/14: L perc nephrostomy by IR - 10/18: return to OR with Urology for laser lithotripsy and removal of 2 ureteral stones, removal of nephrostomy tube, placement of L ureteral stent - Urology plans for repeat ureteroscopy in 2 months with possible stent removal - no indication for continued ABX per Urology Hematology: #ABLA - s/p surgical procedure - continue to monitor drain output closely-out 180 ml/day (60 ml) - no indication for transfusion ID: #leukocytosis - likely reactive postoperatively and post arrest WBC 13 (23) - remains afebrile - ancef x 9 doses post op #UTI, E. Coli, resolved - Admit since 10/12 for complex UTI - Urology placed L ureteral stent to stay in place for 3-4 weeks - Keflex therapy completed Antibiotics: - Vancomycin 1500 q12 (10/23-10/25 - Ancef 2000 q8 (10/23- x 9 doses - Keflex (10/19-) Cultures: - UA (10/11): E. Coli Intensive Care Unit Standards of Care: Restraints: DVT prophylaxis: SCDs Vascular access: PIVs Goals of care: Full code Blue AM Assessment and plan has been reviewed with attending and fellow. Luana Brady NP Procedures Cosigned by Avel Bourne MD at 10/26/2023 5:50 PM HOB MILL OPERATOR MILL OPERATOR MILL OPERATOR * Hayden Barton MD - 10/24/2023 6:26 PM CST Surgical ICU Daily Progress Team: Blue PM Subjective Hira Evans is a 73 y.o. male admitted on 10/12/2023 6:25 PM with chief complaint of seizure and cardiac arrest post PSF. PMH: DJD, prostate cancer s/p prostatectomy (2010), HTN Abbreviated Hospital Course: 10/12 presented to ED from preoperative anesthesia visit due to concerning UA 10/12 admitted to Medicine from ED w complicated E. Coli UTI w L ureteral stone 10/13 L ureteral stent aborted by Urology 10/14 L perc nephrostomy by IR 10/18 return to OR with Urology for laser lithotripsy and removal of 2 ureteral stones, removal of nephrostomy tube, placement of L ureteral stent 10/23: OR w Ortho Spine for open L4-L5 PSF, laminectomy, with autograft, allograft; at end of procedure noted to be shivering with right gaze deviation followed by generalized seizure and code in PACU 10/24 patient remains extubated. Interval History: 10/24 PM Per neuro: Follow-up MRI, nothing else to do guarding the EEG findings of left- sided hemispheres slowing. - advanced diet to full liquids - repleted K and Ca++ - Pain severe (rib fxs). Had to increase dilaudid and Oxy PRNs Objective Physical Exam: General: well nourished, well developed male in No Acute Distress Neuro: A&Ox4, follows commands, moves all extremities, LLE weakness present, awake and alert prior to surgery, PERRL Cardiac: S1 and S2, Regular Rate and Rhythm, no M/G/R. Chest tender to palp. Pulmonary: Lungs clear to auscultation, respirations even/unlabored Abdominal: Soft/Nontender/Nondistended, normoactive bowel sounds Extremities: No edema, Pulses Present and Palpable Drains: Harris Wounds: See RN flowsheet Vital signs for last 24 hours: Temp: [36.5 ??C (97.7 ??F)-37.8 ??C (100 ??F)] 37.6 ??C (99.7 ??F) Pulse: [0-108] 83 BP: (95-151)/(54-73) 95/54 Resp: [14-23] 16 SpO2: [82 %-100 %] 91 % Arterial Line BP: (103-186)/(54-80) 186/70 Hemodynamics: MAP (mmHg): [63-85] 63 Pulmonary Support: O2 Therapy: None (Room air) O2 Del Method: High flow nasal cannula O2 Flow Rate (L/min): 2 L/min Intake/Output: Intake/Output Summary (Last 24 hours) at 10/24/2023 1826 Last data filed at 10/24/2023 1800 Gross per 24 hour Intake 4122.38 ml Output 2510 ml Net 1612.38 ml Lab/Radiology/Diagnostic Review: Laboratory review: reviewed the laboratory result(s) in the last 24 hours Recent Results (from the past 24 hour(s)) POC Blood Gas and Chemistries, Venous - Collection Time: 10/23/23 9:50 PM Result Value Ref Range pH, Arturo POC 6.99 (Critical) 7.32 - 7.43 pCO2, arturo POC 84 (Critical) 40 - 50 mmHg pO2, arturo POC 42 mmHg Na, POC 139 135 - 145 mmol/L K POC 5.4 (H) 3.3 - 4.9 mmol/L Cl, POC 103 97 - 110 mmol/L Ionized Ca, POC 4.70 4.50 - 5.10 mg/dL Glucose, POC 172 70 - 199 mg/dL Lactate, POC 9.2 (Critical) 0.7 - 2.2 mmol/L O2 Sat, Arturo POC (Crys) 48 % Base excess, POC -11.7 mmol/L Hct, POC 30.0 (L) 41.4 - 51.6 % Total Hb, POC 10.0 (L) 13.8 - 17.2 g/dL O2 Sat, Arturo POC (Calc) 48 % CBC without differential Collection Time: 10/23/23 9:52 PM Result Value Ref Range WBC 23.8 (H) 3.8 - 9.9 K/cumm Hgb 9.8 (L) 13.0 - 17.5 g/dL Hct 32.0 (L) 38.9 - 50.3 % Plt 458 (H) 150 - 400 K/cumm MPV 11.1 9.1 - 12.3 fL RBC 3.14 (L) 4.30 - 5.80 M/cumm MCV 101.9 (H) 81.3 - 96.4 fL MCH 31.2 27.1 - 33.3 pg MCHC 30.6 (L) 32.3 - 35.7 g/dL RDW CV 12.5 11.1 - 14.9 % RDW SD 46.9 35.7 - 48.1 fL NRBC abs 0.03 (H) 0.00 - 0.01 K/cumm Basic metabolic panel Collection Time: 10/23/23 9:52 PM Result Value Ref Range Sodium 143 135 - 145 mmol/L Potassium, pl 3.8 3.3 - 4.9 mmol/L Chloride 102 97 - 110 mmol/L CO2 20 (L) 22 - 32 mmol/L Anion gap 21 (H) 2 - 15 mmol/L BUN 12 6 - 25 mg/dL Creatinine 1.06 0.80 - 1.30 mg/dL Glucose 208 (H) 70 - 199 mg/dL Calcium 8.9 8.5 - 10.3 mg/dL eGFR Collection Time: 10/23/23 9:52 PM Result Value Ref Range eGFR 75 >=60 mL/min/1.73 m2 POC Blood Gas and Chemistries, Arterial - Collection Time: 10/23/23 10:07 PM Result Value Ref Range pH, Art POC 7.12 (Critical) 7.35 - 7.45 pCO2, Art POC 54 (H) 35 - 45 mmHg pO2, Art POC 287 (H) 83 - 108 mmHg Na, POC 137 135 - 145 mmol/L K POC 4.0 3.3 - 4.9 mmol/L Cl, POC 104 97 - 110 mmol/L Ionized Ca, POC 4.67 4.50 - 5.10 mg/dL Glucose, POC 235 (H) 70 - 199 mg/dL Lactate, POC 7.2 (Critical) 0.7 - 2.2 mmol/L SO2 (crys) arterial 100 (H) 90 - 95 % Base excess, POC -11.4 mmol/L HCO3, Art POC 16 (L) 20 - 30 mmol/L Hct, POC 29.0 (L) 41.4 - 51.6 % O2 Sat, Art POC (Calc) 100 % Total Hb, POC 9.5 (L) 13.8 - 17.2 g/dL POC Blood Gas and Chemistries, Arterial - Collection Time: 10/23/23 10:39 PM Result Value Ref Range pH, Art POC 7.37 7.35 - 7.45 pCO2, Art POC 38 35 - 45 mmHg pO2, Art POC 137 (H) 83 - 108 mmHg Na, POC 137 135 - 145 mmol/L K POC 4.0 3.3 - 4.9 mmol/L Cl, POC 107 97 - 110 mmol/L Ionized Ca, POC 4.58 4.50 - 5.10 mg/dL Glucose, POC 247 (H) 70 - 199 mg/dL Lactate, POC 4.6 (Critical) 0.7 - 2.2 mmol/L SO2 (crys) arterial 100 (H) 90 - 95 % Base excess, POC -3.0 mmol/L HCO3, Art POC 22 20 - 30 mmol/L Hct, POC 28.0 (L) 41.4 - 51.6 % O2 Sat, Art POC (Calc) 99 % Total Hb, POC 9.2 (L) 13.8 - 17.2 g/dL Protime-INR Collection Time: 10/23/23 11:02 PM Result Value Ref Range PT 13.9 (H) 10.3 - 13.7 sec INR 1.22 (H) 0.90 - 1.20 aPTT Collection Time: 10/23/23 11:02 PM Result Value Ref Range aPTT 25 (L) 28 - 38 sec Comprehensive metabolic panel Collection Time: 10/23/23 11:02 PM Result Value Ref Range Sodium 137 135 - 145 mmol/L Potassium, pl 4.1 3.3 - 4.9 mmol/L Chloride 102 97 - 110 mmol/L CO2 23 22 - 32 mmol/L Anion gap 12 2 - 15 mmol/L BUN 12 6 - 25 mg/dL Creatinine 1.07 0.80 - 1.30 mg/dL Glucose 245 (H) 70 - 199 mg/dL Calcium 8.3 (L) 8.5 - 10.3 mg/dL Bilirubin, total 0.6 0.1 - 1.2 mg/dL Protein, pl 5.9 (L) 6.5 - 8.5 g/dL Albumin 2.6 (L) 3.5 - 5.0 g/dL Alk phos 91 40 - 130 Units/L ALT 88 (H) 7 - 55 Units/L AST 83 (H) 10 - 50 Units/L Magnesium Collection Time: 10/23/23 11:02 PM Result Value Ref Range Magnesium 2.0 1.4 - 2.5 mg/dL Phosphorus Collection Time: 10/23/23 11:02 PM Result Value Ref Range Phosphorus, pl 4.6 (H) 2.3 - 4.5 mg/dL eGFR Collection Time: 10/23/23 11:02 PM Result Value Ref Range eGFR 74 >=60 mL/min/1.73 m2 Lipid panel Collection Time: 10/23/23 11:02 PM Result Value Ref Range Cholesterol 162 30 - 199 mg/dL Triglycerides 134 <=149 mg/dL HDL 34 (L) >=40 mg/dL LDL, calculated 101 <=129 mg/dL Non-HDL Cholesterol 128 mg/dL Chol/HDL ratio 5 CBC with auto differential Collection Time: 10/23/23 11:03 PM Result Value Ref Range WBC 26.7 (H) 3.8 - 9.9 K/cumm Hgb 9.0 (L) 13.0 - 17.5 g/dL Hct 27.3 (L) 38.9 - 50.3 % Plt 418 (H) 150 - 400 K/cumm MPV 11.3 9.1 - 12.3 fL RBC 2.88 (L) 4.30 - 5.80 M/cumm MCV 94.8 81.3 - 96.4 fL MCH 31.3 27.1 - 33.3 pg MCHC 33.0 32.3 - 35.7 g/dL RDW CV 12.4 11.1 - 14.9 % RDW SD 43.5 35.7 - 48.1 fL NRBC abs 0.00 0.00 - 0.01 K/cumm Calcium, ionized Collection Time: 10/23/23 11:03 PM Result Value Ref Range Calcium, Ionized 4.41 (L) 4.50 - 5.10 mg/dL Blood gas, arterial Collection Time: 10/23/23 11:03 PM Result Value Ref Range pH, Art 7.38 7.35 - 7.45 PCO2, Arterial 37 35 - 45 mmHg PO2, Arterial 133 (H) 83 - 108 mmHg HCO3 Art (Calculated) 22 20 - 30 mmol/L BE, art -3 mmol/L O2 Sat Art (Measured) 99 (H) 90 - 95 % Differential, auto Collection Time: 10/23/23 11:03 PM Result Value Ref Range Neutrophil abs 23.5 (H) 1.5 - 6.5 K/cumm Imm gran abs 0.9 (H) 0.0 - 0.1 K/cumm Lymphocyte abs 1.1 0.8 - 3.3 K/cumm Monocyte abs 1.1 (H) 0.2 - 0.8 K/cumm Eosinophil abs 0.1 0.0 - 0.5 K/cumm Basophil abs 0.1 0.0 - 0.1 K/cumm Neutrophil pct 88.2 % Imm gran pct 3.4 % Lymphocyte pct 3.9 % Monocyte pct 3.9 % Eosinophil pct 0.2 % Basophil pct 0.4 % Manual Differential Collection Time: 10/23/23 11:03 PM Result Value Ref Range Differential Auto Neutrophil abs 23.5 (H) 1.5 - 6.5 K/cumm Imm gran abs 0.9 (H) 0.0 - 0.1 K/cumm Lymphocyte abs 1.1 0.8 - 3.3 K/cumm Monocyte abs 1.1 (H) 0.2 - 0.8 K/cumm Eosinophil abs 0.1 0.0 - 0.5 K/cumm Basophil abs 0.1 0.0 - 0.1 K/cumm Neutrophil pct 88.2 % Imm gran pct 3.4 % Lymphocyte pct 3.9 % Monocyte pct 3.9 % Eosinophil pct 0.2 % Basophil pct 0.4 % RBC morphology Present (A) Polychromasia 3-7/HPF (A) Poikilocytosis Slight (A) Platelet estimate Adequate HIV 1/2 Antibody plus p24 Antigen Blood Collection Time: 10/24/23 12:20 AM Specimen: Blood Result Value Ref Range HIV 1/2 ab + p24 ag Nonreactive Nonreactive Protime-INR Collection Time: 10/24/23 12:20 AM Result Value Ref Range PT 13.7 10.3 - 13.7 sec INR 1.20 0.90 - 1.20 CBC without differential Collection Time: 10/24/23 12:20 AM Result Value Ref Range WBC 22.9 (H) 3.8 - 9.9 K/cumm Hgb 9.0 (L) 13.0 - 17.5 g/dL Hct 25.4 (L) 38.9 - 50.3 % Plt 366 150 - 400 K/cumm MPV 10.8 9.1 - 12.3 fL RBC 2.76 (L) 4.30 - 5.80 M/cumm MCV 92.0 81.3 - 96.4 fL MCH 32.6 27.1 - 33.3 pg MCHC 35.4 32.3 - 35.7 g/dL RDW CV 12.5 11.1 - 14.9 % RDW SD 41.8 35.7 - 48.1 fL NRBC abs 0.00 0.00 - 0.01 K/cumm aPTT Collection Time: 10/24/23 12:20 AM Result Value Ref Range aPTT 27 (L) 28 - 38 sec POCT glucose Collection Time: 10/24/23 12:20 AM Result Value Ref Range Glucose, POC 252 (H) 70 - 199 mg/dL POCT glucose Collection Time: 10/24/23 3:25 AM Result Value Ref Range Glucose, POC 180 70 - 199 mg/dL Lactate Collection Time: 10/24/23 3:38 AM Result Value Ref Range Lactate 0.9 0.7 - 2.0 mmol/L Troponin I high-sensitivity series (baseline, 2hr, 4hr, 6hr) Collection Time: 10/24/23 3:38 AM Result Value Ref Range Trop I hs 206 (Critical) <=35 ng/L Critical result callback Cardio chemistry Collection Time: 10/24/23 3:38 AM Result Value Ref Range Date Notified 20231024 Time Notified 451 Test name Trop I hs Called/Read Back Edwige Porras Credentials RN Called By SB ECG 12 lead Collection Time: 10/24/23 3:44 AM Result Value Ref Range Ventricular Rate EKG/Min 82 BPM Atrial Rate 82 BPM UT-Interval (MSEC) 166 ms QRS-Interval (MSEC) 78 ms QT-Interval (MSEC) 384 ms QTc 448 ms P [place] 34 degrees R [place] -30 degrees T [place] -13 degrees Diagnosis Normal sinus rhythm Left axis deviation Nonspecific ST abnormality Abnormal ECG No previous ECGs available Troponin I high-sensitivity 2-hour Collection Time: 10/24/23 5:38 AM Result Value Ref Range Trop I hs 195 (H) <=35 ng/L Trop I hs pct delta -5 % Trop I hs interp Equivocal aPTT Collection Time: 10/24/23 5:38 AM Result Value Ref Range aPTT 30 28 - 38 sec POCT glucose Collection Time: 10/24/23 7:31 AM Result Value Ref Range Glucose, POC 111 70 - 199 mg/dL Troponin I high-sensitivity Collection Time: 10/24/23 8:32 AM Result Value Ref Range Trop I hs 153 (H) <=35 ng/L Troponin I high-sensitivity 6-hour Collection Time: 10/24/23 9:39 AM Result Value Ref Range Trop I hs 133 (H) <=35 ng/L Trop I hs pct delta -35 (Critical) % Trop I hs interp Significant (Critical) POCT glucose Collection Time: 10/24/23 11:04 AM Result Value Ref Range Glucose, POC 121 70 - 199 mg/dL Transthoracic Echo (TTE) Complete W Doppler/CF Collection Time: 10/24/23 11:43 AM Result Value Ref Range LV EF 70 % aPTT Collection Time: 10/24/23 12:18 PM Result Value Ref Range aPTT 35 28 - 38 sec POCT glucose Collection Time: 10/24/23 2:58 PM Result Value Ref Range Glucose, POC 122 70 - 199 mg/dL Assessment/Plan Principal Problem: Hydronephrosis with urinary obstruction due to renal calculus Active Problems: HTN (hypertension) Prostate cancer (HCC) Lumbar radiculopathy Ureteral colic UTI (urinary tract infection) Left perinephric collection, 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 S/P spinal fusion Cardiac arrest (HCC) Plan of care: Neurologic: #Acute on chronic pain - s/p surgery with chronic back pain - scheduled APAP, gabapentin, lidocaine patches - prn oxy, dilaudid - pain goal <4/10, continue to monitor closely and frequently reassess #Acute Encephalopathy #c/f seizure #SDH, subacute - possible ictal state after perioperative seizure - Neurology following - continue keppra 1g BID - CTH w left frontal alvarado-white matter changes c/f prior stroke also with small subacute SDH - brain MRI ordered - 10/24: routine EE) left hemisphere slowing, and 2) moderate generalized slowing of the background - will repeat CTH once therapeutic on heparin gtt to reassess SDH - PER neuro: wait for MRI before additional recs #DJD, chronic - 10/23: s/p open L4-L5 posterior spinal fusion with instrumentation, TLIF from the left side, laminectomy, with autograft, allograft - Ortho Spine primary - lumbar spine precautions - PT/OT - monitor drain output - periop ABX x24 hours Overall CAM-ICU: Negative (10/24/23 0700) Cardiovascular: - 10/24 TTE Mild-moderate RV cavity enlargement with Terrell sign. Overall, normal RV function (TAPSE 2.5 cm). Estimated PA systolic pressure 40+RA(8)mmHg. No valvular abnormality noted. LV cavity size is normal with normal systolic function. LVEF70%. Grade I diastolic function with normal mean LA pressure. Normal Inferior vena cava. Normal aorta. No prior study. #s/p cardiac arrest - in context of sz post-operatively - Bilateral PE on CT - normotensive goals - EKG NSR without ST changes - TTE as above - troponins elevated but down trended - lactate cleared #HTN - Holding home ibersartan Pulmonary: #Acute Respiratory Insufficiency #bilateral rib fractures - Bilateral rib fractures following CPR - currently on RA - Pulm hygiene, L NCSpO2 goal >92%, IS, PT/OT #Bilateral pulmonary emboli - 10/23 CTPE: Acute pulmonary emboli involving the distal right and left main pulmonary arteries extending into all bilateral lobar and multiple bilateral segmental pulmonary arteries. No CT evidenceof right heart strain. - Heparin gtt, no bolus (given small bilateral subdural hemorrhage) - pulm hygiene GI: Diet: Clear liquids Bowel regimen: pericolace #GERD, chronic - continue PPI Endocrine: #Hyperglycemia - likely stress related - 10/11 hgb a1c: 5.5 -BG 245 on admission to SICU - per chart review Formerly took Mounjaro, no longer taking - ICU SSI Renal: - no active issues - BUN/Cr WNL - adequate UOP - continue to monitor I/O via harris #left renal stones, POA - Urology following - 10/12: admitted to Medicine from ED w complicated E. Coli UTI w L ureteral stone - 10/13: L ureteral stent aborted by Urology - 10/14: L perc nephrostomy by IR - 10/18: return to OR with Urology for laser lithotripsy and removal of 2 ureteral stones, removal of nephrostomy tube, placement of L ureteral stent - Urology plans for repeat ureteroscopy in 2 months with possible stent removal - no indication for continued ABX per Urology Hematology: #ABLA - s/p surgical procedure - continue to monitor drain output closely - no indication for transfusion , no s/sx bleeding ID: #leukocytosis - likely reactive postoperatively and post arrest - pt remains afebrile - currently on periop vanc/ancef #UTI, E. Coli, resolved - Admit since 10/12 for complex UTI - Urology placed L ureteral stent to stay in place for 3-4 weeks - Keflex therapy completed Antibiotics: - prophylactic surgical antibiotics: - Vancomycin 1500 q12 (10/23- - Ancef 2000 q8 (10/23- - Keflex (10/19-) Cultures: - UA (10/11): E. Coli Intensive Care Unit Standards of Care: Restraints: DVT prophylaxis: SCDs Vascular access: PIVs Goals of care: Full code Blue PM Assessment and plan has been reviewed with attending and fellow. Hayden Barton MD Procedures Cosigned by Wilder Arceo Jr., MD at 10/25/2023 3:43 AM HOB MILL OPERATOR MILL OPERATOR MILL OPERATOR * Javad Sow, PT - 10/24/2023 12:03 PM CST Physical Therapy 10/24/23 1203 General PT Missed Visit Reason Family declined (request to allow patient to sleep) MILL OPERATOR * Dari Dickens [facility] - 10/24/2023 10:51 AM CST Patient profile has been reviewed by clinical pharmacy billing adjudicator on 10/24/2023. Case reviewed on rounds with multidisciplinary team or outside of rounds with prescribers as necessary. Additional significant interventions or issues related to ongoing monitoring are listed below as appropriate. Recommendations: -Reorder SSI with SICU high -Start apap 1000 mg q6h -Resume home pantoprazole and tamsulosin -Switch keppra from IV to PO - Current Facility-Administered Medications: [Held by Provider] baclofen (LIORESAL) tablet 5 mg, 5 mg, oral, Q8H CAMMY, Oneyda Foley NP Carrier Fluids for Secondary Infusion - 0.9% Sodium Chloride, 30 mL, intravenous, PRN, Oneyda Foley NP Carrier Fluids for Secondary Infusion - 0.9% Sodium Chloride, 30 mL, intravenous, PRN, Chichi Reyes MD Carrier Fluids for Secondary Infusion - 0.9% Sodium Chloride, 30 mL, intravenous, PRN, Marychuy Sweet NP ceFAZolin (ANCEF) 2,000 mg/20 mL in sterile water (premix) 2,000 mg, 2,000 mg, intravenous, Q8H Luis CHAWLA Stacy Nicole, NP, 2,000 mg at 10/24/23 0451 dextrose gel in packet 15 g, 15 g, oral, Q15 Min PRN OR dextrose (D10W) 10% bolus 250 mL, 250 mL, intravenous, Q15 Min PRN, Too Garcia MD [Held by Provider] dilTIAZem XR (CARDIZEM CD,DILACOR XR) 24 hour capsule 240 mg, 240 mg, oral, BID,Nasir Manzanares MD, 240 mg at 10/23/23 0941 gabapentin (NEURONTIN) capsule 300 mg, 300 mg, oral, Q8H [facility], Amos Langley NP glucagon injection 1 mg, 1 mg, intramuscular, Q30 Min PRN, Too Garcia MD heparin in 0.9% sodium chloride 25,000 unit/250 mL infusion (premix), 0-33 Units/kg/hr, intravenous, Titrated, Chichi Reyes MD, Last Rate: 12.59 mL/hr at 10/24/23 0700, 14.1 Units/kg/hrat 10/24/23 0700 HYDROmorphone (DILAUDID) injection 0.2 mg, 0.2 mg, intravenous, Q2H PRN, Chichi Reyes MD, 0.2 mg at 10/24/23 0929 insulin lispro (HumaLOG, ADMELOG) 100 unit/mL injection 0-10 Units, 0-10 Units, subcutaneous, Q4H [facility]Jose Shawn Poya, MD, 2 Units at 10/24/23 0451 levETIRAcetam (KEPPRA) 1,000 mg/100 mL in sodium chloride (premix) 1,000 mg, 1,000 mg, intravenous,Q12H [facility]ric Nneoma Stephanie, MD, 1,000 mg at 10/24/23 0936 [Held by Provider] multivit gnluvaju-gnut-PW-calcium (THERA-M) tablet 1 tablet, 1 tablet, oral, Daily, Oneyda Foley NP naloxone (NARCAN) 0.4 mg/mL injection 0.04-0.4 mg, 0.04-0.4 mg, intravenous, Q10 Min PRN, Nasir Manzanares MD ondansetron (ZOFRAN) injection 4 mg, 4 mg, intravenous, Q6H PRN, Chichi Reyes MD oxyCODONE (ROXICODONE) tablet 5 mg, 5 mg, oral, Q4H PRN, Avel Bourne MD, 5 mg at 10/24/23 1020 senna-docusate (PERICOLACE) 8.6-50 mg per tablet 2 tablet, 2 tablet, oral, BID, Rob Langley, CARLA sodium chloride 0.9% flush 0.5-20 mL, 0.5-20 mL, intra-catheter, Q8H CAMMY, Oneyda Foley NP, 10 mL at 10/24/23 0500 sodium chloride 0.9% flush 0.5-20 mL, 0.5-20 mL, intra-catheter, PRN, Oneyda Foley NP sodium chloride 0.9% flush 0.5-20 mL, 0.5-20 mL, intra-catheter, Q8H CAMMY, Chichi Reyes MD, 10 mL at 10/24/23 0500 sodium chloride 0.9% flush 0.5-20 mL, 0.5-20 mL, intra-catheter, PRN, Chichi Reyes MD sodium chloride 0.9% flush 0.5-20 mL, 0.5-20 mL, intra-catheter, PRN, Marychuy Sweet NP sodium chloride 0.9% infusion, 3 mL/hr, intravenous, Continuous, Chichi Reyes MD, Last Rate: 3 mL/hr at 10/24/23 0151, 3 mL/hr at 10/24/23 0151 [Held by Provider] tamsulosin (FLOMAX) extended release capsule 0.8 mg, 0.8 mg, oral, Daily with dinner, Nasir Manzanares MD, 0.8 mg at 10/22/23 1832 vancomycin 1500 mg/515 mL in sodium chloride 0.9% (premix) 1,500 mg, 1,500 mg, intravenous, Q12H, Oneyda Foley NP Gabrielle Gibson, RPh, PharmD, BCPS, BCCCP MILL OPERATOR * Rob Langley NP - 10/24/2023 6:48 AM CSTAssociated Order(s): Critical Care Post-Procedure Diagnose(s): Cardiac arrest (HCC) Surgical ICU Daily Progress Team: Blue GREGORIA Subjective Hira Evans is a 73 y.o. male admitted on 10/12/2023 6:25 PM with chief complaint of seizure and cardiac arrest post PSF. PMH: DJD, prostate cancer s/p prostatectomy (2010), HTN Abbreviated Hospital Course: 10/12 presented to ED from preoperative anesthesia visit due to concerning UA 10/12 admitted to Medicine from ED w complicated E. Coli UTI w L ureteral stone 10/13 L ureteral stent aborted by Urology 10/14 L perc nephrostomy by IR 10/18 return to OR with Urology for laser lithotripsy and removal of 2 ureteral stones, removal of nephrostomy tube, placement of L ureteral stent 10/23: OR w Ortho Spine for open L4-L5 PSF, laminectomy, with autograft, allograft; at end of procedure noted to be shivering with right gaze deviation followed by generalized seizure and code in PACU Interval History: - F/u labs & imaging - TTE EF 70%, positive McConnel sign - bMRI pending - EEG report pending - Pain reg augmentation - Okay for PT/OT per surg - Advance diet - lumbar spine precautions - repeat ureteroscopy in 2 months with Urology Objective Physical Exam: General: well nourished, well developed male in No Acute Distress Neuro: A&Ox4, follows commands, moves all extremities, LLE weakness present prior to surgery, PERRL Cardiac: S1 and S2, Regular Rate and Rhythm, no M/G/R Pulmonary: Lungs clear to auscultation, respirations even/unlabored Abdominal: Soft/Nontender/Nondistended, normoactive bowel sounds Extremities: No edema, Pulses Present and Palpable Drains: Harris Wounds: See RN flowsheet Vital signs for last 24 hours: Temp: [36.5 ??C (97.7 ??F)-37.8 ??C (100 ??F)] 37.4 ??C (99.3 ??F) Pulse: [0-108] 86 BP: (95-151)/(54-73) 95/54 Resp: [14-23] 19 SpO2: [82 %-100 %] 98 % Arterial Line BP: (103-174)/(54-80) 145/71 Hemodynamics: MAP (mmHg): [63-85] 63 Pulmonary Support: O2 Therapy: None (Room air) O2 Del Method: High flow nasal cannula O2 Flow Rate (L/min): 2 L/min Intake/Output: Intake/Output Summary (Last 24 hours) at 10/24/2023 1719 Last data filed at 10/24/2023 1500 Gross per 24 hour Intake 4067.57 ml Output 2250 ml Net 1817.57 ml Lab/Radiology/Diagnostic Review: Laboratory review: reviewed the laboratory result(s) in the last 24 hours Recent Results (from the past 24 hour(s)) POC Blood Gas and Chemistries, Venous - Collection Time: 10/23/23 9:50 PM Result Value Ref Range pH, Arturo POC 6.99 (Critical) 7.32 - 7.43 pCO2, arturo POC 84 (Critical) 40 - 50 mmHg pO2, arturo POC 42 mmHg Na, POC 139 135 - 145 mmol/L K POC 5.4 (H) 3.3 - 4.9 mmol/L Cl, POC 103 97 - 110 mmol/L Ionized Ca, POC 4.70 4.50 - 5.10 mg/dL Glucose, POC 172 70 - 199 mg/dL Lactate, POC 9.2 (Critical) 0.7 - 2.2 mmol/L O2 Sat, Arturo POC (Crys) 48 % Base excess, POC -11.7 mmol/L Hct, POC 30.0 (L) 41.4 - 51.6 % Total Hb, POC 10.0 (L) 13.8 - 17.2 g/dL O2 Sat, Arturo POC (Calc) 48 % CBC without differential Collection Time: 10/23/23 9:52 PM Result Value Ref Range WBC 23.8 (H) 3.8 - 9.9 K/cumm Hgb 9.8 (L) 13.0 - 17.5 g/dL Hct 32.0 (L) 38.9 - 50.3 % Plt 458 (H) 150 - 400 K/cumm MPV 11.1 9.1 - 12.3 fL RBC 3.14 (L) 4.30 - 5.80 M/cumm MCV 101.9 (H) 81.3 - 96.4 fL MCH 31.2 27.1 - 33.3 pg MCHC 30.6 (L) 32.3 - 35.7 g/dL RDW CV 12.5 11.1 - 14.9 % RDW SD 46.9 35.7 - 48.1 fL NRBC abs 0.03 (H) 0.00 - 0.01 K/cumm Basic metabolic panel Collection Time: 10/23/23 9:52 PM Result Value Ref Range Sodium 143 135 - 145 mmol/L Potassium, pl 3.8 3.3 - 4.9 mmol/L Chloride 102 97 - 110 mmol/L CO2 20 (L) 22 - 32 mmol/L Anion gap 21 (H) 2 - 15 mmol/L BUN 12 6 - 25 mg/dL Creatinine 1.06 0.80 - 1.30 mg/dL Glucose 208 (H) 70 - 199 mg/dL Calcium 8.9 8.5 - 10.3 mg/dL eGFR Collection Time: 10/23/23 9:52 PM Result Value Ref Range eGFR 75 >=60 mL/min/1.73 m2 POC Blood Gas and Chemistries, Arterial - Collection Time: 10/23/23 10:07 PM Result Value Ref Range pH, Art POC 7.12 (Critical) 7.35 - 7.45 pCO2, Art POC 54 (H) 35 - 45 mmHg pO2, Art POC 287 (H) 83 - 108 mmHg Na, POC 137 135 - 145 mmol/L K POC 4.0 3.3 - 4.9 mmol/L Cl, POC 104 97 - 110 mmol/L Ionized Ca, POC 4.67 4.50 - 5.10 mg/dL Glucose, POC 235 (H) 70 - 199 mg/dL Lactate, POC 7.2 (Critical) 0.7 - 2.2 mmol/L SO2 (crys) arterial 100 (H) 90 - 95 % Base excess, POC -11.4 mmol/L HCO3, Art POC 16 (L) 20 - 30 mmol/L Hct, POC 29.0 (L) 41.4 - 51.6 % O2 Sat, Art POC (Calc) 100 % Total Hb, POC 9.5 (L) 13.8 - 17.2 g/dL POC Blood Gas and Chemistries, Arterial - Collection Time: 10/23/23 10:39 PM Result Value Ref Range pH, Art POC 7.37 7.35 - 7.45 pCO2, Art POC 38 35 - 45 mmHg pO2, Art POC 137 (H) 83 - 108 mmHg Na, POC 137 135 - 145 mmol/L K POC 4.0 3.3 - 4.9 mmol/L Cl, POC 107 97 - 110 mmol/L Ionized Ca, POC 4.58 4.50 - 5.10 mg/dL Glucose, POC 247 (H) 70 - 199 mg/dL Lactate, POC 4.6 (Critical) 0.7 - 2.2 mmol/L SO2 (crys) arterial 100 (H) 90 - 95 % Base excess, POC -3.0 mmol/L HCO3, Art POC 22 20 - 30 mmol/L Hct, POC 28.0 (L) 41.4 - 51.6 % O2 Sat, Art POC (Calc) 99 % Total Hb, POC 9.2 (L) 13.8 - 17.2 g/dL Protime-INR Collection Time: 10/23/23 11:02 PM Result Value Ref Range PT 13.9 (H) 10.3 - 13.7 sec INR 1.22 (H) 0.90 - 1.20 aPTT Collection Time: 10/23/23 11:02 PM Result Value Ref Range aPTT 25 (L) 28 - 38 sec Comprehensive metabolic panel Collection Time: 10/23/23 11:02 PM Result Value Ref Range Sodium 137 135 - 145 mmol/L Potassium, pl 4.1 3.3 - 4.9 mmol/L Chloride 102 97 - 110 mmol/L CO2 23 22 - 32 mmol/L Anion gap 12 2 - 15 mmol/L BUN 12 6 - 25 mg/dL Creatinine 1.07 0.80 - 1.30 mg/dL Glucose 245 (H) 70 - 199 mg/dL Calcium 8.3 (L) 8.5 - 10.3 mg/dL Bilirubin, total 0.6 0.1 - 1.2 mg/dL Protein, pl 5.9 (L) 6.5 - 8.5 g/dL Albumin 2.6 (L) 3.5 - 5.0 g/dL Alk phos 91 40 - 130 Units/L ALT 88 (H) 7 - 55 Units/L AST 83 (H) 10 - 50 Units/L Magnesium Collection Time: 10/23/23 11:02 PM Result Value Ref Range Magnesium 2.0 1.4 - 2.5 mg/dL Phosphorus Collection Time: 10/23/23 11:02 PM Result Value Ref Range Phosphorus, pl 4.6 (H) 2.3 - 4.5 mg/dL eGFR Collection Time: 10/23/23 11:02 PM Result Value Ref Range eGFR 74 >=60 mL/min/1.73 m2 Lipid panel Collection Time: 10/23/23 11:02 PM Result Value Ref Range Cholesterol 162 30 - 199 mg/dL Triglycerides 134 <=149 mg/dL HDL 34 (L) >=40 mg/dL LDL, calculated 101 <=129 mg/dL Non-HDL Cholesterol 128 mg/dL Chol/HDL ratio 5 CBC with auto differential Collection Time: 10/23/23 11:03 PM Result Value Ref Range WBC 26.7 (H) 3.8 - 9.9 K/cumm Hgb 9.0 (L) 13.0 - 17.5 g/dL Hct 27.3 (L) 38.9 - 50.3 % Plt 418 (H) 150 - 400 K/cumm MPV 11.3 9.1 - 12.3 fL RBC 2.88 (L) 4.30 - 5.80 M/cumm MCV 94.8 81.3 - 96.4 fL MCH 31.3 27.1 - 33.3 pg MCHC 33.0 32.3 - 35.7 g/dL RDW CV 12.4 11.1 - 14.9 % RDW SD 43.5 35.7 - 48.1 fL NRBC abs 0.00 0.00 - 0.01 K/cumm Calcium, ionized Collection Time: 10/23/23 11:03 PM Result Value Ref Range Calcium, Ionized 4.41 (L) 4.50 - 5.10 mg/dL Blood gas, arterial Collection Time: 10/23/23 11:03 PM Result Value Ref Range pH, Art 7.38 7.35 - 7.45 PCO2, Arterial 37 35 - 45 mmHg PO2, Arterial 133 (H) 83 - 108 mmHg HCO3 Art (Calculated) 22 20 - 30 mmol/L BE, art -3 mmol/L O2 Sat Art (Measured) 99 (H) 90 - 95 % Differential, auto Collection Time: 10/23/23 11:03 PM Result Value Ref Range Neutrophil abs 23.5 (H) 1.5 - 6.5 K/cumm Imm gran abs 0.9 (H) 0.0 - 0.1 K/cumm Lymphocyte abs 1.1 0.8 - 3.3 K/cumm Monocyte abs 1.1 (H) 0.2 - 0.8 K/cumm Eosinophil abs 0.1 0.0 - 0.5 K/cumm Basophil abs 0.1 0.0 - 0.1 K/cumm Neutrophil pct 88.2 % Imm gran pct 3.4 % Lymphocyte pct 3.9 % Monocyte pct 3.9 % Eosinophil pct 0.2 % Basophil pct 0.4 % Manual Differential Collection Time: 10/23/23 11:03 PM Result Value Ref Range Differential Auto Neutrophil abs 23.5 (H) 1.5 - 6.5 K/cumm Imm gran abs 0.9 (H) 0.0 - 0.1 K/cumm Lymphocyte abs 1.1 0.8 - 3.3 K/cumm Monocyte abs 1.1 (H) 0.2 - 0.8 K/cumm Eosinophil abs 0.1 0.0 - 0.5 K/cumm Basophil abs 0.1 0.0 - 0.1 K/cumm Neutrophil pct 88.2 % Imm gran pct 3.4 % Lymphocyte pct 3.9 % Monocyte pct 3.9 % Eosinophil pct 0.2 % Basophil pct 0.4 % RBC morphology Present (A) Polychromasia 3-7/HPF (A) Poikilocytosis Slight (A) Platelet estimate Adequate HIV 1/2 Antibody plus p24 Antigen Blood Collection Time: 10/24/23 12:20 AM Specimen: Blood Result Value Ref Range HIV 1/2 ab + p24 ag Nonreactive Nonreactive Protime-INR Collection Time: 10/24/23 12:20 AM Result Value Ref Range PT 13.7 10.3 - 13.7 sec INR 1.20 0.90 - 1.20 CBC without differential Collection Time: 10/24/23 12:20 AM Result Value Ref Range WBC 22.9 (H) 3.8 - 9.9 K/cumm Hgb 9.0 (L) 13.0 - 17.5 g/dL Hct 25.4 (L) 38.9 - 50.3 % Plt 366 150 - 400 K/cumm MPV 10.8 9.1 - 12.3 fL RBC 2.76 (L) 4.30 - 5.80 M/cumm MCV 92.0 81.3 - 96.4 fL MCH 32.6 27.1 - 33.3 pg MCHC 35.4 32.3 - 35.7 g/dL RDW CV 12.5 11.1 - 14.9 % RDW SD 41.8 35.7 - 48.1 fL NRBC abs 0.00 0.00 - 0.01 K/cumm aPTT Collection Time: 10/24/23 12:20 AM Result Value Ref Range aPTT 27 (L) 28 - 38 sec POCT glucose Collection Time: 10/24/23 12:20 AM Result Value Ref Range Glucose, POC 252 (H) 70 - 199 mg/dL POCT glucose Collection Time: 10/24/23 3:25 AM Result Value Ref Range Glucose, POC 180 70 - 199 mg/dL Lactate Collection Time: 10/24/23 3:38 AM Result Value Ref Range Lactate 0.9 0.7 - 2.0 mmol/L Troponin I high-sensitivity series (baseline, 2hr, 4hr, 6hr) Collection Time: 10/24/23 3:38 AM Result Value Ref Range Trop I hs 206 (Critical) <=35 ng/L Critical result callback Cardio chemistry Collection Time: 10/24/23 3:38 AM Result Value Ref Range Date Notified [id number] Time Notified 451 Test name Trop I hs Called/Read Back Edwige Porras Credentials RN Called By SB ECG 12 lead Collection Time: 10/24/23 3:44 AM Result Value Ref Range Ventricular Rate EKG/Min 82 BPM Atrial Rate 82 BPM UT-Interval (MSEC) 166 ms QRS-Interval (MSEC) 78 ms QT-Interval (MSEC) 384 ms QTc 448 ms P [place] 34 degrees R [place] -30 degrees T [place] -13 degrees Diagnosis Normal sinus rhythm Left axis deviation Nonspecific ST abnormality Abnormal ECG No previous ECGs available Troponin I high-sensitivity 2-hour Collection Time: 10/24/23 5:38 AM Result Value Ref Range Trop I hs 195 (H) <=35 ng/L Trop I hs pct delta -5 % Trop I hs interp Equivocal aPTT Collection Time: 10/24/23 5:38 AM Result Value Ref Range aPTT 30 28 - 38 sec POCT glucose Collection Time: 10/24/23 7:31 AM Result Value Ref Range Glucose, POC 111 70 - 199 mg/dL Troponin I high-sensitivity Collection Time: 10/24/23 8:32 AM Result Value Ref Range Trop I hs 153 (H) <=35 ng/L Troponin I high-sensitivity 6-hour Collection Time: 10/24/23 9:39 AM Result Value Ref Range Trop I hs 133 (H) <=35 ng/L Trop I hs pct delta -35 (Critical) % Trop I hs interp Significant (Critical) POCT glucose Collection Time: 10/24/23 11:04 AM Result Value Ref Range Glucose, POC 121 70 - 199 mg/dL Transthoracic Echo (TTE) Complete W Doppler/CF Collection Time: 10/24/23 11:43 AM Result Value Ref Range LV EF 70 % aPTT Collection Time: 10/24/23 12:18 PM Result Value Ref Range aPTT 35 28 - 38 sec POCT glucose Collection Time: 10/24/23 2:58 PM Result Value Ref Range Glucose, POC 122 70 - 199 mg/dL Assessment/Plan Principal Problem: Hydronephrosis with urinary obstruction due to renal calculus Active Problems: HTN (hypertension) Prostate cancer (HCC) Lumbar radiculopathy Ureteral colic UTI (urinary tract infection) Left perinephric collection, 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 S/P spinal fusion Cardiac arrest (HCC) Plan of care: Neurologic: #Acute on chronic pain - s/p surgery with chronic back pain - scheduled APAP, gabapentin, lidocaine patches - prn oxy, dilaudid - pain goal <4/10, continue to monitor closely and frequently reassess #Acute Encephalopathy #c/f seizure #SDH, subacute - possible ictal state after perioperative seizure - Neurology following - continue keppra 1g BID - CTH w left frontal alvarado-white matter changes c/f prior stroke also with small subacute SDH - brain MRI ordered - 10/24: routine EE) left hemisphere slowing, and 2) moderate generalized slowing of the background - will repeat CTH once therapeutic on heparin gtt to reassess SDH - appreciate additional Neurology recs #DJD, chronic - 10/23: s/p open L4-L5 posterior spinal fusion with instrumentation, TLIF from the left side, laminectomy, with autograft, allograft - Ortho Spine primary - lumbar spine precautions - PT/OT - monitor drain output - periop ABX x24 hours Overall CAM-ICU: Negative (10/24/23 0700) Cardiovascular: - 10/24 TTE Mild-moderate RV cavity enlargement with Terrell sign. Overall, normal RV function (TAPSE 2.5 cm). Estimated PA systolic pressure 40+RA(8)mmHg. No valvular abnormality noted. LV cavity size is normal with normal systolic function. LVEF70%. Grade I diastolic function with normal mean LA pressure. Normal Inferior vena cava. Normal aorta. No prior study. #s/p cardiac arrest - Bilateral PE on CT - normotensive goals - EKG NSR without ST changes - TTE as above - troponins elevated but down trending, d/c trend - lactate cleared, d/c trend #HTN - Holding home ibersartan Pulmonary: #Acute Respiratory Insufficiency #bilateral rib fractures - Bilateral rib fractures following CPR - currently on RA - Pulm hygiene, SpO2 goal >92%, IS, PT/OT #Bilateral pulmonary emboli - 10/23 CTPE: Acute pulmonary emboli involving the distal right and left main pulmonary arteries extending into all bilateral lobar and multiple bilateral segmental pulmonary arteries. No CT evidenceof right heart strain. - Heparin gtt, no bolus - pulm hygiene GI: Diet: regular diet Bowel regimen: pericolace #GERD, chronic - continue PPI Endocrine: #Hyperglycemia - likely stress related - 10/11 hgb a1c: 5.5 -BG 245 on admission to SICU - per chart review Formerly took Mounjaro, no longer taking - ICU SSI Renal: - no active issues - BUN/Cr WNL - adequate UOP - continue to monitor I/O via harris #left renal stones, POA - Urology following - 10/12: admitted to Medicine from ED w complicated E. Coli UTI w L ureteral stone - 10/13: L ureteral stent aborted by Urology - 10/14: L perc nephrostomy by IR - 10/18: return to OR with Urology for laser lithotripsy and removal of 2 ureteral stones, removal of nephrostomy tube, placement of L ureteral stent - Urology plans for repeat ureteroscopy in 2 months with possible stent removal - no indication for continued ABX per Urology Hematology: #ABLA - s/p surgical procedure - continue to monitor drain output closely - no indication for transfusion , no s/sx bleeding ID: #leukocytosis - likely reactive postoperatively and post arrest - pt remains afebrile - currently on periop vanc/ancef #UTI, E. Coli, resolved - Admit since 10/12 for complex UTI - Urology placed L ureteral stent to stay in place for 3-4 weeks - Keflex therapy completed Antibiotics: - Vancomycin 1500 q12 (10/23- - Ancef 2000 q8 (10/23- - Keflex (10/19-) Cultures: - UA (10/11): E. Coli Intensive Care Unit Standards of Care: Restraints: DVT prophylaxis: SCDs Vascular access: PIVs Goals of care: Full code Blue AM Assessment and plan has been reviewed with attending and fellow. Rob Langley NP Critical Care Performed by: Rob Langley NP Authorized by: Rob Langley NP CRITICAL CARE: Team: SICU BLUE Shift: AM Level of Billing: Critical Care My time spent with this patient was 90 minutes: Critical Provider Statement: I have seen and examined the patient on this day of service. I have reviewed and confirmed the history, physical exam, laboratory and radiologic data as documented in thesigned ICU note. I have reviewed and discussed my treatment plan with the ICU team and other medical/telesales consultant staff, making frequent assessments and decisions [...] or life-threatening deterioration of the following conditions: Cosigned by Avel Bourne MD at 10/24/2023 6:17 PM HOB MILL OPERATOR MILL OPERATOR MILL OPERATOR MILL OPERATOR * Ata Marquez MD - 10/24/2023 5:56 AM CST Orthopaedic Spine Service Daily Progress Note Admit Date: 10/12/2023 Hospital Day: 11 [place] Dx: L4-L5 Radiculopathy, PMH: UTI, HTN, prostate CA s/p prostatectomy (~2010), GERD, obesity, melanoma (2007), CKD Proc: FUSION SPINAL - POSTERIOR LUMBAR/THORACIC WITH INSTRUMENTATION: L4-5 open posterior spinal fusion with instrumentation, L4-5 transforaminal lumbar interbody fusion, L4-5 direct decompression, spinal cord monitoring, autograft, allograft LAMINECTOMY LUMBAR - POSTERIOR SPINAL CORD MONITORING Exam: Sensation is intact to light touch throughout bilateral lower extremities. Right lower extremity: 5/5 strength iliopsoas, quadriceps, gastrocsoleus, tibialis anterior, EHL. Left lower extremity: 3/5 strength iliopsoas; 2/5 strength quadriceps; 4/5 strength gastrocsoleus, tibialis anterior, EHL. : 1950 Admit: 10/12/2023 Interval 10/24: AF, hypertensive overnight. Extubated on 2L HFNC. Otherwise VSS. CTA with acute PE in distalright mainstem bronchus and left main pulmonary arteries. On heparin gtt. Also acute right 2nd-6 and left 2nd-[address] head neg for acute stroke, MRI brain pending. H/H 9.0/22.9, WBC 22.9, Trops high 206, trending. Lactate 0.9. Drain 60 since surgery. Will continue resuscitation in ICU. Edited by: Oneyda Foley NP at 10/23/2023 4995 Objective Vitals: 24hr Min/Max: Temp Min: 36.5 ??C (97.7 ??F) Max: 37.6 ??C (99.7 ??F) Pulse Min: 0 Max: 108 BP Min: 95/54 Max: 151/73 Resp Min: 14 Max: 23 SpO2 Min: 82 % Max: 100 % I/O last 2 completed shifts: In: 100 [IV Piggyback:100] Out: 1775 [Urine:1725; Blood:50] I/O this shift: In: 3274.4 [I.V.:1514.3; IV Piggyback:1760] Out: 1475 [Urine:1315; Drains:60; Blood:100] Physical Exam: Gen: no acute distress Neuro: A&Ox3 Dressing: clean/dry/intact Wound Vac(s): Not applicable Hemo Vac(s): Holding suction nicely, no apparent leaks Motor: Muscle Strength Right Left Shoulder abduction (C5) 4/5 5/5 Elbow flexion (C5/6) 4/5 5/5 Elbow extension (C7) 4/5 5/5 Wrist extension (C6) 5/5 5/5 Wrist flexion (C7) 4/5 5/5 Breast Puller (C8) 4/5 5/5 Interosseous of hand (T1) 5/5 5/5 Iliopsoas (L2/3) 4/5 3/5 Quadriceps (L3/4) 4/5 3/5 Tibialis anterior (L4/5) 4/5 4/5 Extensor hallicus longus (L5) 4/5 4/5 Gastrocsoleus complex (S1) 4/5 4/5 Sensation Left upper extremity: SILT C5 to T1 dermatomes. Right upper extremity: SILT C5 to T1 dermatomes. Left lower extremity: SILT L2 to S1 dermatomes. Right lower extremity: SILT L2 to S1 dermatomes. Vascular: Bilateral Upper Extremity: 2+ radial pulse, fingers WWP Bilateral Lower Extremity: 2+ DP pulse, toes WWP Lab/Diagnostic Review: Recent Labs Lab Units 10/24/23 0325 10/24/23 0020 10/23/23 2303 10/23/23 2302 10/23/23 2302 SODIUM mmol/L -- -- -- -- 137 POTASSIUM PLASMA mmol/L -- -- -- -- 4.1 CHLORIDE mmol/L -- -- -- -- 102 CO2 mmol/L -- -- -- -- 23 ANIONGAP mmol/L -- -- -- -- 12 GLUCOSE mg/dL -- -- -- -- 245* POC GLUCOSE MONITOR mg/dL 180 252* -- < > -- BUN SERUM mg/dL -- -- -- -- 12 CREATININE mg/dL -- -- -- -- 1.07 CALCIUM mg/dL -- -- -- -- 8.3* ALBUMIN g/dL -- -- -- -- 2.6* ALK PHOS Units/L -- -- -- -- 91 ALT Units/L -- -- -- -- 88* AST Units/L -- -- -- -- 83* BILIRUBIN TOTAL mg/dL -- -- -- -- 0.6 WBC K/cumm -- 22.9* 26.7* -- -- HEMOGLOBIN g/dL -- 9.0* 9.0* -- -- HEMATOCRIT % -- 25.4* 27.3* -- -- PLATELETS K/cumm -- 366 418* -- -- NEUTROS PCT % -- -- 88.2 88.2 -- -- LYMPHS PCT % -- -- 3.9 3.9 -- -- MONOS PCT % -- -- 3.9 3.9 -- -- EOS PCT % -- -- 0.2 0.2 -- -- APTT sec -- 27* -- -- 25* INR -- 1.20 -- -- 1.22* < > = values in this interval [...] For susceptibility results, refer to accession number [id number] on the urine culture from 10/11/23 MICROBIOLOGY (.) 10/11/2023 Final Report: Greater than or equal to 100,000 colonies/mL of Escherichia coli Greater than or equal to 100,000 colonies/mL of Escherichia coli #2 MICROBIOLOGY 03/15/2023 Final Report: Less than 100,000 colonies/mL (clinically insignificant growth based on current clinical standards) MICROBIOLOGY Final Report: No growth 09/24/2019 Assessement: Hira Evans is a 73 y.o. male s/p L4-5 open posterior spinal fusion with instrumentation, L4-5 transforaminal lumbar interbody fusion, L4-5 direct decompression. His immediate psot-op course was complicated by seizure and acute PE. Plan: - Continue care in ICU, care appreciated. - follow-up MRI brain - Does not need lumbar brace; maintain lumbar spine precautions - PT/OT when able - Okay for toradol x3 doses with (pantoprazole) - Dressing on for 5 days (comes down 10/28) and then will be switched to island dressing Ata Marquez M.D. Department of Orthopaedic Surgery, PGY-3 [facility] in [place]/[facility] Please use Melon to page/call the appropriate Orthopaedic Surgery Team/Resident if questions or concerns Please call with questions during daytime. See below for overnight issues. If you know the resident's name on the appropriate orthopaedic surgery team, please use Melon to page resident directly. If questions arise and the appropriate resident can't be reached or you are calling overnight, please contact [phone] ([place]- 7:30 PM - 6:30 AM - Floor Resident) or [phone] (24 hours/day - Consult Resident) Cosigned by Hayder Vu MD at 10/24/2023 1:48 PM HOB MILL OPERATOR MILL OPERATOR MILL OPERATOR Associated attestation - Hayder Vu Jr., MD - 10/24/2023 1:48 PM HOB MILL OPERATOR Attending Attestation I have seen and examined the patient on 10/24/23 in the Hospital. I met him, his Phan, and their daughter at the bedside today. Remains in the SICU. He is alert and oriented x4 but is somnolent. Workup yesterday demonstrated bilateral PEs. Now on therapeutic heparin. Drain has put out 60cc since OR. Having some chest wall pain related to rib fractures. Detailed exam is limited by somnolent but grossly unchanged from preop. Plan for pain control, monitor drain output, antibiotics while drain remains in place. Further workup and care per SICU and consulting teams. Appreciate excellent care by all. Please call with any questions or concerns. Hayder Vu Jr., MD Sandblast Operator Department of Orthopaedic Surgery Division of Spine Surgery [facility] [place], [place] [employer] done by [employer]; therefore, variances and inaccuracies may occur. * Pipe Moseley MD - 10/23/2023 3:10 PM CST Daily Progress Note Division of Hospital Medicine Name: Hira Evans : 1950 Today's Date: October 23, 2023 Age: 73 y.o. male Admission: 10/12/2023 Bed: OR/- LOS: 10 days Subjective Chief complaint: urine infection Interval History NAEON, npo for spine surgery today by ortho Objective Scheduled Meds PRN Meds Infusions acetaminophen, 1,000 mg, oral, Once [Held by Provider] acyclovir, 400 mg, oral, BID ceFAZolin, 2,000 mg, intravenous, Once [JAN Hold] cephalexin, 500 mg, oral, QID [JAN Hold] dilTIAZem XR, 240 mg, oral, BID methadone, 15 mg, intravenous, Once [JAN Hold] pantoprazole DR, 40 mg, oral, Daily [JAN Hold] polyethylene glycol, 17 g, oral, Daily [JAN Hold] sodium chloride 0.9%, 0.5-20 mL, intra-catheter, Q8H CAMMY [JAN Hold] sodium chloride 0.9%, 0.5-20 mL, intra-catheter, Q8H CAMMY [JAN Hold] tamsulosin, 0.8 mg, oral, Daily with dinner vancomycin, 1,500 mg, intravenous, Once [JAN Hold] acetaminophen, 650 mg, oral, Q4H PRN [JAN Hold] sodium chloride 0.9%, 30 mL, intravenous, PRN [JAN Hold] sodium chloride 0.9%, 30 mL, intravenous, PRN [MAR Hold] HYDROmorphone, 0.2 mg, intravenous, Q4H PRN [Jan] hydrOXYzine, 25 mg, oral, BID PRN Lactated Ringer's, , , [JAN Hold] ondansetron ODT, 4 mg, oral, Q6H PRN OR [JAN Hold] ondansetron, 4 mg, intravenous, Q6H PRN [Jan] oxyCODONE, 5 mg, oral, Q4H PRN [Jan] ramelteon, 8 mg, oral, Nightly PRN [Jan] sodium chloride 0.9%, 0.5-20 mL, intra-catheter, PRN [Jan] sodium chloride 0.9%, 0.5-20 mL, intra-catheter, PRN Lactated Ringer's, Lactated Ringer's, 75 mL/hr Vitals Most Recent Vitals: T 36.8 ??C (98.2 ??F), HR 60, BP 135/73, RR 19, SpO2 94 %. 24hr Min/Max: Temp Min: 36.7 ??C (98.1 ??F) Max: 36.8 ??C (98.2 ??F) Pulse Min: 60 Max: 78 BP Min: 128/70 Max: 153/77 Resp Min: 14 Max: 23 SpO2 Min: 94 % Max: 100 % Intake/Output Summary (Last 24 hours) at 10/23/2023 1510 Last data filed at 10/23/2023 0650 Gross per 24 hour Intake -- Output 2125 ml Net -2125 ml Physical Exam Constitutional: NAD, well developed, well nourished Eyes: PERRL, EOMI, anicteric ENT: NCAT, oropharynx normal, moist mucus membranes Lungs: Clear to auscultation in all lung muñoz, unlabored Cardiovascular: RRR, normal S1 and S2, no murmurs, no JVD GI: Soft, non-tender, non-distended, bowel sounds +, no organomegaly Skin: No new rashes, lesions or bruises on visible skin Extremities: Normal without edema or cyanosis Neurologic: AOx4 Psychiatric: Normal affect and mood I have reviewed the patient's vital signs. Lines, Drains, Airways Peripheral IV 10/13/23 20 G Right Forearm (Active) Peripheral IV 10/13/23 20 G Left Antecubital (Active) Peripheral IV 10/18/23 18 G Right Hand (Active) Urethral Catheter Non-latex (Active) Labs/Diagnostic Review Na 134 Cl 99 BUN 12 K 4.6 CO2 30 Cr 1.17 Mg -, G AST - ALT - Alk Phos - Ca 8.8 TP - Alb - Total Bili: - Direct Bili: - \ Hgb 10.5 / WBC 8.8 -------- Plt 378 / MCV 93.3 \ INR 1.11 (Labs above are the most recent result obtained in the last 24 hours. For additional labs/trends, see Epic.) I have reviewed the laboratory results. Imaging Review XR Chest 1 View Result Date: 10/22/2023 Comparison is made to CT chest abdomen pelvis 10/12/2023. The left hemidiaphragm is mildly elevated. Indeterminant linear density projects over the left supraclavicular region and may be external to the patient. The lungs are clear. There is no pleural effusion or pneumothorax. The heart size is normal. Tortuous aorta. Dictated by: Alice Rios MD, PhD. The radiology attending physician has personally reviewed this study, and had reviewed and/or edited this written report and agrees with it. Electronically signed by: Maritza Miranda M.D. Assessment/Plan * Hydronephrosis with urinary obstruction due to renal calculus Assessment & Plan Presented with generalized weakness with fever and chills with CT evidence of left ureteral stone with hydro s/p cystoscopy. . Retrograde contrast during cystoscopy revealed a tortuous left ureter and contrast which did not fill past the mid ureter at the site of likely impacted left ureteral stone, thus Stent was not placed. Procedure was aborted and 16 F harris placed in bladder to drainage. Also IR guided Ureteral stent placement was attempted, however no calyceal dilation was noted contrast washing down the ureter. 10/14 he underwent successful IR guided PCN tube placement. CT urogram 10/16 with perinephric hematoma similar to ultrasound. L ureteral stones remain present. Left Stent was placed and PCN was removed 10/18 by urology. -urine culture 10/12 growing 2 E. Coli spp. Both butts sensitive. Blood cx NTD -left kidney aspirate c/s 10/14 ntd -ceftriaxone 10/12-10/19 --> cephalexin 500 mg q6hr (10/19-); received loading dose of gentamicinon 10/13 -s/p cystoscopy 10/18 with lithotripsy. Urology following: recommend continued antibiotics through time of spine surgery though OK to de-escalate to oral regimen. Medically patient has completed antibiotics for complicated UTI. Further Antibiotics per urology/spine surgery. -Continue harris catheter for decompression (replaced on 10/18). Flush the catheter 10 ml of NS every 8 hours to prevent clogging the tube given hemorrhagic output. Continue stent x3-4 weeks; Urology will schedule patient for second look URS -Will need to follow up with IR in 6-8 weeks for catheter exchange or internalization or possible removal if no definitive surgical plan is made in the interim. Left perinephric collection, 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 Assessment & Plan Likely post procedure complication. Urology following - CT urogram on 10/16 notes presence of L perinephric hematoma - Continue to trend white count, renal function and fever curve - ctm; urology followup UTI (urinary tract infection) Assessment & Plan - Complicated UTI with the presence of left ureteral stone and Pyelitis - urine culture grew E-coli which is pansusceptible. - Discussion with urology and orthopedic surgery: continue Keflex 500 mg q6hr as it appears patientwill stay in-house until OR on 10/22-10/23 -Medically patient has completed antibiotics for complicated UTI. Further Antibiotics per urology/spine surgery. Lumbar radiculopathy Assessment & Plan He has been planned for plan for an open L4-L5 posterior spinal fusion with instrumentation, TLIF from the left side, laminectomy, with autograft, allograft by Orthopedic surgery - MRI showed Redemonstrated degenerative disc disease of the [...] they prefer holding DVT chemoprophylaxis days prior tosurgery. OK for SCDs Neurochecks every 4 hours -Surgery rescheduled 10/23/23; pt to remain on spine floor after surgery with surgery being the primary team. Please dont hesitate to re-engage medicine if needed. Communicated with the surgical team. Prostate cancer (HCC) Assessment & Plan S/p postprostatectomy HTN (hypertension) Assessment & Plan Hold home irbesartan Restart diltiazem xl Code status : Full Code Diet : NPO Diet Sips with meds PT/OT Dispo Rec : PT Recommendation/Plan: Home with 24 hour supervision, No further PT indicated (Would defer skilled PT follow up until post op) / Supplementary Attestation Today, I am treating the patient for complicated UTI and lumbar radiculopathy which is in severe exacerbation, progression, or experiencing treatment side effects as evidenced by need for antibioticsand surgery, as described in the note. Reviewed records from the following unique sources (external institutions or providers from different services): urology, ortho. Independently interpreted labs which shows resolution of UTI. Discussed management of spine with ortho. Pipe Moseley MD MILL OPERATOR * Luciana Dickerson, PT - 10/23/2023 8:28 AM CST Physical Therapy 10/23/23 0828 General PT Missed Visit Reason Other (comment) (Per medical chart, pending OR today with ortho spine. Will follow up once post-op) MILL OPERATOR * Nasir Manzanares MD - 10/23/2023 6:14 AM CST Orthopaedic Spine Service Daily Progress Note Admit Date: 10/12/2023 Hospital Day: 10 [place]/[place] Dx: L4-L5 radiculopathy, UTI Relevant PMHx: HTN, prostate CA s/p prostatectomy (~2010), GERD, obesity, melanoma (2007), CKD Plan: PENDING OR 10/23 Procedure(s): Interval History: AFVSS. NAEO. WBC 8.8 (7.7). Hgb 10.5 (10.4). Has been on Keflex since 10/19 for UTI. Exam LLE 4- IP/Q, 4+ H/EHL/TA/GSC o/w 5/5 RLE and BUE. SILT throughout. Plan for OR today. Objective Vitals: 24hr Min/Max: Temp Min: 36.7 ??C (98.1 ??F) Max: 36.9 ??C (98.4 ??F) Pulse Min: 71 Max: 77 BP Min: 128/70 Max: 153/77 Resp Min: 16 Max: 18 SpO2 Min: 95 % Max: 100 % I/O last 2 completed shifts: In: - Out: 3725 [Urine:3725] I/O this shift: In: - Out: 1000 [Urine:1000] Physical Exam: Gen: no acute distress Neuro: A&Ox3 Motor: Muscle Strength Right Left Iliopsoas (L2/3) 5/5 4-/5 Quadriceps (L3/4) 5/5 4-/5 Tibialis anterior (L4/5) 5/5 4/5 Extensor hallicus longus (L5) 5/5 5/5 Gastrocsoleus complex (S1) 5/5 5/5 Sensation Left upper extremity: SILT C5 to T1 dermatomes. Right upper extremity: SILT C5 to T1 dermatomes. Left lower extremity: SILT L2 to S1 dermatomes. Right lower extremity: SILT L2 to S1 dermatomes. Long-tract signs: Negative Milner's BUE 0 beats clonus BLE Vascular: Bilateral Upper Extremity: fingers WWP Bilateral Lower Extremity: toes WWP Lab/Diagnostic Review: Recent Labs Lab Units 10/22/23213810/18/23212810/17/23 2252 SODIUM mmol/L 134* < > 133* POTASSIUM PLASMA mmol/L 4.6 < > 3.5 CHLORIDE mmol/L 99 < > 100 CO2 mmol/L 30 < > 27 ANIONGAP mmol/L 5 < > 6 GLUCOSE mg/dL 121 < > 186 BUN SERUM mg/dL 12 < > 12 CREATININE mg/dL 1.17 < > 0.97 CALCIUM mg/dL 8.8 < > 8.4* WBC K/cumm 8.8 < > 11.6* HEMOGLOBIN g/dL 10.5* < > 11.7* HEMATOCRIT % 30.7* < > 33.3* PLATELETS K/cumm 378 < > 256 NEUTROS PCT % 70.2 < > 77.7 LYMPHS PCT % 14.4 < > 11.7 MONOS PCT % 12.4 < > 6.8 EOS PCT % 1.4 < > 1.7 APTT sec -- -- 32 INR 1.11 -- 1.11 < > = values in [...] For susceptibility results, refer to accession number [id number] on the urine culture from 10/11/23 MICROBIOLOGY (.) 10/11/2023 Final Report: Greater than or equal to 100,000 colonies/mL of Escherichia coli Greater than or equal to 100,000 colonies/mL of Escherichia coli #2 MICROBIOLOGY 03/15/2023 Final Report: Less than 100,000 colonies/mL (clinically insignificant growth based on current clinical standards) MICROBIOLOGY Final Report: No growth 09/24/2019 Assessment/Plan: 73 y.o. male with above injury/deformity.Ortho is planning for OR 10/23 Precautions: n/a Immobilization: na Activity: Ambulate with assist DVT ppx: Hold for OR today Therapy: PT/OT for OOB/mobilization as tolerated Drain: n/a Antibiotics: Per primary, continue Keflex, abx for UTI per urology Cultures: na Harris: Per primary Wound Care: n/a Diet: NPO for OR today Imaging: na Additional Needs: CXR, Blood cx, UPEP/SPEP Ortho Spine will continue to follow this patient's hospital course. Dispo: Pending progress, postoperative recovery, and progress with therapy Follow-Up: We have not yet scheduled this patient for an appointment, but we will contact the patient with the details including the timing and location of their appointment once it is scheduled Nasir Manzanares MD Orthopaedic Surgery PGY2 Please call with questions during daytime. See below for overnight issues. If you know the resident's name on the appropriate orthopaedic surgery team, please use [email or web address] to page resident directly. If questions arise and the appropriate resident can't be reached or you are calling overnight, please contact [phone] ([place]- 7:30 PM - 6:30 AM - Floor Resident) or [phone] (24 hours/day - Consult Resident) Cosigned by Hayder Vu MD at 10/23/2023 4:10 PM HOB MILL OPERATOR MILL OPERATOR MILL OPERATOR Associated attestation - Hayder Vu Jr., MD - 10/23/2023 4:10 PM HOB MILL OPERATOR Attending Attestation I have seen and examined the patient on 10/23/23 in the Hospital. I agree with this note with the following exceptions: Examination today is: Sensation is intact to light touch throughout bilateral lower extremities. Right lower extremity: 5/5 strength iliopsoas, quadriceps, gastrocsoleus, tibialis anterior, EHL. Left lower extremity: 3/5 strength iliopsoas; 2/5 strength quadriceps; 4/5 strength gastrocsoleus, tibialis anterior, EHL. Hayder Vu Jr., MD Sandblast Operator Department of Orthopaedic Surgery Division of Spine Surgery [facility], [place] [employer] done by [employer]; therefore, variances and inaccuracies may occur. * Jimenez Henao MD - 10/22/2023 3:29 PM CST Daily Progress Note Division of Hospital Medicine Name: Hira Evans : 1950 Today's Date: October 22, 2023 Age: 73 y.o. male Admission: 10/12/2023 Bed: [id number] LOS: 9 days Subjective Chief complaint: back pain Interval History VSS. NAEO. Feels well overall; plan for OR 10/23 continues. Vitals: T 36.9 ??C (98.4 ??F), HR 77, BP 144/78, RR 18, SpO2 100 %. Pertinent Blood work: Na 136 K 4.5 BUN 12 Cr 1.02 WBC 7.7 Hgb 10.4 Plt 350 Objective Scheduled Meds PRN Meds Infusions [Held by Provider] acyclovir, 400 mg, oral, BID cephalexin, 500 mg, oral, QID dilTIAZem XR, 240 mg, oral, BID pantoprazole DR, 40 mg, oral, Daily polyethylene glycol, 17 g, oral, Daily sodium chloride 0.9%, 0.5-20 mL, intra-catheter, Q8H CAMMY sodium chloride 0.9%, 0.5-20 mL, intra-catheter, Q8H CAMMY tamsulosin, 0.8 mg, oral, Daily with dinner acetaminophen, 650 mg, oral, Q4H PRN sodium chloride 0.9%, 30 mL, intravenous, PRN sodium chloride 0.9%, 30 mL, intravenous, PRN HYDROmorphone, 0.2 mg, intravenous, Q4H PRN hydrOXYzine, 25 mg, oral, BID PRN ondansetron ODT, 4 mg, oral, Q6H PRN OR ondansetron, 4 mg, intravenous, Q6H PRN oxyCODONE, 5 mg, oral, Q4H PRN ramelteon, 8 mg, oral, Nightly PRN sodium chloride 0.9%, 0.5-20 mL, intra-catheter, PRN sodium chloride 0.9%, 0.5-20 mL, intra-catheter, PRN Vitals Most Recent Vitals: T 36.9 ??C (98.4 ??F), HR 77, BP 144/78, RR 18, SpO2 100 %. 24hr Min/Max: Temp Min: 36.6 ??C (97.9 ??F) Max: 36.9 ??C (98.4 ??F) Pulse Min: 68 Max: 77 BP Min: 140/89 Max: 144/78 Resp Min: 18 Max: 20 SpO2 Min: 95 % Max: 100 % Intake/Output Summary (Last 24 hours) at 10/22/2023 1529 Last data filed at 10/22/2023 1137 Gross per 24 hour Intake 20 ml Output 4450 ml Net -4430 ml Physical Exam General: NAD Lungs: Clear to auscultation in all lung muñoz, unlabored Cardiovascular: RRR, normal S1 and S2, no murmurs, no JVD, edema absent GI: Soft, non-tender, non-distended, bowel sounds +, no organomegaly Skin: No new rashes, lesions or bruises on visible skin Extremities: NAD, harris in place draining camilo urine, left nephrostomy tube. Neurologic: AOx4, CNII-XII intact, weakness of left quadriceps otherwise, normal strength and sensation Psychiatric: Normal affect and mood I have reviewed the patient's vital signs. Lines, Drains, Airways Peripheral IV 10/13/23 20 G Right Forearm (Active) Peripheral IV 10/13/23 20 G Left Antecubital (Active) Peripheral IV 10/18/23 18 G Right Hand (Active) Urethral Catheter Non-latex (Active) Labs/Diagnostic Review Na 136 Cl 99 BUN 12 K 4.5 CO2 27 Cr 1.02 Mg -, G AST - ALT - Alk Phos - Ca 8.7 TP - Alb - Total Bili: - Direct Bili: - \ Hgb 10.4 / WBC 7.7 -------- Plt 350 / MCV 90.9 \ INR - (Labs above are the most recent result obtained in the last 24 hours. For additional labs/trends, see Epic.) I have reviewed the laboratory results. Imaging Review XR Chest 1 View Result Date: 10/22/2023 Comparison is made to CT chest abdomen pelvis 10/12/2023. The left hemidiaphragm is mildly elevated. Indeterminant linear density projects over the left supraclavicular region and may be external to the patient. The lungs are clear. There is no pleural effusion or pneumothorax. The heart size is normal. Tortuous aorta. Dictated by: Alice Rios MD, PhD. The radiology attending physician has personally reviewed this study, and had reviewed and/or edited this written report and agrees with it. Electronically signed by: Maritza Miranda M.D. Assessment/Plan Left perinephric collection, 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 Assessment & Plan Likely post procedure complication. Urology following - CT urogram on 10/16 notes presence of L perinephric hematoma - Continue to trend white count, renal function and fever curve UTI (urinary tract infection) Assessment & Plan - Complicated UTI with the presence of left ureteral stone and Pyelitis - urine culture grew E-coli which is pansusceptible. - Discussion with urology and orthopedic surgery: continue Keflex 500 mg q6hr as it appears patientwill stay in-house until OR on 10/22-10/23 -Antibiotics as above. Lumbar radiculopathy Assessment & Plan He has been planned for plan for [...] they prefer holding DVT chemoprophylaxis days prior tosurgery. OK for SCDs Neurochecks every 4 hours Surgery rescheduled to 10/23/23 Prostate cancer (HCC) Assessment & Plan S/p postprostatectomy HTN (hypertension) Assessment & Plan Hold home irbesartan Restart diltiazem xl * Hydronephrosis with urinary obstruction due to renal calculus Assessment & Plan Presented with generalized weakness with fever and chills with CT evidence of left ureteral stone with hydro s/o cystoscopy. . Retrograde contrast during cystoscopy revealed a tortuous left ureter and contrast which did not fill past the mid ureter at the site of likely impacted left ureteral stone, thus Stent was not placed. Procedure was aborted and 16 F harris placed in bladder to drainage. Also IR guided Ureteral stent placement was attempted, however no calyceal dilation was noted contrast washing down the ureter. 10/14 he underwent successful Ir guided PCN tube placement. -ceftriaxone --> cephalexin 500 mg q6hr (10/19-) -received loading dose of gentamicin on 10/13 -Continue harris catheter for decompression (replaced on 10/18) -zofran [...] though OK to de-escalate to oral regimen Code status : Full Code Diet : Adult Diet Regular NPO Diet Sips with meds PT/OT Dispo Rec : PT Recommendation/Plan: Home with 24 hour supervision, No further PT indicated (Would defer skilled PT follow up until post op) / Supplementary Attestation The total encounter time on this service date was 33 minutes which was spent performing a [id number] encounter and personally completing the provider-level activities documented in the note. This includes time spent prior to the visit and after the visit in direct care of the patient. This time does not include time spent in any separately reportable services. Jimenez Henao MD MILL OPERATOR * Zehra Cook MD - 10/22/2023 6:43 AM CST Orthopaedic Spine Service Daily Progress Note Admit Date: 10/12/2023 Hospital Day: 9 [place] Dx: L4-L5 radiculopathy, UTI Relevant PMHx: HTN, prostate CA s/p prostatectomy (~2010), GERD, obesity, melanoma (2007), CKD Plan: PENDING OR 10/23 Procedure(s): Interval History: 10/22/23. AFVSS overnight. +UOP in catheter. On Keflex for UTI (E coli). BCx NGTD (10/11). Exam: LLE, 4/5 IP, 4/5 Q, 4+/5 H, 4/5 EHL & TA, 5/5 GSC in LLE o/w 5/5 in BUE/RLE, SILT throughout. Was able to ambulate with assist yesterday. Dexa scan obtained 10/18. Plan for OR this upcoming Tuesday 10/23. Please make NPO at [place], hold DVT prophylaxis. Edited by: Zehra Cook MD at 10/22/2023 0658 Objective Vitals: 24hr Min/Max: Temp Min: 36.1 ??C (97 ??F) Max: 36.9 ??C (98.4 ??F) Pulse Min: 67 Max: 73 BP Min: 138/73 Max: 146/85 Resp Min: 18 Max: 20 SpO2 Min: 95 % Max: 98 % I/O last 2 completed shifts: In: 470 [P.O.:450; I.V.:20] Out: 2625 [Urine:2625] I/O this shift: In: - Out: 850 [Urine:850] Physical Exam: Gen: no acute distress Neuro: A&Ox3 Motor: Muscle Strength Right Left Iliopsoas (L2/3) 5/5 4/5 Quadriceps (L3/4) 5/5 4/5 Tibialis anterior (L4/5) 5/5 4/5 Extensor hallicus longus (L5) 5/5 5/5 Gastrocsoleus complex (S1) 5/5 5/5 Sensation Left upper extremity: SILT C5 to T1 dermatomes. Right upper extremity: SILT C5 to T1 dermatomes. Left lower extremity: SILT L2 to S1 dermatomes. Right lower extremity: SILT L2 to S1 dermatomes. Long-tract signs: Negative Milner's BUE 0 beats clonus BLE Vascular: Bilateral Upper Extremity: fingers WWP Bilateral Lower Extremity: toes WWP Lab/Diagnostic Review: Recent Labs Lab Units 10/21/23225110/18/[id number]/17/232251 SODIUM mmol/L 136 < > 133* POTASSIUM PLASMA mmol/L 4.5 < > 3.5 CHLORIDE mmol/L 99 < > 100 CO2 mmol/L 27 < > 27 ANIONGAP mmol/L 10 < > 6 GLUCOSE mg/dL 117 < > 186 BUN SERUM mg/dL 12 < > 12 CREATININE mg/dL 1.02 < > 0.97 CALCIUM mg/dL 8.7 < > 8.4* WBC K/cumm 7.7 < > 11.6* HEMOGLOBIN g/dL 10.4* < > 11.7* HEMATOCRIT % 30.1* < > 33.3* PLATELETS K/cumm 350 < > 256 NEUTROS PCT % 65.0 < > 77.7 LYMPHS PCT % 17.8 < > 11.7 MONOS PCT % 13.6 < > 6.8 EOS PCT % 1.8 < > 1.7 APTT sec -- -- 32 INR -- -- 1.11 < > = values in [...] For susceptibility results, refer to accession number [id number] on the urine culture from 10/11/23 MICROBIOLOGY (.) 10/11/2023 Final Report: Greater than or equal to 100,000 colonies/mL of Escherichia coli Greater than or equal to 100,000 colonies/mL of Escherichia coli #2 MICROBIOLOGY 03/15/2023 Final Report: Less than 100,000 colonies/mL (clinically insignificant growth based on current clinical standards) MICROBIOLOGY Final Report: No growth 09/24/2019 Assessment/Plan: 73 y.o. male with above injury/deformity.Ortho is planning for OR 10/23 Precautions: n/a Immobilization: na Activity: Ambulate with assist DVT ppx: Hold at [place] for OR tomorrow Therapy: PT/OT for OOB/mobilization as tolerated Drain: n/a Antibiotics: Per primary, continue Keflex, abx for UTI per urology Cultures: na Harris: Per primary Wound Care: n/a Diet: NPO at midnight Imaging: na Additional Needs: CXR, Blood cx, UPEP/SPEP Ortho Spine will continue to follow this patient's hospital course. Dispo: Pending progress, postoperative recovery, and progress with therapy Follow-Up: We have not yet scheduled this patient for an appointment, but we will contact the patient with the details including the timing and location of their appointment once it is scheduled Edited by: Zehra Cook MD at 10/22/2023 0643 Please call with questions during daytime. See below for overnight issues. If you know the resident's name on the appropriate orthopaedic surgery team, please use [email or web address] to page resident directly. If questions arise and the appropriate resident can't be reached or you are calling overnight, please contact [phone] ([place]- 7:30 PM - 6:30 AM - Floor Resident) or [phone] (24 hours/day - Consult Resident) Cosigned by Hayder Vu MD at 10/23/2023 7:36 AM HOB MILL OPERATOR MILL OPERATOR MILL OPERATOR * Jimenez Henao MD - 10/21/2023 10:51 AM CST Daily Progress Note Division of Hospital Medicine Name: Hira Evans : 1950 Today's Date: October 21, 2023 Age: 73 y.o. male Admission: 10/12/2023 Bed: [id number] LOS: 8 days Subjective Chief complaint: back pain Interval History VSS. NAEO. Had bowel movement, no abdominal discomfort. Was able to get up and ambulate small amount with assistance yesterday. No new numbness/pain at this time. Harris catheter drainage continues toclear. Vitals: T 36.6 ??C (97.8 ??F), HR 67, BP 146/85, RR 18, SpO2 96 %. Pertinent Blood work: Na 134 K 4.5 BUN 12 Cr 1.00 WBC 8.5 Hgb 11.0 Plt 321 Objective Scheduled Meds PRN Meds Infusions [Held by Provider] acyclovir, 400 mg, oral, BID cephalexin, 500 mg, oral, QID dilTIAZem XR, 240 mg, oral, BID pantoprazole DR, 40 mg, oral, Daily polyethylene glycol, 17 g, oral, Daily sodium chloride 0.9%, 0.5-20 mL, intra-catheter, Q8H CAMMY sodium chloride 0.9%, 0.5-20 mL, intra-catheter, Q8H CAMMY tamsulosin, 0.8 mg, oral, Daily with dinner acetaminophen, 650 mg, oral, Q4H PRN sodium chloride 0.9%, 30 mL, intravenous, PRN sodium chloride 0.9%, 30 mL, intravenous, PRN HYDROmorphone, 0.2 mg, intravenous, Q4H PRN hydrOXYzine, 25 mg, oral, BID PRN ondansetron ODT, 4 mg, oral, Q6H PRN OR ondansetron, 4 mg, intravenous, Q6H PRN oxyCODONE, 5 mg, oral, Q4H PRN ramelteon, 8 mg, oral, Nightly PRN sodium chloride 0.9%, 0.5-20 mL, intra-catheter, PRN sodium chloride 0.9%, 0.5-20 mL, intra-catheter, PRN Vitals Most Recent Vitals: T 36.6 ??C (97.8 ??F), HR 67, BP 146/85, RR 18, SpO2 96 %. 24hr Min/Max: Temp Min: 36.6 ??C (97.8 ??F) Max: 37 ??C (98.6 ??F) Pulse Min: 66 Max: 82 BP Min: 138/72 Max: 150/77 Resp Min: 16 Max: 18 SpO2 Min: 96 % Max: 97 % Intake/Output Summary (Last 24 hours) at 10/21/2023 1051 Last data filed at 10/21/2023 0750 Gross per 24 hour Intake 450 ml Output 3225 ml Net -2775 ml Physical Exam General: NAD Lungs: Clear to auscultation in all lung muñoz, unlabored Cardiovascular: RRR, normal S1 and S2, no murmurs, no JVD, edema absent GI: Soft, non-tender, non-distended, bowel sounds +, no organomegaly Skin: No new rashes, lesions or bruises on visible skin Extremities: NAD, harris in place draining camilo urine, left nephrostomy tube. Neurologic: AOx4, CNII-XII intact, weakness of left quadriceps otherwise, normal strength and sensation Psychiatric: Normal affect and mood I have reviewed the patient's vital signs. Lines, Drains, Airways Peripheral IV 10/13/23 20 G Right Forearm (Active) Peripheral IV 10/13/23 20 G Left Antecubital (Active) Peripheral IV 10/18/23 18 G Right Hand (Active) Urethral Catheter Non-latex (Active) Labs/Diagnostic Review Na 134 Cl 97 BUN 12 K 4.5 CO2 27 Cr 1.00 Mg -, G AST - ALT - Alk Phos - Ca 8.9 TP - Alb - Total Bili: - Direct Bili: - \ Hgb 11.0 / WBC 8.5 -------- Plt 321 / MCV 93.4 \ INR - (Labs above are the most recent result obtained in the last 24 hours. For additional labs/trends, see Epic.) I have reviewed the laboratory results. Imaging Review No results found. Assessment/Plan Left perinephric collection, 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 Assessment & Plan Likely post procedure complication. Urology following - CT urogram on 10/16 notes presence of L perinephric hematoma - Continue to trend white count, renal function and fever curve UTI (urinary tract infection) Assessment & Plan - Complicated UTI with the presence of left ureteral stone and Pyelitis - urine culture grew E-coli which is pansusceptible. - Discussion with urology and orthopedic surgery: continue Keflex 500 mg q6hr as it appears patientwill stay in-house until OR on 10/22-10/23 -Antibiotics as above. Lumbar radiculopathy Assessment & Plan He has been planned for plan for [...] they prefer holding DVT chemoprophylaxis days prior tosurgery. OK for SCDs Neurochecks every 4 hours Surgery rescheduled to 10/23/23 Prostate cancer (HCC) Assessment & Plan S/p postprostatectomy HTN (hypertension) Assessment & Plan Hold home irbesartan Restart diltiazem xl * Hydronephrosis with urinary obstruction due to renal calculus Assessment & Plan Presented with generalized weakness with fever and chills with CT evidence of left ureteral stone with hydro s/o cystoscopy. . Retrograde contrast during cystoscopy revealed a tortuous left ureter and contrast which did not fill past the mid ureter at the site of likely impacted left ureteral stone, thus Stent was not placed. Procedure was aborted and 16 F harris placed in bladder to drainage. Also IR guided Ureteral stent placement was attempted, however no calyceal dilation was noted contrast washing down the ureter. 10/14 he underwent successful Ir guided PCN tube placement. -ceftriaxone --> cephalexin 500 mg q6hr (10/19-) -received loading dose of gentamicin on 10/13 -Continue harris catheter for decompression (replaced on 10/18) -zofran [...] though OK to de-escalate to oral regimen Code status : Full Code Diet : Adult Diet Regular PT/OT Dispo Rec : PT Recommendation/Plan: Home with 24 hour supervision, No further PT indicated (Would defer skilled PT follow up until post op) / Supplementary Attestation The total encounter time on this service date was 28 minutes which was spent performing a [id number] encounter and personally completing the provider-level activities documented in the note. This includes time spent prior to the visit and after the visit in direct care of the patient. This time does not include time spent in any separately reportable services. Jimenez Henao MD MILL OPERATOR * Jimenez Henao MD - 10/20/2023 2:55 PM CST Daily Progress Note Division of Hospital Medicine Name: Hira Evans : 1950 Today's Date: October 20, 2023 Age: 73 y.o. male Admission: 10/12/2023 Bed: [id number] LOS: 7 days Subjective Chief complaint: back pain Interval History VSS. NAEO. Feels well. No pain from nephrostomy site. No pain/discomfort at harris site. Urine is clearing up per patient. Mentions some constipation. Na 135 today. Vitals: T 36.8 ??C (98.3 ??F), HR 71, BP 134/68, RR 18, SpO2 96 %. Pertinent Blood work: Na 135 K 4.3 BUN 17 Cr 0.99 WBC 10.3 Hgb 11.0 Plt 281 Objective Scheduled Meds PRN Meds Infusions [Held by Provider] acyclovir, 400 mg, oral, BID cephalexin, 500 mg, oral, QID dilTIAZem XR, 240 mg, oral, BID pantoprazole DR, 40 mg, oral, Daily polyethylene glycol, 17 g, oral, Daily sodium chloride 0.9%, 0.5-20 mL, intra-catheter, Q8H CAMMY sodium chloride 0.9%, 0.5-20 mL, intra-catheter, Q8H CAMMY tamsulosin, 0.8 mg, oral, Daily with dinner acetaminophen, 650 mg, oral, Q4H PRN sodium chloride 0.9%, 30 mL, intravenous, PRN sodium chloride 0.9%, 30 mL, intravenous, PRN HYDROmorphone, 0.2 mg, intravenous, Q4H PRN hydrOXYzine, 25 mg, oral, BID PRN ondansetron ODT, 4 mg, oral, Q6H PRN OR ondansetron, 4 mg, intravenous, Q6H PRN oxyCODONE, 5 mg, oral, Q4H PRN ramelteon, 8 mg, oral, Nightly PRN sodium chloride 0.9%, 0.5-20 mL, intra-catheter, PRN sodium chloride 0.9%, 0.5-20 mL, intra-catheter, PRN Vitals Most Recent Vitals: T 36.8 ??C (98.3 ??F), HR 71, BP 134/68, RR 18, SpO2 96 %. 24hr Min/Max: Temp Min: 36.7 ??C (98 ??F) Max: 37.4 ??C (99.3 ??F) Pulse Min: 69 Max: 85 BP Min: 129/71 Max: 141/70 Resp Min: 18 Max: 18 SpO2 Min: 93 % Max: 98 % Intake/Output Summary (Last 24 hours) at 10/20/2023 1455 Last data filed at 10/20/2023 0510 Gross per 24 hour Intake -- Output 1650 ml Net -1650 ml Physical Exam General: NAD Lungs: Clear to auscultation in all lung muñoz, unlabored Cardiovascular: RRR, normal S1 and S2, no murmurs, no JVD, edema absent GI: Soft, non-tender, non-distended, bowel sounds +, no organomegaly Skin: No new rashes, lesions or bruises on visible skin Extremities: NAD, harris in place draining camilo urine, left nephrostomy tube. Neurologic: AOx4, CNII-XII intact, weakness of left quadriceps otherwise, normal strength and sensation Psychiatric: Normal affect and mood I have reviewed the patient's vital signs. Lines, Drains, Airways Peripheral IV 10/13/23 20 G Right Forearm (Active) Peripheral IV 10/13/23 20 G Left Antecubital (Active) Peripheral IV 10/18/23 18 G Right Hand (Active) Nephrostomy Left 10 Fr. (Active) Urethral Catheter Non-latex (Active) Labs/Diagnostic Review Na 135 Cl 99 BUN 17 K 4.3 CO2 27 Cr 0.99 Mg -, G AST - ALT - Alk Phos - Ca 8.6 TP - Alb - Total Bili: - Direct Bili: - \ Hgb 11.0 / WBC 10.3 -------- Plt 281 / MCV 91.3 \ INR - (Labs above are the most recent result obtained in the last 24 hours. For additional labs/trends, see Epic.) I have reviewed the laboratory results. Imaging Review No results found. Assessment/Plan Left perinephric collection, 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 Assessment & Plan Likely post procedure complication. Urology following - CT urogram on 10/16 notes presence of L perinephric hematoma - Continue to trend white count, renal function and fever curve UTI (urinary tract infection) Assessment & Plan - Complicated UTI with the presence of left ureteral stone and Pyelitis - urine culture grew E-coli which is pansusceptible. - Discussion with urology and orthopedic surgery: continue Keflex 500 mg q6hr as it appears patientwill stay in-house until OR on 10/22-10/23 -Antibiotics as above. Lumbar radiculopathy Assessment & Plan He has been planned for plan for [...] they prefer holding DVT chemoprophylaxis days prior tosurgery. OK for SCDs Neurochecks every 4 hours Surgery rescheduled to 10/23/23 Prostate cancer (HCC) Assessment & Plan S/p postprostatectomy HTN (hypertension) Assessment & Plan Hold home irbesartan Restart diltiazem xl * Hydronephrosis with urinary obstruction due to renal calculus Assessment & Plan Presented with generalized weakness with fever and chills with CT evidence of left ureteral stone with hydro s/o cystoscopy. . Retrograde contrast during cystoscopy revealed a tortuous left ureter and contrast which did not fill past the mid ureter at the site of likely impacted left ureteral stone, thus Stent was not placed. Procedure was aborted and 16 F harris placed in bladder to drainage. Also IR guided Ureteral stent placement was attempted, however no calyceal dilation was noted contrast washing down the ureter. 10/14 he underwent successful Ir guided PCN tube placement. -ceftriaxone --> cephalexin 500 mg q6hr (10/19-) -received loading dose of gentamicin on 10/13 -Continue harris catheter for decompression (replaced on 10/18) -zofran [...] though OK to de-escalate to oral regimen Code status : Full Code Diet : Adult Diet Regular PT/OT Dispo Rec : PT Recommendation/Plan: Home with 24 hour supervision, No further PT indicated (Would defer skilled PT follow up until post op) / Supplementary Attestation The total encounter time on this service date was 28 minutes which was spent performing a [id number] encounter and personally completing the provider-level activities documented in the note. This includes time spent prior to the visit and after the visit in direct care of the patient. This time does not include time spent in any separately reportable services. Jimenez Henao MD MILL OPERATOR * Belen Hennessy PA - 10/19/2023 1:59 PM CST Images from the original note were not included. Interventional Radiology Progress Note Patient History: 73yoM w/ L hydroureter due to obstructing stone s/p L PCN placement on 08/16. Interval History: L PCN removed 10/18/2023 by Urology during laser lithotripsy. Exam: General: alert & oriented X 3, NAD Skin: warm and well perfused C/V: normal rate and rhythm Pulm: normal respirations, nonlabored breathing Abdomen: soft, NT/ND Temp: [36.4 ??C (97.5 ??F)-37.1 ??C (98.8 ??F)] 37.1 ??C (98.8 ??F) Pulse: [73-77] 76 Resp: [16-18] 18 BP: (126-144)/(63-72) 126/63 Drain: L PCN 10F pl 08/16: 505 (10/16), 255 (10/17), 200 (10/18) - L PCN removed by Urology on 10/18/2023 Labs: Reviewed. Slight WBC bump likely due to surgical procedure yesterday. Chem/LFT Lab History Latest Ref Rng & Units 10/13/2023 06:50 10/14/2023 06:30 10/17/2023 22:52 10/18/2023 21:29 Labs-Chem/LFT Sodium 135 - 145 mmol/L 137 136 133 132 Creatinine 0.80 - 1.30 mg/dL 0.82 1.20 0.97 0.93 Bilirubin, total 0.1 - 1.2 mg/dL 0.7 0.5 AST 10 - 50 Units/L 50 49 ALT 7 - 55 Units/L 68 67 Alk phos 40 - 130 Units/L 113 108 CrCl- Actual Body Weight (Cockcroft-Gault) 94 64.3 79.5 82.9 Hematology Lab History Latest Ref Rng & Units 10/13/2023 06:50 10/14/2023 06:30 10/17/2023 22:52 10/18/2023 21:29 Labs - Hematology WBC 3.8 - 9.9 K/cumm 6.2 9.4 11.6 16.4 Total Hb, POC 13.0 - 17.5 g/dL 13.3 11.4 11.7 11.3 Hct 38.9 - 50.3 % 37.0 32.2 33.3 32.8 Plt 150 - 400 K/cumm 143 134 256 286 Neutrophil abs 1.5 - 6.5 K/cumm 5.8 7.4 9.0 13.6 Lymphocytes, abs 0.8 - 3.3 K/cumm 0.2 0.6 1.4 1.4 Lab Results Component Value Date MICROBIOLOGY Final Report: No growth 10/14/2023 Assessment and Plan: 73yoM w/ L hydroureter due to obstructing stone s/p L PCN placement on 08/16. L PCN removed 10/18/2023 by Urology during laser lithotripsy. - L PCN removed by Urology. - Continue daily dressing changes over drain removal site until a scab forms, then can leave the area open to air and uncovered. - IR to sign off, no further IR care needed. Belen Hennessy PA-C Interventional Radiology Available via [email or web address] M-F 7 AM until 3 PM IR call pager M-F after 3 PM or on weekends If the patient does not already have a follow-up appointment arranged, please place order and then please call the [employer] front services agent at between 7:30 AM and 4:00 PM. MILL OPERATOR * Jimenez Henao MD - 10/19/2023 12:50 PM CST Daily Progress Note Division of Hospital Medicine Name: Hira Evans : 1950 Today's Date: October 19, 2023 Age: 73 y.o. male Admission: 10/12/2023 Bed: [id number] LOS: 6 days Subjective Chief complaint: back pain Interval History VSS. NAEO. Feels well overall. Concern from patient and about return to home with sick family members at home and increased assistance needs with LLE weakness. Some issues with stairs between bedroom and bathrooms as well which are troublesome for pt and . Will continue to follow-up to seeif resolution is able to be reached Discussion with orthopedic surgery and urology. Can continue PO antibiotics until date of surgery. Vitals: T 37.1 ??C (98.8 ??F), HR 76, BP 126/63, RR 18, SpO2 95 %. Pertinent Blood work: Na 132 K 4.0 BUN 16 Cr 0.93 WBC 16.4 Hgb 11.3 Plt 286 Objective Scheduled Meds PRN Meds Infusions [Held by Provider] acyclovir, 400 mg, oral, BID cephalexin, 500 mg, oral, QID dilTIAZem XR, 240 mg, oral, BID pantoprazole DR, 40 mg, oral, Daily polyethylene glycol, 17 g, oral, Daily sodium chloride 0.9%, 0.5-20 mL, intra-catheter, Q8H CAMMY sodium chloride 0.9%, 0.5-20 mL, intra-catheter, Q8H CAMMY tamsulosin, 0.8 mg, oral, Daily with dinner acetaminophen, 650 mg, oral, Q4H PRN sodium chloride 0.9%, 30 mL, intravenous, PRN sodium chloride 0.9%, 30 mL, intravenous, PRN HYDROmorphone, 0.2 mg, intravenous, Q4H PRN hydrOXYzine, 25 mg, oral, BID PRN ondansetron ODT, 4 mg, oral, Q6H PRN OR ondansetron, 4 mg, intravenous, Q6H PRN oxyCODONE, 5 mg, oral, Q4H PRN ramelteon, 8 mg, oral, Nightly PRN sodium chloride 0.9%, 0.5-20 mL, intra-catheter, PRN sodium chloride 0.9%, 0.5-20 mL, intra-catheter, PRN Vitals Most Recent Vitals: T 37.1 ??C (98.8 ??F), HR 76, BP 126/63, RR 18, SpO2 95 %. 24hr Min/Max: Temp Min: 36.4 ??C (97.5 ??F) Max: 37.1 ??C (98.8 ??F) Pulse Min: 70 Max: 77 BP Min: 126/63 Max: 150/62 Resp Min: 16 Max: 18 SpO2 Min: 95 % Max: 99 % Intake/Output Summary (Last 24 hours) at 10/19/2023 1250 Last data filed at 10/19/2023 1140 Gross per 24 hour Intake -- Output 3100 ml Net -3100 ml Physical Exam General: NAD Lungs: Clear to auscultation in all lung muñoz, unlabored Cardiovascular: RRR, normal S1 and S2, no murmurs, no JVD, edema absent GI: Soft, non-tender, non-distended, bowel sounds +, no organomegaly Skin: No new rashes, lesions or bruises on visible skin Extremities: NAD, harris in place draining camilo urine, left nephrostomy tube. Neurologic: AOx4, CNII-XII intact, weakness of left quadriceps otherwise, normal strength and sensation Psychiatric: Normal affect and mood I have reviewed the patient's vital signs. Lines, Drains, Airways Peripheral IV 10/13/23 20 G Right Forearm (Active) Peripheral IV 10/13/23 20 G Left Antecubital (Active) Peripheral IV 10/18/23 18 G Right Hand (Active) Nephrostomy Left 10 Fr. (Active) Urethral Catheter Non-latex (Active) Labs/Diagnostic Review Na 132 Cl 97 BUN 16 K 4.0 CO2 27 Cr 0.93 Mg -, G AST - ALT - Alk Phos - Ca 8.2 TP - Alb - Total Bili: - Direct Bili: - \ Hgb 11.3 / WBC 16.4 -------- Plt 286 / MCV 92.9 \ INR 1.11 (Labs above are the most recent result obtained in the last 24 hours. For additional labs/trends, see Epic.) I have reviewed the laboratory results. Imaging Review Dexa Axial Skeleton Bone Density 1 or 2 Site Result Date: 10/18/2023 1. The bone mineral density of the lumbar spine is normal. 2. The bone mineral density of the left femoral neck is normal. 3. The bone mineral density of the left total hip is normal. 4. Overall, theabove findings are normal by WHO criteria. 5. Calculation of fracture risk using the FRAX model is not appropriate in certain settings. It was not performed in this patient because the patient met the following condition(s): normal bone density. General comments regarding interpretation of bone density measurements: A) In children, premenopausal woman and males under age 50 not at increased risk for fractures only Z-scores, not T-scores are used to indicate risk. A Z-score above -2.0 is definedas within the expected range for age and Z-score at or less than -2.0 is below the expected range for age . A Z-score below the expected range for age in a patient with recent fractures and/or chronic corticosteroid treatment is consistent with a diagnosis of osteoporosis. B) In post menopausal women and males over 50, comparison of the measured bone mineral density with the average value in young normal subjects (the T-score ) has been found to be useful in assessing fracture risk. Fracture risk approximately doubles for each 1.0 standard deviation (SD) in individual's hip or spine bone mineral density is below the average value of young normal subjects. The World Health Organization (WHO) has defined T-scores of -1.0 to -2.5 as diagnostic of low bone mass (OSTEOPENIA), and T-scores of -2.5 or lower to be diagnostic of OSTEOPOROSIS, based on the site of lowest bone density. Note that there will be a change in reporting format and reference databases as patients move from the younger population (group A) to the older population (group B) The National Osteoporosis Foundation (www.nof.org) recommends adequate intake of calcium and vitamin D and regular weight-bearing exercise inall patients. They recommend pharmacologic treatment in postmenopausal women and men age 50 and older presenting with any of the followin) Osteoporosis, after appropriate evaluation to exclude sec ondary causes. 2) A hip or vertebral (clinical or radiographic) fracture, regardless of the bone density. 3) Low bone mass (Osteopenia) and one or more of: other prior fractures, secondary causes associated with high risk of fracture (such as glucocorticoid use or total immobilization), or computedhigh risk of fracture (10-yr probability of hip fracture >= 3% or a 10-yr probability of any major osteoporosis-related fracture >= 20% based on the [place].-adapted WHO algorithm), available at http://www.shef.ac.uk/FRAX). Dictated by: Gypsy Pelletier M.D. The radiology attending physician has personally reviewed this study, and had reviewed and/or edited this written report and agrees with it. Electronically signed by: Nikki Bella MD, Ph.D Assessment/Plan Left perinephric collection, 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 Assessment & Plan Likely post procedure complication. Urology following - CT urogram on 10/16 - Continue to trend white count, renal function and fever curve UTI (urinary tract infection) Assessment & Plan - Complicated UTI with the presence of left ureteral stone and Pyelitis - urine culture grew E-coli which is pansusceptible. - Discussion with urology and orthopedic surgery: switch to oral regimen: will start keflex 500 mg q6hr as it appears patient will stay in-house until OR on 10/22-10/23 -Antibiotics as above. Lumbar radiculopathy Assessment & Plan He has been planned for plan for [...] and thoracic spine. Per ortho, Hold DVT prophylaxis, SCD's -discussed with ortho, they prefer holding DVT prophylaxis days prior to surgery. Neurochecks every 4 hours Surgery rescheduled to 10/23/23 Prostate cancer (HCC) Assessment & Plan S/p postprostatectomy HTN (hypertension) Assessment & Plan Hold home irbesartan Restart diltiazem xl * Hydronephrosis with urinary obstruction due to renal calculus Assessment & Plan Presented with generalized weakness with fever and chills with CT evidence of left ureteral stone with hydro s/o cystoscopy. . Retrograde contrast during cystoscopy revealed a tortuous left ureter and contrast which did not fill past the mid ureter at the site of likely impacted left ureteral stone, thus Stent was not placed. Procedure was aborted and 16 F harris placed in bladder to drainage. Also IR guided Ureteral stent placement was attempted, however no calyceal dilation was noted contrast washing down the ureter. 10/14 he underwent successful Ir guided PCN tube placement. -ceftriaxone --> cephalexin 500 mg q6hr (10/19-) -received loading dose of gentamicin on 10/13 -Continue harris catheter for decompression (replaced on 10/18) -zofran [...] though OK to de-escalate to oral regimen Code status : Full Code Diet : Adult Diet Regular PT/OT Dispo Rec : PT Recommendation/Plan: Home with 24 hour supervision, No further PT indicated (Would defer skilled PT follow up until post op) / Supplementary Attestation The total encounter time on this service date was 50 minutes which was spent performing a [id number] encounter and personally completing the provider-level activities documented in the note. This includes time spent prior to the visit and after the visit in direct care of the patient. This time does not include time spent in any separately reportable services. Jimenez Henao MD MILL OPERATOR * Jimenez Henao MD - 10/18/2023 5:15 PM CST Daily Progress Note Division of Hospital Medicine Name: Hira Evans : 1950 Today's Date: October 18, 2023 Age: 73 y.o. male Admission: 10/12/2023 Bed: [id number] LOS: 5 days Subjective Chief complaint: back pain Interval History VSS. NAEO. This AM underwent cystoscopy with lithotripsy with urology and later underwent DEXA scan. He feels well overall though a little bit groggy after surgery. DEXA performed and awaiting orthopedic surgery review. Vitals: T 36.6 ??C (97.9 ??F), HR 77, BP 131/71, RR 16, SpO2 97 %. Pertinent Blood work: Na 133 K 3.5 BUN 12 Cr 0.97 WBC 11.6 Hgb 11.7 Plt 256 Objective Scheduled Meds PRN Meds Infusions [Held by Provider] acyclovir, 400 mg, oral, BID cefTRIAXone, 2,000 mg, intravenous, Q24H CAMMY dilTIAZem XR, 240 mg, oral, BID pantoprazole DR, 40 mg, oral, Daily polyethylene glycol, 17 g, oral, Daily sodium chloride 0.9%, 0.5-20 mL, intra-catheter, Q8H CAMMY sodium chloride 0.9%, 0.5-20 mL, intra-catheter, Q8H CAMMY tamsulosin, 0.8 mg, oral, Daily with dinner acetaminophen, 650 mg, oral, Q4H PRN sodium chloride 0.9%, 30 mL, intravenous, PRN sodium chloride 0.9%, 30 mL, intravenous, PRN HYDROmorphone, 0.2 mg, intravenous, Q4H PRN hydrOXYzine, 25 mg, oral, BID PRN ondansetron ODT, 4 mg, oral, Q6H PRN OR ondansetron, 4 mg, intravenous, Q6H PRN oxyCODONE, 5 mg, oral, Q4H PRN ramelteon, 8 mg, oral, Nightly PRN sodium chloride 0.9%, 0.5-20 mL, intra-catheter, PRN sodium chloride 0.9%, 0.5-20 mL, intra-catheter, PRN Lactated Ringer's, 125 mL/hr, Last Rate: 125 mL/hr (10/18/23 1316) Lactated Ringer's, 30 mL/hr, Last Rate: 30 mL/hr (10/18/23 0923) sodium chloride 0.9%, 30 mL/hr Vitals Most Recent Vitals: T 36.6 ??C (97.9 ??F), HR 77, BP 131/71, RR 16, SpO2 97 %. 24hr Min/Max: Temp Min: 36.5 ??C (97.7 ??F) Max: 37.7 ??C (99.9 ??F) Pulse Min: 66 Max: 95 BP Min: 131/71 Max: 152/81 Resp Min: 16 Max: 19 SpO2 Min: 93 % Max: 100 % Intake/Output Summary (Last 24 hours) at 10/18/2023 1715 Last data filed at 10/18/2023 1405 Gross per 24 hour Intake 750 ml Output 1455 ml Net -705 ml Physical Exam General: NAD Lungs: Clear to auscultation in all lung muñoz, unlabored Cardiovascular: RRR, normal S1 and S2, no murmurs, no JVD, edema absent GI: Soft, non-tender, non-distended, bowel sounds +, no organomegaly Skin: No new rashes, lesions or bruises on visible skin Extremities: NAD, harris in place draining camilo urine, left nephrostomy tube. Neurologic: AOx4, CNII-XII intact, weakness of left quadriceps otherwise, normal strength and sensation Psychiatric: Normal affect and mood I have reviewed the patient's vital signs. Lines, Drains, Airways Peripheral IV 10/13/23 20 G Right Forearm (Active) Peripheral IV 10/13/23 20 G Left Antecubital (Active) Peripheral IV 10/18/23 18 G Right Hand (Active) Nephrostomy Left 10 Fr. (Active) Urethral Catheter Non-latex (Active) Labs/Diagnostic Review Na 133 Cl 100 BUN 12 K 3.5 CO2 27 Cr 0.97 Mg -, G AST - ALT - Alk Phos - Ca 8.4 TP - Alb - Total Bili: - Direct Bili: - \ Hgb 11.7 / WBC 11.6 -------- Plt 256 / MCV 90.5 \ INR 1.11 (Labs above are the most recent result obtained in the last 24 hours. For additional labs/trends, see Epic.) I have reviewed the laboratory results. Imaging Review Dexa Axial Skeleton Bone Density 1 or 2 Site Result Date: 10/18/2023 1. The bone mineral density of the lumbar spine is normal. 2. The bone mineral density of the left femoral neck is normal. 3. The bone mineral density of the left total hip is normal. 4. Overall, theabove findings are normal by WHO criteria. 5. Calculation of fracture risk using the FRAX model is not appropriate in certain settings. It was not performed in this patient because the patient met the following condition(s): normal bone density. General comments regarding interpretation of bone density measurements: A) In children, premenopausal woman and males under age 50 not at increased risk for fractures only Z-scores, not T-scores are used to indicate risk. A Z-score above -2.0 is definedas within the expected range for age and Z-score at or less than -2.0 is below the expected range for age . A Z-score below the expected range for age in a patient with recent fractures and/or chronic corticosteroid treatment is consistent with a diagnosis of osteoporosis. B) In post menopausal women and males over 50, comparison of the measured bone mineral density with the average value in young normal subjects (the T-score ) has been found to be useful in assessing fracture risk. Fracture risk approximately doubles for each 1.0 standard deviation (SD) in individual's hip or spine bone mineral density is below the average value of young normal subjects. The World Health Organization (WHO) has defined T-scores of -1.0 to -2.5 as diagnostic of low bone mass (OSTEOPENIA), and T-scores of -2.5 or lower to be diagnostic of OSTEOPOROSIS, based on the site of lowest bone density. Note that there will be a change in reporting format and reference databases as patients move from the younger population (group A) to the older population (group B) The National Osteoporosis Foundation (www.nof.org) recommends adequate intake of calcium and vitamin D and regular weight-bearing exercise inall patients. They recommend pharmacologic treatment in postmenopausal women and men age 50 and older presenting with any of the followin) Osteoporosis, after appropriate evaluation to exclude sec ondary causes. 2) A hip or vertebral (clinical or radiographic) fracture, regardless of the bone density. 3) Low bone mass (Osteopenia) and one or more of: other prior fractures, secondary causes associated with high risk of fracture (such as glucocorticoid use or total immobilization), or computedhigh risk of fracture (10-yr probability of hip fracture >= 3% or a 10-yr probability of any major osteoporosis-related fracture >= 20% based on the [place].-adapted WHO algorithm), available at http://www.shef.ac.uk/FRAX). Dictated by: Gypsy Pelletier M.D. The radiology attending physician has personally reviewed this study, and had reviewed and/or edited this written report and agrees with it. Electronically signed by: Nikki Bella MD, Ph.D Assessment/Plan Left perinephric collection, 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 Assessment & Plan Likely post procedure complication. Urology following - CT urogram on 10/16 - Continue to trend white count, renal function and fever curve UTI (urinary tract infection) Assessment & Plan - Complicated UTI with the presence of left ureteral stone and Pyelitis - urine culture grew E-coli which is pansusceptible. - Discussion with urology and orthopedic surgery: will keep on ceftriaxone 2 g daily through today,will need to discuss further as pansusceptible and stones were able to be intervened upon with lithotripsy -Antibiotics as above. Lumbar radiculopathy Assessment & Plan He has been planned for plan for [...] and thoracic spine. Per ortho, Hold DVT prophylaxis, SCD's -discussed with ortho, they prefer holding DVT prophylaxis days prior to surgery. Neurochecks every 4 hours Surgery rescheduled to 10/23/23 Prostate cancer (HCC) Assessment & Plan S/p postprostatectomy HTN (hypertension) Assessment & Plan Hold home irbesartan Restart diltiazem xl * Hydronephrosis with urinary obstruction due to renal calculus Assessment & Plan Presented with generalized weakness with fever and chills with CT evidence of left ureteral stone with hydro s/o cystoscopy. . Retrograde contrast during cystoscopy revealed a tortuous left ureter and contrast which did not fill past the mid ureter at the site of likely impacted left ureteral stone, thus Stent was not placed. Procedure was aborted and 16 F harris placed in bladder to drainage. Also IR guided Ureteral stent placement was attempted, however no calyceal dilation was noted contrast washing down the ureter. 10/14 he underwent successful Ir guided PCN tube placement. -continue ceftriaxone 2g daily -received loading dose of gentamicin on 10/13 -Continue harris catheter for decompression -zofran for nausea -continue IVF 75 ml/hr -Urology following -f/u urine culture growing 2 [...] antibiotics through time of spine surgery though will discuss further Code status : Full Code Diet : Adult Diet Regular PT/OT Dispo Rec : PT Recommendation/Plan: Home with 24 hour supervision, No further PT indicated (Would defer skilled PT follow up until post op) / Supplementary Attestation The total encounter time on this service date was 55 minutes which was spent performing a [id number] encounter and personally completing the provider-level activities documented in the note. This includes time spent prior to the visit and after the visit in direct care of the patient. This time does not include time spent in any separately reportable services. Jimenez Henao MD MILL OPERATOR * Osorio Calle MD - 10/18/2023 6:54 AM CST Orthopaedic Spine Service Daily Progress Note Admit Date: 10/12/2023 Hospital Day: 5 [facility] Dx: L4-L5 radiculopathy, UTI Relevant PMHx: HTN, prostate CA s/p prostatectomy (~2010), GERD, obesity, melanoma (2007), CKD Plan: infxn workup, PENDING OR 10/23 Procedure(s): Interval History: 10/18/23: Doing well. AFVSS overnight. +UOP in catheter. On CTX for UTI (E coli). BCx NGTD (10/11). Exam: 3/5 IP, 2/5 Q, 4+/5 H, 4/5 EHL & TA, 5/5 GSC in LLE o/w 5/5 in BUE/RLE, SILT throughout. Plan for OR this upcoming Tuesday 10/23 pending urologic and medical improvement. Please obtain DEXA scan prior to OR with Spine. Objective Vitals: 24hr Min/Max: Temp Min: 36.5 ??C (97.7 ??F) Max: 36.8 ??C (98.2 ??F) Pulse Min: 63 Max: 95 BP Min: 134/72 Max: 147/84 Resp Min: 16 Max: 18 SpO2 Min: 96 % Max: 100 % I/O last 2 completed shifts: In: - Out: 3215 [Urine:3215] I/O this shift: In: - Out: 590 [Urine:590] Physical Exam: Gen: no acute distress Neuro: A&Ox3 Motor: Muscle Strength Right Left Iliopsoas (L2/3) 5/5 3/5 Quadriceps (L3/4) 5/5 2/5 Tibialis anterior (L4/5) 5/5 4/5 Extensor hallicus longus (L5) 5/5 5/5 Gastrocsoleus complex (S1) 5/5 5/5 Sensation Left upper extremity: SILT C5 to T1 dermatomes. Right upper extremity: SILT C5 to T1 dermatomes. Left lower extremity: SILT L2 to S1 dermatomes. Right lower extremity: SILT L2 to S1 dermatomes. Long-tract signs: Negative Milner's BUE 0 beats clonus BLE Vascular: Bilateral Upper Extremity: fingers WWP Bilateral Lower Extremity: toes WWP Lab/Diagnostic Review: Recent Labs Lab Units 10/17/23 2252 10/14/23 0630 SODIUM mmol/L 133* 136 POTASSIUM PLASMA mmol/L 3.5 3.4 CHLORIDE mmol/L 100 101 CO2 mmol/L 27 24 ANIONGAP mmol/L 6 11 GLUCOSE mg/dL 186 153 BUN SERUM mg/dL 12 24 CREATININE mg/dL 0.97 1.20 CALCIUM mg/dL 8.4* 8.5 ALBUMIN g/dL -- 2.7* ALK PHOS Units/L -- 108 ALT Units/L -- 67* AST Units/L -- 49 BILIRUBIN TOTAL mg/dL -- 0.5 WBC K/cumm 11.6* 9.4 HEMOGLOBIN g/dL 11.7* 11.4* HEMATOCRIT % 33.3* 32.2* PLATELETS K/cumm 256 134* NEUTROS PCT % 77.7 79.0 LYMPHS PCT % 11.7 6.3 MONOS PCT % 6.8 13.3 EOS PCT % 1.7 0.5 APTT sec 32 -- INR 1.11 -- Micro: Lab Results Component Value Date MICROBIOLOGY Final Report: No growth 10/14/2023 MICROBIOLOGY Preliminary Report: No growth to date. 10/13/2023 MICROBIOLOGY Preliminary Report: No growth to date. 10/13/2023 MICROBIOLOGY Final Report: No growth 10/12/2023 MICROBIOLOGY Final Report: No growth 10/12/2023 MICROBIOLOGY (.) 10/12/2023 Final Report: Greater than or equal to 100,000 colonies/mL of Escherichia coli Greater than or equal to 100,000 colonies/mL of Escherichia coli #2 For susceptibility results, refer to accession number [id number] on the urine culture from 10/11/23 MICROBIOLOGY (.) 10/11/2023 Final Report: Greater than or equal to 100,000 colonies/mL of Escherichia coli Greater than or equal to 100,000 colonies/mL of Escherichia coli #2 MICROBIOLOGY 03/15/2023 Final Report: Less than 100,000 colonies/mL (clinically insignificant growth based on current clinical standards) MICROBIOLOGY Final Report: No growth 09/24/2019 PLAN: - Appreciate care by Hospitalist team and Urology. - Continue abx - Plan for OR next week, possibly 10/23 - Please obtain DEXA scan prior to 10/23 - Hold DVT ppx until after spine surgery Please call with questions during daytime. See below for overnight issues. If you know the resident's name on the appropriate orthopaedic surgery team, please use [email or web address] to page resident directly. If questions arise and the appropriate resident can't be reached or you are calling overnight, please contact [phone] ([place]- 7:30 PM - 6:30 AM - Floor Resident) or [phone] (24 hours/day - Consult Resident) Cosigned by Hayder Vu MD at 10/18/2023 12:31 PM HOB MILL OPERATOR MILL OPERATOR MILL OPERATOR * Michelle Harris PA - 10/17/2023 3:10 PM CST Images from the original note were not included. Interventional Radiology Progress Note Patient History: 73yoM w/ L hydroureter due to obstructing stone s/p L PCN placement on 08/16. Interval History: NAEON Exam: General: alert & oriented X 3, NAD, sitting up comfortably in bed Skin: warm and well perfused, L PCN with clean, dry dressing, stitch intact and blood-tinged urine to bag C/V: normal rate and rhythm Pulm: normal respirations, nonlabored breathing on RA Abdomen: soft, NT/ND Temp: [36.5 ??C (97.7 ??F)-37.1 ??C (98.8 ??F)] 36.5 ??C (97.7 ??F) Pulse: [60-64] 63 Resp: [16-18] 16 BP: (126-143)/(72-77) 134/72 Drain: L PCN 10F pl 08/16: 200 (10/14), 460 (10/15), 505 (10/16) Cx: PCN cx from 10/14 No Growth (finalized), urine cx from 10/12 E. Coli Labs: Reviewed. Chem/LFT Lab History Latest Ref Rng & Units 10/11/2023 12:18 10/12/2023 19:50 10/13/2023 06:50 10/14/2023 06:30 Labs-Chem/LFT Sodium 135 - 145 mmol/L 132 133 137 136 Creatinine 0.80 - 1.30 mg/dL 1.08 0.99 0.82 1.20 Bilirubin, total 0.1 - 1.2 mg/dL 1.1 0.7 0.5 AST 10 - 50 Units/L 24 50 49 ALT 7 - 55 Units/L 20 68 67 Alk phos 40 - 130 Units/L 120 113 108 CrCl- Actual Body Weight (Cockcroft-Gault) 75.7 77.9 94 64.3 Hematology Lab History Latest Ref Rng & Units 10/11/2023 12:18 10/12/2023 19:50 10/13/2023 06:50 10/14/2023 06:30 Labs - Hematology WBC 3.8 - 9.9 K/cumm 15.2 8.1 6.2 9.4 Total Hb, POC 13.0 - 17.5 g/dL 14.9 13.7 13.3 11.4 Hct 38.9 - 50.3 % 42.6 38.5 37.0 32.2 Plt 150 - 400 K/cumm 148 155 143 134 Neutrophil abs 1.5 - 6.5 K/cumm 12.7 6.4 5.8 7.4 Lymphocytes, abs 0.8 - 3.3 K/cumm 0.8 0.7 0.2 0.6 Assessment and Plan: 73yoM w/ L hydroureter due to obstructing stone s/p L PCN placement on 08/16. - L PCN is working well with ongoing output. - Continue flushing drain with 10 ml NS TID and record in Epic. - Appreciate nursing care. Continue daily dressing changes and as needed, if soiled or dislodged. Monitor skin site. - IR to continue to follow. Michelle Harris PA-C Interventional Radiology Available via [employer] M-F 7 AM until 3 PM. IR call pager M-F after 3 PM or on weekends. If the patient does not already have a follow-up appointment arranged, please place order and then please call the [employer] front services agent at between 7:30 AM and 4:00 PM. MILL OPERATOR * Jimenez Henao MD - 10/17/2023 2:46 PM CST Daily Progress Note Division of Hospital Medicine Name: Hira Evans : 1950 Today's Date: October 17, 2023 Age: 73 y.o. male Admission: 10/12/2023 Bed: [id number] LOS: 4 days Subjective Chief complaint: back pain Interval History VSS. NAEO. States he is feeling OK though rather sleepy with breakthrough pain medication of dilaudid, is asking about oral option prior to using that. Discussion with orthopedic surgery and urology with plan for intevention on stone planned 10/18 and subsequent ortho spine surgery planned for 10/23. Discussion with ortho spine: will need DEXA prior to OR Discussion with urology: continue IV ceftriaxone until intervention and will re- evaluate at that time Vitals: T 36.5 ??C (97.7 ??F), HR 63, BP 134/72, RR 16, SpO2 99 %. Pertinent Blood work: Na - K - BUN - Cr - WBC - Hgb - Plt - Objective Scheduled Meds PRN Meds Infusions [Held by Provider] acyclovir, 400 mg, oral, BID cefTRIAXone, 2,000 mg, intravenous, Q24H CAMMY dilTIAZem XR, 240 mg, oral, BID [Held by Provider] enoxaparin, 40 mg, subcutaneous, Daily-[address], 40 mg, oral, Daily polyethylene glycol, 17 g, oral, Daily sodium chloride 0.9%, 0.5-20 mL, intra-catheter, Q8H CAMMY sodium chloride 0.9%, 0.5-20 mL, intra-catheter, Q8H CAMMY tamsulosin, 0.8 mg, oral, Daily with dinner acetaminophen, 650 mg, oral, Q4H PRN sodium chloride 0.9%, 30 mL, intravenous, PRN sodium chloride 0.9%, 30 mL, intravenous, PRN HYDROmorphone, 0.2 mg, intravenous, Q4H PRN hydrOXYzine, 25 mg, oral, BID PRN ondansetron ODT, 4 mg, oral, Q6H PRN OR ondansetron, 4 mg, intravenous, Q6H PRN oxyCODONE, 5 mg, oral, Q4H PRN ramelteon, 8 mg, oral, Nightly PRN sodium chloride 0.9%, 0.5-20 mL, intra-catheter, PRN sodium chloride 0.9%, 0.5-20 mL, intra-catheter, PRN sodium chloride 0.9%, 30 mL/hr Vitals Most Recent Vitals: T 36.5 ??C (97.7 ??F), HR 63, BP 134/72, RR 16, SpO2 99 %. 24hr Min/Max: Temp Min: 36.5 ??C (97.7 ??F) Max: 37.1 ??C (98.8 ??F) Pulse Min: 60 Max: 64 BP Min: 126/77 Max: 143/72 Resp Min: 16 Max: 18 SpO2 Min: 97 % Max: 99 % Intake/Output Summary (Last 24 hours) at 10/17/2023 1446 Last data filed at 10/17/2023 1215 Gross per 24 hour Intake -- Output 2990 ml Net -2990 ml Physical Exam General: NAD Lungs: Clear to auscultation in all lung muñoz, unlabored Cardiovascular: RRR, normal S1 and S2, no murmurs, no JVD, edema absent GI: Soft, non-tender, non-distended, bowel sounds +, no organomegaly Skin: No new rashes, lesions or bruises on visible skin Extremities: NAD, harris in place draining camilo urine, left nephrostomy tube. Neurologic: AOx4, CNII-XII intact, weakness of left quadriceps otherwise, normal strength and sensation Psychiatric: Normal affect and mood I have reviewed the patient's vital signs. Lines, Drains, Airways Peripheral IV 10/13/23 20 G Right Forearm (Active) Peripheral IV 10/13/23 20 G Left Antecubital (Active) Nephrostomy Left 10 Fr. (Active) Urethral Catheter Double-lumen (Active) Labs/Diagnostic Review Na - Cl - BUN - K - CO2 - Cr - Mg -, Glc: - AST - ALT - Alk Phos - Ca - TP - Alb - Total Bili: - Direct Bili: - \ Hgb - / WBC - -------- Plt - / MCV - \ INR - (Labs above are the most recent result obtained in the last 24 hours. For additional labs/trends, see Epic.) I have reviewed the laboratory results. Imaging Review CT Urogram WO 3D Result Date: 10/16/2023 1. Postprocedural changes of percutaneous nephrostomy tube placement with perinephric hematoma, which is similar to the prior ultrasound. Blood products extend along the left retroperitoneal fascial planes. 2. The obstructing left mid ureteral stone has displaced superiorly within the upper ureter.A stone previously identified in the left inferior renal pole has displaced into the proximal left ureter. A small amount of blood clot is present in the proximal left ureter. 3. Interval improvementin left hydronephrosis with persistent transition point at the left mid-ureter, with associated focal wall thickening. This may represent inflammatory thickening/spasm related to prior impacted stone versus pre-existing stricture predisposing the patient to stone formation. Dictated by: Dmitry Thompson MD The radiology attending physician has personally reviewed this study, and had reviewed and/oredited this written report and agrees with it. Electronically signed by: Eric Irene M.D. Assessment/Plan Left perinephric collection, 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 Assessment & Plan Likely post procedure complication. Urology following - CT urogram on 10/16 - Continue to trend white count, renal function and fever curve UTI (urinary tract infection) Assessment & Plan - Complicated UTI with the presence of left ureteral stone and Pyelitis - urine culture grew E-coli but no sensitivities yet. No previous positive urine cultures so will keep on ceftriaxone 2 g daily. Follow blood cultures -Antibiotics as above. Lumbar radiculopathy Assessment & Plan He has been planned for plan for [...] and thoracic spine. Per ortho, Hold DVT prophylaxis, SCD's -discussed with ortho, they prefer holding DVT prophylaxis days prior to surgery. Neurochecks every 4 hours Surgery rescheduled to 10/23/23 Prostate cancer (HCC) Assessment & Plan S/p postprostatectomy HTN (hypertension) Assessment & Plan Hold home irbesartan Restart diltiazem xl * Hydronephrosis with urinary obstruction due to renal calculus Assessment & Plan Presented with generalized weakness with fever and chills with CT evidence of left ureteral stone with hydro s/o cystoscopy. . Retrograde contrast during cystoscopy revealed a tortuous left ureter and contrast which did not fill past the mid ureter at the site of likely impacted left ureteral stone, thus Stent was not placed. Procedure was aborted and 16 F harris placed in bladder to drainage. Also IR guided Ureteral stent placement was attempted, however no calyceal dilation was noted contrast washing down the ureter. 10/14 he underwent successful Ir guided PCN tube placement. -continue ceftriaxone 2g daily -received loading dose of gentamicin on 10/13 -Continue harris catheter for decompression -zofran for nausea -continue IVF 75 ml/hr -Urology following -f/u urine culture growing 2 [...] surgical plan is made in the interim. -Plan for cystoscopy 10/18 with urology; NPO @ [place] Code status : Full Code Diet : Adult Diet Regular NPO Diet PT/OT Dispo Rec : / Supplementary Attestation The total encounter time on this service date was 60 minutes which was spent performing a adag-lq-xate encounter and personally completing the provider-level activities documented in the note. This includes time spent prior to the visit and after the visit in direct care of the patient. This time does not include time spent in any separately reportable services. Jimenez Henao MD MILL OPERATOR * Luciana Dickerson, PT - 10/17/2023 2:21 PM CST Physical Therapy Physical Therapy Initial Assessment NOTE: This is a summary note for the jones assessments completed during the evaluation session. For full details, review chart review for all flowsheets documented on by this physical therapist on thisdate. Vital signs documented in vital signs flowsheet. Assessment Assessment Prognosis: Fair Problem List: Gait deviations, Decreased strength, Decreased mobility, Pain, Impaired balance Problem List Comments: PT Diagnosis: Severe LLE lumbar radiculopathy 2/2 left L4-L5 disc herniationresults in above listed problems and impairments which prevent full participation in home and community mobility. Barriers to Discharge: Current Mobility Status Plan Plan Plan : Plan of care initiated, If this is the last note, consider this the discharge summary PT Recommendation and Plan Recommendation/Plan PT Recommendation/Plan: Home with 24 hour supervision, No further PT indicated (Would defer skilledPT follow up until post op) PT Frequency during current admission: 2-3x/wk Treatment/Interventions during current admission: Gait training, Therapeutic activity, Therapeutic exercise, Stair training PT - Next Appointment: 10/19/23 PT Evaluation Complete: Yes General Information General Chart Reviewed: Yes Session Type: Evaluation PT Received On: 10/17/23 Safe Environment: Arm band checked, Patient found in supine, Gait belt utilized for all out of bed mobility Subjective: Agreeable to Therapy Additional Pertinent History: HPI: P/f preop appt to ED for foul smelling urine and generalized weakness; UTI with uretral stone and L hydronephrosis s/p nephrostomy, progressive L LE weakness with plan for OR 10/23 PMH: prostate cancer s/p RRP, HTN, severe LLE lumbar radiculopathy 2/2 left L4-L5 disc herniation planned spinal surgery (open L4-L5 posterior spinal fusion with instrumentation, TLIFfrom the left side, laminectomy, with autograft, allograft by Orthopedic surgery) 10/16 Family/Caregiver Present: No Physical Therapy-Patient Goal: Pt. agreeable to PT recommended POC Prior Function Prior Function Level of Reliance: Independent functional transfers, Independent with ambulation Lives With: Spouse Receives Help From: Spouse/Significant other (multimedia educational specialist assist as needed) Fall within the last 6 months: Yes Fall within the last 6 months comment: 5 Prior Function Comments: Pt. reports since onset of back pain, he briefly was using a WC. He then progressed to WW and finally cane. However, since recent worsening of symptoms was utilizing WW Home Living Home Living Type of Home: House Home Layout: One level Home Access: Stairs to enter with rails Entrance Stairs-Rails: Right Entrance Stairs-Number of Steps: 2 Home Mobility Equipment-Available: Wheeled walker, Single point cane, Quad cane- small base Home Mobility Equipment-Currently Using: Wheeled walker Precautions Precautions Precautions: None Precaution Comments: Per orders Pt. with known severe LLE lumbar radiculopathy due to left L4-L5 disc herniation. Ok to work with PT/OT preoperatively with no restriction Pain Pain Assessment Pain Assessment: 0-10 Pain Score: 1 Pain Location: Back (Lumbar) Cognition Cognition Arousal/Alertness: Alert, Appropriate responses to stimuli Orientation : Oriented X4 (person, place, time, situation) Following Commands: Follows all commands and directions without difficulty Safety Judgment: Good awareness of safety precautions 6 Clicks Basic Mobility - 6 Click How much difficulty does the patient have: Turning over in bed: None How much difficulty does the patient currently have: Sitting down and standing up from a chair witharms?: A little How much difficulty does the patient have: Moving from lying on back to sitting on the side of the bed?: A little How much difficulty does the patient have: Moving to and from a bed to a chair including wheelchair?: A little How much help does the patient currently need: Walk in hospital room?: A little How much help from another person does the patient currently need: Climbing 3-5 steps with a railing?: A little Total 6 Click Score (range 6-24): 19 Score Interpretation: 19 Bed Mobility Bed Mobility Bed Mobility: Yes Bed Mobility 1 Bed Mobility From 1: Supine Bed Mobility Type 1: To Bed Mobility to 1: Edge of bed Level of Assistance 1: Modified Independent Bed Mobility Comments 1: Mod I with HOB elevated Transfers Transfers Transfer: Yes Transfer 1 Transfer From 1: Sit Transfer Type 1: To and from Transfer to 1: Stand Transfer Device 1: Wheeled walker Transfer Level of Assistance 1: Standby Assist Trials/Comments 1: For safety Balance Static Sitting Balance Static Sitting-Balance Support: No upper extremity supported, Feet supported Static Sitting-Sitting Surface: Bed Static Sitting-Level of Assistance: Independent Static Standing Balance Static Standing-Balance Support: Bilateral upper extremity supported (with WW) Static Standing-Standing Surface: Floor Static Standing-Level of Assistance: Independent, Close supervision Ambulation Ambulation Ambulation: Yes Ambulation 1 Distance (ft) 1: 110 Surface 1: Level tile Device 1: Wheeled walker Assistance 1: Standby Assist Gait: Requires verbal cues to 1: Pace activity Gait Deviations 1: Phyllis - decreased, Step length - decreased (Noted forward flexed posture with knee hyperextension on L LE during stance) Stairs Stairs Stairs: No Curbs RLE Assessment RLE Assessment RLE Assessment: Within Functional Limits Strength RLE R Knee Extension: 4/5 R Ankle Dorsiflexion: 4/5 LLE Assessment LLE Assessment LLE Assessment: Exceptions to WFL Strength LLE L Knee Extension: 1/5 L Ankle Dorsiflexion: 3+/5 Equipment Used Safe Environment End of Session Safe Environment End of Therapy Session: Patient left in chair, Overbed table within reach, Call light within reach, Bed in lowest position with wheels locked Other Comments Other Comments Other PT Comments: After objective exam, discussed PT POC and DC recommendations with Pt. who verbalized understanding and was agreeable PT Goals Multi-Disciplinary Problems (from Physical Therapy) Active Problems Problem: Mobility Start Date: 10/17/23 Goal Start Date Expected End Date End Date STG - Patient will ambulate 10/17/23 10/31/23 -- Goal Details: 150 feet with WW; supervision Goal Start Date Expected End Date End Date STG - Patient will ascend and descend two stairs 10/17/23 10/31/23 -- Goal Details: supervision Problem: Transfers Start Date: 10/17/23 Goal Start Date Expected End Date End Date STG - Patient will transfer sit to and from stand 10/17/23 10/31/23 -- Goal Details: Modified independent Problem: PT Misc Start Date: 10/17/23 Goal Start Date Expected End Date End Date PT LTG - Misc 1 10/17/23 10/31/23 -- Goal Details: Pt to be modified independent with all mobility to allow return to PLOF MILL OPERATOR * Hayden Youngblood MD - 10/17/2023 8:30 AM CST Orthopaedic Spine Service Progress Note Admit Date: 10/12/2023 Hospital Day: 1 [place] Dx: L4-L5 radiculopathy, UTI Relevant PMHx: HTN, prostate CA s/p prostatectomy (~2010), GERD, obesity, melanoma (2007), CKD Plan: recommend medicine admission for infxn workup, PENDING OR this week Procedure(s): Interval History: 10/17/23: AFVSS overnight. +UOP in catheter. On CTX for UTI (E coli). BCx NGTD (10/11). Exam: 3/5 IP, 2/5 Q, 4+/5 H, 4/5 EHL & TA, 5/5 GSC in LLE o/w 5/5 in BUE/RLE, SILT throughout. Plan for OR next week after acute medical concerns are further addressed. Objective Vitals: 24hr Min/Max: Temp Min: 36.4 ??C (97.6 ??F) Max: 36.8 ??C (98.2 ??F) Pulse Min: 76 Max: 104 BP Min: 129/89 Max: 157/93 Resp Min: 16 Max: 20 SpO2 Min: 92 % Max: 99 % I/O last 2 completed shifts: In: 700 [P.O.:700] Out: 900 [Urine:900] No intake/output data recorded. Physical Exam: Gen: no acute distress Neuro: A&Ox3 Dressing: n/a Wound Vac(s): Not applicable Hemo Vac(s): Not applicable Motor: Muscle Strength Right Left Iliopsoas (L2/3) 5/5 3/5 Quadriceps (L3/4) 5/5 2/5 Tibialis anterior (L4/5) 5/5 4/5 Extensor hallicus longus (L5) 5/5 4/5 Gastrocsoleus complex (S1) 5/5 5/5 Sensation Left lower extremity: SILT L2 to S1 dermatomes. Right lower extremity: SILT L2 to S1 dermatomes. Long-tract signs: 0 beats clonus BLE Negative hoffmans in BUE Vascular: Bilateral Upper Extremity: fingers WWP Bilateral Lower Extremity: toes WWP Lab/Diagnostic Review: Recent Labs Lab Units 10/14/23 0630 10/12/23 1950 10/11/23 1218 SODIUM mmol/L 136 < > 132* POTASSIUM PLASMA mmol/L 3.4 < > 3.3 CHLORIDE mmol/L 101 < > 94* CO2 mmol/L 24 < > 26 ANIONGAP mmol/L 11 < > 12 GLUCOSE mg/dL 153 < > 138 BUN SERUM mg/dL 24 < > 23 CREATININE mg/dL 1.20 < > 1.08 CALCIUM mg/dL 8.5 < > 9.4 ALBUMIN g/dL 2.7* < > 4.1 ALK PHOS Units/L 108 < > 120 ALT Units/L 67* < > 20 AST Units/L 49 < > 24 BILIRUBIN TOTAL mg/dL 0.5 < > 1.1 WBC K/cumm 9.4 < > 15.2* HEMOGLOBIN g/dL 11.4* < > 14.9 HEMATOCRIT % 32.2* < > 42.6 PLATELETS K/cumm 134* < > 148* NEUTROS PCT % 79.0 < > 83.8 LYMPHS PCT % 6.3 < > 5.5 MONOS PCT % 13.3 < > 8.5 EOS PCT % 0.5 < > 0.2 APTT sec -- -- 33 INR -- -- 1.11 < > = values in this interval not displayed. Micro: Lab Results Component Value Date MICROBIOLOGY Preliminary Report: No growth to date. 10/13/2023 MICROBIOLOGY Preliminary Report: No growth to date. 10/12/2023 MICROBIOLOGY Preliminary Report: No growth to date. 10/12/2023 MICROBIOLOGY (.) 10/12/2023 Final Report: Greater than or equal to 100,000 colonies/mL of Escherichia coli Greater than or equal to 100,000 colonies/mL of Escherichia coli #2 For susceptibility results, refer to accession number [id number] on the urine culture from 10/11/23 MICROBIOLOGY (.) 10/11/2023 Preliminary Report: Greater than or equal to 100,000 colonies/mL of Escherichia coli Greater than or equal to 100,000 colonies/mL of Escherichia coli #2 Susceptibility testing results to follow. MICROBIOLOGY 03/15/2023 Final Report: Less than 100,000 colonies/mL (clinically insignificant growth based on current clinical standards) MICROBIOLOGY Final Report: No growth 09/24/2019 PLAN: - Appreciate care by Hospitalist team and Urology. - Ortho Spine will continue to follow the patient's hospital course peripherally. - Plan for OR next week, possibly 10/23. Please call with questions during daytime. See below for overnight issues. If you know the resident's name on the appropriate orthopaedic surgery team, please use [email or web address] to page resident directly. If questions arise and the appropriate resident can't be reached or you are calling overnight, please contact [phone] ([place]- 7:30 PM - 6:30 AM - Floor Resident) or [phone] (24 hours/day - Consult Resident) Cosigned by Hayder Vu MD at 10/17/2023 8:47 AM HOB MILL OPERATOR MILL OPERATOR MILL OPERATOR * Hayder Vu MD - 10/17/2023 7:19 AM CST I have reviewed Mr. Evans's chart and most recent labs and I spoke Urology and Medicine this morning. He remains in the hospital on the Medicine service. He is afebrile with stable vital signs. Urine culture growing E coli. Blood cultures no growth to date. He remains on ceftriaxone. Urology plans to remove the stone and place a stent tomorrow. They believe that he is safe for spine surgery in the days to follow. He continues to have left quadriceps weakness on examination. We will plan to perform his lumbar spine surgery this upcoming Sunday, 10/23 as long as he continues to do well clinically and his urologic infection is being treated. Would plan to keep him on antibiotics until the stent is removed. Please hold DVT chemoprophylaxis until after spine surgery surgery. Please obtain DEXA scan prior to spine surgery. Please call with any questions or concerns. Hayder Vu Jr., MD Sandblast Operator Department of Orthopaedic Surgery Division of Spine Surgery [facility] [place], [place] MILL OPERATOR MILL OPERATOR * Jimenez Henao MD - 10/16/2023 12:31 PM CST Daily Progress Note Division of Hospital Medicine Name: Hira Evans : 1950 Today's Date: October 16, 2023 Age: 73 y.o. male Admission: 10/12/2023 Bed: [id number] LOS: 3 days Subjective Chief complaint: back pain Interval History VSS. NAEO. States urine is clearing up with less PCN output today. Pain remains controlled with PRNdilaudid though still feels he needs the IV medication. and patient are interested in orthopedic follow-up as OR is tentatively scheduled for 10/23 but patient missed pre-operative DEXA scan. PTevaluation is also pending. CT urogram is pending at this time, patient is currently undergoing procedure. Both E coli strains from urine culture on arrival butts-susceptible. Discuss with urology overall recommendations for therapy. Vitals: T 36.7 ??C (98 ??F), HR 56, BP 168/83, RR 17, SpO2 99 %. Pertinent Blood work: Na - K - BUN - Cr - WBC - Hgb - Plt - Objective Scheduled Meds PRN Meds Infusions [Held by Provider] acyclovir, 400 mg, oral, BID cefTRIAXone, 2,000 mg, intravenous, Q24H CAMMY dilTIAZem XR, 240 mg, oral, BID [Held by Provider] enoxaparin, 40 mg, subcutaneous, Daily-[address], 40 mg, oral, Daily polyethylene glycol, 17 g, oral, Daily sodium chloride 0.9%, 0.5-20 mL, intra-catheter, Q8H CAMMY sodium chloride 0.9%, 0.5-20 mL, intra-catheter, Q8H CAMMY tamsulosin, 0.8 mg, oral, Daily with dinner acetaminophen, 650 mg, oral, Q4H PRN sodium chloride 0.9%, 30 mL, intravenous, PRN sodium chloride 0.9%, 30 mL, intravenous, PRN HYDROmorphone, 0.2 mg, intravenous, Q4H PRN hydrOXYzine, 25 mg, oral, BID PRN ioversoL, 125 mL, intravenous, Once in imaging ondansetron ODT, 4 mg, oral, Q6H PRN OR ondansetron, 4 mg, intravenous, Q6H PRN ramelteon, 8 mg, oral, Nightly PRN sodium chloride 0.9%, 0.5-20 mL, intra-catheter, PRN sodium chloride 0.9%, 0.5-20 mL, intra-catheter, PRN sodium chloride 0.9%, 30 mL/hr Vitals Most Recent Vitals: T 36.7 ??C (98 ??F), HR 56, BP 168/83, RR 17, SpO2 99 %. 24hr Min/Max: Temp Min: 36.6 ??C (97.9 ??F) Max: 36.8 ??C (98.2 ??F) Pulse Min: 56 Max: 80 BP Min: 141/72 Max: 168/83 Resp Min: 16 Max: 20 SpO2 Min: 98 % Max: 100 % Intake/Output Summary (Last 24 hours) at 10/16/2023 1235 Last data filed at 10/16/2023 1025 Gross per 24 hour Intake 1380 ml Output 3300 ml Net -1920 ml Physical Exam General: NAD Lungs: Clear to auscultation in all lung muñoz, unlabored Cardiovascular: RRR, normal S1 and S2, no murmurs, no JVD, edema absent GI: Soft, non-tender, non-distended, bowel sounds +, no organomegaly Skin: No new rashes, lesions or bruises on visible skin Extremities: NAD, harris in place draining camilo urine, left nephrostomy tube. Neurologic: AOx4, CNII-XII intact, weakness of left quadriceps otherwise, normal strength and sensation Psychiatric: Normal affect and mood I have reviewed the patient's vital signs. Lines, Drains, Airways Peripheral IV 10/13/23 20 G Right Forearm (Active) Peripheral IV 10/13/23 20 G Left Antecubital (Active) Nephrostomy Left 10 Fr. (Active) Urethral Catheter Double-lumen (Active) Labs/Diagnostic Review Na - Cl - BUN - K - CO2 - Cr - Mg -, Glc: - AST - ALT - Alk Phos - Ca - TP - Alb - Total Bili: - Direct Bili: - \ Hgb - / WBC - -------- Plt - / MCV - \ INR - (Labs above are the most recent result obtained in the last 24 hours. For additional labs/trends, see Epic.) I have reviewed the laboratory results. Imaging Review IR Percutaneous Nephrostomy Left Result Date: 10/14/2023 Successful left percutaneous nephrostomy. Impacted stone in the mid left ureter partially obstructing the ureter. PLAN: Flush the catheter 10 ml of NS every 8 hours to prevent clogging the tube givenhemorrhagic output. Patient needs to have followup after 6-8 weeks for catheter exchange or internalization or possible removal if no definitive surgical plan is made in the interim. Dictated by: Ana Alfaro M.D. The radiology attending physician has personally reviewed this study, and had reviewed and/or edited this written report and agrees with it. Electronically signed by: Kendrick Hughes M.D. Assessment/Plan Left perinephric collection, 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 Assessment & Plan Likely post procedure complication. Urology following - CT urogram on 10/16 - Continue to trend white count, renal function and fever curve UTI (urinary tract infection) Assessment & Plan - Complicated UTI with the presence of left ureteral stone and Pyelitis - urine culture grew E-coli but no sensitivities yet. No previous positive urine cultures so will keep on ceftriaxone 2 g daily. Follow blood cultures -Antibiotics as above. Lumbar radiculopathy Assessment & Plan He has been planned for plan for [...] and thoracic spine. Per ortho, Hold DVT prophylaxis, SCD's -discussed with ortho, they prefer holding DVT prophylaxis days prior to surgery. Neurochecks every 4 hours Surgery rescheduled to 10/23/23 Prostate cancer (HCC) Assessment & Plan S/p postprostatectomy HTN (hypertension) Assessment & Plan Hold home irbesartan Restart diltiazem xl * Hydronephrosis with urinary obstruction due to renal calculus Assessment & Plan Presented with generalized weakness with fever and chills with CT evidence of left ureteral stone with hydro s/o cystoscopy. . Retrograde contrast during cystoscopy revealed a tortuous left ureter and contrast which did not fill past the mid ureter at the site of likely impacted left ureteral stone, thus Stent was not placed. Procedure was aborted and 16 F harris placed in bladder to drainage. Also IR guided Ureteral stent placement was attempted, however no calyceal dilation was noted contrast washing down the ureter. 10/14 he underwent successful Ir guided PCN tube placement. -continue ceftriaxone 2g daily -received loading dose of gentamicin on 10/13 -Continue harris catheter for decompression -zofran for nausea -continue IVF 75 ml/hr -Urology following -f/u urine culture growing 2 E. Coli spp. Both butts sensitive -f/u left kidney aspirate c/s -Flush the catheter 10 ml of NS every 8 hours to prevent clogging the tube given hemorrhagic output. -CT urogram today; read pending Patient needs to have followup after Will need to follow up with IR in 6-8 weeks for catheter exchange or internalization or possible removal if no definitive surgical plan is made in the interim. Code status : Full Code Diet : Adult Diet Regular PT/OT Dispo Rec : / Supplementary Attestation The total encounter time on this service date was 80 minutes which was spent performing a [id number] encounter and personally completing the provider-level activities documented in the note. This includes time spent prior to the visit and after the visit in direct care of the patient. This time does not include time spent in any separately reportable services. Jimenez Henao MD MILL OPERATOR * Collin Barnes MD - 10/16/2023 8:24 AM CST Images from the original note were not included. Interventional Radiology Progress Note Patient History: 73-year-old male with left hydroureter due to obstructing stone s/p L PCN placement on 08/16. Interval History: -460mL PCN output, normal creatinine -Denies flank pain, feeling well Exam: General: alert & oriented X 3, NAD Skin: warm and well perfused Pulm: normal respirations, symmetric chest rise, nonlabored breathing Abdomen: soft, NT/ND, L PCN in place Temp: [36.6 ??C (97.9 ??F)-36.8 ??C (98.2 ??F)] 36.7 ??C (98 ??F) Pulse: [56-80] 56 Resp: [16-20] 17 BP: (141-168)/(72-88) 168/83 Chem/LFT Lab History Latest Ref Rng & Units 10/11/2023 12:18 10/12/2023 19:50 10/13/2023 06:50 10/14/2023 06:30 Labs-Chem/LFT Sodium 135 - 145 mmol/L 132 133 137 136 Creatinine 0.80 - 1.30 mg/dL 1.08 0.99 0.82 1.20 Bilirubin, total 0.1 - 1.2 mg/dL 1.1 0.7 0.5 AST 10 - 50 Units/L 24 50 49 ALT 7 - 55 Units/L 20 68 67 Alk phos 40 - 130 Units/L 120 113 108 CrCl- Actual Body Weight (Cockcroft-Gault) 75.7 77.9 94 64.3 Hematology Lab History Latest Ref Rng & Units 10/11/2023 12:18 10/12/2023 19:50 10/13/2023 06:50 10/14/2023 06:30 Labs - Hematology WBC 3.8 - 9.9 K/cumm 15.2 8.1 6.2 9.4 Total Hb, POC 13.0 - 17.5 g/dL 14.9 13.7 13.3 11.4 Hct 38.9 - 50.3 % 42.6 38.5 37.0 32.2 Plt 150 - 400 K/cumm 148 155 143 134 Neutrophil abs 1.5 - 6.5 K/cumm 12.7 6.4 5.8 7.4 Lymphocytes, abs 0.8 - 3.3 K/cumm 0.8 0.7 0.2 0.6 Lab Results Component Value Date MICROBIOLOGY Preliminary Report: No growth to date. 10/14/2023 Output by Drain (mL) 10/14/23 0700 - 10/14/23 1859 10/14/23 1900 - 10/15/23 0659 10/15/23 0700 - 10/15/23 1859 10/15/23 1900 - 10/16/23 0659 10/16/23 0700 - 10/16/23 0824 Requested LDAs do not have output data documented. Assessment and Plan: 73-year-old male with left hydroureter due to obstructing stone s/p L PCN placement on 08/16. -Continue to flush 10 mL normal saline every 8 hours. -Continue to monitor drainage output. MILL OPERATOR * Hayden Youngblood MD - 10/16/2023 6:46 AM CST Orthopaedic Spine Service Progress Note Admit Date: 10/12/2023 Hospital Day: 1 [facility] Dx: L4-L5 radiculopathy, UTI Relevant PMHx: HTN, prostate CA s/p prostatectomy (~2010), GERD, obesity, melanoma (2007), CKD Plan: recommend medicine admission for infxn workup, PENDING OR this week Procedure(s): Interval History: 10/16/23: AFVSS overnight. +UOP in catheter. On CTX for UTI (E coli). BCx NGTD (10/11). Exam: 4/5 IP, 1/5 Q, 4/5 H, 4/5 EHL & TA, 5/5 GSC in LLE o/w 5/5 in BUE/RLE, SILT throughout. Plan for OR next week after acute medical concerns are further addressed. Objective Vitals: 24hr Min/Max: Temp Min: 36.4 ??C (97.6 ??F) Max: 36.8 ??C (98.2 ??F) Pulse Min: 76 Max: 104 BP Min: 129/89 Max: 157/93 Resp Min: 16 Max: 20 SpO2 Min: 92 % Max: 99 % I/O last 2 completed shifts: In: 700 [P.O.:700] Out: 900 [Urine:900] No intake/output data recorded. Physical Exam: Gen: no acute distress Neuro: A&Ox3 Dressing: n/a Wound Vac(s): Not applicable Hemo Vac(s): Not applicable Motor: Muscle Strength Right Left Iliopsoas (L2/3) 5/5 4/5 Quadriceps (L3/4) 5/5 1/5 Tibialis anterior (L4/5) 5/5 4/5 Extensor hallicus longus (L5) 5/5 4/5 Gastrocsoleus complex (S1) 5/5 5/5 Sensation Left lower extremity: SILT L2 to S1 dermatomes. Right lower extremity: SILT L2 to S1 dermatomes. Long-tract signs: 0 beats clonus BLE Negative hoffmans in BUE Vascular: Bilateral Upper Extremity: fingers WWP Bilateral Lower Extremity: toes WWP Lab/Diagnostic Review: Recent Labs Lab Units 10/14/23 0630 10/12/23 1950 10/11/23 1218 SODIUM mmol/L 136 < > 132* POTASSIUM PLASMA mmol/L 3.4 < > 3.3 CHLORIDE mmol/L 101 < > 94* CO2 mmol/L 24 < > 26 ANIONGAP mmol/L 11 < > 12 GLUCOSE mg/dL 153 < > 138 BUN SERUM mg/dL 24 < > 23 CREATININE mg/dL 1.20 < > 1.08 CALCIUM mg/dL 8.5 < > 9.4 ALBUMIN g/dL 2.7* < > 4.1 ALK PHOS Units/L 108 < > 120 ALT Units/L 67* < > 20 AST Units/L 49 < > 24 BILIRUBIN TOTAL mg/dL 0.5 < > 1.1 WBC K/cumm 9.4 < > 15.2* HEMOGLOBIN g/dL 11.4* < > 14.9 HEMATOCRIT % 32.2* < > 42.6 PLATELETS K/cumm 134* < > 148* NEUTROS PCT % 79.0 < > 83.8 LYMPHS PCT % 6.3 < > 5.5 MONOS PCT % 13.3 < > 8.5 EOS PCT % 0.5 < > 0.2 APTT sec -- -- 33 INR -- -- 1.11 < > = values in this interval not displayed. Micro: Lab Results Component Value Date MICROBIOLOGY Preliminary Report: No growth to date. 10/13/2023 MICROBIOLOGY Preliminary Report: No growth to date. 10/12/2023 MICROBIOLOGY Preliminary Report: No growth to date. 10/12/2023 MICROBIOLOGY (.) 10/12/2023 Final Report: Greater than or equal to 100,000 colonies/mL of Escherichia coli Greater than or equal to 100,000 colonies/mL of Escherichia coli #2 For susceptibility results, refer to accession number [id number] on the urine culture from 10/11/23 MICROBIOLOGY (.) 10/11/2023 Preliminary Report: Greater than or equal to 100,000 colonies/mL of Escherichia coli Greater than or equal to 100,000 colonies/mL of Escherichia coli #2 Susceptibility testing results to follow. MICROBIOLOGY 03/15/2023 Final Report: Less than 100,000 colonies/mL (clinically insignificant growth based on current clinical standards) MICROBIOLOGY Final Report: No growth 09/24/2019 PLAN: - Appreciate care by Hospitalist team and Urology. - Ortho Spine will continue to follow the patient's hospital course peripherally. - Plan for OR next week, possibly 10/23. Please call with questions during daytime. See below for overnight issues. If you know the resident's name on the appropriate orthopaedic surgery team, please use [email or web address] to page resident directly. If questions arise and the appropriate resident can't be reached or you are calling overnight, please contact [phone] ([place]- 7:30 PM - 6:30 AM - Floor Resident) or [phone] (24 hours/day - Consult Resident) Cosigned by Hayder Vu MD at 10/16/2023 7:19 AM HOB MILL OPERATOR MILL OPERATOR MILL OPERATOR * Marquise Lim MD - 10/15/2023 8:52 AM CST Daily Progress Note Division of Hospital Medicine Name: Hira Evans : 1950 Today's Date: October 15, 2023 Age: 73 y.o. male Admission: 10/12/2023 Bed: [id number] LOS: 2 days Subjective Chief complaint: back pain Interval History Hira Evans is a 73 y.o. male w/ a PMH of prostate cancer s/p RALPand severe LLE lumbar radiculopathy 2/2 disc herniation with a planned spinal surgery (open L4-L5 posterior spinal fusion with instrumentation, TLIF from the left side, laminectomy, with autograft, allograft by Orthopedic surgery) on 10/16. He presented for preoperative evaluation with increasing weakness with fever and chills with foul smelling urine and CT scan showed obstructing left ureteral stone with resulting lefthydronephrosis with positive urinalysis and urine culture growing E coli (pending susceptibility) now s/o cystoscopy, unfortunately failed ureteral stenting due to tortous ureter and ?impacted ureteral stone. IR guided Ureteral stent placement was attempted, however no calyceal dilation was noted contrast washing down the ureter. Post procedure, after arrival to the floors he started experiencingvigorous chills and was noted to have some episodes of vomiting. Vitals was noted below.given concern for bacterial seeding post procedure, IV fluids, IV ketorolac and IV gentamicin was given. After discussion with urology, repeat Renal US was scheduled for Am on 10/14 which showed ?increased Hydroureteronephrosis and IR guided PCN placement was successfully performed. Overnight: No new acute events overnight. Complains of some pain in the back radiating to his rightthigh. Nephrostomy tube with 200ml of camilo colored urine output. Has not had a bowel movement in the last 2 days. Vitals: T 36.5 ??C (97.7 ??F), HR 74, BP 150/83, RR 17, SpO2 98 %. Pertinent Blood work: Na 136 K 3.4 BUN 24 Cr 1.20 WBC 9.4 Hgb 11.4 Plt 134 Plan: -Definitive management of ureteric stone per urology outpatient -Plan for repeat Ct urogram per renal US reading -Per Urologychip prior to discharge. Disposition: Pending, PT. Likely in the next [address] urogram Objective Scheduled Meds PRN Meds Infusions [Held by Provider] acyclovir, 400 mg, oral, BID cefTRIAXone, 2,000 mg, intravenous, Q24H CAMMY [Held by Provider] enoxaparin, 40 mg, subcutaneous, Daily-[address], 40 mg, oral, Daily sodium chloride 0.9%, 0.5-20 mL, intra-catheter, Q8H CAMMY sodium chloride 0.9%, 0.5-20 mL, intra-catheter, Q8H CAMMY tamsulosin, 0.8 mg, oral, Daily with dinner acetaminophen, 650 mg, oral, Q4H PRN sodium chloride 0.9%, 30 mL, intravenous, PRN sodium chloride 0.9%, 30 mL, intravenous, PRN HYDROmorphone, 0.2 mg, intravenous, Q4H PRN hydrOXYzine, 25 mg, oral, BID PRN ketorolac, 15 mg, intravenous, Q8H PRN ondansetron ODT, 4 mg, oral, Q6H PRN OR ondansetron, 4 mg, intravenous, Q6H PRN ramelteon, 8 mg, oral, Nightly PRN sodium chloride 0.9%, 0.5-20 mL, intra-catheter, PRN sodium chloride 0.9%, 0.5-20 mL, intra-catheter, PRN sodium chloride 0.9%, 30 mL/hr Vitals Most Recent Vitals: T 36.5 ??C (97.7 ??F), HR 74, BP 150/83, RR 17, SpO2 98 %. 24hr Min/Max: Temp Min: 36.5 ??C (97.7 ??F) Max: 37.4 ??C (99.4 ??F) Pulse Min: 65 Max: 82 BP Min: 140/84 Max: 180/97 Resp Min: 11 Max: 19 SpO2 Min: 94 % Max: 100 % Intake/Output Summary (Last 24 hours) at 10/15/2023 0852 Last data filed at 10/15/2023 0600 Gross per 24 hour Intake 750 ml Output 2500 ml Net -1750 ml Physical Exam General: NAD Lungs: Clear to auscultation in all lung muñoz, unlabored Cardiovascular: RRR, normal S1 and S2, no murmurs, no JVD, edema absent GI: Soft, non-tender, non-distended, bowel sounds +, no organomegaly Skin: No new rashes, lesions or bruises on visible skin Extremities: NAD, harris in place draining camilo urine, left nephrostomy tube. Neurologic: AOx4, CNII-XII intact, weakness of left quadriceps otherwise, normal strength and sensation Psychiatric: Normal affect and mood I have reviewed the patient's vital signs. Lines, Drains, Airways Peripheral IV 10/13/23 20 G Right Forearm (Active) Peripheral IV 10/13/23 20 G Left Antecubital (Active) Nephrostomy Left 10 Fr. (Active) Urethral Catheter Double-lumen (Active) Labs/Diagnostic Review Na 136 Cl 101 BUN 24 K 3.4 CO2 24 Cr 1.20 Mg -, G AST 49 ALT 67 Alk Phos 108 Ca 8.5 TP - Alb 2.7 Total Bili: 0.5 Direct Bili: - \ Hgb 11.4 / WBC 9.4 -------- Plt 134 / MCV 91.2 \ INR - (Labs above are the most recent result obtained in the last 24 hours. For additional labs/trends, see Epic.) I have reviewed the laboratory results. Imaging Review IR Percutaneous Nephrostomy Left Result Date: 10/14/2023 Successful left percutaneous nephrostomy. Impacted stone in the mid left ureter partially obstructing the ureter. PLAN: Flush the catheter 10 ml of NS every 8 hours to prevent clogging the tube givenhemorrhagic output. Patient needs to have followup after 6-8 weeks for catheter exchange or internalization or possible removal if no definitive surgical plan is made in the interim. Dictated by: Ana Alfaro M.D. The radiology attending physician has personally reviewed this study, and had reviewed and/or edited this written report and agrees with it. Electronically signed by: Kendrick Hughes M.D. US Kidney Complete Result Date: 10/14/2023 1. No hydronephrosis. Given patient had obstructive left ureteral stone with severe hydronephrosis and no interval stone extraction or collecting system decompression at time of this ultrasound, resolved hydronephrosis may be secondary to forniceal rupture. 2. Crescentic left perinephric collection, 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. Consider short term follow-up imaging preferably with CT urogram in 48-72 hours. Electronically signed by: Robert Yeboah M.D. [place] Fluoroscopy < 1 Hour Result Date: 10/14/2023 Unsuccessful attempt at left nephrostomy placement in this patient with a nondilated system. Dictated by: Ana Alfaro M.D. The radiology attending physician has personally reviewed this study, and had reviewed and/or edited this written report and agrees with it. Electronically signed by: Rg Mar M.D. Assessment/Plan * Hydronephrosis with urinary obstruction due to renal calculus Assessment & Plan Presented with generalized weakness with fever and chills with CT evidence of left ureteral stone with hydro s/o cystoscopy. . Retrograde contrast during cystoscopy revealed a tortuous left ureter and contrast which did not fill past the mid ureter at the site of likely impacted left ureteral stone, thus Stent was not placed. Procedure was aborted and 16 F harirs placed in bladder to drainage. Also IR guided Ureteral stent placement was attempted, however no calyceal dilation was noted contrast washing down the ureter. 10/14 he underwent successful Ir guided PCN tube placement. -continue ceftriaxone 2g daily -received loading dose of gentamicin on 10/13 -Continue harris catheter for decompression -zofran for nausea -continue IVF 75 ml/hr -Urology following -f/u urine culture -f/u PCN tube sample c/s UTI (urinary tract infection) Assessment & Plan - Complicated UTI with the presence of left ureteral stone and Pyelitis - urine culture grew E-coli but no sensitivities yet. No previous positive urine cultures so will keep on ceftriaxone 2 g daily. Follow blood cultures -Antibiotics as above. Lumbar radiculopathy Assessment & Plan He has been planned for plan for [...] and thoracic spine. Per ortho, Hold DVT prophylaxis, SCD's Neurochecks every 4 hours Prostate cancer (HCC) Assessment & Plan S/p postprostatectomy HTN (hypertension) Assessment & Plan Hold home irbesartan and diltiazam XLdue to concern for hemodynamic instability post procedure Code status : Full Code Diet : Adult Diet Regular PT/OT Dispo Rec : / Supplementary Attestation The total encounter time on this service date was 80 minutes which was spent performing a [id number] encounter and personally completing the provider-level activities documented in the note. This includes time spent prior to the visit and after the visit in direct care of the patient. This time does not include time spent in any separately reportable services. Marquise Lim MD MILL OPERATOR * Ana Alfaro MD - 10/15/2023 7:20 AM CST Radiology Progress Note Interval History: No acute events overnight. Afebrile. WBC 9.4. Drain output 200 mL clear urine. Intake/Output Summary (Last 24 hours) at 10/15/2023 0721 Last data filed at 10/15/2023 0600 Gross per 24 hour Intake 750 ml Output 2500 ml Net -1750 ml I/O last 2 completed shifts: In: 750 [P.O.:750] Out: 2500 [Urine:2500] Vitals: 10/15/23 0215 BP: 150/83 Pulse: 74 Resp: 17 Temp: 36.5 ??C (97.7 ??F) SpO2: 98% Recent Labs Lab Units 10/14/23 0630 10/13/23 0650 10/12/23 1950 WBC K/cumm 9.4 6.2 8.1 HEMOGLOBIN g/dL 11.4* 13.3 13.7 HEMATOCRIT % 32.2* 37.0* 38.5* PLATELETS K/cumm 134* 143* 155 Recent Labs Lab Units 10/14/23 0630 10/13/23 0650 10/12/23 1950 10/11/23 1218 SODIUM mmol/L 136 137 133* 132* POTASSIUM PLASMA mmol/L 3.4 3.7 3.8 3.3 CHLORIDE mmol/L 101 101 97 94* CO2 mmol/L 24 26 27 26 ANIONGAP mmol/L 11 10 9 12 GLUCOSE mg/dL 153 160 166 138 BUN SERUM mg/dL 24 17 22 23 CREATININE mg/dL 1.20 0.82 0.99 1.08 CALCIUM mg/dL 8.5 9.1 9.1 9.4 ALBUMIN g/dL 2.7* 3.6 -- 4.1 ALK PHOS Units/L 108 113 -- 120 ALT Units/L 67* 68* -- 20 AST Units/L 49 50 -- 24 BILIRUBIN TOTAL mg/dL 0.5 0.7 -- 1.1 Recent Labs Lab Units 10/11/23 1218 APTT sec 33 INR 1.11 Lab Results Component Value Date MICROBIOLOGY Preliminary Report: No growth to date. 10/13/2023 MICROBIOLOGY Preliminary Report: No growth to date. 10/13/2023 MICROBIOLOGY Preliminary Report: No growth to date. 10/12/2023 MICROBIOLOGY Preliminary Report: No growth to date. 10/12/2023 MICROBIOLOGY (.) 10/12/2023 Final Report: Greater than or equal to 100,000 colonies/mL of Escherichia coli Greater than or equal to 100,000 colonies/mL of Escherichia coli #2 For susceptibility results, refer to accession number [id number] on the urine culture from 10/11/23 Exam: Left PCN site c/d/i. Assessment and Plan: 73-year old man with partially obstructing left ureteral stone post left PCN placement in 10/14/2023. Continue to flush 10 mL normal saline every 8 hours. Continue to monitor drainage output. MILL OPERATOR * Hayden Youngblood MD - 10/15/2023 7:07 AM CST Orthopaedic Spine Service Progress Note Admit Date: 10/12/2023 Hospital Day: 1 [facility] Dx: L4-L5 radiculopathy, UTI Relevant PMHx: HTN, prostate CA s/p prostatectomy (~2010), GERD, obesity, melanoma (2007), CKD Plan: recommend medicine admission for infxn workup, PENDING OR this week Procedure(s): Interval History: 10/15/23: Successful PCN yesterday w/ IR. HTN yesterday o/w AFVSS overnight. +UOP in catheter. Cr: 1.20, H/H: 11.4/32.2, WBC: 9.4. On CTX for UTI + Gent on 10/13. BCx NGTD (10/11). Exam: 4/5 IP, 2/5 Q,4/5 H, 4/5 EHL & TA, 5/5 GSC in LLE o/w 5/5 in BUE/RLE, SILT throughout. Plan for OR this week,exact timing pending repeat discussion with patient today. Objective Vitals: 24hr Min/Max: Temp Min: 36.4 ??C (97.6 ??F) Max: 36.8 ??C (98.2 ??F) Pulse Min: 76 Max: 104 BP Min: 129/89 Max: 157/93 Resp Min: 16 Max: 20 SpO2 Min: 92 % Max: 99 % I/O last 2 completed shifts: In: 700 [P.O.:700] Out: 900 [Urine:900] No intake/output data recorded. Physical Exam: Gen: no acute distress Neuro: A&Ox3 Dressing: n/a Wound Vac(s): Not applicable Hemo Vac(s): Not applicable Motor: Muscle Strength Right Left Iliopsoas (L2/3) 5/5 4/5 Quadriceps (L3/4) 5/5 2/5 Tibialis anterior (L4/5) 5/5 4/5 Extensor hallicus longus (L5) 5/5 4/5 Gastrocsoleus complex (S1) 5/5 5/5 5/5 in BUE deltoid, biceps, triceps, WE/WF, all around presser Sensation Left lower extremity: SILT L2 to S1 dermatomes. Right lower extremity: SILT L2 to S1 dermatomes. Long-tract signs: 0 beats clonus BLE Negative hoffmans in BUE Vascular: Bilateral Upper Extremity: fingers WWP Bilateral Lower Extremity: toes WWP Lab/Diagnostic Review: Recent Labs Lab Units 10/14/23 0630 10/12/23 1950 10/11/23 1218 SODIUM mmol/L 136 < > 132* POTASSIUM PLASMA mmol/L 3.4 < > 3.3 CHLORIDE mmol/L 101 < > 94* CO2 mmol/L 24 < > 26 ANIONGAP mmol/L 11 < > 12 GLUCOSE mg/dL 153 < > 138 BUN SERUM mg/dL 24 < > 23 CREATININE mg/dL 1.20 < > 1.08 CALCIUM mg/dL 8.5 < > 9.4 ALBUMIN g/dL 2.7* < > 4.1 ALK PHOS Units/L 108 < > 120 ALT Units/L 67* < > 20 AST Units/L 49 < > 24 BILIRUBIN TOTAL mg/dL 0.5 < > 1.1 WBC K/cumm 9.4 < > 15.2* HEMOGLOBIN g/dL 11.4* < > 14.9 HEMATOCRIT % 32.2* < > 42.6 PLATELETS K/cumm 134* < > 148* NEUTROS PCT % 79.0 < > 83.8 LYMPHS PCT % 6.3 < > 5.5 MONOS PCT % 13.3 < > 8.5 EOS PCT % 0.5 < > 0.2 APTT sec -- -- 33 INR -- -- 1.11 < > = values in this interval not displayed. Micro: Lab Results Component Value Date MICROBIOLOGY Preliminary Report: No growth to date. 10/13/2023 MICROBIOLOGY Preliminary Report: No growth to date. 10/12/2023 MICROBIOLOGY Preliminary Report: No growth to date. 10/12/2023 MICROBIOLOGY (.) 10/12/2023 Final Report: Greater than or equal to 100,000 colonies/mL of Escherichia coli Greater than or equal to 100,000 colonies/mL of Escherichia coli #2 For susceptibility results, refer to accession number [id number] on the urine culture from 10/11/23 MICROBIOLOGY (.) 10/11/2023 Preliminary Report: Greater than or equal to 100,000 colonies/mL of Escherichia coli Greater than or equal to 100,000 colonies/mL of Escherichia coli #2 Susceptibility testing results to follow. MICROBIOLOGY 03/15/2023 Final Report: Less than 100,000 colonies/mL (clinically insignificant growth based on current clinical standards) MICROBIOLOGY Final Report: No growth 09/24/2019 PLAN: - Appreciate care by Hospitalist team and Urology. - Ortho Spine will continue to follow the patient's hospital course peripherally. - Will discuss with Dr. Vu regarding OR timing in light of UTI and ureteral stone. Plan for this week--exact timing pending Please call with questions during daytime. See below for overnight issues. If you know the resident's name on the appropriate orthopaedic surgery team, please use [email or web address] to page resident directly. If questions arise and the appropriate resident can't be reached or you are calling overnight, please contact [phone] ([facility] 7:30 PM - 6:30 AM - Floor Resident) or [phone] (24 hours/day - Consult Resident) Cosigned by Hayder Vu MD at 10/15/2023 8:54 AM HOB MILL OPERATOR MILL OPERATOR MILL OPERATOR Associated attestation - Hayder Vu Jr., MD - 10/15/2023 8:54 AM HOB MILL OPERATOR Attending Attestation I have seen and examined the patient on 10/15/23 in the Hospital. I have also spoken with his primary physician, Dr. Lim. Percutaneous nephrostomy was performed yesterday. He remains on antibiotics. Blood cultures remain no growth to date. On exam, he has 5/5 strength throughout the right lower extremity. He has 4/5 strength in the left iliopsoas, 1/5 strength in left quadriceps, 4/5 strength in the left tibialis anterior and EHL, and 5/5 strength in the right gastrocsoleus. I spoke with him and his , Phan, this morning about his situation. 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 For this reason, we had recommended surgery to decompress the left L4 nerve in an urgent fashion; however, he has had this severe medical exacerbation with a UTI and possible sepsis requiring hospitalization with Urology and Interventional Radiology interventions. We will plan to perform surgery at a time when he has recovered sufficiently from his acute medicalexacerbation so that he may have the greatest likelihood of avoiding perioperative complications and infection of the lumbar spine instrumentation. I discussed this with Dr. Lim and we would tentatively plan to perform surgery a week from tomorrow, on October 23. Again, we discussed the possibility that his left quadriceps weakness does not improve after surgery or that it improves but not back to his baseline strength. Mr. Evans and Phan understand and agree. Greatly appreciate Medicine, Urology, and IR teams' efforts in taking care of Mr. Evans. Hayder Vu Jr., MD Sandblast Operator Department of Orthopaedic Surgery Division of Spine Surgery [facility] [place], [place] [employer] done by [employer]; therefore, variances and inaccuracies may occur. * Kasey Dahl MD - 10/14/2023 8:55 AM CST Orthopaedic Spine Service Progress Note Admit Date: 10/12/2023 Hospital Day: 1 [facility] Dx: L4-L5 radiculopathy, UTI Relevant PMHx: HTN, prostate CA s/p prostatectomy (~2010), GERD, obesity, melanoma (2007), CKD Plan: recommend medicine admission for infxn workup, PENDING OR 10/16 Procedure(s): Interval History: Admitted w ureteral stone & UTI. Urology unsuccessfully attempted stenting yesterday. Urology following, renal ultrasound today. Objective Vitals: 24hr Min/Max: Temp Min: 36.4 ??C (97.6 ??F) Max: 36.8 ??C (98.2 ??F) Pulse Min: 76 Max: 104 BP Min: 129/89 Max: 157/93 Resp Min: 16 Max: 20 SpO2 Min: 92 % Max: 99 % I/O last 2 completed shifts: In: 700 [P.O.:700] Out: 900 [Urine:900] No intake/output data recorded. Physical Exam: Gen: no acute distress Neuro: A&Ox3 Dressing: n/a Wound Vac(s): Not applicable Hemo Vac(s): Not applicable Motor: Muscle Strength Right Left Iliopsoas (L2/3) 5/5 5/5 Tibialis anterior (L4/5) 5/5 5/5 Extensor hallicus longus (L5) 5/5 5/5 Gastrocsoleus complex (S1) 5/5 5/5 Quad exam limited, not fully assessed. Sensation Left lower extremity: SILT L2 to S1 dermatomes. Right lower extremity: SILT L2 to S1 dermatomes. Long-tract signs: 0 beats clonus BLE Vascular: Bilateral Upper Extremity: fingers WWP Bilateral Lower Extremity: toes WWP Lab/Diagnostic Review: Recent Labs Lab Units 10/14/23 0630 10/12/23 1950 10/11/23 1218 SODIUM mmol/L 136 < > 132* POTASSIUM PLASMA mmol/L 3.4 < > 3.3 CHLORIDE mmol/L 101 < > 94* CO2 mmol/L 24 < > 26 ANIONGAP mmol/L 11 < > 12 GLUCOSE mg/dL 153 < > 138 BUN SERUM mg/dL 24 < > 23 CREATININE mg/dL 1.20 < > 1.08 CALCIUM mg/dL 8.5 < > 9.4 ALBUMIN g/dL 2.7* < > 4.1 ALK PHOS Units/L 108 < > 120 ALT Units/L 67* < > 20 AST Units/L 49 < > 24 BILIRUBIN TOTAL mg/dL 0.5 < > 1.1 WBC K/cumm 9.4 < > 15.2* HEMOGLOBIN g/dL 11.4* < > 14.9 HEMATOCRIT % 32.2* < > 42.6 PLATELETS K/cumm 134* < > 148* NEUTROS PCT % 79.0 < > 83.8 LYMPHS PCT % 6.3 < > 5.5 MONOS PCT % 13.3 < > 8.5 EOS PCT % 0.5 < > 0.2 APTT sec -- -- 33 INR -- -- 1.11 < > = values in this interval not displayed. Micro: Lab Results Component Value Date MICROBIOLOGY Preliminary Report: No growth to date. 10/13/2023 MICROBIOLOGY Preliminary Report: No growth to date. 10/12/2023 MICROBIOLOGY Preliminary Report: No growth to date. 10/12/2023 MICROBIOLOGY (.) 10/12/2023 Final Report: Greater than or equal to 100,000 colonies/mL of Escherichia coli Greater than or equal to 100,000 colonies/mL of Escherichia coli #2 For susceptibility results, refer to accession number [id number] on the urine culture from 10/11/23 MICROBIOLOGY (.) 10/11/2023 Preliminary Report: Greater than or equal to 100,000 colonies/mL of Escherichia coli Greater than or equal to 100,000 colonies/mL of Escherichia coli #2 Susceptibility testing results to follow. MICROBIOLOGY 03/15/2023 Final Report: Less than 100,000 colonies/mL (clinically insignificant growth based on current clinical standards) MICROBIOLOGY Final Report: No growth 09/24/2019 PLAN: - Appreciate care by Hospitalist team and Urology. - Ortho Spine will continue to follow the patient's hospital course peripherally. - Will discuss with Dr. Vu regarding OR timing in light of UTI and ureteral stone. Please call with questions during daytime. See below for overnight issues. If you know the resident's name on the appropriate orthopaedic surgery team, please use [email or web address] to page resident directly. If questions arise and the appropriate resident can't be reached or you are calling overnight, please contact [phone] ([facility] 7:30 PM - 6:30 AM - Floor Resident) or [phone] (24 hours/day - Consult Resident) Cosigned by Hayder Vu MD at 10/15/2023 9:21 AM HOB MILL OPERATOR MILL OPERATOR MILL OPERATOR MILL OPERATOR Associated attestation - Hayder Vu Jr., MD - 10/15/2023 9:21 AM HOB MILL OPERATOR I agree with the resident's note with the following exceptions: Motor exam is: 5/5 strength throughout the right lower extremity. He has 4/5 strength in the left iliopsoas, 1/5 strength in left quadriceps, 4/5 strength in the left tibialis anterior and EHL, and 5/5 strength in the right gastrocsoleus. * Marquise Lim MD - 10/14/2023 6:52 AM CST Daily Progress Note Division of Hospital Medicine Name: Hira Evans : 1950 Today's Date: October 14, 2023 Age: 73 y.o. male Admission: 10/12/2023 Bed: [id number] LOS: 1 days Subjective Chief complaint: fever+chills Interval History Brief history::Hira Evans is a 73 y.o. male w/ a PMH of prostate cancer s/p RALPand severe LLE lumbar radiculopathy 2/2 disc herniation with a planned spinal surgery (open L4-L5 posterior spinal fusion with instrumentation, TLIF from the left side, laminectomy, with autograft, allograft by Orthopedic surgery) on 10/16. He presented for preoperative evaluation with increasing weakness with fever and chills with foul smelling urine and CT scan showed obstructing left ureteral stone withresulting left hydronephrosis with positive urinalysis and urine culture growing E coli (pending susceptibility) now s/o cystoscopy, unfortunately failed ureteral stenting due to tortous ureter and ?i mpacted ureteral stone. IR guided Ureteral stent placement was attempted, however no calyceal dilation was noted contrast washing down the ureter. Post procedure, after arrival to the floors he started experiencing vigorous chills and was noted to have some episodes of vomiting. Vitals was noted below.given concern for bacterial seeding post procedure, IV fluids, IV ketorolac and IV gentamicin was given. After discussion with urology, repeat Renal US was scheduled for Am on 10/14 which showed ?increased Hydroureteronephrosis and IR guided PCN placement was successfully performed. His urine output was noted to be <200 ml over the last 24 hours, maintenance fluids were ordered. He remains NPO in anticipation of PCN Vitals: T 36.6 ??C (97.9 ??F), HR 71, BP 163/93, RR 16, SpO2 100 %. Intake/Output Summary (Last 24 hours) at 10/14/2023 1524 Last data filed at 10/14/2023 0600 Gross per 24 hour Intake 700 ml Output 450 ml Net 250 ml Pertinent Blood work: Na 136 K 3.4 BUN 24 Cr 1.20 WBC 9.4 Hgb 11.4 Plt 134 Objective Scheduled Meds PRN Meds Infusions [Held by Provider] acyclovir, 400 mg, oral, BID cefTRIAXone, 2,000 mg, intravenous, Q24H CAMMY [Held by Provider] enoxaparin, 40 mg, subcutaneous, Daily-[address], 40 mg, oral, Daily sodium chloride 0.9%, 0.5-20 mL, intra-catheter, Q8H CAMMY sodium chloride 0.9%, 0.5-20 mL, intra-catheter, Q8H CAMMY tamsulosin, 0.8 mg, oral, Daily with dinner acetaminophen, 650 mg, oral, Q4H PRN sodium chloride 0.9%, 30 mL, intravenous, PRN sodium chloride 0.9%, 30 mL, intravenous, PRN HYDROmorphone, 0.2 mg, intravenous, Q4H PRN hydrOXYzine, 25 mg, oral, BID PRN ketorolac, 15 mg, intravenous, Q8H PRN ondansetron ODT, 4 mg, oral, Q6H PRN OR ondansetron, 4 mg, intravenous, Q6H PRN ramelteon, 8 mg, oral, Nightly PRN sodium chloride 0.9%, 0.5-20 mL, intra-catheter, PRN sodium chloride 0.9%, 0.5-20 mL, intra-catheter, PRN sodium chloride 0.9%, 75 mL/hr, Last Rate: 75 mL/hr (10/14/23 0902) sodium chloride 0.9%, 30 mL/hr Vitals Most Recent Vitals: T 36.6 ??C (97.9 ??F), HR 71, BP 163/93, RR 16, SpO2 100 %. 24hr Min/Max: Temp Min: 36.6 ??C (97.9 ??F) Max: 36.8 ??C (98.2 ??F) Pulse Min: 65 Max: 93 BP Min: 132/79 Max: 178/87 Resp Min: 11 Max: 20 SpO2 Min: 94 % Max: 100 % Intake/Output Summary (Last 24 hours) at 10/14/2023 1524 Last data filed at 10/14/2023 0600 Gross per 24 hour Intake 700 ml Output 450 ml Net 250 ml Physical Exam General: NAD Lungs: Clear to auscultation in all lung muñoz, unlabored Cardiovascular: RRR, normal S1 and S2, no murmurs, no JVD, edema absent GI: Soft, non-tender, non-distended, bowel sounds +, no organomegaly Skin: No new rashes, lesions or bruises on visible skin Extremities: NAD, harris in place draining camilo urine Neurologic: AOx4, CNII-XII intact, normal strength and sensation Psychiatric: Normal affect and mood I have reviewed the patient's vital signs. Lines, Drains, Airways Peripheral IV 10/13/23 20 G Right Forearm (Active) Peripheral IV 10/13/23 20 G Left Antecubital (Active) Nephrostomy Left 10 Fr. (Active) Urethral Catheter Double-lumen (Active) Labs/Diagnostic Review Na 136 Cl 101 BUN 24 K 3.4 CO2 24 Cr 1.20 Mg -, G AST 49 ALT 67 Alk Phos 108 Ca 8.5 TP - Alb 2.7 Total Bili: 0.5 Direct Bili: - \ Hgb 11.4 / WBC 9.4 -------- Plt 134 / MCV 91.2 \ INR - (Labs above are the most recent result obtained in the last 24 hours. For additional labs/trends, see Epic.) I have reviewed the laboratory results. Imaging Review FL Fluoroscopy < 1 Hour Result Date: 10/14/2023 Unsuccessful attempt at left nephrostomy placement in this patient with a nondilated system. Dictated by: Ana Alfaro M.D. The radiology attending physician has personally reviewed this study, and had reviewed and/or edited this written report and agrees with it. Electronically signed by: Rg Mar M.D. MRI Spine Total Complete W WO Contrast Result Date: 10/13/2023 1. Redemonstrated degenerative disc disease of the lumbar spine notable for a left lateral disc bulge and superimposed protrusion at L4-L5 resulting in moderate right and severe left lateral recess stenosis, similar to prior. Additionally there is continued severe neuroforaminal stenosis on the left at L4-L5 and on the right at L5-S1. There is no high-grade spinal canal or neuroforaminal stenosisinvolving the cervical and thoracic spine. 2. There is flattening of the dorsal cord at T4-T5 whichmay reflect an arachnoid cyst or arachnoid web with associated short segment cord signal abnormality. This can be further characterized with nonemergent CT myelogram. 3. Partially imaged moderate left hydronephrosis, seen to greater advantage on recent CT of the abdomen and pelvis. Dictated by: Aston Vazquez MD The radiology attending physician has personally reviewed this study, and had reviewedand/or edited this written report and agrees with it. Electronically signed by: Kym Buckley M.D. CT Chest Abdomen Pelvis W Contrast Result Date: 10/13/2023 1. Obstructing renal calculus in unchanged position compared to CT 10/11/2023, measuring 6 mm in size. 2. Unchanged retroperitoneal gas on the left side, likely postprocedural. 3. Inflammatory changes in the left perinephric space and retroperitoneum, which can be seen in setting of obstructive uropathy. 4. Gas in the urinary bladder may represent changes due to instrumentation however gas forming bacteria in the setting of obstructive uropathy/obstructive renal stone should also be considered.Dictated by: Govind Rodriguez MD The radiology attending physician has personally reviewed this study, and had reviewed and/or edited this written report and agrees with it. Electronically signed by: Mich Cabrera M.D. Assessment/Plan * Hydronephrosis with urinary obstruction due to renal calculus Assessment & Plan Presented with generalized weakness with fever and chills with CT evidence of left ureteral stone with hydro s/o cystoscopy. . Retrograde contrast during cystoscopy revealed a tortuous left ureter and contrast which did not fill past the mid ureter at the site of likely impacted left ureteral stone, thus Stent was not placed. Procedure was aborted and 16 F harris placed in bladder to drainage. Also IR guided Ureteral stent placement was attempted, however no calyceal dilation was noted contrast washing down the ureter. 10/14 he underwent successful Ir guided PCN tube placement. -continue ceftriaxone 2g daily -received loading dose of gentamicin on 10/13 -Continue harris catheter for decompression -zofran for nausea -continue IVF 75 ml/hr -Urology following -f/u urine culture -f/u PCN tube sample c/s UTI (urinary tract infection) Assessment & Plan - Complicated UTI with the presence of left ureteral stone and Pyelitis - urine culture grew E-coli but no sensitivities yet. No previous positive urine cultures so will keep on ceftriaxone 2 g daily. Follow blood cultures -Antibiotics as above. Lumbar radiculopathy Assessment & Plan He has been planned for plan for [...] and thoracic spine. Per ortho, Hold DVT prophylaxis, SCD's Neurochecks every 4 hours Prostate cancer (HCC) Assessment & Plan S/p postprostatectomy HTN (hypertension) Assessment & Plan Hold home irbesartan and diltiazam XLdue to concern for hemodynamic instability post procedure Code status : Full Code Diet : Adult Diet Regular PT/OT Dispo Rec : / Supplementary Attestation The total encounter time on this service date was 70 minutes which was spent performing a [id number] encounter and personally completing the provider-level activities documented in the note. This includes time spent prior to the visit and after the visit in direct care of the patient. This time does not include time spent in any separately reportable services. Marquise Lim MD MILL OPERATOR * Marquise Lim MD - 10/13/2023 7:43 AM CST Daily Progress Note Division of Hospital Medicine Name: Hira Evans : 1950 Today's Date: October 13, 2023 Age: 73 y.o. male Admission: 10/12/2023 Bed: [id number] LOS: 0 days Subjective Chief complaint: Sepsis due to urinary tract infection with left ureteral stone and hydronephrosis Interval History Brief history:Hira Evans is a 73 y.o. male w/ a PMH of prostate cancer s/p RALPand severeLLE lumbar radiculopathy 2/2 disc herniation with a planned spinal surgery (open L4-L5 posterior spinal fusion with instrumentation, TLIF from the left side, laminectomy, with autograft, allograft byOrthopedic surgery) on 10/16. He presented for preoperative evaluation with increasing weakness with fever and chills with foul smelling urine and CT scan showed obstructing left ureteral stone with resulting left hydronephrosis with positive urinalysis and urine culture growing E coli (pending susceptibility) now s/o cystoscopy, unfortunately failed ureteral stenting due to tortous ureter and ?impacted ureteral stone. IR guided Ureteral stent placement was attempted, however no calyceal dilation was noted contrast washing down the ureter. Post procedure, after arrival to the floors he started experiencing vigorous chills and was noted to have some episodes of vomiting. Vitals was noted below.given concern for bacterial seeding post procedure, IV fluids, IV ketorolac and IV gentamicin was given. Vitals: T 36.4 ??C (97.6 ??F), HR 103, BP 131/75, RR 18, SpO2 95 %. Pertinent Blood work: Na 137 K 3.7 BUN 17 Cr 0.82 WBC 6.2 Hgb 13.3 Plt 143 Plan: -NPO for IR guided left nephrostomy tube placement -continue ceftriaxone 2g daily -F/U urine sensitivity results and fu blood culture Objective Scheduled Meds PRN Meds Infusions acyclovir, 400 mg, oral, BID cefTRIAXone, 2,000 mg, intravenous, Q24H CAMMY enoxaparin, 40 mg, subcutaneous, Daily-2100 gentamicin, 350 mg, intravenous, Once pantoprazole DR, 40 mg, oral, Daily sodium chloride 0.9%, 0.5-20 mL, intra-catheter, Q8H CAMMY acetaminophen, 650 mg, oral, Q4H PRN sodium chloride 0.9%, 30 mL, intravenous, PRN ondansetron ODT, 4 mg, oral, Q6H PRN OR ondansetron, 4 mg, intravenous, Q6H PRN sodium chloride 0.9%, 0.5-20 mL, intra-catheter, PRN Lactated Ringer's, 150 mL/hr sodium chloride 0.9%, 100 mL/hr, Last Rate: 100 mL/hr (10/13/23 0647) sodium chloride 0.9%, 30 mL/hr Vitals Most Recent Vitals: T 36.4 ??C (97.6 ??F), HR 103, BP 131/75, RR 18, SpO2 95 %. 24hr Min/Max: Temp Min: 36 ??C (96.8 ??F) Max: 37.5 ??C (99.5 ??F) Pulse Min: 67 Max: 104 BP Min: 123/77 Max: 157/93 Resp Min: 14 Max: 26 SpO2 Min: 92 % Max: 100 % Intake/Output Summary (Last 24 hours) at 10/13/2023 1146 Last data filed at 10/13/2023 0647 Gross per 24 hour Intake 420 ml Output 700 ml Net -280 ml Physical Exam General: NAD Lungs: Clear to auscultation in all lung muñoz, unlabored Cardiovascular: RRR, normal S1 and S2, no murmurs, no JVD, edema absent GI: Soft, non-tender, non-distended, bowel sounds +, no organomegaly Skin: No new rashes, lesions or bruises on visible skin Extremities: NAD, harris in place draining camilo urine Neurologic: AOx4, CNII-XII intact, normal strength and sensation Psychiatric: Normal affect and mood I have reviewed the patient's vital signs. Lines, Drains, Airways Peripheral IV 10/13/23 20 G Right Forearm (Active) Peripheral IV 10/13/23 20 G Left Antecubital (Active) Urethral Catheter Double-lumen (Active) Labs/Diagnostic Review Na 137 Cl 101 BUN 17 K 3.7 CO2 26 Cr 0.82 Mg -, G AST 50 ALT 68 Alk Phos 113 Ca 9.1 TP - Alb 3.6 Total Bili: 0.7 Direct Bili: - \ Hgb 13.3 / WBC 6.2 -------- Plt 143 / MCV 90.0 \ INR 1.11 (Labs above are the most recent result obtained in the last 24 hours. For additional labs/trends, see Epic.) I have reviewed the laboratory results. Imaging Review MRI Spine Total Complete W WO Contrast Result Date: 10/13/2023 1. Redemonstrated degenerative disc disease of the lumbar spine notable for a left lateral disc bulge and superimposed protrusion at L4-L5 resulting in moderate right and severe left lateral recess stenosis, similar to prior. Additionally there is continued severe neuroforaminal stenosis on the left at L4-L5 and on the right at L5-S1. There is no high-grade spinal canal or neuroforaminal stenosisinvolving the cervical and thoracic spine. 2. There is flattening of the dorsal cord at T4-T5 whichmay reflect an arachnoid cyst or arachnoid web with associated short segment cord signal abnormality. This can be further characterized with nonemergent CT myelogram. 3. Partially imaged moderate left hydronephrosis, seen to greater advantage on recent CT of the abdomen and pelvis. Dictated by: Aston Vazquez MD The radiology attending physician has personally reviewed this study, and had reviewedand/or edited this written report and agrees with it. Electronically signed by: Kym Buckley M.D. CT Chest Abdomen Pelvis W Contrast Result Date: 10/13/2023 1. Obstructing renal calculus in unchanged position compared to CT 10/11/2023, measuring 6 mm in size. 2. Unchanged retroperitoneal gas on the left side, likely postprocedural. 3. Inflammatory changes in the left perinephric space and retroperitoneum, which can be seen in setting of obstructive uropathy. 4. Gas in the urinary bladder may represent changes due to instrumentation however gas forming bacteria in the setting of obstructive uropathy/obstructive renal stone should also be considered.Dictated by: Govind Rodriguez MD The radiology attending physician has personally reviewed this study, and had reviewed and/or edited this written report and agrees with it. Electronically signed by: Mich Cabrera M.D. Assessment/Plan UTI (urinary tract infection) Assessment & Plan - Complicated UTI with the presence of left ureteral stone and Pyelitis - urine culture grew E-coli but no sensitivities yet. No previous positive urine cultures so will keep on ceftriaxone 2 g daily. Follow blood cultures - plan for IR guided left nephrostomy tube placement Lumbar radiculopathy Assessment & Plan He has been planned for plan for [...] stenosis involving the cervical and thoracic spine. Will discuss with ortho prior to discharge. Prostate cancer (HCC) Assessment & Plan S/p postprostatectomy HTN (hypertension) Assessment & Plan Hold home irbesartan for now * Hydronephrosis with urinary obstruction due to renal calculus Assessment & Plan Presented with generalized weakness with fever and chills with CT evidence of left ureteral stone with hydro s/o cystoscopy. . Retrograde contrast during cystoscopy revealed a tortuous left ureter and contrast which did not fill past the mid ureter at the site of likely impacted left ureteral stone, thus Stent was not placed. Procedure was aborted and 16 F harris placed in bladder to drainage. Also IR guided Ureteral stent placement was attempted, however no calyceal dilation was noted contrast washing down the ureter. -continue ceftriaxone 2g daily, loading dose of gentamicin -Continue harris catheter for decompression -ketorolac 15 mg every 6 hours for pain -zofran for nausea -continue IVF 150ml/hr for 6 hours -will discuss with urology about further plans Code status : Full Code Diet : NPO Diet Sips with meds PT/OT Dispo Rec : / Supplementary Attestation Marquise Lim MD MILL OPERATOR documented in this encounter H&P Notes * Chichi Reyes MD - 10/23/2023 10:16 PM CST SICU History and Physical Team: Blue PM 2 Subjective Patient is a 73 y.o. male presented to the ICU with chief complaint of Chief Complaint Patient presents with Urinary Problem HPI: 73 year old male preadmitted since 10/12 for complicated UTI prior undergoing a planned orthopaedic spine surgery. Admit events: 10/12 presented to ED from preoperative anesthesia visit due to concerning UA 10/12 admitted to Medicine found to have left ureteral stone and complicated UTI, started on Keflex (E. Coli) 10/13 attempted left ureteral stent placement by Urology aborted 10/14 left percutaneous nephrostomy by IR 10/18 return to OR with Urology for laser lithotripsy and removal of 2 ureteral stones, removal of nephrostomy tube, placement of left ureteral stent (to remain in place for 3-4 weeks) 10/23: underwent Ortho Spine procedure - open L4-L5 posterior spinal fusion with instrumentation, TLIF from the left side, laminectomy, with autograft, allograft; at end of procedure noted to be shivering with right gaze deviation PACU events: arrived to PACU and witnessed to have tonic-clonic seizure, followed by reported loss of pulses. CPR initiated and achieved ROSC after 2min and 1 dose of epinephrine. Remained with altered mental status and was almost intubated for airway protection (given Versed), when mental status improved enough for safe transport to SICU. On arrival to the SICU, patient is altered and does not follow commands. ABG showed pH 7.38/CO2 37/O2 133/HCO3 22/lactate 4.6/glc 245. Started on vancomycin and ancef per Ortho Spine for postop prophylaxis. Taken urgently to CT for - CT Head (alvarado-white differentiation L frontal pole), CT PE/Abd/Pelv (bilateral PEs, ant rib R2-6, L2-7 frax, L renal hematoma stable from 10/16). PMH: DJD, prostate cancer s/p prostatectomy (2010), HTN Past Medical History: Diagnosis Date Allergic rhinitis [...] 1 tablet (10 mg total) by mouth tugger operator before breakfast cholecalciferol (VITAMIN D-3) 5,000 unit capsule Take 1 capsule (5,000 Units total) by mouth every morning coenzyme Q10 100 mg capsule Take 1 capsule (100 mg total) by mouth tugger operator before breakfast DILT-XR 240 mg 24 hr capsule Take 1 capsule (240 mg total) by mouth 2 (two) times a day 0 fish,bora,flax oils-om3,6,9no1 400-400-400 mg capsule Take 1 tablet by mouth tugger operator before breakfast irbesartan (AVAPRO) 300 mg tablet Take 1 tablet (300 mg total) by mouth every morning Mounjaro 10 mg/0.5 mL pen injector Inject 10 mg under the skin once a week Sunday mupirocin (BACTROBAN) 2 % ointment Apply a small amount to the inside of each nostril, using a clean Q-tip for each nostril, twice a day for 5 days prior to surgery. 22 g 0 naproxen sodium 220 mg capsule Take 1 tablet by mouth 2 (two) times a day as needed (Pain) omeprazole (PriLOSEC) 20 mg capsule Take 1 capsule (20 mg total) by mouth every morning No Known Allergies Social History Tobacco Use Smoking status: Former Packs/day: 1.00 Years: 8.00 Additional pack years: 0.00 Total pack years: 8.00 Types: Cigarettes Start date: 11/05/1968 Quit date: 11/05/1979 Years since quittin.9 Passive exposure: Past Smokeless tobacco: Never Substance [...] by PERLA Conv) Anesthesia problems Neg Hx Review of Systems: Review of Systems unable to be obtained due to altered mental status Vitals: Most Recent : Vitals: 10/23/23 2200 BP: 95/54 Pulse: Resp: Temp: SpO2: Hemodynamics: MAP (mmHg): [86-95] 90 Pulmonary Support: O2 Therapy: None (Room air) O2 Del Method: Nasal cannula O2 Flow Rate (L/min): 2 L/min Intake/Output: Intake/Output Summary (Last 24 hours) at 10/23/20232215 Last data filed at 10/23/20232053 Gross per 24 hour Intake 1645.29 ml Output 2000 ml Net -354.71 ml Physical Exam General: Intermittent jerking Head and Face: Normocephalic, atraumatic. Skin: No cutaneous lesions of the face or neck. Neurologic: does not regard or follow commands HEENT: No scleral icterus or injection. External ears grossly normal. No nasal or oral drainage or discharge or bleeding. Cardiovascular: Extremities are warm and well perfused. Pulmonary: Normal quiet breathing. No respiratory distress, stridor, or wheeze. Abdomen: Abdomen flat MSK: Dressings over surgical site, drain clean and dry Lab/Radiology/Diagnostic Review: Laboratory review: Lab results in the last 24 hours: Recent Results (from the past 24 hour(s)) POC Blood Gas and Chemistries, Venous - Collection Time: 10/23/23 9:50 PM Result Value Ref Range pH, Arturo POC 6.99 (Critical) 7.32 - 7.43 pCO2, arturo POC 84 (Critical) 40 - 50 mmHg pO2, arturo POC 42 mmHg Na, POC 139 135 - 145 mmol/L K POC 5.4 (H) 3.3 - 4.9 mmol/L Cl, POC 103 97 - 110 mmol/L Ionized Ca, POC 4.70 4.50 - 5.10 mg/dL Glucose, POC 172 70 - 199 mg/dL Lactate, POC 9.2 (Critical) 0.7 - 2.2 mmol/L O2 Sat, Arturo POC (Crys) 48 % Base excess, POC -11.7 mmol/L Hct, POC 30.0 (L) 41.4 - 51.6 % Total Hb, POC 10.0 (L) 13.8 - 17.2 g/dL O2 Sat, Arturo POC (Calc) 48 % POC Blood Gas and Chemistries, Arterial - Collection Time: 10/23/23 10:07 PM Result Value Ref Range pH, Art POC 7.12 (Critical) 7.35 - 7.45 pCO2, Art POC 54 (H) 35 - 45 mmHg pO2, Art POC 287 (H) 83 - 108 mmHg Na, POC 137 135 - 145 mmol/L K POC 4.0 3.3 - 4.9 mmol/L Cl, POC 104 97 - 110 mmol/L Ionized Ca, POC 4.67 4.50 - 5.10 mg/dL Glucose, POC 235 (H) 70 - 199 mg/dL Lactate, POC 7.2 (Critical) 0.7 - 2.2 mmol/L SO2 (crys) arterial 100 (H) 90 - 95 % Base excess, POC -11.4 mmol/L HCO3, Art POC 16 (L) 20 - 30 mmol/L Hct, POC 29.0 (L) 41.4 - 51.6 % O2 Sat, Art POC (Calc) 100 % Total Hb, POC 9.5 (L) 13.8 - 17.2 g/dL Assessment /Plan Principal Problem: Hydronephrosis with urinary obstruction due to renal calculus Active Problems: HTN (hypertension) Prostate cancer (HCC) Lumbar radiculopathy Ureteral colic UTI (urinary tract infection) Left perinephric collection, 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 73yo M with perioperative seizure and postop code event. NEURO: #Acute Pain: - dilaudid 0.2 q2 #Acute Encephalopathy - possible perioperative seizure - Keppra loading dose followed by maintenance 1g q12 - CTH w left frontal alvarado-white matter changes > brain MRI - routine EEG - Neurology consulted, appreciate recs: Magui Membreno epilepsy protocol CV: #In-hospital cardiac arrest - Bilateral PE on CT - Pressor support, MAP goal 60-70 (per ICU) - Bedside TTE, EKG - Trop baseline and trend - Lactate 4.6, trend q4 #HTN - Holding home ibersartan PULM: #Acute Respiratory Failure - Bilateral rib fractures following CPR, pulm toilet when stable - Maintaining sats and protecting airway, supplemental O2 per NC GI: Diet: NPO Bowel regimen: n/a PUD PPx: Famotidine IV 20mg BID RENAL: Fluid balance goal: N/A Maintenance IV fluids: D5LR 25mL/hr + 1L bolus NS Electrolyte repletion ordered Cr 1.17 HEME: #s/p spine surgery - Hb/Hct 9.8/32.0 > 9.0/27.3 - No s/s bleeding, no indication for transfusion, continue to monitor closely #Bilateral pulmonary emboli - Heparin gtt (no bolus) ENDO: BG 245 on admission Formerly took Mounjaro, no longer taking ICU SSI ID: #[id number], E. coli - Admit since 10/12 for complex UTI - Urology placed L ureteral stent to stay in place for 3-4 weeks - Keflex therapy completed Antibiotics: - Vancomycin 1500 q12 (10/23- - Ancef 2000 q8 (10/23- - Keflex (10/19-) Cultures: - UA (10/11): E. Coli MSK: #DJD - S/p open L4-L5 posterior spinal fusion with instrumentation, TLIF from the left side, laminectomy, with autograft, allograft; at end of procedure noted to be shivering with right gaze deviation with Ortho Spine 10/23 - Ortho spine following: managing dressings and drain (measure q8) - PT eval once stable - Postop ppx as above TDLA: PIV Francheska Harris Restraints: soft limb DVT prophylaxis: n/a; therapeutic heparin gtt for PEs Chichi Reyes MD 10/23/23 10:16 PM Cosigned by Wilder Arceo Jr., MD at 10/24/2023 5:52 AM HOB MILL OPERATOR MILL OPERATOR MILL OPERATOR Associated attestation - Wilder Arceo Jr., MD - 10/24/2023 5:52 AM HOB MILL OPERATOR Critical Care Time: I have spent 75 minutes in full attendance with this critically ill patient making frequent reassessments and decisions regarding this patient's complex medical care. Critical care time was exclusive of separately billable procedures, treating other patients and teaching time. Blue PM Critical care was necessary to treat or prevent imminent or life-threatening deterioration of the following conditions:does not have any pertinent problems on file. Attending Documentation and Treatment Plan: Undifferentiated Shock; Seizure; Acute Pulmonary emboli,Cardiac arrest, Acute Resp Insuffiencey; Complicated UTI; DJD s/p L4-L5 spinal fusion/lami -Weaned off pressors; needs cardiac workup- ECHO pending -EEG, Abnormal CT (old CVA?), MRI ordered; continue Keppra -O2 support; acute pain control for rib fractures -Heparin gtt- however, has left ruben-renal hematoma- serial H&H -Inciting event unclear - seizure possibly from previous lesion or lower seizure threshold from antibx? -Continue CCM support and closer Neuro monitoring I have seen and examined this patient on the day of service. I have reviewed and confirmed the history, physical exam, laboratory and radiographic data with the house staff as documented in the ICU resident note. I have reviewed and discussed my treatment plan with the ICU team and other medical/telesales consultant staff. Wilder Arceo Jr., MD * Hayder Vu MD - 10/23/2023 3:16 PM CST I have reviewed the H&P, examined the patient, and endorse the findings as written. Plan of Care : Based on the above findings, I consider Hira Evans to be an acceptable risk for : Procedure(s): FUSION SPINAL - POSTERIOR LUMBAR/THORACIC WITH INSTRUMENTATION: L4-5 open posterior spinal fusion with instrumentation, L4-5 transforaminal lumbar interbody fusion, L4-5 direct decompression, spinal cord monitoring, autograft, allograft LAMINECTOMY LUMBAR - POSTERIOR SPINAL CORD MONITORING Exam today: Sensation is intact to light touch throughout bilateral lower extremities. Right lower extremity: 5/5 strength iliopsoas, quadriceps, gastrocsoleus, tibialis anterior, EHL. Left lower extremity: 3/5 strength iliopsoas; 2/5 strength quadriceps; 4/5 strength gastrocsoleus, tibialis anterior, EHL. I have also spoken with his medicine attending, Dr. Moseley, who feels that Mr. Evans is safe and appropriate for OR today from a medical standpoint. MILL OPERATOR MILL OPERATOR Source Note - Severo Merlos MD - 10/13/2023 5:00 AM HOB MILL OPERATOR History and Physical Division of [facility] Name: Hira Evans : 1950 Today's Date: October 13, 2023 Age: 73 y.o. male Admit Date: 10/12/2023 Bed: [id number] LOS: 0 days Subjective Hira Evans is a 73 y.o. male with chief complaint of UTI. HPI Hira Evans is a 73 y.o. male with history of prostate cancer s/p RRP, HTN, severe LLE lumbar radiculopathy 2/2 left L4-L5 disc herniation; planned spinal surgery 10/16; presenting with UTI and progressive LLE weakness. He has been planned for plan for an open L4-L5 posterior spinal fusion with instrumentation, TLIF from the left side, laminectomy, with autograft, allograft by Orthopedic surgery He was found to have UTI as part of his Pre-op work up then asked to present to our ED Patient has no complains other than left leg pain and weakness that has been progressive over that past few months He has no fever, no dysuria but has malodorous smell and dark urine No chest or abdominal pain No SOB, no cough, no diarrhea He has been planned for Review of Systems All other systems were [...] replacement MELANOMA RESECTION Right 2005 right flank PROSTATECTOMY 2009 REPLACEMENT TOTAL KNEE Left 10/17/2021 REVISION TOTAL KNEE ARTHROPLASTY Right 09/30/2019 VASECTOMY 30 years ago No current facility-administered medications on file prior to encounter. Current Outpatient Medications on File Prior to Encounter Medication Sig acyclovir (ZOVIRAX) 400 mg tablet Take 1 tablet (400 mg total) by mouth 2 (two) times a day cephalexin (KEFLEX) 500 mg capsule Take 1 capsule (500 mg total) by mouth daily as needed (30 minutes prior to dental appt) When pt has procedures gets pre antibiotic r/t history knee replacements cetirizine (ZyrTEC) 10 mg tablet Take 1 tablet (10 mg total) by mouth tugger operator before breakfast cholecalciferol (VITAMIN D-3) 5,000 unit capsule Take 1 capsule (5,000 Units total) by mouth every morning coenzyme Q10 100 mg capsule Take 1 capsule (100 mg total) by mouth tugger operator before breakfast DILT-XR 240 mg 24 hr capsule Take 1 capsule (240 mg total) by mouth 2 (two) times a day fish,bora,flax oils-om3,6,9no1 400-400-400 mg capsule Take 1 tablet by mouth tugger operator before breakfast irbesartan (AVAPRO) 300 mg tablet Take 1 tablet (300 mg total) by mouth every morning Mounjaro 10 mg/0.5 mL pen injector Inject 10 mg under the skin once a week Sunday mupirocin (BACTROBAN) 2 % ointment Apply a small amount to the inside of each nostril, using a clean Q-tip for each nostril, twice a day for 5 days prior to surgery. naproxen sodium 220 mg capsule Take 1 tablet by mouth 2 (two) times a day as needed (Pain) omeprazole (PriLOSEC) 20 mg capsule Take 1 capsule (20 mg total) by mouth every morning No Known Allergies Social and Family History Social History Tobacco Use Smoking status: Former Packs/day: 1.00 Years: 8.00 Additional pack years: 0.00 Total pack years: 8.00 Types: Cigarettes Start date: 11/05/1968 Quit date: 11/05/1979 Years since quittin.9 Passive exposure: Past Smokeless tobacco: Never Substance and Sexual Activity Drug use: Yes Frequency: 7.0 times per week Types: Medical marijuana Comment: MJ = edibles daily for pain; Alcohol = 2 glasses of wine per evening Sexual activity: Yes Partners: Female control/protection: Vasectomy Alcohol Use: Not At Risk (10/11/2023) AUDIT-C Frequency of Alcohol Consumption: 4 or [...] by TW Conv) Anesthesia problems Neg Hx Objective Vitals Most Recent Vitals: T 37 ??C (98.6 ??F), HR 71, BP 132/85, RR 18, SpO2 100 %. 24hr Min/Max: Temp Min: 36.4 ??C (97.5 ??F) Max: 37.5 ??C (99.5 ??F) Pulse Min: 69 Max: 88 BP Min: 123/77 Max: 152/80 Resp Min: 16 Max: 26 SpO2 Min: 94 % Max: 100 % Intake/Output Summary (Last 24 hours) at 10/13/2023 0541 Last data filed at 10/13/2023 0330 Gross per 24 hour Intake 420 ml Output 75 ml Net 345 ml Physical Exam Constitutional: General: He is not in acute distress. Appearance: He is not ill-appearing, toxic-appearing or diaphoretic. HENT: Head: Normocephalic and atraumatic. Eyes: Extraocular Movements: Extraocular movements intact. Cardiovascular: Rate and Rhythm: Normal rate. Heart sounds: Normal heart sounds. Pulmonary: Effort: Pulmonary effort is normal. No respiratory distress. Breath sounds: No wheezing. Abdominal: General: Abdomen is flat. Tenderness: There is no abdominal tenderness. Musculoskeletal: General: No swelling. Cervical back: Normal range of motion. Neurological: Mental Status: He is alert and oriented to person, place, and time. Lines, Drains, Airways Peripheral IV 10/12/23 20 G Right Antecubital (Active) Urethral Catheter Double-lumen (Active) Labs/Diagnostic Review Na 133 Cl 97 BUN 22 K 3.8 CO2 27 Cr 0.99 Mg -, G AST 24 ALT 20 Alk Phos 120 Ca 9.1 TP - Alb 4.1 Total Bili: 1.1 Direct Bili: - \ Hgb 13.7 / WBC 8.1 -------- Plt 155 / MCV 92.8 \ INR 1.11 (Labs above are the most recent result obtained in the last 24 hours. For additional labs/trends, see Epic.) I have reviewed the laboratory results. Imaging Review MRI Spine Total Complete W WO Contrast Result Date: 10/13/2023 1. Redemonstrated degenerative disc disease of the lumbar spine notable for a left lateral disc bulge and superimposed protrusion at L4-L5 resulting in moderate right and severe left lateral recess stenosis, similar to prior. Additionally there is continued severe neuroforaminal stenosis on the right at L5-S1. There is no high-grade spinal canal or neuroforaminal stenosis involving the cervical and thoracic spine. 2. Partially imaged moderate left hydronephrosis, seen to greater advantage on recent CT of the abdomen and pelvis. Dictated by: Aston Vazquez MD CT Chest Abdomen Pelvis W Contrast Result Date: 10/12/2023 1. Obstructing renal calculus in unchanged position compared to CT 10/11/2023, measuring 6 mm in size. 2. Unchanged retroperitoneal gas on the left side, likely postprocedural. 3. Inflammatory changes in the left inferior retroperitoneum, which represent a component of pyelitis. Stranding seen around the urinary bladder may represent cystitis. Recommend correlation with urinalysis. Dictated by: Govind Rodriguez MD CT Lumbar Spine WO Contrast Result Date: 10/11/2023 1. Moderate degenerative changes of the lumbar spine, worst at L4-L5, as described in detail above.2. New dilatation of the left renal pelvis and ureter, to the level of a focus of calcification, likely representing a ureteral stone. Dictated by: Tyrone Londono M.D. The radiology attending physician has personally reviewed this study, and had reviewed and/or edited this written report and agrees with it. Electronically signed by: Zac Mcgarry M.D. Assessment/Plan UTI (urinary tract infection) Assessment & Plan - Complicated UTI with the presence of left ureteral stone and Pyelitis - urine culture grew E-coli but no sensitivities yet. No previous positive urine cultures so will keep on ceftriaxone 2 g daily. Follow blood cultures - Failed left ureteral stent placement today by Urology. Ordered IR drainage catheter placement by IR * Hydronephrosis with urinary obstruction due to renal calculus Assessment & Plan Failed left ureteral stent placement by Urology Plan for IR Nephrostomy tube placement by IR Keep NPO Lumbar radiculopathy Assessment & Plan He has been planned for plan for [...] stenosis involving the cervical and thoracic spine. - Now has UTI, likely surgery after his infection resolves Prostate cancer (HCC) Assessment & Plan S/p postprostatectomy HTN (hypertension) Assessment & Plan Hold home irbesartan for now Code status : Full Code Diet : NPO Diet Supplementary Attestation The total encounter time on this service date was 60 minutes which was spent performing a [id number] encounter and personally completing the provider-level activities documented in the note. This includes time spent prior to the visit and after the visit in direct care of the patient. This time does not include time spent in any separately reportable services. Severo Merlos MD MILL OPERATOR * Gabriel Bennett MD - 10/18/2023 9:06 AM CST I have reviewed the H&P, examined the patient, and endorse the findings as written. Plan of Care : Based on the above findings, I consider Hira Evans to be an acceptable risk for : Procedure(s): CYSTOSCOPY PYELOGRAM - RETROGRADE LITHOTRIPSY - LASER URETEROSCOPY MILL OPERATOR Source Note - Fredrick Mcneil MD - 10/12/2023 10:45 PM HOB MILL OPERATOR Images from the original note were not included. Urology Consult Note Subjective Chief Complaint: C/f left obstructing ureteral stone with UTI Requesting provider: Dr. Hargrove History of Present Illness: Hira Evans is a 73 y.o. male w/ a PMH of prostate cancer s/p RALPand severe LLE lumbar radiculopathy 2/2 disc herniation with a planned spinal surgery on 10/16. He presented earlier this morning to a preoperative evaluation for his upcoming surgery and due to concerning symptoms, he was transferred to [facility] ED for further workup. Patient's reports that over the last few days, he has had increasing weakness in his legs and fatigue. She reports that he has had chills and has been drinking a lot of water. He reports more than one month of foul-smelling urine. CT scan was done showing obstructing left ureteral stone with resulting left hydronephrosis. UA appears infected, confirmed by culture growing E coli. Patient does not report fevers. He has not noticed dysuria, urgency, or frequency. No suprapubic orflank pain. No gross hematuria. UA 3+ LE, >50 WBCs, 3+ bacteria, UCx growing E coli Cr 0.99 WBC 8.1(15) Hgb 13.7 The patient's past medical, surgical, were reviewed and noncontributory to this illness/condition except as noted below: The patient's past medical history is notable for: Past Medical History: Diagnosis Date Allergic rhinitis Arthritis OA Cancer (CMS/HCC) (HCC) prostate and melonomia Gastric reflux GERD (gastroesophageal reflux disease) History of melanoma Hypertension Kidney stone Personal history of prostate cancer Pneumonia Seasonal allergies The patient's past surgical history is notable for: Past Surgical History: Procedure Laterality Date FL UPPER GI AIR CONTRAST W KUB Left 09/21/2023 JOINT REPLACEMENT Right 2013 right knee replacement MELANOMA RESECTION Right 2005 right flank PROSTATECTOMY 2009 REPLACEMENT TOTAL KNEE Left 10/17/2021 REVISION TOTAL KNEE ARTHROPLASTY Right 09/30/2019 VASECTOMY 30 years ago Review of systems negative other than what is stated in the HPI. Objective In/Outs: No intake/output data recorded. I/O this shift: In: 20 [IV Piggyback:20] Out: - Physical Exam: Vitals: 10/12/23192410/12/23192910/12/23199910/12/232029 BP: 136/81 143/81 131/83 143/83 Pulse: 88 79 78 69 Resp: 26 18 17 22 Temp: SpO2: 100% 98% 98% 98% Weight: Height: General: In no acute distress Pulmonary: Non-labored breathing Cardiovascular: Well perfused Abdomen: soft, non tender, Non distended : voiding cloudy yellow urine spontaneously Neuro: Alert and oriented Psych: Appropriate and cooperative Labs/Imaging: Chem/LFT Lab History Latest Ref Rng & Units 10/11/2023 12:18 10/12/2023 19:50 Labs-Chem/LFT Sodium 135 - 145 mmol/L 132 133 Creatinine 0.80 - 1.30 mg/dL 1.08 0.99 Bilirubin, total 0.1 - 1.2 mg/dL 1.1 AST 10 - 50 Units/L 24 ALT 7 - 55 Units/L 20 Alk phos 40 - 130 Units/L 120 CrCl- Actual Body Weight (Cockcroft-Gault) 75.7 77.9 Hematology Lab History Latest Ref Rng & Units 10/11/2023 12:18 10/12/2023 19:50 Labs - Hematology WBC 3.8 - 9.9 K/cumm 15.2 8.1 Total Hb, POC 13.0 - 17.5 g/dL 14.9 13.7 Hct 38.9 - 50.3 % 42.6 38.5 Plt 150 - 400 K/cumm 148 155 Neutrophil abs 1.5 - 6.5 K/cumm 12.7 6.4 Lymphocytes, abs 0.8 - 3.3 K/cumm 0.8 0.7 The following images were personally reviewed by me. CT Chest Abdomen Pelvis W Contrast Narrative: EXAMINATION: CT CHEST ABDOMEN PELVIS W CONTRAST HISTORY: 73-year-old with history of robotic prostatectomy who presents with progressive history of cloudy urine. TECHNIQUE: Transaxial computed tomographic images of the chest, abdomen and pelvis were obtained with intravenous contrast according to the standard protocol after the uneventful administration of 69 mL Opti-Ray 350 intravenous contrast. COMPARISON: Lumbar spine MR 10/01/2023 FINDINGS: Symmetric enhancement imaged thyroid. No supraclavicular, axillary lymphadenopathy. The heart size is normal. No pericardial effusion. Coronary artery calcifications are noted. The thoracic aorta and main pulmonary artery are normal in size. Mild dependent atelectasis. No pleural effusion. No pneumothorax. No suspicious pulmonary nodule. Numerous hypoattenuating hepatic lesions are noted, favored represent cysts. There is hypertrophy of the left hemiliver. The gallbladder is normal in size. No intra-extra hepatic biliary ductal dilatation. The pancreas is normal. The spleen is normal. The adrenal glands are normal. The right kidney is normal. There is no hydronephrosis. Punctate radiodensity seen in the superior pole collecting system likely represents a nodular to calculus. Additional hyperdensity seen in the midpole is also likely small nonobstructing calculus. The distal ureter is normal in caliber. There is mild to moderate left-sided hydronephrosis, with large nonobstructing calculus in the inferior collecting system, with engorgement of the renal pelvis, consistent with hydroureteronephrosis. Significant gas can be seen surrounding the ureter, which may represent postprocedural gas which is unchanged compared to CT 10/11/2023. Additionally, there is mild stranding of the distal ureter at the level of the external iliac vessels, which is nonspecific but may represent a component of pyelitis. No significant inflammatory changes are seen in the distended left renal collecting system and proximal ureter. Obstructive calculus is seen in the mid ureter, series 3 image 592 measuring 6 mm in greatest dimension. The urinary bladder has a small locule of gas, likely due to recent instrumentation. Faint stranding seen around the urinary bladder may represent a component of cystitis. Postsurgical changes are seen in the prostatectomy bed. No significant abdominal pelvic lymphadenopathy. No suspicious osseous lesion with redemonstration of degenerative changes in the lumbar spine, better seen on MR 10/01/2023. Impression: 1. Obstructing renal calculus in unchanged position compared to CT 10/11/2023, measuring 6 mm in size. 2. Unchanged retroperitoneal gas on the left side, likely postprocedural. 3. Inflammatory changes in the left inferior retroperitoneum, which represent a component of pyelitis. Stranding seen around the urinary bladder may represent cystitis. Recommend correlation with urinalysis. Dictated by: Govind Rodriguez MD Assessment Hira Evans is a 73 y.o. male w/ a PMH of prostate cancer s/p RALPand severe LLE lumbar radiculopathy 2/2 disc herniation with a planned spinal surgery on 10/16, presented today for preoperative workup and was sent to ED with c/f infectious process. Patient reports 1 month of foul smellingurine, chills, severe thirst, and increased fatigue and weakness in his legs. WBC downtrending to 8from 15. UCx growing E coli. No fevers. CT scan notable for left obstructing ureteral stone with left hydronephrosis. Plan - Keep NPO - To OR for left ureteral stent placement - Recommend admission to medicine postoperatively for management of UTI - Urology will continue to follow Thank you for allowing us to participate in the care of this patient. For any questions or concerns, please page Urology through the punch operator. Vero Tolentino MD 10/12/2023 MILL OPERATOR MILL OPERATOR MILL OPERATOR * Severo Merlos MD - 10/13/2023 5:00 AM CST History and Physical Division of [facility] Medicine Name: Hira Evans : 1950 Today's Date: October 13, 2023 Age: 73 y.o. male Admit Date: 10/12/2023 Bed: [id number] LOS: 0 days Subjective Hira Evans is a 73 y.o. male with chief complaint of UTI. HPI Hira Evans is a 73 y.o. male with history of prostate cancer s/p RRP, HTN, severe LLE lumbar radiculopathy 2/2 left L4-L5 disc herniation; planned spinal surgery 10/16; presenting with UTI and progressive LLE weakness. He has been planned for plan for an open L4-L5 posterior spinal fusion with instrumentation, TLIF from the left side, laminectomy, with autograft, allograft by Orthopedic surgery He was found to have UTI as part of his Pre-op work up then asked to present to our ED Patient has no complains other than left leg pain and weakness that has been progressive over that past few months He has no fever, no dysuria but has malodorous smell and dark urine No chest or abdominal pain No SOB, no cough, no diarrhea He has been planned for Review of Systems All other systems were [...] 2014 right knee replacement MELANOMA RESECTION Right 2005 right flank PROSTATECTOMY 2009 REPLACEMENT TOTAL KNEE Left 10/17/2021 REVISION TOTAL KNEE ARTHROPLASTY Right 09/30/2019 VASECTOMY 30 years ago No current facility-administered medications on file prior to encounter. Current Outpatient Medications on File Prior to Encounter Medication Sig acyclovir (ZOVIRAX) 400 mg tablet Take 1 tablet (400 mg total) by mouth 2 (two) times a day cephalexin (KEFLEX) 500 mg capsule Take 1 capsule (500 mg total) by mouth daily as needed (30 minutes prior to dental appt) When pt has procedures gets pre antibiotic r/t history knee replacements cetirizine (ZyrTEC) 10 mg tablet Take 1 tablet (10 mg total) by mouth tugger operator before breakfast cholecalciferol (VITAMIN D-3) 5,000 unit capsule Take 1 capsule (5,000 Units total) by mouth every morning coenzyme Q10 100 mg capsule Take 1 capsule (100 mg total) by mouth tugger operator before breakfast DILT-XR 240 mg 24 hr capsule Take 1 capsule (240 mg total) by mouth 2 (two) times a day fish,bora,flax oils-om3,6,9no1 400-400-400 mg capsule Take 1 tablet by mouth tugger operator before breakfast irbesartan (AVAPRO) 300 mg tablet Take 1 tablet (300 mg total) by mouth every morning Mounjaro 10 mg/0.5 mL pen injector Inject 10 mg under the skin once a week Sunday mupirocin (BACTROBAN) 2 % ointment Apply a small amount to the inside of each nostril, using a clean Q-tip for each nostril, twice a day for 5 days prior to surgery. naproxen sodium 220 mg capsule Take 1 tablet by mouth 2 (two) times a day as needed (Pain) omeprazole (PriLOSEC) 20 mg capsule Take 1 capsule (20 mg total) by mouth every morning No Known Allergies Social and Family History Social History Tobacco Use Smoking status: Former Packs/day: 1.00 Years: 8.00 Additional pack years: 0.00 Total pack years: 8.00 Types: Cigarettes Start date: 11/05/1968 Quit date: 11/05/1979 Years since quittin.9 Passive exposure: Past Smokeless tobacco: Never Substance and Sexual Activity Drug use: Yes Frequency: 7.0 times per week Types: Medical marijuana Comment: MJ = edibles daily for pain; Alcohol = 2 glasses of wine per evening Sexual activity: Yes Partners: Female control/protection: Vasectomy Alcohol Use: Not At Risk (10/11/2023) AUDIT-C Frequency of Alcohol Consumption: 4 or [...] by TW Conv) Anesthesia problems Neg Hx Objective Vitals Most Recent Vitals: T 37 ??C (98.6 ??F), HR 71, BP 132/85, RR 18, SpO2 100 %. 24hr Min/Max: Temp Min: 36.4 ??C (97.5 ??F) Max: 37.5 ??C (99.5 ??F) Pulse Min: 69 Max: 88 BP Min: 123/77 Max: 152/80 Resp Min: 16 Max: 26 SpO2 Min: 94 % Max: 100 % Intake/Output Summary (Last 24 hours) at 10/13/2023 0541 Last data filed at 10/13/2023 0330 Gross per 24 hour Intake 420 ml Output 75 ml Net 345 ml Physical Exam Constitutional: General: He is not in acute distress. Appearance: He is not ill-appearing, toxic-appearing or diaphoretic. HENT: Head: Normocephalic and atraumatic. Eyes: Extraocular Movements: Extraocular movements intact. Cardiovascular: Rate and Rhythm: Normal rate. Heart sounds: Normal heart sounds. Pulmonary: Effort: Pulmonary effort is normal. No respiratory distress. Breath sounds: No wheezing. Abdominal: General: Abdomen is flat. Tenderness: There is no abdominal tenderness. Musculoskeletal: General: No swelling. Cervical back: Normal range of motion. Neurological: Mental Status: He is alert and oriented to person, place, and time. Lines, Drains, Airways Peripheral IV 10/12/23 20 G Right Antecubital (Active) Urethral Catheter Double-lumen (Active) Labs/Diagnostic Review Na 133 Cl 97 BUN 22 K 3.8 CO2 27 Cr 0.99 Mg -, G AST 24 ALT 20 Alk Phos 120 Ca 9.1 TP - Alb 4.1 Total Bili: 1.1 Direct Bili: - \ Hgb 13.7 / WBC 8.1 -------- Plt 155 / MCV 92.8 \ INR 1.11 (Labs above are the most recent result obtained in the last 24 hours. For additional labs/trends, see Epic.) I have reviewed the laboratory results. Imaging Review MRI Spine Total Complete W WO Contrast Result Date: 10/13/2023 1. Redemonstrated degenerative disc disease of the lumbar spine notable for a left lateral disc bulge and superimposed protrusion at L4-L5 resulting in moderate right and severe left lateral recess stenosis, similar to prior. Additionally there is continued severe neuroforaminal stenosis on the right at L5-S1. There is no high-grade spinal canal or neuroforaminal stenosis involving the cervical and thoracic spine. 2. Partially imaged moderate left hydronephrosis, seen to greater advantage on recent CT of the abdomen and pelvis. Dictated by: Aston Vazquez MD CT Chest Abdomen Pelvis W Contrast Result Date: 10/12/2023 1. Obstructing renal calculus in unchanged position compared to CT 10/11/2023, measuring 6 mm in size. 2. Unchanged retroperitoneal gas on the left side, likely postprocedural. 3. Inflammatory changes in the left inferior retroperitoneum, which represent a component of pyelitis. Stranding seen around the urinary bladder may represent cystitis. Recommend correlation with urinalysis. Dictated by: Govind Rodriguez MD CT Lumbar Spine WO Contrast Result Date: 10/11/2023 1. Moderate degenerative changes of the lumbar spine, worst at L4-L5, as described in detail above.2. New dilatation of the left renal pelvis and ureter, to the level of a focus of calcification, likely representing a ureteral stone. Dictated by: Tyrone Londono M.D. The radiology attending physician has personally reviewed this study, and had reviewed and/or edited this written report and agrees with it. Electronically signed by: Zac Mcgarry M.D. Assessment/Plan UTI (urinary tract infection) Assessment & Plan - Complicated UTI with the presence of left ureteral stone and Pyelitis - urine culture grew E-coli but no sensitivities yet. No previous positive urine cultures so will keep on ceftriaxone 2 g daily. Follow blood cultures - Failed left ureteral stent placement today by Urology. Ordered IR drainage catheter placement by IR * Hydronephrosis with urinary obstruction due to renal calculus Assessment & Plan Failed left ureteral stent placement by Urology Plan for IR Nephrostomy tube placement by IR Keep NPO Lumbar radiculopathy Assessment & Plan He has been planned for plan for [...] stenosis involving the cervical and thoracic spine. - Now has UTI, likely surgery after his infection resolves Prostate cancer (HCC) Assessment & Plan S/p postprostatectomy HTN (hypertension) Assessment & Plan Hold home irbesartan for now Code status : Full Code Diet : NPO Diet Supplementary Attestation The total encounter time on this service date was 60 minutes which was spent performing a [id number] encounter and personally completing the provider-level activities documented in the note. This includes time spent prior to the visit and after the visit in direct care of the patient. This time does not include time spent in any separately reportable services. Severo Merlos MD MILL OPERATOR documented in this encounter Procedure Notes * Luana Brady NP - 10/25/2023 6:45 PM CSTAssociated Order(s): Critical Care Post-Procedure Diagnose(s): Seizures, generalized convulsive (HCC) Critical Care Performed by: Luana Brady NP Authorized by: Luana Brady NP CRITICAL CARE: Team: SICU BLUE Shift: AM Level of Billing: Subsequent Hospital Visit Level 3 My time spent with this patient was 75 minutes: Critical Provider Statement: I have seen and examined the patient on this day of service. I have reviewed and confirmed the history, physical exam, laboratory, and radiographic data as documented in the ICU note. I have reviewed and discussed my treatment plan with the patient's team and other medical/telesales consultant staff. This time was in addition to and separate from care provided by other practitioners on this day of service. MILL OPERATOR * Wilder Arceo Jr., MD - 10/24/2023 11:00 PM CSTAssociated Order(s): Critical Care Post-Procedure Diagnose(s): Cardiac arrest (HCC) Critical Care Performed by: Wilder Arceo Jr., MD Authorized by: Wilder Arceo Jr., MD CRITICAL CARE: Team: SICU BLUE Shift: PM Level of Billing: Critical Care My time spent with this patient was 40 minutes: Critical Provider Statement: I have seen and examined the patient on this day of service. I have reviewed and confirmed the history, physical exam, laboratory and radiologic data as documented in thesigned ICU note. I have reviewed and discussed my treatment plan with the ICU team and other medical/telesales consultant staff, making frequent assessments and decisions [...] or life-threatening deterioration of the following conditions: Acute intracranial hemorrhage, Acute pain/acute postoperative pain and Seizure [id number] mycardial infarction (Non-STEMI) and Cardiac arrest Hypo- or Hyperglycemia This time was spent by me doing the following: Serial laboratory checks Acute pain control, Frequent neurologic exams and Anti-epileptic therapy Glycemic control Initiation/monitoring/titration of anticoagulants Empiric broad coverage antibiotics I spent time reviewing and interpreting data from bedside monitors, laboratory results, and imaging, I spent time discussing the management of this critically ill patient with consultants and the medical staff and I spent time documenting in the medical record MILL OPERATOR * Wilder Arceo Jr., MD - 10/23/2023 11:47 PM CSTAssociated Order(s): Critical Care Post-Procedure Diagnose(s): Cardiac arrest (HCC) Critical Care Performed by: Wilder Arceo Jr., MD Authorized by: Wilder Arceo Jr., MD CRITICAL CARE: Team: SICU BLUE Shift: PM Level of Billing: Critical Care My time spent with this patient was 90 minutes: Critical Provider Statement: I have seen and examined the patient on this day of service. I have reviewed and confirmed the history, physical exam, laboratory and radiologic data as documented in thesigned ICU note. I have reviewed and discussed my treatment plan with the ICU team and other medical/telesales consultant staff, making frequent assessments and decisions [...] or life-threatening deterioration of the following conditions: Acute delirium, Seizure, Acute pain/acute postoperative pain and Encephalopathy/altered mental status Undifferentiated shock and Cardiac arrest Lactic acidosis This time was spent by me doing the following: Serial laboratory checks and Resuscitation with fluids Anti-epileptic therapy Initiation/active titration of vasoactive medications Active and frequent reassessment of respiratory status and oxygen requirements Active and frequent monitoring of intake/output and volumen status I spent time reviewing and interpreting data from bedside monitors, laboratory results, and imaging, I spent time discussing the management of this critically ill patient with consultants and the medical staff and I spent time documenting in the medical record MILL OPERATOR documented in this encounter Consult Notes * Yumiko Rome MD - 10/28/2023 9:48 AM CSTAssociated Order(s): IP CONSULT TO NEUROSURGERY Neurosurgery Consultation Patient: Hira Evans CSN: [id number] : 1950 Admission date: 10/12/2023 Length of stay (days): 15 Consulting: Dr. Mojica Requesting provider: Dr. Vu Reason for consultation: Concern for thin BL frontal SDH History of present illness: Hira Evans is a 73 y.o. male with past medical history of complicated UTIs, HTN, prostateCA s/p prostatectomy (~2010), GERD, obesity, melanoma (2007), CKD with recently diagnosed BL distalR and L main pulmonary artery PEs on therapeutic lovenox, who was incidentally found to have findings concerning for bilateral thin frontal subdural hematomas. Briefly, the patient was admitted on October 12, found to have a left ureteral stone and complicated UTI. On 10/13 the had an attempted left ureteral stone placement by Urology, which was aborted. On the , he had a percutaneous nephrostomy tube placed by IR. Then, on the , he returned to the OR with urology for laser lithotripsy and removal of the 2 stones as well as removal of the nephrostomy tube. At that time urology had placed a left ureteral stent, which is meant to remain in place for the next 3-4 weeks. On 10/23 he underwent an open L4-5 posterior [facility] autograft and [facility]ograft). Postprocedure, in the PACU, he was noted to be shivering with right gaze deviation which was concerning for seizure activity. He then was reportedly witnessed to have undergone a tonic-clonic seizure, with reported loss of pulses. Then he underwent CPR with return of spontaneous circulation after 2 minutes and 1 dose of epinephrine. Given the seizure activity, he underwent CT head on 10/23, which demonstrated findings concerning for bilateral frontal subdural hemorrhages. He also underwent at MRI brain on 10/25 which redemonstrated these findings. He did undergo a CT chest PE protocol on 10/23 which demonstrated acute pulmonary emboli involving the distal right and left main pulmonary arteries extending into all bilateral lobar and multiple bilat eral segmental pulmonary arteries. He had initially been started on a heparin drip, and once he wastherapeutic was transitioned to therapeutic Lovenox. Neurosurgery was consulted for further workup and management. On evaluation, the patient states that he has not had any headaches, vision changes, nausea, vomiting, numbness, tingling, and weakness. He has not noticed any changes otherwise. No recent seizures. He is walking around multiple times per day with PT. Review of systems: A full review of systems was completed and was negative unless otherwise stated in the HPI. Past medical/surgical history: Complicated UTI 2/2 L ureteral stone HTN Prostate CA s/p radical retropubic prostatectomy (~2010) GERD Obesity Melanoma, s/p R flank lesion resection in 2005 CKD Allergies: NKDA Medications: HOME MEDICATIONS : acyclovir (ZOVIRAX) 400 mg tablet cephalexin (KEFLEX) 500 mg capsule cetirizine (ZyrTEC) 10 mg tablet cholecalciferol (VITAMIN D-3) 5,000 unit capsule coenzyme Q10 100 mg capsule DILT-XR 240 mg 24 hr capsule fish,bora,flax oils-om3,6,9no1 400-400-400 mg capsule irbesartan (AVAPRO) 300 mg tablet Mounjaro 10 mg/0.5 mL pen injector mupirocin (BACTROBAN) 2 % ointment naproxen sodium 220 mg capsule omeprazole (PriLOSEC) 20 mg capsule Social history: Former smoker, smoked about a pack a day for 8 years Drinks about 2 glasses of wine per evening Denies other drug use He lives at home with his family. His , Neelima, can be reached at [phone] Family history: Reviewed and noncontributory. Physical Examination: Neuro: Alert, opens eyes spontaneously, regards, follows all commands, orientedx3 Speech is fluent. Answers questions appropriately. PERRL, EOMI, face symmetric, TML Upper Extremity D B T HG HI L 5/5 5/5 5/5 5/5 5/5 R 5/5 5/5 5/5 5/5 5/5 Lower Extremity IP Q H TA Gn EHL L 4/5 2/5 4+/5 4+/5 4+/5 4+/5 R 5/5 5/5 5/5 5/5 5/5 5/5 No pronator drift. Sensation intact to light touch in BUE, BLE Milner's negative Babinski negative. No clonus. Posterior spine incision bandaged, dressing c/d/I One drain in L posterior back, output SS Psych: normal affect Constitutional: no acute distress HENT: normocephalic Cardiovascular: normal rate Pulmonary: normal respiratory effort Abdominal: non-distended Musculoskeletal: normal range of motion Imaging and Labs: CTH 10/23/23: Bilateral frontal thin areas of hyperattenuation, potentially subacute subdural hematomas versus dural thickening MRI 10/25/2023: Bilateral frontal thin areas of hyperattenuation, potentially subacute subdural hematomas versus dural thickening Assessment and Plan Mr. Evans is a 73-year-old male with past medical history of HTN, GERD, CKD, melanoma, prostate cancer status post prostatectomy, who recently underwent ureteral stent placement on 10/18 and L4-5 posterior spinal fusion on 10/23, who suffered a generalized tonic-clonic seizure and cardiac arrest after his spine procedure, found to have bilateral distal R and L main pulmonary artery PEs on 10/23who was started on therapeutic anticoagulation at that time, found to have thin bilateral frontal SDHs. The patient remains asymptomatic from these subdurals at this time. However given that he transitioned from heparin drip to therapeutic Lovenox after the most recent brain MRI was performed, we would recommend repeat head CT now for reassessment of subdural hematoma size. Recommend repeat CT head without contrast for reassessment of subdural hematoma size Plan to follow-up in Neurosurgery Clinic in 4 weeks with a repeat head CT for delayed assessment while patient is on therapeutic anticoagulation. Neurosurgery will task this follow-up ASMs per neurology This plan has been discussed with the chief resident and attending emergency management consultant. The patient was evaluated within 30 minutes of consultation Yumiko Rome MD Cosigned by Jeremy Mojica MD at 10/30/2023 3:48 PM HOB MILL OPERATOR MILL OPERATOR MILL OPERATOR MILL OPERATOR Associated attestation - Jeremy Mojica MD - 10/30/2023 3:48 PM HOB MILL OPERATOR I have seen and examined the patient on 10/29/23. I reviewed relevant imaging personally. I agree with the findings and plan of care as documented in the resident's/fellow's note.. * Viry Patterson MD - 10/26/2023 5:01 PM CSTAssociated Order(s): IP CONSULT TO INTERNAL MEDICINE Medicine Consult Service History and Physical Name: Hira Evans : 1950 Today's Date: October 26, 2023 Age: 73 y.o. male Admit Date: 10/12/2023 Bed: [id number] LOS: 13 days Subjective HPI 73 year old male s/p L4-5 open posterior spinal fusion with instrumentation, L4- 5 transforaminal lumbar interbody fusion, L4-5 direct decompression. PMH: UTI, HTN, prostate CA s/p prostatectomy (~2010), GERD, obesity, melanoma (2007), CKD. Medicine consulted for management of anticoagulation. Patient admitted 10/12 after being found to have L ureteral stone and complicated UTI. Has since undergone laser lithotripsy and removal of 2 ureteral stones, removal of nephrostomy tube, placement ofleft ureteral stent on 10/18, open L4- L5 posterior spinal fusion by Ortho on 10/23 in which he developed seizure-like activity and a subsequent cardiac arrest. Transferred to SICU. CT PE 10/23 with acute pulmonary emboli involving the distal right and left main pulmonary arteries extending into all bilateral lobar and multiple bilateral segmental pulmonary arteries. He was subsequently started on heparin gtt. No signs of heart strain. Since transferring from the floor from SICU, patient has been feeling well. No complaints from a respiratory status. No concerns for bleeding. VSS> Review of Systems All other systems were [...] on File Prior to Encounter Medication Sig acyclovir (ZOVIRAX) 400 mg tablet Take 1 tablet (400 mg total) by mouth 2 (two) times a day cephalexin (KEFLEX) 500 mg capsule Take 1 capsule (500 mg total) by mouth daily as needed (30 minutes prior to dental appt) When pt has procedures gets pre antibiotic r/t history knee replacements cetirizine (ZyrTEC) 10 mg tablet Take 1 tablet (10 mg total) by mouth tugger operator before breakfast cholecalciferol (VITAMIN D-3) 5,000 unit capsule Take 1 capsule (5,000 Units total) by mouth every morning coenzyme Q10 100 mg capsule Take 1 capsule (100 mg total) by mouth tugger operator before breakfast DILT-XR 240 mg 24 hr capsule Take 1 capsule (240 mg total) by mouth 2 (two) times a day fish,bora,flax oils-om3,6,9no1 400-400-400 mg capsule Take 1 tablet by mouth tugger operator before breakfast irbesartan (AVAPRO) 300 mg tablet Take 1 tablet (300 mg total) by mouth every morning Mounjaro 10 mg/0.5 mL pen injector Inject 10 mg under the skin once a week Sunday mupirocin (BACTROBAN) 2 % ointment Apply a small amount to the inside of each nostril, using a clean Q-tip for each nostril, twice a day for 5 days prior to surgery. naproxen sodium 220 mg capsule Take 1 tablet by mouth 2 (two) times a day as needed (Pain) omeprazole (PriLOSEC) 20 mg capsule Take 1 capsule (20 mg total) by mouth every morning No [...] by TW Conv) Anesthesia problems Neg Hx Objective Vitals Most Recent Vitals: T 37.3 ??C (99.1 ??F), HR 73, BP 164/98, RR 18, SpO2 97 %. 24hr Min/Max: Temp Min: 36.6 ??C (97.9 ??F) Max: 37.3 ??C (99.1 ??F) Pulse Min: 57 Max: 97 BP Min: 124/81 Max: 169/51 Resp Min: 14 Max: 21 SpO2 Min: 92 % Max: 100 % Intake/Output Summary (Last 24 hours) at 10/26/2023 1711 Last data filed at 10/26/2023 1520 Gross per 24 hour Intake 445.27 ml Output 1255 ml Net -809.73 ml Physical Exam Constitutional: Well-developed, well-nourished, and in no acute distress HEENT: MMM, hearing grossly intact, normal conjunctiva, no scleral icterus, EOMI Cardiovascular: Regular rate and rhythm, normal S1/S2, no murmurs/rubs/gallops. No peripheral edema Pulmonary: Clear to auscultation bilaterally, normal work of breathing, no wheezing/rales/rhonchi Abdominal: Soft, non-tender, non-distended, bowel sounds present. No guarding or rebound. No hepatosplenomegaly Extremities: Warm and well-perfused, equal pulses, no cyanosis or clubbing Skin: Warm and dry, no noted rashes Neurological: CN grossly intact, no focal deficits appreciated Psychiatric: Mood and affect normal Lines, Drains, Airways Peripheral IV 10/13/23 20 G Left Antecubital (Active) Peripheral IV 10/18/23 18 G Right Hand (Active) Peripheral IV 10/23/23 20 G Left Forearm (Active) Closed/Suction/Open Drain 1 Right Back Bulb 10 Fr. (Active) Labs/Diagnostic Review Na 133 Cl 103 BUN 13 K See Comment CO2 26 Cr 0.86 Mg 1.8, G AST - ALT - Alk Phos - Ca 7.8 TP - Alb - Total Bili: - Direct Bili: - \ Hgb 9.3 / WBC 9.9 -------- Plt 310 / MCV 90.4 \ INR 1.21 (Labs above are the most recent result obtained in the last 24 hours. For additional labs/trends, see Epic.) I have reviewed the laboratory results. Imaging Review MRI Brain Epilepsy W WO Contrast Result Date: 10/25/2023 1. Thin bilateral convexity subdural hematomas, not significantly changed in size compared to the prior head CT. 2. Diffuse pachymeningeal thickening and enhancement likely related to recent lumbar surgery. 3. No MR evidence of abnormalities of neuronal migration. Dictated by: Mandi Humphries radiology attending physician has personally reviewed this study, and had reviewed and/or edited this written report and agrees with it. Electronically signed by: Francia Schmitz M.D. XR Chest 1 View Result Date: 10/25/2023 Comparison made to chest radiograph 10/22/2023 at 6:07 AM. No focal consolidation, pleural effusion, or pneumothorax. Unchanged elevation left hemidiaphragm. Bilateral rib fractures are better appreciated on prior CT. Dictated by: Alice Rios MD, PhD. The radiology attending physician haspersonally reviewed this study, and had reviewed and/or edited this written report and agrees with it. Electronically signed by: Keely Williamson M.D. I have independently reviewed and interpreted the results. Assessment/Plan Hira Evans is a 73 y.o. male s/p L4-5 open posterior spinal fusion with instrumentation, L4-5 transforaminal lumbar interbody fusion, L4-5 direct decompression. PMH: UTI, HTN, prostate CA s/p prostatectomy (~2010), GERD, obesity, melanoma (2007), CKD. Medicine consulted for management of a nticoagulation. Pulmonary embolism (HCC) Assessment & Plan Patient with new PE on CT PE 10/23. Tolerating heparin gtt. Likely provoked in setting of recent surgery. - Patient will need at least 3 months of anticoagulation, and can follow up with PCP for consideration of discontinuation - If no other surgical interventions planned at this time, can transition to therapeutic Lovenox vsEliquis per primary team. Code status : Full Code Diet : Adult Diet Regular Medicine Consults will sign off. Please call [phone] for further questions. Viry Patterson MD Cosigned by Ryan London MD at 10/26/2023 5:20 PM HOB MILL OPERATOR MILL OPERATOR MILL OPERATOR Associated attestation - Ryan London MD - 10/26/2023 5:20 PM HOB MILL OPERATOR Attending Documentation I have seen and examined the patient on 10/26/23. I agree with the findings and plan of care as documented in the resident's/fellow's note. and as discussed with the resident/fellow. Supplementary Attestation Today, I am treating the patient for PE which is in severe exacerbation, progression, or experiencing treatment side effects as evidenced by bilateral PE, as described in the note. Reviewed records from the following unique sources (external institutions or providers from different services): Ortho spine notes. Independently interpreted CT chest which shows bilateral PE. Provoked PE: -Provoked by surgery -Recommend anticoagulation for 3-6 months, final duration to be determined by PCP at f/u -He has tolerated heparin drip -Has chronic bilateral SDH, unchanged on most recent MRI. Consider getting NSGY opinion on risk of anticoagulation in light of SDH -From medicine perspective, patient may be switched to eliquis 5mg BID whenever safe from the surgical perspective Chronic HTN: -May resume home meds in stepwise fashion as BP tolerates. Diltiazem XR 240mg daily, then if tolerates can resume irbesartan 300mg daily (or formulary substitution) 1-2 days later DM2: -Resume mounjaro after discharge. Agree with continuing SSI as inpatient, BG are stable. Medicine will sign off, thank you. Ryan London MD * Zaheer Bennett MD - 10/24/2023 1:15 AM CSTAssociated Order(s): IP CONSULT TO NEUROLOGY Images from the original note were not included. Neurology Inpatient Consult Note Visit date: 10/24/2023 Patient: Hira Evans Neurology Initial Consult Note Requesting Provider or Service: Hayder Vu Fo*, Ortho Reason for Consult: seizure like activity Subjective HISTORY OF PRESENT ILLNESS Hira Evans is a 73 y.o. male with a history of prostate cancer s/p RRP, HTN, severe LLE lumbar radiculopathy 2/2 left L4-L5 disc herniation who presents with seizure like activity. Today the patient had lumbar L4-5 spinal fusion. After the surgery, patient appeared tremulous waking up from anesthesia. Few hours later in the PACU, the patient was noted have seizure like activitydescribed as right gaze deviation with bilateral symmetric clonic movements followed by cardiac arrest, achieving ROSC after 2 minutes of CPR. On hCT couple of hours following the arrest, the patienthad small left frontal pole hypodensity and subtle loss of alvarado-white differentiation. PAST MEDICAL & SURGICAL HISTORY Past Medical History: Diagnosis Date Allergic rhinitis [...] ARTHROPLASTY Right 09/30/2019 VASECTOMY 30 years ago FAMILY HX: Family History Problem Relation Age of Onset Heart disease Mother Lung disease Mother Alcohol abuse Father Cancer Father Heart disease Other Family history of cardiac disorder - (Added by TW Conv) Cancer Other Family history of malignant neoplasm - (Added by TW Conv) Anesthesia problems Neg Hx SOCIAL HX: Social History Tobacco Use Smoking status: Former Packs/day: 1.00 Years: 8.00 Additional pack years: 0.00 Total pack years: 8.00 Types: Cigarettes Start date: 11/05/1968 Quit date: 11/05/1979 Years since quittin.9 Passive exposure: Past Smokeless tobacco: Never Substance [...] 2 Frequency of Binge Drinking: Never Social History Social History Narrative Not on file OUTPATIENT MEDICATIONS HOME MEDICATIONS : acyclovir (ZOVIRAX) 400 mg tablet cephalexin (KEFLEX) 500 mg capsule cetirizine (ZyrTEC) 10 mg tablet cholecalciferol (VITAMIN D-3) 5,000 unit capsule coenzyme Q10 100 mg capsule DILT-XR 240 mg 24 hr capsule fish,bora,flax oils-om3,6,9no1 400-400-400 mg capsule irbesartan (AVAPRO) 300 mg tablet Mounjaro 10 mg/0.5 mL pen injector mupirocin (BACTROBAN) 2 % ointment naproxen sodium 220 mg capsule omeprazole (PriLOSEC) 20 mg capsule INPATIENT MEDICATIONS Scheduled Medications: Scheduled Medications Medication Dose Route Frequency acetaminophen (TYLENOL) tablet 1,000 mg 1,000 mg oral Q6H CAMMY baclofen (LIORESAL) tablet 5 mg 5 mg oral Q8H CAMMY bisacodyL (DULCOLAX) suppository 10 mg 10 mg rectal Daily ceFAZolin (ANCEF) 2,000 mg/20 mL in sterile water (premix) 2,000 mg 2,000 mg intravenous Q8H CAMMY [Held by Provider] dilTIAZem XR (CARDIZEM CD,DILACOR XR) 24 hour capsule 240 mg 240 mg oral BID [Held by Provider] gabapentin (NEURONTIN) capsule 300 mg 300 mg oral Q8H CAMMY insulin lispro (HumaLOG, ADMELOG) 100 unit/mL injection 1-3 Units 1-3 Units subcutaneous Q4H CAMMY LORazepam (ATIVAN) 2 mg/mL injection - ADS Override Pull multivit ttkhlcni-ipjs-KT-calcium (THERA-M) tablet 1 tablet 1 tablet oral Daily pantoprazole DR (PROTONIX) extended release tablet 40 mg 40 mg oral Daily senna-docusate (PERICOLACE) 8.6-50 mg per tablet 2 tablet 2 tablet oral BID sodium chloride 0.9% flush 0.5-20 mL 0.5-20 mL intra-catheter Q8H CAMMY sodium chloride 0.9% flush 0.5-20 mL 0.5-20 mL intra-catheter Q8H CAMMY succinylcholine (ANECTINE) 20 mg/mL injection - ADS Override Pull [Held by Provider] tamsulosin (FLOMAX) extended release capsule 0.8 mg 0.8 mg oral Daily with dinner vancomycin 1500 mg/515 mL in sodium chloride 0.9% (premix) 1,500 mg 1,500 mg intravenous Q12H vancomycin 1500 mg/515 mL in sodium chloride 0.9% (premix) 1,500 mg 1,500 mg intravenous Once Continuous Medications: Current Facility-Administered Medications Medication Dose Route Frequency Last Admin dextrose 5% and Lactated Ringer's 25 mL/hr intravenous Continuous 25 mL/hr at 10/24/23 0014 [Held by Provider] dextrose 5% and sodium chloride 0.9% 75 mL/hr intravenous Continuous heparin 0-33 Units/kg/hr intravenous Titrated 11.1 Units/kg/hr at 10/24/23 0050 [Held by Provider] HYDROmorphone intravenous Continuous Lactated Ringer's norepinephrine 0-0.25 mcg/kg/min intravenous Titrated 0.06 mcg/kg/min at 10/24/23 0002 sodium chloride 0.9% PRN Medications: bisacodyl EC, 10 mg sodium chloride 0.9%, 30 mL sodium chloride 0.9%, 30 mL sodium chloride 0.9%, 30 mL dextrose, 15 g OR dextrose, 250 mL glucagon, 1 mg HYDROmorphone, 0.2 mg Lactated Ringer's, LORazepam, LORazepam, 0.5 mg magnesium hydroxide, 30 mL naloxone, 0.04-0.4 mg ondansetron, 4 mg [Held by Provider] oxyCODONE, 5 mg sodium chloride 0.9%, sodium chloride 0.9%, 0.5-20 mL sodium chloride 0.9%, 0.5-20 mL sodium chloride 0.9%, 0.5-20 mL succinylcholine, REVIEW OF SYSTEMS A complete review of symptoms was performed including constitutional symptoms, cardiovascular, respiratory, gastrointestinal, genitourinary, musculoskeletal, neurological, psychiatric, endocrine, immunologic, integumentary, hematological, eyes, ears, nose, mouth and throat. All symptoms negative except as per HPI. Objective PHYSICAL EXAM Vitals: 24 hr Min/Max: Temp Min: 36.7 ??C (98.1 ??F) Max: 36.9 ??C (98.4 ??F) Pulse Min: 0 Max: 108 BP Min: 95/54 Max: 153/77 Resp Min: 14 Max: 23 SpO2 Min: 82 % Max: 100 % Most Recent: Vitals: 10/23/23 2300 BP: Pulse: 102 Resp: 22 Temp: SpO2: 98% Height: 172.7 cm (5' 8 ) Weight: 88.6 kg (195 lb 5.2 oz) BMI (Calculated): 29.7 GENERAL EXAMINATION CONSTITUTIONAL: Mr. Evans is in no acute distress, laying down comfortably in bed HENT: Normocephalic, atraumatic, mucous membranes moist EYES: Anicteric sclera PULM: No increased work of breathing CV/EXT: Extremities are warm and well perfused; no visible edema SKIN: Dry, no suspicious rashes or lesions noted PSYCH: Calm and cooperative, eye contact appropriate for medical condition NEUROLOGIC EXAM: Mental Status: Mr. Evans arouses easily to voice and oriented to person, time. Slightly reduced concentration Language: The patient has fluent speech and follows commands. Naming and repetition intact. Cranial Nerves II-XII: PERRL. Extraocular movements are full and without nystagmus. Face is symmetric, hearing is intact to conversation. There is no dysarthria. Motor: All limbs are at least anti gravity Reflexes: deferred Sensation: Intact to light touch throughout bilateral upper and lower extremities. Coordination: purposeful Ambulation: deferred Lab/Radiology/Diagnostic Review: Laboratory Data Recent Labs Lab Units 10/24/23 0020 10/23/23 2303 10/23/239 10/23/23220610/23/23 2152 WBC K/cumm 22.9* 26.7* -- -- 23.8* HEMOGLOBIN, POC g/dL -- -- 9.2* < > -- HEMOGLOBIN g/dL 9.0* 9.0* -- -- 9.8* HEMATOCRIT % 25.4* 27.3* -- -- 32.0* HEMATOCRIT POC % -- -- 28.0* < > -- PLATELETS K/cumm 366 418* -- -- 458* < > = values in this interval not displayed. Recent Labs Lab Units 10/24/23 0020 10/23/23 2302 10/23/23223810/23/23220610/23/23215110/23/23214910/22/23 213 SODIUM mmol/L -- 137 -- -- 143 -- 134* POTASSIUM PLASMA mmol/L -- 4.1 -- -- 3.8 -- 4.6 CHLORIDE mmol/L -- 102 -- -- 102 -- 99 CO2 mmol/L -- 23 -- -- 20* -- 30 BUN SERUM mg/dL -- 12 -- -- 12 -- 12 CREATININE mg/dL -- 1.07 -- -- 1.06 -- 1.17 GLUCOSE mg/dL -- 245* -- -- 208* -- 121 POC GLUCOSE MONITOR mg/dL 252* -- 247* < > -- < > -- CALCIUM mg/dL -- 8.3* -- -- 8.9 -- 8.8 < > = values in this interval not displayed. Recent Labs Lab Units 10/23/232301 ALK PHOS Units/L 91 BILIRUBIN TOTAL mg/dL 0.6 TOTAL PROTEIN g/dL 5.9* ALT Units/L 88* AST Units/L 83* No results found for: HGBA1C , No results found for: LDLCALC Diagnostics: CT Head WO Contrast Result Date: 10/24/2023 Subtle white matter hypoattenuation with loss of alvarado-white differentiation the left frontal pole. If there is clinical concern for stroke, MRI of brain can be performed for further evaluation. The Critical results were discussed with Dr. Reyes by Dr. Martinez on 10/24/2023 at 12:29 AM Dictated by: Eric Martinez M.D. CT Chest PE (CTA) Abdomen Pelvis W Contrast Result Date: 10/24/2023 1. Acute pulmonary emboli involving the distal right and left main pulmonary arteries extending into all bilateral lobar and multiple bilateral segmental pulmonary arteries. No CT evidence of right heart strain. 2. Interval removal of the left percutaneous nephrostomy tube and placement of left double-J ureteral stent. There is a stable left renal subcapsular hematoma and a 10 mm crescentic density along the ureteral stent, which likely represent residual calculus. 3. New right 2nd through 6th and left 2nd through 7th rib fractures, likely secondary to cardiopulmonary resuscitation. The Critical results were discussed with Dr. Mahan by Dr. Zhu on 10/24/2023 at 00:11 Dictated by: Sudhakar Zhu MD, PHD XR Chest 1 View Result Date: 10/22/2023 Comparison is made to CT chest abdomen pelvis 10/12/2023. The left hemidiaphragm is mildly elevated. Indeterminant linear density projects over the left supraclavicular region and may be external to the patient. The lungs are clear. There is no pleural effusion or pneumothorax. The heart size is normal. Tortuous aorta. Dictated by: Alice Rios MD, PhD. The radiology attending physician has personally reviewed this study, and had reviewed and/or edited this written report and agrees with it. Electronically signed by: Maritza Miranda M.D. Dexa Axial Skeleton Bone Density 1 or 2 Site Result Date: 10/18/2023 1. The bone mineral density of the lumbar spine is normal. 2. The bone mineral density of the left femoral neck is normal. 3. The bone mineral density of the left total hip is normal. 4. Overall, theabove findings are normal by WHO criteria. 5. Calculation of fracture risk using the FRAX model is not appropriate in certain settings. It was not performed in this patient because the patient met the following condition(s): normal bone density. General comments regarding interpretation of bone density measurements: A) In children, premenopausal woman and males under age 50 not at increased risk for fractures only Z-scores, not T-scores are used to indicate risk. A Z-score above -2.0 is definedas within the expected range for age and Z-score at or less than -2.0 is below the expected range for age . A Z-score below the expected range for age in a patient with recent fractures and/or chronic corticosteroid treatment is consistent with a diagnosis of osteoporosis. B) In post menopausal women and males over 50, comparison of the measured bone mineral density with the average value in young normal subjects (the T-score ) has been found to be useful in assessing fracture risk. Fracture risk approximately doubles for each 1.0 standard deviation (SD) in individual's hip or spine bone mineral density is below the average value of young normal subjects. The World Health Organization (WHO) has defined T-scores of -1.0 to -2.5 as diagnostic of low bone mass (OSTEOPENIA), and T-scores of -2.5 or lower to be diagnostic of OSTEOPOROSIS, based on the site of lowest bone density. Note that there will be a change in reporting format and reference databases as patients move from the younger population (group A) to the older population (group B) The National Osteoporosis Foundation (www.nof.org) recommends adequate intake of calcium and vitamin D and regular weight-bearing exercise inall patients. They recommend pharmacologic treatment in postmenopausal women and men age 50 and older presenting with any of the followin) Osteoporosis, after appropriate evaluation to exclude sec ondary causes. 2) A hip or vertebral (clinical or radiographic) fracture, regardless of the bone density. 3) Low bone mass (Osteopenia) and one or more of: other prior fractures, secondary causes associated with high risk of fracture (such as glucocorticoid use or total immobilization), or computedhigh risk of fracture (10-yr probability of hip fracture >= 3% or a 10-yr probability of any major osteoporosis-related fracture >= 20% based on the [place]adapted WHO algorithm), available at http://www.shef.ac.uk/FRAX). Dictated by: Gypsy Pelletier M.D. The radiology attending physician has personally reviewed this study, and had reviewed and/or edited this written report and agrees with it. Electronically signed by: Nikki Bella MD, Ph.D CT Urogram WO 3D Result Date: 10/16/2023 1. Postprocedural changes of percutaneous nephrostomy tube placement with perinephric hematoma, which is similar to the prior ultrasound. Blood products extend along the left retroperitoneal fascial planes. 2. The obstructing left mid ureteral stone has displaced superiorly within the upper ureter.A stone previously identified in the left inferior renal pole has displaced into the proximal left ureter. A small amount of blood clot is present in the proximal left ureter. 3. Interval improvementin left hydronephrosis with persistent transition point at the left mid-ureter, with associated focal wall thickening. This may represent inflammatory thickening/spasm related to prior impacted stone versus pre-existing stricture predisposing the patient to stone formation. Dictated by: Dmitry Thompson MD The radiology attending physician has personally reviewed this study, and had reviewed and/oredited this written report and agrees with it. Electronically signed by: Eric Irene M.D. IR Percutaneous Nephrostomy Left Result Date: 10/14/2023 Successful left percutaneous nephrostomy. Impacted stone in the mid left ureter partially obstructing the ureter. PLAN: Flush the catheter 10 ml of NS every 8 hours to prevent clogging the tube givenhemorrhagic output. Patient needs to have followup after 6-8 weeks for catheter exchange or internalization or possible removal if no definitive surgical plan is made in the interim. Dictated by: Ana Alfaro M.D. The radiology attending physician has personally reviewed this study, and had reviewed and/or edited this written report and agrees with it. Electronically signed by: Kendrick Hughes M.D. US Kidney Complete Result Date: 10/14/2023 1. No hydronephrosis. Given patient had obstructive left ureteral stone with severe hydronephrosis and no interval stone extraction or collecting system decompression at time of this ultrasound, resolved hydronephrosis may be secondary to forniceal rupture. 2. Crescentic left perinephric collection, 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. Consider short term follow-up imaging preferably with CT urogram in 48-72 hours. Electronically signed by: Robert Yeboah M.D. FL Fluoroscopy < 1 Hour Result Date: 10/14/2023 Unsuccessful attempt at left nephrostomy placement in this patient with a nondilated system. Dictated by: Ana Alfaro M.D. The radiology attending physician has personally reviewed this study, and had reviewed and/or edited this written report and agrees with it. Electronically signed by: Rg Mar M.D. MRI Spine Total Complete W WO Contrast Result Date: 10/13/2023 1. Redemonstrated degenerative disc disease of the lumbar spine notable for a left lateral disc bulge and superimposed protrusion at L4-L5 resulting in moderate right and severe left lateral recess stenosis, similar to prior. Additionally there is continued severe neuroforaminal stenosis on the left at L4-L5 and on the right at L5-S1. There is no high-grade spinal canal or neuroforaminal stenosisinvolving the cervical and thoracic spine. 2. There is flattening of the dorsal cord at T4-T5 whichmay reflect an arachnoid cyst or arachnoid web with associated short segment cord signal abnormality. This can be further characterized with nonemergent CT myelogram. 3. Partially imaged moderate left hydronephrosis, seen to greater advantage on recent CT of the abdomen and pelvis. Dictated by: Aston Vazquez MD The radiology attending physician has personally reviewed this study, and had reviewedand/or edited this written report and agrees with it. Electronically signed by: Kym Buckley M.D. CT Chest Abdomen Pelvis W Contrast Result Date: 10/13/2023 1. Obstructing renal calculus in unchanged position compared to CT 10/11/2023, measuring 6 mm in size. 2. Unchanged retroperitoneal gas on the left side, likely postprocedural. 3. Inflammatory changes in the left perinephric space and retroperitoneum, which can be seen in setting of obstructive uropathy. 4. Gas in the urinary bladder may represent changes due to instrumentation however gas forming bacteria in the setting of obstructive uropathy/obstructive renal stone should also be considered.Dictated by: Govind Rodriguez MD The radiology attending physician has personally reviewed this study, and had reviewed and/or edited this written report and agrees with it. Electronically signed by: Mich Cabrera M.D. CT Lumbar Spine WO Contrast Result Date: 10/11/2023 1. Moderate degenerative changes of the lumbar spine, worst at L4-L5, as described in detail above.2. New dilatation of the left renal pelvis and ureter, to the level of a focus of calcification, likely representing a ureteral stone. Dictated by: Tyrone Londono M.D. The radiology attending physician has personally reviewed this study, and had reviewed and/or edited this written report and agrees with it. Electronically signed by: Zac Mcgarry M.D. MRI Lumbar Spine WWO Contrast Result Date: 10/01/2023 Moderate degenerative changes of the lumbar spine, worse at L4-L5, as described in detail above. A left lateral disc extrusion is present at L4-L5. Prominent contrast enhancement is also identified within the left neural foramen which is likely secondary to inflammation. Severe left lateral recess stenosis is also visible. Given the findings at L4-L5, the exiting left L4 and traversing left L5 nerve roots are likely affected. Electronically signed by: Zac Mcgarry M.D. Assessment/Plan ASSESSMENT AND PLAN Mr. Evans is a 73 y.o. male with a history of prostate cancer s/p RRP, HTN, severe LLE lumbar radiculopathy 2/2 left L4-L5 disc herniation who presents with seizure like activity. The patient had seizure like activity immediately prior to having an cardiac arrest. This activity is favored to represent abnormal movement trish to movements seen in syncopal episodes due to hypoperfusion of the brain. However, given that there is a structural lesion in the head CT with potentially consistent seizure semiology (right gaze deviation), the patient's episode may represent a seizure. If the patient had a seizure, it is provoked in the setting of acute infection and hypoperfusion in the setting of impending arrest. It is unlikely the patient will require anti-seizure medication intermediate accountant, but it is reasonable to continue AEDs for now. The hypodensity on the CT is unlikely a sequelae of the cardiac arrest given its location and timing relative to the cardiac event. Given that the lesion may represent a prior stroke, he would benefit from a brain MRI to confirm past stroke. If he had a stroke, he would benefit from a stroke work up. Recommendations: # Concerns for Seizure We will follow up the results of the routine EEG Brain MRI epilepsy protocol W and WO contrast (please specify in comments to obtain DWI and ADC) Continue Keppra 1000 mg BID for now. We will decide whether he needs this medication intermediate accountant depending on the workup. Thank you for this consult. Neurology Consult Call Back: [phone] (senior phone). Please do nothesitate to contact us with any questions or concerns, and specify that this consult was staffed with consult team A. Zaheer Bennett MD, PHD Neurology Resident, PGY-2 10/24/2023 1:15 AM Cosigned by Steve Funk MD PhD at 10/24/2023 10:51 PM HOB MILL OPERATOR MILL OPERATOR MILL OPERATOR MILL OPERATOR MILL OPERATOR Associated attestation - Steve Funk MD PhD - 10/24/2023 10:51 PM HOB MILL OPERATOR I have seen and examined the patient on 10/24/23. I agree with the findings and plan of care as documented in the resident's/fellow's note. Agree with plan to increase keppra. It's unclear if seizurecaused arrest or vice versa. However, if the seizure caused the arrest, it is safer to leave him johann AED for now (and perhaps as an outpatient), will f/u MRI * Fredrick Mcneil MD - 10/12/2023 10:45 PM CSTAssociated Order(s): IP CONSULT TO UROLOGY Images from the original note were not included. Urology Consult Note Subjective Chief Complaint: C/f left obstructing ureteral stone with UTI Requesting provider: Dr. Hargrove History of Present Illness: Hira Evans is a 73 y.o. male w/ a PMH of prostate cancer s/p RALPand severe LLE lumbar radiculopathy 2/2 disc herniation with a planned spinal surgery on 10/16. He presented earlier this morning to a preoperative evaluation for his upcoming surgery and due to concerning symptoms, he was transferred to [facility] for further workup. Patient's reports that over the last few days, he has had increasing weakness in his legs and fatigue. She reports that he has had chills and has been drinking a lot of water. He reports more than one month of foul-smelling urine. CT scan was done showing obstructing left ureteral stone with resulting left hydronephrosis. UA appears infected, confirmed by culture growing E coli. Patient does not report fevers. He has not noticed dysuria, urgency, or frequency. No suprapubic orflank pain. No gross hematuria. UA 3+ LE, >50 WBCs, 3+ bacteria, UCx growing E coli Cr 0.99 WBC 8.1(15) Hgb 13.7 The patient's past medical, surgical, were reviewed and noncontributory to this illness/condition except as noted below: The patient's past medical history is notable for: Past Medical History: Diagnosis Date Allergic rhinitis Arthritis OA Cancer (CMS/HCC) (HCC) prostate and melonomia Gastric reflux GERD (gastroesophageal reflux disease) History of melanoma Hypertension Kidney stone Personal history of prostate cancer Pneumonia Seasonal allergies The patient's past surgical history is notable for: Past Surgical History: Procedure Laterality Date FL UPPER GI AIR CONTRAST W KUB Left 09/21/2023 JOINT REPLACEMENT Right 2013 right knee replacement MELANOMA RESECTION Right 2005 right flank PROSTATECTOMY 2009 REPLACEMENT TOTAL KNEE Left 10/17/2021 REVISION TOTAL KNEE ARTHROPLASTY Right 09/30/2019 VASECTOMY 30 years ago Review of systems negative other than what is stated in the HPI. Objective In/Outs: No intake/output data recorded. I/O this shift: In: 20 [IV Piggyback:20] Out: - Physical Exam: Vitals: 10/12/23 1925 10/12/23 1930 10/12/23199910/12/232029 BP: 136/81 143/81 131/83 143/83 Pulse: 88 79 78 69 Resp: 26 18 17 22 Temp: SpO2: 100% 98% 98% 98% Weight: Height: General: In no acute distress Pulmonary: Non-labored breathing Cardiovascular: Well perfused Abdomen: soft, non tender, Non distended : voiding cloudy yellow urine spontaneously Neuro: Alert and oriented Psych: Appropriate and cooperative Labs/Imaging: Chem/LFT Lab History Latest Ref Rng & Units 10/11/2023 12:18 10/12/2023 19:50 Labs-Chem/LFT Sodium 135 - 145 mmol/L 132 133 Creatinine 0.80 - 1.30 mg/dL 1.08 0.99 Bilirubin, total 0.1 - 1.2 mg/dL 1.1 AST 10 - 50 Units/L 24 ALT 7 - 55 Units/L 20 Alk phos 40 - 130 Units/L 120 CrCl- Actual Body Weight (Cockcroft-Gault) 75.7 77.9 Hematology Lab History Latest Ref Rng & Units 10/11/2023 12:18 10/12/2023 19:50 Labs - Hematology WBC 3.8 - 9.9 K/cumm 15.2 8.1 Total Hb, POC 13.0 - 17.5 g/dL 14.9 13.7 Hct 38.9 - 50.3 % 42.6 38.5 Plt 150 - 400 K/cumm 148 155 Neutrophil abs 1.5 - 6.5 K/cumm 12.7 6.4 Lymphocytes, abs 0.8 - 3.3 K/cumm 0.8 0.7 The following images were personally reviewed by me. CT Chest Abdomen Pelvis W Contrast Narrative: EXAMINATION: CT CHEST ABDOMEN PELVIS W CONTRAST HISTORY: 73-year-old with history of robotic prostatectomy who presents with progressive history of cloudy urine. TECHNIQUE: Transaxial computed tomographic images of the chest, abdomen and pelvis were obtained with intravenous contrast according to the standard protocol after the uneventful administration of 69 mL Opti-Ray 350 intravenous contrast. COMPARISON: Lumbar spine MR 10/01/2023 FINDINGS: Symmetric enhancement imaged thyroid. No supraclavicular, axillary lymphadenopathy. The heart size is normal. No pericardial effusion. Coronary artery calcifications are noted. The thoracic aorta and main pulmonary artery are normal in size. Mild dependent atelectasis. No pleural effusion. No pneumothorax. No suspicious pulmonary nodule. Numerous hypoattenuating hepatic lesions are noted, favored represent cysts. There is hypertrophy of the left hemiliver. The gallbladder is normal in size. No intra-extra hepatic biliary ductal dilatation. The pancreas is normal. The spleen is normal. The adrenal glands are normal. The right kidney is normal. There is no hydronephrosis. Punctate radiodensity seen in the superior pole collecting system likely represents a nodular to calculus. Additional hyperdensity seen in the midpole is also likely small nonobstructing calculus. The distal ureter is normal in caliber. There is mild to moderate left-sided hydronephrosis, with large nonobstructing calculus in the inferior collecting system, with engorgement of the renal pelvis, consistent with hydroureteronephrosis. Significant gas can be seen surrounding the ureter, which may represent postprocedural gas which is unchanged compared to CT 10/11/2023. Additionally, there is mild stranding of the distal ureter at the level of the external iliac vessels, which is nonspecific but may represent a component of pyelitis. No significant inflammatory changes are seen in the distended left renal collecting system and proximal ureter. Obstructive calculus is seen in the mid ureter, series 3 image [id number] measuring 6 mm in greatest dimension. The urinary bladder has a small locule of gas, likely due to recent instrumentation. Faint stranding seen around the urinary bladder may represent a component of cystitis. Postsurgical changes are seen in the prostatectomy bed. No significant abdominal pelvic lymphadenopathy. No suspicious osseous lesion with redemonstration of degenerative changes in the lumbar spine, better seen on MR 10/01/2023. Impression: 1. Obstructing renal calculus in unchanged position compared to CT 10/11/2023, measuring 6 mm in size. 2. Unchanged retroperitoneal gas on the left side, likely postprocedural. 3. Inflammatory changes in the left inferior retroperitoneum, which represent a component of pyelitis. Stranding seen around the urinary bladder may represent cystitis. Recommend correlation with urinalysis. Dictated by: Govind Rodriguez MD Assessment Hira Evans is a 73 y.o. male w/ a PMH of prostate cancer s/p RALPand severe LLE lumbar radiculopathy 2/2 disc herniation with a planned spinal surgery on 10/16, presented today for preoperative workup and was sent to ED with c/f infectious process. Patient reports 1 month of foul smellingurine, chills, severe thirst, and increased fatigue and weakness in his legs. WBC downtrending to 8from 15. UCx growing E coli. No fevers. CT scan notable for left obstructing ureteral stone with left hydronephrosis. Plan - Keep NPO - To OR for left ureteral stent placement - Recommend admission to medicine postoperatively for management of UTI - Urology will continue to follow Thank you for allowing us to participate in the care of this patient. For any questions or concerns, please page Urology through the punch operator. Vero Tolentino MD 10/12/2023 MILL OPERATOR MILL OPERATOR MILL OPERATOR * Hayden Youngblood MD - 10/12/2023 7:22 PM CSTAssociated Order(s): IP CONSULT TO ORTHO SPINE Orthopaedic Surgery Spine Service Consult October 12, 2023 7:22 PM Reason for Consult: UTI in preop testing for surgery next week Requesting Provider: ED This patient was evaluated within 30 minutes of consultation. Clohisy/Logan Dx: L4-L5 radiculopathy, UTI Relevant PMHx: HTN, prostate CA s/p prostatectomy (~2010), GERD, obesity, melanoma (2007), CKD Plan: recommend medicine admission for infxn workup, PENDING OR 10/16 Procedure(s): , HPI: 73 y.o. male with UTI on preop testing for OR next week w/ Clohisy. He is currently scheduled to have an L4-5 posterior spinal fusion with TLIF next week. He went to preop testing and was found to have UTI. He has a cancer history as well. His weakness is worsening and he is trouble ambulatingat this time. He continues to have intermittent radicular pain in the left lower extremity which was present during evaluation. Exam: 5/5 strength in BUE and RLE, +Milner RUE, equivocal Milner LUE,no clonus BLE, LLE: 4/5 IP, 2/5 Q, 4/5 H, 4/5 TA and EHL, 5/5 GSC, SILT throughout. OI: UTI. Consulting Services: Medicine, ortho spine, emergency medicine. PMHx: As above. Soc Hx: non smoker, +social EtOH, THC edibles , requires walker and is having increasing difficulty with ambulation , lives w/spouse Pain is located in lower back and radiates down the left lower extremity. Hand dominance: right Baseline Ambulatory Status: walker required recently (no longer able to hand cane alone) Past Medical History: Diagnosis Date Allergic rhinitis Arthritis OA Cancer (CMS/HCC) (HCC) prostate and melonomia Gastric reflux GERD (gastroesophageal reflux disease) History of melanoma Hypertension Kidney stone Personal history of prostate cancer Pneumonia Seasonal allergies Past Surgical History: Procedure Laterality Date FL UPPER GI AIR CONTRAST W KUB Left 09/21/2023 JOINT REPLACEMENT Right 2013 right knee replacement MELANOMA RESECTION Right 2006 right flank PROSTATECTOMY 2009 REPLACEMENT TOTAL KNEE Left 10/17/2021 [...] 1 tablet (10 mg total) by mouth tugger operator before breakfast Fidelia Perdue MD cholecalciferol (VITAMIN D-3) 5,000 unit capsule Take 1 capsule (5,000 Units total) by mouth every morning Fidelia Perdue MD coenzyme Q10 100 mg capsule Take 1 capsule (100 mg total) by mouth tugger operator before breakfast Fidelia Perdue MD DILT-XR 240 mg 24 hr capsule Take 1 capsule (240 mg total) by mouth 2 (two) times a day 05/12/19 Fidelia Perdue MD fish,bora,flax oils-om3,6,9no1 400-400-400 mg capsule Take 1 tablet by mouth tugger operator before breakfast Fidelia Perdue MD irbesartan (AVAPRO) 300 mg tablet Take 1 tablet (300 mg total) by mouth every morning 08/10/21 Fidelia Perdue MD Mounjaro 10 mg/0.5 mL pen injector Inject 10 mg under the skin once a week Sunday04/05/23 Fidelia Perdue MD mupirocin (BACTROBAN) 2 % ointment Apply a small amount to the inside of each nostril, using a clean Q-tip for each nostril, twice a day for 5 days prior to surgery. 10/11/23 Hayder Vu MD naproxen sodium 220 mg capsule Take 1 tablet by mouth 2 (two) times a day as needed (Pain) Fidelia Perdue MD omeprazole (PriLOSEC) 20 mg capsule Take 1 capsule (20 mg total) by mouth every morning Fidelia Perdue MD No Known Allergies Social History Tobacco Use Smoking status: Former Packs/day: 1.00 Years: 8.00 Additional pack years: 0.00 Total pack years: 8.00 Types: Cigarettes Start date: 11/05/1968 Quit date: 11/05/1979 Years since quittin.9 Passive exposure: Past Smokeless tobacco: Never Substance and Sexual Activity Drug use: Yes Frequency: 7.0 times per week Types: Medical marijuana Comment: MJ = edibles daily for pain; Alcohol = 2 glasses of wine per evening Sexual activity: Yes Partners: Female control/protection: Vasectomy Alcohol Use: Not At Risk (10/11/2023) AUDIT-C Frequency of Alcohol Consumption: 4 or [...] by TW Conv) Anesthesia problems Neg Hx Objective Vitals: 24hr Min/Max: Temp Min: 36.5 ??C (97.7 ??F) Max: 36.5 ??C (97.7 ??F) Pulse Min: 83 Max: 83 BP Min: 123/77 Max: 123/77 Resp Min: 16 Max: 16 SpO2 Min: 96 % Max: 96 % Most Recent: Vitals: 10/12/23 1624 BP: 123/77 Pulse: 83 Resp: 16 Temp: 36.5 ??C (97.7 ??F) SpO2: 96% Weight: 81.6 kg (180 lb) Height: 172.7 cm (5' 8 ) Physical Exam: Gen: Well-developed, well-nourished, in no acute distress. A&O: x3 Normal respirations, no dyspnea with speaking Spine: General: L-spine tenderness. Healed scar in mid back from unknown source. Scar over left flank from previous resection of the melanoma. No visible deformity on inspection. No appreciable muscular atrophy.Normal muscular tone. Motor: Muscle Strength Left Right Deltoid 5/5 5/5 Biceps 5/5 5/5 Triceps 5/5 5/5 Wrist extension 5/5 5/5 Wrist flexion 5/5 5/5 Breast Puller 5/5 5/5 Interosseous of hand 5/5 5/5 Iliopsoas 4/5 5/5 Quadriceps 2/5 5/5 Hamstrings 4/5 5/5 Tibialis anterior 4-/5 5/5 Extensor hallicus longus 4/5 5/5 Gastrocsoleus complex 5/5 5/5 Sensation Left upper extremity: sensation intact to [...] (T7), Umbilicus (T10), pubis (T12) Reflexes: Bilateral lower extremity deep tendon reflexes symmetric without hyperreflexia Rectal exam: +perianal sensation, +resting tone, and +volitional rectal tone Gait: Deferred Long-tract signs: Positive Milner's in right upper extremity, equivocal Tyrese's in left upper extremity No clonus in bilateral lower extremities Nonreactive Babinski in bilateral lower extremities Vascular: Bilateral Upper Extremity: 2+ radial pulse, fingers WWP Bilateral Lower Extremity 2+ pedal pulses, toes WWP with BCR Lab/Radiology/Diagnostic Review: Laboratory review: No results found for this or any previous visit (from the past 24 hour(s)). Radiology Review: I have reviewed the imaging with the following findings: Degenerative changes of the lumbar spine without acute osseous injury, anterior osteophytes Clinical Images: None Assessment: 73 y.o. male p/w UTI and preoperative testing in preparation for instrumented single-level fusion and TLIF next week. Ortho Spine recommends admission for IV antibiotics for treatment of UTI and workup for obstructive causes including nephrolithiasis or recurrence of malignancy. Recommend SPEP/UPEP/ESR, CRP, blood cultures, CBC, CMP, MRI with and without contrast of total spine, chest abdomen andpelvis CT scan to rule out malignancy prior to surgery next week. Plan: Recommend for Admit to medicine, please don't send up before speaking with ortho Further Workup: Lab tests and imaging as listed above Further Imaging: MRI with and without contrast total spine, CT chest abdomen pelvis Precautions: No spine precautions. Immobilization: None Neuro Checks: q4h Activity: Activity as tolerated, PT/OT/OOB prior to surgery Diet: Diet per primary DVT ppx: SCDs and please hold chemical DVT ppx--please hold all chemical DVT prophylaxis in preparation for spine operation next week Pain control per ED Abx: Recommend empiric antibiotics and further tailoring of treatment following urinary cultures Please call ortho spine if patient develops any concerning changes to their neurologic exam such asnew weakness or loss of bowel/bladder function. Will discuss with the ortho spine team prior to further recommendations. -- -- -- Hayden Youngblood M.D., Ph.D. Department of Orthopaedic Surgery, PGY-2 [facility] Please use [facility] to page/call the appropriate Orthopaedic Surgery Team/Resident if questions or concerns. Normal business hours: If you know the resident's name on the appropriate orthopaedic surgery team,please use the Directory Search at [facility] to page resident directly. If questions arise and the appropriate resident can't be reached or you are calling overnight, please contact [phone] ([facility] 7:30 PM - 6:30 AM - Floor Resident) or [phone] (24 hours/day - Consult Resident) Cosigned by Hayder Vu MD at 10/14/2023 10:41 PM HOB MILL OPERATOR MILL OPERATOR MILL OPERATOR documented in this encounter Nursing Notes * Sherice Wilcox RN - 10/24/2023 1:21 AM CST Fredrick MACKEY [place] [id number] in anticipation of admission to our unit.Post op, patient went to ICU. AN brought bag of patient belongings to current room 4401. MILL OPERATOR * Nolvia Gonzales RN - 10/23/2023 10:20 PM CST Patient arrived to PACU and immediately started having a tonic clonic seizure. Patient then lost pulse and CPR initiated. See code narrator for further information. ART line placed. Patient started on pressors and having spontaneous breaths. Patient not intubated at this time per anesthesia as he is breathing on his on. Patient is non-responsive but protecting his airway. Anesthesia at bedside tobring patient to ICU. MILL OPERATOR * Fredrick Sheffield RN - 10/23/2023 7:04 PM CST Patient belongings (blanket, jacket, shoes, mirror, shirt, pajama pants) brought to unit 32293, where patient is transferring. Entire room searched for belongings, [place] [id number]. MILL OPERATOR * Frieda Cai RN - 10/18/2023 6:14 PM CST Patient went to surgery today and got a stent place, the catheter was changed during surgery. No drainage or leakage around the harris cath noted. MILL OPERATOR * Ad Parikh RN - 10/16/2023 3:01 PM CST Assumed care for patient at 1500. This Rn agrees with previous RN's assessment. Patient A&ox4 and resting in bed. Will continue to monitor. MILL OPERATOR * Adia Poole RN - 10/15/2023 7:44 PM CST I assumed care for this patient around 1500, when NARENDRA Schwartz left. Hira was alert and oriented x4. His vital signs were within normal limits. Dilaudid was given to manage his lower back pain. His 10 mL sterile saline nephrostomy tube flush was given. Upon my departure, Hira was denying needs, and inagreement with bedside shift report. MILL OPERATOR documented in this encounter ED Notes * Justice Vivas RN - 10/12/2023 6:25 PM CST Bed: ED1-14 Expected date: Expected time: Means of arrival: Car Comments: Justice Vivas RN 10/12/23 1825 MILL OPERATOR * Amol Hargrove MD - 10/12/2023 6:22 PM CST HPI Chief Complaint Patient presents with Urinary Problem Hira Evans is a 73 y.o. male with history of prostate cancer s/p RRP, HTN, severe LLE lumbar radiculopathy 2/2 left L4-L5 disc herniation; planned spinal surgery 10/16; presenting with UTI and progressive LLE weakness. He has been having foul-smelling and cloudy urine for the past 1-2 months. For the past week he hasbeen having intermittent chills and fever. The fevers have been < 101, and go away with Tylenol.He denies any dysuria, hematuria. He has a long history of incontinence, which has been stable. Patient has acute on chronic radiculopathy, with increasing weakness in his left quad over the past2 weeks, going from using a cane now to a walker and with significant difficulty moving at all. Patient's says that he has been confined to her recliner, and she does not feel safe transferring him. He underwent preoperative during testing for planned L4-L5 spinal fusion with Dr. Vu on 10/16. Lab work showed leukocytosis and bacteriuria, with urine growing E coli. Patient was [facility] ED at the instruction of Dr. Vu for UTI treatment and further evaluation for potential progression of malignant disease. Patient History: Patient Active Problem List Diagnosis Date Noted Hydronephrosis with urinary obstruction due to renal [...] replacement MELANOMA RESECTION Right 2006 right flank PROSTATECTOMY 2009 REPLACEMENT TOTAL KNEE Left 10/17/2021 [...] date: 11/05/1968 Quit date: 11/05/1979 Years since quittin.9 Passive exposure: Past Smokeless tobacco: Never Vaping [...] Review of Systems Review of Systems Constitutional: Positive for activity change, chills, fatigue and fever. HENT: Negative for congestion and rhinorrhea. Eyes: Negative for visual disturbance. Respiratory: Negative for cough and shortness of breath. Cardiovascular: Negative for chest pain and leg swelling. Gastrointestinal: Negative for abdominal pain, diarrhea, nausea and vomiting. Genitourinary: Positive for urgency. Negative for dysuria and hematuria. Skin: Negative for rash. Neurological: Positive for weakness. Negative for headaches. Psychiatric/Behavioral: Negative for agitation and confusion. Physical Exam ED Triage Vitals [10/12/23 1624] Temp Pulse Resp BP SpO2 36.5 ??C (97.7 ??F) 83 16 123/77 96 % Temp src Heart Rate Source Patient Position BP Location FiO2 (%) -- -- -- -- -- Height Height Method Weight Weight Method 1.727 m (5' 8 ) -- 81.6 kg (180 lb) -- Physical Exam Constitutional: Appearance: Normal appearance. HENT: Head: Normocephalic and atraumatic. Nose: Nose normal. Mouth/Throat: Mouth: Mucous membranes are moist. Pharynx: Oropharynx is clear. Eyes: Conjunctiva/sclera: Conjunctivae normal. Pupils: Pupils are equal, round, and reactive to light. Cardiovascular: Rate and Rhythm: Normal rate and regular rhythm. Pulses: Normal pulses. Heart sounds: Normal heart sounds. Pulmonary: Effort: Pulmonary effort is normal. Breath sounds: Normal breath sounds. Abdominal: General: There is no distension. Tenderness: There is abdominal tenderness (Very Mild tenderness over the right flank; no suprapubictenderness.). Musculoskeletal: General: Normal range of motion. Cervical back: Normal range of motion. Right lower leg: No edema. Left lower leg: No edema. Skin: General: Skin is warm and dry. Neurological: Mental Status: He is alert and oriented to person, place, and time. Motor: Weakness (3/5 knee extension on the left side.) present. Psychiatric: Mood and Affect: Mood normal. Behavior: Behavior normal. MDM Medical Decision Making Hira Evans is a 73 y.o. male with history of prostate cancer s/p RRP, HTN, severe LLE lumbar radiculopathy 2/2 left L4-L5 disc herniation; planned spinal surgery 10/16; presenting with UTI and progressive LLE weakness. For his UTI, UCx with E Coli and susceptibilities pending, but we will treat empirically with ceftriaxone 2g q24h. In terms of source, we will look for a ureteral stone with CT to determine if there is an uncontrolled source that can be removed. Also kim BCx, CMP, CBC. For his weakness, likely worsening of his L4-5 radiculopathy, we have ordered total Spine MRI w/ wocontrast to assess for progression of disease vs. New metastatic lesion to spine. We have also ordered CT-CAP with contrast to evaluate for any potential progression of malignancy. Amount and/or Complexity of Data Reviewed Labs: ordered. Radiology: ordered. Decision-making details documented in ED Course. Risk OTC drugs. Prescription drug management. Decision regarding hospitalization. Attending Summary of Care ED Course as of 10/12/23 7682 Time: 10/12 184 Comment: Attending physician assessment and plan: 73 yom PMH of prostate cancer, chronic urine incontinence, progressive low back pain with progressive pain and weakness in left quad, followed by orthopedic spine surgery, intent on lumbar fusion early next week, sent here due to pre-op work up showing UTI. Culture growing e coli - sensitives pending. Patient has had low grade fevers, worsening pain and leg weakness in past several days, reports more than one month of foul smelling urine, endorses mild suprapubic tenderness and mild left flank tenderness on exam. HR normal good cap refill on exam, no resp distress, lungs CTA. Patient sent here for treatment due to need for urgent spine surgery with hardware and evidence of infection. On review of orthopedics attending note - requesting medical admission for infections and malignancy work up. MRI L spine 10/01/2023: IMPRESSION: Moderate degenerative changes of the lumbar spine, worse at L4-L5, as described in detail above. A left lateral disc extrusion is present at L4-L5. Prominent contrast enhancement is also identified within the left neural foramen which islikely secondary to inflammation. Severe left lateral recess stenosis is also visible. Given the findings at L4-L5, the exiting left L4 and traversing left L5 nerve roots are likely affected. Reviewed CT T and L spine from yesterday: IMPRESSION: 1. Moderate degenerative changes of the lumbar spine, worst at L4-L5, as described in detail above. 2. New dilatation of the left renal pelvis and ureter, to the level of a focus of calcification, likely representing a ureteral stone. Plan: Sepsis work up - start IV ceftriaxone, check CBC, CMP, UA reflex, CT chest abd and pelvis, consider urology consult if evidence of stone present. Med admission. Will contact ortho spine serviceto make aware of admission given neuro deficits. By: Rafael Cowan MD Time: 10/12 1948 Comment: Discussed with Ortho spine surgery: agree with plan want to add blood cultures x 2 and MRIof C T and L spine today. Requesting Admission to medicine. Will get urology involved if evidence of ureteral stone on CT imaging today. By: Rafael Cowan MD Time: 10/12 2207 Value: CT Chest Abdomen Pelvis W Contrast Comment: 1. Obstructing renal calculus in unchanged position compared to CT 10/11/2023, measuring 6 mm in size. 2. Unchanged retroperitoneal gas on the left side, likely postprocedural. 3. Inflammatory changes in the left inferior retroperitoneum, which represent a component of pyelitis. Stranding seen around the urinarybladder may represent cystitis. Recommend correlation withurinalysis. By: Amol Hargrove MD Time: 10/12 2231 Comment: Consulted urology given obstructing renal calculus, and UTI. Concern for infected stone. By: Amol Hargrove MD Time: 10/12 2318 Comment: ATTENDING TRANSITION OF CARE I, Delvin Harrington MD, am taking signout from Camryn (Attending). I have reviewed all pertinent vital signs allergies, and history available in the chart. Summary: 73 y.o. male urology Pending: reccs from specialists Dispo: admit By: Delvin Harrington MD Ureteral colic Hydronephrosis with urinary obstruction due to renal calculus Pyelonephritis Left lumbar radiculopathy Left leg weakness Amol Hargrove MD Resident 10/12/232352 Cosigned by Rafael Cowan MD at 10/14/2023 12:05 AM HOB MILL OPERATOR MILL OPERATOR MILL OPERATOR Associated attestation - Rafael Cowan MD - 10/14/2023 12:05 AM HOB MILL OPERATOR I have seen and examined the patient on 10/12/2023. I reviewed the resident's note and agree with the findings and plan of care as documented in the resident's note with modifications as documented inmy note. * Mariola Bee RN - 10/12/2023 4:22 PM CST Was told he had a UTI when he came in for pre-op testing, was not prescribed abx. Was told to come to the ED to be admitted to get treated prior to spinal surgery on Sunday. Reports malodorous urine. MILL OPERATOR documented in this encounter Miscellaneous Notes * Provider Query - Hayder Vu MD - 10/30/2023 4:07 PM HOB MILL OPERATOR Greetings Dr. Vu Please clarify if sepsis was still suspected at time of discharge. ___Yes, remains a suspected/still to be ruled out diagnosis at time of discharge __X_ No, diagnosis ruled out at time of discharge ___ Clinically unable to rule out ___Other, specify below Additional Provider Response: N/A Clinical Indicators/Treatments: Patient was found to have a UTI, with left ureteral stone and hydronephrosis. Progress Note 10/13 listed Sepsis due to urinary tract infection with left ureteral stone and hydronephrosis. 10/15 progress note states . :...he has had this severe medical exacerbation with a UTI and possible sepsis requiring hospitalization with Urology and Interventional Radiology interventions... 10/12 consult states WBC downtreanding to 8 from 15 Pulse 10/13 greater then 90 Resp 10/12 > 20 Temp 10/13 97.5 to 99.5f Ecoli found in Urine Patient placed on antibiotics to include ancef and Vanc Please clarify if Sepsis was still suspected or ruled out by the time of discharge. References: From the ICD-10-CM Coding Guidelines, use of terms such as likely, suspected, possible, or probable(associated with a specific diagnosis that is being evaluated, monitored, or treated as if it exists) are acceptable and can be coded in the inpatient setting when documented at the time of discharge. This documentation will become part of the patient???s medical record. Sincerely, Boaz Harris [facility] Information Management MILL OPERATOR * Provider Query - Hayder Vu MD - 10/30/2023 4:07 PM HOB MILL OPERATOR Greetings Dr. Vu, Both respiratory failure and respiratory insufficiency are listed in this chart. Please clarify which diagnosis is correct. 10/23 after spinal fusion, ACUTE respiratory failure is listed as a diagnosis. Patient had gone into cardiac arrest / seizure , had CPR with multi broken ribs. Maintaining sats and protecting airway,supplemental o2 per NC. 10/24 progress note(s) list acute respiratory insufficiency as a diagnosis. Please select one or more below. ___ Respiratory insufficiency only __X_ Respiratory failure (Acute) ___ Both respiratory failure followed by insufficiency ___ Both ruled out ___ Other (Please state other below.) Additional Provider Response: N/A Clinical Indicators/Treatments: As above, please clarify respiratory status. References: From the ICD-10-CM Official Guidelines for [...] part of the patient???s medical record. Sincerely, Boaz Harris [facility] Information Management MILL OPERATOR * Plan of Care - Nathalie Herrera RN - 10/30/2023 2:38 PM CST [facility] unable to accept due to insurance. Referrals sent to remaining home health agencies that serve patient's zip code: [facility]unable to accept due to [facility]ing limitations [facility]---unable to accept due to staffing limitations [facility]---unable to accept due to insurance. [facility]--unable to accept due to staffing limitations [facility]--unable to accept due to insurance. At this time, all home health agency options have been exhausted. Unable to secure home health therapy. Called patient's spouse Phna to update. No further case management needs identified at this time MILL OPERATOR MILL OPERATOR MILL OPERATOR MILL OPERATOR * Plan of Care - Matilda Gonzales RN - 10/30/2023 1:52 PM CST Problem: Health Behavior: Goal: Understanding [...] home environment Outcome: Adequate for Discharge Problem: Activity: Goal: [...] for Discharge Problem: Lack of Knowledge: Goal: Verbalization of understanding the information provided will improve Outcome: Adequate for Discharge Problem: Urinary Elimination: Goal: Amount of urine per voiding will increase Outcome: Adequate for Discharge Goal: Experiences of bladder distention will decrease Outcome: Adequate for Discharge Goal: Ability to verbalize comfortable feeling after voiding will improve Outcome: Adequate for Discharge Goal: Identification of resources available to assist in meeting health care needs will improve Outcome: Adequate for Discharge Goals: Clinical Goals for the Shift: Vital signs monitoring, toileting and management of urgency, good night sleep Summary: Pt continues to struggle with bladder/bowel control, spouse states he missed a botox injection appt in August w/ urologist and will follow up. Pt/spouse continue to get up and ambulate w/o notifying or waiting for staff, pt leaves trail to toilet. Depends are useful when applied properly.D/c instructions read w/ pt/spouse after they read them separately, questions answered. Meds and activities discussed. Mobile pharm delivered, IVs and tele removed. Pt transported down to vehicle. Declined PRN pain med for trip home. MILL OPERATOR * Plan of Care - Nathalie Herrera RN - 10/30/2023 1:21 PM CST [facility] accepted patient pending insurance approval Patient is eager to discharge prior to home health being set up. Patient and MD team agreeable for patient to discharge knowing home health may not be secured due to insurance or staffing limitations. Received permission from patient to send referrals to remaining six home health agencies that serve patient's zip code if [facility] is unable to accept. Will contact patient's Cynda at [phone] if and when home health is secured. MILL OPERATOR * Plan of Care - Nathalie Herrera RN - 10/30/2023 9:29 AM CST [facility] unable to accept. MILL OPERATOR * Plan of Care - Suzanne Mendoza RN - 10/30/2023 5:08 AM CST Goals: Clinical Goals for the Shift: Vital signs monitoring, toileting and management of urgency, good night sleep Summary: Patient able to rest, he is ambulating with more confidence just needed some gear up on standing up. He has no pain and refused to have any other pain medications besides what has been scheduled. BP slightly elevated more than his usual numbers, MD informed and will have it reviewed with the team. Patient up on the chair now, call lights and bedside table at reach, comfortable and has no further complaints. Problem: Health Behavior: Goal: Understanding of discharge [...] injury in home environment Outcome: Progressing Problem: Activity: Goal: Mobility will [...] Outcome: Progressing Problem: Lack of Knowledge: Goal: Verbalization of understanding the information provided will improve Outcome: Progressing Problem: Urinary Elimination: Goal: Amount of urine per voiding will increase Outcome: Progressing Goal: Experiences of bladder distention will decrease Outcome: Progressing Goal: Ability to verbalize comfortable feeling after voiding will improve Outcome: Progressing Goal: Identification of resources available to assist in meeting health care needs will improve Outcome: Progressing MILL OPERATOR * Plan of Deny - Matilda Gonzales RN - 10/29/2023 6:50 PM CST Problem: Health Behavior: Goal: Understanding [...] injury in home environment Outcome: Progressing Problem: Activity: Goal: Mobility will [...] Outcome: Progressing Problem: Lack of Knowledge: Goal: Verbalization of understanding the information provided will improve Outcome: Progressing Problem: Urinary Elimination: Goal: Amount of urine per voiding will increase Outcome: Progressing Goal: Experiences of bladder distention will decrease Outcome: Progressing Goal: Ability to verbalize comfortable feeling after voiding will improve Outcome: Progressing Goal: Identification of resources available to assist in meeting health care needs will improve Outcome: Progressing Goals: Clinical Goals for the Shift: Vital signs monitoring, sleep Summary: Pt drowsy easily during the day, sleep hygiene protocols used. Spousal visit assisted w/ stimulation. Condom caths continue to fall off when pt stands or has surge of urine; pt and spouse made decision to use depends for ease of walking to toilet/clean up. EPC used for sacral chaffing. Several emergency management consultant residents notified regarding drain which accidentally came out during care. MILL OPERATOR * Plan of Care - Suzanne Mendoza RN - 10/29/2023 2:48 AM CST Goals: Clinical Goals for the Shift: Vital signs monitoring, sleep Summary: Patient verbalize that he does not want to take any narcotic for pain and he is not in pain. He just wanted a sleep aide so he can have a good night rest. He had a BM and ambulated from bed to bathroom and back with set up assist. Sleeping and resting comfortably with no further complaints. Problem: Health Behavior: Goal: Understanding of discharge needs will improve Outcome: Progressing Problem: Lack of Knowledge: Goal: Ability to state ways to decrease the risk of falls will improve Outcome: Progressing Problem: Safety: Goal: Will remain free from falls Outcome: Progressing Problem: Activity: Goal: Mobility will improve Outcome: Progressing Problem: Lack of Knowledge: Goal: Understanding of ways to prevent future skin breakdown will improve Outcome: Progressing Problem: Lack of Knowledge: Goal: Ability to develop a pain control plan will improve Outcome: Progressing Problem: Sensory: Goal: Pain level will decrease Outcome: Progressing MILL OPERATOR * Plan of Care - Erick Melchor RN - 10/28/2023 4:10 PM CST Goals: Clinical Goals for the Shift: rest, pain control, monitor vs and drain output Problem: Health Behavior: Goal: Understanding of discharge needs will improve 10/28/2023 1610 by Erick Melchor RN Outcome: Progressing 10/28/2023 1610 by Erick Melchor RN Outcome: Progressing Problem: Lack of Knowledge: Goal: Ability to state ways to decrease the risk of falls will improve 10/28/2023 1610 by Erick Melchor RN Outcome: Progressing 10/28/2023 1610 by Erick Melchor RN Outcome: Progressing Problem: Safety: Goal: Will remain free from falls 10/28/2023 1610 by Erick Melchor RN Outcome: Progressing 10/28/2023 1610 by Erick Melchor RN Outcome: Progressing Goal: Will remain free from injury from falls 10/28/2023 1610 by Erick Melchor RN Outcome: Progressing 10/28/2023 1610 by Erick Melchor RN Outcome: Progressing Goal: Will remain free from falls and injury in home environment 10/28/2023 1610 by Erick Melchor RN Outcome: Progressing 10/28/2023 1610 by Erick Melchor RN Outcome: Progressing Problem: Activity: Goal: Mobility will improve 10/28/2023 1610 by Erick Melchor RN Outcome: Progressing 10/28/2023 1610 by Erick Melchor RN Outcome: Progressing Problem: Lack of Knowledge: Goal: Understanding of ways to prevent future skin breakdown will improve 10/28/2023 1610 by Erick Melchor RN Outcome: Progressing 10/28/2023 1610 by Erick Melchor RN Outcome: Progressing Goal: Ability to identify appropriate dietary choices will improve 10/28/2023 1610 by Erick Melchor RN Outcome: Progressing 10/28/2023 1610 by Erick Melchor RN Outcome: Progressing Problem: Nutritional: Goal: Dietary intake will improve 10/28/2023 1610 by Erick Melchor RN Outcome: Progressing 10/28/2023 1610 by Erick Melchor RN Outcome: Progressing Goal: Ability to maintain a balanced intake and output will improve 10/28/2023 1610 by Erick Melchor RN Outcome: Progressing 10/28/2023 1610 by Erick Melchor RN Outcome: Progressing Problem: Skin Integrity: Goal: Risk for impaired skin integrity will decrease 10/28/2023 1610 by Erick Melchor RN Outcome: Progressing 10/28/2023 1610 by Erick Melchor RN Outcome: Progressing Goal: Ability to demonstrate warm and dry skin will improve 10/28/2023 1610 by Erick Melchor RN Outcome: Progressing 10/28/2023 1610 by Erick Melchor RN Outcome: Progressing Goal: Circulation will improve to fullest extent possible 10/28/2023 1610 by Erick Melchor RN Outcome: Progressing 10/28/2023 1610 by Erick Melchor RN Outcome: Progressing Problem: Lack of Knowledge: Goal: Ability to develop a pain control plan will improve 10/28/2023 1610 by Erick Melchor RN Outcome: Progressing 10/28/2023 1610 by Erick Melchor RN Outcome: Progressing Goal: Ability to identify pain intensity on a pain scale and rate it consistently will improve 10/28/2023 1610 by Erick Melchor RN Outcome: Progressing 10/28/2023 1610 by Erick Melchor RN Outcome: Progressing Goal: Ability to notify healthcare provider of pain before it becomes unmanageable or unbearable will improve 10/28/2023 1610 by Erick Melchor RN Outcome: Progressing 10/28/2023 1610 by Erick Melchor RN Outcome: Progressing Problem: Medication: Goal: Satisfaction with pain management regimen will improve 10/28/2023 1610 by Erick Melchor RN Outcome: Progressing 10/28/2023 1610 by Erick Melchor RN Outcome: Progressing Problem: Sensory: Goal: Ability to identify factors that increase the pain will improve 10/28/2023 1610 by Erick Melchor RN Outcome: Progressing 10/28/2023 1610 by Erick Melchor RN Outcome: Progressing Goal: Pain level will decrease 10/28/2023 1610 by Erick Melchor RN Outcome: Progressing 10/28/2023 1610 by Erick Melchor RN Outcome: Progressing Problem: Lack of Knowledge: Goal: Verbalization of understanding the information provided will improve 10/28/2023 1610 by Erick Melchor RN Outcome: Progressing 10/28/2023 1610 by Erick Melchor RN Outcome: Progressing Problem: Urinary Elimination: Goal: Amount of urine per voiding will increase 10/28/2023 1610 by Erick Mlechor RN Outcome: Progressing 10/28/2023 1610 by Erick Melchor RN Outcome: Progressing Goal: Experiences of bladder distention will decrease 10/28/2023 1610 by Erick Melhcor RN Outcome: Progressing 10/28/2023 1610 by Erick Melchor RN Outcome: Progressing Goal: Ability to verbalize comfortable feeling after voiding will improve 10/28/2023 1610 by Erick Melchor RN Outcome: Progressing 10/28/2023 1610 by Erick Melchor RN Outcome: Progressing Goal: Identification of resources available to assist in meeting health care needs will improve 10/28/2023 1610 by Erick Melchor RN Outcome: Progressing 10/28/2023 1610 by Erick Melchor RN Outcome: Progressing MILL OPERATOR * Plan of Care - Ritu Marin RN - 10/28/2023 1:05 AM CST Problem: Health Behavior: Goal: Understanding [...] injury in home environment Outcome: Progressing Problem: Activity: Goal: Mobility will improve Outcome: Progressing Goals: Clinical Goals for the Shift: rest, pain control, monitor vs and drain output Summary: Pt resting comfortably. Pain controlled with oxycodone. Pt stated he would call out when in need of pain meds. VS and drain output documented. MILL OPERATOR * Significant Event - Viry Patterson MD - 10/26/2023 5:11 PM CST Medicine Consult Sign off: 73 year old male s/p L4-5 open posterior spinal fusion with instrumentation, L4- 5 transforaminal lumbar interbody fusion, L4-5 direct decompression. PMH: UTI, HTN, prostate CA s/p prostatectomy (~2010), GERD, obesity, melanoma (2007), CKD. Medicine consulted for management of anticoagulation. Recommendations: - Patient will need at least 3 months of anticoagulation, and can follow up with PCP for consideration of discontinuation - If no other surgical interventions planned at this time, can transition to therapeutic Lovenox vsEliquis per primary team. Medicine Consults will sign off. Please call [phone] for further questions. Viry Patterson MD PGY3 Internal Medicine MILL OPERATOR * Assessment & Plan Note - Viry Patterson MD - 10/26/2023 5:11 PM HOB MILL OPERATOR Associated Problem(s): Pulmonary embolism (HCC) Patient with new PE on CT PE 10/23. Tolerating heparin gtt. Likely provoked in setting of recent surgery. - Patient will need at least 3 months of anticoagulation, and can follow up with PCP for consideration of discontinuation - If no other surgical interventions planned at this time, can transition to therapeutic Lovenox vsEliquis per primary team. MILL OPERATOR * Plan of Care - Luana Savage RN - 10/26/2023 2:49 PM CST Per Medical Chart/Rounds/IDR: Per IDR rounds with Capacity Planning Analyst, Assistant Chief Of Police, Charge Nurse, and MD, the patient is medically stable for discharge at this time. 73 y.o. male here d/t C/f left obstructing ureteral stone with UTI ADD: 10/27 Plan/referrals made/in place: patient has PT/OT rec's for rehab. Patient want to DC home. HH list provided to patient/family. They have not picked a HH agency. Patient may discharge to different address than stated on face sheet. Support following discharge: PHAN (Spouse) Transportation: family F/U Appointments: November 12 at 9:20 Plan for weekend discharge: Please follow up with family r/t HH agency For weekend assistance, please check the treatment team in [facility] for the assigned binder caser or contact the weekend Case Management phone MILL OPERATOR * Plan of Care - Harvey Horn RN - 10/26/2023 2:26 AM CST Problem: Lack of Knowledge: Goal: Verbalization of understanding the information provided will improve Outcome: Progressing Problem: Urinary Elimination: Goal: Amount of urine per voiding will increase Outcome: Progressing Goal: Experiences of bladder distention will decrease Outcome: Progressing Goal: Ability to verbalize comfortable feeling after voiding will improve Outcome: Progressing Goal: Identification of resources available to assist in meeting health care needs will improve Outcome: Progressing Goals: Clinical Goals for the Shift: VSS, pain control, TTF Summary: transferred from ICU. Pt on heparin drip at 24.1 units/kg/hr, dose verified with Annetta Olvera RN. On telemetry. O2 saturation <90%, oxygen initiated at 2.5L via nasal cannula. Repositioned for comfort. MILL OPERATOR MILL OPERATOR * Significant Event - Tia Nolan NP - 10/25/2023 8:13 PM HOB MILL OPERATOR CHUGG-OUT (SICU to OU/Floor Transfer) SICU MD HANDOFF HPI: 73yo M preadmitted 10/12 for complicated E. Coli UTI prior undergoing a planned orthopaedic spine surgery, c/b periop seizure and postop code w ROSC after 2min CPR. PMH: DJD, prostate cancer s/p prostatectomy (2010), HTN Hospital events: 10/12 presented to ED from preoperative anesthesia visit due to concerning UA 10/12 admitted to Medicine from ED w complicated E. Coli UTI w L ureteral stone 10/13 L ureteral stent aborted by Urology 10/14 L perc nephrostomy by IR 10/18 return to OR with Urology for laser lithotripsy and removal of 2 ureteral stones, removal of nephrostomy tube, placement of L ureteral stent 10/23: OR w Ortho Spine for open L4-L5 PSF, laminectomy, with autograft, allograft; at end of procedure noted to be shivering with right gaze deviation followed by generalized seizure and code in PACU 10/25: bMRI: 1. Thin bilateral convexity subdural hematomas, not significantly changed in size compared to the prior head CT. MD Consults: [] ACCS [] Cardiology [] Endo [] ENT [] GI [] Hand [] ID [] Neuro [] NSGY [x] Ortho [] Pain [] PRS [] Renal [] Spine-NSGY [] Spine-Ortho [] Urology [] Other: medicine consult placed pt has not been seen by medicine yet Rehab/Ancillary Consults: [] BI (trauma patient with LOC) [] Chemical dependency [] PT [] OT [] Speech [] PM&R [] SMART (stroke patient) [] Wound care SITUATIONAL AWARENESS PERTINENT physical exam findings on day of transfer: subacute SDH New findings that warrant follow-up and pending studies: [x] Yes--describe: - need repeat non-con head ct when heparin is therapeutic. [] None Important changes to home medications: [x] Home medications stopped/on hold:diltiazem and avapro [] Dose changes: [] No notable changes New medications to consider stopping prior to hospital discharge: [] New antipsychotic (started for ICU delirium): [] Other: Disposition/Planning: Eval by LTAC/Rehab/SNF [] Yes [x] No [] N/A PT recommends inpatient rehab on dc. Facility: [facility] Contact: Cynda - CURRENT ANTICOAGULANT THERAPY [] VTE Prophylaxis [] Heparin [] Lovenox [] SCDs [] IVC Filter [] Other: [] None - Reason: [] Therapeutic Anticoagulation Indication: Bilateral PE new this admission [x] Heparin [] Lovenox [] Other: Any previous issues with tolerating anticoagulants? [] Yes [x] No Describe: Venous duplex performed? [] Yes ---> Most recent findings: [x] No CURRENT ANTIMICROBIAL THERAPY Ancef prophylaxis x 9 doses for new hardware finishes on 10/26 LINES/DRAINS/AIRWAYS PRESENT Peripheral IV 10/13/23 20 G Left Antecubital (Active) Number of days: 12 Peripheral IV 10/18/23 18 G Right Hand (Active) Number of days: 7 Peripheral IV 10/23/23 20 G Left Forearm (Active) Number of days: 2 Closed/Suction/Open Drain 1 Right Back Bulb 10 Fr. (Active) Number of days: 2 TO-DO LIST PRIOR TO TRANSFER Make sure the following monitors or precautions are ordered if indicated: Telemetry [x] Yes [] No Continuous pulse oximetry [x] Yes [] No KYLE precautions [] Yes [x] No Difficult airway [] Yes [x] No Trach orders/signage [] Yes [x] No Size/Type: Date placed: Did patient require insulin while in SICU? [] Yes, scheduled insulin [] Yes, sliding scale only ----> d/c SICU insulin and order floor sliding scale insulin [x] No ----> d/c SICU insulin and blood [...] or discontinued) [x] Sign-out was called to dr. Ruano of the ortho service. QUESTIONS? Call [phone] (2200 Blue 2). MILL OPERATOR * Consults, Subsequent - James Silva MD - 10/25/2023 4:38 PM CST NEUROLOGY BRIEF UPDATE/SIGN OFF NOTE Interval History/Subjective: Patient's rEEG and brain MRI were unrevealing. He continues to be on Keppra 1 g BID. A/P: Mr. Evans is a 73 y.o. male with a history of prostate cancer s/p RRP, HTN, severe LLE lumbar radiculopathy 2/2 left L4-L5 disc herniation who presents with seizure like activity. The patient had seizure like activity immediately prior to having an cardiac arrest. Unclear whether this activity represents a syncopal episodes due to hypoperfusion of the brain vs generalized activity from a seizure causing cardiac arrest. Given that there is a structural lesion in the head CT (white matter hypoattentuation in L frontal pole) with potentially consistent seizure semiology (right gaze deviation), the patient's episode may represent a seizure. If the patient had a seizure, it is provoked in the setting of acute infection and hypoperfusion in the setting of impending arrest. It is unlikely the patient will require anti-seizure medication usp, but it is reasonable to con tinue AEDs for now given his acute state. Workup thus far includes rEEG which revealed left hemisphere slowing, and brain MRI revealing thin bilateral convexity subdural hematomas without any evidence of neuronal migration. The left hemisphere slowing may be concerning for focal cerebral dysfunction, thus it would be justifiable to continue Keppra until follow up outpatient. Recommendations: # Concerns for Seizure Continue Keppra 1000 mg BID for now until follow up outpatient neurology. A referral has been placed for follow-up with [facility]. Please provide their number in the discharge instructions: [phone] The neurology consult service will sign off at this time. Please call the neurology consult phone at [phone] (Senior) with questions. James Silva MD Neurology resident PGY-3 MILL OPERATOR * Plan of Care - Tamia Holman RN - 10/25/2023 10:41 AM CST Goals: Clinical Goals for the Shift: VSS, pending MRI, pain control, continue heparin drip, PM labs Summary: Plans for the day, pain control, VSS, labs/monitor hepain gtt, MRI pending. MILL OPERATOR * Plan of Care - Edwige Porras RN - 10/24/2023 10:45 PM CST Goals: Clinical Goals for the Shift: VSS, pending MRI, pain control, continue heparin drip, PM labs Problem: Health Behavior: Goal: Understanding of discharge needs will improve Outcome: Progressing Problem: Lack of Knowledge: Goal: Ability to state ways to decrease the risk of falls will improve Outcome: Progressing Problem: Safety: Goal: Will remain free from falls Outcome: Progressing Goal: Will remain free from injury from falls Outcome: Progressing Problem: Activity: Goal: Mobility will [...] Safety: Goal: Will remain free from falls and injury in home environment Outcome: Defer MILL OPERATOR * Initial Assessments - Jacqueline Walker MSW - 10/24/2023 12:27 PM CST Social Work Assessment Clinical Dx: Ureteral colic Past Medical History: Date of last inpatient admission: Previous admit date: N/A Number of inpatient admissions in past year: 1 Reason for Current Hospitalization (Pt/Caregiver Stated): back pain that turned into much more (10/24/23 120) Patient Information: Information Obtained From: Patient Marital Status: Does Pt have Legal Guardian, Surrogate Decision Maker or Healthcare Agent? 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 Payor Source: Medicare advantage Race: White/ Ethnicity: Non- Sexual Orientation : BIBI Gender Identity: Male Service : none (10/24/23 1207) Current Situation: Current Situation Living Arrangements: Spouse/significant other Type of Residence: Private residence Income: Employed Financial assistance: Unknown Education Level : Unable to assess How do you Pay for Medication: insurance Current Transportation: Family/friends (currently, has been driving ) What do you do with your Free Time: work is his passion (10/24/231206) Legal History: Legal History Legal Information : Other (Comment) (unable to assess) (10/24/231206) Support Systems and Spirituality: Support Systems and Spirituality Support System: Spouse, Children Spouse Name/Contact Information: Phan Evans, [phone], spouse Children Name/Contact Information: son, Hayder Evans, ; son, Stefan Evans, ; daughter, Annetta Pina, Family Perspective: Phan stated that Hira has three children, and she has two children of her own so they have a total of five children. Phan stated that they have a good support system. Do you have a Denominational Preference or Affiliation?: No Are there any Denominational Practices that are important to maintain while admitted?: No Do you have Cultural Factors that are important to you?: No Description of Childhood: BIBI History of physical abuse? : Refused to answer (unable to assess) History of physically abusing others? : Refused to answer (unable to assess) History of sexual abuse?: Refused to answer (unable to assess) History of sexually abusing others? : Refused to answer (unable to assess) History of Mental/Emotional Abuse? : Refused to answer (unable to assess) (10/24/231206) Strengths, Assets, Liabilities and Stressors: Strengths, Assets, Liabilities, and Stressors Strengths (Must Choose Two): Interpersonal relationships and supports,i.e., family, friends, peers,Access to housing/residential stability, Steady employment, Financial stability Patient Assets: Employed, Home, Income, Insured, Transportation, Supportive family Hope and Strength during Difficult Times: unable to assess Does Pt have access to Employee Assistance Program: Yes (10/24/231206) SDOH Transportation Needs: No Transportation Needs (10/24/2023) PRAPARE - Transportation Lack of Transportation (Medical): No Lack of Transportation (Non-Medical): No Financial Resource Strain: Low Risk (10/24/2023) Overall Financial Resource Strain (CARDIA) Difficulty of Paying Living Expenses: Not hard at all Housing Stability: Low Risk (10/24/2023) Housing Stability Vital Sign Unable to Pay for Housing in the Last Year: No Number of Places Lived in the Last Year: 1 Unstable Housing in the Last Year: No Social Connections: Moderately Isolated (10/24/2023) Social Connection and Isolation Panel [NHANES] Frequency of Communication with Friends and Family: More than three times a week Frequency of Social Gatherings with Friends and Family: More than three times a week Attends Denominational Services: Never Active Member of Clubs or Organizations: No Attends Club or Organization Meetings: Never Marital Status: Food Insecurity: No Food Insecurity (10/24/2023) Hunger Vital Sign Worried About Running Out [...] Little Interest or Pleasure in Doing Things: (unable to assess) Feeling Down, Depressed, or Hopeless: (unable to assess) Over the past 2 weeks, how often have you been bothered by any of the following problems? Little Interest or Pleasure in Doing Things: (unable to assess) Feeling Down, Depressed, or Hopeless: (unable to assess) E-Cigarette/Vaping Questions Responses E-cigarette/Vaping Use Never User Substance Abuse, Mental Health, and Trauma History: Chemical Dependency, Mental Health & Trauma History Chemical Dependency: spouse reports to concerns in this area Mental Health: spouse reports that patient is a positive person , and that patient has been weary with everything going on but is still hopeful. spouse has no mental health concerns for her at this time. (10/24/23 2430) Risk to Self and Others: Risk to Self and Others Violence risk to self in past 6 months? : Unable to assess Self Harm/Suicidal Ideation Plan: Unable to assess Violence risk to others in past 6 months? : Unable to assess Any lifetime risk of violence to others? : Unable to assess (10/24/23 9209) Impressions and Recommendations: Patient is 73 year old male preadmitted since 10/12 for complicatedUTI prior undergoing a planned orthopaedic spine surgery. Social Work was consulted for high risk for readmission (25%). Social Work spoke with patient's spouse, Phan Evans, , by phone to discuss financial, housing, transportation, social connections, food, and mental health needs and complete assessment. Social Work discussed advanced care planning including surrogate decision makers, durable power of patent attorney, and advanced directives. Patient has a POA on file, dated 2007, that spouse, Phan, affirmed to be current. POA lists: Agent: Phan Evans; 1st Alternate: Kaiser Kainjacinda, brother; 2nd Alternate: Janene Irvinlinda, sister. Patient's spouse, Phan, states that Hira is a positive person and that work is his passion andthat they are hopeful that things are moving in the right direction. Phan states patient has been weary with all the medical issues and surgeries since 10/12, but reports Hira is still positive . Patient reports that she has no concerns in the areas of finances, housing, transportation, social connections, food, or mental health needs. No social work needs identified at this time. Social Work will remain available to address patient's needs. CM following for discharge planning. GEN Medina, SPLITTING MACHINE OPERATOR MILL OPERATOR * Significant Event - Nasir Manzanares MD - 10/23/2023 10:14 PM HOB MILL OPERATOR At the end of the OR case, patient was able to move all extremities and was successfully extubated.He did appear diaphoretic but vitals were otherwise stable. Upon arrival to PACU, patient developed a fixed Rightward gaze and then had what appeared to be a tonic-clonic seizure followed by cardiac arrest. CRP was started and performed for 2 minutes. Patientgot a dose of epi during this first round of CPR and was found to have a pulse on first pulse check. CPR was stopped at this time. An a-line was placed. Glucose was checked and was normal. ABG demonstrated a mixed respiratory acidosis. Patient was able to maintain airway for 30 minutes in PACU so repeat intubation was not performed in PACU. Patient was brought to ICU. Nasir Manzanares MD Orthopaedic Surgery PGY2 Cosigned by Hayder Vu MD at 10/23/2023 11:31 PM HOB MILL OPERATOR MILL OPERATOR MILL OPERATOR Associated attestation - Hayder Vu Jr., MD - 10/23/2023 11:31 PM HOB MILL OPERATOR Upon transfer to PACU, patient was noted to have a seizure and subsequently went into cardiac arrest. CPR was performed for 2 minutes and ROSC was achieved. Workup in the PACU notable for mixed respiratory acidosis. He was transferred to SICU for further workup and stabilization. I was with the patient at the bedside after ROSC and transferred him to SICU. I have spoken with his , Pahn, twice and have updated her on his situation. Appreciate excellent care by SICU. We will continue to follow closely. Hayder Vu Jr., MD Sandblast Operator Department of Orthopaedic Surgery Division of Spine Surgery [facility] [place], [place] * Op Note - Hayder Vu MD - 10/23/2023 5:14 PM CST Operative Report Surgeon Hayder Vu MD Gun Profiler(s) Nasir Manzanares MD Anesthesia General endotracheal. Preoperative Diagnosis 1. Left L4 and L5 radiculopathy 2. L4-L5 herniated nucleus pulposus 3. Lumbar spondylosis 4. Lumbar spinal stenosis Postoperative Diagnosis Same Procedure(s) 1. Posterior spinal fusion with instrumentation L4-L5 using Globus Creo 2. Transforaminal lumbar interbody fusion L4-L5 3. Laminectomy L4-L5 4. Application of expandable titanium Globus Sable interbody cage L4-L5 5. Augmentation of posterior spinal fusion with autograft morselized bone graft (30 cc), crushed cancellous chips allograft (30 cc) and iFactor allograft bone putty (2.5 cc) 6. Use of intraoperative neuro monitoring Indications for Surgery Hira Evans is a 73 y.o. male who presented with severe left lower extremity radiculopathyand weakness secondary to L4-L5 herniated nucleus pulposus, lumbar spondylosis, and lumbar spinal stenosis. Nonoperative management was attempted including a transforaminal epidural steroid injection; however, the patient developed increasing left quadriceps weakness and requested surgery. During the course of his preoperative workup, he was found to have a UTI and had rapid functional decline related to this infection so he was admitted to the hospital where he was discovered to have a complicated UTI with a left ureteral stone, hydronephrosis, and pyelitis. He was treated successfully for this with urology and interventional radiology interventions as well as antibiotics. He remained in the hospital on the general medicine service and recovered over the course of 1 week. I spoke with his primary and consulting teams and all felt that he was safe to proceed with lumbar spine surgery. The indications for the procedure, the potential risks, expected benefits, and alternatives to surgery were discussed with the patient and the patient gave his informed consent to proceed. Operative Findings 1. Lumbar spondylosis 2. Left-sided L4-L5 neural foraminal and lateral recess stenosis with compression of the exiting left L4 and traversing left L5 nerves at this level, respectively Description The operative site was identified and [...] were placed. A Harris catheter was placed. The patient was then turned prone onto the [facility] Steven table. All bony prominences were properly padded and the patient's abdomen and axillae were allowed to hang free. The patient's head and neck were supported using a prone view positioner. Once we were satisfied with the patient's position on the operating table, the patient was secured to the table. The entire posterior lumbar spine was then prepped and draped in the usual sterile fashion using alcohol and ChloraPrep. A surgical time-out was performed identifying the correct patient, procedure, and operative site. Amidline incision was made and electrocautery was used to expose the posterior lumbar spine at L4-L5. X-rays were used to localize the correct operative level. The spinous processes, lamina, pars, andtransverse processes were exposed of L4 and L5. The L4-L5 facet joints were also exposed. Care was taken to protect the L3-L4 facet capsules and these were not violated. Pedicle screw instrumentation was placed using freehand technique using a high- speed bur to create our start point followed by a flexible drill to cannulate the pedicle and then a ball-tip probe to palpate a floor and 4 hwang cranially, caudally, medially, and laterally. A 6.5 mm tap was used to create a tract for the pedicle screw. An appropriately sized screw was then placed. Fluoroscopy was utilized in the AP and lateral planes and an O arm image was obtained to confirm appropriate positioning of our screws. All screws appeared to be appropriately placed. We then stimulated all of our screws and all were over a threshold of 18. We then turned our attention to performing the TLIF. A rongeur was used to remove the interspinous ligaments, distal 50% of the L4 spinous process, and proximal 50% of the L5 spinous process. A lamina humanities coordinator was placed between the remainder of the spinous processes. A left L4 inferior facetectomywas performed using a high-speed bur followed by an osteotome. This exposed the superior articular process of L5 on the right. A sublaminar decompression was performed of L4 using a high-speed bur, Kerrison rongeurs, and an osteotome. The left L5 superior articular process was then removed using a high-speed bur and an osteotome. This exposed the disc space at the L4-L5 level. The exiting left L4 nerve was identified and was protected as was the thecal sac during the remainder of the case. A 15blade was used to enter the L4-L5 disc. A series of Angela was used starting at a size [address] up to a size 10. These were used to remove the disc and cartilage from the L4-L5 disc space. Carewas taken not to violate the cortical bone of the endplates. A series of curettes, pituitaries, andrasps were then used to complete the diskectomy and disc prep. A bone funnel containing autograft was then inserted into the disc space and autograft was deployed into the disc space. After this, ourinterbody implant was placed under fluoroscopic guidance. A Globus Sable [id number] 7-14mm 15 Deg lordo tic cage was used and expanded under fluoroscopy. We then completed the laminectomy of the L4-L5 segment. A Kerrison and osteotome were used to perform a central decompression and bilateral lateral recess decompression. The traversing L5 nerves werenoted to be free and clear without any obstruction bilaterally and the exiting L4 nerves were also visualized and noted to be free and clear without obstruction. The decompression was confirmed with a [place] elevator which was able to be passed freely without resistance. After this was completed, we placed rods into the screws which were secured in place using the appropriate set screws and were final tightened using a torque counter-torque device. Following this, the wound was irrigated with sterile saline. The posterior elements including the spinous processes, lamina, pars, the right L4-L5 facet joint, and transverse processes of L4 and L5 were decorticated with high-speed bur. The remainder of the autograft was placed over the transverse processes on the right side and in the right L4-L5 facet joint. Then, 30 cc of crushed cancellous allograft chips were placed over the decorticated posterior elements. Care was taken not to let graft enter into the site of the TLIF so as to avoid nerve irritation. 1 g of vancomycin powder was instilled into the wound. A deep drain was placed. We then closed the wound in layers with 1. Vicryl interrupted sutures in the muscle followed by 1. Stratafix PDS in watertight fashion for fascial closure.Dermis was reapproximated with 2-0 Vicryl interrupted followed by 3-0 nylon in the skin. A sterile dressing was applied. The patient was transferred from the operative table to the hospital bed. Anesthesia was reversed and the patient was extubated. The patient was then brought to PACU. Upon arrival to PACU, the patient then experienced a seizure followed by cardiac arrest and underwent CPR and further intensive care as has been documented in the medical record. Neuromonitoring data remained stable during the procedure. I performed the entire procedure. Implant Information Implant Name Type Inv. Item Serial No. Botany Laboratory Assistant Lot No. LRB No. Used Action ALLOSOURCE Crushed Chip Frozen Graft 30ml Bone Cancellous [id number] - [id number] ALLOSOURCE CrushedChip Frozen Graft 30ml Bone Cancellous [id number] Allosource [id number] N/A 1 Implanted [employer] Allograft Bone Putty 2.5CC 700-025 - [id number] [employer] Allograft Bone Putty2.5CC 700-025 [employer] [id number] N/A 1 Implanted GLOBUS MEDICAL Creo Od7.5 Mm L55 Mm Thread Polyaxial Spine Screw Bone Titanium 5146.1757 - [id number] GLOBUS MEDICAL Creo Od7.5 Mm L55 Mm Thread Polyaxial Spine Screw Bone Titanium 5146.1757 Globus Medical N/A 1 Implanted G[employer] Creo Od7.5 Mm L50 Mm Thread Polyaxial Spine Screw Bone Titanium 5146.1752 - [id number] GLOBUS MEDICAL Creo Od7.5 Mm L50 Mm Thread Polyaxial Spine Screw Bone Titanium 5146.1752 Globus Medical N/A 3 Implanted GLOBUS [employer]ICAL Creo Thread Spinal Cap Locking Nonsterile 1119.0010 - [id number] G[employer] Creo Thread Spinal Cap Locking Nonsterile 1119.0010 Globus Medical N/A 4 Implanted GLO[employer]ICAL Implant Spinal Sable [id number] 7-14mm 15 Deg 1172.2121S - [id number] GLOBUS MEDICAL Implant Spinal Sable [id number] 7-14mm 15 Deg 1172.2121S Globus Medical N/A 1 Implanted G[employer] Creo 5.5mm 45mm Curve Daniel Spinal Titanium 1119.7045 - [id number] GLOBUS MEDICAL Creo 5.5mm 45mm Curve Daniel Spinal Titanium 1119.7045 Globus Medical N/A 2 Implanted Specimens None. Counts Correct. Estimated Blood Loss 150 mL. Total IV Fluids 1500 mL. Complications None. Condition on Discharge from OR Stable. Hayder Vu Jr., MD Sandblast Operator Department of Orthopaedic Surgery Division of Spine Surgery [facility] [place], [place] Operative Report dictated by Hayder Vu MD on 10/26/23 using Fluency Direct. Transcriptionvariances may occur. MILL OPERATOR MILL OPERATOR MILL OPERATOR * Brief Op Note - Nasir Manzanares MD - 10/23/2023 5:14 PM CST Operative Progress Note Surgical Team: Surgeon(s) and Role: * Hayder Vu MD - Primary * Nasir Manzanares MD - Resident - Assisting Anesthesiologist: Ann Salazar MD RADIO BOARD OPERATOR ANNOUNCER: Deisy Snyder CRNA Assistant Boys Track Coach: Alice Vaughn MD Telecommunications Field Engineer: Yeni Walker RN; Rena Michelle RN Scrub Relief: Sergio-Bibiana, Rad, ST Scrub: Teo Stiles ST Traffic Controller Cable: Belen Vladez MT FLOAT: Oneyda Foley NP DATE OF SURGERY : 10/23/2023 Preoperative Diagnosis: Pre-op Diagnosis * Lumbar radiculopathy [M54.16] Postoperative Diagnosis: Post-op Diagnosis * Lumbar radiculopathy [M54.16] Procedure(s): Procedure(s) (LRB): FUSION SPINAL - POSTERIOR LUMBAR/THORACIC WITH INSTRUMENTATION: L4-5 open posterior spinal fusion with instrumentation, L4-5 transforaminal lumbar interbody fusion, L4-5 laminectomy and direct decompression, spinal cord monitoring, autograft, allograft (N/A) LAMINECTOMY LUMBAR - POSTERIOR (N/A) SPINAL CORD MONITORING (N/A) Operative Findings: PSIF L4-L5 Left sided TLIF L4-L5 L4-L5 laminectomy/decompression Estimated Blood Loss: 150 mL Intraoperative Fluids: 1500 mls Specimens: No specimen collected in procedure Implants: Implant Name Type Inv. Item Serial No. Botany Laboratory Assistant Lot No. LRB No. Used Action ALLOSOURCE Crushed Chip Frozen Graft 30ml Bone Cancellous [id number] - [id number] ALLOSOURCE CrushedChip Frozen Graft 30ml Bone Cancellous [id number] Allosource [id number] N/A 1 Implanted [employer] [place] Allograft Bone Putty 2.5CC 700-025 - [id number] [employer] Allograft Bone Putty2.5CC 700-025 [employer] Inc [id number] N/A 1 Implanted [employer] Creo Od7.5 Mm L55 Mm Thread Polyaxial Spine Screw Bone Titanium 5146.1757 - [id number] GLOBUS MEDICAL Creo Od7.5 Mm L55 Mm Thread Polyaxial Spine Screw Bone Titanium 5146.1757 Globus Medical N/A 1 Implanted GLOBUS MEDICAL Creo Od7.5 Mm L50 Mm Thread Polyaxial Spine Screw Bone Titanium 5146.1752 - [id number] GLOBUS MEDICAL Creo Od7.5 Mm L50 Mm Thread Polyaxial Spine Screw Bone Titanium 5146.1752 Globus Medical N/A 3 Implanted GLOBUS MED[employer] Creo Thread Spinal Cap Locking Nonsterile 1119.0010 - [id number] GLOBUS MEDICAL Creo Thread Spinal Cap Locking Nonsterile 1119.0010 Globus Medical N/A 4 Implanted GLOBUS MEDICAL Implant Spinal Sable [id number] 7-14mm 15 Deg 1172.2121S - [id number] GLOBUS MEDICAL Implant Spinal Sable [id number] 7-14mm 15 Deg 1172.2121S Globus Medical N/A 1 Implanted GLOBUS [employer]ICAL Creo 5.5mm 45mm Curve Daniel Spinal Titanium 1119.7045 - [id number] GLOBUS MEDICAL Creo 5.5mm 45mm Curve Daniel Spinal Titanium 1119.7045 Globus Medical N/A 2 Implanted Blood/Blood Products Transfused: 0 mls Complications: None Condition on Discharge from the operating room was stable Nasir Manzanares MD Date: 10/23/2023 Time: 9:25 PM TEACHING ATTESTATION : I was present and directly participated in the entire procedure (including opening and closing). Cosigned by Hayder Vu MD at 10/26/2023 12:57 PM HOB MILL OPERATOR MILL OPERATOR MILL OPERATOR * Plan of Care - Stefany Crook RN - 10/23/2023 12:06 AM CST Problem: Safety: Goal: Will remain free from falls Outcome: Progressing Goals: Clinical Goals for the Shift: VSS, pain management, safety and comfort Summary: MILL OPERATOR * Plan of Care - Lisa Rudolph RN - 10/22/2023 6:16 PM CST Goals: Clinical Goals for the Shift: VSS, pain management, safety and comfort Problem: Health Behavior: Goal: Understanding of discharge [...] injury in home environment Outcome: Progressing Problem: Activity: Goal: Mobility will [...] Goal: Pain level will decrease Outcome: Progressing MILL OPERATOR * Plan of Care - Lana Turcios RN - 10/21/2023 11:54 AM CST Problem: Health Behavior: Goal: Understanding [...] injury in home environment Outcome: Progressing Problem: Activity: Goal: Mobility will [...] Goal: Pain level will decrease Outcome: Progressing Goals: Clinical Goals for the Shift: VSS, pain management, safety and comfort Summary: MILL OPERATOR * Plan of Care - Harmony Norman RN - 10/21/2023 12:00 AM CST Goals: Clinical Goals for the Shift: monitor Vs, pain safety and promote comfort and rest Summary: Patient AOx4, on room air. IV cannula on site. Vital signs taken and charted, due medications given. PRN pain medication given with good effect. Patient endorsed to NARENDRA Lemus for continuity of care. Problem: Health Behavior: Goal: Understanding of discharge [...] injury in home environment Outcome: Progressing Problem: Activity: Goal: Mobility will [...] Goal: Pain level will decrease Outcome: Progressing MILL OPERATOR * Plan of Care - Johnnie Flores RN - 10/20/2023 6:31 PM CST Problem: Health Behavior: Goal: Understanding [...] injury in home environment Outcome: Progressing Problem: Activity: Goal: Mobility will [...] Goal: Pain level will decrease Outcome: Progressing Goals: Clinical Goals for the Shift: VS WNL, pain control and safety. Summary: pt was with VS WNL, pain free, and safe. MILL OPERATOR * Plan of Care - Brandyn Cain RN - 10/20/2023 4:04 AM CST VSS. No falls. Pain was well controlled with PRN pain meds. Pt has a harris and remained continent of bowel. Pt slept through the night. Pt was amenable to care. Problem: Health Behavior: Goal: Understanding of discharge needs will improve Outcome: Ongoing Problem: Lack of Knowledge: Goal: Ability to state ways to decrease the risk of falls will improve Outcome: Ongoing Problem: Safety: Goal: Will remain free from falls Outcome: Ongoing Goal: Will remain free from injury from falls Outcome: Ongoing Goal: Will remain free from falls and injury in home environment Outcome: Ongoing Problem: Activity: Goal: Mobility will improve Outcome: Ongoing Problem: Lack of Knowledge: Goal: Understanding of ways to prevent future skin breakdown will improve Outcome: Ongoing Goal: Ability to identify appropriate dietary choices will improve Outcome: Ongoing Problem: Nutritional: Goal: Dietary intake will improve Outcome: Ongoing Goal: Ability to maintain a balanced intake and output will improve Outcome: Ongoing Problem: Skin Integrity: Goal: Risk for impaired skin integrity will decrease Outcome: Ongoing Goal: Ability to demonstrate warm and dry skin will improve Outcome: Ongoing Goal: Circulation will improve to fullest extent possible Outcome: Ongoing Problem: Lack of Knowledge: Goal: Ability to [...] Goal: Pain level will decrease Outcome: Ongoing Goals: Clinical Goals for the Shift: VS WNL, pain control and safety. MILL OPERATOR * Plan of Care - Johnnie Flores RN - 10/19/2023 5:10 PM CST Problem: Health Behavior: Goal: Understanding [...] injury in home environment Outcome: Progressing Problem: Activity: Goal: Mobility will [...] Goal: Pain level will decrease Outcome: Progressing Goals: Clinical Goals for the Shift: VS WNL, pain control and safety. Summary: patient was out of bed and walk with a walker with stable gait, pain was under control with prn medication. MILL OPERATOR * Consults, Subsequent - Vero Tolentino MD - 10/19/2023 10:01 AM HOB MILL OPERATOR Images from the original note were not included. Urology Consult Note Subjective Chief Complaint: C/f left obstructing ureteral stone with UTI Requesting provider: Dr. Hargrove Interval History: - POD1 from L URS/LL, stent was placed and PCN was removed. Pain well controlled this AM - Cr 0.97, WBC 16.4 (11.6) The patient's past medical, surgical, were reviewed and noncontributory to this illness/condition except as noted below: The patient's past medical history is notable for: Past Medical History: Diagnosis Date Allergic rhinitis Arthritis OA Cancer (CMS/HCC) (HCC) prostate and melonomia Gastric reflux GERD (gastroesophageal reflux disease) History of melanoma Hypertension Kidney stone Personal history of prostate cancer Pneumonia Seasonal allergies The patient's past surgical history [...] In/Outs: I/O last 3 completed shifts: In: 750 [I.V.:750] Out: 3040 [Urine:3040] No intake/output data recorded. Physical Exam: Vitals: 10/18/23 1500 10/18/23 2130 10/19/23 0500 10/19/23 0755 BP: 131/71 141/71 138/64 126/71 BP Location: Left arm Patient Position: Lying;HOB 30 degrees Pulse: 77 74 76 73 Resp: 16 16 16 18 Temp: 37 ??C (98.6 ??F) 36.6 ??C (97.9 ??F) 36.4 ??C (97.5 ??F) TempSrc: Oral Oral Oral SpO2: 98% 99% 97% Weight: Height: General: In no acute distress Pulmonary: Non-labored breathing Cardiovascular: Well perfused Abdomen: soft, non tender, Non distended : harris in place draining clear yellow urine Neuro: Alert and oriented Psych: Appropriate and cooperative Labs/Imaging: Chem/LFT Lab History Latest Ref Rng & Units 10/13/2023 06:50 10/14/2023 06:30 10/17/2023 22:52 10/18/2023 21:29 Labs-Chem/LFT Sodium 135 - 145 mmol/L 137 136 133 132 Creatinine 0.80 - 1.30 mg/dL 0.82 1.20 0.97 0.93 Bilirubin, total 0.1 - 1.2 mg/dL 0.7 0.5 AST 10 - 50 Units/L 50 49 ALT 7 - 55 Units/L 68 67 Alk phos 40 - 130 Units/L 113 108 CrCl- Actual Body Weight (Cockcroft-Gault) 94 64.3 79.5 82.9 Hematology Lab History Latest Ref Rng & Units 10/13/2023 06:50 10/14/2023 06:30 10/17/2023 22:52 10/18/2023 21:29 Labs - Hematology WBC 3.8 - 9.9 K/cumm 6.2 9.4 11.6 16.4 Total Hb, POC 13.0 - 17.5 g/dL 13.3 11.4 11.7 11.3 Hct 38.9 - 50.3 % 37.0 32.2 33.3 32.8 Plt 150 - 400 K/cumm 143 134 256 286 Neutrophil abs 1.5 - 6.5 K/cumm 5.8 7.4 9.0 13.6 Lymphocytes, abs 0.8 - 3.3 K/cumm 0.2 0.6 1.4 1.4 The following images were personally reviewed by me. Dexa Axial Skeleton Bone Density 1 or 2 Site Narrative: BONE DENSITOMETRY OF THE SPINE AND HIP DATE OF STUDY: 10/18/2023 HISTORY: 73-year-old man with presurgical evaluation for L5/S1 spinal fusion. He is being treated with vitamin D. Evaluate bone mineral density. Additional risk factors for fracture: [Prior smoking]. FINDINGS (SPINE): The bone mineral density of L1-L4 was assessed by dual-energy x-ray absorptiometry. The average bone mineral density within this region is 1.041 gm/sq-cm. This is 0.5 standard deviations above the mean of the average bone mineral density for age- and gender-matched subjects (the Z-score). It is 0.1 standard deviations below the mean peak bone mineral density in young adults (the T-score). FINDINGS (FEMORAL NECK): The bone mineral density of the left femoral neck was assessed by dual-energy x-ray absorptiometry. The average bone mineral density within the femoral neck region is 0.811 gm/sq-cm. This is 0.4 standard deviations above the mean of the average bone mineral density for age- and gender-matched subjects (the Z-score). It is 0.3 standard deviations below the mean peak bone mineral density in young adults (the T-score). FINDINGS (TOTAL HIP): The bone mineral density of the left hip was assessed by dual-energy x-ray absorptiometry. The average bone mineral density within the total hip region is 0.865 gm/sq-cm. This is 0.4 standard deviations below the mean of the average bone mineral density for age- and gender-matched subjects (the Z-score). It is 0.6 standard deviations below the mean peak bone mineral density in young adults (the T-score). SUMMARY OF CURRENT RESULTS: Region BMD T-score Z-score AP Spine (L1-L4) 1.041 -0.1 0.5 Femoral Neck (Left) 0.811 -0.3 0.4 Total Hip (Left) 0.865 -0.6 -0.4 Impression: 1. The bone mineral density of the lumbar spine is normal. 2. The bone mineral density of the left femoral neck is normal. 3. The bone mineral density of the left total hip is normal. 4. Overall, the above findings are normal by WHO criteria. 5. Calculation of fracture risk using the FRAX model is not appropriate in certain settings. It was not performed in this patient because the patient met the following condition(s): normal bone density. General comments regarding interpretation of bone density measurements: A) In children, premenopausal woman and males under age 50 not at increased risk for fractures only Z-scores, not T-scores are used to indicate risk. A Z-score above -2.0 is defined as within the expected range for age and Z-score at or less than -2.0 is below the expected range for age . A Z-score below the expected range for age in a patient with recent fractures and/or chronic corticosteroid treatment is consistent with a diagnosis of osteoporosis. B) In post menopausal women and males over 50, comparison of the measured bone mineral density with the average value in young normal subjects (the T-score ) has been found to be useful in assessing fracture risk. Fracture risk approximately doubles for each 1.0 standard deviation (SD) in individual's hip or spine bone mineral density is below the average value of young normal subjects. The World Health Organization (WHO) has defined T-scores of -1.0 to -2.5 as diagnostic of low bone mass (OSTEOPENIA), and T-scores of -2.5 or lower to be diagnostic of OSTEOPOROSIS, based on the site of lowest bone density. Note that there will be a change in reporting format and reference databases as patients move from the younger population (group A) to the older population (group B) The National Osteoporosis Foundation (www.nof.org) recommends adequate intake of calcium and vitamin D and regular weight-bearing exercise in all patients. They recommend pharmacologic treatment in postmenopausal women and men age 50 and older presenting with any of the followin) Osteoporosis, after appropriate evaluation to exclude secondary causes. 2) A hip or vertebral (clinical or radiographic) fracture, regardless of the bone density. 3) Low bone mass (Osteopenia) and one or more of: other prior fractures, secondary causes associated with high risk of fracture (such as glucocorticoid use or total immobilization), or computed high risk of fracture (10-yr probability of hip fracture >= 3% or a 10-yr probability of any major osteoporosis-related fracture >= 20% based on the [place].-adapted WHO algorithm), available at http://www.shef.ac.uk/FRAX). Dictated by: Gypsy Pelletier M.D. The radiology attending physician has personally reviewed this study, and had reviewed and/or edited this written report and agrees with it. Electronically signed by: Nikki Bella MD, Ph.D [place] Fluoroscopy < 1 Hour The images from this study are not interpreted by Radiology. Please refer to the physician's procedure / OR operative note. Assessment Hira Evans is a 73 y.o. male w/ a PMH of prostate cancer s/p RALPand severe LLE lumbar radiculopathy 2/2 disc herniation with a planned spinal surgery on 10/16, presented today for preoperative workup and was sent to ED with c/f infectious process. Found to have obstructing ureteral stonewith mild hydronephrosis and UCx growing E.coli. IR placed a L PCN. Urology took patient today to OR for L URS/LL. During the operation we followed the area in the left proximal ureter that appeared slightly strictured. Given the risk of obstruction and subsequent infection, the decision was made to leave a left ureteral stent in place that should remain for 3 or 4 weeks. At that point, he will be brought back to the operating room for a second-look URS. His left ureteral stent can remain in place for up to 3 months, so we will coordinate with orthopedic surgery regarding optimal timing for this procedure given his upcoming surgery. Plan - Continue antibiotics through spine surgery; OK for culture specific PO antibiotics - Continue stent x3-4 weeks; Urology will schedule patient for second look URS - Harris per primary team, can be discharged with catheter if that is family preference - Will follow peripherally Thank you for allowing us to participate in the care of this patient. For any questions or concerns, please page Urology through the punch operator. Vero Tolentino MD 10/19/2023 Cosigned by Fredrick Mcneil MD at 10/19/2023 10:25 AM HOB MILL OPERATOR MILL OPERATOR MILL OPERATOR * Plan of Care - Brandyn Cain RN - 10/19/2023 12:49 AM CST VSS. No falls. Pain was well controlled with PRN pain meds. Pt remained continent of bowel, has a foely. Pt slept through the night. Pt was amenable to care. Goals: Clinical Goals for the Shift: Strict I&O, VSS, surgery today,pain control Problem: Health Behavior: Goal: Understanding of discharge needs will improve Outcome: Ongoing Problem: Lack of Knowledge: Goal: Ability to state ways to decrease the risk of falls will improve Outcome: Ongoing Problem: Safety: Goal: Will remain free from falls Outcome: Ongoing Goal: Will remain free from injury from falls Outcome: Ongoing Goal: Will remain free from falls and injury in home environment Outcome: Ongoing Problem: Activity: Goal: Mobility will improve Outcome: Ongoing Problem: Lack of Knowledge: Goal: Understanding of ways to prevent future skin breakdown will improve Outcome: Ongoing Goal: Ability to identify appropriate dietary choices will improve Outcome: Ongoing Problem: Nutritional: Goal: Dietary intake will improve Outcome: Ongoing Goal: Ability to maintain a balanced intake and output will improve Outcome: Ongoing Problem: Skin Integrity: Goal: Risk for impaired skin integrity will decrease Outcome: Ongoing Goal: Ability to demonstrate warm and dry skin will improve Outcome: Ongoing Goal: Circulation will improve to fullest extent possible Outcome: Ongoing Problem: Lack of Knowledge: Goal: Ability to [...] Goal: Pain level will decrease Outcome: Ongoing MILL OPERATOR * Plan of Care - Frieda Cai RN - 10/18/2023 5:46 PM CST Goals: Clinical Goals for the Shift: Strict I&O, VSS, surgery today,pain control Summary: Problem: Health Behavior: Goal: Understanding of [...] injury in home environment Outcome: Progressing Problem: Activity: Goal: Mobility will [...] unmanageable or unbearable will improve Outcome: Progressing MILL OPERATOR * Plan of Care - Torey Mckenna RN - 10/18/2023 3:26 PM CST Per Medical Chart/Rounds/DCAM: IDR ADD: TBD Plan & referrals made/in place: [facility] [place] [place] Patient went to OR with urology today. Still has plans for DEXA scan and surgery on 10/23. Support following discharge: , daughter Transportation: TBD Patient's Identified Problem/Goal Problem: Ensure acute medical needs are met and that patient has a safe discharge plan. Goal: Secure a discharge plan that patient/family are agreeable with and ensure patient has continuum of care. Patient and/or family are agreeable with plan. geographic information systems manager will continue to follow and assist with discharge planning as needed. If any further discharge needs arise, please contact the covering binder caser. MILL OPERATOR * Consults, Subsequent - Vero Tolentino MD - 10/18/2023 3:15 PM HOB MILL OPERATOR Images from the original note were not included. Urology Consult Note Subjective Chief Complaint: C/f left obstructing ureteral stone with UTI Requesting provider: Dr. Hargrove Interval History: - POD3 PCN placement with IR, went to OR with Urology today for L URS/LL, stent was placed and PCN was removed - Went to DEXA scan after procedure The patient's past medical, surgical, were reviewed and noncontributory to this illness/condition except as noted below: The patient's past medical history is notable for: Past Medical History: Diagnosis Date Allergic rhinitis Arthritis OA Cancer (CMS/HCC) (HCC) prostate and melonomia Gastric reflux GERD (gastroesophageal reflux disease) History of melanoma Hypertension Kidney stone Personal history of prostate cancer Pneumonia Seasonal allergies The patient's past surgical history [...] last 3 completed shifts: In: - Out: 3805 [Urine:3805] I/O this shift: In: 750 [I.V.:750] Out: 640 [Urine:640] Physical Exam: Vitals: 10/18/23 1140 10/18/23 1303 10/18/23 1318 10/18/23 1330 BP: 150/62 131/78 135/64 BP Location: Patient Position: Pulse: 90 75 70 74 Resp: 18 18 16 16 Temp: 36.5 ??C (97.7 ??F) 36.6 ??C (97.9 ??F) TempSrc: Oral SpO2: 93% 96% 97% 97% Weight: Height: General: In no acute distress Pulmonary: Non-labored breathing Cardiovascular: Well perfused Abdomen: soft, non tender, Non distended : harris in place draining clear pink urine Neuro: Alert and oriented Psych: Appropriate and cooperative Labs/Imaging: Chem/LFT Lab History Latest Ref Rng & Units 10/12/2023 19:50 10/13/2023 06:50 10/14/2023 06:30 10/17/2023 22:52 Labs-Chem/LFT Sodium 135 - 145 mmol/L 133 137 136 133 Creatinine 0.80 - 1.30 mg/dL 0.99 0.82 1.20 0.97 Bilirubin, total 0.1 - 1.2 mg/dL 0.7 0.5 AST 10 - 50 Units/L 50 49 ALT 7 - 55 Units/L 68 67 Alk phos 40 - 130 Units/L 113 108 CrCl- Actual Body Weight (Cockcroft-Gault) 77.9 94 64.3 79.5 Hematology Lab History Latest Ref Rng & Units 10/12/2023 19:50 10/13/2023 06:50 10/14/2023 06:30 10/17/2023 22:52 Labs - Hematology WBC 3.8 - 9.9 K/cumm 8.1 6.2 9.4 11.6 Total Hb, POC 13.0 - 17.5 g/dL 13.7 13.3 11.4 11.7 Hct 38.9 - 50.3 % 38.5 37.0 32.2 33.3 Plt 150 - 400 K/cumm 155 143 134 256 Neutrophil abs 1.5 - 6.5 K/cumm 6.4 5.8 7.4 9.0 Lymphocytes, abs 0.8 - 3.3 K/cumm 0.7 0.2 0.6 1.4 The following images were personally reviewed by me. Dexa Axial Skeleton Bone Density 1 or 2 Site Narrative: BONE DENSITOMETRY OF THE SPINE AND HIP DATE OF STUDY: 10/18/2023 HISTORY: 73-year-old man with presurgical evaluation for L5/S1 spinal fusion. He is being treated with vitamin D. Evaluate bone mineral density. Additional risk factors for fracture: [Prior smoking]. FINDINGS (SPINE): The bone mineral density of L1-L4 was assessed by dual-energy x-ray absorptiometry. The average bone mineral density within this region is 1.041 gm/sq-cm. This is 0.5 standard deviations above the mean of the average bone mineral density for age- and gender-matched subjects (the Z-score). It is 0.1 standard deviations below the mean peak bone mineral density in young adults (the T-score). FINDINGS (FEMORAL NECK): The bone mineral density of the left femoral neck was assessed by dual-energy x-ray absorptiometry. The average bone mineral density within the femoral neck region is 0.811 gm/sq-cm. This is 0.4 standard deviations above the mean of the average bone mineral density for age- and gender-matched subjects (the Z-score). It is 0.3 standard deviations below the mean peak bone mineral density in young adults (the T-score). FINDINGS (TOTAL HIP): The bone mineral density of the left hip was assessed by dual-energy x-ray absorptiometry. The average bone mineral density within the total hip region is 0.865 gm/sq-cm. This is 0.4 standard deviations below the mean of the average bone mineral density for age- and gender-matched subjects (the Z-score). It is 0.6 standard deviations below the mean peak bone mineral density in young adults (the T-score). SUMMARY OF CURRENT RESULTS: Region BMD T-score Z-score AP Spine (L1-L4) 1.041 -0.1 0.5 Femoral Neck (Left) 0.811 -0.3 0.4 Total Hip (Left) 0.865 -0.6 -0.4 Impression: 1. The bone mineral density of the lumbar spine is normal. 2. The bone mineral density of the left femoral neck is normal. 3. The bone mineral density of the left total hip is normal. 4. Overall, the above findings are normal by WHO criteria. 5. Calculation of fracture risk using the FRAX model is not appropriate in certain settings. It was not performed in this patient because the patient met the following condition(s): normal bone density. General comments regarding interpretation of bone density measurements: A) In children, premenopausal woman and males under age 50 not at increased risk for fractures only Z-scores, not T-scores are used to indicate risk. A Z-score above -2.0 is defined as within the expected range for age and Z-score at or less than -2.0 is below the expected range for age . A Z-score below the expected range for age in a patient with recent fractures and/or chronic corticosteroid treatment is consistent with a diagnosis of osteoporosis. B) In post menopausal women and males over 50, comparison of the measured bone mineral density with the average value in young normal subjects (the T-score ) has been found to be useful in assessing fracture risk. Fracture risk approximately doubles for each 1.0 standard deviation (SD) in individual's hip or spine bone mineral density is below the average value of young normal subjects. The World Health Organization (WHO) has defined T-scores of -1.0 to -2.5 as diagnostic of low bone mass (OSTEOPENIA), and T-scores of -2.5 or lower to be diagnostic of OSTEOPOROSIS, based on the site of lowest bone density. Note that there will be a change in reporting format and reference databases as patients move from the younger population (group A) to the older population (group B) The National Osteoporosis Foundation (www.nof.org) recommends adequate intake of calcium and vitamin D and regular weight-bearing exercise in all patients. They recommend pharmacologic treatment in postmenopausal women and men age 50 and older presenting with any of the followin) Osteoporosis, after appropriate evaluation to exclude secondary causes. 2) A hip or vertebral (clinical or radiographic) fracture, regardless of the bone density. 3) Low bone mass (Osteopenia) and one or more of: other prior fractures, secondary causes associated with high risk of fracture (such as glucocorticoid use or total immobilization), or computed high risk of fracture (10-yr probability of hip fracture >= 3% or a 10-yr probability of any major osteoporosis-related fracture >= 20% based on the [place].-adapted WHO algorithm), available at http://www.shef.ac.uk/FRAX). Dictated by: Gypsy Pelletier M.D. The radiology attending physician has personally reviewed this study, and had reviewed and/or edited this written report and agrees with it. Electronically signed by: Nikki Bella MD, Ph.D [place] Fluoroscopy < 1 Hour The images from this study are not interpreted by Radiology. Please refer to the physician's procedure / OR operative note. Assessment Hira Evans is a 73 y.o. male w/ a PMH of prostate cancer s/p RALPand severe LLE lumbar radiculopathy 2/2 disc herniation with a planned spinal surgery on 10/16, presented today for preoperative workup and was sent to ED with c/f infectious process. Found to have obstructing ureteral stonewith mild hydronephrosis and UCx growing E.coli. IR placed a L PCN. Urology took patient today to OR for L URS/LL. During the operation we followed the area in the left proximal ureter that appeared slightly strictured. Given the risk of obstruction and subsequent infection, the decision was made to leave a left ureteral stent in place that should remain for 3 or 4 weeks. At that point, he will be brought back to the operating room for a second-look URS. His left ureteral stent can remain in place for up to 3 months, so we will coordinate with orthopedic surgery regarding optimal timing for this procedure given his upcoming surgery. Plan - Continue antibiotics through spine surgery - Continue stent x3-4 weeks; Urology will schedule patient for second look URS - Harris per primary team, can be discharged with catheter if that is family preference - Will continue to follow. Thank you for allowing us to participate in the care of this patient. For any questions or concerns, please page Urology through the punch operator. Vero Tolentino MD 10/18/2023 Cosigned by Gabriel Bennett MD at 10/18/2023 6:54 PM HOB MILL OPERATOR MILL OPERATOR MILL OPERATOR MILL OPERATOR Associated attestation - Gabriel Bennett MD - 10/18/2023 6:54 PM HOB MILL OPERATOR I have seen and examined the patient on 10/18/23. I agree with the findings and plan of care as documented in the resident's/fellow's note. Plan for OR today. Please see op note for additional details re: ongoing urologic care plan. * Perioperative Nursing Note - Kasey Blakely, RN - 10/18/2023 11:44 AM CST Patient seen by Dr. Lak. Francis to return back to room to get PET scan done [facility]. MILL OPERATOR * Plan of Care - Rosi Fernandes MD - 10/18/2023 11:19 AM HOB MILL OPERATOR Mr. Evans is a 73 yo male s/p cystoscopy, left URS, lithotripsy, left ureteral stent placement, left nephrostomy tube removal. During the operation we followed the area in the left proximal ureter that appeared slightly strictured. Given the risk of obstruction and subsequent infection, the decision was made to leave at leftureteral stent in place that she remain for 3 or 4 weeks. At that point, he will be brought back tothe operating room for a second-look URS. His left ureteral stent can remain in place for up to 3 months, so we will coordinate with orthopedic surgery regarding optimal timing for this procedure given his upcoming surgery. Plan: - Stent x3-4 weeks and then second look URS. - Harris per primary team. - Will continue to follow. Thank you for allowing us to participate in this patient's care. To reach the urology consult resident from 6:00 to 18:00 (Sunday-Sunday), please call [phone].If you want to contact Urology consults after hours (18:00 to 6:00) and over the weekend, please call the punch operator. Cosigned by Gabriel Bennett MD at 10/18/2023 3:59 PM HOB MILL OPERATOR MILL OPERATOR MILL OPERATOR * Op Note - Gabriel Bennett MD - 10/18/2023 8:45 AM CST OPERATIVE REPORT SURGEON Gabriel Bennett M.D. AFTER SCHOOL PROGRAM TEACHER Vero Tolentino MD ANESTHESIA General. PREOPERATIVE DIAGNOSIS Left ureteral stone POSTOPERATIVE DIAGNOSIS Same NAME OF OPERATION 1. Cystoscopy 2. Left ureteroscopy 3. Laser lithotripsy 4. Left stent placement 5. Left nephrostomy tube removal INDICATION FOR PROCEDURE Hira Evans is a 73 y.o. male with history of impacted left ureteral stone (unable to place stent previously) s/p PCN. Following discussion of risks, benefits, and alternatives of procedure patient agreed to proceed. OPERATIVE FINDINGS Impacted mid/proximal ureteral stone. Additional renal stone. DESCRIPTION OF PROCEDURE Informed consent was obtained. Patient brought to the operating room. IV antibiotics were given. Bilateral sequential compression devices were placed. Following smooth induction of general anesthesia, patient was placed in dorsal lithotomy position. They were prepped and draped in usual standard sterile fashion. A time-out was then performed to ensure proper patient and proper procedure. A 22-Danish rigid cystoscope was introduced into the urethra and bladder. The urothelium was normal. Bilateral ureteral orifices were identified in normal orthotopic location. The left ureter was cannulated with a wire. The ureteroscope was introduced over the wire and into the collecting system. In doing so, we pushed the impacted ureteral stone up into the renal pelvis. With both stones in the renal pelvis, laser lithotripsy was performed with the laser on dusting settings. We irrigated the nephrostomy tube several times to clear as much stone fragments out of the collecting system. At the conclusion of the procedure there were no fragments >1 mm in the renal pelvis. The ureteroscope wa s withdrawn. A 6 Fr x 28 cm stent was placed over a wire, confirmed in good location proximally with fluoroscopy and distally with direct vision. The nephrostomy was then removed under fluoroscopy. The patient was awoken and taken to postoperative anesthesia recovery. The stent will remain in place for 3-4 weeks given the area of stricture. We will discuss with the orthopaedic team re: best approach for timing of his spine surgery. For the patient to be safely stone and tube free, he likely requires a repeat ureteroscopy in 3-4 weeks time, followed up a stent period of 1-2 weeks. SPECIMENS REMOVED None ESTIMATED BLOOD LOSS Minimal. INTRAOPERATIVE FLUIDS Per anesthesia report SPONGE, INSTRUMENT AND NEEDLE COUNT Not performed as this is an endoscopic case. CONDITION ON DISCHARGE Stable to PACU. ATTESTATION OF PRESENCE I was present and participated in the entire procedure. MILL OPERATOR * Plan of Care - Christal García RN - 10/18/2023 6:48 AM CST Goals: Clinical Goals for the Shift: Strict I/O; VSS; Safety and comfort Summary: VSS, flushed nephrostomy tube with 10 cc saline every 8 hours. NPO post midnight instructed. Due pain medicine given. No significant event noted. Problem: Health Behavior: Goal: Understanding of discharge [...] injury in home environment Outcome: Progressing Problem: Activity: Goal: Mobility will [...] to fullest extent possible Outcome: Progressing Problem: Medication: Goal: Satisfaction with pain management regimen will improve Outcome: Progressing Problem: Sensory: Goal: Ability to identify factors that increase the pain will improve Outcome: Progressing Goal: Pain level will decrease Outcome: Progressing MILL OPERATOR * Plan of Care - Lisa Rudolph RN - 10/17/2023 5:59 PM CST Goals: Clinical Goals for the Shift: Strict I/O; VSS; Safety and comfort Summary: Patient oriented. Nephrostomy dressing clean dry and intact, nephrostomy flushed 10mL per order, nephrostomy draining pink tinged output. Patient pain managed with oral PRN pain medication. Harris draining yellow/camilo urine with small amount of sediment. Problem: Health Behavior: Goal: Understanding of discharge [...] injury in home environment Outcome: Progressing Problem: Activity: Goal: Mobility will [...] unmanageable or unbearable will improve Outcome: Progressing MILL OPERATOR * Consults, Subsequent - Vero Tolentino MD - 10/17/2023 11:41 AM HOB MILL OPERATOR Images from the original note were not included. Urology Consult Note Subjective Chief Complaint: C/f left obstructing ureteral stone with UTI Requesting provider: Dr. Hargrove Interval History: - POD2 PCN placement with IR - NAEO, AF, VSS - No complaints this AM The patient's past medical, surgical, were reviewed and noncontributory to this illness/condition except as noted below: The patient's past medical history is notable for: Past Medical History: Diagnosis Date Allergic rhinitis Arthritis OA Cancer (CMS/HCC) (HCC) prostate and melonomia Gastric reflux GERD (gastroesophageal reflux disease) History of melanoma Hypertension Kidney stone Personal history of prostate cancer Pneumonia Seasonal allergies The patient's past surgical history [...] In/Outs: I/O last 3 completed shifts: In: 680 [P.O.:680] Out: 4320 [Urine:4320] I/O this shift: In: - Out: 400 [Urine:400] Physical Exam: Vitals: 10/16/23 1520 10/16/23 2115 10/17/23 0520 10/17/23 0831 BP: 126/77 132/72 143/72 134/72 BP Location: Left arm Right arm Right arm Right arm Patient Position: Lying;HOB 30 degrees Lying;HOB 30 degrees Lying;HOB 30 degrees Sitting Pulse: 60 64 63 63 Resp: 18 16 16 16 Temp: 37.1 ??C (98.8 ??F) 36.6 ??C (97.8 ??F) 37.1 ??C (98.7 ??F) 36.5 ??C (97.7 ??F) TempSrc: Oral Oral Oral Oral SpO2: 98% 98% 97% 99% Weight: Height: General: In no acute distress Pulmonary: Non-labored breathing Cardiovascular: Well perfused Abdomen: soft, non tender, Non distended : voiding clear yellow urine spontaneously Neuro: Alert and oriented Psych: Appropriate and cooperative Labs/Imaging: Chem/LFT Lab History Latest Ref Rng & Units 10/11/2023 12:18 10/12/2023 19:50 10/13/2023 06:50 10/14/2023 06:30 Labs-Chem/LFT Sodium 135 - 145 mmol/L 132 133 137 136 Creatinine 0.80 - 1.30 mg/dL 1.08 0.99 0.82 1.20 Bilirubin, total 0.1 - 1.2 mg/dL 1.1 0.7 0.5 AST 10 - 50 Units/L 24 50 49 ALT 7 - 55 Units/L 20 68 67 Alk phos 40 - 130 Units/L 120 113 108 CrCl- Actual Body Weight (Cockcroft-Gault) 75.7 77.9 94 64.3 Hematology Lab History Latest Ref Rng & Units 10/11/2023 12:18 10/12/2023 19:50 10/13/2023 06:50 10/14/2023 06:30 Labs - Hematology WBC 3.8 - 9.9 K/cumm 15.2 8.1 6.2 9.4 Total Hb, POC 13.0 - 17.5 g/dL 14.9 13.7 13.3 11.4 Hct 38.9 - 50.3 % 42.6 38.5 37.0 32.2 Plt 150 - 400 K/cumm 148 155 143 134 Neutrophil abs 1.5 - 6.5 K/cumm 12.7 6.4 5.8 7.4 Lymphocytes, abs 0.8 - 3.3 K/cumm 0.8 0.7 0.2 0.6 The following images were personally reviewed by me. CT Urogram WO 3D Narrative: EXAMINATION: CT UROGRAPHY WITH AND WITHOUT CONTRAST HISTORY: Hydronephrosis, perirenal hematoma. Imaging for follow-up. TECHNIQUE: CT urography of the abdomen and pelvis was performed prior to and following the uneventful intravenous administration of 120 mL Optiray 350 in the combined nephrographic and excretory phases according to a split bolus protocol. COMPARISON: Ultrasound dated 10/14/2023 FINDINGS: UROGRAPHIC FINDINGS: Right Kidney: The right kidney is normal size. A subcentimeter hypoattenuating lesion in the lateral interpolar region is too small to characterize but likely represents a cyst. A 3 millimeter nonobstructing calculus is present in the upper pole. There is no hydronephrosis. The ureter is normal. The urothelium appears normal. Left Kidney: The left kidney is normal size. There is redemonstration of a perinephric hematoma measuring 13 mm in thickness, unchanged. The hemorrhage extends along the left retroperitoneal fascial planes. A percutaneous nephrostomy courses through a posterior interpolar calyx and is looped within the proximal ureter. The adjacent ureter demonstrates wall thickening, likely reactive. A small amount of extraluminal gas remains present. A 6 x 2 mm previously obstructing ureteral stone is present now displaced superiorly within the dilated upper ureter. A stone previously identified in the inferior pole has displaced into the proximal ureter. An irregular filling defect surrounding the catheter pigtail likely represents blood clot. The proximal ureter is dilated with transition point at the site of prior obstruction with marked narrowing and tortuosity which may represent spasm or a pre-existing stricture predisposing the patient to stone formation and obstruction. The renal parenchyma demonstrates wedge-shaped areas of hypoattenuation which may represent infarcts, pyelonephritis, or interval progression of obstructive nephropathy, poorly assessed due to phase of contrast. The distal ureter is normal. Bladder: There is no wall thickening. The urinary bladder is distended despite Harris catheter in place, likely due to clamping for imaging. NON-UROGRAPHIC FINDINGS: Lower chest: Bilateral pleural effusions have increased study. Hepatobiliary: Multiple cysts are redemonstrated in the liver. The right hemiliver is atrophic. The left hemiliver hypertrophy. The gallbladder is normal. The bile ducts are non-dilated. Pancreas: Normal. Spleen: Normal. Adrenals: Normal. Gastrointestinal: The stomach is unremarkable. There are no dilated loops of small or large bowel. Vasculature: Aorta and branch vessels are atherosclerotic. Pelvis: Postoperative changes of prostatectomy are redemonstrated. Bones/Soft Tissues: No suspicious lytic or blastic bone lesion. Degenerative changes are noted in the spine. No suspicious soft tissue lesion identified. Impression: 1. Postprocedural changes of percutaneous nephrostomy tube placement with perinephric hematoma, which is similar to the prior ultrasound. Blood products extend along the left retroperitoneal fascial planes. 2. The obstructing left mid ureteral stone has displaced superiorly within the upper ureter. A stone previously identified in the left inferior renal pole has displaced into the proximal left ureter. A small amount of blood clot is present in the proximal left ureter. 3. Interval improvement in left hydronephrosis with persistent transition point at the left mid-ureter, with associated focal wall thickening. This may represent inflammatory thickening/spasm related to prior impacted stone versus pre-existing stricture predisposing the patient to stone formation. Dictated by: Dmitry Thompson MD The radiology attending physician has personally reviewed this study, and had reviewed and/or edited this written report and agrees with it. Electronically signed by: Eric Irene M.D. Assessment Hira Evans is a 73 y.o. male w/ a PMH of prostate cancer s/p RALPand severe LLE lumbar radiculopathy 2/2 disc herniation with a planned spinal surgery on 10/16, presented today for preoperative workup and was sent to ED with c/f infectious process. Found to have obstructing ureteral stonewith mild hydronephrosis and UCx growing E.coli. Yesterday we attempted to take patient to OR for L ureteral stent placement however procedure had to be aborted after we were unable to navigate wire past site of impaction despite multiple attempts.Went to IR suite this AM for L PCN however due to non-dilated calyces and lower pole renal stone, were unable to pass wire into kidney so procedure was aborted. After aggressive hydration and increase in hydronephrosis on ultrasound, IR attempted PCN placement again and were successful. Had discussion with orthopedic surgery this AM regarding best plan moving forward with this patient. Will plan for definitive stone treatment tomorrow and will likely need to leave ureteral stent in place, will plan to pull stent day prior orthopedic surgery intervention Sunday. Plan - Continue antibiotics through surgery - NPO @ [facility] for stone procedure tomorrow - Urology will continue to follow Thank you for allowing us to participate in the care of this patient. For any questions or concerns, please page Urology through the punch operator. Vero Tolentino MD 10/17/2023 Cosigned by Maris Montilla MD at 10/18/2023 9:04 AM HOB MILL OPERATOR MILL OPERATOR MILL OPERATOR * Plan of Care - Stacy Tim RN - 10/17/2023 2:14 AM CST Problem: Activity: Goal: Mobility will improve Outcome: Progressing Problem: Nutritional: Goal: Dietary intake will improve Outcome: Progressing Goal: Ability to maintain a balanced intake and output will improve Outcome: Progressing Problem: Lack of Knowledge: Goal: Ability to develop a pain control plan will improve Outcome: Progressing Problem: Sensory: Goal: Ability to identify factors that increase the pain will improve Outcome: Progressing Goal: Pain level will decrease Outcome: Progressing Goals: Clinical Goals for the Shift: monitor vitals. give meds per order. pain management. keep pt free from injury and comfortable MILL OPERATOR * Plan of Care - Rebecca Lozano RN - 10/16/2023 2:33 PM CST Goals: Clinical Goals for the Shift: monitor vitals. give meds per order. pain management. keep pt free from injury and comfortable Summary: vitals remained stable. Gave meds per order. Pain managed with dilaudid q4. Pt offered chair but refused at this time. Nephrostomy and harris clamped for CT procedure. Unclamped before arriving back to floor. Nephrostomy flushed with sterile saline at 1000. Pt remained free from falls and comfortable throughout the shift. Problem: Health Behavior: Goal: Understanding of discharge [...] injury in home environment Outcome: Progressing Problem: Activity: Goal: Mobility will improve Outcome: Progressing MILL OPERATOR * Plan of Care - Dionne Palafox RN - 10/15/2023 10:25 PM CST Problem: Health Behavior: Goal: Understanding of discharge needs will improve Outcome: Progressing Problem: Lack of Knowledge: Goal: Ability to state ways to decrease the risk of falls will improve Outcome: Progressing Problem: Safety: Goal: Will remain free from falls Outcome: Progressing Problem: Lack of Knowledge: Goal: Understanding of ways to prevent future skin breakdown will improve Outcome: Progressing Problem: Lack of Knowledge: Goal: Ability to develop a pain control plan will improve Outcome: Progressing Problem: Activity: Goal: Mobility will improve Outcome: Ongoing Goals: Clinical Goals for the Shift: monitor vital signs and urine output, flush nephrostomy tube, promotecomfort and safety, manage pain Summary: Patient A&Ox4 overnight, c/o back pain radiating down L leg. Harris and nephrostomy tube draining red urine. Nephrostomy tube flushed and dressing changed. PRN pain medications given withpartial relief. Vital signs stable. MILL OPERATOR * Plan of Care - Lana Turcios RN - 10/15/2023 11:06 AM CST Problem: Health Behavior: Goal: Understanding [...] injury in home environment Outcome: Progressing Problem: Activity: Goal: Mobility will [...] Goal: Pain level will decrease Outcome: Progressing Goals: Clinical Goals for the Shift: VSS, pain management, comfort and safety Summary: Flush Nephrostomy tube q 8 hours, pain management, encourage activity MILL OPERATOR * Assessment & Plan Note - Jimenez Henao MD - 10/15/2023 9:06 AM HOB MILL OPERATOR Associated Problem(s): Left perinephric collection, 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 Likely post procedure complication. Urology following - CT urogram on 10/16 notes presence of L perinephric hematoma - Continue to trend white count, renal function and fever curve MILL OPERATOR MILL OPERATOR MILL OPERATOR * Consults, Subsequent - Vero Tolentino MD - 10/15/2023 6:38 AM HOB MILL OPERATOR Images from the original note were not included. Urology Consult Note Subjective Chief Complaint: C/f left obstructing ureteral stone with UTI Requesting provider: Dr. Hargrove Interval History: - POD1 PCN placement with IR - NAEO, AF, VSS - No complaints this AM The patient's past medical, surgical, were reviewed and noncontributory to this illness/condition except as noted below: The patient's past medical history is notable for: Past Medical History: Diagnosis Date Allergic rhinitis Arthritis OA Cancer (CMS/HCC) (HCC) prostate and melonomia Gastric reflux GERD (gastroesophageal reflux disease) History of melanoma Hypertension Kidney stone Personal history of prostate cancer Pneumonia Seasonal allergies The patient's past surgical history is notable for: Past Surgical History: Procedure Laterality Date FL UPPER GI AIR CONTRAST W KUB Left 09/21/2023 JOINT REPLACEMENT Right 2013 right knee replacement MELANOMA RESECTION Right 2005 right flank PROSTATECTOMY 2009 REPLACEMENT TOTAL KNEE Left 10/17/2021 REVISION TOTAL KNEE ARTHROPLASTY Right 09/30/2019 VASECTOMY 30 years ago Review of systems negative other than what is stated in the HPI. Objective In/Outs: I/O last 3 completed shifts: In: 1120 [P.O.:700; I.V.:400; IV Piggyback:20] Out: 1600 [Urine:1600] No intake/output data recorded. Physical Exam: Vitals: 10/13/23 1122 10/13/23 1558 10/13/23200410/14/23 0310 BP: 131/75 138/86 135/88 132/79 BP Location: Right arm Right arm Patient Position: HOB 30 degrees HOB 30 degrees Pulse: 103 93 81 81 Resp: 18 20 18 17 Temp: 36.8 ??C (98.2 ??F) 36.8 ??C (98.2 ??F) TempSrc: Oral Oral SpO2: 95% 96% 99% 99% Weight: Height: General: In no acute distress Pulmonary: Non-labored breathing Cardiovascular: Well perfused Abdomen: soft, non tender, Non distended : voiding clear yellow urine spontaneously Neuro: Alert and oriented Psych: Appropriate and cooperative Labs/Imaging: Chem/LFT Lab History Latest Ref Rng & Units 10/11/2023 12:18 10/12/2023 19:50 10/13/2023 06:50 10/14/2023 06:30 Labs-Chem/LFT Sodium 135 - 145 mmol/L 132 133 137 136 Creatinine 0.80 - 1.30 mg/dL 1.08 0.99 0.82 1.20 Bilirubin, total 0.1 - 1.2 mg/dL 1.1 0.7 0.5 AST 10 - 50 Units/L 24 50 49 ALT 7 - 55 Units/L 20 68 67 Alk phos 40 - 130 Units/L 120 113 108 CrCl- Actual Body Weight (Cockcroft-Gault) 75.7 77.9 94 64.3 Hematology Lab History Latest Ref Rng & Units 10/11/2023 12:18 10/12/2023 19:50 10/13/2023 06:50 10/14/2023 06:30 Labs - Hematology WBC 3.8 - 9.9 K/cumm 15.2 8.1 6.2 9.4 Total Hb, POC 13.0 - 17.5 g/dL 14.9 13.7 13.3 11.4 Hct 38.9 - 50.3 % 42.6 38.5 37.0 32.2 Plt 150 - 400 K/cumm 148 155 143 134 Neutrophil abs 1.5 - 6.5 K/cumm 12.7 6.4 5.8 7.4 Lymphocytes, abs 0.8 - 3.3 K/cumm 0.8 0.7 0.2 0.6 The following images were personally reviewed by me. FL Fluoroscopy < 1 Hour Narrative: EXAMINATION: FL FLUOROSCOPY < 1 HOUR HISTORY/INDICATION: 73-year-old man with incidentally discovered UTI and obstructing left ureteral stone. CT demonstrates mild hydronephrosis. Urology was unable to pass a stent pass the obstruction. He presents for left PCN placement. ATTENDING PRESENCE: Rg Mar M.D., the attending radiologist was present from [...] was obtained. Prior to beginning the procedure, [place] Protocol was performed to confirm the patient's [...] was used to achieve local anesthesia. A 22-gauge Chiba needle was then used to access the left renal collecting system under real-time ultrasound guidance with appropriate needle tip positioning documented by the aspiration of urine and by fluoroscopy following the injection of contrast. Limited contrast injection demonstrated no hydronephrosis and moderate hydroureter. The lower posterior calyx below the 12th rib was accessed using an 18-gauge needle with appropriate needle tip positioning documented by fluoroscopy. However a guidewire could not be passed into the collecting system. Then using fluoroscopic guidance and using a calcified stone s a fluoroscopic landmark, a site was selected on the skin for percutaneous needle entry into the posterior lower calyx. This attempt was also unsuccessful and resulted in displacement of the non-obstructing calcified stone into the collecting system. A stab incision was made and an 18-gauge trocar needle was advanced into the posterior midpole renal calyx under direct fluoroscopic observation. Contrast was injected but could not be refluxed back into the renal pelvis. ESTIMATED BLOOD LOSS: Minimal. CONDITION: Stable DISCHARGED TO: Patient care division. FINDINGS: No left hydronephrosis and moderate left hydroureter. Impression: Unsuccessful attempt at left nephrostomy placement in this patient with a nondilated system. Dictated by: Ana Alfaro M.D. MRI Spine Total Complete W WO Contrast Narrative: EXAMINATION: 1. Magnetic resonance imaging (MRI) of the cervical spine without and with contrast 2. Magnetic resonance imaging (MRI) of the thoracic spine without and with contrast 3. Magnetic resonance imaging (MRI) of the lumbar spine without and with contrast HISTORY: Myelopathy, acute TECHNIQUE: Multiplanar multi-weighted MRI of the cervical spine was performed without and with intravenous contrast using the standard protocol. Multiplanar multi-weighted MRI of the thoracic was performed without and with intravenous contrast using the standard protocol. Multiplanar multi-weighted MRI of the lumbar spine was performed without and with intravenous contrast using the standard protocol. Contrast information: 16 mL Gadoterate Meglumine COMPARISON: MR lumbar spine 10/01/2023, 08/30/2023 FINDINGS: CERVICAL SPINE: There is exaggerated cervical kyphosis. There are mixed Modic type I and type II changes throughout the cervical spine. No acute fracture is identified. The craniocervical junction is normal. The visualized portions of the skull base and the posterior fossa are normal. The spinal cord demonstrates normal signal intensity on all sequences. No soft tissue abnormality is identified. Normal signal voids are present in the vertebral arteries. C2-C3: Mild disc height loss. There is mild bilateral facet arthropathy. There is no uncovertebral joint disease. There is no neuroforaminal stenosis. There is no spinal canal stenosis. C3-C4: Mild diffuse disc bulge. There is mild to moderate bilateral facet arthropathy. There is mild bilateral uncovertebral joint disease. There is mild bilateral neuroforaminal stenosis. There is no spinal canal stenosis. C4-C5: Diffuse disc bulge and ligamentum flavum infolding. There is mild bilateral facet arthropathy. There is mild bilateral uncovertebral joint disease. There is moderate right and severe left neuroforaminal stenosis. There is no spinal canal stenosis. C5-C6: Diffuse disc bulge. There is mild right and moderate left facet arthropathy. There is mild bilateral uncovertebral joint disease. There is mild bilateral neuroforaminal stenosis. There is no spinal canal stenosis. C6-C7: Diffuse disc height loss. There is mild right and moderate left facet arthropathy. There is mild bilateral uncovertebral joint disease. There is mild bilateral neuroforaminal stenosis. There is no spinal canal stenosis. C7-T1: Disc height loss. There is mild bilateral facet arthropathy. There is mild bilateral uncovertebral joint disease. There is no neuroforaminal stenosis. There is no spinal canal stenosis. THORACIC SPINE: The alignment of the thoracic spine is normal. Heterogeneous bone marrow signal throughout. There are no compression fractures. There is a prominent central canal. There flattening of the dorsal cord at T4-T5. Limited views of the chest and abdomen show no soft tissue abnormality. The aorta is normal. There are small disc protrusions at T7-T8 and T9-T10. There is no facet arthropathy. There is moderate neuroforaminal stenosis at T10. There is no spinal canal stenosis. LUMBAR SPINE: The alignment of the lumbar spine is normal. There is heterogeneous bone marrow signal throughout. There are no compression fractures. The conus medullaris terminates at the level of L1-L2. The distal spinal cord signal intensity is normal. Intervertebral disks have normal height and signal intensity. Redemonstrated moderate left hydronephrosis. The aorta is normal. L1-L2: Mild disc height loss. There is mild bilateral facet arthropathy. There is no neuroforaminal stenosis. There is no spinal canal stenosis. L2-L3: Mild disc height loss. There is mild bilateral facet arthropathy. There is no neuroforaminal stenosis. There is no spinal canal stenosis. L3-L4: Mild disc height loss. There is mild bilateral facet arthropathy. There is no neuroforaminal stenosis. There is no spinal canal stenosis. L4-L5: There is an asymmetric left disc bulge with superimposed central disc and left lateral disc extrusion There is moderate right and severe left facet arthropathy. There is mild right and severe left neuroforaminal stenosis. There is moderate spinal canal stenosis. There is additional moderate right and severe left lateral recess stenosis. L5-S1: Moderate asymmetric disc bulge. There is moderate bilateral facet arthropathy, small right synovial cyst. There is severe right and moderate left neuroforaminal stenosis. There is mild spinal canal stenosis. Impression: 1. Redemonstrated degenerative disc disease of the lumbar spine notable for a left lateral disc bulge and superimposed protrusion at L4-L5 resulting in moderate right and severe left lateral recess stenosis, similar to prior. Additionally there is continued severe neuroforaminal stenosis on the left at L4-L5 and on the right at L5-S1. There is no high-grade spinal canal or neuroforaminal stenosis involving the cervical and thoracic spine. 2. There is flattening of the dorsal cord at T4-T5 which may reflect an arachnoid cyst or arachnoid web with associated short segment cord signal abnormality. This can be further characterized with nonemergent CT myelogram. 3. Partially imaged moderate left hydronephrosis, seen to greater advantage on recent CT of the abdomen and pelvis. Dictated by: Aston Vazquez MD The radiology attending physician has personally reviewed this study, and had reviewed and/or edited this written report and agrees with it. Electronically signed by: Kym Buckley M.D. CT Chest Abdomen Pelvis W Contrast Narrative: EXAMINATION: CT CHEST ABDOMEN PELVIS W CONTRAST HISTORY: 73-year-old with history of robotic prostatectomy who presents with progressive history of cloudy urine. TECHNIQUE: Transaxial computed tomographic images of the chest, abdomen and pelvis were obtained with intravenous contrast according to the standard protocol after the uneventful administration of 69 mL Opti-Ray 350 intravenous contrast. COMPARISON: Lumbar spine MR 10/01/2023 FINDINGS: Symmetric enhancement imaged thyroid. No supraclavicular, axillary lymphadenopathy. The heart size is normal. No pericardial effusion. Coronary artery calcifications are noted. The thoracic aorta and main pulmonary artery are normal in size. Mild dependent atelectasis. No pleural effusion. No pneumothorax. No suspicious pulmonary nodule. Numerous hypoattenuating hepatic lesions are noted, favored represent cysts. There is hypertrophy of the left hemiliver. The gallbladder is normal in size. No intra-extra hepatic biliary ductal dilatation. The pancreas is normal. The spleen is normal. The adrenal glands are normal. The right kidney is normal. There is no hydronephrosis. Punctate radiodensity seen in the superior pole collecting system likely represents a nonobstructive calculus. Additional hyperdensity seen in the midpole is also likely small nonobstructing calculus. The distal ureter is normal in caliber. There is mild to moderate left-sided hydronephrosis, with large nonobstructing calculus in the inferior collecting system, with engorgement of the renal pelvis, consistent with hydroureteronephrosis. There is some left perinephric stranding, and delayed contrast enhancement. Findings are consistent with obstructive uropathy. Significant gas can be seen surrounding the ureter, which favored to be postprocedural gas which is unchanged compared to CT 10/11/2023. Additionally, there is mild stranding of the distal ureter at the level of the external iliac vessels, which is nonspecific but may represent a component of pyelitis changes due obstruction in the mid ureter. No significant inflammatory changes are seen specifically surrounding the distended left renal collecting system and proximal ureter. Obstructive calculus is seen in the mid ureter, series 3 image 592 measures 6 mm in greatest dimension. The urinary bladder has a small locule of gas, likely due to recent instrumentation, but can also be seen in the setting of gas-forming infection. Faint stranding seen around the urinary bladder may represent a component of cystitis. Postsurgical changes are seen in the prostatectomy bed. No significant abdominal pelvic lymphadenopathy. No suspicious osseous lesion with redemonstration of degenerative changes in the lumbar spine, better seen on MR 10/01/2023. Impression: 1. Obstructing renal calculus in unchanged position compared to CT 10/11/2023, measuring 6 mm in size. 2. Unchanged retroperitoneal gas on the left side, likely postprocedural. 3. Inflammatory changes in the left perinephric space and retroperitoneum, which can be seen in setting of obstructive uropathy. 4. Gas in the urinary bladder may represent changes due to instrumentation however gas forming bacteria in the setting of obstructive uropathy/obstructive renal stone should also be considered. Dictated by: Govind Rodriguez MD The radiology attending physician has personally reviewed this study, and had reviewed and/or edited this written report and agrees with it. Electronically signed by: Mich Cabrera M.D. [place] Fluoroscopy < 1 Hour The images from this study are not interpreted by Radiology. Please refer to the physician's procedure / OR operative note. Assessment Hira Evans is a 73 y.o. male w/ a PMH of prostate cancer s/p RALPand severe LLE lumbar radiculopathy 2/2 disc herniation with a planned spinal surgery on 10/16, presented today for preoperative workup and was sent to ED with c/f infectious process. Found to have obstructing ureteral stonewith mild hydronephrosis and UCx growing E.coli. Yesterday we attempted to take patient to OR for L ureteral stent placement however procedure had to be aborted after we were unable to navigate wire past site of impaction despite multiple attempts.Went to IR suite this AM for L PCN however due to non-dilated calyces and lower pole renal stone, were unable to pass wire into kidney so procedure was aborted. After aggressive hydration and increase in hydronephrosis on ultrasound, IR attempted PCN placement again and were successful. Plan - Will discuss with patient and spine surgery optimal timing of stone intervention. Optimal for this procedure to occur sometime this week before spine surgery - Urology will continue to follow Thank you for allowing us to participate in the care of this patient. For any questions or concerns, please page Urology through the punch operator. Vero Tolentino MD 10/14/2023 Cosigned by Fredrick Mcneil MD at 10/17/2023 5:10 PM HOB MILL OPERATOR MILL OPERATOR MILL OPERATOR MILL OPERATOR * Plan of Care - Lyn Tolliver - 10/14/2023 10:28 PM CST Problem: Health Behavior: Goal: Understanding [...] injury in home environment Outcome: Progressing Problem: Activity: Goal: Mobility will [...] Goal: Pain level will decrease Outcome: Progressing Goals: Clinical Goals for the Shift: vital signs, medications, pain management, sleep and rest, comfort and safety Summary: monitored vital signs all throughout the shift. All due medications given as directed. Complaints of back pain, pain medications given as directed. Noted a partial pain relief. Had a restfulsleep. Remained free from fall and injury. Provided comfort and safety. Nephrostomy dressing changed. MILL OPERATOR * Plan of Care - Sue Allison RN - 10/14/2023 6:54 PM CST Problem: Health Behavior: Goal: Understanding of discharge needs will improve Outcome: Progressing Problem: Safety: Goal: Will remain free from falls Outcome: Progressing Problem: Lack of Knowledge: Goal: Understanding of ways to prevent future skin breakdown will improve Outcome: Progressing Goal: Ability to identify appropriate dietary choices will improve Outcome: Progressing Problem: Skin Integrity: Goal: Ability to demonstrate warm and dry skin will improve Outcome: Progressing Problem: Lack of Knowledge: Goal: Ability to develop a pain control plan will improve Outcome: Progressing Problem: Sensory: Goal: Ability to identify factors that increase the pain will improve Outcome: Progressing Goals: Clinical Goals for the Shift: vital signs, medications, comfort, safety Summary: Patient had nephrostomy tube placed in IR, vital signs stable except blood pressure high, MD notified. Patient resting comfortably. MILL OPERATOR * Post-Procedure Note - Ana Alfaro MD - 10/14/2023 1:46 PM CST Radiology Brief Post Procedure Note Attending: Dr. Hughes Floor Grinder: Dr. Alfaro Sedation/Anesthesia: Min Sedation Pre-Op/Pre-Procedure Diagnosis: Hydronephrosis Post-Op/Post-Procedure Diagnosis: Mild hydronephrosis with blood clots in the collecting system andmoderate hydroureter Procedure Performed: Right percutaneous PCN placement Procedure Findings: Successful PCN placement Complications: None Estimated Blood Loss: < 30 ml Specimens: 10 ml aspirate sent to the lab Condition: Stable Full report to follow. MILL OPERATOR * Pre-Procedure Note - Ana Alfaro MD - 10/14/2023 12:23 PM CST Images from the original note were not included. Radiology Long Sedation Form Indication: Left hydroureteronephrosis Planned Procedure: Percutaneous nephrostomy tube placement Planned Sedation/Anesthesia: minimal sedation History: 73-year-old man with incidentally discovered UTI and obstructing left ureteral stone. CT demonstrates mild hydronephrosis. Urology was unable to pass a stent pass the obstruction. PCN was attempted yesterday but was unsuccessful. He presents for a second attempt. PMH/PSH: Past Medical History: Diagnosis Date Allergic rhinitis Arthritis OA Cancer (CMS/HCC) (HCC) prostate and melonomia Gastric reflux GERD (gastroesophageal reflux disease) History of melanoma Hypertension Kidney stone Personal history of prostate cancer Pneumonia Seasonal allergies Past Surgical History: Procedure Laterality Date FL UPPER GI AIR CONTRAST W KUB Left 09/21/2023 JOINT REPLACEMENT Right 2013 right knee replacement MELANOMA RESECTION Right 2005 right flank PROSTATECTOMY 2009 REPLACEMENT TOTAL KNEE Left 10/17/2021 REVISION TOTAL KNEE ARTHROPLASTY Right 09/30/2019 VASECTOMY 30 years ago ROS: Review of systems per HPI and otherwise all other systems are negative Allergies: Patient has no known allergies. Current Meds: No current facility-administered medications for this visit. No current outpatient medications on file. Facility-Administered Medications Ordered in Other Visits: acetaminophen (TYLENOL) tablet 650 mg, 650 mg, oral, Q4H PRN, Severo Merlos MD, 650 mg at 10/13/23 1422 [Held by Provider] acyclovir (ZOVIRAX) tablet 400 mg, 400 mg, oral, BID, Severo Merlos MD Carrier Fluids for Secondary Infusion - 0.9% Sodium Chloride, 30 mL, intravenous, PRN, Ana Alfaro MD cefTRIAXone (ROCEPHIN) 2,000 mg/20 mL in sterile water (premix) 2,000 mg, 2,000 mg, intravenous, Q24H [facility], Severo Merlos MD, 2,000 mg at 10/14/23 0843 [Held by Provider] enoxaparin (LOVENOX) syringe 40 mg, 40 mg, subcutaneous, Daily-2100, Seevro Merlos MD HYDROmorphone (DILAUDID) injection 0.2 mg, 0.2 mg, intravenous, Q4H PRN, Marquise Lim MD, 0.2 mg at 10/14/23 0902 ondansetron ODT (ZOFRAN-ODT) disintegrating tablet 4 mg, 4 mg, oral, Q6H PRN OR ondansetron (ZOFRAN) injection 4 mg, 4 mg, intravenous, Q6H PRN, Severo Merlos MD, 4 mg at 10/14/[address] (PROTONIX) extended release tablet 40 mg, 40 mg, oral, Daily, Severo Merlos MD, 40 mg at 10/14/23 0843 ramelteon (ROZEREM) tablet 8 mg, 8 mg, oral, Nightly PRN, Jorgito Singer MD, 8 mg at 10/13/23 2158 sodium chloride 0.9% flush 0.5-20 mL, 0.5-20 mL, intra-catheter, Q8H [facility], Ana Alfaro MD, 10 mL at 10/14/23 0636 sodium chloride 0.9% flush 0.5-20 mL, 0.5-20 mL, intra-catheter, PRN, Ana Alfaro MD sodium chloride 0.9% infusion, 75 mL/hr, intravenous, Continuous, Alice Mei MD, Last Rate: 75 mL/hr at 10/14/23 0902, 75 mL/hr at 10/14/23 0902 tamsulosin (FLOMAX) extended release capsule 0.8 mg, 0.8 mg, oral, Daily with dinner, Marquise Lim MD, 0.8 mg at 10/13/23 1703 Physical exam: Physical Exam Cardiovascular: Rate and Rhythm: Normal rate and regular rhythm. Pulmonary: Effort: Pulmonary effort is normal. Breath sounds: Normal breath sounds. Abdominal: Palpations: Abdomen is soft. Neurological: Mental Status: He is alert. Most Recent Vitals: There were no vitals filed for this visit. Airway Assessment: normal Labs/Imaging: Hematology Lab History Latest Ref Rng & Units 10/11/2023 12:18 10/12/2023 19:50 10/13/2023 06:50 10/14/2023 06:30 Labs - Hematology WBC 3.8 - 9.9 K/cumm 15.2 8.1 6.2 9.4 Total Hb, POC 13.0 - 17.5 g/dL 14.9 13.7 13.3 11.4 Hct 38.9 - 50.3 % 42.6 38.5 37.0 32.2 Plt 150 - 400 K/cumm 148 155 143 134 Neutrophil abs 1.5 - 6.5 K/cumm 12.7 6.4 5.8 7.4 Lymphocytes, abs 0.8 - 3.3 K/cumm 0.8 0.7 0.2 0.6 Chem/LFT Lab History Latest Ref Rng & Units 10/11/2023 12:18 10/12/2023 19:50 10/13/2023 06:50 10/14/2023 06:30 Labs-Chem/LFT Sodium 135 - 145 mmol/L 132 133 137 136 Creatinine 0.80 - 1.30 mg/dL 1.08 0.99 0.82 1.20 Bilirubin, total 0.1 - 1.2 mg/dL 1.1 0.7 0.5 AST 10 - 50 Units/L 24 50 49 ALT 7 - 55 Units/L 20 68 67 Alk phos 40 - 130 Units/L 120 113 108 CrCl- Actual Body Weight (Cockcroft-Gault) 75.7 77.9 94 64.3 Assessment: Will proceed with the procedure. ASA Score: 3 NPO time: after midnight Benefits, risks and alternatives of procedure and planned sedation have been discussed with the patient and/or their equal opportunity representative. All questions answered and they agree to proceed. MILL OPERATOR MILL OPERATOR * Plan of Care - Lyn Tolliver - 10/13/2023 11:05 PM CST Problem: Health Behavior: Goal: Understanding [...] injury in home environment Outcome: Progressing Problem: Activity: Goal: Mobility will [...] improve to fullest extent possible Outcome: Progressing Goals: Clinical Goals for the Shift: vital signs, medications, pain control, NPO after midnight, sleep andrest, intake and output. Summary: monitored vital signs all throughout the shift. No complaints of pain noted all throughoutthe shift. Kept the patient NPO after midnight. Complaints of left lower pain, pain medications given as directed. Notified MD Barney about the decreased urine output, NS IV bolus given as ordered. Labs obtained and sent to lab. Observed Strict intake and output. Monitored hematuria. MILL OPERATOR * Consults, Subsequent - Vero Tolentino MD - 10/13/2023 5:57 PM HOB MILL OPERATOR Images from the original note were not included. Urology Consult Note Subjective Chief Complaint: C/f left obstructing ureteral stone with UTI Requesting provider: Dr. Hargrove Interval History: Yesterday we attempted to take patient to OR for L ureteral stent placement however procedure had to be aborted after we were unable to navigate wire past site of impaction despite multiple attempts.Went to IR suite this AM for L PCN however due to non-dilated calyces and lower pole renal stone, were unable to pass wire into kidney so procedure was aborted. This AM, patient appears well although family reports he did appear diaphoretic and shaky after he got back from IR. Labs notable for Cr 0.82 (0.99), WBC 6.2 (8.1) The patient's past medical, surgical, were reviewed and noncontributory to this illness/condition except as noted below: The patient's past medical history is notable for: Past Medical History: Diagnosis Date Allergic rhinitis Arthritis OA Cancer (CMS/HCC) (HCC) prostate and melonomia Gastric reflux GERD (gastroesophageal reflux disease) History of melanoma Hypertension Kidney stone Personal history of prostate cancer Pneumonia Seasonal allergies The patient's past surgical history is notable for: Past Surgical History: Procedure Laterality Date FL UPPER GI AIR CONTRAST W KUB Left 09/21/2023 JOINT REPLACEMENT Right 2013 right knee replacement MELANOMA RESECTION Right 2005 right flank PROSTATECTOMY 2009 REPLACEMENT TOTAL KNEE Left 10/17/2021 REVISION TOTAL KNEE ARTHROPLASTY Right 09/30/2019 VASECTOMY 30 years ago Review of systems negative other than what is stated in the HPI. Objective In/Outs: I/O last 3 completed shifts: In: 420 [I.V.:400; IV Piggyback:20] Out: 700 [Urine:700] I/O this shift: In: - Out: 450 [Urine:450] Physical Exam: Vitals: 10/13/23 1031 10/13/23 1038 10/13/23 1122 10/13/23 1558 BP: 157/93 131/75 138/86 BP Location: Patient Position: Pulse: 103 104 103 93 Resp: 18 20 Temp: 36.4 ??C (97.6 ??F) TempSrc: SpO2: 92% 93% 95% 96% Weight: Height: General: In no acute distress Pulmonary: Non-labored breathing Cardiovascular: Well perfused Abdomen: soft, non tender, Non distended : voiding cloudy yellow urine spontaneously Neuro: Alert and oriented Psych: Appropriate and cooperative Labs/Imaging: Chem/LFT Lab History Latest Ref Rng & Units 10/11/2023 12:18 10/12/2023 19:50 10/13/2023 06:50 Labs-Chem/LFT Sodium 135 - 145 mmol/L 132 133 137 Creatinine 0.80 - 1.30 mg/dL 1.08 0.99 0.82 Bilirubin, total 0.1 - 1.2 mg/dL 1.1 0.7 AST 10 - 50 Units/L 24 50 ALT 7 - 55 Units/L 20 68 Alk phos 40 - 130 Units/L 120 113 CrCl- Actual Body Weight (Cockcroft-Gault) 75.7 77.9 94 Hematology Lab History Latest Ref Rng & Units 10/11/2023 12:18 10/12/2023 19:50 10/13/2023 06:50 Labs - Hematology WBC 3.8 - 9.9 K/cumm 15.2 8.1 6.2 Total Hb, POC 13.0 - 17.5 g/dL 14.9 13.7 13.3 Hct 38.9 - 50.3 % 42.6 38.5 37.0 Plt 150 - 400 K/cumm 148 155 143 Neutrophil abs 1.5 - 6.5 K/cumm 12.7 6.4 5.8 Lymphocytes, abs 0.8 - 3.3 K/cumm 0.8 0.7 0.2 The following images were personally reviewed by me. MRI Spine Total Complete W WO Contrast Narrative: EXAMINATION: 1. Magnetic resonance imaging (MRI) of the cervical spine without and with contrast 2. Magnetic resonance imaging (MRI) of the thoracic spine without and with contrast 3. Magnetic resonance imaging (MRI) of the lumbar spine without and with contrast HISTORY: Myelopathy, acute TECHNIQUE: Multiplanar multi-weighted MRI of the cervical spine was performed without and with intravenous contrast using the standard protocol. Multiplanar multi-weighted MRI of the thoracic was performed without and with intravenous contrast using the standard protocol. Multiplanar multi-weighted MRI of the lumbar spine was performed without and with intravenous contrast using the standard protocol. Contrast information: 16 mL Gadoterate Meglumine COMPARISON: MR lumbar spine 10/01/2023, 08/30/2023 FINDINGS: CERVICAL SPINE: There is exaggerated cervical kyphosis. There are mixed Modic type I and type II changes throughout the cervical spine. No acute fracture is identified. The craniocervical junction is normal. The visualized portions of the skull base and the posterior fossa are normal. The spinal cord demonstrates normal signal intensity on all sequences. No soft tissue abnormality is identified. Normal signal voids are present in the vertebral arteries. C2-C3: Mild disc height loss. There is mild bilateral facet arthropathy. There is no uncovertebral joint disease. There is no neuroforaminal stenosis. There is no spinal canal stenosis. C3-C4: Mild diffuse disc bulge. There is mild to moderate bilateral facet arthropathy. There is mild bilateral uncovertebral joint disease. There is mild bilateral neuroforaminal stenosis. There is no spinal canal stenosis. C4-C5: Diffuse disc bulge and ligamentum flavum infolding. There is mild bilateral facet arthropathy. There is mild bilateral uncovertebral joint disease. There is moderate right and severe left neuroforaminal stenosis. There is no spinal canal stenosis. C5-C6: Diffuse disc bulge. There is mild right and moderate left facet arthropathy. There is mild bilateral uncovertebral joint disease. There is mild bilateral neuroforaminal stenosis. There is no spinal canal stenosis. C6-C7: Diffuse disc height loss. There is mild right and moderate left facet arthropathy. There is mild bilateral uncovertebral joint disease. There is mild bilateral neuroforaminal stenosis. There is no spinal canal stenosis. C7-T1: Disc height loss. There is mild bilateral facet arthropathy. There is mild bilateral uncovertebral joint disease. There is no neuroforaminal stenosis. There is no spinal canal stenosis. THORACIC SPINE: The alignment of the thoracic spine is normal. Heterogeneous bone marrow signal throughout. There are no compression fractures. There is a prominent central canal. There flattening of the dorsal cord at T4-T5. Limited views of the chest and abdomen show no soft tissue abnormality. The aorta is normal. There are small disc protrusions at T7-T8 and T9-T10. There is no facet arthropathy. There is moderate neuroforaminal stenosis at T10. There is no spinal canal stenosis. LUMBAR SPINE: The alignment of the lumbar spine is normal. There is heterogeneous bone marrow signal throughout. There are no compression fractures. The conus medullaris terminates at the level of L1-L2. The distal spinal cord signal intensity is normal. Intervertebral disks have normal height and signal intensity. Redemonstrated moderate left hydronephrosis. The aorta is normal. L1-L2: Mild disc height loss. There is mild bilateral facet arthropathy. There is no neuroforaminal stenosis. There is no spinal canal stenosis. L2-L3: Mild disc height loss. There is mild bilateral facet arthropathy. There is no neuroforaminal stenosis. There is no spinal canal stenosis. L3-L4: Mild disc height loss. There is mild bilateral facet arthropathy. There is no neuroforaminal stenosis. There is no spinal canal stenosis. L4-L5: There is an asymmetric left disc bulge with superimposed central disc and left lateral disc extrusion There is moderate right and severe left facet arthropathy. There is mild right and severe left neuroforaminal stenosis. There is moderate spinal canal stenosis. There is additional moderate right and severe left lateral recess stenosis. L5-S1: Moderate asymmetric disc bulge. There is moderate bilateral facet arthropathy, small right synovial cyst. There is severe right and moderate left neuroforaminal stenosis. There is mild spinal canal stenosis. Impression: 1. Redemonstrated degenerative disc disease of the lumbar spine notable for a left lateral disc bulge and superimposed protrusion at L4-L5 resulting in moderate right and severe left lateral recess stenosis, similar to prior. Additionally there is continued severe neuroforaminal stenosis on the left at L4-L5 and on the right at L5-S1. There is no high-grade spinal canal or neuroforaminal stenosis involving the cervical and thoracic spine. 2. There is flattening of the dorsal cord at T4-T5 which may reflect an arachnoid cyst or arachnoid web with associated short segment cord signal abnormality. This can be further characterized with nonemergent CT myelogram. 3. Partially imaged moderate left hydronephrosis, seen to greater advantage on recent CT of the abdomen and pelvis. Dictated by: Aston Vazquez MD The radiology attending physician has personally reviewed this study, and had reviewed and/or edited this written report and agrees with it. Electronically signed by: Kym Buckley M.D. CT Chest Abdomen Pelvis W Contrast Narrative: EXAMINATION: CT CHEST ABDOMEN PELVIS W CONTRAST HISTORY: 73-year-old with history of robotic prostatectomy who presents with progressive history of cloudy urine. TECHNIQUE: Transaxial computed tomographic images of the chest, abdomen and pelvis were obtained with intravenous contrast according to the standard protocol after the uneventful administration of 69 mL Opti-Ray 350 intravenous contrast. COMPARISON: Lumbar spine MR 10/01/2023 FINDINGS: Symmetric enhancement imaged thyroid. No supraclavicular, axillary lymphadenopathy. The heart size is normal. No pericardial effusion. Coronary artery calcifications are noted. The thoracic aorta and main pulmonary artery are normal in size. Mild dependent atelectasis. No pleural effusion. No pneumothorax. No suspicious pulmonary nodule. Numerous hypoattenuating hepatic lesions are noted, favored represent cysts. There is hypertrophy of the left hemiliver. The gallbladder is normal in size. No intra-extra hepatic biliary ductal dilatation. The pancreas is normal. The spleen is normal. The adrenal glands are normal. The right kidney is normal. There is no hydronephrosis. Punctate radiodensity seen in the superior pole collecting system likely represents a nonobstructive calculus. Additional hyperdensity seen in the midpole is also likely small nonobstructing calculus. The distal ureter is normal in caliber. There is mild to moderate left-sided hydronephrosis, with large nonobstructing calculus in the inferior collecting system, with engorgement of the renal pelvis, consistent with hydroureteronephrosis. There is some left perinephric stranding, and delayed contrast enhancement. Findings are consistent with obstructive uropathy. Significant gas can be seen surrounding the ureter, which favored to be postprocedural gas which is unchanged compared to CT 10/11/2023. Additionally, there is mild stranding of the distal ureter at the level of the external iliac vessels, which is nonspecific but may represent a component of pyelitis changes due obstruction in the mid ureter. No significant inflammatory changes are seen specifically surrounding the distended left renal collecting system and proximal ureter. Obstructive calculus is seen in the mid ureter, series 3 image 592 measures 6 mm in greatest dimension. The urinary bladder has a small locule of gas, likely due to recent instrumentation, but can also be seen in the setting of gas-forming infection. Faint stranding seen around the urinary bladder may represent a component of cystitis. Postsurgical changes are seen in the prostatectomy bed. No significant abdominal pelvic lymphadenopathy. No suspicious osseous lesion with redemonstration of degenerative changes in the lumbar spine, better seen on MR 10/01/2023. Impression: 1. Obstructing renal calculus in unchanged position compared to CT 10/11/2023, measuring 6 mm in size. 2. Unchanged retroperitoneal gas on the left side, likely postprocedural. 3. Inflammatory changes in the left perinephric space and retroperitoneum, which can be seen in setting of obstructive uropathy. 4. Gas in the urinary bladder may represent changes due to instrumentation however gas forming bacteria in the setting of obstructive uropathy/obstructive renal stone should also be considered. Dictated by: Govind Rodriguez MD The radiology attending physician has personally reviewed this study, and had reviewed and/or edited this written report and agrees with it. Electronically signed by: Mich Cabrera M.D. [place] Fluoroscopy < 1 Hour The images from this study are not interpreted by Radiology. Please refer to the physician's procedure / OR operative note. Assessment Hira Evans is a 73 y.o. male w/ a PMH of prostate cancer s/p RALPand severe LLE lumbar radiculopathy 2/2 disc herniation with a planned spinal surgery on 10/16, presented today for preoperative workup and was sent to ED with c/f infectious process. Found to have obstructing ureteral stonewith mild hydronephrosis and UCx growing E.coli. Yesterday we attempted to take patient to OR for L ureteral stent placement however procedure had to be aborted after we were unable to navigate wire past site of impaction despite multiple attempts.Went to IR suite this AM for L PCN however due to non-dilated calyces and lower pole renal stone, were unable to pass wire into kidney so procedure was aborted. Patient appears stable now so he is likely only partially obstructed, but he will ultimately require some sort of diversion for his urinary tract. Plan - NPO @ [place] - Renal US in AM - Continue broad spectrum antibiotics - Recommend aggressive hydration to medically optimize patient for PCN - Start flomax - Urology will continue to follow Thank you for allowing us to participate in the care of this patient. For any questions or concerns, please page Urology through the punch operator. Vero Tolentino MD 10/13/2023 Cosigned by Fredrick Mcneil MD at 10/13/2023 11:37 PM HOB MILL OPERATOR MILL OPERATOR MILL OPERATOR MILL OPERATOR * Initial Assessments - Torey Mckenna RN - 10/13/2023 2:42 PM HOB MILL OPERATOR CM Initial Assessment Interview Note Information Obtained From: Patient (10/13/231439) in the room Admission Source: from ED Impression: 73 yo male admitted for UTI. Plan Includes: to establish a safe discharge plan Primary Source of Transportation: Does the patient need discharge transport arranged?: (unknown, as [place] location unknown) (10/13/231439) Health Insurance Coverage: [facility] Medicare Prescription Coverage: yes Pharmacy: [facility] [address] [place] [address] [phone] [place] [address] [address] [facility] [address] Primary Care Provider: Rl Medina DO Prior to Admission: Primary Caregiver: Self Support System: Spouse/Significant Other, Children Home Care Services: No Durable Medical Equipment: Cane (single prong), Walker (wheeled) Living Arrangements: Spouse/significant other Type of Residence: Private residence Steps in home?: Yes, Outside of home Number of steps outside: 4 steps Medication management: Independent (10/13/23439) SDOH: Transportation: Financial Resource: Housing: Social Connections: Food Insecurity: Alcohol Use: PHQ Screening Potential discharge needs include: needs pending Dialysis: no Behavioral Health Services: Behavioral Health Services: No (10/13/231439) Patient expects to be Discharged to: Private residence, (10/13/23439) Additional Information: PCP verified. Family at bedside, supportive. Lives with . Patient is not a . Role of CM explained. Unclear discharge location at this time as family describes patient came here for one thing but then it turned into this. Patient's Identified Problem/Goal Problem: Ensure acute medical [...] Collaboration with patient, MD, direct care nurse, Assistant Chief Of Police, and other members of the health care team to assure needed interventions completed. 2. Return patient to optimal level of self-care post discharge. 3. Capacity Planning Analyst will follow for Discharge Planning - interventions as needed 4. Anticipated level of care at discharge 5. Planned Discharge Disposition Based on a comprehensive family assessment, assistance with instrumental activities of daily livingafter discharge will be provided by TBD. Through the course of our work I determined that the TBD possesses the skill and ability to provideand monitor the care of the patient when he or she returns home. TBD has the capacity to provide/monitor/arrange for the care of the patient. Finally, we determined that TBD has the knowledge of available resources and that combining them with their existing resources will suffice to sustain and care for the patient when he or she returns home. The treatment team is aware of this information. Allare in agreement with the aftercare plan. Torey Mckenna RN MILL OPERATOR * Hospital Course - Jimenez Henao MD - 10/13/2023 2:42 PM HOB MILL OPERATOR Hira Evans is a 73 y.o. male w/ a PMH of prostate cancer s/p RALPand severe LLE lumbar radiculopathy 2/2 disc herniation with a planned spinal surgery (open L4-L5 posterior spinal fusion with instrumentation, TLIF from the left side, laminectomy, with autograft, allograft by Orthopedic surgery) on 10/16. He presented for preoperative evaluation with increasing weakness with fever and chills with foul smelling urine UTI with left ureteric stone and hydronephrosis: Presented for preoperative evaluation with increasing weakness with fever and chills with foul smelling urine and CT scan showed obstructing left ureteral stone with resulting left hydronephrosis with positive urinalysis and urine culture growing E coli (pending susceptibility) now s/o cystoscopy, u nfortunately failed ureteral stenting due to tortous ureter and ?impacted ureteral stone. IR guidedUreteral stent placement was attempted on 10/13, however no calyceal dilation was noted contrast washing down the ureter. Post procedure, after arrival to the floors he started experiencing vigorous chills and was noted to have some episodes of vomiting, given concern for bacterial seeding post procedure, IV fluids, IV ketorolac and IV gentamicin was given. Blood cultures were obtained which showed no growth and urineculture showed 2 spp butts sensitive E coli. IV ceftriaxone was started. IR re-attempted 10/14 with successful L PCN placement. Ceftriaxone continued until 10/18 at which time urology performed cystoscopy with lithotripsy, L ureteral stent placement, and L PCN removal which was successful. At this time, decision between urology and orthopedic surgery with plan to continue antibiotics despite complete removal of ureteric stone due to concern for orthopedic hardware placement and patient was switched to oral Keflex on 10/19 which was continued to 10/23. Lumbar spine degenerative disease with compression of the left L4 nerve. Found to have UTI on preop evaluation for L4-5 posterior spinal fusion with TLIF. Evaluated by ortho in house and recommended neurochecks q4 hours and to hold DVT prophylaxis. After discussion with ortho, his surgery as postponed to 10/23. MILL OPERATOR MILL OPERATOR MILL OPERATOR MILL OPERATOR MILL OPERATOR MILL OPERATOR MILL OPERATOR MILL OPERATOR MILL OPERATOR MILL OPERATOR MILL OPERATOR * Plan of Care - Js Cardenas RN - 10/13/2023 1:30 PM CST Goals: Clinical Goals for the Shift: vss, pain control. Problem: Health Behavior: Goal: Understanding of discharge needs will improve Outcome: Not Progressing Problem: Activity: Goal: Mobility will improve Outcome: Not Progressing Summary: Pt had no falls/injuries during shift. VSS. A&Ox4. Pt arrived back from IR around 1020. At 1030 pt started shivering and shaking uncontrollably. VSS, but MD notified. MD at bedside ordered IV abx, bolus, and pain medicine. Pt currently NPO. Family at bedside. MILL OPERATOR * Post-Procedure Note - Ana Alfaro MD - 10/13/2023 9:46 AM CST Radiology Brief Post Procedure Note Attending: Dr. Mar Floor Grinder: Dr. Alfaro Sedation/Anesthesia: Min Sedation Pre-Op/Pre-Procedure Diagnosis: Hydroureteronephrosis with an obstructing stone Post-Op/Post-Procedure Diagnosis: Same Procedure Performed: Attempted PCN placement Procedure Findings: Non-dilated calyces with contrast washing down the ureter. Complications: None Estimated Blood Loss: None Specimens: None Condition: Stable Full report to follow. MILL OPERATOR * Pre-Procedure Note - Ana Alfaro MD - 10/13/2023 7:58 AM CST Images from the original note were not included. Radiology Long Sedation Form Indication: Left hydroureteronephrosis Planned Procedure: Percutaneous cholecystostomy tube placement Planned Sedation/Anesthesia: minimal sedation History: 73-year-old man with incidentally discovered UTI and obstructing left ureteral stone. CT demonstrates mild hydronephrosis. Urology was unable to pass a stent pass the obstruction. He presents for PCN placement. PMH/PSH: Past Medical History: Diagnosis Date Allergic rhinitis Arthritis OA Cancer (CMS/HCC) (HCC) prostate and melonomia Gastric reflux GERD (gastroesophageal reflux disease) History of melanoma Hypertension Kidney stone Personal history of prostate cancer Pneumonia Seasonal allergies Past Surgical History: Procedure Laterality Date FL UPPER GI AIR CONTRAST W KUB Left 09/21/2023 JOINT REPLACEMENT Right 2013 right knee replacement MELANOMA RESECTION Right 2005 right flank PROSTATECTOMY 2009 REPLACEMENT TOTAL KNEE Left 10/17/2021 REVISION TOTAL KNEE ARTHROPLASTY Right 09/30/2019 VASECTOMY 30 years ago ROS: Review of systems per HPI and otherwise all other systems are negative Allergies: Patient has no known allergies. Current Meds: No current facility-administered medications for this visit. No current outpatient medications on file. Facility-Administered Medications Ordered in Other Visits: acetaminophen (TYLENOL) tablet 650 mg, 650 mg, oral, Q4H PRN, Severo Merlos MD acyclovir (ZOVIRAX) tablet 400 mg, 400 mg, oral, BID, Severo Merlos MD cefTRIAXone (ROCEPHIN) 2,000 mg/20 mL in sterile water (premix) 2,000 mg, 2,000 mg, intravenous, Q24H CAMMY, Severo Merlos MD enoxaparin (LOVENOX) syringe 40 mg, 40 mg, subcutaneous, Daily-2100, Severo Merlos MD ondansetron ODT (ZOFRAN-ODT) disintegrating tablet 4 mg, 4 mg, oral, Q6H PRN OR ondansetron (ZOFRAN) injection 4 mg, 4 mg, intravenous, Q6H PRN, Severo Merlos MD pantoprazole DR (PROTONIX) extended release tablet 40 mg, 40 mg, oral, Daily, Severo Merlos MD sodium chloride 0.9% infusion, 100 mL/hr, intravenous, Continuous, Severo Merlos MD, Last Rate: 100 mL/hr at 10/13/23 06, 100 mL/hr at 10/13/23646 Physical exam: Physical Exam Cardiovascular: Rate and Rhythm: Normal rate and regular rhythm. Pulmonary: Effort: Pulmonary effort is normal. Breath sounds: Normal breath sounds. Abdominal: Palpations: Abdomen is soft. Neurological: Mental Status: He is alert. Most Recent Vitals: There were no vitals filed for this visit. Airway Assessment: normal Labs/Imaging: Hematology Lab History Latest Ref Rng & Units 10/11/2023 12:18 10/12/2023 19:50 Labs - Hematology WBC 3.8 - 9.9 K/cumm 15.2 8.1 Total Hb, POC 13.0 - 17.5 g/dL 14.9 13.7 Hct 38.9 - 50.3 % 42.6 38.5 Plt 150 - 400 K/cumm 148 155 Neutrophil abs 1.5 - 6.5 K/cumm 12.7 6.4 Lymphocytes, abs 0.8 - 3.3 K/cumm 0.8 0.7 Chem/LFT Lab History Latest Ref Rng & Units 10/11/2023 12:18 10/12/2023 19:50 Labs-Chem/LFT Sodium 135 - 145 mmol/L 132 133 Creatinine 0.80 - 1.30 mg/dL 1.08 0.99 Bilirubin, total 0.1 - 1.2 mg/dL 1.1 AST 10 - 50 Units/L 24 ALT 7 - 55 Units/L 20 Alk phos 40 - 130 Units/L 120 CrCl- Actual Body Weight (Cockcroft-Gault) 75.7 77.9 Assessment: Will proceed with the procedure. ASA Score: 3 NPO time: after midnight Benefits, risks and alternatives of procedure and planned sedation have been discussed with the patient and/or their equal opportunity representative. All questions answered and they agree to proceed. MILL OPERATOR * Assessment & Plan Note - Severo Merlos MD - 10/13/2023 5:39 AM HOB MILL OPERATOR Associated Problem(s): Prostate cancer (HCC) S/p postprostatectomy MILL OPERATOR * Assessment & Plan Note - Marquise Lim MD - 10/13/2023 5:36 AM HOB MILL OPERATOR Associated Problem(s): HTN (hypertension) Hold home irbesartan Restart diltiazem xl MILL OPERATOR MILL OPERATOR MILL OPERATOR * Assessment & Plan Note - Jimenez Henao MD - 10/13/2023 5:36 AM HOB MILL OPERATOR Associated Problem(s): Hydronephrosis with urinary obstruction due to renal calculus Presented with generalized weakness with fever and chills with CT evidence of left ureteral stone with hydro s/o cystoscopy. . Retrograde contrast during cystoscopy revealed a tortuous left ureter and contrast which did not fill past the mid ureter at the site of likely impacted left ureteral stone, thus Stent was not placed. Procedure was aborted and 16 F harris placed in bladder to drainage. Also IR guided Ureteral stent placement was attempted, however no calyceal dilation was noted contrast washing down the ureter. 10/14 he underwent successful Ir guided PCN tube placement. -ceftriaxone --> cephalexin 500 mg q6hr (10/19-) -received loading dose of gentamicin on 10/13 -Continue harris catheter for decompression (replaced on 10/18) -zofran [...] though OK to de-escalate to oral regimen MILL OPERATOR MILL OPERATOR MILL OPERATOR MILL OPERATOR MILL OPERATOR MILL OPERATOR MILL OPERATOR MILL OPERATOR MILL OPERATOR MILL OPERATOR MILL OPERATOR MILL OPERATOR MILL OPERATOR MILL OPERATOR MILL OPERATOR * Assessment & Plan Note - iJmenez Henao MD - 10/13/2023 5:36 AM HOB MILL OPERATOR Associated Problem(s): Lumbar radiculopathy He has been planned for plan for [...] they prefer holding DVT chemoprophylaxis days prior tosurgery. OK for SCDs Neurochecks every 4 hours Surgery rescheduled to 10/23/23 MILL OPERATOR MILL OPERATOR MILL OPERATOR MILL OPERATOR MILL OPERATOR MILL OPERATOR * Assessment & Plan Note - Jimenez Henao MD - 10/13/2023 5:35 AM HOB MILL OPERATOR Associated Problem(s): UTI (urinary tract infection) - Complicated UTI with the presence of left ureteral stone and Pyelitis - urine culture grew E-coli which is pansusceptible. - Discussion with urology and orthopedic surgery: continue Keflex 500 mg q6hr as it appears patientwill stay in-house until OR on 10/22-10/23 -Antibiotics as above. MILL OPERATOR MILL OPERATOR MILL OPERATOR MILL OPERATOR MILL OPERATOR MILL OPERATOR * Plan of Care - Silvana Man RN - 10/13/2023 4:58 AM CST Problem: Health Behavior: Goal: Understanding [...] injury in home environment Outcome: Progressing Problem: Activity: Goal: Mobility will [...] improve to fullest extent possible Outcome: Progressing Goals: meds/labs/vs/pain/rest/free from falls and injury/new admission to this unit Summary: meds are given as ordered/client has not voiced pain and discomfort/client is resting comfortably without voiced complaint of insomnia/client remains free from fall and injury/labs are monitored/client is instructed on new admit orders/call light,bed controls,meal times,televisions controls. MILL OPERATOR * Perioperative Nursing Note - Philip Ha RN - 10/13/2023 3:41 AM HOB MILL OPERATOR Pt is being signed out by Anesthesia. MILL OPERATOR * Op Note - Fredrick Mcneil MD - 10/13/2023 2:44 AM CST Operative Note Patient Name: HIRA EVANS : 1950 Operative Date: 10/13/23 Date of Surgery: 10/13/2023 Procedure: CYSTOSCOPY, PYELOGRAM - RETROGRADE (L) Surgeon: Fredrick Mcneil MD Surgical Team: Surgeon(s) and Role: * Fredrick Mcneil MD - Primary * Vero Tolentino MD - Resident - Assisting Anesthesia: General Preoperative Diagnosis: Left ureteral stone Sepsis due to urinary tract infection Postoperative Diagnosis: Same Antibiotics: Ceftriaxone Indications: Hira Evans is a 73 y.o. male with an obstructing left ureteral stone with a urinary tractinfection brought to the operating room for left ureteral stent placement. Findings: Retrograde contrast revealed a tortuous left ureter and contrast which did not fill past the mid ureter at the site of likely impacted left ureteral stone. Unable to navigate wire or past site of impaction despite multiple attempts with sensor tip wire and angle tip glide wire. Stent was not placed. Procedure Details: After informed consent was obtained the patient was brought to the operative suite and general anesthesia was induced. He was positioned in dorsal lithotomy. His penis was prepped and draped in standard sterile fashion. A 20 Fr rigid cystoscope was navigated into his bladder under direct visualization. Urethra was without stricture. Prostate was surgically absent. Bladder was not trabeculated. Panendoscopy revealed no abnormalities. Ureteral orifices were identified and in normal orthotopic position. The left ureteral orifice was cannulated with a glidewire. A 6 F open ended catheter was introduced into the left ureteral orifice. Retrograde contrast revealed a tortuous left ureter and contrast which did not fill past the mid ureter at the site of likely impacted left ureteral stone. Unable to navigate wire or past site of impaction despite multiple attempts with sensor tip wire and angle tip glide wire. Stent was not placed. Procedure was aborted and 16 F harris placed in bladder to drainage. I was present for the entire duration of the procedure Estimated Blood Loss: No blood loss documented. Drains: None Specimens: None Implants: * No implants in log * Complications: None Disposition: PACU - hemodynamically stable. Condition: stable Plan: Consult IR for left nephrostomy tube placement MILL OPERATOR * ED Re-evaluation Note - Genaro Chavira MD - 10/12/2023 11:05 PM HOB MILL OPERATOR ED Re-evaluation TRANSITION OF CARE: Genaro Dixon MD, am taking signout from the resident under supervision of the attending.I have reviewed all pertinent vital signs, allergies, and history available in the chart. Summary: 73 y.o. male with PMH notable for prostate cancer, chronic urinary incontinence, with planned lumbar spinal fusion for progressive back pain and leg weakness who presents for E. Coli UTI identified on pre-op testing. Pending: urology consult. Dispo: likely admission. ED Course as of 10/12/23 2320 Time: 10/12 1840 Comment: Attending physician assessment and plan: 73 yom PMH of prostate cancer, chronic urine incontinence, progressive low back pain with progressive pain and weakness in left quad, followed by orthopedic spine surgery, intent on lumbar fusion early next week, sent here due to pre-op work up showing UTI. Culture growing e coli - sensitives pending. Patient has had low grade fevers, worsening pain and leg weakness in past several days, reports more than one month of foul smelling urine, endorses mild suprapubic tenderness and mild left flank tenderness on exam. HR normal good cap refill on exam, no resp distress, lungs CTA. Patient sent here for treatment due to need for urgent spine surgery with hardware and evidence of infection. On review of orthopedics attending note - requesting medical admission for infections and malignancy work up. MRI L spine 10/01/2023: IMPRESSION: Moderate degenerative changes of the lumbar spine, worse at L4-L5, as described in detail above. A left lateral disc extrusion is present at L4-L5. Prominent contrast enhancement is also identified within the left neural foramen which islikely secondary to inflammation. Severe left lateral recess stenosis is also visible. Given the findings at L4-L5, the exiting left L4 and traversing left L5 nerve roots are likely affected. Reviewed CT T and L spine from yesterday: IMPRESSION: 1. Moderate degenerative changes of the lumbar spine, worst at L4-L5, as described in detail above. 2. New dilatation of the left renal pelvis and ureter, to the level of a focus of calcification, likely representing a ureteral stone. Plan: Sepsis work up - start IV ceftriaxone, check CBC, CMP, UA reflex, CT chest abd and pelvis, consider urology consult if evidence of stone present. Med admission. Will contact ortho spine serviceto make aware of admission given neuro deficits. By: Rafael Cowan MD Time: 10/12 1948 Comment: Discussed with Ortho spine surgery: agree with plan want to add blood cultures x 2 and MRIof C T and L spine today. Requesting Admission to medicine. Will get urology involved if evidence of ureteral stone on CT imaging today. By: Rfaael Cowan MD Time: 10/12 2207 Value: CT Chest Abdomen Pelvis W Contrast Comment: 1. Obstructing renal calculus in unchanged position compared to CT 10/11/2023, measuring 6 mm in size. 2. Unchanged retroperitoneal gas on the left side, likely postprocedural. 3. Inflammatory changes in the left inferior retroperitoneum, which represent a component of pyelitis. Stranding seen around the urinarybladder may represent cystitis. Recommend correlation withurinalysis. By: Amol Hargrove MD Time: 10/12 2231 Comment: Consulted urology given obstructing renal calculus, and UTI. Concern for infected stone. By: Amol Hargrove MD Time: 10/12 2318 Comment: ATTENDING TRANSITION OF CARE I, Delvin Harrington MD, am taking signout from Camryn (Attending). I have reviewed all pertinent vital signs allergies, and history available in the chart. Summary: 73 y.o. male urology Pending: reccs from specialists Dispo: admit By: Delvin Harrington MD Kurtz, Camden Emmett, MD Resident 10/12/232318 MILL OPERATOR documented in this encounter Plan of Treatment Pending Results Name Type Priority Associated Diagnoses Date /Time Erythrocyte sedimentation rate Lab STAT 10/12/2023 7:50 PM HOB MILL OPERATOR CRP (acute phase) Lab STAT 023 7:50 PM HOB MILL OPERATOR Basic metabolic panel Lab Routine 7:06 PM HOB MILL OPERATOR Phosphorus Lab Routine 10/29/2023 9:5 3 PM HOB MILL OPERATOR Magnesium Lab Routine 10/29/2023 9:5 3 PM HOB MILL OPERATOR Scheduled Orders Name Type Priority Associated Diagnoses Orde r Schedule Erythrocyte sedimentation rate Lab STAT Once for 1 Occur rences starting 10/12/2023 until 10/12/2023 CRP (acute phase) Lab STAT Once fo r 1 Occurrences starting 10/12/2023 until 10/12/2023 Basic metabolic panel Lab Routine Onc e for 1 Occurrences starting 10/24/2023 until 10/24/2023 Phosphorus Lab Routine Once for 1 Occ urrences starting 10/29/2023 until 10/29/2023 Magnesium Lab Routine Once for 1 Occ urrences starting 10/29/2023 until 10/29/2023 Scheduled Referrals Name Type Priority Associated Diagnoses Orde r Schedule Ambulatory referral to Neurology Outpatient Referral Routine Seizures, generalized convulsive (HCC) Expected: 11/08/2023 (Approximate), Expires: 10/25/2024 documented as of this encounter Procedures Procedure Name Priority Date/Time Associated Diagnosis Comments XR SPINE LUMBAR 2 OR 3 VIEWS Pending Discharge 10/30/2023 9:49 AM HOB MILL OPERATOR EGFR Routine 10/29/2023 9:53 PM HOB MILL OPERATOR DIFFERENTIAL AUTO Routine 10/29/2023 9:5 3 PM HOB MILL OPERATOR CBC WITH AUTO DIFFERENTIAL Routine 10/29/2023 9:53 PM HOB MILL OPERATOR PHOSPHORUS Routine 10/29/2023 9:53 PM HOB MILL OPERATOR MAGNESIUM Routine 10/29/2023 9:53 PM HOB MILL OPERATOR BASIC METABOLIC PANEL Routine 10/29/2023 9:53 PM HOB MILL OPERATOR EGFR Routine 10/29/2023 4:40 AM HOB MILL OPERATOR DIFFERENTIAL AUTO Routine 10/29/2023 4:4 0 AM HOB MILL OPERATOR CBC WITH AUTO DIFFERENTIAL Routine 10/29/2023 4:40 AM HOB MILL OPERATOR TYPE AND SCREEN Timed 10/29/2023 4:40 AM HOB MILL OPERATOR PHOSPHORUS Routine 10/29/2023 4:40 AM HOB MILL OPERATOR MAGNESIUM Routine 10/29/2023 4:40 AM HOB MILL OPERATOR BASIC METABOLIC PANEL Routine 10/29/2023 4:[address] HEAD WO CONTRAST IP Routine 10/28/2023 5 :58 PM HOB MILL OPERATOR EGFR Routine 10/27/2023 11:32 PM HOB MILL OPERATOR DIFFERENTIAL AUTO Routine 10/27/2023 11:32 PM HOB MILL OPERATOR CBC WITH AUTO DIFFERENTIAL Routine 10/27/2023 11:32 PM HOB MILL OPERATOR BASIC METABOLIC PANEL Routine 10/27/2023 11:32 PM HOB MILL OPERATOR CBC WITHOUT DIFFERENTIAL Timed 10/27/2023 4:37 AM HOB MILL OPERATOR PHOSPHORUS Routine 10/27/2023 4:37 AM HOB MILL OPERATOR MAGNESIUM Routine 10/27/2023 4:37 AM HOB MILL OPERATOR EGFR Routine 10/26/2023 8:07 PM HOB MILL OPERATOR DIFFERENTIAL AUTO Routine 10/26/2023 8:0 7 PM HOB MILL OPERATOR CBC WITH AUTO DIFFERENTIAL Routine 10/26/2023 8:07 PM HOB MILL OPERATOR BASIC METABOLIC PANEL Routine 10/26/2023 8:07 PM HOB MILL OPERATOR EGFR STAT 10/26/2023 5:28 PM HOB MILL OPERATOR APTT STAT 10/26/2023 5:28 PM HOB MILL OPERATOR PROTIME-INR STAT 10/26/2023 5:28 PM HOB MILL OPERATOR CBC WITHOUT DIFFERENTIAL STAT 10/26/2023 5:28 PM HOB MILL OPERATOR CREATININE STAT 10/26/2023 5:28 PM HOB MILL OPERATOR DIFFERENTIAL AUTO Timed 10/26/2023 2:4 3 PM HOB MILL OPERATOR CBC WITH AUTO DIFFERENTIAL Timed 10/26/2023 2:43 PM HOB MILL OPERATOR APTT STAT 10/26/2023 11:09 AM HOB MILL OPERATOR TRANSFUSE RED BLOOD CELLS Timed 10/26/2023 10:02 AM HOB MILL OPERATOR PREPARE RBC Timed 10/26/2023 4:46 AM HOB MILL OPERATOR TRANSFUSE RED BLOOD CELLS Timed 10/26/2023 3:55 AM HOB MILL OPERATOR PREPARE RBC Timed 10/26/2023 3:03 AM HOB MILL OPERATOR APTT STAT 10/26/2023 2:21 AM HOB MILL OPERATOR CBC WITHOUT DIFFERENTIAL Timed 10/26/2023 2:21 AM HOB MILL OPERATOR TYPE AND SCREEN Timed 10/26/2023 2:21 AM HOB MILL OPERATOR PHOSPHORUS Routine 10/26/2023 2:21 AM HOB MILL OPERATOR MAGNESIUM Routine 10/26/2023 2:21 AM HOB MILL OPERATOR POTASSIUM, WHOLE BLOOD STAT 10/25/2023 10:11 PM HOB MILL OPERATOR CRITICAL CARE Routine 10/25/2023 9:09 PM HOB MILL OPERATOR Cardiac arrest (HCC) EGFR Routine 10/25/2023 8:41 PM HOB MILL OPERATOR DIFFERENTIAL AUTO Routine 10/25/2023 8:4 1 PM HOB MILL OPERATOR CBC WITH AUTO DIFFERENTIAL Routine 10/25/2023 8:41 PM HOB MILL OPERATOR BASIC METABOLIC PANEL Routine 10/25/2023 8:41 PM HOB MILL OPERATOR POCT GLUCOSE DEVICE Routine 10/25/2023 7 :22 PM HOB MILL OPERATOR CRITICAL CARE Routine 10/25/2023 6:45 PM HOB MILL OPERATOR Seizures, generalized convulsive (HCC) APTT STAT 10/25/2023 4:59 PM HOB MILL OPERATOR POCT GLUCOSE DEVICE Routine 10/25/2023 3 :09 PM HOB MILL OPERATOR MRI BRAIN EPILEPSY W WO CONTRAST IP Routine 10/25/2023 1:55 PM HOB MILL OPERATOR POCT GLUCOSE DEVICE Routine 10/25/2023 10:57 AM HOB MILL OPERATOR DIFFERENTIAL AUTO Timed 10/25/2023 10:14 AM HOB MILL OPERATOR CBC WITH AUTO DIFFERENTIAL Timed 10/25/2023 10:14 AM HOB MILL OPERATOR APTT STAT 10/25/2023 10:14 AM HOB MILL OPERATOR XR CHEST 1 VIEW ED Urgent/IP Urgent 10/25/2023 9:52 AM HOB MILL OPERATOR POCT GLUCOSE DEVICE Routine 10/25/2023 6 :58 AM HOB MILL OPERATOR POCT GLUCOSE DEVICE Routine 10/25/2023 3 :44 AM HOB MILL OPERATOR APTT STAT 10/25/2023 3:14 AM HOB MILL OPERATOR POCT GLUCOSE DEVICE Routine 10/24/2023 11:45 PM HOB MILL OPERATOR CRITICAL CARE Routine 10/24/2023 11:00 PM HOB MILL OPERATOR Cardiac arrest (HCC) CALCIUM, IONIZED Routine 10/24/2023 9:11 PM HOB MILL OPERATOR POCT GLUCOSE DEVICE Routine 10/24/2023 7 :42 PM HOB MILL OPERATOR EGFR Routine 10/24/2023 7:06 PM HOB MILL OPERATOR DIFFERENTIAL AUTO Routine 10/24/2023 7:0 6 PM HOB MILL OPERATOR CBC WITH AUTO DIFFERENTIAL Routine 10/24/2023 7:06 PM HOB MILL OPERATOR APTT Routine 10/24/2023 7:06 PM HOB MILL OPERATOR PROTIME-INR Routine 10/24/2023 7:06 PM HOB MILL OPERATOR PHOSPHORUS Routine 10/24/2023 7:06 PM HOB MILL OPERATOR MAGNESIUM Routine 10/24/2023 7:06 PM HOB MILL OPERATOR BASIC METABOLIC PANEL Routine 10/24/2023 7:06 PM HOB MILL OPERATOR POCT GLUCOSE DEVICE Routine 10/24/2023 2 :58 PM HOB MILL OPERATOR APTT STAT 10/24/2023 12:18 PM HOB MILL OPERATOR TRANSTHORACIC ECHO (TTE) COMPLETE W DOPPLER/CF W CONTRAST STAT 10/24/2023 11:43 AM HOB MILL OPERATOR POCT GLUCOSE DEVICE Routine 10/24/2023 11:04 AM HOB MILL OPERATOR TROPONIN I HIGH-SENSITIVITY 6-HOUR Timed 10/24/2023 9:39 AM HOB MILL OPERATOR TROPONIN I HIGH-SENSITIVITY Routine 10/24/2023 8:32 AM HOB MILL OPERATOR POCT GLUCOSE DEVICE Routine 10/24/2023 7 :31 AM HOB MILL OPERATOR CRITICAL CARE Routine 10/24/2023 6:48 AM HOB MILL OPERATOR Cardiac arrest (HCC) TROPONIN I HIGH-SENSITIVITY 2-HOUR Timed 10/24/2023 5:38 AM HOB MILL OPERATOR APTT STAT 10/24/2023 5:38 AM HOB MILL OPERATOR EEG Routine 10/24/2023 5:02 AM HOB MILL OPERATOR ECG 12-LEAD STAT 10/24/2023 3:44 AM HOB MILL OPERATOR TROPONIN I HIGH-SENSITIVITY SERIES (BASELINE, 2HR, 4HR, 6HR) Routine 10/24/2023 3:38 AM HOB MILL OPERATOR LACTATE Routine 10/24/2023 3:38 AM HOB MILL OPERATOR CRITICAL RESULT CALLBACK CARDIO CHEM Routine 10/24/2023 3:38 AM HOB MILL OPERATOR POCT GLUCOSE DEVICE Routine 10/24/2023 3 :25 AM HOB MILL OPERATOR HIV 1/2 ANTIBODY PLUS P24 ANTIGEN Routine 10/24/2023 12:20 AM HOB MILL OPERATOR POCT GLUCOSE DEVICE Routine 10/24/2023 12:20 AM HOB MILL OPERATOR APTT STAT 10/24/2023 12:20 AM HOB MILL OPERATOR PROTIME-INR STAT 10/24/2023 12:20 AM HOB MILL OPERATOR CBC WITHOUT DIFFERENTIAL STAT 10/24/2023 12:[address] CHEST PE ABDOMEN PELVIS W CONTRAST ED Urgent/IP Urgent 10/23/2023 11:[address] HEAD WO CONTRAST Critical/Life-Th reatening 10/23/2023 11:48 PM HOB MILL OPERATOR CRITICAL CARE Routine 10/23/2023 11:47 PM HOB MILL OPERATOR Cardiac arrest (HCC) DIFFERENTIAL AUTO Routine 10/23/2023 11:03 PM HOB MILL OPERATOR CALCIUM, IONIZED STAT 10/23/2023 11:03 PM HOB MILL OPERATOR CBC WITH AUTO DIFFERENTIAL Routine 10/23/2023 11:03 PM HOB MILL OPERATOR MANUAL DIFFERENTIAL Routine 10/23/2023 11:03 PM HOB MILL OPERATOR BLOOD GAS, ARTERIAL STAT 10/23/2023 11:03 PM HOB MILL OPERATOR EGFR STAT 10/23/2023 11:02 PM HOB MILL OPERATOR APTT STAT 10/23/2023 11:02 PM HOB MILL OPERATOR PROTIME-INR STAT 10/23/2023 11:02 PM HOB MILL OPERATOR PHOSPHORUS STAT 10/23/2023 11:02 PM HOB MILL OPERATOR MAGNESIUM STAT 10/23/2023 11:02 PM HOB MILL OPERATOR LIPID PANEL STAT 10/23/2023 11:02 PM HOB MILL OPERATOR COMPREHENSIVE METABOLIC PANEL STAT 10/23/2023 11:02 PM HOB MILL OPERATOR POC BLOOD GAS AND CHEMISTRIES, ARTERIAL Routine 10/23/2023 10:39 PM HOB MILL OPERATOR POC BLOOD GAS AND CHEMISTRIES, ARTERIAL Routine 10/23/2023 10:07 PM HOB MILL OPERATOR EGFR STAT 10/23/2023 9:52 PM HOB MILL OPERATOR CBC WITHOUT DIFFERENTIAL STAT 10/23/2023 9:52 PM HOB MILL OPERATOR BASIC METABOLIC PANEL STAT 10/23/2023 9:52 PM HOB MILL OPERATOR POC BLOOD GAS AND CHEMISTRIES, VENOUS Routine 10/23/2023 9:50 PM HOB MILL OPERATOR FL FLUOROSCOPY < 1 HOUR IP Routine 10/23/2023 8:45 PM HOB MILL OPERATOR SPINAL CORD MONITORING 10/23/2023 4:26 PM HOB MILL OPERATOR Lumbar radiculopathy Case Notes 10/22: Cell Saver Audit, case msg to [facility] 0905/No Special Needs OSI- 6 post, c-arm, SCM, prone view pillow, autograft, allograft (30cc cancellous chips), Globus Creo PSI, Globus Altera, Globus Sable LAMINECTOMY LUMBAR - POSTERIOR 10/23/2023 4:26 PM HOB MILL OPERATOR Lumbar radiculopathy Case Notes 10/22: Cell Saver Audit, case msg to [facility] 0905/No Special Needs OSI- 6 post, c-arm, SCM, prone view pillow, autograft, allograft (30cc cancellous chips), Globus Creo PSI, Globus Altera, Globus Sable FUSION SPINAL - POSTERIOR LUMBAR/THORACIC WITH INSTRUMENTATION 10/23/2023 4:26 PM HOB MILL OPERATOR Lumbar radiculopathy Case Notes 10/22: Cell Saver Audit, case msg to [facility] 0905/No Special Needs OSI- 6 post, c-arm, SCM, prone view pillow, autograft, allograft (30cc cancellous chips), Globus Creo PSI, Globus Altera, Globus Sable EGFR Routine 10/22/2023 9:39 PM HOB MILL OPERATOR DIFFERENTIAL AUTO Routine 10/22/2023 9:3 9 PM HOB MILL OPERATOR CBC WITH AUTO DIFFERENTIAL Routine 10/22/2023 9:39 PM HOB MILL OPERATOR PROTIME-INR Routine 10/22/2023 9:39 PM HOB MILL OPERATOR TYPE AND SCREEN Timed 10/22/2023 9:39 PM HOB MILL OPERATOR BASIC METABOLIC PANEL Routine 10/22/2023 9:39 PM HOB MILL OPERATOR XR CHEST 1 VIEW IP Routine 10/22/2023 6:24 AM HOB MILL OPERATOR EGFR Routine 10/21/2023 10:52 PM HOB MILL OPERATOR DIFFERENTIAL AUTO Routine 10/21/2023 10:52 PM HOB MILL OPERATOR CBC WITH AUTO DIFFERENTIAL Routine 10/21/2023 10:52 PM HOB MILL OPERATOR BASIC METABOLIC PANEL Routine 10/21/2023 10:52 PM HOB MILL OPERATOR EGFR Routine 10/20/2023 9:38 PM HOB MILL OPERATOR DIFFERENTIAL AUTO Routine 10/20/2023 9:3 8 PM HOB MILL OPERATOR CBC WITH AUTO DIFFERENTIAL Routine 10/20/2023 9:38 PM HOB MILL OPERATOR BASIC METABOLIC PANEL Routine 10/20/2023 9:38 PM HOB MILL OPERATOR EGFR Routine 10/19/2023 9:11 PM HOB MILL OPERATOR DIFFERENTIAL AUTO Routine 10/19/2023 9:1 1 PM HOB MILL OPERATOR CBC WITH AUTO DIFFERENTIAL Routine 10/19/2023 9:11 PM HOB MILL OPERATOR BASIC METABOLIC PANEL Routine 10/19/2023 9:11 PM HOB MILL OPERATOR EGFR Routine 10/18/2023 9:29 PM HOB MILL OPERATOR DIFFERENTIAL AUTO Routine 10/18/2023 9:2 9 PM HOB MILL OPERATOR CBC WITH AUTO DIFFERENTIAL Routine 10/18/2023 9:29 PM HOB MILL OPERATOR BASIC METABOLIC PANEL Routine 10/18/2023 9:29 PM HOB MILL OPERATOR DEXA AXIAL SKELETON BONE DENSITY 1 OR MORE SITES IP Routine 10/18/2023 12:45 PM HOB MILL OPERATOR FL FLUOROSCOPY < 1 HOUR IP Routine 10/18/2023 11:27 AM HOB MILL OPERATOR REMOVAL NEPHROSTOMY TUBE - FLOUROSCPY 10/18/2023 9:27 AM HOB MILL OPERATOR Hydronephrosis with urinary obstruction due to renal calculus PLACEMENT PREOPERATIVE STENT - URETERAL 10/18/2023 9:27 AM HOB MILL OPERATOR Hydronephrosis with urinary obstruction due to renal calculus URETEROSCOPY 10/18/2023 9:27 AM HOB MILL OPERATOR Hydronephrosis with urinary obstruction due to renal calculus LITHOTRIPSY - LASER 10/18/2023 9:27 AM HOB MILL OPERATOR Hydronephrosis with urinary obstruction due to renal calculus PYELOGRAM - RETROGRADE 10/18/2023 9:27 AM HOB MILL OPERATOR Hydronephrosis with urinary obstruction due to renal calculus CYSTOSCOPY 10/18/2023 9:27 AM HOB MILL OPERATOR Hydronephrosis with urinary obstruction due to renal calculus EGFR Routine 10/17/2023 10:52 PM HOB MILL OPERATOR DIFFERENTIAL AUTO Routine 10/17/2023 10:52 PM HOB MILL OPERATOR CBC WITH AUTO DIFFERENTIAL Routine 10/17/2023 10:52 PM HOB MILL OPERATOR APTT Routine 10/17/2023 10:52 PM HOB MILL OPERATOR PROTIME-INR Routine 10/17/2023 10:52 PM HOB MILL OPERATOR BASIC METABOLIC PANEL Routine 10/17/2023 10:[address] UROGRAM IP Routine 10/16/2023 12:36 PM HOB MILL OPERATOR PERCUTANEOUS NEPHROSTOMY PCN LEFT IP Routine 10/14/2023 1:38 PM HOB MILL OPERATOR URINALYSIS AND REFLEX TO MICROSCOPIC AND CULTURE Routine 10/14/2023 1:35 PM HOB MILL OPERATOR URINALYSIS, MICROSCOPIC ONLY Routine 10/14/2023 1:35 PM HOB MILL OPERATOR URINE CULTURE Routine 10/14/2023 1:35 PM HOB MILL OPERATOR US KIDNEY COMPLETE Timed 10/14/2023 7: 15 AM HOB MILL OPERATOR EGFR Routine 10/14/2023 6:30 AM HOB MILL OPERATOR DIFFERENTIAL AUTO Routine 10/14/2023 6:3 0 AM HOB MILL OPERATOR CBC WITH AUTO DIFFERENTIAL Routine 10/14/2023 6:30 AM HOB MILL OPERATOR COMPREHENSIVE METABOLIC PANEL Routine 10/14/2023 6:30 AM HOB MILL OPERATOR BLOOD CULTURE Routine 10/13/2023 10:59 PM HOB MILL OPERATOR BLOOD CULTURE Routine 10/13/2023 11:01 AM HOB MILL OPERATOR FL FLUOROSCOPY < 1 HOUR ED Urgent/IP Urgent 10/13/2023 9:48 AM HOB MILL OPERATOR EGFR Routine 10/13/2023 6:50 AM HOB MILL OPERATOR DIFFERENTIAL AUTO Routine 10/13/2023 6:5 0 AM HOB MILL OPERATOR CBC WITH AUTO DIFFERENTIAL Routine 10/13/2023 6:50 AM HOB MILL OPERATOR COMPREHENSIVE METABOLIC PANEL Routine 10/13/2023 6:50 AM HOB MILL OPERATOR FL FLUOROSCOPY < 1 HOUR IP Routine 10/13/2023 3:00 AM HOB MILL OPERATOR PYELOGRAM - RETROGRADE 10/13/2023 2:21 AM HOB MILL OPERATOR Hydronephrosis with urinary obstruction due to renal calculus CYSTOSCOPY 10/13/2023 2:21 AM HOB MILL OPERATOR Hydronephrosis with urinary obstruction due to renal calculus MRI SPINE TOTAL COMPLETE W WO CONTRAST ED 10/12/2023 11:44 PM HOB MILL OPERATOR BLOOD CULTURE STAT 10/12/2023 9:38 [address] M[address] O[address] CHEST ABDOMEN PELVIS W CONTRAST ED 10/12/2023 9:00 PM HOB MILL OPERATOR LACTATE STAT 10/12/2023 7:50 PM HOB MILL OPERATOR EGFR STAT 10/12/2023 7:50 PM HOB MILL OPERATOR DIFFERENTIAL AUTO STAT 10/12/2023 7:5 0 PM HOB MILL OPERATOR URINALYSIS AND REFLEX TO MICROSCOPIC AND CULTURE STAT 10/12/2023 7:50 PM HOB MILL OPERATOR CBC WITH AUTO DIFFERENTIAL STAT 10/12/2023 7:50 PM HOB MILL OPERATOR BLOOD CULTURE STAT 10/12/2023 7:50 PM HOB MILL OPERATOR URINALYSIS, MICROSCOPIC ONLY STAT 10/12/2023 7:50 PM HOB MILL OPERATOR ERYTHROCYTE SEDIMENTATION RATE STAT 10/12/2023 7:50 PM HOB MILL OPERATOR URINE CULTURE STAT 10/12/2023 7:50 PM HOB MILL OPERATOR CRP (ACUTE PHASE) STAT 10/12/2023 7:5 0 PM HOB MILL OPERATOR BASIC METABOLIC PANEL STAT 10/12/2023 7:50 PM HOB MILL OPERATOR documented in this encounter Results * XR Spine Lumbar 2 or 3 Views (10/30/2023 9:49 AM HOB MILL OPERATOR) Anatomical Region Laterality Modality Spine N/A Computed Radiogr aphy 10/30/2023 10:1 9 AM HOB MILL OPERATOR Impressions 10/30/2023 10:25 AM HOB MILL OPERATOR 1. ??Posterior instrumented spinal fusion from L4 to L5 with combined interbody fusion. Dictated by: Tamia Rojas MD The radiology attending physician has personally reviewed this study, and had reviewed and/or edited this written report and agrees with it. Electronically signed by: Dmitry Navarro MD Narrative 10/30/2023 10:25 AM HOB MILL OPERATOR EXAMINATION: XR SPINE LUMBAR 2 OR 3 VIEWS HISTORY: ??Fusion. FINDINGS: 2 radiographs of the lumbar spine are submitted for interpretation with prior comparison to CT dated 10/11/2023. Posterior spinal fixation from L4 to L5 with interbody fusion. Degenerative changes to the unfused lumbar spine. Vertebral body heights are maintained. ??No spondylolisthesis. Left ureteral stent partially imaged. Procedure Note Dmitry Navarro MD - 10/30/2023 EXAMINATION: XR SPINE LUMBAR 2 OR 3 VIEWS HISTORY: Fusion. FINDINGS: 2 radiographs of the lumbar spine are submitted for interpretation with prior comparison to CT dated 10/11/2023. Posterior spinal fixation from L4 to L5 with interbody fusion. Degenerative changes to the unfused lumbar spine. Vertebral body heights are maintained. No spondylolisthesis. Left ureteral stent partially imaged. IMPRESSION: 1. Posterior instrumented spinal fusion from L4 to L5 with combined interbody fusion. Dictated by: Tamia Rojas MD The radiology attending physician has personally reviewed this study, and had reviewed and/or edited this written report and agrees with it. Electronically signed by: Dmitry Navarro MD us Rafael Rodriguez CROWN CERAMIST IMG XR PROCEDURES Final Resu lt * eGFR (10/29/2023 9:53 PM HOB MILL OPERATOR) [facility] eGFR 85 >=60 mL/min/1. 73 m2 [facility] Comment: Interpretive Data Reference Interval Normal [...] interpretive data was last reviewed 2021. Blood 10/29/2023 9:53 PM HOB MILL OPERATOR 10/29/2023 10:11 PM HOB MILL OPERATOR Tia Nolan NP LAB BLOOD ORDERABLES F inal Result Performing Organization Address City/[facility]/ZIP Co de Phone Number [facility] [place] [address] * Magnesium (10/29/2023 9:53 PM HOB MILL OPERATOR) Magnesium 1.7 1.4 - 2.5 mg/dL [facility] Blood 10/29/2023 9:53 PM HOB MILL OPERATOR 10/29/2023 10:11 PM HOB MILL OPERATOR Hayder Vu Jr., MD LAB BLOOD ORDERABLE S Final Result [facility] [place] [address] * Phosphorus (10/29/2023 9:53 PM HOB MILL OPERATOR) Phosphorus, pl 2.6 2.3 - 4.5 mg/dL [facility] Blood 10/29/2023 9:53 PM HOB MILL OPERATOR 10/29/2023 10:11 PM HOB MILL OPERATOR us Hayder Vu Jr., MD LAB BLOOD ORDERABLE S Final Result [facility] [place] [address] * Differential, auto (10/29/2023 9:53 PM HOB MILL OPERATOR) Neutrophil abs 4.9 1.5 - 6.5 K/cumm [facility] Imm gran abs 0.1 0.0 - 0.1 K/cumm [facility] Lymphocyte abs 1.3 0.8 - 3.3 K/cumm [facility] Monocyte abs 0.7 0.2 - 0.8 K/cumm [facility] Eosinophil abs 0.2 0.0 - 0.5 K/cumm [facility] Basophil abs 0.0 0.0 - 0.1 K/cumm [facility] Neutrophil pct 68.7 % [facility] Comment: Interpretive Data Percent cell count reference ranges are not reported, since discordance with absolute values may lead to misinterpretation of CBC data. Current Interpretive Data was last revised on 2018. Imm gran pct 1.0 % [facility] Comment: Interpretive Data Percent cell count reference ranges are not reported, since discordance with absolute values may lead to misinterpretation of CBC data. Current Interpretive Data was last revised on 2018. Lymphocyte pct 18.3 % [facility] Comment: Interpretive Data Percent cell count reference ranges are not reported, since discordance with absolute values may lead to misinterpretation of CBC data. Current Interpretive Data was last revised on 2018. Monocyte pct 9.7 % [facility] Comment: Interpretive Data Percent cell count reference ranges are not reported, since discordance with absolute values may lead to misinterpretation of CBC data. Current Interpretive Data was last revised on 2018. Eosinophil pct 2.2 % [facility] Comment: Interpretive Data Percent cell count reference ranges are not reported, since discordance with absolute values may lead to misinterpretation of CBC data. Current Interpretive Data was last revised on 2018. Basophil pct 0.1 % [facility] Comment: Interpretive Data Percent cell count reference ranges are not reported, since discordance with absolute values may lead to misinterpretation of CBC data. Current Interpretive Data was last revised on 2018. Blood 10/29/2023 9:53 PM HOB MILL OPERATOR 10/29/2023 10:11 PM HOB MILL OPERATOR Tia Nolan CR[facility]ER[facility]IST LAB BLOOD ORDERABLES F inal Result Performing Organization Address [facility] Co de Phone Number [facility] [place] [address] * (ABNORMAL) CBC with auto differential (10/29/2023 9:53 PM HOB MILL OPERATOR) WBC 7.2 3.8 - 9.9 K/cumm [facility] Hgb 9.4(L) 13.0 - 17.5 g/dL [facility] Hct 28.0(L) 38.9 - 50.3 % [facility] Plt 313 150 - 400 K/cumm [facility] MPV 10.7 9.1 - 12.3 fL [facility] RBC 3.00(L) 4.30 - 5.80 M/cumm [facility] MCV 93.3 81.3 - 96.4 fL [facility] MCH 31.3 27.1 - 33.3 pg [facility] MCHC 33.6 32.3 - 35.7 g/dL [facility] RDW CV 13.7 11.1 - 14.9 % [facility] RDW SD 46.5 35.7 - 48.1 fL [facility] NRBC abs 0.00 0.00 - 0.01 K/cumm [facility] Blood 10/29/2023 9:53 PM HOB MILL OPERATOR 10/29/2023 10:11 PM HOB MILL OPERATOR Tia Nolan CROWN CERAMIST LAB BLOOD ORDERABLES F inal Result Performing Organization Address [facility] Co de Phone Number [facility] [place] [address] * (ABNORMAL) Basic metabolic panel (10/29/2023 9:53 PM HOB MILL OPERATOR) Pathologist [facility] Sodium 137 135 - 145 mmol/L [facility] Potassium, pl 3.7 3.3 - 4.9 mmol/L [facility] Chloride 103 97 - 110 mmol/L [facility] CO2 24 22 - 32 mmol/L [facility] Anion gap 10 2 - 15 mmol/L [facility] BUN 10 6 - 25 mg/dL [facility] Creatinine 0.95 0.80 - 1.30 mg/dL [facility] Glucose 108 70 - 199 mg/dL [facility] Comment: Interpretive Data Fasting glucose [...] 2022. Calcium 8.1(L) 8.5 - 10.3 mg/dL [facility] Blood 10/29/2023 9:53 PM HOB MILL OPERATOR 10/29/2023 10:11 PM HOB MILL OPERATOR Tia Nolan CR[facility]ER[facility] LAB BLOOD ORDERABLES F inal Result [facility] [place] [address] * eGFR (10/29/2023 4:40 AM HOB MILL OPERATOR) [facility] eGFR >90 >=60 mL/min/1. 73 m2 [facility] Comment: Interpretive Data Reference Interval [...] interpretive data was last reviewed 2021. Blood 10/29/2023 4:40 AM HOB MILL OPERATOR 10/29/2023 5:04 AM HOB MILL OPERATOR us Tia Nolan [facility] LAB BLOOD ORDERABLES F inal Result [facility] [place] [address] * Differential, auto (10/29/2023 4:40 AM HOB MILL OPERATOR) Pathologist [facility] Neutrophil abs 3.6 1.5 - 6.5 K/cumm [facility] Imm gran abs 0.1 0.0 - 0.1 K/cumm [facility] Lymphocyte abs 1.0 0.8 - 3.3 K/cumm [facility] Monocyte abs 0.6 0.2 - 0.8 K/cumm [facility] Eosinophil abs 0.2 0.0 - 0.5 K/cumm [facility] Basophil abs 0.0 0.0 - 0.1 K/cumm [facility] Neutrophil pct 66.1 % [facility] Comment: Interpretive Data Percent cell count reference ranges are not reported, since discordance with absolute values may lead to misinterpretation of CBC data. Current Interpretive Data was last revised on 2018. Imm gran pct 1.1 % [facility] Comment: Interpretive Data Percent cell count reference ranges are not reported, since discordance with absolute values may lead to misinterpretation of CBC data. Current Interpretive Data was last revised on 2018. Lymphocyte pct 18.9 % [facility] Comment: Interpretive Data Percent cell count reference ranges are not reported, since discordance with absolute values may lead to misinterpretation of CBC data. Current Interpretive Data was last revised on 2018. Monocyte pct 10.4 % [facility] Comment: Interpretive Data Percent cell count reference ranges are not reported, since discordance with absolute values may lead to misinterpretation of CBC data. Current Interpretive Data was last revised on 2018. Eosinophil pct 3.1 % [facility] Comment: Interpretive Data Percent cell count reference ranges are not reported, since discordance with absolute values may lead to misinterpretation of CBC data. Current Interpretive Data was last revised on 2018. Basophil pct 0.4 % [facility] Comment: Interpretive Data Percent cell count reference ranges are not reported, since discordance with absolute values may lead to misinterpretation of CBC data. Current Interpretive Data was last revised on 2018. Blood 10/29/2023 4:40 AM HOB MILL OPERATOR 10/29/2023 5:05 AM HOB MILL OPERATOR us Tia Nolan [facility]ER[facility]IST LAB BLOOD ORDERABLES F inal Result [facility] [place] [address] * Type and screen (10/29/2023 4:40 AM HOB MILL OPERATOR) Jigna, indirect Negative ABO Rh O Positive [facility] Blood 10/29/2023 4:40 AM HOB MILL OPERATOR 10/29/2023 5:09 AM HOB MILL OPERATOR Narrative [facility] - 10/29/2023 6:37 AM HOB MILL OPERATOR Has the patient had Daratumumab or Isatuximab in the past 6 months?->Unknown Tia Nolan [facility]ER[facility]IST LAB BLOOD BANK TEST OR DERABLES Final Result Performing Organization Address City/[facility]/ZIP Co de Phone Number [facility] [place] [address] * (ABNORMAL) CBC with auto differential (10/29/2023 4:40 AM HOB MILL OPERATOR) [facility] WBC 5.4 3.8 - 9.9 K/cumm [facility] Hgb 9.5(L) 13.0 - 17.5 g/dL [facility] Hct 27.9(L) 38.9 - 50.3 % [facility] Plt 295 150 - 400 K/cumm [facility] MPV 10.8 9.1 - 12.3 fL [facility] RBC 3.03(L) 4.30 - 5.80 M/cumm [facility] MCV 92.1 81.3 - 96.4 fL [facility] MCH 31.4 27.1 - 33.3 pg [facility] MCHC 34.1 32.3 - 35.7 g/dL [facility] RDW CV 13.6 11.1 - 14.9 % [facility] RDW SD 45.1 35.7 - 48.1 fL [facility] NRBC abs 0.00 0.00 - 0.01 K/cumm [facility] Blood 10/29/2023 4:40 AM HOB MILL OPERATOR 10/29/2023 5:05 AM HOB MILL OPERATOR Tia Nolan CR[facility]ER[facility]IST LAB BLOOD ORDERABLES F inal Result Performing Organization Address City/[facility]/ZIP Co de Phone Number [facility] [place] [address] * (ABNORMAL) Basic metabolic panel (10/29/2023 4:40 AM HOB MILL OPERATOR) [facility] Sodium 139 135 - 145 mmol/L [facility] Potassium, pl 3.5 3.3 - 4.9 mmol/L [facility] Chloride 104 97 - 110 mmol/L [facility] CO2 23 22 - 32 mmol/L [facility] Anion gap 12 2 - 15 mmol/L [facility] BUN 11 6 - 25 mg/dL [facility] Creatinine 0.88 0.80 - 1.30 mg/dL [facility] Glucose 112 70 - 199 mg/dL [facility] Comment: Interpretive Data Fasting glucose [...] 2022. Calcium 8.2(L) 8.5 - 10.3 mg/dL [facility] Blood 10/29/2023 4:40 AM HOB MILL OPERATOR 10/29/2023 5:04 AM HOB MILL OPERATOR Tia Nolan [facility]ER[facility] LAB BLOOD ORDERABLES F inal Result Performing Organization Address City/[facility]/ZIP Co de Phone Number [facility] [place] [address] * Phosphorus (10/29/2023 4:40 AM HOB MILL OPERATOR) Pathologist [facility] Phosphorus, pl 2.7 2.3 - 4.5 mg/dL [facility] Blood 10/29/2023 4:40 AM HOB MILL OPERATOR 10/29/2023 5:05 AM HOB MILL OPERATOR Tia Nolan CR[facility]ER[facility]IST LAB BLOOD ORDERABLES F inal Result Performing Organization Address City/[facility]/ZIP Co de Phone Number [facility] [place] [address] * Magnesium (10/29/2023 4:40 AM HOB MILL OPERATOR) Magnesium 1.8 1.4 - 2.5 mg/dL [facility] Blood 10/29/2023 4:40 AM HOB MILL OPERATOR 10/29/2023 5:05 AM HOB MILL OPERATOR us Tia Alla Nolan [facility]ER[facility]IST LAB BLOOD ORDERABLES F inal Result [facility] [place] [address] * CT Head WO Contrast (10/28/2023 5:58 PM HOB MILL OPERATOR) Anatomical Region Laterality Modality Head and Neck N/A Computed Tomogra phy 10/28/2023 8:46 PM HOB MILL OPERATOR Impressions 10/29/2023 10:19 AM HOB MILL OPERATOR 1. ??Thin bilateral subdural collections along the cerebral convexities, not significantly changed in size, which may represent some combination of subdural hemorrhage and hygromas. 2. ??No new acute intracranial hemorrhage, significant mass effect, or hydrocephalus. Dictated by: Alonso Candelario MD The radiology attending physician has personally reviewed this study, and had reviewed and/or edited this written report and agrees with it. Electronically signed by: Landen Perez M.D. Narrative 10/29/2023 10:19 AM HOB MILL OPERATOR EXAMINATION: CT head without contrast HISTORY: Subdural hematoma follow-up TECHNIQUE: CT of the head was performed with images acquired from skull base to vertex without intravenous contrast. COMPARISON: 10/23/2023 FINDINGS: No significant change in size of thin bilateral largely isodense subdural collections [...] bilateral maxillary sinuses. No fractures are identified. Procedure Note Landen Perez MD - 10/29/2023 EXAMINATION: CT head without contrast HISTORY: Subdural hematoma follow-up TECHNIQUE: CT of the head was performed with images acquired from skull base to vertex without intravenous contrast. COMPARISON: 10/23/2023 FINDINGS: No significant change in size of thin bilateral largely isodense subdural collections [...] bilateral maxillary sinuses. No fractures are identified. IMPRESSION: 1. Thin bilateral subdural collections along the cerebral convexities, not significantly changed in size, which may represent some combination of subdural hemorrhage and hygromas. 2. No new acute intracranial hemorrhage, significant mass effect, or hydrocephalus. Dictated by: Alonso Candelario MD The radiology attending physician has personally reviewed this study, and had reviewed and/or edited this written report and agrees with it. Electronically signed by: Landen Perez M.D. Kasey Rutledge NP [facility] CT PROCEDURES Final Result * eGFR (10/27/2023 11:32 PM HOB MILL OPERATOR) eGFR >90 >=60 mL/min/1. 73 m2 [facility] [...] interpretive data was last reviewed 2021. Blood 10/27/2023 11:3 2 PM HOB MILL OPERATOR 10/28/2023 12:27 AM HOB MILL OPERATOR Tia Nolan CROWN CERAMIST LAB BLOOD ORDERABLES F inal Result [facility] [place] [address] * Differential, auto (10/27/2023 11:32 PM HOB MILL OPERATOR) Pathologist [facility] Neutrophil abs 3.9 1.5 - 6.5 K/cumm [facility] Imm gran abs 0.1 0.0 - 0.1 K/cumm [facility] Lymphocyte abs 1.2 0.8 - 3.3 K/cumm [facility] Monocyte abs 0.6 0.2 - 0.8 K/cumm [facility] Eosinophil abs 0.2 0.0 - 0.5 K/cumm [facility] Basophil abs 0.0 0.0 - 0.1 K/cumm [facility] Neutrophil pct 65.9 % [facility] Comment: Interpretive Data Percent cell count reference ranges are not reported, since discordance with absolute values may lead to misinterpretation of CBC data. Current Interpretive Data was last revised on 2018. Imm gran pct 0.8 % [facility] Comment: Interpretive Data Percent cell count reference ranges are not reported, since discordance with absolute values may lead to misinterpretation of CBC data. Current Interpretive Data was last revised on 2018. Lymphocyte pct 20.3 % [facility] Comment: Interpretive Data Percent cell count reference ranges are not reported, since discordance with absolute values may lead to misinterpretation of CBC data. Current Interpretive Data was last revised on 2018. Monocyte pct 9.6 % [facility] Comment: Interpretive Data Percent cell count reference ranges are not reported, since discordance with absolute values may lead to misinterpretation of CBC data. Current Interpretive Data was last revised on 2018. Eosinophil pct 3.2 % [facility] Comment: Interpretive Data Percent cell count reference ranges are not reported, since discordance with absolute values may lead to misinterpretation of CBC data. Current Interpretive Data was last revised on 2018. Basophil pct 0.2 % [facility] Comment: Interpretive Data Percent cell count reference ranges are not reported, since discordance with absolute values may lead to misinterpretation of CBC data. Current Interpretive Data was last revised on 2018. Blood 10/27/2023 11:3 2 PM HOB MILL OPERATOR 10/28/2023 12:26 AM HOB MILL OPERATOR us Tia Nolan [facility]ER[facility] LAB BLOOD ORDERABLES F inal Result [facility] [place] [address] * (ABNORMAL) CBC with auto differential (10/27/2023 11:32 PM HOB MILL OPERATOR) WBC 6.0 3.8 - 9.9 K/cumm [facility] Hgb 8.6(L) 13.0 - 17.5 g/dL [facility] Hct 25.3(L) 38.9 - 50.3 % [facility] Plt 295 150 - 400 K/cumm [facility] MPV 11.2 9.1 - 12.3 fL [facility] RBC 2.78(L) 4.30 - 5.80 M/cumm [facility] MCV 91.0 81.3 - 96.4 fL [facility] MCH 30.9 27.1 - 33.3 pg [facility] MCHC 34.0 32.3 - 35.7 g/dL [facility] RDW CV 13.2 11.1 - 14.9 % [facility] RDW SD 44.2 35.7 - 48.1 fL [facility] NRBC abs 0.00 0.00 - 0.01 K/cumm [facility] Blood 10/27/2023 11:3 2 PM HOB MILL OPERATOR 10/28/2023 12:26 AM HOB MILL OPERATOR Tia Nolan CR[facility]ER[facility] LAB BLOOD ORDERABLES F inal Result [facility] [place] [address] * (ABNORMAL) Basic metabolic panel (10/27/2023 11:32 PM HOB MILL OPERATOR) Pathologist [facility] Sodium 135 135 - 145 mmol/L [facility] Potassium, pl 3.7 3.3 - 4.9 mmol/L [facility] Chloride 103 97 - 110 mmol/L [facility] CO2 26 22 - 32 mmol/L [facility] Anion gap 6 2 - 15 mmol/L [facility] BUN 11 6 - 25 mg/dL [facility] Creatinine 0.88 0.80 - 1.30 mg/dL [facility] Glucose 108 70 - 199 mg/dL [facility] Comment: Interpretive Data Fasting glucose [...] 2022. Calcium 8.0(L) 8.5 - 10.3 mg/dL [facility] Blood 10/27/2023 11:3 2 PM HOB MILL OPERATOR 10/28/2023 12:27 AM HOB MILL OPERATOR Tia Nolan CR[facility]ER[facility] LAB BLOOD ORDERABLES F inal Result Performing Organization Address City/[facility] Co de Phone Number [facility] [place] [address] * Phosphorus (10/27/2023 4:37 AM HOB MILL OPERATOR) Pathologist [facility] Phosphorus, pl 2.5 2.3 - 4.5 mg/dL [facility] Blood 10/27/2023 4:37 AM HOB MILL OPERATOR 10/27/2023 4:59 AM HOB MILL OPERATOR Tia Nolan CR[facility]ER[facility]IST LAB BLOOD ORDERABLES F inal Result Performing Organization Address [facility] Co de Phone Number [facility] [place] [address] * Magnesium (10/27/2023 4:37 AM HOB MILL OPERATOR) Pathologist [facility] Magnesium 1.9 1.4 - 2.5 mg/dL [facility] Blood 10/27/2023 4:37 AM HOB MILL OPERATOR 10/27/2023 4:59 AM HOB MILL OPERATOR Tia Nolan CR[facility]ER[facility] LAB BLOOD ORDERABLES F inal Result Performing Organization Address City/[facility] [place] [address] * (ABNORMAL) CBC without differential (10/27/2023 4:37 AM HOB MILL OPERATOR) Pathologist [facility] WBC 7.1 3.8 - 9.9 K/cumm [facility] Hgb 9.1(L) 13.0 - 17.5 g/dL [facility] Hct 26.1(L) 38.9 - 50.3 % [facility] Plt 291 150 - 400 K/cumm [facility] MPV 11.0 9.1 - 12.3 fL [facility] RBC 2.93(L) 4.30 - 5.80 M/cumm [facility] MCV 89.1 81.3 - 96.4 fL [facility] MCH 31.1 27.1 - 33.3 pg [facility] MCHC 34.9 32.3 - 35.7 g/dL [facility] RDW CV 13.4 11.1 - 14.9 % [facility] RDW SD 43.7 35.7 - 48.1 fL [facility] NRBC abs 0.00 0.00 - 0.01 K/cumm [facility] Blood 10/27/2023 4:37 AM HOB MILL OPERATOR 10/27/2023 5:07 AM HOB MILL OPERATOR Narrative [facility] - 10/27/2023 5:17 AM HOB MILL OPERATOR While on heparin infusion Tia Nolan CROWN CERAMIST LAB BLOOD ORDERABLES F inal Result Performing Organization Address City/[facility]/ZIP Co de Phone Number [facility] [place] [address] * Transfuse RBC (10/26/2023 10:32 PM HOB MILL OPERATOR) Blood Hayder Vu Jr., MD BLOOD TRANSFUSION O RDERABLES Final Result [facility] [place] [address] * Transfuse RBC: 1 Units (10/26/2023 10:32 PM HOB MILL OPERATOR) Blood Hayder Vu Jr., MD BLOOD TRANSFUSION O RDERABLES Final Result * eGFR (10/26/2023 8:07 PM HOB MILL OPERATOR) [facility] eGFR >90 >=60 mL/min/1. 73 m2 [facility] Comment: Interpretive Data Reference Interval Normal [...] interpretive data was last reviewed 2021. Blood 10/26/2023 8:07 PM HOB MILL OPERATOR 10/26/2023 9:01 PM HOB MILL OPERATOR us Tia Nolan NP LAB BLOOD ORDERABLES F inal Result [facility] Department [place] [address] * (ABNORMAL) Differential, auto (10/26/2023 8:07 PM HOB MILL OPERATOR) Neutrophil abs 6.7(H) 1.5 - 6.5 K/cumm [facility] Imm gran abs 0.1 0.0 - 0.1 K/cumm [facility] Lymphocyte abs 1.1 0.8 - 3.3 K/cumm [facility] Monocyte abs 0.7 0.2 - 0.8 K/cumm [facility] Eosinophil abs 0.1 0.0 - 0.5 K/cumm [facility] Basophil abs 0.0 0.0 - 0.1 K/cumm [facility] Neutrophil pct 77.6 % [facility] Comment: Interpretive Data Percent cell count reference ranges are not reported, since discordance with absolute values may lead to misinterpretation of CBC data. Current Interpretive Data was last revised on 2018. Imm gran pct 0.6 % [facility] Comment: Interpretive Data Percent cell count reference ranges are not reported, since discordance with absolute values may lead to misinterpretation of CBC data. Current Interpretive Data was last revised on 2018. Lymphocyte pct 12.5 % [facility] Comment: Interpretive Data Percent cell count reference ranges are not reported, since discordance with absolute values may lead to misinterpretation of CBC data. Current Interpretive Data was last revised on 2018. Monocyte pct 7.8 % [facility] Comment: Interpretive Data Percent cell count reference ranges are not reported, since discordance with absolute values may lead to misinterpretation of CBC data. Current Interpretive Data was last revised on 2018. Eosinophil pct 1.0 % [facility] Comment: Interpretive Data Percent cell count reference ranges are not reported, since discordance with absolute values may lead to misinterpretation of CBC data. Current Interpretive Data was last revised on 2018. Basophil pct 0.5 % [facility] Comment: Interpretive Data Percent cell count reference ranges are not reported, since discordance with absolute values may lead to misinterpretation of CBC data. Current Interpretive Data was last revised on 2018. Blood 10/26/2023 8:07 PM HOB MILL OPERATOR 10/26/2023 9:00 PM HOB MILL OPERATOR us Tia Nolan NP LAB BLOOD ORDERABLES F inal Result [facility] [place] [address] * (ABNORMAL) CBC with auto differential (10/26/2023 8:07 PM HOB MILL OPERATOR) [facility] WBC 8.6 3.8 - 9.9 K/cumm [facility] Hgb 9.5(L) 13.0 - 17.5 g/dL [facility] Hct 27.6(L) 38.9 - 50.3 % [facility] Plt 313 150 - 400 K/cumm [facility] MPV 11.2 9.1 - 12.3 fL [facility] RBC 3.08(L) 4.30 - 5.80 M/cumm [facility] MCV 89.6 81.3 - 96.4 fL [facility] MCH 30.8 27.1 - 33.3 pg [facility] MCHC 34.4 32.3 - 35.7 g/dL [facility] RDW CV 13.3 11.1 - 14.9 % [facility] RDW SD 43.5 35.7 - 48.1 fL [facility] NRBC abs 0.00 0.00 - 0.01 K/cumm [facility] Blood 10/26/2023 8:07 PM HOB MILL OPERATOR 10/26/2023 9:00 PM HOB MILL OPERATOR us Tia Nolan CROWN CERAMIST LAB BLOOD ORDERABLES F inal Result [facility] [place] [address] * (ABNORMAL) Basic metabolic panel (10/26/2023 8:07 PM HOB MILL OPERATOR) [facility] Sodium 137 135 - 145 mmol/L [facility] Potassium, pl 3.5 3.3 - 4.9 mmol/L [facility] Chloride 104 97 - 110 mmol/L [facility] CO2 26 22 - 32 mmol/L [facility] Anion gap 7 2 - 15 mmol/L [facility] BUN 11 6 - 25 mg/dL [facility] Creatinine 0.86 0.80 - 1.30 mg/dL [facility] Glucose 132 70 - 199 mg/dL [facility] Comment: Interpretive Data Fasting glucose [...] 2022. Calcium 8.2(L) 8.5 - 10.3 mg/dL [facility] Blood 10/26/2023 8:07 PM HOB MILL OPERATOR 10/26/2023 9:01 PM HOB MILL OPERATOR us Tia Nolan CROWN CERAMIST LAB BLOOD ORDERABLES F inal Result [facility] [place] [address] * eGFR (10/26/2023 5:28 PM HOB MILL OPERATOR) eGFR 90 >=60 mL/min/1. 73 m2 [facility] Comment: Interpretive Data Reference Interval [...] interpretive data was last reviewed 2021. Blood 10/26/2023 5:28 PM HOB MILL OPERATOR 10/26/2023 6:00 PM HOB MILL OPERATOR Kasey Rutledge NP LAB BLOOD ORDERABLES Final Resu lt Performing Organization Address [facility] Co de Phone Number [facility] [place] [address] * Creatinine (10/26/2023 5:28 PM HOB MILL OPERATOR) Creatinine 0.91 0.80 - 1.30 mg/dL [facility] Blood 10/26/2023 5:28 PM HOB MILL OPERATOR 10/26/2023 6:00 PM HOB MILL OPERATOR Narrative [facility] - 10/26/2023 6:31 PM HOB MILL OPERATOR Baseline prior to enoxaparin initiation. Kasey Rutledge NP LAB BLOOD ORDERABLES Final Resu Performing Organization Address [facility] de Phone Number [facility] [place] [address] * (ABNORMAL) aPTT (10/26/2023 5:28 PM HOB MILL OPERATOR) aPTT 64(H) 28 - 38 sec [facility] Comment: Interpretive Data Heparin therapeutic range: 66.0 - 100.0 seconds. Range based on correlation with therapeutic heparin activity range of 0.3 - 0.7 Units/mL. Current interpretive data was last revised on 2023. Blood 10/26/2023 5:28 PM HOB MILL OPERATOR 10/26/2023 6:09 PM HOB MILL OPERATOR Narrative [facility] - 10/26/2023 6:18 PM HOB MILL OPERATOR Baseline prior to enoxaparin initiation. Kasey Rutledge NP LAB BLOOD ORDERABLES Final Resu lt [facility] [place] [address] * (ABNORMAL) CBC without differential (10/26/2023 5:28 PM HOB MILL OPERATOR) WBC 9.1 3.8 - 9.9 K/cumm [facility] Hgb 9.6(L) 13.0 - 17.5 g/dL [facility] Hct 28.3(L) 38.9 - 50.3 % [facility] Plt 321 150 - 400 K/cumm [facility] MPV 11.4 9.1 - 12.3 fL [facility] RBC 3.16(L) 4.30 - 5.80 M/cumm [facility] MCV 89.6 81.3 - 96.4 fL [facility] MCH 30.4 27.1 - 33.3 pg [facility] MCHC 33.9 32.3 - 35.7 g/dL [facility] RDW CV 13.2 11.1 - 14.9 % [facility] RDW SD 43.6 35.7 - 48.1 fL [facility] NRBC abs 0.00 0.00 - 0.01 K/cumm [facility] Blood 10/26/2023 5:28 PM HOB MILL OPERATOR 10/26/2023 6:01 PM HOB MILL OPERATOR Narrative [facility] - 10/26/2023 6:09 PM HOB MILL OPERATOR Baseline prior to enoxaparin initiation. Kasey Rutledge NP LAB BLOOD ORDERABLES Final Resu lt [facility] [place] [address] * Protime-INR (10/26/2023 5:28 PM HOB MILL OPERATOR) PT 13.2 10.3 - 13.7 sec [facility] INR 1.16 0.90 - 1.20 [facility] Comment: Interpretive data Oral anticoagulant therapeutic ranges: Venous thromboembolism prophylaxis or treatment: 2.0-3.0 CARDIOLOGY Standard range: 2.0-3.0 High-intensity range: 2.5-3.5 Refer to indication-specific guidelines for appropriate target ranges for prosthetic heart valve replacement. Current interpretive data was last revised on 2019. Blood 10/26/2023 5:28 PM HOB MILL OPERATOR 10/26/2023 6:09 PM HOB MILL OPERATOR Narrative [facility] - 10/26/2023 6:18 PM HOB MILL OPERATOR Baseline prior to enoxaparin initiation. us Kasey Rutledge NP LAB BLOOD ORDERABLES Final Resu lt [facility] [place] [address] * (ABNORMAL) Differential, auto (10/26/2023 2:43 PM HOB MILL OPERATOR) Neutrophil abs 8.1(H) 1.5 - 6.5 K/cumm [facility] Imm gran abs 0.1 0.0 - 0.1 K/cumm [facility] Lymphocyte abs 0.9 0.8 - 3.3 K/cumm [facility] Monocyte abs 0.7 0.2 - 0.8 K/cumm [facility] Eosinophil abs 0.2 0.0 - 0.5 K/cumm [facility] Basophil abs 0.0 0.0 - 0.1 K/cumm [facility] Neutrophil pct 81.9 % [facility] Comment: Interpretive Data Percent cell count reference ranges are not reported, since discordance with absolute values may lead to misinterpretation of CBC data. Current Interpretive Data was last revised on 2018. Imm gran pct 0.6 % [facility] Comment: Interpretive Data Percent cell count reference ranges are not reported, since discordance with absolute values may lead to misinterpretation of CBC data. Current Interpretive Data was last revised on 2018. Lymphocyte pct 9.0 % [facility] Comment: Interpretive Data Percent cell count reference ranges are not reported, since discordance with absolute values may lead to misinterpretation of CBC data. Current Interpretive Data was last revised on 2018. Monocyte pct 6.6 % [facility] Comment: Interpretive Data Percent cell count reference ranges are not reported, since discordance with absolute values may lead to misinterpretation of CBC data. Current Interpretive Data was last revised on 2018. Eosinophil pct 1.5 % [facility] Comment: Interpretive Data Percent cell count reference ranges are not reported, since discordance with absolute values may lead to misinterpretation of CBC data. Current Interpretive Data was last revised on 2018. Basophil pct 0.4 % [facility] Comment: Interpretive Data Percent cell count reference ranges are not reported, since discordance with absolute values may lead to misinterpretation of CBC data. Current Interpretive Data was last revised on 2018. Blood 10/26/2023 2:43 PM HOB MILL OPERATOR 10/26/2023 2:56 PM HOB MILL OPERATOR us Kasey Rutledge CROWN CERAMIST LAB BLOOD ORDERABLES Final Resu lt [facility] [place] [address] * (ABNORMAL) CBC with auto differential (10/26/2023 2:43 PM HOB MILL OPERATOR) WBC 9.9 3.8 - 9.9 K/cumm [facility] Hgb 9.3(L) 13.0 - 17.5 g/dL [facility] Hct 27.2(L) 38.9 - 50.3 % [facility] Plt 310 150 - 400 K/cumm [facility] MPV 11.0 9.1 - 12.3 fL [facility] RBC 3.01(L) 4.30 - 5.80 M/cumm [facility] MCV 90.4 81.3 - 96.4 fL [facility] MCH 30.9 27.1 - 33.3 pg [facility] MCHC 34.2 32.3 - 35.7 g/dL [facility] RDW CV 13.0 11.1 - 14.9 % [facility] RDW SD 43.3 35.7 - 48.1 fL [facility] NRBC abs 0.00 0.00 - 0.01 K/cumm [facility] Blood 10/26/2023 2:43 PM HOB MILL OPERATOR 10/26/2023 2:56 PM HOB MILL OPERATOR Narrative [facility] - 10/26/2023 3:05 PM HOB MILL OPERATOR Please draw one hour after second unit of PRBC's Kasey Rutledge CROWN CERAMIST LAB BLOOD ORDERABLES Final Resu lt Performing Organization Address [facility] de Phone Number [facility] [place] [address] * Transfuse RBC (10/26/2023 1:41 PM HOB MILL OPERATOR) Blood Hayder Vu Jr., MD BLOOD TRANSFUSION O RDERABLES Final Result Performing Organization Address [facility] de Phone Number [facility] [place] [address] * Transfuse RBC: 1 Units (10/26/2023 1:41 PM HOB MILL OPERATOR) Blood Hayder Vu Jr., MD BLOOD TRANSFUSION O RDERABLES Final Result * (ABNORMAL) aPTT (10/26/2023 11:09 AM HOB MILL OPERATOR) aPTT 74(H) 28 - 38 sec [facility] Comment: Interpretive Data Heparin therapeutic range: 66.0 - 100.0 seconds. Range based on correlation with therapeutic heparin activity range of 0.3 - 0.7 Units/mL. Current interpretive data was last revised on 2023. Blood 10/26/2023 11:0 9 AM HOB MILL OPERATOR 10/26/2023 11:38 AM HOB MILL OPERATOR Ca Ruano MD PhD LAB BLOOD ORDERABLES Final Result Performing Organization Address [facility] Co de Phone Number [facility] [place] [address] * Prepare RBC: 1 Units (10/26/2023 4:46 AM HOB MILL OPERATOR) Product code [id number] Unit Number [id number] [facility] Product Blood Type OPOS [facility] Dispense Status PRESUMED TRANSFUSED [facility] Blood 10/26/2023 4:46 AM HOB MILL OPERATOR 10/26/2023 4:45 AM HOB MILL OPERATOR Narrative [facility] - 10/26/2023 4:02 PM HOB MILL OPERATOR Are special requirements needed? (All products are leukoreduced and CMV- safe)- >No Date required:-20231026 LRRBC # of [id number] Reasons:-Active bleeding, Hgb <8 g/dL} Hayder Vu Jr., MD BLOOD BANK PRODUCT ORDERABLES Final Result Performing Organization Address [facility] de Phone Number [facility] [place] [address] * Prepare RBC: 1 Units (10/26/2023 3:03 AM HOB MILL OPERATOR) Product code [id number] Unit Number [id number] [facility] Product Blood Type OPOS [facility] Dispense Status PRESUMED TRANSFUSED [facility] Blood 10/26/2023 3:03 AM HOB MILL OPERATOR 10/26/2023 3:03 AM HOB MILL OPERATOR Narrative [facility] - 10/26/2023 4:01 PM HOB MILL OPERATOR Are special requirements needed? (All products are leukoreduced and CMV- safe)- >No Date required:-20231026 LRRBC # of [id number] Reasons:-Hgb <7 g/dL} Hayder Vu Jr., MD BLOOD BANK PRODUCT ORDERABLES Final Result Performing Organization Address [facility] Co de Phone Number [facility] [place] [address] * (ABNORMAL) aPTT (10/26/2023 2:21 AM HOB MILL OPERATOR) Pathologist [facility] aPTT 58(H) 28 - 38 sec [facility] Comment: Interpretive Data Heparin therapeutic range: 66.0 - 100.0 seconds. Range based on correlation with therapeutic heparin activity range of 0.3 - 0.7 Units/mL. Current interpretive data was last revised on 2023. Blood 10/26/2023 2:21 AM HOB MILL OPERATOR 10/26/2023 2:32 AM HOB MILL OPERATOR Narrative [facility] - 10/26/2023 2:54 AM HOB MILL OPERATOR Draw STAT PTT 6 hrs after initiation of heparin infusion, draw STAT PTT 6 hours after each dose change, and every 6 hours until 2 consecutive PTTs are within therapeutic range. Once two consecutive PTT's are therapeutic (66-100 seconds), then draw PTT every AM until heparin is discontinued. us Hayder Vu Jr., MD LAB [place]LOOD [place] [address] * Type and screen (10/26/2023 2:21 AM HOB MILL OPERATOR) Pathologist [facility] Jigna, indirect Negative ABO Rh O Positive [facility] Blood 10/26/2023 2:21 AM HOB MILL OPERATOR 10/26/2023 2:32 AM HOB MILL OPERATOR Narrative [facility] - 10/26/2023 3:20 AM HOB MILL OPERATOR Has the patient had Daratumumab or Isatuximab in the past 6 months?->Unknown us Tia Nolan NP LAB BLOOD BANK TEST [place] [address] * (ABNORMAL) CBC without differential (10/26/2023 2:21 AM HOB MILL OPERATOR) [facility] WBC 9.0 3.8 - 9.9 K/cumm [facility] Hgb 6.7(L) 13.0 - 17.5 g/dL [facility] Hct 19.6(L) 38.9 - 50.3 % [facility] Plt 297 150 - 400 K/cumm [facility] MPV 10.9 9.1 - 12.3 fL [facility] RBC 2.15(L) 4.30 - 5.80 M/cumm [facility] MCV 91.2 81.3 - 96.4 fL [facility] MCH 31.2 27.1 - 33.3 pg [facility] MCHC 34.2 32.3 - 35.7 g/dL [facility] RDW CV 12.5 11.1 - 14.9 % [facility] RDW SD 41.9 35.7 - 48.1 fL [facility] NRBC abs 0.00 0.00 - 0.01 K/cumm [facility] Blood 10/26/2023 2:21 AM HOB MILL OPERATOR 10/26/2023 2:40 AM HOB MILL OPERATOR Tia Nolan CROWN CERAMIST LAB BLOOD ORDERABLES F inal Result Performing Organization Address [facility] Co de Phone Number [facility] [place] [address] * Phosphorus (10/26/2023 2:21 AM HOB MILL OPERATOR) [facility] Phosphorus, pl 2.3 2.3 - 4.5 mg/dL [facility] Blood 10/26/2023 2:21 AM HOB MILL OPERATOR 10/26/2023 2:40 AM HOB MILL OPERATOR Tia Nolan CROWN CERAMIST LAB BLOOD ORDERABLES F inal Result Performing Organization Address [facility] Co de Phone Number [facility] [place] [address] * Magnesium (10/26/2023 2:21 AM HOB MILL OPERATOR) Magnesium 1.8 1.4 - 2.5 mg/dL [facility] Blood 10/26/2023 2:21 AM HOB MILL OPERATOR 10/26/2023 2:40 AM HOB MILL OPERATOR Tia Nolan CROWN CERAMIST LAB BLOOD ORDERABLES F inal Result Performing Organization Address [facility] Co de Phone Number [facility] [place] [address] * Potassium, whole blood (10/25/2023 10:11 PM HOB MILL OPERATOR) Potassium, bld 3.5 3.3 - 4.9 mmol/L [facility] Blood 10/25/2023 10:1 1 PM HOB MILL OPERATOR 10/25/2023 10:19 PM HOB MILL OPERATOR Tia Nolan CROWN CERAMIST LAB BLOOD ORDERABLES F inal Result Performing Organization Address [facility] de Phone Number [facility] [place] [address] * Critical Care (10/25/2023 9:09 PM HOB MILL OPERATOR) Narrative Wilder Arceo Jr., MD - 10/25/2023 9:09 PM HOB MILL OPERATOR Tia Nolan NP ? 10/26/2023 12:17 AM Critical Care Performed by: Tia Nolan NP Authorized by: Tia Nolan NP ?? CRITICAL CARE: ??Team: ??SICU BLUE ??Shift: ??PM ??Level of Billing: ??Subsequent Hospital Visit Level 3 ??My time spent with this patient was 65 minutes: Critical Provider Statement: I have seen and examined the patient on this day of service. I have reviewed and confirmed the history, physical exam, laboratory, and radiographic data as documented in the ICU note. I have reviewed and discussed my treatment plan with the patient's team and other medical/telesales consultant staff. This time was in addition to and separate from care provided by other practitioners on this day of service. ? I spent time reviewing and interpreting data from bedside monitors, laboratory results, and imaging, I spent time discussing the management of this critically ill patient with consultants and the medical staff and I spent time documenting in the medical record us Tia Nolan CROWN CERAMIST IN CLINIC/BEDSIDE JOSE PRUITT Final Result * eGFR (10/25/2023 8:41 PM HOB MILL OPERATOR) [facility] eGFR >90 >=60 mL/min/1. 73 m2 [facility] Comment: Interpretive Data Reference Interval Normal [...] interpretive data was last reviewed 2021. Blood 10/25/2023 8:41 PM HOB MILL OPERATOR 10/25/2023 8:58 PM HOB MILL OPERATOR us Oneyda Foley NP LAB BLOOD ORDERABLES Final Res ult [facility] [place] [address] * (ABNORMAL) Differential, auto (10/25/2023 8:41 PM HOB MILL OPERATOR) Neutrophil abs 7.3(H) 1.5 - 6.5 K/cumm [facility] Imm gran abs 0.1 0.0 - 0.1 K/cumm [facility] Lymphocyte abs 1.6 0.8 - 3.3 K/cumm [facility] Monocyte abs 0.8 0.2 - 0.8 K/cumm [facility] Eosinophil abs 0.3 0.0 - 0.5 K/cumm [facility] Basophil abs 0.0 0.0 - 0.1 K/cumm [facility] Neutrophil pct 72.9 % [facility] Comment: Interpretive Data Percent cell count reference ranges are not reported, since discordance with absolute values may lead to misinterpretation of CBC data. Current Interpretive Data was last revised on 2018. Imm gran pct 0.5 % [facility] Comment: Interpretive Data Percent cell count reference ranges are not reported, since discordance with absolute values may lead to misinterpretation of CBC data. Current Interpretive Data was last revised on 2018. Lymphocyte pct 15.7 % [facility] Comment: Interpretive Data Percent cell count reference ranges are not reported, since discordance with absolute values may lead to misinterpretation of CBC data. Current Interpretive Data was last revised on 2018. Monocyte pct 7.8 % [facility] Comment: Interpretive Data Percent cell count reference ranges are not reported, since discordance with absolute values may lead to misinterpretation of CBC data. Current Interpretive Data was last revised on 2018. Eosinophil pct 2.7 % [facility] Comment: Interpretive Data Percent cell count reference ranges are not reported, since discordance with absolute values may lead to misinterpretation of CBC data. Current Interpretive Data was last revised on 2018. Basophil pct 0.4 % [facility] Comment: Interpretive Data Percent cell count reference ranges are not reported, since discordance with absolute values may lead to misinterpretation of CBC data. Current Interpretive Data was last revised on 2018. Blood 10/25/2023 8:41 PM HOB MILL OPERATOR 10/25/2023 8:58 PM HOB MILL OPERATOR us Oneyda Foley CROWN CERAMIST LAB BLOOD ORDERABLES Final Res ult Performing Organization Address [facility] Co de Phone Number [facility] Department [place] [address] * (ABNORMAL) CBC with auto differential (10/25/2023 8:41 PM HOB MILL OPERATOR) Pathologist [facility] WBC 10.0(H) 3.8 - 9.9 K/cumm [facility] Hgb 7.0(L) 13.0 - 17.5 g/dL [facility] Hct 19.7(L) 38.9 - 50.3 % [facility] Plt 320 150 - 400 K/cumm [facility] MPV 11.6 9.1 - 12.3 fL [facility] RBC 2.14(L) 4.30 - 5.80 M/cumm [facility] MCV 92.1 81.3 - 96.4 fL [facility] MCH 32.7 27.1 - 33.3 pg [facility] MCHC 35.5 32.3 - 35.7 g/dL [facility] RDW CV 12.6 11.1 - 14.9 % [facility] RDW SD 42.2 35.7 - 48.1 fL [facility] NRBC abs 0.00 0.00 - 0.01 K/cumm [facility] Blood 10/25/2023 8:41 PM HOB MILL OPERATOR 10/25/2023 8:58 PM HOB MILL OPERATOR us Tia Nolan CROWN CERAMIST LAB BLOOD ORDERABLES F inal Result Performing Organization Address [facility]/ZIP Co de Phone Number [facility] Department [place] [address] * (ABNORMAL) Basic metabolic panel (10/25/2023 8:41 PM HOB MILL OPERATOR) Pathologist [facility] Sodium 133(L) 135 - 145 mmol/L [facility] Potassium, pl See Comment 3.3 - 4.9 mmol/L [facility] Comment:Credited; Hemolyzed Specimen Chloride 103 97 - 110 mmol/L [facility] CO2 26 22 - 32 mmol/L [facility] Anion gap 4 2 - 15 mmol/L [facility] BUN 13 6 - 25 mg/dL [facility] Creatinine 0.86 0.80 - 1.30 mg/dL [facility] Glucose 157 70 - 199 mg/dL [facility] Comment: Interpretive Data Fasting glucose [...] interpretive data was last revised 2022. Calcium 7.8(L) 8.5 - 10.3 mg/dL [facility] Blood 10/25/2023 8:41 PM HOB MILL OPERATOR 10/25/2023 8:58 PM HOB MILL OPERATOR us Tia Nolan CROWN CERAMIST LAB BLOOD ORDERABLES F inal Result [facility] Department [place] [address] * POCT glucose (10/25/2023 7:22 PM HOB MILL OPERATOR) Glucose, POC 162 70 - 199 mg/dL [facility] Blood 10/25/2023 7:22 PM HOB MILL OPERATOR 10/25/2023 7:22 PM HOB MILL OPERATOR us Hayder Vu Jr., MD LAB POCT ORDERABLES - DEVICE Final Result Performing Organization Address [facility]/ZIP Co de Phone Number [facility] [place] [address] * Critical Care (10/25/2023 6:45 PM HOB MILL OPERATOR) Narrative Luana Brady NP - 10/25/2023 6:45 PM HOB MILL OPERATOR Luana Brady NP ? 10/25/2023 ??6:45 PM Critical Care Performed by: Luana Brady NP Authorized by: Luana Brady NP ?? CRITICAL CARE: ??Team: ??SICU BLUE ??Shift: ??AM ??Level of Billing: ??Subsequent Hospital Visit Level 3 ??My time spent with this patient was 75 minutes: Critical Provider Statement: I have seen and examined the patient on this day of service. I have reviewed and confirmed the history, physical exam, laboratory, and radiographic data as documented in the ICU note. I have reviewed and discussed my treatment plan with the patient's team and other medical/telesales consultant staff. This time was in addition to and separate from care provided by other practitioners on this day of service. ?? us Luana Brady NP IN CLINIC/BEDSIDE ORDERABLES Final Result * (ABNORMAL) aPTT (10/25/2023 4:59 PM HOB MILL OPERATOR) aPTT 62(H) 28 - 38 sec [facility] Comment: Interpretive Data Heparin therapeutic range: 66.0 - 100.0 seconds. Range based on correlation with therapeutic heparin activity range of 0.3 - 0.7 Units/mL. Current interpretive data was last revised on 2023. Blood 10/25/2023 4:59 PM HOB MILL OPERATOR 10/25/2023 5:12 PM HOB MILL OPERATOR Narrative [facility] - 10/25/2023 5:34 PM HOB MILL OPERATOR Draw STAT PTT 6 hrs after initiation of heparin infusion, draw STAT PTT 6 hours after each dose change, and every 6 hours until 2 consecutive PTTs are within therapeutic range. Once two consecutive PTT's are therapeutic (66-100 seconds), then draw PTT every AM until heparin is discontinued. us Hayder Vu Jr., MD LAB BLOOD ORDERABLE S Final Result [facility] Department [place] [address] * POCT glucose (10/25/2023 3:09 PM HOB MILL OPERATOR) Glucose, POC 118 70 - 199 mg/dL [facility] Blood 10/25/2023 3:09 PM HOB MILL OPERATOR 10/25/2023 3:09 PM HOB MILL OPERATOR us Hayder Vu Jr., MD LAB POCT ORDERABLES - DEVICE Final Result Performing Organization Address [facility] Co de Phone Number [facility] [place] [address] * MRI Brain Epilepsy W WO Contrast (10/25/2023 1:55 PM HOB MILL OPERATOR) Anatomical Region Laterality Modality Head and Neck N/A Magnetic Resonan ce 10/25/2023 2:57 PM HOB MILL OPERATOR Impressions 10/25/2023 3:42 PM HOB MILL OPERATOR 1. ??Thin bilateral convexity subdural hematomas, not significantly changed in size compared to the prior head CT. 2. ??Diffuse pachymeningeal thickening and enhancement likely related to recent lumbar surgery. 3. No MR evidence of abnormalities of neuronal migration. Dictated by: Patrick Guerra, The radiology attending physician has personally reviewed this study, and had reviewed and/or edited this written report and agrees with it. Electronically signed by: Francia Schmitz M.D. 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 TECHNIQUE: Multiplanar multi-weighted MRI of the brain and brainstem was performed without and with intravenous contrast using the seizure protocol. This included high resolution 3D T1-weighted and T2-FLAIR imaging and detailed T2-weighted imaging of the hippocampi and temporal lobes. COMPARISON: CT head 10/23/2023 FINDINGS: There are thin bilateral anterior convexity subdural hematomas measuring up to 3 mm in diameter, not significantly changed in size compared to prior head CT. There is also diffuse pachymeningeal thickening and enhancement which may be related to recent lumbar surgery. There is no evidence of heterotopia, vascular malformation, tumor, or infarct. The hippocampi are symmetric in size and signal. Mild white matter FLAIR hyperintensities are nonspecific but most likely represent sequela of chronic small vessel ischemic disease. The scalp and calvarium are normal. The superior sagittal sinus demonstrates normal venous flow. The corpus callosum is normal in shape and signal intensity. The posterior fossa is unremarkable. The pituitary and sella are normal. The brainstem and craniocervical junction are unremarkable. Diffusion weighted images reveal no hyperintensities to suggest acute cerebral infarction. Diffuse volume loss with mild associated ventricular enlargement. Small left maxillary sinus mucous retention cyst. The visualized portions of the mastoids are unremarkable. The orbits appear normal. Normal flow voids are demonstrated in the carotid arteries and basilar artery. Procedure Note Francia Ghotra MD - 10/25/2023 EXAMINATION: Magnetic resonance imaging (MRI) of the brain and brainstem without and with contrast HISTORY: Cardiac arrest and seizure after lumbar spine surgery. TECHNIQUE: Multiplanar multi-weighted MRI of the brain and brainstem was performed without and with intravenous contrast using the seizure protocol. This included high resolution 3D T1-weighted and T2-FLAIR imaging and detailed T2-weighted imaging of the hippocampi and temporal lobes. COMPARISON: CT head 10/23/2023 FINDINGS: There are thin bilateral anterior convexity subdural hematomas measuring up to 3 mm in diameter, not significantly changed in size compared to prior head CT. There is also diffuse pachymeningeal thickening and enhancement which may be related to recent lumbar surgery. There is no evidence of heterotopia, vascular malformation, tumor, or infarct. The hippocampi are symmetric in size and signal. Mild white matter FLAIR hyperintensities are nonspecific but most likely represent sequela of chronic small vessel ischemic disease. The scalp and calvarium are normal. The superior sagittal sinus demonstrates normal venous flow. The corpus callosum is normal in shape and signal intensity. The posterior fossa is unremarkable. The pituitary and sella are normal. The brainstem and craniocervical junction are unremarkable. Diffusion weighted images reveal no hyperintensities to suggest acute cerebral infarction. Diffuse volume loss with mild associated ventricular enlargement. Small left maxillary sinus mucous retention cyst. The visualized portions of the mastoids are unremarkable. The orbits appear normal. Normal flow voids are demonstrated in the carotid arteries and basilar artery. IMPRESSION: 1. Thin bilateral convexity subdural hematomas, not significantly changed in size compared to the prior head CT. 2. Diffuse pachymeningeal thickening and enhancement likely related to recent lumbar surgery. 3. No MR evidence of abnormalities of neuronal migration. Dictated by: Patrick Guerra DO The radiology attending physician has personally reviewed this study, and had reviewed and/or edited this written report and agrees with it. Electronically signed by: Francia Schmitz M.D. Hayder Vu Jr., MD IMG MRI PROCEDURES Final Result * POCT glucose (10/25/2023 10:57 AM HOB MILL OPERATOR) [facility] Glucose, POC 195 70 - 199 mg/dL [facility] Blood 10/25/2023 10:5 7 AM HOB MILL OPERATOR 10/25/2023 10:57 AM HOB MILL OPERATOR Hayder Vu Jr., MD LAB POCT ORDERABLES - DEVICE Final Result [facility] [place] [address] * (ABNORMAL) Differential, auto (10/25/2023 10:14 AM HOB MILL OPERATOR) [facility] Neutrophil abs 10.6(H) 1.5 - 6.5 K/cumm [facility] Imm gran abs 0.1 0.0 - 0.1 K/cumm [facility] Lymphocyte abs 1.5 0.8 - 3.3 K/cumm [facility] Monocyte abs 0.9(H) 0.2 - 0.8 K/cumm [facility] Eosinophil abs 0.2 0.0 - 0.5 K/cumm [facility] Basophil abs 0.1 0.0 - 0.1 K/cumm [facility] Neutrophil pct 79.5 % [facility] Comment: Interpretive Data Percent cell count reference ranges are not reported, since discordance with absolute values may lead to misinterpretation of CBC data. Current Interpretive Data was last revised on 2018. Imm gran pct 0.5 % [facility] Comment: Interpretive Data Percent cell count reference ranges are not reported, since discordance with absolute values may lead to misinterpretation of CBC data. Current Interpretive Data was last revised on 2018. Lymphocyte pct 11.3 % [facility] Comment: Interpretive Data Percent cell count reference ranges are not reported, since discordance with absolute values may lead to misinterpretation of CBC data. Current Interpretive Data was last revised on 2018. Monocyte pct 6.9 % [facility] Comment: Interpretive Data Percent cell count reference ranges are not reported, since discordance with absolute values may lead to misinterpretation of CBC data. Current Interpretive Data was last revised on 2018. Eosinophil pct 1.1 % [facility] Comment: Interpretive Data Percent cell count reference ranges are not reported, since discordance with absolute values may lead to misinterpretation of CBC data. Current Interpretive Data was last revised on 2018. Basophil pct 0.7 % [facility] Comment: Interpretive Data Percent cell count reference ranges are not reported, since discordance with absolute values may lead to misinterpretation of CBC data. Current Interpretive Data was last revised on 2018. Blood 10/25/2023 10:1 4 AM HOB MILL OPERATOR 10/25/2023 10:27 AM HOB MILL OPERATOR Hayder Vu Jr., MD LAB BLOOD ORDERABLE S Final Result [facility] [place] [address] * (ABNORMAL) aPTT (10/25/2023 10:14 AM HOB MILL OPERATOR) aPTT 60(H) 28 - 38 sec [facility] Comment: Interpretive Data Heparin therapeutic range: 66.0 - 100.0 seconds. Range based on correlation with therapeutic heparin activity range of 0.3 - 0.7 Units/mL. Current interpretive data was last revised on 2023. Blood 10/25/2023 10:1 4 AM HOB MILL OPERATOR 10/25/2023 10:27 AM HOB MILL OPERATOR Narrative [facility] - 10/25/2023 10:56 AM HOB MILL OPERATOR Draw STAT PTT 6 hrs after initiation of heparin infusion, draw STAT PTT 6 hours after each dose change, and every 6 hours until 2 consecutive PTTs are within therapeutic range. Once two consecutive PTT's are therapeutic (66-100 seconds), then draw PTT every AM until heparin is discontinued. us Hayder Vu Jr., MD LAB BLOOD ORDERABLE S Final Result [facility] [place] [address] * (ABNORMAL) CBC with auto differential (10/25/2023 10:14 AM HOB MILL OPERATOR) WBC 13.3(H) 3.8 - 9.9 K/cumm [facility] Hgb 8.2(L) 13.0 - 17.5 g/dL [facility] Hct 24.1(L) 38.9 - 50.3 % [facility] Plt 367 150 - 400 K/cumm [facility] MPV 11.0 9.1 - 12.3 fL [facility] RBC 2.57(L) 4.30 - 5.80 M/cumm [facility] MCV 93.8 81.3 - 96.4 fL [facility] MCH 31.9 27.1 - 33.3 pg [facility] MCHC 34.0 32.3 - 35.7 g/dL [facility] RDW CV 12.4 11.1 - 14.9 % [facility] RDW SD 43.0 35.7 - 48.1 fL [facility] NRBC abs 0.00 0.00 - 0.01 K/cumm [facility] Blood 10/25/2023 10:1 4 AM HOB MILL OPERATOR 10/25/2023 10:27 AM HOB MILL OPERATOR Hayder Vu Jr., MD LAB BLOOD ORDERABLE S Final Result [facility] [place] [address] * XR Chest 1 View (10/25/2023 9:52 AM HOB MILL OPERATOR) Anatomical Region Laterality Modality Body, Chest N/A Computed Radiogr aphy 10/25/2023 11:1 3 AM HOB MILL OPERATOR Impressions 10/25/2023 11:23 AM HOB MILL OPERATOR Comparison made to chest radiograph 10/22/2023 at 6:07 AM. ??No focal consolidation, pleural effusion, or pneumothorax. Unchanged elevation left hemidiaphragm. ??Bilateral rib fractures are better appreciated on prior CT. Dictated by: Alice Rios MD, PhD. The radiology attending physician has personally reviewed this study, and had reviewed and/or edited this written report and agrees with it. Electronically signed by: Keely Williamson M.D. Narrative 10/25/2023 11:23 AM HOB MILL OPERATOR EXAMINATION: 1 view chest radiograph Procedure Note Keely Williamson MD - 10/25/2023 EXAMINATION: 1 view chest radiograph IMPRESSION: Comparison made to chest radiograph 10/22/2023 at 6:07 AM. No focal consolidation, pleural effusion, or pneumothorax. Unchanged elevation left hemidiaphragm. Bilateral rib fractures are better appreciated on prior CT. Dictated by: Alice Rios MD, PhD. The radiology attending physician has personally reviewed this study, and had reviewed and/or edited this written report and agrees with it. Electronically signed by: Keely Williamson M.D. Hayder Vu Jr., MD IMG XR PROCEDURES F inal Result * POCT glucose (10/25/2023 6:58 AM HOB MILL OPERATOR) Glucose, POC 129 70 - 199 mg/dL [facility] Blood 10/25/2023 6:58 AM HOB MILL OPERATOR 10/25/2023 6:58 AM HOB MILL OPERATOR Hayder Vu Jr., MD LAB POCT ORDERABLES - DEVICE Final Result Performing Organization Address [facility] [facility] Co de Phone Number [facility] [place] [address] * POCT glucose (10/25/2023 3:44 AM HOB MILL OPERATOR) Glucose, POC 102 70 - 199 mg/dL [facility] Blood 10/25/2023 3:44 AM HOB MILL OPERATOR 10/25/2023 3:44 AM HOB MILL OPERATOR Hayder Vu Jr., MD LAB POCT ORDERABLES - DEVICE Final Result Performing Organization Address [facility] Phone Number [facility] [place] [address] * (ABNORMAL) aPTT (10/25/2023 3:14 AM HOB MILL OPERATOR) aPTT 47(H) 28 - 38 sec [facility] Comment: Interpretive Data Heparin therapeutic range: 66.0 - 100.0 seconds. Range based on correlation with therapeutic heparin activity range of 0.3 - 0.7 Units/mL. Current interpretive data was last revised on 2023. Blood 10/25/2023 3:14 AM HOB MILL OPERATOR 10/25/2023 3:25 AM HOB MILL OPERATOR Narrative [facility] - 10/25/2023 3:47 AM HOB MILL OPERATOR Draw STAT PTT 6 hrs after initiation of heparin infusion, draw STAT PTT 6 hours after each dose change, and every 6 hours until 2 consecutive PTTs are within therapeutic range. Once two consecutive PTT's are therapeutic (66-100 seconds), then draw PTT every AM until heparin is discontinued. us Hayder Vu Jr., MD LAB BLOOD ORDERABLE S Final Result Performing Organization Address [facility] Co de Phone Number [facility] [place] [address] * POCT glucose (10/24/2023 11:45 PM HOB MILL OPERATOR) Glucose, POC 141 70 - 199 mg/dL [facility] Blood 10/24/2023 11:4 5 PM HOB MILL OPERATOR 10/24/2023 11:45 PM HOB MILL OPERATOR Hayder Vu Jr., MD LAB POCT ORDERABLES - DEVICE Final Result [facility] [place] [address] * Critical Care (10/24/2023 11:00 PM HOB MILL OPERATOR) Narrative Wilder Arceo Jr., MD - 10/24/2023 11:00 PM HOB MILL OPERATOR Wilder Arceo Jr., MD ? 10/25/2023 12:47 AM Critical Care Performed by: Wilder Arceo Jr., MD Authorized by: Wilder Arceo Jr., MD ?? CRITICAL CARE: ??Team: ??SICU BLUE ??Shift: ??PM ??Level of Billing: ??Critical Care ??My time spent with this patient was 40 minutes: Critical Provider Statement: I have seen and examined the patient on this day of service. I have reviewed and confirmed the history, physical exam, laboratory and radiologic data as documented in the signed ICU note. I have reviewed and discussed my treatment plan with the ICU team and other medical/telesales consultant staff, making frequent assessments and decisions [...] life-threatening deterioration of the following conditions: ? Acute intracranial hemorrhage, Acute pain/acute postoperative pain and Seizure ?? [id number] mycardial infarction (Non-STEMI) and Cardiac arrest ?? Hypo- or Hyperglycemia ??This time was spent by me doing the following: ? Serial laboratory checks ?? Acute pain control, Frequent neurologic exams and Anti-epileptic therapy ?? Glycemic control ?? Initiation/monitoring/titration of anticoagulants ?? Empiric broad coverage antibiotics ?? I spent time reviewing and interpreting data from bedside monitors, laboratory results, and imaging, I spent time discussing the management of this critically ill patient with consultants and the medical staff and I spent time documenting in the medical record Wilder Arceo Jr., MD IN CLINIC/BEDSIDE ORDERABL ES Final Result * (ABNORMAL) Calcium, ionized (10/24/2023 9:11 PM HOB MILL OPERATOR) [facility] Calcium, Ionized 4.38(L) 4.50 - 5.10 mg/dL [facility] Blood 10/24/2023 9:11 PM HOB MILL OPERATOR 10/24/2023 9:18 PM HOB MILL OPERATOR Hayder Vu Jr., MD LAB BLOOD ORDERABLE S Final Result Performing Organization Address [facility] Co de Phone Number [facility] [place] [address] * POCT glucose (10/24/2023 7:42 PM HOB MILL OPERATOR) [facility] Glucose, POC 122 70 - 199 mg/dL [facility] Blood 10/24/2023 7:42 PM HOB MILL OPERATOR 10/24/2023 7:42 PM HOB MILL OPERATOR Hayder Vu Jr., MD LAB POCT ORDERABLES - DEVICE Final Result Performing Organization Address [facility] Co de Phone Number [facility] [place] [address] * (ABNORMAL) Basic metabolic panel (10/24/2023 7:06 PM HOB MILL OPERATOR) [facility] Sodium 136 135 - 145 mmol/L [facility] Potassium, pl 3.7 3.3 - 4.9 mmol/L [facility] Chloride 104 97 - 110 mmol/L [facility] CO2 25 22 - 32 mmol/L [facility] Anion gap 7 2 - 15 mmol/L [facility] BUN 13 6 - 25 mg/dL [facility] Creatinine 0.94 0.80 - 1.30 mg/dL [facility] Glucose 126 70 - 199 mg/dL [facility] Comment: Interpretive Data Fasting glucose [...] 2022. Calcium 8.1(L) 8.5 - 10.3 mg/dL [facility] Blood 10/24/2023 7:06 PM HOB MILL OPERATOR 10/24/2023 7:12 PM HOB MILL OPERATOR Hayder Vu Jr., MD LAB BLOOD ORDERABLE S Final Result [facility] [place] [address] * eGFR (10/24/2023 7:06 PM HOB MILL OPERATOR) eGFR 86 >=60 mL/min/1. 73 m2 [facility] Comment: Interpretive Data Reference Interval [...] interpretive data was last reviewed 2021. Blood 10/24/2023 7:06 PM HOB MILL OPERATOR 10/24/2023 7:16 PM HOB MILL OPERATOR us Hayder Vu Jr., MD LAB BLOOD ORDERABLE S Final Result [facility] [place] [address] * (ABNORMAL) Differential, auto (10/24/2023 7:06 PM HOB MILL OPERATOR) Neutrophil abs 10.4(H) 1.5 - 6.5 K/cumm [facility] Imm gran abs 0.1 0.0 - 0.1 K/cumm [facility] Lymphocyte abs 1.2 0.8 - 3.3 K/cumm [facility] Monocyte abs 0.9(H) 0.2 - 0.8 K/cumm [facility] Eosinophil abs 0.1 0.0 - 0.5 K/cumm [facility] Basophil abs 0.1 0.0 - 0.1 K/cumm [facility] Neutrophil pct 82.0 % [facility] Comment: Interpretive Data Percent cell count reference ranges are not reported, since discordance with absolute values may lead to misinterpretation of CBC data. Current Interpretive Data was last revised on 2018. Imm gran pct 0.5 % [facility] Comment: Interpretive Data Percent cell count reference ranges are not reported, since discordance with absolute values may lead to misinterpretation of CBC data. Current Interpretive Data was last revised on 2018. Lymphocyte pct 9.7 % [facility] Comment: Interpretive Data Percent cell count reference ranges are not reported, since discordance with absolute values may lead to misinterpretation of CBC data. Current Interpretive Data was last revised on 2018. Monocyte pct 6.9 % [facility] Comment: Interpretive Data Percent cell count reference ranges are not reported, since discordance with absolute values may lead to misinterpretation of CBC data. Current Interpretive Data was last revised on 2018. Eosinophil pct 0.4 % [facility] Comment: Interpretive Data Percent cell count reference ranges are not reported, since discordance with absolute values may lead to misinterpretation of CBC data. Current Interpretive Data was last revised on 2018. Basophil pct 0.5 % [facility] Comment: Interpretive Data Percent cell count reference ranges are not reported, since discordance with absolute values may lead to misinterpretation of CBC data. Current Interpretive Data was last revised on 2018. Blood 10/24/2023 7:06 PM HOB MILL OPERATOR 10/24/2023 7:16 PM HOB MILL OPERATOR Oneyda Foley [facility] LAB BLOOD ORDERABLES Final Res ult [facility] [place] [address] * Phosphorus (10/24/2023 7:06 PM HOB MILL OPERATOR) Phosphorus, pl 3.3 2.3 - 4.5 mg/dL [facility] Blood 10/24/2023 7:06 PM HOB MILL OPERATOR 10/24/2023 7:12 PM HOB MILL OPERATOR Tia Nolan [facility] LAB BLOOD ORDERABLES F inal Result [facility] [place] [address] * Magnesium (10/24/2023 7:06 PM HOB MILL OPERATOR) Magnesium 2.1 1.4 - 2.5 mg/dL [facility] Blood 10/24/2023 7:06 PM HOB MILL OPERATOR 10/24/2023 7:12 PM HOB MILL OPERATOR Tia Nolan [facility] LAB BLOOD ORDERABLES F inal Result Performing Organization Address [facility] Co de Phone Number [facility] [place] [address] * (ABNORMAL) CBC with auto differential (10/24/2023 7:06 PM HOB MILL OPERATOR) [facility] WBC 12.7(H) 3.8 - 9.9 K/cumm [facility] Hgb 7.6(L) 13.0 - 17.5 g/dL [facility] Hct 22.1(L) 38.9 - 50.3 % [facility] Plt 332 150 - 400 K/cumm [facility] MPV 10.8 9.1 - 12.3 fL [facility] RBC 2.42(L) 4.30 - 5.80 M/cumm [facility] MCV 91.3 81.3 - 96.4 fL [facility] MCH 31.4 27.1 - 33.3 pg [facility] MCHC 34.4 32.3 - 35.7 g/dL [facility] RDW CV 12.5 11.1 - 14.9 % [facility] RDW SD 42.5 35.7 - 48.1 fL [facility] NRBC abs 0.00 0.00 - 0.01 K/cumm [facility] Blood 10/24/2023 7:06 PM HOB MILL OPERATOR 10/24/2023 7:16 PM HOB MILL OPERATOR Tia Nolan [facility] LAB BLOOD ORDERABLES F inal Result Performing Organization Address City/[facility]/ZIP Co de Phone Number [facility] [place] [address] * aPTT (10/24/2023 7:06 PM HOB MILL OPERATOR) aPTT 35 28 - 38 sec [facility] Comment: Interpretive Data Heparin therapeutic range: 66.0 - 100.0 seconds. Range based on correlation with therapeutic heparin activity range of 0.3 - 0.7 Units/mL. Current interpretive data was last revised on 2023. Blood 10/24/2023 7:06 PM HOB MILL OPERATOR 10/24/2023 7:13 PM HOB MILL OPERATOR Oneyda Foley LAB BLOOD ORDERABLES Final Res ult Performing Organization Address [facility] de Phone Number [facility] [place] [address] * (ABNORMAL) Protime-INR (10/24/2023 7:06 PM HOB MILL OPERATOR) Pathologist [facility] PT 13.8(H) 10.3 - 13.7 sec [facility] INR 1.21(H) 0.90 - 1.20 [facility] Comment: Interpretive data Oral anticoagulant therapeutic ranges: Venous thromboembolism prophylaxis or treatment: 2.0-3.0 CARDIOLOGY Standard range: 2.0-3.0 High-intensity range: 2.5-3.5 Refer to indication-specific guidelines for appropriate target ranges for prosthetic heart valve replacement. Current interpretive data was last revised on 2019. Blood 10/24/2023 7:06 PM HOB MILL OPERATOR 10/24/2023 7:13 PM HOB MILL OPERATOR Oneyda Foley NP LAB BLOOD ORDERABLES Final Res ult Performing Organization Address City/[facility] Co de Phone Number [facility] [place] [address] * POCT glucose (10/24/2023 2:58 PM HOB MILL OPERATOR) Glucose, POC 122 70 - 199 mg/dL [facility] Blood 10/24/2023 2:58 PM HOB MILL OPERATOR 10/24/2023 2:58 PM HOB MILL OPERATOR us Hayder Vu Jr., MD LAB POCT ORDERABLES - DEVICE Final Result Performing Organization Address [facility] [place] [address] * aPTT (10/24/2023 12:18 PM HOB MILL OPERATOR) aPTT 35 28 - 38 sec [facility] Comment: Interpretive Data Heparin therapeutic range: 66.0 - 100.0 seconds. Range based on correlation with therapeutic heparin activity range of 0.3 - 0.7 Units/mL. Current interpretive data was last revised on 2023. Blood 10/24/2023 12:1 8 PM HOB MILL OPERATOR 10/24/2023 12:30 PM HOB MILL OPERATOR Narrative [facility] - 10/24/2023 12:55 PM HOB MILL OPERATOR Draw STAT PTT 6 hrs after initiation of heparin infusion, draw STAT PTT 6 hours after each dose change, and every 6 hours until 2 consecutive PTTs are within therapeutic range. Once two consecutive PTT's are therapeutic (66-100 seconds), then draw PTT every AM until heparin is discontinued. us Hayder Vu Jr., MD LAB BLOOD ORDERABLE S Final Result Performing Organization Address [facility] de Phone Number [facility] [place] [address] * TRANSTHORACIC ECHO (TTE) COMPLETE W DOPPLER/CF W CONTRAST (10/24/2023 11:43 AM HOB MILL OPERATOR) LV EF 70 % CARDIOREPORT Anatomical Region Laterality Modality Ultrasound 10/24/2023 7:00 AM HOB MILL OPERATOR Narrative 10/24/2023 12:10 PM HOB MILL OPERATOR Patient name: Hira Evans Date of test: 10/24/2023 Type of test: TTE w/Doppler Hospital #: 0 Date of : 1950 (M) Supervisor Electronics Assembly: Krystal Wasserman JENNIFER Referring Physician: HAYDER VU MD Contrast Agent: 1.1 ml Optison Administered, (1.9 ml wasted). Contrast Administered by: icu nurse Supervised/Interpreted by: Woody White MD Diagnosis: Location: [facility] Reason for test: Post arrest, bilateral PE MV Structure: Normal, ?MV Motion: Normal, ?? Mitral Annulus: Normal AV Structure: tricuspid and is Normal, ?? AV Motion: Normal Aotic root: Normal, ?TM: Normal, ?? PV: Normal Valvular Vegetations: none seen, ?Mass/Thrombi: none seen RA: Normal Measurements: ?M-Mode ?Normal ? Aotic Root: ? <3.8 ? LA: ? <4.0 ? RV: ? <2.8 ? LV(ED): ? <5.7 ? LV(ES): ? Variable ?2D Linear Normal ? Aotic Root: 3.9 cm ?<4.0 ? Ao Indexed: 1.9 cm/M2 <2.0 ? LA: ? <4.0 ? RV: ? 4.5 cm ?<4.2 ? LV(ED): ? 4.2 cm ?<5.9 ? LV(ES): ? 3.0 cm ?<4.0 ?2D Vol. ?? Normal ?Indexed ?? Indexed Normal RA: ? 49.0 ml ? 24.2 ml/M2 ?11-39 ? LA: ? 37.0 ml ? 18.3 ml/M2 ?16-34 ? RV: ? <12.7 ? LV(ED): ? 69.0 ml ?? 62-150 ?34.1 ml/M2 ?<75 ? LV(ES): ? 21.0 ml ?? 21-61 ? 10.4 ml/M2 ?<32 ?3D Vol. ? Indexed Normal LV(ED): ?<75 ? LV(ES): ?<32 ? LV EF: 70 % ?? (Normal: >=52%) ?? LV Septum: 1.2 cm ?(Normal: <1.0 cm) Wall Motion Scoring (1=Normal 2=Hypo 3=Akinetic 4=Dyskin./Aneurysm 0=Not visualized) Parasternal Long [place]:MAS=1 BAS=1 MIL=1 HIPOLIT[place]=1 Parasternal Short [place]:MAS=1 MIS=1 [place]=1 MIL=1 MAL=1 MA=1 Apical 4 Chambers:=1 MIS=1 BIS=1 BAL=1 MAL=1 AL=1 AC=1 Apical 2 Chambers:AI=1 [place]=1 BI=1 BA=1 MA=1 AA=1 AC=1 LV Global Longitudinal Strain: -11.8% ??(Normal <-17%) RV Global Longitudinal Strain: -18% ??(Normal <-17%) LV Function: Normal LV Ejection Fraction, (EF=52-72%) RV Function: Normal Septal Motion: Normal Pericardial Effusion: none seen Atrial Septum: Normal DOPPLER/COLOR FLOW DOPPLER RESULTS: Diastolic Function: Grade I, altered relax. w/N. LA pres. Tricuspid Valve: normal TV Pulmonic Valve: normal PV AV Regurgitation: No AR seen AV Stenosis: no AV Area: ??cm2 AV Pressure Gradient (mmHg): Mean: 0, Peak:0 MV Regurgitation: No MR seen MV Stenosis: no MS MV Area: ??cm2 MV Pressure Gradient (mmHg): Mean: 0 MV ERO: ??cm Regurg. Vol.: ??ml/beat Regurg. Frac.: ??% PA Pressure: 40+RA mmHg DOPPLER/COLOR FOLOW DOPPLER COMMENTS: No AR seen, No MR seen, no , no MS, normal TV, normal PV. Diastolic function: Grade I, altered relax. w/N. LA pres. CONTRAST: 1.1 ml Optison Administered, (1.9 ml wasted). SUMMARY: TDS. ??Mild-moderate RV cavity enlargement with Terrell sign. Overall, normal RV function (TAPSE 2.5 cm). Estimated PA systolic pressure 40+RA(8) mmHg. No valvular abnormality noted. LV cavity size is normal with normal systolic function. LVEF70%. Grade I diastolic function with normal mean LA pressure. ??Normal Inferior vena cava. Normal aorta. No prior study. Confirmed on ??10/24/2023 - 12:10:14 by Woody White MD By signing this report, the attending documentum consultant certifies that he or she has personally supervised and interpreted the echocardiogram and has reviewed and or edited and agrees with the written comments contained within the report. Procedure Note Woody Hidalgo MD - 10/24/2023 Patient name: Hira Evans Date of test: 10/24/2023 Type of test: TTE w/Doppler [facility] #: 0 Date of : 1950 (M) Supervisor Electronics Assembly: Krystal Wasserman [facility] Referring Physician: HAYDER VU MD Contrast Agent: 1.1 ml Optison Administered, (1.9 ml wasted). Contrast Administered by: icu nurse Supervised/Interpreted by: Woody White MD Diagnosis: Location: [facility] Reason for test: Post arrest, bilateral PE MV Structure: Normal, MV Motion: Normal, Mitral Annulus: Normal AV Structure: tricuspid and is Normal, AV Motion: Normal Aotic root: Normal, TM: Normal, PV: Normal Valvular Vegetations: none seen, Mass/Thrombi: none seen RA: Normal Measurements: M-Mode Normal Aotic Root: <3.8 LA: <4.0 RV: <2.8 LV(ED): <5.7 LV(ES): Variable 2D Linear Normal Aotic Root: 3.9 cm <4.0 Ao Indexed: 1.9 cm/M2 <2.0 LA: <4.0 RV: 4.5 cm <4.2 LV(ED): 4.2 cm <5.9 LV(ES): 3.0 cm <4.0 2D Vol. Normal Indexed Indexed Normal RA: 49.0 ml 24.2 ml/M2 11-39 LA: 37.0 ml 18.3 ml/M2 16-34 RV: <12.7 LV(ED): 69.0 ml 62-150 34.1 ml/M2 <75 LV(ES): 21.0 ml 21-61 10.4 ml/M2 <32 3D Vol. Indexed Normal LV(ED): <75 LV(ES): <32 LV EF: 70 % (Normal: >=52%) LV Septum: 1.2 cm (Normal: <1.0 cm) Wall Motion Scoring (1=Normal 2=Hypo 3=Akinetic 4=Dyskin./Aneurysm 0=Not visualized) Parasternal Long [place]:MAS=1 BAS=1 MIL=1 HIPOLITO=1 Parasternal Short [place]:MAS=1 MIS=1 [place]=1 MIL=1 MAL=1 MA=1 Apical 4 Chambers:=1 MIS=1 BIS=1 BAL=1 MAL=1 AL=1 AC=1 Apical 2 Chambers:AI=1 [place]=1 BI=1 BA=1 MA=1 AA=1 AC=1 LV Global Longitudinal Strain: -11.8% (Normal <-17%) RV Global Longitudinal Strain: -18% (Normal <-17%) LV Function: Normal LV Ejection Fraction, (EF=52-72%) RV Function: Normal Septal Motion: Normal Pericardial Effusion: none seen Atrial Septum: Normal DOPPLER/COLOR FLOW DOPPLER RESULTS: Diastolic Function: Grade I, altered relax. w/N. LA pres. Tricuspid Valve: normal TV Pulmonic Valve: normal PV AV Regurgitation: No AR seen AV Stenosis: no AV Area: cm2 AV Pressure Gradient (mmHg): Mean: 0, Peak:0 MV Regurgitation: No MR seen MV Stenosis: no MS MV Area: cm2 MV Pressure Gradient (mmHg): Mean: 0 MV ERO: cm Regurg. Vol.: ml/beat Regurg. Frac.: % PA Pressure: 40+RA mmHg DOPPLER/COLOR FOLOW DOPPLER COMMENTS: No AR seen, No MR seen, no , no MS, normal TV, normal PV. Diastolic function: Grade I, altered relax. w/N. LA pres. CONTRAST: 1.1 ml Optison Administered, (1.9 ml wasted). SUMMARY: TDS. Mild-moderate RV cavity enlargement with Terrell sign. Overall, normal RV function (TAPSE 2.5 cm). Estimated PA systolic pressure 40+RA(8) mmHg. No valvular abnormality noted. LV cavity size is normal with normal systolic function. LVEF70%. Grade I diastolic function with normal mean LA pressure. Normal Inferior vena cava. Normal aorta. No prior study. Confirmed on 10/24/2023 - 12:10:14 by Woody White MD By signing this report, the attending documentum consultant certifies that he or she has personally supervised and interpreted the echocardiogram and has reviewed and or edited and agrees with the written comments contained within the report. Hayder Vu Jr., MD CV ECHO PROCEDURES Final Result * POCT glucose (10/24/2023 11:04 AM HOB MILL OPERATOR) [facility] Signature Glucose, POC 121 70 - 199 mg/dL [facility] Blood 10/24/2023 11:0 4 AM HOB MILL OPERATOR 10/24/2023 11:04 AM HOB MILL OPERATOR Hayder Vu Jr., MD LAB POCT ORDERABLES - DEVICE Final Result [facility] [place] [address] * (ABNORMAL) Troponin I high-sensitivity 6-hour (10/24/2023 9:39 AM HOB MILL OPERATOR) Trop I hs 133(H) <=35 ng/L [facility] Comment: Interpretive Data For further hscTnI resources including the diagnostic algorithm and an aid in interpretation, copy and paste this link: [email or web address] Current Interpretive Data last revised 2020. Previous critical value noted within 48 hours ago. Trop I hs pct delta -35(C) % [facility] Trop I hs interp Significa nt(C) [facility] Blood 10/24/2023 9:39 AM HOB MILL OPERATOR 10/24/2023 9:54 AM HOB MILL OPERATOR us Hayder Vu Jr., MD LAB BLOOD ORDERABLE S Edited Result - Final Performing Organization Address [facility]/ZIP Co de Phone Number [facility] Department of [place], [place] [id number] * (ABNORMAL) Troponin I high-sensitivity (10/24/2023 8:32 AM HOB MILL OPERATOR) Pathologist [facility] Trop I hs 153(H) <=35 ng/L [facility] Comment: Interpretive Data For further hscTnI resources including the diagnostic algorithm and an aid in interpretation, copy and paste this link: [email or web address]/[email or web address] Current Interpretive Data last revised 2020. Blood 10/24/2023 8:32 AM HOB MILL OPERATOR 10/24/2023 8:59 AM HOB MILL OPERATOR us Veronica MESA LAB BLOOD ORDERABLES Fi nal Result [facility] [place] [address] * POCT glucose (10/24/2023 7:31 AM HOB MILL OPERATOR) Pathologist [facility] Glucose, POC 111 70 - 199 mg/dL [facility] Blood 10/24/2023 7:31 AM HOB MILL OPERATOR 10/24/2023 7:31 AM HOB MILL OPERATOR us Hayder Vu Jr., MD LAB POCT ORDERABLES - DEVICE Final Result [facility] [place] [address] * Critical Care (10/24/2023 6:48 AM HOB MILL OPERATOR) Narrative Avel Bourne MD - 10/24/2023 6:48 AM HOB MILL OPERATOR Rob Langley NP ? 10/24/2023 ??5:31 PM Critical Care Performed by: Rob Langley NP Authorized by: Rob Langley NP ?? CRITICAL CARE: ??Team: ??SICU BLUE ??Shift: ??AM ??Level of Billing: ??Critical Care ??My time spent with this patient was 90 minutes: Critical Provider Statement: I have seen and examined the patient on this day of service. I have reviewed and confirmed the history, physical exam, laboratory and radiologic data as documented in the signed ICU note. I have reviewed and discussed my treatment plan with the ICU team and other medical/telesales consultant staff, making frequent assessments and decisions [...] or life-threatening deterioration of the following conditions: ?? us Rob Langley CROWN CERAMIST IN CLINIC/BEDS ADELE ORDERABLES Final Result * aPTT (10/24/2023 5:38 AM HOB MILL OPERATOR) aPTT 30 28 - 38 sec [facility] Comment: Interpretive Data Heparin therapeutic range: 66.0 - 100.0 seconds. Range based on correlation with therapeutic heparin activity range of 0.3 - 0.7 Units/mL. Current interpretive data was last revised on 2023. Blood 10/24/2023 5:38 AM HOB MILL OPERATOR 10/24/2023 5:43 AM HOB MILL OPERATOR Narrative [facility] - 10/24/2023 6:06 AM HOB MILL OPERATOR Draw STAT PTT 6 hrs after initiation of heparin infusion, draw STAT PTT 6 hours after each dose change, and every 6 hours until 2 consecutive PTTs are within therapeutic range. Once two consecutive PTT's are therapeutic (66-100 seconds), then draw PTT every AM until heparin is discontinued. Hayder Vu Jr., MD LAB BLOOD ORDERABLE S Final Result Performing Organization Address [facility] Co de Phone Number [facility] [place] [address] * (ABNORMAL) Troponin I high-sensitivity 2-hour (10/24/2023 5:38 AM HOB MILL OPERATOR) Trop I hs 195(H) <=35 ng/L [facility] Comment: Previous critical value noted within 48 hours ago. Interpretive Data For further hscTnI resources including the diagnostic algorithm and an aid in interpretation, copy and paste this link: https://bjhlab.testcatalog.org/show/hsTrop-[email or web address] Current Interpretive Data last revised 2020. Trop I hs pct delta -5 % [facility] Comment:Previous critical va lue noted within 48 hours ago. Trop I hs interp Equivocal [facility] Comment:Previous critical va lue noted within 48 hours ago. Blood 10/24/2023 5:38 AM HOB MILL OPERATOR 10/24/2023 5:43 AM HOB MILL OPERATOR Hayder Vu Jr., MD LAB BLOOD ORDERABLE S Final Result Performing Organization Address [facility] Co de Phone Number [facility] [place] [address] * EEG (10/24/2023 5:02 AM HOB MILL OPERATOR) Anatomical Region Laterality Modality EEG Narrative 10/24/2023 4:40 PM HOB MILL OPERATOR Routine EEG Report Patient Name: Hira Evans [facility] Medical Record Number (MRN): [id number] [facility] Record: [id number] Date of (): 1950 EEG Date: 10/24/2023 Ordering Provider: Zaheer Bennett MD CC: Rl Medina Start Time: 10/24/2023 04:12:53 AM ? End Time: ??10/24/2023 04:34:04 AM Introduction: Mr. Evans is a 73 y.o. male with a history of prostate cancer s/p RRP, HTN, severe LLE lumbar radiculopathy 2/2 left L4-L5 disc herniation who presented for L4-5 open posterior spinal fusion surgery was found to have a seizure like activity prior to having a cardiac arrest in PACU unit. EEG was performed to evaluate for seizures. This is a 32 channel EEG recording acquired on a [employer] EEG-1200 acquisition system. Scalp electrodes were placed according to the international 10-20 System. The analog EEG was filtered from 1-70 Hz and digitally sampled at 200 Hz. The record was then reformatted for review in bipolar and referential montages. EEG Description: There was no well formed posterior dominant rhythm. The background was continuous and included, diffuse, irregular 2-7 Hz delta admixed theta activity, with slower frequencies mildly more prominent over the left hemisphere. Sleep structures were not identified. Hyperventilation and photic strobe stimulation were not performed. There were no epileptiform abnormalities. There were no seizures. Interpretation: This is an abnormal EEG due to 1) left hemisphere slowing, and 2) moderate generalized slowing of the background. Focal slowing indicates focal cerebral dysfunction. A focal structural or physiological abnormality should be considered. Generalized slowing indicates diffuse cerebral dysfunction as seen in metabolic, toxic, or diffuse or multifocal structural abnormalities. By signing this report, the attending Electroencephalographer certifies that he/she personally reviewed the electrodiagnostics study and has edited this report to fully conform with his/her intent. Signing Attending: Tyrone Holguin MD PhD Hayder Vu Jr., MD NEUROLOGY ORDERABLE S Final Result * ECG 12 lead (10/24/2023 3:44 AM HOB MILL OPERATOR) Ventricular Rate EKG/Min 82 BPM [facility] Atrial Rate 82 BPM [facility] UT-Interval (MSEC) 166 ms [facility] QRS-Interval (MSEC) 78 ms [facility] QT-Interval (MSEC) 384 ms [facility] QTc 448 ms [facility] P [place] 34 degrees [facility] R [place] -30 degrees [facility] T [place] -13 degrees [facility] Diagnosis Normal sinus rhythm Left axis deviation Nonspecific ST abnormality Abnormal ECG No previous ECGs available Confirmed by ELLA LASSITER M.D ([id number]) on 10/25/2023 1:12:26 PM [facility] 10/24/2023 3:44 AM HOB MILL OPERATOR 10/25/2023 1:12 PM HOB MILL OPERATOR us Tia Nolan NP ECG ORDERABLES Final Result [facility] * Critical result callback Cardio chemistry (10/24/2023 3:38 AM HOB MILL OPERATOR) Date Notified [id number] [facility] Time Notified 451 [facility] Test name Trop I hs [facility] Called/Read Back Edwige Porras [facility] Credentials RN [facility] Called By JO [facility] Blood 10/24/2023 3:38 AM HOB MILL OPERATOR 10/24/2023 4:02 AM HOB MILL OPERATOR us Hayder Vu Jr., MD LAB BLOOD ORDERABLE S Final Result [facility] Department [place] [address] * (ABNORMAL) Troponin I high-sensitivity series (baseline, 2hr, 4hr, 6hr) (10/24/2023 3:38 AM HOB MILL OPERATOR) Trop I hs 206(C) <=35 ng/L [facility] Comment: reviewed Interpretive Data For further hscTnI resources including the diagnostic algorithm and an aid in interpretation, copy and paste this link: https://bjhlab.testcatalog.org/show/hsTrop-[email or web address] Current Interpretive Data last revised 2020. Blood 10/24/2023 3:38 AM HOB MILL OPERATOR 10/24/2023 4:02 AM HOB MILL OPERATOR us Hayder Vu Jr., MD LAB BLOOD ORDERABLE S Final Result Performing Organization Address [facility] [place] [address] * Lactate (10/24/2023 3:38 AM HOB MILL OPERATOR) Pathologist [facility] Lactate 0.9 0.7 - 2.0 mmol/L [facility] Blood 10/24/2023 3:38 AM HOB MILL OPERATOR 10/24/2023 4:02 AM HOB MILL OPERATOR Hayder Vu Jr., MD LAB BLOOD ORDERABLE S Final Result Performing Organization Address [facility] de Phone Number [facility] [place] [address] * POCT glucose (10/24/2023 3:25 AM HOB MILL OPERATOR) Glucose, POC 180 70 - 199 mg/dL [facility] Blood 10/24/2023 3:25 AM HOB MILL OPERATOR 10/24/2023 3:25 AM HOB MILL OPERATOR us Hayder Vu Jr., MD LAB POCT ORDERABLES - DEVICE Final Result Performing Organization Address [facility] Co de Phone Number [facility] [place] [address] * (ABNORMAL) POCT glucose (10/24/2023 12:20 AM HOB MILL OPERATOR) Glucose, POC 252(H) 70 - 199 mg/dL [facility] Blood 10/24/2023 12:2 0 AM HOB MILL OPERATOR 10/24/2023 12:20 AM HOB MILL OPERATOR Hayder Vu Jr., MD LAB POCT ORDERABLES - DEVICE Final Result Performing Organization Address [facility] de Phone Number [facility] [place] [address] * (ABNORMAL) aPTT (10/24/2023 12:20 AM HOB MILL OPERATOR) [facility] aPTT 27(L) 28 - 38 sec [facility] Comment: Interpretive Data Heparin therapeutic range: 66.0 - 100.0 seconds. Range based on correlation with therapeutic heparin activity range of 0.3 - 0.7 Units/mL. Current interpretive data was last revised on 2023. Blood 10/24/2023 12:2 0 AM HOB MILL OPERATOR 10/24/2023 12:31 AM HOB MILL OPERATOR Narrative [facility] - 10/24/2023 12:58 AM HOB MILL OPERATOR Baseline prior to heparin initiation Hayder Vu Jr., MD LAB BLOOD ORDERABLE S Final Result Performing Organization Address [facility] de Phone Number [facility] [place] [address] * (ABNORMAL) CBC without differential (10/24/2023 12:20 AM HOB MILL OPERATOR) [facility] WBC 22.9(H) 3.8 - 9.9 K/cumm [facility] Hgb 9.0(L) 13.0 - 17.5 g/dL [facility] Hct 25.4(L) 38.9 - 50.3 % [facility] Plt 366 150 - 400 K/cumm [facility] MPV 10.8 9.1 - 12.3 fL [facility] RBC 2.76(L) 4.30 - 5.80 M/cumm [facility] MCV 92.0 81.3 - 96.4 fL [facility] MCH 32.6 27.1 - 33.3 pg [facility] MCHC 35.4 32.3 - 35.7 g/dL [facility] RDW CV 12.5 11.1 - 14.9 % [facility] RDW SD 41.8 35.7 - 48.1 fL [facility] NRBC abs 0.00 0.00 - 0.01 K/cumm [facility] Blood 10/24/2023 12:2 0 AM HOB MILL OPERATOR 10/24/2023 12:45 AM HOB MILL OPERATOR Narrative [facility] - 10/24/2023 12:55 AM HOB MILL OPERATOR Baseline prior to heparin initiation Hayder Vu Jr., MD LAB BLOOD ORDERABLE S Final Result Performing Organization Address [facility] de Phone Number [facility] [place] [address] * Protime-INR (10/24/2023 12:20 AM HOB MILL OPERATOR) PT 13.7 10.3 - 13.7 sec [facility] INR 1.20 0.90 - 1.20 [facility] Comment: Interpretive data Oral anticoagulant therapeutic ranges: Venous thromboembolism prophylaxis or treatment: 2.0-3.0 CARDIOLOGY Standard range: 2.0-3.0 High-intensity range: 2.5-3.5 Refer to indication-specific guidelines for appropriate target ranges for prosthetic heart valve replacement. Current interpretive data was last revised on 2019. Blood 10/24/2023 12:2 0 AM HOB MILL OPERATOR 10/24/2023 12:31 AM HOB MILL OPERATOR Narrative [facility] - 10/24/2023 12:58 AM HOB MILL OPERATOR Baseline prior to heparin initiation Hayder Vu Jr., MD LAB BLOOD ORDERABLE S Final Result Performing Organization Address [facility] Co de Phone Number [facility] [place] [address] * HIV 1/2 Antibody plus p24 Antigen Blood (10/24/2023 12:20 AM HOB MILL OPERATOR) HIV 1/2 ab + p24 ag Nonreactive Nonreactive [facility] Comment:Nonreactive for HIV- 1 antigen and HIV-1/HIV-2 antibodies. No laboratory evidence of HIV infection. If acute HIV infection is suspected, consider testing for HIV-1 RNA. Current interpretive data was last revised on 22. Blood 10/24/2023 12:2 0 AM HOB MILL OPERATOR 10/24/2023 12:45 AM HOB MILL OPERATOR us Hayder Vu Jr., MD LAB MICROBIOLOGY - GENERAL ORDERABLES Final Result [facility] [place] [address] * CT Chest PE (CTA) Abdomen Pelvis W Contrast (10/23/2023 11:48 PM HOB MILL OPERATOR) Anatomical Region Laterality Modality Body N/A Computed Tomogra phy 10/24/2023 12:1 1 AM HOB MILL OPERATOR Impressions 10/24/2023 7:15 AM HOB MILL OPERATOR 1. ??Acute pulmonary emboli involving the distal right and left main pulmonary arteries extending into all bilateral lobar and multiple bilateral segmental pulmonary arteries. ??No CT evidence of right heart strain. 2. ??Interval removal of the left percutaneous nephrostomy tube and placement of left double-J ureteral stent. ??There is a stable left renal subcapsular hematoma and a 10 mm crescentic density along the ureteral stent, which likely represent residual calculus. 3. ??New right 2nd through 6th and left 2nd through 7th rib fractures, likely secondary to cardiopulmonary resuscitation. The Critical results were discussed with Dr. Mahan by Dr. Zhu on 10/24/2023 at 00:11 Dictated by: Ra Zhu MD, PHD The radiology attending physician has personally reviewed this study, and had reviewed and/or edited this written report and agrees with it. Electronically signed by: Clemente Mathew M.D. Narrative 10/24/2023 7:15 AM HOB MILL OPERATOR EXAMINATION: CT CHEST PE (CTA) ABDOMEN PELVIS W CONTRAST HISTORY: 73-year-old with seizure and cardiac arrest after spinal surgery today. TECHNIQUE: Computed tomographic images were acquired using a chest angiographic protocol optimized for pulmonary embolism. ??Computed tomographic examination of the abdomen and pelvis with intravenous contrast was performed using a standard protocol. ??Contrast enhanced transaxial images were obtained following the intravenous administration of 70 ml of nonionic contrast. ??Multiplanar reformatted images and three-dimensional images were obtained on the 3-D workstation and sent to the PACS archival system. ?? COMPARISON: CT chest abdomen pelvis 10/12/2023, CT urogram 10/16/2023 FINDINGS: There are acute pulmonary emboli involving the distal right and left main pulmonary arteries extending into all bilateral lobar and multiple bilateral segmental pulmonary arteries. ??There is no CT evidence of right heart strain. ??There is no dilatation of the main pulmonary artery. The heart size is at the upper limits of normal. ??No pericardial effusion. ??There is calcified coronary arteries. ??Thoracic aorta is normal in caliber. ??There is no thoracic lymphadenopathy. ??There is subsegmental dependent atelectasis in lung bases. ??There is no pleural effusion. ??No pneumothorax. There are multiple scattered hypoattenuating lesions in the liver, the majority of which are consistent with simple cysts while others are too small to characterize. ??No bile duct dilatation. ??The gallbladder is normal. ??Pancreas and spleen are normal. ??Adrenal glands are normal. ??There is a tiny nonobstructing right upper pole renal calculus. ??There is a too small to characterize hypoattenuating lesion in the right kidney. ??No right hydronephrosis. ??On the left, there has been interval removal of the left percutaneous gastrostomy tube and placement of a left double-J ureteral stent. ??There is a persistent left renal subcapsular hematoma. ??There is a linear hypoattenuating lesion in the left kidney, which may be related to the prior site of the nephrostomy tube. ??In the left mid ureter along the course of the double-J ureteral stent, there is a 10 x 3 mm crescentic density, which may represent residual calculus (series 10, image 118). The urinary bladder is decompressed by Harris catheter. ??Brachytherapy seeds noted in the region of the prostate. ??There is no ascites or pneumoperitoneum. ??There are colonic diverticuli without evidence of acute diverticulitis. ??The large bowel is normal in caliber. ??Small bowel is normal in caliber. ??No hiatal hernia. Abdominal aorta is atherosclerotic and nonaneurysmal. ??No lymphadenopathy in the abdomen or pelvis. There are interval surgical changes of combined posterior and interbody L4/L5 spinal fusion with posterior decompression. ??There are new acute nondisplaced angulations of the anterior aspect of the right 2nd through 6th ribs as well as new acute nondisplaced or mildly displaced fractures of the left 2nd through 7th ribs (the left anterior 4th rib fracture is identified is mildly displaced). Diffuse idiopathic skeletal hyperostosis. Procedure Note Clemente Mathew MD - 10/24/2023 EXAMINATION: CT CHEST PE (CTA) ABDOMEN PELVIS W CONTRAST HISTORY: 73-year-old with seizure and cardiac arrest after spinal surgery today. TECHNIQUE: Computed tomographic images were acquired using a chest angiographic protocol optimized for pulmonary embolism. Computed tomographic examination of the abdomen and pelvis with intravenous contrast was performed using a standard protocol. Contrast enhanced transaxial images were obtained following the intravenous administration of 70 ml of nonionic contrast. Multiplanar reformatted images and three-dimensional images were obtained on the 3-D workstation and sent to the PACS archival system. COMPARISON: CT chest abdomen pelvis 10/12/2023, CT urogram 10/16/2023 FINDINGS: There are acute pulmonary emboli involving the distal right and left main pulmonary arteries extending into all bilateral lobar and multiple bilateral segmental pulmonary arteries. There is no CT evidence of right heart strain. There is no dilatation of the main pulmonary artery. The heart size is at the upper limits of normal. No pericardial effusion. There is calcified coronary arteries. Thoracic aorta is normal in caliber. There is no thoracic lymphadenopathy. There is subsegmental dependent atelectasis in lung bases. There is no pleural effusion. No pneumothorax. There are multiple scattered hypoattenuating lesions in the liver, the majority of which are consistent with simple cysts while others are too small to characterize. No bile duct dilatation. The gallbladder is normal. Pancreas and spleen are normal. Adrenal glands are normal. There is a tiny nonobstructing right upper pole renal calculus. There is a too small to characterize hypoattenuating lesion in the right kidney. No right hydronephrosis. On the left, there has been interval removal of the left percutaneous gastrostomy tube and placement of a left double-J ureteral stent. There is a persistent left renal subcapsular hematoma. There is a linear hypoattenuating lesion in the left kidney, which may be related to the prior site of the nephrostomy tube. In the left mid ureter along the course of the double-J ureteral stent, there is a 10 x 3 mm crescentic density, which may represent residual calculus (series 10, image 118). The urinary bladder is decompressed by Harris catheter. Brachytherapy seeds noted in the region of the prostate. There is no ascites or pneumoperitoneum. There are colonic diverticuli without evidence of acute diverticulitis. The large bowel is normal in caliber. Small bowel is normal in caliber. No hiatal hernia. Abdominal aorta is atherosclerotic and nonaneurysmal. No lymphadenopathy in the abdomen or pelvis. There are interval surgical changes of combined posterior and interbody L4/L5 spinal fusion with posterior decompression. There are new acute nondisplaced angulations of the anterior aspect of the right 2nd through 6th ribs as well as new acute nondisplaced or mildly displaced fractures of the left 2nd through 7th ribs (the left anterior 4th rib fracture is identified is mildly displaced). Diffuse idiopathic skeletal hyperostosis. IMPRESSION: 1. Acute pulmonary emboli involving the distal right and left main pulmonary arteries extending into all bilateral lobar and multiple bilateral segmental pulmonary arteries. No CT evidence of right heart strain. 2. Interval removal of the left percutaneous nephrostomy tube and placement of left double-J ureteral stent. There is a stable left renal subcapsular hematoma and a 10 mm crescentic density along the ureteral stent, which likely represent residual calculus. 3. New right 2nd through 6th and left 2nd through 7th rib fractures, likely secondary to cardiopulmonary resuscitation. The Critical results were discussed with Dr. Mahan by Dr. Zhu on 10/24/2023 at 00:11 Dictated by: Ra Zhu MD, PHD The radiology attending physician has personally reviewed this study, and had reviewed and/or edited this written report and agrees with it. Electronically signed by: Clemente Mathew M.D. us Hayder Vu Jr., MD IMG CT PROCEDURES F inal Result * CT Head WO Contrast (10/23/2023 11:48 PM HOB MILL OPERATOR) Anatomical Region Laterality Modality Head and Neck N/A Computed Tomogra phy 10/24/2023 12:3 6 AM HOB MILL OPERATOR Impressions 10/24/2023 11:45 AM HOB MILL OPERATOR Subtle white matter hypoattenuation with loss of alvarado-white differentiation the left frontal pole. ??If there is clinical concern for stroke, MRI of brain can be performed for further evaluation. The Critical results were discussed with Dr. Reyes by Dr. Martinez on 10/24/2023 at 12:29 AM ADDENDUM - This addendum is being placed on the report for a time dependent finding on a patient who is admitted to the hospital (2B). There are bilateral subdural hematomas along the cerebral convexities, likely subacute. ??The left hematoma measures approximately 2 mm, while the right measures approximately 1 mm.. These findings were communicated to Dr. Langley by Dr. Martinez at 7:11AM on 10/24/2023. Dictated by: Eric Martinez M.D. The radiology attending physician has personally reviewed this study, and had reviewed and/or edited this written report and agrees with it. Electronically signed by: Zac Mcgarry M.D. Narrative 10/24/2023 11:45 AM HOB MILL OPERATOR EXAMINATION: CT head without contrast HISTORY: 73-year-old male, status post lumbar fusion with new onset seizure and cardiac arrest. TECHNIQUE: CT of the head was performed with images acquired from skull base to vertex without intravenous contrast. COMPARISON: No similar prior studies are available for comparison. FINDINGS: Topogram demonstrates no lytic lesions or fractures. There is no acute intracranial hemorrhage. Ventricles are of normal size and morphology. No mass effect or midline shift is present. There is subtle decrease in alvarado-white differentiation in the left frontal lobe with asymmetric white matter hypoattenuation (series 2, image 32). The visualized portions of the orbits are normal. Retention cysts in the maxillary sinuses and mild ethmoid mucosal thickening with inspissated secretions in the sphenoid sinus are noted. The visualized portions of the paranasal sinuses are normal. No fractures are identified. Procedure Note Zac Mcgarry MD - 10/24/2023 EXAMINATION: CT head without contrast HISTORY: 73-year-old male, status post lumbar fusion with new onset seizure and cardiac arrest. TECHNIQUE: CT of the head was performed with images acquired from skull base to vertex without intravenous contrast. COMPARISON: No similar prior studies are available for comparison. FINDINGS: Topogram demonstrates no lytic lesions or fractures. There is no acute intracranial hemorrhage. Ventricles are of normal size and morphology. No mass effect or midline shift is present. There is subtle decrease in alvarado-white differentiation in the left frontal lobe with asymmetric white matter hypoattenuation (series 2, image 32). The visualized portions of the orbits are normal. Retention cysts in the maxillary sinuses and mild ethmoid mucosal thickening with inspissated secretions in the sphenoid sinus are noted. The visualized portions of the paranasal sinuses are normal. No fractures are identified. IMPRESSION: Subtle white matter hypoattenuation with loss of alvarado-white differentiation the left frontal pole. If there is clinical concern for stroke, MRI of brain can be performed for further evaluation. The Critical results were discussed with Dr. Reyes by Dr. Martinez on 10/24/2023 at 12:29 AM ADDENDUM - This addendum is being placed on the report for a time dependent finding on a patient who is admitted to the hospital (2B). There are bilateral subdural hematomas along the cerebral convexities, likely subacute. The left hematoma measures approximately 2 mm, while the right measures approximately 1 mm.. These findings were communicated to Dr. Langley by Dr. Martinez at 7:11AM on 10/24/2023. Dictated by: Eric Martinez M.D. The radiology attending physician has personally reviewed this study, and had reviewed and/or edited this written report and agrees with it. Electronically signed by: Zac Mcgarry M.D. Hayder Vu Jr., MD IM CT PROCEDURES F inal Result * Critical Care (10/23/2023 11:47 PM HOB MILL OPERATOR) Narrative Wilder Arceo Jr., MD - 10/23/2023 11:47 PM HOB MILL OPERATOR Wilder Arceo Jr., MD ? 10/24/2023 ??3:28 AM Critical Care Performed by: Wilder Arceo Jr., MD Authorized by: Wilder Arceo Jr., MD ?? CRITICAL CARE: ??Team: ??SICU BLUE ??Shift: ??PM ??Level of Billing: ??Critical Care ??My time spent with this patient was 90 minutes: Critical Provider Statement: I have seen and examined the patient on this day of service. I have reviewed and confirmed the history, physical exam, laboratory and radiologic data as documented in the signed ICU note. I have reviewed and discussed my treatment plan with the ICU team and other medical/telesales consultant staff, making frequent assessments and decisions [...] life-threatening deterioration of the following conditions: ? Acute delirium, Seizure, Acute pain/acute postoperative pain and Encephalopathy/altered mental status ?? Undifferentiated shock and Cardiac arrest ?? Lactic acidosis ??This time was spent by me doing the following: ? Serial laboratory checks and Resuscitation with fluids ?? Anti-epileptic therapy ?? Initiation/active titration of vasoactive medications ?? Active and frequent reassessment of respiratory status and oxygen requirements ?? Active and frequent monitoring of intake/output and volumen status ?? I spent time reviewing and interpreting data from bedside monitors, laboratory results, and imaging, I spent time discussing the management of this critically ill patient with consultants and the medical staff and I spent time documenting in the medical record us Wilder Arceo Jr., MD IN CLINIC/BEDSIDE ORDERABL ES Final Result * (ABNORMAL) Manual Differential (10/23/2023 11:03 PM HOB MILL OPERATOR) Differential Auto [facility] Neutrophil abs 23.5(H) 1.5 - 6.5 K/cumm [facility] Imm gran abs 0.9(H) 0.0 - 0.1 K/cumm [facility] Lymphocyte abs 1.1 0.8 - 3.3 K/cumm [facility] Monocyte abs 1.1(H) 0.2 - 0.8 K/cumm [facility] Eosinophil abs 0.1 0.0 - 0.5 K/cumm [facility] Basophil abs 0.1 0.0 - 0.1 K/cumm [facility] Neutrophil pct 88.2 % [facility] Comment: Interpretive Data Percent cell count reference ranges are not reported, since discordance with absolute values may lead to misinterpretation of CBC data. Current Interpretive Data was last revised on 2018. Imm gran pct 3.4 % [facility] Comment: Interpretive Data Percent cell count reference ranges are not reported, since discordance with absolute values may lead to misinterpretation of CBC data. Current Interpretive Data was last revised on 2018. Lymphocyte pct 3.9 % [facility] Comment: Interpretive Data Percent cell count reference ranges are not reported, since discordance with absolute values may lead to misinterpretation of CBC data. Current Interpretive Data was last revised on 2018. Monocyte pct 3.9 % [facility] Comment: Interpretive Data Percent cell count reference ranges are not reported, since discordance with absolute values may lead to misinterpretation of CBC data. Current Interpretive Data was last revised on 2018. Eosinophil pct 0.2 % [facility] Comment: Interpretive Data Percent cell count reference ranges are not reported, since discordance with absolute values may lead to misinterpretation of CBC data. Current Interpretive Data was last revised on 2018. Basophil pct 0.4 % [facility] Comment: Interpretive Data Percent cell count reference ranges are not reported, since discordance with absolute values may lead to misinterpretation of CBC data. Current Interpretive Data was last revised on 2018. RBC morphology Present(A) [facility] Polychromasia 3-7/HPF(A) [facility] Poikilocytosis Slight(A) [facility] Platelet estimate Adequate [facility] Blood 10/23/2023 11:0 3 PM HOB MILL OPERATOR 10/23/2023 11:43 PM HOB MILL OPERATOR us Jimenez Sy Henao MD LAB BLOOD ORDERABLES Final Result [facility] [place] [address] * (ABNORMAL) Differential, auto (10/23/2023 11:03 PM HOB MILL OPERATOR) Neutrophil abs 23.5(H) 1.5 - 6.5 K/cumm [facility] Imm gran abs 0.9(H) 0.0 - 0.1 K/cumm [facility] Lymphocyte abs 1.1 0.8 - 3.3 K/cumm [facility] Monocyte abs 1.1(H) 0.2 - 0.8 K/cumm [facility] Eosinophil abs 0.1 0.0 - 0.5 K/cumm [facility] Basophil abs 0.1 0.0 - 0.1 K/cumm [facility] Neutrophil pct 88.2 % [facility] Comment: Interpretive Data Percent cell count reference ranges are not reported, since discordance with absolute values may lead to misinterpretation of CBC data. Current Interpretive Data was last revised on 2018. Imm gran pct 3.4 % [facility] Comment: Interpretive Data Percent cell count reference ranges are not reported, since discordance with absolute values may lead to misinterpretation of CBC data. Current Interpretive Data was last revised on 2018. Lymphocyte pct 3.9 % [facility] Comment: Interpretive Data Percent cell count reference ranges are not reported, since discordance with absolute values may lead to misinterpretation of CBC data. Current Interpretive Data was last revised on 2018. Monocyte pct 3.9 % [facility] Comment: Interpretive Data Percent cell count reference ranges are not reported, since discordance with absolute values may lead to misinterpretation of CBC data. Current Interpretive Data was last revised on 2018. Eosinophil pct 0.2 % [facility] Comment: Interpretive Data Percent cell count reference ranges are not reported, since discordance with absolute values may lead to misinterpretation of CBC data. Current Interpretive Data was last revised on 2018. Basophil pct 0.4 % [facility] Comment: Interpretive Data Percent cell count reference ranges are not reported, since discordance with absolute values may lead to misinterpretation of CBC data. Current Interpretive Data was last revised on 2018. Blood 10/23/2023 11:0 3 PM HOB MILL OPERATOR 10/23/2023 11:11 PM HOB MILL OPERATOR Jimenez Henao MD LAB BLOOD ORDERABLES Final Result Performing Organization Address [facility] de Phone Number [facility] [place] [address] * (ABNORMAL) Blood gas, arterial (10/23/2023 11:03 PM HOB MILL OPERATOR) pH, Art 7.38 7.35 - 7.45 [facility] PCO2, Arterial 37 35 - 45 mmHg [facility] PO2, Arterial 133(H) 83 - 108 mmHg [facility] HCO3 Art (Calculated) 22 20 - 30 mmol/L [facility] BE, art -3 mmol/L [facility] Comment: Interpretive Data No Reference Range Established Current Interpretive Data was last revised on 2017 O2 Sat Art (Measured) 99(H) 90 - 95 % [facility] Blood 10/23/2023 11:0 3 PM HOB MILL OPERATOR 10/23/2023 11:10 PM HOB MILL OPERATOR Hayder Vu Jr., MD LAB BLOOD ORDERABLE S Final Result Performing Organization Address [facility] de Phone Number [facility] [place] [address] * (ABNORMAL) Calcium, ionized (10/23/2023 11:03 PM HOB MILL OPERATOR) Pathologist [facility] Calcium, Ionized 4.41(L) 4.50 - 5.10 mg/dL [facility] Blood 10/23/2023 11:0 3 PM HOB MILL OPERATOR 10/23/2023 11:13 PM HOB MILL OPERATOR Hayder Vu Jr., MD LAB BLOOD ORDERABLE S Final Result [facility] [place] [address] * (ABNORMAL) CBC with auto differential (10/23/2023 11:03 PM HOB MILL OPERATOR) WBC 26.7(H) 3.8 - 9.9 K/cumm [facility] Hgb 9.0(L) 13.0 - 17.5 g/dL [facility] Hct 27.3(L) 38.9 - 50.3 % [facility] Plt 418(H) 150 - 400 K/cumm [facility] MPV 11.3 9.1 - 12.3 fL [facility] RBC 2.88(L) 4.30 - 5.80 M/cumm [facility] MCV 94.8 81.3 - 96.4 fL [facility] Comment:MCV delta due to manpreet gical procedure. Spoke to Edwige Porras RN. MCH 31.3 27.1 - 33.3 pg [facility] MCHC 33.0 32.3 - 35.7 g/dL [facility] RDW CV 12.4 11.1 - 14.9 % [facility] RDW SD 43.5 35.7 - 48.1 fL [facility] NRBC abs 0.00 0.00 - 0.01 K/cumm [facility] Blood 10/23/2023 11:0 3 PM HOB MILL OPERATOR 10/23/2023 11:11 PM HOB MILL OPERATOR Tia Nolan NP LAB BLOOD ORDERABLES E dited Result - Final [facility] [place] [address] * (ABNORMAL) Lipid panel (10/23/2023 11:02 PM HOB MILL OPERATOR) Pathologist [facility] Cholesterol 162 30 - 199 mg/dL [facility] Comment: Interpretive Data Ages < [...] on 2018. Triglycerides 134 <=149 mg/dL [facility] Comment: Interpretive Data Ages [...] revised on 2018. HDL 34(L) >=40 mg/dL [facility] Comment: Interpretive Data Ages [...] on 2018. LDL, calculated 101 <=129 mg/dL [facility] Comment: Interpretive Data Ages < [...] revised on 2018. Non-HDL Cholesterol 128 mg/dL [facility] Comment: Interpretive Data Ages < [...] last revised on 2018. Chol/HDL ratio 5 [facility] Blood 10/23/2023 11:0 2 PM HOB MILL OPERATOR 10/23/2023 11:14 PM HOB MILL OPERATOR Narrative LAURA CORRAL - 10/24/2023 11:06 AM HOB MILL OPERATOR This lipid panel was automatically ordered due to a significant change in Troponin. The dietary status of the patient at the collection time should be correlated with the lipid results. us Hayder Vu Jr., MD LAB BLOOD ORDERABLE S Final Result [facility] [place] [address] * eGFR (10/23/2023 11:02 PM HOB MILL OPERATOR) eGFR 74 >=60 mL/min/1. 73 m2 [facility] Comment: [...] interpretive data was last reviewed 2021. Blood 10/23/2023 11:0 2 PM HOB MILL OPERATOR 10/23/2023 11:14 PM HOB MILL OPERATOR Hayder Vu Jr., MD LAB BLOOD ORDERABLE S Final Result Performing Organization Address [facility] de Phone Number [facility] [place] [address] * (ABNORMAL) Phosphorus (10/23/2023 11:02 PM HOB MILL OPERATOR) [facility] Phosphorus, pl 4.6(H) 2.3 - 4.5 mg/dL [facility] Blood 10/23/2023 11:0 2 PM HOB MILL OPERATOR 10/23/2023 11:13 PM HOB MILL OPERATOR Hayder Vu Jr., MD LAB BLOOD ORDERABLE S Final Result Performing Organization Address [facility] [place] [address] * Magnesium (10/23/2023 11:02 PM HOB MILL OPERATOR) [facility] Magnesium 2.0 1.4 - 2.5 mg/dL [facility] Blood 10/23/2023 11:0 2 PM HOB MILL OPERATOR 10/23/2023 11:13 PM HOB MILL OPERATOR Hayder Vu Jr., MD LAB BLOOD ORDERABLE S Final Result Performing Organization Address [facility] [place] [address] * (ABNORMAL) Comprehensive metabolic panel (10/23/2023 11:02 PM HOB MILL OPERATOR) [facility] Sodium 137 135 - 145 mmol/L [facility] Potassium, pl 4.1 3.3 - 4.9 mmol/L [facility] Chloride 102 97 - 110 mmol/L [facility] CO2 23 22 - 32 mmol/L [facility] Anion gap 12 2 - 15 mmol/L [facility] BUN 12 6 - 25 mg/dL [facility] Creatinine 1.07 0.80 - 1.30 mg/dL [facility] Glucose 245(H) 70 - 199 mg/dL [facility] Comment: Interpretive Data Fasting glucose [...] 2022. Calcium 8.3(L) 8.5 - 10.3 mg/dL [facility] Bilirubin, total 0.6 0.1 - 1.2 mg/dL [facility] Protein, pl 5.9(L) 6.5 - 8.5 g/dL [facility] Albumin 2.6(L) 3.5 - 5.0 g/dL [facility] Alk phos 91 40 - 130 Units/L [facility] ALT 88(H) 7 - 55 Units/L [facility] AST 83(H) 10 - 50 Units/L [facility] Blood 10/23/2023 11:0 2 PM HOB MILL OPERATOR 10/23/2023 11:13 PM HOB MILL OPERATOR us Hayder Vu Jr., MD LAB BLOOD ORDERABLE S Final Result [facility] [place] [address] * (ABNORMAL) aPTT (10/23/2023 11:02 PM HOB MILL OPERATOR) aPTT 25(L) 28 - 38 sec [facility] Comment: Interpretive Data Heparin therapeutic range: 66.0 - 100.0 seconds. Range based on correlation with therapeutic heparin activity range of 0.3 - 0.7 Units/mL. Current interpretive data was last revised on 2023. Blood 10/23/2023 11:0 2 PM HOB MILL OPERATOR 10/23/2023 11:58 PM HOB MILL OPERATOR Oneyda Foley NP LAB BLOOD ORDERABLES Final Res ult Performing Organization Address [facility] [place] [address] * (ABNORMAL) Protime-INR (10/23/2023 11:02 PM HOB MILL OPERATOR) PT 13.9(H) 10.3 - 13.7 sec [facility] INR 1.22(H) 0.90 - 1.20 [facility] Comment: Interpretive data Oral anticoagulant therapeutic ranges: Venous thromboembolism prophylaxis or treatment: 2.0-3.0 CARDIOLOGY Standard range: 2.0-3.0 High-intensity range: 2.5-3.5 Refer to indication-specific guidelines for appropriate target ranges for prosthetic heart valve replacement. Current interpretive data was last revised on 2019. Blood 10/23/2023 11:0 2 PM HOB MILL OPERATOR 10/23/2023 11:58 PM HOB MILL OPERATOR Oneyda Foley NP LAB BLOOD ORDERABLES Final Res ult Performing Organization Address [facility] [place] [address] * (ABNORMAL) POC Blood Gas and Chemistries, Arterial - (10/23/2023 10:39 PM HOB MILL OPERATOR) pH, Art POC 7.37 7.35 - 7.45 [facility] pCO2, Art POC 38 35 - 45 mmHg [facility] pO2, Art POC 137(H) 83 - 108 mmHg [facility] Na, POC 137 135 - 145 mmol/L [facility] K POC 4.0 3.3 - 4.9 mmol/L [facility] Comment: Interpretive Data This method is not able to assess for hemolysis, which may falsely increase potassium concentrations. If further testing is needed to evaluate this result, consider in-laboratory plasma potassium. Current Interpretive Data was last revised on 2022. Cl, POC 107 97 - 110 mmol/L [facility] Ionized Ca, POC 4.58 4.50 - 5.10 mg/dL [facility] Glucose, POC 247(H) 70 - 199 mg/dL [facility] Lactate, POC 4.6(C) 0.7 - 2.2 mmol/L [facility] SO2 (crys) arterial 100(H) 90 - 95 % [facility] Base excess, POC -3.0 mmol/L [facility] HCO3, Art POC 22 20 - 30 mmol/L [facility] Hct, POC 28.0(L) 41.4 - 51.6 % [facility] O2 Sat, Art POC (Calc) 99 % [facility] Total Hb, POC 9.2(L) 13.8 - 17.2 g/dL [facility] Blood 10/23/2023 10:3 9 PM HOB MILL OPERATOR 10/23/2023 10:39 PM HOB MILL OPERATOR us Hayder Vu Jr., MD LAB POCT ORDERABLES - DEVICE Final Result [facility] [place] [address] * (ABNORMAL) POC Blood Gas and Chemistries, Arterial - (10/23/2023 10:07 PM HOB MILL OPERATOR) pH, Art POC 7.12(C) 7.35 - 7.45 [facility] pCO2, Art POC 54(H) 35 - 45 mmHg [facility] pO2, Art POC 287(H) 83 - 108 mmHg [facility] Na, POC 137 135 - 145 mmol/L [facility] K POC 4.0 3.3 - 4.9 mmol/L [facility] Comment: Interpretive Data This method is not able to assess for hemolysis, which may falsely increase potassium concentrations. If further testing is needed to evaluate this result, consider in-laboratory plasma potassium. Current Interpretive Data was last revised on 2022. Cl, POC 104 97 - 110 mmol/L [facility] Ionized Ca, POC 4.67 4.50 - 5.10 mg/dL [facility] Glucose, POC 235(H) 70 - 199 mg/dL [facility] Lactate, POC 7.2(C) 0.7 - 2.2 mmol/L [facility] SO2 (crys) arterial 100(H) 90 - 95 % [facility] Base excess, POC -11.4 mmol/L [facility] HCO3, Art POC 16(L) 20 - 30 mmol/L [facility] Hct, POC 29.0(L) 41.4 - 51.6 % [facility] O2 Sat, Art POC (Calc) 100 % [facility] Total Hb, POC 9.5(L) 13.8 - 17.2 g/dL [facility] Blood 10/23/2023 10:0 7 PM HOB MILL OPERATOR 10/23/2023 10:07 PM HOB MILL OPERATOR Pipe Moseley MD LAB POCT ORDERABLES - DEV ICE Final Result [facility] [place] [address] * eGFR (10/23/2023 9:52 PM HOB MILL OPERATOR) eGFR 75 >=60 mL/min/1. 73 m2 [facility] Comment: Interpretive Data Reference Interval [...] interpretive data was last reviewed 2021. Blood 10/23/2023 9:52 PM HOB MILL OPERATOR 10/23/2023 10:01 PM HOB MILL OPERATOR us Myke Smith MD PhD LAB BLOOD ORDERA BLES Final Result [facility] [place] [address] * (ABNORMAL) Basic metabolic panel (10/23/2023 9:52 PM HOB MILL OPERATOR) [facility] Sodium 143 135 - 145 mmol/L [facility] Potassium, pl 3.8 3.3 - 4.9 mmol/L [facility] Chloride 102 97 - 110 mmol/L [facility] CO2 20(L) 22 - 32 mmol/L [facility] Anion gap 21(H) 2 - 15 mmol/L [facility] BUN 12 6 - 25 mg/dL [facility] Creatinine 1.06 0.80 - 1.30 mg/dL [facility] Glucose 208(H) 70 - 199 mg/dL [facility] Comment: Interpretive Data Fasting glucose [...] classification and Diagnosis of Diabetes Diabetes Care 2022; 46: S19-S40. Current interpretive data was last revised 2022. Calcium 8.9 8.5 - 10.3 mg/dL [facility] Blood 10/23/2023 9:52 PM HOB MILL OPERATOR 10/23/2023 10:01 PM HOB MILL OPERATOR Myke Smith MD PhD LAB BLOOD ORDERA BLES Final Result Performing Organization Address City/[facility]/ZIP Co de Phone Number [facility] [place] [address] * (ABNORMAL) CBC without differential (10/23/2023 9:52 PM HOB MILL OPERATOR) WBC 23.8(H) 3.8 - 9.9 K/cumm [facility] Hgb 9.8(L) 13.0 - 17.5 g/dL [facility] Hct 32.0(L) 38.9 - 50.3 % [facility] Plt 458(H) 150 - 400 K/cumm [facility] MPV 11.1 9.1 - 12.3 fL [facility] RBC 3.14(L) 4.30 - 5.80 M/cumm [facility] MCV 101.9(H) 81.3 - 96.4 fL [facility] Comment:MCV delta due to manpreet gical procedure. MCH 31.2 27.1 - 33.3 pg [facility] MCHC 30.6(L) 32.3 - 35.7 g/dL [facility] RDW CV 12.5 11.1 - 14.9 % [facility] RDW SD 46.9 35.7 - 48.1 fL [facility] NRBC abs 0.03(H) 0.00 - 0.01 K/cumm [facility] Blood 10/23/2023 9:52 PM HOB MILL OPERATOR 10/23/2023 10:02 PM HOB MILL OPERATOR Myke Smith MD PhD LAB BLOOD ORDERA BLES Final Result Performing Organization Address City/[facility]/ZIP Co de Phone Number [facility] [place] [address] * (ABNORMAL) POC Blood Gas and Chemistries, Venous - (10/23/2023 9:50 PM HOB MILL OPERATOR) pH, Arturo POC 6.99(C) 7.32 - 7.43 [facility] pCO2, arturo POC 84(C) 40 - 50 mmHg [facility] pO2, arturo POC 42 mmHg [facility] Na, POC 139 135 - 145 mmol/L [facility] K POC 5.4(H) 3.3 - 4.9 mmol/L [facility] Comment: Interpretive Data This method is not able to assess for hemolysis, which may falsely increase potassium concentrations. If further testing is needed to evaluate this result, consider in-laboratory plasma potassium. Current Interpretive Data was last revised on 2022. Cl, POC 103 97 - 110 mmol/L [facility] Ionized Ca, POC 4.70 4.50 - 5.10 mg/dL [facility] Glucose, POC 172 70 - 199 mg/dL [facility] Lactate, POC 9.2(C) 0.7 - 2.2 mmol/L [facility] O2 Sat, Arturo POC (Crys) 48 % [facility] Base excess, POC -11.7 mmol/L [facility] Hct, POC 30.0(L) 41.4 - 51.6 % [facility] Total Hb, POC 10.0(L) 13.8 - 17.2 g/dL [facility] O2 Sat, Arturo POC (Calc) 48 % [facility] Blood 10/23/2023 9:50 PM HOB MILL OPERATOR 10/23/2023 9:50 PM HOB MILL OPERATOR us Pipe Moseley MD LAB POCT ORDERABLES - DEV ICE Final Result [facility] [place] [address] * [place] Fluoroscopy < 1 Hour (10/23/2023 8:45 PM HOB MILL OPERATOR) Narrative [email or web address] - 10/23/2023 8:46 PM HOB MILL OPERATOR The images from this study are not interpreted by Radiology. ??Please refer to the physician's procedure / OR operative note. us Hayder Vu Jr., MD IMG FLUOROSCOPY PRO CEDURES Final Result Performing Organization Address [facility] de Phone Number [email or web address] * eGFR (10/22/2023 9:39 PM HOB MILL OPERATOR) eGFR 66 >=60 mL/min/1. 73 m2 [facility] Comment: Interpretive Data Reference Interval [...] interpretive data was last reviewed 2021. Blood 10/22/2023 9:39 PM HOB MILL OPERATOR 10/22/2023 10:23 PM HOB MILL OPERATOR us Jimenez Henao MD LAB BLOOD ORDERABLES Final Result Performing Organization Address [facility] Co de Phone Number [facility] [place] [address] * (ABNORMAL) Differential, auto (10/22/2023 9:39 PM HOB MILL OPERATOR) Neutrophil abs 6.2 1.5 - 6.5 K/cumm [facility] Imm gran abs 0.1 0.0 - 0.1 K/cumm [facility] Lymphocyte abs 1.3 0.8 - 3.3 K/cumm [facility] Monocyte abs 1.1(H) 0.2 - 0.8 K/cumm [facility] [facility] Eosinophil abs 0.1 0.0 - 0.5 K/cumm [facility] Basophil abs 0.1 0.0 - 0.1 K/cumm [facility] Neutrophil pct 70.2 % [facility] Comment: Interpretive Data Percent cell count reference ranges are not reported, since discordance with absolute values may lead to misinterpretation of CBC data. Current Interpretive Data was last revised on 2018. Imm gran pct 1.0 % [facility] Comment: Interpretive Data Percent cell count reference ranges are not reported, since discordance with absolute values may lead to misinterpretation of CBC data. Current Interpretive Data was last revised on 2018. Lymphocyte pct 14.4 % [facility] Comment: Interpretive Data Percent cell count reference ranges are not reported, since discordance with absolute values may lead to misinterpretation of CBC data. Current Interpretive Data was last revised on 2018. Monocyte pct 12.4 % [facility] Comment: Interpretive Data Percent cell count reference ranges are not reported, since discordance with absolute values may lead to misinterpretation of CBC data. Current Interpretive Data was last revised on 2018. Eosinophil pct 1.4 % [facility] Comment: Interpretive Data Percent cell count reference ranges are not reported, since discordance with absolute values may lead to misinterpretation of CBC data. Current Interpretive Data was last revised on 2018. Basophil pct 0.6 % [facility] Comment: Interpretive Data Percent cell count reference ranges are not reported, since discordance with absolute values may lead to misinterpretation of CBC data. Current Interpretive Data was last revised on 2018. Blood 10/22/2023 9:39 PM HOB MILL OPERATOR 10/22/2023 10:17 PM HOB MILL OPERATOR Result Caity Henao MD LAB BLOOD ORDERABLES Final Result Performing Organization Address [facility] [place] [address] * Type and screen (10/22/2023 9:39 PM HOB MILL OPERATOR) Jigna, indirect Negative ABO Rh O Positive [facility] Blood 10/22/2023 9:39 PM HOB MILL OPERATOR 10/22/2023 10:24 PM HOB MILL OPERATOR Narrative [facility] - 10/22/2023 11:35 PM HOB MILL OPERATOR Has the patient had Daratumumab or Isatuximab in the past 6 months?->Unknown Result Caity Henao MD LAB BLOOD BANK TEST O RDERABLES Final Result Performing Organization Address [facility] [place] [address] * Protime-INR (10/22/2023 9:39 PM HOB MILL OPERATOR) PT 12.6 10.3 - 13.7 sec [facility] INR 1.11 0.90 - 1.20 [facility] Comment: Interpretive data Oral anticoagulant therapeutic ranges: Venous thromboembolism prophylaxis or treatment: 2.0-3.0 CARDIOLOGY Standard range: 2.0-3.0 High-intensity range: 2.5-3.5 Refer to indication-specific guidelines for appropriate target ranges for prosthetic heart valve replacement. Current interpretive data was last revised on 2019. Blood 10/22/2023 9:39 PM HOB MILL OPERATOR 10/22/2023 10:26 PM HOB MILL OPERATOR Result Caity Henao MD LAB BLOOD ORDERABLES Final Result Performing Organization Address [facility]/State/ZIP Co de Phone Number [facility] [place] [address] * (ABNORMAL) CBC with auto differential (10/22/2023 9:39 PM HOB MILL OPERATOR) [facility] WBC 8.8 3.8 - 9.9 K/cumm [facility] Hgb 10.5(L) 13.0 - 17.5 g/dL [facility] Hct 30.7(L) 38.9 - 50.3 % [facility] Plt 378 150 - 400 K/cumm [facility] MPV 10.6 9.1 - 12.3 fL [facility] RBC 3.29(L) 4.30 - 5.80 M/cumm [facility] MCV 93.3 81.3 - 96.4 fL [facility] MCH 31.9 27.1 - 33.3 pg [facility] MCHC 34.2 32.3 - 35.7 g/dL [facility] RDW CV 12.4 11.1 - 14.9 % [facility] RDW SD 43.1 35.7 - 48.1 fL [facility] NRBC abs 0.00 0.00 - 0.01 K/cumm [facility] Blood 10/22/2023 9:39 PM HOB MILL OPERATOR 10/22/2023 10:17 PM HOB MILL OPERATOR Tia Nolan [facility] LAB BLOOD ORDERABLES F inal Result [facility] [place] [address] * (ABNORMAL) Basic metabolic panel (10/22/2023 9:39 PM HOB MILL OPERATOR) [facility] Sodium 134(L) 135 - 145 mmol/L [facility] Potassium, pl 4.6 3.3 - 4.9 mmol/L [facility] Chloride 99 97 - 110 mmol/L [facility] CO2 30 22 - 32 mmol/L [facility] Anion gap 5 2 - 15 mmol/L [facility] BUN 12 6 - 25 mg/dL [facility] Creatinine 1.17 0.80 - 1.30 mg/dL [facility] Glucose 121 70 - 199 mg/dL [facility] Comment: Interpretive Data Fasting glucose [...] 2022. Calcium 8.8 8.5 - 10.3 mg/dL [facility] Blood 10/22/2023 9:39 PM HOB MILL OPERATOR 10/22/2023 10:23 PM HOB MILL OPERATOR Tia Nolan [facility] LAB BLOOD ORDERABLES F inal Result [facility] [place] [address] * XR Chest 1 View (10/22/2023 6:24 AM HOB MILL OPERATOR) Anatomical Region Laterality Modality Body, Chest N/A Computed Radiogr aphy 10/22/2023 8:41 AM HOB MILL OPERATOR Impressions 10/22/2023 12:03 PM HOB MILL OPERATOR Comparison is made to CT chest abdomen pelvis 10/12/2023. The left hemidiaphragm is mildly elevated. ??Indeterminant linear density projects over the left supraclavicular region and may be external to the patient. ??The lungs are clear. ??There is no pleural effusion or pneumothorax. ??The heart size is normal. Tortuous aorta. ?? Dictated by: Alice Rios MD, PhD. The radiology attending physician has personally reviewed this study, and had reviewed and/or edited this written report and agrees with it. Electronically signed by: Maritza Miranda M.D. Narrative 10/22/2023 12:03 PM HOB MILL OPERATOR EXAMINATION: 1 view chest radiograph Procedure Note Maritza Miranda MD - 10/22/2023 EXAMINATION: 1 view chest radiograph IMPRESSION: Comparison is made to CT chest abdomen pelvis 10/12/2023. The left hemidiaphragm is mildly elevated. Indeterminant linear density projects over the left supraclavicular region and may be external to the patient. The lungs are clear. There is no pleural effusion or pneumothorax. The heart size is normal. Tortuous aorta. Dictated by: Alice Rios MD, PhD. The radiology attending physician has personally reviewed this study, and had reviewed and/or edited this written report and agrees with it. Electronically signed by: Maritza Miranda M.D. us Mary Thayer MD IMG XR PROCEDURES Final Resul t * eGFR (10/21/2023 10:52 PM HOB MILL OPERATOR) eGFR 78 >=60 mL/min/1. 73 m2 [facility] Comment: Interpretive Data Reference Interval [...] interpretive data was last reviewed 2021. Blood 10/21/2023 10:5 2 PM HOB MILL OPERATOR 10/21/2023 11:16 PM HOB MILL OPERATOR Jimenez Henao MD LAB BLOOD ORDERABLES Final Result [facility] [place] [address] * (ABNORMAL) Differential, auto (10/21/2023 10:52 PM HOB MILL OPERATOR) Neutrophil abs 5.0 1.5 - 6.5 K/cumm [facility] Imm gran abs 0.1 0.0 - 0.1 K/cumm [facility] Lymphocyte abs 1.4 0.8 - 3.3 K/cumm [facility] Monocyte abs 1.1(H) 0.2 - 0.8 K/cumm [facility] Eosinophil abs 0.1 0.0 - 0.5 K/cumm [facility] Basophil abs 0.0 0.0 - 0.1 K/cumm [facility] Neutrophil pct 65.0 % [facility] Comment: Interpretive Data Percent cell count reference ranges are not reported, since discordance with absolute values may lead to misinterpretation of CBC data. Current Interpretive Data was last revised on 2018. Imm gran pct 1.3 % [facility] Comment: Interpretive Data Percent cell count reference ranges are not reported, since discordance with absolute values may lead to misinterpretation of CBC data. Current Interpretive Data was last revised on 2018. Lymphocyte pct 17.8 % [facility] Comment: Interpretive Data Percent cell count reference ranges are not reported, since discordance with absolute values may lead to misinterpretation of CBC data. Current Interpretive Data was last revised on 2018. Monocyte pct 13.6 % [facility] Comment: Interpretive Data Percent cell count reference ranges are not reported, since discordance with absolute values may lead to misinterpretation of CBC data. Current Interpretive Data was last revised on 2018. Eosinophil pct 1.8 % [facility] Comment: Interpretive Data Percent cell count reference ranges are not reported, since discordance with absolute values may lead to misinterpretation of CBC data. Current Interpretive Data was last revised on 2018. Basophil pct 0.5 % [facility] Comment: Interpretive Data Percent cell count reference ranges are not reported, since discordance with absolute values may lead to misinterpretation of CBC data. Current Interpretive Data was last revised on 2018. Blood 10/21/2023 10:5 2 PM HOB MILL OPERATOR 10/21/2023 11:17 PM HOB MILL OPERATOR us Jimenez Henao MD LAB BLOOD ORDERABLES Final Result [facility] [place] [address] * (ABNORMAL) CBC with auto differential (10/21/2023 10:52 PM HOB MILL OPERATOR) Pathologist [facility] WBC 7.7 3.8 - 9.9 K/cumm [facility] Hgb 10.4(L) 13.0 - 17.5 g/dL [facility] Hct 30.1(L) 38.9 - 50.3 % [facility] Plt 350 150 - 400 K/cumm [facility] MPV 10.8 9.1 - 12.3 fL [facility] RBC 3.31(L) 4.30 - 5.80 M/cumm [facility] MCV 90.9 81.3 - 96.4 fL [facility] MCH 31.4 27.1 - 33.3 pg [facility] MCHC 34.6 32.3 - 35.7 g/dL [facility] RDW CV 12.6 11.1 - 14.9 % [facility] RDW SD 41.8 35.7 - 48.1 fL [facility] NRBC abs 0.00 0.00 - 0.01 K/cumm [facility] Blood 10/21/2023 10:5 2 PM HOB MILL OPERATOR 10/21/2023 11:17 PM HOB MILL OPERATOR Tia Nolan [facility] LAB BLOOD ORDERABLES F inal Result Performing Organization Address City/[facility]/ZIP Co de Phone Number [facility] Department [place] [address] * Basic metabolic panel (10/21/2023 10:52 PM HOB MILL OPERATOR) Pathologist [facility] Sodium 136 135 - 145 mmol/L [facility] Potassium, pl 4.5 3.3 - 4.9 mmol/L [facility] Chloride 99 97 - 110 mmol/L [facility] CO2 27 22 - 32 mmol/L [facility] Anion gap 10 2 - 15 mmol/L [facility] BUN 12 6 - 25 mg/dL [facility] Creatinine 1.02 0.80 - 1.30 mg/dL [facility] Glucose 117 70 - 199 mg/dL [facility] Comment: Interpretive Data Fasting glucose [...] interpretive data was last revised 2022. Calcium 8.7 8.5 - 10.3 mg/dL [facility] Blood 10/21/2023 10:5 2 PM HOB MILL OPERATOR 10/21/2023 11:16 PM HOB MILL OPERATOR Tia Nolan [facility] LAB BLOOD ORDERABLES F inal Result Performing Organization Address [facility] Co de Phone Number [facility] Department [place] [address] * eGFR (10/20/2023 9:38 PM HOB MILL OPERATOR) Pathologist [facility] eGFR 80 >=60 mL/min/1. 73 m2 [facility] Comment: Interpretive Data Reference Interval [...] interpretive data was last reviewed 2021. Blood 10/20/2023 9:38 PM HOB MILL OPERATOR 10/20/2023 10:25 PM HOB MILL OPERATOR us Jimenez Henao MD LAB BLOOD ORDERABLES Final Result [facility] Department [place] [address] * (ABNORMAL) Differential, auto (10/20/2023 9:38 PM HOB MILL OPERATOR) Neutrophil abs 5.9 1.5 - 6.5 K/cumm [facility] Imm gran abs 0.2(H) 0.0 - 0.1 K/cumm [facility] Lymphocyte abs 1.1 0.8 - 3.3 K/cumm [facility] Monocyte abs 1.1(H) 0.2 - 0.8 K/cumm [facility] Eosinophil abs 0.2 0.0 - 0.5 K/cumm [facility] Basophil abs 0.1 0.0 - 0.1 K/cumm [facility] Neutrophil pct 69.2 % [facility] Comment: Interpretive Data Percent cell count reference ranges are not reported, since discordance with absolute values may lead to misinterpretation of CBC data. Current Interpretive Data was last revised on 2018. Imm gran pct 2.3 % [facility] Comment: Interpretive Data Percent cell count reference ranges are not reported, since discordance with absolute values may lead to misinterpretation of CBC data. Current Interpretive Data was last revised on 2018. Lymphocyte pct 13.2 % [facility] Comment: Interpretive Data Percent cell count reference ranges are not reported, since discordance with absolute values may lead to misinterpretation of CBC data. Current Interpretive Data was last revised on 2018. Monocyte pct 12.9 % [facility] Comment: Interpretive Data Percent cell count reference ranges are not reported, since discordance with absolute values may lead to misinterpretation of CBC data. Current Interpretive Data was last revised on 2018. Eosinophil pct 1.8 % [facility] Comment: Interpretive Data Percent cell count reference ranges are not reported, since discordance with absolute values may lead to misinterpretation of CBC data. Current Interpretive Data was last revised on 2018. Basophil pct 0.6 % [facility] Comment: Interpretive Data Percent cell count reference ranges are not reported, since discordance with absolute values may lead to misinterpretation of CBC data. Current Interpretive Data was last revised on 2018. Blood 10/20/2023 9:38 PM HOB MILL OPERATOR 10/20/2023 10:25 PM HOB MILL OPERATOR Jimenez Henao MD LAB BLOOD ORDERABLES Final Result [facility] [place] [address] * (ABNORMAL) CBC with auto differential (10/20/2023 9:38 PM HOB MILL OPERATOR) [facility] WBC 8.5 3.8 - 9.9 K/cumm [facility] Hgb 11.0(L) 13.0 - 17.5 g/dL [facility] Comment: Interpretive Data A reference range for this assay has not been established for patients with an unknown legal sex. Please refer to the laboratory test catalog for established sex-specific reference intervals. Current interpretive data was last revised on 2023. Hct 32.7(L) 38.9 - 50.3 % [facility] Comment: Interpretive Data A reference range for this assay has not been established for patients with an unknown legal sex. Please refer to the laboratory test catalog for established sex-specific reference intervals. Current interpretive data was last revised on 2023. Plt 321 150 - 400 K/cumm [facility] MPV 11.0 9.1 - 12.3 fL [facility] RBC 3.50(L) 4.30 - 5.80 M/cumm [facility] Comment: Interpretive Data A reference range for this assay has not been established for patients with an unknown legal sex. Please refer to the laboratory test catalog for established sex-specific reference intervals. Current interpretive data was last revised on 2023. MCV 93.4 81.3 - 96.4 fL [facility] MCH 31.4 27.1 - 33.3 pg [facility] MCHC 33.6 32.3 - 35.7 g/dL [facility] RDW CV 12.5 11.1 - 14.9 % [facility] RDW SD 43.2 35.7 - 48.1 fL [facility] NRBC abs 0.00 0.00 - 0.01 K/cumm [facility] Blood 10/20/2023 9:38 PM HOB MILL OPERATOR 10/20/2023 10:25 PM HOB MILL OPERATOR us Tia Nolan NP LAB BLOOD ORDERABLES F inal Result [facility] [place] [address] * (ABNORMAL) Basic metabolic panel (10/20/2023 9:38 PM HOB MILL OPERATOR) Pathologist [facility] Sodium 134(L) 135 - 145 mmol/L [facility] Potassium, pl 4.5 3.3 - 4.9 mmol/L [facility] Chloride 97 97 - 110 mmol/L [facility] CO2 27 22 - 32 mmol/L [facility] Anion gap 10 2 - 15 mmol/L [facility] BUN 12 6 - 25 mg/dL [facility] Creatinine 1.00 0.80 - 1.30 mg/dL [facility] Glucose 127 70 - 199 mg/dL [facility] Comment: Interpretive Data Fasting glucose [...] interpretive data was last revised 2022. Calcium 8.9 8.5 - 10.3 mg/dL [facility] Blood 10/20/2023 9:38 PM HOB MILL OPERATOR 10/20/2023 10:25 PM HOB MILL OPERATOR Tia Nolan [facility] LAB BLOOD ORDERABLES F inal Result [facility] [place] [address] * eGFR (10/19/2023 9:11 PM HOB MILL OPERATOR) Pathologist [facility] eGFR 81 >=60 mL/min/1. 73 m2 [facility] Comment: Interpretive Data Reference Interval [...] interpretive data was last reviewed 2021. Blood 10/19/2023 9:11 PM HOB MILL OPERATOR 10/19/2023 11:30 PM HOB MILL OPERATOR us Jimenez Henao MD LAB BLOOD ORDERABLES Final Result [facility] [place] [address] * (ABNORMAL) Differential, auto (10/19/2023 9:11 PM HOB MILL OPERATOR) Pathologist [facility] Neutrophil abs 8.2(H) 1.5 - 6.5 K/cumm [facility] Imm gran abs 0.2(H) 0.0 - 0.1 K/cumm [facility] Lymphocyte abs 0.9 0.8 - 3.3 K/cumm [facility] Monocyte abs 0.8 0.2 - 0.8 K/cumm [facility] Eosinophil abs 0.2 0.0 - 0.5 K/cumm [facility] Basophil abs 0.1 0.0 - 0.1 K/cumm [facility] Neutrophil pct 79.6 % [facility] Comment: Interpretive Data Percent cell count reference ranges are not reported, since discordance with absolute values may lead to misinterpretation of CBC data. Current Interpretive Data was last revised on 2018. Imm gran pct 2.0 % [facility] Comment: Interpretive Data Percent cell count reference ranges are not reported, since discordance with absolute values may lead to misinterpretation of CBC data. Current Interpretive Data was last revised on 2018. Lymphocyte pct 8.3 % [facility] Comment: Interpretive Data Percent cell count reference ranges are not reported, since discordance with absolute values may lead to misinterpretation of CBC data. Current Interpretive Data was last revised on 2018. Monocyte pct 8.0 % [facility] Comment: Interpretive Data Percent cell count reference ranges are not reported, since discordance with absolute values may lead to misinterpretation of CBC data. Current Interpretive Data was last revised on 2018. Eosinophil pct 1.6 % [facility] Comment: Interpretive Data Percent cell count reference ranges are not reported, since discordance with absolute values may lead to misinterpretation of CBC data. Current Interpretive Data was last revised on 2018. Basophil pct 0.5 % [facility] Comment: Interpretive Data Percent cell count reference ranges are not reported, since discordance with absolute values may lead to misinterpretation of CBC data. Current Interpretive Data was last revised on 2018. Blood 10/19/2023 9:11 PM HOB MILL OPERATOR 10/19/2023 11:31 PM HOB MILL OPERATOR Jimenez Henao MD LAB BLOOD ORDERABLES Final Result [facility] [place] [address] * (ABNORMAL) CBC with auto differential (10/19/2023 9:11 PM HOB MILL OPERATOR) WBC 10.3(H) 3.8 - 9.9 K/cumm [facility] Hgb 11.0(L) 13.0 - 17.5 g/dL [facility] Comment: Interpretive Data A reference range for this assay has not been established for patients with an unknown legal sex. Please refer to the laboratory test catalog for established sex-specific reference intervals. Current interpretive data was last revised on 2023. Hct 31.6(L) 38.9 - 50.3 % [facility] Comment: Interpretive Data A reference range for this assay has not been established for patients with an unknown legal sex. Please refer to the laboratory test catalog for established sex-specific reference intervals. Current interpretive data was last revised on 2023. Plt 281 150 - 400 K/cumm [facility] MPV 11.5 9.1 - 12.3 fL [facility] RBC 3.46(L) 4.30 - 5.80 M/cumm [facility] Comment: Interpretive Data A reference range for this assay has not been established for patients with an unknown legal sex. Please refer to the laboratory test catalog for established sex-specific reference intervals. Current interpretive data was last revised on 2023. MCV 91.3 81.3 - 96.4 fL [facility] MCH 31.8 27.1 - 33.3 pg [facility] MCHC 34.8 32.3 - 35.7 g/dL [facility] RDW CV 12.7 11.1 - 14.9 % [facility] RDW SD 42.2 35.7 - 48.1 fL [facility] NRBC abs 0.00 0.00 - 0.01 K/cumm [facility] Blood 10/19/2023 9:11 PM HOB MILL OPERATOR 10/19/2023 11:31 PM HOB MILL OPERATOR us Tia Nolan [facility] LAB BLOOD ORDERABLES F inal Result [facility] Department [place] [address] * Basic metabolic panel (10/19/2023 9:11 PM HOB MILL OPERATOR) Sodium 135 135 - 145 mmol/L [facility] Potassium, pl 4.3 3.3 - 4.9 mmol/L [facility] Chloride 99 97 - 110 mmol/L [facility] CO2 27 22 - 32 mmol/L [facility] Anion gap 9 2 - 15 mmol/L [facility] BUN 17 6 - 25 mg/dL [facility] Creatinine 0.99 0.80 - 1.30 mg/dL [facility] Glucose 185 70 - 199 mg/dL [facility] Comment: Interpretive Data Fasting glucose [...] 2022. Calcium 8.6 8.5 - 10.3 mg/dL [facility] Blood 10/19/2023 9:11 PM HOB MILL OPERATOR 10/19/2023 11:30 PM HOB MILL OPERATOR us Tia Nolan [facility] LAB BLOOD ORDERABLES F inal Result [facility] [place] [address] * eGFR (10/18/2023 9:29 PM HOB MILL OPERATOR) eGFR 87 >=60 mL/min/1. 73 m2 [facility] Comment: Interpretive Data Reference Interval [...] interpretive data was last reviewed 2021. Blood 10/18/2023 9:29 PM HOB MILL OPERATOR 10/18/2023 10:27 PM HOB MILL OPERATOR us Jimenez Henao MD LAB BLOOD ORDERABLES Final Result [facility] [place] [address] * (ABNORMAL) Differential, auto (10/18/2023 9:29 PM HOB MILL OPERATOR) Neutrophil abs 13.6(H) 1.5 - 6.5 K/cumm [facility] Imm gran abs 0.2(H) 0.0 - 0.1 K/cumm [facility] Lymphocyte abs 1.4 0.8 - 3.3 K/cumm [facility] Monocyte abs 1.0(H) 0.2 - 0.8 K/cumm [facility] Eosinophil abs 0.2 0.0 - 0.5 K/cumm [facility] Basophil abs 0.0 0.0 - 0.1 K/cumm [facility] Neutrophil pct 82.8 % [facility] Comment: Interpretive Data Percent cell count reference ranges are not reported, since discordance with absolute values may lead to misinterpretation of CBC data. Current Interpretive Data was last revised on 2018. Imm gran pct 1.5 % [facility] Comment: Interpretive Data Percent cell count reference ranges are not reported, since discordance with absolute values may lead to misinterpretation of CBC data. Current Interpretive Data was last revised on 2018. Lymphocyte pct 8.4 % [facility] Comment: Interpretive Data Percent cell count reference ranges are not reported, since discordance with absolute values may lead to misinterpretation of CBC data. Current Interpretive Data was last revised on 2018. Monocyte pct 6.1 % [facility] Comment: Interpretive Data Percent cell count reference ranges are not reported, since discordance with absolute values may lead to misinterpretation of CBC data. Current Interpretive Data was last revised on 2018. Eosinophil pct 1.0 % [facility] Comment: Interpretive Data Percent cell count reference ranges are not reported, since discordance with absolute values may lead to misinterpretation of CBC data. Current Interpretive Data was last revised on 2018. Basophil pct 0.2 % [facility] Comment: Interpretive Data Percent cell count reference ranges are not reported, since discordance with absolute values may lead to misinterpretation of CBC data. Current Interpretive Data was last revised on 2018. Blood 10/18/2023 9:29 PM HOB MILL OPERATOR 10/18/2023 10:27 PM HOB MILL OPERATOR us Jimenez Henao MD LAB BLOOD ORDERABLES Final Result [facility] [place] [address] * (ABNORMAL) CBC with auto differential (10/18/2023 9:29 PM HOB MILL OPERATOR) Pathologist [facility] WBC 16.4(H) 3.8 - 9.9 K/cumm [facility] Hgb 11.3(L) 13.0 - 17.5 g/dL [facility] Comment: Interpretive Data A reference range for this assay has not been established for patients with an unknown legal sex. Please refer to the laboratory test catalog for established sex-specific reference intervals. Current interpretive data was last revised on 2023. Hct 32.8(L) 38.9 - 50.3 % [facility] Comment: Interpretive Data A reference range for this assay has not been established for patients with an unknown legal sex. Please refer to the laboratory test catalog for established sex-specific reference intervals. Current interpretive data was last revised on 2023. Plt 286 150 - 400 K/cumm [facility] MPV 11.3 9.1 - 12.3 fL [facility] RBC 3.53(L) 4.30 - 5.80 M/cumm [facility] Comment: Interpretive Data A reference range for this assay has not been established for patients with an unknown legal sex. Please refer to the laboratory test catalog for established sex-specific reference intervals. Current interpretive data was last revised on 2023. MCV 92.9 81.3 - 96.4 fL [facility] MCH 32.0 27.1 - 33.3 pg [facility] MCHC 34.5 32.3 - 35.7 g/dL [facility] RDW CV 12.6 11.1 - 14.9 % [facility] RDW SD 43.3 35.7 - 48.1 fL [facility] NRBC abs 0.00 0.00 - 0.01 K/cumm [facility] Blood 10/18/2023 9:29 PM HOB MILL OPERATOR 10/18/2023 10:27 PM HOB MILL OPERATOR Tia Nolan [facility] LAB BLOOD ORDERABLES F inal Result [facility] [place] [address] * (ABNORMAL) Basic metabolic panel (10/18/2023 9:29 PM HOB MILL OPERATOR) Sodium 132(L) 135 - 145 mmol/L [facility] Potassium, pl 4.0 3.3 - 4.9 mmol/L [facility] Chloride 97 97 - 110 mmol/L [facility] CO2 27 22 - 32 mmol/L [facility] Anion gap 8 2 - 15 mmol/L [facility] BUN 16 6 - 25 mg/dL [facility] Creatinine 0.93 0.80 - 1.30 mg/dL [facility] Glucose 151 70 - 199 mg/dL [facility] Comment: Interpretive Data Fasting glucose [...] 2022. Calcium 8.2(L) 8.5 - 10.3 mg/dL [facility] Blood 10/18/2023 9:29 PM HOB MILL OPERATOR 10/18/2023 10:27 PM HOB MILL OPERATOR us Tia Nolan NP LAB BLOOD ORDERABLES F inal Result [facility] [place] [address] * Dexa Axial Skeleton Bone Density 1 or 2 Site (10/18/2023 12:45 PM HOB MILL OPERATOR) Anatomical Region Laterality Modality Body N/A Digital Radiogra phy 10/18/2023 1:29 PM HOB MILL OPERATOR Impressions 10/18/2023 2:27 PM HOB MILL OPERATOR ?? 1. The bone mineral density of the lumbar spine is normal. ?? 2. The bone mineral density of the left femoral neck is normal. ?? 3. The bone mineral density of the left total hip is normal. ?? 4. Overall, the above findings are normal by WHO criteria. 5. Calculation of fracture risk using the FRAX model is not appropriate in certain settings. ??It was not performed in this patient because the patient met the following condition(s): ??normal bone density. General comments regarding interpretation of bone density measurements: ? A) ??In children, premenopausal woman and males under age 50 not at increased risk for fractures only Z-scores, not T-scores are used to indicate risk. ??A Z-score above -2.0 is defined as within the expected range for age and Z-score at or less than -2.0 is below the expected range for age . ??A Z-score below the expected range for age in a patient with recent fractures and/or chronic corticosteroid treatment is consistent with a diagnosis of osteoporosis. ? B) ??In post menopausal women and males over 50, comparison of the measured bone mineral density with the average value in young normal subjects (the T-score ) has been found to be useful in assessing fracture risk. ??Fracture risk approximately doubles for each 1.0 standard deviation (SD) in individual's hip or spine bone mineral density is below the average value of young normal subjects. ??The World Health Organization (WHO) has defined T-scores of -1.0 to -2.5 as diagnostic of low bone mass (OSTEOPENIA), and T-scores of -2.5 or lower to be diagnostic of OSTEOPOROSIS, based on the site of lowest bone density. ? Note that there will be a change in reporting format and reference databases as patients move from the younger population (group A) to the older population (group B) The National Osteoporosis Foundation (www.nof.org) recommends adequate intake of calcium and vitamin D and regular weight-bearing exercise in all patients. ??They recommend pharmacologic treatment in postmenopausal women and men age 50 and older presenting with any of the following: ? 1) ? Osteoporosis, after appropriate evaluation to exclude secondary causes. ? 2) ? A hip or vertebral (clinical or radiographic) fracture, regardless of the bone density. ? 3) ? Low bone mass (Osteopenia) and one or more of: other prior fractures, secondary causes associated with high risk of fracture (such as glucocorticoid use or total immobilization), or computed high risk of fracture (10-yr probability of hip fracture >= 3% or a 10-yr probability of any major osteoporosis-related fracture >= 20% based on the [place].-adapted WHO algorithm), available at http://www.shef.ac.uk/FRAX). Dictated by: Gypsy Pelletier M.D. The radiology attending physician has personally reviewed this study, and had reviewed and/or edited this written report and agrees with it. Electronically signed by: Nikki Bella MD, Ph.D Narrative 10/18/2023 2:27 PM HOB MILL OPERATOR BONE DENSITOMETRY OF THE SPINE AND HIP ?? DATE OF STUDY: ??10/18/2023 ?? HISTORY: ??73-year-old man with presurgical evaluation for L5/S1 spinal fusion. ??He is being treated with vitamin D. ??Evaluate bone mineral density. ?? Additional risk factors for fracture: [Prior smoking]. ?? FINDINGS (SPINE): The bone mineral density of L1-L4 was assessed by dual-energy x-ray absorptiometry. The average bone mineral density within this region is 1.041 gm/sq-cm. This is 0.5 standard deviations above the mean of the average bone mineral density for age- and gender-matched subjects (the Z-score). It is 0.1 standard deviations below the mean peak bone mineral density in young adults (the T-score). ?? FINDINGS (FEMORAL NECK): The bone mineral density of the left femoral neck was assessed by dual-energy x-ray absorptiometry. The average bone mineral density within the femoral neck region is 0.811 gm/sq-cm. This is 0.4 standard deviations above the mean of the average bone mineral density for age- and gender-matched subjects (the Z-score). It is 0.3 standard deviations below the mean peak bone mineral density in young adults (the T-score). ?? FINDINGS (TOTAL HIP): The bone mineral density of the left hip was assessed by dual-energy x-ray absorptiometry. The average bone mineral density within the total hip region is 0.865 gm/sq-cm. This is 0.4 standard deviations below the mean of the average bone mineral density for age- and gender-matched subjects (the Z-score). It is 0.6 standard deviations below the mean peak bone mineral density in young adults (the T-score). ?? SUMMARY OF CURRENT RESULTS: Region ? BMD ?T-score ??Z-score ?? AP Spine (L1-L4) ? 1.041 ?? -0.1 ?0.5 ? Femoral Neck (Left) ?0.811 ?? -0.3 ?0.4 ? Total Hip (Left) ? 0.865 ?? -0.6 ? -0.4 ? Procedure Note Nikki Perez MD PhD - 10/18/2023 BONE DENSITOMETRY OF THE SPINE AND HIP DATE OF STUDY: 10/18/2023 HISTORY: 73-year-old man with presurgical evaluation for L5/S1 spinal fusion. He is being treated with vitamin D. Evaluate bone mineral density. Additional risk factors for fracture: [Prior smoking]. FINDINGS (SPINE): The bone mineral density of L1-L4 was assessed by dual-energy x-ray absorptiometry. The average bone mineral density within this region is 1.041 gm/sq-cm. This is 0.5 standard deviations above the mean of the average bone mineral density for age- and gender-matched subjects (the Z-score). It is 0.1 standard deviations below the mean peak bone mineral density in young adults (the T-score). FINDINGS (FEMORAL NECK): The bone mineral density of the left femoral neck was assessed by dual-energy x-ray absorptiometry. The average bone mineral density within the femoral neck region is 0.811 gm/sq-cm. This is 0.4 standard deviations above the mean of the average bone mineral density for age- and gender-matched subjects (the Z-score). It is 0.3 standard deviations below the mean peak bone mineral density in young adults (the T-score). FINDINGS (TOTAL HIP): The bone mineral density of the left hip was assessed by dual-energy x-ray absorptiometry. The average bone mineral density within the total hip region is 0.865 gm/sq-cm. This is 0.4 standard deviations below the mean of the average bone mineral density for age- and gender-matched subjects (the Z-score). It is 0.6 standard deviations below the mean peak bone mineral density in young adults (the T-score). SUMMARY OF CURRENT RESULTS: Region BMD T-score Z-score AP Spine (L1-L4) 1.041 -0.1 0.5 Femoral Neck (Left) 0.811 -0.3 0.4 Total Hip (Left) 0.865 -0.6 -0.4 IMPRESSION: 1. The bone mineral density of the lumbar spine is normal. 2. The bone mineral density of the left femoral neck is normal. 3. The bone mineral density of the left total hip is normal. 4. Overall, the above findings are normal by WHO criteria. 5. Calculation of fracture risk using the FRAX model is not appropriate in certain settings. It was not performed in this patient because the patient met the following condition(s): normal bone density. General comments regarding interpretation of bone density measurements: A) In children, premenopausal woman and males under age 50 not at increased risk for fractures only Z-scores, not T-scores are used to indicate risk. A Z-score above -2.0 is defined as within the expected range for age and Z-score at or less than -2.0 is below the expected range for age . A Z-score below the expected range for age in a patient with recent fractures and/or chronic corticosteroid treatment is consistent with a diagnosis of osteoporosis. B) In post menopausal women and males over 50, comparison of the measured bone mineral density with the average value in young normal subjects (the T-score ) has been found to be useful in assessing fracture risk. Fracture risk approximately doubles for each 1.0 standard deviation (SD) in individual's hip or spine bone mineral density is below the average value of young normal subjects. The World Health Organization (WHO) has defined T-scores of -1.0 to -2.5 as diagnostic of low bone mass (OSTEOPENIA), and T-scores of -2.5 or lower to be diagnostic of OSTEOPOROSIS, based on the site of lowest bone density. Note that there will be a change in reporting format and reference databases as patients move from the younger population (group A) to the older population (group B) The National Osteoporosis Foundation (www.nof.org) recommends adequate intake of calcium and vitamin D and regular weight-bearing exercise in all patients. They recommend pharmacologic treatment in postmenopausal women and men age 50 and older presenting with any of the followin) Osteoporosis, after appropriate evaluation to exclude secondary causes. 2) A hip or vertebral (clinical or radiographic) fracture, regardless of the bone density. 3) Low bone mass (Osteopenia) and one or more of: other prior fractures, secondary causes associated with high risk of fracture (such as glucocorticoid use or total immobilization), or computed high risk of fracture (10-yr probability of hip fracture >= 3% or a 10-yr probability of any major osteoporosis-related fracture >= 20% based on the [place].-adapted WHO algorithm), available at http://www.shef.ac.uk/FRAX). Dictated by: Gypys Pelletier M.D. The radiology attending physician has personally reviewed this study, and had reviewed and/or edited this written report and agrees with it. Electronically signed by: Nikki Bella MD, Ph.D Jimenez Henao MD IMG DXA PROCEDURES Fi nal Result * [place] Fluoroscopy < 1 Hour (10/18/2023 11:27 AM HOB MILL OPERATOR) Narrative [id number] - 10/18/2023 11:27 AM HOB MILL OPERATOR The images from this study are not interpreted by Radiology. ??Please refer to the physician's procedure / OR operative note. us Gabriel Bennett MD IMG FLUOROSCOPY PROCEDURES Fide l Result Performing Organization Address [facility] Co de Phone Number [id number] * eGFR (10/17/2023 10:52 PM HOB MILL OPERATOR) eGFR 83 >=60 mL/min/1. 73 m2 [facility] Comment: Interpretive Data Reference Interval Normal [...] interpretive data was last reviewed 2021. Blood 10/17/2023 10:5 2 PM HOB MILL OPERATOR 10/17/2023 11:04 PM HOB MILL OPERATOR us Jimenez Henao MD LAB BLOOD ORDERABLES Final Result Performing Organization Address [facility] Co de Phone Number [facility] [place] [address] * (ABNORMAL) Differential, auto (10/17/2023 10:52 PM HOB MILL OPERATOR) Neutrophil abs 9.0(H) 1.5 - 6.5 K/cumm [facility] Imm gran abs 0.2(H) 0.0 - 0.1 K/cumm [facility] Lymphocyte abs 1.4 0.8 - 3.3 K/cumm [facility] Monocyte abs 0.8 0.2 - 0.8 K/cumm [facility] Eosinophil abs 0.2 0.0 - 0.5 K/cumm [facility] Basophil abs 0.1 0.0 - 0.1 K/cumm [facility] Neutrophil pct 77.7 % [facility] Comment: Interpretive Data Percent cell count reference ranges are not reported, since discordance with absolute values may lead to misinterpretation of CBC data. Current Interpretive Data was last revised on 2018. Imm gran pct 1.7 % [facility] Comment: Interpretive Data Percent cell count reference ranges are not reported, since discordance with absolute values may lead to misinterpretation of CBC data. Current Interpretive Data was last revised on 2018. Lymphocyte pct 11.7 % [facility] Comment: Interpretive Data Percent cell count reference ranges are not reported, since discordance with absolute values may lead to misinterpretation of CBC data. Current Interpretive Data was last revised on 2018. Monocyte pct 6.8 % [facility] Comment: Interpretive Data Percent cell count reference ranges are not reported, since discordance with absolute values may lead to misinterpretation of CBC data. Current Interpretive Data was last revised on 2018. Eosinophil pct 1.7 % [facility] Comment: Interpretive Data Percent cell count reference ranges are not reported, since discordance with absolute values may lead to misinterpretation of CBC data. Current Interpretive Data was last revised on 2018. Basophil pct 0.4 % [facility] Comment: Interpretive Data Percent cell count reference ranges are not reported, since discordance with absolute values may lead to misinterpretation of CBC data. Current Interpretive Data was last revised on 2018. Blood 10/17/2023 10:5 2 PM HOB MILL OPERATOR 10/17/2023 11:04 PM HOB MILL OPERATOR us Jimenez Henao MD LAB BLOOD ORDERABLES Final Result Performing Organization Address [facility] de Phone Number [facility] [place] [address] * aPTT (10/17/2023 10:52 PM HOB MILL OPERATOR) aPTT 32 28 - 38 sec [facility] Comment: Interpretive Data Heparin therapeutic range: 66.0 - 100.0 seconds. Range based on correlation with therapeutic heparin activity range of 0.3 - 0.7 Units/mL. Current interpretive data was last revised on 2023. Blood 10/17/2023 10:5 2 PM HOB MILL OPERATOR 10/17/2023 11:07 PM HOB MILL OPERATOR us Jimenez Henao MD LAB BLOOD ORDERABLES Final Result Performing Organization Address [facility] [place] [place] [address] * Protime-INR (10/17/2023 10:52 PM HOB MILL OPERATOR) PT 12.6 10.3 - 13.7 sec [facility] INR 1.11 0.90 - 1.20 [facility] Comment: Interpretive data Oral anticoagulant therapeutic ranges: Venous thromboembolism prophylaxis or treatment: 2.0-3.0 CARDIOLOGY Standard range: 2.0-3.0 High-intensity range: 2.5-3.5 Refer to indication-specific guidelines for appropriate target ranges for prosthetic heart valve replacement. Current interpretive data was last revised on 2019. Blood 10/17/2023 10:5 2 PM HOB MILL OPERATOR 10/17/2023 11:07 PM HOB MILL OPERATOR Result Caity Henao MD LAB BLOOD ORDERABLES Final Result [facility] [place] [address] * (ABNORMAL) CBC with auto differential (10/17/2023 10:52 PM HOB MILL OPERATOR) [facility] WBC 11.6(H) 3.8 - 9.9 K/cumm [facility] Hgb 11.7(L) 13.0 - 17.5 g/dL [facility] Comment: Interpretive Data A reference range for this assay has not been established for patients with an unknown legal sex. Please refer to the laboratory test catalog for established sex-specific reference intervals. Current interpretive data was last revised on 2023. Hct 33.3(L) 38.9 - 50.3 % [facility] Comment: Interpretive Data A reference range for this assay has not been established for patients with an unknown legal sex. Please refer to the laboratory test catalog for established sex-specific reference intervals. Current interpretive data was last revised on 2023. Plt 256 150 - 400 K/cumm [facility] MPV 11.0 9.1 - 12.3 fL [facility] RBC 3.68(L) 4.30 - 5.80 M/cumm [facility] Comment: Interpretive Data A reference range for this assay has not been established for patients with an unknown legal sex. Please refer to the laboratory test catalog for established sex-specific reference intervals. Current interpretive data was last revised on 2023. MCV 90.5 81.3 - 96.4 fL [facility] MCH 31.8 27.1 - 33.3 pg [facility] MCHC 35.1 32.3 - 35.7 g/dL [facility] RDW CV 12.5 11.1 - 14.9 % [facility] RDW SD 41.4 35.7 - 48.1 fL [facility] NRBC abs 0.00 0.00 - 0.01 K/cumm [facility] Blood 10/17/2023 10:5 2 PM HOB MILL OPERATOR 10/17/2023 11:04 PM HOB MILL OPERATOR us Tia Nolan CR[facility]ER[facility]IST LAB BLOOD ORDERABLES F inal Result [facility] [place] [address] * (ABNORMAL) Basic metabolic panel (10/17/2023 10:52 PM HOB MILL OPERATOR) Sodium 133(L) 135 - 145 mmol/L [facility] Potassium, pl 3.5 3.3 - 4.9 mmol/L [facility] Chloride 100 97 - 110 mmol/L [facility] CO2 27 22 - 32 mmol/L [facility] Anion gap 6 2 - 15 mmol/L [facility] BUN 12 6 - 25 mg/dL [facility] Creatinine 0.97 0.80 - 1.30 mg/dL [facility] Glucose 186 70 - 199 mg/dL [facility] Comment: Interpretive Data Fasting glucose [...] 2022. Calcium 8.4(L) 8.5 - 10.3 mg/dL [facility] Blood 10/17/2023 10:5 2 PM HOB MILL OPERATOR 10/17/2023 11:04 PM HOB MILL OPERATOR Tia Nolan CR[facility]ER[facility] LAB BLOOD ORDERABLES F inal Result Performing Organization Address [facility]/ZIP Co de Phone Number [facility] [place] [address] * CT Urogram WO 3D (10/16/2023 12:36 PM HOB MILL OPERATOR) Anatomical Region Laterality Modality Body N/A Computed Tomogra phy 10/16/2023 1:29 PM HOB MILL OPERATOR Impressions 10/16/2023 1:59 PM HOB MILL OPERATOR 1. ??Postprocedural changes of percutaneous nephrostomy tube placement with perinephric hematoma, which is similar to the prior ultrasound. Blood products extend along the left retroperitoneal fascial planes. 2. ??The obstructing left mid ureteral stone has displaced superiorly within the upper ureter. ??A stone previously identified in the left inferior renal pole has displaced into the proximal left ureter. ??A small amount of blood clot is present in the proximal left ureter. 3. ??Interval improvement in left hydronephrosis with persistent transition point at the left mid-ureter, with associated focal wall thickening. ??This may represent inflammatory thickening/spasm related to prior impacted stone versus pre-existing stricture predisposing the patient to stone formation. Dictated by: Dmitry Thompson MD The radiology attending physician has personally reviewed this study, and had reviewed and/or edited this written report and agrees with it. Electronically signed by: Eric Irene M.D. Narrative 10/16/2023 1:59 PM HOB MILL OPERATOR EXAMINATION: CT UROGRAPHY WITH AND WITHOUT CONTRAST HISTORY: Hydronephrosis, perirenal hematoma. ??Imaging for follow-up. TECHNIQUE: ??CT urography of the abdomen and pelvis was performed prior to and following the uneventful intravenous administration of 120 mL Optiray 350 in the combined nephrographic and excretory phases according to a split bolus protocol. COMPARISON: Ultrasound dated 10/14/2023 FINDINGS: UROGRAPHIC FINDINGS: Right Kidney: The right kidney is normal size. A subcentimeter hypoattenuating lesion in the lateral interpolar region is too small to characterize but likely represents a cyst. A 3 millimeter nonobstructing calculus is present in the upper pole. There is no hydronephrosis. The ureter is normal. The urothelium appears normal. Left Kidney: The left kidney is normal size. ??There is redemonstration of a perinephric hematoma measuring 13 mm in thickness, unchanged. ??The hemorrhage extends along the left retroperitoneal fascial planes. ??A percutaneous nephrostomy courses through a posterior interpolar calyx and is looped within the proximal ureter. ??The adjacent ureter demonstrates wall thickening, likely reactive. ??A small amount of extraluminal gas remains present. A 6 x 2 mm previously obstructing ureteral stone is present now displaced superiorly within the dilated upper ureter. ??A stone previously identified in the inferior pole has displaced into the proximal ureter. ??An irregular filling defect surrounding the catheter pigtail likely represents blood clot. ??The proximal ureter is dilated with transition point at the site of prior obstruction with marked narrowing and tortuosity which may represent spasm or a pre-existing stricture predisposing the patient to stone formation and obstruction. ??The renal parenchyma demonstrates wedge-shaped areas of hypoattenuation which may represent infarcts, pyelonephritis, or interval progression of obstructive nephropathy, poorly assessed due to phase of contrast. ?? The distal ureter is normal. Bladder: There is no wall thickening. The urinary bladder is distended despite Harris catheter in place, likely due to clamping for imaging. NON-UROGRAPHIC FINDINGS: Lower chest: Bilateral pleural effusions have increased study. Hepatobiliary: Multiple cysts are redemonstrated in the liver. ??The right hemiliver is atrophic. ??The left hemiliver hypertrophy. The gallbladder is normal. ??The bile ducts are non-dilated. Pancreas: Normal. Spleen: Normal. Adrenals: Normal. Gastrointestinal: The stomach is unremarkable. There are no dilated loops of small or large bowel. Vasculature: Aorta and branch vessels are atherosclerotic. Pelvis: Postoperative changes of prostatectomy are redemonstrated. Bones/Soft Tissues: No suspicious lytic or blastic bone lesion. Degenerative changes are noted in the spine. No suspicious soft tissue lesion identified. Procedure Note Eric Irene MD - 10/16/2023 EXAMINATION: CT UROGRAPHY WITH AND WITHOUT CONTRAST HISTORY: Hydronephrosis, perirenal hematoma. Imaging for follow-up. TECHNIQUE: CT urography of the abdomen and pelvis was performed prior to and following the uneventful intravenous administration of 120 mL Optiray 350 in the combined nephrographic and excretory phases according to a split bolus protocol. COMPARISON: Ultrasound dated 10/14/2023 FINDINGS: UROGRAPHIC FINDINGS: Right Kidney: The right kidney is normal size. A subcentimeter hypoattenuating lesion in the lateral interpolar region is too small to characterize but likely represents a cyst. A 3 millimeter nonobstructing calculus is present in the upper pole. There is no hydronephrosis. The ureter is normal. The urothelium appears normal. Left Kidney: The left kidney is normal size. There is redemonstration of a perinephric hematoma measuring 13 mm in thickness, unchanged. The hemorrhage extends along the left retroperitoneal fascial planes. A percutaneous nephrostomy courses through a posterior interpolar calyx and is looped within the proximal ureter. The adjacent ureter demonstrates wall thickening, likely reactive. A small amount of extraluminal gas remains present. A 6 x 2 mm previously obstructing ureteral stone is present now displaced superiorly within the dilated upper ureter. A stone previously identified in the inferior pole has displaced into the proximal ureter. An irregular filling defect surrounding the catheter pigtail likely represents blood clot. The proximal ureter is dilated with transition point at the site of prior obstruction with marked narrowing and tortuosity which may represent spasm or a pre-existing stricture predisposing the patient to stone formation and obstruction. The renal parenchyma demonstrates wedge-shaped areas of hypoattenuation which may represent infarcts, pyelonephritis, or interval progression of obstructive nephropathy, poorly assessed due to phase of contrast. The distal ureter is normal. Bladder: There is no wall thickening. The urinary bladder is distended despite Harris catheter in place, likely due to clamping for imaging. NON-UROGRAPHIC FINDINGS: Lower chest: Bilateral pleural effusions have increased study. Hepatobiliary: Multiple cysts are redemonstrated in the liver. The right hemiliver is atrophic. The left hemiliver hypertrophy. The gallbladder is normal. The bile ducts are non-dilated. Pancreas: Normal. Spleen: Normal. Adrenals: Normal. Gastrointestinal: The stomach is unremarkable. There are no dilated loops of small or large bowel. Vasculature: Aorta and branch vessels are atherosclerotic. Pelvis: Postoperative changes of prostatectomy are redemonstrated. Bones/Soft Tissues: No suspicious lytic or blastic bone lesion. Degenerative changes are noted in the spine. No suspicious soft tissue lesion identified. IMPRESSION: 1. Postprocedural changes of percutaneous nephrostomy tube placement with perinephric hematoma, which is similar to the prior ultrasound. Blood products extend along the left retroperitoneal fascial planes. 2. The obstructing left mid ureteral stone has displaced superiorly within the upper ureter. A stone previously identified in the left inferior renal pole has displaced into the proximal left ureter. A small amount of blood clot is present in the proximal left ureter. 3. Interval improvement in left hydronephrosis with persistent transition point at the left mid-ureter, with associated focal wall thickening. This may represent inflammatory thickening/spasm related to prior impacted stone versus pre-existing stricture predisposing the patient to stone formation. Dictated by: Dmitry Thompson MD The radiology attending physician has personally reviewed this study, and had reviewed and/or edited this written report and agrees with it. Electronically signed by: Eric Irene M.D. Marquise Lim MD IMG CT PROCEDURES Final Res ult * IR Percutaneous Nephrostomy Left (10/14/2023 1:38 PM HOB MILL OPERATOR) Anatomical Region Laterality Modality Body Left X-Ray Angiograph y 10/14/2023 3:34 PM HOB MILL OPERATOR Impressions 10/14/2023 7:38 PM HOB MILL OPERATOR Successful left percutaneous nephrostomy. Impacted stone in the mid left ureter partially obstructing the ureter. PLAN: ?? Flush the catheter 10 ml of NS every 8 hours to prevent clogging the tube given hemorrhagic output. Patient needs to have followup after 6-8 weeks for catheter exchange or internalization ??or possible removal if no definitive surgical plan is made in the interim. Dictated by: Ana Alfaro M.D. The radiology attending physician has personally reviewed this study, and had reviewed and/or edited this written report and agrees with it. Electronically signed by: Kendrick Hughes M.D. Narrative 10/14/2023 7:38 PM HOB MILL OPERATOR EXAMINATION: IR PERCUTANEOUS NEPHROSTOMY LEFT HISTORY/INDICATION: ??73-year-old man with incidentally discovered UTI and obstructing left ureteral stone. CT demonstrates mild hydronephrosis. Urology was unable to pass a stent pass the obstruction. PCN was attempted yesterday but was unsuccessful. He presents for a second attempt. ATTENDING PRESENCE: Kendrick Hughes M.D., the attending radiologist was present from the beginning to the end of the procedure. ?? SEDATION: Procedural sedation was administered under the attending physician's direction and continuous monitoring by a trained nurse specialist who was independent from those actually performing the procedure. ??Total monitored sedation time was 30 minutes. TECHNIQUE/FINDINGS: The risks, benefits and alternatives were discussed and informed consent was obtained. Prior to beginning the procedure, [place] Protocol was performed to confirm the patient's identity and the planned procedure. ??The fluoroscopy time has been recorded in the electronic medical record. Maximum sterile barriers including cap, mask, hand hygiene, sterile gloves, sterile gown, large sterile drape and 2% chlorhexidine for cutaneous antisepsis were used. The overlying skin was then prepped and draped in the usual sterile manner and 1% Lidocaine was used to achieve local anesthesia. ?? A 22-gauge Chiba needle was then used to access the left renal collecting system under real-time ultrasound guidance with appropriate needle tip positioning documented by the aspiration of urine and by fluoroscopy following the injection of contrast. Limited contrast injection demonstrated hydroureter with smooth tapering at the level of obstructing stone with a narrow channel of contrast passing distal to the obstruction. There are filling defects within the collecting system consistent with clots. Air was then injected to localize a posterior calyx and the overlying skin was infiltrated with 1% lidocaine. ??The middle posterior calyx below the 12th rib was accessed using an 18-gauge needle with appropriate needle tip positioning documented by fluoroscopy. ?? A guidewire was passed into the collecting system and the tract was dilated before placing a 10 Fr Atkins catheter. ??The retaining loop was formed and the catheter was secured to the skin with a single stitch of 0-Prolene. The catheter was then connected to gravity drainage. A urine specimen was collected for appropriate laboratory testing. Final fluoroscopic spot images demonstrated left catheter well positioned within the renal pelvis. ESTIMATED BLOOD LOSS: Minimal. CONDITION: Stable DISCHARGED TO: patient care division. FINDINGS: ??Capacious right renal pelvis with non-dilated calyces. Clots within the collecting system. Moderate to large hydroureter with a partially obstructing urinary stone and limited passage of contrast pass the obstruction. Bloody urine drained after placement. Procedure Note Kendrick Hughes MD - 10/14/2023 EXAMINATION: IR PERCUTANEOUS NEPHROSTOMY LEFT HISTORY/INDICATION: 73-year-old man with incidentally discovered UTI and obstructing left ureteral stone. CT demonstrates mild hydronephrosis. Urology was unable to pass a stent pass the obstruction. PCN was attempted yesterday but was unsuccessful. He presents for a second attempt. ATTENDING PRESENCE: Kendrick Hughes M.D., the attending radiologist was present from the beginning to the end of the procedure. SEDATION: Procedural sedation was administered under the attending physician's direction and continuous monitoring by a trained nurse specialist who was independent from those actually performing the procedure. Total monitored sedation time was 30 minutes. TECHNIQUE/FINDINGS: The risks, benefits and alternatives were discussed and informed consent was obtained. Prior to beginning the procedure, [place] Protocol was performed to confirm the patient's identity and the planned procedure. The fluoroscopy time has been recorded in the electronic medical record. Maximum sterile barriers including cap, mask, hand hygiene, sterile gloves, sterile gown, large sterile drape and 2% chlorhexidine for cutaneous antisepsis were used. The overlying skin was then prepped and draped in the usual sterile manner and 1% Lidocaine was used to achieve local anesthesia. A 22-gauge Chiba needle was then used to access the left renal collecting system under real-time ultrasound guidance with appropriate needle tip positioning documented by the aspiration of urine and by fluoroscopy following the injection of contrast. Limited contrast injection demonstrated hydroureter with smooth tapering at the level of obstructing stone with a narrow channel of contrast passing distal to the obstruction. There are filling defects within the collecting system consistent with clots. Air was then injected to localize a posterior calyx and the overlying skin was infiltrated with 1% lidocaine. The middle posterior calyx below the 12th rib was accessed using an 18-gauge needle with appropriate needle tip positioning documented by fluoroscopy. A guidewire was passed into the collecting system and the tract was dilated before placing a 10 Fr Atkins catheter. The retaining loop was formed and the catheter was secured to the skin with a single stitch of 0-Prolene. The catheter was then connected to gravity drainage. A urine specimen was collected for appropriate laboratory testing. Final fluoroscopic spot images demonstrated left catheter well positioned within the renal pelvis. ESTIMATED BLOOD LOSS: Minimal. CONDITION: Stable DISCHARGED TO: patient care division. FINDINGS: Capacious right renal pelvis with non-dilated calyces. Clots within the collecting system. Moderate to large hydroureter with a partially obstructing urinary stone and limited passage of contrast pass the obstruction. Bloody urine drained after placement. IMPRESSION: Successful left percutaneous nephrostomy. Impacted stone in the mid left ureter partially obstructing the ureter. PLAN: Flush the catheter 10 ml of NS every 8 hours to prevent clogging the tube given hemorrhagic output. Patient needs to have followup after 6-8 weeks for catheter exchange or internalization or possible removal if no definitive surgical plan is made in the interim. Dictated by: Ana Alfaro M.D. The radiology attending physician has personally reviewed this study, and had reviewed and/or edited this written report and agrees with it. Electronically signed by: Kendrick Hughes M.D. Marquise Lim MD IMG IR PROCEDURES Final Res ult * (ABNORMAL) Urinalysis, microscopic only (10/14/2023 1:35 PM HOB MILL OPERATOR) WBC, ur 0-5 0 - 5 /HPF [facility] RBC, ur >50(A) 0 - 2 /HPF [facility] Epithelial cells, squamous, ur 1-5 0 - 5 /HPF [facility] Bacteria, ur Trace(A) [facility] Mucous, ur Present(A) [facility] Urine 10/14/2023 1:35 PM HOB MILL OPERATOR 10/14/2023 3:26 PM HOB MILL OPERATOR Marquise iLm MD LAB URINE ORDERABLES Final Result Performing Organization Address City/[facility]/ZIP Co de Phone Number [facility] Department [place] [address] * Urine culture Urine, kidney aspirate Left (10/14/2023 1:35 PM HOB MILL OPERATOR) Report Final Report: No growth [facility] Urine, kidney aspirate (Left) 10/14/2023 1:35 PM HOB MILL OPERATOR 10/14/2023 3:52 PM HOB MILL OPERATOR Narrative [facility] - 10/16/2023 4:49 PM HOB MILL OPERATOR Testing performed by [facility] ([phone]) Marquise Lim MD LAB MICROBIOLOGY - GENERAL ORDERABLES Final Result Performing Organization Address City/[facility]/ZIP Co de Phone Number [facility] Department [place] [address] * (ABNORMAL) Urinalysis reflex to microscopic and culture Urine (10/14/2023 1:35 PM HOB MILL OPERATOR) Color, ur Red(A) Yellow [facility] Clarity, ur Cloudy(A) Clear [facility] Specific gravity, ur 1.015 1.003 - 1.030 [facility] pH, urine 6.0 [facility] Comment: Interpretive Data ? Urine pH is affected by diet, medications, systemic acid-base disturbances, and renal tubular function. ??pH may affect urinary stone formation. ??For example, urine pH below 6.0 may help reduce the tendency for calcium phosphate stones and pH greater than 6.0 may reduce the tendency for uric acid stone formation. Source: [facility] Intiza Current Interpretive Data was last revised on 2017 Protein, ur ql 1+(A) Negative [facility] Glucose, ur ql Negative Negative [facility] Ketones, ur Negative Negative [facility] Bilirubin, ur 1+(A) Negative [facility] Blood, ur 4+(A) Negative [facility] Urobilinogen, ur 0.2 <2.0 mg/dL [facility] Nitrite, ur Negative Negative [facility] Leukocyte esterase, ur 2+(A) Negative [facility] UA reflex comment Reflex to microscopic UA will be performed. [facility] Urine 10/14/2023 1:35 PM HOB MILL OPERATOR 10/14/2023 3:26 PM HOB MILL OPERATOR us Marquise Lim MD LAB MICROBIOLOGY - GENERAL ORDERABLES Final Result [facility] [place] [address] * US Kidney Complete (10/14/2023 7:15 AM HOB MILL OPERATOR) Anatomical Region Laterality Modality Kidney N/A Ultrasound 10/14/2023 6:15 PM HOB MILL OPERATOR Impressions 10/14/2023 6:15 PM HOB MILL OPERATOR 1. ??No hydronephrosis. ??Given patient had obstructive left ureteral stone with severe hydronephrosis and no interval stone extraction or collecting system decompression at time of this ultrasound, resolved hydronephrosis may be secondary to forniceal rupture. 2. ??Crescentic left perinephric collection, 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. Consider short term follow-up imaging preferably with CT urogram in 48-72 hours. Electronically signed by: Robert Yeboah M.D. Narrative 10/14/2023 6:15 PM HOB MILL OPERATOR EXAMINATION: COMPLETE RENAL SONOGRAM HISTORY: ??Obstructive left ureteral stone COMPARISON: ??CT performed on 10/12/2023 FINDINGS: ?? Kidneys: The echogenicity of both kidneys is normal. The kidneys are normal in size. ??The right kidney measures 10.7 cm in length, and the left, 12.1 cm in length. There is no hydronephrosis in either kidney. There is an isoechoic crescentic collection around the left kidney with thickness of 1.3 cm. Bladder: The urinary bladder is decompressed by a Harris catheter. Procedure Note Robert Yeboah MD - 10/14/2023 EXAMINATION: COMPLETE RENAL SONOGRAM HISTORY: Obstructive left ureteral stone COMPARISON: CT performed on 10/12/2023 FINDINGS: Kidneys: The echogenicity of both kidneys is normal. The kidneys are normal in size. The right kidney measures 10.7 cm in length, and the left, 12.1 cm in length. There is no hydronephrosis in either kidney. There is an isoechoic crescentic collection around the left kidney with thickness of 1.3 cm. Bladder: The urinary bladder is decompressed by a Harris catheter. IMPRESSION: 1. No hydronephrosis. Given patient had obstructive left ureteral stone with severe hydronephrosis and no interval stone extraction or collecting system decompression at time of this ultrasound, resolved hydronephrosis may be secondary to forniceal rupture. 2. Crescentic left perinephric collection, 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. Consider short term follow-up imaging preferably with CT urogram in 48-72 hours. Electronically signed by: Robert Yeboah M.D. us Marquise Lim MD IMG US PROCEDURES Final Res ult * eGFR (10/14/2023 6:30 AM HOB MILL OPERATOR) eGFR 64 >=60 mL/min/1. 73 m2 [facility] Comment: [...] interpretive data was last reviewed 2021. Blood 10/14/2023 6:30 AM HOB MILL OPERATOR 10/14/2023 7:44 AM HOB MILL OPERATOR us Marquise Lim MD LAB BLOOD ORDERABLES Final Result [facility] Department [place] [address] * (ABNORMAL) Differential, auto (10/14/2023 6:30 AM HOB MILL OPERATOR) Neutrophil abs 7.4(H) 1.5 - 6.5 K/cumm [facility] Imm gran abs 0.1 0.0 - 0.1 K/cumm [facility] Lymphocyte abs 0.6(L) 0.8 - 3.3 K/cumm [facility] Monocyte abs 1.3(H) 0.2 - 0.8 K/cumm [facility] Eosinophil abs 0.1 0.0 - 0.5 K/cumm [facility] Basophil abs 0.0 0.0 - 0.1 K/cumm [facility] Neutrophil pct 79.0 % [facility] Comment: Interpretive Data Percent cell count reference ranges are not reported, since discordance with absolute values may lead to misinterpretation of CBC data. Current Interpretive Data was last revised on 2018. Imm gran pct 0.6 % [facility] Comment: Interpretive Data Percent cell count reference ranges are not reported, since discordance with absolute values may lead to misinterpretation of CBC data. Current Interpretive Data was last revised on 2018. Lymphocyte pct 6.3 % [facility] Comment: Interpretive Data Percent cell count reference ranges are not reported, since discordance with absolute values may lead to misinterpretation of CBC data. Current Interpretive Data was last revised on 2018. Monocyte pct 13.3 % [facility] Comment: Interpretive Data Percent cell count reference ranges are not reported, since discordance with absolute values may lead to misinterpretation of CBC data. Current Interpretive Data was last revised on 2018. Eosinophil pct 0.5 % [facility] Comment: Interpretive Data Percent cell count reference ranges are not reported, since discordance with absolute values may lead to misinterpretation of CBC data. Current Interpretive Data was last revised on 2018. Basophil pct 0.3 % [facility] Comment: Interpretive Data Percent cell count reference ranges are not reported, since discordance with absolute values may lead to misinterpretation of CBC data. Current Interpretive Data was last revised on 2018. Blood 10/14/2023 6:30 AM HOB MILL OPERATOR 10/14/2023 7:20 AM HOB MILL OPERATOR us Marquise Lim MD LAB BLOOD ORDERABLES Final Result [facility] [place] [address] * (ABNORMAL) Comprehensive metabolic panel (10/14/2023 6:30 AM HOB MILL OPERATOR) Sodium 136 135 - 145 mmol/L [facility] Potassium, pl 3.4 3.3 - 4.9 mmol/L [facility] Chloride 101 97 - 110 mmol/L [facility] CO2 24 22 - 32 mmol/L [facility] Anion gap 11 2 - 15 mmol/L [facility] BUN 24 6 - 25 mg/dL [facility] Creatinine 1.20 0.80 - 1.30 mg/dL [facility] Glucose 153 70 - 199 mg/dL [facility] Comment: Interpretive Data Fasting glucose [...] 2022. Calcium 8.5 8.5 - 10.3 mg/dL [facility] Bilirubin, total 0.5 0.1 - 1.2 mg/dL [facility] [facility] Protein, pl 5.8(L) 6.5 - 8.5 g/dL [facility] Albumin 2.7(L) 3.5 - 5.0 g/dL [facility] Alk phos 108 40 - 130 Units/L [facility] ALT 67(H) 7 - 55 Units/L [facility] AST 49 10 - 50 Units/L [facility] Blood 10/14/2023 6:30 AM HOB MILL OPERATOR 10/14/2023 7:20 AM HOB MILL OPERATOR us Marquise Lim MD LAB BLOOD ORDERABLES Final Result [facility] [place] [address] * (ABNORMAL) CBC with auto differential (10/14/2023 6:30 AM HOB MILL OPERATOR) [facility] WBC 9.4 3.8 - 9.9 K/cumm [facility] Hgb 11.4(L) 13.0 - 17.5 g/dL [facility] Comment: Interpretive Data A reference range for this assay has not been established for patients with an unknown legal sex. Please refer to the laboratory test catalog for established sex-specific reference intervals. Current interpretive data was last revised on 2023. Hct 32.2(L) 38.9 - 50.3 % [facility] Comment: Interpretive Data A reference range for this assay has not been established for patients with an unknown legal sex. Please refer to the laboratory test catalog for established sex-specific reference intervals. Current interpretive data was last revised on 2023. Plt 134(L) 150 - 400 K/cumm [facility] MPV 12.0 9.1 - 12.3 fL [facility] RBC 3.53(L) 4.30 - 5.80 M/cumm [facility] Comment: Interpretive Data A reference range for this assay has not been established for patients with an unknown legal sex. Please refer to the laboratory test catalog for established sex-specific reference intervals. Current interpretive data was last revised on 2023. MCV 91.2 81.3 - 96.4 fL [facility] MCH 32.3 27.1 - 33.3 pg [facility] MCHC 35.4 32.3 - 35.7 g/dL [facility] RDW CV 12.8 11.1 - 14.9 % [facility] RDW SD 42.2 35.7 - 48.1 fL [facility] NRBC abs 0.00 0.00 - 0.01 K/cumm [facility] Blood 10/14/2023 6:30 AM HOB MILL OPERATOR 10/14/2023 7:20 AM HOB MILL OPERATOR us Marquise Lim MD LAB BLOOD ORDERABLES Final Result [facility] [place] [address] * Blood culture Blood (10/13/2023 10:59 PM HOB MILL OPERATOR) Report Final Report: No growth [facility] CORRAL Blood 10/13/2023 10:5 9 PM HOB MILL OPERATOR 10/14/2023 12:27 AM HOB MILL OPERATOR Narrative [facility] CORRAL - 10/18/2023 7:00 AM HOB MILL OPERATOR Collection->Peripheral 1. ?Blood cultures are incubated for 4 days on a continuously monitored blood culture system. The first report of a negative culture is issued within 24 hours of receipt of the specimen in the laboratory. 2. ?Positive culture results are reported as soon as they are detected. 3. ?The most important factor for detection of microbes in the setting of bloodstream infection is the volume of blood submitted for culture. Failure to collect an optimal blood volume can result in false negative blood cultures. For pediatric patients, the recommended blood volume to collect is 1 mL of blood per year of patient age (up to 20 mL) per blood culture set. For adult patients, 20 mL of blood, divided equally between aerobic and anaerobic blood culture bottles, is recommended for each blood culture set. 4. ?For blood cultures with Gram-positive cocci, a rapid molecular test for organism identification may be performed using the VQiao.comigene Gram-Positive Blood Culture Assay. This assay detects microbial DNA in positive blood culture broth via hybridization of target DNA to capture oligonucleotides on a microarray. This assay has been cleared by the [place] Food and Drug Administration and its performance characteristics have been verified by the [facility]. 5. ?For questions about this culture, contact the Microbiology Laboratory at [phone]. Interpretive data was last revised on 2020. Marquise Lim MD LAB MICROBIOLOGY - GENERAL ORDERABLES Final Result [facility] [place] [address] * Blood culture Blood (10/13/2023 11:01 AM HOB MILL OPERATOR) Report Final Report: No growth [facility] ZARAGOZA Blood 10/13/2023 11:0 1 AM HOB MILL OPERATOR 10/13/2023 12:16 PM HOB MILL OPERATOR Narrative [facility] CORRAL - 10/18/2023 8:10 AM HOB MILL OPERATOR 1. ?Blood cultures are incubated for 4 days on a continuously monitored blood culture system. The first report of a negative culture is issued within 24 hours of receipt of the specimen in the laboratory. 2. ?Positive culture results are reported as soon as they are detected. 3. ?The most important factor for detection of microbes in the setting of bloodstream infection is the volume of blood submitted for culture. Failure to collect an optimal blood volume can result in false negative blood cultures. For pediatric patients, the recommended blood volume to collect is 1 mL of blood per year of patient age (up to 20 mL) per blood culture set. For adult patients, 20 mL of blood, divided equally between aerobic and anaerobic blood culture bottles, is recommended for each blood culture set. 4. ?For blood cultures with Gram-positive cocci, a rapid molecular test for organism identification may be performed using the VQ[employer].comigene Gram-Positive Blood Culture Assay. This assay detects microbial DNA in positive blood culture broth via hybridization of target DNA to capture oligonucleotides on a microarray. This assay has been cleared by the [place] Food and Drug Administration and its performance characteristics have been verified by the [facility]. 5. ?For questions about this culture, contact the Microbiology Laboratory at [phone]. Interpretive data was last revised on 2020. us Marquise Lim MD LAB MICROBIOLOGY - GENERAL ORDERABLES Final Result [facility] ZARAGOZA [facility] [place] [address] * [place] Fluoroscopy < 1 Hour (10/13/2023 9:48 AM HOB MILL OPERATOR) Anatomical Region Laterality Modality Body N/A X-Ray Angiograph y 10/13/2023 7:06 PM HOB MILL OPERATOR Impressions 10/14/2023 1:30 PM HOB MILL OPERATOR Unsuccessful attempt at left nephrostomy placement in this patient with a nondilated system. Dictated by: Ana Alfaro M.D. The radiology attending physician has personally reviewed this study, and had reviewed and/or edited this written report and agrees with it. Electronically signed by: Rg Mar M.D. Narrative 10/14/2023 1:30 PM HOB MILL OPERATOR EXAMINATION: FL FLUOROSCOPY < 1 HOUR HISTORY/INDICATION: ??73-year-old man with incidentally discovered UTI and obstructing left ureteral stone. CT demonstrates mild hydronephrosis. Urology was unable to pass a stent pass the obstruction. He presents for left PCN placement. ATTENDING PRESENCE: ??Rg Mar M.D., the attending radiologist was present from [...] was obtained. Prior to beginning the procedure, [place] Protocol was performed to confirm the patient's [...] used to achieve local anesthesia. ?? A 22-gauge Chiba needle was then used to access the left renal collecting system under real-time ultrasound guidance with appropriate needle tip positioning documented by the aspiration of urine and by fluoroscopy following the injection of contrast. Limited contrast injection demonstrated no hydronephrosis and moderate hydroureter. ?? The lower posterior calyx below the 12th rib was accessed using an 22-gauge needle with appropriate needle tip positioning documented by fluoroscopy. ?? However a guidewire could not be passed into the collecting system. Then using fluoroscopic guidance and using a calcified stone s a fluoroscopic landmark, a site was selected on the skin for percutaneous needle entry into the posterior lower calyx. This attempt was also unsuccessful and resulted in displacement of the non-obstructing calcified stone into the collecting system. The renal pelvis was accessed under fluoroscopic guidance, with return of urine. Contrast was injected in attempts to distend the renal calices but could not be refluxed back into the renal pelvis. ?? ESTIMATED BLOOD LOSS: Minimal. CONDITION: Stable DISCHARGED TO: Patient care division. FINDINGS: No left hydronephrosis and moderate left hydroureter. Procedure Note Rg Mar MD - 10/14/2023 EXAMINATION: FL FLUOROSCOPY < 1 HOUR HISTORY/INDICATION: 73-year-old man with incidentally discovered UTI and obstructing left ureteral stone. CT demonstrates mild hydronephrosis. Urology was unable to pass a stent pass the obstruction. He presents for left PCN placement. ATTENDING PRESENCE: Rg Mar M.D., the attending radiologist was present from [...] was obtained. Prior to beginning the procedure, [place] Protocol was performed to confirm the patient's [...] was used to achieve local anesthesia. A 22-gauge Chiba needle was then used to access the left renal collecting system under real-time ultrasound guidance with appropriate needle tip positioning documented by the aspiration of urine and by fluoroscopy following the injection of contrast. Limited contrast injection demonstrated no hydronephrosis and moderate hydroureter. The lower posterior calyx below the 12th rib was accessed using an 22-gauge needle with appropriate needle tip positioning documented by fluoroscopy. However a guidewire could not be passed into the collecting system. Then using fluoroscopic guidance and using a calcified stone s a fluoroscopic landmark, a site was selected on the skin for percutaneous needle entry into the posterior lower calyx. This attempt was also unsuccessful and resulted in displacement of the non-obstructing calcified stone into the collecting system. The renal pelvis was accessed under fluoroscopic guidance, with return of urine. Contrast was injected in attempts to distend the renal calices but could not be refluxed back into the renal pelvis. ESTIMATED BLOOD LOSS: Minimal. CONDITION: Stable DISCHARGED TO: Patient care division. FINDINGS: No left hydronephrosis and moderate left hydroureter. IMPRESSION: Unsuccessful attempt at left nephrostomy placement in this patient with a nondilated system. Dictated by: Ana Alfaro M.D. The radiology attending physician has personally reviewed this study, and had reviewed and/or edited this written report and agrees with it. Electronically signed by: Rg Mar M.D. Severo Merlos MD IM FLUOROSCOPY PROCEDURES F inal Result * eGFR (10/13/2023 6:50 AM HOB MILL OPERATOR) eGFR >90 >=60 mL/min/1. 73 m2 [facility] Comment: Interpretive Data Reference Interval Normal [...] interpretive data was last reviewed 2021. Blood 10/13/2023 6:50 AM HOB MILL OPERATOR 10/13/2023 7:55 AM HOB MILL OPERATOR us Severo Merlos MD LAB BLOOD ORDERABLES Final R esult [facility] [place] [address] * (ABNORMAL) Differential, auto (10/13/2023 6:50 AM HOB MILL OPERATOR) Neutrophil abs 5.8 1.5 - 6.5 K/cumm [facility] Imm gran abs 0.0 0.0 - 0.1 K/cumm [facility] Lymphocyte abs 0.2(L) 0.8 - 3.3 K/cumm [facility] Monocyte abs 0.2 0.2 - 0.8 K/cumm [facility] Eosinophil abs 0.0 0.0 - 0.5 K/cumm [facility] Basophil abs 0.0 0.0 - 0.1 K/cumm [facility] Neutrophil pct 92.8 % [facility] Comment: Interpretive Data Percent cell count reference ranges are not reported, since discordance with absolute values may lead to misinterpretation of CBC data. Current Interpretive Data was last revised on 2018. Imm gran pct 0.5 % [facility] Comment: Interpretive Data Percent cell count reference ranges are not reported, since discordance with absolute values may lead to misinterpretation of CBC data. Current Interpretive Data was last revised on 2018. Lymphocyte pct 2.7 % [facility] Comment: Interpretive Data Percent cell count reference ranges are not reported, since discordance with absolute values may lead to misinterpretation of CBC data. Current Interpretive Data was last revised on 2018. Monocyte pct 3.5 % [facility] Comment: Interpretive Data Percent cell count reference ranges are not reported, since discordance with absolute values may lead to misinterpretation of CBC data. Current Interpretive Data was last revised on 2018. Eosinophil pct 0.2 % [facility] Comment: Interpretive Data Percent cell count reference ranges are not reported, since discordance with absolute values may lead to misinterpretation of CBC data. Current Interpretive Data was last revised on 2018. Basophil pct 0.3 % [facility] Comment: Interpretive Data Percent cell count reference ranges are not reported, since discordance with absolute values may lead to misinterpretation of CBC data. Current Interpretive Data was last revised on 2018. Blood 10/13/2023 6:50 AM HOB MILL OPERATOR 10/13/2023 7:55 AM HOB MILL OPERATOR us Severo Merlos MD LAB BLOOD ORDERABLES Final R esult [facility] [place] [address] * (ABNORMAL) CBC with auto differential (10/13/2023 6:50 AM HOB MILL OPERATOR) Pathologist [facility] WBC 6.2 3.8 - 9.9 K/cumm [facility] Hgb 13.3 13.0 - 17.5 g/dL [facility] Comment: Interpretive Data A reference range for this assay has not been established for patients with an unknown legal sex. Please refer to the laboratory test catalog for established sex-specific reference intervals. Current interpretive data was last revised on 2023. Hct 37.0(L) 38.9 - 50.3 % [facility] Comment: Interpretive Data A reference range for this assay has not been established for patients with an unknown legal sex. Please refer to the laboratory test catalog for established sex-specific reference intervals. Current interpretive data was last revised on 2023. Plt 143(L) 150 - 400 K/cumm [facility] MPV 11.6 9.1 - 12.3 fL [facility] RBC 4.11(L) 4.30 - 5.80 M/cumm [facility] Comment: Interpretive Data A reference range for this assay has not been established for patients with an unknown legal sex. Please refer to the laboratory test catalog for established sex-specific reference intervals. Current interpretive data was last revised on 2023. MCV 90.0 81.3 - 96.4 fL [facility] MCH 32.4 27.1 - 33.3 pg [facility] MCHC 35.9(H) 32.3 - 35.7 g/dL [facility] RDW CV 12.8 11.1 - 14.9 % [facility] RDW SD 41.8 35.7 - 48.1 fL [facility] NRBC abs 0.00 0.00 - 0.01 K/cumm [facility] Blood 10/13/2023 6:50 AM HOB MILL OPERATOR 10/13/2023 7:55 AM HOB MILL OPERATOR Severo Merlos MD LAB BLOOD ORDERABLES Final R esult [facility] [place] [address] * (ABNORMAL) Comprehensive metabolic panel (10/13/2023 6:50 AM HOB MILL OPERATOR) Sodium 137 135 - 145 mmol/L [facility] Potassium, pl 3.7 3.3 - 4.9 mmol/L [facility] Chloride 101 97 - 110 mmol/L [facility] CO2 26 22 - 32 mmol/L [facility] Anion gap 10 2 - 15 mmol/L [facility] BUN 17 6 - 25 mg/dL [facility] Creatinine 0.82 0.80 - 1.30 mg/dL [facility] Glucose 160 70 - 199 mg/dL [facility] Comment: Interpretive Data Fasting glucose [...] interpretive data was last revised 2022. Calcium 9.1 8.5 - 10.3 mg/dL [facility] Bilirubin, total 0.7 0.1 - 1.2 mg/dL [facility] Protein, pl 6.8 6.5 - 8.5 g/dL [facility] Albumin 3.6 3.5 - 5.0 g/dL [facility] Alk phos 113 40 - 130 Units/L [facility] ALT 68(H) 7 - 55 Units/L [facility] Comment:Reviewed AST 50 10 - 50 Units/L [facility] Blood 10/13/2023 6:50 AM HOB MILL OPERATOR 10/13/2023 7:55 AM HOB MILL OPERATOR Severo Merlos MD LAB BLOOD ORDERABLES Final R esult Performing Organization Address City/[facility]/ZIP Co de Phone Number [facility] [place] [address] * [place] Fluoroscopy < 1 Hour (10/13/2023 3:00 AM HOB MILL OPERATOR) Narrative [facility] - 10/13/2023 10:04 AM HOB MILL OPERATOR The images from this study are not interpreted by Radiology. ??Please refer to the physician's procedure / OR operative note. Severo Merlos MD IMG FLUOROSCOPY PROCEDURES F inal Result [id number] * MRI Spine Total Complete W WO Contrast (10/12/2023 11:44 PM HOB MILL OPERATOR) Anatomical Region Laterality Modality Spine N/A Magnetic Resonan ce 10/13/2023 12:4 6 AM HOB MILL OPERATOR Impressions 10/13/2023 11:39 AM HOB MILL OPERATOR 1. ??Redemonstrated degenerative disc disease of the lumbar spine notable for a left lateral disc bulge and superimposed protrusion at L4-L5 resulting in moderate right and severe left lateral recess stenosis, similar to prior. ??Additionally there is continued severe neuroforaminal stenosis on the left at L4-L5 and on the right at L5-S1. There is no high-grade spinal canal or neuroforaminal stenosis involving the cervical and thoracic spine. 2. ??There is flattening of the dorsal cord at T4-T5 which may reflect an arachnoid cyst or arachnoid web with associated short segment cord signal abnormality. This can be further characterized with nonemergent CT myelogram. 3. ??Partially imaged moderate left hydronephrosis, seen to greater advantage on recent CT of the abdomen and pelvis. Dictated by: Aston Vazquez MD The radiology attending physician has personally reviewed this study, and had reviewed and/or edited this written report and agrees with it. Electronically signed by: Kym Buckley M.D. Narrative 10/13/2023 11:39 AM HOB MILL OPERATOR EXAMINATION: 1. Magnetic resonance imaging (MRI) of the cervical spine without and with contrast 2. Magnetic resonance imaging (MRI) of the thoracic spine without and with contrast 3. Magnetic resonance imaging (MRI) of the lumbar spine without and with contrast HISTORY: Myelopathy, acute TECHNIQUE: Multiplanar multi-weighted MRI of the cervical spine was performed without and with intravenous contrast using the standard protocol. Multiplanar multi-weighted MRI of the thoracic was performed without and with intravenous contrast using the standard protocol. Multiplanar multi-weighted MRI of the lumbar spine was performed without and with intravenous contrast using the standard protocol. Contrast information: 16 mL Gadoterate Meglumine COMPARISON: MR lumbar spine 10/01/2023, 08/30/2023 FINDINGS: CERVICAL SPINE: There is exaggerated cervical kyphosis. There are mixed Modic type I and type II changes throughout the cervical spine. No acute fracture is identified. The craniocervical junction is normal. The visualized portions of the skull base and the posterior fossa are normal. The spinal cord demonstrates normal signal intensity on all sequences. No soft tissue abnormality is identified. Normal signal voids are present in the vertebral arteries. C2-C3: Mild disc height loss. There is mild bilateral facet arthropathy. There is no uncovertebral joint disease. There is no neuroforaminal stenosis. There is no spinal canal stenosis. C3-C4: Mild diffuse disc bulge. There is mild to moderate bilateral facet arthropathy. There is mild bilateral uncovertebral joint disease. There is mild bilateral neuroforaminal stenosis. There is no spinal canal stenosis. C4-C5: Diffuse disc bulge and ligamentum flavum infolding. There is mild bilateral facet arthropathy. There is mild bilateral uncovertebral joint disease. There is moderate right and severe left neuroforaminal stenosis. There is no spinal canal stenosis. C5-C6: Diffuse disc bulge. There is mild right and moderate left facet arthropathy. There is mild bilateral uncovertebral joint disease. There is mild bilateral neuroforaminal stenosis. There is no spinal canal stenosis. C6-C7: Diffuse disc height loss. There is mild right and moderate left facet arthropathy. There is mild bilateral uncovertebral joint disease. There is mild bilateral neuroforaminal stenosis. There is no spinal canal stenosis. C7-T1: Disc height loss. There is mild bilateral facet arthropathy. There is mild bilateral uncovertebral joint disease. There is no neuroforaminal stenosis. There is no spinal canal stenosis. THORACIC SPINE: The alignment of the thoracic spine is normal. Heterogeneous bone marrow signal throughout. There are no compression fractures. There is a prominent central canal. ??There flattening of the dorsal cord at T4-T5. Limited views of the chest and abdomen show no soft tissue abnormality. The aorta is normal. There are small disc protrusions at T7-T8 and T9-T10. There is no facet arthropathy. There is moderate neuroforaminal stenosis at T10. There is no spinal canal stenosis. LUMBAR SPINE: The alignment of the lumbar spine is normal. There is heterogeneous bone marrow signal throughout. There are no compression fractures. The conus medullaris terminates at the level of L1-L2. The distal spinal cord signal intensity is normal. Intervertebral disks have normal height and signal intensity. ??Redemonstrated moderate left hydronephrosis. The aorta is normal. L1-L2: Mild disc height loss. There is mild bilateral facet arthropathy. There is no neuroforaminal stenosis. There is no spinal canal stenosis. L2-L3: Mild disc height loss. There is mild bilateral facet arthropathy. There is no neuroforaminal stenosis. There is no spinal canal stenosis. L3-L4: Mild disc height loss. There is mild bilateral facet arthropathy. There is no neuroforaminal stenosis. There is no spinal canal stenosis. L4-L5: There is an asymmetric left disc bulge with superimposed central disc and left lateral disc extrusion There is moderate right and severe left facet arthropathy. There is mild right and severe left neuroforaminal stenosis. There is moderate spinal canal stenosis. ??There is additional moderate right and severe left lateral recess stenosis. L5-S1: Moderate asymmetric disc bulge. There is moderate bilateral facet arthropathy, small right synovial cyst. There is severe right and moderate left neuroforaminal stenosis. There is mild spinal canal stenosis. Procedure Note Kym Buckley MD - 10/13/2023 EXAMINATION: 1. Magnetic resonance imaging (MRI) of the cervical spine without and with contrast 2. Magnetic resonance imaging (MRI) of the thoracic spine without and with contrast 3. Magnetic resonance imaging (MRI) of the lumbar spine without and with contrast HISTORY: Myelopathy, acute TECHNIQUE: Multiplanar multi-weighted MRI of the cervical spine was performed without and with intravenous contrast using the standard protocol. Multiplanar multi-weighted MRI of the thoracic was performed without and with intravenous contrast using the standard protocol. Multiplanar multi-weighted MRI of the lumbar spine was performed without and with intravenous contrast using the standard protocol. Contrast information: 16 mL [facility] COMPARISON: MR lumbar spine 10/01/2023, 08/30/2023 FINDINGS: CERVICAL SPINE: There is exaggerated cervical kyphosis. There are mixed Modic type I and type II changes throughout the cervical spine. No acute fracture is identified. The craniocervical junction is normal. The visualized portions of the skull base and the posterior fossa are normal. The spinal cord demonstrates normal signal intensity on all sequences. No soft tissue abnormality is identified. Normal signal voids are present in the vertebral arteries. C2-C3: Mild disc height loss. There is mild bilateral facet arthropathy. There is no uncovertebral joint disease. There is no neuroforaminal stenosis. There is no spinal canal stenosis. C3-C4: Mild diffuse disc bulge. There is mild to moderate bilateral facet arthropathy. There is mild bilateral uncovertebral joint disease. There is mild bilateral neuroforaminal stenosis. There is no spinal canal stenosis. C4-C5: Diffuse disc bulge and ligamentum flavum infolding. There is mild bilateral facet arthropathy. There is mild bilateral uncovertebral joint disease. There is moderate right and severe left neuroforaminal stenosis. There is no spinal canal stenosis. C5-C6: Diffuse disc bulge. There is mild right and moderate left facet arthropathy. There is mild bilateral uncovertebral joint disease. There is mild bilateral neuroforaminal stenosis. There is no spinal canal stenosis. C6-C7: Diffuse disc height loss. There is mild right and moderate left facet arthropathy. There is mild bilateral uncovertebral joint disease. There is mild bilateral neuroforaminal stenosis. There is no spinal canal stenosis. C7-T1: Disc height loss. There is mild bilateral facet arthropathy. There is mild bilateral uncovertebral joint disease. There is no neuroforaminal stenosis. There is no spinal canal stenosis. THORACIC SPINE: The alignment of the thoracic spine is normal. Heterogeneous bone marrow signal throughout. There are no compression fractures. There is a prominent central canal. There flattening of the dorsal cord at T4-T5. Limited views of the chest and abdomen show no soft tissue abnormality. The aorta is normal. There are small disc protrusions at T7-T8 and T9-T10. There is no facet arthropathy. There is moderate neuroforaminal stenosis at T10. There is no spinal canal stenosis. LUMBAR SPINE: The alignment of the lumbar spine is normal. There is heterogeneous bone marrow signal throughout. There are no compression fractures. The conus medullaris terminates at the level of L1-L2. The distal spinal cord signal intensity is normal. Intervertebral disks have normal height and signal intensity. Redemonstrated moderate left hydronephrosis. The aorta is normal. L1-L2: Mild disc height loss. There is mild bilateral facet arthropathy. There is no neuroforaminal stenosis. There is no spinal canal stenosis. L2-L3: Mild disc height loss. There is mild bilateral facet arthropathy. There is no neuroforaminal stenosis. There is no spinal canal stenosis. L3-L4: Mild disc height loss. There is mild bilateral facet arthropathy. There is no neuroforaminal stenosis. There is no spinal canal stenosis. L4-L5: There is an asymmetric left disc bulge with superimposed central disc and left lateral disc extrusion There is moderate right and severe left facet arthropathy. There is mild right and severe left neuroforaminal stenosis. There is moderate spinal canal stenosis. There is additional moderate right and severe left lateral recess stenosis. L5-S1: Moderate asymmetric disc bulge. There is moderate bilateral facet arthropathy, small right synovial cyst. There is severe right and moderate left neuroforaminal stenosis. There is mild spinal canal stenosis. IMPRESSION: 1. Redemonstrated degenerative disc disease of the lumbar spine notable for a left lateral disc bulge and superimposed protrusion at L4-L5 resulting in moderate right and severe left lateral recess stenosis, similar to prior. Additionally there is continued severe neuroforaminal stenosis on the left at L4-L5 and on the right at L5-S1. There is no high-grade spinal canal or neuroforaminal stenosis involving the cervical and thoracic spine. 2. There is flattening of the dorsal cord at T4-T5 which may reflect an arachnoid cyst or arachnoid web with associated short segment cord signal abnormality. This can be further characterized with nonemergent CT myelogram. 3. Partially imaged moderate left hydronephrosis, seen to greater advantage on recent CT of the abdomen and pelvis. Dictated by: Aston Vazquez MD The radiology attending physician has personally reviewed this study, and had reviewed and/or edited this written report and agrees with it. Electronically signed by: Kym Buckley M.D. Amol Hargrove MD IM MRI PROCEDURES Fi nal Result * Blood culture Blood (10/12/2023 9:38 PM HOB MILL OPERATOR) Report Final Report: No growth LAURA CORRAL Blood 10/12/2023 9:38 PM HOB MILL OPERATOR 10/12/2023 9:59 PM HOB MILL OPERATOR Narrative LAURA ZARAGOZA - 10/17/2023 7:00 AM HOB MILL OPERATOR Second site Collection->Peripheral 1. ?Blood cultures are incubated for 4 days on a continuously monitored blood culture system. The first report of a negative culture is issued within 24 hours of receipt of the specimen in the laboratory. 2. ?Positive culture results are reported as soon as they are detected. 3. ?The most important factor for detection of microbes in the setting of bloodstream infection is the volume of blood submitted for culture. Failure to collect an optimal blood volume can result in false negative blood cultures. For pediatric patients, the recommended blood volume to collect is 1 mL of blood per year of patient age (up to 20 mL) per blood culture set. For adult patients, 20 mL of blood, divided equally between aerobic and anaerobic blood culture bottles, is recommended for each blood culture set. 4. ?For blood cultures with Gram-positive cocci, a rapid molecular test for organism identification may be performed using the Verigene Gram-Positive Blood Culture Assay. This assay detects microbial DNA in positive blood culture broth via hybridization of target DNA to capture oligonucleotides on a microarray. This assay has been cleared by the [place] Food and Drug Administration and its performance characteristics have been verified by the [facility]. 5. ?For questions about this culture, contact the Microbiology Laboratory at [phone]. Interpretive data was last revised on 2020. us Amol Hargrove MD LAB MICROBIOLOGY - KartRocketUT ORDERABLES Final Result [facility] [place] [address] * CT Chest Abdomen Pelvis W Contrast (10/12/2023 9:00 PM HOB MILL OPERATOR) Anatomical Region Laterality Modality Body N/A Computed Tomogra phy 10/12/2023 9:35 PM HOB MILL OPERATOR Impressions 10/13/2023 10:26 AM HOB MILL OPERATOR 1. ??Obstructing renal calculus in unchanged position compared to CT 10/11/2023, measuring 6 mm in size. 2. ??Unchanged retroperitoneal gas on the left side, likely postprocedural. 3. ??Inflammatory changes in the left perinephric space and retroperitoneum, which can be seen in setting of obstructive uropathy. 4. ??Gas in the urinary bladder may represent changes due to instrumentation however gas forming bacteria in the setting of obstructive uropathy/obstructive renal stone should also be considered. Dictated by: Govind Rodriguez MD The radiology attending physician has personally reviewed this study, and had reviewed and/or edited this written report and agrees with it. Electronically signed by: Mich Cabrera M.D. Narrative 10/13/2023 10:26 AM HOB MILL OPERATOR EXAMINATION: CT CHEST ABDOMEN PELVIS W CONTRAST HISTORY: 73-year-old with history of robotic prostatectomy who presents with progressive history of cloudy urine. TECHNIQUE: ??Transaxial computed tomographic images of the chest, abdomen and pelvis ??were obtained with intravenous contrast according to the standard protocol after the uneventful administration of 69 mL Opti-Ray 350 intravenous contrast. COMPARISON: Lumbar spine MR 10/01/2023 FINDINGS: ?? Symmetric enhancement imaged thyroid. ??No supraclavicular, axillary lymphadenopathy. ??The heart size is normal. ??No pericardial effusion. Coronary artery calcifications are noted. The thoracic aorta and main pulmonary artery are normal in size. Mild dependent atelectasis. ??No pleural effusion. ??No pneumothorax. No suspicious pulmonary nodule. Numerous hypoattenuating hepatic lesions are noted, favored represent cysts. ??There is hypertrophy of the left hemiliver. ??The gallbladder is normal in size. ??No intra-extra hepatic biliary ductal dilatation. The pancreas is normal. ??The spleen is normal. ??The adrenal glands are normal. The right kidney is normal. ??There is no hydronephrosis. ??Punctate radiodensity seen in the superior pole collecting system likely represents a nonobstructive calculus. ??Additional hyperdensity seen in the midpole is also likely small nonobstructing calculus. ??The distal ureter is normal in caliber. There is mild to moderate left-sided hydronephrosis, with large nonobstructing calculus in the inferior collecting system, with engorgement of the renal pelvis, consistent with hydroureteronephrosis. ??There is some left perinephric stranding, and delayed contrast enhancement. ??Findings are consistent with obstructive uropathy. ??Significant gas can be seen surrounding the ureter, which favored to be postprocedural gas which is unchanged compared to CT 10/11/2023. ??Additionally, there is mild stranding of the distal ureter at the level of the external iliac vessels, which is nonspecific but may represent a component of pyelitis changes due obstruction in the mid ureter. No significant inflammatory changes are seen specifically surrounding the distended left renal collecting system and proximal ureter. Obstructive calculus is seen in the mid ureter, series 3 image 592 measures 6 mm in greatest dimension. The urinary bladder has a small locule of gas, likely due to recent instrumentation, but can also be seen in the setting of gas-forming infection. ??Faint stranding seen around the urinary bladder may represent a component of cystitis. ??Postsurgical changes are seen in the prostatectomy bed. No significant abdominal pelvic lymphadenopathy. ??No suspicious osseous lesion with redemonstration of degenerative changes in the lumbar spine, better seen on MR 10/01/2023. Procedure Note Mich Cabrera MD - 10/13/2023 EXAMINATION: CT CHEST ABDOMEN PELVIS W CONTRAST HISTORY: 73-year-old with history of robotic prostatectomy who presents with progressive history of cloudy urine. TECHNIQUE: Transaxial computed tomographic images of the chest, abdomen and pelvis were obtained with intravenous contrast according to the standard protocol after the uneventful administration of 69 mL Opti-Ray 350 intravenous contrast. COMPARISON: Lumbar spine MR 10/01/2023 FINDINGS: Symmetric enhancement imaged thyroid. No supraclavicular, axillary lymphadenopathy. The heart size is normal. No pericardial effusion. Coronary artery calcifications are noted. The thoracic aorta and main pulmonary artery are normal in size. Mild dependent atelectasis. No pleural effusion. No pneumothorax. No suspicious pulmonary nodule. Numerous hypoattenuating hepatic lesions are noted, favored represent cysts. There is hypertrophy of the left hemiliver. The gallbladder is normal in size. No intra-extra hepatic biliary ductal dilatation. The pancreas is normal. The spleen is normal. The adrenal glands are normal. The right kidney is normal. There is no hydronephrosis. Punctate radiodensity seen in the superior pole collecting system likely represents a nonobstructive calculus. Additional hyperdensity seen in the midpole is also likely small nonobstructing calculus. The distal ureter is normal in caliber. There is mild to moderate left-sided hydronephrosis, with large nonobstructing calculus in the inferior collecting system, with engorgement of the renal pelvis, consistent with hydroureteronephrosis. There is some left perinephric stranding, and delayed contrast enhancement. Findings are consistent with obstructive uropathy. Significant gas can be seen surrounding the ureter, which favored to be postprocedural gas which is unchanged compared to CT 10/11/2023. Additionally, there is mild stranding of the distal ureter at the level of the external iliac vessels, which is nonspecific but may represent a component of pyelitis changes due obstruction in the mid ureter. No significant inflammatory changes are seen specifically surrounding the distended left renal collecting system and proximal ureter. Obstructive calculus is seen in the mid ureter, series 3 image 592 measures 6 mm in greatest dimension. The urinary bladder has a small locule of gas, likely due to recent instrumentation, but can also be seen in the setting of gas-forming infection. Faint stranding seen around the urinary bladder may represent a component of cystitis. Postsurgical changes are seen in the prostatectomy bed. No significant abdominal pelvic lymphadenopathy. No suspicious osseous lesion with redemonstration of degenerative changes in the lumbar spine, better seen on MR 10/01/2023. IMPRESSION: 1. Obstructing renal calculus in unchanged position compared to CT 10/11/2023, measuring 6 mm in size. 2. Unchanged retroperitoneal gas on the left side, likely postprocedural. 3. Inflammatory changes in the left perinephric space and retroperitoneum, which can be seen in setting of obstructive uropathy. 4. Gas in the urinary bladder may represent changes due to instrumentation however gas forming bacteria in the setting of obstructive uropathy/obstructive renal stone should also be considered. Dictated by: Govind Rodriguez MD The radiology attending physician has personally reviewed this study, and had reviewed and/or edited this written report and agrees with it. Electronically signed by: Mich Cabrera M.D. Amol Hargrove MD IMG CT PROCEDURES Fin al Result * (ABNORMAL) Erythrocyte sedimentation rate (10/12/2023 7:50 PM HOB MILL OPERATOR) Pathologist [facility] Erythrocyte sedimentation rate 48(H) 1 - 20 mm/hr [facility] Blood 10/12/2023 7:50 PM HOB MILL OPERATOR 10/12/2023 8:11 PM HOB MILL OPERATOR Rafael Cowan MD LAB BLOOD ORDERABLES Fin al Result [facility] Department [place] [address] * (ABNORMAL) CRP (acute phase) (10/12/2023 7:50 PM HOB MILL OPERATOR) Pathologist [facility] CRP 210.7(H) <=10.0 mg/L [facility] Blood 10/12/2023 7:50 PM HOB MILL OPERATOR 10/12/2023 8:11 PM HOB MILL OPERATOR Rafael Cowan MD LAB BLOOD ORDERABLES Fin al Result [facility] Department [place] [address] * eGFR (10/12/2023 7:50 PM HOB MILL OPERATOR) eGFR 81 >=60 mL/min/1. 73 m2 [facility] Comment: Interpretive Data Reference Interval [...] interpretive data was last reviewed 2021. Blood 10/12/2023 7:50 PM HOB MILL OPERATOR 10/12/2023 8:23 PM HOB MILL OPERATOR Rafael Cowan MD LAB BLOOD ORDERABLES Fin al Result Performing Organization Address [facility] Co de Phone Number [facility] [place] [address] * (ABNORMAL) Urine culture Urine (10/12/2023 7:50 PM HOB MILL OPERATOR) Report Final Report: Greater than or equal to 100,000 colonies/mL of Escherichia coli Greater than or equal to 100,000 colonies/mL of Escherichia coli #2 For susceptibility results, refer to accession number [id number] on the urine culture from 10/11/23 (.) [facility] Organism ESCHERICHIA COLI [facility] Organism ESCHERICHIA COLI [facility] Urine 10/12/2023 7:50 PM HOB MILL OPERATOR 10/12/2023 9:46 PM HOB MILL OPERATOR Narrative [facility] - 10/14/2023 9:24 AM HOB MILL OPERATOR Urine culture reflexed based upon urinalysis results. Testing performed by [facility] ([phone]) us Rafael Cowan MD LAB MICROBIOLOGY - GENER AL ORDERABLES Final Result Performing Organization Address [facility] de Phone Number [facility] [place] [address] * (ABNORMAL) Urinalysis, microscopic only (10/12/2023 7:50 PM HOB MILL OPERATOR) WBC, ur >50(A) 0 - 5 /HPF [facility] RBC, ur 6-10(A) 0 - 2 /HPF [facility] Bacteria, ur 3+(A) [facility] Culture Reflex Comment Reflex to urine culture will be performed. [facility] Urine 10/12/2023 7:50 PM HOB MILL OPERATOR 10/12/2023 8:11 PM HOB MILL OPERATOR us Rafael Cowan MD LAB URINE ORDERABLES Fin al Result Performing Organization Address [facility] Co de Phone Number [facility] Department [place] [address] * (ABNORMAL) Differential, auto (10/12/2023 7:50 PM HOB MILL OPERATOR) Neutrophil abs 6.4 1.5 - 6.5 K/cumm [facility] Imm gran abs 0.0 0.0 - 0.1 K/cumm [facility] Lymphocyte abs 0.7(L) 0.8 - 3.3 K/cumm [facility] Monocyte abs 0.9(H) 0.2 - 0.8 K/cumm [facility] Eosinophil abs 0.0 0.0 - 0.5 K/cumm [facility] Basophil abs 0.0 0.0 - 0.1 K/cumm [facility] Neutrophil pct 79.1 % [facility] Comment: Interpretive Data Percent cell count reference ranges are not reported, since discordance with absolute values may lead to misinterpretation of CBC data. Current Interpretive Data was last revised on 2018. Imm gran pct 0.5 % [facility] Comment: Interpretive Data Percent cell count reference ranges are not reported, since discordance with absolute values may lead to misinterpretation of CBC data. Current Interpretive Data was last revised on 2018. Lymphocyte pct 8.4 % [facility] Comment: Interpretive Data Percent cell count reference ranges are not reported, since discordance with absolute values may lead to misinterpretation of CBC data. Current Interpretive Data was last revised on 2018. Monocyte pct 11.4 % [facility] Comment: Interpretive Data Percent cell count reference ranges are not reported, since discordance with absolute values may lead to misinterpretation of CBC data. Current Interpretive Data was last revised on 2018. Eosinophil pct 0.4 % [facility] Comment: Interpretive Data Percent cell count reference ranges are not reported, since discordance with absolute values may lead to misinterpretation of CBC data. Current Interpretive Data was last revised on 2018. Basophil pct 0.2 % [facility] Comment: Interpretive Data Percent cell count reference ranges are not reported, since discordance with absolute values may lead to misinterpretation of CBC data. Current Interpretive Data was last revised on 2018. Blood 10/12/2023 7:50 PM HOB MILL OPERATOR 10/12/2023 8:11 PM HOB MILL OPERATOR us Rafael Cowan MD LAB BLOOD ORDERABLES Fin al Result LAURA ZARAGOZA [facility] Department [place] [address] * Blood culture Blood (10/12/2023 7:50 PM HOB MILL OPERATOR) Report Final Report: No growth [facility] Blood 10/12/2023 7:50 PM HOB MILL OPERATOR 10/12/2023 8:32 PM HOB MILL OPERATOR Narrative [facility] - 10/17/2023 7:00 AM HOB MILL OPERATOR Collection->Peripheral 1. ?Blood cultures are incubated for 4 days on a continuously monitored blood culture system. The first report of a negative culture is issued within 24 hours of receipt of the specimen in the laboratory. 2. ?Positive culture results are reported as soon as they are detected. 3. ?The most important factor for detection of microbes in the setting of bloodstream infection is the volume of blood submitted for culture. Failure to collect an optimal blood volume can result in false negative blood cultures. For pediatric patients, the recommended blood volume to collect is 1 mL of blood per year of patient age (up to 20 mL) per blood culture set. For adult patients, 20 mL of blood, divided equally between aerobic and anaerobic blood culture bottles, is recommended for each blood culture set. 4. ?For blood cultures with Gram-positive cocci, a rapid molecular test for organism identification may be performed using the VQiao.comigene Gram-Positive Blood Culture Assay. This assay detects microbial DNA in positive blood culture broth via hybridization of target DNA to capture oligonucleotides on a microarray. This assay has been cleared by the [place] Food and Drug Administration and its performance characteristics have been verified by the [facility]. 5. ?For questions about this culture, contact the Microbiology Laboratory at [phone]. Interpretive data was last revised on 2020. us Amol Hargrove MD LAB MICROBIOLOGY - GE NERAL ORDERABLES Final Result Performing Organization Address City/[facility]/ZIP Co de Phone Number [facility] [place] [address] * Lactate (10/12/2023 7:50 PM HOB MILL OPERATOR) Pathologist [facility] Lactate 1.1 0.7 - 2.0 mmol/L [facility] Blood 10/12/2023 7:50 PM HOB MILL OPERATOR 10/12/2023 8:23 PM HOB MILL OPERATOR Amol Hargrove MD LAB BLOOD ORDERABLES Final Result Performing Organization Address [facility] Co de Phone Number [facility] Department [place] [address] * (ABNORMAL) Urinalysis reflex to microscopic and culture Urine (10/12/2023 7:50 PM HOB MILL OPERATOR) Pathologist [facility] Color, ur Camilo Yellow [facility] Clarity, ur Turbid(A) Clear [facility] Specific gravity, ur 1.025 1.003 - 1.030 [facility] pH, urine 6.0 [facility] Comment: Interpretive Data ? Urine pH is affected by diet, medications, systemic acid-base disturbances, and renal tubular function. ??pH may affect urinary stone formation. ??For example, urine pH below 6.0 may help reduce the tendency for calcium phosphate stones and pH greater than 6.0 may reduce the tendency for uric acid stone formation. Source: [facility] Current Interpretive Data was last revised on 2017 Protein, ur ql 3+(A) Negative [facility] Glucose, ur ql Negative Negative [facility] Ketones, ur Negative Negative [facility] Bilirubin, ur Negative Negative [facility] Blood, ur 2+(A) Negative [facility] Urobilinogen, ur >=8.0(A) <2.0 mg/dL [facility] Nitrite, ur Negative Negative [facility] Leukocyte esterase, ur 3+(A) Negative [facility] UA reflex comment Reflex to microscopic UA will be performed. [facility] Urine 10/12/2023 7:50 PM HOB MILL OPERATOR 10/12/2023 8:11 PM HOB MILL OPERATOR Rafael Cowan MD LAB MICROBIOLOGY - GENER AL ORDERABLES Final Result [facility] [place] [address] * (ABNORMAL) CBC with auto differential (10/12/2023 7:50 PM HOB MILL OPERATOR) [facility] WBC 8.1 3.8 - 9.9 K/cumm [facility] Hgb 13.7 13.0 - 17.5 g/dL [facility] Comment: Interpretive Data A reference range for this assay has not been established for patients with an unknown legal sex. Please refer to the laboratory test catalog for established sex-specific reference intervals. Current interpretive data was last revised on 2023. Hct 38.5(L) 38.9 - 50.3 % [facility] Comment: Interpretive Data A reference range for this assay has not been established for patients with an unknown legal sex. Please refer to the laboratory test catalog for established sex-specific reference intervals. Current interpretive data was last revised on 2023. Plt 155 150 - 400 K/cumm [facility] MPV 11.3 9.1 - 12.3 fL [facility] RBC 4.15(L) 4.30 - 5.80 M/cumm [facility] Comment: Interpretive Data A reference range for this assay has not been established for patients with an unknown legal sex. Please refer to the laboratory test catalog for established sex-specific reference intervals. Current interpretive data was last revised on 2023. MCV 92.8 81.3 - 96.4 fL [facility] MCH 33.0 27.1 - 33.3 pg [facility] MCHC 35.6 32.3 - 35.7 g/dL [facility] RDW CV 12.7 11.1 - 14.9 % [facility] RDW SD 43.3 35.7 - 48.1 fL [facility] NRBC abs 0.00 0.00 - 0.01 K/cumm [facility] Blood 10/12/2023 7:50 PM HOB MILL OPERATOR 10/12/2023 8:11 PM HOB MILL OPERATOR Rafael Cowan MD LAB BLOOD ORDERABLES Fin al Result Performing Organization Address [facility]/ZIP Co de Phone Number [facility] [place] [address] * (ABNORMAL) Basic metabolic panel (10/12/2023 7:50 PM HOB MILL OPERATOR) [facility] Sodium 133(L) 135 - 145 mmol/L [facility] Potassium, pl 3.8 3.3 - 4.9 mmol/L [facility] Chloride 97 97 - 110 mmol/L [facility] CO2 27 22 - 32 mmol/L [facility] Anion gap 9 2 - 15 mmol/L [facility] BUN 22 6 - 25 mg/dL [facility] Creatinine 0.99 0.80 - 1.30 mg/dL [facility] Glucose 166 70 - 199 mg/dL [facility] Comment: Interpretive Data Fasting glucose [...] interpretive data was last revised 2022. Calcium 9.1 8.5 - 10.3 mg/dL [facility] Blood 10/12/2023 7:50 PM HOB MILL OPERATOR 10/12/2023 8:11 PM HOB MILL OPERATOR Rafael Cowan MD LAB BLOOD ORDERABLES Fin al Result Performing Organization Address [facility] Co de Phone Number [facility] [place] [address] documented in this encounter Visit Diagnoses Diagnosis Hydronephrosis with urinary obstruction due to renal calculus- Primary Ureteral colic Renal colic Hydronephrosis with urinary obstruction due to renal calculus Pyelonephritis Unspecified pyelonephritis Left lumbar radiculopathy Thoracic or lumbosacral neuritis or radiculitis, unspecified Left leg weakness Muscle weakness (generalized) Cardiac arrest (HCC) Cardiac arrest Seizures, generalized convulsive (HCC) Lumbar radiculopathy Thoracic or lumbosacral neuritis or radiculitis, unspecified Ureteral colic Renal colic HTN (hypertension) Unspecified essential hypertension Prostate cancer (HCC) Malignant neoplasm of prostate Lumbar radiculopathy Thoracic or lumbosacral neuritis or radiculitis, unspecified UTI (urinary tract infection) Urinary tract infection, site not specified Left perinephric collection, 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 Other specified disorder of kidney and ureter S/P spinal fusion Arthrodesis status Cardiac arrest (HCC) Cardiac arrest Pulmonary embolism (HCC) Other pulmonary embolism and infarction documented in this encounter Admitting Diagnoses Diagnosis Hydronephrosis with urinary obstruction due to renal calculus Ureteral colic Renal colic S/P spinal fusion Arthrodesis status Cardiac arrest (HCC) Cardiac arrest documented in this encounter Administered Medications Inactive Administered Medications - up to 3 most recent administrations Medication Order MAR Action Action Date Dose Rate Site acetaminophen (TYLENOL) tablet 1,000 mg 1,000 mg, oral, Once, On Sun10/12/23 at 1901, For 1 dose Given 10/12/2023 7:55 PM HOB MILL OPERATOR 1,000 mg acetaminophen (TYLENOL) tablet 1,000 mg 1,000 mg, oral, Every 6 hours scheduled, First dose on Sun10/24/23 at 1200, For 18 doses Given 10/28/2023 6:11 PM HOB MILL OPERATOR 1,000 mg Given 10/28/2023 11:56 AM HOB MILL OPERATOR 1,000 mg Given 10/28/2023 6:18 AM HOB MILL OPERATOR 1,000 mg acetaminophen (TYLENOL) tablet 650 mg 650 mg, oral, Every 4 hours PRN, 1st line for pain, fever, fever greater than 38.3 C, Starting on 10/13/23 at 0453, Indications: Fever, PainIndications:Fever,Pain Given 10/23/2023 10:11 AM HOB MILL OPERATOR 650 mg Given 10/22/2023 4:19 PM HOB MILL OPERATOR 650 mg Given 10/21/2023 6:28 PM HOB MILL OPERATOR 650 mg calcium gluconate 1 g/50 mL in sodium chloride (premix) solution 1 g 1 g, intravenous, Administer over 60 Minutes, Once, On Sun10/24/23 at 2215, For 1 dose, Room temperature only, Indications: hypocalcemiaIndications:hypocalce alan New Bag 10/24/2023 9:52 PM HOB MILL OPERATOR 1 g calcium gluconate 2 g/100 mL in sodium chloride (premix) solution 2 g 2 g, intravenous, Administer over 60 Minutes, Once, On Sun10/24/23 at 0430, For 1 dose, Room temperature only, Indications: hypocalcemiaIndications:hypocalce alan New Bag 10/24/2023 4:51 AM HOB MILL OPERATOR 2 g ceFAZolin (ANCEF) 100 mg/mL sterile water 2,000 mg 2,000 mg, intravenous, at 400 mL/hr, Administer over 3 Minutes, Every 8 hours scheduled, First dose on Sun10/28/23 at 1045, Indications: Blood Stream/Endovascular InfectionIndications:Blood Stream/Endovascular Infection Given 10/30/2023 5:19 AM HOB MILL OPERATOR 2,000 mg 4 00 mL/hr Given 10/29/2023 9:36 PM HOB MILL OPERATOR 2,000 mg 400 mL/hr Given 10/29/2023 1:59 PM HOB MILL OPERATOR 2,000 mg 400 mL/hr ceFAZolin (ANCEF) 2,000 mg/20 mL in sterile water (premix) 2,000 mg 2,000 mg, intravenous, at 400 mL/hr, Administer over 3 Minutes, Every 8 hours scheduled, First dose on Sun10/24/23 at 0500, For 9 doses, Start 1st dose 8 hours after last intra- op dose, Indications: Prophylaxis, Surgical, Urinary Tract/Genitourinary InfectionIndications:Prophylaxis, Surgical,Urinary Tract/Genitourinary Infection Given 10/26/2023 10:22 PM HOB MILL OPERATOR 2,000 mg 400 mL/hr Given 10/26/2023 2:37 PM HOB MILL OPERATOR 2,000 mg 400 mL/hr Given 10/26/2023 5:22 AM HOB MILL OPERATOR 2,000 mg 400 mL/hr cefTRIAXone (ROCEPHIN) 2,000 mg/20 mL in sterile water (premix) 2,000 mg 2,000 mg, intravenous, at 1,200 mL/hr, Administer over 1 Minutes, Once, On Sun10/12/23 at 1846, For 1 dose, Indications: Urinary Tract/Genitourinary InfectionIndications:Urinary Tract/Genitourinary Infection Given 10/12/2023 7:55 PM HOB MILL OPERATOR 2,000 mg 1 200 mL/hr cefTRIAXone (ROCEPHIN) 2,000 mg/20 mL in sterile water (premix) 2,000 mg 2,000 mg, intravenous, at 1,200 mL/hr, Administer over 1 Minutes, Every 24 hours scheduled, First dose on Sun10/13/23 at 0900, Indications: Urinary Tract/Genitourinary InfectionIndications:Urinary Tract/Genitourinary Infection Given 10/19/2023 8:07 AM HOB MILL OPERATOR 2,000 mg 1 200 mL/hr Given 10/17/2023 8:36 AM HOB MILL OPERATOR 2,000 mg 1200 mL/hr Given 10/16/2023 8:09 AM HOB MILL OPERATOR 2,000 mg 1200 mL/hr cephalexin (KEFLEX) capsule 500 mg 500 mg, oral, 4 times daily, First dose on Sun10/19/23 at 1200, Indications: Urinary Tract/Genitourinary InfectionIndications:Urinary Tract/Genitourinary Infection Given 10/23/2023 9:41 AM HOB MILL OPERATOR 500 mg Given 10/22/2023 9:27 PM HOB MILL OPERATOR 500 mg Given 10/22/2023 4:19 PM HOB MILL OPERATOR 500 mg cyclobenzaprine (FLEXERIL) tablet 5 mg 5 mg, oral, 3 times daily PRN, muscle spasms, Starting on Helene 10/25/23 at 0806 Given 10/29/2023 4:49 AM HOB MILL OPERATOR 5 mg Given 10/27/2023 9:14 AM HOB MILL OPERATOR 5 mg Given 10/25/2023 2:34 PM HOB MILL OPERATOR 5 mg dextrose 5% and Lactated Ringer's infusion 25 mL/hr, intravenous, Continuous, Starting on Tu10/23/23 at 2330 Rate/Dose Verify 10/24/2023 12:14 AM HOB MILL OPERATOR 25 mL/hr 25 mL/hr New Bag 10/24/2023 12:02 AM HOB MILL OPERATOR 25 mL/hr 25 mL/hr diazePAM (VALIUM) tablet 5 mg 5 mg, oral, Once as needed, muscle spasms, Starting on Sun10/12/23 at 2146, For 1 dose Given 10/12/2023 9:56 PM HOB MILL OPERATOR 5 mg dilTIAZem XR (CARDIZEM CD,DILACOR XR) 24 hour capsule 240 mg 240 mg, oral, 2 times daily, First dose on Sun10/15/23 at 0945, Do not crush, chew, cut, dissolve, open or otherwise manipulate tablet/capsule., Indications: hypertension, On hold since Sun10/23/2023 at 2304 until manually unheldIndications:hypertension Given 10/23/2023 9:41 AM HOB MILL OPERATOR 240 mg Given 10/22/2023 9:28 PM HOB MILL OPERATOR 240 mg Given 10/22/2023 9:01 AM HOB MILL OPERATOR 240 mg dilTIAZem XR (CARDIZEM CD,DILACOR XR) 24 hour capsule 240 mg 240 mg, oral, Daily, First dose on Sun10/30/23 at 0900, Do not crush, chew, cut, dissolve, open or otherwise manipulate tablet/capsule. Given 10/30/2023 9:56 AM HOB MILL OPERATOR 240 mg diphenhydrAMINE (BENADRYL) tab/cap 25 mg 25 mg, oral, Once, On 10/27/23 at 1700, For 1 dose Given 10/27/2023 4:49 PM HOB MILL OPERATOR 25 mg diphenhydrAMINE (BENADRYL) tab/cap 25 mg 25 mg, oral, 4 times daily PRN, itching, Starting on 10/28/23 at 0113 Given 10/28/2023 9:20 AM HOB MILL OPERATOR 25 mg Given 10/28/2023 1:19 AM HOB MILL OPERATOR 25 mg diphenhydrAMINE-zinc acetate 2-0.1 % cream topical, Daily PRN, itching, Starting on 10/27/23 at 0913, Apply to affected area: IV access site, Indications: Pruritus of SkinIndications:Pruritus of Skin Given 10/27/2023 9:15 PM HOB MILL OPERATOR Given 10/27/2023 1:11 PM HOB MILL OPERATOR enoxaparin (LOVENOX) syringe 80 mg 80 mg (rounded from 88.6 mg = 1 mg/kg ? 88.6 kg), subcutaneous, Every 12 hours scheduled, First dose (after last modification) on Sun10/26/23 at 1815, Indications: Pulmonary EmbolismIndications:Pulmonary Embolism Given 10/30/2023 9:56 AM HOB MILL OPERATOR 80 mg Right Upper Abdomen Given 10/29/2023 9:34 PM HOB MILL OPERATOR 80 mg Ri ght Upper Abdomen Given 10/29/2023 9:31 AM HOB MILL OPERATOR 80 mg Le ft Upper Abdomen EPINEPHrine syringe (ADRENALIN) 0.1 mg/mL Code/trauma/sedation medication, Starting on 10/23/23 at 2141 Given 10/23/2023 9:41 PM HOB MILL OPERATOR 1 mg fentaNYL (SUBLIMAZE) preservative free injection intravenous, As needed, Starting on 10/13/23 at 0901, Intra-Op Given 10/13/2023 9:01 AM HOB MILL OPERATOR 50 mcg fentaNYL (SUBLIMAZE) preservative free injection intravenous, As needed, Starting on 10/13/23 at 0914, Intra-Op Given 10/13/2023 9:14 AM HOB MILL OPERATOR 25 mcg fentaNYL (SUBLIMAZE) preservative free injection intravenous, As needed, Starting on 10/13/23 at 0925, Intra-Op Given 10/13/2023 9:25 AM HOB MILL OPERATOR 25 mcg fentaNYL (SUBLIMAZE) preservative free injection intravenous, As needed, Starting on 10/13/23 at 0936, Intra-Op Given 10/13/2023 9:36 AM HOB MILL OPERATOR 50 mcg fentaNYL (SUBLIMAZE) preservative free injection intravenous, As needed, Starting on 10/14/23 at 1307, Intra-Op Given 10/14/2023 1:07 PM HOB MILL OPERATOR 50 mcg fentaNYL (SUBLIMAZE) preservative free injection intravenous, As needed, Starting on [place] 10/14/23 at 1312, Intra-Op Given 10/14/2023 1:12 PM HOB MILL OPERATOR 50 mcg gabapentin (NEURONTIN) capsule 300 mg 300 mg, oral, Once, On Sun10/23/23 at 1300, For 1 dose, Pre-Op, Indications: PainIndications:Pain Given 10/23/2023 12:41 PM HOB MILL OPERATOR 300 mg gabapentin (NEURONTIN) capsule 300 mg 300 mg, oral, Every 8 hours scheduled, First dose on Sun10/23/23 at 2345, Indications: PainIndications:Pain Given 10/30/2023 3:39 PM HOB MILL OPERATOR 300 mg Given 10/30/2023 5:19 AM HOB MILL OPERATOR 300 mg Given 10/29/2023 9:34 PM HOB MILL OPERATOR 300 mg gadoterate meglumine injection 16 mL 16 mL, intravenous, Once in imaging, contrast, Starting on 10/12/23 at 2332, For 1 dose Contrast Given 10/12/2023 11:32 PM HOB MILL OPERATOR 16 mL gadoterate meglumine injection 18 mL 18 mL, intravenous, Once in imaging, contrast, Starting on Helene 10/25/23 at 1338, For 1 dose Contrast Given 10/25/2023 1:39 PM HOB MILL OPERATOR 18 mL gentamicin (GARAMYCIN) 350 mg in sodium chloride 0.9% 35 mL (10 mg/mL) syringe 350 mg, intravenous, Administer over 30 Minutes, Once, On 10/13/23 at 1130, For 1 dose, Indications: Abdominal/Pelvic Infection, Urinary Tract/Genitourinary InfectionIndications:Abdomi nal/Pelvic Infection,Urinary Tract/Genitourinary Infection New Bag 10/13/2023 12:23 PM HOB MILL OPERATOR 350 mg heparin in 0.9% sodium chloride 25,000 unit/250 mL infusion (premix) 0-33 Units/kg/hr ? 89.3 kg (0-29.469 mL/hr, rounded to 0-29.47 mL/hr), intravenous, Titrated, Starting on 10/24/23 at 0100, WEIGHT-BASED HEPARIN INFUSION Initial dose:: 11.1 Units/kg/hr. Max initial dose: 1,000 units/hr. Adjust [...] AM until heparin is discontinued., Indications: Venous ThrombosisIndications:Venou s Thrombosis Rate/Dose Change 10/26/2023 12:28 PM HOB MILL OPERATOR 25.1 Units/kg/hr 22.4 mL/hr New Bag 10/26/2023 11:37 AM HOB MILL OPERATOR 25.1 Units/kg/hr 22.4 m L/hr Rate/Dose Change 10/26/2023 3:05 AM HOB MILL OPERATOR 25.1 Units/kg/hr 2 2.4 mL/hr HYDROmorphone (DILAUDID) injection 0.2 mg 0.2 mg, intravenous, Administer over 2 Minutes, Every 4 hours PRN, 2nd line for pain, Starting on 10/13/23 at 1437 Given 10/14/2023 9:02 AM HOB MILL OPERATOR 0.2 mg Given 10/14/2023 3:20 AM HOB MILL OPERATOR 0.2 mg HYDROmorphone (DILAUDID) injection 0.2 mg 0.2 mg, intravenous, Administer over 2 Minutes, Every 4 hours PRN, 3rd line for pain, Starting on 10/14/23 at 1420 Given 10/17/2023 10:53 AM HOB MILL OPERATOR 0.2 mg Given 10/16/2023 10:15 PM HOB MILL OPERATOR 0.2 mg Given 10/16/2023 11:37 AM HOB MILL OPERATOR 0.2 mg HYDROmorphone (DILAUDID) injection 0.2 mg 0.2 mg, intravenous, Administer over 2 Minutes, Every 4 hours PRN, breakthrough pain, Starting on 10/17/23 at 1055 Given 10/21/2023 6:27 PM HOB MILL OPERATOR 0.2 m g HYDROmorphone (DILAUDID) injection 0.2 mg 0.2 mg, intravenous, Administer over 2 Minutes, Every 2 hours PRN, 2nd line for pain, Starting on Sun10/23/23 at 2247, Indications: PainIndications:Pain Given 10/24/2023 9:51 PM HOB MILL OPERATOR 0.2 mg Given 10/24/2023 7:42 PM HOB MILL OPERATOR 0.2 mg Given 10/24/2023 5:23 PM HOB MILL OPERATOR 0.2 mg HYDROmorphone (DILAUDID) injection 0.5 mg 0.5 mg, intravenous, Administer over 2 Minutes, Every 2 hours PRN, 2nd line for pain, Starting on Sun10/24/23 at 2245, Indications: PainIndications:Pain Given 10/26/2023 6:35 PM HOB MILL OPERATOR 0.5 mg Given 10/25/2023 11:36 AM HOB MILL OPERATOR 0.5 mg Given 10/25/2023 8:41 AM HOB MILL OPERATOR 0.5 mg hydrOXYzine (ATARAX) tablet 25 mg 25 mg, oral, 2 times daily PRN, anxiety, Starting on 10/14/23 at 1417 Given 10/22/2023 9:28 PM HOB MILL OPERATOR 25 mg Given 10/18/2023 4:46 PM HOB MILL OPERATOR 25 mg Given 10/17/2023 5:19 AM HOB MILL OPERATOR 25 mg insulin lispro (HumaLOG, ADMELOG) 100 unit/mL injection 0-10 Units 0-10 Units, subcutaneous, Every 4 hours scheduled, First dose on Sun10/24/23 at 0430, Blood glucose mg/dL: 149 or less: No [...] NPO Status, Indications: Diabetes MellitusIndications:Diabetes Mellitus Given 10/24/2023 4:51 AM HOB MILL OPERATOR 2 Units Right Upper Abdomen insulin lispro (HumaLOG, ADMELOG) 100 unit/mL injection 1-3 Units 1-3 Units, subcutaneous, Every 4 hours scheduled, First dose on Sun10/24/23 at 0100, Blood Sugar Low Dose - Surgical/Post-Op ICU 175 or less No Insulin 176 - 200 1 unit 201 - 250 2 units 251 - 299 3 units Greater than 299 Call MD for hyperglycemia management instructions Do NOT hold for NPO status., Indications: Diabetes MellitusIndications:Diabetes Mellitus Given 10/24/2023 12:49 AM HOB MILL OPERATOR 3 Units Left Lower Abdomen insulin lispro (HumaLOG, ADMELOG) 100 unit/mL injection 2-7 Units 2-7 Units, subcutaneous, Every 4 hours scheduled, First dose on Sun10/24/23 at 1200, Blood Sugar High Dose - Surgical/Post-Op ICU 139 or less No insulin 140 - 175 2 unit 176 - 200 3 unit 201 - 250 5 units 251 - 299 7 units Greater than 299 Call MD for hyperglycemia management instructions Do NOT hold for NPO status., Indications: Diabetes MellitusIndications:Diabetes Mellitus Given 10/25/2023 12:46 PM HOB MILL OPERATOR 3 Units Left Forearm Given 10/25/2023 12:12 AM HOB MILL OPERATOR 2 Units L eft Upper Arm ioversoL (OPTIRAY 350) injection As needed, Starting on Sun10/13/23 at 0941, Intra-Op Given 10/13/2023 9:41 AM HOB MILL OPERATOR 25 mL ioversoL (OPTIRAY 350) syringe 100 mL 100 mL, intravenous, Once in imaging, contrast, Starting on Sun10/12/23 at 2049, For 1 dose Contrast Given 10/12/2023 9:01 PM HOB MILL OPERATOR 69 mL ioversoL (OPTIRAY 350) syringe 125 mL 125 mL, intravenous, Once in imaging, contrast, Starting on Sun10/16/23 at 1201, For 1 dose Contrast Given 10/16/2023 12:36 PM HOB MILL OPERATOR 120 mL ioversoL (OPTIRAY 350) syringe 75 mL 75 mL, intravenous, Once in imaging, contrast, Starting on Sun10/23/23 at 2346, For 1 dose Contrast Given 10/23/2023 11:47 PM HOB MILL OPERATOR 70 mL irbesartan (AVAPRO) tablet 300 mg 300 mg, oral, Daily, First dose on Sun10/30/23 at 0900 Given 10/30/2023 9:56 AM HOB MILL OPERATOR 300 mg ketorolac (TORADOL) 15 mg/mL injection 15 mg 15 mg, intravenous, Once, On Sun10/13/23 at 1100, For 1 dose, For Adult IV push, administer over 15 seconds Given 10/13/2023 10:35 AM HOB MILL OPERATOR 15 mg ketorolac (TORADOL) 15 mg/mL injection 15 mg 15 mg, intravenous, Every 8 hours PRN, 2nd line for pain, Starting on 10/14/23 at 1420, For 1 day, For Adult IV push, administer over 15 seconds Given 10/15/2023 6:12 AM HOB MILL OPERATOR 15 mg Lactated Ringer's (LR) infusion 150 mL/hr, intravenous, Continuous, Starting on 10/13/23 at 1215, For 6 hours New Bag 10/13/2023 12:23 PM HOB MILL OPERATOR 150 mL/hr 150 mL/hr Lactated Ringer's (LR) infusion 125 mL/hr, intravenous, Continuous, Starting on Helene 10/18/23 at 1215, Phase I New Bag 10/18/2023 11:53 PM HOB MILL OPERATOR 125 mL/hr 125 mL/hr New Bag 10/18/2023 1:16 PM HOB MILL OPERATOR 125 mL/hr 125 mL/hr Lactated Ringer's (LR) infusion 30 mL/hr, intravenous, Continuous, Starting on Helene 10/18/23 at 0915, Pre-Op Restarted 10/18/2023 11:11 AM HOB MILL OPERATOR Rate/Dose Verify 10/18/2023 9:23 AM HOB MILL OPERATOR 30 mL/h r New Bag 10/18/2023 9:09 AM HOB MILL OPERATOR 30 mL/hr 30 mL/hr lactulose 0.67 gram/mL oral solution 20 g 20 g, oral, Every 4 hours, First dose on Sun10/26/23 at 0715, For 3 doses Given 10/26/2023 2:26 PM HOB MILL OPERATOR 20 g Given 10/26/2023 11:10 AM HOB MILL OPERATOR 20 g levETIRAcetam (KEPPRA) 1,000 mg/100 mL in sodium chloride (premix) 1,000 mg 1,000 mg, intravenous, Administer over 15 Minutes, Every 12 hours scheduled, First dose on Sun10/24/23 at 0900, Room temperature only New Bag 10/24/2023 9:36 AM HOB MILL OPERATOR 1,000 mg levETIRAcetam (KEPPRA) 4,500 mg in sodium chloride 0.9% 100 mL IVPB 4,500 mg, intravenous, at 580 mL/hr, Administer over 15 Minutes, Once, On Sun10/23/23 at 2330, For 1 dose, Room temperature only New Bag 10/23/2023 11:04 PM HOB MILL OPERATOR 4,500 mg 580 mL/hr levETIRAcetam (KEPPRA) tablet 1,000 mg 1,000 mg, oral, 2 times daily, First dose on Sun10/24/23 at 2100, May mix with 120 mL of enteral nutrition formula or disperse crushed tablets (500 mg tablet strength studied) in 10 mL of water, shake for 5 minutes to dissolve, and administer immediately via enteral feeding tube Given 10/30/2023 9:56 AM HOB MILL OPERATOR 1,000 mg Given 10/29/2023 9:34 PM HOB MILL OPERATOR 1,000 mg Given 10/29/2023 9:31 AM HOB MILL OPERATOR 1,000 mg lidocaine (LIDODERM) 5 % patch 2 patch 2 patch, transdermal, Administer over 12 Hours, Daily, First dose on Sun10/24/23 at 1130, Do not cover the holes on the top side of the patch., Apply to affected area: chest Medication Applied 10/28/2023 1:26 PM HOB MILL OPERATOR 2 patches Other (Comment) Medication Applied 10/27/2023 1:11 PM HOB MILL OPERATOR 2 patches Back Medication Applied 10/25/2023 11:36 AM HOB MILL OPERATOR 2 patches Back lidocaine PF (XYLOCAINE) 10 mg/mL (1 %) preservative free injection As needed, Starting on 10/13/23 at 0912, Intra-Procedure (IR), Indications: Administration of Local AnesthesiaIndications:Adm inistration of Local Anesthesia Given 10/13/2023 9:12 AM HOB MILL OPERATOR 10 mL Back lidocaine PF (XYLOCAINE) 10 mg/mL (1 %) preservative free injection As needed, Starting on 10/14/23 at 1323, Intra-Procedure (IR), Indications: Administration of Local AnesthesiaIndications:Adm inistration of Local Anesthesia Given 10/14/2023 1:16 PM HOB MILL OPERATOR 10 mL lidocaine PF (XYLOCAINE) 10 mg/mL (1 %) preservative free injection As needed, Starting on 10/14/23 at 1323, Intra-Procedure (IR), Indications: Administration of Local AnesthesiaIndications:Adm inistration of Local Anesthesia Given 10/14/2023 1:23 PM HOB MILL OPERATOR 10 mL lidocaine PF (XYLOCAINE) 10 mg/mL (1 %) preservative free injection As needed, Starting on 10/14/23 at 1324, Intra-Procedure (IR), Indications: Administration of Local AnesthesiaIndications:Adm inistration of Local Anesthesia Given 10/14/2023 1:24 PM HOB MILL OPERATOR 7 mL meperidine (DEMEROL) preservative free injection 12.5 mg 12.5 mg, intravenous, Administer over 5 Minutes, Once, On 10/13/23 at 1115, For 1 dose, Indications: ShiveringIndications:Shiv ering Given 10/13/2023 11:02 AM HOB MILL OPERATOR 12.5 mg midazolam (VERSED) 1 mg/mL injection - ADS Override Pull Starting on 10/23/23 at 2153, For 1 dose, Created by cabinet override midazolam (VERSED) 1 mg/mL injection 2 mg 2 mg, intravenous, Once, On 10/23/23 at 2245, For 1 dose, Phase I & Post-op Floor Given 10/23/2023 10:15 PM HOB MILL OPERATOR 2 mg midazolam (VERSED) 1 mg/mL injection As needed, Starting on 10/13/23 at 0901, Intra-Op Given 10/13/2023 9:01 AM HOB MILL OPERATOR 1 mg midazolam (VERSED) 1 mg/mL injection As needed, Starting on 10/13/23 at 0914, Intra-Op Given 10/13/2023 9:14 AM HOB MILL OPERATOR 0.5 mg midazolam (VERSED) 1 mg/mL injection As needed, Starting on 10/13/23 at 0925, Intra-Op Given 10/13/2023 9:25 AM HOB MILL OPERATOR 0.5 mg midazolam (VERSED) 1 mg/mL injection As needed, Starting on 10/14/23 at 1307, Intra-Op Given 10/14/2023 1:07 PM HOB MILL OPERATOR 1 mg midazolam (VERSED) 1 mg/mL injection As needed, Starting on 10/14/23 at 1312, Intra-Op Given 10/14/2023 1:12 PM HOB MILL OPERATOR 1 mg norepinephrine in dextrose 5% (LEVOPHED) 8,000 mcg/250 mL (32 mcg/mL) infusion (premix) 0-2 mcg/kg/min ? 89.3 kg (0-334.875 mL/hr, rounded to 0-334.88 mL/hr), 32 mcg/mL, intravenous, Titrated, Starting on Sun10/23/23 at 2245, Until Sun10/23/23 at 2304, Phase I & Post-op Floor, Initial rate: 0.05 mcg/kg/min, Titrate: Up/Down, Titrate by: 0.01 mcg/kg/min, Every: 2 minutes, Goal: MAP, MAP Goal: 55-65 mmHg, Routine Rate/Dose Change 10/23/2023 10:15 PM HOB MILL OPERATOR 0.1 mcg/kg/min 16.74 mL/hr New Bag 10/23/2023 10:14 PM HOB MILL OPERATOR 0.05 mcg/kg/min 8.37 mL /hr norepinephrine in dextrose 5% (LEVOPHED) 8,000 mcg/250 mL (32 mcg/mL) infusion (premix) 0-0.25 mcg/kg/min ? 89.3 kg (0-41.8594 mL/hr, rounded to 0-41.86 mL/hr), 32 mcg/mL, intravenous, Titrated, Starting on Sun10/23/23 at 2330, Until Sun10/24/23 at 0933, Indications: hypotension, Initial rate: 0.05 mcg/kg/min, Titrate: Up/Down, Titrate by: 0.01 mcg/kg/min, Every: 2 minutes, Goal: MAP, MAP Goal: 60-70 mmHg, RoutineIndications:hypotensi on New Bag 10/24/2023 12:02 AM HOB MILL OPERATOR 0.06 mcg/kg/min 10.05 mL/hr Rate/Dose Verify 10/24/2023 12:00 AM HOB MILL OPERATOR 0.06 mcg/kg/min 1 0.05 mL/hr Rate/Dose Verify 10/23/2023 11:00 PM HOB MILL OPERATOR 0.06 mcg/kg/min 1 0.05 mL/hr ondansetron (ZOFRAN) injection 4 mg 4 mg, intravenous, Administer over 2 Minutes, Every 6 hours PRN, nausea, vomiting, if not tolerating PO, Starting on 10/13/23 at 0453, Indications: Nausea and VomitingIndications:Nausea and Vomiting Given 10/14/2023 3:26 AM HOB MILL OPERATOR 4 mg Given 10/13/2023 11:20 AM HOB MILL OPERATOR 4 mg ondansetron (ZOFRAN) injection 4 mg 4 mg, intravenous, Administer over 2 Minutes, Every 6 hours PRN, nausea, vomiting, Starting on Sun10/23/23 at 2248, Indications: nausea and vomitingIndications:nausea and vomiting ondansetron ODT (ZOFRAN-ODT) disintegrating tablet 4 mg 4 mg, oral, Every 6 hours PRN, nausea, vomiting, Starting on Sun10/13/23 at 0453, Indications: Nausea and VomitingIndications:Nausea and Vomiting Given 10/16/2023 10:19 AM HOB MILL OPERATOR 4 m g oxyCODONE (ROXICODONE) tablet 10 mg 10 mg, oral, Every 4 hours PRN, 1st line for pain, Starting on Sun10/24/23 at 2245, Indications: PainIndications:Pain Given 10/27/2023 9:10 PM HOB MILL OPERATOR 10 mg Given 10/27/2023 9:14 AM HOB MILL OPERATOR 10 mg Given 10/27/2023 5:39 AM HOB MILL OPERATOR 10 mg oxyCODONE (ROXICODONE) tablet 5 mg 5 mg, oral, Every 4 hours PRN, 2nd line for pain, Starting on Sun10/17/23 at 1054, Indications: PainIndications:Pain Given 10/23/2023 6:20 AM HOB MILL OPERATOR 5 mg Given 10/22/2023 9:28 PM HOB MILL OPERATOR 5 mg Given 10/22/2023 3:56 AM HOB MILL OPERATOR 5 mg oxyCODONE (ROXICODONE) tablet 5 mg 5 mg, oral, Every 4 hours PRN, 1st line for pain, Starting on Sun10/23/23 at 2301, Indications: PainIndications:Pain Given 10/24/2023 9:03 PM HOB MILL OPERATOR 5 mg Given 10/24/2023 4:52 PM HOB MILL OPERATOR 5 mg Given 10/24/2023 10:20 AM HOB MILL OPERATOR 5 mg oxyCODONE (ROXICODONE) tablet 5 mg 5 mg, oral, Every 4 hours PRN, 1st line for pain, Starting on Sun10/30/23 at 0631, Indications: PainIndications:Pain pantoprazole DR (PROTONIX) extended release tablet 40 mg 40 mg, oral, Daily, First dose on Sun10/13/23 at 0900, Do not crush, chew, cut, dissolve, open or otherwise manipulate tablet/capsule., Indications: Mucositis ProphylaxisIndications:Mucositis Prophylaxis Given 10/23/2023 9:41 AM HOB MILL OPERATOR 40 mg Given 10/22/2023 9:01 AM HOB MILL OPERATOR 40 mg Given 10/21/2023 8:56 AM HOB MILL OPERATOR [address] (PROTONIX) extended release tablet 40 mg 40 mg, oral, Daily, First dose on Sun10/24/23 at 1130, Do not crush, chew, cut, dissolve, open or otherwise manipulate tablet/capsule., Indications: Treatment of Non-Bleeding Gastric Disorder, home medIndications:Treatment of Non-Bleeding Gastric Disorder,home med Given 10/30/2023 9:56 AM HOB MILL OPERATOR 40 mg Given 10/29/2023 9:31 AM HOB MILL OPERATOR 40 mg Given 10/28/2023 9:17 AM HOB MILL OPERATOR 40 mg perflutren protein-a (OPTISON) 0.22 mg/mL injection - ADS Override Pull Starting on Sun10/24/23 at 1116, For 1 dose, Created by cabinet override Given by Other 10/24/2023 11:43 AM HOB MILL OPERATOR phenylephrine (ARIELLE-SYNEPHRINE) 1 mg/10 mL (100 mcg/mL) in sodium chloride 0.9% (premix) 16 mcg 16 mcg, intravenous, Once, On Sun10/23/23 at 2245, For 1 dose, Phase I & Post-op Floor, For IV push, administer over 30 seconds. Given 10/23/2023 10:15 PM HOB MILL OPERATOR 16 mcg polyethylene glycol (MIRALAX) packet 17 g 17 g, oral, Daily, First dose on Sun10/16/23 at 0900, Indications: constipationIndications:constipatio n Given 10/22/2023 9:01 AM HOB MILL OPERATOR 17 g Given 10/21/2023 8:57 AM HOB MILL OPERATOR 17 g Given 10/20/2023 8:18 AM HOB MILL OPERATOR 17 g polyethylene glycol (MIRALAX) packet 17 g 17 g, oral, Once, On Sun10/16/23 at 2100, For 1 dose, Indications: constipationIndications:constipation Given 10/16/2023 9:23 PM HOB MILL OPERATOR 17 g polyethylene glycol (MIRALAX) packet 17 g 17 g, oral, Daily, First dose on Sun10/26/23 at 0900, Indications: constipationIndications:constipation Given 10/26/2023 9:35 AM HOB MILL OPERATOR 17 g polyethylene glycol (MIRALAX) packet 17 g 17 g, oral, 2 times daily, First dose (after last modification) on Sun10/26/23 at 2100, Indications: constipationIndications:constipation Given 10/28/2023 9:16 AM HOB MILL OPERATOR 17 g Given 10/27/2023 9:13 AM HOB MILL OPERATOR 17 g potassium chloride (KLOR-CON) packet 40 mEq 40 mEq, feeding tube, Once, On Sun10/24/23 at 2145, For 1 dose, Dissolve one packet in at least 120 mL of cold water or other beverage prior to administration. Given 10/24/2023 9:13 PM HOB MILL OPERATOR 40 mEq potassium chloride ER (KLOR-CON) extended release tablet 40 mEq 40 mEq, oral, Once, On [place] 10/25/23 at 2345, For 1 dose, Tablets should not be crushed, chewed, dissolved, or otherwise manipulated. Capsules may be opened and sprinkled on a spoonful of applesauce or pudding, but the contents of the capsule should not be crushed or chewed. Given 10/26/2023 12:36 AM HOB MILL OPERATOR 40 mEq ramelteon (ROZEREM) tablet 8 mg 8 mg, oral, Nightly PRN, sleep, Starting on 10/13/23 at 2146, Indications: Sleep-Onset InsomniaIndications:Sleep-Onset Insomnia Given 10/22/2023 9:28 PM HOB MILL OPERATOR 8 mg Given 10/21/2023 9:48 PM HOB MILL OPERATOR 8 mg Given 10/20/2023 9:30 PM HOB MILL OPERATOR 8 mg ramelteon (ROZEREM) tablet 8 mg 8 mg, oral, Nightly PRN, sleep, Starting on 10/28/23 at 2033, Indications: Sleep-Onset InsomniaIndications:Sleep-Onset Insomnia Given 10/29/2023 10:55 PM HOB MILL OPERATOR 8 mg Given 10/28/2023 9:31 PM HOB MILL OPERATOR 8 mg senna-docusate (PERICOLACE) 8.6-50 mg per tablet 2 tablet 2 tablet, oral, 2 times daily, First dose on Sun10/23/23 at 2345, Hold for diarrhea., Indications: constipationIndications:constipation Given 10/28/2023 9:16 AM HOB MILL OPERATOR 2 table ts Given 10/27/2023 9:14 AM HOB MILL OPERATOR 2 tablets Given 10/26/2023 9:35 AM HOB MILL OPERATOR 2 tablets sodium bicarbonate 8.4 % (1 mEq/mL) injection 50 mEq 50 mEq, intravenous, Administer over 5 Minutes, Once, On [facility] 10/23/23 at 2245, For 1 dose, Phase I & Post-op Floor Given 10/23/2023 10:15 PM HOB MILL OPERATOR 50 mEq sodium chloride 0.9% bolus 1,000 mL 1,000 mL, intravenous, Once, On [facility] 10/23/23 at 2330, For 1 dose New Bag 10/24/2023 12:16 AM HOB MILL OPERATOR 1,000 mL sodium chloride 0.9% bolus from bag 1,000 mL 1,000 mL, intravenous, at 250 mL/hr, Administer over 4 Hours, Once, On [place] 10/14/23 at 0300, For 1 dose Bolus from Bag 10/14/2023 3:06 AM HOB MILL OPERATOR 1,000 mL 250 mL/hr sodium chloride 0.9% bolus from bag 500 mL 500 mL, intravenous, Once, On [facility] 10/13/23 at 1100, For 1 dose Bolus from Bag 10/13/2023 10:33 AM HOB MILL OPERATOR 500 mL 999 mL/hr sodium chloride 0.9% flush 0.5-20 mL 0.5-20 mL, intra-catheter, Every 8 hours scheduled, First dose on [facility] 10/13/23 at 0930, Pre-Procedure (IR), Flush volume based on line type and size. Given 10/23/2023 6:21 AM HOB MILL OPERATOR 10 mL Given 10/22/2023 9:31 PM HOB MILL OPERATOR 10 mL Given 10/22/2023 4:19 PM HOB MILL OPERATOR 10 mL sodium chloride 0.9% flush 0.5-20 mL 0.5-20 mL, intra-catheter, Every 8 hours scheduled, First dose on [place] 10/14/23 at 1400, Pre-Procedure (IR), Flush volume based on line type and size. Given 10/23/2023 6:21 AM HOB MILL OPERATOR 10 mL Given 10/22/2023 9:34 PM HOB MILL OPERATOR 10 mL Given 10/22/2023 4:19 PM HOB MILL OPERATOR 10 mL sodium chloride 0.9% flush 0.5-20 mL 0.5-20 mL, intra-catheter, Every 8 hours scheduled, First dose on Tu10/23/23 at 2345, Flush volume based on line type and size. , Indications: FlushingIndications:Flushing Given 10/30/2023 5:20 AM HOB MILL OPERATOR 10 mL Given 10/29/2023 9:35 PM HOB MILL OPERATOR 10 mL Given 10/29/2023 2:00 PM HOB MILL OPERATOR 10 mL sodium chloride 0.9% flush 0.5-20 mL 0.5-20 mL, intra-catheter, Every 8 hours scheduled, First dose on Sun10/23/23 at 2330, Flush volume based on line type and size. Given 10/30/2023 5:20 AM HOB MILL OPERATOR 10 mL Given 10/29/2023 9:35 PM HOB MILL OPERATOR 10 mL Given 10/29/2023 2:01 PM HOB MILL OPERATOR 10 mL sodium chloride 0.9% infusion 30 mL/hr, intravenous, Continuous, Starting on 10/13/23 at 0115 New Bag 10/13/2023 12:55 AM HOB MILL OPERATOR 30 mL/hr 30 mL/hr sodium chloride 0.9% infusion 100 mL/hr, intravenous, Continuous, Starting on Sun10/13/23 at 0530 New Bag 10/13/2023 6:47 AM HOB MILL OPERATOR 100 mL/hr 100 mL/hr sodium chloride 0.9% infusion 75 mL/hr, intravenous, Continuous, Starting on Sun10/14/23 at 0700, For 12 hours New Bag 10/14/2023 9:02 AM HOB MILL OPERATOR 75 mL/hr 75 mL/hr sodium chloride 0.9% infusion 3 mL/hr, intravenous, Continuous, Starting on Sun10/24/23 at 0230, Through left radial arterial line Rate/Dose Verify 10/24/2023 7:00 PM HOB MILL OPERATOR 3 mL/hr 3 mL/hr Rate/Dose Verify 10/24/2023 6:00 PM HOB MILL OPERATOR 3 mL/hr 3 mL/hr Rate/Dose Verify 10/24/2023 5:00 PM HOB MILL OPERATOR 3 mL/hr 3 mL/hr sodium chloride 0.9% IVPB 0-250 mL 0-250 mL, intravenous, Once, On Sun10/26/23 at 0345, For 1 dose, Prime blood tubing and administer amount needed to clear line (usually 50-100 mL) after transfusion complete. New Bag 10/26/2023 3:43 AM HOB MILL OPERATOR 250 mL tamsulosin (FLOMAX) extended release capsule 0.8 mg 0.8 mg, oral, Daily with dinner, First dose on Sun10/13/23 at 1800, Do not crush, chew, cut, dissolve, open or otherwise manipulate tablet/capsule., On hold since Sun10/23/2023 at 2304 until manually unheld Given 10/22/2023 6:32 PM HOB MILL OPERATOR 0.8 mg Given 10/21/2023 5:13 PM HOB MILL OPERATOR 0.8 mg Given 10/20/2023 5:35 PM HOB MILL OPERATOR 0.8 mg tamsulosin (FLOMAX) extended release capsule 0.8 mg 0.8 mg, oral, Daily with dinner, First dose on Sun10/24/23 at 1800, Do not crush, chew, cut, dissolve, open or otherwise manipulate tablet/capsule. Given 10/29/2023 6:50 PM HOB MILL OPERATOR 0.8 mg Given 10/28/2023 6:11 PM HOB MILL OPERATOR 0.8 mg Given 10/27/2023 4:49 PM HOB MILL OPERATOR 0.8 mg vancomycin 1500 mg/515 mL in sodium chloride 0.9% (premix) 1,500 mg 1,500 mg, intravenous, Administer over 90 Minutes, Every 12 hours, First dose on Sun10/24/23 at 1230, For 2 doses, Start 1st dose 12 hours after last intra-op dose , Indications: Prophylaxis, SurgicalIndications:Prophylaxis, Surgical New Bag 10/24/2023 11:11 PM HOB MILL OPERATOR 1,500 mg New Bag 10/24/2023 11:45 AM HOB MILL OPERATOR 1,500 mg vancomycin 1500 mg/515 mL in sodium chloride 0.9% (premix) 1,500 mg 1,500 mg, intravenous, Administer over 90 Minutes, Once, On Sun10/23/23 at 2345, For 1 dose, Pre-Op, Administer within 120 minutes of incision., Indications: Prophylaxis, SurgicalIndications:Prophylaxis, Surgical New Bag 10/24/2023 12:54 AM HOB MILL OPERATOR 1,500 mg vancomycin 1500 mg/515 mL in sodium chloride 0.9% (premix) 1,500 mg 1,500 mg, intravenous, Administer over 90 Minutes, Every 12 hours, First dose on Sun10/28/23 at 1015, Indications: Bone/Joint Infection, Prophylaxis, SurgicalIndications:Bone/Joint Infection,Prophylaxis, Surgical New Bag 10/29/2023 9:36 PM HOB MILL OPERATOR 1,500 mg New Bag 10/29/2023 11:33 AM HOB MILL OPERATOR 1,500 mg New Bag 10/28/2023 9:33 PM HOB MILL OPERATOR 1,500 mg documented in this encounter Discontinued Medications Medication Sig Discontinue Reason Start Date End Da te naproxen sodium 220 mg capsuleIndications:Pain Take 1 tablet by mouth 2 (two) times a day as needed (Pain) Stop Taking at Discharge 10/30/2023 mupirocin (BACTROBAN) 2 % ointmentIndications:Lumb ar radiculopathy Apply a small amount to the inside of each nostril, using a clean Q-tip for each nostril, twice a day for 5 days prior to surgery. Stop Taking at Discharge 10/11/2023 10/30/2023 documented as of this encounter Active and Recently Administered Medications Times are shown in HOB MILL OPERATOR. Scheduled Medication Order 10/28/2023 10/29/2023 10/30/2023 acetaminophen (TYLENOL) tablet 1,000 mg (COMPLETED) 1,000 mg, oral, Every 6 hours scheduled, First dose on Sun10/24/23 at 1200, For 18 doses 0019 (Given - Provider: Ritu Marin RN)0618 (Given - Provider: Ritu Marin RN)1156 (Given - Provider: Porsha Lepe RN)1811 (Given - Provider: Erick Melchor RN) ceFAZolin (ANCEF) 100 mg/mL sterile water 2,000 mg (CANCELED) 2,000 mg, intravenous, at 400 mL/hr, Administer over 3 Minutes, Every 8 hours scheduled, First dose on Sun10/28/23 at 1045, Indications: Blood Stream/Endovascular Infection 1103 (Given - Provider: Porsha Lepe, NARENDRA)2132 (Given - Provider: Suzanne Mendoza, NARENDRA) 0601 (Given - Provider: Suzanne Mendoza, NARENDRA)1359 (Given - Provider: Matilda Gonzales RN)2136 (Given - Provider: Suzanne Mendoza, NARENDRA) 0519 (Given - Provider: Suzanne Mendoza, NARENDRA) dilTIAZem XR (CARDIZEM CD,DILACOR XR) 24 hour capsule 240 mg 240 mg, oral, Daily, First dose on Sun10/30/23 at 0900, Do not crush, chew, cut, dissolve, open or otherwise manipulate tablet/capsule. 0956 (Given - Provid er: Matilda Gonzales RN) enoxaparin (LOVENOX) syringe 80 mg 80 mg (rounded from 88.6 mg = 1 mg/kg ? 88.6 kg), subcutaneous, Every 12 hours scheduled, First dose (after last modification) on Sun10/26/23 at 1815, Indications: Pulmonary Embolism 0916 (Given - Provider: Porsha Lepe RN)2132 (Given - Provider: Suzanne Mendoza RN) 0931 (Given - Provider: Matilda Gonzales RN)2134 (Given - Provider: Suzanne Mendoza RN) 0956 (Given - Provider: Matilda Gonzales RN) gabapentin (NEURONTIN) capsule 300 mg 300 mg, oral, Every 8 hours scheduled, First dose on Sun10/23/23 at 2345, Indications: Pain 0618 (Given - Provider: Ritu Marin RN)1326 (Given - Provider: Porsha Lepe, NARENDRA)2132 (Given - Provider: Suzanne Mendoza, NARENDRA) 0601 (Given - Provider: Suzanne Mendoza RN)1401 (Given - Provider: Matilda Gonzales RN)2134 (Given - Provider: Suzanne Mendoza RN) 0519 (Given - Provider: Suzanne Mendoza RN)1539 (Given - Provider: Matilda Gonzales RN - Comment: pt d/c, delay of med) irbesartan (AVAPRO) tablet 300 mg 300 mg, oral, Daily, First dose on Sun10/30/23 at 0900 0956 (Given - Provid er: Matilda Gonzales RN) levETIRAcetam (KEPPRA) tablet 1,000 mg 1,000 mg, oral, 2 times daily, First dose on Sun10/24/23 at 2100, May mix with 120 mL of enteral nutrition formula or disperse crushed tablets (500 mg tablet strength studied) in 10 mL of water, shake for 5 minutes to dissolve, and administer immediately via enteral feeding tube 0916 (Given - Provider: Porsha Lepe RN)2131 (Given - Provider: Suzanne Mendoza, RN) 930 (Given - Provider: Matilda Gonzales RN)2133 (Given - Provider: Suzanne Mendoza RN) 09 (Given - Provider: Matilda Gonzales RN) lidocaine (LIDODERM) 5 % patch 2 patch 2 patch, transdermal, Administer over 12 Hours, Daily, First dose on Sun10/24/23 at 1130, Do not cover the holes on the top side of the patch., Apply to affected area: chest 0111 (Medication Removed - Provider: Ritu Marin RN)1326 (Medication Applied - Provider: Porsha Lepe RN - Comment: ribs) 0200 (Medication Removed - Provider: Suzanne Mendoza RN)1315 (Not Given - Provider: Matilda Gonzales RN - Reason: Patient/family refused - Comment: doesn't think it worked) 1000 (Not Given - Provider: Matilda Gonzales RN - Reason: Patient/family refused - Comment: pt states don't seem to work) pantoprazole DR (PROTONIX) extended release tablet 40 mg 40 mg, oral, Daily, First dose on Sun10/24/23 at 1130, Do not crush, chew, cut, dissolve, open or otherwise manipulate tablet/capsule., Indications: Treatment of Non-Bleeding Gastric Disorder, home med 916 (Given - Provider: Porsha Lepe RN) 930 (Given - Provider: Matilda Gonzales RN) 09 (Given - Provider: Matilda Gonzales RN) polyethylene glycol (MIRALAX) packet 17 g 17 g, oral, 2 times daily, First dose (after last modification) on Sun10/26/23 at 2100, Indications: constipation 915 (Given - Provider: Porsha Lepe RN)2133 (Not Given - Provider: Suzanne Mendoza RN - Reason: Patient/family refused - Comment: soft stools) 0930 (Not Given - Provider: Matilda Gonzales RN - Reason: Contraindicated - Comment: 10/29)2133 (Not Given - Provider: Suzanne Mendoza RN - Reason: Patient/family refused - Comment: soft multiple stools today) 0929 (Not Given - Provider: Matilda Gonzales RN - Reason: Patient/family refused - Comment: BM 10/29) senna-docusate (PERICOLACE) 8.6-50 mg per tablet 2 tablet 2 tablet, oral, 2 times daily, First dose on Sun10/23/23 at 2345, Hold for diarrhea., Indications: constipation 0916 (Given - Provider: Porsha Lepe RN)213 (Not Given - Provider: Suzanne Mendoza RN - Reason: Patient/family refused - Comment: soft stools) 0930 (Not Given - Provider: Matilda Gonzales RN - Reason: Patient/family refused)2134 (Not Given - Provider: Suzanne Mendoza RN - Reason: Patient/family refused - Comment: soft multiple stools today) 0958 (Not Given - Provider: Matilda Gonzales RN - Reason: Contraindicated - Comment: loose BM 10/30) sodium chloride 0.9% flush 0.5-20 mL 0.5-20 mL, intra-catheter, Every 8 hours scheduled, First dose on Sun10/23/23 at 2345, Flush volume based on line type and size. , Indications: Flushing 0619 (Given - Provider: Ritu Marin RN)1334 (Given - Provider: Porsha Lepe RN)2133 (Given - Provider: Suzanne Mendoza RN) 0602 (Given - Provider: Suzanne Mendoza RN)1400 (Given - Provider: Matilda Gonzales RN)213 (Given - Provider: Suzanne Mendoaz RN) 0520 (Given - Provider: Suzanne Mendoza RN)1400 (Due) sodium chloride 0.9% flush 0.5-20 mL 0.5-20 mL, intra-catheter, Every 8 hours scheduled, First dose on Sun10/23/23 at 2330, Flush volume based on line type and size. 0618 (Given - Provider: Ritu Marin RN)1333 (Given - Provider: Porsha Lepe RN)213 (Given - Provider: Suzanne Mendoza RN) 0602 (Given - Provider: Suzanne Mendoza, NARENDRA)1401 (Given - Provider: Matilda Gonzales, NARENDRA)2135 (Given - Provider: Suzanne Mendoza RN) 0520 (Given - Provider: Suzanne Mendoza RN)1400 (Due) tamsulosin (FLOMAX) extended release capsule 0.8 mg 0.8 mg, oral, Daily with dinner, First dose on Sun10/24/23 at 1800, Do not crush, chew, cut, dissolve, open or otherwise manipulate tablet/capsule. 181 (Given - Provider: Erick Melchor RN) 1850 (Given - Provider: Matilda Gonzales RN) vancomycin 1500 mg/515 mL in sodium chloride 0.9% (premix) 1,500 mg (CANCELED) 1,500 mg, intravenous, Administer over 90 Minutes, Every 12 hours, First dose on 10/28/23 at 1015, Indications: Bone/Joint Infection, Prophylaxis, Surgical 1103 (New Bag - Provider: Porsha Lepe, NARENDRA)2133 (New Bag - Provider: Suzanne Mendoza RN) 1133 (New Bag - Provider: Porsha Lepe, NARENDRA)213 (New Bag - Provider: Suzanne Mendoza RN) PRN Medication Order 10/28/2023 10/29/2023 10/30/2023 cyclobenzaprine (FLEXERIL) tablet 5 mg 5 mg, oral, 3 times daily PRN, muscle spasms, Starting on [place] 10/25/23 at 0806 0449 (Given - Provider: Suzanne Mendoza RN)1355 (Return to Cabinet - Provider: Maitlda Gonzales, NARENDRA) diphenhydrAMINE (BENADRYL) tab/cap 25 mg 25 mg, oral, 4 times daily PRN, itching, Starting on 10/28/23 at 0113 0119 (Given - Provider: Ritu Marin RN)0920 (Given - Provider: Porsha Lepe, NARENDRA) diphenhydrAMINE-zinc acetate 2-0.1 % cream topical, Daily PRN, itching, Starting on 10/27/23 at 0913, Apply to affected area: IV access site, Indications: Pruritus of Skin hydrocortisone 2.5 % cream topical, 2 times daily PRN, irritation, rash, Do not apply on/near surgical incision, Starting on 10/28/23 at 1549, For 48 hours, Apply to affected area: rash HYDROmorphone (DILAUDID) injection 0.5 mg 0.5 mg, intravenous, Administer over 2 Minutes, Every 2 hours PRN, 2nd line for pain, Starting on Sun10/24/23 at 2245, Indications: Pain ondansetron (ZOFRAN) injection 4 mg 4 mg, intravenous, Administer over 2 Minutes, Every 6 hours PRN, nausea, vomiting, Starting on Sun10/23/23 at 2248, Indications: nausea and vomiting oxyCODONE (ROXICODONE) tablet 5 mg 5 mg, oral, Every 4 hours PRN, 1st line for pain, Starting on Sun10/30/23 at 0631, Indications: Pain ramelteon (ROZEREM) tablet 8 mg 8 mg, oral, Nightly PRN, sleep, Starting on Sun10/28/23 at 2033, Indications: Sleep-Onset Insomnia 1 (Given - Provider: Suzanne Mendoza RN) 2255 (Given - Provider: Suzanne Mendoza RN) sodium chloride 0.9% flush 0.5-20 mL 0.5-20 mL, intra-catheter, As needed, line care, Starting on Sun10/23/23 at 2301, Flush volume based on line type and size. Flush before and after each use. , Indications: Flushing documented in this encounter Orders Medications Ordered That Armando ht Not Have Been Administered Count Last Ordered Date First Ordered Date oxyCODONE (ROXICODONE) tablet 5 mg 3 202210/13/2023 ceFAZolin (ANCEF) 1,500 mg i n sodium chloride 0.9% 100 mL IVPB 1 10/28/2023 hydrocortisone 2.5 % cream 1 10/28/2023 enoxaparin (LOVENOX) syringe 80 mg 1 2022 sodium chloride 0.9% IVPB 0-250 mL 1 2022 potassium chloride ER (KLOR- CON) extended release tablet 40 mEq 1 10/25/2023 dextrose (D10W) 10% bolus 250 mL 3 10/24/20 dextrose gel in packet 15 g 3 10/24/2023 glucagon injection 1 mg 3 10/24/2023 sodium chloride 0.9% bolus 1,000 mL 1 10/24 acetaminophen (TYLENOL) tablet 1,000 mg 5 1 12/24/2022 10/18/2023 baclofen (LIORESAL) tablet 5 mg 1 bisacodyL (DULCOLAX) suppository 10 mg 1 bisacodyl EC (DULCOLAX EC) tablet 10 mg 1 1 12/24/2022 Carrier Fluids for Secondary Infusion - 0.9% Sodium Chloride 5 10/23/2023 10/13/2023 ceFAZolin (ANCEF) 2,000 mg/2 0 mL in sterile water (premix) 2,000 mg 2 10/23/2023 dextrose 5% and sodium chlor adele 0.9% infusion (premix) 1 10/23/2023 enoxaparin (LOVENOX) syringe 40 mg 3 202210/13/2023 famotidine (PEPCID) 20 mg/50 mL in sodium chloride 0.9% (premix) 20 mg 1 10/23/2023 gabapentin (NEURONTIN) capsule 300 mg 1 haloperidol (HALDOL) injection 1 mg 1 10/23 hydrALAZINE (APRESOLINE) injection 5 mg 1 1 12/24/2022 HYDROmorphone (DILAUDID) injection 0.2 mg 3 10/23/2023 10/13/2023 HYDROmorphone (DILAUDID) injection 0.4 mg 2 10/23/2023 10/18/2023 HYDROmorphone in 0.9% sodium chloride (DILAUDID) 20 mg/100 mL (0.2 mg/mL) (premix) 1 10/23/2023 labetaloL (NORMODYNE,TRANDAT E) injection 5 mg 1 10/23/2023 Lactated Ringer's (LR) infusion 3 3 10/13/2023 Lactated Ringer's (LR) infus ion - ADS Override Pull 2 10/23/2023 levETIRAcetam (KEPPRA) 4,500 mg in sodium chloride 0.9% 100 mL IVPB 1 10/23/2023 LORazepam (ATIVAN) 2 mg/mL i njection - ADS Override Pull 2 10/23/2023 LORazepam (ATIVAN) injection 0.5 mg 2 10/23 magnesium hydroxide (MILK OF MAGNESIA) 80 mg/mL (33.3 mg/mL as elemental magnesium) oral suspension 30 mL 1 10/23/2023 methadone injection syringe 15 mg 1 023 mineral oil (FLEET MINERAL O IL) enema 133 mL 1 10/23/2023 multivit [id number] lcium (THERA-M) tablet 1 tablet 1 10/23/2023 naloxone (NARCAN) 0.4 mg/mL injection 0.04-0.4 mg 4 10/23/2023 10/13/2023 ondansetron (ZOFRAN) injection 4 mg 2 10/2310/18/2023 prochlorperazine (COMPAZINE) injection 5 mg 3 10/23/2023 10/18/2023 sodium chloride 0.9% 0.9% in fusion - ADS Override Pull 1 10/23/2023 sodium chloride 0.9% flush 0.5-20 mL 6 10/0510/13/2023 sodium chloride 0.9% irrigation 3 3 10/13/2023 succinylcholine (ANECTINE) 2 0 mg/mL injection - ADS Override Pull 1 10/23/2023 vancomycin (VANCOCIN) solution 1 10/23/2023 vancomycin 1500 mg/515 mL in sodium chloride 0.9% (premix) 1,500 mg 1 10/23/2023 famotidine (PEPCID) injection 20 mg 1 10/18 fentaNYL (SUBLIMAZE) preserv ative free injection 50 mcg 3 10/18/2023 iothalamate meglumine (CONRA Y) 60 % injection 2 10/18/2023 10/13/2023 metoclopramide (REGLAN) 5 mg /mL injection 10 mg 1 10/18/2023 sodium chloride 0.9% infusion 2 10/14/2023 10/13/2023 acyclovir (ZOVIRAX) tablet 400 mg 1 023 amisulpride (BARHEMSYS) injection 10 mg 1 1 12/14/2022 diphenhydrAMINE (BENADRYL) 5 0 mg/mL injection 12.5 mg 1 10/13/2023 fentaNYL (SUBLIMAZE) preserv ative free injection 25 mcg 1 10/13/2023 gentamicin (GARAMYCIN) 520 m g in sodium chloride 0.9% 52 mL (10 mg/mL) syringe 1 10/13/2023 cyclobenzaprine (FLEXERIL) tablet 5 mg 1 Lab Orders Without Results Count Last Ordered D ate First Ordered Date MAGNESIUM 1 10/29/2023 PHOSPHORUS 1 10/29/2023 POCT GLUCOSE DEVICE 9 10/25/2023 10/23/20 Diet Count Last Ordered Date First Orde red Date ADULT DISCHARGE DIET 1 10/30/2023 Nursing Count Last Ordered Date First Orde red Date DISCHARGE ACTIVITY 5 10/30/2023 DISCHARGE CALL PROVIDER 2 10/30/2023 DISCHARGE DRESSING 5 10/30/2023 DISCHARGE INSTRUCTIONS 4 10/30/2023 NURSING COMMUNICATION 5 10/26/20232022 TELEMETRY MONITORING 1 10/26/2023 DISCONTINUE VASCULAR ACCESS (SPECIFY) 1 HARRIS CATHETER - DISCONTINUE 1 10/25/2023 VERIFY INFORMED CONSENT 1 10/24/2023 BATHE PATIENT 1 10/23/2023 INSERT HARRIS CATHETER 1 10/23/[address]23 PLACE SEQUENTIAL COMPRESSION DEVICE 1 10/23 VITAL SIGNS 1 10/23/2023 WEIGH PATIENT 1 10/23/2023 SKIN PREP 1 10/14/2023 VOID ADULT CARE PROVIDER TO OR 1 10/14/2023 ASSESS 1 10/13/2023 Consult Count Last Ordered Date First Orde red Date IP CONSULT TO NEUROSURGERY 1 10/28/2023 IP CONSULT TO INTERNAL MEDICINE 1 IP CONSULT TO NEUROLOGY 1 10/23/2023 IP CONSULT TO ORTHO SPINE 1 10/12/2023 IP CONSULT TO UROLOGY 1 10/12/2023 Admission Count Last Ordered Date First Orde red Date ADMIT TO INPATIENT 2 10/23/2023 12/09/202 3 INITIATE OBSERVATION SERVICES 1 10/23/2023 Transfer Count Last Ordered Date First Orde red Date TRANSFER PATIENT TO NEW UNIT 3 10/26/2023 10/23/2023 Discharge Count Last Ordered Date First Orde red Date DISCHARGE PATIENT 1 10/30/2023 CORE MEASURES Count Last Ordered Date First Ord ered Date REASON FOR NO VTE PROPHYLAXIS AT ADMISSION 1 10/24/2023 REASON FOR NO VTE PROPHYLAXI S - HOSPITAL ADMISSION - MEDICATIONS 2 10/23/2023 10/18/2023 Case Request Count Last Ordered Date First Orde red Date CASE REQUEST OPERATING ROOM 2 10/17/2023 10/12/2023 documented in this encounter Care Teams Equipment Inspector Relationship Specialty Start Date End Date Rl Medina DO [address] [place] [address] PCP - General 08/09/17 05/25/24 Em Witt, RN [id number] [address] [facility] Outpatient Capacity Planning Analyst 10/30/23 10/30/23 documented as of this encounter
--- OUTSIDE RECORDS SUMMARY | 2024-11-05 19:25 | XMS_ITS | Encounter Summary ---
Author Organization [facility] Healthcare Address [address] [place] [address] Care Team Providers Care Tipple Repairer Name Role Phone Rl Medina DO Primary Care Provider [phone] Reason for Visit * Auth/Cert Specialty Diagnoses / Procedures Referred By Contac t Referred To Contact Diagnoses Ureteral colic Procedures na Referral ID Status Reason Start Date Expiration Date Visits Re quested Visits Authorized [id number] 1 1 Encounter Details Date Type Department Care Team (Late st Contact Info) Description 10/23/2023 4:23 PM INSPECTOR FIBROUS WALLBOARD Anesthesia Event [facility] Operating Room [address] [place] [address] Ann Salazar MD [address] [place] [address] Kendrick Partida MD [address] [place] [address] Anesthesia Record Procedure Summary Procedure Name Responsible Anesthesiologist Anesthesia Start Time Anesthesia Stop Time FUSION SPINAL - POSTERIOR LUMBAR/THORACIC WITH INSTRUMENTATION: L4-5 open posterior spinal fusion with instrumentation, L4-5 transforaminal lumbar interbody fusion, L4-5 laminectomy and direct decompression, spinal cord monitoring, autograft, allograft (Spine Lumbar) Ann Salazar MD 10/23/23 1623 10/23/23 2245 Events Date Time Event Comment 10/23/2023 1221 In Preop 1400 Start Supplemental O2 1401 Time out - Regional 1402 An Block Induction The patie nt was reevaluated immediately before moderate or deep sedation and before anesthesia induction. 1406 Block Placed 1407 Block Placed 1408 Face Time 1623 An Start 1626 In Room 1626 An Start Data 1629 An Induction The patient was reevaluated immediately before moderate or deep sedation use and before anesthesia induction. 1631 An Intubation 1650 Anesthesia Ready 1700 Patient Positioned Prone 1701 Quick Note Eyes and nose c hecked, free of pressure 1714 Proc Start 1714 Incision Start 1800 Quick Note Eyes free of pr essure 1930 Quick Note Eyes free of pr essure 2126 Position Supine 2127 An Extubation 212 Proc Fin 2130 an stop data 213 Out of Room 2140 Quick Note Upon entering P ACU, patient noted to have full-body shaking, right gaze deviation, unresponsive. Had tonic-clonic seizure with large movements of arms and legs for 15-20 seconds, lost pulses. CPR started, given 1x code dose epi. Regained ROSC after 2 minutes. Noticeably post-ictal in this period, breathing regularly and protecting airway. Hypotensive at this time, started on norepinephrine gtt. Decision made to transfer to ICU. Did not intubate at this time as patient was able to maintain saturations without masking/bagging. 2244 Handoff to RN I completed my handoff [...] the time of handoff: No value filed. 2244 An Stop Meds Name Total midazolam PF 1 mg lidocaine (cardiac) syringe 2 % 100 mg propofol 300 mg propofol 2,349.93 mg fentaNYL 300 mcg rocuronium 10 mg succinylcholine 80 mg ondansetron PF (ZOFRAN) 2 mg/mL injectio n 4 mg BUPivacaine 0.25% PF 40 mL methadone 10 mg/mL 10 mg ceFAZolin (ANCEF) 2,000 mg/20 mL in ster ile water (premix) 2,000 mg 4,000 mg vancomycin 1500 mg/515 mL in sodium chlo ride 0.9% (premix) 1,500 mg 1,500 mg tranexamic acid 10 mg/mL 100 mL (premix) 2,250.2 mg dexmedeTOMIDine 80mcg/20mL (4 mcg/mL) 16 mcg Lactated Ringer's (LR) infusion 1,300 mL * Agents Name O2% N2O O2 Air Sevoflurane Inspired Sevoflurane * Blood No blood administrations on file. Lines, Drains, and Airways Type Details Placement Removal RETIRED Surgical Site 10/13/23; 0255; Pe nis; 10/24/23; 0800 (no wound present); Removal date unknown/not present on admission 10/13/23 0255 by Daniela Kothari RN 10/24/23 0800 by Lusi Ruffin RN Peripheral IV Placement Date: 10/13/23; Placement Time: 09; Catheter Size: 20 G; Orientation: Right; Location: Forearm; Site Prep: Chlorhexidine; Inserted by: Migeulito Norman RN; Insertion Attempts: 1; Patient Tolerance: Tolerated well; Removal Date: 10/23/23; Removal Time: 2300; Removal Reason: Not present on admission 10/13/23 09 by Carey Norman RN 10/23/23 2300 by Edwige Porras RN Peripheral IV Placement Date: 10/13/23; Placement Time: 1052; Catheter Size: 20 G; Orientation: Left; Location: Antecubital; Removal Date: 10/30/23; Removal Time: 1404; Removal Reason: Discharge 10/13/23 1052 by Js Cardenas RN 10/30/23 1404 by Matilda Gonzales RN Peripheral IV Placement Date: 10/18/23; Placement Time: 09 (created via procedure documentation); Catheter Size: 18 G; Orientation: Right; Location: Hand; Site Prep: Alcohol; Insertion Attempts: 1; Removal Date: 10/29/23; Removal Time: 0659 (unk prev shift); Removal Reason: Other (Comment) (unk) 10/18/23 0951 by Nolvia Multani MD 10/29/23 0659 by Matilda Gonzales, NARENDRA Urethral Catheter Placement Date: 10/18/23; Placement Time: 1115; Inserted by: Vero Tolentino; Type: Non-latex; Balloon Size: 10 mL; Urine Returned: Yes; Removal Date: 10/23/23; Removal Time: 2133; Removal Reason: Disontinued in OR 10/18/23 1115 by Gloria Cifuentes RN 10/23/232133 by Rena Michelle RN RETIRED Surgical Site 10/18/23; 1127; Le ft; Flank; 10/24/23; 0800; Removal date unknown/not present on admission 10/18/23 1127 by Gloria Cifuentes RN 10/24/23 0800 by Luis Ruffin RN Peripheral IV Placement Date: 10/23/23; Placement Time: 1639; Catheter Size: 16 G; Orientation: Right; Location: Wrist; Site Prep: Alcohol; Technique: Anatomical landmarks; Insertion Attempts: 2; Patient Tolerance: Tolerated well; Removal Date: 10/24/23; Removal Time: 1899; Removal Reason: Per patient/family request 10/23/23 1640 by Alice Vaughn MD 10/24/231899 by Edwige Porras RN ETT Placement Date: 10/23/23; Placement Time: 1717 (created via procedure documentation); Mask Ventilation: 1; Technique: Video laryngoscopy; Type: ETT - single; Single Lumen Tube Size: 7.5 mm; Cuffed: Yes; Laryngoscope: Bennett; Blade Size: 4; Location: Oral; Insertion Attempts: 1; Placement Verification: Auscultation, Capnometry; Removal Date: 10/23/23; Removal Time: 212610/23/231717 by Alice Vaughn MD 10/23/232126 by Alice Vaughn MD RETIRED Surgical Site 10/23/23; 1748; Ba ck; 12/26/23 10/23/23 174 by Yeni Walker RN 12/26/23 0000 by Kishan Hanson RN Closed/Suction/Open Drain 10/23/23; 2047; No; 1; Right; Back; Bulb; 10 Fr.; Removal date unknown/not present on admission 10/23/232047 by Rena Michelle RN 11/08/238 by Silver Chow RN Arterial Line Placement Date: 10/23/23; Placemnt Time: 2224; Orientation: Left; Location: Radial; Removal Date: 10/25/23; Removal Time: 1700 10/23/232224 by Nolvia Gonzales RN 10/25/231699 by Tamia Holman RN documented in this encounter Social History Tobacco Use Types Packs/Day Years Used Date Smoking Tobacco: Former Cigarettes 1 11 0 11/05/1968 - 11/05/1979 Passive Smoke Exposure: Past Smokeless Tobacco: Never Alcohol Use Standard Drinks/Week Comments Yes 14 (1 standard drink = 0.6 oz pu re alcohol) social [facility] Utilities Answer Date Recorded In the past 12 months has th [place], gas, oil, or water [employer] threatened to shut off services in [...] on file 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 Anesthesia Evaluation Hira Evans is a 73 y.o. male Procedure(s): FUSION SPINAL - POSTERIOR LUMBAR/THORACIC WITH INSTRUMENTATION: L4-5 open posterior spinal fusion with instrumentation, L4-5 transforaminal lumbar interbody fusion, L4-5 laminectomy and direct decompression, spinal cord monitoring, autograft, allograft LAMINECTOMY LUMBAR - POSTERIOR SPINAL CORD MONITORING Pre-Op Diagnosis Codes: * Hydronephrosis with urinary obstruction due to renal calculus [N13.2] Patient Active Problem List Diagnosis Date Noted ??? S/P spinal fusion 10/23/2023 ??? Cardiac arrest (HCC) 10/23/2023 ??? Left perinephric collection, 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 10/15/2023 ??? Ureteral colic 10/13/2023 ??? UTI (urinary tract infection) 10/13/2023 ??? Hydronephrosis with urinary obstruction due to renal calculus 10/12/2023 ??? Lumbar radiculopathy 10/08/2023 ??? Gross hematuria 10/18/2022 ??? Bladder neck obstruction 10/17/2022 ??? Lesion of urinary bladder 10/17/2022 ??? Prostate cancer (HCC) 10/17/2022 ??? HTN (hypertension) 10/10/2021 ??? Risk factors for obstructive sleep apnea 10/10/2021 ??? 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 Presence of right artificial knee [...] NEPHROSTOMY PCN LEFT Left 10/14/2023 ??? PROSTATECTOMY 2008 ??? REPLACEMENT TOTAL KNEE Left 10/17/2021 ??? REVISION TOTAL KNEE ARTHROPLASTY Right 09/30/2019 ??? VASECTOMY 30 years ago No Known Allergies [...] capsule -- -- -- Fidelia Perdue MD DILT-XR 240 mg 24 hr capsule -- 05/12/19 -- Fidelia Perdue MD fish,bora,flax oils-om3,6,9no1 400-400-400 mg capsule -- -- -- Fidelia Perdue MD irbesartan (AVAPRO) 300 mg tablet -- 08/10/21 -- Fidelia Perdue MD Mounarie 10 mg/0.5 mL pen injector -- 04/05/23 -- Fidelia Perdue MD mupirocin (BACTROBAN) 2 % ointment -- 10/11/23 -- Marcial Vu MD Apply a small amount to the inside of each nostril, using a clean Q-tip for each nostril, twice a day for 5 days prior to surgery. naproxen sodium 220 mg capsule -- -- -- Fidelia Perdue MD omeprazole (PriLOSEC) 20 mg capsule -- -- -- Fidelia Perdue MD Current Facility-Administered Medications: ??? [Held by Provider] baclofen (LIORESAL) tablet 5 mg, 5 mg, oral, Q8H CAMMY ??? Carrier Fluids for Secondary Infusion - 0.9% Sodium Chloride, 30 mL, intravenous, PRN ??? Carrier Fluids for Secondary Infusion - 0.9% Sodium Chloride, 30 mL, intravenous, PRN ??? Carrier Fluids for Secondary Infusion - 0.9% Sodium Chloride, 30 mL, intravenous, PRN ??? ceFAZolin (ANCEF) 2,000 mg/20 mL in sterile water (premix) 2,000 mg, 2,000 mg, intravenous, Q8HSCH, 2,000 mg at 10/24/23 0451 ??? dextrose gel in packet 15 g, 15 g, oral, Q15 Min PRN OR dextrose (D10W) 10% bolus 250 mL, 250 mL, intravenous, Q15 Min PRN ??? [Held by Provider] dextrose 5% and sodium chloride 0.9% infusion (premix), 75 mL/hr, intravenous, Continuous ??? [Held by Provider] dilTIAZem XR (CARDIZEM CD,DILACOR XR) 24 hour capsule 240 mg, 240 mg, oral, BID, 240 mg at 10/23/23 0941 ??? [Held by Provider] gabapentin (NEURONTIN) capsule 300 mg, 300 mg, oral, Q8H CAMMY ??? glucagon injection 1 mg, 1 mg, intramuscular, Q30 Min PRN ??? heparin in 0.9% sodium chloride 25,000 unit/250 mL infusion (premix), 0-33 Units/kg/hr, intravenous, Titrated, Last Rate: 12.59 mL/hr at 10/24/23 0610, 14.1 Units/kg/hr at 10/24/23 0610 ??? HYDROmorphone (DILAUDID) injection 0.2 mg, 0.2 mg, intravenous, Q2H PRN, 0.2 mg at 10/24/23 0323 ??? insulin lispro (HumaLOG, ADMELOG) 100 unit/mL injection 0-10 Units, 0-10 Units, subcutaneous, Q4H CAMMY, 2 Units at 10/24/23 0451 ??? Lactated Ringer's (LR) infusion - ADS Override Pull, , , ??? levETIRAcetam (KEPPRA) 1,000 mg/100 mL in sodium chloride (premix) 1,000 mg, 1,000 mg, intravenous, Q12H CAMMY ??? [Held by Provider] multivit lovxlrxm-ruyk-UQ-calcium (THERA-M) tablet 1 tablet, 1 tablet, oral,Daily ??? naloxone (NARCAN) 0.4 mg/mL injection 0.04-0.4 mg, 0.04-0.4 mg, intravenous, Q10 Min PRN ??? norepinephrine in dextrose 5% (LEVOPHED) 8,000 mcg/250 mL (32 mcg/mL) infusion (premix), 0-0.25mcg/kg/min, intravenous, Titrated, Last Rate: 10.05 mL/hr at 10/24/23 0002, 0.06 mcg/kg/min at 10/24/23 0002 ??? ondansetron (ZOFRAN) injection 4 mg, 4 mg, intravenous, Q6H PRN ??? [Held by Provider] oxyCODONE (ROXICODONE) tablet 5 mg, 5 mg, oral, Q4H PRN ??? [Held by Provider] senna-docusate (PERICOLACE) 8.6-50 mg per tablet 2 tablet, 2 tablet, oral, BID ??? sodium chloride 0.9% 0.9% infusion - ADS Override Pull, , , ??? sodium chloride 0.9% flush 0.5-20 mL, 0.5-20 mL, intra-catheter, Q8H CAMMY, 10 mL at 10/24/23 0500 ??? sodium chloride 0.9% flush 0.5-20 mL, 0.5-20 mL, intra-catheter, PRN ??? sodium chloride 0.9% flush 0.5-20 mL, 0.5-20 mL, intra-catheter, Q8H CAMMY, 10 mL at 10/24/23 0500 ??? sodium chloride 0.9% flush 0.5-20 mL, 0.5-20 mL, intra-catheter, PRN ??? sodium chloride 0.9% flush 0.5-20 mL, 0.5-20 mL, intra-catheter, PRN ??? sodium chloride 0.9% infusion, 3 mL/hr, intravenous, Continuous, Last Rate: 3 mL/hr at 151, 3 mL/hr at 10/24/23 0151 ??? succinylcholine (ANECTINE) 20 mg/mL injection - ADS Override Pull, , , ??? [Held by Provider] tamsulosin (FLOMAX) extended release capsule 0.8 mg, 0.8 mg, oral, Daily with dinner, 0.8 mg at 10/22/23 1832 ??? vancomycin 1500 mg/515 mL in sodium chloride 0.9% (premix) 1,500 mg, 1,500 mg, intravenous, Q12H Social History Tobacco Use Smoking Status Former ??? Packs/day: 1.00 ??? Years: 8.00 ??? Additional pack years: 0.00 ??? Total pack years: 8.00 ??? Types: Cigarettes ??? Start date: 11/05/1968 ??? Quit date: 11/05/1979 ??? Years since quittin.9 ??? Passive exposure: Past Smokeless Tobacco Never Alcohol Use: Not At Risk (10/23/2023) AUDIT-C ??? Frequency of Alcohol Consumption: 4 or more times a week ??? Average Number of Drinks: 1 or 2 ??? Frequency of Binge Drinking: Never Substance and Sexual Activity Drug Use Yes ??? Frequency: 7.0 times per week ??? Types: Medical marijuana Comment: MJ = edibles [...] TW Conv) ??? Anesthesia problems Neg Hx Vitals: 10/24/23 0400 10/24/23 0500 10/24/23 0600 BP: Pulse: 81 82 87 Resp: Temp: 37.3 ??C (99.1 ??F) 37.6 ??C (99.7 ??F) 37.7 ??C (99.9 ??F) SpO2: 93% 94% 91% PT: 10/24/2023: 13.7 sec INR: 10/24/2023: 1.20 APTT: 10/24/2023: 30 sec Hgb A1C: No results found for requested labs within last 30 days. CBC RBC: 10/24/2023: 2.76 M/cumm (L) RDW: No results found for requested labs within last 30 days. MCHC: 10/24/2023: 35.4 g/dL MCH: 10/24/2023: 32.6 pg MCV: 10/24/2023: 92.0 fL Hct: 10/24/2023: 25.4 % (L) Hgb: 10/24/2023: 9.0 g/dL (L) WBC: 10/24/2023: 22.9 K/cumm (H) MPV: 10/24/2023: 10.8 fL Platelets: 10/24/2023: 366 K/cumm RDW CV: 10/24/2023: 12.5 % RDW Sd: 10/24/2023: 41.8 fL BMP Glucose: 10/24/2023: 180 mg/dL Calcium: 10/23/2023: 8.3 mg/dL (L) Sodium: 10/23/2023: 137 mmol/L Potassium: 10/23/2023: 4.1 mmol/L CO2: 10/23/2023: 23 mmol/L Chloride: 10/23/2023: 102 mmol/L BUN: 10/23/2023: 12 mg/dL Creatinine: 10/23/2023: 1.07 mg/dL STOP-Bang Total Score: 3 DOS Physical Exam Medical history, medications, and allergies reviewed. Attestation: I endorse the findings of the anesthesia pre-evaluation assessment dated: 10/24/2023. Airway Exam: Mallampati: III Cervical ROM: FROM TM distance: >4 Cardiovascular Exam: Rate: regular Rhythm: regular Pulmonary Exam: LCTA, bilat EENT Exam: trachea midline Dental Exam: Appears intact Skin Exam: Skin is warm. Current state: Patient's current state is cooperative. Anesthesia Plan ASA 2 My patient is approved for the Anesthesia Controlled Medication protocol when under care of a VP MEDICAL Planned anesthesia: General TIVA Team communication plan: oral ET tube Induction: Induction: intravenous. Postoperative Plan: Postoperative administration opioids intended. No postoperative mechanical ventilation intended. Patient's planned disposition post procedure is Obs. unit. Planned trial extubation. Informed Consent: Discussed plan with resident, attending and VP MEDICAL. Anesthesia plan and risks discussed with patient, spouse and daughter. Consent and Attending signature: I and/or my designee have discussed the anesthesia plan, benefits, possible alternatives, parental presence at time of induction (if indicated), and clinically relevant risks that may include dental injury, unintentional awareness, and/or other complications. The patient and/or parent/legal guardian understand, and agree to proceed. All questions answered. ECTOR FIBROUS WALLBOARD * Anesthesia Postprocedure Evaluation - Alice Vaughn MD - 10/23/2023 10:53 PM CST Patient: Hira Evans Procedure Summary Date: 10/23/23 Room / Location: [facility] OR POD 5 ROOM 234 / [facility] OR POD 5 Anesthesia Start: 1623 Anesthesia Stop: 2244 Procedures: FUSION SPINAL - POSTERIOR LUMBAR/THORACIC WITH INSTRUMENTATION: L4-5 open posterior spinal fusion with instrumentation, L4-5 transforaminal lumbar interbody fusion, L4-5 laminectomy and direct decompression, spinal cord monitoring, autograft, allograft (Spine Lumbar) LAMINECTOMY LUMBAR - POSTERIOR (Spine Lumbar) SPINAL CORD MONITORING Diagnosis: Lumbar radiculopathy (Lumbar radiculopathy [M54.16]) Surgeons: Marcial Vu MD Responsible Provider: Ann Salazar MD Anesthesia Type: general TIVA ASA Status: Not recorded Anesthesia Type: general TIVA Last vitals BP 95/54 Pulse 108 Temp 36.9 ??C (98.4 ??F) (Axillary) Resp 18 SpO2 100% Anesthesia Post Evaluation Patient location during evaluation: ICU Patient participation: complete - patient cannot participate Level of consciousness: confused, lethargic and 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 Patient was fully monitored through transport. Pt arrived in ICU stable with vital signs similar to above and was handed off to primary team. Patient noted to be shaking during closure, abated after propofol given. Seized in PACU, started with generalized shaking, R gaze deviation, not following commands, obtunded. Arrested after 15-20 seconds, CPR started. 1x dose code epi given. ROSC after 2min. Notably post-ictal. Decision made to transfer to ICU. No notable events documented. Cosigned by Myke Smith MD PhD at 11/07/2023 4:49 PM INSPECTOR FIBROUS WALLBOARD ECTOR FIBROUS WALLBOARD ECTOR FIBROUS WALLBOARD * Anesthesia Procedure Notes - Alcie Vaughn MD - 10/23/2023 5:18 PM CSTAssociated Order(s): Airway Airway Patient location: OR Urgency: elective Indications for airway management: anesthesia Difficult airway: no Staff: Supervising provider: Ann Salazar MD Placed by: Resident: Alice Vaughn MD Emergent airway documentation: Risks and benefits [...] placement: video laryngoscopy Devices/Methods used in placement: intubating stylet Insertion site: oral Blade type: Bennett Video blade type: Jimenez Blade size: 4 Cormack-Lehane (video): grade I - full view of glottis ETT to lips: 24 cm Placement verified by: auscultation and CO2 detection Airway secured with: silk tape Number of attempts: 1 ECTOR FIBROUS WALLBOARD * Anesthesia Procedure Notes - Louis Myers MD - 10/23/2023 2:45 PM CSTAssociated Order(s): Peripheral Block Images from the original note were not included. Peripheral Block Patient location during procedure: pre-op holding Reason for block: post-op pain management per surgeon request Ultrasound image in chart or stored: yes Block type: single shot Laterality: right Block type: erector spinae plane block Staff: Supervising provider: Kendrick Partida MD Placed by: Fellow: Louis Myers MD Procedure prep: Preprocedure checklist: patient identified, procedure contraindications assessed, site marked, procedure consent, surgical consent, IV checked, risks, benefits and alternatives discussed, monitors and equipment checked and timeout performed Patient position: sitting and head of bed elevated Procedure performed while patient: sedate with meaningful contact Monitoring: oximetry Supplemental O2: nasal cannula Prep solution: chlorhexidine/alcohol Skin infiltrated with lidocaine 1%: yes Peripheral nerve block: Technique: ultrasound guided Needle type: short-bevel and echogenic Needle gauge: 21 G Needle length: 80 mm Injection assessment: injection made incrementally with constant monitoring, local visualized surrounding nerve on ultrasound, negative aspiration for heme, no paresthesias noted, normal resistance to injection and see flowsheet for medication details Assessment: Block success: full evaluation pending Events: patient tolerated procedure well with no complications Cosigned by Kendrick Partida MD at 10/24/2023 10:17 AM INSPECTOR FIBROUS WALLBOARD ECTOR FIBROUS WALLBOARD ECTOR FIBROUS WALLBOARD * Anesthesia Procedure Notes - Kendrick Partida MD - 10/23/2023 2:43 PM CSTAssociated Order(s): Peripheral Block Images from the original note were not included. Peripheral Block Patient location during procedure: pre-op holding Reason for block: post-op pain management per surgeon request Ultrasound image in chart or stored: yes Block type: single shot Laterality: left Block type: erector spinae plane block Staff: Supervising provider: Kendrick Partida MD Placed by: Fellow: Louis Myers MD Procedure prep: Preprocedure checklist: patient identified, procedure contraindications assessed, site marked, procedure consent, surgical consent, IV checked, risks, benefits and alternatives discussed, monitors and equipment checked and timeout performed Patient position: sitting and head of bed elevated Procedure performed while patient: sedate with meaningful contact Monitoring: oximetry Supplemental O2: nasal cannula Prep solution: chlorhexidine/alcohol Skin infiltrated with lidocaine 1%: yes Peripheral nerve block: Technique: ultrasound guided Needle type: short-bevel and echogenic Needle gauge: 21 G Needle length: 80 mm Injection assessment: injection made incrementally with constant monitoring, local visualized surrounding nerve on ultrasound, negative aspiration for heme, no paresthesias noted, normal resistance to injection and see flowsheet for medication details Assessment: Block success: full evaluation pending Events: patient tolerated procedure well with no complications ECTOR FIBROUS WALLBOARD ECTOR FIBROUS WALLBOARD documented in this encounter Plan of Treatment Not on file documented as of this encounter Procedures Procedure Name Priority Date/Time Associated Diagnosis Comments ANESTHESIA INTUBATION Routine 10/23/2023 5:18 PM INSPECTOR FIBROUS WALLBOARD [place] AN PROCEDURE PLACEHOLDER Routine 10/23/2023 2:45 PM INSPECTOR FIBROUS WALLBOARD IL AN PROCEDURE PLACEHOLDER Routine 10/23/2023 2:43 PM INSPECTOR FIBROUS WALLBOARD documented in this encounter Results * Airway (10/23/2023 5:18 PM INSPECTOR FIBROUS WALLBOARD) Narrative Alice Vaughn MD - 10/23/2023 5:18 PM INSPECTOR FIBROUS WALLBOARD Alice Vaughn MD ? 10/23/2023 ??5:18 PM Airway Patient location: OR Urgency: elective Indications for airway management: anesthesia Difficult airway: no Staff: Supervising provider: Ann Salazar MD Placed by: Resident: Alice Vaughn MD Emergent airway documentation: Risks and benefits [...] placement: video laryngoscopy Devices/Methods used in placement: intubating stylet Insertion site: oral Blade type: Bennett Video blade type: Jimenez Blade size: 4 Cormack-Lehane (video): grade I - full view of glottis ETT to lips: 24 cm Placement verified by: auscultation and CO2 detection Airway secured with: silk tape Number of attempts: 1 us Ann Salazar MD ANESTHESIA ORDERABLES Final Resu lt * IL AN PROCEDURE PLACEHOLDER (10/23/2023 2:45 PM INSPECTOR FIBROUS WALLBOARD) Narrative Kendrick Partida MD - 10/23/2023 2:45 PM INSPECTOR FIBROUS WALLBOARD Louis Myers MD ? 10/23/2023 ??2:46 PM Peripheral Block Patient location during procedure: pre-op holding Reason for block: post-op pain management per surgeon request Ultrasound image in chart or stored: yes Block type: single shot Laterality: right Block type: erector spinae plane block Staff: Supervising provider: Kendrick Partida MD Placed by: Fellow: Louis Myers MD Procedure prep: Preprocedure checklist: patient identified, procedure contraindications assessed, site marked, procedure consent, surgical consent, IV checked, risks, benefits and alternatives discussed, monitors and equipment checked and timeout performed Patient position: sitting and head of bed elevated Procedure performed while patient: sedate with meaningful contact Monitoring: oximetry Supplemental O2: nasal cannula Prep solution: chlorhexidine/alcohol Skin infiltrated with lidocaine 1%: yes Peripheral nerve block: Technique: ultrasound guided Needle type: short-bevel and echogenic Needle gauge: 21 G Needle length: 80 mm Injection assessment: injection made incrementally with constant monitoring, local visualized surrounding nerve on ultrasound, negative aspiration for heme, no paresthesias noted, normal resistance to injection and see flowsheet for medication details Assessment: Block success: full evaluation pending Events: patient tolerated procedure well with no complications Louis Myers MD ANESTHESIA ORDERABLES Final Resu lt * [place] 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 10/24/2023 10:17 AM Peripheral Block Patient location during procedure: pre-op holding Reason for block: post-op pain management per surgeon request Ultrasound image in chart or stored: yes Block type: single shot Laterality: left Block type: erector spinae plane block Staff: Supervising provider: Kendrick Partida MD Placed by: Fellow: Louis Myers MD Procedure prep: Preprocedure checklist: patient identified, procedure contraindications assessed, site marked, procedure consent, surgical consent, IV checked, risks, benefits and alternatives discussed, monitors and equipment checked and timeout performed Patient position: sitting and head of bed elevated Procedure performed while patient: sedate with meaningful contact Monitoring: oximetry Supplemental O2: nasal cannula Prep solution: chlorhexidine/alcohol Skin infiltrated with lidocaine 1%: yes Peripheral nerve block: Technique: ultrasound guided Needle type: short-bevel and echogenic Needle gauge: 21 G Needle length: 80 mm Injection assessment: injection made incrementally with constant monitoring, local visualized surrounding nerve on ultrasound, negative aspiration for heme, no paresthesias noted, normal resistance to injection and see flowsheet for medication details Assessment: Block success: full evaluation pending Events: patient tolerated procedure well with no complications us Louis Myers MD ANESTHESIA ORDERABLES Final Resu lt documented in this encounter Visit Diagnoses Not on filedocumented in this encounter Administered Medications Inactive Administered Medications - up to 3 most recent administrations Medication Order MAR Action Action Date Dose Rate Site BUPivacaine (MARCAINE) 0.25 % (2.5 mg/mL) preservative free injection perineural, As needed, Starting on Sun10/23/23 at 1406, Anesthesia Intra-op Given 10/23/2023 2:07 PM [employer] 20 mL Given 10/23/2023 2:06 PM INSPECTOR [employer] 20 mL ceFAZolin (ANCEF) 2,000 mg/20 mL in sterile water (premix) 2,000 mg 2,000 mg, intravenous, at 400 mL/hr, Administer over 3 Minutes, Once, On Sun10/23/23 at 1300, For 1 dose, Pre-Op, Administer within 60 minutes of incision., Indications: Prophylaxis, SurgicalIndications:Prophylaxis, Surgical Given 10/23/2023 8:50 PM INSPECT[employer] 2,000 mg Given 10/23/2023 4:50 PM INSPECTOR [employer] 2,000 mg dexmedeTOMIDine (PRECEDEX) 80 mcg/20 mL (4 mcg/mL) in sodium chloride 0.9% (premix) intravenous, As needed, Starting on Sun10/23/23 at 1725, Anesthesia Intra-op Given 10/23/2023 5:30 PM INS[employer]OR [employer] 8 mcg Given 10/23/2023 5:25 PM INSPECTOR [employer] 8 mcg fentaNYL (SUBLIMAZE) preservative free injection intravenous, As needed, Starting on Sun10/23/23 at 1402, Anesthesia Intra-op Given 10/23/2023 9:00 PM [employer] 100 mc g Given 10/23/2023 8:50 PM INSPECTOR [employer] 100 mcg Given 10/23/2023 2:02 PM INSPECTOR [employer] 100 mcg Lactated Ringer's (LR) infusion 75 mL/hr, intravenous, Continuous, Starting on Sun10/23/23 at 1430, Phase I & Post-op Floor New Bag 10/23/2023 7:32 PM CS T New Bag 10/23/2023 4:26 PM [employer] lidocaine (cardiac) (XYLOCAINE) preservative free injection intravenous, As needed, Starting on Sun10/23/23 at 1629, Anesthesia Intra-op, Indications: Ventricular ArrhythmiasIndications:Ve ntricular Arrhythmias Given 10/23/2023 4:29 PM [employer] 100 mg methadone injection syringe intravenous, As needed, Starting on Sun10/23/23 at 1629, Anesthesia Intra-op Given 10/23/2023 4:29 PM [employer] 10 mg midazolam (VERSED) 2 mg/2 mL preservative free injection intravenous, Administer over 2 Minutes, As needed, Starting on Sun10/23/23 at 1402, Anesthesia Intra-op Given 10/23/2023 2:02 PM [employer] 1 mg ondansetron (ZOFRAN) injection intravenous, Administer over 2 Minutes, As needed, Starting on Sun10/23/23 at 2050, Anesthesia Intra-op Given 10/23/2023 8:50 PM [employer] 4 mg propofoL (DIPRIVAN) 10 mg/mL IV intravenous, Continuous PRN, Starting on Sun10/23/23 at 1629, Anesthesia Intra-op Rate/Dose Change 10/23/2023 8:17 PM [employer] 70 mcg/kg/min 37.506 mL/hr Rate/Dose Change 10/23/2023 8:10 PM [employer] 80 mcg/kg/min 42.8 64 mL/hr Rate/Dose Change 10/23/2023 6:53 PM [employer] 95 mcg/kg/min 50.9 01 mL/hr propofoL (DIPRIVAN) 10 mg/mL IV intravenous, As needed, Starting on Sun10/23/23 at 1629, Anesthesia Intra-op Bolus 10/23/2023 9:00 PM [employer] 20 mg Bolus 10/23/2023 8:50 PM INS[employer] 20 mg Bolus 10/23/2023 8:48 PM [employer] 20 mg rocuronium (ZEMURON) injection intravenous, As needed, Starting on Sun10/23/23 at 1629, Anesthesia Intra-op Given 10/23/2023 4:29 PM [employer] 10 mg succinylcholine (ANECTINE) injection intravenous, As needed, Starting on Sun10/23/23 at 1629, Anesthesia Intra-op Given 10/23/2023 4:29 PM [employer] 80 mg tranexamic acid (CYKLOKAPRON) 1,000 mg/100 mL (10 mg/mL) in sodium chloride (premix) intravenous, Administer over 15 Minutes, As needed, Starting on Sun10/23/23 at 1705, Anesthesia Intra-op Rate/Dose Change 10/23/2023 7:30 PM [employer] 5 mg/kg/hr 44.65 mL/hr New Bag 10/23/2023 5:10 PM [employer] 3 mg/kg/hr 26.79 mL/hr Given 10/23/2023 5:05 PM [employer] 1,000 mg vancomycin 1500 mg/515 mL in sodium chloride 0.9% (premix) 1,500 mg 1,500 mg, intravenous, Administer over 90 Minutes, Once, On Tu10/23/23 at 1300, For 1 dose, Pre-Op, Administer within 120 minutes of incision., Indications: Prophylaxis, SurgicalIndications:Prophylaxis, Surgical Given 10/23/2023 4:31 PM [employer] 1,500 mg documented in this encounter Care Teams Tipple Repairer Relationship Specialty Start Date End Date Rl Medina DO [address] [place] [address] PCP - General 08/09/17 05/25/24 documented as of this encounter
--- OUTSIDE RECORDS SUMMARY | 2024-11-05 19:25 | XMS_ITS | Encounter Summary ---
Author Organization [facility] Healthcare Address [address] [place] [address] Care Team Providers Care Tire Room Supervisor Name Role Phone Rl Medina DO Primary Care Provider [phone] Reason for Visit * Reason Comments Urinary Problem * Auth/Cert Specialty Diagnoses / Procedures Referred By Contac t Referred To Contact Diagnoses Ureteral colic Procedures na Referral ID Status Reason Start Date Expiration Date Visits Re quested Visits Authorized [id number] 1 1 Encounter Details Date Type Department Care Team (Late st Contact Info) Description 10/23/2023 1:30 PM GROCERY BAGGER - 10/23/2023 8:10 PM GROCERY BAGGER Surgery [facility] Operating Room [address] [place] [address] Hayder Vu Jr., MD [address] [facility] 6A[address]6B[address] [place] [address] FUSION SPINAL - POSTERIOR LUMBAR/THORACIC WITH INSTRUMENTATION: L4-5 open posterior spinal fusion with instrumentation, L4-5 transforaminal lumbar interbody fusion, L4-5 laminectomy and direct decompression, spinal cord monitoring, autograft, allograft Surgery Details Date/Time Status Location OR Service Patient Class Case Class Case Type Trauma Case? 10/23/2023 1:30 PM Posted [facility] OR POD 5 234 Orthopaedics Inpatient Elective Panel 1 Procedure LRB Anes Op Region Wound Class Comments FUSION SPINAL - POSTERIOR LUMBAR/THORACIC WITH INSTRUMENTATION: L4-5 open posterior spinal fusion with instrumentation, L4-5 transforaminal lumbar interbody fusion, L4-5 laminectomy and direct decompression, spinal cord monitoring, autograft, allograft N/A General Spine Lumbar Class I - Clean LAMINECTOMY LUMBAR - POSTERIOR N/A General Spine Lumbar Class I - Clean SPINAL CORD MONITORING N/A General Cl ass II - Clean Contaminated Surgeon Surgeon Role Service Panel Hayder Vu Jr., MD Primary Orthopaedic s 1 Nasir Manzanares MD Resident - Assisting Ortho paedics 1 Case Notes 10/22: Cell Saver Audit, case msg to [place] - 0905/No Special Needs OSI- 6 post, c-arm, SCM, prone view pillow, autograft, allograft (30cc cancellous chips), Globus Creo PSI, Globus Altera, Globus Sable documented in this encounter Social History Tobacco Use Types Packs/Day Years Used Date Smoking Tobacco: Former Cigarettes 1 11 0 11/05/1968 - 11/05/1979 Passive Smoke Exposure: Past Smokeless Tobacco: Never Alcohol Use Standard Drinks/Week Comments Yes 14 (1 standard drink = 0.6 oz pu re alcohol) social C Utilities Answer Date Recorded In the past 12 months has [employer], gas, oil, or water [employer] threatened to shut off services in your home? No 10/24/2023 Social Connection and Isolat ion Panel [NHANES] Answer Date Recorded In a typical week, how many times do you talk on the phone with family, friends, or neighbors? More than three times a week 10/24/2023 How often do you get togethe r with friends or relatives? More than three times a week 10/24/2023 How often do you attend [facility] or jew services? Never 10/24/2023 Do you belong to any clubs o r organizations such as pentecostalism groups, unions, fraternal or athletic groups, or school groups? No 10/24/2023 How often do you attend meet ings of the clubs or organizations you belong to? Never 10/24/2023 Are you , , di vorced, , never , or living with a partner? 10/24/2023 AUDIT-C Answer Date Recorded Q1: How often [...] care, and heating? Not hard at all 10/24/2023 Hunger Vital Sign Answer Date Recorded Within the past 12 months, y ou worried that your food would run out before you got the money to buy more. Never true 10/24/20 23 Within the past 12 months, t he food you bought just didn't last and you didn't have money to get more. Never true 10/24/2023 PRAPARE - Transportation Answer Date Re corded In the past 12 months, has l ack of transportation kept you from medical appointments or from getting medications? No 10/06 In the past 12 months, has l ack of transportation kept you from meetings, work, or from getting things needed for daily living? No 10/24/2023 Housing Stability Vital Sign Answer Shalom e Recorded In the last 12 months, was t here a time when you were not able to pay the mortgage or rent on time? No 10/24/2023 In the last 12 months, how many places have you lived? 1 10/24/2023 In the last 12 months, was t here a time when you did not have a steady place to sleep or slept in a group home (including now)? 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 Not on file Not on file Not on file documented as of this encounter Last Filed Vital Signs Vital Sign Reading Time Taken Comments Blood Pressure 135/73 10/23/2023 3:00 PM GROCERY BAGGER Pulse 60 10/23/2023 3:00 PM GROCERY BAGGER Temperature 36.8 ??C (98.2 ??F) 10/23/2023 7:36 AM CS T Respiratory Rate 19 10/23/2023 3:00 PM GROCERY BAGGER Oxygen Saturation 94% 10/23/2023 3:00 PM GROCERY BAGGER Inhaled Oxygen Concentration - - Weight 89.3 kg (196 lb 13.9 oz) 10/21/2023 4:00 AM GROCERY BAGGER Height 172.7 cm (5' 8 ) 10/13/2023 4:15 AM GROCERY BAGGER Body Mass Index 29.7 10/13/2023 4:15 AM GROCERY BAGGER documented in this encounter Discharge Summaries * Rafael Rodriguez, DRAWER IN DOBBY LOOM - 10/30/2023 1:19 PM CST Images from the original note were not included. Spine Inpatient Discharge Summary Admitting Provider: Hayder Vu MD Discharge Provider: Hayder Vu Fo* Primary Care Physician at Discharge: Rl Medina DO [phone] Admission Date: 10/12/2023 Discharge Date: 10/30/2023 Primary [...] Pending Labs Order Current Status Magnesium Collected (10/29/23 05) Magnesium Collected (10/30/23 0453) Phosphorus Collected (10/29/23 05) Phosphorus Collected (10/30/23 0453) Basic metabolic panel In process CRP (acute [...] URO BW MOB4 JORDAN 12/24/2023 2:20 PM [facility] BCT3 BJ N CT [facility] Main IMG 12/24/2023 3:30 PM Carrie Jerez, CARLA SPINE BWMOB4 NS Chem/LFT Lab History Latest [...] 1 tablet (10 mg total) by mouth supervisor tank house before breakfast For: inflammation of the nose due to an allergy Commonly known as: ZyrTEC cholecalciferol 5,000 unit capsule Take 1 capsule (5,000 Units total) by mouth every morning For: low vitamin D levels Commonly known as: VITAMIN D-3 coenzyme Q10 100 mg capsule Take 1 capsule (100 mg total) by mouth supervisor tank house before breakfast cyclobenzaprine 5 mg tablet Take [...] mg capsule Take 1 tablet by mouth supervisor tank house before breakfast For: Supplement gabapentin 300 mg [...] says it's OK. *Do not do any boat dock operator that cause you to twist, push [...] to previous diet Contact Information for Follow-ups [facility] (All Locations) Next Steps: Follow up Comments: Please schedule patient for follow up appointment. Section: Epilepsy Provider: First available Time Frame: First available Schedule with Transition of Care Clinic: No Questions: Please select the performing region: [facility] (All Locations) # of visits: 1 Referral Status: Pending Coordinator Review [facility] Home Care Services Specialty: Home Health and Hospice [address] [facility] [address] Next Steps: Follow up Questions: Service Line: [...] waterproof dressing while showering. Discharge Wound Type: Stitches/Annika -Stitches/annika will be removed at your next [...] Hayder Vu MD at 10/31/2023 3:37 PM GROCERY BAGGER ERY BAGGER ERY BAGGER ERY BAGGER documented in this encounter Discharge Instructions * Discharge Instructions* Rafael Rodriguez NP - 10/30/2023 10:21 AM GROCERY BAGGER Thoracic/Lumbar Spinal Fusion Post-Operative Instructions Questions: ?? For any post-operative questions, please contact Dr. Horace Mojica???s nurse, at [phone] via [employer]. Galina will view and respond to your [employer] questions sent to Dr. Vu. Wound Care: ?? Please keep your initial surgical dressing (Mepilex + Ioban OR dermabond or Steri-Srips w/ tegaderm & ioban) intact until your postoperative clinic appointment two weeks after surgery. ?? Please contact [place] for further directions, if needed, regarding additional [...] you upon discharge. Please call Galina at [phone] if unable to keep appointment. Nov 09, 2023 11:[address] Rl Medina Post-hospitalization appointment Nov 12, 2023 9:20 AM New with Hayder Vu MD [facility] Orthopaedic Surgery ( ORTHOPEDIC SURGERY) [address] [place] [address] 6th Floor [address] [facility] [id number] Dec 03, 2023 1:20 PM Return with Hayder Vu MD [facility] Orthopaedic Surgery ( ORTHOPEDIC SURGERY) [address] [facility] [address] [facility] [address] Dec 13, 2023 1:20 PM Return with Pan Irene MD [facility] Urology (WOOD SURGERY) [address] [facility] [address] [facility] [address] CALL [facility] NEUROLOGY FOR FOLLOW UP APPT WITH THE [facility] EPILEPSY DEPARTMENT [phone] Emergencies: SIGNS OF AN EMERGENT SITUATION INCLUDE-If [...] it is best that you return to [facility] for your emergent care. Please call the emergency exchange at [phone] or toll free any time of the day or night on the daysthe office is closed, so that the emergent care can be initiated for you. Please follow these instructions for emergency calls: -During business hours (Sunday through Sunday 8am-4:30 PM except for holidays), call [phone]. The clutch operator will connect you with Dr. Vu???s nurse. Dr. Vu???s nurse reports all emergencies to Dr. Vu. -After business hours (after 4:30 PM and before 8:00am) you may call the Emergency Orthopaedic Exchange at [phone] or TOLL [phone]. The clutch operator collection officer will contact Dr. Echeverria???s staff. IMPORTANT: Refills of medications need to be done during business hours-NO pain medication refills will be given over the phone after hours. Please call with any questions or concerns. We will be glad to assist you in any way during your recovery period. Dr. Vu???s Staff Galina Franco RN: [phone] ERY BAGGER ERY BAGGER ERY BAGGER ERY BAGGER ERY BAGGER ERY BAGGER documented in this encounter Medications at Time [...] 1 tablet (10 mg total) by mouth supervisor tank house before breakfast 4 cholecalciferol (VITAMIN D-3) 5,000 unit capsuleIndication s:Vitamin D Deficiency Take 1 capsule (5,000 Units total) by mouth every morning 4 coenzyme Q10 100 mg capsule Take 1 capsule (100 mg total) by mouth supervisor tank house before breakfast 4 cyclobenzaprine (FLEXERIL) 5 mg [...] capsuleIndication s:Supplement Take 1 tablet by mouth supervisor tank house before breakfast 4 gabapentin (NEURONTIN) 300 mg [...] Patient choice (Home Health/Hospice) list given to patient/wine sales representative? Not Applicable [facility] Facility list given to patient/wine sales representative? Not Applicable IM letter completed with patient at bedside. Patient informed of the planned discharge date, the date the beneficiary's financial liability begins, the beneficiary's appeal rights, and how and when to initiate an appeal. Patient provided copy of IM letter, IM letter placed in unit's designated medical record bin to be uploaded into patient's chart. CLAIRE Villagomez, RN ERY BAGGER * Nathalie Herrera RN - 10/30/2023 9:08 AM CST 10/30/23 0908 Communications Important Message from Medicare notice given to patient? Not Applicable [facility] letter given? Not Applicable Patient choice (Home Health/Hospice) list given to patient/wine sales representative? Yes [facility] Facility list given to patient/wine sales representative? Not Applicable Fiduciary Responsibility Patient/Designated decision maker was informed of [facility] fiduciary relationship as necessary Foreign Collection Clerk noted patient has been recommended for home heatlh by PT/OT. Foreign Collection Clerk met with thepatient at bedside to discuss recommendations by therapy and to work on a potential discharge disposition plan. Foreign Collection Clerk provided education to patient on therapy recommendations and home health services. Patient reported being interested in home health. manufacturing area manager provided a home health list to patient. Patient selected the following choices (preference order): [facility]idential ([facility] Home Health [facility] Home Health manufacturing area manager sent out referrals via [employer]. CM awaiting acceptance from a home health agency and willcontinue to work on discharge planning with patient and family. Patient states he has own wheeled walker. CLAIRE Villagomez, RN ERY BAGGER * Nathalie Champagne PT - 10/30/2023 7:32 AM CST Physical [...] treatment team and contact the PT or LABOR AND DELIVERY NURSE currently assigned to this patient. If a physical therapy clinician is not assigned to this patient, please call [phone]. 10/30/23 5210 PT Last Visit Session Type Treatment (and [...] SPV via logroll - ADEQUATE FOR DISCHARGE ERY BAGGER * Nasir Manzanares MD - 10/30/2023 6:38 [...] BP pends, Dispo pending home with setup guy today Objective Vitals: 24hr Min/Max: Temp Min: [...] WWP Lab/Diagnostic Review: Recent Labs Lab Units 10/29/23215210/26/23200610/26/23 1728 10/23/23 2303 10/23/23 2302 SODIUM mmol/L [...] For susceptibility results, refer to accession number [id number] on the urine culture from 10/11/23 MICROBIOLOGY [...] Manzanares M.D. Department of Orthopaedic Surgery, PGY-3 [facility] in [place]/[facility] Please use [employer] to page/call the appropriate Orthopaedic Surgery Team/Resident if questions or concerns Please call with questions during daytime. See below for overnight issues. If you know the resident's name on the appropriate orthopaedic surgery team, please use [employer] to page resident directly. If questions arise and the appropriate resident can't be reached or you are calling overnight, please contact [phone] ([place]- 7:30 PM - 6:30 AM - Floor Resident) or [phone] (24 hours/day - Consult Resident) Cosigned by Hayder Vu MD at 11/06/2023 6:43 PM GROCERY BAGGER ERY BAGGER ERY BAGGER * Nasir Manzanares MD - 10/29/2023 1:32 PM CST Brief Ortho Progress Note: I did not personally visualize the drain tip after it was inadvertantly removed last night. However, per report from coke worker, the drain tip looked good and entire drain was removed. Nasir Manzanares MD Orthopaedic Surgery PGY2 ERY BAGGER ERY BAGGER * Artie Real MD PhD - 10/29/2023 [...] water 2,000 mg 2,000 mg intravenous Q8H [facility] enoxaparin (LOVENOX) syringe 80 mg 1 mg/kg subcutaneous Q12H [facility] gabapentin (NEURONTIN) capsule 300 mg 300 mg oral Q8H [facility] levETIRAcetam (KEPPRA) tablet 1,000 mg 1,000 mg [...] mg intravenous Q2H PRN 0.5 mg at 10/26/23 183 ondansetron (ZOFRAN) injection 4 mg 4 mg [...] non-contrast head CT. Responsible Team Darrian Bone ([phone]) Artei Real ([phone]) Hira Segura (Chief) For any questions or concerns, please contact the nurse practitioner signed in to the chart. If youare unable to reach them, you may contact the residents as listed. If it is after 6pm or you are unable to reach the DRAWER IN DOBBY LOOM or resident team, please page the Neurosurgery Call Pager at [phone]. Note created by Artie Real MD PhD on 10/29/2023 at 7:20 AM. Cosigned by Gen Murray MD at 10/29/2023 4:52 PM GROCERY BAGGER ERY BAGGER ERY BAGGER * Nasir Manzanares MD - 10/29/2023 7:18 [...] For susceptibility results, refer to accession number [id number] on the urine culture from 10/11/23 MICROBIOLOGY [...] Manzanares M.D. Department of Orthopaedic Surgery, PGY-3 [facility] [place] Please use [employer] to page/call the appropriate Orthopaedic Surgery Team/Resident if questions or concerns Please call with questions during daytime. See below for overnight issues. If you know the resident's name on the appropriate orthopaedic surgery team, please use [employer] to page resident directly. If questions arise and the appropriate resident can't be reached or you are calling overnight, please contact [phone] ([place]- 7:30 PM - 6:30 AM - Floor Resident) or [phone] (24 hours/day - Consult Resident) Cosigned by Hayder Vu MD at 11/06/2023 6:43 PM GROCERY BAGGER ERY BAGGER ERY BAGGER * Shane Bowen, OT - 10/28/2023 11:09 AM CST Occupational [...] not assigned to this patient, please call [phone]. 10/28/23 1103 General Session Type Treatment OT Received On [...] OT OT - OK to Discharge No ERY BAGGER * Carey Hein, PT - 10/28/2023 10:00 AM CST Physical [...] treatment team and contact the PT or LABOR AND DELIVERY NURSE currently assigned to this patient. If a physical therapy clinician is not assigned to this patient, please call [phone]. 10/28/23 1000 PT Last Visit Session Type [...] 11/04/23 -- Goal Details: SPV with WW ERY BAGGER * Nasir Manzanares MD - 10/28/2023 8:32 [...] 10/27/23 2332 10/26/23200610/26/23 1728 10/23/23 2303 10/23/23 2302 SODIUM mmol/L 135 < > -- < [...] For susceptibility results, refer to accession number [id number] on the urine culture from 10/11/23 MICROBIOLOGY [...] Manzanares M.D. Department of Orthopaedic Surgery, PGY-3 [facility] Please use [employer] to page/call the appropriate Orthopaedic Surgery Team/Resident if questions or concerns Please call with questions during daytime. See below for overnight issues. If you know the resident's name on the appropriate orthopaedic surgery team, please use [employer] to page resident directly. If questions arise and the appropriate resident can't be reached or you are calling overnight, please contact [phone] ([facility] 7:30 PM - 6:30 AM - Floor Resident) or [phone] (24 hours/day - Consult Resident) Cosigned by Hayder Vu MD at 11/06/2023 6:43 PM GROCERY BAGGER ERY BAGGER ERY BAGGER * Shane Bowen OT - 10/27/2023 10:26 AM CST Occupational [...] not assigned to this patient, please call [phone]. 10/27/23 1026 General Session Type Treatment OT [...] task) LE Dressing: Equipment Utilized Sock aid;Dressing stick;Nutrition Therapist Toileting Toileting: Where assessed Toilet Toileting: Level [...] -- Reviewed By Ana Hampton RN 10/26/23 2732 Nathen Maharaj RN 10/24/23 1801 ERY BAGGER * Nasir Manzanares MD - 10/27/2023 8:02 [...] For susceptibility results, refer to accession number [id number] on the urine culture from 10/11/23 MICROBIOLOGY [...] Manzanares M.D. Department of Orthopaedic Surgery, PGY-3 [facility] [place] Please use [employer] to page/call the appropriate Orthopaedic Surgery Team/Resident if questions or concerns Please call with questions during daytime. See below for overnight issues. If you know the resident's name on the appropriate orthopaedic surgery team, please use [employer] to page resident directly. If questions arise and the appropriate resident can't be reached or you are calling overnight, please contact [phone] ([facility] 7:30 PM - 6:30 AM - Floor Resident) or [phone] (24 hours/day - Consult Resident) Cosigned by Hayder Vu MD at 11/06/2023 6:43 PM GROCERY BAGGER ERY BAGGER ERY BAGGER * Ana Hampton RN - 10/26/2023 5:44 PM CST Pt transferred to room [address] [place] [address] Face to face report given to annetta MACKEY. belongings transferred with pt. Heparin gtt to be d/c. Labs obtained prior to transfer. ERY BAGGER * Sharondarrion Luana, RD - 10/26/2023 3:07 PM CST Nutrition [...] Adult Diet Regular Diet effective now Question: ([facility]) Diet type Answer: Regular 10/25/23 0532 10/24/23 2100 Bedtime snack At bedtime Comments: If bedtime BG is less than 100mg/dl, give patient a 15 gram carbohydrate snack. 10/24/23 0353 Assessment / Impression: [place] screened [place] [address] [place]. Spoke to pt and at bedside. Reports pt was eating well LABOR AND DELIVERY NURSE, appetite reduced following his surgery but has [...] RD following. Joleen Singh, MS, RD, LD [facility] [phone] On-call/weekend: [phone] ERY BAGGER * Aston Tran PTA - 10/26/2023 2:05 PM CST 10/26/23 1405 PT Last Visit PT Missed Visit Reason Family declined;Other (comment) (Pt's has politely declined PT at this time citing increased pain and fatigue following prior OT session. Pt's requests that PT staff follow-up in AM.) Recommendation/Plan PT - Next Appointment 10/27/23 ERY BAGGER * Shane Bowen, OT - 10/26/2023 9:53 AM CST Occupational [...] not assigned to this patient, please call [phone]. 10/26/23 0953 General Session Type Treatment OT Received On [...] for task) LE Dressing: Equipment Utilized Sock aid;Nutrition Therapist;Dressing stick Toileting Toileting: Where assessed Chair Toileting: [...] -- Reviewed By Nathen Maharaj RN 10/24/231800 ERY BAGGER * Nasir Manzanares MD - 10/26/2023 7:08 [...] For susceptibility results, refer to accession number [id number] on the urine culture from 10/11/23 MICROBIOLOGY [...] then will be switched to island dressing aNsir Manzanares M.D. Department of Orthopaedic Surgery, PGY-3 [facility] [place] Please use [employer] to page/call the appropriate Orthopaedic Surgery Team/Resident if questions or concerns Please call with questions during daytime. See below for overnight issues. If you know the resident's name on the appropriate orthopaedic surgery team, please use [employer] to page resident directly. If questions arise and the appropriate resident can't be reached or you are calling overnight, please contact [phone] ([place]- 7:30 PM - 6:30 AM - Floor Resident) or [phone] (24 hours/day - Consult Resident) Cosigned by Hayder Vu MD at 10/26/2023 1:04 PM GROCERY BAGGER ERY BAGGER ERY BAGGER ERY BAGGER Associated attestation - Hayder Vu Jr., MD - 10/26/2023 1:04 PM GROCERY BAGGER Attending Attestation I have seen and examined [...] questions were answered. Hayder Vu Jr., MD Services Program Manager Department of Orthopaedic Surgery Division of Spine Surgery [facility] [employer] [place], [place] Breeding Manager done by [employer]; therefore, variances and inaccuracies may occur. * Tia Nolan NP - 10/25/2023 9:09 PM CSTAssociated Order(s): Critical Care Post-Procedure Diagnose(s): Cardiac arrest (HCC) Surgical ICU Daily Progress Team: Blue PM Subjective Patient is a 73 y.o. male admitted on 10/12/2023 6:25 PM with chief complaint of seizure and cardiac arrest post PSF Acute overnight events: Hgb downtrend recheck at 0600 HPI: 73yo male [id number] for complicated E. Coli UTI prior undergoing [...] been reviewed with attending, Dr. Adis Nolan, [facility] Critical Care Performed by: Tia Nolan NP [...] plan with the patient's team and other medical/regulatory services consultant staff. 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 Otherwise no c/f falls prior Prior Function Comments: Patient reports symptoms began in 07/2023; however, LABOR AND DELIVERY NURSE was IND with all I/ADLs and was [...] name and address after me: Hayder Reddy [address] [place] [address] Without looking at the clock, tell me [...] -- Reviewed By Nathen Maharaj RN 10/24/23 4580 For questions, please review the treatment team and contact the occupational therapist currently assigned to this patient. If an occupational therapist is not assigned to this patient, please call [phone]. ERY BAGGER * Alisa Nath, PT - 10/25/2023 8:30 [...] treatment team and contact the PT or LABOR AND DELIVERY NURSE currently assigned to this patient. If a physical therapy clinician is not assigned to this patient, please call [phone]. 10/25/23 0830 PT Last Visit Session Type [...] roll Reviewed By Nathen Maharaj RN 10/24/231800 ERY BAGGER * Nasir Manzanares MD - 10/25/2023 7:53 [...] 10/25/23 0314 10/24/23 1942 10/24/23 1906 10/23/23 23010/23/23 230 SODIUM mmol/L -- -- -- -- 136 [...] For susceptibility results, refer to accession number [id number] on the urine culture from 10/11/23 MICROBIOLOGY [...] Manzanares M.D. Department of Orthopaedic Surgery, PGY-3 [facility] in [place] [facility] Please use [email or web address] to page/call the appropriate Orthopaedic Surgery Team/Resident if questions or concerns Please call with questions during daytime. See below for overnight issues. If you know the resident's name on the appropriate orthopaedic surgery team, please use [email or web address] to page resident directly. If questions arise and the appropriate resident can't be reached or you are calling overnight, please contact [phone] ([place]- 7:30 PM - 6:30 AM - Floor Resident) or [phone] (24 hours/day - Consult Resident) Cosigned by Hayder Vu MD at 10/26/2023 12:58 PM GROCERY BAGGER ERY BAGGER ERY BAGGER * Luana Brady NP - 10/25/2023 7:04 [...] Avel Bourne MD at 10/26/2023 5:50 PM GROCERY BAGGER ERY BAGGER ERY BAGGER * Hayden Barton MD - 10/24/2023 6:26 [...] name Trop I hs Called/Read Back Edwige Romeroentials RN Called By SB ECG 12 lead Collection Time: 10/24/23 3:44 AM Result Value Ref Range Ventricular Rate EKG/Min 82 BPM Atrial Rate 82 BPM MO-Interval (MSEC) 166 ms QRS-Interval (MSEC) 78 ms QT-Interval (MSEC) 384 ms QTc 448 ms P [place] 34 degrees R [place] -30 degrees T [place] -13 degrees Diagnosis Normal sinus rhythm Left [...] Arceo Jr., MD at 10/25/2023 3:43 AM GROCERY BAGGER ERY BAGGER ERY BAGGER * Javad Sow, PT - 10/24/2023 12:03 PM CST Physical Therapy 10/24/23 1203 General PT Missed Visit Reason Family declined (request to allow patient to sleep) ERY BAGGER * Dari Dickens [facility] - 10/24/2023 10:51 AM CST Patient profile has been reviewed by clinical pharmacy technician program director on 10/24/2023. Case reviewed on rounds with [...] tablet 5 mg, 5 mg, oral, Q8H [facility], Onedya Foley NP Carrier Fluids for Secondary Infusion [...] (premix) 2,000 mg, 2,000 mg, intravenous, Q8H [facility], Yesica Smith NP, 2,000 mg at 10/24/23 0451 dextrose [...] capsule 300 mg, 300 mg, oral, Q8H [facility], Amos Langley NP glucagon injection 1 mg, [...] 0-10 Units, 0-10 Units, subcutaneous, Q4H [facility], Too Garcia MD, 2 Units at 10/24/23 0451 levETIRAcetam (KEPPRA) 1,000 mg/100 mL in sodium chloride (premix) 1,000 mg, 1,000 mg, intravenous,Q12H [facility], Chichi Reyes MD, 1,000 mg at 10/24/23 0936 [Held by Provider] multivit csyorgri-mkqf-XG-calcium (THERA-M) tablet 1 tablet, 1 tablet, oral, [...] 2 tablet, 2 tablet, oral, BID, Rob Langley NP sodium chloride 0.9% flush 0.5-20 mL, 0.5-20 mL, intra-catheter, Q8H Alaina CHAWLA Anna, NP, 10 mL at 10/24/23 0500 sodium [...] intravenous, Q12H, Oneyda Foley NP Gabrielle Gibson, RP, PharmD, BCPS, BCCCP ERY BAGGER * Rob Langley NP - 10/24/2023 6:48 AM CSTAssociated Order(s): Critical Care Post-Procedure Diagnose(s): Cardiac arrest (HCC) Surgical ICU Daily Progress Team: Fredy Erickson Hira Evans is a 73 y.o. male [...] EKG/Min 82 BPM Atrial Rate 82 BPM MO-Interval (MSEC) 166 ms QRS-Interval (MSEC) 78 ms QT-Interval (MSEC) 384 ms QTc 448 ms P [place] 34 degrees R [place] -30 degrees T [place] -13 degrees Diagnosis Normal sinus rhythm Left [...] plan with the ICU team and other medical/regulatory services consultant staff, making frequent assessments and decisions [...] Avel Bourne MD at 10/24/2023 6:17 PM GROCERY BAGGER ERY BAGGER ERY BAGGER ERY BAGGER * Ata Marquez MD - 10/24/2023 5:56 [...] Edited by: Oneyda Foley NP at 10/23/2023 1736 Objective Vitals: 24hr Min/Max: Temp Min: 36.5 [...] 5/5 5/5 Wrist flexion (C7) 4/5 5/5 Solvent Process Extractor Operator (C8) 4/5 5/5 Interosseous of hand (T1) [...] Labs Lab Units 10/24/23 0325 10/24/23 0020 10/23/23230210/23/23 23010/23/232301 SODIUM mmol/L -- -- -- -- 137 [...] For susceptibility results, refer to accession number [id number] on the urine culture from 10/11/23 MICROBIOLOGY [...] Marquez M.D. Department of Orthopaedic Surgery, PGY-3 [facility] in [place] Please use [employer] to page/call the appropriate Orthopaedic Surgery Team/Resident if questions or concerns Please call with questions during daytime. See below for overnight issues. If you know the resident's name on the appropriate orthopaedic surgery team, please use [employer] to page resident directly. If questions arise and the appropriate resident can't be reached or you are calling overnight, please contact [phone] ([facility] 7:30 PM - 6:30 AM - Floor Resident) or [phone] (24 hours/day - Consult Resident) Cosigned by Hayder Vu MD at 10/24/2023 1:48 PM GROCERY BAGGER ERY BAGGER ERY BAGGER Associated attestation - Hayder Vu Jr., MD - 10/24/2023 1:48 PM GROCERY BAGGER Attending Attestation I have seen and examined [...] questions or concerns. Hayder Vu Jr., MD Services Program Manager Department of Orthopaedic Surgery Division of Spine Surgery [facility] [place], [place] Breeding Manager done by [employer]; therefore, variances and [...] oral, BID ceFAZolin, 2,000 mg, intravenous, Once [MAR Hold] cephalexin, 500 mg, oral, QID [Jan] dilTIAZem XR, 240 mg, oral, BID methadone, 15 mg, intravenous, Once [Jan] pantoprazole DR, 40 mg, oral, Daily [Jan] polyethylene glycol, 17 g, oral, Daily [Jan] sodium chloride 0.9%, 0.5-20 mL, intra-catheter, Q8H [facility] [Jan] sodium chloride 0.9%, 0.5-20 mL, intra-catheter, Q8H [facility] [Jan] tamsulosin, 0.8 mg, oral, Daily with dinner vancomycin, 1,500 mg, intravenous, Once [Jan] acetaminophen, 650 mg, oral, Q4H PRN [Jan] sodium chloride 0.9%, 30 mL, intravenous, PRN [Jan] sodium chloride 0.9%, 30 mL, intravenous, PRN [Jan] HYDROmorphone, 0.2 mg, intravenous, Q4H PRN [Jan] hydrOXYzine, 25 mg, oral, BID PRN Lactated Ringer's, , , [Jan] ondansetron ODT, 4 mg, oral, Q6H PRN OR [Jan] ondansetron, 4 mg, intravenous, Q6H PRN [Jan] [...] of spine with ortho. Pipe Moseley MD ERY BAGGER * Luciana Dickerson, PT - 10/23/2023 8:28 AM CST Physical Therapy 10/23/23 3856 General PT Missed Visit Reason Other (comment) (Per medical chart, pending OR today with ortho spine. Will follow up once post-op) ERY BAGGER * Nasir Manzanares MD - 10/23/2023 6:14 [...] [facility] Lab/Diagnostic Review: Recent Labs Lab Units 10/22/23213810/18/23212810/17/232251 SODIUM mmol/L 134* < > 133* POTASSIUM [...] For susceptibility results, refer to accession number [id number] on the urine culture from 10/11/23 MICROBIOLOGY [...] the appropriate orthopaedic surgery team, please use [email or web address] to page resident directly. If questions arise and the appropriate resident can't be reached or you are calling overnight, please contact [phone] ([place]- 7:30 PM - 6:30 AM - Floor Resident) or [phone] (24 hours/day - Consult Resident) Cosigned by Hayder Vu MD at 10/23/2023 4:10 PM GROCERY BAGGER ERY BAGGER ERY BAGGER Associated attestation - Hayder Vu Jr., MD - 10/23/2023 4:10 PM GROCERY BAGGER Attending Attestation I have seen and examined [...] tibialis anterior, EHL. Hayder Vu Jr., MD Services Program Manager Department of Orthopaedic Surgery Division of Spine Surgery [facility] [place], [place] Breeding Manager done by [employer]; therefore, variances and inaccuracies may occur. * Jimenez Henao MD - 10/22/2023 3:29 PM CST Daily Progress Note Division of [facility] Medicine Name: Hira Evans : 1950 Today's Date: October 22, 2023 Age: 73 y.o. male Admission: 10/12/2023 Bed: [id number] LOS: 9 days Subjective Chief complaint: back [...] 33 minutes which was spent performing a khkb-ns-bxre encounter and personally completing the provider-level activities documented in the note. This includes time spent prior to the visit and after the visit in direct care of the patient. This time does not include time spent in any separately reportable services. Jimenez Henao MD ERY BAGGER * Zehra Cook MD - 10/22/2023 6:43 [...] upcoming Tuesday 10/23. Please make NPO at ND, hold DVT prophylaxis. Edited by: Zehra Cook MD at 10/22/2023 0643 Objective Vitals: 24hr Min/Max: Temp Min: 36.1 [...] For susceptibility results, refer to accession number [id number] on the urine culture from 10/11/23 MICROBIOLOGY [...] Edited by: Zehra Cook MD at 10/22/2023 6842 Please call with questions during daytime. See below for overnight issues. If you know the resident's name on the appropriate orthopaedic surgery team, please use [email or web address] to page resident directly. If questions arise and the appropriate resident can't be reached or you are calling overnight, please contact [phone] ([place]- 7:30 PM - 6:30 AM - Floor Resident) or [phone] (24 hours/day - Consult Resident) Cosigned by Hayder Vu MD at 10/23/2023 7:36 AM GROCERY BAGGER ERY BAGGER ERY BAGGER * Jimenez Henao MD - 10/21/2023 10:51 AM CST Daily Progress Note Division of Hospital Medicine Name: Hira Evans : 1950 Today's Date: October 21, 2023 Age: 73 y.o. male Admission: 10/12/2023 Bed: [id number] LOS: 8 days Subjective Chief complaint: back [...] 28 minutes which was spent performing a qpan-wt-xkxl encounter and personally completing the provider-level activities documented in the note. This includes time spent prior to the visit and after the visit in direct care of the patient. This time does not include time spent in any separately reportable services. Jimenez Henao MD ERY BAGGER * Jimenez Henao MD - 10/20/2023 2:55 PM CST Daily Progress Note Division of Hospital Medicine Name: Hira Evans : 1950 Today's Date: October 20, 2023 Age: 73 y.o. male Admission: 10/12/2023 Bed: [id number] LOS: 7 days Subjective Chief complaint: back [...] 28 minutes which was spent performing a ppuv-un-ewib encounter and personally completing the provider-level activities documented in the note. This includes time spent prior to the visit and after the visit in direct care of the patient. This time does not include time spent in any separately reportable services. Jimenez Henao MD ERY BAGGER * Belen Hennessy PA - 10/19/2023 1:59 [...] sign off, no further IR care needed. BONITA Prince-Maddie Interventional Radiology Available via [employer] M-F 7 AM until 3 PM IR call pager M-F after 3 PM or on weekends If the patient does not already have a follow-up appointment arranged, please place order and then please call the [employer] front office java developer at between 7:30 AM and 4:00 PM. ERY BAGGER * Jimenez Henao MD - 10/19/2023 12:50 PM CST Daily Progress Note Division of Hospital Medicine Name: Hira Evans : 1950 Today's Date: October 19, 2023 Age: 73 y.o. male Admission: 10/12/2023 Bed: [id number] LOS: 6 days Subjective Chief complaint: back [...] 50 minutes which was spent performing a dmsh-bc-szim encounter and personally completing the provider-level activities documented in the note. This includes time spent prior to the visit and after the visit in direct care of the patient. This time does not include time spent in any separately reportable services. Jimenez Henao MD ERY BAGGER * Jimenez Henao MD - 10/18/2023 5:15 PM CST Daily Progress Note Division of Hospital Medicine Name: Hira Evans : 1950 Today's Date: October 18, 2023 Age: 73 y.o. male Admission: 10/12/2023 Bed: [id number] LOS: 5 days Subjective Chief complaint: back [...] 55 minutes which was spent performing a ygab-hj-hmli encounter and personally completing the provider-level activities documented in the note. This includes time spent prior to the visit and after the visit in direct care of the patient. This time does not include time spent in any separately reportable services. Jimenez Henao MD ERY BAGGER * Osorio Calle MD - 10/18/2023 6:54 AM CST Orthopaedic Spine Service Daily Progress Note Admit Date: 10/12/2023 Hospital Day: 5 Clohisy/Logan Dx: L4-L5 radiculopathy, UTI Relevant PMHx: [...] For susceptibility results, refer to accession number [id number] on the urine culture from 10/11/23 MICROBIOLOGY [...] the appropriate orthopaedic surgery team, please use [email or web address] to page resident directly. If questions arise and the appropriate resident can't be reached or you are calling overnight, please contact [phone] ([facility] 7:30 PM - 6:30 AM - Floor Resident) or [phone] (24 hours/day - Consult Resident) Cosigned by Hayder Vu MD at 10/18/2023 12:31 PM GROCERY BAGGER ERY BAGGER ERY BAGGER * Michelle Harris PA - 10/17/2023 3:10 [...] 10 ml NS TID and record in [employer]. - Appreciate nursing care. Continue daily dressing changes and as needed, if soiled or dislodged. Monitor skin site. - IR to continue to follow. Michelle Harris PA-C Interventional Radiology Available via [employer] Chat M-F 7 AM until 3 PM. IR call pager M-F after 3 PM or on weekends. If the patient does not already have a follow-up appointment arranged, please place order and then please call the [employer] front office java developer at between 7:30 AM and 4:00 PM. ERY BAGGER * Jimenez Henao MD - 10/17/2023 2:46 PM CST Daily Progress Note Division of Hospital Medicine Name: Hira Carlos Manuel Finneganjacinda : 1950 Today's Date: October 17, 2023 Age: 73 y.o. male Admission: 10/12/2023 Bed: [id number] LOS: 4 days Subjective Chief complaint: back pain Interval History VSS. PHOEBEO. States he is feeling OK though rather [...] 60 minutes which was spent performing a zinm-qp-adnx encounter and personally completing the provider-level activities documented in the note. This includes time spent prior to the visit and after the visit in direct care of the patient. This time does not include time spent in any separately reportable services. Jimenez Henao MD ERY BAGGER * Luciana Dickerson, PT - 10/17/2023 2:21 [...] POC Prior Function Prior Function Level of [place]: Independent functional transfers, Independent with ambulation Lives With: Spouse Receives Help From: Spouse/Significant other (paper rewinder assist as needed) Fall within the last [...] with all mobility to allow return to [facility] ERY BAGGER * Hayden Youngblood MD - 10/17/2023 8:30 [...] For susceptibility results, refer to accession number [id number] on the urine culture from 10/11/23 MICROBIOLOGY [...] the appropriate orthopaedic surgery team, please use [email or web address] to page resident directly. If questions arise and the appropriate resident can't be reached or you are calling overnight, please contact [phone] ([facility] 7:30 PM - 6:30 AM - Floor Resident) or [phone] (24 hours/day - Consult Resident) Cosigned by Hayder Vu MD at 10/17/2023 8:47 AM GROCERY BAGGER ERY BAGGER ERY BAGGER * Hayder Vu MD - 10/17/2023 7:19 [...] questions or concerns. Hayder Vu Jr., MD Services Program Manager Department of Orthopaedic Surgery Division of Spine Surgery [facility] [place], [place] ERY BAGGER ERY BAGGER * Jimenez Henao MD - 10/16/2023 12:31 PM CST Daily Progress Note Division of Hospital Medicine Name: Hira Evans : 1950 Today's Date: October 16, 2023 Age: 73 y.o. male Admission: 10/12/2023 Bed: [id number] LOS: 3 days Subjective Chief complaint: back [...] 80 minutes which was spent performing a xuhf-ep-tcxm encounter and personally completing the provider-level activities documented in the note. This includes time spent prior to the visit and after the visit in direct care of the patient. This time does not include time spent in any separately reportable services. Jimenez Henao MD ERY BAGGER * Collin Barnes MD - 10/16/2023 8:24 [...] to date. 10/14/2023 Output by Drain (mL) 10/14/23699 - 10/14/23185810/14/231899 - 10/15/23 0659 10/15/23699 - 10/15/23 18510/15/23 190 - 10/16/23 0659 10/16/23699 - 10/16/23 0824 Requested LDAs do not have output data documented. Assessment and Plan: 73-year-old male with left hydroureter due to obstructing stone s/p L PCN placement on 08/16. -Continue to flush 10 mL normal saline every 8 hours. -Continue to monitor drainage output. ERY BAGGER * Hayden Youngblood MD - 10/16/2023 6:46 [...] For susceptibility results, refer to accession number [id number] on the urine culture from 10/11/23 MICROBIOLOGY [...] the appropriate orthopaedic surgery team, please use [email or web address] to page resident directly. If questions arise and the appropriate resident can't be reached or you are calling overnight, please contact [phone] ([place]- 7:30 PM - 6:30 AM - Floor Resident) or [phone] (24 hours/day - Consult Resident) Cosigned by Hayder Vu MD at 10/16/2023 7:19 AM GROCERY BAGGER ERY BAGGER ERY BAGGER * Marquise Lim MD - 10/15/2023 8:52 AM CST Daily Progress Note Division of Hospital Medicine Name: Hira Evans : 1950 Today's Date: October 15, 2023 Age: 73 y.o. male Admission: 10/12/2023 Bed: [id number] LOS: 2 days Subjective Chief complaint: back [...] Ct urogram per renal US reading -Per Urology, chip harris prior to discharge. Disposition: Pending, PT. Likely [...] 80 minutes which was spent performing a htfp-rs-pfaf encounter and personally completing the provider-level activities documented in the note. This includes time spent prior to the visit and after the visit in direct care of the patient. This time does not include time spent in any separately reportable services. Marquise Lim MD ERY BAGGER * Ana Alfaro MD - 10/15/2023 7:20 [...] For susceptibility results, refer to accession number [id number] on the urine culture from 10/11/23 Exam: Left PCN site c/d/i. Assessment and Plan: 73-year old man with partially obstructing left ureteral stone post left PCN placement in 10/14/2023. Continue to flush 10 mL normal saline every 8 hours. Continue to monitor drainage output. ERY BAGGER * Hayden Youngblood MD - 10/15/2023 7:07 [...] 5/5 in BUE deltoid, biceps, triceps, WE/WF, railroad car letterer Sensation Left lower extremity: SILT L2 to [...] For susceptibility results, refer to accession number [id number] on the urine culture from 10/11/23 MICROBIOLOGY [...] the appropriate orthopaedic surgery team, please use [email or web address] to page resident directly. If questions arise and the appropriate resident can't be reached or you are calling overnight, please contact [phone] ([place]- 7:30 PM - 6:30 AM - Floor Resident) or [phone] (24 hours/day - Consult Resident) Cosigned by Hayder Vu MD at 10/15/2023 8:54 AM GROCERY BAGGER ERY BAGGER ERY BAGGER Associated attestation - Hayder Vu Jr., MD - 10/15/2023 8:54 AM GROCERY BAGGER Attending Attestation I have seen and examined [...] of Mr. Evans. Hayder Vu Jr., MD Services Program Manager Department of Orthopaedic Surgery Division of Spine Surgery [facility] [place], [place] Breeding Manager done by [employer]; therefore, variances and [...] For susceptibility results, refer to accession number [id number] on the urine culture from 10/11/23 MICROBIOLOGY [...] the appropriate orthopaedic surgery team, please use [email or web address] to page resident directly. If questions arise and the appropriate resident can't be reached or you are calling overnight, please contact [phone] (Sun-Th 7:30 PM - 6:30 AM - Floor Resident) or [phone] (24 hours/day - Consult Resident) Cosigned by Hayder Vu MD at 10/15/2023 9:21 AM GROCERY BAGGER ERY BAGGER ERY BAGGER ERY BAGGER Associated attestation - Hayder Vu Jr., MD - 10/15/2023 9:21 AM GROCERY BAGGER I agree with the resident's note with [...] Age: 73 y.o. male Admission: 10/12/2023 Bed: [id number] LOS: 1 days Subjective Chief complaint: fever+chills [...] 70 minutes which was spent performing a mdvd-xz-yhpj encounter and personally completing the provider-level activities documented in the note. This includes time spent prior to the visit and after the visit in direct care of the patient. This time does not include time spent in any separately reportable services. Marquise Lim MD ERY BAGGER * Marquise Lim MD - 10/13/2023 7:43 AM CST Daily Progress Note Division of Hospital Medicine Name: Hira Evans : 1950 Today's Date: October 13, 2023 Age: 73 y.o. male Admission: 10/12/2023 Bed: [id number] LOS: 0 days Subjective Chief complaint: Sepsis [...] : / Supplementary Attestation Marquise Lim MD ERY BAGGER documented in this encounter H&P Notes * [...] 1 tablet (10 mg total) by mouth supervisor tank house before breakfast cholecalciferol (VITAMIN D-3) 5,000 unit capsule Take 1 capsule (5,000 Units total) by mouth every morning coenzyme Q10 100 mg capsule Take 1 capsule (100 mg total) by mouth supervisor tank house before breakfast DILT-XR 240 mg 24 hr capsule Take 1 capsule (240 mg total) by mouth 2 (two) times a day 0 fish,bora,flax oils-om3,6,9no1 400-400-400 mg capsule Take 1 tablet by mouth supervisor tank house before breakfast irbesartan (AVAPRO) 300 mg tablet [...] routine EEG - Neurology consulted, appreciate recs: rEEG, bMRI epilepsy protocol CV: #In-hospital cardiac arrest - [...] Arceo Jr., MD at 10/24/2023 5:52 AM GROCERY BAGGER ERY BAGGER ERY BAGGER Associated attestation - Wilder Arceo Jr., MD - 10/24/2023 5:52 AM GROCERY BAGGER Critical Care Time: I have spent 75 [...] plan with the ICU team and other medical/regulatory services consultant staff. Wilder Arceo Jr., MD * [...] for OR today from a medical standpoint. ERY BAGGER ERY BAGGER Source Note - Severo Merlos MD - 10/13/2023 5:00 AM GROCERY BAGGER History and Physical Division of [facility] Medicine Name: Hira Evans : 1950 Today's Date: October 13, 2023 Age: 73 y.o. male Admit Date: 10/12/2023 Bed: [id number] LOS: 0 days Subjective Hira Evans is [...] 1 tablet (10 mg total) by mouth supervisor tank house before breakfast cholecalciferol (VITAMIN D-3) 5,000 unit capsule Take 1 capsule (5,000 Units total) by mouth every morning coenzyme Q10 100 mg capsule Take 1 capsule (100 mg total) by mouth supervisor tank house before breakfast DILT-XR 240 mg 24 hr capsule Take 1 capsule (240 mg total) by mouth 2 (two) times a day fish,bora,flax oils-om3,6,9no1 400-400-400 mg capsule Take 1 tablet by mouth supervisor tank house before breakfast irbesartan (AVAPRO) 300 mg tablet [...] 60 minutes which was spent performing a bacg-bs-ikef encounter and personally completing the provider-level activities documented in the note. This includes time spent prior to the visit and after the visit in direct care of the patient. This time does not include time spent in any separately reportable services. Severo Merlos MD ERY BAGGER * Gabriel Bennett MD - 10/18/2023 9:06 AM CST I have reviewed the H&P, examined the patient, and endorse the findings as written. Plan of Care : Based on the above findings, I consider Hira Evans to be an acceptable risk for : Procedure(s): CYSTOSCOPY PYELOGRAM - RETROGRADE LITHOTRIPSY - LASER URETEROSCOPY ERY BAGGER Source Note - Fredrick Mcneil MD - 10/12/2023 10:45 PM GROCERY BAGGER Images from the original note were not [...] to concerning symptoms, he was transferred to [facility] ED for further workup. Patient's reports [...] 143/83 Pulse: 88 [phone] 78 69 Resp: Temp: SpO2: 100% 98% 98% 98% Weight: [...] or concerns, please page Urology through the clutch operator. Vero Tolentino MD 10/12/2023 ERY BAGGER ERY BAGGER ERY BAGGER * Severo Merlos MD - 10/13/2023 5:00 AM CST History and Physical Division of [facility] Medicine Name: Hira Evans : 1950 Today's Date: October 13, 2023 Age: 73 y.o. male Admit Date: 10/12/2023 Bed: [id number] LOS: 0 days Subjective Hira Evans is [...] 1 tablet (10 mg total) by mouth supervisor tank house before breakfast cholecalciferol (VITAMIN D-3) 5,000 unit capsule Take 1 capsule (5,000 Units total) by mouth every morning coenzyme Q10 100 mg capsule Take 1 capsule (100 mg total) by mouth supervisor tank house before breakfast DILT-XR 240 mg 24 hr capsule Take 1 capsule (240 mg total) by mouth 2 (two) times a day fish,bora,flax oils-om3,6,9no1 400-400-400 mg capsule Take 1 tablet by mouth supervisor tank house before breakfast irbesartan (AVAPRO) 300 mg tablet [...] 60 minutes which was spent performing a npor-cr-qoup encounter and personally completing the provider-level activities documented in the note. This includes time spent prior to the visit and after the visit in direct care of the patient. This time does not include time spent in any separately reportable services. Severo Merlos MD ERY BAGGER documented in this encounter Procedure Notes * [...] plan with the patient's team and other medical/regulatory services consultant staff. This time was in addition to and separate from care provided by other practitioners on this day of service. ERY BAGGER * Wilder Arceo Jr., MD - 10/24/2023 [...] plan with the ICU team and other medical/regulatory services consultant staff, making frequent assessments and decisions [...] hemorrhage, Acute pain/acute postoperative pain and Seizure Usp-VH-Hajxkhqon mycardial infarction (Non-STEMI) and Cardiac arrest Hypo- [...] spent time documenting in the medical record ERY BAGGER * Wilder Arceo Jr., MD - 10/23/2023 [...] plan with the ICU team and other medical/regulatory services consultant staff, making frequent assessments and decisions [...] spent time documenting in the medical record ERY BAGGER documented in this encounter Consult Notes * Yumiko Rome MD - 10/28/2023 9:48 AM CSTAssociated Order(s): IP CONSULT TO NEUROSURGERY Neurosurgery Consultation Patient: Hira Evans CSN: [id number] : 1950 Admission date: 10/12/2023 Length of [...] open L4-5 posterior spinal fusion (TLIF from [facility], laminectomy autograft and allograft). Postprocedure, in [...] His , Neelima, can be reached at [phone] Family history: Reviewed and noncontributory. Physical Examination: [...] discussed with the chief resident and attending collection officer. The patient was evaluated within 30 minutes of consultation Yumiko Rome MD Cosigned by Jeremy Mojica MD at 10/30/2023 3:48 PM GROCERY BAGGER ERY BAGGER ERY BAGGER ERY BAGGER Associated attestation - Jeremy Mojica MD - 10/30/2023 3:48 PM GROCERY BAGGER I have seen and examined the patient [...] 73 y.o. male Admit Date: 10/12/2023 Bed: [id number] LOS: 13 days Subjective HPI 73 year [...] and a subsequent cardiac [facility]. [facility] with acute pulmonary emboli [...] 1 tablet (10 mg total) by mouth supervisor tank house before breakfast cholecalciferol (VITAMIN D-3) 5,000 unit capsule Take 1 capsule (5,000 Units total) by mouth every morning coenzyme Q10 100 mg capsule Take 1 capsule (100 mg total) by mouth supervisor tank house before breakfast DILT-XR 240 mg 24 hr capsule Take 1 capsule (240 mg total) by mouth 2 (two) times a day fish,bora,flax oils-om3,6,9no1 400-400-400 mg capsule Take 1 tablet by mouth supervisor tank house before breakfast irbesartan (AVAPRO) 300 mg tablet [...] Medicine Consults will sign off. Please call [phone] for further questions. Viry Patterson MD Cosigned by Ryan London MD at 10/26/2023 5:20 PM GROCERY BAGGER ERY BAGGER ERY BAGGER Associated attestation - Ryan London MD - 10/26/2023 5:20 PM GROCERY BAGGER Attending Documentation I have seen and examined [...] Consult Note Requesting Provider or Service: Hayder Vu*, Ortho Reason for Consult: seizure like activity [...] mg/mL injection - ADS Override Pull multivit sededzfe-ktbu-ZP-calcium (THERA-M) tablet 1 tablet 1 tablet oral Daily pantoprazole DR (PROTONIX) extended release tablet 40 mg 40 mg oral Daily senna-docusate (PERICOLACE) 8.6-50 mg per tablet 2 tablet 2 tablet oral BID sodium chloride 0.9% flush 0.5-20 mL 0.5-20 mL intra-catheter Q8H CAMMY sodium chloride 0.9% flush 0.5-20 mL 0.5-20 mL intra-catheter Q8H CAMYM succinylcholine (ANECTINE) 20 mg/mL injection - ADS [...] Review: Laboratory Data Recent Labs Lab Units 10/24/231910/23/23230210/23/23223810/23/23220610/23/232151 WBC K/cumm 22.9* 26.7* -- -- 23.8* HEMOGLOBIN, POC g/dL -- -- 9.2* < > -- HEMOGLOBIN g/dL 9.0* 9.0* -- -- 9.8* HEMATOCRIT % 25.4* 27.3* -- -- 32.0* HEMATOCRIT POC % -- -- 28.0* < > -- PLATELETS K/cumm 366 418* -- -- 458* < > = values in this interval not displayed. 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 Thank you for this consult. Neurology Consult Call Back: [phone] (senior phone). Please do nothesitate to contact us with any questions or concerns, and specify that this consult was staffed with consult team A. Zaheer Bennett MD, PHD Neurology Resident, PGY-2 10/24/2023 1:15 AM Cosigned by Steve Funk MD PhD at 10/24/2023 10:51 PM GROCERY BAGGER ERY BAGGER ERY BAGGER ERY BAGGER ERY BAGGER Associated attestation - Steve Funk MD PhD - 10/24/2023 10:51 PM GROCERY BAGGER I have seen and examined the patient [...] to concerning symptoms, he was transferred to [facility] ED for further workup. Patient's reports [...] or concerns, please page Urology through the clutch operator. Vero Tolentino MD 10/12/2023 ERY BAGGER ERY BAGGER ERY BAGGER * Hayden Youngblood MD - 10/12/2023 7:22 [...] 1 tablet (10 mg total) by mouth supervisor tank house before breakfast Fidelia Perdue MD cholecalciferol (VITAMIN D-3) 5,000 unit capsule Take 1 capsule (5,000 Units total) by mouth every morning Fidelia Perdue MD coenzyme Q10 100 mg capsule Take 1 capsule (100 mg total) by mouth supervisor tank house before breakfast Fidelia Perdue MD DILT-XR 240 mg 24 hr capsule Take 1 capsule (240 mg total) by mouth 2 (two) times a day 05/12/19 Fidelia Perdue MD fish,bora,flax oils-om3,6,9no1 400-400-400 mg capsule Take 1 tablet by mouth supervisor tank house before breakfast Fidelia Perdue MD irbesartan (AVAPRO) [...] (20 mg total) by mouth every morning ProviderFidelia MD No Known Allergies Social History Tobacco [...] unknown source. Scar over left flank from previousresection of the melanoma. No visible deformity on inspection. No appreciable muscular atrophy.Normal muscular tone. Motor: Muscle Strength Left Right Deltoid 5/5 5/5 Biceps 5/5 5/5 Triceps 5/5 5/5 Wrist extension 5/5 5/5 Wrist flexion 5/5 5/5 Solvent Process Extractor Operator 5/5 5/5 Interosseous of hand 5/5 5/5 [...] M.D., Ph.D. Department of Orthopaedic Surgery, PGY-2 [facility] in [facility] Please use [employer] to page/call the appropriate Orthopaedic Surgery Team/Resident if questions or concerns. Normal business hours: If you know the resident's name on the appropriate orthopaedic surgery team,please use the Directory Search at [employer] to page resident directly. If questions arise and the appropriate resident can't be reached or you are calling overnight, please contact [phone] ( 7:30 PM - 6:30 AM - Floor Resident) or [phone] (24 hours/day - Consult Resident) Cosigned by Hayder Vu MD at 10/14/2023 10:41 PM GROCERY BAGGER ERY BAGGER ERY BAGGER documented in this encounter Nursing Notes * Sherice Wilcox RN - 10/24/2023 1:21 AM CST Fredrick MACKEY [place] [address] in anticipation of admission to our unit.Post op, patient went to ICU. AN brought bag of patient belongings to current room 4401. ERY BAGGER * Nolvia Gonzales RN - 10/23/2023 10:20 [...] Anesthesia at bedside tobring patient to ICU. ERY BAGGER * Fredrick Sheffield RN - 10/23/2023 7:04 PM CST Patient belongings (blanket, jacket, shoes, mirror, shirt, pajama pants) brought to unit 30508, where patient is transferring. Entire room searched for belongings, [place] [address]. ERY BAGGER * Frieda Cai RN - 10/18/2023 6:14 PM CST Patient went to surgery today and got a stent place, the catheter was changed during surgery. No drainage or leakage around the harris cath noted. ERY BAGGER * Ad Parikh RN - 10/16/2023 3:01 PM CST Assumed care for patient at 1500. This Rn agrees with previous RN's assessment. Patient A&ox4 and resting in bed. Will continue to monitor. ERY BAGGER * Adia Poole RN - 10/15/2023 7:44 [...] needs, and inagreement with bedside shift report. ERY BAGGER documented in this encounter ED Notes * Justice Vivas RN - 10/12/2023 6:25 PM CST Bed: ED1-14 Expected date: Expected time: Means of arrival: Car Comments: Justice Vivas RN 10/12/23 2495 ERY BAGGER * Amol Hargrove MD - 10/12/2023 6:22 [...] E coli. Patient was sent to the [facility] ED at the instruction of Dr. [...] of Care ED Course as of 10/12/23 0292 Time: 10/12 1840 Comment: Attending physician assessment [...] Left leg weakness Amol Hargrove MD Resident 10/12/23 5836 Cosigned by Rafael Cowan MD at 10/14/2023 12:05 AM GROCERY BAGGER ERY BAGGER ERY BAGGER Associated attestation - Rafael Cowan MD - 10/14/2023 12:05 AM GROCERY BAGGER I have seen and examined the patient on 10/12/2023. I reviewed the resident's note and agree with the findings and plan of care as documented in the resident's note with modifications as documented inmy note. * Mraiola Bee RN - 10/12/2023 4:22 PM CST Was told he had a UTI when he came in for pre-op testing, was not prescribed abx. Was told to come to the ED to be admitted to get treated prior to spinal surgery on Sunday. Reports malodorous urine. ERY BAGGER documented in this encounter Miscellaneous Notes * Provider Query - Hayder Vu MD - 10/30/2023 4:07 PM GROCERY BAGGER Greetings Dr. Vu Please clarify if sepsis [...] of the patient???s medical record. Sincerely, Boaz Jolly [employer] Information Management ERY BAGGER * Provider Query - Hayder Vu MD - 10/30/2023 4:07 PM GROCERY BAGGER Greetings Dr. Vu, Both respiratory failure and [...] the patient???s medical record. Sincerely, Boaz Harris [facility] Information Management ERY BAGGER * Plan of Care - Nathalie Herrera RN - 10/30/2023 2:38 PM CST [facility] Health unable to accept due to insurance. Referrals sent to remaining home health agencies that serve patient's zip code: [facility]unable to [facility] due to [facility]ing limitations [facility]---unable to accept due to staffing limitations [facility]---unable to accept due to insurance. [facility]--unable to accept due to staffing limitations [facility]--unable to accept due to insurance. At this time, all home health agency options have been exhausted. Unable to secure home health therapy. Called patient's spouse Cynda to update. No further case management needs identified at this time ERY BAGGER ERY BAGGER ERY BAGGER ERY BAGGER * Plan of Care - Matilda Gonzales [...] Declined PRN pain med for trip home. ERY BAGGER * Plan of Care - Nathalie Herrera RN - 10/30/2023 1:21 PM CST [facility] ([facility] Health has accepted patient pending insurance [...] [facility] unable to accept[phone] if and when home health is secured. ERY BAGGER * Plan of Care - Nathalie Herrera RN - 10/30/2023 9:29 AM CST [facility] unable to accept. ERY BAGGER * Plan of Deny - Suzanne Mendoza RN - 10/30/2023 5:08 [...] health care needs will improve Outcome: Progressing ERY BAGGER * Plan of Care - Matilda Gonzales RN - 10/29/2023 6:50 [...] up. EPC used for sacral chaffing. Several collection officer residents notified regarding drain which accidentally came out during care. ERY BAGGER * Plan of Care - Suzanne Mendoza [...] Goal: Pain level will decrease Outcome: Progressing ERY BAGGER * Plan of Care - Erick Melchor [...] voiding will increase 10/28/2023 1610 by Erick Melchor RN Outcome: Progressing 10/28/2023 1610 by Erick Melchor RN Outcome: Progressing Goal: Experiences of bladder distention will decrease 10/28/2023 1610 by Erick Melchor [...] 1610 by Erick Melchor RN Outcome: Progressing ERY BAGGER * Plan of Deny - Ritu Marin RN - 10/28/2023 1:05 [...] pain meds. VS and drain output documented. ERY BAGGER * Significant Event - Viry Patterson MD [...] Medicine Consults will sign off. Please call [phone] for further questions. Viry Patterson MD PGY3 Internal Medicine ERY BAGGER * Assessment & Plan Note - Viry Patterson MD - 10/26/2023 5:11 PM GROCERY BAGGER Associated Problem(s): Pulmonary embolism (HCC) Patient with new PE on CT PE 10/23. Tolerating heparin gtt. Likely provoked in setting of recent surgery. - Patient will need at least 3 months of anticoagulation, and can follow up with PCP for consideration of discontinuation - If no other surgical interventions planned at this time, can transition to therapeutic Lovenox vsEliquis per primary team. ERY BAGGER * Plan of Care - Luana Savage RN - 10/26/2023 2:49 PM CST Per Medical Chart/Rounds/IDR: Per IDR rounds with Foreign Collection Clerk, Exterior Interior Specialist, Charge Nurse, and MD, the patient is [...] assistance, please check the treatment team in [facility] for the assigned trimming caser or contact the weekend Case Management phone ERY BAGGER * Plan of Care - Harvey Horn [...] 2.5L via nasal cannula. Repositioned for comfort. ERY BAGGER ERY BAGGER * Significant Event - Tia Nolan NP - 10/25/2023 8:13 PM GROCERY BAGGER CHUGG-OUT (SICU to OU/Floor Transfer) SICU MD [...] Ruano of the ortho service. QUESTIONS? Call [phone] (3100 Blue 2). 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 Please call the neurology consult phone at [phone] (Senior) with questions. James Silva MD Neurology resident PGY-3 ERY BAGGER * Plan of Care - Tamia Holman RN - 10/25/2023 10:41 AM CST Goals: Clinical Goals for the Shift: VSS, pending MRI, pain control, continue heparin drip, PM labs Summary: Plans for the day, pain control, VSS, labs/monitor hepain gtt, MRI pending. ERY BAGGER * Plan of Care - Edwige Porras [...] and injury in home environment Outcome: Defer ERY BAGGER * Initial Assessments - Jacqueline Walker MSW [...] Agent? 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 Payor Source: Medicare advantage Race: White/ Ethnicity: Non- Sexual Orientation : BIBI Gender Identity: Male Service : none (10/24/23 120) Current Situation: Current Situation Living Arrangements: Spouse/significant other Type of Residence: Private residence Income: Employed Financial assistance: Unknown Education Level : Unable to assess How do you Pay for Medication: insurance Current Transportation: Family/friends (currently, has been driving ) What do you do with your Free Time: work is his passion (10/24/23 120) Legal History: Legal History Legal Information : Other (Comment) (unable to assess) (10/24/23 120) Support Systems and Spirituality: Support Systems and Spirituality Support System: Spouse, Children Spouse Name/Contact Information: Phan Evans, [phone], spouse Children Name/Contact Information: son, Hayder Evans, ; son, Stefan Evans, ; daughter, Annetta Pina, Family Perspective: Phan stated that Hira has three children, and she has two children of her own so they have a total of five children. Phan stated that they have a good support system. Do you have a Faith Preference or Affiliation?: No Are there any Faith Practices that are important to maintain while [...] : Refused to answer (unable to assess) (10/24/23 1207) Strengths, Assets, Liabilities and Stressors: Strengths, Assets, Liabilities, and Stressors Strengths (Must Choose Two): Interpersonal relationships and supports,i.e., family, friends, peers,Access to housing/residential stability, Steady employment, Financial stability Patient Assets: Employed, Home, Income, Insured, Transportation, Supportive family Hope and Strength during Difficult Times: unable to assess Does Pt have access to Employee Assistance Program: Yes (10/24/23 1207) SDOH Transportation Needs: No Transportation Needs (10/24/2023) [...] More than three times a week Attends Faith Services: Never Active Member of Clubs or [...] concerns for her at this time. (10/24/23 1207) Risk to Self and Others: Risk to Self and Others Violence risk to self in past 6 months? : Unable to assess Self Harm/Suicidal Ideation Plan: Unable to assess Violence risk to others in past 6 months? : Unable to assess Any lifetime risk of violence to others? : Unable to assess (10/24/23 1207) Impressions and Recommendations: Patient is 73 year [...] including surrogate decision makers, durable power of employment law attorney, and advanced directives. Patient has a POA on file, dated 2007, that spouse, Phan, affirmed to be current. POA lists: Agent: Phan Finnegansusanlinda; 1st Alternate: Kaiser Nathan, brother; 2nd Alternate: Janene Nathan, sister. Patient's spouse, Phan, states that Hira [...] CM following for discharge planning. GEN Medina, POULTRY KILLER ERY BAGGER * Significant Event - Nasir Manzanares MD - 10/23/2023 10:14 PM GROCERY BAGGER At the end of the OR case, [...] Hayder Vu MD at 10/23/2023 11:31 PM GROCERY BAGGER ERY BAGGER ERY BAGGER Associated attestation - Hayder Vu Jr., MD - 10/23/2023 11:31 PM GROCERY BAGGER Upon transfer to PACU, patient was noted [...] SICU. I have spoken with his , Phan, twice and have updated her on his situation. Appreciate excellent care by SICU. We will continue to follow closely. Hayder Vu Jr., MD Services Program Manager Department of Orthopaedic Surgery Division of Spine Surgery [facility] [place], [place] * Op Note - Hayder Vu MD - 10/23/2023 5:14 PM CST Operative Report Surgeon Hayder Vu MD Tool Turret Lathe Set Up Operator(s) Nasir Manzanares MD Anesthesia General endotracheal. Preoperative [...] of the L5 spinous process. A lamina industrial controller was placed between the remainder of the [...] placed under fluoroscopic guidance. A Globus Sable [id number] 7-14mm 15 Deg lordo tic cage was [...] obstruction. The decompression was confirmed with a Ashley elevator which was able to be passed [...] Implant Name Type Inv. Item Serial No. Marine Oiler Lot No. LRB No. Used Action [employer] Crushed Chip Frozen Graft 30ml Bone Cancellous [id number] - [id number] [employer]OURCE CrushedChip Frozen Graft 30ml Bone Cancellous [id number] All[employer]ource [id number] N/A 1 Implanted [employer] Allograft Bone Putty 2.5CC 700-025 - [id number] [employer] Allograft Bone Putty2.5CC 700-025 bMenu [id number] N/A 1 Implanted [employer] Creo Od7.5 Mm L55 Mm Thread Polyaxial Spine Screw Bone Titanium 5146.1757 - [id number] [employer] Creo Od7.5 Mm L55 Mm Thread Polyaxial Spine Screw Bone Titanium 5146.1757 [employer] N/A 1 Implanted [employer] Creo Od7.5 Mm L50 Mm Thread Polyaxial Spine Screw Bone Titanium 5146.1752 - [id number] [employer] Creo Od7.5 Mm L50 Mm Thread Polyaxial Spine Screw Bone Titanium 5146.1752 [employer] N/A 3 Implanted [employer] Creo Thread Spinal Cap Locking Nonsterile 1119.0010 - [id number] [employer] Creo Thread Spinal Cap Locking Nonsterile 1119.0010 [employer] N/A 4 Implanted [employer] Implant Spinal Sable 53o66gi 7-14mm 15 Deg 1172.2121S - [id number] [employer] Implant Spinal Sable 83u83us 7-14mm 15 Deg 1172.2121S [employer] N/A 1 Implanted [employer] Creo 5.5mm 45mm Curve Daniel Spinal Titanium 1119.7045 - [id number] [employer] Creo 5.5mm 45mm Curve Daniel Spinal Titanium 1119.7045 [employer] N/A 2 Implanted Specimens None. Counts Correct. Estimated Blood Loss 150 mL. Total IV Fluids 1500 mL. Complications None. Condition on Discharge from OR Stable. Hayder Vu Jr., MD Services Program Manager Department of Orthopaedic Surgery Division of Spine Surgery [place], [place] Operative Report dictated by Hayder Vu MD on 10/26/23 using Fluency Direct. Transcriptionvariances may occur. ERY BAGGER ERY BAGGER ERY BAGGER * Brief Op Note - Nasir Manzanares MD - 10/23/2023 5:14 PM CST Operative Progress Note Surgical Team: Surgeon(s) and Role: * Hayder Vu MD - Primary * Nasir Manzanares MD - Resident - Assisting Anesthesiologist: Ann Salazar MD TELECOMMUNICATIONS SUPPORT: Deisy Snyder CRNA Ems Manager: Alice Vaughn MD Interior Design Principal: Yeni Walker RN; Rena Michelle RN Scrub Relief: Sergio-Nasur, Rad, ST Scrub: Teo Stiles ST Light Bulb Tester: Belen Valdez [place] FLOAT: Oneyda Foley NP DATE OF [...] Implant Name Type Inv. Item Serial No. Marine Oiler Lot No. LRB No. Used Action [employer] Crushed Chip Frozen Graft 30ml Bone Cancellous [id number] - [id number] [employer] CrushedChip Frozen Graft 30ml Bone Cancellous [id number] [employer]ource [id number] N/A 1 Implanted [employer] Allograft Bone Putty 2.5CC 700-025 - [id number] [employer] Allograft Bone Putty2.5CC 700-025 [employer] [id number] N/A 1 Implanted [employer] Creo Od7.5 Mm L55 Mm Thread Polyaxial Spine Screw Bone Titanium 5146.1757 - [id number] [employer] Creo Od7.5 Mm L55 Mm Thread Polyaxial Spine Screw Bone Titanium 5146.1757 [employer] N/A 1 Implanted [employer] Creo Od7.5 Mm L50 Mm Thread Polyaxial Spine Screw Bone Titanium 5146.1752 - [id number] [employer] Creo Od7.5 Mm L50 Mm Thread Polyaxial Spine Screw Bone Titanium 5146.1752 [employer] N/A 3 Implanted [employer] Creo Thread Spinal Cap Locking Nonsterile 1119.0010 - [id number] [employer] Creo Thread Spinal Cap Locking Nonsterile 1119.0010 [employer] N/A 4 Implanted [employer] Implant Spinal Sable 89x29ta 7-14mm 15 Deg 1172.2121S - [id number] [employer] Implant Spinal Sable 12t65ur 7-14mm 15 Deg 1172.2121S [employer] N/A 1 Implanted [employer] Creo 5.5mm 45mm Curve Daniel Spinal Titanium 1119.7045 - [id number] [employer] Creo 5.5mm 45mm Curve Daneil Spinal Titanium 1119.7045 [employer] N/A 2 Implanted Blood/Blood Products Transfused: 0 mls Complications: None Condition on Discharge from the operating room was stable Nasir Manzanares MD Date: 10/23/2023 Time: 9:25 PM TEACHING ATTESTATION : I was present and directly participated in the entire procedure (including opening and closing). Cosigned by Hayder Vu MD at 10/26/2023 12:57 PM GROCERY BAGGER ERY BAGGER ERY BAGGER * Plan of Care - Stefany Crook RN - 10/23/2023 12:06 AM CST Problem: Safety: Goal: Will remain free from falls Outcome: Progressing Goals: Clinical Goals for the Shift: VSS, pain management, safety and comfort Summary: ERY BAGGER * Plan of Care - Lisa Rudolph [...] Goal: Pain level will decrease Outcome: Progressing ERY BAGGER * Plan of Care - Lana Turcios [...] VSS, pain management, safety and comfort Summary: ERY BAGGER * Plan of Care - Harmony Norman [...] Goal: Pain level will decrease Outcome: Progressing ERY BAGGER * Plan of Care - Johnnie Flores [...] with VS WNL, pain free, and safe. ERY BAGGER * Plan of Care - Brandyn Cain [...] Shift: VS WNL, pain control and safety. ERY BAGGER * Plan of Care - Johnnie Flores [...] pain was under control with prn medication. ERY BAGGER * Consults, Subsequent - Vero Tolentino MD - 10/19/2023 10:01 AM GROCERY BAGGER Images from the original note were not [...] or concerns, please page Urology through the clutch operator. Vero Tolentino MD 10/19/2023 Cosigned by Fredrick Mcneil MD at 10/19/2023 10:25 AM GROCERY BAGGER ERY BAGGER ERY BAGGER * Plan of Care - Brandyn Cain [...] Goal: Pain level will decrease Outcome: Ongoing ERY BAGGER * Plan of Care - Frieda Cai [...] unmanageable or unbearable will improve Outcome: Progressing ERY BAGGER * Plan of Care - Torey Mckenna RN - 10/18/2023 3:26 PM CST Per Medical Chart/Rounds/DCAM: IDR ADD: TBD Plan & referrals made/in place: Patient [facility], but may discharge todaughter[place], [place]. Patient went to OR with urology [...] Patient and/or family are agreeable with plan. manufacturing area manager will continue to follow and assist with discharge planning as needed. If any further discharge needs arise, please contact the covering trimming caser. ERY BAGGER * Consults, Subsequent - Vero Tolentino MD - 10/18/2023 3:15 PM GROCERY BAGGER Images from the original note were not [...] or concerns, please page Urology through the clutch operator. Vero Tolentino MD 10/18/2023 Cosigned by Gabriel Bennett MD at 10/18/2023 6:54 PM GROCERY BAGGER ERY BAGGER ERY BAGGER ERY BAGGER Associated attestation - Gabriel Bennett MD - 10/18/2023 6:54 PM GROCERY BAGGER I have seen and examined the patient on 10/18/23. I agree with the findings and plan of care as documented in the resident's/fellow's note. Plan for OR today. Please see op note for additional details re: ongoing urologic care plan. * Perioperative Nursing Note - Kasey Blakely RN - 10/18/2023 11:44 AM CST Patient seen by Dr. Lak. Francis to return back to room to get PET scan done over on [facility]. ERY BAGGER * Plan of Care - Rosi Fernandes MD - 10/18/2023 11:19 AM GROCERY BAGGER Mr. Evans is a 73 yo male [...] from 6:00 to 18:00 (Sunday-Sunday), please call [phone].If you want to contact Urology consults after hours (18:00 to 6:00) and over the weekend, please call the clutch operator. Cosigned by Gabriel Bennett MD at 10/18/2023 3:59 PM GROCERY BAGGER ERY BAGGER ERY BAGGER * Op Note - Gabriel Bennett MD - 10/18/2023 8:45 AM CST OPERATIVE REPORT SURGEON Gabriel Bennett M.D. [employer] WALKER Vero Tolentino MD ANESTHESIA General. PREOPERATIVE DIAGNOSIS [...] ensure proper patient and proper procedure. A 22-Setswana rigid cystoscope was introduced into the urethra [...] present and participated in the entire procedure. ERY BAGGER * Plan of Care - Christal García [...] Goal: Pain level will decrease Outcome: Progressing ERY BAGGER * Plan of Care - Lisa Rudolph [...] unmanageable or unbearable will improve Outcome: Progressing ERY BAGGER * Consults, Subsequent - Vero Tolentino MD - 10/17/2023 11:41 AM GROCERY BAGGER Images from the original note were not [...] Continue antibiotics through surgery - NPO @ [facility] for stone procedure tomorrow - Urology will continue to follow Thank you for allowing us to participate in the care of this patient. For any questions or concerns, please page Urology through the clutch operator. Vero Tolentino MD 10/17/2023 Cosigned by Maris Montilla MD at 10/18/2023 9:04 AM GROCERY BAGGER ERY BAGGER ERY BAGGER * Plan of Care - Stacy Tim [...] keep pt free from injury and comfortable ERY BAGGER * Plan of Care - Rebecca Lozano [...] Activity: Goal: Mobility will improve Outcome: Progressing ERY BAGGER * Plan of Care - Dionne Palafox [...] medications given withpartial relief. Vital signs stable. ERY BAGGER * Plan of Care - Lana Turcios [...] q 8 hours, pain management, encourage activity ERY BAGGER * Assessment & Plan Note - Jimenez Henao MD - 10/15/2023 9:06 AM GROCERY BAGGER Associated Problem(s): Left perinephric collection, 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 Likely post procedure complication. Urology following - CT urogram on 10/16 notes presence of L perinephric hematoma - Continue to trend white count, renal function and fever curve ERY BAGGER ERY BAGGER ERY BAGGER * Consults, Subsequent - Vero Tolentino MD - 10/15/2023 6:38 AM GROCERY BAGGER Images from the original note were not [...] was obtained. Prior to beginning the procedure, [place] Protocol was performed to confirm the patient's [...] or concerns, please page Urology through the clutch operator. Vero Tolentino MD 10/14/2023 Cosigned by Fredrick Mcneil MD at 10/17/2023 5:10 PM GROCERY BAGGER ERY BAGGER ERY BAGGER ERY BAGGER * Plan of Care - Lyn Tolliver [...] Provided comfort and safety. Nephrostomy dressing changed. ERY BAGGER * Plan of Care - Sue Allison [...] pressure high, MD notified. Patient resting comfortably. ERY BAGGER * Post-Procedure Note - Ana Alfaro MD - 10/14/2023 1:46 PM CST Radiology Brief Post Procedure Note Attending: Dr. Hughes Appellate Court Judge: Dr. Alfaro Sedation/Anesthesia: Min Sedation Pre-Op/Pre-Procedure Diagnosis: Hydronephrosis Post-Op/Post-Procedure Diagnosis: Mild hydronephrosis with blood clots in the collecting system andmoderate hydroureter Procedure Performed: Right percutaneous PCN placement Procedure Findings: Successful PCN placement Complications: None Estimated Blood Loss: < 30 ml Specimens: 10 ml aspirate sent to the lab Condition: Stable Full report to follow. ERY BAGGER * Pre-Procedure Note - Ana Alfaro MD [...] Date Allergic rhinitis Arthritis OA Cancer (CMS/HCC) ([facility]) prostate and melonomia Gastric reflux GERD (gastroesophageal [...] 2,000 mg, intravenous, Q24H CAMMY, Severo Merlos MD, 2,000 mg at 10/14/23 0843 [Held by Provider] enoxaparin (LOVENOX) syringe 40 mg, 40 mg, subcutaneous, Daily-2100, Severo Merlos MD HYDROmorphone (DILAUDID) injection 0.2 mg, [...] mg, 8 mg, oral, Nightly PRN, Jorgito Singre MD, 8 mg at 10/13/23 2158 sodium chloride 0.9% flush 0.5-20 mL, 0.5-20 mL, intra-catheter, Q8H CAMMY, Ana Alfaro MD, 10 mL at 10/14/23 0636 sodium chloride 0.9% flush 0.5-20 mL, 0.5-20 mL, intra-catheter, PRN, Ana Alfaro MD sodium chloride 0.9% infusion, 75 mL/hr, intravenous, Continuous, [facility], Last Rate: 75 mL/hr at 10/14/23 [...] been discussed with the patient and/or their wine sales representative. All questions answered and they agree to proceed. ERY BAGGER ERY BAGGER * Plan of Care - Lyn Tolliver [...] Observed Strict intake and output. Monitored hematuria. ERY BAGGER * Consults, Subsequent - Vero Tolentino MD - 10/13/2023 5:57 PM GROCERY BAGGER Images from the original note were not [...] or concerns, please page Urology through the clutch operator. Vero Tolentino MD 10/13/2023 Cosigned by Fredrick Mcneil MD at 10/13/2023 11:37 PM GROCERY BAGGER ERY BAGGER ERY BAGGER ERY BAGGER * Initial Assessments - Torey Mckenna RN - 10/13/2023 2:42 PM GROCERY BAGGER CM Initial Assessment Interview Note Information Obtained From: Patient (10/13/231439) in the room Admission Source: from ED Impression: 73 yo male admitted for UTI. Plan Includes: to establish a safe discharge plan Primary Source of Transportation: Does the patient need discharge transport arranged?: (unknown, as DC location unknown) (10/13/231439) Health Insurance Coverage: [facility] Medicare Prescription Coverage: yes [facility] - [place], [place] - [address] [address] [address] [address] [facility] [id number] Primary Care Provider: Rl Medina DO Prior to Admission: Primary Caregiver: Self Support System: Spouse/Significant Other, Children Home Care Services: No Durable Medical Equipment: Cane (single prong), Walker (wheeled) Living Arrangements: Spouse/significant other Type of Residence: Private residence Steps in home?: Yes, Outside of home Number of steps outside: 4 steps Medication management: Independent (10/13/23 0440) SDOH: Transportation: Financial Resource: Housing: Social Connections: Food Insecurity: Alcohol Use: PHQ Screening Potential discharge needs include: needs pending Dialysis: no Behavioral Health Services: Behavioral Health Services: No (10/13/23 1440) Patient expects to be Discharged to: Private residence, (10/13/23 0440) Additional Information: PCP verified. Family at bedside, [...] Collaboration with patient, MD, direct care nurse, Exterior Interior Specialist, and other members of the health care team to assure needed interventions completed. 2. Return patient to optimal level of self-care post discharge. 3. Foreign Collection Clerk will follow for Discharge Planning - interventions [...] with the aftercare plan. Torey Mckenna RN ERY BAGGER * Hospital Course - Jimenez Henao MD - 10/13/2023 2:42 PM GROCERY BAGGER Hira Evans is a 73 y.o. male [...] ortho, his surgery as postponed to 10/23. ERY BAGGER ERY BAGGER ERY BAGGER ERY BAGGER ERY BAGGER ERY BAGGER ERY BAGGER ERY BAGGER ERY BAGGER ERY BAGGER ERY BAGGER * Plan of Care - Js Cardenas [...] medicine. Pt currently NPO. Family at bedside. ERY BAGGER * Post-Procedure Note - Ana Alfaro MD - 10/13/2023 9:46 AM CST Radiology Brief Post Procedure Note Attending: Dr. Mar Appellate Court Judge: Dr. Alfaro Sedation/Anesthesia: Min Sedation Pre-Op/Pre-Procedure Diagnosis: Hydroureteronephrosis with an obstructing stone Post-Op/Post-Procedure Diagnosis: Same Procedure Performed: Attempted PCN placement Procedure Findings: Non-dilated calyces with contrast washing down the ureter. Complications: None Estimated Blood Loss: None Specimens: None Condition: Stable Full report to follow. ERY BAGGER * Pre-Procedure Note - Ana Alfaro MD [...] Merlos MD, Last Rate: 100 mL/hr at 10/13/23646, 100 mL/hr at 10/13/23646 Physical exam: Physical [...] been discussed with the patient and/or their wine sales representative. All questions answered and they agree to proceed. ERY BAGGER * Assessment & Plan Note - Severo Merlos MD - 10/13/2023 5:39 AM GROCERY BAGGER Associated Problem(s): Prostate cancer (HCC) S/p postprostatectomy ERY BAGGER * Assessment & Plan Note - Marquise Lim MD - 10/13/2023 5:36 AM GROCERY BAGGER Associated Problem(s): HTN (hypertension) Hold home irbesartan Restart diltiazem xl ERY BAGGER ERY BAGGER ERY BAGGER * Assessment & Plan Note - Jimenez Henao MD - 10/13/2023 5:36 AM GROCERY BAGGER Associated Problem(s): Hydronephrosis with urinary obstruction due [...] though OK to de-escalate to oral regimen ERY BAGGER ERY BAGGER ERY BAGGER ERY BAGGER ERY BAGGER ERY BAGGER ERY BAGGER ERY BAGGER ERY BAGGER ERY BAGGER ERY BAGGER ERY BAGGER ERY BAGGER ERY BAGGER ERY BAGGER * Assessment & Plan Note - Jimenez Henao MD - 10/13/2023 5:36 AM GROCERY BAGGER Associated Problem(s): Lumbar radiculopathy He has been [...] every 4 hours Surgery rescheduled to 10/23/23 ERY BAGGER ERY BAGGER ERY BAGGER ERY BAGGER ERY BAGGER ERY BAGGER * Assessment & Plan Note - Jimenez Henao MD - 10/13/2023 5:35 AM GROCERY BAGGER Associated Problem(s): UTI (urinary tract infection) - Complicated UTI with the presence of left ureteral stone and Pyelitis - urine culture grew E-coli which is pansusceptible. - Discussion with urology and orthopedic surgery: continue Keflex 500 mg q6hr as it appears patientwill stay in-house until OR on 10/22-10/23 -Antibiotics as above. ERY BAGGER ERY BAGGER ERY BAGGER ERY BAGGER ERY BAGGER ERY BAGGER * Plan of Deny - Silvana Man RN - 10/13/2023 4:58 [...] new admit orders/call light,bed controls,meal times,televisions controls. ERY BAGGER * Perioperative Nursing Note - Philip Ha RN - 10/13/2023 3:41 AM GROCERY BAGGER Pt is being signed out by Anesthesia. ERY BAGGER * Op Note - Fredrick Mcneil MD [...] Consult IR for left nephrostomy tube placement ERY BAGGER * ED Re-evaluation Note - Genaro Chavira MD - 10/12/2023 11:05 PM GROCERY BAGGER ED Re-evaluation TRANSITION OF CARE: I, Genaro Chavira MD, am taking signout from the resident [...] Dispo: likely admission. ED Course as of 10/12/230 Time: 10/120 Comment: Attending physician assessment and plan: 73 [...] Harrington MD Kurtz, Camden Emmett, MD Resident 10/12/234 ERY BAGGER documented in this encounter Plan of Treatment Pending Results Name Type Priority Associated Diagnoses Date /Time Erythrocyte sedimentation rate Lab STAT 10/12/2023 7:50 PM GROCERY BAGGER CRP (acute phase) Lab STAT 023 7:50 PM GROCERY BAGGER Basic metabolic panel Lab Routine 7:06 PM GROCERY BAGGER Phosphorus Lab Routine 10/29/2023 9:5 3 PM GROCERY BAGGER Magnesium Lab Routine 10/29/2023 9:5 3 PM GROCERY BAGGER Scheduled Orders Name Type Priority Associated Diagnoses [...] 3 VIEWS Pending Discharge 10/30/2023 9:49 AM GROCERY BAGGER EGFR Routine 10/29/2023 9:53 PM GROCERY BAGGER DIFFERENTIAL AUTO Routine 10/29/2023 9:5 3 PM GROCERY BAGGER CBC WITH AUTO DIFFERENTIAL Routine 10/29/2023 9:53 PM GROCERY BAGGER PHOSPHORUS Routine 10/29/2023 9:53 PM GROCERY BAGGER MAGNESIUM Routine 10/29/2023 9:53 PM GROCERY BAGGER BASIC METABOLIC PANEL Routine 10/29/2023 9:53 PM GROCERY BAGGER EGFR Routine 10/29/2023 4:40 AM GROCERY BAGGER DIFFERENTIAL AUTO Routine 10/29/2023 4:4 0 AM GROCERY BAGGER CBC WITH AUTO DIFFERENTIAL Routine 10/29/2023 4:40 AM GROCERY BAGGER TYPE AND SCREEN Timed 10/29/2023 4:40 AM GROCERY BAGGER PHOSPHORUS Routine 10/29/2023 4:40 AM GROCERY BAGGER MAGNESIUM Routine 10/29/2023 4:40 AM GROCERY BAGGER BASIC METABOLIC PANEL Routine 10/29/2023 4:[address] HEAD WO CONTRAST IP Routine 10/28/2023 5 :58 PM GROCERY BAGGER EGFR Routine 10/27/2023 11:32 PM GROCERY BAGGER DIFFERENTIAL AUTO Routine 10/27/2023 11:32 PM GROCERY BAGGER CBC WITH AUTO DIFFERENTIAL Routine 10/27/2023 11:32 PM GROCERY BAGGER BASIC METABOLIC PANEL Routine 10/27/2023 11:32 PM GROCERY BAGGER CBC WITHOUT DIFFERENTIAL Timed 10/27/2023 4:37 AM GROCERY BAGGER PHOSPHORUS Routine 10/27/2023 4:37 AM GROCERY BAGGER MAGNESIUM Routine 10/27/2023 4:37 AM GROCERY BAGGER EGFR Routine 10/26/2023 8:07 PM GROCERY BAGGER DIFFERENTIAL AUTO Routine 10/26/2023 8:0 7 PM GROCERY BAGGER CBC WITH AUTO DIFFERENTIAL Routine 10/26/2023 8:07 PM GROCERY BAGGER BASIC METABOLIC PANEL Routine 10/26/2023 8:07 PM GROCERY BAGGER EGFR STAT 10/26/2023 5:28 PM GROCERY BAGGER APTT STAT 10/26/2023 5:28 PM GROCERY BAGGER PROTIME-INR STAT 10/26/2023 5:28 PM GROCERY BAGGER CBC WITHOUT DIFFERENTIAL STAT 10/26/2023 5:28 PM GROCERY BAGGER CREATININE STAT 10/26/2023 5:28 PM GROCERY BAGGER DIFFERENTIAL AUTO Timed 10/26/2023 2:4 3 PM GROCERY BAGGER CBC WITH AUTO DIFFERENTIAL Timed 10/26/2023 2:43 PM GROCERY BAGGER APTT STAT 10/26/2023 11:09 AM GROCERY BAGGER TRANSFUSE RED BLOOD CELLS Timed 10/26/2023 10:02 AM GROCERY BAGGER PREPARE RBC Timed 10/26/2023 4:46 AM GROCERY BAGGER TRANSFUSE RED BLOOD CELLS Timed 10/26/2023 3:55 AM GROCERY BAGGER PREPARE RBC Timed 10/26/2023 3:03 AM GROCERY BAGGER APTT STAT 10/26/2023 2:21 AM GROCERY BAGGER CBC WITHOUT DIFFERENTIAL Timed 10/26/2023 2:21 AM GROCERY BAGGER TYPE AND SCREEN Timed 10/26/2023 2:21 AM GROCERY BAGGER PHOSPHORUS Routine 10/26/2023 2:21 AM GROCERY BAGGER MAGNESIUM Routine 10/26/2023 2:21 AM GROCERY BAGGER POTASSIUM, WHOLE BLOOD STAT 10/25/2023 10:11 PM GROCERY BAGGER CRITICAL CARE Routine 10/25/2023 9:09 PM GROCERY BAGGER Cardiac arrest (HCC) EGFR Routine 10/25/2023 8:41 PM GROCERY BAGGER DIFFERENTIAL AUTO Routine 10/25/2023 8:4 1 PM GROCERY BAGGER CBC WITH AUTO DIFFERENTIAL Routine 10/25/2023 8:41 PM GROCERY BAGGER BASIC METABOLIC PANEL Routine 10/25/2023 8:41 PM GROCERY BAGGER POCT GLUCOSE DEVICE Routine 10/25/2023 7 :22 PM GROCERY BAGGER CRITICAL CARE Routine 10/25/2023 6:45 PM GROCERY BAGGER Seizures, generalized convulsive (HCC) APTT STAT 10/25/2023 4:59 PM GROCERY BAGGER POCT GLUCOSE DEVICE Routine 10/25/2023 3 :09 PM GROCERY BAGGER MRI BRAIN EPILEPSY W WO CONTRAST IP Routine 10/25/2023 1:55 PM GROCERY BAGGER POCT GLUCOSE DEVICE Routine 10/25/2023 10:57 AM GROCERY BAGGER DIFFERENTIAL AUTO Timed 10/25/2023 10:14 AM GROCERY BAGGER CBC WITH AUTO DIFFERENTIAL Timed 10/25/2023 10:14 AM GROCERY BAGGER APTT STAT 10/25/2023 10:14 AM GROCERY BAGGER XR CHEST 1 VIEW ED Urgent/IP Urgent 10/25/2023 9:52 AM GROCERY BAGGER POCT GLUCOSE DEVICE Routine 10/25/2023 6 :58 AM GROCERY BAGGER POCT GLUCOSE DEVICE Routine 10/25/2023 3 :44 AM GROCERY BAGGER APTT STAT 10/25/2023 3:14 AM GROCERY BAGGER POCT GLUCOSE DEVICE Routine 10/24/2023 11:45 PM GROCERY BAGGER CRITICAL CARE Routine 10/24/2023 11:00 PM GROCERY BAGGER Cardiac arrest (HCC) CALCIUM, IONIZED Routine 10/24/2023 9:11 PM GROCERY BAGGER POCT GLUCOSE DEVICE Routine 10/24/2023 7 :42 PM GROCERY BAGGER EGFR Routine 10/24/2023 7:06 PM GROCERY BAGGER DIFFERENTIAL AUTO Routine 10/24/2023 7:0 6 PM GROCERY BAGGER CBC WITH AUTO DIFFERENTIAL Routine 10/24/2023 7:06 PM GROCERY BAGGER APTT Routine 10/24/2023 7:06 PM GROCERY BAGGER PROTIME-INR Routine 10/24/2023 7:06 PM GROCERY BAGGER PHOSPHORUS Routine 10/24/2023 7:06 PM GROCERY BAGGER MAGNESIUM Routine 10/24/2023 7:06 PM GROCERY BAGGER BASIC METABOLIC PANEL Routine 10/24/2023 7:06 PM GROCERY BAGGER POCT GLUCOSE DEVICE Routine 10/24/2023 2 :58 PM GROCERY BAGGER APTT STAT 10/24/2023 12:18 PM GROCERY BAGGER TRANSTHORACIC ECHO (TTE) COMPLETE W DOPPLER/CF W CONTRAST STAT 10/24/2023 11:43 AM GROCERY BAGGER POCT GLUCOSE DEVICE Routine 10/24/2023 11:04 AM GROCERY BAGGER TROPONIN I HIGH-SENSITIVITY 6-HOUR Timed 10/24/2023 9:39 AM GROCERY BAGGER TROPONIN I HIGH-SENSITIVITY Routine 10/24/2023 8:32 AM GROCERY BAGGER POCT GLUCOSE DEVICE Routine 10/24/2023 7 :31 AM GROCERY BAGGER CRITICAL CARE Routine 10/24/2023 6:48 AM GROCERY BAGGER Cardiac arrest (HCC) TROPONIN I HIGH-SENSITIVITY 2-HOUR Timed 10/24/2023 5:38 AM GROCERY BAGGER APTT STAT 10/24/2023 5:38 AM GROCERY BAGGER EEG Routine 10/24/2023 5:02 AM GROCERY BAGGER ECG 12-LEAD STAT 10/24/2023 3:44 AM GROCERY BAGGER TROPONIN I HIGH-SENSITIVITY SERIES (BASELINE, 2HR, 4HR, 6HR) Routine 10/24/2023 3:38 AM GROCERY BAGGER LACTATE Routine 10/24/2023 3:38 AM GROCERY BAGGER CRITICAL RESULT CALLBACK CARDIO CHEM Routine 10/24/2023 3:38 AM GROCERY BAGGER POCT GLUCOSE DEVICE Routine 10/24/2023 3 :25 AM GROCERY BAGGER HIV 1/2 ANTIBODY PLUS P24 ANTIGEN Routine 10/24/2023 12:20 AM GROCERY BAGGER POCT GLUCOSE DEVICE Routine 10/24/2023 12:20 AM GROCERY BAGGER APTT STAT 10/24/2023 12:20 AM GROCERY BAGGER PROTIME-INR STAT 10/24/2023 12:20 AM GROCERY BAGGER CBC WITHOUT DIFFERENTIAL STAT 10/24/2023 12:[address] CHEST PE ABDOMEN PELVIS W CONTRAST ED Urgent/IP Urgent 10/23/2023 11:[address] HEAD WO CONTRAST Critical/Life-Th reatening 10/23/2023 11:48 PM GROCERY BAGGER CRITICAL CARE Routine 10/23/2023 11:47 PM GROCERY BAGGER Cardiac arrest (HCC) DIFFERENTIAL AUTO Routine 10/23/2023 11:03 PM GROCERY BAGGER CALCIUM, IONIZED STAT 10/23/2023 11:03 PM GROCERY BAGGER CBC WITH AUTO DIFFERENTIAL Routine 10/23/2023 11:03 PM GROCERY BAGGER MANUAL DIFFERENTIAL Routine 10/23/2023 11:03 PM GROCERY BAGGER BLOOD GAS, ARTERIAL STAT 10/23/2023 11:03 PM GROCERY BAGGER EGFR STAT 10/23/2023 11:02 PM GROCERY BAGGER APTT STAT 10/23/2023 11:02 PM GROCERY BAGGER PROTIME-INR STAT 10/23/2023 11:02 PM GROCERY BAGGER PHOSPHORUS STAT 10/23/2023 11:02 PM GROCERY BAGGER MAGNESIUM STAT 10/23/2023 11:02 PM GROCERY BAGGER LIPID PANEL STAT 10/23/2023 11:02 PM GROCERY BAGGER COMPREHENSIVE METABOLIC PANEL STAT 10/23/2023 11:02 PM GROCERY BAGGER POC BLOOD GAS AND CHEMISTRIES, ARTERIAL Routine 10/23/2023 10:39 PM GROCERY BAGGER POC BLOOD GAS AND CHEMISTRIES, ARTERIAL Routine 10/23/2023 10:07 PM GROCERY BAGGER EGFR STAT 10/23/2023 9:52 PM GROCERY BAGGER CBC WITHOUT DIFFERENTIAL STAT 10/23/2023 9:52 PM GROCERY BAGGER BASIC METABOLIC PANEL STAT 10/23/2023 9:52 PM GROCERY BAGGER POC BLOOD GAS AND CHEMISTRIES, VENOUS Routine 10/23/2023 9:50 PM GROCERY BAGGER FL FLUOROSCOPY < 1 HOUR IP Routine 10/23/2023 8:45 PM GROCERY BAGGER SPINAL CORD MONITORING 10/23/2023 4:26 PM GROCERY BAGGER Lumbar radiculopathy Case Notes 10/22: Cell Saver Audit, case msg to [facility] 0905/No Special Needs OSI- 6 post, c-arm, SCM, prone view pillow, autograft, allograft (30cc cancellous chips), Globus Creo PSI, Globus Altera, Globus Sable LAMINECTOMY LUMBAR - POSTERIOR 10/23/2023 4:26 PM GROCERY BAGGER Lumbar radiculopathy Case Notes 10/22: Cell Saver Audit, case msg to [facility] 09/No Special Needs OSI- 6 post, c-arm, SCM, prone view pillow, autograft, allograft (30cc cancellous chips), Globus Creo PSI, Globus Altera, Globus Sable FUSION SPINAL - POSTERIOR LUMBAR/THORACIC WITH INSTRUMENTATION 10/23/2023 4:26 PM GROCERY BAGGER Lumbar radiculopathy Case Notes 10/22: Cell Saver Audit, case msg to [facility] 0905/No Special Needs OSI- 6 post, c-arm, SCM, prone view pillow, autograft, allograft (30cc cancellous chips), Globus Creo PSI, Globus Altera, Globus Sable EGFR Routine 10/22/2023 9:39 PM GROCERY BAGGER DIFFERENTIAL AUTO Routine 10/22/2023 9:3 9 PM GROCERY BAGGER CBC WITH AUTO DIFFERENTIAL Routine 10/22/2023 9:39 PM GROCERY BAGGER PROTIME-INR Routine 10/22/2023 9:39 PM GROCERY BAGGER TYPE AND SCREEN Timed 10/22/2023 9:39 PM GROCERY BAGGER BASIC METABOLIC PANEL Routine 10/22/2023 9:39 PM GROCERY BAGGER XR CHEST 1 VIEW IP Routine 10/22/2023 6:24 AM GROCERY BAGGER EGFR Routine 10/21/2023 10:52 PM GROCERY BAGGER DIFFERENTIAL AUTO Routine 10/21/2023 10:52 PM GROCERY BAGGER CBC WITH AUTO DIFFERENTIAL Routine 10/21/2023 10:52 PM GROCERY BAGGER BASIC METABOLIC PANEL Routine 10/21/2023 10:52 PM GROCERY BAGGER EGFR Routine 10/20/2023 9:38 PM GROCERY BAGGER DIFFERENTIAL AUTO Routine 10/20/2023 9:3 8 PM GROCERY BAGGER CBC WITH AUTO DIFFERENTIAL Routine 10/20/2023 9:38 PM GROCERY BAGGER BASIC METABOLIC PANEL Routine 10/20/2023 9:38 PM GROCERY BAGGER EGFR Routine 10/19/2023 9:11 PM GROCERY BAGGER DIFFERENTIAL AUTO Routine 10/19/2023 9:1 1 PM GROCERY BAGGER CBC WITH AUTO DIFFERENTIAL Routine 10/19/2023 9:11 PM GROCERY BAGGER BASIC METABOLIC PANEL Routine 10/19/2023 9:11 PM GROCERY BAGGER EGFR Routine 10/18/2023 9:29 PM GROCERY BAGGER DIFFERENTIAL AUTO Routine 10/18/2023 9:2 9 PM GROCERY BAGGER CBC WITH AUTO DIFFERENTIAL Routine 10/18/2023 9:29 PM GROCERY BAGGER BASIC METABOLIC PANEL Routine 10/18/2023 9:29 PM GROCERY BAGGER DEXA AXIAL SKELETON BONE DENSITY 1 OR MORE SITES IP Routine 10/18/2023 12:45 PM GROCERY BAGGER FL FLUOROSCOPY < 1 HOUR IP Routine 10/18/2023 11:27 AM GROCERY BAGGER EGFR Routine 10/17/2023 10:52 PM GROCERY BAGGER DIFFERENTIAL AUTO Routine 10/17/2023 10:52 PM GROCERY BAGGER CBC WITH AUTO DIFFERENTIAL Routine 10/17/2023 10:52 PM GROCERY BAGGER APTT Routine 10/17/2023 10:52 PM GROCERY BAGGER PROTIME-INR Routine 10/17/2023 10:52 PM GROCERY BAGGER BASIC METABOLIC PANEL Routine 10/17/2023 10:[address] UROGRAM IP Routine 10/16/2023 12:36 PM GROCERY BAGGER PERCUTANEOUS NEPHROSTOMY PCN LEFT IP Routine 10/14/2023 1:38 PM GROCERY BAGGER URINALYSIS AND REFLEX TO MICROSCOPIC AND CULTURE Routine 10/14/2023 1:35 PM GROCERY BAGGER URINALYSIS, MICROSCOPIC ONLY Routine 10/14/2023 1:35 PM GROCERY BAGGER URINE CULTURE Routine 10/14/2023 1:35 PM GROCERY BAGGER US KIDNEY COMPLETE Timed 10/14/2023 7: 15 AM GROCERY BAGGER EGFR Routine 10/14/2023 6:30 AM GROCERY BAGGER DIFFERENTIAL AUTO Routine 10/14/2023 6:3 0 AM GROCERY BAGGER CBC WITH AUTO DIFFERENTIAL Routine 10/14/2023 6:30 AM GROCERY BAGGER COMPREHENSIVE METABOLIC PANEL Routine 10/14/2023 6:30 AM GROCERY BAGGER BLOOD CULTURE Routine 10/13/2023 10:59 PM GROCERY BAGGER BLOOD CULTURE Routine 10/13/2023 11:01 AM GROCERY BAGGER FL FLUOROSCOPY < 1 HOUR ED Urgent/IP Urgent 10/13/2023 9:48 AM GROCERY BAGGER EGFR Routine 10/13/2023 6:50 AM GROCERY BAGGER DIFFERENTIAL AUTO Routine 10/13/2023 6:5 0 AM GROCERY BAGGER CBC WITH AUTO DIFFERENTIAL Routine 10/13/2023 6:50 AM GROCERY BAGGER COMPREHENSIVE METABOLIC PANEL Routine 10/13/2023 6:50 AM GROCERY BAGGER FL FLUOROSCOPY < 1 HOUR IP Routine 10/13/2023 3:00 AM GROCERY BAGGER MRI SPINE TOTAL COMPLETE W WO CONTRAST ED 10/12/2023 11:44 PM GROCERY BAGGER BLOOD CULTURE STAT 10/12/2023 9:[address] CHEST ABDOMEN PELVIS W CONTRAST ED 10/12/2023 9:00 PM GROCERY BAGGER LACTATE STAT 10/12/2023 7:50 PM GROCERY BAGGER EGFR STAT 10/12/2023 7:50 PM GROCERY BAGGER DIFFERENTIAL AUTO STAT 10/12/2023 7:5 0 PM GROCERY BAGGER URINALYSIS AND REFLEX TO MICROSCOPIC AND CULTURE STAT 10/12/2023 7:50 PM GROCERY BAGGER CBC WITH AUTO DIFFERENTIAL STAT 10/12/2023 7:50 PM GROCERY BAGGER BLOOD CULTURE STAT 10/12/2023 7:50 PM GROCERY BAGGER URINALYSIS, MICROSCOPIC ONLY STAT 10/12/2023 7:50 PM GROCERY BAGGER ERYTHROCYTE SEDIMENTATION RATE STAT 10/12/2023 7:50 PM GROCERY BAGGER URINE CULTURE STAT 10/12/2023 7:50 PM GROCERY BAGGER CRP (ACUTE PHASE) STAT 10/12/2023 7:5 0 PM GROCERY BAGGER BASIC METABOLIC PANEL STAT 10/12/2023 7:50 PM GROCERY BAGGER documented in this encounter Results * XR Spine Lumbar 2 or 3 Views (10/30/2023 9:49 AM GROCERY BAGGER) Anatomical Region Laterality Modality Spine N/A Computed Radiogr aphy 10/30/2023 10:1 9 AM GROCERY BAGGER Impressions 10/30/2023 10:25 AM GROCERY BAGGER 1. ??Posterior instrumented spinal fusion from L4 to L5 with combined interbody fusion. Dictated by: Tamia Rojas MD The radiology attending physician has personally reviewed this study, and had reviewed and/or edited this written report and agrees with it. Electronically signed by: Dmitry Navarro MD Narrative 10/30/2023 10:25 AM GROCERY BAGGER EXAMINATION: XR SPINE LUMBAR 2 OR 3 [...] it. Electronically signed by: Dmitry Navarro MD Rafael Rodriguez DRAWER IN DOBBY LOOM IMG XR PROCEDURES Final Resu lt * eGFR (10/29/2023 9:53 PM GROCERY BAGGER) eGFR 85 >=60 mL/min/1. 73 m2 [facility] Comment: Interpretive Data Reference Interval Normal [...] last reviewed 2021. Blood 10/29/2023 9:53 PM GROCERY BAGGER 10/29/2023 10:11 PM GROCERY BAGGER Tia Nolan NP LAB BLOOD ORDERABLES F inal Result Performing Organization Address [facility] de Phone Number [facility] [place] [address] * Magnesium (10/29/2023 9:53 PM GROCERY BAGGER) Magnesium 1.7 1.4 - 2.5 mg/dL [facility] Blood 10/29/2023 9:53 PM GROCERY BAGGER 10/29/2023 10:11 PM GROCERY BAGGER Hayder Vu Jr., MD LAB BLOOD ORDERABLE S Final Result Performing Organization Address [facility] de Phone Number [facility] [place] [address] * Phosphorus (10/29/2023 9:53 PM GROCERY BAGGER) Phosphorus, pl 2.6 2.3 - 4.5 mg/dL [facility] Blood 10/29/2023 9:53 PM GROCERY BAGGER 10/29/2023 10:11 PM GROCERY BAGGER Hayder Vu Jr., MD LAB BLOOD ORDERABLE S Final Result [facility] [place] [address] * Differential, auto (10/29/2023 9:53 PM GROCERY BAGGER) Neutrophil abs 4.9 1.5 - 6.5 K/cumm [facility] Imm gran abs 0.1 0.0 - 0.1 K/cumm [facility] Lymphocyte abs 1.3 0.8 - 3.3 K/cumm [facility] Monocyte abs 0.7 0.2 - 0.8 K/cumm [facility] Eosinophil abs 0.2 0.0 - 0.5 K/cumm [facility] Basophil abs 0.0 0.0 - 0.1 K/cumm [facility] Neutrophil pct 68.7 % [facility] Comment: Interpretive Data Percent cell count reference ranges are not reported, since discordance with absolute values may lead to misinterpretation of CBC data. Current Interpretive Data was last revised on 2018. Imm gran pct 1.0 % [facility] Comment: Interpretive Data Percent cell count reference ranges are not reported, since discordance with absolute values may lead to misinterpretation of CBC data. Current Interpretive Data was last revised on 2018. Lymphocyte pct 18.3 % [facility] Comment: Interpretive Data Percent cell count reference ranges are not reported, since discordance with absolute values may lead to misinterpretation of CBC data. Current Interpretive Data was last revised on 2018. Monocyte pct 9.7 % [facility] Comment: Interpretive Data Percent cell count reference ranges are not reported, since discordance with absolute values may lead to misinterpretation of CBC data. Current Interpretive Data was last revised on 2018. Eosinophil pct 2.2 % [facility] Comment: Interpretive Data Percent cell count reference ranges are not reported, since discordance with absolute values may lead to misinterpretation of CBC data. Current Interpretive Data was last revised on 2018. Basophil pct 0.1 % [facility] Comment: Interpretive Data Percent cell count reference ranges are not reported, since discordance with absolute values may lead to misinterpretation of CBC data. Current Interpretive Data was last revised on 2018. Blood 10/29/2023 9:53 PM GROCERY BAGGER 10/29/2023 10:11 PM GROCERY BAGGER Tia Nolan DRAWER IN DOBBY LOOM LAB BLOOD ORDERABLES F inal Result Performing Organization Address [facility] Co de Phone Number [facility] [place] [address] * (ABNORMAL) CBC with auto differential (10/29/2023 9:53 PM GROCERY BAGGER) [facility] WBC 7.2 3.8 - 9.9 K/cumm [facility] Hgb 9.4(L) 13.0 - 17.5 g/dL [facility] Hct 28.0(L) 38.9 - 50.3 % [facility] Plt 313 150 - 400 K/cumm [facility] MPV 10.7 9.1 - 12.3 fL [facility] RBC 3.00(L) 4.30 - 5.80 M/cumm [facility] MCV 93.3 81.3 - 96.4 fL [facility] MCH 31.3 27.1 - 33.3 pg [facility] MCHC 33.6 32.3 - 35.7 g/dL [facility] RDW CV 13.7 11.1 - 14.9 % [facility] RDW SD 46.5 35.7 - 48.1 fL [facility] NRBC abs 0.00 0.00 - 0.01 K/cumm [facility] Blood 10/29/2023 9:53 PM GROCERY BAGGER 10/29/2023 10:11 PM GROCERY BAGGER Tia Nolan DRAWER IN DOBBY LOOM LAB BLOOD ORDERABLES F inal Result Performing Organization Address [facility] Co de Phone Number [facility] [place] [address] * (ABNORMAL) Basic metabolic panel (10/29/2023 9:53 PM GROCERY BAGGER) Pathologist [facility] Sodium 137 135 - 145 mmol/L [facility] Potassium, pl 3.7 3.3 - 4.9 mmol/L [facility] Chloride 103 97 - 110 mmol/L [facility] CO2 24 22 - 32 mmol/L [facility] Anion gap 10 2 - 15 mmol/L [facility] BUN 10 6 - 25 mg/dL [facility] Creatinine 0.95 0.80 - 1.30 mg/dL [facility] Glucose 108 70 - 199 mg/dL [facility] Comment: Interpretive Data Fasting glucose >/= [...] 2022. Calcium 8.1(L) 8.5 - 10.3 mg/dL [facility] Blood 10/29/2023 9:53 PM GROCERY BAGGER 10/29/2023 10:11 PM GROCERY BAGGER us Tia Nolan DRAWER IN DOBBY LOOM LAB BLOOD ORDERABLES F inal Result [facility] [place] [address] * eGFR (10/29/2023 4:40 AM GROCERY BAGGER) [facility] eGFR >90 >=60 mL/min/1. 73 m2 [facility] Comment: Interpretive Data Reference Interval Normal [...] last reviewed 2021. Blood 10/29/2023 4:40 AM GROCERY BAGGER 10/29/2023 5:04 AM GROCERY BAGGER Tia Nolan DRAWER IN DOBBY LOOM LAB BLOOD ORDERABLES F inal Result [facility] [place] [address] * Differential, auto (10/29/2023 4:40 AM GROCERY BAGGER) Pathologist [facility] Neutrophil abs 3.6 1.5 - 6.5 K/cumm [facility] Imm gran abs 0.1 0.0 - 0.1 K/cumm [facility] Lymphocyte abs 1.0 0.8 - 3.3 K/cumm [facility] Monocyte abs 0.6 0.2 - 0.8 K/cumm [facility] Eosinophil abs 0.2 0.0 - 0.5 K/cumm [facility] Basophil abs 0.0 0.0 - 0.1 K/cumm [facility] Neutrophil pct 66.1 % [facility] Comment: Interpretive Data Percent cell count reference ranges are not reported, since discordance with absolute values may lead to misinterpretation of CBC data. Current Interpretive Data was last revised on 2018. Imm gran pct 1.1 % [facility] Comment: Interpretive Data Percent cell count reference ranges are not reported, since discordance with absolute values may lead to misinterpretation of CBC data. Current Interpretive Data was last revised on 2018. Lymphocyte pct 18.9 % [facility] Comment: Interpretive Data Percent cell count reference ranges are not reported, since discordance with absolute values may lead to misinterpretation of CBC data. Current Interpretive Data was last revised on 2018. Monocyte pct 10.4 % [facility] Comment: Interpretive Data Percent cell count reference ranges are not reported, since discordance with absolute values may lead to misinterpretation of CBC data. Current Interpretive Data was last revised on 2018. Eosinophil pct 3.1 % [facility] Comment: Interpretive Data Percent cell count reference ranges are not reported, since discordance with absolute values may lead to misinterpretation of CBC data. Current Interpretive Data was last revised on 2018. Basophil pct 0.4 % [facility] Comment: Interpretive Data Percent cell count reference ranges are not reported, since discordance with absolute values may lead to misinterpretation of CBC data. Current Interpretive Data was last revised on 2018. Blood 10/29/2023 4:40 AM GROCERY BAGGER 10/29/2023 5:05 AM GROCERY BAGGER Tia Nolan NP LAB BLOOD ORDERABLES F inal Result [facility] [place] [address] * Type and screen (10/29/2023 4:40 AM GROCERY BAGGER) Jigna, indirect Negative ABO Rh O Positive [facility] Blood 10/29/2023 4:40 AM GROCERY BAGGER 10/29/2023 5:09 AM GROCERY BAGGER Narrative [facility] - 10/29/2023 6:37 AM GROCERY BAGGER Has the patient had Daratumumab or Isatuximab in the past 6 months?->Unknown Tia Alla Nolan DRAWER IN DOBBY LOOM LAB BLOOD BANK TEST OR DERABLES Final Result Performing Organization Address [facility] de Phone Number [facility] [place] [address] * (ABNORMAL) CBC with auto differential (10/29/2023 4:40 AM GROCERY BAGGER) [facility] WBC 5.4 3.8 - 9.9 K/cumm [facility] Hgb 9.5(L) 13.0 - 17.5 g/dL [facility] Hct 27.9(L) 38.9 - 50.3 % [facility] Plt 295 150 - 400 K/cumm [facility] MPV 10.8 9.1 - 12.3 fL [facility] RBC 3.03(L) 4.30 - 5.80 M/cumm [facility] MCV 92.1 81.3 - 96.4 fL [facility] MCH 31.4 27.1 - 33.3 pg [facility] MCHC 34.1 32.3 - 35.7 g/dL [facility] RDW CV 13.6 11.1 - 14.9 % [facility] RDW SD 45.1 35.7 - 48.1 fL [facility] NRBC abs 0.00 0.00 - 0.01 K/cumm [facility] Blood 10/29/2023 4:40 AM GROCERY BAGGER 10/29/2023 5:05 AM GROCERY BAGGER Tia Nolan DRAWER IN DOBBY LOOM LAB BLOOD ORDERABLES F inal Result Performing Organization Address [facility]/ZIP Co de Phone Number [facility] [place] [address] * (ABNORMAL) Basic metabolic panel (10/29/2023 4:40 AM GROCERY BAGGER) [facility] Sodium 139 135 - 145 mmol/L [facility] Potassium, pl 3.5 3.3 - 4.9 mmol/L [facility] Chloride 104 97 - 110 mmol/L [facility] CO2 23 22 - 32 mmol/L [facility] Anion gap 12 2 - 15 mmol/L [facility] BUN 11 6 - 25 mg/dL [facility] Creatinine 0.88 0.80 - 1.30 mg/dL [facility] Glucose 112 70 - 199 mg/dL [facility] Comment: Interpretive Data Fasting glucose >/= [...] 2022. Calcium 8.2(L) 8.5 - 10.3 mg/dL [facility] Blood 10/29/2023 4:40 AM GROCERY BAGGER 10/29/2023 5:04 AM GROCERY BAGGER Tia Nolan DRAWER IN DOBBY LOOM LAB BLOOD ORDERABLES F inal Result [facility] [place] [address] * Phosphorus (10/29/2023 4:40 AM GROCERY BAGGER) Phosphorus, pl 2.7 2.3 - 4.5 mg/dL [facility] Blood 10/29/2023 4:40 AM GROCERY BAGGER 10/29/2023 5:05 AM GROCERY BAGGER Tia Nolan DRAWER IN DOBBY LOOM LAB BLOOD ORDERABLES F inal Result [facility] [place] [address] * Magnesium (10/29/2023 4:40 AM GROCERY BAGGER) Magnesium 1.8 1.4 - 2.5 mg/dL [facility] Blood 10/29/2023 4:40 AM GROCERY BAGGER 10/29/2023 5:05 AM GROCERY BAGGER us Tia Gold An DRAWER IN DOBBY LOOM LAB BLOOD ORDERABLES F inal Result [facility] [place] [address] * CT Head WO Contrast (10/28/2023 5:58 PM GROCERY BAGGER) Anatomical Region Laterality Modality Head and Neck N/A Computed Tomogra phy 10/28/2023 8:46 PM GROCERY BAGGER Impressions 10/29/2023 10:19 AM GROCERY BAGGER 1. ??Thin bilateral subdural collections along the [...] Landen Perez M.D. Narrative 10/29/2023 10:19 AM GROCERY BAGGER EXAMINATION: CT head without contrast HISTORY: Subdural [...] by: Landen Perez M.D. Kasey Rutledge NP IMG CT PROCEDURES Final Result * eGFR (10/27/2023 11:32 PM GROCERY BAGGER) eGFR >90 >=60 mL/min/1. 73 m2 [facility] Comment: Interpretive Data Reference Interval Normal [...] reviewed 2021. Blood 10/27/2023 11:3 2 PM GROCERY BAGGER 10/28/2023 12:27 AM GROCERY BAGGER Tia Nolan DRAWER IN DOBBY LOOM LAB BLOOD ORDERABLES F inal Result [facility] [place] [address] * Differential, auto (10/27/2023 11:32 PM GROCERY BAGGER) Pathologist [facility] Neutrophil abs 3.9 1.5 - 6.5 K/cumm [facility] Imm gran abs 0.1 0.0 - 0.1 K/cumm [facility] Lymphocyte abs 1.2 0.8 - 3.3 K/cumm [facility] Monocyte abs 0.6 0.2 - 0.8 K/cumm [facility] Eosinophil abs 0.2 0.0 - 0.5 K/cumm [facility] Basophil abs 0.0 0.0 - 0.1 K/cumm [facility] Neutrophil pct 65.9 % [facility] Comment: Interpretive Data Percent cell count reference ranges are not reported, since discordance with absolute values may lead to misinterpretation of CBC data. Current Interpretive Data was last revised on 2018. Imm gran pct 0.8 % [facility] Comment: Interpretive Data Percent cell count reference ranges are not reported, since discordance with absolute values may lead to misinterpretation of CBC data. Current Interpretive Data was last revised on 2018. Lymphocyte pct 20.3 % [facility] Comment: Interpretive Data Percent cell count reference ranges are not reported, since discordance with absolute values may lead to misinterpretation of CBC data. Current Interpretive Data was last revised on 2018. Monocyte pct 9.6 % [facility] Comment: Interpretive Data Percent cell count reference ranges are not reported, since discordance with absolute values may lead to misinterpretation of CBC data. Current Interpretive Data was last revised on 2018. Eosinophil pct 3.2 % [facility] Comment: Interpretive Data Percent cell count reference ranges are not reported, since discordance with absolute values may lead to misinterpretation of CBC data. Current Interpretive Data was last revised on 2018. Basophil pct 0.2 % [facility] Comment: Interpretive Data Percent cell count reference ranges are not reported, since discordance with absolute values may lead to misinterpretation of CBC data. Current Interpretive Data was last revised on 2018. Blood 10/27/2023 11:3 2 PM GROCERY BAGGER 10/28/2023 12:26 AM GROCERY BAGGER us Tia Nolan DRAWER IN DOBBY LOOM LAB BLOOD ORDERABLES F inal Result [facility] [place] [address] * (ABNORMAL) CBC with auto differential (10/27/2023 11:32 PM GROCERY BAGGER) Pathologist [facility] WBC 6.0 3.8 - 9.9 K/cumm [facility] Hgb 8.6(L) 13.0 - 17.5 g/dL [facility] Hct 25.3(L) 38.9 - 50.3 % [facility] Plt 295 150 - 400 K/cumm [facility] MPV 11.2 9.1 - 12.3 fL [facility] RBC 2.78(L) 4.30 - 5.80 M/cumm [facility] MCV 91.0 81.3 - 96.4 fL [facility] MCH 30.9 27.1 - 33.3 pg [facility] MCHC 34.0 32.3 - 35.7 g/dL [facility] RDW CV 13.2 11.1 - 14.9 % [facility] RDW SD 44.2 35.7 - 48.1 fL [facility] NRBC abs 0.00 0.00 - 0.01 K/cumm [facility] Blood 10/27/2023 11:3 2 PM GROCERY BAGGER 10/28/2023 12:26 AM GROCERY BAGGER us Tia Nolan DRAWER IN DOBBY LOOM LAB BLOOD ORDERABLES F inal Result [facility] [place] [address] * (ABNORMAL) Basic metabolic panel (10/27/2023 11:32 PM GROCERY BAGGER) Sodium 135 135 - 145 mmol/L [facility] Potassium, pl 3.7 3.3 - 4.9 mmol/L [facility] Chloride 103 97 - 110 mmol/L [facility] CO2 26 22 - 32 mmol/L [facility] Anion gap 6 2 - 15 mmol/L [facility] BUN 11 6 - 25 mg/dL [facility] Creatinine 0.88 0.80 - 1.30 mg/dL [facility] Glucose 108 70 - 199 mg/dL [facility] Comment: Interpretive Data Fasting glucose >/= [...] 2022. Calcium 8.0(L) 8.5 - 10.3 mg/dL [facility] Blood 10/27/2023 11:3 2 PM GROCERY BAGGER 10/28/2023 12:27 AM GROCERY BAGGER Tia Nolan DRAWER IN DOBBY LOOM LAB BLOOD ORDERABLES F inal Result Performing Organization Address [facility] de Phone Number [facility] [place] [address] * Phosphorus (10/27/2023 4:37 AM GROCERY BAGGER) Pathologist [facility] Phosphorus, pl 2.5 2.3 - 4.5 mg/dL [facility] Blood 10/27/2023 4:37 AM GROCERY BAGGER 10/27/2023 4:59 AM GROCERY BAGGER Tia Nolan DRAWER IN DOBBY LOOM LAB BLOOD ORDERABLES F inal Result Performing Organization Address [facility] Phone Number [facility] [place] [address] * Magnesium (10/27/2023 4:37 AM GROCERY BAGGER) [facility] Magnesium 1.9 1.4 - 2.5 mg/dL [facility] Blood 10/27/2023 4:37 AM GROCERY BAGGER 10/27/2023 4:59 AM GROCERY BAGGER Tia Nolan DRAWER IN DOBBY LOOM LAB BLOOD ORDERABLES F inal Result Performing Organization Address [facility] de Phone Number [facility] [place] [address] * (ABNORMAL) CBC without differential (10/27/2023 4:37 AM GROCERY BAGGER) [facility] WBC 7.1 3.8 - 9.9 K/cumm [facility] Hgb 9.1(L) 13.0 - 17.5 g/dL [facility] Hct 26.1(L) 38.9 - 50.3 % [facility] Plt 291 150 - 400 K/cumm [facility] MPV 11.0 9.1 - 12.3 fL [facility] RBC 2.93(L) 4.30 - 5.80 M/cumm [facility] MCV 89.1 81.3 - 96.4 fL [facility] MCH 31.1 27.1 - 33.3 pg [facility] MCHC 34.9 32.3 - 35.7 g/dL [facility] RDW CV 13.4 11.1 - 14.9 % [facility] RDW SD 43.7 35.7 - 48.1 fL [facility] NRBC abs 0.00 0.00 - 0.01 K/cumm [facility] Blood 10/27/2023 4:37 AM GROCERY BAGGER 10/27/2023 5:07 AM GROCERY BAGGER Narrative [facility] - 10/27/2023 5:17 AM GROCERY BAGGER While on heparin infusion Tia Nolan NP LAB BLOOD ORDERABLES F inal Result Performing Organization Address City/[facility] Co de Phone Number [facility] [place] [address] * Transfuse RBC (10/26/2023 10:32 PM GROCERY BAGGER) Blood us Hayder Vu Jr., MD BLOOD TRANSFUSION O RDERABLES Final Result Performing Organization Address City/[facility]/ZIP Co de Phone Number [facility] [place] [address] * Transfuse RBC: 1 Units (10/26/2023 10:32 PM GROCERY BAGGER) Blood Hayder Vu Jr., MD BLOOD TRANSFUSION O RDERABLES Final Result * eGFR (10/26/2023 8:07 PM GROCERY BAGGER) [facility] eGFR >90 >=60 mL/min/1. 73 m2 [facility] Comment: Interpretive Data Reference Interval Normal [...] last reviewed 2021. Blood 10/26/2023 8:07 PM GROCERY BAGGER 10/26/2023 9:01 PM GROCERY BAGGER us Tia Nolan DRAWER IN DOBBY LOOM LAB BLOOD ORDERABLES F inal Result [facility] [place] [address] * (ABNORMAL) Differential, auto (10/26/2023 8:07 PM GROCERY BAGGER) Neutrophil abs 6.7(H) 1.5 - 6.5 K/cumm [facility] Imm gran abs 0.1 0.0 - 0.1 K/cumm [facility] Lymphocyte abs 1.1 0.8 - 3.3 K/cumm [facility] Monocyte abs 0.7 0.2 - 0.8 K/cumm [facility] Eosinophil abs 0.1 0.0 - 0.5 K/cumm [facility] Basophil abs 0.0 0.0 - 0.1 K/cumm [facility] Neutrophil pct 77.6 % [facility] Comment: Interpretive Data Percent cell count reference ranges are not reported, since discordance with absolute values may lead to misinterpretation of CBC data. Current Interpretive Data was last revised on 2018. Imm gran pct 0.6 % [facility] Comment: Interpretive Data Percent cell count reference ranges are not reported, since discordance with absolute values may lead to misinterpretation of CBC data. Current Interpretive Data was last revised on 2018. Lymphocyte pct 12.5 % [facility] Comment: Interpretive Data Percent cell count reference ranges are not reported, since discordance with absolute values may lead to misinterpretation of CBC data. Current Interpretive Data was last revised on 2018. Monocyte pct 7.8 % [facility] Comment: Interpretive Data Percent cell count reference ranges are not reported, since discordance with absolute values may lead to misinterpretation of CBC data. Current Interpretive Data was last revised on 2018. Eosinophil pct 1.0 % [facility] Comment: Interpretive Data Percent cell count reference ranges are not reported, since discordance with absolute values may lead to misinterpretation of CBC data. Current Interpretive Data was last revised on 2018. Basophil pct 0.5 % [facility] Comment: Interpretive Data Percent cell count reference ranges are not reported, since discordance with absolute values may lead to misinterpretation of CBC data. Current Interpretive Data was last revised on 2018. Blood 10/26/2023 8:07 PM GROCERY BAGGER 10/26/2023 9:00 PM GROCERY BAGGER us Tia Nolan DRAWER IN DOBBY LOOM LAB BLOOD ORDERABLES F inal Result [facility] [place] [address] * (ABNORMAL) CBC with auto differential (10/26/2023 8:07 PM GROCERY BAGGER) WBC 8.6 3.8 - 9.9 K/cumm [facility] Hgb 9.5(L) 13.0 - 17.5 g/dL [facility] Hct 27.6(L) 38.9 - 50.3 % [facility] Plt 313 150 - 400 K/cumm [facility] MPV 11.2 9.1 - 12.3 fL [facility] RBC 3.08(L) 4.30 - 5.80 M/cumm [facility] MCV 89.6 81.3 - 96.4 fL [facility] MCH 30.8 27.1 - 33.3 pg [facility] MCHC 34.4 32.3 - 35.7 g/dL [facility] RDW CV 13.3 11.1 - 14.9 % [facility] RDW SD 43.5 35.7 - 48.1 fL [facility] NRBC abs 0.00 0.00 - 0.01 K/cumm [facility] Blood 10/26/2023 8:07 PM GROCERY BAGGER 10/26/2023 9:00 PM GROCERY BAGGER us Tia Nolan DRAWER IN DOBBY LOOM LAB BLOOD ORDERABLES F inal Result [facility] [place] [address] * (ABNORMAL) Basic metabolic panel (10/26/2023 8:07 PM GROCERY BAGGER) Sodium 137 135 - 145 mmol/L [facility] Potassium, pl 3.5 3.3 - 4.9 mmol/L [facility] Chloride 104 97 - 110 mmol/L [facility] CO2 26 22 - 32 mmol/L [facility] Anion gap 7 2 - 15 mmol/L [facility] BUN 11 6 - 25 mg/dL [facility] Creatinine 0.86 0.80 - 1.30 mg/dL [facility] Glucose 132 70 - 199 mg/dL [facility] Comment: Interpretive Data Fasting glucose >/= [...] 2022. Calcium 8.2(L) 8.5 - 10.3 mg/dL [facility] Blood 10/26/2023 8:07 PM GROCERY BAGGER 10/26/2023 9:01 PM GROCERY BAGGER us Tia Nolan DRAWER IN DOBBY LOOM LAB BLOOD ORDERABLES F inal Result [facility] [place] [address] * eGFR (10/26/2023 5:28 PM GROCERY BAGGER) eGFR 90 >=60 mL/min/1. [address] [facility] Comment: Interpretive Data Reference Interval Normal [...] last reviewed 2021. Blood 10/26/2023 5:28 PM GROCERY BAGGER 10/26/2023 6:00 PM GROCERY BAGGER Kasey Aamir LAB BLOOD ORDERABLES Final Resu lt Performing Organization Address [facility] Co de Phone Number [facility] [place] [address] * Creatinine (10/26/2023 5:28 PM GROCERY BAGGER) Creatinine 0.91 0.80 - 1.30 mg/dL [facility] Blood 10/26/2023 5:28 PM GROCERY BAGGER 10/26/2023 6:00 PM GROCERY BAGGER Narrative [facility] - 10/26/2023 6:31 PM GROCERY BAGGER Baseline prior to enoxaparin initiation. Result [facility] Kasey Aamir LAB BLOOD ORDERABLES Final Resu lt Performing Organization Address [facility] de Phone Number [facility] [place] [address] * (ABNORMAL) aPTT (10/26/2023 5:28 PM GROCERY BAGGER) aPTT 64(H) 28 - 38 sec [facility] Comment: Interpretive Data Heparin therapeutic range: 66.0 - 100.0 seconds. Range based on correlation with therapeutic heparin activity range of 0.3 - 0.7 Units/mL. Current interpretive data was last revised on 2023. Blood 10/26/2023 5:28 PM GROCERY BAGGER 10/26/2023 6:09 PM GROCERY BAGGER Narrative [facility] - 10/26/2023 6:18 PM GROCERY BAGGER Baseline prior to enoxaparin initiation. Kasey Aamir LAB BLOOD ORDERABLES Final Resu lt Performing Organization Address [facility] de Phone Number [facility] [place] [address] * (ABNORMAL) CBC without differential (10/26/2023 5:28 PM GROCERY BAGGER) WBC 9.1 3.8 - 9.9 K/cumm [facility] Hgb 9.6(L) 13.0 - 17.5 g/dL [facility] Hct 28.3(L) 38.9 - 50.3 % [facility] Plt 321 150 - 400 K/cumm [facility] MPV 11.4 9.1 - 12.3 fL [facility] RBC 3.16(L) 4.30 - 5.80 M/cumm [facility] MCV 89.6 81.3 - 96.4 fL [facility] MCH 30.4 27.1 - 33.3 pg [facility] MCHC 33.9 32.3 - 35.7 g/dL [facility] RDW CV 13.2 11.1 - 14.9 % [facility] RDW SD 43.6 35.7 - 48.1 fL [facility] NRBC abs 0.00 0.00 - 0.01 K/cumm [facility] Blood 10/26/2023 5:28 PM GROCERY BAGGER 10/26/2023 6:01 PM GROCERY BAGGER Narrative [facility] - 10/26/2023 6:09 PM GROCERY BAGGER Baseline prior to enoxaparin initiation. Kasey Rutledge DRAWER IN DOBBY LOOM LAB BLOOD ORDERABLES Final Resu lt [facility] [place] [address] * Protime-INR (10/26/2023 5:28 PM GROCERY BAGGER) PT 13.2 10.3 - 13.7 sec [facility] INR 1.16 0.90 - 1.20 [facility] Comment: Interpretive data Oral anticoagulant therapeutic ranges: Venous thromboembolism prophylaxis or treatment: 2.0-3.0 CARDIOLOGY Standard range: 2.0-3.0 High-intensity range: 2.5-3.5 Refer to indication-specific guidelines for appropriate target ranges for prosthetic heart valve replacement. Current interpretive data was last revised on 2019. Blood 10/26/2023 5:28 PM GROCERY BAGGER 10/26/2023 6:09 PM GROCERY BAGGER Narrative [facility] - 10/26/2023 6:18 PM GROCERY BAGGER Baseline prior to enoxaparin initiation. us Kasey Rutledge NP LAB BLOOD ORDERABLES Final Resu lt [facility] [place] [address] * (ABNORMAL) Differential, auto (10/26/2023 2:43 PM GROCERY BAGGER) Neutrophil abs 8.1(H) 1.5 - 6.5 K/cumm [facility] Imm gran abs 0.1 0.0 - 0.1 K/cumm [facility] Lymphocyte abs 0.9 0.8 - 3.3 K/cumm [facility] Monocyte abs 0.7 0.2 - 0.8 K/cumm [facility] Eosinophil abs 0.2 0.0 - 0.5 K/cumm [facility] Basophil abs 0.0 0.0 - 0.1 K/cumm [facility] Neutrophil pct 81.9 % [facility] Comment: Interpretive Data Percent cell count reference ranges are not reported, since discordance with absolute values may lead to misinterpretation of CBC data. Current Interpretive Data was last revised on 2018. Imm gran pct 0.6 % [facility] Comment: Interpretive Data Percent cell count reference ranges are not reported, since discordance with absolute values may lead to misinterpretation of CBC data. Current Interpretive Data was last revised on 2018. Lymphocyte pct 9.0 % [facility] Comment: Interpretive Data Percent cell count reference ranges are not reported, since discordance with absolute values may lead to misinterpretation of CBC data. Current Interpretive Data was last revised on 2018. Monocyte pct 6.6 % [facility] Comment: Interpretive Data Percent cell count reference ranges are not reported, since discordance with absolute values may lead to misinterpretation of CBC data. Current Interpretive Data was last revised on 2018. Eosinophil pct 1.5 % [facility] Comment: Interpretive Data Percent cell count reference ranges are not reported, since discordance with absolute values may lead to misinterpretation of CBC data. Current Interpretive Data was last revised on 2018. Basophil pct 0.4 % [facility] Comment: Interpretive Data Percent cell count reference ranges are not reported, since discordance with absolute values may lead to misinterpretation of CBC data. Current Interpretive Data was last revised on 2018. Blood 10/26/2023 2:43 PM GROCERY BAGGER 10/26/2023 2:56 PM GROCERY BAGGER us Kasey Rutledge NP LAB BLOOD ORDERABLES Final Resu lt [facility] [place] [address] * (ABNORMAL) CBC with auto differential (10/26/2023 2:43 PM GROCERY BAGGER) WBC 9.9 3.8 - 9.9 K/cumm [facility] Hgb 9.3(L) 13.0 - 17.5 g/dL [facility] Hct 27.2(L) 38.9 - 50.3 % [facility] Plt 310 150 - 400 K/cumm [facility] MPV 11.0 9.1 - 12.3 fL [facility] RBC 3.01(L) 4.30 - 5.80 M/cumm [facility] MCV 90.4 81.3 - 96.4 fL [facility] MCH 30.9 27.1 - 33.3 pg [facility] MCHC 34.2 32.3 - 35.7 g/dL [facility] RDW CV 13.0 11.1 - 14.9 % [facility] RDW SD 43.3 35.7 - 48.1 fL [facility] NRBC abs 0.00 0.00 - 0.01 K/cumm [facility] Blood 10/26/2023 2:43 PM GROCERY BAGGER 10/26/2023 2:56 PM GROCERY BAGGER N[facility] - 10/26/2023 3:05 PM GROCERY BAGGER Please draw one hour after second unit of PRBC's Kasey Rutledge DRAWER IN DOBBY LOOM LAB BLOOD ORDERABLES Final Resu lt Performing Organization Address [facility] de Phone Number [facility] [place] [address] * Transfuse RBC (10/26/2023 1:41 PM GROCERY BAGGER) Blood Hayder Vu Jr., MD BLOOD TRANSFUSION O RDERABLES Final Result Performing Organization Address [facility] de Phone Number [facility] [place] [address] * Transfuse RBC: 1 Units (10/26/2023 1:41 PM GROCERY BAGGER) Blood Hayder Vu Jr., MD BLOOD TRANSFUSION O RDERABLES Final Result * (ABNORMAL) aPTT (10/26/2023 11:09 AM GROCERY BAGGER) aPTT 74(H) 28 - 38 sec [facility] Comment: Interpretive Data Heparin therapeutic range: 66.0 - 100.0 seconds. Range based on correlation with therapeutic heparin activity range of 0.3 - 0.7 Units/mL. Current interpretive data was last revised on 2023. Blood 10/26/2023 11:0 9 AM GROCERY BAGGER 10/26/2023 11:38 AM GROCERY BAGGER Ca Ruano MD PhD LAB BLOOD ORDERABLES Final Result Performing Organization Address [facility] Co de Phone Number [facility] [place] [address] * Prepare RBC: 1 Units (10/26/2023 4:46 AM GROCERY BAGGER) Product code [id number] Unit Number [id number] * [facility] Product Blood Type OPOS [facility] Dispense Status PRESUMED TRANSFUSED [facility] Blood 10/26/2023 4:46 AM GROCERY BAGGER 10/26/2023 4:45 AM GROCERY BAGGER Narrative [facility] - 10/26/2023 4:02 PM GROCERY BAGGER Are special requirements needed? (All products are leukoreduced and CMV- safe)- >No Date required:-20231026 LRRBC # of [id number] Reasons:-Active bleeding, Hgb <8 g/dL} Hayder Vu Jr., MD BLOOD BANK PRODUCT ORDERABLES Final Result Performing Organization Address [facility] de Phone Number [facility] [place] [address] * Prepare RBC: 1 Units (10/26/2023 3:03 AM GROCERY BAGGER) Product code [id number] Unit Number [id number] 5 [facility] Product Blood Type OPOS [facility] Dispense Status PRESUMED TRANSFUSED [facility] Blood 10/26/2023 3:03 AM GROCERY BAGGER 10/26/2023 3:03 AM GROCERY BAGGER Narrative [facility] - 10/26/2023 4:01 PM GROCERY BAGGER Are special requirements needed? (All products are leukoreduced and CMV- safe)- >No Date required:-20231026 LRRBC # of [id number] Reasons:-Hgb <7 g/dL} Hayder Vu Jr., MD BLOOD BANK PRODUCT ORDERABLES Final Result Performing Organization Address [facility] [place] [address] * (ABNORMAL) aPTT (10/26/2023 2:21 AM GROCERY BAGGER) Pathologist [facility] aPTT 58(H) 28 - 38 sec [facility] Comment: Interpretive Data Heparin therapeutic range: 66.0 - 100.0 seconds. Range based on correlation with therapeutic heparin activity range of 0.3 - 0.7 Units/mL. Current interpretive data was last revised on 2023. Blood 10/26/2023 2:21 AM GROCERY BAGGER 10/26/2023 2:32 AM GROCERY BAGGER Narrative [facility] - 10/26/2023 2:54 AM GROCERY BAGGER Draw STAT PTT 6 hrs after initiation of heparin infusion, draw STAT PTT 6 hours after each dose change, and every 6 hours until 2 consecutive PTTs are within therapeutic range. Once two consecutive PTT's are therapeutic (66-100 seconds), then draw PTT every AM until heparin is discontinued. us Hayder Vu Jr., MD LAB BLOOD ORDERABLE S Final Result Performing Organization Address City/[facility]/ZIP Co de Phone Number [facility] [place] [address] * Type and screen (10/26/2023 2:21 AM GROCERY BAGGER) [facility] Jigna, indirect Negative ABO Rh O Positive [facility] Blood 10/26/2023 2:21 AM GROCERY BAGGER 10/26/2023 2:32 AM GROCERY BAGGER Narrative [facility] - 10/26/2023 3:20 AM GROCERY BAGGER Has the patient had Daratumumab or Isatuximab in the past 6 months?->Unknown us Tia Nolan NP LAB BLOOD BANK TEST OR DERABLES Final Result Performing Organization Address City/[facility]/ZIP Co de Phone Number [facility] [place] [address] * (ABNORMAL) CBC without differential (10/26/2023 2:21 AM GROCERY BAGGER) [facility] WBC 9.0 3.8 - 9.9 K/cumm [facility] Hgb 6.7(L) 13.0 - 17.5 g/dL [facility] Hct 19.6(L) 38.9 - 50.3 % [facility] Plt 297 150 - 400 K/cumm [facility] MPV 10.9 9.1 - 12.3 fL [facility] RBC 2.15(L) 4.30 - 5.80 M/cumm [facility] MCV 91.2 81.3 - 96.4 fL [facility] MCH 31.2 27.1 - 33.3 pg [facility] MCHC 34.2 32.3 - 35.7 g/dL [facility] RDW CV 12.5 11.1 - 14.9 % [facility] RDW SD 41.9 35.7 - 48.1 fL [facility] NRBC abs 0.00 0.00 - 0.01 K/cumm [facility] Blood 10/26/2023 2:21 AM GROCERY BAGGER 10/26/2023 2:40 AM GROCERY BAGGER Tia Nolan DRAWER IN DOBBY LOOM LAB BLOOD ORDERABLES F inal Result Performing Organization Address City/[facility] Co de Phone Number [facility] [place] [address] * Phosphorus (10/26/2023 2:21 AM GROCERY BAGGER) [facility] Phosphorus, pl 2.3 2.3 - 4.5 mg/dL [facility] Blood 10/26/2023 2:21 AM GROCERY BAGGER 10/26/2023 2:40 AM GROCERY BAGGER Tia Nolan DRAWER IN DOBBY LOOM LAB BLOOD ORDERABLES F inal Result Performing Organization Address City/[facility]/ZIP Co de Phone Number [facility] [place] [address] * Magnesium (10/26/2023 2:21 AM GROCERY BAGGER) [facility] Magnesium 1.8 1.4 - 2.5 mg/dL [facility] Blood 10/26/2023 2:21 AM GROCERY BAGGER 10/26/2023 2:40 AM GROCERY BAGGER Tia Nolan DRAWER IN DOBBY LOOM LAB BLOOD ORDERABLES F inal Result Performing Organization Address [facility] Co de Phone Number [facility] [place] [address] * Potassium, whole blood (10/25/2023 10:11 PM GROCERY BAGGER) Pathologist [facility] Potassium, bld 3.5 3.3 - 4.9 mmol/L [facility] Blood 10/25/2023 10:1 1 PM GROCERY BAGGER 10/25/2023 10:19 PM GROCERY BAGGER Tia Nolan DRAWER IN DOBBY LOOM LAB BLOOD ORDERABLES F inal Result Performing Organization Address [facility] de Phone Number [facility] [place] [address] * Critical Care (10/25/2023 9:09 PM GROCERY BAGGER) Narrative Wilder Arceo Jr., MD - 10/25/2023 9:09 PM GROCERY BAGGER Tia Nolan NP ? 10/26/2023 12:17 AM [...] plan with the patient's team and other medical/regulatory services consultant staff. This time was in addition [...] in the medical record us Tia Nolan NP IN CLINIC/BEDSIDE [facility] Final Result * eGFR (10/25/2023 8:41 PM GROCERY BAGGER) eGFR >90 >=60 mL/min/1. 73 m2 [facility] Comment: Interpretive Data Reference Interval Normal [...] last reviewed 2021. Blood 10/25/2023 8:41 PM GROCERY BAGGER 10/25/2023 8:58 PM GROCERY BAGGER us Oneyda Foley NP LAB BLOOD ORDERABLES Final Res ult [facility] [place] [address] * (ABNORMAL) Differential, auto (10/25/2023 8:41 PM GROCERY BAGGER) Neutrophil abs 7.3(H) 1.5 - 6.5 K/cumm [facility] Imm gran abs 0.1 0.0 - 0.1 K/cumm [facility] Lymphocyte abs 1.6 0.8 - 3.3 K/cumm [facility] Monocyte abs 0.8 0.2 - 0.8 K/cumm [facility] Eosinophil abs 0.3 0.0 - 0.5 K/cumm [facility] Basophil abs 0.0 0.0 - 0.1 K/cumm [facility] Neutrophil pct 72.9 % [facility] Comment: Interpretive Data Percent cell count reference ranges are not reported, since discordance with absolute values may lead to misinterpretation of CBC data. Current Interpretive Data was last revised on 2018. Imm gran pct 0.5 % [facility] Comment: Interpretive Data Percent cell count reference ranges are not reported, since discordance with absolute values may lead to misinterpretation of CBC data. Current Interpretive Data was last revised on 2018. Lymphocyte pct 15.7 % [facility] Comment: Interpretive Data Percent cell count reference ranges are not reported, since discordance with absolute values may lead to misinterpretation of CBC data. Current Interpretive Data was last revised on 2018. Monocyte pct 7.8 % [facility] Comment: Interpretive Data Percent cell count reference ranges are not reported, since discordance with absolute values may lead to misinterpretation of CBC data. Current Interpretive Data was last revised on 2018. Eosinophil pct 2.7 % [facility] Comment: Interpretive Data Percent cell count reference ranges are not reported, since discordance with absolute values may lead to misinterpretation of CBC data. Current Interpretive Data was last revised on 2018. Basophil pct 0.4 % [facility] Comment: Interpretive Data Percent cell count reference ranges are not reported, since discordance with absolute values may lead to misinterpretation of CBC data. Current Interpretive Data was last revised on 2018. Blood 10/25/2023 8:41 PM GROCERY BAGGER 10/25/2023 8:58 PM GROCERY BAGGER us Oneyda Foley DRAWER IN DOBBY LOOM LAB BLOOD ORDERABLES Final Res ult Performing Organization Address City/[facility]/ZIP Co de Phone Number [facility] [place] [address] * (ABNORMAL) CBC with auto differential (10/25/2023 8:41 PM GROCERY BAGGER) Pathologist [facility] WBC 10.0(H) 3.8 - 9.9 K/cumm [facility] Hgb 7.0(L) 13.0 - 17.5 g/dL [facility] Hct 19.7(L) 38.9 - 50.3 % [facility] Plt 320 150 - 400 K/cumm [facility] MPV 11.6 9.1 - 12.3 fL [facility] RBC 2.14(L) 4.30 - 5.80 M/cumm [facility] MCV 92.1 81.3 - 96.4 fL [facility] MCH 32.7 27.1 - 33.3 pg [facility] MCHC 35.5 32.3 - 35.7 g/dL [facility] RDW CV 12.6 11.1 - 14.9 % [facility] RDW SD 42.2 35.7 - 48.1 fL [facility] NRBC abs 0.00 0.00 - 0.01 K/cumm [facility] Blood 10/25/2023 8:41 PM GROCERY BAGGER 10/25/2023 8:58 PM GROCERY BAGGER us Tia Nolan DRAWER IN DOBBY LOOM LAB BLOOD ORDERABLES F inal Result Performing Organization Address City/[facility]/ZIP Co de Phone Number [facility] [place] [address] * (ABNORMAL) Basic metabolic panel (10/25/2023 8:41 PM GROCERY BAGGER) Pathologist [facility] Sodium 133(L) 135 - 145 mmol/L [facility] Potassium, pl See Comment 3.3 - 4.9 mmol/L [facility] Comment:Credited; Hemolyzed Specimen Chloride 103 97 - 110 mmol/L [facility] CO2 26 22 - 32 mmol/L [facility] Anion gap 4 2 - 15 mmol/L [facility] BUN 13 6 - 25 mg/dL [facility] Creatinine 0.86 0.80 - 1.30 mg/dL [facility] Glucose 157 70 - 199 mg/dL [facility] Comment: Interpretive Data Fasting glucose >/= [...] 2022. Calcium 7.8(L) 8.5 - 10.3 mg/dL [facility] Blood 10/25/2023 8:41 PM GROCERY BAGGER 10/25/2023 8:58 PM GROCERY BAGGER us Tia Nolan NP LAB BLOOD ORDERABLES F inal Result [facility] [place] [address] * POCT glucose (10/25/2023 7:22 PM GROCERY BAGGER) [facility] Signature Glucose, POC 162 70 - 199 mg/dL [facility] Blood 10/25/2023 7:22 PM GROCERY BAGGER 10/25/2023 7:22 PM GROCERY BAGGER us Hayder Vu Jr., MD LAB POCT ORDERABLES - DEVICE Final Result Performing Organization Address [facility]/ZIP Co de Phone Number [facility] Department of [place] [address] * Critical Care (10/25/2023 6:45 PM GROCERY BAGGER) Narrative Luana Brady NP - 10/25/2023 6:45 PM GROCERY BAGGER Luana Brady NP ? 10/25/2023 ??6:45 PM [...] plan with the patient's team and other medical/regulatory services consultant staff. This time was in addition to and separate from care provided by other practitioners on this day of service. ?? us Luana Brady NP IN CLINIC/BEDSIDE ORDERABLES Final Result * (ABNORMAL) aPTT (10/25/2023 4:59 PM GROCERY BAGGER) aPTT 62(H) 28 - 38 sec [facility]URA [facility]ARAGO[facility] Comment: Interpretive Data Heparin therapeutic range: 66.0 - 100.0 seconds. Range based on correlation with therapeutic heparin activity range of 0.3 - 0.7 Units/mL. Current interpretive data was last revised on 2023. Blood 10/25/2023 4:59 PM GROCERY BAGGER 10/25/2023 5:12 PM GROCERY BAGGER Narrative LAURA CORRAL - 10/25/2023 5:34 PM GROCERY BAGGER Draw STAT PTT 6 hrs after initiation of heparin infusion, draw STAT PTT 6 hours after each dose change, and every 6 hours until 2 consecutive PTTs are within therapeutic range. Once two consecutive PTT's are therapeutic (66-100 seconds), then draw PTT every AM until heparin is discontinued. us Hayder Vu Jr., MD LAB BLOOD ORDERABLE S Final Result [facility]URA ZARAGOZA [facility] [place] [address] * POCT glucose (10/25/2023 3:09 PM GROCERY BAGGER) Glucose, POC 118 70 - 199 mg/dL LA[facility] Blood 10/25/2023 3:09 PM GROCERY BAGGER 10/25/2023 3:09 PM GROCERY BAGGER us Hayder Vu Jr., MD LAB POCT ORDERABLES - DEVICE Final Result [facility] [place] [address] * MRI Brain Epilepsy W WO Contrast (10/25/2023 1:55 PM GROCERY BAGGER) Anatomical Region Laterality Modality Head and Neck N/A Magnetic Resonan ce 10/25/2023 2:57 PM GROCERY BAGGER Impressions 10/25/2023 3:42 PM GROCERY BAGGER 1. ??Thin bilateral convexity subdural hematomas, not [...] Francia Schmitz M.D. Narrative 10/25/2023 3:42 PM GROCERY BAGGER EXAMINATION: Magnetic resonance imaging (MRI) of the [...] Result * POCT glucose (10/25/2023 10:57 AM GROCERY BAGGER) [facility] Glucose, POC 195 70 - 199 mg/dL [facility] Blood 10/25/2023 10:5 7 AM GROCERY BAGGER 10/25/2023 10:57 AM GROCERY BAGGER Hayder Vu Jr., MD LAB POCT ORDERABLES - DEVICE Final Result [facility] [place] [address] * (ABNORMAL) Differential, auto (10/25/2023 10:14 AM GROCERY BAGGER) [facility] Neutrophil abs 10.6(H) 1.5 - 6.5 K/cumm [facility] Imm gran abs 0.1 0.0 - 0.1 K/cumm [facility] Lymphocyte abs 1.5 0.8 - 3.3 K/cumm [facility] Monocyte abs 0.9(H) 0.2 - 0.8 K/cumm [facility] Eosinophil abs 0.2 0.0 - 0.5 K/cumm [facility] Basophil abs 0.1 0.0 - 0.1 K/cumm [facility] Neutrophil pct 79.5 % [facility] Comment: Interpretive Data Percent cell count reference ranges are not reported, since discordance with absolute values may lead to misinterpretation of CBC data. Current Interpretive Data was last revised on 2018. Imm gran pct 0.5 % LAURA [facility] Comment: Interpretive Data Percent cell count [...] on 2018. Blood 10/25/2023 10:1 4 AM GROCERY BAGGER 10/25/2023 10:27 AM GROCERY BAGGER Hayder Vu Jr., MD LAB BLOOD ORDERABLE S Final Result [facility]URA ZARAGOZA [facility] [place] [address] * (ABNORMAL) aPTT (10/25/2023 10:14 AM GROCERY BAGGER) aPTT 60(H) 28 - 38 sec [facility]URA ZARAGOZA Comment: Interpretive Data Heparin therapeutic range: 66.0 - 100.0 seconds. Range based on correlation with therapeutic heparin activity range of 0.3 - 0.7 Units/mL. Current interpretive data was last revised on 2023. Blood 10/25/2023 10:1 4 AM GROCERY BAGGER 10/25/2023 10:27 AM GROCERY BAGGER Narrative [facility] - 10/25/2023 10:56 AM GROCERY BAGGER Draw STAT PTT 6 hrs after initiation of heparin infusion, draw STAT PTT 6 hours after each dose change, and every 6 hours until 2 consecutive PTTs are within therapeutic range. Once two consecutive PTT's are therapeutic (66-100 seconds), then draw PTT every AM until heparin is discontinued. Hayder Vu Jr., MD LAB BLOOD ORDERABLE S Final Result [facility] [place] [address] * (ABNORMAL) CBC with auto differential (10/25/2023 10:14 AM GROCERY BAGGER) [facility] WBC 13.3(H) 3.8 - 9.9 K/cumm [facility] Hgb 8.2(L) 13.0 - 17.5 g/dL [facility] Hct 24.1(L) 38.9 - 50.3 % [facility] Plt 367 150 - 400 K/cumm [facility] MPV 11.0 9.1 - 12.3 fL [facility] RBC 2.57(L) 4.30 - 5.80 M/cumm [facility] MCV 93.8 81.3 - 96.4 fL [facility] MCH 31.9 27.1 - 33.3 pg [facility] MCHC 34.0 32.3 - 35.7 g/dL [facility] RDW CV 12.4 11.1 - 14.9 % [facility] RDW SD 43.0 35.7 - 48.1 fL [facility] NRBC abs 0.00 0.00 - 0.01 K/cumm [facility] Blood 10/25/2023 10:1 4 AM GROCERY BAGGER 10/25/2023 10:27 AM GROCERY BAGGER Hayder Vu Jr., MD LAB BLOOD ORDERABLE S Final Result Performing Organization Address City/[facility]/ZIP Co de Phone Number [facility] [place] [address] * XR Chest 1 View (10/25/2023 9:52 AM GROCERY BAGGER) Anatomical Region Laterality Modality Body, Chest N/A Computed Radiogr aphy 10/25/2023 11:1 3 AM GROCERY BAGGER Impressions 10/25/2023 11:23 AM GROCERY BAGGER Comparison made to chest radiograph 10/22/2023 at [...] Keely Williamson M.D. Narrative 10/25/2023 11:23 AM GROCERY BAGGER EXAMINATION: 1 view chest radiograph Procedure Note [...] it. Electronically signed by: Keely Williamson M.D. us Hayder Vu Jr., MD IMG XR PROCEDURES F inal Result * POCT glucose (10/25/2023 6:58 AM GROCERY BAGGER) Glucose, POC 129 70 - 199 mg/dL [facility] Blood 10/25/2023 6:58 AM GROCERY BAGGER 10/25/2023 6:58 AM GROCERY BAGGER Hayder Vu Jr., MD LAB POCT ORDERABLES - DEVICE Final Result Performing Organization Address [facility] Co de Phone Number [facility] [place] [address] * POCT glucose (10/25/2023 3:44 AM GROCERY BAGGER) [facility] Glucose, POC 102 70 - 199 mg/dL [facility] Blood 10/25/2023 3:44 AM GROCERY BAGGER 10/25/2023 3:44 AM GROCERY BAGGER us Hayder Vu Jr., MD LAB POCT ORDERABLES - DEVICE Final Result Performing Organization Address [facility] [place] [address] * (ABNORMAL) aPTT (10/25/2023 3:14 AM GROCERY BAGGER) [facility] aPTT 47(H) 28 - 38 sec [facility] Comment: Interpretive Data Heparin therapeutic range: 66.0 - 100.0 seconds. Range based on correlation with therapeutic heparin activity range of 0.3 - 0.7 Units/mL. Current interpretive data was last revised on 2023. Blood 10/25/2023 3:14 AM GROCERY BAGGER 10/25/2023 3:25 AM GROCERY BAGGER Narrative [facility] - 10/25/2023 3:47 AM GROCERY BAGGER Draw STAT PTT 6 hrs after initiation of heparin infusion, draw STAT PTT 6 hours after each dose change, and every 6 hours until 2 consecutive PTTs are within therapeutic range. Once two consecutive PTT's are therapeutic (66-100 seconds), then draw PTT every AM until heparin is discontinued. us Hayder Vu Jr., MD LAB BLOOD ORDERABLE S Final Result Performing Organization Address [facility] Co de Phone Number [facility] [place] [address] * POCT glucose (10/24/2023 11:45 PM GROCERY BAGGER) Glucose, POC 141 70 - 199 mg/dL [facility] Blood 10/24/2023 11:4 5 PM GROCERY BAGGER 10/24/2023 11:45 PM GROCERY BAGGER Hayder Vu Jr., MD LAB POCT ORDERABLES - DEVICE Final Result [facility] [place] [address] * Critical Care (10/24/2023 11:00 PM GROCERY BAGGER) Narrative Wilder Arceo Jr., MD - 10/24/2023 11:00 PM GROCERY BAGGER Wilder Arceo Jr., MD ? 10/25/2023 12:47 [...] plan with the ICU team and other medical/regulatory services consultant staff, making frequent assessments and decisions [...] Acute pain/acute postoperative pain and Seizure ?? [id number] mycardial infarction (Non-STEMI) and Cardiac arrest ?? [...] * (ABNORMAL) Calcium, ionized (10/24/2023 9:11 PM GROCERY BAGGER) Pathologist [facility] Calcium, Ionized 4.38(L) 4.50 - 5.10 mg/dL [facility] Blood 10/24/2023 9:11 PM GROCERY BAGGER 10/24/2023 9:18 PM GROCERY BAGGER Hayder Vu Jr., MD LAB BLOOD ORDERABLE S Final Result Performing Organization Address [facility] Co de Phone Number [facility] [place] [address] * POCT glucose (10/24/2023 7:42 PM GROCERY BAGGER) [facility] Glucose, POC 122 70 - 199 mg/dL [facility] Blood 10/24/2023 7:42 PM GROCERY BAGGER 10/24/2023 7:42 PM GROCERY BAGGER Hayder Vu Jr., MD LAB POCT ORDERABLES - DEVICE Final Result Performing Organization Address City/[facility]/ZIP Co de Phone Number [facility] [place] [address] * (ABNORMAL) Basic metabolic panel (10/24/2023 7:06 PM GROCERY BAGGER) [facility] Sodium 136 135 - 145 mmol/L [facility] Potassium, pl 3.7 3.3 - 4.9 mmol/L [facility] Chloride 104 97 - 110 mmol/L [facility] CO2 25 22 - 32 mmol/L [facility] Anion gap 7 2 - 15 mmol/L [facility] BUN 13 6 - 25 mg/dL [facility] Creatinine 0.94 0.80 - 1.30 mg/dL [facility] Glucose 126 70 - 199 mg/dL [facility] Comment: Interpretive Data Fasting glucose >/= [...] 2022. Calcium 8.1(L) 8.5 - 10.3 mg/dL [facility] Blood 10/24/2023 7:06 PM GROCERY BAGGER 10/24/2023 7:12 PM GROCERY BAGGER Hayder Vu Jr., MD LAB BLOOD ORDERABLE S Final Result [facility] [place] [address] * eGFR (10/24/2023 7:06 PM GROCERY BAGGER) eGFR 86 >=60 mL/min/1. 73 m2 [facility] Comment: Interpretive Data Reference Interval Normal [...] last reviewed 2021. Blood 10/24/2023 7:06 PM GROCERY BAGGER 10/24/2023 7:16 PM GROCERY BAGGER us Hayder Vu Jr., MD LAB BLOOD ORDERABLE S Final Result [facility] [place] [address] * (ABNORMAL) Differential, auto (10/24/2023 7:06 PM GROCERY BAGGER) Neutrophil abs 10.4(H) 1.5 - 6.5 K/cumm [facility] Imm gran abs 0.1 0.0 - 0.1 K/cumm [facility] Lymphocyte abs 1.2 0.8 - 3.3 K/cumm [facility] Monocyte abs 0.9(H) 0.2 - 0.8 K/cumm [facility] Eosinophil abs 0.1 0.0 - 0.5 K/cumm [facility] Basophil abs 0.1 0.0 - 0.1 K/cumm [facility] Neutrophil pct 82.0 % [facility] Comment: Interpretive Data Percent cell count reference ranges are not reported, since discordance with absolute values may lead to misinterpretation of CBC data. Current Interpretive Data was last revised on 2018. Imm gran pct 0.5 % [facility] Comment: Interpretive Data Percent cell count reference ranges are not reported, since discordance with absolute values may lead to misinterpretation of CBC data. Current Interpretive Data was last revised on 2018. Lymphocyte pct 9.7 % [facility] Comment: Interpretive Data Percent cell count reference ranges are not reported, since discordance with absolute values may lead to misinterpretation of CBC data. Current Interpretive Data was last revised on 2018. Monocyte pct 6.9 % [facility] Comment: Interpretive Data Percent cell count reference ranges are not reported, since discordance with absolute values may lead to misinterpretation of CBC data. Current Interpretive Data was last revised on 2018. Eosinophil pct 0.4 % [facility] Comment: Interpretive Data Percent cell count reference ranges are not reported, since discordance with absolute values may lead to misinterpretation of CBC data. Current Interpretive Data was last revised on 2018. Basophil pct 0.5 % [facility] Comment: Interpretive Data Percent cell count reference ranges are not reported, since discordance with absolute values may lead to misinterpretation of CBC data. Current Interpretive Data was last revised on 2018. Blood 10/24/2023 7:06 PM GROCERY BAGGER 10/24/2023 7:16 PM GROCERY BAGGER Oneyda Foley DRAWER IN DOBBY LOOM LAB BLOOD ORDERABLES Final Res ult [facility] [place] [address] * Phosphorus (10/24/2023 7:06 PM GROCERY BAGGER) Phosphorus, pl 3.3 2.3 - 4.5 mg/dL [facility] Blood 10/24/2023 7:06 PM GROCERY BAGGER 10/24/2023 7:12 PM GROCERY BAGGER Tia Nolan DRAWER IN DOBBY LOOM LAB BLOOD ORDERABLES F inal Result [facility] [place] [address] * Magnesium (10/24/2023 7:06 PM GROCERY BAGGER) Magnesium 2.1 1.4 - 2.5 mg/dL [facility] Blood 10/24/2023 7:06 PM GROCERY BAGGER 10/24/2023 7:12 PM GROCERY BAGGER Tia Nolan DRAWER IN DOBBY LOOM LAB BLOOD ORDERABLES F inal Result Performing Organization Address [facility] Co de Phone Number [facility] [place] [address] * (ABNORMAL) CBC with auto differential (10/24/2023 7:06 PM GROCERY BAGGER) Pathologist [facility] WBC 12.7(H) 3.8 - 9.9 K/cumm [facility] Hgb 7.6(L) 13.0 - 17.5 g/dL [facility] Hct 22.1(L) 38.9 - 50.3 % [facility] Plt 332 150 - 400 K/cumm [facility] MPV 10.8 9.1 - 12.3 fL [facility] RBC 2.42(L) 4.30 - 5.80 M/cumm [facility] MCV 91.3 81.3 - 96.4 fL [facility] MCH 31.4 27.1 - 33.3 pg [facility] MCHC 34.4 32.3 - 35.7 g/dL [facility] RDW CV 12.5 11.1 - 14.9 % [facility] RDW SD 42.5 35.7 - 48.1 fL [facility] NRBC abs 0.00 0.00 - 0.01 K/cumm [facility] Blood 10/24/2023 7:06 PM GROCERY BAGGER 10/24/2023 7:16 PM GROCERY BAGGER Tia Nolan DRAWER IN DOBBY LOOM LAB BLOOD ORDERABLES F inal Result Performing Organization Address [facility]/ZIP Co de Phone Number [facility] [place] [address] * aPTT (10/24/2023 7:06 PM GROCERY BAGGER) Pathologist [facility] aPTT 35 28 - 38 sec [facility] Comment: Interpretive Data Heparin therapeutic range: 66.0 - 100.0 seconds. Range based on correlation with therapeutic heparin activity range of 0.3 - 0.7 Units/mL. Current interpretive data was last revised on 2023. Blood 10/24/2023 7:06 PM GROCERY BAGGER 10/24/2023 7:13 PM GROCERY BAGGER Oneyda Foley DRAWER IN DOBBY LOOM LAB BLOOD ORDERABLES Final Res ult Performing Organization Address [facility] de Phone Number [facility] [place] [address] * (ABNORMAL) Protime-INR (10/24/2023 7:06 PM GROCERY BAGGER) PT 13.8(H) 10.3 - 13.7 sec [facility] INR 1.21(H) 0.90 - 1.20 [facility] Comment: Interpretive data Oral anticoagulant therapeutic ranges: Venous thromboembolism prophylaxis or treatment: 2.0-3.0 CARDIOLOGY Standard range: 2.0-3.0 High-intensity range: 2.5-3.5 Refer to indication-specific guidelines for appropriate target ranges for prosthetic heart valve replacement. Current interpretive data was last revised on 2019. Blood 10/24/2023 7:06 PM GROCERY BAGGER 10/24/2023 7:13 PM GROCERY BAGGER Oneyda Foley NP LAB BLOOD ORDERABLES Final Res ult Performing Organization Address [facility] de Phone Number [facility] [place] [address] * POCT glucose (10/24/2023 2:58 PM GROCERY BAGGER) Glucose, POC 122 70 - 199 mg/dL [facility] Blood 10/24/2023 2:58 PM GROCERY BAGGER 10/24/2023 2:58 PM GROCERY BAGGER Hayder Vu Jr., MD LAB POCT ORDERABLES - DEVICE Final Result Performing Organization Address [facility] [place] [address] * aPTT (10/24/2023 12:18 PM GROCERY BAGGER) Pathologist [facility] aPTT 35 28 - 38 sec [facility] Comment: Interpretive Data Heparin therapeutic range: 66.0 - 100.0 seconds. Range based on correlation with therapeutic heparin activity range of 0.3 - 0.7 Units/mL. Current interpretive data was last revised on 2023. Blood 10/24/2023 12:1 8 PM GROCERY BAGGER 10/24/2023 12:30 PM GROCERY BAGGER Narrative [facility] - 10/24/2023 12:55 PM GROCERY BAGGER Draw STAT PTT 6 hrs after initiation of heparin infusion, draw STAT PTT 6 hours after each dose change, and every 6 hours until 2 consecutive PTTs are within therapeutic range. Once two consecutive PTT's are therapeutic (66-100 seconds), then draw PTT every AM until heparin is discontinued. us Hayder Vu Jr., MD LAB BLOOD ORDERABLE S Final Result Performing Organization Address [facility] de Phone Number [facility] [place] [address] * TRANSTHORACIC ECHO (TTE) COMPLETE W DOPPLER/CF W CONTRAST (10/24/2023 11:43 AM GROCERY BAGGER) Pathologist [facility] LV EF 70 % CARDIOREPORT Anatomical Region Laterality Modality Ultrasound 10/24/2023 7:00 AM GROCERY BAGGER Narrative 10/24/2023 12:10 PM GROCERY BAGGER Patient name: Hira Evans Date of test: 10/24/2023 Type of test: TTE w/Doppler Hospital #: 0 Date of : 1950 (M) Ui Lead Developer: Krystal Wasserman RDCS Referring Physician: HAYDER VU MD Contrast Agent: 1.1 ml Optison Administered, (1.9 ml wasted). Contrast Administered by: icu nurse Supervised/Interpreted by: Woody White MD Diagnosis: Location: [facility] Paramjit [facility] Reason for test: Post arrest, bilateral PE [...] 2=Hypo 3=Akinetic 4=Dyskin./Aneurysm 0=Not visualized) Parasternal Long [place]:MAS=1 BAS=1 MIL=1 HIPOLITO=1 Parasternal Short [place]:MAS=1 MIS=1 OR=1 MIL=1 MAL=1 MA=1 Apical 4 Chambers:=1 MIS=1 BIS=1 BAL=1 MAL=1 AL=1 AC=1 Apical 2 Chambers:AI=1 OR=1 BI=1 BA=1 MA=1 AA=1 AC=1 LV Global [...] MD By signing this report, the attending packing clerk certifies that he or she has personally supervised and interpreted the echocardiogram and has reviewed and or edited and agrees with the written comments contained within the report. Procedure Note Woody Hidalgo MD - 10/24/2023 Patient name: Hira Evans Date of test: 10/24/2023 Type of test: TTE w/Doppler [facility] #: 0 Date of : 1950 (M) Ui Lead Developer: Krystal Wasserman [facility] Referring Physician: HAYDER VU MD Contrast Agent: 1.1 ml Optison Administered, (1.9 ml wasted). Contrast Administered by: icu nurse Supervised/Interpreted by: Woody White MD Diagnosis: Location: [facility] Reason for test: Post arrest, bilateral PE [...] 2=Hypo 3=Akinetic 4=Dyskin./Aneurysm 0=Not visualized) Parasternal Long [place]:MAS=1 BAS=1 MIL=1 HIPOLITO=1 Parasternal Short [place]:MAS=1 MIS=1 OR=1 MIL=1 MAL=1 MA=1 Apical 4 Chambers:=1 MIS=1 BIS=1 BAL=1 MAL=1 AL=1 AC=1 Apical 2 Chambers:AI=1 OR=1 BI=1 BA=1 MA=1 AA=1 AC=1 LV Global [...] MD By signing this report, the attending packing clerk certifies that he or she has personally supervised and interpreted the echocardiogram and has reviewed and or edited and agrees with the written comments contained within the report. Hayder Vu Jr., MD CV ECHO PROCEDURES Final Result * POCT glucose (10/24/2023 11:04 AM GROCERY BAGGER) [facility] Glucose, POC 121 70 - 199 mg/dL [facility] Blood 10/24/2023 11:0 4 AM GROCERY BAGGER 10/24/2023 11:04 AM GROCERY BAGGER Hayder Vu Jr., MD LAB POCT ORDERABLES - DEVICE Final Result [facility] [place] [address] * (ABNORMAL) Troponin I high-sensitivity 6-hour (10/24/2023 9:39 AM GROCERY BAGGER) [facility] Trop I hs 133(H) <=35 ng/L [facility] Comment: Interpretive Data For further hscTnI resources including the diagnostic algorithm and an aid in interpretation, copy and paste this link: https://[employer]bitric[employer].org/show/hsTrop-1 Current Interpretive Data last revised 2020. Previous critical value noted within 48 hours ago. Trop I hs pct delta -35(C) % [facility] Trop I hs interp Significa nt(C) [facility] Blood 10/24/2023 9:39 AM GROCERY BAGGER 10/24/2023 9:54 AM GROCERY BAGGER Hayder Vu Jr., MD LAB BLOOD ORDERABLE S Edited Result - Final Performing Organization Address [facility]/ZIP Co de Phone Number [facility] [place] [address] * (ABNORMAL) Troponin I high-sensitivity (10/24/2023 8:32 AM GROCERY BAGGER) Trop I hs 153(H) <=35 ng/L [facility] Comment: Interpretive Data For further hscTnI resources including the diagnostic algorithm and an aid in interpretation, copy and paste this link: https://[employer].org/show/hsTrop-1 Current Interpretive Data last revised 2020. Blood 10/24/2023 8:32 AM GROCERY BAGGER 10/24/2023 8:59 AM GROCERY BAGGER us Veronica MESA LAB BLOOD ORDERABLES Fi nal Result Performing Organization Address City/[facility]/ZIP Co de Phone Number [facility] [place] [address] * POCT glucose (10/24/2023 7:31 AM GROCERY BAGGER) Glucose, POC 111 70 - 199 mg/dL [facility] Blood 10/24/2023 7:31 AM GROCERY BAGGER 10/24/2023 7:31 AM GROCERY BAGGER us Hayder Vu Jr., MD LAB POCT ORDERABLES - DEVICE Final Result [facility] [place] [address] * Critical Care (10/24/2023 6:48 AM GROCERY BAGGER) Narrative Avel Bourne MD - 10/24/2023 6:48 AM GROCERY BAGGER Rob Langley NP ? 10/24/2023 ??5:31 PM [...] plan with the ICU team and other medical/regulatory services consultant staff, making frequent assessments and decisions [...] the following conditions: ?? us Rob Langley DRAWER IN DOBBY LOOM IN CLINIC/BEDS ADELE ORDERABLES Final Result * aPTT (10/24/2023 5:38 AM GROCERY BAGGER) aPTT 30 28 - 38 sec [facility] Comment: Interpretive Data Heparin therapeutic range: 66.0 - 100.0 seconds. Range based on correlation with therapeutic heparin activity range of 0.3 - 0.7 Units/mL. Current interpretive data was last revised on 2023. Blood 10/24/2023 5:38 AM GROCERY BAGGER 10/24/2023 5:43 AM GROCERY BAGGER Narrative [facility] - 10/24/2023 6:06 AM GROCERY BAGGER Draw STAT PTT 6 hrs after initiation of heparin infusion, draw STAT PTT 6 hours after each dose change, and every 6 hours until 2 consecutive PTTs are within therapeutic range. Once two consecutive PTT's are therapeutic (66-100 seconds), then draw PTT every AM until heparin is discontinued. Hayder Vu Jr., MD LAB BLOOD ORDERABLE S Final Result Performing Organization Address [facility] Co de Phone Number [facility] [place] [address] * (ABNORMAL) Troponin I high-sensitivity 2-hour (10/24/2023 5:38 AM GROCERY BAGGER) Trop I hs 195(H) <=35 ng/L [facility] Comment: Previous critical value noted within 48 hours ago. Interpretive Data For further hscTnI resources including the diagnostic algorithm and an aid in interpretation, copy and paste this link: https://bjhlab.testcatalog.org/show/hsTrop-1 Current Interpretive Data last revised 2020. Trop I hs pct delta -5 % [facility] Comment:Previous critical va lue noted within 48 hours ago. Trop I hs interp Equivocal [facility] Comment:Previous critical va lue noted within 48 hours ago. Blood 10/24/2023 5:38 AM GROCERY BAGGER 10/24/2023 5:43 AM GROCERY BAGGER Hayder Vu Jr., MD LAB BLOOD ORDERABLE S Final Result Performing Organization Address [facility] Co de Phone Number [facility] [place] [address] * EEG (10/24/2023 5:02 AM GROCERY BAGGER) Anatomical Region Laterality Modality EEG Narrative 10/24/2023 4:40 PM GROCERY BAGGER Routine EEG Report Patient Name: Hira Evans [facility] Medical Record Number (MRN): [id number] [facility] Record: [id number] Date of (): 1950 EEG Date: 10/24/2023 [...] 32 channel EEG recording acquired on a Analyze Re EEG-1200 acquisition system. Scalp electrodes were placed [...] * ECG 12 lead (10/24/2023 3:44 AM GROCERY BAGGER) Ventricular Rate EKG/Min 82 BPM [facility] Atrial Rate 82 BPM [facility] MO-Interval (MSEC) 166 ms [facility] QRS-Interval (MSEC) 78 ms [facility] QT-Interval (MSEC) 384 ms [facility] QTc 448 ms [facility] P [place] 34 degrees [facility] R [place] -30 degrees [facility] T [place] -13 degrees [facility] Diagnosis Normal sinus rhythm Left axis deviation Nonspecific ST abnormality Abnormal ECG No previous ECGs available Confirmed by ELLA LASSITER M.D ([id number]) on 10/25/2023 1:12:26 PM [facility] 10/24/2023 3:44 AM GROCERY BAGGER 10/25/2023 1:12 PM GROCERY BAGGER us Tia Nolan DRAWER IN DOBBY LOOM ECG ORDERABLES Final Result [facility] * Critical result callback Cardio chemistry (10/24/2023 3:38 AM GROCERY BAGGER) Date Notified [id number] [facility] Time Notified 451 [facility] Test name Trop I hs [facility] Called/Read Back Edwige SANCHEZ [facility] Credentials RN [facility] Called By JO [facility] Blood 10/24/2023 3:38 AM GROCERY BAGGER 10/24/2023 4:02 AM GROCERY BAGGER us Hayder Vu Jr., MD LAB BLOOD ORDERABLE S Final Result [facility] [place] [address] * (ABNORMAL) Troponin I high-sensitivity series (baseline, 2hr, 4hr, 6hr) (10/24/2023 3:38 AM GROCERY BAGGER) Trop I hs 206(C) <=35 ng/L [facility] Comment: reviewed Interpretive Data For further hscTnI resources including the diagnostic algorithm and an aid in interpretation, copy and paste this link: https://bjhlab.testcatalog.org/show/hsTrop-1 Current Interpretive Data last revised 2020. Blood 10/24/2023 3:38 AM GROCERY BAGGER 10/24/2023 4:02 AM GROCERY BAGGER Hayder Vu Jr., MD LAB BLOOD ORDERABLE S Final Result Performing Organization Address City/[facility] Co de Phone Number [facility] [place] [address] * Lactate (10/24/2023 3:38 AM GROCERY BAGGER) Lactate 0.9 0.7 - 2.0 mmol/L [facility] Blood 10/24/2023 3:38 AM GROCERY BAGGER 10/24/2023 4:02 AM GROCERY BAGGER Hayder Vu Jr., MD LAB BLOOD ORDERABLE S Final Result Performing Organization Address [facility] de Phone Number [facility] [place] [address] * POCT glucose (10/24/2023 3:25 AM GROCERY BAGGER) Glucose, POC 180 70 - 199 mg/dL [facility] Blood 10/24/2023 3:25 AM GROCERY BAGGER 10/24/2023 3:25 AM GROCERY BAGGER Hayder Vu Jr., MD LAB POCT ORDERABLES - DEVICE Final Result Performing Organization Address [facility] [place] [address] * (ABNORMAL) POCT glucose (10/24/2023 12:20 AM GROCERY BAGGER) Glucose, POC 252(H) 70 - 199 mg/dL [facility] Blood 10/24/2023 12:2 0 AM GROCERY BAGGER 10/24/2023 12:20 AM GROCERY BAGGER Hayder Vu Jr., MD LAB POCT ORDERABLES - DEVICE Final Result Performing Organization Address [facility] de Phone Number [facility] [place] [address] * (ABNORMAL) aPTT (10/24/2023 12:20 AM GROCERY BAGGER) Pathologist [facility] aPTT 27(L) 28 - 38 sec [facility] Comment: Interpretive Data Heparin therapeutic range: 66.0 - 100.0 seconds. Range based on correlation with therapeutic heparin activity range of 0.3 - 0.7 Units/mL. Current interpretive data was last revised on 2023. Blood 10/24/2023 12:2 0 AM GROCERY BAGGER 10/24/2023 12:31 AM GROCERY BAGGER Narrative [facility] - 10/24/2023 12:58 AM GROCERY BAGGER Baseline prior to heparin initiation Hayder Vu Jr., MD LAB BLOOD ORDERABLE S Final Result Performing Organization Address [facility] de Phone Number [facility] [place] [address] * (ABNORMAL) CBC without differential (10/24/2023 12:20 AM GROCERY BAGGER) [facility] WBC 22.9(H) 3.8 - 9.9 K/cumm [facility] Hgb 9.0(L) 13.0 - 17.5 g/dL [facility] Hct 25.4(L) 38.9 - 50.3 % [facility] Plt 366 150 - 400 K/cumm [facility] MPV 10.8 9.1 - 12.3 fL [facility] RBC 2.76(L) 4.30 - 5.80 M/cumm [facility] MCV 92.0 81.3 - 96.4 fL [facility] MCH 32.6 27.1 - 33.3 pg [facility] MCHC 35.4 32.3 - 35.7 g/dL [facility] RDW CV 12.5 11.1 - 14.9 % [facility] RDW SD 41.8 35.7 - 48.1 fL [facility] NRBC abs 0.00 0.00 - 0.01 K/cumm [facility] Blood 10/24/2023 12:2 0 AM GROCERY BAGGER 10/24/2023 12:45 AM GROCERY BAGGER Narrative [facility] - 10/24/2023 12:55 AM GROCERY BAGGER Baseline prior to heparin initiation Hayder Vu Jr., MD LAB BLOOD ORDERABLE S Final Result Performing Organization Address [facility] de Phone Number [facility] [place] [address] * Protime-INR (10/24/2023 12:20 AM GROCERY BAGGER) PT 13.7 10.3 - 13.7 sec [facility] INR 1.20 0.90 - 1.20 [facility] Comment: Interpretive data Oral anticoagulant therapeutic ranges: Venous thromboembolism prophylaxis or treatment: 2.0-3.0 CARDIOLOGY Standard range: 2.0-3.0 High-intensity range: 2.5-3.5 Refer to indication-specific guidelines for appropriate target ranges for prosthetic heart valve replacement. Current interpretive data was last revised on 2019. Blood 10/24/2023 12:2 0 AM GROCERY BAGGER 10/24/2023 12:31 AM GROCERY BAGGER Narrative [facility] - 10/24/2023 12:58 AM GROCERY BAGGER Baseline prior to heparin initiation Hayder Vu Jr., MD LAB BLOOD ORDERABLE S Final Result Performing Organization Address [facility] Co de Phone Number [facility] [place] [address] * HIV 1/2 Antibody plus p24 Antigen Blood (10/24/2023 12:20 AM GROCERY BAGGER) HIV 1/2 ab + p24 ag Nonreactive Nonreactive [facility] Comment:Nonreactive for HIV- 1 antigen and HIV-1/HIV-2 antibodies. No laboratory evidence of HIV infection. If acute HIV infection is suspected, consider testing for HIV-1 RNA. Current interpretive data was last revised on 22. Blood 10/24/2023 12:2 0 AM GROCERY BAGGER 10/24/2023 12:45 AM GROCERY BAGGER us Hayder Vu Jr., MD LAB MICROBIOLOGY - GENERAL ORDERABLES Final Result [facility] [place] [address] * CT Chest PE (CTA) Abdomen Pelvis W Contrast (10/23/2023 11:48 PM GROCERY BAGGER) Anatomical Region Laterality Modality Body N/A Computed Tomogra phy 10/24/2023 12:1 1 AM GROCERY BAGGER Impressions 10/24/2023 7:15 AM GROCERY BAGGER 1. ??Acute pulmonary emboli involving the distal [...] Clemente Mathew M.D. Narrative 10/24/2023 7:15 AM GROCERY BAGGER EXAMINATION: CT CHEST PE (CTA) ABDOMEN PELVIS [...] it. Electronically signed by: Clemente Mathew M.D. Hayder Vu Jr., MD IMG CT PROCEDURES F inal Result * CT Head WO Contrast (10/23/2023 11:48 PM GROCERY BAGGER) Anatomical Region Laterality Modality Head and Neck N/A Computed Tomogra phy 10/24/2023 12:3 6 AM GROCERY BAGGER Impressions 10/24/2023 11:45 AM GROCERY BAGGER Subtle white matter hypoattenuation with loss of [...] Zac Mcgarry M.D. Narrative 10/24/2023 11:45 AM GROCERY BAGGER EXAMINATION: CT head without contrast HISTORY: 73-year-old [...] Result * Critical Care (10/23/2023 11:47 PM GROCERY BAGGER) Narrative Wilder Arceo Jr., MD - 10/23/2023 11:47 PM GROCERY BAGGER Wilder Arceo Jr., MD ? 10/24/2023 ??3:28 [...] plan with the ICU team and other medical/regulatory services consultant staff, making frequent assessments and decisions [...] * (ABNORMAL) Manual Differential (10/23/2023 11:03 PM GROCERY BAGGER) Differential Auto [facility] Neutrophil abs 23.5(H) 1.5 - 6.5 K/cumm [facility] Imm gran abs 0.9(H) 0.0 - 0.1 K/cumm [facility] Lymphocyte abs 1.1 0.8 - 3.3 K/cumm [facility] Monocyte abs 1.1(H) 0.2 - 0.8 K/cumm [facility] Eosinophil abs 0.1 0.0 - 0.5 K/cumm [facility] Basophil abs 0.1 0.0 - 0.1 K/cumm [facility] Neutrophil pct 88.2 % [facility] Comment: Interpretive Data Percent cell count reference ranges are not reported, since discordance with absolute values may lead to misinterpretation of CBC data. Current Interpretive Data was last revised on 2018. Imm gran pct 3.4 % [facility] Comment: Interpretive Data Percent cell count reference ranges are not reported, since discordance with absolute values may lead to misinterpretation of CBC data. Current Interpretive Data was last revised on 2018. Lymphocyte pct 3.9 % [facility] Comment: Interpretive Data Percent cell count reference ranges are not reported, since discordance with absolute values may lead to misinterpretation of CBC data. Current Interpretive Data was last revised on 2018. Monocyte pct 3.9 % [facility] Comment: Interpretive Data Percent cell count reference ranges are not reported, since discordance with absolute values may lead to misinterpretation of CBC data. Current Interpretive Data was last revised on 2018. Eosinophil pct 0.2 % [facility] Comment: Interpretive Data Percent cell count reference ranges are not reported, since discordance with absolute values may lead to misinterpretation of CBC data. Current Interpretive Data was last revised on 2018. Basophil pct 0.4 % [facility] Comment: Interpretive Data Percent cell count reference ranges are not reported, since discordance with absolute values may lead to misinterpretation of CBC data. Current Interpretive Data was last revised on 2018. RBC morphology Present(A) [facility] Polychromasia 3-7/HPF(A) [facility] Poikilocytosis Slight(A) [facility] Platelet estimate Adequate [facility] Blood 10/23/2023 11:0 3 PM GROCERY BAGGER 10/23/2023 11:43 PM GROCERY BAGGER Jimenez Henao MD LAB BLOOD ORDERABLES Final Result [facility] [place] [address] * (ABNORMAL) Differential, auto (10/23/2023 11:03 PM GROCERY BAGGER) Neutrophil abs 23.5(H) 1.5 - 6.5 K/cumm [facility] Imm gran abs 0.9(H) 0.0 - 0.1 K/cumm [facility] Lymphocyte abs 1.1 0.8 - 3.3 K/cumm [facility] Monocyte abs 1.1(H) 0.2 - 0.8 K/cumm [facility] Eosinophil abs 0.1 0.0 - 0.5 K/cumm [facility] Basophil abs 0.1 0.0 - 0.1 K/cumm [facility] Neutrophil pct 88.2 % [facility] Comment: Interpretive Data Percent cell count reference ranges are not reported, since discordance with absolute values may lead to misinterpretation of CBC data. Current Interpretive Data was last revised on 2018. Imm gran pct 3.4 % [facility] Comment: Interpretive Data Percent cell count reference ranges are not reported, since discordance with absolute values may lead to misinterpretation of CBC data. Current Interpretive Data was last revised on 2018. [facility]ocyte pct 3.9 % [facility] Comment: Interpretive Data Percent cell count reference ranges are not reported, since discordance with absolute values may lead to misinterpretation of CBC data. Current Interpretive Data was last revised on 2018. Monocyte pct 3.9 % [facility] Comment: Interpretive Data Percent cell count reference ranges are not reported, since discordance with absolute values may lead to misinterpretation of CBC data. Current Interpretive Data was last revised on 2018. Eosinophil pct 0.2 % [facility] Comment: Interpretive Data Percent cell count reference ranges are not reported, since discordance with absolute values may lead to misinterpretation of CBC data. Current Interpretive Data was last revised on 2018. Basophil pct 0.4 % [facility] Comment: Interpretive Data Percent cell count reference ranges are not reported, since discordance with absolute values may lead to misinterpretation of CBC data. Current Interpretive Data was last revised on 2018. Blood 10/23/2023 11:0 3 PM GROCERY BAGGER 10/23/2023 11:11 PM GROCERY BAGGER Jimenez Henao MD LAB BLOOD ORDERABLES Final Result Performing Organization Address [facility] de Phone Number [facility] [place] [address] * (ABNORMAL) Blood gas, arterial (10/23/2023 11:03 PM GROCERY BAGGER) pH, Art 7.38 7.35 - 7.45 [facility] PCO2, Arterial 37 35 - 45 mmHg [facility] PO2, Arterial 133(H) 83 - 108 mmHg [facility] HCO3 Art (Calculated) 22 20 - 30 mmol/L [facility] BE, art -3 mmol/L [facility] Comment: Interpretive Data No Reference Range Established Current Interpretive Data was last revised on 2017 O2 Sat Art (Measured) 99(H) 90 - 95 % [facility] Blood 10/23/2023 11:0 3 PM GROCERY BAGGER 10/23/2023 11:10 PM GROCERY BAGGER Hayder Vu Jr., MD LAB BLOOD ORDERABLE S Final Result Performing Organization Address [facility] de Phone Number [facility] [place] [address] * (ABNORMAL) Calcium, ionized (10/23/2023 11:03 PM GROCERY BAGGER) Calcium, Ionized 4.41(L) 4.50 - 5.10 mg/dL [facility] Blood 10/23/2023 11:0 3 PM GROCERY BAGGER 10/23/2023 11:13 PM GROCERY BAGGER Hayder Vu Jr., MD LAB BLOOD ORDERABLE S Final Result [facility] [place] [address] * (ABNORMAL) CBC with auto differential (10/23/2023 11:03 PM GROCERY BAGGER) WBC 26.7(H) 3.8 - 9.9 K/cumm [facility] Hgb 9.0(L) 13.0 - 17.5 g/dL [facility] Hct 27.3(L) 38.9 - 50.3 % [facility] Plt 418(H) 150 - 400 K/cumm [facility] MPV 11.3 9.1 - 12.3 fL [facility] RBC 2.88(L) 4.30 - 5.80 M/cumm [facility] MCV 94.8 81.3 - 96.4 fL [facility] Comment:MCV delta due to manpreet gical procedure. Spoke to Edwige Porras RN. MCH 31.3 27.1 - 33.3 pg [facility] MCHC 33.0 32.3 - 35.7 g/dL [facility] RDW CV 12.4 11.1 - 14.9 % [facility] RDW SD 43.5 35.7 - 48.1 fL [facility] NRBC abs 0.00 0.00 - 0.01 K/cumm [facility] Blood 10/23/2023 11:0 3 PM GROCERY BAGGER 10/23/2023 11:11 PM GROCERY BAGGER Tia Nolan NP LAB BLOOD ORDERABLES E dited Result - Final [facility] [place] [address] * (ABNORMAL) Lipid panel (10/23/2023 11:02 PM GROCERY BAGGER) Cholesterol 162 30 - 199 mg/dL [facility] Comment: Interpretive Data Ages < or [...] on 2018. LDL, calculated 101 <=129 mg/dL [facility] Comment: Interpretive Data Ages < or [...] revised on 2018. Non-HDL Cholesterol 128 mg/dL [facility] Comment: Interpretive Data Ages < or [...] last revised on 2018. Chol/HDL ratio 5 [facility] Blood 10/23/2023 11:0 2 PM GROCERY BAGGER 10/23/2023 11:14 PM GROCERY BAGGER Narrative [facility] - 10/24/2023 11:06 AM GROCERY BAGGER This lipid panel was automatically ordered due to a significant change in Troponin. The dietary status of the patient at the collection time should be correlated with the lipid results. us Hayder Vu Jr., MD LAB BLOOD ORDERABLE S Final Result [facility] [place] [address] * eGFR (10/23/2023 11:02 PM GROCERY BAGGER) eGFR 74 >=60 mL/min/1. 73 m2 [facility]URA [...] reviewed 2021. Blood 10/23/2023 11:0 2 PM GROCERY BAGGER 10/23/2023 11:14 PM GROCERY BAGGER us Hayder Vu Jr., MD LAB BLOOD ORDERABLE S Final Result Performing Organization Address City/[facility] Co de Phone Number [facility] [place] [address] * (ABNORMAL) Phosphorus (10/23/2023 11:02 PM GROCERY BAGGER) [facility] Phosphorus, pl 4.6(H) 2.3 - 4.5 mg/dL [facility] Blood 10/23/2023 11:0 2 PM GROCERY BAGGER 10/23/2023 11:13 PM GROCERY BAGGER us Hayder Vu Jr., MD LAB BLOOD ORDERABLE S Final Result Performing Organization Address [facility] Co de Phone Number [facility] [place] [address] * Magnesium (10/23/2023 11:02 PM GROCERY BAGGER) [facility] Magnesium 2.0 1.4 - 2.5 mg/dL [facility] Blood 10/23/2023 11:0 2 PM GROCERY BAGGER 10/23/2023 11:13 PM GROCERY BAGGER us Hayder Vu Jr., MD LAB BLOOD ORDERABLE S Final Result Performing Organization Address [facility] Co de Phone Number [facility] [place] [address] * (ABNORMAL) Comprehensive metabolic panel (10/23/2023 11:02 PM GROCERY BAGGER) [facility] Sodium 137 135 - 145 mmol/L [facility] Potassium, pl 4.1 3.3 - 4.9 mmol/L [facility] Chloride 102 97 - 110 mmol/L [facility] CO2 23 22 - 32 mmol/L [facility] Anion gap 12 2 - 15 mmol/L [facility] BUN 12 6 - 25 mg/dL [facility] Creatinine 1.07 0.80 - 1.30 mg/dL [facility] Glucose 245(H) 70 - 199 mg/dL [facility] Comment: Interpretive Data Fasting glucose >/= [...] 2022. Calcium 8.3(L) 8.5 - 10.3 mg/dL [facility] Bilirubin, total 0.6 0.1 - 1.2 mg/dL [facility] Protein, pl 5.9(L) 6.5 - 8.5 g/dL [facility] Albumin 2.6(L) 3.5 - 5.0 g/dL [facility] Alk phos 91 40 - 130 Units/L [facility] ALT 88(H) 7 - 55 Units/L [facility] AST 83(H) 10 - 50 Units/L [facility] Blood 10/23/2023 11:0 2 PM GROCERY BAGGER 10/23/2023 11:13 PM GROCERY BAGGER us Hayder Vu Jr., MD LAB BLOOD ORDERABLE S Final Result [facility] [place] [address] * (ABNORMAL) aPTT (10/23/2023 11:02 PM GROCERY BAGGER) [facility] Signature aPTT 25(L) 28 - 38 sec [facility] Comment: Interpretive Data Heparin therapeutic range: 66.0 - 100.0 seconds. Range based on correlation with therapeutic heparin activity range of 0.3 - 0.7 Units/mL. Current interpretive data was last revised on 2023. Blood 10/23/2023 11:0 2 PM GROCERY BAGGER 10/23/2023 11:58 PM GROCERY BAGGER Oneyda Foley NP LAB BLOOD ORDERABLES Final Res ult Performing Organization Address [facility] Co de Phone Number [facility] [place] [address] * (ABNORMAL) Protime-INR (10/23/2023 11:02 PM GROCERY BAGGER) PT 13.9(H) 10.3 - 13.7 sec [facility] INR 1.22(H) 0.90 - 1.20 [facility] Comment: Interpretive data Oral anticoagulant therapeutic ranges: Venous thromboembolism prophylaxis or treatment: 2.0-3.0 CARDIOLOGY Standard range: 2.0-3.0 High-intensity range: 2.5-3.5 Refer to indication-specific guidelines for appropriate target ranges for prosthetic heart valve replacement. Current interpretive data was last revised on 2019. Blood 10/23/2023 11:0 2 PM GROCERY BAGGER 10/23/2023 11:58 PM GROCERY BAGGER Oneyda Foley NP LAB BLOOD ORDERABLES Final Res ult Performing Organization Address [facility] de Phone Number [facility] [place] [address] * (ABNORMAL) POC Blood Gas and Chemistries, Arterial - (10/23/2023 10:39 PM GROCERY BAGGER) pH, Art POC 7.37 7.35 - 7.45 [facility] pCO2, Art POC 38 35 - 45 mmHg [facility] pO2, Art POC 137(H) 83 - 108 mmHg [facility] Na, POC 137 135 - 145 mmol/L [facility] K POC 4.0 3.3 - 4.9 mmol/L [facility] Comment: Interpretive Data This method is not able to assess for hemolysis, which may falsely increase potassium concentrations. If further testing is needed to evaluate this result, consider in-laboratory plasma potassium. Current Interpretive Data was last revised on 2022. Cl, POC 107 97 - 110 mmol/L [facility] Ionized Ca, POC 4.58 4.50 - 5.10 mg/dL [facility] Glucose, POC 247(H) 70 - 199 mg/dL [facility] Lactate, POC 4.6(C) 0.7 - 2.2 mmol/L [facility] SO2 (crys) arterial 100(H) 90 - 95 % [facility] Base excess, POC -3.0 mmol/L [facility] HCO3, Art POC 22 20 - 30 mmol/L [facility] Hct, POC 28.0(L) 41.4 - 51.6 % [facility] O2 Sat, Art POC (Calc) 99 % [facility] Total Hb, POC 9.2(L) 13.8 - 17.2 g/dL [facility] Blood 10/23/2023 10:3 9 PM GROCERY BAGGER 10/23/2023 10:39 PM GROCERY BAGGER Hayder Vu Jr., MD LAB POCT ORDERABLES - DEVICE Final Result [facility] [place] [address] * (ABNORMAL) POC Blood Gas and Chemistries, Arterial - (10/23/2023 10:07 PM GROCERY BAGGER) pH, Art POC 7.12(C) 7.35 - 7.45 [facility] pCO2, Art POC 54(H) 35 - [address] [facility] pO2, Art POC 287(H) 83 - 108 mmHg [facility] Na, POC 137 135 - 145 mmol/L [facility] K POC 4.0 3.3 - 4.9 mmol/L [facility] Comment: Interpretive Data This method is not able to assess for hemolysis, which may falsely increase potassium concentrations. If further testing is needed to evaluate this result, consider in-laboratory plasma potassium. Current Interpretive Data was last revised on 2022. Cl, POC 104 97 - 110 mmol/L [facility] Ionized Ca, POC 4.67 4.50 - 5.10 mg/dL [facility] Glucose, POC 235(H) 70 - 199 mg/dL [facility] Lactate, POC 7.2(C) 0.7 - 2.2 mmol/L [facility] SO2 (crys) arterial 100(H) 90 - 95 % [facility] Base excess, POC -11.4 mmol/L [facility] HCO3, Art POC 16(L) 20 - 30 mmol/L [facility] Hct, POC 29.0(L) 41.4 - 51.6 % [facility] O2 Sat, Art POC (Calc) 100 % [facility] Total Hb, POC 9.5(L) 13.8 - 17.2 g/dL [facility] Blood 10/23/2023 10:0 7 PM GROCERY BAGGER 10/23/2023 10:07 PM GROCERY BAGGER us Pipe Moseley MD LAB POCT ORDERABLES - DEV ICE Final Result [facility] [place] [address] * eGFR (10/23/2023 9:52 PM GROCERY BAGGER) eGFR 75 >=60 mL/min/1. 73 m2 [facility] Comment: Interpretive Data Reference Interval Normal [...] last reviewed 2021. Blood 10/23/2023 9:52 PM GROCERY BAGGER 10/23/2023 10:01 PM GROCERY BAGGER us Myke Smith MD PhD LAB BLOOD ORDERA BLES Final Result [facility] [place] [address] * (ABNORMAL) Basic metabolic panel (10/23/2023 9:52 PM GROCERY BAGGER) Sodium 143 135 - 145 mmol/L [facility] Potassium, pl 3.8 3.3 - 4.9 mmol/L [facility] Chloride 102 97 - 110 mmol/L [facility] CO2 20(L) 22 - 32 mmol/L [facility] Anion gap 21(H) 2 - 15 mmol/L [facility] BUN 12 6 - 25 mg/dL [facility] Creatinine 1.06 0.80 - 1.30 mg/dL [facility] Glucose 208(H) 70 - 199 mg/dL [facility] Comment: Interpretive Data Fasting glucose >/= [...] 2022. Calcium 8.9 8.5 - 10.3 mg/dL [facility] Blood 10/23/2023 9:52 PM GROCERY BAGGER 10/23/2023 10:01 PM GROCERY BAGGER Myke Smith MD PhD LAB BLOOD ORDERA BLES Final Result Performing Organization Address [facility] Co de Phone Number [facility] [place] [address] * (ABNORMAL) CBC without differential (10/23/2023 9:52 PM GROCERY BAGGER) [facility] WBC 23.8(H) 3.8 - 9.9 K/cumm [facility] Hgb 9.8(L) 13.0 - 17.5 g/dL [facility] Hct 32.0(L) 38.9 - 50.3 % [facility] Plt 458(H) 150 - 400 K/cumm [facility] MPV 11.1 9.1 - 12.3 fL [facility] RBC 3.14(L) 4.30 - 5.80 M/cumm [facility] MCV 101.9(H) 81.3 - 96.4 fL [facility] Comment:MCV delta due to manpreet gical procedure. MCH 31.2 27.1 - 33.3 pg [facility] MCHC 30.6(L) 32.3 - 35.7 g/dL [facility] RDW CV 12.5 11.1 - 14.9 % [facility] RDW SD 46.9 35.7 - 48.1 fL [facility] NRBC abs 0.03(H) 0.00 - 0.01 K/cumm [facility] Blood 10/23/2023 9:52 PM GROCERY BAGGER 10/23/2023 10:02 PM GROCERY BAGGER Result [facility] Myke Smith MD PhD LAB BLOOD ORDERA BLES Final Result Performing Organization Address [facility] Co de Phone Number [facility] [place] [address] * (ABNORMAL) POC Blood Gas and Chemistries, Venous - (10/23/2023 9:50 PM GROCERY BAGGER) pH, Arturo POC 6.99(C) 7.32 - 7.43 [facility] pCO2, arturo POC 84(C) 40 - 50 mmHg [facility] pO2, arturo POC 42 mmHg [facility] Na, POC 139 135 - 145 mmol/L [facility] K POC 5.4(H) 3.3 - 4.9 mmol/L [facility] Comment: Interpretive Data This method is not able to assess for hemolysis, which may falsely increase potassium concentrations. If further testing is needed to evaluate this result, consider in-laboratory plasma potassium. Current Interpretive Data was last revised on 2022. Cl, POC 103 97 - 110 mmol/L [facility] Ionized Ca, POC 4.70 4.50 - 5.10 mg/dL [facility] Glucose, POC 172 70 - 199 mg/dL [facility] Lactate, POC 9.2(C) 0.7 - 2.2 mmol/L [facility] O2 Sat, Arturo POC (Crys) 48 % [facility] Base excess, POC -11.7 mmol/L [facility] Hct, POC 30.0(L) 41.4 - 51.6 % [facility] Total Hb, POC 10.0(L) 13.8 - 17.2 g/dL [facility] O2 Sat, Arturo POC (Calc) 48 % [facility] Blood 10/23/2023 9:50 PM GROCERY BAGGER 10/23/2023 9:50 PM GROCERY BAGGER us Pipe Moseley MD LAB POCT ORDERABLES - DEV ICE Final Result [facility] [place] [address] * [place] Fluoroscopy < 1 Hour (10/23/2023 8:45 PM GROCERY BAGGER) Narrative RAD_PACS_[facility] - 10/23/2023 8:46 PM GROCERY BAGGER The images from this study are not interpreted by Radiology. ??Please refer to the physician's procedure / OR operative note. us Hayder Vu Jr., MD IMG FLUOROSCOPY PRO CEDURES Final Result Performing Organization Address City/[facility]/ZIP Co de Phone Number [email or web address] * eGFR (10/22/2023 9:39 PM GROCERY BAGGER) eGFR 66 >=60 mL/min/1. 73 m2 [facility] Comment: Interpretive Data Reference Interval Normal [...] last reviewed 2021. Blood 10/22/2023 9:39 PM GROCERY BAGGER 10/22/2023 10:23 PM GROCERY BAGGER us Jimenez Henao MD LAB BLOOD ORDERABLES Final Result Performing Organization Address City/[facility] Co de Phone Number [facility] [place] [address] * (ABNORMAL) Differential, auto (10/22/2023 9:39 PM GROCERY BAGGER) Neutrophil abs 6.2 1.5 - 6.5 K/cumm [facility] Imm gran abs 0.1 0.0 - 0.1 K/cumm [facility] Lymphocyte abs 1.3 0.8 - 3.3 K/cumm [facility] Monocyte abs 1.1(H) 0.2 - 0.8 K/cumm [facility] Eosinophil abs 0.1 0.0 - 0.5 K/cumm [facility] Basophil abs 0.1 0.0 - 0.1 K/cumm [facility] Neutrophil pct 70.2 % [facility] Comment: Interpretive Data Percent cell count reference ranges are not reported, since discordance with absolute values may lead to misinterpretation of CBC data. Current Interpretive Data was last revised on 2018. Imm gran pct 1.0 % [facility] Comment: Interpretive Data Percent cell count reference ranges are not reported, since discordance with absolute values may lead to misinterpretation of CBC data. Current Interpretive Data was last revised on 2018. Lymphocyte pct 14.4 % [facility] Comment: Interpretive Data Percent cell count reference ranges are not reported, since discordance with absolute values may lead to misinterpretation of CBC data. Current Interpretive Data was last revised on 2018. Monocyte pct 12.4 % [facility] Comment: Interpretive Data Percent cell count reference ranges are not reported, since discordance with absolute values may lead to misinterpretation of CBC data. Current Interpretive Data was last revised on 2018. Eosinophil pct 1.4 % [facility] Comment: Interpretive Data Percent cell count reference ranges are not reported, since discordance with absolute values may lead to misinterpretation of CBC data. Current Interpretive Data was last revised on 2018. Basophil pct 0.6 % [facility] Comment: Interpretive Data Percent cell count reference ranges are not reported, since discordance with absolute values may lead to misinterpretation of CBC data. Current Interpretive Data was last revised on 2018. Blood 10/22/2023 9:39 PM GROCERY BAGGER 10/22/2023 10:17 PM GROCERY BAGGER Result Caity Henao MD LAB BLOOD ORDERABLES Final Result Performing Organization Address City/[facility]/ZIP Co de Phone Number [facility] [place] [address] * Type and screen (10/22/2023 9:39 PM GROCERY BAGGER) Jigna, indirect Negative ABO Rh O Positive [facility] Blood 10/22/2023 9:39 PM GROCERY BAGGER 10/22/2023 10:24 PM GROCERY BAGGER Narrative [facility] - 10/22/2023 11:35 PM GROCERY BAGGER Has the patient had Daratumumab or Isatuximab in the past 6 months?->Unknown Result Caity Henao MD LAB BLOOD BANK TEST O RDERABLES Final Result Performing Organization Address [facility] [place] [address] * Protime-INR (10/22/2023 9:39 PM GROCERY BAGGER) Pathologist [facility] PT 12.6 10.3 - 13.7 sec [facility] INR 1.11 0.90 - 1.20 [facility] Comment: Interpretive data Oral anticoagulant therapeutic ranges: Venous thromboembolism prophylaxis or treatment: 2.0-3.0 CARDIOLOGY Standard range: 2.0-3.0 High-intensity range: 2.5-3.5 Refer to indication-specific guidelines for appropriate target ranges for prosthetic heart valve replacement. Current interpretive data was last revised on 2019. Blood 10/22/2023 9:39 PM GROCERY BAGGER 10/22/2023 10:26 PM GROCERY BAGGER Result Caity Henao MD LAB BLOOD ORDERABLES Final Result Performing Organization Address City/[facility] [place] [address] * (ABNORMAL) CBC with auto differential (10/22/2023 9:39 PM GROCERY BAGGER) [facility] WBC 8.8 3.8 - 9.9 K/cumm [facility] Hgb 10.5(L) 13.0 - 17.5 g/dL [facility] Hct 30.7(L) 38.9 - 50.3 % [facility] Plt 378 150 - 400 K/cumm [facility] MPV 10.6 9.1 - 12.3 fL [facility] RBC 3.29(L) 4.30 - 5.80 M/cumm [facility] MCV 93.3 81.3 - 96.4 fL [facility] MCH 31.9 27.1 - 33.3 pg [facility] MCHC 34.2 32.3 - 35.7 g/dL [facility] RDW CV 12.4 11.1 - 14.9 % [facility] RDW SD 43.1 35.7 - 48.1 fL [facility] NRBC abs 0.00 0.00 - 0.01 K/cumm [facility] Blood 10/22/2023 9:39 PM GROCERY BAGGER 10/22/2023 10:17 PM GROCERY BAGGER Tia Nolan DRAWER IN DOBBY LOOM LAB BLOOD ORDERABLES F inal Result [facility] [place] [address] * (ABNORMAL) Basic metabolic panel (10/22/2023 9:39 PM GROCERY BAGGER) [facility] Sodium 134(L) 135 - 145 mmol/L [facility] Potassium, pl 4.6 3.3 - 4.9 mmol/L [facility] Chloride 99 97 - 110 mmol/L [facility] CO2 30 22 - 32 mmol/L [facility] Anion gap 5 2 - 15 mmol/L [facility] BUN 12 6 - 25 mg/dL [facility] Creatinine 1.17 0.80 - 1.30 mg/dL [facility] Glucose 121 70 - 199 mg/dL [facility] Comment: Interpretive Data Fasting glucose >/= [...] 2022. Calcium 8.8 8.5 - 10.3 mg/dL [facility] Blood 10/22/2023 9:39 PM GROCERY BAGGER 10/22/2023 10:23 PM GROCERY BAGGER us Tia Nolan DRAWER IN [employer]BBY [employer]OM LAB BLOOD ORDERABLES F inal Result Performing Organization Address City/State/[facility] Co de Phone Number [facility] [place] [address] * XR Chest 1 View (10/22/2023 6:24 AM GROCERY BAGGER) Anatomical Region Laterality Modality Body, Chest N/A Computed Radiogr aphy 10/22/2023 8:41 AM GROCERY BAGGER Impressions 10/22/2023 12:03 PM GROCERY BAGGER Comparison is made to CT chest abdomen [...] Maritza Miranda M.D. Narrative 10/22/2023 12:03 PM GROCERY BAGGER EXAMINATION: 1 view chest radiograph Procedure Note [...] Resul t * eGFR (10/21/2023 10:52 PM GROCERY BAGGER) eGFR 78 >=60 mL/min/1. 73 m2 [facility] Comment: Interpretive Data Reference Interval Normal [...] reviewed 2021. Blood 10/21/2023 10:5 2 PM GROCERY BAGGER 10/21/2023 11:16 PM GROCERY BAGGER Jimenez Henao MD LAB BLOOD ORDERABLES Final Result [facility] [place] [address] * (ABNORMAL) Differential, auto (10/21/2023 10:52 PM GROCERY BAGGER) Neutrophil abs 5.0 1.5 - 6.5 K/cumm [facility] Imm gran abs 0.1 0.0 - 0.1 K/cumm [facility] Lymphocyte abs 1.4 0.8 - 3.3 K/cumm [facility] Monocyte abs 1.1(H) 0.2 - 0.8 K/cumm [facility] Eosinophil abs 0.1 0.0 - 0.5 K/cumm [facility] Basophil abs 0.0 0.0 - 0.1 K/cumm [facility] Neutrophil pct 65.0 % [facility] Comment: Interpretive Data Percent cell count reference ranges are not reported, since discordance with absolute values may lead to misinterpretation of CBC data. Current Interpretive Data was last revised on 2018. Imm gran pct 1.3 % [facility] Comment: Interpretive Data Percent cell count reference ranges are not reported, since discordance with absolute values may lead to misinterpretation of CBC data. Current Interpretive Data was last revised on 2018. Lymphocyte pct 17.8 % [facility] Comment: Interpretive Data Percent cell count reference ranges are not reported, since discordance with absolute values may lead to misinterpretation of CBC data. Current Interpretive Data was last revised on 2018. Monocyte pct 13.6 % [facility] Comment: Interpretive Data Percent cell count reference ranges are not reported, since discordance with absolute values may lead to misinterpretation of CBC data. Current Interpretive Data was last revised on 2018. Eosinophil pct 1.8 % [facility] Comment: Interpretive Data Percent cell count reference ranges are not reported, since discordance with absolute values may lead to misinterpretation of CBC data. Current Interpretive Data was last revised on 2018. Basophil pct 0.5 % [facility] Comment: Interpretive Data Percent cell count reference ranges are not reported, since discordance with absolute values may lead to misinterpretation of CBC data. Current Interpretive Data was last revised on 2018. Blood 10/21/2023 10:5 2 PM GROCERY BAGGER 10/21/2023 11:17 PM GROCERY BAGGER us Jimenez Henao MD LAB BLOOD ORDERABLES Final Result [facility] [place] [address] * (ABNORMAL) CBC with auto differential (10/21/2023 10:52 PM GROCERY BAGGER) WBC 7.7 3.8 - 9.9 K/cumm [facility] Hgb 10.4(L) 13.0 - 17.5 g/dL [facility] Hct 30.1(L) 38.9 - 50.3 % [facility] Plt 350 150 - 400 K/cumm [facility] MPV 10.8 9.1 - 12.3 fL [facility] RBC 3.31(L) 4.30 - 5.80 M/cumm [facility] MCV 90.9 81.3 - 96.4 fL [facility] MCH 31.4 27.1 - 33.3 pg [facility] MCHC 34.6 32.3 - 35.7 g/dL [facility] RDW CV 12.6 11.1 - 14.9 % [facility] RDW SD 41.8 35.7 - 48.1 fL [facility] NRBC abs 0.00 0.00 - 0.01 K/cumm [facility] Blood 10/21/2023 10:5 2 PM GROCERY BAGGER 10/21/2023 11:17 PM GROCERY BAGGER us Tia Alla Nolan DRAWER IN [employer]BB[employer]OM LAB BLOOD ORDERABLES F inal Result Performing Organization Address City/[facility]/ZIP Co de Phone Number [facility] [place] [address] * Basic metabolic panel (10/21/2023 10:52 PM GROCERY BAGGER) Sodium 136 135 - 145 mmol/L [facility] Potassium, pl 4.5 3.3 - 4.9 mmol/L [facility] Chloride 99 97 - 110 mmol/L [facility] CO2 27 22 - 32 mmol/L [facility] Anion gap 10 2 - 15 mmol/L [facility] BUN 12 6 - 25 mg/dL [facility] Creatinine 1.02 0.80 - 1.30 mg/dL [facility] Glucose 117 70 - 199 mg/dL [facility] Comment: Interpretive Data Fasting glucose >/= [...] 2022. Calcium 8.7 8.5 - 10.3 mg/dL [facility] Blood 10/21/2023 10:5 2 PM GROCERY BAGGER 10/21/2023 11:16 PM GROCERY BAGGER us Tia Nolan DRAWER IN [employer]OM LAB BLOOD ORDERABLES F inal Result Performing Organization Address [facility] Co de Phone Number [facility] [place] [address] * eGFR (10/20/2023 9:38 PM GROCERY BAGGER) eGFR 80 >=60 mL/min/1. 73 m2 [facility] Comment: Interpretive Data Reference Interval Normal [...] last reviewed 2021. Blood 10/20/2023 9:38 PM GROCERY BAGGER 10/20/2023 10:25 PM GROCERY BAGGER us Jimenez Henao MD LAB BLOOD ORDERABLES Final Result [facility] [place] [address] * (ABNORMAL) Differential, auto (10/20/2023 9:38 PM GROCERY BAGGER) Neutrophil abs 5.9 1.5 - 6.5 K/cumm [facility] Imm gran abs 0.2(H) 0.0 - 0.1 K/cumm [facility] Lymphocyte abs 1.1 0.8 - 3.3 K/cumm [facility] Monocyte abs 1.1(H) 0.2 - 0.8 K/cumm [facility] Eosinophil abs 0.2 0.0 - 0.5 K/cumm [facility] Basophil abs 0.1 0.0 - 0.1 K/cumm [facility] Neutrophil pct 69.2 % [facility] Comment: Interpretive Data Percent cell count reference ranges are not reported, since discordance with absolute values may lead to misinterpretation of CBC data. Current Interpretive Data was last revised on 2018. Imm gran pct 2.3 % [facility] Comment: Interpretive Data Percent cell count reference ranges are not reported, since discordance with absolute values may lead to misinterpretation of CBC data. Current Interpretive Data was last revised on 2018. Lymphocyte pct 13.2 % [facility] Comment: Interpretive Data Percent cell count reference ranges are not reported, since discordance with absolute values may lead to misinterpretation of CBC data. Current Interpretive Data was last revised on 2018. Monocyte pct 12.9 % [facility] Comment: Interpretive Data Percent cell count reference ranges are not reported, since discordance with absolute values may lead to misinterpretation of CBC data. Current Interpretive Data was last revised on 2018. Eosinophil pct 1.8 % [facility] Comment: Interpretive Data Percent cell count reference ranges are not reported, since discordance with absolute values may lead to misinterpretation of CBC data. Current Interpretive Data was last revised on 2018. Basophil pct 0.6 % [facility] Comment: Interpretive Data Percent cell count reference ranges are not reported, since discordance with absolute values may lead to misinterpretation of CBC data. Current Interpretive Data was last revised on 2018. Blood 10/20/2023 9:38 PM GROCERY BAGGER 10/20/2023 10:25 PM GROCERY BAGGER us Jimenez Henao MD LAB BLOOD ORDERABLES Final Result [facility] [place] [address] * (ABNORMAL) CBC with auto differential (10/20/2023 9:38 PM GROCERY BAGGER) WBC 8.5 3.8 - 9.9 K/cumm [facility] Hgb 11.0(L) 13.0 - 17.5 g/dL [facility] Comment: Interpretive Data A reference range for this assay has not been established for patients with an unknown legal sex. Please refer to the laboratory test catalog for established sex-specific reference intervals. Current interpretive data was last revised on 2023. Hct 32.7(L) 38.9 - 50.3 % [facility] Comment: Interpretive Data A reference range for this assay has not been established for patients with an unknown legal sex. Please refer to the laboratory test catalog for established sex-specific reference intervals. Current interpretive data was last revised on 2023. Plt 321 150 - 400 K/cumm [facility] MPV 11.0 9.1 - 12.3 fL [facility] RBC 3.50(L) 4.30 - 5.80 M/cumm [facility] Comment: Interpretive Data A reference range for this assay has not been established for patients with an unknown legal sex. Please refer to the laboratory test catalog for established sex-specific reference intervals. Current interpretive data was last revised on 2023. MCV 93.4 81.3 - 96.4 fL [facility] MCH 31.4 27.1 - 33.3 pg [facility] MCHC 33.6 32.3 - 35.7 g/dL [facility] RDW CV 12.5 11.1 - 14.9 % [facility] RDW SD 43.2 35.7 - 48.1 fL [facility] NRBC abs 0.00 0.00 - 0.01 K/cumm [facility] Blood 10/20/2023 9:38 PM GROCERY BAGGER 10/20/2023 10:25 PM GROCERY BAGGER us Tia Nolan NP LAB BLOOD ORDERABLES F inal Result [facility] [place] [address] * (ABNORMAL) Basic metabolic panel (10/20/2023 9:38 PM GROCERY BAGGER) Sodium 134(L) 135 - 145 mmol/L [facility] Potassium, pl 4.5 3.3 - 4.9 mmol/L [facility] Chloride 97 97 - 110 mmol/L [facility] CO2 27 22 - 32 mmol/L [facility] Anion gap 10 2 - 15 mmol/L [facility] BUN 12 6 - 25 mg/dL [facility] Creatinine 1.00 0.80 - 1.30 mg/dL [facility] Glucose 127 70 - 199 mg/dL [facility] Comment: Interpretive Data Fasting glucose >/= [...] 2022. Calcium 8.9 8.5 - 10.3 mg/dL [facility] Blood 10/20/2023 9:38 PM GROCERY BAGGER 10/20/2023 10:25 PM GROCERY BAGGER Tia Nolan DRAWER IN DOBBY LOOM LAB BLOOD ORDERABLES F inal Result [facility] [place] [address] * eGFR (10/19/2023 9:11 PM GROCERY BAGGER) [facility] eGFR 81 >=60 mL/min/1. 73 m2 [facility] Comment: Interpretive Data Reference Interval Normal [...] last reviewed 2021. Blood 10/19/2023 9:11 PM GROCERY BAGGER 10/19/2023 11:30 PM GROCERY BAGGER Jimenez Henao MD LAB BLOOD ORDERABLES Final Result [facility] [place] [address] * (ABNORMAL) Differential, auto (10/19/2023 9:11 PM GROCERY BAGGER) Pathologist [facility] Neutrophil abs 8.2(H) 1.5 - 6.5 K/cumm [facility] Imm gran abs 0.2(H) 0.0 - 0.1 K/cumm [facility] Lymphocyte abs 0.9 0.8 - 3.3 K/cumm [facility] Monocyte abs 0.8 0.2 - 0.8 K/cumm [facility] Eosinophil abs 0.2 0.0 - 0.5 K/cumm [facility] Basophil abs 0.1 0.0 - 0.1 K/cumm [facility] Neutrophil pct 79.6 % [facility] Comment: Interpretive Data Percent cell count reference ranges are not reported, since discordance with absolute values may lead to misinterpretation of CBC data. Current Interpretive Data was last revised on 2018. Imm gran pct 2.0 % [facility] Comment: Interpretive Data Percent cell count reference ranges are not reported, since discordance with absolute values may lead to misinterpretation of CBC data. Current Interpretive Data was last revised on 2018. Lymphocyte pct 8.3 % [facility] Comment: Interpretive Data Percent cell count reference ranges are not reported, since discordance with absolute values may lead to misinterpretation of CBC data. Current Interpretive Data was last revised on 2018. Monocyte pct 8.0 % [facility] Comment: Interpretive Data Percent cell count reference ranges are not reported, since discordance with absolute values may lead to misinterpretation of CBC data. Current Interpretive Data was last revised on 2018. Eosinophil pct 1.6 % [facility] Comment: Interpretive Data Percent cell count reference ranges are not reported, since discordance with absolute values may lead to misinterpretation of CBC data. Current Interpretive Data was last revised on 2018. Basophil pct 0.5 % [facility] Comment: Interpretive Data Percent cell count reference ranges are not reported, since discordance with absolute values may lead to misinterpretation of CBC data. Current Interpretive Data was last revised on 2018. Blood 10/19/2023 9:11 PM GROCERY BAGGER 10/19/2023 11:31 PM GROCERY BAGGER us Jimenez Henao MD LAB BLOOD ORDERABLES Final Result [facility] [place] [address] * (ABNORMAL) CBC with auto differential (10/19/2023 9:11 PM GROCERY BAGGER) WBC 10.3(H) 3.8 - 9.9 K/cumm [facility] Hgb 11.0(L) 13.0 - 17.5 g/dL [facility] Comment: Interpretive Data A reference range for this assay has not been established for patients with an unknown legal sex. Please refer to the laboratory test catalog for established sex-specific reference intervals. Current interpretive data was last revised on 2023. Hct 31.6(L) 38.9 - 50.3 % [facility] Comment: Interpretive Data A reference range for this assay has not been established for patients with an unknown legal sex. Please refer to the laboratory test catalog for established sex-specific reference intervals. Current interpretive data was last revised on 2023. Plt 281 150 - 400 K/cumm [facility] MPV 11.5 9.1 - 12.3 fL [facility] RBC 3.46(L) 4.30 - 5.80 M/cumm [facility] Comment: Interpretive Data A reference range for this assay has not been established for patients with an unknown legal sex. Please refer to the laboratory test catalog for established sex-specific reference intervals. Current interpretive data was last revised on 2023. MCV 91.3 81.3 - 96.4 fL [facility] MCH 31.8 27.1 - 33.3 pg [facility] MCHC 34.8 32.3 - 35.7 g/dL [facility] RDW CV 12.7 11.1 - 14.9 % [facility] RDW SD 42.2 35.7 - 48.1 fL [facility] NRBC abs 0.00 0.00 - 0.01 K/cumm [facility] Blood 10/19/2023 9:11 PM GROCERY BAGGER 10/19/2023 11:31 PM GROCERY BAGGER Tia Nolan NP LAB BLOOD ORDERABLES F inal Result [facility] [place] [address] * Basic metabolic panel (10/19/2023 9:11 PM GROCERY BAGGER) Sodium 135 135 - 145 mmol/L [facility] Potassium, pl 4.3 3.3 - 4.9 mmol/L [facility] Chloride 99 97 - 110 mmol/L [facility] CO2 27 22 - 32 mmol/L [facility] Anion gap 9 2 - 15 mmol/L [facility] BUN 17 6 - 25 mg/dL [facility] Creatinine 0.99 0.80 - 1.30 mg/dL [facility] Glucose 185 70 - 199 mg/dL [facility] Comment: Interpretive Data Fasting glucose >/= [...] 2022. Calcium 8.6 8.5 - 10.3 mg/dL [facility] Blood 10/19/2023 9:11 PM GROCERY BAGGER 10/19/2023 11:30 PM GROCERY BAGGER Tia Nolan DRAWER IN DOBBY LOOM LAB BLOOD ORDERABLES F inal Result [facility] [place] [address] * eGFR (10/18/2023 9:29 PM GROCERY BAGGER) eGFR 87 >=60 mL/min/1. 73 m2 [facility] Comment: Interpretive Data Reference Interval Normal [...] last reviewed 2021. Blood 10/18/2023 9:29 PM GROCERY BAGGER 10/18/2023 10:27 PM GROCERY BAGGER us Jimenez Henao MD LAB BLOOD ORDERABLES Final Result [facility] [place] [address] * (ABNORMAL) Differential, auto (10/18/2023 9:29 PM GROCERY BAGGER) Neutrophil abs 13.6(H) 1.5 - 6.5 K/cumm [facility] Imm gran abs 0.2(H) 0.0 - 0.1 K/cumm [facility] Lymphocyte abs 1.4 0.8 - 3.3 K/cumm [facility] Monocyte abs 1.0(H) 0.2 - 0.8 K/cumm [facility] Eosinophil abs 0.2 0.0 - 0.5 K/cumm [facility] Basophil abs 0.0 0.0 - 0.1 K/cumm [facility] Neutrophil pct 82.8 % [facility] Comment: Interpretive Data Percent cell count reference ranges are not reported, since discordance with absolute values may lead to misinterpretation of CBC data. Current Interpretive Data was last revised on 2018. Imm gran pct 1.5 % [facility] Comment: Interpretive Data Percent cell count reference ranges are not reported, since discordance with absolute values may lead to misinterpretation of CBC data. Current Interpretive Data was last revised on 2018. Lymphocyte pct 8.4 % [facility] Comment: Interpretive Data Percent cell count reference ranges are not reported, since discordance with absolute values may lead to misinterpretation of CBC data. Current Interpretive Data was last revised on 2018. Monocyte pct 6.1 % [facility] Comment: Interpretive Data Percent cell count reference ranges are not reported, since discordance with absolute values may lead to misinterpretation of CBC data. Current Interpretive Data was last revised on 2018. Eosinophil pct 1.0 % [facility] Comment: Interpretive Data Percent cell count reference ranges are not reported, since discordance with absolute values may lead to misinterpretation of CBC data. Current Interpretive Data was last revised on 2018. Basophil pct 0.2 % [facility] Comment: Interpretive Data Percent cell count reference ranges are not reported, since discordance with absolute values may lead to misinterpretation of CBC data. Current Interpretive Data was last revised on 2018. Blood 10/18/2023 9:29 PM GROCERY BAGGER 10/18/2023 10:27 PM GROCERY BAGGER Jimenez Henao MD LAB BLOOD ORDERABLES Final Result [facility] [place] [address] * (ABNORMAL) CBC with auto differential (10/18/2023 9:29 PM GROCERY BAGGER) WBC 16.4(H) 3.8 - 9.9 K/cumm [facility] Hgb 11.3(L) 13.0 - 17.5 g/dL [facility] Comment: Interpretive Data A reference range for this assay has not been established for patients with an unknown legal sex. Please refer to the laboratory test catalog for established sex-specific reference intervals. Current interpretive data was last revised on 2023. Hct 32.8(L) 38.9 - 50.3 % [facility] Comment: Interpretive Data A reference range for this assay has not been established for patients with an unknown legal sex. Please refer to the laboratory test catalog for established sex-specific reference intervals. Current interpretive data was last revised on 2023. Plt 286 150 - 400 K/cumm [facility] MPV 11.3 9.1 - 12.3 fL [facility] RBC 3.53(L) 4.30 - 5.80 M/cumm [facility] Comment: Interpretive Data A reference range for this assay has not been established for patients with an unknown legal sex. Please refer to the laboratory test catalog for established sex-specific reference intervals. Current interpretive data was last revised on 2023. MCV 92.9 81.3 - 96.4 fL [facility] MCH 32.0 27.1 - 33.3 pg [facility] MCHC 34.5 32.3 - 35.7 g/dL [facility] RDW CV 12.6 11.1 - 14.9 % [facility] RDW SD 43.3 35.7 - 48.1 fL [facility] NRBC abs 0.00 0.00 - 0.01 K/cumm [facility] Blood 10/18/2023 9:29 PM GROCERY BAGGER 10/18/2023 10:27 PM GROCERY BAGGER us Tia Nolan DRAWER IN DOBBY LOOM LAB BLOOD ORDERABLES F inal Result [facility] [place] [address] * (ABNORMAL) Basic metabolic panel (10/18/2023 9:29 PM GROCERY BAGGER) Sodium 132(L) 135 - 145 mmol/L [facility] Potassium, pl 4.0 3.3 - 4.9 mmol/L [facility] Chloride 97 97 - 110 mmol/L [facility] CO2 27 22 - 32 mmol/L [facility] Anion gap 8 2 - 15 mmol/L [facility] BUN 16 6 - 25 mg/dL [facility] Creatinine 0.93 0.80 - 1.30 mg/dL [facility] Glucose 151 70 - 199 mg/dL [facility] Comment: Interpretive Data Fasting glucose >/= [...] 2022. Calcium 8.2(L) 8.5 - 10.3 mg/dL [facility] Blood 10/18/2023 9:29 PM GROCERY BAGGER 10/18/2023 10:27 PM GROCERY BAGGER us Tia Nolan NP LAB BLOOD ORDERABLES F inal Result Performing Organization Address City/State/[facility] Co de Phone Number [facility] [place] [address] * Dexa Axial Skeleton Bone Density 1 or 2 Site (10/18/2023 12:45 PM GROCERY BAGGER) Anatomical Region Laterality Modality Body N/A Digital Radiogra phy 10/18/2023 1:29 PM GROCERY BAGGER Impressions 10/18/2023 2:27 PM GROCERY BAGGER ?? 1. The bone mineral density of [...] Bella MD, Ph.D Narrative 10/18/2023 2:27 PM GROCERY BAGGER BONE DENSITOMETRY OF THE SPINE AND HIP [...] Nikki Bella MD, Ph.D Jimenez Henao MD IM DXA PROCEDURES Fi nal Result * [place] Fluoroscopy < 1 Hour (10/18/2023 11:27 AM GROCERY BAGGER) Narrative [facility] - 10/18/2023 11:27 AM GROCERY BAGGER The images from this study are not interpreted by Radiology. ??Please refer to the physician's procedure / OR operative note. us Gabriel Bennett MD IMG FLUOROSCOPY PROCEDURES Fide l Result Performing Organization Address [facility]/ZIP Co de Phone Number [id number] * eGFR (10/17/2023 10:52 PM GROCERY BAGGER) eGFR 83 >=60 mL/min/1. 73 m2 [facility] Comment: Interpretive Data Reference Interval Normal [...] reviewed 2021. Blood 10/17/2023 10:5 2 PM GROCERY BAGGER 10/17/2023 11:04 PM GROCERY BAGGER us Jimenez Henao MD LAB BLOOD ORDERABLES Final Result Performing Organization Address [facility] Co de Phone Number [facility] [place] [address] * (ABNORMAL) Differential, auto (10/17/2023 10:52 PM GROCERY BAGGER) Neutrophil abs 9.0(H) 1.5 - 6.5 K/cumm [facility] Imm gran abs 0.2(H) 0.0 - 0.1 K/cumm [facility] Lymphocyte abs 1.4 0.8 - 3.3 K/cumm [facility] Monocyte abs 0.8 0.2 - 0.8 K/cumm [facility] Eosinophil abs 0.2 0.0 - 0.5 K/cumm [facility] Basophil abs 0.1 0.0 - 0.1 K/cumm [facility] Neutrophil pct 77.7 % [facility] Comment: Interpretive Data Percent cell count reference ranges are not reported, since discordance with absolute values may lead to misinterpretation of CBC data. Current Interpretive Data was last revised on 2018. Imm gran pct 1.7 % [facility] Comment: Interpretive Data Percent cell count reference ranges are not reported, since discordance with absolute values may lead to misinterpretation of CBC data. Current Interpretive Data was last revised on 2018. Lymphocyte pct 11.7 % [facility] Comment: Interpretive Data Percent cell count reference ranges are not reported, since discordance with absolute values may lead to misinterpretation of CBC data. Current Interpretive Data was last revised on 2018. Monocyte pct 6.8 % [facility] Comment: Interpretive Data Percent cell count reference ranges are not reported, since discordance with absolute values may lead to misinterpretation of CBC data. Current Interpretive Data was last revised on 2018. Eosinophil pct 1.7 % [facility] Comment: Interpretive Data Percent cell count reference ranges are not reported, since discordance with absolute values may lead to misinterpretation of CBC data. Current Interpretive Data was last revised on 2018. Basophil pct 0.4 % [facility] Comment: Interpretive Data Percent cell count reference ranges are not reported, since discordance with absolute values may lead to misinterpretation of CBC data. Current Interpretive Data was last revised on 2018. Blood 10/17/2023 10:5 2 PM GROCERY BAGGER 10/17/2023 11:04 PM GROCERY BAGGER us Jimenez Henao MD LAB BLOOD ORDERABLES Final Result Performing Organization Address [facility] de Phone Number [facility] [place] [address] * aPTT (10/17/2023 10:52 PM GROCERY BAGGER) aPTT 32 28 - 38 sec [facility] Comment: Interpretive Data Heparin therapeutic range: 66.0 - 100.0 seconds. Range based on correlation with therapeutic heparin activity range of 0.3 - 0.7 Units/mL. Current interpretive data was last revised on 2023. Blood 10/17/2023 10:5 2 PM GROCERY BAGGER 10/17/2023 11:07 PM GROCERY BAGGER Result Caity Henao MD LAB BLOOD ORDERABLES Final Result Performing Organization Address [facility] de Phone Number [facility] [place] [address] * Protime-INR (10/17/2023 10:52 PM GROCERY BAGGER) PT 12.6 10.3 - 13.7 sec [facility] INR 1.11 0.90 - 1.20 [facility] Comment: Interpretive data Oral anticoagulant therapeutic ranges: Venous thromboembolism prophylaxis or treatment: 2.0-3.0 CARDIOLOGY Standard range: 2.0-3.0 High-intensity range: 2.5-3.5 Refer to indication-specific guidelines for appropriate target ranges for prosthetic heart valve replacement. Current interpretive data was last revised on 2019. Blood 10/17/2023 10:5 2 PM GROCERY BAGGER 10/17/2023 11:07 PM GROCERY BAGGER Result Caity Henao MD LAB BLOOD ORDERABLES Final Result Performing Organization Address [facility] de Phone Number [facility] [place] [address] * (ABNORMAL) CBC with auto differential (10/17/2023 10:52 PM GROCERY BAGGER) [facility] WBC 11.6(H) 3.8 - 9.9 K/cumm [facility] Hgb 11.7(L) 13.0 - 17.5 g/dL [facility] Comment: Interpretive Data A reference range for this assay has not been established for patients with an unknown legal sex. Please refer to the laboratory test catalog for established sex-specific reference intervals. Current interpretive data was last revised on 2023. Hct 33.3(L) 38.9 - 50.3 % [facility] Comment: Interpretive Data A reference range for this assay has not been established for patients with an unknown legal sex. Please refer to the laboratory test catalog for established sex-specific reference intervals. Current interpretive data was last revised on 2023. Plt 256 150 - 400 K/cumm [facility] MPV 11.0 9.1 - 12.3 fL [facility] RBC 3.68(L) 4.30 - 5.80 M/cumm [facility] Comment: Interpretive Data A reference range for this assay has not been established for patients with an unknown legal sex. Please refer to the laboratory test catalog for established sex-specific reference intervals. Current interpretive data was last revised on 2023. MCV 90.5 81.3 - 96.4 fL [facility] MCH 31.8 27.1 - 33.3 pg [facility] MCHC 35.1 32.3 - 35.7 g/dL [facility] RDW CV 12.5 11.1 - 14.9 % [facility] RDW SD 41.4 35.7 - 48.1 fL [facility] NRBC abs 0.00 0.00 - 0.01 K/cumm [facility] Blood 10/17/2023 10:5 2 PM GROCERY BAGGER 10/17/2023 11:04 PM GROCERY BAGGER us Tia Nolan DRAWER IN DOBBY LOOM LAB BLOOD ORDERABLES F inal Result [facility] [place] [address] * (ABNORMAL) Basic metabolic panel (10/17/2023 10:52 PM GROCERY BAGGER) Sodium 133(L) 135 - 145 mmol/L [facility] Potassium, pl 3.5 3.3 - 4.9 mmol/L [facility] Chloride 100 97 - 110 mmol/L [facility] CO2 27 22 - 32 mmol/L [facility] Anion gap 6 2 - 15 mmol/L [facility] BUN 12 6 - 25 mg/dL [facility] Creatinine 0.97 0.80 - 1.30 mg/dL [facility] Glucose 186 70 - 199 mg/dL [facility] Comment: Interpretive Data Fasting glucose >/= [...] 2022. Calcium 8.4(L) 8.5 - 10.3 mg/dL [facility] Blood 10/17/2023 10:5 2 PM GROCERY BAGGER 10/17/2023 11:04 PM GROCERY BAGGER us Tia Nolan DRAWER IN DOBBY LOOM LAB BLOOD ORDERABLES F inal Result Performing Organization Address [facility] Co de Phone Number [facility] [place] [address] * CT Urogram WO 3D (10/16/2023 12:36 PM GROCERY BAGGER) Anatomical Region Laterality Modality Body N/A Computed Tomogra phy 10/16/2023 1:29 PM GROCERY BAGGER Impressions 10/16/2023 1:59 PM GROCERY BAGGER 1. ??Postprocedural changes of percutaneous nephrostomy tube [...] Eric Irene M.D. Narrative 10/16/2023 1:59 PM GROCERY BAGGER EXAMINATION: CT UROGRAPHY WITH AND WITHOUT CONTRAST [...] it. Electronically signed by: Eric Irene M.D. us Marquise Lim MD IMG CT PROCEDURES Final Res ult * IR Percutaneous Nephrostomy Left (10/14/2023 1:38 PM GROCERY BAGGER) Anatomical Region Laterality Modality Body Left X-Ray Angiograph y 10/14/2023 3:34 PM GROCERY BAGGER Impressions 10/14/2023 7:38 PM GROCERY BAGGER Successful left percutaneous nephrostomy. Impacted stone in [...] Kendrick Hughes M.D. Narrative 10/14/2023 7:38 PM GROCERY BAGGER EXAMINATION: IR PERCUTANEOUS NEPHROSTOMY LEFT HISTORY/INDICATION: ??73-year-old [...] was obtained. Prior to beginning the procedure, [place] Protocol was performed to confirm the patient's [...] was dilated before placing a 10 Fr Clive catheter. ??The retaining loop was formed and [...] was obtained. Prior to beginning the procedure, [place] Protocol was performed to confirm the patient's [...] was dilated before placing a 10 Fr Clive catheter. The retaining loop was formed and [...] (ABNORMAL) Urinalysis, microscopic only (10/14/2023 1:35 PM GROCERY BAGGER) WBC, ur 0-5 0 - 5 /HPF [facility] RBC, ur >50(A) 0 - 2 /HPF [facility] Epithelial cells, squamous, ur 1-5 0 - 5 /HPF [facility] Bacteria, ur Trace(A) [facility] Mucous, ur Present(A) [facility] Urine 10/14/2023 1:35 PM GROCERY BAGGER 10/14/2023 3:26 PM GROCERY BAGGER Marquise Lim MD LAB URINE ORDERABLES Final Result Performing Organization Address [facility]/ZIP Co de Phone Number [facility] [place] [address] * Urine culture Urine, kidney aspirate Left (10/14/2023 1:35 PM GROCERY BAGGER) Report Final Report: No growth [facility] Urine, kidney aspirate (Left) 10/14/2023 1:35 PM GROCERY BAGGER 10/14/2023 3:52 PM GROCERY BAGGER Narrative [facility] - 10/16/2023 4:49 PM GROCERY BAGGER Testing performed by [facility] ([phone]) Marquise Lim MD LAB MICROBIOLOGY - GENERAL ORDERABLES Final Result Performing Organization Address City/[facility]/ZIP Co de Phone Number [facility] [place] [address] * (ABNORMAL) Urinalysis reflex to microscopic and culture Urine (10/14/2023 1:35 PM GROCERY BAGGER) Color, ur Red(A) Yellow [facility] Clarity, ur Cloudy(A) Clear [facility] Specific gravity, ur 1.015 1.003 - 1.030 [facility] pH, urine 6.0 [facility] Comment: Interpretive Data ? Urine pH is affected by diet, medications, systemic acid-base disturbances, and renal tubular function. ??pH may affect urinary stone formation. ??For example, urine pH below 6.0 may help reduce the tendency for calcium phosphate stones and pH greater than 6.0 may reduce the tendency for uric acid stone formation. Source: [facility] Beryllium Current Interpretive Data was last revised on 2017 Protein, ur ql 1+(A) Negative [facility] Glucose, ur ql Negative Negative [facility] Ketones, ur Negative Negative [facility] Bilirubin, ur 1+(A) Negative [facility] Blood, ur 4+(A) Negative [facility] Urobilinogen, ur 0.2 <2.0 mg/dL [facility] Nitrite, ur Negative Negative [facility] Leukocyte esterase, ur 2+(A) Negative [facility] UA reflex comment Reflex to microscopic UA will be performed. [facility] Urine 10/14/2023 1:35 PM GROCERY BAGGER 10/14/2023 3:26 PM GROCERY BAGGER us Marquise Lim MD LAB MICROBIOLOGY - GENERAL ORDERABLES Final Result [facility] [place] [address] * US Kidney Complete (10/14/2023 7:15 AM GROCERY BAGGER) Anatomical Region Laterality Modality Kidney N/A Ultrasound 10/14/2023 6:15 PM GROCERY BAGGER Impressions 10/14/2023 6:15 PM GROCERY BAGGER 1. ??No hydronephrosis. ??Given patient had obstructive [...] Robert Yeboah M.D. Narrative 10/14/2023 6:15 PM GROCERY BAGGER EXAMINATION: COMPLETE RENAL SONOGRAM HISTORY: ??Obstructive left [...] Res ult * eGFR (10/14/2023 6:30 AM GROCERY BAGGER) eGFR 64 >=60 mL/min/1. 73 m2 [facility] Comment: Interpretive Data Reference Interval Normal [...] last reviewed 2021. Blood 10/14/2023 6:30 AM GROCERY BAGGER 10/14/2023 7:44 AM GROCERY BAGGER Marquise Lim MD LAB BLOOD ORDERABLES Final Result [facility] Department of Laboratories [place], [place] [id number] * (ABNORMAL) Differential, auto (10/14/2023 6:30 AM GROCERY BAGGER) Pathologist [facility] Neutrophil abs 7.4(H) 1.5 - 6.5 K/cumm [facility] Imm gran abs 0.1 0.0 - 0.1 K/cumm [facility] Lymphocyte abs 0.6(L) 0.8 - 3.3 K/cumm [facility] Monocyte abs 1.3(H) 0.2 - 0.8 K/cumm [facility] Eosinophil abs 0.1 0.0 - 0.5 K/cumm [facility] Basophil abs 0.0 0.0 - 0.1 K/cumm [facility] Neutrophil pct 79.0 % [facility] Comment: Interpretive Data Percent cell count reference ranges are not reported, since discordance with absolute values may lead to misinterpretation of CBC data. Current Interpretive Data was last revised on 2018. Imm gran pct 0.6 % [facility] Comment: Interpretive Data Percent cell count reference ranges are not reported, since discordance with absolute values may lead to misinterpretation of CBC data. Current Interpretive Data was last revised on 2018. Lymphocyte pct 6.3 % [facility] Comment: Interpretive Data Percent cell count reference ranges are not reported, since discordance with absolute values may lead to misinterpretation of CBC data. Current Interpretive Data was last revised on 2018. Monocyte pct 13.3 % [facility] Comment: Interpretive Data Percent cell count reference ranges are not reported, since discordance with absolute values may lead to misinterpretation of CBC data. Current Interpretive Data was last revised on 2018. Eosinophil pct 0.5 % [facility] Comment: Interpretive Data Percent cell count reference ranges are not reported, since discordance with absolute values may lead to misinterpretation of CBC data. Current Interpretive Data was last revised on 2018. Basophil pct 0.3 % [facility] Comment: Interpretive Data Percent cell count reference ranges are not reported, since discordance with absolute values may lead to misinterpretation of CBC data. Current Interpretive Data was last revised on 2018. Blood 10/14/2023 6:30 AM GROCERY BAGGER 10/14/2023 7:20 AM GROCERY BAGGER us Marquise Lim MD LAB BLOOD ORDERABLES Final Result [facility] [place] [address] * (ABNORMAL) Comprehensive metabolic panel (10/14/2023 6:30 AM GROCERY BAGGER) Sodium 136 135 - 145 mmol/L [facility] Potassium, pl 3.4 3.3 - 4.9 mmol/L [facility] Chloride 101 97 - 110 mmol/L [facility] CO2 24 22 - 32 mmol/L [facility] Anion gap 11 2 - 15 mmol/L [facility] BUN 24 6 - 25 mg/dL [facility] Creatinine 1.20 0.80 - 1.30 mg/dL [facility] Glucose 153 70 - 199 mg/dL [facility] Comment: Interpretive Data Fasting glucose >/= [...] 2022. Calcium 8.5 8.5 - 10.3 mg/dL [facility] Bilirubin, total 0.5 0.1 - 1.2 mg/dL [facility] Protein, pl 5.8(L) 6.5 - 8.5 g/dL [facility] Albumin 2.7(L) 3.5 - 5.0 g/dL [facility] Alk phos 108 40 - 130 Units/L [facility] ALT 67(H) 7 - 55 Units/L [facility] AST 49 10 - 50 Units/L [facility] Blood 10/14/2023 6:30 AM GROCERY BAGGER 10/14/2023 7:20 AM GROCERY BAGGER us Marquise Lim MD LAB BLOOD ORDERABLES Final Result [facility] [place] [address] * (ABNORMAL) CBC with auto differential (10/14/2023 6:30 AM GROCERY BAGGER) [facility] WBC 9.4 3.8 - 9.9 K/cumm [facility] Hgb 11.4(L) 13.0 - 17.5 g/dL [facility] Comment: Interpretive Data A reference range for this assay has not been established for patients with an unknown legal sex. Please refer to the laboratory test catalog for established sex-specific reference intervals. Current interpretive data was last revised on 2023. Hct 32.2(L) 38.9 - 50.3 % [facility] Comment: Interpretive Data A reference range for this assay has not been established for patients with an unknown legal sex. Please refer to the laboratory test catalog for established sex-specific reference intervals. Current interpretive data was last revised on 2023. Plt 134(L) 150 - 400 K/cumm [facility] MPV 12.0 9.1 - 12.3 fL [facility] RBC 3.53(L) 4.30 - 5.80 M/cumm [facility] Comment: Interpretive Data A reference range for this assay has not been established for patients with an unknown legal sex. Please refer to the laboratory test catalog for established sex-specific reference intervals. Current interpretive data was last revised on 2023. MCV 91.2 81.3 - 96.4 fL [facility] MCH 32.3 27.1 - 33.3 pg [facility] MCHC 35.4 32.3 - 35.7 g/dL [facility] RDW CV 12.8 11.1 - 14.9 % [facility] RDW SD 42.2 35.7 - 48.1 fL [facility] NRBC abs 0.00 0.00 - 0.01 K/cumm [facility] Blood 10/14/2023 6:30 AM GROCERY BAGGER 10/14/2023 7:20 AM GROCERY BAGGER us Marquise Lim MD LAB BLOOD ORDERABLES Final Result [facility] [place] [address] * Blood culture Blood (10/13/2023 10:59 PM GROCERY BAGGER) Report Final Report: No growth [facility] Blood 10/13/2023 10:5 9 PM GROCERY BAGGER 10/14/2023 12:27 AM GROCERY BAGGER Narrative [facility] - 10/18/2023 7:00 AM GROCERY BAGGER Collection->Peripheral 1. ?Blood cultures are incubated for [...] organism identification may be performed using the [employer] Gram-Positive Blood Culture Assay. This assay detects microbial DNA in positive blood culture broth via hybridization of target DNA to capture oligonucleotides on a microarray. This assay has been cleared by the [place] Food and Drug Administration and its performance characteristics have been verified by the [facility]. 5. ?For questions about this culture, contact the Microbiology Laboratory at [phone]. Interpretive data was last revised on 2020. Marquise Lim MD LAB MICROBIOLOGY - GENERAL ORDERABLES Final Result [facility] [place] [address] * Blood culture Blood (10/13/2023 11:01 AM GROCERY BAGGER) Report Final Report: No growth [facility] Blood 10/13/2023 11:0 1 AM GROCERY BAGGER 10/13/2023 12:16 PM GROCERY BAGGER Narrative [facility] - 10/18/2023 8:10 AM GROCERY BAGGER 1. ?Blood cultures are incubated for 4 [...] organism identification may be performed using the [employer] Gram-Positive Blood Culture Assay. This assay detects microbial DNA in positive blood culture broth via hybridization of target DNA to capture oligonucleotides on a microarray. This assay has been cleared by the [place] Food and Drug Administration and its performance characteristics have been verified by the [facility]. 5. ?For questions about this culture, contact the Microbiology Laboratory at [phone]. Interpretive data was last revised on 2020. Marquise Lim MD LAB MICROBIOLOGY - GENERAL ORDERABLES Final [facility] [place] [address] * [place] Fluoroscopy < 1 Hour (10/13/2023 9:48 AM GROCERY BAGGER) Anatomical Region Laterality Modality Body N/A X-Ray Angiograph y 10/13/2023 7:06 PM GROCERY BAGGER Impressions 10/14/2023 1:30 PM GROCERY BAGGER Unsuccessful attempt at left nephrostomy placement in this patient with a nondilated system. Dictated by: Ana Alfaro M.D. The radiology attending physician has personally reviewed this study, and had reviewed and/or edited this written report and agrees with it. Electronically signed by: Rg Mar M.D. Narrative 10/14/2023 1:30 PM GROCERY BAGGER EXAMINATION: FL FLUOROSCOPY < 1 HOUR HISTORY/INDICATION: [...] was obtained. Prior to beginning the procedure, [place] Protocol was performed to confirm the patient's [...] was obtained. Prior to beginning the procedure, [place] Protocol was performed to confirm the patient's [...] by: Rg Mar M.D. Severo Merlos MD IMG FLUOROSCOPY PROCEDURES F inal Result * eGFR (10/13/2023 6:50 AM GROCERY BAGGER) eGFR >90 >=60 mL/min/1. 73 m2 [facility] Comment: Interpretive Data Reference Interval Normal [...] last reviewed 2021. Blood 10/13/2023 6:50 AM GROCERY BAGGER 10/13/2023 7:55 AM GROCERY BAGGER us Severo Merlos MD LAB BLOOD ORDERABLES Final R esult [facility] [place] [address] * (ABNORMAL) Differential, auto (10/13/2023 6:50 AM GROCERY BAGGER) Neutrophil abs 5.8 1.5 - 6.5 K/cumm [facility] Imm gran abs 0.0 0.0 - 0.1 K/cumm [facility] Lymphocyte abs 0.2(L) 0.8 - 3.3 K/cumm [facility] Monocyte abs 0.2 0.2 - 0.8 K/cumm [facility] Eosinophil abs 0.0 0.0 - 0.5 K/cumm [facility] Basophil abs 0.0 0.0 - 0.1 K/cumm [facility] Neutrophil pct 92.8 % [facility] Comment: Interpretive Data Percent cell count reference ranges are not reported, since discordance with absolute values may lead to misinterpretation of CBC data. Current Interpretive Data was last revised on 2018. Imm gran pct 0.5 % [facility] Comment: Interpretive Data Percent cell count reference ranges are not reported, since discordance with absolute values may lead to misinterpretation of CBC data. Current Interpretive Data was last revised on 2018. Lymphocyte pct 2.7 % [facility] Comment: Interpretive Data Percent cell count reference ranges are not reported, since discordance with absolute values may lead to misinterpretation of CBC data. Current Interpretive Data was last revised on 2018. Monocyte pct 3.5 % [facility] Comment: Interpretive Data Percent cell count reference ranges are not reported, since discordance with absolute values may lead to misinterpretation of CBC data. Current Interpretive Data was last revised on 2018. Eosinophil pct 0.2 % [facility] Comment: Interpretive Data Percent cell count reference ranges are not reported, since discordance with absolute values may lead to misinterpretation of CBC data. Current Interpretive Data was last revised on 2018. Basophil pct 0.3 % [facility] Comment: Interpretive Data Percent cell count reference ranges are not reported, since discordance with absolute values may lead to misinterpretation of CBC data. Current Interpretive Data was last revised on 2018. Blood 10/13/2023 6:50 AM GROCERY BAGGER 10/13/2023 7:55 AM GROCERY BAGGER us Severo Merlos MD LAB BLOOD ORDERABLES Final R esult [facility] [place] [address] * (ABNORMAL) CBC with auto differential (10/13/2023 6:50 AM GROCERY BAGGER) [facility] WBC 6.2 3.8 - 9.9 K/cumm [facility] Hgb 13.3 13.0 - 17.5 g/dL [facility] Comment: Interpretive Data A reference range for this assay has not been established for patients with an unknown legal sex. Please refer to the laboratory test catalog for established sex-specific reference intervals. Current interpretive data was last revised on 2023. Hct 37.0(L) 38.9 - 50.3 % [facility] Comment: Interpretive Data A reference range for this assay has not been established for patients with an unknown legal sex. Please refer to the laboratory test catalog for established sex-specific reference intervals. Current interpretive data was last revised on 2023. Plt 143(L) 150 - 400 K/cumm [facility] MPV 11.6 9.1 - 12.3 fL [facility] RBC 4.11(L) 4.30 - 5.80 M/cumm [facility] Comment: Interpretive Data A reference range for this assay has not been established for patients with an unknown legal sex. Please refer to the laboratory test catalog for established sex-specific reference intervals. Current interpretive data was last revised on 2023. MCV 90.0 81.3 - 96.4 fL [facility] MCH 32.4 27.1 - 33.3 pg [facility] MCHC 35.9(H) 32.3 - 35.7 g/dL [facility] RDW CV 12.8 11.1 - 14.9 % [facility] RDW SD 41.8 35.7 - 48.1 fL [facility] NRBC abs 0.00 0.00 - 0.01 K/cumm [facility] Blood 10/13/2023 6:50 AM GROCERY BAGGER 10/13/2023 7:55 AM GROCERY BAGGER us Severo Merlos MD LAB BLOOD ORDERABLES Final R esult [facility] [place] [address] * (ABNORMAL) Comprehensive metabolic panel (10/13/2023 6:50 AM GROCERY BAGGER) Sodium 137 135 - 145 mmol/L [facility] Potassium, pl 3.7 3.3 - 4.9 mmol/L [facility] Chloride 101 97 - 110 mmol/L [facility] CO2 26 22 - 32 mmol/L [facility] Anion gap 10 2 - 15 mmol/L [facility] BUN 17 6 - 25 mg/dL [facility] Creatinine 0.82 0.80 - 1.30 mg/dL [facility] Glucose 160 70 - 199 mg/dL [facility] Comment: Interpretive Data Fasting glucose >/= [...] 2022. Calcium 9.1 8.5 - 10.3 mg/dL [facility] Bilirubin, total 0.7 0.1 - 1.2 mg/dL [facility] Protein, pl 6.8 6.5 - 8.5 g/dL [facility] Albumin 3.6 3.5 - 5.0 g/dL [facility] Alk phos 113 40 - 130 Units/L [facility] ALT 68(H) 7 - 55 Units/L [facility] Comment:Reviewed AST 50 10 - 50 Units/L [facility] Blood 10/13/2023 6:50 AM GROCERY BAGGER 10/13/2023 7:55 AM GROCERY BAGGER Severo Merlos MD LAB BLOOD ORDERABLES Final R esult Performing Organization Address City/[facility]/ZIP Co de Phone Number [facility] [place] [address] * [place] Fluoroscopy < 1 Hour (10/13/2023 3:00 AM GROCERY BAGGER) Narrative [facility] - 10/13/2023 10:04 AM GROCERY BAGGER The images from this study are not interpreted by Radiology. ??Please refer to the physician's procedure / OR operative note. Severo Merlos MD IMG FLUOROSCOPY PROCEDURES F inal Result [id number] * MRI Spine Total Complete W WO Contrast (10/12/2023 11:44 PM GROCERY BAGGER) Anatomical Region Laterality Modality Spine N/A Magnetic Resonan ce 10/13/2023 12:4 6 AM GROCERY BAGGER Impressions 10/13/2023 11:39 AM GROCERY BAGGER 1. ??Redemonstrated degenerative disc disease of the [...] Kym Buckley M.D. Narrative 10/13/2023 11:39 AM GROCERY BAGGER EXAMINATION: 1. Magnetic resonance imaging (MRI) of [...] * Blood culture Blood (10/12/2023 9:38 PM GROCERY BAGGER) Report Final Report: No growth [facility] Blood 10/12/2023 9:38 PM GROCERY BAGGER 10/12/2023 9:59 PM GROCERY BAGGER N[facility]ative [facility] - 10/17/2023 7:00 AM GROCERY BAGGER Second site Collection->Peripheral 1. ?Blood cultures are [...] organism identification may be performed using the [employer] Gram-Positive Blood Culture Assay. This assay detects microbial DNA in positive blood culture broth via hybridization of target DNA to capture oligonucleotides on a microarray. This assay has been cleared by the [place] Food and Drug Administration and its performance characteristics have been verified by the [facility]. 5. ?For questions about this culture, contact the Microbiology Laboratory at [phone]. Interpretive data was last revised on 2020. us Amol Hargrove MD LAB MICROBIOLOGY - HythiamMD ORDERABLES Final Result [facility]AG[facility] [place] [address] * CT Chest Abdomen Pelvis W Contrast (10/12/2023 9:00 PM GROCERY BAGGER) Anatomical Region Laterality Modality Body N/A Computed Tomogra phy 10/12/2023 9:35 PM GROCERY BAGGER Impressions 10/13/2023 10:26 AM GROCERY BAGGER 1. ??Obstructing renal calculus in unchanged position [...] Mich Cabrera M.D. Narrative 10/13/2023 10:26 AM GROCERY BAGGER EXAMINATION: CT CHEST ABDOMEN PELVIS W CONTRAST [...] (ABNORMAL) Erythrocyte sedimentation rate (10/12/2023 7:50 PM GROCERY BAGGER) Erythrocyte sedimentation rate 48(H) 1 - 20 mm/hr [facility] Blood 10/12/2023 7:50 PM GROCERY BAGGER 10/12/2023 8:11 PM GROCERY BAGGER Rafael Cowan MD LAB BLOOD ORDERABLES Fin al Result [facility] [place] [address] * (ABNORMAL) CRP (acute phase) (10/12/2023 7:50 PM GROCERY BAGGER) CRP 210.7(H) <=10.0 mg/L [facility] Blood 10/12/2023 7:50 PM GROCERY BAGGER 10/12/2023 8:11 PM GROCERY BAGGER Rafael Cowan MD LAB BLOOD ORDERABLES Fin al Result Performing Organization Address City/[facility] Co de Phone Number [facility] [place] [address] * eGFR (10/12/2023 7:50 PM GROCERY BAGGER) eGFR 81 >=60 mL/min/1. 73 m2 [facility] Comment: Interpretive Data Reference Interval Normal [...] last reviewed 2021. Blood 10/12/2023 7:50 PM GROCERY BAGGER 10/12/2023 8:23 PM GROCERY BAGGER Rafael Cowan MD LAB BLOOD ORDERABLES Fin al Result Performing Organization Address City/[facility] Co de Phone Number [facility] [place] [address] * (ABNORMAL) Urine culture Urine (10/12/2023 7:50 PM GROCERY BAGGER) Report Final Report: Greater than or equal to 100,000 colonies/mL of Escherichia coli Greater than or equal to 100,000 colonies/mL of Escherichia coli #2 For susceptibility results, refer to accession number [id number] on the urine culture from 10/11/23 (.) [facility] Organism ESCHERICHIA COLI [facility] Organism ESCHERICHIA COLI [facility] Urine 10/12/2023 7:50 PM GROCERY BAGGER 10/12/2023 9:46 PM GROCERY BAGGER Narrative [facility] - 10/14/2023 9:24 AM GROCERY BAGGER Urine culture reflexed based upon urinalysis results. Testing performed by [facility] ([phone]) Rafael Cowan MD LAB MICROBIOLOGY - GENER AL ORDERABLES Final Result Performing Organization Address City/[facility] [place] [address] * (ABNORMAL) Urinalysis, microscopic only (10/12/2023 7:50 PM GROCERY BAGGER) WBC, ur >50(A) 0 - 5 /HPF [facility] RBC, ur 6-10(A) 0 - 2 /HPF [facility] Bacteria, ur 3+(A) [facility] Culture Reflex Comment Reflex to urine culture will be performed. [facility] Urine 10/12/2023 7:50 PM GROCERY BAGGER 10/12/2023 8:11 PM GROCERY BAGGER Rafael Cowan MD LAB URINE ORDERABLES Fin al Result Performing Organization Address City/[facility]/ZIP Co de Phone Number [facility] [place] [address] * (ABNORMAL) Differential, auto (10/12/2023 7:50 PM GROCERY BAGGER) Neutrophil abs 6.4 1.5 - 6.5 K/cumm [facility] Imm gran abs 0.0 0.0 - 0.1 K/cumm [facility] Lymphocyte abs 0.7(L) 0.8 - 3.3 K/cumm [facility] Monocyte abs 0.9(H) 0.2 - 0.8 K/cumm [facility] Eosinophil abs 0.0 0.0 - 0.5 K/cumm [facility] Basophil abs 0.0 0.0 - 0.1 K/cumm [facility] Neutrophil pct 79.1 % [facility] Comment: Interpretive Data Percent cell count reference ranges are not reported, since discordance with absolute values may lead to misinterpretation of CBC data. Current Interpretive Data was last revised on 2018. Imm gran pct 0.5 % [facility] Comment: Interpretive Data Percent cell count reference ranges are not reported, since discordance with absolute values may lead to misinterpretation of CBC data. Current Interpretive Data was last revised on 2018. Lymphocyte pct 8.4 % [facility] Comment: Interpretive Data Percent cell count reference ranges are not reported, since discordance with absolute values may lead to misinterpretation of CBC data. Current Interpretive Data was last revised on 2018. Monocyte pct 11.4 % [facility] Comment: Interpretive Data Percent cell count reference ranges are not reported, since discordance with absolute values may lead to misinterpretation of CBC data. Current Interpretive Data was last revised on 2018. Eosinophil pct 0.4 % [facility] Comment: Interpretive Data Percent cell count reference ranges are not reported, since discordance with absolute values may lead to misinterpretation of CBC data. Current Interpretive Data was last revised on 2018. Basophil pct 0.2 % [facility] Comment: Interpretive Data Percent cell count reference ranges are not reported, since discordance with absolute values may lead to misinterpretation of CBC data. Current Interpretive Data was last revised on 2018. Blood 10/12/2023 7:50 PM GROCERY BAGGER 10/12/2023 8:11 PM GROCERY BAGGER us Rafael Cowan MD LAB BLOOD ORDERABLES Fin al Result Performing Organization Address [facility] Co de Phone Number LAURA ZARAGOZA [facility] [place] [address] * Blood culture Blood (10/12/2023 7:50 PM GROCERY BAGGER) Report Final Report: No growth [facility] Blood 10/12/2023 7:50 PM GROCERY BAGGER 10/12/2023 8:32 PM GROCERY BAGGER Narrative [facility] - 10/17/2023 7:00 AM GROCERY BAGGER Collection->Peripheral 1. ?Blood cultures are incubated for [...] organism identification may be performed using the [employer] Gram-Positive Blood Culture Assay. This assay detects microbial DNA in positive blood culture broth via hybridization of target DNA to capture oligonucleotides on a microarray. This assay has been cleared by the [place] Food and Drug Administration and its performance characteristics have been verified by the [facility]. 5. ?For questions about this culture, contact the Microbiology Laboratory at [phone]. Interpretive data was last revised on 2020. us Amol Hargrove MD LAB MICROBIOLOGY - GE NERAL ORDERABLES Final Result Performing Organization Address [facility] Co de Phone Number LAURA ZARAGOZA [facility] [place] [address] * Lactate (10/12/2023 7:50 PM GROCERY BAGGER) Lactate 1.1 0.7 - 2.0 mmol/L [facility] Blood 10/12/2023 7:50 PM GROCERY BAGGER 10/12/2023 8:23 PM GROCERY BAGGER Amol Hargrove MD LAB BLOOD ORDERABLES Final Result [facility] [place] [address] * (ABNORMAL) Urinalysis reflex to microscopic and culture Urine (10/12/2023 7:50 PM GROCERY BAGGER) Color, ur Camilo Yellow [facility] Clarity, ur Turbid(A) Clear [facility] Specific gravity, ur 1.025 1.003 - 1.030 [facility] pH, urine 6.0 [facility] Comment: Interpretive Data ? Urine pH is affected by diet, medications, systemic acid-base disturbances, and renal tubular function. ??pH may affect urinary stone formation. ??For example, urine pH below 6.0 may help reduce the tendency for calcium phosphate stones and pH greater than 6.0 may reduce the tendency for uric acid stone formation. Source: [facility] Current Interpretive Data was last revised on 2017 Protein, ur ql 3+(A) Negative [facility] Glucose, ur ql Negative Negative [facility] Ketones, ur Negative Negative [facility] Bilirubin, ur Negative Negative [facility] Blood, ur 2+(A) Negative [facility] Urobilinogen, ur >=8.0(A) <2.0 mg/dL [facility] Nitrite, ur Negative Negative [facility] Leukocyte esterase, ur 3+(A) Negative [facility] UA reflex comment Reflex to microscopic UA will be performed. [facility] Urine 10/12/2023 7:50 PM GROCERY BAGGER 10/12/2023 8:11 PM GROCERY BAGGER us Rafael Cowan MD LAB MICROBIOLOGY - GENER AL ORDERABLES Final Result [facility] [address] [facility] [place] [address] * (ABNORMAL) CBC with auto differential (10/12/2023 7:50 PM GROCERY BAGGER) Pathologist [facility] WBC 8.1 3.8 - 9.9 K/cumm [facility] Hgb 13.7 13.0 - 17.5 g/dL [facility] Comment: Interpretive Data A reference range for this assay has not been established for patients with an unknown legal sex. Please refer to the laboratory test catalog for established sex-specific reference intervals. Current interpretive data was last revised on 2023. Hct 38.5(L) 38.9 - 50.3 % [facility] Comment: Interpretive Data A reference range for this assay has not been established for patients with an unknown legal sex. Please refer to the laboratory test catalog for established sex-specific reference intervals. Current interpretive data was last revised on 2023. Plt 155 150 - 400 K/cumm [facility] MPV 11.3 9.1 - 12.3 fL [facility] RBC 4.15(L) 4.30 - 5.80 M/cumm [facility] Comment: Interpretive Data A reference range for this assay has not been established for patients with an unknown legal sex. Please refer to the laboratory test catalog for established sex-specific reference intervals. Current interpretive data was last revised on 2023. MCV 92.8 81.3 - 96.4 fL [facility] MCH 33.0 27.1 - 33.3 pg [facility] MCHC 35.6 32.3 - 35.7 g/dL [facility] RDW CV 12.7 11.1 - 14.9 % [facility] RDW SD 43.3 35.7 - 48.1 fL [facility] NRBC abs 0.00 0.00 - 0.01 K/cumm [facility] Blood 10/12/2023 7:50 PM GROCERY BAGGER 10/12/2023 8:11 PM GROCERY BAGGER Rafael Cowan MD LAB BLOOD ORDERABLES Fin al Result Performing Organization Address City/[facility]/ZIP Co de Phone Number [facility] [place] [address] * (ABNORMAL) Basic metabolic panel (10/12/2023 7:50 PM GROCERY BAGGER) [facility] Sodium 133(L) 135 - 145 mmol/L [facility] Potassium, pl 3.8 3.3 - 4.9 mmol/L [facility] Chloride 97 97 - 110 mmol/L [facility] CO2 27 22 - 32 mmol/L [facility] Anion gap 9 2 - 15 mmol/L [facility] BUN 22 6 - 25 mg/dL [facility] Creatinine 0.99 0.80 - 1.30 mg/dL [facility] Glucose 166 70 - 199 mg/dL [facility] Comment: Interpretive Data Fasting glucose >/= [...] 2022. Calcium 9.1 8.5 - 10.3 mg/dL [facility] Blood 10/12/2023 7:50 PM GROCERY BAGGER 10/12/2023 8:11 PM GROCERY BAGGER Rafael Cowan MD LAB BLOOD ORDERABLES Fin al Result Performing Organization Address [facility] Co de Phone Number [facility] [place] [address] documented in this encounter Visit Diagnoses Diagnosis [...] Other specified disorder of kidney and ureter Lumbar radiculopathy Thoracic or lumbosacral neuritis or radiculitis, unspecified documented in this encounter Admitting Diagnoses Diagnosis Hydronephrosis with urinary obstruction due to renal calculus Ureteral colic Renal colic S/P spinal fusion Arthrodesis status Cardiac arrest (HCC) Cardiac arrest documented in this encounter Administered Medications Inactive Administered Medications - up to 3 most recent administrations Medication Order MAR Action Action Date Dose Rate Site cyclobenzaprine (FLEXERIL) tablet 5 mg 5 mg, oral, 3 times daily PRN, muscle spasms, Starting on Helene 10/25/23 at 0806 Given 10/29/2023 4:49 AM GROCERY BAGGER 5 mg Given 10/27/2023 9:14 AM GROCERY BAGGER 5 mg Given 10/25/2023 2:34 PM GROCERY BAGGER 5 mg dilTIAZem XR (CARDIZEM CD,DILACOR XR) 24 hour capsule 240 mg 240 mg, oral, Daily, First dose on Sun10/30/23 at 0900, Do not crush, chew, cut, dissolve, open or otherwise manipulate tablet/capsule. Given 10/30/2023 9:56 AM GROCERY BAGGER 240 mg diphenhydrAMINE (BENADRYL) tab/cap 25 mg 25 mg, oral, 4 times daily PRN, itching, Starting on 10/28/23 at 0113 Given 10/28/2023 9:20 AM GROCERY BAGGER 25 mg Given 10/28/2023 1:19 AM GROCERY BAGGER 25 mg diphenhydrAMINE-zinc acetate 2-0.1 % cream topical, Daily PRN, itching, Starting on Sun10/27/23 at 0913, Apply to affected area: IV access site, Indications: Pruritus of SkinIndications:Pruritus of Skin Given 10/27/2023 9:15 PM GROCERY BAGGER Given 10/27/2023 1:11 PM GROCERY BAGGER enoxaparin (LOVENOX) syringe 80 mg 80 mg (rounded from 88.6 mg = 1 mg/kg ? 88.6 kg), subcutaneous, Every 12 hours scheduled, First dose (after last modification) on Sun10/26/23 at 1815, Indications: Pulmonary EmbolismIndications:Pulmonary Embolism Given 10/30/2023 9:56 AM GROCERY BAGGER 80 mg Right Upper Abdomen Given 10/29/2023 9:34 PM GROCERY BAGGER 80 mg Ri ght Upper Abdomen Given 10/29/2023 9:31 AM GROCERY BAGGER 80 mg Le ft Upper Abdomen gabapentin (NEURONTIN) capsule 300 mg 300 mg, oral, Every 8 hours scheduled, First dose on Sun10/23/23 at 2345, Indications: PainIndications:Pain Given 10/30/2023 3:39 PM GROCERY BAGGER 300 mg Given 10/30/2023 5:19 AM GROCERY BAGGER 300 mg Given 10/29/2023 9:34 PM GROCERY BAGGER 300 mg HYDROmorphone (DILAUDID) injection 0.5 mg 0.5 mg, intravenous, Administer over 2 Minutes, Every 2 hours PRN, 2nd line for pain, Starting on Sun10/24/23 at 2245, Indications: PainIndications:Pain Given 10/26/2023 6:35 PM GROCERY BAGGER 0.5 mg Given 10/25/2023 11:36 AM GROCERY BAGGER 0.5 mg Given 10/25/2023 8:41 AM GROCERY BAGGER 0.5 mg irbesartan (AVAPRO) tablet 300 mg 300 mg, oral, Daily, First dose on Sun10/30/23 at 0900 Given 10/30/2023 9:56 AM GROCERY BAGGER 300 mg levETIRAcetam (KEPPRA) tablet 1,000 mg 1,000 mg, oral, 2 times daily, First dose on Sun10/24/23 at 2100, May mix with 120 mL of enteral nutrition formula or disperse crushed tablets (500 mg tablet strength studied) in 10 mL of water, shake for 5 minutes to dissolve, and administer immediately via enteral feeding tube Given 10/30/2023 9:56 AM GROCERY BAGGER 1,000 mg Given 10/29/2023 9:34 PM GROCERY BAGGER 1,000 mg Given 10/29/2023 9:31 AM GROCERY BAGGER 1,000 mg lidocaine (LIDODERM) 5 % patch 2 patch 2 patch, transdermal, Administer over 12 Hours, Daily, First dose on Sun10/24/23 at 1130, Do not cover the holes on the top side of the patch., Apply to affected area: chest Medication Applied 10/28/2023 1:26 PM GROCERY BAGGER 2 patches Other (Comment) Medication Applied 10/27/2023 1:11 PM GROCERY BAGGER 2 patches Back Medication Applied 10/25/2023 11:36 AM GROCERY BAGGER 2 patches Back ondansetron (ZOFRAN) injection 4 mg 4 mg, intravenous, Administer over 2 Minutes, Every 6 hours PRN, nausea, vomiting, Starting on Sun10/23/23 at 2248, Indications: nausea and vomitingIndications:nausea and vomiting oxyCODONE (ROXICODONE) tablet 5 mg [...] Gastric Disorder,home med Given 10/30/2023 9:56 AM GROCERY BAGGER 40 mg Given 10/29/2023 9:31 AM GROCERY BAGGER 40 mg Given 10/28/2023 9:17 AM GROCERY BAGGER 40 mg polyethylene glycol (MIRALAX) packet 17 g 17 g, oral, 2 times daily, First dose (after last modification) on Sun10/26/23 at 2100, Indications: constipationIndications:constipation Given 10/28/2023 9:16 AM GROCERY BAGGER 17 g Given 10/27/2023 9:13 AM GROCERY BAGGER 17 g ramelteon (ROZEREM) tablet 8 mg 8 mg, oral, Nightly PRN, sleep, Starting on Sun10/28/23 at 2033, Indications: Sleep-Onset InsomniaIndications:Sleep-Onset Insomnia Given 10/29/2023 10:55 PM GROCERY BAGGER 8 mg Given 10/28/2023 9:31 PM GROCERY BAGGER 8 mg senna-docusate (PERICOLACE) 8.6-50 mg per tablet 2 tablet 2 tablet, oral, 2 times daily, First dose on Sun10/23/23 at 2345, Hold for diarrhea., Indications: constipationIndications:constipation Given 10/28/2023 9:16 AM GROCERY BAGGER 2 table ts Given 10/27/2023 9:14 AM GROCERY BAGGER 2 tablets Given 10/26/2023 9:35 AM GROCERY BAGGER 2 tablets sodium chloride 0.9% flush 0.5-20 mL 0.5-20 mL, intra-catheter, Every 8 hours scheduled, First dose on Sun10/23/23 at 2345, Flush volume based on line type and size. , Indications: FlushingIndications:Flushing Given 10/30/2023 5:20 AM GROCERY BAGGER 10 mL Given 10/29/2023 9:35 PM GROCERY BAGGER 10 mL Given 10/29/2023 2:00 PM GROCERY BAGGER 10 mL sodium chloride 0.9% flush 0.5-20 mL 0.5-20 mL, intra-catheter, Every 8 hours scheduled, First dose on Sun10/23/23 at 2330, Flush volume based on line type and size. Given 10/30/2023 5:20 AM GROCERY BAGGER 10 mL Given 10/29/2023 9:35 PM GROCERY BAGGER 10 mL Given 10/29/2023 2:01 PM GROCERY BAGGER 10 mL sodium chloride 0.9% irrigation As needed, Starting on Sun10/23/23 at 1646, Intra-Op Given 10/23/2023 4:46 PM GROCERY BAGGER 1,000 mL Surgical Site tamsulosin (FLOMAX) extended release capsule 0.8 mg 0.8 mg, oral, Daily with dinner, First dose on Sun10/24/23 at 1800, Do not crush, chew, cut, dissolve, open or otherwise manipulate tablet/capsule. Given 10/29/2023 6:50 PM GROCERY BAGGER 0.8 mg Given 10/28/2023 6:11 PM GROCERY BAGGER 0.8 mg Given 10/27/2023 4:49 PM GROCERY BAGGER 0.8 mg vancomycin (VANCOCIN) solution As needed, Starting on Sun10/23/23 at 1646, Intra-Op Given 10/23/2023 4:46 PM GROCERY BAGGER 1,000 mg Surgical Site documented in this encounter Discontinued [...] Recently Administered Medications Times are shown in GROCERY BAGGER. Scheduled Medication Order 10/28/2023 10/29/2023 10/30/2023 acetaminophen (TYLENOL) tablet 1,000 mg (COMPLETED) 1,000 mg, oral, Every 6 hours scheduled, First dose on Sun10/24/23 at 1200, For 18 doses 0019 (Given - Provider: Ritu Marin RN)0618 (Given - Provider: Ritu Marin, NARENDRA)1156 (Given - Provider: Porsha Lepe RN)1811 (Given [...] Ritu Marin RN)1326 (Given - Provider: Porsha Lepe RN)2132 (Given - Provider: Suzanne Mendoza, NARENDRA) 0601 [...] feeding tube 0916 (Given - Provider: Porsha Lepe, RN)2131 (Given - Provider: Suzanne Mendoza, RN) 930 (Given - Provider: Matilda Gonzales RN)2133 (Given - Provider: Suzanne Mendoza RN) 955 (Given - Provider: Matilda Gonzales RN) lidocaine [...] Treatment of Non-Bleeding Gastric Disorder, home med 0917 (Given - Provider: Porsha Lepe, NARENDRA) 930 (Given - Provider: Matilda Gonzales RN) 09 (Given - Provider: Matilda Gonzales RN) polyethylene glycol (MIRALAX) packet 17 g 17 g, oral, 2 times daily, First dose (after last modification) on Sun10/26/23 at 2100, Indications: constipation 0916 (Given - Provider: Porsha Lepe RN)2133 (Not Given - Provider: Suzanne Mendoza RN - Reason: Patient/family refused - Comment: soft stools) 30 (Not Given - Provider: Matilda Gonzales RN - Reason: Contraindicated - Comment: bm 10/29)2133 (Not Given - Provider: Suzanne Mendoza [...] Marin RN)1334 (Given - Provider: Porsha Lepe RN)213 (Given - Provider: Suzanne Mendoza RN) 0602 (Given - Provider: Suzanne Mendoza RN)1400 (Given - Provider: Matilda Gonzales RN)2135 (Given - Provider: Suzanne Mendoza RN) 0520 (Given - Provider: Suzanne Mendoza RN)1400 (Due) sodium chloride 0.9% flush 0.5-20 mL 0.5-20 mL, intra-catheter, Every 8 hours scheduled, First dose on Sun10/23/23 at 2330, Flush volume based on line type and size. 0618 (Given - Provider: Ritu Marin RN)1333 (Given - Provider: Porsha Lepe RN)2134 (Given - Provider: Suzanne Mendoza RN) 0602 (Given - Provider: Suzanne Mendoza RN)1401 (Given - Provider: Matilda Gonzales, NARENDRA)2135 (Given [...] Mendoza RN)1355 (Return to Cabinet - Provider: Matilda Gonzales, NARENDRA) diphenhydrAMINE (BENADRYL) tab/cap 25 mg 25 mg, oral, 4 times daily PRN, itching, Starting on 10/28/23 at 0113 0119 (Given - Provider: Ritu Marin RN)0920 (Given - Provider: Porsha Lepe, NRAENDRA) diphenhydrAMINE-zinc acetate 2-0.1 % cream topical, Daily PRN, itching, Starting on 10/27/23 at 0913, Apply to affected area: IV access site, Indications: Pruritus of Skin hydrocortisone 2.5 % cream topical, 2 times daily PRN, irritation, rash, Do not apply on/near surgical incision, Starting on Sun10/28/23 at 1549, For 48 hours, Apply to [...] Count Last Ordered Date First Ordered Date dilTIAZem XR (CARDIZEM CD,DI LACOR XR) 24 hour capsule 240 mg 2 10/30/2023 10/15/2023 irbesartan (AVAPRO) tablet 300 mg 1 023 oxyCODONE (ROXICODONE) tablet 5 mg 5 202210/13/2023 ceFAZolin (ANCEF) 1,500 mg i n sodium chloride 0.9% 100 mL IVPB 1 10/28/2023 ceFAZolin (ANCEF) 100 mg/mL sterile water 2,000 mg 1 10/28/2023 diphenhydrAMINE (BENADRYL) tab/cap 25 mg 2 10/28/2023 10/27/2023 hydrocortisone 2.5 % cream 1 10/28/2023 ramelteon (ROZEREM) tablet 8 mg 2 3 10/13/2023 vancomycin 1500 mg/515 mL in sodium chloride 0.9% (premix) 1,500 mg 4 10/28/2023 10/23/20 diphenhydrAMINE-zinc acetate 2-0.1 % cream 1 10/27/2023 enoxaparin (LOVENOX) syringe 80 mg 2 2022 lactulose 0.67 gram/mL oral solution 20 g 1 10/26/2023 polyethylene glycol (MIRALAX) packet 17 g 4 10/26/2023 10/15/2023 sodium chloride 0.9% IVPB 0-250 mL 2 2022 cyclobenzaprine (FLEXERIL) tablet 5 mg 2 10/12/2023 gadoterate meglumine injection 18 mL 1 10/06 potassium chloride ER (KLOR- CON) extended release tablet 40 mEq 2 10/25/2023 acetaminophen (TYLENOL) tablet 1,000 mg 7 1 12/25/2022 10/12/2023 calcium gluconate 1 g/50 mL in sodium chloride (premix) solution 1 g 1 10/24/2023 calcium gluconate 2 g/100 mL in sodium chloride (premix) solution 2 g 1 10/24/2023 dextrose (D10W) 10% bolus 250 mL 3 10/24/20 dextrose gel in packet 15 g 3 10/24/2023 glucagon injection 1 mg 3 10/24/2023 heparin in 0.9% sodium chlor adele 25,000 unit/250 mL infusion (premix) 1 10/24/2023 HYDROmorphone (DILAUDID) injection 0.5 mg 1 10/24/2023 insulin lispro (HumaLOG, ADM ELOG) 100 unit/mL injection 0-10 Units 1 10/24/2023 insulin lispro (HumaLOG, ADM ELOG) 100 unit/mL injection 1-3 Units 1 10/24/2023 insulin lispro (HumaLOG, ADM ELOG) 100 unit/mL injection 2-7 Units 1 10/24/2023 levETIRAcetam (KEPPRA) 1,000 mg/100 mL in sodium chloride (premix) 1,000 mg 1 10/24/2023 levETIRAcetam (KEPPRA) tablet 1,000 mg 1 lidocaine (LIDODERM) 5 % patch 2 patch 1 oxyCODONE (ROXICODONE) tablet 10 mg 1 10/[address] (PROTONIX) e xtended release tablet 40 mg 2 10/24/2023 10/13/2023 perflutren protein-a (OPTISO N) 0.22 mg/mL injection - ADS Override Pull 1 10/24/2023 potassium chloride (KLOR-CON ) packet 40 mEq 1 10/24/2023 sodium chloride 0.9% bolus 1,000 mL 2 10/2410/23/2023 sodium chloride 0.9% infusion 6 10/24/2023 10/13/2023 tamsulosin (FLOMAX) extended release capsule 0.8 mg 2 10/24/2023 10/13/2023 baclofen (LIORESAL) tablet 5 mg 1 bisacodyL (DULCOLAX) suppository 10 mg 1 bisacodyl EC (DULCOLAX EC) tablet 10 mg 1 1 12/24/2022 Carrier Fluids for Secondary Infusion - 0.9% Sodium Chloride 5 10/23/2023 10/13/2023 ceFAZolin (ANCEF) 2,000 mg/2 0 mL in sterile water (premix) 2,000 mg 3 10/23/2023 dextrose 5% and Lactated Ringer's infusion 1 10/23/2023 dextrose 5% and sodium chlor adele 0.9% infusion (premix) 1 10/23/2023 enoxaparin (LOVENOX) syringe 40 mg 3 202210/13/2023 EPINEPHrine syringe (ADRENALIN) 0.1 mg/mL 1 10/23/2023 famotidine (PEPCID) 20 mg/50 mL in sodium chloride 0.9% (premix) 20 mg 1 10/23/2023 gabapentin (NEURONTIN) capsule 300 mg 3 haloperidol (HALDOL) injection 1 mg 1 10/23 hydrALAZINE (APRESOLINE) injection 5 mg 1 1 12/24/2022 HYDROmorphone (DILAUDID) injection 0.2 mg 7 10/23/2023 10/13/2023 HYDROmorphone (DILAUDID) injection 0.4 mg 2 10/23/2023 10/18/2023 HYDROmorphone in 0.9% sodium chloride (DILAUDID) 20 mg/100 mL (0.2 mg/mL) (premix) 1 10/23/2023 ioversoL (OPTIRAY 350) syringe 75 mL 1 10/05 labetaloL (NORMODYNE,TRANDAT E) injection 5 mg 1 10/23/2023 Lactated Ringer's (LR) infusion 6 3 10/13/2023 Lactated Ringer's (LR) infus ion - ADS Override Pull 2 10/23/2023 levETIRAcetam (KEPPRA) 4,500 mg in sodium chloride 0.9% 100 mL IVPB 2 10/23/2023 LORazepam (ATIVAN) 2 mg/mL i njection - ADS Override Pull 2 10/23/2023 LORazepam (ATIVAN) injection 0.5 mg 2 10/23 magnesium hydroxide (MILK OF MAGNESIA) 80 mg/mL (33.3 mg/mL as elemental magnesium) oral suspension 30 mL 1 10/23/2023 methadone injection syringe 15 mg 1 023 midazolam (VERSED) 1 mg/mL injection 2 mg 1 10/23/2023 mineral oil (FLEET MINERAL O IL) enema 133 mL 1 10/23/2023 multivit raxyhjpt-lguu-AE-ca lcium (THERA-M) tablet 1 tablet 1 10/23/2023 naloxone (NARCAN) 0.4 mg/mL injection 0.04-0.4 mg 4 10/23/2023 10/13/2023 norepinephrine in dextrose 5 % (LEVOPHED) 8,000 mcg/250 mL (32 mcg/mL) infusion (premix) 2 10/23/2023 ondansetron (ZOFRAN) injection 4 mg 3 10/233 10/13/2023 phenylephrine (ARIELLE-SYNEPHRIN E) 1 mg/10 mL (100 mcg/mL) in sodium chloride 0.9% (premix) 16 mcg 1 10/23/2023 prochlorperazine (COMPAZINE) injection 5 mg 3 10/23/2023 10/18/2023 senna-docusate (PERICOLACE) 8.6-50 mg per tablet 2 tablet 1 10/23/2023 sodium bicarbonate 8.4 % (1 mEq/mL) injection 50 mEq 1 10/23/2023 sodium chloride 0.9% 0.9% in fusion - ADS Override Pull 1 10/23/2023 sodium chloride 0.9% flush 0.5-20 mL 10 10/0510/13/2023 succinylcholine (ANECTINE) 2 0 mg/mL injection - ADS Override Pull 1 10/23/2023 cephalexin (KEFLEX) capsule 500 mg 1 2022 famotidine (PEPCID) injection 20 mg 1 10/18 fentaNYL (SUBLIMAZE) preserv ative free injection 50 mcg 3 10/18/2023 iothalamate meglumine (CONRA Y) 60 % injection 2 10/18/2023 10/13/2023 metoclopramide (REGLAN) 5 mg /mL injection 10 mg 1 10/18/2023 sodium chloride 0.9% irrigation 2 3 10/13/2023 ioversoL (OPTIRAY 350) syringe 125 mL 1 10/2023 fentaNYL (SUBLIMAZE) preserv ative free injection 6 10/14/2023 10/13/2023 hydrOXYzine (ATARAX) tablet 25 mg 1 023 ketorolac (TORADOL) 15 mg/mL injection 15 mg 2 10/14/2023 10/13/2023 lidocaine PF (XYLOCAINE) 10 mg/mL (1 %) preservative free injection 4 10/14/2023 10/13/2023 midazolam (VERSED) 1 mg/mL injection 5 10/0510/13/2023 sodium chloride 0.9% bolus f rom bag 1,000 mL 1 10/14/2023 acetaminophen (TYLENOL) tablet 650 mg 1 07/2023 acyclovir (ZOVIRAX) tablet 400 mg 1 023 amisulpride (BARHEMSYS) injection 10 mg 1 1 12/14/2022 cefTRIAXone (ROCEPHIN) 2,000 mg/20 mL in sterile water (premix) 2,000 mg 2 10/13/2023 10/12/20 diphenhydrAMINE (BENADRYL) 5 0 mg/mL injection 12.5 mg 1 10/13/2023 fentaNYL (SUBLIMAZE) preserv ative free injection 25 mcg 1 10/13/2023 gentamicin (GARAMYCIN) 350 m g in sodium chloride 0.9% 35 mL (10 mg/mL) syringe 1 10/13/2023 gentamicin (GARAMYCIN) 520 m g in sodium chloride 0.9% 52 mL (10 mg/mL) syringe 1 10/13/2023 ioversoL (OPTIRAY 350) injection 1 10/13/20 meperidine (DEMEROL) preserv ative free injection 12.5 mg 1 10/13/2023 ondansetron ODT (ZOFRAN-ODT) disintegrating tablet 4 mg 1 10/13/2023 sodium chloride 0.9% bolus from bag 500 mL 1 10/13/2023 diazePAM (VALIUM) tablet 5 mg 1 10/12/2023 gadoterate meglumine injection 16 mL 1 06/2023 ioversoL (OPTIRAY 350) syringe 100 mL 1 06/2023 Lab Orders Without Results Count Last Ordered D ate First Ordered Date MAGNESIUM 1 10/29/2023 PHOSPHORUS 1 10/29/2023 POCT GLUCOSE DEVICE 9 10/25/2023 10/23/20 23 Diet Count Last Ordered Date First Orde [...] 1 10/23/2023 SKIN PREP 1 10/14/2023 VOID FLOOR TECH TO OR 1 10/14/2023 ASSESS 1 10/13/2023 Consult Count Last Ordered Date First Orde red Date IP CONSULT TO NEUROSURGERY 1 10/28/2023 IP CONSULT TO INTERNAL MEDICINE 1 IP CONSULT TO NEUROLOGY 1 10/23/2023 IP CONSULT TO ORTHO SPINE 1 10/12/2023 IP CONSULT TO UROLOGY 1 10/12/2023 Admission Count Last Ordered Date First Orde red Date ADMIT TO INPATIENT 2 10/23/2023 INITIATE OBSERVATION SERVICES 1 10/23/2023 Transfer Count [...] 10/12/2023 documented in this encounter Care Teams Tire Room Supervisor Relationship Specialty Start Date End Date Rl Medina DO [address] [place] [address] PCP - General 08/09/17 05/25/24 documented as of this encounter
--- OUTSIDE RECORDS SUMMARY | 2024-11-05 19:26 | XMS_ITS | Encounter Summary ---
Author Organization [facility] Healthcare Address [address] [place] [address] Care Team Providers Care Shipping And Receiving Operator Name Role Phone Rl Medina DO Primary Care Provider Reason for Visit * Auth/Cert Specialty Diagnoses / Procedures Referred By Contac t Referred To Contact Diagnoses Ureteral colic Procedures na Referral ID Status Reason Start Date Expiration Date Visits Re quested Visits Authorized [id number] 1 1 Encounter Details Date Type Department Care Team (Late st Contact Info) Description 10/18/2023 9:23 AM SIEVE MAKER Anesthesia Event [facility] Operating Room [address] [place] [address] Alvaro Wilson MD [address] [place] [address] Galina Ladd NP [address] [id number] [place] [address] Anesthesia Record Procedure Summary Procedure Name Responsible Anesthesiologist Anesthesia Start Time Anesthesia Stop Time CYSTOSCOPY (Left: Urethra) Alvaro Wayne MD 10/18/23 0923 10/18/23 1133 Events Date Time Event Comment 10/18/2023 0826 In Preop 0923 An Start 0927 In Room 0927 An Start Data 0930 0933 An Induction The patient was reevaluated immediately before moderate or deep sedation use and before anesthesia induction. 0936 Anesthesia Ready 0936 An LMA 0940 IV Placed 0954 Proc Start 1119 Proc Fin 1120 An Extubation 1126 an stop data 1127 Out of Room 1133 Handoff to RN I completed my handoff [...] the time of handoff: No value filed. 1133 An Stop Meds Name Total propofol 160 mg fentaNYL 100 mcg HYDROmorphone 2 mg/mL 1 mg phenylephrine 100 mcg/mL 300 mcg ondansetron PF (ZOFRAN) 2 mg/mL injectio n 4 mg cefTRIAXone 2,000 mg 2,000 mg Lactated Ringer's (LR) infusion 750 mL * Agents Name O2% N2O O2 N2O Air Sevoflurane Inspired Sevoflurane * Blood No blood administrations on file. Lines, Drains, and Airways Type Details Placement Removal RETIRED Surgical Site 10/13/23; 0255; Pe nis; 10/24/23; 0800 (no wound present); Removal date unknown/not present on admission 10/13/23 0255 by Daniela Kothari RN 10/24/23 0800 by Luis Ruffin, NARENDRA Urethral Catheter Placement Date: 10/13/23; Placement Time: 0303; Inserted by: Dr. Mcneil; Existing LDA Placed by: Other (Comment); Type: Double-lumen; Balloon Size: 10 mL; Urine Returned: Yes; Removal Date: 10/18/23; Removal Time: 0940; Removal Reason: Disontinued in OR 10/13/23 0303 by Daniela Kothari RN 10/18/23 0940 by lGoria Cifuentes, NARENDRA Peripheral IV Placement Date: 10/13/23; Placement Time: 0901; Catheter Size: 20 G; Orientation: Right; Location: Forearm; Site Prep: Chlorhexidine; Inserted by: Miguelito Norman RN; Insertion Attempts: 1; Patient Tolerance: [...] RN 10/30/23 1404 by Matilda Gonzales RN Nephrostomy 10/14/23; 1334; Left ; 10 Fr. 10/14/23 1334 by Carey Norman RN 10/20/23 1949 by Johnnie Flores RN Supraglottic Airway Placement Date: 10/18/23; Placement Time: 0951 (created via procedure documentation); Mask Ventilation: 0; Size: 4; Insertion Attempts: 1; Removal Date: 10/18/23; Removal Time: 1120 10/18/23 0951 by Nolvia Multani MD 10/18/23 1120 by Nolvia Multani MD Peripheral IV Placement Date: 10/18/23; Placement Time: 0951 (created via procedure documentation); Catheter Size: 18 G; Orientation: Right; Location: Hand; Site Prep: Alcohol; Insertion Attempts: 1; Removal Date: 10/29/23; Removal Time: 0659 (unk prev shift); Removal Reason: Other (Comment) (unk) 10/18/23 0951 by Nolvia Multani MD 10/29/23 0659 by Matilda Gonzales RN Urethral Catheter Placement Date: 10/18/23; Placement Time: 111; Inserted by: Vero Tolentino; Type: Non-latex; Balloon Size: 10 mL; Urine Returned: Yes; Removal Date: 10/23/23; Removal Time: 2133; Removal Reason: Disontinued in OR 10/18/23 1115 by Gloria Cifuentes RN 10/23/232133 by Rena Michelle RN RETIRED Surgical Site 10/18/23; 1127; Le ft; Flank; 10/24/23; 0800; Removal date unknown/not present on admission 10/18/23 1127 by Gloria Cifuentes RN 10/24/23 0800 by Luis Ruffin RN documented in this encounter Social History Tobacco Use Types Packs/Day Years Used Date Smoking Tobacco: Former Cigarettes 1 11 0 11/05/1968 - 11/05/1979 Passive Smoke Exposure: Past Smokeless Tobacco: Never Alcohol Use Standard Drinks/Week Comments Yes 14 (1 standard drink = 0.6 oz pu re alcohol) social AUDIT-C Answer Date Recorded Q1: How often do you have a drink containing alcohol? 4 or more times a week 10/11/2023 Q2: How many drinks containi ng alcohol do you have on a typical day when you are drinking? 1 or 2 Q3: How often do you have si x or more drinks on one occasion? 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 Not on file Not on file Not on file documented as of this encounter OR Notes * Anesthesia Postprocedure Evaluation - Alvaro Wayne MD - 10/18/2023 1:13 PM CST Patient: Hira Evans Procedure Summary Date: 10/18/23 Room / Location: [facility] OR POD 1 ROOM [facility] / [facility] OR POD 1 Anesthesia Start: 922 Anesthesia Stop: 1132 Procedures: CYSTOSCOPY (Left: Urethra) PYELOGRAM - RETROGRADE (Left: Perineum) LITHOTRIPSY - LASER (Left: Abdomen) URETEROSCOPY (Left: Perineum) PLACEMENT PREOPERATIVE STENT - URETERAL (Left: Ureter) REMOVAL NEPHROSTOMY TUBE - FLOUROSCPY (Left: Flank) Diagnosis: Hydronephrosis with urinary obstruction due to renal calculus (Hydronephrosis with urinary obstruction due to renal calculus [N13.2]) Surgeons: Gabriel Bennett MD Responsible Provider: Alvaro Wayne MD Anesthesia Type: general ASA Status: 3 Anesthesia Type: general Last vitals BP 150/62 Pulse 75 Temp 36.6 ??C (97.9 ??F) (Oral) Resp 18 SpO2 96% Anesthesia Post Evaluation Patient location during evaluation: PACU Patient participation: complete - patient participated Level of consciousness: fully awake Pain score: 3 Pain management: adequate Airway patency: adequate Evidence of recall: no Cardiovascular status: hemodynamically stable and blood pressure returned to baseline Respiratory status: acceptable and room air Hydration status: acceptable Pt is: normothermic Nausea/Vomiting status: none Comments: Stable and comfortable. Can go to the floor. BP 150/62 Pulse 75 Temp 36.6 ??C (97.9 ??F) (Oral) Resp 18 SpO2 96% No notable events documented. E MAKER * Anesthesia Procedure Notes - Nolvia Multani MD - 10/18/2023 9:51 AM CSTAssociated Order(s): Peripheral IV Catheter Peripheral IV Catheter Patient location: OR Staff: Placed by: Anesthesiologist: Alvaro Wayne MD Preprocedure prep: Prep solution: alcohol PPE: gloves and provider hat/mask PIV line: Laterality: right Site: hand Catheter size: 18 g Technique: anatomical landmarks and direct visualization Procedure details: good blood return Number of attempts: 1 Assessment: Events: patient tolerated procedure well with no complications E MAKER * Anesthesia Procedure Notes - Nolvia Multani MD - 10/18/2023 9:50 AM CSTAssociated Order(s): Airway Airway Patient location: OR Urgency: elective Indications for airway management: anesthesia Difficult airway: no Staff: Supervising provider: Alvaro Wayne MD Placed by: Resident: Nolvia Multani MD Emergent airway documentation: Risks and benefits discussed: yes Consent obtained: yes Consent given by: patient Airway prep: Preoxygenated: yes Patient position: sniffing Mask difficulty assessment: 0 - not attempted Spontaneous ventilation during airway: absent Sedation level during airway: GA Final airway details: Final airway type: supraglottic airway Final supraglottic airway: IGel SGA size: 4 Number of attempts: 1 Planned trial extubation: yes E MAKER * Anesthesia Preprocedure Evaluation - Alvaro Wayne MD - 10/11/2023 11:42 AM CST Images from the original note were not included. [facility] for Preoperative Assessment and Planning Preoperative Evaluation Record Evaluation type/location: CPAP [facility] Planned procedure site: [facility] (Pods 2/3/5/CARAMEL MAKER) Date: 10/11/23 Anesthesia Evaluation Hira Evans is a 73 y.o. male Procedure(s): FUSION SPINAL - POSTERIOR LUMBAR/THORACIC WITH INSTRUMENTATION: L4-5 open posterior spinal fusion with instrumentation, L4-5 transforaminal lumbar interbody fusion, L4-5 direct decompression, spinal cord monitoring, autograft, allograft, bone morphogenic protein SPINAL CORD MONITORING BONE GRAFT WITH BONE MORPHOGENIC PROTEIN DECOMPRESSION LUMBAR - POSTERIOR Pre-Op Diagnosis Codes: * Lumbar radiculopathy [M54.16] HISTORY HPI Hira is a 73 year old male with severe left lower extremity lumbar radiculopathy localizing to L4 and L5 secondary to left L4-L5 disc herniation and spondylosis. Hx of HTN, prostatectomy, GERD Past Medical History Information obtained from: patient and chart. Neurological Pertinent negatives: seizures; neuromuscular disease; CVA/stroke; TIA; CEA; ICA stenosis; dementia/mild cognitive impairment and carotid artery stent Cardiovascular + Hypertension Typical systolic BP - 130 Typical diastolic BP - 80 Pertinent negatives: CAD ; PR ; CABG ; valvular heart disease; valve replacement; atrial fibrillation; arrhythmia; pacemaker/ICD; PVD; DVT/PE; negative for CHF; drug-eluting stent(s); bare metal stent(s) and coronary angioplasty Respiratory Pertinent negatives: COPD; asthma; sleep apnea (KYLE); pulmonary hypertension; no O2 use outside thehospital and non-smoker Hepatic / Heme + History of thrombocytopenia Pertinent negatives: liver disease; history of anemia and history of Jigna positive Gastrointestinal + GERD - on daily therapy. Asymptomatic. Pertinent negatives: hiatal hernia Renal / + Renal disease Pertinent negatives: dialysis and nephrolithiasis Musculoskeletal/Pain + Chronic pain (lower back down to left leg) + Osteoarthritis Pertinent negatives: chronic opioid use and previous treatment for opioid use disorder Endocrine / Other + Obesity (BMI >30) + Cancer history Cancer type: prostate cancer s/p prostatectomy ~2010, hx of melanoma 2007. Pertinent negatives: diabetes mellitus; thyroid disease; rheumatological disease and transplanted organ Comments: Pt does not check BG: pt's Hgb A1C was 5.5 on 10/11/2023 Functional Capacity Functional capacity: <4 METs Functional capacity limited by a non-cardiovascular, non-pulmonary condition. Comments: Pt uses a walker at home for ambulation 2/2 LE weakness and pain. Denies cp/sob Review of Systems + muscle weakness (left is weaker than right on LE) + chronic pain (lower back down to left leg) + numbness/tingling (left leg numbness) + vision loss + heartburn (well managed) Pertinent negatives: productive cough; wheezing; SOB; recent cold/flu; fever; chest pain; palpitations; orthopnea; pedal edema; PND; Sickle Cell disease/trait; previous transfusion; transfusion reaction; melena/hematochezia; easy bruising; bleeding problems; syncope; dizziness; hard of hearing; nausea; dysphagia; diarrhea; dentures/partials; chipped/loose teeth; abdominal pain; diaphoresis and nounexpected weight change PAT Summary and Plans Cardiac risk classification of planned procedure: intermediate cardiac risk. Preoperative assessment status: lab tests ordered. Additional comments: Hira Evans is a 73 y.o. male who is being evaluated prior to undergoing an intermediate cardiac risk surgery. Revised Cardiac Risk Index factors are (none) for a total RCRI of 0 out of 6. Functional capacity is <4 METs. Obstructive sleep apnea (KYLE) screening status is STOP-Bang=3 suggesting moderate risk for KYLE, bicarbonate value pending Blood bank needs for day of procedure: Type and Screen only Pending labs/tests include: CBC BMP 14T&S PT CPAP-PTT Urinalysis flex DOS BG. <<Pt stopped mounjaro ~2 weeks ago>> Preoperative evaluation performed by Marychuy Sweet NP on 10/11/23 at 11:48 AM. . Follow up note Labs reviewed and are without significant findings. Surgeon's office reviews laboratory results independently, including final results of surgeon ordered labs. -->UA with probable UTI-- awaiting urine culture for confirmation. Epic message sent to surgeonsoffice notifying Follow-up completed by: Galina Ladd NP on 10/12/23 at 11:18 AM Follow up note Labs reviewed and are significant for: urine culture + E. coli. The patient is inpatient at [address] Vu examined and spoke to the patient: Percutaneous nephrostomy was performed yesterday. He remains on antibiotics. Blood cultures remainno growth to date. ...he has had this severe medical exacerbation with [...] a week from tomorrow, on October 23. CPAP will follow for discharge summary. Follow-up completed by: Janeen Braun NP on 10/15/23 at 9:03 AM Patient Active Problem List Diagnosis Date Noted Lumbar radiculopathy 10/08/2023 Gross hematuria 10/18/2022 Bladder [...] VASECTOMY 30 years ago No Known Allergies Med List Status: Nurse Complete Set By: Annelise Escalante RN at 10/11/2023 11:21 AM Taking? Last Dose Start Date End Date Provider acyclovir (ZOVIRAX) 400 mg tablet 10/11/2023 06/08/19 -- Fidelia Perdue MD cephalexin (KEFLEX) 500 mg capsule -- 10/09/22 -- ProviderFidelia MD cetirizine (ZyrTEC) 10 mg tablet 10/11/2023 -- -- Fidelia Perdue MD cholecalciferol (VITAMIN D-3) 5,000 unit capsule 10/11/2023 -- -- Fidelia Perdue MD coenzyme Q10 100 mg capsule Past Month -- -- ProviderFidelia MD DILT-XR 240 mg 24 hr capsule 10/11/2023 05/12/19 -- ProviderFidelia MD fish, bora,flax oils-om3,6,9no1 400-400-400 mg capsule Past Month -- -- ProviderFidelia MD irbesartan (AVAPRO) 300 mg tablet 10/11/2023 08/10/21 -- ProviderFidelia MD Mounarie 10 mg/0.5 mL pen injector Past Month 04/05/23 -- ProviderFidelia MD naproxen sodium 220 mg capsule 10/10/2023 -- -- Fidelia Perdue MD omeprazole (PriLOSEC) 20 mg capsule 10/11/2023 -- -- ProviderFidelia MD -- -- -- -- -- Current Outpatient Medications: acyclovir (ZOVIRAX) 400 mg tablet cephalexin (KEFLEX) 500 mg capsule cetirizine (ZyrTEC) 10 mg tablet cholecalciferol (VITAMIN D-3) 5,000 unit capsule coenzyme Q10 100 mg capsule DILT-XR 240 mg 24 hr capsule heraclio ignacio,flax oils-om3,6,9no1 400-400-400 mg capsule irbesartan (AVAPRO) 300 mg tablet Mounjaro 10 mg/0.5 mL pen injector naproxen sodium 220 mg capsule omeprazole (PriLOSEC) 20 mg capsule Social History Tobacco Use Smoking Status Former Packs/day: 1.00 Years: 8.00 Additional pack years: 0.00 Total pack years: 8.00 Types: Cigarettes Start date: 11/05/1968 Quit date: 11/05/1979 Years since quittin.9 Passive exposure: Past Smokeless Tobacco Never Alcohol Use: Not At Risk (10/11/2023) AUDIT-C [...] by TW Conv) Anesthesia problems Neg Hx PAT Physical Exam Airway Exam: Mallampati: II Cervical ROM: FROM TM distance: 3 Upper lip bite test class: 1 Cardiovascular Exam: Rate: regular Rhythm: regular Negative for peripheral edema Pulmonary Exam: LCTA, bilat EENT Exam: trachea midline Dental Exam: Appears intact Skin Exam: Skin is warm. Turgor is normal. Abdominal exam: Abdomen is soft. Bowel sounds are present. Current state: Patient's current state is cooperative. Relevant diagnostics: ECG(s): N/A Echocardiogram(s): N/A Stress test(s): N/A Cardiac catheterization(s): N/A PFT(s): N/A Vascular studies: N/A Other: 10/01/2023- Spinal MRI IMPRESSION: Moderate degenerative changes of the lumbar [...] left L5 nerve roots are likely affected. Vitals: 10/11/23 1102 10/11/23 1103 BP: 110/61 108/66 Pulse: 66 Resp: 16 SpO2: 98% PT: No results found for requested labs [...] for requested labs within last 30 days. STOP-Bang Total Score: 3 Joni index score: 90 AD8 Dementia Score: 0 Short Blessed Total Score: 3 DOS Physical Exam Medical history, medications, and allergies reviewed. Attestation: With today's edits, I endorse the findings of the anesthesia pre-evaluation assessment dated: 10/11/2023. Airway Exam: Mallampati: II Cervical ROM: FROM TM distance: >4 Cardiovascular Exam: Rate: regular Rhythm: regular Pulmonary Exam: LCTA, bilat EENT Exam: trachea midline Dental Exam: Appears intact Skin Exam: Skin is warm and dry. Capillary refill is < 3 seconds. Turgor is normal. Abdominal Exam: Abdomen is soft. Bowel sounds are present. Current state: Patient's current state is cooperative. Anesthesia Plan ASA 3 My patient is approved for the Anesthesia Controlled Medication protocol when under care of a PARKING LOT MANAGER Planned anesthesia: General Team communication plan: LMA Induction: Induction: intravenous. Postoperative Plan: Postoperative administration opioids intended. No postoperative mechanical ventilation intended. Patient's planned disposition post procedure is Outpatient. Informed Consent: Discussed plan with resident. Anesthesia [...] and agree to proceed. All questions answered. E MAKER E MAKER E MAKER E MAKER E MAKER documented in this encounter Plan of Treatment Not on file documented as of this encounter Procedures Procedure Name Priority Date/Time Associated Diagnosis Comments PERIPHERAL LINE Routine 10/18/2023 9:51 AM SIEVE MAKER ANESTHESIA INTUBATION Routine 10/18/2023 9:50 AM SIEVE MAKER documented in this encounter Results * Peripheral IV Catheter (10/18/2023 9:51 AM SIEVE MAKER) Narrative Nolvia Multani MD - 10/18/2023 9:51 AM SIEVE MAKER Nolvia Multani MD ? 10/18/2023 ??9:51 AM Peripheral IV Catheter Patient location: OR Staff: Placed by: Anesthesiologist: Alvaro Wayne MD Preprocedure prep: Prep solution: alcohol PPE: gloves and provider hat/mask PIV line: Laterality: right Site: hand Catheter size: 18 g Technique: anatomical landmarks and direct visualization Procedure details: good blood return Number of attempts: 1 Assessment: Events: patient tolerated procedure well with no complications Alvaro Wayne MD ANESTHESIA ORDERAB LES Final Result * Airway (10/18/2023 9:50 AM SIEVE MAKER) Narrative Nolvia Multani MD - 10/18/2023 9:50 AM SIEVE MAKER Nolvia Multani MD ? 10/18/2023 ??9:51 AM Airway Patient location: OR Urgency: elective Indications for airway management: anesthesia Difficult airway: no Staff: Supervising provider: Alvaro Wayne MD Placed by: Resident: Nolvia Multani MD Emergent airway documentation: Risks and benefits discussed: yes Consent obtained: yes Consent given by: patient Airway prep: Preoxygenated: yes Patient position: sniffing Mask difficulty assessment: 0 - not attempted Spontaneous ventilation during airway: absent Sedation level during airway: GA Final airway details: Final airway type: supraglottic airway Final supraglottic airway: IGel SGA size: 4 Number of attempts: 1 Planned trial extubation: yes Alvaro Wayne MD ANESTHESIA ORDERAB LES Final Result documented in this encounter Visit Diagnoses Not on filedocumented in this encounter Administered Medications Inactive Administered Medications - up to 3 most recent administrations Medication Order MAR Action Action Date Dose Rate Site cefTRIAXone (ROCEPHIN) injection intravenous, As needed, Starting on Helene 10/18/23 at 0949, Anesthesia Intra-op Given 10/18/2023 9:49 AM SIEVE MAKER 2,000 mg fentaNYL (SUBLIMAZE) preservative free injection intravenous, As needed, Starting on Helene 10/18/23 at 0934, Anesthesia Intra-op Given 10/18/2023 9:34 AM SIEVE MAKER 100 mcg HYDROmorphone (DILAUDID) injection intravenous, Administer over 2 Minutes, As needed, Starting on Helene 10/18/23 at 1029, Anesthesia Intra-op Given 10/18/2023 11:11 AM SIEVE MAKER 0.2 mg Given 10/18/2023 10:55 AM SIEVE MAKER 0.2 mg Given 10/18/2023 10:43 AM SIEVE MAKER 0.2 mg Lactated Ringer's (LR) infusion 30 mL/hr, intravenous, Continuous, Starting on Helene 10/18/23 at 0915, Pre-Op Restarted 10/18/2023 11:11 AM SIEVE MAKER Rate/Dose Verify 10/18/2023 9:23 AM SIEVE MAKER 30 mL/h r New Bag 10/18/2023 9:09 AM SIEVE MAKER 30 mL/hr 30 mL/hr ondansetron (ZOFRAN) injection intravenous, Administer over 2 Minutes, As needed, Starting on Helene 10/18/23 at 1105, Anesthesia Intra-op Given 10/18/2023 11:05 AM SIEVE MAKER 4 mg phenylephrine (ARIELLE-SYNEPHRINE) 1 mg/10 mL (100 mcg/mL) in sodium chloride 0.9% (premix) intravenous, As needed, Starting on Helene 10/18/23 at 0954, Anesthesia Intra-op Given 10/18/2023 10:00 AM SIEVE MAKER 200 m cg Given 10/18/2023 9:54 AM SIEVE MAKER 100 mcg propofoL (DIPRIVAN) 10 mg/mL IV intravenous, As needed, Starting on Helene 10/18/23 at 0934, Anesthesia Intra-op Given 10/18/2023 9:34 AM SIEVE MAKER 160 mg documented in this encounter Care Teams Shipping And Receiving Operator Relationship Specialty Start Date End Date Rl Medina DO [address] [place] [address] PCP - General 08/09/17 05/25/24 documented as of this encounter
--- OUTSIDE RECORDS SUMMARY | 2024-11-05 19:26 | XMS_ITS | Encounter Summary ---
Author Organization [facility] Healthcare Address [address] [place] [address] Care Team Providers Care Racecar Driver Name Role Phone Rl Medina DO Primary Care Provider Reason for Visit * Reason Comments Urinary Problem * Auth/Cert Specialty Diagnoses / Procedures Referred By Contrussell t Referred To Contact Diagnoses Ureteral colic Procedures na Referral ID Status Reason Start Date Expiration Date Visits Re quested Visits Authorized [id number] 1 1 Encounter Details Date Type Department Care Team (Late st Contact Info) Description 10/18/2023 8:45 AM LABOR RELATIONS SPECIALIST - 10/18/2023 10:55 AM LABOR RELATIONS SPECIALIST Surgery [facility] Operating Room [address] [place] [address] Gabriel Bennett MD [address] [facility] [address] [address] CYSTOSCOPY Surgery Details Date/Time Status Location OR Service Patient Class Case Cl ass Case Type Trauma Case? 10/18/2023 8:45 AM Posted [facility] OR POD 1 328 Urology Inpatient Time Sensitive - 1 Week Panel 1 Procedure LRB Anes Op Region Wound Class Comments CYSTOSCOPY Left General Urethra Class II - Guido an Contaminated PYELOGRAM - RETROGRADE Left Choice Perineum Class I - Clean LITHOTRIPSY - LASER Left Choice Abdomen Class I - Clean URETEROSCOPY Left Monitor Anesthes ia Care Perineum Class I - Clean PLACEMENT PREOPERATIVE STENT - URETERAL Left General Ureter Class I - Clean REMOVAL NEPHROSTOMY TUBE - FLOUROSCPY Left Monitor Anesthesia Care Flank Class II - Clean Contaminated Surgeon Surgeon Role Service Panel Gabriel Bennett MD Primary Urology 1 Vero Tolentino MD Resident - Assisting Urolog y 1 Rosi Fernandes MD Resident - Assisting Urology 1 documented in this encounter Social History [...] on file 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 LABOR RELATIONS SPECIALIST Gender Identity Not on file Sexual Orientation Not on file 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 Not on file Not on file Not on file documented as of this encounter Last Filed Vital Signs Vital Sign Reading Time Taken Comments Blood Pressure 141/87 10/18/2023 9:00 AM LABOR RELATIONS SPECIALIST Pulse 69 10/18/2023 9:00 AM LABOR RELATIONS SPECIALIST Temperature 37.7 ??C (99.9 ??F) 10/18/2023 9:00 AM CS T Respiratory Rate 19 10/18/2023 9:00 AM LABOR RELATIONS SPECIALIST Oxygen Saturation 95% 10/18/2023 9:00 AM LABOR RELATIONS SPECIALIST Inhaled Oxygen Concentration - - Weight 81.6 kg (180 lb) 10/13/2023 4:15 AM LABOR RELATIONS SPECIALIST Height 172.7 cm (5' 8 ) 10/13/2023 4:15 AM LABOR RELATIONS SPECIALIST Body Mass Index 29.7 10/13/2023 4:15 AM LABOR RELATIONS SPECIALIST documented in this encounter Discharge Summaries * Rafael Rodriguez NP - 10/30/2023 1:19 PM CST Images from the original note were not included. Spine Inpatient Discharge Summary Admitting Provider: Hayder Vu MD Discharge Provider: Hayder Vu Fo* Primary Care Physician at Discharge: Rl MedinaBernieDO [phone] Admission Date: 10/12/2023 Discharge Date: 10/30/2023 Primary [...] be performed for further evaluation. CT PE 12/19 IMPRESSION: 1. Acute pulmonary emboli involving the [...] URO BW MOB4 JORDAN 12/24/2023 2:20 PM [facility] BCT3 BJ N CT BJ Main IMG 12/24/2023 3:30 PM Carrie Jerez, PROOF TECHNICIAN SPINE BWMOB4 NS Chem/LFT Lab History Latest [...] 1 tablet (10 mg total) by mouth breaker operator before breakfast For: inflammation of the nose due to an allergy Commonly known as: ZyrTEC cholecalciferol 5,000 unit capsule Take 1 capsule (5,000 Units total) by mouth every morning For: low vitamin D levels Commonly known as: VITAMIN D-3 coenzyme Q10 100 mg capsule Take 1 capsule (100 mg total) by mouth breaker operator before breakfast cyclobenzaprine 5 mg tablet [...] mg capsule Take 1 tablet by mouth breaker operator before breakfast For: Supplement gabapentin 300 [...] says it's OK. *Do not do any a class lineman that cause you to twist, push or [...] previous diet Contact Information for Follow-ups [facility] (All Locations) Next Steps: Follow up Comments: Please schedule patient for follow up appointment. Section: Epilepsy Provider: First available Time Frame: First available Schedule with Transition of Care Clinic: No Questions: Please select the performing region: [facility] (All Locations) # of visits: 1 Referral Status: Pending Coordinator Review [facility] Home Care Services Specialty: Home Health and Hospice [address] [facility] [address] Next Steps: Follow up Questions: Service Line: [...] waterproof dressing while showering. Discharge Wound Type: Stitches/[place] -Stitches/annika will be removed at your next [...] Hayder Vu MD at 10/31/2023 3:37 PM LABOR RELATIONS SPECIALIST R RELATIONS SPECIALIST R RELATIONS SPECIALIST R RELATIONS SPECIALIST documented in this encounter Discharge Instructions * Discharge Instructions* Rafael Rodriguez NP - 10/30/2023 10:21 AM LABOR RELATIONS SPECIALIST Thoracic/Lumbar Spinal Fusion Post-Operative Instructions Questions: ?? For any post-operative questions, please contact Dr. Horace Mojica???s nurse, at [phone] via [employer]. Galina will view and respond to your [employer] questions sent to Dr. Vu. Wound Care: [...] you upon discharge. Please call Galina at [phone] if unable to keep appointment. Nov 09, 2023 11:[address] Rl Medina Post-hospitalization appointment Nov 12, 2023 9:20 AM New with Hayder Vu MD [facility] Orthopaedic Surgery (WOOD ORTHOPEDIC SURGERY) [address] [facility] [address] 6th [address] [facility] [address] Dec 03, 2023 1:20 PM Return with Hayder Vu MD [facility] Orthopaedic Surgery ( ORTHOPEDIC SURGERY) [address] [facility] [address] [facility] [id number] Dec 13, 2023 1:20 PM Return with Pan Irene MD [facility] Urology ( SURGERY) [address] [facility] [address] [facility] [phone] CALL [facility] NEUROLOGY FOR FOLLOW UP APPT WITH THE [facility] EPILEPSY DEPARTMENT [phone] Emergencies: SIGNS OF AN EMERGENT SITUATION INCLUDE-If [...] it is best that you return to [facility] for your emergent care. Please call the emergency exchange at [phone] or toll free any time of the day or night on the daysthe office is closed, so that the emergent care can be initiated for you. Please follow these instructions for emergency calls: -During business hours (Sunday through Sunday 8am-4:30 PM except for holidays), call [phone]. The inseam trimming machine operator will connect you with Dr. Vu???s nurse. Dr. Vu???s nurse reports all emergencies to Dr. Vu. -After business hours (after 4:30 PM and before 8:00am) you may call the Emergency Orthopaedic Exchange at [phone] or TOLL [phone]. The inseam trimming machine operator metal fabrication supervisor will contact Dr. Echeverria???s staff. IMPORTANT: Refills of medications need to be done during business hours-NO pain medication refills will be given over the phone after hours. Please call with any questions or concerns. We will be glad to assist you in any way during your recovery period. Dr. Vu???s Staff Galina Franco, RN: [phone] R RELATIONS SPECIALIST R RELATIONS SPECIALIST R RELATIONS SPECIALIST R RELATIONS SPECIALIST R RELATIONS SPECIALIST R RELATIONS SPECIALIST documented in this encounter Medications at Time [...] 1 tablet (10 mg total) by mouth breaker operator before breakfast 4 cholecalciferol (VITAMIN D-3) 5,000 unit capsuleIndication s:Vitamin D Deficiency Take 1 capsule (5,000 Units total) by mouth every morning 4 coenzyme Q10 100 mg capsule Take 1 capsule (100 mg total) by mouth breaker operator before breakfast 4 cyclobenzaprine (FLEXERIL) 5 [...] capsuleIndication s:Supplement Take 1 tablet by mouth breaker operator before breakfast 4 gabapentin (NEURONTIN) 300 [...] Patient choice (Home Health/Hospice) list given to patient/new accounts banking representative? Not Applicable Nursing Home Facility list given to patient/new accounts banking representative? Not Applicable IM letter completed with patient at bedside. Patient informed of the planned discharge date, the date the beneficiary's financial liability begins, the beneficiary's appeal rights, and how and when to initiate an appeal. Patient provided copy of IM letter, IM letter placed in unit's designated medical record bin to be uploaded into patient's chart. CLAIRE Villagomez, RN [place] * Nathalie Herrera RN - 10/30/2023 9:08 AM CST 10/30/23 0908 Communications Important Message from Medicare notice given to patient? Not Applicable [place] letter given? Not Applicable Patient choice (Home Health/Hospice) list given to patient/new accounts banking representative? Yes Nursing Home Facility list given to patient/new accounts banking representative? Not Applicable Fiduciary Responsibility Patient/Designated decision maker was informed of [facility] fiduciary relationship as necessary Huc noted patient has been recommended for home heatlh by PT/OT. Huc met with thepatient at bedside to discuss recommendations by therapy and to work on a potential discharge disposition plan. Huc provided education to patient on therapy recommendations and home health services. Patient reported being interested in home health. gallery manager provided a home health list to patient. Patient selected the following choices (preference order): Residential ([facility]) Home Health [facility] Home Health gallery manager sent out referrals via [employer]. CM awaiting acceptance from a home health agency and [facility] to work on discharge planning with patient and family. Patient states he has own wheeled walker. CLAIRE Villagomez, RN R RELATIONS SPECIALIST Nathalie Jacob PT - 10/30/2023 7:32 AM CST Physical [...] treatment team and contact the PT or MOLECULAR MODELER currently assigned to this patient. If a physical therapy clinician is not assigned to this patient, please call [phone]. 10/30/23 0948 PT Last Visit Session Type Treatment (and [...] SPV via logroll - ADEQUATE FOR DISCHARGE R RELATIONS SPECIALIST * Nasir Manzanares MD - 10/30/2023 6:38 [...] BP pends, Dispo pending home with setup [facility] today Objective Vitals: 24hr Min/Max: [...] For susceptibility results, refer to accession number [id number] on the urine culture from 10/11/23 MICROBIOLOGY [...] Manzanares M.D. Department of Orthopaedic Surgery, PGY-3 [facility] Please use [employer] to page/call the appropriate Orthopaedic Surgery Team/Resident if questions or concerns Please call with questions during daytime. See below for overnight issues. If you know the resident's name on the appropriate orthopaedic surgery team, please use [employer] to page resident directly. If questions arise and the appropriate resident can't be reached or you are calling overnight, please contact [phone] ([facility] 7:30 PM - 6:30 AM - Floor Resident) or [phone] (24 hours/day - Consult Resident) Cosigned by Hayder Vu MD at 11/06/2023 6:43 PM LABOR RELATIONS SPECIALIST R RELATIONS SPECIALIST R RELATIONS SPECIALIST * Nasir Manzanares MD - 10/29/2023 1:32 PM CST Brief Ortho Progress Note: I did not personally visualize the drain tip after it was inadvertantly removed last night. However, per report from load mixer, the drain tip looked good and entire drain was removed. Nasir Manzanares MD Orthopaedic Surgery PGY2 R RELATIONS SPECIALIST R RELATIONS SPECIALIST * Artie Real MD PhD - 10/29/2023 [...] water 2,000 mg 2,000 mg intravenous Q8H [facility] enoxaparin (LOVENOX) syringe 80 mg 1 mg/kg subcutaneous Q12H [facility] gabapentin (NEURONTIN) capsule 300 mg 300 mg oral Q8H [facility] levETIRAcetam (KEPPRA) tablet 1,000 mg 1,000 [...] non-contrast head CT. Responsible Team Darrian Bone ([phone]) Artie Real ([phone]) Hira Segura (Chief) For any questions or concerns, please contact the nurse practitioner signed in to the chart. If youare unable to reach them, you may contact the residents as listed. If it is after 6pm or you are unable to reach the PROOF TECHNICIAN or resident team, please page the Neurosurgery Call Pager at [phone]. Note created by Artie Real MD PhD on 10/29/2023 at 7:20 AM. Cosigned by Gen Murray MD at 10/29/2023 4:52 PM LABOR RELATIONS SPECIALIST R RELATIONS SPECIALIST R RELATIONS SPECIALIST * Nasir Manzanares MD - 10/29/2023 7:18 [...] For susceptibility results, refer to accession number [id number] on the urine culture from 10/11/23 MICROBIOLOGY (.) 10/11/2023 Final Report: Greater than or equal to 100,000 colonies/mL of Escherichia coli Greater than or equal to 100,000 colonies/mL of Escherichia coli #2 MICROBIOLOGY 03/15/2023 Final Report: Less than 100,000 colonies/mL (clinically insignificant growth based on current clinical standards) MICROBIOLOGY Final Report: No growth 09/24/2019 Assessement: iHra Evans is a 73 y.o. male s/p [...] Manzanares M.D. Department of Orthopaedic Surgery, PGY-3 [facility] Please use [employer] to page/call the appropriate Orthopaedic Surgery Team/Resident if questions or concerns Please call with questions during daytime. See below for overnight issues. If you know the resident's name on the appropriate orthopaedic surgery team, please use [employer] to page resident directly. If questions arise and the appropriate resident can't be reached or you are calling overnight, please contact [phone] (Sun- 7:30 PM - 6:30 AM - Floor Resident) or [phone] (24 hours/day - Consult Resident) Cosigned by Hayder Vu MD at 11/06/2023 6:43 PM LABOR RELATIONS SPECIALIST R RELATIONS SPECIALIST R RELATIONS SPECIALIST * Shane Bowen, OT - 10/28/2023 11:09 [...] not assigned to this patient, please call [phone]. 10/28/23 3136 General Session Type Treatment OT Received On [...] OT OT - OK to Discharge No R RELATIONS SPECIALIST * Carey Hein, PT - 10/28/2023 10:00 [...] treatment team and contact the PT or MOLECULAR MODELER currently assigned to this patient. If a physical therapy clinician is not assigned to this patient, please call [phone]. 10/28/23 1000 PT Last Visit Session Type [...] with all mobility to allow return to [facility] Problem: Mobility Start Date: 10/28/23 Goal Start [...] 11/04/23 -- Goal Details: SPV with WW R RELATIONS SPECIALIST * Nasir Manzanares MD - 10/28/2023 8:32 [...] For susceptibility results, refer to accession number [id number] on the urine culture from 10/11/23 MICROBIOLOGY [...] M.D. Department of Orthopaedic Surgery, PGY-3 [facility] [place]/[facility] Please use [email or web address] to page/call the appropriate Orthopaedic Surgery Team/Resident if questions or concerns Please call with questions during daytime. See below for overnight issues. If you know the resident's name on the appropriate orthopaedic surgery team, please use [employer] to page resident directly. If questions arise and the appropriate resident can't be reached or you are calling overnight, please contact [phone] ([place]- 7:30 PM - 6:30 AM - Floor Resident) or [phone] (24 hours/day - Consult Resident) Cosigned by Hayder Vu MD at 11/06/2023 6:43 PM LABOR RELATIONS SPECIALIST R RELATIONS SPECIALIST R RELATIONS SPECIALIST * Shane Bowen, OT - 10/27/2023 10:26 [...] not assigned to this patient, please call [phone]. 10/27/23 1026 General Session Type Treatment OT [...] task) LE Dressing: Equipment Utilized Sock aid;Dressing stick;Liaison Officer Toileting Toileting: Where assessed Toilet Toileting: Level [...] -- Reviewed By Ana Hampton RN 10/26/23 1137 Nathen Maharaj RN 10/24/23 1801 R RELATIONS SPECIALIST * Nasir Manzanares MD - 10/27/2023 8:02 [...] For susceptibility results, refer to accession number [id number] on the urine culture from 10/11/23 MICROBIOLOGY [...] Manzanares M.D. Department of Orthopaedic Surgery, PGY-3 [facility] Please use [employer] to page/call the appropriate Orthopaedic Surgery Team/Resident if questions or concerns Please call with questions during daytime. See below for overnight issues. If you know the resident's name on the appropriate orthopaedic surgery team, please use [employer] to page resident directly. If questions arise and the appropriate resident can't be reached or you are calling overnight, please contact [phone] ([facility] 7:30 PM - 6:30 AM - Floor Resident) or [phone] (24 hours/day - Consult Resident) Cosigned by Hayder Vu MD at 11/06/2023 6:43 PM LABOR RELATIONS SPECIALIST R RELATIONS SPECIALIST R RELATIONS SPECIALIST * Ana Hampton RN - 10/26/2023 5:44 PM CST Pt transferred to room [address] [place] [address] Face to face report given to annetta MACKEY. belongings transferred with pt. Heparin gtt to be d/c. Labs obtained prior to transfer. R RELATIONS SPECIALIST * Luana Singh RD - 10/26/2023 3:07 [...] Adult Diet Regular Diet effective now Question: ([facility]) Diet type Answer: Regular 10/25/23 0532 10/24/23 2100 Bedtime snack At bedtime Comments: If bedtime BG is less than 100mg/dl, give patient a 15 gram carbohydrate snack. 10/24/23 0353 Assessment / Impression: [place] [address] overnight. Spoke to pt and at bedside. Reports pt was eating well MOLECULAR MODELER, appetite reduced following his surgery but has [...] RD following. Joleen Singh, MS, RD, LD [facility] [phone] On-call/weekend: [phone] R RELATIONS SPECIALIST * Aston Tran PTA - 10/26/2023 2:05 PM CST 10/26/23 1405 PT Last Visit PT Missed Visit Reason Family declined;Other (comment) (Pt's has politely declined PT at this time citing increased pain and fatigue following prior OT session. Pt's requests that PT staff follow-up in AM.) Recommendation/Plan PT - Next Appointment 10/27/23 R RELATIONS SPECIALIST * Shane Bowen, MORAIMA - 10/26/2023 9:53 AM CST Occupational Therapy [...] not assigned to this patient, please call [phone]. 10/26/23 9564 General Session Type Treatment OT Received On [...] for task) LE Dressing: Equipment Utilized Sock aid;Liaison Officer;Dressing stick Toileting Toileting: Where assessed Chair Toileting: [...] -- Reviewed By Nathen Maharaj RN 10/24/231800 R RELATIONS SPECIALIST * Nasir Manzanares MD - 10/26/2023 7:08 [...] For susceptibility results, refer to accession number [id number] on the urine culture from 10/11/23 MICROBIOLOGY [...] M.D. Department of Orthopaedic Surgery, PGY-3 [facility] [place]/[facility] Please use [employer] to page/call the appropriate Orthopaedic Surgery Team/Resident if questions or concerns Please call with questions during daytime. See below for overnight issues. If you know the resident's name on the appropriate orthopaedic surgery team, please use [employer] to page resident directly. If questions arise and the appropriate resident can't be reached or you are calling overnight, please contact [phone] ([place]- 7:30 PM - 6:30 AM - Floor Resident) or [phone] (24 hours/day - Consult Resident) Cosigned by Hayder Vu MD at 10/26/2023 1:04 PM LABOR RELATIONS SPECIALIST R RELATIONS SPECIALIST R RELATIONS SPECIALIST R RELATIONS SPECIALIST Associated attestation - Hayder Vu Jr., MD - 10/26/2023 1:04 PM LABOR RELATIONS SPECIALIST Attending Attestation I have seen and examined [...] questions were answered. Hayder Vu Jr., MD Head Of Drama Department of Orthopaedic Surgery Division of Spine Surgery [place], [place] Laundry Pricing Clerk done by [employer]; therefore, variances and inaccuracies may occur. * Tia Nolan, DONTAE - 10/25/2023 9:09 PM CSTAssociated Order(s): Critical Care Post-Procedure Diagnose(s): Cardiac arrest (HCC) Surgical ICU Daily Progress Team: Blue PM Subjective Patient is a 73 y.o. male admitted on 10/12/2023 6:25 PM with chief complaint of seizure and cardiac arrest post PSF Acute overnight events: Hgb downtrend recheck at 0600 HPI: 73yo male [id number] for complicated E. Coli UTI prior undergoing [...] hours) at 10/25/20232108 Last data filed at 10/25/20231899 Gross per 24 hour Intake 2470.88 ml [...] been reviewed with attending, Dr. 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 Otherwise no c/f falls prior Prior Function Comments: Patient reports symptoms began in 07/2023; however, MOLECULAR MODELER was IND with all I/ADLs and was [...] (Lumbar) Pain Interventions: Repositioned, Rest, RN Notified (RN Giovana provided pain medications for management of symptoms) [...] name and address after me: Hayder Reddy [address] [place] [address] Without looking at the clock, tell me [...] -- Reviewed By Nathen Maharaj RN 10/24/23 6921 For questions, please review the treatment team and contact the occupational therapist currently assigned to this patient. If an occupational therapist is not assigned to this patient, please call [phone]. R RELATIONS SPECIALIST * Alisa Nath, PT - 10/25/2023 8:30 [...] treatment team and contact the PT or MOLECULAR MODELER currently assigned to this patient. If a physical therapy clinician is not assigned to this patient, please call [phone]. 10/25/23 0830 PT Last Visit Session Type Re-Evaluation (2/ OR for PSIF c/b cardiac arrest and decline in functional mobility) PT Received On 10/25/23 Safe Environment Arm band checked;Patient found in supine;Gait belt not utilized, see comment (12/07 spine incision) Subjective Agreeable to Therapy Family/Caregiver [...] with all mobility to allow return to [facility] Problem: Transfers Start Date: 10/25/23 Goal Start Date Expected End Date End Date STG - Patient to transfer to and from sit to supine 10/25/23 10/31/23 -- Goal Details: Min A with use of log roll Reviewed By Nathen Maharaj RN 10/24/231800 R RELATIONS SPECIALIST * Nasir Manzanares MD - 10/25/2023 7:53 [...] For susceptibility results, refer to accession number [id number] on the urine culture from 10/11/23 MICROBIOLOGY [...] Manzanares M.D. Department of Orthopaedic Surgery, PGY-3 [facility] Please use [employer] to page/call the appropriate Orthopaedic Surgery Team/Resident if questions or concerns Please call with questions during daytime. See below for overnight issues. If you know the resident's name on the appropriate orthopaedic surgery team, please use [employer] to page resident directly. If questions arise and the appropriate resident can't be reached or you are calling overnight, please contact [phone] ([place]- 7:30 PM - 6:30 AM - Floor Resident) or [phone] (24 hours/day - Consult Resident) Cosigned by Hayder Vu MD at 10/26/2023 12:58 PM LABOR RELATIONS SPECIALIST R RELATIONS SPECIALIST R RELATIONS SPECIALIST * Luana Brady NP - 10/25/2023 7:04 AM CST Surgical ICU Daily Progress Team: Fredy KINNEY Subjective Hira Evans is a 73 y.o. [...] Avel Bourne MD at 10/26/2023 5:50 PM LABOR RELATIONS SPECIALIST R RELATIONS SPECIALIST R RELATIONS SPECIALIST * Hayden Barton MD - 10/24/2023 6:26 PM CST Surgical ICU Daily Progress Team: Blue PM Subjective Hira Evans is a 73 y.o. male admitted on 10/12/2023 6:25 PM with chief complaint of seizure and cardiac arrest post PSF. PMH: DJD, prostate cancer s/p prostatectomy (2010), HTN Abbreviated Hospital Course: 12/8 presented to ED from preoperative anesthesia visit [...] Intake/Output: Intake/Output Summary (Last 24 hours) at 10/24/20231825 Last data filed at 10/24/2023 1800 Gross [...] EKG/Min 82 BPM Atrial Rate 82 BPM SD-Interval (MSEC) 166 ms QRS-Interval (MSEC) 78 ms QT-Interval (MSEC) 384 ms QTc 448 ms P Alpine 34 degrees R Alpine -30 degrees T Alpine -13 degrees Diagnosis Normal sinus rhythm Left [...] Arceo Jr., MD at 10/25/2023 3:43 AM LABOR RELATIONS SPECIALIST R RELATIONS SPECIALIST R RELATIONS SPECIALIST * Javad Sow PT - 10/24/2023 12:03 PM CST Physical Therapy 10/24/23 1203 General PT Missed Visit Reason Family declined (request to allow patient to sleep) R RELATIONS SPECIALIST * Dari Dickens [facility] - 10/24/2023 10:51 AM CST Patient profile has been reviewed by clinical customer specialist on 10/24/2023. Case reviewed on rounds with [...] tablet 5 mg, 5 mg, oral, Q8H Alaina CHAWLA Anna, NP Carrier Fluids for Secondary Infusion - 0.9% Sodium Chloride, 30 mL, intravenous, PRAshli, Oneyda Foley NP Carrier Fluids for Secondary Infusion - 0.9% Sodium Chloride, 30 mL, intravenous, PRN, Chichi Reyes MD Carrier Fluids for Secondary Infusion - 0.9% Sodium Chloride, 30 mL, intravenous, PRN, Marychuy Sweet NP ceFAZolin (ANCEF) 2,000 mg/20 mL in sterile water (premix) 2,000 mg, 2,000 mg, intravenous, Q8H [facility], Yesica Smith NP, 2,000 mg at [...] capsule 300 mg, 300 mg, oral, Q8H CAMMY, Amos Langley NP glucagon injection 1 mg, [...] injection 0-10 Units, 0-10 Units, subcutaneous, Q4H Jose CHAWLA Shawn Poya, MD, 2 Units at 10/24/23 0451 levETIRAcetam (KEPPRA) 1,000 mg/100 mL in sodium chloride (premix) 1,000 mg, 1,000 mg, intravenous,Q12H Eric CHAWLA Nneoma Stephanie, MD, 1,000 mg at 10/24/23 0936 [Held by Provider] multivit ympovbjf-oepv-ZP-calcium (THERA-M) tablet 1 tablet, 1 tablet, oral, [...] tablet, 2 tablet, oral, BID, Rob Langley, DONTAE sodium chloride 0.9% flush 0.5-20 mL, 0.5-20 mL, intra-catheter, Q8H [facility], Oneyda Foley NP, 10 mL at 10/24/23 [...] 1,500 mg, 1,500 mg, intravenous, Q12H, Oneyda Foley, DONTAE Dickens [facility], PharmD, BCPS, BCCCP R RELATIONS SPECIALIST * Rob Langley, DONTAE - 10/24/2023 6:48 AM CSTAssociated Order(s): Critical [...] EKG/Min 82 BPM Atrial Rate 82 BPM SD-Interval (MSEC) 166 ms QRS-Interval (MSEC) 78 ms QT-Interval (MSEC) 384 ms QTc 448 ms P Alpine 34 degrees R Alpine -30 degrees T Alpine -13 degrees Diagnosis Normal sinus rhythm Left [...] L ureteral stent aborted by Urology - 12/10: L perc nephrostomy by IR - 10/18: [...] Avel Bourne MD at 10/24/2023 6:17 PM LABOR RELATIONS SPECIALIST R RELATIONS SPECIALIST R RELATIONS SPECIALIST R RELATIONS SPECIALIST * Ata Marquez MD - 10/24/2023 5:56 [...] Edited by: Oneyda Foley NP at 10/23/2023 5974 Objective Vitals: 24hr Min/Max: Temp Min: 36.5 [...] 5/5 5/5 Wrist flexion (C7) 4/5 5/5 [employer] Rater (C8) 4/5 5/5 Interosseous of hand (T1) [...] 10/24/23 0325 10/24/23 0020 10/23/23 2303 10/23/23 23010/23/23 230 SODIUM mmol/L -- -- -- -- 137 [...] For susceptibility results, refer to accession number [id number] on the urine culture from 10/11/23 MICROBIOLOGY [...] Marquez M.D. Department of Orthopaedic Surgery, PGY-3 [facility] Please use [employer] to page/call the appropriate Orthopaedic Surgery Team/Resident if questions or concerns Please call with questions during daytime. See below for overnight issues. If you know the resident's name on the appropriate orthopaedic surgery team, please use [employer] to page resident directly. If questions arise and the appropriate resident can't be reached or you are calling overnight, please contact [phone] ([facility] 7:30 PM - 6:30 AM - Floor Resident) or [phone] (24 hours/day - Consult Resident) Cosigned by Hayder Vu MD at 10/24/2023 1:48 PM LABOR RELATIONS SPECIALIST R RELATIONS SPECIALIST R RELATIONS SPECIALIST Associated attestation - Hayder Vu Jr., MD - 10/24/2023 1:48 PM LABOR RELATIONS SPECIALIST Attending Attestation I have seen and examined [...] questions or concerns. Hayder Vu Jr., MD Head Of Drama Department of Orthopaedic Surgery Division of Spine Surgery [facility] [place], [place] Laundry Pricing Clerk done by [employer]; therefore, variances and inaccuracies may occur. * Pipe Moseley MD - 10/23/2023 3:10 PM CST Daily Progress Note Division of Hospital Medicine Name: Hira Evans : 1950 Today's Date: October 23, 2023 Age: 73 y.o. male Admission: 10/12/2023 Bed: OR/- LOS: 10 days Subjective Chief complaint: urine infection Interval History NICOLASA, dontaeo for spine surgery today by ortho Objective [...] chloride 0.9%, 0.5-20 mL, intra-catheter, Q8H CAMMY [MAR Hold] sodium chloride 0.9%, 0.5-20 mL, intra-catheter, [...] Alice Rios MD, PhD. The radiology attending physicianhas personally reviewed this study, and had reviewed [...] of spine with ortho. Pipe Moseley MD R RELATIONS SPECIALIST * Luciana Dickerson, PT - 10/23/2023 8:28 AM CST Physical Therapy 10/23/23 0828 General PT Missed Visit Reason Other (comment) (Per medical chart, pending OR today with ortho spine. Will follow up once post-op) R RELATIONS SPECIALIST * Nasir Manzanares MD - 10/23/2023 6:14 [...] For susceptibility results, refer to accession number [id number] on the urine culture from 10/11/23 MICROBIOLOGY [...] the appropriate orthopaedic surgery team, please use [email or web address] to page resident directly. If questions arise and the appropriate resident can't be reached or you are calling overnight, please contact [phone] ([facility]- 7:30 PM - 6:30 AM - Floor Resident) or [phone] (24 hours/day - Consult Resident) Cosigned by Hayder Vu MD at 10/23/2023 4:10 PM LABOR RELATIONS SPECIALIST R RELATIONS SPECIALIST R RELATIONS SPECIALIST Associated attestation - Hayder Vu Jr., MD - 10/23/2023 4:10 PM LABOR RELATIONS SPECIALIST Attending Attestation I have seen and examined [...] tibialis anterior, EHL. Hayder Vu Jr., MD Head Of Drama Department of Orthopaedic Surgery Division of Spine Surgery [facility] [place], [place] Laundry Pricing Clerk done by [employer]; therefore, variances and inaccuracies may occur. * Jimenez Henao MD - 10/22/2023 3:29 PM CST Daily Progress Note Division of Hospital Medicine Name: Hira Evans : 1950 Today's Date: October 22, 2023 Age: 73 y.o. male Admission: 10/12/2023 Bed: [id number] LOS: 9 days Subjective Chief complaint: back [...] 33 minutes which was spent performing a gkck-mm-ivfc encounter and personally completing the provider-level activities documented in the note. This includes time spent prior to the visit and after the visit in direct care of the patient. This time does not include time spent in any separately reportable services. Jimenez Henao MD R RELATIONS SPECIALIST * Zehra Cook MD - 10/22/2023 6:43 [...] upcoming Tuesday 10/23. Please make NPO at [place], hold DVT prophylaxis. Edited by: Zehra Cook [...] For susceptibility results, refer to accession number [id number] on the urine culture from 10/11/23 MICROBIOLOGY [...] Ambulate with assist DVT ppx: Hold at [place] for OR tomorrow Therapy: PT/OT for OOB/mobilization [...] the appropriate orthopaedic surgery team, please use [email or web address] to page resident directly. If questions arise and the appropriate resident can't be reached or you are calling overnight, please contact [phone] ([facility]- 7:30 PM - 6:30 AM - Floor Resident) or [phone] (24 hours/day - Consult Resident) Cosigned by Hayder Vu MD at 10/23/2023 7:36 AM LABOR RELATIONS SPECIALIST R RELATIONS SPECIALIST R RELATIONS SPECIALIST * Jimenez Henao MD - 10/21/2023 10:51 AM CST Daily Progress Note Division of Hospital Medicine Name: Hira Evans : 1950 Today's Date: October 21, 2023 Age: 73 y.o. male Admission: 10/12/2023 Bed: [id number] LOS: 8 days Subjective Chief complaint: back [...] 28 minutes which was spent performing a ldbt-vq-sacz encounter and personally completing the provider-level activities documented in the note. This includes time spent prior to the visit and after the visit in direct care of the patient. This time does not include time spent in any separately reportable services. Jimenez Henao MD R RELATIONS SPECIALIST * Jimenez Henao MD - 10/20/2023 2:55 PM CST Daily Progress Note Division of Hospital Medicine Name: Hira Evans : 1950 Today's Date: October 20, 2023 Age: 73 y.o. male Admission: 10/12/2023 Bed: [id number] LOS: 7 days Subjective Chief complaint: back [...] placed. Procedure was aborted and 16 F hraris placed in bladder to drainage. Also IR [...] 28 minutes which was spent performing a sjka-ui-lryg encounter and personally completing the provider-level activities documented in the note. This includes time spent prior to the visit and after the visit in direct care of the patient. This time does not include time spent in any separately reportable services. Jimenez Henao MD R RELATIONS SPECIALIST * Belen Hennessy PA - 10/19/2023 1:59 [...] Belen Hennessy PA-C Interventional Radiology Available via [employer] M-F 7 AM until 3 PM IR call pager M-F after 3 PM or on weekends If the patient does not already have a follow-up appointment arranged, please place order and then please call the [employer] restaurant front manager at between 7:30 AM and 4:00 PM. R RELATIONS SPECIALIST * Jimenez Henao MD - 10/19/2023 12:50 PM CST Daily Progress Note Division of Hospital Medicine Name: Hira Evans : 1950 Today's Date: October 19, 2023 Age: 73 y.o. male Admission: 10/12/2023 Bed: [id number] LOS: 6 days Subjective Chief complaint: back [...] 50 minutes which was spent performing a hlkq-nc-vfxi encounter and personally completing the provider-level activities documented in the note. This includes time spent prior to the visit and after the visit in direct care of the patient. This time does not include time spent in any separately reportable services. Jimenez Henao MD R RELATIONS SPECIALIST * Jimenez Henao MD - 10/18/2023 5:15 PM CST Daily Progress Note Division of Hospital Medicine Name: Hira Evans : 1950 Today's Date: October 18, 2023 Age: 73 y.o. male Admission: 10/12/2023 Bed: [id number] LOS: 5 days Subjective Chief complaint: back [...] 55 minutes which was spent performing a qgls-df-kgbo encounter and personally completing the provider-level activities documented in the note. This includes time spent prior to the visit and after the visit in direct care of the patient. This time does not include time spent in any separately reportable services. Jimenez Henao MD R RELATIONS SPECIALIST * Osorio Calle MD - 10/18/2023 6:54 [...] For susceptibility results, refer to accession number [id number] on the urine culture from 10/11/23 MICROBIOLOGY [...] the appropriate orthopaedic surgery team, please use [email or web address] to page resident directly. If questions arise and the appropriate resident can't be reached or you are calling overnight, please contact [phone] ([facility] 7:30 PM - 6:30 AM - Floor Resident) or [phone] (24 hours/day - Consult Resident) Cosigned by Hayder Vu MD at 10/18/2023 12:31 PM LABOR RELATIONS SPECIALIST R RELATIONS SPECIALIST R RELATIONS SPECIALIST * Michelle Harris PA - 10/17/2023 3:10 [...] site. - IR to continue to follow. BONITA Damon-Maddie Interventional Radiology Available via [employer] M-F 7 AM until 3 PM. IR call pager M-F after 3 PM or on weekends. If the patient does not already have a follow-up appointment arranged, please place order and then please call the [employer] restaurant front manager at between 7:30 AM and 4:00 PM. R RELATIONS SPECIALIST * Jimenez Henao MD - 10/17/2023 2:46 PM CST Daily Progress Note Division of Hospital Medicine Name: Hira Evans : 1950 Today's Date: October 17, 2023 Age: 73 y.o. male Admission: 10/12/2023 Bed: [id number] LOS: 4 days Subjective Chief complaint: back [...] 60 minutes which was spent performing a bvtx-bt-cqao encounter and personally completing the provider-level activities documented in the note. This includes time spent prior to the visit and after the visit in direct care of the patient. This time does not include time spent in any separately reportable services. Jimenez Henao MD R RELATIONS SPECIALIST * Luciana Dickerson, PT - 10/17/2023 2:21 [...] POC Prior Function Prior Function Level of Real: Independent functional transfers, Independent with ambulation Lives With: Spouse Receives Help From: Spouse/Significant other (director multimedia assist as needed) Fall within the last [...] all mobility to allow return to PLOF R RELATIONS SPECIALIST * Hayden Youngblood MD - 10/17/2023 8:30 [...] For susceptibility results, refer to accession number [id number] on the urine culture from 10/11/23 MICROBIOLOGY [...] the appropriate orthopaedic surgery team, please use [email or web address] to page resident directly. If questions arise and the appropriate resident can't be reached or you are calling overnight, please contact [phone] ([facility] 7:30 PM - 6:30 AM - Floor Resident) or [phone] (24 hours/day - Consult Resident) Cosigned by Hayder Vu MD at 10/17/2023 8:47 AM LABOR RELATIONS SPECIALIST R RELATIONS SPECIALIST R RELATIONS SPECIALIST * Hayder Vu MD - 10/17/2023 7:19 [...] questions or concerns. Hayder Vu Jr., MD Head Of Drama Department of Orthopaedic Surgery Division of Spine Surgery [facility] [place] R RELATIONS SPECIALIST R RELATIONS SPECIALIST * Jimenez Henao MD - 10/16/2023 12:31 PM CST Daily Progress Note Division of Hospital Medicine Name: Hira Evans : 1950 Today's Date: October 16, 2023 Age: 73 y.o. male Admission: 10/12/2023 Bed: [id number] LOS: 3 days Subjective Chief complaint: back [...] 80 minutes which was spent performing a mili-xn-oeup encounter and personally completing the provider-level activities documented in the note. This includes time spent prior to the visit and after the visit in direct care of the patient. This time does not include time spent in any separately reportable services. Jimenez Henao MD R RELATIONS SPECIALIST * Collin Barnes MD - 10/16/2023 8:24 [...] date. 10/14/2023 Output by Drain (mL) 10/14/23 07 - 10/14/23 18510/14/23 190 - 10/15/23 0659 10/15/23 0700 - 10/15/23 1859 10/15/23 1900 - 10/16/23 0659 10/16/23 0700 - 10/16/23 0824 Requested LDAs do not have output data documented. Assessment and Plan: 73-year-old male with left hydroureter due to obstructing stone s/p L PCN placement on 08/16. -Continue to flush 10 mL normal saline every 8 hours. -Continue to monitor drainage output. R RELATIONS SPECIALIST * Hayden Youngblood MD - 10/16/2023 6:46 [...] For susceptibility results, refer to accession number [id number] on the urine culture from 10/11/23 MICROBIOLOGY [...] the appropriate orthopaedic surgery team, please use [email or web address] to page resident directly. If questions arise and the appropriate resident can't be reached or you are calling overnight, please contact [phone] ([facility]- 7:30 PM - 6:30 AM - Floor Resident) or [phone] (24 hours/day - Consult Resident) Cosigned by Hayder Vu MD at 10/16/2023 7:19 AM LABOR RELATIONS SPECIALIST R RELATIONS SPECIALIST R RELATIONS SPECIALIST * Marquise Lim MD - 10/15/2023 8:52 AM CST Daily Progress Note Division of Hospital Medicine Name: Hira Evans : 1950 Today's Date: October 15, 2023 Age: 73 y.o. male Admission: 10/12/2023 Bed: [id number] LOS: 2 days Subjective Chief complaint: back [...] it. Electronically signed by: Kendrick Hughes M.D. Kidney Complete Result Date: 10/14/2023 1. No [...] 80 minutes which was spent performing a ayab-no-orxm encounter and personally completing the provider-level activities documented in the note. This includes time spent prior to the visit and after the visit in direct care of the patient. This time does not include time spent in any separately reportable services. Marquise Lim MD R RELATIONS SPECIALIST * Ana Alfaro MD - 10/15/2023 7:20 [...] For susceptibility results, refer to accession number [id number] on the urine culture from 10/11/23 Exam: Left PCN site c/d/i. Assessment and Plan: 73-year old man with partially obstructing left ureteral stone post left PCN placement in 10/14/2023. Continue to flush 10 mL normal saline every 8 hours. Continue to monitor drainage output. R RELATIONS SPECIALIST * Hayden Youngblood MD - 10/15/2023 7:07 [...] 5/5 in BUE deltoid, biceps, triceps, WE/WF, ticker maintainer Sensation Left lower extremity: SILT L2 to [...] For susceptibility results, refer to accession number [id number] on the urine culture from 10/11/23 MICROBIOLOGY [...] the appropriate orthopaedic surgery team, please use [email or web address] to page resident directly. If questions arise and the appropriate resident can't be reached or you are calling overnight, please contact [phone] ([facility]- 7:30 PM - 6:30 AM - Floor Resident) or [phone] (24 hours/day - Consult Resident) Cosigned by Hayder Vu MD at 10/15/2023 8:54 AM LABOR RELATIONS SPECIALIST R RELATIONS SPECIALIST R RELATIONS SPECIALIST Associated attestation - Hayder Vu Jr., MD - 10/15/2023 8:54 AM LABOR RELATIONS SPECIALIST Attending Attestation I have seen and examined [...] of Mr. Evans. Hayder Vu Jr., MD Head Of Drama Department of Orthopaedic Surgery Division of Spine Surgery [facility] [place], [place] Laundry Pricing Clerk done by [employer]; therefore, variances and inaccuracies may occur. * Kasey Dahl MD - 10/14/2023 8:55 AM CST Orthopaedic Spine Service Progress Note Admit Date: 10/12/2023 Hospital Day: 1 Horace/Logan Dx: L4-L5 radiculopathy, UTI Relevant PMHx: HTN, [...] For susceptibility results, refer to accession number [id number] on the urine culture from 10/11/23 MICROBIOLOGY [...] the appropriate orthopaedic surgery team, please use [email or web address] to page resident directly. If questions arise and the appropriate resident can't be reached or you are calling overnight, please contact [phone] ([facility] 7:30 PM - 6:30 AM - Floor Resident) or [phone] (24 hours/day - Consult Resident) Cosigned by Hayder Vu MD at 10/15/2023 9:21 AM LABOR RELATIONS SPECIALIST R RELATIONS SPECIALIST R RELATIONS SPECIALIST R RELATIONS SPECIALIST Associated attestation - Hayder Vu Jr., MD - 10/15/2023 9:21 AM LABOR RELATIONS SPECIALIST I agree with the resident's note with [...] Age: 73 y.o. male Admission: 10/12/2023 Bed: [id number] LOS: 1 days Subjective Chief complaint: fever+chills [...] 70 minutes which was spent performing a ldrd-fg-zgpq encounter and personally completing the provider-level activities documented in the note. This includes time spent prior to the visit and after the visit in direct care of the patient. This time does not include time spent in any separately reportable services. Marquise Lim MD R RELATIONS SPECIALIST * Marquise Lim MD - 10/13/2023 7:43 AM CST Daily Progress Note Division of Hospital Medicine Name: Hira Evans : 1950 Today's Date: October 13, 2023 Age: 73 y.o. male Admission: 10/12/2023 Bed: [id number] LOS: 0 days Subjective Chief complaint: Sepsis [...] report and agrees with it. Electronically signed by:Mich Cabrera M.D. Assessment/Plan UTI (urinary tract infection) [...] : / Supplementary Attestation Marquise Lim MD R RELATIONS SPECIALIST documented in this encounter H&P Notes * [...] 1 tablet (10 mg total) by mouth breaker operator before breakfast cholecalciferol (VITAMIN D-3) 5,000 unit capsule Take 1 capsule (5,000 Units total) by mouth every morning coenzyme Q10 100 mg capsule Take 1 capsule (100 mg total) by mouth breaker operator before breakfast DILT-XR 240 mg 24 hr capsule Take 1 capsule (240 mg total) by mouth 2 (two) times a day 0 fish,bora,flax oils-om3,6,9no1 400-400-400 mg capsule Take 1 tablet by mouth breaker operator before breakfast irbesartan (AVAPRO) 300 mg [...] - Postop ppx as above TDLA: PIV [place] Harris Restraints: soft limb DVT prophylaxis: n/a; therapeutic heparin gtt for PEs Chichi Reyes MD 10/23/23 10:16 PM Cosigned by Wilder Arceo Jr., MD at 10/24/2023 5:52 AM LABOR RELATIONS SPECIALIST R RELATIONS SPECIALIST R RELATIONS SPECIALIST Associated attestation - Wilder Arceo Jr., MD - 10/24/2023 5:52 AM LABOR RELATIONS SPECIALIST Critical Care Time: I have spent 75 [...] for OR today from a medical standpoint. R RELATIONS SPECIALIST R RELATIONS SPECIALIST Source Note - Severo Merlos MD - 10/13/2023 5:00 AM LABOR RELATIONS SPECIALIST History and Physical Division of [facility] Medicine Name: Hira Evans : 1950 Today's Date: October 13, 2023 Age: 73 y.o. male Admit Date: 10/12/2023 Bed: [id number] LOS: 0 days Subjective Hira Evans is [...] 1 tablet (10 mg total) by mouth breaker operator before breakfast cholecalciferol (VITAMIN D-3) 5,000 unit capsule Take 1 capsule (5,000 Units total) by mouth every morning coenzyme Q10 100 mg capsule Take 1 capsule (100 mg total) by mouth breaker operator before breakfast DILT-XR 240 mg 24 hr capsule Take 1 capsule (240 mg total) by mouth 2 (two) times a day fish,bora,flax oils-om3,6,9no1 400-400-400 mg capsule Take 1 tablet by mouth breaker operator before breakfast irbesartan (AVAPRO) 300 mg [...] 60 minutes which was spent performing a mbqa-ht-ysxx encounter and personally completing the provider-level activities documented in the note. This includes time spent prior to the visit and after the visit in direct care of the patient. This time does not include time spent in any separately reportable services. Severo Merlos MD R RELATIONS SPECIALIST * Gabriel Bennett MD - 10/18/2023 9:06 AM CST I have reviewed the H&P, examined the patient, and endorse the findings as written. Plan of Care : Based on the above findings, I consider Hira Evans to be an acceptable risk for : Procedure(s): CYSTOSCOPY PYELOGRAM - RETROGRADE LITHOTRIPSY - LASER URETEROSCOPY R RELATIONS SPECIALIST Source Note - Fredrick Mcneil MD - 10/12/2023 10:45 PM LABOR RELATIONS SPECIALIST Images from the original note were not [...] to concerning symptoms, he was transferred to [facility] ED for further workup. Patient's reports [...] [IV Piggyback:20] Out: - Physical Exam: Vitals: 12/08/192410/12/23192910/12/23199910/12/232029 BP: 136/81 143/81 131/83 143/83 Pulse: 88 [...] or concerns, please page Urology through the inseam trimming machine operator. Vero Tolentino MD 10/12/2023 R RELATIONS SPECIALIST R RELATIONS SPECIALIST R RELATIONS SPECIALIST * Severo Merlos MD - 10/13/2023 5:00 AM CST History and Physical Division of Hospital Medicine Name: Hira Evans : 1950 Today's Date: October 13, 2023 Age: 73 y.o. male Admit Date: 10/12/2023 Bed: [id number] LOS: 0 days Subjective Hira Evans is [...] 1 tablet (10 mg total) by mouth breaker operator before breakfast cholecalciferol (VITAMIN D-3) 5,000 unit capsule Take 1 capsule (5,000 Units total) by mouth every morning coenzyme Q10 100 mg capsule Take 1 capsule (100 mg total) by mouth breaker operator before breakfast DILT-XR 240 mg 24 hr capsule Take 1 capsule (240 mg total) by mouth 2 (two) times a day fish,bora,flax oils-om3,6,9no1 400-400-400 mg capsule Take 1 tablet by mouth breaker operator before breakfast irbesartan (AVAPRO) 300 mg [...] 60 minutes which was spent performing a uhtg-iu-oczb encounter and personally completing the provider-level activities documented in the note. This includes time spent prior to the visit and after the visit in direct care of the patient. This time does not include time spent in any separately reportable services. Severo Merlos MD R RELATIONS SPECIALIST documented in this encounter Procedure Notes * Luana Brady PROOF TECHNICIAN - 10/25/2023 6:45 PM CSTAssociated Order(s): Critical [...] other practitioners on this day of service. R RELATIONS SPECIALIST * Wilder Arceo Jr., MD - 10/24/2023 [...] hemorrhage, Acute pain/acute postoperative pain and Seizure Fgo-CG-Mhaxngdij mycardial infarction (Non-STEMI) and Cardiac arrest Hypo- [...] spent time documenting in the medical record R RELATIONS SPECIALIST * Wilder Arceo Jr., MD - 10/23/2023 [...] spent time documenting in the medical record R RELATIONS SPECIALIST documented in this encounter Consult Notes * Yumiko Rome MD - 10/28/2023 9:48 AM CSTAssociated Order(s): IP CONSULT TO NEUROSURGERY Neurosurgery Consultation Patient: Hira Evans CSN: [id number] : 1950 Admission date: 10/12/2023 Length of [...] open L4-5 posterior spinal fusion (TLIF from [facility], laminectomy autograft and allograft). Postprocedure, in [...] 10/23, which demonstrated findings concerning for bilateral frontalsubdural hemorrhages. He also underwent at MRI brain on 10/25 which redemonstrated these findings. He did undergo a CT chest PE protocol on 10/23 which demonstrated acute pulmonary emboli involving the distal right and left main pulmonary arteries extending into all bilateral lobar and multiple bila teral segmental pulmonary arteries. He had initially been started on a heparin drip, and once he was therapeutic was transitioned to therapeutic Lovenox. Neurosurgery was [...] His , Neelima, can be reached at [phone] Family history: Reviewed and noncontributory. Physical Examination: [...] discussed with the chief resident and attending metal fabrication supervisor. The patient was evaluated within 30 minutes of consultation Yumiko Rome MD Cosigned by Jeremy Mojica MD at 10/30/2023 3:48 PM LABOR RELATIONS SPECIALIST R RELATIONS SPECIALIST R RELATIONS SPECIALIST R RELATIONS SPECIALIST Associated attestation - Jeremy Mojica MD - 10/30/2023 3:48 PM LABOR RELATIONS SPECIALIST I have seen and examined the patient [...] 73 y.o. male Admit Date: 10/12/2023 Bed: [id number] LOS: 13 days Subjective HPI 73 year [...] 1 tablet (10 mg total) by mouth breaker operator before breakfast cholecalciferol (VITAMIN D-3) 5,000 unit capsule Take 1 capsule (5,000 Units total) by mouth every morning coenzyme Q10 100 mg capsule Take 1 capsule (100 mg total) by mouth breaker operator before breakfast DILT-XR 240 mg 24 hr capsule Take 1 capsule (240 mg total) by mouth 2 (two) times a day fish,bora,flax oils-om3,6,9no1 400-400-400 mg capsule Take 1 tablet by mouth breaker operator before breakfast irbesartan (AVAPRO) 300 mg [...] Medicine Consults will sign off. Please call [phone] for further questions. Viry Patterson MD Cosigned by Ryan London MD at 10/26/2023 5:20 PM LABOR RELATIONS SPECIALIST R RELATIONS SPECIALIST R RELATIONS SPECIALIST Associated attestation - Ryan London MD - 10/26/2023 5:20 PM LABOR RELATIONS SPECIALIST Attending Documentation I have seen and examined [...] mg/mL injection - ADS Override Pull multivit nelakecg-rgsj-MB-calcium (THERA-M) tablet 1 tablet 1 tablet oral Daily pantoprazole DR (PROTONIX) extended release tablet 40 mg 40 mg oral Daily senna-docusate (PERICOLACE) 8.6-50 mg per tablet 2 tablet 2 tablet oral BID sodium chloride 0.9% flush 0.5-20 mL 0.5-20 mL intra-catheter Q8H CAMYM sodium chloride 0.9% flush 0.5-20 mL 0.5-20 [...] Labs Lab Units 10/24/23 0020 10/23/23 2303 10/23/23 2239 10/23/23 2207 10/23/23 2152 WBC K/cumm 22.9* 26.7* -- -- 23.8* HEMOGLOBIN, POC g/dL -- -- 9.2* < > -- HEMOGLOBIN g/dL 9.0* 9.0* -- -- 9.8* HEMATOCRIT % 25.4* 27.3* -- -- 32.0* HEMATOCRIT POC % -- -- 28.0* < > -- PLATELETS K/cumm 366 418* -- -- 458* < > = values in this interval not displayed. 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 Thank you for this consult. Neurology Consult Call Back: [phone] (senior phone). Please do nothesitate to contact us with any questions or concerns, and specify that this consult was staffed with consult team A. Zaheer Bennett MD, PHD Neurology Resident, PGY-2 10/24/2023 1:15 AM Cosigned by Steve Funk MD PhD at 10/24/2023 10:51 PM LABOR RELATIONS SPECIALIST R RELATIONS SPECIALIST R RELATIONS SPECIALIST R RELATIONS SPECIALIST R RELATIONS SPECIALIST Associated attestation - Steve Funk MD PhD - 10/24/2023 10:51 PM LABOR RELATIONS SPECIALIST I have seen and examined the patient [...] to concerning symptoms, he was transferred to [facility] ED for further workup. Patient's reports [...] or concerns, please page Urology through the inseam trimming machine operator. Vero Tolentino MD 10/12/2023 R RELATIONS SPECIALIST R RELATIONS SPECIALIST R RELATIONS SPECIALIST * Hayden Youngblood MD - 10/12/2023 7:22 [...] by mouth 2 (two) times a day 06/08/19ProFidelia samuels MD cephalexin (KEFLEX) 500 mg capsule Take 1 capsule (500 mg total) by mouth daily as needed (30 minutes prior to dental appt) When pt has procedures gets pre antibiotic r/t history knee replacements 10/09/22 Fidelia Perdue MD cetirizine (ZyrTEC) 10 mg tablet Take 1 tablet (10 mg total) by mouth breaker operator before breakfast Fidelia Perdue MD cholecalciferol (VITAMIN D-3) 5,000 unit capsule Take 1 capsule (5,000 Units total) by mouth every morning Fidelia Perdue MD coenzyme Q10 100 mg capsule Take 1 capsule (100 mg total) by mouth breaker operator before breakfast Fidelia Perdue MD DILT-XR 240 mg 24 hr capsule Take 1 capsule (240 mg total) by mouth 2 (two) times a day 05/12/19 Fidelia Perdue MD fish,bora,flax oils-om3,6,9no1 400-400-400 mg capsule Take 1 tablet by mouth breaker operator before breakfast Fidelia Perdue MD irbesartan (AVAPRO) 300 mg tablet Take 1 tablet (300 mg total) by mouth every morning 08/10/21 Fidelia Perdue MD Mounarie 10 mg/0.5 mL pen injector Inject 10 [...] (two) times a day as needed (Pain) ProviderFidelia MD omeprazole (PriLOSEC) 20 mg capsule Take 1 capsule (20 mg total) by mouth every morning Provider, MD Fidelia No Known Allergies Social History Tobacco Use [...] extension 5/5 5/5 Wrist flexion 5/5 5/5 Commercial Energy Rater 5/5 5/5 Interosseous of hand 5/5 5/5 [...] M.D., Ph.D. Department of Orthopaedic Surgery, PGY-2 [facility] Please use [employer] to page/call the appropriate Orthopaedic Surgery Team/Resident if questions or concerns. Normal business hours: If you know the resident's name on the appropriate orthopaedic surgery team,please use the Directory Search at [employer] to page resident directly. If questions arise and the appropriate resident can't be reached or you are calling overnight, please contact [phone] ([place]- 7:30 PM - 6:30 AM - Floor Resident) or [phone] (24 hours/day - Consult Resident) Cosigned by Hayder Vu MD at 10/14/2023 10:41 PM LABOR RELATIONS SPECIALIST R RELATIONS SPECIALIST R RELATIONS SPECIALIST documented in this encounter Nursing Notes * Sherice Wilcox RN - 10/24/2023 1:21 AM CST Fredrick MACKEY [place] [address] in anticipation of admission to our unit.Post op, patient went to ICU. AN brought bag of patient belongings to current room 4401. R RELATIONS SPECIALIST * Nolvia Gonzales RN - 10/23/2023 10:20 [...] Anesthesia at bedside tobring patient to ICU. R RELATIONS SPECIALIST * Fredrick Sheffield RN - 10/23/2023 7:04 PM CST Patient belongings (blanket, jacket, shoes, mirror, shirt, pajama pants) brought to unit 17915, where patient is transferring. Entire room searched for belongings, [place] [address]. R RELATIONS SPECIALIST * Frieda Cai RN - 10/18/2023 6:14 PM CST Patient went to surgery today and got a stent place, the catheter was changed during surgery. No drainage or leakage around the harris cath noted. R RELATIONS SPECIALIST * Ad Parikh RN - 10/16/2023 3:01 PM CST Assumed care for patient at 1500. This Rn agrees with previous RN's assessment. Patient A&ox4 and resting in bed. Will continue to monitor. R RELATIONS SPECIALIST * Adia Poole RN - 10/15/2023 7:44 [...] needs, and inagreement with bedside shift report. R RELATIONS SPECIALIST documented in this encounter ED Notes * Justice Vivas RN - 10/12/2023 6:25 PM CST Bed: ED1-14 Expected date: Expected time: Means of arrival: Car Comments: Justice Vivas RN 10/12/23 4867 R RELATIONS SPECIALIST * Amol Hargrove MD - 10/12/2023 6:22 [...] E coli. Patient was sent to the [facility] ED at the instruction of Dr. [...] of Care ED Course as of 10/12/23 2742 Time: 10/12 1840 Comment: Attending physician assessment [...] Rafael Cowan MD at 10/14/2023 12:05 AM LABOR RELATIONS SPECIALIST R RELATIONS SPECIALIST R RELATIONS SPECIALIST Associated attestation - Rafael Cowan MD - 10/14/2023 12:05 AM LABOR RELATIONS SPECIALIST I have seen and examined the patient [...] spinal surgery on Sunday. Reports malodorous urine. R RELATIONS SPECIALIST documented in this encounter Miscellaneous Notes * Provider Query - Hayder Vu MD - 10/30/2023 4:07 PM LABOR RELATIONS SPECIALIST Greetings Dr. Vu Please clarify if sepsis [...] the patient???s medical record. Sincerely, Boaz Harris [facility] Information Management R RELATIONS SPECIALIST * Provider Query - Hayder Vu MD - 10/30/2023 4:07 PM LABOR RELATIONS SPECIALIST Greetings Dr. Vu, Both respiratory failure and [...] the patient???s medical record. Sincerely, Boaz Harris [facility] Information Management R RELATIONS SPECIALIST * Plan of Care - Nathalie Herrera RN - 10/30/2023 2:38 PM CST Residential ([facility]) Home Health unable to accept due to insurance. Referrals sent to remaining home health agencies that serve patient's zip code: [facility]---unable to accept due to [facility]ing limitations [facility] open [facility]---unable to accept due to staffing limitations [facility]---unable to accept due to insurance. [facility]--unable to accept due to staffing limitations [facility]--unable to accept due to insurance. At this time, all home health agency options have been exhausted. Unable to secure home health therapy. Called patient's spouse Cynda to update. No further case management needs identified at this time R RELATIONS SPECIALIST R RELATIONS SPECIALIST R RELATIONS SPECIALIST R RELATIONS SPECIALIST * Plan of Care - Matilda Gonzales [...] Declined PRN pain med for trip home. R RELATIONS SPECIALIST * Plan of Care - Nathalie Herrera RN - 10/30/2023 1:21 PM CST [facility] ([facility]) Home Health has accepted patient pending [...] is unable to accept. Will contact patient's [facility] at [phone] if and when home health is secured. R RELATIONS SPECIALIST * Plan of Care - Nathalie Herrera RN - 10/30/2023 9:29 AM CST [facility] unable to accept. R RELATIONS SPECIALIST * Plan of Care - Suzanne Mendoza [...] health care needs will improve Outcome: Progressing R RELATIONS SPECIALIST * Plan of Deny - Matilda Gonzales [...] up. EPC used for sacral chaffing. Several metal fabrication supervisor residents notified regarding drain which accidentally came out during care. R RELATIONS SPECIALIST * Plan of Care - Suzanne Mendoza [...] Goal: Pain level will decrease Outcome: Progressing R RELATIONS SPECIALIST * Plan of Care - Erick Melchor [...] 1610 by Erick Melchor RN Outcome: Progressing R RELATIONS SPECIALIST * Plan of Care - Ritu Marin [...] pain meds. VS and drain output documented. R RELATIONS SPECIALIST * Significant Event - Viry Patterson MD [...] Medicine Consults will sign off. Please call [phone] for further questions. Viry Patterson MD PGY3 Internal Medicine R RELATIONS SPECIALIST * Assessment & Plan Note - Viry Patterson MD - 10/26/2023 5:11 PM LABOR RELATIONS SPECIALIST Associated Problem(s): Pulmonary embolism (HCC) Patient with new PE on CT PE 10/23. Tolerating heparin gtt. Likely provoked in setting of recent surgery. - Patient will need at least 3 months of anticoagulation, and can follow up with PCP for consideration of discontinuation - If no other surgical interventions planned at this time, can transition to therapeutic Lovenox vsEliquis per primary team. R RELATIONS SPECIALIST * Plan of Care - Luana Savage RN - 10/26/2023 2:49 PM CST Per Medical Chart/Rounds/IDR: Per IDR rounds with Huc, Under Cutting Machine Operator, Charge Nurse, and MD, the patient is [...] assistance, please check the treatment team in [facility] for the assigned case specialist or contact the weekend Case Management phone R RELATIONS SPECIALIST * Plan of Care - Harvey Horn [...] 2.5L via nasal cannula. Repositioned for comfort. R RELATIONS SPECIALIST R RELATIONS SPECIALIST * Significant Event - Tia Nolan NP - 10/25/2023 8:13 PM LABOR RELATIONS SPECIALIST CHUGG-OUT (SICU to OU/Floor Transfer) SICU MD [...] Ruano of the ortho service. QUESTIONS? Call [phone] (3700 Blue 2). 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 Please call the neurology consult phone at [phone] (Senior) with questions. James Silva MD Neurology resident PGY-3 R RELATIONS SPECIALIST * Plan of Care - Tamia Holman RN - 10/25/2023 10:41 AM CST Goals: Clinical Goals for the Shift: VSS, pending MRI, pain control, continue heparin drip, PM labs Summary: Plans for the day, pain control, VSS, labs/monitor hepain gtt, MRI pending. R RELATIONS SPECIALIST * Plan of Care - Edwige Porras [...] and injury in home environment Outcome: Defer R RELATIONS SPECIALIST * Initial Assessments - Jacqueline Walker MSW - 10/24/2023 12:27 PM CST Social Work Assessment Clinical Dx: Ureteral colic Past Medical History: Date of last inpatient admission: Previous admit date: N/A Number of inpatient admissions in past year: 1 Reason for Current Hospitalization (Pt/Caregiver Stated): back pain that turned into much more (10/24/23 1207) Patient Information: Information Obtained From: Patient Marital Status: Does Pt have Legal Guardian, Surrogate Decision Maker or Healthcare Agent? 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 Phan stated that they have a good support system. Do you have a Adventism Preference or Affiliation?: No Are there any Adventism Practices that are important to maintain while [...] More than three times a week Attends Adventism Services: Never Active Member of Clubs or [...] concerns for her at this time. (10/24/23 3237) Risk to Self and Others: Risk to [...] including surrogate decision makers, durable power of corporate attorney, and advanced directives. Patient has a POA on file, dated 2007, that spouse, Phan, affirmed to be current. POA lists: Agent: Phan Evans; 1st Alternate: Kaiser Nathan, brother; 2nd Alternate: [...] CM following for discharge planning. GEN Medina, FACILITY MAINTENANCE SUPERVISOR R RELATIONS SPECIALIST * Significant Event - Nasir Manzanares MD - 10/23/2023 10:14 PM LABOR RELATIONS SPECIALIST At the end of the OR case, [...] Hayder Vu MD at 10/23/2023 11:31 PM LABOR RELATIONS SPECIALIST R RELATIONS SPECIALIST R RELATIONS SPECIALIST Associated attestation - Hayder Vu Jr., MD - 10/23/2023 11:31 PM LABOR RELATIONS SPECIALIST Upon transfer to PACU, patient was noted [...] to follow closely. Hayder Vu Jr., MD Head Of Drama Department of Orthopaedic Surgery Division of Spine Surgery [facility] [employer] [facility] [place], [place] * Op Note - Hayder Vu MD - 10/23/2023 5:14 PM CST Operative Report Surgeon Hayder Vu MD Deblocker(s) Nasir Manzanares MD Anesthesia General endotracheal. Preoperative [...] of the L5 spinous process. A lamina arboriculture instructor was placed between the remainder of the [...] placed under fluoroscopic guidance. A Globus Sable [id number] 7-14mm 15 Deg lordo tic cage was [...] obstruction. The decompression was confirmed with a [place] elevator which was able to be passed [...] Implant Name Type Inv. Item Serial No. Head Mva Reactor Operator Lot No. LRB No. Used Action [employer] Crushed Chip Frozen Graft 30ml Bone Cancellous [id number] - [id number] [employer] CrushedChip Frozen Graft 30ml Bone Cancellous [id number] [employer] [id number] N/A 1 Implanted [employer] (Inspect Manager) Allograft Bone Putty 2.5CC 700-025 - [id number] [employer] (Inspect Manager) Allograft Bone Putty2.5CC 700-025 [employer] SARL [id number] N/A 1 Implanted [employer] Creo Od7.5 Mm L55 Mm Thread Polyaxial Spine Screw Bone Titanium 5146.1757 - [id number] [employer] Creo Od7.5 Mm L55 Mm Thread Polyaxial Spine Screw Bone Titanium 5146.1757 [employer] N/A 1 Implanted [employer] Creo Od7.5 Mm L50 Mm Thread Polyaxial Spine Screw Bone Titanium 5146.1752 - [id number] [employer] Creo Od7.5 Mm L50 Mm Thread Polyaxial Spine Screw Bone Titanium 5146.1752 [employer] N/A 3 Implanted [employer] Creo Thread Spinal Cap Locking Nonsterile 1119.0010 - [id number] [employer] Creo Thread Spinal Cap Locking Nonsterile 1119.0010 [employer] N/A 4 Implanted [employer] Implant Spinal Sable [id number] 7-14mm 15 Deg 1172.2121S - [id number] [employer] Implant Spinal Sable [id number] 7-14mm 15 Deg 1172.2121S [employer] N/A 1 Implanted [employer] Creo 5.5mm 45mm Curve Daniel Spinal Titanium 1119.7045 - [id number] [employer] Creo 5.5mm 45mm Curve Daniel Spinal Titanium 1119.7045 [employer] N/A 2 Implanted Specimens None. Counts Correct. Estimated Blood Loss 150 mL. Total IV Fluids 1500 mL. Complications None. Condition on Discharge from OR Stable. Hayder Vu Jr., MD Head Of Drama Department of Orthopaedic Surgery Division of Spine Surgery [facility] [place], [place] Operative Report dictated by Hayder Vu MD on 10/26/23 using Fluency Direct. Transcriptionvariances may occur. R RELATIONS SPECIALIST R RELATIONS SPECIALIST R RELATIONS SPECIALIST * Brief Op Note - Nasir Manzanares MD - 10/23/2023 5:14 PM CST Operative Progress Note Surgical Team: Surgeon(s) and Role: * Hayder Vu MD - Primary * Nasir Manzanares MD - Resident - Assisting Anesthesiologist: Ann Salazar MD MUSHROOM GROWING SUPERVISOR: Deisy Snyder CRNA Mobility Specialist: Alice Vaughn MD Backpackers Manager: Yeni Walker RN; Rena Michelle RN Scrub Relief: Sergio-Keltonur, Rad, ST Scrub: Teo Stiles, Travel Agency Manager: Belen Valdez [place] FLOAT: Oneyda Foley NP [...] Implant Name Type Inv. Item Serial No. Head Mva Reactor Operator Lot No. LRB No. Used Action [employer] Crushed Chip Frozen Graft 30ml Bone Cancellous [id number] - [id number] [employer] CrushedChip Frozen Graft 30ml Bone Cancellous [id number] [employer] [id number] N/A 1 Implanted [employer] Allograft Bone Putty 2.5CC 700-025 - [id number] [employer] Allograft Bone Putty2.5CC 700-025 Cer[employer] Inc [id number] N/A 1 Implanted [employer] Creo Od7.5 Mm L55 Mm Thread Polyaxial Spine Screw Bone Titanium 5146.1757 - [id number] [employer] Creo Od7.5 Mm L55 Mm Thread Polyaxial Spine Screw Bone Titanium 5146.1757 [employer] N/A 1 Implanted [employer] Creo Od7.5 Mm L50 Mm Thread Polyaxial Spine Screw Bone Titanium 5146.1752 - [id number] [employer] Creo Od7.5 Mm L50 Mm Thread Polyaxial Spine Screw Bone Titanium 5146.1752 [employer] N/A 3 Implanted [employer] Creo Thread Spinal Cap Locking Nonsterile 1119.0010 - [id number] [employer] Creo Thread Spinal Cap Locking Nonsterile 1119.0010 [employer] N/A 4 Implanted [employer] Implant Spinal Sable [id number] 7-14mm 15 Deg 1172.2121S - [id number] [employer] Implant Spinal Sable [id number] 7-14mm 15 Deg 1172.2121S [employer] N/A 1 Implanted [employer] Creo 5.5mm 45mm Curve Daniel Spinal Titanium 1119.7045 - [id number] [employer] Creo 5.5mm 45mm Curve Daniel [...] Hayder Vu MD at 10/26/2023 12:57 PM LABOR RELATIONS SPECIALIST R RELATIONS SPECIALIST R RELATIONS SPECIALIST * Plan of Care - Stefany Crook RN - 10/23/2023 12:06 AM CST Problem: Safety: Goal: Will remain free from falls Outcome: Progressing Goals: Clinical Goals for the Shift: VSS, pain management, safety and comfort Summary: R RELATIONS SPECIALIST * Plan of Care - Lisa Rudolph [...] Goal: Pain level will decrease Outcome: Progressing R RELATIONS SPECIALIST * Plan of Care - Lana Turcios [...] VSS, pain management, safety and comfort Summary: R RELATIONS SPECIALIST * Plan of Care - Harmony Norman [...] Goal: Pain level will decrease Outcome: Progressing R RELATIONS SPECIALIST * Plan of Care - Johnnie Flores [...] with VS WNL, pain free, and safe. R RELATIONS SPECIALIST * Plan of Care - Brandyn Cain [...] Shift: VS WNL, pain control and safety. R RELATIONS SPECIALIST * Plan of Care - Johnnie Flores [...] pain was under control with prn medication. R RELATIONS SPECIALIST * Consults, Subsequent - Vero Tolentino MD - 10/19/2023 10:01 AM LABOR RELATIONS SPECIALIST Images from the original note were not [...] or concerns, please page Urology through the inseam trimming machine operator. Vero Tolentino MD 10/19/2023 Cosigned by Fredrick Mcneil MD at 10/19/2023 10:25 AM LABOR RELATIONS SPECIALIST R RELATIONS SPECIALIST R RELATIONS SPECIALIST * Plan of Care - Brandyn Cain [...] Goal: Pain level will decrease Outcome: Ongoing R RELATIONS SPECIALIST * Plan of Care - Frieda Cai [...] unmanageable or unbearable will improve Outcome: Progressing R RELATIONS SPECIALIST * Plan of Care - Torey Mckenna RN - 10/18/2023 3:26 PM CST Per Medical Chart/Rounds/DCAM: IDR ADD: TBD Plan & referrals made/in place: [facility] with [facility] [place] [place]. Patient went to OR with urology [...] Patient and/or family are agreeable with plan. gallery manager will continue to follow and assist with discharge planning as needed. If any further discharge needs arise, please contact the covering case specialist. R RELATIONS SPECIALIST * Consults, Subsequent - Vero Tolentino MD - 10/18/2023 3:15 PM LABOR RELATIONS SPECIALIST Images from the original note were not [...] or concerns, please page Urology through the inseam trimming machine operator. Vero Tolentino MD 10/18/2023 Cosigned by Gabriel Bennett MD at 10/18/2023 6:54 PM LABOR RELATIONS SPECIALIST R RELATIONS SPECIALIST R RELATIONS SPECIALIST R RELATIONS SPECIALIST Associated attestation - Gabriel Bennett MD - 10/18/2023 6:54 PM LABOR RELATIONS SPECIALIST I have seen and examined the patient [...] to get PET scan done [facility] on [facility]. R RELATIONS SPECIALIST * Plan of Care - Rosi Fernandes MD - 10/18/2023 11:19 AM LABOR RELATIONS SPECIALIST Mr. Evans is a 73 yo male [...] from 6:00 to 18:00 (Sunday-Sunday), please call [phone].If you want to contact Urology consults after hours (18:00 to 6:00) and over the weekend, please call the inseam trimming machine operator. Cosigned by Gabriel Bennett MD at 10/18/2023 3:59 PM LABOR RELATIONS SPECIALIST R RELATIONS SPECIALIST R RELATIONS SPECIALIST * Op Note - Gabriel Bennett MD - 10/18/2023 8:45 AM CST OPERATIVE REPORT SURGEON Gabriel Bennett M.D. PEDIATRIC OCCUPATIONAL THERAPIST Vero Tolentino MD ANESTHESIA General. PREOPERATIVE DIAGNOSIS [...] ensure proper patient and proper procedure. A 22-Armenian rigid cystoscope was introduced into the urethra [...] present and participated in the entire procedure. R RELATIONS SPECIALIST * Plan of Care - Christal García [...] Goal: Pain level will decrease Outcome: Progressing R RELATIONS SPECIALIST * Plan of Care - Lisa Rudolph [...] unmanageable or unbearable will improve Outcome: Progressing R RELATIONS SPECIALIST * Consults, Subsequent - Vero Tolentino MD - 10/17/2023 11:41 AM LABOR RELATIONS SPECIALIST Images from the original note were not included. Urology Consult Note Subjective Chief Complaint: C/f left obstructing ureteral stone with UTI Requesting provider: Dr. Hargrove Interval History: - POD2 PCN placement with IR - IRVINEO, AF, VSS - No complaints this AM [...] or concerns, please page Urology through the inseam trimming machine operator. Vero Tolentino MD 10/17/2023 Cosigned by Maris Montilla MD at 10/18/2023 9:04 AM LABOR RELATIONS SPECIALIST R RELATIONS SPECIALIST R RELATIONS SPECIALIST * Plan of Care - Stacy Tim [...] keep pt free from injury and comfortable R RELATIONS SPECIALIST * Plan of Care - Rebecca Lozano [...] Activity: Goal: Mobility will improve Outcome: Progressing R RELATIONS SPECIALIST * Plan of Care - Dionne Palafox [...] medications given withpartial relief. Vital signs stable. R RELATIONS SPECIALIST * Plan of Care - Lana Turcios [...] q 8 hours, pain management, encourage activity R RELATIONS SPECIALIST * Assessment & Plan Note - Jimenez Henao MD - 10/15/2023 9:06 AM LABOR RELATIONS SPECIALIST Associated Problem(s): Left perinephric collection, 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 Likely post procedure complication. Urology following - CT urogram on 10/16 notes presence of L perinephric hematoma - Continue to trend white count, renal function and fever curve R RELATIONS SPECIALIST R RELATIONS SPECIALIST R RELATIONS SPECIALIST * Consults, Subsequent - Vero Tolentino MD - 10/15/2023 6:38 AM LABOR RELATIONS SPECIALIST Images from the original note were not [...] was obtained. Prior to beginning the procedure, [place] Protocol was performed to confirm the patient's [...] or concerns, please page Urology through the inseam trimming machine operator. Vero Tolentino MD 10/14/2023 Cosigned by Fredrick Mcneil MD at 10/17/2023 5:10 PM LABOR RELATIONS SPECIALIST R RELATIONS SPECIALIST R RELATIONS SPECIALIST R RELATIONS SPECIALIST * Plan of Care - Lyn Tolliver [...] Provided comfort and safety. Nephrostomy dressing changed. R RELATIONS SPECIALIST * Plan of Care - Sue Allison [...] pressure high, MD notified. Patient resting comfortably. R RELATIONS SPECIALIST * Post-Procedure Note - Ana Alfaro MD - 10/14/2023 1:46 PM CST Radiology Brief Post Procedure Note Attending: Dr. Hughes Loss Prevention Leader: Dr. Alfaro Sedation/Anesthesia: Min Sedation Pre-Op/Pre-Procedure Diagnosis: Hydronephrosis Post-Op/Post-Procedure Diagnosis: Mild hydronephrosis with blood clots in the collecting system andmoderate hydroureter Procedure Performed: Right percutaneous PCN placement Procedure Findings: Successful PCN placement Complications: None Estimated Blood Loss: < 30 ml Specimens: 10 ml aspirate sent to the lab Condition: Stable Full report to follow. R RELATIONS SPECIALIST * Pre-Procedure Note - Ana Alfaro MD [...] (premix) 2,000 mg, 2,000 mg, intravenous, Q24H [facility], Severo Merlos MD, 2,000 mg at 10/14/23 [...] chloride 0.9% infusion, 75 mL/hr, intravenous, Continuous, Freilich, Alice Mckeon MD, Last Rate: 75 mL/hr at 10/14/23 [...] been discussed with the patient and/or their new accounts banking representative. All questions answered and they agree to proceed. R RELATIONS SPECIALIST R RELATIONS SPECIALIST * Plan of Care - Lyn Tolliver [...] Observed Strict intake and output. Monitored hematuria. R RELATIONS SPECIALIST * Consults, Subsequent - Vero Tolentino MD - 10/13/2023 5:57 PM LABOR RELATIONS SPECIALIST Images from the original note were not [...] or concerns, please page Urology through the inseam trimming machine operator. Vero Tolentino MD 10/13/2023 Cosigned by Fredrick Mcneil MD at 10/13/2023 11:37 PM LABOR RELATIONS SPECIALIST R RELATIONS SPECIALIST R RELATIONS SPECIALIST R RELATIONS SPECIALIST * Initial Assessments - Torey Mckenna RN - 10/13/2023 2:42 PM LABOR RELATIONS SPECIALIST CM Initial Assessment Interview Note Information Obtained From: Patient (10/13/231439) in the room Admission Source: from ED Impression: 73 yo male admitted for UTI. Plan Includes: to establish a safe discharge plan Primary Source of Transportation: Does the patient need discharge transport arranged?: (unknown, as DC location unknown) (10/13/231439) Health Insurance Coverage: [facility] Medicare Prescription Coverage: yes Pharmacy: [facility] [address] [place] [id number] [id number] [facility] [id number] Primary Care Provider: Rl Medina DO Prior [...] Collaboration with patient, MD, direct care nurse, Under Cutting Machine Operator, and other members of the health care team to assure needed interventions completed. 2. Return patient to optimal level of self-care post discharge. 3. [facility]uc will follow for Discharge Planning - interventions [...] with the aftercare plan. Torey Mckenna RN R RELATIONS SPECIALIST * Hospital Course - Jimenez Henao MD - 10/13/2023 2:42 PM LABOR RELATIONS SPECIALIST Hira Evans is a 73 y.o. male [...] ortho, his surgery as postponed to 10/23. R RELATIONS SPECIALIST R RELATIONS SPECIALIST R RELATIONS SPECIALIST R RELATIONS SPECIALIST R RELATIONS SPECIALIST R RELATIONS SPECIALIST R RELATIONS SPECIALIST R RELATIONS SPECIALIST R RELATIONS SPECIALIST R RELATIONS SPECIALIST R RELATIONS SPECIALIST * Plan of Care - Js Cardenas [...] medicine. Pt currently NPO. Family at bedside. R RELATIONS SPECIALIST * Post-Procedure Note - Ana Alfaro MD - 10/13/2023 9:46 AM CST Radiology Brief Post Procedure Note Attending: Dr. Mar Loss Prevention Leader: Dr. Alfaro Sedation/Anesthesia: Min Sedation Pre-Op/Pre-Procedure Diagnosis: Hydroureteronephrosis with an obstructing stone Post-Op/Post-Procedure Diagnosis: Same Procedure Performed: Attempted PCN placement Procedure Findings: Non-dilated calyces with contrast washing down the ureter. Complications: None Estimated Blood Loss: None Specimens: None Condition: Stable Full report to follow. R RELATIONS SPECIALIST * Pre-Procedure Note - Ana Alfaro MD [...] MD, Last Rate: 100 mL/hr at 10/13/23 0647, 100 mL/hr at 10/13/23646 Physical exam: Physical [...] been discussed with the patient and/or their new accounts banking representative. All questions answered and they agree to proceed. R RELATIONS SPECIALIST * Assessment & Plan Note - Severo Merlos MD - 10/13/2023 5:39 AM LABOR RELATIONS SPECIALIST Associated Problem(s): Prostate cancer (HCC) S/p postprostatectomy R RELATIONS SPECIALIST * Assessment & Plan Note - Marquise Lim MD - 10/13/2023 5:36 AM LABOR RELATIONS SPECIALIST Associated Problem(s): HTN (hypertension) Hold home irbesartan Restart diltiazem xl R RELATIONS SPECIALIST R RELATIONS SPECIALIST R RELATIONS SPECIALIST * Assessment & Plan Note - Jimenez Henao MD - 10/13/2023 5:36 AM LABOR RELATIONS SPECIALIST Associated Problem(s): Hydronephrosis with urinary obstruction due [...] though OK to de-escalate to oral regimen R RELATIONS SPECIALIST R RELATIONS SPECIALIST R RELATIONS SPECIALIST R RELATIONS SPECIALIST R RELATIONS SPECIALIST R RELATIONS SPECIALIST R RELATIONS SPECIALIST R RELATIONS SPECIALIST R RELATIONS SPECIALIST R RELATIONS SPECIALIST R RELATIONS SPECIALIST R RELATIONS SPECIALIST R RELATIONS SPECIALIST R RELATIONS SPECIALIST R RELATIONS SPECIALIST * Assessment & Plan Note - Jimenez Henao MD - 10/13/2023 5:36 AM LABOR RELATIONS SPECIALIST Associated Problem(s): Lumbar radiculopathy He has been [...] every 4 hours Surgery rescheduled to 10/23/23 R RELATIONS SPECIALIST R RELATIONS SPECIALIST R RELATIONS SPECIALIST R RELATIONS SPECIALIST R RELATIONS SPECIALIST R RELATIONS SPECIALIST * Assessment & Plan Note - Jimenez Henao MD - 10/13/2023 5:35 AM LABOR RELATIONS SPECIALIST Associated Problem(s): UTI (urinary tract infection) - Complicated UTI with the presence of left ureteral stone and Pyelitis - urine culture grew E-coli which is pansusceptible. - Discussion with urology and orthopedic surgery: continue Keflex 500 mg q6hr as it appears patientwill stay in-house until OR on 10/22-10/23 -Antibiotics as above. R RELATIONS SPECIALIST R RELATIONS SPECIALIST R RELATIONS SPECIALIST R RELATIONS SPECIALIST R RELATIONS SPECIALIST R RELATIONS SPECIALIST * Plan of Care - Silvana Man [...] new admit orders/call light,bed controls,meal times,televisions controls. R RELATIONS SPECIALIST * Perioperative Nursing Note - Philip Ha RN - 10/13/2023 3:41 AM LABOR RELATIONS SPECIALIST Pt is being signed out by Anesthesia. R RELATIONS SPECIALIST * Op Note - Fredrick Mcneil MD [...] Consult IR for left nephrostomy tube placement R RELATIONS SPECIALIST * ED Re-evaluation Note - Genaro Chavira MD - 10/12/2023 11:05 PM LABOR RELATIONS SPECIALIST ED Re-evaluation TRANSITION OF CARE: I, Genaro [...] ED Course as of 10/12/23 2320 Time: 10/120 Comment: Attending physician assessment and [...] MD Kurtz, Camden Emmett, MD Resident 10/12/232318 R RELATIONS SPECIALIST documented in this encounter Plan of Treatment Pending Results Name Type Priority Associated Diagnoses Date /Time Erythrocyte sedimentation rate Lab STAT 10/12/2023 7:50 PM LABOR RELATIONS SPECIALIST CRP (acute phase) Lab STAT 023 7:50 PM LABOR RELATIONS SPECIALIST Basic metabolic panel Lab Routine 7:06 PM LABOR RELATIONS SPECIALIST Phosphorus Lab Routine 10/29/2023 9:5 3 PM LABOR RELATIONS SPECIALIST Magnesium Lab Routine 10/29/2023 9:5 3 PM LABOR RELATIONS SPECIALIST Scheduled Orders Name Type Priority Associated Diagnoses [...] 3 VIEWS Pending Discharge 10/30/2023 9:49 AM LABOR RELATIONS SPECIALIST EGFR Routine 10/29/2023 9:53 PM LABOR RELATIONS SPECIALIST DIFFERENTIAL AUTO Routine 10/29/2023 9:5 3 PM LABOR RELATIONS SPECIALIST CBC WITH AUTO DIFFERENTIAL Routine 10/29/2023 9:53 PM LABOR RELATIONS SPECIALIST PHOSPHORUS Routine 10/29/2023 9:53 PM LABOR RELATIONS SPECIALIST MAGNESIUM Routine 10/29/2023 9:53 PM LABOR RELATIONS SPECIALIST BASIC METABOLIC PANEL Routine 10/29/2023 9:53 PM LABOR RELATIONS SPECIALIST EGFR Routine 10/29/2023 4:40 AM LABOR RELATIONS SPECIALIST DIFFERENTIAL AUTO Routine 10/29/2023 4:4 0 AM LABOR RELATIONS SPECIALIST CBC WITH AUTO DIFFERENTIAL Routine 10/29/2023 4:40 AM LABOR RELATIONS SPECIALIST TYPE AND SCREEN Timed 10/29/2023 4:40 AM LABOR RELATIONS SPECIALIST PHOSPHORUS Routine 10/29/2023 4:40 AM LABOR RELATIONS SPECIALIST MAGNESIUM Routine 10/29/2023 4:40 AM LABOR RELATIONS SPECIALIST BASIC METABOLIC PANEL Routine 10/29/2023 4:[address] HEAD WO CONTRAST IP Routine 10/28/2023 5 :58 PM LABOR RELATIONS SPECIALIST EGFR Routine 10/27/2023 11:32 PM LABOR RELATIONS SPECIALIST DIFFERENTIAL AUTO Routine 10/27/2023 11: 32 PM LABOR RELATIONS SPECIALIST CBC WITH AUTO DIFFERENTIAL Routine 10/27/2023 11:32 PM LABOR RELATIONS SPECIALIST BASIC METABOLIC PANEL Routine 10/27/2023 11:32 PM LABOR RELATIONS SPECIALIST CBC WITHOUT DIFFERENTIAL Timed 10/27/2023 4:37 AM LABOR RELATIONS SPECIALIST PHOSPHORUS Routine 10/27/2023 4:37 AM LABOR RELATIONS SPECIALIST MAGNESIUM Routine 10/27/2023 4:37 AM LABOR RELATIONS SPECIALIST EGFR Routine 10/26/2023 8:07 PM LABOR RELATIONS SPECIALIST DIFFERENTIAL AUTO Routine 10/26/2023 8:0 7 PM LABOR RELATIONS SPECIALIST CBC WITH AUTO DIFFERENTIAL Routine 10/26/2023 8:07 PM LABOR RELATIONS SPECIALIST BASIC METABOLIC PANEL Routine 10/26/2023 8:07 PM LABOR RELATIONS SPECIALIST EGFR STAT 10/26/2023 5:28 PM LABOR RELATIONS SPECIALIST APTT STAT 10/26/2023 5:28 PM LABOR RELATIONS SPECIALIST PROTIME-INR STAT 10/26/2023 5:28 PM LABOR RELATIONS SPECIALIST CBC WITHOUT DIFFERENTIAL STAT 10/26/2023 5:28 PM LABOR RELATIONS SPECIALIST CREATININE STAT 10/26/2023 5:28 PM LABOR RELATIONS SPECIALIST DIFFERENTIAL AUTO Timed 10/26/2023 2:4 3 PM LABOR RELATIONS SPECIALIST CBC WITH AUTO DIFFERENTIAL Timed 10/26/2023 2:43 PM LABOR RELATIONS SPECIALIST APTT STAT 10/26/2023 11:09 AM LABOR RELATIONS SPECIALIST TRANSFUSE RED BLOOD CELLS Timed 10/26/2023 10:02 AM LABOR RELATIONS SPECIALIST PREPARE RBC Timed 10/26/2023 4:46 AM LABOR RELATIONS SPECIALIST TRANSFUSE RED BLOOD CELLS Timed 10/26/2023 3:55 AM LABOR RELATIONS SPECIALIST PREPARE RBC Timed 10/26/2023 3:03 AM LABOR RELATIONS SPECIALIST APTT STAT 10/26/2023 2:21 AM LABOR RELATIONS SPECIALIST CBC WITHOUT DIFFERENTIAL Timed 10/26/2023 2:21 AM LABOR RELATIONS SPECIALIST TYPE AND SCREEN Timed 10/26/2023 2:21 AM LABOR RELATIONS SPECIALIST PHOSPHORUS Routine 10/26/2023 2:21 AM LABOR RELATIONS SPECIALIST MAGNESIUM Routine 10/26/2023 2:21 AM LABOR RELATIONS SPECIALIST POTASSIUM, WHOLE BLOOD STAT 10/25/2023 10:11 PM LABOR RELATIONS SPECIALIST CRITICAL CARE Routine 10/25/2023 9:09 PM LABOR RELATIONS SPECIALIST Cardiac arrest (HCC) EGFR Routine 10/25/2023 8:41 PM LABOR RELATIONS SPECIALIST DIFFERENTIAL AUTO Routine 10/25/2023 8:4 1 PM LABOR RELATIONS SPECIALIST CBC WITH AUTO DIFFERENTIAL Routine 10/25/2023 8:41 PM LABOR RELATIONS SPECIALIST BASIC METABOLIC PANEL Routine 10/25/2023 8:41 PM LABOR RELATIONS SPECIALIST POCT GLUCOSE DEVICE Routine 10/25/2023 7 :22 PM LABOR RELATIONS SPECIALIST CRITICAL CARE Routine 10/25/2023 6:45 PM LABOR RELATIONS SPECIALIST Seizures, generalized convulsive (HCC) APTT STAT 10/25/2023 4:59 PM LABOR RELATIONS SPECIALIST POCT GLUCOSE DEVICE Routine 10/25/2023 3 :09 PM LABOR RELATIONS SPECIALIST MRI BRAIN EPILEPSY W WO CONTRAST IP Routine 10/25/2023 1:55 PM LABOR RELATIONS SPECIALIST POCT GLUCOSE DEVICE Routine 10/25/2023 1 0:57 AM LABOR RELATIONS SPECIALIST DIFFERENTIAL AUTO Timed 10/25/2023 10: 14 AM LABOR RELATIONS SPECIALIST CBC WITH AUTO DIFFERENTIAL Timed 10/25/2023 10:14 AM LABOR RELATIONS SPECIALIST APTT STAT 10/25/2023 10:14 AM LABOR RELATIONS SPECIALIST XR CHEST 1 VIEW ED Urgent/IP Urgent 10/25/2023 9:52 AM LABOR RELATIONS SPECIALIST POCT GLUCOSE DEVICE Routine 10/25/2023 6:58 AM LABOR RELATIONS SPECIALIST POCT GLUCOSE DEVICE Routine 10/25/2023 3 :44 AM LABOR RELATIONS SPECIALIST APTT STAT 10/25/2023 3:14 AM LABOR RELATIONS SPECIALIST POCT GLUCOSE DEVICE Routine 10/24/2023 1 1:45 PM LABOR RELATIONS SPECIALIST CRITICAL CARE Routine 10/24/2023 11:00 PM LABOR RELATIONS SPECIALIST Cardiac arrest (HCC) CALCIUM, IONIZED Routine 10/24/2023 9:11 PM LABOR RELATIONS SPECIALIST POCT GLUCOSE DEVICE Routine 10/24/2023 7 :42 PM LABOR RELATIONS SPECIALIST EGFR Routine 10/24/2023 7:06 PM LABOR RELATIONS SPECIALIST DIFFERENTIAL AUTO Routine 10/24/2023 7:0 6 PM LABOR RELATIONS SPECIALIST CBC WITH AUTO DIFFERENTIAL Routine 10/24/2023 7:06 PM LABOR RELATIONS SPECIALIST APTT Routine 10/24/2023 7:06 PM LABOR RELATIONS SPECIALIST PROTIME-INR Routine 10/24/2023 7:06 PM LABOR RELATIONS SPECIALIST PHOSPHORUS Routine 10/24/2023 7:06 PM LABOR RELATIONS SPECIALIST MAGNESIUM Routine 10/24/2023 7:06 PM LABOR RELATIONS SPECIALIST BASIC METABOLIC PANEL Routine 10/24/2023 7:06 PM LABOR RELATIONS SPECIALIST POCT GLUCOSE DEVICE Routine 10/24/2023 2 :58 PM LABOR RELATIONS SPECIALIST APTT STAT 10/24/2023 12:18 PM LABOR RELATIONS SPECIALIST TRANSTHORACIC ECHO (TTE) COMPLETE W DOPPLER/CF W CONTRAST STAT 10/24/2023 11:43 AM LABOR RELATIONS SPECIALIST POCT GLUCOSE DEVICE Routine 10/24/2023 1 1:04 AM LABOR RELATIONS SPECIALIST TROPONIN I HIGH-SENSITIVITY 6-HOUR Timed 10/24/2023 9:39 AM LABOR RELATIONS SPECIALIST TROPONIN I HIGH-SENSITIVITY Routine 10/24/2023 8:32 AM LABOR RELATIONS SPECIALIST POCT GLUCOSE DEVICE Routine 10/24/2023 7 :31 AM LABOR RELATIONS SPECIALIST CRITICAL CARE Routine 10/24/2023 6:48 AM LABOR RELATIONS SPECIALIST Cardiac arrest (HCC) TROPONIN I HIGH-SENSITIVITY 2-HOUR Timed 10/24/2023 5:38 AM LABOR RELATIONS SPECIALIST APTT STAT 10/24/2023 5:38 AM LABOR RELATIONS SPECIALIST EEG Routine 10/24/2023 5:02 AM LABOR RELATIONS SPECIALIST ECG 12-LEAD STAT 10/24/2023 3:44 AM LABOR RELATIONS SPECIALIST TROPONIN I HIGH-SENSITIVITY SERIES (BASELINE, 2HR, 4HR, 6HR) Routine 10/24/2023 3:38 AM LABOR RELATIONS SPECIALIST LACTATE Routine 10/24/2023 3:38 AM LABOR RELATIONS SPECIALIST CRITICAL RESULT CALLBACK CARDIO CHEM Routine 10/24/2023 3:38 AM LABOR RELATIONS SPECIALIST POCT GLUCOSE DEVICE Routine 10/24/2023 3 :25 AM LABOR RELATIONS SPECIALIST HIV 1/2 ANTIBODY PLUS P24 ANTIGEN Routine 10/24/2023 12:20 AM LABOR RELATIONS SPECIALIST POCT GLUCOSE DEVICE Routine 10/24/2023 1 2:20 AM LABOR RELATIONS SPECIALIST APTT STAT 10/24/2023 12:20 AM LABOR RELATIONS SPECIALIST PROTIME-INR STAT 10/24/2023 12:20 AM LABOR RELATIONS SPECIALIST CBC WITHOUT DIFFERENTIAL STAT 10/24/2023 12:[address] CHEST PE ABDOMEN PELVIS W CONTRAST ED Urgent/IP Urgent 10/23/2023 11:[address] HEAD WO CONTRAST Critical/Life-Th reatening 10/23/2023 11:48 PM LABOR RELATIONS SPECIALIST CRITICAL CARE Routine 10/23/2023 11:47 PM LABOR RELATIONS SPECIALIST Cardiac arrest (HCC) DIFFERENTIAL AUTO Routine 10/23/2023 11: 03 PM LABOR RELATIONS SPECIALIST CALCIUM, IONIZED STAT 10/23/2023 11:0 3 PM LABOR RELATIONS SPECIALIST CBC WITH AUTO DIFFERENTIAL Routine 10/23/2023 11:03 PM LABOR RELATIONS SPECIALIST MANUAL DIFFERENTIAL Routine 10/23/2023 1 1:03 PM LABOR RELATIONS SPECIALIST BLOOD GAS, ARTERIAL STAT 10/23/2023 1 1:03 PM LABOR RELATIONS SPECIALIST EGFR STAT 10/23/2023 11:02 PM LABOR RELATIONS SPECIALIST APTT STAT 10/23/2023 11:02 PM LABOR RELATIONS SPECIALIST PROTIME-INR STAT 10/23/2023 11:02 PM LABOR RELATIONS SPECIALIST PHOSPHORUS STAT 10/23/2023 11:02 PM LABOR RELATIONS SPECIALIST MAGNESIUM STAT 10/23/2023 11:02 PM LABOR RELATIONS SPECIALIST LIPID PANEL STAT 10/23/2023 11:02 PM LABOR RELATIONS SPECIALIST COMPREHENSIVE METABOLIC PANEL STAT 10/23/2023 11:02 PM LABOR RELATIONS SPECIALIST POC BLOOD GAS AND CHEMISTRIES, ARTERIAL Routine 10/23/2023 10:39 PM LABOR RELATIONS SPECIALIST POC BLOOD GAS AND CHEMISTRIES, ARTERIAL Routine 10/23/2023 10:07 PM LABOR RELATIONS SPECIALIST EGFR STAT 10/23/2023 9:52 PM LABOR RELATIONS SPECIALIST CBC WITHOUT DIFFERENTIAL STAT 10/23/2023 9:52 PM LABOR RELATIONS SPECIALIST BASIC METABOLIC PANEL STAT 10/23/2023 9:52 PM LABOR RELATIONS SPECIALIST POC BLOOD GAS AND CHEMISTRIES, VENOUS Routine 10/23/2023 9:50 PM LABOR RELATIONS SPECIALIST FL FLUOROSCOPY < 1 HOUR IP Routine 10/23/2023 8:45 PM LABOR RELATIONS SPECIALIST EGFR Routine 10/22/2023 9:39 PM LABOR RELATIONS SPECIALIST DIFFERENTIAL AUTO Routine 10/22/2023 9:3 9 PM LABOR RELATIONS SPECIALIST CBC WITH AUTO DIFFERENTIAL Routine 10/22/2023 9:39 PM LABOR RELATIONS SPECIALIST PROTIME-INR Routine 10/22/2023 9:39 PM LABOR RELATIONS SPECIALIST TYPE AND SCREEN Timed 10/22/2023 9:39 PM LABOR RELATIONS SPECIALIST BASIC METABOLIC PANEL Routine 10/22/2023 9:39 PM LABOR RELATIONS SPECIALIST XR CHEST 1 VIEW IP Routine 10/22/2023 6:24 AM LABOR RELATIONS SPECIALIST EGFR Routine 10/21/2023 10:52 PM LABOR RELATIONS SPECIALIST DIFFERENTIAL AUTO Routine 10/21/2023 10: 52 PM LABOR RELATIONS SPECIALIST CBC WITH AUTO DIFFERENTIAL Routine 10/21/2023 10:52 PM LABOR RELATIONS SPECIALIST BASIC METABOLIC PANEL Routine 10/21/2023 10:52 PM LABOR RELATIONS SPECIALIST EGFR Routine 10/20/2023 9:38 PM LABOR RELATIONS SPECIALIST DIFFERENTIAL AUTO Routine 10/20/2023 9:3 8 PM LABOR RELATIONS SPECIALIST CBC WITH AUTO DIFFERENTIAL Routine 10/20/2023 9:38 PM LABOR RELATIONS SPECIALIST BASIC METABOLIC PANEL Routine 10/20/2023 9:38 PM LABOR RELATIONS SPECIALIST EGFR Routine 10/19/2023 9:11 PM LABOR RELATIONS SPECIALIST DIFFERENTIAL AUTO Routine 10/19/2023 9:1 1 PM LABOR RELATIONS SPECIALIST CBC WITH AUTO DIFFERENTIAL Routine 10/19/2023 9:11 PM LABOR RELATIONS SPECIALIST BASIC METABOLIC PANEL Routine 10/19/2023 9:11 PM LABOR RELATIONS SPECIALIST EGFR Routine 10/18/2023 9:29 PM LABOR RELATIONS SPECIALIST DIFFERENTIAL AUTO Routine 10/18/2023 9:2 9 PM LABOR RELATIONS SPECIALIST CBC WITH AUTO DIFFERENTIAL Routine 10/18/2023 9:29 PM LABOR RELATIONS SPECIALIST BASIC METABOLIC PANEL Routine 10/18/2023 9:29 PM LABOR RELATIONS SPECIALIST DEXA AXIAL SKELETON BONE DENSITY 1 OR MORE SITES IP Routine 10/18/2023 12:45 PM LABOR RELATIONS SPECIALIST FL FLUOROSCOPY < 1 HOUR IP Routine 10/18/2023 11:27 AM LABOR RELATIONS SPECIALIST REMOVAL NEPHROSTOMY TUBE - FLOUROSCPY 10/18/2023 9:27 AM LABOR RELATIONS SPECIALIST Hydronephrosis with urinary obstruction due to renal calculus PLACEMENT PREOPERATIVE STENT - URETERAL 10/18/2023 9:27 AM LABOR RELATIONS SPECIALIST Hydronephrosis with urinary obstruction due to renal calculus URETEROSCOPY 10/18/2023 9:27 AM LABOR RELATIONS SPECIALIST Hydronephrosis with urinary obstruction due to renal calculus LITHOTRIPSY - LASER 10/18/2023 9 :27 AM LABOR RELATIONS SPECIALIST Hydronephrosis with urinary obstruction due to renal calculus PYELOGRAM - RETROGRADE 10/18/2023 9:27 AM LABOR RELATIONS SPECIALIST Hydronephrosis with urinary obstruction due to renal calculus CYSTOSCOPY 10/18/2023 9:27 AM LABOR RELATIONS SPECIALIST Hydronephrosis with urinary obstruction due to renal calculus EGFR Routine 10/17/2023 10:52 PM LABOR RELATIONS SPECIALIST DIFFERENTIAL AUTO Routine 10/17/2023 10: 52 PM LABOR RELATIONS SPECIALIST CBC WITH AUTO DIFFERENTIAL Routine 10/17/2023 10:52 PM LABOR RELATIONS SPECIALIST APTT Routine 10/17/2023 10:52 PM LABOR RELATIONS SPECIALIST PROTIME-INR Routine 10/17/2023 10:52 PM LABOR RELATIONS SPECIALIST BASIC METABOLIC PANEL Routine 10/17/2023 10:[address] UROGRAM IP Routine 10/16/2023 12:36 PM LABOR RELATIONS SPECIALIST PERCUTANEOUS NEPHROSTOMY PCN LEFT IP Routine 10/14/2023 1:38 PM LABOR RELATIONS SPECIALIST URINALYSIS AND REFLEX TO MICROSCOPIC AND CULTURE Routine 10/14/2023 1:35 PM LABOR RELATIONS SPECIALIST URINALYSIS, MICROSCOPIC ONLY Routine 10/14/2023 1:35 PM LABOR RELATIONS SPECIALIST URINE CULTURE Routine 10/14/2023 1:35 PM LABOR RELATIONS SPECIALIST US KIDNEY COMPLETE Timed 10/14/2023 7: 15 AM LABOR RELATIONS SPECIALIST EGFR Routine 10/14/2023 6:30 AM LABOR RELATIONS SPECIALIST DIFFERENTIAL AUTO Routine 10/14/2023 6:3 0 AM LABOR RELATIONS SPECIALIST CBC WITH AUTO DIFFERENTIAL Routine 10/14/2023 6:30 AM LABOR RELATIONS SPECIALIST COMPREHENSIVE METABOLIC PANEL Routine 10/14/2023 6:30 AM LABOR RELATIONS SPECIALIST BLOOD CULTURE Routine 10/13/2023 10:59 PM LABOR RELATIONS SPECIALIST BLOOD CULTURE Routine 10/13/2023 11:01 AM LABOR RELATIONS SPECIALIST FL FLUOROSCOPY < 1 HOUR ED Urgent/IP Urgent 10/13/2023 9:48 AM LABOR RELATIONS SPECIALIST EGFR Routine 10/13/2023 6:50 AM LABOR RELATIONS SPECIALIST DIFFERENTIAL AUTO Routine 10/13/2023 6:5 0 AM LABOR RELATIONS SPECIALIST CBC WITH AUTO DIFFERENTIAL Routine 10/13/2023 6:50 AM LABOR RELATIONS SPECIALIST COMPREHENSIVE METABOLIC PANEL Routine 10/13/2023 6:50 AM LABOR RELATIONS SPECIALIST FL FLUOROSCOPY < 1 HOUR IP Routine 10/13/2023 3:00 AM LABOR RELATIONS SPECIALIST MRI SPINE TOTAL COMPLETE W WO CONTRAST ED 10/12/2023 11:44 PM LABOR RELATIONS SPECIALIST BLOOD CULTURE STAT 10/12/2023 9:38 PM LABOR REL[address] CT CHEST ABDOMEN PELVIS W CONTRAST ED 10/12/2023 9:00 PM LABOR RELATIONS SPECIALIST LACTATE STAT 10/12/2023 7:50 PM LABOR RELATIONS SPECIALIST EGFR STAT 10/12/2023 7:50 PM LABOR RELATIONS SPECIALIST DIFFERENTIAL AUTO STAT 10/12/2023 7:5 0 PM LABOR RELATIONS SPECIALIST URINALYSIS AND REFLEX TO MICROSCOPIC AND CULTURE STAT 10/12/2023 7:50 PM LABOR RELATIONS SPECIALIST CBC WITH AUTO DIFFERENTIAL STAT 10/12/2023 7:50 PM LABOR RELATIONS SPECIALIST BLOOD CULTURE STAT 10/12/2023 7:50 PM LABOR RELATIONS SPECIALIST URINALYSIS, MICROSCOPIC ONLY STAT 10/12/2023 7:50 PM LABOR RELATIONS SPECIALIST ERYTHROCYTE SEDIMENTATION RATE STAT 10/12/2023 7:50 PM LABOR RELATIONS SPECIALIST URINE CULTURE STAT 10/12/2023 7:50 PM LABOR RELATIONS SPECIALIST CRP (ACUTE PHASE) STAT 10/12/2023 7:5 0 PM LABOR RELATIONS SPECIALIST BASIC METABOLIC PANEL STAT 10/12/2023 7:50 PM LABOR RELATIONS SPECIALIST documented in this encounter Results * XR Spine Lumbar 2 or 3 Views (10/30/2023 9:49 AM LABOR RELATIONS SPECIALIST) Anatomical Region Laterality Modality Spine N/A Computed Radiogr aphy 10/30/2023 10:1 9 AM LABOR RELATIONS SPECIALIST Impressions 10/30/2023 10:25 AM LABOR RELATIONS SPECIALIST 1. ??Posterior instrumented spinal fusion from L4 to L5 with combined interbody fusion. Dictated by: Tamia Rojas MD The radiology attending physician has personally reviewed this study, and had reviewed and/or edited this written report and agrees with it. Electronically signed by: Dmitry Navarro MD Narrative 10/30/2023 10:25 AM LABOR RELATIONS SPECIALIST EXAMINATION: XR SPINE LUMBAR 2 OR 3 [...] by: Dmitry Navarro MD us Rafael Rodriguez PROOF TECHNICIAN IMG XR PROCEDURES Final Resu lt * eGFR (10/29/2023 9:53 PM LABOR RELATIONS SPECIALIST) eGFR 85 >=60 mL/min/1. 73 m2 [facility] Comment: [...] last reviewed 2021. Blood 10/29/2023 9:53 PM LABOR RELATIONS SPECIALIST 10/29/2023 10:11 PM LABOR RELATIONS SPECIALIST us Tia Nolan NP LAB BLOOD ORDERABLES F inal Result [facility] Department [place] [address] * Magnesium (10/29/2023 9:53 PM LABOR RELATIONS SPECIALIST) Pathologist [facility] Magnesium 1.7 1.4 - 2.5 mg/dL [facility] Blood 10/29/2023 9:53 PM LABOR RELATIONS SPECIALIST 10/29/2023 10:11 PM LABOR RELATIONS SPECIALIST Hayder Vu Jr., MD LAB BLOOD ORDERABLE S Final Result [facility] Department [place] [address] * Phosphorus (10/29/2023 9:53 PM LABOR RELATIONS SPECIALIST) Pathologist [facility] Phosphorus, pl 2.6 2.3 - 4.5 mg/dL [facility] Blood 10/29/2023 9:53 PM LABOR RELATIONS SPECIALIST 10/29/2023 10:11 PM LABOR RELATIONS SPECIALIST Hayder Vu Jr., MD LAB BLOOD ORDERABLE S Final Result Performing Organization Address City/[facility] de Phone Number [facility] Department [place] [address] * Differential, auto (10/29/2023 9:53 PM LABOR RELATIONS SPECIALIST) [facility] Neutrophil abs 4.9 1.5 - 6.5 K/cumm [facility] Imm gran abs 0.1 0.0 - 0.1 K/cumm [facility] Lymphocyte abs 1.3 0.8 - 3.3 K/cumm [facility] Monocyte abs 0.7 0.2 - 0.8 K/cumm [facility] Eosinophil abs 0.2 0.0 - 0.5 K/cumm [facility] Basophil abs 0.0 0.0 - 0.1 K/cumm [facility] Neutrophil pct 68.7 % [facility] Comment: Interpretive Data Percent cell count reference ranges are not reported, since discordance with absolute values may lead to misinterpretation of CBC data. Current Interpretive Data was last revised on 2018. Imm gran pct 1.0 % [facility] Comment: Interpretive Data Percent cell count reference ranges are not reported, since discordance with absolute values may lead to misinterpretation of CBC data. Current Interpretive Data was last revised on 2018. Lymphocyte pct 18.3 % [facility] Comment: Interpretive Data Percent cell count reference ranges are not reported, since discordance with absolute values may lead to misinterpretation of CBC data. Current Interpretive Data was last revised on 2018. Monocyte pct 9.7 % [facility] Comment: Interpretive Data Percent cell count reference ranges are not reported, since discordance with absolute values may lead to misinterpretation of CBC data. Current Interpretive Data was last revised on 2018. Eosinophil pct 2.2 % [facility] Comment: Interpretive Data Percent cell count reference ranges are not reported, since discordance with absolute values may lead to misinterpretation of CBC data. Current Interpretive Data was last revised on 2018. Basophil pct 0.1 % [facility] Comment: Interpretive Data Percent cell count reference ranges are not reported, since discordance with absolute values may lead to misinterpretation of CBC data. Current Interpretive Data was last revised on 2018. Blood 10/29/2023 9:53 PM LABOR RELATIONS SPECIALIST 10/29/2023 10:11 PM LABOR RELATIONS SPECIALIST us Tia Nolan PROOF TECHNICIAN LAB BLOOD ORDERABLES F inal Result [facility] Department [place] [address] * (ABNORMAL) CBC with auto differential (10/29/2023 9:53 PM LABOR RELATIONS SPECIALIST) WBC 7.2 3.8 - 9.9 K/cumm [facility] Hgb 9.4(L) 13.0 - 17.5 g/dL [facility] Hct 28.0(L) 38.9 - 50.3 % [facility] Plt 313 150 - 400 K/cumm [facility] MPV 10.7 9.1 - 12.3 fL [facility] RBC 3.00(L) 4.30 - 5.80 M/cumm [facility] MCV 93.3 81.3 - 96.4 fL [facility] MCH 31.3 27.1 - 33.3 pg [facility] MCHC 33.6 32.3 - 35.7 g/dL [facility] RDW CV 13.7 11.1 - 14.9 % [facility] RDW SD 46.5 35.7 - 48.1 fL [facility] NRBC abs 0.00 0.00 - 0.01 K/cumm [facility] Blood 10/29/2023 9:53 PM LABOR RELATIONS SPECIALIST 10/29/2023 10:11 PM LABOR RELATIONS SPECIALIST us Tia Nolan PROOF TECHNICIAN LAB BLOOD ORDERABLES F inal Result [facility] Department [place] [address] * (ABNORMAL) Basic metabolic panel (10/29/2023 9:53 PM LABOR RELATIONS SPECIALIST) Pathologist [facility] Sodium 137 135 - 145 mmol/L [facility] Potassium, pl 3.7 3.3 - 4.9 mmol/L [facility] Chloride 103 97 - 110 mmol/L [facility] CO2 24 22 - 32 mmol/L [facility] Anion gap 10 2 - 15 mmol/L [facility] BUN 10 6 - 25 mg/dL [facility] Creatinine 0.95 0.80 - 1.30 mg/dL [facility] Glucose 108 70 - 199 mg/dL [facility] Comment: Interpretive Data Fasting glucose [...] 2022. Calcium 8.1(L) 8.5 - 10.3 mg/dL [facility] Blood 10/29/2023 9:53 PM LABOR RELATIONS SPECIALIST 10/29/2023 10:11 PM LABOR RELATIONS SPECIALIST Tia Nolan PROOF TECHNICIAN LAB BLOOD ORDERABLES F inal Result [facility] Department [place] [address] * eGFR (10/29/2023 4:40 AM LABOR RELATIONS SPECIALIST) eGFR >90 >=60 mL/min/1. 73 m2 [facility] Comment: Interpretive Data Reference Interval [...] last reviewed 2021. Blood 10/29/2023 4:40 AM LABOR RELATIONS SPECIALIST 10/29/2023 5:04 AM LABOR RELATIONS SPECIALIST us Tia Nolan NP LAB BLOOD ORDERABLES F inal Result [facility] Department [place] [address] * Differential, auto (10/29/2023 4:40 AM LABOR RELATIONS SPECIALIST) Neutrophil abs 3.6 1.5 - 6.5 K/cumm [facility] Imm gran abs 0.1 0.0 - 0.1 K/cumm [facility] Lymphocyte abs 1.0 0.8 - 3.3 K/cumm [facility] Monocyte abs 0.6 0.2 - 0.8 K/cumm [facility] Eosinophil abs 0.2 0.0 - 0.5 K/cumm [facility] Basophil abs 0.0 0.0 - 0.1 K/cumm [facility] Neutrophil pct 66.1 % [facility] Comment: Interpretive Data Percent cell count reference ranges are not reported, since discordance with absolute values may lead to misinterpretation of CBC data. Current Interpretive Data was last revised on 2018. Imm gran pct 1.1 % [facility] Comment: Interpretive Data Percent cell count reference ranges are not reported, since discordance with absolute values may lead to misinterpretation of CBC data. Current Interpretive Data was last revised on 2018. Lymphocyte pct 18.9 % [facility] Comment: Interpretive Data Percent cell count reference ranges are not reported, since discordance with absolute values may lead to misinterpretation of CBC data. Current Interpretive Data was last revised on 2018. Monocyte pct 10.4 % [facility] Comment: Interpretive Data Percent cell count reference ranges are not reported, since discordance with absolute values may lead to misinterpretation of CBC data. Current Interpretive Data was last revised on 2018. Eosinophil pct 3.1 % [facility] Comment: Interpretive Data Percent cell count reference ranges are not reported, since discordance with absolute values may lead to misinterpretation of CBC data. Current Interpretive Data was last revised on 2018. Basophil pct 0.4 % [facility] Comment: Interpretive Data Percent cell count reference ranges are not reported, since discordance with absolute values may lead to misinterpretation of CBC data. Current Interpretive Data was last revised on 2018. Blood 10/29/2023 4:40 AM LABOR RELATIONS SPECIALIST 10/29/2023 5:05 AM LABOR RELATIONS SPECIALIST Tia Nolan PROOF TECHNICIAN LAB BLOOD ORDERABLES F inal Result Performing Organization Address City/[facility] Co de Phone Number [facility] Department [place] [address] * Type and screen (10/29/2023 4:40 AM LABOR RELATIONS SPECIALIST) Pathologist [facility] Jigna, indirect Negative ABO Rh O Positive [facility] Blood 10/29/2023 4:40 AM LABOR RELATIONS SPECIALIST 10/29/2023 5:09 AM LABOR RELATIONS SPECIALIST Narrative [facility] - 10/29/2023 6:37 AM LABOR RELATIONS SPECIALIST Has the patient had Daratumumab or Isatuximab in the past 6 months?->Unknown Tia Nolan NP LAB BLOOD BANK TEST OR DERABLES Final Result Performing Organization Address [facility] de Phone Number [facility] [place] [address] * (ABNORMAL) CBC with auto differential (10/29/2023 4:40 AM LABOR RELATIONS SPECIALIST) Pathologist [facility] WBC 5.4 3.8 - 9.9 K/cumm [facility] Hgb 9.5(L) 13.0 - 17.5 g/dL [facility] Hct 27.9(L) 38.9 - 50.3 % [facility] Plt 295 150 - 400 K/cumm [facility] MPV 10.8 9.1 - 12.3 fL [facility] RBC 3.03(L) 4.30 - 5.80 M/cumm [facility] MCV 92.1 81.3 - 96.4 fL [facility] MCH 31.4 27.1 - 33.3 pg [facility] MCHC 34.1 32.3 - 35.7 g/dL [facility] RDW CV 13.6 11.1 - 14.9 % [facility] RDW SD 45.1 35.7 - 48.1 fL [facility] NRBC abs 0.00 0.00 - 0.01 K/cumm [facility] Blood 10/29/2023 4:40 AM LABOR RELATIONS SPECIALIST 10/29/2023 5:05 AM LABOR RELATIONS SPECIALIST Tia Nolan PROOF TECHNICIAN LAB BLOOD ORDERABLES F inal Result [facility] Department [place] [address] * (ABNORMAL) Basic metabolic panel (10/29/2023 4:40 AM LABOR RELATIONS SPECIALIST) Sodium 139 135 - 145 mmol/L [facility] Potassium, pl 3.5 3.3 - 4.9 mmol/L [facility] Chloride 104 97 - 110 mmol/L [facility] CO2 23 22 - 32 mmol/L [facility] Anion gap 12 2 - 15 mmol/L [facility] BUN 11 6 - 25 mg/dL [facility] Creatinine 0.88 0.80 - 1.30 mg/dL [facility] Glucose 112 70 - 199 mg/dL [facility] Comment: Interpretive Data Fasting glucose [...] 2022. Calcium 8.2(L) 8.5 - 10.3 mg/dL [facility] Blood 10/29/2023 4:40 AM LABOR RELATIONS SPECIALIST 10/29/2023 5:04 AM LABOR RELATIONS SPECIALIST Tia Nolan PROOF TECHNICIAN LAB BLOOD ORDERABLES F inal Result Performing Organization Address [facility] [place] [address] * Phosphorus (10/29/2023 4:40 AM LABOR RELATIONS SPECIALIST) Phosphorus, pl 2.7 2.3 - 4.5 mg/dL [facility] Blood 10/29/2023 4:40 AM LABOR RELATIONS SPECIALIST 10/29/2023 5:05 AM LABOR RELATIONS SPECIALIST Tia Nolan PROOF TECHNICIAN LAB BLOOD ORDERABLES F inal Result Performing Organization Address [facility] [place] [address] * Magnesium (10/29/2023 4:40 AM LABOR RELATIONS SPECIALIST) Magnesium 1.8 1.4 - 2.5 mg/dL [facility] Blood 10/29/2023 4:40 AM LABOR RELATIONS SPECIALIST 10/29/2023 5:05 AM LABOR RELATIONS SPECIALIST Tia Nolan PROOF TECHNICIAN LAB BLOOD ORDERABLES F inal Result Performing Organization Address [facility] de Phone Number [facility] [place] [address] * CT Head WO Contrast (10/28/2023 5:58 PM LABOR RELATIONS SPECIALIST) Anatomical Region Laterality Modality Head and Neck N/A Computed Tomogra phy 10/28/2023 8:46 PM LABOR RELATIONS SPECIALIST Impressions 10/29/2023 10:19 AM LABOR RELATIONS SPECIALIST 1. ??Thin bilateral subdural collections along the [...] Landen Perez M.D. Narrative 10/29/2023 10:19 AM LABOR RELATIONS SPECIALIST EXAMINATION: CT head without contrast HISTORY: Subdural [...] it. Electronically signed by: Landen Perez M.D. us Kasey Rutledge NP IMG CT PROCEDURES Final Result * eGFR (10/27/2023 11:32 PM LABOR RELATIONS SPECIALIST) Pathologist [facility] eGFR >90 >=60 mL/min/1. 73 m2 [facility] Comment: Interpretive Data Reference Interval [...] reviewed 2021. Blood 10/27/2023 11:3 2 PM LABOR RELATIONS SPECIALIST 10/28/2023 12:27 AM LABOR RELATIONS SPECIALIST Tia Nolan NP LAB BLOOD ORDERABLES F inal Result [facility] Department [place] [address] * Differential, auto (10/27/2023 11:32 PM LABOR RELATIONS SPECIALIST) Neutrophil abs 3.9 1.5 - 6.5 K/cumm [facility] Imm gran abs 0.1 0.0 - 0.1 K/cumm [facility] Lymphocyte abs 1.2 0.8 - 3.3 K/cumm [facility] Monocyte abs 0.6 0.2 - 0.8 K/cumm [facility] Eosinophil abs 0.2 0.0 - 0.5 K/cumm [facility] Basophil abs 0.0 0.0 - 0.1 K/cumm [facility] Neutrophil pct 65.9 % [facility] Comment: Interpretive Data Percent cell count reference ranges are not reported, since discordance with absolute values may lead to misinterpretation of CBC data. Current Interpretive Data was last revised on 2018. Imm gran pct 0.8 % [facility] Comment: Interpretive Data Percent cell count reference ranges are not reported, since discordance with absolute values may lead to misinterpretation of CBC data. Current Interpretive Data was last revised on 2018. Lymphocyte pct 20.3 % [facility] Comment: Interpretive Data Percent cell count reference ranges are not reported, since discordance with absolute values may lead to misinterpretation of CBC data. Current Interpretive Data was last revised on 2018. Monocyte pct 9.6 % [facility] Comment: Interpretive Data Percent cell count reference ranges are not reported, since discordance with absolute values may lead to misinterpretation of CBC data. Current Interpretive Data was last revised on 2018. Eosinophil pct 3.2 % [facility] Comment: Interpretive Data Percent cell count reference ranges are not reported, since discordance with absolute values may lead to misinterpretation of CBC data. Current Interpretive Data was last revised on 2018. Basophil pct 0.2 % [facility] Comment: Interpretive Data Percent cell count reference ranges are not reported, since discordance with absolute values may lead to misinterpretation of CBC data. Current Interpretive Data was last revised on 2018. Blood 10/27/2023 11:3 2 PM LABOR RELATIONS SPECIALIST 10/28/2023 12:26 AM LABOR RELATIONS SPECIALIST Tia Nolan PROOF TECHNICIAN LAB BLOOD ORDERABLES F inal Result Performing Organization Address [facility]/ZIP Co de Phone Number [facility] Department [place] [address] * (ABNORMAL) CBC with auto differential (10/27/2023 11:32 PM LABOR RELATIONS SPECIALIST) Pathologist [facility] WBC 6.0 3.8 - 9.9 K/cumm [facility] Hgb 8.6(L) 13.0 - 17.5 g/dL [facility] Hct 25.3(L) 38.9 - 50.3 % [facility] Plt 295 150 - 400 K/cumm [facility] MPV 11.2 9.1 - 12.3 fL [facility] RBC 2.78(L) 4.30 - 5.80 M/cumm [facility] MCV 91.0 81.3 - 96.4 fL [facility] MCH 30.9 27.1 - 33.3 pg [facility] MCHC 34.0 32.3 - 35.7 g/dL [facility] RDW CV 13.2 11.1 - 14.9 % [facility] RDW SD 44.2 35.7 - 48.1 fL [facility] NRBC abs 0.00 0.00 - 0.01 K/cumm [facility] Blood 10/27/2023 11:3 2 PM LABOR RELATIONS SPECIALIST 10/28/2023 12:26 AM LABOR RELATIONS SPECIALIST Tia Nolan PROOF TECHNICIAN LAB BLOOD ORDERABLES F inal Result Performing Organization Address City/[facility]/ZIP Co de Phone Number [facility] Department [place] [address] * (ABNORMAL) Basic metabolic panel (10/27/2023 11:32 PM LABOR RELATIONS SPECIALIST) Pathologist [facility] Sodium 135 135 - 145 mmol/L [facility] Potassium, pl 3.7 3.3 - 4.9 mmol/L [facility] Chloride 103 97 - 110 mmol/L [facility] CO2 26 22 - 32 mmol/L [facility] Anion gap 6 2 - 15 mmol/L [facility] BUN 11 6 - 25 mg/dL [facility] Creatinine 0.88 0.80 - 1.30 mg/dL [facility] Glucose 108 70 - 199 mg/dL [facility] Comment: Interpretive Data Fasting glucose [...] 2022. Calcium 8.0(L) 8.5 - 10.3 mg/dL [facility] Blood 10/27/2023 11:3 2 PM LABOR RELATIONS SPECIALIST 10/28/2023 12:27 AM LABOR RELATIONS SPECIALIST Tia Nolan NP LAB BLOOD ORDERABLES F inal Result Performing Organization Address [facility] Co de Phone Number [facility] [place] [address] * Phosphorus (10/27/2023 4:37 AM LABOR RELATIONS SPECIALIST) Phosphorus, pl 2.5 2.3 - 4.5 mg/dL [facility] Blood 10/27/2023 4:37 AM LABOR RELATIONS SPECIALIST 10/27/2023 4:59 AM LABOR RELATIONS SPECIALIST Tia Nolan NP LAB BLOOD ORDERABLES F inal Result Performing Organization Address [facility] Co de Phone Number [facility] Department [place] [address] * Magnesium (10/27/2023 4:37 AM LABOR RELATIONS SPECIALIST) Pathologist [facility] Magnesium 1.9 1.4 - 2.5 mg/dL [facility] Blood 10/27/2023 4:37 AM LABOR RELATIONS SPECIALIST 10/27/2023 4:59 AM LABOR RELATIONS SPECIALIST Tia Nolan NP LAB BLOOD ORDERABLES F inal Result Performing Organization Address City/State/[facility] Co de Phone Number [facility] Department [place] [address] * (ABNORMAL) CBC without differential (10/27/2023 4:37 AM LABOR RELATIONS SPECIALIST) [facility] WBC 7.1 3.8 - 9.9 K/cumm [facility] Hgb 9.1(L) 13.0 - 17.5 g/dL [facility] Hct 26.1(L) 38.9 - 50.3 % [facility] Plt 291 150 - 400 K/cumm [facility] MPV 11.0 9.1 - 12.3 fL [facility] RBC 2.93(L) 4.30 - 5.80 M/cumm [facility] MCV 89.1 81.3 - 96.4 fL [facility] MCH 31.1 27.1 - 33.3 pg [facility] MCHC 34.9 32.3 - 35.7 g/dL [facility] RDW CV 13.4 11.1 - 14.9 % [facility] RDW SD 43.7 35.7 - 48.1 fL [facility] NRBC abs 0.00 0.00 - 0.01 K/cumm [facility] Blood 10/27/2023 4:37 AM LABOR RELATIONS SPECIALIST 10/27/2023 5:07 AM LABOR RELATIONS SPECIALIST Narrative [facility] - 10/27/2023 5:17 AM LABOR RELATIONS SPECIALIST While on heparin infusion Tia Nolan NP LAB BLOOD ORDERABLES F inal Result [facility] Department [place] [address] * Transfuse RBC (10/26/2023 10:32 PM LABOR RELATIONS SPECIALIST) Blood Hayder Vu Jr., MD BLOOD TRANSFUSION O RDERABLES Final Result Performing Organization Address City/[facility] Co de Phone Number [facility] Department [place] [address] * Transfuse RBC: 1 Units (10/26/2023 10:32 PM LABOR RELATIONS SPECIALIST) Blood Hayder Vu Jr., MD BLOOD TRANSFUSION O RDERABLES Final Result * eGFR (10/26/2023 8:07 PM LABOR RELATIONS SPECIALIST) eGFR >90 >=60 mL/min/1. 73 m2 [facility] Comment: Interpretive Data Reference Interval [...] last reviewed 2021. Blood 10/26/2023 8:07 PM LABOR RELATIONS SPECIALIST 10/26/2023 9:01 PM LABOR RELATIONS SPECIALIST us Tia Nolan PROOF TECHNICIAN LAB BLOOD ORDERABLES F inal Result [facility] Department [place] [address] * (ABNORMAL) Differential, auto (10/26/2023 8:07 PM LABOR RELATIONS SPECIALIST) Neutrophil abs 6.7(H) 1.5 - 6.5 K/cumm [facility] Imm gran abs 0.1 0.0 - 0.1 K/cumm [facility] Lymphocyte abs 1.1 0.8 - 3.3 K/cumm [facility] Monocyte abs 0.7 0.2 - 0.8 K/cumm [facility] Eosinophil abs 0.1 0.0 - 0.5 K/cumm [facility] Basophil abs 0.0 0.0 - 0.1 K/cumm [facility] Neutrophil pct 77.6 % [facility] Comment: Interpretive Data Percent cell count reference ranges are not reported, since discordance with absolute values may lead to misinterpretation of CBC data. Current Interpretive Data was last revised on 2018. Imm gran pct 0.6 % [facility] Comment: Interpretive Data Percent cell count reference ranges are not reported, since discordance with absolute values may lead to misinterpretation of CBC data. Current Interpretive Data was last revised on 2018. Lymphocyte pct 12.5 % [facility] Comment: Interpretive Data Percent cell count reference ranges are not reported, since discordance with absolute values may lead to misinterpretation of CBC data. Current Interpretive Data was last revised on 2018. Monocyte pct 7.8 % [facility] Comment: Interpretive Data Percent cell count reference ranges are not reported, since discordance with absolute values may lead to misinterpretation of CBC data. Current Interpretive Data was last revised on 2018. Eosinophil pct 1.0 % [facility] [facility] Comment: Interpretive Data Percent cell count reference ranges are not reported, since discordance with absolute values may lead to misinterpretation of CBC data. Current Interpretive Data was last revised on 2018. Basophil pct 0.5 % [facility] Comment: Interpretive Data Percent cell count reference ranges are not reported, since discordance with absolute values may lead to misinterpretation of CBC data. Current Interpretive Data was last revised on 2018. Blood 10/26/2023 8:07 PM LABOR RELATIONS SPECIALIST 10/26/2023 9:00 PM LABOR RELATIONS SPECIALIST us Tia Nolan PROOF TECHNICIAN LAB BLOOD ORDERABLES F inal Result [facility] Department [place] [address] * (ABNORMAL) CBC with auto differential (10/26/2023 8:07 PM LABOR RELATIONS SPECIALIST) WBC 8.6 3.8 - 9.9 K/cumm [facility] Hgb 9.5(L) 13.0 - 17.5 g/dL [facility] Hct 27.6(L) 38.9 - 50.3 % [facility] Plt 313 150 - 400 K/cumm [facility] MPV 11.2 9.1 - 12.3 fL [facility] RBC 3.08(L) 4.30 - 5.80 M/cumm [facility] MCV 89.6 81.3 - 96.4 fL [facility] MCH 30.8 27.1 - 33.3 pg [facility] MCHC 34.4 32.3 - 35.7 g/dL [facility] RDW CV 13.3 11.1 - 14.9 % [facility] RDW SD 43.5 35.7 - 48.1 fL [facility] NRBC abs 0.00 0.00 - 0.01 K/cumm [facility] Blood 10/26/2023 8:07 PM LABOR RELATIONS SPECIALIST 10/26/2023 9:00 PM LABOR RELATIONS SPECIALIST Tia Nolan PROOF TECHNICIAN LAB BLOOD ORDERABLES F inal Result Performing Organization Address City/[facility]/ZIP Co de Phone Number [facility] Department [place] [address] * (ABNORMAL) Basic metabolic panel (10/26/2023 8:07 PM LABOR RELATIONS SPECIALIST) [facility] Sodium 137 135 - 145 mmol/L [facility] Potassium, pl 3.5 3.3 - 4.9 mmol/L [facility] Chloride 104 97 - 110 mmol/L [facility] CO2 26 22 - 32 mmol/L [facility] Anion gap 7 2 - 15 mmol/L [facility] BUN 11 6 - 25 mg/dL [facility] Creatinine 0.86 0.80 - 1.30 mg/dL [facility] Glucose 132 70 - 199 mg/dL [facility] Comment: Interpretive Data Fasting glucose [...] 2022. Calcium 8.2(L) 8.5 - 10.3 mg/dL [facility] Blood 10/26/2023 8:07 PM LABOR RELATIONS SPECIALIST 10/26/2023 9:01 PM LABOR RELATIONS SPECIALIST Tia Nolan NP LAB BLOOD ORDERABLES F inal Result Performing Organization Address [facility] Co de Phone Number [facility] Department [place] [address] * eGFR (10/26/2023 5:28 PM LABOR RELATIONS SPECIALIST) eGFR 90 >=60 mL/min/1. 73 m2 [facility] Comment: Interpretive Data Reference Interval [...] last reviewed 2021. Blood 10/26/2023 5:28 PM LABOR RELATIONS SPECIALIST 10/26/2023 6:00 PM LABOR RELATIONS SPECIALIST us Kasey Rutledge NP LAB BLOOD ORDERABLES Final Resu lt [facility] [place] [address] * Creatinine (10/26/2023 5:28 PM LABOR RELATIONS SPECIALIST) Creatinine 0.91 0.80 - 1.30 mg/dL [facility] Blood 10/26/2023 5:28 PM LABOR RELATIONS SPECIALIST 10/26/2023 6:00 PM LABOR RELATIONS SPECIALIST Narrative [facility] - 10/26/2023 6:31 PM LABOR RELATIONS SPECIALIST Baseline prior to enoxaparin initiation. Kasey Tangrita LAB BLOOD ORDERABLES Final Resu lt Performing Organization Address [facility] [place] [address] * (ABNORMAL) aPTT (10/26/2023 5:28 PM LABOR RELATIONS SPECIALIST) Pathologist [facility] aPTT 64(H) 28 - 38 sec [facility] Comment: Interpretive Data Heparin therapeutic range: 66.0 - 100.0 seconds. Range based on correlation with therapeutic heparin activity range of 0.3 - 0.7 Units/mL. Current interpretive data was last revised on 2023. Blood 10/26/2023 5:28 PM LABOR RELATIONS SPECIALIST 10/26/2023 6:09 PM LABOR RELATIONS SPECIALIST Narrative [facility] - 10/26/2023 6:18 PM LABOR RELATIONS SPECIALIST Baseline prior to enoxaparin initiation. Kasey Aamir LAB BLOOD ORDERABLES Final Resu lt Performing Organization Address [facility] Co de Phone Number [facility] [place] [address] * (ABNORMAL) CBC without differential (10/26/2023 5:28 PM LABOR RELATIONS SPECIALIST) [facility] WBC 9.1 3.8 - 9.9 K/cumm [facility] Hgb 9.6(L) 13.0 - 17.5 g/dL [facility] Hct 28.3(L) 38.9 - 50.3 % [facility] Plt 321 150 - 400 K/cumm [facility] MPV 11.4 9.1 - 12.3 fL [facility] RBC 3.16(L) 4.30 - 5.80 M/cumm [facility] MCV 89.6 81.3 - 96.4 fL [facility] MCH 30.4 27.1 - 33.3 pg [facility] MCHC 33.9 32.3 - 35.7 g/dL [facility] RDW CV 13.2 11.1 - 14.9 % [facility] RDW SD 43.6 35.7 - 48.1 fL [facility] NRBC abs 0.00 0.00 - 0.01 K/cumm [facility] Blood 10/26/2023 5:28 PM LABOR RELATIONS SPECIALIST 10/26/2023 6:01 PM LABOR RELATIONS SPECIALIST Narrative [facility] - 10/26/2023 6:09 PM LABOR RELATIONS SPECIALIST Baseline prior to enoxaparin initiation. [facility] LAB BLOOD ORDERABLES Final Resu lt Performing Organization Address [facility] Co de Phone Number [facility] [place] [address] * Protime-INR (10/26/2023 5:28 PM LABOR RELATIONS SPECIALIST) PT 13.2 10.3 - 13.7 sec [facility] INR 1.16 0.90 - 1.20 [facility] Comment: Interpretive data Oral anticoagulant therapeutic ranges: Venous thromboembolism prophylaxis or treatment: 2.0-3.0 CARDIOLOGY Standard range: 2.0-3.0 High-intensity range: 2.5-3.5 Refer to indication-specific guidelines for appropriate target ranges for prosthetic heart valve replacement. Current interpretive data was last revised on 2019. Blood 10/26/2023 5:28 PM LABOR RELATIONS SPECIALIST 10/26/2023 6:09 PM LABOR RELATIONS SPECIALIST Narrative [facility] - 10/26/2023 6:18 PM LABOR RELATIONS SPECIALIST Baseline prior [facility]arin [facility]. [facility] Final Resu lt Performing Organization Address City[facility]/ZIP Co de Phone Number [facility] [place] [address] * (ABNORMAL) Differential, auto (10/26/2023 2:43 PM LABOR RELATIONS SPECIALIST) Neutrophil abs 8.1(H) 1.5 - 6.5 K/cumm [facility] Imm gran abs 0.1 0.0 - 0.1 K/cumm [facility] Lymphocyte abs 0.9 0.8 - 3.3 K/cumm [facility] Monocyte abs 0.7 0.2 - 0.8 K/cumm [facility] Eosinophil abs 0.2 0.0 - 0.5 K/cumm [facility] Basophil abs 0.0 0.0 - 0.1 K/cumm [facility] Neutrophil pct 81.9 % [facility] Comment: Interpretive Data Percent cell count reference ranges are not reported, since discordance with absolute values may lead to misinterpretation of CBC data. Current Interpretive Data was last revised on 2018. Imm gran pct 0.6 % [facility] Comment: Interpretive Data Percent cell count reference ranges are not reported, since discordance with absolute values may lead to misinterpretation of CBC data. Current Interpretive Data was last revised on 2018. Lymphocyte pct 9.0 % [facility] Comment: Interpretive Data Percent cell count reference ranges are not reported, since discordance with absolute values may lead to misinterpretation of CBC data. Current Interpretive Data was last revised on 2018. Monocyte pct 6.6 % [facility] Comment: Interpretive Data Percent cell count reference ranges are not reported, since discordance with absolute values may lead to misinterpretation of CBC data. Current Interpretive Data was last revised on 2018. Eosinophil pct 1.5 % [facility] Comment: Interpretive Data Percent cell count reference ranges are not reported, since discordance with absolute values may lead to misinterpretation of CBC data. Current Interpretive Data was last revised on 2018. Basophil pct 0.4 % [facility] Comment: Interpretive Data Percent cell count reference ranges are not reported, since discordance with absolute values may lead to misinterpretation of CBC data. Current Interpretive Data was last revised on 2018. Blood 10/26/2023 2:43 PM LABOR RELATIONS SPECIALIST 10/26/2023 2:56 PM LABOR RELATIONS SPECIALIST us Kasey Rutledge NP LAB BLOOD ORDERABLES Final Resu lt [facility] Department [place] [address] * (ABNORMAL) CBC with auto differential (10/26/2023 2:43 PM LABOR RELATIONS SPECIALIST) [facility] WBC 9.9 3.8 - 9.9 K/cumm [facility] Hgb 9.3(L) 13.0 - 17.5 g/dL [facility] Hct 27.2(L) 38.9 - 50.3 % [facility] Plt 310 150 - 400 K/cumm [facility] MPV 11.0 9.1 - 12.3 fL [facility] RBC 3.01(L) 4.30 - 5.80 M/cumm [facility] MCV 90.4 81.3 - 96.4 fL [facility] MCH 30.9 27.1 - 33.3 pg [facility] MCHC 34.2 32.3 - 35.7 g/dL [facility] RDW CV 13.0 11.1 - 14.9 % [facility] RDW SD 43.3 35.7 - 48.1 fL [facility] NRBC abs 0.00 0.00 - 0.01 K/cumm [facility] Blood 10/26/2023 2:43 PM LABOR RELATIONS SPECIALIST 10/26/2023 2:56 PM LABOR RELATIONS SPECIALIST Narrative [facility] - 10/26/2023 3:05 PM LABOR RELATIONS SPECIALIST Please draw one hour after second unit of PRBC's us Kasey Rutledge NP LAB BLOOD ORDERABLES Final Resu lt [facility] Department [place] [address] * Transfuse RBC (10/26/2023 1:41 PM LABOR RELATIONS SPECIALIST) Blood us Hayder Vu Jr., MD BLOOD TRANSFUSION O RDERABLES Final Result [facility] Department [place] [address] * Transfuse RBC: 1 Units (10/26/2023 1:41 PM LABOR RELATIONS SPECIALIST) Blood Hayder Vu Jr., MD BLOOD TRANSFUSION O RDERABLES Final Result * (ABNORMAL) aPTT (10/26/2023 11:09 AM LABOR RELATIONS SPECIALIST) aPTT 74(H) 28 - 38 sec [facility] Comment: Interpretive Data Heparin therapeutic range: 66.0 - 100.0 seconds. Range based on correlation with therapeutic heparin activity range of 0.3 - 0.7 Units/mL. Current interpretive data was last revised on 2023. Blood 10/26/2023 11:0 9 AM LABOR RELATIONS SPECIALIST 10/26/2023 11:38 AM LABOR RELATIONS SPECIALIST Ca Ruano MD PhD LAB BLOOD ORDERABLES Final Result Performing Organization Address [facility] Co de Phone Number [facility] Department [place] [address] * Prepare RBC: 1 Units (10/26/2023 4:46 AM LABOR RELATIONS SPECIALIST) Pathologist [facility] Product code [id number] Unit Number [id number] * [facility] Product Blood Type OPOS [facility] Dispense Status PRESUMED TRANSFUSED [facility] Blood 10/26/2023 4:46 AM LABOR RELATIONS SPECIALIST 10/26/2023 4:45 AM LABOR RELATIONS SPECIALIST Narrative [facility] - 10/26/2023 4:02 PM LABOR RELATIONS SPECIALIST Are special requirements needed? (All products are leukoreduced and CMV- safe)- >No Date required:-20231026 LRRBC # of [id number] Reasons:-Active bleeding, Hgb <8 g/dL} us Hayder Vu Jr., MD BLOOD BANK PRODUCT ORDERABLES Final Result Performing Organization Address [facility] Co de Phone Number [facility] Department [place] [address] * Prepare RBC: 1 Units (10/26/2023 3:03 AM LABOR RELATIONS SPECIALIST) Pathologist [facility] Product code [id number] Unit Number [id number] [facility] Product Blood Type OPOS [facility] Dispense Status PRESUMED TRANSFUSED [facility] Blood 10/26/2023 3:03 AM LABOR RELATIONS SPECIALIST 10/26/2023 3:03 AM LABOR RELATIONS SPECIALIST Narrative [facility] - 10/26/2023 4:01 PM LABOR RELATIONS SPECIALIST Are special requirements needed? (All products are leukoreduced and CMV- safe)- >No Date required:-20231026 LRRBC # of [id number] Reasons:-Hgb <7 g/dL} Hayder Vu Jr., MD BLOOD BANK PRODUCT ORDERABLES Final Result [facility] Department [place] [address] * (ABNORMAL) aPTT (10/26/2023 2:21 AM LABOR RELATIONS SPECIALIST) Pathologist [facility] aPTT 58(H) 28 - 38 sec [facility] Comment: Interpretive Data Heparin therapeutic range: 66.0 - 100.0 seconds. Range based on correlation with therapeutic heparin activity range of 0.3 - 0.7 Units/mL. Current interpretive data was last revised on 2023. Blood 10/26/2023 2:21 AM LABOR RELATIONS SPECIALIST 10/26/2023 2:32 AM LABOR RELATIONS SPECIALIST Narrative [facility] - 10/26/2023 2:54 AM LABOR RELATIONS SPECIALIST Draw STAT PTT 6 hrs after initiation of heparin infusion, draw STAT PTT 6 hours after each dose change, and every 6 hours until 2 consecutive PTTs are within therapeutic range. Once two consecutive PTT's are therapeutic (66-100 seconds), then draw PTT every AM until heparin is discontinued. us Hayder Vu Jr., MD LAB BLOOD ORDERABLE S Final Result Performing Organization Address [facility]/ZIP Co de Phone Number [facility] [place] [address] * Type and screen (10/26/2023 2:21 AM LABOR RELATIONS SPECIALIST) [facility] Jigna, indirect Negative ABO Rh O Positive [facility] Blood 10/26/2023 2:21 AM LABOR RELATIONS SPECIALIST 10/26/2023 2:32 AM LABOR RELATIONS SPECIALIST Narrative [facility] - 10/26/2023 3:20 AM LABOR RELATIONS SPECIALIST Has the patient had Daratumumab or Isatuximab in the past 6 months?->Unknown Tia Nolan PROOF TECHNICIAN LAB BLOOD BANK TEST OR DERABLES Final Result Performing Organization Address [facility] Co de Phone Number [facility] [place] [address] * (ABNORMAL) CBC without differential (10/26/2023 2:21 AM LABOR RELATIONS SPECIALIST) [facility] WBC 9.0 3.8 - 9.9 K/cumm [facility] Hgb 6.7(L) 13.0 - 17.5 g/dL [facility] Hct 19.6(L) 38.9 - 50.3 % [facility] Plt 297 150 - 400 K/cumm [facility] MPV 10.9 9.1 - 12.3 fL [facility] RBC 2.15(L) 4.30 - 5.80 M/cumm [facility] MCV 91.2 81.3 - 96.4 fL [facility] MCH 31.2 27.1 - 33.3 pg [facility] MCHC 34.2 32.3 - 35.7 g/dL [facility] RDW CV 12.5 11.1 - 14.9 % [facility] RDW SD 41.9 35.7 - 48.1 fL [facility] NRBC abs 0.00 0.00 - 0.01 K/cumm [facility] Blood 10/26/2023 2:21 AM LABOR RELATIONS SPECIALIST 10/26/2023 2:40 AM LABOR RELATIONS SPECIALIST Tia Nolan PROOF TECHNICIAN LAB BLOOD ORDERABLES F inal Result Performing Organization Address [facility] Co de Phone Number [facility] Department [place] [address] * Phosphorus (10/26/2023 2:21 AM LABOR RELATIONS SPECIALIST) Phosphorus, pl 2.3 2.3 - 4.5 mg/dL [facility] Blood 10/26/2023 2:21 AM LABOR RELATIONS SPECIALIST 10/26/2023 2:40 AM LABOR RELATIONS SPECIALIST Tia Nolan PROOF TECHNICIAN LAB BLOOD ORDERABLES F inal Result Performing Organization Address [facility] de Phone Number [facility] [place] [address] * Magnesium (10/26/2023 2:21 AM LABOR RELATIONS SPECIALIST) Magnesium 1.8 1.4 - 2.5 mg/dL [facility] Blood 10/26/2023 2:21 AM LABOR RELATIONS SPECIALIST 10/26/2023 2:40 AM LABOR RELATIONS SPECIALIST Tia Nolan PROOF TECHNICIAN LAB BLOOD ORDERABLES F inal Result Performing Organization Address [facility] de Phone Number [facility] Department [place] [address] * Potassium, whole blood (10/25/2023 10:11 PM LABOR RELATIONS SPECIALIST) Potassium, bld 3.5 3.3 - 4.9 mmol/L [facility] Blood 10/25/2023 10:1 1 PM LABOR RELATIONS SPECIALIST 10/25/2023 10:19 PM LABOR RELATIONS SPECIALIST Tia Nolan PROOF TECHNICIAN LAB BLOOD ORDERABLES F inal Result [facility] Department [place] [address] * Critical Care (10/25/2023 9:09 PM LABOR RELATIONS SPECIALIST) Narrative Wilder Arceo Jr., MD - 10/25/2023 9:09 PM LABOR RELATIONS SPECIALIST Tia Nolan NP ? 10/26/2023 12:17 AM [...] Final Result * eGFR (10/25/2023 8:41 PM LABOR RELATIONS SPECIALIST) [facility] eGFR >90 >=60 mL/min/1. 73 m2 [...] last reviewed 2021. Blood 10/25/2023 8:41 PM LABOR RELATIONS SPECIALIST 10/25/2023 8:58 PM LABOR RELATIONS SPECIALIST us Oneyda Foley PROOF TECHNICIAN LAB BLOOD ORDERABLES Final Res ult Performing Organization Address City/State/[facility] Co de Phone Number [facility] Department [place] [address] * (ABNORMAL) Differential, auto (10/25/2023 8:41 PM LABOR RELATIONS SPECIALIST) Neutrophil abs 7.3(H) 1.5 - 6.5 K/cumm [facility] Imm gran abs 0.1 0.0 - 0.1 K/cumm [facility] Lymphocyte abs 1.6 0.8 - 3.3 K/cumm [facility] Monocyte abs 0.8 0.2 - 0.8 K/cumm [facility] Eosinophil abs 0.3 0.0 - 0.5 K/cumm [facility] Basophil abs 0.0 0.0 - 0.1 K/cumm [facility] Neutrophil pct 72.9 % [facility] Comment: Interpretive Data Percent cell count reference ranges are not reported, since discordance with absolute values may lead to misinterpretation of CBC data. Current Interpretive Data was last revised on 2018. Imm gran pct 0.5 % [facility] Comment: Interpretive Data Percent cell count reference ranges are not reported, since discordance with absolute values may lead to misinterpretation of CBC data. Current Interpretive Data was last revised on 2018. Lymphocyte pct 15.7 % [facility] Comment: Interpretive Data Percent cell count reference ranges are not reported, since discordance with absolute values may lead to misinterpretation of CBC data. Current Interpretive Data was last revised on 2018. Monocyte pct 7.8 % [facility] Comment: Interpretive Data Percent cell count reference ranges are not reported, since discordance with absolute values may lead to misinterpretation of CBC data. Current Interpretive Data was last revised on 2018. Eosinophil pct 2.7 % [facility] Comment: Interpretive Data Percent cell count reference ranges are not reported, since discordance with absolute values may lead to misinterpretation of CBC data. Current Interpretive Data was last revised on 2018. Basophil pct 0.4 % [facility] Comment: Interpretive Data Percent cell count reference ranges are not reported, since discordance with absolute values may lead to misinterpretation of CBC data. Current Interpretive Data was last revised on 2018. Blood 10/25/2023 8:41 PM LABOR RELATIONS SPECIALIST 10/25/2023 8:58 PM LABOR RELATIONS SPECIALIST us Oneyda Foley NP LAB BLOOD ORDERABLES Final Res ult [facility] Department [place] [address] * (ABNORMAL) CBC with auto differential (10/25/2023 8:41 PM LABOR RELATIONS SPECIALIST) Pathologist [facility] WBC 10.0(H) 3.8 - 9.9 K/cumm [facility] Hgb 7.0(L) 13.0 - 17.5 g/dL [facility] Hct 19.7(L) 38.9 - 50.3 % [facility] Plt 320 150 - 400 K/cumm [facility] MPV 11.6 9.1 - 12.3 fL [facility] RBC 2.14(L) 4.30 - 5.80 M/cumm [facility] MCV 92.1 81.3 - 96.4 fL [facility] MCH 32.7 27.1 - 33.3 pg [facility] MCHC 35.5 32.3 - 35.7 g/dL [facility] RDW CV 12.6 11.1 - 14.9 % [facility] RDW SD 42.2 35.7 - 48.1 fL [facility] NRBC abs 0.00 0.00 - 0.01 K/cumm [facility] Blood 10/25/2023 8:41 PM LABOR RELATIONS SPECIALIST 10/25/2023 8:58 PM LABOR RELATIONS SPECIALIST us Tia Nolan PROOF TECHNICIAN LAB BLOOD ORDERABLES F inal Result [facility] Department [place] [address] * (ABNORMAL) Basic metabolic panel (10/25/2023 8:41 PM LABOR RELATIONS SPECIALIST) Sodium 133(L) 135 - 145 mmol/L [facility] Potassium, pl See Comment 3.3 - 4.9 mmol/L [facility] Comment:Credited; Hemolyzed Specimen Chloride 103 97 - 110 mmol/L [facility] CO2 26 22 - 32 mmol/L [facility] Anion gap 4 2 - 15 mmol/L [facility] BUN 13 6 - 25 mg/dL [facility] Creatinine 0.86 0.80 - 1.30 mg/dL [facility] Glucose 157 70 - 199 mg/dL [facility] Comment: Interpretive Data Fasting glucose [...] 2022. Calcium 7.8(L) 8.5 - 10.3 mg/dL [facility] Blood 10/25/2023 8:41 PM LABOR RELATIONS SPECIALIST 10/25/2023 8:58 PM LABOR RELATIONS SPECIALIST us Tia Nolan PROOF TECHNICIAN LAB BLOOD ORDERABLES F inal Result Performing Organization Address [facility] Co de Phone Number [facility] [place] [address] * POCT glucose (10/25/2023 7:22 PM LABOR RELATIONS SPECIALIST) [facility] Signature Glucose, POC 162 70 - 199 mg/dL [facility] Blood 10/25/2023 7:22 PM LABOR RELATIONS SPECIALIST 10/25/2023 7:22 PM LABOR RELATIONS SPECIALIST us Hayder Vu Jr., MD LAB POCT ORDERABLES - DEVICE Final Result Performing Organization Address [facility] Co de Phone Number [facility] Department [place] [address] * Critical Care (10/25/2023 6:45 PM LABOR RELATIONS SPECIALIST) Narrative Luana Brady NP - 10/25/2023 6:45 PM LABOR RELATIONS SPECIALIST Luana Brady NP ? 10/25/2023 ??6:45 PM [...] day of service. ?? us Luana Brady PROOF TECHNICIAN IN CLINIC/BEDSIDE ORDERABLES Final Result * (ABNORMAL) aPTT (10/25/2023 4:59 PM LABOR RELATIONS SPECIALIST) aPTT 62(H) 28 - 38 sec [facility] Comment: Interpretive Data Heparin therapeutic range: 66.0 - 100.0 seconds. Range based on correlation with therapeutic heparin activity range of 0.3 - 0.7 Units/mL. Current interpretive data was last revised on 2023. Blood 10/25/2023 4:59 PM LABOR RELATIONS SPECIALIST 10/25/2023 5:12 PM LABOR RELATIONS SPECIALIST Narrative [facility] - 10/25/2023 5:34 PM LABOR RELATIONS SPECIALIST Draw STAT PTT 6 hrs after initiation of heparin infusion, draw STAT PTT 6 hours after each dose change, and every 6 hours until 2 consecutive PTTs are within therapeutic range. Once two consecutive PTT's are therapeutic (66-100 seconds), then draw PTT every AM until heparin is discontinued. Hayder Vu Jr., MD LAB BLOOD ORDERABLE S Final Result [facility] [place] [address] * POCT glucose (10/25/2023 3:09 PM LABOR RELATIONS SPECIALIST) Pathologist [facility] Glucose, POC 118 70 - 199 mg/dL [facility] Blood 10/25/2023 3:09 PM LABOR RELATIONS SPECIALIST 10/25/2023 3:09 PM LABOR RELATIONS SPECIALIST Hayder Vu Jr., MD LAB POCT ORDERABLES - DEVICE Final Result [facility] [place] [address] * MRI Brain Epilepsy W WO Contrast (10/25/2023 1:55 PM LABOR RELATIONS SPECIALIST) Anatomical Region Laterality Modality Head and Neck N/A Magnetic Resonan ce 10/25/2023 2:57 PM LABOR RELATIONS SPECIALIST Impressions 10/25/2023 3:42 PM LABOR RELATIONS SPECIALIST 1. ??Thin bilateral convexity subdural hematomas, not significantly changed in size compared to the prior head CT. 2. ??Diffuse pachymeningeal thickening and enhancement likely related to recent lumbar surgery. 3. No MR evidence of abnormalities of neuronal migration. Dictated by: Patrick Guerra, DO The radiology attending physician has personally reviewed this study, and had reviewed and/or edited this written report and agrees with it. Electronically signed by: Francia Schmitz M.D. Narrative 10/25/2023 3:42 PM LABOR RELATIONS SPECIALIST EXAMINATION: Magnetic resonance imaging (MRI) of the [...] Francia Schmitz M.D. Hayder Vu Jr., MD IM MRI PROCEDURES Final Result * POCT glucose (10/25/2023 10:57 AM LABOR RELATIONS SPECIALIST) Glucose, POC 195 70 - 199 mg/dL [facility] Blood 10/25/2023 10:5 7 AM LABOR RELATIONS SPECIALIST 10/25/2023 10:57 AM LABOR RELATIONS SPECIALIST Hayder Vu Jr., MD LAB POCT ORDERABLES - DEVICE Final Result [facility] Department [place] [address] * (ABNORMAL) Differential, auto (10/25/2023 10:14 AM LABOR RELATIONS SPECIALIST) Neutrophil abs 10.6(H) 1.5 - 6.5 K/cumm [facility] Imm gran abs 0.1 0.0 - 0.1 K/cumm [facility] Lymphocyte abs 1.5 0.8 - 3.3 K/cumm [facility] Monocyte abs 0.9(H) 0.2 - 0.8 K/cumm [facility] Eosinophil abs 0.2 0.0 - 0.5 K/cumm [facility] Basophil abs 0.1 0.0 - 0.1 K/cumm [facility] Neutrophil pct 79.5 % [facility] Comment: Interpretive Data Percent cell count reference ranges are not reported, since discordance with absolute values may lead to misinterpretation of CBC data. Current Interpretive Data was last revised on 2018. Imm gran pct 0.5 % [facility] Comment: Interpretive Data Percent cell count reference ranges are not reported, since discordance with absolute values may lead to misinterpretation of CBC data. Current Interpretive Data was last revised on 2018. Lymphocyte pct 11.3 % [facility] Comment: Interpretive Data Percent cell count reference ranges are not reported, since discordance with absolute values may lead to misinterpretation of CBC data. Current Interpretive Data was last revised on 2018. Monocyte pct 6.9 % [facility] Comment: Interpretive Data Percent cell count reference ranges are not reported, since discordance with absolute values may lead to misinterpretation of CBC data. Current Interpretive Data was last revised on 2018. Eosinophil pct 1.1 % [facility] Comment: Interpretive Data Percent cell count reference ranges are not reported, since discordance with absolute values may lead to misinterpretation of CBC data. Current Interpretive Data was last revised on 2018. Basophil pct 0.7 % [facility] Comment: Interpretive Data Percent cell count reference ranges are not reported, since discordance with absolute values may lead to misinterpretation of CBC data. Current Interpretive Data was last revised on 2018. Blood 10/25/2023 10:1 4 AM LABOR RELATIONS SPECIALIST 10/25/2023 10:27 AM LABOR RELATIONS SPECIALIST Hayder Vu Jr., MD LAB BLOOD ORDERABLE S Final Result Performing Organization Address [facility] Co de Phone Number [facility] [place] [address] * (ABNORMAL) aPTT (10/25/2023 10:14 AM LABOR RELATIONS SPECIALIST) Pathologist [facility] aPTT 60(H) 28 - 38 sec [facility] Comment: Interpretive Data Heparin therapeutic range: 66.0 - 100.0 seconds. Range based on correlation with therapeutic heparin activity range of 0.3 - 0.7 Units/mL. Current interpretive data was last revised on 2023. Blood 10/25/2023 10:1 4 AM LABOR RELATIONS SPECIALIST 10/25/2023 10:27 AM LABOR RELATIONS SPECIALIST Narrative [facility] - 10/25/2023 10:56 AM LABOR RELATIONS SPECIALIST Draw STAT PTT 6 hrs after initiation of heparin infusion, draw STAT PTT 6 hours after each dose change, and every 6 hours until 2 consecutive PTTs are within therapeutic range. Once two consecutive PTT's are therapeutic (66-100 seconds), then draw PTT every AM until heparin is discontinued. Hayder Vu Jr., MD LAB BLOOD ORDERABLE S Final Result Performing Organization Address [facility] de Phone Number [facility] [place] [address] * (ABNORMAL) CBC with auto differential (10/25/2023 10:14 AM LABOR RELATIONS SPECIALIST) WBC 13.3(H) 3.8 - 9.9 K/cumm [facility] Hgb 8.2(L) 13.0 - 17.5 g/dL [facility] Hct 24.1(L) 38.9 - 50.3 % [facility] Plt 367 150 - 400 K/cumm [facility] MPV 11.0 9.1 - 12.3 fL [facility] RBC 2.57(L) 4.30 - 5.80 M/cumm [facility] MCV 93.8 81.3 - 96.4 fL [facility] MCH 31.9 27.1 - 33.3 pg [facility] MCHC 34.0 32.3 - 35.7 g/dL [facility] RDW CV 12.4 11.1 - 14.9 % [facility] RDW SD 43.0 35.7 - 48.1 fL [facility] NRBC abs 0.00 0.00 - 0.01 K/cumm [facility] Blood 10/25/2023 10:1 4 AM LABOR RELATIONS SPECIALIST 10/25/2023 10:27 AM LABOR RELATIONS SPECIALIST Hayder Vu Jr., MD LAB BLOOD ORDERABLE S Final Result [facility] Department [place] [address] * XR Chest 1 View (10/25/2023 9:52 AM LABOR RELATIONS SPECIALIST) Anatomical Region Laterality Modality Body, Chest N/A Computed Radiogr aphy 10/25/2023 11:1 3 AM LABOR RELATIONS SPECIALIST Impressions 10/25/2023 11:23 AM LABOR RELATIONS SPECIALIST Comparison made to chest radiograph 10/22/2023 at [...] Keely Williamson M.D. Narrative 10/25/2023 11:23 AM LABOR RELATIONS SPECIALIST EXAMINATION: 1 view chest radiograph Procedure Note [...] Result * POCT glucose (10/25/2023 6:58 AM LABOR RELATIONS SPECIALIST) Glucose, POC 129 70 - 199 mg/dL [facility] Blood 10/25/2023 6:58 AM LABOR RELATIONS SPECIALIST 10/25/2023 6:58 AM LABOR RELATIONS SPECIALIST Hayder Vu Jr., MD LAB POCT ORDERABLES - DEVICE Final Result Performing Organization Address [facility] Co de Phone Number [facility] [place] [address] * POCT glucose (10/25/2023 3:44 AM LABOR RELATIONS SPECIALIST) Glucose, POC 102 70 - 199 mg/dL [facility] Blood 10/25/2023 3:44 AM LABOR RELATIONS SPECIALIST 10/25/2023 3:44 AM LABOR RELATIONS SPECIALIST Hayder Vu Jr., MD LAB POCT ORDERABLES - DEVICE Final Result Performing Organization Address [facility] Co de Phone Number [facility] [place] [address] * (ABNORMAL) aPTT (10/25/2023 3:14 AM LABOR RELATIONS SPECIALIST) aPTT 47(H) 28 - 38 sec [facility] Comment: Interpretive Data Heparin therapeutic range: 66.0 - 100.0 seconds. Range based on correlation with therapeutic heparin activity range of 0.3 - 0.7 Units/mL. Current interpretive data was last revised on 2023. Blood 10/25/2023 3:14 AM LABOR RELATIONS SPECIALIST 10/25/2023 3:25 AM LABOR RELATIONS SPECIALIST Narrative [facility] - 10/25/2023 3:47 AM LABOR RELATIONS SPECIALIST Draw STAT PTT 6 hrs after initiation of heparin infusion, draw STAT PTT 6 hours after each dose change, and every 6 hours until 2 consecutive PTTs are within therapeutic range. Once two consecutive PTT's are therapeutic (66-100 seconds), then draw PTT every AM until heparin is discontinued. us Hayder Vu Jr., MD LAB BLOOD ORDERABLE S Final Result Performing Organization Address [facility] de Phone Number [facility] Department [place] [address] * POCT glucose (10/24/2023 11:45 PM LABOR RELATIONS SPECIALIST) [facility] Signature Glucose, POC 141 70 - 199 mg/dL [facility] Blood 10/24/2023 11:4 5 PM LABOR RELATIONS SPECIALIST 10/24/2023 11:45 PM LABOR RELATIONS SPECIALIST Hayder Vu Jr., MD LAB POCT ORDERABLES - DEVICE Final Result Performing Organization Address [facility] de Phone Number [facility] [place] [address] * Critical Care (10/24/2023 11:00 PM LABOR RELATIONS SPECIALIST) Narrative Wilder Arceo Jr., MD - 10/24/2023 11:00 PM LABOR RELATIONS SPECIALIST Wilder Arceo Jr., MD ? 10/25/2023 12:47 [...] Acute pain/acute postoperative pain and Seizure ?? [id number] mycardial infarction (Non-STEMI) and Cardiac arrest ?? [...] * (ABNORMAL) Calcium, ionized (10/24/2023 9:11 PM LABOR RELATIONS SPECIALIST) [facility] Calcium, Ionized 4.38(L) 4.50 - 5.10 mg/dL [facility] Blood 10/24/2023 9:11 PM LABOR RELATIONS SPECIALIST 10/24/2023 9:18 PM LABOR RELATIONS SPECIALIST Hayder Vu Jr., MD LAB BLOOD ORDERABLE S Final Result [facility] Department [place] [address] * POCT glucose (10/24/2023 7:42 PM LABOR RELATIONS SPECIALIST) Glucose, POC 122 70 - 199 mg/dL [facility] Blood 10/24/2023 7:42 PM LABOR RELATIONS SPECIALIST 10/24/2023 7:42 PM LABOR RELATIONS SPECIALIST Hayder Vu Jr., MD LAB POCT ORDERABLES - DEVICE Final Result Performing Organization Address [facility] Co de Phone Number [facility] Department [place] [address] * (ABNORMAL) Basic metabolic panel (10/24/2023 7:06 PM LABOR RELATIONS SPECIALIST) Pathologist [facility] Sodium 136 135 - 145 mmol/L [facility] Potassium, pl 3.7 3.3 - 4.9 mmol/L [facility] Chloride 104 97 - 110 mmol/L [facility] CO2 25 22 - 32 mmol/L [facility] Anion gap 7 2 - 15 mmol/L [facility] BUN 13 6 - 25 mg/dL [facility] Creatinine 0.94 0.80 - 1.30 mg/dL [facility] Glucose 126 70 - 199 mg/dL [facility] Comment: Interpretive Data Fasting glucose [...] 2022. Calcium 8.1(L) 8.5 - 10.3 mg/dL [facility] Blood 10/24/2023 7:06 PM LABOR RELATIONS SPECIALIST 10/24/2023 7:12 PM LABOR RELATIONS SPECIALIST Hayder Vu Jr., MD LAB BLOOD ORDERABLE S Final Result Performing Organization Address [facility]/ZIP Co de Phone Number [facility] Department [place] [address] * eGFR (10/24/2023 7:06 PM LABOR RELATIONS SPECIALIST) Pathologist [facility] eGFR 86 >=60 mL/min/1. 73 m2 [facility] Comment: Interpretive Data Reference Interval [...] last reviewed 2021. Blood 10/24/2023 7:06 PM LABOR RELATIONS SPECIALIST 10/24/2023 7:16 PM LABOR RELATIONS SPECIALIST us Hayder Vu Jr., MD LAB BLOOD ORDERABLE S Final Result Performing Organization Address [facility] Co de Phone Number [facility] Department [place] [address] * (ABNORMAL) Differential, auto (10/24/2023 7:06 PM LABOR RELATIONS SPECIALIST) Neutrophil abs 10.4(H) 1.5 - 6.5 K/cumm [facility] Imm gran abs 0.1 0.0 - 0.1 K/cumm [facility] Lymphocyte abs 1.2 0.8 - 3.3 K/cumm [facility] Monocyte abs 0.9(H) 0.2 - 0.8 K/cumm [facility] Eosinophil abs 0.1 0.0 - 0.5 K/cumm [facility] Basophil abs 0.1 0.0 - 0.1 K/cumm [facility] Neutrophil pct 82.0 % [facility] Comment: Interpretive Data Percent cell count reference ranges are not reported, since discordance with absolute values may lead to misinterpretation of CBC data. Current Interpretive Data was last revised on 2018. Imm gran pct 0.5 % [facility] Comment: Interpretive Data Percent cell count reference ranges are not reported, since discordance with absolute values may lead to misinterpretation of CBC data. Current Interpretive Data was last revised on 2018. Lymphocyte pct 9.7 % [facility] Comment: Interpretive Data Percent cell count reference ranges are not reported, since discordance with absolute values may lead to misinterpretation of CBC data. Current Interpretive Data was last revised on 2018. Monocyte pct 6.9 % [facility] Comment: Interpretive Data Percent cell count reference ranges are not reported, since discordance with absolute values may lead to misinterpretation of CBC data. Current Interpretive Data was last revised on 2018. Eosinophil pct 0.4 % [facility] Comment: Interpretive Data Percent cell count reference ranges are not reported, since discordance with absolute values may lead to misinterpretation of CBC data. Current Interpretive Data was last revised on 2018. Basophil pct 0.5 % [facility] Comment: Interpretive Data Percent cell count reference ranges are not reported, since discordance with absolute values may lead to misinterpretation of CBC data. Current Interpretive Data was last revised on 2018. Blood 10/24/2023 7:06 PM LABOR RELATIONS SPECIALIST 10/24/2023 7:16 PM LABOR RELATIONS SPECIALIST Oneyda Kabargina PROOF TECHNICIAN LAB BLOOD ORDERABLES Final Res ult Performing Organization Address [facility] [place] [address] * Phosphorus (10/24/2023 7:06 PM LABOR RELATIONS SPECIALIST) [facility] Phosphorus, pl 3.3 2.3 - 4.5 mg/dL [facility] Blood 10/24/2023 7:06 PM LABOR RELATIONS SPECIALIST 10/24/2023 7:12 PM LABOR RELATIONS SPECIALIST Tia Nolan PROOF TECHNICIAN LAB BLOOD ORDERABLES F inal Result Performing Organization Address [facility] Co de Phone Number [facility] [place] [address] * Magnesium (10/24/2023 7:06 PM LABOR RELATIONS SPECIALIST) [facility] Magnesium 2.1 1.4 - 2.5 mg/dL [facility] Blood 10/24/2023 7:06 PM LABOR RELATIONS SPECIALIST 10/24/2023 7:12 PM LABOR RELATIONS SPECIALIST Tia Nolan PROOF TECHNICIAN LAB BLOOD ORDERABLES F inal Result Performing Organization Address [facility] Co de Phone Number [facility] [place] [address] * (ABNORMAL) CBC with auto differential (10/24/2023 7:06 PM LABOR RELATIONS SPECIALIST) [facility] WBC 12.7(H) 3.8 - 9.9 K/cumm [facility] Hgb 7.6(L) 13.0 - 17.5 g/dL [facility] Hct 22.1(L) 38.9 - 50.3 % [facility] Plt 332 150 - 400 K/cumm [facility] MPV 10.8 9.1 - 12.3 fL [facility] RBC 2.42(L) 4.30 - 5.80 M/cumm [facility] MCV 91.3 81.3 - 96.4 fL [facility] MCH 31.4 27.1 - 33.3 pg [facility] MCHC 34.4 32.3 - 35.7 g/dL [facility] RDW CV 12.5 11.1 - 14.9 % [facility] RDW SD 42.5 35.7 - 48.1 fL [facility] NRBC abs 0.00 0.00 - 0.01 K/cumm [facility] Blood 10/24/2023 7:06 PM LABOR RELATIONS SPECIALIST 10/24/2023 7:16 PM LABOR RELATIONS SPECIALIST Tia Nolan PROOF TECHNICIAN LAB BLOOD ORDERABLES F inal Result Performing Organization Address [facility] Co de Phone Number [facility] [place] [address] * aPTT (10/24/2023 7:06 PM LABOR RELATIONS SPECIALIST) aPTT 35 28 - 38 sec [facility] Comment: Interpretive Data Heparin therapeutic range: 66.0 - 100.0 seconds. Range based on correlation with therapeutic heparin activity range of 0.3 - 0.7 Units/mL. Current interpretive data was last revised on 2023. Blood 10/24/2023 7:06 PM LABOR RELATIONS SPECIALIST 10/24/2023 7:13 PM LABOR RELATIONS SPECIALIST Oneyda Foley PROOF TECHNICIAN LAB BLOOD ORDERABLES Final Res ult Performing Organization Address [facility] Co de Phone Number [facility] [place] [address] * (ABNORMAL) Protime-INR (10/24/2023 7:06 PM LABOR RELATIONS SPECIALIST) PT 13.8(H) 10.3 - 13.7 sec [facility] INR 1.21(H) 0.90 - 1.20 [facility] Comment: Interpretive data Oral anticoagulant therapeutic ranges: Venous thromboembolism prophylaxis or treatment: 2.0-3.0 CARDIOLOGY Standard range: 2.0-3.0 High-intensity range: 2.5-3.5 Refer to indication-specific guidelines for appropriate target ranges for prosthetic heart valve replacement. Current interpretive data was last revised on 2019. Blood 10/24/2023 7:06 PM LABOR RELATIONS SPECIALIST 10/24/2023 7:13 PM LABOR RELATIONS SPECIALIST Oneyda Foley NP LAB BLOOD ORDERABLES Final Res ult Performing Organization Address [facility]/ZIP Co de Phone Number [facility] Department [place] [address] * POCT glucose (10/24/2023 2:58 PM LABOR RELATIONS SPECIALIST) Glucose, POC 122 70 - 199 mg/dL [facility] Blood 10/24/2023 2:58 PM LABOR RELATIONS SPECIALIST 10/24/2023 2:58 PM LABOR RELATIONS SPECIALIST us Hayder Vu Jr., MD LAB POCT ORDERABLES - DEVICE Final Result Performing Organization Address [facility] Co de Phone Number [facility] Department [place] [address] * aPTT (10/24/2023 12:18 PM LABOR RELATIONS SPECIALIST) aPTT 35 28 - 38 sec [facility] Comment: Interpretive Data Heparin therapeutic range: 66.0 - 100.0 seconds. Range based on correlation with therapeutic heparin activity range of 0.3 - 0.7 Units/mL. Current interpretive data was last revised on 2023. Blood 10/24/2023 12:1 8 PM LABOR RELATIONS SPECIALIST 10/24/2023 12:30 PM LABOR RELATIONS SPECIALIST Narrative [facility] - 10/24/2023 12:55 PM LABOR RELATIONS SPECIALIST Draw STAT PTT 6 hrs after initiation of heparin infusion, draw STAT PTT 6 hours after each dose change, and every 6 hours until 2 consecutive PTTs are within therapeutic range. Once two consecutive PTT's are therapeutic (66-100 seconds), then draw PTT every AM until heparin is discontinued. us Hayder Vu Jr., MD LAB BLOOD ORDERABLE S Final Result [facility] Department [place] [address] * TRANSTHORACIC ECHO (TTE) COMPLETE W DOPPLER/CF W CONTRAST (10/24/2023 11:43 AM LABOR RELATIONS SPECIALIST) LV EF 70 % CARDIOREPORT Anatomical Region Laterality Modality Ultrasound 10/24/2023 7:00 AM LABOR RELATIONS SPECIALIST Narrative 10/24/2023 12:10 PM LABOR RELATIONS SPECIALIST Patient name: Hira Evans Date of test: 10/24/2023 Type of test: TTE w/Doppler Hospital #: 0 Date of : 1950 (M) Associate Director Qa: Krystal Wasserman RUST Referring Physician: HAYDER VU MD Contrast Agent: 1.1 ml Optison Administered, (1.9 ml wasted). Contrast Administered by: icu nurse Supervised/Interpreted by: Woody White MD Diagnosis: Location: [facility] Reason for test: Post arrest, bilateral [...] 2=Hypo 3=Akinetic 4=Dyskin./Aneurysm 0=Not visualized) Parasternal Long Alpine:MAS=1 BAS=1 MIL=1 HIPOLITO=1 Parasternal Short Alpine:MAS=1 MIS=1 KY=1 MIL=1 MAL=1 MA=1 Apical 4 [...] MD By signing this report, the attending chocolate dipper certifies that he or she has personally supervised and interpreted the echocardiogram and has reviewed and or edited and agrees with the written comments contained within the report. Procedure Note Woody Hidalgo MD - 10/24/2023 Patient name: Hira Evans Date of test: 10/24/2023 Type of test: TTE w/Doppler Hospital #: 0 Date of : 1950 (M) Associate Director Qa: Krystal Wasserman RUST Referring Physician: HAYDER VU MD Contrast Agent: 1.1 ml Optison Administered, (1.9 ml wasted). Contrast Administered by: icu nurse Supervised/Interpreted by: Woody White MD Diagnosis: Location: [facility] Reason for test: Post arrest, bilateral [...] 2=Hypo 3=Akinetic 4=Dyskin./Aneurysm 0=Not visualized) Parasternal Long Alpine:MAS=1 BAS=1 MIL=1 HIPOLITO=1 Parasternal Short Alpine:MAS=1 MIS=1 KY=1 MIL=1 MAL=1 MA=1 Apical 4 [...] MD By signing this report, the attending chocolate dipper certifies that he or she has personally supervised and interpreted the echocardiogram and has reviewed and or edited and agrees with the written comments contained within the report. Hayder Vu Jr., MD CV ECHO PROCEDURES Final Result * POCT glucose (10/24/2023 11:04 AM LABOR RELATIONS SPECIALIST) Pathologist [facility] Glucose, POC 121 70 - 199 mg/dL [facility] Blood 10/24/2023 11:0 4 AM LABOR RELATIONS SPECIALIST 10/24/2023 11:04 AM LABOR RELATIONS SPECIALIST Hayder Vu Jr., MD LAB POCT ORDERABLES - DEVICE Final Result Performing Organization Address [facility] de Phone Number [facility] [place] [address] * (ABNORMAL) Troponin I high-sensitivity 6-hour (10/24/2023 9:39 AM LABOR RELATIONS SPECIALIST) [facility] Trop I hs 133(H) <=35 ng/L [facility] Comment: Interpretive Data [facility] resources including the diagnostic algorithm and an aid in interpretation, copy and paste this link: [email or web address].[email or web address]/[email or web address] Current Interpretive Data last revised 2020. Previous critical value noted within 48 hours ago. Trop I hs pct delta -35(C) % [facility] Trop I hs interp Significa nt(C) [facility] Blood 10/24/2023 9:39 AM LABOR RELATIONS SPECIALIST 10/24/2023 9:54 AM LABOR RELATIONS SPECIALIST Hayder Vu Jr., MD LAB BLOOD ORDERABLE S Edited Result - Final Performing Organization Address [facility] de Phone Number [facility] Department [place] [address] * (ABNORMAL) Troponin I high-sensitivity (10/24/2023 8:32 AM LABOR RELATIONS SPECIALIST) Trop I hs 153(H) <=35 ng/L [facility] Comment: Interpretive Data For further hscTnI resources including the diagnostic algorithm and an aid in interpretation, copy and paste this link: https://bjhlab.testcatalog.org/show/hsTrop-1 Current Interpretive Data last revised 2020. Blood 10/24/2023 8:32 AM LABOR RELATIONS SPECIALIST 10/24/2023 8:59 AM LABOR RELATIONS SPECIALIST us Veronica MESA LAB BLOOD ORDERABLES Fi nal Result Performing Organization Address City/[facility]/ZIP Co de Phone Number [facility] Department [place] [address] * POCT glucose (10/24/2023 7:31 AM LABOR RELATIONS SPECIALIST) [facility] Glucose, POC 111 70 - 199 mg/dL [facility] Blood 10/24/2023 7:31 AM LABOR RELATIONS SPECIALIST 10/24/2023 7:31 AM LABOR RELATIONS SPECIALIST us Hayder Vu Jr., MD LAB POCT ORDERABLES - DEVICE Final Result Performing Organization Address City/[facility]/ZIP Co de Phone Number [facility] Department [place] [address] * Critical Care (10/24/2023 6:48 AM LABOR RELATIONS SPECIALIST) Narrative Avel Bourne MD - 10/24/2023 6:48 AM LABOR RELATIONS SPECIALIST Rob Langley NP ? 10/24/2023 ??5:31 PM [...] life-threatening deterioration of the following conditions: ?? Rob Langley NP IN CLINIC/BEDS ADELE ORDERABLES Final Result * aPTT (10/24/2023 5:38 AM LABOR RELATIONS SPECIALIST) aPTT 30 28 - 38 sec [facility] Comment: Interpretive Data Heparin therapeutic range: 66.0 - 100.0 seconds. Range based on correlation with therapeutic heparin activity range of 0.3 - 0.7 Units/mL. Current interpretive data was last revised on 2023. Blood 10/24/2023 5:38 AM LABOR RELATIONS SPECIALIST 10/24/2023 5:43 AM LABOR RELATIONS SPECIALIST Narrative [facility] - 10/24/2023 6:06 AM LABOR RELATIONS SPECIALIST Draw STAT PTT 6 hrs after initiation of heparin infusion, draw STAT PTT 6 hours after each dose change, and every 6 hours until 2 consecutive PTTs are within therapeutic range. Once two consecutive PTT's are therapeutic (66-100 seconds), then draw PTT every AM until heparin is discontinued. Hayder Vu Jr., MD LAB BLOOD ORDERABLE S Final Result [facility] Department [place] [address] * (ABNORMAL) Troponin I high-sensitivity 2-hour (10/24/2023 5:38 AM LABOR RELATIONS SPECIALIST) Trop I hs 195(H) <=35 ng/L [facility] Comment: Previous critical value noted within 48 hours ago. Interpretive Data For further hscTnI resources including the diagnostic algorithm and an aid in interpretation, copy and paste this link: https://bjhlab.testcatalog.org/show/hsTrop-1 Current Interpretive Data last revised 2020. Trop I hs pct delta -5 % [facility] Comment:Previous critical va lue noted within 48 hours ago. Trop I hs interp Equivocal [facility] Comment:Previous critical va lue noted within 48 hours ago. Blood 10/24/2023 5:38 AM LABOR RELATIONS SPECIALIST 10/24/2023 5:43 AM LABOR RELATIONS SPECIALIST us Hayder Vu Jr., MD LAB BLOOD ORDERABLE S Final Result [facility] Department [place] [address] * EEG (10/24/2023 5:02 AM LABOR RELATIONS SPECIALIST) Anatomical Region Laterality Modality EEG Narrative 10/24/2023 4:40 PM LABOR RELATIONS SPECIALIST Routine EEG Report Patient Name: Hira Evans [facility] Medical Record Number (MRN): [id number] [facility] Record: [id number] Date of (): 1950 EEG Date: 10/24/2023 [...] 32 channel EEG recording acquired on a [employer] EEG-1200 acquisition system. Scalp electrodes were placed [...] intent. Signing Attending: Tyrone Holguin MD PhD us Hayder Vu Jr., MD NEUROLOGY ORDERABLE S Final Result * ECG 12 lead (10/24/2023 3:44 AM LABOR RELATIONS SPECIALIST) Ventricular Rate EKG/Min 82 BPM [facility] Atrial Rate 82 BPM [facility] SD-Interval (MSEC) 166 ms [facility] QRS-Interval (MSEC) 78 ms [facility] QT-Interval (MSEC) 384 ms [facility] QTc 448 ms [facility] P Alpine 34 degrees [facility] R Alpine -30 degrees [facility] T Alpine -13 degrees [facility] Diagnosis Normal sinus rhythm Left axis deviation Nonspecific ST abnormality Abnormal ECG No previous ECGs available Confirmed by ELLA LASSITER M.D ([id number]) on 10/25/2023 1:12:26 PM [facility] 10/24/2023 3:44 AM LABOR RELATIONS SPECIALIST 10/25/2023 1:12 PM LABOR RELATIONS SPECIALIST us Tia Nolan NP ECG ORDERABLES Final Result [facility] * Critical result callback Cardio chemistry (10/24/2023 3:38 AM LABOR RELATIONS SPECIALIST) Date Notified [id number] [facility] Time Notified 451 [facility] Test name Trop I hs [facility] Called/Read Back Edwige Porras [facility] Credentials RN [facility] Called By JO [facility] Blood 10/24/2023 3:38 AM LABOR RELATIONS SPECIALIST 10/24/2023 4:02 AM LABOR RELATIONS SPECIALIST Hayder Vu Jr., MD LAB BLOOD ORDERABLE S Final Result Performing Organization Address City/[facility] Co de Phone Number [facility] Department [place] [address] * (ABNORMAL) Troponin I high-sensitivity series (baseline, 2hr, 4hr, 6hr) (10/24/2023 3:38 AM LABOR RELATIONS SPECIALIST) Pathologist [facility] Trop I hs 206(C) <=35 ng/L [facility] Comment: reviewed Interpretive Data For further hscTnI resources including the diagnostic algorithm and an aid in interpretation, copy and paste this link: https://bjhlab.testcatalog.org/show/hsTrop-1 Current Interpretive Data last revised 2020. Blood 10/24/2023 3:38 AM LABOR RELATIONS SPECIALIST 10/24/2023 4:02 AM LABOR RELATIONS SPECIALIST Hayder Vu Jr., MD LAB BLOOD ORDERABLE S Final Result [facility] Department [place] [address] * Lactate (10/24/2023 3:38 AM LABOR RELATIONS SPECIALIST) Pathologist [facility] Lactate 0.9 0.7 - 2.0 mmol/L [facility] Blood 10/24/2023 3:38 AM LABOR RELATIONS SPECIALIST 10/24/2023 4:02 AM LABOR RELATIONS SPECIALIST Hayder Vu Jr., MD LAB BLOOD ORDERABLE S Final Result Performing Organization Address [facility] Co de Phone Number [facility] [place] [address] * POCT glucose (10/24/2023 3:25 AM LABOR RELATIONS SPECIALIST) Glucose, POC 180 70 - 199 mg/dL [facility] Blood 10/24/2023 3:25 AM LABOR RELATIONS SPECIALIST 10/24/2023 3:25 AM LABOR RELATIONS SPECIALIST Hayder Vu Jr., MD LAB POCT ORDERABLES - DEVICE Final Result Performing Organization Address [facility] [place] [address] * (ABNORMAL) POCT glucose (10/24/2023 12:20 AM LABOR RELATIONS SPECIALIST) Glucose, POC 252(H) 70 - 199 mg/dL [facility] Blood 10/24/2023 12:2 0 AM LABOR RELATIONS SPECIALIST 10/24/2023 12:20 AM LABOR RELATIONS SPECIALIST Hayder Vu Jr., MD LAB POCT ORDERABLES - DEVICE Final Result Performing Organization Address [facility] Co de Phone Number [facility] [place] [address] * (ABNORMAL) aPTT (10/24/2023 12:20 AM LABOR RELATIONS SPECIALIST) aPTT 27(L) 28 - 38 sec [facility] Comment: Interpretive Data Heparin therapeutic range: 66.0 - 100.0 seconds. Range based on correlation with therapeutic heparin activity range of 0.3 - 0.7 Units/mL. Current interpretive data was last revised on 2023. Blood 10/24/2023 12:2 0 AM LABOR RELATIONS SPECIALIST 10/24/2023 12:31 AM LABOR RELATIONS SPECIALIST Narrative [facility] - 10/24/2023 12:58 AM LABOR RELATIONS SPECIALIST Baseline prior to heparin initiation Hayder Vu Jr., MD LAB BLOOD ORDERABLE S Final Result [facility] Department [place] [address] * (ABNORMAL) CBC without differential (10/24/2023 12:20 AM LABOR RELATIONS SPECIALIST) [facility] WBC 22.9(H) 3.8 - 9.9 K/cumm [facility] Hgb 9.0(L) 13.0 - 17.5 g/dL [facility] Hct 25.4(L) 38.9 - 50.3 % [facility] Plt 366 150 - 400 K/cumm [facility] MPV 10.8 9.1 - 12.3 fL [facility] RBC 2.76(L) 4.30 - 5.80 M/cumm [facility] MCV 92.0 81.3 - 96.4 fL [facility] MCH 32.6 27.1 - 33.3 pg [facility] MCHC 35.4 32.3 - 35.7 g/dL [facility] RDW CV 12.5 11.1 - 14.9 % [facility] RDW SD 41.8 35.7 - 48.1 fL [facility] NRBC abs 0.00 0.00 - 0.01 K/cumm [facility] Blood 10/24/2023 12:2 0 AM LABOR RELATIONS SPECIALIST 10/24/2023 12:45 AM LABOR RELATIONS SPECIALIST Narrative [facility] - 10/24/2023 12:55 AM LABOR RELATIONS SPECIALIST Baseline prior to heparin initiation Hayder Vu Jr., MD LAB BLOOD ORDERABLE S Final Result [facility] Department [place] [address] * Protime-INR (10/24/2023 12:20 AM LABOR RELATIONS SPECIALIST) PT 13.7 10.3 - 13.7 sec [facility] INR 1.20 0.90 - 1.20 [facility] Comment: Interpretive data Oral anticoagulant therapeutic ranges: Venous thromboembolism prophylaxis or treatment: 2.0-3.0 CARDIOLOGY Standard range: 2.0-3.0 High-intensity range: 2.5-3.5 Refer to indication-specific guidelines for appropriate target ranges for prosthetic heart valve replacement. Current interpretive data was last revised on 2019. Blood 10/24/2023 12:2 0 AM LABOR RELATIONS SPECIALIST 10/24/2023 12:31 AM LABOR RELATIONS SPECIALIST Narrative [facility] - 10/24/2023 12:58 AM LABOR RELATIONS SPECIALIST Baseline prior to heparin initiation Hayder Vu Jr., MD LAB BLOOD ORDERABLE S Final Result Performing Organization Address City/[facility] Co de Phone Number [facility] [place] [address] * HIV 1/2 Antibody plus p24 Antigen Blood (10/24/2023 12:20 AM LABOR RELATIONS SPECIALIST) HIV 1/2 ab + p24 ag Nonreactive Nonreactive [facility] Comment:Nonreactive for HIV- 1 antigen and HIV-1/HIV-2 antibodies. No laboratory evidence of HIV infection. If acute HIV infection is suspected, consider testing for HIV-1 RNA. Current interpretive data was last revised on 22. Blood 10/24/2023 12:2 0 AM LABOR RELATIONS SPECIALIST 10/24/2023 12:45 AM LABOR RELATIONS SPECIALIST Hayder Vu Jr., MD LAB MICROBIOLOGY - GENERAL ORDERABLES Final Result Performing Organization Address City/[facility]/ZIP Co de Phone Number [facility] [place] [address] * CT Chest PE (CTA) Abdomen Pelvis W Contrast (10/23/2023 11:48 PM LABOR RELATIONS SPECIALIST) Anatomical Region Laterality Modality Body N/A Computed Tomogra phy 10/24/2023 12:1 1 AM LABOR RELATIONS SPECIALIST Impressions 10/24/2023 7:15 AM LABOR RELATIONS SPECIALIST 1. ??Acute pulmonary emboli involving the distal [...] on 10/24/2023 at 00:11 Dictated by: Ra hZu MD, PHD The radiology attending physician has personally reviewed this study, and had reviewed and/or edited this written report and agrees with it. Electronically signed by: Clemente Mathew M.D. Narrative 10/24/2023 7:15 AM LABOR RELATIONS SPECIALIST EXAMINATION: CT CHEST PE (CTA) ABDOMEN PELVIS [...] CT Head WO Contrast (10/23/2023 11:48 PM LABOR RELATIONS SPECIALIST) Anatomical Region Laterality Modality Head and Neck N/A Computed Tomogra phy 10/24/2023 12:3 6 AM LABOR RELATIONS SPECIALIST Impressions 10/24/2023 11:45 AM LABOR RELATIONS SPECIALIST Subtle white matter hypoattenuation with loss of [...] Zac Mcgarry M.D. Narrative 10/24/2023 11:45 AM LABOR RELATIONS SPECIALIST EXAMINATION: CT head without contrast HISTORY: 73-year-old [...] Zac Mcgarry M.D. Hayder Vu Jr., MD IMG CT PROCEDURES F inal Result * Critical Care (10/23/2023 11:47 PM LABOR RELATIONS SPECIALIST) Narrative Wilder Arceo Jr., MD - 10/23/2023 11:47 PM LABOR RELATIONS SPECIALIST Wilder Arceo Jr., MD ? 10/24/2023 ??3:28 [...] * (ABNORMAL) Manual Differential (10/23/2023 11:03 PM LABOR RELATIONS SPECIALIST) Differential Auto [facility] Neutrophil abs 23.5(H) 1.5 - 6.5 K/cumm [facility] Imm gran abs 0.9(H) 0.0 - 0.1 K/cumm [facility] Lymphocyte abs 1.1 0.8 - 3.3 K/cumm [facility] Monocyte abs 1.1(H) 0.2 - 0.8 K/cumm [facility] Eosinophil abs 0.1 0.0 - 0.5 K/cumm [facility] Basophil abs 0.1 0.0 - 0.1 K/cumm [facility] Neutrophil pct 88.2 % [facility] Comment: Interpretive Data Percent cell count reference ranges are not reported, since discordance with absolute values may lead to misinterpretation of CBC data. Current Interpretive Data was last revised on 2018. Imm gran pct 3.4 % [facility] Comment: Interpretive Data Percent cell count reference ranges are not reported, since discordance with absolute values may lead to misinterpretation of CBC data. Current Interpretive Data was last revised on 2018. Lymphocyte pct 3.9 % [facility] Comment: Interpretive Data Percent cell count reference ranges are not reported, since discordance with absolute values may lead to misinterpretation of CBC data. Current Interpretive Data was last revised on 2018. Monocyte pct 3.9 % [facility] Comment: Interpretive Data Percent cell count reference ranges are not reported, since discordance with absolute values may lead to misinterpretation of CBC data. Current Interpretive Data was last revised on 2018. Eosinophil pct 0.2 % [facility] Comment: Interpretive Data Percent cell count reference ranges are not reported, since discordance with absolute values may lead to misinterpretation of CBC data. Current Interpretive Data was last revised on 2018. Basophil pct 0.4 % [facility] Comment: Interpretive Data Percent cell count reference ranges are not reported, since discordance with absolute values may lead to misinterpretation of CBC data. Current Interpretive Data was last revised on 2018. RBC morphology Present(A) [facility] Polychromasia 3-7/HPF(A) [facility] Poikilocytosis Slight(A) [facility] Platelet estimate Adequate [facility] Blood 10/23/2023 11:0 3 PM LABOR RELATIONS SPECIALIST 10/23/2023 11:43 PM LABOR RELATIONS SPECIALIST Jimenez Henao MD LAB BLOOD ORDERABLES Final Result [facility] Department [place] [address] * (ABNORMAL) Differential, auto (10/23/2023 11:03 PM LABOR RELATIONS SPECIALIST) Neutrophil abs 23.5(H) 1.5 - 6.5 K/cumm [facility] Imm gran abs 0.9(H) 0.0 - 0.1 K/cumm [facility] Lymphocyte abs 1.1 0.8 - 3.3 K/cumm [facility] Monocyte abs 1.1(H) 0.2 - 0.8 K/cumm [facility] Eosinophil abs 0.1 0.0 - 0.5 K/cumm [facility] Basophil abs 0.1 0.0 - 0.1 K/cumm [facility] Neutrophil pct 88.2 % [facility] Comment: Interpretive Data Percent cell count reference ranges are not reported, since discordance with absolute values may lead to misinterpretation of CBC data. Current Interpretive Data was last revised on 2018. Imm gran pct 3.4 % [facility] Comment: Interpretive Data Percent cell count reference ranges are not reported, since discordance with absolute values may lead to misinterpretation of CBC data. Current Interpretive Data was last revised on 2018. Lymphocyte pct 3.9 % [facility] Comment: Interpretive Data Percent cell count reference ranges are not reported, since discordance with absolute values may lead to misinterpretation of CBC data. Current Interpretive Data was last revised on 2018. Monocyte pct 3.9 % [facility] Comment: Interpretive Data Percent cell count reference ranges are not reported, since discordance with absolute values may lead to misinterpretation of CBC data. Current Interpretive Data was last revised on 2018. Eosinophil pct 0.2 % [facility] Comment: Interpretive Data Percent cell count reference ranges are not reported, since discordance with absolute values may lead to misinterpretation of CBC data. Current Interpretive Data was last revised on 2018. Basophil pct 0.4 % [facility] Comment: Interpretive Data Percent cell count reference ranges are not reported, since discordance with absolute values may lead to misinterpretation of CBC data. Current Interpretive Data was last revised on 2018. Blood 10/23/2023 11:0 3 PM LABOR RELATIONS SPECIALIST 10/23/2023 11:11 PM LABOR RELATIONS SPECIALIST us Jimenez Henao MD LAB BLOOD ORDERABLES Final Result [facility] Department [place] [address] * (ABNORMAL) Blood gas, arterial (10/23/2023 11:03 PM LABOR RELATIONS SPECIALIST) pH, Art 7.38 7.35 - 7.45 [facility] PCO2, Arterial 37 35 - 45 mmHg [facility] PO2, Arterial 133(H) 83 - 108 mmHg [facility] HCO3 Art (Calculated) 22 20 - 30 mmol/L [facility] BE, art -3 mmol/L [facility] Comment: Interpretive Data No Reference Range Established Current Interpretive Data was last revised on 2017 O2 Sat Art (Measured) 99(H) 90 - 95 % [facility] Blood 10/23/2023 11:0 3 PM LABOR RELATIONS SPECIALIST 10/23/2023 11:10 PM LABOR RELATIONS SPECIALIST Hayder Vu Jr., MD LAB BLOOD ORDERABLE S Final Result Performing Organization Address [facility] Co de Phone Number [facility] [place] [address] * (ABNORMAL) Calcium, ionized (10/23/2023 11:03 PM LABOR RELATIONS SPECIALIST) Pathologist [facility] Calcium, Ionized 4.41(L) 4.50 - 5.10 mg/dL [facility] Blood 10/23/2023 11:0 3 PM LABOR RELATIONS SPECIALIST 10/23/2023 11:13 PM LABOR RELATIONS SPECIALIST Hayder Vu Jr., MD LAB BLOOD ORDERABLE S Final Result Performing Organization Address [facility] de Phone Number [facility] [place] [address] * (ABNORMAL) CBC with auto differential (10/23/2023 11:03 PM LABOR RELATIONS SPECIALIST) Pathologist [facility] WBC 26.7(H) 3.8 - 9.9 K/cumm [facility] Hgb 9.0(L) 13.0 - 17.5 g/dL [facility] Hct 27.3(L) 38.9 - 50.3 % [facility] Plt 418(H) 150 - 400 K/cumm [facility] MPV 11.3 9.1 - 12.3 fL [facility] RBC 2.88(L) 4.30 - 5.80 M/cumm [facility] MCV 94.8 81.3 - 96.4 fL [facility] Comment:MCV delta due to manpreet gical procedure. Spoke to Edwige Porras RN. MCH 31.3 27.1 - 33.3 pg [facility] MCHC 33.0 32.3 - 35.7 g/dL [facility] RDW CV 12.4 11.1 - 14.9 % [facility] RDW SD 43.5 35.7 - 48.1 fL [facility] NRBC abs 0.00 0.00 - 0.01 K/cumm [facility] Blood 10/23/2023 11:0 3 PM LABOR RELATIONS SPECIALIST 10/23/2023 11:11 PM LABOR RELATIONS SPECIALIST us Tia Nolan PROOF TECHNICIAN LAB BLOOD ORDERABLES E dited Result - Final [facility] Department [place] [address] * (ABNORMAL) Lipid panel (10/23/2023 11:02 PM LABOR RELATIONS SPECIALIST) Cholesterol 162 30 - 199 mg/dL [facility] Comment: Interpretive Data Ages < or [...] revised on 2018. Triglycerides 134 <=149 mg/dL [facility] Comment: Interpretive Data Ages < or [...] on 2018. HDL 34(L) >=40 mg/dL [facility] Comment: Interpretive Data Ages < or [...] 2018. LDL, calculated 101 <=129 mg/dL [facility] Comment: Interpretive Data Ages [...] revised on 2018. Non-HDL Cholesterol 128 mg/dL [facility] Comment: Interpretive Data Ages < or [...] last revised on 2018. Chol/HDL ratio 5 [facility] Blood 10/23/2023 11:0 2 PM LABOR RELATIONS SPECIALIST 10/23/2023 11:14 PM LABOR RELATIONS SPECIALIST Narrative [facility] - 10/24/2023 11:06 AM LABOR RELATIONS SPECIALIST This lipid panel was automatically ordered due to a significant change in Troponin. The dietary status of the patient at the collection time should be correlated with the lipid results. us Hayder Vu Jr., MD LAB BLOOD ORDERABLE S Final Result Performing Organization Address City/State/[facility] Co de Phone Number [facility] Department [place] [address] * eGFR (10/23/2023 11:02 PM LABOR RELATIONS SPECIALIST) Pathologist [facility] eGFR 74 >=60 mL/min/1. 73 m2 [facility] Comment: Interpretive Data Reference Interval [...] reviewed 2021. Blood 10/23/2023 11:0 2 PM LABOR RELATIONS SPECIALIST 10/23/2023 11:14 PM LABOR RELATIONS SPECIALIST us Hayder Vu Jr., MD LAB BLOOD ORDERABLE S Final Result Performing Organization Address City/[facility] Co de Phone Number [facility] Department [place] [address] * (ABNORMAL) Phosphorus (10/23/2023 11:02 PM LABOR RELATIONS SPECIALIST) Phosphorus, pl 4.6(H) 2.3 - 4.5 mg/dL [facility] Blood 10/23/2023 11:0 2 PM LABOR RELATIONS SPECIALIST 10/23/2023 11:13 PM LABOR RELATIONS SPECIALIST Hayder Vu Jr., MD LAB BLOOD ORDERABLE S Final Result Performing Organization Address City/[facility]/ZIP Co de Phone Number [facility] Department [place] [address] * Magnesium (10/23/2023 11:02 PM LABOR RELATIONS SPECIALIST) Magnesium 2.0 1.4 - 2.5 mg/dL [facility] Blood 10/23/2023 11:0 2 PM LABOR RELATIONS SPECIALIST 10/23/2023 11:13 PM LABOR RELATIONS SPECIALIST Hayder Vu Jr., MD LAB BLOOD ORDERABLE S Final Result [facility] Department [place] [address] * (ABNORMAL) Comprehensive metabolic panel (10/23/2023 11:02 PM LABOR RELATIONS SPECIALIST) Pathologist [facility] Sodium 137 135 - 145 mmol/L [facility] Potassium, pl 4.1 3.3 - 4.9 mmol/L [facility] Chloride 102 97 - 110 mmol/L [facility] CO2 23 22 - 32 mmol/L [facility] [facility] Anion gap 12 2 - 15 mmol/L [facility] BUN 12 6 - 25 mg/dL [facility] Creatinine 1.07 0.80 - 1.30 mg/dL [facility] Glucose 245(H) 70 - 199 mg/dL [facility] Comment: Interpretive Data Fasting glucose [...] 2022. Calcium 8.3(L) 8.5 - 10.3 mg/dL [facility] Bilirubin, total 0.6 0.1 - 1.2 mg/dL [facility] Protein, pl 5.9(L) 6.5 - 8.5 g/dL [facility] Albumin 2.6(L) 3.5 - 5.0 g/dL [facility] Alk phos 91 40 - 130 Units/L [facility] ALT 88(H) 7 - 55 Units/L [facility] AST 83(H) 10 - 50 Units/L [facility] Blood 10/23/2023 11:0 2 PM LABOR RELATIONS SPECIALIST 10/23/2023 11:13 PM LABOR RELATIONS SPECIALIST Hayder Vu Jr., MD LAB BLOOD ORDERABLE S Final Result Performing Organization Address [facility] de Phone Number [facility] [place] [address] * (ABNORMAL) aPTT (10/23/2023 11:02 PM LABOR RELATIONS SPECIALIST) aPTT 25(L) 28 - 38 sec [facility] Comment: Interpretive Data Heparin therapeutic range: 66.0 - 100.0 seconds. Range based on correlation with therapeutic heparin activity range of 0.3 - 0.7 Units/mL. Current interpretive data was last revised on 2023. Blood 10/23/2023 11:0 2 PM LABOR RELATIONS SPECIALIST 10/23/2023 11:58 PM LABOR RELATIONS SPECIALIST Oneyda Foley NP LAB BLOOD ORDERABLES Final Res ult Performing Organization Address [facility] de Phone Number [facility] [place] [address] * (ABNORMAL) Protime-INR (10/23/2023 11:02 PM LABOR RELATIONS SPECIALIST) PT 13.9(H) 10.3 - 13.7 sec [facility] INR 1.22(H) 0.90 - 1.20 [facility] Comment: Interpretive data Oral anticoagulant therapeutic ranges: Venous thromboembolism prophylaxis or treatment: 2.0-3.0 CARDIOLOGY Standard range: 2.0-3.0 High-intensity range: 2.5-3.5 Refer to indication-specific guidelines for appropriate target ranges for prosthetic heart valve replacement. Current interpretive data was last revised on 2019. Blood 10/23/2023 11:0 2 PM LABOR RELATIONS SPECIALIST 10/23/2023 11:58 PM LABOR RELATIONS SPECIALIST us Oneyda Foley PROOF TECHNICIAN LAB BLOOD ORDERABLES Final Res ult [facility] Department [place] [address] * (ABNORMAL) POC Blood Gas and Chemistries, Arterial - (10/23/2023 10:39 PM LABOR RELATIONS SPECIALIST) Pathologist [facility] pH, Art POC 7.37 7.35 - 7.45 [facility] pCO2, Art POC 38 35 - 45 mmHg [facility] pO2, Art POC 137(H) 83 - 108 mmHg [facility] Na, POC 137 135 - 145 mmol/L [facility] K POC 4.0 3.3 - 4.9 mmol/L [facility] Comment: Interpretive Data This method is not able to assess for hemolysis, which may falsely increase potassium concentrations. If further testing is needed to evaluate this result, consider in-laboratory plasma potassium. Current Interpretive Data was last revised on 2022. Cl, POC 107 97 - 110 mmol/L [facility] Ionized Ca, POC 4.58 4.50 - 5.10 mg/dL [facility] Glucose, POC 247(H) 70 - 199 mg/dL [facility] Lactate, POC 4.6(C) 0.7 - 2.2 mmol/L [facility] SO2 (crys) arterial 100(H) 90 - 95 % [facility] Base excess, POC -3.0 mmol/L [facility] HCO3, Art POC 22 20 - 30 mmol/L [facility] Hct, POC 28.0(L) 41.4 - 51.6 % [facility] O2 Sat, Art POC (Calc) 99 % [facility] Total Hb, POC 9.2(L) 13.8 - 17.2 g/dL [facility] Blood 10/23/2023 10:3 9 PM LABOR RELATIONS SPECIALIST 10/23/2023 10:39 PM LABOR RELATIONS SPECIALIST us Hayder Vu Jr., MD LAB POCT ORDERABLES - DEVICE Final Result [facility] Department [place] [address] * (ABNORMAL) POC Blood Gas and Chemistries, Arterial - (10/23/2023 10:07 PM LABOR RELATIONS SPECIALIST) pH, Art POC 7.12(C) 7.35 - 7.45 [facility] pCO2, Art POC 54(H) 35 - 45 mmHg [facility] pO2, Art POC 287(H) 83 - 108 mmHg [facility] Na, POC 137 135 - 145 mmol/L [facility] K POC 4.0 3.3 - 4.9 mmol/L [facility] Comment: Interpretive Data This method is not able to assess for hemolysis, which may falsely increase potassium concentrations. If further testing is needed to evaluate this result, consider in-laboratory plasma potassium. Current Interpretive Data was last revised on 2022. Cl, POC 104 97 - 110 mmol/L [facility] Ionized Ca, POC 4.67 4.50 - 5.10 mg/dL [facility] Glucose, POC 235(H) 70 - 199 mg/dL [facility] Lactate, POC 7.2(C) 0.7 - 2.2 mmol/L [facility] SO2 (crys) arterial 100(H) 90 - 95 % [facility] Base excess, POC -11.4 mmol/L [facility] HCO3, Art POC 16(L) 20 - 30 mmol/L [facility] Hct, POC 29.0(L) 41.4 - 51.6 % [facility] O2 Sat, Art POC (Calc) 100 % [facility] Total Hb, POC 9.5(L) 13.8 - 17.2 g/dL [facility] Blood 10/23/2023 10:0 7 PM LABOR RELATIONS SPECIALIST 10/23/2023 10:07 PM LABOR RELATIONS SPECIALIST us Pipe Moseley MD LAB POCT ORDERABLES - DEV ICE Final Result [facility] Department [place] [address] * eGFR (10/23/2023 9:52 PM LABOR RELATIONS SPECIALIST) Pathologist [facility] eGFR 75 >=60 mL/min/1. 73 m2 [facility] Comment: Interpretive Data Reference Interval [...] last reviewed 2021. Blood 10/23/2023 9:52 PM LABOR RELATIONS SPECIALIST 10/23/2023 10:01 PM LABOR RELATIONS SPECIALIST us Myke Smith MD PhD LAB BLOOD ORDERA BLES Final Result [facility] Department [place] [address] * (ABNORMAL) Basic metabolic panel (10/23/2023 9:52 PM LABOR RELATIONS SPECIALIST) Sodium 143 135 - 145 mmol/L [facility] Potassium, pl 3.8 3.3 - 4.9 mmol/L [facility] Chloride 102 97 - 110 mmol/L [facility] CO2 20(L) 22 - 32 mmol/L [facility] Anion gap 21(H) 2 - 15 mmol/L [facility] BUN 12 6 - 25 mg/dL [facility] Creatinine 1.06 0.80 - 1.30 mg/dL [facility] Glucose 208(H) 70 - 199 mg/dL [facility] Comment: Interpretive Data Fasting glucose [...] 2022. Calcium 8.9 8.5 - 10.3 mg/dL [facility] Blood 10/23/2023 9:52 PM LABOR RELATIONS SPECIALIST 10/23/2023 10:01 PM LABOR RELATIONS SPECIALIST Myke Smith MD PhD LAB BLOOD ORDERA BLES Final Result [facility] Department [place] [address] * (ABNORMAL) CBC without differential (10/23/2023 9:52 PM LABOR RELATIONS SPECIALIST) [facility] WBC 23.8(H) 3.8 - 9.9 K/cumm [facility] Hgb 9.8(L) 13.0 - 17.5 g/dL [facility] Hct 32.0(L) 38.9 - 50.3 % [facility] Plt 458(H) 150 - 400 K/cumm [facility] MPV 11.1 9.1 - 12.3 fL [facility] RBC 3.14(L) 4.30 - 5.80 M/cumm [facility] MCV 101.9(H) 81.3 - 96.4 fL [facility] Comment:MCV delta due to manpreet gical procedure. MCH 31.2 27.1 - 33.3 pg [facility] MCHC 30.6(L) 32.3 - 35.7 g/dL [facility] RDW CV 12.5 11.1 - 14.9 % [facility] RDW SD 46.9 35.7 - 48.1 fL [facility] NRBC abs 0.03(H) 0.00 - 0.01 K/cumm [facility] Blood 10/23/2023 9:52 PM LABOR RELATIONS SPECIALIST 10/23/2023 10:02 PM LABOR RELATIONS SPECIALIST us Myke Smith MD PhD LAB BLOOD ORDERA BLES Final Result [facility] Department [place] [address] * (ABNORMAL) POC Blood Gas and Chemistries, Venous - (10/23/2023 9:50 PM LABOR RELATIONS SPECIALIST) pH, Arturo POC 6.99(C) 7.32 - 7.43 [facility] pCO2, arturo POC 84(C) 40 - 50 mmHg [facility] pO2, arturo POC 42 mmHg [facility] Na, POC 139 135 - 145 mmol/L [facility] K POC 5.4(H) 3.3 - 4.9 mmol/L [facility] Comment: Interpretive Data This method is not able to assess for hemolysis, which may falsely increase potassium concentrations. If further testing is needed to evaluate this result, consider in-laboratory plasma potassium. Current Interpretive Data was last revised on 2022. Cl, POC 103 97 - 110 mmol/L [facility] Ionized Ca, POC 4.70 4.50 - 5.10 mg/dL [facility] Glucose, POC 172 70 - 199 mg/dL [facility] Lactate, POC 9.2(C) 0.7 - 2.2 mmol/L [facility] O2 Sat, Arturo POC (Crys) 48 % [facility] Base excess, POC -11.7 mmol/L [facility] Hct, POC 30.0(L) 41.4 - 51.6 % [facility] Total Hb, POC 10.0(L) 13.8 - 17.2 g/dL [facility] O2 Sat, Arturo POC (Calc) 48 % [facility] Blood 10/23/2023 9:50 PM LABOR RELATIONS SPECIALIST 10/23/2023 9:50 PM LABOR RELATIONS SPECIALIST us Pipe Moseley MD LAB POCT ORDERABLES - DEV ICE Final Result Performing Organization Address [facility] Co de Phone Number [facility] Department [place] [address] * [place] Fluoroscopy < 1 Hour (10/23/2023 8:45 PM LABOR RELATIONS SPECIALIST) Narrative [facility] - 10/23/2023 8:46 PM LABOR RELATIONS SPECIALIST The images from this study are not interpreted by Radiology. ??Please refer to the physician's procedure / OR operative note. us Hayder Vu Jr., MD IMG FLUOROSCOPY PRO CEDURES Final Result Performing Organization Address [facility] de Phone Number [email or web address] * eGFR (10/22/2023 9:39 PM LABOR RELATIONS SPECIALIST) eGFR 66 >=60 mL/min/1. 73 m2 [facility] Comment: Interpretive Data Reference Interval [...] last reviewed 2021. Blood 10/22/2023 9:39 PM LABOR RELATIONS SPECIALIST 10/22/2023 10:23 PM LABOR RELATIONS SPECIALIST us Jimenez Henao MD LAB BLOOD ORDERABLES Final Result [facility] Department [place] [address] * (ABNORMAL) Differential, auto (10/22/2023 9:39 PM LABOR RELATIONS SPECIALIST) Neutrophil abs 6.2 1.5 - 6.5 K/cumm [facility] Imm gran abs 0.1 0.0 - 0.1 K/cumm [facility] Lymphocyte abs 1.3 0.8 - 3.3 K/cumm [facility] Monocyte abs 1.1(H) 0.2 - 0.8 K/cumm [facility] Eosinophil abs 0.1 0.0 - 0.5 K/cumm [facility] Basophil abs 0.1 0.0 - 0.1 K/cumm [facility] Neutrophil pct 70.2 % [facility] Comment: Interpretive Data Percent cell count reference ranges are not reported, since discordance with absolute values may lead to misinterpretation of CBC data. Current Interpretive Data was last revised on 2018. Imm gran pct 1.0 % [facility] Comment: Interpretive Data Percent cell count reference ranges are not reported, since discordance with absolute values may lead to misinterpretation of CBC data. Current Interpretive Data was last revised on 2018. Lymphocyte pct 14.4 % [facility] Comment: Interpretive Data Percent cell count reference ranges are not reported, since discordance with absolute values may lead to misinterpretation of CBC data. Current Interpretive Data was last revised on 2018. Monocyte pct 12.4 % [facility] Comment: Interpretive Data Percent cell count reference ranges are not reported, since discordance with absolute values may lead to misinterpretation of CBC data. Current Interpretive Data was last revised on 2018. Eosinophil pct 1.4 % [facility] Comment: Interpretive Data Percent cell count reference ranges are not reported, since discordance with absolute values may lead to misinterpretation of CBC data. Current Interpretive Data was last revised on 2018. Basophil pct 0.6 % [facility] Comment: Interpretive Data Percent cell count reference ranges are not reported, since discordance with absolute values may lead to misinterpretation of CBC data. Current Interpretive Data was last revised on 2018. Blood 10/22/2023 9:39 PM LABOR RELATIONS SPECIALIST 10/22/2023 10:17 PM LABOR RELATIONS SPECIALIST us Jimenez Henao MD LAB BLOOD ORDERABLES Final Result Performing Organization Address [facility] Co de Phone Number [facility] Department [place] [address] * Type and screen (10/22/2023 9:39 PM LABOR RELATIONS SPECIALIST) Jigna, indirect Negative ABO Rh O Positive [facility] Blood 10/22/2023 9:39 PM LABOR RELATIONS SPECIALIST 10/22/2023 10:24 PM LABOR RELATIONS SPECIALIST Narrative [facility] - 10/22/2023 11:35 PM LABOR RELATIONS SPECIALIST Has the patient had Daratumumab or Isatuximab in the past 6 months?->Unknown us Jimenez Henao MD LAB BLOOD BANK TEST O RDERABLES Final Result Performing Organization Address [facility]/ZIP Co de Phone Number [facility] Department [place] [address] * Protime-INR (10/22/2023 9:39 PM LABOR RELATIONS SPECIALIST) [facility] PT 12.6 10.3 - 13.7 sec [facility] INR 1.11 0.90 - 1.20 [facility] Comment: Interpretive data Oral anticoagulant therapeutic ranges: Venous thromboembolism prophylaxis or treatment: 2.0-3.0 CARDIOLOGY Standard range: 2.0-3.0 High-intensity range: 2.5-3.5 Refer to indication-specific guidelines for appropriate target ranges for prosthetic heart valve replacement. Current interpretive data was last revised on 2019. Blood 10/22/2023 9:39 PM LABOR RELATIONS SPECIALIST 10/22/2023 10:26 PM LABOR RELATIONS SPECIALIST Jimenez Henao MD LAB BLOOD ORDERABLES Final Result [facility] Department [place] [address] * (ABNORMAL) CBC with auto differential (10/22/2023 9:39 PM LABOR RELATIONS SPECIALIST) [facility] WBC 8.8 3.8 - 9.9 K/cumm [facility] Hgb 10.5(L) 13.0 - 17.5 g/dL [facility] Hct 30.7(L) 38.9 - 50.3 % [facility] Plt 378 150 - 400 K/cumm [facility] MPV 10.6 9.1 - 12.3 fL [facility] RBC 3.29(L) 4.30 - 5.80 M/cumm [facility] MCV 93.3 81.3 - 96.4 fL [facility] MCH 31.9 27.1 - 33.3 pg [facility] MCHC 34.2 32.3 - 35.7 g/dL [facility] RDW CV 12.4 11.1 - 14.9 % [facility] RDW SD 43.1 35.7 - 48.1 fL [facility] NRBC abs 0.00 0.00 - 0.01 K/cumm [facility] Blood 10/22/2023 9:39 PM LABOR RELATIONS SPECIALIST 10/22/2023 10:17 PM LABOR RELATIONS SPECIALIST Tia Nolan PROOF TECHNICIAN LAB BLOOD ORDERABLES F inal Result [facility] Department [place] [address] * (ABNORMAL) Basic metabolic panel (10/22/2023 9:39 PM LABOR RELATIONS SPECIALIST) Pathologist [facility] Sodium 134(L) 135 - 145 mmol/L [facility] Potassium, pl 4.6 3.3 - 4.9 mmol/L [facility] Chloride 99 97 - 110 mmol/L [facility] CO2 30 22 - 32 mmol/L [facility] Anion gap 5 2 - 15 mmol/L [facility] BUN 12 6 - 25 mg/dL [facility] Creatinine 1.17 0.80 - 1.30 mg/dL [facility] Glucose 121 70 - 199 mg/dL [facility] Comment: Interpretive Data Fasting glucose [...] 2022. Calcium 8.8 8.5 - 10.3 mg/dL [facility] Blood 10/22/2023 9:39 PM LABOR RELATIONS SPECIALIST 10/22/2023 10:23 PM LABOR RELATIONS SPECIALIST Tia Nolan NP LAB BLOOD ORDERABLES F inal Result Performing Organization Address [facility]/ZIP Co de Phone Number [facility] Department [place] [address] * XR Chest 1 View (10/22/2023 6:24 AM LABOR RELATIONS SPECIALIST) Anatomical Region Laterality Modality Body, Chest N/A Computed Radiogr aphy 10/22/2023 8:41 AM LABOR RELATIONS SPECIALIST Impressions 10/22/2023 12:03 PM LABOR RELATIONS SPECIALIST Comparison is made to CT chest abdomen [...] Maritza Miranda M.D. Narrative 10/22/2023 12:03 PM LABOR RELATIONS SPECIALIST EXAMINATION: 1 view chest radiograph Procedure Note [...] it. Electronically signed by: Maritza Miranda M.D. Mary Thayer MD IMG XR PROCEDURES Final Resul t * eGFR (10/21/2023 10:52 PM LABOR RELATIONS SPECIALIST) eGFR 78 >=60 mL/min/1. 73 m2 [facility] Comment: Interpretive Data Reference Interval [...] reviewed 2021. Blood 10/21/2023 10:5 2 PM LABOR RELATIONS SPECIALIST 10/21/2023 11:16 PM LABOR RELATIONS SPECIALIST us Jimenez Henao MD LAB BLOOD ORDERABLES Final Result [facility] Department of Laboratories [place], [place] [id number] * (ABNORMAL) Differential, auto (10/21/2023 10:52 PM LABOR RELATIONS SPECIALIST) Neutrophil abs 5.0 1.5 - 6.5 K/cumm [facility] Imm gran abs 0.1 0.0 - 0.1 K/cumm [facility] Lymphocyte abs 1.4 0.8 - 3.3 K/cumm [facility] Monocyte abs 1.1(H) 0.2 - 0.8 K/cumm [facility] Eosinophil abs 0.1 0.0 - 0.5 K/cumm [facility] Basophil abs 0.0 0.0 - 0.1 K/cumm [facility] Neutrophil pct 65.0 % [facility] Comment: Interpretive Data Percent cell count reference ranges are not reported, since discordance with absolute values may lead to misinterpretation of CBC data. Current Interpretive Data was last revised on 2018. Imm gran pct 1.3 % [facility] Comment: Interpretive Data Percent cell count reference ranges are not reported, since discordance with absolute values may lead to misinterpretation of CBC data. Current Interpretive Data was last revised on 2018. Lymphocyte pct 17.8 % [facility] Comment: Interpretive Data Percent cell count reference ranges are not reported, since discordance with absolute values may lead to misinterpretation of CBC data. Current Interpretive Data was last revised on 2018. Monocyte pct 13.6 % [facility] Comment: Interpretive Data Percent cell count reference ranges are not reported, since discordance with absolute values may lead to misinterpretation of CBC data. Current Interpretive Data was last revised on 2018. Eosinophil pct 1.8 % [facility] Comment: Interpretive Data Percent cell count reference ranges are not reported, since discordance with absolute values may lead to misinterpretation of CBC data. Current Interpretive Data was last revised on 2018. Basophil pct 0.5 % [facility] Comment: Interpretive Data Percent cell count reference ranges are not reported, since discordance with absolute values may lead to misinterpretation of CBC data. Current Interpretive Data was last revised on 2018. Blood 10/21/2023 10:5 2 PM LABOR RELATIONS SPECIALIST 10/21/2023 11:17 PM LABOR RELATIONS SPECIALIST us Jimenez Henao MD LAB BLOOD ORDERABLES Final Result [facility] [place] [address] * (ABNORMAL) CBC with auto differential (10/21/2023 10:52 PM LABOR RELATIONS SPECIALIST) WBC 7.7 3.8 - 9.9 K/cumm [facility] Hgb 10.4(L) 13.0 - 17.5 g/dL [facility] Hct 30.1(L) 38.9 - 50.3 % [facility] Plt 350 150 - 400 K/cumm [facility] MPV 10.8 9.1 - 12.3 fL [facility] RBC 3.31(L) 4.30 - 5.80 M/cumm [facility] MCV 90.9 81.3 - 96.4 fL [facility] MCH 31.4 27.1 - 33.3 pg [facility] MCHC 34.6 32.3 - 35.7 g/dL [facility] RDW CV 12.6 11.1 - 14.9 % [facility] RDW SD 41.8 35.7 - 48.1 fL [facility] NRBC abs 0.00 0.00 - 0.01 K/cumm [facility] Blood 10/21/2023 10:5 2 PM LABOR RELATIONS SPECIALIST 10/21/2023 11:17 PM LABOR RELATIONS SPECIALIST us Tia Nolan PROOF TECHNICIAN LAB BLOOD ORDERABLES F inal Result [facility] Department [place] [address] * Basic metabolic panel (10/21/2023 10:52 PM LABOR RELATIONS SPECIALIST) Sodium 136 135 - 145 mmol/L [facility] Potassium, pl 4.5 3.3 - 4.9 mmol/L [facility] Chloride 99 97 - 110 mmol/L [facility] CO2 27 22 - 32 mmol/L [facility] Anion gap 10 2 - 15 mmol/L [facility] BUN 12 6 - 25 mg/dL [facility] Creatinine 1.02 0.80 - 1.30 mg/dL [facility] Glucose 117 70 - 199 mg/dL [facility] Comment: Interpretive Data Fasting glucose [...] 2022. Calcium 8.7 8.5 - 10.3 mg/dL [facility] Blood 10/21/2023 10:5 2 PM LABOR RELATIONS SPECIALIST 10/21/2023 11:16 PM LABOR RELATIONS SPECIALIST us Tia Nolan PROOF TECHNICIAN LAB BLOOD ORDERABLES F inal Result [facility] Department [place] [address] * eGFR (10/20/2023 9:38 PM LABOR RELATIONS SPECIALIST) eGFR 80 >=60 mL/min/1. 73 m2 [facility] Comment: Interpretive Data Reference Interval [...] last reviewed 2021. Blood 10/20/2023 9:38 PM LABOR RELATIONS SPECIALIST 10/20/2023 10:25 PM LABOR RELATIONS SPECIALIST Jimenez Henao MD LAB BLOOD ORDERABLES Final Result [facility] Department [place] [address] * (ABNORMAL) Differential, auto (10/20/2023 9:38 PM LABOR RELATIONS SPECIALIST) Neutrophil abs 5.9 1.5 - 6.5 K/cumm [facility] Imm gran abs 0.2(H) 0.0 - 0.1 K/cumm [facility] Lymphocyte abs 1.1 0.8 - 3.3 K/cumm [facility] Monocyte abs 1.1(H) 0.2 - 0.8 K/cumm [facility] Eosinophil abs 0.2 0.0 - 0.5 K/cumm [facility] Basophil abs 0.1 0.0 - 0.1 K/cumm [facility] Neutrophil pct 69.2 % [facility] Comment: Interpretive Data Percent cell count reference ranges are not reported, since discordance with absolute values may lead to misinterpretation of CBC data. Current Interpretive Data was last revised on 2018. Imm gran pct 2.3 % [facility] Comment: Interpretive Data Percent cell count reference ranges are not reported, since discordance with absolute values may lead to misinterpretation of CBC data. Current Interpretive Data was last revised on 2018. Lymphocyte pct 13.2 % [facility] Comment: Interpretive Data Percent cell count reference ranges are not reported, since discordance with absolute values may lead to misinterpretation of CBC data. Current Interpretive Data was last revised on 2018. Monocyte pct 12.9 % [facility] Comment: Interpretive Data Percent cell count reference ranges are not reported, since discordance with absolute values may lead to misinterpretation of CBC data. Current Interpretive Data was last revised on 2018. Eosinophil pct 1.8 % [facility] Comment: Interpretive Data Percent cell count reference ranges are not reported, since discordance with absolute values may lead to misinterpretation of CBC data. Current Interpretive Data was last revised on 2018. Basophil pct 0.6 % [facility] Comment: Interpretive Data Percent cell count reference ranges are not reported, since discordance with absolute values may lead to misinterpretation of CBC data. Current Interpretive Data was last revised on 2018. Blood 10/20/2023 9:38 PM LABOR RELATIONS SPECIALIST 10/20/2023 10:25 PM LABOR RELATIONS SPECIALIST us Jimenez Henao MD LAB BLOOD ORDERABLES Final Result [facility] Department [place] [address] * (ABNORMAL) CBC with auto differential (10/20/2023 9:38 PM LABOR RELATIONS SPECIALIST) [facility] WBC 8.5 3.8 - 9.9 K/cumm [facility] Hgb 11.0(L) 13.0 - 17.5 g/dL [facility] Comment: Interpretive Data A reference range for this assay has not been established for patients with an unknown legal sex. Please refer to the laboratory test catalog for established sex-specific reference intervals. Current interpretive data was last revised on 2023. Hct 32.7(L) 38.9 - 50.3 % [facility] Comment: Interpretive Data A reference range for this assay has not been established for patients with an unknown legal sex. Please refer to the laboratory test catalog for established sex-specific reference intervals. Current interpretive data was last revised on 2023. Plt 321 150 - 400 K/cumm [facility] MPV 11.0 9.1 - 12.3 fL [facility] RBC 3.50(L) 4.30 - 5.80 M/cumm [facility] Comment: Interpretive Data A reference range for this assay has not been established for patients with an unknown legal sex. Please refer to the laboratory test catalog for established sex-specific reference intervals. Current interpretive data was last revised on 2023. MCV 93.4 81.3 - 96.4 fL [facility] MCH 31.4 27.1 - 33.3 pg [facility] MCHC 33.6 32.3 - 35.7 g/dL [facility] RDW CV 12.5 11.1 - 14.9 % [facility] RDW SD 43.2 35.7 - 48.1 fL [facility] NRBC abs 0.00 0.00 - 0.01 K/cumm [facility] Blood 10/20/2023 9:38 PM LABOR RELATIONS SPECIALIST 10/20/2023 10:25 PM LABOR RELATIONS SPECIALIST us Tia Nolan PROOF TECHNICIAN LAB BLOOD ORDERABLES F inal Result [facility] Department [place] [address] * (ABNORMAL) Basic metabolic panel (10/20/2023 9:38 PM LABOR RELATIONS SPECIALIST) Sodium 134(L) 135 - 145 mmol/L [facility] Potassium, pl 4.5 3.3 - 4.9 mmol/L [facility] Chloride 97 97 - 110 mmol/L [facility] CO2 27 22 - 32 mmol/L [facility] Anion gap 10 2 - 15 mmol/L [facility] BUN 12 6 - 25 mg/dL [facility] Creatinine 1.00 0.80 - 1.30 mg/dL [facility] Glucose 127 70 - 199 mg/dL [facility] Comment: Interpretive Data Fasting glucose [...] 2022. Calcium 8.9 8.5 - 10.3 mg/dL [facility] Blood 10/20/2023 9:38 PM LABOR RELATIONS SPECIALIST 10/20/2023 10:25 PM LABOR RELATIONS SPECIALIST Tia Nolan PROOF TECHNICIAN LAB BLOOD ORDERABLES F inal Result [facility] Department [place] [address] * eGFR (10/19/2023 9:11 PM LABOR RELATIONS SPECIALIST) eGFR 81 >=60 mL/min/1. 73 m2 [facility] Comment: Interpretive Data Reference Interval [...] last reviewed 2021. Blood 10/19/2023 9:11 PM LABOR RELATIONS SPECIALIST 10/19/2023 11:30 PM LABOR RELATIONS SPECIALIST us Jimenez Henao MD LAB BLOOD ORDERABLES Final Result [facility] Department [place] [address] * (ABNORMAL) Differential, auto (10/19/2023 9:11 PM LABOR RELATIONS SPECIALIST) Neutrophil abs 8.2(H) 1.5 - 6.5 K/cumm [facility] Imm gran abs 0.2(H) 0.0 - 0.1 K/cumm [facility] Lymphocyte abs 0.9 0.8 - 3.3 K/cumm [facility] Monocyte abs 0.8 0.2 - 0.8 K/cumm [facility] Eosinophil abs 0.2 0.0 - 0.5 K/cumm [facility] Basophil abs 0.1 0.0 - 0.1 K/cumm [facility] Neutrophil pct 79.6 % [facility] Comment: Interpretive Data Percent cell count reference ranges are not reported, since discordance with absolute values may lead to misinterpretation of CBC data. Current Interpretive Data was last revised on 2018. Imm gran pct 2.0 % [facility] Comment: Interpretive Data Percent cell count reference ranges are not reported, since discordance with absolute values may lead to misinterpretation of CBC data. Current Interpretive Data was last revised on 2018. Lymphocyte pct 8.3 % [facility] Comment: Interpretive Data Percent cell count reference ranges are not reported, since discordance with absolute values may lead to misinterpretation of CBC data. Current Interpretive Data was last revised on 2018. Monocyte pct 8.0 % [facility] Comment: Interpretive Data Percent cell count reference ranges are not reported, since discordance with absolute values may lead to misinterpretation of CBC data. Current Interpretive Data was last revised on 2018. Eosinophil pct 1.6 % [facility] Comment: Interpretive Data Percent cell count reference ranges are not reported, since discordance with absolute values may lead to misinterpretation of CBC data. Current Interpretive Data was last revised on 2018. Basophil pct 0.5 % [facility] Comment: Interpretive Data Percent cell count reference ranges are not reported, since discordance with absolute values may lead to misinterpretation of CBC data. Current Interpretive Data was last revised on 2018. Blood 10/19/2023 9:11 PM LABOR RELATIONS SPECIALIST 10/19/2023 11:31 PM LABOR RELATIONS SPECIALIST Jimenez Henao MD LAB BLOOD ORDERABLES Final Result [facility] Department [place] [address] * (ABNORMAL) CBC with auto differential (10/19/2023 9:11 PM LABOR RELATIONS SPECIALIST) [facility] WBC 10.3(H) 3.8 - 9.9 K/cumm [facility] Hgb 11.0(L) 13.0 - 17.5 g/dL [facility] Comment: Interpretive Data A reference range for this assay has not been established for patients with an unknown legal sex. Please refer to the laboratory test catalog for established sex-specific reference intervals. Current interpretive data was last revised on 2023. Hct 31.6(L) 38.9 - 50.3 % [facility] Comment: Interpretive Data A reference range for this assay has not been established for patients with an unknown legal sex. Please refer to the laboratory test catalog for established sex-specific reference intervals. Current interpretive data was last revised on 2023. Plt 281 150 - 400 K/cumm [facility] MPV 11.5 9.1 - 12.3 fL [facility] RBC 3.46(L) 4.30 - 5.80 M/cumm [facility] Comment: Interpretive Data A reference range for this assay has not been established for patients with an unknown legal sex. Please refer to the laboratory test catalog for established sex-specific reference intervals. Current interpretive data was last revised on 2023. MCV 91.3 81.3 - 96.4 fL [facility] MCH 31.8 27.1 - 33.3 pg [facility] MCHC 34.8 32.3 - 35.7 g/dL [facility] RDW CV 12.7 11.1 - 14.9 % [facility] RDW SD 42.2 35.7 - 48.1 fL [facility] NRBC abs 0.00 0.00 - 0.01 K/cumm [facility] Blood 10/19/2023 9:11 PM LABOR RELATIONS SPECIALIST 10/19/2023 11:31 PM LABOR RELATIONS SPECIALIST Tia Nolan NP LAB BLOOD ORDERABLES F inal Result [facility] Department [place] [address] * Basic metabolic panel (10/19/2023 9:11 PM LABOR RELATIONS SPECIALIST) Sodium 135 135 - 145 mmol/L [facility] Potassium, pl 4.3 3.3 - 4.9 mmol/L [facility] Chloride 99 97 - 110 mmol/L [facility] CO2 27 22 - 32 mmol/L [facility] Anion gap 9 2 - 15 mmol/L [facility] BUN 17 6 - 25 mg/dL [facility] Creatinine 0.99 0.80 - 1.30 mg/dL [facility] Glucose 185 70 - 199 mg/dL [facility] Comment: Interpretive Data Fasting glucose [...] 2022. Calcium 8.6 8.5 - 10.3 mg/dL [facility] Blood 10/19/2023 9:11 PM LABOR RELATIONS SPECIALIST 10/19/2023 11:30 PM LABOR RELATIONS SPECIALIST Tia Nolan NP LAB BLOOD ORDERABLES F inal Result Performing Organization Address City/[facility]/ZIP Co de Phone Number [facility] Department [place] [address] * eGFR (10/18/2023 9:29 PM LABOR RELATIONS SPECIALIST) eGFR 87 >=60 mL/min/1. 73 m2 [facility] Comment: Interpretive Data Reference Interval [...] last reviewed 2021. Blood 10/18/2023 9:29 PM LABOR RELATIONS SPECIALIST 10/18/2023 10:27 PM LABOR RELATIONS SPECIALIST Jimenez Henao MD LAB BLOOD ORDERABLES Final Result Performing Organization Address City/[facility]/ZIP Co de Phone Number [facility] Department [place] [address] * (ABNORMAL) Differential, auto (10/18/2023 9:29 PM LABOR RELATIONS SPECIALIST) Neutrophil abs 13.6(H) 1.5 - 6.5 K/cumm [facility] Imm gran abs 0.2(H) 0.0 - 0.1 K/cumm [facility] Lymphocyte abs 1.4 0.8 - 3.3 K/cumm [facility] Monocyte abs 1.0(H) 0.2 - 0.8 K/cumm [facility] Eosinophil abs 0.2 0.0 - 0.5 K/cumm [facility] Basophil abs 0.0 0.0 - 0.1 K/cumm [facility] Neutrophil pct 82.8 % [facility] Comment: Interpretive Data Percent cell count reference ranges are not reported, since discordance with absolute values may lead to misinterpretation of CBC data. Current Interpretive Data was last revised on 2018. Imm gran pct 1.5 % [facility] Comment: Interpretive Data Percent cell count reference ranges are not reported, since discordance with absolute values may lead to misinterpretation of CBC data. Current Interpretive Data was last revised on 2018. Lymphocyte pct 8.4 % [facility] Comment: Interpretive Data Percent cell count reference ranges are not reported, since discordance with absolute values may lead to misinterpretation of CBC data. Current Interpretive Data was last revised on 2018. Monocyte pct 6.1 % [facility] Comment: Interpretive Data Percent cell count reference ranges are not reported, since discordance with absolute values may lead to misinterpretation of CBC data. Current Interpretive Data was last revised on 2018. Eosinophil pct 1.0 % [facility] Comment: Interpretive Data Percent cell count reference ranges are not reported, since discordance with absolute values may lead to misinterpretation of CBC data. Current Interpretive Data was last revised on 2018. Basophil pct 0.2 % [facility] Comment: Interpretive Data Percent cell count reference ranges are not reported, since discordance with absolute values may lead to misinterpretation of CBC data. Current Interpretive Data was last revised on 2018. Blood 10/18/2023 9:29 PM LABOR RELATIONS SPECIALIST 10/18/2023 10:27 PM LABOR RELATIONS SPECIALIST Jimenez Henao MD LAB BLOOD ORDERABLES Final Result [facility] Department [place] [address] * (ABNORMAL) CBC with auto differential (10/18/2023 9:29 PM LABOR RELATIONS SPECIALIST) WBC 16.4(H) 3.8 - 9.9 K/cumm [facility] Hgb 11.3(L) 13.0 - 17.5 g/dL [facility] Comment: Interpretive Data A reference range for this assay has not been established for patients with an unknown legal sex. Please refer to the laboratory test catalog for established sex-specific reference intervals. Current interpretive data was last revised on 2023. Hct 32.8(L) 38.9 - 50.3 % [facility] Comment: Interpretive Data A reference range for this assay has not been established for patients with an unknown legal sex. Please refer to the laboratory test catalog for established sex-specific reference intervals. Current interpretive data was last revised on 2023. Plt 286 150 - 400 K/cumm [facility] MPV 11.3 9.1 - 12.3 fL [facility] RBC 3.53(L) 4.30 - 5.80 M/cumm [facility] Comment: Interpretive Data A reference range for this assay has not been established for patients with an unknown legal sex. Please refer to the laboratory test catalog for established sex-specific reference intervals. Current interpretive data was last revised on 2023. MCV 92.9 81.3 - 96.4 fL [facility] MCH 32.0 27.1 - 33.3 pg [facility] MCHC 34.5 32.3 - 35.7 g/dL [facility] RDW CV 12.6 11.1 - 14.9 % [facility] RDW SD 43.3 35.7 - 48.1 fL [facility] NRBC abs 0.00 0.00 - 0.01 K/cumm [facility] Blood 10/18/2023 9:29 PM LABOR RELATIONS SPECIALIST 10/18/2023 10:27 PM LABOR RELATIONS SPECIALIST Tia Nolan PROOF TECHNICIAN LAB BLOOD ORDERABLES F inal Result Performing Organization Address City/[facility]/ZIP Co de Phone Number [facility] Department [place] [address] * (ABNORMAL) Basic metabolic panel (10/18/2023 9:29 PM LABOR RELATIONS SPECIALIST) [facility] Sodium 132(L) 135 - 145 mmol/L [facility] Potassium, pl 4.0 3.3 - 4.9 mmol/L [facility] Chloride 97 97 - 110 mmol/L [facility] CO2 27 22 - 32 mmol/L [facility] Anion gap 8 2 - 15 mmol/L [facility] BUN 16 6 - 25 mg/dL [facility] Creatinine 0.93 0.80 - 1.30 mg/dL [facility] Glucose 151 70 - 199 mg/dL [facility] Comment: Interpretive Data Fasting glucose [...] 2022. Calcium 8.2(L) 8.5 - 10.3 mg/dL [facility] Blood 10/18/2023 9:29 PM LABOR RELATIONS SPECIALIST 10/18/2023 10:27 PM LABOR RELATIONS SPECIALIST Tia Nolan NP LAB BLOOD ORDERABLES F inal Result Performing Organization Address [facility]/ZIP Co de Phone Number [facility] Department [place] [address] * Dexa Axial Skeleton Bone Density 1 or 2 Site (10/18/2023 12:45 PM LABOR RELATIONS SPECIALIST) Anatomical Region Laterality Modality Body N/A Digital Radiogra phy 10/18/2023 1:29 PM LABOR RELATIONS SPECIALIST Impressions 10/18/2023 2:27 PM LABOR RELATIONS SPECIALIST ?? 1. The bone mineral density of [...] Bella MD, Ph.D Narrative 10/18/2023 2:27 PM LABOR RELATIONS SPECIALIST BONE DENSITOMETRY OF THE SPINE AND HIP [...] Fluoroscopy < 1 Hour (10/18/2023 11:27 AM LABOR RELATIONS SPECIALIST) Narrative [facility] - 10/18/2023 11:27 AM LABOR RELATIONS SPECIALIST The images from this study are not interpreted by Radiology. ??Please refer to the physician's procedure / OR operative note. Gabriel Bennett MD IMG FLUOROSCOPY PROCEDURES Fide l Result [facility] * eGFR (10/17/2023 10:52 PM LABOR RELATIONS SPECIALIST) eGFR 83 >=60 mL/min/1. 73 m2 [facility] Comment: Interpretive Data Reference Interval [...] reviewed 2021. Blood 10/17/2023 10:5 2 PM LABOR RELATIONS SPECIALIST 10/17/2023 11:04 PM LABOR RELATIONS SPECIALIST us Jimenez Henao MD LAB BLOOD ORDERABLES Final Result Performing Organization Address City/State/[facility] Co de Phone Number [facility] Department [place] [address] * (ABNORMAL) Differential, auto (10/17/2023 10:52 PM LABOR RELATIONS SPECIALIST) Neutrophil abs 9.0(H) 1.5 - 6.5 K/cumm [facility] Imm gran abs 0.2(H) 0.0 - 0.1 K/cumm [facility] Lymphocyte abs 1.4 0.8 - 3.3 K/cumm [facility] Monocyte abs 0.8 0.2 - 0.8 K/cumm [facility] Eosinophil abs 0.2 0.0 - 0.5 K/cumm [facility] Basophil abs 0.1 0.0 - 0.1 K/cumm [facility] Neutrophil pct 77.7 % [facility] Comment: Interpretive Data Percent cell count reference ranges are not reported, since discordance with absolute values may lead to misinterpretation of CBC data. Current Interpretive Data was last revised on 2018. Imm gran pct 1.7 % [facility] Comment: Interpretive Data Percent cell count reference ranges are not reported, since discordance with absolute values may lead to misinterpretation of CBC data. Current Interpretive Data was last revised on 2018. Lymphocyte pct 11.7 % [facility] Comment: Interpretive Data Percent cell count reference ranges are not reported, since discordance with absolute values may lead to misinterpretation of CBC data. Current Interpretive Data was last revised on 2018. Monocyte pct 6.8 % [facility] Comment: Interpretive Data Percent cell count reference ranges are not reported, since discordance with absolute values may lead to misinterpretation of CBC data. Current Interpretive Data was last revised on 2018. Eosinophil pct 1.7 % [facility] Comment: Interpretive Data Percent cell count reference ranges are not reported, since discordance with absolute values may lead to misinterpretation of CBC data. Current Interpretive Data was last revised on 2018. Basophil pct 0.4 % [facility] Comment: Interpretive Data Percent cell count reference ranges are not reported, since discordance with absolute values may lead to misinterpretation of CBC data. Current Interpretive Data was last revised on 2018. Blood 10/17/2023 10:5 2 PM LABOR RELATIONS SPECIALIST 10/17/2023 11:04 PM LABOR RELATIONS SPECIALIST Jimenez Henao MD LAB BLOOD ORDERABLES Final Result [facility] Department [place] [address] * aPTT (10/17/2023 10:52 PM LABOR RELATIONS SPECIALIST) aPTT 32 28 - 38 sec [facility] Comment: Interpretive Data Heparin therapeutic range: 66.0 - 100.0 seconds. Range based on correlation with therapeutic heparin activity range of 0.3 - 0.7 Units/mL. Current interpretive data was last revised on 2023. Blood 10/17/2023 10:5 2 PM LABOR RELATIONS SPECIALIST 10/17/2023 11:07 PM LABOR RELATIONS SPECIALIST us Jimenez Henao MD LAB BLOOD ORDERABLES Final Result [facility] [place] [address] * Protime-INR (10/17/2023 10:52 PM LABOR RELATIONS SPECIALIST) Pathologist [facility] PT 12.6 10.3 - 13.7 sec [facility] INR 1.11 0.90 - 1.20 [facility] Comment: Interpretive data Oral anticoagulant therapeutic ranges: Venous thromboembolism prophylaxis or treatment: 2.0-3.0 CARDIOLOGY Standard range: 2.0-3.0 High-intensity range: 2.5-3.5 Refer to indication-specific guidelines for appropriate target ranges for prosthetic heart valve replacement. Current interpretive data was last revised on 2019. Blood 10/17/2023 10:5 2 PM LABOR RELATIONS SPECIALIST 10/17/2023 11:07 PM LABOR RELATIONS SPECIALIST Jimenez Henao MD LAB BLOOD ORDERABLES Final Result Performing Organization Address [facility] de Phone Number [facility] Department [place] [address] * (ABNORMAL) CBC with auto differential (10/17/2023 10:52 PM LABOR RELATIONS SPECIALIST) Pathologist [facility] WBC 11.6(H) 3.8 - 9.9 K/cumm [facility] Hgb 11.7(L) 13.0 - 17.5 g/dL [facility] Comment: Interpretive Data A reference range for this assay has not been established for patients with an unknown legal sex. Please refer to the laboratory test catalog for established sex-specific reference intervals. Current interpretive data was last revised on 2023. Hct 33.3(L) 38.9 - 50.3 % [facility] Comment: Interpretive Data A reference range for this assay has not been established for patients with an unknown legal sex. Please refer to the laboratory test catalog for established sex-specific reference intervals. Current interpretive data was last revised on 2023. Plt 256 150 - 400 K/cumm [facility] MPV 11.0 9.1 - 12.3 fL [facility] RBC 3.68(L) 4.30 - 5.80 M/cumm [facility] Comment: Interpretive Data A reference range for this assay has not been established for patients with an unknown legal sex. Please refer to the laboratory test catalog for established sex-specific reference intervals. Current interpretive data was last revised on 2023. MCV 90.5 81.3 - 96.4 fL [facility] MCH 31.8 27.1 - 33.3 pg [facility] MCHC 35.1 32.3 - 35.7 g/dL [facility] RDW CV 12.5 11.1 - 14.9 % [facility] RDW SD 41.4 35.7 - 48.1 fL [facility] NRBC abs 0.00 0.00 - 0.01 K/cumm [facility] Blood 10/17/2023 10:5 2 PM LABOR RELATIONS SPECIALIST 10/17/2023 11:04 PM LABOR RELATIONS SPECIALIST Tia Nolan PROOF TECHNICIAN LAB BLOOD ORDERABLES F inal Result [facility] Department [place] [address] * (ABNORMAL) Basic metabolic panel (10/17/2023 10:52 PM LABOR RELATIONS SPECIALIST) Sodium 133(L) 135 - 145 mmol/L [facility] Potassium, pl 3.5 3.3 - 4.9 mmol/L [facility] Chloride 100 97 - 110 mmol/L [facility] CO2 27 22 - 32 mmol/L [facility] Anion gap 6 2 - 15 mmol/L [facility] BUN 12 6 - 25 mg/dL [facility] Creatinine 0.97 0.80 - 1.30 mg/dL [facility] Glucose 186 70 - 199 mg/dL [facility] Comment: Interpretive Data Fasting glucose [...] 2022. Calcium 8.4(L) 8.5 - 10.3 mg/dL [facility] Blood 10/17/2023 10:5 2 PM LABOR RELATIONS SPECIALIST 10/17/2023 11:04 PM LABOR RELATIONS SPECIALIST us Tia Nolan PROOF TECHNICIAN LAB BLOOD ORDERABLES F inal Result [facility] Department [place] [address] * CT Urogram WO 3D (10/16/2023 12:36 PM LABOR RELATIONS SPECIALIST) Anatomical Region Laterality Modality Body N/A Computed Tomogra phy 10/16/2023 1:29 PM LABOR RELATIONS SPECIALIST Impressions 10/16/2023 1:59 PM LABOR RELATIONS SPECIALIST 1. ??Postprocedural changes of percutaneous nephrostomy tube [...] Eric Irene M.D. Narrative 10/16/2023 1:59 PM LABOR RELATIONS SPECIALIST EXAMINATION: CT UROGRAPHY WITH AND WITHOUT CONTRAST [...] IR Percutaneous Nephrostomy Left (10/14/2023 1:38 PM LABOR RELATIONS SPECIALIST) Anatomical Region Laterality Modality Body Left X-Ray Angiograph y 10/14/2023 3:34 PM LABOR RELATIONS SPECIALIST Impressions 10/14/2023 7:38 PM LABOR RELATIONS SPECIALIST Successful left percutaneous nephrostomy. Impacted stone in [...] Kendrick Hughes M.D. Narrative 10/14/2023 7:38 PM LABOR RELATIONS SPECIALIST EXAMINATION: IR PERCUTANEOUS NEPHROSTOMY LEFT HISTORY/INDICATION: ??73-year-old [...] was obtained. Prior to beginning the procedure, [place] Protocol was performed to confirm the patient's [...] was dilated before placing a 10 Fr [place] catheter. ??The retaining loop was formed and [...] was obtained. Prior to beginning the procedure, [place] Protocol was performed to confirm the patient's [...] was dilated before placing a 10 Fr [place] catheter. The retaining loop was formed and [...] it. Electronically signed by: Kendrick Hughes M.D. us Marquise Lim MD IMG IR PROCEDURES Final Res ult * (ABNORMAL) Urinalysis, microscopic only (10/14/2023 1:35 PM LABOR RELATIONS SPECIALIST) WBC, ur 0-5 0 - 5 /HPF [facility] RBC, ur >50(A) 0 - 2 /HPF [facility] Epithelial cells, squamous, ur 1-5 0 - 5 /HPF [facility] Bacteria, ur Trace(A) [facility] Mucous, ur Present(A) [facility] Urine 10/14/2023 1:35 PM LABOR RELATIONS SPECIALIST 10/14/2023 3:26 PM LABOR RELATIONS SPECIALIST us Marquise Lim MD LAB URINE ORDERABLES Final Result Performing Organization Address City[facility]/[place]IP [place] [address] * Urine culture Urine, kidney aspirate Left (10/14/2023 1:35 PM LABOR RELATIONS SPECIALIST) Report Final Report: No growth [facility] Urine, kidney aspirate (Left) 10/14/2023 1:35 PM LABOR RELATIONS SPECIALIST 10/14/2023 3:52 PM LABOR RELATIONS SPECIALIST Narrative [facility] - 10/16/2023 4:49 PM LABOR RELATIONS SPECIALIST Testing performed by [facility] ([phone]) Marquise Lim MD LAB MICROBIOLOGY - GENERAL ORDERABLES Final Result Performing Organization Address [facility] Co de Phone Number [facility] [place] [address] * (ABNORMAL) Urinalysis reflex to microscopic and culture Urine (10/14/2023 1:35 PM LABOR RELATIONS SPECIALIST) Color, ur Red(A) Yellow [facility] Clarity, ur Cloudy(A) Clear [facility] Specific gravity, ur 1.015 1.003 - 1.030 [facility] pH, urine 6.0 [facility] Comment: Interpretive Data ? Urine pH is affected by diet, medications, systemic acid-base disturbances, and renal tubular function. ??pH may affect urinary stone formation. ??For example, urine pH below 6.0 may help reduce the tendency for calcium phosphate stones and pH greater than 6.0 may reduce the tendency for uric acid stone formation. Source: [facility] Current Interpretive Data was last revised on 2017 Protein, ur ql 1+(A) Negative [facility] Glucose, ur ql Negative Negative [facility] Ketones, ur Negative Negative [facility] Bilirubin, ur 1+(A) Negative [facility] Blood, ur 4+(A) Negative [facility] Urobilinogen, ur 0.2 <2.0 mg/dL [facility] Nitrite, ur Negative Negative [facility] Leukocyte esterase, ur 2+(A) Negative [facility] UA reflex comment Reflex to microscopic UA will be performed. [facility] Urine 10/14/2023 1:35 PM LABOR RELATIONS SPECIALIST 10/14/2023 3:26 PM LABOR RELATIONS SPECIALIST us Marquise Lim MD LAB MICROBIOLOGY - GENERAL ORDERABLES Final Result [facility] Department [place] [address] * [place] Kidney Complete (10/14/2023 7:15 AM LABOR RELATIONS SPECIALIST) Anatomical Region Laterality Modality Kidney N/A Ultrasound 10/14/2023 6:15 PM LABOR RELATIONS SPECIALIST Impressions 10/14/2023 6:15 PM LABOR RELATIONS SPECIALIST 1. ??No hydronephrosis. ??Given patient had obstructive [...] Robert Yeboah M.D. Narrative 10/14/2023 6:15 PM LABOR RELATIONS SPECIALIST EXAMINATION: COMPLETE RENAL SONOGRAM HISTORY: ??Obstructive left [...] Robert Yeboah M.D. us Marquise Lim [place] [facility] [place]ED[place] Final Res ult * eGFR (10/14/2023 6:30 AM LABOR RELATIONS SPECIALIST) eGFR 64 >=60 mL/min/1. 73 m2 [facility] [...] last reviewed 2021. Blood 10/14/2023 6:30 AM LABOR RELATIONS SPECIALIST 10/14/2023 7:44 AM LABOR RELATIONS SPECIALIST us Marquise Lim MD LAB BLOOD ORDERABLES Final Result [facility] Department [place] [address] * (ABNORMAL) Differential, auto (10/14/2023 6:30 AM LABOR RELATIONS SPECIALIST) Neutrophil abs 7.4(H) 1.5 - 6.5 K/cumm [facility] Imm gran abs 0.1 0.0 - 0.1 K/cumm [facility] Lymphocyte abs 0.6(L) 0.8 - 3.3 K/cumm [facility] Monocyte abs 1.3(H) 0.2 - 0.8 K/cumm [facility] Eosinophil abs 0.1 0.0 - 0.5 K/cumm [facility] Basophil abs 0.0 0.0 - 0.1 K/cumm [facility] Neutrophil pct 79.0 % [facility] Comment: Interpretive Data Percent cell count reference ranges are not reported, since discordance with absolute values may lead to misinterpretation of CBC data. Current Interpretive Data was last revised on 2018. Imm gran pct 0.6 % [facility] Comment: Interpretive Data Percent cell count reference ranges are not reported, since discordance with absolute values may lead to misinterpretation of CBC data. Current Interpretive Data was last revised on 2018. Lymphocyte pct 6.3 % [facility] Comment: Interpretive Data Percent cell count reference ranges are not reported, since discordance with absolute values may lead to misinterpretation of CBC data. Current Interpretive Data was last revised on 2018. Monocyte pct 13.3 % [facility] Comment: Interpretive Data Percent cell count reference ranges are not reported, since discordance with absolute values may lead to misinterpretation of CBC data. Current Interpretive Data was last revised on 2018. Eosinophil pct 0.5 % [facility] Comment: Interpretive Data Percent cell count reference ranges are not reported, since discordance with absolute values may lead to misinterpretation of CBC data. Current Interpretive Data was last revised on 2018. Basophil pct 0.3 % [facility] Comment: Interpretive Data Percent cell count reference ranges are not reported, since discordance with absolute values may lead to misinterpretation of CBC data. Current Interpretive Data was last revised on 2018. Blood 10/14/2023 6:30 AM LABOR RELATIONS SPECIALIST 10/14/2023 7:20 AM LABOR RELATIONS SPECIALIST us Marquise Lim MD LAB BLOOD ORDERABLES Final Result [facility] Department [place] [address] * (ABNORMAL) Comprehensive metabolic panel (10/14/2023 6:30 AM LABOR RELATIONS SPECIALIST) Sodium 136 135 - 145 mmol/L [facility] Potassium, pl 3.4 3.3 - 4.9 mmol/L [facility] Chloride 101 97 - 110 mmol/L [facility] CO2 24 22 - 32 mmol/L [facility] Anion gap 11 2 - 15 mmol/L [facility] BUN 24 6 - 25 mg/dL [facility] Creatinine 1.20 0.80 - 1.30 mg/dL [facility] Glucose 153 70 - 199 mg/dL [facility] Comment: Interpretive Data Fasting glucose [...] 2022. Calcium 8.5 8.5 - 10.3 mg/dL [facility] Bilirubin, total 0.5 0.1 - 1.2 mg/dL [facility] Protein, pl 5.8(L) 6.5 - 8.5 g/dL [facility] Albumin 2.7(L) 3.5 - 5.0 g/dL [facility] Alk phos 108 40 - 130 Units/L [facility] ALT 67(H) 7 - 55 Units/L [facility] AST 49 10 - 50 Units/L [facility] Blood 10/14/2023 6:30 AM LABOR RELATIONS SPECIALIST 10/14/2023 7:20 AM LABOR RELATIONS SPECIALIST us Marquise Lim MD LAB BLOOD ORDERABLES Final Result [facility] Department [place] [address] * (ABNORMAL) CBC with auto differential (10/14/2023 6:30 AM LABOR RELATIONS SPECIALIST) [facility] WBC 9.4 3.8 - 9.9 K/cumm [facility] Hgb 11.4(L) 13.0 - 17.5 g/dL [facility] Comment: Interpretive Data A reference range for this assay has not been established for patients with an unknown legal sex. Please refer to the laboratory test catalog for established sex-specific reference intervals. Current interpretive data was last revised on 2023. Hct 32.2(L) 38.9 - 50.3 % [facility] Comment: Interpretive Data A reference range for this assay has not been established for patients with an unknown legal sex. Please refer to the laboratory test catalog for established sex-specific reference intervals. Current interpretive data was last revised on 2023. Plt 134(L) 150 - 400 K/cumm [facility] MPV 12.0 9.1 - 12.3 fL [facility] RBC 3.53(L) 4.30 - 5.80 M/cumm [facility] Comment: Interpretive Data A reference range for this assay has not been established for patients with an unknown legal sex. Please refer to the laboratory test catalog for established sex-specific reference intervals. Current interpretive data was last revised on 2023. MCV 91.2 81.3 - 96.4 fL [facility] MCH 32.3 27.1 - 33.3 pg [facility] MCHC 35.4 32.3 - 35.7 g/dL [facility] RDW CV 12.8 11.1 - 14.9 % [facility] RDW SD 42.2 35.7 - 48.1 fL [facility] NRBC abs 0.00 0.00 - 0.01 K/cumm [facility] Blood 10/14/2023 6:30 AM LABOR RELATIONS SPECIALIST 10/14/2023 7:20 AM LABOR RELATIONS SPECIALIST Marquise Lim MD LAB BLOOD ORDERABLES Final Result [facility] Department [place] [address] * Blood culture Blood (10/13/2023 10:59 PM LABOR RELATIONS SPECIALIST) Report Final Report: No growth [facility] Blood 10/13/2023 10:5 9 PM LABOR RELATIONS SPECIALIST 10/14/2023 12:27 AM LABOR RELATIONS SPECIALIST Narrative [facility] - 10/18/2023 7:00 AM LABOR RELATIONS SPECIALIST Collection->Peripheral 1. ?Blood cultures are incubated for [...] organism identification may be performed using the ulikeigene Gram-Positive Blood Culture Assay. This assay detects microbial DNA in positive blood culture broth via hybridization of target DNA to capture oligonucleotides on a microarray. This assay has been cleared by the [place] Food and Drug Administration and its performance characteristics have been verified by the [facility]. 5. ?For questions about this culture, contact the Microbiology Laboratory at [phone]. Interpretive data was last revised on 2020. Maqruise Lim MD LAB MICROBIOLOGY - GENERAL ORDERABLES Final Result [facility] Department [place] [address] * Blood culture Blood (10/13/2023 11:01 AM LABOR RELATIONS SPECIALIST) Report Final Report: No growth [facility] Blood 10/13/2023 11:0 1 AM LABOR RELATIONS SPECIALIST 10/13/2023 12:16 PM LABOR RELATIONS SPECIALIST Narrative [facility] - 10/18/2023 8:10 AM LABOR RELATIONS SPECIALIST 1. ?Blood cultures are incubated for 4 [...] performance characteristics have been verified by the [facility]. 5. ?For questions about this culture, contact the Microbiology Laboratory at [phone]. Interpretive data was last revised on 2020. Marquise Lim MD LAB MICROBIOLOGY - GENERAL ORDERABLES Final Result [facility] Department [place] [address] * [place] Fluoroscopy < 1 Hour (10/13/2023 9:48 AM LABOR RELATIONS SPECIALIST) Anatomical Region Laterality Modality Body N/A X-Ray Angiograph y 10/13/2023 7:06 PM LABOR RELATIONS SPECIALIST Impressions 10/14/2023 1:30 PM LABOR RELATIONS SPECIALIST Unsuccessful attempt at left nephrostomy placement in this patient with a nondilated system. Dictated by: Ana Alfaro M.D. The radiology attending physician has personally reviewed this study, and had reviewed and/or edited this written report and agrees with it. Electronically signed by: Rg Mar M.D. Narrative 10/14/2023 1:30 PM LABOR RELATIONS SPECIALIST EXAMINATION: FL FLUOROSCOPY < 1 HOUR HISTORY/INDICATION: [...] was obtained. Prior to beginning the procedure, [place] Protocol was performed to confirm the patient's [...] was obtained. Prior to beginning the procedure, [place] Protocol was performed to confirm the patient's [...] inal Result * eGFR (10/13/2023 6:50 AM LABOR RELATIONS SPECIALIST) [facility] eGFR >90 >=60 mL/min/1. 73 m2 [facility] Comment: Interpretive Data Reference Interval [...] last reviewed 2021. Blood 10/13/2023 6:50 AM LABOR RELATIONS SPECIALIST 10/13/2023 7:55 AM LABOR RELATIONS SPECIALIST us Severo Merlos MD LAB BLOOD ORDERABLES Final R esult [facility] [place] [address] * (ABNORMAL) Differential, auto (10/13/2023 6:50 AM LABOR RELATIONS SPECIALIST) Pathologist [facility] Neutrophil abs 5.8 1.5 - 6.5 K/cumm [facility] Imm gran abs 0.0 0.0 - 0.1 K/cumm [facility] Lymphocyte abs 0.2(L) 0.8 - 3.3 K/cumm [facility] Monocyte abs 0.2 0.2 - 0.8 K/cumm [facility] Eosinophil abs 0.0 0.0 - 0.5 K/cumm [facility] Basophil abs 0.0 0.0 - 0.1 K/cumm [facility] Neutrophil pct 92.8 % [facility] Comment: Interpretive Data Percent cell count reference ranges are not reported, since discordance with absolute values may lead to misinterpretation of CBC data. Current Interpretive Data was last revised on 2018. Imm gran pct 0.5 % [facility] Comment: Interpretive Data Percent cell count reference ranges are not reported, since discordance with absolute values may lead to misinterpretation of CBC data. Current Interpretive Data was last revised on 2018. Lymphocyte pct 2.7 % [facility] Comment: Interpretive Data Percent cell count reference ranges are not reported, since discordance with absolute values may lead to misinterpretation of CBC data. Current Interpretive Data was last revised on 2018. Monocyte pct 3.5 % [facility] Comment: Interpretive Data Percent cell count reference ranges are not reported, since discordance with absolute values may lead to misinterpretation of CBC data. Current Interpretive Data was last revised on 2018. Eosinophil pct 0.2 % [facility] Comment: Interpretive Data Percent cell count reference ranges are not reported, since discordance with absolute values may lead to misinterpretation of CBC data. Current Interpretive Data was last revised on 2018. Basophil pct 0.3 % [facility] Comment: Interpretive Data Percent cell count reference ranges are not reported, since discordance with absolute values may lead to misinterpretation of CBC data. Current Interpretive Data was last revised on 2018. Blood 10/13/2023 6:50 AM LABOR RELATIONS SPECIALIST 10/13/2023 7:55 AM LABOR RELATIONS SPECIALIST us Severo Merlos MD LAB BLOOD ORDERABLES Final R esult [facility] Department [place] [address] * (ABNORMAL) CBC with auto differential (10/13/2023 6:50 AM LABOR RELATIONS SPECIALIST) [facility] WBC 6.2 3.8 - 9.9 K/cumm [facility] Hgb 13.3 13.0 - 17.5 g/dL [facility] Comment: Interpretive Data A reference range for this assay has not been established for patients with an unknown legal sex. Please refer to the laboratory test catalog for established sex-specific reference intervals. Current interpretive data was last revised on 2023. Hct 37.0(L) 38.9 - 50.3 % [facility] Comment: Interpretive Data A reference range for this assay has not been established for patients with an unknown legal sex. Please refer to the laboratory test catalog for established sex-specific reference intervals. Current interpretive data was last revised on 2023. Plt 143(L) 150 - 400 K/cumm [facility] MPV 11.6 9.1 - 12.3 fL [facility] RBC 4.11(L) 4.30 - 5.80 M/cumm [facility] Comment: Interpretive Data A reference range for this assay has not been established for patients with an unknown legal sex. Please refer to the laboratory test catalog for established sex-specific reference intervals. Current interpretive data was last revised on 2023. MCV 90.0 81.3 - 96.4 fL [facility] MCH 32.4 27.1 - 33.3 pg [facility] MCHC 35.9(H) 32.3 - 35.7 g/dL [facility] RDW CV 12.8 11.1 - 14.9 % [facility] RDW SD 41.8 35.7 - 48.1 fL [facility] NRBC abs 0.00 0.00 - 0.01 K/cumm [facility] Blood 10/13/2023 6:50 AM LABOR RELATIONS SPECIALIST 10/13/2023 7:55 AM LABOR RELATIONS SPECIALIST us Severo Merlos MD LAB BLOOD ORDERABLES Final R esult [facility] Department [place] [address] * (ABNORMAL) Comprehensive metabolic panel (10/13/2023 6:50 AM LABOR RELATIONS SPECIALIST) Sodium 137 135 - 145 mmol/L [facility] Potassium, pl 3.7 3.3 - 4.9 mmol/L [facility] Chloride 101 97 - 110 mmol/L [facility] CO2 26 22 - 32 mmol/L [facility] Anion gap 10 2 - 15 mmol/L [facility] BUN 17 6 - 25 mg/dL [facility] Creatinine 0.82 0.80 - 1.30 mg/dL [facility] Glucose 160 70 - 199 mg/dL [facility] Comment: Interpretive Data Fasting glucose [...] 2022. Calcium 9.1 8.5 - 10.3 mg/dL [facility] Bilirubin, total 0.7 0.1 - 1.2 mg/dL [facility] Protein, pl 6.8 6.5 - 8.5 g/dL [facility] Albumin 3.6 3.5 - 5.0 g/dL [facility] Alk phos 113 40 - 130 Units/L [facility] ALT 68(H) 7 - 55 Units/L [facility] Comment:Reviewed AST 50 10 - 50 Units/L [facility] Blood 10/13/2023 6:50 AM LABOR RELATIONS SPECIALIST 10/13/2023 7:55 AM LABOR RELATIONS SPECIALIST us Severo Merlos MD LAB BLOOD ORDERABLES Final R esult [facility] Department [place] [address] * [place] Fluoroscopy < 1 Hour (10/13/2023 3:00 AM LABOR RELATIONS SPECIALIST) Narrative [id number] - 10/13/2023 10:04 AM LABOR RELATIONS SPECIALIST The images from this study are not interpreted by Radiology. ??Please refer to the physician's procedure / OR operative note. Severo Merlos MD IM FLUOROSCOPY PROCEDURES F inal Result [id number] * MRI Spine Total Complete W WO Contrast (10/12/2023 11:44 PM LABOR RELATIONS SPECIALIST) Anatomical Region Laterality Modality Spine N/A Magnetic Resonan ce 10/13/2023 12:4 6 AM LABOR RELATIONS SPECIALIST Impressions 10/13/2023 11:39 AM LABOR RELATIONS SPECIALIST 1. ??Redemonstrated degenerative disc disease of the [...] Kym Buckley M.D. Narrative 10/13/2023 11:39 AM LABOR RELATIONS SPECIALIST EXAMINATION: 1. Magnetic resonance imaging (MRI) of [...] by: Kym Buckley M.D. Amol Hargrove MD [facility] [place] PROCEDURES Fi nal Result * Blood culture Blood (10/12/2023 9:38 PM LABOR RELATIONS SPECIALIST) Report Final Report: No growth [facility] Blood 10/12/2023 9:38 PM LABOR RELATIONS SPECIALIST 10/12/2023 9:59 PM LABOR RELATIONS SPECIALIST Narrative [facility] - 10/17/2023 7:00 AM LABOR RELATIONS SPECIALIST Second site Collection->Peripheral 1. ?Blood cultures are [...] organism identification may be performed using the ulikeigene Gram-Positive Blood Culture Assay. This assay detects microbial DNA in positive blood culture broth via hybridization of target DNA to capture oligonucleotides on a microarray. This assay has been cleared by the [place] Food and Drug Administration and its performance characteristics have been verified by the [facility]. 5. ?For questions about this culture, contact the Microbiology Laboratory at [phone]. Interpretive data was last revised on 2020. Amol Hargrove MD LAB MICROBIOLOGY - [facility] ORDERABLES Final Result [facility] Department [place] [address] * CT Chest Abdomen Pelvis W Contrast (10/12/2023 9:00 PM LABOR RELATIONS SPECIALIST) Anatomical Region Laterality Modality Body N/A Computed Tomogra phy 10/12/2023 9:35 PM LABOR RELATIONS SPECIALIST Impressions 10/13/2023 10:26 AM LABOR RELATIONS SPECIALIST 1. ??Obstructing renal calculus in unchanged position [...] Mich Cabrera M.D. Narrative 10/13/2023 10:26 AM LABOR RELATIONS SPECIALIST EXAMINATION: CT CHEST ABDOMEN PELVIS W CONTRAST [...] (ABNORMAL) Erythrocyte sedimentation rate (10/12/2023 7:50 PM LABOR RELATIONS SPECIALIST) [facility] Erythrocyte sedimentation rate 48(H) 1 - 20 mm/hr [facility] Blood 10/12/2023 7:50 PM LABOR RELATIONS SPECIALIST 10/12/2023 8:11 PM LABOR RELATIONS SPECIALIST Result [facility] Rafael Cowan MD LAB BLOOD ORDERABLES Fin al Result Performing Organization Address [facility] Co de Phone Number [facility] [place] [address] * (ABNORMAL) CRP (acute phase) (10/12/2023 7:50 PM LABOR RELATIONS SPECIALIST) [facility] CRP 210.7(H) <=10.0 mg/L [facility] Blood 10/12/2023 7:50 PM LABOR RELATIONS SPECIALIST 10/12/2023 8:11 PM LABOR RELATIONS SPECIALIST Result [facility] Rafael Cowan MD LAB BLOOD ORDERABLES Fin al Result Performing Organization Address [facility] de Phone Number [facility] [place] [address] * eGFR (10/12/2023 7:50 PM LABOR RELATIONS SPECIALIST) Pathologist [facility] eGFR 81 >=60 mL/min/1. 73 m2 [facility] Comment: Interpretive Data Reference Interval [...] last reviewed 2021. Blood 10/12/2023 7:50 PM LABOR RELATIONS SPECIALIST 10/12/2023 8:23 PM LABOR RELATIONS SPECIALIST us Rafael Cowan MD LAB BLOOD ORDERABLES Fin al Result [facility] Department [place] [address] * (ABNORMAL) Urine culture Urine (10/12/2023 7:50 PM LABOR RELATIONS SPECIALIST) Report Final Report: Greater than or equal to 100,000 colonies/mL of Escherichia coli Greater than or equal to 100,000 colonies/mL of Escherichia coli #2 For susceptibility results, refer to accession number [id number] on the urine culture from 10/11/23 (.) [facility] Organism [facility] Organism [facility] Urine 10/12/2023 7:50 PM LABOR RELATIONS SPECIALIST 10/12/2023 9:46 PM LABOR RELATIONS SPECIALIST Narrative LAURA ZARAGOZA - 10/14/2023 9:24 AM LABOR RELATIONS SPECIALIST Urine culture reflexed based upon urinalysis results. Testing performed by [facility] ([phone]) Rafael Cowan MD LAB MICROBIOLOGY - GENER AL ORDERABLES Final Result Performing Organization Address City[facility] Co de Phone Number [facility] [place] [address] * (ABNORMAL) Urinalysis, microscopic only (10/12/2023 7:50 PM LABOR RELATIONS SPECIALIST) WBC, ur >50(A) 0 - 5 /HPF [facility] RBC, ur 6-10(A) 0 - 2 /HPF [facility] Bacteria, ur 3+(A) [facility] Culture Reflex Comment Reflex to urine culture will be performed. [facility] Urine 10/12/2023 7:50 PM LABOR RELATIONS SPECIALIST 10/12/2023 8:11 PM LABOR RELATIONS SPECIALIST us Rafael Cowan MD LAB URINE ORDERABLES Fin al Result Performing Organization Address [facility] de Phone Number [facility] Department [place] [address] * (ABNORMAL) Differential, auto (10/12/2023 7:50 PM LABOR RELATIONS SPECIALIST) Neutrophil abs 6.4 1.5 - 6.5 K/cumm [facility] Imm gran abs 0.0 0.0 - 0.1 K/cumm [facility] Lymphocyte abs 0.7(L) 0.8 - 3.3 K/cumm [facility] Monocyte abs 0.9(H) 0.2 - 0.8 K/cumm [facility] Eosinophil abs 0.0 0.0 - 0.5 K/cumm [facility] Basophil abs 0.0 0.0 - 0.1 K/cumm [facility] Neutrophil pct 79.1 % [facility] Comment: Interpretive Data Percent cell count reference ranges are not reported, since discordance with absolute values may lead to misinterpretation of CBC data. Current Interpretive Data was last revised on 2018. Imm gran pct 0.5 % [facility] Comment: Interpretive Data Percent cell count reference ranges are not reported, since discordance with absolute values may lead to misinterpretation of CBC data. Current Interpretive Data was last revised on 2018. Lymphocyte pct 8.4 % [facility] Comment: Interpretive Data Percent cell count reference ranges are not reported, since discordance with absolute values may lead to misinterpretation of CBC data. Current Interpretive Data was last revised on 2018. Monocyte pct 11.4 % [facility] Comment: Interpretive Data Percent cell count reference ranges are not reported, since discordance with absolute values may lead to misinterpretation of CBC data. Current Interpretive Data was last revised on 2018. Eosinophil pct 0.4 % [facility] Comment: Interpretive Data Percent cell count reference ranges are not reported, since discordance with absolute values may lead to misinterpretation of CBC data. Current Interpretive Data was last revised on 2018. Basophil pct 0.2 % [facility] Comment: Interpretive Data Percent cell count reference ranges are not reported, since discordance with absolute values may lead to misinterpretation of CBC data. Current Interpretive Data was last revised on 2018. Blood 10/12/2023 7:50 PM LABOR RELATIONS SPECIALIST 10/12/2023 8:11 PM LABOR RELATIONS SPECIALIST Rafael Cowan MD LAB BLOOD ORDERABLES Fin al Result [facility] Department [place] [address] * Blood culture Blood (10/12/2023 7:50 PM LABOR RELATIONS SPECIALIST) Report Final Report: No growth LAURA ZARAGOZA Blood 10/12/2023 7:50 PM LABOR RELATIONS SPECIALIST 10/12/2023 8:32 PM LABOR RELATIONS SPECIALIST Narrative LAURA ZARAGOZA - 10/17/2023 7:00 AM LABOR RELATIONS SPECIALIST Collection->Peripheral 1. ?Blood cultures are incubated for [...] organism identification may be performed using the ulikeigene Gram-Positive Blood Culture Assay. This assay detects microbial DNA in positive blood culture broth via hybridization of target DNA to capture oligonucleotides on a microarray. This assay has been cleared by the [place] Food and Drug Administration and its performance characteristics have been verified by the [facility]. 5. ?For questions about this culture, contact the Microbiology Laboratory at [phone]. Interpretive data was last revised on 2020. Amol Hargrove MD LAB MICROBIOLOGY - NERCT ORDERABLES Final Result Performing Organization Address City[facility]/ZIP Co de Phone Number [facility] Department [place] [address] * Lactate (10/12/2023 7:50 PM LABOR RELATIONS SPECIALIST) [facility] Lactate 1.1 0.7 - 2.0 mmol/L [facility] Blood 10/12/2023 7:50 PM LABOR RELATIONS SPECIALIST 10/12/2023 8:23 PM LABOR RELATIONS SPECIALIST Amol Hargrove MD LAB BLOOD ORDERABLES Final Result Performing Organization Address [facility]/[place] [address] * (ABNORMAL) Urinalysis reflex to microscopic and culture Urine (10/12/2023 7:50 PM LABOR RELATIONS SPECIALIST) Color, ur Camilo Yellow [facility] Clarity, ur Turbid(A) Clear [facility] Specific gravity, ur 1.025 1.003 - 1.030 [facility] pH, urine 6.0 [facility] Comment: Interpretive Data ? Urine pH is affected by diet, medications, systemic acid-base disturbances, and renal tubular function. ??pH may affect urinary stone formation. ??For example, urine pH below 6.0 may help reduce the tendency for calcium phosphate stones and pH greater than 6.0 may reduce the tendency for uric acid stone formation. Source: [facility] Current Interpretive Data was last revised on 2017 Protein, ur ql 3+(A) Negative [facility] Glucose, ur ql Negative Negative [facility] Ketones, ur Negative Negative [facility] Bilirubin, ur Negative Negative [facility] Blood, ur 2+(A) Negative [facility] Urobilinogen, ur >=8.0(A) <2.0 mg/dL [facility] Nitrite, ur Negative Negative [facility] Leukocyte esterase, ur 3+(A) Negative [facility] UA reflex comment Reflex to microscopic UA will be performed. [facility] Urine 10/12/2023 7:50 PM LABOR RELATIONS SPECIALIST 10/12/2023 8:11 PM LABOR RELATIONS SPECIALIST us Rafael Cowan MD LAB MICROBIOLOGY - GENER AL ORDERABLES Final Result [facility] Department [place] [address] * (ABNORMAL) CBC with auto differential (10/12/2023 7:50 PM LABOR RELATIONS SPECIALIST) Pathologist [facility] WBC 8.1 3.8 - 9.9 K/cumm [facility] Hgb 13.7 13.0 - 17.5 g/dL [facility] Comment: Interpretive Data A reference range for this assay has not been established for patients with an unknown legal sex. Please refer to the laboratory test catalog for established sex-specific reference intervals. Current interpretive data was last revised on 2023. Hct 38.5(L) 38.9 - 50.3 % [facility] Comment: Interpretive Data A reference range for this assay has not been established for patients with an unknown legal sex. Please refer to the laboratory test catalog for established sex-specific reference intervals. Current interpretive data was last revised on 2023. Plt 155 150 - 400 K/cumm [facility] MPV 11.3 9.1 - 12.3 fL [facility] RBC 4.15(L) 4.30 - 5.80 M/cumm [facility] Comment: Interpretive Data A reference range for this assay has not been established for patients with an unknown legal sex. Please refer to the laboratory test catalog for established sex-specific reference intervals. Current interpretive data was last revised on 2023. MCV 92.8 81.3 - 96.4 fL [facility] MCH 33.0 27.1 - 33.3 pg [facility] MCHC 35.6 32.3 - 35.7 g/dL [facility] RDW CV 12.7 11.1 - 14.9 % [facility] RDW SD 43.3 35.7 - 48.1 fL [facility] NRBC abs 0.00 0.00 - 0.01 K/cumm [facility] Blood 10/12/2023 7:50 PM LABOR RELATIONS SPECIALIST 10/12/2023 8:11 PM LABOR RELATIONS SPECIALIST Rafael Cowan MD LAB BLOOD ORDERABLES Fin al Result [facility] Department [place] [address] * (ABNORMAL) Basic metabolic panel (10/12/2023 7:50 PM LABOR RELATIONS SPECIALIST) Sodium 133(L) 135 - 145 mmol/L [facility] Potassium, pl 3.8 3.3 - 4.9 mmol/L [facility] Chloride 97 97 - 110 mmol/L [facility] CO2 27 22 - 32 mmol/L [facility] Anion gap 9 2 - 15 mmol/L [facility] BUN 22 6 - 25 mg/dL [facility] Creatinine 0.99 0.80 - 1.30 mg/dL [facility] Glucose 166 70 - 199 mg/dL [facility] Comment: Interpretive Data Fasting glucose [...] 2022. Calcium 9.1 8.5 - 10.3 mg/dL LUARA ZARAGOZA Blood 10/12/2023 7:50 PM LABOR RELATIONS SPECIALIST 10/12/2023 8:11 PM LABOR RELATIONS SPECIALIST us Rafael Cowan MD LAB BLOOD ORDERABLES Fin al Result [facility] Department [place] [address] documented in this encounter Visit Diagnoses Diagnosis [...] Other specified disorder of kidney and ureter Hydronephrosis with urinary obstruction due to renal calculus documented in this encounter Admitting Diagnoses Diagnosis [...] 10/25/23 at 0806 Given 10/29/2023 4:49 AM LABOR RELATIONS SPECIALIST 5 mg Given 10/27/2023 9:14 AM LABOR RELATIONS SPECIALIST 5 mg Given 10/25/2023 2:34 PM LABOR RELATIONS SPECIALIST 5 mg dilTIAZem XR (CARDIZEM CD,DILACOR XR) 24 hour capsule 240 mg 240 mg, oral, Daily, First dose on Sun10/30/23 at 0900, Do not crush, chew, cut, dissolve, open or otherwise manipulate tablet/capsule. Given 10/30/2023 9:56 AM LABOR RELATIONS SPECIALIST 240 mg diphenhydrAMINE (BENADRYL) tab/cap 25 mg 25 mg, oral, 4 times daily PRN, itching, Starting on 10/28/23 at 0113 Given 10/28/2023 9:20 AM LABOR RELATIONS SPECIALIST 25 mg Given 10/28/2023 1:19 AM LABOR RELATIONS SPECIALIST 25 mg diphenhydrAMINE-zinc acetate 2-0.1 % cream topical, Daily PRN, itching, Starting on 10/27/23 at 0913, Apply to affected area: IV access site, Indications: Pruritus of SkinIndications:Pruritus of Skin Given 10/27/2023 9:15 PM LABOR RELATIONS SPECIALIST Given 10/27/2023 1:11 PM LABOR RELATIONS SPECIALIST enoxaparin (LOVENOX) syringe 80 mg 80 mg (rounded from 88.6 mg = 1 mg/kg ? 88.6 kg), subcutaneous, Every 12 hours scheduled, First dose (after last modification) on Sun10/26/23 at 1815, Indications: Pulmonary EmbolismIndications:Pulmonary Embolism Given 10/30/2023 9:56 AM LABOR RELATIONS SPECIALIST 80 mg Right Upper Abdomen Given 10/29/2023 9:34 PM LABOR RELATIONS SPECIALIST 80 mg Ri ght Upper Abdomen Given 10/29/2023 9:31 AM LABOR RELATIONS SPECIALIST 80 mg Le ft Upper Abdomen gabapentin (NEURONTIN) capsule 300 mg 300 mg, oral, Every 8 hours scheduled, First dose on Sun10/23/23 at 2345, Indications: PainIndications:Pain Given 10/30/2023 3:39 PM LABOR RELATIONS SPECIALIST 300 mg Given 10/30/2023 5:19 AM LABOR RELATIONS SPECIALIST 300 mg Given 10/29/2023 9:34 PM LABOR RELATIONS SPECIALIST 300 mg HYDROmorphone (DILAUDID) injection 0.5 mg 0.5 mg, intravenous, Administer over 2 Minutes, Every 2 hours PRN, 2nd line for pain, Starting on Sun10/24/23 at 2245, Indications: PainIndications:Pain Given 10/26/2023 6:35 PM LABOR RELATIONS SPECIALIST 0.5 mg Given 10/25/2023 11:36 AM LABOR RELATIONS SPECIALIST 0.5 mg Given 10/25/2023 8:41 AM LABOR RELATIONS SPECIALIST 0.5 mg iothalamate meglumine (CONRAY) 60 % injection As needed, Starting on Sun10/18/23 at 1125, Intra-Op Given 10/18/2023 11:25 AM LABOR RELATIONS SPECIALIST 15 mL irbesartan (AVAPRO) tablet 300 mg 300 mg, oral, Daily, First dose on Sun10/30/23 at 0900 Given 10/30/2023 9:56 AM LABOR RELATIONS SPECIALIST 300 mg levETIRAcetam (KEPPRA) tablet 1,000 mg 1,000 mg, oral, 2 times daily, First dose on Sun10/24/23 at 2100, May mix with 120 mL of enteral nutrition formula or disperse crushed tablets (500 mg tablet strength studied) in 10 mL of water, shake for 5 minutes to dissolve, and administer immediately via enteral feeding tube Given 10/30/2023 9:56 AM LABOR RELATIONS SPECIALIST 1,000 m g Given 10/29/2023 9:34 PM LABOR RELATIONS SPECIALIST 1,000 mg Given 10/29/2023 9:31 AM LABOR RELATIONS SPECIALIST 1,000 mg lidocaine (LIDODERM) 5 % patch 2 patch 2 patch, transdermal, Administer over 12 Hours, Daily, First dose on Sun10/24/23 at 1130, Do not cover the holes on the top side of the patch., Apply to affected area: chest Medication Applied 10/28/2023 1:26 PM LABOR RELATIONS SPECIALIST 2 patches Other (Comment) Medication Applied 10/27/2023 1:11 PM LABOR RELATIONS SPECIALIST 2 patches Back Medication Applied 10/25/2023 11:36 AM LABOR RELATIONS SPECIALIST 2 patches Back ondansetron (ZOFRAN) injection 4 [...] Gastric Disorder,home med Given 10/30/2023 9:56 AM LABOR RELATIONS SPECIALIST 40 mg Given 10/29/2023 9:31 AM LABOR RELATIONS SPECIALIST 40 mg Given 10/28/2023 9:17 AM LABOR RELATIONS SPECIALIST 40 mg polyethylene glycol (MIRALAX) packet 17 g 17 g, oral, 2 times daily, First dose (after last modification) on Sun10/26/23 at 2100, Indications: constipationIndications:constipation Given 10/28/2023 9:16 AM LABOR RELATIONS SPECIALIST 17 g Given 10/27/2023 9:13 AM LABOR RELATIONS SPECIALIST 17 g ramelteon (ROZEREM) tablet 8 mg 8 mg, oral, Nightly PRN, sleep, Starting on Sun10/28/23 at 2033, Indications: Sleep-Onset InsomniaIndications:Sleep-Onset Insomnia Given 10/29/2023 10:55 PM LABOR RELATIONS SPECIALIST 8 mg Given 10/28/2023 9:31 PM LABOR RELATIONS SPECIALIST 8 mg senna-docusate (PERICOLACE) 8.6-50 mg per tablet 2 tablet 2 tablet, oral, 2 times daily, First dose on Sun10/23/23 at 2345, Hold for diarrhea., Indications: constipationIndications:constipation Given 10/28/2023 9:16 AM LABOR RELATIONS SPECIALIST 2 table ts Given 10/27/2023 9:14 AM LABOR RELATIONS SPECIALIST 2 tablets Given 10/26/2023 9:35 AM LABOR RELATIONS SPECIALIST 2 tablets sodium chloride 0.9% flush 0.5-20 mL 0.5-20 mL, intra-catheter, Every 8 hours scheduled, First dose on Sun10/23/23 at 2345, Flush volume based on line type and size. , Indications: FlushingIndications:Flushing Given 10/30/2023 5:20 AM LABOR RELATIONS SPECIALIST 10 mL Given 10/29/2023 9:35 PM LABOR RELATIONS SPECIALIST 10 mL Given 10/29/2023 2:00 PM LABOR RELATIONS SPECIALIST 10 mL sodium chloride 0.9% flush 0.5-20 mL 0.5-20 mL, intra-catheter, Every 8 hours scheduled, First dose on Sun10/23/23 at 2330, Flush volume based on line type and size. Given 10/30/2023 5:20 AM LABOR RELATIONS SPECIALIST 10 mL Given 10/29/2023 9:35 PM LABOR RELATIONS SPECIALIST 10 mL Given 10/29/2023 2:01 PM LABOR RELATIONS SPECIALIST 10 mL sodium chloride 0.9% irrigation As needed, Starting on Helene 10/18/23 at 1125, Intra-Op Given 10/18/2023 11:25 AM LABOR RELATIONS SPECIALIST 3,000 mL tamsulosin (FLOMAX) extended release capsule 0.8 mg 0.8 mg, oral, Daily with dinner, First dose on Sun10/24/23 at 1800, Do not crush, chew, cut, dissolve, open or otherwise manipulate tablet/capsule. Given 10/29/2023 6:50 PM LABOR RELATIONS SPECIALIST 0.8 mg Given 10/28/2023 6:11 PM LABOR RELATIONS SPECIALIST 0.8 mg Given 10/27/2023 4:49 PM LABOR RELATIONS SPECIALIST 0.8 mg documented in this encounter Discontinued Medications [...] Recently Administered Medications Times are shown in LABOR RELATIONS SPECIALIST. Scheduled Medication Order 10/28/2023 10/29/2023 10/30/2023 acetaminophen (TYLENOL) tablet 1,000 mg (COMPLETED) 1,000 mg, oral, Every 6 hours scheduled, First dose on Sun10/24/23 at 1200, For 18 doses 0019 (Given - Provider: Ritu Marin RN)0618 (Given - Provider: Ritu Marin, RN)1156 (Given - Provider: Porsha Lepe, NARENDRA)1811 (Given - Provider: Erick Melchor RN) ceFAZolin (ANCEF) 100 mg/mL sterile water 2,000 mg (CANCELED) 2,000 mg, intravenous, at 400 mL/hr, Administer over 3 Minutes, Every 8 hours scheduled, First dose on Sun10/28/23 at 1045, Indications: Blood Stream/Endovascular Infection 1103 (Given - Provider: Porsha Lepe, NARENDRA)2132 (Given - Provider: Suzanne Mendoza, NARENDRA) 0601 (Given - Provider: Suzanne Mendoza RN)1359 (Given - Provider: Matilda Gonzales RN)2136 (Given - Provider: Suzanne Mendoza RN) 0519 (Given - Provider: Suzanne Mendoza RN) dilTIAZem XR (CARDIZEM CD,DILACOR XR) 24 [...] Pulmonary Embolism 0916 (Given - Provider: Porsha Lepe, NARENDRA)2132 (Given - Provider: Suzanne Mendoza, NARENDRA) 0931 (Given - Provider: Matilda Gonzales, NARENDRA)2134 (Given - Provider: Suzanne Mendoza RN) 0956 (Given - Provider: Matilda Gonzales RN) gabapentin (NEURONTIN) capsule 300 mg 300 mg, oral, Every 8 hours scheduled, First dose on Sun10/23/23 at 2345, Indications: Pain 0618 (Given - Provider: Ritu E. Junge, RN)1326 (Given - Provider: Porsha Lepe RN)2132 (Given - Provider: Suzanne Mendoza RN) 0601 (Given - Provider: Suzanne Mendoza RN)1401 [...] tube 0916 (Given - Provider: Porsha Lepe RN)213 (Given - Provider: Suzanne Mendoza RN) 0931 (Given - Provider: Matilda Gonzales RN)2134 (Given - Provider: Suzanne Mendoza RN) 0956 (Given - Provider: Matilda Gonzales RN) lidocaine [...] home med 0917 (Given - Provider: Porsha Lepe RN) 0931 (Given - Provider: Matilda Gonzales RN) 0956 (Given - Provider: Matilda Gonzales RN) polyethylene glycol (MIRALAX) packet 17 g 17 g, oral, 2 times daily, First dose (after last modification) on Sun10/26/23 at 2100, Indications: constipation 0916 (Given - Provider: Porsha Lepe RN)2133 (Not Given - Provider: Suzanne Mendoza RN - Reason: Patient/family refused - Comment: soft stools) 09 (Not Given - Provider: Matilda Gonzales RN [...] Reason: Patient/family refused - Comment: soft stools) 09 (Not Given - Provider: Matilda Gonzales RN [...] Ritu Marin RN)1334 (Given - Provider: Porsha Lepe, NARENDRA)2134 (Given - Provider: Suzanne Mendoza RN) 0602 [...] type and size. 0618 (Given - Provider: Rtiu Marin RN)1333 (Given - Provider: Porsha Lepe RN)213 (Given - Provider: Suzanne Mendoza RN) 0602 (Given - Provider: Suzanne Mendoza RN)1401 (Given - Provider: Matilda Gonzales RN)2135 (Given - Provider: Suzanne Mendoza RN) 0520 (Given - Provider: Suzanne Mendoza RN)1400 (Due) tamsulosin (FLOMAX) extended release capsule 0.8 mg 0.8 mg, oral, Daily with dinner, First dose on Sun10/24/23 at 1800, Do not crush, chew, cut, dissolve, open or otherwise manipulate tablet/capsule. 181 (Given - Provider: Erick Melchor RN) 185 (Given - Provider: Matilda Gonzales RN) vancomycin 1500 mg/515 mL in sodium chloride 0.9% (premix) 1,500 mg (CANCELED) 1,500 mg, intravenous, Administer over 90 Minutes, Every 12 hours, First dose on Sun10/28/23 at 1015, Indications: Bone/Joint Infection, Prophylaxis, Surgical 1103 (New Bag - Provider: Porsha Lepe RN)2132 (New Bag - Provider: Suzanne Mendoza RN) 113 (New Bag - Provider: Porsha Lepe, NARENDRA)2135 (New Bag - Provider: Suzanne Mendoza RN) PRN Medication Order 10/28/2023 10/29/2023 10/30/2023 cyclobenzaprine (FLEXERIL) tablet 5 mg 5 mg, oral, 3 times daily PRN, muscle spasms, Starting on Helene 10/25/23 at 0806 0449 (Given - Provider: Suzanne Mendoza RN[facility]1355 [facility] Matilda Gonzales [facility]) diphenhydrAMINE (BENADRYL) tab/cap 25 mg 25 mg, [...] Starting on 10/28/23 at 2033, Indications: Sleep-Onset Insomnia 2130 (Given - Provider: Suzanne Mendoza, NARENDRA) 225 (Given - Provider: Szuanne Mendoza RN) sodium chloride 0.9% flush 0.5-20 [...] 0.9% (premix) 1,500 mg 4 10/28/2023 10/23/20 23 diphenhydrAMINE-zinc acetate 2-0.1 % cream 1 10/27/2023 [...] [place]) enema 133 mL 1 10/23/2023 multivit [id number] lcium (THERA-M) tablet 1 tablet 1 10/23/2023 naloxone (NARCAN) 0.4 mg/mL injection 0.04-0.4 mg 4 10/23/2023 10/13/2023 norepinephrine in dextrose 5 % (LEVOPHED) 8,000 mcg/250 mL (32 mcg/mL) infusion (premix) 2 10/23/2023 ondansetron (ZOFRAN) injection 4 mg 3 10/2310/13/2023 phenylephrine (ARIELLE-SYNEPHRIN E) 1 mg/10 mL (100 [...] chloride 0.9% flush 0.5-20 mL 10 10/0510/13/2023 sodium chloride 0.9% irrigation 2 3 10/13/2023 succinylcholine (ANECTINE) 2 0 mg/mL injection - ADS Override Pull 1 10/23/2023 vancomycin (VANCOCIN) solution 1 10/23/2023 cephalexin (KEFLEX) capsule 500 mg 1 2022 famotidine (PEPCID) injection 20 mg 1 10/18 fentaNYL (SUBLIMAZE) preserv ative free injection 50 mcg 3 10/18/2023 metoclopramide (REGLAN) 5 mg /mL injection 10 mg 1 10/18/2023 ioversoL (OPTIRAY 350) syringe 125 mL 1 [...] 52 mL (10 mg/mL) syringe 1 10/13/2023 iothalamate meglumine (CONRA Y) 60 % injection 1 10/13/2023 ioversoL (OPTIRAY 350) injection 1 10/13/20 23 meperidine (DEMEROL) preserv ative free injection 12.5 [...] 1 10/23/2023 SKIN PREP 1 10/14/2023 VOID SUPPLY OFFICER TO OR 1 10/14/2023 ASSESS 1 10/13/2023 [...] 10/12/2023 documented in this encounter Care Teams Racecar Driver Relationship Specialty Start Date End Date Rl Medina DO [address] [place] [address] PCP - General 08/09/17 05/25/24 documented as of this encounter
--- OUTSIDE RECORDS SUMMARY | 2024-11-05 19:27 | XMS_ITS | Encounter Summary ---
Author Organization [facility] Healthcare Address [address] [place] [address] Care Team Providers Care Plumbing Engineer Name Role Phone Rl Medina DO Primary Care Provider Encounter Details Date Type Department Care Team (Latest Contact Info) Description 09/13/2023 9:47 AM FLOWER SHOP MANAGER - 09/13/2023 11:59 PM FLOWER SHOP MANAGER Hospital Encounter [facility] [address] [place] [id number] Lumbar spine pain Discharge Disposition: Discharge to home or self [...] alcohol? 4 or more times a week 09/13/2023 Q2: How many drinks containi ng alcohol do you have on a typical day when you are drinking? 1 or 2 Q3: How often do you have si x or more drinks on one occasion? 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 1 capsule 04/17/2023 3 cetirizine (ZyrTEC) 10 mg tabletIndications :Allergic Rhinitis Take 1 tablet (10 mg total) by mouth lip and gate builder before breakfast 4 cholecalciferol (VITAMIN D-3) 5,000 unit capsuleIndication s:Vitamin D Deficiency Take 1 capsule (5,000 Units total) by mouth every morning 4 coenzyme Q10 100 mg capsule Take 1 capsule (100 mg total) by mouth lip and gate builder before breakfast 4 cyclobenzaprine (FLEXERIL) 10 mg tablet Take 1 tablet (10 mg total) by mouth 3 (three) times a day as needed 08/19/2023 3 DILT-XR 240 mg 24 hr capsuleIndication s:hypertension Take 1 capsule (240 mg total) by mouth 2 (two) times a day 0 05/12/2019 4 fish,bora,flax oils-om3,6,9no1 400-400-400 mg capsuleIndication s:Supplement Take 1 tablet by mouth lip and gate builder before breakfast 4 HYDROcodone-aceta minophen (NORCO) 5-325 mg per tablet TAKE ONE TABLET BY MOUTH EVERY SIX HOURS for 4 days 08/14/2023 3 irbesartan (AVAPRO) 300 mg tabletIndications :hypertension Take 1 tablet (300 mg total) by mouth every morning 08/10/2021 4 loratadine (CLARITIN) 10 mg tabletIndications :Allergic Rhinitis Take 1 tablet (10 mg total) by mouth daily as needed for allergies 3 meloxicam (MOBIC) 15 mg tablet TAKE 1 TABLET BY MOUTH ONCE DAILY WITH FOOD . APPOINTMENT FOR 6 MONTH MED CHECK REQUIRED FOR FUTURE REFILLS 08/28/2023 3 Mounjaro 10 mg/0.5 mL pen injectorIndicatio ns:Pre-Diabetic Inject 10 mg under the skin once a week Sunday04/05/2023 4 Mounjaro 7.5 mg/0.5 mL pen injector 06/22/2023 3 omeprazole (PriLOSEC) 20 mg capsuleIndication s:Treatment of Non-Bleeding Gastric Disorder,GERD Take 1 capsule (20 mg total) by mouth every morning 4 peg 400-hypromellose- glycerin 1-0.36-0.2 % dropsIndications: Dry Eye Administer 1 drop into both eyes once daily as needed 10/06/2019 3 polyethylene glycol (MIRALAX) 17 gram/dose powderIndications :constipation Take 17 g by mouth daily as needed 10/06/2019 3 sildenafil, antihypertensive, (REVATIO) 20 mg tabletIndications :ED Take 1 tablet (20 mg total) by mouth as needed 3 solifenacin (VESIcare) 5 mg tabletIndications :Overactive bladder,Prostate cancer (HCC) Take 1 tablet (5 mg total) by mouth daily 30 tablet 1 03/15/2023 3 documented as of this encounter Discharge Disposition Disposition Code Departure Means Destination Discharge to home or self care documented in this encounter Plan of Treatment Not on file documented as of this encounter Procedures Procedure Name Priority Date/Time Associated Diagnosis Comments XR SPINE LUMBAR COMPLETE 4 OR MORE VIEWS Schedule Routine, Read Routine (OP Routine) 09/13/2023 9:51 AM FLOWER SHOP MANAGER Lumbar spine pain documented in this encounter Results * XR Spine Lumbar 4 or More Views (09/13/2023 9:51 AM FLOWER SHOP MANAGER) Anatomical Region Laterality Modality Spine N/A Computed Radiogr aphy 09/13/2023 11:0 0 AM FLOWER SHOP MANAGER Impressions 09/13/2023 11:55 AM FLOWER SHOP MANAGER 1. 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 Dictated by: John Armendariz MD The radiology attending physician has personally reviewed this study, and had reviewed and/or edited this written report and agrees with it. Electronically signed by: Justin Choi MD Narrative 09/13/2023 11:55 AM FLOWER SHOP MANAGER EXAMINATION: XR SPINE LUMBAR 4 OR MORE VIEWS HISTORY: ??Low back pain FINDINGS: 4 radiographs of the lumbar spine are submitted for fragmentation. There is straightening of the lumbar spine with reversal of the normal lumbar lordosis. ??Vertebral body heights are maintained. There is multilevel degenerative disc disease greatest and mild at L1-L2. ??No spondylolisthesis. ??There are multiple large anterior bridging osteophytes. ??No acute vertebral compression fractures. Procedure Note Justin Choi MD - 09/13/2023 EXAMINATION: XR SPINE LUMBAR 4 OR MORE VIEWS HISTORY: Low back pain FINDINGS: 4 radiographs of the lumbar spine are submitted for fragmentation. There is straightening of the lumbar spine with reversal of the normal lumbar lordosis. Vertebral body heights are maintained. There is multilevel degenerative disc disease greatest and mild at L1-L2. No spondylolisthesis. There are multiple large anterior bridging osteophytes. No acute vertebral compression fractures. IMPRESSION: 1. Mild multilevel degenerative disc disease of the lumbar spine, most prominent at L1-L2. Dictated by: John Armendariz MD The radiology attending physician has personally reviewed this study, and had reviewed and/or edited this written report and agrees with it. Electronically signed by: Justin Choi MD Marcial uV Jr., MD IMG XR PROCEDURES F inal Result documented in this encounter Visit Diagnoses Diagnosis Lumbar spine pain documented in this encounter Care Teams Plumbing Engineer Relationship Specialty Start Date End Date Rl Medina DO [address] [place] [address] PCP - General 08/09/17 05/25/24 documented as of this encounter
--- OUTSIDE RECORDS SUMMARY | 2024-11-05 19:27 | XMS_ITS | Encounter Summary ---
Author Organization [facility] Healthcare Address [address] [place] [address] Care Team Providers Care Plate Printer Name Role Phone Rl Medina DO Primary Care Provider Reason for Visit * Reason Comments Urinary Problem * Auth/Cert Specialty Diagnoses / Procedures Referred By Contac t Referred To Contact Diagnoses Ureteral colic Procedures na Referral ID Status Reason Start Date Expiration Date Visits Re quested Visits Authorized [id number] 1 1 Encounter Details Date Type Department Care Team (Late st Contact Info) Description 10/13/2023 1:45 AM PERCH MENDER - 10/13/2023 3:25 AM PERCH MENDER Surgery [facility] Operating Room [address] [place] [address] Fredrick Mcneil MD [address] [place] [address] CYSTOSCOPY Surgery Details Date/Time Status Location OR Service Patient Class Case Cl ass Case Type Trauma Case? 10/13/2023 1:45 AM Posted [facility] OR POD 2 203 Urology Emergency Urgent - 3 hours Panel 1 Procedure LRB Anes Op Region Wound Class Comments CYSTOSCOPY N/A General Urethra Class II - Clean Co ntaminated PYELOGRAM - RETROGRADE Left Choice Perineum Class I - Clean Surgeon Surgeon Role Service Panel Fredrick Mcneil MD Primary Urology 1 Vero Tolentino MD [...] more drinks on one occasion? 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 Not on file Not on file Not on file documented as of this encounter Last Filed Vital Signs Vital Sign Reading Time Taken Comments Blood Pressure 142/84 10/13/2023 3:20 AM PERCH MENDER Pulse 79 10/13/2023 3:20 AM PERCH MENDER Temperature 36.4 ??C (97.5 ??F) 10/13/2023 12:[address] Respiratory Rate 24 10/13/2023 3:20 AM PERCH MENDER Oxygen Saturation 97% 10/13/2023 3:20 AM PERCH MENDER Inhaled Oxygen Concentration - - Weight 81.6 kg (180 lb) 10/12/2023 4:24 PM PERCH MENDER Height 172.7 cm (5' 8 ) 10/12/2023 4:24 PM PERCH MENDER Body Mass Index 29.7 10/13/2023 4:15 AM PERCH MENDER documented in this encounter Discharge Summaries * Rafael Rodriguez NP - 10/30/2023 1:19 PM CST Images from the original note were not included. Spine Inpatient Discharge Summary Admitting Provider: Hayder Vu MD Discharge Provider: Hayder Vu Fo* Primary Care Physician at Discharge: Rl Medina DO [phone] Admission Date: 10/12/2023 Discharge Date: 10/30/2023 Primary [...] URO BW MOB4 JORDAN 12/24/2023 2:20 PM [facility] BCT3 BJ N CT BJ Main IMG 12/24/2023 3:30 PM Carrie Jerez, HOST SPINE BWMOB4 NS Chem/LFT Lab History Latest [...] 1 tablet (10 mg total) by mouth phlebotomist associate before breakfast For: inflammation of the nose due to an allergy Commonly known as: ZyrTEC cholecalciferol 5,000 unit capsule Take 1 capsule (5,000 Units total) by mouth every morning For: low vitamin D levels Commonly known as: VITAMIN D-3 coenzyme Q10 100 mg capsule Take 1 capsule (100 mg total) by mouth phlebotomist associate before breakfast cyclobenzaprine 5 mg tablet Take [...] mg capsule Take 1 tablet by mouth phlebotomist associate before breakfast For: Supplement gabapentin 300 mg [...] (two) times a day Commonly known as: KECOLEEN Mounjaro 10 mg/0.5 mL pen injector Inject [...] says it's OK. *Do not do any compounding technician that cause you to twist, push or [...] previous diet Contact Information for Follow-ups [facility] (All Locations) Next Steps: Follow up Comments: Please schedule patient for follow up appointment. Section: Epilepsy Provider: First available Time Frame: First available Schedule with Transition of Care Clinic: No Questions: Please select the performing region: [facility] (All Locations) # of visits: 1 Referral Status: Pending Coordinator Review [facility] Home Care Services Specialty: Home Health and Hospice [address] [facility] [address] Next Steps: Follow up Questions: Service Line: [...] Hayder Vu MD at 10/31/2023 3:37 PM PERCH MENDER H MENDER H MENDER H MENDER documented in this encounter Discharge Instructions * Discharge Instructions* Rafael Rodriguez NP - 10/30/2023 10:21 AM PERCH MENDER Thoracic/Lumbar Spinal Fusion Post-Operative Instructions Questions: ?? For any post-operative questions, please contact Dr. Horace Mojica???s nurse, at [phone] via [employer]. Galina will view and respond to your [employer] questions sent to Dr. Vu. Wound Care: [...] you upon discharge. Please call Galina at [phone] if unable to keep appointment. Nov 09, 2023 11:[address] Rl Medina Post-hospitalization appointment Nov 12, 2023 9:20 AM New with Hayder Vu MD [facility] Orthopaedic Surgery ( ORTHOPEDIC SURGERY) [address] [place] [address] 6th Floor [address] [facility] [address] Dec 03, 2023 1:20 PM Return with Hayder Vu MD [facility] Orthopaedic Surgery ( ORTHOPEDIC SURGERY) [address] [facility] [address] [facility] [address] Dec 13, 2023 1:20 PM Return with Pan Irene MD [facility] Urology (WOOD SURGERY) [address] [facility] [address] [address] CALL [facility] NEUROLOGY FOR FOLLOW UP APPT WITH THE [facility] EPILEPSY DEPARTMENT [phone] Emergencies: SIGNS OF AN EMERGENT SITUATION INCLUDE-If [...] it is best that you return to [facility] for your emergent care. Please call the emergency exchange at [phone] or toll free any time of the day or night on the daysthe office is closed, so that the emergent care can be initiated for you. Please follow these instructions for emergency calls: -During business hours (Sunday through Sunday 8am-4:30 PM except for holidays), call [phone]. The master control operator will connect you with Dr. Vu???s nurse. Dr. Vu???s nurse reports all emergencies to Dr. Vu. -After business hours (after 4:30 PM and before 8:00am) you may call the Emergency Orthopaedic Exchange at [phone] or TOLL [phone]. The master control operator cotton grower will contact Dr. Echeverria???s staff. IMPORTANT: Refills of medications need to be done during business hours-NO pain medication refills will be given over the phone after hours. Please call with any questions or concerns. We will be glad to assist you in any way during your recovery period. Dr. Vu???s Staff Galina Franco RN: [phone] H MENDER H MENDER H MENDER H MENDER H MENDER H MENDER documented in this encounter Medications at Time [...] 1 tablet (10 mg total) by mouth phlebotomist associate before breakfast 4 cholecalciferol (VITAMIN D-3) 5,000 unit capsuleIndication s:Vitamin D Deficiency Take 1 capsule (5,000 Units total) by mouth every morning 4 coenzyme Q10 100 mg capsule Take 1 capsule (100 mg total) by mouth phlebotomist associate before breakfast 4 cyclobenzaprine (FLEXERIL) 5 mg [...] capsuleIndication s:Supplement Take 1 tablet by mouth phlebotomist associate before breakfast 4 gabapentin (NEURONTIN) 300 mg [...] Patient choice (Home Health/Hospice) list given to patient/traveling representative? Not Applicable [facility] Facility list given to patient/traveling representative? Not Applicable IM letter completed with patient at bedside. Patient informed of the planned discharge date, the date the beneficiary's financial liability begins, the beneficiary's appeal rights, and how and when to initiate an appeal. Patient provided copy of IM letter, IM letter placed in unit's designated medical record bin to be uploaded into patient's chart. Nathalie Herrera, CLAIRE, RN H MENDER * Nathalie Herrera RN - 10/30/2023 9:08 AM CST 10/30/23 0908 Communications Important Message from Medicare notice given to patient? Not Applicable [facility] letter given? Not Applicable Patient choice (Home Health/Hospice) list given to patient/traveling representative? Yes [facility] Facility list given to patient/traveling representative? Not Applicable Fiduciary Responsibility Patient/Designated decision maker was informed of [facility] fiduciary relationship as necessary Pin Ticket Machine Operator noted patient has been recommended for home heatlh by PT/OT. Pin Ticket Machine Operator met with thepatient at bedside to discuss recommendations by therapy and to work on a potential discharge disposition plan. Pin Ticket Machine Operator provided education to patient on therapy recommendations and home health services. Patient reported being interested in home health. corporate safety manager provided a home health list to patient. Patient selected the following choices (preference order): Residential ([facility] Home Health [facility] Health corporate safety manager sent out referrals via [employer]. CM awaiting acceptance from a home health agency and [facility] work on discharge planning with patient and family. Patient states he has own wheeled walker. Nathalie Herrera, MSN, RN H MENDER * Nathalie Champagne, PT - 10/30/2023 7:32 [...] treatment team and contact the PT or ASSEMBLER INSULATOR currently assigned to this patient. If a physical therapy clinician is not assigned to this patient, please call [phone]. 10/30/23 0732 PT Last Visit Session Type Treatment (and [...] SPV via logroll - ADEQUATE FOR DISCHARGE H MENDER * Nasir Manzanares MD - 10/30/2023 6:38 [...] BP pends, Dispo pending home with setup [facility] today Objective Vitals: 24hr Min/Max: Temp Min: [...] For susceptibility results, refer to accession number [id number] on the urine culture from 10/11/23 MICROBIOLOGY [...] M.D. Department of Orthopaedic Surgery, PGY-3 [facility] [place] [facility] Please use [employer] to page/call the appropriate Orthopaedic Surgery Team/Resident if questions or concerns Please call with questions during daytime. See below for overnight issues. If you know the resident's name on the appropriate orthopaedic surgery team, please use [email or web address] to page resident directly. If questions arise and the appropriate resident can't be reached or you are calling overnight, please contact [phone] ([place]- 7:30 PM - 6:30 AM - Floor Resident) or [phone] (24 hours/day - Consult Resident) Cosigned by Hayder Vu MD at 11/06/2023 6:43 PM PERCH MENDER H MENDER H MENDER * Nasir Manzanares MD - 10/29/2023 1:32 PM CST Brief Ortho Progress Note: I did not personally visualize the drain tip after it was inadvertantly removed last night. However, per report from night worker, the drain tip looked good and entire drain was removed. Nasir Manzanares MD Orthopaedic Surgery PGY2 H MENDER H MENDER * Artie Real MD PhD - 10/29/2023 [...] capsule 300 mg 300 mg oral Q8H [facility] levETIRAcetam (KEPPRA) tablet 1,000 mg 1,000 [...] non-contrast head CT. Responsible Team Darrian Bone ([phone]) Artie Real ([phone]) Hira Segura (Chief) For any questions or concerns, please contact the nurse practitioner signed in to the chart. If youare unable to reach them, you may contact the residents as listed. If it is after 6pm or you are unable to reach the HOST or resident team, please page the Neurosurgery Call Pager at [phone]. Note created by Artie Real MD PhD on 10/29/2023 at 7:20 AM. Cosigned by Gen Murray MD at 10/29/2023 4:52 PM PERCH MENDER H MENDER H MENDER * Nasir Manzanares MD - 10/29/2023 7:18 [...] For susceptibility results, refer to accession number [id number] on the urine culture from 10/11/23 MICROBIOLOGY [...] precautions - PT/OT - Dispo: home with SHIRLEY Manzanares M.D. Department of Orthopaedic Surgery, PGY-3 [facility] [place] [facility] Please use [email or web address] to page/call the appropriate Orthopaedic Surgery Team/Resident if questions or concerns Please call with questions during daytime. See below for overnight issues. If you know the resident's name on the appropriate orthopaedic surgery team, please use [email or web address] to page resident directly. If questions arise and the appropriate resident can't be reached or you are calling overnight, please contact [phone] ([place]- 7:30 PM - 6:30 AM - Floor Resident) or [phone] (24 hours/day - Consult Resident) Cosigned by Hayder Vu MD at 11/06/2023 6:43 PM PERCH MENDER H MENDER H MENDER * Shane Bowen, OT - 10/28/2023 11:09 [...] not assigned to this patient, please call [phone]. 10/28/23 6787 General Session Type Treatment OT Received On [...] OT OT - OK to Discharge No H MENDER * Carey Hein, PT - 10/28/2023 10:00 [...] treatment team and contact the PT or ASSEMBLER INSULATOR currently assigned to this patient. If a physical therapy clinician is not assigned to this patient, please call [phone]. 10/28/23 1000 PT Last Visit Session Type [...] 11/04/23 -- Goal Details: SPV with WW H MENDER * Nasir Manzanares MD - 10/28/2023 8:32 [...] For susceptibility results, refer to accession number [id number] on the urine culture from 10/11/23 MICROBIOLOGY [...] M.D. Department of Orthopaedic Surgery, PGY-3 [facility] [place] [facility] Please use [email or web address] to page/call the appropriate Orthopaedic Surgery Team/Resident if questions or concerns Please call with questions during daytime. See below for overnight issues. If you know the resident's name on the appropriate orthopaedic surgery team, please use [facility] to page resident directly. If questions arise and the appropriate resident can't be reached or you are calling overnight, please contact [phone] ([facility] 7:30 PM - 6:30 AM - Floor Resident) or [phone] (24 hours/day - Consult Resident) Cosigned by Hayder Vu MD at 11/06/2023 6:43 PM PERCH MENDER H MENDER H MENDER * Shane Bowen, OT - 10/27/2023 10:26 [...] not assigned to this patient, please call [phone]. 10/27/23 1023 General Session Type Treatment OT Received On [...] task) LE Dressing: Equipment Utilized Sock aid;Dressing stick;It Quality Analyst Toileting Toileting: Where assessed Toilet Toileting: Level [...] independence. 10/25/23 11/22/23 -- Reviewed By Ana Hampton, NARENDRA 10/26/23 5390 Nathen Maharaj RN 10/24/23 9921 H MENDER * Nasir Manzanares MD - 10/27/2023 8:02 [...] For susceptibility results, refer to accession number [id number] on the urine culture from 10/11/23 MICROBIOLOGY [...] Dressing on for 5 days (comes down 12/24) and then will be switched to island dressing Nasir Manzanares M.D. Department of Orthopaedic Surgery, PGY-3 [facility] [place] [facility] Please use [facility] [facility] to page/call the appropriate Orthopaedic Surgery Team/Resident if questions or concerns Please call with questions during daytime. See below for overnight issues. If you know the resident's name on the appropriate orthopaedic surgery team, please use [employer] to page resident directly. If questions arise and the appropriate resident can't be reached or you are calling overnight, please contact [phone] ([place]- 7:30 PM - 6:30 AM - Floor Resident) or [phone] (24 hours/day - Consult Resident) Cosigned by Hayder Vu MD at 11/06/2023 6:43 PM PERCH MENDER H MENDER H MENDER * Ana Hampton RN - 10/26/2023 5:44 PM CST Pt transferred to room [address] [place] [address] Face to face report given to annetta MACKEY. belongings transferred with pt. Heparin gtt to be d/c. Labs obtained prior to transfer. H MENDER * Luana Singh RD - 10/26/2023 3:07 [...] Adult Diet Regular Diet effective now Question: ([facility]) Diet type Answer: Regular 10/25/23 0532 10/24/23 2100 Bedtime snack At bedtime Comments: If bedtime BG is less than 100mg/dl, give patient a 15 gram carbohydrate snack. 10/24/23 0353 Assessment / Impression: Pt screened [place] x14 [place] [address] overnight. Spoke to pt and at bedside. Reports pt was eating well ASSEMBLER INSULATOR, appetite reduced following his surgery but has [...] RD following. Joleen Singh, MS, RD, LD [facility] [phone] On-call/weekend: [phone] H MENDER * Aston Tran PTA - 10/26/2023 2:05 PM CST 10/26/23 1405 PT Last Visit PT Missed Visit Reason Family declined;Other (comment) (Pt's has politely declined PT at this time citing increased pain and fatigue following prior OT session. Pt's requests that PT staff follow-up in AM.) Recommendation/Plan PT - Next Appointment 10/27/23 H MENDER * Shane Bowen OT - 10/26/2023 9:53 [...] not assigned to this patient, please call [phone]. 10/26/23 3031 General Session Type Treatment OT Received On [...] for task) LE Dressing: Equipment Utilized Sock aid;It Quality Analyst;Dressing stick Toileting Toileting: Where assessed Chair Toileting: [...] -- Reviewed By Nathen Maharaj RN 10/24/231800 H MENDER * Nasir Manzanares MD - 10/26/2023 7:08 [...] For susceptibility results, refer to accession number [id number] on the urine culture from 10/11/23 MICROBIOLOGY [...] Surgery, PGY-3 [facility] Please use [facility] to page/call the appropriate Orthopaedic Surgery Team/Resident if questions or concerns Please call with questions during daytime. See below for overnight issues. If you know the resident's name on the appropriate orthopaedic surgery team, please use [facility] to page resident directly. If questions arise and the appropriate resident can't be reached or you are calling overnight, please contact [phone] ([place]- 7:30 PM - 6:30 AM - Floor Resident) or [phone] (24 hours/day - Consult Resident) Cosigned by Hayder Vu MD at 10/26/2023 1:04 PM PERCH MENDER H MENDER H MENDER H MENDER Associated attestation - Hayder Vu Jr., MD - 10/26/2023 1:04 PM PERCH MENDER Attending Attestation I have seen and examined [...] questions were answered. Hayder Vu Jr., MD [employer] Department of Orthopaedic Surgery Division of Spine Surgery [facility] [place], [place] Quirk Sander done by [employer]; therefore, variances and [...] at 10/25/20232108 Last data filed at 10/25/2023 190 Gross per 24 hour Intake 2470.88 ml [...] been reviewed with attending, Dr. Adis Nolan, [facility] Critical Care Performed by: Tia Nolan [...] plan with the patient's team and other medical/workforce consultant staff. 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 Otherwise no c/f falls prior Prior Function Comments: Patient reports symptoms began in 07/2023; however, ASSEMBLER INSULATOR was IND with all I/ADLs and was [...] and address after me: Hayder Reddy [address] [place] [address] Without looking at the clock, tell me [...] -- Reviewed By Nathen Maharaj RN 10/24/23 8067 For questions, please review the treatment team and contact the occupational therapist currently assigned to this patient. If an occupational therapist is not assigned to this patient, please call [phone]. H MENDER * Alisa Nath, PT - 10/25/2023 8:30 [...] treatment team and contact the PT or ASSEMBLER INSULATOR currently assigned to this patient. If a physical therapy clinician is not assigned to this patient, please call [phone]. 10/25/23 0830 PT Last Visit Session Type [...] roll Reviewed By Nathen Maharaj RN 10/24/231800 H MENDER * Nasir Manzanares MD - 10/25/2023 7:53 [...] For susceptibility results, refer to accession number [id number] on the urine culture from 10/11/23 MICROBIOLOGY [...] M.D. Department of Orthopaedic Surgery, PGY-3 [facility] [place]/[facility] Please use [facility] [facility] to page/call the appropriate Orthopaedic Surgery Team/Resident if questions or concerns Please call with questions during daytime. See below for overnight issues. If you know the resident's name on the appropriate orthopaedic surgery team, please use [facility] to page resident directly. If questions arise and the appropriate resident can't be reached or you are calling overnight, please contact [phone] ([place]- 7:30 PM - 6:30 AM - Floor Resident) or [phone] (24 hours/day - Consult Resident) Cosigned by Hayder Vu MD at 10/26/2023 12:58 PM PERCH MENDER H MENDER H MENDER * Luana Brady NP - 10/25/2023 7:04 [...] Avel Bourne MD at 10/26/2023 5:50 PM PERCH MENDER H MENDER H MENDER * Hayden Barton MD - 10/24/2023 6:26 [...] EKG/Min 82 BPM Atrial Rate 82 BPM WI-Interval (MSEC) 166 ms QRS-Interval (MSEC) 78 ms QT-Interval (MSEC) 384 ms QTc 448 ms P [place] 34 degrees R [place] -30 degrees T [place] -13 degrees Diagnosis Normal sinus rhythm Left [...] Arceo Jr., MD at 10/25/2023 3:43 AM PERCH MENDER H MENDER H MENDER * Javad Sow, PT - 10/24/2023 12:03 PM CST Physical Therapy 10/24/23 1203 General PT Missed Visit Reason Family declined (request to allow patient to sleep) H MENDER * Dari Dickens, [facility] - 10/24/2023 10:51 AM CST Patient profile has been reviewed by clinical pharmacy stock clerk on 10/24/2023. Case reviewed on rounds with [...] 250 mL, intravenous, Q15 Min PRN, Too Garcia, MD [Held by Provider] dilTIAZem XR (CARDIZEM CD,DILACOR XR) 24 hour capsule 240 mg, 240 mg, oral, BID,Nasir Manzanares MD, 240 mg at 10/23/23 0941 gabapentin (NEURONTIN) capsule 300 mg, 300 mg, oral, Q8H [facility], Amos Langley NP glucagon injection 1 [...] injection 0-10 Units, 0-10 Units, subcutaneous, Q4H [facility], Too Garcia MD, 2 Units at 10/24/23 0451 levETIRAcetam (KEPPRA) 1,000 mg/100 mL in sodium chloride (premix) 1,000 mg, 1,000 mg, intravenous,Q12H [facility] Nneoma Stephanie, MD, 1,000 mg at 10/24/23 0936 [Held by Provider] multivit hlfxtkfl-hfhm-ZY-calcium (THERA-M) tablet 1 tablet, 1 tablet, oral, [...] Nasir Manzanares MD, 0.8 mg at 10/22/23 183 vancomycin 1500 mg/515 mL in sodium chloride 0.9% (premix) 1,500 mg, 1,500 mg, intravenous, Q12H, Oneyda Foley, HOST Dari Dickens RPh, PharmD, BCPS, BCCCP H MENDER * Rob Langley, HOST - 10/24/2023 6:48 AM CSTAssociated Order(s): Critical Care Post-Procedure Diagnose(s): Cardiac arrest (HCC) Surgical ICU Daily Progress Team: Blue GREGORIA Erickson Hira Evans is a 73 y.o. [...] 84 (Critical) 40 - 50 mmHg pO2, artruo POC 42 mmHg Na, POC 139 135 [...] EKG/Min 82 BPM Atrial Rate 82 BPM WI-Interval (MSEC) 166 ms QRS-Interval (MSEC) 78 ms QT-Interval (MSEC) 384 ms QTc 448 ms P [place] 34 degrees R [place] -30 degrees T [place] -13 degrees Diagnosis Normal sinus rhythm Left [...] plan with the ICU team and other medical/workforce consultant staff, making frequent assessments and decisions [...] Avel Bourne MD at 10/24/2023 6:17 PM PERCH MENDER H MENDER H MENDER H MENDER * Ata Marquez MD - 10/24/2023 5:56 [...] resuscitation in ICU. Edited by: Oneyda Foley HOST at 10/23/2023 8464 Objective Vitals: 24hr Min/Max: Temp Min: 36.5 [...] 5/5 5/5 Wrist flexion (C7) 4/5 5/5 Supervisor Intermediates (C8) 4/5 5/5 Interosseous of hand (T1) [...] For susceptibility results, refer to accession number [id number] on the urine culture from 10/11/23 MICROBIOLOGY [...] M.D. Department of Orthopaedic Surgery, PGY-3 [facility] in [place]/[facility] Please use [employer] to page/call the appropriate Orthopaedic Surgery Team/Resident if questions or concerns Please call with questions during daytime. See below for overnight issues. If you know the resident's name on the appropriate orthopaedic surgery team, please use [employer] to page resident directly. If questions arise and the appropriate resident can't be reached or you are calling overnight, please contact [phone] ([place]- 7:30 PM - 6:30 AM - Floor Resident) or [phone] (24 hours/day - Consult Resident) Cosigned by Hayder Vu MD at 10/24/2023 1:48 PM PERCH MENDER H MENDER H MENDER Associated attestation - Hayder Vu Jr., MD - 10/24/2023 1:48 PM PERCH MENDER Attending Attestation I have seen and examined [...] questions or concerns. Hayder Vu Jr., MD [employer] Department of Orthopaedic Surgery Division of Spine Surgery [place], [place] Qu[employer] Sander done by [employer]; therefore, variances and [...] 0.9%, 30 mL, intravenous, PRN [JAN Hold] HYDROmorphone, 0.2 mg, intravenous, Q4H PRN [JAN Hold] hydrOXYzine, 25 mg, oral, BID PRN Lactated Ringer's, , , [JAN Hold] ondansetron ODT, 4 mg, oral, Q6H PRN OR [JAN Hold] ondansetron, 4 mg, intravenous, Q6H PRN [JAN Hold] oxyCODONE, 5 mg, oral, Q4H PRN [Jan] ramelteon, 8 mg, oral, Nightly PRN [Jan] sodium chloride 0.9%, 0.5-20 mL, intra-catheter, PRN [JAN Hold] sodium chloride 0.9%, 0.5-20 mL, intra-catheter, PRN [...] 20 G Left Antecubital (Active) Peripheral IV 12/14/23 18 G Right Hand (Active) Urethral Catheter [...] of spine with ortho. Pipe Moseley MD H MENDER * Luciana Dickerson, PT - 10/23/2023 8:28 AM CST Physical Therapy 10/23/23 0828 General PT Missed Visit Reason Other (comment) (Per medical chart, pending OR today with ortho spine. Will follow up once post-op) H MENDER * Nasir Manzanares MD - 10/23/2023 6:14 [...] Exam LLE 4- IP/Q, 4+ H/EHL/TA/GSC o/w 5/ RLE and BUE. SILT throughout. Plan for [...] For susceptibility results, refer to accession number [id number] on the urine culture from 10/11/23 MICROBIOLOGY [...] the appropriate orthopaedic surgery team, please use [email or web address] to page resident directly. If questions arise and the appropriate resident can't be reached or you are calling overnight, please contact [phone] ([place]- 7:30 PM - 6:30 AM - Floor Resident) or [phone] (24 hours/day - Consult Resident) Cosigned by Hayder Vu MD at 10/23/2023 4:10 PM PERCH MENDER H MENDER H MENDER Associated attestation - Hayder Vu Jr., MD - 10/23/2023 4:10 PM PERCH MENDER Attending Attestation I have seen and examined [...] tibialis anterior, EHL. Hayder Vu Jr., MD [employer] Department of Orthopaedic Surgery Division of Spine Surgery [facility] [place], [place] [employer] done by [employer]; therefore, variances and inaccuracies may occur. * Jimenez Henao MD - 10/22/2023 3:29 PM CST Daily Progress Note Division of Hospital Medicine Name: Hira Evans : 1950 Today's Date: October 22, 2023 Age: 73 y.o. male Admission: 10/12/2023 Bed: [id number] LOS: 9 days Subjective Chief complaint: back [...] 33 minutes which was spent performing a lqat-pd-akvd encounter and personally completing the provider-level activities documented in the note. This includes time spent prior to the visit and after the visit in direct care of the patient. This time does not include time spent in any separately reportable services. Jimenez Henao MD H MENDER * Zehra Cook MD - 10/22/2023 6:43 [...] upcoming Tuesday 10/23. Please make NPO at [place], hold DVT prophylaxis. Edited by: Zehra Cook [...] [facility] Lab/Diagnostic Review: Recent Labs Lab Units 10/21/23 2252 10/18/23212810/17/232 SODIUM mmol/L 136 < > 133* POTASSIUM [...] For susceptibility results, refer to accession number [id number] on the urine culture from 10/11/23 MICROBIOLOGY [...] Edited by: Zehra Cook MD at 10/22/2023 0674 Please call with questions during daytime. See below for overnight issues. If you know the resident's name on the appropriate orthopaedic surgery team, please use [email or web address] to page resident directly. If questions arise and the appropriate resident can't be reached or you are calling overnight, please contact [phone] ([place]- 7:30 PM - 6:30 AM - Floor Resident) or [phone] (24 hours/day - Consult Resident) Cosigned by Hadyer Vu MD at 10/23/2023 7:36 AM PERCH MENDER H MENDER H MENDER * Jimenez Henao MD - 10/21/2023 10:51 AM CST Daily Progress Note Division of Hospital Medicine Name: Hira Evans : 1950 Today's Date: October 21, 2023 Age: 73 y.o. male Admission: 10/12/2023 Bed: [id number] LOS: 8 days Subjective Chief complaint: back [...] 28 minutes which was spent performing a jtyx-wr-aqdt encounter and personally completing the provider-level activities documented in the note. This includes time spent prior to the visit and after the visit in direct care of the patient. This time does not include time spent in any separately reportable services. Jimenez Henao MD H MENDER * Jimenez Henao MD - 10/20/2023 2:55 PM CST Daily Progress Note Division of Hospital Medicine Name: Hira Evans : 1950 Today's Date: October 20, 2023 Age: 73 y.o. male Admission: 10/12/2023 Bed: [id number] LOS: 7 days Subjective Chief complaint: back [...] 28 minutes which was spent performing a vvph-da-ewlm encounter and personally completing the provider-level activities documented in the note. This includes time spent prior to the visit and after the visit in direct care of the patient. This time does not include time spent in any separately reportable services. Jimenez Henao MD H MENDER * Belen Hennessy PA - 10/19/2023 1:59 [...] Belen Hennessy PA-C Interventional Radiology Available via [employer] Chat M-F 7 AM until 3 PM IR call pager M-F after 3 PM or on weekends If the patient does not already have a follow-up appointment arranged, please place order and then please call the [facility] front window cashier at between 7:30 AM and 4:00 PM. H MENDER * Jimenez Henao MD - 10/19/2023 12:50 PM CST Daily Progress Note Division of [facility] Medicine Name: Hira Evans : 1950 Today's Date: October 19, 2023 Age: 73 y.o. male Admission: 10/12/2023 Bed: [id number]/[id number] LOS: 6 days Subjective Chief complaint: back [...] 50 minutes which was spent performing a mumr-ie-oogv encounter and personally completing the provider-level activities documented in the note. This includes time spent prior to the visit and after the visit in direct care of the patient. This time does not include time spent in any separately reportable services. Jimenez Henao MD H MENDER * Jimenez Henao MD - 10/18/2023 5:15 PM CST Daily Progress Note Division of Hospital Medicine Name: Hira Evans : 1950 Today's Date: October 18, 2023 Age: 73 y.o. male Admission: 10/12/2023 Bed: [id number] LOS: 5 days Subjective Chief complaint: back [...] 55 minutes which was spent performing a leir-wf-tzvy encounter and personally completing the provider-level activities documented in the note. This includes time spent prior to the visit and after the visit in direct care of the patient. This time does not include time spent in any separately reportable services. Jimenez Henao MD H MENDER * Osorio Calle MD - 10/18/2023 6:54 [...] For susceptibility results, refer to accession number [id number] on the urine culture from 10/11/23 MICROBIOLOGY [...] the appropriate orthopaedic surgery team, please use [email or web address] to page resident directly. If questions arise and the appropriate resident can't be reached or you are calling overnight, please contact [phone] ([facility] 7:30 PM - 6:30 AM - Floor Resident) or [phone] (24 hours/day - Consult Resident) Cosigned by Hayder Vu MD at 10/18/2023 12:31 PM PERCH MENDER H MENDER H MENDER * Michelle Harris PA - 10/17/2023 3:10 [...] 10 ml NS TID and record in [employer]. - Appreciate nursing care. Continue daily dressing changes and as needed, if soiled or dislodged. Monitor skin site. - IR to continue to follow. Michelle Harris PA-C Interventional Radiology Available via [employer] Chat M-F 7 AM until 3 PM. IR call pager M-F after 3 PM or on weekends. If the patient does not already have a follow-up appointment arranged, please place order and then please call the [facility] front window cashier at between 7:30 AM and 4:00 PM. H MENDER * Jimenez Henao MD - 10/17/2023 2:46 PM CST Daily Progress Note Division of Hospital Medicine Name: Hira Evans : 1950 Today's Date: October 17, 2023 Age: 73 y.o. male Admission: 10/12/2023 Bed: [id number] LOS: 4 days Subjective Chief complaint: back [...] 60 minutes which was spent performing a htum-sj-opjl encounter and personally completing the provider-level activities documented in the note. This includes time spent prior to the visit and after the visit in direct care of the patient. This time does not include time spent in any separately reportable services. Jimenez Henao MD H MENDER * Luciana Dickerson, PT - 10/17/2023 2:21 [...] POC Prior Function Prior Function Level of [place]: Independent functional transfers, Independent with ambulation Lives With: Spouse Receives Help From: Spouse/Significant other (multimedia engineer assist as needed) Fall within the last [...] all mobility to allow return to PLOF H MENDER * Hayden Youngblood MD - 10/17/2023 8:30 [...] For susceptibility results, refer to accession number [id number] on the urine culture from 10/11/23 MICROBIOLOGY [...] the appropriate orthopaedic surgery team, please use [email or web address] to page resident directly. If questions arise and the appropriate resident can't be reached or you are calling overnight, please contact [phone] ([place]- 7:30 PM - 6:30 AM - Floor Resident) or [phone] (24 hours/day - Consult Resident) Cosigned by Hayder Vu MD at 10/17/2023 8:47 AM PERCH MENDER H MENDER H MENDER * Hayder Vu MD - 10/17/2023 7:19 [...] questions or concerns. Hayder Vu Jr., MD [employer] Department of Orthopaedic Surgery Division of Spine Surgery [facility] [place], [place] H MENDER H MENDER * Jimenez Henao MD - 10/16/2023 12:31 PM CST Daily Progress Note Division of Hospital Medicine Name: Hira Evans : 1950 Today's Date: October 16, 2023 Age: 73 y.o. male Admission: 10/12/2023 Bed: [id number] LOS: 3 days Subjective Chief complaint: back [...] and agrees with it. Electronically signed by: Kendirck Hughes M.D. Assessment/Plan Left perinephric collection, likely [...] 80 minutes which was spent performing a gnpa-ti-ysmb encounter and personally completing the provider-level activities documented in the note. This includes time spent prior to the visit and after the visit in direct care of the patient. This time does not include time spent in any separately reportable services. Jimenez Henao MD H MENDER * Collin Barnes MD - 10/16/2023 8:24 [...] (mL) 10/14/23 0700 - 10/14/23 1859 10/14/23 190 - 10/15/23 0659 10/15/23 0700 - 10/15/23 1859 10/15/23 1900 - 10/16/23 0659 10/16/23 0700 - 10/16/23 0824 Requested LDAs do not have output data documented. Assessment and Plan: 73-year-old male with left hydroureter due to obstructing stone s/p L PCN placement on 08/16. -Continue to flush 10 mL normal saline every 8 hours. -Continue to monitor drainage output. H MENDER * Hayden Youngblood MD - 10/16/2023 6:46 [...] For susceptibility results, refer to accession number [id number] on the urine culture from 10/11/23 MICROBIOLOGY [...] the appropriate orthopaedic surgery team, please use [email or web address] to page resident directly. If questions arise and the appropriate resident can't be reached or you are calling overnight, please contact [phone] ([facility] 7:30 PM - 6:30 AM - Floor Resident) or [phone] (24 hours/day - Consult Resident) Cosigned by Hayder Vu MD at 10/16/2023 7:19 AM PERCH MENDER H MENDER H MENDER * Marquise Lim MD - 10/15/2023 8:52 AM CST Daily Progress Note Division of Hospital Medicine Name: Hira Evans : 1950 Today's Date: October 15, 2023 Age: 73 y.o. male Admission: 10/12/2023 Bed: [id number] LOS: 2 days Subjective Chief complaint: back [...] 80 minutes which was spent performing a osij-td-foml encounter and personally completing the provider-level activities documented in the note. This includes time spent prior to the visit and after the visit in direct care of the patient. This time does not include time spent in any separately reportable services. Marquise Lim MD H MENDER * Ana Alfaro MD - 10/15/2023 7:20 [...] For susceptibility results, refer to accession number [id number] on the urine culture from 10/11/23 Exam: Left PCN site c/d/i. Assessment and Plan: 73-year old man with partially obstructing left ureteral stone post left PCN placement in 10/14/2023. Continue to flush 10 mL normal saline every 8 hours. Continue to monitor drainage output. 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 If questions arise and the appropriate resident can't be reached or you are calling overnight, please contact [phone] ([place]- 7:30 PM - 6:30 AM - Floor Resident) or [phone] (24 hours/day - Consult Resident) Cosigned by Hayder Vu MD at 10/15/2023 8:54 AM PERCH MENDER H MENDER H MENDER Associated attestation - Hayder Vu Jr., MD - 10/15/2023 8:54 AM PERCH MENDER Attending Attestation I have seen and examined [...] of Mr. Evans. Hayder Vu Jr., MD [employer] Department of Orthopaedic Surgery Division of Spine Surgery [facility], [place] [employer]ander done by [employer]; therefore, variances and [...] For susceptibility results, refer to accession number [id number] on the urine culture from 10/11/23 MICROBIOLOGY [...] the appropriate orthopaedic surgery team, please use [email or web address] to page resident directly. If questions arise and the appropriate resident can't be reached or you are calling overnight, please contact [phone] ([place] 7:30 PM - 6:30 AM - Floor Resident) or [phone] (24 hours/day - Consult Resident) Cosigned by Hayder Vu MD at 10/15/2023 9:21 AM PERCH MENDER H MENDER H MENDER H MENDER Associated attestation - Hayder Vu Jr., MD - 10/15/2023 9:21 AM PERCH MENDER I agree with the resident's note with [...] Age: 73 y.o. male Admission: 10/12/2023 Bed: [id number] LOS: 1 days Subjective Chief complaint: fever+chills [...] sodium chloride 0.9%, 75 mL/hr, Last Rate: 75mL/hr (10/14/23 0902) sodium chloride 0.9%, 30 mL/hr [...] 70 minutes which was spent performing a lxia-vk-lopg encounter and personally completing the provider-level activities documented in the note. This includes time spent prior to the visit and after the visit in direct care of the patient. This time does not include time spent in any separately reportable services. Marquise Lim MD H MENDER * Marquise Lim MD - 10/13/2023 7:43 AM CST Daily Progress Note Division of Hospital Medicine Name: Hira Evans : 1950 Today's Date: October 13, 2023 Age: 73 y.o. male Admission: 10/12/2023 Bed: [id number] LOS: 0 days Subjective Chief complaint: Sepsis [...] : / Supplementary Attestation Marquise Lim MD H MENDER documented in this encounter H&P Notes * [...] 1 tablet (10 mg total) by mouth phlebotomist associate before breakfast cholecalciferol (VITAMIN D-3) 5,000 unit capsule Take 1 capsule (5,000 Units total) by mouth every morning coenzyme Q10 100 mg capsule Take 1 capsule (100 mg total) by mouth phlebotomist associate before breakfast DILT-XR 240 mg 24 hr capsule Take 1 capsule (240 mg total) by mouth 2 (two) times a day 0 fish,bora,flax oils-om3,6,9no1 400-400-400 mg capsule Take 1 tablet by mouth phlebotomist associate before breakfast irbesartan (AVAPRO) 300 mg tablet [...] Reyes MD 10/23/23 10:16 PM Cosigned by Widler Arceo Jr., MD at 10/24/2023 5:52 AM PERCH MENDER H MENDER H MENDER Associated attestation - Wilder Arceo Jr., MD - 10/24/2023 5:52 AM PERCH MENDER Critical Care Time: I have spent 75 [...] plan with the ICU team and other medical/workforce consultant staff. Wilder Arceo Jr., MD * [...] for OR today from a medical standpoint. H MENDER H MENDER Source Note - Severo Merlos MD - 10/13/2023 5:00 AM PERCH MENDER History and Physical Division of [facility] Medicine Name: Hira Evans : 1950 Today's Date: October 13, 2023 Age: 73 y.o. male Admit Date: 10/12/2023 Bed: [id number]/[id number] LOS: 0 days Subjective Hira Evans is [...] 1 tablet (10 mg total) by mouth phlebotomist associate before breakfast cholecalciferol (VITAMIN D-3) 5,000 unit capsule Take 1 capsule (5,000 Units total) by mouth every morning coenzyme Q10 100 mg capsule Take 1 capsule (100 mg total) by mouth phlebotomist associate before breakfast DILT-XR 240 mg 24 hr capsule Take 1 capsule (240 mg total) by mouth 2 (two) times a day fish,bora,flax oils-om3,6,9no1 400-400-400 mg capsule Take 1 tablet by mouth phlebotomist associate before breakfast irbesartan (AVAPRO) 300 mg tablet [...] 60 minutes which was spent performing a fztu-ct-jrff encounter and personally completing the provider-level activities documented in the note. This includes time spent prior to the visit and after the visit in direct care of the patient. This time does not include time spent in any separately reportable services. Severo Merlos MD H MENDER * Gabriel Bennett MD - 10/18/2023 9:06 AM CST I have reviewed the H&P, examined the patient, and endorse the findings as written. Plan of Care : Based on the above findings, I consider Hira Evans to be an acceptable risk for : Procedure(s): CYSTOSCOPY PYELOGRAM - RETROGRADE LITHOTRIPSY - LASER URETEROSCOPY H MENDER Source Note - Fredrick Mcneil MD - 10/12/2023 10:45 PM PERCH MENDER Images from the original note were not [...] to concerning symptoms, he was transferred to [facility] ED for further workup. Patient's reports that [...] - Physical Exam: Vitals: 10/12/23 1925 10/12/23 19310/12/23199910/12/232029 BP: 136/81 143/81 131/83 143/83 Pulse: 88 79 78 69 Resp: 18 17 22 Temp: SpO2: 100% 98% [...] or concerns, please page Urology through the master control operator. Vero Tolentino MD 10/12/2023 H MENDER H MENDER H MENDER * Severo Merlos MD - 10/13/2023 5:00 AM CST History and Physical Division of [facility] Medicine Name: Hira Evans : 1950 Today's Date: October 13, 2023 Age: 73 y.o. 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 Electronically signed by: Zac Too Mcgarry, M.D. Assessment/Plan UTI (urinary tract infection) Assessment [...] 60 minutes which was spent performing a dadk-xj-hglb encounter and personally completing the provider-level activities documented in the note. This includes time spent prior to the visit and after the visit in direct care of the patient. This time does not include time spent in any separately reportable services. Severo Merlos MD H MENDER documented in this encounter Procedure Notes * [...] plan with the patient's team and other medical/workforce consultant staff. This time was in addition to and separate from care provided by other practitioners on this day of service. H MENDER * Wilder Arceo Jr., MD - 10/24/2023 [...] plan with the ICU team and other medical/workforce consultant staff, making frequent assessments and decisions [...] hemorrhage, Acute pain/acute postoperative pain and Seizure Rcz-CA-Rlwsrbboa mycardial infarction (Non-STEMI) and Cardiac arrest Hypo- [...] spent time documenting in the medical record H MENDER * Wilder Arceo Jr., MD - 10/23/2023 [...] plan with the ICU team and other medical/workforce consultant staff, making frequent assessments and decisions [...] spent time documenting in the medical record H MENDER documented in this encounter Consult Notes * Yumiko Rome MD - 10/28/2023 9:48 AM CSTAssociated Order(s): IP CONSULT TO NEUROSURGERY Neurosurgery Consultation Patient: Hira Evans CSN: [id number] : 1950 Admission date: 10/12/2023 Length of [...] open L4-5 posterior spinal [facility], laminectomy autograft and allograft). Postprocedure, [...] His , Neelima, can be reached at [phone] Family history: Reviewed and noncontributory. Physical Examination: [...] discussed with the chief resident and attending cotton grower. The patient was evaluated within 30 minutes of consultation Yumiko Rome MD Cosigned by Jeremy Mojica MD at 10/30/2023 3:48 PM PERCH MENDER H MENDER H MENDER H MENDER Associated attestation - Jeremy Mojica MD - 10/30/2023 3:48 PM PERCH MENDER I have seen and examined the patient [...] 73 y.o. male Admit Date: 10/12/2023 Bed: [id number] LOS: 13 days Subjective HPI 73 year [...] 1 tablet (10 mg total) by mouth phlebotomist associate before breakfast cholecalciferol (VITAMIN D-3) 5,000 unit capsule Take 1 capsule (5,000 Units total) by mouth every morning coenzyme Q10 100 mg capsule Take 1 capsule (100 mg total) by mouth phlebotomist associate before breakfast DILT-XR 240 mg 24 hr capsule Take 1 capsule (240 mg total) by mouth 2 (two) times a day fish,bora,flax oils-om3,6,9no1 400-400-400 mg capsule Take 1 tablet by mouth phlebotomist associate before breakfast irbesartan (AVAPRO) 300 mg tablet [...] Medicine Consults will sign off. Please call [phone] for further questions. Viry Patterson MD Cosigned by Ryan London MD at 10/26/2023 5:20 PM PERCH MENDER H MENDER H MENDER Associated attestation - Ryan London MD - 10/26/2023 5:20 PM PERCH MENDER Attending Documentation I have seen and examined [...] mg/mL injection - ADS Override Pull multivit ptzfpoxv-kgvi-HW-calcium (THERA-M) tablet 1 tablet 1 tablet oral [...] Labs Lab Units 10/24/23 0020 10/23/23 2302 10/23/23 2239 10/23/23 2207 10/23/23 21510/23/23 21510/22/239 SODIUM mmol/L -- 137 -- -- 143 [...] interval not displayed. Recent Labs Lab Units 10/23/23 2302 ALK PHOS Units/L 91 BILIRUBIN TOTAL mg/dL [...] Gypsy Pelletier M.D. The radiology attending physician haspersonally reviewed this [...] unlikely the patient will require anti-seizure medication longterm, but it is reasonable to continue AEDs [...] will decide whether he needs this medication longterm depending on the workup. Thank you for this consult. Neurology Consult Call Back: [phone] (senior phone). Please do nothesitate to contact us with any questions or concerns, and specify that this consult was staffed with consult team A. Zaheer Bennett MD, PHD Neurology Resident, PGY-2 10/24/2023 1:15 AM Cosigned by Steve Funk MD PhD at 10/24/2023 10:51 PM PERCH MENDER H MENDER H MENDER H MENDER H MENDER Associated attestation - Steve Funk MD PhD - 10/24/2023 10:51 PM PERCH MENDER I have seen and examined the patient [...] to concerning symptoms, he was transferred to [facility] ED for further workup. Patient's reports that [...] or concerns, please page Urology through the master control operator. Vero Tolentino MD 10/12/2023 H MENDER H MENDER H MENDER * Hayden Youngblood MD - 10/12/2023 7:22 [...] 1 tablet (10 mg total) by mouth phlebotomist associate before breakfast Fidelia Perdue MD cholecalciferol (VITAMIN D-3) 5,000 unit capsule Take 1 capsule (5,000 Units total) by mouth every morning Fidelia Perdue MD coenzyme Q10 100 mg capsule Take 1 capsule (100 mg total) by mouth phlebotomist associate before breakfast Fidelia Perdue MD DILT-XR 240 mg 24 hr capsule Take 1 capsule (240 mg total) by mouth 2 (two) times a day 05/12/19 Fidelia Perdue MD fish,bora,flax oils-om3,6,9no1 400-400-400 mg capsule Take 1 tablet by mouth phlebotomist associate before breakfast Fidelia Perdue MD irbesartan (AVAPRO) [...] extension 5/5 5/5 Wrist flexion 5/5 5/5 Supervisor Intermediates 5/5 5/5 Interosseous of hand 5/5 5/5 [...] Ph.D. Department of Orthopaedic Surgery, PGY-2 [facility] in [facility] Please use [facility] to page/call the appropriate Orthopaedic Surgery Team/Resident if questions or concerns. Normal business hours: If you know the resident's name on the appropriate orthopaedic surgery team,please use the Directory Search at [facility] to page resident directly. If questions arise and the appropriate resident can't be reached or you are calling overnight, please contact [phone] ([place]- 7:30 PM - 6:30 AM - Floor Resident) or [phone] (24 hours/day - Consult Resident) Cosigned by Hayder Vu MD at 10/14/2023 10:41 PM PERCH MENDER H MENDER H MENDER documented in this encounter Nursing Notes * Sherice Wilcox RN - 10/24/2023 1:21 AM CST Fredrick MACKEY [place] [id number] in anticipation of admission to our unit.Post op, patient went to ICU. AN brought bag of patient belongings to current room 4401. H MENDER * Nolvia Gonzales RN - 10/23/2023 10:20 [...] Anesthesia at bedside tobring patient to ICU. H MENDER * Fredrick Sheffield RN - 10/23/2023 7:04 PM CST Patient belongings (blanket, jacket, shoes, mirror, shirt, pajama pants) brought to unit [address], where patient is transferring. Entire room searched for belongings, all belongings found in [place] [address]. H MENDER * Frieda Cai RN - 10/18/2023 6:14 PM CST Patient went to surgery today and got a stent place, the catheter was changed during surgery. No drainage or leakage around the harris cath noted. H MENDER * Ad Parikh RN - 10/16/2023 3:01 PM CST Assumed care for patient at 1500. This Rn agrees with previous RN's assessment. Patient A&ox4 and resting in bed. Will continue to monitor. H MENDER * Adia Poole RN - 10/15/2023 7:44 [...] needs, and inagreement with bedside shift report. H MENDER documented in this encounter ED Notes * Justice Vivas RN - 10/12/2023 6:25 PM CST Bed: ED1-14 Expected date: Expected time: Means of arrival: Car Comments: Justice Vivas RN 10/12/23 6019 H MENDER * Amol Hargrove MD - 10/12/2023 6:22 [...] E coli. Patient was sent to the [facility] ED at the instruction of Dr. Vu [...] Date Allergic rhinitis Arthritis OA Cancer (CMS/HCC) ([facility]) prostate and melonomia Gastric reflux GERD (gastroesophageal [...] of Care ED Course as of 10/12/23 2252 Time: 10/12 1840 Comment: Attending physician assessment [...] Rafael Cowan MD at 10/14/2023 12:05 AM PERCH MENDER H MENDER H MENDER Associated attestation - Rafael Cowan MD - 10/14/2023 12:05 AM PERCH MENDER I have seen and examined the patient [...] spinal surgery on Sunday. Reports malodorous urine. H MENDER documented in this encounter Miscellaneous Notes * Provider Query - Hayder Vu MD - 10/30/2023 4:07 PM PERCH MENDER Greetings Dr. Vu Please clarify if sepsis [...] the patient???s medical record. Sincerely, Boaz Harris [facility] Information Management H MENDER * Provider Query - Hayder Vu MD - 10/30/2023 4:07 PM PERCH MENDER Greetings Dr. Vu, Both respiratory failure and [...] the patient???s medical record. Sincerely, Boaz Harris [facility] Information Management H MENDER * Plan of Care - Nathalie Herrera RN - 10/30/2023 2:38 PM CST [facility] unable to accept due to insurance. Referrals sent to remaining home health agencies that serve patient's zip code: [facility]---unable to accept due to staffing limitations [facility]----no longer open [facility]---unable to accept due to staffing limitations [facility]---unable to accept due to insurance. [facility]--unable to accept due to staffing limitations [facility]--unable to accept due to insurance. At this time, all home health agency options have been exhausted. Unable to secure home health therapy. Called patient's spouse Cynda to update. No further case management needs identified at this time H MENDER H MENDER H MENDER H MENDER * Plan of Care - Matilda Gonzales [...] Declined PRN pain med for trip home. H MENDER * Plan of Care - Nathalie Herrera RN - 10/30/2023 1:21 PM CST [facility] Health has accepted patient pending insurance approval Patient is eager to discharge prior to home health being set up. Patient and MD team agreeable for patient to discharge knowing home health may not be secured due to insurance or staffing limitations. Received permission from patient to send referrals to remaining six home health agencies that serve patient's zip code if [facility] is unable to accept. Will contact patient's Cynda at [phone] if and when home health is secured. H MENDER * Plan of Care - Nathalie Herrera RN - 10/30/2023 9:29 AM CST [facility] unable to accept. H MENDER * Plan of Care - Suzanne Mendoza [...] health care needs will improve Outcome: Progressing H MENDER * Plan of Care - Matilda Gonzales [...] up. EPC used for sacral chaffing. Several cotton grower residents notified regarding drain which accidentally came out during care. H MENDER * Plan of Care - Suzanne Mendoza [...] Goal: Pain level will decrease Outcome: Progressing H MENDER * Plan of Care - Erick Melchor [...] 1610 by Erick Melchor RN Outcome: Progressing H MENDER * Plan of Care - Ritu Marin [...] pain meds. VS and drain output documented. H MENDER * Significant Event - Viry Patterson MD [...] Medicine Consults will sign off. Please call [phone] for further questions. Viry Patterson MD PGY3 Internal Medicine H MENDER * Assessment & Plan Note - Viry Patterson MD - 10/26/2023 5:11 PM PERCH MENDER Associated Problem(s): Pulmonary embolism (HCC) Patient with new PE on CT PE 10/23. Tolerating heparin gtt. Likely provoked in setting of recent surgery. - Patient will need at least 3 months of anticoagulation, and can follow up with PCP for consideration of discontinuation - If no other surgical interventions planned at this time, can transition to therapeutic Lovenox vsEliquis per primary team. H MENDER * Plan of Care - Luana Savage RN - 10/26/2023 2:49 PM CST Per Medical Chart/Rounds/IDR: Per IDR rounds with Pin Ticket Machine Operator, Cost And Sales Record Supervisor, Charge Nurse, and MD, the patient is [...] assistance, please check the treatment team in [facility] for the assigned nurse outreach case manager or contact the weekend Case Management phone H MENDER * Plan of Care - Harvey Horn [...] 2.5L via nasal cannula. Repositioned for comfort. H MENDER H MENDER * Significant Event - Tia Nolan NP - 10/25/2023 8:13 PM PERCH MENDER CHUGG-OUT (SICU to OU/Floor Transfer) SICU MD [...] Ruano of the ortho service. QUESTIONS? Call [phone] ([phone]). H MENDER * Consults, Subsequent - James Silva MD [...] unlikely the patient will require anti-seizure medication superintendent marine oil terminal, but it is reasonable to con tinue [...] provide their number in the discharge instructions: [phone] The neurology consult service will sign off at this time. Please call the neurology consult phone at [phone] (Senior) with questions. James Silva MD Neurology resident PGY-3 H MENDER * Plan of Care - Tamia Holman RN - 10/25/2023 10:41 AM CST Goals: Clinical Goals for the Shift: VSS, pending MRI, pain control, continue heparin drip, PM labs Summary: Plans for the day, pain control, VSS, labs/monitor hepain gtt, MRI pending. H MENDER * Plan of Care - Edwige Porras [...] and injury in home environment Outcome: Defer H MENDER * Initial Assessments - Jacqueline Walker MSW - 10/24/2023 12:27 PM CST Social Work Assessment Clinical Dx: Ureteral colic Past Medical History: Date of last inpatient admission: Previous admit date: N/A Number of inpatient admissions in past year: 1 Reason for Current Hospitalization (Pt/Caregiver Stated): back pain that turned into much more (10/24/231206) Patient Information: Information Obtained From: Patient Marital Status: Does Pt have Legal Guardian, Surrogate Decision Maker or Healthcare Agent? 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 Phan stated that they have a good support system. Do you have a Yazidi Preference or Affiliation?: No Are there any Yazidi Practices that are important to maintain while [...] More than three times a week Attends Yazidi Services: Never Active Member of Clubs or [...] including surrogate decision makers, durable power of contract attorney, and advanced directives. Patient has a POA on file, dated 2007, that spouse, Phan, affirmed to be current. POA lists: Agent: Phan Evans; 1st Alternate: Kaiser Evans, brother; 2nd Alternate: Janene Evans, sister. Patient's spouse, Phan, states that Hira [...] CM following for discharge planning. GEN Medina, COMMUNITY ADMINISTRATOR H MENDER * Significant Event - Nasir Manzanares MD - 10/23/2023 10:14 PM PERCH MENDER At the end of the OR case, [...] Hayder Vu MD at 10/23/2023 11:31 PM PERCH MENDER H MENDER H MENDER Associated attestation - Hayder Vu Jr., MD - 10/23/2023 11:31 PM PERCH MENDER Upon transfer to PACU, patient was noted [...] to follow closely. Hayder Vu Jr., MD [employer] Department of Orthopaedic Surgery Division of Spine Surgery [facility] [place], [place] * Op Note - Hayder Vu MD - 10/23/2023 5:14 PM CST Operative Report Surgeon Hayder Vu MD Bosom Presser(s) Nasir Manzanares MD Anesthesia General endotracheal. Preoperative [...] of the L5 spinous process. A lamina instrument man was placed between the remainder of the [...] placed under fluoroscopic guidance. A Globus Sable [id number] 7-14mm 15 Deg lordo tic cage was [...] obstruction. The decompression was confirmed with a [place] elevator which was able to be passed [...] Implant Name Type Inv. Item Serial No. Traveling Passenger Agent Lot No. LRB No. Used Action [employer]OSOURCE Crushed Chip Frozen Graft 30ml Bone Cancellous [id number] - [id number] [employer]OURCE CrushedChip Frozen Graft 30ml Bone Cancellous [id number] Allosource [id number] N/A 1 Implanted [employer] Allograft Bone Putty 2.5CC 700-025 - [id number] [employer] Allograft Bone Putty2.5CC 700-025 BISSELL [employer] [id number] N/A 1 Implanted [employer] Creo Od7.5 Mm L55 Mm Thread Polyaxial Spine Screw Bone Titanium 5146.1757 - [id number] [employer] Creo Od7.5 Mm L55 Mm Thread Polyaxial Spine Screw Bone Titanium 5146.1757 Globus Medical N/A 1 Implanted [employer] Creo Od7.5 Mm L50 Mm Thread Polyaxial Spine Screw Bone Titanium 5146.1752 - [id number] [employer] Creo Od7.5 Mm L50 Mm Thread Polyaxial Spine Screw Bone Titanium 5146.1752 Globus Medical N/A 3 Implanted [employer] Creo Thread Spinal Cap Locking Nonsterile 1119.0010 - [id number] [employer] Creo Thread Spinal Cap Locking Nonsterile 1119.0010 Gl[employer] N/A 4 Implanted [employer] Implant Spinal Sable [id number] 7-14mm 15 Deg 1172.2121S - [id number] [employer] Implant Spinal Sable [id number] 7-14mm 15 Deg 1172.2121S [employer] N/A 1 Implanted [employer] Creo 5.5mm 45mm Curve Daniel Spinal Titanium 1119.7045 - [id number] [employer] Creo 5.5mm 45mm Curve Daniel Spinal Titanium 1119.7045 [employer] N/A 2 Implanted Specimens None. Counts Correct. Estimated Blood Loss 150 mL. Total IV Fluids 1500 mL. Complications None. Condition on Discharge from OR Stable. Hayder Vu Jr., MD [employer] Department of Orthopaedic Surgery Division of Spine Surgery [facility], [place] Operative Report dictated by Hayder Vu MD on 10/26/23 using Fluency Direct. Transcriptionvariances may occur. H MENDER H MENDER H MENDER * Brief Op Note - Nasir Manzanares MD - 10/23/2023 5:14 PM CST Operative Progress Note Surgical Team: Surgeon(s) and Role: * Hayder Vu MD - Primary * Nasir Manzanares MD - Resident - Assisting Anesthesiologist: Ann Salazar MD GROCERY CARRIER: Deisy Snyder CRNA Manager Billing: Alice Vaughn MD Partition Setter: Yeni Walker RN; Rena Michelle RN Scrub Relief: Sergio-Bibiana, Rad, ST Scrub: Teo Stiles ST [employer] Combination Teacher: Belen Valdez [place] FLOAT: Oneyda Foley NP [...] Implant Name Type Inv. Item Serial No. Traveling Passenger Agent Lot No. LRB No. Used Action [employer]OURCE Crushed Chip Frozen Graft 30ml Bone Cancellous [id number] - [id number] [employer]OURCE CrushedChip Frozen Graft 30ml Bone Cancellous [id number] Allosource [id number] N/A 1 Implanted [employer] Allograft Bone Putty 2.5CC 700-025 - [id number] [employer] Allograft Bone Putty2.5CC 700-025 [employer]ia[employer] Inc [id number] N/A 1 Implanted [employer] Inc. MEDICAL Creo Od7.5 Mm L55 Mm Thread Polyaxial Spine Screw Bone Titanium 5146.1757 - [id number] [employer] Creo Od7.5 Mm L55 Mm Thread Polyaxial Spine Screw Bone Titanium 5146.1757 Globus Medical N/A 1 Implanted [employer] Creo Od7.5 Mm L50 Mm Thread Polyaxial Spine Screw Bone Titanium 5146.1752 - [id number] [employer] Creo Od7.5 Mm L50 Mm Thread Polyaxial Spine Screw Bone Titanium 5146.1752 Globus Medical N/A 3 Implanted [employer] Creo Thread Spinal Cap Locking Nonsterile 1119.0010 - [id number] [employer] Creo Thread Spinal Cap Locking Nonsterile 1119.0010 Globus Medical N/A 4 Implanted [employer] Implant Spinal Sable [id number] 7-14mm 15 Deg 1172.2121S - [id number] [employer] Implant Spinal Sable [id number] 7-14mm 15 Deg 1172.2121S Glob[employer] Medical N/A 1 Implanted [employer] Creo 5.5mm 45mm Curve Daniel Spinal Titanium 1119.7045 - [id number] [employer] Creo 5.5mm 45mm Curve Daniel [...] Hayder Vu MD at 10/26/2023 12:57 PM PERCH MENDER H MENDER H MENDER * Plan of Care - Stefany Crook RN - 10/23/2023 12:06 AM CST Problem: Safety: Goal: Will remain free from falls Outcome: Progressing Goals: Clinical Goals for the Shift: VSS, pain management, safety and comfort Summary: H MENDER * Plan of Care - Lisa Rudolph [...] Goal: Pain level will decrease Outcome: Progressing H MENDER * Plan of Care - Lana Turcios [...] VSS, pain management, safety and comfort Summary: H MENDER * Plan of Care - Harmony Norman [...] Goal: Pain level will decrease Outcome: Progressing H MENDER * Plan of Care - Johnnie Flores [...] with VS WNL, pain free, and safe. H MENDER * Plan of Care - Brandyn Cain [...] Shift: VS WNL, pain control and safety. H MENDER * Plan of Care - Johnnie Flores [...] pain was under control with prn medication. H MENDER * Consults, Subsequent - Vero Tolentino MD - 10/19/2023 10:01 AM PERCH MENDER Images from the original note were not [...] or concerns, please page Urology through the master control operator. Vero Tolentino MD 10/19/2023 Cosigned by Fredrick Mcneil MD at 10/19/2023 10:25 AM PERCH MENDER H MENDER H MENDER * Plan of Care - Brandyn Cain [...] Goal: Pain level will decrease Outcome: Ongoing H MENDER * Plan of Care - Frieda Cai [...] unmanageable or unbearable will improve Outcome: Progressing H MENDER * Plan of Care - Torey Mckenna RN - 10/18/2023 3:26 PM CST Per Medical Chart/Rounds/DCAM: IDR ADD: TBD Plan & referrals made/in place: [facility] [place] [place] Patient went to OR with urology [...] Patient and/or family are agreeable with plan. corporate safety manager will continue to follow and assist with discharge planning as needed. If any further discharge needs arise, please contact the covering nurse outreach case manager. H MENDER * Consults, Subsequent - Vero Tolentino MD - 10/18/2023 3:15 PM PERCH MENDER Images from the original note were not [...] or concerns, please page Urology through the master control operator. Vero Tolentino MD 10/18/2023 Cosigned by Gabriel Bennett MD at 10/18/2023 6:54 PM PERCH MENDER H MENDER H MENDER H MENDER Associated attestation - Gabriel Bennett MD - 10/18/2023 6:54 PM PERCH MENDER I have seen and examined the patient [...] to get PET scan done over on [facility]. H MENDER * Plan of Care - Rosi Fernandes MD - 10/18/2023 11:19 AM PERCH MENDER Mr. Evans is a 73 yo male [...] from 6:00 to 18:00 (Sunday-Sunday), please call [phone].If you want to contact Urology consults after hours (18:00 to 6:00) and over the weekend, please call the master control operator. Cosigned by Gabriel Bennett MD at 10/18/2023 3:59 PM PERCH MENDER H MENDER H MENDER * Op Note - Gabriel Bennett MD - 10/18/2023 8:45 AM CST OPERATIVE REPORT SURGEON Gabriel Bennett M.D. COMMUNICATION LECTURER Vero Tolentino MD ANESTHESIA General. PREOPERATIVE DIAGNOSIS [...] ensure proper patient and proper procedure. A 22-Panamanian rigid cystoscope was introduced into the urethra [...] present and participated in the entire procedure. H MENDER * Plan of Care - Christal García [...] Goal: Pain level will decrease Outcome: Progressing H MENDER * Plan of Care - Lisa Rudolph [...] unmanageable or unbearable will improve Outcome: Progressing H MENDER * Consults, Subsequent - Vero Tolentino MD - 10/17/2023 11:41 AM PERCH MENDER Images from the original note were not [...] or concerns, please page Urology through the master control operator. Vero Tolentino MD 10/17/2023 Cosigned by Maris Montilla MD at 10/18/2023 9:04 AM PERCH MENDER H MENDER H MENDER * Plan of Care - Stacy Tim [...] keep pt free from injury and comfortable H MENDER * Plan of Care - Rebecca Lozano RN - 10/16/2023 2:33 PM CST Goals: Clinical Goals for the Shift: monitor vitals. give meds per order. pain management. keep pt free from injury and comfortable Summary: vitals remained stable. Gave meds per order. Pain managed with dilaudid q4. Pt offered chair but refused at this time. Nephrostomy and hraris clamped for CT procedure. Unclamped before arriving [...] Activity: Goal: Mobility will improve Outcome: Progressing H MENDER * Plan of Care - Dionne Palafox [...] medications given withpartial relief. Vital signs stable. H MENDER * Plan of Care - Lana Turcios [...] q 8 hours, pain management, encourage activity H MENDER * Assessment & Plan Note - Jimenez Henao MD - 10/15/2023 9:06 AM PERCH MENDER Associated Problem(s): Left perinephric collection, 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 Likely post procedure complication. Urology following - CT urogram on 10/16 notes presence of L perinephric hematoma - Continue to trend white count, renal function and fever curve H MENDER H MENDER H MENDER * Consults, Subsequent - Vero Tolentino MD - 10/15/2023 6:38 AM PERCH MENDER Images from the original note were not [...] Physical Exam: Vitals: 10/13/23 1122 10/13/23 1558 12/09/200410/14/23309 BP: 131/75 138/86 135/88 132/79 BP Location: Right arm Right arm Patient Position: HOB 30 degrees HOB 30 degrees Pulse: 103 93 81 81 Resp: 18 Temp: 36.8 ??C (98.2 ??F) 36.8 ??C [...] was obtained. Prior to beginning the procedure, [place] Protocol was performed to confirm the patient's [...] or concerns, please page Urology through the master control operator. Vero Tolentino MD 10/14/2023 Cosigned by Fredrick Mcneil MD at 10/17/2023 5:10 PM PERCH MENDER H MENDER H MENDER H MENDER * Plan of Care - Lyn Tolliver [...] Provided comfort and safety. Nephrostomy dressing changed. H MENDER * Plan of Care - Sue Allison [...] pressure high, MD notified. Patient resting comfortably. H MENDER * Post-Procedure Note - Ana Alfaro MD - 10/14/2023 1:46 PM CST Radiology Brief Post Procedure Note Attending: Dr. Hughes Case Finishing Machine Adjuster: Dr. Alfaro Sedation/Anesthesia: Min Sedation Pre-Op/Pre-Procedure Diagnosis: Hydronephrosis Post-Op/Post-Procedure Diagnosis: Mild hydronephrosis with blood clots in the collecting system andmoderate hydroureter Procedure Performed: Right percutaneous PCN placement Procedure Findings: Successful PCN placement Complications: None Estimated Blood Loss: < 30 ml Specimens: 10 ml aspirate sent to the lab Condition: Stable Full report to follow. H MENDER * Pre-Procedure Note - Ana Alfaro MD [...] (premix) 2,000 mg, 2,000 mg, intravenous, Q24H [facility], Severo Mrelos MD, 2,000 mg at 10/14/23 0843 [Held by Provider] enoxaparin (LOVENOX) syringe 40 mg, 40 mg, subcutaneous, Daily-2099, Severo Merlos MD HYDROmorphone (DILAUDID) injection 0.2 [...] flush 0.5-20 mL, 0.5-20 mL, intra-catheter, Q8H [facility], Ana Alfaro MD, 10 mL at 10/14/23 0636 sodium chloride 0.9% flush 0.5-20 mL, 0.5-20 mL, intra-catheter, PRN, Ana Alfaro MD sodium chloride 0.9% infusion, 75 mL/hr, intravenous, Continuous, [facility]nnorthern [facility] centerAlice MD, Last Rate: 75 mL/hr at 10/14/23 09, 75 mL/hr at 10/14/23 09 tamsulosin (FLOMAX) extended release capsule 0.8 mg, [...] been discussed with the patient and/or their traveling representative. All questions answered and they agree to proceed. H MENDER H MENDER * Plan of Care - Lyn Tolliver [...] Observed Strict intake and output. Monitored hematuria. H MENDER * Consults, Subsequent - Vero Tolentino MD - 10/13/2023 5:57 PM PERCH MENDER Images from the original note were not [...] or concerns, please page Urology through the master control operator. Vero Tolentino MD 10/13/2023 Cosigned by Fredrick Mcneil MD at 10/13/2023 11:37 PM PERCH MENDER H MENDER H MENDER H MENDER * Initial Assessments - Torey Mckenna RN - 10/13/2023 2:42 PM PERCH MENDER CM Initial Assessment Interview Note Information Obtained From: Patient (10/13/231439) in the room Admission Source: from ED Impression: 73 yo male admitted for UTI. Plan Includes: to establish a safe discharge plan Primary Source of Transportation: Does the patient need discharge transport arranged?: (unknown, as DC location unknown) (10/13/231439) Health Insurance Coverage: [facility] Medicare Prescription Coverage: yes Pharmacy: [facility] [address] [place] [address] [id number] [place] [address] [address] [facility] [address] Primary Care Provider: Rl Medina DO Prior [...] Collaboration with patient, MD, direct care nurse, Cost And Sales Record Supervisor, and other members of the health care team to assure needed interventions completed. 2. Return patient to optimal level of self-care post discharge. 3. Pin Ticket Machine Operator will follow for Discharge Planning - interventions [...] with the aftercare plan. Torey Mckenna RN H MENDER * Hospital Course - [facility], Jimenez Dan MD - 10/13/2023 2:42 PM PERCH MENDER Hira Evans is a 73 y.o. male [...] ortho, his surgery as postponed to 10/23. H MENDER H MENDER H MENDER H MENDER H MENDER H MENDER H MENDER H MENDER H MENDER H MENDER H MENDER * Plan of Care - Js Cardenas [...] medicine. Pt currently NPO. Family at bedside. H MENDER * Post-Procedure Note - Ana Alfaro MD - 10/13/2023 9:46 AM CST Radiology Brief Post Procedure Note Attending: Dr. Mar Case Finishing Machine Adjuster: Dr. Alfaro Sedation/Anesthesia: Min Sedation Pre-Op/Pre-Procedure Diagnosis: Hydroureteronephrosis with an obstructing stone Post-Op/Post-Procedure Diagnosis: Same Procedure Performed: Attempted PCN placement Procedure Findings: Non-dilated calyces with contrast washing down the ureter. Complications: None Estimated Blood Loss: None Specimens: None Condition: Stable Full report to follow. H MENDER * Pre-Procedure Note - Ana Alfaro MD [...] Diagnosis Date Allergic rhinitis Arthritis OA Cancer ([facility]) (HCC) prostate and melonomia Gastric reflux GERD [...] mL/hr at 10/13/23 0647, 100 mL/hr at 10/13/23 0647 Physical exam: Physical Exam Cardiovascular: Rate and [...] been discussed with the patient and/or their traveling representative. All questions answered and they agree to proceed. H MENDER * Assessment & Plan Note - Severo Merlos MD - 10/13/2023 5:39 AM [facility] MENDER Associated Problem(s): Prostate cancer (HCC) S/p postprostatectomy H MENDER * Assessment & Plan Note - Marquise Lim MD - 10/13/2023 5:36 AM [facility] MENDER Associated Problem(s): HTN (hypertension) Hold home irbesartan Restart diltiazem xl H MENDER H MENDER H MENDER * Assessment & Plan Note - Jimenez Henao MD - 10/13/2023 5:36 AM [facility] MENDER Associated Problem(s): Hydronephrosis with urinary obstruction due [...] though OK to de-escalate to oral regimen H MENDER H MENDER H MENDER H MENDER H MENDER H MENDER H MENDER H MENDER H MENDER H MENDER H MENDER H MENDER H MENDER H MENDER H MENDER * Assessment & Plan Note - Jimenez Henao MD - 10/13/2023 5:36 AM [facility] MENDER Associated Problem(s): Lumbar radiculopathy He has been [...] every 4 hours Surgery rescheduled to 10/23/23 H MENDER H MENDER H MENDER H MENDER H MENDER H MENDER * Assessment & Plan Note - Jimenez Henao MD - 10/13/2023 5:35 AM [facility]CH MENDER Associated Problem(s): UTI (urinary tract infection) - Complicated UTI with the presence of left ureteral stone and Pyelitis - urine culture grew E-coli which is pansusceptible. - Discussion with urology and orthopedic surgery: continue Keflex 500 mg q6hr as it appears patientwill stay in-house until OR on 10/22-10/23 -Antibiotics as above. H MENDER H MENDER H MENDER H MENDER H MENDER H MENDER * Plan of Care - Silvana Man [...] new admit orders/call light,bed controls,meal times,televisions controls. H MENDER * Perioperative Nursing Note - Philip Ha RN - 10/13/2023 3:41 AM [facility] MENDER Pt is being signed out by Anesthesia. H MENDER * Op Note - Fredrick Mcneil MD [...] Consult IR for left nephrostomy tube placement H MENDER * ED Re-evaluation Note - Genaro Chavira MD - 10/12/2023 11:05 PM [facility] MENDER ED Re-evaluation TRANSITION OF CARE: Genaro Dixon [...] infected stone. By: Amol Hargrove MD Time: 12/08 2318 Comment: ATTENDING TRANSITION OF CARE I, Delvin Harrington MD, am taking signout from Camryn (Attending). I have reviewed all pertinent vital signs allergies, and history available in the chart. Summary: 73 y.o. male urology Pending: reccs from specialists Dispo: admit By: Delvin Harrington MD Kurtz, Camden Emmett, MD Resident 10/12/23 [id number] H MENDER documented in this encounter Plan of Treatment Pending Results Name Type Priority Associated Diagnoses Date /Time Erythrocyte sedimentation rate Lab STAT 10/12/2023 7:50 PM [facility] MENDER CRP (acute phase) Lab STAT 023 7:50 PM PERCH MENDER Basic metabolic panel Lab Routine 7:06 PM [facility]CH MENDER Phosphorus Lab Routine 10/29/2023 9:5 3 PM PERCH MENDER Magnesium Lab Routine 10/29/2023 9:5 3 PM PERCH MENDER Scheduled Orders Name Type Priority Associated Diagnoses [...] 3 VIEWS Pending Discharge 10/30/2023 9:49 AM [facility] MENDER EGFR Routine 10/29/2023 9:53 PM [facility] MENDER DIFFERENTIAL AUTO Routine 10/29/2023 9:5 3 PM PERCH MENDER CBC WITH AUTO DIFFERENTIAL Routine 10/29/2023 9:53 PM PER[facility] MENDER PHOSPHORUS Routine 10/29/2023 9:53 PM [facility] MENDER MAGNESIUM Routine 10/29/2023 9:53 PM [facility]CH MENDER BASIC METABOLIC PANEL Routine 10/29/2023 9:53 PM [facility] MENDER EGFR Routine 10/29/2023 4:40 AM [facility] MENDER DIFFERENTIAL AUTO Routine 10/29/2023 4:4 0 AM PERCH MENDER CBC WITH AUTO DIFFERENTIAL Routine 10/29/2023 4:40 AM PERCH MENDER TYPE AND SCREEN Timed 10/29/2023 4:40 AM [facility] MENDER PHOSPHORUS Routine 10/29/2023 4:40 AM [facility] MENDER MAGNESIUM Routine 10/29/2023 4:40 AM [facility] MENDER BASIC METABOLIC PANEL Routine 10/29/2023 4:[address] HEAD WO CONTRAST IP Routine 10/28/2023 5 :58 PM [facility] MENDER EGFR Routine 10/27/2023 11:32 PM PER[facility] MENDER DIFFERENTIAL AUTO Routine 10/27/2023 11: 32 PM [facility]CH MENDER CBC WITH AUTO DIFFERENTIAL Routine 10/27/2023 11:32 PM [facility] MENDER BASIC METABOLIC PANEL Routine 10/27/2023 11:32 PM PERCH MENDER CBC WITHOUT DIFFERENTIAL Timed 10/27/2023 4:37 AM [facility] MENDER PHOSPHORUS Routine 10/27/2023 4:37 AM [facility] MENDER MAGNESIUM Routine 10/27/2023 4:37 AM [facility] MENDER EGFR Routine 10/26/2023 8:07 PM [facility] MENDER DIFFERENTIAL AUTO Routine 10/26/2023 8:0 7 PM [facility] MENDER CBC WITH AUTO DIFFERENTIAL Routine 10/26/2023 8:07 PM PER[facility] MENDER BASIC METABOLIC PANEL Routine 10/26/2023 8:07 PM PERCH MENDER EGFR STAT 10/26/2023 5:28 PM PERCH MENDER APTT STAT 10/26/2023 5:28 PM PERCH MENDER PROTIME-INR STAT 10/26/2023 5:28 PM PERCH MENDER CBC WITHOUT DIFFERENTIAL STAT 10/26/2023 5:28 PM PERCH MENDER CREATININE STAT 10/26/2023 5:28 PM [facility]CH MENDER DIFFERENTIAL AUTO Timed 10/26/2023 2:4 3 PM [facility] MENDER CBC WITH AUTO DIFFERENTIAL Timed 10/26/2023 2:43 PM PERCH MENDER APTT STAT 10/26/2023 11:09 AM PERCH MENDER TRANSFUSE RED BLOOD CELLS Timed 10/26/2023 10:02 AM [facility] MENDER PREPARE RBC Timed 10/26/2023 4:46 AM [facility]CH MENDER TRANSFUSE RED BLOOD CELLS Timed 10/26/2023 3:55 AM [facility] MENDER PREPARE RBC Timed 10/26/2023 3:03 AM PERCH MENDER APTT STAT 10/26/2023 2:21 AM PERCH MENDER CBC WITHOUT DIFFERENTIAL Timed 10/26/2023 2:21 AM PERCH MENDER TYPE AND SCREEN Timed 10/26/2023 2:21 AM [facility] MENDER PHOSPHORUS Routine 10/26/2023 2:21 AM [facility] MENDER MAGNESIUM Routine 10/26/2023 2:21 AM [facility] MENDER POTASSIUM, WHOLE BLOOD STAT 10/25/2023 10:11 PM PER[facility] MENDER CRITICAL CARE Routine 10/25/2023 9:09 PM PERCH MENDER Cardiac arrest (HCC) EGFR Routine 10/25/2023 8:41 PM PERCH MENDER DIFFERENTIAL AUTO Routine 10/25/2023 8:4 1 PM PERCH MENDER CBC WITH AUTO DIFFERENTIAL Routine 10/25/2023 8:41 PM [facility] MENDER BASIC METABOLIC PANEL Routine 10/25/2023 8:41 PM [facility] MENDER POCT GLUCOSE DEVICE Routine 10/25/2023 7 :22 PM [facility] MENDER CRITICAL CARE Routine 10/25/2023 6:45 PM [facility] MENDER Seizures, generalized convulsive (HCC) APTT STAT 10/25/2023 4:59 PM PER[facility] MENDER POCT GLUCOSE DEVICE Routine 10/25/2023 3 :09 PM PER[facility] MENDER MRI BRAIN EPILEPSY W WO CONTRAST IP Routine 10/25/2023 1:55 PM [facility] MENDER POCT GLUCOSE DEVICE Routine 10/25/2023 1 0:57 AM [facility] MENDER DIFFERENTIAL AUTO Timed 10/25/2023 10: 14 AM PER[facility] MENDER CBC WITH AUTO DIFFERENTIAL Timed 10/25/2023 10:14 AM PERCH MENDER APTT STAT 10/25/2023 10:14 AM [facility] MENDER XR CHEST 1 VIEW ED Urgent/IP Urgent 10/25/2023 9:52 AM [facility] MENDER POCT GLUCOSE DEVICE Routine 10/25/2023 6 :58 AM [facility] MENDER POCT GLUCOSE DEVICE Routine 10/25/2023 3 :44 AM PERCH MENDER APTT STAT 10/25/2023 3:14 AM [facility] MENDER POCT GLUCOSE DEVICE Routine 10/24/2023 1 1:45 PM PER[facility] MENDER CRITICAL CARE Routine 10/24/2023 11:00 PM PERCH MENDER Cardiac arrest (HCC) CALCIUM, IONIZED Routine 10/24/2023 9:11 PM PERCH MENDER POCT GLUCOSE DEVICE Routine 10/24/2023 7 :42 PM PERCH MENDER EGFR Routine 10/24/2023 7:06 PM PERCH MENDER DIFFERENTIAL AUTO Routine 10/24/2023 7:0 6 PM [facility] MENDER CBC WITH AUTO DIFFERENTIAL Routine 10/24/2023 7:06 PM PERCH MENDER APTT Routine 10/24/2023 7:06 PM PERCH MENDER PROTIME-INR Routine 10/24/2023 7:06 PM PER[facility] MENDER PHOSPHORUS Routine 10/24/2023 7:06 PM [facility] MENDER MAGNESIUM Routine 10/24/2023 7:06 PM [facility]CH MENDER BASIC METABOLIC PANEL Routine 10/24/2023 7:06 PM PERCH MENDER POCT GLUCOSE DEVICE Routine 10/24/2023 2 :58 PM PERCH MENDER APTT STAT 10/24/2023 12:18 PM PERCH MENDER TRANSTHORACIC ECHO (TTE) COMPLETE W DOPPLER/CF W CONTRAST STAT 10/24/2023 11:43 AM PERCH MENDER POCT GLUCOSE DEVICE Routine 10/24/2023 1 1:04 AM PERCH MENDER TROPONIN I HIGH-SENSITIVITY 6-HOUR Timed 10/24/2023 9:39 AM PERCH MENDER TROPONIN I HIGH-SENSITIVITY Routine 10/24/2023 8:32 AM PERCH MENDER POCT GLUCOSE DEVICE Routine 10/24/2023 7 :31 AM PER[facility] MENDER CRITICAL CARE Routine 10/24/2023 6:48 AM PERCH MENDER Cardiac arrest (HCC) TROPONIN I HIGH-SENSITIVITY 2-HOUR Timed 10/24/2023 5:38 AM PERCH MENDER APTT STAT 10/24/2023 5:38 AM PERCH MENDER EEG Routine 10/24/2023 5:02 AM PERCH MENDER ECG 12-LEAD STAT 10/24/2023 3:44 AM PERCH MENDER TROPONIN I HIGH-SENSITIVITY SERIES (BASELINE, 2HR, 4HR, 6HR) Routine 10/24/2023 3:38 AM PERCH MENDER LACTATE Routine 10/24/2023 3:38 AM PERCH MENDER CRITICAL RESULT CALLBACK CARDIO CHEM Routine 10/24/2023 3:38 AM PERCH MENDER POCT GLUCOSE DEVICE Routine 10/24/2023 3 :25 AM PERCH MENDER HIV 1/2 ANTIBODY PLUS P24 ANTIGEN Routine 10/24/2023 12:20 AM PERCH MENDER POCT GLUCOSE DEVICE Routine 10/24/2023 1 2:20 AM PERCH MENDER APTT STAT 10/24/2023 12:20 AM PERCH MENDER PROTIME-INR STAT 10/24/2023 12:20 AM PERCH MENDER CBC WITHOUT DIFFERENTIAL STAT 10/24/2023 12:[address] CHEST PE ABDOMEN PELVIS W CONTRAST ED Urgent/IP Urgent 10/23/2023 11:[address] HEAD WO CONTRAST Critical/Life-Th reatening 10/23/2023 11:48 PM PERCH MENDER CRITICAL CARE Routine 10/23/2023 11:47 PM PERCH MENDER Cardiac arrest (HCC) DIFFERENTIAL AUTO Routine 10/23/2023 11: 03 PM PERCH MENDER CALCIUM, IONIZED STAT 10/23/2023 11:0 3 PM PERCH MENDER CBC WITH AUTO DIFFERENTIAL Routine 10/23/2023 11:03 PM PERCH MENDER MANUAL DIFFERENTIAL Routine 10/23/2023 1 1:03 PM PERCH MENDER BLOOD GAS, ARTERIAL STAT 10/23/2023 1 1:03 PM PERCH MENDER EGFR STAT 10/23/2023 11:02 PM PERCH MENDER APTT STAT 10/23/2023 11:02 PM PERCH MENDER PROTIME-INR STAT 10/23/2023 11:02 PM PERCH MENDER PHOSPHORUS STAT 10/23/2023 11:02 PM PERCH MENDER MAGNESIUM STAT 10/23/2023 11:02 PM PERCH MENDER LIPID PANEL STAT 10/23/2023 11:02 PM PERCH MENDER COMPREHENSIVE METABOLIC PANEL STAT 10/23/2023 11:02 PM PERCH MENDER POC BLOOD GAS AND CHEMISTRIES, ARTERIAL Routine 10/23/2023 10:39 PM PERCH MENDER POC BLOOD GAS AND CHEMISTRIES, ARTERIAL Routine 10/23/2023 10:07 PM PERCH MENDER EGFR STAT 10/23/2023 9:52 PM PERCH MENDER CBC WITHOUT DIFFERENTIAL STAT 10/23/2023 9:52 PM PERCH MENDER BASIC METABOLIC PANEL STAT 10/23/2023 9:52 PM PERCH MENDER POC BLOOD GAS AND CHEMISTRIES, VENOUS Routine 10/23/2023 9:50 PM PERCH MENDER FL FLUOROSCOPY < 1 HOUR IP Routine 10/23/2023 8:45 PM PERCH MENDER EGFR Routine 10/22/2023 9:39 PM PERCH MENDER DIFFERENTIAL AUTO Routine 10/22/2023 9:3 9 PM PERCH MENDER CBC WITH AUTO DIFFERENTIAL Routine 10/22/2023 9:39 PM PERCH MENDER PROTIME-INR Routine 10/22/2023 9:39 PM PERCH MENDER TYPE AND SCREEN Timed 10/22/2023 9:39 PM PERCH MENDER BASIC METABOLIC PANEL Routine 10/22/2023 9:39 PM PERCH MENDER XR CHEST 1 VIEW IP Routine 10/22/2023 6:24 AM PERCH MENDER EGFR Routine 10/21/2023 10:52 PM PERCH MENDER DIFFERENTIAL AUTO Routine 10/21/2023 10: 52 PM PERCH MENDER CBC WITH AUTO DIFFERENTIAL Routine 10/21/2023 10:52 PM PERCH MENDER BASIC METABOLIC PANEL Routine 10/21/2023 10:52 PM PERCH MENDER EGFR Routine 10/20/2023 9:38 PM PERCH MENDER DIFFERENTIAL AUTO Routine 10/20/2023 9:3 8 PM PERCH MENDER CBC WITH AUTO DIFFERENTIAL Routine 10/20/2023 9:38 PM PERCH MENDER BASIC METABOLIC PANEL Routine 10/20/2023 9:38 PM PERCH MENDER EGFR Routine 10/19/2023 9:11 PM PERCH MENDER DIFFERENTIAL AUTO Routine 10/19/2023 9:1 1 PM PERCH MENDER CBC WITH AUTO DIFFERENTIAL Routine 10/19/2023 9:11 PM PERCH MENDER BASIC METABOLIC PANEL Routine 10/19/2023 9:11 PM PERCH MENDER EGFR Routine 10/18/2023 9:29 PM PERCH MENDER DIFFERENTIAL AUTO Routine 10/18/2023 9:2 9 PM PERCH MENDER CBC WITH AUTO DIFFERENTIAL Routine 10/18/2023 9:29 PM PERCH MENDER BASIC METABOLIC PANEL Routine 10/18/2023 9:29 PM PERCH MENDER DEXA AXIAL SKELETON BONE DENSITY 1 OR MORE SITES IP Routine 10/18/2023 12:45 PM PERCH MENDER FL FLUOROSCOPY < 1 HOUR IP Routine 10/18/2023 11:27 AM PERCH MENDER EGFR Routine 10/17/2023 10:52 PM PERCH MENDER DIFFERENTIAL AUTO Routine 10/17/2023 10: 52 PM PERCH MENDER CBC WITH AUTO DIFFERENTIAL Routine 10/17/2023 10:52 PM PERCH MENDER APTT Routine 10/17/2023 10:52 PM PERCH MENDER PROTIME-INR Routine 10/17/2023 10:52 PM PERCH MENDER BASIC METABOLIC PANEL Routine 10/17/2023 10:[address] UROGRAM IP Routine 10/16/2023 12:36 PM PERCH MENDER PERCUTANEOUS NEPHROSTOMY PCN LEFT IP Routine 10/14/2023 1:38 PM PERCH MENDER URINALYSIS AND REFLEX TO MICROSCOPIC AND CULTURE Routine 10/14/2023 1:35 PM PERCH MENDER URINALYSIS, MICROSCOPIC ONLY Routine 10/14/2023 1:35 PM PERCH MENDER URINE CULTURE Routine 10/14/2023 1:35 PM PERCH MENDER US KIDNEY COMPLETE Timed 10/14/2023 7: 15 AM PERCH MENDER EGFR Routine 10/14/2023 6:30 AM PERCH MENDER DIFFERENTIAL AUTO Routine 10/14/2023 6:3 0 AM PERCH MENDER CBC WITH AUTO DIFFERENTIAL Routine 10/14/2023 6:30 AM PERCH MENDER COMPREHENSIVE METABOLIC PANEL Routine 10/14/2023 6:30 AM PERCH MENDER BLOOD CULTURE Routine 10/13/2023 10:59 PM PERCH MENDER BLOOD CULTURE Routine 10/13/2023 11:01 AM PERCH MENDER FL FLUOROSCOPY < 1 HOUR ED Urgent/IP Urgent 10/13/2023 9:48 AM PERCH MENDER EGFR Routine 10/13/2023 6:50 AM PERCH MENDER DIFFERENTIAL AUTO Routine 10/13/2023 6:5 0 AM PERCH MENDER CBC WITH AUTO DIFFERENTIAL Routine 10/13/2023 6:50 AM PERCH MENDER COMPREHENSIVE METABOLIC PANEL Routine 10/13/2023 6:50 AM PERCH MENDER FL FLUOROSCOPY < 1 HOUR IP Routine 10/13/2023 3:00 AM PERCH MENDER PYELOGRAM - RETROGRADE 10/13/2023 2:21 AM PERCH MENDER Hydronephrosis with urinary obstruction due to renal calculus CYSTOSCOPY 10/13/2023 2:21 AM PERCH MENDER Hydronephrosis with urinary obstruction due to renal calculus MRI SPINE TOTAL COMPLETE W WO CONTRAST ED 10/12/2023 11:44 PM PERCH MENDER BLOOD CULTURE STAT 10/12/2023 9:[address] CHEST ABDOMEN PELVIS W CONTRAST ED 10/12/2023 9:00 PM PERCH MENDER LACTATE STAT 10/12/2023 7:50 PM PERCH MENDER EGFR STAT 10/12/2023 7:50 PM PERCH MENDER DIFFERENTIAL AUTO STAT 10/12/2023 7:5 0 PM PERCH MENDER URINALYSIS AND REFLEX TO MICROSCOPIC AND CULTURE STAT 10/12/2023 7:50 PM PERCH MENDER CBC WITH AUTO DIFFERENTIAL STAT 10/12/2023 7:50 PM PERCH MENDER BLOOD CULTURE STAT 10/12/2023 7:50 PM PERCH MENDER URINALYSIS, MICROSCOPIC ONLY STAT 10/12/2023 7:50 PM PERCH MENDER ERYTHROCYTE SEDIMENTATION RATE STAT 10/12/2023 7:50 PM PERCH MENDER URINE CULTURE STAT 10/12/2023 7:50 PM PERCH MENDER CRP (ACUTE PHASE) STAT 10/12/2023 7:5 0 PM PERCH MENDER BASIC METABOLIC PANEL STAT 10/12/2023 7:50 PM PERCH MENDER documented in this encounter Results * XR Spine Lumbar 2 or 3 Views (10/30/2023 9:49 AM PERCH MENDER) Anatomical Region Laterality Modality Spine N/A Computed Radiogr aphy 10/30/2023 10:1 9 AM PERCH MENDER Impressions 10/30/2023 10:25 AM PERCH MENDER 1. ??Posterior instrumented spinal fusion from L4 to L5 with combined interbody fusion. Dictated by: Tamia Rojas MD The radiology attending physician has personally reviewed this study, and had reviewed and/or edited this written report and agrees with it. Electronically signed by: Dmitry Navarro MD Narrative 10/30/2023 10:25 AM PERCH MENDER EXAMINATION: XR SPINE LUMBAR 2 OR 3 [...] signed by: Dmitry Navarro MD Rafael Rodriguez NP IMG XR PROCEDURES Final Resu lt * eGFR (10/29/2023 9:53 PM PERCH MENDER) eGFR 85 >=60 mL/min/1. 73 m2 [facility] Comment: Interpretive Data Reference Interval Normal [...] last reviewed 2021. Blood 10/29/2023 9:53 PM PERCH MENDER 10/29/2023 10:11 PM PERCH MENDER us Tia Nolan NP LAB BLOOD ORDERABLES F inal Result Performing Organization Address City/[facility]/ZIP Co de Phone Number [facility] [place] [address] * Magnesium (10/29/2023 9:53 PM PERCH MENDER) Magnesium 1.7 1.4 - 2.5 mg/dL [facility] Blood 10/29/2023 9:53 PM PERCH MENDER 10/29/2023 10:11 PM PERCH MENDER us Hayder Vu Jr., MD LAB BLOOD ORDERABLE S Final Result Performing Organization Address City/[facility]/ZIP Co de Phone Number [facility] [place] [address] * Phosphorus (10/29/2023 9:53 PM PERCH MENDER) Phosphorus, pl 2.6 2.3 - 4.5 mg/dL [facility] Blood 10/29/2023 9:53 PM PERCH MENDER 10/29/2023 10:11 PM PERCH MENDER us Hayder Vu Jr., MD LAB BLOOD ORDERABLE S Final Result [facility] [place] [address] * Differential, auto (10/29/2023 9:53 PM PERCH MENDER) Neutrophil abs 4.9 1.5 - 6.5 K/cumm [facility] Imm gran abs 0.1 0.0 - 0.1 K/cumm [facility] Lymphocyte abs 1.3 0.8 - 3.3 K/cumm [facility] Monocyte abs 0.7 0.2 - 0.8 K/cumm [facility] Eosinophil abs 0.2 0.0 - 0.5 K/cumm [facility] Basophil abs 0.0 0.0 - 0.1 K/cumm [facility] Neutrophil pct 68.7 % [facility] Comment: Interpretive Data Percent cell count reference ranges are not reported, since discordance with absolute values may lead to misinterpretation of CBC data. Current Interpretive Data was last revised on 2018. Imm gran pct 1.0 % [facility] Comment: Interpretive Data Percent cell count reference ranges are not reported, since discordance with absolute values may lead to misinterpretation of CBC data. Current Interpretive Data was last revised on 2018. Lymphocyte pct 18.3 % [facility] Comment: Interpretive Data Percent cell count reference ranges are not reported, since discordance with absolute values may lead to misinterpretation of CBC data. Current Interpretive Data was last revised on 2018. Monocyte pct 9.7 % [facility] Comment: Interpretive Data Percent cell count reference ranges are not reported, since discordance with absolute values may lead to misinterpretation of CBC data. Current Interpretive Data was last revised on 2018. Eosinophil pct 2.2 % [facility] Comment: Interpretive Data Percent cell count reference ranges are not reported, since discordance with absolute values may lead to misinterpretation of CBC data. Current Interpretive Data was last revised on 2018. Basophil pct 0.1 % [facility] Comment: Interpretive Data Percent cell count reference ranges are not reported, since discordance with absolute values may lead to misinterpretation of CBC data. Current Interpretive Data was last revised on 2018. Blood 10/29/2023 9:53 PM PERCH MENDER 10/29/2023 10:11 PM PERCH MENDER Tia Nolan HOST LAB BLOOD ORDERABLES F inal Result [facility] [place] [address] * (ABNORMAL) CBC with auto differential (10/29/2023 9:53 PM PERCH MENDER) WBC 7.2 3.8 - 9.9 K/cumm [facility] Hgb 9.4(L) 13.0 - 17.5 g/dL [facility] Hct 28.0(L) 38.9 - 50.3 % [facility] Plt 313 150 - 400 K/cumm [facility] MPV 10.7 9.1 - 12.3 fL [facility] RBC 3.00(L) 4.30 - 5.80 M/cumm [facility] MCV 93.3 81.3 - 96.4 fL [facility] MCH 31.3 27.1 - 33.3 pg [facility] MCHC 33.6 32.3 - 35.7 g/dL [facility] RDW CV 13.7 11.1 - 14.9 % [facility] RDW SD 46.5 35.7 - 48.1 fL [facility] NRBC abs 0.00 0.00 - 0.01 K/cumm [facility] Blood 10/29/2023 9:53 PM PERCH MENDER 10/29/2023 10:11 PM PERCH MENDER Tia Nolan HOST LAB BLOOD ORDERABLES F inal Result Performing Organization Address City/[facility]/ZIP Co de Phone Number [facility] [place] [address] * (ABNORMAL) Basic metabolic panel (10/29/2023 9:53 PM PERCH MENDER) Pathologist [facility] Sodium 137 135 - 145 mmol/L [facility] Potassium, pl 3.7 3.3 - 4.9 mmol/L [facility] Chloride 103 97 - 110 mmol/L [facility] CO2 24 22 - 32 mmol/L [facility] Anion gap 10 2 - 15 mmol/L [facility] BUN 10 6 - 25 mg/dL [facility] Creatinine 0.95 0.80 - 1.30 mg/dL [facility] Glucose 108 70 - 199 mg/dL [facility] 2022. Calcium 8.1(L) 8.5 - 10.3 mg/dL [facility] Blood 10/29/2023 9:53 PM PERCH MENDER 10/29/2023 10:11 PM PERCH MENDER us Tia Nolan HOST LAB BLOOD ORDERABLES F inal Result [facility] [place] [address] * eGFR (10/29/2023 4:40 AM PERCH MENDER) [facility] eGFR >90 >=60 mL/min/1. 73 m2 [facility] Comment: Interpretive Data Reference Interval [...] last reviewed 2021. Blood 10/29/2023 4:40 AM PERCH MENDER 10/29/2023 5:04 AM PERCH MENDER us Tia Nolan HOST LAB BLOOD ORDERABLES F inal Result [facility] [place] [address] * Differential, auto (10/29/2023 4:40 AM PERCH MENDER) Neutrophil abs 3.6 1.5 - 6.5 K/cumm [facility] Imm gran abs 0.1 0.0 - 0.1 K/cumm [facility] Lymphocyte abs 1.0 0.8 - 3.3 K/cumm [facility] Monocyte abs 0.6 0.2 - 0.8 K/cumm [facility] Eosinophil abs 0.2 0.0 - 0.5 K/cumm [facility] Basophil abs 0.0 0.0 - 0.1 K/cumm [facility] Neutrophil pct 66.1 % [facility] Comment: Interpretive Data Percent cell count reference ranges are not reported, since discordance with absolute values may lead to misinterpretation of CBC data. Current Interpretive Data was last revised on 2018. Imm gran pct 1.1 % [facility] Comment: Interpretive Data Percent cell count reference ranges are not reported, since discordance with absolute values may lead to misinterpretation of CBC data. Current Interpretive Data was last revised on 2018. Lymphocyte pct 18.9 % [facility] Comment: Interpretive Data Percent cell count reference ranges are not reported, since discordance with absolute values may lead to misinterpretation of CBC data. Current Interpretive Data was last revised on 2018. Monocyte pct 10.4 % [facility] Comment: Interpretive Data Percent cell count reference ranges are not reported, since discordance with absolute values may lead to misinterpretation of CBC data. Current Interpretive Data was last revised on 2018. Eosinophil pct 3.1 % [facility] Comment: Interpretive Data Percent cell count reference ranges are not reported, since discordance with absolute values may lead to misinterpretation of CBC data. Current Interpretive Data was last revised on 2018. Basophil pct 0.4 % [facility] Comment: Interpretive Data Percent cell count reference ranges are not reported, since discordance with absolute values may lead to misinterpretation of CBC data. Current Interpretive Data was last revised on 2018. Blood 10/29/2023 4:40 AM PERCH MENDER 10/29/2023 5:05 AM PERCH MENDER us Tia Nolan NP LAB BLOOD ORDERABLES F inal Result [facility] Department of Laboratories [place], [place] [id number] * Type and screen (10/29/2023 4:40 AM PER[facility] MENDER) Jigna, indirect Negative ABO Rh O Positive [facility] Blood 10/29/2023 4:40 AM [facility] MENDER 10/29/2023 5:09 AM [facility]ER Narrative [facility] - 10/29/2023 6:37 AM [facility] MENDER Has the patient had Daratumumab or Isatuximab in the past 6 months?->Unknown Tia Nolan HOST LAB BLOOD BANK TEST OR DERABLES Final Result Performing Organization Address [facility] Co de Phone Number [facility] Department of [place] [address] * (ABNORMAL) CBC with auto differential (10/29/2023 4:40 AM PERCH MENDER) [facility] WBC 5.4 3.8 - 9.9 K/cumm [facility] Hgb 9.5(L) 13.0 - 17.5 g/dL [facility] Hct 27.9(L) 38.9 - 50.3 % [facility] Plt 295 150 - 400 K/cumm [facility] MPV 10.8 9.1 - 12.3 fL [facility] RBC 3.03(L) 4.30 - 5.80 M/cumm [facility] MCV 92.1 81.3 - 96.4 fL [facility] MCH 31.4 27.1 - 33.3 pg [facility] MCHC 34.1 32.3 - 35.7 g/dL [facility] RDW CV 13.6 11.1 - 14.9 % [facility] RDW SD 45.1 35.7 - 48.1 fL [facility] NRBC abs 0.00 0.00 - 0.01 K/cumm [facility] Blood 10/29/2023 4:40 AM PERCH MENDER 10/29/2023 5:05 AM PERCH MENDER Tia Nolan HOST LAB BLOOD ORDERABLES F inal Result Performing Organization Address [facility]/ZIP Co de Phone Number [facility] [place] [address] * (ABNORMAL) Basic metabolic panel (10/29/2023 4:40 AM PERCH MENDER) Sodium 139 135 - 145 mmol/L [facility] Potassium, pl 3.5 3.3 - 4.9 mmol/L [facility] Chloride 104 97 - 110 mmol/L [facility] CO2 23 22 - 32 mmol/L [facility] Anion gap 12 2 - 15 mmol/L [facility] BUN 11 6 - 25 mg/dL [facility] Creatinine 0.88 0.80 - 1.30 mg/dL [facility] Glucose 112 70 - 199 mg/dL [facility] 2022. Calcium 8.2(L) 8.5 - 10.3 mg/dL [facility] Blood 10/29/2023 4:40 AM PERCH MENDER 10/29/2023 5:04 AM PERCH MENDER Tia Nolan NP LAB BLOOD ORDERABLES F inal Result Performing Organization Address City/[facility]/ZIP Co de Phone Number [facility] [place] [address] * Phosphorus (10/29/2023 4:40 AM PERCH MENDER) Pathologist [facility] Phosphorus, pl 2.7 2.3 - 4.5 mg/dL [facility] Blood 10/29/2023 4:40 AM PERCH MENDER 10/29/2023 5:05 AM PERCH MENDER Tia Nolan NP LAB BLOOD ORDERABLES F inal Result Performing Organization Address City/[facility]/ZIP Co de Phone Number [facility] [place] [address] * Magnesium (10/29/2023 4:40 AM PERCH MENDER) Magnesium 1.8 1.4 - 2.5 mg/dL [facility] Blood 10/29/2023 4:40 AM PERCH MENDER 10/29/2023 5:05 AM PERCH MENDER us Tia Nolan HOST LAB BLOOD ORDERABLES F inal Result [facility] [place] [address] * CT Head WO Contrast (10/28/2023 5:58 PM PERCH MENDER) Anatomical Region Laterality Modality Head and Neck N/A Computed Tomogra phy 10/28/2023 8:46 PM PERCH MENDER Impressions 10/29/2023 10:19 AM PERCH MENDER 1. ??Thin bilateral subdural collections along the [...] Landen Perez M.D. Narrative 10/29/2023 10:19 AM PERCH MENDER EXAMINATION: CT head without contrast HISTORY: Subdural [...] Final Result * eGFR (10/27/2023 11:32 PM PERCH MENDER) eGFR >90 >=60 mL/min/1. 73 m2 [facility] [...] reviewed 2021. Blood 10/27/2023 11:3 2 PM PERCH MENDER 10/28/2023 12:27 AM PERCH MENDER us Tia Nolan HOST LAB BLOOD ORDERABLES F inal Result [facility] [place] [address] * Differential, auto (10/27/2023 11:32 PM PERCH MENDER) Neutrophil abs 3.9 1.5 - 6.5 K/cumm [facility] Imm gran abs 0.1 0.0 - 0.1 K/cumm [facility] Lymphocyte abs 1.2 0.8 - 3.3 K/cumm [facility] Monocyte abs 0.6 0.2 - 0.8 K/cumm [facility] Eosinophil abs 0.2 0.0 - 0.5 K/cumm [facility] Basophil abs 0.0 0.0 - 0.1 K/cumm [facility] Neutrophil pct 65.9 % [facility] Comment: Interpretive Data Percent cell count reference ranges are not reported, since discordance with absolute values may lead to misinterpretation of CBC data. Current Interpretive Data was last revised on 2018. Imm gran pct 0.8 % [facility] Comment: Interpretive Data Percent cell count reference ranges are not reported, since discordance with absolute values may lead to misinterpretation of CBC data. Current Interpretive Data was last revised on 2018. Lymphocyte pct 20.3 % [facility] Comment: Interpretive Data Percent cell count reference ranges are not reported, since discordance with absolute values may lead to misinterpretation of CBC data. Current Interpretive Data was last revised on 2018. Monocyte pct 9.6 % [facility] Comment: Interpretive Data Percent cell count reference ranges are not reported, since discordance with absolute values may lead to misinterpretation of CBC data. Current Interpretive Data was last revised on 2018. Eosinophil pct 3.2 % [facility] Comment: Interpretive Data Percent cell count reference ranges are not reported, since discordance with absolute values may lead to misinterpretation of CBC data. Current Interpretive Data was last revised on 2018. Basophil pct 0.2 % [facility] Comment: Interpretive Data Percent cell count reference ranges are not reported, since discordance with absolute values may lead to misinterpretation of CBC data. Current Interpretive Data was last revised on 2018. Blood 10/27/2023 11:3 2 PM PERCH MENDER 10/28/2023 12:26 AM PERCH MENDER Tia Nolan NP LAB BLOOD ORDERABLES F inal Result [facility] [place] [address] * (ABNORMAL) CBC with auto differential (10/27/2023 11:32 PM PERCH MENDER) WBC 6.0 3.8 - 9.9 K/cumm [facility] Hgb 8.6(L) 13.0 - 17.5 g/dL [facility] Hct 25.3(L) 38.9 - 50.3 % [facility] Plt 295 150 - 400 K/cumm [facility] MPV 11.2 9.1 - 12.3 fL [facility] RBC 2.78(L) 4.30 - 5.80 M/cumm [facility] MCV 91.0 81.3 - 96.4 fL [facility] MCH 30.9 27.1 - 33.3 pg [facility] MCHC 34.0 32.3 - 35.7 g/dL [facility] RDW CV 13.2 11.1 - 14.9 % [facility] RDW SD 44.2 35.7 - 48.1 fL [facility] NRBC abs 0.00 0.00 - 0.01 K/cumm [facility] Blood 10/27/2023 11:3 2 PM PERCH MENDER 10/28/2023 12:26 AM PERCH MENDER Tia Nolan HOST LAB BLOOD ORDERABLES F inal Result [facility] [place] [address] * (ABNORMAL) Basic metabolic panel (10/27/2023 11:32 PM PERCH MENDER) Sodium 135 135 - 145 mmol/L [facility] Potassium, pl 3.7 3.3 - 4.9 mmol/L [facility] Chloride 103 97 - 110 mmol/L [facility] CO2 26 22 - 32 mmol/L [facility] Anion gap 6 2 - 15 mmol/L [facility] BUN 11 6 - 25 mg/dL [facility] Creatinine 0.88 0.80 - 1.30 mg/dL [facility] Glucose 108 70 - 199 mg/dL [facility] 2022. Calcium 8.0(L) 8.5 - 10.3 mg/dL [facility] Blood 10/27/2023 11:3 2 PM PERCH MENDER 10/28/2023 12:27 AM PERCH MENDER Tia Nolan HOST LAB BLOOD ORDERABLES F inal Result [facility] [place] [address] * Phosphorus (10/27/2023 4:37 AM PERCH MENDER) Pathologist [facility] Phosphorus, pl 2.5 2.3 - 4.5 mg/dL [facility] Blood 10/27/2023 4:37 AM PERCH MENDER 10/27/2023 4:59 AM PERCH MENDER Tia Nolan HOST LAB BLOOD ORDERABLES F inal Result Performing Organization Address City/[facility]/ZIP Co de Phone Number [facility] [place] [address] * Magnesium (10/27/2023 4:37 AM PERCH MENDER) Pathologist [facility] Magnesium 1.9 1.4 - 2.5 mg/dL [facility] Blood 10/27/2023 4:37 AM PERCH MENDER 10/27/2023 4:59 AM PERCH MENDER Tia Nolan HOST LAB BLOOD ORDERABLES F inal Result Performing Organization Address City/[facility] Co de Phone Number [facility] [place] [address] * (ABNORMAL) CBC without differential (10/27/2023 4:37 AM PERCH MENDER) Pathologist [facility] WBC 7.1 3.8 - 9.9 K/cumm [facility] Hgb 9.1(L) 13.0 - 17.5 g/dL [facility] Hct 26.1(L) 38.9 - 50.3 % [facility] Plt 291 150 - 400 K/cumm [facility] MPV 11.0 9.1 - 12.3 fL [facility] RBC 2.93(L) 4.30 - 5.80 M/cumm [facility] MCV 89.1 81.3 - 96.4 fL [facility] MCH 31.1 27.1 - 33.3 pg [facility] MCHC 34.9 32.3 - 35.7 g/dL [facility] RDW CV 13.4 11.1 - 14.9 % [facility] RDW SD 43.7 35.7 - 48.1 fL [facility] NRBC abs 0.00 0.00 - 0.01 K/cumm [facility] Blood 10/27/2023 4:37 AM PERCH MENDER 10/27/2023 5:07 AM PERCH MENDER Narrative [facility] - 10/27/2023 5:17 AM PERCH MENDER While on heparin infusion Tia Nolan NP LAB BLOOD ORDERABLES F inal Result Performing Organization Address City/[facility] Co de Phone Number [facility] [place] [address] * Transfuse RBC (10/26/2023 10:32 PM PERCH MENDER) Blood us Hayder Vu Jr., MD BLOOD TRANSFUSION O RDERABLES Final Result [facility] [place] [address] * Transfuse RBC: 1 Units (10/26/2023 10:32 PM PERCH MENDER) Blood Hayder Vu Jr., MD BLOOD TRANSFUSION O RDERABLES Final Result * eGFR (10/26/2023 8:07 PM PERCH MENDER) eGFR >90 >=60 mL/min/1. 73 m2 [facility] [...] last reviewed 2021. Blood 10/26/2023 8:07 PM PERCH MENDER 10/26/2023 9:01 PM PERCH MENDER us Tia Nolan HOST LAB BLOOD ORDERABLES F inal Result [facility] [place] [address] * (ABNORMAL) Differential, auto (10/26/2023 8:07 PM PERCH MENDER) Neutrophil abs 6.7(H) 1.5 - 6.5 K/cumm [facility] Imm gran abs 0.1 0.0 - 0.1 K/cumm [facility] Lymphocyte abs 1.1 0.8 - 3.3 K/cumm [facility] Monocyte abs 0.7 0.2 - 0.8 K/cumm [facility] Eosinophil abs 0.1 0.0 - 0.5 K/cumm [facility] Basophil abs 0.0 0.0 - 0.1 K/cumm [facility] Neutrophil pct 77.6 % [facility] Comment: Interpretive Data Percent cell count reference ranges are not reported, since discordance with absolute values may lead to misinterpretation of CBC data. Current Interpretive Data was last revised on 2018. Imm gran pct 0.6 % [facility] Comment: Interpretive Data Percent cell count reference ranges are not reported, since discordance with absolute values may lead to misinterpretation of CBC data. Current Interpretive Data was last revised on 2018. Lymphocyte pct 12.5 % [facility] Comment: Interpretive Data Percent cell count reference ranges are not reported, since discordance with absolute values may lead to misinterpretation of CBC data. Current Interpretive Data was last revised on 2018. Monocyte pct 7.8 % [facility] Comment: Interpretive Data Percent cell count reference ranges are not reported, since discordance with absolute values may lead to misinterpretation of CBC data. Current Interpretive Data was last revised on 2018. Eosinophil pct 1.0 % [facility] Comment: Interpretive Data Percent cell count reference ranges are not reported, since discordance with absolute values may lead to misinterpretation of CBC data. Current Interpretive Data was last revised on 2018. Basophil pct 0.5 % [facility] Comment: Interpretive Data Percent cell count reference ranges are not reported, since discordance with absolute values may lead to misinterpretation of CBC data. Current Interpretive Data was last revised on 2018. Blood 10/26/2023 8:07 PM PERCH MENDER 10/26/2023 9:00 PM PERCH MENDER us Tia Nolan NP LAB BLOOD ORDERABLES F inal Result [facility] [place] [address] * (ABNORMAL) CBC with auto differential (10/26/2023 8:07 PM PERCH MENDER) [facility] WBC 8.6 3.8 - 9.9 K/cumm [facility] Hgb 9.5(L) 13.0 - 17.5 g/dL [facility] Hct 27.6(L) 38.9 - 50.3 % [facility] Plt 313 150 - 400 K/cumm [facility] MPV 11.2 9.1 - 12.3 fL [facility] RBC 3.08(L) 4.30 - 5.80 M/cumm [facility] MCV 89.6 81.3 - 96.4 fL [facility] MCH 30.8 27.1 - 33.3 pg [facility] MCHC 34.4 32.3 - 35.7 g/dL [facility] RDW CV 13.3 11.1 - 14.9 % [facility] RDW SD 43.5 35.7 - 48.1 fL [facility] NRBC abs 0.00 0.00 - 0.01 K/cumm [facility] Blood 10/26/2023 8:07 PM PERCH MENDER 10/26/2023 9:00 PM PERCH MENDER us Tia Nolan HOST LAB BLOOD ORDERABLES F inal Result [facility] [place] [address] * (ABNORMAL) Basic metabolic panel (10/26/2023 8:07 PM PERCH MENDER) [facility] Sodium 137 135 - 145 mmol/L [facility] Potassium, pl 3.5 3.3 - 4.9 mmol/L [facility] Chloride 104 97 - 110 mmol/L [facility] CO2 26 22 - 32 mmol/L [facility] Anion gap 7 2 - 15 mmol/L [facility] BUN 11 6 - 25 mg/dL [facility] Creatinine 0.86 0.80 - 1.30 mg/dL [facility] Glucose 132 70 - 199 mg/dL [facility] 2022. Calcium 8.2(L) 8.5 - 10.3 mg/dL [facility] Blood 10/26/2023 8:07 PM PERCH MENDER 10/26/2023 9:01 PM PERCH MENDER us Tia Nolan HOST LAB BLOOD ORDERABLES F inal Result [facility] [place] [address] * eGFR (10/26/2023 5:28 PM PERCH MENDER) eGFR 90 >=60 mL/min/1. 73 m2 [facility] Comment: Interpretive Data Reference Interval [...] last reviewed 2021. Blood 10/26/2023 5:28 PM PERCH MENDER 10/26/2023 6:00 PM PERCH MENDER Kasey Rutledge LAB BLOOD ORDERABLES Final Resu lt Performing Organization Address City/[facility]/ZIP Co de Phone Number [facility] [place] [address] * Creatinine (10/26/2023 5:28 PM PERCH MENDER) Creatinine 0.91 0.80 - 1.30 mg/dL [facility] Blood 10/26/2023 5:28 PM PERCH MENDER 10/26/2023 6:00 PM PERCH MENDER Narrative [facility] - 10/26/2023 6:31 PM PERCH MENDER Baseline prior to enoxaparin initiation. Kasey Rutledge LAB BLOOD ORDERABLES Final Resu lt Performing Organization Address City/[facility]/ZIP Co de Phone Number [facility] [place] [address] * (ABNORMAL) aPTT (10/26/2023 5:28 PM PERCH MENDER) aPTT 64(H) 28 - 38 sec [facility] Comment: Interpretive Data Heparin therapeutic range: 66.0 - 100.0 seconds. Range based on correlation with therapeutic heparin activity range of 0.3 - 0.7 Units/mL. Current interpretive data was last revised on 2023. Blood 10/26/2023 5:28 PM PERCH MENDER 10/26/2023 6:09 PM PERCH MENDER Narrative [facility] - 10/26/2023 6:18 PM PERCH MENDER Baseline prior to enoxaparin initiation. Kasey Rutledge NP LAB BLOOD ORDERABLES Final Resu lt [facility] [place] [address] * (ABNORMAL) CBC without differential (10/26/2023 5:28 PM PERCH MENDER) [facility] WBC 9.1 3.8 - 9.9 K/cumm [facility] Hgb 9.6(L) 13.0 - 17.5 g/dL [facility] Hct 28.3(L) 38.9 - 50.3 % [facility] Plt 321 150 - 400 K/cumm [facility] MPV 11.4 9.1 - 12.3 fL [facility] RBC 3.16(L) 4.30 - 5.80 M/cumm [facility] MCV 89.6 81.3 - 96.4 fL [facility] MCH 30.4 27.1 - 33.3 pg [facility] MCHC 33.9 32.3 - 35.7 g/dL [facility] RDW CV 13.2 11.1 - 14.9 % [facility] RDW SD 43.6 35.7 - 48.1 fL [facility] NRBC abs 0.00 0.00 - 0.01 K/cumm [facility] Blood 10/26/2023 5:28 PM PERCH MENDER 10/26/2023 6:01 PM PERCH MENDER Narrative [facility] - 10/26/2023 6:09 PM PERCH MENDER Baseline prior to enoxaparin initiation. Kasey Rutledge NP LAB BLOOD ORDERABLES Final Resu lt [facility] [place] [address] * Protime-INR (10/26/2023 5:28 PM PERCH MENDER) PT 13.2 10.3 - 13.7 sec [facility] INR 1.16 0.90 - 1.20 [facility] Comment: Interpretive data Oral anticoagulant therapeutic ranges: Venous thromboembolism prophylaxis or treatment: 2.0-3.0 CARDIOLOGY Standard range: 2.0-3.0 High-intensity range: 2.5-3.5 Refer to indication-specific guidelines for appropriate target ranges for prosthetic heart valve replacement. Current interpretive data was last revised on 2019. Blood 10/26/2023 5:28 PM PERCH MENDER 10/26/2023 6:09 PM PERCH MENDER Narrative [facility] - 10/26/2023 6:18 PM PERCH MENDER Baseline prior to enoxaparin initiation. us Kasey Rutledge NP LAB BLOOD ORDERABLES Final Resu lt [facility] [place] [address] * (ABNORMAL) Differential, auto (10/26/2023 2:43 PM PERCH MENDER) Pathologist [facility] Neutrophil abs 8.1(H) 1.5 - 6.5 K/cumm [facility] Imm gran abs 0.1 0.0 - 0.1 K/cumm [facility] Lymphocyte abs 0.9 0.8 - 3.3 K/cumm [facility] Monocyte abs 0.7 0.2 - 0.8 K/cumm [facility] Eosinophil abs 0.2 0.0 - 0.5 K/cumm [facility] Basophil abs 0.0 0.0 - 0.1 K/cumm [facility] Neutrophil pct 81.9 % [facility] Comment: Interpretive Data Percent cell count reference ranges are not reported, since discordance with absolute values may lead to misinterpretation of CBC data. Current Interpretive Data was last revised on 2018. Imm gran pct 0.6 % [facility] Comment: Interpretive Data Percent cell count reference ranges are not reported, since discordance with absolute values may lead to misinterpretation of CBC data. Current Interpretive Data was last revised on 2018. Lymphocyte pct 9.0 % [facility] Comment: Interpretive Data Percent cell count reference ranges are not reported, since discordance with absolute values may lead to misinterpretation of CBC data. Current Interpretive Data was last revised on 2018. Monocyte pct 6.6 % [facility] Comment: Interpretive Data Percent cell count reference ranges are not reported, since discordance with absolute values may lead to misinterpretation of CBC data. Current Interpretive Data was last revised on 2018. Eosinophil pct 1.5 % [facility] Comment: Interpretive Data Percent cell count reference ranges are not reported, since discordance with absolute values may lead to misinterpretation of CBC data. Current Interpretive Data was last revised on 2018. Basophil pct 0.4 % [facility] Comment: Interpretive Data Percent cell count reference ranges are not reported, since discordance with absolute values may lead to misinterpretation of CBC data. Current Interpretive Data was last revised on 2018. Blood 10/26/2023 2:43 PM PERCH MENDER 10/26/2023 2:56 PM PERCH MENDER us Kasey Rutledge HOST LAB BLOOD ORDERABLES Final Resu lt [facility] [place] [address] * (ABNORMAL) CBC with auto differential (10/26/2023 2:43 PM PERCH MENDER) WBC 9.9 3.8 - 9.9 K/cumm [facility] Hgb 9.3(L) 13.0 - 17.5 g/dL [facility] Hct 27.2(L) 38.9 - 50.3 % [facility] Plt 310 150 - 400 K/cumm [facility] MPV 11.0 9.1 - 12.3 fL [facility] RBC 3.01(L) 4.30 - 5.80 M/cumm [facility] MCV 90.4 81.3 - 96.4 fL [facility] MCH 30.9 27.1 - 33.3 pg [facility] MCHC 34.2 32.3 - 35.7 g/dL [facility] RDW CV 13.0 11.1 - 14.9 % [facility] RDW SD 43.3 35.7 - 48.1 fL [facility] NRBC abs 0.00 0.00 - 0.01 K/cumm [facility] Blood 10/26/2023 2:43 PM PERCH MENDER 10/26/2023 2:56 PM PERCH MENDER Narrative [facility] - 10/26/2023 3:05 PM PERCH MENDER Please draw one hour after second unit of PRBC's Kasey Rutledge NP LAB BLOOD ORDERABLES Final Resu lt Performing Organization Address [facility]/ZIP Co de Phone Number [facility] [place] [address] * Transfuse RBC (10/26/2023 1:41 PM PERCH MENDER) Blood Hayder Vu Jr., MD BLOOD TRANSFUSION O RDERABLES Final Result Performing Organization Address [facility]/ZIP Co de Phone Number [facility] [place] [address] * Transfuse RBC: 1 Units (10/26/2023 1:41 PM PERCH MENDER) Blood Hayder Vu Jr., MD BLOOD TRANSFUSION O RDERABLES Final Result * (ABNORMAL) aPTT (10/26/2023 11:09 AM PERCH MENDER) aPTT 74(H) 28 - 38 sec [facility] Comment: Interpretive Data Heparin therapeutic range: 66.0 - 100.0 seconds. Range based on correlation with therapeutic heparin activity range of 0.3 - 0.7 Units/mL. Current interpretive data was last revised on 2023. Blood 10/26/2023 11:0 9 AM PERCH MENDER 10/26/2023 11:38 AM PERCH MENDER Ca Ruano MD PhD LAB BLOOD ORDERABLES Final Result Performing Organization Address [facility] Co de Phone Number [facility] [place] [address] * Prepare RBC: 1 Units (10/26/2023 4:46 AM PERCH MENDER) Product code [id number] Unit Number [id number] * [facility] Product Blood Type OPOS [facility] Dispense Status PRESUMED TRANSFUSED [facility] Blood 10/26/2023 4:46 AM PERCH MENDER 10/26/2023 4:45 AM PERCH MENDER Narrative [facility] - 10/26/2023 4:02 PM PERCH MENDER Are special requirements needed? (All products are leukoreduced and CMV- safe)- >No Date required:-20231026 LRRBC # of [id number] Reasons:-Active bleeding, Hgb <8 g/dL} Hayder Vu Jr., MD BLOOD BANK PRODUCT ORDERABLES Final Result Performing Organization Address [facility] Co de Phone Number [facility] [place] [address] * Prepare RBC: 1 Units (10/26/2023 3:03 AM PERCH MENDER) Product code [id number] Unit Number [id number] [facility] Product Blood Type OPOS [facility] Dispense Status PRESUMED TRANSFUSED [facility] Blood 10/26/2023 3:03 AM PERCH MENDER 10/26/2023 3:03 AM PERCH MENDER Narrative [facility] - 10/26/2023 4:01 PM PERCH MENDER Are special requirements needed? (All products are leukoreduced and CMV- safe)- >No Date required:-20231026 LRRBC # of [id number] Reasons:-Hgb <7 g/dL} Hayder Vu Jr., MD BLOOD BANK PRODUCT ORDERABLES Final Result Performing Organization Address [facility] [facility] Co de Phone Number [facility] [place] [address] * (ABNORMAL) aPTT (10/26/2023 2:21 AM PERCH MENDER) aPTT 58(H) 28 - 38 sec [facility] Comment: Interpretive Data Heparin therapeutic range: 66.0 - 100.0 seconds. Range based on correlation with therapeutic heparin activity range of 0.3 - 0.7 Units/mL. Current interpretive data was last revised on 2023. Blood 10/26/2023 2:21 AM PERCH MENDER 10/26/2023 2:32 AM PERCH MENDER Narrative [facility] - 10/26/2023 2:54 AM PERCH MENDER Draw STAT PTT 6 hrs after initiation of heparin infusion, draw STAT PTT 6 hours after each dose change, and every 6 hours until 2 consecutive PTTs are within therapeutic range. Once two consecutive PTT's are therapeutic (66-100 seconds), then draw PTT every AM until heparin is discontinued. Hayder Vu Jr., MD LAB BLOOD ORDERABLE S Final Result Performing Organization Address [facility] de Phone Number [facility] [place] [address] * Type and screen (10/26/2023 2:21 AM PERCH MENDER) Jigna, indirect Negative ABO Rh O Positive [facility] Blood 10/26/2023 2:21 AM PERCH MENDER 10/26/2023 2:32 AM PERCH MENDER Narrative [facility] - 10/26/2023 3:20 AM PERCH MENDER Has the patient had Daratumumab or Isatuximab in the past 6 months?->Unknown Tia Nolan NP LAB BLOOD BANK TEST OR DERABLES Final Result Performing Organization Address [facility] Co de Phone Number [facility] [place] [address] * (ABNORMAL) CBC without differential (10/26/2023 2:21 AM PERCH MENDER) [facility] WBC 9.0 3.8 - 9.9 K/cumm [facility] Hgb 6.7(L) 13.0 - 17.5 g/dL [facility] Hct 19.6(L) 38.9 - 50.3 % [facility] Plt 297 150 - 400 K/cumm [facility] MPV 10.9 9.1 - 12.3 fL [facility] RBC 2.15(L) 4.30 - 5.80 M/cumm [facility] MCV 91.2 81.3 - 96.4 fL [facility] MCH 31.2 27.1 - 33.3 pg [facility] MCHC 34.2 32.3 - 35.7 g/dL [facility] RDW CV 12.5 11.1 - 14.9 % [facility] RDW SD 41.9 35.7 - 48.1 fL [facility] NRBC abs 0.00 0.00 - 0.01 K/cumm [facility] Blood 10/26/2023 2:21 AM PERCH MENDER 10/26/2023 2:40 AM PERCH MENDER Tia Nolan NP LAB BLOOD ORDERABLES F inal Result Performing Organization Address [facility] Co de Phone Number [facility] [place] [address] * Phosphorus (10/26/2023 2:21 AM PERCH MENDER) [facility] Phosphorus, pl 2.3 2.3 - 4.5 mg/dL [facility] Blood 10/26/2023 2:21 AM PERCH MENDER 10/26/2023 2:40 AM PERCH MENDER Tia Nolan NP LAB BLOOD ORDERABLES F inal Result Performing Organization Address City/State/[facility] Co de Phone Number [facility] [place] [address] * Magnesium (10/26/2023 2:21 AM PERCH MENDER) Magnesium 1.8 1.4 - 2.5 mg/dL [facility] Blood 10/26/2023 2:21 AM PERCH MENDER 10/26/2023 2:40 AM PERCH MENDER Tia Nolan HOST LAB BLOOD ORDERABLES F inal Result Performing Organization Address [facility] de Phone Number [facility] [place] [address] * Potassium, whole blood (10/25/2023 10:11 PM PERCH MENDER) Potassium, bld 3.5 3.3 - 4.9 mmol/L [facility] Blood 10/25/2023 10:1 1 PM PERCH MENDER 10/25/2023 10:19 PM PERCH MENDER Tia Nolan HOST LAB BLOOD ORDERABLES F inal Result Performing Organization Address [facility] Co de Phone Number [facility] [place] [address] * Critical Care (10/25/2023 9:09 PM PERCH MENDER) Narrative Wilder Arceo Jr., MD - 10/25/2023 9:09 PM PERCH MENDER Tia Nolan NP ? 10/26/2023 12:17 AM [...] plan with the patient's team and other medical/workforce consultant staff. This time was in addition to and separate from care provided by other practitioners on this day of service. ? I spent time reviewing and interpreting data from bedside monitors, laboratory results, and imaging, I spent time discussing the management of this critically ill patient with consultants and the medical staff and I spent time documenting in the medical record Tia Nolan NP IN CLINIC/BEDSIDE JOSE PRUITT Final Result * eGFR (10/25/2023 8:41 PM PERCH MENDER) [facility] eGFR >90 >=60 mL/min/1. 73 m2 [facility] Comment: Interpretive Data Reference Interval Normal [...] last reviewed 2021. Blood 10/25/2023 8:41 PM PERCH MENDER 10/25/2023 8:58 PM PERCH MENDER us Oneyda Foley NP LAB BLOOD ORDERABLES Final Res ult [facility] [place] [address] * (ABNORMAL) Differential, auto (10/25/2023 8:41 PM PERCH MENDER) Neutrophil abs 7.3(H) 1.5 - 6.5 K/cumm [facility] Imm gran abs 0.1 0.0 - 0.1 K/cumm [facility] Lymphocyte abs 1.6 0.8 - 3.3 K/cumm [facility] Monocyte abs 0.8 0.2 - 0.8 K/cumm [facility] Eosinophil abs 0.3 0.0 - 0.5 K/cumm [facility] Basophil abs 0.0 0.0 - 0.1 K/cumm [facility] Neutrophil pct 72.9 % [facility] Comment: Interpretive Data Percent cell count reference ranges are not reported, since discordance with absolute values may lead to misinterpretation of CBC data. Current Interpretive Data was last revised on 2018. Imm gran pct 0.5 % [facility] Comment: Interpretive Data Percent cell count reference ranges are not reported, since discordance with absolute values may lead to misinterpretation of CBC data. Current Interpretive Data was last revised on 2018. Lymphocyte pct 15.7 % [facility] Comment: Interpretive Data Percent cell count reference ranges are not reported, since discordance with absolute values may lead to misinterpretation of CBC data. Current Interpretive Data was last revised on 2018. Monocyte pct 7.8 % [facility] Comment: Interpretive Data Percent cell count reference ranges are not reported, since discordance with absolute values may lead to misinterpretation of CBC data. Current Interpretive Data was last revised on 2018. Eosinophil pct 2.7 % [facility] Comment: Interpretive Data Percent cell count reference ranges are not reported, since discordance with absolute values may lead to misinterpretation of CBC data. Current Interpretive Data was last revised on 2018. Basophil pct 0.4 % [facility] Comment: Interpretive Data Percent cell count reference ranges are not reported, since discordance with absolute values may lead to misinterpretation of CBC data. Current Interpretive Data was last revised on 2018. Blood 10/25/2023 8:41 PM PERCH MENDER 10/25/2023 8:58 PM PERCH MENDER Oneyda Foley HOST LAB BLOOD ORDERABLES Final Res ult Performing Organization Address [facility] Co de Phone Number [facility] [place] [address] * (ABNORMAL) CBC with auto differential (10/25/2023 8:41 PM PERCH MENDER) WBC 10.0(H) 3.8 - 9.9 K/cumm [facility] Hgb 7.0(L) 13.0 - 17.5 g/dL [facility] Hct 19.7(L) 38.9 - 50.3 % [facility] Plt 320 150 - 400 K/cumm [facility] MPV 11.6 9.1 - 12.3 fL [facility] RBC 2.14(L) 4.30 - 5.80 M/cumm [facility] MCV 92.1 81.3 - 96.4 fL [facility] MCH 32.7 27.1 - 33.3 pg [facility] MCHC 35.5 32.3 - 35.7 g/dL [facility] RDW CV 12.6 11.1 - 14.9 % [facility] RDW SD 42.2 35.7 - 48.1 fL [facility] NRBC abs 0.00 0.00 - 0.01 K/cumm [facility] Blood 10/25/2023 8:41 PM PERCH MENDER 10/25/2023 8:58 PM PERCH MENDER Tia Nolan HOST LAB BLOOD ORDERABLES F inal Result Performing Organization Address [facility]/ZIP Co de Phone Number [facility] [place] [address] * (ABNORMAL) Basic metabolic panel (10/25/2023 8:41 PM PERCH MENDER) Sodium 133(L) 135 - 145 mmol/L [facility] Potassium, pl See Comment 3.3 - 4.9 mmol/L [facility] Comment:Credited; Hemolyzed Specimen Chloride 103 97 - 110 mmol/L [facility] CO2 26 22 - 32 mmol/L [facility] Anion gap 4 2 - 15 mmol/L [facility] BUN 13 6 - 25 mg/dL [facility] Creatinine 0.86 0.80 - 1.30 mg/dL [facility] Glucose 157 70 - 199 mg/dL [facility] [...] 2022. Calcium 7.8(L) 8.5 - 10.3 mg/dL [facility] Blood 10/25/2023 8:41 PM PERCH MENDER 10/25/2023 8:58 PM PERCH MENDER Tia Nolan NP LAB BLOOD ORDERABLES F inal Result [facility] [place] [address] * POCT glucose (10/25/2023 7:22 PM PERCH MENDER) Pathologist [facility] Glucose, POC 162 70 - 199 mg/dL [facility] Blood 10/25/2023 7:22 PM PERCH MENDER 10/25/2023 7:22 PM PERCH MENDER us Hayder Vu Jr., MD LAB POCT ORDERABLES - DEVICE Final Result [facility] [place] [address] * Critical Care (10/25/2023 6:45 PM PERCH MENDER) Narrative Luana Brady NP - 10/25/2023 6:45 PM PERCH MENDER Luana rBady NP ? 10/25/2023 ??6:45 PM Critical Care [...] plan with the patient's team and other medical/workforce consultant staff. This time was in addition to and separate from care provided by other practitioners on this day of service. ?? us Luana Brady NP IN CLINIC/BEDSIDE ORDERABLES Final Result * (ABNORMAL) aPTT (10/25/2023 4:59 PM PERCH MENDER) [facility] aPTT 62(H) 28 - 38 sec [facility] Comment: Interpretive Data Heparin therapeutic range: 66.0 - 100.0 seconds. Range based on correlation with therapeutic heparin activity range of 0.3 - 0.7 Units/mL. Current interpretive data was last revised on 2023. Blood 10/25/2023 4:59 PM PERCH MENDER 10/25/2023 5:12 PM PERCH MENDER Narrative [facility] - 10/25/2023 5:34 PM PERCH MENDER Draw STAT PTT 6 hrs after initiation of heparin infusion, draw STAT PTT 6 hours after each dose change, and every 6 hours until 2 consecutive PTTs are within therapeutic range. Once two consecutive PTT's are therapeutic (66-100 seconds), then draw PTT every AM until heparin is discontinued. us Hayder Vu Jr., MD LAB BLOOD ORDERABLE S Final Result Performing Organization Address [facility] Co de Phone Number [facility] [place] [address] * POCT glucose (10/25/2023 3:09 PM PERCH MENDER) Glucose, POC 118 70 - 199 mg/dL [facility] Blood 10/25/2023 3:09 PM PERCH MENDER 10/25/2023 3:09 PM PERCH MENDER us Hayder Vu Jr., MD LAB POCT ORDERABLES - DEVICE Final Result Performing Organization Address [facility] de Phone Number [facility] [place] [address] * MRI Brain Epilepsy W WO Contrast (10/25/2023 1:55 PM PERCH MENDER) Anatomical Region Laterality Modality Head and Neck N/A Magnetic Resonan ce 10/25/2023 2:57 PM PERCH MENDER Impressions 10/25/2023 3:42 PM PERCH MENDER 1. ??Thin bilateral convexity subdural hematomas, not [...] Francia Schmitz M.D. Narrative 10/25/2023 3:42 PM PERCH MENDER EXAMINATION: Magnetic resonance imaging (MRI) of the [...] Result * POCT glucose (10/25/2023 10:57 AM PERCH MENDER) [facility] Glucose, POC 195 70 - 199 mg/dL [facility] Blood 10/25/2023 10:5 7 AM PERCH MENDER 10/25/2023 10:57 AM PERCH MENDER Hayder Vu Jr., MD LAB POCT ORDERABLES - DEVICE Final Result [facility] [place] [address] * (ABNORMAL) Differential, auto (10/25/2023 10:14 AM PERCH MENDER) Pathologist [facility] Neutrophil abs 10.6(H) 1.5 - 6.5 K/cumm [facility] Imm gran abs 0.1 0.0 - 0.1 K/cumm [facility] Lymphocyte abs 1.5 0.8 - 3.3 K/cumm [facility] Monocyte abs 0.9(H) 0.2 - 0.8 K/cumm [facility] Eosinophil abs 0.2 0.0 - 0.5 K/cumm [facility] Basophil abs 0.1 0.0 - 0.1 K/cumm [facility] Neutrophil pct 79.5 % [facility] Comment: Interpretive Data Percent cell count reference ranges are not reported, since discordance with absolute values may lead to misinterpretation of CBC data. Current Interpretive Data was last revised on 2018. Imm gran pct 0.5 % [facility] Comment: Interpretive Data Percent cell count reference ranges are not reported, since discordance with absolute values may lead to misinterpretation of CBC data. Current Interpretive Data was last revised on 2018. Lymphocyte pct 11.3 % [facility] Comment: Interpretive Data Percent cell count reference ranges are not reported, since discordance with absolute values may lead to misinterpretation of CBC data. Current Interpretive Data was last revised on 2018. Monocyte pct 6.9 % [facility] Comment: Interpretive Data Percent cell count reference ranges are not reported, since discordance with absolute values may lead to misinterpretation of CBC data. Current Interpretive Data was last revised on 2018. Eosinophil pct 1.1 % [facility] Comment: Interpretive Data Percent cell count reference ranges are not reported, since discordance with absolute values may lead to misinterpretation of CBC data. Current Interpretive Data was last revised on 2018. Basophil pct 0.7 % [facility] Comment: Interpretive Data Percent cell count reference ranges are not reported, since discordance with absolute values may lead to misinterpretation of CBC data. Current Interpretive Data was last revised on 2018. Blood 10/25/2023 10:1 4 AM PERCH MENDER 10/25/2023 10:27 AM PERCH MENDER us Hayder Vu Jr., MD LAB BLOOD ORDERABLE S Final Result [facility] [place] [address] * (ABNORMAL) aPTT (10/25/2023 10:14 AM PERCH MENDER) aPTT 60(H) 28 - 38 sec [facility] Comment: Interpretive Data Heparin therapeutic range: 66.0 - 100.0 seconds. Range based on correlation with therapeutic heparin activity range of 0.3 - 0.7 Units/mL. Current interpretive data was last revised on 2023. Blood 10/25/2023 10:1 4 AM PERCH MENDER 10/25/2023 10:27 AM PERCH MENDER Narrative [facility] - 10/25/2023 10:56 AM PERCH MENDER Draw STAT PTT 6 hrs after initiation of heparin infusion, draw STAT PTT 6 hours after each dose change, and every 6 hours until 2 consecutive PTTs are within therapeutic range. Once two consecutive PTT's are therapeutic (66-100 seconds), then draw PTT every AM until heparin is discontinued. us Hayder Vu Jr., MD LAB BLOOD ORDERABLE S Final Result [facility] [place] [address] * (ABNORMAL) CBC with auto differential (10/25/2023 10:14 AM PERCH MENDER) WBC 13.3(H) 3.8 - 9.9 K/cumm [facility] Hgb 8.2(L) 13.0 - 17.5 g/dL [facility] Hct 24.1(L) 38.9 - 50.3 % [facility] Plt 367 150 - 400 K/cumm [facility] MPV 11.0 9.1 - 12.3 fL [facility] RBC 2.57(L) 4.30 - 5.80 M/cumm [facility] MCV 93.8 81.3 - 96.4 fL [facility] MCH 31.9 27.1 - 33.3 pg [facility] MCHC 34.0 32.3 - 35.7 g/dL [facility] RDW CV 12.4 11.1 - 14.9 % [facility] RDW SD 43.0 35.7 - 48.1 fL [facility] NRBC abs 0.00 0.00 - 0.01 K/cumm [facility] Blood 10/25/2023 10:1 4 AM PERCH MENDER 10/25/2023 10:27 AM PERCH MENDER us Hayder Vu Jr., MD LAB BLOOD ORDERABLE S Final Result [facility] [place] [address] * XR Chest 1 View (10/25/2023 9:52 AM PERCH MENDER) Anatomical Region Laterality Modality Body, Chest N/A Computed Radiogr aphy 10/25/2023 11:1 3 AM PERCH MENDER Impressions 10/25/2023 11:23 AM PERCH MENDER Comparison made to chest radiograph 10/22/2023 at [...] Keely Williamson M.D. Narrative 10/25/2023 11:23 AM PERCH MENDER EXAMINATION: 1 view chest radiograph Procedure Note Keely Williamson MD - 10/25/2023 EXAMINATION: 1 view chest radiograph IMPRESSION: Comparison made to chest radiograph 10/22/2023 at 6:07 AM. No focal consolidation, pleural effusion, or pneumothorax. Unchanged elevation left hemidiaphragm. Bilateral rib fractures are better appreciated on prior CT. Dictated by: Alice Riso MD, PhD. The radiology attending physician has personally reviewed this study, and had reviewed and/or edited this written report and agrees with it. Electronically signed by: Keely Williamson M.D. us Hayder Vu Jr., MD IMG XR PROCEDURES F inal Result * POCT glucose (10/25/2023 6:58 AM PERCH MENDER) Glucose, POC 129 70 - 199 mg/dL [facility] Blood 10/25/2023 6:58 AM PERCH MENDER 10/25/2023 6:58 AM PERCH MENDER us Hayder Vu Jr., MD LAB POCT ORDERABLES - DEVICE Final Result Performing Organization Address [facility] Co de Phone Number [facility] [place] [address] * POCT glucose (10/25/2023 3:44 AM PERCH MENDER) Glucose, POC 102 70 - 199 mg/dL [facility] Blood 10/25/2023 3:44 AM PERCH MENDER 10/25/2023 3:44 AM PERCH MENDER us Hayder Vu Jr., MD LAB POCT ORDERABLES - DEVICE Final Result Performing Organization Address [facility] Phone Number [facility] [place] [address] * (ABNORMAL) aPTT (10/25/2023 3:14 AM PERCH MENDER) aPTT 47(H) 28 - 38 sec [facility] Comment: Interpretive Data Heparin therapeutic range: 66.0 - 100.0 seconds. Range based on correlation with therapeutic heparin activity range of 0.3 - 0.7 Units/mL. Current interpretive data was last revised on 2023. Blood 10/25/2023 3:14 AM PERCH MENDER 10/25/2023 3:25 AM PERCH MENDER Narrative [facility] - 10/25/2023 3:47 AM PERCH MENDER Draw STAT PTT 6 hrs after initiation of heparin infusion, draw STAT PTT 6 hours after each dose change, and every 6 hours until 2 consecutive PTTs are within therapeutic range. Once two consecutive PTT's are therapeutic (66-100 seconds), then draw PTT every AM until heparin is discontinued. us Hayder Vu Jr., MD LAB BLOOD ORDERABLE S Final Result Performing Organization Address [facility] de Phone Number [facility] Department [place] [address] * POCT glucose (10/24/2023 11:45 PM PERCH MENDER) Glucose, POC 141 70 - 199 mg/dL [facility] Blood 10/24/2023 11:4 5 PM PERCH MENDER 10/24/2023 11:45 PM PERCH MENDER Hayder Vu Jr., MD LAB POCT ORDERABLES - DEVICE Final Result Performing Organization Address [facility] Co de Phone Number [facility] [place] [address] * Critical Care (10/24/2023 11:00 PM PERCH MENDER) Narrative Wilder Arceo Jr., MD - 10/24/2023 11:00 PM PERCH MENDER Wilder Arceo Jr., MD ? 10/25/2023 12:47 [...] plan with the ICU team and other medical/workforce consultant staff, making frequent assessments and decisions [...] Acute pain/acute postoperative pain and Seizure ?? [id number] mycardial infarction (Non-STEMI) and Cardiac arrest ?? [...] * (ABNORMAL) Calcium, ionized (10/24/2023 9:11 PM PERCH MENDER) Pathologist [facility] Calcium, Ionized 4.38(L) 4.50 - 5.10 mg/dL [facility] Blood 10/24/2023 9:11 PM PERCH MENDER 10/24/2023 9:18 PM PERCH MENDER Hayder Vu Jr., MD LAB BLOOD ORDERABLE S Final Result Performing Organization Address City/[facility]/ZIP Co de Phone Number [facility] [place] [address] * POCT glucose (10/24/2023 7:42 PM PERCH MENDER) Pathologist [facility] Glucose, POC 122 70 - 199 mg/dL [facility] Blood 10/24/2023 7:42 PM PERCH MENDER 10/24/2023 7:42 PM PERCH MENDER Hayder Vu Jr., MD LAB POCT ORDERABLES - DEVICE Final Result Performing Organization Address City/[facility]/ZIP Co de Phone Number [facility] [place] [address] * (ABNORMAL) Basic metabolic panel (10/24/2023 7:06 PM PERCH MENDER) Sodium 136 135 - 145 mmol/L [facility] Potassium, pl 3.7 3.3 - 4.9 mmol/L [facility] Chloride 104 97 - 110 mmol/L [facility] CO2 25 22 - 32 mmol/L [facility] Anion gap 7 2 - 15 mmol/L [facility] BUN 13 6 - 25 mg/dL [facility] Creatinine 0.94 0.80 - 1.30 mg/dL [facility] Glucose 126 70 - 199 mg/dL [facility] 2022. Calcium 8.1(L) 8.5 - 10.3 mg/dL [facility] Blood 10/24/2023 7:06 PM PERCH MENDER 10/24/2023 7:12 PM PERCH MENDER us Hayder Vu Jr., MD LAB BLOOD ORDERABLE S Final Result [facility] [place] [address] * eGFR (10/24/2023 7:06 PM PERCH MENDER) eGFR 86 >=60 mL/min/1. 73 m2 [facility] Comment: Interpretive Data Reference Interval [...] last reviewed 2021. Blood 10/24/2023 7:06 PM PERCH MENDER 10/24/2023 7:16 PM PERCH MENDER us Hayder Vu Jr., MD LAB BLOOD ORDERABLE S Final Result [facility] [place] [address] * (ABNORMAL) Differential, auto (10/24/2023 7:06 PM PERCH MENDER) Neutrophil abs 10.4(H) 1.5 - 6.5 K/cumm [facility] Imm gran abs 0.1 0.0 - 0.1 K/cumm [facility] Lymphocyte abs 1.2 0.8 - 3.3 K/cumm [facility] Monocyte abs 0.9(H) 0.2 - 0.8 K/cumm [facility] Eosinophil abs 0.1 0.0 - 0.5 K/cumm [facility] Basophil abs 0.1 0.0 - 0.1 K/cumm [facility] Neutrophil pct 82.0 % [facility] Comment: Interpretive Data Percent cell count reference ranges are not reported, since discordance with absolute values may lead to misinterpretation of CBC data. Current Interpretive Data was last revised on 2018. Imm gran pct 0.5 % [facility] Comment: Interpretive Data Percent cell count reference ranges are not reported, since discordance with absolute values may lead to misinterpretation of CBC data. Current Interpretive Data was last revised on 2018. Lymphocyte pct 9.7 % [facility] Comment: Interpretive Data Percent cell count reference ranges are not reported, since discordance with absolute values may lead to misinterpretation of CBC data. Current Interpretive Data was last revised on 2018. Monocyte pct 6.9 % [facility] Comment: Interpretive Data Percent cell count reference ranges are not reported, since discordance with absolute values may lead to misinterpretation of CBC data. Current Interpretive Data was last revised on 2018. Eosinophil pct 0.4 % [facility] Comment: Interpretive Data Percent cell count reference ranges are not reported, since discordance with absolute values may lead to misinterpretation of CBC data. Current Interpretive Data was last revised on 2018. Basophil pct 0.5 % [facility] Comment: Interpretive Data Percent cell count reference ranges are not reported, since discordance with absolute values may lead to misinterpretation of CBC data. Current Interpretive Data was last revised on 2018. Blood 10/24/2023 7:0 6 PM PERCH MENDER 10/24/2023 7:16 PM PERCH MENDER us Oneyda Foley HOST LAB BLOOD ORDERABLES Final Res ult [facility] [place] [address] * Phosphorus (10/24/2023 7:06 PM PERCH MENDER) Phosphorus, pl 3.3 2.3 - 4.5 mg/dL [facility] Blood 10/24/2023 7:06 PM PERCH MENDER 10/24/2023 7:12 PM PERCH MENDER us Tia Nolan HOST LAB BLOOD ORDERABLES F inal Result [facility] [place] [address] * Magnesium (10/24/2023 7:06 PM PERCH MENDER) Pathologist [facility] Magnesium 2.1 1.4 - 2.5 mg/dL [facility] Blood 10/24/2023 7:06 PM PERCH MENDER 10/24/2023 7:12 PM PERCH MENDER Tia Nolan HOST LAB BLOOD ORDERABLES F inal Result Performing Organization Address City/[facility]/ZIP Co de Phone Number [facility] [place] [address] * (ABNORMAL) CBC with auto differential (10/24/2023 7:06 PM PERCH MENDER) [facility] WBC 12.7(H) 3.8 - 9.9 K/cumm [facility] Hgb 7.6(L) 13.0 - 17.5 g/dL [facility] Hct 22.1(L) 38.9 - 50.3 % [facility] Plt 332 150 - 400 K/cumm [facility] MPV 10.8 9.1 - 12.3 fL [facility] RBC 2.42(L) 4.30 - 5.80 M/cumm [facility] MCV 91.3 81.3 - 96.4 fL [facility] MCH 31.4 27.1 - 33.3 pg [facility] MCHC 34.4 32.3 - 35.7 g/dL [facility] RDW CV 12.5 11.1 - 14.9 % [facility] RDW SD 42.5 35.7 - 48.1 fL [facility] NRBC abs 0.00 0.00 - 0.01 K/cumm [facility] Blood 10/24/2023 7:06 PM PERCH MENDER 10/24/2023 7:16 PM PERCH MENDER Tia Nolan HOST LAB BLOOD ORDERABLES F inal Result Performing Organization Address City/[facility]/ZIP Co de Phone Number [facility] [place] [address] * aPTT (10/24/2023 7:06 PM PERCH MENDER) aPTT 35 28 - 38 sec [facility] Comment: Interpretive Data Heparin therapeutic range: 66.0 - 100.0 seconds. Range based on correlation with therapeutic heparin activity range of 0.3 - 0.7 Units/mL. Current interpretive data was last revised on 2023. Blood 10/24/2023 7:06 PM PERCH MENDER 10/24/2023 7:13 PM PERCH MENDER Oneyda Foley NP LAB BLOOD ORDERABLES Final Res ult Performing Organization Address [facility] [place] [address] * (ABNORMAL) Protime-INR (10/24/2023 7:06 PM PERCH MENDER) Pathologist [facility] PT 13.8(H) 10.3 - 13.7 sec [facility] INR 1.21(H) 0.90 - 1.20 [facility] Comment: Interpretive data Oral anticoagulant therapeutic ranges: Venous thromboembolism prophylaxis or treatment: 2.0-3.0 CARDIOLOGY Standard range: 2.0-3.0 High-intensity range: 2.5-3.5 Refer to indication-specific guidelines for appropriate target ranges for prosthetic heart valve replacement. Current interpretive data was last revised on 2019. Blood 10/24/2023 7:06 PM PERCH MENDER 10/24/2023 7:13 PM PERCH MENDER Oneyda Foley NP LAB BLOOD ORDERABLES Final Res ult Performing Organization Address [facility] [place] [address] * POCT glucose (10/24/2023 2:58 PM PERCH MENDER) Glucose, POC 122 70 - 199 mg/dL [facility] Blood 10/24/2023 2:58 PM PERCH MENDER 10/24/2023 2:58 PM PERCH MENDER Hayder Vu Jr., MD LAB POCT ORDERABLES - DEVICE Final Result Performing Organization Address [facility] [place] [address] * aPTT (10/24/2023 12:18 PM PERCH MENDER) aPTT 35 28 - 38 sec [facility] Comment: Interpretive Data Heparin therapeutic range: 66.0 - 100.0 seconds. Range based on correlation with therapeutic heparin activity range of 0.3 - 0.7 Units/mL. Current interpretive data was last revised on 2023. Blood 10/24/2023 12:1 8 PM PERCH MENDER 10/24/2023 12:30 PM PERCH MENDER Narrative [facility] - 10/24/2023 12:55 PM PERCH MENDER Draw STAT PTT 6 hrs after initiation of heparin infusion, draw STAT PTT 6 hours after each dose change, and every 6 hours until 2 consecutive PTTs are within therapeutic range. Once two consecutive PTT's are therapeutic (66-100 seconds), then draw PTT every AM until heparin is discontinued. Hayder Vu Jr., MD LAB BLOOD ORDERABLE S Final Result Performing Organization Address [facility] de Phone Number [facility] [place] [address] * TRANSTHORACIC ECHO (TTE) COMPLETE W DOPPLER/CF W CONTRAST (10/24/2023 11:43 AM PERCH MENDER) Pathologist [facility] LV EF 70 % CARDIOREPORT Anatomical Region Laterality Modality Ultrasound 10/24/2023 7:00 AM PERCH MENDER Narrative 10/24/2023 12:10 PM PERCH MENDER Patient name: Hira vEans Date of test: 10/24/2023 Type of test: TTE w/Doppler [facility] #: 0 Date of : 1950 (M) Machine Fastener: Krystal Wasserman RDCS Referring Physician: HAYDER VU MD Contrast Agent: 1.1 ml Optison Administered, (1.9 ml wasted). Contrast Administered by: icu nurse Supervised/Interpreted by: Woody White MD Diagnosis: Location: [facility] Reason for test: Post arrest, bilateral [...] 2=Hypo 3=Akinetic 4=Dyskin./Aneurysm 0=Not visualized) Parasternal [place]:MAS=1 BAS=1 MIL=1 HIPOLITO=1 Parasternal [place]:MAS=1 MIS=1 DE=1 MIL=1 MAL=1 MA=1 Apical 4 Chambers:=1 MIS=1 BIS=1 BAL=1 MAL=1 AL=1 AC=1 Apical 2 Chambers:AI=1 DE=1 BI=1 BA=1 MA=1 AA=1 AC=1 LV Global [...] MD By signing this report, the attending crust sorter certifies that he or she has personally supervised and interpreted the echocardiogram and has reviewed and or edited and agrees with the written comments contained within the report. Procedure Note Woody Hidalgo MD - 10/24/2023 Patient name: Hira Evans Date of test: 10/24/2023 Type of test: TTE w/Doppler [facility] #: 0 Date of : 1950 (M) Machine Fastener: Krystal Wasserman [facility] Referring Physician: HAYDER VU MD Contrast Agent: 1.1 ml Optison Administered, (1.9 ml wasted). Contrast Administered by: icu nurse Supervised/Interpreted by: Woody White MD Diagnosis: Location: [facility] Reason for test: Post arrest, bilateral [...] 2=Hypo 3=Akinetic 4=Dyskin./Aneurysm 0=Not visualized) Parasternal [place]:MAS=1 BAS=1 MIL=1 HIPOLITO=1 Parasternal [place]:MAS=1 MIS=1 DE=1 MIL=1 MAL=1 MA=1 Apical 4 Chambers:=1 MIS=1 BIS=1 BAL=1 MAL=1 AL=1 AC=1 Apical 2 Chambers:AI=1 DE=1 BI=1 BA=1 MA=1 AA=1 AC=1 LV Global [...] MD By signing this report, the attending crust sorter certifies that he or she has personally supervised and interpreted the echocardiogram and has reviewed and or edited and agrees with the written comments contained within the report. Hayder Vu Jr., MD CV ECHO PROCEDURES Final Result * POCT glucose (10/24/2023 11:04 AM PERCH MENDER) [facility] Signature Glucose, POC 121 70 - 199 mg/dL [facility] Blood 10/24/2023 11:0 4 AM PERCH MENDER 10/24/2023 11:04 AM PERCH MENDER Hayder Vu Jr., MD LAB POCT ORDERABLES - DEVICE Final Result [facility] [place] [address] * (ABNORMAL) Troponin I high-sensitivity 6-hour (10/24/2023 9:39 AM PERCH MENDER) Trop I hs 133(H) <=35 ng/L [facility] Comment: Interpretive Data For further hscTnI resources including the diagnostic algorithm and an aid in interpretation, copy and paste this link: [email or web address] [email or web address] [email or web address]/show/hsTrop-[email or web address] Current Interpretive Data last revised 2020. Previous critical value noted within 48 hours ago. Trop I hs pct delta -35(C) % [facility] Trop I hs interp Significa nt(C) [facility] Blood 10/24/2023 9:39 AM PERCH MENDER 10/24/2023 9:54 AM PERCH MENDER us Hayder Vu Jr., MD LAB BLOOD ORDERABLE S Edited Result - Final Performing Organization Address City/[facility]/[place] [address] * (ABNORMAL) Troponin I high-sensitivity (10/24/2023 8:32 AM PERCH MENDER) Pathologist [facility] Trop I hs 153(H) <=35 ng/L [facility] Comment: Interpretive Data For further hscTnI resources including the diagnostic algorithm and an aid in interpretation, copy and paste this link: https://Body [email or web address] [email or web address]/show/hsTrop-[email or web address] Current Interpretive Data last revised 2020. Blood 10/24/2023 8:32 AM PERCH MENDER 10/24/2023 8:59 AM PERCH MENDER us Veronica MESA LAB BLOOD ORDERABLES Fi nal Result [facility] [place] [address] * POCT glucose (10/24/2023 7:31 AM PERCH MENDER) Glucose, POC 111 70 - 199 mg/dL [facility] Blood 10/24/2023 7:31 AM PERCH MENDER 10/24/2023 7:31 AM PERCH MENDER us Hayder Vu Jr., MD LAB POCT ORDERABLES - DEVICE Final Result Performing Organization Address City/State/[facility] Co de Phone Number [facility] [place] [address] * Critical Care (10/24/2023 6:48 AM PERCH MENDER) Narrative Avel Bourne MD - 10/24/2023 6:48 AM PERCH MENDER Rob Langley NP ? 10/24/2023 ??5:31 PM [...] plan with the ICU team and other medical/workforce consultant staff, making frequent assessments and decisions [...] the following conditions: ?? us Rob Langley HOST IN CLINIC/BEDS ADELE ORDERABLES Final Result * aPTT (10/24/2023 5:38 AM PERCH MENDER) aPTT 30 28 - 38 sec [facility] Comment: Interpretive Data Heparin therapeutic range: 66.0 - 100.0 seconds. Range based on correlation with therapeutic heparin activity range of 0.3 - 0.7 Units/mL. Current interpretive data was last revised on 2023. Blood 10/24/2023 5:38 AM PERCH MENDER 10/24/2023 5:43 AM PERCH MENDER Narrative [facility] - 10/24/2023 6:06 AM PERCH MENDER Draw STAT PTT 6 hrs after initiation of heparin infusion, draw STAT PTT 6 hours after each dose change, and every 6 hours until 2 consecutive PTTs are within therapeutic range. Once two consecutive PTT's are therapeutic (66-100 seconds), then draw PTT every AM until heparin is discontinued. us Hayder Vu Jr., MD LAB BLOOD ORDERABLE S Final Result Performing Organization Address [facility] Co de Phone Number [facility] [place] [address] * (ABNORMAL) Troponin I high-sensitivity 2-hour (10/24/2023 5:38 AM PERCH MENDER) Trop I hs 195(H) <=35 ng/L [facility] Comment: Previous critical value noted within 48 hours ago. Interpretive Data For further [facility] resources including the diagnostic algorithm and an aid in interpretation, copy and paste this link: https://bjhlab.testcatalog.org/show/hsTrop-1 Current Interpretive Data last revised 2020. Trop I hs pct delta -5 % [facility] Comment:Previous critical va lue noted within 48 hours ago. Trop I hs interp Equivocal [facility] Comment:Previous critical va lue noted within 48 hours ago. Blood 10/24/2023 5:38 AM PERCH MENDER 10/24/2023 5:43 AM PERCH MENDER us Hayder Vu Jr., MD LAB BLOOD ORDERABLE S Final Result Performing Organization Address [facility]/ZIP Co de Phone Number [facility] [place] [address] * EEG (10/24/2023 5:02 AM PERCH MENDER) Anatomical Region Laterality Modality EEG Narrative 10/24/2023 4:40 PM PERCH MENDER Routine EEG Report Patient Name: Hira Evans [facility] Record Number (MRN): [id number] [facility] Record: [id number] Date of (): 1950 EEG Date: 10/24/2023 [...] 32 channel EEG recording acquired on a [place]-8 EEG-1200 acquisition system. Scalp electrodes were placed [...] * ECG 12 lead (10/24/2023 3:44 AM PERCH MENDER) Ventricular Rate EKG/Min 82 BPM [facility] Atrial Rate 82 BPM [facility] WI-Interval (MSEC) 166 ms [facility] QRS-Interval (MSEC) 78 ms [facility] QT-Interval (MSEC) 384 ms [facility] QTc 448 ms [facility] P [place] 34 degrees [facility] R [place] -30 degrees [facility] T [place] -13 degrees [facility] Diagnosis Normal sinus rhythm Left axis deviation Nonspecific ST abnormality Abnormal ECG No previous ECGs available Confirmed by ELLA LASSITER M.D ([id number]) on 10/25/2023 1:12:26 PM [facility] 10/24/2023 3:44 AM PERCH MENDER 10/25/2023 1:12 PM PERCH MENDER Tia Nolan HOST ECG ORDERABLES Final Result [facility] * Critical result callback Cardio chemistry (10/24/2023 3:38 AM PERCH MENDER) Date Notified [id number] [facility] Time Notified 451 [facility] Test name Trop I hs [facility] Called/Read Back Edwige Porras [facility] Credentials RN [facility] Called By SB [facility] Blood 10/24/2023 3:38 AM PERCH MENDER 10/24/2023 4:02 AM PERCH MENDER us Hayder Vu Jr., MD LAB BLOOD ORDERABLE S Final Result [facility] [place] [address] * (ABNORMAL) Troponin I high-sensitivity series (baseline, 2hr, 4hr, 6hr) (10/24/2023 3:38 AM PERCH MENDER) Trop I hs 206(C) <=35 ng/L [facility] Comment: reviewed Interpretive Data For further hscTnI resources including the diagnostic algorithm and an aid in interpretation, copy and paste this link: https://bjhlab.testcatalog.org/show/hsTrop-1 Current Interpretive Data last revised 2020. Blood 10/24/2023 3:38 AM PERCH MENDER 10/24/2023 4:02 AM PERCH MENDER us Hayder Vu Jr., MD LAB BLOOD ORDERABLE S Final Result Performing Organization Address [facility] Co de Phone Number [facility] [place] [address] * Lactate (10/24/2023 3:38 AM PERCH MENDER) [facility] Lactate 0.9 0.7 - 2.0 mmol/L [facility] Blood 10/24/2023 3:38 AM PERCH MENDER 10/24/2023 4:02 AM PERCH MENDER us Hayder Vu Jr., MD LAB BLOOD ORDERABLE S Final Result Performing Organization Address [facility] Co de Phone Number [facility] [place] [address] * POCT glucose (10/24/2023 3:25 AM PERCH MENDER) Glucose, POC 180 70 - 199 mg/dL [facility] Blood 10/24/2023 3:25 AM PERCH MENDER 10/24/2023 3:25 AM PERCH MENDER us Hayder Vu Jr., MD LAB POCT ORDERABLES - DEVICE Final Result Performing Organization Address City/[facility]/ZIP Co de Phone Number [facility] [place] [address] * (ABNORMAL) POCT glucose (10/24/2023 12:20 AM PERCH MENDER) Pathologist [facility] Glucose, POC 252(H) 70 - 199 mg/dL [facility] Blood 10/24/2023 12:2 0 AM PERCH MENDER 10/24/2023 12:20 AM PERCH MENDER Hayder Vu Jr., MD LAB POCT ORDERABLES - DEVICE Final Result Performing Organization Address [facility] de Phone Number [facility] [place] [address] * (ABNORMAL) aPTT (10/24/2023 12:20 AM PERCH MENDER) Pathologist [facility] aPTT 27(L) 28 - 38 sec [facility] Comment: Interpretive Data Heparin therapeutic range: 66.0 - 100.0 seconds. Range based on correlation with therapeutic heparin activity range of 0.3 - 0.7 Units/mL. Current interpretive data was last revised on 2023. Blood 10/24/2023 12:2 0 AM PERCH MENDER 10/24/2023 12:31 AM PERCH MENDER Narrative [facility] - 10/24/2023 12:58 AM PERCH MENDER Baseline prior to heparin initiation Hayder Vu Jr., MD LAB BLOOD ORDERABLE S Final Result Performing Organization Address [facility] Co de Phone Number [facility] [place] [address] * (ABNORMAL) CBC without differential (10/24/2023 12:20 AM PERCH MENDER) WBC 22.9(H) 3.8 - 9.9 K/cumm [facility] Hgb 9.0(L) 13.0 - 17.5 g/dL [facility] Hct 25.4(L) 38.9 - 50.3 % [facility] Plt 366 150 - 400 K/cumm [facility] MPV 10.8 9.1 - 12.3 fL [facility] RBC 2.76(L) 4.30 - 5.80 M/cumm [facility] MCV 92.0 81.3 - 96.4 fL [facility] MCH 32.6 27.1 - 33.3 pg [facility] MCHC 35.4 32.3 - 35.7 g/dL [facility] RDW CV 12.5 11.1 - 14.9 % [facility] RDW SD 41.8 35.7 - 48.1 fL [facility] NRBC abs 0.00 0.00 - 0.01 K/cumm [facility] Blood 10/24/2023 12:2 0 AM PERCH MENDER 10/24/2023 12:45 AM PERCH MENDER Narrative [facility] - 10/24/2023 12:55 AM PERCH MENDER Baseline prior to heparin initiation Hayder Vu Jr., MD LAB BLOOD ORDERABLE S Final Result [facility] [place] [address] * Protime-INR (10/24/2023 12:20 AM PERCH MENDER) PT 13.7 10.3 - 13.7 sec [facility] INR 1.20 0.90 - 1.20 [facility] Comment: Interpretive data Oral anticoagulant therapeutic ranges: Venous thromboembolism prophylaxis or treatment: 2.0-3.0 CARDIOLOGY Standard range: 2.0-3.0 High-intensity range: 2.5-3.5 Refer to indication-specific guidelines for appropriate target ranges for prosthetic heart valve replacement. Current interpretive data was last revised on 2019. Blood 10/24/2023 12:2 0 AM PERCH MENDER 10/24/2023 12:31 AM PERCH MENDER Narrative [facility] - 10/24/2023 12:58 AM PERCH MENDER Baseline prior to heparin initiation Hayder Vu Jr., MD LAB BLOOD ORDERABLE S Final Result Performing Organization Address [facility] Co de Phone Number [facility] [place] [address] * HIV 1/2 Antibody plus p24 Antigen Blood (10/24/2023 12:20 AM PERCH MENDER) HIV 1/2 ab + p24 ag Nonreactive Nonreactive [facility] Comment:Nonreactive for HIV- 1 antigen and HIV-1/HIV-2 antibodies. No laboratory evidence of HIV infection. If acute HIV infection is suspected, consider testing for HIV-1 RNA. Current interpretive data was last revised on 22. Blood 10/24/2023 12:2 0 AM PERCH MENDER 10/24/2023 12:45 AM PERCH MENDER us Hayder Vu Jr., MD LAB MICROBIOLOGY - GENERAL ORDERABLES Final Result Performing Organization Address [facility] Co de Phone Number [facility] [place] [address] * CT Chest PE (CTA) Abdomen Pelvis W Contrast (10/23/2023 11:48 PM PERCH MENDER) Anatomical Region Laterality Modality Body N/A Computed Tomogra phy 10/24/2023 12:1 1 AM PERCH MENDER Impressions 10/24/2023 7:15 AM PERCH MENDER 1. ??Acute pulmonary emboli involving the distal [...] Clemente Mathew M.D. Narrative 10/24/2023 7:15 AM PERCH MENDER EXAMINATION: CT CHEST PE (CTA) ABDOMEN PELVIS [...] and agrees with it. Electronically signed by: Clmeente Mathew M.D. Hayder Vu Jr., MD IMG CT PROCEDURES F inal Result * CT Head WO Contrast (10/23/2023 11:48 PM PERCH MENDER) Anatomical Region Laterality Modality Head and Neck N/A Computed Tomogra phy 10/24/2023 12:3 6 AM PERCH MENDER Impressions 10/24/2023 11:45 AM PERCH MENDER Subtle white matter hypoattenuation with loss of [...] Zac Mcgarry M.D. Narrative 10/24/2023 11:45 AM PERCH MENDER EXAMINATION: CT head without contrast HISTORY: 73-year-old [...] Result * Critical Care (10/23/2023 11:47 PM PERCH MENDER) Narrative Wilder Arceo Jr., MD - 10/23/2023 11:47 PM PERCH MENDER Wilder Arceo Jr., MD ? 10/24/2023 ??3:28 [...] plan with the ICU team and other medical/workforce consultant staff, making frequent assessments and decisions [...] * (ABNORMAL) Manual Differential (10/23/2023 11:03 PM PERCH MENDER) [facility] Signature Differential Auto CERNER BJ Neutrophil abs 23.5(H) 1.5 - 6.5 K/cumm [facility] Imm gran abs 0.9(H) 0.0 - 0.1 K/cumm [facility] Lymphocyte abs 1.1 0.8 - 3.3 K/cumm [facility] Monocyte abs 1.1(H) 0.2 - 0.8 K/cumm [facility] Eosinophil abs 0.1 0.0 - 0.5 K/cumm [facility] Basophil abs 0.1 0.0 - 0.1 K/cumm [facility] Neutrophil pct 88.2 % [facility] Comment: Interpretive Data Percent cell count reference ranges are not reported, since discordance with absolute values may lead to misinterpretation of CBC data. Current Interpretive Data was last revised on 2018. Imm gran pct 3.4 % [facility] Comment: Interpretive Data Percent cell count reference ranges are not reported, since discordance with absolute values may lead to misinterpretation of CBC data. Current Interpretive Data was last revised on 2018. Lymphocyte pct 3.9 % [facility] Comment: Interpretive Data Percent cell count reference ranges are not reported, since discordance with absolute values may lead to misinterpretation of CBC data. Current Interpretive Data was last revised on 2018. Monocyte pct 3.9 % [facility] Comment: Interpretive Data Percent cell count reference ranges are not reported, since discordance with absolute values may lead to misinterpretation of CBC data. Current Interpretive Data was last revised on 2018. Eosinophil pct 0.2 % [facility] Comment: Interpretive Data Percent cell count reference ranges are not reported, since discordance with absolute values may lead to misinterpretation of CBC data. Current Interpretive Data was last revised on 2018. Basophil pct 0.4 % [facility] Comment: Interpretive Data Percent cell count reference ranges are not reported, since discordance with absolute values may lead to misinterpretation of CBC data. Current Interpretive Data was last revised on 2018. RBC morphology Present(A) [facility] Polychromasia 3-7/HPF(A) [facility] Poikilocytosis Slight(A) [facility] Platelet estimate Adequate [facility] Blood 10/23/2023 11:0 3 PM PERCH MENDER 10/23/2023 11:43 PM PERCH MENDER Jimenez Henao MD LAB BLOOD ORDERABLES Final Result [facility] [place] [address] * (ABNORMAL) Differential, auto (10/23/2023 11:03 PM PERCH MENDER) Neutrophil abs 23.5(H) 1.5 - 6.5 K/cumm [facility] Imm gran abs 0.9(H) 0.0 - 0.1 K/cumm [facility] Lymphocyte abs 1.1 0.8 - 3.3 K/cumm [facility] Monocyte abs 1.1(H) 0.2 - 0.8 K/cumm [facility] Eosinophil abs 0.1 0.0 - 0.5 K/cumm [facility] Basophil abs 0.1 0.0 - 0.1 K/cumm [facility] Neutrophil pct 88.2 % [facility] Comment: Interpretive Data Percent cell count reference ranges are not reported, since discordance with absolute values may lead to misinterpretation of CBC data. Current Interpretive Data was last revised on 2018. Imm gran pct 3.4 % [facility] Comment: Interpretive Data Percent cell count reference ranges are not reported, since discordance with absolute values may lead to misinterpretation of CBC data. Current Interpretive Data was last revised on 2018. Lymphocyte pct 3.9 % [facility] Comment: Interpretive Data Percent cell count reference ranges are not reported, since discordance with absolute values may lead to misinterpretation of CBC data. Current Interpretive Data was last revised on 2018. Monocyte pct 3.9 % [facility] Comment: Interpretive Data Percent cell count reference ranges are not reported, since discordance with absolute values may lead to misinterpretation of CBC data. Current Interpretive Data was last revised on 2018. Eosinophil pct 0.2 % [facility] Comment: Interpretive Data Percent cell count reference ranges are not reported, since discordance with absolute values may lead to misinterpretation of CBC data. Current Interpretive Data was last revised on 2018. Basophil pct 0.4 % [facility] Comment: Interpretive Data Percent cell count reference ranges are not reported, since discordance with absolute values may lead to misinterpretation of CBC data. Current Interpretive Data was last revised on 2018. Blood 10/23/2023 11:0 3 PM PERCH MENDER 10/23/2023 11:11 PM PERCH MENDER us Jimenez Henao MD LAB BLOOD ORDERABLES Final Result [facility] [place] [address] * (ABNORMAL) Blood gas, arterial (10/23/2023 11:03 PM PERCH MENDER) pH, Art 7.38 7.35 - 7.45 [facility] PCO2, Arterial 37 35 - 45 mmHg [facility] PO2, Arterial 133(H) 83 - 108 mmHg [facility] HCO3 Art (Calculated) 22 20 - 30 mmol/L [facility] BE, art -3 mmol/L [facility] Comment: Interpretive Data No Reference Range Established Current Interpretive Data was last revised on 2017 O2 Sat Art (Measured) 99(H) 90 - 95 % [facility] Blood 10/23/2023 11:0 3 PM PERCH MENDER 10/23/2023 11:10 PM PERCH MENDER us Hayder Vu Jr., MD LAB BLOOD ORDERABLE S Final Result [facility] [place] [address] * (ABNORMAL) Calcium, ionized (10/23/2023 11:03 PM PERCH MENDER) Calcium, Ionized 4.41(L) 4.50 - 5.10 mg/dL [facility] Blood 10/23/2023 11:0 3 PM PERCH MENDER 10/23/2023 11:13 PM PERCH MENDER us Hayder Vu Jr., MD LAB BLOOD ORDERABLE S Final Result [facility] [place] [address] * (ABNORMAL) CBC with auto differential (10/23/2023 11:03 PM PERCH MENDER) [facility] WBC 26.7(H) 3.8 - 9.9 K/cumm [facility] Hgb 9.0(L) 13.0 - 17.5 g/dL [facility] Hct 27.3(L) 38.9 - 50.3 % [facility] Plt 418(H) 150 - 400 K/cumm [facility] MPV 11.3 9.1 - 12.3 fL [facility] RBC 2.88(L) 4.30 - 5.80 M/cumm [facility] MCV 94.8 81.3 - 96.4 fL [facility] Comment:MCV delta due to manpreet gical procedure. Spoke to Edwige Porras RN. MCH 31.3 27.1 - 33.3 pg [facility] MCHC 33.0 32.3 - 35.7 g/dL [facility] RDW CV 12.4 11.1 - 14.9 % [facility] RDW SD 43.5 35.7 - 48.1 fL [facility] NRBC abs 0.00 0.00 - 0.01 K/cumm [facility] Blood 10/23/2023 11:0 3 PM PERCH MENDER 10/23/2023 11:11 PM PERCH MENDER us Tia Nolan NP LAB BLOOD ORDERABLES E dited Result - Final Performing Organization Address City/[facility]/ZIP Co de Phone Number [facility] [place] [address] * (ABNORMAL) Lipid panel (10/23/2023 11:02 PM PERCH MENDER) [facility] Cholesterol 162 30 - 199 mg/dL [facility] Comment: Interpretive Data Ages < or = [...] on 2018. Triglycerides 134 <=149 mg/dL [facility] Comment: Interpretive Data Ages < or = [...] on 2018. HDL 34(L) >=40 mg/dL [facility] Comment: Interpretive Data Ages < or = [...] on 2018. LDL, calculated 101 <=129 mg/dL [facility] Comment: Interpretive Data Ages < [...] revised on 2018. Non-HDL Cholesterol 128 mg/dL [facility] Comment: Interpretive Data Ages < [...] last revised on 2018. Chol/HDL ratio 5 [facility] Blood 10/23/2023 11:0 2 PM PERCH MENDER 10/23/2023 11:14 PM PERCH MENDER Narrative [facility] - 10/24/2023 11:06 AM PERCH MENDER This lipid panel was automatically ordered due to a significant change in Troponin. The dietary status of the patient at the collection time should be correlated with the lipid results. us Hayder Vu Jr., MD LAB BLOOD ORDERABLE S Final Result [facility] [place] [address] * eGFR (10/23/2023 11:02 PM PERCH MENDER) eGFR 74 >=60 mL/min/1. 73 m2 [facility] Comment: Interpretive Data Reference Interval Normal [...] reviewed 2021. Blood 10/23/2023 11:0 2 PM PERCH MENDER 10/23/2023 11:14 PM PERCH MENDER Hayder Vu Jr., MD LAB BLOOD ORDERABLE S Final Result Performing Organization Address [facility] Co de Phone Number [facility] [place] [address] * (ABNORMAL) Phosphorus (10/23/2023 11:02 PM PERCH MENDER) Pathologist [facility] Phosphorus, pl 4.6(H) 2.3 - 4.5 mg/dL [facility] Blood 10/23/2023 11:0 2 PM PERCH MENDER 10/23/2023 11:13 PM PERCH MENDER Hayder Vu Jr., MD LAB BLOOD ORDERABLE S Final Result Performing Organization Address [facility] de Phone Number [facility] [place] [address] * Magnesium (10/23/2023 11:02 PM PERCH MENDER) [facility] Magnesium 2.0 1.4 - 2.5 mg/dL [facility] Blood 10/23/2023 11:0 2 PM PERCH MENDER 10/23/2023 11:13 PM PERCH MENDER Hayder Vu Jr., MD LAB BLOOD ORDERABLE S Final Result Performing Organization Address [facility] de Phone Number [facility] [place] [address] * (ABNORMAL) Comprehensive metabolic panel (10/23/2023 11:02 PM PERCH MENDER) [facility] Sodium 137 135 - 145 mmol/L [facility] Potassium, pl 4.1 3.3 - 4.9 mmol/L [facility] Chloride 102 97 - 110 mmol/L [facility] CO2 23 22 - 32 mmol/L [facility] Anion gap 12 2 - 15 mmol/L [facility] BUN 12 6 - 25 mg/dL [facility] Creatinine 1.07 0.80 - 1.30 mg/dL [facility] Glucose 245(H) 70 - 199 mg/dL [facility] 2022. Calcium 8.3(L) 8.5 - 10.3 mg/dL [facility] Bilirubin, total 0.6 0.1 - 1.2 mg/dL [facility] Protein, pl 5.9(L) 6.5 - 8.5 g/dL [facility] Albumin 2.6(L) 3.5 - 5.0 g/dL [facility] Alk phos 91 40 - 130 Units/L [facility] ALT 88(H) 7 - 55 Units/L [facility] AST 83(H) 10 - 50 Units/L [facility] Blood 10/23/2023 11:0 2 PM PERCH MENDER 10/23/2023 11:13 PM PERCH MENDER us Hayder Vu Jr., MD LAB BLOOD ORDERABLE S Final Result [facility] [place] [address] * (ABNORMAL) aPTT (10/23/2023 11:02 PM PERCH MENDER) aPTT 25(L) 28 - 38 sec [facility] Comment: Interpretive Data Heparin therapeutic range: 66.0 - 100.0 seconds. Range based on correlation with therapeutic heparin activity range of 0.3 - 0.7 Units/mL. Current interpretive data was last revised on 2023. Blood 10/23/2023 11:0 2 PM PERCH MENDER 10/23/2023 11:58 PM PERCH MENDER Oneyda Foley NP LAB BLOOD ORDERABLES Final Res ult Performing Organization Address [facility] de Phone Number [facility] [place] [address] * (ABNORMAL) Protime-INR (10/23/2023 11:02 PM PERCH MENDER) PT 13.9(H) 10.3 - 13.7 sec [facility] INR 1.22(H) 0.90 - 1.20 [facility] Comment: Interpretive data Oral anticoagulant therapeutic ranges: Venous thromboembolism prophylaxis or treatment: 2.0-3.0 CARDIOLOGY Standard range: 2.0-3.0 High-intensity range: 2.5-3.5 Refer to indication-specific guidelines for appropriate target ranges for prosthetic heart valve replacement. Current interpretive data was last revised on 2019. Blood 10/23/2023 11:0 2 PM PERCH MENDER 10/23/2023 11:58 PM PERCH MENDER Oneyda Foley NP LAB BLOOD ORDERABLES Final Res ult Performing Organization Address [facility] Co de Phone Number [facility] [place] [address] * (ABNORMAL) POC Blood Gas and Chemistries, Arterial - (10/23/2023 10:39 PM PERCH MENDER) pH, Art POC 7.37 7.35 - 7.45 [facility] pCO2, Art POC 38 35 - 45 mmHg [facility] pO2, Art POC 137(H) 83 - 108 mmHg [facility] Na, POC 137 135 - 145 mmol/L [facility] K POC 4.0 3.3 - 4.9 mmol/L [facility] Comment: Interpretive Data This method is not able to assess for hemolysis, which may falsely increase potassium concentrations. If further testing is needed to evaluate this result, consider in-laboratory plasma potassium. Current Interpretive Data was last revised on 2022. Cl, POC 107 97 - 110 mmol/L [facility] Ionized Ca, POC 4.58 4.50 - 5.10 mg/dL [facility] Glucose, POC 247(H) 70 - 199 mg/dL [facility] Lactate, POC 4.6(C) 0.7 - 2.2 mmol/L [facility] SO2 (crys) arterial 100(H) 90 - 95 % [facility] Base excess, POC -3.0 mmol/L [facility] HCO3, Art POC 22 20 - 30 mmol/L [facility] Hct, POC 28.0(L) 41.4 - 51.6 % [facility] O2 Sat, Art POC (Calc) 99 % [facility] Total Hb, POC 9.2(L) 13.8 - 17.2 g/dL [facility] Blood 10/23/2023 10:3 9 PM PERCH MENDER 10/23/2023 10:39 PM PERCH MENDER Hayder Vu Jr., MD LAB POCT ORDERABLES - DEVICE Final Result [facility] [place] [address] * (ABNORMAL) POC Blood Gas and Chemistries, Arterial - (10/23/2023 10:07 PM PERCH MENDER) pH, Art POC 7.12(C) 7.35 - 7.45 [facility] pCO2, Art POC 54(H) 35 - 45 mmHg [facility] pO2, Art POC 287(H) 83 - 108 mmHg [facility] Na, POC 137 135 - 145 mmol/L [facility] K POC 4.0 3.3 - 4.9 mmol/L [facility] Comment: Interpretive Data This method is not able to assess for hemolysis, which may falsely increase potassium concentrations. If further testing is needed to evaluate this result, consider in-laboratory plasma potassium. Current Interpretive Data was last revised on 2022. Cl, POC 104 97 - 110 mmol/L [facility] Ionized Ca, POC 4.67 4.50 - 5.10 mg/dL [facility] Glucose, POC 235(H) 70 - 199 mg/dL [facility] Lactate, POC 7.2(C) 0.7 - 2.2 mmol/L [facility] SO2 (crys) arterial 100(H) 90 - 95 % [facility] Base excess, POC -11.4 mmol/L [facility] HCO3, Art POC 16(L) 20 - 30 mmol/L [facility] Hct, POC 29.0(L) 41.4 - 51.6 % [facility] O2 Sat, Art POC (Calc) 100 % [facility] Total Hb, POC 9.5(L) 13.8 - 17.2 g/dL [facility] Blood 10/23/2023 10:0 7 PM PERCH MENDER 10/23/2023 10:07 PM PERCH MENDER us Pipe Moseley MD LAB POCT ORDERABLES - DEV ICE Final Result [facility] [place] [address] * eGFR (10/23/2023 9:52 PM PERCH MENDER) eGFR 75 >=60 mL/min/1. 73 m2 [facility] Comment: Interpretive Data Reference Interval [...] last reviewed 2021. Blood 10/23/2023 9:52 PM PERCH MENDER 10/23/2023 10:01 PM PERCH MENDER Myke Smith MD PhD LAB BLOOD ORDERA BLES Final Result [facility] [place] [address] * (ABNORMAL) Basic metabolic panel (10/23/2023 9:52 PM PERCH MENDER) Sodium 143 135 - 145 mmol/L [facility] Potassium, pl 3.8 3.3 - 4.9 mmol/L [facility] Chloride 102 97 - 110 mmol/L [facility] CO2 20(L) 22 - 32 mmol/L [facility] Anion gap 21(H) 2 - 15 mmol/L [facility] BUN 12 6 - 25 mg/dL [facility] Creatinine 1.06 0.80 - 1.30 mg/dL [facility] Glucose 208(H) 70 - 199 mg/dL [facility] 2022. Calcium 8.9 8.5 - 10.3 mg/dL [facility] Blood 10/23/2023 9:52 PM PERCH MENDER 10/23/2023 10:01 PM PERCH MENDER Myke Smith MD PhD LAB BLOOD ORDERA BLES Final Result [facility] [place] [address] * (ABNORMAL) CBC without differential (10/23/2023 9:52 PM PERCH MENDER) WBC 23.8(H) 3.8 - 9.9 K/cumm [facility] Hgb 9.8(L) 13.0 - 17.5 g/dL [facility] Hct 32.0(L) 38.9 - 50.3 % [facility] Plt 458(H) 150 - 400 K/cumm [facility] MPV 11.1 9.1 - 12.3 fL [facility] RBC 3.14(L) 4.30 - 5.80 M/cumm [facility] MCV 101.9(H) 81.3 - 96.4 fL [facility] Comment:MCV delta due to manpreet gical procedure. MCH 31.2 27.1 - 33.3 pg [facility] MCHC 30.6(L) 32.3 - 35.7 g/dL [facility] RDW CV 12.5 11.1 - 14.9 % [facility] RDW SD 46.9 35.7 - 48.1 fL [facility] NRBC abs 0.03(H) 0.00 - 0.01 K/cumm [facility] Blood 10/23/2023 9:52 PM PERCH MENDER 10/23/2023 10:02 PM PERCH MENDER Myke Smith MD PhD LAB BLOOD ORDERA BLES Final Result [facility] [place] [address] * (ABNORMAL) POC Blood Gas and Chemistries, Venous - (10/23/2023 9:50 PM PERCH MENDER) pH, Arturo POC 6.99(C) 7.32 - 7.43 [facility] pCO2, arturo POC 84(C) 40 - 50 mmHg [facility] pO2, arturo POC 42 mmHg [facility] Na, POC 139 135 - 145 mmol/L [facility] K POC 5.4(H) 3.3 - 4.9 mmol/L [facility] Comment: Interpretive Data This method is not able to assess for hemolysis, which may falsely increase potassium concentrations. If further testing is needed to evaluate this result, consider in-laboratory plasma potassium. Current Interpretive Data was last revised on 2022. Cl, POC 103 97 - 110 mmol/L [facility] Ionized Ca, POC 4.70 4.50 - 5.10 mg/dL [facility] Glucose, POC 172 70 - 199 mg/dL [facility] Lactate, POC 9.2(C) 0.7 - 2.2 mmol/L [facility] O2 Sat, Arturo POC (Crys) 48 % [facility] Base excess, POC -11.7 mmol/L [facility] Hct, POC 30.0(L) 41.4 - 51.6 % [facility] Total Hb, POC 10.0(L) 13.8 - 17.2 g/dL [facility] O2 Sat, Arturo POC (Calc) 48 % [facility] Blood 10/23/2023 9:50 PM PERCH MENDER 10/23/2023 9:50 PM PERCH MENDER us Pipe Moseley MD LAB POCT ORDERABLES - DEV ICE Final Result [facility] [place] [address] * [place] Fluoroscopy < 1 Hour (10/23/2023 8:45 PM PERCH MENDER) Narrative [facility] - 10/23/2023 8:46 PM PERCH MENDER The images from this study are not interpreted by Radiology. ??Please refer to the physician's procedure / OR operative note. us Hayder Vu Jr., MD IMG FLUOROSCOPY PRO CEDURES Final Result [facility] * eGFR (10/22/2023 9:39 PM PERCH MENDER) eGFR 66 >=60 mL/min/1. 73 m2 [facility] Comment: Interpretive Data Reference Interval Normal [...] last reviewed 2021. Blood 10/22/2023 9:39 PM PERCH MENDER 10/22/2023 10:23 PM PERCH MENDER Jimenez Henao MD LAB BLOOD ORDERABLES Final Result [facility] [place] [address] * (ABNORMAL) Differential, auto (10/22/2023 9:39 PM PERCH MENDER) Neutrophil abs 6.2 1.5 - 6.5 K/cumm [facility] Imm gran abs 0.1 0.0 - 0.1 K/cumm [facility] Lymphocyte abs 1.3 0.8 - 3.3 K/cumm [facility] Monocyte abs 1.1(H) 0.2 - 0.8 K/cumm [facility] Eosinophil abs 0.1 0.0 - 0.5 K/cumm [facility] Basophil abs 0.1 0.0 - 0.1 K/cumm [facility] Neutrophil pct 70.2 % [facility] Comment: Interpretive Data Percent cell count reference ranges are not reported, since discordance with absolute values may lead to misinterpretation of CBC data. Current Interpretive Data was last revised on 2018. Imm gran pct 1.0 % [facility] Comment: Interpretive Data Percent cell count reference ranges are not reported, since discordance with absolute values may lead to misinterpretation of CBC data. Current Interpretive Data was last revised on 2018. Lymphocyte pct 14.4 % [facility] Comment: Interpretive Data Percent cell count reference ranges are not reported, since discordance with absolute values may lead to misinterpretation of CBC data. Current Interpretive Data was last revised on 2018. Monocyte pct 12.4 % [facility] Comment: Interpretive Data Percent cell count reference ranges are not reported, since discordance with absolute values may lead to misinterpretation of CBC data. Current Interpretive Data was last revised on 2018. Eosinophil pct 1.4 % [facility] Comment: Interpretive Data Percent cell count reference ranges are not reported, since discordance with absolute values may lead to misinterpretation of CBC data. Current Interpretive Data was last revised on 2018. Basophil pct 0.6 % [facility] Comment: Interpretive Data Percent cell count reference ranges are not reported, since discordance with absolute values may lead to misinterpretation of CBC data. Current Interpretive Data was last revised on 2018. Blood 10/22/2023 9:39 PM PERCH MENDER 10/22/2023 10:17 PM PERCH MENDER Jimenez Henao MD LAB BLOOD ORDERABLES Final Result Performing Organization Address [facility] Co de Phone Number [facility] [place] [address] * Type and screen (10/22/2023 9:39 PM PERCH MENDER) Jigna, indirect Negative ABO Rh O Positive [facility] Blood 10/22/2023 9:39 PM PERCH MENDER 10/22/2023 10:24 PM PERCH MENDER Narrative [facility] - 10/22/2023 11:35 PM PERCH MENDER Has the patient had Daratumumab or Isatuximab in the past 6 months?->Unknown Jimenez Henao MD LAB BLOOD BANK TEST O RDERABLES Final Result Performing Organization Address [facility] [place] [address] * Protime-INR (10/22/2023 9:39 PM PERCH MENDER) PT 12.6 10.3 - 13.7 sec [facility] INR 1.11 0.90 - 1.20 [facility] Comment: Interpretive data Oral anticoagulant therapeutic ranges: Venous thromboembolism prophylaxis or treatment: 2.0-3.0 CARDIOLOGY Standard range: 2.0-3.0 High-intensity range: 2.5-3.5 Refer to indication-specific guidelines for appropriate target ranges for prosthetic heart valve replacement. Current interpretive data was last revised on 2019. Blood 10/22/2023 9:39 PM PERCH MENDER 10/22/2023 10:26 PM PERCH MENDER us Jimenez Henao MD LAB BLOOD ORDERABLES Final Result Performing Organization Address [facility] Co de Phone Number [facility] [place] [address] * (ABNORMAL) CBC with auto differential (10/22/2023 9:39 PM PERCH MENDER) [facility] WBC 8.8 3.8 - 9.9 K/cumm [facility] Hgb 10.5(L) 13.0 - 17.5 g/dL [facility] Hct 30.7(L) 38.9 - 50.3 % [facility] Plt 378 150 - 400 K/cumm [facility] MPV 10.6 9.1 - 12.3 fL [facility] RBC 3.29(L) 4.30 - 5.80 M/cumm [facility] MCV 93.3 81.3 - 96.4 fL [facility] MCH 31.9 27.1 - 33.3 pg [facility] MCHC 34.2 32.3 - 35.7 g/dL [facility] RDW CV 12.4 11.1 - 14.9 % [facility] RDW SD 43.1 35.7 - 48.1 fL [facility] NRBC abs 0.00 0.00 - 0.01 K/cumm [facility] Blood 10/22/2023 9:39 PM PERCH MENDER 10/22/2023 10:17 PM PERCH MENDER Tia Nolan NP LAB BLOOD ORDERABLES F inal Result [facility] [place] [address] * (ABNORMAL) Basic metabolic panel (10/22/2023 9:39 PM PERCH MENDER) [facility] Sodium 134(L) 135 - 145 mmol/L [facility] Potassium, pl 4.6 3.3 - 4.9 mmol/L [facility] Chloride 99 97 - 110 mmol/L [facility] CO2 30 22 - 32 mmol/L [facility] Anion gap 5 2 - 15 mmol/L [facility] BUN 12 6 - 25 mg/dL [facility] Creatinine 1.17 0.80 - 1.30 mg/dL [facility] Glucose 121 70 - 199 mg/dL [facility] 2022. Calcium 8.8 8.5 - 10.3 mg/dL [facility] Blood 10/22/2023 9:39 PM PERCH MENDER 10/22/2023 10:23 PM PERCH MENDER us Tia Nolan HOST LAB BLOOD ORDERABLES F inal Result [facility] [place] [address] * XR Chest 1 View (10/22/2023 6:24 AM PERCH MENDER) Anatomical Region Laterality Modality Body, Chest N/A Computed Radiogr aphy 10/22/2023 8:41 AM PERCH MENDER Impressions 10/22/2023 12:03 PM PERCH MENDER Comparison is made to CT chest abdomen [...] Maritza Miranda M.D. Narrative 10/22/2023 12:03 PM PERCH MENDER EXAMINATION: 1 view chest radiograph Procedure Note [...] Resul t * eGFR (10/21/2023 10:52 PM PERCH MENDER) eGFR 78 >=60 mL/min/1. 73 m2 [facility] Comment: Interpretive Data Reference Interval Normal [...] Inclusion of Race in Diagnosing Kidney Disease, BURAKSAshli 2020). The CKD-EPI equation should not be used for patients with unstable renal function and has not been validated in children and those over 70. Current interpretive data was last reviewed 2021. Blood 10/21/2023 10:5 2 PM PERCH MENDER 10/21/2023 11:16 PM PERCH MENDER Jimenez Henao MD LAB BLOOD ORDERABLES Final Result [facility] [facility] [place] [address] * (ABNORMAL) Differential, auto (10/21/2023 10:52 PM PERCH MENDER) Neutrophil abs 5.0 1.5 - 6.5 K/cumm [facility] Imm gran abs 0.1 0.0 - 0.1 K/cumm [facility] Lymphocyte abs 1.4 0.8 - 3.3 K/cumm [facility] Monocyte abs 1.1(H) 0.2 - 0.8 K/cumm [facility] Eosinophil abs 0.1 0.0 - 0.5 K/cumm [facility] Basophil abs 0.0 0.0 - 0.1 K/cumm [facility] Neutrophil pct 65.0 % [facility] Comment: Interpretive Data Percent cell count reference ranges are not reported, since discordance with absolute values may lead to misinterpretation of CBC data. Current Interpretive Data was last revised on 2018. Imm gran pct 1.3 % [facility] Comment: Interpretive Data Percent cell count reference ranges are not reported, since discordance with absolute values may lead to misinterpretation of CBC data. Current Interpretive Data was last revised on 2018. Lymphocyte pct 17.8 % [facility] Comment: Interpretive Data Percent cell count reference ranges are not reported, since discordance with absolute values may lead to misinterpretation of CBC data. Current Interpretive Data was last revised on 2018. Monocyte pct 13.6 % [facility] Comment: Interpretive Data Percent cell count reference ranges are not reported, since discordance with absolute values may lead to misinterpretation of CBC data. Current Interpretive Data was last revised on 2018. Eosinophil pct 1.8 % [facility] Comment: Interpretive Data Percent cell count reference ranges are not reported, since discordance with absolute values may lead to misinterpretation of CBC data. Current Interpretive Data was last revised on 2018. Basophil pct 0.5 % [facility] Comment: Interpretive Data Percent cell count reference ranges are not reported, since discordance with absolute values may lead to misinterpretation of CBC data. Current Interpretive Data was last revised on 2018. Blood 10/21/2023 10:5 2 PM PERCH MENDER 10/21/2023 11:17 PM PERCH MENDER us Jimenez Henao MD LAB BLOOD ORDERABLES Final Result [facility] [place] [address] * (ABNORMAL) CBC with auto differential (10/21/2023 10:52 PM PERCH MENDER) WBC 7.7 3.8 - 9.9 K/cumm [facility] Hgb 10.4(L) 13.0 - 17.5 g/dL [facility] Hct 30.1(L) 38.9 - 50.3 % [facility] Plt 350 150 - 400 K/cumm [facility] MPV 10.8 9.1 - 12.3 fL [facility] RBC 3.31(L) 4.30 - 5.80 M/cumm [facility] MCV 90.9 81.3 - 96.4 fL [facility] MCH 31.4 27.1 - 33.3 pg [facility] MCHC 34.6 32.3 - 35.7 g/dL [facility] RDW CV 12.6 11.1 - 14.9 % [facility] RDW SD 41.8 35.7 - 48.1 fL [facility] NRBC abs 0.00 0.00 - 0.01 K/cumm [facility] Blood 10/21/2023 10:5 2 PM PERCH MENDER 10/21/2023 11:17 PM PERCH MENDER Tia Nolan HOST LAB BLOOD ORDERABLES F inal Result Performing Organization Address City/[facility]/ZIP Co de Phone Number [facility] [place] [address] * Basic metabolic panel (10/21/2023 10:52 PM PERCH MENDER) [facility] Sodium 136 135 - 145 mmol/L [facility] Potassium, pl 4.5 3.3 - 4.9 mmol/L [facility] Chloride 99 97 - 110 mmol/L [facility] CO2 27 22 - 32 mmol/L [facility] Anion gap 10 2 - 15 mmol/L [facility] BUN 12 6 - 25 mg/dL [facility] Creatinine 1.02 0.80 - 1.30 mg/dL [facility] Glucose 117 70 - 199 mg/dL [facility] 2022. Calcium 8.7 8.5 - 10.3 mg/dL [facility] Blood 10/21/2023 10:5 2 PM PERCH MENDER 10/21/2023 11:16 PM PERCH MENDER Tia Nolan NP LAB BLOOD ORDERABLES F inal Result Performing Organization Address [facility]/ZIP Co de Phone Number [facility] [place] [address] * eGFR (10/20/2023 9:38 PM PERCH MENDER) eGFR 80 >=60 mL/min/1. 73 m2 [facility] Comment: [...] last reviewed 2021. Blood 10/20/2023 9:38 PM PERCH MENDER 10/20/2023 10:25 PM PERCH MENDER us Jimenez Henao MD LAB BLOOD ORDERABLES Final Result [facility] [place] [address] * (ABNORMAL) Differential, auto (10/20/2023 9:38 PM PERCH MENDER) Neutrophil abs 5.9 1.5 - 6.5 K/cumm [facility] Imm gran abs 0.2(H) 0.0 - 0.1 K/cumm [facility] Lymphocyte abs 1.1 0.8 - 3.3 K/cumm [facility] Monocyte abs 1.1(H) 0.2 - 0.8 K/cumm [facility] Eosinophil abs 0.2 0.0 - 0.5 K/cumm [facility] Basophil abs 0.1 0.0 - 0.1 K/cumm [facility] Neutrophil pct 69.2 % [facility] Comment: Interpretive Data Percent cell count reference ranges are not reported, since discordance with absolute values may lead to misinterpretation of CBC data. Current Interpretive Data was last revised on 2018. Imm gran pct 2.3 % [facility] Comment: Interpretive Data Percent cell count reference ranges are not reported, since discordance with absolute values may lead to misinterpretation of CBC data. Current Interpretive Data was last revised on 2018. Lymphocyte pct 13.2 % [facility] Comment: Interpretive Data Percent cell count reference ranges are not reported, since discordance with absolute values may lead to misinterpretation of CBC data. Current Interpretive Data was last revised on 2018. Monocyte pct 12.9 % [facility] Comment: Interpretive Data Percent cell count reference ranges are not reported, since discordance with absolute values may lead to misinterpretation of CBC data. Current Interpretive Data was last revised on 2018. Eosinophil pct 1.8 % [facility] Comment: Interpretive Data Percent cell count reference ranges are not reported, since discordance with absolute values may lead to misinterpretation of CBC data. Current Interpretive Data was last revised on 2018. Basophil pct 0.6 % [facility] Comment: Interpretive Data Percent cell count reference ranges are not reported, since discordance with absolute values may lead to misinterpretation of CBC data. Current Interpretive Data was last revised on 2018. Blood 10/20/2023 9:38 PM PERCH MENDER 10/20/2023 10:25 PM PERCH MENDER us Jimenez Henao MD LAB BLOOD ORDERABLES Final Result [facility] [place] [address] * (ABNORMAL) CBC with auto differential (10/20/2023 9:38 PM PERCH MENDER) [facility] WBC 8.5 3.8 - 9.9 K/cumm [facility] Hgb 11.0(L) 13.0 - 17.5 g/dL [facility] Comment: Interpretive Data A reference range for this assay has not been established for patients with an unknown legal sex. Please refer to the laboratory test catalog for established sex-specific reference intervals. Current interpretive data was last revised on 2023. Hct 32.7(L) 38.9 - 50.3 % [facility] Comment: Interpretive Data A reference range for this assay has not been established for patients with an unknown legal sex. Please refer to the laboratory test catalog for established sex-specific reference intervals. Current interpretive data was last revised on 2023. Plt 321 150 - 400 K/cumm [facility] MPV 11.0 9.1 - 12.3 fL [facility] RBC 3.50(L) 4.30 - 5.80 M/cumm [facility] Comment: Interpretive Data A reference range for this assay has not been established for patients with an unknown legal sex. Please refer to the laboratory test catalog for established sex-specific reference intervals. Current interpretive data was last revised on 2023. MCV 93.4 81.3 - 96.4 fL [facility] MCH 31.4 27.1 - 33.3 pg [facility] MCHC 33.6 32.3 - 35.7 g/dL [facility] RDW CV 12.5 11.1 - 14.9 % [facility] RDW SD 43.2 35.7 - 48.1 fL [facility] NRBC abs 0.00 0.00 - 0.01 K/cumm [facility] Blood 10/20/2023 9:38 PM PERCH MENDER 10/20/2023 10:25 PM PERCH MENDER us Tia Nolan HOST LAB BLOOD ORDERABLES F inal Result [facility] [place] [address] * (ABNORMAL) Basic metabolic panel (10/20/2023 9:38 PM PERCH MENDER) Pathologist [facility] Sodium 134(L) 135 - 145 mmol/L [facility] Potassium, pl 4.5 3.3 - 4.9 mmol/L [facility] Chloride 97 97 - 110 mmol/L [facility] CO2 27 22 - 32 mmol/L [facility] Anion gap 10 2 - 15 mmol/L [facility] BUN 12 6 - 25 mg/dL [facility] Creatinine 1.00 0.80 - 1.30 mg/dL [facility] Glucose 127 70 - 199 mg/dL [facility] 2022. Calcium 8.9 8.5 - 10.3 mg/dL [facility] Blood 10/20/2023 9:38 PM PERCH MENDER 10/20/2023 10:25 PM PERCH MENDER us Tia Nolan HOST LAB BLOOD ORDERABLES F inal Result [facility] [place] [address] * eGFR (10/19/2023 9:11 PM PERCH MENDER) Pathologist [facility] eGFR 81 >=60 mL/min/1. 73 m2 [facility] Comment: Interpretive Data Reference Interval [...] last reviewed 2021. Blood 10/19/2023 9:11 PM PERCH MENDER 10/19/2023 11:30 PM PERCH MENDER us Jimenez Henao MD LAB BLOOD ORDERABLES Final Result [facility] [place] [address] * (ABNORMAL) Differential, auto (10/19/2023 9:11 PM PERCH MENDER) Neutrophil abs 8.2(H) 1.5 - 6.5 K/cumm [facility] Imm gran abs 0.2(H) 0.0 - 0.1 K/cumm [facility] Lymphocyte abs 0.9 0.8 - 3.3 K/cumm [facility] Monocyte abs 0.8 0.2 - 0.8 K/cumm [facility] Eosinophil abs 0.2 0.0 - 0.5 K/cumm [facility] Basophil abs 0.1 0.0 - 0.1 K/cumm [facility] Neutrophil pct 79.6 % [facility] Comment: Interpretive Data Percent cell count reference ranges are not reported, since discordance with absolute values may lead to misinterpretation of CBC data. Current Interpretive Data was last revised on 2018. Imm gran pct 2.0 % [facility] Comment: Interpretive Data Percent cell count reference ranges are not reported, since discordance with absolute values may lead to misinterpretation of CBC data. Current Interpretive Data was last revised on 2018. Lymphocyte pct 8.3 % [facility] Comment: Interpretive Data Percent cell count reference ranges are not reported, since discordance with absolute values may lead to misinterpretation of CBC data. Current Interpretive Data was last revised on 2018. Monocyte pct 8.0 % [facility] Comment: Interpretive Data Percent cell count reference ranges are not reported, since discordance with absolute values may lead to misinterpretation of CBC data. Current Interpretive Data was last revised on 2018. Eosinophil pct 1.6 % [facility] Comment: Interpretive Data Percent cell count reference ranges are not reported, since discordance with absolute values may lead to misinterpretation of CBC data. Current Interpretive Data was last revised on 2018. Basophil pct 0.5 % [facility] Comment: Interpretive Data Percent cell count reference ranges are not reported, since discordance with absolute values may lead to misinterpretation of CBC data. Current Interpretive Data was last revised on 2018. Blood 10/19/2023 9:11 PM PERCH MENDER 10/19/2023 11:31 PM PERCH MENDER us Jimenez Henao MD LAB BLOOD ORDERABLES Final Result [facility] Department of Laboratories [place], [place] [id number] * (ABNORMAL) CBC with auto differential (10/19/2023 9:11 PM PERCH MENDER) WBC 10.3(H) 3.8 - 9.9 K/cumm [facility] Hgb 11.0(L) 13.0 - 17.5 g/dL [facility] Comment: Interpretive Data A reference range for this assay has not been established for patients with an unknown legal sex. Please refer to the laboratory test catalog for established sex-specific reference intervals. Current interpretive data was last revised on 2023. Hct 31.6(L) 38.9 - 50.3 % [facility] Comment: Interpretive Data A reference range for this assay has not been established for patients with an unknown legal sex. Please refer to the laboratory test catalog for established sex-specific reference intervals. Current interpretive data was last revised on 2023. Plt 281 150 - 400 K/cumm [facility] MPV 11.5 9.1 - 12.3 fL [facility] RBC 3.46(L) 4.30 - 5.80 M/cumm [facility] Comment: Interpretive Data A reference range for this assay has not been established for patients with an unknown legal sex. Please refer to the laboratory test catalog for established sex-specific reference intervals. Current interpretive data was last revised on 2023. MCV 91.3 81.3 - 96.4 fL [facility] MCH 31.8 27.1 - 33.3 pg [facility] MCHC 34.8 32.3 - 35.7 g/dL [facility] RDW CV 12.7 11.1 - 14.9 % [facility] RDW SD 42.2 35.7 - 48.1 fL [facility] NRBC abs 0.00 0.00 - 0.01 K/cumm [facility] Blood 10/19/2023 9:11 PM PERCH MENDER 10/19/2023 11:31 PM PERCH MENDER us Tia Nolan NP LAB BLOOD ORDERABLES F inal Result [facility] [place] [address] * Basic metabolic panel (10/19/2023 9:11 PM PERCH MENDER) [facility] Sodium 135 135 - 145 mmol/L [facility] Potassium, pl 4.3 3.3 - 4.9 mmol/L [facility] Chloride 99 97 - 110 mmol/L [facility] CO2 27 22 - 32 mmol/L [facility] Anion gap 9 2 - 15 mmol/L [facility] BUN 17 6 - 25 mg/dL [facility] Creatinine 0.99 0.80 - 1.30 mg/dL [facility] Glucose 185 70 - 199 mg/dL [facility] 10.3 mg/dL [facility] Blood 10/19/2023 9:11 PM PERCH MENDER 10/19/2023 11:30 PM PERCH MENDER us Tia Nolan HOST LAB BLOOD ORDERABLES F inal Result [facility] [place] [address] * eGFR (10/18/2023 9:29 PM PERCH MENDER) eGFR 87 >=60 mL/min/1. 73 m2 [facility] Comment: Interpretive Data Reference Interval [...] last reviewed 2021. Blood 10/18/2023 9:29 PM PERCH MENDER 10/18/2023 10:27 PM PERCH MENDER Jimenez Henao MD LAB BLOOD ORDERABLES Final Result [facility] [place] [address] * (ABNORMAL) Differential, auto (10/18/2023 9:29 PM PERCH MENDER) Neutrophil abs 13.6(H) 1.5 - 6.5 K/cumm [facility] Imm gran abs 0.2(H) 0.0 - 0.1 K/cumm [facility] Lymphocyte abs 1.4 0.8 - 3.3 K/cumm [facility] Monocyte abs 1.0(H) 0.2 - 0.8 K/cumm [facility] Eosinophil abs 0.2 0.0 - 0.5 K/cumm [facility] Basophil abs 0.0 0.0 - 0.1 K/cumm [facility] Neutrophil pct 82.8 % [facility] Comment: Interpretive Data Percent cell count reference ranges are not reported, since discordance with absolute values may lead to misinterpretation of CBC data. Current Interpretive Data was last revised on 2018. Imm gran pct 1.5 % [facility] Comment: Interpretive Data Percent cell count reference ranges are not reported, since discordance with absolute values may lead to misinterpretation of CBC data. Current Interpretive Data was last revised on 2018. Lymphocyte pct 8.4 % [facility] Comment: Interpretive Data Percent cell count reference ranges are not reported, since discordance with absolute values may lead to misinterpretation of CBC data. Current Interpretive Data was last revised on 2018. Monocyte pct 6.1 % [facility] Comment: Interpretive Data Percent cell count reference ranges are not reported, since discordance with absolute values may lead to misinterpretation of CBC data. Current Interpretive Data was last revised on 2018. Eosinophil pct 1.0 % [facility] Comment: Interpretive Data Percent cell count reference ranges are not reported, since discordance with absolute values may lead to misinterpretation of CBC data. Current Interpretive Data was last revised on 2018. Basophil pct 0.2 % [facility] Comment: Interpretive Data Percent cell count reference ranges are not reported, since discordance with absolute values may lead to misinterpretation of CBC data. Current Interpretive Data was last revised on 2018. Blood 10/18/2023 9:29 PM PERCH MENDER 10/18/2023 10:27 PM PERCH MENDER Jimenez Henao MD LAB BLOOD ORDERABLES Final Result [facility] [place] [address] * (ABNORMAL) CBC with auto differential (10/18/2023 9:29 PM PERCH MENDER) WBC 16.4(H) 3.8 - 9.9 K/cumm [facility] Hgb 11.3(L) 13.0 - 17.5 g/dL [facility] Comment: Interpretive Data A reference range for this assay has not been established for patients with an unknown legal sex. Please refer to the laboratory test catalog for established sex-specific reference intervals. Current interpretive data was last revised on 2023. Hct 32.8(L) 38.9 - 50.3 % [facility] Comment: Interpretive Data A reference range for this assay has not been established for patients with an unknown legal sex. Please refer to the laboratory test catalog for established sex-specific reference intervals. Current interpretive data was last revised on 2023. Plt 286 150 - 400 K/cumm [facility] MPV 11.3 9.1 - 12.3 fL [facility] RBC 3.53(L) 4.30 - 5.80 M/cumm [facility] Comment: Interpretive Data A reference range for this assay has not been established for patients with an unknown legal sex. Please refer to the laboratory test catalog for established sex-specific reference intervals. Current interpretive data was last revised on 2023. MCV 92.9 81.3 - 96.4 fL [facility] MCH 32.0 27.1 - 33.3 pg [facility] MCHC 34.5 32.3 - 35.7 g/dL [facility] RDW CV 12.6 11.1 - 14.9 % [facility] RDW SD 43.3 35.7 - 48.1 fL [facility] NRBC abs 0.00 0.00 - 0.01 K/cumm [facility] Blood 10/18/2023 9:29 PM PERCH MENDER 10/18/2023 10:27 PM PERCH MENDER us Tia Nolan HOST LAB BLOOD ORDERABLES F inal Result [facility] [place] [address] * (ABNORMAL) Basic metabolic panel (10/18/2023 9:29 PM PERCH MENDER) Sodium 132(L) 135 - 145 mmol/L [facility] Potassium, pl 4.0 3.3 - 4.9 mmol/L [facility] Chloride 97 97 - 110 mmol/L [facility] CO2 27 22 - 32 mmol/L [facility] Anion gap 8 2 - 15 mmol/L [facility] BUN 16 6 - 25 mg/dL [facility] Creatinine 0.93 0.80 - 1.30 mg/dL [facility] Glucose 151 70 - 199 mg/dL [facility] 2022. Calcium 8.2(L) 8.5 - 10.3 mg/dL [facility] Blood 10/18/2023 9:29 PM PERCH MENDER 10/18/2023 10:27 PM PERCH MENDER Tia Nolan NP LAB BLOOD ORDERABLES F inal Result [facility] [place] [address] * Dexa Axial Skeleton Bone Density 1 or 2 Site (10/18/2023 12:45 PM PERCH MENDER) Anatomical Region Laterality Modality Body N/A Digital Radiogra phy 10/18/2023 1:29 PM PERCH MENDER Impressions 10/18/2023 2:27 PM PERCH MENDER ?? 1. The bone mineral density of [...] algorithm), available at http://[email or web address].ac.uk/FRAX). Dictated by: Gypsy Shadmani, M.D. The radiology attending physician has personally reviewed this study, and had reviewed and/or edited this written report and agrees with it. Electronically signed by: Nikki Bella MD, Ph.D Narrative 10/18/2023 2:27 PM PERCH MENDER BONE DENSITOMETRY OF THE SPINE AND HIP [...] Fluoroscopy < 1 Hour (10/18/2023 11:27 AM PERCH MENDER) Narrative [facility] - 10/18/2023 11:27 AM PERCH MENDER The images from this study are not interpreted by Radiology. ??Please refer to the physician's procedure / OR operative note. us Gabriel Bennett MD IMG FLUOROSCOPY PROCEDURES Fide l Result [id number] * eGFR (10/17/2023 10:52 PM PERCH MENDER) eGFR 83 >=60 mL/min/1. 73 m2 [facility] Comment: [...] reviewed 2021. Blood 10/17/2023 10:5 2 PM PERCH MENDER 10/17/2023 11:04 PM PERCH MENDER us Jimenez Henao MD LAB BLOOD ORDERABLES Final Result [facility] [place] [address] * (ABNORMAL) Differential, auto (10/17/2023 10:52 PM PERCH MENDER) Neutrophil abs 9.0(H) 1.5 - 6.5 K/cumm [facility] Imm gran abs 0.2(H) 0.0 - 0.1 K/cumm [facility] Lymphocyte abs 1.4 0.8 - 3.3 K/cumm [facility] Monocyte abs 0.8 0.2 - 0.8 K/cumm [facility] Eosinophil abs 0.2 0.0 - 0.5 K/cumm [facility] Basophil abs 0.1 0.0 - 0.1 K/cumm [facility] Neutrophil pct 77.7 % [facility] Comment: Interpretive Data Percent cell count reference ranges are not reported, since discordance with absolute values may lead to misinterpretation of CBC data. Current Interpretive Data was last revised on 2018. Imm gran pct 1.7 % [facility] Comment: Interpretive Data Percent cell count reference ranges are not reported, since discordance with absolute values may lead to misinterpretation of CBC data. Current Interpretive Data was last revised on 2018. Lymphocyte pct 11.7 % [facility] Comment: Interpretive Data Percent cell count reference ranges are not reported, since discordance with absolute values may lead to misinterpretation of CBC data. Current Interpretive Data was last revised on 2018. Monocyte pct 6.8 % [facility] Comment: Interpretive Data Percent cell count reference ranges are not reported, since discordance with absolute values may lead to misinterpretation of CBC data. Current Interpretive Data was last revised on 2018. Eosinophil pct 1.7 % [facility] Comment: Interpretive Data Percent cell count reference ranges are not reported, since discordance with absolute values may lead to misinterpretation of CBC data. Current Interpretive Data was last revised on 2018. Basophil pct 0.4 % [facility] Comment: Interpretive Data Percent cell count reference ranges are not reported, since discordance with absolute values may lead to misinterpretation of CBC data. Current Interpretive Data was last revised on 2018. Blood 10/17/2023 10:5 2 PM PERCH MENDER 10/17/2023 11:04 PM PERCH MENDER us Jimenez Henao MD LAB BLOOD ORDERABLES Final Result Performing Organization Address [facility] de Phone Number [facility] [place] [address] * aPTT (10/17/2023 10:52 PM PERCH MENDER) aPTT 32 28 - 38 sec [facility] Comment: Interpretive Data Heparin therapeutic range: 66.0 - 100.0 seconds. Range based on correlation with therapeutic heparin activity range of 0.3 - 0.7 Units/mL. Current interpretive data was last revised on 2023. Blood 10/17/2023 10:5 2 PM PERCH MENDER 10/17/2023 11:07 PM PERCH MENDER us Jimenez Henao MD LAB BLOOD ORDERABLES Final Result Performing Organization Address [facility] [place] [address] * Protime-INR (10/17/2023 10:52 PM PERCH MENDER) PT 12.6 10.3 - 13.7 sec [facility] INR 1.11 0.90 - 1.20 [facility] Comment: Interpretive data Oral anticoagulant therapeutic ranges: Venous thromboembolism prophylaxis or treatment: 2.0-3.0 CARDIOLOGY Standard range: 2.0-3.0 High-intensity range: 2.5-3.5 Refer to indication-specific guidelines for appropriate target ranges for prosthetic heart valve replacement. Current interpretive data was last revised on 2019. Blood 10/17/2023 10:5 2 PM PERCH MENDER 10/17/2023 11:07 PM PERCH MENDER Jimenez Henao MD LAB BLOOD ORDERABLES Final Result [facility] [place] [address] * (ABNORMAL) CBC with auto differential (10/17/2023 10:52 PM PERCH MENDER) [facility] WBC 11.6(H) 3.8 - 9.9 K/cumm [facility] Hgb 11.7(L) 13.0 - 17.5 g/dL [facility] Comment: Interpretive Data A reference range for this assay has not been established for patients with an unknown legal sex. Please refer to the laboratory test catalog for established sex-specific reference intervals. Current interpretive data was last revised on 2023. Hct 33.3(L) 38.9 - 50.3 % [facility] Comment: Interpretive Data A reference range for this assay has not been established for patients with an unknown legal sex. Please refer to the laboratory test catalog for established sex-specific reference intervals. Current interpretive data was last revised on 2023. Plt 256 150 - 400 K/cumm [facility] MPV 11.0 9.1 - 12.3 fL [facility] RBC 3.68(L) 4.30 - 5.80 M/cumm [facility] Comment: Interpretive Data A reference range for this assay has not been established for patients with an unknown legal sex. Please refer to the laboratory test catalog for established sex-specific reference intervals. Current interpretive data was last revised on 2023. MCV 90.5 81.3 - 96.4 fL [facility] MCH 31.8 27.1 - 33.3 pg [facility] MCHC 35.1 32.3 - 35.7 g/dL [facility] RDW CV 12.5 11.1 - 14.9 % [facility] RDW SD 41.4 35.7 - 48.1 fL [facility] NRBC abs 0.00 0.00 - 0.01 K/cumm [facility] Blood 10/17/2023 10:5 2 PM PERCH MENDER 10/17/2023 11:04 PM PERCH MENDER Tia Nolan HOST LAB BLOOD ORDERABLES F inal Result Performing Organization Address City/[facility]/ZIP Co de Phone Number [facility] Department [place] [address] * (ABNORMAL) Basic metabolic panel (10/17/2023 10:52 PM PERCH MENDER) [facility] Sodium 133(L) 135 - 145 mmol/L [facility] Potassium, pl 3.5 3.3 - 4.9 mmol/L [facility] Chloride 100 97 - 110 mmol/L [facility] CO2 27 22 - 32 mmol/L [facility] Anion gap 6 2 - 15 mmol/L [facility] BUN 12 6 - 25 mg/dL [facility] Creatinine 0.97 0.80 - 1.30 mg/dL [facility] Glucose 186 70 - 199 mg/dL [facility] [...] 2022. Calcium 8.4(L) 8.5 - 10.3 mg/dL [facility] Blood 10/17/2023 10:5 2 PM PERCH MENDER 10/17/2023 11:04 PM PERCH MENDER Tia Nolan NP LAB BLOOD ORDERABLES F inal Result Performing Organization Address [facility]/ZIP Co de Phone Number [facility] [place] [address] * CT Urogram WO 3D (10/16/2023 12:36 PM PERCH MENDER) Anatomical Region Laterality Modality Body N/A Computed Tomogra phy 10/16/2023 1:29 PM PERCH MENDER Impressions 10/16/2023 1:59 PM PERCH MENDER 1. ??Postprocedural changes of percutaneous nephrostomy tube [...] Eric Irene M.D. Narrative 10/16/2023 1:59 PM PERCH MENDER EXAMINATION: CT UROGRAPHY WITH AND WITHOUT CONTRAST [...] IR Percutaneous Nephrostomy Left (10/14/2023 1:38 PM PERCH MENDER) Anatomical Region Laterality Modality Body Left X-Ray Angiograph y 10/14/2023 3:34 PM PERCH MENDER Impressions 10/14/2023 7:38 PM PERCH MENDER Successful left percutaneous nephrostomy. Impacted stone in [...] Kendrick Hughes M.D. Narrative 10/14/2023 7:38 PM PERCH MENDER EXAMINATION: IR PERCUTANEOUS NEPHROSTOMY LEFT HISTORY/INDICATION: ??73-year-old [...] was obtained. Prior to beginning the procedure, Cove Protocol was performed to confirm the patient's [...] was dilated before placing a 10 Fr [place] catheter. ??The retaining loop was formed and [...] was obtained. Prior to beginning the procedure, Cove Protocol was performed to confirm the patient's [...] was dilated before placing a 10 Fr [place] catheter. The retaining loop was formed and [...] (ABNORMAL) Urinalysis, microscopic only (10/14/2023 1:35 PM PERCH MENDER) WBC, ur 0-5 0 - 5 /HPF [facility] RBC, ur >50(A) 0 - 2 /HPF [facility] Epithelial cells, squamous, ur 1-5 0 - 5 /HPF [facility] Bacteria, ur Trace(A) [facility] Mucous, ur Present(A) [facility] Urine 10/14/2023 1:35 PM PERCH MENDER 10/14/2023 3:26 PM PERCH MENDER Marquise Lim MD LAB URINE ORDERABLES Final Result [facility] [place] [address] * Urine culture Urine, kidney aspirate Left (10/14/2023 1:35 PM PERCH MENDER) Report Final Report: No growth [facility] Urine, kidney aspirate (Left) 10/14/2023 1:35 PM PERCH MENDER 10/14/2023 3:52 PM PERCH MENDER Narrative [facility] - 10/16/2023 4:49 PM PERCH MENDER Testing performed by [facility] Microbiology Laboratory ([phone]) Marquise Lim MD LAB MICROBIOLOGY - GENERAL ORDERABLES Final Result Performing Organization Address City/[facility]/ZIP Co de Phone Number [facility] [place] [address] * (ABNORMAL) Urinalysis reflex to microscopic and culture Urine (10/14/2023 1:35 PM PERCH MENDER) Color, ur Red(A) Yellow [facility] Clarity, ur Cloudy(A) Clear [facility] Specific gravity, ur 1.015 1.003 - 1.030 [facility] pH, urine 6.0 [facility] Comment: Interpretive Data ? Urine pH is affected by diet, medications, systemic acid-base disturbances, and renal tubular function. ??pH may affect urinary stone formation. ??For example, urine pH below 6.0 may help reduce the tendency for calcium phosphate stones and pH greater than 6.0 may reduce the tendency for uric acid stone formation. Source: [facility] Current Interpretive Data was last revised on 2017 Protein, ur ql 1+(A) Negative [facility] Glucose, ur ql Negative Negative [facility] Ketones, ur Negative Negative [facility] Bilirubin, ur 1+(A) Negative [facility] Blood, ur 4+(A) Negative [facility] Urobilinogen, ur 0.2 <2.0 mg/dL [facility] Nitrite, ur Negative Negative [facility] Leukocyte esterase, ur 2+(A) Negative [facility] UA reflex comment Reflex to microscopic UA will be performed. [facility] Urine 10/14/2023 1:35 PM PERCH MENDER 10/14/2023 3:26 PM PERCH MENDER Marquise Lim MD LAB MICROBIOLOGY - GENERAL ORDERABLES Final Result [facility] [place] [address] * US Kidney Complete (10/14/2023 7:15 AM PERCH MENDER) Anatomical Region Laterality Modality Kidney N/A Ultrasound 10/14/2023 6:15 PM PERCH MENDER Impressions 10/14/2023 6:15 PM PERCH MENDER 1. ??No hydronephrosis. ??Given patient had obstructive [...] Robert Yeboah M.D. Narrative 10/14/2023 6:15 PM PERCH MENDER EXAMINATION: COMPLETE RENAL SONOGRAM HISTORY: ??Obstructive left [...] Robert Yeboah M.D. us Marquise Lim MD IM US PROCEDURES Final Res ult * eGFR (10/14/2023 6:30 AM PERCH MENDER) eGFR 64 >=60 mL/min/1. 73 m2 [facility] Comment: Interpretive Data Reference Interval Normal [...] last reviewed 2021. Blood 10/14/2023 6:30 AM PERCH MENDER 10/14/2023 7:44 AM PERCH MENDER Marquise Lim MD LAB BLOOD ORDERABLES Final Result [facility] [place] [address] * (ABNORMAL) Differential, auto (10/14/2023 6:30 AM PERCH MENDER) Neutrophil abs 7.4(H) 1.5 - 6.5 K/cumm [facility] Imm gran abs 0.1 0.0 - 0.1 K/cumm [facility] Lymphocyte abs 0.6(L) 0.8 - 3.3 K/cumm [facility] Monocyte abs 1.3(H) 0.2 - 0.8 K/cumm [facility] Eosinophil abs 0.1 0.0 - 0.5 K/cumm [facility] Basophil abs 0.0 0.0 - 0.1 K/cumm [facility] Neutrophil pct 79.0 % [facility] Comment: Interpretive Data Percent cell count reference ranges are not reported, since discordance with absolute values may lead to misinterpretation of CBC data. Current Interpretive Data was last revised on 2018. Imm gran pct 0.6 % [facility] Comment: Interpretive Data Percent cell count reference ranges are not reported, since discordance with absolute values may lead to misinterpretation of CBC data. Current Interpretive Data was last revised on 2018. Lymphocyte pct 6.3 % [facility] Comment: Interpretive Data Percent cell count reference ranges are not reported, since discordance with absolute values may lead to misinterpretation of CBC data. Current Interpretive Data was last revised on 2018. Monocyte pct 13.3 % [facility] Comment: Interpretive Data Percent cell count reference ranges are not reported, since discordance with absolute values may lead to misinterpretation of CBC data. Current Interpretive Data was last revised on 2018. Eosinophil pct 0.5 % [facility] Comment: Interpretive Data Percent cell count reference ranges are not reported, since discordance with absolute values may lead to misinterpretation of CBC data. Current Interpretive Data was last revised on 2018. Basophil pct 0.3 % [facility] Comment: Interpretive Data Percent cell count reference ranges are not reported, since discordance with absolute values may lead to misinterpretation of CBC data. Current Interpretive Data was last revised on 2018. Blood 10/14/2023 6:30 AM PERCH MENDER 10/14/2023 7:20 AM PERCH MENDER Marquise Lim MD LAB BLOOD ORDERABLES Final Result [facility] [place] [address] * (ABNORMAL) Comprehensive metabolic panel (10/14/2023 6:30 AM PERCH MENDER) Sodium 136 135 - 145 mmol/L [facility] Potassium, pl 3.4 3.3 - 4.9 mmol/L [facility] Chloride 101 97 - 110 mmol/L [facility] CO2 24 22 - 32 mmol/L [facility] Anion gap 11 2 - 15 mmol/L [facility] BUN 24 6 - 25 mg/dL [facility] Creatinine 1.20 0.80 - 1.30 mg/dL [facility] Glucose 153 70 - 199 mg/dL [facility] 2022. Calcium 8.5 8.5 - 10.3 mg/dL [facility] Bilirubin, total 0.5 0.1 - 1.2 mg/dL [facility] Protein, pl 5.8(L) 6.5 - 8.5 g/dL [facility] Albumin 2.7(L) 3.5 - 5.0 g/dL [facility] Alk phos 108 40 - 130 Units/L [facility] ALT 67(H) 7 - 55 Units/L [facility] AST 49 10 - 50 Units/L [facility] Blood 10/14/2023 6:30 AM PERCH MENDER 10/14/2023 7:20 AM PERCH MENDER Marquise Lim MD LAB BLOOD ORDERABLES Final Result [facility] [place] [address] * (ABNORMAL) CBC with auto differential (10/14/2023 6:30 AM PERCH MENDER) [facility] WBC 9.4 3.8 - 9.9 K/cumm [facility] Hgb 11.4(L) 13.0 - 17.5 g/dL [facility] Comment: Interpretive Data A reference range for this assay has not been established for patients with an unknown legal sex. Please refer to the laboratory test catalog for established sex-specific reference intervals. Current interpretive data was last revised on 2023. Hct 32.2(L) 38.9 - 50.3 % [facility] Comment: Interpretive Data A reference range for this assay has not been established for patients with an unknown legal sex. Please refer to the laboratory test catalog for established sex-specific reference intervals. Current interpretive data was last revised on 2023. Plt 134(L) 150 - 400 K/cumm [facility] MPV 12.0 9.1 - 12.3 fL [facility] RBC 3.53(L) 4.30 - 5.80 M/cumm [facility] Comment: Interpretive Data A reference range for this assay has not been established for patients with an unknown legal sex. Please refer to the laboratory test catalog for established sex-specific reference intervals. Current interpretive data was last revised on 2023. MCV 91.2 81.3 - 96.4 fL [facility] MCH 32.3 27.1 - 33.3 pg [facility] MCHC 35.4 32.3 - 35.7 g/dL [facility] RDW CV 12.8 11.1 - 14.9 % [facility] RDW SD 42.2 35.7 - 48.1 fL [facility] NRBC abs 0.00 0.00 - 0.01 K/cumm [facility] Blood 10/14/2023 6:30 AM PERCH MENDER 10/14/2023 7:20 AM PERCH MENDER Marquise Lim MD LAB BLOOD ORDERABLES Final Result Performing Organization Address [facility] Co de Phone Number [facility] [place] [address] * Blood culture Blood (10/13/2023 10:59 PM PERCH MENDER) Report Final Report: No growth [facility] Blood 10/13/2023 10:5 9 PM PERCH MENDER 10/14/2023 12:27 AM PERCH MENDER Narrative [facility] ZARAGOZA - 10/18/2023 7:00 AM PERCH MENDER Collection->Peripheral 1. ?Blood cultures are incubated for [...] organism identification may be performed using the Peekigene Gram-Positive Blood Culture Assay. This assay detects microbial DNA in positive blood culture broth via hybridization of target DNA to capture oligonucleotides on a microarray. This assay has been cleared by the [place] Food and Drug Administration and its performance characteristics have been verified by the [facility] Microbiology Laboratory. 5. ?For questions about this culture, contact the Microbiology Laboratory at [phone]. Interpretive data was last revised on 2020. Marquise Lim MD LAB MICROBIOLOGY - GENERAL ORDERABLES Final Result Performing Organization Address [facility] Co de Phone Number [facility] [place] [address] * Blood culture Blood (10/13/2023 11:01 AM PERCH MENDER) Report Final Report: No growth [facility] Blood 10/13/2023 11:0 1 AM PERCH MENDER 10/13/2023 12:16 PM PERCH MENDER Narrative [facility] - 10/18/2023 8:10 AM PERCH MENDER 1. ?Blood cultures are incubated for 4 [...] organism identification may be performed using the Peekigene Gram-Positive Blood Culture Assay. This assay detects microbial DNA in positive blood culture broth via hybridization of target DNA to capture oligonucleotides on a microarray. This assay has been cleared by the [place] Food and Drug Administration and its performance characteristics have been verified by the [facility] Microbiology Laboratory. 5. ?For questions about this culture, contact the Microbiology Laboratory at [phone]. Interpretive data was last revised on 2020. Marquise Lim MD LAB MICROBIOLOGY - GENERAL ORDERABLES Final Result [facility] [place] [address] * [place] Fluoroscopy < 1 Hour (10/13/2023 9:48 AM PERCH MENDER) Anatomical Region Laterality Modality Body N/A X-Ray Angiograph y 10/13/2023 7:06 PM PERCH MENDER Impressions 10/14/2023 1:30 PM PERCH MENDER Unsuccessful attempt at left nephrostomy placement in this patient with a nondilated system. Dictated by: Ana Alfaro M.D. The radiology attending physician has personally reviewed this study, and had reviewed and/or edited this written report and agrees with it. Electronically signed by: Rg Mar M.D. Narrative 10/14/2023 1:30 PM PERCH MENDER EXAMINATION: FL FLUOROSCOPY < 1 HOUR HISTORY/INDICATION: [...] was obtained. Prior to beginning the procedure, Cove Protocol was performed to confirm the patient's [...] was obtained. Prior to beginning the procedure, Cove Protocol was performed to confirm the patient's [...] inal Result * eGFR (10/13/2023 6:50 AM PERCH MENDER) [facility] eGFR >90 >=60 mL/min/1. 73 m2 [facility] Comment: Interpretive Data Reference Interval Normal ?>/= [...] last reviewed 2021. Blood 10/13/2023 6:50 AM PERCH MENDER 10/13/2023 7:55 AM PERCH MENDER us Severo Merlos MD LAB BLOOD ORDERABLES Final R esult [facility] [place] [address] * (ABNORMAL) Differential, auto (10/13/2023 6:50 AM PERCH MENDER) Neutrophil abs 5.8 1.5 - 6.5 K/cumm [facility] Imm gran abs 0.0 0.0 - 0.1 K/cumm [facility] Lymphocyte abs 0.2(L) 0.8 - 3.3 K/cumm [facility] Monocyte abs 0.2 0.2 - 0.8 K/cumm [facility] Eosinophil abs 0.0 0.0 - 0.5 K/cumm [facility] Basophil abs 0.0 0.0 - 0.1 K/cumm [facility] Neutrophil pct 92.8 % [facility] Comment: Interpretive Data Percent cell count reference ranges are not reported, since discordance with absolute values may lead to misinterpretation of CBC data. Current Interpretive Data was last revised on 2018. Imm gran pct 0.5 % [facility] Comment: Interpretive Data Percent cell count reference ranges are not reported, since discordance with absolute values may lead to misinterpretation of CBC data. Current Interpretive Data was last revised on 2018. Lymphocyte pct 2.7 % [facility] Comment: Interpretive Data Percent cell count reference ranges are not reported, since discordance with absolute values may lead to misinterpretation of CBC data. Current Interpretive Data was last revised on 2018. Monocyte pct 3.5 % [facility] Comment: Interpretive Data Percent cell count reference ranges are not reported, since discordance with absolute values may lead to misinterpretation of CBC data. Current Interpretive Data was last revised on 2018. Eosinophil pct 0.2 % [facility] Comment: Interpretive Data Percent cell count reference ranges are not reported, since discordance with absolute values may lead to misinterpretation of CBC data. Current Interpretive Data was last revised on 2018. Basophil pct 0.3 % [facility] Comment: Interpretive Data Percent cell count reference ranges are not reported, since discordance with absolute values may lead to misinterpretation of CBC data. Current Interpretive Data was last revised on 2018. Blood 10/13/2023 6:50 AM PERCH MENDER 10/13/2023 7:55 AM PERCH MENDER us Severo Merlos MD LAB BLOOD ORDERABLES Final R esult [facility] [place] [address] * (ABNORMAL) CBC with auto differential (10/13/2023 6:50 AM PERCH MENDER) WBC 6.2 3.8 - 9.9 K/cumm [facility] Hgb 13.3 13.0 - 17.5 g/dL [facility] Comment: Interpretive Data A reference range for this assay has not been established for patients with an unknown legal sex. Please refer to the laboratory test catalog for established sex-specific reference intervals. Current interpretive data was last revised on 2023. Hct 37.0(L) 38.9 - 50.3 % [facility] Comment: Interpretive Data A reference range for this assay has not been established for patients with an unknown legal sex. Please refer to the laboratory test catalog for established sex-specific reference intervals. Current interpretive data was last revised on 2023. Plt 143(L) 150 - 400 K/cumm [facility] MPV 11.6 9.1 - 12.3 fL [facility] RBC 4.11(L) 4.30 - 5.80 M/cumm [facility] Comment: Interpretive Data A reference range for this assay has not been established for patients with an unknown legal sex. Please refer to the laboratory test catalog for established sex-specific reference intervals. Current interpretive data was last revised on 2023. MCV 90.0 81.3 - 96.4 fL [facility] MCH 32.4 27.1 - 33.3 pg [facility] MCHC 35.9(H) 32.3 - 35.7 g/dL [facility] RDW CV 12.8 11.1 - 14.9 % [facility] RDW SD 41.8 35.7 - 48.1 fL [facility] NRBC abs 0.00 0.00 - 0.01 K/cumm [facility] Blood 10/13/2023 6:50 AM PERCH MENDER 10/13/2023 7:55 AM PERCH MENDER us Severo Merlos MD LAB BLOOD ORDERABLES Final R esult [facility] [place] [address] * (ABNORMAL) Comprehensive metabolic panel (10/13/2023 6:50 AM PERCH MENDER) Sodium 137 135 - 145 mmol/L [facility] Potassium, pl 3.7 3.3 - 4.9 mmol/L [facility] Chloride 101 97 - 110 mmol/L [facility] CO2 26 22 - 32 mmol/L [facility] Anion gap 10 2 - 15 mmol/L [facility] BUN 17 6 - 25 mg/dL [facility] Creatinine 0.82 0.80 - 1.30 mg/dL [facility] Glucose 160 70 - 199 mg/dL [facility] 2022. Calcium 9.1 8.5 - 10.3 mg/dL [facility] Bilirubin, total 0.7 0.1 - 1.2 mg/dL [facility] Protein, pl 6.8 6.5 - 8.5 g/dL [facility] Albumin 3.6 3.5 - 5.0 g/dL [facility] Alk phos 113 40 - 130 Units/L [facility] ALT 68(H) 7 - 55 Units/L [facility] Comment:Reviewed AST 50 10 - 50 Units/L [facility] Blood 10/13/2023 6:50 AM PERCH MENDER 10/13/2023 7:55 AM PERCH MENDER us Severo Merlos MD LAB BLOOD ORDERABLES Final R esult [facility] [place] [address] * [place] Fluoroscopy < 1 Hour (10/13/2023 3:00 AM PERCH MENDER) Narrative [email or web address] - 10/13/2023 10:04 AM PERCH MENDER The images from this study are not interpreted by Radiology. ??Please refer to the physician's procedure / OR operative note. Severo Merlos MD IMG FLUOROSCOPY PROCEDURES F inal Result Performing Organization Address City/[facility]/ZIP Co de Phone Number [email or web address] * MRI Spine Total Complete W WO Contrast (10/12/2023 11:44 PM PERCH MENDER) Anatomical Region Laterality Modality Spine N/A Magnetic Resonan ce 10/13/2023 12:4 6 AM PERCH MENDER Impressions 10/13/2023 11:39 AM PERCH MENDER 1. ??Redemonstrated degenerative disc disease of the [...] Kym Buckley M.D. Narrative 10/13/2023 11:39 AM PERCH MENDER EXAMINATION: 1. Magnetic resonance imaging (MRI) of [...] * Blood culture Blood (10/12/2023 9:38 PM PERCH MENDER) Report Final Report: No growth [facility] Blood 10/12/2023 9:38 PM PERCH MENDER 10/12/2023 9:59 PM PERCH MENDER Narrative [facility] - 10/17/2023 7:00 AM PERCH MENDER Second site Collection->Peripheral 1. ?Blood cultures are [...] organism identification may be performed using the Peekigene Gram-Positive Blood Culture Assay. This assay detects microbial DNA in positive blood culture broth via hybridization of target DNA to capture oligonucleotides on a microarray. This assay has been cleared by the [place] Food and Drug Administration and its performance characteristics have been verified by the [facility]biology Laboratory. 5. ?For questions about this culture, contact the Microbiology Laboratory at [phone]. Interpretive data was last revised on 2020. Amol Hargrove MD LAB MICROBIOLOGY - [facility] ORDERABLES Final Result [facility] [place] [address] * CT Chest Abdomen Pelvis W Contrast (10/12/2023 9:00 PM PERCH MENDER) Anatomical Region Laterality Modality Body N/A Computed Tomogra phy 10/12/2023 9:35 PM PERCH MENDER Impressions 10/13/2023 10:26 AM PERCH MENDER 1. ??Obstructing renal calculus in unchanged position [...] Mich Cabrera M.D. Narrative 10/13/2023 10:26 AM PERCH MENDER EXAMINATION: CT CHEST ABDOMEN PELVIS W CONTRAST [...] (ABNORMAL) Erythrocyte sedimentation rate (10/12/2023 7:50 PM PERCH MENDER) Erythrocyte sedimentation rate 48(H) 1 - 20 mm/hr [facility] Blood 10/12/2023 7:50 PM PERCH MENDER 10/12/2023 8:11 PM PERCH MENDER Rafeal Cowan MD LAB BLOOD ORDERABLES Fin al Result [facility] [place] [address] * (ABNORMAL) CRP (acute phase) (10/12/2023 7:50 PM PERCH MENDER) CRP 210.7(H) <=10.0 mg/L [facility] Blood 10/12/2023 7:50 PM PERCH MENDER 10/12/2023 8:11 PM PERCH MENDER us Rafael Cowan MD LAB BLOOD ORDERABLES Fin al Result [facility] [place] [address] * eGFR (10/12/2023 7:50 PM PERCH MENDER) eGFR 81 >=60 mL/min/1. 73 m2 [facility] Comment: Interpretive Data Reference Interval [...] last reviewed 2021. Blood 10/12/2023 7:50 PM PERCH MENDER 10/12/2023 8:23 PM PERCH MENDER Rafael Cowan MD LAB BLOOD ORDERABLES Fin al Result Performing Organization Address City/[facility] Co de Phone Number [facility] [place] [address] * (ABNORMAL) Urine culture Urine (10/12/2023 7:50 PM PERCH MENDER) Report Final Report: Greater than or equal to 100,000 colonies/mL of Escherichia coli Greater than or equal to 100,000 colonies/mL of Escherichia coli #2 For susceptibility results, refer to accession number [id number] on the urine culture from 10/11/23 (.) [facility] Organism ESCHERICHIA COLI [facility] Organism ESCHERICHIA COLI [facility] Urine 10/12/2023 7:50 PM PERCH MENDER 10/12/2023 9:46 PM PERCH MENDER Narrative [facility] - 10/14/2023 9:24 AM PERCH MENDER Urine culture reflexed based upon urinalysis results. Testing performed by [facility] ([phone]) Rafael Cowan MD LAB MICROBIOLOGY - GENER AL ORDERABLES Final Result Performing Organization Address [facility] de Phone Number LAURA [facility] [place] [address] * (ABNORMAL) Urinalysis, microscopic only (10/12/2023 7:50 PM PERCH MENDER) WBC, ur >50(A) 0 - 5 /HPF [facility] RBC, ur 6-10(A) 0 - 2 /HPF [facility] Bacteria, ur 3+(A) [facility] Culture Reflex Comment Reflex to urine culture will be performed. [facility] Urine 10/12/2023 7:50 PM PERCH MENDER 10/12/2023 8:11 PM PERCH MENDER Rafael Cowan MD LAB URINE ORDERABLES Fin al Result [facility] [place] [address] * (ABNORMAL) Differential, auto (10/12/2023 7:50 PM PERCH MENDER) Neutrophil abs 6.4 1.5 - 6.5 K/cumm [facility] Imm gran abs 0.0 0.0 - 0.1 K/cumm [facility] Lymphocyte abs 0.7(L) 0.8 - 3.3 K/cumm [facility] Monocyte abs 0.9(H) 0.2 - 0.8 K/cumm [facility] Eosinophil abs 0.0 0.0 - 0.5 K/cumm [facility] Basophil abs 0.0 0.0 - 0.1 K/cumm [facility] Neutrophil pct 79.1 % [facility] Comment: Interpretive Data Percent cell count reference ranges are not reported, since discordance with absolute values may lead to misinterpretation of CBC data. Current Interpretive Data was last revised on 2018. Imm gran pct 0.5 % [facility] Comment: Interpretive Data Percent cell count reference ranges are not reported, since discordance with absolute values may lead to misinterpretation of CBC data. Current Interpretive Data was last revised on 2018. Lymphocyte pct 8.4 % [facility] Comment: Interpretive Data Percent cell count reference ranges are not reported, since discordance with absolute values may lead to misinterpretation of CBC data. Current Interpretive Data was last revised on 2018. Monocyte pct 11.4 % [facility] Comment: Interpretive Data Percent cell count reference ranges are not reported, since discordance with absolute values may lead to misinterpretation of CBC data. Current Interpretive Data was last revised on 2018. Eosinophil pct 0.4 % [facility] Comment: Interpretive Data Percent cell count reference ranges are not reported, since discordance with absolute values may lead to misinterpretation of CBC data. Current Interpretive Data was last revised on 2018. Basophil pct 0.2 % [facility] Comment: Interpretive Data Percent cell count reference ranges are not reported, since discordance with absolute values may lead to misinterpretation of CBC data. Current Interpretive Data was last revised on 2018. Blood 10/12/2023 7:50 PM PERCH MENDER 10/12/2023 8:11 PM PERCH MENDER us Rafael Cowan MD LAB BLOOD ORDERABLES Fin al Result [facility] [place] [address] * Blood culture Blood (10/12/2023 7:50 PM PERCH MENDER) Report Final Report: No growth [facility] Blood 10/12/2023 7:50 PM PERCH MENDER 10/12/2023 8:32 PM PERCH MENDER Narrative [facility] - 10/17/2023 7:00 AM PERCH MENDER Collection->Peripheral 1. ?Blood cultures are incubated for [...] organism identification may be performed using the Peekigene Gram-Positive Blood Culture Assay. This assay detects microbial DNA in positive blood culture broth via hybridization of target DNA to capture oligonucleotides on a microarray. This assay has been cleared by the [place] Food and Drug Administration and its performance characteristics have been verified by the [facility]. 5. ?For questions about this culture, contact the Microbiology Laboratory at [phone]. Interpretive data was last revised on 2020. Amol Hargrove MD LAB MICROBIOLOGY - GE NERAL ORDERABLES Final Result Performing Organization Address City/[facility]/ZIP Co de Phone Number [facility] [place] [address] * Lactate (10/12/2023 7:50 PM PERCH MENDER) Lactate 1.1 0.7 - 2.0 mmol/L [facility] Blood 10/12/2023 7:50 PM PERCH MENDER 10/12/2023 8:23 PM PERCH MENDER Amol Hargrove MD LAB BLOOD ORDERABLES Final Result Performing Organization Address [facility] de Phone Number [facility] [place] [address] * (ABNORMAL) Urinalysis reflex to microscopic and culture Urine (10/12/2023 7:50 PM PERCH MENDER) Color, ur Camilo Yellow [facility] Clarity, ur Turbid(A) Clear [facility] Specific gravity, ur 1.025 1.003 - 1.030 [facility] pH, urine 6.0 [facility] Comment: Interpretive Data ? Urine pH is affected by diet, medications, systemic acid-base disturbances, and renal tubular function. ??pH may affect urinary stone formation. ??For example, urine pH below 6.0 may help reduce the tendency for calcium phosphate stones and pH greater than 6.0 may reduce the tendency for uric acid stone formation. Source: [facility] Current Interpretive Data was last revised on 2017 Protein, ur ql 3+(A) Negative [facility] Glucose, ur ql Negative Negative [facility] Ketones, ur Negative Negative [facility] Bilirubin, ur Negative Negative [facility] Blood, ur 2+(A) Negative [facility] Urobilinogen, ur >=8.0(A) <2.0 mg/dL [facility] Nitrite, ur Negative Negative [facility] Leukocyte esterase, ur 3+(A) Negative [facility] UA reflex comment Reflex to microscopic UA will be performed. [facility] Urine 10/12/2023 7:50 PM PERCH MENDER 10/12/2023 8:11 PM PERCH MENDER us Rafael Cowan MD LAB MICROBIOLOGY - GENER AL ORDERABLES Final Result [facility] [place] [address] * (ABNORMAL) CBC with auto differential (10/12/2023 7:50 PM PERCH MENDER) WBC 8.1 3.8 - 9.9 K/cumm [facility] Hgb 13.7 13.0 - 17.5 g/dL [facility] Comment: Interpretive Data A reference range for this assay has not been established for patients with an unknown legal sex. Please refer to the laboratory test catalog for established sex-specific reference intervals. Current interpretive data was last revised on 2023. Hct 38.5(L) 38.9 - 50.3 % [facility] Comment: Interpretive Data A reference range for this assay has not been established for patients with an unknown legal sex. Please refer to the laboratory test catalog for established sex-specific reference intervals. Current interpretive data was last revised on 2023. Plt 155 150 - 400 K/cumm [facility] MPV 11.3 9.1 - 12.3 fL [facility] RBC 4.15(L) 4.30 - 5.80 M/cumm [facility] Comment: Interpretive Data A reference range for this assay has not been established for patients with an unknown legal sex. Please refer to the laboratory test catalog for established sex-specific reference intervals. Current interpretive data was last revised on 2023. MCV 92.8 81.3 - 96.4 fL [facility] MCH 33.0 27.1 - 33.3 pg [facility] MCHC 35.6 32.3 - 35.7 g/dL [facility] RDW CV 12.7 11.1 - 14.9 % [facility] RDW SD 43.3 35.7 - 48.1 fL [facility] NRBC abs 0.00 0.00 - 0.01 K/cumm [facility] Blood 10/12/2023 7:50 PM PERCH MENDER 10/12/2023 8:11 PM PERCH MENDER Rafael Cowan MD LAB BLOOD ORDERABLES Fin al Result [facility] [place] [address] * (ABNORMAL) Basic metabolic panel (10/12/2023 7:50 PM PERCH MENDER) Pathologist [facility] Sodium 133(L) 135 - 145 mmol/L [facility] Potassium, pl 3.8 3.3 - 4.9 mmol/L [facility] Chloride 97 97 - 110 mmol/L [facility] CO2 27 22 - 32 mmol/L [facility] Anion gap 9 2 - 15 mmol/L [facility] BUN 22 6 - 25 mg/dL [facility] Creatinine 0.99 0.80 - 1.30 mg/dL [facility] Glucose 166 70 - 199 mg/dL [facility] [...] 2022. Calcium 9.1 8.5 - 10.3 mg/dL [facility] Blood 10/12/2023 7:50 PM PERCH MENDER 10/12/2023 8:11 PM PERCH MENDER Rafael Cowan MD LAB BLOOD ORDERABLES Fin al Result [facility] [place] [address] documented in this encounter Visit Diagnoses Diagnosis [...] or radiculitis, unspecified Ureteral colic Renal colic Hydronephrosis with urinary [...] 10/25/23 at 0806 Given 10/29/2023 4:49 AM PERCH MENDER 5 mg Given 10/27/2023 9:14 AM PERCH MENDER 5 mg Given 10/25/2023 2:34 PM PERCH MENDER 5 mg dilTIAZem XR (CARDIZEM CD,DILACOR XR) 24 hour capsule 240 mg 240 mg, oral, Daily, First dose on Sun10/30/23 at 0900, Do not crush, chew, cut, dissolve, open or otherwise manipulate tablet/capsule. Given 10/30/2023 9:56 AM PERCH MENDER 240 mg diphenhydrAMINE (BENADRYL) tab/cap 25 mg 25 mg, oral, 4 times daily PRN, itching, Starting on 10/28/23 at 0113 Given 10/28/2023 9:20 AM PERCH MENDER 25 mg Given 10/28/2023 1:19 AM PERCH MENDER 25 mg diphenhydrAMINE-zinc acetate 2-0.1 % cream topical, Daily PRN, itching, Starting on 10/27/23 at 0913, Apply to affected area: IV access site, Indications: Pruritus of SkinIndications:Pruritus of Skin Given 10/27/2023 9:15 PM PERCH MENDER Given 10/27/2023 1:11 PM PERCH MENDER enoxaparin (LOVENOX) syringe 80 mg 80 mg (rounded from 88.6 mg = 1 mg/kg ? 88.6 kg), subcutaneous, Every 12 hours scheduled, First dose (after last modification) on Sun10/26/23 at 1815, Indications: Pulmonary EmbolismIndications:Pulmonary Embolism Given 10/30/2023 9:56 AM PERCH MENDER 80 mg Right Upper Abdomen Given 10/29/2023 9:34 PM PERCH MENDER 80 mg Ri ght Upper Abdomen Given 10/29/2023 9:31 AM PERCH MENDER 80 mg Le ft Upper Abdomen gabapentin (NEURONTIN) capsule 300 mg 300 mg, oral, Every 8 hours scheduled, First dose on Sun10/23/23 at 2345, Indications: PainIndications:Pain Given 10/30/2023 3:39 PM PERCH MENDER 300 mg Given 10/30/2023 5:19 AM PERCH MENDER 300 mg Given 10/29/2023 9:34 PM PERCH MENDER 300 mg HYDROmorphone (DILAUDID) injection 0.5 mg 0.5 mg, intravenous, Administer over 2 Minutes, Every 2 hours PRN, 2nd line for pain, Starting on Sun10/24/23 at 2245, Indications: PainIndications:Pain Given 10/26/2023 6:35 PM PERCH MENDER 0.5 mg Given 10/25/2023 11:36 AM PERCH MENDER 0.5 mg Given 10/25/2023 8:41 AM PERCH MENDER 0.5 mg iothalamate meglumine (CONRAY) 60 % injection As needed, Starting on Sun10/13/23 at 0329, Intra-Op Given 10/13/2023 3:29 AM PERCH MENDER 30 mL irbesartan (AVAPRO) tablet 300 mg 300 mg, oral, Daily, First dose on Sun10/30/23 at 0900 Given 10/30/2023 9:56 AM PERCH MENDER 300 mg levETIRAcetam (KEPPRA) tablet 1,000 mg 1,000 mg, oral, 2 times daily, First dose on Sun10/24/23 at 2100, May mix with 120 mL of enteral nutrition formula or disperse crushed tablets (500 mg tablet strength studied) in 10 mL of water, shake for 5 minutes to dissolve, and administer immediately via enteral feeding tube Given 10/30/2023 9:56 AM PERCH MENDER 1,000 m g Given 10/29/2023 9:34 PM PERCH MENDER 1,000 mg Given 10/29/2023 9:31 AM PERCH MENDER 1,000 mg lidocaine (LIDODERM) 5 % patch 2 patch 2 patch, transdermal, Administer over 12 Hours, Daily, First dose on Sun10/24/23 at 1130, Do not cover the holes on the top side of the patch., Apply to affected area: chest Medication Applied 10/28/2023 1:26 PM PERCH MENDER 2 patches Other (Comment) Medication Applied 10/27/2023 1:11 PM PERCH MENDER 2 patches Back Medication Applied 10/25/2023 11:36 AM PERCH MENDER 2 patches Back ondansetron (ZOFRAN) injection 4 [...] Gastric Disorder,home med Given 10/30/2023 9:56 AM PERCH MENDER 40 mg Given 10/29/2023 9:31 AM PERCH MENDER 40 mg Given 10/28/2023 9:17 AM PERCH MENDER 40 mg polyethylene glycol (MIRALAX) packet 17 g 17 g, oral, 2 times daily, First dose (after last modification) on Sun10/26/23 at 2100, Indications: constipationIndications:constipation Given 10/28/2023 9:16 AM PERCH MENDER 17 g Given 10/27/2023 9:13 AM PERCH MENDER 17 g ramelteon (ROZEREM) tablet 8 mg 8 mg, oral, Nightly PRN, sleep, Starting on 10/28/23 at 2033, Indications: Sleep-Onset InsomniaIndications:Sleep-Onset Insomnia Given 10/29/2023 10:55 PM PERCH MENDER 8 mg Given 10/28/2023 9:31 PM PERCH MENDER 8 mg senna-docusate (PERICOLACE) 8.6-50 mg per tablet 2 tablet 2 tablet, oral, 2 times daily, First dose on Sun10/23/23 at 2345, Hold for diarrhea., Indications: constipationIndications:constipation Given 10/28/2023 9:16 AM PERCH MENDER 2 table ts Given 10/27/2023 9:14 AM PERCH MENDER 2 tablets Given 10/26/2023 9:35 AM PERCH MENDER 2 tablets sodium chloride 0.9% flush 0.5-20 mL 0.5-20 mL, intra-catheter, Every 8 hours scheduled, First dose on Sun10/23/23 at 2345, Flush volume based on line type and size. , Indications: FlushingIndications:Flushing Given 10/30/2023 5:20 AM PERCH MENDER 10 mL Given 10/29/2023 9:35 PM PERCH MENDER 10 mL Given 10/29/2023 2:00 PM PERCH MENDER 10 mL sodium chloride 0.9% flush 0.5-20 mL 0.5-20 mL, intra-catheter, Every 8 hours scheduled, First dose on Sun10/23/23 at 2330, Flush volume based on line type and size. Given 10/30/2023 5:20 AM PERCH MENDER 10 mL Given 10/29/2023 9:35 PM PERCH MENDER 10 mL Given 10/29/2023 2:01 PM PERCH MENDER 10 mL sodium chloride 0.9% irrigation As needed, Starting on 10/13/23 at 0251, Intra-Op Given 10/13/2023 2:51 AM PERCH MENDER 500 mL Surgical Site tamsulosin (FLOMAX) extended release capsule 0.8 mg 0.8 mg, oral, Daily with dinner, First dose on Sun10/24/23 at 1800, Do not crush, chew, cut, dissolve, open or otherwise manipulate tablet/capsule. Given 10/29/2023 6:50 PM PERCH MENDER 0.8 mg Given 10/28/2023 6:11 PM PERCH MENDER 0.8 mg Given 10/27/2023 4:49 PM PERCH MENDER 0.8 mg documented in this encounter Discontinued [...] Recently Administered Medications Times are shown in PERCH MENDER. Scheduled Medication Order 10/28/2023 10/29/2023 10/30/2023 acetaminophen (TYLENOL) tablet 1,000 mg (COMPLETED) 1,000 mg, oral, Every 6 hours scheduled, First dose on Sun10/24/23 at 1200, For 18 doses 0019 (Given - Provider: Ritu Marin RN)0618 (Given - Provider: Ritu Marin RN)1156 (Given - Provider: Porsha Lepe, NARENDRA)1811 (Given - Provider: Erick Melchor RN) ceFAZolin (ANCEF) 100 mg/mL sterile water 2,000 mg (CANCELED) 2,000 mg, intravenous, at 400 mL/hr, Administer over 3 Minutes, Every 8 hours scheduled, First dose on Sun10/28/23 at 1045, Indications: Blood Stream/Endovascular Infection 1103 (Given - Provider: Porsha Lepe RN)2132 (Given - Provider: Suzanne Mendoza, NARENDRA) 0601 (Given - Provider: Suzanne Mendoza, NARENDRA)1359 (Given - Provider: Matilda Gonzales RN)2136 (Given - Provider: Suzanne Mendoza, NARENDRA) 0519 (Given - Provider: Suzanne Mendoza RN) [...] Mendoza RN) 0601 (Given - Provider: Suzanne Mendoza, NARENDRA)1401 (Given - Provider: Matilda Gonzales RN)2134 (Given [...] Porsha Lepe RN)2131 (Given - Provider: Suzanne Mendoza RN) 0931 (Given - Provider: Matilda Gonzales RN)2133 (Given [...] med 0917 (Given - Provider: Porsha Lepe, RN) 930 (Given - Provider: Matilda Gonzales RN) 09 (Given - Provider: Matilda Gonzales, NARENDRA) polyethylene glycol (MIRALAX) packet 17 g 17 g, oral, 2 times daily, First dose (after last modification) on Sun10/26/23 at 2100, Indications: constipation 0916 (Given - Provider: Porsha Lepe RN)2133 (Not Given - Provider: Suzanne Mendoza RN - Reason: Patient/family refused - Comment: soft stools) 929 (Not Given - Provider: Matilda Gonzales RN [...] Matilda Gonzales RN)2135 (Given - Provider: Suzanne Mendoza, NARENDRA) 0520 (Given - Provider: Suzanne Mendoza RN)1400 [...] 1103 (New Bag - Provider: Porsha Lepe RN)2133 (New Bag - Provider: Suzanne Mendoza RN) 1133 (New Bag - Provider: Porsha Lepe, NARENDRA)2136 (New Bag - Provider: Suzanne Mendoza RN) PRN Medication Order 10/28/2023 10/29/2023 10/30/2023 cyclobenzaprine (FLEXERIL) tablet 5 mg 5 mg, oral, 3 times daily PRN, muscle spasms, Starting on Helene 10/25/23 at 0806 0449 (Given - Provider: Suzanne Mendoza RN)1355 (Return to Cabinet - Provider: Matilda Gonzales RN) diphenhydrAMINE (BENADRYL) [...] [place]) enema 133 mL 1 10/23/2023 multivit copggvtd-inpg-HZ-ca lcium (THERA-M) tablet 1 tablet 1 10/23/2023 [...] 10/0510/13/2023 sodium chloride 0.9% irrigation 2 3 10/18/2023 succinylcholine (ANECTINE) 2 0 mg/mL injection - ADS Override Pull 1 10/23/2023 vancomycin (VANCOCIN) solution 1 10/23/2023 cephalexin (KEFLEX) capsule 500 mg 1 2022 famotidine (PEPCID) injection 20 mg 1 10/18 fentaNYL (SUBLIMAZE) preserv ative free injection 50 mcg 3 10/18/2023 iothalamate meglumine (CONRA Y) 60 % injection 1 10/18/2023 metoclopramide (REGLAN) 5 mg /mL injection [...] 1 10/23/2023 SKIN PREP 1 10/14/2023 [facility] MANAGER TO OR 1 10/14/2023 ASSESS 1 10/13/2023 [...] 10/12/2023 documented in this encounter Care Teams Plate Printer Relationship Specialty Start Date End Date Rl Medina DO [address] [place] [address] PCP - General 08/09/17 05/25/24 documented as of this encounter
--- OUTSIDE RECORDS SUMMARY | 2024-11-05 19:27 | XMS_ITS | Encounter Summary ---
Author Organization [facility] Address [address] [place] [address] Phone Care Team Providers Care Registered Representative Name Role Phone Rl Medina DO Primary Care Provider Reason for Referral * MRI/CAT/PET Scan (Routine) - Closed Specialty Diagnoses / Procedures Referred By Manisha t Referred To Contact Radiology Diagnoses Lumbar spine pain Lumbar radiculopathy Procedures MRI Lumbar Spine WWO Contrast Marcial Vu Jr., MD [address] [place] [address] [address] Phone: tel: fax: [address] [address] Referral ID Status Reason Start Date Expiration Date Visits Re quested Visits Authorized [id number] Closed 09/13/2023 10/12/2024 1 1 R WATER ASSISTANT * Diagnostic Imaging (Routine) - Closed Specialty Diagnoses / Procedures Referred By Contac t Referred To Contact Radiology Diagnoses Lumbar radiculopathy Procedures IR Transforaminal Epidural Injection Lumbar Sacral 1 Level Left Marcial Vu Jr., MD [address] [address] [place] [address] Phone: tel: fax: [facility] [address] [place] [address] Referral ID Status Reason Start Date Expiration Date Visits Re quested Visits Authorized [id number] Closed 09/13/2023 11/04/2023 1 1 R WATER ASSISTANT Reason for Visit * Reason Comments New Patient Encounter Details Date Type Department Care Team (Late st Contact Info) Description 09/13/2023 10:20 AM UNDER WATER ASSISTANT Office Visit [facility] Orthopaedic Surgery [address] [facility] 1st Floor [address] [place] [address] Marcial Vu Jr., MD [address] [facility] [address] [address] Lumbar spine pain (Primary Dx); Lumbar radiculopathy Social History Tobacco Use Types Packs/Day Years Used Date Smoking Tobacco: Former Cigarettes 1 11 0 11/05/1968 - 11/05/1979 Passive Smoke Exposure: Past Smokeless Tobacco: Never Tobacco Cessation:Counseling Given: Not [...] on file 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 UNDER WATER ASSISTANT Gender Identity Not on file Sexual Orientation Not on file 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 Not on file Not on file Not on file documented as of this encounter Last Filed Vital Signs Vital Sign Reading Time Taken Comments Blood Pressure - - Pulse - - Temperature - - Respiratory Rate - - Oxygen Saturation - - Inhaled Oxygen Concentration - - Weight 84.8 kg (187 lb) 09/13/2023 9:46 AM UNDER WATER ASSISTANT Height 170.2 cm (5' 7 ) 09/13/2023 9:46 AM UNDER WATER ASSISTANT Body Mass Index 29.29 09/13/2023 9:46 AM UNDER WATER ASSISTANT documented in this encounter Patient Instructions * Patient Instructions* Galina Franco RN - 09/13/2023 10:20 AM UNDER WATER ASSISTANT Hira Evans, 1950 Thank you for your visit today. Dr. Vu has recommended the following treatment: -Please obtain lumbar spine injection on 09/[address] Jones. If you need to reschedule this appointment, please call [phone], opt. [phone]. -Additional information on the injection is included below -We will send you a Pain Diary via [employer] message. Please complete it after obtaining the injection -Please contact our office two weeks after obtaining the injection with the Pain Diary results. This will help determine what the best treatment options will be moving forward. -Please also obtain MRI Lumbar Spine WWO -Our office will contact you with results of the MRI Please contact Galina Franco RN, BSN at [phone] or Kasey Mari MA, ATC at [phone] send a message through [employer]berry if you have any further questions or concerns. For medical emergencies, please call [phone] Kasey Mari MA, ATC General Administrator to Dr. Marcial Vu Department of Orthopedic Spine Surgery Galina Franco RN, BSN Clinical Nurse Coordinator to Dr. Marcial Vu Department of Orthopedic Spine Surgery Fluoroscopically (X-ray) Guided Injection Instructions You are scheduled for your injection with Dr. Jones on 09/21/23 at 9:20am. LOCATION: [address] [place] [address], [facility] [address], [address] [address] *Please note that the time above is your registration time. If you are more than 15 minutes late, you will be asked to reschedule. Fluoroscopically (X-ray) Guided Spinal Injection Pre-Procedure Instructions About the procedure: A mixture of a cortisone and local anesthetic (numbing medication) will be injected into the space around the nerves (epidural space). The anesthetic typically numbs the area for 1-2 hours, and may provide some immediate relief. The cortisone medication usually takes 3-5 days to start to take effect and up to two weeks to get the full benefit. Should you have any questions regarding your procedure, contact our office at [phone]. Prior to the procedure: Allergies to x-ray contrast dye or local anesthetics: Alert our office if you have any history of allergies to local anesthetics (such as Novocain or lidocaine) or x-ray contrast dye. Certain medications must be stopped prior to receiving a spinal injection. Please review the list below and follow the instructions for stopping that medication. Medication to be stopped (days prior to injection): If you are taking any of the medications listed below, check with your prescribing physician (primary care physician or specialist) about stopping the medication as detailed below. In the event your physician doesn't want medications stopped, contact our office immediately. Aspirin - 5 days (Acetaminophen/Tylenol may be used for pain relief instead if no liver problems) Coumadin (Warfarin) - 5 days INR levels must be ordered and drawn within 24 hour of procedure. This test will be ordered for guidance of your orthopedic condition only. Follow up with your managing provider for guidance regarding management of warfarin dosing. Eliquis (Apixaban) - 3 days NSAIDs - non-steroid anti-inflammatory drugs such as: Motrin, Aleve, Ibuprofen, Meloxicam, Diclofenac, etc. - 5 days (Acetaminophen/Tylenol may be used for pain relief instead if no liver problems) Plavix (Clopidogrel) - 7 days Pradaxa (Dabigatran) - 4 days Xarelto (Rivaroxaban) - 3 days If you are taking any of the following medications, consult with the prescribing physician for directions on stopping prior to your injection: Acenocoumarol Aggregnox, Persantine (Dipyridamole) Arixtra (Fondaparinux) Brilinta (Ticagrelor) Effient (Prasugrel) Fragmin (Dalteparin) Heparin Lovenox (Enoxaparin) Pletal (Cilostazol) Savaysa (Edoxaban) Do NOT stop any other medication (blood pressure meds, diabetes meds, etc.) not listed above. On the day of the procedure: Please arrive 30 minutes prior to your injection time for registration. If you arrive more than 15 minutes past your scheduled injection time, your procedure may need to be rescheduled. Driving: Please consider having someone drive you. The anesthetic may cause temporary numbness. After the procedure: You may resume all medications the day after the procedure, including anti- inflammatories and bloodthinners / anti-coagulants. You will be given written discharge instructions after your procedure. Diabetic patients: Steroid injections, no matter what location, may lead to higher blood glucose (sugar) levels temporarily. Most commonly, the higher levels will return to normal within 1-3 days, though effects may last longer. Rises in blood glucose levels may be more significant in patients withpoorly controlled type 2 diabetes (those with HbA1c levels greater than 8) and those with type I diabetes. Therefore we ask that you follow the additional guidelines below: Check fasting (director of early childhood education prior to first meal of the day) and post-prandial (following meals) blood glucose levels 3 days prior to scheduled injection. Check fasting and post-prandial blood glucose levels for 7 days following your injection. If your blood glucose is greater than 200mg/dL on the day of the scheduled procedure, the proceduremay be rescheduled due to increased risk of complications, per physician's judgment. Contact the physician who manages your diabetes if your blood sugar is significantly elevated (for example, over 100mg/dL higher than your pre- injection level) or if blood sugar levels remain elevated 2 days after receiving the injection, to discuss whether a change in medication dosing is warranted. R WATER ASSISTANT R WATER ASSISTANT R WATER ASSISTANT R WATER ASSISTANT documented in this encounter Progress Notes * Marcial Vu MD - 09/13/2023 10:20 AM CST Images from the original note were not included. New Patient Visit Chief Complaint Left gluteal pain and quadriceps weakness History of Present Illness Hira Evans is a 73 y.o. male who presents to our office today for evaluation of left gluteal pain and quadriceps weakness. These have been present for 1 month. They started on August 13, 2023. Atthat time, he and his were on vacation and took an airplane from [facility]. They dida lot of walking around that time. After the flight, he had severe pain in his left gluteal area that was so bad that he could not get off the plane. Since then, he has had severe pain in his left buttock. He does not have any thigh, leg, or foot pain he has had a few episodes when his left knee has buckled on him because of quadriceps weakness. He was initially disabled due to the severity of the pain, but the pain has slightly improved. He feels that the improvement has plateaued. He previously was confined to a wheelchair right after the injury but now has had to hold onto hwang for support when he walks because his pain is so bad. He has done a muscle relaxer, chiropractor, and PT whichhave given him limited relief. His symptoms are worse with standing and walking. Sitting is okay but still painful. He denies tobacco, drinks alcohol socially, takes occasional THC for his symptoms, and denies drugs. 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 He and his enjoys staying active and walking for exercise. Past Medical History He has a past medical history of Allergic rhinitis, Arthritis, Cancer ([facility]) ([facility]) (prostate andmelonomia), Gastric reflux, GERD (gastroesophageal reflux disease), History of melanoma, Hypertension, Kidney stone, Personal history of prostate cancer, Pneumonia, and Seasonal allergies. He has no past medical history of Acute respiratory failure requiring reintubation ([facility]) ([facility]),Awareness under anesthesia, Delayed emergence from general anesthesia, Hard to intubate, Hematoma, Malignant hyperthermia, Motion sickness, Pneumothorax, PONV (postoperative nausea and vomiting), Postoperative delirium, Pseudocholinesterase deficiency, Sleep apnea, or Spinal headache. Past Surgical History He has a past surgical history that includes Prostatectomy (2008); Melanoma Resection (Right, 2005); Joint replacement (Right, 2013); Revision total knee arthroplasty (Right, 09/30/2019); Replacementtotal knee (Left, 10/17/2021); and Vasectomy (30 years ago). Medications He has a current medication list which includes the following prescription(s): acyclovir, cetirizine, cholecalciferol, coenzyme q10, cyclobenzaprine, dilt-xr, fish,bora,flax oils-om3,6,9no1, hydrocodone-acetaminophen, irbesartan, loratadine, meloxicam, mounjaro, mounjaro, omeprazole, peg 400-hypromellose- glycerin, sildenafil (pulm.hypertension), cephalexin, cephalexin, polyethylene glycol, and solifenacin. Drug Allergies He has No Known Allergies. Social History He reports that he quit smoking about 43 years ago. His smoking use included cigarettes. He startedsmoking about 54 years ago. He smoked an average of 1 pack per day. He has been exposed to tobacco smoke. He has never used smokeless tobacco. He reports that he does not use drugs. Family History His family history includes Alcohol abuse in his father; Cancer in his father and another family member; Heart disease in his mother and another family member; Lung disease in his mother. Physical Examination Ht 170.2 cm (5' 7 ) Wt 84.8 kg (187 lb) BMI 29.29 kg/m?? Body mass index is 29.29 kg/m??. Hira is pleasant, well-developed, well nourished male in no acute distress. He walks with a slow gait favoring the left side. Lumbar spine range of motion is limited by pain. Reflexes are 2+ symmetric and intact throughout bilateral lower extremities. No clonus is appreciated. Left straight leg raise reproduces his left gluteal pain. Sensation: L2-S1: SILT and equal in all dermatomes bilaterally Motor: Muscle Strength Left Right Iliopsoas 5/5 5/5 Quadriceps 4/5 5/5 Hamstrings 5/5 5/5 Tibialis anterior 5/5 5/5 Extensor hallicus longus 4/5 5/5 Gastrocsoleus complex 5/5 5/5 BLE: Warm and well-perfused distally. PROMIS Scores 12/08/2019 01/14/2020 08/09/2021 11/08/2021 02/07/2022 09/13/2023 PROMIS Mobility V1.2 39 40.7 40.7 41.4 46.2 Pain Interference 56 56 56 59.1 48.5 66.9 Physical Function V2.0 41.2 39.8 38.6 36.4 48.5 28.6 Anxiety V1.0 51.2 51.2 51.2 54.9 49 60.5 Depression 49.9 49.9 43.3 51.2 48.1 48.1 Review of Plain Radiographs/Studies My independent interpretation of the patient's imaging studies is as follows: Plain films of the lumbar spine obtained today and reviewed by me show diffuse lumbar spondylosis. There is disc space narrowing at L5-S1. MRI of the lumbar spine from an outside facility obtained on August 30, 2023 reviewed by me today shows degenerative changes of the L2-L3, L3-L4, L4-L5, and L5-S1 discs. There is a left paracentral and far lateral L4-L5 disc protrusion as well as a cranially extruded fragment which causes severe lateral recess, foraminal, and extraforaminal stenosis on the left at L4-L5 and compression of the left L5 traversing nerve and the left L4 exiting nerve at this level. Radiologist interpretation of the study recommends an MRI with and without contrast to further evaluate the extruded fragment. Impression/Diagnosis The patient is a 73 y.o. male with left severe gluteal pain and quadriceps weakness secondary to what appears to be an L4-L5 disc herniation which includes a paracentral and far lateral component as well as a cranially extruded fragment causing severe compression of the left L4 and L5 nerves in theextraforaminal, foraminal, zones and lateral recess. His symptoms have been present for 4 weeks. Treatment Plan I discussed with the patient my impression, the imaging findings, and treatment plan in detail witha focus on the etiology, natural history, and management of his symptoms. We discussed his treatment options both nonoperative and surgical. We will obtain an MRI of the lumbar spine with and withoutcontrast per the radiologist recommendations to better evaluate what appears to be a extruded fragment. After discussing treatment options, they would like to proceed with a left L4-L5 transforaminalESI for diagnostic and potentially therapeutic purposes. If nonoperative options fail to give him significant relief in his symptoms, he may benefit from surgery. We discussed the potential for a deco mpression/diskectomy versus an L4-L5 MIS TLIF. We discussed the risks, benefits, and alternatives to each. We will see how he responds to the injection and follow up the results of the MRI and discuss next steps. All the patient's questions were answered. They are understanding and in agreement with this plan. Marcial Vu MD [employer] Principal Solution Specialist Department of Orthopaedic Surgery Division of Spine Surgery [facility] [place] Physician/Ophthalmologist done by [employer]; therefore, variances and inaccuracies may occur. I reviewed the patient problem list pertinent to the visit today, but the entire patient problem list was not reviewed today. Total time spent on this patient visit today was 45 minutes dedicated to chart review, independent imaging review, patient evaluation, examination, counseling and education, and coordination of care. R WATER ASSISTANT documented in this encounter Plan of Treatment Not on file documented as of this encounter Results * MRI Lumbar Spine WWO Contrast (10/01/2023 3:29 PM UNDER WATER ASSISTANT) Anatomical Region Laterality Modality Spine N/A Magnetic Resonan ce 10/01/2023 4:11 PM UNDER WATER ASSISTANT Impressions 10/01/2023 4:11 PM UNDER WATER ASSISTANT Moderate degenerative changes of the lumbar spine, worse at L4-L5, as described in detail above. ??A left lateral disc extrusion is present at L4-L5. ??Prominent contrast enhancement is also identified within the left neural foramen which is likely secondary to inflammation. Severe left lateral recess stenosis is also visible. ??Given the findings at L4-L5, the exiting left L4 and traversing left L5 nerve roots are likely affected. Electronically signed by: Zac Mcgarry M.D. Narrative 10/01/2023 4:11 PM UNDER WATER ASSISTANT EXAMINATION: Magnetic resonance imaging (MRI) of the lumbar spine without and with contrast HISTORY: Patient is a 73-year-old male who is presenting with low back pain. TECHNIQUE: Multiplanar multi-weighted MRI of the lumbar spine was performed without and with intravenous contrast using the standard protocol. Contrast information: 16 mL Gadoterate Meglumine COMPARISON: MRI of the lumbar spine performed on 08/30/2023. FINDINGS: Mild retrolisthesis of L4 upon L5 and L5 upon S1 is noted. Scattered osseous hemangiomas are seen throughout the lumbar vertebral bodies. Small Schmorl's node is visible within the superior endplate of L3. Prominent traction osteophytes are present at T12-L1, L2-L3, L4-L5, and L5-S1. There are no compression fractures. The conus medullaris terminates at the level of T12-L1. The distal spinal cord signal intensity is normal. Intervertebral disc bulging and desiccation is noted from L2-L3 through L5-S1. ??Vacuum phenomenon seen at L5-S1. Annular fissures are visible at L4-L5 and L5-S1. Limited views of the abdomen and pelvis show no soft tissue abnormality. ??The posterior paraspinal musculature is atrophic. ??The aorta is normal. There is no abnormal contrast enhancement. L1-L2: The disc is normal in configuration. There is mild bilateral facet arthropathy. There is no neuroforaminal stenosis. There is no spinal canal stenosis. L2-L3: Minimal symmetric bulging disc. There is mild bilateral facet arthropathy. There is no neuroforaminal stenosis. There is no spinal canal stenosis. L3-L4: Minimal symmetric bulging disc. There is mild bilateral ligamentum flavum infolding along with moderate bilateral facet arthropathy. There is no neuroforaminal stenosis. There is no spinal canal stenosis. L4-L5: Moderate asymmetric bulging disc directed towards the left with superimposed central disc protrusion and left lateral extrusion with cephalad orientation. There is moderate bilateral ligamentum flavum infolding along with severe bilateral facet arthropathy. There is mild right and moderate left neuroforaminal stenosis. There is moderate right and severe left lateral recess stenosis along with moderate spinal canal stenosis. ??Prominent enhancement is identified within the left foramen at L4-L5. ??Previously sequestered disc fragment at this level is not well appreciated. L5-S1: Moderate asymmetric bulging disc directed towards the right. There is moderate bilateral facet arthropathy. There is severe right and moderate left neuroforaminal stenosis. There is no spinal canal stenosis. Procedure Note Zac Mcgarry MD - 10/01/2023 EXAMINATION: Magnetic resonance imaging (MRI) of the lumbar spine without and with contrast HISTORY: Patient is a 73-year-old male who is presenting with low back pain. TECHNIQUE: Multiplanar multi-weighted MRI of the lumbar spine was performed without and with intravenous contrast using the standard protocol. Contrast information: 16 mL Gadoterate Meglumine COMPARISON: MRI of the lumbar spine performed on 08/30/2023. FINDINGS: Mild retrolisthesis of L4 upon L5 and L5 upon S1 is noted. Scattered osseous hemangiomas are seen throughout the lumbar vertebral bodies. Small Schmorl's node is visible within the superior endplate of L3. Prominent traction osteophytes are present at T12-L1, L2-L3, L4-L5, and L5-S1. There are no compression fractures. The conus medullaris terminates at the level of T12-L1. The distal spinal cord signal intensity is normal. Intervertebral disc bulging and desiccation is noted from L2-L3 through L5-S1. Vacuum phenomenon seen at L5-S1. Annular fissures are visible at L4-L5 and L5-S1. Limited views of the abdomen and pelvis show no soft tissue abnormality. The posterior paraspinal musculature is atrophic. The aorta is normal. There is no abnormal contrast enhancement. L1-L2: The disc is normal in configuration. There is mild bilateral facet arthropathy. There is no neuroforaminal stenosis. There is no spinal canal stenosis. L2-L3: Minimal symmetric bulging disc. There is mild bilateral facet arthropathy. There is no neuroforaminal stenosis. There is no spinal canal stenosis. L3-L4: Minimal symmetric bulging disc. There is mild bilateral ligamentum flavum infolding along with moderate bilateral facet arthropathy. There is no neuroforaminal stenosis. There is no spinal canal stenosis. L4-L5: Moderate asymmetric bulging disc directed towards the left with superimposed central disc protrusion and left lateral extrusion with cephalad orientation. There is moderate bilateral ligamentum flavum infolding along with severe bilateral facet arthropathy. There is mild right and moderate left neuroforaminal stenosis. There is moderate right and severe left lateral recess stenosis along with moderate spinal canal stenosis. Prominent enhancement is identified within the left foramen at L4-L5. Previously sequestered disc fragment at this level is not well appreciated. L5-S1: Moderate asymmetric bulging disc directed towards the right. There is moderate bilateral facet arthropathy. There is severe right and moderate left neuroforaminal stenosis. There is no spinal canal stenosis. IMPRESSION: Moderate degenerative changes of the lumbar [...] affected. Electronically signed by: Zac Mcgarry M.D. Marcial Vu Jr., MD IMG MRI PROCEDURES Final Result * IR Transforaminal Epidural Injection Lumbar Sacral 1 Level Left (09/21/2023 10:03 AM UNDER WATER ASSISTANT) Narrative RAD_PACS[facility] - 09/21/2023 10:03 AM UNDER WATER ASSISTANT The images from this study are not interpreted by Radiology. ??Please refer to the physician's procedure / OR operative note. MD RANDEE Ybarra Jr. IR PROCEDURES F inal Result RAD_PACS[facility] * XR Spine Lumbar 4 or More Views (09/13/2023 9:51 AM UNDER WATER ASSISTANT) Anatomical Region Laterality Modality Spine N/A Computed Radiogr aphy 09/13/2023 11:0 0 AM UNDER WATER ASSISTANT Impressions 09/13/2023 11:55 AM UNDER WATER ASSISTANT 1. 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 Dictated by: John Armendariz MD The radiology attending physician has personally reviewed this study, and had reviewed and/or edited this written report and agrees with it. Electronically signed by: Justin Choi MD Narrative 09/13/2023 11:55 AM UNDER WATER ASSISTANT EXAMINATION: XR SPINE LUMBAR 4 OR MORE [...] this encounter Visit Diagnoses Diagnosis Lumbar spine pain- Primary Lumbar radiculopathy Thoracic or lumbosacral neuritis or radiculitis, unspecified Lumbar spine pain Lumbar radiculopathy Thoracic or lumbosacral neuritis or radiculitis, unspecified Lumbar spine pain Lumbar radiculopathy Thoracic or lumbosacral neuritis or radiculitis, unspecified documented in this encounter Discontinued Medications Medication Sig Discontinue Reason Start Date End Da te Ozempic 0.25 mg or 0.5 mg(2 mg/1.5 mL) pen injector injectionIndications:type 2 diabetes mellitus 0.5 mg Sunday09/21/2022 09/13/2023 mirabegron ER (MYRBETRIQ) 25 mg tablet extended release 24 hrIndications:Bladder Hyperactivity Take 1 tablet (25 mg total) by mouth every morning Therapy completed 07/08/2019 09/13/2023 documented as of this encounter Historical Medications * This list may reflect changes made after this encounter. 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 APPOINTMENT FOR 6 MONTH MED CHECK REQUIRED FOR FUTURE REFILLS 08/28/2023 3 HYDROcodone-acet aminophen (NORCO) 5-325 mg per tablet TAKE ONE TABLET BY MOUTH EVERY SIX HOURS for 4 days 08/14/2023 3 cyclobenzaprine (FLEXERIL) 10 mg tablet Take 1 tablet (10 mg total) by mouth 3 (three) times a day as needed 08/19/2023 3 added in this encounter Care Teams Registered Representative Relationship Specialty Start Date End Date Rl Medina DO [address] [place] [address] PCP - General 08/09/17 05/25/24 documented as of this encounter
--- OUTSIDE RECORDS SUMMARY | 2024-11-05 19:27 | XMS_ITS | Encounter Summary ---
Author Organization [facility] Address [address] [place] [address] Phone Care Team Providers Care Rim Roller Operator Name Role Phone Rl Medina DO Primary Care Provider [phone] Reason for Visit * Reason Comments Test Results MRI F/U Return Patient MRI F/U Encounter Details Date Type Department Care Team (Late st Contact Info) Description 10/08/2023 10:20 AM MINE MOTOR ENGINEER Office Visit [facility] Orthopaedic Surgery [address] [place] [address] Medical Office Building [address] [place] [address] Marcial Vu Jr., MD [facility] [facility] [address] [place] [address] Osteoporosis screening (Primary Dx); Other specified disorders of bone density and structure, multiple sites Social History Tobacco Use Types Packs/Day Years [...] on file 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 MINE MOTOR ENGINEER Gender Identity Not on file Sexual Orientation Not on file 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 Dr. Vu has recommended the following treatment: Surgical Recommendation: L4-5 decompression/diskectomy versus an L4-L5 MIS TLIF Surgery Date(s): 10/23 at [facility], potentially 10/19 at [facility] Prior to surgery you will be scheduled for an appointment for pre operative teaching with Galina and an appointment with the Anesthesia Nurse Practitioner, which will include a medical history assessment and lab work. You will need to contact your asphalt spreader and/or other specialists for surgical clearance if applicable. Their written release is required prior to surgery. Additional Testing Needed: CT lumbar spine robot protocol, Dexa scan Galina will contact you to confirm pre-operative appointments and surgery details. She will also send you a letter with all pre-operative appointments and surgery date/ arrival time. Please let me know if you have any questions. Galina Franco RN, BSN Clinical Nurse Coordinator to Dr. Marcial Vu Department of Orthopedic Spine Surgery Important Phone Numbers: Galina, Nurse Coordinator to Dr. Vu: [phone] FMLA/Leave or Disability Paperwork: Dr. Vu will complete leave paperwork for your surgical date through your post operative restrictions. If paperwork is needed for your employer, please either attach the paperwork to [employer] it to [phone]. MOTOR ENGINEER MOTOR ENGINEER MOTOR ENGINEER documented in this encounter Progress Notes * Marcial Vu MD - 10/08/2023 10:20 AM CST Images from the original note were not included. Established Patient Visit Interim History Hira Evans returns to our office today for follow-up. He had a left L4-L5 transforaminal TONIA byDr. Zavala on 09/21/2023. This took nearly all of his pain away for 1 week but since then he has developed new radiating pain in the left lower extremity in an L4 distribution. He has no right lower extremity symptoms. He has been using a cane to ambulate at home. Of note, his left quadriceps weakness has worsened. Physical Examination Alert and oriented x3. Well-developed, well-nourished. Nonlabored breathing. Sensation: L2-S1: SILT and equal in all dermatomes bilaterally Motor: Muscle Strength Left Right Iliopsoas 5/5 5/5 Quadriceps 2/5 5/5 Hamstrings 5/5 5/5 Tibialis anterior 3/5 5/5 Extensor hallicus longus 4/5 5/5 Gastrocsoleus complex /5 5/5 BLE: Warm and well-perfused distally. PROMIS Scores 01/14/2020 08/09/2021 11/08/2021 02/07/2022 09/13/2023 10/08/2023 PROMIS Mobility V1.2 40.7 40.7 41.4 46.2 Pain Interference 56 56 59.1 48.5 66.9 73.7 Physical Function V2.0 39.8 38.6 36.4 48.5 28.6 26.7 Anxiety V1.0 51.2 51.2 54.9 49 60.5 57.2 Depression 49.9 43.3 51.2 48.1 48.1 46.1 Review of Plain Radiographs/Studies My independent interpretation of the patient's imaging studies is as follows: MRI of the lumbar spine from 10/01/2023 with and without contrast reviewed by me today shows diffuse lumbar disc degeneration. There is what appears to be a left-sided cranially extruded L4-L5 disc herniation with severe foraminal stenosis on the left causing severe compression [...] is severe right-sided L5-S1 neural foraminal stenosis. Impression/Diagnosis 73-year-old male with severe left lower extremity lumbar radiculopathy localizing to L4 and L5 secondary to left L4-L5 disc herniation and spondylosis. He has weakness of the left quadriceps (2/5), left tibialis anterior (3/5) and left EHL (4/5). His MRI shows severe right L5-S1 neural foraminal stenosis; however, he does not have any right lower extremity symptoms. Treatment Plan I discussed his situation with him and reviewed his treatment options with him, given his profound quadriceps weakness and severe pain, would recommend surgery to decompress the neural elements, relieve his pain, and give the weakness the best chance for recovery. I spoke with him and his at length about surgery. I will plan for an open L4-L5 posterior spinal fusion with instrumentation, TLIF from the left side, laminectomy, with autograft, allograft. I would not use BMP in this case due to his cancer history. I need to perform a TLIF in this case as I need to remove the entire left L4-L5 facet joint in order to completely decompress the left L4 and left L5 nerves. We discussed the risks, benefits, and alternatives to a spinal fusion and decompression procedure. The risks include incomplete relief of symptoms, risk of a dural tear requiring dural closure and bedrest, or risk of injury to a nerve root causing pain, numbness, paresthesias, weakness. We discussed the risk of inadvertent malpositioning of instrumentation which could cause a nerve injury that may require additional surgery to change the position of instrumentation. We discussed the risk of pseudarthrosis or adjacent level degeneration and stenosis which may result in recurrent pain and/or deformity and possible need for further surgery. We discussed the risk of iatrogenic spinal deformity.We also discussed the risk of perioperative medical or anesthetic complications including, but not limited to, post-operative delirium, DVT/PE, myocardial infarction, pneumonia, UTI, and . I also let them know that it is possible that his strength does not recover at all after surgery orthat it improves but not back to normal. We are going to get his surgery scheduled urgently given his weakness. All of their questions were answered. They understanding and in agreement. Marcial Vu Jr., MD Assistant Media Planner Department of Orthopaedic Surgery Division of Spine Surgery [facility] [employer] [facility] [place], [place] [employer] Hand done by [employer]; therefore, variances and inaccuracies may occur. I reviewed the patient problem list pertinent to the visit today, but the entire patient problem list was not reviewed today. Total time spent on this patient visit today was 30 minutes dedicated to chart review, independent imaging review, patient evaluation, examination, counseling and education, and coordination of care. MOTOR ENGINEER MOTOR ENGINEER documented in this encounter Plan of Treatment Not on file documented as of this encounter Visit Diagnoses Diagnosis Osteoporosis screening- Primary Special screening for osteoporosis Other specified disorders of bone density and structure, multiple sites documented in this encounter Discontinued Medications Medication Sig Discontinue Reason Start Date End Da te cyclobenzaprine (FLEXERIL) 10 mg tablet Take 1 tablet (10 mg total) by mouth 3 (three) times a day as needed Therapy completed 08/19/2023 10/08/2023 HYDROcodone-acetaminop hen (NORCO) 5-325 mg per tablet TAKE ONE TABLET BY MOUTH EVERY SIX HOURS for 4 days Therapy completed 08/14/2023 10/08/2023 meloxicam (MOBIC) 15 mg tablet TAKE 1 TABLET BY MOUTH ONCE DAILY WITH FOOD . APPOINTMENT FOR 6 MONTH MED CHECK REQUIRED FOR FUTURE REFILLS Therapy completed 08/28/2023 10/08/2023 Mounjaro 7.5 mg/0.5 mL pen injector Therapy completed 06/22/2023 10/08/2023 polyethylene glycol (MIRALAX) 17 gram/dose powderIndications:cons tipation Take 17 g by mouth daily as needed Therapy completed 10/06/2019 10/08/2023 documented as of this encounter Care Teams Rim Roller Operator Relationship Specialty Start Date End Date Rl Medina DO [address] [place] [address] PCP - General 08/09/17 05/25/24 documented as of this encounter
--- OUTSIDE RECORDS SUMMARY | 2024-11-05 19:27 | XMS_ITS | Encounter Summary ---
Author Organization [facility] Healthcare Address [address] [place] [address] Care Team Providers Care Supervisor Prop Making Name Role Phone Rl Medina DO Primary Care Provider [phone] Reason for Referral * Diagnostic Imaging (Routine) - Closed Specialty Diagnoses / Procedures Referred By Contac t Referred To Contact Radiology Diagnoses Lumbar radiculopathy Procedures IR Transforaminal Epidural Injection Lumbar Sacral 1 Level Left Marcial Vu Jr., MD [address] [place] [address] Phone: tel: fax: [place] [phone] [place] [phone] Referral ID Status Reason Start Date Expiration Date Visits Re quested Visits Authorized [id number] Closed 09/13/2023 11/04/2023 1 1 UE PLACER Reason for Visit * Diagnostic Imaging (Routine) - Closed Specialty Diagnoses / Procedures Referred By Contac t Referred To Contact Radiology Diagnoses Lumbar radiculopathy Procedures IR Transforaminal Epidural Injection Lumbar Sacral 1 Level Left Marcial Vu Jr., MD [address] [address] Phone: tel: fax: [facility] [phone] [place] [phone] Referral ID Status Reason Start Date Expiration Date Visits Re quested Visits Authorized [id number] Closed 09/13/2023 11/04/2023 1 1 Encounter Details Date Type Department Care Team (Latest Contact Info) Description 09/21/2023 8:41 AM BISQUE PLACER - 09/21/2023 11:59 PM BISQUE PLACER Hospital Encounter [facility] Radiology [address] [facility] [address] [place] [address] Ryan Jones MD [address] [place] [address] Lumbar radiculopathy Discharge Disposition: Discharge to home [...] on file 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 BISQUE PLACER Gender Identity Not on file Sexual Orientation Not on file 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 Your injection included: Lidocaine (numbing medicine). The numbing medicine usually lasts for 30- 45 minutes. During this time, your leg may feel weak and numb due to the effects of the numbing medicine. If this occurs, it is important to stay safe and do not stand or walk without assistance until the numbing medicine wears off. Do not drive for one hour after the injection. Dexamethasone (steroid medicine for inflammation and pain). The steroid will start working within the next three to five days and can take up to two weeks for the full effect. When you get home: Resume your medicine including any blood thinner you held prior to the injection. Resume your normal diet For soreness, you may place an ice pack once an hour at the injection site for 15-20 minutes. You may shower. To prevent infection, do not take a bath, swim or sit in a Jacuzzi or hot tub for the next two days. Drink plenty of fluids to decrease a chance of a headache associated with steroids. You may resume your physical therapy appointments in 24 hours. Do not exercise for 24 hours, regular day-to-day activities are OK to perform. Diabetic patients: Steroid injections may lead to higher blood glucose (sugar) levels temporarily. Most commonly, the higher levels will return to normal within 1-3 days, though effects may last longer. Rises in blood glucose levels may be more significant in patients with poorly controlled type 2 diabetes (those with HbA1c levels greater than 7) and those with type I diabetes. Check fasting (corrections caseworker prior to first meal of the day) and post-prandial (following meals) blood glucose levels. Contact the physician who manages your diabetes if your blood sugar is significantly elevated (for example, over 100mg/dL higher than your pre- injection level) or if blood sugar levels remain significantly elevated 2 days after receiving the injection, to discuss whether a change in medication dosing is needed. For urgent concerns after hours, call our exchange at [phone]. For all other questions regarding the procedure, please call our office at [phone]. Pain Diary Please fill out the pain diary chart below and call or message via [employer] the medical provider whorequested the injection, Dr. Vu, in two weeks. By how much has your pain improved after your injection? Therapeutic Injection: NOT IMPROVED IMPROVED A LITTLE IMPROVED A LITTLE MORE IMPROVED A LOT NO PAIN Immediately? 0% 20% 50% 80% 100% 6 hours after? 0% 20% 50% 80% 100% 24 hours after? 0% 20% 50% 80% 100% 4 days after? 0% 20% 50% 80% 100% 1 week after? 0% 20% 50% 80% 100% 10 days after? 0% 20% 50% 80% 100% 2 weeks after? 0% 20% 50% 80% 100% UE PLACER documented in this encounter Medications at Time [...] 1 tablet (10 mg total) by mouth corrections caseworker before breakfast 4 cholecalciferol (VITAMIN D-3) 5,000 unit capsuleIndication s:Vitamin D Deficiency Take 1 capsule (5,000 Units total) by mouth every morning 4 coenzyme Q10 100 mg capsule Take 1 capsule (100 mg total) by mouth corrections caseworker before breakfast 4 cyclobenzaprine (FLEXERIL) 10 mg tablet Take 1 tablet (10 mg total) by mouth 3 (three) times a day as needed 08/19/2023 3 DILT-XR 240 mg 24 hr capsuleIndication s:hypertension Take 1 capsule (240 mg total) by mouth 2 (two) times a day 0 05/12/2019 4 fish,bora,flax oils-om3,6,9no1 400-400-400 mg capsuleIndication s:Supplement Take 1 tablet by mouth corrections caseworker before breakfast 4 HYDROcodone-aceta minophen (NORCO) 5-325 [...] documented in this encounter Progress Notes * Ryan Jones MD - 09/21/2023 9:20 AM CST Left L4-5 Transforaminal Epidural Steroid Injection [facility] Department of Orthopedic Surgery Division of Physical Medicine and Rehabilitation Patient name: Hira Evans Date of : 1950 Date of service: 09/21/2023 Hira Evans presents to the fluoroscopy suite for a fluoroscopically guided left L4-5 transforaminal epidural steroid injection for conservative treatment of lumbar radicular pain. After informed consent was obtained, the patient was positioned in the prone position on the fluoroscopy table. Thearea was prepped with chlorhexidine and draped in sterile fashion. Using a 25 gauge 2 inch needle, 1-2 mL of 1% lidocaine was infused subcutaneously to anesthetize the region. Then, a 25 gauge 3.5 inch spinal needle was advanced to the posterior superior transforaminal space and advanced into the epidural space under fluoroscopic guidance. Confirmation into the epidural space was obtained with infusion of 0.5 mL of Omnipaque contrast, which showed epidural flow as well as nerve sheath flow. Then a combination of 2 mL of 1% lidocaine and 20 mg of 10 mg/mL dexamethasone was infused. The patienttolerated the procedure without complications. Pre and post procedure blood pressure were stable. The patient was given verbal as well as written follow-up instructions. A pain diary was given to thepatient with follow-up instructions. At the time of discharge following today's procedure, the patient was able to ambulate at their pre- procedure level and denied ongoing nausea, vomiting, or dizziness. Prior to the start of the procedure, verbal verification by the procedure participant(s) confirmed (as applicable): correct patient identity; correct site/side marked and visible; agreement on the procedure to be done; correct patient positioning; an accurate signed procedure consent form, relevantimages and results correctly labeled and displayed; any safety precautions based on clinical history and/or medication use have been addressed. Fluoroscopic guidance used to assist left L4-5 transforaminal epidural steroid injection. Confirmation of needle placement into the epidural space via the left L4-5 neural foramen was obtained by injecting approximately 0.5 mL of Omnipaque contrast. There was no evidence of vascular uptake or subdural flow noted. I personally performed or was present for the entire procedure above. Ryan Jones MD UE PLACER documented in this encounter Plan of Treatment Not on file documented as of this encounter Procedures Procedure Name Priority Date/Time Associated Diagnosis Comments TRANSFORAMINAL EPIDURAL INJECTION LUMBAR SACRAL 1 LEVEL LEFT Schedule Routine, Read Routine (OP Routine) 09/21/2023 10:03 AM BISQUE PLACER Lumbar radiculopathy documented in this encounter Results * IR Transforaminal Epidural Injection Lumbar Sacral 1 Level Left (09/21/2023 10:03 AM BISQUE PLACER) Narrative RAD_PACS[facility] - 09/21/2023 10:03 AM BISQUE PLACER The images from this study are not interpreted by Radiology. ??Please refer to the physician's procedure / OR operative note. us Marcial Vu Jr., MD IMG IR PROCEDURES F inal Result RAD_PACS[facility] documented in this encounter Visit Diagnoses Diagnosis Lumbar radiculopathy Thoracic or lumbosacral neuritis or radiculitis, unspecified documented in this encounter Administered Medications Inactive Administered Medications - up to 3 most recent administrations Medication Order MAR Action Action Date Dose Rate Site dexAMETHasone (DECADRON) preservative free solution Administer over 2 Minutes, As needed, Starting on Sun09/21/23 at 0843, Intra-Op Given 09/21/2023 8:43 AM BISQUE PLACER 20 mg iohexoL (OMNIPAQUE) 300 mg iodine/mL injection solution As needed, Starting on Sun09/21/23 at 0844, Intra-Op Given 09/21/2023 8:44 AM BISQUE PLACER 1 mL lidocaine PF (XYLOCAINE) 10 mg/mL (1 %) preservative free injection As needed, Starting on Sun09/21/23 at 0843, Intra-Procedure (IR), Indications: Administration of Local AnesthesiaIndications:Administratio n of Local Anesthesia Given 09/21/2023 8:43 AM BISQUE PLACER 6 mL documented in this encounter Care Teams Supervisor Prop Making Relationship Specialty Start Date End Date Rl Medina DO [address] [place] [address] PCP - General 08/09/17 05/25/24 documented as of this encounter
--- OUTSIDE RECORDS SUMMARY | 2024-11-05 19:27 | XMS_ITS | Encounter Summary ---
Author Organization [facility] Address [address] [place] [address] Care Team Providers Care Plant Clerk Name Role Phone Rl Medina DO Primary Care Provider [phone] Reason for Visit * Auth/Cert Specialty Diagnoses / Procedures Referred By Contac t Referred To Contact Diagnoses Ureteral colic Procedures na Referral ID Status Reason Start Date Expiration Date Visits Re quested Visits Authorized [id number] 1 1 Encounter Details Date Type Department Care Team (Late st Contact Info) Description 10/13/2023 2:16 AM WORKERS COMPENSATION CLAIMS ADJUSTER Anesthesia Event [facility] Operating Room [address] [place] [address] Ra Burns MD [address] [place] [address] Carlos Manuel Lehman MD [address] [place] [address] Anesthesia Record Procedure Summary Procedure Name Responsible Anesthesiologist Anesthesia Start Time Anesthesia Stop Time CYSTOSCOPY (Urethra) Ra Burns Cha, MD 10/13/23 0216 10/13/23 0329 Events Date Time Event Comment 10/13/2023 0037 In Preop 0216 An Start 0221 In Room 0222 An Start Data 0228 An Induction The patient was reevaluated immediately before moderate or deep sedation use and before anesthesia induction. 0231 An Intubation 0240 Anesthesia Ready 0244 Proc Start 0244 Incision Start 0304 Proc Fin 0309 An Extubation 0315 an stop data 0317 Out of Room 0326 Handoff to RN I completed my handoff [...] the time of handoff: No value filed. 032 An Stop Meds Name Total lidocaine (cardiac) syringe 2 % 80 mg propofol 160 mg fentaNYL 100 mcg succinylcholine 100 mg phenylephrine 100 mcg/mL 200 mcg ondansetron PF (ZOFRAN) 2 mg/mL injectio n 4 mg dexAMETHasone 4 mg/mL 4 mg famotidine 20 mg LR 400 mL * Agents Name O2% N2O O2 N2O Air Sevoflurane Inspired Sevoflurane * Blood No blood administrations on file. Lines, Drains, and Airways Type Details Placement Removal Peripheral IV Placement Date: 10/12/23; Placement Time: 1953; Catheter Size: 20 G; Orientation: Right; Location: Antecubital; Site Prep: Chlorhexidine; Insertion Attempts: 1; Removal Date: 10/13/23; Removal Time: 09; Removal Reason: Drainage 10/12/231953 by Lynnette Guallpa RN 10/13/23899 by Carey Norman RN ETT Placement Date: 10/13/23; Placement Time: 024 (created via procedure documentation); Mask Ventilation: 0; Technique: Video laryngoscopy; Type: ETT - single; Single Lumen Tube Size: 8 mm; Cuffed: Yes; Laryngoscope: Bennett; Location: Oral; Insertion Attempts: 1; Placement Verification: Auscultation, Capnometry; Removal Date: 10/13/23; Removal Time: 0309 10/13/23 0246 by Conor Quiroz MD 10/13/23 030 by Conor Quiroz MD RETIRED Surgical Site 10/13/23; 0255; Pe nis; 10/24/23; 0800 (no wound present); Removal date unknown/not present on admission 10/13/23 025 by Daniela Kothari RN 10/24/23 0800 by Luis Ruffin, RN Urethral Catheter Placement Date: 10/13/23; Placement Time: 030; Inserted by: Dr. 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 Not on file Not on file Not on file documented as of this encounter OR Notes * Anesthesia Postprocedure Evaluation - Ra Burns MD - 10/13/2023 3:37 AM CST Patient: Hira Evans Procedure Summary Date: 10/13/23 Room / Location: [facility] OR POD 2 ROOM 203 / [facility] OR POD 2 Anesthesia Start: 215 Anesthesia Stop: 328 Procedures: CYSTOSCOPY (Urethra) PYELOGRAM - RETROGRADE (Left: Perineum) Diagnosis: Hydronephrosis with urinary obstruction due to renal calculus (Hydronephrosis with urinary obstruction due to renal calculus [N13.2]) Surgeons: Fredrick Mcneil MD Responsible Provider: Ra Burns MD Anesthesia Type: general ASA Status: 3 - Emergent Anesthesia Type: general Last vitals BP 148/78 Pulse 74 Temp 36.5 ??C (97.7 ??F) (Temporal) Resp 23 SpO2 94% Anesthesia Post Evaluation Patient location during evaluation: PACU Patient participation: complete - patient participated Level of consciousness: follows simple commands Pain management: satisfactory to patient Airway patency: adequate and patent Evidence of recall: no Cardiovascular status: hemodynamically stable and blood pressure returned to baseline Respiratory status: room air Hydration status: euvolemic Pt is: normothermic Nausea/Vomiting status: none No notable events documented. ERS COMPENSATION CLAIMS ADJUSTER * Anesthesia Procedure Notes - Conor Quiroz MD - 10/13/2023 2:46 AM CSTAssociated Order(s): Airway Airway Patient location: OR Urgency: elective Indications for airway management: anesthesia Difficult airway: no Staff: Supervising provider: Ra Burns MD Placed by: Resident: Conor Quiroz MD Emergent airway documentation: Risks and benefits [...] Blade type: Bennett Video blade type: Jimenez Cormack-Lehane (video): grade I - full view of glottis Cuff volume: 10 mL Cuff inflated with: air ETT to teeth: 22 cm Placement verified by: auscultation and CO2 detection Airway secured with: silk tape Number of attempts: 1 ERS COMPENSATION CLAIMS ADJUSTER * Anesthesia Preprocedure Evaluation - Ra Burns MD - 10/13/2023 12:51 AM CST Images from the original note were not included. Anesthesia Evaluation Hira Evans is a 73 y.o. male Procedure(s): CYSTOSCOPY PLACEMENT STENT - URETERAL PYELOGRAM - RETROGRADE Pre-Op Diagnosis Codes: * Hydronephrosis with urinary obstruction due to renal calculus [N13.2] HISTORY Past Medical History Respiratory wheezing negative Patient Active Problem List Diagnosis Date Noted Ureteral colic 10/13/2023 Hydronephrosis with urinary obstruction due to [...] -- Fidelia Perdue MD Current Facility-Administered Medications: sodium chloride 0.9% flush 0.5-20 mL, 0.5-20 mL, intra-catheter, PRN sodium chloride 0.9% infusion, 30 mL/hr, intravenous, Continuous Social History Tobacco Use Smoking Status Former [...] by PERLA Conv) Anesthesia problems Neg Hx Vitals: 10/12/23 2357 10/13/23 0044 10/13/23 0045 BP: 152/80 148/90 148/90 Pulse: 69 73 70 Resp: 24 22 Temp: SpO2: 98% 98% 100% PT: 10/11/2023: 12.6 sec INR: 10/11/2023: 1.11 APTT: 10/11/2023: 33 sec Hgb A1C: No results found for requested labs within last 30 days. CBC RBC: 10/12/2023: 4.15 M/cumm (L) RDW: No results found for requested labs within last 30 days. MCHC: 10/12/2023: 35.6 g/dL MCH: 10/12/2023: 33.0 pg MCV: 10/12/2023: 92.8 fL Hct: 10/12/2023: 38.5 % (L) Hgb: 10/12/2023: 13.7 g/dL WBC: 10/12/2023: 8.1 K/cumm MPV: 10/12/2023: 11.3 fL Platelets: 10/12/2023: 155 K/cumm RDW CV: 10/12/2023: 12.7 % RDW Sd: 10/12/2023: 43.3 fL BMP Glucose: 10/12/2023: 166 mg/dL Calcium: 10/12/2023: 9.1 mg/dL Sodium: 10/12/2023: 133 mmol/L (L) Potassium: 10/12/2023: 3.8 mmol/L CO2: 10/12/2023: 27 mmol/L Chloride: 10/12/2023: 97 mmol/L BUN: 10/12/2023: 22 mg/dL Creatinine: 10/12/2023: 0.99 mg/dL STOP-Bang Total Score: 3 DOS Physical Exam Medical history, medications, and allergies reviewed. Attestation: With today's edits, I endorse the the findings of the H&P dated: 10/12/2023. Airway Exam: Mallampati: II Cervical ROM: FROM Cardiovascular Exam: Rate: regular Rhythm: regular Pulmonary Exam: Wheezing negative Stridor negative EENT Exam: trachea midline Skin Exam: Turgor is normal. Current state: Patient's current state is cooperative. Lines/Drains/Tubes/Devices Lines in situ (PIV): Additional comments: [facility] Anesthesia Plan ASA 3- emergent My patient is approved for the Anesthesia Controlled Medication protocol when under care of a COLD STORAGE SUPERINTENDENT Planned anesthesia: General Team communication plan: oral ET tube Comments: RSI Induction: Induction: intravenous. Postoperative Plan: Postoperative administration opioids intended. No postoperative mechanical ventilation intended. Planned trial extubation. Informed Consent: Discussed plan with resident. Anesthesia [...] and agree to proceed. All questions answered. ERS COMPENSATION CLAIMS ADJUSTER documented in this encounter Plan of Treatment Not on file documented as of this encounter Procedures Procedure Name Priority Date/Time Associated Diagnosis Comments ANESTHESIA INTUBATION Routine 10/13/2023 2:46 AM WORKERS COMPENSATION CLAIMS ADJUSTER documented in this encounter Results * Airway (10/13/2023 2:46 AM WORKERS COMPENSATION CLAIMS ADJUSTER) Narrative Conor Quiroz MD - 10/13/2023 2:46 AM WORKERS COMPENSATION CLAIMS ADJUSTER Conor Quiroz MD ? 10/13/2023 ??2:46 AM Airway Patient location: OR Urgency: elective Indications for airway management: anesthesia Difficult airway: no Staff: Supervising provider: Ra Burns MD Placed by: Resident: Conor Quiroz MD Emergent airway documentation: Risks and benefits [...] Blade type: Bennett Video blade type: Jimenez Cormack-Lehane (video): grade I - full view of glottis Cuff volume: 10 mL Cuff inflated with: air ETT to teeth: 22 cm Placement verified by: auscultation and CO2 detection Airway secured with: silk tape Number of attempts: 1 us Ra Burns MD ANESTHESIA ORDERABLES Final Result documented in this encounter Visit Diagnoses Not on filedocumented in this encounter Administered Medications Inactive Administered Medications - up to 3 most recent administrations Medication Order MAR Action Action Date Dose Rate Site dexAMETHasone (DECADRON) 4 mg/mL injection intravenous, Administer over 2 Minutes, As needed, Starting on 10/13/23 at 0246, Anesthesia Intra-op Given 10/13/2023 2:46 AM WORKERS COMPENSATION CLAIMS ADJUSTER 4 mg famotidine (PEPCID) injection intravenous, Administer over 2 Minutes, As needed, Starting on 10/13/23 at 0150, Anesthesia Intra-op Given 10/13/2023 12:50 AM WORKERS COMPENSATION CLAIMS ADJUSTER 20 mg fentaNYL (SUBLIMAZE) preservative free injection intravenous, As needed, Starting on 10/13/23 at 0228, Anesthesia Intra-op Given 10/13/2023 2:28 AM WORKERS COMPENSATION CLAIMS ADJUSTER 100 mcg Lactated Ringer's (LR) infusion intravenous, Continuous PRN, Starting on 10/13/23 at 0228, Anesthesia Intra-op New Bag 10/13/2023 2:28 AM WORKERS COMPENSATION CLAIMS ADJUSTER lidocaine (cardiac) (XYLOCAINE) preservative free injection intravenous, As needed, Starting on 10/13/23 at 0228, Anesthesia Intra-op, Indications: Ventricular ArrhythmiasIndications:Ventricul ar Arrhythmias Given 10/13/2023 2:28 AM WORKERS COMPENSATION CLAIMS ADJUSTER 80 mg ondansetron (ZOFRAN) injection intravenous, Administer over 2 Minutes, As needed, Starting on 10/13/23 at 0248, Anesthesia Intra-op Given 10/13/2023 2:48 AM WORKERS COMPENSATION CLAIMS ADJUSTER 4 mg phenylephrine (ARIELLE-SYNEPHRINE) 1 mg/10 mL (100 mcg/mL) in sodium chloride 0.9% (premix) intravenous, As needed, Starting on 10/13/23 at 0250, Anesthesia Intra-op Given 10/13/2023 2:56 AM WORKERS COMPENSATION CLAIMS ADJUSTER 100 mcg Given 10/13/2023 2:50 AM WORKERS COMPENSATION CLAIMS ADJUSTER 100 mcg propofoL (DIPRIVAN) 10 mg/mL IV intravenous, As needed, Starting on 10/13/23 at 0229, Anesthesia Intra-op Given 10/13/2023 2:39 AM WORKERS COMPENSATION CLAIMS ADJUSTER 30 mg Given 10/13/2023 2:29 AM WORKERS COMPENSATION CLAIMS ADJUSTER 130 mg succinylcholine (ANECTINE) injection intravenous, As needed, Starting on 10/13/23 at 0229, Anesthesia Intra-op Given 10/13/2023 2:29 AM WORKERS COMPENSATION CLAIMS ADJUSTER 100 mg documented in this encounter Care Teams Plant Clerk Relationship Specialty Start Date End Date Rl Medina DO [address] [place] [address] PCP - General 08/09/17 05/25/24 documented as of this encounter
--- OUTSIDE RECORDS SUMMARY | 2024-11-05 19:27 | XMS_ITS | Encounter Summary ---
Author Organization [facility] Address [address] [place] [address] Care Team Providers Care Fire Extinguisher Installer Name Role Phone Rl Medina DO Primary Care Provider Reason for Referral * MRI/CAT/PET Scan (Routine) - Closed Specialty Diagnoses / Procedures Referred By Manisha t Referred To Contact Radiology Diagnoses Lumbar radiculopathy Procedures CT Lumbar Spine WO Contrast CT Lumbar Spine WO Contrast CT Lumbar Spine WO Contrast CT Lumbar Spine WO Contrast Marcial Vu Jr., MD [address] [facility] [place] [address] Phone: tel: fax: [place] [address] [place] [address] Referral ID Status Reason Start Date Expiration Date Visits Re quested Visits Authorized [id number] Closed 10/04/2023 11/02/2024 1 1 NICS SUPERVISOR Reason for Visit * Auth/Cert Specialty Diagnoses / Procedures Referred By Manisha t Referred To Contact Diagnoses Ureteral colic Procedures na Referral ID Status Reason Start Date Expiration Date Visits Re quested Visits Authorized [id number] 1 1 Encounter Details Date Type Department Care Team (Latest Contact Info) Description 10/11/2023 8:54 AM AVIONICS SUPERVISOR - 10/11/2023 11:59 PM AVIONICS SUPERVISOR Hospital Encounter [facility] [address] [place] [id number] Marcial Vu Jr., MD [address] [facility] [address] [place] [address] Lumbar radiculopathy Discharge Disposition: Discharge to home [...] on file 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 AVIONICS SUPERVISOR Gender Identity Not on file Sexual Orientation Not on file 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 Not on file Not on file documented as of this encounter Medications at Time of Discharge acyclovir (ZOVIRAX) 400 mg tabletIndications: Chronic Suppression Take 1 tablet (400 mg total) by mouth 2 (two) times a day 3 06/08/2019 12/10/19 24 cephalexin (KEFLEX) 500 mg capsule Take 1 capsule (500 mg total) by mouth daily as needed (30 minutes prior to dental appt) When pt has procedures gets pre antibiotic r/t history knee replacements 10/09/2022 12/12/19 24 cetirizine (ZyrTEC) 10 mg tabletIndications: Allergic Rhinitis Take 1 tablet (10 mg total) by mouth college scouting coordinator before breakfast 11/29/19 24 cholecalciferol (VITAMIN D-3) 5,000 unit capsuleIndications :Vitamin D Deficiency Take 1 capsule (5,000 Units total) by mouth every morning 12/10/19 24 coenzyme Q10 100 mg capsule Take 1 capsule (100 mg total) by mouth college scouting coordinator before breakfast 11/29/19 24 DILT-XR 240 mg 24 hr capsuleIndications :hypertension Take 1 capsule (240 mg total) by mouth 2 (two) times a day 0 05/12/2019 12/10/19 24 fish,bora,flax oils-om3,6,9no1 400-400-400 mg capsuleIndications :Supplement Take 1 tablet by mouth college scouting coordinator before breakfast 11/16/19 24 irbesartan (AVAPRO) 300 mg tabletIndications: hypertension Take 1 tablet (300 mg total) by mouth every morning 08/10/2021 11/16/19 24 Mounjaro 10 mg/0.5 mL pen injectorIndication s:Pre-Diabetic Inject 10 mg under the skin once a week Sunday04/05/2023 12/05/19 24 mupirocin (BACTROBAN) 2 % ointmentIndication s:Lumbar radiculopathy Apply a small amount to the inside of each nostril, using a clean Q-tip for each nostril, twice a day for 5 days prior to surgery. 22 g 10/11/2023 10/30/20 23 naproxen sodium 220 mg capsuleIndications :Pain Take 1 tablet by mouth 2 (two) times a day as needed (Pain) 10/30/20 23 omeprazole (PriLOSEC) 20 mg capsuleIndications :Treatment of Non-Bleeding Gastric Disorder,GERD Take 1 capsule (20 mg total) by mouth every morning 12/05/19 24 documented as of this encounter Discharge Disposition Disposition Code Departure Means Destination Discharge to home or self care documented in this encounter Plan of Treatment Not on file documented as of this encounter Procedures Procedure Name Priority Date/Time Associated Diagnosis Comments CT LUMBAR SPINE WO CONTRAST Schedule Routine, Read Routine (OP Routine) 10/11/2023 10:15 AM AVIONICS SUPERVISOR Lumbar radiculopathy documented in this encounter Results * CT Lumbar Spine WO Contrast (10/11/2023 10:15 AM AVIONICS SUPERVISOR) Anatomical Region Laterality Modality Spine N/A Computed Tomogra phy 10/11/2023 5:00 PM AVIONICS SUPERVISOR Impressions 10/11/2023 5:05 PM AVIONICS SUPERVISOR 1. Moderate degenerative changes of the lumbar [...] Electronically signed by: Zac Mcgarry M.D. Narrative 10/11/2023 5:05 PM AVIONICS SUPERVISOR EXAMINATION: CT of the lumbar spine without contrast HISTORY: Lumbar radiculopathy TECHNIQUE: CT of the lumbar spine was performed according to the standard protocol without intravenous contrast. COMPARISON: 10/01/2023 MRI FINDINGS: There is straightening of the lumbar spine with mild retrolisthesis of L5 on S1. ??Scattered osseous hemangiomas are better seen on MRI. There is no acute fracture. The vertebral bodies are normal in height without compression fractures. ??Multilevel disc space height loss from L2 through S1, with vacuum disc phenomenon at L5-S1. There is retroperitoneal gas adjacent to the left kidney and extending along the dilated proximal ureter, likely related to recent transforaminal epidural steroid injection. ??There is abrupt tapering of the left ureter at the level of a focus of calcification (Series 5 image 185). Atherosclerotic calcifications are present in the abdominal aorta and iliac arteries. L1-L2: The disc is normal in configuration. There is mild bilateral facet arthropathy. There is no neuroforaminal stenosis. There is no spinal canal stenosis. L2-L3: The disc is normal in configuration. There is mild bilateral facet arthropathy. There is no neuroforaminal stenosis. There is no spinal canal stenosis. L3-L4: The disc is normal in configuration. There is moderate bilateral facet arthropathy with ligamentum flavum infolding. There is no neuroforaminal stenosis. There is no spinal canal stenosis. L4-L5: Diffuse disc bulge with superimposed left paracentral disc protrusion and left lateral extrusion. There is severe, left greater than right facet arthropathy. There is mild right and moderate left neuroforaminal stenosis. Moderate right and severe left lateral recess stenosis. There is moderate spinal canal stenosis. L5-S1: Diffuse symmetric disc bulge. There is moderate bilateral facet arthropathy. There is severe right, moderate left neuroforaminal stenosis. There is no spinal canal stenosis. Procedure Note Zac Mcgarry MD - 10/11/2023 EXAMINATION: CT of the lumbar spine without contrast HISTORY: Lumbar radiculopathy TECHNIQUE: CT of the lumbar spine was performed according to the standard protocol without intravenous contrast. COMPARISON: 10/01/2023 MRI FINDINGS: There is straightening of the lumbar spine with mild retrolisthesis of L5 on S1. Scattered osseous hemangiomas are better seen on MRI. There is no acute fracture. The vertebral bodies are normal in height without compression fractures. Multilevel disc space height loss from L2 through S1, with vacuum disc phenomenon at L5-S1. There is retroperitoneal gas adjacent to the left kidney and extending along the dilated proximal ureter, likely related to recent transforaminal epidural steroid injection. There is abrupt tapering of the left ureter at the level of a focus of calcification (Series 5 image 185). Atherosclerotic calcifications are present in the abdominal aorta and iliac arteries. L1-L2: The disc is normal in configuration. There is mild bilateral facet arthropathy. There is no neuroforaminal stenosis. There is no spinal canal stenosis. L2-L3: The disc is normal in configuration. There is mild bilateral facet arthropathy. There is no neuroforaminal stenosis. There is no spinal canal stenosis. L3-L4: The disc is normal in configuration. There is moderate bilateral facet arthropathy with ligamentum flavum infolding. There is no neuroforaminal stenosis. There is no spinal canal stenosis. L4-L5: Diffuse disc bulge with superimposed left paracentral disc protrusion and left lateral extrusion. There is severe, left greater than right facet arthropathy. There is mild right and moderate left neuroforaminal stenosis. Moderate right and severe left lateral recess stenosis. There is moderate spinal canal stenosis. L5-S1: Diffuse symmetric disc bulge. There is moderate bilateral facet arthropathy. There is severe right, moderate left neuroforaminal stenosis. There is no spinal canal stenosis. IMPRESSION: 1. Moderate degenerative changes of the [...] it. Electronically signed by: Zac Mcgarry M.D. Marcial Vu Jr., MD IM CT PROCEDURES F inal Result documented in this encounter Visit Diagnoses Diagnosis Lumbar radiculopathy Thoracic or lumbosacral neuritis or radiculitis, unspecified documented in this encounter Care Teams Fire Extinguisher Installer Relationship Specialty Start Date End Date Rl Medina DO [address] [place] [address] PCP - General 08/09/17 05/25/24 documented as of this encounter
--- OUTSIDE RECORDS SUMMARY | 2024-11-05 19:27 | XMS_ITS | Encounter Summary ---
Author Organization [facility] Address [address] [place] [address] Phone Care Team Providers Care Immigration Judge Name Role Phone Rl Medina DO Primary Care Provider Encounter Details Date Type Department Care Team (Late st Contact Info) Description 10/12/2023 Documentation [facility] Orthopaedic Surgery [address] [facility] [address] [place] [address] Marcial Vu Jr., MD [address] 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 Evans and his , Val, over the phone. His preoperative labs were notable for a UTI. Over the past few days, he has had worsening generalized weakness and feeling of illness as well as increasing weakness in the left quadriceps. Val says his weakness is so bad that he has been confined to recliner at most times and she does not feel safe transferring him to and from a shower to perform a preoperative bath. He has also been having chills and has had severe thirst, causing him to drink copious amounts of fluids. I am concerned that he may have a severe infection or that this may be a manifestation of another illness such as his prostate cancer or melanoma. I recommended that they come in to the [facility] Emergency Department for a medicine evaluation. I would recommend a full infection workup with chest x-ray and UA as well as a metastaticcancer workup given his cancer history including a CT chest/abdomen pelvis, ESR/CRP/CBC/CMP, SPEP/UPEP, and any additional workup that the medicine team recommend. Mr. Evans and Val understand and agree with the plan. Marcial Vu Jr., MD Efficiency Engineer Department of Orthopaedic Surgery Division of Spine Surgery [facility] [employer] [place], [place] S BOX CUSTODIAN documented in this encounter Plan of Treatment Not on file documented as of this encounter Visit Diagnoses Not on filedocumented in this encounter Care Teams Immigration Judge Relationship Specialty Start Date End Date Rl Medina DO [address] [place] [address] PCP - General 08/09/17 05/25/24 documented as of this encounter
--- OUTSIDE RECORDS SUMMARY | 2024-11-05 19:27 | XMS_ITS | Encounter Summary ---
Author Organization [facility] Address [address] [place] [address] Phone Care Team Providers Care Electrolytic Etcher Name Role Phone Rl Medina DO Primary Care Provider [phone] Reason for Visit * Reason Comments OAB Follow-up Medication didn't wo rk and gave him dry mouth. He would like to discuss Botox. * Consultation (Routine) - Closed Specialty Diagnoses / Procedures Referred By Manisha gale Referred To Contact Urology Diagnoses Bladder neck obstruction Rl Medina DO [address] [place] [address] Phone: tel: fax: [facility] (All Loc[facility] Referral ID Status Reason Start Date Expiration Date V isits Requested Visits Authorized [id number] Closed Specialty Services Required 10/10/2022 11/09/2023 99 99 Encounter Details Date Type Department Care Team (Late st Contact Info) Description 04/17/2023 1:20 PM CDT Office Visit [facility] Urology [address] [facility] Medical Office Building [address] [place] [address] Pan Irene MD [address] [facility] [address] [place] [address] Overactive bladder (Primary Dx); Urgency incontinence Social History Tobacco Use Types Packs/Day Years Used Date Smoking Tobacco: Former Cigarettes 1 11 1 969 1979 Passive Smoke Exposure: Past Smokeless Tobacco: Never Alcohol Use Standard Drinks/Week Comments Yes 14 (1 standard drink = 0.6 oz pu re alcohol) social AUDIT-C Answer Date Recorded Q1: How often do you have a drink containing alcohol? 4 or more times a week 11/13/2022 Q2: How many drinks containi ng alcohol do you have on a typical day when you are drinking? 1 or 2 3 Q3: How often do you have si x or more drinks on one occasion? 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 José Miguel Hernandez MD documented in this encounter Ordered Prescriptions Prescription Sig Dispense Quantity Refills Last Filled Start Date End Date cephalexin (KEFLEX) 500 mg capsuleIndications :Overactive bladder,Urgency incontinence Take one capsule by mouth 30 minutes before procedure. 1 capsule 04/17/2023 3 cephalexin (KEFLEX) 500 mg capsuleIndications :Overactive bladder,Urgency incontinence Take one capsule by mouth 30 minutes before procedure. 1 capsule 04/17/2023 3 documented in this encounter Progress Notes * Pan Irene MD - 04/17/2023 1:20 PM CDT HPI: Hira Evans is a 72 y.o. male with refractory overactive bladder, he has tried and failed Mirabegron, we have a detailed discussion about Botox injections into the bladder, he have never done 1 but he is quite knowledgeable about using Botox to manage bladder control. 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 He continues to have overactive bladder urge incontinence. He wants to proceed with Botox injections into the bladder in the office under local anesthetics LURN SI-10 questionnaire revealed: 3 for urgency, 3 for urgency incontinence, 2 for stress incontinence with coughing/sneezing, 0 for stress incontinence with exercises/lifting, 0 for pain/discomfort with bladder filling, 2 for delay to start urine stream, 2 for slow or weak urine stream, 1 for dribble, Note: [4=every time, 3=most of the time, 2=about half of time, 1=a few times, 0=never] 4-7/day [score of 1] for frequency, more than 3/night [score of 3] for nocturia. The LUTS is very bothered. The LURN-SI is scanned into medical record. ROS: Review Of Systems has been reviewed and can be found in the chart. The patient's past medical history, social history and family history are listed on their questionnaire, have been reviewed and can be found in the chart. UA: see chemical UA dipstick results from today. The chemical UA dip results was reviewed. Physical examination: GENERAL: Patient is healthy appearing, who is well developed, well nourished in no acute distress. Eyes: Pupils equal, round. Sclera anicteric. Chest: Lungs clear to auscultation bilaterally. Heart: Regular rate and rhythm. Abdomen: Soft and non-tender, no masses, no hernia. No CVA tenderness. Skin: No rashes or lesions. Musculoskeletal: Normal strength. No edema. Neurologic: Alert, nonfocal. Psychiatric: Normal affect and mood, oriented x 3. Post-void residual: Measurement of postvoid residual urine and/or bladder capacity by ultrasound, non imaging. PVR = 10 cc. Assessment and Plan: Overactive bladder Urge incontinence Can not tolerate anti muscarinic due to dry mouth Failed beta agonist Patient has read about Botox, he is quite knowledgeable about the pros and cons, complication expectations, the possibility of incomplete bladder emptying or needing catheterization. He would like toproceed with office 100 units injections Botox: Discussed with patient in detail all risks, benefits and alternatives to the procedure. All questions were answered. The patient wishes to proceed with the procedure as planned. Risks discussed and included, but were not limited to, bleeding, urinary tract infection, incomplete bladder emptying, urinary retention, and need for CIC/sofia. Patient is also aware that Botox may not completely make patient completely dry and may fail in some patients. Also repeated injection is necessary to maintainefficacy. Patient has elected to proceed with injection of Botox 100 units in office, for the treatment of urgency urinary incontinence and overactive bladder. Time: My total encounter time on 04/17/2023 was 25 minutes which was spent in the activities documented inthe note. This includes time spent prior to the visit and after the visit in direct care of the patient. This time does not include time spent in any separately reportable services. I have spent the encounter time with the patient taking a history, doing a physical exam and treatment planning, greater than 50% of the visit was spent on counseling and coordinating care, and explaining the surgery, the pros and cons of surgery, the alternatives to and various options of surgery,benefits and potential complications of surgery, associated with the following diagnosis: urge urinary incontinence, and the management of this condition. Patient was given the opportunities to ask questions regarding the surgery and consented to proceed with the following surgery: Botox injection,cystoscopy, and all indicated procedures. José Miguel Irene MD steward/stewardess third class (Urology) Division of Urologic Surgery [facility] Office [phone] 04/17/2023 11:53 AM Note: This note was generated by speech recognition software and may contain homophonic word substitutions or errors, please contact me for any questions. documented in this encounter Plan of Treatment Scheduled Orders Name Type Priority Associated Diagnoses Orde r Schedule Urine culture Urine, clean voided Microbiology Routine Overactive bladder Urgency incontinence Expected: 05/28/2023, Expires: 04/17/2024 documented as of this encounter Procedures Procedure Name Priority Date/Time Associated Diagnosis Comments POCT URINALYSIS DIPSTICK Routine 04/17/2023 11:30 AM CDT Overactive bladder documented in this encounter Results * POCT urinalysis dipstick (04/17/2023 11:30 AM CDT) Glucose, ur, POC Negative Negative MG/DL Ketones, ur, POC Negative Negative Blood, ur, POC Negative Negative pH, ur, POC 7.0 5.0 - 8.0 Protein, ur, POC Negative Negative Nitrite, ur, POC Negative Negative Leukocytes, ur, POC Negative Negative Lot Number x Urine 04/17/2023 11:3 0 AM CDT Pan Irene MD POINT OF CARE TEST ORDERABLES Final Result documented in this encounter Visit Diagnoses Diagnosis Overactive bladder- Primary Hypertonicity of bladder Urgency incontinence Urge incontinence documented in this encounter Discontinued Medications Medication Sig Discontinue Reason Start Date End Da te cephalexin (KEFLEX) 500 mg capsuleIndications:Overac tive bladder,Urgency incontinence Take one capsule by mouth 30 minutes before procedure. Reorder 04/17/2023 04/17/2023 documented as of this encounter Care Teams Electrolytic Etcher Relationship Specialty [place] [address] [place] [id number] PCP - General 08/09/17 05/25/24 documented as of this encounter
--- OUTSIDE RECORDS SUMMARY | 2024-11-05 19:27 | XMS_ITS | Encounter Summary ---
Author Organization [facility] Address [address] [place] [address] Phone Care Team Providers Care Biodiesel Division Manager Name Role Phone Rl Medina DO Primary Care Provider Reason for Visit * Reason Onset Date Comments Surgery Confirmation 10/10/2023 Encounter Details Date Type Department Care Team (Late st Contact Info) Description 10/10/2023 Telephone [facility] Orthopaedic Surgery [address] [facility] Medicine 6th [place] [address] [place] [address] Marcial Vu Jr., MD [address] [facility] [address] [place] [address] Surgery Confirmation Social History Tobacco Use Types Packs/Day Years [...] file 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 Val stated all questions had been answered from Amor or I earlier in the week. Informed Irenehumaira that pt has UTI and I am waiting to hear back from urologist's office for recs on abx. She stated pt's urine has been odorous and turbid this week. Pt also had night sweats and felt clammy yesterday evening but does not currently have a fever. His also believes he is becoming slightly weaker each day. Pt is able to stand and turn to pivot but isn't walking much, if at all. believes he is a fair amount weaker since Sunday. states that patient his history of urinary inco ntinence which requires depends at bedtime. She does not believe his urinary incontinence has changed over the past week. Denies pt to have change or loss of bowel control or s/s of saddle anesthesia. Also told Val authorization for surgery is still pending. Informed Val I will update Dr. Vu and call her back this afternoon with additional recommendations/ updates. Val in agreement with plan. CIPAL EMBEDDED SOFTWARE ENGINEER * Telephone Encounter - Galina Franco RN - 10/12/2023 10:08 AM PRINCIPAL EMBEDDED SOFTWARE ENGINEER Pt's labs from yesterday +UTI, +E.coli 100,000. Contacted Dr. Oquendo office, pt's urologist, for recommendations on treatment for UTI. Left VM for Dr. Irene's nurse, Alice, requesting a call back with recommendations. Alice's voicemail stated she is out of the office today and will return on Sunday. Called Dr. Irene's office again and was transferred to Lela, who I was told is covering for Alice while she is out. Left VM for Lela requesting a call back to my direct office number with recommendations. CIPAL EMBEDDED SOFTWARE ENGINEER * Telephone Encounter - Galina Franco RN - 10/10/2023 4:14 PM CST Spoke with pt's , Val, regarding new surgery date for pt that is 10/16 at [facility]. Discussed pre-operative appointments that are tomorrow and Sunday at [facility]. Pt already discontinued advil and instructed pt to discontinue fish oil and tumeric (delayed discussion since initial OR date was 10/23. Pt and aware that authorization for surgery is still pending for surgery, it has been expedited but it may be difficult to obtain prior to surgery. Will keep pt updated. All information sent via [employer] as well. Pt/ to call back if anything additional is needed. CIPAL EMBEDDED SOFTWARE ENGINEER documented in this encounter Plan of Treatment Not on file documented as of this encounter Visit Diagnoses Not on filedocumented in this encounter Care Teams Biodiesel Division Manager Relationship Specialty Start Date End Date Rl Medina DO [address] [place] [address] PCP - General 08/09/17 05/25/24 documented as of this encounter
--- OUTSIDE RECORDS SUMMARY | 2024-11-05 19:27 | XMS_ITS | Encounter Summary ---
Author Organization [facility] Address [address] [place] [address] Phone Care Team Providers Care Makeup Instructor Name Role Phone Rl Medina DO Primary Care Provider [phone] Reason for Visit * Consultation (Routine) - Closed Specialty Diagnoses / Procedures Referred By Manisha gale Referred To Contact Urology Diagnoses Bladder neck obstruction Rl Medina DO [address] [place] [address] Phone: tel: fax: [facility] (All Locations) Referral ID Status Reason Start Date Expiration Date V isits Requested Visits Authorized [id number] Closed Specialty Services Required 10/10/2022 11/09/2023 99 99 Encounter Details Date Type Department Care Team (Late st Contact Info) Description 07/02/2023 2:40 PM CDT Office Visit [facility] Urology [address] [facility] Medical Office Building [address] [place] [address] Urge incontinence (Primary Dx) Social History Tobacco Use Types Packs/Day Years Used Date Smoking Tobacco: Former Cigarettes 1 11 1 969 - 1979 Passive Smoke Exposure: Past Smokeless Tobacco: [...] on file 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 PVR: 8 ml Patient had no symptoms of UTI. Patient denied any straining while urinating. Patient stated he is doing well since the Botox. Patient made aware to call office if he was to have any concerns. Supervised by: Dr. Nina Reddy CMA III documented in this encounter Plan of Treatment Not on file documented as of this encounter Procedures Procedure Name Priority Date/Time Associated Diagnosis Comments MEASURE POST VOID RESIDUAL Routine 07/02/2023 Urge incontinence documented in this encounter Results * Measure post void residual (07/02/2023) Narrative Stefany Reddy CMA - 07/02/2023 Measurement of post-voiding residual urine and/or bladder capacity by ultrasound, non-imaging. ??PVR = 8 ml Pan Brad Irene MD NURSING ASSESSMENTS Final Resu lt documented in this encounter Visit Diagnoses Diagnosis Urge incontinence- Primary documented in this encounter Care Teams Makeup Instructor Relationship Specialty Start Date End Date Rl Medina DO [address] [place] [address] PCP - General 08/09/17 05/25/24 documented as of this encounter
--- OUTSIDE RECORDS SUMMARY | 2024-11-05 19:27 | XMS_ITS | Encounter Summary ---
Author Organization [facility] Address [address] [place] [address] Phone Care Team Providers Care Hot Saw Operator Name Role Phone Rl Medina DO Primary Care Provider Reason for Referral * Medication Authorization (Routine) - Canceled Specialty Diagnoses / Procedures Referred By Contac t Referred To Contact Urology Diagnoses Urge incontinence Overactive bladder Pan Irene MD [address] [facility] [address] [place] [address] Phone: tel: fax: Referral ID Status Reason Start Date Expiration Date V isits Requested Visits Authorized [id number] Canceled 05/06/2024 05/05/2025 4 4 * Medication Authorization (Routine) - Authorized Specialty Diagnoses / Procedures Referred By Contac t Referred To Contact Urology Diagnoses Urgency incontinence Pan Irene MD [address] [facility] [address] [place] [address] Phone: tel: fax: Referral ID Status Reason Start Date Expiration Date V isits Requested Visits Authorized [id number] Authorized 05/01/2024 05/01/2025 4 4 Reason for Visit * Reason Comments Follow-up Cysto for Botox 100 units * Consultation (Routine) - Closed Specialty Diagnoses / Procedures Referred By Contrussell t Referred To Contact Urology Diagnoses Bladder neck obstruction Rl Medina DO [address] [place] [address] Phone: tel: fax: [facility] (All Locations) Referral ID Status Reason Start Date Expiration Date V isits Requested Visits Authorized [id number] Closed Specialty Services Required 10/10/2022 11/09/2023 99 99 Encounter Details Date Type Department Care Team (Late st Contact Info) Description 06/14/2023 2:40 PM CDT Office Visit [facility] Urology [address] 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 Botox: Lot Number [id number] Exp Date 07/2025 Patient has elected to proceed with injection of Botox into the bladder. Discussed with patient in detail all risks, [...] repeated injection is necessary to maintainefficacy. Patient would like to proceed with injection of 100 units of Botox in office. Botox procedure: UA: See urine dip results from office CYSTOSCOPY WITH BOTOX INJECTION The patient was given Cipro 500 mg (as a prophylaxis). The skin was prepped with betadine. Lidocaine jelly was instilled into the urethra. A 16 Fr red rubber catheter was used to intubate and drain the bladder. Next, 30ml of 4% Lidocaine with 30 ml NS was instilled into bladder and allowed to sit for 15 minutes while the patient rotated the pelvis. Next, the patient's bladder was drained again with the red rubber catheter. 100 units of Botox was reconstituted with 20 ml of sterile saline. A flexible cystoscope was inserted into the bladder. The bladder was systematically inspected and the ureteral orifices were identified. 100 units of reconstituted Botulinum toxin was injected in 0.5-1.0 ml aliquots into the posterior bladder wall, left lateral bladder wall, right lateral bladder wall, and the trigone area at 1cm interval spacing, avoiding the ureteral orifices and dome of the bladder. The patient's bladder was subsequently drained. Instructed to call if patient develops urinary retention, difficulty urinating, persistent hematuria, or UTI symptoms. The cystoscopy and Botox injection were performed in the presence of physicist solid earth, Alice Pretty. Nursing instructions: Patient will follow up in about 2 weeks to check PVR (unless patient is already doing CIC). If PVR > 350 cc, teach CIC, and see Dr. eTto turner in one month, keep a 3 days diary before seeingDr. Teto turner. If PVR > 250 cc AND symptomatic from incomplete bladder emptying, teach CIC, and and see Dr. Dangelo in one month, keep a 3 days diary before seeing Dr. Teto turner. If UTI symptoms, send a urine culture, inform patient to call Alice 2 days later for results of the urine culture. If patients does CIC, no need to check PVR after Botox. documented in this encounter Plan of Treatment Not on file documented as of this encounter Procedures Procedure Name Priority Date/Time Associated Diagnosis Comments POCT URINALYSIS DIPSTICK Routine 06/14/2023 1:43 PM CDT Urge incontinence documented in this encounter Results * POCT urinalysis dipstick (06/14/2023 1:43 PM CDT) Glucose, ur, POC Negative Negative MG/DL Ketones, ur, POC Negative Negative Blood, ur, POC Negative Negative pH, ur, POC 7.0 5.0 - 8.0 Protein, ur, POC Negative Negative Nitrite, ur, POC Negative Negative Leukocytes, ur, POC Negative Negative Lot Number x Urine 06/14/2023 1:43 PM CDT Pan Irene MD POINT OF CARE TEST ORDERABLES Final Result documented in this encounter Visit Diagnoses Diagnosis Urge incontinence- Primary Overactive bladder Hypertonicity of bladder documented in this encounter Orders Medications Ordered That Armando ht Not Have Been Administered Count Last Ordered Date First Ordered Date onabotulinumtoxin A (BOTOX) injection 100 Units 2 06/14/2023 04/24/2023 documented in this encounter Care Teams Hot Saw Operator Relationship Specialty [place] [address] [place] [address] PCP - General 08/09/17 05/25/24 documented as of this encounter
--- OUTSIDE RECORDS SUMMARY | 2024-11-05 19:27 | XMS_ITS | Encounter Summary ---
Author Organization [facility] Address [address] [place] [address] Phone Care Team Providers Care Fingernail Sculpturer Name Role Phone Rl Medina DO Primary Care Provider Encounter Details Date Type Department Care Team (Late st Contact Info) Description 10/11/2023 12:15 PM BIG MACHINE CONSULTANT Clinical Support [facility] Orthopaedic Surgery [address] 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 The patient was accompanied by his . I discussed with the patient, preoperative preparations including testing and consultations needed prior to surgery. I discussed with the patient, the hospital course, the pain management protocol, possible rehabilitation after surgery, and return to work estimates. Surgeon: Dr. Marcial Vu Jr Pre-Operative Diagnosis: Lumbar Radiculopathy Surgical Plan: L4-5 open posterior spinal fusion with instrumentation, L4-5 transforaminal lumbar interbody fusion, L4-5 direct decompression, spinal cord monitoring, autograft, allograft, bone morphogenic protein Instrumentation: Globus Surgery Date: 10/16/23 Surgery Arrival Time: 1145 Surgery Location: Surgery is scheduled [facility], [address] [place] [address] Admission Plan: 23 Hour Observation Post Operative Destination: Surgical/Ortho Floor Medications: has a current medication list which includes the following prescription(s): acyclovir (ZOVIRAX), cephalexin (KEFLEX), cetirizine (ZYRTEC), cholecalciferol (VITAMIN D-3), coenzyme q10, dilt-xr, fish,bora,flax oils- om3,6,9no1, irbesartan (AVAPRO), mounjaro, naproxen sodium, and omeprazole (PRILOSEC). Allergies: has No Known Allergies. PMH: Past Medical History: Diagnosis Date Allergic rhinitis Arthritis OA Cancer (CMS/HCC) ([facility]) prostate and melonomia Gastric reflux GERD (gastroesophageal reflux disease) History of melanoma Hypertension Kidney stone Personal history of prostate cancer Pneumonia Seasonal allergies Discharge Plan: Home with Family DME: none given Misc Orders: Medication Teaching: Patient was given surgery instructions including stopping all NSAID's and Aspirin products 10-14 days before surgery. I discussed with the patient, their diagnosis, surgical procedure, and risks of complications at length. The patient completed the preoperative questionnaires and we reviewed the wake up test together. A surgery teaching booklet was provided upon scheduling surgery. CPAP appointment: 10/11/23 at 10:30. Pre-procedure COVID-19 TESTING is required prior to surgery. Based on bed placement a rapid test may be done in the pre surgery holding area if there is a planned overnight stay in the hospital. The patient was prescribed the 5 day pre surgery mupirocin ointment with instructions for use. The narcotic agreement, surgical procedure consent and the blood transfusion consent were reviewed with the patient. The narcotic policy was reviewed, and the patient was made aware that opioids/narcotics will only be filled for a 7 day supply at a time. The patient was instructed that Dr. Marcial Vu Jr will prescribe pain medications for up to 90 days post surgery. The patient gave informed consent to the above mentioned procedure and the Surgical and Blood Transfusion Consent, Narcotic Agreement - discussed 7 day script protocol and 90 day post operative acuteprotocol, and Bone Morphogenetic Protein Consent were signed. Patient was instructed not to eat solids after midnight and clears until 2 hours prior to the arrival time prior to surgery. Patient was told to call the office if they have any additional questions prior to their surgery date. Patient verbalized understanding of these instructions. All information was given to patient regarding his/her diagnosis, preoperative instructions, discharge instructions, and postoperative surgical restrictions. Patient verbalized understanding of all instructions. All questions were answered. Patient agreed to proceed with the planned surgery. Amor Porter RN Clinical Nurse Coordinator Department of Orthopaedic Spine Surgery MACHINE CONSULTANT documented in this encounter Plan of Treatment Not on file documented as of this encounter Visit Diagnoses Not on filedocumented in this encounter Care Teams Fingernail Sculpturer Relationship Specialty Start Date End Date Rl Medina DO [address] [place] [id number] PCP - General 08/09/17 05/25/24 documented as of this encounter
--- OUTSIDE RECORDS SUMMARY | 2024-11-05 19:27 | XMS_ITS | Encounter Summary ---
Author Organization [facility] Address [address] [place] [address] Phone Care Team Providers Care Cyber Workforce Developer And Manager Name Role Phone Rl Medina DO Primary Care Provider Reason for Visit * Reason Comments consult for BOTOX * Consultation (Routine) - Closed Specialty Diagnoses / Procedures Referred By Manisha gale Referred To Contact Urology Diagnoses Bladder neck obstruction Rl Medina DO [address] [place] [address] Phone: tel: fax: [facility] (All Locations) Referral ID Status Reason Start Date Expiration Date V isits Requested Visits Authorized [id number] Closed Specialty Services Required 10/10/2022 11/09/2023 99 [phone] Encounter Details Date Type Department Care Team (Late st Contact Info) Description 03/15/2023 10:40 AM CDT Office Visit [facility] Urology [address] [facility] [address] [place] [address] Pan Irene MD [address] [facility] [address] [place] [address] Overactive bladder (Primary Dx); Prostate cancer (HCC); Other abnormal findings in urine Social History Tobacco Use Types Packs/Day Years Used Date Smoking Tobacco: Former Cigarettes 1 11 969 1979 Passive Smoke Exposure: Past Smokeless [...] on file 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 male with postprostatectomy urinary incontinence. He has urinary urgency, sudden urge to urinate, when that happens he really needs to go to the bathroom very quickly, half of the time he has urgency urinary incontinence. He also wakes up in the middle of the night 2-3 times with a sudden urge to urinate and has to go to the bathroom. The symptom is not consistent withsignificant stress urinary incontinence. His urgency and urgency incontinence much more bothersome than stress incontinence. His tried 1 overactive bladder medication, I think it was Motegrity, and he has dry mouth and it did not help him. He did not have urodynamic studies with us, but he is detrusor overactivity per Dr. Mcmillan's office note in an outside urodynamic test. He is here to discuss Botox another treatment options. His recent bladder biopsy showed urothelial dysplasia. LURN SI-10 questionnaire revealed: 3 for urgency, 2 for urgency incontinence, 1 for stress incontinence with coughing/sneezing, 1 for stress incontinence with exercises/lifting, 0 for pain/discomfort with bladder filling, 2 for delay to start urine stream, 2 for slow or weak urine stream, 1 for dribble, Note: [4=every time, 3=most of the time, 2=about half of time, 1=a few times, 0=never] 4-7/day [score of 1] for frequency, 2-3/night [score of 2] for nocturia. The LUTS is very bothered. [...] Normal affect and mood, oriented x 3. Assessment and Plan: Urinary urgency Urgency incontinence Nocturia History of prostatectomy for prostate cancer Bladder biopsy shows no urothelial malignancy UUI, urgency > TUSHAR symptoms We have discussed different treatment options for his overactive bladder symptoms. He has tried 1 medication, he think it was Mirabegron and how it did not work and gave him dry mouth. We will put her on VESIcare 5 mg once a day. Urine culture to rule out UTI We have also discussed the pros and cons of Botox injections into the bladder, I think it is reasonable to try another OAB medications before proceeding with Botox. I given him information to consider for Botox, we have talked about the efficacy, the possibility of incomplete bladder emptying or retention, needing CIC. We will bring him back in 1 month and see how he does with VESIcare. Botox: Discussed with patient in detail all [...] Also repeated injection is necessary to maintainefficacy. Time: My total encounter time on 03/15/2023 was 25 minutes which was spent in [...] the surgery, the pros and cons of various treatments. José Miguel Irene MD auto mechanics teacher (Urology) Division of Urologic Surgery [facility] Office [phone] 03/15/2023 10:26 AM Note: This note was generated by speech recognition software and may contain homophonic word substitutions or errors, please contact me for any questions. documented in this encounter Plan of Treatment Not on file documented as of this encounter Procedures Procedure Name Priority Date/Time Associated Diagnosis Comments POCT URINALYSIS DIPSTICK Routine 03/15/2023 10:10 AM CDT Overactive bladder documented in this encounter Results * Urine culture Urine, clean voided (03/15/2023 2:53 PM CDT) Report Final Report: Less than 100,000 colonies/mL (clinically insignificant growth based on current clinical standards) [facility] Organism (CLINICALLY INSIGNIFICANT GROWTH [facility] Urine, clean voided 03/15/2023 2:53 PM CDT 03/15/2023 3:53 PM CDT Narrative [facility] - 03/16/2023 6:38 PM CDT Testing performed by Microbiology Laboratory ([phone]) Pan Irene MD LAB MICROBIOLOGY - GENERAL ORD ERABLES Final Result [facility] Department [place] [address] * (ABNORMAL) POCT urinalysis dipstick (03/15/2023 10:10 AM CDT) Glucose, ur, POC Negative Negative MG/DL Ketones, ur, POC Negative Negative Blood, ur, POC Negative Negative pH, ur, POC 7.0 5.0 - 8.0 Protein, ur, POC 1+(A) Negative Nitrite, ur, POC Negative Negative Leukocytes, ur, POC Negative Negative Lot Number x Urine 03/15/2023 10:1 0 AM CDT Pan Irene MD POINT OF CARE TEST ORDERABLES Final Result documented in this encounter Visit Diagnoses Diagnosis Overactive bladder- Primary Hypertonicity of bladder Prostate cancer (HCC) Malignant neoplasm of prostate Other abnormal findings in urine Overactive bladder Hypertonicity of bladder Prostate cancer (HCC) Malignant neoplasm of prostate Other abnormal findings in urine documented in this encounter Care Teams Cyber Workforce Developer And Manager Relationship Specialty Start Date End Date Rl Medina DO [address] [place] [address] PCP - General 08/09/17 05/25/24 documented as of this encounter
--- OUTSIDE RECORDS SUMMARY | 2024-11-05 19:27 | XMS_ITS | Encounter Summary ---
Author Organization [facility] Address [address] [place] [address] Care Team Providers Care Fha Underwriter Name Role Phone Rl Medina DO Primary Care Provider [phone] Reason for Visit * Auth/Cert Specialty Diagnoses / Procedures Referred By Contac t Referred To Contact Diagnoses Ureteral colic Procedures na Referral ID Status Reason Start Date Expiration Date Visits Re quested Visits Authorized [id number] 1 1 Encounter Details Date Type Department Care Team (Latest Contact Info) Description 10/11/2023 10:30 AM CLIMBING GUIDE Pre-Admission Testing [facility] Center for Preoperative Assessment and Planning [facility] ([facility]) [address] [place] [id number] Preoperative testing (Primary Dx); Lumbar radiculopathy; Anticoagulation management encounter; Vitamin D deficiency Anesthesia Record Procedure Summary Procedure Name Responsible [...] No value filed. 1133 An Stop Meds * Agents No agents on file. * Blood No blood administrations on file. Lines, Drains, and Airways Type Details Placement Removal RETIRED Surgical Site 10/13/23; 0255; Pe nis; 10/24/23; 0800 (no wound present); Removal date unknown/not present on admission 10/13/23 0255 by Daniela Kothari RN 10/24/23 0800 by Luis Ruffin RN Urethral Catheter Placement Date: 10/13/23; Placement Time: 0303; Inserted by: Dr. Mcneil; Existing LDA Placed by: Other (Comment); Type: Double-lumen; Balloon Size: 10 mL; Urine Returned: Yes; Removal Date: 10/18/23; Removal Time: 0940; Removal Reason: Disontinued in OR 10/13/23 0303 by Daniela Kothari RN 10/18/23 0940 by Gloria Cifuentes RN Peripheral IV Placement Date: 10/13/23; Placement Time: 09; Catheter Size: 20 G; Orientation: Right; Location: Forearm; Site Prep: Chlorhexidine; Inserted by: Miguelito Norman RN; Insertion Attempts: 1; Patient Tolerance: Tolerated well; Removal Date: 10/23/23; Removal Time: 2300; Removal Reason: Not present on admission 10/13/23 0901 by Carey Norman RN 10/23/23 2300 by Edwige Porras RN Peripheral IV Placement Date: 10/13/23; Placement Time: 1052; Catheter Size: 20 G; Orientation: Left; Location: Antecubital; Removal Date: 10/30/23; Removal Time: 1404; Removal Reason: Discharge 10/13/23 1052 by Js Cardenas RN 10/30/23 1404 by Matilda Gonzales, RN Nephrostomy 10/14/23; 1334; Left ; 10 Fr. 10/14/23 1334 by Carey Norman RN 10/20/239 by Johnnie Flores RN Supraglottic Airway Placement Date: 10/18/23; Placement Time: 950 (created via procedure documentation); Mask Ventilation: 0; Size: 4; Insertion Attempts: 1; Removal Date: 10/18/23; Removal Time: 1120 10/18/23 09 by Nolvia Multani MD 10/18/23 112 by Nolvia Multani MD Peripheral IV Placement Date: 10/18/23; Placement Time: 950 (created via procedure documentation); Catheter Size: 18 G; Orientation: Right; Location: Hand; Site Prep: Alcohol; Insertion Attempts: 1; Removal Date: 10/29/23; Removal Time: 658 (unk prev shift); Removal Reason: Other (Comment) (unk) 10/18/23 09 by Nolvia Multani MD 10/29/23 06 by Matilda Gonzales RN Urethral Catheter Placement Date: 10/18/23; Placement Time: 111; Inserted by: Vero Tolentino; Type: Non-latex; Balloon Size: 10 mL; Urine Returned: Yes; Removal Date: 10/23/23; Removal Time: 2133; Removal Reason: Disontinued in OR 10/18/23 1115 by Gloria Cifuentes RN 10/23/232133 by Rena Michelle, NARENDRA RETIRED Surgical Site 10/18/23; 1127; Le ft; [...] on file 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 CLIMBING GUIDE Gender Identity Not on file Sexual Orientation Not on file 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 Not on file Not on file documented as of this encounter Last Filed Vital Signs Vital Sign Reading Time Taken Comments Blood Pressure 108/66 10/11/2023 11:03 AM CLIMBING GUIDE Pulse 66 10/11/2023 11:02 AM CLIMBING GUIDE Temperature - - Respiratory Rate 16 10/11/2023 11:0 2 AM CLIMBING GUIDE Oxygen Saturation 98% 10/11/2023 11: 02 AM CLIMBING GUIDE Inhaled Oxygen Concentration - - Weight 86.6 kg (190 lb 14.7 oz) 10/11/2023 2:13 PM CLIMBING GUIDE Height 172.7 cm (5' 8 ) 10/11/2023 11:0 2 AM CLIMBING GUIDE Body Mass Index 29.03 10/11/2023 11:02 AM CLIMBING GUIDE documented in this encounter Consult Notes * Damaris Whitehead, CHRISTOPHE - 10/11/2023 10:30 AM CST Pre-Operative Nutritional Assessment Reason for Assessment: Encounter Date: 10/11/23 2:15 PM Patient is a 73 y.o. male being evaluated in the Center for Pre-Operative Assessment & Planningfor a(n) FUSION SPINAL - POSTERIOR LUMBAR/THORACIC WITH INSTRUMENTATION: L4-5 open posterior spinalfusion with instrumentation, L4-5 transforaminal lumbar interbody fusion, L4-5 direct decompression, spinal cord monitoring, autograft, allograft, bone morphogenic protein, SPINAL CORD MONITORING, BONE GRAFT WITH BONE MORPHOGENIC PROTEIN, DECOMPRESSION LUMBAR - POSTERIOR with Dr. Vu on 10/16/2023. Objective Past Medical History: Diagnosis Date Allergic [...] ARTHROPLASTY Right 09/30/2019 VASECTOMY 30 years ago HOME MEDICATIONS : acyclovir (ZOVIRAX) 400 mg tablet cephalexin (KEFLEX) 500 mg capsule cetirizine (ZyrTEC) 10 mg tablet cholecalciferol (VITAMIN D-3) 5,000 unit capsule coenzyme Q10 100 mg capsule DILT-XR 240 mg 24 hr capsule fish,bora,flax oils-om3,6,9no1 400-400-400 mg capsule irbesartan (AVAPRO) 300 mg tablet Mounjaro 10 mg/0.5 mL pen injector naproxen sodium 220 mg capsule omeprazole (PriLOSEC) 20 mg capsule cephalexin (KEFLEX) 500 mg capsule loratadine (CLARITIN) 10 mg tablet peg [id number] 1-0.36-0.2 % drops sildenafil, antihypertensive, (REVATIO) 20 mg tablet solifenacin (VESIcare) 5 mg tablet No Known Allergies Assessment: Pertinent Labs: Lab Results Component Value Date CREATININE 1.08 10/11/2023 BUNSER 23 10/11/2023 SODIUM 132 (L) 10/11/2023 POTASSIUM 3.3 10/11/2023 ALBUMIN 4.1 10/11/2023 GLUCOSE 138 10/11/2023 ALKPHOS 120 10/11/2023 ALT 20 10/11/2023 AST 24 10/11/2023 Anthrometrics: Height: 172.7 cm (5' 8 ) Weight: 86.6 kg (190 lb 14.7 oz) per CPAP standing scale Body mass index is 29.03 kg/m??. [place] body weight: 68.4 kg (150 lb 12.7 oz) Adjusted ideal body weight: 75.7 kg (166 lb 13.5 oz) UBW: ~205 lb Weight changes: Pt reports intentionally losing ~15 lbs in the past 6 months Wt Readings from Last 10 Encounters: 10/11/23 86.6 kg (190 lb 14.7 oz) 09/13/23 84.8 kg (187 lb) 10/25/22 83.9 kg (185 lb) 10/17/21 89 kg (196 lb 3.2 oz) 09/28/21 89.8 kg (198 lb) 08/09/21 89.4 kg (197 lb) 09/30/19 86.2 kg (190 lb) 09/03/19 90 kg (198 lb 6.6 oz) 07/23/19 86.2 kg (190 lb) 10/25/16 81.7 kg (180 lb 0.1 oz) Gastrointestinal issues or complaints: early satiety Nutritional Diagnosis: Nutrition Diagnosis 1: Inadequate oral intake Related to: Early satiety Evidenced by: Patient interview Nutrition Needs Calculations: Calculated Energy Needs Using Equations Weight: 86.6 kg (190 lb 14.7 oz) Height: 172.7 cm (5' 8 ) Estimated Protein Needs Type of Weight Used for Estimated Protein : [place] Protein Needs Based on g/k.2 Total Protein Estimated Needs (gm): 83.88 Kcal/kg Type of Weight Used for Estimated Kcals: Current Kcal/k Total Kcal/kg Estimated Needs : 1732 Estimated Fluid Needs Type of Weight Used for Estimated Fluid Needs: Current Fluid Needs Based on : 1 ml/kcal Total Fluid Estimated Needs: 1732 Impression: Saw patient in CPAP Clinic today. Weight is 190 lb. Pt was screened d/t poor PO intake, early satiety and decreased activity level. Pt reports a usual BW of ~205 lb, pt weighs 190 lb. Pt reports losing ~15 lbs in about 6 months d/t using Monjuaro diabetes medication. Pt reports the medication caused him to feel full quickly, causing him to eat less and lose weight. Pt reports eating about 50% of normal baseline. Pt is agreeable to using a low calorie, low sugar protein shake 1 time a day in addition to meals to help increase protein before and after surgery. Pt appears well nourished. Pt does not meet for malnutrition at this time. Recent A1c on 10/11/2023: 5.5 Diet recall: lasagna for dinner. Current diet is inadequate. Intervention and Monitoring: Goals: Patient/caregiver able to teach back understanding of role of diet in disease process prior to discharge, Tolerance of medical food supplement by next assessment Interventions: Education, nutrition, Encouragement, Meals and snacks, Medical food supplement Monitoring and Evaluation: Appetite, PO intake, Supplement tolerance, Diet- related questions, Bloodglucoses, Weight changes, Wound healing, Food preferences Reviewed pre-surgical nutritional needs including increased intake of foods rich in zinc, vitamin C, omega-3 fatty acids, and protein. Recommended small, frequent meals with protein source at each. Reviewed protein rich foods with patient. Discussed handout w/ nutritional recommendations for surgery and RD phone number. Encouraged patient to consume nutrition supplement 1-2 times daily before andafter surgery and provided suggestions of Premier Protein or similar protein shake. Recommend regular blood glucose monitoring and compliance w/ blood sugar management regimen as it relates to surgery. Expect adherence to recommendations to be GOOD. RD will follow as needed post-operatively. Damaris Whitehead RD, LD Clinical Dietitian, CPAP [phone] BING GUIDE documented in this encounter Miscellaneous Notes * Perioperative Nursing Note - Annelise Escalante RN - 10/11/2023 10:30 AM CST Center for Preoperative Assessment and Planning Perioperative Nursing Note CPAP Clinic at [facility] ([facility]) Date: 10/11/23 This assessment was completed with the patient. Vitals: 10/11/23 1102 10/11/23 1103 BP: 110/61 108/66 BP Location: Right arm Left arm Patient Position: Sitting Pulse: 66 Resp: 16 SpO2: 98% Weight: 86.6 kg (190 lb 14.7 oz) Height: 172.7 cm (5' 8 ) CHEST CIRCUMFERENCE: n/a Social History Tobacco Use Smoking Status Former Packs/day: 1.00 Years: 8.00 Additional pack years: 0.00 Total pack years: 8.00 Types: Cigarettes Start date: 11/05/1968 Quit date: 11/05/1979 Years since quittin.9 Passive exposure: Past Smokeless Tobacco Never Substance and Sexual Activity Drug Use Yes Frequency: 7.0 times per week Types: Medical marijuana Comment: MJ = edibles daily for pain; Alcohol = 2 glasses of wine per evening Alcohol Use Q1: How often do you have a drink containing alcohol?: 4 or more times a week Q2: How many drinks containing alcohol do you have on a typical day when you are drinking?: 1 or 2 Q3: How often do you have six or more drinks on one occasion?: Never Outpatient Medications Marked as Taking for the 10/11/23 encounter (Pre-Admission Testing) with [facility] CPAP NURSE Medication Sig Dispense Refill acyclovir (ZOVIRAX) 400 mg tablet Take 1 [...] 1 tablet (10 mg total) by mouth preparation supervisor before breakfast cholecalciferol (VITAMIN D-3) 5,000 unit capsule Take 1 capsule (5,000 Units total) by mouth every morning coenzyme Q10 100 mg capsule Take 1 capsule (100 mg total) by mouth preparation supervisor before breakfast DILT-XR 240 mg 24 hr capsule Take 1 capsule (240 mg total) by mouth 2 (two) times a day 0 fish,bora,flax oils-om3,6,9no1 400-400-400 mg capsule Take 1 tablet by mouth preparation supervisor before breakfast irbesartan (AVAPRO) 300 mg tablet Take 1 tablet (300 mg total) by mouth every morning Mounjaro 10 mg/0.5 mL pen injector Inject 10 mg under the skin once a week Sunday naproxen sodium 220 mg capsule Take 1 tablet by mouth 2 (two) times a day as needed (Pain) omeprazole (PriLOSEC) 20 mg capsule Take 1 capsule (20 mg total) by mouth every morning Implants Bone Cement [employer] 6197-9-010 Simplex P Full Dose Radiopaque Preblend Cement Bone Tobramycin - S0- [id number] - Implanted (Right) Knee Inventory item: [employer] Simplex P Full Dose Radiopaque Preblend Cement Bone [id number] Model/Cat number: [id number] Serial number: 0 Plate Printer: [employer] Lot number: [id number] Device identifier: [id number] Device identifier type: GS1 As of 09/30/2019 Status: Implanted Other - see comments [employer] [id number] Kandace II 15mm Constrain Knee 5-6 Insert Articular Uhmwpe- S0 - [id number] - Implanted (Right) Knee Inventory item: [employer] Kandace Ii 15mm Constrain Knee 5-6 Insert ArticularUhmwpe [id number] Model/Cat number: [id number] Serial number: 0 Plate Printer: [employer] Lot number: [id number] As of 09/30/2019 Status: Implanted [employer] [id number] Legion 10mm Screw Knee 6 Wedge Femoral - S0 - [id number] -Implanted (Right) Knee Inventory item: [employer] Legion 10mm Screw Knee 6 Wedge Femoral [id number] Model/Cat number: [id number] Serial number: 0 Plate Printer: [employer] Device identifier: [id number] Device identifier type: [facility] As of 09/30/2019 Status: Implanted [employer] [id number] Legion Constrain Knee Right 6 Component Femoral Oxinium - S0 - [id number] - Implanted (Right) Knee Inventory item: [employer] Legion Constrain Knee Right 6 Component Femoral Oxinium [id number] Model/Cat number: [id number] Serial number: 0 Plate Printer: [employer] Lot number: [id number] As of 09/30/2019 Status: Implanted [employer] [id number] Legion 5mm Alcon Step Knee Right Medial Left Lateral 5-6 Wedge - S0 - [id number] - Implanted (Right) Knee Inventory item: [employer] Legion 5mm Alcon Step Knee Right Medial Left Lateral5-6 Wedge [id number] Model/Cat number: [id number] Serial number: 0 Plate Printer: [employer] Device identifier: [id number] Device identifier type: [facility] As of 09/30/2019 Status: Implanted [employer] [id number] Legion 15mm 160mm Press Fit Knee Stem Femoral - S0 - [id number] - Implanted (Right) Knee Inventory item: [employer] Legion 15mm 160mm Press Fit Knee Stem Femoral [id number] Model/Cat number: [id number] Serial number: 0 Plate Printer: [employer] Lot number: [id number] As of 09/30/2019 Status: Implanted [employer] [id number] Legion 10mm Screw Knee 6 Wedge Femoral - S0 - [id number] -Implanted (Right) Knee Inventory item: [employer] Legion 10mm Screw Knee 6 Wedge Femoral [id number] Model/Cat number: [id number] Serial number: 0 Plate Printer: [employer] Lot number: [id number] As of 09/30/2019 Status: Implanted [employer] [id number] Legion Revision Knee Right 5 Baseplate Tibial - S0 - [id number] - Implanted (Right) Knee Inventory item: [employer] Legion Revision Knee Right 5 Baseplate Tibial [id number] Model/Cat number: [id number] Serial number: 0 Plate Printer: [employer] Lot number: [id number] Device identifier: [id number] Device identifier type: GS1 As of 09/30/2019 Status: Implanted [employer] [id number] Legion 15mm 160mm Press Fit Knee Stem Femoral - S0 - [id number] - Implanted (Right) Knee Inventory item: [employer] Legion 15mm 160mm Press Fit Knee Stem Femoral [id number] Model/Cat number: [id number] Serial number: 0 Plate Printer: [employer] Lot number: [id number] Device identifier: [id number] Device identifier type: GS1 As of 09/30/2019 Status: Implanted [facility] 5517-F-501 Triathlon Cruciate Retain Bead Knee Left 5 Component Femoral Pa - Sn/A - [id number] - Implanted (Left) Knee Inventory item: [employer] Triathlon Cruciate Retain Bead Knee Left 5 Component Femoral Pa 5517-F-501 Model/Cat number: [id number] Serial number: N/A Plate Printer: [employer] Lot number: [id number] Device identifier: [id number] Device identifier type: GS1 As of 10/17/2021 Status: Implanted [employer] 5536-B-600 Triathlon Knee 6 Baseplate Tibial Tritanium - Sn/A - [id number] - Implanted (Left) Knee Inventory item: [employer] Triathlon Knee 6 Baseplate Tibial Tritanium 5536-B-600 Model/Cat number: [id number] Serial number: N/A Plate Printer: [employer] Lot number: [id number] Device identifier: [id number] Device identifier type: GS1 As of 10/17/2021 Status: Implanted [employer] 8412-X-[id number] Insert Tibial Triathlon 6 H10mm Knee Bearing Condylar Stabilize Sterile - Sn/A - [id number] - Implanted (Left) Knee Inventory item: [employer] Insert Tibial Triathlon 6 H10mm Knee Bearing Condylar Stabilize Sterile 8923-Z-101-E Model/Cat number: [id number] Serial number: N/A Plate Printer: [employer] Lot number: [id number] Device identifier: [id number] Device identifier type: GS1 As of 10/17/2021 Status: Implanted Type Not Specified [facility] 6197-9-010 Simplex P Full Dose Radiopaque Preblend Cement Bone Tobramycin - [id number] - Implanted (Right) Knee Inventory item: [employer] Simplex P Full Dose Radiopaque Preblend Cement Bone Utnzvznvrs8665-9-664 Model/Cat number: [id number] Plate Printer: [employer] Device identifier: [id number] Device identifier type: GS1 As of 09/30/2019 Status: Implanted SKIN Piercings Remaining: No Wound (LDAs) Type of Wound (LDA): (Pt denies) SCREENINGS Pain Assessment: 0-10 Pain Score: 6 Patient's Stated Pain Goal: No pain Pain Type: Chronic pain Chronic Pain Precipitating Factors: At Rest Chronic Pain Alleviating Factors: Medication Pain Location: Back (Lumbar) STOP-Bang Total Score: 3 U[place]a Fall Risk Score (Retired): 56 Joni index score: 90 Have you ever been in or are you currently in a harmful physical or emotional relationship or is someone making you feel afraid or unsafe?: Denies AD8 Dementia Score: 0 Short Blessed Total Score: 3 NUTRITION VELEZ Nutrition and Function History Questionnaire Is BMI < 20?: No Have you lost any weight in the past 6 months without trying? : No Have you eaten < 50% of normal in the past 2 weeks without trying?: Yes Have you experienced any of the following in the past month?: Feel full quickly Symptom Score: 1 Has your activity level decreased over the past 6 months or do you use an assistive device such as a walker, cane, or wheelchair?: Yes Total Score: 3 PATIENT CARE PLANNING Advance Directives (For Healthcare) Have you reviewed your Advance Directive and is it valid for this stay?: Yes Advance Directive: Patient has advance directive, copy in chart Communication/Tobacco Grader Needs Communication Needs: Glasses Assistive Devices/DME: Eyeglasses, Walker, Cane Hearing - Right Ear: Functional Hearing - Left Ear: Functional Discharge Planning Type of Residence: Private residence Living Arrangements: Spouse/significant other Support Systems: Spouse/significant other Assistance Needed: to be with pt DOS Patient expects to be discharged to:: Private residence [employer]OD [employer]M BU[employer] NO ADDITIONAL COMMENTS/ FOLLOW UP BING GUIDE * Pre-Procedure Instructions - Annelise Escalante RN - 10/11/2023 10:30 AM CST CENTER FOR PREOPERATIVE ASSESSMENT AND PLANNING (CPAP) PRE-SURGICAL NURSING INSTRUCTIONS Clinic Assessment General Information Discussed with Patient: Surgery location provided to patient. Arrival time and surgical time will be provided to the patient by their surgeon. You should wear clothing that is clean, loose, comfortable and easy to get in and out of on the dayof surgery. Remove nail coverings, artificial nails and nail english prior to the day of surgery. You should leave your valuables and any jewelry at home. No metal or piercings are allowed in the operating room. You should bring your insurance card, a photo ID (example: Expert Witness's License) and a method of payment for [...] copy is already in your Epic Chart. PREVENTING INFECTION (DECOLONIZATION): Decolonization is the use of a topical antiseptic soap and sometimes a nasal ointment to remove bacteria (germs) from the skin's surface. Antiseptic soap: Chlorhexidine gluconate or CHG (brand name: Hibiclens??) Before surgery, your entire body must be thoroughly cleaned. CHG helps to reduce the bacteria on your skin. You may be given one or more bottles of CHG or you may be asked to obtain from your preferred pharmacy. Be sure to ask your pharmacist if you need help finding this product. Nasal ointment: Mupirocin (brand name: Bactroban)- This will only be ordered for the 5 Day Bathing Protocol. Your surgeon may also prescribe a topical ointment that is rubbed inside each of the nostrils to reduce the bacteria in your nose. Mupirocin ointment requires a prescription. If needed, it will be prescribed by your surgeon and obtained from your preferred pharmacy. SHOWERING WITH ANTISEPTIC SOAP (CHG) What You Need For Each Shower 60 mL (?? cup) of CHG 2 clean washcloths Below is the Pre-Surgical Bathing Protocol you should follow for your surgery. If your surgeon provides you different bathing instructions, please follow your surgeon's orders. 5 Day CHG Bathing & Nasal Ointment (Mupirocin) Protocol The following bathing instructions were discussed with the patient. Patient provided detailed scrubinstructions via A Guide for Patients Having Surgery: Your Pathway to Excellent Care, pages 7-10. Patients may also access the guide via the web link: [email or web address]. Patient stated understanding of the bathing instructions. Other Important Handouts/Education Discussed with Patient: Guide for Patients Having Surgery: Your Pathway to Excellent Care. Reviewed and provided document to patient. Patient stated understanding. Nutrition Education Handout, Fuel Up For Surgery. Reviewed and provided document to patient. Patient stated understanding. Fall preventions/risk education provided. Reviewed and provided below document(s) to patient. Patient stated understanding. Safety Tips for Preventing Falls in the Hospital and at Home. Travel/Exposure Screening: Travel Screening Have you traveled [...] are exposed to a COVID positive person. All patients should read below section: COVID 19 Updates & Visitor Policy: Please access [email or web address] for the most updated information. Information on [facility] the [facility]: Please view [email or web address] (Patient & Visitor Information) for additional details regarding Advanced Directive forms, AWARE, directions, parking information, lodging, Internet access, dining and more. For MyChart information, to activate account or password recovery, please go to [email or web address] or call [phone] (toll-free: [phone]), Sun- Sunday 8am-5pm. Information for Suicide Prevention: National Suicide Prevention Lifeline (7-734-199-FVHR (9041)). Surgery Times: For patients having surgery @ [facility] or [facility] ([facility]), if your surgeon's office has not notified you of your surgery time by NOON THE BUSINESS DAY BEFORE your surgery, please call [phone] and ask for your surgeon's office Dr. Vu BING GUIDE * Pre-Procedure Instructions - Marychuy Sweet NP - 10/11/2023 10:30 AM CLIMBING GUIDE Center for Preoperative Assessment and Planning CPAP Clinic Location: [facility] The night before your surgery: * Do not eat anything after midnight the night before your procedure. and * Do not smoke or use tobacco products after midnight the night before surgery. It is best to stop smoking now to improve your health. The morning of your surgery: * You may have clear liquids on your surgery day. You must stop drinking two hours before you arrive to the surgery facility. Acceptable clear liquids include water, clear sports drinks, black coffee, or clear soda. DO NOT drink any [...] with you on the day of surgery. * If you use home oxygen, bring your portable oxygen tank with you on the day of surgery * If you are going to be admitted after surgery at [facility], COVID testing may be performed on the day of surgery, even if you are up to date on your COVID-19 vaccine. * If having surgery at [facility], you may want to bring a credit card if you want to use our Mobile Pharmacy for your discharge medications. Mobile pharmacy is not available at [facility], the [facility], or the [place] [facility]. If you have Diabetes: * You may also need less insulin than usual. * If your blood sugar is low before you come to the hospital, drink a small amount of sugar water or clear juice like apple or cranberry juice. DO NOT drink orange or pineapple juice. These are not clear liquids. * If you take insulin be sure to read the Medicine Instructions. * Please call your surgeon and/or the CPAP Clinic if you have any questions. Instructions For Your Medications: Pre-Surgery Instructions: Medication Instructions acyclovir (ZOVIRAX) 400 mg tablet Take morning of surgery cephalexin (KEFLEX) 500 mg capsule Take morning of surgery cetirizine (ZyrTEC) 10 mg tablet Don't take on day of surgery cholecalciferol (VITAMIN D-3) 5,000 unit capsule Stop taking 1 week prior to surgery coenzyme Q10 100 mg capsule Stop taking 1 week prior to surgery DILT-XR 240 mg 24 hr capsule Take morning of surgery fish,bora,flax [id number] 400-400-400 mg capsule Stop taking 1 week prior to surgery irbesartan (AVAPRO) 300 mg tablet Don't take on day of surgery Mounjaro 10 mg/0.5 mL pen injector Stop taking 1 week prior to surgery naproxen sodium 220 mg capsule Stop taking 5 days prior to surgery omeprazole (PriLOSEC) 20 mg capsule Take morning of surgery General Instructions For Medications: * Stop all [...] E, Herbal medicines, Diet Pills If you take aspirin, do not stop taking it unless you were instructed to do so. If you have pain, you may take [...] with COVID-19. You test positive for COVID-19. BING GUIDE documented in this encounter Plan of Treatment Not on file documented as of this encounter Procedures Procedure Name Priority Date/Time Associated Diagnosis Comments TYPE AND SCREEN 14 DAY STAT 10/11/2023 12:18 PM CLIMBING GUIDE Preoperative testing EGFR Routine 10/11/2023 12:18 PM CLIMBING GUIDE Lumbar radiculopathy DIFFERENTIAL AUTO Routine 10/11/2023 12: 18 PM CLIMBING GUIDE Lumbar radiculopathy CPAP APTT ALGORITHM Routine 10/11/2023 1 2:18 PM CLIMBING GUIDE Preoperative testing URINALYSIS AND REFLEX TO MICROSCOPIC AND CULTURE Routine 10/11/2023 12:18 PM CLIMBING GUIDE Lumbar radiculopathy CBC WITH AUTO DIFFERENTIAL Routine 10/11/2023 12:18 PM CLIMBING GUIDE Lumbar radiculopathy VITAMIN D 25 HYDROXY Routine 10/11/2023 12:18 PM CLIMBING GUIDE Lumbar radiculopathy Vitamin D deficiency URINALYSIS, MICROSCOPIC ONLY Routine 10/11/2023 12:18 PM CLIMBING GUIDE Lumbar radiculopathy PROTIME-INR Routine 10/11/2023 12:18 PM CLIMBING GUIDE Lumbar radiculopathy Anticoagulation management encounter URINE CULTURE Routine 10/11/2023 12:18 PM CLIMBING GUIDE COMPREHENSIVE METABOLIC PANEL Routine 10/11/2023 12:18 PM CLIMBING GUIDE Lumbar radiculopathy POCT HEMOGLOBIN A1C Routine 10/11/2023 1 1:43 AM CLIMBING GUIDE documented in this encounter Results * eGFR (10/11/2023 12:18 PM CLIMBING GUIDE) [facility] eGFR 73 >=60 mL/min/1. 73 m2 [facility] [...] interpretive data was last reviewed 2021. Blood 10/11/2023 12:1 8 PM CLIMBING GUIDE 10/11/2023 12:55 PM CLIMBING GUIDE Marcial Vu Jr., MD LAB BLOOD ORDERABLE S Final Result [facility] Department [place] [address] * (ABNORMAL) Urine culture Urine, clean voided (10/11/2023 12:18 PM CLIMBING GUIDE) Report Final Report: Greater than or equal to 100,000 colonies/mL of Escherichia coli Greater than or equal to 100,000 colonies/mL of Escherichia coli #2 (.) [facility] Organism ESCHERICHIA [facility]I [facility] Organism ESCHERICHIA COLI [facility] Urine, clean voided 10/11/2023 12:18 PM CLIMBING GUIDE 10/11/2023 2:33 PM CLIMBING GUIDE Narrative [facility] - 10/14/2023 12:44 PM CLIMBING GUIDE Urine culture reflexed based upon urinalysis results. Testing performed by [facility] ([phone]) Organism Antibiotic Method Susceptibility Escherichia coli Ampicillin INTERPRETATION Susceptible Escherichia coli Cefazolin INTERPRETATION Susceptible Escherichia coli Nitrofurantoin INTERPRETATION Susceptible Escherichia coli Gentamicin INTERPRETATION Susceptible Escherichia coli Trimethoprim with Sulfamethoxazole IN TERPRETATION Susceptible Escherichia coli Meropenem INTERPRETATION Susceptible Escherichia coli Cefepime INTERPRETATION Susceptible Escherichia coli Ciprofloxacin INTERPRETATION Susceptible Escherichia coli Ceftazidime INTERPRETATION Susceptible Escherichia coli Ceftriaxone INTERPRETATION Susceptible Escherichia coli Piperacillin/Tazobactam INTERPRETATIO N Susceptible Escherichia coli Cephalexin INTERPRETATION Susceptible Escherichia coli Cefuroxime-axetil INTERPRETATION Susceptible Escherichia coli Cefdinir INTERPRETATION Susceptible Escherichia coli Ampicillin INTERPRETATION Susceptible Escherichia coli Cefazolin INTERPRETATION Susceptible Escherichia coli Nitrofurantoin INTERPRETATION Susceptible Escherichia coli Gentamicin INTERPRETATION Susceptible Escherichia coli Trimethoprim with Sulfamethoxazole IN TERPRETATION Susceptible Escherichia coli Meropenem INTERPRETATION Susceptible Escherichia coli Cefepime INTERPRETATION Susceptible Escherichia coli Ciprofloxacin INTERPRETATION Susceptible Escherichia coli Ceftazidime INTERPRETATION Susceptible Escherichia coli Ceftriaxone INTERPRETATION Susceptible Escherichia coli Piperacillin/Tazobactam INTERPRETATIO N Susceptible Escherichia coli Cephalexin INTERPRETATION Susceptible Escherichia coli Cefuroxime-axetil INTERPRETATION Susceptible Escherichia coli Cefdinir INTERPRETATION Susceptible Marcial Vu Jr., MD LAB MICROBIOLOGY - GENERAL ORDERABLES Final Result Performing Organization Address [facility] Co de Phone Number [facility] Department [place] [address] * (ABNORMAL) Urinalysis, microscopic only (10/11/2023 12:18 PM CLIMBING GUIDE) WBC, ur >50(A) 0 - 5 /HPF [facility] RBC, ur 0-2 0 - 2 /HPF [facility] Bacteria, ur 4+(A) [facility] Culture Reflex Comment Reflex to urine culture will be performed. [facility] Urine, clean voided 10/11/2023 12:18 PM CLIMBING GUIDE 10/11/2023 12:50 PM CLIMBING GUIDE Marcial Vu Jr., MD LAB URINE ORDERABLE S Final Result Performing Organization Address [facility] Co de Phone Number [facility] Department [place] [address] * (ABNORMAL) Differential, auto (10/11/2023 12:18 PM CLIMBING GUIDE) Neutrophil abs 12.7(H) 1.5 - 6.5 K/cumm [facility] Imm gran abs 0.3(H) 0.0 - 0.1 K/cumm [facility] Lymphocyte abs 0.8 0.8 - 3.3 K/cumm [facility] Monocyte abs 1.3(H) 0.2 - 0.8 K/cumm [facility] Eosinophil abs 0.0 0.0 - 0.5 K/cumm [facility] Basophil abs 0.0 0.0 - 0.1 K/cumm [facility] Neutrophil pct 83.8 % [facility] Comment: Interpretive Data Percent cell count reference ranges are not reported, since discordance with absolute values may lead to misinterpretation of CBC data. Current Interpretive Data was last revised on 2018. Imm gran pct 1.7 % [facility] Comment: Interpretive Data Percent cell count reference ranges are not reported, since discordance with absolute values may lead to misinterpretation of CBC data. Current Interpretive Data was last revised on 2018. Lymphocyte pct 5.5 % [facility] Comment: Interpretive Data Percent cell count reference ranges are not reported, since discordance with absolute values may lead to misinterpretation of CBC data. Current Interpretive Data was last revised on 2018. Monocyte pct 8.5 % [facility] Comment: Interpretive Data Percent cell count reference ranges are not reported, since discordance with absolute values may lead to misinterpretation of CBC data. Current Interpretive Data was last revised on 2018. Eosinophil pct 0.2 % [facility] Comment: Interpretive Data Percent cell count reference ranges are not reported, since discordance with absolute values may lead to misinterpretation of CBC data. Current Interpretive Data was last revised on 2018. Basophil pct 0.3 % [facility] Comment: Interpretive Data Percent cell count reference ranges are not reported, since discordance with absolute values may lead to misinterpretation of CBC data. Current Interpretive Data was last revised on 2018. Blood 10/11/2023 12:1 8 PM CLIMBING GUIDE 10/11/2023 12:55 PM CLIMBING GUIDE us Marcial Vu Jr., MD LAB BLOOD ORDERABLE S Final Result [facility] Department [place] [address] * (ABNORMAL) CBC with auto differential (10/11/2023 12:18 PM CLIMBING GUIDE) [facility] WBC 15.2(H) 3.8 - 9.9 K/cumm [facility] Hgb 14.9 13.0 - 17.5 g/dL [facility] Comment: Interpretive Data A reference range for this assay has not been established for patients with an unknown legal sex. Please refer to the laboratory test catalog for established sex-specific reference intervals. Current interpretive data was last revised on 2023. Hct 42.6 38.9 - 50.3 % [facility] Comment: Interpretive Data A reference range for this assay has not been established for patients with an unknown legal sex. Please refer to the laboratory test catalog for established sex-specific reference intervals. Current interpretive data was last revised on 2023. Plt 148(L) 150 - 400 K/cumm [facility] MPV 11.5 9.1 - 12.3 fL [facility] RBC 4.53 4.30 - 5.80 M/cumm [facility] Comment: Interpretive Data A reference range for this assay has not been established for patients with an unknown legal sex. Please refer to the laboratory test catalog for established sex-specific reference intervals. Current interpretive data was last revised on 2023. MCV 94.0 81.3 - 96.4 fL [facility] MCH 32.9 27.1 - 33.3 pg [facility] MCHC 35.0 32.3 - 35.7 g/dL [facility] RDW CV 12.4 11.1 - 14.9 % [facility] RDW SD 43.0 35.7 - 48.1 fL [facility] NRBC abs 0.00 0.00 - 0.01 K/cumm [facility] Blood 10/11/2023 12:1 8 PM CLIMBING GUIDE 10/11/2023 12:55 PM CLIMBING GUIDE us Marcial Vu Jr., MD LAB BLOOD ORDERABLE S Final Result [facility] Department [place] [address] * (ABNORMAL) Vitamin D 25 hydroxy (10/11/2023 12:18 PM CLIMBING GUIDE) Pathologist [facility] Vitamin D 25-OH 96(H) 30 - 80 ng/mL [facility] Blood 10/11/2023 12:1 8 PM CLIMBING GUIDE 10/11/2023 12:55 PM CLIMBING GUIDE Marcial Vu Jr., MD LAB BLOOD ORDERABLE S Final Result Performing Organization Address [facility] de Phone Number [facility] Department [place] [address] * Protime-INR (10/11/2023 12:18 PM CLIMBING GUIDE) [facility] PT 12.6 10.3 - 13.7 sec [facility] INR 1.11 0.90 - 1.20 [facility] Comment: Interpretive data Oral anticoagulant therapeutic ranges: Venous thromboembolism prophylaxis or treatment: 2.0-3.0 CARDIOLOGY Standard range: 2.0-3.0 High-intensity range: 2.5-3.5 Refer to indication-specific guidelines for appropriate target ranges for prosthetic heart valve replacement. Current interpretive data was last revised on 2019. Blood 10/11/2023 12:1 8 PM CLIMBING GUIDE 10/11/2023 12:55 PM CLIMBING GUIDE Marcial Vu Jr., MD LAB BLOOD ORDERABLE S Final Result Performing Organization Address [facility] de Phone Number [facility] Department [place] [address] * (ABNORMAL) Urinalysis reflex to microscopic and culture Urine, clean voided (10/11/2023 12:18 PM CLIMBING GUIDE) Pathologist [facility] Color, ur Ling Yellow [facility] Clarity, ur Turbid(A) Clear [facility] Specific gravity, ur 1.020 1.003 - 1.030 [facility] pH, urine 6.0 [facility] Comment: Interpretive Data ? Urine pH is affected by diet, medications, systemic acid-base disturbances, and renal tubular function. ??pH may affect urinary stone formation. ??For example, urine pH below 6.0 may help reduce the tendency for calcium phosphate stones and pH greater than 6.0 may reduce the tendency for uric acid stone formation. Source: [facility] Current Interpretive Data was last revised on 2017 Protein, ur ql 3+(A) Negative [facility] Glucose, ur ql Negative Negative [facility] Ketones, ur 1+(A) Negative [facility] Bilirubin, ur Negative Negative [facility] Blood, ur 2+(A) Negative [facility] Urobilinogen, ur 2.0(A) <2.0 mg/dL [facility] Nitrite, ur Negative Negative [facility] Leukocyte esterase, ur 3+(A) Negative [facility] UA reflex comment Reflex to microscopic UA will be performed. [facility] Urine, clean voided 10/11/2023 12:18 PM CLIMBING GUIDE 10/11/2023 12:50 PM CLIMBING GUIDE Marcial Vu Jr., MD LAB MICROBIOLOGY - GENERAL ORDERABLES Final Result [facility] Department [place] [address] * (ABNORMAL) Comprehensive metabolic panel (10/11/2023 12:18 PM CLIMBING GUIDE) Sodium 132(L) 135 - 145 mmol/L [facility] Potassium, pl 3.3 3.3 - 4.9 mmol/L [facility] Chloride 94(L) 97 - 110 mmol/L [facility] CO2 26 22 - 32 mmol/L [facility] Anion gap 12 2 - 15 mmol/L [facility] BUN 23 6 - 25 mg/dL [facility] Creatinine 1.08 0.80 - 1.30 mg/dL [facility] Glucose 138 70 - 199 mg/dL [facility] [...] interpretive data was last revised 2022. Calcium 9.4 8.5 - 10.3 mg/dL [facility] Bilirubin, total 1.1 0.1 - 1.2 mg/dL [facility] Protein, pl 7.6 6.5 - 8.5 g/dL [facility] Albumin 4.1 3.5 - 5.0 g/dL [facility] Alk phos 120 40 - 130 Units/L [facility] ALT 20 7 - 55 Units/L [facility] AST 24 10 - 50 Units/L [facility] Blood 10/11/2023 12:1 8 PM CLIMBING GUIDE 10/11/2023 12:55 PM CLIMBING GUIDE us Marcial Vu Jr., MD LAB BLOOD ORDERABLE S Final Result Performing Organization Address City/[facility]/ZIP Co de Phone Number [facility] Department [place] [address] * CPAP aPTT algorithm (10/11/2023 12:18 PM CLIMBING GUIDE) aPTT 33 28 - 38 sec [facility] Comment: Interpretive Data Heparin therapeutic range: 66.0 - 100.0 seconds. Range based on correlation with therapeutic heparin activity range of 0.3 - 0.7 Units/mL. Current interpretive data was last revised on 2023. Blood 10/11/2023 12:1 8 PM CLIMBING GUIDE 10/11/2023 12:18 PM CLIMBING GUIDE us Marychuy Sweet NP LAB BLOOD ORDERABLES Final Result Performing Organization Address City/[facility]/ZIP Co de Phone Number [facility] [place] [address] * TYPE AND SCREEN 14 DAY (10/11/2023 12:18 PM CLIMBING GUIDE) Jigna, indirect Negative ABO Rh O Positive [facility] Blood 10/11/2023 12:1 8 PM CLIMBING GUIDE 10/11/2023 12:59 PM CLIMBING GUIDE Narrative [facility] - 10/11/2023 1:59 PM CLIMBING GUIDE Has the patient had Daratumumab or Isatuximab in the past 6 months?->No Is this test being ordered in advance for a procedure?->Yes Expected date of procedure:->10/16/23 Has the patient been transfused in the past 3 months?->No Marychuy Sweet NP LAB BLOOD BANK TEST ORDERA BLES Final Result Performing Organization Address [facility] [place] [address] * POCT hemoglobin A1c (10/11/2023 11:43 AM CLIMBING GUIDE) Hgb A1C, POC 5.5 4.0 - 5.6 % [facility] Est Average Gluc POC 111 mg/dL [facility] Comment: The ADA recommends reporting an estimated Average Glucose (eAG) with all Hemoglobin A1c results using the equation derived from a study of 507 normal and diabetic adults. ??Minority populations were underrepresented and children were not included. ?? (Diabetes Care 31:3979-0137, 2008). ??The eAG is not equivalent to a fasting glucose. Blood 10/11/2023 11:4 3 AM CLIMBING GUIDE 10/11/2023 11:43 AM CLIMBING GUIDE Marcial Vu Jr., MD POINT OF CARE TEST ORDERABLES Final Result Performing Organization Address [facility] [place] [address] documented in this encounter Visit Diagnoses Diagnosis Preoperative testing- Primary Unspecified pre-operative examination Lumbar radiculopathy Thoracic or lumbosacral neuritis or radiculitis, unspecified Anticoagulation management encounter Encounter for therapeutic drug monitoring Vitamin D deficiency documented in this encounter Discontinued Medications Medication Sig Discontinue Reason Start Date End Da te cephalexin (KEFLEX) 500 mg capsuleIndications:Over active bladder,Urgency incontinence Take one capsule by mouth 30 minutes before procedure. Therapy completed 04/17/2023 10/11/2023 loratadine (CLARITIN) 10 mg tabletIndications:Aller gic Rhinitis Take 1 tablet (10 mg total) by mouth daily as needed for allergies Therapy completed 10/11/2023 peg [id number] in 1-0.36-0.2 % dropsIndications:Dry Eye Administer 1 drop into both eyes once daily as needed Therapy completed 10/06/2019 10/11/2023 sildenafil, antihypertensive, (REVATIO) 20 mg tabletIndications:ED Take 1 tablet (20 mg total) by mouth as needed Therapy completed 10/11/2023 solifenacin (VESIcare) 5 mg tabletIndications:Overa ctive bladder,Prostate cancer (HCC) Take 1 tablet (5 mg total) by mouth daily Therapy completed 03/15/2023 10/11/2023 documented as of this encounter Historical Medications * This list may reflect changes made after this encounter. naproxen sodium 220 mg capsuleIndication s:Pain Take 1 tablet by mouth 2 (two) times a day as needed (Pain) 10/30/2023 added in this encounter Care Teams Fha Underwriter Relationship Specialty Start Date End Date Rl Medina DO [address] [place] [address] PCP - General 08/09/17 05/25/24 documented as of this encounter
--- OUTSIDE RECORDS SUMMARY | 2024-11-05 19:27 | XMS_ITS | Encounter Summary ---
Author Organization [facility] Address [address] [place] [address] Phone Care Team Providers Care Traveler Changer Name Role Phone Rl Medina DO Primary Care Provider Reason for Referral * MRI/CAT/PET Scan (Routine) - Closed Specialty Diagnoses / Procedures Referred By Manisha t Referred To Contact Radiology Diagnoses Lumbar radiculopathy Procedures CT Lumbar Spine WO Contrast CT Lumbar Spine WO Contrast CT Lumbar Spine WO Contrast CT Lumbar Spine WO Contrast Marcial Vu Jr., MD [address] [place] [address] Phone: tel: fax: [place] [phone] [place] [address] Referral ID Status Reason Start Date Expiration Date Visits Re quested Visits Authorized [id number] Closed 10/04/2023 11/02/2024 1 1 NCE ANALYST Reason for Visit * Reason Onset Date Comments Follow-up 09/24/2023 Encounter Details Date Type Department Care Team (Late st Contact Info) Description 09/24/2023 Telephone [facility] Orthopaedic Surgery [address] [place] [address] Medical Office Building [address] [place] [address] Marcial Vu Jr., MD [address] [place] [address] Follow-up Social History Tobacco Use Types Packs/Day Years [...] on file 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 SCIENCE ANALYST Gender Identity Not on file Sexual Orientation Not on file 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 Informed [place] pt will most likely obtain CT at a [facility] facility, but I will call them back if the plan changes. Tried to schedule CT on Sunday at [facility], no openings available. Spoke with pt today and informed him I will schedule his pre-op imaging/ appts after his surgical plan and date is finalized. This will be discussed with pt on Sunday. Pt in agreement with plan. NCE ANALYST * Telephone Encounter - Galina Franco RN - 10/04/2023 3:59 PM CST Informed pt Iwill update him again once I hear back from [facility]. Pt in agreement with plan. NCE ANALYST NCE ANALYST * Addendum Note - Galina Franco RN - 10/04/2023 1:54 PM CSTAddended by: GALINA FRANCO on: 10/04/2023 01:54 PM Modules accepted: Orders NCE ANALYST * Telephone Encounter - Galina Franco RN - 10/04/2023 1:42 PM CST Spoke with pt today informing him Dr. Vu still would like for pt to obtain CT Lumbar Spine robot protocol. Pt requested for it to be completed at [facility], which is local facility. Informed pt that Dr. Vu is requesting special cuts for this CT so I am unsure if [facility] canobtain specific images that Dr. Vu is requesting. Informed pt I will check with [facility] but there is a chance that he will need to redo imaging study if improperly done at OSH. Pt requested I try to facilitate at OSH still. Will contact pt again once I have more insight. Spoke with CT radiology at [facility] to obtain protocol for CT Lumbar Spine WO Robot Protocol. Tech told me the robot protocol is thinner cuts, which is 1x1 instead of typical 2x2. Spoke with [place],test technician at [facility], to see if her facility could perform CT robot protocol. [place] requested CT order be faxed to her, so she can further evaluate possibility of study being performed there. [place] will call me back with an answer once order is properly reviewed. Order faxed to [phone] NCE ANALYST * Telephone Encounter - Galina Franco RN - 10/02/2023 11:[address] Vu recommending pt come for clinic appt to discuss MRI results and to further discuss surgical options. Scheduled pt for clinic appt on Monday 10/08 at [facility]. Appt details provided to pt. NCE ANALYST * Telephone Encounter - Galina Franco RN - 09/26/2023 2:[address] Vu, pt can be scheduled for L4-5 MIS TLIF at [facility]. Pt will also need CT Lumbar spine with robot protocol and Dexa scan. Contacted pt to discuss options for surgery date at [facility] since robotwill be used for procedure. Pt stated he wants a laminectomy only and not fusion. Per OV note, Dr. Vu discussed laminectomy vs. L4-5 TLIF. Informed pt I will need to confirm surgical plan of laminectomy only with Dr. Vu. Additional imaging may not be needed pending surgical plan. Will contact pt once I hear back from Dr. Vu, either later today or Sunday if not due to the holiday. Pt will still plan to obtain MRI L spine on 10/01. Pt in agreement with plan. NCE ANALYST NCE ANALYST * Telephone Encounter - Galina Franco RN - 09/25/2023 4:29 PM CST Pt called today asking if he could be scheduled for surgery. Informed pt that Dr. Vu has not had yet an opportunity to review pt's imaging studies to confirm surgical plan, if indicated at this time. Dr. Vu has been in surgery today but I will contact him again today. I will reach out to pt tomorrow with an update and to schedule surgery, if appropriate. Pt's symptoms remain the same aswhen we spoke yesterday. Pt's main complaint is left left weakness at this time, requiring use of acane. Pt has no other concerns or progressive neurologic deficits. Pt states the injection from 09/21 helped his pain but not his weakness. Pt agreeable to a return call tomorrow. NCE ANALYST * Telephone Encounter - Galina Franco RN - 09/24/2023 1:40 PM CST Pt called c/o increased weakness in his LLE since ~ last Sun. Pt obtained left L4-5 Transforaminal Epidural Steroid Injection on 09/21, which pt states has helped his pain but still feels like his left leg is becoming weaker. Pt is interested in scheduling surgery ANSELMO after obtaining MRI on 10/01.Pt denies change or loss of bowel or bladder control, numbness or paresthesias in legs, perineal orperianal area, or new issues with gait instability. Pt began using a walker last week to provide additional stability but has not had any falls. Informed pt I will update Dr. Vu and contact him with his recommendations. Pt in agreement with plan. NCE ANALYST documented in this encounter Plan of Treatment Not on file documented as of this encounter Results * CT Lumbar Spine WO Contrast (10/11/2023 10:15 AM SCIENCE ANALYST) Anatomical Region Laterality Modality Spine N/A Computed Tomogra phy 10/11/2023 5:00 PM SCIENCE ANALYST Impressions 10/11/2023 5:05 PM SCIENCE ANALYST 1. Moderate degenerative changes of the lumbar [...] Zac Mcgarry M.D. Narrative 10/11/2023 5:05 PM SCIENCE ANALYST EXAMINATION: CT of the lumbar spine without [...] in this encounter Visit Diagnoses Diagnosis Lumbar radiculopathy- Primary Thoracic or lumbosacral neuritis or radiculitis, unspecified Lumbar radiculopathy Thoracic or lumbosacral neuritis or radiculitis, unspecified documented in this encounter Care Teams Traveler Changer Relationship Specialty Start Date End Date Rl Medina DO [address] [place] [address] PCP - General 08/09/17 05/25/24 documented as of this encounter
--- OUTSIDE RECORDS SUMMARY | 2024-11-05 19:27 | XMS_ITS | Encounter Summary ---
Author Organization [facility] Address [address] [place] [address] Care Team Providers Care Bending Roll Hand Name Role Phone Rl Medina DO Primary Care Provider [phone] Reason for Referral * MRI/CAT/PET Scan (Routine) - Closed Specialty Diagnoses / Procedures Referred By Contac t Referred To Contact Radiology Diagnoses Lumbar spine pain Lumbar radiculopathy Procedures MRI Lumbar Spine WWO Contrast Marcial Vu Jr., MD [address] [address] Phone: tel: fax: [place] [phone] [phone] Referral ID Status Reason Start Date Expiration Date Visits Re quested Visits Authorized [id number] Closed 09/13/2023 10/12/2024 1 1 RMATION TECHNOLOGY INTERNSHIP Reason for Visit * MRI/CAT/PET Scan (Routine) - Closed Specialty Diagnoses / Procedures Referred By Contac t Referred To Contact Radiology Diagnoses Lumbar spine pain Lumbar radiculopathy Procedures MRI Lumbar Spine WWO Contrast Marcial Vu Jr., MD [address], [place] [address] Phone: tel: fax: [facility] [address] [address] [phone] Referral ID Status Reason Start Date Expiration Date Visits Re quested Visits Authorized [id number] Closed 09/13/2023 10/12/2024 1 1 Encounter Details Date Type Department Care Team (Latest Contact Info) Description 10/01/2023 2:38 PM INFORMATION TECHNOLOGY INTERNSHIP - 10/01/2023 11:59 PM INFORMATION TECHNOLOGY INTERNSHIP Hospital Encounter [facility] [id number] [phone] Lumbar spine pain; Lumbar radiculopathy Discharge Disposition: Discharge to home [...] on file 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 INFORMATION TECHNOLOGY INTERNSHIP Gender Identity Not on file Sexual Orientation Not on file 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 Not on file Not [...] 1 tablet (10 mg total) by mouth car hopper before breakfast 4 cholecalciferol (VITAMIN D-3) 5,000 unit capsuleIndication s:Vitamin D Deficiency Take 1 capsule (5,000 Units total) by mouth every morning 4 coenzyme Q10 100 mg capsule Take 1 capsule (100 mg total) by mouth car hopper before breakfast 4 cyclobenzaprine (FLEXERIL) 10 mg tablet Take 1 tablet (10 mg total) by mouth 3 (three) times a day as needed 08/19/2023 3 DILT-XR 240 mg 24 hr capsuleIndication s:hypertension Take 1 capsule (240 mg total) by mouth 2 (two) times a day 0 05/12/2019 4 fish,bora,flax oils-om3,6,9no1 400-400-400 mg capsuleIndication s:Supplement Take 1 tablet by mouth car hopper before breakfast 4 HYDROcodone-aceta minophen (NORCO) 5-325 [...] Procedure Name Priority Date/Time Associated Diagnosis Comments MRI LUMBAR SPINE W WO CONTRAST Schedule Routine, Read Routine (OP Routine) 10/01/2023 3:29 PM INFORMATION TECHNOLOGY INTERNSHIP Lumbar spine pain Lumbar radiculopathy documented in this encounter Results * MRI Lumbar Spine WWO Contrast (10/01/2023 3:29 PM INFORMATION TECHNOLOGY INTERNSH[employer]) Anatomical Region Laterality Modality Spine N/A Magnetic Resonan ce 10/01/2023 4:11 PM INFORMATION TECHNOLOGY INTERNSHIP Impressions 10/01/2023 4:11 PM INFORMATION TECHNOLOGY INTERNSHIP Moderate degenerative changes of the lumbar spine, [...] Zac Mcgarry M.D. Narrative 10/01/2023 4:11 PM INFORMATION TECHNOLOGY INTERNSHIP EXAMINATION: Magnetic resonance imaging (MRI) of the [...] Mcgarry M.D. Marcial Vu Jr., MD IM MRI PROCEDURES Final Result documented in this encounter Visit Diagnoses Diagnosis Lumbar spine pain Lumbar radiculopathy Thoracic or lumbosacral neuritis or radiculitis, unspecified documented in this encounter Administered Medications Inactive Administered Medications - up to 3 most recent administrations Medication Order MAR Action Action Date Dose Rate Site gadoterate meglumine injection 20 mL 20 mL, intravenous, Once in imaging, contrast, Starting on 10/01/23 at 1529, For 1 dose Contrast Given 10/01/2023 3:32 PM INFORMATION TECHNOLOGY INTERNSHIP 16 mL documented in this encounter Orders Medications Ordered That Armando ht Not Have Been Administered Count Last Ordered Date First Ordered Date gadoterate meglumine injection 20 mL 1 09/06 documented in this encounter Care Teams Bending Roll Hand Relationship Specialty Start Date End Date Rl Medina DO [address] [place] [address] PCP - General 08/09/17 05/25/24 documented as of this encounter
--- OUTSIDE RECORDS SUMMARY | 2024-11-05 19:27 | XMS_ITS | Encounter Summary ---
Author Organization [facility] Address [address] [place] [address] Care Team Providers Care Flexographic Press Operator Name Role Phone Rl Medina DO Primary Care Provider [phone] Reason for Visit * MRI/CAT/PET Scan (Routine) - Closed Specialty Diagnoses / Procedures Referred By Contac t Referred To Contact Procedures Neuro MR Outside Reference Marcial Vu Jr., MD [address] [place] [address] [place] [address] Phone: tel: fax: Referral ID Status Reason Start Date Expiration Date Visits Re quested Visits Authorized [id number] Closed 09/13/2023 10/12/2024 1 1 Encounter Details Date Type Department Care Team (Latest Contact Info) Description 09/13/2023 12:56 PM KETTLE COORDINATOR - 09/13/2023 11:59 PM KETTLE COORDINATOR Hospital Encounter 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 Not on file Not [...] 1 tablet (10 mg total) by mouth automatic data processing planner before breakfast 4 cholecalciferol (VITAMIN D-3) 5,000 unit capsuleIndication s:Vitamin D Deficiency Take 1 capsule (5,000 Units total) by mouth every morning 4 coenzyme Q10 100 mg capsule Take 1 capsule (100 mg total) by mouth automatic data processing planner before breakfast 4 cyclobenzaprine (FLEXERIL) 10 mg tablet Take 1 tablet (10 mg total) by mouth 3 (three) times a day as needed 08/19/2023 3 DILT-XR 240 mg 24 hr capsuleIndication s:hypertension Take 1 capsule (240 mg total) by mouth 2 (two) times a day 0 05/12/2019 4 fish,bora,flax oils-om3,6,9no1 400-400-400 mg capsuleIndication s:Supplement Take 1 tablet by mouth automatic data processing planner before breakfast 4 HYDROcodone-aceta minophen (NORCO) 5-325 [...] Procedure Name Priority Date/Time Associated Diagnosis Comments NEURO MR OUTSIDE REFERENCE Routine 09/13/2023 12:56 PM KETTLE COORDINATOR documented in this encounter Results * Neuro MR Outside Reference (09/13/2023 12:56 PM KETTLE COORDINATOR) Impressions [facility] - 09/13/2023 12:56 PM KETTLE COORDINATOR These images are for Reference purposes only and have not been reviewed by [facility]. ??There will be no report generated by a [facility] Radiologist. Narrative [facility] - 09/13/2023 12:56 PM KETTLE COORDINATOR EXAMINATION: ??Images For Reference Purposes Only Marcial Vu Jr., MD IMG MRI PROCEDURES Final Result [facility] documented in this encounter Visit Diagnoses Not on filedocumented in this encounter Care Teams Flexographic Press Operator Relationship Specialty [place] [address] [place] [address] PCP - General 08/09/17 05/25/24 documented as of this encounter
--- OUTSIDE RECORDS SUMMARY | 2024-11-05 19:27 | XMS_ITS | Encounter Summary ---
Author Organization [facility] Address [address] [place] [address] Care Team Providers Care Lockstitch Shoulder Joiner Name Role Phone Rl Medina DO Primary Care Provider [phone] Encounter Details Date Type Department Care Team (Latest Contact Info) Description 03/15/2023 10:27 AM CDT - 03/15/2023 11:59 PM [place] [address] Overactive bladder; Prostate cancer (HCC); Other abnormal findings in urine Discharge Disposition: Discharge to home or self care Social History Tobacco Use Types Packs/Day Years Used Date Smoking Tobacco: Former Cigarettes 1 11 1979 Passive Smoke Exposure: Past Smokeless Tobacco: [...] on file 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 Gender Identity Not on file Sexual [...] r/t history knee replacements 10/09/2022 12/12/19 24 cholecalciferol (VITAMIN D-3) 5,000 unit capsuleIndications :Vitamin D Deficiency Take 1 capsule (5,000 Units total) by mouth every morning 12/10/19 24 DILT-XR 240 mg 24 hr capsuleIndications :hypertension Take 1 capsule (240 mg total) by mouth 2 (two) times a day 0 05/12/2019 12/10/19 24 irbesartan (AVAPRO) 300 mg tabletIndications: hypertension Take 1 tablet (300 mg total) by mouth every morning 08/10/2021 11/16/19 24 loratadine (CLARITIN) 10 mg tabletIndications: Allergic Rhinitis Take 1 tablet (10 mg total) by mouth daily as needed for allergies 10/11/20 23 mirabegron ER (MYRBETRIQ) 25 mg tablet extended release 24 hrIndications:Blad asia Hyperactivity Take 1 tablet (25 mg total) by mouth every morning 6 07/08/2019 09/13/20 23 omeprazole (PriLOSEC) 20 mg capsuleIndications :Treatment of Non-Bleeding Gastric Disorder,GERD Take 1 capsule (20 mg total) by mouth every morning 12/05/19 24 Ozempic 0.25 mg or 0.5 mg(2 mg/1.5 mL) pen injector injectionIndicatio ns:type 2 diabetes mellitus 0.5 mg Sunday09/21/2022 09/13/20 23 peg 273-xyyadwnmaneq-c lycerin 1-0.36-0.2 % dropsIndications:D ry Eye Administer 1 drop into both eyes once daily as needed 10/06/2019 10/11/20 23 polyethylene glycol (MIRALAX) 17 gram/dose powderIndications: constipation Take 17 g by mouth daily as needed 10/06/2019 10/08/20 23 sildenafil, antihypertensive, (REVATIO) 20 mg tabletIndications: ED Take 1 tablet (20 mg total) by mouth as needed 10/11/20 23 solifenacin (VESIcare) 5 mg tabletIndications: Overactive bladder,Prostate cancer (HCC) Take 1 tablet (5 mg total) by mouth daily 30 tablet 1 03/15/2023 10/11/20 23 documented as of this encounter Discharge Disposition Disposition Code Departure Means Destination Discharge to home or self care documented in this encounter Plan of Treatment Not on file documented as of this encounter Procedures Procedure Name Priority Date/Time Associated Diagnosis Comments URINE CULTURE Routine 03/15/2023 2:53 PM CDT Overactive bladder Prostate cancer (HCC) Other abnormal findings in urine documented in this encounter Results * Urine culture Urine, clean voided (03/15/2023 2:53 PM CDT) Report Final Report: Less than 100,000 colonies/mL (clinically insignificant growth based on current clinical standards) [facility] Organism (CLINICALLY INSIGNIFICANT GROWTH [facility] Urine, clean voided 03/15/2023 2:53 PM CDT 03/15/2023 3:53 PM CDT Narrative [facility] - 03/16/2023 6:38 PM CDT Testing performed by [facility] Microbiology Laboratory ([phone]) Pan Irene MD LAB MICROBIOLOGY - GENERAL ORD ERABLES Final Result [facility] [place] [address] documented in this encounter Visit Diagnoses Diagnosis Overactive bladder Hypertonicity of bladder Prostate cancer (HCC) Malignant neoplasm of prostate Other abnormal findings in urine documented in this encounter Care Teams Lockstitch Shoulder Joiner Relationship Specialty Start Date End Date Rl Medina DO [address] [place] [address] PCP - General 08/09/17 05/25/24 documented as of this encounter
--- OUTSIDE RECORDS SUMMARY | 2024-11-05 19:27 | XMS_ITS | Encounter Summary ---
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 [facility]. [facility], [address] If you have any financial questions please call [phone] (ONLY SHARE THIS IF PATIENT INQUIRES) If you need to cancel or reschedule your appointment please call [phone] Ask them the covid screening questions Have you had any respiratory symptoms including cough, shortness of breath/trouble breathing, fever, sudden loss of taste or smell, sore throat, or body aches? Yes [] No [x] Are you currently being tested for Covid-19? Yes [] No[x] Have you had any contact with a person known to be positive for Covid-19 or a person under investigation? Yes [] No [x] If the patient answers yes to any of the Covid -19 screening questions they need to be rescheduled for at least 14 days later. Inform patient that only 1 guest/visitor will be allowed into the clinic. If possible, come by themselves. Procedure Patients Are you on any blood thinners? Yes [] No [x] Are you currently on any antibiotics? Yes [] No [x] Have you had a fever in the last 7 days? Yes [] No [x] Are you diabetic? Yes [] No [x] In the last 2 weeks have you received any vaccinations including the COVID booster? Yes [] No [x] In the next 2 weeks do you plan on receiving any vaccinations including the COVID booster? Yes [] No [x] If the answer is yes to either question 5 or 6 then please connect the patient with the apartment coordinator at [phone]. If a direct number is requested by the patient please give them [phone]. ILITY STRATEGIST documented in this encounter Plan of Treatment Not on file documented as of this encounter Visit Diagnoses Not on filedocumented in this encounter Care Teams Drier Operator Head Relationship Specialty Start Date End Date Rl Medina DO [address] [place] [address] PCP - General 08/09/17 05/25/24 documented as of this encounter
--- OUTSIDE RECORDS SUMMARY | 2024-11-05 19:27 | XMS_ITS | Encounter Summary ---
Author Organization [facility] Address [address] [place] [address] Phone Care Team Providers Care Stopper Setter Name Role Phone Rl Medina DO Primary Care Provider Em Witt RN Unavailable [phone] Marlen Gray RN Unavailable No, Physician Primary Care Provider [phone] Encounter Details Date Type Department Care Team (Late st Contact Info) Description 07/06/2023 Documentation [facility] Urology [address] [facility] Medical Office Building [address] [place] [address] Pan Irene MD [address] [facility] [address] [place] [address] Social History Tobacco Use Types [...] on file 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 Gender Identity Not on file Sexual Orientation Not on file documented as of this encounter Plan of Treatment Not on file documented as of this encounter Visit Diagnoses Not on filedocumented in this encounter Care Teams Stopper Setter Relationship Specialty Start Date End Date Rl Medina DO [address] [place] [address] PCP - General 08/09/17 05/25/24 No, Physician PCP - General 05/26/24 Em Witt RN [phone] [address] [facility] Fiberglass Boat Finisher 10/30/23 10/30/23 Marlen Gray RN [address] [address] [facility] [employer]lass Boat Finisher 10/31/23 11/15/23 documented as of this encounter
--- OUTSIDE RECORDS SUMMARY | 2024-11-05 19:28 | XMS_ITS | Encounter Summary ---
Author Organization [facility] Address [address] [place] [address] Phone Care Team Providers Care Electro Mechanic Name Role Phone Rl Medina DO Primary Care Provider Reason for Visit * Reason Comments Pain Encounter Details Date Type Department Care Team (Late st Contact Info) Description 01/14/2020 11:45 AM CDT Office Visit [facility] Orthopaedic Surgery [address] [facility] 2nd [address] [place] [address] Fransisco Heard MD [address] [facility] [address] [place] [address] Aftercare following right knee joint replacement surgery (Primary Dx); Unilateral primary osteoarthritis, left knee Social History Tobacco Use Types Packs/Day Years Used Date Smoking Tobacco: Former Cigarettes 1 11 969 - 1979 Smokeless Tobacco: Never Alcohol Use Standard Drinks/Week Comments Yes 14 (1 standard drink = 0.6 oz pu re alcohol) social Sex and Gender Information Value Date Recorded Sex Assigned at Not on file 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 Patient seen today for routine follow up and is doing well. PAIN: None WALKING: Unlimited STAIRS: Normal SUPPORT: None PHYSICAL EXAM: Right Knee Knee Pain: None Skin Status: Previous incision healed Range of Motion Start of flexion: 0 End of flexion: 120 Extension la Flexion Contracture: 0 M/L Instability: Stable A/P Instability: Stable Alignment: normal Neurovascular status: Intact Effusion: none Pulses Intact: Yes Dependent Edema: No Neurological Status Intact: Yes Quadriceps Muscle Strength: Excellent Major complaint today is contralateral left knee pain. He has had injections in the past most recently a month ago by Pancho Moulton. He has severe pain that is relieved for. A time by injections. He wants to put off surgery till the end of the year. For plan injections every 3-4 months and discontinue injections were least 3 months prior to planned left knee replacement later in the year. REVIEW OF XRAYS/STUDIES: Radiographs ordered and show excellent component alignment and excellent fixation of his asymptomatic right total knee revision. He has severe degenerative arthritis of the left knee with complete loss of articular cartilage medially.. DX: The primary encounter diagnosis was Aftercare following right knee joint replacement surgery. Adiagnosis of Unilateral primary osteoarthritis, left knee was also pertinent to this visit. TREATMENT PLAN: The patient has been full weight bearing. Intermittent injections every 3-4 months prior to planned total knee replacement towards the end ofthe year. FOLLOW UP: He will return for routine follow up. documented in this encounter Plan of Treatment Not on file documented as of this encounter Visit Diagnoses Diagnosis Aftercare following right knee joint replacement surgery- Primary Unilateral primary osteoarthritis, left knee documented in this encounter Historical Medications * This list may reflect changes made after this encounter. Medication Sig Dispense Quantity Refills Last Filled Start D ate End Date irbesartan (AVAPRO) 150 mg tablet 250 mg 12/10/2019 09/28/2021 added in this encounter Care Teams Electro Mechanic Relationship Specialty Start Date End Date Rl Medina DO [address] [place] [address] PCP - General 08/09/17 05/25/24 documented as of this encounter
--- OUTSIDE RECORDS SUMMARY | 2024-11-05 19:28 | XMS_ITS | Encounter Summary ---
Author Organization [facility] Address [address] [place] [address] Phone Care Team Providers Care Microsoft Solutions Architect Name Role Phone Rl Medina DO Primary Care Provider Reason for Referral * (Routine) - Closed Specialty Diagnoses / Procedures Referred By Manisha gale Referred To Contact Diagnoses Right knee pain, unspecified chronicity Procedures Large Joint Injection: R knee Fransisco Heard MD Phone: tel: fax: [facility] (All Locations) Referral ID Status Reason Start Date Expiration Date Visits Re quested Visits Authorized [id number] Closed 09/24/2019 04/04/2021 1 1 OR JAVA SOFTWARE DEVELOPER Reason for Visit * Reason Comments Pain Encounter Details Date Type Department Care Team (Late st Contact Info) Description 09/24/2019 9:45 AM SENIOR JAVA SOFTWARE DEVELOPER Office Visit [facility] Orthopaedic Surgery [address] [facility] [address] [place] [address] Fransisco Heard MD [address] [place] [address] Right knee pain, unspecified chronicity (Primary Dx); Aftercare following right knee joint replacement surgery Social History Tobacco Use Types Packs/Day Years Used Date Smoking Tobacco: Former Cigarettes 1 11 [id number] Smokeless Tobacco: Never Alcohol Use Standard Drinks/Week Comments Yes 14 (1 standard drink = 0.6 oz pu re alcohol) social Sex and Gender Information Value Date Recorded Sex Assigned at Not on file 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 SENIOR JAVA SOFTWARE DEVELOPER Gender Identity Not on file Sexual Orientation Not on file documented as of this encounter Progress Notes * Fransisco Heard MD - 09/24/2019 9:45 AM CST Patient is scheduled for total knee revision next week. He has had a history of questionable infection in the past and is here for repeat aspiration including alpha defensin to rule out infection prior to proceeding with single stage revision procedure. Also SP repeat a sed rate and crp. OR JAVA SOFTWARE DEVELOPER * Fransisco Heard MD - 09/24/2019 9:45 AM CSTAssociated Order(s): Large Joint Injection: R knee Post-Procedure Diagnose(s): Right knee pain, unspecified chronicity Large Joint Injection: R knee Date/Time: 09/24/2019 12:27 PM Performed by: Fransisco Heard MD Authorized by: Fransisco Heard MD Large Joint Injection/Aspiration: Consent Given by: Patient Verbal consent obtained: Yes Supporting Documentation: Indications: Pain and joint swelling Procedure Details: Location: Knee Site: R knee Prep: patient was prepped using a clean technique Needle Size: 18 G Approach: Superior lateral Ultrasound guided: No Aspirate amount (mL): 15 Aspirate: Serous Lab: fluid sent for laboratory analysis Patient tolerance: Patient tolerated the procedure well with no immediate complications OR JAVA SOFTWARE DEVELOPER documented in this encounter Miscellaneous Notes * Addendum Note - Elizabeth Brown CLT - 09/24/2019 9:45 AM CSTAddended by: ELIZABETH BROWN on: 09/24/2019 04:06 PM Modules accepted: Orders OR JAVA SOFTWARE DEVELOPER * Addendum Note - Elizabeth Brown CLT - 09/24/2019 9:45 AM CSTAddended by: ELIZABETH BROWN on: 09/24/2019 04:07 PM Modules accepted: Orders OR JAVA SOFTWARE DEVELOPER documented in this encounter Plan of Treatment Scheduled Orders Name Type Priority Associated Diagnoses Orde r Schedule Synovial fluid, cell count Lab Routine Right knee pain, unspecified chronicity Aftercare following right knee joint replacement surgery Expected: 09/24/2019, Expires: 09/24/2020 documented as of this encounter Procedures Procedure Name Priority Date/Time Associated Diagnosis Comments SYNOVASURE Routine 10/09/2019 12:04 PM SENIOR JAVA SOFTWARE DEVELOPER Right knee pain, unspecified chronicity Aftercare following right knee joint replacement surgery UT ARTHROCENTESIS ASPIR&/INJ MAJOR JT/BURSA W/O US Routine 09/24/2019 9:45 AM SENIOR JAVA SOFTWARE DEVELOPER Right knee pain, unspecified chronicity documented in this encounter Results * Synovasure (10/09/2019 12:04 PM SENIOR JAVA SOFTWARE DEVELOPER) Synovial fluid us Frnasisco Heard MD LAB BODY FLUIDS AND STOOLS ORDERABLES Final Result EXTERNAL LAB * Aerobic and anaerobic culture and gram stain Aspirate Knee, right (09/24/2019 3:28 PM SENIOR JAVA SOFTWARE DEVELOPER) Direct Specimen Exam Stain: No polymorphonuclear leukocytes seen. No organisms seen. [facility] Report Final Report: No growth [facility] Aspirate (Knee, right) 09/24/2019 3:28 PM SENIOR JAVA SOFTWARE DEVELOPER 09/24/2019 5:09 PM SENIOR JAVA SOFTWARE DEVELOPER Narrative [facility] - 09/29/2019 10:53 AM SENIOR JAVA SOFTWARE DEVELOPER Testing performed by [facility] Microbiology Laboratory ([phone]) Specimens submitted from normally sterile body sites will have all bacterial morphotypes identified. ??Specimens that contain grossly mixed dominic and/or are from body sites that are not normally sterile will be examined for Staphylococcus aureus, Pseudomonas aeruginosa, beta-hemolytic strep, vancomycin-resistant Enterococcus, Bacteroides fragilis, Clostridium perfringens and fungus. ??If any of these are isolated, the organism will be reported. Current interpretive data was last revised on 2017. us Fransisco Heard MD LAB MICROBIOLOGY - GENERAL ORDERABLES Final Result Performing Organization Address [facility] Co de Phone Number [facility] Department [place] [address] * Crystal Analysis, Body Fluid (09/24/2019 3:28 PM SENIOR JAVA SOFTWARE DEVELOPER) Specimen type, fld Synovial [facility] Body site, fld RIGHT KNEE [facility] Crystals None Seen None Seen [facility] Fluid 09/24/2019 3:28 PM SENIOR JAVA SOFTWARE DEVELOPER 09/24/2019 4:09 PM SENIOR JAVA SOFTWARE DEVELOPER us Fransisco Heard MD LAB BODY FLUIDS AND STOOLS ORDERABLES Final Result Performing Organization Address [facility] de Phone Number [facility] Department [place] [address] * UT ARTHROCENTESIS ASPIR&/INJ MAJOR JT/BURSA W/O US (09/24/2019 9:45 AM SENIOR JAVA SOFTWARE DEVELOPER) Narrative Fransisco Heard MD - 09/24/2019 9:45 AM SENIOR JAVA SOFTWARE DEVELOPER Fransisco Heard MD ? 09/24/2019 12:28 PM Large Joint Injection: R knee Date/Time: 09/24/2019 12:27 PM Performed by: Fransisco Heard MD Authorized by: Fransisco Heard MD Large Joint Injection/Aspiration: ??Consent Given by: ??Patient ??Verbal consent obtained: Yes ?? Supporting Documentation: ??Indications: ??Pain and joint swelling Procedure Details: ??Location: ??Knee ??Site: ??R knee ??Prep: patient was prepped using a clean technique ?Needle Size: ??18 G ??Approach: ??Superior lateral ??Ultrasound guided: No ?Aspirate amount (mL): ??15 ??Aspirate: ??Serous ??Lab: fluid sent for laboratory analysis ?Patient tolerance: ??Patient tolerated the procedure well with no immediate complications us Fransisco Heard MD IN CLINIC/BEDSIDE ORDERABLE S Final Result documented in this encounter Visit Diagnoses Diagnosis Right knee pain, unspecified chronicity- Primary Aftercare following right knee joint replacement surgery Right knee pain, unspecified chronicity Aftercare following right knee joint replacement surgery documented in this encounter Historical Medications * This list may reflect changes made after this encounter. AMOXICILLIN 500 mg capsule TK 1 C PO TID TAT 0 09/07/2019 10/01/2019 added in this encounter Care Teams Microsoft Solutions Architect Relationship Specialty Start Date End Date Rl Medina DO [address] [place] [address] PCP - General 08/09/17 05/25/24 documented as of this encounter
--- OUTSIDE RECORDS SUMMARY | 2024-11-05 19:28 | XMS_ITS | Encounter Summary ---
Author Organization [facility] Address [address] [place] [address] Care Team Providers Care Collator Operator Name Role Phone Rl Medina DO Primary Care Provider Reason for Referral * Diagnostic Imaging (Routine) - Closed Specialty Diagnoses / Procedures Referred By Contac t Referred To Contact Diagnoses Unilateral primary osteoarthritis, left knee Aftercare following right knee joint replacement surgery Procedures XR Knee Left 3 Views Fransisco Heard MD [address] [place] [address] Phone: tel: fax: [facility] [address] [place] [phone] Phone: tel: Referral ID Status Reason Start Date Expiration Date Visits Re quested Visits Authorized [id number] Closed 08/03/2021 09/02/2022 1 1 * Diagnostic Imaging (Routine) - Closed Specialty Diagnoses / Procedures Referred By Contac t Referred To Contact Diagnoses Unilateral primary osteoarthritis, left knee Aftercare following right knee joint replacement surgery Procedures XR Knee Right 3 Views Fransisco Heard MD [address] [place] [id number] Phone: tel: fax: [facility] [address] [place] [phone] Phone: tel: Referral ID Status Reason Start Date Expiration Date Visits Re quested Visits Authorized [id number] Closed 08/03/2021 09/02/2022 1 1 Reason for Visit * Diagnostic Imaging (Routine) - Closed Specialty Diagnoses / Procedures Referred By Contac t Referred To Contact Diagnoses Unilateral primary osteoarthritis, left knee Aftercare following right knee joint replacement surgery Procedures XR Knee Right 3 Views Fransisco Heard MD [address] [address] Phone: tel: fax: [facility] [address] [place] [phone] Phone: tel: Referral ID Status Reason Start Date Expiration Date Visits Re quested Visits Authorized [id number] Closed 08/03/2021 09/02/2022 1 1 Encounter Details Date Type Department Care Team (Latest Contact Info) Description 08/09/2021 1:15 PM CDT - 08/09/2021 11:59 PM CDT Hospital Encounter [facility] [address] [place] [phone] Fransisco Heard MD [address] [address] Unilateral primary osteoarthritis, left knee; Aftercare following right knee joint replacement surgery Discharge Disposition: Discharge to home or self care Social History Tobacco Use Types Packs/Day Years Used Date Smoking Tobacco: Former Cigarettes 1 11 1 969 - 1979 Smokeless Tobacco: Never Alcohol Use Standard Drinks/Week Comments Yes 14 (1 standard drink = 0.6 oz pu re alcohol) social Sex and Gender Information Value Date Recorded Sex Assigned at Not on file 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 SCRAP BALER Gender Identity Not on file Sexual Orientation Not on file documented as of this encounter Medications at Time of Discharge mupirocin (BACTROBAN) 2 % ointment Apply topically 2 (two) times a day for 5 days APPLY TO NOSTRILS TWICE A DAY FOR 5 DAYS PRIOR TO SURGERY. 22 g 08/09/2021 08/14/20 21 acetaminophen (Tylenol Extra Strength) 500 mg tablet Take 500 mg by mouth every 6 hours as needed 10/06/2019 10/18/20 21 acyclovir (ZOVIRAX) 400 mg tabletIndications: Chronic Suppression Take 1 tablet (400 mg total) by mouth 2 (two) times a day 3 06/08/2019 12/10/19 24 aspirin 81 mg enteric coated tabletIndications: prevention of thrombosis Take 1 tablet (81 mg total) by mouth 2 (two) times a day 60 tablet 10/18/2021 10/25/20 22 celecoxib (CeleBREX) 100 mg capsuleIndications :Osteoarthritis,Po stoperative Acute Pain TAKE 2 PILLS WITH BREAKFAST THE DAY BEFORE SX. TAKE 1 PILL BID FOR 4 DAYS AFTER DISCHARGE. 10 capsule 08/09/2021 10/18/20 21 celecoxib (CeleBREX) 100 mg capsuleIndications :Osteoarthritis,Po stoperative Acute Pain Take 1 tablet twice daily after surgery until prescription is finished. You should already have this prescription at home. 10 capsule 10/18/2021 02/08/20 22 cholecalciferol (VITAMIN D-3) 5,000 unit capsuleIndications :Vitamin D Deficiency Take 1 capsule (5,000 Units total) by mouth every morning 12/10/19 24 ciprofloxacin (CIPRO) 500 mg tabletIndications: Prophylaxis, Surgical,Before Dental Take 500 mg by mouth 08/27/2019 10/18/20 21 cyanocobalamin (Vitamin B-12) 2,500 mcg tablet, sublingualIndicati ons:Prevention of Vitamin B12 Deficiency,OTC Take 2,500 mcg by mouth every morning 09/28/20 21 DILT-XR 240 mg 24 hr capsuleIndications :hypertension Take 1 capsule (240 mg total) by mouth 2 (two) times a day 0 05/12/2019 12/10/19 24 irbesartan (AVAPRO) 150 mg tablet 250 mg 12/10/2019 09/28/20 21 loratadine (CLARITIN) 10 mg tabletIndications: Allergic Rhinitis [...] total) by mouth every morning 12/05/19 24 oxyCODONE-acetamin ophen (PERCOCET) 5-325 mg per tabletIndications: Pain Take 1-2 tablets by mouth every 4 (four) hours as needed for pain 56 tablet 10/17/2021 02/08/20 22 peg 499-[id number]-e lycerin 1-0.36-0.2 % dropsIndications:D ry Eye Administer 1 drop into both eyes once daily as needed 10/06/2019 10/11/20 23 polyethylene glycol (MIRALAX) 17 gram/dose powderIndications: constipation Take 17 g by mouth daily as needed 10/06/2019 10/08/20 23 senna-docusate (PERICOLACE) 8.6-50 mg Take 2 tablets by mouth 2 (two) times a day 80 tablet 1 10/18/2021 02/08/20 22 sildenafil, antihypertensive, (REVATIO) 20 mg tabletIndications: ED Take 1 tablet (20 mg total) by mouth as needed 10/11/20 23 documented as of this encounter Discharge Disposition Disposition Code Departure Means Destination Discharge to home or self care documented in this encounter Plan of Treatment Not on file documented as of this encounter Procedures Procedure Name Priority Date/Time Associated Diagnosis Comments XR KNEE RIGHT 3 VIEWS Schedule Routine, Read Routine (OP Routine) 08/09/2021 1:55 PM CDT Unilateral primary osteoarthritis, left knee Aftercare following right knee joint replacement surgery XR KNEE LEFT 3 VIEWS Schedule Routine, Read Routine (OP Routine) 08/09/2021 1:55 PM CDT Unilateral primary osteoarthritis, left knee Aftercare following right knee joint replacement surgery documented in this encounter Results * XR Knee Left 3 Views (08/09/2021 1:55 PM CDT) Anatomical Region Laterality Modality Lower Extremities, Knee Left Computed Radiography 08/09/2021 3:12 PM CDT Impressions 08/09/2021 4:33 PM CDT 1. ??Right knee revised total arthroplasty, in expected position 2. ??Left knee progressive severe medial compartment predominant tricompartmental osteoarthritis 3. ??Possible left medial femoral condyle subchondral insufficiency fracture Dictated by: Alonso Fischer M.D. The radiology attending physician has personally reviewed this study, and had reviewed and/or edited this written report and agrees with it. Electronically signed by: Oskar Ackerman MD, PHD Narrative 08/09/2021 4:33 PM CDT EXAMINATION: XR KNEE LEFT 3 VIEWS, XR KNEE RIGHT 3 VIEWS HISTORY: A revised right total knee arthroplasty. Left knee osteoarthritis COMPARISON: Radiograph 09/30/2019 and 07/23/2019 FINDINGS: 3 view examinations of the right and left knees are submitted for evaluation, with comparison to prior. On the right, redemonstrated revised total knee arthroplasty, in expected position. No periprosthetic lucency or fracture. Trace right knee effusion. On the left, there is progressive severe medial, mild lateral, and mild patellofemoral compartment osteoarthritis with trace knee joint effusion. Subtle sclerosis along the left medial femoral condyle may represent a subchondral insufficiency fracture. Procedure Note Oskar Ackerman MD PhD - 08/09/2021 EXAMINATION: XR KNEE LEFT 3 VIEWS, XR KNEE RIGHT 3 VIEWS HISTORY: A revised right total knee arthroplasty. Left knee osteoarthritis COMPARISON: Radiograph 09/30/2019 and 07/23/2019 FINDINGS: 3 view examinations of the right and left knees are submitted for evaluation, with comparison to prior. On the right, redemonstrated revised total knee arthroplasty, in expected position. No periprosthetic lucency or fracture. Trace right knee effusion. On the left, there is progressive severe medial, mild lateral, and mild patellofemoral compartment osteoarthritis with trace knee joint effusion. Subtle sclerosis along the left medial femoral condyle may represent a subchondral insufficiency fracture. IMPRESSION: 1. Right knee revised total arthroplasty, in expected position 2. Left knee progressive severe medial compartment predominant tricompartmental osteoarthritis 3. Possible left medial femoral condyle subchondral insufficiency fracture Dictated by: Alonso Fischer M.D. The radiology attending physician has personally reviewed this study, and had reviewed and/or edited this written report and agrees with it. Electronically signed by: Oskar Ackerman MD, PHD us Fransisco Heard MD IMG XR PROCEDURES Final Res ult * XR Knee Right 3 Views (08/09/2021 1:55 PM CDT) Anatomical Region Laterality Modality Lower Extremities, Knee Right Computed Radiography 08/09/2021 3:12 PM CDT Impressions 08/09/2021 4:33 PM CDT 1. ??Right knee revised total arthroplasty, in expected position 2. ??Left knee progressive severe medial compartment predominant tricompartmental osteoarthritis 3. ??Possible left medial femoral condyle subchondral insufficiency fracture Dictated by: Alonso Fischer M.D. The radiology attending physician has personally reviewed this study, and had reviewed and/or edited this written report and agrees with it. Electronically signed by: Oskar Ackerman MD, PHD Narrative 08/09/2021 4:33 PM CDT EXAMINATION: XR KNEE LEFT 3 VIEWS, XR KNEE RIGHT 3 VIEWS HISTORY: A revised right total knee arthroplasty. Left knee osteoarthritis COMPARISON: Radiograph 09/30/2019 and 07/23/2019 FINDINGS: 3 view examinations of the right and left knees are submitted for evaluation, with comparison to prior. On the right, redemonstrated revised total knee arthroplasty, in expected position. No periprosthetic lucency or fracture. Trace right knee effusion. On the left, there is progressive severe medial, mild lateral, and mild patellofemoral compartment osteoarthritis with trace knee joint effusion. Subtle sclerosis along the left medial femoral condyle may represent a subchondral insufficiency fracture. Procedure Note Oskar Ackerman MD PhD - 08/09/2021 EXAMINATION: XR KNEE LEFT 3 VIEWS, XR KNEE RIGHT 3 VIEWS HISTORY: A revised right total knee arthroplasty. Left knee osteoarthritis COMPARISON: Radiograph 09/30/2019 and 07/23/2019 FINDINGS: 3 view examinations of the right and left knees are submitted for evaluation, with comparison to prior. On the right, redemonstrated revised total knee arthroplasty, in expected position. No periprosthetic lucency or fracture. Trace right knee effusion. On the left, there is progressive severe medial, mild lateral, and mild patellofemoral compartment osteoarthritis with trace knee joint effusion. Subtle sclerosis along the left medial femoral condyle may represent a subchondral insufficiency fracture. IMPRESSION: 1. Right knee revised total arthroplasty, in expected position 2. Left knee progressive severe medial compartment predominant tricompartmental osteoarthritis 3. Possible left medial femoral condyle subchondral insufficiency fracture Dictated by: Alonso Fischer M.D. The radiology attending physician has personally reviewed this study, and had reviewed and/or edited this written report and agrees with it. Electronically signed by: Oskar Ackerman MD, PHD Fransisco Heard MD IMG XR PROCEDURES Final Res ult documented in this encounter Visit Diagnoses Diagnosis Unilateral primary osteoarthritis, left knee Aftercare following right knee joint replacement surgery documented in this encounter Care Teams Collator Operator Relationship Specialty [place] [address] [place] [id number] PCP - General 08/09/17 05/25/24 documented as of this encounter
--- OUTSIDE RECORDS SUMMARY | 2024-11-05 19:28 | XMS_ITS | Encounter Summary ---
Author Organization [facility] Address [address] [place] [address] Phone Care Team Providers Care Tin Stacker Name Role Phone Adam Rl JBernie RUIZ Primary Care Provider [phone] Reason for Visit * Reason Comments Post-op Encounter Details Date Type Department Care Team (Late st Contact Info) Description 10/27/2019 10:15 AM CUT IN WORKER Office Visit [facility] Orthopaedic Surgery [address] 6th [place] [address] [place] [id number] Fransisco Heard MD [address] [facility] [address] [place] [address] Aftercare following right knee joint replacement surgery (Primary Dx) Social History Tobacco Use Types Packs/Day Years Used Date Smoking Tobacco: Former Cigarettes 1 11 1 969 - 1979 Smokeless Tobacco: Never Alcohol Use Standard Drinks/Week Comments Yes 14 (1 standard drink = 0.6 oz pu re alcohol) social Sex and Gender Information Value Date Recorded Sex Assigned at Not on file 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 CUT IN WORKER Gender Identity Not on file Sexual Orientation Not on file documented as of this encounter Ordered Prescriptions Prescription Sig Dispense Quantity Refills Last Filled Start Date End Date meloxicam (MOBIC) 15 mg tablet Take 1 tablet (15 mg total) by mouth daily 30 tablet 2 10/27/2019 11/26/2019 documented in this encounter Progress Notes * Fransisco Heard MD - 10/27/2019 10:15 AM CST POST-OPERATIVE VISIT INTERIM HISTORY: Hira Evans is status post right revision knee replacement. PHYSICAL EXAM: Incision is well healed with no drainage. He has a normal gait with no limp. Range of motion is 0 to 105?? flexion, with excellent alignment. Stability is normal. he uses no assistive device Neurovascular status is intact. REVIEW OF XRAYS/STUDIES: Right Knee X-rays show excellent alignment and fixation MEDICATIONS: mobic script given in clinic today, to start when aspirin course compleed. TREATMENT PLAN: 1. The patient has been full weight bearing. 2. We will continue routine outpatient physical therapy prn protocol and order given. FOLLOW UP: He will return on an annual basis for routine follow up. Fransisco Heard M.D. Andi Rodrigues and Peyton Paula Professor of Orthopaedic Surgery IN WORKER documented in this encounter Plan of Treatment Not on file documented as of this encounter Visit Diagnoses Diagnosis Aftercare following right knee joint replacement surgery- Primary documented in this encounter Discontinued Medications Medication Sig Discontinue Reason Start Date End Da te celecoxib (CeleBREX) 100 mg capsuleIndications:Oste oarthritis,Postoperativ e Acute Pain TAKE 2 PILLS WITH BREAKFAST THE DAY BEFORE SX. TAKE 1 PILL BID FOR 4 DAYS AFTER DISCHARGE. 07/23/2019 10/27/2019 documented as of this encounter Historical Medications * This list may reflect changes made after this encounter. peg 400-hypromellose -glycerin 1-0.36-0.2 % dropsIndications :Dry Eye Administer 1 drop into both eyes once daily as needed 10/06/2019 3 acetaminophen (Tylenol Extra Strength) 500 mg tablet Take 500 mg by mouth every 6 hours as needed 10/06/2019 1 polyethylene glycol (MIRALAX) 17 gram/dose powderIndication s:constipation Take 17 g by mouth daily as needed 10/06/2019 3 added in this encounter Care Teams Tin Stacker Relationship Specialty Start Date End Date Rl Medina DO [address] [id number] PCP - General 08/09/17 05/25/24 documented as of this encounter
--- OUTSIDE RECORDS SUMMARY | 2024-11-05 19:28 | XMS_ITS | Encounter Summary ---
Author Organization [facility] Address [address] [address] Care Team Providers Care Vice President Medical Affairs Name Role Phone Rl Medina DO Primary Care Provider Reason for Visit * Reason Comments COVID-19 EVALUATION pre op Encounter Details Date Type Department Care Team (Late st Contact Info) Description 10/15/2021 2:00 PM TRIAGE NURSE Office Visit [facility] [address] [address] Pre-op testing (Primary Dx) Social History Tobacco Use Types Packs/Day Years Used Date Smoking Tobacco: Former Cigarettes 1 09 05 969 - 1979 Smokeless Tobacco: Never Alcohol Use Standard Drinks/Week Comments Yes 14 (1 standard drink = 0.6 oz pu re alcohol) social AUDIT-C Answer Date Recorded Q1: How often do you have a drink containing alcohol? 4 or more times a week 09/28/2021 Q2: How many drinks containi ng alcohol do you have on a typical day when you are drinking? 3 or 4 Q3: How often do you have si x or more drinks on one occasion? Never 09/28/2021 Sex and Gender Information Value Date Recorded Sex Assigned at Not on file 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 TRIAGE NURSE Gender Identity Not on file Sexual Orientation Not on file documented as of this encounter Progress Notes * Rut Calvillo MA - 10/15/2021 2:00 PM CST Patient presents today for pre procedure COVID-19 test. N95 mask, gown, gloves, and eye protection worn during swab collection. Patient instructed to self-isolate from time of swab collection until scheduled surgery. GE NURSE documented in this encounter Plan of Treatment Not on file documented as of this encounter Visit Diagnoses Diagnosis Pre-op testing- Primary Unspecified pre-operative examination documented in this encounter Care Teams Vice President Medical Affairs Relationship Specialty Start Date End Date Rl Medina DO [address] [place] [address] PCP - General 08/09/17 05/25/24 documented as of this encounter
--- OUTSIDE RECORDS SUMMARY | 2024-11-05 19:28 | XMS_ITS | Encounter Summary ---
Author Organization [facility] Address [address] [place] [address] Phone Care Team Providers Care Director Graphics Name Role Phone Rl Medina DO Primary Care Provider Encounter Details Date Type Department Care Team (Late st Contact Info) Description 10/11/2021 Telephone [facility] Orthopaedic Surgery [address] [place] [address] Medical Office [address] [place] [address] Karishma Escudero RN Social History Tobacco Use Types Packs/Day [...] on file 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 ORCHID SUPERINTENDENT Gender Identity Not on file Sexual Orientation Not on file documented as of this encounter Miscellaneous Notes * Telephone Encounter - Karishma Escudero RN - 10/11/2021 4:59 PM ORCHID SUPERINTENDENT OS Recon - Note PreOp Surgery Arrival Time Call Arrival Time: 1030 Surgery Date: 10/17/21 Arrival Location: [facility] Main Entrance/Registration PreHab completed: Yes IF No, outpatient PT location identified: Location: NPO after MN understood: Yes\ Clear liquids until: arrival Confirm patient has picked up Rx for Mupirocin: Yes Verify start date/instructions: Yes Confirm patient has picked up Celebrex: Yes Verify start date/instructions: Yes Confirm patient has Chlorhexidine soap: Yes Verify start date/instructions: Yes Remind patient to shower with special soap on AM of surgery date. Confirm patient understands exactly what medications should be held 1 week prior to surgery: Yes Verify patient understands exactly what medications to take AM of surgery: Yes Verify patient insurance: Yes Verify patient still has a joint assistant softball coach that will be caring for them AT LEAST 3-5 days/24 hours a day post op: Yes Instruct patient to have joint assistant softball coach at the hospital on POD#1 to attend D/C class &/or observe nursing staff/OT/PT sessions: Yes Verify changes in medical status: Yes If Yes, comment: none Verify clean skin integrity: Yes If No, comment: no issues ID SUPERINTENDENT documented in this encounter Plan of Treatment Not on file documented as of this encounter Visit Diagnoses Not on filedocumented in this encounter Care Teams Director Graphics Relationship Specialty Start Date End Date Rl Medina DO [address] [place] [address] PCP - General 08/09/17 05/25/24 documented as of this encounter
--- OUTSIDE RECORDS SUMMARY | 2024-11-05 19:28 | XMS_ITS | Encounter Summary ---
Author Organization [facility] Address [address] [place] [address] Phone Care Team Providers Care Hearing Aid Assembly Supervisor Name Role Phone Rl Medina DO Primary Care Provider Encounter Details Date Type Department Care Team (Latest Contact Info) Description 09/30/2019 Orders Only [facility] Fransisco Heard MD [address] [place] [address] Social History Tobacco Use Types Packs/Day Years Used Date Smoking Tobacco: Former Cigarettes 1 11 1 969 - 1980 Smokeless Tobacco: Never Alcohol Use Standard Drinks/Week Comments Yes 14 (1 standard drink = 0.6 oz pu re alcohol) social Sex and Gender Information Value Date Recorded Sex Assigned at Not on file 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
--- OUTSIDE RECORDS SUMMARY | 2024-11-05 19:28 | XMS_ITS | Encounter Summary ---
Author Organization [facility] Healthcare Address [address] [place] [address] Care Team Providers Care Airline Managerial Supervisor Name Role Phone Rl Medina DO Primary Care Provider Reason for Visit * Auth/Cert Specialty Diagnoses / Procedures Referred By Contac t Referred To Contact Diagnoses Gross hematuria Lesion of bladder Gross hematuria [R31.0] Lesion of bladder [N32.9] Procedures MI CYSTOURETHROSCOPY WITH BIOPSY BIOPSY - BLADDER CYSTOSCOPY Referral ID Status Reason Start Date Expiration Date Visits Re quested Visits Authorized [id number] 1 1 Encounter Details Date Type Department Care Team (Late st Contact Info) Description 11/13/2022 8:14 AM FIREPERSON Anesthesia Event [facility] Operating Room [address] [place] [address] [place] [address] [place] [address] Marie Jerry NP [address] [facility] [id number] [place] [address] Anesthesia Record Procedure Summary Procedure Name Responsible Anesthesiologist Anesthesia Start Time Anesthesia Stop Time BIOPSY - BLADDER (Urethra) Ed Whitman MD 11/13/22 0814 11/13/22 0844 Events Date Time Event Comment 11/13/2022 0720 In Preop 0733 0801 AN Equip Check 0814 In Room 0814 An Start 0814 An Start Data 0819 An Induction The patient was reevaluated immediately before moderate or deep sedation use and before anesthesia induction. 0822 An LMA 0822 Anesthesia Ready 0826 Proc Start 0831 Proc Fin 0833 Airway Removed 0837 an stop data 0838 Out of Room 0844 Handoff to RN I completed my handoff [...] disposition at the time of handoff: PACU 0844 An Stop Meds Name Total midazolam 2 mg/2 mL 2 mg fentaNYL PF 100 mcg propofol 150 mg ondansetron PF 8 mg lidocaine 1 % 50 mg ceFAZolin (ANCEF) 1 gram/10 mL in steril e water (premix) 2,000 mg 2,000 mg Lactated Ringer's (LR) infusion 0 mL * Agents Name O2 N2O Air Sevoflurane Inspired Sevoflurane * Blood No blood administrations on file. Lines, Drains, and Airways Type Details Placement Removal RETIRED Surgical Site 10/17/21; 1259; Le ft; Knee; 10/12/23; Not present on admission 10/17/21 1259 by Dania Barnes RN 10/12/23 0000 by Lynnette Guallpa RN Peripheral IV Placement Date: 11/13/22; Placement Time: 729; Catheter Size: 20 G; Orientation: Anterior, Distal, Left; Location: Forearm; Removal Date: 11/13/22; Removal Time: 92411/13/22729 by Kasey Hatfield RN 11/13/22 09 by Tangela Tolliver RN Supraglottic Airway Placement Date: 11/13/22; Placement Time: 821 (created via procedure documentation); Mask Ventilation: 1; Size: 4; Insertion Attempts: 1; Removal Date: 11/13/22; Removal Time: 83211/13/22 08 by Sj Mullen CRNA 11/13/22 08 by Sj Mullen CRNA RETIRED Surgical Site 11/13/22; 0833; Pe nis; 10/12/23; Not present on admission 11/13/22 0833 by Lakshmi Richardson RN 10/12/23 0000 by Lynnette Guallpa RN documented in this encounter Social History [...] on file 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 FIREPERSON Gender Identity Not on file Sexual Orientation Not on file documented as of this encounter OR Notes * Anesthesia Postprocedure Evaluation - Ed Whitman MD - 11/13/2022 9:50 AM CST Patient: Hira Evans Procedure Summary Date: 11/13/22 Room / Location: [facility] OPERATING ROOM 04 / [facility] OPERATING ROOM Anesthesia Start: 813 Anesthesia Stop: 843 Procedures: BIOPSY - BLADDER (Urethra) CYSTOSCOPY (Urethra) Diagnosis: Gross hematuria Lesion of bladder (Gross hematuria [R31.0]) (Lesion of bladder [N32.9]) Surgeons: Ashley Mcmillan MD Responsible Provider: Ed Whitman MD Anesthesia Type: general ASA Status: 2 Anesthesia Type: general Last vitals BP 114/56 Pulse 51 Temp (!) 35.9 ??C (96.6 ??F) Resp 20 SpO2 100% Anesthesia Post Evaluation Patient location during evaluation: PACU Patient participation: complete - patient participated Level of consciousness: fully awake Pain score: 0 Pain management: adequate Airway patency: adequate Evidence of recall: no Cardiovascular status: hemodynamically stable and acceptable Respiratory status: acceptable and room air Hydration status: acceptable Pt is: normothermic Nausea/Vomiting status: none No notable events documented. PERSON * Anesthesia Procedure Notes - Sj Mullen CRNA - 11/13/2022 8:22 AM CSTAssociated Order(s): Airway Airway Patient location: OR Urgency: elective Indications for airway management: anesthesia Difficult airway: no Staff: Placed by: VETERINARY DENTIST: Sj Mullen CRNA Emergent airway documentation: Risks and benefits discussed: yes Consent obtained: yes Consent given by: patient Airway prep: Preoxygenated: yes Mask difficulty assessment: 1 - vent by mask Spontaneous ventilation during airway: absent Sedation level during airway: GA Final airway details: Final airway type: supraglottic airway Final supraglottic airway: classic SGA size: 4 Number of attempts: 1 PERSON * Anesthesia Preprocedure Evaluation - Ed Whitman MD - 11/02/2022 8:01 AM CST Images from the original note were not included. [facility] Planning Preoperative Evaluation Record Evaluation type/location: TPAP from [facility] Planned procedure site: [facility] OR Date: 11/02/22 NOTE: This note represents a preoperative evaluation initiated via telephone interview. NO PHYSICALEXAM was performed at the time of initial assessment. A physical exam may be added to this note anddocumented below. Anesthesia Evaluation Hira Evans is a 72 y.o. male Procedure(s): BIOPSY - BLADDER CYSTOSCOPY Pre-Op Diagnosis Codes: * Primary osteoarthritis of left knee [M17.12] HISTORY HPI 72 y/o male being evaluated for ??BIOPSY - BLADDER (Urethra), CYSTOSCOPY for hematuria and bladder lesion. Past Medical History Information obtained from: patient and chart. Neurological Pertinent negatives: seizures; neuromuscular disease; CVA/stroke; TIA; CEA; ICA stenosis; dementia/mild cognitive impairment and carotid artery stent Cardiovascular + Hypertension Typical systolic BP - 125 Typical diastolic BP - 85 Pertinent negatives: CAD ; [place] ; CABG ; valvular heart disease; valve replacement; atrial fibrillation; arrhythmia; pacemaker/ICD; PVD; DVT/PE; negative for CHF; drug-eluting stent(s); bare metal stent(s); coronary angioplasty and hyperlipidemia Respiratory Pertinent negatives: COPD; asthma; sleep apnea (KYLE); pulmonary hypertension; no O2 use outside thehospital and non-smoker (quit in 1979) Hepatic / Heme + History of thrombocytopenia (plt 138 on 10/2021) Pertinent negatives: liver disease; history of anemia and history of Jigna positive Gastrointestinal + GERD - on daily therapy. Asymptomatic. Pertinent negatives: hiatal hernia Renal / + Nephrolithiasis (approx 7 years ago) Pertinent negatives: renal disease and dialysis Musculoskeletal/Pain + Osteoarthritis (Right knee) Pertinent negatives: chronic opioid use; previous treatment for opioid use disorder and headaches Endocrine / Other + Diabetes mellitus - Diabetes type 2. Diagnosed: ~2020. Outpatient insulin use: none. + Obesity (BMI >30) + Cancer history Cancer type: Hx of prostate cancer s/p prostatectomy in 2008 and melanoma on rightflank s/p resected in 2005. Pertinent negatives: thyroid disease; rheumatological disease; transplanted organ; infectious disease; eye disorder and pancreatitis Functional Capacity Functional capacity: 4-6 METs Comments: Patient reports they are able to walk 2 flights of stairs and 3-4 city blocks at a moderate pace without any significant SOB or CP. Review of Systems + vision loss (Glasses) + heartburn Pertinent negatives: productive cough; wheezing; SOB; recent cold/flu; fever; chest pain; palpitations; orthopnea; pedal edema; PND; Sickle Cell disease/trait; previous transfusion; transfusion reaction; melena/hematochezia; easy bruising; bleeding problems; syncope; dizziness; muscle weakness; numb ness/tingling; hard of hearing; nausea; dysphagia; diarrhea; dentures/partials; chipped/loose teeth; abdominal pain; diaphoresis and no unexpected weight change Comments: PAT Summary and Plans Cardiac risk classification of planned procedure: low cardiac risk. Preoperative assessment status: complete. Additional comments: Hira Kebede Kainjacinda is a 72 y.o. male who is being evaluated prior to undergoing a low cardiac risk surgery. Revised Cardiac Risk Index factors are (none) for a total RCRI of 0 out of6. Functional capacity is 4-6 METs. Obstructive sleep apnea (KYLE) screening status is STOP-BANG incomplete at 3-4 suggesting MODERATE risk for KYLE. Neck circumference pending. May need KYLE order set initiated if Co2 >27. This assessment was performed via telephone. Therefore the physical exam has been deferred to the day of surgery team. The patient was provided with preoperative instructions for their medications. Patient instructions were provided by telephone and electronically sent via [employer]. Patient verbalized understanding of preoperative plan. Blood bank needs for day of procedure: No type and screen needed Pending labs/tests include: POC glucose Preoperative evaluation performed by Hannah Gay NP on 11/02/22 at 8:06 AM. Patient Active Problem List Diagnosis ??? Knee pain ??? Presence of right artificial knee joint ??? Primary osteoarthritis of left knee ??? Failed total knee arthroplasty (CMS/HCC) (HCC) ??? Localized adiposity ??? HTN (hypertension) ??? Risk factors for obstructive sleep apnea ??? Bladder neck obstruction ??? Lesion of urinary bladder ??? Prostate cancer (CMS/HCC) (HCC) ??? Gross hematuria Past Medical History: Diagnosis Date ??? Arthritis OA ??? GERD (gastroesophageal reflux disease) ??? History of melanoma ??? Hypertension ??? Personal history of prostate cancer ??? Seasonal allergies Past Surgical History: Procedure Laterality Date ??? JOINT REPLACEMENT Right 2014 right knee replacement ??? MELANOMA RESECTION Right 2005 right flank ??? PROSTATECTOMY 2008 ??? REPLACEMENT TOTAL KNEE Left 10/17/2021 ??? REVISION TOTAL KNEE ARTHROPLASTY Right 09/30/2019 No Known Allergies Taking? Last Dose Start Date End Date Provider acyclovir (ZOVIRAX) 400 mg tablet -- 06/08/19 -- Fidelia Perdue MD cephalexin (KEFLEX) 500 mg capsule -- 10/09/22 -- Fidelia Perdue MD cholecalciferol (VITAMIN D-3) 5,000 unit capsule -- -- -- Fidelia Perdue MD DILT-XR 240 mg 24 hr capsule -- 05/12/19 -- Fidelia Perdue MD irbesartan (AVAPRO) 300 mg tablet -- 08/10/21 -- Fidelia Perdue MD loratadine (CLARITIN) 10 mg tablet -- -- -- Fidelia Perdue MD MYRBETRIQ 25 mg tablet extended release 24 hr -- 07/08/19 -- Fidelia Perdue MD omeprazole (PriLOSEC) 20 mg capsule -- -- -- Fidelia Perdue MD Ozempic 0.25 mg or 0.5 mg(2 mg/1.5 mL) pen injector injection -- 09/21/22 -- Fidelia Perdue MD peg [id number] 1-0.36-0.2 % drops -- 10/06/19 -- Fidelia Perdue MD polyethylene glycol (MIRALAX) 17 gram/dose powder -- 10/06/19 -- Fidelia Perdue MD Notes: None in over a month sildenafil, antihypertensive, (REVATIO) 20 mg tablet -- -- -- Fidelia Perdue MD Current Outpatient Medications: ??? acyclovir (ZOVIRAX) 400 mg tablet ??? cephalexin (KEFLEX) 500 mg capsule ??? cholecalciferol (VITAMIN D-3) 5,000 unit capsule ??? DILT-XR 240 mg 24 hr capsule ??? irbesartan (AVAPRO) 300 mg tablet ??? loratadine (CLARITIN) 10 mg tablet ??? MYRBETRIQ 25 mg tablet extended release 24 hr ??? omeprazole (PriLOSEC) 20 mg capsule ??? Ozempic 0.25 mg or 0.5 mg(2 mg/1.5 mL) pen injector injection ??? peg [id number] 1-0.36-0.2 % drops ??? polyethylene glycol (MIRALAX) 17 gram/dose powder ??? sildenafil, antihypertensive, (REVATIO) 20 mg tablet Social History Tobacco Use Smoking Status Former ??? Packs/day: 1.00 ??? Types: Cigarettes ??? Start date: 1968 ??? Quit date: 1979 ??? Years since quittin.0 ??? Passive exposure: Past Smokeless Tobacco Never Substance and Sexual Activity Alcohol Use Yes ??? Alcohol/week: 14.0 standard drinks ??? Types: 14 Glasses of wine per week Comment: social Substance and Sexual Activity Drug Use Never Comment: THC in Oct 2021 for knee pain Family History Problem Relation Age of Onset ??? Heart disease Other Family history of cardiac disorder - (Added by TW Conv) ??? Cancer Other Family history of malignant neoplasm - (Added by TW Conv) ??? Heart disease Mother ??? Anesthesia problems Neg Hx PAT Physical Exam Cardiovascular Exam: (Auscultation to carotids bilaterally negative for bruits ) There were no vitals filed for this visit. Relevant diagnostics: ECG(s): N/A Echocardiogram(s): N/A Stress test(s): N/A Cardiac catheterization(s): N/A PFT(s): N/A Vascular studies: N/A Other: CT left knee 09/28/21 -- pending XR knee 08/09/21 IMPRESSION: 1. Right knee revised total arthroplasty, in expected position 2. Left knee progressive severe medial compartment predominant tricompartmental osteoarthritis 3. Possible left medial femoral condyle subchondral insufficiency fracture PT: No results found for requested labs within last 720 hours. INR: No results found for requested labs within last 720 hours. APTT: No results found for requested labs within last 720 hours. Hgb A1C: No results found for requested labs within last 720 hours. CBC RBC: No results found for requested labs within last 720 hours. RDW: No results found for requested labs within last 720 hours. MCHC: No results found for requested labs within last 720 hours. MCH: No results found for requested labs within last 720 hours. MCV: No results found for requested labs within last 720 hours. Hct: No results found for requested labs within last 720 hours. Hgb: No results found for requested labs within last 720 hours. WBC: No results found for requested labs within last 720 hours. MPV: No results found for requested labs within last 720 hours. Platelets: No results found for requested labs within last 720 hours. RDW CV: No results found for requested labs within last 720 hours. RDW Sd: No results found for requested labs within last 720 hours. BMP Glucose: No results found for requested labs within last 720 hours. Calcium: No results found for requested labs within last 720 hours. Sodium: No results found for requested labs within last 720 hours. Potassium: No results found for requested labs within last 720 hours. CO2: No results found for requested labs within last 720 hours. Chloride: No results found for requested labs within last 720 hours. BUN: No results found for requested labs within last 720 hours. Creatinine: No results found for requested labs within last 720 hours. DOS Physical Exam Medical history, medications, and allergies reviewed. Attestation: This PAT evaluation Airway Exam: Mallampati: I Cervical ROM: FROM Cardiovascular Exam: Rate: regular Rhythm: regular Pulmonary Exam: LCTA, bilat Anesthesia Plan ASA 2 My patient is approved for the Anesthesia Controlled Medication protocol when under care of a VETERINARY DENTIST Planned anesthesia: General Informed Consent: Anesthesia plan and risks discussed with patient. Consent and Attending signature: I and/or my designee have discussed the anesthesia plan, benefits, possible alternatives, parental presence at time of induction (if indicated), and clinically relevant risks that may include dental injury, unintentional awareness, and/or other complications. The patient and/or parent/legal guardian understand, and agree to proceed. All questions answered. PERSON PERSON documented in this encounter Plan of Treatment Not on file documented as of this encounter Procedures Procedure Name Priority Date/Time Associated Diagnosis Comments MI AN PROCEDURE PLACEHOLDER Routine 11/13/2022 8:22 AM FIREPERSON MI AN ELECTIVE SUPRAGLOTTIC AIRWAY Routine 11/13/2022 8:22 AM FIREPERSON documented in this encounter Results * MI AN ELECTIVE SUPRAGLOTTIC AIRWAY, MI AN PROCEDURE PLACEHOLDER (11/13/2022 8:22 AM FIREPERSON) Narrative Sj Mullen CRNA - 11/13/2022 8:22 AM FIREPERSON Sj Mullen CRNA ? 11/13/2022 ??8:22 AM Airway Patient location: OR Urgency: elective Indications for airway management: anesthesia Difficult airway: no Staff: Placed by: VETERINARY DENTIST: Sj Mullen CRNA Emergent airway documentation: Risks and benefits discussed: yes Consent obtained: yes Consent given by: patient Airway prep: Preoxygenated: yes Mask difficulty assessment: 1 - vent by mask Spontaneous ventilation during airway: absent Sedation level during airway: GA Final airway details: Final airway type: supraglottic airway Final supraglottic airway: classic SGA size: 4 Number of attempts: 1 us Ed Whitman MD ANESTHESIA ORDERABLES Fin al Result documented in this encounter Visit Diagnoses Not on filedocumented in this encounter Administered Medications Inactive Administered Medications - up to 3 most recent administrations Medication Order MAR Action Action Date Dose Rate Site ceFAZolin (ANCEF) 1 gram/10 mL in sterile water (premix) 2,000 mg 2,000 mg, intravenous, at 400 mL/hr, Administer over 3 Minutes, Once, On Sun11/13/22 at 0800, For 1 dose, Pre-Op, Administer within 60 minutes of incision., Indications: Prophylaxis, SurgicalIndications:Prophylaxis, Surgical Given 11/13/2022 8:22 AM FIREPERSON 2,000 mg fentaNYL (SUBLIMAZE) preservative free injection intravenous, As needed, Starting on Sun11/13/22 at 0819, Anesthesia Intra-op Given 11/13/2022 8:23 AM FIREPERSON 50 mcg Given 11/13/2022 8:19 AM FIREPERSON 50 mcg Lactated Ringer's (LR) infusion 30 mL/hr, intravenous, Continuous, Starting on Sun11/13/22 at 0800, For 4 hours, Pre-Op, Use a 500 ml bag for End Stage Renal Disease Patients. Discontinue if fluid still running once patient arrives to floor. Rate/Dose Change 11/13/2022 8:22 AM FIREPERSON 30 mL/hr Rate/Dose Verify 11/13/2022 8:14 AM FIREPERSON 30 mL/h r New Bag 11/13/2022 7:42 AM FIREPERSON 30 mL/hr 30 mL/hr lidocaine (XYLOCAINE) 10 mg/mL (1 %) injection caudal block, As needed, Starting on Sun11/13/22 at 0819, Anesthesia Intra-op, Indications: Administration of Local AnesthesiaIndications:Administration of Local Anesthesia Given 11/13/2022 8:19 AM FIREPERSON 50 mg midazolam (VERSED) 1 mg/mL injection intravenous, As needed, Starting on Sun11/13/22 at 0811, Anesthesia Intra-op Given 11/13/2022 8:11 AM FIREPERSON 2 mg ondansetron (ZOFRAN) injection intravenous, Administer over 2 Minutes, As needed, Starting on Sun11/13/22 at 0811, Anesthesia Intra-op Given 11/13/2022 8:19 AM FIREPERSON 4 mg Given 11/13/2022 8:11 AM FIREPERSON 4 mg propofoL (DIPRIVAN) 10 mg/mL IV intravenous, As needed, Starting on Sun11/13/22 at 0819, Anesthesia Intra-op Given 11/13/2022 8:19 AM FIREPERSON 150 mg documented in this encounter Care Teams Airline Managerial Supervisor Relationship Specialty Start Date End Date Rl Medina DO [address] [place] [address] PCP - General 08/09/17 05/25/24 documented as of this encounter
--- OUTSIDE RECORDS SUMMARY | 2024-11-05 19:28 | XMS_ITS | Encounter Summary ---
Author Organization [facility] Healthcare Address [address] [place] [address] Care Team Providers Care Rolls Baker Name Role Phone Rl Medina DO Primary Care Provider [phone] Reason for Visit * Auth/Cert Specialty Diagnoses / Procedures Referred By Contac t Referred To Contact Diagnoses Gross hematuria Lesion of bladder Gross hematuria [R31.0] Lesion of bladder [N32.9] Procedures ME CYSTOURETHROSCOPY WITH BIOPSY BIOPSY - BLADDER CYSTOSCOPY Referral ID Status Reason Start Date Expiration Date Visits Re quested Visits Authorized [id number] 1 1 Encounter Details Date Type Department Care Team (Latest Contact Info) Description 11/13/2022 7:02 AM PARAPROFESSIONAL AIDE - 11/13/2022 9:28 AM PARAPROFESSIONAL AIDE Hospital Encounter [facility] Operating Room [address] [place] [address] Ashley Mcmillan MD [address] [facility] [place] [address] Gross hematuria; Lesion of bladder Discharge Disposition: Discharge to home or self [...] on file 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 PARAPROFESSIONAL AIDE Gender Identity Not on file Sexual Orientation Not on file documented as of this encounter Last Filed Vital Signs Vital Sign Reading Time Taken Comments Blood Pressure 114/56 11/13/2022 9:20 AM PARAPROFESSIONAL AIDE Pulse 51 11/13/2022 9:25 AM PARAPROFESSIONAL AIDE Temperature 35.9 ??C (96.6 ??F) 11/13/2022 9:25 AM CS T Respiratory Rate 20 11/13/2022 9:25 AM PARAPROFESSIONAL AIDE Oxygen Saturation 100% 11/13/2022 9:25 AM PARAPROFESSIONAL AIDE Inhaled Oxygen Concentration - - Weight 83.9 kg (185 lb) 10/25/2022 9:05 AM PARAPROFESSIONAL AIDE Height 172.7 cm (5' 8 ) 10/25/2022 9:05 AM PARAPROFESSIONAL AIDE Body Mass Index 28.13 10/25/2022 9:05 AM PARAPROFESSIONAL AIDE documented in this encounter Discharge Instructions * Discharge Instructions* Tangela Tolliver RN - 11/13/2022 8:09 AM PARAPROFESSIONAL AIDE Discharge Instructions: Surgery performed: Cystoscopy, bladder biopsy New medications: - Phenazopyridine as needed for pain with urination. This medication may cause your urine to turn orange or dark red in color. - Acetaminophen and ibuprofen as needed for pain, available mjbc-hbg-ryclgyd; take this scheduled for the next 72 hours, then afterwards as needed - Docusate/miralax as needed for constipation, available clgg-wyl-tqddirw. Constipation is common after anesthesia - Macrobid, an antibiotic; an antibiotic; begin taking this tomorrow morning, continue twice daily,and take all pills until they are gone. Pain Control - Start by using over the counter medications such as acetaminophen (Tylenol) or ibuprofen (Advil or Motrin) unless otherwise specified by your doctor. - If your pain is still uncontrolled please call us and we can consider stronger medications - As you recover, your pain will decrease and you will need less pain medication. You should only take pain medication if you are in pain. Diet: -Resume your regular diet Activity: - You have no activity restrictions other than no driving for 24 hours after anesthesia. Follow up: You will be called with your biopsy results to arrange next steps. Contact your doctor if: - You have [...] clots are normal, especially after physical activity.) Sunday through Sunday, 8 AM to 5:00 PM: call Dr. Mcmillan's judicial assistant Linda at [phone] and askfor a member of your doctor's team. For urgent matters after 5:00 PM during the week or on weekendsor holidays, call [phone] and ask to have the Urology Microstr[employer] Bi Developer Physician paged for you. You have received anesthesia, therefore, for the next 24 hours and/or while taking narcotic pain medication; -Do NOT drive a vehicle -Do NOT drink alcohol -Do NOT make important personal or business decisions or sign legal documents. Examples of narcotic pain medication include Percocet, Oxycontin, [place], Hydrocodone, and Oxycodone. FAQs (frequently asked questions) about Surgical Site Infections What is a Surgical Site Infection (SSI)? A surgical site infection is and infection that occurs after surgery in the part of the body where the surgery took place. Most patients who have surgery do not develop an infection. However, infections develop in about 1 to 3 out of every 100 patients who have surgery. Some of the common symptoms fo a surgical site infection are: Redness and pain around the area where you had surgery Drainage of cloudy fluid from your surgical wound Fever Can SSIs be treated? Yes. Most surgical site infections can be treated with antibiotics. The antibiotic given to you depends on the bacteria (germs) causing the infection. Sometimes patients with SSIs causing the infection. Sometimes patients with SSIs also need another surgery to treat the infection. What are some of the things that hospitals are doing to prevent SSIs? To prevent SSIs, doctors, nurses, and other healthcare providers: Clean their hands and arms up to their elbows with an antiseptic agent just before the surgery. Clean their hands with soap and water or an alcohol-based hand rub before and after caring for eachpatient. May remove some of your hair immediately before your surgery using electric clippers if the hair isin the same area where the procedure will occur. They should not shave you with a razor. Wear special hair covers, masks, gowns, and gloves during surgery to keep the surgery area clean. Give you antibiotics before your surgery starts. In most cases, you should get antibiotics within 60 minutes before the surgery starts and the antibiotics should be stopped within 24 hours after surgery. Clean the skin at the site of your surgery with a special soap that kills germs. What can I do to help prevent SSIs? Before your surgery: Tell your doctor about other medical problems you may have. Health problems such as allergies, diabetes, and obesity could affect your surgery and your treatment. Quit smoking. Patients who smoke get more infections. Talk to your doctor about how you can quit before your surgery. Do not shave near where you will have surgery. Shaving with a razor can irritate your skin and makeit easier to develop an infection. At the time of your surgery: Speak up if someone tries to shave you with a razor before surgery. Ask why you need to be shaved and talk with your surgeon if you have any concerns. Ask if you will get antibiotics before surgery. After your surgery: Make sure that your healthcare providers clean their hands before examining you, either with soap and water or an alcohol-based hand rub. If you do not see you providers clean their hands, please ask them to do so. Family and friends who visit you should not touch the surgical wound or dressings. Family and friends should clean their hands with soap and water or an alcohol- based hand rub beforeand after visiting You. If you do not see them clean their hands, ask them to clean their hands. What do I need to do when I go home from the hospital? Before you go home, your doctor or nurse should explain everything you need to know about taking care of your wound. Make sure you understand how to care for your wound before you leave the hospital. Always clean your hands before and after caring for your wound. Before you go home, make sure you know who to contact if you have questions or problems after you get home. If you have any symptoms of an infection, such as a redness and pain at the surgery site, drainage,or fever, call your doctor immediately. If you have additional questions, please ask your doctor or nurse. Safety Tips for Preventing Falls at Home Falls happen at home for many reasons. Here are several things that are known to add to your risk of falling: Poor vision or hearing History of falls Use of an assistive device, such as a cane or walker Poor nutrition Certain medications Multiple medications Being older than 65 years of age Conditions in the home, such as slippery floors, loose rugs, cords on the floor If you answer ???yes?? to any of the following questions, please consider discussing your risk of falling with your primary care practitioner: Have you fallen in the last year? Do you feel unsteady when standing or walking? Do you have a fear of falling? If your primary care practitioner recommends physical therapy, we are available to assist: [facility]: [facility] [phone] [place] [phone] [facility] [phone] How are some things that you can do that will lower your risk for falls at home: Arrange furniture to prevent tripping or bumping into it. Keep a light on in the bedroom & bathroom to help you see at night. Have your doctor or pharmacist review your medications. Remove things that you can trip over like phone cords, rugs & footstools. Wear sturdy non-skid slippers or shoes with flat or low heels Use handrails when going up & down stairs. Take one step at a time. Begin a regular exercise program When getting up, sit on the edge of the bed/chair for a few minutes before standing. Sit & stand up slowly. Avoid tilting your head back. Watch out for sidewalks & curbs that are not even. Replace worn walker, cane & crutch tips. Disclaimer: This material provides general information only. It should not be used in place of the advice, instructions, or treatment given by your doctor or other health progressive care unit registered nurse. PROFESSIONAL AIDE PROFESSIONAL AIDE * Attachments The following attachments cannot be sent through Care Everywhere. * General Anesthesia (Discharge Care) (Japanese) * Cystoscopy (Discharge Care) (Japanese) documented in this encounter Medications at Time of Discharge nitrofurantoin monohydrate (MACROBID) 100 mg capsule Take 1 capsule (100 mg total) by mouth 2 (two) times a day for 5 days 10 capsule 11/13/2022 11/18/19 23 phenazopyridine (PYRIDIUM) 200 mg tablet Take 1 tablet (200 mg total) by mouth 3 (three) times a day for 10 days 30 tablet 11/13/2022 11/23/19 23 acyclovir (ZOVIRAX) 400 mg tabletIndications: Chronic Suppression [...] mellitus 0.5 mg Sunday09/21/2022 09/13/20 23 peg 596-zkzdivdmhtkj-s lycerin 1-0.36-0.2 % dropsIndications:D ry Eye Administer 1 drop into both eyes once daily as needed 10/06/2019 10/11/20 23 polyethylene glycol (MIRALAX) 17 gram/dose powderIndications: constipation Take 17 g by mouth daily as needed 10/06/2019 10/08/20 23 sildenafil, antihypertensive, (REVATIO) 20 mg tabletIndications: ED Take 1 tablet (20 mg total) by mouth as needed 10/11/20 23 documented as of this encounter Ordered Prescriptions Prescription Sig Dispense Quantity Refills Last Filled Start Date End Date phenazopyridine (PYRIDIUM) 200 mg tablet Take 1 tablet (200 mg total) by mouth 3 (three) times a day for 10 days 30 tablet 11/13/2022 3 nitrofurantoin monohydrate (MACROBID) 100 mg capsule Take 1 capsule (100 mg total) by mouth 2 (two) times a day for 5 days 10 capsule 11/13/2022 3 documented in this encounter Discharge Disposition Disposition Code Departure Means Destination Discharge to home or self care documented in this encounter H&P Notes * Ashley Mcmillan MD - 11/13/2022 7:53 AM CST I have reviewed the H&P, examined the patient, and endorse the findings as written. Plan of Care : Based on the above findings, I consider Hira Evans to be an acceptable risk for : Procedure(s): BIOPSY - BLADDER CYSTOSCOPY PROFESSIONAL AIDE Source Note - Ed Whitman MD - 11/02/2022 8:01 AM PARAPROFESSIONAL AIDE Images from the original note were not included. [facility] Preoperative [facility] and Planning Preoperative Evaluation Record Evaluation type/location: TPAP from [facility] Planned procedure site: [facility] OR Date: 11/02/22 NOTE: This note represents [...] BP - 85 Pertinent negatives: CAD ; NV ; CABG ; valvular heart disease; valve [...] Preoperative assessment status: complete. Additional comments: Hira Evans is a 72 y.o. male who is [...] provided by telephone and electronically sent via [employer]. Patient verbalized understanding of preoperative plan. Blood [...] MELANOMA RESECTION Right 2006 right flank ??? PROSTATECTOMY 2009 ??? REPLACEMENT TOTAL KNEE [...] -- 09/21/22 -- Fidelia Perdue MD peg 146-cweveqkrqhjr-uzvsyafo 1-0.36-0.2 % drops -- 10/06/19 -- Fidelia [...] mg/1.5 mL) pen injector injection ??? peg 701-ychsmarpcqsi-pevspnrg 1-0.36-0.2 % drops ??? polyethylene glycol (MIRALAX) [...] Medication protocol when under care of a SPRAYING MACHINE OPERATOR Planned anesthesia: General Informed Consent: Anesthesia plan and risks discussed with patient. Consent and Attending signature: I and/or my designee have discussed the anesthesia plan, benefits, possible alternatives, parental presence at time of induction (if indicated), and clinically relevant risks that may include dental injury, unintentional awareness, and/or other complications. The patient and/or parent/legal guardian understand, and agree to proceed. All questions answered. PROFESSIONAL AIDE PROFESSIONAL AIDE documented in this encounter Miscellaneous Notes * Op Note - Ashley Mcmillan MD - 11/13/2022 8:17 AM CST Operative Report SURGEON: Ashley Mcmillan MD SURGICAL TEAM: Surgeon(s) and Role: * Ashley Mcmillan MD - Primary DATE OF SURGERY : 11/13/2022 PREOPERATIVE DIAGNOSIS: Pre-op Diagnosis * Gross hematuria [R31.0] * Lesion of bladder [N32.9] POSTOPERATIVE DIAGNOSIS: Post-op Diagnosis * Gross hematuria [R31.0] * Lesion of bladder [N32.9] PROCEDURE: BIOPSY - BLADDER, CYSTOSCOPY ANESTHESIA: General INDICATION FOR PROCEDURE: 72 year old male with a history of prostate cancer s/p RRP, now with OAB symptoms and office cystoscopy demonstrating a small erythematous lesion. He presents today for cystoscopy and bladder biopsy.If pathology from biopsy is negative he is interested in bladder botox injections with my partner. OPERATIVE NOTE: Description and Findings of Operative Procedure: 1. 0.5 cm erythematous lesion at the posterior trigone with minimal papillary changes 2. Small sinus at the bladder neck, likely from prior urethrovesical anastomosis at time of prostatectomy 3. Surgically absent prostate After informed consent was obtained and signed, the patient was taken back to the operating suite. A time-out was performed to verify procedure details and the patient's identity. Next, the patient was placed supine on the operating table. Anesthesia was then induced after infusion of perioperativeantibiotics. The patient was then repositioned in dorsal lithotomy position. The genitals were thenprepped and draped in usual sterile fashion. A 21 Malay Cystoscope with a 30 degree lens was then inserted into the urethra and advanced towards he bladder. The urethra was patent and had no lesions. The prostate was surgically absent. There was a small sinus at the 6 o'clock position on the bladder neck as described above. We then entered the bladder and pancystoscopy was performed. Both ureteral orifices were then identified and had efflux of clear urine. There was a small 0.5 cm erythematous lesion on the posterior trigone. There were no other bladder masses, stones, or lesions. There were no diverticuli and no trabeculation. I then used cold-cup biopsy forceps to biopsy the lesion. This was passed off as specimen. We then used Bugbee electrocautery to fulgurate the base to achieve hemostasis. The cystoscope was then withdrawn and the bladder was then drained. All scopes were in good working order. The patient was awoken from anesthesia and taken to the PACUin good condition. Estimated Blood Loss: 1 cc Blood/Blood Products Transfused: 0 mls Complications: None Condition on Discharge from the operating room was stable Ashley Mcmillan MD Date: 11/13/2022 Time: 8:18 AM No Resident involved on case PROFESSIONAL AIDE PROFESSIONAL AIDE * Perioperative Nursing Note - Em Patrick RN - 10/25/2022 9:19 AM PARAPROFESSIONAL AIDE [facility] Preoperative Assessment and Planning Perioperative Nursing Note Telephone Preoperative Evaluation ([facility]) - TELEPHONE ONLY, NO PHYSICAL EXAM Date: 10/25/22 Vitals: 10/25/22 0905 Weight: 83.9 kg (185 lb) Height: 172.7 cm (5' 8 ) CHEST CIRCUMFERENCE: Social History Tobacco Use Smoking Status Former Packs/day: 1.00 Types: Cigarettes Start date: 1968 Quit date: 1979 Years since quittin.0 Passive exposure: Past Smokeless Tobacco Never Substance and Sexual Activity Drug Use Never Comment: THC in Oct 2021 for knee pain Alcohol Use Q1: How often do you have a drink containing alcohol?: 4 or more times a week Q2: How many drinks containing alcohol do you have on a typical day when you are drinking?: 1 or 2 Q3: How often do you have six or more drinks on one occasion?: Never Outpatient Medications Marked as Taking for the 11/13/22 encounter (Hospital Encounter) Medication Sig Dispense Refill acyclovir (ZOVIRAX) 400 mg tablet Take 400 mg by mouth 2 (two) times a day 3 cephalexin (KEFLEX) 500 mg capsule When pt has procedures gets pre antibiotic r/t history knee replacements cholecalciferol (VITAMIN D-3) 5,000 unit capsule Take 5,000 Units by mouth every morning DILT-XR 240 mg 24 hr capsule Take 240 mg by mouth 2 (two) times a day 0 irbesartan (AVAPRO) 300 mg tablet Take 300 mg by mouth every morning loratadine (CLARITIN) 10 mg tablet Take 10 mg by mouth daily as needed for allergies omeprazole (PriLOSEC) 20 mg capsule Take 20 mg by mouth every morning Ozempic 0.25 mg or 0.5 mg(2 mg/1.5 mL) pen injector injection 0.5 mg Sunday peg 872-lzzmrmfqbskj-wpecloez 1-0.36-0.2 % drops Administer 1 drop into both eyes once daily as needed polyethylene glycol (MIRALAX) 17 gram/dose powder Take 17 g by mouth daily as needed sildenafil, antihypertensive, (REVATIO) 20 mg tablet Take 20 mg by mouth as needed Implants Bone Cement [employer] 6197-9-010 Simplex P Full Dose Radiopaque Preblend Cement Bone Tobramycin - S0- [id number] - Implanted (Right) Knee Inventory item: [employer] Simplex P Full Dose Radiopaque Preblend Cement Bone [id number] Model/Cat number: [id number] Serial number: 0 Sales Floor Team Leader: [employer] Lot number: [id number] Device identifier: [id number] Device identifier type: GS1 As of 09/30/2019 Status: Implanted Other - see comments [employer] [id number] Kandace II 15mm Constrain Knee 5-6 Insert Articular Uhmwpe- S0 - [id number] - Implanted (Right) Knee Inventory item: [employer] Kandace Ii 15mm Constrain Knee 5-6 Insert ArticularUhmwpe [id number] Model/Cat number: [id number] Serial number: 0 Sales Floor Team Leader: [employer] Lot number: [id number] As of 09/30/2019 Status: Implanted [employer] [id number] Legion 10mm Screw Knee 6 Wedge Femoral - S0 - [id number] -Implanted (Right) Knee Inventory item: [employer] Legion 10mm Screw Knee 6 Wedge Femoral [id number] Model/Cat number: [id number] Serial number: 0 Sales Floor Team Leader: [employer] Device identifier: [id number] Device identifier type: [facility] As of 09/30/2019 Status: Implanted [employer] [id number] Legion Constrain Knee Right 6 Component Femoral Oxinium - S0 - [id number] - Implanted (Right) Knee Inventory item: [employer] Legion Constrain Knee Right 6 Component Femoral Oxinium [id number] Model/Cat number: [id number] Serial number: 0 Sales Floor Team Leader: [employer] Lot number: [id number] As of 09/30/2019 Status: Implanted [employer] [id number] Legion 5mm Alcon Step Knee Right Medial Left Lateral 5-6 Wedge - S0 - [id number] - Implanted (Right) Knee Inventory item: [employer] Legion 5mm Alcon Step Knee Right Medial Left Lateral5-6 Wedge [id number] Model/Cat number: [id number] Serial number: 0 Sales Floor Team Leader: [employer] Device identifier: [id number] Device identifier type: [facility] As of 09/30/2019 Status: Implanted [employer] [id number] Legion 15mm 160mm Press Fit Knee Stem Femoral - S0 - [id number] - Implanted (Right) Knee Inventory item: [employer] Legion 15mm 160mm Press Fit Knee Stem Femoral [id number] Model/Cat number: [id number] Serial number: 0 Sales Floor Team Leader: [employer] Lot number: [id number] As of 09/30/2019 Status: Implanted [employer] [id number] Legion 10mm Screw Knee 6 Wedge Femoral - S0 - [id number] -Implanted (Right) Knee Inventory item: [employer] Legion 10mm Screw Knee 6 Wedge Femoral [id number] Model/Cat number: [id number] Serial number: 0 Sales Floor Team Leader: [employer] Lot number: [id number] As of 09/30/2019 Status: Implanted [employer] [id number] Legion Revision Knee Right 5 Baseplate Tibial - S0 - [id number] - Implanted (Right) Knee Inventory item: [employer] Legion Revision Knee Right 5 Baseplate Tibial [id number] Model/Cat number: [id number] Serial number: 0 Sales Floor Team Leader: [employer] Lot number: [id number] Device identifier: [id number] Device identifier type: GS1 As of 09/30/2019 Status: Implanted [employer] [id number] Legion 15mm 160mm Press Fit Knee Stem Femoral - S0 - [id number] - Implanted (Right) Knee Inventory item: [employer] Legion 15mm 160mm Press Fit Knee Stem Femoral [id number] Model/Cat number: [id number] Serial number: 0 Sales Floor Team Leader: [employer] Lot number: [id number] Device identifier: [id number] Device identifier type: GS1 As of 09/30/2019 Status: Implanted [employer] 5517-F-501 Triathlon Cruciate Retain Bead Knee Left 5 Component Femoral Pa - Sn/A - [id number] - Implanted (Left) Knee Inventory item: [employer] Triathlon Cruciate Retain Bead Knee Left 5 Component Femoral Pa 5517-F-501 Model/Cat number: [id number] Serial number: N/A Sales Floor Team Leader: [employer] Lot number: [id number] Device identifier: [id number] Device identifier type: GS1 As of 10/17/2021 Status: Implanted [employer] 5536-B-600 Triathlon Knee 6 Baseplate Tibial Tritanium - Sn/A - [id number] - Implanted (Left) Knee Inventory item: [employer] Triathlon Knee 6 Baseplate Tibial Tritanium 5536-B-600 Model/Cat number: [id number] Serial number: N/A Sales Floor Team Leader: [employer] Lot number: [id number] Device identifier: [id number] Device identifier type: GS1 As of 10/17/2021 Status: Implanted [employer] 1222-V-[id number] Insert Tibial Triathlon 6 H10mm Knee Bearing Condylar Stabilize Sterile - Sn/A - [id number] - Implanted (Left) Knee Inventory item: [employer] Insert Tibial Triathlon 6 H10mm Knee Bearing Condylar Stabilize Sterile [id number]-[id number] Model/Cat number: [id number] Serial number: N/A Sales Floor Team Leader: [employer] Lot number: [id number] Device identifier: [id number] Device identifier type: GS1 As of 10/17/2021 Status: Implanted Type Not Specified [employer] 6197-9-010 Simplex P Full Dose Radiopaque Preblend Cement Bone Tobramycin - [id number] - Implanted (Right) Knee Inventory item: [employer] Simplex P Full Dose Radiopaque Preblend Cement Bone Namvvcyavl0101-4-971 Model/Cat number: [id number] Sales Floor Team Leader: [employer] Device identifier: [id number] Device identifier type: GS1 As of 09/30/2019 Status: Implanted SKIN Piercings Remaining: No Wound (LDAs) Type of Wound (LDA): (none) SCREENINGS Joni index score: 95 NUTRITION PATIENT CARE PLANNING Advance Directives (For Healthcare) Have you reviewed your Advance Directive and is it valid for this stay?: Yes Advance Directive: Patient has advance directive, copy not in chart Advance Directive not in Chart: (Encouraged to bring copy DOS) Assistive Devices/DME: None Discharge Planning Type of Residence: Private residence Living Arrangements: Spouse/significant other Support Systems: Spouse/significant other Assistance Needed: Spouse/ Cyda/ Crate Builder and helper Patient expects to be discharged to:: Private residence SLASHER SAWYER NO ADDITIONAL COMMENTS/ FOLLOW UP PROFESSIONAL AIDE * Pre-Procedure Instructions - Em Patrick RN - 10/25/2022 9:11 AM PARAPROFESSIONAL AIDE [facility] ([facility]) PRE-SURGICAL NURSING INSTRUCTIONS Telephone Assessment General Information Discussed with Patient: Surgery location provided to patient. Arrival time and surgical time will be provided to the patient by their surgeon. You should wear clothing that is clean, loose, comfortable and easy to get in and out of on the dayof surgery. You should leave your valuables and any jewelry at home. No metal or piercings are allowed in the operating room. You should bring your insurance card, a photo ID (example: [employer] License) and a method of payment for any insurance copay, deductible or copay for discharge medications. You should bring a complete, up-to-date list of all your medications on the day of surgery, including any over the counter medications or supplements you may take. You should bring your Advanced Directive and/or Living Will with you on the day of surgery if you have not verified a copy is already in your Epic Chart. If you are having surgery at [facility], please arrive on the day of surgery [...] Pathway to [facility] by the followinglink: [email or web address] How To Prepare Your Skin For Surgery [...] creams, powders, Vaseline or any non-essential products. Place clean linens on your bed the [...] COVID-19 within the last 10 days?: No Have you tested positive for monkeypox within the last 28 days or are you waiting for a monkeypox test result?: No Infectious Disease Screening Are you having any of the following:: Cough New or worsening cough for more than one month? : No As of 08/29/2022 any COVID TESTING required for surgery will be set up by your surgeon's office. Please reach out to your surgeon's office if you develop any COVID symptoms, test positive for COVID or are exposed to a COVID positive person. If you have questions, please call the CPAP Staff at [phone], Sunday-Sunday 8am-4:30pm. All patients should read the below section: All visitors/patients are being asked to wear a clean face mask when entering the hospital. COVID 19 Updates & Visitor Policy: Please access [email or web address] for the most updated information. Information on [facility]: Please view [email or web address] (Patient & Visitor Information) for additional details regarding Advanced Directive forms, AWARE, directions, parking information, lodging, Internet access, dining and more. Information on [facility] or [facility] ([facility]): Please view [email or web address] (Patient and Visitor Information) for parking/directions and more. For MyChart information, to activate account or password recovery, please go to [email or web address] or call [phone] (toll-free: [phone]). Information for Suicide Prevention: National Suicide Prevention Lifeline (7-486- 089-HHKA (1857)). Surgery Times: For patients having surgery @ [facility], [facility] or [facility] ([facility]), if your surgeon's office has not notified you of your surgery time by NOON THE BUSINESS DAY BEFORE your surgery, please call [phone] and ask for your surgeon's office Dr. Ashley Mcmillan . PROFESSIONAL AIDE documented in this encounter Plan of Treatment Not on file documented as of this encounter Procedures Procedure Name Priority Date/Time Associated Diagnosis Comments SURGICAL PATHOLOGY Routine 11/13/2022 8: 28 AM PARAPROFESSIONAL AIDE Gross hematuria Lesion of bladder CYSTOSCOPY 11/13/2022 8:14 AM PARAPROFESSIONAL AIDE Gross hematuria Lesion of bladder BIOPSY - BLADDER 11/13/2022 8:14 AM PARAPROFESSIONAL AIDE Gross hematuria Lesion of bladder POCT GLUCOSE DEVICE Routine 11/13/2022 7 :44 AM PARAPROFESSIONAL AIDE documented in this encounter Results * Surgical pathology (11/13/2022 8:28 AM PARAPROFESSIONAL AIDE) Tissue (Bladder, biopsy) 11/13/2022 8:28 AM PARAPROFESSIONAL AIDE Narrative PATHOLOGY [facility] - 11/15/2022 1:07 PM PARAPROFESSIONAL AIDE EPIC results best viewed via link to PDF [facility] Surgical Pathology [address] [facility], [place] [address] Note to Patients: This report may contain a detailed description of human tissue sent by a health care provider to the laboratory for pathologic evaluation. The content of this report is essential for diagnosis and may provide important critical findings. This information may be unfamiliar to patients to review without a medical professional present. It is advised that the patient review this report in the presence of a health care provider who can answer questions and explain the details. SURGICAL PATHOLOGY REPORT FINAL Patient Name: ?? HIRA EVANS Gender: ??M : ??1950 (Age: 72) Address: ??[address] ??[address] Hospital #: ??[id number] Taken:11/13/2022 Received:11/13/2022 Reported: 11/15/2022 Patient Type: [facility] EP SAME Client ?[facility] Service: Surgery Location: Physician(s): ??Sergio Garcia D.O. Diagnosis: Bladder, biopsy ? Urothelial dysplasia, see comment ? Muscularis propria present ? Multiple levels of tissue examined amxw/11/14/2022 07:40 By this signature, I attest that the above diagnosis is based upon my personal examination of the slides(and/or other material indicated in the diagnosis). Cheryl Boyle M.D., PH.D. Report Electronically Reviewed and Signed Out By ??Cheryl Boyle M.D., PH.D. 11/15/2022 13:07:47 Diagnosis Comment There is a focal area of urothelium (best seen in level 5) showing some loss of polarity with nuclear enlargement and pleomorphism; however this degree of dysplasia does not meet all of the criteria for an unequivocal diagnosis of urothelial carcinoma in situ. The case has been reviewed in pathology consensus meeting. Microscopic Description and Comment: Microscopic examination substantiates the above cited diagnosis. ??Deeper levels were examined. Microscopic slide review and interpretation for this case was performed at [facility], Department of Surgical Pathology, [address] [facility] [address], [id number], ??[place], [place] ??[address] ?? CLIA # [id number] Linda Gallardo M.D., PhD History: The patient is a 72-year-old man with gross hematuria and lesion of bladder. ??Operative procedure: Bladder biopsy. Specimen(s) Received: A: Bladder bx Gross Description: Received in formalin, labeled with the patient? ? s identifiers and bladder biopsy Is a single irregular tissue fragment(s) (measuring 0.5 x 0.4 x 0.1 cm). ?? Labeled A1. Jar 0. ?? cnewho/11/13/2022 10:05 PA(s): JOBY Hernandez, CT (ASCP) By this signature, I attest that the above diagnosis is based upon my personal examination of the slides(and/or other material). Addenda/Procedures The performance characteristics of some immunohistochemical stains, fluorescence in-situ hybridization tests and immunophenotyping by flow cytometry cited in this report (if any) were determined by the Surgical Pathology and Flow Cytometry Departments at [facility] as part of an ongoing quality control checker program and in compliance with federally mandated regulations drawn from the Clinical Laboratory Improvement Act of 1988 (CLIA '88). ??Some of these tests rely on the use of analyte specific reagents and are subject to specific labeling requirements by the US Food and Drug Administration. ??Such diagnostic tests may only be performed in a facility that is certified by the Department of Health and Human Services as a high complexity laboratory under CLIA '88. ??The FDA has determined that such clearance or approval is not necessary. ??This test is used for clinical purposes. ??It should not be regarded as investigational or for research. ??Nevertheless, federal rules concerning the medical use of analyte specific reagents require that the following disclaimer be attached to the report: This test was developed and its performance characteristics determined by the Surgical Pathology and Flow Cytometry Departments of [facility]. ??It has not been cleared or approved by the U. S. Food and Drug Administration. IMAGES AND SCANNED DOCUMENTS, IF INCLUDED, ONLY VIEWABLE IN PDF VERSION OF REPORT Ashley Mcmillan MD LAB PATHOLOGY ORDERABLES Final Result Performing Organization Address City/[facility]/[employer] Phone Number PATHOLOGY [facility] [phone] * POCT glucose (11/13/2022 7:44 AM PARAPROFESSIONAL AIDE) Glucose, POC 90 70 - 199 mg/dL LAURA ESPINOZA Comment: Interpretive Data Glucose is assumed to be non-fasting. Fasting Glucose reference ranges are: 0 - 150 years: ??70 mg/dL - 99 mg/dL Current interpretive data was last revised on 2014. POC Performer [id number] [facility] P[facility] Device Number [id number] [facility] Blood 11/13/2022 7:44 AM PARAPROFESSIONAL AIDE 11/13/2022 7:44 AM PARAPROFESSIONAL AIDE [facility] Osmin Mcmillan MD LAB POCT ORDERABLES - DE VICE Final Result Performing Organization Address [facility] de Phone Number [facility] [address] [facility] Department [place] [address] documented in this encounter Visit Diagnoses Diagnosis Gross hematuria Lesion of bladder Unspecified disorder of bladder Lesion of urinary bladder documented in this encounter Admitting Diagnoses Diagnosis Lesion of urinary bladder Gross hematuria documented in this encounter Administered Medications Inactive Administered Medications - up to 3 most recent administrations Medication Order MAR Action Action Date Dose Rate Site acetaminophen (TYLENOL) tablet 1,000 mg 1,000 mg, oral, Once, On Sun11/13/22 at 0800, For 1 dose, Pre-Op, Give upon arrival to holding area. , Indications: Pre-Emptive AnalgesiaIndications:Pre- Emptive Analgesia Given 11/13/2022 7:42 AM PARAPROFESSIONAL AIDE 1,000 mg Lactated Ringer's (LR) infusion 30 mL/hr, intravenous, Continuous, Starting on Sun11/13/22 at 0800, For 4 hours, Pre-Op, Use a 500 ml bag for End Stage Renal Disease Patients. Discontinue if fluid still running once patient arrives to floor. Rate/Dose Change 11/13/2022 8:22 AM PARAPROFESSIONAL AIDE 30 mL/hr Rate/Dose Verify 11/13/2022 8:14 AM PARAPROFESSIONAL AIDE 30 mL/h r New Bag 11/13/2022 7:42 AM PARAPROFESSIONAL AIDE 30 mL/hr 30 mL/hr documented in this encounter Discontinued Medications Medication Sig Discontinue Reason Start Date End Da te aspirin 81 mg enteric coated tabletIndications:preven tion of thrombosis Take 1 tablet (81 mg total) by mouth 2 (two) times a day Error 10/18/2021 10/25/2022 documented as of this encounter Active and Recently Administered Medications Times are shown in PARAPROFESSIONAL AIDE. Scheduled Medication Order 11/11/2022 11/12/2022 11/13/2022 acetaminophen (TYLENOL) tablet 1,000 mg (COMPLETED) 1,000 mg, oral, Once, On Sun11/13/22 at 0800, For 1 dose, Pre-Op, Give upon arrival to holding area. , Indications: Pre-Emptive Analgesia 0742 (Given - Provid er: Kasey Hatfield RN) ceFAZolin (ANCEF) 1 gram/10 mL in sterile water (premix) 2,000 mg (COMPLETED) 2,000 mg, intravenous, at 400 mL/hr, Administer over 3 Minutes, Once, On Sun11/13/22 at 0800, For 1 dose, Pre-Op, Administer within 60 minutes of incision., Indications: Prophylaxis, Surgical 0822 (Given - Provid er: Sj Mullen CRNA) Continuous Medication Order 11/11/2022 11/12/2022 11/13/2022 Lactated Ringer's (LR) infusion 30 mL/hr, intravenous, Continuous, Starting on Sun11/13/22 at 0800, For 4 hours, Pre-Op, Use a 500 ml bag for End Stage Renal Disease Patients. Discontinue if fluid still running once patient arrives to floor. 0742 (New Bag - Prov ider: Kasey Hatfield RN)0814 (Rate/Dose Verify - Provider: Sj Mullen CRNA)0822 (Rate/Dose Change - Provider: Sj Mullen CRNA)1328 (Due: Stopped) Lactated Ringer's (LR) infusion 125 mL/hr, intravenous, Continuous, Starting on Sun11/13/22 at 0915, For 4 hours, Phase I, Discontinue upon discharge from PACU to the floor. 0915 (Due) PRN Medication Order 11/11/2022 11/12/202211/1311/13/2022 acetaminophen (TYLENOL) tablet 500 mg 500 mg, oral, Every 6 hours PRN, headaches, other, Breakthrough Pain and Supplement to other pain meds, Starting on Sun11/13/22 at 0840, For 2 doses, Phase I, When able to tolerate PO after consulting with Anesthesiologist. Do not administer if patient has already received Acetaminophen-containing medications in PACU., Indications: Pain diphenhydrAMINE (BENADRYL) injection 12.5 mg 12.5 mg, intravenous, Administer over 1 Minutes, Every 5 min PRN, itching, other, For Nausea, administer 25 mg IV., Starting on Sun11/13/22 at 0840, For 4 doses, Phase I, Max cumulative dose 50 mg., Indications: Itching fentaNYL (SUBLIMAZE) preservative free injection 25 mcg 25 mcg, intravenous, Every 5 min PRN, 2nd line for pain, Use Fentanyl as 1st line medication for extremely severe pain for outpatients, and follow with oral pain medication., Starting on Sun11/13/22 at 0840, For 4 doses, Phase I, Use as 1st line for outpatients, dose not to exceed 100 mics. If pain still extremely severe after 100 mics of Fentanyl, may proceed to Dilaudid after consulting with Anesthesiologist. If patient able to tolerate PO meds and pain improved after Fentanyl, proceed to Oral pain medication., Indications: Pain hydrALAZINE (APRESOLINE) injection 5 mg 5 mg, intravenous, Administer over 2 Minutes, Every 5 min PRN, high blood pressure, Starting on Sun11/13/22 at 0840, Phase I, Max cumulative dose 20 mg. Dose if systolic BP greater than 180 AND heart rate less than 70., Indications: hypertension HYDROcodone-acetaminophen (NORCO) 5-325 mg per tablet 1 tablet 1 tablet, oral, Every 20 min PRN, 3rd line for pain, breakthrough pain, May use as 1st line pain medication if pain not extremely severe and patient able to tolerate PO meds. If unable to tolerate PO meds or outpatient complaining of extremely severe pain, start with Fentanyl and follow with Oral meds., Starting on Sun11/13/22 at 0840, For 2 doses, Phase I, May administer TWO pills together if pain moderate to severe and patient able to tolerate PO meds, after consulting with Anesthesiologist., Indications: Pain HYDROmorphone (DILAUDID) injection 0.2 mg 0.2 mg, intravenous, Administer over 2 Minutes, Every 5 min PRN, 1st line for pain, Use as 1st line pain med for inpatients or for patients with extremely severe pain., Starting on Sun11/13/22 at 0840, Phase I, Use as first line pain medication for inpatients. May use as first line medication for outpatients with extremely severe pain, history of opioid tolerance, or history of Chronic Pain with opioid tolerance, after consulting with Anesthesiologist. Inform anesthesiologist when dose reaches 2 mg for inpatients or 1 mg for outpatients., Indications: Chronic Pain with Opioid Tolerance, Pain, Severe Pain with Opioid Tolerance labetaloL (NORMODYNE,TRANDATE) injection 5 mg 5 mg, intravenous, Every 5 min PRN, high blood pressure, Starting on Sun11/13/22 at 0840, For 4 doses, Phase I, Max cumulative dose 20 mg. Dose if systolic blood pressure greater than 180 AND HR greater than 70. meperidine (DEMEROL) preservative free injection 12.5 mg 12.5 mg, intravenous, Administer over 5 Minutes, Every 10 min PRN, shivering, Starting on Sun11/13/22 at 0840, For 2 doses, Phase I, Max cumulative dose 25 mg., Indications: Shivering naloxone (NARCAN) 0.4 mg/mL injection 0.04-0.4 mg 0.04-0.4 mg, intravenous, Once as needed, other, excessive sedation/respiratory depression, Starting on Sun11/13/22 at 0840, For 1 dose, Phase I, Dilute 0.4 mg with 9 mL NS (final concentration 0.04 mg/mL). For respiratory depression (respiratory rate less than 6), administer 0.4 mg IVP over 30 seconds. For excessive sedation administer 0.04 mg (1 mL) every 1 minute until desired level of alertness. Consult with Anesthesiologist before administration. Administer 40 mics at a time. For IV, administer over 30 seconds., Indications: Opioid Toxicity ondansetron (ZOFRAN) injection 4 mg 4 mg, intravenous, Administer over 2 Minutes, Once as needed, nausea, vomiting, Starting on Sun11/13/22 at 0840, For 1 dose, Phase I, Proceed to prochlorperazine if ondansetron has been given within the last 6 hours. prochlorperazine (COMPAZINE) injection 5 mg 5 mg, intravenous, Administer over 2 Minutes, Once as needed, nausea, vomiting, Starting on Sun11/13/22 at 0840, For 2 doses, Phase I, If nausea/vomiting not relieved by ondansetron within 30 minutes or if ondansetron has been given within the last 6 hours. May give second 5 mg dose if nausea not relieved 20 minutes after first dose. sodium chloride 0.9% irrigation (CANCELED) As needed, Starting on Sun11/13/22 at 0831, Intra-Op 0831 (Given - Provid er: Ashley Mcmillan MD) documented in this encounter Orders Medications Ordered That Armando ht Not Have Been Administered Count Last Ordered Date First Ordered Date acetaminophen (TYLENOL) tablet 500 mg 1 07/2023 ceFAZolin (ANCEF) 1 gram/10 mL in sterile water (premix) 2,000 mg 1 11/13/2022 diphenhydrAMINE (BENADRYL) i njection 12.5 mg 1 11/13/2022 famotidine (PEPCID) injection 20 mg 1 11/13 fentaNYL (SUBLIMAZE) preserv ative free injection 25 mcg 1 11/13/2022 hydrALAZINE (APRESOLINE) injection 5 mg 1 0 11/13/2022 HYDROcodone-acetaminophen (N ORCO) 5-325 mg per tablet 1 tablet 1 11/13/2022 HYDROmorphone (DILAUDID) injection 0.2 mg 1 11/13/2022 labetaloL (NORMODYNE,TRANDAT E) injection 5 mg 1 11/13/2022 Lactated Ringer's (LR) infusion 1 meperidine (DEMEROL) preserv ative free injection 12.5 mg 1 11/13/2022 naloxone (NARCAN) 0.4 mg/mL injection 0.04-0.4 mg 1 11/13/2022 ondansetron (ZOFRAN) injection 4 mg 1 11/13 prochlorperazine (COMPAZINE) injection 5 mg 11/13/2022 scopolamine patch 72 hour 1 patch 1 023 sodium chloride 0.9% flush 0.5-20 mL 1 07/2023 sodium chloride 0.9% irrigation 1 3 Discharge Count Last Ordered Date First Orde red Date DISCHARGE PATIENT 1 11/13/2022 documented in this encounter Care Teams Rolls Baker Relationship Specialty Start Date End Date Rl Medina DO [address] [place] [address] PCP - General 08/09/17 05/25/24 documented as of this encounter
--- OUTSIDE RECORDS SUMMARY | 2024-11-05 19:28 | XMS_ITS | Encounter Summary ---
Author Organization [facility] Address [address] [place] [address] Phone Care Team Providers Care Forest Landscape Ecology Professor Name Role Phone Rl Medina DO Primary Care Provider Encounter Details Date Type Department Care Team (Late st Contact Info) Description 09/11/2019 Documentation [facility] Orthopaedic Surgery [facility] Advanced Medicine 6th [place] [address] [place] [id number] Tamia Jya RN Social History Tobacco Use Types Packs/Day Years Used Date Smoking Tobacco: Former Cigarettes 1 11 1 969 - 1980 Smokeless Tobacco: Never Alcohol Use Standard Drinks/Week Comments Yes 14 (1 standard drink = 0.6 oz pu re alcohol) social Sex and Gender Information Value Date Recorded Sex Assigned at Not on file 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 (home) Procedure: R TKA Rev OR Date: 09/30/19 OR Location: [facility] [address] Landscape Architect Name: Poly - spouse PCP: Rl Medina DO When was you last visit: Pre-Op Scheduling Anesthesia: Spinal Preferred Blood Requirements: T & S Consents: Surgery procedure consent obtained. Blood transfusion consent obtained. Preadmission Testing/Anesthesia H&P: Date: 09/03 Time: Pre-Op Joint Class Scheduled for: Date: 09/03 Time: PreHab Rx given to Patient: n/a Faxed to: Doppler: n/a Date: Time: Pre-Op Meds/Anticoag: Instructed to stop primary prevention ASA/hormones/supplements 7 Days prior to surgery Instructed to stop NSAIDS 5 days prior to surgery Anticoagulation protocol discussed: Yes ASA/Active Care Pumps 10 days Decolonization Instructions: Yes Skin preparations guide Mupirocin Rx Prescription for Celebrex N/A The patient was given a TKA teaching packet including surgery guidelines with instructions, DECOL protocol instructions, instructions to stop all NSAID's, Blood thinners and aspirin products one weekbefore surgery, as well as office contacts to call if they have any additional questions prior to their surgery date. Current Outpatient Medications: ??? acetaminophen (TYLENOL) 500 mg tablet, Take 1,000 mg by mouth every 6 (six) hours as needed forpain, Disp: , Rfl: ??? acyclovir (ZOVIRAX) 400 mg tablet, Take 400 mg by mouth , Disp: , Rfl: 3 ??? celecoxib (CeleBREX) 100 mg capsule, TAKE 2 PILLS WITH BREAKFAST THE DAY BEFORE SX. TAKE 1 PILLBID FOR 4 DAYS AFTER DISCHARGE., Disp: 10 capsule, Rfl: 0 ??? cholecalciferol (VITAMIN D-3) 5,000 unit capsule, Take 5,000 Units by mouth every morning, Disp: , Rfl: ??? ciprofloxacin (CIPRO) 500 mg tablet, Take 500 mg by mouth , Disp: , Rfl: ??? cyanocobalamin (Vitamin B-12) 2,500 mcg tablet, sublingual, Take 2,500 mcg by mouth every morning, Disp: , Rfl: ??? DILT-XR 240 mg 24 hr capsule, Take 240 mg by mouth 2 (two) times a day , Disp: , Rfl: 0 ??? loratadine (CLARITIN) 10 mg tablet, Take 10 mg by mouth every morning, Disp: , Rfl: ??? losartan (COZAAR) 100 mg tablet, 100 mg every morning , Disp: , Rfl: ??? multivitamin with iron-mineral tablet, Take 1 tablet by mouth every morning, Disp: , Rfl: ??? MYRBETRIQ 25 mg tablet extended release 24 hr, Take 25 mg by mouth every morning , Disp: , Rfl:6 ??? omeprazole (PriLOSEC) 20 mg capsule, Take 20 mg by mouth every morning , Disp: , Rfl: ??? sildenafil, antihypertensive, (REVATIO) 20 mg tablet, Take 20 mg by mouth as needed , Disp: , Rfl: ??? zolpidem (AMBIEN) 10 mg tablet, Take 10 mg by mouth nightly as needed , Disp: , Rfl: He has No Known Allergies. Risk Assessment KYLE RISK: No STOP BANG Score: CMP(CO2): ordered Sleep Study: CPAP/BIPAP: N/A N/A Bone Health screen - Vitamin D Level Ordered: Yes No Oral Health: Healthy teeth Smoking History: No Family History of DVT/PE: No He reports that he quit smoking about 39 years ago. His smoking use included cigarettes. He startedsmoking about 50 years ago. He smoked 1.00 pack per day. He has never used smokeless tobacco. He reports current alcohol use of about 14.0 standard drinks of alcohol per week. He reports that he doesnot use drugs. Male: 4+ (POSITIVE) Female: <3 (negative) Illegal Drug Use: Never Functional/Home Assessment coppersmith helper assistance: Live in available day/night In a: Home Home Accessibility: single level Home Environment: Entry Steps: Yes: Number of Steps: 2 Bedroom Location: 1st Floor Bathroom Location:1st Floor What Medical Devices/Equipment used: none Are you able to self-manage activities of daily living: ADL's: Bathing, Dressing, Self-feeding, Personal Hygiene and Toilet Hygiene IADL's: Housework, Medications, Managing Money, Shopping and Telephone Transportation: Self Pre-Op Ambulation: Independent Community distances Projected Post-Op Weight bearing: Full or WBAT Home Location: < 150 miles RAPT: What is your age group?: Gender: How far on average can you walk? (a block is 200 meters): Which gait aid do you use most? (more often than not): Do you use community supports? (home-help, meals on wheels, district nursing): Will you live with someone who can care for you after your operation?: RAPT Total Score: (If <9 send to Recon CLIENT ANALYST's floor care team for review) (If <6 Pre-Op SW Consult) VELEZ: Destination at discharge from acute care predicted by score: Scores <6 facility placement Scores 6-9 directly home after additional acute intervention Scores >9 directly home Patient's expectation of discharge destination is also a determinant. The prediction indicated by the score is discussed with the patient and the destination agreed to. Patient's preference: Home Agreed destination: Home with < 5 Home Health visits Social Work Referral: Potential Rehab/SNF Candidate: RRAT Infection Risk Factors: Is patient positive for MRSA colonization at CPAP?: No Every Patient is decolonized per guideline. - Nasal Mupirocin (Bid x5 days pre-op) or povidone-iodine (DOS) and chlorhexidine gluconate (CHG) showers (QD x5 days prior to surgery & morning of surgery) and appropriate antibiotic coverage. - If these requirements are not met then HARD STOP until protocol implemented. Smoking (Tobacco Use): Current Smoker? No Obesity: What is the patient's BMI? BMI 30 - 35 Cardiovascular Disease: Patient has a history of Coronary Artery Disease (CAD), stroke, Peripheral Vascular Disease or VTED, is 60 years of age or older and has at least 2 cardiac risk factors: No Venous Thromboembolic Disease: Does the patient have a history of Pulmonary Embolus or Deep Vein Thrombosis? No Does the patient have any of the following VTED risk factors: CVA, COPD, BMI>30, CAD, Stroke, PVD, or Activated Protein C Resistance? No Neurocognitive, Psychological and Behavioral Problems (including alcohol and drug dependency): Does the patient have a history of alcohol abuse or chronic active narcotic dependency? No Does the patient have any neurocognitive deficits such as traumatic brain injury (TBI)l active psychiatric illness, dementia, etc? No Was the patient's last calculated PROMIS depression score greater than or equal to 60? No Physical Deconditioning: Patient is nonambulatory or needs assistance with transfer status? Patient has comorbidities affecting physical function and ambulation? No Diabetes: Is the patient diabetic? No Last calculated Fasting Blood Glucose > 180 mg/dl? Last calculated Hgb A1c > 8? Is DM well controlled? RRAT Total Score: Recommendations for Preoperative Care/Optimization: < 2 Proceed with Scheduling Surgery. Tamia Lowe, RN EYBALL ASSISTANT COACH documented in this encounter Plan of Treatment Not on file documented as of this encounter Visit Diagnoses Not on filedocumented in this encounter Care Teams Forest Landscape Ecology Professor Relationship Specialty Start Date End Date Rl Medina DO [address] [place] [address] PCP - General 08/09/17 05/25/24 documented as of this encounter
--- OUTSIDE RECORDS SUMMARY | 2024-11-05 19:28 | XMS_ITS | Encounter Summary ---
Author Organization [facility] Address [address] [place] [address] Phone Care Team Providers Care Director Of Physical Security Name Role Phone Rl Medina DO Primary Care Provider Reason for Referral * (Routine) - Closed Specialty Diagnoses / Procedures Referred By Manisha gale Referred To Contact Diagnoses Primary osteoarthritis of left knee Procedures Large Joint Injection: L knee Pancho Sue PA Phone: tel: fax: [facility] (All Locations) Referral ID Status Reason Start Date Expiration Date Visits Re quested Visits Authorized [id number] Closed 12/08/2019 2021 1 1 RAL UTILITY WORKER Reason for Visit * Reason Comments Pain Injections Encounter Details Date Type Department Care Team (Latest Contact Info) Description 12/08/2019 10:40 AM GENERAL UTILITY WORKER Office Visit [facility] Orthopaedic Surgery [address] 2nd [address] [place] [address] Pancho Sue PA [address] [place] [address] Primary osteoarthritis of left knee (Primary Dx) Social History Tobacco Use Types Packs/Day Years Used Date Smoking Tobacco: Former Cigarettes 1 11 9 - 1979 Smokeless Tobacco: Never Alcohol Use Standard Drinks/Week Comments Yes 14 (1 standard drink = 0.6 oz pu re alcohol) social Sex and Gender Information Value Date Recorded Sex Assigned at Not on file 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 2.) You may resume taking ANY pain relieving medications immediately after the procedures, including anti-inflammatories. 3.) You may resume any blood thinners after the procedures. 4.) The numbing medication usually wears off 2-4 hours after the procedure. 5.) Ice the area 20 minutes at a time the day of the injection and the day after. 6.) The day after the injection you may feel worse than you did before you received the injection (refer to #5). 7.) If you are a diabetic please monitor your blood sugars the day of the injection and the day after. The cortisone may increase your blood sugars. 8.) The steroid medication usually takes up to TEN days to start to take effect and TWO WEEKS to have a full beneficial effect. 9.) If you have any questions regarding your procedure, please do not hesitate to contact the performing doctor???s office. RAL UTILITY WORKER documented in this encounter Progress Notes * Pancho Sue PA - 12/08/2019 10:40 AM CSTAssociated Order(s): Large Joint Injection: L knee Post-Procedure Diagnose(s): Primary osteoarthritis of left knee ESTABLISHED PATIENT VISIT CHIEF COMPLAINT: Chief Complaint Patient presents with ??? Left Knee - Pain, Injections HISTORY OF PRESENT ILLNESS: 61-year-old gentleman known to Dr. Heard's service for revision right total knee arthroplasty reports right knee's doing fairly well. He did old quite a bit of walking and lost Gilmar last week he had some swelling in the right knee and ankle but does not require the use of pain medication. He presents today for left knee injection and is tentatively scheduled for primary left total knee arthroplasty in February. They reports of generalized pain on the medial side of the left knee and swelling associated with prolonged walking or standing. PHYSICAL EXAMINATION: Patient transfer [id number] pushing up on the arms chair ambulates with slow steady gait using noassistive devices. Inspection of the surgical right knee reveals no obvious signs of infection well-healed incision with a mild joint effusion. Mild dependent edema right lower extremity. Left knee had a mild joint effusion no signs of infection. Tenderness over the medial aspect of the left knee. Active range of motion left knee 5??-125??. Left knee stable valgus varus stress with ability to correct back to near neutral position valgus stress applied 30?? of flexion. Quadriceps strength seemedadequate on the left. Neurovascular intact left lower extremity XRAYS/REVIEW OF STUDIES: None. Reviewed his x-rays from July of 2019 which revealed near [id number] degenerative changes medial compartment on the standing AP ASSESSMENT/PLAN: Advanced left knee osteoarthritis Today under sterile conditions we 1st aspirated approximately 4 cc of normal appearing synovial fluid from the left knee and then infused the joint Marcaine steroid mixture. Patient will base his decision on whether to undergo primary left total knee arthroplasty in February on how he responds to today's aspiration steroid injection. Encouraged patient to try spinning on a stationary bike to help facilitate resolution of his right knee joint effusion. Large Joint Injection: L knee Date/Time: 12/08/2019 11:35 AM Performed by: BONITA Costa Authorized by: BONITA Costa Procedure Details: Location: Knee Site: L knee Medications: 6 mL bupivacaine 0.5 % (5 mg/mL); 80 mg methylPREDNISolone acetate 40 mg/mL Aspirate amount (mL): 4 Aspirate: Yellow Today under sterile conditions the knee was injected with the above medications. Patient tolerated the procedure well and we discussed postinjection care which includes decreased weightbearing activities for the next few days. Pancho Sue PA-C Joint Reconstructive Service [facility] Orthopedic Surgery RAL UTILITY WORKER documented in this encounter Plan of Treatment Not on file documented as of this encounter Procedures Procedure Name Priority Date/Time Associated Diagnosis Comments NE ARTHROCENTESIS ASPIR&/INJ MAJOR JT/BURSA W/O US Routine 12/08/2019 10:40 AM GENERAL UTILITY WORKER Primary osteoarthritis of left knee documented in this encounter Results * NE ARTHROCENTESIS ASPIR&/INJ MAJOR JT/BURSA W/O US (12/08/2019 10:40 AM GENERAL UTILITY WORKER) Pancho Guzman PA - 12/08/2019 10:40 AM GENERAL UTILITY WORKER BONITA Costa ? 12/08/2019 ??3:45 PM Large Joint Injection: L knee Date/Time: 12/08/2019 11:35 AM Performed by: BONITA Costa Authorized by: BONITA Costa Procedure Details: ??Location: ??Knee ??Site: ??L knee ??Medications: ??6 mL bupivacaine 0.5 % (5 mg/mL); 80 mg methylPREDNISolone acetate 40 mg/mL ??Aspirate amount (mL): ??4 ??Aspirate: ??Yellow ?? Today under sterile conditions the knee was injected with the above medications. Patient tolerated the procedure well and we discussed postinjection care which includes decreased weightbearing activities for the next few days. us Pancho [facility]/BEDSIDE ORDERABLES Final Result documented in this encounter Visit Diagnoses Diagnosis Primary osteoarthritis of left knee- Primary documented in this encounter Administered Medications Inactive Administered Medications - up to 3 most recent administrations Medication Order MAR Action Action Date Dose Rate Site bupivacaine (MARCAINE) 0.5 % (5 mg/mL) injection 6 mL 6 mL, other, One-Time Injection, Starting on Sun12/08/19 at 1135, For 1 doseIndications:Primary osteoarthritis of left knee Given 12/08/2019 11:35 AM GENERAL UTILITY WORKER 6 mL methylPREDNISolone acetate (DEPO-medrol) injection 80 mg 80 mg, intra-articular, One-Time Injection, Starting on Sun12/08/19 at 1135, For 1 doseIndications:Primary osteoarthritis of left knee Given 12/08/2019 11:35 AM GENERAL UTILITY WORKER 80 mg documented in this encounter Historical Medications * This list may reflect changes made after this encounter. ondansetron (Zofran) 4 mg tablet Take 1 tablet by mouth every 6 hours 10/24/2018 08/09/2021 added in this encounter Care Teams Director Of Physical Security Relationship Specialty Start Date End Date Rl Medina DO [address] [place] [address] PCP - General 08/09/17 05/25/24 documented as of this encounter
--- OUTSIDE RECORDS SUMMARY | 2024-11-05 19:28 | XMS_ITS | Encounter Summary ---
Author Organization [facility] Address [address] [place] [address] Phone Care Team Providers Care Clerical Office Name Role Phone Rl Medina DO Primary Care Provider Reason for Referral * Diagnostic Imaging (Routine) - Closed Specialty Diagnoses / Procedures Referred By Manisha gale Referred To Contact Diagnoses Unilateral primary osteoarthritis, left knee Aftercare following right knee joint replacement surgery Procedures XR Knee Right 3 Views Fransisco Heard MD [address] [address] Phone: tel: fax: [facility] Radiology [address] [place] [address] Phone: tel: Referral ID Status Reason Start Date Expiration Date Visits Re quested Visits Authorized [id number] Closed 08/03/2021 09/02/2022 1 1 * Diagnostic Imaging (Routine) - Closed Specialty Diagnoses / Procedures Referred By Manisha gale Referred To Contact Diagnoses Unilateral primary osteoarthritis, left knee Aftercare following right knee joint replacement surgery Procedures XR Knee Left 3 Views Fransisco Heard MD [address] [facility] [address] [place] [address] Phone: tel: fax: [facility] Radiology [address] [place] [address] [address] [place] [address] Phone: tel: Referral ID Status Reason Start Date Expiration Date Visits Re quested Visits Authorized [id number] Closed 08/03/2021 09/02/2022 1 1 Reason for Visit * Reason Comments Pain Pain Encounter Details Date Type Department Care Team (Late st Contact Info) Description 08/09/2021 1:30 PM CDT Office Visit [facility] Orthopaedic Surgery [address] [facility] [address] [place] [address] Fransisco Heard MD [address] [facility] [address] [place] [address] Unilateral primary osteoarthritis, left knee (Primary Dx); Aftercare following right knee joint [...] on file 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 Gender Identity Not on file Sexual Orientation Not on file documented as of this encounter Last Filed Vital Signs Vital Sign Reading Time Taken Comments Blood Pressure - - Pulse - - Temperature - - Respiratory Rate - - Oxygen Saturation - - Inhaled Oxygen Concentration - - Weight 89.4 kg (197 lb) 08/09/2021 1:57 PM CDT Height 172.7 cm (5' 8 ) 08/09/2021 1:57 PM CDT Body Mass Index 29.95 08/09/2021 1:57 PM CDT documented in this encounter Progress Notes * Fransisco Heard MD - 08/09/2021 1:30 PM CDT This is a patient with long-term chronic pain of the left knee there was previously scheduled for surgery but postponed due to COVID currently has pain in the this constant severe. It is diffuse. He has had series of injections and NSAIDs without relief. On exam he has 5 degree flexion contracture 5 degree varus deformity further flexion to 110?? no instability stress testing 1+ effusion 1+ crepitus to flexion and extension. Radiographs show complete loss of articular cartilage medially with osteophyte formation and tibialtranslation. Based on his severe degree of symptoms and failure to respond to conservative treatment physical exam and radiographs he has can excellent candidate for left total knee replacement prior risks benefits alternatives were discussed in wants proceed with this option in the near future. documented in this encounter Miscellaneous Notes * Addendum Note - Valarie Escudero RN - 08/09/2021 1:30 PM CDTAddended by: VALARIE EMERY on: 08/09/2021 03:02 PM Modules accepted: Orders documented in this encounter Plan of Treatment Not on file documented as of this encounter Results * XR Knee Right 3 Views (08/09/2021 [...] PROCEDURES Final Res ult * XR Knee Left 3 Views (08/09/2021 [...] Visit Diagnoses Diagnosis Unilateral primary osteoarthritis, left knee- Primary Aftercare following right knee joint replacement surgery Unilateral primary osteoarthritis, left knee Aftercare following right knee joint replacement surgery documented in this encounter Discontinued Medications Medication Sig Discontinue Reason Start Date End Da te oxyCODONE-acetaminophe n (PERCOCET) 5-325 mg per tabletIndications:Pain Take 1-2 tablets by mouth every 4 (four) hours as needed for pain Therapy completed 10/01/2019 08/09/2021 senna-docusate (PERICOLACE) 8.6-50 mgIndications:constipa tion Take 2 tablets by mouth 2 (two) times a day May increase to 4 tablets twice daily if needed. HOLD medication for diarrhea. Therapy completed 10/01/2019 08/09/2021 aspirin 325 mg enteric coated tabletIndications:Deep Vein Thrombosis Prevention Take 1 tablet (325 mg total) by mouth 2 (two) times a day Therapy completed 10/01/2019 08/09/2021 zolpidem (AMBIEN) 10 mg tabletIndications:Slee p-Onset Insomnia Take 10 mg by mouth nightly as needed Alternate therapy 08/09/2021 ondansetron (Zofran) 4 mg tablet Take 1 tablet by mouth every 6 hours Therapy completed 10/24/2018 08/09/2021 losartan (COZAAR) 100 mg tabletIndications:hype rtension 100 mg every morning Alternate therapy documented as of this encounter Care Teams Clerical Office Relationship Specialty Start Date End Date Rl Medina DO [address] [place] [address] PCP - General 08/09/17 05/25/24 documented as of this encounter
--- OUTSIDE RECORDS SUMMARY | 2024-11-05 19:28 | XMS_ITS | Encounter Summary ---
Author Organization [facility] Address [address] [place] [address] Phone Care Team Providers Care Yarn Bleaching Machine Operator Name Role Phone Rl Medina DO Primary Care Provider Encounter Details Date Type Department Care Team (Late st Contact Info) Description 10/16/2019 Telephone [facility] Orthopaedic Surgery [address] [place] [address] 2nd [address] [place] [address] Alonso Tiwari MD [facility] [place] [address], [place] [address] Social History Tobacco Use Types Packs/Day Years Used Date Smoking Tobacco: Former Cigarettes 1 11 1 969 - 1980 Smokeless Tobacco: Never Alcohol Use Standard Drinks/Week Comments Yes 14 (1 standard drink = 0.6 oz pu re alcohol) social Sex and Gender Information Value Date Recorded Sex Assigned at Not on file 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 Pt will continue w/home exercises, and will be getting d/c tomorrow. RIST FORMULATOR documented in this encounter Plan of Treatment Not on file documented as of this encounter Visit Diagnoses Not on filedocumented in this encounter Care Teams Yarn Bleaching Machine Operator Relationship Specialty Start Date End Date Rl Medina DO [address] [place] [address] PCP - General 08/09/17 05/25/24 documented as of this encounter
--- OUTSIDE RECORDS SUMMARY | 2024-11-05 19:28 | XMS_ITS | Encounter Summary ---
Author Organization [facility] Address [address] [place] [address] Phone Care Team Providers Care Ramp Agent Name Role Phone Rl Medina DO Primary Care Provider Encounter Details Date Type Department Care Team (Late st Contact Info) Description 08/09/2021 Orders Only [facility] Orthopaedic Surgery [address] [place] [address] Medical Office Building [address] [place] [id number] Fransisco Heard MD [facility] [address] [place] [address] Social History Tobacco Use Types Packs/Day Years Used Date Smoking Tobacco: Former Cigarettes 1 11 1 969 - 1980 Smokeless Tobacco: Never Alcohol Use Standard Drinks/Week Comments Yes 14 (1 standard drink = 0.6 oz pu re alcohol) social Sex and Gender Information Value Date Recorded Sex Assigned at Not on file 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 TAKE 1 PILL BID FOR 4 DAYS AFTER DISCHARGE. 10 capsule 08/09/2021 mupirocin (BACTROBAN) 2 % ointment Apply topically 2 (two) times a day for 5 days APPLY TO NOSTRILS TWICE A DAY FOR 5 DAYS PRIOR TO SURGERY. 22 g 08/09/2021 documented in this encounter Plan of Treatment Not on file documented as of this encounter Visit Diagnoses Not on filedocumented in this encounter Care Teams Ramp Agent Relationship Specialty Start Date End Date Rl Medina DO [address] [place] [address] PCP - General 08/09/17 05/25/24 documented as of this encounter
--- OUTSIDE RECORDS SUMMARY | 2024-11-05 19:28 | XMS_ITS | Encounter Summary ---
Author Organization [facility] Address [address] [place] [address] Phone Care Team Providers Care Personal Caregiver Name Role Phone Rl Medina DO Primary Care Provider Encounter Details Date Type Department Care Team (Late st Contact Info) Description 09/24/2019 Orders Only [facility] Orthopaedic Surgery [address] [facility] [address] [place] [address] Fransisco Heard MD [address] [place] [address] Right knee pain, unspecified chronicity (Primary Dx); [...] on file 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 RN TRIAGE Gender Identity Not on file Sexual Orientation Not on file documented as of this encounter Miscellaneous Notes * Addendum Note - Aleja Cat - 09/24/2019 9:51 AM CSTAddended by: ALEJA CAT on: 09/30/2019 10:22 AM Modules accepted: Orders TRIAGE * Addendum Note - Aleja Cat - 09/24/2019 9:51 AM CSTAddended by: ALEJA CAT on: 09/30/2019 10:25 AM Modules accepted: Orders TRIAGE documented in this encounter Plan of Treatment Not on file documented as of this encounter Procedures Procedure Name Priority Date/Time Associated Diagnosis Comments CBC WITH AUTO DIFFERENTIAL Routine 09/30/2019 10:22 AM RN TRIAGE Right knee pain, unspecified chronicity Aftercare following right knee joint replacement surgery CRP (ACUTE PHASE) Routine 09/30/2019 9:5 8 AM RN TRIAGE Right knee pain, unspecified chronicity Aftercare following right knee joint replacement surgery documented in this encounter Results * CBC with auto differential (09/30/2019 10:22 AM RN TRIAGE) Blood specimen (specimen) Fransisco Heard MD LAB BLOOD ORDERABLES Final Result Performing Organization Address City/[facility] Co de Phone Number EXTERNAL LAB * CRP (acute phase) (09/30/2019 9:58 AM RN TRIAGE) Blood specimen (specimen) Fransisco Heard MD LAB BLOOD ORDERABLES Final Result Performing Organization Address [facility] Co de Phone Number EXTERNAL LAB documented in this encounter Visit Diagnoses Diagnosis Right knee pain, unspecified chronicity- Primary Aftercare following right knee joint replacement surgery documented in this encounter Care Teams Personal Caregiver Relationship Specialty Start Date End Date Rl Medina DO [address] [place] [address] PCP - General 08/09/17 05/25/24 documented as of this encounter
--- OUTSIDE RECORDS SUMMARY | 2024-11-05 19:28 | XMS_ITS | Encounter Summary ---
Author Organization [facility] Address [address] [place] [address] Phone Care Team Providers Care Die Maker Electronic Name Role Phone Rl Medina DO Primary Care Provider Reason for Referral * Consultation (Routine) - Closed Specialty Diagnoses / Procedures Referred By Manisha gale Referred To Contact Physical Therapy Diagnoses Primary osteoarthritis of left knee Fransisco Heard MD [address] [facility] [address] [place] [address] Phone: tel: fax: External Order Referral ID Status Reason Start Date Expiration Date V isits Requested Visits Authorized [id number] Closed Specialty Services Required 10/19/2021 11/18/2022 12 12 Question Answer PTRFR PT Evaluate and Treat Therapy options discussed with patient? Yes Location provided for therapy services is: Patient requested/Patient preferred Please select the performing region: External Order [[id number]] Comments POST-OPERATIVE TOTAL KNEE - PHYSICAL THERAPY REFERRAL DATE: 10/19/2021 1951 Diagnosis: Left Total Knee Replacement Date of Surgery: 10/17/21 F: [phone] Duration of therapy: 2-3 times per week for 4-6 weeks Evaluate and Treat Weight Bearing Status: Full weight bearing bilateral lower extremity Active/Active Assisted ROM, Passive ROM, Strengthening, Gait Training and Modalities Restrictions: no squats past 90 degrees; patient has home program with clinical study Fransisco Heard M.D., , Fransisco Heard MD N WAFER MACHINE OPERATOR Encounter Details Date Type Department Care Team (Late st Contact Info) Description 10/19/2021 Orders Only [facility] Orthopaedic Surgery [address] [facility] Office [address] [place] [address] Fransisco Heard MD [address] [place] [address] Primary osteoarthritis of left knee (Primary Dx) [...] alcohol? 4 or more times a week 10/17/2021 Q2: How many drinks containi ng alcohol do you have on a typical day when you are drinking? 1 or 2 Q3: How often do you have si x or more drinks on one occasion? 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 Gender Identity Not on file Sexual Orientation Not on file documented as of this encounter Plan of Treatment Scheduled Referrals Name Type Priority Associated Diagnoses Orde r Schedule Ambulatory referral order to Physical Therapy - Outpatient Referral Routine Primary osteoarthritis of left knee Ordered: 10/19/2021 documented as of this encounter Visit Diagnoses Diagnosis Primary osteoarthritis of left knee- Primary documented in this encounter Care Teams Die Maker Electronic Relationship Specialty Start Date End Date Rl Medina DO [address] [place] [address] PCP - General 08/09/17 05/25/24 documented as of this encounter
--- OUTSIDE RECORDS SUMMARY | 2024-11-05 19:28 | XMS_ITS | Encounter Summary ---
Author Organization [facility] Healthcare Address [address] [place] [address] Care Team Providers Care Senior Oracle Developer Name Role Phone Krunal Medinarodrigo WashburnBernie RUIZ Primary Care Provider Encounter Details Date Type Department Care Team (Late st Contact Info) Description 10/17/2021 12:55 PM SLOT OPERATIONS DIRECTOR - 10/17/2021 3:30 PM SLOT OPERATIONS DIRECTOR Surgery [facility] Operating Room [address] [place] [address] Fransisco Heard MD [address] [place] [address] ARTHROPLASTY LEFT TOTAL KNEE ? GALE ROBOTIC ARM Surgery Details Date/Time Status Location OR Service Patient Class Case Class Case Type Trauma Case? 10/17/2021 12:55 PM Posted [facility] OPERATING ROOM OR Orthopaedics Outpatient in Bed Elective Panel 1 Procedure LRB Anes Op Region Wound Class Comments ARTHROPLASTY LEFT TOTAL KNEE ? GALE ROBOTIC ARM Left Spinal Knee Class I - Clean Surgeon Surgeon Role Service Panel Laz Nolasco MD Fellow Orthopaedics 1 Fransisco Heard MD Primary Orthopaedics 1 Special Needs Hoods documented in this encounter Social History Tobacco [...] file 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 SLOT OPERATIONS DIRECTOR Gender Identity Not on file Sexual Orientation Not on file documented as of this encounter Last Filed Vital Signs Vital Sign Reading Time Taken Comments Blood Pressure 116/56 10/17/2021 1:35 PM SLOT OPERATIONS DIRECTOR Pulse 50 10/17/2021 1:35 PM SLOT OPERATIONS DIRECTOR Temperature 36.4 ??C (97.52 ??F) 10/17/2021 1:[address] Respiratory Rate 54 10/17/2021 1:35 PM SLOT OPERATIONS DIRECTOR Oxygen Saturation 100% 10/17/2021 1:35 PM SLOT OPERATIONS DIRECTOR Inhaled Oxygen Concentration - - Weight 89 kg (196 lb 3.2 oz) 10/17/2021 10:47 AM SLOT OPERATIONS DIRECTOR Height 172.7 cm (5' 8 ) 10/17/2021 10:47 AM SLOT OPERATIONS DIRECTOR Body Mass Index 29.83 10/17/2021 10:47 AM SLOT OPERATIONS DIRECTOR documented in this encounter Discharge Summaries * Vibha Taylor NP - 10/18/2021 6:50 AM CST Inpatient Discharge Summary Admitting Provider: Fransisco Heard MD Discharge Provider: Fransisco Heard MD Primary Care Physician at Discharge: Rl Medina DO [phone] Admission Date: 10/17/2021 Discharge Date: 10/18/2021 Primary Discharge Diagnosis: Primary osteoarthritis of left knee Secondary Discharge Diagnosis: Principal Problem: Primary osteoarthritis of left knee Active Problems: HTN (hypertension) Risk factors for obstructive sleep apnea Resolved Problems: No resolved hospital problems. DETAILS OF HOSPITAL STAY Date of Admission: 10/17/2021 Date of Discharge: 10/18/2021 Procedure Performed: Left Total Knee Arthroplasty Chief Complaint: Left knee pain History of Present Illness: The patient is a 71 y.o. year old male cared for by Dr. Fransisco Heard. The risks, benefits, alternatives and complications of a left total knee arthroplasty was discussed with the patient at length prior to surgery. The patient elected to proceed with a surgical intervention given the significant i nfluence on their quality of life. Informed consent was obtained prior to surgery. Physical Exam: On the day of discharge, the patient was afebrile with stable vital signs. Examination of the left lower extremity revealed the patient was neurovascularly intact. Incision was clean, dry and intact.Pain was adequately maintained on oral opiates. Hospital Course: The patient was admitted on 10/17/2021 and underwent a left total knee arthroplasty. The patient tolerated the procedure well and was taken in stable condition to the postoperative recovery room thentransferred to the orthopedic floor in stable condition. The patient progressed well and was able to be weaned off IV opiates. The patient participated with physical and occupational therapy and was deemed stable for discharge. He was maintained on Aspirin for deep venous thrombosis prophylaxis. Pain was adequately maintained on oral opiates. The patient was discharged in stable condition to home with home health care on 10/18/2021. Discharge Medications: Your medication list START taking these medications Instructions Last Dose Given Next Dose Due aspirin 81 mg enteric coated tablet Take 1 tablet (81 mg total) by mouth 2 (two) times a day oxyCODONE-acetaminophen 5-325 mg per tablet Commonly known as: PERCOCET Take 1-2 tablets by mouth every 4 (four) hours as needed for pain senna-docusate 8.6-50 mg Commonly known as: PERICOLACE Take 2 tablets by mouth 2 (two) times a day CHANGE how you take these medications Instructions Last Dose Given Next Dose Due CeleBREX 100 mg capsule Generic drug: celecoxib What changed: additional instructions CONTINUE taking these medications Instructions Last Dose Given Next Dose Due acyclovir 400 mg tablet Commonly known as: ZOVIRAX cholecalciferol 5,000 unit capsule Commonly known as: VITAMIN D-3 Claritin 10 mg tablet Generic drug: loratadine DILT-XR 240 mg 24 hr capsule Generic drug: dilTIAZem XR irbesartan 300 mg tablet Commonly known as: AVAPRO Myrbetriq 25 mg tablet extended release 24 hr Generic drug: mirabegron ER omeprazole 20 mg capsule Commonly known as: PriLOSEC polyethylene glycol 17 gram/dose powder Commonly known as: MIRALAX sildenafiL (pulm.hypertension) 20 mg tablet Commonly known as: REVATIO Visine Tired Eye Relief 1-0.36-0.2 % drops Generic drug: peg [id number] STOP taking these medications ciprofloxacin 500 mg tablet Commonly known as: CIPRO COENZYME Q10 ORAL turmeric root extract 500 mg capsule Tylenol Extra Strength 500 mg tablet Generic drug: acetaminophen Where to Get Your Medications These medications were sent to [facility] [address] [address] [facility] [address] [facility] [address] aspirin 81 mg enteric coated tablet oxyCODONE-acetaminophen 5-325 mg per tablet senna-docusate 8.6-50 mg Discharge Activity: Weight bearing: Weight bearing as tolerated left lower extremity Assistive Devices: Walker or crutches for all walking DVT prophylaxis: Aspirin 81mg twice daily for 30 days Discharge Diet: Resume previous diet Follow-up: Dr. Fransisco Heard. on 11/08/2021 at 11:45am at [facility], [address] [place] [address], Medical Office Building [address], [address] [address]. Condition on Discharge: Stable Cosigned by Fransisco Heard MD at 10/18/2021 3:12 PM SLOT OPERATIONS DIRECTOR OPERATIONS DIRECTOR OPERATIONS DIRECTOR documented in this encounter Discharge Instructions * Discharge Instr - Other Orders* Melissa Roth RN - 10/18/2021 9:16 AM SLOT OPERATIONS DIRECTOR has not secured home care yet. I gave pt the Virtual PT paper work if I can not secure home carehe has agreed to virtual services thru [facility]. I will call pt to f/u. OPERATIONS DIRECTOR documented in this encounter Medications at Time [...] pain 56 tablet 10/17/2021 02/08/20 22 peg [id number]-j lycerin 1-0.36-0.2 % dropsIndications:D ry Eye Administer [...] Refills Last Filled Start Date End Date senna-docusate (PERICOLACE) 8.6-50 mg Take 2 tablets by mouth 2 (two) times a day 80 tablet 1 10/18/2021 2 aspirin 81 mg enteric coated tabletIndications: prevention of thrombosis Take 1 tablet (81 mg total) by mouth 2 (two) times a day 60 tablet 10/18/2021 2 oxyCODONE-acetamin ophen (PERCOCET) 5-325 mg per tabletIndications: Pain Take 1-2 tablets by mouth every 4 (four) hours as needed for pain 56 tablet 10/17/2021 2 documented in this encounter Discharge Disposition Disposition Code Departure Means Destination Discharge to home, home health skilled care documented in this encounter Progress Notes * Laz Nolasco MD - 10/18/2021 8:14 AM CST Ortho Recon Daily Progress Subjective This patient is postoperative day 1 following L TKA Interval History: Did well post op and transferred to the regular floor. Ambulated with PT in room.NAEO. This AM feels well. Has been voiding appropriately. Pain controlled. Denies fever/chills/nausea/vomiting/diarrhea. Objective Vitals: 24hr Min/Max: Temp Min: 35.7 ??C (96.26 ??F) Max: 36.8 ??C (98.24 ??F) Pulse Min: 49 Max: 74 BP Min: 107/58 Max: 171/87 Resp Min: 12 Max: 68 SpO2 Min: 91 % Max: 100 % Most Recent : Vitals: 10/18/21 0353 BP: 137/83 Pulse: 64 Resp: 18 Temp: 36.4 ??C (97.5 ??F) SpO2: 94% I/O last 2 completed shifts: In: 6573.3 [P.O.:1300; I.V.:3173.3; IV Piggyback:2100] Out: 3275 [Urine:3075; Blood:200] No intake/output data recorded. Surgical Site 10/17/21 Left Knee (Active) Site Assessment BIBI 10/17/211999 Ruben-wound Assessment BIBI 10/17/211999 Closure Unable to assess 10/17/211999 Drainage Amount None 10/17/21 1800 Dressing Status Clean, dry, intact 10/17/211999 Dressing Moses wrap 10/17/211999 Physical Exam: Awake, alert, oriented No acute distress Breathing regular and unlabored Dressing clean and dry Sensation intact in the superficial peroneal, deep peroneal, and tibial nerves 5/5 strength TA, GS, EHL, FHL Dorsalis pedis pulse on affected limb palpable Lab/Radiology/Diagnostic Review: Laboratory review: Lab results in the last 12 hours: Recent Results (from the past 12 hour(s)) Basic metabolic panel Collection Time: 10/18/21 4:03 AM Result Value Ref Range Sodium 135 135 - 145 mmol/L Potassium, pl 4.2 3.3 - 4.9 mmol/L Chloride 100 97 - 110 mmol/L CO2 26 22 - 32 mmol/L Anion gap 9 2 - 15 mmol/L BUN 14 8 - 25 mg/dL Creatinine 0.70 (L) 0.80 - 1.30 mg/dL Glucose 209 (H) 70 - 199 mg/dL Calcium 8.8 8.5 - 10.3 mg/dL CBC without differential Collection Time: 10/18/21 4:03 AM Result Value Ref Range WBC 9.0 3.8 - 9.9 K/cumm Hgb 13.3 13.0 - 17.5 g/dL Hct 37.9 (L) 38.9 - 50.3 % Plt 138 (L) 150 - 400 K/cumm MPV 11.1 9.1 - 12.3 fL RBC 4.12 (L) 4.30 - 5.80 M/cumm MCV 92.0 81.3 - 96.4 fL MCH 32.3 27.1 - 33.3 pg MCHC 35.1 32.3 - 35.7 g/dL RDW CV 11.7 11.1 - 14.9 % RDW SD 39.7 35.7 - 48.1 fL NRBC abs 0.00 0.00 - 0.01 K/cumm eGFR Collection Time: 10/18/21 4:03 AM Result Value Ref Range eGFR 99 mL/min/1.73 m2 Assessment/Plan Remove Harris Catheter Weight bearing:Weight bearing as tolerated left lower extremity Mobilize with Physical therapy Pain: controlled on current regimen DVT prophylaxis: Aspirin/SCDs Additional needs: none Discharge planning: Home with home health pending PT clearance Cosigned by Fransisco Heard MD at 10/18/2021 3:13 PM SLOT OPERATIONS DIRECTOR OPERATIONS DIRECTOR OPERATIONS DIRECTOR * Lu Maria, PT - 10/18/2021 7:00 AM CST [facility] Physical Therapy Treatment Patient Name: Hira Evans Date of Service: 10/18/2021 Date of : 1950 Age: 71 y.o. male Room: [address] Admit Date: 10/17/2021 Attending Provider: Fransisco Heard MD Primary Diagnosis: Primary osteoarthritis of left knee Subjective HPI: Hira Evans is a 71 y.o. male POD 1 s/p left total knee arthroplasty with Dr. Heard. Patient is agreeable to physical therapy treatment. Precautions: Fall Risk Weightbearing Status: Weightbearing as tolerated (WBAT) on left Lower Extremity Patient Comment: Pat would like to return to prior level of function Objective Vitals: Comments: Pat vitals appropriate prior to therapy visit and remained stable during therapy session. Activity Tolerance: Endurance: Tolerates 30 minutes of activity with multiple rests Pain Assessment: Pre-treatment pain: 0 /10 Post-treatment pain: 0 /10 Location: Pat reported no pain Cognition: Overall Cognitive Status: At Baseline Arousal: Alert Orientation: Oriented x4 (person, place, time, and situation) Following Commands: Follows all commands and directions without difficulty Behavior: Easy to engage Lower Extremity Assessment: left Knee ROM: 0o-87o Active supine Bed Mobility: Patient performs supine to edge of bed with modified independence pt used upper extremity support. Transfers: Patient performs sit to and from stand with wheeled walker and modified independence. Gait: Patient ambulates x 150 feet with wheeled walker and modified independence. Stairs: Patient negotiates 2 stairs with 1 hand railing and distant supervision. Gait belt was used for all out of bed mobility. Therapeutic Exercise: Seated quad set 1x10 Seated knee extension 1x10 Seated kicking 1x10 Seated heel slide 1x10 Glute set 1x10 Straight leg raise 1x10 Manual knee extension 1x10 Seated marching 1x10 Seated heel raise 1x10 Seated heel cord stretch 30s x3 Knee bend over towel 1x10 Hamstring stretch with hands 30s x3 Ankle pumps 1x10 Heel pull with toe in 1x10 Heel pull with toe out 1x10 Comments: Per myMobility protocol Rosa performed some of the exercises and reviewed verbally the ones not covered. Rosa states he has been performing these exercises for some time and has no further questions. Formal Balance Assessment: Formal balance assessment not indicated due to recent surgery. Assessment Prognosis: Good Response to today???s treatment: Good Completed patient handoff and notified RN of patient???s location and functional status upon completion of session. RN okayed physical therapy and patient agreeable. In AM, pt found supine and required modified independence for bed mobility. Patient performed sit <> stand with modified independence. Patient ambulated 150 feet with wheeled walker modified independence. Patient was left sitting at end of therapy session. RN notified. Education: Patient and family has been educated on the role of physical therapy, safety, precautions, mobility training, stairs and home exercise program. Education completed via explanation, teach back, demonstration and handout . Patient and family verbalized understanding and demonstrated understanding. Handouts Issued: None issued this visit Barriers to discharge: None Care Plan Goals established: 10/17/21 ?? 1. The patient will perform bed mobility including supine to/from sit with modified independence inorder to safely return home by 10/19/2021. Comments: Completed ?? 2. The patient will perform sit to/from stand transfers using wheeled walker and modified independence in order to safely return home by 10/19/2021. Comments: Completed ?? 3. The patient will ambulate 150 feet using wheeled walker and modified independence in order to safely return home by 10/19/2021. Comments: Completed ?? 4. The patient will ascend/descend 2 stairs with 1 handrail and close supervision in order to safely return home by 10/19/2021. Comments: Completed ?? 5. The patient will perform HEP appropriately per protocol with assistance from joint assistant men's soccer coach as needed in order to safely return home by 10/19/2021. Comments: Completed ?? Plan Physical therapy frequency: Other (comment) (PT D/C) Recommended equipment to safely discharge: wheeled walker - patient already owns Recommended method of transportation at discharge: Personal vehicle with family Referrals Recommended: None Patient okay to discharge: Yes Discharge Recommendation: Home with family,Home Health PT Lu Maria PT OPERATIONS DIRECTOR * Kasey Jones RN - 10/14/2021 2:46 PM CST 10/14/21 1444 Information Information Obtained From Patient Referral Data Referral Source Physician Referral Reason Discharge Planning Prior to Admission Primary Caregiver Self Support System Spouse/Significant Other Support system contact info (name, phone, availablity) /WILY Val Evans [phone] Home Care Services Yes Type of Home Care Services Home therapies;Nurse visit Durable Medical Equipment Walker (wheeled) Living Arrangements Spouse/significant other Type of Residence Private residence OPERATIONS DIRECTOR * Kasey Jones RN - 10/14/2021 2:44 PM CST 10/14/21 1444 Communications Patient choice (Home Health/Hospice) list given to patient/chemical sales representative? Yes No HH preference OPERATIONS DIRECTOR documented in this encounter H&P Notes * Fransisco Heard MD - 10/17/2021 11:25 AM CST I have reviewed the H&P, examined the patient, and endorse the findings as written. Plan of Care : Based on the above findings, I consider Hira Evans to be an acceptable risk for : Procedure(s): ARTHROPLASTY LEFT TOTAL KNEE - GALE ROBOTIC ARM OPERATIONS DIRECTOR OPERATIONS DIRECTOR Source Note - Caron Valverde NP - 09/27/2021 10:15 AM SLOT OPERATIONS DIRECTOR Images from the original note were not included. Center for Preoperative Assessment and Planning Preoperative Evaluation Record Evaluation type/location: [facility] Planned procedure site: [facility] OR Date: 09/28/21 Anesthesia Evaluation Hira Evans is a 71 y.o. male Procedure(s): ARTHROPLASTY LEFT TOTAL KNEE - GALE ROBOTIC ARM Pre-Op Diagnosis Codes: * Primary osteoarthritis of left knee [M17.12] HISTORY HPI Hira Evans is a 69 y.o. male who is being evaluated prior to undergoing knee arthroplasty for severe pain. He has a PMH of HTN, GERD, and prostate cancer. Past Medical History Information obtained from: patient and chart. Neurological Pertinent negatives: seizures; neuromuscular disease; CVA/stroke; TIA; CEA; ICA stenosis; dementia/mild cognitive impairment and carotid artery stent Cardiovascular + Hypertension Typical systolic BP - 125 Typical diastolic BP - 85 Pertinent negatives: CAD ; TX ; CABG ; valvular heart disease; valve replacement; atrial fibrillation; arrhythmia; pacemaker/ICD; PVD; DVT/PE; negative for CHF; drug-eluting stent(s); bare metal stent(s); coronary angioplasty and hyperlipidemia Respiratory Pertinent negatives: COPD; asthma; sleep apnea (KYLE); pulmonary hypertension; no O2 use outside thehospital and non-smoker (quit in 1979) Hepatic / Heme + History of thrombocytopenia (in 2019 plt count 118 (09/30/19)) Pertinent negatives: liver disease; history of anemia and history of Jigna positive Gastrointestinal + GERD - on daily therapy. Asymptomatic. Pertinent negatives: hiatal hernia Renal / + Nephrolithiasis (approx 5 years ago) Pertinent negatives: renal disease and dialysis Musculoskeletal/Pain + Chronic pain (Right Knee) + Osteoarthritis (Right knee) Pertinent negatives: chronic opioid use; previous treatment for opioid use disorder and headaches Endocrine / Other + Obesity (BMI >30) + Cancer history- in remission. Cancer type: Hx of prostate cancer s/p prostatectomy in 2009 and melanoma on right flank s/p resected in 2006. Pertinent negatives: diabetes mellitus; thyroid disease; rheumatological disease; transplanted organ; infectious disease; eye disorder and pancreatitis Functional Capacity Functional capacity: 4-6 METs Comments: Patient reports they are able to walk 2 flights of stairs and 3-4 city blocks at a moderate pace without any significant SOB or CP. Review of Systems + chronic pain (Right Knee) + vision loss (Glasses) + heartburn Pertinent negatives: productive cough; wheezing; SOB; recent cold/flu; fever; chest pain; palpitations; orthopnea; pedal edema; PND; Sickle Cell disease/trait; previous transfusion; transfusion reaction; melena/hematochezia; easy bruising; bleeding problems; syncope; dizziness; muscle weakness; numb ness/tingling; hard of hearing; nausea; dysphagia; diarrhea; dentures/partials; chipped/loose teeth; abdominal pain; diaphoresis and no unexpected weight change Comments: Pt denies s/s of UTI (frequency,burning) Urgency since prostatectomy PAT Summary and Plans Cardiac risk classification of planned procedure: intermediate cardiac risk. Preoperative assessment status: lab tests ordered. Additional comments: Hira Evans is a 71 y.o. male who is being evaluated prior to undergoing anintermediate cardiac risk surgery. Revised Cardiac Risk Index factors are (none) for a total RCRI of 0 out of 6. Functional capacity is 4-6 METS . Obstructive sleep apnea (KYLE) screening status is STOP-Bang=4 suggesting moderate risk for KYLE, bicarbonate value pending. The patient is at elevated risk for obstructive sleep apnea (KYLE) per STOP-BANG screening questionnaire results. Patient informed of the possibility that they have undiagnosed KYLE, which may increase their risk for perioperative respiratory events. Patient also informed of the possible long-term health problems associated with KYLE. Because we do not feel that preoperative KYLE testing is likely to outweigh the downsides of delaying surgery, we have recommended that the patient talk to their primary doctor or other clinician after surgery about getting tested for KYLE. Blood bank needs for day of procedure: No type and screen needed Pending labs/tests include: CBC CMP Urinalysis flex Vitamin D Patient's COVID19 status is: Unexposed. The patient currently has no concerning symptoms of COVID19. . Patient's COVID-19 vaccination status is Fully vaccinated. Documentation of vaccination status is available in the Epic Immunization tab. . Plan for pre-procedure COVID19 testing: Surgery date greater than 4 days from today. Request placed for pre-procedure COVID19 testing to be performed on 10/15 in [place]. [facility] will place the order for testing. Result to be reviewed by surgeon's office. . Preoperative evaluation performed by Galina Ladd NP on 09/28/21 at 10:56 AM. . Follow up note Ordered labs as noted in documentation above reviewed and are without significant findings from a preoperative perspective. Surgeon's office reviews laboratory results independently. CPAP process complete. Follow-up completed by: Caron Valverde NP on 10/03/21 at 11:15 AM Patient Active Problem List Diagnosis ??? Knee pain ??? Presence of right artificial knee joint ??? Primary osteoarthritis of left knee ??? Failed total knee arthroplasty (CMS/HCC) (HCC) ??? Localized adiposity Past Medical History: Diagnosis Date ??? Arthritis OA ??? GERD (gastroesophageal reflux disease) ??? History of melanoma ??? Hypertension ??? Personal history of prostate cancer ??? Seasonal allergies Past Surgical History: Procedure Laterality Date ??? JOINT REPLACEMENT Right 2013 right knee replacement ??? MELANOMA RESECTION Right 2005 right flank ??? PROSTATECTOMY 2008 No Known Allergies Taking? Last Dose Start Date End Date Provider acetaminophen (Tylenol Extra Strength) 500 mg tablet 10/06/19 -- Fidelia Perdue MD acyclovir (ZOVIRAX) 400 mg tablet 06/08/19 -- Fidelia Perdue MD celecoxib (CeleBREX) 100 mg capsule 08/09/21 -- Fransisco Heard MD TAKE 2 PILLS WITH BREAKFAST THE DAY BEFORE SX. TAKE 1 PILL BID FOR 4 DAYS AFTER DISCHARGE. cholecalciferol (VITAMIN D-3) 5,000 unit capsule -- -- Fidelia Perdue MD ciprofloxacin (CIPRO) 500 mg tablet 08/27/19 -- Fidelia Perdue MD Notes: For dental procedures . cyanocobalamin (Vitamin B-12) 2,500 mcg tablet, sublingual -- -- Fidelia Perdue MD DILT-XR 240 mg 24 hr capsule 05/12/19 -- Fidelia Perdue MD irbesartan (AVAPRO) 150 mg tablet 12/10/19 -- Fidelia Perdue MD loratadine (CLARITIN) 10 mg tablet -- -- Fidelia Perdue MD MYRBETRIQ 25 mg tablet extended release 24 hr 07/08/19 -- Fidelia Perdue MD omeprazole (PriLOSEC) 20 mg capsule -- -- Fidelia Perdue MD peg [id number]-[id number]-xnopsrot (Visine Tired Eye Relief) 1-0.36-0.2 % drops 10/06/19 -- Fidelia Perdue MD polyethylene glycol (MIRALAX) 17 gram/dose powder 10/06/19 -- Fidelia Perdue MD sildenafil, antihypertensive, (REVATIO) 20 mg tablet -- -- Fidelia Perdue MD Current Outpatient Medications: ??? acetaminophen (Tylenol Extra Strength) 500 mg tablet ??? acyclovir (ZOVIRAX) 400 mg tablet ??? celecoxib (CeleBREX) 100 mg capsule ??? cholecalciferol (VITAMIN D-3) 5,000 unit capsule ??? ciprofloxacin (CIPRO) 500 mg tablet ??? cyanocobalamin (Vitamin B-12) 2,500 mcg tablet, sublingual ??? DILT-XR 240 mg 24 hr capsule ??? irbesartan (AVAPRO) 150 mg tablet ??? loratadine (CLARITIN) 10 mg tablet ??? MYRBETRIQ 25 mg tablet extended release 24 hr ??? omeprazole (PriLOSEC) 20 mg capsule ??? peg [id number]-njiybolrbexk-sdobmmqt (Visine Tired Eye Relief) 1-0.36-0.2 % drops ??? polyethylene glycol (MIRALAX) 17 gram/dose powder ??? sildenafil, antihypertensive, (REVATIO) 20 mg tablet Social History Tobacco Use Smoking Status Former Smoker ??? Packs/day: 1.00 ??? Types: Cigarettes ??? Start date: 1968 ??? Quit date: 1979 ??? Years since quittin.9 Smokeless Tobacco Never Used Substance and Sexual Activity Alcohol Use Yes ??? Alcohol/week: 14.0 standard drinks ??? Types: 14 Glasses of wine per week Comment: social Substance and Sexual Activity Drug Use Never Family History Problem Relation Age of Onset ??? Heart disease Other Family history of cardiac disorder - (Added by TW Conv) ??? Cancer Other Family history of malignant neoplasm - (Added by TW Conv) ??? Heart disease Mother ??? Anesthesia problems Neg Hx PAT Physical Exam Airway Exam: Mallampati: II Cervical ROM: FROM TM distance: >4 Upper lip bite test class: 1 Cardiovascular Exam: Rate: regular Rhythm: regular Negative for Murmur No extra heart sounds appreciated Negative for peripheral edema (Auscultation to carotids bilaterally negative for bruits ) Pulmonary Exam: LCTA, bilat EENT Exam: trachea midline Dental Exam: Appears intact Skin Exam: Skin is warm and dry. Turgor is normal. Abdominal exam: Abdomen is soft. Bowel sounds are present. Current state: Patient's current state is cooperative and interactive. Vitals: 09/28/21 1055 09/28/21 1100 BP: 141/81 133/75 Pulse: 76 SpO2: 99% Relevant diagnostics: ECG(s): N/A Echocardiogram(s): N/A Stress [...] for requested labs within last 720 hours. OPERATIONS DIRECTOR OPERATIONS DIRECTOR OPERATIONS DIRECTOR documented in this encounter Consult Notes * Lu Maria, PT - 10/17/2021 5:40 PM CST [facility] Physical Therapy Initial Evaluation Patient Name: Hira Evans Date of Service: 10/17/2021 Date of : 1950 Age: 71 y.o. male Room: [address] Admit Date: 10/17/2021 Attending Provider: Fransisco Heard MD Primary Diagnosis: Primary osteoarthritis of left knee Subjective HPI: Hira Evans is a 71 y.o. male POD 0 s/p left total knee arthroplasty with Dr. Heard. Patient is agreeable to physical therapy evaluation. Past Medical History: Diagnosis Date ??? Arthritis OA ??? GERD (gastroesophageal reflux disease) ??? History of melanoma ??? Hypertension ??? Personal history of prostate cancer ??? Seasonal allergies Past Surgical History: Procedure Laterality Date ??? JOINT REPLACEMENT Right 2013 right knee replacement ??? MELANOMA RESECTION Right 2005 right flank ??? PROSTATECTOMY 2009 ??? REVISION TOTAL KNEE ARTHROPLASTY Right 09/30/2019 Precautions: Fall Risk Weightbearing Status: Weightbearing as tolerated (WBAT) on left Lower Extremity Physical Therapy Goal: Pat would like to return to prior level of function Patient Comment: Pat motivated to ambulate Prior Living Environment and Level of Function: Type of Home: 1 level home Lives With: Stairs to Enter: 2 Railings: 1 Stairs Inside: 0 Railings: 0 Comments: Home Equipment: wheeled walker and single point cane Comments: Prior Level of Function: Independent with ADLs, Independent with transfers and Independent with ambulation Comments: Driving: Yes Occupation: Works Falls Within the Last 6 Months: No Objective Vitals: Comments: Pt vitals appropriate prior to therapy visit and remained stable during therapy session. Activity Tolerance: Endurance: Tolerates 30 minutes of activity with multiple rests. Pain Assessment: Pre-evaluation pain: Post-evaluation pain: Location: Left leg Pain intervention: Patient received pain medication prior to physical therapy treatment, Cold applied, Repositioned, Physical therapy and RN notified Cognition: Overall Cognitive Status: At Baseline Arousal: Alert Orientation: Oriented x4 (person, place, time, and situation) Following Commands: Follows all commands and directions without difficulty Behavior: Easy to engage Lower Extremity Assessment: left knee ROM: 0o-82o Active supine Bed Mobility: Patient performs supine to edge of bed with distant supervision for safety. Transfers: Patient performs sit to and from stand with wheeled walker and distant supervision for safety. Gait: Patient ambulates x 40 feet with wheeled walker and distant supervision for safety Stairs: Patient not appropriate to assess at this time. Gait belt was used for all out of bed mobility. Therapeutic Exercise: Ankle Pumps 1x10 Quad Sets 1x10 Straight Leg Raise 1x10 Short-Arc Quads 1x10 Heel Slides 1x10 Long-Arc Quads 1x10 Comments: Per [facility] TKA protocol. Formal Balance Assessment: Formal balance assessment not indicated due to recent surgery. Assessment Physical Therapy Diagnosis: Impaired joint mobility, motor function, muscle performance, and range of motion associated with joint arthroplasty Prognosis: Good Response to today???s treatment: Good Patient seen within 2 hours of arriving to floor: Yes Completed patient handoff and notified RN of patient???s location and functional status upon completion of session. RN okayed physical therapy and patient agreeable. In PM, pt found supine and required distant supervision for bed mobility. Patient performed sit <> stand with distant supervision. Patient ambulated 40 feet with wheeled walker and distant supervision. Patient was left sitting at end of therapy session. RN notified. Patient's clinical presentation is stable and the patient's clinical course is expected to progressin a typical manner. Patient demonstrates deficiencies in the following areas: gait deviations, decreased strength, decreased range of motion, decreased endurance, impaired balance, decreased mobility and decreased coordination. Patient would benefit from physical therapy intervention to address these impairments and functional limitations. Education: Patient and family has been educated on the role of physical therapy, safety, precautions, mobility training, stairs and home exercise program. Education completed via explanation, teach back, demonstration and handout . Patient and family verbalized understanding, demonstrated understanding and needs ongoing reinforcement. Handouts Issued: myMobility TKA HEP Barriers to discharge: Current mobility status Care Plan Goals established: 10/17/21 1. The patient will perform bed mobility including supine to/from sit with modified independence inorder to safely return home by 10/19/2021. Comments: Initiated 2. The patient will perform sit to/from stand transfers using wheeled walker and modified independence in order to safely return home by 10/19/2021. Comments: Initiated 3. The patient will ambulate 150 feet using wheeled walker and modified independence in order to safely return home by 10/19/2021. Comments: Initiated 4. The patient will ascend/descend 2 stairs with 1 handrail and close supervision in order to safely return home by 10/19/2021. Comments: Initiated 5. The patient will perform HEP appropriately per protocol with assistance from joint assistant men's soccer coach as needed in order to safely return home by 10/19/2021. Comments: Initiated Plan Physical therapy frequency: Daily Physical therapy interventions: bed mobility, gait training, stair training, therapeutic activity, therapeutic exercise, equipment evaluation and education, endurance training, balance training and functional transfer training Recommended equipment to safely discharge: wheeled walker - patient already owns Recommended method of transportation at discharge: Personal vehicle with family Referrals Recommended: None Patient okay to discharge: No Discharge Recommendation: Home with family,Home Health PT Lu Maria, PT OPERATIONS DIRECTOR documented in this encounter Miscellaneous Notes * Plan of Care - Latha Harris RN - 10/18/2021 9:53 AM CST Goals: Clinical Goals for the Shift: Pain managed under a 4, VSS, IS use Ankle pumps, rest Summary: Problem: Health Behavior: Goal: Understanding of discharge needs will improve Outcome: Progressing Problem: Lack of Knowledge: Goal: Ability to state ways to decrease the risk of falls will improve Outcome: Progressing Problem: Safety: Goal: Will remain free from falls Outcome: Progressing Goal: Will remain free from injury from falls Outcome: Progressing Problem: Activity: Goal: Ability to avoid complications of mobility impairment will improve Outcome: Progressing Goal: Range of joint motion will improve Outcome: Progressing Goal: Ability to tolerate increased activity will improve Outcome: Progressing Goal: Will remain free from falls Outcome: Progressing Problem: Lack of Knowledge: Goal: Verbalization of understanding the information provided will improve Outcome: Progressing Problem: Physical Regulation: Goal: Ability to maintain clinical measurements within normal limits will improve Outcome: Progressing Goal: Postoperative complications will be avoided or minimized Outcome: Progressing Goal: Diagnostic test results will improve Outcome: Progressing Problem: Self-Care: Goal: Ability to meet self-care needs will improve Outcome: Progressing Problem: Sensory: Goal: Pain level will decrease Outcome: Progressing Problem: Skin Integrity: Goal: Will remain free from infection Outcome: Progressing Goal: Risk for impaired skin integrity will decrease Outcome: Progressing OPERATIONS DIRECTOR * Plan of Care - Melissa Roth RN - 10/18/2021 9:53 AM CST UNABLE TO SECURE HOME CARE FOR PT & ORDERS PLACED FOR VIRTUAL PT SERVICES WITH [facility]. PT HAS THECONSENT FORMS & I CALLED & INFORMED HIM. OPERATIONS DIRECTOR * Plan of Care - Melissa Roth RN - 10/18/2021 9:16 AM CST CM has not secured home care yet. I gave pt the Virtual PT paper work if I can not secure home carehe has agreed to virtual services thru [facility]. I will call pt to f/u. OPERATIONS DIRECTOR * Plan of Care - Ky Pickens RN - 10/18/2021 4:47 AM CST Goals: Clinical Goals for the Shift: Pain managed under a 4, VSS, IS use Ankle pumps, rest Problem: Health Behavior: Goal: Understanding of discharge needs will improve Outcome: Progressing Problem: Lack of Knowledge: Goal: Ability to state ways to decrease the risk of falls will improve Outcome: Progressing Problem: Safety: Goal: Will remain free from falls Outcome: Progressing Goal: Will remain free from injury from falls Outcome: Progressing Problem: Activity: Goal: Ability to avoid complications of mobility impairment will improve Outcome: Progressing Goal: Range of joint motion will improve Outcome: Progressing Goal: Ability to tolerate increased activity will improve Outcome: Progressing Goal: Will remain free from falls Outcome: Progressing Problem: Lack of Knowledge: Goal: Verbalization of understanding the information provided will improve Outcome: Progressing Problem: Physical Regulation: Goal: Ability to maintain clinical measurements within normal limits will improve Outcome: Progressing Goal: Postoperative complications will be avoided or minimized Outcome: Progressing Goal: Diagnostic test results will improve Outcome: Progressing Problem: Self-Care: Goal: Ability to meet self-care needs will improve Outcome: Progressing Problem: Sensory: Goal: Pain level will decrease Outcome: Progressing Problem: Skin Integrity: Goal: Will remain free from infection Outcome: Progressing Goal: Risk for impaired skin integrity will decrease Outcome: Progressing OPERATIONS DIRECTOR * Plan of Care - Carey Marroquin RN - 10/17/2021 6:40 PM CST Problem: Health Behavior: Goal: Understanding of discharge needs will improve Outcome: Progressing Problem: Lack of Knowledge: Goal: Ability to state ways to decrease the risk of falls will improve Outcome: Progressing Problem: Safety: Goal: Will remain free from falls Outcome: Progressing Goal: Will remain free from injury from falls Outcome: Progressing Problem: Activity: Goal: Ability to avoid complications of mobility impairment will improve Outcome: Progressing Goal: Range of joint motion will improve Outcome: Progressing Goal: Ability to tolerate increased activity will improve Outcome: Progressing Goal: Will remain free from falls Outcome: Progressing Problem: Lack of Knowledge: Goal: Verbalization of understanding the information provided will improve Outcome: Progressing Problem: Physical Regulation: Goal: Ability to maintain clinical measurements within normal limits will improve Outcome: Progressing Goal: Postoperative complications will be avoided or minimized Outcome: Progressing Goal: Diagnostic test results will improve Outcome: Progressing Problem: Self-Care: Goal: Ability to meet self-care needs will improve Outcome: Progressing Problem: Sensory: Goal: Pain level will decrease Outcome: Progressing Problem: Skin Integrity: Goal: Will remain free from infection Outcome: Progressing Goal: Risk for impaired skin integrity will decrease Outcome: Progressing Goals: Clinical Goals for the Shift: Pain <4, IS and ankle pumps 10/x hr while awake, PT/OT, tolerate diet w/o N/V, maintain safety/comfort Summary: Minimal c/o pain. Demonstrates IS and ankle pumps, encouraged. Harris removed and voided. Up to chair with therapy. Dinner ordered, no c/o N/V. OPERATIONS DIRECTOR * Perioperative Nursing Note - Cyndi Wyatt RN - 10/17/2021 4:23 PM CST VSS; MD [place] at bedside for signout; pt denies nausea; pain 5/10 with PRN pain medication; xraycomplete; bolus administered as ordered; ready to TTF; will continue to monitor; OPERATIONS DIRECTOR * Op Note - Fransisco Heard MD - 10/17/2021 2:04 PM CST OPERATIVE REPORT ATTENDING SURGEON: Fransisco Heard M.D. FIRST STOVE POLISHER: Laz Nolasco M.D. PREOPERATIVE DIAGNOSIS: Left knee osteoarthritis POSTOPERATIVE DIAGNOSIS: Left knee osteoarthritis PROCEDURE: Left cementless total knee arthroplasty - GALE (MAKOplasty) robotic assisted IMPLANTS: Choir Director: [place] Brand: Triathlon Tibial component size: 6 Femoral component size: 5 Patellar Button: none Bearing type: CS Tibial Insert Size: 6 Insert Thickness: 10mm SURGICAL DETAILS: 1) Incision/arthrotomy type: Standard mid vastus 2) Estimated blood loss: 200 3) Urine output: see anesthesia record 4) Crystalloid replacement: 2500 5) Colloid replacement: 0 6) Blood replacement: 0 7) Anesthesia type: spinal 8) Specimens removed: none 9) Capsular injection: 30 mL of 0.5% Marcaine with epinephrine and 30 mg of Toradol 10) Tourniquet Use: None 11) Tourniquet Time in Minutes: 0 INDICATIONS FOR PROCEDURE: This patient presents today with end stage degenerative joint disease of the knee. The patient has failed non-operative treatment and presents for total knee replacement. Risks, complications, and benefits of the procedure have been discussed and all questions have been answered preoperatively. PROCEDURE: The patient was brought to the operating room and placed on the operating room table in the supine position. After anesthesia was established, the patient was positioned supine and a tourniquet placed on the proximal thigh. Bony prominences were padded. The patient was given prophylactic antibiotics within one hour of skin incision. The involved lower extremity was prepped and draped in usual sterile fashion. At this time the robotic arm, the base tracker for it, as well as the probe were registered under optical registration techniques. Surgical timeout was taken to confirm the operative side and planned procedure. A straight incision was used medial to the midline carried through the subcutaneous tissue to the underlying extensor mechanism. A standard mid vastus approach was utilized. A medial release of soft tissue from the proximal tibia was then performed and the anterior fat pad was resected to enhance vi sualization of the joint. At this point in time we placed a tibial pin, unicortical, partially threaded, at the distal aspect of the incision, at the distal end of the tubercle . Using a guided cannula, a second pin was now placed unicortically. The optical arrays were now positioned and tightened to these. The knee was now flexed 90 degrees. 1 cm proximal and anterior to the medial epicondyle, the femoral unicortical pin was drilled and using a cannulated guide, the second one was drilled. These were tested for stability and then the femoral array trackers were positioned and tightened. At this point in time, the optical tracker identified that the base tracker as well as the leg through all ranges of motion were in good proximity and being read in a central position. At this time the knee mechanical axis was now registered using both medial and lateral malleoli, the medial and lateralepicondyles and the center aspect of the knee at the base of the anterior cruciate ligament and thehip center was now registered. Once these were confirmed to be within accepatable ranges, the femur and tibia were now approached with a sharp and blunt probe in order to register multiple points to interface this with preoperative computerized axial tomography scan diagrams. After this had been done, these were now verified. Next a marker on the femur was identified in order to allow us to continue to check registration and one was placed on the tibia. The leg was now take through various poses and these positions were captured on the graphic user interface. Extension and flexion gaps were measured. The computer was now used to adjust the implant to obtain the desired axis, gap distances and implant articulation. Once this had been accomplished, the robotic arm with the saw attached was brought in and, after valid robotic and leg registration, the tibia was now prepared. During the case we would check the planned position. We would do sequential checks at the depth. After the tibia cut was performed, the robot and leg were validated, and the femur was resected utilizing anterior and posterior cuts, anterior and posterior champfer cuts, and a distal cut. Bone cuts were then removed. The medial and lateral menisci were removed. Marginal osteophytes were removed and a lamina jack spinner was utilized with the knee in 90 of flexion to clear posterior osteophytes, loose bodies and any remaining meniscal remna nts. The tibial trial baseplate was put in place. Trial reduction was performed and the optimal trial insert was chosen. The knee was tested for full extension, stability to stress in extension, mid flexion, and 90 of flexion, as well as for patellar tracking. This was confirmed with the graphic user interface. Tibial rotation was confirmed on the interface. The keel was then punched. The trial implants were removed. The tracking arrays and the fixation pins were removed from the femur and tibia. Femoral and tibial checkpoints were removed. All bone was then prepared with lavage and drying for preparation prior to final component placement. The final implants were impacted. The knee was reduced and motion and stability was again tested. After press fit of implants was confirmed, the tibial insert was exchanged to the final tibial insert which was impacted into position. The patella was everted, a lateral facetectomy was performed, marginal osteophytes trimmed, and thesynovial margin was cauterized, clearing excess synovium. A lateral release was not needed to enhance tracking of the patella. The wound was closed in layers and the skin was approximated with subcutaneous Monocryl and Prineo dressing. The patient tolerated the procedure well and was taken to the recovery room in stable condition. EXCEPTIONS/COMPLICATIONS: None SPONGE, INSTRUMENT AND NEEDLE COUNTS: Correct x 2. See Dr. Heard's attending addendum for further details. ATTENDING SURGEON ADDENDUM: I was present for all critical portions of the case including assessment of bone cuts, insertion ofall trials and implants, and assessment of alignment stability, range of motion, and patellar tracking. Dr. Laz Nolasco was for the noncritical portions present of the procedure. Please also notethat was necessary for the procedure as cutting table operator first, because robotic total knee replacement is a difficult procedure, requiring at least two skilled and experienced surgeons. One surgeon was necessary to help maintain exposure and assist with the use of specific robotic total knee replacement instrumentation, while the primary surgeon performed the procedure and no qualified resident was available. OPERATIONS DIRECTOR OPERATIONS DIRECTOR OPERATIONS DIRECTOR * Brief Op Note - Laz Nolasco MD - 10/17/2021 2:04 PM CST Operative Progress Note Surgical Team: Surgeon(s) and Role: * Fransisco Heard MD - Primary * Laz Nolasco MD - Fellow Anesthesiologist: Edmond Hickey MD; Darrian Gonzales MD DESIGN CENTER CONSULTANT: Luana Hartmnan CRNA; Dana Peoples CRNA Process Control Specialist: Dania Barnes RN Scrub: Melvina Potter RN; Cally Nguyen RN HOSTAGE NEGOTIATOR: Keysha Baeza RNFA; Em Biswas RN DATE OF SURGERY : 10/17/2021 Preoperative Diagnosis: Pre-op Diagnosis * Primary osteoarthritis of left knee [M17.12] Postoperative Diagnosis: Post-op Diagnosis * Primary osteoarthritis of left knee [M17.12] Procedure(s): Procedure(s) (LRB): ARTHROPLASTY LEFT TOTAL KNEE - GALE ROBOTIC ARM (Left) Operative Findings: See op report Estimated Blood Loss: 200 mL Intraoperative Fluids: 2500 mls Specimens: No specimen collected in procedure Implants: Implant Name Type Inv. Item Serial No. Choir Director Lot No. LRB No. Used Action [employer] 5517-F-501 TRIATHLON CRUCIATE RETAIN BEAD KNEE LEFT 5 COMPONENT FEMORAL PA - SN/A - [id number] Other - see comments [employer] 5517-F-501 Triathlon Cruciate Retain BeadKnee Left 5 Component Femoral Pa N/A [employer] [id number] Left 1 Implanted [employer] 5536-B-600 TRIATHLON KNEE 6 BASEPLATE TIBIAL TRITANIUM - SN/A - [id number] Other - see comments [employer] 5536-B-600 Triathlon Knee 6 Baseplate Tibial Tritanium N/A [employer] [id number] Left 1 Implanted [employer] [id number] INSERT TIBIAL TRIATHLON 6 H10MM KNEE BEARING CONDYLAR STABILIZE STERILE - SN/A - [id number] Other - see comments [employer] [id number] Insert Tibial Triathlon 6 H10mm Knee Bearing Condylar Stabilize Sterile N/A [employer] [id number] Left 1 Implanted Blood/Blood Products Transfused: 0 mls Complications: None Condition on Discharge from the operating room was stable Laz Nolasco MD Date: 10/17/2021 Time: 3:52 PM No Resident involved on case Cosigned by Fransisco Heard MD at 10/17/2021 10:45 PM SLOT OPERATIONS DIRECTOR OPERATIONS DIRECTOR OPERATIONS DIRECTOR documented in this encounter Plan of Treatment Not on file documented as of this encounter Procedures Procedure Name Priority Date/Time Associated Diagnosis Comments EGFR Routine 10/18/2021 4:03 AM SLOT OPERATIONS DIRECTOR CBC WITHOUT DIFFERENTIAL Routine 10/18/2021 4:03 AM SLOT OPERATIONS DIRECTOR BASIC METABOLIC PANEL Routine 10/18/2021 4:03 AM SLOT OPERATIONS DIRECTOR XR KNEE LEFT 1 OR 2 VIEWS ED Urgent/IP Urgent 10/17/2021 4:12 PM SLOT OPERATIONS DIRECTOR ARTHROPLASTY TOTAL KNEE ? GALE ROBOTIC ARM 10/17/2021 1:38 PM SLOT OPERATIONS DIRECTOR Primary osteoarthritis of left knee Special Needs [place] documented in this encounter Results * eGFR (10/18/2021 4:03 AM SLOT OPERATIONS DIRECTOR) eGFR 99 mL/min/1. 73 m2 [facility] Comment: Interpretive Data Reference Interval Normal ?>/= [...] interpretive data was last reviewed 2021. Blood 10/18/2021 4:03 AM SLOT OPERATIONS DIRECTOR 10/18/2021 4:09 AM SLOT OPERATIONS DIRECTOR us Fransisco Heard MD LAB BLOOD ORDERABLES Final Result [facility] [address] [facility]. Department of [address] [place] [address] * (ABNORMAL) CBC without differential (10/18/2021 4:03 AM SLOT OPERATIONS DIRECTOR) Pathologist [facility] WBC 9.0 3.8 - 9.9 K/cumm [facility] Hgb 13.3 13.0 - 17.5 g/dL [facility] Hct 37.9(L) 38.9 - 50.3 % [facility] Plt 138(L) 150 - 400 K/cumm [facility] MPV 11.1 9.1 - 12.3 fL [facility] RBC 4.12(L) 4.30 - 5.80 M/cumm [facility] MCV 92.0 81.3 - 96.4 fL [facility] MCH 32.3 27.1 - 33.3 pg [facility] MCHC 35.1 32.3 - 35.7 g/dL [facility] RDW CV 11.7 11.1 - 14.9 % [facility] RDW SD 39.7 35.7 - 48.1 fL [facility] NRBC abs 0.00 0.00 - 0.01 K/cumm [facility] Blood 10/18/2021 4:03 AM SLOT OPERATIONS DIRECTOR 10/18/2021 4:09 AM SLOT OPERATIONS DIRECTOR Fransisco Heard MD LAB BLOOD ORDERABLES Final Result [facility] [address] [facility] Department of Laboratories [place], [place] [id number] * (ABNORMAL) Basic metabolic panel (10/18/2021 4:03 AM SLOT OPERATIONS DIRECTOR) Pathologist [facility] Sodium 135 135 - 145 mmol/L [facility] Potassium, pl 4.2 3.3 - 4.9 mmol/L [facility] Chloride 100 97 - 110 mmol/L [facility] CO2 26 22 - 32 mmol/L [facility] Anion gap 9 2 - 15 mmol/L [facility] BUN 14 8 - 25 mg/dL [facility] Creatinine 0.70(L) 0.80 - 1.30 mg/dL [facility] Glucose 209(H) 70 - 199 mg/dL [facility] Comment: Interpretive Data Fasting glucose >/= [...] classification and Diagnosis of Diabetes Diabetes Care 2017;40 (Suppl. 1):S11. Current interpretive data was last revised 2017. Calcium 8.8 8.5 - 10.3 mg/dL [facility] Blood 10/18/2021 4:03 AM SLOT OPERATIONS DIRECTOR 10/18/2021 4:09 AM SLOT OPERATIONS DIRECTOR us Fransisco Heard MD LAB BLOOD ORDERABLES Final Result Performing Organization Address City/State/[facility] Co ri Phone Number [facility] [id number] [facility] Department of Number [address] [place] [address] * XR Knee Left 1 or 2 View (10/17/2021 4:12 PM SLOT OPERATIONS DIRECTOR) Anatomical Region Laterality Modality Lower Extremities, Knee Left Computed Radiography 10/17/2021 4:16 PM SLOT OPERATIONS DIRECTOR Impressions 10/17/2021 4:16 PM SLOT OPERATIONS DIRECTOR 1. New two component left knee arthroplasty for osteoarthritis. Electronically signed by: Hood Kaur M.D. Narrative 10/17/2021 4:16 PM SLOT OPERATIONS DIRECTOR EXAMINATION: XR KNEE LEFT 1 OR 2 VIEWS HISTORY: Left knee osteoarthritis FINDINGS: 2 view examination of the left knee is compared with a study from 08/09/2021. There is a new two component left knee arthroplasty in near-anatomic position, with postoperative soft tissue gas and swelling. There is no fracture. Procedure Note Hood Kaur MD - 10/17/2021 EXAMINATION: XR KNEE LEFT 1 OR 2 VIEWS HISTORY: Left knee osteoarthritis FINDINGS: 2 view examination of the left knee is compared with a study from 08/09/2021. There is a new two component left knee arthroplasty in near-anatomic position, with postoperative soft tissue gas and swelling. There is no fracture. IMPRESSION: 1. New two component left knee arthroplasty for osteoarthritis. Electronically signed by: Hood Kaur M.D. Fransisco Heard MD IMG XR PROCEDURES Final Res ult documented in this encounter Visit Diagnoses Diagnosis Primary osteoarthritis of left knee- Primary Primary osteoarthritis of left knee HTN (hypertension) Unspecified essential hypertension Risk factors for obstructive sleep apnea Primary osteoarthritis of left knee documented in this encounter Admitting Diagnoses Diagnosis Primary osteoarthritis of left knee documented in this encounter Administered Medications Inactive Administered Medications - up to 3 most recent administrations Medication Order MAR Action Action Date Dose Rate Site acetaminophen (TYLENOL) tablet 1,000 mg 1,000 mg, oral, Every 6 hours scheduled, First dose on Sun10/17/21 at 1800, Indications: PainIndications:Pain Given 10/17/2021 11:33 PM SLOT OPERATIONS DIRECTOR 1,000 mg Given 10/17/2021 6:49 PM SLOT OPERATIONS DIRECTOR 1,000 mg acetaminophen (TYLENOL) tablet 650 mg 650 mg, oral, Once, On Sun10/17/21 at 1130, For 1 dose, Pre-Op, Indications: PainIndications:Pain Given 10/17/2021 11:26 AM SLOT OPERATIONS DIRECTOR 650 mg acyclovir (ZOVIRAX) capsule 400 mg 400 mg, oral, 2 times daily, First dose on Sun10/17/21 at 2100, Indications: Chronic SuppressionIndications:Chronic Suppression Given 10/18/2021 8:55 AM SLOT OPERATIONS DIRECTOR 4 00 mg Given 10/17/2021 8:06 PM SLOT OPERATIONS DIRECTOR 400 mg aspirin chewable tablet 81 mg 81 mg, oral, 2 times daily, First dose on Sun10/17/21 at 2100, Start first dose POD#0 at 2100, Indications: Deep Vein Thrombosis PreventionIndications:Deep Vein Thrombosis Prevention Given 10/18/2021 8:55 AM SLOT OPERATIONS DIRECTOR 81 mg Given 10/17/2021 8:06 PM SLOT OPERATIONS DIRECTOR 81 mg bupivacaine 0.5%-EPINEPHrine 1:200,000 PF 60 mL and ketorolac 15 mg solution As needed, Starting on Sun10/17/21 at 1522, Intra-Op Given 10/17/2021 3:22 PM SLOT OPERATIONS DIRECTOR 60.5 mL Surgical Site ceFAZolin (ANCEF) 2,000 mg/20 mL in sterile water (premix) 2,000 mg 2,000 mg, intravenous, at 400 mL/hr, Administer over 3 Minutes, Every 8 hours, First dose on Sun10/17/21 at 2200, For 2 doses, Beginning 8 hours after last ruben-operative dose., Indications: Prophylaxis, SurgicalIndications:Prophyl axis, Surgical Given 10/18/2021 6:09 AM SLOT OPERATIONS DIRECTOR 2,000 mg 400 mL/hr Given 10/17/2021 11:33 PM SLOT OPERATIONS DIRECTOR 2,000 mg 400 mL/hr ceFAZolin (ANCEF) 3,000 mg in sodium chloride 0.9% 3,000 mL irrigation solution 3,000 mg, irrigation, Once, On Sun10/17/21 at 1400, For 1 dose, Intra-Op, Have ready for intra-op administration. Given 10/17/2021 2:15 PM SLOT OPERATIONS DIRECTOR 3,000 mg Surgical Site celecoxib (CeleBREX) capsule 100 mg 100 mg, oral, 2 times daily, First dose on Sun10/18/21 at 0900, Please schedule to start morning POD#1, Indications: PainIndications:Pain Given 10/18/2021 8:55 AM SLOT OPERATIONS DIRECTOR 100 mg cholecalciferol (VITAMIN D-3) capsule 10,000 Units 10,000 Units, oral, Every morning, First dose on Sun10/18/21 at 0900, Indications: Vitamin D DeficiencyIndications:Vitamin D Deficiency Given 10/18/2021 8:57 AM SLOT OPERATIONS DIRECTOR 10,000 Units dilTIAZem XR (CARDIZEM CD,DILACOR XR) 24 hour capsule 240 mg 240 mg, oral, 2 times daily, First dose on Sun10/17/21 at 2100, Do not crush, chew, cut, dissolve, open or otherwise manipulate tablet/capsule., Indications: hypertensionIndications:hypert ension Given 10/18/2021 8:55 AM SLOT OPERATIONS DIRECTOR 240 mg Given 10/17/2021 8:06 PM SLOT OPERATIONS DIRECTOR 240 mg famotidine (PEPCID) tablet 20 mg 20 mg, oral, 2 times daily, First dose on Sun10/17/21 at 2100, Indications: HeartburnIndications:Heartburn Given 10/18/2021 8:55 AM SLOT OPERATIONS DIRECTOR 20 mg Given 10/17/2021 8:06 PM SLOT OPERATIONS DIRECTOR 20 mg HYDROmorphone (DILAUDID) injection 0.2 mg 0.2 mg, intravenous, Administer over 2 Minutes, Every 5 min PRN, 1st line for pain, Use as 1st line pain med for inpatients or for patients with extremely severe pain., Starting on Sun10/17/21 at 1551, Phase I, Use as first line pain medication for inpatients. May use as first line medication for outpatients with extremely severe pain, history of opioid tolerance, or history of Chronic Pain with opioid tolerance, after consulting with Anesthesiologist. Inform anesthesiologist when dose reaches 2 mg for inpatients or 1 mg for outpatients., Indications: Chronic Pain with Opioid Tolerance, Pain, Severe Pain with Opioid ToleranceIndications:Chronic Pain with Opioid Tolerance,Pain,Severe Pain with Opioid Tolerance Given 10/17/2021 5:05 PM SLOT OPERATIONS DIRECTOR 0.2 mg Given 10/17/2021 4:33 PM SLOT OPERATIONS DIRECTOR 0.2 mg Given 10/17/2021 4:25 PM SLOT OPERATIONS DIRECTOR 0.2 mg irbesartan (AVAPRO) tablet 300 mg 300 mg, oral, Every morning, First dose on Sun10/18/21 at 0900, Indications: hypertensionIndications:hypertension Given 10/18/2021 8:57 AM SLOT OPERATIONS DIRECTOR 300 mg ketorolac (TORADOL) 15 mg/mL injection 15 mg 15 mg, intravenous, Every 6 hours, First dose on Sun10/17/21 at 2100, For 2 doses, For Adult IV push, administer over 15 seconds, Indications: PainIndications:Pain Given 10/18/2021 3:53 AM SLOT OPERATIONS DIRECTOR 15 mg Given 10/17/2021 8:06 PM SLOT OPERATIONS DIRECTOR 15 mg Lactated Ringer's (LR) bolus 1,000 mL 1,000 mL, intravenous, Once, On Sun10/17/21 at 1130, For 1 dose, Pre-Op New Bag 10/17/2021 11:25 AM SLOT OPERATIONS DIRECTOR 1,000 mL Lactated Ringer's (LR) bolus 1,000 mL 1,000 mL, intravenous, at 1,000 mL/hr, Administer over 1 Hours, Once, On Sun10/17/21 at 1630, For 1 dose, TO BE GIVEN IN PACU New Bag 10/17/2021 4:16 PM SLOT OPERATIONS DIRECTOR 1,000 mL 1000 mL/hr Lactated Ringer's (LR) infusion 30 mL/hr, intravenous, Continuous, Starting on Sun10/17/21 at 1130, For 4 hours, Pre-Op, Use a 500 ml bag for End Stage Renal Disease Patients. Discontinue if fluid still running once patient arrives to floor. New Bag 10/17/2021 3:40 PM SLOT OPERATIONS DIRECTOR 30 mL/hr New Bag 10/17/2021 2:10 PM SLOT OPERATIONS DIRECTOR 30 mL/hr Rate/Dose Verify 10/17/2021 1:36 PM SLOT OPERATIONS DIRECTOR 30 mL/h r loratadine (CLARITIN) tablet 10 mg 10 mg, oral, Every morning, First dose on Sun10/18/21 at 0900, Indications: Allergic RhinitisIndications:Allergic Rhinitis Given 10/18/2021 8:57 AM SLOT OPERATIONS DIRECTOR 10 mg mirabegron ER (MYRBETRIQ) extended release tablet 25 mg 25 mg, oral, Every morning, First dose on Sun10/18/21 at 0900, Do not crush, chew, cut, dissolve, open or otherwise manipulate tablet/capsule., Indications: Bladder HyperactivityIndications:Bladder Hyperactivity Given 10/18/2021 8:55 AM SLOT OPERATIONS DIRECTOR 25 mg ondansetron (ZOFRAN) injection 4 mg 4 mg, intravenous, Administer over 2 Minutes, Every 6 hours PRN, nausea, vomiting, if not tolerating PO, Starting on Sun10/17/21 at 1742, Indications: nausea and vomitingIndications:nausea and vomiting ondansetron ODT (ZOFRAN-ODT) disintegrating tablet 4 mg 4 mg, oral, Every 6 hours PRN, nausea, vomiting, Starting on Sun10/17/21 at 1742, Indications: nausea and vomitingIndications:nausea and vomiting oxyCODONE-acetaminophen (PERCOCET) 5-325 mg per tablet 1 tablet 1 tablet, oral, Every 4 hours PRN, 1st line for pain, Starting on Sun10/17/21 at 1742, May repeat in 1 hour if pain is uncontrolled or increasing. Max 2 doses within 1 dosing interval., Indications: PainIndications:Pain Given 10/18/2021 6:09 AM SLOT OPERATIONS DIRECTOR 1 tablet polyvinyl alcohol-povidone (REFRESH CLASSIC) 1.4-0.6 % ophthalmic solution 1 drop 1 drop, each eye, Daily, First dose on Sun10/18/21 at 0900 Given 10/18/2021 8:57 AM SLOT OPERATIONS DIRECTOR 1 drop povidone-iodine (BETADINE) 22.5 mL in sodium chloride 0.9% 250 mL irrigation As needed, Starting on Sun10/17/21 at 1523, Intra-Op Given 10/17/2021 3:23 PM SLOT OPERATIONS DIRECTOR 272.5 mL Surgical Site senna-docusate (PERICOLACE) 8.6-50 mg per tablet 2 tablet 2 tablet, oral, 2 times daily, First dose on Sun10/17/21 at 2100, Hold for diarrhea., Indications: constipationIndications:constipa tion Given 10/18/2021 8:54 AM SLOT OPERATIONS DIRECTOR 2 tablets Given 10/17/2021 8:06 PM SLOT OPERATIONS DIRECTOR 2 tablets sodium chloride 0.9% flush 0.5-20 mL 0.5-20 mL, intra-catheter, Every 8 hours scheduled, First dose on Sun10/17/21 at 2200, Flush volume based on line type and size. Given 10/18/2021 6:09 AM SLOT OPERATIONS DIRECTOR 5 mL Given 10/17/2021 11:33 PM SLOT OPERATIONS DIRECTOR 5 mL sodium chloride 0.9% infusion 100 mL/hr, intravenous, Continuous, Starting on Sun10/17/21 at 1815 New Bag 10/17/2021 6:31 PM SLOT OPERATIONS DIRECTOR 100 mL/hr 100 mL/hr documented in this encounter Discontinued Medications Medication Sig Discontinue Reason Start Date End Da te celecoxib (CeleBREX) 100 mg capsuleIndications:Os teoarthritis,Postoper ative Acute Pain TAKE 2 PILLS WITH BREAKFAST THE DAY BEFORE SX. TAKE 1 PILL BID FOR 4 DAYS AFTER DISCHARGE. Reorder 08/09/2021 10/18/2021 ciprofloxacin (CIPRO) 500 mg tabletIndications:Pro phylaxis, Surgical,Before Dental Take 500 mg by mouth Stop Taking at Discharge 08/27/2019 10/18/2021 acetaminophen (Tylenol Extra Strength) 500 mg tablet Take 500 mg by mouth every 6 hours as needed Stop Taking at Discharge 10/06/2019 10/18/2021 ubidecarenone (COENZYME Q10 ORAL) Take 500 mg by mouth every morning Stop Taking at Discharge 10/18/2021 turmeric root extract 500 mg capsule Take by mouth every morning With tiffanie Stop Taking at Discharge 10/18/2021 documented as of this encounter Historical Medications * This list may reflect changes made after this encounter. celecoxib (CeleBREX) 100 mg capsuleIndicatio ns:Osteoarthriti s,Postoperative Acute Pain Take 1 tablet twice daily after surgery until prescription is finished. You should already have this prescription at home. 10 capsule 10/18/2021 2 added in this encounter Active and Recently Administered Medications Times are shown in SLOT OPERATIONS DIRECTOR. Scheduled Medication Order 10/16/2021 10/17/2021 10/18/2021 acetaminophen (TYLENOL) tablet 1,000 mg (CANCELED) 1,000 mg, oral, Every 6 hours scheduled, First dose on Sun10/17/21 at 1800, Indications: Pain 1849 (Given - Provider: Carey Marroquin, RN)2333 (Given - Provider: Ky Pickens, NARENDRA) 0609 (Not Given - Provider: Ky Pickens RN - Reason: Other - Comment: Patient receiving percocet. Do not want to double up on tylenol) acetaminophen (TYLENOL) tablet 650 mg (COMPLETED) 650 mg, oral, Once, On Sun10/17/21 at 1130, For 1 dose, Pre-Op, Indications: Pain 1126 (Given - Provider: Cindy Eagle, NARENDRA) acyclovir (ZOVIRAX) capsule 400 mg 400 mg, oral, 2 times daily, First dose on Sun10/17/21 at 2100, Indications: Chronic Suppression 2005 (Given - Provider: Ky Pickens RN) 0855 (Given - Provider: Latha Harris, NARENDRA) aspirin chewable tablet 81 mg 81 mg, oral, 2 times daily, First dose on Sun10/17/21 at 2100, Start first dose POD#0 at 2100, Indications: Deep Vein Thrombosis Prevention 2005 (Given - Provider: Ky Pickens RN) 0855 (Given - Provider: Latha Harris, NARENDRA) ceFAZolin (ANCEF) 1 gram/10 mL in sterile water (premix) 2,000 mg (COMPLETED) 2,000 mg, intravenous, at 400 mL/hr, Administer over 3 Minutes, Once, On Sun10/17/21 at 1130, For 1 dose, Pre-Op, Administer within 60 minutes of incision., Indications: Prophylaxis, Surgical 1346 (Given - Provider: Dana Peoples CRNA) ceFAZolin (ANCEF) 2,000 mg/20 mL in sterile water (premix) 2,000 mg (COMPLETED) 2,000 mg, intravenous, at 400 mL/hr, Administer over 3 Minutes, Every 8 hours, First dose on Sun10/17/21 at 2200, For 2 doses, Beginning 8 hours after last ruben-operative dose., Indications: Prophylaxis, Surgical 2333 (Given - Provider: Ky Pickens RN) 0609 (Given - Provider: Ky Pickens RN) ceFAZolin (ANCEF) 3,000 mg in sodium chloride 0.9% 3,000 mL irrigation solution (COMPLETED) 3,000 mg, irrigation, Once, On Sun10/17/21 at 1400, For 1 dose, Intra-Op, Have ready for intra-op administration. 1400 (Due)1415 (Given - Provider: Laz Nolasco MD) celecoxib (CeleBREX) capsule 100 mg 100 mg, oral, 2 times daily, First dose on Sun10/18/21 at 0900, Please schedule to start morning POD#1, Indications: Pain 0855 (Given - Provider: Latha Harris RN) cholecalciferol (VITAMIN D-3) capsule 10,000 Units 10,000 Units, oral, Every morning, First dose on Sun10/18/21 at 0900, Indications: Vitamin D Deficiency 0857 (Given - Provider: Latha Harris RN) dexAMETHasone (DECADRON) 4 mg/mL injection 8 mg (COMPLETED) 8 mg, intravenous, Administer over 2 Minutes, Once, On Sun10/17/21 at 1400, For 1 dose, Intra-Op, Intra-op administration., Indications: Pain Treatment Adjunct 1531 (Given - Provider: Luana Hartmann CRNA) dilTIAZem XR (CARDIZEM CD,DILACOR XR) 24 hour capsule 240 mg 240 mg, oral, 2 times daily, First dose on Sun10/17/21 at 2100, Do not crush, chew, cut, dissolve, open or otherwise manipulate tablet/capsule., Indications: hypertension 2005 (Given - Provider: Ky Pickens RN) 0855 (Given - Provider: Latha Harris RN) famotidine (PEPCID) tablet 20 mg 20 mg, oral, 2 times daily, First dose on Sun10/17/21 at 2100, Indications: Heartburn 2005 (Given - Provider: Ky Pickens RN) 0855 (Given - Provider: Latha Harris, NARENDRA) irbesartan (AVAPRO) tablet 300 mg 300 mg, oral, Every morning, First dose on Sun10/18/21 at 0900, Indications: hypertension 0857 (Given - Provider: Latha Harris, RN) ketorolac (TORADOL) 15 mg/mL injection 15 mg (COMPLETED) 15 mg, intravenous, Every 6 hours, First dose on Sun10/17/21 at 2100, For 2 doses, For Adult IV push, administer over 15 seconds, Indications: Pain 2005 (Given - Provider: Ky Pickens RN) 0353 (Given - Provider: Ky Pickens RN) ketorolac (TORADOL) 30 mg/mL (1 mL) injection 15 mg (COMPLETED) 15 mg, intravenous, Once, On Sun10/17/21 at 1400, For 1 dose, Intra-Op, INTRA-OP Give at time of skin closure, Indications: Postoperatvie Pain Management 1535 (Given - Provider: Luana Hartmann CRNA) Lactated Ringer's (LR) bolus 1,000 mL (COMPLETED) 1,000 mL, intravenous, Once, On Sun10/17/21 at 1130, For 1 dose, Pre-Op 1125 (New Bag - Provider: Cindy Eagle RN - Comment: warmed) Lactated Ringer's (LR) bolus 1,000 mL (COMPLETED) 1,000 mL, intravenous, at 1,000 mL/hr, Administer over 1 Hours, Once, On Sun10/17/21 at 1630, For 1 dose, TO BE GIVEN IN PACU 1616 (New Bag - Provider: Cyndi Wyatt, NARENDRA) loratadine (CLARITIN) tablet 10 mg 10 mg, oral, Every morning, First dose on Sun10/18/21 at 0900, Indications: Allergic Rhinitis 0857 (Given - Provider: Latha Harris, NARENDRA) mirabegron ER (MYRBETRIQ) extended release tablet 25 mg 25 mg, oral, Every morning, First dose on Sun10/18/21 at 0900, Do not crush, chew, cut, dissolve, open or otherwise manipulate tablet/capsule., Indications: Bladder Hyperactivity 0855 (Given - Provider: Latha Harris, NARENDRA) polyvinyl alcohol-povidone (REFRESH CLASSIC) 1.4-0.6 % ophthalmic solution 1 drop 1 drop, each eye, Daily, First dose on Sun10/18/21 at 0900 0857 (Given - Provider: Latha Harris, RN) scopolamine patch 72 hour 1 patch 1 patch, transdermal, Administer over 72 Hours, Every 72 hours, First dose on Sun10/17/21 at 1130, For 1 dose, Pre-Op, Apply to Dr. Figueroa's patients, as well as to beach-chair position shoulder surgery patients, and to patients with a history of PONV and/or Motion Sickness. Do NOT administer to patients with a history of BPH or Glaucoma. Consult Anesthesiologist with any questions. In case of Urinary Retention, remove patch immediately and clean patch site with Alcohol., Indications: Motion Sickness, Prevention of Motion Sickness, Prevention of Post-Operative Nausea and Vomiting 1130 (Due) senna-docusate (PERICOLACE) 8.6-50 mg per tablet 2 tablet 2 tablet, oral, 2 times daily, First dose on Sun10/17/21 at 2100, Hold for diarrhea., Indications: constipation 2005 (Given - Provider: Ky Pickens RN) 0854 (Given - Provider: Latha Harris, NARENDRA) sodium chloride 0.9% flush 0.5-20 mL 0.5-20 mL, intra-catheter, Every 8 hours scheduled, First dose on Sun10/17/21 at 2200, Flush volume based on line type and size. 2333 (Given - Provider: Ky Pickens RN) 0609 (Given - Provider: Ky Pickens RN) tranexamic acid (CYKLOKAPRON) 1,000 mg/100 mL (10 mg/mL) in sodium chloride (premix) 1,000 mg (COMPLETED)(Linked Group 1) 1,000 mg, intravenous, at 400 mL/hr, Administer over 15 Minutes, Once, On Sun10/17/21 at 1400, For 1 dose, Intra-Op, INTRA-OP Infuse over 10 minutes prior to skin incision, Indications: Reduction of Perioperative Blood Loss 1336 (Given - Provider: Dana Peoples CRNA) tranexamic acid (CYKLOKAPRON) 1,000 mg/100 mL (10 mg/mL) in sodium chloride (premix) 1,000 mg (COMPLETED)(Linked Group 1) 1,000 mg, intravenous, at 400 mL/hr, Administer over 15 Minutes, Once, On Sun10/17/21 at 1400, For 1 dose, Intra-Op, INTRA-OP Infuse over 10 minutes at the start of wound closure., Indications: Reduction of Perioperative Blood Loss 1530 (Given - Provider: Luana Hartmann CRNA) Continuous Medication Order 10/16/2021 10/17/2021 10/18/2021 Lactated Ringer's (LR) infusion () 30 mL/hr, intravenous, Continuous, Starting on Sun10/17/21 at 1130, For 4 hours, Pre-Op, Use a 500 ml bag for End Stage Renal Disease Patients. Discontinue if fluid still running once patient arrives to floor. 1153 (New Bag - Provider: Lashon Cunha RN - Comment: warmed)1336 (Rate/Dose Verify - Provider: Dana Peoples CRNA - Comment: started in preop)1410 (New Bag - Provider: Dana Peoples CRNA)1540 (New Bag - Provider: Luana Hartmann CRNA) sodium chloride 0.9% infusion 100 mL/hr, intravenous, Continuous, Starting on Sun10/17/21 at 1815 1831 (New Bag - Provider: Kim Esquivel RN)2019 (Stopped - Provider: Ky Pickens RN) PRN Medication Order 10/16/2021 10/17/2021 10/18/2021 bupivacaine 0.5%-EPINEPHrine 1:200,000 PF 60 mL and ketorolac 15 mg solution (CANCELED) As needed, Starting on Sun10/17/21 at 1522, Intra-Op 1522 (Given - Provider: Laz Nolasco MD - Comment: INFILTRATED) camphor-menthoL (SARNA) 0.5-0.5 % lotion topical, Every 2 hours PRN, other, itching, Starting on Sun10/17/21 at 1742, Apply to affected area: other, Indications: Urticaria famotidine (PEPCID) injection 20 mg (COMPLETED) 20 mg, intravenous, Administer over 2 Minutes, Once as needed, heartburn, Medication to be administered by the anesthesia staff (Anesthesiologist or DESIGN CENTER CONSULTANT), Starting on Sun10/17/21 at 1048, For 1 dose, Pre-Op, Indications: gastroesophageal reflux disease, Heartburn, Heartburn Prevention, Reflux 1336 (Given - Provider: Dana Peoples CRNA) HYDROmorphone (DILAUDID) injection 0.2 mg (CANCELED) 0.2 mg, intravenous, Administer over 2 Minutes, Every 5 min PRN, 1st line for pain, Use as 1st line pain med for inpatients or for patients with extremely severe pain., Starting on Sun10/17/21 at 1551, Phase I, Use as first line pain [...] Tolerance, Pain, Severe Pain with Opioid Tolerance 1611 (Given - Provider: Cyndi Wyatt RN)1619 (Given - Provider: Cyndi Wyatt, NARENDRA)1625 (Given - Provider: Cyndi Wyatt, NARENDRA)1633 (Given - Provider: Cyndi Wyatt, NARENDRA)1705 (Given - Provider: Cyndi Wyatt, NARENDRA) HYDROmorphone (DILAUDID) injection 0.2 mg 0.2 mg, intravenous, Administer over 2 Minutes, Every 4 hours PRN, 2nd line for pain, Starting on Sun10/17/21 at 1742, May administer 1 hour after second dose of 1st line analgesic agent for uncontrolled or increasing pain., Indications: Pain ondansetron (ZOFRAN) injection 4 mg(Linked Group 2) 4 mg, intravenous, Administer over 2 Minutes, Every 6 hours PRN, nausea, vomiting, if not tolerating PO, Starting on Sun10/17/21 at 1742, Indications: nausea and vomiting ondansetron ODT (ZOFRAN-ODT) disintegrating tablet 4 mg(Linked Group 2) 4 mg, oral, Every 6 hours PRN, nausea, vomiting, Starting on Sun10/17/21 at 1742, Indications: nausea and vomiting oxyCODONE-acetaminophen (PERCOCET) 5-325 mg per tablet 1 tablet 1 tablet, oral, Every 4 hours PRN, 1st line for pain, Starting on Sun10/17/21 at 1742, May repeat in 1 hour if pain is uncontrolled or increasing. Max 2 doses within 1 dosing interval., Indications: Pain 0609 (Given - Provider: Ky Pickens RN) polyethylene glycol (MIRALAX) packet 17 g 17 g, oral, Daily PRN, constipation, Starting on Sun10/17/21 at 1742, Indications: constipation povidone-iodine (BETADINE) 22.5 mL in sodium chloride 0.9% 250 mL irrigation (CANCELED) As needed, Starting on Sun10/17/21 at 1523, Intra-Op 1523 (Given - Provider: Laz Nolasco MD) sildenafiL (pulm.hypertension) (REVATIO) tablet 20 mg 20 mg, oral, As needed, pulm HTN, Starting on Sun10/17/21 at 1742, Indications: ED sodium chloride 0.9% flush 0.5-20 mL 0.5-20 mL, intra-catheter, As needed, line care, Starting on Sun10/17/21 at 1742, Flush volume based on line type and size. Flush before and after each use. Linked Groups Order Group 1: tranexamic acid (CYKLOKAPRON) 1,000 mg/100 mL (10 mg/mL) in sodium chloride (premix) 1,000 mg (COMPLETED)Jump to med 1,000 mg, intravenous, at 400 mL/hr, Administer over 15 Minutes, Once, On Sun10/17/21 at 1400, For 1 dose, Intra-Op, INTRA-OP Infuse over 10 minutes prior to skin incision, Indications: Reduction of Perioperative Blood Loss And tranexamic acid (CYKLOKAPRON) 1,000 mg/100 mL (10 mg/mL) in sodium chloride (premix) 1,000 mg (COMPLETED)Jump to med 1,000 mg, intravenous, at 400 mL/hr, Administer over 15 Minutes, Once, On Sun10/17/21 at 1400, For 1 dose, Intra-Op, INTRA-OP Infuse over 10 minutes at the start of wound closure., Indications: Reduction of Perioperative Blood Loss Group 2: ondansetron ODT (ZOFRAN-ODT) disintegrating tablet 4 mgJump to med 4 mg, oral, Every 6 hours PRN, nausea, vomiting, Starting on Sun10/17/21 at 1742, Indications: nausea and vomiting Or ondansetron (ZOFRAN) injection 4 mgJump to med 4 mg, intravenous, Administer over 2 Minutes, Every 6 hours PRN, nausea, vomiting, if not tolerating PO, Starting on Sun10/17/21 at 1742, Indications: nausea and vomiting documented in this encounter Orders Medications Ordered That Armando ht Not Have Been Administered Count Last Ordered Date First Ordered Date acetaminophen (TYLENOL) tablet 500 mg 1 camphor-menthoL (SARNA) 0.5-0.5 % lotion 1 10/17/2021 ceFAZolin (ANCEF) 1 gram/10 mL in sterile water (premix) 2,000 mg 1 10/17/2021 dexAMETHasone (DECADRON) 4 m g/mL injection 8 mg 1 10/17/2021 diphenhydrAMINE (BENADRYL) i njection 12.5 mg 1 10/17/2021 famotidine (PEPCID) injection 20 mg 1 10/17 fentaNYL (SUBLIMAZE) preserv ative free injection 25 mcg 1 10/17/2021 hydrALAZINE (APRESOLINE) injection 5 mg 1 1 12/18/2020 HYDROcodone-acetaminophen (N ORCO) 5-325 mg per tablet 1 tablet 1 10/17/2021 HYDROmorphone (DILAUDID) injection 0.2 mg 1 10/17/2021 ketorolac (TORADOL) 30 mg/mL (1 mL) injection 15 mg 1 10/17/2021 labetaloL (NORMODYNE,TRANDAT E) injection 5 mg 1 10/17/2021 Lactated Ringer's (LR) infusion 1 meperidine (DEMEROL) preserv ative free injection 12.5 mg 1 10/17/2021 naloxone (NARCAN) 0.4 mg/mL injection 0.04-0.4 mg 1 10/17/2021 ondansetron (ZOFRAN) injection 4 mg 2 10/17 ondansetron ODT (ZOFRAN-ODT) disintegrating tablet 4 mg 1 10/17/2021 peg 281-lwswhzgrnwmp-xscfyus n 1-0.36-0.2 % drops 1 drop 1 10/17/2021 polyethylene glycol (MIRALAX) packet 17 g 1 10/17/2021 prochlorperazine (COMPAZINE) injection 5 mg 1 10/17/2021 scopolamine patch 72 hour 1 patch 1 021 sildenafiL (pulm.hypertensio n) (REVATIO) tablet 20 mg 1 10/17/2021 sodium chloride 0.9% flush 0.5-20 mL 2 10/05 tranexamic acid (CYKLOKAPRON ) 1,000 mg/100 mL (10 mg/mL) in sodium chloride (premix) 1,000 mg 2 10/17/2021 Diet Count Last Ordered Date First Orde red Date ADULT DISCHARGE DIET 1 10/18/2021 Nursing Count Last Ordered Date First Orde red Date DISCHARGE ACTIVITY 1 10/18/2021 DISCHARGE CALL PROVIDER 11 10/18/2021 DISCHARGE DRESSING 1 10/18/2021 DISCHARGE INSTRUCTIONS 2 10/18/2021 WEIGHT BEARING STATUS 1 10/18/2021 documented in this encounter Care Teams Senior Oracle Developer Relationship Specialty Start Date End Date Rl Medina DO [address] [place] [address] PCP - General 08/09/17 05/25/24 documented as of this encounter
--- OUTSIDE RECORDS SUMMARY | 2024-11-05 19:28 | XMS_ITS | Encounter Summary ---
Author Organization [facility] Address [address] [place] [address] Phone Care Team Providers Care Roof Painter Name Role Phone Rl Medina DO Primary Care Provider Reason for Referral * MRI/CAT/PET Scan (Routine) - Closed Specialty Diagnoses / Procedures Referred By Manisha t Referred To Contact Radiology Diagnoses Primary osteoarthritis of left knee Procedures CT Knee Left WO Contrast Fransisco Heard MD [address] [facility] [address] [place] [address] Phone: tel: fax: [address] [phone] Referral ID Status Reason Start Date Expiration Date Visits Re quested Visits Authorized [id number] Closed 08/09/2021 09/08/2022 1 1 Encounter Details Date Type Department Care Team (Late st Contact Info) Description 08/09/2021 Orders Only [facility] Orthopaedic Surgery [address] [facility] [address] [place] [address] Fransisco Heard MD [address] [facility] [address] [place] [address] Primary osteoarthritis of left knee (Primary Dx) [...] on file 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 Severe medial compartment predominant tricompartmental left knee osteoarthritis. Dictated by: Gabriel Zhou M.D. The radiology attending physician has personally reviewed this study, and had reviewed and/or edited this written report and agrees with it. Electronically signed by: Jin Alonso M.D. Narrative 09/28/2021 12:33 PM SEWING MACHINE REPAIRER HELPER EXAMINATION: CT KNEE LEFT WO CONTRAST HISTORY: Left knee osteoarthritis. Left knee pain. TECHNIQUE: Transaxial computed tomographic imaging of the pelvis, left knee, and bilateral ankles was performed without intravenous contrast according to the custom GALE protocol. FINDINGS: Surgical clips are present within the pelvis from prior prostatectomy. No acute intrapelvic abnormality. There is no inguinal lymphadenopathy. Mild bilateral hip osteoarthritis. There is severe medial compartment predominant tricompartmental left knee osteoarthritis. A small left knee joint effusion is present. There is also a small popliteal cyst. No acute fracture. Procedure Note Jin Alonso MD PhD - 09/28/2021 EXAMINATION: CT KNEE LEFT WO CONTRAST HISTORY: Left knee osteoarthritis. Left knee pain. TECHNIQUE: Transaxial computed tomographic imaging of the pelvis, left knee, and bilateral ankles was performed without intravenous contrast according to the custom GALE protocol. FINDINGS: Surgical clips are present within the pelvis from prior prostatectomy. No acute intrapelvic abnormality. There is no inguinal lymphadenopathy. Mild bilateral hip osteoarthritis. There is severe medial compartment predominant tricompartmental left knee osteoarthritis. A small left knee joint effusion is present. There is also a small popliteal cyst. No acute fracture. IMPRESSION: 1. Severe medial compartment predominant tricompartmental left knee osteoarthritis. Dictated by: Gabriel Zhou M.D. The radiology attending physician has personally reviewed this study, and had reviewed and/or edited this written report and agrees with it. Electronically signed by: Jin Alonso M.D. us Fransisco Heard MD IMG CT PROCEDURES Final Res ult documented in this encounter Visit Diagnoses Diagnosis Primary osteoarthritis of left knee- Primary Primary osteoarthritis of left knee documented in this encounter Care Teams Roof Painter Relationship Specialty Start Date End Date Rl Medina DO [address] [place] [address] PCP - General 08/09/17 05/25/24 documented as of this encounter
--- OUTSIDE RECORDS SUMMARY | 2024-11-05 19:28 | XMS_ITS | Encounter Summary ---
Author Organization [facility] Address [address] [facility] [address] [place] [address] Phone Care Team Providers Care Director Of Maternity Services Name Role Phone Rl Medina DO Primary Care Provider Reason for Visit * Consultation (Routine) - Closed Specialty Diagnoses / Procedures Referred By Manisha gale Referred To Contact Urology Diagnoses Bladder neck obstruction Rl Medina DO [address] [place] [address] Phone: tel: fax: [facility] (All Locations) Referral ID Status Reason Start Date Expiration Date V isits Requested Visits Authorized [id number] Closed Specialty Services Required 10/10/2022 11/09/2023 99 99 Encounter Details Date Type Department Care Team (Late st Contact Info) Description 10/17/2022 1:00 PM OCEAN TRANSPORTATION INTERMEDIARY Office Visit [facility] Urology [address] [facility] [address] [place] [id number] Ashley Mcmillan MD [address] [facility] [place] [address] Lesion of urinary bladder (Primary Dx); Bladder neck obstruction; Overactive bladder; Prostate cancer (CMS/HCC) (HCC) Social History Tobacco Use Types Packs/Day [...] on file 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 The skin was prepped with betadine. Lidocaine in lubricant jelly was instilled into the urethra. Supervising Provider: DULCE Basilio N TRANSPORTATION INTERMEDIARY * Ashley Mcmillan MD - 10/17/2022 1:00 PM CST CYSTOSCOPY PROCEDURE NOTE: Indication for Cystoscopy: 72 y.o. male with a history of prior prostatectomy, prior male sling for incontinence, and persistent LUTS with irritative symptoms and concern for possible bladder neck contracture. He was counseledon options and elected to proceed with cystoscopy in the office for evaluation. After we discussed all risks/benefits/alternatives to the procedure, and the patient agreed to proceed. The flexible cystoscope was introduced into the urethra and advanced into the bladder. URETHRA: normal without lesions. PROSTATE: Surgically absent. Small dorsal false passage at the bladder neck. True bladder neck lumen patent and at least 16 Maltese with no evidence of contracture or scarring TRIGONE & UOs: normal anatomy with efflux of clear urine. BLADDER MUCOSA: abnormal, with erythematous lesions of the posterior wall and trigone; no papillaryraised lesions noted DETRUSOR: normal capacity, without flaccidity, without excessive compliance, without trabeculation or diverticula, without uninhibited bladder contractions on fillings. RETROFLEXED SCOPE VIEW: normal bladder neck. ASSESSMENT: -Patient bladder neck without calcification or contracture -Multifocal, small erythematous lesions of the posterior bladder and trigone PLAN: -Given these multifocal erythematous lesions in the absence of other pathology and continued irritative symptoms, we will plan cystoscopy and biopsy in the OR to rule out malignancy N TRANSPORTATION INTERMEDIARY * Ashley Mcmillan MD - 10/17/2022 1:00 PM CST Chief Complaint: Concern for bladder neck obstruction Overactive bladder I was requested to see Hira Evans to evaluate for the above-listed chief complaint by Dr. BryanJ. Adam DO in the Urology faculty practice clinic at [facility] in [place]. History of Present Illness: Hira Evans is a 72 y.o. male with a history of prostate cancer s/p RRP by Dr. Larson at [facility] in 2007 with undetectable PSA since that time. He had persistent stress urinary incontinence and ultimately underwent male sling placement. He had good relief for 6-7 years and reports that he then began to have overactive bladder symptoms of urinary urgency, frequency, and urge incontinence. He had evaluation with urodynamics which I have reviewed which demonstrated normal filling and detrusor activity, but concerns for urinary outlet obstruction. Cystoscopy in 2020 demonstrated a patent bladder neck and a dorsal false passage. He had continued symptoms and repeat cystoscopic evaluat ion in the office in June [address] Pizarro was concerning for a bladder neck narrowing. He was then taken to the OR for cystoscopy by Dr. Pizarro's partner at which time the bladder neck appeared patent. He was then referred to [facility] for further evaluation. Today, his PVR was <20 cc demonstrating adequate emptying. He has persistent sensation of the need to urinate even after voiding, and daytime frequency. He reports adequate strength of his stream.He denies stress incontinence. The patient's past medical, surgical, medication, allergy, family, and social histories were reviewed and are unchanged except as stated above in the HPI above. Histories: The patient's past medical history is notable for: Past Medical History: Diagnosis Date Arthritis OA GERD (gastroesophageal reflux disease) History of melanoma Hypertension Personal history of prostate cancer Seasonal allergies The patient's past surgical history is notable for: Past Surgical History: Procedure Laterality Date JOINT REPLACEMENT Right 2014 right knee replacement MELANOMA RESECTION Right 2006 right flank PROSTATECTOMY 2009 REVISION TOTAL KNEE ARTHROPLASTY Right 09/30/2019 The patient is currently taking the following medications: Current Outpatient Medications Medication Sig Dispense Refill acyclovir (ZOVIRAX) 400 mg tablet Take 400 mg by mouth 2 (two) times a day 3 aspirin 81 mg enteric coated tablet Take 1 tablet (81 mg total) by mouth 2 (two) times a day 60 tablet 0 cephalexin (KEFLEX) 500 mg capsule TAKE 2 CAPSULES BY MOUTH ONE HOUR BEFORE APPOINTMENT, THEN 1 CAPSULE 6 HOURS AFTER cholecalciferol (VITAMIN D-3) 5,000 unit capsule Take 10,000 Units by mouth every morning DILT-XR 240 mg 24 hr capsule Take 240 mg by mouth 2 (two) times a day 0 irbesartan (AVAPRO) 300 mg tablet Take 300 mg by mouth every morning loratadine (CLARITIN) 10 mg tablet Take 10 mg by mouth every morning (Patient not taking: Reported on 11/08/2021) MYRBETRIQ 25 mg tablet extended release 24 hr Take 25 mg by mouth every morning 6 omeprazole (PriLOSEC) 20 mg capsule Take 20 mg by mouth every morning Ozempic 0.25 mg or 0.5 mg(2 mg/1.5 mL) pen injector injection peg 488-kvubcdfbuxny-opyxvaor 1-0.36-0.2 % drops Administer 1 drop into affected eye(s) once daily as needed polyethylene glycol (MIRALAX) 17 gram/dose powder Take 17 g by mouth daily as needed sildenafil, antihypertensive, (REVATIO) 20 mg tablet Take 20 mg by mouth as needed No current facility-administered medications for this visit. The patient is allergic to: No Known Allergies The patient's past family history is notable for: Family History Problem Relation Age of Onset Heart disease Other Family history of cardiac disorder - (Added by TW Conv) Cancer Other Family history of malignant neoplasm - (Added by TW Conv) Heart disease Mother Anesthesia problems Neg Hx The patient's past social history is notable for: Social History Tobacco Use Smoking status: Former Packs/day: 1.00 Types: Cigarettes Start date: 1968 Quit date: 1979 Years since quittin.9 Smokeless tobacco: Never Substance and Sexual Activity Drug use: Never Sexual activity: Defer Alcohol Use: Not At Risk Frequency of Alcohol Consumption: 4 or more times a week Average Number of Drinks: 1 or 2 Frequency of Binge Drinking: Never Objective: Physical Exam Gen: Well appearing male in no distress Neuro: Alert, conversation appropriate and does not require redirection Skin: No rashes or lesions of exposed skin Head: normocephalic Ears: Hearing normal Pulm: Respirations non-labored. Abdomen: Soft. Non-tender. Non-distended. Genitourinary: No inguinal lymphadenopathy bilaterally. No external skin lesions of the genital region. Penis without lesions or tenderness to palpation. Orthotopic meatus without strictures or narrowing. Bilateral testicles descended without masses, with normal cord structures, and without tenderness to palpation. MSK: Ambulates without assistance. Moves all 4 extremities. Labs: The following lab results were personally reviewed by me: Lab Results Component Value Date GLUCOSE 209 (H) 10/18/2021 CALCIUM 8.8 10/18/2021 SODIUM 135 10/18/2021 POTASSIUM 4.2 10/18/2021 CO2 26 10/18/2021 CHLORIDE 100 10/18/2021 BUNSER 14 10/18/2021 CREATININE 0.70 (L) 10/18/2021 Lab Results Component Value Date WBC 9.0 10/18/2021 HGB 13.3 10/18/2021 HCT 37.9 (L) 10/18/2021 MCV 92.0 10/18/2021 LABPLAT 138 (L) 10/18/2021 Lab Results Component Value Date CALCIUM 8.8 10/18/2021 PSA: Outside records reviewed with undetectable PSA Medical Complexity and Decision Making: During today's visit, I addressed 3 conditions with the patient -I have reviewed and summarized records from the referring provider which were reviewed today as noted in the HPI. -I have reviewed outside test results. -I have ordered tests. -I have counseled the patient on the risks of the following diagnostic procedure(s): office cystoscopy -There was a decision for elective major surgery based upon cystoscopic findings which are separate, unrelated diagnosis (bladder lesions) Assessment/Plan: Hira Evans is a 72 y.o. male with the following diagnoses: (N32.9) Lesion of urinary bladder (primary encounter diagnosis) 2. (N32.81) Overactive bladder Cytoscopy today demonstrated a patent bladder neck, but erythematous lesions of the posterior bladder wall and trigone. While these are likely cystitis, I discussed options with the patient and as a precaution he wishes to proceed with cystoscopy and biopsy in the OR. -We will plan cystoscopy and bladder biopsy in the OR, next available -If negative, he is interested in either oral medications for OAB or consideration for bladder botox as his bladder neck is completely patent on cystoscopy at this time 3. (C61) Prostate cancer (CMS/HCC) (HCC) -Continue annual PSA surveillance with his local physician It was a pleasure to provide care for Hira Evans today. Thank you for allowing us to participate in the care of this patient. Please do not hesitate to contact my office should you have any questions or concerns at [phone]. Ashley Mcmillan MD Urologic Surgical Oncologist Division of Urologic Surgery [facility] in [place] N TRANSPORTATION INTERMEDIARY documented in this encounter Plan of Treatment Not on file documented as of this encounter Procedures Procedure Name Priority Date/Time Associated Diagnosis Comments MEASURE POST VOID RESIDUAL Routine 10/17/2022 Bladder neck obstruction documented in this encounter Results * Measure post void residual (10/17/2022) Narrative Alla Barrera, EMT - 10/17/2022 Measurement of post-voiding residual urine and/or bladder capacity by ultrasound, non-imaging. ??PVR = 12 ml us Ashley Mcmillan MD NURSING ASSESSMENTS Fide l Result documented in this encounter Visit Diagnoses Diagnosis Lesion of urinary bladder- Primary Bladder neck obstruction Overactive bladder Hypertonicity of bladder Prostate cancer (HCC) Malignant neoplasm of prostate documented in this encounter Orders Outpatient Referral Count Last Ordered Date Fir st Ordered Date AMB REFERRAL TO UROLOGY 1 10/17/2022 documented in this encounter Care Teams Director Of Maternity Services Relationship Specialty Start Date End Date Rl Medina DO [address] [place] [address] PCP - General 08/09/17 05/25/24 documented as of this encounter
--- OUTSIDE RECORDS SUMMARY | 2024-11-05 19:28 | XMS_ITS | Encounter Summary ---
Author Organization [facility] Healthcare Address [address] [place] [address] Care Team Providers Care Software Release Engineer Name Role Phone Rl Medina DO Primary Care Provider Reason for Visit * Auth/Cert Specialty Diagnoses / Procedures Referred By Contac t Referred To Contact Diagnoses Gross hematuria Lesion of bladder Gross hematuria [R31.0] Lesion of bladder [N32.9] Procedures MD CYSTOURETHROSCOPY WITH BIOPSY BIOPSY - BLADDER CYSTOSCOPY Referral ID Status Reason Start Date Expiration Date Visits Re quested Visits Authorized [id number] 1 1 Encounter Details Date Type Department Care Team (Late st Contact Info) Description 11/13/2022 9:00 AM DIESEL MOTOR MECHANIC - 11/13/2022 10:30 AM DIESEL MOTOR MECHANIC Surgery [facility] Operating Room [address] [place] [address] Ashley Mcmillan MD [address] [place] [address] BIOPSY - BLADDER Surgery Details Date/Time Status Location OR Service Patient Class Case Cl ass Case Type Trauma Case? 11/13/2022 9:00 AM Posted [facility] OPERATING ROOM OR Urology Outpatient Elective Panel 1 Procedure LRB Anes Op Region Wound Class Comments BIOPSY - BLADDER N/A General Urethra Class II - Cl kimberly Contaminated CYSTOSCOPY N/A General Urethra Class II - Clean Co ntaminated Surgeon Surgeon Role Service Panel Ashley Mcmillan MD Primary Urology 1 documented in this encounter Social [...] on file 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 DIESEL MOTOR MECHANIC Gender Identity Not on file Sexual Orientation Not on file documented as of this encounter Last Filed Vital Signs Vital Sign Reading Time Taken Comments Blood Pressure 114/56 11/13/2022 9:20 AM DIESEL MOTOR MECHANIC Pulse 51 11/13/2022 9:25 AM DIESEL MOTOR MECHANIC Temperature 35.9 ??C (96.6 ??F) 11/13/2022 9:25 AM CS T Respiratory Rate 20 11/13/2022 9:25 AM DIESEL MOTOR MECHANIC Oxygen Saturation 100% 11/13/2022 9:25 AM DIESEL MOTOR MECHANIC Inhaled Oxygen Concentration - - Weight 83.9 kg (185 lb) 10/25/2022 9:05 AM DIESEL MOTOR MECHANIC Height 172.7 cm (5' 8 ) 10/25/2022 9:05 AM DIESEL MOTOR MECHANIC Body Mass Index 28.13 10/25/2022 9:05 AM DIESEL MOTOR MECHANIC documented in this encounter Discharge Instructions * Discharge Instructions* Tangela Tolliver RN - 11/13/2022 8:09 AM DIESEL MOTOR MECHANIC Discharge Instructions: Surgery performed: Cystoscopy, bladder biopsy New medications: - Phenazopyridine as needed for pain with urination. This medication may cause your urine to turn orange or dark red in color. - Acetaminophen and ibuprofen as needed for pain, available ganw-suo-coiumqx; take this scheduled for the next 72 hours, then afterwards as needed - Docusate/miralax as needed for constipation, available uuif-sny-ommjfcs. Constipation is common after anesthesia - Macrobid, [...] AM to 5:00 PM: call Dr. Mcmillan's wet process assistant head miller Linda at [phone] and askfor a member of your doctor's team. For urgent matters after 5:00 PM during the week or on weekendsor holidays, call [phone] and ask to have the Urology Blending Line Attendant Physician paged for you. You have received anesthesia, therefore, for the next 24 hours and/or while taking narcotic pain medication; -Do NOT drive a vehicle -Do NOT drink alcohol -Do NOT make important personal or business decisions or sign legal documents. Examples of narcotic pain medication include Percocet, Oxycontin, [place], Hydrocodone, and Oxycodone. FAQs (frequently asked questions) [...] physical therapy, we are available to assist: [facility]: [facility] [phone] [place] [phone] [facility] [phone] How are some things that you can [...] given by your doctor or other health farm or ranch animal caretaker. EL MOTOR MECHANIC EL MOTOR MECHANIC * Attachments The following attachments cannot be sent through Care Everywhere. * General Anesthesia (Discharge Care) ([place]er) * Cystoscopy (Discharge Care) ([place]er) documented in this encounter Medications at Time [...] mellitus 0.5 mg Sunday09/21/2022 09/13/20 23 peg 144-cwhjhxxxngjl-q lycerin 1-0.36-0.2 % dropsIndications:D ry Eye Administer [...] for : Procedure(s): BIOPSY - BLADDER CYSTOSCOPY EL MOTOR MECHANIC Source Note - dE Whitman MD - 11/02/2022 8:01 AM DIESEL MOTOR MECHANIC Images from the original note were not included. [facility] Planning Preoperative Evaluation Record Evaluation type/location: TPAP from [facility] Planned procedure site: [facility] OR Date: 11/02/22 NOTE: This note [...] BP - 85 Pertinent negatives: CAD ; [place] ; CABG ; valvular heart disease; valve [...] provided by telephone and electronically sent via Tablo. Patient verbalized understanding of preoperative plan. Blood [...] RESECTION Right 2006 right flank ??? PROSTATECTOMY 2008 ??? REPLACEMENT [...] -- 09/21/22 -- Fidelia Perdue MD peg 960-mqejdpinljbh-uktfcksp 1-0.36-0.2 % drops -- 10/06/19 -- Fidelia [...] mg/1.5 mL) pen injector injection ??? peg 498-udjjcconvjnl-epgclchv 1-0.36-0.2 % drops ??? polyethylene glycol (MIRALAX) [...] Medication protocol when under care of a [facility] Planned anesthesia: General Informed Consent: Anesthesia plan and risks discussed with patient. Consent and Attending signature: I and/or my designee have discussed the anesthesia plan, benefits, possible alternatives, parental presence at time of induction (if indicated), and clinically relevant risks that may include dental injury, unintentional awareness, and/or other complications. The patient and/or parent/legal guardian understand, and agree to proceed. All questions answered. EL MOTOR MECHANIC EL MOTOR MECHANIC documented in this encounter Miscellaneous Notes * [...] draped in usual sterile fashion. A 21 Wolof Cystoscope with a 30 degree lens was [...] 8:18 AM No Resident involved on case EL MOTOR MECHANIC EL MOTOR MECHANIC * Perioperative Nursing Note - Em Patrick RN - 10/25/2022 9:19 AM DIESEL MOTOR MECHANIC [facility] Planning Perioperative Nursing Note Telephone Preoperative Evaluation ([facility]) - TELEPHONE ONLY, NO PHYSICAL EXAM Date: [...] pen injector injection 0.5 mg Sunday peg 495-ylrhvjviwomt-jrzmkxta 1-0.36-0.2 % drops Administer 1 drop into both eyes once daily as needed polyethylene glycol (MIRALAX) 17 gram/dose powder Take 17 g by mouth daily as needed sildenafil, antihypertensive, (REVATIO) 20 mg tablet Take 20 mg by mouth as needed Implants Bone Cement [employer] 6197-9-010 Simplex P Full Dose Radiopaque Preblend Cement Bone Tobramycin - S0- [id number] - Implanted (Right) Knee Inventory item: [employer] Simplex P Full Dose Radiopaque Preblend Cement Bone [id number] Model/Cat number: [id number] Serial number: 0 Canopy Inspector: [employer] Lot number: [id number] Device identifier: [id number] Device identifier type: GS1 As of 09/30/2019 Status: Implanted Other - see comments [employer] [id number] Kandace II 15mm Constrain Knee 5-6 Insert Articular Uhmwpe- S0 - [id number] - Implanted (Right) Knee Inventory item: [employer] Kandace Ii 15mm Constrain Knee 5-6 Insert ArticularUhmwpe [id number] Model/Cat number: [id number] Serial number: 0 Canopy Inspector: [employer] Lot number: [id number] As of 09/30/2019 Status: Implanted [employer] [id number] Legion 10mm Screw Knee 6 Wedge Femoral - S0 - [id number] -Implanted (Right) Knee Inventory item: [employer] Legion 10mm Screw Knee 6 Wedge Femoral [id number] Model/Cat number: [id number] Serial number: 0 Canopy Inspector: [employer] Device identifier: [id number] Device identifier type: [facility] As of 09/30/2019 Status: Implanted [employer] [id number] Legion Constrain Knee Right 6 Component Femoral Oxinium - S0 - [id number] - Implanted (Right) Knee Inventory item: [employer] Legion Constrain Knee Right 6 Component Femoral Oxinium [id number] Model/Cat number: [id number] Serial number: 0 Canopy Inspector: [employer] Lot number: [id number] As of 09/30/2019 Status: Implanted [employer] [id number] Legion 5mm Alcon Step Knee Right Medial Left Lateral 5-6 Wedge - S0 - [id number] - Implanted (Right) Knee Inventory item: [employer] Legion 5mm Alcon Step Knee Right Medial Left Lateral5-6 Wedge [id number] Model/Cat number: [id number] Serial number: 0 Canopy Inspector: [employer] Device identifier: [id number] Device identifier type: [facility] As of 09/30/2019 Status: Implanted [employer] [id number] Legion 15mm 160mm Press Fit Knee Stem Femoral - S0 - [id number] - Implanted (Right) Knee Inventory item: [employer] Legion 15mm 160mm Press Fit Knee Stem Femoral [id number] Model/Cat number: [id number] Serial number: 0 Canopy Inspector: [employer] Lot number: [id number] As of 09/30/2019 Status: Implanted [employer] [id number] Legion 10mm Screw Knee 6 Wedge Femoral - S0 - [id number] -Implanted (Right) Knee Inventory item: [employer] Legion 10mm Screw Knee 6 Wedge Femoral [id number] Model/Cat number: [id number] Serial number: 0 Canopy Inspector: [employer] Lot number: [id number] As of 09/30/2019 Status: Implanted [employer] [id number] Legion Revision Knee Right 5 Baseplate Tibial - S0 - [id number] - Implanted (Right) Knee Inventory item: [employer] Legion Revision Knee Right 5 Baseplate Tibial [id number] Model/Cat number: [id number] Serial number: 0 Canopy Inspector: [employer] Lot number: [id number] Device identifier: [id number] Device identifier type: GS1 As of 09/30/2019 Status: Implanted [employer] [id number] Legion 15mm 160mm Press Fit Knee Stem Femoral - S0 - [id number] - Implanted (Right) Knee Inventory item: [employer] Legion 15mm 160mm Press Fit Knee Stem Femoral [id number] Model/Cat number: [id number] Serial number: 0 Canopy Inspector: [employer] Lot number: [id number] Device identifier: [id number] Device identifier type: GS1 As of 09/30/2019 Status: Implanted [employer] 5517-F-501 Triathlon Cruciate Retain Bead Knee Left 5 Component Femoral Pa - Sn/A - [id number] - Implanted (Left) Knee Inventory item: [employer] Triathlon Cruciate Retain Bead Knee Left 5 Component Femoral Pa 5517-F-501 Model/Cat number: [id number] Serial number: N/A Canopy Inspector: [employer] Lot number: [id number] Device identifier: [id number] Device identifier type: GS1 As of 10/17/2021 Status: Implanted [employer] 5536-B-600 Triathlon Knee 6 Baseplate Tibial Tritanium - Sn/A - [id number] - Implanted (Left) Knee Inventory item: [employer] Triathlon Knee 6 Baseplate Tibial Tritanium 5536-B-600 Model/Cat number: [id number] Serial number: N/A Canopy Inspector: [employer] Lot number: [id number] Device identifier: [id number] Device identifier type: GS1 As of 10/17/2021 Status: Implanted [employer] 5166-E-672-E Insert Tibial Triathlon 6 H10mm Knee Bearing Condylar Stabilize Sterile - Sn/A - [id number] - Implanted (Left) Knee Inventory item: [employer] Insert Tibial Triathlon 6 H10mm Knee Bearing Condylar Stabilize Sterile 4304-S-822-E Model/Cat number: [id number] Serial number: N/A Canopy Inspector: [employer] Lot number: [id number] Device identifier: [id number] Device identifier type: GS1 As of 10/17/2021 Status: Implanted Type Not Specified [employer] 6197-9-010 Simplex P Full Dose Radiopaque Preblend Cement Bone Tobramycin - [id number] - Implanted (Right) Knee Inventory item: [employer] Simplex P Full Dose Radiopaque Preblend Cement Bone Twiuzfnfsp8457-9-522 Model/Cat number: [id number] Canopy Inspector: [employer] Device identifier: [id number] Device identifier type: GS1 As of 09/30/2019 [...] Systems: Spouse/significant other Assistance Needed: Spouse/ Cyda/ Distribution Collection Operator and helper Patient expects to be discharged to:: Private residence [place] NO ADDITIONAL COMMENTS/ FOLLOW UP EL MOTOR MECHANIC * Pre-Procedure Instructions - Em Patrick RN - 10/25/2022 9:11 AM DIESEL MOTOR MECHANIC [facility] ([facility]) [...] your insurance card, a photo ID (example: Distribution Collection Operator's License) and a method of payment for [...] If you are having surgery at [facility], please arrive on the day of [...] Pathway to Excellent Care by the followinglink: [email or web address] How To Prepare Your Skin [...] questions, please call the CPAP Staff at [phone], Sunday-Sunday 8am-4:30pm. All patients should read the below section: All visitors/patients are being asked to wear a clean face mask when entering the hospital. COVID 19 Updates & Visitor Policy: Please access [email or web address] for the most updated information. Information on [facility]: Please view [email or web address] (Patient & Visitor Information) for additional details regarding Advanced Directive forms, AWARE, directions, parking information, lodging, Internet access, dining and more. Information on [facility] or [facility] [place] ([facility]): Please view [email or web address] (Patient and Visitor Information) for parking/directions and more. For MyChart information, to activate account or password recovery, please go to [email or web address] or call [phone] (toll-free: [phone]). Information for Suicide Prevention: National Suicide Prevention Lifeline (9-185- 121-ITPN (9753)). Surgery Times: For patients having surgery @ [facility], [facility] Medicine, [facility] or [facility] [place] ([facility]), if your surgeon's office has not notified you of your surgery time by NOON THE BUSINESS DAY BEFORE your surgery, please call [phone] and ask for your surgeon's office Dr. Ashley Mcmillan . EL MOTOR MECHANIC documented in this encounter Plan of Treatment Not on file documented as of this encounter Procedures Procedure Name Priority Date/Time Associated Diagnosis Comments SURGICAL PATHOLOGY Routine 11/13/2022 8: 28 AM DIESEL MOTOR MECHANIC Gross hematuria Lesion of bladder CYSTOSCOPY 11/13/2022 8:14 AM DIESEL MOTOR MECHANIC Gross hematuria Lesion of bladder BIOPSY - BLADDER 11/13/2022 8:14 AM DIESEL MOTOR MECHANIC Gross hematuria Lesion of bladder POCT GLUCOSE DEVICE Routine 11/13/2022 7 :44 AM DIESEL MOTOR MECHANIC documented in this encounter Results * Surgical pathology (11/13/2022 8:28 AM DIESEL MOTOR MECHANIC) Tissue (Bladder, biopsy) 11/13/2022 8:28 AM DIESEL MOTOR MECHANIC Narrative PATHOLOGY W - 11/15/2022 1:07 PM DIESEL MOTOR MECHANIC EPIC results best viewed via link to PDF [facility] [place] [address] Note to Patients: This report may contain [...] Gender: ??M : ??1950 (Age: 72) Address: ??[address] ??[address] Hospital #: ??[id number] Taken:11/13/2022 Received:11/13/2022 Reported: 11/15/2022 Patient Type: BWC EP SAME [facility] Service: Surgery Location: Physician(s): ??Sergio Garcia D.O. [...] interpretation for this case was performed at [facility], Department of Surgical Pathology, [address] [facility] [address], [id number], ??[facility], [place] ??[address] ?? CLIA # [id number] Linda Gallardo M.D., PhD History: The patient [...] Surgical Pathology and Flow Cytometry Departments at [facility] as part of an ongoing quality assurance monitor body program and in compliance with federally mandated [...] Surgical Pathology and Flow Cytometry Departments of [facility]. ??It has not been cleared or approved by the U. S. Food and Drug Administration. IMAGES AND SCANNED DOCUMENTS, IF INCLUDED, ONLY VIEWABLE IN PDF VERSION OF REPORT Ashley Mcmillan MD LAB PATHOLOGY ORDERABLES Final Result Performing Organization Address [facility]/ZIP Co de Phone Number PATHOLOGY [facility] [phone] * POCT glucose (11/13/2022 7:44 AM DIESEL MOTOR MECHANIC) Glucose, POC 90 70 - 199 mg/dL LAURA ESPINOZA Comment: Interpretive Data Glucose is assumed to be non-fasting. Fasting Glucose reference ranges are: 0 - 150 years: ??70 mg/dL - 99 mg/dL Current interpretive data was last revised on 2014. POC Performer [id number] [facility] POC Device Number [id number] [facility] Blood 11/13/2022 7:44 AM DIESEL MOTOR MECHANIC 11/13/2022 7:44 AM DIESEL MOTOR MECHANIC Ashley Mcmillan MD LAB POCT ORDERABLES - DE VICE Final Result Performing Organization Address [facility] Co de Phone Number [facility] [address] [facility] [place] [address] documented in this encounter Visit Diagnoses Diagnosis Gross hematuria Lesion of bladder Unspecified disorder of bladder Lesion of urinary bladder Gross hematuria Lesion of bladder Unspecified disorder of bladder documented in this encounter Admitting Diagnoses [...] AnalgesiaIndications:Pre- Emptive Analgesia Given 11/13/2022 7:42 AM DIESEL MOTOR MECHANIC 1,000 mg Lactated Ringer's (LR) infusion 30 mL/hr, intravenous, Continuous, Starting on Sun11/13/22 at 0800, For 4 hours, Pre-Op, Use a 500 ml bag for End Stage Renal Disease Patients. Discontinue if fluid still running once patient arrives to floor. Rate/Dose Change 11/13/2022 8:22 AM DIESEL MOTOR MECHANIC 30 mL/hr Rate/Dose Verify 11/13/2022 8:14 AM DIESEL MOTOR MECHANIC 30 mL/h r New Bag 11/13/2022 7:42 AM DIESEL MOTOR MECHANIC 30 mL/hr 30 mL/hr sodium chloride 0.9% irrigation As needed, Starting on Sun11/13/22 at 0831, Intra-Op Given 11/13/2022 8:31 AM DIESEL MOTOR MECHANIC 3,000 mL Surgical Site documented in this encounter Discontinued Medications Medication Sig Discontinue Reason Start Date End Da te aspirin 81 mg enteric coated tabletIndications:preven tion of thrombosis Take 1 tablet (81 mg total) by mouth 2 (two) times a day Error 10/18/2021 10/25/2022 documented as of this encounter Active and Recently Administered Medications Times are shown in DIESEL MOTOR MECHANIC. Scheduled Medication Order 11/11/2022 11/12/2022 11/13/2022 acetaminophen [...] floor. 0915 (Due) PRN Medication Order 11/11/2022 11/12/2022 11/13/2022 acetaminophen (TYLENOL) tablet 500 mg 500 mg, [...] 1 11/13 prochlorperazine (COMPAZINE) injection 5 mg 1 11/13/2022 scopolamine patch 72 hour 1 patch 1 023 sodium chloride 0.9% flush 0.5-20 mL 1 07/2023 Discharge Count Last Ordered Date First Orde red Date DISCHARGE PATIENT 1 11/13/2022 documented in this encounter Care Teams Software Release Engineer Relationship Specialty Start Date End Date Rl Medina DO [address] [place] [address] PCP - General 08/09/17 05/25/24 documented as of this encounter
--- OUTSIDE RECORDS SUMMARY | 2024-11-05 19:28 | XMS_ITS | Encounter Summary ---
Author Organization [facility] Address [address] [place] [address] Phone Care Team Providers Care Database Architect Name Role Phone Rl Medina DO Primary Care Provider [phone] Reason for Referral * Diagnostic Imaging (Routine) - Closed Specialty Diagnoses / Procedures Referred By Manisha gale Referred To Contact Diagnoses Status post left knee replacement Procedures XR Knee Left 4 or More Views Shane Manriquez MD [address] [address] Phone: tel: fax: [facility] Rad[facility] [address] [place] [address] [address] [place] [address] Phone: tel: Referral ID Status Reason Start Date Expiration Date Visits Re quested Visits Authorized [id number] Closed 10/10/2022 11/09/2023 1 1 OMY PROFESSOR Reason for Visit * Reason Comments Pain Encounter Details Date Type Department Care Team (Late st Contact Info) Description 10/17/2022 11:45 AM ANATOMY PROFESSOR Office Visit [facility] Orthopaedic Surgery [facility] Medical Office Building [address] [place] [address] Shane Manriquez MD [address] [place] [address] Status post left knee replacement (Primary Dx) Social History Tobacco Use Types [...] on file 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 ANATOMY PROFESSOR Gender Identity Not on file Sexual Orientation Not on file documented as of this encounter Progress Notes * Shane Manriquez MD - 10/17/2022 11:45 AM CST RETURN PATIENT VISIT INTERIM HISTORY: Hira Evans is status post left primary knee replacement. Patient seen today for routine follow up and is doing well. He has returned to regular baseline activities and remains pleased with functional outcome. He requires no medications for pain. PAIN: None/ignore WALKING: Unlimited STAIRS: Normal SUPPORT: None PHYSICAL EXAM: Height: Weight: BMI: There is no height or weight on file to calculate BMI. LEFT KNEE: Knee Pain is noted: None Skin Status: Previous incision healed Range of Motion: Start of flexion: 0 End of flexion: 130 Extension la Flexion Contracture: 0 M/L Instability: Stable A/P Instability: Stable Alignment: neutral Neurovascular status: Intact Effusion: none Pulses Intact: Yes Dependent Edema: No Neurological Status Intact: Yes Quadriceps Muscle Strength: Excellent REVIEW OF XRAYS/STUDIES: Radiographs ordered and reviewed. Shows components are well positioned without any signs of loosening or failure. DX: Hira Evans is a 72 y.o. male status post left primary knee replacement TREATMENT PLAN: 1. The patient has been full weight bearing. 2. Encourage patient to continue to work on range of motion and quadriceps strengthening. FOLLOW UP: As long as the patient continues to do well then follow up for routine surveillance visits with ourNurse Practitioner/Physician Hammer Repairer to monitor radiograph images. Patient is welcome to come back and see me if there are any issues or problems. Shane Manriquez MD OMY PROFESSOR documented in this encounter Plan of Treatment Not on file documented as of this encounter Results * XR Knee Left 4 or More Views (10/17/2022 11:59 AM ANATOMY PROFESSOR) Anatomical Region Laterality Modality Lower Extremities, Knee Left Computed Radiography 10/17/2022 1:13 PM ANATOMY PROFESSOR Impressions 10/17/2022 1:13 PM ANATOMY PROFESSOR Unchanged 2 component left knee arthroplasty in near-anatomic alignment. Electronically signed by: Timbo Wilcox MD Narrative 10/17/2022 1:13 PM ANATOMY PROFESSOR EXAMINATION: XR KNEE LEFT 4 OR MORE VIEWS HISTORY: ??Knee pain. COMPARISONS: Radiographs 02/07/2022. ?? FINDINGS: 3 radiographs of the left knee and AP and lateral radiographs of the lower extremities were submitted for interpretation. ??Unchanged 2 component left knee arthroplasty in near-anatomic alignment. ??No hardware or periprosthetic fracture. ??No periprosthetic lucency. ??No joint effusion. Neutral mechanical axis of the lower extremities. ??Revised total right knee arthroplasty in unchanged position. Procedure Note Timbo Wilcox MD - 10/17/2022 EXAMINATION: XR KNEE LEFT 4 OR MORE VIEWS HISTORY: Knee pain. COMPARISONS: Radiographs 02/07/2022. FINDINGS: 3 radiographs of the left knee and AP and lateral radiographs of the lower extremities were submitted for interpretation. Unchanged 2 component left knee arthroplasty in near-anatomic alignment. No hardware or periprosthetic fracture. No periprosthetic lucency. No joint effusion. Neutral mechanical axis of the lower extremities. Revised total right knee arthroplasty in unchanged position. IMPRESSION: Unchanged 2 component left knee arthroplasty in near-anatomic alignment. Electronically signed by: Timbo Wilcox MD Shane Manriquez MD IMG XR PROCEDURES Final R esult documented in this encounter Visit Diagnoses Diagnosis Status post left knee replacement- Primary Status post left knee replacement documented in this encounter Historical Medications * This list may reflect changes made after this encounter. Ozempic 0.25 mg or 0.5 mg(2 mg/1.5 mL) pen injector injectionIndicat ions:type 2 diabetes mellitus 0.5 mg Sunday09/21/2022 3 cephalexin (KEFLEX) 500 mg capsule Take 1 capsule (500 mg total) by mouth daily as needed (30 minutes prior to dental appt) When pt has procedures gets pre antibiotic r/t history knee replacements 10/09/2022 4 added in this encounter Care Teams Database Architect Relationship Specialty Start Date End Date Rl Medina DO [address] [place] [address] PCP - General 08/09/17 05/25/24 documented as of this encounter
--- OUTSIDE RECORDS SUMMARY | 2024-11-05 19:28 | XMS_ITS | Encounter Summary ---
Author Organization [facility] Healthcare Address [address] [place] [address] Care Team Providers Care Regional Branch Manager Name Role Phone Rl Medina DO Primary Care Provider Encounter Details Date Type Department Care Team (Late st Contact Info) Description 09/30/2019 1:30 PM [employer] - 09/30/2019 4:25 PM [employer] Surgery [facility] Operating Room [address] [place] [address] Fransisco Heard MD [address] [id number] REVISION ARTHROPLASTY TOTAL KNEE Surgery Details Date/Time Status Location OR Service Patient Class Case Cl ass Case Type Trauma Case? 09/30/2019 1:30 PM Posted [facility] OR POD 2 207 Orthopaedics Outpatient in Bed Elective Panel 1 Procedure LRB Anes Op Region Wound Class Comments REVISION ARTHROPLASTY TOTAL KNEE Right General Knee Class I - Clean Surgeon Surgeon Role Service Panel Fransisco Heard MD Primary Orthopaedics 1 Nichole Rico MD Orthopaedic s 1 Special Needs [employer] documented in this encounter Social History Tobacco Use Types Packs/Day Years Used Date Smoking Tobacco: Former Cigarettes 1 11 1 969 - 1979 Smokeless Tobacco: Never Alcohol Use Standard Drinks/Week Comments Yes 14 (1 standard drink = 0.6 oz pu re alcohol) social Sex and Gender Information Value Date Recorded Sex Assigned at Not on file 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 [employer] Gender Identity Not on file Sexual Orientation Not on file documented as of this encounter Last Filed Vital Signs Vital Sign Reading Time Taken Comments Blood Pressure 156/95 09/30/2019 1:40 PM [employer] Pulse 56 09/30/2019 1:45 PM [employer] Temperature 36.1 ??C (97 ??F) 09/30/2019 11:30 AM [employer] Respiratory Rate 13 09/30/2019 1:45 PM [employer] Oxygen Saturation 98% 09/30/2019 1:45 PM [employer] Inhaled Oxygen Concentration - - Weight 86.2 kg (190 lb) 09/30/2019 11:40 AM [employer] Height 172.7 cm (5' 8 ) 09/30/2019 11:40 AM [employer] Body Mass Index 28.9 09/30/2019 6:56 PM [employer] documented in this encounter Discharge Summaries * Rebecca Hennessy, CARLA - 10/01/2019 8:03 AM CST Inpatient Discharge Summary Admitting Provider: Fransisco Heard MD Discharge Provider: Fransisco Heard MD Primary Care Physician at Discharge: Rl Medina DO [phone] Admission Date: 09/30/2019 Discharge Date: 10/01/2019 Primary Discharge Diagnosis: No Principal Problem: There is no principal problem currently on the Problem List. Please update the Problem List and refresh. 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 year old male cared for by Dr. Fransisco Heard. The risks, benefits, alternatives and complications of a right total knee arthroplasty was discussed with the patient at lengthprior to surgery. The patient elected to proceed with a surgical intervention given the significant influence on their quality of life. Informed consent was obtained prior to surgery. Physical Exam: On the day of discharge, the patient was afebrile with stable vital signs. Examination of the rightlower extremity revealed the patient was neurovascularly intact. Incision was clean, dry and intact. Pain was adequately maintained on oral opiates. Hospital Course: The patient was admitted on 09/30/2019 and underwent a right total knee arthroplasty. The patient tolerated the procedure well and was taken in stable condition to the postoperative recovery room then transferred to the orthopedic floor in stable condition. [...] to home with home health care on 10/01/2019. Discharge Medications: Hira Evans Home Medication Instructions [place]:[id number] Printed on:10/01/19 0503 Medication Information acyclovir (ZOVIRAX) 400 mg tablet Take 400 mg by mouth aspirin 325 mg enteric coated tablet Take 1 tablet (325 mg total) by mouth 2 (two) times a day celecoxib (CeleBREX) 100 mg capsule TAKE 2 PILLS WITH BREAKFAST THE DAY BEFORE SX. TAKE 1 PILL BID FOR 4 DAYS AFTER DISCHARGE. cholecalciferol (VITAMIN D-3) 5,000 unit capsule Take 5,000 Units by mouth every morning ciprofloxacin (CIPRO) 500 mg tablet Take 500 mg by mouth cyanocobalamin (Vitamin B-12) 2,500 mcg tablet, sublingual Take 2,500 mcg by mouth every morning DILT-XR 240 mg 24 hr capsule Take 240 mg by mouth 2 (two) times a day loratadine (CLARITIN) 10 mg tablet Take 10 mg by mouth every morning losartan (COZAAR) 100 mg tablet 100 mg every morning MYRBETRIQ 25 mg tablet extended release 24 hr Take 25 mg by mouth every morning omeprazole (PriLOSEC) 20 mg capsule Take 20 mg by mouth every morning oxyCODONE-acetaminophen (PERCOCET) 5-325 mg per tablet Take 1-2 tablets by mouth every 4 (four) hours as needed for pain senna-docusate (PERICOLACE) 8.6-50 mg Take 2 tablets by mouth 2 (two) times a day May increase to 4 tablets twice daily if needed. HOLD medication for diarrhea. sildenafil, antihypertensive, (REVATIO) 20 mg tablet Take 20 mg by mouth as needed zolpidem (AMBIEN) 10 mg tablet Take 10 mg by mouth nightly as needed Discharge Activity: 1. Weight bearing: Weight bearing as tolerated right lower extremity 2. Assistive Devices: Walker or crutches for all walking 3. DVT prophylaxis: Aspirin twice daily for 6 weeks and Active Care Pumps at all times for 10 days Discharge Diet: Resume previous diet Follow-up: Dr. Fransisco Heard on 10/22/19 at 9:45AM at OC: [facility],[address], [place] [id number]. Condition on Discharge: Stable Cosigned by Fransisco Heard MD at 10/06/2019 9:31 AM [employer] documented in this encounter Medications at Time of Discharge acyclovir (ZOVIRAX) 400 mg tabletIndications:C hronic Suppression Take 1 tablet (400 mg total) by mouth 2 (two) times a day 3 06/08/2019 4 aspirin 325 mg enteric coated tabletIndications:D eep Vein Thrombosis Prevention Take 1 tablet (325 mg total) by mouth 2 (two) times a day 84 tablet 10/01/2019 1 celecoxib (CeleBREX) 100 mg capsuleIndications: Osteoarthritis,Post operative Acute Pain TAKE 2 PILLS WITH BREAKFAST THE DAY BEFORE SX. TAKE 1 PILL BID FOR 4 DAYS AFTER DISCHARGE. 10 capsule 07/23/2019 9 cholecalciferol (VITAMIN D-3) 5,000 unit capsuleIndications: Vitamin D Deficiency Take 1 capsule (5,000 Units total) by mouth every morning 4 ciprofloxacin (CIPRO) 500 mg tabletIndications:P rophylaxis, Surgical,Before Dental Take 500 mg by mouth 08/27/2019 1 cyanocobalamin (Vitamin B-12) 2,500 mcg tablet, sublingualIndicatio ns:Prevention of Vitamin B12 Deficiency,OTC Take 2,500 mcg by mouth every morning 1 DILT-XR 240 mg 24 hr capsuleIndications: hypertension Take 1 capsule (240 mg total) by mouth 2 (two) times a day 0 05/12/2019 4 loratadine (CLARITIN) 10 mg tabletIndications:A llergic Rhinitis Take 1 tablet (10 mg total) by mouth daily as needed for allergies 3 losartan (COZAAR) 100 mg tabletIndications:h ypertension 100 mg every morning 1 mirabegron ER (MYRBETRIQ) 25 mg tablet extended release 24 hrIndications:Bladd er Hyperactivity Take 1 tablet (25 mg total) by mouth every morning 6 07/08/2019 3 omeprazole (PriLOSEC) 20 mg capsuleIndications: Treatment of Non-Bleeding Gastric Disorder,GERD Take 1 capsule (20 mg total) by mouth every morning 4 ondansetron (Zofran) 4 mg tablet Take 1 tablet by mouth every 6 hours 10/24/2018 1 oxyCODONE-acetamino phen (PERCOCET) 5-325 mg per tabletIndications:P ain Take 1-2 tablets by mouth every 4 (four) hours as needed for pain 54 tablet 10/01/2019 1 senna-docusate (PERICOLACE) 8.6-50 mgIndications:const ipation Take 2 tablets by mouth 2 (two) times a day May increase to 4 tablets twice daily if needed. HOLD medication for diarrhea. 60 tablet 1 10/01/2019 1 sildenafil, antihypertensive, (REVATIO) 20 mg tabletIndications:E D Take 1 tablet (20 mg total) by mouth as needed 3 zolpidem (AMBIEN) 10 mg tabletIndications:S leep-Onset Insomnia Take 10 mg by mouth nightly as needed 1 documented as of this encounter Ordered Prescriptions Prescription Sig Dispense Quantity Refills Last Filled Start Date End Date senna-docusate (PERICOLACE) 8.6-50 mgIndications:cons tipation Take 2 tablets by mouth 2 (two) times a day May increase to 4 tablets twice daily if needed. HOLD medication for diarrhea. 60 tablet 1 10/01/2019 1 aspirin 325 mg enteric coated tabletIndications: Deep Vein Thrombosis Prevention Take 1 tablet (325 mg total) by mouth 2 (two) times a day 84 tablet 10/01/2019 1 oxyCODONE-acetamin ophen (PERCOCET) 5-325 mg per tabletIndications: Pain Take 1-2 tablets by mouth every 4 (four) hours as needed for pain 54 tablet 10/01/2019 1 documented in this encounter Discharge Disposition Disposition Code Departure Means Destination Discharge to home, home health skilled care documented in this encounter Progress Notes * Moni Walker RN - 10/01/2019 12:51 PM CST 10/01/19 1100 Information Information Obtained From Patient Referral Data Referral Source Forest Officer Referral Reason Discharge Planning Prior to Admission Primary Caregiver Self Support System Spouse/Significant Other Support system contact info (name, phone, availablity) daniel-Val [phone] Home Care Services Yes Type of Home Care Services Home therapies;Nurse visit Home care service name and phone number [facility] [phone] Durable Medical Equipment None Living Arrangements Spouse/significant other (lives with ) Type of Residence Private residence Potential Discharge Needs Home Health Physical therapy;nursing home Anticipated discharge level of care Private residence Pt/Family agrees with Anticipated Level of Care Yes Patient expects to be discharged to: Private residence Dialysis No Behavioral Health Services No Chart reviewed for medical necessity. Patient admitted for treatment of: R TKA Information obtained from: patient Insurance verified as: Medicare/AARP Prescription Coverage: yes PCP verified as: Dr. Rl Medina, Transportation: per Admission Source: non-healthcare facility Additional Information/Options Discussed: Verified demographic information from the face sheet withthe patient. Explained role and purpose of case hardener. Denies the use of home health in the past - a list will be provided if recommended. Patient chose [facility] to follow with RN and PT at discharge. Patient will also go home with ABF with After Care Pumps and [facility] with a wheeled walker. factory manager to continue to follow for planning and referrals as needed. Discussed mobile pharmacy. Patient/Family agreeable with discharge plan. Based on a comprehensive family assessment, assistance with instrumental activities of daily livingafter discharge will be provided by . Through the course of our work I determined that possesses the skill and ability to provide and monitor the care of the patient when he or she returns home. has the capacity to provide/monitor/arrange for the care of the patient. Finally, we determined that has the knowledge of available resources and that combining them with their existing resources will suffice to sustain and care for the patient when he or she returns home. The treatment team is aware of this information. All are in agreement with the aftercare plan. Problem: Establish a safe discharge Goal: Implement a safe discharge home with family support with PCP follow up [employer] * Moni Walker RN - 10/01/2019 12:51 PM CST 09/30/19 845 Discharge Summary Chart reviewed For Medical Necessity Does patient have a planned readmission to hospital planned? No Discharge Disposition Home with Home Health (PT/OT/RN);Home with DME Equipment/Provider Needs Home Provider Services Needs Identified;Home Equipment Needs Identified Home Care Agency Information Home Care Agency Name [facility] Home Care Agency Home Care Agency Contact Spoken to [facility] Order Faxed to [phone] Home Equipment Information Home Equipment Provider Name [facility] Home Equipment Provider Equipment Ordered ACP [employer] Provider Used? [employer] Needed Home Equipment Information #2 Home Equipment Provider #2 Name [facility] Home Equipment Provider #2 Equipment Ordered from second company Wheeled walker Discharge Additional Assistance Does the patient need discharge transport arranged? No Post Discharge Care Provider Post Discharge Care Plan DC Summary has been faxed to next level of care provider (see Follow Up Providers) [employer] * Nichole Rico MD - 10/01/2019 7:02 AM CST Ortho Recon Daily Progress Subjective This patient is postoperative day 1 following revision R TKA Interval History: Doing well, pain controlled. Has been up. Voiding independently but post void retention. Objective Vitals: 24hr Min/Max: Temp Min: 36.1 ??C (97 ??F) Max: 36.7 ??C (98.1 ??F) Pulse Min: 50 Max: 79 BP Min: 135/86 Max: 162/81 Resp Min: 12 Max: 29 SpO2 Min: 94 % Max: 100 % Most Recent : Vitals: 10/01/19 0405 BP: 135/86 Pulse: 79 Resp: 16 Temp: 36.7 ??C (98.1 ??F) SpO2: 96% I/O last 2 completed shifts: In: 2200 [I.V.:1200; IV Piggyback:1000] Out: 3955 [Urine:3955] No intake/output data recorded. Surgical Site 09/30/19 Right Knee closed surgical wound (Active) Site Assessment BIBI 09/30/2019 8:30 PM Ruben-wound Assessment BIBI 09/30/2019 8:30 PM Closure Unable to assess 09/30/2019 8:30 PM Drainage Amount None 09/30/2019 8:30 PM Drainage Odor No odor 09/30/2019 4:41 PM Dressing Status Clean/Dry/Intact 09/30/2019 8:30 PM Dressing Moses wrap;Dry dressing 09/30/2019 8:30 PM Physical Exam: Awake, alert, oriented No acute distress Breathing regular and unlabored Dressing clean and dry Sensation intact in the superficial peroneal, deep peroneal, and tibial nerves 5/5 strength TA, GS, EHL, FHL Dorsalis pedis pulse on affected limb palpable Lab/Radiology/Diagnostic Review: Laboratory review: reviewed the laboratory result(s) wnl Assessment/Plan Harris removed, straight cath prn (no scan if voiding independently) Weight bearing:Weight bearing as tolerated right lower extremity Mobilize with Physical therapy and Occupational therapy Pain: controlled on current regimen DVT prophylaxis: Aspirin/Active Care Pumps Additional needs: none Discharge planning: Home with home health today Nichole Rico MD Adult Reconstruction Fellow Pager: [phone] [employer] documented in this encounter H&P Notes * Nichole Rico MD - 09/30/2019 12:50 PM CST I have reviewed the H&P, examined the patient, and endorse the findings as written. Plan of Care : Based on the above findings, I consider Hira Evans to be an acceptable risk for : Procedure(s): REVISION ARTHROPLASTY TOTAL KNEE Cosigned by Fransisco Heard MD at 09/30/2019 1:40 PM [employer] Source Note - Kasey Guerrero SENIOR STOCK PLAN ADMINISTRATOR - 09/03/2019 2:55 PM CDT Images from the original note were not included. Center for Preoperative Assessment and Planning Preoperative Evaluation Record Evaluation type/location: CPAP [facility] Date: 09/03/19 Anesthesia Evaluation Hira Evans is a 69 y.o. male Procedure(s): REVISION ARTHROPLASTY TOTAL KNEE Pre-Op Diagnosis Codes: * Presence of right artificial knee joint [Z96.651] * Failure of total knee replacement, subsequent encounter [T84.018D, Z96.659] HISTORY HPI Hira Evans is a 69 y.o. male who is being evaluated prior to undergoing right revision arthroplasty of the knee for failure of right total knee replacement. Past Medical History Information obtained from: patient and chart. Neurological Pertinent negatives: seizures; neuromuscular disease; CVA/stroke; TIA; CEA; ICA stenosis; dementia/mild cognitive impairment and carotid artery stent Cardiovascular + Hypertension Typical systolic BP - 125 Typical diastolic BP - 85 Pertinent negatives: CAD ; OR ; CABG ; valvular heart disease; valve replacement; atrial fibrillation; arrhythmia; pacemaker/ICD; PVD; DVT/PE; negative for CHF; drug-eluting stent(s); bare metal stent(s) and coronary angioplasty Respiratory Pertinent negatives: COPD; asthma; sleep apnea (KYLE); pulmonary hypertension; no O2 use outside thehospital and non-smoker Hepatic / Heme Pertinent negatives: liver disease; history of anemia; history of thrombocytopenia and history of Jigna positive Gastrointestinal + GERD - on daily therapy. Asymptomatic. Pertinent negatives: hiatal hernia Renal / Pertinent negatives: renal disease; dialysis and nephrolithiasis Musculoskeletal/Pain + Chronic pain (Right Knee) + Osteoarthritis (Right knee) Pertinent negatives: chronic opioid use and previous treatment for opioid use disorder Endocrine / Other + Obesity (BMI >30) + Cancer history Cancer type: Hx of prostate cancer s/p prostatectomy in 2009 and melanoma on rightflank s/p resected in 2005. Pertinent negatives: diabetes mellitus; thyroid disease; rheumatological disease and transplanted organ Functional Capacity Functional capacity: 4-6 METs Comments: Patient able to ambulate 4 city blocks and 2 flights of stairs without SOB/CP. Does endorse right knee discomfort on occasion when ambulating long distances. Review of Systems + chronic pain (Right Knee) + vision loss (Glasses) Pertinent negatives: productive cough; wheezing; SOB; recent cold/flu; fever; chest pain; palpitations; orthopnea; pedal edema; PND; Sickle Cell disease/trait; previous transfusion; transfusion reaction; melena/hematochezia; easy bruising; bleeding problems; syncope; dizziness; muscle weakness; numb ness/tingling; hard of hearing; heartburn; nausea; dysphagia; diarrhea; dentures/partials; chipped/loose teeth; abdominal pain; diaphoresis and no unexpected weight change PAT Summary and Plans Cardiac risk classification of planned procedure: intermediate cardiac risk. Preoperative assessment status: lab tests ordered. Initial preoperative evaluation discussed with: Conor Knapp MD Additional comments: Hira Evans is a 69 y.o. male who is being evaluated prior to undergoing anintermediate cardiac risk surgery. Revised Cardiac Risk Index factors are (none) for a total RCRI of 0 out of 6. Functional capacity is 4-6 METs. Obstructive sleep apnea (KYLE) screening status is STOP-Bang=3 suggesting moderate risk for KYLE. The patient is at elevated risk for obstructive sleep apnea (KYLE) per STOP-BANG screening questionnaire results. Patient informed of the possibility that they have undiagnosed KYLE, which may increasetheir risk for perioperative respiratory events. Patient also informed of the possible long-term health problems associated with KYLE. Because we do not feel that preoperative KYLE testing is likely tooutweigh the downsides of delaying surgery, we have recommended that the patient talk to their primary doctor or other clinician after surgery about getting tested for KYLE. Blood bank needs for day of procedure: T&C 1 unit pRBCs Pending labs/tests include: CBC CMP 14 day T&S Urinalysis flex Vitamin D DOS T&S Preoperative evaluation performed by Carlos Manuel Good NP on 09/03/19 at 3:22 PM. . Follow up note Labs reviewed and are significant for a total CO2 of 29. With a STOP-Bang score of 3-4, this qualifies the patient as high risk for severe KYLE. KYLE order set initiated. Otherwise Labs reviewed and are without significant findings. Surgeon's office reviews laboratory results independently. CPAP process complete. Follow-up completed by: Kasey Guerrero NP on 09/04/19 at 1:05 PM Patient Active Problem List Diagnosis ??? Knee pain ??? Presence of right artificial knee joint ??? Primary osteoarthritis of left knee ??? Failed total knee arthroplasty (CMS/HCC) Past Medical History: Diagnosis Date ??? Arthritis OA ??? GERD (gastroesophageal reflux disease) ??? History of melanoma ??? Hypertension ??? Personal history of prostate cancer ??? Seasonal allergies Past Surgical History: Procedure Laterality Date ??? JOINT REPLACEMENT Right 2014 right knee replacement ??? MELANOMA RESECTION Right 2005 right flank ??? PROSTATECTOMY 2008 No Known Allergies Med List Status: Nurse Complete Set By: Jorge Jerome RN at 09/03/2019 2:51 PM Taking? Last Dose Start Date End Date Provider acetaminophen (TYLENOL) 500 mg tablet -- -- Historical Provider, acyclovir (ZOVIRAX) 400 mg tablet 06/08/19 -- Historical Provider, celecoxib (CeleBREX) 100 mg capsule 07/23/19 -- Fransisco Heard MD TAKE 2 PILLS WITH BREAKFAST THE DAY BEFORE SX. TAKE 1 PILL BID FOR 4 DAYS AFTER DISCHARGE. cholecalciferol (VITAMIN D-3) 5,000 unit capsule -- -- Historical Provider, ciprofloxacin (CIPRO) 500 mg tablet 08/27/19 -- Historical Provider, Notes: For dental procedures . cyanocobalamin (Vitamin B-12) 2,500 mcg tablet, sublingual -- -- Historical Provider, DILT-XR 240 mg 24 hr capsule 05/12/19 -- Historical Provider, loratadine (CLARITIN) 10 mg tablet -- -- Historical Provider, losartan (COZAAR) 100 mg tablet -- -- Historical Provider, multivitamin with iron-mineral tablet -- -- Historical Provider, MYRBETRIQ 25 mg tablet extended release 24 hr 07/08/19 -- Historical Provider, omeprazole (PriLOSEC) 20 mg capsule -- -- Historical Provider, sildenafil, antihypertensive, (REVATIO) 20 mg tablet -- -- Historical Provider, zolpidem (AMBIEN) 10 mg tablet -- -- Historical Provider, Current Outpatient Medications: ??? acetaminophen (TYLENOL) 500 mg tablet ??? acyclovir (ZOVIRAX) 400 mg tablet ??? celecoxib (CeleBREX) 100 mg capsule ??? cholecalciferol (VITAMIN D-3) 5,000 unit capsule ??? ciprofloxacin (CIPRO) 500 mg tablet ??? cyanocobalamin (Vitamin B-12) 2,500 mcg tablet, sublingual ??? DILT-XR 240 mg 24 hr capsule ??? loratadine (CLARITIN) 10 mg tablet ??? losartan (COZAAR) 100 mg tablet ??? multivitamin with iron-mineral tablet ??? MYRBETRIQ 25 mg tablet extended release 24 hr ??? omeprazole (PriLOSEC) 20 mg capsule ??? sildenafil, antihypertensive, (REVATIO) 20 mg tablet ??? zolpidem (AMBIEN) 10 mg tablet Social History Tobacco Use Smoking Status Former Smoker ??? Packs/day: 1.00 ??? Types: Cigarettes ??? Start date: 1968 ??? Last attempt to quit: 1979 ??? Years since quittin.8 Smokeless Tobacco Never Used Substance and Sexual [...] Appears intact Skin Exam: Skin is warm. Capillary refill is < 3 seconds. Turgor is normal. Abdominal exam: Abdomen is soft. Bowel sounds are present. Current state: Patient's current state is cooperative. Additional comments: A&Ox4 Vitals: 09/03/19 1455 09/03/19 1500 BP: 132/80 128/83 Pulse: 53 Resp: 18 SpO2: 97% Relevant diagnostics: ECG(s): N/A Echocardiogram(s): N/A Stress test(s): N/A Cardiac catheterization(s): N/A PFT(s): N/A Vascular studies: N/A Other: Xray Bilateral Knees 07/23/19 IMPRESSION: 1. Unchanged, near anatomic alignment of a right total knee arthroplasty. 2. Interval progression of now moderate, medial joint space predominant, tricompartmental left knee osteoarthritis. ?? PT: No results found for requested labs [...] for requested labs within last 720 hours. STOP-Bang Total Score: 3 Joni index score: 100 AD8 Dementia Score: 0 Short Blessed Total Score: 0 Anesthesia Plan documented in this encounter Nursing Notes * Aziza Batista RN - 10/01/2019 6:19 AM CST Rebecca Hennessy SENIOR STOCK PLAN ADMINISTRATOR notified RN emptied 400ml urine from urinal but pt stated he voided about 4 timesin the same urinal. 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 Post void residual was 967ml. Order to straight cath and to give urecholine. Will continue to monitor. [employer] documented in this encounter Miscellaneous Notes * Plan of Care - Joann Matthews PT - 10/01/2019 11:25 AM CST Problem: Mobility Goal: STG - Patient will ambulate Description 100 ft With supervision WW Outcome: Completed Goal: STG - Patient will ambulate up and down a curb/step Description curb step With supervision WW Outcome: Completed Problem: PT Misc Goal: STG - Misc 1 Description Pt to perform TKA protocol without verbal cues. Outcome: Completed [employer] * Plan of Care - Divina Alaniz RN - 10/01/2019 10:55 AM CST Problem: Health Behavior: Goal: Understanding [...] Goals: Clinical Goals for the Shift: Pain control, OOB tonight, void. Summary: Patient is progressing towards goals. Patient will be discharging after work with PT today. [employer] * Plan of Care - Aziza Batista RN - 09/30/2019 8:47 PM CST Goals: Problem: Health Behavior: Goal: [...] Goal: Pain level will decrease Outcome: Progressing Clinical Goals for the Shift: Pain control, OOB tonight, void. Summary: Patient progressing towards goals. [employer] * Plan of Care - Divina Alaniz RN - 09/30/2019 7:07 PM CST Problem: Health Behavior: Goal: Understanding of discharge needs will improve Outcome: Progressing Goals: Clinical Goals for the Shift: Pain control, OOB tonight, void. Summary: Patient is progressing towards goals. [employer] * Op Note - Fransisco Heard MD - 09/30/2019 2:41 PM CST OPERATIVE REPORT ATTENDING SURGEON: Fransisco Heard M.D. FIRST AUTH[employer] MOTIVATIONAL: Nichole Rico M.D. SECOND/THIRD AUTHORS MOTIVATIONAL: Tabitha Jones PREOPERATIVE DIAGNOSIS: Failed right total knee arthroplasty, instability POSTOPERATIVE DIAGNOSIS: Failed right total knee arthroplasty, instability PROCEDURE: Right revision total knee arthroplasty IMPLANTS: Folder Tier: [employer] Brand: Legion Tibial component size: size 5, 5mm medial augment Femoral component size: 6, 10mm distal femur medial augment, 10mm distal femur lateral augument Patellar Button: patellar button retained Bearing type: Condylar Constrained Tibial Insert Size: 5-6 Insert Thickness: 15mm SURGICAL DETAILS: 1) Incision/arthrotomy type: Medial parapatellar 2) Estimated blood loss: 250cc 3) Urine output: see anesthesia record 4) Crystalloid replacement: see anesthesia record 5) Colloid replacement: 0 6) Blood replacement: 0 7) Anesthesia type: General 8) Specimens removed: Ritika Nex Gen TKA explanted 9) Capsular injection: 30 mL of 0.5% Marcaine with epinephrine and 30 mg of Toradol 10) Tourniquet Use: From incision until final components in place 11) Tourniquet Time in Minutes: 67 minutes INDICATIONS FOR PROCEDURE: This patient presents today with history of right total knee arthroplasty in 2010. He has knee painand instability. Exam and imaging consistent with loose tibial component, possible loose femoral component. After infection was ruled out, the patient was indicated for revision total knee arthroplasty. Risks of surgery including bleeding, infection, damage to surrounding structures, persistent pain or instability, hardware complication, need for further surgery, DVT, PE, OR, stroke, and were discussed. After all questions were answered, written consent was confirmed. PROCEDURE: The patient was brought to the operating room and placed on the operating room table in the supine position. After anesthesia was established, the patient was positioned supine. Bony prominences werepadded. The patient was given prophylactic antibiotics within one hour of skin incision. The involved lower extremity was prepped and draped in usual sterile fashion. Surgical timeout was taken to confirm the operative side and planned procedure. A straight incision was made using the previously performed midline anterior incision. This was extended approximately 2cm proximally. The incision was carried through the subcutaneous tissue to the underlying extensor mechanism. A medial parapatellar approach was utilized. Upon entry into the joint, clear, yellow synovial fluid was encountered. There was synovial tissue pericapsular, which was excised to aid in exposure. The polyethyelene was removed using an osteotome. We then removed the femoral component by using osteotomes to separate the implant from bone. The femur was removed with minimal bone loss. We next turned to the tibia. An oscillating was was used to along the bone implant in terface. Once the anterior tibia was released, the tibial tray was easily removed. There was an area of debonded cement centrally and posteriorly. We removed cement with osteotomes, rongeurs, and pituitary rongeurs. The tibial and femoral canals were debrided and cement, soft tissue, and an intramedullary membrane was excised. The knee was then thoroughly irrigated. We reamed by hand in the tibial canal until we had a secure fit. A tibial tray was trialed and a size 5 was selected. The tibia was re-cut taking minimal bone to freshen the surface. The tray was elevated medially so we selected a 5mm augment, which provided good fit. Next, we hand reamed in the femoral canal until we had a tight fit. The cutting block was placed over the reamer and distal femoral cuts were made through the most distal guide. We then sized the femur and selected a size 6. Through the cutting block, we made the posterior and champfer cuts. A trial femur was then placed and thebox was cut. We next trialed with a condylar constrained poly. The knee was loose in extension so we added 10mm distal femoral augments medially and laterally. When were were happy with the stabilityin flexion, extension and with varus and valgus stress final implants were selected. The knee was irrigated and thoroughly dried. We cemented in the tibia and femoral components and trialed again. Gian implanted our final poly. The wound was irrigated with a 3 minute betadine soak followed by irrigation with saline. The capsule was closed with vicryl and a running quill suture. Subcutaneous tissue was closed with 2-0 monocryl followed by a running subcuticular quill. A prenio dressing was placed and the knee was wrapped in an MOSES. The patient tolerated the procedure well and was taken to the recovery room in stable condition. EXCEPTIONS/COMPLICATIONS: None SPONGE, INSTRUMENT AND NEEDLE COUNTS: Correct x 2. See Dr. Heard's attending addendum for further details. ATTENDING SURGEON ADDENDUM: I was present for all critical portions of the case including component removal, insertion of all trials and implants, and assessment of alignment stability, range of motion, and patellar tracking. Dr. Nichole Rico was present for the noncritical portions of the procedure. Please also note that Dr. Rico was necessary for the procedure as engineer first assistant, because total knee replacementis a difficult procedure, requiring at least two skilled and experienced surgeons. One surgeon was necessary to help maintain exposure and assist with the use of specific total knee replacement instrumentation, while the primary surgeon performed the procedure and no qualified resident was available. [employer] * Brief Op Note - Nichole Rico MD - 09/30/2019 2:41 PM [employer] Operative Progress Note Surgical Team: Surgeon(s) and Role: * Fransisco Heard MD - Primary * Nichole Rico MD Anesthesiologist: Edmond Barker MD SALES AND PRODUCTION MANAGER: Rafael Selby [facility] BLANKA, SALES AND PRODUCTION MANAGER; Mildred Harrison CRNA Garnishment Specialist: Giovana Masterson RN; Will Rodrigez RN Physician Stringer Up Soldering Machine: SREEDHAR Alcazar Scrub: Joann Hernandez RN; Grace Brothers RN DATE OF SURGERY : 09/30/2019 Preoperative Diagnosis: Pre-op Diagnosis * Presence of right artificial knee joint [Z96.651] * Failure of total knee replacement, subsequent encounter [T84.018D, Z96.659] Postoperative Diagnosis: Post-op Diagnosis * Presence of right artificial knee joint [Z96.651] * Failure of total knee replacement, subsequent encounter [T84.018D, Z96.659] Procedure(s): Procedure(s) (LRB): REVISION ARTHROPLASTY TOTAL KNEE (Right) Operative Findings: Cement debonding on tibia Femoral component removed without complication Estimated Blood Loss: No blood loss documented. Intraoperative Fluids: See anesthesia record Specimens: No specimen collected in procedure Implants: Implant Name Type Inv. Item Serial No. Folder Tier Lot No. LRB No. Used [employer] 6197-9-010 SIMPLEX P FULL DOSE RADIOPAQUE PREBLEND CEMENT BONE TOBRAMYCIN - S0- [id number] Bone Cement [employer] 6197-9-010 Simplex P Full Dose Radiopaque Preblend Cement Bone Tobramycin 0 [facility] [employer] [id number] Right 2 [employer]ICH[employer]ORTHO [id number] FRANCINE II 15MM CONSTRAIN KNEE 5-6 INSERT ARTICULAR UHMWPE - S0 - [id number] Other - see comments [employer]RICH[employer]/ORTHO [id number] Francine Ii 15mm Constrain Knee 5-6 Insert Articular Uhmwpe 0 [employer]/Ortho [id number] Right 1 [employer]ORTHO [id number] LEGION 10MM SCREW KNEE 6 WEDGE FEMORAL - S0 - [id number] Other - see comments [employer]ICH[employer]/ORTHO [id number] Legion 10mm Screw Knee 6 Wedge Femoral 0 [employer]Orth[employer] Right 1 [employer]/ORTHO [id number] LEGION CONSTRAIN KNEE RIGHT 6 COMPONENT FEMORAL OXINIUM - S0 - [id number] Other - see comments [employer]ICH[employer]/ORTHO [id number] Legion Constrain Knee Right 6 Component Femoral Oxinium 0 [employer]/Ortho [id number] Right 1 [employer]ORTHO [id number] LEGION 5MM ALCON STEP KNEE RIGHT MEDIAL LEFT LATERAL 5-6 WEDGE - S0 - [id number] Other - see comments [employer]ICH[employer]/ORTHO [id number] Legion 5mm Alcon Step Knee Right Medial Left Lateral 5-6 Wedge 0 [employer]Ortho Right 1 [employer]ORTHO [id number] LEGION 15MM 160MM PRESS FIT KNEE STEM FEMORAL - S0 - [id number] Other - see comments [employer]ICH[employer]ORTHO [id number] Legion 15mm 160mm Press Fit Knee Stem Femoral 0 [employer]/Ortho [id number] Right 1 [employer]ICH[employer]/ORTHO [id number] LEGION 10MM SCREW KNEE 6 WEDGE FEMORAL - S0 - [id number] Other - see comments [employer]ICH[employer]/ORTHO [id number] Legion 10mm Screw Knee 6 Wedge Femoral 0 [employer]Orth[employer] [id number] Right 1 [employer]ORTHO [id number] LEGION REVISION KNEE RIGHT 5 BASEPLATE TIBIAL - S0 - [id number] Other - see comments [employer]ORTHO [id number] Legion Revision Knee Right 5 Baseplate Tibial 0 [employer]Or[employer] [id number] Right 1 [employer]RICH[employer]/ORTHO [id number] LEGION 15MM 160MM PRESS FIT KNEE STEM FEMORAL - S0 - [id number] Other - see comments [employer]RICHCO/ORTHO [id number] Legion 15mm 160mm Press Fit Knee Stem Femoral 0 [employer]/Rich[employer]/Ortho [id number] Right 1 [employer] 6197-9-010 SIMPLEX P FULL DOSE RADIOPAQUE PREBLEND CEMENT BONE TOBRAMYCIN - [id number] [employer] 6197-9-010 Simplex P Full Dose Radiopaque Preblend Cement Bone Tobramycin [facility] Right 2 Blood/Blood Products Transfused: 0 mls Complications: None Condition on Discharge from the operating room was stable Nichole Rico MD Date: 09/30/2019 Time: 4:28 PM [employer] documented in this encounter Plan of Treatment Not on file documented as of this encounter Procedures Procedure Name Priority Date/Time Associated Diagnosis Comments CBC WITHOUT DIFFERENTIAL Routine 09/30/2019 9:35 PM [employer] BASIC METABOLIC PANEL Routine 09/30/2019 9:35 PM [employer] XR KNEE RIGHT 1 OR 2 VIEWS STAT 09/30/2019 6:07 PM [employer] REVISION ARTHROPLASTY TOTAL KNEE 09/30/2019 1:57 PM [employer] 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, subsequent encounter Special Needs Naima Legion TYPE AND SCREEN STAT 09/30/2019 12:00 PM [employer] documented in this encounter Results * (ABNORMAL) CBC without differential (09/30/2019 9:35 PM [employer]) WBC 8.5 3.8 - 9.9 K/cumm [facility] Hgb 13.9 13.0 - 17.5 g/dL [facility] Hct 40.3 38.9 - 50.3 % [facility] Plt 118(L) 150 - 400 K/cumm [facility] MPV 12.2 9.1 - 12.3 fL [facility] RBC 4.34 4.30 - 5.80 M/cumm [facility] MCV 92.9 81.3 - 96.4 fL [facility] MCH 32.0 27.1 - 33.3 pg [facility] MCHC 34.5 32.3 - 35.7 g/dL [facility] RDW CV 12.1 11.1 - 14.9 % [facility] RDW SD 42.2 35.7 - 48.1 fL [facility] NRBC abs 0.00 0.00 - 0.01 K/cumm [facility] Blood specimen (specimen) 09/30/2019 9:35 PM [employer] 09/30/2019 10:52 PM [employer] Nichole Rico MD LAB BLOOD ORDERABLES Final Result Performing Organization Address City/[facility]/ZIP Co de Phone Number [facility] Department [place] [address] * (ABNORMAL) Basic metabolic panel (09/30/2019 9:35 PM [employer]) Pathologist [facility] Sodium 136 135 - 145 mmol/L [facility] Potassium, pl 4.0 3.3 - 4.9 mmol/L [facility] Chloride 101 97 - 110 mmol/L [facility] CO2 24 22 - 32 mmol/L [facility] Anion gap 11 2 - 15 mmol/L [facility] BUN 12 8 - 25 mg/dL [facility] Creatinine 0.74(L) 0.80 - 1.30 mg/dL [facility] Glucose 203(H) 70 - 199 mg/dL [facility] Comment: Interpretive Data Fasting glucose >/= 126 [...] interpretive data was last revised 2017. Calcium 8.5 8.5 - 10.3 mg/dL [facility] Blood specimen (specimen) 09/30/2019 9:35 PM [employer] 09/30/2019 10:52 PM [employer] Nichole Rico MD LAB BLOOD ORDERABLES Final Result Performing Organization Address [facility]/State/[facility] Co de Phone Number [facility] [place] [address] * XR Knee Right 1 or 2 View (09/30/2019 6:07 PM [employer]) Anatomical Region Laterality Modality Lower Extremities, Knee Right Computed Radiography 10/01/2019 5:52 AM [employer] Impressions 10/01/2019 5:52 AM [employer] 1. ??Revision right total knee arthroplasty in near-anatomic position Electronically signed by: Oskar Ackerman MD, PHD Narrative 10/01/2019 5:52 AM [employer] EXAMINATION: Right knee one or 2 views HISTORY: ??Revision right total knee arthroplasty FINDINGS: 2 view examination right knee is compared to radiographs from 09/03/2019. There has been interval revision of the right total knee arthroplasty with components in near-anatomic position. Soft tissue swelling, intra-articular distal soft tissue gas, knee joint effusion are present. There is no fracture. Procedure Note Oskar Ackerman MD PhD - 10/01/2019 EXAMINATION: Right knee one or 2 views HISTORY: Revision right total knee arthroplasty FINDINGS: 2 view examination right knee is compared to radiographs from 09/03/2019. There has been interval revision of the right total knee arthroplasty with components in near-anatomic position. Soft tissue swelling, intra-articular distal soft tissue gas, knee joint effusion are present. There is no fracture. IMPRESSION: 1. Revision right total knee arthroplasty in near-anatomic position Electronically signed by: Oskar Ackerman MD, PHD Nichole Rico MD IMG XR PROCEDURES Fi nal Result * Type and screen (09/30/2019 12:00 PM [employer]) ABO Rh O Positive LAURA CORRAL Jigna, indirect Negative LAURA CORRAL Blood specimen (specimen) 09/30/2019 12:00 PM [employer] 09/30/2019 12:22 PM [employer] Narrative LAURA ZARAGOZA - 09/30/2019 1:51 PM [employer] Has the patient had Daratumumab (Darzalex) in the past 6 months?->No us Carlos Manuel Good NP LAB BLOOD BANK TEST JOSE PRUITT Final Result LAURA ZARAGOZA [facility] Department [place] [address] documented in this encounter Visit Diagnoses Diagnosis Failure of total knee replacement, initial encounter (HCC)- Primary 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 (CMS/HCC) (HCC) 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, subsequent encounter documented in this encounter Admitting Diagnoses Diagnosis 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 (CMS/[facility]) ([facility]) documented in this encounter Administered Medications Inactive Administered Medications - up to 3 most recent administrations Medication Order MAR Action Action Date Dose Rate Site aspirin enteric coated tablet 325 mg 325 mg, oral, 2 times daily, First dose on Sun09/30/19 at 2100, Start first dose POD#0 at 2100. Do not crush, chew, cut, dissolve, open or otherwise manipulate tablet/capsule., Indications: Deep Vein Thrombosis PreventionIndications:Deep Vein Thrombosis Prevention Given 10/01/2019 8:15 AM [employer] 325 mg Given 09/30/2019 8:22 PM [employer] 325 mg benzocaine-menthol (CHLORASEPTIC) lozenge 1 lozenge 1 lozenge, mouth/throat, Every 4 hours PRN, sore throat, Starting on Sun09/30/19 at 2140 Given 10/01/2019 8:17 AM [employer] 1 lozenge Given 09/30/2019 10:28 PM [employer] 1 lozenge bupivacaine-EPINEPHrine (MARCAINE with EPI) 60 mL, ketorolac (TORADOL) 30 mg solution As needed, Starting on Sun09/30/19 at 1448, Intra-Op Given 09/30/2019 2:48 PM [employer] 61 mL Surgical Site ceFAZolin (ANCEF) 1,000 mg in sodium chloride 0.9% 1,000 mL irrigation solution As needed, Starting on Sun09/30/19 at 1449, Intra-Op Given 09/30/2019 2:49 PM [employer] 1,000 mL Surgical Site celecoxib (CeleBREX) capsule 100 mg 100 mg, oral, 2 times daily, First dose on Sun09/30/19 at 2100, Please schedule to start morning POD#1, Indications: PainIndications:Pain Given 10/01/2019 8:16 AM [employer] 100 mg dilTIAZem XR (CARDIZEM CD,DILACOR XR) 24 hour capsule 240 mg 240 mg, oral, 2 times daily, First dose on Sun09/30/19 at 2100, Do not crush, chew, cut, dissolve, open or otherwise manipulate tablet/capsule., Indications: hypertensionIndications:hyperten hakeem Given 10/01/2019 8:16 AM [employer] 240 mg Given 09/30/2019 10:29 PM [employer] 240 mg famotidine (PEPCID) tablet 20 mg 20 mg, oral, 2 times daily, First dose on Sun09/30/19 at 2100, Indications: HeartburnIndications:Heartburn Given 10/01/2019 8:16 AM [employer] 20 mg Lactated Ringer's (LR) infusion 30 mL/hr, intravenous, Continuous, Starting on Sun09/30/19 at 1215, Pre-Op New Bag 09/30/2019 3:05 PM [employer] Rate/Dose Verify 09/30/2019 1:57 PM [employer] New Bag 09/30/2019 12:27 PM [employer] 30 mL/hr 30 mL/hr losartan (COZAAR) tablet 100 mg 100 mg, oral, Every morning, First dose on Sun10/01/19 at 0900, Indications: hypertensionIndications:hypertension Given 10/01/2019 8:16 AM [employer] 100 mg mirabegron ER (MYRBETRIQ) extended release tablet 25 mg 25 mg, oral, Every morning, First dose on Sun10/01/19 at 0900, Do not crush, chew, cut, dissolve, open or otherwise manipulate tablet/capsule., Indications: Bladder HyperactivityIndications:Bladder Hyperactivity Given 10/01/2019 8:16 AM [employer] 25 mg oxyCODONE-acetaminophen (PERCOCET) 5-325 mg per tablet 1 tablet 1 tablet, oral, Every 4 hours PRN, 1st line for pain, Starting on Sun09/30/19 at 1902, May repeat in 1 hour if pain is uncontrolled or increasing. Max 2 doses within 1 dosing interval., Indications: PainIndications:Pain Given 10/01/2019 11:30 AM [employer] 1 tablet Given 10/01/2019 6:01 AM [employer] 1 tablet Given 09/30/2019 8:23 PM [employer] 1 tablet senna-docusate (PERICOLACE) 8.6-50 mg per tablet 2 tablet 2 tablet, oral, 2 times daily, First dose on Sun09/30/19 at 2100, Hold for diarrhea., Indications: constipationIndications:constipation Given 10/01/2019 8:16 AM [employer] 2 table ts Given 09/30/2019 8:22 PM [employer] 2 tablets sodium chloride 0.9% flush 0.5-20 mL 0.5-20 mL, intra-catheter, Every 8 hours scheduled, First dose on Sun09/30/19 at 2200, Flush volume based on line type and size. Given 10/01/2019 6:01 AM [employer] 10 mL Given 09/30/2019 8:23 PM [employer] 10 mL sodium chloride 0.9% infusion 100 mL/hr, intravenous, Continuous, Starting on Sun09/30/19 at 1815, Phase I & Post-op Floor New Bag 09/30/2019 7:16 PM [employer] 100 mL/hr 100 mL/hr vancomycin (VANCOCIN) solution As needed, Starting on Sun09/30/19 at 1610, Intra-Op Given 09/30/2019 4:10 PM [employer] 500 mg Surgical Site documented in this encounter Discontinued Medications Medication Sig Discontinue Reason Start Date End Da te multivitamin with iron-mineral tabletIndications:Mine ral Deficiency Prevention,Vitamin Deficiency Prevention Take 1 tablet by mouth every morning 09/30/2019 acetaminophen (TYLENOL) 500 mg tablet Take 1,000 mg by mouth every 6 (six) hours as needed for pain Stop Taking at Discharge 10/01/2019 AMOXICILLIN 500 mg capsule TK 1 C PO TID TAT Stop Taking at Discharge 09/07/2019 10/01/2019 documented as of this encounter Active and Recently Administered Medications Times are shown in [employer]. Scheduled Medication Order 09/29/2019 09/30/2019 10/01/2019 acetaminophen (TYLENOL) tablet 650 mg (COMPLETED) 650 mg, oral, Once, On Sun09/30/19 at 1215, For 1 dose, Pre-Op, Indications: Pain 1201 (Given - Provider: Meryl Read RN) aspirin enteric coated tablet 325 mg 325 mg, oral, 2 times daily, First dose on Sun09/30/19 at 2100, Start first dose POD#0 at 2100. Do not crush, chew, cut, dissolve, open or otherwise manipulate tablet/capsule., Indications: Deep Vein Thrombosis Prevention 2021 (Given - Provider: Aziza Batista RN) 0815 (Given - Provider: Divina Alaniz RN) bethanechol (URECHOLINE) tablet 25 mg (COMPLETED) 25 mg, oral, Every 1 hour, First dose (after last modification) on Sun10/01/19 at 0715, For 3 doses, Indications: Urinary Retention 721 (Given - Provid er: Aziza Batista RN)08 (Given - Provider: Divina Alaniz RN)09 (Given - Provider: Divina Alaniz RN) ceFAZolin (ANCEF) 2,000 mg/20 mL in sterile water (premix) 2,000 mg (COMPLETED) 2,000 mg, intravenous, at 400 mL/hr, Administer over 3 Minutes, Every 8 hours, First dose on Sun09/30/19 at 2200, For 2 doses, Beginning 8 hours after last ruben-operative dose., Indications: Prophylaxis, Surgical 2228 (New Bag - Provider: Aziza Batista RN)2231 (Stopped - Provider: Aziza Batista RN) 06 (New Bag - Provider: Aziza Batista RN) celecoxib (CeleBREX) capsule 100 mg 100 mg, oral, 2 times daily, First dose on Sun09/30/19 at 2100, Please schedule to start morning POD#1, Indications: Pain 1951 (Not Given - Provider: Aziza Batista RN - Reason: Other - Comment: 09/30 POD#0) 0816 (Given - Provider: Divina Alaniz RN) dilTIAZem XR (CARDIZEM CD,DILACOR XR) 24 hour capsule 240 mg 240 mg, oral, 2 times daily, First dose on Sun09/30/19 at 2100, Do not crush, chew, cut, dissolve, open or otherwise manipulate tablet/capsule., Indications: hypertension 2228 (Given - Provider: Aziza Batista RN) 0816 (Given - Provider: Divina Alaniz RN) famotidine (PEPCID) tablet 20 mg 20 mg, oral, 2 times daily, First dose on Sun09/30/19 at 2100, Indications: Heartburn 2021 (Not Given - Provider: Aziza Batista RN - Reason: Other - Comment: last given at 1456) 0816 (Given - Provider: Divina Alaniz RN) ketorolac (TORADOL) 15 mg/mL injection 15 mg (COMPLETED) 15 mg, intravenous, Every 6 hours, First dose on Sun09/30/19 at 1945, For 2 doses, For Adult IV push, administer over 15 seconds, Indications: Pain 2021 (Given - Provider: Aziza Batista RN) 0126 (Given - Provider: Aziza Batista RN) Lactated Ringer's (LR) bolus 1,000 mL (COMPLETED) 1,000 mL, intravenous, Once, On Sun09/30/19 at 1215, For 1 dose, Pre-Op 1202 (New Bag - Provider: Meryl Read RN)1227 (Stopped - Provider: Kari Romano RN) losartan (COZAAR) tablet 100 mg 100 mg, oral, Every morning, First dose on Sun10/01/19 at 0900, Indications: hypertension 0816 (Given - Provid er: Divina Alaniz RN) mirabegron ER (MYRBETRIQ) extended release tablet 25 mg 25 mg, oral, Every morning, First dose on Sun10/01/19 at 0900, Do not crush, chew, cut, dissolve, open or otherwise manipulate tablet/capsule., Indications: Bladder Hyperactivity 0816 (Given - Provid er: Divina Alaniz RN) senna-docusate (PERICOLACE) 8.6-50 mg per tablet 2 tablet 2 tablet, oral, 2 times daily, First dose on Sun09/30/19 at 2100, Hold for diarrhea., Indications: constipation 2021 (Given - Provider: Aziza Batista RN) 0816 (Given - Provider: Divina Alaniz RN) sodium chloride 0.9% flush 0.5-20 mL 0.5-20 mL, intra-catheter, Every 8 hours scheduled, First dose on Sun09/30/19 at 2200, Flush volume based on line type and size. 2022 (Given - Provider: Aziza Batista RN) 0601 (Given - Provider: Aziza Batista RN) Continuous Medication Order 09/29/2019 09/30/2019 10/01/2019 Lactated Ringer's (LR) infusion 30 mL/hr, intravenous, Continuous, Starting on Sun09/30/19 at 1215, Pre-Op 1227 (New Bag - Provider: Sreedhar Romano RN)1357 (Rate/Dose Verify - Provider: Rafael Shaw III, MICAH)1505 (New Bag - Provider: Rafael Shaw III, MICAH)1626 (Stopped - Provider: Mildred Harrison CRNA) sodium chloride 0.9% infusion 100 mL/hr, intravenous, Continuous, Starting on Sun09/30/19 at 1815, Phase I & Post-op Floor 1916 (New Bag - Provider: Divina Alaniz RN) PRN Medication Order 09/29/2019 09/30/2019 10/01/2019 benzocaine-menthol (CHLORASEPTIC) lozenge 1 lozenge 1 lozenge, mouth/throat, Every 4 hours PRN, sore throat, Starting on Sun09/30/19 at 2140 2228 (Given - Provider: Aziza Batista RN) 0817 (Given - Provider: Divina Alaniz RN) bupivacaine-EPINEPHrine (MARCAINE with EPI) 60 mL, ketorolac (TORADOL) 30 mg solution (CANCELED) As needed, Starting on Sun09/30/19 at 1448, Intra-Op 1448 (Given - Provider: Fransisco Heard MD - Comment: delivered to the field) camphor-menthol (SARNA) 0.5-0.5 % lotion topical, Every 2 hours PRN, other, itching, Starting on Sun09/30/19 at 1902, Apply to affected area: other, Indications: Urticaria ceFAZolin (ANCEF) 1,000 mg in sodium chloride 0.9% 1,000 mL irrigation solution (CANCELED) As needed, Starting on Sun09/30/19 at 1449, Intra-Op 1449 (Given - Provider: Fransisco Heard MD - Comment: via posavac) HYDROmorphone (DILAUDID) injection 0.4 mg (CANCELED) 0.4 mg, intravenous, Administer over 2 Minutes, Every 10 min PRN, 2nd line for pain, Starting on Sun09/30/19 at 1741, Phase I, May administer 10 mintes after 2nd dose of 1st line analgesic agent for uncontrolled or increasing pain. Revert to 1st line dose if POSS of 3. Notify Anesthesiologist if total PACU dose reaches 2 mg and pain score 5/10 or more., Indications: Pain 174 (Given - Provider: Adan Blunt RN)1756 (Given - Provider: Adan Blunt, RN) oxyCODONE-acetaminophen (PERCOCET) 5-325 mg per tablet 1 tablet 1 tablet, oral, Every 4 hours PRN, 1st line for pain, Starting on Sun09/30/19 at 1902, May repeat in 1 hour if pain is uncontrolled or increasing. Max 2 doses within 1 dosing interval., Indications: Pain 2022 (Given - Provider: Aziza Batista RN) 0601 (Given - Provider: Aziza Batista RN)1130 (Given - Provider: Divina Alaniz RN) polyethylene glycol (MIRALAX) packet 17 g 17 g, oral, Daily PRN, constipation, Starting on Sun09/30/19 at 1902, Indications: constipation sodium chloride 0.9% flush 0.5-20 mL 0.5-20 mL, intra-catheter, As needed, line care, Starting on Sun09/30/19 at 1902, Flush volume based on line type and size. Flush before and after each use. vancomycin (VANCOCIN) solution (CANCELED) As needed, Starting on Sun09/30/19 at 1610, Intra-Op 1610 (Given - Provider: Fransisco Heard MD - Comment: right knee) documented in this encounter Orders Medications Ordered That Armando ht Not Have Been Administered Count Last Ordered Date First Ordered Date bethanechol (URECHOLINE) tablet 25 mg 2 acetaminophen (TYLENOL) tablet 650 mg 1 aspirin enteric coated tablet 325 mg 1 09/06 benzocaine-menthol (CHLORASE PTIC) lozenge 1 lozenge 1 09/30/2019 camphor-menthol (SARNA) 0.5-0.5 % lotion 1 09/30/2019 ceFAZolin (ANCEF) 2,000 mg/2 0 mL in sterile water (premix) 2,000 mg 2 09/30/2019 celecoxib (CeleBREX) capsule 100 mg 1 09/30 dilTIAZem XR (CARDIZEM CD,DI LACOR XR) 24 hour capsule 240 mg 1 09/30/2019 famotidine (PEPCID) tablet 20 mg 1 09/30/20 19 HYDROmorphone (DILAUDID) injection 0.2 mg 1 09/30/2019 HYDROmorphone (DILAUDID) injection 0.4 mg 1 09/30/2019 ketorolac (TORADOL) 15 mg/mL injection 15 mg 1 09/30/2019 Lactated Ringer's (LR) bolus 1,000 mL 1 Lactated Ringer's (LR) infusion 1 9 losartan (COZAAR) tablet 100 mg 1 9 mirabegron ER (MYRBETRIQ) ex tended release tablet 25 mg 1 09/30/2019 naloxone (NARCAN) 0.4 mg/mL injection 0.04-0.4 mg 1 09/30/2019 ondansetron (ZOFRAN) injection 4 mg 1 09/30 oxyCODONE-acetaminophen (PER COCET) 5-325 mg per tablet 1 tablet 1 09/30/2019 polyethylene glycol (MIRALAX) packet 17 g 1 09/30/2019 senna-docusate (PERICOLACE) 8.6-50 mg per tablet 2 tablet 1 09/30/2019 sodium chloride 0.9% flush 0.5-20 mL 4 09/06 sodium chloride 0.9% infusion 1 09/30/2019 General Supply Count Last Ordered Date First Or dered Date WALKER 1 10/01/2019 Diet Count Last Ordered Date First Orde red Date ADULT DISCHARGE DIET 1 10/01/2019 Nursing Count Last Ordered Date First Orde red Date DISCHARGE ACTIVITY 1 10/01/2019 DISCHARGE CALL PROVIDER 11 10/01/2019 DISCHARGE DRESSING 1 10/01/2019 DISCHARGE INSTRUCTIONS 3 10/01/2019 WEIGHT BEARING STATUS 1 10/01/2019 documented in this encounter Care Teams Regional Branch Manager Relationship Specialty Start Date End Date Rl Medina DO [address] [place] [address] PCP - General 08/09/17 05/25/24 documented as of this encounter
--- OUTSIDE RECORDS SUMMARY | 2024-11-05 19:28 | XMS_ITS | Encounter Summary ---
Author Organization [facility] Healthcare Address [address] [place] [address] Care Team Providers Care Coffee Taster Name Role Phone Rl Medina DO Primary Care Provider Encounter Details Date Type Department Care Team (Latest Contact Info) Description 10/17/2021 10:26 AM PACKAGE REINSPECTOR - 10/18/2021 9:53 AM PACKAGE REINSPECTOR Hospital Encounter [facility] [id number] [place] [address] Fransisco Heard MD [address] [facility] [facility] [address] [place] [address] Primary osteoarthritis of left knee (Primary Dx) Discharge Disposition: Discharge to home, home health skilled care Social History Tobacco Use Types Packs/Day [...] on file 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 PACKAGE REINSPECTOR Gender Identity Not on file Sexual Orientation Not on file documented as of this encounter Last Filed Vital Signs Vital Sign Reading Time Taken Comments Blood Pressure 131/80 10/18/2021 9:00 AM PACKAGE REINSPECTOR Pulse 60 10/18/2021 9:00 AM PACKAGE REINSPECTOR Temperature 36.5 ??C (97.7 ??F) 10/18/2021 9:00 AM CS T Respiratory Rate 20 10/18/2021 9:00 AM PACKAGE REINSPECTOR Oxygen Saturation 97% 10/18/2021 9:00 AM PACKAGE REINSPECTOR Inhaled Oxygen Concentration - - Weight 89 kg (196 lb 3.2 oz) 10/17/2021 10:47 AM PACKAGE REINSPECTOR Height 172.7 cm (5' 8 ) 10/17/2021 10:47 AM PACKAGE REINSPECTOR Body Mass Index 29.83 10/17/2021 10:47 AM PACKAGE REINSPECTOR documented in this encounter Discharge Diagnoses Diagnosis Unilateral primary osteoarthritis, left knee - UNILATERAL PRIMARY OSTEOARTHRITIS, LEFT KNEE Essential (primary) hypertension - ESSENTIAL (PRIMARY) HYPERTENSION Unspecified essential hypertension Gastro-esophageal reflux disease without esophagitis - GASTRO-ESOPHAGEAL REFLUX DISEASE WITHOUT ESOPHAGITIS Obesity, unspecified - OBESITY, UNSPECIFIED Presence of right artificial knee joint - PRESENCE OF RIGHT ARTIFICIAL KNEE JOINT Personal history of malignant neoplasm of prostate - PERSONAL HISTORY OF MALIGNANT NEOPLASM OF PROSTATE Personal history of malignant melanoma of skin - PERSONAL HISTORY OF MALIGNANT MELANOMA OF SKIN Other nursing home (current) drug therapy - OTHER RAIL ENGINEER (CURRENT) DRUG THERAPY 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) Personal history of nicotine dependence - PERSONAL HISTORY OF NICOTINE DEPENDENCE documented in this encounter Discharge Summaries * Vibha Taylor NP - 10/18/2021 6:50 AM CST Inpatient Discharge Summary Admitting Provider: Fransisco Heard MD Discharge Provider: Fransisco Heard MD Primary Care Physician at Discharge: Rl Medina DO [phone] Admission Date: 10/17/2021 Discharge Date: 10/18/2021 Primary [...] Relief 1-0.36-0.2 % drops Generic drug: peg 625-lceiftgfpcaq-speaeggz STOP taking these medications ciprofloxacin 500 mg tablet Commonly known as: CIPRO COENZYME Q10 ORAL turmeric root extract 500 mg capsule Tylenol Extra Strength 500 mg tablet Generic drug: acetaminophen Where to Get Your Medications These medications were sent to [facility] - [address] [address] aspirin 81 mg enteric coated tablet oxyCODONE-acetaminophen 5-325 mg per tablet senna-docusate 8.6-50 mg Discharge Activity: Weight bearing: Weight bearing as tolerated left lower extremity Assistive Devices: Walker or crutches for all walking DVT prophylaxis: Aspirin 81mg twice daily for 30 days Discharge Diet: Resume previous diet Follow-up: Dr. Fransisco Heard. on 11/08/2021 at 11:45am at [facility], [address] [place] [address], Medical Office Building [address], [address] [address]. Condition on Discharge: Stable Cosigned by Fransisco Heard MD at 10/18/2021 3:12 PM PACKAGE REINSPECTOR AGE REINSPECTOR AGE REINSPECTOR documented in this encounter Discharge Instructions * Discharge Instr - Other Orders* Melissa Roth RN - 10/18/2021 9:16 AM PACKAGE REINSPECTOR CM has not secured home care yet. I gave pt the Virtual PT paper work if I can not secure home carehe has agreed to virtual services thru [facility]. I will call pt to f/u. AGE REINSPECTOR documented in this encounter Medications at Time [...] pain 56 tablet 10/17/2021 02/08/20 22 peg 891-sqoqkeyzoxeq-c lycerin 1-0.36-0.2 % dropsIndications:D ry Eye Administer [...] Unable to assess 10/17/211999 Drainage Amount None 10/17/211799 Dressing Status Clean, dry, intact 10/17/211999 Dressing [...] Fransisco Heard MD at 10/18/2021 3:13 PM PACKAGE REINSPECTOR AGE REINSPECTOR AGE REINSPECTOR * Lu Maria, PT - 10/18/2021 7:00 AM CST [facility] Treatment Patient Name: Hira Evans Date of Service: 10/18/2021 Date of : 1950 Age: 71 y.o. male Room: [address] Admit Date: 10/17/2021 Attending Provider: Fransisco [...] toe out 1x10 Comments: Per myMobility protocol Pat performed some of the exercises and reviewed [...] appropriately per protocol with assistance from joint lacrosse coach as needed in order to safely return home by 10/19/2021. Comments: Completed ?? Plan Physical therapy frequency: Other (comment) (PT D/C) Recommended equipment to safely discharge: wheeled walker - patient already owns Recommended method of transportation at discharge: Personal vehicle with family Referrals Recommended: None Patient okay to discharge: Yes Discharge Recommendation: Home with family,Home Health PT Lu Maria, PT AGE REINSPECTOR * Kasey Jones RN - 10/14/2021 2:46 PM CST 10/14/21 1444 Information Information Obtained From Patient Referral Data Referral Source Physician Referral Reason Discharge Planning Prior to Admission Primary Caregiver Self Support System Spouse/Significant Other Support system contact info (name, phone, availablity) /WILY Val Evans [phone] Home Care Services Yes Type of Home Care Services Home therapies;Nurse visit Durable Medical Equipment Walker (wheeled) Living Arrangements Spouse/significant other Type of Residence Private residence AGE REINSPECTOR * Kasey Jones RN - 10/14/2021 2:44 PM CST 10/14/21 1444 Communications Patient choice (Home Health/Hospice) list given to patient/transportation services representative? Yes No HH preference AGE REINSPECTOR documented in this encounter H&P Notes * Fransisco Heard MD - 10/17/2021 11:25 AM CST I have reviewed the H&P, examined the patient, and endorse the findings as written. Plan of Care : Based on the above findings, I consider Hira Evans to be an acceptable risk for : Procedure(s): ARTHROPLASTY LEFT TOTAL KNEE - GALE ROBOTIC ARM AGE REINSPECTOR AGE REINSPECTOR Source Note - Caron Valverde, SYSTEMS INTEGRATION MANAGER - 09/27/2021 10:15 AM PACKAGE REINSPECTOR Images from the original note were not included. Center for Preoperative Assessment and Planning Preoperative Evaluation Record Evaluation type/location: CPAP [facility] Planned procedure site: [facility] OR Date: 09/28/21 Anesthesia Evaluation Hira Evans [...] BP - 85 Pertinent negatives: CAD ; CT ; CABG ; valvular heart disease; valve [...] s/p prostatectomy in 2008 and melanoma on right flank s/p resected in 2005. Pertinent negatives: diabetes [...] for KYLE. Blood bank needs for day procedure: No type and screen needed Pending [...] testing to be performed on 10/15 in [place]. [facility] will place the order for [...] capsule -- -- Fidelia Perdue MD peg 092-czxmkfkarvtk-slozffmt (Visine Tired Eye Relief) 1-0.36-0.2 % drops [...] omeprazole (PriLOSEC) 20 mg capsule ??? peg 300-ztegupwslehs-kbgawmms (Visine Tired Eye Relief) 1-0.36-0.2 % drops [...] history of malignant neoplasm - (Added by Conv) ??? Heart disease Mother ??? Anesthesia [...] for requested labs within last 720 hours. AGE REINSPECTOR AGE REINSPECTOR AGE REINSPECTOR documented in this encounter Consult Notes * Lu Maria, PT - 10/17/2021 5:40 PM CST [facility] Initial Evaluation Patient Name: Hira Evans Date of Service: 10/17/2021 Date of : 1950 Age: 71 y.o. male Room: [address] Admit Date: 10/17/2021 Attending Provider: Fransisco [...] 2006 right flank ??? PROSTATECTOMY 2009 ??? REVISION [...] appropriately per protocol with assistance from joint lacrosse coach as needed in order to safely [...] with family,Home Health PT Lu Maria, PT AGE REINSPECTOR documented in this encounter Miscellaneous Notes * [...] impaired skin integrity will decrease Outcome: Progressing AGE REINSPECTOR * Plan of Care - Melissa Roth RN - 10/18/2021 9:53 AM CST UNABLE TO SECURE HOME CARE FOR PT & ORDERS PLACED FOR VIRTUAL PT SERVICES WITH [facility]. PT HAS THECONSENT FORMS & I CALLED & INFORMED HIM. AGE REINSPECTOR * Plan of Care - Melissa Roth RN - 10/18/2021 9:16 AM CST CM has not secured home care yet. I gave pt the Virtual PT paper work if I can not secure home carehe has agreed to virtual services thru [facility]. I will call pt to f/u. AGE REINSPECTOR * Plan of Care - Ky Pickens [...] impaired skin integrity will decrease Outcome: Progressing AGE REINSPECTOR * Plan of Care - Carey Marroquin [...] with therapy. Dinner ordered, no c/o N/V. AGE REINSPECTOR * Perioperative Nursing Note - Cyndi Wyatt RN - 10/17/2021 4:23 PM CST VSS; MD [place] at bedside for signout; pt denies nausea; pain 5/10 with PRN pain medication; xraycomplete; bolus administered as ordered; ready to TTF; will continue to monitor; AGE REINSPECTOR * Op Note - Fransisco Heard MD - 10/17/2021 2:04 PM CST OPERATIVE REPORT ATTENDING SURGEON: Fransisco Heard M.D. FIRST WILDFIRE PREVENTION SPECIALIST: Laz Nolasco M.D. PREOPERATIVE DIAGNOSIS: Left knee osteoarthritis POSTOPERATIVE DIAGNOSIS: Left knee osteoarthritis PROCEDURE: Left cementless total knee arthroplasty - GALE (MAKOplasty) robotic assisted IMPLANTS: Shower Attendant: Liliana Brand: Triathlon Tibial component size: 6 Femoral [...] Marginal osteophytes were removed and a lamina railroad engineer was utilized with the knee in 90 [...] notethat was necessary for the procedure as bindery library technical assistant, because robotic total knee replacement is a difficult procedure, requiring at least two skilled and experienced surgeons. One surgeon was necessary to help maintain exposure and assist with the use of specific robotic total knee replacement instrumentation, while the primary surgeon performed the procedure and no qualified resident was available. AGE REINSPECTOR AGE REINSPECTOR AGE REINSPECTOR * Brief Op Note - Laz Nolasco MD - 10/17/2021 2:04 PM CST Operative Progress Note Surgical Team: Surgeon(s) and Role: * Fransisco Heard MD - Primary * Laz Nolasco MD - Fellow Anesthesiologist: Edmond Hickey MD; Darrian Gonzales MD MOLDING CUTTER: Luana Hartmann CRNA; Dana Peoples CRNA Sagger Soak: Dania Barnes RN Scrub: Melvina Ptoter RN; Cally Nguyen RN TELEVISION JOURNALIST: Keysha Baeza RNFA; Em Biswas RN DATE [...] Implant Name Type Inv. Item Serial No. Shower Attendant Lot No. LRB No. Used Action [employer] 5517-F-501 TRIATHLON CRUCIATE RETAIN BEAD KNEE LEFT 5 COMPONENT FEMORAL PA - SN/A - [id number] Other - see comments [employer] 5517-F-501 Triathlon Cruciate Retain BeadKnee Left 5 Component Femoral Pa N/A [employer] [id number] Left 1 Implanted [employer] 5536-B-600 TRIATHLON KNEE 6 BASEPLATE TIBIAL TRITANIUM - SN/A - [id number] Other - see comments [employer] 5536-B-600 Triathlon Knee 6 Baseplate Tibial Tritanium N/A [employer] [id number] Left 1 Implanted [employer] [id number] INSERT TIBIAL TRIATHLON 6 H10MM KNEE BEARING CONDYLAR STABILIZE STERILE - SN/A - [id number] Other - see comments [employer] [id number] Insert Tibial Triathlon 6 H10mm Knee Bearing Condylar Stabilize Sterile N/A [employer] [id number] Left 1 Implanted Blood/Blood Products Transfused: 0 mls Complications: None Condition on Discharge from the operating room was stable Laz Nolasco MD Date: 10/17/2021 Time: 3:52 PM No Resident involved on case Cosigned by Fransisco Heard MD at 10/17/2021 10:45 PM PACKAGE REINSPECTOR AGE REINSPECTOR AGE REINSPECTOR documented in this encounter Plan of Treatment Not on file documented as of this encounter Procedures Procedure Name Priority Date/Time Associated Diagnosis Comments EGFR Routine 10/18/2021 4:03 AM PACKAGE REINSPECTOR CBC WITHOUT DIFFERENTIAL Routine 10/18/2021 4:03 AM PACKAGE REINSPECTOR BASIC METABOLIC PANEL Routine 10/18/2021 4:03 AM PACKAGE REINSPECTOR XR KNEE LEFT 1 OR 2 VIEWS ED Urgent/IP Urgent 10/17/2021 4:12 PM PACKAGE REINSPECTOR ARTHROPLASTY TOTAL KNEE ? GALE ROBOTIC ARM 10/17/2021 1:38 PM PACKAGE REINSPECTOR Primary osteoarthritis of left knee Special Needs Hoods documented in this encounter Results * eGFR (10/18/2021 4:03 AM PACKAGE REINSPECTOR) [facility] eGFR 99 mL/min/1. 73 m2 [facility] [...] last reviewed 2021. Blood 10/18/2021 4:03 AM PACKAGE REINSPECTOR 10/18/2021 4:09 AM PACKAGE REINSPECTOR us Fransisco Heard MD LAB BLOOD ORDERABLES Final Result [facility] [id number] [facility] [email or web address] [address] * (ABNORMAL) CBC without differential (10/18/2021 4:03 AM PACKAGE REINSPECTOR) Pathologist [facility] WBC 9.0 3.8 - 9.9 K/cumm [facility] Hgb 13.3 13.0 - 17.5 g/dL [facility] Hct 37.9(L) 38.9 - 50.3 % [facility] Plt 138(L) 150 - 400 K/cumm [facility] MPV 11.1 9.1 - 12.3 fL [facility] RBC 4.12(L) 4.30 - 5.80 M/cumm [facility] MCV 92.0 81.3 - 96.4 fL [facility] MCH 32.3 27.1 - 33.3 pg [facility] MCHC 35.1 32.3 - 35.7 g/dL [facility] RDW CV 11.7 11.1 - 14.9 % [facility] RDW SD 39.7 35.7 - 48.1 fL [facility] NRBC abs 0.00 0.00 - 0.01 K/cumm [facility] Blood 10/18/2021 4:03 AM PACKAGE REINSPECTOR 10/18/2021 4:09 AM PACKAGE REINSPECTOR Fransisco Heard MD LAB BLOOD ORDERABLES Final Result [facility] [address] [facility] [email or web address] [address] * (ABNORMAL) Basic metabolic panel (10/18/2021 4:03 AM PACKAGE REINSPECTOR) Pathologist [facility] Sodium 135 135 - 145 mmol/L [facility] Potassium, pl 4.2 3.3 - 4.9 mmol/L [facility] Chloride 100 97 - 110 mmol/L [facility] CO2 26 22 - 32 mmol/L [facility] Anion gap 9 2 - 15 mmol/L [facility] BUN 14 8 - 25 mg/dL [facility] Creatinine 0.70(L) 0.80 - 1.30 mg/dL [facility] Glucose 209(H) 70 - 199 mg/dL [facility] Comment: Interpretive Data Fasting glucose >/= [...] 2017. Calcium 8.8 8.5 - 10.3 mg/dL [facility] Blood 10/18/2021 4:03 AM PACKAGE REINSPECTOR 10/18/2021 4:09 AM PACKAGE REINSPECTOR Fransisco Heard MD LAB BLOOD ORDERABLES Final Result [facility] [address] [facility]. [place] [address] * XR Knee Left 1 or 2 View (10/17/2021 4:12 PM PACKAGE REINSPECTOR) Anatomical Region Laterality Modality Lower Extremities, Knee Left Computed Radiography 10/17/2021 4:16 PM PACKAGE REINSPECTOR Impressions 10/17/2021 4:16 PM PACKAGE REINSPECTOR 1. New two component left knee arthroplasty for osteoarthritis. Electronically signed by: Hood Kaur M.D. Narrative 10/17/2021 4:16 PM PACKAGE REINSPECTOR EXAMINATION: XR KNEE LEFT 1 OR 2 [...] hypertension Risk factors for obstructive sleep apnea documented in this encounter Admitting Diagnoses Diagnosis Primary osteoarthritis of left knee documented in this encounter Administered Medications Inactive Administered Medications - up to 3 most recent administrations Medication Order MAR Action Action Date Dose Rate Site acetaminophen (TYLENOL) tablet 1,000 mg 1,000 mg, oral, Every 6 hours scheduled, First dose on Sun10/17/21 at 1800, Indications: PainIndications:Pain Given 10/17/2021 11:33 PM PACKAGE REINSPECTOR 1,000 mg Given 10/17/2021 6:49 PM PACKAGE REINSPECTOR 1,000 mg acetaminophen (TYLENOL) tablet 650 mg 650 mg, oral, Once, On Sun10/17/21 at 1130, For 1 dose, Pre-Op, Indications: PainIndications:Pain Given 10/17/2021 11:26 AM PACKAGE REINSPECTOR 650 mg acyclovir (ZOVIRAX) capsule 400 mg 400 mg, oral, 2 times daily, First dose on Sun10/17/21 at 2100, Indications: Chronic SuppressionIndications:Chronic Suppression Given 10/18/2021 8:55 AM PACKAGE REINSPECTOR 4 00 mg Given 10/17/2021 8:06 PM PACKAGE REINSPECTOR 400 mg aspirin chewable tablet 81 mg 81 mg, oral, 2 times daily, First dose on Sun10/17/21 at 2100, Start first dose POD#0 at 2100, Indications: Deep Vein Thrombosis PreventionIndications:Deep Vein Thrombosis Prevention Given 10/18/2021 8:55 AM PACKAGE REINSPECTOR 81 mg Given 10/17/2021 8:06 PM PACKAGE REINSPECTOR 81 mg ceFAZolin (ANCEF) 2,000 mg/20 mL in sterile water (premix) 2,000 mg 2,000 mg, intravenous, at 400 mL/hr, Administer over 3 Minutes, Every 8 hours, First dose on Sun10/17/21 at 2200, For 2 doses, Beginning 8 hours after last ruben-operative dose., Indications: Prophylaxis, SurgicalIndications:Prophylaxis, Surgical Given 10/18/2021 6:09 AM PACKAGE REINSPECTOR 2,000 mg 400 mL/hr Given 10/17/2021 11:33 PM PACKAGE REINSPECTOR 2,000 mg 400 mL/hr celecoxib (CeleBREX) capsule 100 mg 100 mg, oral, 2 times daily, First dose on Sun10/18/21 at 0900, Please schedule to start morning POD#1, Indications: PainIndications:Pain Given 10/18/2021 8:55 AM PACKAGE REINSPECTOR 100 mg cholecalciferol (VITAMIN D-3) capsule 10,000 Units 10,000 Units, oral, Every morning, First dose on Sun10/18/21 at 0900, Indications: Vitamin D DeficiencyIndications:Vitamin D Deficiency Given 10/18/2021 8:57 AM PACKAGE REINSPECTOR 10,000 Units dilTIAZem XR (CARDIZEM CD,DILACOR XR) 24 hour capsule 240 mg 240 mg, oral, 2 times daily, First dose on Sun10/17/21 at 2100, Do not crush, chew, cut, dissolve, open or otherwise manipulate tablet/capsule., Indications: hypertensionIndications:hypertension Given 10/18/2021 8:55 AM PACKAGE REINSPECTOR 240 mg Given 10/17/2021 8:06 PM PACKAGE REINSPECTOR 240 mg famotidine (PEPCID) tablet 20 mg 20 mg, oral, 2 times daily, First dose on Sun10/17/21 at 2100, Indications: HeartburnIndications:Heartburn Given 10/18/2021 8:55 AM PACKAGE REINSPECTOR 20 mg Given 10/17/2021 8:06 PM PACKAGE REINSPECTOR 20 mg HYDROmorphone (DILAUDID) injection 0.2 mg [...] with Opioid Tolerance Given 10/17/2021 5:05 PM PACKAGE REINSPECTOR 0.2 mg Given 10/17/2021 4:33 PM PACKAGE REINSPECTOR 0.2 mg Given 10/17/2021 4:25 PM PACKAGE REINSPECTOR 0.2 mg irbesartan (AVAPRO) tablet 300 mg 300 mg, oral, Every morning, First dose on Sun10/18/21 at 0900, Indications: hypertensionIndications:hypertension Given 10/18/2021 8:57 AM PACKAGE REINSPECTOR 300 mg ketorolac (TORADOL) 15 mg/mL injection 15 mg 15 mg, intravenous, Every 6 hours, First dose on Sun10/17/21 at 2100, For 2 doses, For Adult IV push, administer over 15 seconds, Indications: PainIndications:Pain Given 10/18/2021 3:53 AM PACKAGE REINSPECTOR 15 mg Given 10/17/2021 8:06 PM PACKAGE REINSPECTOR 15 mg Lactated Ringer's (LR) bolus 1,000 mL 1,000 mL, intravenous, Once, On Sun10/17/21 at 1130, For 1 dose, Pre-Op New Bag 10/17/2021 11:25 AM PACKAGE REINSPECTOR 1,000 mL Lactated Ringer's (LR) bolus 1,000 mL 1,000 mL, intravenous, at 1,000 mL/hr, Administer over 1 Hours, Once, On Sun10/17/21 at 1630, For 1 dose, TO BE GIVEN IN PACU New Bag 10/17/2021 4:16 PM PACKAGE REINSPECTOR 1,000 mL 1000 mL/hr Lactated Ringer's (LR) infusion 30 mL/hr, intravenous, Continuous, Starting on Sun10/17/21 at 1130, For 4 hours, Pre-Op, Use a 500 ml bag for End Stage Renal Disease Patients. Discontinue if fluid still running once patient arrives to floor. New Bag 10/17/2021 3:40 PM PACKAGE REINSPECTOR 30 mL/hr New Bag 10/17/2021 2:10 PM PACKAGE REINSPECTOR 30 mL/hr Rate/Dose Verify 10/17/2021 1:36 PM PACKAGE REINSPECTOR 30 mL/h r loratadine (CLARITIN) tablet 10 mg 10 mg, oral, Every morning, First dose on Sun10/18/21 at 0900, Indications: Allergic RhinitisIndications:Allergic Rhinitis Given 10/18/2021 8:57 AM PACKAGE REINSPECTOR 10 mg mirabegron ER (MYRBETRIQ) extended release tablet 25 mg 25 mg, oral, Every morning, First dose on Sun10/18/21 at 0900, Do not crush, chew, cut, dissolve, open or otherwise manipulate tablet/capsule., Indications: Bladder HyperactivityIndications:Bladder Hyperactivity Given 10/18/2021 8:55 AM PACKAGE REINSPECTOR 25 mg ondansetron (ZOFRAN) injection 4 mg [...] interval., Indications: PainIndications:Pain Given 10/18/2021 6:09 AM PACKAGE REINSPECTOR 1 tablet polyvinyl alcohol-povidone (REFRESH CLASSIC) 1.4-0.6 % ophthalmic solution 1 drop 1 drop, each eye, Daily, First dose on Sun10/18/21 at 0900 Given 10/18/2021 8:57 AM PACKAGE REINSPECTOR 1 drop senna-docusate (PERICOLACE) 8.6-50 mg per tablet 2 tablet 2 tablet, oral, 2 times daily, First dose on Sun10/17/21 at 2100, Hold for diarrhea., Indications: constipationIndications:constipation Given 10/18/2021 8:54 AM PACKAGE REINSPECTOR 2 table ts Given 10/17/2021 8:06 PM PACKAGE REINSPECTOR 2 tablets sodium chloride 0.9% flush 0.5-20 mL 0.5-20 mL, intra-catheter, Every 8 hours scheduled, First dose on Sun10/17/21 at 2200, Flush volume based on line type and size. Given 10/18/2021 6:09 AM PACKAGE REINSPECTOR 5 mL Given 10/17/2021 11:33 PM PACKAGE REINSPECTOR 5 mL sodium chloride 0.9% infusion 100 mL/hr, intravenous, Continuous, Starting on Sun10/17/21 at 1815 New Bag 10/17/2021 6:31 PM PACKAGE REINSPECTOR 100 mL/hr 100 mL/hr documented in this [...] Recently Administered Medications Times are shown in PACKAGE REINSPECTOR. Scheduled Medication Order 10/16/2021 10/17/2021 10/18/2021 acetaminophen (TYLENOL) tablet 1,000 mg (CANCELED) 1,000 mg, oral, Every 6 hours scheduled, First dose on Sun10/17/21 at 1800, Indications: Pain 1849 (Given - Provider: Carey Marroquin RN)9573 (Given - Provider: Ky Pickens RN) 0609 (Not Given - Provider: Ky Pickens RN - Reason: Other - Comment: Patient receiving percocet. Do not want to double up on tylenol) acetaminophen (TYLENOL) tablet 650 mg (COMPLETED) 650 mg, oral, Once, On Sun10/17/21 at 1130, For 1 dose, Pre-Op, Indications: Pain 1126 (Given - Provider: Cindy Eagle RN) acyclovir (ZOVIRAX) capsule 400 mg 400 mg, [...] 0855 (Given - Provider: Latha Harris RN) ceFAZolin (ANCEF) 1 gram/10 mL in [...] Indications: Pain 0855 (Given - Provider: Latha Harris, NARENDRA) cholecalciferol (VITAMIN D-3) capsule 10,000 Units 10,000 Units, oral, Every morning, First dose on Sun10/18/21 at 0900, Indications: Vitamin D Deficiency 0857 (Given - Provider: Latha Harris, NARENDRA) dexAMETHasone (DECADRON) 4 mg/mL injection 8 mg [...] 0855 (Given - Provider: Latha Harris, NARENDRA) famotidine (PEPCID) tablet 20 mg 20 mg, oral, 2 times daily, First dose on Sun10/17/21 at 2100, Indications: Heartburn 2005 (Given - Provider: Ky Pickens RN) 0855 (Given - Provider: Latha Harris, NARENDRA) irbesartan (AVAPRO) tablet 300 mg 300 mg, oral, Every morning, First dose on Sun10/18/21 at 0900, Indications: hypertension 0857 (Given - Provider: Latha Harris, NARENDRA) ketorolac (TORADOL) 15 mg/mL injection 15 mg [...] PACU 1616 (New Bag - Provider: Cyndi Wyatt RN) loratadine (CLARITIN) tablet 10 mg 10 mg, oral, Every morning, First dose on Sun10/18/21 at 0900, Indications: Allergic Rhinitis 0857 (Given - Provider: Latha Harris RN) mirabegron ER (MYRBETRIQ) extended release tablet 25 mg 25 mg, oral, Every morning, First dose on Sun10/18/21 at 0900, Do not crush, chew, cut, dissolve, open or otherwise manipulate tablet/capsule., Indications: Bladder Hyperactivity 0855 (Given - Provider: Latha Harris RN) polyvinyl alcohol-povidone (REFRESH CLASSIC) 1.4-0.6 % ophthalmic solution 1 drop 1 drop, each eye, Daily, First dose on Sun10/18/21 at 0900 0857 (Given - Provider: Latha Harris RN) scopolamine patch 72 hour 1 patch [...] Pickens RN) 0854 (Given - Provider: Latha Harris RN) sodium chloride 0.9% flush 0.5-20 mL [...] administered by the anesthesia staff (Anesthesiologist or MOLDING CUTTER), Starting on Sun10/17/21 at 1048, For 1 [...] Cyndi Wyatt RN)1619 (Given - Provider: Cyndi Wyatt RN)1625 (Given - Provider: Cyndi Wyatt RN)1633 (Given - Provider: Cyndi Wyatt, NARENDRA)1705 (Given - Provider: Cyndi Wyatt RN) HYDROmorphone (DILAUDID) injection 0.2 mg 0.2 mg, [...] Date acetaminophen (TYLENOL) tablet 500 mg 1 bupivacaine 0.5%-EPINEPHrine 1:200,000 PF 60 mL and ketorolac 15 mg solution 1 10/17/2021 camphor-menthoL (SARNA) 0.5-0.5 % lotion 1 10/17/2021 ceFAZolin (ANCEF) 1 gram/10 mL in sterile water (premix) 2,000 mg 1 10/17/2021 ceFAZolin (ANCEF) 3,000 mg i n sodium chloride 0.9% 3,000 mL irrigation solution 1 10/17/2021 dexAMETHasone (DECADRON) 4 m g/mL [...] disintegrating tablet 4 mg 1 10/17/2021 peg 809-wgwneuvpjahd-kemvdkz n 1-0.36-0.2 % drops 1 drop 1 10/17/2021 polyethylene glycol (MIRALAX) packet 17 g 1 10/17/2021 povidone-iodine (BETADINE) 2 2.5 mL in sodium chloride 0.9% 250 mL irrigation 1 10/17/2021 prochlorperazine (COMPAZINE) injection 5 mg [...] 10/18/2021 documented in this encounter Care Teams Coffee Taster Relationship Specialty Start Date End Date Rl Medina DO [address] [place] [address] PCP - General 08/09/17 05/25/24 documented as of this encounter
--- OUTSIDE RECORDS SUMMARY | 2024-11-05 19:28 | XMS_ITS | Encounter Summary ---
Author Organization [facility] Healthcare Address [address] [place] [address] Care Team Providers Care Game Engineer Name Role Phone Rl Medina DO Primary Care Provider Reason for Referral * MRI/CAT/PET Scan (Routine) - Closed Specialty Diagnoses / Procedures Referred By Charlesac t Referred To Contact Radiology Diagnoses Primary osteoarthritis of left knee Procedures CT Knee Left WO Contrast Fransisco Heard MD [address] [address] Phone: tel: fax: [place] [address] [place] [address] Referral ID Status Reason Start Date Expiration Date Visits Re quested Visits Authorized [id number] Closed 08/09/2021 09/08/2022 1 1 EL KILN FIRER Reason for Visit * MRI/CAT/PET Scan (Routine) - Closed Specialty Diagnoses / Procedures Referred By Contac t Referred To Contact Radiology Diagnoses Primary osteoarthritis of left knee Procedures CT Knee Left WO Contrast Fransisco Heard MD [address] [address] Phone: tel: fax: [place] [address] [place] [address] Referral ID Status Reason Start Date Expiration Date Visits Re quested Visits Authorized [id number] Closed 08/09/2021 09/08/2022 1 1 Encounter Details Date Type Department Care Team (Latest Contact Info) Description 09/28/2021 10:27 AM TUNNEL KILN FIRER - 09/28/2021 11:59 PM TUNNEL KILN FIRER Hospital Encounter [facility] [address] [place] [address] Fransisco Heard MD [address] [place] [address] Primary osteoarthritis of left knee Discharge Disposition: Discharge to home or self [...] on file Legal Sex Male 9:07 PM TUNNEL KILN FIRER Gender Identity Not on file Sexual Orientation Not on file documented as of this encounter Medications at Time of Discharge acetaminophen (Tylenol Extra Strength) 500 mg tablet [...] 500 mg by mouth 08/27/2019 10/18/20 21 DILT-XR 240 mg 24 hr capsuleIndications [...] pain 56 tablet 10/17/2021 02/08/20 22 peg 173-axprsccfdpym-n lycerin 1-0.36-0.2 % dropsIndications:D ry Eye Administer [...] total) by mouth as needed 10/11/20 23 turmeric root extract 500 mg capsule Take by mouth every morning With tiffanie 10/18/20 21 ubidecarenone (COENZYME Q10 ORAL) Take 500 mg by mouth every morning 10/18/20 21 documented as of this encounter Discharge Disposition Disposition Code Departure Means Destination Discharge to home or self care documented in this encounter Plan of Treatment Not on file documented as of this encounter Procedures Procedure Name Priority Date/Time Associated Diagnosis Comments CT KNEE LEFT WO CONTRAST Schedule Routine, Read Routine (OP Routine) 09/28/2021 10:39 AM TUNNEL KILN FIRER Primary osteoarthritis of left knee documented in this encounter Results * CT Knee Left WO Contrast (09/28/2021 10:39 AM TUNNEL KILN FIRER) Anatomical Region Laterality Modality Lower Extremities Left Computed Tomog rodrigo 09/28/2021 11:5 7 AM TUNNEL KILN FIRER Impressions 09/28/2021 12:33 PM TUNNEL KILN FIRER 1. Severe medial compartment predominant tricompartmental left knee osteoarthritis. Dictated by: Gabriel Zhou M.D. The radiology attending physician has personally reviewed this study, and had reviewed and/or edited this written report and agrees with it. Electronically signed by: Jin Alonso M.D. Narrative 09/28/2021 12:33 PM TUNNEL KILN FIRER EXAMINATION: CT KNEE LEFT WO CONTRAST HISTORY: Left knee osteoarthritis. Left knee pain. TECHNIQUE: Transaxial computed tomographic imaging of the pelvis, left knee, and bilateral ankles was performed without intravenous contrast according to the custom [facility] protocol. FINDINGS: Surgical clips are present within [...] without intravenous contrast according to the custom [facility] protocol. FINDINGS: Surgical clips are present within [...] it. Electronically signed by: Jin Alonso M.D. Fransisco Heard MD IMG CT PROCEDURES Final Res ult documented in this encounter Visit Diagnoses Diagnosis Primary osteoarthritis of left knee documented in this encounter Care Teams Game Engineer Relationship Specialty Start Date End Date Rl Medina DO [address] [place] [address] PCP - General 08/09/17 05/25/24 documented as of this encounter
--- OUTSIDE RECORDS SUMMARY | 2024-11-05 19:28 | XMS_ITS | Encounter Summary ---
Author Organization [facility] Healthcare Address [address] [place] [address] Care Team Providers Care Jewelry Sales Coordinator Name Role Phone Rl Medina DO Primary Care Provider Encounter Details Date Type Department Care Team (Late st Contact Info) Description 10/15/2021 10:55 PM COMPUTER EQUIPMENT REPAIRER Lab [address] [address] Pre-procedure lab exam Social History Tobacco Use Types Packs/Day Years [...] on file Legal Sex Male 9:07 PM COMPUTER EQUIPMENT REPAIRER Gender Identity Not on file Sexual Orientation Not on file documented as of this encounter Plan of Treatment Not on file documented as of this encounter Procedures Procedure Name Priority Date/Time Associated Diagnosis Comments COVID-19 CORONAVIRUS RNA Routine 10/15/2021 2:05 PM COMPUTER EQUIPMENT REPAIRER Pre-procedure lab exam documented in this encounter Results * COVID-19 Coronavirus RNA Nasopharyngeal (10/15/2021 2:05 PM COMPUTER EQUIPMENT REPAIRER) COVID-19 RNA Not Detected LAURA ZARAGOZA Comment: Interpretive Data Synonyms for this test include: PCR and NAAT . ??Testing performed by the [facility] Molecular Infectious Disease Laboratory. The 2019-Novel Coronavirus Assay (COVID-19) Real Time RT-PCR assay is for in vitro diagnostic use under FDA emergency use authorization only. A negative RT-PCR result does not preclude infection with COVID-19 and should not be used as the sole basis for treatment or other patient management decisions. ??Additional sample types have been validated according to CLIA regulations. ?? Current Interpretive Data was last revised on December 09, 2020. First COVID-19 test? Yes LAURA ZARAGOZA Employeed in healthcare? No [facility] Group care resident? No [facility] Hospitalized? Unknown [facility] Is patient in ICU? Unknown [facility] Symptomatic as defined by CDC? No [facility] Nasopharyngeal 10/15/2021 2: 05 PM COMPUTER EQUIPMENT REPAIRER 10/15/2021 11:24 PM COMPUTER EQUIPMENT REPAIRER Narrative [facility] - 10/16/2021 7:53 PM COMPUTER EQUIPMENT REPAIRER What is the reason for testing?->Screening prior to scheduled procedure or surgery (batch) Fransisco Heard MD LAB MICROBIOLOGY - GENERAL ORDERABLES Final Result Performing Organization Address City/State/[facility] Co de Phone Number [facility] Department [place] [address] documented in this encounter Visit Diagnoses Diagnosis Pre-procedure lab exam Pre-procedural laboratory examination documented in this encounter Care Teams Jewelry Sales Coordinator Relationship Specialty Start Date End Date Rl Medina DO [address] [place] [address] PCP - General 08/09/17 05/25/24 documented as of this encounter
--- OUTSIDE RECORDS SUMMARY | 2024-11-05 19:28 | XMS_ITS | Encounter Summary ---
Author Organization [facility] Address [address] [place] [address] Phone Care Team Providers Care Geriatric Nurse Name Role Phone Rl Medina DO Primary Care Provider Reason for Visit * Reason Onset Date Comments TJA 09/27/2021 Encounter Details Date Type Department Care Team (Late st Contact Info) Description 09/27/2021 Documentation [facility] Orthopaedic Surgery [address] [place] [address] Medical Office Building [address] [place] [address] Karishma Escudero RN TJA Social History Tobacco Use Types Packs/Day Years [...] on file Legal Sex 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 (home) Procedure: L TKA OR Date: 10/17/21 OR Location: [facility] Joint Senior Maintenance Machinist Name: Neelima PCP: Rl Medina DO When was you last visit: Pre-Op Scheduling Anesthesia: Spinal Preferred Blood Requirements: T & S Consents: Surgery procedure consent obtained. Blood transfusion consent obtained. Preadmission Testing/Anesthesia H&P: Date: 09/27/21 Time: 11 Pre-Op Joint Class Scheduled for: Date: 10/07/21 Time: 1 pm PreHab Rx given to Patient: yes Faxed to: Pre-Op Meds/Anticoag: Instructed to stop primary prevention ASA/hormones/supplements 7 Days prior to surgery Instructed to stop NSAIDS 5 days prior to surgery Anticoagulation protocol discussed: yes ASA Decolonization Instructions: yes Skin preparations guide Mupirocin Rx Prescription for Celebrex 200mg The patient was given a TKA teaching packet including surgery guidelines with instructions, DECOL protocol instructions, instructions to stop all NSAID's, Blood thinners and aspirin products one weekbefore surgery, as well as office contacts to call if they have any additional questions prior to their surgery date. Current Outpatient Medications: ??? acetaminophen (Tylenol Extra Strength) 500 mg tablet, Take 500 mg by mouth every 6 hours as needed , Disp: , Rfl: ??? acyclovir (ZOVIRAX) 400 mg tablet, Take 400 mg by mouth 2 (two) times a day , Disp: , Rfl: 3 ??? celecoxib (CeleBREX) 100 mg capsule, TAKE 2 PILLS WITH BREAKFAST THE DAY BEFORE SX. TAKE 1 PILLBID FOR 4 DAYS AFTER DISCHARGE., Disp: 10 capsule, Rfl: 0 ??? cholecalciferol (VITAMIN D-3) 5,000 unit capsule, Take 10,000 Units by mouth every morning , Disp: , Rfl: ??? ciprofloxacin (CIPRO) 500 mg tablet, Take 500 mg by mouth , Disp: , Rfl: ??? DILT-XR 240 mg 24 hr capsule, Take 240 mg by mouth 2 (two) times a day , Disp: , Rfl: 0 ??? irbesartan (AVAPRO) 300 mg tablet, Take 300 mg by mouth every morning , Disp: , Rfl: ??? loratadine (CLARITIN) 10 mg tablet, Take 10 mg by mouth every morning (Patient not taking: Reported on 08/09/2021), Disp: , Rfl: ??? MYRBETRIQ 25 mg tablet extended release 24 hr, Take 25 mg by mouth every morning , Disp: , Rfl:6 ??? omeprazole (PriLOSEC) 20 mg capsule, Take 20 mg by mouth every morning , Disp: , Rfl: ??? peg 360-attlivqlgtii-uzsidbfw (Visine Tired Eye Relief) 1-0.36-0.2 % drops, Administer 1 drop into affected eye(s) once daily as needed, Disp: , Rfl: ??? polyethylene glycol (MIRALAX) 17 gram/dose powder, Take 17 g by mouth daily as needed , Disp: ,Rfl: ??? sildenafil, antihypertensive, (REVATIO) 20 mg tablet, Take 20 mg by mouth as needed , Disp: , Rfl: ??? turmeric root extract 500 mg capsule, Take by mouth every morning With tiffanie, Disp: , Rfl: ??? ubidecarenone (COENZYME Q10 ORAL), Take 500 mg by mouth every morning, Disp: , Rfl: He has No Known Allergies. Risk Assessment KYLE RISK: No STOP BANG Score: CMP(CO2): Sleep Study: CPAP/BIPAP: Bone Health screen - Vitamin D Level Ordered: Yes No Oral Health: Dental Clearance Indicated Smoking History: No Family History of DVT/PE: No He reports that he quit smoking about 41 years ago. His smoking use included cigarettes. He startedsmoking about 52 years ago. He smoked 1.00 pack per day. He has never used smokeless tobacco. He reports current alcohol use of about 14.0 standard drinks of alcohol per week. He reports that he doesnot use drugs. Audit-C Alcohol Screening How often do you have a drink containing alcohol?: 4 or more times a week How many standard drinks containing alcohol do you have on a typical day?: 1 or 2 drinks How often do you have six or more drinks on one occasion?: Never Audit-C Score: 4 Male: 4+ (POSITIVE) Female: Illegal Drug Use: Never Functional/Home Assessment deck hand assistance: Live in available day/night In a: Home Home Accessibility: Stairs Home Environment: Entry Steps: Yes: Number of Steps: 2 Bedroom Location: 1st Floor Bathroom Location:1st Floor What Medical Devices/Equipment used: Are you able to self-manage activities of daily living: ADL's: Bathing, Dressing, Self-feeding, Personal Hygiene and Toilet Hygiene IADL's: Housework, Medications, Managing Money, Shopping and Telephone Transportation: Self Pre-Op Ambulation: Independent Community distances Projected Post-Op Weight bearing: Full or WBAT Home Location: > 150 miles from [facility] or outside of service area should consider SNF or rehab* RAPT: What is your age group?: 66-75 Years Gender: Male How far on average can you walk? (a block is 200 meters): Two blocks or more (+/-rest) Which gait aid do you use most? (more often than not): None Do you use community supports? (home-help, meals on wheels, district nursing): None or one per week Will you live with someone who can care for you after your operation?: Yes RAPT Total Score: 11 (If <9 send to [facility]'s floor care team for review) (If <6 [...] implemented. Smoking (Tobacco Use): Current Smoker? No All tobacco users will be provided with smoking cessation resources and instructed to stop tobacco use a minimum of 1 month prior to surgery and 1 month after surgery. Obesity: What is the patient's BMI? BMI 30 - 35 Encourage enrollment in nutritional counseling program. Cardiovascular Disease: Patient has a history of Coronary Artery Disease (CAD), stroke, Peripheral Vascular Disease or VTED, is 60 years of age or older and has at least 2 cardiac risk factors: Yes All qualifying patients will require medical and/or cardiac clearance/and will be flagged for CPAP high risk screening/monitoring ruben-Operatively. Venous Thromboembolic Disease: Does the patient have [...] nonambulatory or needs assistance with transfer status? No Patient has comorbidities affecting physical function and ambulation? No Diabetes: Is the patient diabetic? No Last calculated Fasting Blood Glucose > 180 mg/dl? Last calculated Hgb A1c > 8? Is DM well controlled? RRAT Total Score: 2 Recommendations for Preoperative Care/Optimization: < 2 Proceed with Scheduling Surgery. Kathleen Lloyd RN N DEVELOPMENT PROFESSOR documented in this encounter Plan of Treatment Not on file documented as of this encounter Visit Diagnoses Not on filedocumented in this encounter Care Teams Geriatric Nurse Relationship Specialty Start Date End Date Rl Medina DO [address] [place] [address] PCP - General 08/09/17 05/25/24 documented as of this encounter
--- OUTSIDE RECORDS SUMMARY | 2024-11-05 19:28 | XMS_ITS | Encounter Summary ---
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
--- OUTSIDE RECORDS SUMMARY | 2024-11-05 19:28 | XMS_ITS | Encounter Summary ---
Author Organization [facility] Address [address] [place] [address] Phone Care Team Providers Care Ui Ux Engineer Name Role Phone Rl Medina DO Primary Care Provider Reason for Referral * Diagnostic Imaging (Routine) - Closed Specialty Diagnoses / Procedures Referred By Manisha gale Referred To Contact Diagnoses Status post left knee replacement Procedures XR Knee Left 1 or 2 Views Fransisco Heard MD [address] [facility] [address] [place] [address] Phone: tel: fax: [facility] Radiology [address] [facility] [address] [place] [phone] Phone: tel: Referral ID Status Reason Start Date Expiration Date Visits Re quested Visits Authorized [id number] Closed 12/22/2021 01/21/2023 1 1 AL SCIENCES INSTRUCTOR Reason for Visit * Reason Comments Pain * Consultation (Routine) - Closed Specialty Diagnoses / Procedures Referred By Manisha gale Referred To Contact Orthopedic Surgery Diagnoses Left knee pain, unspecified chronicity Rl Medina DO [address] [place] [address] Phone: tel: fax: [facility] (All Locations) Referral ID Status Reason Start Date Expiration Date V isits Requested Visits Authorized [id number] Closed Specialty Services Required 01/23/2022 02/22/2023 1 1 Encounter Details Date Type Department Care Team (Late st Contact Info) Description 02/07/2022 1:30 PM CDT Office Visit [facility] Orthopaedic Surgery [address] [facility] Medical Office Building [address] [place] [address] Fransisco Heard MD [address] [place] [address] Status post left knee replacement (Primary Dx); Left knee pain, unspecified chronicity Social History Tobacco Use Types Packs/Day Years Used Date Smoking Tobacco: Former Cigarettes 1 11 1 969 1979 Smokeless Tobacco: Never Alcohol Use Standard [...] on file Legal Sex Male 9:07 PM 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 PHYSICAL EXAM: Incision is well healed with no drainage. He has a normal gait with no limp. Range of motion is 0 to 115?? flexion, with excellent alignment. Stability is normal. he uses no assistive device Neurovascular status is intact. REVIEW OF XRAYS/STUDIES: Left Knee X-rays show excellent alignment and fixation MEDICATIONS: no script given in clinic today. TREATMENT PLAN: 1. The patient has been full weight bearing. 2. We will continue routine outpatient physical therapy prn protocol and order given. FOLLOW UP: He will return on an annual basis for routine follow up. Fransisco Heard M.D. Andi Rodrigues and Peyton Paula Professor of Orthopaedic Surgery documented in this encounter Plan of Treatment Not on file documented as of this encounter Results * XR Knee Left 1 or 2 Views (02/07/2022 1:09 PM CDT) Anatomical Region Laterality Modality Lower Extremities, Knee Left Computed Radiography 02/07/2022 1:30 PM CDT Impressions 02/07/2022 1:30 PM CDT 1. ??Unchanged 2 component left knee arthroplasty in near-anatomic position. Electronically signed by: Matthew Cheema MD Narrative 02/07/2022 1:30 PM CDT EXAMINATION: XR KNEE LEFT 1 OR 2 VIEWS HISTORY: ??Left knee arthroplasty FINDINGS: 2 radiographs of the lower extremities are submitted for interpretation with comparison 10/17/2021. There is an unchanged 2 component left knee arthroplasty in near-anatomic alignment. No acute periprosthetic fracture or osteolysis is identified. A revised right knee arthroplasty is also noted. Procedure Note Angelina Cheema MD - 02/07/2022 EXAMINATION: XR KNEE LEFT 1 OR 2 VIEWS HISTORY: Left knee arthroplasty FINDINGS: 2 radiographs of the lower extremities are submitted for interpretation with comparison 10/17/2021. There is an unchanged 2 component left knee arthroplasty in near-anatomic alignment. No acute periprosthetic fracture or osteolysis is identified. A revised right knee arthroplasty is also noted. IMPRESSION: 1. Unchanged 2 component left knee arthroplasty in near-anatomic position. Electronically signed by: Matthew Cheema MD Fransisco Heard MD IMG XR PROCEDURES Final Res ult documented in this encounter Visit Diagnoses Diagnosis Status post left knee replacement- Primary Left knee pain, unspecified chronicity Status post left knee replacement documented in this encounter Discontinued Medications Medication Sig Discontinue Reason Start Date End Da te oxyCODONE-acetaminoph en (PERCOCET) 5-325 mg per tabletIndications:Ludwig n Take 1-2 tablets by mouth every 4 (four) hours as needed for pain Therapy completed 10/17/2021 02/07/2022 senna-docusate (PERICOLACE) 8.6-50 mg Take 2 tablets by mouth 2 (two) times a day Therapy completed 10/18/2021 02/07/2022 celecoxib (CeleBREX) 100 mg capsuleIndications:Os teoarthritis,Postoper ative Acute Pain Take 1 tablet twice daily after surgery until prescription is finished. You should already have this prescription at home. Therapy completed 10/18/2021 02/07/2022 documented as of this encounter Orders Outpatient Referral Count Last Ordered Date Fir st Ordered Date AMB REFERRAL TO ORTHOPEDIC SURGERY 1 2021 documented in this encounter Care Teams Ui Ux Engineer Relationship Specialty Start Date End Date Rl Medina DO [address] [place] [address] PCP - General 08/09/17 05/25/24 documented as of this encounter
--- OUTSIDE RECORDS SUMMARY | 2024-11-05 19:28 | XMS_ITS | Encounter Summary ---
Author Organization [facility] Facility Care Team Providers Care Die Sinker Name Role Phone Rl Medina DO Primary Care Provider [phone] Encounter Details Date Type Department Care Team (Latest Contact Info) Description 01/14/2020 Travel Social History Tobacco Use Types Packs/Day Years Used Date Smoking Tobacco: Former Cigarettes 1 11 969 - 1979 Smokeless Tobacco: Never Alcohol Use Standard Drinks/Week Comments Yes 14 (1 standard drink = 0.6 oz pu re alcohol) social Sex and Gender Information Value Date Recorded Sex Assigned at Not on file Legal Sex Male 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
--- OUTSIDE RECORDS SUMMARY | 2024-11-05 19:28 | XMS_ITS | Encounter Summary ---
Author Organization [facility] Healthcare Address [address] [place] [address] Care Team Providers Care Cash Applications Analyst Name Role Phone Rl Medina DO Primary Care Provider Encounter Details Date Type Department Care Team (Latest Contact Info) Description 09/30/2019 10:12 AM SENIOR TECHNOLOGIST - 10/01/2019 12:51 PM SENIOR TECHNOLOGIST Hospital Encounter [facility] [address] [place] [address] Fransisco Heard MD [address] [facility] [address] [place] [address] Failure of total knee replacement, initial encounter ([facility]) (Primary Dx) Discharge Disposition: Discharge to home, [...] file Legal Sex Male 9:07 PM SENIOR TECHNOLOGIST Gender Identity Not on file Sexual Orientation Not on file documented as of this encounter Last Filed Vital Signs Vital Sign Reading Time Taken Comments Blood Pressure 130/75 10/01/2019 8:30 AM SENIOR TECHNOLOGIST Pulse 66 10/01/2019 8:30 AM SENIOR TECHNOLOGIST Temperature 36.6 ??C (97.9 ??F) 10/01/2019 7:09 AM CS T Respiratory Rate 18 10/01/2019 7:09 AM SENIOR TECHNOLOGIST Oxygen Saturation 97% 10/01/2019 8:30 AM SENIOR TECHNOLOGIST Inhaled Oxygen Concentration - - Weight 86.2 kg (190 lb) 09/30/2019 6:56 PM SENIOR TECHNOLOGIST Height 172.7 cm (5' 7.99 ) 09/30/2019 6:56 PM CS T Body Mass Index 28.9 09/30/2019 6:56 PM SENIOR TECHNOLOGIST documented in this encounter Discharge Diagnoses Diagnosis Other mechanical complication of internal right knee prosthesis, initial encounter ([facility]) - OTHER MECHANICAL COMPLICATION OF INTERNAL RIGHT KNEE PROSTHESIS, INITIAL ENCOUNTER Mechanical loosening of internal right knee prosthetic joint, initial encounter ([facility]) - MECHANICAL LOOSENING OF INTERNAL RIGHT KNEE PROSTHETIC JOINT, INITIAL ENCOUNTER Prosthetic and other implants, materials and accessory orthopedic devices associated with adverse incidents - PROSTHETIC AND OTHER IMPLANTS, MATERIALS AND ACCESSORY ORTHOPEDIC DEVICES ASSOCIATED WITH ADVERSE IN Unspecified place or not applicable - UNSPECIFIED PLACE OR NOT APPLICABLE Activity, unspecified - ACTIVITY, UNSPECIFIED Other external cause status - OTHER EXTERNAL CAUSE STATUS Obesity, unspecified - OBESITY, UNSPECIFIED Other chronic pain - OTHER CHRONIC PAIN Essential (primary) hypertension - ESSENTIAL (PRIMARY) HYPERTENSION Unspecified essential hypertension Gastro-esophageal reflux disease without esophagitis - GASTRO-ESOPHAGEAL REFLUX DISEASE WITHOUT ESOPHAGITIS Unilateral primary osteoarthritis, right knee - UNILATERAL PRIMARY OSTEOARTHRITIS, RIGHT KNEE nursing home (current) use of non-steroidal anti-inflammatories (nsaid) - CLUB MANAGER (CURRENT) USE OF NON-STEROIDAL ANTI-INFLAMMATORIES (NSAID) Other retirement (current) drug therapy - OTHER HALF-WAY (CURRENT) DRUG THERAPY Personal history of nicotine dependence - PERSONAL HISTORY OF NICOTINE DEPENDENCE Body mass index (bmi) 29.0-29.9, adult - BODY MASS INDEX (BMI) 29.0-29.9, ADULT documented in this encounter Discharge Summaries * Rebecca Hennessy NP - 10/01/2019 8:03 AM CST Inpatient Discharge Summary Admitting Provider: Fransisco Heard MD Discharge Provider: Fransisco Heard MD Primary Care Physician at Discharge: Rl Medina DO [phone] Admission Date: 09/30/2019 Discharge Date: 10/01/2019 Primary Discharge Diagnosis: No Principal Problem: There is no principal problem currently on the Problem List. Please update the Problem List and refresh. 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 Condition on Discharge: Stable Cosigned by Fransisco Heard MD at 10/06/2019 9:31 AM SENIOR TECHNOLOGIST OR TECHNOLOGIST OR TECHNOLOGIST documented in this encounter Medications at Time [...] Obtained From Patient Referral Data Referral Source Intake Coordinator Referral Reason Discharge Planning Prior to Admission Primary Caregiver Self Support System Spouse/Significant Other Support system contact info (name, phone, availablity) -Val [phone] Home Care Services Yes Type of Home Care Services Home therapies;Nurse visit Home care service name and phone number [facility] [phone] Durable Medical Equipment None Living Arrangements Spouse/significant [...] withthe patient. 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 Denies the use of home health in the past - a list will be provided if recommended. Patient chose [facility] to follow with RN and PT at discharge. Patient will also go home with ABF with [facility] and [facility] with a wheeled walker. labor relations manager to continue to follow for planning [...] with family support with PCP follow up OR TECHNOLOGIST * Moni Walker RN - 10/01/2019 12:51 PM CST 09/30/19 5576 Discharge Summary Chart reviewed For Medical Necessity Does patient have a planned readmission to hospital planned? No Discharge Disposition Home with Home Health (PT/OT/RN);Home with DME Equipment/Provider Needs Home Provider Services Needs Identified;Home Equipment Needs Identified Home Care Agency Information Home Care Agency Name [facility] Home Care Agency Contact Spoken to Maeve Home Care Agency Order Faxed to [phone] Home Equipment Information Home Equipment Provider Name [facility] Home Equipment Provider Equipment Ordered ACP Second Home Eqp Provider Used? [employer] Needed Home Equipment Information #2 Home Equipment Provider #2 Name [facility] Home Equipment Provider #2 Equipment Ordered from [facility] Wheeled walker Discharge Additional Assistance Does the patient need discharge transport arranged? No Post Discharge Care Provider Post Discharge Care Plan DC Summary has been faxed to next level of care provider (see Follow Up Providers) OR TECHNOLOGIST * Nichole Rico MD - 10/01/2019 7:02 [...] Nichole Rico MD Adult Reconstruction Fellow Pager: [phone] OR TECHNOLOGIST documented in this encounter H&P Notes * Nichole Rico MD - 09/30/2019 12:50 PM CST I have reviewed the H&P, examined the patient, and endorse the findings as written. Plan of Care : Based on the above findings, I consider Hira Evans to be an acceptable risk for : Procedure(s): REVISION ARTHROPLASTY TOTAL KNEE Cosigned by Fransisco Heard MD at 09/30/2019 1:40 PM SENIOR TECHNOLOGIST OR TECHNOLOGIST OR TECHNOLOGIST Source Note - Kasey Guerrero NP - 09/03/2019 2:55 PM CDT Images from the original note were not included. [facility] Pre[facility] Planning Preoperative Evaluation Record Evaluation type/location: [facility] Date: 09/03/19 Anesthesia Evaluation Hira Evans is [...] BP - 85 Pertinent negatives: CAD ; SD ; CABG ; valvular heart disease; valve [...] Right 2006 right flank ??? PROSTATECTOMY 2009 No Known Allergies Med List Status: Nurse Complete Set By: Jorge Jerome RN at 09/03/2019 2:51 PM Taking? Last Dose Start Date End Date Provider acetaminophen (TYLENOL) 500 mg tablet -- -- Historical Provider, acyclovir (ZOVIRAX) 400 mg tablet 06/08/19 -- Historical ProviderMD celecoxib (CeleBREX) 100 mg capsule 07/23/19 -- [...] - 10/01/2019 6:19 AM CST Rebecca Hennessy TERRAZZO LAYER HELPER notified RN emptied 400ml urine from urinal but pt stated he voided about 4 timesin the same urinal. 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 Post void residual was 967ml. Order to straight cath and to give urecholine. Will continue to monitor. OR TECHNOLOGIST documented in this encounter Miscellaneous Notes * Plan of Care - Joann Matthews, PT - 10/01/2019 11:25 AM CST Problem: Mobility Goal: STG - Patient will ambulate Description 100 ft With supervision WW Outcome: Completed Goal: STG - Patient will ambulate up and down a curb/step Description curb step With supervision WW Outcome: Completed Problem: PT Misc Goal: STG - Misc 1 Description Pt to perform TKA protocol without verbal cues. Outcome: Completed OR TECHNOLOGIST * Plan of Care - Divina Alaniz [...] be discharging after work with PT today. OR TECHNOLOGIST * Plan of Care - Aziza Batista [...] tonight, void. Summary: Patient progressing towards goals. OR TECHNOLOGIST * Plan of Care - Divina Alaniz RN - 09/30/2019 7:07 PM CST Problem: Health Behavior: Goal: Understanding of discharge needs will improve Outcome: Progressing Goals: Clinical Goals for the Shift: Pain control, OOB tonight, void. Summary: Patient is progressing towards goals. OR TECHNOLOGIST * Op Note - Fransisco Heard MD - 09/30/2019 2:41 PM CST OPERATIVE REPORT ATTENDING SURGEON: Fransisco Heard M.D. FIRST RUG CLEANING SUPERVISOR: Nichole Rico M.D. SECOND/THIRD RUG CLEANING SUPERVISOR: Tabitha Jones PREOPERATIVE DIAGNOSIS: Failed right total knee arthroplasty, instability POSTOPERATIVE DIAGNOSIS: Failed right total knee arthroplasty, instability PROCEDURE: Right revision total knee arthroplasty IMPLANTS: Acetone Recovery Worker: [employer]hew Brand: Legion Tibial component [...] complication, need for further surgery, DVT, PE, SD, stroke, and were discussed. After all questions [...] Rico was necessary for the procedure as sales office assistant, because total knee replacementis a difficult procedure, requiring at least two skilled and experienced surgeons. One surgeon was necessary to help maintain exposure and assist with the use of specific total knee replacement instrumentation, while the primary surgeon performed the procedure and no qualified resident was available. OR TECHNOLOGIST OR TECHNOLOGIST * Brief Op Note - Nichole Rico MD - 09/30/2019 2:41 PM SENIOR TECHNOLOGIST Operative Progress Note Surgical Team: Surgeon(s) and Role: * Fransisco Heard MD - Primary * Nichole Rico MD Anesthesiologist: Edmond Barker MD BONDING SUPERVISOR: Rafael Shaw III, CRNA; Mildred Harrison CRNA Utilization Management Rn: Giovana Masterson RN; Will Rodrigez RN Physician Vault Person: SREEDHAR Alcazar Scrub: Joann Hernandez RN; Grace [...] Implant Name Type Inv. Item Serial No. Acetone Recovery Worker Lot No. LRB No. Used [employer] 6197-9-010 SIMPLEX P FULL DOSE RADIOPAQUE PREBLEND CEMENT BONE TOBRAMYCIN - S0- [id number] Bone Cement [employer] 6197-9-010 Simplex P Full Dose Radiopaque Preblend Cement Bone Tobramycin 0 [employer] [id number] Right 2 [employer]PHEW[employer]RICHCO/ORTHO [id number] FRANCINE II 15MM CONSTRAIN KNEE 5-6 INSERT ARTICULAR UHMWPE - S0 - [id number] Other - see comments [employer]RICHCO/ORTHO [id number] Francine Ii 15mm Constrain Knee 5-6 Insert Articular Uhmwpe 0 [employer]Ortho [id number] Right 1 [employer]RICH[employer]ORTHO [id number] LEGION 10MM SCREW KNEE 6 WEDGE FEMORAL - S0 - [id number] Other - see comments [employer]RICHCO/ORTHO [id number] Legion 10mm Screw Knee 6 Wedge Femoral 0 [employer]/Rich[employer]/Ortho Right 1 [employer]RICHCO/ORTHO [id number] LEGION CONSTRAIN KNEE RIGHT 6 COMPONENT FEMORAL OXINIUM - S0 - [id number] Other - see comments [employer]RICHCO/ORTHO [id number] Legion Constrain Knee Right 6 Component Femoral Oxinium 0 [employer]/Rich[employer]/Ortho [id number] Right 1 [employer]RICHCO/ORTHO [id number] LEGION 5MM ALCON STEP KNEE RIGHT MEDIAL LEFT LATERAL 5-6 WEDGE - S0 - [id number] Other - see comments [employer]/RICHCO/ORTHO [id number] Legion 5mm Alcon Step Knee Right Medial Left Lateral 5-6 Wedge 0 [employer]hew/Richco/Ortho Right 1 [employer]RICHCO/ORTHO [id number] LEGION 15MM 160MM PRESS FIT KNEE STEM FEMORAL - S0 - [id number] Other - see comments [employer]RICHCO/ORTHO [id number] Legion 15mm 160mm Press Fit Knee Stem Femoral 0 [employer]hew/Richco/Ortho [id number] Right 1 [employer]RICHCO/ORTHO [id number] LEGION 10MM SCREW KNEE 6 WEDGE FEMORAL - S0 - [id number] Other - see comments [employer]/RICHCO/ORTHO [id number] Legion 10mm Screw Knee 6 Wedge Femoral 0 [employer]/Richco/Ortho [id number] Right 1 [employer]RICHCO/ORTHO [id number] LEGION REVISION KNEE RIGHT 5 BASEPLATE TIBIAL - S0 - [id number] Other - see comments [employer]RICHCO/ORTHO [id number] Legion Revision Knee Right 5 Baseplate Tibial 0 [employer]/Richco/Ortho [id number] Right 1 [employer]/RICHCO/ORTHO [id number] LEGION 15MM 160MM PRESS FIT KNEE STEM FEMORAL - S0 - [id number] Other - see comments [employer]PHEW/RICHCO/ORTHO [id number] Legion 15mm 160mm Press Fit Knee Stem Femoral 0 [employer]hew/Richco/Ortho [id number] Right 1 [employer] 6197-9-010 SIMPLEX P FULL DOSE RADIOPAQUE PREBLEND CEMENT BONE TOBRAMYCIN - [id number] [employer] 6197-9-010 Simplex P Full Dose Radiopaque Preblend Cement Bone Tobramycin [employer] Right 2 Blood/Blood Products Transfused: 0 mls Complications: None Condition on Discharge from the operating room was stable Nichole Rico MD Date: 09/30/2019 Time: 4:28 PM OR TECHNOLOGIST documented in this encounter Plan of Treatment Not on file documented as of this encounter Procedures Procedure Name Priority Date/Time Associated Diagnosis Comments CBC WITHOUT DIFFERENTIAL Routine 09/30/2019 9:35 PM SENIOR TECHNOLOGIST BASIC METABOLIC PANEL Routine 09/30/2019 9:35 PM SENIOR TECHNOLOGIST XR KNEE RIGHT 1 OR 2 VIEWS STAT 09/30/2019 6:07 PM SENIOR TECHNOLOGIST REVISION ARTHROPLASTY TOTAL KNEE 09/30/2019 1:57 PM SENIOR TECHNOLOGIST 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, subsequent encounter Special Needs Naima Multani TYPE AND SCREEN STAT 09/30/2019 12:00 PM SENIOR TECHNOLOGIST documented in this encounter Results * (ABNORMAL) CBC without differential (09/30/2019 9:35 PM SENIOR TECHNOLOGIST) [facility] WBC 8.5 3.8 - 9.9 K/cumm [facility] Hgb 13.9 13.0 - 17.5 g/dL [facility] Hct 40.3 38.9 - 50.3 % [facility] Plt 118(L) 150 - 400 K/cumm [facility] MPV 12.2 9.1 - 12.3 fL [facility] RBC 4.34 4.30 - 5.80 M/cumm [facility] MCV 92.9 81.3 - 96.4 fL [facility] MCH 32.0 27.1 - 33.3 pg [facility] MCHC 34.5 32.3 - 35.7 g/dL [facility] RDW CV 12.1 11.1 - 14.9 % [facility] RDW SD 42.2 35.7 - 48.1 fL [facility] NRBC abs 0.00 0.00 - 0.01 K/cumm [facility] Blood specimen (specimen) 09/30/2019 9:35 PM SENIOR TECHNOLOGIST 09/30/2019 10:52 PM SENIOR TECHNOLOGIST Nichole Rico MD LAB BLOOD ORDERABLES Final Result [facility] Department [place] [address] * (ABNORMAL) Basic metabolic panel (09/30/2019 9:35 PM SENIOR TECHNOLOGIST) [facility] Sodium 136 135 - 145 mmol/L [facility] Potassium, pl 4.0 3.3 - 4.9 mmol/L [facility] Chloride 101 97 - 110 mmol/L [facility] CO2 24 22 - 32 mmol/L [facility] Anion gap 11 2 - 15 mmol/L [facility] BUN 12 8 - 25 mg/dL [facility] Creatinine 0.74(L) 0.80 - 1.30 mg/dL [facility] Glucose 203(H) 70 - 199 mg/dL [facility] Comment: Interpretive Data Fasting glucose [...] 2017. Calcium 8.5 8.5 - 10.3 mg/dL [facility] Blood specimen (specimen) 09/30/2019 9:35 PM SENIOR TECHNOLOGIST 09/30/2019 10:52 PM SENIOR TECHNOLOGIST Nichole Rico MD LAB BLOOD ORDERABLES Final Result [facility] Department [place] [address] * XR Knee Right 1 or 2 View (09/30/2019 6:07 PM SENIOR TECHNOLOGIST) Anatomical Region Laterality Modality Lower Extremities, Knee Right Computed Radiography 10/01/2019 5:52 AM SENIOR TECHNOLOGIST Impressions 10/01/2019 5:52 AM SENIOR TECHNOLOGIST 1. ??Revision right total knee arthroplasty in near-anatomic position Electronically signed by: Oskar Ackerman MD, PHD Narrative 10/01/2019 5:52 AM SENIOR TECHNOLOGIST EXAMINATION: Right knee one or 2 views [...] * Type and screen (09/30/2019 12:00 PM SENIOR TECHNOLOGIST) ABO Rh O Positive [facility] Jigna, indirect Negative [facility] Blood specimen (specimen) 09/30/2019 12:00 PM SENIOR TECHNOLOGIST 09/30/2019 12:22 PM SENIOR TECHNOLOGIST Narrative [facility] - 09/30/2019 1:51 PM SENIOR TECHNOLOGIST Has the patient had Daratumumab (Darzalex) in the past 6 months?->No Carlos Manuel Good NP LAB BLOOD BANK TEST JOSE SONAL Final Result [facility] Department [place] [address] documented in this encounter Visit Diagnoses Diagnosis Failure of total knee replacement, initial encounter (HCC)- Primary 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 (CMS/HCC) ([facility]) documented in this encounter Admitting Diagnoses Diagnosis 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 Do not crush, chew, cut, dissolve, open or otherwise manipulate tablet/capsule., Indications: Deep Vein Thrombosis PreventionIndications:Deep Vein Thrombosis Prevention Given 10/01/2019 8:15 AM SENIOR TECHNOLOGIST 325 mg Given 09/30/2019 8:22 PM SENIOR TECHNOLOGIST 325 mg benzocaine-menthol (CHLORASEPTIC) lozenge 1 lozenge 1 lozenge, mouth/throat, Every 4 hours PRN, sore throat, Starting on Sun09/30/19 at 2140 Given 10/01/2019 8:17 AM SENIOR TECHNOLOGIST 1 lozenge Given 09/30/2019 10:28 PM SENIOR TECHNOLOGIST 1 lozenge bethanechol (URECHOLINE) tablet 25 mg 25 mg, oral, Every 1 hour, First dose (after last modification) on Sun10/01/19 at 0715, For 3 doses, Indications: Urinary RetentionIndications:Urinary Retention Given 10/01/2019 9:26 AM SENIOR TECHNOLOGIST 25 mg Given 10/01/2019 8:16 AM SENIOR TECHNOLOGIST 25 mg Given 10/01/2019 7:22 AM SENIOR TECHNOLOGIST 25 mg ceFAZolin (ANCEF) 2,000 mg/20 mL in sterile water (premix) 2,000 mg 2,000 mg, intravenous, at 400 mL/hr, Administer over 3 Minutes, Every 8 hours, First dose on Sun09/30/19 at 2200, For 2 doses, Beginning 8 hours after last ruben-operative dose., Indications: Prophylaxis, SurgicalIndications:Prophylaxis, Surgical New Bag 10/01/2019 6:01 AM SENIOR TECHNOLOGIST 2,000 mg 400 mL/hr New Bag 09/30/2019 10:29 PM SENIOR TECHNOLOGIST 2,000 mg 400 mL/hr celecoxib (CeleBREX) capsule 100 mg 100 mg, oral, 2 times daily, First dose on Sun09/30/19 at 2100, Please schedule to start morning POD#1, Indications: PainIndications:Pain Given 10/01/2019 8:16 AM SENIOR TECHNOLOGIST 100 mg dilTIAZem XR (CARDIZEM CD,DILACOR XR) 24 hour capsule 240 mg 240 mg, oral, 2 times daily, First dose on Sun09/30/19 at 2100, Do not crush, chew, cut, dissolve, open or otherwise manipulate tablet/capsule., Indications: hypertensionIndications:hypertension Given 10/01/2019 8:16 AM SENIOR TECHNOLOGIST 240 mg Given 09/30/2019 10:29 PM SENIOR TECHNOLOGIST 240 mg famotidine (PEPCID) tablet 20 mg 20 mg, oral, 2 times daily, First dose on Sun09/30/19 at 2100, Indications: HeartburnIndications:Heartburn Given 10/01/2019 8:16 AM SENIOR TECHNOLOGIST 20 mg HYDROmorphone (DILAUDID) injection 0.4 mg 0.4 mg, [...] and pain score 5/10 or more., Indications: PainIndications:Pain Given 09/30/2019 5:56 PM SENIOR TECHNOLOGIST 0.4 mg Given 09/30/2019 5:46 PM SENIOR TECHNOLOGIST 0.4 mg ketorolac (TORADOL) 15 mg/mL injection 15 mg 15 mg, intravenous, Every 6 hours, First dose on Sun09/30/19 at 1945, For 2 doses, For Adult IV push, administer over 15 seconds, Indications: PainIndications:Pain Given 10/01/2019 1:26 AM SENIOR TECHNOLOGIST 15 mg Given 09/30/2019 8:22 PM SENIOR TECHNOLOGIST 15 mg Lactated Ringer's (LR) bolus 1,000 mL 1,000 mL, intravenous, Once, On Sun09/30/19 at 1215, For 1 dose, Pre-Op New Bag 09/30/2019 12:02 PM SENIOR TECHNOLOGIST 1,000 mL Lactated Ringer's (LR) infusion 30 mL/hr, intravenous, Continuous, Starting on Sun09/30/19 at 1215, Pre-Op New Bag 09/30/2019 3:05 PM SENIOR TECHNOLOGIST Rate/Dose Verify 09/30/2019 1:57 PM SENIOR TECHNOLOGIST New Bag 09/30/2019 12:27 PM SENIOR TECHNOLOGIST 30 mL/hr 30 mL/hr losartan (COZAAR) tablet 100 mg 100 mg, oral, Every morning, First dose on Sun10/01/19 at 0900, Indications: hypertensionIndications:hypertension Given 10/01/2019 8:16 AM SENIOR TECHNOLOGIST 100 mg mirabegron ER (MYRBETRIQ) extended release tablet 25 mg 25 mg, oral, Every morning, First dose on Sun10/01/19 at 0900, Do not crush, chew, cut, dissolve, open or otherwise manipulate tablet/capsule., Indications: Bladder HyperactivityIndications:Bladder Hyperactivity Given 10/01/2019 8:16 AM SENIOR TECHNOLOGIST 25 mg oxyCODONE-acetaminophen (PERCOCET) 5-325 mg per tablet 1 tablet 1 tablet, oral, Every 4 hours PRN, 1st line for pain, Starting on Sun09/30/19 at 1902, May repeat in 1 hour if pain is uncontrolled or increasing. Max 2 doses within 1 dosing interval., Indications: PainIndications:Pain Given 10/01/2019 11:30 AM SENIOR TECHNOLOGIST 1 tablet Given 10/01/2019 6:01 AM SENIOR TECHNOLOGIST 1 tablet Given 09/30/2019 8:23 PM SENIOR TECHNOLOGIST 1 tablet senna-docusate (PERICOLACE) 8.6-50 mg per tablet 2 tablet 2 tablet, oral, 2 times daily, First dose on Sun09/30/19 at 2100, Hold for diarrhea., Indications: constipationIndications:constipation Given 10/01/2019 8:16 AM SENIOR TECHNOLOGIST 2 table ts Given 09/30/2019 8:22 PM SENIOR TECHNOLOGIST 2 tablets sodium chloride 0.9% flush 0.5-20 mL 0.5-20 mL, intra-catheter, Every 8 hours scheduled, First dose on Sun09/30/19 at 2200, Flush volume based on line type and size. Given 10/01/2019 6:01 AM SENIOR TECHNOLOGIST 10 mL Given 09/30/2019 8:23 PM SENIOR TECHNOLOGIST 10 mL sodium chloride 0.9% infusion 100 mL/hr, intravenous, Continuous, Starting on Sun09/30/19 at 1815, Phase I & Post-op Floor New Bag 09/30/2019 7:16 PM SENIOR TECHNOLOGIST 100 mL/hr 100 mL/hr documented in this [...] Recently Administered Medications Times are shown in SENIOR TECHNOLOGIST. Scheduled Medication Order 09/29/2019 09/30/2019 10/01/2019 acetaminophen (TYLENOL) tablet 650 mg (COMPLETED) 650 mg, oral, Once, On Sun09/30/19 at 1215, For 1 dose, Pre-Op, Indications: Pain 1201 (Given - Provider: Meryl Read, NARENDRA) aspirin enteric coated tablet 325 mg 325 [...] 721 (Given - Provid er: Aziza Batista RN)0816 (Given - Provider: Divina Alaniz RN)09 (Given - Provider: Divina Alaniz RN) ceFAZolin (ANCEF) 2,000 mg/20 mL in sterile water (premix) 2,000 mg (COMPLETED) 2,000 mg, intravenous, at 400 mL/hr, Administer over 3 Minutes, Every 8 hours, First dose on Sun09/30/19 at 2200, For 2 doses, Beginning 8 hours after last ruben-operative dose., Indications: Prophylaxis, Surgical 2228 (New Bag - Provider: Aziza Batista RN)2232 (Stopped - Provider: Aziza Batista RN) 0601 (New Bag - Provider: Aziza Batista RN) celecoxib (CeleBREX) capsule 100 mg 100 mg, oral, 2 times daily, First dose on Sun09/30/19 at 2100, Please schedule to start morning POD#1, Indications: Pain 1952 (Not Given - Provider: Aziza Batista RN [...] Indications: Pain 174 (Given - Provider: Adan Blunt, NARENDRA)1756 (Given - Provider: Adan Blunt, RN) oxyCODONE-acetaminophen (PERCOCET) 5-325 mg per tablet 1 tablet 1 tablet, oral, Every 4 hours PRN, 1st line for pain, Starting on Sun09/30/19 at 1902, May repeat in 1 hour if pain is uncontrolled or increasing. Max 2 doses within 1 dosing interval., Indications: Pain 2022 (Given - Provider: Aziza Batista, NARENDRA) 0601 (Given - Provider: Aziza Batista, NARENDRA)1130 (Given - Provider: Divina Alaniz, NARENDRA) polyethylene glycol (MIRALAX) packet 17 g [...] Ordered Date bethanechol (URECHOLINE) tablet 25 mg 1 bupivacaine-EPINEPHrine (MAR MARÍA with EPI) 60 mL, ketorolac (TORADOL) 30 mg solution 1 09/30/2019 camphor-menthol (SARNA) 0.5-0.5 % lotion 1 09/30/2019 ceFAZolin (ANCEF) 1,000 mg i n sodium chloride 0.9% 1,000 mL irrigation solution 1 09/30/2019 ceFAZolin (ANCEF) 2,000 mg/2 0 mL in sterile water (premix) 2,000 mg 1 09/30/2019 HYDROmorphone (DILAUDID) injection 0.2 mg 1 09/30/2019 naloxone (NARCAN) 0.4 mg/mL injection 0.04-0.4 mg 1 09/30/2019 ondansetron (ZOFRAN) injection 4 mg 1 09/30 polyethylene glycol (MIRALAX) packet 17 g 1 09/30/2019 sodium chloride 0.9% flush 0.5-20 mL 3 09/06 vancomycin (VANCOCIN) solution 1 09/30/2019 General Supply Count Last Ordered [...] 10/01/2019 documented in this encounter Care Teams Cash Applications Analyst Relationship Specialty Start Date End Date Rl Medina DO [address] [place] [address] PCP - General 08/09/17 05/25/24 documented as of this encounter
--- OUTSIDE RECORDS SUMMARY | 2024-11-05 19:28 | XMS_ITS | Encounter Summary ---
Author Organization [facility] Healthcare Address [address] [place] [address] Care Team Providers Care Inspector And Clerk Name Role Phone Rl Medina DO Primary Care Provider Reason for Referral * Diagnostic Imaging (Routine) - Closed Specialty Diagnoses / Procedures Referred By Contac t Referred To Contact Diagnoses Status post left knee replacement Procedures XR Knee Left 4 [place] [address] [place] [address] [address] [place] [address] Phone: tel: fax: [facility] Radiology [address] [place] [phone] Phone: tel: Referral ID Status Reason Start Date Expiration Date Visits Re quested Visits Authorized [id number] Closed 10/10/2022 11/09/2023 1 1 RY DRILL OPERATOR Reason for Visit * Diagnostic Imaging (Routine) - Closed Specialty Diagnoses / Procedures Referred By Contac t Referred To Contact Diagnoses Status post left knee replacement Procedures XR Knee Left 4 [place] [address] [place] [address] [address] [place] [address] Phone: tel: fax: [facility] Radiology [address] [place] [phone] Phone: tel: Referral ID Status Reason Start Date Expiration Date Visits Re quested Visits Authorized [id number] Closed 10/10/2022 11/09/2023 1 1 Encounter Details Date Type Department Care Team (Latest Contact Info) Description 10/17/2022 11:19 AM ROTARY DRILL OPERATOR - 10/17/2022 11:59 PM ROTARY DRILL OPERATOR Hospital Encounter [id number] [address] [facility] [address] [place] [address] Status post left knee replacement Discharge Disposition: Discharge to home or self [...] on file Legal Sex Male 9:07 PM ROTARY DRILL OPERATOR Gender Identity Not on file Sexual [...] a day 60 tablet 10/18/2021 10/25/20 22 cephalexin (KEFLEX) 500 mg capsule Take 1 [...] mellitus 0.5 mg Sunday09/21/2022 09/13/20 23 peg 023-byiienctjgxe-c lycerin 1-0.36-0.2 % dropsIndications:D ry Eye Administer [...] Priority Date/Time Associated Diagnosis Comments XR KNEE LEFT 4 OR MORE VIEWS Schedule Routine, Read Routine (OP Routine) 10/17/2022 11:59 AM ROTARY DRILL OPERATOR Status post left knee replacement documented in this encounter Results * XR Knee Left 4 or More Views (10/17/2022 11:59 AM ROTARY DRILL OPERATOR) Anatomical Region Laterality Modality Lower Extremities, Knee Left Computed Radiography 10/17/2022 1:13 PM ROTARY DRILL OPERATOR Impressions 10/17/2022 1:13 PM ROTARY DRILL OPERATOR Unchanged 2 component left knee arthroplasty in near-anatomic alignment. Electronically signed by: Timbo Wilcox MD [facility] 10/17/2022 1:13 PM ROTARY DRILL OPERATOR EXAMINATION: XR KNEE LEFT 4 OR MORE [...] Visit Diagnoses Diagnosis Status post left knee replacement documented in this encounter Care Teams Inspector And Clerk Relationship Specialty Start Date End Date Rl Medina DO [address] [place] [address] PCP - General 08/09/17 05/25/24 documented as of this encounter
--- OUTSIDE RECORDS SUMMARY | 2024-11-05 19:28 | XMS_ITS | Encounter Summary ---
Author Organization [facility] Address [address] [place] [address] Phone Care Team Providers Care Electrical Experimental Mechanic Name Role Phone Rl Medina DO Primary Care Provider Encounter Details Date Type Department Care Team (Late st Contact Info) Description 10/06/2019 Telephone [facility] Orthopaedic Surgery [address] [place] [address] [place] [phone] Fransisco Heard MD [address] 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 Heard. Pt aware of the results. OR ELECTRICAL ENGINEER documented in this encounter Plan of Treatment Not on file documented as of this encounter Visit Diagnoses Not on filedocumented in this encounter Care Teams Electrical Experimental Mechanic Relationship Specialty Start Date End Date Rl Medina DO [address] [place] [address] PCP - General 08/09/17 05/25/24 documented as of this encounter
--- OUTSIDE RECORDS SUMMARY | 2024-11-05 19:28 | XMS_ITS | Encounter Summary ---
Author Organization [facility] Address [address] [place] [address] Phone Care Team Providers Care Athletic Coach Name Role Phone Rl Medina DO Primary Care Provider Reason for Visit * Reason Comments Post-op Encounter Details Date Type Department Care Team (Late st Contact Info) Description 11/08/2021 11:45 AM TYPE COPYIST Office Visit [facility] Orthopaedic Surgery [facility] Medical Office Building [address] [place] [address] Fransisco Heard MD [address] [facility] [address] [place] [address] Status post left knee replacement (Primary Dx) [...] on file Legal Sex Male 9:07 PM TYPE COPYIST Gender Identity Not on file Sexual Orientation Not on file documented as of this encounter Progress Notes * Fransisco Heard MD - 11/08/2021 11:45 AM CST POST-OPERATIVE VISIT INTERIM HISTORY: Hira [...] Fransisco Heard M.D. Andi Rodrigues and Peyton Thompson Distinguished Professor of Orthopaedic Surgery COPYIST documented in this encounter Plan of Treatment Not on file documented as of this encounter Visit Diagnoses Diagnosis Status post left knee replacement- Primary documented in this encounter Care Teams Athletic Coach Relationship Specialty Start Date End Date Rl Medina DO [address] [place] [address] PCP - General 08/09/17 05/25/24 documented as of this encounter
--- OUTSIDE RECORDS SUMMARY | 2024-11-05 19:28 | XMS_ITS | Encounter Summary ---
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
--- OUTSIDE RECORDS SUMMARY | 2024-11-05 19:28 | XMS_ITS | Encounter Summary ---
Author Organization [facility] Healthcare Address [address] [place] [address] Care Team Providers Care Radar Repairer Name Role Phone Rl Medina DO Primary Care Provider Encounter Details Date Type Department Care Team (Late st Contact Info) Description 09/28/2021 11:50 AM PEDIATRIC SPEECH LANGUAGE PATHOLOGIST Lab [facility] [address] [place] [address] Preop testing; Primary osteoarthritis of left knee Social History Tobacco Use Types Packs/Day Years Used Date Smoking Tobacco: Former Cigarettes 1 1979 Smokeless Tobacco: Never Alcohol Use Standard [...] on file Legal Sex Male 9:07 PM PEDIATRIC SPEECH LANGUAGE PATHOLOGIST Gender Identity Not on file Sexual Orientation Not on file documented as of this encounter Plan of Treatment Not on file documented as of this encounter Procedures Procedure Name Priority Date/Time Associated Diagnosis Comments EGFR Routine 09/28/2021 11:56 AM PEDIATRIC SPEECH LANGUAGE PATHOLOGIST Primary osteoarthritis of left knee DIFFERENTIAL AUTO Routine 09/28/2021 11: 56 AM PEDIATRIC SPEECH LANGUAGE PATHOLOGIST Primary osteoarthritis of left knee CBC WITH AUTO DIFFERENTIAL Routine 09/28/2021 11:56 AM PEDIATRIC SPEECH LANGUAGE PATHOLOGIST Primary osteoarthritis of left knee VITAMIN D 25 HYDROXY Routine 09/28/2021 11:56 AM PEDIATRIC SPEECH LANGUAGE PATHOLOGIST Primary osteoarthritis of left knee COMPREHENSIVE METABOLIC PANEL Routine 09/28/2021 11:56 AM PEDIATRIC SPEECH LANGUAGE PATHOLOGIST Primary osteoarthritis of left knee URINALYSIS AND REFLEX TO MICROSCOPIC AND CULTURE Routine 09/28/2021 11:49 AM PEDIATRIC SPEECH LANGUAGE PATHOLOGIST Preop testing URINALYSIS, MICROSCOPIC ONLY Routine 09/28/2021 11:49 AM PEDIATRIC SPEECH LANGUAGE PATHOLOGIST Preop testing documented in this encounter Results * eGFR (09/28/2021 11:56 AM PEDIATRIC SPEECH LANGUAGE PATHOLOGIST) Pathologist [facility] eGFR 90 mL/min/1.7 3 m2 LAURA ESPINOZA Comment: Interpretive Data Reference Interval Normal ?>/= 90 mL/min/1.73m2 Mildly decreased* ? 60 - 89 mL/min/1.73m2 Mildly to moderately decreased ?45 - 59 mL/min/1.73m2 Moderately to severely decreased ??30 - 44 mL/min/1.73m2 Severely decreased ?15 - 29 mL/min/1.73m2 Kidney Failure ?< 15 ??mL/min/1.73m2 *Relative to young adult level Estimated glomerular filtration rate is determined by the CKD-EPI equation recommended by the National Kidney Foundation (KDIGO 2012 Clinical Practice Guideline for the Evaluation and Management of Chronic Kidney Disease. Kidney Intnl Suppl Nov 2012;3:1). The CKD-EPI equation should not be used for patients with unstable renal function and has not been validated in children and those over 70. Current interpretive data was last reviewed 2020 Blood 09/28/2021 11:5 6 AM PEDIATRIC SPEECH LANGUAGE PATHOLOGIST 09/28/2021 12:07 PM PEDIATRIC SPEECH LANGUAGE PATHOLOGIST us Fransisco Heard MD LAB BLOOD ORDERABLES Final Result [facility] [address] [facility]. Department [place] [address] * Differential, auto (09/28/2021 11:56 AM PEDIATRIC SPEECH LANGUAGE PATHOLOGIST) Neutrophil abs 2.5 1.7 - 6.5 K/cumm [facility] Imm gran abs 0.0 0.0 - 0.1 K/cumm [facility] Lymphocyte abs 1.6 0.8 - 3.3 K/cumm [facility] Monocyte abs 0.4 0.2 - 0.8 K/cumm [facility] Eosinophil abs 0.1 0.0 - 0.5 K/cumm [facility] Basophil abs 0.0 0.0 - 0.1 K/cumm [facility] Neutrophil pct 54.8 % [facility] Comment: Interpretive Data Percent cell count reference ranges are not reported, since discordance with absolute values may lead to misinterpretation of CBC data. Current Interpretive Data was last revised on 2018. Imm gran pct 0.2 % [facility] Comment: Interpretive Data Percent cell count reference ranges are not reported, since discordance with absolute values may lead to misinterpretation of CBC data. Current Interpretive Data was last revised on 2018. Lymphocyte pct 33.8 % [facility] Comment: Interpretive Data Percent cell count reference ranges are not reported, since discordance with absolute values may lead to misinterpretation of CBC data. Current Interpretive Data was last revised on 2018. Monocyte pct 8.7 % [facility] Comment: Interpretive Data Percent cell count reference ranges are not reported, since discordance with absolute values may lead to misinterpretation of CBC data. Current Interpretive Data was last revised on 2018. Eosinophil pct 1.9 % [facility] Comment: Interpretive Data Percent cell count reference ranges are not reported, since discordance with absolute values may lead to misinterpretation of CBC data. Current Interpretive Data was last revised on 2018. Basophil pct 0.6 % [facility] Comment: Interpretive Data Percent cell count reference ranges are not reported, since discordance with absolute values may lead to misinterpretation of CBC data. Current Interpretive Data was last revised on 2018. Blood 09/28/2021 11:5 6 AM PEDIATRIC SPEECH LANGUAGE PATHOLOGIST 09/28/2021 12:07 PM PEDIATRIC SPEECH LANGUAGE PATHOLOGIST us Fransisco Heard MD LAB BLOOD ORDERABLES Final Result [facility] [address] [facility]. Department [place] [address] * Comprehensive metabolic panel (09/28/2021 11:56 AM PEDIATRIC SPEECH LANGUAGE PATHOLOGIST) Sodium 138 135 - 145 mmol/L [facility] Potassium, pl 4.0 3.3 - 4.9 mmol/L [facility] Chloride 103 97 - 110 mmol/L [facility] CO2 26 22 - 32 mmol/L [facility] Anion gap 9 2 - 15 mmol/L [facility] BUN 18 8 - 25 mg/dL [facility] Creatinine 0.82 0.80 - 1.30 mg/dL [facility] Glucose 106 70 - 199 mg/dL [facility] Comment: Interpretive Data Fasting glucose >/= 126 [...] interpretive data was last revised 2017. Calcium 9.5 8.5 - 10.3 mg/dL [facility] Bilirubin, total 0.8 0.1 - 1.2 mg/dL [facility] Protein, pl 6.7 6.5 - 8.5 g/dL [facility] Albumin 4.6 3.5 - 5.0 g/dL [facility] Alk phos 63 40 - 130 Units/L [facility] ALT 19 7 - 55 Units/L [facility] AST 22 10 - 50 Units/L [facility] Blood 09/28/2021 11:5 6 AM PEDIATRIC SPEECH LANGUAGE PATHOLOGIST 09/28/2021 12:07 PM PEDIATRIC SPEECH LANGUAGE PATHOLOGIST Fransisco Heard MD LAB BLOOD ORDERABLES Final Result Performing Organization Address City/[facility]/ZIP Co de Phone Number [facility] [address] [facility] [address] [place], [place] [id number] * (ABNORMAL) Vitamin D 25 hydroxy (09/28/2021 11:56 AM PEDIATRIC SPEECH LANGUAGE PATHOLOGIST) Pathologist [facility] Vitamin D 25-OH 92(H) 30 - 80 ng/mL [facility] Comment:Testing performed by : [facility], [address] [place]., [address] Blood 09/28/2021 11:5 6 AM PEDIATRIC SPEECH LANGUAGE PATHOLOGIST 09/28/2021 2:31 PM PEDIATRIC SPEECH LANGUAGE PATHOLOGIST Fransisco Heard MD LAB BLOOD ORDERABLES Final Result [facility]A ZARAGOZACH [address] [facility] [address] [place], [place] [id number] * (ABNORMAL) CBC with auto differential (09/28/2021 11:56 AM PEDIATRIC SPEECH LANGUAGE PATHOLOGIST) WBC 4.6 3.8 - 9.9 K/cumm [facility] Hgb 14.4 13.0 - 17.5 g/dL [facility] Hct 42.8 38.9 - 50.3 % [facility] Plt 132(L) 150 - 400 K/cumm [facility] MPV 11.5 9.1 - 12.[address] [facility] RBC 4.53 4.30 - 5.80 M/cumm [facility] MCV 94.5 81.3 - 96.[address] [facility] MCH 31.8 27.1 - 33.[address] [facility] MCHC 33.6 32.3 - 35.7 g/dL [facility] RDW CV 12.3 11.1 - 14.9 % [facility] RDW SD 43.1 35.7 - 48.[address] [facility] NRBC abs 0.00 0.00 - 0.01 K/cumm [facility] Blood 09/28/2021 11:5 6 AM PEDIATRIC SPEECH LANGUAGE PATHOLOGIST 09/28/2021 12:07 PM PEDIATRIC SPEECH LANGUAGE PATHOLOGIST us Fransisco Heard MD LAB BLOOD ORDERABLES Final Result Performing Organization Address [facility] de Phone Number [facility] [address] [employer]. [facility] [place] [address] * (ABNORMAL) Urinalysis, microscopic only (09/28/2021 11:49 AM PEDIATRIC SPEECH LANGUAGE PATHOLOGIST) WBC, ur 0-5 0 - 5 /HPF [facility] RBC, ur 0-2 0 - 2 /HPF [facility] Epithelial cells, squamous, ur 1-5 0 - 5 /HPF [facility] Mucous, ur Present(A) [facility] Culture Reflex Comment Reflex conditions for urine culture (WBC >10) not met. [facility] Urine, clean voided 09/28/2021 11:49 AM PEDIATRIC SPEECH LANGUAGE PATHOLOGIST 09/28/2021 12:07 PM PEDIATRIC SPEECH LANGUAGE PATHOLOGIST Narrative [facility] - 09/28/2021 12:31 PM PEDIATRIC SPEECH LANGUAGE PATHOLOGIST UA Micro Reflexed Galina Ladd MILL HELPER LAB URINE ORDERABLES Fi nal Result Performing Organization Address [facility] Co de Phone Number [facility] [address] [employer]. [facility] [place] [address] * (ABNORMAL) Urinalysis reflex to microscopic and culture Urine, clean voided (09/28/2021 11:49 AM PEDIATRIC SPEECH LANGUAGE PATHOLOGIST) Color, ur Yellow Yellow [facility] Clarity, ur Clear Clear [facility] Specific gravity, ur 1.024 1.003 - 1.030 [facility] pH, urine 7.0 [facility] Protein, ur ql 1+(A) Negative [facility] Glucose, ur ql Negative Negative [facility] Ketones, ur Negative Negative [facility] Bilirubin, ur Negative Negative [facility] Blood, ur Negative Negative [facility] Urobilinogen, ur <2.0 <2.0 mg/dL [facility] Nitrite, ur Negative Negative [facility] Leukocyte esterase, ur Negative Negative [facility] UA reflex comment Reflex to microscopic UA will be performed. [facility] Urine, clean voided 09/28/2021 11:49 AM PEDIATRIC SPEECH LANGUAGE PATHOLOGIST 09/28/2021 12:07 PM PEDIATRIC SPEECH LANGUAGE PATHOLOGIST Narrative [facility] - 09/28/2021 12:30 PM PEDIATRIC SPEECH LANGUAGE PATHOLOGIST ?? Urine pH is affected by diet, medications, systemic acid-base disturbances, and renal tubular function. ??pH may affect urinary stone formation. ??For example, urine pH below 6.0 may help reduce the tendency for calcium phosphate stones and pH greater than 6.0 may reduce the tendency for uric acid stone formation. Source: [facility]. Last revised 11-15-2017 Galina Ladd NP LAB MICROBIOLOGY - GENE RAL ORDERABLES Final Result [facility] [address] [facility] Department [place] [address] documented in this encounter Visit Diagnoses Diagnosis Preop testing Unspecified pre-operative examination Primary osteoarthritis of left knee documented in this encounter Care Teams Radar Repairer Relationship Specialty Start Date End Date Rl Medina DO [address] [place] [address] PCP - General 08/09/17 05/25/24 documented as of this encounter
--- OUTSIDE RECORDS SUMMARY | 2024-11-05 19:28 | XMS_ITS | Encounter Summary ---
Author Organization [facility] Healthcare Address [address] [place] [address] Care Team Providers Care Risk Compliance Analyst Name Role Phone Rl Medina DO Primary Care Provider [phone] Encounter Details Date Type Department Care Team (Late st Contact Info) Description 09/30/2019 1:57 PM HELP DESK TEAM LEADER Anesthesia Event [facility] Operating Room [address] [facility] [place] [address] Edmond Barker MD [address] [address] [place] [address] Sydney Aburto NP [address] [facility] [address] [place] [address] Anesthesia Record Procedure Summary Procedure Name Responsible Anesthesiologist Anesthesia Start Time Anesthesia Stop Time REVISION ARTHROPLASTY TOTAL KNEE (Right: Knee) Edmond Barker MD 09/30/19 1357 09/30/19 1645 Events Date Time Event Comment 09/30/2019 1236 1357 In Room 1357 An Start 1357 An Start Data 1405 An Induction The patient was reevaluated immediately before moderate or deep sedation use and before anesthesia induction. 1407 An Intubation 1419 Anesthesia Ready 1440 Proc Start 1441 Incision Start 1635 An Extubation 1635 an stop data 1635 Proc Fin 1636 Out of Room 1644 Handoff to RN I completed my handoff [...] the time of handoff: No value filed. 1645 An Stop Meds Name Total midazolam PF 2 mg lidocaine 1 % PF 60 mg fentaNYL 100 mcg propofol 400 mg succinylcholine 80 mg HYDROmorphone 2 mg/mL 1 mg ondansetron PF (ZOFRAN) 2 mg/mL injectio n 4 mg ondansetron PF (ZOFRAN) 2 mg/mL injectio n 4 mg glycopyrrolate 0.6 mg neostigmine injection 1 mg/mL 3 mg vecuronium 7 mg ceFAZolin 2,000 mg tranexamic acid 1,000 mg dexmedetomidine vial 4 mcg/mL 24 mcg dexamethasone 4 mg/ml 4 mg famotidine PF 20 mg Lactated Ringer's (LR) infusion 1,200 mL * Agents Name O2% N2O O2 Air Sevoflurane Desflurane Inspired Desflurane Inspired Sevoflurane * Blood No blood administrations on file. Lines, Drains, and Airways Type Details Placement Removal Peripheral IV Placement Date: 09/30/19; Placement Time: 1201; Catheter Size: 18 G; Orientation: Left; Location: Hand; Site Prep: Chlorhexidine; Insertion Attempts: 1; Patient Tolerance: Tolerated well; Removal Date: 10/01/19; Removal Time: 1120 09/30/19 1201 by Meryl Read RN 10/01/19 1120 by Divina Alaniz NP ETT Placement Date: 09/30/19; Placement Time: 1419 (created via procedure documentation); Mask Ventilation: 1; Technique: Direct laryngoscopy; Type: ETT - single; Single Lumen Tube Size: 8 mm; Cuffed: Yes; Laryngoscope: Bennett; Blade Size: 4; Location: Oral; Grade View: Grade IIa; Insertion Attempts: 1; Placement Verification: Auscultation; Removal Date: 09/30/19; Removal Time: 1635 09/30/19 1419 by Rafael Shaw III, CRNA 09/30/19 1635 by Mildred Harrison CRNA Urethral Catheter Placement Date: 09/30/19; Placement Time: 142; Inserted by: Kalie; Type: Non-latex, Temperature probe; Size: 16 Fr.; Balloon Size: 10 mL; Urine Returned: Yes; Removal Date: 09/30/19; Removal Time: 2257; Removal Reason: Per order 09/30/19 1420 by Will Rodrigez RN [id number]/30/[id number] by Aziza Batista, NARENDRA RETIRED Surgical Site 09/30/19; 1612; Ri ght; Knee; closed surgical wound; 10/17/21; 1124; Not present on admission 09/30/19 1612 by Will Rodrigez RN 10/17/21 1124 by Cindy Eagle RN documented in this encounter Social History Tobacco Use Types Packs/Day Years Used Date Smoking Tobacco: Former Cigarettes 1 1979 Smokeless Tobacco: Never Alcohol Use Standard Drinks/Week Comments Yes 14 (1 standard drink = 0.6 oz pu re alcohol) social Sex and Gender Information Value Date Recorded Sex Assigned at Not on file 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 Gender Identity Not on file Sexual Orientation Not on file documented as of this encounter OR Notes * Anesthesia Postprocedure Evaluation - To Peguero MD PhD - 09/30/2019 4:56 PM CST Patient: Hira Evans Procedure Summary Date: 09/30/19 Room / Location: [facility] OR POD 2 ROOM 207 / [facility] OR POD 2 Anesthesia Start: 1357 Anesthesia Stop: 1645 Procedure: REVISION ARTHROPLASTY TOTAL KNEE (Right Knee) Diagnosis: 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, subsequent encounter (Presence of right artificial knee joint [Z96.651]) (Failure of total knee replacement, subsequent encounter [T84.018D, Z96.659]) Surgeon: Fransisco Heard MD Responsible Provider: Edmond Barker MD Anesthesia Type: general ASA Status: 2 Anesthesia Type: general Last vitals BP 156/78 (BP Location: Right arm) Pulse 72 Temp 36.2 ??C (97.2 ??F) (Temporal) Resp 12 SpO2 94% Anesthesia Post Evaluation Patient location during evaluation: PACU Patient participation: complete - patient participated Level of consciousness: fully awake and follows simple commands Pain management: adequate Airway patency: adequate Evidence of recall: no Anesthetic complications: no Cardiovascular status: hemodynamically stable Respiratory status: room air and acceptable Hydration status: acceptable Pt is: normothermic Nausea/Vomiting status: none Patient to be transferred to floor. Cosigned by Edmond Barker MD at 09/30/2019 5:33 PM HELP DESK TEAM LEADER DESK TEAM LEADER DESK TEAM LEADER DESK TEAM LEADER * Anesthesia Procedure Notes - Rafael Shaw III, CRNA - 09/30/2019 2:19 PM CSTAssociated Order(s): Airway Airway Patient location: OR Urgency: elective Indications for airway management: anesthesia Difficult airway: no Staff: Placed by: CARTOGRAPHY PROFESSOR: Rafael Shaw III, CRNA Emergent airway documentation: Risks and benefits discussed: yes Consent obtained: yes Consent given by: patient Airway prep: Preoxygenated: yes Patient position: sniffing MILS maintained throughout: yes Mask difficulty assessment: 1 - vent by mask Spontaneous ventilation during airway: absent Sedation level during airway: GA Final airway details: Final airway type: endotracheal airway Tube type: ETT ETT size: 8.0 mm Cuffed: yes Technique used for successful ETT placement: direct laryngoscopy Devices/Methods used in placement: intubating stylet Insertion site: oral Blade type: Bennett Blade size: 4 Cormack-Lehane (direct): grade IIa - partial view of glottis Cuff volume: 10 mL Cuff inflated with: air ETT to teeth: 24 cm Placement verified by: auscultation Airway secured with: silk tape Number of attempts: 1 DESK TEAM LEADER * Anesthesia Preprocedure Evaluation - Edmond Barker MD - 09/03/2019 2:55 PM CDT Images from the original note were not included. [facility] Pre[facility] Planning Preoperative Evaluation Record Evaluation type/location: CPAP [facility] Date: 09/03/19 Anesthesia Evaluation Hira Evans [...] Score: 0 Short Blessed Total Score: 0 DOS Physical Exam Medical history, medications, and allergies reviewed. Attestation: With today's edits, I endorse the findings of the anesthesia pre-evaluation assessment dated: 09/03/2019. Airway Exam: Mallampati: II Cervical ROM: FROM TM distance: 3 Jaw ROM: full Cardiovascular Exam: Rate: regular Rhythm: regular Negative for Murmur Pulmonary Exam: LCTA, bilat EENT Exam: trachea midline Dental Exam: Appears intact Current state: Patient's current state is cooperative. Anesthesia Plan ASA 2 My patient is approved for the Anesthesia Controlled Medication protocol when under care of a CARTOGRAPHY PROFESSOR Planned anesthesia: General Team communication plan: oral ET tube Comments: Patient prefers GA over spinal anesthesia Induction: Induction: intravenous. Postoperative Plan: Postoperative administration opioids intended. Patient's planned disposition post procedure is Floor. Informed Consent: Discussed plan with CARTOGRAPHY PROFESSOR. Anesthesia plan and risks discussed with patient and spouse. Consent and Attending signature: I and/or my designee have discussed the anesthesia plan, benefits, possible alternatives, parental presence at time of induction (if indicated), and clinically relevant risks that may include dental injury, unintentional awareness, and/or other complications. The patient and/or parent/legal guardian understand, and agree to proceed. All questions answered. DESK TEAM LEADER documented in this encounter Plan of Treatment Not on file documented as of this encounter Procedures Procedure Name Priority Date/Time Associated Diagnosis Comments GA AN PROCEDURE PLACEHOLDER Routine 09/30/2019 2:19 PM HELP DESK TEAM LEADER GA AN ELECTIVE ENDOTRACHEAL AIRWAY Routine 09/30/2019 2:19 PM HELP DESK TEAM LEADER documented in this encounter Results * GA AN ELECTIVE ENDOTRACHEAL AIRWAY, GA AN PROCEDURE PLACEHOLDER (09/30/2019 2:19 PM HELP DESK TEAM LEADER) Narrative Rafael Shaw III, CRNA - 09/30/2019 2:19 PM HELP DESK TEAM LEADER Rafael Shaw III, CRNA ? 09/30/2019 ??2:19 PM Airway Patient location: OR Urgency: elective Indications for airway management: anesthesia Difficult airway: no Staff: Placed by: CARTOGRAPHY PROFESSOR: Rafael Shaw III, CRNA Emergent airway documentation: Risks and benefits discussed: yes Consent obtained: yes Consent given by: patient Airway prep: Preoxygenated: yes Patient position: sniffing MILS maintained throughout: yes Mask difficulty assessment: 1 - vent by mask Spontaneous ventilation during airway: absent Sedation level during airway: GA Final airway details: Final airway type: endotracheal airway Tube type: ETT ETT size: 8.0 mm Cuffed: yes Technique used for successful ETT placement: direct laryngoscopy Devices/Methods used in placement: intubating stylet Insertion site: oral Blade type: Bennett Blade size: 4 Cormack-Lehane (direct): grade IIa - partial view of glottis Cuff volume: 10 mL Cuff inflated with: air ETT to teeth: 24 cm Placement verified by: auscultation Airway secured with: silk tape Number of attempts: 1 Edmond Barker MD ANESTHESIA ORDERABLES Final Result documented in this encounter Visit Diagnoses Not on filedocumented in this encounter Administered Medications Inactive Administered Medications - up to 3 most recent administrations Medication Order MAR Action Action Date Dose Rate Site ceFAZolin (ANCEF) injection intravenous, As needed, Starting on Sun09/30/19 at 1417, Anesthesia Intra-op Given 09/30/2019 2:17 PM HELP DESK TEAM LEADER 2,000 mg dexAMETHasone (DECADRON) 4 mg/mL injection Administer over 2 Minutes, As needed, Starting on Sun09/30/19 at 1456, Anesthesia Intra-op Given 09/30/2019 2:56 PM HELP DESK TEAM LEADER 4 mg dexMEDEtomidine (PRECEDEX) 80 mcg/20 mL (4 mcg/mL) in sodium chloride 0.9% (premix) As needed, Starting on Sun09/30/19 at 1452, Anesthesia Intra-op Given 09/30/2019 2:57 PM HELP DESK TEAM LEADER 12 mcg Given 09/30/2019 2:52 PM HELP DESK TEAM LEADER 12 mcg famotidine (PEPCID) injection Administer over 2 Minutes, As needed, Starting on Sun09/30/19 at 1456, Anesthesia Intra-op Given 09/30/2019 2:56 PM HELP DESK TEAM LEADER 20 mg fentaNYL (SUBLIMAZE) preservative free injection intravenous, As needed, Starting on Sun09/30/19 at 1405, Anesthesia Intra-op Given 09/30/2019 2:05 PM HELP DESK TEAM LEADER 100 mc g glycopyrrolate (ROBINUL) injection intravenous, Administer over 1 Minutes, As needed, Starting on Sun09/30/19 at 1626, Anesthesia Intra-op Given 09/30/2019 4:26 PM HELP DESK TEAM LEADER 0.6 mg HYDROmorphone (DILAUDID) injection intravenous, Administer over 2 Minutes, As needed, Starting on Sun09/30/19 at 1445, Anesthesia Intra-op Given 09/30/2019 2:45 PM HELP DESK TEAM LEADER 1 mg Lactated Ringer's (LR) infusion 30 mL/hr, intravenous, Continuous, Starting on Sun09/30/19 at 1215, Pre-Op New Bag 09/30/2019 3:05 PM HELP DESK TEAM LEADER Rate/Dose Verify 09/30/2019 1:57 PM HELP DESK TEAM LEADER New Bag 09/30/2019 12:27 PM HELP DESK TEAM LEADER 30 mL/hr 30 mL/hr lidocaine PF (XYLOCAINE) 10 mg/mL (1 %) preservative free injection As needed, Starting on Sun09/30/19 at 1405, Anesthesia Intra-op Given 09/30/2019 2:05 PM HELP DESK TEAM LEADER 60 mg midazolam (VERSED) preservative free injection intravenous, Administer over 2 Minutes, As needed, Starting on Sun09/30/19 at 1405, Anesthesia Intra-op Given 09/30/2019 2:05 PM HELP DESK TEAM LEADER 2 mg neostigmine (PROSTIGMIN) injection intravenous, Administer over 3 Minutes, As needed, Starting on Sun09/30/19 at 1626, Anesthesia Intra-op Given 09/30/2019 4:26 PM HELP DESK TEAM LEADER 3 mg ondansetron (ZOFRAN) injection Administer over 2 Minutes, As needed, Starting on Sun09/30/19 at 1456, Anesthesia Intra-op Given 09/30/2019 2:56 PM HELP DESK TEAM LEADER 4 mg ondansetron (ZOFRAN) injection intravenous, Administer over 2 Minutes, As needed, Starting on Sun09/30/19 at 1626, Anesthesia Intra-op Given 09/30/2019 4:26 PM HELP DESK TEAM LEADER 4 mg propofol (DIPRIVAN) IV intravenous, As needed, Starting on Sun09/30/19 at 1405, Anesthesia Intra-op Given 09/30/2019 2:45 PM HELP DESK TEAM LEADER 100 mg Given 09/30/2019 2:28 PM HELP DESK TEAM LEADER 50 mg Given 09/30/2019 2:23 PM HELP DESK TEAM LEADER 50 mg succinylcholine (ANECTINE) injection intravenous, As needed, Starting on Sun09/30/19 at 1405, Anesthesia Intra-op Given 09/30/2019 2:05 PM HELP DESK TEAM LEADER 80 mg tranexamic acid (CYKLOKAPRON) 1,000 mg/10 mL (100 mg/mL) solution intravenous, As needed, Starting on Sun09/30/19 at 1438, Anesthesia Intra-op Given 09/30/2019 2:38 PM HELP DESK TEAM LEADER 1,000 mg vecuronium (NORCURON) injection Administer over 1 Minutes, As needed, Starting on Sun09/30/19 at 1405, Anesthesia Intra-op Given 09/30/2019 2:58 PM HELP DESK TEAM LEADER 1 mg Given 09/30/2019 2:16 PM HELP DESK TEAM LEADER 4 mg Given 09/30/2019 2:05 PM HELP DESK TEAM LEADER 2 mg documented in this encounter Care Teams Risk Compliance Analyst Relationship Specialty Start Date End Date Rl Medina DO [address] [place] [address] PCP - General 08/09/17 05/25/24 documented as of this encounter
--- OUTSIDE RECORDS SUMMARY | 2024-11-05 19:28 | XMS_ITS | Encounter Summary ---
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 I will call the patient with the time once the OR confirms DISTRIBUTOR * Telephone Encounter - Linda Rowan - 10/18/2022 12:51 PM CST ----- Message from Ashley Mcmillan MD sent at 10/17/2022 1:33 PM CAR DISTRIBUTOR ----- Regarding: Schedule procedure Hi Linda, can you reach out to Mr. Evans to schedule surgery? Procedure: Cystoscopy, bladder biopsy CaseTime: 30 minutes Location: Any Pre-op Testing/Work-up: CPAP Other: First available, non-urgent in November Post-op appointment: I will call with pathology David Zelaya DISTRIBUTOR documented in this encounter Plan of Treatment Not on file documented as of this encounter Visit Diagnoses Not on filedocumented in this encounter Care Teams Fur Tanner Relationship Specialty Start Date End Date Rl Medina DO [address] [place] [address] PCP - General 08/09/17 05/25/24 documented as of this encounter
--- OUTSIDE RECORDS SUMMARY | 2024-11-05 19:28 | XMS_ITS | Encounter Summary ---
Author Organization [facility] Medical Group Address [address] [place] [address] Care Team Providers Care Uniform Attendant Name Role Phone Rl Medina DO Primary Care Provider Encounter Details Date Type Department Care Team (Late st Contact Info) Description 10/14/2021 Orders Only [facility] Testing Site - [address] [id number] Fransisco Heard MD [address] [place] [address] Pre-procedure lab exam (Primary Dx) Social History Tobacco Use Types [...] on file 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 Date of Px/chemo/treatment/placement/transfer 10/17/2021 ?? Testing site patient will be sent to: [place], [place] ?? Date testing requested: 10/15/2021 ?? Testing: COVID-19 RNA ?? Is this the first COVID-19 test for this patient? Yes ?? Does the patient currently work in a healthcare facility with direct patient contact? No ?? Is the patient a resident of a congregate care or living setting? No ?? Please select the performing region: [facility] Medical Group TECHNICIAN documented in this encounter Miscellaneous Notes * Addendum Note - Susan Lozano - 10/14/2021 5:31 PM CSTAddended by: SUSAN LOZANO on: 10/15/2021 10:53 PM Modules accepted: Orders TECHNICIAN documented in this encounter Plan of Treatment Not on file documented as of this encounter Results * COVID-19 Coronavirus RNA Nasopharyngeal (10/15/2021 2:05 PM CSR TECHNICIAN) COVID-19 RNA Not Detected [facility] Comment: Interpretive Data Synonyms for this test include: PCR and NAAT . ??Testing performed by the [facility] Molecular Infectious Disease Laboratory. The 2019-Novel Coronavirus [...] December 09, 2020. First COVID-19 test? Yes [facility] Employeed in healthcare? No [facility] Group care resident? No [facility] Hospitalized? Unknown [facility] Is patient in ICU? Unknown [facility] Symptomatic as defined by CDC? No [facility] Nasopharyngeal 10/15/2021 2: 05 PM CSR TECHNICIAN 10/15/2021 11:24 PM CSR TECHNICIAN Narrative [facility] - 10/16/2021 7:53 PM CSR TECHNICIAN What is the reason for testing?->Screening prior to scheduled procedure or surgery (batch) us Fransisco Heard MD LAB MICROBIOLOGY - GENERAL ORDERABLES Final Result [facility] Department [place] [address] documented in this encounter Visit Diagnoses Diagnosis Pre-procedure lab exam- Primary Pre-procedural laboratory examination Pre-procedure lab exam Pre-procedural laboratory examination documented in this encounter Care Teams Uniform Attendant Relationship Specialty Start Date End Date Rl Medina DO [address] [place] [address] PCP - General 08/09/17 05/25/24 documented as of this encounter
--- OUTSIDE RECORDS SUMMARY | 2024-11-05 19:28 | XMS_ITS | Encounter Summary ---
Author Organization [facility] Healthcare Address [address] [place] [address] Care Team Providers Care Cyber Intel Planner Name Role Phone Rl Medina DO Primary Care Provider Encounter Details Date Type Department Care Team (Late st Contact Info) Description 10/17/2021 1:36 PM RN WOMEN SERVICES Anesthesia Event [facility] Operating Room [address] [place] [address] Edmond Hickey MD [address] [place] [address] Caron Valverde, CARLA [address] [facility] [address] [phone] [place] [address] Anesthesia Record Procedure Summary Procedure Name Responsible Anesthesiologist Anesthesia Start Time Anesthesia Stop Time ARTHROPLASTY LEFT TOTAL KNEE ? GALE ROBOTIC ARM (Left: Knee) Edmond Hickey MD 10/17/21 1336 10/17/21 1557 Events Date Time Event Comment 10/17/2021 1046 In Preop 1214 1247 Time out - Regional 1247 Start Supplemental O2 1247 Face Time 1247 An Block Induction The patie nt was reevaluated immediately before moderate or deep sedation and before anesthesia induction. 1247 Spinal Placed 1250 AN Equip Check 1336 An Start 1338 In Room 1338 An Start Data 1342 Start Supplemental O2 1342 An Induction The patient was reevaluated immediately before moderate or deep sedation use and before anesthesia induction. 1346 Anesthesia Ready 1403 Proc Start 1404 Incision Start 15[address] GA Spinal place d at 1247; patient unable to lay still with sedation 1526 An LMA 1545 An Extubation 1547 Proc Fin 1549 an stop data 1552 Out of Room 1557 Handoff to RN I completed my handoff [...] disposition at the time of handoff: PACU 1557 An Stop Meds Name Total midazolam 2 mg/2 mL 4 mg fentaNYL PF 200 mcg bupivacaine 0.75 %-dextrose 8.25 % PF 1. 8 mL Lido Infilt 1% 2 mL propofol 220 mg propofol 1,457.38 mg lidocaine IV 1% 50 mg ceFAZolin (ANCEF) 1 gram/10 mL in steril e water (premix) 2,000 mg 2,000 mg dexAMETHasone (DECADRON) 4 mg/mL injecti on 8 mg 8 mg famotidine (PEPCID) injection 20 mg 20 m g ketorolac (TORADOL) 30 mg/mL (1 mL) inje ction 15 mg 15 mg tranexamic acid (CYKLOKAPRON ) 1,000 mg/100 mL (10 mg/mL) in sodium chloride (premix) 1,000 mg 1,000 mg tranexamic acid (CYKLOKAPRON ) 1,000 mg/100 mL (10 mg/mL) in sodium chloride (premix) 1,000 mg 1,000 mg ondansetron PF 4 mg Lactated Ringer's (LR) infusion 3,000 mL * Agents Name O2 Air Sevoflurane Inspired Sevoflurane * Blood No blood administrations on file. Lines, Drains, and Airways Type Details Placement Removal Peripheral IV Placement Date: 10/17/21; Placement Time: 112; Catheter Size: 20 G; Orientation: Left; Location: Wrist; Site Prep: Chlorhexidine; Insertion Attempts: 1; Patient Tolerance: Tolerated well; Removal Date: 10/18/21; Removal Reason: Discharge 10/17/21 1124 by Cindy Eagle RN 10/18/21 0000 by Latha Harris RN RETIRED Surgical Site 10/17/21; 1259; Le ft; Knee; 10/12/23; Not present on admission 10/17/21 1259 by Dania Barnes RN 10/12/23 0000 by Lynnette Guallpa RN Urethral Catheter Placement Date: 10/17/21; Placement Time: 1302; Inserted by: khadijah rn; Type: Straight-tip; Balloon Size: 10 mL; Urine Returned: Yes; Removal Date: 10/17/21; Removal Time: 174; Removal Reason: Per order 10/17/21 1302 by Kaiser Richard RN 10/17/21 1744 by Carey Marroquin RN documented in this encounter Social History Tobacco Use Types Packs/Day Years Used Date Smoking Tobacco: Former Cigarettes 1 09 05 969 1979 Smokeless Tobacco: Never Alcohol Use [...] file Legal Sex Male 9:07 PM RN WOMEN SERVICES Gender Identity Not on file Sexual Orientation Not on file documented as of this encounter OR Notes * Anesthesia Postprocedure Evaluation - Edmond Hickey MD - 10/18/2021 8:08 AM CST Patient: Hira Evans Procedure Summary Date: 10/17/21 Room / Location: [facility] OPERATING ROOM [facility] OPERATING ROOM Anesthesia Start: 1336 Anesthesia Stop: 1557 Procedure: ARTHROPLASTY LEFT TOTAL KNEE - GALE ROBOTIC ARM (Left Knee) Diagnosis: Primary osteoarthritis of left knee (Primary osteoarthritis of left knee [M17.12]) Surgeons: Fransisco Heard MD Responsible Provider: Edmond Hickey MD Anesthesia Type: regional as primary anesthetic, spinal ASA Status: 2 Anesthesia Type: regional as primary anesthetic, spinal Last vitals BP 137/83 (BP Location: Right arm) Pulse 64 Temp 36.4 ??C (97.5 ??F) (Oral) Resp 18 SpO2 94% Anesthesia Post Evaluation Patient location during evaluation: PACU Patient participation: complete - patient participated Level of consciousness: fully awake Pain score: 2 Pain management: adequate Airway patency: adequate Evidence of recall: no Cardiovascular status: hemodynamically stable Respiratory status: acceptable Hydration status: euvolemic Pt is: normothermic Nausea/Vomiting status: none No complications documented. WOMEN SERVICES * Anesthesia Procedure Notes - Edmond Hickey MD - 10/17/2021 12:47 PM CSTAssociated Order(s): Spinal Block Spinal Block Patient location: pre-op holding Reason for block: primary anesthetic Procedure prep: Preprocedure checklist: patient identified, procedure contraindications assessed, site marked, procedure consent, surgical consent, IV checked, risks, benefits and alternatives discussed, monitors and equipment checked and timeout performed Patient position: sitting Procedure performed while patient: sedate with meaningful contact Monitoring: oximetry and blood pressure Supplemental O2: nasal cannula Prep solution: chlorhexadine/alcohol PPE: provider hat/mask, sterile gloves and sterile drape Skin infiltrated with lidocaine 1%: yes Spinal: Approach: midline Location: L3-4 Spinal injection: CSF demonstrated, no aspiration of heme and no paresthesias noted Number of attempts: 1 Spinal Needle: Needle type: Quincke Needle gauge: 22 G Needle length: 9 cm Assessment: Events: patient tolerated procedure well with no complications WOMEN SERVICES * Anesthesia Preprocedure Evaluation - Edmond Hickey MD - 09/27/2021 10:15 AM CST Images from the original note were not included. [facility] Preoperative Evaluation Record Evaluation type/location: [facility] Planned procedure site: [facility] OR Date: 09/28/21 Anesthesia Evaluation [...] testing to be performed on 10/15 in [place] [facility] will place the order for testing. Result [...] flank ??? PROSTATECTOMY 2009 No Known Allergies Taking? Last Dose Start [...] capsule -- -- Fidelia Perdue MD peg [id number]-yymthkgxeebo-bfjbjmog (Visine Tired Eye Relief) 1-0.36-0.2 % drops 10/06/19 -- Fidelia Perdue MD polyethylene glycol (MIRALAX) 17 gram/dose powder 10/06/19 -- Fidelia Perdue MD sildenafil, antihypertensive, (REVATIO) 20 mg tablet -- -- Provider, MD Fidelia Current Outpatient Medications: ??? acetaminophen (Tylenol Extra [...] omeprazole (PriLOSEC) 20 mg capsule ??? peg 421-cmjchopgkvcp-ofuihbec (Visine Tired Eye Relief) 1-0.36-0.2 % drops [...] Attestation: This PAT evaluation Airway Exam: Mallampati: II Cervical ROM: FROM Cardiovascular Exam: Rate: regular Rhythm: regular Pulmonary Exam: LCTA, bilat Anesthesia Plan ASA 2 My patient is approved for the Anesthesia Controlled Medication protocol when under care of a DIE ENGRAVING SUPERVISOR Planned anesthesia: Regional as primary anesthetic and spinal Informed Consent: Anesthesia plan and risks discussed with patient. Plan and Consent Comments: Risks of spinal anesthesia discussed including infection, bleeding, nerve injury/paralysis, backache, PDPH as well as ineffective/patchy spinal effect (with potential conversion to general anesthesia) Consent and Attending signature: I and/or my designee have discussed the anesthesia plan, benefits, possible alternatives, parental presence at time of induction (if indicated), and clinically relevant risks that may include dental injury, unintentional awareness, and/or other complications. The patient and/or parent/legal guardian understand, and agree to proceed. All questions answered. WOMEN SERVICES WOMEN SERVICES WOMEN SERVICES WOMEN SERVICES documented in this encounter Plan of Treatment Not on file documented as of this encounter Procedures Procedure Name Priority Date/Time Associated Diagnosis Comments NJ AN PROCEDURE PLACEHOLDER Routine 10/17/2021 12:47 PM RN WOMEN SERVICES documented in this encounter Results * NJ AN PROCEDURE PLACEHOLDER (10/17/2021 12:47 PM RN WOMEN SERVICES) Narrative Edmond Hickey MD - 10/17/2021 12:47 PM RN WOMEN SERVICES Edmond Hickey MD ? 10/17/2021 12:47 PM Spinal Block Patient location: pre-op holding Reason for block: primary anesthetic Procedure prep: Preprocedure checklist: patient identified, procedure contraindications assessed, site marked, procedure consent, surgical consent, IV checked, risks, benefits and alternatives discussed, monitors and equipment checked and timeout performed Patient position: sitting Procedure performed while patient: sedate with meaningful contact Monitoring: oximetry and blood pressure Supplemental O2: nasal cannula Prep solution: chlorhexadine/alcohol PPE: provider hat/mask, sterile gloves and sterile drape Skin infiltrated with lidocaine 1%: yes Spinal: Approach: midline Location: L3-4 Spinal injection: CSF demonstrated, no aspiration of heme and no paresthesias noted Number of attempts: 1 Spinal Needle: Needle type: Quincke Needle gauge: 22 G Needle length: 9 cm Assessment: Events: patient tolerated procedure well with no complications Edmond Hickey MD ANESTHESIA ORDERABLES Fi nal Result documented in this encounter Visit Diagnoses Not on filedocumented in this encounter Administered Medications Inactive Administered Medications - up to 3 most recent administrations Medication Order MAR Action Action Date Dose Rate Site bupivacaine 0.75% (MARCAINE SPINAL) preservative free injection in dextrose intrathecal, As needed, Starting on Sun10/17/21 at 1247, Anesthesia Intra-op, Indications: Spinal AnesthesiaIndications:Spinal Anesthesia Given 10/17/2021 12:47 PM RN WOMEN SERVICES 1.8 mL ceFAZolin (ANCEF) 1 gram/10 mL in sterile water (premix) 2,000 mg 2,000 mg, intravenous, at 400 mL/hr, Administer over 3 Minutes, Once, On Sun10/17/21 at 1130, For 1 dose, Pre-Op, Administer within 60 minutes of incision., Indications: Prophylaxis, SurgicalIndications:Prophylaxis, Surgical Given 10/17/2021 1:46 PM RN WOMEN SERVICES 2,000 mg dexAMETHasone (DECADRON) 4 mg/mL injection 8 mg 8 mg, intravenous, Administer over 2 Minutes, Once, On Sun10/17/21 at 1400, For 1 dose, Intra-Op, Intra-op administration., Indications: Pain Treatment AdjunctIndications:Pain Treatment Adjunct Given 10/17/2021 3:31 PM RN WOMEN SERVICES 8 mg famotidine (PEPCID) injection 20 mg 20 mg, intravenous, Administer over 2 Minutes, Once as needed, heartburn, Medication to be administered by the anesthesia staff (Anesthesiologist or DIE ENGRAVING SUPERVISOR), Starting on Sun10/17/21 at 1048, For 1 dose, Pre-Op, Indications: gastroesophageal reflux disease, Heartburn, Heartburn Prevention, RefluxIndications:gastroesophagea l reflux disease,Heartburn,Heartburn Prevention,Reflux Given 10/17/2021 1:36 PM RN WOMEN SERVICES 20 mg fentaNYL (SUBLIMAZE) preservative free injection intravenous, As needed, Starting on Sun10/17/21 at 1247, Anesthesia Intra-op Given 10/17/2021 3:35 PM RN WOMEN SERVICES 50 mcg Given 10/17/2021 3:21 PM RN WOMEN SERVICES 50 mcg Given 10/17/2021 12:47 PM RN WOMEN SERVICES 100 mcg ketorolac (TORADOL) 30 mg/mL (1 mL) injection 15 mg 15 mg, intravenous, Once, On Sun10/17/21 at 1400, For 1 dose, Intra-Op, INTRA-OP Give at time of skin closure, Indications: Postoperatvie Pain ManagementIndications:Postoperatvie Pain Management Given 10/17/2021 3:35 PM RN WOMEN SERVICES 15 mg Lactated Ringer's (LR) infusion 30 mL/hr, intravenous, Continuous, Starting on Sun10/17/21 at 1130, For 4 hours, Pre-Op, Use a 500 ml bag for End Stage Renal Disease Patients. Discontinue if fluid still running once patient arrives to floor. New Bag 10/17/2021 3:40 PM RN WOMEN SERVICES 30 mL/hr New Bag 10/17/2021 2:10 PM RN WOMEN SERVICES 30 mL/hr Rate/Dose Verify 10/17/2021 1:36 PM RN WOMEN SERVICES 30 mL/h r lidocaine (XYLOCAINE) 10 mg/mL (1 %) injection intravenous, As needed, Starting on Sun10/17/21 at 1342, Anesthesia Intra-op, Indications: Administration of Local AnesthesiaIndications:Administration of Local Anesthesia Given 10/17/2021 1:42 PM RN WOMEN SERVICES 50 mg lidocaine PF (XYLOCAINE) 10 mg/mL (1 %) preservative free injection infiltration, As needed, Starting on Sun10/17/21 at 1247, Anesthesia Intra-op Given 10/17/2021 12:47 PM RN WOMEN SERVICES 2 mL midazolam (VERSED) 1 mg/mL injection intravenous, As needed, Starting on Sun10/17/21 at 1247, Anesthesia Intra-op Given 10/17/2021 12:47 PM RN WOMEN SERVICES 4 mg ondansetron (ZOFRAN) injection intravenous, Administer over 2 Minutes, As needed, Starting on Sun10/17/21 at 1336, Anesthesia Intra-op Given 10/17/2021 1:36 PM RN WOMEN SERVICES 4 mg propofoL (DIPRIVAN) 10 mg/mL IV intravenous, As needed, Starting on Sun10/17/21 at 1342, Anesthesia Intra-op Given 10/17/2021 3:25 PM RN WOMEN SERVICES 150 mg Given 10/17/2021 2:11 PM RN WOMEN SERVICES 20 mg Given 10/17/2021 2:05 PM RN WOMEN SERVICES 20 mg propofoL (DIPRIVAN) 10 mg/mL IV intravenous, Continuous PRN, Starting on Sun10/17/21 at 1342, Anesthesia Intra-op Rate/Dose Change 10/17/2021 2:11 PM RN WOMEN SERVICES 175 mcg/kg/min 93.45 mL/hr Rate/Dose Change 10/17/2021 2:05 PM RN WOMEN SERVICES 150 mcg/kg/min 80. 1 mL/hr Rate/Dose Change 10/17/2021 1:58 PM RN WOMEN SERVICES 125 mcg/kg/min 66. 75 mL/hr tranexamic acid (CYKLOKAPRON) 1,000 mg/100 mL (10 mg/mL) in sodium chloride (premix) 1,000 mg 1,000 mg, intravenous, at 400 mL/hr, Administer over 15 Minutes, Once, On Sun10/17/21 at 1400, For 1 dose, Intra-Op, INTRA-OP Infuse over 10 minutes prior to skin incision, Indications: Reduction of Perioperative Blood LossIndications:Reduction of Perioperative Blood Loss Given 10/17/2021 1:36 PM RN WOMEN SERVICES 1,000 mg tranexamic acid (CYKLOKAPRON) 1,000 mg/100 mL (10 mg/mL) in sodium chloride (premix) 1,000 mg 1,000 mg, intravenous, at 400 mL/hr, Administer over 15 Minutes, Once, On Sun10/17/21 at 1400, For 1 dose, Intra-Op, INTRA-OP Infuse over 10 minutes at the start of wound closure., Indications: Reduction of Perioperative Blood LossIndications:Reduction of Perioperative Blood Loss Given 10/17/2021 3:30 PM RN WOMEN SERVICES 1,000 mg documented in this encounter Care Teams Cyber Intel Planner Relationship Specialty [place] [address] [place] [id number] PCP - General 08/09/17 05/25/24 documented as of this encounter
--- OUTSIDE RECORDS SUMMARY | 2024-11-05 19:28 | XMS_ITS | Encounter Summary ---
Author Organization [facility] Healthcare Address [address] [place] [address] Care Team Providers Care Digital Manager Name Role Phone Rl Medina DO Primary Care Provider Reason for Referral * Diagnostic Imaging (Routine) - Closed Specialty Diagnoses / Procedures Referred By Manisha gale Referred To Contact Diagnoses Mechanical loosening of internal right knee prosthetic joint, initial encounter (HCC) Procedures XR Bone Length Study Fransisco Heard MD Phone: tel: fax: [address] [phone] Referral ID Status Reason Start Date Expiration Date Visits Re quested Visits Authorized [id number] Closed 09/03/2019 03/14/2021 1 1 Reason for Visit * Diagnostic Imaging (Routine) - Closed Specialty Diagnoses / Procedures Referred By Manisha gale Referred To Contact Diagnoses Mechanical loosening of internal right knee prosthetic joint, initial encounter (HCC) Procedures XR Bone Length Study Fransisco Heard MD Phone: tel: fax: [address] [phone] Referral ID Status Reason Start Date Expiration Date Visits Re quested Visits Authorized [id number] Closed 09/03/2019 03/14/2021 1 1 Encounter Details Date Type Department Care Team (Latest Contact Info) Description 09/03/2019 3:50 PM CDT - 09/03/2019 11:59 PM CDT Hospital Encounter [facility] [address] [place] [id number] Fransisco Heard MD [address] [place] [address] Mechanical loosening of internal right knee prosthetic joint, initial encounter ([facility]) Discharge Disposition: Discharge to home or self care Social History Tobacco Use Types Packs/Day Years Used Date Smoking Tobacco: Former Cigarettes 1 11 1 729 - 5536 Smokeless Tobacco: Never Alcohol Use Standard Drinks/Week Comments Yes 14 (1 standard drink = 0.6 oz pu re alcohol) social Sex and Gender Information Value Date Recorded Sex Assigned at Not on file 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 Gender Identity Not on file Sexual Orientation Not on file documented as of this encounter Medications at Time of Discharge acetaminophen (TYLENOL) 500 mg tablet Take 1,000 mg by mouth every 6 (six) hours as needed for pain 9 acyclovir (ZOVIRAX) 400 mg tabletIndications:C hronic Suppression [...] by mouth every morning 6 07/08/2019 3 multivitamin with iron-mineral tabletIndications:M ineral Deficiency Prevention,Vitamin Deficiency Prevention Take 1 tablet by mouth every morning 9 omeprazole (PriLOSEC) 20 mg capsuleIndications: Treatment of [...] needed 1 documented as of this encounter Discharge Disposition Disposition Code Departure Means Destination Discharge to home or self care documented in this encounter Plan of Treatment Not on file documented as of this encounter Procedures Procedure Name Priority Date/Time Associated Diagnosis Comments XR BONE LENGTH STUDY Routine 09/03/2019 3:57 PM CDT Mechanical loosening of internal right knee prosthetic joint, initial encounter ([facility]) documented in this encounter Results * XR Bone Length Study (09/03/2019 3:57 PM CDT) Anatomical Region Laterality Modality Lower Extremities, Hip, Thig h, Knee, Lower Leg, Ankle, Foot N/A Computed Radiography 09/03/2019 4:11 PM CDT Impressions 09/03/2019 4:11 PM CDT MILD RIGHT KNEE VALGUS STATUS POST TOTAL ARTHROPLASTY. MILD OSTEOARTHRITIS OF THE LEFT KNEE. NO SIGNIFICANT LEG LENGTH DISCREPANCY. Electronically signed by: Jeronimo Galindo M.D. Narrative 09/03/2019 4:11 PM CDT XR BONE LENGTH STUDY HISTORY: Mechanical loosening of internal right knee prosthetic joint, initial encounter. COMPARISON: 07/23/2019 FINDINGS: AP and lateral projections of the lower extremities were obtained on the EOS system. The patient is status post total right knee arthroplasty. The right lower extremity is in mild valgus. There is a normal mechanical axis of the left lower extremity. Medial compartment osteoarthritis of the left knee is present. No significant leg length discrepancy is present. Procedure Note Jeronimo Galindo MD - 09/03/2019 XR BONE LENGTH STUDY HISTORY: Mechanical loosening of internal right knee prosthetic joint, initial encounter. COMPARISON: 07/23/2019 FINDINGS: AP and lateral projections of the lower extremities were obtained on the EOS system. The patient is status post total right knee arthroplasty. The right lower extremity is in mild valgus. There is a normal mechanical axis of the left lower extremity. Medial compartment osteoarthritis of the left knee is present. No significant leg length discrepancy is present. IMPRESSION: MILD RIGHT KNEE VALGUS STATUS POST TOTAL ARTHROPLASTY. MILD OSTEOARTHRITIS OF THE LEFT KNEE. NO SIGNIFICANT LEG LENGTH DISCREPANCY. Electronically signed by: Jeronimo Galindo M.D. Fransisco Heard MD IMG XR PROCEDURES Final Res ult documented in this encounter Visit Diagnoses Diagnosis Mechanical loosening of internal right knee prosthetic joint, initial encounter (HCC) documented in this encounter Care Teams Digital Manager Relationship Specialty Start Date End Date Rl Medina DO [address] [place] [address] PCP - General 08/09/17 05/25/24 documented as of this encounter
--- OUTSIDE RECORDS SUMMARY | 2024-11-05 19:28 | XMS_ITS | Encounter Summary ---
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 New two component left knee arthroplasty for osteoarthritis. Electronically signed by: Hood Kaur M.D. Narrative 10/17/2021 4:16 PM DYEHOUSE WORKER EXAMINATION: XR KNEE LEFT 1 OR 2 [...] osteoarthritis. Electronically signed by: Hood Kaur M.D. us Fransisco Heard MD IMG XR PROCEDURES Final Res ult documented in this encounter Visit Diagnoses Not on filedocumented in this encounter Care Teams Rug Cleaner Relationship Specialty Start Date End Date Rl Medina DO [address] [place] [address] PCP - General 08/09/17 05/25/24 documented as of this encounter
--- OUTSIDE RECORDS SUMMARY | 2024-11-05 19:28 | XMS_ITS | Encounter Summary ---
Author Organization [facility] Healthcare Address [address] [place] [address] Care Team Providers Care Healthcare Science Specialist Name Role Phone Rl Medina DO Primary Care Provider Reason for Referral * Diagnostic Imaging (Routine) - Closed Specialty Diagnoses / Procedures Referred By Charlesac t Referred To Contact Diagnoses Status post left knee replacement Procedures XR Knee Left 1 or 2 Views Fransisco Heard MD [address] [place] [address] Phone: tel: fax: [facility] Radiology [address] [place] [phone] Phone: tel: Referral ID Status Reason Start Date Expiration Date Visits Re quested Visits Authorized [id number] Closed 12/22/2021 01/21/2023 1 1 Reason for Visit * Diagnostic Imaging (Routine) - Closed Specialty Diagnoses / Procedures Referred By Contac t Referred To Contact Diagnoses Status post left knee replacement Procedures XR Knee Left 1 or 2 Views Fransisco Heard MD [address] [place] [id number] Phone: tel: fax: [facility] Radiology [address] [place] [phone] Phone: tel: Referral ID Status Reason Start Date Expiration Date Visits Re quested Visits Authorized [id number] Closed 12/22/2021 01/21/2023 1 1 Encounter Details Date Type Department Care Team (Latest Contact Info) Description 02/07/2022 12:48 PM CDT - 02/07/2022 11:59 PM CDT Hospital Encounter [id number] [address] 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 Gender Identity Not on file Sexual Orientation Not on file documented as of this encounter Medications at Time of Discharge acyclovir (ZOVIRAX) 400 mg tabletIndications:C hronic Suppression Take 1 tablet (400 mg total) by mouth 2 (two) times a day 3 06/08/2019 4 aspirin 81 mg enteric coated tabletIndications:p revention of thrombosis Take 1 tablet (81 mg total) by mouth 2 (two) times a day 60 tablet 10/18/2021 2 cholecalciferol (VITAMIN D-3) 5,000 unit capsuleIndications: Vitamin D Deficiency Take 1 capsule (5,000 Units total) by mouth every morning 4 DILT-XR 240 mg 24 hr capsuleIndications: hypertension Take 1 capsule (240 mg total) by mouth 2 (two) times a day 0 05/12/2019 4 irbesartan (AVAPRO) 300 mg tabletIndications:h ypertension Take 1 tablet (300 mg total) by mouth every morning 08/10/2021 4 loratadine (CLARITIN) 10 mg tabletIndications:A llergic Rhinitis Take 1 tablet (10 mg total) by mouth daily as needed for allergies 3 mirabegron ER (MYRBETRIQ) 25 mg tablet extended release 24 hrIndications:Bladd er Hyperactivity Take 1 tablet (25 mg total) by mouth every morning 6 07/08/2019 3 omeprazole (PriLOSEC) 20 mg capsuleIndications: Treatment of Non-Bleeding Gastric Disorder,GERD Take 1 capsule (20 mg total) by mouth every morning 4 peg [id number]-[id number] ycerin 1-0.36-0.2 % dropsIndications:Dr dixon Eye Administer 1 drop into both eyes once daily as needed 10/06/2019 3 polyethylene glycol (MIRALAX) 17 gram/dose powderIndications:c onstipation Take 17 g by mouth daily as needed 10/06/2019 3 sildenafil, antihypertensive, (REVATIO) 20 mg tabletIndications:E D Take 1 tablet (20 mg total) by mouth as needed 3 documented as of this encounter Discharge Disposition Disposition Code Departure Means Destination Discharge to home or self care documented in this encounter Plan of Treatment Not on file documented as of this encounter Procedures Procedure Name Priority Date/Time Associated Diagnosis Comments XR KNEE LEFT 1 OR 2 VIEWS Schedule Routine, Read Routine (OP Routine) 02/07/2022 1:09 PM CDT Status post left knee replacement documented in [...] replacement documented in this encounter Care Teams Healthcare Science Specialist Relationship Specialty Start Date End Date Rl Medina DO [address] [place] [address] PCP - General 08/09/17 05/25/24 documented as of this encounter
--- OUTSIDE RECORDS SUMMARY | 2024-11-05 19:28 | XMS_ITS | Encounter Summary ---
Author Organization [facility] Healthcare Address [address] [place] [address] Care Team Providers Care Air Analysis Technician Name Role Phone Rl Medina DO Primary Care Provider Encounter Details Date Type Department Care Team (Late st Contact Info) Description 09/24/2019 4:10 PM HYDRAULIC PRESS IN OPERATOR Lab [address] [address] Right knee pain, unspecified chronicity; Aftercare following right knee joint replacement surgery Social History Tobacco Use Types Packs/Day Years Used Date Smoking Tobacco: Former Cigarettes 1 11 969 1979 Smokeless Tobacco: Never Alcohol Use Standard Drinks/Week Comments Yes 14 (1 standard drink = 0.6 oz pu re alcohol) social Sex and Gender Information Value Date Recorded Sex Assigned at Not on file 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 Gender Identity Not on file Sexual Orientation Not on file documented as of this encounter Plan of Treatment Not on file documented as of this encounter Procedures Procedure Name Priority Date/Time Associated Diagnosis Comments CRYSTAL ANALYSIS, BODY FLUID Routine 09/24/2019 3:28 PM HYDRAULIC PRESS IN OPERATOR Right knee pain, unspecified chronicity Aftercare following right knee joint replacement surgery CELL DIFFERENTIAL, BODY FLUID Routine 09/24/2019 3:28 PM HYDRAULIC PRESS IN OPERATOR AEROBIC AND ANAEROBIC CULTURE AND GRAM STAIN Routine 09/24/2019 3:28 PM HYDRAULIC PRESS IN OPERATOR Right knee pain, unspecified chronicity Aftercare following right knee joint replacement surgery documented in this encounter Results * Cell Differential, Body Fluid (09/24/2019 3:28 PM HYDRAULIC PRESS IN OPERATOR) Pathologist [facility] Total cells diffed 100 cells [facility] Comment: Interpretive Data Unless otherwise specified, the reference range and other method performance specifications have not been established for CSF/Body Fluid tests. ??The test results should be integrated into the clinical context for interpretation. Current interpretive data was last revised on 2019. Neutrophils, fld 4 % [facility] Lymphs, fld 4 % [facility] Monocyte, fld 81 % [facility] Synovial cells, fld 11 % [facility] Specimen type, fld SYNOVIAL FLUID [facility] Body site, fld RIGHT KNEE [facility] Fluid 09/24/2019 3:28 PM HYDRAULIC PRESS IN OPERATOR 09/24/2019 4:07 PM HYDRAULIC PRESS IN OPERATOR Fransisco Heard MD LAB BODY FLUIDS AND STOOLS ORDERABLES Final Result Performing Organization Address City/[facility]/ZIP Co de Phone Number [facility] Department [place] [address] * Crystal Analysis, Body Fluid (09/24/2019 3:28 PM HYDRAULIC PRESS IN OPERATOR) [facility] Specimen type, fld Synovial [facility] Body site, fld RIGHT KNEE [facility] Crystals None Seen None Seen [facility] Fluid 09/24/2019 3:28 PM HYDRAULIC PRESS IN OPERATOR 09/24/2019 4:09 PM HYDRAULIC PRESS IN OPERATOR Fransisco Heard MD LAB BODY FLUIDS AND STOOLS ORDERABLES Final Result [facility] [place] [address] * Aerobic and anaerobic culture and gram stain Aspirate Knee, right (09/24/2019 3:28 PM HYDRAULIC PRESS IN OPERATOR) Pathologist [facility] Direct Specimen Exam Stain: No polymorphonuclear leukocytes seen. No organisms seen. [facility] Report Final Report: No growth [facility] Aspirate (Knee, right) 09/24/2019 3:28 PM HYDRAULIC PRESS IN OPERATOR 09/24/2019 5:09 PM HYDRAULIC PRESS IN OPERATOR Narrative [facility] - 09/29/2019 10:53 AM HYDRAULIC PRESS IN OPERATOR Testing performed by [facility] ([phone]) Specimens submitted from normally sterile body sites [...] Final Result [facility] [place] [address] documented in this encounter Visit Diagnoses Diagnosis Right knee pain, unspecified chronicity Aftercare following right knee joint replacement surgery documented in this encounter Care Teams Air Analysis Technician Relationship Specialty Start Date End Date Rl Medina DO [address] [place] [address] PCP - General 08/09/17 05/25/24 documented as of this encounter
--- OUTSIDE RECORDS SUMMARY | 2024-11-05 19:29 | XMS_ITS | Encounter Summary ---
Author Organization [facility] Healthcare Address [address] [place] [address] Care Team Providers Care Security Incident Response Specialist Name Role Phone No, Physician Primary Care Provider [phone] Encounter Details Date Type Department Care Team (Latest Contact Info) Description 07/30/2017 10:44 AM CDT - 07/30/2017 11:59 PM CDT Hospital Encounter [facility] [phone] Kimberly Heard MD [address] [facility] [address] [place] [address] Discharge Disposition: Discharge to home or self care Social History Tobacco Use Types Packs/Day Years Used Date Smoking Tobacco: Former Sex and Gender Information Value Date Recorded Sex Assigned at Not on file 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 Gender Identity Not on file Sexual Orientation Not on file documented as of this encounter Medications at Time of Discharge celecoxib (CeleBREX) 200 mg capsule TAKE 1 CAPSULE ONCE DAILY WITH FOOD 12/06/2016 07/23/2019 diclofenac sodium (VOLTAREN) 1 % gel Place on the skin 04/11/2017 09/03/2019 documented as of this encounter Discharge Disposition Disposition Code Departure Means Destination Discharge to home or self care documented in this encounter Plan of Treatment Not on file documented as of this encounter Procedures Procedure Name Priority Date/Time Associated Diagnosis Comments KNEE RADIOGRAPHY, FRONTAL (AP), LATERAL, OBLIQUE Routine 07/30/2017 3:59 PM CDT documented in this encounter Results * KNEE RADIOGRAPHY, FRONTAL (AP), LATERAL, OBLIQUE (07/30/2017 3:59 PM CDT) Anatomical Region Laterality Modality N/A Radiographic Sharona ging 07/30/2017 3:59 PM CDT Narrative 07/30/2017 3:59 PM CDT DAYDAY BECK M.D. RICHY PULIDO M.D. FINAL REPORT The radiology attending physician has personally reviewed this study, and has reviewed and/or edited this written report and agrees with it. ACC# ??Date Time ??Exam [id number] Jul 30, 2017 10:59:00 [id number] Knee 3 views R EXAMINATION: ??Right knee 3 views HISTORY: Right knee osteoarthritis FINDINGS: 3 views of the right knee including AP and merchant views of both knees are compared to prior study dated 10/25/2016. ??A total right knee arthroplasty is unchanged with components in near anatomic alignment. ??No acute fracture is seen. ??A large right knee joint effusion is new from the prior examination Limited evaluation of the left knee demonstrates mild medial and patellofemoral compartment osteoarthritis. IMPRESSION: ??1. ??Right total knee arthroplasty in near anatomic position, with a new large right knee joint effusion 2. ??Mild medial and patellofemoral compartment osteoarthritis in the left knee. Electronically signed by: Dayday Beck M.D. Requested By: KIMBERLY HEARD M.D. Dictated By: ?? RICHY PULIDO M.D. ??on Jul 31 2017 ??4:08P This document has been electronically signed by: DAYDAY BECK M.D. on Jul 31 2017 ??4:08P [id number] BALDWIN M.D. FINAL REPORT The radiology attending physician has personally reviewed this study, and has reviewed and/or edited this written report and agrees with it. Attending: ??RAUL, ??KIMBERLY Requesting: ??RAUL, ??KIMBERLY Requesting Fax: ?? Attending Fax: ?? Attending ID: ??[id number] Requesting ID: ??[id number] Report To 1 ID: ??[id number] ? Report To 1 Name: ??, ?? Report To 1 FAX: ?? NextGen Order #: ?? Procedure Note Miscellaneous, Not In File / Provider, MD Fidelia - 07/31/2017 DAYDAY BECK M.D. RICHY PULIDO M.D. FINAL REPORT The radiology attending physician has personally reviewed this study, and has reviewed and/or edited this written report and agrees with it. ACC# Date Time Exam [id number] Jul 30, 2017 10:59:00 [id number] Knee 3 views R EXAMINATION: Right knee 3 views HISTORY: Right knee osteoarthritis FINDINGS: 3 views of the right knee including AP and merchant views of both knees are compared to prior study dated 10/25/2016. A total right knee arthroplasty is unchanged with components in near anatomic alignment. No acute fracture is seen. A large right knee joint effusion is new from the prior examination Limited evaluation of the left knee demonstrates mild medial and patellofemoral compartment osteoarthritis. IMPRESSION: 1. Right total knee arthroplasty in near anatomic position, with a new large right knee joint effusion 2. Mild medial and patellofemoral compartment osteoarthritis in the left knee. Electronically signed by: Dayday Beck M.D. Requested By: KIMBERLY HEARD M.D. Dictated By: RICHY PULIDO M.D. on Jul 31 2017 4:08P This document has been electronically signed by: DAYDAY BECK M.D. on Jul 31 2017 4:08P [id number] BALDWIN M.D. FINAL REPORT The radiology attending physician has personally reviewed this study, and has reviewed and/or edited this written report and agrees with it. Attending: KIMBERLY HEARD Requesting: KIMBERLY HEARD Requesting Fax: Attending Fax: Attending ID: [id number] Requesting ID: [id number] Report To 1 ID: [id number] Report To 1 Name: , Report To 1 FAX: NextGen Order #: [id number] Kimberly Heard MD IMG XR PROCEDURES Final Res ult documented in this encounter Visit Diagnoses Not on filedocumented in this encounter Care Teams Security Incident Response Specialist Relationship Specialty Start Date End Date No, Physician PCP - General 07/30/17 08/08/17 documented as of this encounter
--- OUTSIDE RECORDS SUMMARY | 2024-11-05 19:29 | XMS_ITS | Encounter Summary ---
Author Organization [facility] Healthcare Address [address] [place] [address] Care Team Providers Care Set And Exhibit Designer Name Role Phone Rl Medina DO Primary Care Provider Reason for Referral * Diagnostic Imaging (Routine) - Closed Specialty Diagnoses / Procedures Referred By Contac t Referred To Contact Diagnoses Left knee pain, unspecified chronicity Procedures XR Knee Left 3 Views Fransisco Heard MD Phone: tel: fax: [facility] Referral ID Status Reason Start Date Expiration Date Visits Re quested Visits Authorized [id number] Closed 07/23/2019 01/31/2021 1 1 * Diagnostic Imaging (Routine) - Closed Specialty Diagnoses / Procedures Referred By Contac t Referred To Contact Diagnoses Right knee pain, unspecified chronicity Procedures XR Knee Right 3 Views Fransisco Heard MD Phone: tel: fax: [facility] Referral ID Status Reason Start Date Expiration Date Visits Re quested Visits Authorized [id number] Closed 07/18/2019 01/26/2021 1 1 Reason for Visit * Diagnostic Imaging (Routine) - Closed Specialty Diagnoses / Procedures Referred By Contac t Referred To Contact Diagnoses Right knee pain, unspecified chronicity Procedures XR Knee Right 3 Views Fransisco Heard MD Phone: tel: fax: [facility] Referral ID Status Reason Start Date Expiration Date Visits Re quested Visits Authorized [id number] Closed 07/18/2019 01/26/2021 1 1 Encounter Details Date Type Department Care Team (Latest Contact Info) Description 07/23/2019 11:50 AM CDT - 07/23/2019 11:59 PM CDT Hospital Encounter [facility] [address] [place] [id number] Fransisco Heard MD [address] [place] [address] Right knee pain, unspecified chronicity; Left knee pain, unspecified chronicity Discharge Disposition: Discharge to home or self care Social History Tobacco Use Types Packs/Day Years Used Date Smoking Tobacco: Former Sex and Gender Information Value Date Recorded Sex Assigned at Not on file 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 22 g 07/23/2019 9 acyclovir (ZOVIRAX) 400 mg tabletIndications:C hronic Suppression Take 1 tablet (400 mg total) by mouth 2 (two) times a day 3 06/08/2019 4 celecoxib (CeleBREX) 100 mg capsuleIndications: Osteoarthritis,Post operative Acute Pain TAKE 2 PILLS WITH BREAKFAST THE DAY BEFORE SX. TAKE 1 PILL BID FOR 4 DAYS AFTER DISCHARGE. 10 capsule 07/23/2019 9 diclofenac sodium (VOLTAREN) 1 % gel Place on the skin 04/11/2017 9 DILT-XR 240 mg 24 hr capsuleIndications: hypertension Take 1 capsule (240 mg total) by mouth 2 (two) times a day 0 05/12/2019 4 losartan (COZAAR) 100 mg tabletIndications:h ypertension 100 mg every morning 1 mirabegron ER (MYRBETRIQ) 25 mg tablet extended release 24 hrIndications:Bladd er Hyperactivity Take 1 tablet (25 mg total) by mouth every morning 6 07/08/2019 3 nabumetone (RELAFEN) 750 mg tablet Take 750 mg by mouth 2 times daily 10/25/2018 9 omeprazole (PriLOSEC) 20 mg capsuleIndications: Treatment of Non-Bleeding Gastric Disorder,GERD Take 1 capsule (20 mg total) by mouth every morning 4 ondansetron (Zofran) 4 mg tablet Take 1 tablet by mouth every 6 hours 10/24/2018 1 sildenafil, antihypertensive, (REVATIO) 20 mg tabletIndications:E [...] Date/Time Associated Diagnosis Comments XR KNEE LEFT 3 VIEWS Schedule Routine, Read Routine (OP Routine) 07/23/2019 12:01 PM CDT Left knee pain, unspecified chronicity XR KNEE RIGHT 3 VIEWS Schedule Routine, Read Routine (OP Routine) 07/23/2019 12:01 PM CDT Right knee pain, unspecified chronicity documented in this encounter Results * XR Knee Left 3 Views (07/23/2019 12:01 PM CDT) Anatomical Region Laterality Modality Lower Extremities, Knee Left Computed Radiography 07/23/2019 12:1 9 PM CDT Impressions 07/23/2019 12:19 PM CDT 1. ??Unchanged, near anatomic alignment of a right total knee arthroplasty. 2. ??Interval progression of now moderate, medial joint space predominant, tricompartmental left knee osteoarthritis. Electronically signed by: Delisa Viera M.D. Narrative 07/23/2019 12:19 PM CDT EXAMINATION: 1. ??Right knee 3 views 2. ??Left knee 3 views HISTORY: Bilateral knee pain FINDINGS: 3 views of the bilateral knees were submitted. ??Comparison is made to prior knee radiographs, the most recent dated 07/30/2017. Right knee: Unchanged, near anatomic alignment of a right total knee arthroplasty. ??There is no new periprosthetic lucency to suggest loosening or fracture. ??There is a moderate right knee joint effusion. Left knee: There has been interval progression of now moderate medial joint space predominant tricompartmental left knee osteoarthritis. ??There is no acute fracture. ??There is no large left knee joint effusion. Procedure Note Delisa Viera MD - 07/23/2019 EXAMINATION: 1. Right knee 3 views 2. Left knee 3 views HISTORY: Bilateral knee pain FINDINGS: 3 views of the bilateral knees were submitted. Comparison is made to prior knee radiographs, the most recent dated 07/30/2017. Right knee: Unchanged, near anatomic alignment of a right total knee arthroplasty. There is no new periprosthetic lucency to suggest loosening or fracture. There is a moderate right knee joint effusion. Left knee: There has been interval progression of now moderate medial joint space predominant tricompartmental left knee osteoarthritis. There is no acute fracture. There is no large left knee joint effusion. IMPRESSION: 1. Unchanged, near anatomic alignment of a right total knee arthroplasty. 2. Interval progression of now moderate, medial joint space predominant, tricompartmental left knee osteoarthritis. Electronically signed by: Delisa Viera M.D. Fransisco Heard MD IMG XR PROCEDURES Final Res ult * XR Knee Right 3 Views (07/23/2019 12:01 PM CDT) Anatomical Region Laterality Modality Lower Extremities, Knee Right Computed Radiography 07/23/2019 12:1 9 PM CDT Impressions 07/23/2019 12:19 PM CDT 1. ??Unchanged, near anatomic alignment of a right total knee arthroplasty. 2. ??Interval progression of now moderate, medial joint space predominant, tricompartmental left knee osteoarthritis. Electronically signed by: Delisa Viera M.D. Narrative 07/23/2019 12:19 PM CDT EXAMINATION: 1. ??Right knee 3 views 2. ??Left knee 3 views HISTORY: Bilateral knee pain FINDINGS: 3 views of the bilateral knees were submitted. ??Comparison is made to prior knee radiographs, the most recent dated 07/30/2017. Right knee: Unchanged, near anatomic alignment of a right total knee arthroplasty. ??There is no new periprosthetic lucency to suggest loosening or fracture. ??There is a moderate right knee joint effusion. Left knee: There has been interval progression of now moderate medial joint space predominant tricompartmental left knee osteoarthritis. ??There is no acute fracture. ??There is no large left knee joint effusion. Procedure Note Delisa Viera MD - 07/23/2019 EXAMINATION: 1. Right knee 3 views 2. Left knee 3 views HISTORY: Bilateral knee pain FINDINGS: 3 views of the bilateral knees were submitted. Comparison is made to prior knee radiographs, the most recent dated 07/30/2017. Right knee: Unchanged, near anatomic alignment of a right total knee arthroplasty. There is no new periprosthetic lucency to suggest loosening or fracture. There is a moderate right knee joint effusion. Left knee: There has been interval progression of now moderate medial joint space predominant tricompartmental left knee osteoarthritis. There is no acute fracture. There is no large left knee joint effusion. IMPRESSION: 1. Unchanged, near anatomic alignment of a right total knee arthroplasty. 2. Interval progression of now moderate, medial joint space predominant, tricompartmental left knee osteoarthritis. Electronically signed by: Delisa Viera M.D. Fransisco Heard MD IMG XR PROCEDURES Final Res ult documented in this encounter Visit Diagnoses Diagnosis Right knee pain, unspecified chronicity Left knee pain, unspecified chronicity documented in this encounter Care Teams Set And Exhibit Designer Relationship Specialty Start Date End Date Rl Medina DO [address] [place] [address] PCP - General 08/09/17 05/25/24 documented as of this encounter
--- OUTSIDE RECORDS SUMMARY | 2024-11-05 19:29 | XMS_ITS | Encounter Summary ---
Author Organization [facility] Address [address] [place] [address] Phone Care Team Providers Care Lining Repairer Name Role Phone Rl Medina DO Primary Care Provider Encounter Details Date Type Department Care Team (Late st Contact Info) Description 07/18/2019 Orders Only [facility] Orthopaedic Surgery [address] [place] [address] 2nd [address] [place] [address] Rima Small RMA Social History Tobacco Use Types Packs/Day Years Used Date Smoking Tobacco: Former Sex and Gender Information Value Date Recorded Sex Assigned at Not on file 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 mirabegron ER (MYRBETRIQ) 25 mg tablet extended release 24 hrIndications:Bladd er Hyperactivity Take 1 tablet (25 mg total) by mouth every morning 6 07/08/2019 3 DILT-XR 240 mg 24 hr capsuleIndications: hypertension Take 1 capsule (240 mg total) by mouth 2 (two) times a day 0 05/12/2019 4 acyclovir (ZOVIRAX) 400 mg tabletIndications:C hronic Suppression Take 1 tablet (400 mg total) by mouth 2 (two) times a day 3 06/08/2019 4 zolpidem (AMBIEN) 10 mg tabletIndications:S leep-Onset Insomnia Take 10 mg by mouth nightly as needed 1 omeprazole (PriLOSEC) 20 mg capsuleIndications: Treatment of Non-Bleeding Gastric Disorder,GERD Take 1 capsule (20 mg total) by mouth every morning 4 losartan (COZAAR) 100 mg tabletIndications:h ypertension 100 mg every morning 1 diclofenac sodium (VOLTAREN) 1 % gel Place on the skin 04/11/2017 9 celecoxib (CeleBREX) 200 mg capsule TAKE 1 CAPSULE ONCE DAILY WITH FOOD 12/06/2016 9 added in this encounter Care Teams Lining Repairer Relationship Specialty Start Date End Date Rl Medina DO [address] [place] [address] PCP - General 08/09/17 05/25/24 documented as of this encounter
--- OUTSIDE RECORDS SUMMARY | 2024-11-05 19:29 | XMS_ITS | Encounter Summary ---
Author Organization [facility] Address [address] [place] [address] Phone Care Team Providers Care Buffing Wheel Operator Name Role Phone Rl Medina DO Primary Care Provider [phone] Reason for Referral * Diagnostic Imaging (Routine) - Closed Specialty Diagnoses / Procedures Referred By Manisha gale Referred To Contact Diagnoses Mechanical loosening of internal right knee prosthetic joint, initial encounter (HCC) Procedures XR Bone Length Study Fransisco Heard MD Phone: tel: fax: [facility] [address] [place] [address] Referral ID Status Reason Start Date Expiration Date Visits Re quested Visits Authorized [id number] Closed 09/03/2019 03/14/2021 1 1 Encounter Details Date Type Department Care Team (Late st Contact Info) Description 09/03/2019 Orders Only [facility] Orthopaedic Surgery [address] [facility] Advanced Medicine 6th [place] [address] [place] [address] Fransisco Heard MD [address] [place] [address] Mechanical loosening of internal right knee prosthetic joint, initial encounter (CMS/HCC) (Primary Dx) Social History Tobacco Use Types Packs/Day Years Used Date Smoking Tobacco: Former Cigarettes 1 11 1 969 - 1979 Smokeless Tobacco: Never Alcohol Use Standard Drinks/Week Comments Yes 14 (1 standard drink = 0.6 oz pu re alcohol) social Sex and Gender Information Value Date Recorded Sex Assigned at Not on file Legal Sex 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 Electronically signed by: Jeronimo Galindo M.D. us Fransisco Heard MD IMG XR PROCEDURES Final Res ult documented in this encounter Visit Diagnoses Diagnosis Mechanical loosening of internal right knee prosthetic joint, initial encounter (HCC)- Primary Mechanical loosening of internal right knee prosthetic joint, initial encounter (HCC) documented in this encounter Care Teams Buffing Wheel Operator Relationship Specialty Start Date End Date Rl Medina DO [address] [place] [address] PCP - General 08/09/17 05/25/24 documented as of this encounter
--- OUTSIDE RECORDS SUMMARY | 2024-11-05 19:29 | XMS_ITS | Encounter Summary ---
Author Organization [facility] Address [address] [place] [address] Phone Care Team Providers Care Senior Ui Developer Name Role Phone Rl Medina DO Primary Care Provider Reason for Referral * Diagnostic Imaging (Routine) - Closed Specialty Diagnoses / Procedures Referred By Manisha t Referred To Contact Diagnoses Left knee pain, unspecified chronicity Procedures XR Knee Left 3 Views Fransisco Heard MD Phone: tel: fax: [facility] Referral ID Status Reason Start Date Expiration Date Visits Re quested Visits Authorized [id number] Closed 07/23/2019 01/31/2021 1 1 * Diagnostic Imaging (Routine) - Closed Specialty Diagnoses / Procedures Referred By Manisha gale Referred To Contact Diagnoses Right knee pain, unspecified chronicity Procedures XR Knee Right 3 Views Fransisco Heard MD Phone: tel: fax: [facility] Referral ID Status Reason Start Date Expiration Date Visits Re quested Visits Authorized [id number] Closed 07/18/2019 01/26/2021 1 1 Reason for Visit * Reason Comments Pain Pain Encounter Details Date Type Department Care Team (Late st Contact Info) Description 07/23/2019 11:45 AM CDT Office Visit [facility] Orthopaedic Surgery [address] [facility] 2[address] [place] [address] Fransisco Heard MD [address] [place] [address] Mechanical loosening of internal right knee prosthetic joint, initial encounter ([facility]) (Primary Dx); Right knee pain, unspecified chronicity; Left knee pain, unspecified chronicity Social History Tobacco Use Types Packs/Day Years Used Date Smoking Tobacco: Former Sex and Gender Information Value Date Recorded Sex Assigned at Not on file 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 Gender Identity Not on file Sexual Orientation Not on file documented as of this encounter Last Filed Vital Signs Vital Sign Reading Time Taken Comments Blood Pressure - - Pulse - - Temperature - - Respiratory Rate - - Oxygen Saturation - - Inhaled Oxygen Concentration - - Weight 86.2 kg (190 lb) 07/23/2019 12:43 PM CDT Height 172.7 cm (5' 8 ) 07/23/2019 12:43 PM CDT Body Mass Index 28.89 07/23/2019 12:43 PM CDT documented in this encounter Ordered Prescriptions Prescription Sig Dispense Quantity Refills Last Filled Start Date End Date mupirocin (BACTROBAN) 2 % ointment Apply topically 2 (two) times a day for 5 days APPLY TO NOSTRILS TWICE A DAY FOR 5 DAYS PRIOR TO SURGERY. 22 g 07/23/2019 9 celecoxib (CeleBREX) 100 mg capsuleIndications :Osteoarthritis,Po stoperative Acute Pain TAKE 2 PILLS WITH BREAKFAST THE DAY BEFORE SX. TAKE 1 PILL BID FOR 4 DAYS AFTER DISCHARGE. 10 capsule 07/23/2019 9 documented in this encounter Progress Notes * Fransisco Heard MD - 07/23/2019 11:45 AM CDT Patient returns today and has had progressive pain in her right knee. It is now constant severe. Hehas been noticeable limp. He has 1+ effusion mild instability stress testing. Radiographs show lucency at the bone-cement interface consistent with loosening. Based on his progressive symptoms that are not debilitating and his exam and radiographic findings is a candidate for revision total knee replacement. Risks benefits alternatives were discussed including the risk of some degree of persistent symptoms. He understands and wants proceed with this before the end of the year. documented in this encounter Miscellaneous Notes * Addendum Note - Valarie Escudero RN - 07/23/2019 11:45 AM CDTAddended by: VALARIE EMERY on: 07/23/2019 01:06 PM Modules accepted: Orders documented in this [...] knee prosthetic joint, initial encounter (HCC)- Primary Right knee pain, unspecified chronicity Left knee pain, unspecified chronicity Right knee pain, unspecified chronicity Left knee pain, unspecified chronicity documented in this encounter Discontinued Medications Medication Sig Discontinue Reason Start Date End Da te celecoxib (CeleBREX) 200 mg capsule TAKE 1 CAPSULE ONCE DAILY WITH FOOD 12/06/2016 07/23/2019 documented as of this encounter Historical Medications * This list may reflect changes made after this encounter. sildenafil, antihypertensive, (REVATIO) 20 mg tabletIndications :ED Take 1 tablet (20 mg total) by mouth as needed 10/11/2023 nabumetone (RELAFEN) 750 mg tablet Take 750 mg by mouth 2 times daily 10/25/2018 09/03/2019 added in this encounter Care Teams Senior Ui Developer Relationship Specialty Start Date End Date Rl Medina DO [address] [place] [address] PCP - General 08/09/17 05/25/24 documented as of this encounter
--- OUTSIDE RECORDS SUMMARY | 2024-11-05 19:29 | XMS_ITS | Encounter Summary ---
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
--- OUTSIDE RECORDS SUMMARY | 2024-11-05 19:29 | XMS_ITS | Encounter Summary ---
Author Organization [facility] Facility Care Team Providers Care Policy Advisor Name Role Phone Unavailable Primary Care Provider Unavailabl e Encounter Details Date Type Department Care Team (Latest Contact Info) Description 10/25/2016 10:05 AM BIG DATA HADOOP DEVELOPER - 10/25/2016 11:59 PM BIG DATA HADOOP DEVELOPER [facility] [address] [place] [address] Other specified postprocedural states; Presence of right artificial knee joint Social History Tobacco Use Types Packs/Day Years Used Date Smoking Tobacco: Former Sex and Gender Information Value Date Recorded Sex Assigned at Not on file Legal Sex Male 9:07 PM BIG DATA HADOOP DEVELOPER Gender Identity Not on file Sexual Orientation Not on file documented as of this encounter Plan of Treatment Not on file documented as of this encounter Procedures Procedure Name Priority Date/Time Associated Diagnosis Comments KNEE RADIOGRAPHY, FRONTAL (AP), LATERAL, OBLIQUE Routine 10/25/2016 10:28 AM BIG DATA HADOOP DEVELOPER documented in this encounter Results * KNEE RADIOGRAPHY, FRONTAL (AP), LATERAL, OBLIQUE (10/25/2016 10:28 AM BIG DATA HADOOP DEVELOPER) Anatomical Region Laterality Modality N/A Radiographic Sharona ging 10/25/2016 10:2 8 AM BIG DATA HADOOP DEVELOPER Narrative 10/25/2016 10:47 AM BIG DATA HADOOP DEVELOPER RASHAUN SILVA M.D. FINAL REPORT ACC# ??Date Time ??Exam [id number] Oct 25, 2016 10:28:00 [id number] Knee 3 views R EXAMINATION: ?Right knee 3 views HISTORY: ??Right knee osteoarthritis FINDINGS: ?? Three-view examination of the right knee including AP and tangential patellar views of both knees is submitted for interpretation and read without prior studies for comparison. There is a right total knee arthroplasty projecting in near-anatomic position. There is no acute fracture. There is no right knee joint effusion. Limited evaluation of the left knee shows mild medial compartment osteoarthritis. IMPRESSION: ?? 1. Right total knee arthroplasty in near-anatomic position. Requested By: KIMBERLY CARTER M.D. Dictated By: ?? RASHAUN SILVA M.D. ??on Oct 25 2016 10:47A This document has been electronically signed by: RASHAUN SILVA M.D. on Oct 25 2016 10:47A [id number] Procedure Note Provider, MD Fidelia - 03/13/2017 RASHAUN SILVA M.D. FINAL REPORT ACC# Date Time Exam [id number] Oct 25, 2016 10:28:00 [id number] Knee 3 views R EXAMINATION: Right knee 3 views HISTORY: Right knee osteoarthritis FINDINGS: Three-view examination of the right knee including AP and tangential patellar views of both knees is submitted for interpretation and read without prior studies for comparison. There is a right total knee arthroplasty projecting in near-anatomic position. There is no acute fracture. There is no right knee joint effusion. Limited evaluation of the left knee shows mild medial compartment osteoarthritis. IMPRESSION: 1. Right total knee arthroplasty in near-anatomic position. Requested By: KIMBERLY CARTER M.D. Dictated By: RASHAUN SILVA M.D. on Oct 25 2016 10:47A This document has been electronically signed by: RASHAUN SILVA M.D. on Oct 25 2016 10:47A [id number] us Historical Provider MD JEFF XR PROCEDURES Final R esult documented in this encounter Visit Diagnoses Diagnosis Other specified postprocedural states Presence of right artificial knee joint documented in this encounter
--- OUTSIDE RECORDS SUMMARY | 2024-11-05 19:29 | XMS_ITS | Encounter Summary ---
Author Organization [facility] Facility Care Team Providers Care Batteryman Name Role Phone Unavailable Primary Care Provider Unavailabl e Encounter Details Date Type Department Care Team (Late st Contact Info) Description 10/25/2016 4:53 PM VOLUNTEER SERVICES ASSISTANT - 10/25/2016 11:59 PM VOLUNTEER SERVICES ASSISTANT Hospital Encounter [facility] Fransisco Heard MD [address] [place] [address] Pain in right knee Social History Tobacco Use Types Packs/Day Years Used Date Smoking Tobacco: Former Sex and Gender Information Value Date Recorded Sex Assigned at Not on file Legal Sex Male 9:07 PM VOLUNTEER SERVICES ASSISTANT Gender Identity Not on file Sexual Orientation Not on file documented as of this encounter Plan of Treatment Not on file documented as of this encounter Procedures Procedure Name Priority Date/Time Associated Diagnosis Comments AEROBIC/ANAEROBIC CULTURE AND GRAM STAIN, CDR Routine 10/25/2016 11:37 AM VOLUNTEER SERVICES ASSISTANT JOINT FLUID CELL MORPHOLOGIC EXAM Routine 10/25/2016 11:37 AM VOLUNTEER SERVICES ASSISTANT FLUID CRYSTAL IDENTIFICATION Routine 10/25/2016 11:37 AM VOLUNTEER SERVICES ASSISTANT DISCHARGE LABORATORY CUMULATIVE REPORT 10/25/2016 documented in this encounter Results * (ABNORMAL) Joint fluid cell morphologic exam (10/25/2016 11:37 AM VOLUNTEER SERVICES ASSISTANT) Specimen type, fld Synovial R. Knee CDR HISTORICAL RESULTS Color, fld Dark Yellow(A) CDR HISTORICAL RESULTS Clarity, fld Cloudy(A) CDR HIS TORICAL RESULTS RBC, abs, fld 2492 cells/mcl CDR HI STORICAL RESULTS Nucleated cells, fld 623(H) 0 - 149 cells/mcl CDR HISTORICAL RESULTS Total cells diffed, fld 100 # of cells CDR HISTORICAL RESULTS Neutrophils, fld 1 0 - 24 % CDR HISTORICAL RESULTS Lymphs, fld 25 0 - 74 % CDR HIST ORICAL RESULTS [place]/Macrophag e, fld 73(H) 0 - 69 % CDR HISTORICAL RESULTS Epithelial cells, fld 1(H) 0 - 0 % CDR HISTORICAL RESULTS Synovial fluid 10/25/2016 11 :37 AM VOLUNTEER SERVICES ASSISTANT Fransisco Heard MD LAB BLOOD ORDERABLES Final Result Performing Organization Address [facility] de Phone Number CDR HISTORICAL RESULTS * Fluid crystal identification (10/25/2016 11:37 AM VOLUNTEER SERVICES ASSISTANT) Specimen type, fld Synovial CDR HISTORICAL RESULTS Crystals, fld None Seen None Seen CDR HI STORICAL RESULTS Miscellaneous 10/25/2016 11: 37 AM VOLUNTEER SERVICES ASSISTANT Fransisco Heard MD LAB BLOOD ORDERABLES Final Result Performing Organization Address [facility] de Phone Number CDR HISTORICAL RESULTS * Aerobic/anaerobic culture and Gram stain (10/25/2016 11:37 AM VOLUNTEER SERVICES ASSISTANT) Synovial fluid (Knee, right) 10/25/2016 11:37 AM VOLUNTEER SERVICES ASSISTANT 10/25/2016 5:08 PM VOLUNTEER SERVICES ASSISTANT Impressions CDR HISTORICAL RESULTS - 10/30/2016 7:49 AM VOLUNTEER SERVICES ASSISTANT Specimens submitted from normally sterile body sites [...] Current interpretive data was last revised on 2013. Narrative CDR HISTORICAL RESULTS - 10/30/2016 7:49 AM VOLUNTEER SERVICES ASSISTANT Cytospin gram stain shows: Rare polymorphonuclear leukocytes seen. No organisms seen. red blood cells No growth us Historical Provider LAB MICROBIOLOGY - GENERA L ORDERABLES Final Result CDR HISTORICAL RESULTS * DISCHARGE LABORATORY CUMULATIVE REPORT (10/25/2016) Narrative 10/25/2016 Ordered by an unspecified provider. us Historical Provider LAB BLOOD ORDERABLES Fide l Result documented in this encounter Visit Diagnoses Diagnosis Pain in right knee documented in this encounter
--- OUTSIDE RECORDS SUMMARY | 2024-11-05 19:29 | XMS_ITS | Encounter Summary ---
Author Organization [facility] Address [address] [place] [address] Phone Care Team Providers Care Flying Ii Instructor Name Role Phone Rl Medina DO Primary Care Provider Encounter Details Date Type Department Care Team (Late st Contact Info) Description 08/25/2019 Telephone [facility] Orthopaedic Surgery [facility] Advanced Medicine 6th [place] [address] [place] [address] Tamia Jay RN Social History Tobacco Use Types Packs/Day Years Used Date Smoking Tobacco: Former Sex and Gender Information Value Date Recorded Sex Assigned at Not on file 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 He is scheduled for tooth extraction this afternoon. He will call back after procedure to let us know if he is placed on antibiotic treatment or if any further procedures are required before cleared for surgery on 09/29. documented in this encounter Plan of Treatment Not on file documented as of this encounter Visit Diagnoses Not on filedocumented in this encounter Care Teams Flying Ii Instructor Relationship Specialty Start Date End Date Rl Medina DO [address] [place] [address] PCP - General 08/09/17 05/25/24 documented as of this encounter
--- OUTSIDE RECORDS SUMMARY | 2024-11-05 22:49 | XMS_ITS ---
Author Organization Unknown Address [address] [place] [phone] Phone Care Team Providers Care Wellness Nurse Rn Name Role Phone EDILMA SAMUEL Attending Unavailable [...] Code Syst em Smoking History Former smoker 2716123 SNOMED CT Sex Male Hospital Discharge Instructions [...] Code System No Known Allergies Moderate Active 225156257 SN OMED-CT Plan of Treatment US Kidney & Bladder (01439) 06/28/2021 MRI Lumbar WO Contrast (38119) 08/30/20 23 Encounters Encounter Diagnosis Start Date Code Code Sys tem Lumbar radiculopathy 09/06/2023 433818716 SNOMED- CT Personal Care Team Section Performer Name Performer Role Active Date Inactive YUNIOR Cuellar PCP - Primary care physician 2023-08-2 6
--- OUTSIDE RECORDS SUMMARY | 2024-11-05 22:49 | XMS_ITS ---
Author Organization Unknown Address [address] [place] [phone] Phone Care Team Providers Care Paperhanger Supervisor Name Role Phone HEAVEN MOJICA Attending [...] Temo Shanks M.D. WILY: WILY Report ID: [id number] Reading Location: [place] [address] Social History Type Status Start Date End Date Code Code Syst em Smoking History Former smoker 5662826 SNOMED CT Sex Male Hospital Discharge Instructions [...] Code System No Known Allergies Moderate Active 066163789 SN OMED-CT Plan of Treatment US Kidney & Bladder (73373) 06/28/2021 MRI Lumbar WO Contrast (78300) 08/30/20 23 Encounters Encounter Diagnosis Start Date Code Code Sys tem Spondylolisthesis, lumbar region 08/30/2023 SNOMED-CT Personal Care Team Section Performer Name Performer Role Active Date Inactive Da YUNIOR Gaspar PCP - Primary care physician 2 6
--- OUTSIDE RECORDS SUMMARY | 2024-11-05 22:49 | XMS_ITS ---
Author Organization Unknown Address [address] [place] [phone] Phone Care Team Providers Care Mentally Impaired Teacher Name Role Phone EDILMA SAMUEL Attending [...] Code Syst em Smoking History Former smoker 9328000 SNOMED CT Sex Male Hospital Discharge Instructions [...] Code System No Known Allergies Moderate Active 932616423 SN OMED-CT Plan of Treatment US Kidney & Bladder (29314) 06/28/2021 MRI Lumbar WO Contrast (77131) 08/30/20 23 Encounters Encounter Diagnosis Start Date Code Code Sys tem Lumbar radiculopathy 09/03/2023 794462109 SNOMED- CT Personal Care Team Section Performer Name Performer Role Active Date Inactive YUNIOR Cuellar PCP - Primary care physician 2023-08-2 6
--- OUTSIDE RECORDS SUMMARY | 2024-11-05 22:50 | XMS_ITS | Clinical Summary ---
Author Organization [facility] Address [address] [place] [address] Care Team Providers Care Sales Recruitment Specialist Name Role Phone Rl Medina MD Primary Care Provider [phone] Source Comments [facility],non-owned Affiliates and Associated Physician Practices is amultiple site organization consisting of ambulatory clinics and hospital sitesin [place] and [place]. This disclosure is being madepursuant to the Care Everywhere program and may not contain all information available regarding this patient. Last updated 18.[facility] Allergies No known active allergies Medications * [...] 86.2 kg (190 lb) 10/25/2018 12:22 PM HAT CONE INSPECTOR Height 175.3 cm (5' 9 ) 10/25/2018 12:22 PM HAT CONE INSPECTOR Body Mass Index 28.06 10/25/2018 12:22 PM HAT CONE INSPECTOR Plan of Treatment Health Maintenance Due Date [...] age to complete this topic Care Teams Sales Recruitment Specialist Relationship Specialty Start Date End Date Rl Medina MD [address] [place] [phone] PCP - General Family Medicine 04/25/16
--- OUTSIDE RECORDS SUMMARY | 2024-11-05 22:50 | XMS_ITS | Encounter Summary ---
Author Organization [facility] Address [address] [address] Care Team Providers Care Nursing Attendant Name Role Phone Rl Medina MD Primary Care Provider [phone] Reason for Visit * Reason Comments Establish Care New patient, param al knee pain. Encounter Details Date Type Department Care Team (Latest Contact Info) Description 10/25/2018 11:40 AM UX SPECIALIST Office Visit [facility] [id number] [place] [phone] [place] [address] [address] Primary osteoarthritis of left knee (Primary Dx); [...] 86.2 kg (190 lb) 10/25/2018 12:22 PM UX SPECIALIST Height 175.3 cm (5' 9 ) 10/25/2018 12:22 PM UX SPECIALIST Body Mass Index 28.06 10/25/2018 12:22 PM UX SPECIALIST documented in this encounter Patient Instructions * Patient Instructions* Dara Felton - 10/25/2018 12:23 PM UX SPECIALIST Please call the office with any questions or concerns. SPECIALIST documented in this encounter Progress Notes * Jeremias Earl PA-C - 10/25/2018 12:51 PM CST Left nb-b , right cr tka resurfaced patella nsaid , SPECIALIST * Dara Felton - 10/25/2018 12:22 PM CST New patient, bilateral knee pain. 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 The left knee shows near xlvo-uy-[id number] degenerative change along the medial joint line with some moderate degenerative changes in the patellofemoral joint. IMPRESSION: Medium near [id number]-[id number] degenerative changes along the left medial joint [...] with this. JERI Dumont M.D. BERYLD/Delroy #: [id number] SPECIALIST documented in this encounter Procedure Notes * Suzanne Capone - 10/25/2018 12:17 PM CSTAssociated Order(s): XR KNEE BILAT 3VW Please see progress notes for result. SPECIALIST documented in this encounter Plan of Treatment Not on file documented as of this encounter Procedures Procedure Name Priority Date/Time Associated Diagnosis Comments XR KNEE BILAT 3VW Routine 10/25/2018 12: 16 PM UX SPECIALIST Pain in both knees, unspecified chronicity documented in this encounter Results * XR KNEE BILAT 3VW (10/25/2018 12:16 PM UX SPECIALIST) Anatomical Region Laterality Modality Lower Extremity Computed Radiogr aphy Narrative 11/12/2018 6:27 PM UX SPECIALIST Suzanne Capone ? 11/12/2018 ??6:27 PM Please see progress notes for result. Carlos Manuel Washington MD DIAGNOSTIC IMAGING O RDERABLES documented in this encounter Visit Diagnoses Diagnosis Primary osteoarthritis of left knee- Primary Primary localized osteoarthrosis, lower leg Pain in both knees, unspecified chronicity Presence of right artificial knee joint Knee joint replacement by other means documented in this encounter Care Teams Nursing Attendant Relationship Specialty Start Date End Date Rl Medina MD [address] [place] [phone] PCP - General Family Medicine 04/25/16 documented as of this encounter
--- OUTSIDE RECORDS SUMMARY | 2024-11-05 22:50 | XMS_ITS | Encounter Summary ---
Author Organization [facility] Address [address] [facility] [place] [address] [place] [address] Care Team Providers Care Furnace Tapper Name Role Phone Unavailable Primary Care Provider Unavailabl e Encounter Details Date Type Department Care Team (Late st Contact Info) Description 06/03/1999 Abstract [facility] [address] [place] [address] , Generic Conversion, Social History Tobacco Use Types Packs/Day Years Used Date Smoking Tobacco: Never Assessed Sex and Gender Information Value Date Recorded Sex Assigned at Not on file Legal Sex Male 11:34 PM MOBILE PET GROOMER Gender Identity Not on file Sexual Orientation Not on file documented as of this encounter Plan of Treatment Not on file documented as of this encounter Visit Diagnoses Not on filedocumented in this encounter
--- OUTSIDE RECORDS SUMMARY | 2024-11-05 22:50 | XMS_ITS | Encounter Summary ---
Author Organization [facility] Address [address] [facility] [place] [address] [place] [address] Care Team Providers Care Shoe Dresser Name Role Phone Unavailable Primary Care Provider Unavailabl e Encounter Details Date Type Department Care Team (Late st Contact Info) Description 05/09/[address] 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
--- OUTSIDE RECORDS SUMMARY | 2024-11-05 22:50 | XMS_ITS | Encounter Summary ---
Author Organization [facility] Address [address] [facility] [place] [address] [place] [address] Care Team Providers Care Promotions Assistant Name Role Phone SudeepRl campos Primary Care Provider [phone] Fransisco Heard MD Unavailable [phone] Encounter Details Date Type Department Care Team (Late st Contact Info) Description 10/14/2019 9:00 AM COLLECTIONS OFFICER Home Care Visit [facility] Home Care 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..] position. documented in this encounter Care Teams Promotions Assistant Relationship Specialty Start Date End Date Rl Medina DO [address] [place] [address] PCP - General FAMILY PRACTICE 10/01/19 Fransisco Heard MD [address] [place] [address] SURGERY 10/01/19 documented as of this encounter
--- OUTSIDE RECORDS SUMMARY | 2024-11-05 22:50 | XMS_ITS | Encounter Summary ---
Author Organization [facility] Address [address] [facility] 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
--- OUTSIDE RECORDS SUMMARY | 2024-11-05 22:50 | XMS_ITS | Encounter Summary ---
Author Organization [facility] Address [address] [facility] [place] [address] [place] [address] Care Team Providers Care Canvas Cutter Machine Name Role Phone SudeepRl campos Primary Care Provider [phone] Fransisco Heard MD Unavailable [phone] Encounter Details Date Type Department Care Team (Late st Contact Info) Description 10/10/2019 9:30 AM GROUP THERAPY COUNSELOR Home Care Visit [facility] Home Care [facility] [address] [place] [address] Lisa Lewis, PT PT HOME VISIT Social History Tobacco Use Types Packs/Day Years Used Date Smoking Tobacco: Never Assessed Sex and Gender Information Value Date Recorded Sex Assigned at Not on file 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 Sex Male 11:34 PM GROUP THERAPY COUNSELOR Gender Identity Not on file Sexual Orientation Not on file documented as of this encounter Last Filed Vital Signs Vital Sign Reading Time Taken Comments Blood Pressure 138/74 10/10/2019 12:00 AM GROUP THERAPY COUNSELOR Pulse 67 10/10/2019 12:00 AM GROUP THERAPY COUNSELOR Temperature 36.6 ??C (97.8 ??F) 10/10/2019 12:[address] Respiratory Rate 18 10/10/2019 12:00 AM GROUP THERAPY COUNSELOR Oxygen Saturation - - Inhaled Oxygen Concentration [...] services at provider of patients choice ( [facility] outpatient facility) Provide Continuity of Care Description: [...] plans for outpatient PT at discharge from counts include [facility] beds [facility]. Plan final visit this next Sunday [...] well. documented in this encounter Care Teams Canvas Cutter Machine Relationship Specialty Start Date End Date Rl Medina DO [address] [place] [address] PCP - General FAMILY PRACTICE 10/01/19 Fransisco Heard MD [facility] [place] [place] [place] [address] SURGERY 10/01/19 documented as of this encounter
--- OUTSIDE RECORDS SUMMARY | 2024-11-05 22:50 | XMS_ITS | Encounter Summary ---
Author Organization [facility] Address [address] [place] [address] [place] [address] Care Team Providers Care Gold Burnisher Name Role Phone SudeepRl campos Primary Care Provider [phone] Fransisco Heard MD Unavailable [phone] Encounter Details Date Type Department Care Team (Latest Contact Info) Description 10/07/2019 9:15 AM MANAGER PARK Home Care Visit [facility] Home Care [facility] [address] [place] [address] Lisa Lewis, PT PT INITIAL EVALUATION Social History Tobacco Use Types Packs/Day Years Used Date Smoking Tobacco: Never Assessed Sex and Gender Information Value Date Recorded Sex Assigned at Not on file Legal Sex Male 11:34 PM MANAGER PARK Gender Identity Not on file Sexual Orientation Not on file documented as of this encounter Last Filed Vital Signs Vital Sign Reading Time Taken Comments Blood Pressure 124/64 10/07/2019 12:00 AM MANAGER PARK Pulse 74 10/07/2019 12:00 AM MANAGER PARK Temperature 36.4 ??C (97.5 ??F) 10/07/2019 12:[address] Respiratory Rate 16 10/07/2019 12:00 AM MANAGER PARK Oxygen Saturation - - Inhaled Oxygen Concentration [...] understanding documented in this encounter Care Teams Gold Burnisher Relationship Specialty Start Date End Date Rl Medina DO [address] [place] [address] PCP - General FAMILY PRACTICE 10/01/19 Fransisco Heard MD [address] [place] [address] SURGERY 10/01/19 documented as of this encounter
--- OUTSIDE RECORDS SUMMARY | 2024-11-05 22:50 | XMS_ITS | Encounter Summary ---
Author Organization [facility] Address [address] [facility] [place] [address] [place] [address] Care Team Providers Care Computer Education Teacher Name Role Phone Rl Medina DO Primary Care Provider [phone] Fransisco Heard MD Unavailable [phone] Encounter Details Date Type Department Care Team (Late st Contact Info) Description 10/06/2019 Plan of Care Documentation [facility] Home Care [facility] [address] [place] [address] Social History Tobacco Use Types Packs/Day Years Used Date Smoking Tobacco: Never Assessed Sex and Gender Information Value Date Recorded Sex Assigned at Not on file 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
--- OUTSIDE RECORDS SUMMARY | 2024-11-05 22:50 | XMS_ITS | Encounter Summary ---
Author Organization [facility] Address [address] [facility] 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
--- OUTSIDE RECORDS SUMMARY | 2024-11-05 22:50 | XMS_ITS | Encounter Summary ---
Author Organization [facility] Address [address] [facility] 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
--- OUTSIDE RECORDS SUMMARY | 2024-11-05 22:50 | XMS_ITS | Patient Health Summary ---
Author Organization [facility] Address [address] [place] [address] Care Team Providers Care It Intern Name Role Phone Rl Medina MD Primary Care Provider [phone] Note from [facility],non-owned Affiliates and Associated Physician Practices is amultiple site organization consisting of ambulatory clinics and hospital sitesin [place], [place], [place] and [place]. This disclosure is being madepursuant to the Care Everywhere program and may not contain all information available regarding this patient. Last updated 18.[facility] [employer] Allergies No known active allergies Medications * [...] 86.2 kg (190 lb) 10/25/2018 12:22 PM SOLE RUFFER Height 175.3 cm (5' 9 ) 10/25/2018 12:22 PM SOLE RUFFER Body Mass Index 28.06 10/25/2018 12:22 PM SOLE RUFFER Procedures * XR KNEE BILAT 3VW(Performed 10/25/2018) Performed for Pain in both knees, unspecified chronicity * C-REACTIVE PROTEIN(Performed 04/25/2016) Performed for Pre-op testing * ERYTHROCYTE SEDIMENTATION RATE(Performed 04/25/2016) Performed for Pre-op testing Results * XR KNEE BILAT 3VW (10/25/2018 12:16 PM SOLE RUFFER) Anatomical Region Laterality Modality Lower Extremity Computed Radiogr aphy Narrative 11/12/2018 6:27 PM SOLE RUFFER Suzanne Capone ? 11/12/2018 ??6:27 PM Please see progress notes for result. Carlos Manuel [place] MD DIAGNOSTIC IMAGING O RDERABLES * C-REACTIVE PROTEIN (04/25/2016 12:28 PM CDT) C-Reactive Protein <0.29 <0.30 mg/dL 04/25/2016 12:59 PM CDT [facility] Blood BLOOD SPECIMEN / Unknown Lab Venipuncture / Unknown 04/25/2016 12:28 PM CDT 04/25/2016 12:28 PM CDT Madhav Frank MD LAB - CHEMISTRY JOSE PRUITT [facility] [address] [place] [address] * SED RATE WESTERGREN (04/25/2016 12:28 PM CDT) Erythrocyte Sedimentation Rate [facility] 6 0 - 20 mm/hr 04/25/2016 12:57 PM CDT [facility] Blood BLOOD SPECIMEN / Unknown Lab Venipuncture / Unknown 04/25/2016 12:28 PM CDT 04/25/2016 12:28 PM CDT Madhav Frank MD LAB - HEMATOLOGY ORD ERABLES [facility] [address] [place] [address] Care Teams It Intern Relationship Specialty Start Date End Date Rl Medina MD [address] [place] [phone] PCP - General Family Medicine 04/25/16
--- OUTSIDE RECORDS SUMMARY | 2024-11-05 22:50 | XMS_ITS | Encounter Summary ---
Author Organization [facility] Address [address] [place] [address] [place] [address] Care Team Providers Care Embossing Machine Operator Name Role Phone Unavailable Primary Care Provider Unavailabl e Encounter Details Date Type Department Care Team (Late st Contact Info) Description 04/05/[address] 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
--- OUTSIDE RECORDS SUMMARY | 2024-11-05 22:50 | XMS_ITS | Encounter Summary ---
Author Organization [facility] Address [address] [place] [address] [place] [address] Care Team Providers Care Manager Human Capital Name Role Phone SudeepRl campos Primary Care Provider [phone] Fransisco Heard MD Unavailable [phone] Encounter Details Date Type Department Care Team (Late st Contact Info) Description 10/16/2019 8:15 AM OCEANOGRAPHER PHYSICAL Home Care Visit [facility] Home Care [facility] [place] [address] [place] [address] Lisa [place], PT PT OASIS DISCHARGE Social History Tobacco Use Types Packs/Day Years Used Date Smoking Tobacco: Never Assessed Sex and Gender Information Value Date Recorded Sex Assigned at Not on file Legal Sex Male 11:34 PM OCEANOGRAPHER PHYSICAL Gender Identity Not on file Sexual Orientation Not on file documented as of this encounter Last Filed Vital Signs Vital Sign Reading Time Taken Comments Blood Pressure 128/76 10/16/2019 12:00 AM OCEANOGRAPHER PHYSICAL Pulse - - Temperature 36.9 ??C (98.4 ??F) 10/16/2019 12:[address] Respiratory Rate 18 10/16/2019 12:00 AM OCEANOGRAPHER PHYSICAL Oxygen Saturation - - Inhaled Oxygen Concentration [...] exercise. documented in this encounter Care Teams Manager Human Capital Relationship Specialty Start Date End Date Rl Medina DO [address] [place] [address] PCP - General FAMILY PRACTICE 10/01/19 Fransisco Heard MD [address] [place] [address] SURGERY 10/01/19 documented as of this encounter
--- OUTSIDE RECORDS SUMMARY | 2024-11-05 22:50 | XMS_ITS | Encounter Summary ---
Author Organization [facility] Address [address] [facility] 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
--- OUTSIDE RECORDS SUMMARY | 2024-11-05 22:50 | XMS_ITS | Encounter Summary ---
Author Organization [facility] Address [address] [facility] [place] [address] [place] [address] Care Team Providers Care Administrative Job Titles Name Role Phone Unavailable Primary Care Provider Unavailabl e Encounter Details Date Type Department Care Team (Late st Contact Info) Description 01/31/[address] 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
--- OUTSIDE RECORDS SUMMARY | 2024-11-05 22:50 | XMS_ITS | Referral Summary ---
Author Organization [facility] Address [address] [facility] [place] [address] Care Team Providers Care Bee Worker Name Role Phone Rl Medina MD Primary Care Provider [phone] Source Comments [facility],non-owned Affiliates and Associated Physician Practices is amultiple site organization consisting of ambulatory clinics and hospital sitesin [place], [place], [place] and [place]. This disclosure is being madepursuant to the Care Everywhere program and may not contain all information available regarding this patient. Last updated 18.[facility] Allergies No known active allergies Medications * [...] 86.2 kg (190 lb) 10/25/2018 12:22 PM CAREER SERVICES COORDINATOR Height 175.3 cm (5' 9 ) 10/25/2018 12:22 PM CAREER SERVICES COORDINATOR Body Mass Index 28.06 10/25/2018 12:22 PM CAREER SERVICES COORDINATOR Plan of Treatment Not on file Care Teams Bee Worker Relationship Specialty Start Date End Date Rl Medina MD [address] [place] [phone] PCP - General Family Medicine 04/25/16
--- OUTSIDE RECORDS SUMMARY | 2024-11-05 22:50 | XMS_ITS | Encounter Summary ---
Author Organization [facility] Health Address [address] [facility] [place] [address] Care Team Providers Care Senior Java J2Ee Developer Name Role Phone Rl Medina MD Primary Care Provider [phone] Encounter Details Date Type Department Care Team (Latest Contact Info) Description 04/25/2016 11:55 AM CDT - 04/25/2016 11:59 PM CDT Hospital Encounter [facility] [address] [address] Madhav Frank MD [address] [facility] [address] [place] [phone] Discharge Disposition: Home or Self Care Social [...] <0.29 <0.30 mg/dL 04/25/2016 12:59 PM CDT [facility] Blood BLOOD SPECIMEN / Unknown Lab Venipuncture / Unknown 04/25/2016 12:28 PM CDT 04/25/2016 12:28 PM CDT Madhav Frank MD LAB - CHEMISTRY ORDE RABFLOR Performing Organization Address City/[facility]/ZIP Co de Phone Number [facility] [address] [phone] * SED RATE WESTERGREN (04/25/2016 12:28 PM CDT) Erythrocyte Sedimentation Rate Westergren 6 0 - 20 mm/hr 04/25/2016 12:57 PM CDT [facility] Blood BLOOD SPECIMEN / Unknown Lab Venipuncture / Unknown 04/25/2016 12:28 PM CDT 04/25/2016 12:28 PM CDT Madhav Frank MD LAB - HEMATOLOGY ORD ERABLES Performing Organization Address City/[facility]/ZIP Co de Phone Number [facility] [address] [address] documented in this encounter Visit Diagnoses Diagnosis Pre-op testing- Primary Preoperative examination, unspecified documented in this encounter Care Teams Senior Java J2Ee Developer Relationship Specialty Start Date End Date Rl Medina MD [address] [place] [phone] PCP - General Family Medicine 04/25/16 documented as of this encounter
--- OUTSIDE RECORDS SUMMARY | 2024-11-05 22:50 | XMS_ITS | Encounter Summary ---
Author Organization [facility] Address [address] [place] [address] [place] [address] Care Team Providers Care Microsoft Dynamics Manager Architect Name Role Phone Unavailable Primary Care Provider Unavailabl e Encounter Details Date Type Department Care Team (Late st Contact Info) Description 11/09/2000 Abstract [facility] [address] [place] [address] Francisco Javier Gar MD [address] [place], [place] [address] Social History Tobacco Use Types Packs/Day Years Used Date Smoking Tobacco: Never Assessed Sex and Gender Information Value Date Recorded Sex Assigned at Not on file Legal Sex Male 11:34 PM MANAGEMENT ASSOCIATE Gender Identity Not on file Sexual Orientation Not on file documented as of this encounter Plan of Treatment Not on file documented as of this encounter Visit Diagnoses Not on filedocumented in this encounter
--- OUTSIDE RECORDS SUMMARY | 2024-11-05 22:50 | XMS_ITS | Encounter Summary ---
Author Organization [facility] Address [address] [facility] [place] [address] [place] [address] Care Team Providers Care Tabular Typist Name Role Phone SudeepRl campos Primary Care Provider [phone] Fransisco Heard MD Unavailable [phone] Encounter Details Date Type Department Care Team (Late st Contact Info) Description 10/09/2019 8:00 PM PAINTER BOTTOM Home Care Visit [facility] Home Care [facility] [address] [place] [address] Mily Becerril RN [address] [place] [address] SN DISCIPLINE DISCHARGE Social History Tobacco Use Types Packs/Day Years Used Date Smoking Tobacco: Never Assessed Sex and Gender Information Value Date Recorded Sex Assigned at Not on file Legal Sex Male 11:34 PM PAINTER BOTTOM Gender Identity Not on file Sexual Orientation Not on file documented as of this encounter Plan of Treatment Not on file documented as of this encounter Visit Diagnoses Not on filedocumented in this encounter Home Health Visit - Care Plan Visit Details Visit Type -SN - Discipline Discharge Discipline -Detention Problems Problem Description Start Date Status Goals Interve ntions Fall Precautions Disciplines: Detention Patient at risk for falls or has had recent fall occurrence(s). 10/06/2019 Resolved on 10/09/2019 1 goal linked to scheduled/documen felipe intervention 1 goal intervention scheduled/document ed in this visit Discharge Planning Disciplines: Detention Discharge Planning 10/06/2019 Resolved on 10/09/2019 1 goal linked to scheduled/documen felipe intervention 1 goal intervention scheduled/document ed in this visit Care Coordination Disciplines: Detention Management and coordination of patient care 10/06/2019 Resolved on 10/09/2019 1 goal linked to scheduled/documen felipe intervention 1 goal intervention scheduled/document ed in this visit A Plan for Next Visit Disciplines: Detention Plan for next visit 10/06/2019 Resolved on 10/09/2019 1 goal linked to scheduled/documen felipe intervention 1 goal intervention scheduled/document ed in this visit Home Safety Disciplines: Detention Management and evaluation of patient's home environment 10/06/2019 Resolved on 10/09/2019 1 goal linked to scheduled/documen felipe intervention 1 goal intervention scheduled/document ed in this visit Physical Discomfort Disciplines: Detention Alteration in comfort 10/06/2019 Resolved on 10/09/2019 1 goal linked to scheduled/documen felipe intervention 1 goal intervention scheduled/document ed in this visit Medications Disciplines: Detention Management of home medications 10/06/2019 Resolved on 10/09/2019 1 goal linked to scheduled/documen felipe intervention 2 goal interventions scheduled/document ed in this visit Pulse Oximetry Disciplines: Detention Skilled assessment and monitoring of O2 saturations. 10/06/2019 Resolved on 10/09/2019 1 goal linked to scheduled/documen felipe intervention 1 goal intervention scheduled/document ed in this visit Wound Care Disciplines: Detention Alteration in skin integrity 10/06/2019 Resolved on [...] or injuries, through end of plan of long term Safety No Pain Reduced or Controlled Description: [...] Scheduled documented in this encounter Care Teams Tabular Typist Relationship Specialty Start Date End Date Rl Medina DO [address] [place] [address] PCP - General FAMILY PRACTICE 10/01/19 Fransisco Heard MD [address] [place] [address] SURGERY 10/01/19 documented as of this encounter
--- OUTSIDE RECORDS SUMMARY | 2024-11-05 22:50 | XMS_ITS ---
Author Organization Unknown Address [address] [place] [phone] Phone Care Team Providers Care Engine Lathe Operator Name Role Phone REGULO DOTY Attending Unavailable [...] Results PROTIME - Collect Date/Time: 11/07/2023 19:10 [facility] ID: [id number] [address] [place] [address], [id number] LOINC: 02671-9 Test Value Unit Reference Range Code Code System Flag PT 10.8 Sec L=9.7 H=11.7 62240-8 LOINC INR 1.0 Sec L=0.9 H=1.1 95771-8 LOINC PTT - Collect Date/Time: 01/2024 19:10 [facility] ID: [id number] [address] [place] [address], [phone] LOINC: 63570-3 Test Value Unit Reference Range Code Code System Flag PTT 29.0 Sec L=23.0 H=31.2 CBC W/ DIFF - Collect Date/T payton: 11/07/2023 19:10 [facility] ID: [id number] [address] [place], [place], [id number] LOINC: 63055-1 Test Value Unit Reference Range Code Code System Flag WBC 13.4 10^3uL L=4.8 H=10.8 H RBC 3.22 10^6uL L=4.60 H=6.20 L HEMOGLOBIN 9.8 g/dL L=14.0 H=18.0 718-7 LOINC L HEMATOCRIT 30.7 VOL% L=42.0 H=52.0 4544-3 LOINC L MCV 95.3 fL L=80.0 H=94.0 H MCH 30.4 pg L=27.0 H=32.0 MCHC 31.9 g/dL L=32.0 H=36.0 L PLATELETS 346 10^3uL L=100 H=400 96480-2 LOINC RDW 13.7 % L=11.7 H=15.5 %GRAN 83.5 % L=40.0 H=70.0 31979-1 LOINC H %LYMPH 8.6 % L=20.0 H=45.0 736-9 LOINC L %MONO 6.5 % L=2.0 H=10.0 81502-9 LOINC %EOS 0.7 % L=0.0 H=6.0 713-8 LOINC %BASO 0.3 % L=0.0 H=3.0 706-2 LOINC #NEUT 11.1 10^3uL L=1.9 H=7.6 95048-4 LOINC H #LYMPH 1.2 10^3uL L=0.9 H=4.9 15463-6 LOINC #MONO 0.9 10^3uL L=0.1 H=0.9 38117-4 LOINC #EOS 0.1 10^3uL L=0.0 H=0.6 712-0 LOINC #BASO 0.04 10^3uL L=0.00 H=0.10 37358-0 LOINC #IM GRANS 0.1 10^3uL L=0.0 H=7.0 35983-3 LOINC %IM GRANS 0.4 % L=0.0 H=5.0 22449-9 LOINC %NRB 0.0 L=0.0 H=0.2 65567-3 LOINC #NRB 0.000 L=0.000 H=0.012 16397-0 LOINC MANUAL DIFF NOT INDICATED RBC MORPH NOT INDICATED COMPREHENSIVE METABOLIC PANE L - Collect Date/Time: 11/07/2023 19:10 [facility] ID: [id number] [address] [place], [place], [id number] LOINC: 89525-9 Test Value Unit Reference Range Code Code [...] 8-9 LOINC ANION GAP 15 L=10 H=20 43871-1 LOINC OSMOLALITY 285 mOs/kG L=280 H=296 60939-7 LOINC BUN/CREAT 14.4 3097-3 LOINC CALCIUM 9.0 mg/dL L=8.3 H=10.5 99122-9 LOINC AST 24 U/L L=15 H=46 1920-8 LOINC ALT 34 U/L L=9 H=72 1742-6 LOINC ALKALINE PHOS 148 U/L L=38 H=126 6768-6 LOINC H TOTAL BILI 0.7 mg/dL L=0.2 H=1.3 1975-2 LOINC ALBUMIN 3.7 G/dL L=3.5 H=5.0 1751-7 LOINC TOTAL PROTEIN 7.9 g/L L=6.3 H=8.2 2885-2 LOINC A/G RATIO 0.9 00991-5 LOINC AGE 73 18687-9 LOINC eGFR NON-AFR 88 ml/min eGFR AFR AMER 106 ml/min Social History Type Status Start Date End Date Code Code Syst em Smoking History Former smoker 4582271 SNOMED CT Sex Male Hospital Discharge Instructions [...] Code System No Known Allergies Moderate Active 025513425 SN OMED-CT Plan of Treatment US Kidney & Bladder (48764) 06/28/2021 MRI Lumbar WO Contrast (97513) 08/30/20 23 Encounters Encounter Diagnosis Start Date Code Code Sys tem Anesthesia of skin 11/07/2023 SNOMED-CT Personal Care Team Section Performer Name Performer Role Active Date Inactive YUNIOR Cuellar PCP - Primary care physician 2022-10-2 6
--- OUTSIDE RECORDS SUMMARY | 2024-11-05 22:50 | XMS_ITS | Encounter Summary ---
Author Organization [facility] Address [address] [facility] 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
--- OUTSIDE RECORDS SUMMARY | 2024-11-05 22:50 | XMS_ITS | Encounter Summary ---
Author Organization [facility] Address [address] [place] [address] [place] [address] Care Team Providers Care Farm Machinery Assembler Name Role Phone SudeepRl campos Primary Care Provider [phone] Fransisco Heard MD Unavailable [phone] Reason for Visit * Reason Comments Total Knee Arth Encounter Details Date Type Department Care Team (Late st Contact Info) Description 10/06/2019 2:00 PM FERRY ENGINEER Home Care Visit [facility] Home Care [facility] [address] [place], [place] [address] Mily Becerril, RN [address] [place] [address] SN OASIS START OF CARE Social History Tobacco Use Types Packs/Day Years Used Date Smoking Tobacco: Never Assessed Sex and Gender Information Value Date Recorded Sex Assigned at Not on file Legal Sex Male 11:34 PM FERRY ENGINEER Gender Identity Not on file Sexual Orientation Not on file documented as of this encounter Last Filed Vital Signs Vital Sign Reading Time Taken Comments Blood Pressure 126/66 10/06/2019 12:50 PM FERRY ENGINEER Pulse 68 10/06/2019 12:50 PM FERRY ENGINEER Temperature 36.6 ??C (97.8 ??F) 10/06/2019 12:[address] Respiratory Rate 16 10/06/2019 12:50 PM FERRY ENGINEER Oxygen Saturation 99% 10/06/2019 12:50 PM FERRY ENGINEER Inhaled Oxygen Concentration - - Weight - - Height - - Body Mass Index - - documented in this encounter Plan of Treatment Not on file documented as of this encounter Visit Diagnoses Not on filedocumented in this encounter Home Health Visit - Care Plan Visit Details Visit Type -SN - OASIS Start of Care Discipline -Retirement Problems Problem Description Start Date Status Goals Interve ntions Fall Precautions Disciplines: Retirement Patient at risk for falls or has had recent fall occurrence(s). 10/06/2019 Active 1 goal linked to scheduled/documen felipe intervention 2 goal interventions scheduled/document ed in this visit Discharge Planning Disciplines: Retirement Discharge Planning 10/06/2019 Active 1 goal linked to scheduled/documen felipe intervention 1 goal intervention scheduled/document ed in this visit Care Coordination Disciplines: Retirement Management and coordination of patient care 10/06/2019 Active 1 goal linked to scheduled/documen felipe intervention 1 goal intervention scheduled/document ed in this visit A Plan for Next Visit Disciplines: Retirement Plan for next visit 10/06/2019 Active 1 goal linked to scheduled/documen felipe intervention 1 goal intervention scheduled/document ed in this visit Home Safety Disciplines: Retirement Management and evaluation of patient's home environment 10/06/2019 Active 1 goal linked to scheduled/documen felipe intervention 1 goal intervention scheduled/document ed in this visit Physical Discomfort Disciplines: Retirement Alteration in comfort 10/06/2019 Active 1 goal linked to scheduled/documen felipe intervention 1 goal intervention scheduled/document ed in this visit Medications Disciplines: Retirement Management of home medications 10/06/2019 Active 1 goal linked to scheduled/documen felipe intervention 2 goal interventions scheduled/document ed in this visit Pulse Oximetry Disciplines: Retirement Skilled assessment and monitoring of O2 saturations. 10/06/2019 Active 1 goal linked to scheduled/documen felipe intervention 1 goal intervention scheduled/document ed in this visit Wound Care Disciplines: Retirement Alteration in skin integrity 10/06/2019 Active 1 [...] compliance documented in this encounter Care Teams Farm Machinery Assembler Relationship Specialty Start Date End Date Rl Medina DO [address] [place] [address] PCP - General FAMILY PRACTICE 10/01/[address] [facility] [place] [address] SURGERY 10/01/19 documented as of this encounter
--- OUTSIDE RECORDS SUMMARY | 2024-11-05 22:50 | XMS_ITS | Encounter Summary ---
Author Organization [facility] Address [address] [facility] [place] [address] [place] [address] Care Team Providers Care Shoe Stitcher Odd Name Role Phone SudeepRl campos Primary Care Provider [phone] Fransisco Heard MD Unavailable [phone] Encounter Details Date Type Department Care Team (Late st Contact Info) Description 10/09/2019 9:30 AM MANAGER ARCHITECTURE Home Care Visit [facility] Home Care [facility] [address] [place] [address] Lisa Lewis, PT PT HOME VISIT Social History Tobacco Use Types Packs/Day Years Used Date Smoking Tobacco: Never Assessed Sex and Gender Information Value Date Recorded Sex Assigned at Not on file Legal Sex Male 11:34 PM MANAGER ARCHITECTURE Gender Identity Not on file Sexual Orientation Not on file documented as of this encounter Last Filed Vital Signs Vital Sign Reading Time Taken Comments Blood Pressure 136/74 10/09/2019 12:00 AM MANAGER ARCHITECTURE Pulse 62 10/09/2019 12:00 AM MANAGER ARCHITECTURE Temperature 36.7 ??C (98 ??F) 10/09/2019 12:00 AM MANAGER ARCHITECTURE Respiratory Rate 18 10/09/2019 12:00 AM MANAGER ARCHITECTURE Oxygen Saturation - - Inhaled Oxygen Concentration [...] continue through 10[facility]16 [facility]); pt aware and [...] quads documented in this encounter Care Teams Shoe Stitcher Odd Relationship Specialty Start Date End Date Rl Medina DO [address] [place] [address] PCP - General FAMILY PRACTICE 10/01/19 Fransisco Heard MD [address] [place] [address] SURGERY 10/01/19 documented as of this encounter
--- OUTSIDE RECORDS SUMMARY | 2024-11-05 22:50 | XMS_ITS | Encounter Summary ---
Author Organization [facility] Address [address] [facility] [place] [address] [place] [address] Care Team Providers Care Database Consultant Name Role Phone Rl Medina DO Primary Care Provider [phone] Fransisco Heard MD Unavailable [phone] Encounter Details Date Type Department Care Team (Late st Contact Info) Description 10/09/2019 Home Care Visit [facility] Home Care [facility] [address] [place] [address] Lisa Lewis, PT CASE COMMUNICATION Social History Tobacco Use Types Packs/Day Years Used Date Smoking Tobacco: Never Assessed Sex and Gender Information Value Date Recorded Sex Assigned at Not on file Legal Sex 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
--- OUTSIDE RECORDS SUMMARY | 2024-11-05 22:50 | XMS_ITS | Encounter Summary ---
Author Organization [facility] Address [address] [facility] [place] [address] [place] [address] Care Team Providers Care Engineering Model Maker Name Role Phone Unavailable Primary Care Provider Unavailabl e Encounter Details Date Type Department Care Team (Late st Contact Info) Description 12/13/[address] 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
--- OUTSIDE RECORDS SUMMARY | 2024-11-05 22:50 | XMS_ITS | Clinical Summary ---
Author Organization [facility] Address [address] [place] [address] [place] [address] Care Team Providers Care Fire Investigator Name Role Phone SudeepRl campos Primary Care Provider [phone] Fransisco Heard MD Unavailable [phone] Medications omeprazole 20 MG capsuleIndicat ions:gastric reflux [...] on file Legal Sex Male 11:34 PM BOILER CONTROL ROOM OPERATOR Gender Identity Not on file Sexual Orientation Not on file Last Filed Vital Signs Vital Sign Reading Time Taken Comments Blood Pressure 128/76 10/16/2019 12:00 AM BOILER CONTROL ROOM OPERATOR Pulse 60 10/14/2019 12:00 AM BOILER CONTROL ROOM OPERATOR Temperature 36.9 ??C (98.4 ??F) 10/16/2019 12:[address] Respiratory Rate 18 10/16/2019 12:00 AM BOILER CONTROL ROOM OPERATOR Oxygen Saturation 99% 10/06/2019 12:50 PM BOILER CONTROL ROOM OPERATOR Inhaled Oxygen Concentration - - Weight [...] complete this topic Insurance MEDICARE Care Teams Fire Investigator Relationship Specialty Start Date End Date Rl Medina DO [address] [place] [address] PCP - General FAMILY PRACTICE 10/01/19 Fransisco Heard MD [address] [place] [address] SURGERY 10/01/19
--- OUTSIDE RECORDS SUMMARY | 2024-11-05 22:54 | XMS_ITS | Encounter Summary ---
Author Organization [facility] Healthcare Address [address] [place] [address] Care Team Providers Care Unarmed Security Officer Name Role Phone No, Physician Primary Care Provider [phone] Encounter Details Date Type Department Care Team (Late st Contact Info) Description 10/06/2024 Telephone [facility] Radiology [address] [place] [address] Viry tSroud RN Social History Tobacco Use Types Packs/Day Years Used Date Smoking Tobacco: Former Cigarettes 1 11 969 1979 Passive Smoke Exposure: Never Smokeless Tobacco: Never Alcohol Use Standard Drinks/Week Comments Yes 14 (1 standard drink = 0.6 oz pu re alcohol) social AHC Utilities Answer Date Recorded In the past 12 months has [employer], gas, oil, or water [employer] threatened to shut off services in your [...] often do you attend chur ch or restorationism services? 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 Crum - Stents are wide open and superficial veins have no reflux. His swelling is likely from chronic deconditioning. Nothing to do. Thanks! Pt's made aware, voiced understanding. Will call as needed. TTER SETTER UP documented in this encounter Plan of Treatment Not on file documented as of this encounter Visit Diagnoses Not on filedocumented in this encounter Care Teams Unarmed Security Officer Relationship Specialty Start Date End Date No, Physician PCP - General 05/26/24 documented as of this encounter
--- OUTSIDE RECORDS SUMMARY | 2024-11-05 22:54 | XMS_ITS | Encounter Summary ---
Author Organization [facility] Healthcare Address [address] [place] [address] Care Team Providers Care Drawstring Knotter Name Role Phone No, Physician Primary Care Provider [phone] Encounter Details Date Type Department Care Team (Late st Contact Info) Description 09/16/2024 Telephone [facility] Imaging [address] [address] [facility] [place] [address] Leticia Donahue RN Social History Tobacco Use Types Packs/Day Years Used Date Smoking Tobacco: Former Cigarettes 1 11 969 - 1979 Passive Smoke Exposure: Never Smokeless Tobacco: Never Alcohol Use Standard Drinks/Week Comments Yes 14 (1 standard drink = 0.6 oz pu re alcohol) social C Utilities Answer Date Recorded In the past 12 months has [employer], gas, oil, or water [place] [employer] threatened to shut off services in [...] attend chur ch or gnosticism services? 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 Spoke to patient's Val who takes care of all the appointments. Reviewed with Val that procedure is scheduled for 09/23/24 at 12pm. Arrival time is 11am with street flusher driver ( will transport). Patient is on Xarelto and will need to hold itfor 2 days prior to procedure with the last dose being Sunday09/20/24. I also called facility ([facility]) where patient resides and spoke to nurse Patino and relayed all the above information. EXAMINER documented in this encounter Plan of Treatment Not on file documented as of this encounter Visit Diagnoses Not on filedocumented in this encounter Care Teams Drawstring Knotter Relationship Specialty Start Date End Date No, Physician PCP - General 05/26/24 documented as of this encounter
--- OUTSIDE RECORDS SUMMARY | 2024-11-05 22:54 | XMS_ITS ---
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 Na low 130s over the past week, has improved with improved oral intake and remains in normal range with initiation of diuretic therapy. - CTM on lasix Elevated transaminase level 11/29/2023 Assessment & Plan (12/04/2023 11:59 AM MIDWIFE): - AST 65, ALT 80, new on arrival- Unclear etiology at this time - possibly from IVC compression/distention in setting of potential thrombi? - Improving - will hold off on further imaging Lower extremity edema 11/29/2023 Assessment & Plan (12/01/2023 12:38 PM MIDWIFE): - Eval/mgt per above. NT-proBNP 105. Scrotal swelling 11/29/2023 Assessment & Plan (12/10/2023 2:44 PM MIDWIFE): - In setting of presumed DVT - no evidence of infection on exam - Scrotal Sling - Maintain sofia catheter - DVT mgt per above - for edema, will continue IV lasix 40 mg BID, monitor electrolytes - at discharge will discharge on PO lasix 40 mg BID Seizure 11/29/2023 Assessment & Plan (11/29/2023 7:16 PM MIDWIFE): - Patient developed reported seizure on 10/23 during or prior to cardiac arrest with bilateral SDH noted on imaging - placed on keppra through follow-up with NSGY next month Prediabetes 11/29/2023 Assessment & Plan (11/29/2023 7:22 PM MIDWIFE): - Was on mounjaro as outpatient - has required intermittent SSI at [facility] - Diabetic diet, SSI ordered Kidney stone 11/09/2023 Paraplegia 11/07/2023 Assessment & Plan (11/29/2023 7:15 PM MIDWIFE): - Patient with paralysis of LE following recent spinal hematoma s/p emergent evacuation on 11/07 - Ongoing 11/09 strength of LE, sensation intact - Fall precautions Pulmonary embolism 10/26/2023 Assessment & Plan (11/29/2023 7:16 PM MIDWIFE): - Eval/mgt per above Assessment & Plan (10/26/2023 5:11 PM MIDWIFE): Patient with new PE on CT PE [...] 10/15/2023 Assessment & Plan (10/20/2023 2:57 PM MIDWIFE): Likely post procedure complication. Urology following - CT urogram on 10/16 notes presence of L perinephric hematoma - Continue to trend white count, renal function and fever curve Ureteral colic 10/13/2023 UTI (urinary tract infection) 10/13/2023 Assessment & Plan (12/10/2023 2:43 PM MIDWIFE): - Patient diagnosed with UTI in setting [...] urology. Assessment & Plan (10/20/2023 2:58 PM MIDWIFE): - Complicated UTI with the presence of left ureteral stone and Pyelitis - urine culture grew E-coli which is pansusceptible. - Discussion with urology and orthopedic surgery: continue Keflex 500 mg q6hr as it appears patient will stay in-house until OR on 10/22-10/23 -Antibiotics as above. Hydronephrosis with urinary obstruction due to renal calculus 10/12/2023 Assessment & Plan (12/07/2023 1:48 PM MIDWIFE): - Patient with noted progressed hydronephrosis during [...] back Assessment & Plan (10/19/2023 12:54 PM MIDWIFE): Presented with generalized weakness with fever and [...] 10/08/2023 Assessment & Plan (10/20/2023 2:57 PM MIDWIFE): He has been planned for plan for [...] (10/18/2022): Added automatically from request for surgery [id number] Bladder neck obstruction 10/17/2022 Lesion of urinary bladder 10/17/2022 Prostate cancer 10/17/2022 Assessment & Plan (11/29/2023 7:14 PM MIDWIFE): - s/p prostatectomy Assessment & Plan (10/13/2023 5:39 AM MIDWIFE): S/p postprostatectomy HTN (hypertension) 10/10/2021 Assessment & Plan (11/29/2023 7:14 PM MIDWIFE): - Cont diltiazem - home ARB has been on hold at [facility] - continue to hold here initially Assessment & Plan (10/15/2023 9:11 AM MIDWIFE): Hold home irbesartan Restart diltiazem xl Risk factors for obstructive sleep apnea 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 Past Plans No past plan information found. Radiation Treatments * No radiation treatments are documented for this patient in [facility]. Treatments may have been administered in another system. Lifetime Dose Tracking * Chemical Lifetime Dose Automatic Entry Manual Entr y Fluoro Time 71.903 minutes 71.903 minutes 0 minutes Air kerma at the reference point (Ka,r) 2,101.35 mGy 2 ,101.35 mGy 0 mGy DLP 14,575 mGycm 14,575 mGycm 0 mGycm
--- OUTSIDE RECORDS SUMMARY | 2024-11-05 22:54 | XMS_ITS | Encounter Summary ---
Author Organization [facility] Healthcare Address [address] [place] [address] Care Team Providers Care Docketing Specialist Name Role Phone No, Physician Primary Care Provider [phone] Reason for Referral * Diagnostic Imaging (Routine) - Authorized Specialty Diagnoses / Procedures Referred By Contac t Referred To Contact Radiology Diagnoses Hydronephrosis with urinary obstruction due to renal calculus Procedures IR Change Catheter Bladder, Nazario Saleem PA [facility] [address] [address] Phone: tel: fax: [place] [address] [place] [address] Referral ID Status Reason Start Date Expiration Date V isits Requested Visits Authorized [id number] Authorized 10/13/2024 11/12/2025 1 1 FORMER Reason for Visit * Diagnostic Imaging (Routine) - Closed Specialty Diagnoses / Procedures Referred By Contac t Referred To Contact Radiology Diagnoses Hydronephrosis with urinary obstruction due to renal calculus Procedures IR Inject Abscess Catheter IR Change Catheter BladderMarcela Pavan Kumar, MD [address] [address] Phone: tel: fax: [place] [phone] [place] [address] Referral ID Status Reason Start Date Expiration Date Visits Re quested Visits Authorized [id number] Closed 09/23/2024 10/23/2025 1 1 Encounter Details Date Type Department Care Team (Latest Contact Info) Description 10/13/2024 8:30 AM SKIN FORMER - 10/13/2024 11:59 PM SKIN FORMER Hospital Encounter [facility] Imaging [address] [address] Krista Aleman RN Despins, Jo Ann Torres, [...] Recorded In the past 12 months has [employer], gas, oil, or water [employer] threatened to shut off services in your [...] How often do you attend chur or faith services? 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 Not on file Not on file documented as of this encounter Last Filed Vital Signs Vital Sign Reading Time Taken Comments Blood Pressure 141/78 10/13/2024 8:38 AM SKIN FORMER Pulse 70 10/13/2024 8:38 AM SKIN FORMER Temperature 36.9 ??C (98.5 ??F) 10/13/2024 8:38 AM CS T Respiratory Rate 16 10/13/2024 8:38 AM SKIN FORMER Oxygen Saturation 98% 10/13/2024 8:38 AM SKIN FORMER Inhaled Oxygen Concentration - - Weight - - Height - - Body Mass Index - - documented in this encounter Discharge Instructions * Discharge Instructions* Nazario Peterson PA - 10/13/2024 9:15 AM SKIN FORMER Interventional Radiology Outpatient Discharge Instructions/Note Diagnosis:bloody urine [...] draining. To contact an Interventional Radiologist at [facility] call [phone] Sunday through Sunday from 7:30am-4:30pm. At all other times call [phone] and ask that the Interventional Radiologist be paged. To contact an Interventional Radiologist at [facility] call [phone] Sunday through Sunday from 7:30am-3:30pm. To contact an Interventional Radiologist RN at [facility] call [phone] Sunday through Sunday from 7:00 am-5:00 pm. To schedule an appointment with Interventional Radiology at [facility] call [phone] Sunday through Sunday from 7:30 am-4:00 pm. [...] at Please come to: [] 3rd Floor [facility] [] 4th floor [facility] [] [facility] [] [facility] Please call [phone] if you need to schedule a follow up appointment. FORMER FORMER documented in this encounter Medications at Time [...] ound healing Take 1 tablet by mouth seat builder before breakfast ondansetron ODT (ZOFRAN-ODT) 4 mg [...] 1 tablet (20 mEq total) by mouth seat builder before breakfast 4 senna-docusate (PERICOLACE) 8.6-50 mg [...] Nazario Peterson PA - 10/13/2024 9:00 AM SKIN FORMER Radiology Brief Post Procedure Note Provider: BONITA Crespo Sedation/Anesthesia: None Pre-Op/Pre-Procedure Diagnosis: neurogenic bladder Post-Op/Post-Procedure Diagnosis: same Procedure Performed: SPT check Procedure Findings: tube in appropriate position. No sign of infection Complications: None Estimated Blood Loss: None Specimens: None Condition: Stable Full report to follow. FORMER documented in this encounter Plan of Treatment [...] Read Routine (OP Routine) 10/13/2024 9:20 AM SKIN FORMER Hydronephrosis with urinary obstruction due to renal calculus documented in this encounter Results * IR Inject Abscess Catheter (10/13/2024 9:20 AM SKIN FORMER) Anatomical Region Laterality Modality Body N/A X-Ray Angiograph y 10/13/2024 11:3 7 AM SKIN FORMER Impressions 10/13/2024 11:37 AM SKIN FORMER Well-positioned suprapubic catheter. PLAN: Continue to monitor catheter output as well as the patient's clinical condition. ??Patient will be scheduled for exchange 6-8 weeks from time of initial placement. If questions arise, please contact us by calling [phone]. Electronically signed by: Nazario Peterson PA-C Narrative 10/13/2024 11:37 AM SKIN FORMER EXAMINATION: SUPRAPUBIC CATHETER EVALUATION HISTORY: ??74-year-old male with neurogenic bladder underwent suprapubic catheter placement on 09/23/2024. ??Patient presents today with leakage from the drainage bag as well 3 day history of mild hematuria. PROVIDER PRESENCE: Nazario Peterson PA-C, was present from the beginning to the end of the procedure. ?? SEDATION: ??No sedation TECHNIQUE: Prior to beginning the procedure, Whitewright Protocol was used to confirm the patient's identity and planned procedure. Fluoroscopy time has been recorded in the electronic medical record. After obtaining a assistant to the president image, the catheter was injected with dilute [...] sedation TECHNIQUE: Prior to beginning the procedure, Whitewright Protocol was used to confirm the patient's identity and planned procedure. Fluoroscopy time has been recorded in the electronic medical record. After obtaining a assistant to the president image, the catheter was injected with dilute [...] questions arise, please contact us by calling [phone]. Electronically signed by: Nazario Peterson PA-C us [...] 1 dose Contrast Given 10/13/2024 9:21 AM SKIN FORMER 10 mL documented in this encounter Orders Medications Ordered That Armando ht Not Have Been Administered Count Last Ordered Date First Ordered Date iothalamate meglumine (CONRA Y) 60 % injection 10 mL 1 10/13/2024 Discharge Count Last Ordered Date First Orde red Date DISCHARGE PATIENT 1 10/13/2024 documented in this encounter Care Teams Docketing Specialist Relationship Specialty Start Date End Date No, Physician PCP - General 05/26/24 documented as of this encounter
--- OUTSIDE RECORDS SUMMARY | 2024-11-05 22:54 | XMS_ITS | Encounter Summary ---
Author Organization [facility] Healthcare Address [address] [place] [address] Care Team Providers Care Procurement Clerk Name Role Phone No, Physician Primary Care Provider [phone] Encounter Details Date Type Department Care Team (Late st Contact Info) Description 10/10/2024 Telephone [facility] Imaging [address] [place] [address] Leticia Donahue RN Social History Tobacco Use Types Packs/Day Years Used Date Smoking Tobacco: Former Cigarettes 1 11 969 - 1979 Passive Smoke Exposure: Never Smokeless Tobacco: Never Alcohol Use Standard Drinks/Week Comments Yes 14 (1 standard drink = 0.6 oz pu re alcohol) social C Utilities Answer Date Recorded In the past 12 months has [facility], gas, oil, or water [employer] threatened to shut off services in your [...] any clubs o r organizations such as adventism groups, unions, fraternal or athletic groups, or [...] file Legal Sex Male 9: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 ASSISTANT Gender Identity Not on file Sexual Orientation Not on file 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 Not on file Not on file documented as of this encounter Miscellaneous Notes * Telephone Encounter - Leticia Donahue RN - 10/10/2024 10:40 AM CERTIFIED MEDICAL ASSISTANT Confirmed with Carey at the [place] Preprocedure Phone Call Procedure Time Verified: Yes Arrival Time Verified: Yes Procedure Location Verified: Yes Medical History Reviewed: No NPO Status Reinforced: No Ride and Caregiver Arranged: No Patient Knows to Bring Current Medications: No Patient Knows to Bring CPAP: No Is Patient on Home Ventilator?: No Is Patient on Blood Thinners?: Yes (xarelto) IFIED MEDICAL ASSISTANT documented in this encounter Plan of Treatment Not on file documented as of this encounter Visit Diagnoses Not on filedocumented in this encounter Care Teams Procurement Clerk Relationship Specialty Start Date End Date No, Physician PCP - General 05/26/24 documented as of this encounter
--- OUTSIDE RECORDS SUMMARY | 2024-11-05 22:54 | XMS_ITS | Encounter Summary ---
Author Organization [facility] Address [address] [facility] [address] [place] [address] Phone Care Team Providers Care Railroad Police Name Role Phone No, Physician Primary Care Provider [phone] Encounter Details Date Type Department Care Team (Late st Contact Info) Description 08/25/2024 Orders Only [facility] Surgery [address] [place] [address] Temo Mcintosh MD [address] [facility] [place] [address] Hydronephrosis with urinary obstruction due to renal calculus (Primary Dx) Social History Tobacco Use Types Packs/Day Years Used Date Smoking Tobacco: Former Cigarettes 1 11 969 - 1979 Passive Smoke Exposure: Never Smokeless Tobacco: Never Alcohol Use Standard Drinks/Week Comments Yes 14 (1 standard drink = 0.6 oz pu re alcohol) social C Utilities Answer Date Recorded In the past 12 months has [employer], gas, oil, or water [employer] threatened to shut off services in your [...] week 12/27/2023 How often do you attend [facility] or mandaen services? 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
--- OUTSIDE RECORDS SUMMARY | 2024-11-05 22:54 | XMS_ITS | Encounter Summary ---
Author Organization [facility] Healthcare Address [address] [place] [address] Care Team Providers Care Facility Maintenance Supervisor Name Role Phone No, Physician Primary Care Provider [phone] Encounter Details Date Type Department Care Team (Late st Contact Info) Description 09/22/2024 Telephone [facility] Imaging [address] [facility] [place] [address] Leticia Donahue RN Social History Tobacco Use Types Packs/Day Years Used Date Smoking Tobacco: Former Cigarettes 1 11 969 - 1979 Passive Smoke Exposure: Never Smokeless Tobacco: Never Alcohol Use Standard Drinks/Week Comments Yes 14 (1 standard drink = 0.6 oz pu re alcohol) social C Utilities Answer Date Recorded In the past 12 months has [employer], gas, oil, or water [employer] threatened to shut off services in your [...] on file Legal Sex Male 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 Gender Identity Not on file Sexual Orientation Not on file 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
--- OUTSIDE RECORDS SUMMARY | 2024-11-05 22:54 | XMS_ITS | Encounter Summary ---
Author Organization [facility] Healthcare Address [address] [place] [address] Care Team Providers Care Table Operator Name Role Phone No, Physician Primary Care Provider [phone] Reason for Referral * Diagnostic Imaging (Routine) - Closed Specialty Diagnoses / Procedures Referred By Contac t Referred To Contact Radiology Diagnoses Hydronephrosis with urinary obstruction due to renal calculus Procedures IR Suprapubic Catheter Insertion Consult to Interventional Radiology Temo Mcintosh MD [address] [facility] [place] [address] Phone: tel: fax: [place] [address] [place] [address] Referral ID Status Reason Start Date Expiration Date Visits Re quested Visits Authorized [id number] Closed 09/05/2024 10/05/2025 1 1 PILOT Reason for Visit * Diagnostic Imaging (Routine) - Closed Specialty Diagnoses / Procedures Referred By Contac t Referred To Contact Radiology Diagnoses Hydronephrosis with urinary obstruction due to renal calculus Procedures IR Suprapubic Catheter Insertion Consult to Interventional Radiology Temo Mcintosh MD [address] [facility] [place] [address] Phone: tel: fax: [place] [address] [address] [address] [phone] Referral ID Status Reason Start Date Expiration Date Visits Re quested Visits Authorized [id number] Closed 09/05/2024 10/05/2025 1 1 Encounter Details Date Type Department Care Team (Late st Contact Info) Description 09/23/2024 10:55 AM BAR PILOT - 09/23/2024 11:59 PM BAR PILOT Hospital Encounter [facility] Imaging [address] [address] [address] Milan Crum MD [address] [facility] [address] [place] [address] Heidi Kaminski RN Clark, Christina, RN Hydronephrosis with urinary obstruction due to renal calculus Discharge Disposition: Discharge to home or self care Social History Tobacco Use Types Packs/Day Years Used Date Smoking Tobacco: Former Cigarettes 1 11 961979 Passive Smoke Exposure: Never Smokeless Tobacco: Never Alcohol Use Standard Drinks/Week Comments Yes 14 (1 standard drink = 0.6 oz pu re alcohol) social [employer] Utilities Answer Date Recorded In the past 12 months has [email or web address], gas, oil, or water [employer] threatened to shut off services in your [...] on file Legal Sex Male 9:07 PM BAR PILOT Gender Identity Not on file Sexual Orientation Not on file 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 Not on file Not on file documented as of this encounter Last Filed Vital Signs Vital Sign Reading Time Taken Comments Blood Pressure 150/72 09/23/2024 12:40 PM BAR PILOT Pulse 80 09/23/2024 12:40 PM BAR PILOT Temperature 36.8 ??C (98.3 ??F) 09/23/2024 11:[address] Respiratory Rate 16 09/23/2024 12:40 PM BAR PILOT Oxygen Saturation 100% 09/23/2024 12:40 PM BAR PILOT Inhaled Oxygen Concentration - - Weight 86.2 kg (190 lb) 09/23/2024 11:35 AM BAR PILOT Height 172.7 cm (5' 8 ) 09/23/2024 11:35 AM BAR PILOT Body Mass Index 28.89 09/23/2024 11:35 AM BAR PILOT documented in this encounter Discharge Instructions * Discharge Instructions* Milan Crum MD - 09/23/2024 12:33 PM BAR PILOT Interventional Radiology Outpatient Discharge Instructions/Note Diagnosis: Neurogenic [...] draining. To contact an Interventional Radiologist at [facility] call [phone] Sunday through Sunday from 7:30am-4:30pm. At all other times call [phone] and ask that the Interventional Radiologist be paged. To contact an Interventional Radiologist at [facility] call [phone] Sunday through Sunday from 7:30am-3:30pm. Special instructions: Please call Interventional Radiology for any procedure related questions or problems including: Extreme swelling or bruising at the site. Unusual drainage or bleeding from procedure site. Fever of 101.5 F for more than 24 hours. Severe procedure related pain. Follow up care: [] Return to Interventional Radiology on at Please come to: [] 3rd Floor [facility] [] 4th floor [facility] [] [facility] [] [facility] Please call [phone] to schedule a follow up appointment. You need to return in PILOT documented in this encounter Medications at Time [...] ound healing Take 1 tablet by mouth order detailer before breakfast ondansetron ODT (ZOFRAN-ODT) 4 mg [...] 1 tablet (20 mEq total) by mouth order detailer before breakfast 4 senna-docusate (PERICOLACE) 8.6-50 mg [...] Milan Crum MD - 09/23/2024 12:00 PM BAR PILOT Radiology Brief Post Procedure Note Attending: Radames Intelligence Director: None Sedation/Anesthesia: Min Sedation Pre-Op/Pre-Procedure Diagnosis: Neurogenic bladder Post-Op/Post-Procedure Diagnosis: As above Procedure Performed: Suprapubic catheter placement Procedure Findings: Thickened urinary bladder wall Successful 16Fr MP cope loop suprapubic catheter placement into the bladder lumen Complications: None Estimated Blood Loss: < 30 ml Specimens: None Condition: Stable Full report to follow. Milan Crum MD resourcing consultant and Surgery Vascular and Interventional Radiology Section [facility] [place] PILOT * Pre-Procedure Note - Milan Crum MD - 09/23/2024 12:00 PM BAR PILOT Radiology Short Sedation Form Indication: Long-term Harris [...] been discussed with the patient and/or their nutrition representative. All questions answered and they agree to proceed. Milan Crum MD resourcing consultant and Surgery Vascular and Interventional Radiology Section [facility] [place] PILOT documented in this encounter Plan of Treatment Not on file documented as of this encounter Procedures Procedure Name Priority Date/Time Associated Diagnosis Comments SUPRAPUBIC CATHETER INSERTION Schedule Routine, Read Routine (OP Routine) 09/23/2024 12:24 PM BAR PILOT Hydronephrosis with urinary obstruction due to renal calculus documented in this encounter Results * IR Suprapubic Catheter Insertion (09/23/2024 12:24 PM BAR PILOT) Anatomical Region Laterality Modality Body N/A Ultrasound 09/23/2024 12:5 2 PM BAR PILOT Impressions 09/23/2024 12:52 PM BAR PILOT Successful image guided suprapubic catheter tube placement. PLAN: Routine exchange in 12 weeks. Electronically signed by: Milan Crum M.D. Narrative 09/23/2024 12:52 PM BAR PILOT EXAMINATION: ??PERCUTANEOUS SUPRAPUBIC CATHETER PLACEMENT HISTORY/INDICATION: ??74-year-old [...] was obtained. ??Prior to beginning the procedure, [place] Protocol was used to confirm the patient's [...] dilating the tract to ??16 Fr. ??A 16-Slovak multipurpose cope loop catheter was then advanced [...] obtained. Prior to beginning the procedure, [place] Protocol was used to confirm the patient's [...] dilating the tract to 16 Fr. A 16-Slovak multipurpose cope loop catheter was then advanced [...] at 1215, Intra-Op Given 09/23/2024 12:15 PM BAR PILOT 50 mcg Given 09/23/2024 12:03 PM BAR PILOT 50 mcg iothalamate meglumine (CONRAY) 60 % injection 10 mL 10 mL, intra-catheter, Once in imaging, contrast, Starting on Sun09/23/24 at 1224, For 1 dose Contrast Given 09/23/2024 12:25 PM BAR PILOT 10 mL lidocaine (PF) (XYLOCAINE) 10 mg/mL (1 %) preservative free injection As needed, Starting on Sun09/23/24 at 1215, Intra-Procedure (IR), Indications: Administration of Local AnesthesiaIndications:Admini stration of Local Anesthesia Given 09/23/2024 12:15 PM BAR PILOT 10 mL Abdominal Tissue midazolam (VERSED) 1 mg/mL injection As needed, Starting on Sun09/23/24 at 1215, Intra-Op Given 09/23/2024 12:15 PM BAR PILOT 1 mg Given 09/23/2024 12:03 PM BAR PILOT 1 mg sodium chloride 0.9% infusion intravenous, Continuous PRN, Starting on Sun09/23/24 at 1202, Intra-Op New Bag 09/23/2024 12:02 PM BAR PILOT 100 mL/hr 100 mL/hr documented in this encounter Orders Discharge Count Last Ordered Date First Orde red Date DISCHARGE PATIENT 1 09/23/2024 documented in this encounter Care Teams Table Operator Relationship Specialty Start Date End Date No, Physician PCP - General 05/26/24 documented as of this encounter
--- OUTSIDE RECORDS SUMMARY | 2024-11-05 22:54 | XMS_ITS | Encounter Summary ---
Author Organization [facility] Healthcare Address [address] [place] [address] Care Team Providers Care Associate Data Scientist Name Role Phone No, Physician Primary Care Provider [phone] Encounter Details Date Type Department Care Team (Late st Contact Info) Description 09/03/2024 Orders Only [facility] Radiology [address] [place] [address] Meryl Longoria RN Social History Tobacco Use Types Packs/Day Years Used Date Smoking Tobacco: Former Cigarettes 1 11 969 1979 Passive Smoke Exposure: Never Smokeless Tobacco: Never Alcohol Use Standard Drinks/Week Comments Yes 14 (1 standard drink = 0.6 oz pu re alcohol) social C Utilities Answer Date Recorded In the past 12 months has [employer], gas, oil, or water [employer] threatened to shut off services in your [...] attend chur ch or cheondoism services? 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
--- OUTSIDE RECORDS SUMMARY | 2024-11-05 22:54 | XMS_ITS | Encounter Summary ---
Author Organization [facility] Address [address] [place] [address] Phone Care Team Providers Care Business Management Analyst Name Role Phone No, Physician Primary Care Provider [phone] Reason for Visit * Reason Onset Date Comments Scheduling Appointments 09/04/2024 Encounter Details Date Type Department Care Team (Late st Contact Info) Description 09/04/2024 Telephone [facility] Orthopaedic Surgery [address] [place] [address] Marcial Vu Jr., MD [facility] [place] [address] Scheduling Appointments Social History Tobacco Use Types Packs/Day Years Used Date Smoking Tobacco: Former Cigarettes 1 09 05 969 - 1979 Passive Smoke Exposure: Never Smokeless Tobacco: Never Alcohol Use Standard Drinks/Week Comments Yes 14 (1 standard drink = 0.6 oz pu re alcohol) social [facility] Utilities Answer Date Recorded In the past 12 months has [employer], gas, oil, or water company threatened to [...] on file Legal Sex Male 9: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
--- OUTSIDE RECORDS SUMMARY | 2024-11-05 22:54 | XMS_ITS | Encounter Summary ---
Author Organization [facility] Healthcare Address [address] [place] [address] Care Team Providers Care Oral Communication Instructor Name Role Phone No, Physician Primary Care Provider [phone] Encounter Details Date Type Department Care Team (Late st Contact Info) Description 09/17/2024 Telephone [facility] Radiology [address] [place] [address] Viry Stroud RN Social History Tobacco Use Types Packs/Day Years Used Date Smoking Tobacco: Former Cigarettes 1 11 969 1979 Passive Smoke Exposure: Never Smokeless Tobacco: Never Alcohol Use Standard Drinks/Week Comments Yes 14 (1 standard drink = 0.6 oz pu re alcohol) social [facility] Utilities Answer Date Recorded In the past 12 months has [employer], gas, oil, or water [employer] threatened to shut off services in your [...] any clubs o r organizations such as pentecostal groups, unions, fraternal or athletic groups, or [...] on file 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 US at 1pm followed by CT venogram at 3:40. Pt to be NPO 2 hours prior to scan. Pt's agreeable and verbalized understanding. [place] direct line given for contact as needed. CISE PHYSIOLOGY PROFESSOR documented in this encounter Plan of Treatment Not on file documented as of this encounter Visit Diagnoses Not on filedocumented in this encounter Care Teams Oral Communication Instructor Relationship Specialty Start Date End Date No, Physician PCP - General 05/26/24 documented as of this encounter
--- OUTSIDE RECORDS SUMMARY | 2024-11-05 22:54 | XMS_ITS | Encounter Summary ---
Author Organization [facility] Address [address] [facility] [address] [place] [address] Phone Care Team Providers Care Sanitary Engineering Teacher Name Role Phone No, Physician Primary Care Provider [phone] Reason for Referral * Diagnostic Imaging (Routine) - Closed Specialty Diagnoses / Procedures Referred By Manisha gale Referred To Contact Radiology Diagnoses Hydronephrosis with urinary obstruction due to renal calculus Procedures IR Suprapubic Catheter Insertion Consult to Interventional Radiology Temo Mcintosh MD [address] [facility] [place] [address] Phone: tel: fax: [address] [address] Referral ID Status Reason Start Date Expiration Date Visits Re quested Visits Authorized [id number] Closed 09/05/2024 10/05/2025 1 1 Encounter Details Date Type Department Care Team (Late st Contact Info) Description 09/05/2024 Orders Only [facility] Surgery [address] [place], [place] [id number] Temo Mcintosh MD [address] [facility] [place] [address] Hydronephrosis with urinary obstruction due to renal calculus (Primary Dx) Social History Tobacco Use Types Packs/Day Years Used Date Smoking Tobacco: Former Cigarettes 1 11 1979 Passive Smoke Exposure: Never Smokeless Tobacco: Never Alcohol Use Standard Drinks/Week Comments Yes 14 (1 standard drink = 0.6 oz pu re alcohol) social [facility] Utilities Answer Date Recorded In the [...] attend chur ch or taoist services? 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 PLAN: Routine exchange in 12 weeks. Electronically signed by: Milan Crum M.D. Narrative 09/23/2024 12:52 PM GED TEACHER EXAMINATION: ??PERCUTANEOUS SUPRAPUBIC CATHETER PLACEMENT HISTORY/INDICATION: ??74-year-old [...] was obtained. ??Prior to beginning the procedure, [place] Protocol was used to confirm the patient's [...] was obtained. Prior to beginning the procedure, [place] Protocol was used to confirm the patient's [...] calculus documented in this encounter Care Teams Sanitary Engineering Teacher Relationship Specialty Start Date End Date No, Physician PCP - General 05/26/24 documented as of this encounter
--- OUTSIDE RECORDS SUMMARY | 2024-11-05 22:54 | XMS_ITS | Encounter Summary ---
Author Organization [facility] Address [address] [place] [address] Phone Care Team Providers Care Reprographics Associate Name Role Phone No, Physician Primary Care Provider [phone] Encounter Details Date Type Department Care Team (Late st Contact Info) Description 10/09/2024 Telephone [place] [id number] [facility] Floor [address] [place] [address] Oneyda Kaur, RN Social History Tobacco Use Types Packs/Day Years Used Date Smoking Tobacco: Former Cigarettes 1 09 05 969 - 1979 Passive Smoke Exposure: Never Smokeless Tobacco: Never Alcohol Use Standard Drinks/Week Comments Yes 14 (1 standard drink = 0.6 oz pu re alcohol) social [facility] Utilities Answer Date Recorded In the past 12 months has [employer], gas, oil, or water [email or web address] threatened to shut off services in your [...] often do you attend chur ch or evangelical services? 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 Calling to clarify if patient should restart his Xarleto. Xarelto was held starting 09/16 for suprapubic catheter placement. It was never restarted post procedure. LMOV for Carey ([phone]). Advised patient should be on Xarelto currently. Call back number given. RIVETING MACHINE OPERATOR documented in this encounter Plan of Treatment Not on file documented as of this encounter Visit Diagnoses Not on filedocumented in this encounter Care Teams Reprographics Associate Relationship Specialty Start Date End Date No, Physician PCP - General 05/26/24 documented as of this encounter
--- OUTSIDE RECORDS SUMMARY | 2024-11-05 22:54 | XMS_ITS | Encounter Summary ---
Author Organization [facility] Address [address] [facility] [address] [place] [address] Phone Care Team Providers Care Music Critic Name Role Phone No, Physician Primary Care Provider [phone] Encounter Details Date Type Department Care Team (Late st Contact Info) Description 09/08/2024 Orders Only [facility] Surgery [address] [place] [address] Temo Mcintosh MD [address] [facility] [place] [address] Hydronephrosis with urinary obstruction due to renal [...] Recorded In the past 12 months has [employer], gas, oil, or water [employer] threatened to shut off services in your [...] week 12/27/2023 How often do you attend [facility] or anabaptism services? 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
--- OUTSIDE RECORDS SUMMARY | 2024-11-05 22:54 | XMS_ITS | Encounter Summary ---
Author Organization [facility] Healthcare Address [address] [place] [address] Care Team Providers Care Inspector Golf Ball Name Role Phone No, Physician Primary Care Provider [phone] Reason for Referral * MRI/CAT/PET Scan (Routine) - Closed Specialty Diagnoses / Procedures Referred By Contac t Referred To Contact Radiology Diagnoses Bilateral lower extremity edema Procedures CT Abdomen Pelvis W Contrast Milan Crum MD [address] [place] [address] Phone: tel: fax: [address] [address] Referral ID Status Reason Start Date Expiration Date Visits Re quested Visits Authorized [id number] Closed 09/15/2024 10/15/2025 1 1 DEODORIZER SERVICER Reason for Visit * MRI/CAT/PET Scan (Routine) - Closed Specialty Diagnoses / Procedures Referred By Contac t Referred To Contact Radiology Diagnoses Bilateral lower extremity edema Procedures CT Abdomen Pelvis W Contrast Milan Crum MD [address] [address] Phone: tel: fax: [address] [address] Referral ID Status Reason Start Date Expiration Date Visits Re quested Visits Authorized [id number] Closed 09/15/2024 10/15/2025 1 1 Encounter Details Date Type Department Care Team (Late st Contact Info) Description 09/29/2024 3:40 PM AIR DEODORIZER SERVICER - 09/29/2024 11:59 PM AIR DEODORIZER SERVICER Hospital Encounter [facility] [address] [place] [address] Milan Crum MD [address] [facility] [address] [place] [address] Bilateral lower extremity edema Discharge Disposition: Discharge to home or self care Social History Tobacco Use Types Packs/Day Years Used Date Smoking Tobacco: Former Cigarettes 1 11 9 1979 Passive Smoke Exposure: Never Smokeless Tobacco: Never Alcohol Use Standard Drinks/Week Comments Yes 14 (1 standard drink = 0.6 oz pu re alcohol) social [facility] Utilities Answer Date Recorded In the past 12 months has [employer], gas, oil, or water company threatened to [...] file Legal Sex Male 9:07 PM AIR DEODORIZER SERVICER Gender Identity Not on file Sexual Orientation Not on file 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 Not on file Not [...] Take 1 tablet by mouth early childhood educator aide before breakfast ondansetron ODT (ZOFRAN-ODT) 4 mg [...] (20 mEq total) by mouth early childhood educator aide before breakfast 4 senna-docusate (PERICOLACE) 8.6-50 mg [...] Read Routine (OP Routine) 09/29/2024 4:48 PM AIR DEODORIZER SERVICER Bilateral lower extremity edema POCT CREATININE - DEVICE Routine 09/29/2024 4:27 PM AIR DEODORIZER SERVICER documented in this encounter Results * CT Abdomen Pelvis W Contrast (09/29/2024 4:48 PM AIR DEODORIZER SERVICER) Anatomical Region Laterality Modality Body N/A Computed Tomogra phy 09/30/2024 7:5 8 AM AIR DEODORIZER SERVICER Impressions 09/30/2024 7:58 AM AIR DEODORIZER SERVICER 1. ??Stents extending from the inferior vena [...] Yesica Bennett M.D. Narrative 09/30/2024 7:58 AM AIR DEODORIZER SERVICER EXAMINATION: ??Computed tomography of the abdomen and [...] sult * POCT creatinine (09/29/2024 4:27 PM AIR DEODORIZER SERVICER) Creatinine POC 0.7 0.7 - 1.3 mg/dL Blood 09/29/2024 4:27 PM AIR DEODORIZER SERVICER 09/29/2024 4:27 PM AIR DEODORIZER SERVICER Milan Crum MD LAB POCT ORDERABLES - GILBERT CE Final Result [facility] Department [place] [address] documented in this encounter Visit Diagnoses Diagnosis Bilateral lower extremity edema documented in this encounter Administered Medications Inactive Administered Medications - up to 3 most recent administrations Medication Order MAR Action Action Date Dose Rate Site ioversoL (OPTIRAY 350) syringe 125 mL 125 mL, intravenous, Once in imaging, contrast, Starting on 09/29/24 at 1638, For 1 dose Contrast Given 09/29/2024 4:48 PM AIR DEODORIZER SERVICER 119 mL documented in this encounter Orders Medications Ordered That Armando ht Not Have Been Administered Count Last Ordered Date First Ordered Date ioversoL (OPTIRAY 350) syringe 125 mL 1 documented in this encounter Care Teams Inspector Golf Ball Relationship Specialty Start Date End Date No, Physician PCP - General 05/26/24 documented as of this encounter
--- OUTSIDE RECORDS SUMMARY | 2024-11-05 22:54 | XMS_ITS | Referral Summary ---
Author Organization [facility] Address [address] [place] [address] Care Team Providers Care Rn Admit Name Role Phone No, Physician Primary Care Provider [phone] Encounters Date Type Department Care Team Description 10/22/2024 9:00 AM VIDEO GAME DESIGNER Office Visit [facility] Orthopaedic Surgery [address] [facility] 12th [place] [address] [place] [address] Joleen Cantor MD Paraplegia (HCC) (Primary Dx); S/P laminectomy with spinal fusion; Injury of thoracic spinal cord, subsequent encounter (HCC); Immobility syndrome (paraplegic); 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, initial encounter (HCC); Neurogenic bladder; Neurogenic bowel; Impaired mobility and ADLs 10/13/2024 8:30 AM VIDEO GAME DESIGNER - 10/13/2024 11:59 PM VIDEO GAME DESIGNER Hospital Encounter [facility] [address] [place] [address] Krista Aleman RN Despins, Kara Lorraine, RN Kassy Birmingham, RT Anjana Gee RN Hydronephrosis with urinary obstruction due to renal calculus Discharge Disposition: Discharge to home or self care 10/10/2024 Telephone [facility] [address] [place] [address] Leticia Donahue RN 10/09/2024 Telephone [facility] Hematology [address] [facility] Floor 6 [place] [address] Oneyda Kaur, NARENDRA 10/06/2024 Telephone [facility] 1 [place] [address] Viry Stroud, NARENDRA 09/29/2024 3:40 PM VIDEO GAME DESIGNER - 09/29/2024 11:59 PM VIDEO GAME DESIGNER Hospital Encounter [facility] Advanced Medicine ([facility]) [address] [place] [address] Corina Echavarria MD Bilateral lower extremity edema Discharge Disposition: Discharge to home or self care 09/29/2024 1:00 PM VIDEO GAME DESIGNER Ancillary Procedure [facility] Vascular Lab at the [facility] Advanced Medicine [address] [place] [address] Advanced Medicine 8th [place] [address] [place] [address] Bilateral lower extremity edema 09/24/2024 Telephone [facility] [address] [place] [address] Leticia Donahue RN 09/23/2024 10:55 AM VIDEO GAME DESIGNER - 09/23/2024 11:59 PM VIDEO GAME DESIGNER Hospital Encounter [facility] [address] [place] [address] Corina Echavarria MD Noonan, Caitlin Therese, Anjana Delgadillo RN Hydronephrosis with urinary obstruction due to renal calculus Discharge Disposition: Discharge to home or self care 09/22/2024 Telephone [facility] [address] [place] [address] Leticia Donahue RN 09/17/2024 Telephone [facility] 1 [place] [address] Viry Stroud, NARENDRA 09/16/2024 Telephone [facility] [address] [place] [address] Leticia Donahue RN 09/15/2024 10:00 AM VIDEO GAME DESIGNER Office Visit [facility] Radiology, Interventional Radiology [address] [facility] [address] [place] [address] Corina Echavarria MD Bilateral lower extremity edema (Primary Dx) 09/08/2024 Telephone [facility] 1 [place] [address] Viry Stroud RN 09/08/2024 Orders Only [facility] Surgery [address] [place] [address] Temo Mcintosh MD Hydronephrosis with urinary obstruction due to renal calculus (Primary Dx); Renal failure, unspecified chronicity 09/05/2024 Orders Only [facility] Surgery [address] [place] [address] Temo Mcintosh MD Hydronephrosis with urinary obstruction due to renal calculus (Primary Dx) 09/05/2024 Orders Only [facility] 1 [place] [address] Meryl Longoria RN 09/04/2024 Telephone [facility] Orthopaedic Surgery [address] [facility] Medical [facility] Building [address] [place] [phone] Marcial Vu Jr., MD Scheduling Appointments 09/03/2024 Orders Only [facility] 1 [place] [address] Meryl Longoria RN 09/02/2024 10:13 AM CDT - 09/02/2024 2:42 PM CDT Emergency [facility] Emergency Department [address] [place] [address] Wound of right foot (Primary Dx) Discharge Disposition: Discharge to home or self care 09/01/2024 Telephone [facility] Infectious Diseases [address] [place] [address] [address] [place] [phone] Caitlin Hussein BS 09/01/2024 Orders Only [facility] 1 [place] [address] Meryl Longoria RN 08/25/2024 Orders Only [facility] Surgery [address] [place] [address] Temo Mcintosh MD Hydronephrosis with urinary obstruction due to renal calculus (Primary Dx) 08/25/2024 Orders Only [facility] Surgery [address] [place] [address] Temo Mcintosh MD Hydronephrosis with urinary obstruction due to renal calculus (Primary Dx) 08/25/2024 3:30 PM CDT Telemedicine [facility] Hematology [address] [facility] Floor 6 [place] [address] Katharine Hampton MD Anticoagulant long-term use (Primary Dx); Personal history of venous thrombosis and embolism; Pulmonary embolism, unspecified chronicity, unspecified pulmonary embolism type, unspecified whether acute cor pulmonale present (HCC) 08/21/2024 Telephone [facility] Surgery [address] [place] [address] Des Gay BS 08/14/2024 3:00 PM CDT Office Visit [facility] Surgery [address] [facility] [address] [place] [address] Corry Lopez NP 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); History of prostate cancer 08/12/2024 Telephone [facility] Advanced Medicine ([facility]) - [facility] Urology [address] [facility] Advanced Medicine 11th [place] [address] [place] [address] Chad Vivas 08/05/2024 Telephone [facility] 1 [place] [address] Viry Stroud, RN 08/05/2024 Telephone [facility] 1 [place] [address] Viry Stroud, RN from Last 3 Months [...] mg oralDaily before breakfast, Indications: Edema, [facility], Reported on 10/22/2024 gabapentin (NEURONTIN) 600 mg tabletIndications :Pain Take 1 tablet (600 mg total) by mouth 3 (three) times a day 024 2024 Active Additional Information Patient taking differently:600 mg oral3 times daily PRN, pain, (No indications reported), [facility], Reported on 10/22/2024 miconazole 2 % powder Apply topically 2 (two) times a day Active Additional Information Patient taking differently: 1 Applicationtopical 2 times daily,Indications: apply to groin area, [facility], Reported on 10/22/[address] (PROTONIX) 40 mg EC tabletIndications :Treatment of Non-Bleeding Gastric Disorder Take 1 tablet (40 mg total) by mouth daily 024 2024 Active Additional Information Patient taking differently:40 mg oralEvery morning, Indications: Treatment of Non-Bleeding Gastric Disorder, acid reflux, [facility], Reported on 10/22/2024 senna-docusate (PERICOLACE) 8.6-50 mg Take 1 tablet by mouth nightly Active Additional Information Patient taking differently:1 tablet oralDaily (early AM), Indications: constipation, [facility], Reported on 10/22/2024 tamsulosin (FLOMAX) 0.4 mg extended release capsule Take 2 capsules (0.8 mg total) by mouth daily with dinner Active Additional Information Patient taking differently:0.8 mg oral Nightly, 2 tablets, Indications: benign prostatic hyperplasia with lower urinary tract sx, Informant: [facility], Reported on 12/12/2023 cyclobenzaprine (FLEXERIL) [...] 6 hours PRN, pain,(No indications reported), Informant: [facility], Reported on 10/22/2024 multivitamin tabletIndications :wound healing Take 1 tablet by mouth stencil inspector before breakfast Active metOLazone (ZAROXOLYN) 5 mg tablet Take 1 tablet (5 mg total) by mouth daily Act jania potassium chloride ER 20 mEq CR tabletIndications :supplement Take 1 tablet (20 mEq total) by mouth stencil inspector before breakfast Active Mounjaro 10 mg/0.5 mL [...] times daily, Indications: bladder spasm/stent pain, Informant: [facility], Reported on 10/22/2024 cetirizine (ZyrTEC) [...] 10/24/2024 Nephrolithiasis 12/25/2023 DVT (deep venous thrombosis) (CMS/FORMERLY [facility]) 4 Assessment & Plan (12/10/2023 2:44 PM VIDEO GAME DESIGNER): Patient with complex history with cardiac arrest [...] 11/29/2023 Assessment & Plan (11/29/2023 7:17 PM VIDEO GAME DESIGNER): - Stable Hgb ~8 - Maintain Hgb > 7 Paraspinal hematoma 11/29/2023 Assessment & Plan (12/01/2023 12:39 PM VIDEO GAME DESIGNER): - Occurred on therapeutic anticoagulation in setting of recent lumbar decompression, with subsequent LE paralysis and emergent hematoma evacuation on 11/07 - Directly-admitted from [facility] - PT/OT - Orthopedics following - had sutures removed on 11/30 - note had some drainage from sutures, plan 7-10d course SSTI antibiotics using Bactrim for now - anticoagulation as elsewhere (see DVT ) Hyponatremia 11/29/2023 Assessment & Plan (12/07/2023 11:50 AM VIDEO GAME DESIGNER): Improved. Na low 130s over the past week, has improved with improved oral intake and remains in normal range with initiation of diuretic therapy. - CTM on lasix Elevated transaminase level 11/29/2023 Assessment & Plan (12/04/2023 11:59 AM VIDEO GAME DESIGNER): - AST 65, ALT 80, new on arrival- Unclear etiology at this time - possibly from IVC compression/distention in setting of potential thrombi? - Improving - will hold off on further imaging Lower extremity edema 11/29/2023 Assessment & Plan (12/01/2023 12:38 PM VIDEO GAME DESIGNER): - Eval/mgt per above. NT-proBNP 105. Scrotal swelling 11/29/2023 Assessment & Plan (12/10/2023 2:44 PM VIDEO GAME DESIGNER): - In setting of presumed DVT - no evidence of infection on exam - Scrotal Sling - Maintain sofia catheter - DVT mgt per above - for edema, will continue IV lasix 40 mg BID, monitor electrolytes - at discharge will discharge on PO lasix 40 mg BID Seizure 11/29/2023 Assessment & Plan (11/29/2023 7:16 PM VIDEO GAME DESIGNER): - Patient developed reported seizure on 10/23 during or prior to cardiac arrest with bilateral SDH noted on imaging - placed on keppra through follow-up with NSGY next month Prediabetes 11/29/2023 Assessment & Plan (11/29/2023 7:22 PM VIDEO GAME DESIGNER): - Was on mounjaro as outpatient - has required intermittent SSI at [facility] - Diabetic diet, SSI ordered Kidney stone 11/09/2023 Paraplegia 11/07/2023 Assessment & Plan (11/29/2023 7:15 PM VIDEO GAME DESIGNER): - Patient with paralysis of LE following recent spinal hematoma s/p emergent evacuation on 11/07 - Ongoing 11/09 strength of LE, sensation intact - Fall precautions Pulmonary embolism 10/26/2023 Assessment & Plan (11/29/2023 7:16 PM VIDEO GAME DESIGNER): - Eval/mgt per above Assessment & Plan (10/26/2023 5:11 PM VIDEO GAME DESIGNER): Patient with new PE on CT PE [...] 10/15/2023 Assessment & Plan (10/20/2023 2:57 PM VIDEO GAME DESIGNER): Likely post procedure complication. Urology following - CT urogram on 10/16 notes presence of L perinephric hematoma - Continue to trend white count, renal function and fever curve Ureteral colic 10/13/2023 UTI (urinary tract infection) 10/13/2023 Assessment & Plan (12/10/2023 2:43 PM VIDEO GAME DESIGNER): - Patient diagnosed with UTI in setting [...] urology. Assessment & Plan (10/20/2023 2:58 PM VIDEO GAME DESIGNER): - Complicated UTI with the presence of left ureteral stone and Pyelitis - urine culture grew E-coli which is pansusceptible. - Discussion with urology and orthopedic surgery: continue Keflex 500 mg q6hr as it appears patient will stay in-house until OR on 10/22-10/23 -Antibiotics as above. Hydronephrosis with urinary obstruction due to renal calculus 10/12/2023 Assessment & Plan (12/07/2023 1:48 PM VIDEO GAME DESIGNER): - Patient with noted progressed hydronephrosis during [...] back Assessment & Plan (10/19/2023 12:54 PM VIDEO GAME DESIGNER): Presented with generalized weakness with fever and [...] 10/08/2023 Assessment & Plan (10/20/2023 2:57 PM VIDEO GAME DESIGNER): He has been planned for plan for [...] (10/18/2022): Added automatically from request for surgery [id number] Bladder neck obstruction 10/17/2022 Lesion of urinary bladder 10/17/2022 Prostate cancer 10/17/2022 Assessment & Plan (11/29/2023 7:14 PM VIDEO GAME DESIGNER): - s/p prostatectomy Assessment & Plan (10/13/2023 5:39 AM VIDEO GAME DESIGNER): S/p postprostatectomy HTN (hypertension) 10/10/2021 Assessment & Plan (11/29/2023 7:14 PM VIDEO GAME DESIGNER): - Cont diltiazem - home ARB has been on hold at [facility] - continue to hold here initially Assessment & Plan (10/15/2023 9:11 AM VIDEO GAME DESIGNER): Hold home irbesartan Restart diltiazem xl Risk factors for obstructive sleep apnea 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 on file Not on file Not on file Last Filed Vital Signs Vital Sign Reading Time Taken Comments Blood Pressure 126/80 10/22/2024 8:54 AM VIDEO GAME DESIGNER Pulse 67 10/22/2024 8:54 AM VIDEO GAME DESIGNER Temperature 36.9 ??C (98.5 ??F) 10/13/2024 8:38 AM CS T Respiratory Rate 16 10/13/2024 8:38 AM VIDEO GAME DESIGNER Oxygen Saturation 98% 10/13/2024 8:38 AM VIDEO GAME DESIGNER Inhaled Oxygen Concentration - - Weight 90.7 kg (200 lb) 10/22/2024 8:54 AM VIDEO GAME DESIGNER Height 172.7 cm (5' 8 ) 09/23/2024 11:35 AM VIDEO GAME DESIGNER Body Mass Index 30.41 09/23/2024 11:35 AM VIDEO GAME DESIGNER Plan of Treatment Not on file Medical Devices Implanted Type Area Hot Dip Galvanizer Device Identifier Shelf Expiration Date Model / Serial / Lot [employer] 6197-9-010 Simplex P Full Dose Radiopaque Preblend Cement Bone Tobramycin - S0 - [id number] Implanted:Qty: 2 on 09/30/2019 by Fransisco Heard MD at [facility] Bone Cement Right: Knee [employer] [id number] 11/04/2020 6197-9-010 / 0 / [id number] [employer]/O rtho [id number] Kandace Ii 15mm Constrain Knee 5-6 Insert Articular Uhmwpe - S0 - [id number] Implanted:Qty: 1 on 09/30/2019 by Fransisco Heard MD at [facility] Other - see comments Right: Knee [employer]/ Ortho 03/13/2029 [id number] / 0 / [id number] [employer]/O rtho [id number] Legion 10mm Screw Knee 6 Wedge Femoral - S0 - [id number] Implanted:Qty: 1 on 09/30/2019 by Fransisco Heard MD at [facility] Other - see comments Right: Knee [employer]/ Ortho [id number] 10/04/2022 [id number] / 0 / [employer]/O rtho [id number] Legion Constrain Knee Right 6 Component Femoral Oxinium - S0 - [id number] Implanted:Qty: 1 on 09/30/2019 by Fransisco Heard MD at [facility] Other - see comments Right: Knee [employer]/ Ortho 05/26/2028 [id number] / 0 / [id number] [employer]/O rtho [id number] Legion 5mm Alcon Step Knee Right Medial Left Lateral 5-6 Wedge - S0 - [id number] Implanted:Qty: 1 on 09/30/2019 by Fransisco Heard MD at [facility] Other - see comments Right: Knee [employer]/ Ortho [id number] 06/03/2024 [id number] / 0 / [employer]O rtho [id number] Legion 15mm 160mm Press Fit Knee Stem Femoral - S0 - [id number] Implanted:Qty: 1 on 09/30/2019 by Fransisco Heard MD at [facility] Other - see comments Right: Knee [employer]/ Ortho 01/09/2028 [id number] / 0 / [id number] [employer]O rtho [id number] Legion 10mm Screw Knee 6 Wedge Femoral - S0 - [id number] Implanted:Qty: 1 on 09/30/2019 by Fransisco Heard MD at [facility] Other - see comments Right: Knee [employer]/ Ortho 03/04/2020 [id number] / 0 / [id number] [employer]/O rtho [id number] Legion Revision Knee Right 5 Baseplate Tibial - S0 - [id number] Implanted:Qty: 1 on 09/30/2019 by Fransisco Heard MD at [facility] Other - see comments Right: Knee [employer]/ Ortho [id number] 08/28/2026 [id number] / 0 / [id number] [employer]tho 55251625 Legion 15mm 160mm Press Fit Knee Stem Femoral - S0 - [id number] Implanted:Qty: 1 on 09/30/2019 by Fransisco Heard MD at [facility] Other - see comments Right: Knee [employer]/ Ortho [id number] 06/21/2028 [id number] / 0 / [id number] [employer] 5517-F-501 Triathlon Cruciate Retain Bead Knee Left 5 Component Femoral Pa - Sn/A - [id number] Implanted:Qty: 1 on 10/17/2021 by Laz Nolasco MD at [facility] Other - see comments Left: Knee [employer] [id number] 08/09/2026 5517-F-501 / N/A / [id number] [employer] 5536-B-600 Triathlon Knee 6 Baseplate Tibial Tritanium - Sn/A - [id number] Implanted:Qty: 1 on 10/17/2021 by Laz Nolasco MD at [facility] Other - see comments Left: Knee [employer] [id number] 07/24/2026 5536-B-600 / N/A / [id number] [employer] 9879-L-857-E Insert Tibial Triathlon 6 H10mm Knee Bearing Condylar Stabilize Sterile - Sn/A - [id number] Implanted:Qty: 1 on 10/17/2021 by Laz Nolasco MD at [facility] Other - see comments Left: Knee [employer] [id number] 08/02/2026 5531-G-610 -E / N/A / [id number] Total Joint Bilatera l: Knee [employer] 6197-9-010 Simplex P Full Dose Radiopaque Preblend Cement Bone Tobramycin - [id number] Implanted:Qty: 2 on 09/30/2019 by Fransisco Heard MD at [facility] Right: Knee [employer] [id number] 6197-9-010 / / [employer]osource Crushed Chip Frozen Graft 30ml Bone Cancellous [id number] - [id number] Implanted:Qty: 1 on 10/23/2023 by Marcial Vu Jr., MD at [facility] N/A: Spine Lumbar [employer] 06/05/2028 [id number] / / [id number] [employer] Allograft Bone Putty 2.5cc 700-025 - [id number] Implanted:Qty: 1 on 10/23/2023 by Marcial Vu Jr., MD at [facility] N/A: Spine Lumbar [employer] [id number] 01/02/2026 700-025 / / [id number] [employer] Creo Od7.5 Mm L55 Mm Thread Polyaxial Spine Screw Bone Titanium 5146.1757 - [id number] Implanted:Qty: 1 on 10/23/2023 by Marcial Vu Jr., MD at [facility] N/A: Spine Lumbar [employer] 5146.1757 / / [employer] Creo Od7.5 Mm L50 Mm Thread Polyaxial Spine Screw Bone Titanium 5146.1752 - [id number] Implanted:Qty: 3 on 10/23/2023 by Marcail Vu Jr., MD at [facility] N/A: Spine Lumbar [employer] 5146.1752 / / [employer] Creo Thread Spinal Cap Locking Nonsterile 1119.0010 - [id number] Implanted:Qty: 4 on 10/23/2023 by Marcial Vu Jr., MD at [facility] N/A: Spine Lumbar [employer] 1119.0010 / / [employer] Implant Spinal Sable [id number] 7-14mm 15 Deg 1172.1s - [id number] Implanted:Qty: 1 on 10/23/2023 by Marcial Vu Jr., MD at [facility] N/A: Spine Lumbar [employer] 1172.1S / / [employer] Creo 5.5mm 45mm Curve Daniel Spinal Titanium 1119.7045 - [id number] Implanted:Qty: 2 on 10/23/2023 by Marcial Vu Jr., MD at [facility] N/A: Spine Lumbar [employer] 1119.7045 / / [employer] Rex Tulip Navalign 30mm 7fr 50mm 65cm Introducer Sheath [id number] - [id number] Implanted:Qty: 1 on 11/09/2023 at [facility] [employer] 05/02/2026 [id number] / / [id number] Med[employer] Abre 14mm 150mm Self Expand Rotate Thumbwheel Hemostatic Valve [id number] - [id number] Implanted:Qty: 1 on 08/04/2024 at [facility] [employer] 04/18/2027 [id number] 1500 90 / / [id number] Med[employer] Inc Abre 14mm 150mm Self Expand Rotate Thumbwheel Hemostatic Valve [id number] - [id number] Implanted:Qty: 1 on 08/04/2024 at [facility] [employer] 10/10/2026 [id number] 1500 90 / / [id number] Med[employer] Inc Abre 14mm 120mm Self Expand Rotate Thumbwheel Hemostatic Valve [id number] - [id number] Implanted:Qty: 1 on 08/04/2024 at [facility] [employer] 11/25/2026 [id number] 1200 90 / / [id number] Med[employer] Abre 14mm 100mm Self Expand Rotate Thumbwheel Hemostatic Valve [id number] - [id number] Implanted:Qty: 1 on 08/04/2024 at [facility] [employer] 02/19/2027 [id number] 1000 90 / / [id number] Explanted Type Area Hot Dip Galvanizer Device Identifier Shelf Expiration Date Model / Serial / Lot [employer] [id number] 4mm 110mm Pin Fixation Sterile - Sn/A - [id number] Explanted:Qty: 1 on 10/17/2021 by Laz Nolasco MD at [facility] Pin Left: Knee [employer] [id number] / N/A / Description:For provisional purposes only [employer] 069126 4mm 140mm Knee Straight Pin Fixation Sterile - Sn/A - [id number] Explanted:Qty: 1 on 10/17/2021 by Laz Nolasco MD at [facility] Pin Left: Knee [employer] [id number] / N/A / Description:For provisional purposes only [employer] Universa 6fr 28cm Firm Positioner Monofilament Tether Stent [id number] - [id number] Implanted:Qty: 1 on 10/18/2023 by Gabriel Bennett MD at [facility] Explanted:Qty: 1 on 02/27/2024 at [facility] Stent Left: Ureter [employer] [id number] 05/22/2026 [id number] / / [id number] [employer] [id number] 6fr 26cm 145cm Radiopaque Positioner Filiform Flexible Tip - [id number] Implanted:Qty: 1 on 02/27/2024 by Temo Mcintosh MD at [facility] Explanted:Qty: 1 on 06/06/2024 by Temo Mcintosh MD at [facility] Stent Left: Ureter [employer] [id number] 12/07/2026 [id number] / / [id number] Description:Explanted comple te and intact Procedures Procedure Name Priority Date/Time Associated Diagnosis Comments ABSCESS CATHETER INJECTION Schedule Routine, Read Routine (OP Routine) 10/13/2024 9:20 AM VIDEO GAME DESIGNER Hydronephrosis with urinary obstruction due to renal calculus CT ABDOMEN PELVIS W CONTRAST Schedule Routine, Read Routine (OP Routine) 09/29/2024 4:48 PM VIDEO GAME DESIGNER Bilateral lower extremity edema POCT CREATININE - DEVICE Routine 09/29/2024 4:27 PM VIDEO GAME DESIGNER US VENOUS REFLUX BILATERAL Schedule Routine, Read Routine (OP Routine) 09/29/2024 3:27 PM VIDEO GAME DESIGNER Bilateral lower extremity edema SUPRAPUBIC CATHETER INSERTION Schedule Routine, Read Routine (OP Routine) 09/23/2024 12:24 PM VIDEO GAME DESIGNER Hydronephrosis with urinary obstruction due to renal [...] filter LIPID PANEL STAT 10/23/2023 11:02 PM VIDEO GAME DESIGNER POCT HEMOGLOBIN A1C Routine 10/11/2023 1 1:43 AM VIDEO GAME DESIGNER from Last 3 Months or Most Recently Relevant to Health Maintenance Results * IR Inject Abscess Catheter (10/13/2024 9:20 AM VIDEO GAME DESIGNER) Anatomical Region Laterality Modality Body N/A X-Ray Angiograph y 10/13/2024 11:3 7 AM VIDEO GAME DESIGNER Impressions 10/13/2024 11:37 AM VIDEO GAME DESIGNER Well-positioned suprapubic catheter. PLAN: Continue to monitor catheter output as well as the patient's clinical condition. ??Patient will be scheduled for exchange 6-8 weeks from time of initial placement. If questions arise, please contact us by calling [phone]. Electronically signed by: Nazario Peterson PA-C Narrative 10/13/2024 11:37 AM VIDEO GAME DESIGNER EXAMINATION: SUPRAPUBIC CATHETER EVALUATION HISTORY: ??74-year-old male with neurogenic bladder underwent suprapubic catheter placement on 09/23/2024. ??Patient presents today with leakage from the drainage bag as well 3 day history of mild hematuria. PROVIDER PRESENCE: Nazario Peterson PA-C, was present from the beginning to the end of the procedure. ?? SEDATION: ??No sedation TECHNIQUE: Prior to beginning the procedure, [place] Protocol was used to confirm the patient's identity and planned procedure. Fluoroscopy time has been recorded in the electronic medical record. After obtaining a equipment operator intermodal yard image, the catheter was injected with dilute [...] sedation TECHNIQUE: Prior to beginning the procedure, [place] Protocol was used to confirm the patient's identity and planned procedure. Fluoroscopy time has been recorded in the electronic medical record. After obtaining a equipment operator intermodal yard image, the catheter was injected with dilute [...] questions arise, please contact us by calling [phone]. Electronically signed by: Nazario Peterson PA-C us Corina Echavarria MD IMG IR PROCEDURES Final Re sult * CT Abdomen Pelvis W Contrast (09/29/2024 4:48 PM VIDEO GAME DESIGNER) Anatomical Region Laterality Modality Body N/A Computed Tomogra phy 09/30/2024 7:58 AM VIDEO GAME DESIGNER Impressions 09/30/2024 7:58 AM VIDEO GAME DESIGNER 1. ??Stents extending from the inferior vena [...] Yesica Bennett M.D. Narrative 09/30/2024 7:58 AM VIDEO GAME DESIGNER EXAMINATION: ??Computed tomography of the abdomen and [...] sult * POCT creatinine (09/29/2024 4:27 PM VIDEO GAME DESIGNER) Creatinine POC 0.7 0.7 - 1.3 mg/dL Blood 09/29/2024 4:27 PM VIDEO GAME DESIGNER 09/29/2024 4:27 PM VIDEO GAME DESIGNER Corina Echavarria MD LAB POCT ORDERABLES - GILBERT CE Final Result LAURA ZARAGOZA [facility]wood [facility] [place] [address] * US Venous Reflux Bilateral (09/29/2024 3:27 PM VIDEO GAME DESIGNER) Anatomical Region Laterality Modality Vascular Bilateral Ultrasound 09/29/2024 2:23 PM VIDEO GAME DESIGNER Narrative 09/29/2024 7:08 PM VIDEO GAME DESIGNER [facility] - Department of Vascular Surgery, Vascular Laboratory [address] [place] [id number] Lower Extremity Venous Reflux Duplex Report Patient Name: HIRA EVANS WILLIAM : 1950 (74y 3m) Study Date: 09/29/2024 2:23:50 PM Gender: M Tech: Location: [facility] Provider: CORINA ECHAVARRIA Quality: Adequate [...] Leg ? Left Leg - FINDINGS: Performing A And P Mechanic: Josiane Chance RVT. Patient positioning: Reflux testing [...] above. Electronically Signed By: Scott Martinez MD [facility] 09/29/2024 7:07:50 PM VIDEO GAME DESIGNER Procedure Note Scott Martinez MD - 09/29/2024 [facility] - Department of Vascular Surgery,Vascular Laboratory [address] [place] [address] Lower Extremity Venous Reflux Duplex Report Patient Name: HIRA EVANS WILLIAM : 1950 (74y 3m) Study Date: 09/29/2024 2:23:50 PM Gender: M Tech: Location: [facility] Ref Provider: CORINA ECHAVARRIA Quality: [...] Units Right LegLeft Leg - FINDINGS: Performing A And P Mechanic: Josiane Chance RVT. Patient positioning: Reflux testing [...] Scott Martinez MD FACS 09/29/2024 7:07:50 PM VIDEO GAME DESIGNER us Corina Echavarria MD IMG US PROCEDURES Final Re sult * IR Suprapubic Catheter Insertion (09/23/2024 12:24 PM VIDEO GAME DESIGNER) Anatomical Region Laterality Modality Body N/A Ultrasound 09/23/2024 12:5 2 PM VIDEO GAME DESIGNER Impressions 09/23/2024 12:52 PM VIDEO GAME DESIGNER Successful image guided suprapubic catheter tube placement. PLAN: Routine exchange in 12 weeks. Electronically signed by: Corina Echavarria M.D. Narrative 09/23/2024 12:52 PM VIDEO GAME DESIGNER EXAMINATION: ??PERCUTANEOUS SUPRAPUBIC CATHETER PLACEMENT HISTORY/INDICATION: ??74-year-old [...] was obtained. ??Prior to beginning the procedure, [place] Protocol was used to confirm the patient's [...] dilating the tract to ??16 Fr. ??A 16-Hebrew multipurpose cope loop catheter was then advanced [...] was obtained. Prior to beginning the procedure, [place] Protocol was used to confirm the patient's [...] dilating the tract to 16 Fr. A 16-Hebrew multipurpose cope loop catheter was then advanced [...] abs 0.3 0.2 - 0.8 K/cumm [facility] Eosinophil abs 0.3 0.0 - 0.5 K/cumm [facility] Basophil abs 0.0 0.0 - 0.1 K/cumm [facility] Neutrophil pct 46.5 % LAURA MARADIAGA Comment: Interpretive Data Percent cell count reference ranges are not reported, since discordance with absolute values may lead to misinterpretation of CBC data. Current Interpretive Data was last revised on 2018. Imm gran pct 0.2 % [facility] Comment: Interpretive Data Percent cell count reference ranges are not reported, since discordance with absolute values may lead to misinterpretation of CBC data. Current Interpretive Data was last revised on 2018. Lymphocyte pct 37.5 % [facility] Comment: Interpretive Data Percent cell count reference ranges are not reported, since discordance with absolute values may lead to misinterpretation of CBC data. Current Interpretive Data was last revised on 2018. Monocyte pct 7.9 % [facility] Comment: Interpretive Data Percent cell count reference ranges are not reported, since discordance with absolute values may lead to misinterpretation of CBC data. Current Interpretive Data was last revised on 2018. Eosinophil pct 7.4 % [facility] Comment: Interpretive Data Percent cell count reference ranges are not reported, since discordance with absolute values may lead to misinterpretation of CBC data. Current Interpretive Data was last revised on 2018. Basophil pct 0.5 % [facility] Comment: Interpretive Data Percent cell count reference ranges are not reported, since discordance with absolute values may lead to misinterpretation of CBC data. Current Interpretive Data was last revised on 2018. Blood 09/02/2024 11:1 3 AM CDT 09/02/2024 11:20 AM CDT us Eula Lopez [facility] LAB BLOOD ORDERABLES Fide rick Result [facility] [id number] [facility]. [place] [address] * (ABNORMAL) CBC with auto differential (09/02/2024 11:13 AM CDT) WBC 4.3 3.8 - 9.9 K/cumm Hgb 13.4 13.0 - 17.5 g/dL [facility] Hct 39.8 38.9 - 50.3 % [facility] Plt 196 150 - 400 K/cumm [facility] MPV 10.4 9.1 - 12.[address] [facility] RBC 4.12(L) 4.30 - 5.80 M/cumm [facility] MCV 96.6(H) 81.3 - 96.[address] MCH 32.5 27.1 - 33.[address] [facility] MCHC 33.7 32.3 - 35.7 g/dL [facility] RDW CV 11.9 11.1 - 14.9 % [facility] RDW SD 42.3 35.7 - 48.[address] [facility] NRBC abs 0.00 0.00 - 0.01 K/cumm [facility] Blood (Blood, Venous) 09/02/2024 11:13 AM CDT 09/02/2024 11:20 AM CDT us Eula Lopez [facility] LAB BLOOD ORDERABLES Fide l Result LAURA ZARAGOZACH [address] [facility]. [place] [address] * Blood culture Blood (09/02/2024 11:13 AM CDT) Report Final Report: No growth Comment:Testing performed by : [facility], [facility], [place]., [address] Blood 09/02/2024 11:1 3 AM CDT 09/02/2024 12:40 PM CDT Narrative LAURA MARADIAGACH - 09/07/2024 1:00 PM VIDEO GAME DESIGNER Collection->Peripheral Interpretive Data 1. Blood cultures are incubated and monitored continuously for 5 days (120 hours). The first negative report is issued within 24 hours of receipt in the laboratory. 2. All positive cultures are resulted and called to physicians/care providers as soon as they are detected. 3. A rapid molecular test for organism identification may be performed using the [employer] Film[employer] Blood Culture Identification panel. This assay detects microbial DNA in a blood culture broth. This assay has been cleared by the [facility] Food and Drug Administration and its performance characteristics have been verified by the [facility]. Interpretive data was last revised on December 07, 2022. Eula Weems Lopez [facility] LAB MICROBIOLOGY - GENERA L ORDERABLES Final Result Performing Organization Address City/[facility] Co de Phone Number LAURA ZARAGOZAWCH [address] [address] [facility]. [place] [address] * Blood culture Blood (09/02/2024 11:13 AM CDT) Report Final Report: No growth Comment:Testing performed by : [facility], [address] [place] [address]., [id number] Blood 09/02/2024 11:1 3 AM CDT 09/02/2024 12:40 PM CDT Jesica SANCHEZ [facility] - 09/07/2024 1:00 PM VIDEO GAME DESIGNER Collection->Peripheral Interpretive Data 1. Blood cultures are incubated and monitored continuously for 5 days (120 hours). The first negative report is issued within 24 hours of receipt in the laboratory. 2. All positive cultures are resulted and called to physicians/care providers as soon as they are detected. 3. A rapid molecular test for organism identification may be performed using the [employer]ter[employer] Blood Culture Identification panel. This assay detects microbial DNA in a blood culture broth. This assay has been cleared by the [place] Food and Drug Administration and its performance characteristics have been verified by the [facility]. Interpretive data was last revised on December 07, 2022. Eula Weems John [facility] LAB MICROBIOLOGY - GENERA L ORDERABLES Final Result Performing Organization Address City/[facility]/ZIP Co de Phone Number LAURA [facility] [id number] [address] [facility] [place] [address] * (ABNORMAL) Erythrocyte sedimentation rate (09/02/2024 11:13 AM CDT) Erythrocyte sedimentation rate 39(H) 1 - 20 mm/hr Blood 09/02/2024 11:1 3 AM CDT 09/02/2024 11:20 AM CDT Eula Lopez [facility] LAB BLOOD ORDERABLES Fide l Result Performing Organization Address [facility] Co ar Phone Number [facility] [address] [employer] [place] [place] [address] * CRP (acute phase) (09/02/2024 11:13 AM CDT) Pathologist [facility] [place] CRP 6.7 <=10.0 mg/L Blood 09/02/2024 11:1 3 AM CDT 09/02/2024 11:20 AM CDT Eula Lopez [facility] LAB BLOOD ORDERABLES Fide l Result Performing Organization Address [facility] Phone Number LAURA [facility] [address] [facility] Hospital[facility] [employer]. [facility] [place] [address] * XR Foot Right 3 or More [...] by: Jose Enrique Aguirre D.O. Eula Lopez [facility] IMG XR PROCEDURES Final R esult * [...] Echavarria MD LAB BLOOD ORDERABLES Final Result [facility] [address] [facility] [place] [address] * (ABNORMAL) Lipid panel (10/23/2023 11:02 PM VIDEO GAME DESIGNER) Cholesterol 162 30 - 199 mg/dL LAURA [...] on 2018. Triglycerides 134 <=149 mg/dL [facility] Comment: Interpretive Data Ages < or [...] revised on 2018. HDL 34(L) >=40 mg/dL [facility] Comment: Interpretive Data Ages [...] 2018. LDL, calculated 101 <=129 mg/dL [facility] Comment: Interpretive Data Ages < or [...] revised on 2018. Non-HDL Cholesterol 128 mg/dL [facility] Comment: Interpretive Data Ages < or [...] revised on 2018. Chol/HDL ratio 5 [facility] Blood 10/23/2023 11:0 2 PM VIDEO GAME DESIGNER 10/23/2023 11:14 PM VIDEO GAME DESIGNER Narrative [facility] - 10/24/2023 11:06 AM VIDEO GAME DESIGNER This lipid panel was automatically ordered due to a significant change in Troponin. The dietary status of the patient at the collection time should be correlated with the lipid results. us Marcial Vu Jr., MD LAB BLOOD ORDERABLE S Final Result [facility] [address] [facility] Department [place] [address] * POCT hemoglobin A1c (10/11/2023 11:43 AM VIDEO GAME DESIGNER) Hgb A1C, POC 5.5 4.0 - 5.6 % [facility] Est Average Gluc POC 111 mg/dL [facility] Comment: The ADA recommends reporting an estimated Average Glucose (eAG) with all Hemoglobin A1c results using the equation derived from a study of 507 normal and diabetic adults. ??Minority populations were underrepresented and children were not included. ?? (Diabetes Care 31:1210-3604, 2007). ??The eAG is not equivalent to a fasting glucose. Blood 10/11/2023 11:4 3 AM VIDEO GAME DESIGNER 10/11/2023 11:43 AM VIDEO GAME DESIGNER Marcial Vu Jr., MD POINT OF CARE TEST ORDERABLES Final Result [facility] [address] [facility] [place] [address] from Last 3 Months or Most Recently Relevant to Health Maintenance Insurance MEDICARE [employer] MEDICARE [facility] MEDICARE [employer] MEDICARE [employer] Advance Directives For more information, please contact: [phone] Documents on File Type Date Recorded Patient Derrickman Helper Expl anation ADVANCE DIRECTIVE 03/05/2024 7:22 PM POLST ADVANCE DIRECTIVE 10/17/2021 10:30 AM Val Evans ADVANCE DIRECTIVE 09/30/2019 11:55 AM Pow er of [employer] Tower Operator-Medical ADVANCE DIRECTIVE 09/30/2019 11:54 AM Pow er of [employer] Tower Operator-Medical * Full Code (Latest Code Status on [...] First Alternate Health Care Agent Care Teams Rn Admit Relationship Specialty Start Date End Date No, Physician PCP - General 05/26/24
--- OUTSIDE RECORDS SUMMARY | 2024-11-05 22:54 | XMS_ITS | Encounter Summary ---
Author Organization [facility] Healthcare Address [address] [place] [address] Care Team Providers Care Operational Review Sergeant Name Role Phone No, Physician Primary Care Provider [phone] Reason for Visit * Reason Comments Foot Injury Pt CC of right foot injury that has been getting worse. Encounter Details Date Type Department Care Team (Late st Contact Info) Description 09/02/2024 10:13 AM CDT - 09/02/2024 2:42 PM CDT Emergency [facility] Emergency Department [address] [place] [address] Wound of right foot (Primary Dx) Discharge Disposition: Discharge to home or self care Social History Tobacco Use Types Packs/Day Years Used Date Smoking Tobacco: Former Cigarettes 1 11 1 969 - 1980 Passive Smoke Exposure: Never Smokeless Tobacco: Never Alcohol Use Standard Drinks/Week Comments Yes 14 (1 standard drink = 0.6 oz pu re alcohol) social [employer] Utilities Answer Date Recorded In the past 12 months has [employer], gas, oil, or water [employer] threatened to shut off services in your [...] How often do you attend chur or pentecostalism services? 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 * Pressure Injury (AfterCare(R) Instructions(ER/ED)) (Icelandic) documented in this encounter Medications at Time [...] ound healing Take 1 tablet by mouth hay chopper before breakfast ondansetron ODT (ZOFRAN-ODT) 4 mg [...] 1 tablet (20 mEq total) by mouth hay chopper before breakfast 4 senna-docusate (PERICOLACE) 8.6-50 mg [...] the bone . History provided by: Patient sport internship used: No Patient History: Patient Active Problem List Diagnosis Date Noted Nephrolithiasis 12/25/2023 DVT (deep venous thrombosis) ([facility]) ([facility]) 11/29/2023 Anemia 11/29/2023 Paraspinal hematoma 11/29/2023 Hyponatremia 11/29/2023 Elevated transaminase level 11/29/2023 Lower extremity edema 11/29/2023 Scrotal swelling 11/29/2023 Seizure ([facility]) 11/29/2023 Prediabetes 11/29/2023 Kidney stone 11/09/2023 Paralysis of both lower limbs ([facility]) ([facility]) 11/07/2023 Pulmonary embolism ([facility]) 10/26/2023 S/P spinal fusion 10/23/2023 Cardiac arrest ([facility]) 10/23/2023 Left perinephric collection, 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 10/15/2023 Ureteral colic 10/13/2023 UTI (urinary tract infection) 10/13/2023 Hydronephrosis with urinary obstruction due to renal calculus 10/12/2023 Lumbar radiculopathy 10/08/2023 Gross hematuria 10/18/2022 Bladder neck obstruction 10/17/2022 Lesion of urinary bladder 10/17/2022 Prostate cancer ([facility]) 10/17/2022 HTN (hypertension) 10/10/2021 Risk factors for obstructive sleep apnea 10/10/2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 Specifically, he developed right gaze deviation and bilateral tonic clonic movements. This was followed by a cardiac arrest requiring CPR. Cauda equina compression ([facility]) DVT (deep venous thrombosis) ([facility]) ([facility]) GERD (gastroesophageal reflux disease) History of melanoma Hypertension Kidney stone Paraspinal hematoma 11/29/2023 Personal history of prostate cancer Pneumonia Pulmonary embolism ([facility]) Seasonal allergies Past Surgical History: Procedure Laterality [...] 09/02/2024 11:[address] [facility] BLOOD ORDERABLES Fide l Result Performing Organization Address [facility] Co de Phone Number LAURA MARADIAGACH [id number] [facility] [place] [place], [place] [id number] * CRP (acute phase) (09/02/2024 11:13 AM CDT) Pathologist [facility] CRP 6.7 <=10.0 mg/L Blood 09/02/2024 11:1 3 AM CDT 09/02/2024 11:[address] [facility] BLOOD ORDERABLES Fide l Result Performing Organization Address [facility] de Phone Number [facility] [address] [facility] [place], [place] [id number] * (ABNORMAL) Erythrocyte sedimentation rate (09/02/2024 11:13 AM CDT) Pathologist [facility] Erythrocyte sedimentation rate 39(H) 1 - 20 mm/hr Blood 09/02/2024 11:1 3 AM CDT 09/02/2024 11:[address] [facility] BLOOD ORDERABLES Fide l Result Performing Organization Address [facility] Co de Phone Number LAURA ZARAGOZACH [id number] [facility] [place] [address] * (ABNORMAL) CBC with auto differential (09/02/2024 11:13 AM CDT) Pathologist [facility] WBC 4.3 3.8 - 9.9 K/cumm Hgb 13.4 13.0 - 17.5 g/dL [facility] Hct 39.8 38.9 - 50.3 % [facility] Plt 196 150 - 400 K/cumm [facility] MPV 10.4 9.1 - 12.3 fL LAURA ESPINOZA RBC 4.12(L) 4.30 - 5.80 M/cumm LAURA ESPINOZA MCV 96.6(H) 81.3 - 96.4 fL LAURA ZARAGOZASHANIQUE MCH 32.5 27.1 - 33.3 pg LAURA ESPINOZA MCHC 33.7 32.3 - 35.7 g/dL [facility] RDW CV 11.9 11.1 - 14.9 % [facility] RDW SD 42.3 35.7 - 48.1 fL [facility] NRBC abs 0.00 0.00 - 0.01 K/cumm [facility] Blood (Blood, Venous) 09/02/2024 11:13 AM CDT 09/02/2024 11:[address] [facility] BLOOD ORDERABLES Fide rick Result [facility] [address] [facility]. Department [place] [address] * Blood culture Blood (09/02/2024 11:13 AM CDT) Report Final Report: No growth Comment:Testing performed by : [facility], [facility], [place]., [address] Blood 09/02/2024 11:1 3 AM CDT 09/02/2024 12:40 PM CDT Narrative LAURA MARADIAGA - 09/07/2024 1:00 PM WEIGH MACHINE OPERATOR Collection->Peripheral Interpretive Data 1. Blood cultures are incubated and monitored continuously for 5 days (120 hours). The first negative report is issued within 24 hours of receipt in the laboratory. 2. All positive cultures are resulted and called to physicians/care providers as soon as they are detected. 3. A rapid molecular test for organism identification may be performed using the Rebelle Blood Culture Identification panel. This assay detects microbial DNA in a blood culture broth. This assay has been cleared by the [place] Food and Drug Administration and its performance characteristics have been verified by the [facility]. Interpretive data was last revised on December 07, 2022. Eula Lopez [facility] MICROBIOLOGY - GENERA L ORDERABLES Final Result Performing Organization Address [facility] Co de Phone Number LAURA ZARAGOZAWCH [address] [place] [address] * Blood culture Blood (09/02/2024 11:13 AM CDT) Report Final Report: No growth Comment:Testing performed by : [facility], [facility], [place]., [address] Blood 09/02/2024 11:1 3 AM CDT 09/02/2024 12:40 PM CDT Narrative BAKARIMICHAEL ZARAGOZAMENA - 09/07/2024 1:00 PM WEIGH MACHINE OPERATOR Collection->Peripheral Interpretive Data 1. Blood cultures are incubated and monitored continuously for 5 days (120 hours). The first negative report is issued within 24 hours of receipt in the laboratory. 2. All positive cultures are resulted and called to physicians/care providers as soon as they are detected. 3. A rapid molecular test for organism identification may be performed using the Rebelle Blood Culture Identification panel. This assay detects microbial DNA in a blood culture broth. This assay has been cleared by the [place] Food and Drug Administration and its performance characteristics have been verified by the [facility]. Interpretive data was last revised on December 07, 2022. Eula Lopez [facility] MICROBIOLOGY - GENERA L ORDERABLES Final Result Performing Organization Address [facility] Co de Phone Number LAURA BJWCH [id number] [place] [address] * XR Foot Right 3 or More [...] Primary documented in this encounter Care Teams Operational Review Sergeant Relationship Specialty Start Date End Date No, Physician PCP - General 05/26/24 documented as of this encounter
--- OUTSIDE RECORDS SUMMARY | 2024-11-05 22:54 | XMS_ITS | Clinical Summary ---
Author Organization [facility] Address [address] [place] [phone] Care Team Providers Care Binder And Wrapper Packer Name Role Phone No, Physician Primary Care Provider [phone] Allergies No known active allergies Medications bisacodyL (DULCOLAX) 10 mg suppositoryIndica tions:constipatio n Insert 1 suppository (10 mg total) into the rectum daily as needed for constipation Active furosemide (LASIX) 40 mg tablet Take 1 tablet (40 mg total) by mouth 2 (two) times a day 024 2024 Active Additional Information Patient taking differently:40 mg oralDaily before breakfast, Indications: Edema, Informant: [facility], Reported on 10/22/2024 gabapentin (NEURONTIN) 600 mg tabletIndications :Pain Take 1 tablet (600 mg total) by mouth 3 (three) times a day 024 2024 Active Additional Information Patient taking differently:600 mg oral3 times daily PRN, pain, (No indications reported), Informant: [facility], Reported on 10/22/2024 miconazole 2 % powder Apply topically 2 (two) times a day Active Additional Information Patient taking differently: 1 Applicationtopical 2 times daily,Indications: apply to groin area, Informant: [facility], Reported on 10/22/[address] (PROTONIX) 40 mg EC tabletIndications :Treatment of Non-Bleeding Gastric Disorder Take 1 tablet (40 mg total) by mouth daily 2024 Active Additional Information Patient taking differently:40 mg oralEvery morning, Indications: Treatment of Non-Bleeding Gastric Disorder, acid reflux, Informant: [facility], Reported on 10/22/2024 senna-docusate (PERICOLACE) 8.6-50 mg Take 1 tablet by mouth nightly Active Additional Information Patient taking differently:1 tablet oralDaily (early AM), Indications: constipation, Informant: [facility], Reported on 10/22/2024 tamsulosin (FLOMAX) [...] 6 hours PRN, pain,(No indications reported), Informant: [facility], Reported on 10/22/2024 multivitamin tabletIndications :wound healing Take 1 tablet by mouth 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 machine operator before breakfast Active metOLazone (ZAROXOLYN) 5 mg tablet Take 1 tablet (5 mg total) by mouth daily Act jania potassium chloride ER 20 mEq CR tabletIndications :supplement Take 1 tablet (20 mEq total) by mouth strap machine operator before breakfast Active Mounjaro 10 mg/0.5 mL [...] times daily, Indications: bladder spasm/stent pain, Informant: [facility], Reported on 10/22/2024 cetirizine (ZyrTEC) [...] 10/24/2024 Nephrolithiasis 12/25/2023 DVT (deep venous thrombosis) ([facility]) Assessment & Plan (12/10/2023 2:44 PM SCIENTIFIC WRITER): Patient with complex history with cardiac arrest [...] 11/29/2023 Assessment & Plan (11/29/2023 7:17 PM SCIENTIFIC WRITER): - Stable Hgb ~8 - Maintain Hgb > 7 Paraspinal hematoma 11/29/2023 Assessment & Plan (12/01/2023 12:39 PM SCIENTIFIC WRITER): - Occurred on therapeutic anticoagulation in setting of recent lumbar decompression, with subsequent LE paralysis and emergent hematoma evacuation on 11/07 - Directly-admitted from [facility] - PT/OT - Orthopedics following - had sutures removed on 11/30 - note had some drainage from sutures, plan 7-10d course SSTI antibiotics using Bactrim for now - anticoagulation as elsewhere (see DVT ) Hyponatremia 11/29/2023 Assessment & Plan (12/07/2023 11:50 AM SCIENTIFIC WRITER): Improved. Na low 130s over the past week, has improved with improved oral intake and remains in normal range with initiation of diuretic therapy. - CTM on lasix Elevated transaminase level 11/29/2023 Assessment & Plan (12/04/2023 11:59 AM SCIENTIFIC WRITER): - AST 65, ALT 80, new on arrival- Unclear etiology at this time - possibly from IVC compression/distention in setting of potential thrombi? - Improving - will hold off on further imaging Lower extremity edema 11/29/2023 Assessment & Plan (12/01/2023 12:38 PM SCIENTIFIC WRITER): - Eval/mgt per above. NT-proBNP 105. Scrotal swelling 11/29/2023 Assessment & Plan (12/10/2023 2:44 PM SCIENTIFIC WRITER): - In setting of presumed DVT - no evidence of infection on exam - Scrotal Sling - Maintain sofia catheter - DVT mgt per above - for edema, will continue IV lasix 40 mg BID, monitor electrolytes - at discharge will discharge on PO lasix 40 mg BID Seizure 11/29/2023 Assessment & Plan (11/29/2023 7:16 PM SCIENTIFIC WRITER): - Patient developed reported seizure on 10/23 during or prior to cardiac arrest with bilateral SDH noted on imaging - placed on keppra through follow-up with [facility] next month Prediabetes 11/29/2023 Assessment & Plan (11/29/2023 7:22 PM SCIENTIFIC WRITER): - Was on mounjaro as outpatient - has required intermittent SSI at [facility] - Diabetic diet, SSI ordered Kidney stone 11/09/2023 Paraplegia 11/07/2023 Assessment & Plan (11/29/2023 7:15 PM SCIENTIFIC WRITER): - Patient with paralysis of LE following recent spinal hematoma s/p emergent evacuation on 11/07 - Ongoing 11/09 strength of LE, sensation intact - Fall precautions Pulmonary embolism 10/26/2023 Assessment & Plan (11/29/2023 7:16 PM SCIENTIFIC WRITER): - Eval/mgt per above Assessment & Plan (10/26/2023 5:11 PM SCIENTIFIC WRITER): Patient with new PE on CT PE [...] 10/15/2023 Assessment & Plan (10/20/2023 2:57 PM SCIENTIFIC WRITER): Likely post procedure complication. Urology following - CT urogram on 10/16 notes presence of L perinephric hematoma - Continue to trend white count, renal function and fever curve Ureteral colic 10/13/2023 UTI (urinary tract infection) 10/13/2023 Assessment & Plan (12/10/2023 2:43 PM SCIENTIFIC WRITER): - Patient diagnosed with UTI in setting [...] urology. Assessment & Plan (10/20/2023 2:58 PM SCIENTIFIC WRITER): - Complicated UTI with the presence of left ureteral stone and Pyelitis - urine culture grew E-coli which is pansusceptible. - Discussion with urology and orthopedic surgery: continue Keflex 500 mg q6hr as it appears patient will stay in-house until OR on 10/22-10/23 -Antibiotics as above. Hydronephrosis with urinary obstruction due to renal calculus 10/12/2023 Assessment & Plan (12/07/2023 1:48 PM SCIENTIFIC WRITER): - Patient with noted progressed hydronephrosis during [...] back Assessment & Plan (10/19/2023 12:54 PM SCIENTIFIC WRITER): Presented with generalized weakness with fever and [...] 10/08/2023 Assessment & Plan (10/20/2023 2:57 PM SCIENTIFIC WRITER): He has been planned for plan for [...] (10/18/2022): Added automatically from request for surgery [id number] Bladder neck obstruction 10/17/2022 Lesion of urinary bladder 10/17/2022 Prostate cancer 10/17/2022 Assessment & Plan (11/29/2023 7:14 PM SCIENTIFIC WRITER): - s/p prostatectomy Assessment & Plan (10/13/2023 5:39 AM SCIENTIFIC WRITER): S/p postprostatectomy HTN (hypertension) 10/10/2021 Assessment & Plan (11/29/2023 7:14 PM SCIENTIFIC WRITER): - Cont diltiazem - home ARB has been on hold at [facility] - continue to hold here initially Assessment & Plan (10/15/2023 9:11 AM SCIENTIFIC WRITER): Hold home irbesartan Restart diltiazem xl Risk factors for obstructive sleep apnea 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[facility]) 019 Overview (08/07/2019): Added automatically from request for surgery [id number] Presence of right artificial knee joint 12/21/20 18 Primary osteoarthritis of left knee 10/25/2018 Localized adiposity 07/17/2018 Knee pain 10/24/2016 Encounters Date Type Department Care Team Description 10/22/2024 9:00 AM SCIENTIFIC WRITER Office Visit [facility] Orthopaedic Surgery [address] [facility] Advanced Medicine 12th [place] [address] [place] [address] Joleen Cantor MD Paraplegia (HCC) (Primary Dx); S/P laminectomy with spinal fusion; Injury of thoracic spinal cord, subsequent encounter (HCC); Immobility syndrome (paraplegic); 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, initial encounter (HCC); Neurogenic bladder; Neurogenic bowel; Impaired mobility and ADLs 10/13/2024 8:30 AM SCIENTIFIC WRITER - 10/13/2024 11:59 PM SCIENTIFIC WRITER Hospital Encounter [facility] [address] [place] [address] Krista Aleman RN Despins, Jo Ann Torres, Kassy Locke, RT Anjana Gee RN Hydronephrosis with urinary obstruction due to renal calculus Discharge Disposition: Discharge to home or self care 10/10/2024 Telephone [facility] [address] [place] [address] Leticia Donahue RN 10/09/2024 Telephone [facility] Hematology [address] [facility] Floor 6 [place] [address] Oneyda Kaur RN 10/06/2024 Telephone [facility] Radiology [address] [facility] [place] [address] Viry Stroud RN 09/29/2024 3:40 PM SCIENTIFIC WRITER - 09/29/2024 11:59 PM SCIENTIFIC WRITER Hospital Encounter [facility] Radiology [facility] [place] [address] Corina Echavarria MD Bilateral lower extremity edema Discharge Disposition: Discharge to home or self care 09/29/2024 1:00 PM SCIENTIFIC WRITER Ancillary Procedure [facility] Vascular [facility] [address] [place] [address] [facility] 8th [place] [address] [place] [address] Bilateral lower extremity edema 09/24/2024 Telephone [facility] [address] [place], [place] [address] Leticia Donahue RN 09/23/2024 10:55 AM SCIENTIFIC WRITER - 09/23/2024 11:59 PM SCIENTIFIC WRITER Hospital Encounter [facility] [address] [place] [address] Corina Echavarria MD Noonan, Caitlin Therese, Anjana Delgadillo RN Hydronephrosis with urinary obstruction due to renal calculus Discharge Disposition: Discharge to home or self care 09/22/2024 [facility] [address] [place], [place] [address] Leticia Donahue RN 09/17/2024 Telephone [facility] Radiology 1 [place] [address] Viry Stroud RN 09/16/2024 Telephone [facility] [address] [place], [place] [address] Leticia Donahue RN 09/15/2024 10:00 AM SCIENTIFIC WRITER Office Visit [facility] Radiology, Interventional Radiology [address] [facility] [address] [place] [address] Corina Echavarria MD Bilateral lower extremity edema (Primary Dx) 09/08/2024 Telephone [facility] Radiology 1 [place] [address] Viry Stroud, NARENDRA 09/08/2024 Orders Only [facility] Surgery [address] [place] [address] Temo Mcintosh MD Hydronephrosis with urinary obstruction due to renal calculus (Primary Dx); Renal failure, unspecified chronicity 09/05/2024 Orders Only [facility] Surgery [address] [place] [address] Temo Mcintosh MD Hydronephrosis with urinary obstruction due to renal calculus (Primary Dx) 09/05/2024 Orders Only [facility] Radiology 1 [place] [address] Meryl Longoria RN 09/04/2024 Telephone [facility] Orthopaedic Surgery [address] [facility] [address] [place] [phone] Marcial Vu Jr., MD Scheduling Appointments 09/03/2024 Orders Only [facility] Radiology 1 [place] [address] Meryl Longoria RN 09/02/2024 10:13 AM CDT - 09/02/2024 2:42 PM CDT Emergency [facility] [address] [place] [address] Wound of right foot (Primary Dx) Discharge Disposition: Discharge to home or self care 09/01/2024 Telephone [facility] Infectious Diseases [address] [place] [address] [address] [place] [phone] Caitlin Hussein BS 09/01/2024 Orders Only [facility] Radiology 1 [place] [address] Meryl Longoria RN 08/25/2024 3:30 PM CDT Telemedicine [facility] Hematology [address] [facility] Floor 6 [place] [address] Katharine Hampton MD Anticoagulant long-term use (Primary Dx); Personal history of venous thrombosis and embolism; Pulmonary embolism, unspecified chronicity, unspecified pulmonary embolism type, unspecified whether acute cor pulmonale present (HCC) 08/25/2024 Orders Only [facility] Surgery [address] [place] [address] Temo Mcintosh MD Hydronephrosis with urinary obstruction due to renal calculus (Primary Dx) 08/25/2024 Orders Only [facility] Surgery [address] [place] [address] Temo Mcintosh MD Hydronephrosis with urinary obstruction due to renal calculus (Primary Dx) 08/21/2024 Telephone [facility] Surgery [address] [place] [address] Des Gay BS 08/14/2024 3:00 PM CDT Office Visit [facility] Surgery [address] [facility] Medical [facility] Building, [address] [place] [address] Corry Lopez, CARLA 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 Urology [address] [facility] Medicine 11th [place] [address] [place] [address] Chad Vivas 08/05/2024 Telephone [facility] Radiology 1 [place], [place] [id number] Viry Stroud, RN 08/05/2024 Telephone [facility] Radiology 1 [place], [place] [id number] Viry Stroud, RN from Last 3 Months [...] re alcohol) social [facility] Utilities Answer Date Recorded In the [...] often do you attend chur ch or faith services? 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 Not on file Not on file Not on file Obstetrics History Last Filed Vital Signs Vital Sign Reading Time Taken Comments Blood Pressure 126/80 10/22/2024 8:54 AM SCIENTIFIC WRITER Pulse 67 10/22/2024 8:54 AM SCIENTIFIC WRITER Temperature 36.9 ??C (98.5 ??F) 10/13/2024 8:38 AM CS T Respiratory Rate 16 10/13/2024 8:38 AM SCIENTIFIC WRITER Oxygen Saturation 98% 10/13/2024 8:38 AM SCIENTIFIC WRITER Inhaled Oxygen Concentration - - Weight 90.7 kg (200 lb) 10/22/2024 8:54 AM SCIENTIFIC WRITER Height 172.7 cm (5' 8 ) 09/23/2024 11:35 AM SCIENTIFIC WRITER Body Mass Index 30.41 09/23/2024 11:35 AM SCIENTIFIC WRITER Plan of Treatment Health Maintenance Due Date [...] history exists Medical Devices Implanted Type Area Weather Reporter Device Identifier Shelf Expiration Date Model / Serial / Lot [employer] 6197-9-010 Simplex P Full Dose Radiopaque Preblend Cement Bone Tobramycin - S0 - [id number] Implanted:Qty: 2 on 09/30/2019 by Fransisco Heard MD at [facility] Bone Cement Right: Knee [employer] [id number] 11/04/2020 6197-9-010 / 0 / [id number] [employer]/O rtho [id number] Kandace Ii 15mm Constrain Knee 5-6 Insert Articular Uhmwpe - S0 - [id number] Implanted:Qty: 1 on 09/30/2019 by Fransisco Heard MD at [facility] Other - see comments Right: Knee [employer]/ Ortho 03/13/2029 [id number] / 0 / [id number] [employer]/O rtho [id number] Legion 10mm Screw Knee 6 Wedge Femoral - S0 - [id number] Implanted:Qty: 1 on 09/30/2019 by Fransisco Heard MD at [facility] Other - see comments Right: Knee [employer]/ Ortho [id number] 10/04/2022 [id number] / 0 / [employer]/O rtho [id number] Legion Constrain Knee Right 6 Component Femoral Oxinium - S0 - [id number] Implanted:Qty: 1 on 09/30/2019 by Fransisco Heard MD at [facility] Other - see comments Right: Knee [employer]/ Ortho 05/26/2028 [id number] / 0 / [id number] [employer]O rtho [id number] Legion 5mm Alcon Step Knee Right Medial Left Lateral 5-6 Wedge - S0 - [id number] Implanted:Qty: 1 on 09/30/2019 by Fransisco Heard MD at [facility] Other - see comments Right: Knee [employer] Ortho [id number] 06/03/2024 [id number] / 0 / [employer]O rtho [id number] Legion 15mm 160mm Press Fit Knee Stem Femoral - S0 - [id number] Implanted:Qty: 1 on 09/30/2019 by Fransisco Heard MD at [facility] Other - see comments Right: Knee [employer]/ Ortho 01/09/2028 [id number] / 0 / [id number] [employer]/O rtho [id number] Legion 10mm Screw Knee 6 Wedge Femoral - S0 - [id number] Implanted:Qty: 1 on 09/30/2019 by Fransisco Heard MD at [facility] Other - see comments Right: Knee [employer] Ortho 03/04/2020 [id number] / 0 / [id number] [employer] rtho [id number] Legion Revision Knee Right 5 Baseplate Tibial - S0 - [id number] Implanted:Qty: 1 on 09/30/2019 by Fransisco Heard MD at [facility] Other - see comments Right: Knee [employer] Ortho [id number] 08/28/2026 [id number] / 0 [id number] [employer]/O rtho [id number] Legion 15mm 160mm Press Fit Knee Stem Femoral - S0 - [id number] Implanted:Qty: 1 on 09/30/2019 by Fransisco Heard MD at [facility] Other - see comments Right: Knee [employer] Ortho [id number] 06/21/2028 [id number] / 0 [id number] [employer] 5517-F-501 Triathlon Cruciate Retain Bead Knee Left 5 Component Femoral Pa - Sn/A - [id number] Implanted:Qty: 1 on 10/17/2021 by Laz Nolasco MD at [facility] Other - see comments Left: Knee [employer] [id number] 08/09/2026 5517-F-501 / N/A / [id number] [employer] 5536-B-600 Triathlon Knee 6 Baseplate Tibial Tritanium - Sn/A - [id number] Implanted:Qty: 1 on 10/17/2021 by Laz Nolasco MD at [facility] Other - see comments Left: Knee [employer] [id number] 07/24/2026 5536-B-600 / N/A / [id number] [employer] 1121-N-969-E Insert Tibial Triathlon 6 H10mm Knee Bearing Condylar Stabilize Sterile - Sn/A - [id number] Implanted:Qty: 1 on 10/17/2021 by Laz Nolasco MD at [facility] Other - see comments Left: Knee [employer] [id number] 08/02/2026 5531-G-610 -E / N/A / [id number] Total Joint Bilatera l: Knee [employer] 6197-9-010 Simplex P Full Dose Radiopaque Preblend Cement Bone Tobramycin - [id number] Implanted:Qty: 2 on 09/30/2019 by Fransisco Heard MD at [facility] Right: Knee [employer] [id number] 6197-9-010 / / Allosource Crushed Chip Frozen Graft 30ml Bone Cancellous [id number] - [id number] Implanted:Qty: 1 on 10/23/2023 by Marcial Vu Jr., MD at [facility] N/A: Spine Lumbar [employer] 06/05/2028 [id number] / / [id number] [employer] Inc Allograft Bone Putty 2.5cc 700-025 - [id number] Implanted:Qty: 1 on 10/23/2023 by Marcial Vu Jr., MD at [facility] N/A: Spine Lumbar [employer] [id number] 01/02/2026 700-025 / / [id number] [employer] Creo Od7.5 Mm L55 Mm Thread Polyaxial Spine Screw Bone Titanium 5146.1757 - [id number] Implanted:Qty: 1 on 10/23/2023 by Marcial Vu Jr., MD at [facility] N/A: Spine Lumbar [employer] 5146.1757 / / [employer] Creo Od7.5 Mm L50 Mm Thread Polyaxial Spine Screw Bone Titanium 5146.1752 - [id number] Implanted:Qty: 3 on 10/23/2023 by Marcial Vu Jr., MD at [facility] N/A: Spine Lumbar [employer] 5146.1752 / / [employer] Creo Thread Spinal Cap Locking Nonsterile 1119.0010 - [id number] Implanted:Qty: 4 on 10/23/2023 by Marcial Vu Jr., MD at [facility] N/A: Spine Lumbar [employer] 1119.0010 / / [employer] Implant Spinal Sable [id number] 7-14mm 15 Deg 1172.2121s - [id number] Implanted:Qty: 1 on 10/23/2023 by Marcial Vu Jr., MD at [facility] N/A: Spine Lumbar [employer] 1172.2121S / / [employer] Creo 5.5mm 45mm Curve Daniel Spinal Titanium 1119.7045 - [id number] Implanted:Qty: 2 on 10/23/2023 by Marcial Vu Jr., MD at [facility] N/A: Spine Lumbar [employer] 1119.7045 / / [id number] Rex Arevalo Navalign 30mm 7fr 50mm 65cm Introducer Sheath [id number] - [id number] Implanted:Qty: 1 on 11/09/2023 at [facility] [employer] 05/02/2026 [id number] / / [id number] Med[employer] Inc Abre 14mm 150mm Self Expand Rotate Thumbwheel Hemostatic Valve [id number] - [id number] Implanted:Qty: 1 on 08/04/2024 at [facility] [employer] Inc 04/18/2027 [id number] 1500 90 / / [id number] Med[employer] Inc Abre 14mm 150mm Self Expand Rotate Thumbwheel Hemostatic Valve [id number] - [id number] Implanted:Qty: 1 on 08/04/2024 at [facility] [employer] 10/10/2026 [id number] 1500 90 / / [id number] Med[employer] Inc Abre 14mm 120mm Self Expand Rotate Thumbwheel Hemostatic Valve [id number] - [id number] Implanted:Qty: 1 on 08/04/2024 at [facility] [employer] 11/25/2026 [id number] 1200 90 / / [id number] [employer] Abre 14mm 100mm Self Expand Rotate Thumbwheel Hemostatic Valve [id number] - [id number] Implanted:Qty: 1 on 08/04/2024 at [facility] [employer] Inc 02/19/2027 [id number] 1000 90 / / [id number] Explanted Type Area Weather Reporter Device Identifier Shelf Expiration Date Model / Serial / Lot [employer] [id number] 4mm 110mm Pin Fixation Sterile - Sn/A - [id number] Explanted:Qty: 1 on 10/17/2021 by Laz Nolasco MD at [facility] Pin Left: Knee [employer] [id number] / N/A / Description:For provisional purposes only [employer] [id number] 4mm 140mm Knee Straight Pin Fixation Sterile - Sn/A - [id number] Explanted:Qty: 1 on 10/17/2021 by Laz Nolasco MD at [facility] Pin Left: Knee [employer] [id number] / N/A / Description:For provisional purposes only [employer] Universa 6fr 28cm Firm Positioner Monofilament Tether Stent [id number] - [id number] Implanted:Qty: 1 on 10/18/2023 by Gabriel Bennett MD at [facility] Explanted:Qty: 1 on 02/27/2024 at [facility] Stent Left: Ureter [employer] [id number] 05/22/2026 I05699 / / [id number] [employer] [id number] 6fr 26cm 145cm Radiopaque Positioner Filiform Flexible Tip - [id number] Implanted:Qty: 1 on 02/27/2024 by Temo Mcintosh MD at [facility] Explanted:Qty: 1 on 06/06/2024 by Temo Mcintosh MD at [facility] Stent Left: Ureter [employer] [id number] 12/07/2026 [id number] / / [id number] Description:Explanted comple te and intact Procedures Procedure Name Priority Date/Time Associated Diagnosis Comments ABSCESS CATHETER INJECTION Schedule Routine, Read Routine (OP Routine) 10/13/2024 9:20 AM SCIENTIFIC WRITER Hydronephrosis with urinary obstruction due to renal calculus CT ABDOMEN PELVIS W CONTRAST Schedule Routine, Read Routine (OP Routine) 09/29/2024 4:48 PM SCIENTIFIC WRITER Bilateral lower extremity edema POCT CREATININE - DEVICE Routine 09/29/2024 4:27 PM SCIENTIFIC WRITER US VENOUS REFLUX BILATERAL Schedule Routine, Read Routine (OP Routine) 09/29/2024 3:27 PM SCIENTIFIC WRITER Bilateral lower extremity edema SUPRAPUBIC CATHETER INSERTION Schedule Routine, Read Routine (OP Routine) 09/23/2024 12:24 PM SCIENTIFIC WRITER Hydronephrosis with urinary obstruction due to renal [...] filter LIPID PANEL STAT 10/23/2023 11:02 PM SCIENTIFIC WRITER POCT HEMOGLOBIN A1C Routine 10/11/2023 1 1:43 AM SCIENTIFIC WRITER from Last 3 Months or Most Recently Relevant to Health Maintenance Results * IR Inject Abscess Catheter (10/13/2024 9:20 AM SCIENTIFIC WRITER) Anatomical Region Laterality Modality Body N/A X-Ray Angiograph y 10/13/2024 11:3 7 AM SCIENTIFIC WRITER Impressions 10/13/2024 11:37 AM SCIENTIFIC WRITER Well-positioned suprapubic catheter. PLAN: Continue to monitor catheter output as well as the patient's clinical condition. ??Patient will be scheduled for exchange 6-8 weeks from time of initial placement. If questions arise, please contact us by calling [phone]. Electronically signed by: Nazario Peterson PA-C Narrative 10/13/2024 11:37 AM SCIENTIFIC WRITER EXAMINATION: SUPRAPUBIC CATHETER EVALUATION HISTORY: ??74-year-old male with neurogenic bladder underwent suprapubic catheter placement on 09/23/2024. ??Patient presents today with leakage from the drainage bag as well 3 day history of mild hematuria. PROVIDER PRESENCE: Nazario Peterson PA-C, was present from the beginning to the end of the procedure. ?? SEDATION: ??No sedation TECHNIQUE: Prior to beginning the procedure, [place] Protocol was used to confirm the patient's identity and planned procedure. Fluoroscopy time has been recorded in the electronic medical record. After obtaining a glove finisher image, the catheter was injected with dilute [...] sedation TECHNIQUE: Prior to beginning the procedure, [place] Protocol was used to confirm the patient's identity and planned procedure. Fluoroscopy time has been recorded in the electronic medical record. After obtaining a glove finisher image, the catheter was injected with dilute [...] questions arise, please contact us by calling [phone]. Electronically signed by: Nazario Peterson PA-C us Corina Echavarria MD IMG IR PROCEDURES Final Re sult * CT Abdomen Pelvis W Contrast (09/29/2024 4:48 PM SCIENTIFIC WRITER) Anatomical Region Laterality Modality Body N/A Computed Tomogra phy 09/30/2024 7:58 AM SCIENTIFIC WRITER Impressions 09/30/2024 7:58 AM SCIENTIFIC WRITER 1. ??Stents extending from the inferior vena [...] Yesica Bennett M.D. Narrative 09/30/2024 7:58 AM SCIENTIFIC WRITER EXAMINATION: ??Computed tomography of the abdomen and [...] sult * POCT creatinine (09/29/2024 4:27 PM SCIENTIFIC WRITER) Creatinine POC 0.7 0.7 - 1.3 mg/dL Blood 09/29/2024 4:27 PM SCIENTIFIC WRITER 09/29/2024 4:27 PM SCIENTIFIC WRITER Corina Echavarria MD LAB POCT ORDERABLES - GILBERT CE Final Result [facility] Department [place] [address] * US Venous Reflux Bilateral (09/29/2024 3:27 PM SCIENTIFIC WRITER) Anatomical Region Laterality Modality Vascular Bilateral Ultrasound 09/29/2024 2:23 PM SCIENTIFIC WRITER Narrative 09/29/2024 7:08 PM SCIENTIFIC WRITER [facility] - Department of Vascular Surgery, Vascular Laboratory [address] [place] [address] Lower Extremity Venous Reflux Duplex Report Patient Name: HIRA EVANS WILLIAM : 1950 (74y 3m) Study Date: 09/29/2024 2:23:50 PM Gender: M Tech: Location: [facility] Provider: CORINA ECHAVARRIA Quality: Adequate Order Provider: [...] Leg ? Left Leg - FINDINGS: Performing Law Enforcement Director: Josiane Chance RVT. Patient positioning: Reflux testing [...] Scott Martinez MD FACS 09/29/2024 7:07:50 PM SCIENTIFIC WRITER Procedure Note Scott Martinez MD - 09/29/2024 [facility] - Department of Vascular Surgery,Vascular Laboratory [address] [place], [place] [id number] Lower Extremity Venous Reflux Duplex Report Patient Name: HIRA EVANS WILLIAM : 1950 (74y 3m) Study Date: 09/29/2024 2:23:50 PM Gender: M Tech: Location: [facility] Ref Provider: CORINA ECHAVARRIA Quality: Adequate [...] Units Right LegLeft Leg - FINDINGS: Performing Law Enforcement Director: Josiane Chance RVT. Patient positioning: Reflux testing [...] Scott Martinez MD FACS 09/29/2024 7:07:50 PM SCIENTIFIC WRITER us Corina Echavarria MD IMG US PROCEDURES Final Re sult * IR Suprapubic Catheter Insertion (09/23/2024 12:24 PM SCIENTIFIC WRITER) Anatomical Region Laterality Modality Body N/A Ultrasound 09/23/2024 12:5 2 PM SCIENTIFIC WRITER Impressions 09/23/2024 12:52 PM SCIENTIFIC WRITER Successful image guided suprapubic catheter tube placement. PLAN: Routine exchange in 12 weeks. Electronically signed by: Corina Echavarria M.D. Narrative 09/23/2024 12:52 PM SCIENTIFIC WRITER EXAMINATION: ??PERCUTANEOUS SUPRAPUBIC CATHETER PLACEMENT HISTORY/INDICATION: ??74-year-old [...] was obtained. ??Prior to beginning the procedure, [place] Protocol was used to confirm the patient's [...] dilating the tract to ??16 Fr. ??A 16-Dutch multipurpose cope loop catheter was then advanced [...] was obtained. Prior to beginning the procedure, [place] Protocol was used to confirm the patient's [...] dilating the tract to 16 Fr. A 16-Dutch multipurpose cope loop catheter was then advanced [...] on 2018. Lymphocyte pct 37.5 % [facility] Comment: Interpretive Data Percent cell count reference ranges are not reported, since discordance with absolute values may lead to misinterpretation of CBC data. Current Interpretive Data was last revised on 2018. Monocyte pct 7.9 % [facility] Comment: Interpretive Data Percent cell count reference ranges are not reported, since discordance with absolute values may lead to misinterpretation of CBC data. Current Interpretive Data was last revised on 2018. Eosinophil pct 7.4 % [facility] Comment: Interpretive Data Percent cell count reference ranges are not reported, since discordance with absolute values may lead to misinterpretation of CBC data. Current Interpretive Data was last revised on 2018. Basophil pct 0.5 % [facility] Comment: Interpretive Data Percent cell count reference ranges are not reported, since discordance with absolute values may lead to misinterpretation of CBC data. Current Interpretive Data was last revised on 2018. Blood 09/02/2024 11:1 3 AM CDT 09/02/2024 11:20 AM CDT us Eula Lopez [facility] LAB BLOOD ORDERABLES Fide rick Result [facility] [address] [facility]. Department [place] [address] * (ABNORMAL) CBC with auto differential (09/02/2024 11:13 AM CDT) WBC 4.3 3.8 - 9.9 K/cumm Hgb 13.4 13.0 - 17.5 g/dL [facility] Hct 39.8 38.9 - 50.3 % [facility] Plt 196 150 - 400 K/cumm [facility] MPV 10.4 9.1 - 12.3 fL [facility] RBC 4.12(L) 4.30 - 5.80 M/cumm [facility] MCV 96.6(H) 81.3 - 96.4 fL [facility] MCH 32.5 27.1 - 33.3 pg [facility] MCHC 33.7 32.3 - 35.7 g/dL [facility] RDW CV 11.9 11.1 - 14.9 % [facility] RDW SD 42.3 35.7 - 48.1 fL [facility] NRBC abs 0.00 0.00 - 0.01 K/cumm [facility] Blood (Blood, Venous) 09/02/2024 11:13 AM CDT 09/02/2024 11:20 AM CDT Eula Lopez [facility] LAB BLOOD ORDERABLES Fide l Result Performing Organization Address [facility]/ZIP Co de Phone Number [facility] [address] [employer]. Department [place] [address] * Blood culture Blood (09/02/2024 11:13 AM CDT) Report Final Report: No growth Comment:Testing performed by : [facility], [address] [place] [address]., [id number] Blood 09/02/2024 11:1 3 AM CDT 09/02/2024 12:40 PM CDT Narrative [facility] - 09/07/2024 1:00 PM SCIENTIFIC WRITER Collection->Peripheral Interpretive Data 1. Blood cultures are incubated and monitored continuously for 5 days (120 hours). The first negative report is issued within 24 hours of receipt in the laboratory. 2. All positive cultures are resulted and called to physicians/care providers as soon as they are detected. 3. A rapid molecular test for organism identification may be performed using the [employer] Blood Culture Identification panel. This assay detects microbial DNA in a blood culture broth. This assay has been cleared by the [place] Food and Drug Administration and its performance characteristics have been verified by the [facility]. Interpretive data was last revised on December 07, 2022. Eula Lopez [facility] LAB MICROBIOLOGY - GENERA L ORDERABLES Final Result Performing Organization Address City/[facility]/ZIP Co de Phone Number [facility] [address] [address] [facility] [place] [address] * Blood culture Blood (09/02/2024 11:13 AM CDT) Report Final Report: No growth Comment:Testing performed by : [facility], [facility], [place]., [address] Blood 09/02/2024 11:1 3 AM CDT 09/02/2024 12:40 PM CDT Narrative [facility] - 09/07/2024 1:00 PM SCIENTIFIC WRITER Collection->Peripheral Interpretive Data 1. Blood cultures are incubated and monitored continuously for 5 days (120 hours). The first negative report is issued within 24 hours of receipt in the laboratory. 2. All positive cultures are resulted and called to physicians/care providers as soon as they are detected. 3. A rapid molecular test for organism identification may be performed using the [employer] Blood Culture Identification panel. This assay detects microbial DNA in a blood culture broth. This assay has been cleared by the [place] Food and Drug Administration and its performance characteristics have been verified by the [facility]. Interpretive data was last revised on December 07, 2022. Eula Lopez [facility] LAB MICROBIOLOGY - GENERA L ORDERABLES Final Result [facility] [address] [facility]. [facility] [place] [address] * (ABNORMAL) Erythrocyte sedimentation rate (09/02/2024 11:13 AM CDT) Erythrocyte sedimentation rate 39(H) 1 - 20 mm/hr Blood 09/02/2024 11:1 3 AM CDT 09/02/2024 11:20 AM CDT Eula Lopez [facility] LAB BLOOD ORDERABLES Fide l Result [facility] [address] [facility]. [facility] [place] [address] * CRP (acute phase) (09/02/2024 11:13 AM CDT) CRP 6.7 <=10.0 mg/L Blood 09/02/2024 11:1 3 AM CDT 09/02/2024 11:20 AM CDT us Eula Lopez [facility] LAB BLOOD ORDERABLES Fide l Result [facility] [address] [facility]. Department [place] [address] * XR Foot Right 3 or More [...] Echavarria MD LAB BLOOD ORDERABLES Final Result [facility] Department [place] [address] * (ABNORMAL) Lipid panel (10/23/2023 11:02 PM SCIENTIFIC WRITER) Cholesterol 162 30 - 199 mg/dL [facility] Comment: Interpretive Data Ages < or [...] on 2018. Triglycerides 134 <=149 mg/dL [facility] Comment: Interpretive Data Ages < or [...] revised on 2018. HDL 34(L) >=40 mg/dL [facility] Comment: Interpretive Data Ages < or [...] on 2018. LDL, calculated 101 <=129 mg/dL [facility] Comment: Interpretive Data Ages < or [...] revised on 2018. Non-HDL Cholesterol 128 mg/dL [facility] Comment: Interpretive Data Ages < or [...] last revised on 2018. Chol/HDL ratio 5 [facility] Blood 10/23/2023 11:0 2 PM SCIENTIFIC WRITER 10/23/2023 11:14 PM SCIENTIFIC WRITER Narrative [facility] - 10/24/2023 11:06 AM SCIENTIFIC WRITER This lipid panel was automatically ordered due to a significant change in Troponin. The dietary status of the patient at the collection time should be correlated with the lipid results. us Marcial Vu Jr., MD LAB BLOOD ORDERABLE S Final Result [facility] Department [place] [address] * POCT hemoglobin A1c (10/11/2023 11:43 AM SCIENTIFIC WRITER) Hgb A1C, POC 5.5 4.0 - 5.6 % [facility] Est Average Gluc POC 111 mg/dL [facility] Comment: The ADA recommends reporting an estimated Average Glucose (eAG) with all Hemoglobin A1c results using the equation derived from a study of 507 normal and diabetic adults. ??Minority populations were underrepresented and children were not included. ?? (Diabetes Care 31:0938-0721, 2008). ??The eAG is not equivalent to a fasting glucose. Blood 10/11/2023 11:4 3 AM SCIENTIFIC WRITER 10/11/2023 11:43 AM SCIENTIFIC WRITER Marcial Vu Jr., MD POINT OF CARE TEST ORDERABLES Final Result [facility] Department [place] [address] from Last 3 Months or Most Recently Relevant to Health Maintenance Insurance MEDICARE [employer]IONS MEDICARE [facility] MEDICARE SOLUTIONS MEDICARE SOLUTIONS Advance Directives For more information, please contact: [phone] Documents on File Type Date Recorded Patient Reed Fixer Expl anation ADVANCE DIRECTIVE 03/05/2024 7:22 PM POLST ADVANCE DIRECTIVE 10/17/2021 10:30 AM Val Evans ADVANCE DIRECTIVE 09/30/2019 11:55 AM Pow er of Wireless Operator-Medical ADVANCE DIRECTIVE 09/30/2019 11:54 AM Pow er of Wireless Operator-Medical * Full Code (Latest Code Status [...] First Alternate Health Care Agent Care Teams Binder And Wrapper Packer Relationship Specialty Start Date End Date No, Physician PCP - General 05/26/24
--- OUTSIDE RECORDS SUMMARY | 2024-11-05 22:54 | XMS_ITS | Encounter Summary ---
Author Organization [facility] Healthcare Address [address] [place] [address] Care Team Providers Care Elevator Serviceman Name Role Phone No, Physician Primary Care Provider [phone] Encounter Details Date Type Department Care Team (Late st Contact Info) Description 09/24/2024 Telephone [facility] Imaging [address] [place] [address] Leticia Donahue RN Social History Tobacco Use Types Packs/Day Years Used Date Smoking Tobacco: Former Cigarettes 1 11 969 - 1979 Passive Smoke Exposure: Never Smokeless Tobacco: Never Alcohol Use Standard Drinks/Week Comments Yes 14 (1 standard drink = 0.6 oz pu re alcohol) social C Utilities Answer Date Recorded In the past 12 months has [employer], gas, oil, or water [employer] threatened to shut off services in your [...] often do you attend chur ch or baptist services? 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 ECTOR SALVAGE documented in this encounter Plan of Treatment Not on file documented as of this encounter Visit Diagnoses Not on filedocumented in this encounter Care Teams Elevator Serviceman Relationship Specialty Start Date End Date No, Physician PCP - General 05/26/24 documented as of this encounter
--- OUTSIDE RECORDS SUMMARY | 2024-11-05 22:54 | XMS_ITS | Encounter Summary ---
Author Organization [facility] Address [address] [place] [address] Phone Care Team Providers Care Transformer Inspector Name Role Phone No, Physician Primary Care Provider [phone] Encounter Details Date Type Department Care Team (Latest Contact Info) Description 08/25/2024 3:30 PM CDT Telemedicine [facility] Hematology [address] [place] [id number] Katharine Hampton MD [address] [place] [address] Anticoagulant long-term use (Primary Dx); [...] Recorded In the past 12 months has [employer], gas, oil, or water [employer] threatened to shut off services in your [...] on file 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 The patient visit started at 407 p[address] [...] this service replaces anoffice visit. PATIENT NAME: Hiar Evans : 1950 DATE OF SERVICE: 08/25/2024 [...] multivitamin tablet, Take 1 tablet by mouth surgical instrument maker before breakfast, Disp: , Rfl: ondansetron ODT [...] 1 tablet (20 mEq total) by mouth surgical instrument maker before breakfast, Disp: , Rfl: senna-docusate (PERICOLACE) 8.6-50 mg, Take 1 tablet by mouth nightly (Patient taking differently: Take 1 tablet by mouth surgical instrument maker before breakfast), Disp: , Rfl: tamsulosin (FLOMAX) [...] 024 documented in this encounter Care Teams Transformer Inspector Relationship Specialty Start Date End Date No, Physician PCP - General 05/26/24 documented as of this encounter
--- OUTSIDE RECORDS SUMMARY | 2024-11-05 22:54 | XMS_ITS | Encounter Summary ---
Author Organization [facility] Address [address] [place] [address] Phone Care Team Providers Care Thread Winder Automatic Name Role Phone No, Physician Primary Care Provider [phone] Reason for Visit * Diagnostic Imaging (Routine) - Closed Specialty Diagnoses / Procedures Referred By Manisha gale Referred To Contact Diagnoses Bilateral lower extremity edema Procedures US Venous Reflux Bilateral Corina Crum MD [address] [facility] [address] [place] [address] Phone: tel: fax: [address] [address] Referral ID Status Reason Start Date Expiration Date Visits Re quested Visits Authorized [id number] Closed 09/15/2024 10/15/2025 1 1 Encounter Details Date Type Department Care Team (Latest Contact Info) Description 09/29/2024 1:00 PM SAFETY ENGINEER PRESSURE VESSELS Ancillary Procedure [facility] [address] [facility] 8[address] [place] [address] [place] [address] Bilateral lower extremity edema Social History Tobacco Use Types Packs/Day Years Used Date Smoking Tobacco: Former Cigarettes 1 11 1 969 - 1979 Passive Smoke Exposure: Never Smokeless Tobacco: Never Alcohol Use Standard Drinks/Week Comments Yes 14 (1 standard drink = 0.6 oz pu re alcohol) social C Utilities Answer Date Recorded In the past 12 months has [employer] gas, oil, or water [employer] threatened to shut off services in your [...] on file Legal Sex Male 9:07 PM SAFETY ENGINEER PRESSURE VESSELS Gender Identity Not on file Sexual Orientation Not on file 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 Not on file Not on file documented as of this encounter Plan of Treatment Not on file documented as of this encounter Procedures Procedure Name Priority Date/Time Associated Diagnosis Comments US VENOUS REFLUX BILATERAL Schedule Routine, Read Routine (OP Routine) 09/29/2024 3:27 PM SAFETY ENGINEER PRESSURE VESSELS Bilateral lower extremity edema documented in this encounter Results * US Venous Reflux Bilateral (09/29/2024 3:27 PM SAFETY ENGINEER PRESSURE VESSELS) Anatomical Region Laterality Modality Vascular Bilateral Ultrasound 09/29/2024 2:23 PM SAFETY ENGINEER PRESSURE VESSELS Narrative 09/29/2024 7:08 PM SAFETY ENGINEER PRESSURE VESSELS [facility] - Department of Vascular Surgery, Vascular Laboratory [address] [place] [address] Lower Extremity Venous Reflux Duplex Report Patient Name: HIRA EVANS WILLIAM : 1950 (74y 3m) Study Date: 09/29/2024 2:23:50 PM Gender: M Tech: AC Location: [facility] Ref Provider: CORINA CRUM Quality: Adequate Order [...] Leg ? Left Leg - FINDINGS: Performing Land Resource Specialist: Josiane Chance RVT. Patient positioning: Reflux testing [...] Scott Martinez MD FACS 09/29/2024 7:07:50 PM SAFETY ENGINEER PRESSURE VESSELS Procedure Note Scott Mratinez MD - 09/29/2024 [facility] - Department of Vascular Surgery,Vascular Laboratory [address] [place] [address] Lower Extremity Venous Reflux Duplex Report Patient Name: HIRA EVANS WILLIAM : 1950 (74y 3m) Study Date: 09/29/2024 2:23:50 PM Gender: M Tech: Location: [facility] Provider: CORNIA CRUM Quality: Adequate Order Provider: CORINA CRUM [...] Units Right LegLeft Leg - FINDINGS: Performing Land Resource Specialist: Josiane Chance RVT. Patient positioning: Reflux testing [...] above. Electronically Signed By: Scott Martinez MD [facility] 09/29/2024 7:07:50 PM SAFETY ENGINEER PRESSURE VESSELS us Corina Crum MD IMG US PROCEDURES Final Re sult documented in this encounter Visit Diagnoses Diagnosis Bilateral lower extremity edema documented in this encounter Care Teams Thread Winder Automatic Relationship Specialty Start Date End Date No, Physician PCP - General 05/26/24 documented as of this encounter
--- OUTSIDE RECORDS SUMMARY | 2024-11-05 22:54 | XMS_ITS | Encounter Summary ---
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, initial encounter (HCC) Procedures Dexa Axial Skeleton Bone Density 1 or 2 Site Joleen Cantor MD [address] [place] [address] Phone: tel: fax: [address] [address] Referral ID Status Reason Start Date Expiration Date V isits Requested Visits Authorized [id number] Authorized 10/22/2024 11/21/2025 1 1 WELD OPERATOR Reason for Visit * Consultation (Routine) - Closed Specialty Diagnoses / Procedures Referred By Contact Referred To Contact Physical Medicine and Rehabilitation Diagnoses S/P laminectomy with spinal fusion Injury of thoracic spinal cord, subsequent encounter (HCC) Marcial Vu Jr., MD [address] [place] [address] Phone: tel:[phone] fax:[phone] [facility] (All Locations) Referral ID Status Reason Start Date Expiration Date V isits Requested Visits Authorized [id number] Closed Specialty Services Required 06/26/2024 07/26/2025 1 1 Encounter Details Date Type Department Care Team (Late st Contact Info) Description 10/22/2024 9:00 AM SHOTWELD OPERATOR Office Visit [facility] Orthopaedic Surgery [address] [facility] 12th [place] [address] [place] [address] Joleen Cantor MD [address] [facility] [address] [place] [address] Paraplegia (HCC) (Primary Dx); S/P laminectomy with [...] In the past 12 months has e [employer], gas, oil, or water [employer] threatened to shut off services in your [...] often do you attend chur ch or rastafari services? 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 Not on file Not on file documented as of this encounter Last Filed Vital Signs Vital Sign Reading Time Taken Comments Blood Pressure 126/80 10/22/2024 8:54 AM SHOTWELD OPERATOR Pulse 67 10/22/2024 8:54 AM SHOTWELD OPERATOR Temperature - - Respiratory Rate - - Oxygen Saturation - - Inhaled Oxygen Concentration - - Weight 90.7 kg (200 lb) 10/22/2024 8:54 AM SHOTWELD OPERATOR Height - - Body Mass Index 30.41 09/23/2024 11:35 AM SHOTWELD OPERATOR documented in this encounter Progress Notes * Joleen Cantor MD - 10/22/2024 9:00 AM CST Patient Name: HIRA EVANS Medical Record Number (MRN): [id number] Date of (): 1950 Encounter Date: 10/22/2024 [...] is residing at assisted living facility in [place]. He reports no spasticity in bilateral lower [...] multivitamin tablet Take 1 tablet by mouth health tech before breakfast ondansetron ODT (ZOFRAN-ODT) 4 mg [...] 1 tablet (20 mEq total) by mouth health tech before breakfast senna-docusate (PERICOLACE) 8.6-50 mg Take 1 tablet by mouth nightly (Patient taking differently: Take 1 tablet by mouth health tech before breakfast) tamsulosin (FLOMAX) 0.4 mg extended [...] Injury of thoracic spinal cord, subsequent encounter ([facility]) Ambulatory referral to Physical Medicine Rehab Dexa Axial Skeleton Bone Density 1 or 2 Site 4. 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 Paraplegia ([facility]) 6. Neurogenic bladder 7. Neurogenic bowel 8. [...] He continue on vitamin D3 2000 units [id number] supplement. Last vitamin-D level 50 ng/ml in [...] Return in about 29 weeks (around 05/13/2025). WELD OPERATOR documented in this encounter Plan of [...] 12/23/2023 documented in this encounter Care Teams Vaccine Manager Relationship Specialty Start Date End Date No, Physician PCP - General 05/26/24 documented as of this encounter
--- OUTSIDE RECORDS SUMMARY | 2024-11-05 22:54 | XMS_ITS | Encounter Summary ---
Author Organization [facility] Healthcare Address [address] [place] [address] Care Team Providers Care Medical Care Evaluation Specialist Name Role Phone No, Physician Primary Care Provider [phone] Encounter Details Date Type Department Care Team (Late st Contact Info) Description 09/05/2024 Orders Only [facility] Radiology 1 [place] [address] Meryl Longoria RN Social History Tobacco Use Types Packs/Day Years Used Date Smoking Tobacco: Former Cigarettes 1 11 969 1979 Passive Smoke Exposure: Never Smokeless Tobacco: Never Alcohol Use Standard Drinks/Week Comments Yes 14 (1 standard drink = 0.6 oz pu re alcohol) social C Utilities Answer Date Recorded In the past 12 months has [employer], gas, oil, or water [employer] 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
--- OUTSIDE RECORDS SUMMARY | 2024-11-05 22:54 | XMS_ITS | Encounter Summary ---
Author Organization [facility] Healthcare Address [address] [place] [address] Care Team Providers Care Train Driver Name Role Phone No, Physician Primary Care Provider [phone] Encounter Details Date Type Department Care Team (Late st Contact Info) Description 09/01/2024 Orders Only [facility] Radiology 1 [place] [address] Meryl Longoria RN Social History Tobacco Use Types Packs/Day Years Used Date Smoking Tobacco: Former Cigarettes 1 11 969 1979 Passive Smoke Exposure: Never Smokeless Tobacco: Never Alcohol Use Standard Drinks/Week Comments Yes 14 (1 standard drink = 0.6 oz pu re alcohol) social C Utilities Answer Date Recorded In the past 12 months has [employer], gas, oil, or water [employer] threatened to shut off services in your [...] any clubs o r organizations such as buddhism groups, unions, fraternal or athletic groups, or [...] file 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
--- OUTSIDE RECORDS SUMMARY | 2024-11-05 22:54 | XMS_ITS | Encounter Summary ---
Author Organization [facility] Address [address] [facility] [address] [place] [address] Phone Care Team Providers Care Plant Manager Name Role Phone No, Physician Primary Care Provider [phone] Encounter Details Date Type Department Care Team (Late st Contact Info) Description 08/25/2024 Orders Only [facility] Surgery [address] [place] [address] Temo Mcintosh MD [address] [facility] [place] [address] Hydronephrosis with urinary obstruction due to renal calculus (Primary Dx) Social History Tobacco Use Types Packs/Day Years Used Date Smoking Tobacco: Former Cigarettes 1 11 969 - 1979 Passive Smoke Exposure: Never Smokeless Tobacco: Never Alcohol Use Standard Drinks/Week Comments Yes 14 (1 standard drink = 0.6 oz pu re alcohol) social C Utilities Answer Date Recorded In the past 12 months has [employer], gas, oil, or water [employer] threatened to shut off services in your [...] week 12/27/2023 How often do you attend [facility] or buddhism services? 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
--- OUTSIDE RECORDS SUMMARY | 2024-11-05 22:54 | XMS_ITS | Encounter Summary ---
Author Organization [facility] Address [address] [place] [address] Phone Care Team Providers Care Hedge Fund Manager Name Role Phone No, Physician Primary Care Provider [phone] Encounter Details Date Type Department Care Team (Late st Contact Info) Description 09/15/2024 10:00 AM COTTON AGENT Office Visit [facility] Radiology, Interventional Radiology [address] [facility] [address] [place] [address] Milan Crum MD [address] [place], [place] [id number] Bilateral lower extremity edema (Primary Dx) Social History Tobacco Use Types Packs/Day Years Used Date Smoking Tobacco: Former Cigarettes 1 09 05 969 - 1979 Passive Smoke Exposure: Never Smokeless Tobacco: Never Alcohol Use Standard Drinks/Week Comments Yes 14 (1 standard drink = 0.6 oz pu re alcohol) social [facility] Utilities Answer Date Recorded In the past 12 months has [employer], gas, oil, or water [employer] threatened to shut off services in your [...] you attend [facility] or muslim services? 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 There is some improvement of uhnbt-jsb-zlfl edema with leg elevation. There is no [...] Milan Crum MD at 09/15/2024 2:42 PM COTTON AGENT ON AGENT ON AGENT Associated attestation - Milan Crum MD - 09/15/2024 2:42 PM COTTON AGENT I have seen and examined the patient on 09/15/24. I agree with the findings and plan of care as documented in the resident's/fellow's note.. Milan Crum MD belt maker helper and Surgery Vascular and Interventional Radiology Section [facility] Rad[facility] in [place] documented in this encounter Plan of Treatment Not on file documented as of this encounter Visit Diagnoses Diagnosis Bilateral lower extremity edema- Primary documented in this encounter Care Teams Hedge Fund Manager Relationship Specialty Start Date End Date No, Physician PCP - General 05/26/24 documented as of this encounter
--- OUTSIDE RECORDS SUMMARY | 2024-11-05 22:54 | XMS_ITS | Encounter Summary ---
Author Organization [facility] Address [address] [place] [address] Phone Care Team Providers Care Underground Electrician Name Role Phone No, Physician Primary Care Provider [phone] Encounter Details Date Type Department Care Team (Late st Contact Info) Description 09/01/2024 Telephone [facility] Infectious Diseases [address] [place] [address] [address] [place] [address] Caitlin Hussein BS Social History Tobacco Use Types Packs/Day Years Used Date Smoking Tobacco: Former Cigarettes 1 09 05 969 - 1979 Passive Smoke Exposure: Never Smokeless Tobacco: Never Alcohol Use Standard Drinks/Week Comments Yes 14 (1 standard drink = 0.6 oz pu re alcohol) social [facility] Utilities Answer Date Recorded In the past 12 months has [employer], gas, oil, or water [employer] threatened to shut off services in your [...] on file 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
--- OUTSIDE RECORDS SUMMARY | 2024-11-05 22:54 | XMS_ITS | Encounter Summary ---
Author Organization [facility] Healthcare Address [address] [place] [address] Care Team Providers Care Air Intelligence Specialist Name Role Phone No, Physician Primary Care Provider [phone] Encounter Details Date Type Department Care Team (Late st Contact Info) Description 09/08/2024 Telephone [facility] Radiology 1 [place] [address] Viry Stroud RN Social History Tobacco Use Types Packs/Day Years Used Date Smoking Tobacco: Former Cigarettes 1 11 969 1979 Passive Smoke Exposure: Never Smokeless Tobacco: Never Alcohol Use Standard Drinks/Week Comments Yes 14 (1 standard drink = 0.6 oz pu re alcohol) social [facility] Utilities Answer Date Recorded In the past 12 months has [employer], gas, oil, or water [employer] threatened to shut off services in your [...] on file 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 Hampton faxed to facility per request. H CRYSTAL MOLDER documented in this encounter Plan of Treatment Not on file documented as of this encounter Visit Diagnoses Not on filedocumented in this encounter Care Teams Air Intelligence Specialist Relationship Specialty Start Date End Date No, Physician PCP - General 05/26/24 documented as of this encounter
--- OUTSIDE RECORDS SUMMARY | 2024-11-05 22:55 | XMS_ITS | Encounter Summary ---
Author Organization [facility] Healthcare Address [address] [place] [address] Care Team Providers Care Rice Drier Name Role Phone No, Physician Primary Care Provider [phone] Reason for Referral * Diagnostic Imaging (Routine) - Closed Specialty Diagnoses / Procedures Referred By Contac t Referred To Contact Radiology Diagnoses Swelling of both lower extremities Procedures IR Venogram Lower Extremity Bilateral Milan Crum MD [address] [address] Phone: tel: fax: [address] [address] Referral ID Status Reason Start Date Expiration Date Visits Re quested Visits Authorized [id number] Closed 07/16/2024 08/15/2025 1 1 Reason for Visit * Diagnostic Imaging (Routine) - Closed Specialty Diagnoses / Procedures Referred By Contac t Referred To Contact Radiology Diagnoses Swelling of both lower extremities Procedures IR Venogram Lower Extremity Bilateral Milan Crum MD [address] [place] [address] Phone: tel: fax: [address] [address] Referral ID Status Reason Start Date Expiration Date Visits Re quested Visits Authorized [id number] Closed 07/16/2024 08/15/2025 1 1 Encounter Details Date Type Department Care Team (Late st Contact Info) Description 08/04/2024 9:48 AM CDT - 08/04/2024 11:59 PM CDT Hospital Encounter [facility] Radiology [address] [facility] [place] [address] Milan Crum MD [address] [facility] [address] [place] [address] Jose Roche CRNA [address] [place] [address] Leda Dsouza MD [address] [place] [address] Swelling of both lower extremities Discharge Disposition: [...] Recorded In the past 12 months has [employer], gas, oil, or water [employer] threatened to shut off services in your [...] No 12/27/2023 Housing Stability Vital Sign Answer Shlaom e Recorded In the last 12 months, [...] on file 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 At all other times call [phone] and ask that the Interventional Radiologist be paged. To contact an Interventional Radiologist at [facility] call [phone] Sunday through Sunday from 7:30am-3:30pm. Special instructions: Please call Interventional Radiology for any procedure related questions or problems including: Extreme swelling or bruising at the site. Unusual drainage or bleeding from procedure site. Fever of 101.5 F for more than 24 hours. Severe procedure related pain. Follow up care: [] Return to Interventional Radiology on at Please come to: [] 3rd Floor [facility] [] 4th floor [facility] [] [facility] [] [facility] Please call [phone] to schedule a follow up appointment. You need to return in * Attachments The following attachments cannot be sent through Care Everywhere. * [facility] PATHWAY TO EXCELLENT CARE AFTER SURGERY documented [...] ound healing Take 1 tablet by mouth leach runner before breakfast ondansetron ODT (ZOFRAN-ODT) 4 mg [...] 1 tablet (20 mEq total) by mouth leach runner before breakfast 4 senna-docusate (PERICOLACE) 8.6-50 mg [...] multivitamin tablet, Take 1 tablet by mouth leach runner before breakfast, Disp: , Rfl: ondansetron ODT [...] 1 tablet (20 mEq total) by mouth leach runner before breakfast, Disp: , Rfl: senna-docusate (PERICOLACE) 8.6-50 mg, Take 1 tablet by mouth nightly (Patient taking differently: Take 1 tablet by mouth leach runner before breakfast), Disp: , Rfl: tamsulosin (FLOMAX) [...] been discussed with the patient and/or their registered representative. All questions answered and they agree [...] was obtained. Prior to beginning the procedure, Oxford Protocol was performed to confirm the patient's identity and the planned procedure. ??Fluoroscopy time has been recorded in the electronic medical record. The right internal jugular vein was accessed using a micropuncture needle under real-time ultrasound guidance after an image of the patent vein was recorded. A 9 Iraqi 11 cm sheath was placed. Under fluoroscopic guidance, vert catheter was advanced into the left external iliac vein. The right common femoral vein was accessed using a micropuncture needle under real-time continuous ultrasound monitoring. An image of the patent axis vein was recorded. An 9 Iraqi 11 cm sheath was placed. Multiple digital [...] was obtained. Prior to beginning the procedure, Oxford Protocol was performed to confirm the patient's identity and the planned procedure. Fluoroscopy time has been recorded in the electronic medical record. The right internal jugular vein was accessed using a micropuncture needle under real-time ultrasound guidance after an image of the patent vein was recorded. A 9 Iraqi 11 cm sheath was placed. Under fluoroscopic guidance, vert catheter was advanced into the left external iliac vein. The right common femoral vein was accessed using a micropuncture needle under real-time continuous ultrasound monitoring. An image of the patent axis vein was recorded. An 9 Iraqi 11 cm sheath was placed. Multiple digital [...] GILBERT CE Final Result LAURA [facility] [place] [address] documented in this encounter Visit Diagnoses Diagnosis [...] 08/04/2024 documented in this encounter Care Teams Rice Drier Relationship Specialty Start Date End Date No, Physician PCP - General 05/26/24 documented as of this encounter
--- OUTSIDE RECORDS SUMMARY | 2024-11-05 22:55 | XMS_ITS | Encounter Summary ---
Author Organization [facility] Address [address] [place] [address] Phone Care Team Providers Care Infection Control Nurse Name Role Phone No, Physician Primary Care Provider [phone] Encounter Details Date Type Department Care Team (Late st Contact Info) Description 08/21/2024 Telephone [facility] Surgery [address] [place] [address] Des Gay BS Social History Tobacco Use Types Packs/Day Years Used Date Smoking Tobacco: Former Cigarettes 1 09 05 969 - 1979 Passive Smoke Exposure: Never Smokeless Tobacco: Never Alcohol Use Standard Drinks/Week Comments Yes 14 (1 standard drink = 0.6 oz pu re alcohol) social [facility] Utilities Answer Date Recorded In the past 12 months has [employer], gas, oil, or water [employer] threatened to shut off services in [...] any clubs o r organizations such as moravian groups, unions, fraternal or athletic groups, or [...] on file 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
--- OUTSIDE RECORDS SUMMARY | 2024-11-05 22:55 | XMS_ITS | Encounter Summary ---
Author Organization [facility] Address [address] [place] [address] Phone Care Team Providers Care Private Mortgage Banker Safe Name Role Phone No, Physician Primary Care Provider Encounter Details Date Type Department Care Team (Late st Contact Info) Description 07/14/2024 9:30 AM CDT Office Visit [facility], Interventional Radiology [address] [place] [id number] Milan Crum MD [address] [place] [address] Bilateral lower extremity edema (Primary Dx) Social History Tobacco Use Types Packs/Day Years Used Date Smoking Tobacco: Former Cigarettes 1 11 969 - 1979 Passive Smoke Exposure: Never Smokeless Tobacco: Never Alcohol Use Standard Drinks/Week Comments Yes 14 (1 standard drink = 0.6 oz pu re alcohol) social [facility] Utilities Answer Date Recorded In the past 12 months has [employer], gas, oil, or water [employer] threatened to shut off services in your [...] week 12/27/2023 How often do you attend [facility] or gnosticist services? 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 Milan Crum MD salary manager and Surgery Vascular and Interventional Radiology Section [facility] of Radiology [facility] [place] documented in this encounter Plan of Treatment Not on file documented as of this encounter Visit Diagnoses Diagnosis Bilateral lower extremity edema- Primary documented in this encounter Care Teams Private Mortgage Banker Safe Relationship Specialty Start Date End Date No, Physician PCP - General 05/26/24 documented as of this encounter
--- OUTSIDE RECORDS SUMMARY | 2024-11-05 22:55 | XMS_ITS | Encounter Summary ---
Author Organization [facility] Healthcare Address [address] [place] [address] Care Team Providers Care Asbestos Shingle Roofer Name Role Phone No, Physician Primary Care Provider [phone] Reason for Visit * Reason Onset Date Comments Appointment 06/20/2024 Encounter Details Date Type Department Care Team (Late st Contact Info) Description 06/20/[address] [place] [id number] Macy Fernando, RN Appointment Social History Tobacco Use Types Packs/Day Years Used Date Smoking Tobacco: Former Cigarettes 1 11 9 1979 Passive Smoke Exposure: Never Smokeless Tobacco: Never Alcohol Use Standard Drinks/Week Comments Yes 14 (1 standard drink = 0.6 oz pu re alcohol) social [facility] Utilities Answer Date Recorded In the past 12 months has [employer], gas, oil, or water [employer] threatened to shut off services in your [...] often do you attend chur ch or yazdanism services? 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 07/14 with PK pt is [...] on filedocumented in this encounter Care Teams Asbestos Shingle Roofer Relationship Specialty Start Date End Date No, Physician PCP - General 05/26/24 documented as of this encounter
--- OUTSIDE RECORDS SUMMARY | 2024-11-05 22:55 | XMS_ITS | Encounter Summary ---
Author Organization [facility] Address [address] [place] [address] Phone Care Team Providers Care Vehicle Upholsterer Name Role Phone No, Physician Primary Care Provider [phone] Reason for Visit * Reason Onset Date Comments Appointment 07/15/2024 Encounter Details Date Type Department Care Team (Late st Contact Info) Description 07/15/2024 Telephone [facility] Orthopaedic Surgery [address] [address] 6th [place] [address] [place] [id number] Marcial Vu Jr., MD [address] [facility] [address] [place] [address] Appointment Social History Tobacco Use Types Packs/Day Years Used Date Smoking Tobacco: Former Cigarettes 1 09 05 969 - 1979 Passive Smoke Exposure: Never Smokeless Tobacco: Never Alcohol Use Standard Drinks/Week Comments Yes 14 (1 standard drink = 0.6 oz pu re alcohol) social [facility] Utilities Answer Date Recorded In the past 12 months has [employer], gas, oil, or water [employer] threatened to shut off services in [...] often do you attend chur ch or zoroastrian services? 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 Left for Glenna, emergency department coordinator with neurorehab, requesting an update on the [...] on filedocumented in this encounter Care Teams Vehicle Upholsterer Relationship Specialty Start Date End Date No, Physician PCP - General 05/26/24 documented as of this encounter
--- OUTSIDE RECORDS SUMMARY | 2024-11-05 22:55 | XMS_ITS | Encounter Summary ---
Author Organization [facility] Healthcare Address [address] [place] [address] Care Team Providers Care Bread Wrapper Name Role Phone No, Physician Primary Care Provider [phone] Encounter Details Date Type Department Care Team (Late st Contact Info) Description 06/19/2024 8:15 AM CDT Lab [facility] Advanced Medicine [facility] Advanced Medicine [facility] [address] [place] [phone] Presence of IVC filter Social History Tobacco Use Types Packs/Day Years Used Date Smoking Tobacco: Former Cigarettes 1 11 1 969 - 1979 Passive Smoke Exposure: Never Smokeless Tobacco: Never Alcohol Use Standard Drinks/Week Comments Yes 14 (1 standard drink = 0.6 oz pu re alcohol) social C Utilities Answer Date Recorded In the past 12 months has [employer], gas, oil, or water company threatened to [...] any clubs o r organizations such as sikh groups, unions, fraternal or athletic groups, or [...] on file 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 Gender Identity Not on file Sexual Orientation Not on file 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 Eosinophil abs 0.6(H) 0.0 - 0.5 K/cumm [facility] Basophil abs 0.0 0.0 - 0.1 K/cumm [facility] Neutrophil pct 52.1 % [facility] Comment: Interpretive Data Percent cell count reference ranges are not reported, since discordance with absolute values may lead to misinterpretation of CBC data. Current Interpretive Data was last revised on 2018. Imm gran pct 0.3 % [facility] Comment: Interpretive Data Percent cell count reference ranges are not reported, since discordance with absolute values may lead to misinterpretation of CBC data. Current Interpretive Data was last revised on 2018. Lymphocyte pct 29.0 % [facility] Comment: Interpretive Data Percent cell count reference ranges are not reported, since discordance with absolute values may lead to misinterpretation of CBC data. Current Interpretive Data was last revised on 2018. Monocyte pct 8.2 % [facility] Comment: Interpretive Data Percent cell count reference ranges are not reported, since discordance with absolute values may lead to misinterpretation of CBC data. Current Interpretive Data was last revised on 2018. Eosinophil pct 9.7 % [facility] Comment: Interpretive Data Percent cell count reference ranges are not reported, since discordance with absolute values may lead to misinterpretation of CBC data. Current Interpretive Data was last revised on 2018. Basophil pct 0.7 % [facility] Comment: Interpretive Data Percent cell count reference ranges are not reported, since discordance with absolute values may lead to misinterpretation of CBC data. Current Interpretive Data was last revised on 2018. Blood 06/19/2024 8:07 AM CDT 06/19/2024 8:36 AM CDT us Milan Crum MD LAB BLOOD ORDERABLES Final Result [facility] Department [place] [address] * (ABNORMAL) CBC with auto differential (06/19/2024 8:07 AM CDT) WBC 5.8 3.8 - 9.9 K/cumm Hgb 11.3(L) 13.0 - 17.5 g/dL [facility] Hct 34.4(L) 38.9 - 50.3 % [facility] Plt 198 150 - 400 K/cumm [facility] MPV 11.0 9.1 - 12.3 fL [facility] RBC 3.50(L) 4.30 - 5.80 M/cumm [facility] MCV 98.3(H) 81.3 - 96.4 fL [facility] MCH 32.3 27.1 - 33.3 pg [facility] MCHC 32.8 32.3 - 35.7 g/dL [facility] RDW CV 14.8 11.1 - 14.9 % [facility] RDW SD 53.8(H) 35.7 - 48.1 fL [facility] NRBC abs 0.00 0.00 - 0.01 K/cumm [facility] Blood 06/19/2024 8:07 AM CDT 06/19/2024 8:36 AM CDT us Milan Crum MD LAB BLOOD ORDERABLES Final Result [facility] Department [place] [address] * (ABNORMAL) Comprehensive metabolic panel (06/19/2024 8:07 AM CDT) Sodium 143 135 - 145 mmol/L Potassium, pl 3.9 3.3 - 4.9 mmol/L [facility] Chloride 105 97 - 110 mmol/L [facility] CO2 32 22 - 32 mmol/L [facility] Anion gap 6 2 - 15 mmol/L [facility] BUN 18 6 - 25 mg/dL [facility] Creatinine 0.72(L) 0.80 - 1.30 mg/dL [facility] Glucose 103 70 - 199 mg/dL [facility] Comment: Interpretive Data Fasting glucose >/= [...] Calcium 9.7 8.5 - 10.3 mg/dL [facility] Bilirubin, total 0.7 0.1 - 1.2 mg/dL [facility] Protein, pl 7.8 6.5 - 8.5 g/dL [facility] Albumin 3.9 3.5 - 5.0 g/dL [facility] Alk phos 96 40 - 130 Units/L [facility] ALT 16 7 - 55 Units/L [facility] AST 26 10 - 50 Units/L [facility] Blood 06/19/2024 8:07 AM CDT 06/19/2024 8:36 AM CDT Milan Crum MD LAB BLOOD ORDERABLES Final Result [facility] Department [place] [address] documented in this encounter Visit Diagnoses Diagnosis Presence of IVC filter documented in this encounter Care Teams Bread Wrapper Relationship Specialty Start Date End Date No, Physician PCP - General 05/26/24 documented as of this encounter
--- OUTSIDE RECORDS SUMMARY | 2024-11-05 22:55 | XMS_ITS | Encounter Summary ---
Author Organization [facility] Healthcare Address [address] [place] [address] Care Team Providers Care Back Shoe Cutter Name Role Phone No, Physician Primary Care Provider [phone] Encounter Details Date Type Department Care Team (Late st Contact Info) Description 07/16/2024 Orders Only [facility] Radiology [address] [place] [address] Viry Stroud RN Social History Tobacco Use Types Packs/Day Years Used Date Smoking Tobacco: Former Cigarettes 1 11 969 1979 Passive Smoke Exposure: Never Smokeless Tobacco: Never Alcohol Use Standard Drinks/Week Comments Yes 14 (1 standard drink = 0.6 oz pu re alcohol) social [facility] Utilities Answer Date Recorded In the past 12 months has [employer], gas, oil, or water [employer] threatened to shut off services in your [...] often do you attend chur ch or church services? 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
--- OUTSIDE RECORDS SUMMARY | 2024-11-05 22:55 | XMS_ITS | Encounter Summary ---
Author Organization [facility] Healthcare Address [address] [place] [address] Care Team Providers Care Forestry Fire Aide Name Role Phone No, Physician Primary Care Provider [phone] Encounter Details Date Type Department Care Team (Late st Contact Info) Description 07/31/2024 Telephone [facility] Radiology [address] [place] [address] Apple Henry RN Social History Tobacco Use Types Packs/Day Years Used Date Smoking Tobacco: Former Cigarettes 1 11 969 1979 Passive Smoke Exposure: Never Smokeless Tobacco: Never Alcohol Use Standard Drinks/Week Comments Yes 14 (1 standard drink = 0.6 oz pu re alcohol) social [facility] Utilities Answer Date Recorded In the past 12 months has [employer], gas, oil, or water [employer] threatened to shut off services in your [...] file 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
--- OUTSIDE RECORDS SUMMARY | 2024-11-05 22:55 | XMS_ITS | Encounter Summary ---
Author Organization [facility] Address [address] [place] [address] Phone Care Team Providers Care Lamp Shade Assembler Name Role Phone No, Physician Primary Care Provider [phone] Encounter Details Date Type Department Care Team (Late st Contact Info) Description 07/25/2024 Telephone [facility] Orthopaedic Surgery [address] 12th [place] [address] [place] [address] Joleen Cantor MD [address] [facility] [address] [place] [address] Social History Tobacco Use Types Packs/Day Years Used Date Smoking Tobacco: Former Cigarettes 1 11 969 - 1979 Passive Smoke Exposure: Never Smokeless Tobacco: Never Alcohol Use Standard Drinks/Week Comments Yes 14 (1 standard drink = 0.6 oz pu re alcohol) social [facility] Utilities Answer Date Recorded In the past 12 months has [employer], gas, oil, or water [employer] threatened to shut off services in your [...] How often do you attend [facility] or jainism services? 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
--- OUTSIDE RECORDS SUMMARY | 2024-11-05 22:55 | XMS_ITS | Encounter Summary ---
Author Organization [facility] Address [address] [place] [address] Care Team Providers Care J2Ee Developer Name Role Phone No, Physician Primary Care Provider [phone] Encounter Details Date Type Department Care Team (Late st Contact Info) Description 08/04/2024 1:07 PM CDT Anesthesia Event [facility] Radiology 1 [facility] [place] [address] Leda Dsouza MD [address] [place] [address] Jorge Beal MD [address] [place] [address] Anesthesia Record Procedure Summary Procedure Name Responsible [...] by Octavio Haider RN 08/04/24 1651 by cOtavio Haider RN ETT Placement Date: 08/04/24; Placement [...] = 0.6 oz pu re alcohol) social [facility] Utilities Answer Date Recorded In the [...] chur ch or roman catholic services? 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 Patient anticipates going home later today No notable events documented. * Anesthesia Procedure Notes - Jose Roche CRNA - 08/04/2024 1:45 PM CDTAssociated Order(s): Airway Airway Urgency: elective Indications for airway management: anesthesia Difficult airway: no Staff: Supervising provider: Leda Dsouza MD Placed by: QUILL WINDER: Jose Roche CRNA Emergent airway documentation: Risks [...] Noted Nephrolithiasis 12/25/2023 DVT (deep venous thrombosis) ([facility]) ([facility]) 11/29/2023 Anemia 11/29/2023 Paraspinal hematoma 11/29/2023 Hyponatremia 11/29/2023 Elevated transaminase level 11/29/2023 Lower extremity edema 11/29/2023 Scrotal swelling 11/29/2023 Seizure ([facility]) 11/29/2023 Prediabetes 11/29/2023 Kidney stone 11/09/2023 Paralysis of both lower limbs ([facility]) ([facility]) 11/07/2023 Pulmonary embolism ([facility]) 10/26/2023 S/P spinal fusion 10/23/2023 Cardiac arrest ([facility]) 10/23/2023 Left perinephric collection, 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 10/15/2023 Ureteral colic 10/13/2023 UTI (urinary tract infection) 10/13/2023 Hydronephrosis with urinary obstruction due to renal calculus 10/12/2023 Lumbar radiculopathy 10/08/2023 Gross hematuria 10/18/2022 Bladder neck obstruction 10/17/2022 Lesion of urinary bladder 10/17/2022 Prostate cancer ([facility]) 10/17/2022 HTN (hypertension) 10/10/2021 Risk factors for obstructive sleep apnea 10/10/2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 Postoperative Plan: Postoperative administration opioids intended. No postoperative mechanical ventilation intended. Patient's planned disposition post procedure is Outpatient. Informed Consent: Discussed plan with QUILL WINDER. Anesthesia plan and risks discussed with patient. [...] Procedure Name Priority Date/Time Associated Diagnosis Comments OK AN PROCEDURE PLACEHOLDER Routine 08/04/2024 1:45 PM CDT OK AN ELECTIVE ENDOTRACHEAL AIRWAY Routine 08/04/2024 1:45 PM CDT documented in this encounter Results * OK AN ELECTIVE ENDOTRACHEAL AIRWAY, OK AN PROCEDURE PLACEHOLDER (08/04/2024 1:45 PM CDT) Narrative Jose Roche CRNA - 08/04/2024 1:45 PM CDT Jose Roche CRNA ? 08/04/2024 ??1:46 PM Airway Urgency: elective Indications for airway management: anesthesia Difficult airway: no Staff: Supervising provider: Leda Dsouza MD Placed by: QUILL WINDER: Jose Roche CRNA Emergent airway documentation: Risks [...] mg documented in this encounter Care Teams J2Ee Developer Relationship Specialty Start Date End Date No, Physician PCP - General 05/26/24 documented as of this encounter
--- OUTSIDE RECORDS SUMMARY | 2024-11-05 22:55 | XMS_ITS | Encounter Summary ---
Author Organization [facility] Address [address] [place] [address] Phone Care Team Providers Care Actuarial Mathematician Name Role Phone No, Physician Primary Care Provider [phone] Reason for Visit * Diagnostic Imaging (Routine) - Closed Specialty Diagnoses / Procedures Referred By Manisha t Referred To Contact Diagnoses Pain and swelling of left lower extremity Procedures US Vein Duplex Lower Extremity Bilateral Complete Corina Crum MD [address] [address] [place] [address] Phone: tel: fax: [address] [address] Referral ID Status Reason Start Date Expiration Date Visits Re quested Visits Authorized [id number] Closed 07/16/2024 08/15/2025 1 1 Encounter Details Date Type Department Care Team (Late st Contact Info) Description 08/01/2024 9:30 AM CDT Ancillary Procedure [facility] [place] [facility] [address] [place] [address] Advanced Medicine 8th [place] [address] [place] [address] Social History Tobacco Use Types Packs/Day Years Used Date Smoking Tobacco: Former Cigarettes 1 11 969 - 1979 Passive Smoke Exposure: Never Smokeless Tobacco: Never Alcohol Use Standard Drinks/Week Comments Yes 14 (1 standard drink = 0.6 oz pu re alcohol) social C Utilities Answer Date Recorded In the past 12 months has [employer], gas, oil, or water [employer] threatened to shut off services in your [...] attend chur ch or gnosticist services? 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 FINDINGS: Performing Sheet Rock Sander: Shasta Watson RVT. Bilateral: Venous Doppler signals [...] above. Electronically Signed By: Tyrone Castano MD [facility] [phone] 2024-08-01 09:45:45 CDT Procedure Note Tyrone Castano MD - 08/01/2024 [facility] - Department of Vascular Surgery,Vascular Laboratory [address] [place] [address] Lower Extremity Venous Ultrasound Report Patient Name: HIRA EVANS : 1950 (74y 1m) Study Date: 08/01/2024 9:01:27 AM Gender: M Tech: IA Location: [facility] Ref Provider: CORINA CRUM Quality: [...] M79.89 Other specified soft tissuedisorders. FINDINGS: Performing Sheet Rock Sander: Shasta Watson RVT. Bilateral: Venous Doppler signals [...] above. Electronically Signed By: Tyrone Castano MD [facility] [phone] 2024-08-01 09:45:45 CDT us Corina Crum MD IMG US PROCEDURES Final Re sult documented in this encounter Visit Diagnoses Not on filedocumented in this encounter Care Teams Actuarial Mathematician Relationship Specialty Start Date End Date No, Physician PCP - General 05/26/24 documented as of this encounter
--- OUTSIDE RECORDS SUMMARY | 2024-11-05 22:55 | XMS_ITS | Encounter Summary ---
Author Organization [facility] Healthcare Address [address] [place] [address] Care Team Providers Care Business Objects Report Developer Name Role Phone No, Physician Primary Care Provider [phone] Reason for Referral * MRI/CAT/PET Scan (Routine) - Closed Specialty Diagnoses / Procedures Referred By Contac t Referred To Contact Radiology Diagnoses Bilateral lower extremity edema Procedures CT Abdomen Pelvis W Contrast Milan Crum MD [address] [place] [address] Phone: tel: fax: [place] [address] [place] [address] Referral ID Status Reason Start Date Expiration Date Visits Re quested Visits Authorized [id number] Closed 06/20/2024 07/20/2025 1 1 Reason for Visit * MRI/CAT/PET Scan (Routine) - Closed Specialty Diagnoses / Procedures Referred By Contac t Referred To Contact Radiology Diagnoses Bilateral lower extremity edema Procedures CT Abdomen Pelvis W Contrast Milan Crum MD [address] [place] [address] Phone: tel: fax: [place] [address] [place] [address] Referral ID Status Reason Start Date Expiration Date Visits Re quested Visits Authorized [id number] Closed 06/20/2024 07/20/2025 1 1 Encounter Details Date Type Department Care Team (Latest Contact Info) Description 07/02/2024 2:50 PM CDT - 07/02/2024 11:59 PM CDT Hospital Encounter [facility] [address] [address] Bilateral lower extremity edema Discharge Disposition: Discharge [...] Recorded In the past 12 months has [employer], gas, oil, or water company threatened to [...] often do you attend chur ch or samaritan services? 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
--- OUTSIDE RECORDS SUMMARY | 2024-11-05 22:55 | XMS_ITS | Encounter Summary ---
Author Organization [facility] Address [address] [place] [address] Phone Care Team Providers Care Revenue Officer Name Role Phone No, Physician Primary Care Provider [phone] Encounter Details Date Type Department Care Team (Late st Contact Info) Description 08/12/2024 Telephone [facility] Advanced Medicine ([facility]) - [facility] Urology [address] [facility] Advanced Medicine 11th [place] [address] [place] [address] Chad Vivas Social History Tobacco Use Types Packs/Day Years Used Date Smoking Tobacco: Former Cigarettes 1 11 1 969 - 1979 Passive Smoke Exposure: Never Smokeless Tobacco: Never Alcohol Use Standard Drinks/Week Comments Yes 14 (1 standard drink = 0.6 oz pu re alcohol) social [facility] Utilities Answer Date Recorded In the past 12 months has [employer], gas, oil, or water [employer] threatened to shut off services in your [...] often do you attend chur ch or christianity services? 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 To keep the [...] sensitive matter. Carey can be reached at [phone] Patient Provider: Dr. Mcintosh Medical/Surgical Information: Outcome/Plan: documented in this encounter Plan of Treatment Not on file documented as of this encounter Visit Diagnoses Not on filedocumented in this encounter Care Teams Revenue Officer Relationship Specialty Start Date End Date No, Physician PCP - General 05/26/24 documented as of this encounter
--- OUTSIDE RECORDS SUMMARY | 2024-11-05 22:55 | XMS_ITS | Encounter Summary ---
Author Organization [facility] Healthcare Address [address] [place] [address] Care Team Providers Care Floor Scraper Name Role Phone No, Physician Primary Care Provider [phone] Encounter Details Date Type Department Care Team (Late st Contact Info) Description 07/15/2024 Telephone [facility] Radiology [address] [place] [address] Viry Stroud RN Social History Tobacco Use Types Packs/Day Years Used Date Smoking Tobacco: Former Cigarettes 1 11 969 1979 Passive Smoke Exposure: Never Smokeless Tobacco: Never Alcohol Use Standard Drinks/Week Comments Yes 14 (1 standard drink = 0.6 oz pu re alcohol) social [facility] Utilities Answer Date Recorded In the past 12 months has [employer], gas, oil, or water [employer] threatened to shut off services in your [...] on file 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 Pt instructed to be NPO 6 hours prior to procedure. Will bridge to lovenox BID 5 days prior to procedure, ordered to preferred pharmacy. CPAP previously completed 06/02/24.Pt's agreeable and verbalized understanding. Pt letter mailed to address as well as pt's nursing facility ([place], [place]). Nursing facility aware of lovenox bridge 5 days prior to procedure on 08/04/24. IR GENERAL PRE-PROCEDURE SCREENING Risk Level of Procedure: medium Procedure: Venogram Date of Procedure if scheduled: 08/04/24 Arrival Time: 1000 Location of procedure:[facility] Indication for Procedure: Lower extremity swelling [...] filedocumented in this encounter Care Teams Floor Scraper Relationship Specialty Start Date End Date No, Physician PCP - General 05/26/24 documented as of this encounter
--- OUTSIDE RECORDS SUMMARY | 2024-11-05 22:55 | XMS_ITS | Encounter Summary ---
Author Organization [facility] Address [address] [place] [address] Phone Care Team Providers Care Manager Action Name Role Phone No, Physician Primary Care Provider [phone] Reason for Visit * Reason Onset Date Comments Scheduling Appointments 07/10/2024 Encounter Details Date Type Department Care Team (Late st Contact Info) Description 07/10/2024 Telephone [facility] Radiology, Interventional Radiology [address] [facility] [address] [place] [address] Bree Cifuentes Scheduling Appointments Social History Tobacco Use Types Packs/Day Years Used Date Smoking Tobacco: Former Cigarettes 1 11 1 969 - 1979 Passive Smoke Exposure: Never Smokeless Tobacco: Never Alcohol Use Standard Drinks/Week Comments Yes 14 (1 standard drink = 0.6 oz pu re alcohol) social [facility] Utilities Answer Date Recorded In the past 12 months has [employer], oil, or water [employer] threatened to shut off services in your [...] file 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
--- OUTSIDE RECORDS SUMMARY | 2024-11-05 22:55 | XMS_ITS | Encounter Summary ---
Author Organization [facility] Address [address] [facility] [address] [place] [address] Phone Care Team Providers Care Manager Contracting Name Role Phone No, Physician Primary Care Provider [phone] Reason for Visit * Reason Comments Urinary Frequency Cath placed with kat ing facility Encounter Details Date Type Department Care Team (Late st Contact Info) Description 08/14/2024 3:00 PM CDT Office Visit [facility] Surgery [address] [facility] [address] [place] [address] Corry Lopez NP [address] [facility] [place] [address] Urinary incontinence due to urethral sphincter incompetence [...] Recorded In the past 12 months has [employer], gas, oil, or water company threatened to [...] on file 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 Advised to follow up if needed. Thanks for this referral. oCrry Lopez NP Please note: Livestock Commission Agent completed using M*Modal Fluency Direct speaking software, therefore, variances/typos may occur. 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
--- OUTSIDE RECORDS SUMMARY | 2024-11-05 22:55 | XMS_ITS | Encounter Summary ---
Author Organization [facility] Healthcare Address [address] [place] [address] Care Team Providers Care Secondary School Registrar Name Role Phone No, Physician Primary Care Provider [phone] Reason for Referral * Diagnostic Imaging (Routine) - Closed Specialty Diagnoses / Procedures Referred By Contac t Referred To Contact Radiology Diagnoses Lower extremity edema S/P insertion of IVC (inferior vena caval) filter History of pulmonary embolism Procedures IR Remove Vena Cava Filter IR Remove Vena Cava Filter IR Remove Vena Cava Filter Marcial Vu Jr., MD [address] [place] [address] Phone: tel: fax: [address] [address] Referral ID Status Reason Start Date Expiration Date Visits Re quested Visits Authorized [id number] Closed 04/08/2024 05/08/2025 1 1 Reason for Visit * Diagnostic Imaging (Routine) - Closed Specialty Diagnoses / Procedures Referred By Contac t Referred To Contact Radiology Diagnoses Lower extremity edema S/P insertion of IVC (inferior vena caval) filter History of pulmonary embolism Procedures IR Remove Vena Cava Filter IR Remove Vena Cava Filter IR Remove Vena Cava Filter Marcial Vu Jr., MD [address] [place] [address] Phone: tel: fax: [facility] [address] [facility] [place] [address] Referral ID Status Reason Start Date Expiration Date Visits Re quested Visits Authorized [id number] Closed 04/08/2024 05/08/2025 1 1 Encounter Details Date Type Department Care Team (Late st Contact Info) Description 06/19/2024 8:13 AM CDT - 06/19/2024 11:59 PM CDT Hospital Encounter [facility] Radiology [facility] [address] [facility] [place] [address] Marcial Vu Jr., MD [address] [facility] [address] [place] [address] Milan Crum MD [address] [facility] [address] [place] [address] Lower extremity edema; S/P insertion of IVC [...] alcohol) social [facility] Utilities Answer Date Recorded In the past 12 months has [employer], gas, oil, or water [employer] threatened to shut off services in your [...] often do you attend chur ch or congregation services? 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 To contact an Interventional Radiologist at [facility] call [phone] Sunday through Sunday from 7:30am-4:30pm. At all other times call [phone] and ask that the Interventional Radiologist be paged. To contact an Interventional Radiologist at [facility] call [phone] Sunday through Sunday from 7:30am-3:30pm. Special instructions: [...] date/time. Please come to: [] [address]rd [address] [facility] [] 4th floor [facility] [] [facility] [] [facility] Please call [phone] to schedule a follow up appointment. You [...] ound healing Take 1 tablet by mouth deer farmer before breakfast ondansetron ODT (ZOFRAN-ODT) 4 mg [...] 1 tablet (20 mEq total) by mouth deer farmer before breakfast 4 senna-docusate (PERICOLACE) 8.6-50 mg [...] been discussed with the patient and/or their commissary representative. All questions answered and they agree to proceed. * Post-Procedure Note - Darrian Gonzalez MD - 06/19/2024 9:00 AM CDT Radiology Brief Post Procedure Note Attending: Radames CARD Vat Tender: Carlos CARD Sedation/Anesthesia: Min Sedation Pre-Op/Pre-Procedure Diagnosis: [...] was obtained. Prior to beginning the procedure, [place] Protocol was performed to confirm the patient's [...] guidance and a guidewire passed centrally. A engineering analyst fluoroscopic image was obtained. A 6 Bermudian vascular sheath was inserted into the right [...] was obtained. Prior to beginning the procedure, [place] Protocol was performed to confirm the patient's [...] guidance and a guidewire passed centrally. A engineering analyst fluoroscopic image was obtained. A 6 Bermudian vascular sheath was inserted into the right [...] 06/19/2024 documented in this encounter Care Teams Secondary School Registrar Relationship Specialty Start Date End Date No, Physician PCP - General 05/26/24 documented as of this encounter
--- OUTSIDE RECORDS SUMMARY | 2024-11-05 22:55 | XMS_ITS | Encounter Summary ---
Author Organization [facility] Healthcare Address [address] [place] [address] Care Team Providers Care Early Childhood Worker Name Role Phone No, Physician Primary Care Provider [phone] Reason for Referral * Diagnostic Imaging (Routine) - Closed Specialty Diagnoses / Procedures Referred By Contac t Referred To Contact Diagnoses S/P laminectomy with spinal fusion Procedures XR Spine Lumbar 2 or 3 Views Marcial Vu Jr., MD [address] [place] [address] Phone: tel: fax: [facility] Radiology [address] [place] [phone] Phone: tel: Referral ID Status Reason Start Date Expiration Date Visits Re quested Visits Authorized [id number] Closed 06/20/2024 07/20/2025 1 1 * Diagnostic Imaging (Routine) - Closed Specialty Diagnoses / Procedures Referred By Contac t Referred To Contact Diagnoses S/P laminectomy with spinal fusion Procedures XR Spine Thoracic 2 Views Marcial Vu Jr., MD [address], [place] [address] Phone: tel: fax: [facility] Radiology [address] [place] [phone] Phone: tel: Referral ID Status Reason Start Date Expiration Date Visits Re quested Visits Authorized [id number] Closed 06/20/2024 07/20/2025 1 1 Reason for Visit * Diagnostic Imaging (Routine) - Closed Specialty Diagnoses / Procedures Referred By Contac t Referred To Contact Diagnoses S/P laminectomy with spinal fusion Procedures XR Spine Thoracic 2 Views Marcial Vu Jr., MD [address] [facility] 6A[address]6B[address]12A [place] [address] Phone: tel: fax: [facility] Radiology [address] [place] [address] [address] [place] [address] Phone: tel: Referral ID Status Reason Start Date Expiration Date Visits Re quested Visits Authorized [id number] Closed 06/20/2024 07/20/2025 1 1 Encounter Details Date Type Department Care Team (Latest Contact Info) Description 06/26/2024 9:30 AM CDT - 06/26/2024 11:59 PM CDT Hospital Encounter [facility] Radiology [address] [place] [address] [address] [facility] [address] S/P laminectomy with spinal fusion Discharge Disposition: Discharge to home or self care Social History Tobacco Use Types Packs/Day Years Used Date Smoking Tobacco: Former Cigarettes 1 11 9 - 1979 Passive Smoke Exposure: Never Smokeless Tobacco: Never Alcohol Use Standard Drinks/Week Comments Yes 14 (1 standard drink = 0.6 oz pu re alcohol) social [facility] Utilities Answer Date Recorded In the past 12 months has [employer], gas, oil, or water [employer] threatened to shut off services in your [...] How often do you attend [facility] or catholic services? 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
--- OUTSIDE RECORDS SUMMARY | 2024-11-05 22:55 | XMS_ITS | Encounter Summary ---
Author Organization [facility] Address [address] [place] [address] Phone Care Team Providers Care Hand Mica Plate Layer Name Role Phone No, Physician Primary Care Provider [phone] Reason for Referral * Consultation (Routine) - Closed Specialty Diagnoses / Procedures Referred By Contact Referred To Contact Physical Medicine and Rehabilitation Diagnoses S/P laminectomy with spinal fusion Injury of thoracic spinal cord, subsequent encounter (HCC) Marcial Vu Jr., MD [address] [place] [address] Phone: tel:[phone] fax: [facility] (All Locations) Referral ID Status Reason Start Date Expiration Date V isits Requested Visits Authorized [id number] Closed Specialty Services Required 06/26/2024 07/26/2025 1 1 Question Answer Please select the performing region: [facility] (All Locations) [167] Which type of service [...] 2 Views Marcial Vu Jr., MD [address] [facility] [address] [place] [address] Phone: tel: fax: [facility] [place] [address] [place] [address] [address] [place] [address] Phone: tel: Referral ID Status Reason Start Date Expiration Date Visits Re quested Visits Authorized [id number] Closed 06/20/2024 07/20/2025 1 1 * Diagnostic Imaging (Routine) - Closed Specialty Diagnoses / Procedures Referred By Contac t Referred To Contact Diagnoses S/P laminectomy with spinal fusion Procedures XR Spine Lumbar 2 or 3 Views Marcial Vu Jr., MD [address] [facility] [address] [place] [address] Phone: tel: fax: [facility] [address] [place] [address] Phone: tel: Referral ID Status Reason Start Date Expiration Date Visits Re quested Visits Authorized [id number] Closed 06/20/2024 07/20/2025 1 1 Reason for Visit * Reason Comments Return Patient Encounter Details Date Type Department Care Team (Late st Contact Info) Description 06/26/2024 10:00 AM CDT Office Visit [facility] Orthopaedic Surgery [address] [place] [address] Medical Office Building [address] [place] [id number] Marcial Vu Jr., MD [address] [facility] [address] [place] [address] Injury of thoracic spinal cord, subsequent encounter ([facility]) (Primary Dx); S/P laminectomy with spinal fusion Social History Tobacco Use Types Packs/Day Years Used Date Smoking Tobacco: Former Cigarettes 1 11 969 1979 Passive Smoke Exposure: Never Smokeless Tobacco: Never Alcohol Use Standard Drinks/Week Comments Yes 14 (1 standard drink = 0.6 oz pu re alcohol) social [facility] Utilities Answer Date Recorded In the past 12 months has [employer], gas, oil, or water [employer] threatened to shut off services in your [...] often do you attend chur ch or islam services? 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 Kasey Mari MA, ATC Racing Driver to Dr. Marcial Vu Department of Orthopedic Spine Surgery Galian Franco RN, BSN Clinical Nurse Coordinator to [...] his , Val. He is living at [facility]. Both he and his are happy with [...] with this plan. Marcial Vu Jr., MD [place] Department of Orthopaedic Surgery Division of Spine Surgery [facility] [place], [place] Junior Architect done by [employer]; therefore, variances and [...] Luis St MD Marcial Vu Jr., MD [facility] [place]ED[place] F inal Result documented in this encounter Visit Diagnoses Diagnosis Injury of thoracic spinal cord, subsequent encounter (HCC)- Primary S/P laminectomy with spinal fusion Arthrodesis status S/P laminectomy with spinal fusion Arthrodesis status documented in this encounter Care Teams Hand Mica Plate Layer Relationship Specialty Start Date End Date No, Physician PCP - General 05/26/24 documented as of this encounter
--- OUTSIDE RECORDS SUMMARY | 2024-11-05 22:55 | XMS_ITS | Encounter Summary ---
Author Organization [facility] Healthcare Address [address] [place] [address] Care Team Providers Care Pega Developer Name Role Phone No, Physician Primary Care Provider [phone] Encounter Details Date Type Department Care Team (Late st Contact Info) Description 08/05/2024 Telephone [facility] Radiology [address] [place] [address] Viry Stroud RN Social History Tobacco Use Types Packs/Day Years Used Date Smoking Tobacco: Former Cigarettes 1 11 969 1979 Passive Smoke Exposure: Never Smokeless Tobacco: Never Alcohol Use Standard Drinks/Week Comments Yes 14 (1 standard drink = 0.6 oz pu re alcohol) social [facility] Utilities Answer Date Recorded In the past 12 months has [employer], gas, oil, or water [employer] threatened to shut off services in [...] on file 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 Per procedure plans, pt will continue therapeutic Lovenox for 1 month. Lois from [facility] made aware and verbalized understanding. Letter faxed with information. [place] direct line given for call back as needed. documented in this encounter Plan of Treatment Not on file documented as of this encounter Visit Diagnoses Not on filedocumented in this encounter Care Teams Pega Developer Relationship Specialty Start Date End Date No, Physician PCP - General 05/26/24 documented as of this encounter
--- OUTSIDE RECORDS SUMMARY | 2024-11-05 22:55 | XMS_ITS | Encounter Summary ---
Author Organization [facility] Healthcare Address [address] [place] [address] Care Team Providers Care Ell Tutor Name Role Phone No, Physician Primary Care Provider [phone] Encounter Details Date Type Department Care Team (Late st Contact Info) Description 08/05/2024 Telephone [facility] Radiology [address] [place] [address] Viry Stroud RN Social History Tobacco Use Types Packs/Day Years Used Date Smoking Tobacco: Former Cigarettes 1 11 969 1979 Passive Smoke Exposure: Never Smokeless Tobacco: Never Alcohol Use Standard Drinks/Week Comments Yes 14 (1 standard drink = 0.6 oz pu re alcohol) social [facility] Utilities Answer Date Recorded In the past 12 months has [employer], gas, oil, or water [employer] threatened to shut off services in your [...] on file Legal Sex 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
--- OUTSIDE RECORDS SUMMARY | 2024-11-05 22:55 | XMS_ITS | Encounter Summary ---
Author Organization [facility] Address [address] [place] [address] Phone Care Team Providers Care Decorator Street And Building Name Role Phone No, Physician Primary Care Provider [phone] Encounter Details Date Type Department Care Team (Late st Contact Info) Description 06/27/2024 Telephone [facility] Surgery [address] [place] [address] Nora Collins Social History Tobacco Use Types Packs/Day Years Used Date Smoking Tobacco: Former Cigarettes 1 11 969 - 1979 Passive Smoke Exposure: Never Smokeless Tobacco: Never Alcohol Use Standard Drinks/Week Comments Yes 14 (1 standard drink = 0.6 oz pu re alcohol) social C Utilities Answer Date Recorded In the past 12 months has [employer], gas, oil, or water [employer] threatened to shut off services in your [...] on file Legal Sex Male 9: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 Please call Carey at [phone] Patient Provider: [facility] Information: Outcome/Plan: documented in this encounter Plan of Treatment Not on file documented as of this encounter Visit Diagnoses Not on filedocumented in this encounter Care Teams Decorator Street And Building Relationship Specialty Start Date End Date No, Physician PCP - General 05/26/24 documented as of this encounter
--- OUTSIDE RECORDS SUMMARY | 2024-11-05 22:55 | XMS_ITS | Encounter Summary ---
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
--- OUTSIDE RECORDS SUMMARY | 2024-11-05 22:55 | XMS_ITS | Encounter Summary ---
Author Organization [facility] Healthcare Address [address] [place] [address] Care Team Providers Care Data Control Assistant Name Role Phone No, Physician Primary Care Provider [phone] Reason for Referral * Diagnostic Imaging (Routine) - Closed Specialty Diagnoses / Procedures Referred By Charlesac t Referred To Contact Diagnoses Nephrolithiasis Procedures US Kidney Complete Temo Mcintosh MD [address] [facility] [place] [address] Phone: tel: fax: [address] [address] Referral ID Status Reason Start Date Expiration Date Visits Re quested Visits Authorized [id number] Closed 06/06/2024 07/06/2025 1 1 Reason for Visit * Diagnostic Imaging (Routine) - Closed Specialty Diagnoses / Procedures Referred By Contac t Referred To Contact Diagnoses Nephrolithiasis Procedures US Kidney Complete Temo Mcintosh MD [address] [facility] [place] [address] Phone: tel: fax: [address] [address] Referral ID Status Reason Start Date Expiration Date Visits Re quested Visits Authorized [id number] Closed 06/06/2024 07/06/2025 1 1 Encounter Details Date Type Department Care Team (Latest Contact Info) Description 06/23/2024 9:39 AM CDT - 06/23/2024 11:59 PM CDT Hospital Encounter [facility] Imaging [address] [address] Nephrolithiasis Discharge Disposition: Discharge to home or self care Social History Tobacco Use Types Packs/Day Years Used Date Smoking Tobacco: Former Cigarettes 1 11 969 - 1979 Passive Smoke Exposure: Never Smokeless Tobacco: Never Alcohol Use Standard Drinks/Week Comments Yes 14 (1 standard drink = 0.6 oz pu re alcohol) social [facility] Utilities Answer Date Recorded In the past 12 months has [employer], gas, oil, or water company threatened [...] often do you attend chur ch or anglican services? 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 us Temo Mcintosh MD [facility] [place]ED[place] Final Result documented in this encounter Visit Diagnoses Diagnosis Nephrolithiasis Calculus of kidney documented in this encounter Care Teams Data Control Assistant Relationship Specialty Start Date End Date No, Physician PCP - General 05/26/24 documented as of this encounter
--- OUTSIDE RECORDS SUMMARY | 2024-11-05 22:56 | XMS_ITS | Encounter Summary ---
Author Organization [facility] [place] [facility] Address [address] [place] [address] Phone Care Team Providers Care Garment Tag Stringer Name Role Phone Rl Medina DO Primary Care Provider Reason for Referral * Diagnostic Imaging (Routine) - Pending Review Specialty Diagnoses / Procedures Referred By Manisha gale Referred To Contact Diagnoses Pulmonary embolism, unspecified chronicity, unspecified pulmonary embolism type, unspecified whether acute cor pulmonale present (HCC) Procedures US Vein Duplex Lower Extremity Bilateral Complete Katharine Way MD [address] [place] [address] Phone: tel: fax: [facility] (All Locations) Referral ID Status Reason Start Date Expiration Date V isits Requested Visits Authorized [id number] Pending Review 02/13/2024 03/14/2025 99 99 Reason for Visit * Consultation (Routine) - Closed Specialty Diagnoses / Procedures Referred By Manisha gale Referred To Contact Hematology Diagnoses Hospital discharge follow-up Rae Weller NP [address] [place] [address] Phone: tel: fax: Katharine Way MD [address] [place] [address] Phone: tel: fax: Referral ID Status Reason Start Date Expiration Date V isits Requested Visits Authorized [id number] Closed Specialty Services Required 11/16/2023 11/04/2024 99 99 Encounter Details Date Type Department Care Team (Late st Contact Info) Description 04/11/2024 9:00 AM CDT Office Visit [facility] Hematology [address] [facility] 7th [place] [address] [place] [address] MD [address] [place] [address] Pulmonary embolism, unspecified chronicity, unspecified pulmonary embolism [...] Recorded In the past 12 months has [employer], gas, oil, or water company threatened to [...] on file 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 [facility] Per his , he was ambulating at [...] Given the above, he was readmitted to [facility] and initiated on anticoagulant therapy. He was started on anticoagulant therapy and eventually discharged on enoxaparin 80 mg subcutaneously every 12 hours. The family states that he was maintained on enoxaparin until admitted to his current rehabilitation facility, [facility]. Shortly after admission, the decision was made [...] by mouth 2 (two) times a day tukxlpkk-zsqugthfa-luzzqdp HMB 7-7-1.5 gram powder in packet Take [...] multivitamin tablet Take 1 tablet by mouth driftman before breakfast nitrofurantoin monohydrate (MACROBID) 100 mg [...] 1 tablet (20 mEq total) by mouth driftman before breakfast senna-docusate (PERICOLACE) 8.6-50 mg Take 1 tablet by mouth nightly (Patient taking differently: Take 1 tablet by mouth driftman before breakfast) tamsulosin (FLOMAX) 0.4 mg extended [...] Narrative 04/11/2024 12:48 PM CDT [facility] - Department of Vascular Surgery, Vascular Laboratory [address] [place] [address] Lower Extremity Venous Ultrasound Report Patient Name: HIRA EVANS : 1950 (73y 9m) Study Date: 04/11/2024 10:37:34 AM Gender: M Tech: TT Location: [facility] Provider: KATHARINE WAY ?Quality: Adequate [...] acute cor pulmonale present - FINDINGS: Performing [employer] Architect: Tremaine Albright RVT. Bilateral: Venous Doppler signals [...] above. Electronically Signed By: Scott Martinez MD [facility] 2024-04-11 12:48:17 CDT Procedure Note Scott Martinez MD - 04/11/2024 [facility] - Department of Vascular Surgery,Vascular Laboratory [address] [place] [address] Lower Extremity Venous Ultrasound Report Patient Name: HIRA EVANS : 1950 (73y 9m) Study Date: 04/11/2024 10:37:34 AM Gender: M Tech: TT Location: [facility] Ref Provider: KATHARINE WAY Quality: Adequate Order [...] acute cor pulmonale present - FINDINGS: Performing [employer] Architect: Tremaine Albright RVT. Bilateral: Venous Doppler signals [...] above. Electronically Signed By: Scott Martinez MD [facility] 2024-04-11 12:48:[address] MD IMG US PROCEDURES Fi nal Result * Vitamin B12 (04/11/2024 10:31 AM CDT) Vitamin B12 391 230 - 1,250 pg/mL Blood 04/11/2024 10:3 1 AM CDT 04/11/2024 12:00 PM [address]T us [address]arine [address] MD LAB BLOOD ORDERABLES Final Result Performing Organization Address City/[facility]/ZIP Co de Phone Number [facility] Department [place] [address] * Folate (04/11/2024 10:31 AM CDT) Folic acid 16.7 >=5.0 ng/mL Blood 04/11/2024 10:3 1 AM CDT 04/11/2024 12:[address] MD LAB BLOOD ORDERABLES Final Result [facility] Department [place] [address] * Ferritin (04/11/2024 10:31 AM CDT) Ferritin 261 30 - 400 ng/mL Blood 04/11/2024 10:3 1 AM CDT 04/11/2024 12:[address] us [address]arine [address] MD LAB BLOOD ORDERABLES Final Result Performing Organization Address [facility] Co de Phone Number [facility] Department [place] [address] * (ABNORMAL) Iron profile w/ IBC (04/11/2024 10:31 AM CDT) Pathologist [facility] Iron 48(L) 50 - 150 mcg/dL TIBC 206(L) 250 - 400 mcg/dL [facility] Transferrin saturation 23 20 - 50 % [facility] ZARAGOZA Blood 04/11/2024 10:3 1 AM CDT 04/11/2024 12:[address] MD LAB BLOOD ORDERABLES Final Result Performing Organization Address [facility] de Phone Number [facility] Department [place] [address] * (ABNORMAL) Comprehensive metabolic panel (04/11/2024 10:31 AM CDT) [facility] Sodium 139 135 - 145 mmol/L Comment:Testing performed by : [facility], [address] [place] [phone] Potassium, pl 3.6 3.3 - 4.9 mmol/L [facility] Comment:Testing performed by : [facility], [address] [place] [phone] Chloride 101 97 - 110 mmol/L LAURA ZARAGOZA Comment:Testing performed by : [facility], [address] [place] [phone] CO2 30 22 - 32 mmol/L [facility]URA ZARAGOZA Comment:Testing performed by : [facility], [address] [place] [phone] Anion gap 8 2 - 15 mmol/L [facility]URA ZARAGOZA Comment:Testing performed by : [facility], [address] [place] [phone] BUN 21 6 - 25 mg/dL [facility] Comment:Testing performed by : [facility], [address] [place] [phone] Creatinine 0.63(L) 0.80 - 1.30 mg/dL CERNER BJ Comment:Testing performed by : [facility], [address] [place] [phone] Glucose 103 70 - 199 mg/dL CERNER [...] was last revised 2022. Testing performed by: [address] [address] Calcium 9.6 8.5 - 10.3 mg/dL CERNER BJ Comment:Testing performed by : [address] [address] Bilirubin, total 0.3 0.1 - 1.2 mg/dL CERNER BJ Comment:Testing performed by : [address] [address] Protein, pl 7.4 6.5 - 8.5 g/dL CERNER BJ Comment:Testing performed by : [address] [phone] Albumin 4.1 3.5 - 5.0 g/dL CERNER BJ Comment:Testing performed by : [address] [address] Alk phos 93 40 - 130 Units/L CERNER BJ Comment:Testing performed by : [address] [phone] ALT 13 7 - 55 Units/L CERNER BJ Comment:Testing performed by : [address] [address] AST 14 10 - 50 Units/L CERNER BJ Comment:Testing performed by : [address] [phone] Blood 04/11/2024 10:3 1 AM CDT 04/11/2024 10:[address] MD LAB BLOOD ORDERABLES Final Result [facility] Department [place] [address] * (ABNORMAL) CBC with auto differential (04/11/2024 10:31 AM CDT) WBC 5.8 3.8 - 9.8 K/cumm Comment:Testing performed by : [address] [address] Hgb 12.0(L) 13.8 - 17.2 g/dL [facility] Comment:Testing performed by : [address] [address] Hct 35.8(L) 40.7 - 50.3 % LAURA ZARAGOZA Comment:Testing performed by : [address] [address] Plt 213 140 - 440 K/cumm LAURA ZARAGOZA Comment:Testing performed by : [address] [address] MPV 7.7 6.8 - 10.4 fL LAURA BJ Comment:Testing performed by : [address] [address] RBC 3.95(L) 4.50 - 5.70 M/cumm LAURA BJ Comment:Testing performed by : [address] [address] MCV 90.5 80.0 - 97.6 fL CERMICHAEL BJ Comment:Testing performed by : [address] [address] MCH 30.5 26.7 - 33.7 pg CERMICHAEL BJ Comment:Testing performed by : [address] [address] MCHC 33.7 32.7 - 35.5 g/dL LAURA ZARAGOZA Comment:Testing performed by : [facility], [address] [facility] [address] RDW CV 16.6(H) 11.8 - 14.6 % LAURA ZARAGOZA Comment:Testing performed by : [facility], [address] [facility] [address] NRBC abs 0.00 0.00 - 0.01 K/cumm LAURA ZARAGOZA Comment:Testing performed by : [facility], [address] [place] [phone] Blood 04/11/2024 10:3 1 AM CDT 04/11/2024 10:33 AM CDT us [address]arine Way MD LAB BLOOD ORDERABLES Final Result [facility] Department [place] [address] documented in this encounter Visit Diagnoses Diagnosis [...] 024 documented in this encounter Care Teams Garment Tag Stringer Relationship Specialty Start Date End Date Rl Medina DO [address] [place] [address] PCP - General 08/09/17 05/25/24 documented as of this encounter
--- OUTSIDE RECORDS SUMMARY | 2024-11-05 22:56 | XMS_ITS | Encounter Summary ---
Author Organization [facility] Address [address] [place] [address] Phone Care Team Providers Care Program Director Substance Abuse Name Role Phone Rl Medina DO Primary Care Provider Encounter Details Date Type Department Care Team (Late st Contact Info) Description 04/15/2024 Telephone [facility] Epilepsy [address] 6th [place] [address] [place] [id number] Jose Elias Osorio MD PhD [address] [place] [address] Social History Tobacco Use Types Packs/Day Years Used Date Smoking Tobacco: Former Cigarettes 1 11 969 - 1979 Passive Smoke Exposure: Never Smokeless Tobacco: Never Alcohol Use Standard Drinks/Week Comments Yes 14 (1 standard drink = 0.6 oz pu re alcohol) social C Utilities Answer Date Recorded In the past 12 months has [employer], gas, oil, or water [employer] threatened to shut off services in your [...] 12/27/2023 How often do you attend [facility] or adventism services? 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 * Addendum Note - Fay Johnson RN - 04/15/2024 3:42 PM CDTAddended by: FAY JOHNSON on: 04/15/2024 03:42 PM Modules accepted: Orders * Telephone Encounter - Fay Johnson RN - 04/15/2024 3:40 PM CDT Images from the original note were not included. Jose Elias Osorio MD PhD to Tn 04/15/24 2:58 PM LEV 500/1000 for 2 weeks then 500 bid for 2 weeks then 500 at HS for 2 weeks then stop and call after another 2 weeks Called and updated Glenna with Dr. Osorio's recommendations. Prescription sent to [facility]. Will fax order to Glenna at [phone] * Telephone Encounter - Fay Johnson RN - 04/15/2024 2:52 PM CDT Called Glenna (nurse at [facility]) at [facility]. Updated her on the Ambulatory EEG [...] medication, if you could call Glenna at [phone] or [phone] Thank You, Sydney STOCKTON documented in this [...] documented as of this encounter Care Teams Program Director Substance Abuse Relationship Specialty Start Date End Date Rl Medina DO [address] [place] [address] PCP - General 08/09/17 05/25/24 documented as of this encounter
--- OUTSIDE RECORDS SUMMARY | 2024-11-05 22:56 | XMS_ITS | Encounter Summary ---
Author Organization [facility] Healthcare Address [address] [place] [address] Care Team Providers Care Telephone Order Clerk Name Role Phone Rl Medina DO Primary Care Provider [phone] Reason for Visit * MRI/CAT/PET Scan (Routine) - Pending Review Specialty Diagnoses / Procedures Referred By Contac t Referred To Contact Radiology Diagnoses Pulmonary embolism, unspecified chronicity, unspecified pulmonary embolism type, unspecified whether acute cor pulmonale present (HCC) Procedures CT Chest PE (CTA) W Contrast CTA Chest W Contrast Katharine Hampton MD [address] [facility] [address] [place] [address] Phone: tel: fax: [address] [phone] Referral ID Status Reason Start Date Expiration Date V isits Requested Visits Authorized [id number] Pending Review 02/13/2024 03/14/2025 1 1 Encounter Details Date Type Department Care Team (Latest Contact Info) Description 04/11/2024 7:44 AM CDT - 04/11/2024 11:59 PM CDT Hospital Encounter [facility] [address] [place] [address] Pulmonary embolism, unspecified chronicity, unspecified pulmonary [...] = 0.6 oz pu re alcohol) social [facility] Utilities Answer Date Recorded In the past [...] on file 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 Gender Identity Not on file Sexual Orientation Not on file 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 on file Not [...] ound healing Take 1 tablet by mouth pharmacy intake technician before breakfast ondansetron ODT (ZOFRAN-ODT) 4 mg [...] 1 tablet (20 mEq total) by mouth pharmacy intake technician before breakfast 4 senna-docusate (PERICOLACE) 8.6-50 mg [...] 04/11/2024 8:05 AM CDT us Rae Weller BUGGY RUNNER LAB POCT ORDERABLES - DEVIC E Final Result [facility] Department [place] [address] documented in this encounter Visit Diagnoses Diagnosis [...] 05/2024 documented in this encounter Care Teams Telephone Order Clerk Relationship Specialty Start Date End Date Rl Medina DO [address] [place] [address] PCP - General 08/09/17 05/25/24 documented as of this encounter
--- OUTSIDE RECORDS SUMMARY | 2024-11-05 22:56 | XMS_ITS | Encounter Summary ---
Author Organization [facility] Healthcare Address [address] [place] [address] Care Team Providers Care Sales Representative Adding Machines Name Role Phone No, Physician Primary Care Provider [phone] Encounter Details Date Type Department Care Team (Late st Contact Info) Description 06/02/2024 Telephone Radiology [address] [place] [address] Macy Fernando RN Social History Tobacco Use Types Packs/Day Years Used Date Smoking Tobacco: Former Cigarettes 1 11 969 1979 Passive Smoke Exposure: Never Smokeless Tobacco: Never Alcohol Use Standard Drinks/Week Comments Yes 14 (1 standard drink = 0.6 oz pu re alcohol) social C Utilities Answer Date Recorded In the past 12 months has [employer] electric, gas, oil, or water [employer] threatened to shut off services in your [...] file 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 Patient's IVC filter retrieval moved to 06/19/24, 1000, 0800 arrival. verbalized understanding. Updated letter sent to patient via [employer]. documented in this encounter Plan of Treatment Not on file documented as of this encounter Visit Diagnoses Not on filedocumented in this encounter Care Teams Sales Representative Adding Machines Relationship Specialty Start Date End Date No, Physician PCP - General 05/26/24 documented as of this encounter
--- OUTSIDE RECORDS SUMMARY | 2024-11-05 22:56 | XMS_ITS | Encounter Summary ---
Author Organization [facility] Healthcare Address [address] [place] [address] Care Team Providers Care Junior Accountant Bookkeeper Name Role Phone Rl Medina DO Primary Care Provider Encounter Details Date Type Department Care Team (Late st Contact Info) Description 05/06/2024 Telephone Radiology [address] [place] [address] Macy Fernando RN Social History Tobacco Use Types Packs/Day Years Used Date Smoking Tobacco: Former Cigarettes 1 11 1 969 - 1979 Passive Smoke Exposure: Never Smokeless Tobacco: Never Alcohol Use Standard Drinks/Week Comments Yes 14 (1 standard drink = 0.6 oz pu re alcohol) social [facility] Utilities Answer Date Recorded In the past 12 months has [employer] electric, gas, oil, or water company threatened [...] attend chur ch or tenriism services? 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 IR Attending: Radames Referring Provider: Bench Insurance carrier verified? Yes Appt info letter [...] on filedocumented in this encounter Care Teams Junior Accountant Bookkeeper Relationship Specialty Start Date End Date Rl Medina DO [address] [place] [address] PCP - General 08/09/17 05/25/24 documented as of this encounter
--- OUTSIDE RECORDS SUMMARY | 2024-11-05 22:56 | XMS_ITS | Encounter Summary ---
Author Organization [facility] Address [address] [place] [address] Phone Care Team Providers Care Spray Rig Operator Name Role Phone Rl Medina DO Primary Care Provider [phone] Reason for Visit * Diagnostic Imaging (Routine) - Pending Review Specialty Diagnoses / Procedures Referred By Contac t Referred To Contact Diagnoses Pulmonary embolism, unspecified chronicity, unspecified pulmonary embolism type, unspecified whether acute cor pulmonale present (HCC) Procedures US Vein Duplex Lower Extremity Bilateral Complete Tigre Way MD [address] [place] [address] Phone: tel: fax: [facility] (All Locations) Referral ID Status Reason Start Date Expiration Date V isits Requested Visits Authorized [id number] Pending Review 02/13/2024 03/14/2025 99 99 Encounter Details Date Type Department Care Team (Latest Contact Info) Description 04/11/2024 11:00 AM CDT Ancillary Procedure [facility] Vascular Lab at the [facility] [address] [place] [address] Advanced Medicine 8th [place] [address] [place] [address] Pulmonary embolism, unspecified chronicity, unspecified pulmonary embolism type, unspecified whether acute cor pulmonale present (HCC) Social History Tobacco Use Types Packs/Day Years Used Date Smoking Tobacco: Former Cigarettes 1 11 1 969 - 1979 Passive Smoke Exposure: Never Smokeless Tobacco: Never Alcohol Use Standard Drinks/Week Comments Yes 14 (1 standard drink = 0.6 oz pu re alcohol) social [facility] Utilities Answer Date Recorded In [...] on file 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 Gender Identity Not on file Sexual Orientation Not on file 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 Bilateral: Venous Doppler [...] Procedure Note Scott Martinez MD - 04/11/2024 [facility] - Department of Vascular Surgery,Vascular Laboratory [address] [place] [address] Lower Extremity Venous Ultrasound Report Patient Name: [...] acute cor pulmonale present - FINDINGS: Performing Web Applications Architect: Tremaine Albright RVT. Bilateral: Venous Doppler [...] above. Electronically Signed By: Scott Martinez MD [facility] 2024-04-11 12:48:[address] MD [facility] [place] PROCEDURES Fi nal Result documented in this encounter Visit Diagnoses Diagnosis Pulmonary embolism, unspecified chronicity, unspecified pulmonary embolism type, unspecified whether acute cor pulmonale present (HCC) documented in this encounter Care Teams Spray Rig Operator Relationship Specialty Start Date End Date Rl Medina DO [address] [place] [address] PCP - General 08/09/17 05/25/24 documented as of this encounter
--- OUTSIDE RECORDS SUMMARY | 2024-11-05 22:56 | XMS_ITS | Encounter Summary ---
Author Organization [facility] Healthcare Address [address] [place] [address] Care Team Providers Care Rn Medication Name Role Phone No, Physician Primary Care Provider [phone] Encounter Details Date Type Department Care Team (Late st Contact Info) Description 05/29/2024 Telephone Radiology [address] [place] [address] Macy Fernando RN Social History Tobacco Use Types Packs/Day Years Used Date Smoking Tobacco: Former Cigarettes 1 11 969 1979 Passive Smoke Exposure: Never Smokeless Tobacco: Never Alcohol Use Standard Drinks/Week Comments Yes 14 (1 standard drink = 0.6 oz pu re alcohol) social C Utilities Answer Date Recorded In the past 12 months has [employer] electric, gas, oil, or water [employer] threatened to shut off services in your [...] on file 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
--- OUTSIDE RECORDS SUMMARY | 2024-11-05 22:56 | XMS_ITS | Encounter Summary ---
Author Organization [facility] Healthcare Address [address] [place] [address] Care Team Providers Care Business Development Assistant Name Role Phone No, Physician Primary Care Provider [phone] Encounter Details Date Type Department Care Team (Late st Contact Info) Description 06/02/2024 Orders Only Radiology [address] [place] [address] Macy Fernando RN Presence of IVC filter [...] chur ch or oriental orthodox services? 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 Chloride 105 97 - 110 mmol/L [facility] CO2 32 22 - 32 mmol/L [facility] Anion gap 6 2 - 15 mmol/L [facility] BUN 18 6 - 25 mg/dL [facility] Creatinine 0.72(L) 0.80 - 1.30 mg/dL [facility] Glucose 103 70 - 199 mg/dL [facility] Comment: Interpretive Data Fasting glucose >/= [...] 2022. Calcium 9.7 8.5 - 10.3 mg/dL [facility] Bilirubin, total 0.7 0.1 - 1.2 mg/dL [facility] Protein, pl 7.8 6.5 - 8.5 g/dL [facility] Albumin 3.9 3.5 - 5.0 g/dL [facility] Alk phos 96 40 - 130 Units/L [facility] ALT 16 7 - 55 Units/L [facility] AST 26 10 - 50 Units/L [facility] Blood 06/19/2024 8:07 AM CDT 06/19/2024 8:36 AM CDT us Milan Crum MD LAB BLOOD ORDERABLES Final Result [facility] Department [place] [address] * (ABNORMAL) CBC with auto differential (06/19/2024 8:07 AM CDT) WBC 5.8 3.8 - 9.9 K/cumm Hgb 11.3(L) 13.0 - 17.5 g/dL [facility] Hct 34.4(L) 38.9 - 50.3 % [facility] Plt 198 150 - 400 K/cumm [facility] MPV 11.0 9.1 - 12.3 fL [facility] RBC 3.50(L) 4.30 - 5.80 M/cumm [facility] MCV 98.3(H) 81.3 - 96.4 fL [facility] MCH 32.3 27.1 - 33.3 pg [facility] MCHC 32.8 32.3 - 35.7 g/dL [facility] RDW CV 14.8 11.1 - 14.9 % [facility] RDW SD 53.8(H) 35.7 - 48.1 fL [facility] NRBC abs 0.00 0.00 - 0.01 K/cumm [facility] Blood 06/19/2024 8:07 AM CDT 06/19/2024 8:36 AM CDT us Milan Crum MD LAB BLOOD ORDERABLES Final Result Performing Organization Address City/State/[facility] Co de Phone Number [facility] Department [place] [address] documented in this encounter Visit Diagnoses Diagnosis Presence of IVC filter- Primary documented in this encounter Care Teams Business Development Assistant Relationship Specialty Start Date End Date No, Physician PCP - General 05/26/24 documented as of this encounter
--- OUTSIDE RECORDS SUMMARY | 2024-11-05 22:56 | XMS_ITS | Encounter Summary ---
Author Organization [facility] Healthcare Address [address] [place] [address] Care Team Providers Care Mat Cutter Name Role Phone No, Physician Primary Care Provider [phone] Encounter Details Date Type Department Care Team (Late st Contact Info) Description 06/16/2024 Telephone [facility] Radiology [address] [place] [address] Justin Frank RN Social History Tobacco Use Types Packs/Day Years Used Date Smoking Tobacco: Former Cigarettes 1 11 969 1979 Passive Smoke Exposure: Never Smokeless Tobacco: Never Alcohol Use Standard Drinks/Week Comments Yes 14 (1 standard drink = 0.6 oz pu re alcohol) social [facility] Utilities Answer Date Recorded In the past 12 months has [employer], gas, oil, or water [employer] threatened to shut off services in your [...] often do you attend chur ch or anabaptism services? 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
--- OUTSIDE RECORDS SUMMARY | 2024-11-05 22:56 | XMS_ITS | Encounter Summary ---
Author Organization [facility] Healthcare Address [address] [place] [address] Care Team Providers Care Division Order Technician Name Role Phone Rl Medina DO Primary Care Provider Encounter Details Date Type Department Care Team (Latest Contact Info) Description 04/11/2024 8:45 AM CDT - 04/11/2024 11:59 PM CDT Hospital Encounter [facility] [address] [place] [address] Pulmonary embolism, unspecified chronicity, unspecified pulmonary embolism [...] Recorded In the past 12 months has [employer], gas, oil, or water [employer] threatened to shut off services in your [...] week 12/27/2023 How often do you attend [facility] or [facility] services? 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 Testing performed by: [facility], [address] [place] [phone] Blood 04/11/2024 10:3 1 AM CDT 04/11/2024 10:33 AM CDT Katharine Hampton MD LAB BLOOD ORDERABLES Final Result [facility] [place] [address] * Differential, auto (04/11/2024 10:31 AM CDT) Neutrophil abs 3.4 1.5 - 6.6 K/cumm Comment:Testing performed by : [facility], [address] [place] [phone] Lymphocyte abs 1.6 1.2 - 3.3 K/cumm C[facility]ER [facility] Comment:Testing performed by : [facility], [address] [place] [phone] Monocyte abs 0.4 0.2 - 1.2 K/cumm CERNER BJ Comment:Testing performed by : [facility], [address] [place] [phone] Eosinophil abs 0.3 0.0 - 0.5 K/cumm CERNER BJ Comment:Testing performed by : [facility], [address] [place] [phone] Basophil abs 0.0 0.0 - 0.2 K/cumm CERNER BJ Comment:Testing performed by : [address] [phone] Neutrophil pct 59.2 % C[facility]ER [facility] Comment: Interpretive Data Percent cell count reference ranges are not reported, since discordance with absolute values may lead to misinterpretation of CBC data. Current Interpretive Data was last revised on 2018. Testing performed by: [facility], [address] [place] [phone] Lymphocyte pct 26.7 % C[facility]ER [facility]J Comment: Interpretive Data Percent cell count reference ranges are not reported, since discordance with absolute values may lead to misinterpretation of CBC data. Current Interpretive Data was last revised on 2018. Testing performed by: [facility], [facility] [phone] Monocyte pct 7.6 % [facility] Comment:Testing performed by : [facility], [address] [place] [phone] Eosinophil pct 5.8 % [facility] Comment:Testing performed by : [facility], [address] [place] [phone] Basophil pct 0.7 % [facility] Comment:Testing performed by : [facility], [address] [place] [phone] Blood 04/11/2024 10:3 1 AM CDT 04/11/2024 10:33 AM CDT Katharine Hampton MD LAB BLOOD ORDERABLES Final Result Performing Organization Address City/[facility]/ZIP Co de Phone Number [facility] [place] [address] * Magnesium (04/11/2024 10:31 AM CDT) Pathologist [facility] Magnesium 2.2 1.4 - 2.5 mg/dL Comment:Testing performed by : [facility], [address] [place] [phone] Blood 04/11/2024 10:3 1 AM CDT 04/11/2024 10:33 AM CDT Jimenez Henao MD LAB BLOOD ORDERABLES Final Result [facility] [place] [address] * Vitamin B12 (04/11/2024 10:31 AM CDT) Vitamin B12 391 230 - 1,250 pg/mL Blood 04/11/2024 10:3 1 AM CDT 04/11/2024 12:00 PM CDT us Katharine Hampton MD LAB BLOOD ORDERABLES Final Result Performing Organization Address City/[facility]/ZIP Co de Phone Number [facility] [place] [address] * Folate (04/11/2024 10:31 AM CDT) Folic acid 16.7 >=5.0 ng/mL Blood 04/11/2024 10:3 1 AM CDT 04/11/2024 12:00 PM CDT us Katharine Hampton MD LAB BLOOD ORDERABLES Final Result Performing Organization Address [facility] Co de Phone Number [facility] [place] [address] * Ferritin (04/11/2024 10:31 AM CDT) Pathologist [facility] Ferritin 261 30 - 400 ng/mL Blood 04/11/2024 10:3 1 AM CDT 04/11/2024 12:00 PM CDT us Katharine Hampton MD LAB BLOOD ORDERABLES Final Result Performing Organization Address [facility] Co de Phone Number [facility] [place] [address] * (ABNORMAL) Iron profile w/ IBC (04/11/2024 10:31 AM CDT) Iron 48(L) 50 - 150 mcg/dL TIBC 206(L) 250 - 400 mcg/dL [facility] Transferrin saturation 23 20 - 50 % [facility] Blood 04/11/2024 10:3 1 AM CDT 04/11/2024 12:00 PM CDT us Katharine Hampton MD LAB BLOOD ORDERABLES Final Result [facility] [place] [address] * (ABNORMAL) Comprehensive metabolic panel (04/11/2024 10:31 AM CDT) Sodium 139 135 - 145 mmol/L Comment:Testing performed by : [facility], [address] [place] [phone] Potassium, pl 3.6 3.3 - 4.9 mmol/L [facility] Comment:Testing performed by : [facility], [address] [place] [phone] Chloride 101 97 - 110 mmol/L [facility]ERMICHAEL [facility] Comment:Testing performed by : [facility], [address] [place] [phone] CO2 30 22 - 32 mmol/L [facility] Comment:Testing performed by : [facility], [address] [place] [phone] Anion gap 8 2 - 15 mmol/L [facility] Comment:Testing performed by : [facility], [address] [place] [phone] BUN 21 6 - 25 mg/dL [facility] Comment:Testing performed by : [facility], [address] [place] [phone] Creatinine 0.63(L) 0.80 - 1.30 mg/dL [facility] Comment:Testing performed by : [address] [phone] Glucose 103 70 - 199 mg/dL [facility] Comment: Interpretive Data Fasting glucose >/= [...] was last revised 2022. Testing performed by: [facility], [address] [place] [phone] Calcium 9.6 8.5 - 10.3 mg/dL [facility] Comment:Testing performed by : [facility], [address] [place] [phone] Bilirubin, total 0.3 0.1 - 1.2 mg/dL [facility] Comment:Testing performed by : [facility], [address] [place] [phone] Protein, pl 7.4 6.5 - 8.5 g/dL [facility] Comment:Testing performed by : [facility], [address] [place] [phone] Albumin 4.1 3.5 - 5.0 g/dL [facility] Comment:Testing performed by : [facility], [address] [place] [phone] Alk phos 93 40 - 130 Units/L [facility] Comment:Testing performed by : [facility], [address] [place] [phone] ALT 13 7 - 55 Units/L [facility] Comment:Testing performed by : [facility], [address] [place] [phone] AST 14 10 - 50 Units/L [facility] Comment:Testing performed by : [facility], [address] [place] [phone] Blood 04/11/2024 10:3 1 AM CDT 04/11/2024 10:33 AM CDT us Katharine Hampton MD LAB BLOOD ORDERABLES Final Result [facility] [place] [address] * (ABNORMAL) CBC with auto differential (04/11/2024 10:31 AM CDT) WBC 5.8 3.8 - 9.8 K/cumm Comment:Testing performed by : [facility], [address] [place] [phone] Hgb 12.0(L) 13.8 - 17.2 g/dL [facility] Comment:Testing performed by : [facility], [address] [place], [place] [phone] Hct 35.8(L) 40.7 - 50.3 % [facility] Comment:Testing performed by : [facility], [address] [place], [place] [id number] Plt 213 140 - 440 K/cumm [facility] Comment:Testing performed by : [facility], [address] [place], [place] [id number] MPV 7.7 6.8 - 10.4 fL [facility] Comment:Testing performed by : [place] [address] RBC 3.95(L) 4.50 - 5.70 M/cumm [facility] Comment:Testing performed by : [place] [address] MCV 90.5 80.0 - 97.6 fL [facility] Comment:Testing performed by : [facility], [address] [place], [place] [id number] MCH 30.5 26.7 - 33.7 pg [facility] Comment:Testing performed by : [place] [phone] MCHC 33.7 32.7 - 35.5 g/dL C[facility] Comment:Testing performed by : [place] [phone] RDW CV 16.6(H) 11.8 - 14.6 % [facility] Comment:Testing performed by : [facility], [address] [place], [place] [id number] NRBC abs 0.00 0.00 - 0.01 K/cumm C[facility]ER [facility] Comment:Testing performed by : [place] [phone] Blood 04/11/2024 10:3 1 AM CDT 04/11/2024 10:33 AM CDT Katharine Hampton MD LAB BLOOD ORDERABLES Final Result [facility] [place] [address] documented in this encounter Visit Diagnoses Diagnosis Pulmonary embolism, unspecified chronicity, unspecified pulmonary embolism type, unspecified whether acute cor pulmonale present (HCC) Lower extremity edema Edema documented in this encounter Care Teams Division Order Technician Relationship Specialty Start Date End Date Rl Medina DO [address] [place] [address] PCP - General 08/09/17 05/25/24 documented as of this encounter
--- OUTSIDE RECORDS SUMMARY | 2024-11-05 22:56 | XMS_ITS | Encounter Summary ---
Author Organization [facility] Healthcare Address [address] [place] [address] Care Team Providers Care Parts Counter Salesperson Name Role Phone No, Physician Primary Care Provider [phone] Reason for Visit * Auth/Cert (Routine) Specialty Diagnoses / Procedures Referred By Contac t Referred To Contact Diagnoses Nephrolithiasis Nephrolithiasis [N20.0] Procedures LA CYSTOURETHROSCOPY CYSTOSCOPY REMOVAL STENT - URETERAL EXCHANGE STENT - URETERAL Referral ID Status Reason Start Date Expiration Date Visits Re quested Visits Authorized [id number] 1 1 Encounter Details Date Type Department Care Team (Late st Contact Info) Description 06/06/2024 9:27 AM CDT Anesthesia Event [facility] Operating Room [address] [place] [address] Galina Pruitt MD [address] [facility] [address] [place] [address] Linda Thompson NP [address] [facility] [address] [phone] [place] [address] Anesthesia Record Procedure Summary Procedure Name Responsible [...] CRNA 06/06/24 1021 by Kaiser Adair CRNA Peripheral IV Placement Date: 06/06/24; Placement [...] = 0.6 oz pu re alcohol) social [facility] Utilities Answer Date Recorded In the past 12 months has [facility], [employer], or water [employer] threatened to shut off services in your [...] on file 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 Gender Identity Not on file Sexual Orientation Not on file 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 Not on file Not on file documented as of this encounter OR Notes * Anesthesia Postprocedure Evaluation - Galina Pruitt MD - 06/06/2024 11:09 AM CDT Patient: Hira Evans Procedure Summary Date: 06/06/24 Room / Location: [facility] OR POD 1 ROOM 325 / [facility] OR POD 1 Anesthesia Start: 926 Anesthesia [...] Supervising provider: Galina Pruitt MD Placed by: TEST DESKMAN: Kaiser Adair CRNA Emergent airway documentation: Risks [...] Evaluation type/location: TPAP from [facility] Planned procedure site: [facility] PVT OR (Pod 1) Date: 06/02/24 NOTE: [...] on Xarelto. Spoke with Glenna MACKEY at [facility] Pt requires Pia lift d/t LE Paralysis [...] CHEST CT 04/11/2024- Multivessel coronary artery disease.); RI ; CABG ;atrial fibrillation; pacemaker/ICD; negative for [...] 04/11/2024) Pertinent negatives: liver disease Comments: F/b [facility] Hematology Gastrointestinal + GERD - on [...] in a spinal injury cord unit at [facility] Given his epidural hematoma, he had an IVC filter placed November 09, 2023. 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 He has had no complications on anticoagulant therapy since resuming February 2024. Has since seen [facility] Heme 04/11/2024- and underwent BLE US 04/11 [...] Please call the CPAP chart room clinician [phone]) to revisit risk assessment, with any questions, [...] significant findings Patient instructions were axed to [facility] Spoke with NARENDRA Manzanares.# [phone] [facility] Complete Preoperative evaluation performed by Linda Thompson NP on 06/02/24 at 11:03 AM . 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 Med list scanned into media Taking? [...] taking differently: Take 1 tablet by mouth lumber cutter before breakfast tamsulosin (FLOMAX) 0.4 mg extended [...] Procedure Name Priority Date/Time Associated Diagnosis Comments LA AN PROCEDURE PLACEHOLDER Routine 06/06/2024 9:51 AM CDT LA AN ELECTIVE SUPRAGLOTTIC AIRWAY Routine 06/06/2024 9:51 AM CDT documented in this encounter Results * LA AN ELECTIVE SUPRAGLOTTIC AIRWAY, LA AN PROCEDURE PLACEHOLDER (06/06/2024 9:51 AM CDT) Narrative Kaiser Adair CRNA - 06/06/2024 9:51 AM CDT Kaiser Adair CRNA ? 06/06/2024 ??9:51 AM Airway Patient location: OR Urgency: elective Indications for airway management: anesthesia Difficult airway: no Staff: Supervising provider: Galina Pruitt MD Placed by: TEST DESKMAN: Kaiser Adair CRNA Emergent airway documentation: Risks [...] mg documented in this encounter Care Teams Parts Counter Salesperson Relationship Specialty Start Date End Date No, Physician PCP - General 05/26/24 documented as of this encounter
--- OUTSIDE RECORDS SUMMARY | 2024-11-05 22:56 | XMS_ITS | Encounter Summary ---
Author Organization [facility] Healthcare Address [address] [place] [address] Care Team Providers Care Warp Hand Name Role Phone No, Physician Primary Care Provider Reason for Referral * Diagnostic Imaging (Routine) - Closed Specialty Diagnoses / Procedures Referred By Manisha gale Referred To Contact Diagnoses Nephrolithiasis Procedures US Kidney Complete Temo Mcintosh MD [address] [facility] [place] [address] Phone: tel: fax: [address] [phone] Referral ID Status Reason Start Date Expiration Date Visits Re quested Visits Authorized [id number] Closed 06/06/2024 07/06/2025 1 1 Reason for Visit * Auth/Cert (Routine) Specialty Diagnoses / Procedures Referred By Manisha gale Referred To Contact Diagnoses Nephrolithiasis Nephrolithiasis [N20.0] Procedures WI CYSTOURETHROSCOPY CYSTOSCOPY REMOVAL STENT - URETERAL EXCHANGE STENT - URETERAL Referral ID Status Reason Start Date Expiration Date Visits Re quested Visits Authorized [id number] 1 1 Encounter Details Date Type Department Care Team (Latest Contact Info) Description 06/06/2024 7:59 AM CDT - 06/06/2024 12:20 PM CDT Hospital Encounter [facility] Operating Room [address] [place] [phone] Temo Mcintosh MD [address] [place] [address] Nephrolithiasis (Primary Dx) Discharge Disposition: Discharge to home or self care Social History Tobacco Use Types Packs/Day Years Used Date Smoking Tobacco: Former Cigarettes 1 11 1 969 - 1979 Passive Smoke Exposure: Never Smokeless Tobacco: Never Alcohol Use Standard Drinks/Week Comments Yes 14 (1 standard drink = 0.6 oz pu re alcohol) social [facility] Utilities Answer Date Recorded In the past 12 months has [employer], gas, oil, or water [employer] threatened to shut off services in your [...] on file 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 Medications: You may take nfyb-ahm-hhocmrm stool softener to prevent constipation. Take all [...] them in 2-3 business days, please call [phone] to schedule your appointment. * Attachments The following attachments cannot be sent through Care Everywhere. * [facility] PATHWAY TO EXCELLENT CARE AFTER SURGERY [...] ound healing Take 1 tablet by mouth meter repairer helper before breakfast ondansetron ODT (ZOFRAN-ODT) 4 mg [...] 1 tablet (20 mEq total) by mouth meter repairer helper before breakfast 4 senna-docusate (PERICOLACE) 8.6-50 mg [...] Preoperative Evaluation Record Evaluation type/location: TPAP from [facility] Planned procedure site: [facility] PVT OR (Pod 1) Date: 06/02/24 [...] on Xarelto. Spoke with Glenna MACKEY at [place] Pt requires Pia lift d/t LE Paralysis [...] CHEST CT 04/11/2024- Multivessel coronary artery disease.); [place] ; CABG ;atrial fibrillation; pacemaker/ICD; negative for [...] 04/11/2024) Pertinent negatives: liver disease Comments: F/b [facility] Hematology Gastrointestinal + GERD - on [...] in a spinal injury cord unit at [facility] Given his epidural hematoma, he had an IVC filter placed November 09, 2023. 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 He has had no complications on anticoagulant therapy since resuming February 2024. Has since seen [facility] 04/11/2024- and underwent BLE US 04/11 [...] Please call the CPAP chart room clinician [phone]) to revisit risk assessment, with any questions, [...] significant findings Patient instructions were axed to [place] Spoke with NARENRDA Manzanares.# [phone] [facility] Complete Preoperative evaluation performed by Linda Thompson NP on 06/02/24 at 11:03 AM . Patient Active Problem List Diagnosis Date Noted Nephrolithiasis 12/25/2023 DVT (deep venous thrombosis) (CMS/HCC) (HCC) 11/29/2023 Anemia 11/29/2023 Paraspinal hematoma 11/29/2023 Hyponatremia 11/29/2023 Elevated transaminase level 11/29/2023 Lower extremity edema 11/29/2023 Scrotal swelling 11/29/2023 Seizure ([facility]) 11/29/2023 Prediabetes 11/29/2023 Kidney stone 11/09/2023 Paralysis of both lower limbs (CMS/HCC) (HCC) 11/07/2023 Pulmonary embolism ([facility]) 10/26/2023 S/P spinal fusion 10/23/2023 Cardiac arrest ([facility]) 10/23/2023 Left perinephric collection, 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 10/15/2023 Ureteral colic 10/13/2023 UTI (urinary tract infection) 10/13/2023 Hydronephrosis with urinary obstruction due to renal calculus 10/12/2023 Lumbar radiculopathy 10/08/2023 Gross hematuria 10/18/2022 Bladder neck obstruction 10/17/2022 Lesion of urinary bladder 10/17/2022 Prostate cancer ([facility]) 10/17/2022 HTN (hypertension) 10/10/2021 Risk factors for obstructive sleep apnea 10/10/2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 Med list scanned into media Taking? Last [...] taking differently: Take 1 tablet by mouth meter repairer helper before breakfast tamsulosin (FLOMAX) 0.4 mg extended [...] the case by atraumatically introducing a 22 Congolese rigid cystoscope. Of note, there was glandular traumatic hypospadias given his chronically indwelling Harris catheter. Upon entry into thebladder we noted intense friability. The indwelling stent could be seen emanating from the left ureteral orifice. There was light oozing from the bladder even with gentle manipulation of the scope. Alongside the indwelling stent, a open-ended 5 Congolese catheter was introduced with the assistance of [...] were no immediate complications. A new 16 Congolese Harris catheter was introduced with 10 cc [...] Preoperative Assessment and Planning CPAP Clinic Location: [facility] The night before your surgery: [...] remove nail coverings, artificial nails and nail hebrew prior to the day of surgery. You should leave your valuables and any jewelry at home. No metal or piercings are allowed in the operating room. You should bring your insurance card, a photo ID (example: Fish Straightener's License) and a method of payment for [...] Chart. If you are having [facility] at [facility], please arrive on the day of [...] Pathway to Excellent Care by the followinglink: [email or web address] How To Prepare Your Skin For Surgery [...] Remove nail coverings, artificial nails and nail hebrew. Place clean linens on your bed the [...] questions, please call the CPAP Staff at [phone], Sunday-Sunday 8am-4:30pm. All patients should read the below section: Information on [facility]: Please view [email or web address] (Patient & Visitor Information) for additional details regarding Advanced Directive forms, AWARE, directions, parking information, lodging, Internet access, dining and more. Information on [facility] or [facility] [place] ([facility]): Please view [email or web address] (Patient and Visitor Information) for parking/directions and more. For MyChart information, to activate account or password recovery, please go to [email or web address] or call [phone] (toll-free: [phone]), Sun- Sunday 8am-5pm. Information for Suicide Prevention: National Suicide Prevention Lifeline (6-356- 706-SNXL (0020)) or call or text 211. Chat resources: [facility].org. Surgery Times: For patients having surgery @ [facility] Medicine or [facility] [place] ([facility]), if your surgeon's office has not notified you of your surgery time by NOON THE BUSINESS DAY BEFORE your surgery, please call [phone] and ask for your surgeon's office Dr. [...] Date: 06/02/24 This [facility] with [facility] There were no vitals filed [...] multivitamin tablet Take 1 tablet by mouth meter repairer helper before breakfast ondansetron ODT (ZOFRAN-ODT) 4 mg [...] 1 tablet (20 mEq total) by mouth meter repairer helper before breakfast senna-docusate (PERICOLACE) 8.6-50 mg Take 1 tablet by mouth nightly (Patient taking differently: Take 1 tablet by mouth meter repairer helper before breakfast) tamsulosin (FLOMAX) 0.4 mg extended [...] Radiopaque Preblend Cement Bone Tobramycin - S0- [id number] - Implanted (Right) Knee Inventory item: [employer] Simplex P Full Dose Radiopaque Preblend Cement Bone [id number] Model/Cat number: [id number] Serial number: 0 Company Truck 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: [place] Lot number: [id number] Device identifier: [id number] Device identifier type: GS1 As of 09/30/2019 Status: Implanted Other - see comments [employer] [id number] Kandace II 15mm Constrain Knee 5-6 Insert Articular Uhmwpe- S0 - [id number] - Implanted (Right) Knee Inventory item: [employer] Kandace Ii 15mm Constrain Knee 5-6 Insert ArticularUhmwpe [id number] Model/Cat number: [id number] Serial number: 0 Company Truck Driver: [employer] Lot number: [id number] As of 09/30/2019 Status: Implanted [employer] [id number] Legion 10mm Screw Knee 6 Wedge Femoral - S0 - [id number] -Implanted (Right) Knee Inventory item: [employer] Legion 10mm Screw Knee 6 Wedge Femoral [id number] Model/Cat number: [id number] Serial number: 0 Company Truck Driver: [employer] Device identifier: [id number] Device identifier type: [facility] As of 09/30/2019 Status: Implanted [employer] [id number] Legion Constrain Knee Right 6 Component Femoral Oxinium - S0 - [id number] - Implanted (Right) Knee Inventory item: [employer] Legion Constrain Knee Right 6 Component Femoral Oxinium [id number] Model/Cat number: [id number] Serial number: 0 Company Truck Driver: [employer] Lot number: [id number] As of 09/30/2019 Status: Implanted [employer] [id number] Legion 5mm Alcon Step Knee Right Medial Left Lateral 5-6 Wedge - S0 - [id number] - Implanted (Right) Knee Inventory item: [employer] Legion 5mm Alcon Step Knee Right Medial Left Lateral5-6 Wedge [id number] Model/Cat number: [id number] Serial number: 0 Company Truck Driver: [employer] Device identifier: [id number] Device identifier type: [facility] As of 09/30/2019 Status: Implanted [employer] [id number] Legion 15mm 160mm Press Fit Knee Stem Femoral - S0 - [id number] - Implanted (Right) Knee Inventory item: [employer] Legion 15mm 160mm Press Fit Knee Stem Femoral [id number] Model/Cat number: [id number] Serial number: 0 Company Truck Driver: [employer] Lot number: [id number] As of 09/30/2019 Status: Implanted [employer] [id number] Legion 10mm Screw Knee 6 Wedge Femoral - S0 - [id number] -Implanted (Right) Knee Inventory item: [employer] Legion 10mm Screw Knee 6 Wedge Femoral [id number] Model/Cat number: [id number] Serial number: 0 Company Truck Driver: [employer] Lot number: [id number] As of 09/30/2019 Status: Implanted [employer] [id number] Legion Revision Knee Right 5 Baseplate Tibial - S0 - [id number] - Implanted (Right) Knee Inventory item: [employer] Legion Revision Knee Right 5 Baseplate Tibial [id number] Model/Cat number: [id number] Serial number: 0 Company Truck Driver: [employer] Lot number: [id number] Device identifier: [id number] Device identifier type: GS1 As of 09/30/2019 Status: Implanted [employer] [id number] Legion 15mm 160mm Press Fit Knee Stem Femoral - S0 - [id number] - Implanted (Right) Knee Inventory item: [employer] Legion 15mm 160mm Press Fit Knee Stem Femoral [id number] Model/Cat number: [id number] Serial number: 0 Company Truck Driver: [employer] Lot number: [id number] Device identifier: [id number] Device identifier type: GS1 As of 09/30/2019 Status: Implanted [employer] 5517-F-501 Triathlon Cruciate Retain Bead Knee Left 5 Component Femoral Pa - Sn/A - [id number] - Implanted (Left) Knee Inventory item: [employer] Triathlon Cruciate Retain Bead Knee Left 5 Component Femoral Pa 5517-F-501 Model/Cat number: [id number] Serial number: N/A Company Truck Driver: [employer] Lot number: [id number] Device identifier: [id number] Device identifier type: GS1 As of 10/17/2021 Status: Implanted [employer] 5536-B-600 Triathlon Knee 6 Baseplate Tibial Tritanium - Sn/A - [id number] - Implanted (Left) Knee Inventory item: [employer] Triathlon Knee 6 Baseplate Tibial Tritanium 5536-B-600 Model/Cat number: [id number] Serial number: N/A Company Truck Driver: [employer] Lot number: [id number] Device identifier: [id number] Device identifier type: GS1 As of 10/17/2021 Status: Implanted [employer] 6795-V-572-E Insert Tibial Triathlon 6 H10mm Knee Bearing Condylar Stabilize Sterile - Sn/A - [id number] - Implanted (Left) Knee Inventory item: [employer] Insert Tibial Triathlon 6 H10mm Knee Bearing Condylar Stabilize Sterile 8595-E-809-E Model/Cat number: [id number] Serial number: N/A Company Truck Driver: [employer] Lot number: [id number] Device identifier: [id number] Device identifier type: GS1 As of 10/17/2021 Status: Implanted Stent [employer] [id number] 6fr 26cm 145cm Radiopaque Positioner Filiform Flexible Tip - [id number] - Implanted (Left) Ureter Inventory item: [employer] [id number] 6fr 26cm 145cm Radiopaque Positioner Filiform Flexible Tip Model/Cat number: [id number] Company Truck Driver: [employer] Lot number: [id number] Device identifier: [id number] Device identifier type: GS1 As of 02/27/2024 Status: Implanted Type Not Specified [employer] 6197-9-010 Simplex P Full Dose Radiopaque Preblend Cement Bone Tobramycin - [id number] - Implanted (Right) Knee Inventory item: [employer] Simplex P Full Dose Radiopaque Preblend Cement Bone Veqrakvjwt0807-4-943 Model/Cat number: [id number] Company Truck Driver: [employer] Device identifier: [id number] Device identifier type: GS1 As of 09/30/2019 Status: Implanted [employer] Crushed Chip Frozen Graft 30ml Bone Cancellous [id number] - [id number] - Implanted Spine Lumbar Inventory item: [employer] Crushed Chip Frozen Graft 30ml Bone Cancellous [id number] Model/Cat number: [id number] Company Truck Driver: [employer] Lot number: [id number] As of 10/23/2023 Status: Implanted [employer] Allograft Bone Putty 2.5cc - [id number] - Implanted Spine Lumbar Inventory item: [employer] Allograft Bone Putty 2.5CC Model/Cat number: [id number] Company Truck Driver: [employer] Lot number: [id number] Device identifier: [id number] Device identifier type: GS1 As of 10/23/2023 Status: Implanted [employer] Creo Od7.5 Mm L55 Mm Thread Polyaxial Spine Screw Bone Titanium 5146.1757 - [id number] - Implanted Spine Lumbar Inventory item: [employer] Creo Od7.5 Mm L55 Mm Thread Polyaxial Spine Screw Bone Titanium 5146.1757 Model/Cat number: [id number] Company Truck Driver: [employer] As of 10/23/2023 Status: Implanted [employer] Creo Od7.5 Mm L50 Mm Thread Polyaxial Spine Screw Bone Titanium 5146.1752 - [id number] - Implanted Spine Lumbar Inventory item: [employer] Creo Od7.5 Mm L50 Mm Thread Polyaxial Spine Screw Bone Titanium 5146.1752 Model/Cat number: [id number] Company Truck Driver: [employer] As of 10/23/2023 Status: Implanted [employer] Creo Thread Spinal Cap Locking Nonsterile 1119.0010 - [id number] - Implanted Spine Lumbar Inventory item: [employer] Creo Thread Spinal Cap Locking Nonsterile 1119.0010 Model/Cat number: [id number] Company Truck Driver: [employer] As of 10/23/2023 Status: Implanted [employer] Implant Spinal Sable 19q28gd 7-14mm 15 Deg 1172.2121s - [id number] - Implanted Spine Lumbar Inventory item: [employer] Implant Spinal Sable [id number] 7-14mm 15 Deg 1172.2121S Model/Cat number: [id number] Company Truck Driver: [employer] As of 10/23/2023 Status: Implanted [employer] Creo 5.5mm 45mm Curve Daniel Spinal Titanium 1119.7045 - [id number] - Implanted Spine Lumbar Inventory item: [employer] Creo 5.5mm 45mm Curve Daniel Spinal Titanium 1119.7045 Model/Cat number: [id number] Company Truck Driver: [employer] As of 10/23/2023 Status: Implanted [employer] Rex Arevalo Navalign 30mm 7fr 50mm 65cm Introducer Sheath [id number] - [id number] -Implanted Inventory item: [employer] Rex Melendezip Navalign 30mm 7fr 50mm 65cm Introducer Sheath [id number]/Cat number: [id number] Company Truck Driver: [employer] Lot number: [id number] As of 11/09/2023 Status: Implanted SKIN Wound [...] Ear: Functional Discharge Planning Type of Residence: jail Care Facility Name: [facility] Living Arrangements: Other (Comment) (Assisted Living) Support Systems: Spouse/significant other, Home care staff Patient expects to be discharged to:: 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 Temo Mcintosh MD [facility] US PROCEDURES Final Result * FL Fluoroscopy < 1 Hour (06/06/2024 10:22 AM CDT) Narrative [facility] - 06/06/2024 10:22 AM CDT The images from this study are not interpreted by Radiology. ??Please refer to the physician's procedure / OR operative note. Temo Mcintosh MD [facility] FLUOROSCOPY PROCEDUR ES Final Result [facility] documented [...] 12.5 mg tablet Therapy completed 01/21/2024 06/02/2024 cnistswy-rvtycihiv-rpsor [facility] 7-7-1.5 gram powder in packetIndications:wound Take 1 [...] 06/06/2024 documented in this encounter Care Teams Warp Hand Relationship Specialty Start Date End Date No, Physician PCP - General 05/26/24 documented as of this encounter
--- OUTSIDE RECORDS SUMMARY | 2024-11-05 22:56 | XMS_ITS | Encounter Summary ---
Author Organization [facility] Address [address] [place] [address] Care Team Providers Care Social Media Marketing Analyst Name Role Phone Rl Medina DO Primary Care Provider Encounter Details Date Type Department Care Team (Late st Contact Info) Description 04/11/2024 Telephone Radiology [address] [place] [address] Macy Fernando RN Social History Tobacco Use Types Packs/Day Years Used Date Smoking Tobacco: Former Cigarettes 1 11 1 969 - 1979 Passive Smoke Exposure: Never Smokeless Tobacco: Never Alcohol Use Standard Drinks/Week Comments Yes 14 (1 standard drink = 0.6 oz pu re alcohol) social [facility] Utilities Answer Date Recorded In the past 12 months has [employer] electric, gas, oil, or water company threatened [...] on file 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 Vu's office for IVC filter retrieval. Referral forwarded to attendings to review. documented in this encounter Plan of Treatment Not on file documented as of this encounter Visit Diagnoses Not on filedocumented in this encounter Care Teams Social Media Marketing Analyst Relationship Specialty Start Date End Date Rl Medina DO [address] [place] [address] PCP - General 08/09/17 05/25/24 documented as of this encounter
--- OUTSIDE RECORDS SUMMARY | 2024-11-05 22:56 | XMS_ITS | Encounter Summary ---
Author Organization [facility] Address [address] [place] [address] Phone Care Team Providers Care Associate Programmer Name Role Phone Rl Medina DO Primary Care Provider [phone] Reason for Visit * Consultation (Routine) - Closed Specialty Diagnoses / Procedures Referred By Manisha gale Referred To Contact Hematology Diagnoses Hospital discharge follow-up Rae Weller NP [address] [place] [address] Phone: tel: fax: Katharine Hampton MD [address] [place] [address] Phone: tel: fax: Referral ID Status Reason Start Date Expiration Date V isits Requested Visits Authorized [id number] Closed Specialty Services Required 11/16/2023 11/04/2024 99 99 Encounter Details Date Type Department Care Team (Late st Contact Info) Description 04/11/2024 10:00 AM CDT Lab [facility] Oncology [facility] 7th [place] [address] [place] [phone] Social History Tobacco Use Types Packs/Day Years [...] on file 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 Gender Identity Not on file Sexual Orientation Not on file 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
--- OUTSIDE RECORDS SUMMARY | 2024-11-05 22:56 | XMS_ITS | Encounter Summary ---
Author Organization [facility] Healthcare Address [address] [place] [address] Care Team Providers Care Classified Copy Control Clerk Name Role Phone Rl Medina DO Primary Care Provider Encounter Details Date Type Department Care Team (Late st Contact Info) Description 05/07/2024 Telephone Radiology [address] [place] [address] Macy Fernando RN Social History Tobacco Use Types Packs/Day Years Used Date Smoking Tobacco: Former Cigarettes 1 11 1 969 - 1979 Passive Smoke Exposure: Never Smokeless Tobacco: Never Alcohol Use Standard Drinks/Week Comments Yes 14 (1 standard drink = 0.6 oz pu re alcohol) social [facility] Utilities Answer Date Recorded In the past 12 months has [employer] electric, gas, oil, or water company threatened [...] on file 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
--- OUTSIDE RECORDS SUMMARY | 2024-11-05 22:56 | XMS_ITS | Encounter Summary ---
Author Organization [facility] Healthcare Address [address] [place] [address] Care Team Providers Care Cook Pie Name Role Phone No, Physician Primary Care Provider Reason for Visit * Auth/Cert (Routine) Specialty Diagnoses / Procedures Referred By Contac t Referred To Contact Diagnoses Nephrolithiasis Nephrolithiasis [N20.0] Procedures MA CYSTOURETHROSCOPY CYSTOSCOPY REMOVAL STENT - URETERAL EXCHANGE STENT - URETERAL Referral ID Status Reason Start Date Expiration Date Visits Re quested Visits Authorized [id number] 1 1 Encounter Details Date Type Department Care Team (Late st Contact Info) Description 06/06/2024 10:30 AM CDT - 06/06/2024 12:00 PM CDT Surgery [facility] Operating Room [address] [place] [address] Temo Mcintosh MD [address] [address] CYSTOSCOPY Surgery Details Date/Time Status Location OR [...] 0.6 oz pu re alcohol) social [facility] Utilities Answer Date Recorded [...] attend chur ch or sabianist services? 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 Medications: You may take lwms-dzc-cdlyhza stool softener to prevent constipation. Take all [...] them in 2-3 business days, please call [phone] to schedule your appointment. * Attachments The following attachments cannot be sent through Care Everywhere. * [facility] PATHWAY TO EXCELLENT CARE AFTER SURGERY documented [...] ound healing Take 1 tablet by mouth complaint investigations officer before breakfast ondansetron ODT (ZOFRAN-ODT) 4 mg [...] 1 tablet (20 mEq total) by mouth complaint investigations officer before breakfast 4 senna-docusate (PERICOLACE) 8.6-50 mg [...] Preoperative Evaluation Record Evaluation type/location: TPAP from [facility] Planned procedure site: [facility] PVT OR (Pod 1) Date: [...] on Xarelto. Spoke with Glenna MACKEY at [facility] Pt requires Pia lift d/t LE Paralysis [...] CHEST CT 04/11/2024- Multivessel coronary artery disease.); [place] ; CABG ;atrial fibrillation; pacemaker/ICD; negative for [...] 04/11/2024) Pertinent negatives: liver disease Comments: F/b [facility] Hematology Gastrointestinal + GERD - [...] in a spinal injury cord unit at [facility] Given his epidural hematoma, he had an IVC filter placed November 09, 2023. 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 He has had no complications on anticoagulant therapy since resuming February 2024. Has since seen [facility] Heme 04/11/2024- and underwent BLE [...] Please call the CPAP chart room clinician ([phone]) to revisit risk assessment, with any questions, [...] significant findings Patient instructions were axed to [facility] Spoke with NARENDRA Manzanares.# [phone] [facility] Complete Preoperative evaluation performed by [...] (CMS/HCC) (HCC) 11/07/2023 Pulmonary embolism ([facility]) 10/26/2023 S/P spinal fusion 10/23/2023 Cardiac arrest (HCC) 10/23/2023 Left perinephric collection, 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 10/15/2023 Ureteral colic 10/13/2023 UTI (urinary tract infection) 10/13/2023 Hydronephrosis with urinary obstruction due to renal calculus 10/12/2023 Lumbar radiculopathy 10/08/2023 Gross hematuria 10/18/2022 Bladder neck obstruction 10/17/2022 Lesion of urinary bladder 10/17/2022 Prostate cancer ([facility]) 10/17/2022 HTN (hypertension) 10/10/2021 Risk factors for obstructive sleep apnea 10/10/2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 Med list scanned into media Taking? Last [...] taking differently: Take 1 tablet by mouth complaint investigations officer before breakfast tamsulosin (FLOMAX) 0.4 mg extended [...] the case by atraumatically introducing a 22 Belgian rigid cystoscope. Of note, there was glandular traumatic hypospadias given his chronically indwelling Harris catheter. Upon entry into thebladder we noted intense friability. The indwelling stent could be seen emanating from the left ureteral orifice. There was light oozing from the bladder even with gentle manipulation of the scope. Alongside the indwelling stent, a open-ended 5 Belgian catheter was introduced with the assistance of [...] were no immediate complications. A new 16 Belgian Harris catheter was introduced with 10 cc [...] Preoperative Assessment and Planning CPAP Clinic Location: [facility] The night before your surgery: [...] remove nail coverings, artificial nails and nail gibraltarian prior to the day of surgery. You should leave your valuables and any jewelry at home. No metal or piercings are allowed in the operating room. You should bring your insurance card, a photo ID (example: Anesthesiologist Assistant's License) and a method of payment for [...] you are having surgery at [facility], please arrive on the day of surgery [...] to [facility] by the followinglink: [email or web address] How To Prepare Your Skin [...] Remove nail coverings, artificial nails and nail gibraltarian. Place clean linens on your bed the [...] questions, please call the CPAP Staff at [phone], Sunday-Sunday 8am-4:30pm. All patients should read the below section: Information on [facility]: Please view [email or web address] (Patient & Visitor Information) for additional details regarding Advanced Directive forms, AWARE, directions, parking information, lodging, Internet access, dining and more. Information on [facility] or [facility] [place] ([facility]): Please view [email or web address] (Patient and Visitor Information) for parking/directions and more. For MyChart information, to activate account or password recovery, please go to [email or web address] or call [phone] (toll-free: [phone]), Sun- Sunday 8am-5pm. Information for Suicide Prevention: National Suicide Prevention Lifeline (9-670- 866-BNYQ (5931)) or call or text 297. Right Media resources: [employer]uan. Surgery Times: For patients having surgery @ [facility] or [facility] ([facility]), if your surgeon's office has not notified you of your surgery time by NOON THE BUSINESS DAY BEFORE your surgery, please call [phone] and ask for your surgeon's office Dr. Mcintosh [facility] for Preoperative Assessment [facility] Planning ([facility]) does not provide arrival times for the day of surgery or provide the duration of surgery. This information is provided by your surgeon'soffice or by the center where you are having surgery. We appreciate your understanding. * Perioperative Nursing Note - Chino Ludiwg RN - 06/02/2024 8:48 AM CDT [facility] for Preoperative Assessment [facility] Planning Perioperative Nursing Note Telephone Preoperative Evaluation ([facility]) - TELEPHONE ONLY, NO PHYSICAL EXAM Date: 06/02/24 This assessment was completed with Long-Term Care Facility There were no vitals filed [...] multivitamin tablet Take 1 tablet by mouth complaint investigations officer before breakfast ondansetron ODT (ZOFRAN-ODT) 4 mg [...] 1 tablet (20 mEq total) by mouth complaint investigations officer before breakfast senna-docusate (PERICOLACE) 8.6-50 mg Take 1 tablet by mouth nightly (Patient taking differently: Take 1 tablet by mouth complaint investigations officer before breakfast) tamsulosin (FLOMAX) 0.4 mg extended [...] Radiopaque Preblend Cement Bone Tobramycin - S0- [id number] - Implanted (Right) Knee Inventory item: [employer] Simplex P Full Dose Radiopaque Preblend Cement Bone Gudwpykyep7466-4-991 Model/Cat number: [id number] Serial number: 0 Loin Trimmer: Gorshs Lot number: [id number] Device identifier: [id number] Device identifier type: GS1 As of 09/30/2019 Status: Implanted Other - see comments [employer]hew[employer]Rich[employer]Ortho [id number] Kandace II 15mm Constrain Knee 5-6 Insert Articular Uhmwpe- S0 - [id number] - Implanted (Right) Knee Inventory item: [employer] NE[employer]HEW[employer]RICHCO/ORTHO Kandace Ii 15mm Constrain Knee 5-6 Insert ArticularUhmwpe [id number] Model/Cat number: [id number] Serial number: 0 Loin Trimmer: [employer]Ortho Lot number: [id number] As of 09/30/2019 Status: Implanted [employer]Rich[employer]/Ortho [id number] Legion 10mm Screw Knee 6 Wedge Femoral - S0 - [id number] -Implanted (Right) Knee Inventory item: [employer]/RICHCO/ORTHO Legion 10mm Screw Knee 6 Wedge Femoral [id number] Model/Cat number: [id number] Serial number: 0 Loin Trimmer: [employer]Ortho Device identifier: [id number] Device identifier type: [facility] As of 09/30/2019 Status: Implanted [employer]Richco/Ortho [id number] Legion Constrain Knee Right 6 Component Femoral Oxinium - S0 - [id number] - Implanted (Right) Knee Inventory item: [employer]/RICHCO/ORTHO Legion Constrain Knee Right 6 Component Femoral Oxinium [id number] Model/Cat number: [id number] Serial number: 0 Loin Trimmer: [employer]Ortho Lot number: [id number] As of 09/30/2019 Status: Implanted [employer]Rich[employer]/Ortho [id number] Legion 5mm Alcon Step Knee Right Medial Left Lateral 5-6 Wedge - S0 - [id number] - Implanted (Right) Knee Inventory item: [employer]RICHCO/ORTHO Legion 5mm Alcon Step Knee Right Medial Left Lateral5-6 Wedge [id number] Model/Cat number: [id number] Serial number: 0 Loin Trimmer: [employer]Rich[employer]/Ortho Device identifier: [id number] Device identifier type: [facility] As of 09/30/2019 Status: Implanted [employer]Richco/Ortho [id number] Legion 15mm 160mm Press Fit Knee Stem Femoral - S0 - [id number] - Implanted (Right) Knee Inventory item: [employer]RICHCO/ORTHO Legion 15mm 160mm Press Fit Knee Stem Femoral [id number] Model/Cat number: [id number] Serial number: 0 Loin Trimmer: [employer]Ortho Lot number: [id number] As of 09/30/2019 Status: Implanted [employer]Rich[employer]/Ortho [id number] Legion 10mm Screw Knee 6 Wedge Femoral - S0 - [id number] -Implanted (Right) Knee Inventory item: [employer]/RICHCO/ORTHO Legion 10mm Screw Knee 6 Wedge Femoral [id number] Model/Cat number: [id number] Serial number: 0 Loin Trimmer: [employer]Ortho Lot number: [id number] As of 09/30/2019 Status: Implanted [employer]Richco/Ortho [id number] Legion Revision Knee Right 5 Baseplate Tibial - S0 - [id number] - Implanted (Right) Knee Inventory item: [employer]/RICHCO/ORTHO Legion Revision Knee Right 5 Baseplate Tibial [id number] Model/Cat number: [id number] Serial number: 0 Loin Trimmer: [employer]Rich[employer]/Ortho Lot number: [id number] Device identifier: [id number] Device identifier type: [facility] As of 09/30/2019 Status: Implanted [employer]Richco/Ortho [id number] Legion 15mm 160mm Press Fit Knee Stem Femoral - S0 - [id number] - Implanted (Right) Knee Inventory item: [employer]/RICHCO/ORTHO Legion 15mm 160mm Press Fit Knee Stem Femoral [id number] Model/Cat number: [id number] Serial number: 0 Loin Trimmer: [employer]Richco/Ortho Lot number: [id number] Device identifier: [id number] Device identifier type: [facility] As of 09/30/2019 Status: Implanted [employer] 5517-F-501 Triathlon Cruciate Retain Bead Knee Left 5 Component Femoral Pa - Sn/A - [id number] - Implanted (Left) Knee Inventory item: [employer] Triathlon Cruciate Retain Bead Knee Left 5 Component Femoral Pa 5517-F-501 Model/Cat number: [id number] Serial number: N/A Loin Trimmer: [employer] Lot number: [id number] Device identifier: [id number] Device identifier type: GS1 As of 10/17/2021 Status: Implanted [employer] 5536-B-600 Triathlon Knee 6 Baseplate Tibial Tritanium - Sn/A - [id number] - Implanted (Left) Knee Inventory item: [employer] Triathlon Knee 6 Baseplate Tibial Tritanium 5536-B-600 Model/Cat number: [id number] Serial number: N/A Loin Trimmer: [employer] Lot number: [id number] Device identifier: [id number] Device identifier type: GS1 As of 10/17/2021 Status: Implanted [employer] 8707-I-161-E Insert Tibial Triathlon 6 H10mm Knee Bearing Condylar Stabilize Sterile - Sn/A - [id number] - Implanted (Left) Knee Inventory item: [employer] Insert Tibial Triathlon 6 H10mm Knee Bearing Condylar Stabilize Sterile 1842-M-758-E Model/Cat number: [id number] Serial number: N/A Loin Trimmer: [employer] Lot number: [id number] Device identifier: [id number] Device identifier type: GS1 As of 10/17/2021 Status: Implanted Stent [employer] [id number] 6fr 26cm 145cm Radiopaque Positioner Filiform Flexible Tip - [id number] - Implanted (Left) Ureter Inventory item: [employer] [id number] 6fr 26cm 145cm Radiopaque Positioner Filiform Flexible Tip Model/Cat number: [id number] Loin Trimmer: H[employer]ING[employer] Inc Lot number: [id number] Device identifier: [id number] Device identifier type: GS1 As of 02/27/2024 Status: Implanted Type Not Specified [employer] 6197-9-010 Simplex P Full Dose Radiopaque Preblend Cement Bone Tobramycin - [id number] - Implanted (Right) Knee Inventory item: [employer] Simplex P Full Dose Radiopaque Preblend Cement Bone Dqrsepcbcg4969-2-195 Model/Cat number: [id number] Loin Trimmer: [employer] Device identifier: [id number] Device identifier type: GS1 As of 09/30/2019 Status: Implanted Allosource Crushed Chip Frozen Graft 30ml Bone Cancellous [id number] - [id number] - Implanted Spine Lumbar Inventory item: [employer]OSOURCE Crushed Chip Frozen Graft 30ml Bone Cancellous [id number] Model/Cat number: [id number] Loin Trimmer: Allosource Lot number: [id number] As of 10/23/2023 Status: Implanted Cer[employer]ics Inc Allograft Bone Putty 2.5cc 700-025 - [id number] - Implanted Spine Lumbar Inventory item: CER[employer] INC Allograft Bone Putty 2.5CC 700-025 Model/Cat number: [id number] Loin Trimmer: meevl Inc Lot number: [id number] Device identifier: [id number] Device identifier type: GS1 As of 10/23/2023 Status: Implanted Gl[employer] Creo Od7.5 Mm L55 Mm Thread Polyaxial Spine Screw Bone Titanium 5146.1757 - [id number] - Implanted Spine Lumbar Inventory item: [employer] Creo Od7.5 Mm L55 Mm Thread Polyaxial Spine Screw Bone Titanium 5146.1757 Model/Cat number: [id number] Loin Trimmer: [employer] As of 10/23/2023 Status: Implanted [employer] Creo Od7.5 Mm L50 Mm Thread Polyaxial Spine Screw Bone Titanium 5146.1752 - [id number] - Implanted Spine Lumbar Inventory item: [employer] Creo Od7.5 Mm L50 Mm Thread Polyaxial Spine Screw Bone Titanium 5146.1752 Model/Cat number: [id number] Loin Trimmer: [employer] As of 10/23/2023 Status: Implanted [employer] Creo Thread Spinal Cap Locking Nonsterile 1119.0010 - [id number] - Implanted Spine Lumbar Inventory item: [employer] Creo Thread Spinal Cap Locking Nonsterile 1119.0010 Model/Cat number: [id number] Loin Trimmer: [employer] As of 10/23/2023 Status: Implanted [employer] Implant Spinal Sable 85h56rl 7-14mm 15 Deg 1172.1s - [id number] - Implanted Spine Lumbar Inventory item: [employer] Implant Spinal Sable [id number] 7-14mm 15 Deg 1172.1S Model/Cat number: [id number]. Loin Trimmer: [employer] As of 10/23/2023 Status: Implanted [employer] Creo 5.5mm 45mm Curve Daniel Spinal Titanium 1119.7045 - [id number] - Implanted Spine Lumbar Inventory item: [employer] Creo 5.5mm 45mm Curve Daniel Spinal Titanium 1119.7045 Model/Cat number: [id number] Loin Trimmer: [employer] As of 10/23/2023 Status: Implanted Nidia Riversalign 30mm 7fr 50mm 65cm Introducer Sheath [id number] - [id number] -Implanted Inventory item: NIDIA Rivresalign 30mm 7fr 50mm 65cm Introducer Sheath [id number]/Cat number: [id number] Loin Trimmer: HEMINGWAY Ondina Fam Lot number: [id number] As of 11/09/2023 Status: Implanted SKIN Wound [...] Ear: Functional Discharge Planning Type of Residence: long-term Care Facility Name: [facility] Living Arrangements: Other (Comment) (Assisted Living) Support Systems: Spouse/significant other, Home care staff Patient expects to be discharged to:: Assisted Living 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
--- OUTSIDE RECORDS SUMMARY | 2024-11-05 22:56 | XMS_ITS | Encounter Summary ---
Author Organization [facility] Address [address] [place] [address] Phone Care Team Providers Care Commercial Driver'S License Driver Name Role Phone No, Physician Primary Care Provider [phone] Encounter Details Date Type Department Care Team (Late st Contact Info) Description 06/12/2024 Telephone [facility] Epilepsy [address] 6th [place] [address] [place] [address] Jose Elias Osorio MD PhD [address] [place] [address] Social History Tobacco Use Types Packs/Day Years Used Date Smoking Tobacco: Former Cigarettes 1 11 969 - 1979 Passive Smoke Exposure: Never Smokeless Tobacco: Never Alcohol Use Standard Drinks/Week Comments Yes 14 (1 standard drink = 0.6 oz pu re alcohol) social [facility] Utilities Answer Date Recorded In the past 12 months has [employer], gas, oil, or water [employer] threatened to shut off services in your [...] How often do you attend chur or anglican services? 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 Left voicemail to provide update. She said that since tapering of LEV he has not had any issues and he has no issues at this time. [phone] documented in this encounter Plan of Treatment Not on file documented as of this encounter Visit Diagnoses Not on filedocumented in this encounter Care Teams Commercial Driver'S License Driver Relationship Specialty Start Date End Date No, Physician PCP - General 05/26/24 documented as of this encounter
--- OUTSIDE RECORDS SUMMARY | 2024-11-05 22:56 | XMS_ITS | Encounter Summary ---
Author Organization [facility] Healthcare Address [address] [place] [address] Care Team Providers Care Association Executive Name Role Phone No, Physician Primary Care Provider [phone] Encounter Details Date Type Department Care Team (Late st Contact Info) Description 06/02/2024 Telephone Radiology [address] [place] [address] Macy Fernando RN Social History Tobacco Use Types Packs/Day Years Used Date Smoking Tobacco: Former Cigarettes 1 11 969 1979 Passive Smoke Exposure: Never Smokeless Tobacco: Never Alcohol Use Standard Drinks/Week Comments Yes 14 (1 standard drink = 0.6 oz pu re alcohol) social C Utilities Answer Date Recorded In the past 12 months has [employer], gas, oil, or water [employer] threatened to shut off services in your [...] on file Legal Sex Male 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 Yes Appt info letter [...] on filedocumented in this encounter Care Teams Association Executive Relationship Specialty Start Date End Date No, Physician PCP - General 05/26/24 documented as of this encounter
--- OUTSIDE RECORDS SUMMARY | 2024-11-05 22:56 | XMS_ITS | Encounter Summary ---
Author Organization [facility] Address [address] [place] [address] Phone Care Team Providers Care Alodize Machine Helper Name Role Phone No, Physician Primary Care Provider [phone] Encounter Details Date Type Department Care Team (Late st Contact Info) Description 06/09/2024 Orders Only [facility] Surgery [address] [place] [address] Temo Mcintosh MD [address] [facility] [place] [address] Nephrolithiasis (Primary Dx) Social History Tobacco Use Types Packs/Day Years Used Date Smoking Tobacco: Former Cigarettes 1 11 1 969 - 1979 Passive Smoke Exposure: Never Smokeless Tobacco: Never Alcohol Use Standard Drinks/Week Comments Yes 14 (1 standard drink = 0.6 oz pu re alcohol) social [facility] Utilities Answer Date Recorded In the past 12 months has [email or web address], gas, oil, or water [employer] threatened to shut off services in your [...] How often do you attend [facility] or episcopal services? 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
--- OUTSIDE RECORDS SUMMARY | 2024-11-05 22:57 | XMS_ITS | Encounter Summary ---
Author Organization [facility] Address [address] [facility] [address] [place] [address] Phone Care Team Providers Care Tennis Ball Coverer Hand Name Role Phone Rl Medina DO Primary Care Provider Reason for Referral * Consultation (Routine) - Canceled Specialty Diagnoses / Procedures Referred By Manisha gale Referred To Contact Vascular Surgery Diagnoses Lower extremity edema Hayder Vu Jr., MD [address] [facility] 6A/6B/12A [place] [address] Phone: tel: fax: Hayder Barron MD [address] [facility] [id number] [place] [address] Phone: tel: fax: Referral ID Status Reason Start Date Expiration Date Visits Requested Visits Authorized [id number] Canceled Specialty Services Required 03/27/2024 04/26/2025 1 1 Question Answer Please select the performing region: [facility] (All Locations) [167] To provider: HAYDER BARRON [[id number]] # of visits: 1 Comments Evaluate and treat for bilateral lower extremity swelling. * Diagnostic Imaging (Routine) - Closed Specialty Diagnoses / Procedures Referred By Manisha gale Referred To Contact Diagnoses S/P laminectomy with spinal fusion Procedures XR Spine Thoracic 2 Views Hayder Vu Jr., MD [address] [facility] [address] [place] [address] Phone: tel: fax: [facility] Radiology [address] [place] [address] [address] [place] [address] Phone: tel: Referral ID Status Reason Start Date Expiration Date Visits Re quested Visits Authorized [id number] Closed 03/18/2024 04/17/2025 1 1 * Diagnostic Imaging (Routine) - Closed Specialty Diagnoses / Procedures Referred By Manisha t Referred To Contact Diagnoses S/P laminectomy with spinal fusion Procedures XR Spine Lumbar 2 or 3 Views Hayder Vu Jr., MD [address] [place] [place] [address] Phone: tel: fax: [facility] Radiology [address] [place] [address] [address] [place] [address] Phone: tel: Referral ID Status Reason Start Date Expiration Date Visits Re quested Visits Authorized [id number] Closed 03/18/2024 04/17/2025 1 1 Reason for Visit * Reason Comments Return Patient Encounter Details Date Type Department Care Team (Late st Contact Info) Description 03/27/2024 10:00 AM CDT Office Visit [facility] Orthopaedic Surgery [address] [place] [address] Medical Office Building [address] [place] [address] Hayder Vu Jr., MD [address] [facility] 6A/6B/12A [place] [address] S/P laminectomy with spinal fusion (Primary Dx); Lower extremity edema Social History Tobacco Use Types Packs/Day Years Used Date Smoking Tobacco: Former Cigarettes 1 11 1 969 - 1979 Passive Smoke Exposure: Never Smokeless Tobacco: Never Alcohol Use Standard Drinks/Week Comments Yes 14 (1 standard drink = 0.6 oz pu re alcohol) social [facility] Utilities Answer Date Recorded In the [...] file 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 Dr. Vu has recommended the following treatment: Referral to Vascular Surgery. Call [phone] to schedule your visit with Dr. Barron. Follow up in 3 months. Please let us know if you have any questions. Kasey Mari MA, ATC Bilingual Research Interviewer to Dr. Hayder Vu Department of Orthopedic Spine Surgery Galina Franco RN, BSN Clinical Nurse Coordinator to Dr. Hayder Vu Department of Orthopedic Spine Surgery documented in this encounter Progress Notes * Hayder uV Jr., MD - 03/27/2024 10:00 AM CDT [...] hematoma and durotomy. He remains at a halfway facility. He has been doing PT 5 [...] post thoracolumbar decompression. He remains in a halfway facility. He is on Xarelto. Treatment Plan [...] with this plan. 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
--- OUTSIDE RECORDS SUMMARY | 2024-11-05 22:57 | XMS_ITS | Encounter Summary ---
Author Organization [facility] Address [address] [place] [address] Care Team Providers Care Structural Rigger Name Role Phone Rl Medina DO Primary Care Provider Reason for Visit * Auth/Cert (Routine) Specialty Diagnoses / Procedures Referred By Contac t Referred To Contact Diagnoses Nephrolithiasis Nephrolithiasis [N20.0] Procedures GA CYSTO/URETERO W/LITHOTRIPSY &INDWELL STENT INSRT URETEROSCOPY LITHOTRIPSY - LASER EXCHANGE STENT - URETERAL Referral ID Status Reason Start Date Expiration Date Visits Re quested Visits Authorized [id number] 1 1 Encounter Details Date Type Department Care Team (Late st Contact Info) Description 02/27/2024 10:10 AM CDT Anesthesia Event [facility] Operating Room 1 [place] [address] Larissa Mathews MD [address] [facility] [address] [place] [address] Krista Mccoy NP [address] [facility] [address] [phone] [place] [address] Anesthesia Record Procedure Summary Procedure Name Responsible [...] oz pu re alcohol) social [facility] Utilities Answer Date Recorded In the past 12 months has [employer], gas, oil, or water [employer] threatened to shut off services in your [...] attend chur ch or orthodox services? 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 Not on file Not on file documented as of this encounter OR Notes * Anesthesia Postprocedure Evaluation - Larissa Mathews MD - 02/27/2024 1:10 PM CDT Patient: Hira Evans Procedure Summary Date: 02/27/24 Room / Location: [facility] OR POD 1 ROOM 323 / [facility] OR POD 1 Anesthesia Start: 1010 Anesthesia [...] Supervising provider: Larissa Mathews MD Placed by: SEMI AUTOMATIC SEWING MACHINE OPERATOR: Olivia Silvestre CRNA Emergent airway documentation: Risks [...] Preoperative Evaluation Record Evaluation type/location: TPAP from [facility] Planned procedure site: [facility] PVT OR (Pod 1) Date: 02/20/24 Anesthesia [...] DVT/PE episodes: 1. Pertinent negatives: CAD ; AL ; CABG ; atrial fibrillation; pacemaker/ICD; negative [...] were provided via telephone and faxed to [facility]. Patient verbalized understanding of DOS instruction as [...] creatinine clearance is 75.1 ml/min. Per the [facility] Perioperative Antithrombotic Toolkit, we recommend discontinuing this medication for 72 hours prior to surgery to minimize the duration of anticoagulation discontinuation. Therapeutic anticoagulation should be resumed postoperatively as soon as possible. Alternative anticoagulation therapies can be used in the interim if acceptable. Discussed with surgeon's office. Please call the [facility] clinic ([phone]) to revisit risk assessment, with any questions, [...] by mouth 2 (two) times a day qgqjkuxt-wtxvhnnlk-xzpuoue HMB 7-7-1.5 gram powder in packet 02/14/2024 [...] taking differently: Take 1 tablet by mouth nut packer before breakfast tamsulosin (FLOMAX) 0.4 mg extended [...] mg tablet acyclovir (ZOVIRAX) 400 mg tablet dhuqhqhk-opmolxnlt-dusmzsn HMB 7-7-1.5 gram powder in packet ascorbic [...] Medication protocol when under care of a SEMI AUTOMATIC SEWING MACHINE OPERATOR Planned anesthesia: General Team communication plan: oral ET tube Induction: Induction: intravenous. Postoperative Plan: Postoperative administration opioids intended. No postoperative mechanical ventilation intended. Patient's planned disposition post procedure is Outpatient. Planned trial extubation. Informed Consent: Discussed plan with SEMI AUTOMATIC SEWING MACHINE OPERATOR. Anesthesia plan and risks discussed with patient. [...] Diagnosis Comments GA AN PROCEDURE PLACEHOLDER Routine 02/27/2024 12:02 PM CDT GA AN ELECTIVE ENDOTRACHEAL AIRWAY Routine 02/27/2024 12:02 PM CDT documented in this encounter Results * GA AN ELECTIVE ENDOTRACHEAL AIRWAY, GA AN PROCEDURE PLACEHOLDER (02/27/2024 12:02 PM CDT) Narrative Olivia Silvestre CRNA - 02/27/2024 12:02 PM CDT Olivia Silvestre CRNA ? 02/27/2024 12:03 PM Airway Patient location: OR Urgency: elective Indications for airway management: anesthesia Difficult airway: no Staff: Supervising provider: Larissa Mathews MD Placed by: SEMI AUTOMATIC SEWING MACHINE OPERATOR: Olivia Silvestre CRNA Emergent airway documentation: Risks [...] 4 documented in this encounter Care Teams Structural Rigger Relationship Specialty Start Date End Date Rl Medina DO [address] [place] [address] PCP - General 08/09/17 05/25/24 documented as of this encounter
--- OUTSIDE RECORDS SUMMARY | 2024-11-05 22:57 | XMS_ITS | Encounter Summary ---
Author Organization [facility] Address [address] [place] [address] Care Team Providers Care Critical Power Technician Name Role Phone Rl Medina DO Primary Care Provider Reason for Referral * Diagnostic Imaging (Routine) - Closed Specialty Diagnoses / Procedures Referred By Contac t Referred To Contact Diagnoses S/P laminectomy with spinal fusion Procedures XR Spine Thoracic 2 Views Marcial Vu Jr., MD [address] [facility] [facility] 6A/6B/[address] [place] [address] Phone: tel: fax: [facility] Radiology [address] [place] [address] Phone: tel: Referral ID Status Reason Start Date Expiration Date Visits Re quested Visits Authorized [id number] Closed 01/04/2024 02/02/2025 1 1 MAKER * Diagnostic Imaging (Routine) - Closed Specialty Diagnoses / Procedures Referred By Contac t Referred To Contact Diagnoses S/P laminectomy with spinal fusion Procedures XR Spine Lumbar 2 or 3 Views Marcial Vu Jr., MD [address] [facility] 6A/6B/[place], [place] [address] Phone: tel: fax: [facility] Radiology [address] [place] [address] Phone: tel: Referral ID Status Reason Start Date Expiration Date Visits Re quested Visits Authorized [id number] Closed 01/04/2024 02/02/2025 1 1 MAKER Reason for Visit * Diagnostic Imaging (Routine) - Closed Specialty Diagnoses / Procedures Referred By Contac t Referred To Contact Diagnoses S/P laminectomy with spinal fusion Procedures XR Spine Lumbar 2 or 3 Views Marcial Vu Jr., MD [address] [facility] /6B/12A [place] [address] Phone: tel: fax: [facility] Radiology [address] [place] [address] [address] [facility] [place] [address] Phone: tel: Referral ID Status Reason Start Date Expiration Date Visits Re quested Visits Authorized [id number] Closed 01/04/2024 02/02/2025 1 1 Encounter Details Date Type Department Care Team (Latest Contact Info) Description 01/07/2024 7:30 AM SLED MAKER - 01/07/2024 11:59 PM SLED MAKER Hospital Encounter [facility] Radiology [address] [place] [address] Suite [facility] [place] [address] S/P laminectomy with spinal fusion Discharge [...] Recorded In the past 12 months has [employer], gas, oil, or water [employer] threatened to shut off services in your [...] on file Legal Sex Male 9:07 PM SLED MAKER Gender Identity Not on file Sexual Orientation Not on file 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 Not [...] :wound healing Take 1 tablet by mouth candy roller before breakfast pantoprazole DR (PROTONIX) 40 mg [...] Read Routine (OP Routine) 01/07/2024 8:23 AM SLED MAKER S/P laminectomy with spinal fusion XR SPINE THORACIC 2 VIEWS Schedule Routine, Read Routine (OP Routine) 01/07/2024 8:23 AM SLED MAKER S/P laminectomy with spinal fusion documented in this encounter Results * XR Spine Thoracic 2 Views (01/07/2024 8:23 AM SLED MAKER) Anatomical Region Laterality Modality Spine N/A Computed Radiogr aphy 01/07/2024 9:23 AM SLED MAKER Impressions 01/07/2024 5:25 PM SLED MAKER Intact L4-L5 posterior spinal instrumented fusion with [...] Justin Choi MD Narrative 01/07/2024 5:25 PM SLED MAKER EXAMINATION: 1. ??XR SPINE THORACIC 2 VIEWS, [...] 2 or 3 Views (01/07/2024 8:23 AM SLED MAKER) Anatomical Region Laterality Modality Spine N/A Computed Radiogr aphy 01/07/2024 9:23 AM SLED MAKER Impressions 01/07/2024 5:25 PM SLED MAKER Intact L4-L5 posterior spinal instrumented fusion with [...] Justin Choi MD Narrative 01/07/2024 5:25 PM SLED MAKER EXAMINATION: 1. ??XR SPINE THORACIC 2 VIEWS, [...] status documented in this encounter Care Teams Critical Power Technician Relationship Specialty Start Date End Date Rl Medina DO [address] [place] [address] PCP - General 08/09/17 05/25/24 documented as of this encounter
--- OUTSIDE RECORDS SUMMARY | 2024-11-05 22:57 | XMS_ITS | Encounter Summary ---
Author Organization [facility] Address [address] [place] [address] Phone Care Team Providers Care Handbook Writer Name Role Phone Rl Medina DO Primary Care Provider Encounter Details Date Type Department Care Team (Late st Contact Info) Description 01/10/2024 Orders Only [facility] Neurosurgery [address] [facility] Medical Office Building [address] [place] [address] Carrie Jerez, CARLA [address] [place], [place] [id number] Subdural hematoma (HCC) (Primary Dx); Seizures (HCC) Social History Tobacco Use Types Packs/Day Years Used Date Smoking Tobacco: Former Cigarettes 1 09 05 969 - 1979 Passive Smoke Exposure: Never Smokeless Tobacco: Never Alcohol Use Standard Drinks/Week Comments Yes 14 (1 standard drink = 0.6 oz pu re alcohol) social [facility] Utilities Answer Date Recorded In the past 12 months has [employer], gas, oil, or water company threatened to [...] on file 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
--- OUTSIDE RECORDS SUMMARY | 2024-11-05 22:57 | XMS_ITS | Encounter Summary ---
Author Organization [facility] Healthcare Address [address] [place] [address] Care Team Providers Care Improvement Nurse Name Role Phone Rl Medina DO Primary Care Provider Reason for Visit * Auth/Cert (Routine) Specialty Diagnoses / Procedures Referred By Contac t Referred To Contact Diagnoses Nephrolithiasis Nephrolithiasis [N20.0] Procedures OR CYSTO/URETERO W/LITHOTRIPSY &INDWELL STENT INSRT URETEROSCOPY LITHOTRIPSY - LASER EXCHANGE STENT - URETERAL Referral ID Status Reason Start Date Expiration Date Visits Re quested Visits Authorized [id number] 1 1 Encounter Details Date Type Department Care Team (Late st Contact Info) Description 02/27/2024 10:40 AM CDT - 02/27/2024 12:40 PM CDT Surgery [facility] Operating Room [address] [place] [address] Temo Mcintosh MD [address] [place] [address] URETEROSCOPY Surgery Details Date/Time Status Location OR Service Patient Class Case Cl ass Case Type Trauma Case? 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 Diet: [place] diet: At first eat a bland diet; [...] Time Provider Department Center 03/18/2024 11:00 AM [facility] N IR 361 [facility] N IR [facility] Main G 03/27/2024 10:00 AM Marcial Vu Jr., MD SPINE BW4 OS 04/08/2024 10:00 AM [facility] S PROCEDURE ROOM [facility] EEG [facility] Main 04/09/2024 11:30 AM [facility] S PROCEDURE ROOM [facility] EEG [facility] Main 04/11/2024 8:20 AM [facility] BCT2 [facility] N CT [facility] Main G 04/11/2024 9:00 AM Katharine [...] Sunday, 8 AM to 5:00 PM: call [phone] and ask for a member of your doctor's team. For urgent matters after 5:00 PM during the week or on weekends or holidays, call [phone] and ask to have the Urology Lawnmower Repair Mechanic Physician paged for you. documented in this [...] ound healing Take 1 tablet by mouth laborer golf course before breakfast ondansetron ODT (ZOFRAN-ODT) 4 mg [...] 1 tablet (20 mEq total) by mouth laborer golf course before breakfast 4 senna-docusate (PERICOLACE) 8.6-50 mg [...] Preoperative Evaluation Record Evaluation type/location: TPAP from [facility] Planned procedure site: [facility] PVT OR (Pod 1) Date: 02/20/24 [...] DVT/PE episodes: 1. Pertinent negatives: CAD ; UT ; CABG ; atrial fibrillation; pacemaker/ICD; negative [...] were provided via telephone and faxed to [facility]. Patient verbalized understanding of DOS instruction as [...] and secure chat with surgeon and POONAM Chowdhuyr in surgeons office. 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 Estimated creatinine clearance is 75.1 ml/min. Per the [facility] Perioperative Antithrombotic Toolkit, we recommend discontinuing this medication for 72 hours prior to surgery to minimize the duration of anticoagulation discontinuation. Therapeutic anticoagulation should be resumed postoperatively as soon as possible. Alternative anticoagulation therapies can be used in the interim if acceptable. Discussed with surgeon's office. Please call the CPAP clinic ([phone]) to revisit risk assessment, with any questions, [...] apnea 10/10/2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CMS/HCC) ([facility]) 08/07/2019 Presence of right [...] by mouth 2 (two) times a day gdtpqppj-gmcctewmx-tcnmthw HMB 7-7-1.5 gram powder in packet 02/14/2024 [...] taking differently: Take 1 tablet by mouth laborer golf course before breakfast tamsulosin (FLOMAX) 0.4 mg extended [...] mg tablet acyclovir (ZOVIRAX) 400 mg tablet bmkcbqzs-qzoosvpal-vlxpkqj HMB 7-7-1.5 gram powder in packet ascorbic [...] Resident - Assisting Anesthesiologist: Larissa Mathews MD MICROGRAPHICS SERVICES SUPERVISOR: Mildred Harrison CRNA; Olivia Silvestre CRNA Polymerization Oven Operator: Honorio Bhakta RN Scrub Relief: Marla Benson RN Scrub: Eula Marroquin RN; Nelly Lo RN STOGY MAKER: Robb Roth DATE OF SURGERY : 02/27/2024 [...] Implant Name Type Inv. Item Serial No. Events Administrative Assistant Lot No. LRB No. Used Action [employer] [id number] 6fr 26cm 145cm Radiopaque Positioner Filiform Flexible Tip - [id number] Stent [employer] [id number] 6fr 26cm 145cm Radiopaque Positioner Filiform Flexible Tip [employer] [id number] Left 1 Implanted [employer] UNIVERSA 6FR 28CM FIRM POSITIONER MONOFILAMENT TETHER STENT [id number] - [id number] Stent [employer] UNIVERSA 6FR 28CM FIRM POSITIONER MONOFILAMENT TETHER STENT [id number] [employer] [id number] Left 1 Explanted Blood/Blood Products Transfused: None [...] Preoperative Assessment and Planning CPAP Clinic Location: [facility] The night before your surgery: * Do [...] Take on day of surgery if needed iekkpnub-xygillovu-rgyjato HMB 7-7-1.5 gram powder in packet Don't [...] Planning Perioperative Nursing Note Telephone Preoperative Evaluation ([facility]) - TELEPHONE ONLY, NO PHYSICAL EXAM Date: 02/14/24 This assessment was completed with the patient's member service representative, [facility] facility . Vitals: 02/14/24 1000 Weight: [...] by mouth 2 (two) times a day gnrocgcn-netghuljr-nbwinft HMB 7-7-1.5 gram powder in packet Take [...] multivitamin tablet Take 1 tablet by mouth laborer golf course before breakfast ondansetron ODT (ZOFRAN-ODT) 4 mg [...] 1 tablet (20 mEq total) by mouth laborer golf course before breakfast senna-docusate (PERICOLACE) 8.6-50 mg Take 1 tablet by mouth nightly (Patient taking differently: Take 1 tablet by mouth laborer golf course before breakfast) Xarelto 15 mg tablet Take 1 tablet (15 mg total) by mouth 2 (two) times a day For 21 days Implants Bone Cement [employer] 6197-9-010 Simplex P Full Dose Radiopaque Preblend Cement Bone Tobramycin - S0- [id number] - Implanted (Right) Knee Inventory item: [employer] Simplex P Full Dose Radiopaque Preblend Cement Bone Zncitrdksz8772-7-935 Model/Cat number: [id number] Serial number: 0 Events Administrative Assistant: [employer] Lot number: [id number] Device identifier: [id number] Device identifier type: GS1 As of 09/30/2019 Status: Implanted Other - see comments [employer] [id number] Kandace II 15mm Constrain Knee 5-6 Insert Articular Uhmwpe- S0 - [id number] - Implanted (Right) Knee Inventory item: [employer]OR[employer]O Kandace Ii 15mm Constrain Knee 5-6 Insert ArticularUhmwpe [id number] Model/Cat number: [id number] Serial number: 0 Events Administrative Assistant: [employer] Lot number: [id number] As of 09/30/2019 Status: Implanted [employer] [id number] Legion 10mm Screw Knee 6 Wedge Femoral - S0 - [id number] -Implanted (Right) Knee Inventory item: [employer]RICH[employer]ORTHO Legion 10mm Screw Knee 6 Wedge Femoral [id number] Model/Cat number: [id number] Serial number: 0 Events Administrative Assistant: [employer] Device identifier: [id number] Device identifier type: [facility] As of 09/30/2019 Status: Implanted [employer]Ortho [id number] Legion Constrain Knee Right 6 Component Femoral Oxinium - S0 - [id number] - Implanted (Right) Knee Inventory item: [employer]ICH[employer]ORTHO Legion Constrain Knee Right 6 Component Femoral [employer] [id number] Model/Cat number: [id number] Serial number: 0 Events Administrative Assistant: [employer] Lot number: [id number] As of 09/30/2019 Status: Implanted [employer]Ortho [id number] Legion 5mm Alcon Step Knee Right Medial Left Lateral 5-6 Wedge - S0 - [id number] - Implanted (Right) Knee Inventory item: [employer]ORTHO Legion 5mm Alcon Step Knee Right Medial Left Lateral5-6 Wedge [id number] Model/Cat number: [id number] Serial number: 0 Events Administrative Assistant: [employer] Device identifier: [id number] Device identifier type: [facility] As of 09/30/2019 Status: Implanted [employer]/Ortho [id number] Legion 15mm 160mm Press Fit Knee Stem Femoral - S0 - [id number] - Implanted (Right) Knee Inventory item: [employer]RICH[employer]ORTHO Legion 15mm 160mm Press Fit Knee Stem Femoral [id number] Model/Cat number: [id number] Serial number: 0 Events Administrative Assistant: [employer] Lot number: [id number] As of 09/30/2019 Status: Implanted [employer]Ortho [id number] Legion 10mm Screw Knee 6 Wedge Femoral - S0 - [id number] -Implanted (Right) Knee Inventory item: [employer]ICH[employer]ORTHO Legion 10mm Screw Knee 6 Wedge Femoral [id number] Model/Cat number: [id number] Serial number: 0 Events Administrative Assistant: [employer] Lot number: [id number] As of 09/30/2019 Status: Implanted [employer]o 86264553 Legion Revision Knee Right 5 Baseplate Tibial - S0 - [id number] - Implanted (Right) Knee Inventory item: [employer]OR[employer] Legion Revision Knee Right 5 Baseplate Tibial [id number] Model/Cat number: [id number] Serial number: 0 Events Administrative Assistant: [employer] Lot number: [id number] Device identifier: [id number] Device identifier type: GS1 As of 09/30/2019 Status: Implanted [employer]o [id number] Legion 15mm 160mm Press Fit Knee Stem Femoral - S0 - [id number] - Implanted (Right) Knee Inventory item: [employer]RICHCO/ORTHO Legion 15mm 160mm Press Fit Knee Stem Femoral [id number] Model/Cat number: [id number] Serial number: 0 Events Administrative Assistant: [employer] Lot number: [id number] Device identifier: [id number] Device identifier type: GS1 As of 09/30/2019 Status: Implanted [facility] 5517-F-501 Triathlon Cruciate Retain Bead Knee Left 5 Component Femoral Pa - Sn/A - [id number] - Implanted (Left) Knee Inventory item: [employer] Triathlon Cruciate Retain Bead Knee Left 5 Component Femoral Pa 5517-F-501 Model/Cat number: [id number] Serial number: N/A Events Administrative Assistant: [facility] Lot number: [id number] Device identifier: [id number] Device identifier type: GS1 As of 10/17/2021 Status: Implanted [employer] 5536-B-600 Triathlon Knee 6 Baseplate Tibial Tritanium - Sn/A - [id number] - Implanted (Left) Knee Inventory item: [employer] Triathlon Knee 6 Baseplate Tibial Tritanium 5536-B-600 Model/Cat number: [id number] Serial number: N/A Events Administrative Assistant: [employer] Lot number: [id number] Device identifier: [id number] Device identifier type: GS1 As of 10/17/2021 Status: Implanted [employer] 4780-C-646-E Insert Tibial Triathlon 6 H10mm Knee Bearing Condylar Stabilize Sterile - Sn/A - [id number] - Implanted (Left) Knee Inventory item: [employer] Insert Tibial Triathlon 6 H10mm Knee Bearing Condylar Stabilize Sterile 4641-A-864-E Model/Cat number: [id number] Serial number: N/A Events Administrative Assistant: [facility] [facility] Lot number: [id number] Device identifier: [id number] Device identifier type: GS1 As of 10/17/2021 Status: Implanted Stent [employer] Universa 6fr 28cm Firm Positioner Monofilament Tether Stent X96439 - [id number] -Implanted (Left) Ureter Inventory item: [employer] UNIVERSA 6FR 28CM FIRM POSITIONER MONOFILAMENT TETHER STENT [id number]/Cat number: [id number] Events Administrative Assistant: [employer] Lot number: [id number] Size: 6x28 Device identifier: [id number] Device identifier type: GS1 As of 10/18/2023 Status: Implanted Type Not Specified [facility] [facility] 6197-9-010 Simplex P Full Dose Radiopaque Preblend Cement Bone Tobramycin - [id number] - Implanted (Right) Knee Inventory item: [employer] Simplex P Full Dose Radiopaque Preblend Cement Bone Nhzwigemhr7219-2-462 Model/Cat number: [id number] Events Administrative Assistant: [facility] Device identifier: [id number] Device identifier type: GS1 As of 09/30/2019 Status: Implanted [employer] Crushed Chip Frozen Graft 30ml Bone Cancellous [id number] - [id number] - Implanted Spine Lumbar Inventory item: [employer] Crushed Chip Frozen Graft 30ml Bone Cancellous [id number] Model/Cat number: [id number] Events Administrative Assistant: [employer] Lot number: [id number] As of 10/23/2023 Status: Implanted [employer] Allograft Bone Putty 2.5cc 700-025 - [id number] - Implanted Spine Lumbar Inventory item: [employer] Allograft Bone Putty 2.5CC 700-025 Model/Cat number: [id number] Events Administrative Assistant: [employer] Lot number: [id number] Device identifier: [id number] Device identifier type: GS1 As of 10/23/2023 Status: Implanted [employer] Creo Od7.5 Mm L55 Mm Thread Polyaxial Spine Screw Bone Titanium 5146.1757 - [id number] - Implanted Spine Lumbar Inventory item: [employer] Creo Od7.5 Mm L55 Mm Thread Polyaxial Spine Screw Bone Titanium 5146.1757 Model/Cat number: [id number] Events Administrative Assistant: [employer] As of 10/23/2023 Status: Implanted [employer] Creo Od7.5 Mm L50 Mm Thread Polyaxial Spine Screw Bone Titanium 5146.1752 - [id number] - Implanted Spine Lumbar Inventory item: [employer] Creo Od7.5 Mm L50 Mm Thread Polyaxial Spine Screw Bone Titanium 5146.1752 Model/Cat number: [id number] Events Administrative Assistant: [employer] As of 10/23/2023 Status: Implanted [employer] Creo Thread Spinal Cap Locking Nonsterile 1119.0010 - [id number] - Implanted Spine Lumbar Inventory item: [employer] Creo Thread Spinal Cap Locking Nonsterile 1119.0010 Model/Cat number: [id number] Events Administrative Assistant: [employer] As of 10/23/2023 Status: Implanted [employer] Implant Spinal Sable 39r05la 7-14mm 15 Deg 1172.2121s - [id number] - Implanted Spine Lumbar Inventory item: [employer] Implant Spinal Sable 95w32rt 7-14mm 15 Deg 1172.2121S Model/Cat number: [id number] Events Administrative Assistant: [employer] As of 10/23/2023 Status: Implanted [employer] Creo 5.5mm 45mm Curve Daniel Spinal Titanium 1119.7045 - [id number] - Implanted Spine Lumbar Inventory item: [employer] Creo 5.5mm 45mm Curve Daniel Spinal Titanium 1119.7045 Model/Cat number: [phone] Events Administrative Assistant: [employer] As of 10/23/2023 Status: Implanted [employer] Rex Tulip Navalign 30mm 7fr 50mm 65cm Introducer Sheath [id number] - [id number] -Implanted Inventory item: [facility] [employer] Navalign 30mm 7fr 50mm 65cm Introducer Sheath [id number]/Cat number: [id number] Events Administrative Assistant: [employer] Lot number: [id number] As of 11/09/2023 Status: Implanted SKIN Piercings Remaining: No Wound (LDAs) Type of Wound (LDA): (healing wound to buttocks- per LTC facility) SCREENINGS Joni index score: 30 PATIENT CARE PLANNING Advance Directives (For Healthcare) Have you reviewed your Advance Directive and is it valid for this stay?: Yes Advance Directive: Patient has advance directive, copy in chart Communication/Printing Press Operator Needs Communication Needs: None Assistive Devices/DME: Eyeglasses, Manual wheelchair Hearing - Right Ear: Functional Hearing - Left Ear: Functional EM PHYSICIAN NO ADDITIONAL COMMENTS/ FOLLOW UP * Pre-Procedure [...] your insurance card, a photo ID (example: Analytics Associate's License) and a method of payment for [...] questions, please call the CPAP Staff at [phone], Sunday-Sunday 8am-4:30pm. All patients should read the below section: COVID 19 Updates & Visitor Policy: Please access [email or web address] for the most updated information. Information on [facility] & the Orthopedic Center: Please view [email or web address] (Patient & Visitor Information) for additional details regarding Advanced Directive forms, AWARE, directions, parking information, lodging, Internet access, dining and more. Information on [facility] or [facility] ([facility]): Please view [email or web address] (Patient and Visitor Information) for parking/directions and more. For MyChart information, to activate account or password recovery, please go to [email or web address] or call [phone] (toll-free: [phone]), Sun- Sunday 8am-5pm. Information for Suicide Prevention: National Suicide Prevention Lifeline (5-525- 960-LUUN (3123)) or call or text 011. Chat resources: [email or web address]. Surgery Times: For patients having surgery @ [facility] Medicine or [facility] [place] ([facility]), if your surgeon's office has not notified you of your surgery time by NOON THE BUSINESS DAY BEFORE your surgery, please call [phone] and ask for your surgeon's office Dr. [...] 10:14 AM CDT Nephrolithiasis Case Notes - [place] Stone will come out for the patient per Luciana via email.EF 01/31@39- Laser conflict error sent msg to Luciana.EF EXCHANGE NEPHROSTOMY TUBE 02/27/2024 10:14 AM CDT Nephrolithiasis Case Notes - [place] will come out for the patient per Luciana via email.EF 01/31@39- Laser conflict error sent msg to Luciana.EF EXCHANGE STENT - URETERAL 02/27/2024 10:14 AM CDT Nephrolithiasis Case Notes - [place] will come out for the patient per Luciana via email.EF 01/31@39- Laser conflict error sent msg to Luciana.BIPIN URETEROSCOPY 02/27/2024 10:14 AM CDT Nephrolithiasis Case Notes 02/03@0815- [place] Stone will come out for the patient [...] COLI [facility] Organism ENTEROCOCCUS FAECALIS LAURA [facility] Urine, bladder 02/27/2024 10 :57 AM CDT 02/27/2024 2:16 PM CDT Narrative [facility] - 03/02/2024 1:39 PM CDT Bladder Urine Indications for Culture:->Urology patient Specimen received in a sterile container. Testing performed by [facility] ([phone]) Organism Antibiotic Method Susceptibility Escherichia coli Ampicillin [...] AL ORDERABLES Final Result Performing Organization Address City/State/[facility] Co de Phone Number [facility] Department [place] [address] documented in this encounter Visit Diagnoses Diagnosis [...] 02/27/2024 documented in this encounter Care Teams Improvement Nurse Relationship Specialty Start Date End Date Rl Medina DO [address] [id number] PCP - General 08/09/17 05/25/24 documented as of this encounter
--- OUTSIDE RECORDS SUMMARY | 2024-11-05 22:57 | XMS_ITS | Encounter Summary ---
Author Organization [facility] Address [address] [place] [address] Phone Care Team Providers Care Aircraft Seat Upholsterer Name Role Phone Rl Medina DO Primary Care Provider Encounter Details Date Type Department Care Team (Late st Contact Info) Description 01/31/2024 Telephone [facility] Surgery [address] [place] [address] Luciana Chaves CMA Social History Tobacco Use Types Packs/Day Years Used Date Smoking Tobacco: Former Cigarettes 1 09 05 969 - 1979 Passive Smoke Exposure: Never Smokeless Tobacco: Never Alcohol Use Standard Drinks/Week Comments Yes 14 (1 standard drink = 0.6 oz pu re alcohol) social [facility] Utilities Answer Date Recorded In the past 12 months has [employer], gas, oil, or water [email or web address] threatened to shut off services in your [...] often do you attend chur ch or hindu services? 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 documented in this encounter Plan of Treatment Not on file documented as of this encounter Visit Diagnoses Not on filedocumented in this encounter Care Teams Aircraft Seat Upholsterer Relationship Specialty Start Date End Date Rl Medina DO [address] [place] [address] PCP - General 08/09/17 05/25/24 documented as of this encounter
--- OUTSIDE RECORDS SUMMARY | 2024-11-05 22:57 | XMS_ITS | Encounter Summary ---
Author Organization [facility] Healthcare Address [address] [place] [address] Care Team Providers Care Manager Retail Name Role Phone Rl Medina DO Primary Care Provider [phone] No, Physician Primary Care Provider [phone] Encounter Details Date Type Department Care Team (Late st Contact Info) Description 03/13/2024 Telephone [facility] Radiology [address] [place] [address] Crow Pham RN Social History Tobacco Use Types Packs/Day Years Used Date Smoking Tobacco: Former Cigarettes 1 09 05 969 - 1979 Passive Smoke Exposure: Never Smokeless Tobacco: Never Alcohol Use Standard Drinks/Week Comments Yes 14 (1 standard drink = 0.6 oz pu re alcohol) social [facility] Utilities Answer Date Recorded In the past 12 months has [employer], gas, oil, or water [employer] threatened to shut off services in your [...] file 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
--- OUTSIDE RECORDS SUMMARY | 2024-11-05 22:57 | XMS_ITS | Encounter Summary ---
Author Organization [facility] Address [address] [place] [address] Phone Care Team Providers Care Coating Machine Feeder Name Role Phone Rl Medina DO Primary Care Provider Reason for Referral * Consultation (Routine) - Closed Specialty Diagnoses / Procedures Referred By Manisha gale Referred To Contact Neurology Diagnoses Subdural hematoma (HCC) Seizures (HCC) Carrie Jerez NP [address] [place] [address] Phone: tel: fax: [facility] Epilepsy [address] [facility] 6th [place] [address] [place] [address] Phone: tel: fax: Referral ID Status Reason Start Date Expiration Date V isits Requested Visits Authorized [id number] Closed Specialty Services Required 01/10/2024 02/08/2025 1 1 Question Answer Please select the performing region: [facility] (All Locations) [167] # of visits: 1 Comments EPILEPSY Please call pt to schedule K SETTER OPERATOR Encounter Details Date Type Department Care Team (Late st Contact Info) Description 01/10/2024 Orders Only [facility] Neurosurgery [address] [facility] [address] [place] [address] Carrie Jerez CARLA [address] [place] [address] Subdural hematoma (HCC) (Primary Dx); Seizures (HCC) Social History Tobacco Use Types Packs/Day Years Used Date Smoking Tobacco: Former Cigarettes 1 11 1 969 - 1979 Passive Smoke Exposure: Never Smokeless Tobacco: Never Alcohol Use Standard Drinks/Week Comments Yes 14 (1 standard drink = 0.6 oz pu re alcohol) social [facility] Utilities Answer Date Recorded In the past 12 months has [employer], gas, oil, or water [employer] threatened to shut off services in your [...] you attend [facility] or confucianist services? 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
--- OUTSIDE RECORDS SUMMARY | 2024-11-05 22:57 | XMS_ITS | Encounter Summary ---
Author Organization [facility] Address [address] [place] [address] Phone Care Team Providers Care Construction Equipment Operator Name Role Phone Rl Medina DO Primary Care Provider Encounter Details Date Type Department Care Team (Late st Contact Info) Description 02/13/2024 Telephone [facility] Hematology [address] [facility] 7th [place] [address] [place] [address] Oneyda Kaur RN Social History Tobacco Use Types Packs/Day Years Used Date Smoking Tobacco: Former Cigarettes 1 11 969 - 1979 Passive Smoke Exposure: Never Smokeless Tobacco: Never Alcohol Use Standard Drinks/Week Comments Yes 14 (1 standard drink = 0.6 oz pu re alcohol) social [facility] Utilities Answer Date Recorded In the past 12 months has [employer], gas, oil, or water [employer] threatened to shut off services in your [...] often do you attend chur ch or buddhism services? 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 Once complete, he will start Momfmgm52 mg daily. Confirmed with her he has hematology appointment on 04/11. He will remain on anticoagulat ion until his visit. documented in this encounter Plan of Treatment Not on file documented as of this encounter Visit Diagnoses Not on filedocumented in this encounter Care Teams Construction Equipment Operator Relationship Specialty Start Date End Date Rl Medina DO [address] [place] [address] PCP - General 08/09/17 05/25/24 documented as of this encounter
--- OUTSIDE RECORDS SUMMARY | 2024-11-05 22:57 | XMS_ITS | Encounter Summary ---
Author Organization [facility] Healthcare Address [address] [place] [address] Care Team Providers Care Bulk Mail Clerk Name Role Phone Rl Medina DO Primary Care Provider Reason for Referral * Diagnostic Imaging (Routine) - Closed Specialty Diagnoses / Procedures Referred By Manisha gale Referred To Contact Radiology Diagnoses Hydronephrosis with urinary obstruction due to renal calculus Procedures IR Nephrostomy Catheter Change Left Dennis Albarado MD [address] [place] [address] Phone: tel: fax: [address] [address] Referral ID Status Reason Start Date Expiration Date Visits Re quested Visits Authorized [id number] Closed 12/26/2023 01/24/2025 1 1 Reason for Visit * Diagnostic Imaging (Routine) - Closed Specialty Diagnoses / Procedures Referred By Manisha gale Referred To Contact Radiology Diagnoses Hydronephrosis with urinary obstruction due to renal calculus Procedures IR Nephrostomy Catheter Change Left Dennis Albarado MD [address] [place] [address] Phone: tel: fax: [address] [address] Referral ID Status Reason Start Date Expiration Date Visits Re quested Visits Authorized [id number] Closed 12/26/2023 01/24/2025 1 1 Encounter Details Date Type Department Care Team (Latest Contact Info) Description 02/05/2024 10:27 AM CDT - 02/05/2024 11:59 PM CDT Hospital Encounter [facility] Radiology [facility] [place] [address] [place] [address] Hydronephrosis with urinary obstruction due to renal calculus Discharge Disposition: Discharge to home or self care Social History Tobacco Use Types Packs/Day Years Used Date Smoking Tobacco: Former Cigarettes 1 11 1 969 1979 Passive Smoke Exposure: Never Smokeless Tobacco: Never Alcohol Use Standard Drinks/Week Comments Yes 14 (1 standard drink = 0.6 oz pu re alcohol) social [employer] Utilities Answer Date Recorded In the past [...] file 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 To contact an Interventional Radiologist at [facility] call [phone] Sunday through Sunday from 7:30am-4:30pm. At all other times call [phone] and ask that the Interventional Radiologist be paged. To contact an Interventional Radiologist at [facility] call [phone] Sunday through Sunday from 7:30am-3:30pm. To contact an Interventional Radiologist RN at [facility] call [phone] Sunday through Sunday from 7:00 am-5:00 pm. To schedule an appointment with Interventional Radiology at [facility] call [phone] Sunday through Sunday from 7:30 am-4:00 pm. [...] conversion. Please come to: [] 3rd Floor [facility] [] 4th floor [facility] [] [facility] [] [facility] Please call [phone] if you need to schedule a follow [...] ound healing Take 1 tablet by mouth associate brand manager before breakfast ondansetron ODT (ZOFRAN-ODT) 4 [...] 1 tablet (20 mEq total) by mouth associate brand manager before breakfast 4 senna-docusate (PERICOLACE) 8.6-50 [...] Miscellaneous Notes * Post-Procedure Note - Tamia Rojas MD - 02/05/2024 11:00 AM CDT Radiology Brief Post Procedure Note Attending: BONITA Chase; Dr. [facility] [employer] [facility] Supervisor: Dr. Rojas Sedation/Anesthesia: Local Pre-Op/Pre-Procedure Diagnosis: Left [...] mid ureteral stricture. Status post left 10Fr Augusta nephrostomy tube on 12/26/2023. Presents for exchange/possible [...] placement on 12/26/23 with a 10 Fr Augusta catheter. There was discussion regarding possible conversion [...] were discussed. Prior to beginning the procedure, [place] Protocol was performed to confirm the patient's [...] over wire for a new 10 Fr Augusta catheter with appropriate catheter tip positioning in [...] placement on 12/26/23 with a 10 Fr Augusta catheter. There was discussion regarding possible conversion [...] were discussed. Prior to beginning the procedure, [place] Protocol was performed to confirm the patient's [...] over wire for a new 10 Fr Augusta catheter with appropriate catheter tip positioning in [...] 02/05/2024 documented in this encounter Care Teams Bulk Mail Clerk Relationship Specialty Start Date End Date Rl Medina DO [address] [place] [address] PCP - General 08/09/17 05/25/24 documented as of this encounter
--- OUTSIDE RECORDS SUMMARY | 2024-11-05 22:57 | XMS_ITS | Encounter Summary ---
Author Organization [facility] Address [address] [place] [address] Care Team Providers Care Process Development Technician Name Role Phone Rl Medina DO Primary Care Provider Encounter Details Date Type Department Care Team (Latest Contact Info) Description 01/23/2024 6:08 PM CDT - 01/23/2024 11:59 PM CDT Hospital Encounter [facility] [id number] [place] [address] Discharge Disposition: Discharge to home or self care Social History Tobacco Use Types Packs/Day Years Used Date Smoking Tobacco: Former Cigarettes 1 1979 Passive Smoke Exposure: Never Smokeless Tobacco: Never Alcohol Use Standard Drinks/Week Comments Yes 14 (1 standard drink = 0.6 oz pu re alcohol) social [facility] Utilities Answer Date Recorded In the past 12 months has [employer], gas, oil, or water [employer] threatened to shut off services in your [...] on file 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 Gender Identity Not on file Sexual Orientation Not on file 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 Not on file [...] ound healing Take 1 tablet by mouth count team member before breakfast ondansetron ODT (ZOFRAN-ODT) 4 mg [...] 1 tablet (20 mEq total) by mouth count team member before breakfast 4 senna-docusate (PERICOLACE) 8.6-50 mg [...] MD LAB BLOOD ORDERABLES Final R esult [facility] [address] [place] [address] * Differential, auto (01/23/2024 6:08 PM CDT) Neutrophil abs 6.3 1.5 - 6.5 K/cumm Imm gran abs 0.0 0.0 - 0.1 K/cumm [facility] Lymphocyte abs 1.8 0.8 - 3.3 K/cumm [facility] Monocyte abs 0.6 0.2 - 0.8 K/cumm [facility] Eosinophil abs 0.3 0.0 - 0.5 K/cumm [facility] Basophil abs 0.1 0.0 - 0.1 K/cumm [facility] Neutrophil pct 69.1 % [facility] Comment: Interpretive Data Percent cell count [...] revised on 2018. Lymphocyte pct 20.1 % [facility] Comment: Interpretive Data Percent cell count reference ranges are not reported, since discordance with absolute values may lead to misinterpretation of CBC data. Current Interpretive Data was last revised on 2018. Monocyte pct 6.4 % [facility] Comment: Interpretive Data Percent cell count reference ranges are not reported, since discordance with absolute values may lead to misinterpretation of CBC data. Current Interpretive Data was last revised on 2018. Eosinophil pct 3.3 % [facility] Comment: Interpretive Data Percent cell count reference ranges are not reported, since discordance with absolute values may lead to misinterpretation of CBC data. Current Interpretive Data was last revised on 2018. Basophil pct 0.7 % [facility] Comment: Interpretive Data Percent cell count reference ranges are not reported, since discordance with absolute values may lead to misinterpretation of CBC data. Current Interpretive Data was last revised on 2018. Blood 01/23/2024 6:08 PM CDT 01/23/2024 6:48 PM CDT us Vinniedave Cueva MD LAB BLOOD ORDERABLES Final R esult [facility] [address] [place] [address] * (ABNORMAL) CBC with auto differential (01/23/2024 6:08 PM CDT) WBC 9.2 3.8 - 9.9 K/cumm Hgb 10.5(L) 13.0 - 17.5 g/dL [facility] Hct 34.3(L) 38.9 - 50.3 % [facility] Plt 196 150 - 400 K/cumm [facility] MPV 11.3 9.1 - 12.3 fL [facility] RBC 3.71(L) 4.30 - 5.80 M/cumm [facility] MCV 92.5 81.3 - 96.4 fL [facility] MCH 28.3 27.1 - 33.3 pg [facility] MCHC 30.6(L) 32.3 - 35.7 g/dL [facility] RDW CV 14.1 11.1 - 14.9 % [facility] RDW SD 47.4 35.7 - 48.[address] [facility] NRBC abs 0.00 0.00 - 0.01 K/cumm [facility] Blood 01/23/2024 6:08 PM CDT 01/23/2024 6:48 PM CDT Vinnie Cueva MD LAB BLOOD ORDERABLES Final R esult Performing Organization Address [facility] Co de Phone Number [facility]UR[facility] [address] [place] [address] * Magnesium (01/23/2024 6:08 PM CDT) [facility] Magnesium 2.0 1.4 - 2.5 mg/dL Blood 01/23/2024 6:08 PM CDT 01/23/2024 6:48 PM CDT Vinniedave Cueva MD LAB BLOOD ORDERABLES Final R [facility] Performing Organization Address [facility] de Phone Number LAURA [address] [place] [address] * (ABNORMAL) Basic metabolic panel, serum (01/23/2024 6:08 PM CDT) Pathologist [facility] Sodium 142 135 - 145 mmol/L Potassium, sr 4.1 3.6 - 5.2 mmol/L [facility] Chloride 100 97 - 110 mmol/L [facility] CO2 31 22 - 32 mmol/L [facility] Anion gap 11 2 - 15 mmol/L [facility] BUN 38(H) 6 - 25 mg/dL [facility] Creatinine 0.86 0.80 - 1.30 mg/dL [facility] Glucose 145 70 - 199 mg/dL [facility] Comment: Interpretive Data Fasting glucose >/= [...] BLOOD ORDERABLES Final R esult [facility] [place] [address] [place] [address] documented in this encounter Visit Diagnoses Not on filedocumented in this encounter Care Teams Process Development Technician Relationship Specialty [place] [address] [place] [address] PCP - General 08/09/17 05/25/24 documented as of this encounter
--- OUTSIDE RECORDS SUMMARY | 2024-11-05 22:57 | XMS_ITS | Encounter Summary ---
Author Organization [facility] Address [address] [place] [address] Phone Care Team Providers Care Rn Gynecology Name Role Phone Rl Medina DO Primary Care Provider Encounter Details Date Type Department Care Team (Late st Contact Info) Description 04/03/2024 Telephone [facility] Hematology [address] [facility] 7th [place] [address] [place] [address] Mary Almaraz Social History Tobacco Use Types Packs/Day Years Used Date Smoking Tobacco: Former Cigarettes 1 11 1 969 - 1979 Passive Smoke Exposure: Never Smokeless Tobacco: Never Alcohol Use Standard Drinks/Week Comments Yes 14 (1 standard drink = 0.6 oz pu re alcohol) social [facility] Utilities Answer Date Recorded In the past 12 months has [employer], gas, oil, or water [employer] threatened to shut off services in your [...] on file 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 Hampton for next Sunday, 04/11 at 9:00AM at the [facility] with labs following. documented in this encounter Plan of Treatment Not on file documented as of this encounter Visit Diagnoses Not on filedocumented in this encounter Care Teams Rn Gynecology Relationship Specialty Start Date End Date Rl Medina DO [address] [place] [address] PCP - General 08/09/17 05/25/24 documented as of this encounter
--- OUTSIDE RECORDS SUMMARY | 2024-11-05 22:57 | XMS_ITS | Encounter Summary ---
Author Organization [facility] Address [address] [place] [address] Phone Care Team Providers Care Rn Maternity Name Role Phone Rl Medina DO Primary Care Provider [phone] Encounter Details Date Type Department Care Team (Late st Contact Info) Description 04/07/2024 Telephone [facility] Surgery [address] [facility] [address] 1 [place] [address] Candi Sanz CMA Social History Tobacco Use Types Packs/Day Years Used Date Smoking Tobacco: Former Cigarettes 1 11 1 969 - 1979 Passive Smoke Exposure: Never Smokeless Tobacco: Never Alcohol Use Standard Drinks/Week Comments Yes 14 (1 standard drink = 0.6 oz pu re alcohol) social [facility] Utilities Answer Date Recorded In the past 12 months has [employer], gas, oil, or water [employer] threatened to shut off services in your [...] on file 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
--- OUTSIDE RECORDS SUMMARY | 2024-11-05 22:57 | XMS_ITS | Encounter Summary ---
Author Organization [facility] Address [address] [place] [address] Phone Care Team Providers Care Electrical Checkout Mechanic Name Role Phone Rl Medina DO Primary Care Provider Encounter Details Date Type Department Care Team (Late st Contact Info) Description 01/09/2024 Telephone [facility] Orthopaedic Surgery [address] [facility] 6th [place] [address] [place] [address] Marcial Vu Jr., MD [address] [facility] [place] [address] Social History Tobacco Use Types Packs/Day Years Used Date Smoking Tobacco: Former Cigarettes 1 11 969 - 1979 Passive Smoke Exposure: Never Smokeless Tobacco: Never Alcohol Use Standard Drinks/Week Comments Yes 14 (1 standard drink = 0.6 oz pu re alcohol) social [facility] Utilities Answer Date Recorded In the past 12 months has [employer], gas, oil, or water [employer] threatened to shut off services in your [...] on file 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 Pt never scheduled for an appt since he has been in and out of the hospital/ rehab. Spoke with Kasandra in scheduling at [facility] hematology requesting this pt becontacted to schedule clinic appt to further discuss DVT prophylaxis in relation to IVC filter and anticoagulation. Recommended Kasandra contact pt's and EC, Val, since pt is currently [facility] facility. Kasandra in agreement with plan. Will f/u to ensure pt is scheduled. F READER documented in this encounter Plan of Treatment Not on file documented as of this encounter Visit Diagnoses Not on filedocumented in this encounter Care Teams Electrical Checkout Mechanic Relationship Specialty Start Date End Date Rl Medina DO [address] [place] [address] PCP - General 08/09/17 05/25/24 documented as of this encounter
--- OUTSIDE RECORDS SUMMARY | 2024-11-05 22:57 | XMS_ITS | Encounter Summary ---
Author Organization [facility] Healthcare Address [address] [place] [address] Care Team Providers Care Clinical Recruiter Name Role Phone Rl Medina DO Primary Care Provider Reason for Referral * Diagnostic Imaging (Routine) - Closed Specialty Diagnoses / Procedures Referred By Contac t Referred To Contact Diagnoses S/P laminectomy with spinal fusion Procedures XR Spine Lumbar 2 or 3 Views Marcial Vu Jr., MD [address], [place] [address] Phone: tel: fax: [facility] Radiology [address] [place] [address] Phone: tel: Referral ID Status Reason Start Date Expiration Date Visits Re quested Visits Authorized [id number] Closed 03/18/2024 04/17/2025 1 1 * Diagnostic Imaging (Routine) - Closed Specialty Diagnoses / Procedures Referred By Contac t Referred To Contact Diagnoses S/P laminectomy with spinal fusion Procedures XR Spine Thoracic 2 Views Marcial Vu Jr., MD [address], [place] [address] Phone: tel: fax: [facility] Radiology [address] [place] [phone] Phone: tel: Referral ID Status Reason Start Date Expiration Date Visits Re quested Visits Authorized [id number] Closed 03/18/2024 04/17/2025 1 1 Reason for Visit * Diagnostic Imaging (Routine) - Closed Specialty Diagnoses / Procedures Referred By Contac t Referred To Contact Diagnoses S/P laminectomy with spinal fusion Procedures XR Spine Thoracic 2 Views Marcial Vu Jr., MD [address] [facility] [address]6B[address] [place] [address] Phone: tel: fax: [facility] Radiology [address] [place] [address] [address] [facility] [place] [address] Phone: tel: Referral ID Status Reason Start Date Expiration Date Visits Re quested Visits Authorized [id number] Closed 03/18/2024 04/17/2025 1 1 Encounter Details Date Type Department Care Team (Latest Contact Info) Description 03/27/2024 9:30 AM CDT - 03/27/2024 11:59 PM CDT Hospital Encounter [facility] Radiology [address] [place] [address] [place] [address] S/P laminectomy with spinal fusion Discharge [...] Recorded In the past 12 months has [employer], gas, oil, or water [employer] threatened to shut off services in your [...] on file 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 Gender Identity Not on file Sexual Orientation Not on file 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
--- OUTSIDE RECORDS SUMMARY | 2024-11-05 22:57 | XMS_ITS | Encounter Summary ---
Author Organization [facility] Address [address] [place] [address] Phone Care Team Providers Care Cooler Operator Name Role Phone Rl Medina DO Primary Care Provider Reason for Referral * Diagnostic Imaging (Routine) - Closed Specialty Diagnoses / Procedures Referred By Contac t Referred To Contact Diagnoses S/P laminectomy with spinal fusion Procedures XR Spine Lumbar 2 or 3 Views Marcial Vu Jr., MD [address] [address] Phone: tel: fax: [facility] Radiology [address] [place] [id number] Phone: tel: Referral ID Status Reason Start Date Expiration Date Visits Re quested Visits Authorized [id number] Closed 01/04/2024 02/02/2025 1 1 OAT ENGINEER * Diagnostic Imaging (Routine) - Closed Specialty Diagnoses / Procedures Referred By Contac t Referred To Contact Diagnoses S/P laminectomy with spinal fusion Procedures XR Spine Thoracic 2 Views Marcial Vu Jr., MD [address] [address] Phone: tel: fax: [id number] [address] [facility] [address] [place] [address] Phone: tel: Referral ID Status Reason Start Date Expiration Date Visits Re quested Visits Authorized [id number] Closed 01/04/2024 02/02/2025 1 1 OAT ENGINEER Reason for Visit * Reason Comments Post-op Encounter Details Date Type Department Care Team (Late st Contact Info) Description 01/07/2024 8:00 AM TOWBOAT ENGINEER Office Visit [facility] Orthopaedic Surgery [address] [facility] [address] [place] [address] Marcial Vu Jr., MD [address] [facility] [address] [place] [address] S/P laminectomy with spinal fusion (Primary Dx) Social History Tobacco Use Types Packs/Day Years Used Date Smoking Tobacco: Former Cigarettes 1 11 1979 Passive Smoke Exposure: Never Smokeless Tobacco: Never Alcohol Use Standard Drinks/Week Comments Yes 14 (1 standard drink = 0.6 oz pu re alcohol) social [facility] Utilities Answer Date Recorded In the past 12 months has e-Tag, gas, oil, or water [employer] threatened to shut off services in your [...] on file Legal Sex Male 9:07 PM TOWBOAT ENGINEER Gender Identity Not on file Sexual Orientation Not on file 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 Dr. Vu has recommended the following treatment: -4 weeks -Okay to discontinue use of TLSO brace Please contact Galina Franco RN, BSN at [phone] or through [employer] if you have any further questions or concerns. Important Phone Numbers: Galina Franco, Nurse Coordinator to Dr. Vu: [phone] Appointment Line: [phone] For medical emergencies, please call 911. OAT ENGINEER OAT ENGINEER documented in this encounter Progress Notes [...] most recent surgery. He remains at a intermediate facility. He has been receiving Lasix and [...] the 2nd surgery. He remains in a intermediate facility and has been working with therapy to maximize his mobility and upper extremity strength. Treatment Plan Told him that he can discontinue use of the TLSO brace. He and his family have been working on modifications to their home and lifestyle in order to prepare for him to return home from the intermediate facility. We will have him see Hematology [...] with this plan. Marcial Vu Jr., MD Slasher Tender Helper Department of Orthopaedic Surgery Division of Spine Surgery [facility] [employer] [facility] [place] Reel Man done by [employer]; therefore, variances and inaccuracies may occur. I reviewed the patient problem list pertinent to the visit today, but the entire patient problem list was not reviewed today. Total time spent on this patient visit today was 30 minutes dedicated to chart review, independent imaging review, patient evaluation, examination, counseling and education, and coordination of care. OAT ENGINEER documented in this encounter Plan of Treatment Not on file documented as of this encounter Results * XR Spine Lumbar 2 or 3 Views (01/07/2024 8:23 AM TOWBOAT ENGINEER) Anatomical Region Laterality Modality Spine N/A Computed Radiogr aphy 01/07/2024 9:23 AM TOWBOAT ENGINEER Impressions 01/07/2024 5:25 PM TOWBOAT ENGINEER Intact L4-L5 posterior spinal instrumented fusion with [...] Justin Choi MD Narrative 01/07/2024 5:25 PM TOWBOAT ENGINEER EXAMINATION: 1. ??XR SPINE THORACIC 2 VIEWS, [...] Spine Thoracic 2 Views (01/07/2024 8:23 AM TOWBOAT ENGINEER) Anatomical Region Laterality Modality Spine N/A Computed Radiogr aphy 01/07/2024 9:23 AM TOWBOAT ENGINEER Impressions 01/07/2024 5:25 PM TOWBOAT ENGINEER Intact L4-L5 posterior spinal instrumented fusion with [...] Justin Choi MD Narrative 01/07/2024 5:25 PM TOWBOAT ENGINEER EXAMINATION: 1. ??XR SPINE THORACIC 2 VIEWS, [...] s:wound healing Take 1 tablet by mouth chief medical director before breakfast zolpidem (AMBIEN) 5 mg tabletIndication s:Sleep-Onset Insomnia Take 1 tablet (5 mg total) by mouth nightly as needed for sleep 4 arginine-glutami ne-calcium HMB 7-7-1.5 gram powder in packetIndication s:wound Take 1 Dose by mouth 2 (two) times a day Scout 4 added in this encounter Care Teams Cooler Operator Relationship Specialty Start Date End Date Rl Medina DO [address] [place] [address] PCP - General 08/09/17 05/25/24 documented as of this encounter
--- OUTSIDE RECORDS SUMMARY | 2024-11-05 22:57 | XMS_ITS | Encounter Summary ---
Author Organization [facility] Healthcare Address [address] [place] [address] Care Team Providers Care Mechanical Technician Name Role Phone Rl Medina DO Primary Care Provider Reason for Visit * Auth/Cert (Routine) Specialty Diagnoses / Procedures Referred By Contac t Referred To Contact Diagnoses Nephrolithiasis Nephrolithiasis [N20.0] Procedures MO CYSTO/URETERO W/LITHOTRIPSY &INDWELL STENT INSRT URETEROSCOPY LITHOTRIPSY - LASER EXCHANGE STENT - URETERAL Referral ID Status Reason Start Date Expiration Date Visits Re quested Visits Authorized [id number] 1 1 Encounter Details Date Type Department Care Team (Latest Contact Info) Description 02/27/2024 8:47 AM CDT - 02/27/2024 2:05 PM CDT Hospital Encounter [facility] Operating Room [address] [place] [address] Temo Mcintosh MD [address] [place] [address] Nephrolithiasis (Primary Dx) Discharge Disposition: Discharge to [...] Recorded In the past 12 months has [employer], gas, oil, or water [email or web address] threatened to shut off services in your [...] on file Legal Sex Male 9:07 PM PODIATRIST Gender Identity Not on file Sexual Orientation Not on file 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 Diet: [place] diet: At first eat a bland diet; [...] Time Provider Department Center 03/18/2024 11:00 AM [facility] N IR [address] [facility] N IR [facility] Main IMG 03/27/2024 10:00 AM Marcial Vu Jr., MD SPINE BW4 OS 04/08/2024 10:00 AM [facility] S PROCEDURE ROOM [facility] EEG [facility] Main 04/09/2024 11:30 AM [facility] S PROCEDURE ROOM [facility] EEG [facility] Main 04/11/2024 8:20 AM [facility] BCT2 [facility] N CT [facility] Main IMG 04/11/2024 9:00 AM Katharine [...] Sunday, 8 AM to 5:00 PM: call [phone] and ask for a member of your doctor's team. For urgent matters after 5:00 PM during the week or on weekends or holidays, call [phone] and ask to have the Urology Shoe Salesperson Physician paged for you. documented in this [...] ound healing Take 1 tablet by mouth heavy equipment field mechanic before breakfast ondansetron ODT (ZOFRAN-ODT) 4 mg [...] 1 tablet (20 mEq total) by mouth heavy equipment field mechanic before breakfast 4 senna-docusate (PERICOLACE) 8.6-50 mg [...] Preoperative Evaluation Record Evaluation type/location: TPAP from [facility] Planned procedure site: [facility] PVT OR (Pod 1) Date: 02/20/24 [...] DVT/PE episodes: 1. Pertinent negatives: CAD ; [place] ; CABG ; atrial fibrillation; pacemaker/ICD; negative [...] were provided via telephone and faxed to [place]. Patient verbalized understanding of DOS instruction as [...] creatinine clearance is 75.1 ml/min. Per the [facility] Perioperative Antithrombotic Toolkit, we recommend discontinuing this medication for 72 hours prior to surgery to minimize the duration of anticoagulation discontinuation. Therapeutic anticoagulation should be resumed postoperatively as soon as possible. Alternative anticoagulation therapies can be used in the interim if acceptable. Discussed with surgeon's office. Please call the CPAP clinic ([phone]) to revisit risk assessment, with any questions, or to discuss alternative management plans. Preoperative evaluation performed by Hannah Gay NP on 02/20/24 at 2:18 PM . Patient Active Problem List Diagnosis Date Noted Nephrolithiasis 12/25/2023 DVT (deep venous thrombosis) ([facility]/HCC) ([facility]) 11/29/2023 Anemia 11/29/2023 Paraspinal hematoma 11/29/2023 Hyponatremia 11/29/2023 Elevated transaminase level 11/29/2023 Lower extremity edema 11/29/2023 Scrotal swelling 11/29/2023 Seizure ([facility]) 11/29/2023 Prediabetes 11/29/2023 Kidney stone 11/09/2023 Paralysis of both lower limbs (CMS/HCC) ([facility]) 11/07/2023 Pulmonary embolism ([facility]) 10/26/2023 S/P spinal fusion 10/23/2023 Cardiac arrest ([facility]) 10/23/2023 Left perinephric collection, likely [...] by mouth 2 (two) times a day knjjfske-vxervfdmb-jynhjpl HMB 7-7-1.5 gram powder in packet 02/14/2024 [...] taking differently: Take 1 tablet by mouth heavy equipment field mechanic before breakfast tamsulosin (FLOMAX) 0.4 mg extended [...] mg tablet acyclovir (ZOVIRAX) 400 mg tablet pyuyjbzz-diffuecff-ldrgrfh HMB 7-7-1.5 gram powder in packet ascorbic [...] Resident - Assisting Anesthesiologist: Larissa Mathews MD RAILROAD CAR LOADER: Mildred Harrison CRNA; Olivia Silvestre CRNA Slat Grader: Honorio Bhakta RN Scrub Relief: Marla Benson RN Scrub: Eula Marroquin RN; Nelly Lo RN FLAT KNITTER: Robb Roth DATE OF SURGERY : 02/27/2024 [...] Implant Name Type Inv. Item Serial No. Car Oiler Lot No. LRB No. Used Action [employer] [id number] 6fr 26cm 145cm Radiopaque Positioner Filiform Flexible Tip - [id number] Stent [employer] [id number] 6fr 26cm 145cm Radiopaque Positioner Filiform Flexible Tip [employer] [id number] Left 1 Implanted [employer] UNIVERSA 6FR 28CM FIRM POSITIONER MONOFILAMENT TETHER STENT [id number] - [id number] Stent [employer] UNIVERSA 6FR 28CM FIRM POSITIONER MONOFILAMENT TETHER STENT [id number] [employer] [id number] Left 1 Explanted Blood/Blood Products Transfused: None [...] Preoperative Assessment and Planning CPAP Clinic Location: [facility] The night before your surgery: * Do [...] Take on day of surgery if needed ivdgyifb-zqxeoygzk-jzaqgtm HMB 7-7-1.5 gram powder in packet Don't [...] Planning Perioperative Nursing Note Telephone Preoperative Evaluation ([facility]) - TELEPHONE ONLY, NO PHYSICAL EXAM Date: 02/14/24 This assessment was completed with the patient's medical representative, [facility] facility . Vitals: 02/14/24 1000 Weight: [...] by mouth 2 (two) times a day zvatackz-wpfckvdpr-wjmjlrs HMB 7-7-1.5 gram powder in packet Take [...] multivitamin tablet Take 1 tablet by mouth heavy equipment field mechanic before breakfast ondansetron ODT (ZOFRAN-ODT) 4 mg [...] 1 tablet (20 mEq total) by mouth heavy equipment field mechanic before breakfast senna-docusate (PERICOLACE) 8.6-50 mg Take 1 tablet by mouth nightly (Patient taking differently: Take 1 tablet by mouth heavy equipment field mechanic before breakfast) Xarelto 15 mg tablet Take 1 tablet (15 mg total) by mouth 2 (two) times a day For 21 days Implants Bone Cement [facility] 6197-9-010 Simplex P Full Dose Radiopaque Preblend Cement Bone Tobramycin - S0- [id number] - Implanted (Right) Knee Inventory item: [employer] Simplex P Full Dose Radiopaque Preblend Cement Bone Cgojxxynqm3214-3-893 Model/Cat number: [id number] Serial number: 0 Car Oiler: [facility] Lot number: [id number] Device identifier: [id number] Device identifier type: [facility] As of 09/30/2019 Status: Implanted Other - see comments [employer]tho [id number] Kandace II 15mm Constrain Knee 5-6 Insert Articular Uhmwpe- S0 - [id number] - Implanted (Right) Knee Inventory item: [employer]RICH[employer]/ORTHO Kandace Ii 15mm Constrain Knee 5-6 Insert ArticularUhmwpe [id number] Model/Cat number: [id number] Serial number: 0 Car Oiler: [employer]Or[employer]o Lot number: [id number] As of 09/30/2019 Status: Implanted [employer]Ortho [id number] Legion 10mm Screw Knee 6 Wedge Femoral - S0 - [id number] -Implanted (Right) Knee Inventory item: [employer]RICHCO/ORTHO Legion 10mm Screw Knee 6 Wedge Femoral [id number] Model/Cat number: [id number] Serial number: 0 Car Oiler: [employer]Ortho Device identifier: [id number] Device identifier type: [facility] As of 09/30/2019 Status: Implanted [employer]/Ortho [id number] Legion Constrain Knee Right 6 Component Femoral Oxinium - S0 - [id number] - Implanted (Right) Knee Inventory item: [employer]RICHCO/ORTHO Legion Constrain Knee Right 6 Component Femoral Oxinium [id number] Model/Cat number: [id number] Serial number: 0 Car Oiler: [employer]Or[employer]o Lot number: [id number] As of 09/30/2019 Status: Implanted [employer]Ortho [id number] Legion 5mm Alcon Step Knee Right Medial Left Lateral 5-6 Wedge - S0 - [id number] - Implanted (Right) Knee Inventory item: [employer]RICH[employer]/ORTHO Legion 5mm Alcon Step Knee Right Medial Left Lateral5-6 Wedge [id number] Model/Cat number: [id number] Serial number: 0 Car Oiler: [employer]Ortho Device identifier: [id number] Device identifier type: HIB As of 09/30/2019 Status: Implanted [employer]/Ortho [id number] Legion 15mm 160mm Press Fit Knee Stem Femoral - S0 - [id number] - Implanted (Right) Knee Inventory item: [employer]RICHCO/ORTHO Legion 15mm 160mm Press Fit Knee Stem Femoral [id number] Model/Cat number: [id number] Serial number: 0 Car Oiler: [employer] Lot number: [id number] As of 09/30/2019 Status: Implanted [employer]/Ortho [id number] Legion 10mm Screw Knee 6 Wedge Femoral - S0 - [id number] -Implanted (Right) Knee Inventory item: [employer]RICHCO/ORTHO Legion 10mm Screw Knee 6 Wedge Femoral [id number] Model/Cat number: [id number] Serial number: 0 Car Oiler: [employer]Or[employer] Lot number: [id number] As of 09/30/2019 Status: Implanted [employer]/Ortho [id number] Legion Revision Knee Right 5 Baseplate Tibial - S0 - [id number] - Implanted (Right) Knee Inventory item: [employer]RICHCO/ORTHO Legion Revision Knee Right 5 Baseplate Tibial [id number] Model/Cat number: [id number] Serial number: 0 Car Oiler: [employer]Ortho Lot number: [id number] Device identifier: [id number] Device identifier type: GS As of 09/30/2019 Status: Implanted [employer]/Ortho [id number] Legion 15mm 160mm Press Fit Knee Stem Femoral - S0 - [id number] - Implanted (Right) Knee Inventory item: [employer]RICHCO/ORTHO Legion 15mm 160mm Press Fit Knee Stem Femoral [id number] Model/Cat number: [id number] Serial number: 0 Car Oiler: [employer]Ortho Lot number: [id number] Device identifier: [id number] Device identifier type: GS1 As of 09/30/2019 Status: Implanted [facility] 5517-F-501 Triathlon Cruciate Retain Bead Knee Left 5 Component Femoral Pa - Sn/A - [id number] - Implanted (Left) Knee Inventory item: [facility] Triathlon Cruciate Retain Bead Knee Left 5 Component Femoral Pa 5517-F-501 Model/Cat number: [id number] Serial number: N/A Car Oiler: [facility] Lot number: [id number] Device identifier: [id number] Device identifier type: GS1 As of 10/17/2021 Status: Implanted [facility] 5536-B-600 Triathlon Knee 6 Baseplate Tibial Tritanium - Sn/A - [id number] - Implanted (Left) Knee Inventory item: [employer] Triathlon Knee 6 Baseplate Tibial Tritanium 5536-B-600 Model/Cat number: [id number] Serial number: N/A Car Oiler: [employer] [facility] Lot number: [id number] Device identifier: [id number] Device identifier type: GS1 As of 10/17/2021 Status: Implanted [facility] [facility] 0497-B-207-E Insert Tibial Triathlon 6 H10mm Knee Bearing Condylar Stabilize Sterile - Sn/A - [id number] - Implanted (Left) Knee Inventory item: [employer] Insert Tibial Triathlon 6 H10mm Knee Bearing Condylar Stabilize Sterile 0959-R-245-E Model/Cat number: [id number] Serial number: N/A Car Oiler: [facility] Lot number: [id number] Device identifier: [id number] Device identifier type: GS1 As of 10/17/2021 Status: Implanted Stent [employer] Universa 6fr 28cm Firm Positioner Monofilament Tether Stent L26294 - [id number] -Implanted (Left) Ureter Inventory item: [employer] UNIVERSA 6FR 28CM FIRM POSITIONER MONOFILAMENT TETHER STENT Q24257Bbtro/Cat number: [id number] Car Oiler: [employer] Lot number: [id number] Size: 6x28 Device identifier: [id number] Device identifier type: GS1 As of 10/18/2023 Status: Implanted Type Not Specified [facility] 6197-9-010 Simplex P Full Dose Radiopaque Preblend Cement Bone Tobramycin - [id number] - Implanted (Right) Knee Inventory item: [facility] Simplex P Full Dose Radiopaque Preblend Cement Bone Ffqaebijjw3727-8-259 Model/Cat number: [id number] Car Oiler: [facility] Device identifier: [id number] Device identifier type: GS1 As of 09/30/2019 Status: Implanted [employer] Crushed Chip Frozen Graft 30ml Bone Cancellous [id number] - [id number] - Implanted Spine Lumbar Inventory item: [employer] Crushed Chip Frozen Graft 30ml Bone Cancellous [id number] Model/Cat number: [id number] Car Oiler: [employer] Lot number: [id number] As of 10/23/2023 Status: Implanted [employer] Inc Allograft Bone Putty 2.5cc 700-025 - [id number] - Implanted Spine Lumbar Inventory item: [employer] INC Allograft Bone Putty 2.5CC 700-025 Model/Cat number: [id number] Car Oiler: [employer] Lot number: [id number] Device identifier: [id number] Device identifier type: GS1 As of 10/23/2023 Status: Implanted [employer] Creo Od7.5 Mm L55 Mm Thread Polyaxial Spine Screw Bone Titanium 5146.1757 - [id number] - Implanted Spine Lumbar Inventory item: [employer] Creo Od7.5 Mm L55 Mm Thread Polyaxial Spine Screw Bone Titanium 5146.1757 Model/Cat number: [id number] Car Oiler: [employer] As of 10/23/2023 Status: Implanted [employer] Creo Od7.5 Mm L50 Mm Thread Polyaxial Spine Screw Bone Titanium 5146.1752 - [id number] - Implanted Spine Lumbar Inventory item: [employer] Creo Od7.5 Mm L50 Mm Thread Polyaxial Spine Screw Bone Titanium 5146.1752 Model/Cat number: [id number] Car Oiler: [employer] As of 10/23/2023 Status: Implanted [employer] Creo Thread Spinal Cap Locking Nonsterile 1119.0010 - [id number] - Implanted Spine Lumbar Inventory item: [employer] Creo Thread Spinal Cap Locking Nonsterile 1119.0010 Model/Cat number: [id number] Car Oiler: [employer] As of 10/23/2023 Status: Implanted [employer] Implant Spinal Sable 18k16of 7-14mm 15 Deg 1172.1s - [id number] - Implanted Spine Lumbar Inventory item: [employer] Implant Spinal Sable 13j72pr 7-14mm 15 Deg 1172.1S Model/Cat number: [id number] Car Oiler: [employer] As of 10/23/2023 Status: Implanted [employer] Creo 5.5mm 45mm Curve Daniel Spinal Titanium 1119.7045 - [id number] - Implanted Spine Lumbar Inventory item: [employer] Creo 5.5mm 45mm Curve Daniel Spinal Titanium 1119.7045 Model/Cat number: [id number] Car Oiler: [employer] As of 10/23/2023 Status: Implanted [employer] Rex Tulip Navalign 30mm 7fr 50mm 65cm Introducer Sheath [id number] - [id number] -Implanted Inventory item: [employer] Rex Tulip Navalign 30mm 7fr 50mm 65cm Introducer Sheath [id number]/Cat number: [id number] Car Oiler: [employer] Lot number: [id number] As of 11/09/2023 Status: Implanted SKIN Piercings Remaining: No Wound (LDAs) Type of Wound (LDA): (healing wound to buttocks- per LTC facility) SCREENINGS Joni index score: 30 PATIENT CARE PLANNING Advance Directives (For Healthcare) Have you reviewed your Advance Directive and is it valid for this stay?: Yes Advance Directive: Patient has advance directive, copy in chart Communication/Match Up Worker Needs Communication Needs: None Assistive Devices/DME: Eyeglasses, Manual wheelchair Hearing - Right Ear: Functional Hearing - Left Ear: Functional 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 You should leave your valuables and any jewelry at home. No metal or piercings are allowed in the operating room. You should bring your insurance card, a photo ID (example: Long Wall Shear Operator's License) and a method of payment [...] Pathway to Excellent Care by the followinglink: [email or web address] How To Prepare Your Skin For Surgery [...] Remove nail coverings, artificial nails and nail kittitian. Place clean linens on your bed the [...] questions, please call the CPAP Staff at [phone], Sunday-Sunday 8am-4:30pm. All patients should read the below section: COVID 19 Updates & Visitor Policy: Please access [email or web address] for the most updated information. Information on [facility]: Please view [email or web address] (Patient & Visitor Information) for additional details regarding Advanced Directive forms, AWARE, directions, parking information, lodging, Internet access, dining and more. Information on [facility] or [facility] [place] ([facility]): Please view [email or web address] (Patient and Visitor Information) for parking/directions and more. For MyChart information, to activate account or password recovery, please go to [email or web address] or call [phone] (toll-free: [phone]), Sun- Sunday 8am-5pm. Information for Suicide Prevention: National Suicide Prevention Lifeline (0-905- 546-EQVY (0579)) or call or text 785. Chat resources: [email or web address]. Surgery Times: For patients having surgery @ [facility] or [facility] ([facility]), if your surgeon's office has not notified you of your surgery time by NOON THE BUSINESS DAY BEFORE your surgery, please call [phone] and ask for your surgeon's office Dr. [...] 10:14 AM CDT Nephrolithiasis Case Notes 4/@0815- Hedley Stone will come out for the patient per Luciana via email.EF 01/31@0639- Laser conflict error sent msg to Luciana.EF EXCHANGE NEPHROSTOMY TUBE 02/27/2024 10:14 AM CDT Nephrolithiasis Case Notes 4/@0815- Hedley Stone will come out for the patient per Luciana via email.EF 01/31@0639- Laser conflict error sent msg to Luciana.EF EXCHANGE STENT - URETERAL 02/27/2024 10:14 AM CDT Nephrolithiasis Case Notes 4/@0815- Hedley Stone will come out for the patient per Luciana via email.EF 01/31@0639- Laser conflict error sent msg to Luciana.EF URETEROSCOPY 02/27/2024 10:14 AM CDT Nephrolithiasis Case Notes 4/@0815- Hedley Stone will come out for the patient [...] Enterococcus faecalis (.) Organism ESCHERICHIA COLI [facility] Organism ESCHERICHIA COLI [facility] Organism ENTEROCOCCUS FAECALIS [facility] Urine, bladder 02/27/2024 10 :57 AM CDT 02/27/2024 2:16 PM CDT Narrative [facility] - 03/02/2024 1:39 PM CDT Bladder Urine Indications for Culture:->Urology patient Specimen received in a sterile container. Testing performed by [facility] ([phone]) Organism Antibiotic Method Susceptibility Escherichia coli Ampicillin [...] AL ORDERABLES Final Result LAURA ZARAGOZA [facility] Department [place] [address] documented in this encounter Visit Diagnoses Diagnosis [...] 02/27/2024 documented in this encounter Care Teams Mechanical Technician Relationship Specialty Start Date End Date Rl Medina DO [address] [place] [address] PCP - General 08/09/17 05/25/24 documented as of this encounter
--- OUTSIDE RECORDS SUMMARY | 2024-11-05 22:57 | XMS_ITS | Encounter Summary ---
Author Organization [facility] Healthcare Address [address] [place] [address] Care Team Providers Care Civil Preparedness Officer Name Role Phone Rl Medina DO Primary Care Provider Reason for Referral * Diagnostic Imaging (Routine) - Closed Specialty Diagnoses / Procedures Referred By Contac t Referred To Contact Diagnoses S/P laminectomy with spinal fusion Procedures XR Spine Thoracic 2 Views Marcial Vu Jr., MD [address] [facility] 6A/6B/[address] [place] [address] Phone: tel: fax: [facility] [address] [place] [phone] Phone: tel: Referral ID Status Reason Start Date Expiration Date Visits Re quested Visits Authorized [id number] Closed 02/07/2024 03/08/2025 1 1 * Diagnostic Imaging (Routine) - Closed Specialty Diagnoses / Procedures Referred By Contac t Referred To Contact Diagnoses S/P laminectomy with spinal fusion Procedures XR Spine Lumbar 2 or 3 Views Marcial Vu Jr., MD [address] [facility] 6A/6B/[address], [place] [address] Phone: tel: fax: [facility] [address] [place] [phone] Phone: tel: Referral ID Status Reason Start Date Expiration Date Visits Re quested Visits Authorized [id number] Closed 02/07/2024 03/08/2025 1 1 Reason for Visit * Diagnostic Imaging (Routine) - Closed Specialty Diagnoses / Procedures Referred By Contac t Referred To Contact Diagnoses S/P laminectomy with spinal fusion Procedures XR Spine Lumbar 2 or 3 Views Marcial Vu Jr., MD [address] [facility] 6A/6B[address] [place] [address] Phone: tel: fax: [facility] [address] [place] [address] [place] [address] Phone: tel: Referral ID Status Reason Start Date Expiration Date Visits Re quested Visits Authorized [id number] Closed 02/07/2024 03/08/2025 1 1 Encounter Details Date Type Department Care Team (Latest Contact Info) Description 02/07/2024 7:30 AM CDT - 02/07/2024 11:59 PM CDT Hospital Encounter [facility] [address] [place] [address] [place] [address] S/P laminectomy with spinal fusion Discharge [...] Recorded In the past 12 months has [employer], gas, oil, or water [employer] threatened to shut off services in your [...] on file 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 Gender Identity Not on file Sexual Orientation Not on file 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
--- OUTSIDE RECORDS SUMMARY | 2024-11-05 22:57 | XMS_ITS | Encounter Summary ---
Author Organization [facility] Address [address] [place] [address] Phone Care Team Providers Care Mix Maker Name Role Phone Rl Medina DO Primary Care Provider Reason for Visit * Reason Onset Date Comments Med Management 02/07/2024 Appointment 02/07/2024 Encounter Details Date Type Department Care Team (Late st Contact Info) Description 02/07/2024 Telephone [facility] Orthopaedic Surgery [facility] Medical Office Building 4 [address] [place] [address] Marcial Vu Jr., MD Critical access hospital9 [facility] [place] [address] Med Management; Appointment Social History Tobacco Use Types Packs/Day Years Used Date Smoking Tobacco: Former Cigarettes 1 09 05 969 - 1979 Passive Smoke Exposure: Never Smokeless Tobacco: Never Alcohol Use Standard Drinks/Week Comments Yes 14 (1 standard drink = 0.6 oz pu re alcohol) social [facility] Utilities Answer Date Recorded In the past 12 months has [employer], gas, oil, or water [employer] threatened to shut off services in your [...] often do you attend chur ch or jehovah's witness services? 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 Also spoke with pt's Val. Scheduled Hira [...] call back from Tiffany Castro RN at [facility] where pt currently resides. Tiffany stated that the [facility] facility physician, Dr. Vinnie Cueva, discontinued pt's [...] RN, with the information I received from [facility]. Provided Tiffany with number for [facility] (ph. [phone]). Requested Tiffany contact me to discuss plan for pt's AC moving forward. Will also discuss with Dr. uV. * Telephone Encounter - Galina Franco RN [...] Left another VM for RN line at [facility]. Will continue to try to contact pt's [...] it was discontinued. Pt is currently at [facility]. Dr. Vu is concerned that ptis not currently on anticoagulation since pt is at very high risk for DVT/ PE. Pt is currently scheduled for hematology appt with Dr. Hampton on 04/11/24, which was soonest date available when scheduled. I spoke with Nathalie in Hematology ([phone]. [phone]) requesting to move up pt's 04/11 clinic [...] hear back from hematology. Left VM for [facility] where pt currently resides. Requested a call back to discuss when/ whypt stopped lovenox. Provided my direct number for a call back. documented in this encounter Plan of Treatment Not on file documented as of this encounter Visit Diagnoses Not on filedocumented in this encounter Care Teams Mix Maker Relationship Specialty Start Date End Date Albracht, Rl J., DO [address] [place] [address] PCP - General 08/09/17 05/25/24 documented as of this encounter
--- OUTSIDE RECORDS SUMMARY | 2024-11-05 22:57 | XMS_ITS | Encounter Summary ---
Author Organization [facility] Address [address] [place] [address] Phone Care Team Providers Care Sales Executive Insurance Name Role Phone Rl Medina DO Primary Care Provider Reason for Referral * Diagnostic Imaging (Routine) - Authorized Specialty Diagnoses / Procedures Referred By Manisha t Referred To Contact Diagnoses S/P laminectomy with spinal fusion Procedures XR Spine Cervical 2 or 3 Views Marcial Vu Jr., MD [address] [place] [address] Phone: tel: fax: External Order Referral ID Status Reason Start Date Expiration Date V isits Requested Visits Authorized [id number] Authorized 01/02/2024 01/31/2025 1 1 CH ENGINEER Reason for Visit * Reason Onset Date Comments Appointment 12/27/2023 Treatment Plan Update 12/27/2023 Encounter Details Date Type Department Care Team (Late st Contact Info) Description 12/27/2023 Telephone [facility] Orthopaedic Surgery [address] [facility] 1st Floor [address] [place] [address] Marcial Vu Jr., MD [address] [place] [address] Appointment; Treatment Plan Update Social History Tobacco Use Types Packs/Day Years Used Date Smoking Tobacco: Former Cigarettes 1 09 05 969 1979 Passive Smoke Exposure: Never Smokeless Tobacco: Never Alcohol Use Standard Drinks/Week Comments Yes 14 (1 standard drink = 0.6 oz pu re alcohol) social [facility] Utilities Answer Date Recorded In the [...] on file Legal Sex 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 Vu. Provided Ze with appt details. She will call me back if there are any issues/ concerns prior to Sunday. Contacted Val, pt's , and left with pt's appt details. CH ENGINEER * Telephone Encounter - Galina Franco, NARENDRA - 01/03/2024 4:17 PM CST Received call from Ze, gearcase assembler at [facility] where pt currently resides. eZ requesting a call back to schedule pt for a clinic appt. I returned Ze's call this afternoon since Iwas in clinic today. Left Ze stating I will be at my desk tomorrow and requested she call back then. Provided my number in VM.Will continue to follow up with CM. CH ENGINEER * Addendum Note - Galina Franco RN - 01/02/2024 10:12 AM CSTAddended by: GALINA FRANCO on: 01/02/2024 10:12 AM Modules accepted: Orders CH ENGINEER * Telephone Encounter - Galina Franco RN - 01/02/2024 9:36 AM CST Spoke with NARENDRA Allen at [place] where pt currently resides. Tiffany stated that facility is able to obtain x-rays at facility and then can send to our office for review. Tiffany requested I fax over XR orders and they will send us x-rays once completed. XRs faxed to [phone]. Contacted pt;s , Val, to update her on plan. Informed Val I will follow with the facility again if I do not hear from them within the next few days. Will then follow up with facility and Val once images are received and reviewed by Dr. Vu. Val to call back in the meantime with additional questions or concerns. CH ENGINEER * Telephone Encounter - Galina Franco RN - 12/28/2023 4:24 PM CST Left for [facility], pt's new facility, requesting a call back to discuss possibility of pt obtaining spine x-rays at/ near their facility and have them sent to our office for review. Provided my direct call back number. Will follow up again next week. CH ENGINEER * Telephone Encounter - Galina Franco RN - 12/27/2023 3:16 PM CST Pt's , Val, contacted me requesting to cancel pt's clinic appt with Dr. Vu on Sunday. Ptis being discharged from [facility] today to [facility]. Val stated that pt will need [...] when pt will be coming back to [facility] for follow ups with other specialists. Val states that pt has been making great progress in therapy at [facility] and is close to successfully completing transferred. Pt will continue to receive PT/OTat his new facility. Informed Val that I will cancel pt's appt with Dr. Vu on Sunday per herrequest. I will contact [facility] tomorrow to see if Hira can obtain spine x-rays at their facility, or locally, and then they can be sent to our office for Dr. Vu to review. I will contac t Val again once I have a plan made with [place], which should be within the next few days. ToldCyndmae I will also update Dr. Vu on plan and call her back if he has any additional questions or concerns. Pt is continuing to wear TLSO when OOB and will continue to do so until instructed otherwise by Dr. Vu. Val in agreement with plan. CH ENGINEER documented in this encounter Plan of Treatment Scheduled Orders Name Type Priority Associated Diagnoses Orde r Schedule XR Spine Cervical 2 or 3 Views Imaging Schedule Routine, Read Routine (OP Routine) S/P laminectomy with spinal fusion Expected: 01/02/2024, Expires: 01/02/2025 documented as of this encounter Visit Diagnoses Diagnosis S/P laminectomy with spinal fusion- Primary Arthrodesis status documented in this encounter Care Teams Sales Executive Insurance Relationship Specialty Start Date End Date Rl Medina DO [address] [place] [address] PCP - General 08/09/17 05/25/24 documented as of this encounter
--- OUTSIDE RECORDS SUMMARY | 2024-11-05 22:57 | XMS_ITS | Encounter Summary ---
Author Organization [facility] Healthcare Address [address] [place] [address] Care Team Providers Care Boiler Inspector Name Role Phone Rl Medina DO Primary Care Provider [phone] Reason for Referral * Neurology (Routine) - Closed Specialty Diagnoses / Procedures Referred By Charlesac t Referred To Contact Diagnoses Seizures (HCC) Procedures Ambulatory EEG -[facility] (All Locations) Adri Lester MD Phone: tel: fax: [facility] (All Locations) Referral ID Status Reason Start Date Expiration Date Visits Re quested Visits Authorized [id number] Closed 02/05/2024 03/06/2025 1 1 Reason for Visit * Neurology (Routine) - Closed Specialty Diagnoses / Procedures Referred By Contrussell gale Referred To Contact Diagnoses Seizures (HCC) Procedures Ambulatory EEG -[facility] (All Locations) Adri Lester MD Phone: tel: fax: [facility] (All Locations) Referral ID Status Reason Start Date Expiration Date Visits Re quested Visits Authorized [id number] Closed 02/05/2024 03/06/2025 1 1 Encounter Details Date Type Department Care Team (Latest Contact Info) Description 04/08/2024 9:18 AM CDT - 04/08/2024 11:59 PM CDT Hospital Encounter [facility] [address] [place] [address] Senthil Murillo Seizures (HCC) Discharge Disposition: Discharge to home or self care Social History Tobacco Use Types Packs/Day Years Used Date Smoking Tobacco: Former Cigarettes 1 09 05 961979 Passive Smoke Exposure: Never Smokeless Tobacco: Never Alcohol Use Standard Drinks/Week Comments Yes 14 (1 standard drink = 0.6 oz pu re alcohol) social [facility] Utilities Answer Date Recorded In the past 12 months has [employer], gas, oil, or water [employer] threatened to shut off services in your [...] week 12/27/2023 How often do you attend [facility] or baptism services? 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 file Not [...] ound healing Take 1 tablet by mouth locomotive driver before breakfast ondansetron ODT (ZOFRAN-ODT) 4 [...] 1 tablet (20 mEq total) by mouth locomotive driver before breakfast 4 senna-docusate (PERICOLACE) 8.6-50 [...] in this encounter Results * Ambulatory EEG -[facility] (All Locations) (04/09/2024 11:05 AM CDT) Anatomical Region Laterality Modality EEG Narrative 04/09/2024 4:21 PM CDT Ambulatory EEG Report Patient Name: Hira Evans [facility] Record Number (MRN): [id number] Mary Pérez Record: [id number] Date of (): 1950 EEG Date: 04/08/2024 [...] 24 channel EEG recording acquired on a [employer] digital ambulatory EEG acquisition system. Scalp electrodes [...] convulsions documented in this encounter Care Teams Boiler Inspector Relationship Specialty Start Date End Date Rl Medina DO [address] [place] [address] PCP - General 08/09/17 05/25/24 documented as of this encounter
--- OUTSIDE RECORDS SUMMARY | 2024-11-05 22:57 | XMS_ITS | Encounter Summary ---
Author Organization [facility] Address [address] [place] [address] Phone Care Team Providers Care Customer Service Security Officer Name Role Phone Rl Medina DO Primary Care Provider [phone] Reason for Referral * Neurology (Routine) - Closed Specialty Diagnoses / Procedures Referred By Manisha gale Referred To Contact Diagnoses Seizures (HCC) Procedures Ambulatory EEG -[facility] (All Locations) Adri Lester MD Phone: tel: fax: [facility] (All Locations) Referral ID Status Reason Start Date Expiration Date Visits Re quested Visits Authorized [id number] Closed 02/05/2024 03/06/2025 1 1 Reason for Visit * Reason Comments New Patient * Consultation (Routine) - Closed Specialty Diagnoses / Procedures Referred By Manisha gale Referred To Contact Neurology Diagnoses Seizures, generalized convulsive (HCC) Marcial Vu Jr., MD [address] [facility] [address] [place] [address] Phone: tel: fax: [facility] Epilepsy [address] [facility] 6th [place] [address] [place] [address] Phone: tel: fax: Referral ID Status Reason Start Date Expiration Date V isits Requested Visits Authorized [id number] Closed Specialty Services Required 10/25/2023 11/23/2024 1 1 Encounter Details Date Type Department Care Team (Late st Contact Info) Description 02/05/2024 2:00 PM CDT Office Visit [facility] Epilepsy [address] [facility] 6th [place] [address] [place] [address] Jose Elias Osorio MD PhD [address] [place] [address] Seizures, generalized convulsive (HCC); Subdural hematoma (HCC); Seizures (HCC) Social History Tobacco Use Types Packs/Day Years Used Date Smoking Tobacco: Former Cigarettes 1 11 1 969 - 1979 Passive Smoke Exposure: Never Smokeless Tobacco: Never Alcohol Use Standard Drinks/Week Comments Yes 14 (1 standard drink = 0.6 oz pu re alcohol) social [facility] Utilities Answer Date Recorded In the past 12 months has [employer], gas, oil, or water [employer] threatened to shut off services in your [...] file Legal Sex 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 Patient was maintained on several DRIED YEAST SUPERVISOR acting medications at that time for pain [...] 2 (two) times a day, Disp:, Rfl: tmwdsufp-vrasktbvz-vroqjex HMB 7-7-1.5 gram powder in packet, Take [...] history of prostate cancer, Pneumonia, Pulmonary embolism ([facility]), and Seasonal allergies. He has no past medical history of Acute respiratory failure requiring reintubation (CMS/HCC) ([facility]),Awareness under anesthesia, Delayed emergence from general anesthesia, [...] second occurred in the setting of multiple DRIED YEAST SUPERVISOR active medications and had atypical features. We discussed weaning Keppra as previously planned after he has completed his scheduled surgery. We will obtain an ambulatory EEG prior to weaning. Jose Elias Osorio MD PhD Professor of Neurology documented in this encounter Plan of Treatment Not on file documented as of this encounter Results * Ambulatory EEG -[facility] (All Locations) (04/09/2024 11:05 AM CDT) Anatomical Region Laterality Modality EEG Narrative 04/09/2024 4:21 PM CDT Ambulatory EEG Report Patient Name: Hira [facility] Medical Record Number (MRN): [id number] [facility] Record: [id number] Date of (): 1950 EEG Date: 04/08/2024 Ordering Provider: Adir Lester MD CC: Rl Medina Start Time: [...] 24 channel EEG recording acquired on a [employer] digital ambulatory EEG acquisition system. Scalp electrodes [...] 1 tablet (20 mEq total) by mouth basting marker before breakfast 01/22/2024 hydroCHLOROthiaz adele (HYDRODIURIL) 12.5 mg tablet 01/21/2024 4 added in this encounter Orders Outpatient Referral Count Last Ordered Date Fir st Ordered Date AMB REFERRAL TO NEUROLOGY 2 02/05/2024 documented in this encounter Care Teams Customer Service Security Officer Relationship Specialty Start Date End Date Rl Medina DO [address] [place] [address] PCP - General 08/09/17 05/25/24 documented as of this encounter
--- OUTSIDE RECORDS SUMMARY | 2024-11-05 22:57 | XMS_ITS | Encounter Summary ---
Author Organization [facility] Address [address] [place] [address] Phone Care Team Providers Care Sand Filler Name Role Phone Rl Medina DO Primary [...] Vena Cava Filter Marcial Vu Jr., MD [address] [place] [address] Phone: tel: fax: [address] [phone] Referral ID Status Reason Start Date Expiration Date Visits Re quested Visits Authorized [id number] Closed 04/08/2024 05/08/2025 1 1 Encounter Details Date Type Department Care Team (Late st Contact Info) Description 04/07/2024 Telephone [facility] Orthopaedic Surgery [address] [place] [address] Medical Office Building [address] [place] [address] Marcial Vu Jr., MD [address] [place] [address] Social History Tobacco Use Types Packs/Day Years Used Date Smoking Tobacco: Former Cigarettes 1 09 05 969 - 1979 Passive Smoke Exposure: Never Smokeless Tobacco: Never Alcohol Use Standard Drinks/Week Comments Yes 14 (1 standard drink = 0.6 oz pu re alcohol) social [facility] Utilities Answer Date Recorded In the [...] on file 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 Albarado placed pt's IVC filter on 11/09/23 while pt was admitted at [facility]. Pt has no follow up scheduled for evaluation and further treatment for this. Spoke with MARIAMA Cavazos transportation project manager, who recommended to place order for IR remove vena cava filter and then pt will be contacted by their dept to schedule appt per referral list in [facility]. Macy stated that order should be [...] was obtained. Prior to beginning the procedure, [place] Protocol was performed to confirm the patient's [...] guidance and a guidewire passed centrally. A loan auditor fluoroscopic image was obtained. A 6 Albanian vascular sheath was inserted into the right [...] was obtained. Prior to beginning the procedure, [place] Protocol was performed to confirm the patient's [...] guidance and a guidewire passed centrally. A loan auditor fluoroscopic image was obtained. A 6 Albanian vascular sheath was inserted into the right [...] embolism documented in this encounter Care Teams Sand Filler Relationship Specialty Start Date End Date Rl Medina DO [address] [place] [address] PCP - General 08/09/17 05/25/24 documented as of this encounter
--- OUTSIDE RECORDS SUMMARY | 2024-11-05 22:57 | XMS_ITS | Encounter Summary ---
Author Organization [facility] Address [address] [place] [address] Phone Care Team Providers Care Silhouette Artist Name Role Phone Rl Medina DO Primary Care Provider Reason for Referral * Diagnostic Imaging (Routine) - Closed Specialty Diagnoses / Procedures Referred By Contac t Referred To Contact Diagnoses S/P laminectomy with spinal fusion Procedures XR Spine Thoracic 2 Views Marcial Vu Jr., MD [address], [place] [address] Phone: tel: fax: [facility] Radiology [address] [place] [address] Phone: tel: Referral ID Status Reason Start Date Expiration Date Visits Re quested Visits Authorized [id number] Closed 02/07/2024 03/08/2025 1 1 * Diagnostic Imaging (Routine) - Closed Specialty Diagnoses / Procedures Referred By Contac t Referred To Contact Diagnoses S/P laminectomy with spinal fusion Procedures XR Spine Lumbar 2 or 3 Views Marcial Vu Jr., MD [address]A [place] [address] Phone: tel: fax: [facility] [address] [facility] [address] [place] [address] Phone: tel: Referral ID Status Reason Start Date Expiration Date Visits Re quested Visits Authorized [id number] Closed 02/07/2024 03/08/2025 1 1 Reason for Visit * Reason Comments Return Patient Encounter Details Date Type Department Care Team (Late st Contact Info) Description 02/07/2024 8:00 AM CDT Office Visit [facility] Orthopaedic Surgery [address] [facility] Medical Office Building [address] [place] [address] Marcial Vu Jr., MD [address] [facility] [place] [address] S/P laminectomy with spinal fusion (Primary Dx) Social History Tobacco Use Types Packs/Day Years Used Date Smoking Tobacco: Former Cigarettes 1 11 1 969 1979 Passive Smoke Exposure: Never Smokeless Tobacco: Never Alcohol Use Standard Drinks/Week Comments Yes 14 (1 standard drink = 0.6 oz pu re alcohol) social [facility] Utilities Answer Date Recorded In the past 12 months has [employer], gas, oil, or water [employer] threatened to shut off services in your [...] often do you attend chur ch or moravian services? 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 Important Phone Numbers: Galina Franco, Nurse Coordinator to Dr. Vu: [phone] Appointment Line: [phone] For medical emergencies, please call 911. documented [...] hematoma and durotomy. [facility]. He was hospitalized in early January [...] post thoracolumbar decompression. He remains in a [facility] facility and has recurrent bilateral lower extremity DVTs. He is not on anticoagulation currently. Treatment Plan We are going to touch base with his [facility] facility about anticoagulation given his recurrent lower extremity DVTs. We are also going to be in contact with Hematology regarding a plan for anticoagulation and the IVC filter currently and over the nursing home. He will continue compressive lower extremity wraps [...] and in agreement. Marcial Vu Jr., MD City Council Member Department of Orthopaedic Surgery Division of Spine Surgery [facility] [place] House Visitor done by [employer]; therefore, variances and [...] 4 added in this encounter Care Teams Silhouette Artist Relationship Specialty Start Date End Date Rl Medina DO [address] [place] [address] PCP - General 08/09/17 05/25/24 documented as of this encounter
--- OUTSIDE RECORDS SUMMARY | 2024-11-05 22:57 | XMS_ITS | Encounter Summary ---
Author Organization [facility] Healthcare Address [address] [place] [address] Care Team Providers Care Communication Studies Professor Name Role Phone Rl Medina DO Primary Care Provider Reason for Visit * Neurology (Routine) - Closed Specialty Diagnoses / Procedures Referred By Contac t Referred To Contact Diagnoses Seizures (HCC) Procedures Ambulatory EEG -[facility] (All Locations) Adri Lester MD Phone: tel: fax: [facility] (All Locations) Referral ID Status Reason Start Date Expiration Date Visits Re quested Visits Authorized [id number] Closed 02/05/2024 03/06/2025 1 1 Encounter Details Date Type Department Care Team (Latest Contact Info) Description 04/09/2024 11:02 AM CDT - 04/09/2024 11:59 PM CDT Hospital Encounter [facility] [address] [place] [address] Madan Haider [place] Discharge Disposition: Discharge to [...] Recorded In the past 12 months has [employer], gas, oil, or water company threatened [...] on file 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 Gender Identity Not on file Sexual Orientation Not on file 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 on file Not [...] Take 1 tablet by mouth early childhood services coordinator before breakfast ondansetron ODT (ZOFRAN-ODT) 4 [...] (20 mEq total) by mouth early childhood services coordinator before breakfast 4 senna-docusate (PERICOLACE) 8.6-50 [...] in this encounter Results * Ambulatory EEG -[facility] (All Locations) (04/09/2024 11:05 AM CDT) Anatomical Region Laterality Modality EEG Narrative 04/09/2024 4:21 PM CDT Ambulatory EEG Report Patient Name: Hira [facility] Medical Record Number (MRN): [id number] [facility] Record: [id number] Date of (): 1950 EEG Date: 04/08/2024 [...] 24 channel EEG recording acquired on a Bionym digital ambulatory EEG acquisition system. Scalp electrodes [...] on filedocumented in this encounter Care Teams Communication Studies Professor Relationship Specialty Start Date End Date Rl Medina DO [address] [place] [address] PCP - General 08/09/17 05/25/24 documented as of this encounter
--- OUTSIDE RECORDS SUMMARY | 2024-11-05 22:57 | XMS_ITS | Encounter Summary ---
Author Organization [facility] Healthcare Address [address] [place] [address] Care Team Providers Care Elevator Worker Name Role Phone Rl Medina DO Primary Care Provider Encounter Details Date Type Department Care Team (Late st Contact Info) Description 01/31/2024 [address] [facility] Radiology [facility] [address] [place] [address] Marcial Gaviria RN Social History Tobacco Use Types Packs/Day Years Used Date Smoking Tobacco: Former Cigarettes 1 09 05 969 1979 Passive Smoke Exposure: Never Smokeless Tobacco: Never Alcohol Use Standard Drinks/Week Comments Yes 14 (1 standard drink = 0.6 oz pu re alcohol) social C Utilities Answer Date Recorded In the past 12 months has [employer], gas, oil, or water [employer] threatened to shut off services in your [...] file Legal Sex Male 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
--- OUTSIDE RECORDS SUMMARY | 2024-11-05 22:57 | XMS_ITS | Encounter Summary ---
Author Organization [facility] Address [address] [place] [address] Phone Care Team Providers Care Rate Setter Name Role Phone Rl Medina DO Primary Care Provider Encounter Details Date Type Department Care Team (Late st Contact Info) Description 03/05/2024 Telephone [facility] Surgery [address] [place] [address] Luciana Chaves CMA Social History Tobacco Use Types Packs/Day Years Used Date Smoking Tobacco: Former Cigarettes 1 09 05 969 - 1979 Passive Smoke Exposure: Never Smokeless Tobacco: Never Alcohol Use Standard Drinks/Week Comments Yes 14 (1 standard drink = 0.6 oz pu re alcohol) social [facility] Utilities Answer Date Recorded In the past 12 months has [employer], gas, oil, or water [employer] threatened to shut off services in your [...] file Legal Sex Male 9:07 PM HEALTH EVALUATOR Gender Identity Not on file Sexual Orientation Not on file 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
--- OUTSIDE RECORDS SUMMARY | 2024-11-05 22:58 | XMS_ITS | Encounter Summary ---
Author Organization [facility] Healthcare Address [address] [place] [address] Care Team Providers Care Water Technician Name Role Phone Rl Medina DO Primary Care Provider Encounter Details Date Type Department Care Team (Late st Contact Info) Description 12/11/2023 Orders Only [facility] [phone] Unknown, Notinfile Social History Tobacco Use Types Packs/Day Years Used Date Smoking Tobacco: Former Cigarettes 1 11 969 - 1979 Passive Smoke Exposure: Never Smokeless Tobacco: Never Alcohol Use Standard Drinks/Week Comments Yes 14 (1 standard drink = 0.6 oz pu re alcohol) social C Utilities Answer Date Recorded In the past 12 months has [employer], gas, oil, or water [employer] threatened to shut off services in your [...] often do you attend chur ch or presybeterian services? 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 Not on file Not on file documented as of this encounter Plan of Treatment Not on file documented as of this encounter Procedures Procedure Name Priority Date/Time Associated Diagnosis Comments CS GLUCOSE Routine Gen Lab 12/11/2023 5:48 AM COIL FINISHER EGFR Routine Gen Lab 12/11/2023 5:48 AM COIL FINISHER DIFFERENTIAL AUTO Routine Gen Lab 12/11/2023 5:4 8 AM COIL FINISHER COMPREHENSIVE METABOLIC PANEL WITHOUT GLUCOSE (OUTREACH) Routine Gen Lab 12/11/2023 5:48 AM COIL FINISHER CBC WITH AUTO DIFFERENTIAL Routine Gen Lab 12/11/2023 5:48 AM COIL FINISHER VITAMIN D 25 HYDROXY Routine Gen Lab 12/11/2023 5:48 AM COIL FINISHER documented in this encounter Results * eGFR (12/11/2023 5:48 AM COIL FINISHER) eGFR >90 >=60 mL/min/1. 73 m2 [facility] Comment: Interpretive Data Reference Interval Normal [...] was last reviewed 2021. Testing performed by: [facility], [address] [place]., [address] Blood 12/11/2023 5:48 AM COIL FINISHER 12/11/2023 7:53 AM COIL FINISHER us Notinfile Unknown LAB BLOOD ORDERABLES Final Res ult [facility] Department [place] [address] * (ABNORMAL) Comprehensive metabolic panel, without glucose (Outreach) (12/11/2023 5:48 AM COIL FINISHER) Sodium 142 135 - 145 mmol/L [facility] Comment:Testing performed by : [facility], [address] [facility], [address] Potassium, pl 3.4 3.3 - 4.9 mmol/L [facility] Comment:Testing performed by : [facility], [address] [facility], [address] Chloride 105 97 - 110 mmol/L [facility] Comment:Testing performed by : [facility], [address] [facility], [address] CO2 29 22 - 32 mmol/L [facility] Comment:Testing performed by : [facility], [address] [facility], [address] Anion gap 8 2 - 15 mmol/L [facility] Comment:Testing performed by : [facility], [address] [facility], [address] BUN 22 6 - 25 mg/dL [facility] Comment:Testing performed by : [facility], [address] [facility], [address] Creatinine 0.81 0.80 - 1.30 mg/dL [facility] Comment:Testing performed by : [facility], [address] [facility], [address] Calcium 9.1 8.5 - 10.3 mg/dL [facility] Comment:Testing performed by : [facility], [address] [facility], [address] Protein, pl 6.5 6.5 - 8.5 g/dL [facility] Comment:Testing performed by : [facility], [address] [facility], [address] Albumin 3.0(L) 3.5 - 5.0 g/dL [facility] Comment:Testing performed by : [facility], [address] [facility], [address] Bilirubin, total 0.3 0.1 - 1.2 mg/dL [facility] Comment:Testing performed by : [facility], [address] [facility], [address] Alk phos 124 40 - 130 Units/L [facility] Comment:Testing performed by : [facility], [address] [facility], [address] AST 22 10 - 50 Units/L [facility] Comment:Testing performed by : [facility], [address] [facility], [address] ALT 25 7 - 55 Units/L [facility] Comment:Testing performed by : [facility], [address] [place] [address], [address] Blood 12/11/2023 5:48 AM COIL FINISHER 12/11/2023 7:46 AM COIL FINISHER us Notinfile Unknown LAB BLOOD ORDERABLES Final Res ult [facility] Department [place] [address] * Vitamin D 25 hydroxy (12/11/2023 5:48 AM COIL FINISHER) Vitamin D 25-OH 50 30 - 80 ng/mL [facility] Comment:Testing performed by : [facility], [address] [place] [address]., [address] Blood 12/11/2023 5:48 AM COIL FINISHER 12/11/2023 7:46 AM COIL FINISHER us Notinfile Unknown LAB BLOOD ORDERABLES Final Res ult Performing Organization Address [facility] Co de Phone Number [facility] Department [place] [address] * CS GLUCOSE (12/11/2023 5:48 AM COIL FINISHER) Glucose 98 70 - 199 mg/dL [facility] Comment: Interpretive Data Fasting glucose >/= [...] was last revised 2022. Testing performed by: [facility], [address] [place] [address]., [address] Blood 12/11/2023 5:48 AM COIL FINISHER 12/11/2023 7:46 AM COIL FINISHER us Notinfile Unknown LAB BLOOD ORDERABLES Final Res ult Performing Organization Address [facility] Co de Phone Number [facility] Department [place] [employer] [address] * Differential, auto (12/11/2023 5:48 AM COIL FINISHER) Neutrophil abs 2.7 1.5 - 6.5 K/cumm [facility] Comment:Testing performed by : [facility], [address] [place]., [address] Imm gran abs 0.0 0.0 - 0.1 K/cumm [facility] Comment:Testing performed by : [facility], [address] [place]., [address] Lymphocyte abs 1.4 0.8 - 3.3 K/cumm [facility] Comment:Testing performed by : [facility], [address] [place]., [address] Monocyte abs 0.5 0.2 - 0.8 K/cumm [facility] Comment:Testing performed by : [facility], [address] [place]., [address] Eosinophil abs 0.2 0.0 - 0.5 K/cumm [facility] Comment:Testing performed by : [facility], [address] [place]., [address] Basophil abs 0.0 0.0 - 0.1 K/cumm [facility] Comment:Testing performed by : [facility], [address] [place]., [address] Neutrophil pct 56.3 % [facility] Comment: Interpretive Data Percent cell count reference ranges are not reported, since discordance with absolute values may lead to misinterpretation of CBC data. Current Interpretive Data was last revised on 2018. Testing performed by: [facility], [address] [place]., [address] Imm gran pct 0.8 % [facility] Comment: Interpretive Data Percent cell count reference ranges are not reported, since discordance with absolute values may lead to misinterpretation of CBC data. Current Interpretive Data was last revised on 2018. Testing performed by: [facility], [address] [place]., [address] Lymphocyte pct 29.1 % [facility] Comment: Interpretive Data Percent cell count reference ranges are not reported, since discordance with absolute values may lead to misinterpretation of CBC data. Current Interpretive Data was last revised on 2018. Testing performed by: [facility], [address] [place]., [address] Monocyte pct 10.3 % [facility] Comment: Interpretive Data Percent cell count reference ranges are not reported, since discordance with absolute values may lead to misinterpretation of CBC data. Current Interpretive Data was last revised on 2018. Testing performed by: [facility], [address] [place]., [address] Eosinophil pct 3.1 % [facility] Comment: Interpretive Data Percent cell count reference ranges are not reported, since discordance with absolute values may lead to misinterpretation of CBC data. Current Interpretive Data was last revised on 2018. Testing performed by: [facility], [address] [place]., [address] Basophil pct 0.4 % [facility] Comment: Interpretive Data Percent cell count reference ranges are not reported, since discordance with absolute values may lead to misinterpretation of CBC data. Current Interpretive Data was last revised on 2018. Testing performed by: [facility], [address] [place] [address]., [address] Blood 12/11/2023 5:48 AM COIL FINISHER 12/11/2023 7:46 AM COIL FINISHER us Notinfile Unknown LAB BLOOD ORDERABLES Final Res ult [facility] Department [place] [address] * (ABNORMAL) CBC with auto differential (12/11/2023 5:48 AM COIL FINISHER) WBC 4.8 3.8 - 9.9 K/cumm [facility] Comment:Testing performed by : [facility], [address] [place] [address]., [address] Hgb 9.2(L) 13.0 - 17.5 g/dL [facility] Comment:Testing performed by : [facility], [address] [facility], [address] Hct 28.6(L) 38.9 - 50.3 % [facility] Comment:Testing performed by : [facility], [address] [facility], [address] Plt 321 150 - 400 K/cumm [facility] Comment:Testing performed by : [facility], [address] [facility], [address] MPV 10.5 9.1 - 12.3 fL [facility] Comment:Testing performed by : [facility], [address] [facility], [address] RBC 3.00(L) 4.30 - 5.80 M/cumm [facility] Comment:Testing performed by : [facility], [address] [facility], [address] MCV 95.3 81.3 - 96.4 fL [facility] Comment:Testing performed by : [facility], [address] [facility], [address] MCH 30.7 27.1 - 33.3 pg [facility] Comment:Testing performed by : [facility], [address] [facility], [address] MCHC 32.2(L) 32.3 - 35.7 g/dL [facility] Comment:Testing performed by : [facility], [address] [facility], [address] RDW CV 16.0(H) 11.1 - 14.9 % [facility] Comment:Testing performed by : [facility], [address] [place] [address], [address] RDW SD 56.3(H) 35.7 - 48.1 fL [facility] Comment:Testing performed by : [facility], [address] [facility], [address] NRBC abs 0.00 0.00 - 0.01 K/cumm [facility] Comment:Testing performed by : [facility], 1 [facility], [place]., [address] Blood 12/11/2023 5:48 AM COIL FINISHER 12/11/2023 7:46 AM COIL FINISHER us Notinfile Unknown LAB BLOOD ORDERABLES Final Res ult [facility] Department [place] [address] documented in this encounter Visit Diagnoses Not on filedocumented in this encounter Care Teams Water Technician Relationship Specialty Start Date End Date Rl Medina DO [address] [place] [address] PCP - General 08/09/17 05/25/24 documented as of this encounter
--- OUTSIDE RECORDS SUMMARY | 2024-11-05 22:58 | XMS_ITS | Encounter Summary ---
Author Organization [facility] Address [address] [place] [address] Phone Care Team Providers Care Senior Data Scientist Name Role Phone Rl Medina DO Primary Care Provider Reason for Visit * Reason Onset Date Comments Appointment 12/11/2023 Encounter Details Date Type Department Care Team (Late st Contact Info) Description 12/11/2023 Telephone [facility] Orthopaedic Surgery [address] [facility] 6th [place] [address] [place] [address] Marcial Vu Jr., MD [address] [facility] [address] [place] [address] Appointment Social History Tobacco Use Types Packs/Day Years Used Date Smoking Tobacco: Former Cigarettes 1 09 05 969 - 1979 Passive Smoke Exposure: Never Smokeless Tobacco: Never Alcohol Use Standard Drinks/Week Comments Yes 14 (1 standard drink = 0.6 oz pu re alcohol) social [facility] Utilities Answer Date Recorded In the past 12 months has [employer], gas, oil, or water company threatened to [...] attend chur ch or quaker services? Never 11/30/2023 Do you belong to any clubs o r organizations such as scientology groups, unions, fraternal or athletic groups, or [...] in a group home (including now)? 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 [facility] requesting appt to be scheduled at [facility] due to location. Scheduled pt for clinic appt with Dr. Vu on 12/31 at 9:40am. At [facility]- Appt details provided to Daily. She will relay details to pt if he is discharged from [facility] priorto appt date. FRAMING MANAGER documented in this encounter Plan of Treatment Not on file documented as of this encounter Visit Diagnoses Not on filedocumented in this encounter Care Teams Senior Data Scientist Relationship Specialty Start Date End Date Rl Medina DO [address] [place] [address] PCP - General 08/09/17 05/25/24 documented as of this encounter
--- OUTSIDE RECORDS SUMMARY | 2024-11-05 22:58 | XMS_ITS | Encounter Summary ---
Author Organization [facility] Healthcare Address [address] [place] [address] Care Team Providers Care Excelsior Machine Operator Name Role Phone Rl Medina DO Primary Care Provider Reason for Visit * Auth/Cert (Routine) Specialty Diagnoses / Procedures Referred By Contac t Referred To Contact Diagnoses Kidney stone Kidney stone [N20.0] Procedures [place] CYSTOURETHROSCOPY CYSTOSCOPY PYELOGRAM - RETROGRADE URETEROSCOPY LITHOTRIPSY - LASER EXCHANGE STENT - URETERAL Referral ID Status Reason Start Date Expiration Date Visits Re quested Visits Authorized [id number] 1 1 Encounter Details Date Type Department Care Team (Latest Contact Info) Description 12/25/2023 5:45 AM DIESEL MAINTENANCE ELECTRICIAN - 12/27/2023 3:13 PM DIESEL MAINTENANCE ELECTRICIAN Hospital Encounter [facility] [address] [place] [address] Temo Mcintosh MD [address] [place] [address] Nephrolithiasis (Primary Dx) Discharge Disposition: Discharge to SNF Social History Tobacco Use Types Packs/Day Years Used Date Smoking Tobacco: Former Cigarettes 1 11 96 - 1979 Passive Smoke Exposure: Never Smokeless Tobacco: Never Alcohol Use Standard Drinks/Week Comments Yes 14 (1 standard drink = 0.6 oz pu re alcohol) social C Utilities Answer Date Recorded In the past 12 months has [employer], gas, oil, or water saperatec threatened to shut off services in your [...] file Legal Sex Male 9:07 PM DIESEL MAINTENANCE ELECTRICIAN Gender Identity Not on file Sexual Orientation Not on file 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 Not on file Not on file Not on file documented as of this encounter Last Filed Vital Signs Vital Sign Reading Time Taken Comments Blood Pressure 116/66 12/27/2023 11:40 AM DIESEL MAINTENANCE ELECTRICIAN Pulse 65 12/27/2023 11:40 AM DIESEL MAINTENANCE ELECTRICIAN Temperature 37.3 ??C (99.1 ??F) 12/27/2023 11:[address] Respiratory Rate 16 12/27/2023 4:25 AM DIESEL MAINTENANCE ELECTRICIAN Oxygen Saturation 99% 12/27/2023 11:40 AM DIESEL MAINTENANCE ELECTRICIAN Inhaled Oxygen Concentration - - Weight 90.7 kg (200 lb) 12/11/2023 5:08 PM DIESEL MAINTENANCE ELECTRICIAN Height 172.7 cm (5' 8 ) 12/25/2023 10:25 AM DIESEL MAINTENANCE ELECTRICIAN Body Mass Index 30.41 12/24/2023 1:58 PM DIESEL MAINTENANCE ELECTRICIAN documented in this encounter Discharge Summaries * Angela Paz MD - 12/27/2023 11:39 AM CST Inpatient Discharge Summary BRIEF OVERVIEW Admitting Provider: Temo Mcintosh MD Discharge Provider: Temo Mcintosh MD Primary Care Physician at Discharge: Rl Medina DO [phone] Admission Date: 12/25/2023 Discharge Date: 12/27/2023 Admission Location: [facility] Problems/Diagnoses: Principal Problem: Kidney stone Active Problems: [...] Nephrostomy Left Result Date: 12/26/2023 Successful left 10-Niuean percutaneous nephrostomy tube placement. PLAN: Patient needs [...] Temo Mcintosh MD at 12/27/2023 12:38 PM DIESEL MAINTENANCE ELECTRICIAN EL MAINTENANCE ELECTRICIAN EL MAINTENANCE ELECTRICIAN documented in this encounter Discharge Instructions * Discharge Instructions* Angela Paz MD - 12/25/2023 7:03 AM DIESEL MAINTENANCE ELECTRICIAN Diagnosis:Left ureteral stricture Procedure:Left nephrostomy tube placement [...] draining. To contact an Interventional Radiologist at [facility] call [phone] Sunday through Sunday from 7:30am-4:30pm. At all other times call [phone] and ask that the Interventional Radiologist be paged. To contact an Interventional Radiologist at [facility] call [phone] Sunday through Sunday from 7:30am-3:30pm. Special instructions: [...] your condition worsens. Temo Mcintosh MD Urology [employer] [facility] [employer] [facility], [address] [place] [address] For appointments: [phone] My certified physical therapist assistant - Luciana [phone] For after hours emergencies: [phone] EL MAINTENANCE ELECTRICIAN EL MAINTENANCE ELECTRICIAN EL MAINTENANCE ELECTRICIAN EL MAINTENANCE ELECTRICIAN documented in this encounter Medications at Time [...] CST 12/25/23 1401 Discharge Summary Discharge Disposition [facility] facility (short term care) Specify Facility [facility] Contact Number Report: [phone] Discharge Records Chart Copied Discharge Additional Assistance Does the patient need discharge transport arranged? Yes Has discharge transport been arranged? Yes Details of Transportation [facility] [phone] trip #[phone] D/C Transport Anticipated Date 12/27/23 D/C Transport [...] at this time. Patient has been acceptedto [facility]. CM spoke with the patient/family, admissions, medical [...] Patient/family informed patient may require ambulance transport. transportation project manager informed patient/family that even if the patient's insurance benefit includes ambulance transport, it may not cover the full cost of the transportation. The patient may be responsible for any pbz-ce-slsdxy cost, includingmileage beyond the nearest appropriate facility. Patient/family voiced understanding. EL MAINTENANCE ELECTRICIAN * Estella Maxwell RN - 12/27/2023 8:24 AM CST 12/27/23 0824 Communications Important Message from Medicare notice given to patient? Yes IM letter completed with patient/telephone claims representative at bedside. Patient/telephone claims representative were informed ofthe planned discharge date, the date the beneficiary's financial liability begins, the beneficiary's appeal rights, and how and when to initiate an appeal. Patient/telephone claims representative were provided a copy of the IM letter and IM letter was placed in unit???s designated medical record bin to be uploaded into the patient???s chart. EL MAINTENANCE ELECTRICIAN * Tavo Vance MD - 12/27/2023 6:30 AM CST Images from the original note were not included. 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 Status post left 10Fr Keeler nephrostomy tube on 12/26/2023. Interval History: No acute events. Not endorsing pain. Exam: General: alert & oriented X 3, NAD Skin: warm and well perfused C/V: normal rate and rhythm Pulm: normal respirations, symmetric chest rise, nonlabored breathing Abdomen: soft, NT/ND, left flank 10 Fr Keeler nephrostomy tube draining pink/blood-tinged urine. Shook draining [...] left ureteral stricture. Status post left 10Fr Keeler nephrostomy tube on 12/26/2023. - Please continue to document output - IR follow-up scheduled for 02/05/2024 for possible internalization or nephrostomy tube change Plan discussed with IR attending, Dr. Crum. Tavo Vance MD PGY-2, Interventional Radiology Service EL MAINTENANCE ELECTRICIAN EL MAINTENANCE ELECTRICIAN * Dolores Gonzalez, BACTERIOLOGIST FISHERY - 12/26/2023 2:02 PM CST Images from [...] therapeutic SQ lovenox (held for procedure) HAILY [facility] Urology 12/26/2023 Cosigned by Temo Mcintosh MD at 12/26/2023 5:10 PM DIESEL MAINTENANCE ELECTRICIAN EL MAINTENANCE ELECTRICIAN EL MAINTENANCE ELECTRICIAN Associated attestation - Temo Mcintosh MD - 12/26/2023 5:10 PM DIESEL MAINTENANCE ELECTRICIAN I have seen and examined the patient on 12/26/23. I agree with the findings and plan of care as documented in the resident's/fellow's note. -- Will plan on delayed internalization to an indwelling ureteral stent per IR recommendations (estimated in 4-6 weeks) -- My clinical suspicion is that the heavily impacted ureteral stone resulted in a high-grade ureteral stricture. senior living management will be either scheduled stent exchanges [...] w/c Prior Function Prior Function Level of [place]: Needs assistance with functional transfers, Independent with wheelchair Lives With: Spouse Receives Help From: Spouse/Significant other (wall mirror department supervisor assist available) Fall within the last 6 [...] from sit to supine 12/26/23 01/02/24 -- EL MAINTENANCE ELECTRICIAN * Galina Stoddard, OT - 12/26/2023 10:16 [...] independence in ADLs. Pt in agreement with CA rec at this time. 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 Pt in agreement with CA rec at this time. OT Goals Multi-Disciplinary [...] not assigned to this patient, please call [phone]. EL MAINTENANCE ELECTRICIAN * Nichole Mitchell MD - 12/25/2023 10:59 [...] number for questions about this patient's care. EL MAINTENANCE ELECTRICIAN documented in this encounter H&P Notes * [...] Temo Mcintosh MD at 12/25/2023 7:00 AM DIESEL MAINTENANCE ELECTRICIAN EL MAINTENANCE ELECTRICIAN EL MAINTENANCE ELECTRICIAN Source Note - Tamia Lee NP - 12/19/2023 8:16 AM DIESEL MAINTENANCE ELECTRICIAN Images from the original note were not included. Center for Preoperative Assessment and Planning Preoperative Evaluation Record Evaluation type/location: TPAP from [facility] Planned procedure site: [facility] PVT OR (Pod 1) Date: 12/19/23 [...] DVT/PE episodes: 1. Pertinent negatives: CAD ; [place] ; CABG ; atrial fibrillation; pacemaker/ICD; negative [...] were provided via telephone and faxed to [facility]. Patient verbalized understanding of DOS [...] of new anasarca. Spoke with MD at [facility]- will place order. Surgeon's office notified pt will need repeat TTE. -->Recommend holding Lovenox on morning of surgery only and resuming ANSELMO postoperatively. Instructed provided to [facility] staff. Quantitative Medicine message sent to surgeon's office to make [...] Diagnosis Date Noted DVT (deep venous thrombosis) ([facility]) ([facility]) 11/29/2023 Anemia 11/29/2023 Paraspinal hematoma 11/29/2023 Hyponatremia 11/29/2023 Elevated transaminase level 11/29/2023 Lower extremity edema 11/29/2023 Scrotal swelling 11/29/2023 Seizure ([facility]) 11/29/2023 Prediabetes 11/29/2023 Kidney stone 11/09/2023 Paralysis of both lower limbs ([facility]) ([facility]) 11/07/2023 Pulmonary embolism ([facility]) 10/26/2023 S/P spinal fusion 10/23/2023 [...] 0.76 mg/dL (L) Joni index score: 55 EL MAINTENANCE ELECTRICIAN EL MAINTENANCE ELECTRICIAN documented in this encounter Nursing Notes * Kishan Hanson RN - 12/27/2023 12:58 PM CST Pt is being discharged today, transferring to a SNF. NARENDRA Atkinson at [facility] was given reportregardign this pt. Ambulance pickup at 2PM. VSS, AOx4, tolerates diet well. Pt will be given CHG bath prior leaving. Pt going to SNF with L nephrostomy tube. Shook was removed as per order. EL MAINTENANCE ELECTRICIAN documented in this encounter Miscellaneous Notes * [...] Clinical Indicators: 73 year old male from [facility] w/kidney stone s/p stent removal and left percutaneous nephrostomy tubeon 12/26/23. 12/20 CPAP: Functional capacity: <4 METs, ambulates with assistance only and cannot ambulate Patient Active Problem List: Paralysis of both lower limbs (11/07/2023) 12/25 Case management: ??? s/p decompression surgery 10/2023 c/b cardiac arrest post-op and hematomas/p evacuation (11/07/23) with resulting LE paralysis ??? prefers discharge to [facility] ???Functional status: bedbound Additional Information: [...] become part of the patient's medical record. EL MAINTENANCE ELECTRICIAN * ACP (Advance Care Planning) - Nora Last LCSW - 12/27/2023 11:03 AM DIESEL MAINTENANCE ELECTRICIAN Advance Care Planning Advance Care Planning Conversation The patient and/or family consented to a voluntary Advance Care Planning conversation. Individuals present for the conversation: patient Advance Directive: Yes On file: Yes Power of Software Verification Engineer Name: Val Evans Relationship: Spouse Summary [...] ongoing clinical care only. Nora Last LCSW EL MAINTENANCE ELECTRICIAN * Initial Assessments - Nora Last LCSW - 12/27/2023 10:59 AM DIESEL MAINTENANCE ELECTRICIAN Social Work Assessment Clinical Dx: Nephrolithiasis Past [...] other Type of Residence: Private residence Income: Nursing Home/Pension Income Comment: Patient is retired Financial assistance: [...] Family Perspective: BIBI Do you have a Jainism Preference or Affiliation?: Yes Preference/Affiliation : Atheist Are there any Jainism Practices that are important to maintain while [...] More than three times a week Attends Jainism Services: Never Active Member of Clubs or [...] year-old male who was readmitted to [facility] for scheduled cystoscopy, left ureteroscopy, left retrograde [...] insecurity. Patient has the insurance [facility] Medicare. Patient declined to be provided with any community resources at this time. No further Social Work interventions identified. Social Work will sign off. Nora Last LCSW EL MAINTENANCE ELECTRICIAN * Plan of Care - Bharti Viramontes [...] and nephrostomy care completed, frequent turns completed EL MAINTENANCE ELECTRICIAN * Plan of Care - Kishan Hanson [...] VSS, AOx4, transferred to a specialty bed. EL MAINTENANCE ELECTRICIAN * Plan of Care - Estella Maxwell RN - 12/26/2023 3:00 PM CST LUIS called and spoke with Torey from [facility] ([phone]). Patient is OK for discharge tomorrow. Report: [phone] EL MAINTENANCE ELECTRICIAN * Post-Procedure Note - Dennis Albarado MD - 12/26/2023 1:05 PM DIESEL MAINTENANCE ELECTRICIAN Radiology Brief Post Procedure Note Attending: Dr. Romero Perinatal Director: Dr. Albarado Sedation/Anesthesia: Min Sedation Pre-Op/Pre-Procedure Diagnosis: [...] None Condition: Stable Full report to follow. EL MAINTENANCE ELECTRICIAN * Plan of Care - Estella Maxwell RN - 12/26/2023 9:43 AM CST Per Medical Chart/Rounds/IDR: Patient admitted with stone, plan for left nephU tube placement in IRto. He is not medically ready for discharge to SNF. ADD: 12/27 Plan & referrals made/in place: LUIS left voicemail for Torey with [facility] ([phone]). [facility] Torey [phone] Support following discharge: facility staff; spouse Val Evans [phone]; son Marcial Evans [phone] Transportation: ambulance F/U Appointments: per medical team Patient's Identified Problem/Goal Problem: Ensure acute medical needs are met and that patient has a safe discharge plan. Goal: Secure a discharge plan that patient/family are agreeable with and ensure patient has continuum of care. Patient and/or family are agreeable with plan. transportation project manager will continue to follow and assist with discharge planning as needed. If any further discharge needs arise, please contact the covering showcase trimmer. EL MAINTENANCE ELECTRICIAN * Pre-Procedure Note - Cici Garces MD - 12/26/2023 5:56 AM DIESEL MAINTENANCE ELECTRICIAN PRE-SEDATION ASSESSMENT/H&P Patient is a 73 y.o. [...] extremity edema 11/29/2023 Scrotal swelling 11/29/2023 Seizure ([facility]) 11/29/2023 Prediabetes 11/29/2023 Kidney stone 11/09/2023 Paralysis of both lower limbs ([facility]) ([facility]) 11/07/2023 Pulmonary embolism ([facility]) 10/26/2023 S/P spinal fusion 10/23/2023 Cardiac arrest ([facility]) 10/23/2023 Left perinephric collection, 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 10/15/2023 Ureteral colic 10/13/2023 UTI (urinary tract infection) 10/13/2023 Hydronephrosis with urinary obstruction due to renal calculus 10/12/2023 Lumbar radiculopathy 10/08/2023 Gross hematuria 10/18/2022 Bladder neck obstruction 10/17/2022 Lesion of urinary bladder 10/17/2022 Prostate cancer ([facility]) 10/17/2022 HTN (hypertension) 10/10/2021 Risk factors for obstructive sleep apnea 10/10/2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 Patient or telephone claims representative was informed that the provider getting consent may not be the same provider performing procedure. All questions answered and agree to proceed. Cici Knight MD 12/26/2023 11:32 AM EL MAINTENANCE ELECTRICIAN EL MAINTENANCE ELECTRICIAN * Plan of Care - Bharti Viramontes [...] bed ordered since patient is bed bound EL MAINTENANCE ELECTRICIAN * Plan of Care - Estella Maxwell RN - 12/25/2023 3:05 PM CST LUIS received call from Jennifer with [facility]. Patient was anticipated to discharge from [facility] to [facility] tomorrow. There was a peer to peer today that was approved for SNF. Jennifer provided contact information for facility. [facility] Torey [phone] ECIN referral placed. LUIS called and spoke with Torey who is going to make sure that insurance auth is valid for patient to discharge from hospital vs discharge from rehab. EL MAINTENANCE ELECTRICIAN * Initial Assessments - Estella Maxwell RN - 12/25/2023 2:04 PM CST LUIS Initial Assessment Interview Note Information Obtained From: Patient (at bedside) (12/25/23 1401) Admission Source: [facility] Impression: 73 year old male admitted following cystosopy, retrograde pyelogram, ureteroscopy for stone extraction. PMH Lumbar Disc Herniation s/p decompression surgery 10/2023 c/b cardiac arrest post-op and hematoma s/p evacuation (11/07/23) with resulting LE paralysis, DVT/PE s/p IVC filter (not on A/C currently), HTN. Plan Includes: Patient would prefer to discharge to [facility]. He states they submitted an appeal to insurance yesterday. If insurance denies, he would prefer to discharge to [facility]. He will need ambulance transportation at discharge. CM called and left voicemail for Jennifer with [facility] to follow up on appeal/rehab status. ECIN referral placed to [facility]. Primary Source of Transportation: Does the patient need discharge transport arranged?: Yes Details of Transportation: Ambulance (12/25/231400) Health Insurance Coverage: [facility] Medicare Prescription Coverage: yes Pharmacy: verified [facility] - [place], [place] - [address] [place] [address] [facility] [address] Primary Care Provider: Rl Barnett DO Prior to Admission: Functional Status: Bedbound Primary Caregiver: Facility staff Support System: Spouse/Significant Other, Children (spouse Val Evans [phone]; son Marcial Evans [phone]) Home Care Services: No Outpatient Services: No [...] Collaboration with patient, MD, direct care nurse, Dental Receptionist, and other members of the health care team to assure needed interventions completed. 2. Return patient to optimal level of self-care post discharge. 3. Wirer Helper will follow for Discharge Planning - interventions [...] with the aftercare plan. Estella Maxwell RN EL MAINTENANCE ELECTRICIAN * Plan of Care - Katharine Montgomery [...] from PACU. Monitor I&Os. Pain controlled. VSS. EL MAINTENANCE ELECTRICIAN * Op Note - Temo Mcintosh MD [...] the case by atraumatically introducing a 22 Niuean rigid cystoscope into the urethra. Inthe proximal [...] the entire procedure (including opening and closing). EL MAINTENANCE ELECTRICIAN * Perioperative Nursing Note - Crystal Sprague RN - 12/12/2023 3:27 PM CST [facility] for Preoperative Assessment and Planning Perioperative Nursing Note Telephone Preoperative Evaluation ([facility]) - TELEPHONE ONLY, NO PHYSICAL [...] mouth nightly 2 tablets) Implants Bone Cement [employer] 6197-9-010 Simplex P Full Dose Radiopaque Preblend Cement Bone Tobramycin - S0- [id number] - Implanted (Right) Knee Inventory item: [employer] Simplex P Full Dose Radiopaque Preblend Cement Bone [id number] Model/Cat number: [id number] Serial number: 0 Plant Chief: [employer] Lot number: [id number] Device identifier: [id number] Device identifier type: [facility] As of 09/30/2019 Status: Implanted Other - see comments [employer] [id number] Kandace II 15mm Constrain Knee 5-6 Insert Articular Uhmwpe- S0 - [id number] - Implanted (Right) Knee Inventory item: [employer] Kandace Ii 15mm Constrain Knee 5-6 Insert ArticularUhmwpe [id number] Model/Cat number: [id number] Serial number: 0 Plant Chief: [employer] Lot number: [id number] As of 09/30/2019 Status: Implanted [employer] [id number] Legion 10mm Screw Knee 6 Wedge Femoral - S0 - [id number] -Implanted (Right) Knee Inventory item: [employer] Legion 10mm Screw Knee 6 Wedge Femoral [id number] Model/Cat number: [id number] Serial number: 0 Plant Chief: [employer] Device identifier: [id number] Device identifier type: [facility] As of 09/30/2019 Status: Implanted [employer] [id number] Legion Constrain Knee Right 6 Component Femoral Oxinium - S0 - [id number] - Implanted (Right) Knee Inventory item: [employer] Legion Constrain Knee Right 6 Component Femoral [employer] [id number] Model/Cat number: [id number] Serial number: 0 Plant Chief: [employer] Lot number: [id number] As of 09/30/2019 Status: Implanted [employer] [id number] Legion 5mm Alcon Step Knee Right Medial Left Lateral 5-6 Wedge - S0 - [id number] - Implanted (Right) Knee Inventory item: [employer] Legion 5mm Alcon Step Knee Right Medial Left Lateral5-6 Wedge [id number] Model/Cat number: [id number] Serial number: 0 Plant Chief: [employer] Device identifier: [id number] Device identifier type: HIB As of 09/30/2019 Status: Implanted [employer] [id number] Legion 15mm 160mm Press Fit Knee Stem Femoral - S0 - [id number] - Implanted (Right) Knee Inventory item: [employer] Legion 15mm 160mm Press Fit Knee Stem Femoral [id number] Model/Cat number: [id number] Serial number: 0 Plant Chief: [employer] Lot number: [id number] As of 09/30/2019 Status: Implanted [employer] [id number] Legion 10mm Screw Knee 6 Wedge Femoral - S0 - [id number] -Implanted (Right) Knee Inventory item: [employer] Legion 10mm Screw Knee 6 Wedge Femoral [id number] Model/Cat number: [id number] Serial number: 0 Plant Chief: [employer] Lot number: [id number] As of 09/30/2019 Status: Implanted [employer] [id number] Legion Revision Knee Right 5 Baseplate Tibial - S0 - [id number] - Implanted (Right) Knee Inventory item: [employer] Legion Revision Knee Right 5 Baseplate Tibial [id number] Model/Cat number: [id number] Serial number: 0 Plant Chief: [employer] Lot number: [id number] Device identifier: [id number] Device identifier type: [id number] As of 09/30/2019 Status: Implanted [employer] [id number] Legion 15mm 160mm Press Fit Knee Stem Femoral - S0 - [id number] - Implanted (Right) Knee Inventory item: [employer] Legion 15mm 160mm Press Fit Knee Stem Femoral [id number] Model/Cat number: [id number] Serial number: 0 Plant Chief: [employer] [employer] Lot number: [id number] Device identifier: [id number] Device identifier type: GS1 As of 09/30/2019 Status: Implanted [employer] 5517-F-501 Triathlon Cruciate Retain Bead Knee Left 5 Component Femoral Pa - Sn/A - [id number] - Implanted (Left) Knee Inventory item: [employer] Triathlon Cruciate Retain Bead Knee Left 5 Component Femoral Pa 5517-F-501 Model/Cat number: [id number] Serial number: N/A Plant Chief: [employer] Lot number: [id number] Device identifier: [id number] Device identifier type: GS1 As of 10/17/2021 Status: Implanted [employer] 5536-B-600 Triathlon Knee 6 Baseplate Tibial Tritanium - Sn/A - [id number] - Implanted (Left) Knee Inventory item: [employer] Triathlon Knee 6 Baseplate Tibial Tritanium 5536-B-600 Model/Cat number: [id number] Serial number: N/A Plant Chief: [employer] Lot number: [id number] Device identifier: [id number] Device identifier type: GS1 As of 10/17/2021 Status: Implanted [employer] 7299-A-743-E Insert Tibial Triathlon 6 H10mm Knee Bearing Condylar Stabilize Sterile - Sn/A - [id number] - Implanted (Left) Knee Inventory item: [employer] Insert Tibial Triathlon 6 H10mm Knee Bearing Condylar Stabilize Sterile 7568-U-468-E Model/Cat number: [id number] Serial number: N/A Plant Chief: [employer] Lot number: [id number] Device identifier: [id number] Device identifier type: GS1 As of 10/17/2021 Status: Implanted Stent [employer] Universa 6fr 28cm Firm Positioner Monofilament Tether Stent [id number] - [id number] -Implanted (Left) Ureter Inventory item: [employer] UNIVERSA 6FR 28CM FIRM POSITIONER MONOFILAMENT TETHER STENT [id number]/Cat number: [id number] Plant Chief: [employer] Lot number: [id number] Size: 6x28 Device identifier: [id number] Device identifier type: GS1 As of 10/18/2023 Status: Implanted Type Not Specified [employer] 6197-9-010 Simplex P Full Dose Radiopaque Preblend Cement Bone Tobramycin - [id number] - Implanted (Right) Knee Inventory item: [employer] Simplex P Full Dose Radiopaque Preblend Cement Bone [id number] Model/Cat number: [id number] Plant Chief: [employer] Device identifier: [id number] Device identifier type: GS1 As of 09/30/2019 Status: Implanted [employer] Crushed Chip Frozen Graft 30ml Bone Cancellous [id number] - [id number] - Implanted Spine Lumbar Inventory item: [employer] Crushed Chip Frozen Graft 30ml Bone Cancellous [id number] Model/Cat number: [id number] Plant Chief: [employer] Lot number: [id number] As of 10/23/2023 Status: Implanted [employer] Allograft Bone Putty 2.5cc 700-025 - [id number] - Implanted Spine Lumbar Inventory item: [employer] Allograft Bone Putty 2.5CC 700-025 Model/Cat number: [id number] Plant Chief: [employer] Lot number: [id number] Device identifier: [id number] Device identifier type: GS1 As of 10/23/2023 Status: Implanted [employer] Creo Od7.5 Mm L55 Mm Thread Polyaxial Spine Screw Bone Titanium 5146.1757 - [id number] - Implanted Spine Lumbar Inventory item: [employer] Creo Od7.5 Mm L55 Mm Thread Polyaxial Spine Screw Bone Titanium 5146.1757 Model/Cat number: [id number] Plant Chief: [employer] As of 10/23/2023 Status: Implanted [employer] Creo Od7.5 Mm L50 Mm Thread Polyaxial Spine Screw Bone Titanium 5146.1752 - [id number] - Implanted Spine Lumbar Inventory item: [employer] Creo Od7.5 Mm L50 Mm Thread Polyaxial Spine Screw Bone Titanium 5146.1752 Model/Cat number: [id number] Plant Chief: [employer] As of 10/23/2023 Status: Implanted [employer] Creo Thread Spinal Cap Locking Nonsterile 1119.0010 - [id number] - Implanted Spine Lumbar Inventory item: [employer] Creo Thread Spinal Cap Locking Nonsterile 1119.0010 Model/Cat number: [id number] Plant Chief: [employer] As of 10/23/2023 Status: Implanted [employer] Implant Spinal Sable [id number] 7-14mm 15 Deg 1172.1s - [id number] - Implanted Spine Lumbar Inventory item: [employer] Implant Spinal Sable [id number] 7-14mm 15 Deg 1172.1S Model/Cat number: [id number] Plant Chief: [employer] As of 10/23/2023 Status: Implanted [employer] Creo 5.5mm 45mm Curve Daniel Spinal Titanium 1119.7045 - [id number] - Implanted Spine Lumbar Inventory item: [employer] Creo 5.5mm 45mm Curve Daniel Spinal Titanium 1119.7045 Model/Cat number: [id number] Plant Chief: [employer] As of 10/23/2023 Status: Implanted [employer] Rex Tulip Navalign 30mm 7fr 50mm 65cm Introducer Sheath [id number] - [id number] -Implanted Inventory item: [employer] Rex Tulip Navalign 30mm 7fr 50mm 65cm Introducer Sheath [id number]/Cat number: [id number] Plant Chief: [employer] Lot number: [id number] As of 11/09/2023 Status: Implanted SKIN Piercings Remaining: No Wound (LDAs) Type of Wound (LDA): (patient denies) SCREENINGS Joni index score: 55 PATIENT CARE PLANNING Advance Directives (For Healthcare) Have you reviewed your Advance Directive and is it valid for this stay?: Yes Advance Directive: Patient has advance directive, copy in chart Type of Healthcare Directive: Durable power of attorney lawyer for health care Communication/Acls Specialist Needs Communication Barriers: Visual Communication Needs: Glasses Assistive Devices/DME: Eyeglasses, Motorized wheelchair Hearing - Right Ear: Functional Hearing - Left Ear: Functional Discharge Planning Type of Residence: Other (Comment) (Rehab) Living Arrangements: Other (Comment) (rehab) Support Systems: Family members, Friends/neighbors, Spouse/significant other Patient expects to be discharged to:: Acute Rehab (Rehab facility will provide transportation to and from surgery.) ROOFER APPLICATOR NO ADDITIONAL COMMENTS/ FOLLOW UP EL MAINTENANCE ELECTRICIAN * Pre-Procedure Instructions - Crystal Sprague RN [...] remove nail coverings, artificial nails and nail cymraes prior to the day of surgery. You should leave your valuables and any jewelry at home. No metal or piercings are allowed in the operating room. You should bring your insurance card, a photo ID (example: [employer]'s License) and a method of payment for [...] Chart. If you are having surgery at [facility], please arrive on the day of [...] Remove nail coverings, artificial nails and nail cymraes. Place clean linens on your bed the [...] questions, please call the CPAP Staff at [phone], Sunday-Sunday 8am-4:30pm. All patients should read the below section: COVID 19 Updates & Visitor Policy: Please access [email or web address] for the most updated information. Information on [facility]: Please view [email or web address] (Patient & Visitor Information) for additional details regarding Advanced Directive forms, AWARE, directions, parking information, lodging, Internet access, dining and more. Information on [facility] or [facility] ([facility]): Please view [email or web address] (Patient and Visitor Information) for parking/directions and more. For MyChart information, to activate account or password recovery, please go to [email or web address] or call [phone] (toll-free: [phone]), Sun- Sunday 8am-5pm. Information for Suicide Prevention: National Suicide Prevention Lifeline (7-707- 588-QAGO (6288)) or call or text 422. Chat resources: [email or web address]. Surgery Times: For patients having surgery @ [facility] or [facility] ([facility]), if your surgeon's office has not notified you of your surgery time by NOON THE BUSINESS DAY BEFORE your surgery, please call [phone] and ask for your surgeon's office Dr. Mcintosh. The [facility] for Preoperative [facility] & Planning (CPAP) does not provide arrival times for the day of surgery or provide the duration of surgery. This information is provided by your surgeon'soffice or by the center where you are having surgery. We appreciate your understanding. EL MAINTENANCE ELECTRICIAN documented in this encounter Plan of Treatment Not on file documented as of this encounter Procedures Procedure Name Priority Date/Time Associated Diagnosis Comments EGFR Timed 12/27/2023 12:19 AM DIESEL MAINTENANCE ELECTRICIAN CBC WITHOUT DIFFERENTIAL Timed 12/27/2023 12:19 AM DIESEL MAINTENANCE ELECTRICIAN PHOSPHORUS Timed 12/27/2023 12:19 AM DIESEL MAINTENANCE ELECTRICIAN MAGNESIUM Timed 12/27/2023 12:19 AM DIESEL MAINTENANCE ELECTRICIAN BASIC METABOLIC PANEL Timed 12/27/2023 12:19 AM DIESEL MAINTENANCE ELECTRICIAN PERCUTANEOUS NEPHROSTOMY PCN LEFT ED Urgent/IP Urgent 12/26/2023 1:00 PM DIESEL MAINTENANCE ELECTRICIAN EGFR Routine 12/26/2023 12:08 AM DIESEL MAINTENANCE ELECTRICIAN APTT Routine 12/26/2023 12:08 AM DIESEL MAINTENANCE ELECTRICIAN PROTIME-INR Routine 12/26/2023 12:08 AM DIESEL MAINTENANCE ELECTRICIAN CBC WITHOUT DIFFERENTIAL Routine 12/26/2023 12:08 AM DIESEL MAINTENANCE ELECTRICIAN PHOSPHORUS Routine 12/26/2023 12:08 AM DIESEL MAINTENANCE ELECTRICIAN MAGNESIUM Routine 12/26/2023 12:08 AM DIESEL MAINTENANCE ELECTRICIAN BASIC METABOLIC PANEL Routine 12/26/2023 12:08 AM DIESEL MAINTENANCE ELECTRICIAN CT UROGRAM W 3D ED Urgent/IP Urgent 12/25/2023 4:23 PM DIESEL MAINTENANCE ELECTRICIAN FL FLUOROSCOPY < 1 HOUR IP Routine 12/25/2023 8:21 AM DIESEL MAINTENANCE ELECTRICIAN URETEROSCOPY 12/25/2023 7:28 AM DIESEL MAINTENANCE ELECTRICIAN Kidney stone PYELOGRAM - RETROGRADE 12/25/2023 7:28 AM DIESEL MAINTENANCE ELECTRICIAN Kidney stone CYSTOSCOPY 12/25/2023 7:28 AM DIESEL MAINTENANCE ELECTRICIAN Kidney stone documented in this encounter Results * eGFR (12/27/2023 12:19 AM DIESEL MAINTENANCE ELECTRICIAN) eGFR >90 >=60 mL/min/1. 73 m2 [facility] Comment: Interpretive Data Reference Interval [...] reviewed 2021. Blood 12/27/2023 12:1 9 AM DIESEL MAINTENANCE ELECTRICIAN 12/27/2023 12:52 AM DIESEL MAINTENANCE ELECTRICIAN Temo Mcintosh MD LAB BLOOD ORDERABLES Fin al Result Performing Organization Address [facility] de Phone Number [facility] [place] [address] * Phosphorus (12/27/2023 12:19 AM DIESEL MAINTENANCE ELECTRICIAN) Phosphorus, pl 3.1 2.3 - 4.5 mg/dL [facility] Blood 12/27/2023 12:1 9 AM DIESEL MAINTENANCE ELECTRICIAN 12/27/2023 12:52 AM DIESEL MAINTENANCE ELECTRICIAN Temo Mcintosh MD LAB BLOOD ORDERABLES Fin al Result Performing Organization Address [facility] de Phone Number [facility] Department [place] [address] * Magnesium (12/27/2023 12:19 AM DIESEL MAINTENANCE ELECTRICIAN) Magnesium 2.0 1.4 - 2.5 mg/dL [facility] Blood 12/27/2023 12:1 9 AM DIESEL MAINTENANCE ELECTRICIAN 12/27/2023 12:52 AM DIESEL MAINTENANCE ELECTRICIAN Temo Mcintosh MD LAB BLOOD ORDERABLES Fin al Result Performing Organization Address [facility] de Phone Number [facility] Department [place] [address] * (ABNORMAL) Basic metabolic panel (12/27/2023 12:19 AM DIESEL MAINTENANCE ELECTRICIAN) [facility] Sodium 140 135 - 145 mmol/L [facility] Potassium, pl 3.4 3.3 - 4.9 mmol/L [facility] Chloride 102 97 - 110 mmol/L [facility] CO2 29 22 - 32 mmol/L [facility] Anion gap 9 2 - 15 mmol/L [facility] BUN 12 6 - 25 mg/dL [facility] Creatinine 0.78(L) 0.80 - 1.30 mg/dL [facility] Glucose 123 70 - 199 mg/dL [facility] Comment: Interpretive Data Fasting glucose >/= 126 [...] 2022. Calcium 8.6 8.5 - 10.3 mg/dL [facility] Blood 12/27/2023 12:1 9 AM DIESEL MAINTENANCE ELECTRICIAN 12/27/2023 12:52 AM DIESEL MAINTENANCE ELECTRICIAN us Temo Mcintosh MD LAB BLOOD ORDERABLES Fin al Result [facility] [place] [address] * (ABNORMAL) CBC without differential (12/27/2023 12:19 AM DIESEL MAINTENANCE ELECTRICIAN) [facility] WBC 7.4 3.8 - 9.9 K/cumm [facility] Hgb 10.1(L) 13.0 - 17.5 g/dL [facility] Hct 30.8(L) 38.9 - 50.3 % [facility] Plt 158 150 - 400 K/cumm [facility] MPV 11.5 9.1 - 12.3 fL [facility] RBC 3.34(L) 4.30 - 5.80 M/cumm [facility] MCV 92.2 81.3 - 96.4 fL [facility] MCH 30.2 27.1 - 33.3 pg [facility] MCHC 32.8 32.3 - 35.7 g/dL [facility] RDW CV 14.2 11.1 - 14.9 % [facility] RDW SD 48.2(H) 35.7 - 48.1 fL [facility] NRBC abs 0.00 0.00 - 0.01 K/cumm [facility] Blood 12/27/2023 12:1 9 AM DIESEL MAINTENANCE ELECTRICIAN 12/27/2023 12:52 AM DIESEL MAINTENANCE ELECTRICIAN Temo Mcintosh MD LAB BLOOD ORDERABLES Fin al Result Performing Organization Address City/State/[facility] Co de Phone Number [facility] [place] [address] * IR Percutaneous Nephrostomy Left (12/26/2023 1:00 PM DIESEL MAINTENANCE ELECTRICIAN) Anatomical Region Laterality Modality Body Left Ultrasound 12/26/2023 3:27 PM DIESEL MAINTENANCE ELECTRICIAN Impressions 12/26/2023 4:49 PM DIESEL MAINTENANCE ELECTRICIAN Successful left 10-Niuean percutaneous nephrostomy tube placement. PLAN: ?? Patient [...] Cici Romero MD Narrative 12/26/2023 4:49 PM DIESEL MAINTENANCE ELECTRICIAN EXAMINATION : LEFT PERCUTANEOUS NEPHROSTOMY CATHETER PLACEMENT [...] was obtained. Prior to beginning the procedure, Ladd Protocol was performed to confirm the patient's [...] the tract was dilated before placing a 10-Niuean cope catheter. ??The retaining loop was formed [...] was obtained. Prior to beginning the procedure, Ladd Protocol was performed to confirm the patient's [...] the tract was dilated before placing a 10-Niuean cope catheter. The retaining loop was formed [...] the pleura or bowel. IMPRESSION: Successful left 10-Niuean percutaneous nephrostomy tube placement. PLAN: Patient needs [...] Final Result * eGFR (12/26/2023 12:08 AM DIESEL MAINTENANCE ELECTRICIAN) eGFR >90 >=60 mL/min/1. 73 m2 [facility] Comment: Interpretive Data Reference Interval [...] reviewed 2021. Blood 12/26/2023 12:0 8 AM DIESEL MAINTENANCE ELECTRICIAN 12/26/2023 12:53 AM DIESEL MAINTENANCE ELECTRICIAN Temo Mcintosh MD LAB BLOOD ORDERABLES Fin al Result [facility] Department [place] [address] * (ABNORMAL) CBC without differential (12/26/2023 12:08 AM DIESEL MAINTENANCE ELECTRICIAN) Pathologist [facility] WBC 9.4 3.8 - 9.9 K/cumm [facility] Hgb 10.5(L) 13.0 - 17.5 g/dL [facility] Hct 32.4(L) 38.9 - 50.3 % [facility] Plt 189 150 - 400 K/cumm [facility] MPV 11.5 9.1 - 12.3 fL [facility] RBC 3.50(L) 4.30 - 5.80 M/cumm [facility] MCV 92.6 81.3 - 96.4 fL [facility] MCH 30.0 27.1 - 33.3 pg [facility] MCHC 32.4 32.3 - 35.7 g/dL [facility] RDW CV 14.1 11.1 - 14.9 % [facility] RDW SD 48.1 35.7 - 48.1 fL [facility] NRBC abs 0.00 0.00 - 0.01 K/cumm [facility] Blood 12/26/2023 12:0 8 AM DIESEL MAINTENANCE ELECTRICIAN 12/26/2023 12:54 AM DIESEL MAINTENANCE ELECTRICIAN Temo Mcintosh MD LAB BLOOD ORDERABLES Fin al Result Performing Organization Address City/[facility]/ZIP Co de Phone Number [facility] [place] [address] * Phosphorus (12/26/2023 12:08 AM DIESEL MAINTENANCE ELECTRICIAN) Pathologist [facility] Phosphorus, pl 3.2 2.3 - 4.5 mg/dL [facility] Blood 12/26/2023 12:0 8 AM DIESEL MAINTENANCE ELECTRICIAN 12/26/2023 12:53 AM DIESEL MAINTENANCE ELECTRICIAN Temo Mcintosh MD LAB BLOOD ORDERABLES Fin al Result Performing Organization Address [facility] [place] [address] * Magnesium (12/26/2023 12:08 AM DIESEL MAINTENANCE ELECTRICIAN) [facility] Magnesium 2.0 1.4 - 2.5 mg/dL [facility] Blood 12/26/2023 12:0 8 AM DIESEL MAINTENANCE ELECTRICIAN 12/26/2023 12:53 AM DIESEL MAINTENANCE ELECTRICIAN Temo Mcintosh MD LAB BLOOD ORDERABLES Fin al Result Performing Organization Address [facility] [place] [address] * Basic metabolic panel (12/26/2023 12:08 AM DIESEL MAINTENANCE ELECTRICIAN) [facility] Sodium 142 135 - 145 mmol/L [facility] Potassium, pl 3.4 3.3 - 4.9 mmol/L [facility] Chloride 104 97 - 110 mmol/L [facility] CO2 27 22 - 32 mmol/L [facility] Anion gap 11 2 - 15 mmol/L [facility] BUN 13 6 - 25 mg/dL [facility] Creatinine 0.80 0.80 - 1.30 mg/dL [facility] Glucose 122 70 - 199 mg/dL [facility] Comment: Interpretive Data Fasting glucose >/= 126 [...] 2022. Calcium 9.0 8.5 - 10.3 mg/dL [facility] Blood 12/26/2023 12:0 8 AM DIESEL MAINTENANCE ELECTRICIAN 12/26/2023 12:53 AM DIESEL MAINTENANCE ELECTRICIAN Temo Mcintosh MD LAB BLOOD ORDERABLES Fin al Result Performing Organization Address [facility] de Phone Number [facility] [place] [address] * Protime-INR (12/26/2023 12:08 AM DIESEL MAINTENANCE ELECTRICIAN) PT 12.2 10.3 - 13.7 sec [facility] INR 1.07 0.90 - 1.20 [facility] Comment: Interpretive data Oral anticoagulant therapeutic ranges: Venous thromboembolism prophylaxis or treatment: 2.0-3.0 CARDIOLOGY Standard range: 2.0-3.0 High-intensity range: 2.5-3.5 Refer to indication-specific guidelines for appropriate target ranges for prosthetic heart valve replacement. Current interpretive data was last revised on 2019. Blood 12/26/2023 12:0 8 AM DIESEL MAINTENANCE ELECTRICIAN 12/26/2023 12:55 AM DIESEL MAINTENANCE ELECTRICIAN Temo Mcintosh MD LAB BLOOD ORDERABLES Fin al Result Performing Organization Address [facility] de Phone Number [facility] [place] [address] * aPTT (12/26/2023 12:08 AM DIESEL MAINTENANCE ELECTRICIAN) aPTT 29 28 - 38 sec [facility] Comment: Interpretive Data Heparin therapeutic range: 66.0 - 100.0 seconds. Range based on correlation with therapeutic heparin activity range of 0.3 - 0.7 Units/mL. Current interpretive data was last revised on 2023. Blood 12/26/2023 12:0 8 AM DIESEL MAINTENANCE ELECTRICIAN 12/26/2023 12:55 AM DIESEL MAINTENANCE ELECTRICIAN us Temo Mcintosh MD LAB BLOOD ORDERABLES Fin al Result Performing Organization Address City/State/[facility] Co de Phone Number [facility] [place] [address] * CT Urogram W 3D (12/25/2023 4:23 PM DIESEL MAINTENANCE ELECTRICIAN) Anatomical Region Laterality Modality Body Computed Tomogra phy 12/25/2023 5:08 PM DIESEL MAINTENANCE ELECTRICIAN Addenda Addendum by Elsy Fields MD on 12/26/2023 8:29 AM DIESEL MAINTENANCE ELECTRICIAN When comparing to the retrograde pyelogram 10/18/2023, [...] Elsy Fields M.D. Impressions 12/26/2023 6:58 AM DIESEL MAINTENANCE ELECTRICIAN 1. ??Interval removal of left-sided ureteral stent. [...] Elsy Fields M.D. Narrative 12/26/2023 6:58 AM DIESEL MAINTENANCE ELECTRICIAN EXAMINATION: 1. CT UROGRAPHY WITH AND WITHOUT [...] Fluoroscopy < 1 Hour (12/25/2023 8:21 AM DIESEL MAINTENANCE ELECTRICIAN) Narrative RAD_PACS_[facility] - 12/25/2023 8:21 AM DIESEL MAINTENANCE ELECTRICIAN The images from this study are not [...] AnalgesiaIndications:Pre-Emptiv e Analgesia Given 12/25/2023 7:01 AM DIESEL MAINTENANCE ELECTRICIAN 1,000 mg acetaminophen (TYLENOL) tablet 1,000 mg 1,000 mg, oral, Every 6 hours scheduled, First dose (after last modification) on Sun12/26/23 at 1445 Given 12/27/2023 12:44 PM DIESEL MAINTENANCE ELECTRICIAN 1,000 mg Given 12/26/2023 2:40 PM DIESEL MAINTENANCE ELECTRICIAN 1,000 mg acyclovir (ZOVIRAX) tablet 400 mg 400 mg, oral, 2 times daily, First dose on Sun12/25/23 at 1045, Indications: Chronic SuppressionIndications:Chronic Suppression Given 12/27/2023 8:13 AM DIESEL MAINTENANCE ELECTRICIAN 4 00 mg Given 12/26/2023 8:40 PM DIESEL MAINTENANCE ELECTRICIAN 400 mg Given 12/26/2023 10:27 AM DIESEL MAINTENANCE ELECTRICIAN 400 mg calcium carbonate (TUMS) chewable tablet [...] tablet/capsule., Indications: hypertensionIndications:hypertension Given 12/26/2023 8:39 PM DIESEL MAINTENANCE ELECTRICIAN 240 mg Given 12/25/2023 11:41 AM DIESEL MAINTENANCE ELECTRICIAN 240 mg famotidine (PEPCID) injection 20 mg 20 mg, intravenous, Administer over 2 Minutes, Once, On Sun12/25/23 at 0700, For 1 dose, Pre-Op, Indications: RefluxIndications:Reflux Given 12/25/2023 7:01 AM DIESEL MAINTENANCE ELECTRICIAN 20 mg fentaNYL (SUBLIMAZE) preservative free injection intravenous, As needed, Starting on Sun12/26/23 at 1147, Intra-Op Given 12/26/2023 12:37 PM DIESEL MAINTENANCE ELECTRICIAN 25 mcg Given 12/26/2023 12:13 PM DIESEL MAINTENANCE ELECTRICIAN 25 mcg Given 12/26/2023 11:56 AM DIESEL MAINTENANCE ELECTRICIAN 25 mcg furosemide (LASIX) tablet 40 mg 40 mg, oral, 2 times daily (for diuretics), First dose (after last modification) on Sun12/25/23 at 1115, Indications: EdemaIndications:Edema Given 12/27/2023 8:13 AM DIESEL MAINTENANCE ELECTRICIAN 40 mg Given 12/26/2023 2:40 PM DIESEL MAINTENANCE ELECTRICIAN 40 mg Given 12/26/2023 10:27 AM DIESEL MAINTENANCE ELECTRICIAN 40 mg gabapentin (NEURONTIN) capsule 600 mg 600 mg, oral, 3 times daily, First dose on Sun12/25/23 at 1045, Indications: PainIndications:Pain Given 12/26/2023 8:39 PM DIESEL MAINTENANCE ELECTRICIAN 600 mg Given 12/26/2023 10:28 AM DIESEL MAINTENANCE ELECTRICIAN 600 mg Given 12/25/2023 9:35 PM DIESEL MAINTENANCE ELECTRICIAN 600 mg ioversoL (OPTIRAY 350) injection 100 mL 100 mL, intravenous, Once in imaging, contrast, Starting on Sun12/25/23 at 1403, For 1 dose Contrast Given 12/25/2023 2:04 PM DIESEL MAINTENANCE ELECTRICIAN 100 mL ioversoL (OPTIRAY 350) injection 50 mL 50 mL, intravenous, Once in imaging, contrast, Starting on Sun12/25/23 at 1403, For 1 dose Contrast Given 12/25/2023 2:04 PM DIESEL MAINTENANCE ELECTRICIAN 25 mL ioversoL (OPTIRAY 350) injection As needed, Starting on Sun12/26/23 at 1252, Intra-Op Given 12/26/2023 12:52 PM DIESEL MAINTENANCE ELECTRICIAN 37 mL Lactated Ringer's (LR) infusion 30 mL/hr, intravenous, Continuous, Starting on Sun12/25/23 at 0700, Pre-Op Rate/Dose Verify 12/25/2023 7:23 AM DIESEL MAINTENANCE ELECTRICIAN 30 mL/hr New Bag 12/25/2023 7:07 AM DIESEL MAINTENANCE ELECTRICIAN 30 mL/hr 30 mL/hr Lactated Ringer's (LR) infusion 75 mL/hr, intravenous, Continuous, Starting on Sun12/25/23 at 0930, Phase I & Post-op Floor Rate/Dose Verify 12/27/2023 11:25 AM DIESEL MAINTENANCE ELECTRICIAN 75 mL/hr 75 mL/hr New Bag 12/27/2023 4:51 AM DIESEL MAINTENANCE ELECTRICIAN 75 mL/hr 75 mL/hr Rate/Dose Verify 12/26/2023 7:27 PM DIESEL MAINTENANCE ELECTRICIAN 75 mL/hr 75 mL/h r levETIRAcetam (KEPPRA) [...] tube., Indications: seizuresIndications:seizures Given 12/27/2023 8:13 AM DIESEL MAINTENANCE ELECTRICIAN 1,000 mg Given 12/26/2023 8:39 PM DIESEL MAINTENANCE ELECTRICIAN 1,000 mg Given 12/26/2023 10:28 AM DIESEL MAINTENANCE ELECTRICIAN 1,000 mg lidocaine PF (XYLOCAINE) 10 mg/mL (1 %) preservative free injection As needed, Starting on Sun12/26/23 at 1154, Intra-Procedure (IR), Indications: Administration of Local AnesthesiaIndications:Administration of Local Anesthesia Given 12/26/2023 11:54 AM DIESEL MAINTENANCE ELECTRICIAN 8 mL Back midazolam (VERSED) 1 mg/mL injection As needed, Starting on Sun12/26/23 at 1147, Intra-Op Given 12/26/2023 12:37 PM DIESEL MAINTENANCE ELECTRICIAN 0.5 mg Given 12/26/2023 12:13 PM DIESEL MAINTENANCE ELECTRICIAN 0.5 mg Given 12/26/2023 11:56 AM DIESEL MAINTENANCE ELECTRICIAN [address] (PROTONIX) extended release tablet 40 mg 40 mg, oral, Every morning, First dose on Sun12/25/23 at 1045, Do not crush, chew, cut, dissolve, open or otherwise manipulate tablet/capsule., Indications: Treatment of Non-Bleeding Gastric Disorder, acid refluxIndications:Treatment of Non-Bleeding Gastric Disorder,acid reflux Given 12/27/2023 8:13 AM DIESEL MAINTENANCE ELECTRICIAN 40 mg Given 12/26/2023 10:27 AM DIESEL MAINTENANCE ELECTRICIAN 40 mg Given 12/25/2023 11:42 AM DIESEL MAINTENANCE ELECTRICIAN 40 mg potassium chloride ER (KLOR-CON) extended [...] crushed or chewed. Given 12/26/2023 10:27 AM DIESEL MAINTENANCE ELECTRICIAN 30 mEq Given 12/26/2023 5:38 AM DIESEL MAINTENANCE ELECTRICIAN 30 mEq ramelteon (ROZEREM) tablet 8 mg 8 mg, oral, Nightly, First dose on Sun12/25/23 at 2100, Indications: Sleep-Onset InsomniaIndications:Sleep-Onset Insomnia Given 12/26/2023 8:39 PM DIESEL MAINTENANCE ELECTRICIAN 8 m g Given 12/25/2023 9:34 PM DIESEL MAINTENANCE ELECTRICIAN 8 mg ramelteon (ROZEREM) tablet 8 mg 8 mg, oral, Nightly PRN, sleep, Starting on Sun12/25/23 at 1218, Indications: Sleep-Onset InsomniaIndications:Sleep-Onset Insomnia senna-docusate (PERICOLACE) 8.6-50 mg per tablet 1 tablet 1 tablet, oral, Nightly, First dose on Sun12/25/23 at 2100, Indications: constipationIndications:constipation Given 12/26/2023 8:39 PM DIESEL MAINTENANCE ELECTRICIAN 1 table t Given 12/25/2023 9:35 PM DIESEL MAINTENANCE ELECTRICIAN 1 tablet simethicone (MYLICON) chewable tablet 80 mg 80 mg, oral, 2 times daily PRN, flatulence, other, gas pain, Starting on Sun12/25/23 at 1218 sodium chloride 0.9% flush 0.5-20 mL 0.5-20 mL, intra-catheter, Every 8 hours scheduled, First dose on Sun12/25/23 at 1400, Flush volume based on line type and size. Given 12/25/2023 12:45 PM DIESEL MAINTENANCE ELECTRICIAN 1 0 mL sodium chloride 0.9% flush 0.5-20 mL 0.5-20 mL, intra-catheter, Every 8 hours scheduled, First dose on Sun12/26/23 at 1400, Pre-Procedure (IR), Flush volume based on line type and size. Given 12/27/2023 6:00 AM DIESEL MAINTENANCE ELECTRICIAN 10 mL Given 12/26/2023 8:40 PM DIESEL MAINTENANCE ELECTRICIAN 10 mL sodium chloride 0.9% flush 0.5-20 [...] Administered Medications Times are shown in DIESEL MAINTENANCE ELECTRICIAN. Scheduled Medication Order 12/25/2023 12/26/2023 12/27/2023 acetaminophen [...] Provider: Katharine Montgomery RN)2135 (Given - Provider: hBarti Viramontes RN) 1027 (Given - Provider: Kishan [...] CRNA)0820 (Anesthesia Volume Adjustment - Provider: Ruperto Toams CRNA)1035 (Not Given - Provider: Katharine Montgomery [...] 12/25/2023 documented in this encounter Care Teams Excelsior Machine Operator Relationship Specialty Start Date End Date Rl Medina DO [address] [place] [address] PCP - General 08/09/17 05/25/24 documented as of this encounter
--- OUTSIDE RECORDS SUMMARY | 2024-11-05 22:58 | XMS_ITS | Encounter Summary ---
Author Organization [facility] Healthcare Address [address] [place] [address] Care Team Providers Care Iron Miner Name Role Phone Rl Medina DO Primary Care Provider Reason for Referral * Diagnostic Imaging (Routine) - Closed Specialty Diagnoses / Procedures Referred By Manisha t Referred To Contact Radiology Diagnoses Hydronephrosis with urinary obstruction due to renal calculus Procedures IR Nephrostomy Catheter Change Left Dennis Albarado MD [address] [place] [address] Phone: tel: fax: [address] [phone] Referral ID Status Reason Start Date Expiration Date Visits Re quested Visits Authorized [id number] Closed 12/26/2023 01/24/2025 1 1 K SAW OPERATOR Encounter Details Date Type Department Care Team (Late st Contact Info) Description 12/26/2023 Orders Only Radiology [address] [place] [address] Dennis Albarado MD [address] [place] [address] Hydronephrosis with urinary obstruction due [...] on file Legal Sex Male 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 There was discussion regarding possible conversion [...] were discussed. Prior to beginning the procedure, [place] Protocol was performed to confirm the patient's [...] over wire for a new 10 Fr [employer] catheter with appropriate catheter tip positioning in [...] placement on 12/26/23 with a 10 Fr [employer] catheter. There was discussion regarding possible conversion [...] were discussed. Prior to beginning the procedure, [place] Protocol was performed to confirm the patient's [...] over wire for a new 10 Fr [employer] catheter with appropriate catheter tip positioning in [...] calculus documented in this encounter Care Teams Iron Miner Relationship Specialty Start Date End Date Rl Medina DO [address] [place] [address] PCP - General 08/09/17 05/25/24 documented as of this encounter
--- OUTSIDE RECORDS SUMMARY | 2024-11-05 22:58 | XMS_ITS | Encounter Summary ---
Author Organization [facility] Healthcare Address [address] [place] [address] Care Team Providers Care Meat Inspector Name Role Phone Rl Medina DO Primary Care Provider Reason for Referral * Cardiology (Routine) - Closed Specialty Diagnoses / Procedures Referred By Manisha gale Referred To Contact Diagnoses Lower extremity edema Procedures Transthoracic Echo (TTE) Limited/Followup Tae Ramos MD Phone: tel: fax: [address] [phone] Referral ID Status Reason Start Date Expiration Date Visits Re quested Visits Authorized [id number] Closed 12/19/2023 01/17/2025 1 1 CAL TECHNICAL WRITER Reason for Visit * Cardiology (Routine) - Closed Specialty Diagnoses / Procedures Referred By Manisha gale Referred To Contact Diagnoses Lower extremity edema Procedures Transthoracic Echo (TTE) Limited/Followup Tae Ramos MD Phone: tel: fax: [address] [phone] Referral ID Status Reason Start Date Expiration Date Visits Re quested Visits Authorized [id number] Closed 12/19/2023 01/17/2025 1 1 Encounter Details Date Type Department Care Team (Latest Contact Info) Description 12/20/2023 3:15 PM MEDICAL TECHNICAL WRITER - 12/20/2023 11:59 PM MEDICAL TECHNICAL WRITER Hospital Encounter [facility] Card[facility] [address] [place] [address] Lower extremity edema Discharge Disposition: Discharge to home or self care Social History Tobacco Use Types Packs/Day Years Used Date Smoking Tobacco: Former Cigarettes 1 11 1 969 1979 Passive Smoke Exposure: Never Smokeless Tobacco: Never Alcohol Use Standard Drinks/Week Comments Yes 14 (1 standard drink = 0.6 oz pu re alcohol) social [facility] Utilities Answer Date Recorded In the past 12 months has th e [employer], gas, oil, or water [employer] threatened to shut off services in your [...] week 11/30/2023 How often do you attend [facility] or muslim services? 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 on file Not on file Not [...] DOPPLER/CF W CONTRAST Routine 12/20/2023 4:16 PM MEDICAL TECHNICAL WRITER Lower extremity edema documented in this encounter Results * TRANSTHORACIC ECHO (TTE) LIMITED/FOLLOW UP W LTD DOPPLER/CF W CONTRAST (12/20/2023 4:16 PM MEDICAL TECHNICAL WRITER) LV EF 55 % CARDIOREPORT Anatomical Region Laterality Modality Ultrasound 12/20/2023 3:15 PM MEDICAL TECHNICAL WRITER Narrative 12/20/2023 4:36 PM MEDICAL TECHNICAL WRITER Patient name: Hira Evans Date of test: 12/20/2023 Type of test: [facility] #: 0 Date of : 1950 (M) Tire Builder Operator: Mikayla Saravia RDCS Referring Physician: TAE RAMOS MD Contrast Agent: 0.30 ml Definity Administered, (1.20 ml wasted). Contrast Administered by: Shani Youngblood RN Supervised/Interpreted by: Anibal Heath MD Diagnosis: Edema Location: [facility] Reason for test: Edema MV Structure: normal, [...] 2=Hypo 3=Akinetic 4=Dyskin./Aneurysm 0=Not visualized) Parasternal Long [place]:MAS=1 BAS=1 MIL=1 RENEE=1 Parasternal Short [place]:MAS=1 MIS=1 DE=1 MIL=1 MAL=1 MA=1 Apical 4 [...] MD By signing this report, the attending solution consultant certifies that he or she has personally supervised and interpreted the echocardiogram and has reviewed and or edited and agrees with the written comments contained within the report. Procedure Note Hernán Heath MD - 12/20/2023 Patient name: Hira Evans Date of test: 12/20/2023 Type of test: Limited TTE [facility] #: 0 Date of : 1950 (M) [employer] Operator: Mikayla Saravia RDCS Referring Physician: TAE RAMOS MD Contrast Agent: 0.30 ml Definity Administered, (1.20 ml wasted). Contrast Administered by: Shani Youngblood RN Supervised/Interpreted by: Anibal Heath MD Diagnosis: Edema Location: [facility] Reason for test: Edema MV Structure: normal, [...] 2=Hypo 3=Akinetic 4=Dyskin./Aneurysm 0=Not visualized) Parasternal Long [place]:MAS=1 BAS=1 MIL=1 RENEE=1 Parasternal Short [place]:MAS=1 MIS=1 DE=1 MIL=1 MAL=1 MA=1 Apical 4 [...] MD By signing this report, the attending solution consultant certifies that he or she has [...] (CV) Given by Other 12/20/2023 4:16 PM MEDICAL TECHNICAL WRITER 2 mL documented in this encounter Orders Medications Ordered That Armando ht Not Have Been Administered Count Last Ordered Date First Ordered Date perflutren lipid (DEFINITY) 1.5 mL in sodium chloride 0.9% 10 mL syringe 1 12/20/2023 documented in this encounter Care Teams Meat Inspector Relationship Specialty Start Date End Date Rl Medina DO [address] [place] [address] PCP - General 08/09/17 05/25/24 documented as of this encounter
--- OUTSIDE RECORDS SUMMARY | 2024-11-05 22:58 | XMS_ITS | Encounter Summary ---
Author Organization [facility] Healthcare Address [address] [place] [address] Care Team Providers Care Bill Sorter Name Role Phone Rl Medina DO Primary Care Provider Reason for Visit * Auth/Cert (Routine) Specialty Diagnoses / Procedures Referred By Contac t Referred To Contact Diagnoses Kidney stone Kidney stone [N20.0] Procedures MA CYSTOURETHROSCOPY CYSTOSCOPY PYELOGRAM - RETROGRADE URETEROSCOPY LITHOTRIPSY - LASER EXCHANGE STENT - URETERAL Referral ID Status Reason Start Date Expiration Date Visits Re quested Visits Authorized [id number] 1 1 Encounter Details Date Type Department Care Team (Late st Contact Info) Description 12/25/2023 7:30 AM CRM CAMPAIGN MANAGER - 12/25/2023 9:30 AM CRM CAMPAIGN MANAGER Surgery [facility] Operating Room [address] [place] [address] Temo Mcintosh MD [address] [place] [address] CYSTOSCOPY Surgery Details Date/Time Status Location OR Service Patient Class Case Cl ass Case Type Trauma Case? 12/25/2023 7:30 AM Posted [facility] OR POD 1 325 Urology Outpatient [...] = 0.6 oz pu re alcohol) social [facility] Utilities Answer Date Recorded In [...] attend chur ch or uatsdin services? 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 Not on file Not on file Not on file documented as of this encounter Last Filed Vital Signs Vital Sign Reading Time Taken Comments Blood Pressure 117/72 12/25/2023 9:30 AM CRM CAMPAIGN MANAGER Pulse 56 12/25/2023 9:30 AM CRM CAMPAIGN MANAGER Temperature 36 ??C (96.8 ??F) 12/25/2023 9:30 AM CRM CAMPAIGN MANAGER Respiratory Rate 16 12/25/2023 9:30 AM CRM CAMPAIGN MANAGER Oxygen Saturation 99% 12/25/2023 9:30 AM CRM CAMPAIGN MANAGER Inhaled Oxygen Concentration - - Weight 90.7 kg (200 lb) 12/11/2023 5:08 PM CRM CAMPAIGN MANAGER Height 172.7 cm (5' 8 ) 12/11/2023 5:08 PM CRM CAMPAIGN MANAGER Body Mass Index 30.41 12/24/2023 1:58 PM CRM CAMPAIGN MANAGER documented in this encounter Discharge Summaries * Angela Paz MD - 12/27/2023 11:39 AM CST Inpatient Discharge Summary BRIEF OVERVIEW Admitting Provider: Temo Mcintosh MD Discharge Provider: Temo Mcintosh MD Primary Care Physician at Discharge: Rl MedinaDO [phone] Admission Date: 12/25/2023 Discharge Date: 12/27/2023 Admission Location: [facility] Problems/Diagnoses: Principal Problem: Kidney stone Active Problems: [...] Temo Mcintosh MD at 12/27/2023 12:38 PM CRM CAMPAIGN MANAGER CAMPAIGN MANAGER CAMPAIGN MANAGER documented in this encounter Discharge Instructions * Discharge Instructions* Angela Paz MD - 12/25/2023 7:03 AM CRM CAMPAIGN MANAGER Diagnosis:Left ureteral stricture Procedure:Left nephrostomy tube placement [...] Interventional Radiologist at [facility] call [phone] Sunday through Sunday from 7:30am-4:30pm. At all other times call [phone] and ask that the Interventional Radiologist be paged. To contact an Interventional Radiologist at [facility] call [phone] Sunday through Sunday from 7:30am-3:30pm. Special instructions: [...] your condition worsens. Temo Mcintosh MD Urology [employer] [facility] [employer] [facility], [address] [place] [address] For appointments: [phone] My real estate assistant - Luciana [phone] For after hours emergencies: [phone] CAMPAIGN MANAGER CAMPAIGN MANAGER CAMPAIGN MANAGER CAMPAIGN MANAGER documented in this encounter Medications at Time [...] CST 12/25/23 1401 Discharge Summary Discharge Disposition custodial facility (short term care) Specify Facility [facility] Contact Number Report: [phone] Discharge Records Chart Copied Discharge Additional Assistance Does the patient need discharge transport arranged? Yes Has discharge transport been arranged? Yes Details of Transportation Khadra Goff [phone] trip #[id number] D/C Transport Anticipated Date 12/27/23 D/C Transport [...] at this time. Patient has been acceptedto [facility]. CM spoke with the patient/family, admissions, medical [...] Patient/family informed patient may require ambulance transport. manager search informed patient/family that even if the patient's insurance benefit includes ambulance transport, it may not cover the full cost of the transportation. The patient may be responsible for any wyy-sn-giczzp cost, includingmileage beyond the nearest appropriate facility. Patient/family voiced understanding. CAMPAIGN MANAGER * Estella Maxwell RN - 12/27/2023 8:24 AM CST 12/27/23 0824 Communications Important Message from Medicare notice given to patient? Yes IM letter completed with patient/employer relations representative at bedside. Patient/employer relations representative were informed ofthe planned discharge date, the date the beneficiary's financial liability begins, the beneficiary's appeal rights, and how and when to initiate an appeal. Patient/employer relations representative were provided a copy of the IM letter and IM letter was placed in unit???s designated medical record bin to be uploaded into the patient???s chart. CAMPAIGN MANAGER * Tavo Vance MD - 12/27/2023 6:30 AM CST Images from the original note were not included. 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 Status post left 10Fr Broomfield nephrostomy tube on 12/26/2023. Interval History: No acute events. Not endorsing pain. Exam: General: alert & oriented X 3, NAD Skin: warm and well perfused C/V: normal rate and rhythm Pulm: normal respirations, symmetric chest rise, nonlabored breathing Abdomen: soft, NT/ND, left flank 10 Fr Broomfield nephrostomy tube draining pink/blood-tinged urine. Shook draining [...] left ureteral stricture. Status post left 10Fr Broomfield nephrostomy tube on 12/26/2023. - Please continue to document output - IR follow-up scheduled for 02/05/2024 for possible internalization or nephrostomy tube change Plan discussed with IR attending, Dr. Crum. Tavo Vance MD PGY-2, Interventional Radiology Service CAMPAIGN MANAGER CAMPAIGN MANAGER * Dolores Gonzalez, BUTTON STATION WORKER - 12/26/2023 2:02 PM CST Images from [...] therapeutic SQ lovenox (held for procedure) [facility] 12/26/2023 Cosigned by Temo Mcintosh MD at 12/26/2023 5:10 PM CRM CAMPAIGN MANAGER CAMPAIGN MANAGER CAMPAIGN MANAGER Associated attestation - Temo Mcintosh MD - 12/26/2023 5:10 PM CRM CAMPAIGN MANAGER I have seen and examined the patient on 12/26/23. I agree with the findings and plan of care as documented in the resident's/fellow's note. -- Will plan on delayed internalization to an indwelling ureteral stent per IR recommendations (estimated in 4-6 weeks) -- My clinical suspicion is that the heavily impacted ureteral stone resulted in a high-grade ureteral stricture. snf management will be either scheduled stent exchanges [...] w/c Prior Function Prior Function Level of [place]: Needs assistance with functional transfers, Independent with wheelchair Lives With: Spouse Receives Help From: Spouse/Significant other (hr business partner assist available) Fall within the last 6 [...] from sit to supine 12/26/23 01/02/24 -- CAMPAIGN MANAGER * Galina Stoddard, OT - 12/26/2023 10:16 [...] independence in ADLs. Pt in agreement with [place] rec at this time. Treatment/Interventions during current [...] base Prior Function Prior Function Level of [place]: Needs assistance with ADLs, Needs assistance with homemaking Lives With: Spouse Receives Help From: Spouse/Significant other (hr business partner assist) ADL Assistance: Independent Instrumental ADL (IADL) [...] required assist to lift BLE to utilize sales performance manager to doff sock) LE Dressing: Equipment Utilized: Spear Fisher Toilet Transfers Toilet Transfers: Not tested Pain [...] name and address after me: Marcial Reddy [address] [place] [address] Without looking at the clock, tell me [...] independence in ADLs. Pt in agreement with [place] rec at this time. OT Goals Multi-Disciplinary [...] not assigned to this patient, please call [phone]. CAMPAIGN MANAGER * Nichole Mitchell MD - 12/25/2023 10:59 [...] number for questions about this patient's care. CAMPAIGN MANAGER documented in this encounter H&P Notes * [...] Temo Mcintosh MD at 12/25/2023 7:00 AM CRM CAMPAIGN MANAGER CAMPAIGN MANAGER CAMPAIGN MANAGER Source Note - Sethlisandro Tamia Lana, BUTTON STATION WORKER - 12/19/2023 8:16 AM CRM CAMPAIGN MANAGER Images from the original note were not included. Center for Preoperative Assessment and Planning Preoperative Evaluation Record Evaluation type/location: TPAP from [facility] Planned procedure site: [facility] PVT OR (Pod 1) Date: 12/19/23 [...] were provided via telephone and faxed to [facility]. Patient verbalized understanding of DOS instruction. [...] of new anasarca. Spoke with MD at [facility]- will place order. Surgeon's office notified pt will need repeat TTE. -->Recommend holding Lovenox on morning of surgery only and resuming ANSELMO postoperatively. Instructed provided to [facility] staff. Semanticator message sent to surgeon's office to make [...] 0.76 mg/dL (L) Joni index score: 55 CAMPAIGN MANAGER CAMPAIGN MANAGER documented in this encounter Nursing Notes * Kishan Hanson RN - 12/27/2023 12:58 PM CST Pt is being discharged today, transferring to a SNF. NARENDRA Atkinson at [facility] was given reportregardign this pt. Ambulance pickup at 2PM. VSS, AOx4, tolerates diet well. Pt will be given CHG bath prior leaving. Pt going to SNF with L nephrostomy tube. Shook was removed as per order. CAMPAIGN MANAGER documented in this encounter Miscellaneous Notes * [...] resulting LE paralysis ??? prefers discharge to [facility] ???Functional status: bedbound Additional Information: Patient typically [...] become part of the patient's medical record. CAMPAIGN MANAGER * ACP (Advance Care Planning) - Nora Last LCSW - 12/27/2023 11:03 AM CRM CAMPAIGN MANAGER Advance Care Planning Advance Care Planning Conversation The patient and/or family consented to a voluntary Advance Care Planning conversation. Individuals present for the conversation: patient Advance Directive: Yes On file: Yes Power of Service Trainer Name: Val Evans Relationship: Spouse Summary of [...] ongoing clinical care only. Nora Last LCSW CAMPAIGN MANAGER * Initial Assessments - Nora Last LCSW - 12/27/2023 10:59 AM CRM CAMPAIGN MANAGER Social Work Assessment Clinical Dx: Nephrolithiasis Past [...] other Type of Residence: Private residence Income: [facility] Income Comment: Patient is retired Financial assistance: [...] Family Perspective: BIBI Do you have a Scientologist Preference or Affiliation?: Yes Preference/Affiliation : Atheist Are there any Scientologist Practices that are important to maintain while [...] More than three times a week Attends Scientologist Services: Never Active Member of Clubs or [...] 1% Active ulcer inpatient medication order present [facility] Lumbar Disc Herniation s/p decompression surgery 10/2023 c/b cardiac arrest post-op and hematoma s/p evacuation (11/07/23) with resulting LE paralysis, DVT/PE s/p IVC filter (not on A/C currently), HTN. The patient is a 73 year-old male who was readmitted to [facility] for scheduled cystoscopy, left ureteroscopy, left retrograde [...] or food insecurity. Patient has the insurance [facility] Medicare. Patient declined to be provided with any community resources at this time. No further Social Work interventions identified. Social Work will sign off. Nora Last LCSW CAMPAIGN MANAGER * Plan of Care - Bharti Viramontes [...] and nephrostomy care completed, frequent turns completed CAMPAIGN MANAGER * Plan of Care - Kishan Hanson [...] VSS, AOx4, transferred to a specialty bed. CAMPAIGN MANAGER * Plan of Care - Estella Maxwell RN - 12/26/2023 3:00 PM CST called and spoke with Torey from [facility] ([phone]). Patient is OK for discharge tomorrow. Report: [phone] CAMPAIGN MANAGER * Post-Procedure Note - Dennis Albarado MD - 12/26/2023 1:05 PM CRM CAMPAIGN MANAGER Radiology Brief Post Procedure Note Attending: Dr. Romero Water Purifier: Dr. Albarado Sedation/Anesthesia: Min Sedation Pre-Op/Pre-Procedure Diagnosis: [...] None Condition: Stable Full report to follow. CAMPAIGN MANAGER * Plan of Care - Estella Maxwell RN - 12/26/2023 9:43 AM CST Per Medical Chart/Rounds/IDR: Patient admitted with stone, plan for left nephU tube placement in . He is not medically ready for discharge to SNF. ADD: 12/27 Plan & referrals made/in place: CM left voicemail for Torey with [facility] ([phone]). [facility] Torey [phone] Support following discharge: facility staff; spouse Val Evans [phone]; son Marcial Evans [phone] Transportation: ambulance F/U Appointments: per medical team Patient's Identified Problem/Goal Problem: Ensure acute medical needs are met and that patient has a safe discharge plan. Goal: Secure a discharge plan that patient/family are agreeable with and ensure patient has continuum of care. Patient and/or family are agreeable with plan. manager search will continue to follow and assist with discharge planning as needed. If any further discharge needs arise, please contact the covering director of casework department. CAMPAIGN MANAGER * Pre-Procedure Note - Cici Garces MD - 12/26/2023 5:56 AM CRM CAMPAIGN MANAGER PRE-SEDATION ASSESSMENT/H&P Patient is a 73 y.o. [...] Noted Nephrolithiasis 12/25/2023 DVT (deep venous thrombosis) ([facility]) ([facility]) 11/29/2023 Anemia 11/29/2023 Paraspinal hematoma 11/29/2023 Hyponatremia 11/29/2023 Elevated transaminase level 11/29/2023 Lower extremity edema 11/29/2023 Scrotal swelling 11/29/2023 Seizure ([facility]) 11/29/2023 Prediabetes 11/29/2023 Kidney stone 11/09/2023 Paralysis of both lower limbs ([facility]) ([facility]) 11/07/2023 Pulmonary embolism ([facility]) 10/26/2023 S/P spinal fusion 10/23/2023 Cardiac arrest ([facility]) 10/23/2023 Left perinephric collection, 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 10/15/2023 Ureteral colic 10/13/2023 UTI (urinary tract infection) 10/13/2023 Hydronephrosis with urinary obstruction due to renal calculus 10/12/2023 Lumbar radiculopathy 10/08/2023 Gross hematuria 10/18/2022 Bladder neck obstruction 10/17/2022 Lesion of urinary bladder 10/17/2022 Prostate cancer ([facility]) 10/17/2022 HTN (hypertension) 10/10/2021 Risk factors for obstructive sleep apnea 10/10/2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 Patient or employer relations representative was informed that the provider getting consent may not be the same provider performing procedure. All questions answered and agree to proceed. Cici Knight MD 12/26/2023 11:32 AM CAMPAIGN MANAGER CAMPAIGN MANAGER * Plan of Care - Bharti Viramontes [...] bed ordered since patient is bed bound CAMPAIGN MANAGER * Plan of Care - Estella Maxwell RN - 12/25/2023 3:05 PM CST LUIS received call from Jennifer with [facility]. Patient was anticipated to discharge from [facility] to [facility] tomorrow. There was a peer to peer today that was approved for SNF. [facility] provided contact information for facility. [facility] Torey [phone] ECIN referral placed. LUIS called and spoke with Torey who is going to make sure that insurance auth is valid for patient to discharge from hospital vs discharge from rehab. CAMPAIGN MANAGER * Initial Assessments - Estella Maxwell RN - 12/25/2023 2:04 PM CST LUIS Initial Assessment Interview Note Information Obtained From: Patient (at bedside) (12/25/23 1401) Admission Source: [facility] Impression: 73 year old male admitted following cystosopy, retrograde pyelogram, ureteroscopy for stone extraction. PMH Lumbar Disc Herniation s/p decompression surgery 10/2023 c/b cardiac arrest post-op and hematoma s/p evacuation (11/07/23) with resulting LE paralysis, DVT/PE s/p IVC filter (not on A/C currently), HTN. Plan Includes: Patient would prefer to discharge to [facility]. He states they submitted an appeal to insurance yesterday. If insurance denies, he would prefer to discharge to [facility]. He will need ambulance transportation at discharge. CM called and left voicemail for Jennifer with [facility] to follow up on appeal/rehab status. ECIN referral placed to [facility]. Primary Source of Transportation: Does the patient need discharge transport arranged?: Yes Details of Transportation: Ambulance (12/25/231400) Health Insurance Coverage: [facility] Medicare Prescription Coverage: yes Pharmacy: verified [facility] - [place], [place] - [address] [address] [address] [facility] [address] Primary Care Provider: Rl Barnett DO Prior to Admission: Functional Status: Bedbound Primary Caregiver: Facility staff Support System: Spouse/Significant Other, Children (spouse Val Evans [phone]; son Marcial Evans [phone]) Home Care Services: No Outpatient Services: No [...] Collaboration with patient, MD, direct care nurse, Sap Ppm Consultant, and other members of the health care team to assure needed interventions completed. 2. Return patient to optimal level of self-care post discharge. 3. Sushi Chef will follow for Discharge Planning - interventions [...] with the aftercare plan. Estella Maxwell RN CAMPAIGN MANAGER * Plan of Care - Katharine Montgomery [...] from PACU. Monitor I&Os. Pain controlled. VSS. CAMPAIGN MANAGER * Op Note - Temo Mcintosh MD [...] the entire procedure (including opening and closing). CAMPAIGN MANAGER * Perioperative Nursing Note - Crystal Sprague RN - 12/12/2023 3:27 PM CST Center for Preoperative Assessment and Planning Perioperative Nursing Note Telephone Preoperative Evaluation ([facility]) - TELEPHONE ONLY, NO PHYSICAL EXAM [...] Radiopaque Preblend Cement Bone Tobramycin - S0- [id number] - Implanted (Right) Knee Inventory item: [employer] Simplex P Full Dose Radiopaque Preblend Cement Bone [id number] Model/Cat number: [id number] Serial number: 0 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: [employer] Lot number: [id number] Device identifier: [id number] Device identifier type: GS1 As of 09/30/2019 Status: Implanted Other - see comments [employer] [id number] Kandace II 15mm Constrain Knee 5-6 Insert Articular Uhmwpe- S0 - [id number] - Implanted (Right) Knee Inventory item: [employer] Kandace Ii 15mm Constrain Knee 5-6 Insert ArticularUhmwpe [id number] Model/Cat number: [id number] Serial number: 0 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: [employer] Lot number: [id number] As of 09/30/2019 Status: Implanted [employer] [id number] Legion 10mm Screw Knee 6 Wedge Femoral - S0 - [id number] -Implanted (Right) Knee Inventory item: [employer] Legion 10mm Screw Knee 6 Wedge Femoral [id number] Model/Cat number: [id number] Serial number: 0 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: [employer] Device identifier: [id number] Device identifier type: [facility] As of 09/30/2019 Status: Implanted [employer] [id number] Legion Constrain Knee Right 6 Component Femoral Oxinium - S0 - [id number] - Implanted (Right) Knee Inventory item: [employer] Legion Constrain Knee Right 6 Component Femoral Oxinium [id number] Model/Cat number: [id number] Serial number: 0 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: [employer] Lot number: [id number] As of 09/30/2019 Status: Implanted [employer] [id number] Legion 5mm Alcon Step Knee Right Medial Left Lateral 5-6 Wedge - S0 - [id number] - Implanted (Right) Knee Inventory item: [employer] Legion 5mm Alcon Step Knee Right Medial Left Lateral5-6 Wedge [id number] Model/Cat number: [id number] Serial number: 0 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: [employer] Device identifier: [id number] Device identifier type: [facility] As of 09/30/2019 Status: Implanted [employer] [id number] Legion 15mm 160mm Press Fit Knee Stem Femoral - S0 - [id number] - Implanted (Right) Knee Inventory item: [employer] Legion 15mm 160mm Press Fit Knee Stem Femoral [id number] Model/Cat number: [id number] Serial number: 0 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: [employer] Lot number: [id number] As of 09/30/2019 Status: Implanted [employer] [id number] Legion 10mm Screw Knee 6 Wedge Femoral - S0 - [id number] -Implanted (Right) Knee Inventory item: [employer] Legion 10mm Screw Knee 6 Wedge Femoral [id number] Model/Cat number: [id number] Serial number: 0 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: [employer] Lot number: [id number] As of 09/30/2019 Status: Implanted [employer] [id number] Legion Revision Knee Right 5 Baseplate Tibial - S0 - [id number] - Implanted (Right) Knee Inventory item: [employer] Legion Revision Knee Right 5 Baseplate Tibial [id number] Model/Cat number: [id number] Serial number: 0 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: [employer] Lot number: [id number] Device identifier: [id number] Device identifier type: GS1 As of 09/30/2019 Status: Implanted [employer] [id number] Legion 15mm 160mm Press Fit Knee Stem Femoral - S0 - [id number] - Implanted (Right) Knee Inventory item: [employer] Legion 15mm 160mm Press Fit Knee Stem Femoral [id number] Model/Cat number: [id number] Serial number: 0 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: [employer] Lot number: [id number] Device identifier: [id number] Device identifier type: 1 As of 09/30/2019 Status: Implanted [employer] 5517-F-501 Triathlon Cruciate Retain Bead Knee Left 5 Component Femoral Pa - Sn/A - [id number] - Implanted (Left) Knee Inventory item: [employer] Triathlon Cruciate Retain Bead Knee Left 5 Component Femoral Pa 5517-F-501 Model/Cat number: [id number] Serial number: N/A 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: [employer] Lot number: [id number] Device identifier: [id number] Device identifier type: GS1 As of 10/17/2021 Status: Implanted [employer] 5536-B-600 Triathlon Knee 6 Baseplate Tibial Tritanium - Sn/A - [id number] - Implanted (Left) Knee Inventory item: [employer] Triathlon Knee 6 Baseplate Tibial Tritanium 5536-B-600 Model/Cat number: [id number] Serial number: N/A 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: [employer] Lot number: [id number] Device identifier: [id number] Device identifier type: GS1 As of 10/17/2021 Status: Implanted [employer] 0639-O-884-[id number] Insert Tibial Triathlon 6 H10mm Knee Bearing Condylar Stabilize Sterile - Sn/A - [id number] - Implanted (Left) Knee Inventory item: [employer] Insert Tibial Triathlon 6 H10mm Knee Bearing Condylar Stabilize Sterile 3948-B-531-[id number] Model/Cat number: [id number] Serial number: N/A 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: [employer] Lot number: [id number] Device identifier: [id number] Device identifier type: GS1 As of 10/17/2021 Status: Implanted Stent [employer] 6fr 28cm Firm Positioner Monofilament Tether Stent [id number] - [id number] -Implanted (Left) Ureter Inventory item: [employer] UNIVERSA 6FR 28CM FIRM POSITIONER MONOFILAMENT TETHER STENT [id number]/Cat number: [id number] 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: [employer] Lot number: [id number] Size: 6x28 Device identifier: [id number] Device identifier type: GS1 As of 10/18/2023 Status: Implanted Type Not Specified [employer] 6197-9-010 Simplex P Full Dose Radiopaque Preblend Cement Bone Tobramycin - [id number] - Implanted (Right) Knee Inventory item: [employer] Simplex P Full Dose Radiopaque Preblend Cement Bone [id number] Model/Cat number: [id number] 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: [facility] Device identifier: [id number] Device identifier type: GS1 As of 09/30/2019 Status: Implanted [employer] Crushed Chip Frozen Graft 30ml Bone Cancellous [id number] - [id number] - Implanted Spine Lumbar Inventory item: [employer] Crushed Chip Frozen Graft 30ml Bone Cancellous [id number] Model/Cat number: [id number] 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: [employer] Lot number: [id number] As of 10/23/2023 Status: Implanted [employer] Allograft Bone Putty 2.5cc 700-025 - [id number] - Implanted Spine Lumbar Inventory item: [employer] Allograft Bone Putty 2.5CC 700-025 Model/Cat number: [id number] 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: [employer] Lot number: [id number] Device identifier: [id number] Device identifier type: GS1 As of 10/23/2023 Status: Implanted [employer] Creo Od7.5 Mm L55 Mm Thread Polyaxial Spine Screw Bone Titanium 5146.1757 - [id number] - Implanted Spine Lumbar Inventory item: [employer] Creo Od7.5 Mm L55 Mm Thread Polyaxial Spine Screw Bone Titanium 5146.1757 Model/Cat number: [id number] 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: [employer] As of 10/23/2023 Status: Implanted [employer] Creo Od7.5 Mm L50 Mm Thread Polyaxial Spine Screw Bone Titanium 5146.1752 - [id number] - Implanted Spine Lumbar Inventory item: [employer] Creo Od7.5 Mm L50 Mm Thread Polyaxial Spine Screw Bone Titanium 5146.1752 Model/Cat number: [id number] 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: [employer] As of 10/23/2023 Status: Implanted [employer] Creo Thread Spinal Cap Locking Nonsterile 1119.0010 - [id number] - Implanted Spine Lumbar Inventory item: [employer] Creo Thread Spinal Cap Locking Nonsterile 1119.0010 Model/Cat number: [id number] 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: [employer] As of 10/23/2023 Status: Implanted [employer] Implant Spinal Sable [id number] 7-14mm 15 Deg 1172.2121s - [id number] - Implanted Spine Lumbar Inventory item: [employer] Implant Spinal Sable [id number] 7-14mm 15 Deg 1172.2121S Model/Cat number: [id number] 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: [employer] As of 10/23/2023 Status: Implanted [employer] Creo 5.5mm 45mm Curve Daniel Spinal Titanium 1119.7045 - [id number] - Implanted Spine Lumbar Inventory item: [employer] Creo 5.5mm 45mm Curve Daniel Spinal Titanium 1119.7045 Model/Cat number: [id number] 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: [employer] As of 10/23/2023 Status: Implanted [employer] Rex Tulip Navalign 30mm 7fr 50mm 65cm Introducer Sheath [id number] - [id number] -Implanted Inventory item: [employer] Rex Tulip Navalign 30mm 7fr 50mm 65cm Introducer Sheath [id number]/Cat number: [id number] 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: [employer] Lot number: [id number] As of 11/09/2023 Status: Implanted SKIN Piercings Remaining: No Wound (LDAs) Type of Wound (LDA): (patient denies) SCREENINGS Joni index score: 55 PATIENT CARE PLANNING Advance Directives (For Healthcare) Have you reviewed your Advance Directive and is it valid for this stay?: Yes Advance Directive: Patient has advance directive, copy in chart Type of Healthcare Directive: Durable power of defense attorney for health care Communication/Pressing Department Supervisor Needs Communication Barriers: Visual Communication Needs: Glasses Assistive Devices/DME: Eyeglasses, Motorized wheelchair Hearing - Right Ear: Functional Hearing - Left Ear: Functional Discharge Planning Type of Residence: Other (Comment) (Rehab) Living Arrangements: Other (Comment) (rehab) Support Systems: Family members, Friends/neighbors, Spouse/significant other Patient expects to be discharged to:: Acute Rehab (Rehab facility will provide transportation to and from surgery.) 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 You should leave your valuables and any jewelry at home. No metal or piercings are allowed in the operating room. You should bring your insurance card, a photo ID (example: [employer] Yarder's License) and a method of payment for [...] If you are having surgery at [facility], please arrive on the day of [...] Pathway to Excellent Care by the followinglink: [email or web address] How To Prepare Your Skin For Surgery [...] Remove nail coverings, artificial nails and nail guinean. Place clean linens on your bed the [...] questions, please call the CPAP Staff at [phone], Sunday-Sunday 8am-4:30pm. All patients should read the below section: COVID 19 Updates & Visitor Policy: Please access [email or web address] for the most updated information. Information on [facility]: Please view [email or web address] (Patient & Visitor Information) for additional details regarding Advanced Directive forms, AWARE, directions, parking information, lodging, Internet access, dining and more. Information on [facility] or [facility] [place] ([facility]): Please view [email or web address] (Patient and Visitor Information) for parking/directions and more. For MyChart information, to activate account or password recovery, please go to [email or web address] or call [phone] (toll-free: [phone]), Sun- Sunday 8am-5pm. Information for Suicide Prevention: National Suicide Prevention [employer] (9-234- 767-MPEW (3232)) or call or text 333. Chat resources: [employer]Mevio. Surgery Times: For patients having surgery @ [facility] or [facility] [place] ([facility]), if your surgeon's office has not notified you of your surgery time by NOON THE BUSINESS DAY BEFORE your surgery, please call [phone] and ask for your surgeon's office Dr. Mcintosh. The Center for Preoperative Assessment & Planning ([facility]) does not provide arrival times for the day of surgery or provide the duration of surgery. This information is provided by your surgeon'soffice or by the center where you are having surgery. We appreciate your understanding. CAMPAIGN MANAGER documented in this encounter Plan of Treatment Not on file documented as of this encounter Procedures Procedure Name Priority Date/Time Associated Diagnosis Comments EGFR Timed 12/27/2023 12:19 AM CRM CAMPAIGN MANAGER CBC WITHOUT DIFFERENTIAL Timed 12/27/2023 12:19 AM CRM CAMPAIGN MANAGER PHOSPHORUS Timed 12/27/2023 12:19 AM CRM CAMPAIGN MANAGER MAGNESIUM Timed 12/27/2023 12:19 AM CRM CAMPAIGN MANAGER BASIC METABOLIC PANEL Timed 12/27/2023 12:19 AM CRM CAMPAIGN MANAGER PERCUTANEOUS NEPHROSTOMY PCN LEFT ED Urgent/IP Urgent 12/26/2023 1:00 PM CRM CAMPAIGN MANAGER EGFR Routine 12/26/2023 12:08 AM CRM CAMPAIGN MANAGER APTT Routine 12/26/2023 12:08 AM CRM CAMPAIGN MANAGER PROTIME-INR Routine 12/26/2023 12:08 AM CRM CAMPAIGN MANAGER CBC WITHOUT DIFFERENTIAL Routine 12/26/2023 12:08 AM CRM CAMPAIGN MANAGER PHOSPHORUS Routine 12/26/2023 12:08 AM CRM CAMPAIGN MANAGER MAGNESIUM Routine 12/26/2023 12:08 AM CRM CAMPAIGN MANAGER BASIC METABOLIC PANEL Routine 12/26/2023 12:08 AM CRM CAMPAIGN MANAGER CT UROGRAM W 3D ED Urgent/IP Urgent 12/25/2023 4:23 PM CRM CAMPAIGN MANAGER FL FLUOROSCOPY < 1 HOUR IP Routine 12/25/2023 8:21 AM CRM CAMPAIGN MANAGER URETEROSCOPY 12/25/2023 7:28 AM CRM CAMPAIGN MANAGER Kidney stone PYELOGRAM - RETROGRADE 12/25/2023 7:28 AM CRM CAMPAIGN MANAGER Kidney stone CYSTOSCOPY 12/25/2023 7:28 AM CRM CAMPAIGN MANAGER Kidney stone documented in this encounter Results * eGFR (12/27/2023 12:19 AM CRM CAMPAIGN MANAGER) Pathologist [facility] eGFR >90 >=60 mL/min/1. 73 m2 LAURA [...] reviewed 2021. Blood 12/27/2023 12:1 9 AM CRM CAMPAIGN MANAGER 12/27/2023 12:52 AM CRM CAMPAIGN MANAGER Temo Mcintosh MD LAB BLOOD ORDERABLES Fin al Result Performing Organization Address [facility] de Phone Number [facility] [place] [employer] [place] [place] [address] * Phosphorus (12/27/2023 12:19 AM CRM CAMPAIGN MANAGER) Pathologist [facility] Phosphorus, pl 3.1 2.3 - 4.5 mg/dL [facility] Blood 12/27/2023 12:1 9 AM CRM CAMPAIGN MANAGER 12/27/2023 12:52 AM CRM CAMPAIGN MANAGER Temo Mcintosh MD LAB BLOOD ORDERABLES Fin al Result Performing Organization Address [facility] de Phone Number [facility] [place] [address] * Magnesium (12/27/2023 12:19 AM CRM CAMPAIGN MANAGER) Pathologist [facility] Magnesium 2.0 1.4 - 2.5 mg/dL [facility] Blood 12/27/2023 12:1 9 AM CRM CAMPAIGN MANAGER 12/27/2023 12:52 AM CRM CAMPAIGN MANAGER Temo Mcintosh MD LAB BLOOD ORDERABLES Fin al Result Performing Organization Address [facility] de Phone Number [facility] [place] [address] * (ABNORMAL) Basic metabolic panel (12/27/2023 12:19 AM CRM CAMPAIGN MANAGER) Pathologist [facility] Sodium 140 135 - 145 mmol/L [facility] Potassium, pl 3.4 3.3 - 4.9 mmol/L [facility] Chloride 102 97 - 110 mmol/L [facility] CO2 29 22 - 32 mmol/L [facility] Anion gap 9 2 - 15 mmol/L [facility] BUN 12 6 - 25 mg/dL [facility] Creatinine 0.78(L) 0.80 - 1.30 mg/dL [facility] Glucose 123 70 - 199 mg/dL [facility] Comment: Interpretive Data Fasting glucose >/= 126 [...] 2022. Calcium 8.6 8.5 - 10.3 mg/dL [facility] Blood 12/27/2023 12:1 9 AM CRM CAMPAIGN MANAGER 12/27/2023 12:52 AM CRM CAMPAIGN MANAGER Temo Mcintosh MD LAB BLOOD ORDERABLES Fin al Result Performing Organization Address [facility]/ZIP Co de Phone Number [facility] [place] [address] * (ABNORMAL) CBC without differential (12/27/2023 12:19 AM CRM CAMPAIGN MANAGER) WBC 7.4 3.8 - 9.9 K/cumm [facility] Hgb 10.1(L) 13.0 - 17.5 g/dL [facility] Hct 30.8(L) 38.9 - 50.3 % [facility] Plt 158 150 - 400 K/cumm [facility] MPV 11.5 9.1 - 12.3 fL [facility] RBC 3.34(L) 4.30 - 5.80 M/cumm [facility] MCV 92.2 81.3 - 96.4 fL [facility] MCH 30.2 27.1 - 33.3 pg [facility] MCHC 32.8 32.3 - 35.7 g/dL [facility] RDW CV 14.2 11.1 - 14.9 % [facility] RDW SD 48.2(H) 35.7 - 48.1 fL [facility] NRBC abs 0.00 0.00 - 0.01 K/cumm [facility] Blood 12/27/2023 12:1 9 AM CRM CAMPAIGN MANAGER 12/27/2023 12:52 AM CRM CAMPAIGN MANAGER Temo Mcintosh MD LAB BLOOD ORDERABLES Fin al Result Performing Organization Address [facility] Co de Phone Number [facility] [place] [address] * IR Percutaneous Nephrostomy Left (12/26/2023 1:00 PM CRM CAMPAIGN MANAGER) Anatomical Region Laterality Modality Body Left Ultrasound 12/26/2023 3:27 PM CRM CAMPAIGN MANAGER Impressions 12/26/2023 4:49 PM CRM CAMPAIGN MANAGER Successful left 10-Niuean percutaneous nephrostomy tube placement. [...] Cici Romero MD Narrative 12/26/2023 4:49 PM CRM CAMPAIGN MANAGER EXAMINATION : LEFT PERCUTANEOUS NEPHROSTOMY CATHETER PLACEMENT [...] was obtained. Prior to beginning the procedure, [place] Protocol was performed to confirm the patient's [...] was obtained. Prior to beginning the procedure, [place] Protocol was performed to confirm the patient's [...] Final Result * eGFR (12/26/2023 12:08 AM CRM CAMPAIGN MANAGER) eGFR >90 >=60 mL/min/1. 73 m2 [facility] Comment: Interpretive Data Reference Interval [...] reviewed 2021. Blood 12/26/2023 12:0 8 AM CRM CAMPAIGN MANAGER 12/26/2023 12:53 AM CRM CAMPAIGN MANAGER Temo Mcintosh MD LAB BLOOD ORDERABLES Fin al Result [facility] [place] [address] * (ABNORMAL) CBC without differential (12/26/2023 12:08 AM CRM CAMPAIGN MANAGER) WBC 9.4 3.8 - 9.9 K/cumm [facility] Hgb 10.5(L) 13.0 - 17.5 g/dL [facility] Hct 32.4(L) 38.9 - 50.3 % [facility] Plt 189 150 - 400 K/cumm [facility] MPV 11.5 9.1 - 12.3 fL [facility] RBC 3.50(L) 4.30 - 5.80 M/cumm [facility] MCV 92.6 81.3 - 96.4 fL [facility] MCH 30.0 27.1 - 33.3 pg [facility] MCHC 32.4 32.3 - 35.7 g/dL [facility] RDW CV 14.1 11.1 - 14.9 % [facility] RDW SD 48.1 35.7 - 48.1 fL [facility] NRBC abs 0.00 0.00 - 0.01 K/cumm [facility] Blood 12/26/2023 12:0 8 AM CRM CAMPAIGN MANAGER 12/26/2023 12:54 AM CRM CAMPAIGN MANAGER Temo Mcintosh MD LAB BLOOD ORDERABLES Fin al Result Performing Organization Address City/[facility] de Phone Number [facility] [employer] [place] [address] * Phosphorus (12/26/2023 12:08 AM CRM CAMPAIGN MANAGER) Pathologist [facility] Phosphorus, pl 3.2 2.3 - 4.5 mg/dL [facility] Blood 12/26/2023 12:0 8 AM CRM CAMPAIGN MANAGER 12/26/2023 12:53 AM CRM CAMPAIGN MANAGER Temo Mcintosh MD LAB BLOOD ORDERABLES Fin al Result Performing Organization Address [facility] de Phone Number [facility] [employer] [place] [place] [address] * Magnesium (12/26/2023 12:08 AM CRM CAMPAIGN MANAGER) Pathologist [facility] Magnesium 2.0 1.4 - 2.5 mg/dL [facility] Blood 12/26/2023 12:0 8 AM CRM CAMPAIGN MANAGER 12/26/2023 12:53 AM CRM CAMPAIGN MANAGER Temo Mcintosh MD LAB BLOOD ORDERABLES Fin al Result Performing Organization Address [facility] [place] [address] * Basic metabolic panel (12/26/2023 12:08 AM CRM CAMPAIGN MANAGER) Sodium 142 135 - 145 mmol/L [facility] Potassium, pl 3.4 3.3 - 4.9 mmol/L [facility] Chloride 104 97 - 110 mmol/L [facility] CO2 27 22 - 32 mmol/L [facility] Anion gap 11 2 - 15 mmol/L [facility] BUN 13 6 - 25 mg/dL [facility] Creatinine 0.80 0.80 - 1.30 mg/dL [facility] Glucose 122 70 - 199 mg/dL [facility] Comment: Interpretive Data Fasting glucose >/= 126 [...] 2022. Calcium 9.0 8.5 - 10.3 mg/dL [facility] Blood 12/26/2023 12:0 8 AM CRM CAMPAIGN MANAGER 12/26/2023 12:53 AM CRM CAMPAIGN MANAGER Temo Mcintosh MD LAB BLOOD ORDERABLES Fin al Result [facility] [place] [address] * Protime-INR (12/26/2023 12:08 AM CRM CAMPAIGN MANAGER) PT 12.2 10.3 - 13.7 sec [facility] INR 1.07 0.90 - 1.20 [facility] Comment: Interpretive data Oral anticoagulant therapeutic ranges: Venous thromboembolism prophylaxis or treatment: 2.0-3.0 CARDIOLOGY Standard range: 2.0-3.0 High-intensity range: 2.5-3.5 Refer to indication-specific guidelines for appropriate target ranges for prosthetic heart valve replacement. Current interpretive data was last revised on 2019. Blood 12/26/2023 12:0 8 AM CRM CAMPAIGN MANAGER 12/26/2023 12:55 AM CRM CAMPAIGN MANAGER Temo Mcintosh MD LAB BLOOD ORDERABLES Fin al Result Performing Organization Address [facility] de Phone Number [facility] [place] [employer] [place] [address] * aPTT (12/26/2023 12:08 AM CRM CAMPAIGN MANAGER) aPTT 29 28 - 38 sec [facility] Comment: Interpretive Data Heparin therapeutic range: 66.0 - 100.0 seconds. Range based on correlation with therapeutic heparin activity range of 0.3 - 0.7 Units/mL. Current interpretive data was last revised on 2023. Blood 12/26/2023 12:0 8 AM CRM CAMPAIGN MANAGER 12/26/2023 12:55 AM CRM CAMPAIGN MANAGER Temo Mcintosh MD LAB BLOOD ORDERABLES Fin al Result Performing Organization Address [facility] Phone Number [facility] [place] [employer] [address] * CT Urogram W 3D (12/25/2023 4:23 PM CRM CAMPAIGN MANAGER) Anatomical Region Laterality Modality Body Computed Tomogra phy 12/25/2023 5:08 PM CRM CAMPAIGN MANAGER Addenda Addendum by Elsy Fields MD on 12/26/2023 8:29 AM CRM CAMPAIGN MANAGER When comparing to the retrograde pyelogram 10/18/2023, [...] Elsy Fields M.D. Impressions 12/26/2023 6:58 AM CRM CAMPAIGN MANAGER 1. ??Interval removal of left-sided ureteral stent. [...] Elsy Fields M.D. Narrative 12/26/2023 6:58 AM CRM CAMPAIGN MANAGER EXAMINATION: 1. CT UROGRAPHY WITH AND WITHOUT [...] Fluoroscopy < 1 Hour (12/25/2023 8:21 AM CRM CAMPAIGN MANAGER) Narrative [facility] - 12/25/2023 8:21 AM CRM CAMPAIGN MANAGER The images from this study are not interpreted by Radiology. ??Please refer to the physician's procedure / OR operative note. Temo Mcintosh MD [facility] FLUOROSCOPY PROCEDUR ES Final Result [facility] documented [...] Sun12/26/23 at 1445 Given 12/27/2023 12:44 PM CRM CAMPAIGN MANAGER 1,000 mg Given 12/26/2023 2:40 PM CRM CAMPAIGN MANAGER 1,000 mg acyclovir (ZOVIRAX) tablet 400 mg 400 mg, oral, 2 times daily, First dose on Sun12/25/23 at 1045, Indications: Chronic SuppressionIndications:Chronic Suppression Given 12/27/2023 8:13 AM CRM CAMPAIGN MANAGER 4 00 mg Given 12/26/2023 8:40 PM CRM CAMPAIGN MANAGER 400 mg Given 12/26/2023 10:27 AM CRM CAMPAIGN MANAGER 400 mg calcium carbonate (TUMS) chewable tablet [...] tablet/capsule., Indications: hypertensionIndications:hypertension Given 12/26/2023 8:39 PM CRM CAMPAIGN MANAGER 240 mg Given 12/25/2023 11:41 AM CRM CAMPAIGN MANAGER 240 mg furosemide (LASIX) tablet 40 mg 40 mg, oral, 2 times daily (for diuretics), First dose (after last modification) on Sun12/25/23 at 1115, Indications: EdemaIndications:Edema Given 12/27/2023 8:13 AM CRM CAMPAIGN MANAGER 40 mg Given 12/26/2023 2:40 PM CRM CAMPAIGN MANAGER 40 mg Given 12/26/2023 10:27 AM CRM CAMPAIGN MANAGER 40 mg gabapentin (NEURONTIN) capsule 600 mg 600 mg, oral, 3 times daily, First dose on Sun12/25/23 at 1045, Indications: PainIndications:Pain Given 12/26/2023 8:39 PM CRM CAMPAIGN MANAGER 600 mg Given 12/26/2023 10:28 AM CRM CAMPAIGN MANAGER 600 mg Given 12/25/2023 9:35 PM CRM CAMPAIGN MANAGER 600 mg iothalamate meglumine (CONRAY) 60 % injection As needed, Starting on Sun12/25/23 at 0740, Intra-Op Given 12/25/2023 7:40 AM CRM CAMPAIGN MANAGER 7 mL Surgical Site Lactated Ringer's (LR) infusion 75 mL/hr, intravenous, Continuous, Starting on Sun12/25/23 at 0930, Phase I & Post-op Floor Rate/Dose Verify 12/27/2023 11:25 AM CRM CAMPAIGN MANAGER 75 mL/hr 75 mL/hr New Bag 12/27/2023 4:51 AM CRM CAMPAIGN MANAGER 75 mL/hr 75 mL/hr Rate/Dose Verify 12/26/2023 7:27 PM CRM CAMPAIGN MANAGER 75 mL/hr 75 mL/h r levETIRAcetam (KEPPRA) [...] tube., Indications: seizuresIndications:seizures Given 12/27/2023 8:13 AM CRM CAMPAIGN MANAGER 1,000 mg Given 12/26/2023 8:39 PM CRM CAMPAIGN MANAGER 1,000 mg Given 12/26/2023 10:28 AM CRM CAMPAIGN MANAGER 1,[address] (PROTONIX) extended release tablet 40 mg 40 mg, oral, Every morning, First dose on Sun12/25/23 at 1045, Do not crush, chew, cut, dissolve, open or otherwise manipulate tablet/capsule., Indications: Treatment of Non-Bleeding Gastric Disorder, acid refluxIndications:Treatment of Non-Bleeding Gastric Disorder,acid reflux Given 12/27/2023 8:13 AM CRM CAMPAIGN MANAGER 40 mg Given 12/26/2023 10:27 AM CRM CAMPAIGN MANAGER 40 mg Given 12/25/2023 11:42 AM CRM CAMPAIGN MANAGER 40 mg ramelteon (ROZEREM) tablet 8 mg 8 mg, oral, Nightly, First dose on Sun12/25/23 at 2100, Indications: Sleep-Onset InsomniaIndications:Sleep-Onset Insomnia Given 12/26/2023 8:39 PM CRM CAMPAIGN MANAGER 8 m g Given 12/25/2023 9:34 PM CRM CAMPAIGN MANAGER 8 mg ramelteon (ROZEREM) tablet 8 mg 8 mg, oral, Nightly PRN, sleep, Starting on Sun12/25/23 at 1218, Indications: Sleep-Onset InsomniaIndications:Sleep-Onset Insomnia senna-docusate (PERICOLACE) 8.6-50 mg per tablet 1 tablet 1 tablet, oral, Nightly, First dose on Sun12/25/23 at 2100, Indications: constipationIndications:constipation Given 12/26/2023 8:39 PM CRM CAMPAIGN MANAGER 1 table t Given 12/25/2023 9:35 PM CRM CAMPAIGN MANAGER 1 tablet simethicone (MYLICON) chewable tablet 80 mg 80 mg, oral, 2 times daily PRN, flatulence, other, gas pain, Starting on Sun12/25/23 at 1218 sodium chloride 0.9% flush 0.5-20 mL 0.5-20 mL, intra-catheter, Every 8 hours scheduled, First dose on Sun12/25/23 at 1400, Flush volume based on line type and size. Given 12/25/2023 12:45 PM CRM CAMPAIGN MANAGER 1 0 mL sodium chloride 0.9% flush 0.5-20 mL 0.5-20 mL, intra-catheter, Every 8 hours scheduled, First dose on Sun12/26/23 at 1400, Pre-Procedure (IR), Flush volume based on line type and size. Given 12/27/2023 6:00 AM CRM CAMPAIGN MANAGER 10 mL Given 12/26/2023 8:40 PM CRM CAMPAIGN MANAGER 10 mL sodium chloride 0.9% flush 0.5-20 mL 0.5-20 mL, intra-catheter, As needed, line care, Starting on Sun12/26/23 at 1111, Pre-Procedure (IR), Flush volume based on line type and size. Flush before and after each use. sodium chloride 0.9% irrigation As needed, Starting on Sun12/25/23 at 0757, Intra-Op Given 12/25/2023 7:57 AM CRM CAMPAIGN MANAGER 7,000 mL Surgical Site documented in this [...] Recently Administered Medications Times are shown in CRM CAMPAIGN MANAGER. Scheduled Medication Order 12/25/2023 12/26/2023 12/27/2023 acetaminophen [...] Provider: Katharine Montgomery RN)1746 (Given - Provider: aKtharine Montgomery RN - Comment: previous dose given [...] Pre-Op 0707 (New Bag - Provider: Alla Ahser RN)0723 (Rate/Dose Verify - Provider: Ruperto Tomas [...] 12/25/2023 documented in this encounter Care Teams Bill Sorter Relationship Specialty Start Date End Date Rl Medina DO [address] [place] [address] PCP - General 08/09/17 05/25/24 documented as of this encounter
--- OUTSIDE RECORDS SUMMARY | 2024-11-05 22:58 | XMS_ITS | Encounter Summary ---
Author Organization [facility] Healthcare Address [address] [place] [address] Care Team Providers Care Grocery Manager Name Role Phone Rl Medina DO Primary Care Provider [phone] Encounter Details Date Type Department Care Team (Late st Contact Info) Description 12/17/2023 Orders Only [facility] Interim [phone] Unknown, Notinfile Social History Tobacco Use Types Packs/Day Years Used Date Smoking Tobacco: Former Cigarettes 1 11 969 - 1979 Passive Smoke Exposure: Never Smokeless Tobacco: Never Alcohol Use Standard Drinks/Week Comments Yes 14 (1 standard drink = 0.6 oz pu re alcohol) social C Utilities Answer Date Recorded In the past 12 months has codetag, gas, oil, or water Patient Communicator threatened to shut off services in your [...] attend chur ch or church services? 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 Not on file Not on file documented as of this encounter Plan of Treatment Not on file documented as of this encounter Procedures Procedure Name Priority Date/Time Associated Diagnosis Comments CS GLUCOSE Routine Gen Lab 12/17/2023 9:00 PM HOSPITAL PHARMACY DIRECTOR CS BASIC METABOLIC PANEL Routine Gen Lab 12/17/2023 9:00 PM HOSPITAL PHARMACY DIRECTOR EGFR Routine Gen Lab 12/17/2023 9:00 PM HOSPITAL PHARMACY DIRECTOR CS GLUCOSE Routine Gen Lab 12/17/2023 7:28 AM HOSPITAL PHARMACY DIRECTOR EGFR Routine Gen Lab 12/17/2023 7:28 AM HOSPITAL PHARMACY DIRECTOR DIFFERENTIAL AUTO Routine Gen Lab 12/17/2023 7:2 8 AM HOSPITAL PHARMACY DIRECTOR COMPREHENSIVE METABOLIC PANEL WITHOUT GLUCOSE (OUTREACH) Routine Gen Lab 12/17/2023 7:28 AM HOSPITAL PHARMACY DIRECTOR CBC WITH AUTO DIFFERENTIAL Routine Gen Lab 12/17/2023 7:28 AM HOSPITAL PHARMACY DIRECTOR MAGNESIUM Routine Gen Lab 12/17/2023 7:28 AM HOSPITAL PHARMACY DIRECTOR documented in this encounter Results * eGFR (12/17/2023 9:00 PM HOSPITAL PHARMACY DIRECTOR) eGFR >90 >=60 mL/min/1. 73 m2 [facility] Comment: Interpretive Data Reference Interval Normal [...] was last reviewed 2021. Testing performed by: [facility], [address] [place] [address] Blood 12/17/2023 9:00 PM HOSPITAL PHARMACY DIRECTOR 12/18/2023 1:10 AM HOSPITAL PHARMACY DIRECTOR Medicine LAB BLOOD ORDERABLES Final Resul t [facility] Department [place] [address] * (ABNORMAL) CS BASIC METABOLIC PANEL (12/17/2023 9:00 PM HOSPITAL PHARMACY DIRECTOR) Sodium 140 135 - 145 mmol/L [facility] Comment:Testing performed by : [facility], [address] [place] [address]., [address] Potassium, pl 3.5 3.3 - 4.9 mmol/L [facility] Comment:Testing performed by : [facility], [address] [place] [address] Chloride 100 97 - 110 mmol/L [facility] Comment:Testing performed by : [facility], [address] [place] [address] CO2 31 22 - 32 mmol/L [facility] Comment:Testing performed by : [facility], [address] [place]., [address] Anion gap 9 2 - 15 mmol/L [facility] Comment:Testing performed by : [facility], [address] [place] [address] BUN 17 6 - 25 mg/dL [facility] Comment:Testing performed by : [facility], [address] [place] [address] Creatinine 0.76(L) 0.80 - 1.30 mg/dL [facility] Comment:Testing performed by : [facility], [address] [place] [address] Calcium 9.1 8.5 - 10.3 mg/dL [facility] Comment:Testing performed by : [facility], [address] [place] [address] Blood 12/17/2023 9:00 PM HOSPITAL PHARMACY DIRECTOR 12/18/2023 1:05 AM HOSPITAL PHARMACY DIRECTOR Medicine LAB BLOOD ORDERABLES Final Resul t Performing Organization Address [facility] de Phone Number [facility] Department [place] [address] * CS GLUCOSE (12/17/2023 9:00 PM HOSPITAL PHARMACY DIRECTOR) [facility] Signature Glucose 95 70 - 199 mg/dL [facility] Comment: Interpretive Data Fasting glucose [...] was last revised 2022. Testing performed by: [facility], [address] [place]., [address] Blood 12/17/2023 9:00 PM HOSPITAL PHARMACY DIRECTOR 12/18/2023 1:05 AM HOSPITAL PHARMACY DIRECTOR Simple Medicine LAB BLOOD ORDERABLES Final Resul t Performing Organization Address City/[facility]/ZIP Co de Phone Number [facility] Department [place] [address] * Magnesium (12/17/2023 7:28 AM HOSPITAL PHARMACY DIRECTOR) [facility] Magnesium 2.0 1.4 - 2.5 mg/dL [facility] Comment:Testing performed by : [facility], [address] [place] [address], [place]., [address] Blood 12/17/2023 7:28 AM HOSPITAL PHARMACY DIRECTOR 12/17/2023 11:03 AM HOSPITAL PHARMACY DIRECTOR us Notinfile Unknown LAB BLOOD ORDERABLES Final Res ult Performing Organization Address [facility] de Phone Number [facility] Department [place] [address] * eGFR (12/17/2023 7:28 AM HOSPITAL PHARMACY DIRECTOR) [facility] eGFR >90 >=60 mL/min/1. 73 m2 [facility] Comment: Interpretive Data Reference Interval [...] was last reviewed 2021. Testing performed by: [facility], [address] [place]., [address] Blood 12/17/2023 7:28 AM HOSPITAL PHARMACY DIRECTOR 12/17/2023 11:03 AM HOSPITAL PHARMACY DIRECTOR us Notinfile Unknown LAB BLOOD ORDERABLES Final Res ult [facility] Department [place] [address] * (ABNORMAL) Comprehensive metabolic panel, without glucose (Outreach) (12/17/2023 7:28 AM HOSPITAL PHARMACY DIRECTOR) Sodium 141 135 - 145 mmol/L [facility] Comment:Testing performed by : [facility], [address] [place] [address]., [address] Potassium, pl 2.7(L) 3.3 - 4.9 mmol/L [facility] Comment:Testing performed by : [facility], [address] [place]., [address] Chloride 99 97 - 110 mmol/L [facility] Comment:Testing performed by : [facility], [address] [place] [address] CO2 31 22 - 32 mmol/L [facility] Comment:Testing performed by : [facility], [address] [place] [address]., [address] Anion gap 11 2 - 15 mmol/L [facility] Comment:Testing performed by : [facility], [address] [place]., [address] BUN 19 6 - 25 mg/dL [facility] Comment:Testing performed by : [facility], [address] [place]., [address] Creatinine 0.74(L) 0.80 - 1.30 mg/dL [facility] Comment:Testing performed by : [facility], [address] [facility], [address] Calcium 9.1 8.5 - 10.3 mg/dL [facility] Comment:Testing performed by : [facility], [address] [facility], [address] Protein, pl 6.5 6.5 - 8.5 g/dL [facility] Comment:Testing performed by : [facility], [address] [facility], [address] Albumin 3.2(L) 3.5 - 5.0 g/dL [facility] Comment:Testing performed by : [facility], [address] [facility], [address] Bilirubin, total 0.3 0.1 - 1.2 mg/dL [facility] Comment:Testing performed by : [facility], [address] [facility], [address] Alk phos 95 40 - 130 Units/L [facility] Comment:Testing performed by : [facility], [address] [facility], [address] AST 25 10 - 50 Units/L [facility] Comment:Testing performed by : [facility], [address] [place] [address], [address] ALT 33 7 - 55 Units/L [facility] Comment:Testing performed by : [facility], [address] [place] [address], [address] Blood 12/17/2023 7:28 AM HOSPITAL PHARMACY DIRECTOR 12/17/2023 10:56 AM HOSPITAL PHARMACY DIRECTOR us Notinfile Unknown LAB BLOOD ORDERABLES Final Res ult [facility] Department [place] [address] * CS GLUCOSE (12/17/2023 7:28 AM HOSPITAL PHARMACY DIRECTOR) [facility] Glucose 100 70 - 199 mg/dL [facility] Comment: Interpretive Data Fasting glucose [...] was last revised 2022. Testing performed by: [facility], [address] [place] [address]., [address] Blood 12/17/2023 7:28 AM HOSPITAL PHARMACY DIRECTOR 12/17/2023 10:56 AM HOSPITAL PHARMACY DIRECTOR us Notinfile Unknown LAB BLOOD ORDERABLES Final Res ult [facility] Department [place] [address] * Differential, auto (12/17/2023 7:28 AM HOSPITAL PHARMACY DIRECTOR) [facility] Neutrophil abs 3.2 1.5 - 6.5 K/cumm [facility] Comment:Testing performed by : [facility], [address] [place] [address]., [address] Imm gran abs 0.0 0.0 - 0.1 K/cumm [facility] Comment:Testing performed by : [facility], [address] [place] [address]., [address] Lymphocyte abs 1.2 0.8 - 3.3 K/cumm [facility] Comment:Testing performed by : [facility], [address] [place] [address] Monocyte abs 0.6 0.2 - 0.8 K/cumm [facility] Comment:Testing performed by : [facility], [address] [place] [address] Eosinophil abs 0.2 0.0 - 0.5 K/cumm [facility] Comment:Testing performed by : [facility], [address] [place] [address] Basophil abs 0.0 0.0 - 0.1 K/cumm [facility] Comment:Testing performed by : [facility], [address] [place] [address] Neutrophil pct 61.4 % [facility] Comment: Interpretive Data Percent cell count reference ranges are not reported, since discordance with absolute values may lead to misinterpretation of CBC data. Current Interpretive Data was last revised on 2018. Testing performed by: [facility], [address] [place] [address] Imm gran pct 0.8 % [facility] Comment: Interpretive Data Percent cell count reference ranges are not reported, since discordance with absolute values may lead to misinterpretation of CBC data. Current Interpretive Data was last revised on 2018. Testing performed by: [facility], [address] [place] [address]., [address] Lymphocyte pct 22.9 % [facility] Comment: Interpretive Data Percent cell count reference ranges are not reported, since discordance with absolute values may lead to misinterpretation of CBC data. Current Interpretive Data was last revised on 2018. Testing performed by: [facility], [address] [place] [address] Monocyte pct 11.2 % [facility] Comment: Interpretive Data Percent cell count reference ranges are not reported, since discordance with absolute values may lead to misinterpretation of CBC data. Current Interpretive Data was last revised on 2018. Testing performed by: [facility], [address] [place] [address] Eosinophil pct 3.3 % [facility] Comment: Interpretive Data Percent cell count reference ranges are not reported, since discordance with absolute values may lead to misinterpretation of CBC data. Current Interpretive Data was last revised on 2018. Testing performed by: [facility], [address] [place] [address] Basophil pct 0.4 % [facility] Comment: Interpretive Data Percent cell count reference ranges are not reported, since discordance with absolute values may lead to misinterpretation of CBC data. Current Interpretive Data was last revised on 2018. Testing performed by: [facility], [address] [place] [address] Blood 12/17/2023 7:28 AM HOSPITAL PHARMACY DIRECTOR 12/17/2023 10:56 AM HOSPITAL PHARMACY DIRECTOR us Notinfile Unknown LAB BLOOD ORDERABLES Final Res ult [facility] Department [place] [address] * (ABNORMAL) CBC with auto differential (12/17/2023 7:28 AM HOSPITAL PHARMACY DIRECTOR) WBC 5.2 3.8 - 9.9 K/cumm [facility] Comment:Testing performed by : [facility], [address] [place] [address] Hgb 10.0(L) 13.0 - 17.5 g/dL [facility] Comment:Testing performed by : [facility], [address] [place] [address] Hct 30.8(L) 38.9 - 50.3 % [facility] Comment:Testing performed by : [facility], [address] [place] [address] Plt 317 150 - 400 K/cumm [facility] Comment:Testing performed by : [facility], [address] [place] [address] MPV 11.0 9.1 - 12.3 fL [facility] Comment:Testing performed by : [facility], [address] [facility], [address] RBC 3.25(L) 4.30 - 5.80 M/cumm [facility] Comment:Testing performed by : [facility], [address] [facility], [address] MCV 94.8 81.3 - 96.4 fL [facility] Comment:Testing performed by : [facility], [address] [facility], [address] MCH 30.8 27.1 - 33.3 pg [facility] Comment:Testing performed by : [facility], [address] [facility], [address] MCHC 32.5 32.3 - 35.7 g/dL [facility] Comment:Testing performed by : [facility], [address] [facility], [address] RDW CV 15.2(H) 11.1 - 14.9 % [facility] Comment:Testing performed by : [facility], [address] [facility], [address] RDW SD 53.0(H) 35.7 - 48.1 fL [facility] Comment:Testing performed by : [facility], [address] [facility], [address] NRBC abs 0.00 0.00 - 0.01 K/cumm [facility] Comment:Testing performed by : [facility], [address] [facility], [address] Blood 12/17/2023 7:28 AM HOSPITAL PHARMACY DIRECTOR 12/17/2023 10:56 AM HOSPITAL PHARMACY DIRECTOR us Notinfile Unknown LAB BLOOD ORDERABLES Final Res ult [facility] Department [place] [address] documented in this encounter Visit Diagnoses Not on filedocumented in this encounter Care Teams Grocery Manager Relationship Specialty Start Date End Date Rl Medina DO [address] [place] [address] PCP - General 08/09/17 05/25/24 documented as of this encounter
--- OUTSIDE RECORDS SUMMARY | 2024-11-05 22:58 | XMS_ITS | Encounter Summary ---
Author Organization [facility] Healthcare Address [address] [place] [address] Care Team Providers Care Director Of Operations For Therapy Name Role Phone Rl Medina DO Primary Care Provider Reason for Referral * MRI/CAT/PET Scan (Routine) - Closed Specialty Diagnoses / Procedures Referred By Charlesac t Referred To Contact Radiology Diagnoses SDH (subdural hematoma) (HCC) Procedures CT Head WO Contrast Carrie Jerez NP [address] [place] [address] Phone: tel: fax: [address] [phone] Referral ID Status Reason Start Date Expiration Date Visits Re quested Visits Authorized [id number] Closed 10/30/2023 11/28/2024 1 1 CH MAKER Reason for Visit * MRI/CAT/PET Scan (Routine) - Closed Specialty Diagnoses / Procedures Referred By Contac t Referred To Contact Radiology Diagnoses SDH (subdural hematoma) (HCC) Procedures CT Head WO Contrast Carrie Jerez NP [address] [place] [address] Phone: tel: fax: [address] [phone] Referral ID Status Reason Start Date Expiration Date Visits Re quested Visits Authorized [id number] Closed 10/30/2023 11/28/2024 1 1 Encounter Details Date Type Department Care Team (Latest Contact Info) Description 12/24/2023 1:41 PM SKETCH MAKER - 12/24/2023 11:59 PM SKETCH MAKER Hospital Encounter [facility] Imaging [address] [address] SDH (subdural hematoma) (HCC) Discharge Disposition: Discharge [...] attend chur ch or muslim services? 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 Interval resolution of bilateral subdural collections along the cerebral convexities. 2. ??No new acute intracranial hemorrhage, significant mass effect, or hydrocephalus. Electronically signed by: Francia Schmitz M.D. Narrative 12/24/2023 1:58 PM SKETCH MAKER EXAMINATION: CT head without contrast HISTORY: Follow-up [...] hemorrhage documented in this encounter Care Teams Director Of Operations For Therapy Relationship Specialty Start Date End Date Rl Medina DO [address] [place] [address] PCP - General 08/09/17 05/25/24 documented as of this encounter
--- OUTSIDE RECORDS SUMMARY | 2024-11-05 22:58 | XMS_ITS | Encounter Summary ---
Author Organization [facility] Address [address] [place] [address] Phone Care Team Providers Care Risk Consulting Treasury Director Name Role Phone Rl Medina DO Primary Care Provider Reason for Visit * Reason Onset Date Comments DME 12/14/2023 Encounter Details Date Type Department Care Team (Late st Contact Info) Description 12/14/2023 Telephone [facility] Orthopaedic Surgery [address] [place] [address] [place] [address] Marcial Vu Jr., MD [address] [facility] [id number] [place] [address] DME Social History Tobacco Use Types Packs/Day Years Used Date Smoking Tobacco: Former Cigarettes 1 09 05 969 - 1979 Passive Smoke Exposure: Never Smokeless Tobacco: Never Alcohol Use Standard Drinks/Week Comments Yes 14 (1 standard drink = 0.6 oz pu re alcohol) social [facility] Utilities Answer Date Recorded In the past 12 months has [employer], gas, oil, or water company threatened to [...] in a care home (including now)? 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 Vu's recommendations. Pt is currently scheduled for clinic appt on 12/31, provided her with appt details. Per Val, pt may be discharged from [facility] to SNF on 12/25, or sooner. Irenehumaira will arrange transportation for pt's upcoming appt. Requested she contact me before then if she needs to reschedule clinic appt or with any additional questions or concerns. OGICAL PLANT OPERATOR * Telephone Encounter - Galina Franco RN - 12/14/2023 11:05 AM BIOLOGICAL PLANT OPERATOR Pt's , Val, called asking how long pt will need to wear TLSO when OOB s/p surgery on 11/08. Pt's PT/OT are asking at [facility]. Informed Irenehumaira that I will confirm timeline with Dr. Vu and will contact her (and [facility]) with an update. Told Val that it most likely will not be until early next week when I speak with Dr. Vu. Val verbalized understanding. OGICAL PLANT OPERATOR documented in this encounter Plan of Treatment Not on file documented as of this encounter Visit Diagnoses Not on filedocumented in this encounter Care Teams Risk Consulting Treasury Director Relationship Specialty Start Date End Date Rl Medina DO [address] [place] [address] PCP - General 08/09/17 05/25/24 documented as of this encounter
--- OUTSIDE RECORDS SUMMARY | 2024-11-05 22:58 | XMS_ITS | Encounter Summary ---
Author Organization [facility] Address [address] [place] [address] Phone Care Team Providers Care Radio Installer Name Role Phone Rl Medina DO Primary Care Provider Encounter Details Date Type Department Care Team (Late st Contact Info) Description 12/24/2023 3:30 PM VEGETABLE FARMWORKER Office Visit [facility] Neurosurgery [address] [facility] [address] [place] [address] Carrie Jerez, CARLA [address] [place], [place] [id number] Subdural hematoma (HCC) (Primary Dx) Social History [...] months has [employer], gas, oil, or water [employer] threatened to shut off services in your [...] attend chur ch or bahai services? 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 Not on file Not on file documented as of this encounter Last Filed Vital Signs Vital Sign Reading Time Taken Comments Blood Pressure 113/70 12/24/2023 1:58 PM VEGETABLE FARMWORKER Pulse 66 12/24/2023 1:58 PM VEGETABLE FARMWORKER Temperature - - Respiratory Rate - - Oxygen Saturation - - Inhaled Oxygen Concentration - - Weight 90.7 kg (200 lb) 12/24/2023 1:58 PM VEGETABLE FARMWORKER Height 172.7 cm (5' 8 ) 12/24/2023 1:58 PM VEGETABLE FARMWORKER Body Mass Index 30.41 12/24/2023 1:58 PM VEGETABLE FARMWORKER documented in this encounter Progress Notes * Carrie Jerez, HARDWARE SALES ASSISTANT - 12/24/2023 3:30 PM CST RETURN VISIT [...] rehab. He will be transitioning to a senior living facility soon. Unfortunately, since the yuki marroquin's [...] strength in the right deltoids, biceps, triceps, welder/fitter, and intrinsic hand muscles and 5/5 in the left deltoids, biceps, triceps, welder/fitter, and intrinsic hand muscles. The patient is [...] Mojica MD at 01/31/2024 4:31 PM CDT TABLE FARMWORKER documented in this encounter Plan of Treatment [...] 12/10/2023 added in this encounter Care Teams Radio Installer Relationship Specialty Start Date End Date Rl Medina DO [address] [place] [address] PCP - General 08/09/17 05/25/24 documented as of this encounter
--- OUTSIDE RECORDS SUMMARY | 2024-11-05 22:58 | XMS_ITS | Encounter Summary ---
Author Organization [facility] Healthcare Address [address] [place] [address] Care Team Providers Care Horticultural Specialty Grower Name Role Phone Rl Medina DO Primary Care Provider Reason for Visit * Auth/Cert (Routine) Specialty Diagnoses / Procedures Referred By Contac t Referred To Contact Diagnoses Kidney stone Kidney stone [N20.0] Procedures DC CYSTOURETHROSCOPY CYSTOSCOPY PYELOGRAM - RETROGRADE URETEROSCOPY LITHOTRIPSY - LASER EXCHANGE STENT - URETERAL Referral ID Status Reason Start Date Expiration Date Visits Re quested Visits Authorized [id number] 1 1 Encounter Details Date Type Department Care Team (Late st Contact Info) Description 12/25/2023 7:23 AM CYLINDER LOADER Anesthesia Event [facility] Operating Room [address] [place] [address] Shalom Yuan MD [address] [place] [address] Hannah Gay NP [address] [facility] [phone] [place] [address] Anesthesia Record Procedure Summary Procedure Name Responsible [...] Recorded In the past 12 months has [employer], [employer], oil, or water [employer] threatened to shut off services in your [...] attend chur ch or restorationism services? 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 NDER LOADER * Anesthesia Procedure Notes - Ruperto Tomas CRNA - 12/25/2023 7:52 AM CSTAssociated Order(s): Airway Airway Patient location: OR Urgency: elective Indications for airway management: anesthesia Difficult airway: no Staff: Supervising provider: Shalom Yuan MD Placed by: SKY LINE YARDER: Ruperto Tomas CRNA Emergent airway documentation: Risks [...] 20 cm H2O Number of attempts: 1 NDER LOADER * Anesthesia Preprocedure Evaluation - Shalom Yuan MD - 12/19/2023 8:16 AM CST Images from the original note were not included. [facility] Preoperative Assessment and Planning Preoperative Evaluation Record Evaluation type/location: TPAP from [facility] Planned procedure site: [facility] PVT OR (Pod 1) Date: 12/19/23 [...] DVT/PE episodes: 1. Pertinent negatives: CAD ; TN ; CABG ; atrial fibrillation; pacemaker/ICD; negative [...] postoperatively. Instructed provided to [facility] staff. SampleBoard message sent to surgeon's office to make [...] 10/26/2023 S/P spinal fusion 10/23/2023 Cardiac arrest ([facility]) 10/23/2023 Left perinephric collection, 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 10/15/2023 Ureteral colic 10/13/2023 UTI (urinary tract infection) 10/13/2023 Hydronephrosis with urinary obstruction due to renal calculus 10/12/2023 Lumbar radiculopathy 10/08/2023 Gross hematuria 10/18/2022 Bladder neck obstruction 10/17/2022 Lesion of urinary bladder 10/17/2022 Prostate cancer ([facility]) 10/17/2022 HTN (hypertension) 10/10/2021 Risk factors for obstructive sleep apnea 10/10/2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 Presence of right artificial knee joint 10/25/2018 Primary osteoarthritis of left knee 10/25/2018 Localized adiposity 07/17/2018 Knee pain 10/24/2016 Past Medical History: Diagnosis Date Allergic rhinitis Arthritis OA Cancer (CMS/HCC) (HCC) prostate and melonomia Cauda equina compression (HCC) DVT (deep venous thrombosis) (CMS/HCC) ([facility]) Gastric reflux GERD (gastroesophageal reflux disease) History of melanoma Hypertension Kidney stone Paraspinal hematoma 11/29/2023 Personal history of prostate cancer Pneumonia Pulmonary embolism ([facility]) Seasonal allergies Past Surgical History: [...] (DULCOLAX) 10 mg suppository -- 12/10/23 -- iJmenez Henao MD Insert 1 suppository (10 mg [...] Medication protocol when under care of a SKY LINE YARDER Planned anesthesia: General Team communication plan: oral ET tube Induction: Induction: intravenous. Postoperative Plan: Patient's planned disposition post procedure is Outpatient. Informed Consent: Discussed plan with SKY LINE YARDER. Anesthesia plan and risks discussed with patient. [...] and agree to proceed. All questions answered. NDER LOADER NDER LOADER NDER LOADER documented in this encounter Plan of Treatment Not on file documented as of this encounter Procedures Procedure Name Priority Date/Time Associated Diagnosis Comments DC AN PROCEDURE PLACEHOLDER Routine 12/25/2023 7:52 AM CYLINDER LOADER DC AN ELECTIVE SUPRAGLOTTIC AIRWAY Routine 12/25/2023 7:52 AM CYLINDER LOADER documented in this encounter Results * DC AN ELECTIVE SUPRAGLOTTIC AIRWAY, DC AN PROCEDURE PLACEHOLDER (12/25/2023 7:52 AM CYLINDER LOADER) Narrative Ruperto Tomas CRNA - 12/25/2023 7:52 AM CYLINDER LOADER Ruperto Tomas CRNA ? 12/25/2023 ??7:53 AM Airway Patient location: OR Urgency: elective Indications for airway management: anesthesia Difficult airway: no Staff: Supervising provider: Shalom Yuan MD Placed by: SKY LINE YARDER: Ruperto Tomas CRNA Emergent airway documentation: Risks [...] SurgicalIndications:Prophy laxis, Surgical Given 12/25/2023 7:36 AM CYLINDER LOADER 2,000 mg famotidine (PEPCID) injection intravenous, Administer over 2 Minutes, As needed, Starting on Sun12/25/23 at 0751, Anesthesia Intra-op Given 12/25/2023 7:51 AM CYLINDER LOADER 20 mg fentaNYL (SUBLIMAZE) preservative free injection intravenous, As needed, Starting on Sun12/25/23 at 0745, Anesthesia Intra-op Given 12/25/2023 7:45 AM CYLINDER LOADER 25 mcg Lactated Ringer's (LR) infusion 30 mL/hr, intravenous, Continuous, Starting on Sun12/25/23 at 0700, Pre-Op Rate/Dose Verify 12/25/2023 7:23 AM CYLINDER LOADER 30 mL/hr New Bag 12/25/2023 7:07 AM CYLINDER LOADER 30 mL/hr 30 mL/hr lidocaine (cardiac) (XYLOCAINE) preservative free injection intravenous, As needed, Starting on Sun12/25/23 at 0733, Anesthesia Intra-op, Indications: Ventricular ArrhythmiasIndications:Ventricular Arrhythmias Given 12/25/2023 7:33 AM CYLINDER LOADER 50 mg ondansetron (ZOFRAN) injection intravenous, Administer over 2 Minutes, As needed, Starting on Sun12/25/23 at 0751, Anesthesia Intra-op Given 12/25/2023 7:51 AM CYLINDER LOADER 4 mg propofoL (DIPRIVAN) 10 mg/mL IV intravenous, As needed, Starting on Sun12/25/23 at 0733, Anesthesia Intra-op New Bag 12/25/2023 7:33 AM CYLINDER LOADER 100 mg documented in this encounter Care Teams Horticultural Specialty Grower Relationship Specialty Start Date End Date Rl Medina DO [address] [place] [address] PCP - General 08/09/17 05/25/24 documented as of this encounter
--- OUTSIDE RECORDS SUMMARY | 2024-11-05 22:58 | XMS_ITS | Encounter Summary ---
Author Organization [facility] Healthcare Address [address] [place] [address] Care Team Providers Care Agricultural Commodities Grader Name Role Phone Rl Medina DO Primary Care Provider Encounter Details Date Type Department Care Team (Late st Contact Info) Description 12/13/2023 Orders Only [facility] [phone] Unknown, Notinfile Social History Tobacco Use Types Packs/Day Years Used Date Smoking Tobacco: Former Cigarettes 1 11 969 - 1979 Passive Smoke Exposure: Never Smokeless Tobacco: Never Alcohol Use Standard Drinks/Week Comments Yes 14 (1 standard drink = 0.6 oz pu re alcohol) social C Utilities Answer Date Recorded In the past 12 months has [employer], gas, oil, or water [employer] threatened to shut off services in your [...] attend chur ch or anabaptist services? 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 Not on file Not on file documented as of this encounter Plan of Treatment Not on file documented as of this encounter Procedures Procedure Name Priority Date/Time Associated Diagnosis Comments CS GLUCOSE Routine Gen Lab 12/13/2023 7:26 AM SENIOR PRODUCTION PLANNER EGFR Routine Gen Lab 12/13/2023 7:26 AM SENIOR PRODUCTION PLANNER DIFFERENTIAL AUTO Routine Gen Lab 12/13/2023 7:2 6 AM SENIOR PRODUCTION PLANNER COMPREHENSIVE METABOLIC PANEL WITHOUT GLUCOSE (OUTREACH) Routine Gen Lab 12/13/2023 7:26 AM SENIOR PRODUCTION PLANNER CBC WITH AUTO DIFFERENTIAL Routine Gen Lab 12/13/2023 7:26 AM SENIOR PRODUCTION PLANNER documented in this encounter Results * eGFR (12/13/2023 7:26 AM SENIOR PRODUCTION PLANNER) eGFR >90 >=60 mL/min/1. 73 m2 LAURA [...] was last reviewed 2021. Testing performed by: [facility], [address] [place]., [address] Blood 12/13/2023 7:26 AM SENIOR PRODUCTION PLANNER 12/13/2023 12:00 PM SENIOR PRODUCTION PLANNER us Notinfile Unknown LAB BLOOD ORDERABLES Final Res ult [facility] Department [place] [address] * (ABNORMAL) Comprehensive metabolic panel, without glucose (Outreach) (12/13/2023 7:26 AM SENIOR PRODUCTION PLANNER) Sodium 142 135 - 145 mmol/L [facility] Comment:Testing performed by : [facility], [address] [facility], [address] Potassium, pl 3.3 3.3 - 4.9 mmol/L [facility] Comment:Testing performed by : [facility], [address] [facility], [address] Chloride 101 97 - 110 mmol/L [facility] Comment:Testing performed by : [facility], [address] [facility], [address] CO2 29 22 - 32 mmol/L [facility] Comment:Testing performed by : [facility], [address] [facility], [address] Anion gap 12 2 - 15 mmol/L [facility] Comment:Testing performed by : [facility], [address] [place] [address], [address] BUN 22 6 - 25 mg/dL [facility] Comment:Testing performed by : [facility], [address] [facility], [address] Creatinine 0.82 0.80 - 1.30 mg/dL [facility] Comment:Testing performed by : [facility], [address] [facility], [address] Calcium 9.2 8.5 - 10.3 mg/dL [facility] Comment:Testing performed by : [facility], [address] [facility], [address] Protein, pl 6.5 6.5 - 8.5 g/dL [facility] Comment:Testing performed by : [facility], [address] [facility], [address] Albumin 3.1(L) 3.5 - 5.0 g/dL [facility] Comment:Testing performed by : [facility], [address] [facility], [address] Bilirubin, total 0.4 0.1 - 1.2 mg/dL [facility] Comment:Testing performed by : [facility], [address] [facility], [address] Alk phos 109 40 - 130 Units/L [facility] Comment:Testing performed by : [facility], [address] [facility], [address] AST 30 10 - 50 Units/L [facility] Comment:Testing performed by : [facility], [address] [facility], [address] ALT 33 7 - 55 Units/L [facility] Comment:Testing performed by : [facility], [address] [facility], [address] Blood 12/13/2023 7:26 AM SENIOR PRODUCTION PLANNER 12/13/2023 11:52 AM SENIOR PRODUCTION PLANNER us Notinfile Unknown LAB BLOOD ORDERABLES Final Res ult [facility] Department [place] [address] * CS GLUCOSE (12/13/2023 7:26 AM SENIOR PRODUCTION PLANNER) [facility] Glucose 96 70 - 199 mg/dL [facility] Comment: Interpretive Data Fasting glucose [...] was last revised 2022. Testing performed by: [facility], [address] [place] [address]., [address] Blood 12/13/2023 7:26 AM SENIOR PRODUCTION PLANNER 12/13/2023 11:52 AM SENIOR PRODUCTION PLANNER us Notinfile Unknown LAB BLOOD ORDERABLES Final Res ult [facility] Department [place] [address] * Differential, auto (12/13/2023 7:26 AM SENIOR PRODUCTION PLANNER) Neutrophil abs 3.4 1.5 - 6.5 K/cumm [facility] Comment:Testing performed by : [facility], [address] [place] [address]., [address] Imm gran abs 0.0 0.0 - 0.1 K/cumm [facility] Comment:Testing performed by : [facility], [address] [place] [address]., [address] Lymphocyte abs 1.0 0.8 - 3.3 K/cumm [facility] Comment:Testing performed by : [facility], [address] [place] [address]., [address] Monocyte abs 0.6 0.2 - 0.8 K/cumm [facility] Comment:Testing performed by : [facility], [address] [place] [address]., [address] Eosinophil abs 0.2 0.0 - 0.5 K/cumm [facility] Comment:Testing performed by : [facility], [address] [place]., [address] Basophil abs 0.0 0.0 - 0.1 K/cumm [facility] Comment:Testing performed by : [facility], [address] [place]., [address] Neutrophil pct 64.9 % [facility] Comment: Interpretive Data Percent cell count reference ranges are not reported, since discordance with absolute values may lead to misinterpretation of CBC data. Current Interpretive Data was last revised on 2018. Testing performed by: [facility], [address] [place]., [address] Imm gran pct 0.8 % [facility] Comment: Interpretive Data Percent cell count reference ranges are not reported, since discordance with absolute values may lead to misinterpretation of CBC data. Current Interpretive Data was last revised on 2018. Testing performed by: [facility], [address] [place]., [address] Lymphocyte pct 19.4 % [facility] Comment: Interpretive Data Percent cell count reference ranges are not reported, since discordance with absolute values may lead to misinterpretation of CBC data. Current Interpretive Data was last revised on 2018. Testing performed by: [facility], [address] [place]., [address] Monocyte pct 11.0 % [facility] Comment: Interpretive Data Percent cell count reference ranges are not reported, since discordance with absolute values may lead to misinterpretation of CBC data. Current Interpretive Data was last revised on 2018. Testing performed by: [facility], [address] [place]., [address] Eosinophil pct 3.1 % [facility] Comment: Interpretive Data Percent cell count reference ranges are not reported, since discordance with absolute values may lead to misinterpretation of CBC data. Current Interpretive Data was last revised on 2018. Testing performed by: [facility], [address] [place]., [address] Basophil pct 0.8 % [facility] Comment: Interpretive Data Percent cell count reference ranges are not reported, since discordance with absolute values may lead to misinterpretation of CBC data. Current Interpretive Data was last revised on 2018. Testing performed by: [facility], [address] [place]., [address] Blood 12/13/2023 7:26 AM SENIOR PRODUCTION PLANNER 12/13/2023 11:52 AM SENIOR PRODUCTION PLANNER us Notinfile Unknown LAB BLOOD ORDERABLES Final Res ult [facility] Department [place] [address] * (ABNORMAL) CBC with auto differential (12/13/2023 7:26 AM SENIOR PRODUCTION PLANNER) WBC 5.2 3.8 - 9.9 K/cumm [facility] Comment:Testing performed by : [facility], [address] [place] [address]., [address] Hgb 10.3(L) 13.0 - 17.5 g/dL [facility] Comment:Testing performed by : [facility], [address] [place] [address], [address] Hct 32.0(L) 38.9 - 50.3 % [facility] Comment:Testing performed by : [facility], [address] [place] [address]., [address] Plt 331 150 - 400 K/cumm [facility] Comment:Testing performed by : [facility], [address] [place] [address]., [address] MPV 10.8 9.1 - 12.3 fL [facility] Comment:Testing performed by : [facility], [address] [facility], [address] RBC 3.36(L) 4.30 - 5.80 M/cumm [facility] Comment:Testing performed by : [facility], [address] [place] [address], [address] MCV 95.2 81.3 - 96.4 fL [facility] Comment:Testing performed by : [facility], [address] [facility], [address] MCH 30.7 27.1 - 33.3 pg [facility] Comment:Testing performed by : [facility], [address] [facility], [address] MCHC 32.2(L) 32.3 - 35.7 g/dL [facility] Comment:Testing performed by : [facility], [address] [facility], [address] RDW CV 15.6(H) 11.1 - 14.9 % [facility] Comment:Testing performed by : [facility], [address] [facility], [address] RDW SD 54.3(H) 35.7 - 48.1 fL [facility] Comment:Testing performed by : [facility], [address] [facility], [address] NRBC abs 0.00 0.00 - 0.01 K/cumm [facility] Comment:Testing performed by : [facility], [address] [facility], [address] Blood 12/13/2023 7:26 AM SENIOR PRODUCTION PLANNER 12/13/2023 11:52 AM SENIOR PRODUCTION PLANNER us Notinfile Unknown LAB BLOOD ORDERABLES Final Res ult [facility] Department [place] [address] documented in this encounter Visit Diagnoses Not on filedocumented in this encounter Care Teams Agricultural Commodities Grader Relationship Specialty Start Date End Date Rl Medina DO [address] [place] [address] PCP - General 08/09/17 05/25/24 documented as of this encounter
--- OUTSIDE RECORDS SUMMARY | 2024-11-05 22:58 | XMS_ITS | Encounter Summary ---
Author Organization [facility] Healthcare Address [address] [place] [address] Care Team Providers Care Trestle Mainternance Laborer Name Role Phone Rl Medina DO Primary Care Provider Encounter Details Date Type Department Care Team (Late st Contact Info) Description 12/24/2023 Orders Only [facility] [phone] Unknown, Notinfile Social History Tobacco Use Types Packs/Day Years Used Date Smoking Tobacco: Former Cigarettes 1 11 969 - 1979 Passive Smoke Exposure: Never Smokeless Tobacco: Never Alcohol Use Standard Drinks/Week Comments Yes 14 (1 standard drink = 0.6 oz pu re alcohol) social C Utilities Answer Date Recorded In the past 12 months has [employer], gas, oil, or water [employer] threatened to shut off services in your [...] attend chur ch or restorationist services? Never 11/30/2023 Do you belong to [...] slept in a halfway (including now)? No 11/30/2023 Personal Safety Answer Date Recorded Have you ever been in or are you currently in a harmful physical or emotional relationship or is someone making you feel afraid or unsafe? 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 Not on file Not on file documented as of this encounter Plan of Treatment Not on file documented as of this encounter Procedures Procedure Name Priority Date/Time Associated Diagnosis Comments CS GLUCOSE Routine Gen Lab 12/24/2023 6:25 AM IT PROJECT COORDINATOR EGFR Routine Gen Lab 12/24/2023 6:25 AM IT PROJECT COORDINATOR DIFFERENTIAL AUTO Routine Gen Lab 12/24/2023 6:2 5 AM IT PROJECT COORDINATOR COMPREHENSIVE METABOLIC PANEL WITHOUT GLUCOSE (OUTREACH) Routine Gen Lab 12/24/2023 6:25 AM IT PROJECT COORDINATOR CBC WITH AUTO DIFFERENTIAL Routine Gen Lab 12/24/2023 6:25 AM IT PROJECT COORDINATOR MAGNESIUM Routine Gen Lab 12/24/2023 6:25 AM IT PROJECT COORDINATOR documented in this encounter Results * eGFR (12/24/2023 6:25 AM IT PROJECT COORDINATOR) eGFR >90 >=60 mL/min/1. 73 m2 [facility] Comment: Interpretive Data Reference Interval [...] reviewed 2021. Testing performed by: [facility], [address] [place] [address] Blood 12/24/2023 6:25 AM IT PROJECT COORDINATOR 12/24/2023 12:51 PM IT PROJECT COORDINATOR us Notinfile Unknown LAB BLOOD ORDERABLES Final Res ult [facility] One [facility] Department [place] [address] * (ABNORMAL) Comprehensive metabolic panel, without glucose (Outreach) (12/24/2023 6:25 AM IT PROJECT COORDINATOR) Sodium 141 135 - 145 mmol/L [facility] Comment:Testing performed by : [facility], [address] [place]., [address] Potassium, pl 3.6 3.3 - 4.9 mmol/L [facility] Comment:Testing performed by : [facility], [address] [place]., [address] Chloride 102 97 - 110 mmol/L [facility] Comment:Testing performed by : [facility], [address] [place]., [address] CO2 28 22 - 32 mmol/L [facility] Comment:Testing performed by : [facility], [address] [place]., [address] Anion gap 11 2 - 15 mmol/L [facility] Comment:Testing performed by : [facility], [address] [place]., [address] BUN 13 6 - 25 mg/dL [facility] Comment:Testing performed by : [facility], [address] [place]., [address] Creatinine 0.82 0.80 - 1.30 mg/dL [facility] Comment:Testing performed by : [facility], [address] [facility], [address] Calcium 9.2 8.5 - 10.3 mg/dL [facility] Comment:Testing performed by : [facility], [address] [facility], [address] Protein, pl 6.3(L) 6.5 - 8.5 g/dL [facility] Comment:Testing performed by : [facility], [address] [facility], [address] Albumin 3.2(L) 3.5 - 5.0 g/dL [facility] Comment:Testing performed by : [facility], [address] [facility], [address] Bilirubin, total 0.3 0.1 - 1.2 mg/dL [facility] Comment:Testing performed by : [facility], [address] [facility], [address] Alk phos 84 40 - 130 Units/L [facility] Comment:Testing performed by : [facility], [address] [place] [address], [address] AST 21 10 - 50 Units/L [facility] Comment:Testing performed by : [facility], [address] [place] [address], [address] ALT 25 7 - 55 Units/L [facility] Comment:Testing performed by : [facility], [address] [place] [address], [address] Blood 12/24/2023 6:25 AM IT PROJECT COORDINATOR 12/24/2023 12:45 PM IT PROJECT COORDINATOR us Notinfile Unknown LAB BLOOD ORDERABLES Final Res ult [facility] One [facility] Department [place] [address] * Magnesium (12/24/2023 6:25 AM IT PROJECT COORDINATOR) Pathologist [facility] Magnesium 2.2 1.4 - 2.5 mg/dL [facility] Comment:Testing performed by : [facility], [address] [place]., [address] Blood 12/24/2023 6:25 AM IT PROJECT COORDINATOR 12/24/2023 12:45 PM IT PROJECT COORDINATOR us Notinfile Unknown LAB BLOOD ORDERABLES Final Res ult [facility] Department [place] [address] * CS GLUCOSE (12/24/2023 6:25 AM IT PROJECT COORDINATOR) [facility] Glucose 91 70 - 199 mg/dL [facility] Comment: Interpretive Data Fasting glucose [...] revised 2022. Testing performed by: [facility], [address] [place] [address]., [address] Blood 12/24/2023 6:25 AM IT PROJECT COORDINATOR 12/24/2023 12:45 PM IT PROJECT COORDINATOR us Notinfile Unknown LAB BLOOD ORDERABLES Final Res ult Performing Organization Address City/[facility] Co de Phone Number [facility] Department [place] [address] * Differential, auto (12/24/2023 6:25 AM IT PROJECT COORDINATOR) Pathologist [facility] Neutrophil abs 2.3 1.5 - 6.5 K/cumm [facility] Comment:Testing performed by : [facility], [address] [place]., [address] Imm gran abs 0.0 0.0 - 0.1 K/cumm [facility] Comment:Testing performed by : [facility], [address] [place]., [address] Lymphocyte abs 1.5 0.8 - 3.3 K/cumm [facility] Comment:Testing performed by : [facility], [address] [place]., [address] Monocyte abs 0.4 0.2 - 0.8 K/cumm [facility] Comment:Testing performed by : [facility], [address] [place]., [address] Eosinophil abs 0.3 0.0 - 0.5 K/cumm [facility] Comment:Testing performed by : [facility], [address] [place]., [address] Basophil abs 0.0 0.0 - 0.1 K/cumm [facility] Comment:Testing performed by : [facility], [address] [place]., [address] Neutrophil pct 51.3 % [facility] Comment: Interpretive Data Percent cell count reference ranges are not reported, since discordance with absolute values may lead to misinterpretation of CBC data. Current Interpretive Data was last revised on 2018. Testing performed by: [facility], [address] [place]., [address] Imm gran pct 0.4 % [facility] Comment: Interpretive Data Percent cell count reference ranges are not reported, since discordance with absolute values may lead to misinterpretation of CBC data. Current Interpretive Data was last revised on 2018. Testing performed by: [facility], [address] [place] [address]., [address] Lymphocyte pct 32.4 % [facility] Comment: Interpretive Data Percent cell count reference ranges are not reported, since discordance with absolute values may lead to misinterpretation of CBC data. Current Interpretive Data was last revised on 2018. Testing performed by: [facility], [address] [place]., [address] Monocyte pct 9.0 % [facility] Comment: Interpretive Data Percent cell count reference ranges are not reported, since discordance with absolute values may lead to misinterpretation of CBC data. Current Interpretive Data was last revised on 2018. Testing performed by: [facility], [address] [place]., [address] Eosinophil pct 6.2 % [facility] Comment: Interpretive Data Percent cell count reference ranges are not reported, since discordance with absolute values may lead to misinterpretation of CBC data. Current Interpretive Data was last revised on 2018. Testing performed by: [facility], [address] [place]., [address] Basophil pct 0.7 % [facility] Comment: Interpretive Data Percent cell count reference ranges are not reported, since discordance with absolute values may lead to misinterpretation of CBC data. Current Interpretive Data was last revised on 2018. Testing performed by: [facility], [address] [place]., [address] Blood 12/24/2023 6:25 AM IT PROJECT COORDINATOR 12/24/2023 12:45 PM IT PROJECT COORDINATOR us Notinfile Unknown LAB BLOOD ORDERABLES Final Res ult [facility] One [facility] [place] [address] * (ABNORMAL) CBC with auto differential (12/24/2023 6:25 AM IT PROJECT COORDINATOR) WBC 4.5 3.8 - 9.9 K/cumm [facility] Comment:Testing performed by : [facility], [address] [place]., [address] Hgb 9.8(L) 13.0 - 17.5 g/dL [facility] Comment:Testing performed by : [facility], [address] [facility], [address] Hct 30.3(L) 38.9 - 50.3 % [facility] Comment:Testing performed by : [facility], [address] [facility], [address] Plt 224 150 - 400 K/cumm [facility] Comment:Testing performed by : [facility], [address] [facility], [address] MPV 11.4 9.1 - 12.3 fL [facility] Comment:Testing performed by : [facility], [address] [facility], [address] RBC 3.22(L) 4.30 - 5.80 M/cumm [facility] Comment:Testing performed by : [facility], [address] [facility], [address] MCV 94.1 81.3 - 96.4 fL [facility] Comment:Testing performed by : [facility], [address] [facility], [address] MCH 30.4 27.1 - 33.3 pg [facility] Comment:Testing performed by : [facility], [address] [facility], [address] MCHC 32.3 32.3 - 35.7 g/dL [facility] Comment:Testing performed by : [facility], [address] [facility], [address] RDW CV 14.5 11.1 - 14.9 % [facility] Comment:Testing performed by : [facility], [address] [facility], [address] RDW SD 50.5(H) 35.7 - 48.1 fL [facility] Comment:Testing performed by : [facility], [address] [facility], [address] NRBC abs 0.00 0.00 - 0.01 K/cumm [facility] Comment:Testing performed by : [facility], [address] [facility], [place]., [address] Blood 12/24/2023 6:25 AM IT PROJECT COORDINATOR 12/24/2023 12:45 PM IT PROJECT COORDINATOR us Notinfile Unknown LAB BLOOD ORDERABLES Final Res ult [facility] [place] [address] documented in this encounter Visit Diagnoses Not on filedocumented in this encounter Care Teams Trestle Mainternance Laborer Relationship Specialty Start Date End Date Rl Medina DO [address] [place] [address] PCP - General 08/09/17 05/25/24 documented as of this encounter
--- OUTSIDE RECORDS SUMMARY | 2024-11-05 22:58 | XMS_ITS | Encounter Summary ---
Author Organization [facility] Healthcare Address [address] [place] [address] Care Team Providers Care Vision Therapist Name Role Phone Rl Medina DO Primary Care Provider [phone] Reason for Referral * Cardiology (Routine) - Closed Specialty Diagnoses / Procedures Referred By Contac t Referred To Contact Diagnoses Lower extremity edema Procedures Transthoracic Echo (TTE) Limited/Followup Tae Ramos MD Phone: tel: fax: [address] [phone] Referral ID Status Reason Start Date Expiration Date Visits Re quested Visits Authorized [id number] Closed 12/19/2023 01/17/2025 1 1 RAFT FUELER Encounter Details Date Type Department Care Team (Late st Contact Info) Description 12/19/2023 Orders Only Physical Medicine and Rehabilitation Tae Ramos MD [address] [facility] [address] [address] Lower extremity edema (Primary Dx) Social History Tobacco Use Types Packs/Day Years Used Date Smoking Tobacco: Former Cigarettes 1 11 1 9 - 1979 Passive Smoke Exposure: Never Smokeless Tobacco: Never Alcohol Use Standard Drinks/Week Comments Yes 14 (1 standard drink = 0.6 oz pu re alcohol) social [facility] Utilities Answer Date Recorded In the past 12 months has e [employer], gas, oil, or water company threatened to [...] attend chur ch or adventist services? Never 11/30/2023 Do you belong to any clubs o r organizations such as episcopalian groups, unions, fraternal or athletic groups, or [...] slept in a intermediate (including now)? 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 Not on file Not on file documented as of this encounter Plan of Treatment Not on file documented as of this encounter Results * TRANSTHORACIC ECHO (TTE) LIMITED/FOLLOW UP W LTD DOPPLER/CF W CONTRAST (12/20/2023 4:16 PM AIRCRAFT FUELER) LV EF 55 % CARDIOREPORT Anatomical Region Laterality Modality Ultrasound 12/20/2023 3:15 PM AIRCRAFT FUELER Narrative 12/20/2023 4:36 PM AIRCRAFT FUELER Patient name: Hira Evans Date of test: 12/20/2023 Type of test: [facility] #: 0 Date of : 1950 (M) [place] Applicator: Mikayla Saravia RDCS Referring Physician: TAE RAMOS MD Contrast Agent: 0.30 ml Definity Administered, (1.20 ml wasted). Contrast Administered by: Shani Youngblood RN Supervised/Interpreted by: Anibal Heath MD Diagnosis: Edema Location: [facility] Reason for test: Edema MV Structure: [...] 2=Hypo 3=Akinetic 4=Dyskin./Aneurysm 0=Not visualized) Parasternal Long [place]:MAS=1 BAS=1 MIL=1 RENEE=1 Parasternal Short [place]:MAS=1 MIS=1 NM=1 MIL=1 MAL=1 MA=1 Apical 4 Chambers:=1 MIS=1 BIS=1 BAL=1 MAL=1 AL=1 AC=1 Apical 2 Chambers:AI=1 NM=1 BI=1 BA=1 MA=1 AA=1 AC=1 LV Global [...] MD By signing this report, the attending linen room worker certifies that he or she has personally supervised and interpreted the echocardiogram and has reviewed and or edited and agrees with the written comments contained within the report. Procedure Hernán Collado MD - 12/20/2023 Patient name: Hira Evans Date of test: 12/20/2023 Type of test: Limited TTE [facility] #: 0 Date of : 1950 (M) [place] Applicator: Mikayla Saravia RDCS Referring Physician: TAE RAMOS MD Contrast Agent: 0.30 ml Definity Administered, (1.20 ml wasted). Contrast Administered by: Shani Youngblood RN Supervised/Interpreted by: Anibal Heath MD Diagnosis: Edema Location: [facility] Reason for test: Edema MV Structure: [...] 2=Hypo 3=Akinetic 4=Dyskin./Aneurysm 0=Not visualized) Parasternal Long [place]:MAS=1 BAS=1 MIL=1 RENEE=1 Parasternal Short [place]:MAS=1 MIS=1 NM=1 MIL=1 MAL=1 MA=1 Apical 4 Chambers:=1 MIS=1 BIS=1 BAL=1 MAL=1 AL=1 AC=1 Apical 2 Chambers:AI=1 NM=1 BI=1 BA=1 MA=1 AA=1 AC=1 LV Global [...] MD By signing this report, the attending linen room worker certifies that he or she has personally supervised and interpreted the echocardiogram and has reviewed and or edited and agrees with the written comments contained within the report. Tae Ramos MD CV ECHO PROCEDURES Final R esult documented in this encounter Visit Diagnoses Diagnosis Lower extremity edema- Primary Edema Lower extremity edema Edema documented in this encounter Care Teams Vision Therapist Relationship Specialty Start Date End Date Rl Medina DO [address] [place] [address] PCP - General 08/09/17 05/25/24 documented as of this encounter
--- OUTSIDE RECORDS SUMMARY | 2024-11-05 22:58 | XMS_ITS | Encounter Summary ---
Author Organization [facility] Healthcare Address [address] [place] [address] Care Team Providers Care Automobile Mechanic Apprentice Name Role Phone Rl Medina DO Primary Care Provider Encounter Details Date Type Department Care Team (Late st Contact Info) Description 12/20/2023 Orders Only [facility] [phone] Unknown, Notinfile Social History Tobacco Use Types Packs/Day Years Used Date Smoking Tobacco: Former Cigarettes 1 11 969 - 1979 Passive Smoke Exposure: Never Smokeless Tobacco: Never Alcohol Use Standard Drinks/Week Comments Yes 14 (1 standard drink = 0.6 oz pu re alcohol) social C Utilities Answer Date Recorded In the past 12 months has [employer], gas, oil, or water [employer] threatened to shut off services in [...] file Legal Sex 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 Gender Identity Not on file Sexual Orientation Not on file 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 Not on file Not on file documented as of this encounter Plan of Treatment Not on file documented as of this encounter Procedures Procedure Name Priority Date/Time Associated Diagnosis Comments CS GLUCOSE Routine Gen Lab 12/20/2023 6:07 AM MACHINE SANDER EGFR Routine Gen Lab 12/20/2023 6:07 AM MACHINE SANDER DIFFERENTIAL AUTO Routine Gen Lab 12/20/2023 6:0 7 AM MACHINE SANDER COMPREHENSIVE METABOLIC PANEL WITHOUT GLUCOSE (OUTREACH) Routine Gen Lab 12/20/2023 6:07 AM MACHINE SANDER CBC WITH AUTO DIFFERENTIAL Routine Gen Lab 12/20/2023 6:07 AM MACHINE SANDER MAGNESIUM Routine Gen Lab 12/20/2023 6:07 AM MACHINE SANDER documented in this encounter Results * eGFR (12/20/2023 6:07 AM MACHINE SANDER) eGFR >90 >=60 mL/min/1. 73 m2 [facility] Comment: Interpretive Data Reference Interval Normal [...] was last reviewed 2021. Testing performed by: [facility], [address] [place] [address] Blood 12/20/2023 6:07 AM MACHINE SANDER 12/20/2023 10:57 AM MACHINE SANDER us Notinfile Unknown LAB BLOOD ORDERABLES Final Res ult [facility] Department [place] [address] * (ABNORMAL) Comprehensive metabolic panel, without glucose (Outreach) (12/20/2023 6:07 AM MACHINE SANDER) Sodium 141 135 - 145 mmol/L [facility] Comment:Testing performed by : [facility], [address] [facility], [address] Potassium, pl 3.4 3.3 - 4.9 mmol/L [facility] Comment:Testing performed by : [facility], [address] [facility], [address] Chloride 101 97 - 110 mmol/L [facility] Comment:Testing performed by : [facility], [address] [facility], [address] CO2 30 22 - 32 mmol/L [facility] Comment:Testing performed by : [facility], [address] [facility], [address] Anion gap 10 2 - 15 mmol/L [facility] Comment:Testing performed by : [facility], [address] [facility], [address] BUN 15 6 - 25 mg/dL [facility] Comment:Testing performed by : [facility], [address] [facility], [address] Creatinine 0.82 0.80 - 1.30 mg/dL [facility] Comment:Testing performed by : [facility] [address] Calcium 8.9 8.5 - 10.3 mg/dL [facility] Comment:Testing performed by : [facility], [address] [facility], [address] Protein, pl 6.2(L) 6.5 - 8.5 g/dL [facility] Comment:Testing performed by : [facility], [address] [facility], [address] Albumin 3.0(L) 3.5 - 5.0 g/dL [facility] Comment:Testing performed by : [facility], [address] [facility], [address] Bilirubin, total 0.3 0.1 - 1.2 mg/dL [facility] Comment:Testing performed by : [facility], [address] [facility], [address] Alk phos 86 40 - 130 Units/L [facility] Comment:Testing performed by : [facility], [address] [facility], [address] AST 23 10 - 50 Units/L [facility] Comment:Testing performed by : [facility], [address] [facility], [address] ALT 28 7 - 55 Units/L [facility] Comment:Testing performed by : [facility], [address] [place] [address], [address] Blood 12/20/2023 6:07 AM MACHINE SANDER 12/20/2023 10:47 AM MACHINE SANDER us Notinfile Unknown LAB BLOOD ORDERABLES Final Res ult [facility] Department [place] [address] * Magnesium (12/20/2023 6:07 AM MACHINE SANDER) Magnesium 2.0 1.4 - 2.5 mg/dL [facility] Comment:Testing performed by : [facility], [address] [place] [address]., [address] Blood 12/20/2023 6:07 AM MACHINE SANDER 12/20/2023 10:47 AM MACHINE SANDER us Notinfile Unknown LAB BLOOD ORDERABLES Final Res ult Performing Organization Address [facility] Co de Phone Number [facility] [place] [address] * CS GLUCOSE (12/20/2023 6:07 AM MACHINE SANDER) Glucose 95 70 - 199 mg/dL [facility] [...] was last revised 2022. Testing performed by: [facility], [address] [place] [address]., [address] Blood 12/20/2023 6:07 AM MACHINE SANDER 12/20/2023 10:47 AM MACHINE SANDER us Notinfile Unknown LAB BLOOD ORDERABLES Final Res ult Performing Organization Address City/[facility] Co de Phone Number [facility] One [facility] [place] [address] * Differential, auto (12/20/2023 6:07 AM MACHINE SANDER) Neutrophil abs 2.6 1.5 - 6.5 K/cumm [facility] Comment:Testing performed by : [facility], [address] [place] [address] Imm gran abs 0.0 0.0 - 0.1 K/cumm [facility] Comment:Testing performed by : [facility], [address] [place]., [address] Lymphocyte abs 1.3 0.8 - 3.3 K/cumm [facility] Comment:Testing performed by : [facility], [address] [place]., [address] Monocyte abs 0.5 0.2 - 0.8 K/cumm [facility] Comment:Testing performed by : [facility], [address] [place]., [address] Eosinophil abs 0.2 0.0 - 0.5 K/cumm [facility] Comment:Testing performed by : [facility], [address] [place]., [address] Basophil abs 0.0 0.0 - 0.1 K/cumm [facility] Comment:Testing performed by : [facility], [address] [place] [address] Neutrophil pct 55.9 % [facility] Comment: Interpretive Data Percent cell count reference ranges are not reported, since discordance with absolute values may lead to misinterpretation of CBC data. Current Interpretive Data was last revised on 2018. Testing performed by: [facility], [address] [place] [address] Imm gran pct 0.9 % [facility] Comment: Interpretive Data Percent cell count reference ranges are not reported, since discordance with absolute values may lead to misinterpretation of CBC data. Current Interpretive Data was last revised on 2018. Testing performed by: [facility], [address] [place]., [address] Lymphocyte pct 27.9 % [facility] Comment: Interpretive Data Percent cell count reference ranges are not reported, since discordance with absolute values may lead to misinterpretation of CBC data. Current Interpretive Data was last revised on 2018. Testing performed by: [facility], [address] [place]., [address] Monocyte pct 10.2 % [facility] Comment: Interpretive Data Percent cell count reference ranges are not reported, since discordance with absolute values may lead to misinterpretation of CBC data. Current Interpretive Data was last revised on 2018. Testing performed by: [facility], [address] [place] [address] Eosinophil pct 4.7 % [facility] Comment: Interpretive Data Percent cell count reference ranges are not reported, since discordance with absolute values may lead to misinterpretation of CBC data. Current Interpretive Data was last revised on 2018. Testing performed by: [facility], [address] [place]., [address] Basophil pct 0.4 % [facility] Comment: Interpretive Data Percent cell count reference ranges are not reported, since discordance with absolute values may lead to misinterpretation of CBC data. Current Interpretive Data was last revised on 2018. Testing performed by: [facility], [address] [place] [address]., [address] Blood 12/20/2023 6:07 AM MACHINE SANDER 12/20/2023 10:47 AM MACHINE SANDER us Notinfile Unknown LAB BLOOD ORDERABLES Final Res ult [facility] [place] [address] * (ABNORMAL) CBC with auto differential (12/20/2023 6:07 AM MACHINE SANDER) WBC 4.7 3.8 - 9.9 K/cumm [facility] Comment:Testing performed by : [facility], [address] [place] [address], [place]., [address] Hgb 9.3(L) 13.0 - 17.5 g/dL [facility] Comment:Testing performed by : [facility], [address] [facility], [address] Hct 29.6(L) 38.9 - 50.3 % [facility] Comment:Testing performed by : [facility], [address] [facility], [address] Plt 253 150 - 400 K/cumm [facility] Comment:Testing performed by : [facility], [address] [facility], [address] MPV 11.2 9.1 - 12.3 fL [facility] Comment:Testing performed by : [facility], [address] [facility], [address] RBC 3.10(L) 4.30 - 5.80 M/cumm [facility] Comment:Testing performed by : [facility], [address] [facility], [address] MCV 95.5 81.3 - 96.4 fL [facility] Comment:Testing performed by : [facility], [address] [facility], [address] MCH 30.0 27.1 - 33.3 pg [facility] Comment:Testing performed by : [facility], [address] [facility], [address] MCHC 31.4(L) 32.3 - 35.7 g/dL [facility] Comment:Testing performed by : [facility], [address] [facility], [address] RDW CV 14.7 11.1 - 14.9 % [facility] Comment:Testing performed by : [facility], [address] [place] [address], [address] RDW SD 51.8(H) 35.7 - 48.1 fL [facility] Comment:Testing performed by : [facility], [address] [facility], [address] NRBC abs 0.00 0.00 - 0.01 K/cumm [facility] Comment:Testing performed by : [facility], 1 [facility], [place]., [address] Blood 12/20/2023 6:07 AM MACHINE SANDER 12/20/2023 10:47 AM MACHINE SANDER us Notinfile Unknown LAB BLOOD ORDERABLES Final Res ult [facility] Department [place] [address] documented in this encounter Visit Diagnoses Not on filedocumented in this encounter Care Teams Automobile Mechanic Apprentice Relationship Specialty Start Date End Date Rl Medina DO [address] [place] [address] PCP - General 08/09/17 05/25/24 documented as of this encounter
--- OUTSIDE RECORDS SUMMARY | 2024-11-05 22:59 | XMS_ITS | Encounter Summary ---
Author Organization [facility] Address [address] [facility] [address] [place] [address] Phone Care Team Providers Care Radio Equipment Repairer Name Role Phone Rl Medina DO Primary Care Provider Encounter Details Date Type Department Care Team (Late st Contact Info) Description 11/29/2023 Documentation [facility] Orthopaedic Surgery [address] [facility] 2nd Floor [address] [place] [address] Alonso Schilling DO [address] [place] [address] Social History Tobacco Use Types Packs/Day Years Used Date Smoking Tobacco: Former Cigarettes 1 11 0 11/05/1968 - 11/05/1979 Passive Smoke Exposure: Past Smokeless Tobacco: Never Alcohol Use Standard Drinks/Week Comments Yes 14 (1 standard drink = 0.6 oz pu re alcohol) social [facility] Utilities Answer Date Recorded In the past 12 months has [employer], gas, oil, or water [employer] threatened to shut off services in your [...] week 11/30/2023 How often do you attend [facility] or rastafari services? 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 Spoke with patient, family/friends, and Hematology. Preference for direct admission to [facility] for workup/evaluation by vascular surgery and Hematology. Planned for direct admission. 11/29: Patient awake, alert, and appearing clinically stable. Planning for direct admission today Medications (18) Active Scheduled: (13) acyclovir 400 mg Tab 400 mg 1 tab, Oral, BID, Start 11/16/23 21:00:00 FINANCIAL SUPERVISOR bisacodyl 10 mg Supp 10 mg 1 supp, Per rectum, QHS, Start 11/17/23 21:00:00 FINANCIAL SUPERVISOR cholecalciferol (vitamin D3) 125 mcg (5000 units) tab 125 mcg 1 tab, Oral, QBREAKFAST, Start 11/17/23 7:30:00 FINANCIAL SUPERVISOR diltiazem 240 mg/24 hours ERCap 240 mg 1 cap, Oral, BID, Start 11/16/23 21:00:00 FINANCIAL SUPERVISOR gabapentin 300 mg Cap 600 mg 2 cap, Oral, q8hr, Start 11/16/23 14:00:00 FINANCIAL SUPERVISOR insulin lispro 100 units/mL (3mL MDV) SSI Standard, Subcutaneous, WMHS, Start 11/16/23 17:00:00 FINANCIAL SUPERVISOR levETIRAcetam 500 mg Tab 1,000 mg 2 tab, Oral, BID, Start 11/16/23 21:00:00 FINANCIAL SUPERVISOR loratadine 10 mg Tab 10 mg 1 tab, Oral, Daily, Start 11/17/23 9:00:00 FINANCIAL SUPERVISOR nitrofurantoin macrocrystals-monohydrate 100 mg Cap 100 mg 1 cap, Oral, BID, Start 11/26/23 21:27:00 FINANCIAL SUPERVISOR, Stop 12/03/23 20:59:00 FINANCIAL SUPERVISOR nystatin 100,000 units/g Topical Powder (15gm Bulk) 1 tasha, Topical, BID, Start 11/18/23 21:00:00 FINANCIAL SUPERVISOR pantoprazole [address] Tab 40 mg 1 tab, Oral, Before breakfast, Start 11/17/23 7:00:00 FINANCIAL SUPERVISOR psyllium 3.4gm in 5.8gm SF Packet Powder-Pkt (1EA UD) 3.4 gm 1 packet, Oral, BID, Start 11/26/23 21:00:00 FINANCIAL SUPERVISOR tamsulosin 0.4 mg Oral Cap 0.8 mg 2 cap, Oral, QDINNER, Start 11/16/23 17:00:00 FINANCIAL SUPERVISOR Continuous: (0) PRN: (5) acetaminophen 500 mg Tab 1,000 mg 2 tab, Oral, q6hr, Start 11/26/23 11:23:00 FINANCIAL SUPERVISOR cyclobenzaprine 5 mg Tab 5 mg 1 tab, Oral, TID, Start 11/16/23 13:20:00 FINANCIAL SUPERVISOR docusate-senna 50 mg-8.6 mg Tab 2 tab, Oral, BID, Start 11/21/23 16:07:00 FINANCIAL SUPERVISOR glucagon 1 mg Powder Injection Kit 1 mg 1 EA, Subcutaneous, As Indicated, Start 11/16/23 13:42:00 FINANCIAL SUPERVISOR traMADol 50 mg Tab 50 mg 1 tab, Oral, q4hr, Start 11/26/23 11:23:00 FINANCIAL SUPERVISOR Examination consistent with the following: Vital Signs [...] be seen by urology while inpatient at [facility] for exchange in setting of UTI, since [...] 12/13 Heme - 12/14 NSGY - 12/24 NCIAL SUPERVISOR documented in this encounter Plan of Treatment Not on file documented as of this encounter Visit Diagnoses Not on filedocumented in this encounter Care Teams Radio Equipment Repairer Relationship Specialty Start Date End Date Rl Medina DO [address] [place] [address] PCP - General 08/09/17 05/25/24 documented as of this encounter
--- OUTSIDE RECORDS SUMMARY | 2024-11-05 22:59 | XMS_ITS | Encounter Summary ---
Author Organization [facility] Healthcare Address [address] [place] [address] Care Team Providers Care Cable Braider Name Role Phone Rl Medina DO Primary Care Provider Reason for Visit * Auth/Cert Specialty Diagnoses / Procedures Referred By Contac t Referred To Contact Diagnoses DVT Procedures na Referral ID Status Reason Start Date Expiration Date Visits Re quested Visits Authorized [id number] 1 1 Encounter Details Date Type Department Care Team (Latest Contact Info) Description 11/29/2023 4:36 PM FRONT DESK OFFICER - 12/10/2023 5:00 PM FRONT DESK OFFICER Hospital Encounter [facility] [address] [place] [address] Jolynn Cabrera MD [address] [place] [address] Errol Escobar MD [address] [place] [address] Kelli Valenzuela MD [address] [place] [address] Vibha Ramirez MD [address] [place] [address] Nicolas Dobbs MD [address] [place] [address] Jimenez Henao MD [address] [place] [address] Lower extremity edema (Primary Dx) Discharge Disposition: [...] In the past 12 months has e [employer], oil, or [employer] threatened to shut off services in [...] attend chur ch or protestant services? Never 11/30/2023 Do you belong to [...] in a senior care (including now)? 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 Not on file Not on file Not on file documented as of this encounter Last Filed Vital Signs Vital Sign Reading Time Taken Comments Blood Pressure 109/73 12/10/2023 3:00 PM FRONT DESK OFFICER Pulse 64 12/10/2023 3:00 PM FRONT DESK OFFICER Temperature 36.8 ??C (98.2 ??F) 12/10/2023 3:00 PM CS T Respiratory Rate 16 12/10/2023 3:00 PM FRONT DESK OFFICER Oxygen Saturation 96% 12/10/2023 3:00 PM FRONT DESK OFFICER Inhaled Oxygen Concentration - - Weight 95.4 kg (210 lb 5.1 oz) 12/10/2023 6:10 A M FRONT DESK OFFICER Height 172.7 cm (5' 8 ) 11/29/2023 4:55 PM FRONT DESK OFFICER Body Mass Index 31.98 11/29/2023 4:55 PM FRONT DESK OFFICER documented in this encounter Discharge Summaries * Jimenez Henao MD - 12/10/2023 3:03 PM CST Inpatient Discharge Summary BRIEF OVERVIEW Admitting Provider: Jolynn Cabrera MD Discharge Provider: Jimenez Henao MD Primary Care Physician at Discharge: Rl Medina DO [phone] Admission Date: 11/29/2023 Discharge Date: 12/10/2023 Admission Location: [facility] Problems/Diagnoses: Principal Problem: DVT (deep venous thrombosis) [...] STAY Presenting Problem/History of Present Illness: From [facility] by Errol Escobar MD Hira Evans is [...] 21 (11/29). He was subsequently discharged to [facility] on 11/16. He required ED visit on [...] imaging); he was subsequently discharged back to [facility]. Of note hehad a urine culture on [...] in setting of ongoing stool regimen at [facility]. He reports minimal improvement in his LE weakness. Given his edema he underwent a LE Duplex on 11/23 at [facility] that revealed DVTs over the bilateral SFjunctions, [...] OT evaluated him and recommended inpatient rehab. [facility] requested PM&R consult prior to discharge. PM&R recommended that patient is discharged to a SCI unit and agreed with [facility] to take. Strongly recommended attempts to manage worsening BLE/Scrotal edema. Patient started on IV diuretic therapy with brisk UOP and slow improvement of BLE edema. He was ultimately discharged to [facility]. Anemia Initial Hgb was stable in the [...] home ARB which had been held at [facility]. Given initiation of diuretic therapy, this continued to be held at discharge. Elevated transaminase level AST 65, ALT 80, new on admission. Unclear etiology. Resolved w/o intervention. Active Issues Requiring Follow-up: Complex UTI with L ureteral stent in place - patient will require to follow-up with urology at [facility] for ureteroscopy on 12/25/2023. At that [...] to when you areat [facility] (currently, [facility] are not able to be arranged) [...] [facility] 12/24/2023 2:20 PM [facility] BCT3 [facility] N CT [facility] Main IMG 12/24/2023 3:30 PM Carrie Jerez, TIRE MOLD TESTER SPINE [id number] NS T DESK OFFICER documented in this encounter Medications at Time [...] s Discharge to an Rehab facility [facility] documented in this encounter Progress Notes * [place] Ma, NARENDRA - 12/10/2023 3:17 PM CST 12/10/23 1516 Discharge Summary Discharge Disposition Acute Rehab [facility] Contact Number [phone] Facility Attending Name Geovany Facility Attending Contact Number [phone] Discharge Records Transfer Form Completed Equipment/Provider Needs No Home Needs Identified Discharge Additional Assistance Does the patient need discharge transport arranged? Yes Has discharge transport been arranged? Yes Details of Transportation [facility], #[id number] D/C Transport Anticipated Date 12/10/23 D/C Transport Anticipated Time 1630 Discharge Transportation Communication Mode of transport has been discussed with the patient/family. All are agreeable to the plan and understand their responsibilities to ensure the safe transfer. No further CM/SW intervention is anticipated at this time. Per medical team, patient is medically stable for discharge at this time. [facility] CM spoke with the patient/spouse, admissions, medical team, and RN regarding discharge planning, and all are agreeable to discharge. Post-acute care transfer packet completed and will be sent with the patient. RN provided with report number to nurses station ([phone] or [phone]). Room #314B provided by facility. Mode of transport has been discussed with the patient/family, MD, nursing staff. All are agreeable to plan and understand their responsibilities to ensure the safe transfer. [facility] to be [facility], #[id number] at 4:30 p.m. alliance manager informed patient/spouse that even if the patient's insurance benefit includes ambulance transport, it may not cover the full cost of the transportation. The patient may be responsible for any taw-un-orbhvo cost, including mileage beyond the nearestappropriate facility. Patient/spouse voiced understanding. If any further discharge needs arise, please contact the covering telephonic case manager. ARNULFO Romeo, rehabilitation supervisor T DESK OFFICER * Jimenez Henao MD - 12/10/2023 2:39 PM CST Daily Progress Note Division of Hospital Medicine Name: Hira Evans : 1950 Today's Date: December 10, 2023 Age: 73 y.o. male Admission: 11/29/2023 Bed: [id number] LOS: 11 days Subjective Chief complaint: edema [...] outpatient - has required intermittent SSI at [facility] - Diabetic diet, SSI ordered Seizure (HCC) [...] hematoma evacuation on 11/07 - Directly-admitted from [facility] - PT/OT - Orthopedics following - had sutures removed on 11/30 - note had some drainage from sutures, plan 7-10d course SSTI antibiotics using Bactrim for now - anticoagulation as elsewhere (see DVT ) Anemia Assessment & Plan - Stable Hgb ~8 - Maintain Hgb > 7 Paralysis of both lower limbs ([facility]/HCC) ([facility]) Assessment & Plan - Patient with paralysis of LE following recent spinal hematoma s/p emergent evacuation on 11/07 - Ongoing 11/09 strength of LE, sensation intact - Fall precautions Pulmonary embolism ([facility]) Assessment & Plan - Eval/mgt per above [...] also cover SSTI of back Prostate cancer ([facility]) Assessment & Plan - s/p prostatectomy HTN (hypertension) Assessment & Plan - Cont diltiazem - home ARB has been on hold at [facility] - continue to hold here initially * DVT (deep venous thrombosis) (CMS/HCC) ([facility]) Assessment & Plan Patient with complex history [...] 40 minutes which was spent performing a pryk-hh-yyex encounter and personally completing the provider-level activities documented in the note. This includes time spent prior to the visit and after the visit in direct care of the patient. This time does not include time spent in any separately reportable services. Jimenez Henao MD T DESK OFFICER * Tamia Luis, OT - 12/10/2023 10:24 [...] Non-retracted Scrotum Baseball Pitting 2+ Skin Integrity [place] hump;Flaking;Fibrosis;Hypohydrosis;Stemmer sign- positive;Shiny skin appearance;Squaring of toes;Taut;Impaired [...] the discharge summary. Tamia Luis OT 12/10/23 T DESK OFFICER * Jimenez Henao MD - 12/09/2023 11:27 AM CST Daily Progress Note Division of Hospital Medicine Name: Hira Evans : 1950 Today's Date: December 09, 2023 Age: 73 y.o. male Admission: 11/29/2023 Bed: [id number] LOS: 10 days Subjective Chief complaint: edema [...] outpatient - has required intermittent SSI at [facility] - Diabetic diet, SSI ordered Seizure ([facility]) Assessment & Plan - Patient developed reported [...] hematoma evacuation on 11/07 - Directly-admitted from [facility] - PT/OT - Orthopedics following - had sutures removed on 11/30 - note had some drainage from sutures, plan 7-10d course SSTI antibiotics using Bactrim for now - anticoagulation as elsewhere (see DVT ) Anemia Assessment & Plan - Stable Hgb ~8 - Maintain Hgb > 7 Paralysis of both lower limbs (CMS/HCC) ([facility]) Assessment & Plan - Patient with paralysis of LE following recent spinal hematoma s/p emergent evacuation on 11/07 - Ongoing 11/09 strength of LE, sensation intact - Fall precautions Pulmonary embolism ([facility]) Assessment & Plan - Eval/mgt per above [...] also cover SSTI of back Prostate cancer ([facility]) Assessment & Plan - s/p prostatectomy HTN (hypertension) Assessment & Plan - Cont diltiazem - home ARB has been on hold at [facility] - continue to hold here initially * DVT (deep venous thrombosis) (CMS/HCC) ([facility]) Assessment & Plan Patient with complex history [...] 35 minutes which was spent performing a nxtv-lu-pgdh encounter and personally completing the provider-level activities documented in the note. This includes time spent prior to the visit and after the visit in direct care of the patient. This time does not include time spent in any separately reportable services. Jimenez Henao MD T DESK OFFICER * Rebecca Leon, PT - 12/09/2023 8:36 [...] Non-retracted Scrotum Baseball Pitting 3+ Skin Integrity [place] hump;Fibrosis;Hypohydrosis;Stemmer sign-positive;Shiny skin appearance;Taut;Impaired contour around bony [...] the discharge summary. Rebecca Leon, KATHIE 12/09/23 T DESK OFFICER T DESK OFFICER * Nasir Manzanares MD - 12/08/2023 11:06 [...] edema in BLE. Awaiting acceptance back to [facility] (likely Sunday, 12/10). Rec lower extremity [...] For susceptibility results, refer to accession number [id number] on the urine culture from 10/11/23 MICROBIOLOGY [...] the appropriate orthopaedic surgery team, please use [email or web address] to page resident directly. If questions arise and the appropriate resident can't be reached or you are calling overnight, please contact [phone] (Sun- 7:30 PM - 6:30 AM - Floor Resident) or [phone] (24 hours/day - Consult Resident) Cosigned by Marcial Vu MD at 12/11/2023 10:49 AM FRONT DESK OFFICER T DESK OFFICER T DESK OFFICER * Jimenez Henao MD - 12/08/2023 10:51 AM CST Daily Progress Note Division of Hospital Medicine Name: Hira Evans : 1950 Today's Date: December 08, 2023 Age: 73 y.o. male Admission: 11/29/2023 Bed: [id number] LOS: 9 days Subjective Chief complaint: edema [...] hematoma evacuation on 11/07 - Directly-admitted from [facility] - PT/OT - Orthopedics following - had sutures removed on 11/30 - note had some drainage from sutures, plan 7-10d course SSTI antibiotics using Bactrim for now - anticoagulation as elsewhere (see DVT ) Anemia Assessment & Plan - Stable Hgb ~8 - Maintain Hgb > 7 Paralysis of both lower limbs (CMS/HCC) ([facility]) Assessment & Plan - Patient with paralysis of LE following recent spinal hematoma s/p emergent evacuation on 11/07 - Ongoing 11/09 strength of LE, sensation intact - Fall precautions Pulmonary embolism ([facility]) Assessment & Plan - Eval/mgt per above [...] home ARB has been on hold at [facility] - continue to hold here initially * [...] 35 minutes which was spent performing a vsof-hy-fydz encounter and personally completing the provider-level activities documented in the note. This includes time spent prior to the visit and after the visit in direct care of the patient. This time does not include time spent in any separately reportable services. Jimenez Henao MD T DESK OFFICER * Katharine Soto, OT - 12/07/2023 2:55 [...] not assigned to this patient, please call [phone]. Multi-Disciplinary Problems (from Occupational Therapy) Active Problems [...] all ADLs with SBA using AE PRN T DESK OFFICER * Jimenez Henao MD - 12/07/2023 11:39 AM CST Daily Progress Note Division of Hospital Medicine Name: Hira Evans : 1950 Today's Date: December 07, 2023 Age: 73 y.o. male Admission: 11/29/2023 Bed: [id number] LOS: 8 days Subjective Chief complaint: edema [...] outpatient - has required intermittent SSI at [facility] - Diabetic diet, SSI ordered Seizure (HCC) [...] hematoma evacuation on 11/07 - Directly-admitted from [facility] - PT/OT - Orthopedics following - had sutures removed on 11/30 - note had some drainage from sutures, plan 7-10d course SSTI antibiotics using Bactrim for now - anticoagulation as elsewhere (see DVT ) Anemia Assessment & Plan - Stable Hgb ~8 - Maintain Hgb > 7 Paralysis of both lower limbs ([facility]) ([facility]) Assessment & Plan - Patient with paralysis of LE following recent spinal hematoma s/p emergent evacuation on 11/07 - Ongoing 11/09 strength of LE, sensation intact - Fall precautions Pulmonary embolism ([facility]) Assessment & Plan - Eval/mgt per above [...] also cover SSTI of back Prostate cancer ([facility]) Assessment & Plan - s/p prostatectomy HTN (hypertension) Assessment & Plan - Cont diltiazem - home ARB has been on hold at [facility] - continue to hold here initially * DVT (deep venous thrombosis) ([facility]) ([facility]) Assessment & Plan Patient with complex history [...] 46 minutes which was spent performing a vkfl-cc-tlrv encounter and personally completing the provider-level activities documented in the note. This includes time spent prior to the visit and after the visit in direct care of the patient. This time does not include time spent in any separately reportable services. Jimenez Henao MD T DESK OFFICER T DESK OFFICER * Jimenez Henao MD - 12/06/2023 1:52 PM CST Daily Progress Note Division of Hospital Medicine Name: Hira Evans : 1950 Today's Date: December 06, 2023 Age: 73 y.o. male Admission: 11/29/2023 Bed: [id number] LOS: 7 days Subjective Chief complaint: edema [...] Prediabetes Assessment & Plan - Was on [facility] as outpatient - has required intermittent SSI at [facility] - Diabetic diet, SSI ordered Seizure (HCC) [...] hematoma evacuation on 11/07 - Directly-admitted from [facility] - PT/OT - Orthopedics following - had sutures removed on 11/30 - note had some drainage from sutures, plan 7-10d course SSTI antibiotics using Bactrim for now - anticoagulation as elsewhere (see DVT ) Anemia Assessment & Plan - Stable Hgb ~8 - Maintain Hgb > 7 Paralysis of both lower limbs ([facility]) ([facility]) Assessment & Plan - Patient with paralysis of LE following recent spinal hematoma s/p emergent evacuation on 11/07 - Ongoing 11/09 strength of LE, sensation intact - Fall precautions Pulmonary embolism ([facility]) Assessment & Plan - Eval/mgt per above [...] also cover SSTI of back Prostate cancer ([facility]) Assessment & Plan - s/p prostatectomy HTN (hypertension) Assessment & Plan - Cont diltiazem - home ARB has been on hold at [facility] - continue to hold here initially * DVT (deep venous thrombosis) ([facility]) ([facility]) Assessment & Plan Patient with complex history [...] 46 minutes which was spent performing a bpnt-gx-tsje encounter and personally completing the provider-level activities documented in the note. This includes time spent prior to the visit and after the visit in direct care of the patient. This time does not include time spent in any separately reportable services. Jimenez Henoa MD T DESK OFFICER * Nora Cardona, RD - 12/06/2023 12:49 [...] Adult Diet Regular Diet effective now Question: ([facility]) Diet type Answer: Regular 12/05/231714 [...] continue to monitor. Nora Cardona MS, RD, [facility], LD Cell T DESK OFFICER * Joann Matthews, PT - 12/06/2023 11:20 [...] the discharge summary. Joann Matthews, PT 12/06/23 T DESK OFFICER * Cici Dill - 12/06/2023 9:55 AM [...] treatment team and contact the PT or CRUSHER OPERATOR currently assigned to this patient. If a physical therapy clinician is not assigned to this patient, please call [phone]. 12/06/23 0985 PT Last Visit Session Type Treatment PT [...] Vijay Pickett, PT at 12/06/2023 5:52 PM FRONT DESK OFFICER T DESK OFFICER T DESK OFFICER * Linda Honeycutt, [facility] - 12/05/2023 4:33 PM CST Pharmacist Home Medication Review The clinical retail pharmacy manager has completed a medication review with the patient, , fill history, and medication list from [facility] and has made the following edits to the home medication list: Medication additions - Insulin lispro - sliding scale - Pantoprazole Medication deletions - Mounjaro 10 mg/0.5 mg once weekly (was on previously, however not currently on at [facility]) - Omeprazole 20 mg daily Medication alterations [...] taking immediately prior to admission per and [facility] medication list due to recent paraspinal hematoma. [...] known allergies. Linda Honeycutt, PharmD, BCPS Clinical Silverware Etcher - Internal Medicine/Transitions of Care T DESK OFFICER * Jimenez Henao MD - 12/05/2023 3:55 PM CST Daily Progress Note Division of Hospital Medicine Name: Hira Evans : 1950 Today's Date: December 05, 2023 Age: 73 y.o. male Admission: 11/29/2023 Bed: [id number] LOS: 6 days Subjective Chief complaint: edema [...] outpatient - has required intermittent SSI at [facility] - Diabetic diet, SSI ordered Seizure (HCC) [...] hematoma evacuation on 11/07 - Directly-admitted from [facility] - PT/OT - Orthopedics following - had sutures removed on 11/30 - note had some drainage from sutures, plan 7-10d course SSTI antibiotics using Bactrim for now - anticoagulation as elsewhere (see DVT ) Anemia Assessment & Plan - Stable Hgb ~8 - Maintain Hgb > 7 Paralysis of both lower limbs (CMS/HCC) ([facility]) Assessment & Plan - Patient with paralysis [...] home ARB has been on hold at [facility] - continue to hold here initially * [...] 52 minutes which was spent performing a vvuy-sb-mhvd encounter and personally completing the provider-level activities documented in the note. This includes time spent prior to the visit and after the visit in direct care of the patient. This time does not include time spent in any separately reportable services. Jimenez Henao MD T DESK OFFICER * Giovanna Cazares MD - 12/05/2023 10:52 [...] Marcial Barron MD at 12/11/2023 7:10 AM FRONT DESK OFFICER T DESK OFFICER T DESK OFFICER * Zehra Cook MD - 12/05/2023 9:04 [...] For susceptibility results, refer to accession number [id number] on the urine culture from 10/11/23 MICROBIOLOGY [...] the appropriate orthopaedic surgery team, please use [email or web address] to page resident directly. If questions arise and the appropriate resident can't be reached or you are calling overnight, please contact [phone] ([place]- 7:30 PM - 6:30 AM - Floor Resident) or [phone] (24 hours/day - Consult Resident) Cosigned by Marcial Vu MD at 12/05/2023 12:11 PM FRONT DESK OFFICER T DESK OFFICER T DESK OFFICER Associated attestation - Marcial Vu Jr., MD - 12/05/2023 12:11 PM FRONT DESK OFFICER Attending Attestation I have seen and examined [...] recommend that he continue to work with PT/OT/MOPHEAD SEWER and eventually return toinpatient spinal cord injury [...] and his , [facility] and also with his son, Marcial, over the phone. All are understanding and in agreement. Marcial Vu Jr., MD Wire Technician Department of Orthopaedic Surgery Division of Spine Surgery [employer] [facility] [employer] [facility] [employer] [facility] [employer] [place], [place] Bin Packer done by [employer]; therefore, variances and [...] recommend that he continue to work with PT/OT/MOPHEAD SEWER and eventually return toinpatient spinal cord injury [...] and his , Val, [facility] and also with his son, Marcial, over the phone. All are understanding and in agreement. Marcial Vu Jr., MD Wire Technician Department of Orthopaedic Surgery Division of Spine Surgery [facility] [place], [place] T DESK OFFICER * Jagruti Earl, PT - 12/05/2023 8:45 [...] treatment team and contact the PT or CRUSHER OPERATOR currently assigned to this patient. If a physical therapy clinician is not assigned to this patient, please call [phone]. Multi-Disciplinary Problems (from Physical Therapy) Active Problems [...] -- Goal Details: 5 minutes with supervision. T DESK OFFICER * Jimenez Henao MD - 12/04/2023 3:29 PM CST Daily Progress Note Division of Hospital Medicine Name: Hira Evans : 1950 Today's Date: December 04, 2023 Age: 73 y.o. male Admission: 11/29/2023 Bed: [id number] LOS: 5 days Subjective Chief complaint: edema Interval History NAEON. VSS. Hgb stable 8.7 overnight. No evidence of bleeding. States his main complaint is his marked BLE/scrotal/abdominal wall edema. Worked with PT/OT with patient moving to edge of bed but stillremains very weak overall. Discussed with patient that extensive clot burden is likely the primary dray driver of symptoms though will evaluate other [...] hematoma evacuation on 11/07 - Directly-admitted from [facility] - PT/OT - Orthopedics following - had sutures removed on 11/30 - note had some drainage from sutures, plan 7-10d course SSTI antibiotics using Bactrim for now - anticoagulation as elsewhere (see DVT ) Anemia Assessment & Plan - Stable Hgb ~8 - Maintain Hgb > 7 Paralysis of both lower limbs ([facility]) ([facility]) Assessment & Plan - Patient with paralysis of LE following recent spinal hematoma s/p emergent evacuation on 11/07 - Ongoing 11/09 strength of LE, sensation intact - Fall precautions Pulmonary embolism ([facility]) Assessment & Plan - Eval/mgt per above [...] also cover SSTI of back Prostate cancer ([facility]) Assessment & Plan - s/p prostatectomy HTN (hypertension) Assessment & Plan - Cont diltiazem - home ARB has been on hold at [facility] - continue to hold here initially * DVT (deep venous thrombosis) (CMS/HCC) ([facility]) Assessment & Plan Patient with complex history [...] 47 minutes which was spent performing a lsuu-wj-ufsl encounter and personally completing the provider-level activities documented in the note. This includes time spent prior to the visit and after the visit in direct care of the patient. This time does not include time spent in any separately reportable services. Jimenez Henao MD T DESK OFFICER * Maria T Woodruff, PT - 12/04/2023 [...] treatment team and contact the PT or CRUSHER OPERATOR currently assigned to this patient. If a physical therapy clinician is not assigned to this patient, please call [phone]. 12/04/23 1408 PT Last Visit Session Type [...] -- Goal Details: 5 minutes with supervision. T DESK OFFICER * Jessi Schwartz, OT - 12/04/2023 8:42 [...] surgeries) Additional Comments: Pt has been at [facility] and was using power w/c and working on slide board transfers Prior Function Prior Function Level of [place]: Independent with ADLs, Independent functional transfers, Independent [...] Repeat this name and address after me: Marcail Reddy [address] [place] [address] Without looking at the clock, tell me [...] all ADLs with SBA using AE PRN T DESK OFFICER * Galina Stoddard, OT - 12/03/2023 10:49 AM CST Occupational Therapy 12/03/23 1049 General OT Missed Visit Reason Patient declined (OT to follow up at later date/time.) T DESK OFFICER * Nicolas Dobbs MD - 12/03/2023 6:32 AM CST Daily Progress Note Division of Hospital Medicine Name: Hira Evans : 1950 Today's Date: December 03, 2023 Age: 73 y.o. male Admission: 11/29/2023 Bed: [id number] LOS: 4 days Subjective Chief complaint: edema [...] hematoma evacuation on 11/07 - Directly-admitted from [facility] - PT/OT - Orthopedics following - had sutures removed on 11/30 - note had some drainage from sutures, plan 7-10d course SSTI antibiotics using Bactrim for now - anticoagulation as elsewhere (see DVT ) * DVT (deep venous thrombosis) (CMS/HCC) ([facility]) Assessment & Plan Patient with complex history [...] outpatient - has required intermittent SSI at [facility] - Diabetic diet, SSI ordered Seizure (HCC) [...] home ARB has been on hold at [facility] - continue to hold here initially Code status : Full Code Diet : Adult Diet Restricted; Consistent Carbohydrate PT/OT Dispo Rec : PT Recommendation/Plan: Inpatient Rehab Facility / Supplementary Attestation The total encounter time on this service date was 50 minutes which was spent performing a idjp-ma-jhmw encounter and personally completing the provider-level activities documented in the note. This includes time spent prior to the visit and after the visit in direct care of the patient. This time does not include time spent in any separately reportable services. Nicolas Dobbs MD T DESK OFFICER * Zehra Cook MD - 12/03/2023 6:22 [...] For susceptibility results, refer to accession number [id number] on the urine culture from 10/11/23 MICROBIOLOGY [...] the appropriate orthopaedic surgery team, please use [email or web address] to page resident directly. If questions arise and the appropriate resident can't be reached or you are calling overnight, please contact [phone] ([place]- 7:30 PM - 6:30 AM - Floor Resident) or [phone] (24 hours/day - Consult Resident) Cosigned by Marcial Vu MD at 12/03/2023 7:35 AM FRONT DESK OFFICER T DESK OFFICER T DESK OFFICER * Nicolas Dobbs MD - 12/02/2023 6:33 AM CST Daily Progress Note Division of Hospital Medicine Name: Hira Evans : 1950 Today's Date: December 02, 2023 Age: 73 y.o. male Admission: 11/29/2023 Bed: [id number] LOS: 3 days Subjective Chief complaint: DVTs [...] hematoma evacuation on 11/07 - Directly-admitted from [facility] - PT/OT - Orthopedics following - had sutures removed on 11/30 - note had some drainage from sutures, plan 7-10d course SSTI antibiotics using Bactrim for now - anticoagulation as elsewhere (see DVT ) * DVT (deep venous thrombosis) ([facility]) ([facility]) Assessment & Plan Patient with complex history [...] outpatient - has required intermittent SSI at [facility] - Diabetic diet, SSI ordered Seizure ([facility]) Assessment & Plan - Patient developed reported [...] 7 Paralysis of both lower limbs (CMS/HCC) ([facility]) Assessment & Plan - Patient with paralysis of LE following recent spinal hematoma s/p emergent evacuation on 11/07 - Ongoing 1/5 strength of LE, sensation intact - Fall precautions Pulmonary embolism ([facility]) Assessment & Plan - Eval/mgt per above Prostate cancer ([facility]) Assessment & Plan - s/p prostatectomy HTN (hypertension) Assessment & Plan - Cont diltiazem - home ARB has been on hold at [facility] - continue to hold here initially Code [...] heparin drip (CBC, aPTT). Nicolas Dobbs MD T DESK OFFICER * Justin Chaudhari MD - 12/01/2023 10:32 AM CST Vascular Surgery Daily Progress Patient Name/MRN: Hira Evans [id number] Treatment Team: Vascular Surgery- Pager: [phone] Attending: Nicolas Dobbs* Today's Date: 12/01/2023 Room/Bed: [place] [id number] Admit Date: 11/29/2023 Code Status: Full Code Subjective Chief complaint: bilateral lower extremity DVTs Events During This Hospitalization: 73yoM with hx recent L4-5 PSF (10/23/23) c/b postop cardiac arrest and bilateral PE on AC c/b spinal hematoma requiring emergent decompression (11/08/22) resulting in BLE paraplegia s/p IVC filter (11/09) now re-admitted from [facility] w/ concern for extensive bilateral DVT on [facility] duplex. Events Over Last 24 Hours: - NAEO - Primarily bothered by scrotal swelling - not yet therapeutic on heparin gtt No Known Allergies Current Facility-Administered Medications Medication Dose Route Frequency Provider Last Rate Last Admin acetaminophen (TYLENOL) tablet 1,000 mg 1,000 mg oral Q6H Errol Escobra MD 1,000 mg at 12/01/23 0807 acyclovir [...] been signed. Information might be incomplete. Narrative [facility] - Department of Vascular Surgery, Vascular Laboratory [address] [place] [address] Lower Extremity Venous Ultrasound Report Preliminary Patient Name: HIRA EVANS : 1950 (73y 5m) Study Date: 11/30/2023 7:23:48 AM Gender: M Tech: Location: [id number] Ref Provider: ERROL ESCOBAR Quality: Adequate Order Provider: ERROL ESCOBAR 73yoM with hx recent L4-5 PSF (10/23/23) c/b postop cardiac arrest and bilateral PE on AC c/b spinal hematoma requiring emergent decompression (11/08/22) resulting in BLE paraplegia s/p IVC filter (11/09) now re-admitted from [facility] w/ concern for extensive bilateral DVT on [facility] duplex. PROCEDURES: Vascular Report: Venous Duplex imaging was performed bilaterally in the lower extremities. The common femoral, femoral, popliteal, posterior tibial, peroneal veins were evaluated for patency, spontaneity and phasicity with Doppler, compression and augmentation maneuvers. Great saphenous vein proximal at the junction was evaluated with compression maneuvers. INDICATIONS: Swelling lower extremity, bilateral. FINDINGS: Performing Bread Molder: Josiane Chance RVT. Right: Duplex scan reveals [...] performed. ATTESTATION: Electronically Signed By: 2023-11-30 07:55:07 FRONT DESK OFFICER Assessment/Plan Principal Problem: DVT (deep venous thrombosis) [...] s/p IVC filter (11/09) now re-admitted from [facility] w/ concern for extensive bilateral DVT on [facility] duplex. Plan - Recommend continuing therapeutic anticoagulation - Given patients current symptoms are not related to his lower extremities, will defer thrombectomyat this time and continue with AC - Vascular available as needed Justin Chaudhari MD General Surgery PGY-2 PGY-2 General Surgery Vascular Consult Vascular Inpatient Floor Vascular Outpatient Clinic Cosigned by Marcial Barron MD at 12/04/2023 12:39 PM FRONT DESK OFFICER T DESK OFFICER T DESK OFFICER * Nicolas Dobbs MD - 12/01/2023 8:01 AM CST Daily Progress Note Division of Hospital Medicine Name: Hira Evans : 1950 Today's Date: December 01, 2023 Age: 73 y.o. male Admission: 11/29/2023 Bed: [id number] LOS: 2 days Subjective Chief complaint: Edema, [...] hematoma evacuation on 11/07 - Directly-admitted from [facility] - PT/OT - Orthopedics following - had sutures removed on 11/30 - note had some drainage from sutures, plan 7-10d course SSTI antibiotics using Bactrim for now - anticoagulation as elsewhere (see DVT ) * DVT (deep venous thrombosis) ([facility]/HCC) ([facility]) Assessment & Plan Patient with complex history [...] outpatient - has required intermittent SSI at [facility] - Diabetic diet, SSI ordered Seizure (HCC) [...] home ARB has been on hold at [facility] - continue to hold here initially Code [...] heparin infusion (CBC, aPTT). Nicolas Dobbs MD T DESK OFFICER * Francisco Javier Frank, PT - 11/30/2023 [...] again Prior Function Prior Function Level of [place]: Independent with ADLs, Independent functional transfers, Independent with ambulation, Independent with homemaking with ambulation Lives With: Spouse Receives Help From: Spouse/Significant other, Family (full time staff interpreter assist) Fall within the last 6 months: No Home Living Home Living Type of Home: House Home Layout: One level Home Access: Stairs to enter with rails Entrance Stairs-Rails: Right Entrance Stairs-Number of Steps: 2 Home Mobility Equipment-Available: Wheeled walker Home Mobility Equipment-Currently Using: Wheeled walker (had been using [employer] prior to last hospital stay, has been working on slideboard transfers at [facility].) Precautions Precautions Precautions: Spinal/Back Precaution Comments: PT [...] -- Goal Details: 5 minutes with supervision. T DESK OFFICER * iVbha Ramirez MD - 11/30/2023 11:46 AM CST Daily Progress Note Division of Hospital Medicine Name: Hira Evans : 1950 Today's Date: November 30, 2023 Age: 73 y.o. male Admission: 11/29/2023 Bed: [place] [id number] LOS: 1 days Subjective Chief complaint: leg [...] Ph.D Assessment/Plan * DVT (deep venous thrombosis) ([facility]) ([facility]) Assessment & Plan Patient with complex history [...] hematoma evacuation on 11/07 - Directly-admitted from [facility] - PT/OT - Orthopedics following - had sutures removed on 11/30 - note had some drainage from sutures, plan 7-10d course SSTI antibiotics using Bactrim for now Prediabetes Assessment & Plan - Was on mounjaro as outpatient - has required intermittent SSI at [facility] - Diabetic diet, SSI ordered Seizure ([facility]) Assessment & Plan - Patient developed reported [...] 7 Paralysis of both lower limbs (CMS/HCC) ([facility]) Assessment & Plan - Patient with paralysis of LE following recent spinal hematoma s/p emergent evacuation on 11/07 - Ongoing 11/09 strength of LE, sensation intact - Fall precautions Pulmonary embolism ([facility]) Assessment & Plan - Eval/mgt per above [...] also cover SSTI of back Prostate cancer ([facility]) Assessment & Plan - s/p prostatectomy HTN (hypertension) Assessment & Plan - Cont diltiazem - home ARB has been on hold at [facility] - continue to hold here initially Code [...] from iv heparin drip. Vibha Ramirez MD T DESK OFFICER * Norberto Silverman MD - 11/30/2023 5:54 AM CST Vascular Surgery Daily Progress Patient Name/MRN: Hira Evans [id number] Treatment Team: Vascular Surgery- Pager: [phone] Attending: Nicolas Dobbs* Today's Date: 12/01/2023 Room/Bed: [id number] Admit Date: 11/29/2023 Code Status: Full Code Subjective Chief complaint: bilateral lower extremity DVTs Events During This Hospitalization: 73yoM with hx recent L4-5 PSF (10/23/23) c/b postop cardiac arrest and bilateral PE on AC c/b spinal hematoma requiring emergent decompression (11/08/22) resulting in BLE paraplegia s/p IVC filter (11/09) now re-admitted from [facility] w/ concern for extensive bilateral DVT on [facility] duplex. Events Over Last 24 Hours: - [...] been signed. Information might be incomplete. Narrative [facility] - Department of Vascular Surgery, Vascular Laboratory [address] [place] [address] Lower Extremity Venous Ultrasound Report Preliminary Patient Name: HIRA EVANS : 1950 (73y 5m) Study Date: 11/30/2023 7:23:48 AM Gender: M Tech: Location: [id number] Ref Provider: ERROL ESCOBAR Quality: Adequate Order Provider: ERROL ESCOBAR 73yoM with hx recent L4-5 PSF (10/23/23) c/b postop cardiac arrest and bilateral PE on AC c/b spinal hematoma requiring emergent decompression (11/08/22) resulting in BLE paraplegia s/p IVC filter (11/09) now re-admitted from [facility] w/ concern for extensive bilateral DVT on [facility] duplex. PROCEDURES: Vascular Report: Venous Duplex imaging was performed bilaterally in the lower extremities. The common femoral, femoral, popliteal, posterior tibial, peroneal veins were evaluated for patency, spontaneity and phasicity with Doppler, compression and augmentation maneuvers. Great saphenous vein proximal at the junction was evaluated with compression maneuvers. INDICATIONS: Swelling lower extremity, bilateral. FINDINGS: Performing Bread Molder: Josiane Chance RVT. Right: Duplex scan reveals [...] performed. ATTESTATION: Electronically Signed By: 2023-11-30 07:55:07 FRONT DESK OFFICER Assessment/Plan Principal Problem: DVT (deep venous thrombosis) [...] s/p IVC filter (11/09) now re-admitted from [facility] w/ concern for extensive bilateral DVT on [facility] duplex. Plan - Ortho spine ok with anticoagulation - Start heparin gtt - Continue to monitor Norberto Craig MD PGY-2 General Surgery Vascular Consult Vascular Inpatient Floor Vascular Outpatient Clinic Cosigned by Marcial Barron MD at 12/04/2023 12:39 PM FRONT DESK OFFICER T DESK OFFICER T DESK OFFICER documented in this encounter H&P Notes * Errol Escobar MD - 11/29/2023 5:32 PM CST History and Physical Division of [facility] Medicine Name: Hira Evans : 1950 Today's Date: November 29, 2023 Age: 73 y.o. male Admit Date: 11/29/2023 Bed: [id number] LOS: 0 days Subjective Hira Evans is [...] 21 (11/29). He was subsequently discharged to [facility] on 11/16. He required ED visit on [...] imaging); he was subsequently discharged back to [facility]. Of note hehad a urine culture on [...] in setting of ongoing stool regimen at [facility]. He reports minimal improvement in his LE weakness. Given his edema he underwent a LE Duplex on 11/23 at [facility] that revealed DVTs over the bilateral SFjunctions, bilateral common femoral, bilateral proximal and mid femoral, right popliteal, and rightposterior tibial veins (imaging note available for review in system). Given ongoing progression of edema he was directly admitted for hematology and vascular surgery evaluation. He arrived to the floor HD stable. I have reviewed and summarized prior records in [facility], [facility], and [facility] Everywhere. Review of Systems All other systems [...] 1 tablet (10 mg total) by mouth poultry dressing worker before breakfast [DISCONTINUED] coenzyme Q10 100 mg capsule Take 1 capsule (100 mg total) by mouth poultry dressing worker before breakfast [DISCONTINUED] enoxaparin (LOVENOX) 40 mg/0.4 [...] duplex here givenresults not in system from [facility] and basic labs. - Vascular and Hematology [...] home ARB has been on hold at [facility] - continue to hold here initially Prediabetes Assessment & Plan - Was on mounjaro as outpatient - has required intermittent SSI at [facility] - Diabetic diet, SSI ordered Seizure (HCC) [...] hematoma evacuation on 11/07 - Directly-admitted from [facility] - PT/OT - Multidisciplinary discussion regarding anticoagulation with above DVTs Anemia Assessment & Plan - Stable Hgb ~8 - Maintain Hgb > 7 Paralysis of both lower limbs (CMS/HCC) ([facility]) Assessment & Plan - Patient with paralysis of LE following recent spinal hematoma s/p emergent evacuation on 11/07 - Ongoing 1/ strength of LE, sensation intact - Fall precautions Pulmonary embolism ([facility]) Assessment & Plan - Eval/mgt per above Hydronephrosis with urinary obstruction due to renal calculus Assessment & Plan - Patient with noted progressed hydronephrosis during CT this month in setting of ureteral stones - No urinary retention or abd/back pain at this time - Obtain UA/micro - check Renal US for trend - Urology consult Prostate cancer ([facility]) Assessment & Plan - s/p prostatectomy Code status : Full Code Diet : Adult Diet Restricted; Consistent Carbohydrate Supplementary Attestation The total encounter time on this service date was 150 minutes which was spent performing a qpth-bg-ieho encounter and personally completing the provider-level activities [...] per vascular recs. LE venous duplex pending. T DESK OFFICER T DESK OFFICER T DESK OFFICER documented in this encounter Consult Notes * Tyrone Martínez MD - 12/04/2023 7:08 PM CSTAssociated Order(s): CONSULT TO PM&R PHYSICIAN Patient Name: HIRA EVANS Medical Record Number (MRN): [id number] Date of (): 1950 Encounter Date: 11/28/2023 [...] CA s/p prostatectomy, who was admitted to [facility] on 11/29/2023 forsudden onset BLE numbness and inability to ambulate consistent with cauda equina syndrome, who was found to have dorsal epidural and subdural hematoma from T5-S1. Patient underwent T5-L5 laminectomy and hematoma evacuation with Dr. Vu. He had IVC filter placed. His course was complicated by ABLA, s/p 4u pRBC. Hematology recommended holding off anticoagulation for 2 weeks. Patient was discharged to [facility] where he had good participation with therapy, but was found to haveBLE DVT (extensive - from groin down) and worsening BLE edema which interfered with participation in therapy. He was transferred back to [facility] where he ws initiated on [...] elbow flexion, elbow extension, wrist extension, and pyridine recovery operator LUE: 5/5 with shoulder abduction, elbow flexion, elbow extension, wrist extension, and pyridine recovery operator RLE: Able to partially wiggle ankle, [...] CA s/p prostatectomy, who was admitted to [facility] on 11/07/2023 for sudden onset BLE numbness [...] evaluated by and continuing to work with PT/OT/MOPHEAD SEWER for assessment of current function and discharge [...] Nazario Lynn MD at 12/05/2023 10:29 AM FRONT DESK OFFICER T DESK OFFICER T DESK OFFICER Associated attestation - Nazario Lynn MD - 12/05/2023 10:29 AM FRONT DESK OFFICER ATTENDING DOCUMENTATION I have seen and examined [...] he was transferred from inpatient rehab to [facility] on 11/29, with initiation of [...] passive maneuvering of lower limbs to facilitate [place] of mobility. Upon medical stabilization, return to inpatient spinal cord injury rehabilitation with PT, OT, and physiatric supervision. Nazario Lynn Wire Technician Physical Medicine and Rehabilitation 75 minutes total [...] 11/19 after difficulty with CIC and traumatic harrsi placement; can void trial / resume CIC per primary team Thank you for allowing us to participate in the care of this patient. For any questions or concerns, please page Urology through the lead sewage plant operator. Jessenia Ash MD 11/30/2023 Cosigned by George Ocampo DO at 11/30/2023 12:41 PM FRONT DESK OFFICER T DESK OFFICER T DESK OFFICER Associated attestation - George Ocampo DO - 11/30/2023 12:41 PM FRONT DESK OFFICER I have personally seen and examined the [...] George Ocampo, PGY-6 [facility] Endourology Fellow Pager: [phone] * Oz Elena MD - 11/30/2023 7:34 [...] outpatient follow up. He was discharged to [facility] 11/16/23. Since then he had new LE [...] Oz CHAUDHARY Hematology and Oncology fellow, PGY-4 [facility] For questions about this consult, please contact the inpatient Hematology TIRE MOLD TESTER: Rae Weller [phone] Sunday - Sunday, 8 AM to 5 [...] and restart therapeutic AC once cleared by [facility] during outpatient follow up. He was discharged to [facility] 11/16/23. Since then he had new LE edema and was found to have LE DVT 11/23/23, now presenting with progressively worse BLE edema+scrotal edema+edema extending to lower abdomen. Hematology is consulted given concern for progressive DVTs and possible extension till the IVC filter, for anticoagulation recommendations. Since discharge to [facility] 11/16, he had an ED visit 11/19 for traumatic harris placement requiring urology harris placement over a wire. He had a CT during the encounter revealing interval decreased sizeof left perinephric hematoma with new left hydronephrosis with stones in the left proximal ureter with L double J stent in place (unclear of efficacy based on imaging); he was subsequently dischargedback to [facility]. Of note he had a urine culture on 11/21 that was positive for Enterobacter cloacae (S - bactrim, macrobid, cefepime) - obtained due to worsening leukocytosis. He has been on macrobid since with interval resolution of leukocytosis and no urinary complaints at this time. He also has developed LE edema over the last 10 days. LE Duplex on 11/23 at [facility] that revealed DVTs over the bilateral SF [...] did tell us that the providers at [facility] had wanted to start DVT PPX last week and she had not wanted to do that because of the risk for bleeding. Past Medical History: Patient Active Problem List Diagnosis Date Noted DVT (deep venous thrombosis) ([facility]) ([facility]) 11/29/2023 Anemia 11/29/2023 Paraspinal hematoma 11/29/2023 Hyponatremia 11/29/2023 Elevated transaminase level 11/29/2023 Lower extremity edema 11/29/2023 Scrotal swelling 11/29/2023 Seizure ([facility]) 11/29/2023 Prediabetes 11/29/2023 Kidney stone 11/09/2023 Paralysis of both lower limbs ([facility]) ([facility]) 11/07/2023 Pulmonary embolism ([facility]) 10/26/2023 S/P spinal fusion 10/23/2023 Cardiac arrest ([facility]) 10/23/2023 Left perinephric collection, likely hematoma [...] 1 tablet (10 mg total) by mouth poultry dressing worker before breakfast 11/29/23 Fidelia Perdue MD coenzyme Q10 100 mg capsule Take 1 capsule (100 mg total) by mouth poultry dressing worker before breakfast 11/29/23 Fidelia Perdue MD enoxaparin [...] Kathia Salas MD at 12/02/2023 11:25 PM FRONT DESK OFFICER T DESK OFFICER T DESK OFFICER Associated attestation - Kathia Salas MD - 12/02/2023 11:25 PM FRONT DESK OFFICER I have seen and examined the patient on 11/30/2023. I agree with the findings and plan of care as documented in the resident's/fellow's note.. * Hayden Youngblood MD - 11/29/2023 9:06 PM CSTAssociated Order(s): IP CONSULT TO ORTHO SPINE Orthopaedic Surgery Spine Service Consult November 29, 2023 9:06 PM Reason for Consult: guidance for anticoagulation postop Requesting Provider: [facility] hospitalist service This patient was evaluated within [...] last 10 days prompting his return from [facility] to [facility]. Ortho spine has been consulted to assist [...] day 11/16/23 12/16/23 Aleman, Francisco Javier Kaiser, TIRE MOLD TESTER tamsulosin (FLOMAX) 0.4 mg extended release capsule Take 2 capsules (0.8 mg total) by mouth daily with dinner 10/30/23 11/29/23 Rafael Rodriguez NP traMADoL (ULTRAM) 50 mg tablet Take 1 tablet (50 mg total) by mouth every 4 (four) hours as needed for pain 11/16/23 Nasir Manzanares MD cetirizine (ZyrTEC) 10 mg tablet Take 1 tablet (10 mg total) by mouth poultry dressing worker before breakfast 11/29/23 Fidelia Perdue MD coenzyme Q10 100 mg capsule Take 1 capsule (100 mg total) by mouth poultry dressing worker before breakfast 11/29/23 Fidelia Perdue MD enoxaparin [...] extension 5/5 5/5 Wrist flexion 5/5 5/5 Ob Gyn 5/5 5/5 Interosseous of hand 5/5 5/5 [...] his care while he is inpatient at [facility]. Plan: Admitted to [facility] hospitalist service Further Workup: Further discussion with multiple consulting services regarding anticoagulation planning Further Imaging: None at this time Immobilization: [id number] TLSO when up out of bed Neuro [...] scheduled for 12/03/[address] Vu at [facility]. -- -- -- Hayden Youngblood M.D., Ph.D. Department of Orthopaedic Surgery, PGY-2 [facility] Please use [facility] to page/call the appropriate Orthopaedic Surgery Team/Resident if questions or concerns. Normal business hours: If you know the resident's name on the appropriate orthopaedic surgery team,please use the Directory Search at [facility] to page resident directly. If questions arise and the appropriate resident can't be reached or you are calling overnight, please contact [phone] ([facility] 7:30 PM - 6:30 AM - Floor Resident) or [phone] (24 hours/day - Consult Resident) Cosigned by Marcial Vu MD at 11/30/2023 10:10 AM FRONT DESK OFFICER T DESK OFFICER T DESK OFFICER Associated attestation - Marcial Vu Jr., MD - 11/30/2023 10:10 AM FRONT DESK OFFICER Attending Attestation I have seen and examined [...] continue to follow. Marcial Vu Jr., MD Wire Technician Department of Orthopaedic Surgery Division of Spine Surgery [facility] [employer] [place], [place] Bin Packer done by [employer]; therefore, variances and inaccuracies may occur. * Giovanna Cazares MD - 11/29/2023 7:07 PM CSTAssociated Order(s): IP CONSULT TO VASCULAR SURGERY Images from the original note were not included. VASCULAR SURGERY [facility] CONS[facility] NOTE Admit Date: 11/29/2023 Current Service: Medical Current Location: [id number] Requesting Consult: Jolynn Cabrera* Consult Provider: Resident [...] s/p IVC filter (11/09) now re-admitted from [facility] w/ concern for bilateral DVT. Given patient's [...] s/p IVC filter (11/09) now re-admitted from [facility] w/ concern for bilateral DVT. Patient was discharged to [facility] on 11/16 following post-operative complication after spinal [...] ago on 11/23, he was noted on [facility] duplex to reportedly have DVT involving bilateral [...] Marcial Barron MD at 11/30/2023 7:08 AM FRONT DESK OFFICER T DESK OFFICER T DESK OFFICER Associated attestation - Marcial Barron MD - 11/30/2023 7:08 AM FRONT DESK OFFICER I have seen and examined the patient [...] to get a hold of anyone at [facility] to inquire. Asked patient if he would like RN to remove, he prefers it to stay to continue to help with swelling. Informed patient how to remove, as will need to be removed tomorrow per OT. T DESK OFFICER * Mary Meléndez RN - 12/02/2023 6:36 PM CST Attempted to call [facility] in regards to blood stop time but no answer. charge nurse notified. Will notify operations supervisor 2nd shift. T DESK OFFICER * Daisy Barnes RN - 11/29/2023 4:54 PM CST Pt arrived in [id number] notified attending MD Jolynn Cabrera T DESK OFFICER documented in this encounter Miscellaneous Notes * Provider Query - Jimenez Henao MD - 12/10/2023 5:00 PM FRONT DESK OFFICER Specify the stage of Chronic Kidney Disease [...] part of the patient???s medical record. Sincerely, [facility] Information Management T DESK OFFICER * Plan of Care - Angelina Thomas [...] integrity will decrease Outcome: Adequate for Discharge T DESK OFFICER * Consults, Subsequent - Jessenia Ash MD - 12/10/2023 1:56 PM FRONT DESK OFFICER Brief Urology Note Primary team reached out [...] Jessenia Ash MD Resident Physician, Urology 12/10/23 T DESK OFFICER * Plan of Care - Madison Ma RN - 12/10/2023 12:27 PM CST Per Medical Chart/Rounds/IDR: 73 year old male patient admitted for DVT. Per IDR rounds with Computer Typesetter, Size Maker, Charge Nurse, and MD, the patient is [...] any outpatient urology appointments that are on [facility] campus. ADD: 12/11 Plan & referrals made/in place: [facility]: [phone] Support following discharge: facility/family Transportation: EMS F/U Appointments: patient to discharge to IRF Patient's Identified Problem/Goal Problem: Ensure acute medical needs are met and that patient has a safe discharge plan. Goal: Secure a discharge plan that patient/family are agreeable with and ensure patient has continuum of care. Patient and/or family are agreeable with plan. alliance manager will continue to follow and assist with discharge planning as needed. If any further discharge needs arise, please contact the covering telephonic case manager. ARNULFO Romeo, rehabilitation supervisor T DESK OFFICER * Plan of Care - Seth Arias [...] hygiene; neuro checks; monitor labs; monitor vitals T DESK OFFICER * Plan of Deny - Seth Arias [...] hygiene; neuro checks; monitor labs; monitor vitals T DESK OFFICER * Plan of Deny - Tia Riggins [...] hygiene; neuro checks; monitor labs; monitor vitals T DESK OFFICER * Plan of Deny - Seth Arias [...] hygiene; neuro checks; monitor labs; monitor vitals T DESK OFFICER * Plan of Care - Tia Riggins [...] hygiene; neuro checks; monitor labs; monitor vitals T DESK OFFICER * Plan of Hood Mendosa RN - 12/08/2023 12:00 AM FRONT DESK OFFICER Problem: Health Behavior: Goal: Understanding of discharge [...] awake. Edema grossly unchanged. Carolin care done T DESK OFFICER * Provider Query - Jimenez Henao MD - 12/07/2023 3:10 PM FRONT DESK OFFICER Clinical Indicators/Treatments: 11/29 Medicine H&P: UTI -Patient diagnosed with UTI in setting of harris on 11/21 with growth of Enterobacter cloacae. Denies symptoms, though was noted to have leukocytosis that has improved. No urinary complaints at this time. Continued on Bactrim. Specify the confirmed or suspected relationship between the Urinary Tract Infection and the urinarycatheter, (see the approved [facility] guidelines below). A cause and effect relationship [...] record. Belen Gregory RN BSN CCDS Clinical High School Music Teacher [facility] [phone] [email or web address] T DESK OFFICER * Provider Query - Jimenez Henao MD - 12/07/2023 3:09 PM FRONT DESK OFFICER Clinical Indicators/Treatments: 12/04 PMR consult: 73 y.o. male with PMH of recent L4-5 PSF c/b post-op cardiac arrest, rib fractures from CPR, and b/l PE on therapeutic anticoagulation, GERD, CKD, b/l total knee replacements, melanoma, and prostate CA s/p prostatectomy, who was admitted to [facility] on 11/29/2023 for sudden onset BLE numbness and inability to ambulate consistent with cauda equina syndrome, who was found to have dorsal epidural and subdural hematoma from T5-S1. Patient underwent T5-L5 laminectomy and hematoma evacuation with Dr. Vu. He had IVC filter placed. Patient was discharged to [facility] where he had good participation with therapy, but was found to haveBLE DVT (extensive - from groin down) and worsening BLE edema which interfered with participation in therapy. He was transferred back to [facility] where he ws initiated on heparin gtt with plan to transition to lovenox BID. Current Functional Status: Mod-max assist with mobility, mod-dependent with ADLs On fall precautions. PT/OT consulted. [employer] Isotour mattress ordered. Specify a diagnosis that [...] 2007 Page: 143 Effective with discharges: [facility]: Cancer Fatigue From the ICD-10-CM Coding Guidelines, use of terms such as likely, suspected, possible, or probable(associated with a specific diagnosis that is being evaluated, monitored, or treated as if it exists) are acceptable and can be coded in the inpatient setting when documented at the time of discharge. This documentation will become part of the patient???s medical record. Belen Gregory RN BSN [facility] Clinical High School Music Teacher [facility] [phone] [email or web address] T DESK OFFICER * Provider Query - Jimenez Henao MD - 12/07/2023 3:08 PM FRONT DESK OFFICER Specify the significance of the abnormal BMI (body mass index) and document in the medical record and on the form below. Clinical Indicators/Treatments: BMI 33.05 on admission with weight 217 lbs. Noble weight 150 lbs. Elevated BMI ___Obesity _x_Other, [...] of the patient???s medical record. NARENDRA Telles [facility] Clinical High School Music Teacher [facility] [phone] [email or web address] T DESK OFFICER * Consults, Subsequent - Nazario Lynn MD - 12/07/2023 2:33 PM FRONT DESK OFFICER Physiatry Follow Up HPI Hira Evans is [...] he was transferred from inpatient rehab to [facility] on 11/29, with initiation of [...] Please contact with any questions. Nazario Lynn Wire Technician Physical Medicine and Rehabilitation 35 minutes total collaborative time spent on hospital floor in face to face evaluation and discussion with patient and family member, in communication with medical and clinical care team, and in review and coordination and planning of patient care. T DESK OFFICER * Plan of Care - Tia Riggins [...] hygiene; neuro checks; monitor labs; monitor vitals T DESK OFFICER * Plan of Care - Mary Hoyos RN - 12/06/2023 10:52 PM FRONT DESK OFFICER Goals: Clinical Goals for the Shift: q2 [...] impaired skin integrity will decrease Outcome: Progressing T DESK OFFICER * Wiliam Ma Madison, RN - 12/06/2023 2:14 PM CST Per Medical Chart/Rounds/IDR: 73 year old male patient admitted for DVT. Per IDR rounds with Computer Typesetter, Size Maker, Charge Nurse, and MD, the patient is not medicallystable for discharge at this time. Patient receiving IV lasix to reduce swelling and also needs anti factor Xa level drawn overnight to assess for dose adjustment for lovenox. ADD: 12/07 Plan & referrals made/in place: [facility]: [phone] 10:39 AM: CM provided Fifi update on [...] Patient and/or family are agreeable with plan. alliance manager will continue to follow and assist with discharge planning as needed. If any further discharge needs arise, please contact the covering telephonic case manager. ARNULFO Romeo, rehabilitation supervisor T DESK OFFICER * Plan of Care - Kayce Hopper RN - 12/06/2023 1:50 PM FRONT DESK OFFICER Problem: Health Behavior: Goal: Understanding of discharge [...] Clinical Goals for the Shift: VS, safety T DESK OFFICER * Plan of Care - Mary Hoyos RN - 12/05/2023 11:51 PM FRONT DESK OFFICER Goals: Clinical Goals for the Shift: Monitor [...] impaired skin integrity will decrease Outcome: Progressing T DESK OFFICER * Plan of Care - Madison Ma RN - 12/05/2023 2:52 PM CST Per Medical Chart/Rounds/IDR: 73 year old male patient admitted for DVT. Per IDR rounds with Computer Typesetter, Size Maker, Charge Nurse, and MD, the patient is [...] Plan & referrals made/in place: [facility]: [phone] 12:20 PM: CM provided liaison with update [...] Patient and/or family are agreeable with plan. alliance manager will continue to follow and assist with discharge planning as needed. If any further discharge needs arise, please contact the covering telephonic case manager. ARNULFO Romeo, rehabilitation supervisor T DESK OFFICER * Plan of Care - Wendy Gallardo RN - 12/05/2023 8:10 AM CST Pt c/o mild pain to back. Pt denies need for additional pain medication other than scheduled Tylenol. No other complaints at this time. VSS. Heparin gtt infusing. aPTT therapeutic this AM. Next aPTT lab draw is tomorrow 12/06 @ 0500. T DESK OFFICER * Plan of Care - Mary Meléndez [...] and discharge planning will improve Outcome: Ongoing T DESK OFFICER * Plan of Care - Sheree Briones [...] impaired skin integrity will decrease Outcome: Progressing T DESK OFFICER * Plan of Care - Madison Ma RN - 12/03/2023 1:36 PM CST Per Medical Chart/Rounds/IDR: 73 year old male patient admitted for DVT. Per IDR rounds with Computer Typesetter, Size Maker, Charge Nurse, and MD, the patient is not medicallystable for discharge at this time. Patient currently on heparin drip. Patient will need to be seen by PT/OT for updated recommendations for return to [facility]. [facility] has requested a PM&R consult. CM made MD aware. ADD: 12/05 Plan & referrals made/in place: [facility]: [phone] 12/03: requested PM&R consult; made aware by [...] Patient and/or family are agreeable with plan. alliance manager will continue to follow and assist with discharge planning as needed. If any further discharge needs arise, please contact the covering telephonic case manager. ARNULFO Romeo, rehabilitation supervisor T DESK OFFICER T DESK OFFICER * Plan of Care - Mary Meléndez [...] sugar, turn patient, and monitor pain level. T DESK OFFICER T DESK OFFICER * Plan of Care - Marcial Barnes [...] impaired skin integrity will decrease Outcome: Progressing T DESK OFFICER * Hospital Course - Jimenez Henao MD - 12/02/2023 4:50 PM FRONT DESK OFFICER DVT (deep venous thrombosis), hx of PE [...] OT evaluated him and recommended inpatient rehab. [facility] requested PM&R consult prior to discharge. PM&R recommended that patient is discharged to a SCI unit and agreed with [facility] to take. Strongly recommended attempts to manage worsening BLE/Scrotal edema. Patient started on IV diuretic therapy with brisk UOP and slow improvement of BLE edema. He was ultimately discharged to [facility]. Anemia Initial Hgb was stable in the [...] home ARB which had been held at [facility]. Given initiation of diuretic therapy, this continued to be held at discharge. Elevated transaminase level AST 65, ALT 80, new on admission. Unclear etiology. Resolved w/o intervention. T DESK OFFICER T DESK OFFICER T DESK OFFICER T DESK OFFICER T DESK OFFICER T DESK OFFICER T DESK OFFICER T DESK OFFICER T DESK OFFICER T DESK OFFICER T DESK OFFICER T DESK OFFICER T DESK OFFICER T DESK OFFICER T DESK OFFICER T DESK OFFICER T DESK OFFICER T DESK OFFICER T DESK OFFICER T DESK OFFICER T DESK OFFICER * Plan of Care - Mary Meléndez [...] remain free from falls Outcome: Ongoing Goals: T DESK OFFICER * Plan of Care - Marcial Barnes [...] impaired skin integrity will decrease Outcome: Progressing T DESK OFFICER * Initial Assessments - Madison Ma RN - 12/01/2023 3:07 PM CST CM Initial Assessment Interview Note Information Obtained From: Patient Name: and Spouse present at Bedside: Val Evans [phone] (11/30/23 1016) Admission Source: [place] Impression: 73 year old male patient admitted for DVT. Plan Includes: Anticipate patient will discharge to back [place] [facility] [place] when medicallystable. CM placed referral via [facility] to [facility]. CM to follow for d/c planning and referrals as needed. Primary Source of Transportation: Does the patient need discharge transport arranged?: Yes Has discharge transport been arranged?: No (12/01/23 1502) Health Insurance Coverage: [facility] Medicare Prescription Coverage: yes Pharmacy: verified [facility] [address] [place] [id number] [place] [address] [facility] [address] [address] [facility] [id number] Primary Care Provider: Rl Barnett DO Prior [...] needs include: IRF at discharge ([place] [facility] Dialysis: NO Behavioral Health Services: Behavioral Health Services: No (12/01/23 1501) Patient expects to be Discharged to: Acute Rehab, (12/01/23 1501) Additional Information: CM met with patient at bedside to complete initial assessment. Address and phone number verified with face sheet. Patient lives in a private residence with spouse and was at [facility] getting [place]. Patient wishes to return to [facility] at discharge. Denies HHC or DME. Patient's [...] Collaboration with patient, MD, direct care nurse, Size Maker, and other members of the health care team to assure needed interventions completed. 2. Return patient to optimal level of self-care post discharge. 3. Computer Typesetter will follow for Discharge Planning - interventions [...] aftercare plan. Madison Ma RN Case Manager T DESK OFFICER * Plan of Care - Nola Stiles [...] skin integrity will decrease Outcome: Progressing Summary: T DESK OFFICER * Plan of [facility] - Lisa Patel RN - 11/30/2023 8:08 [...] and discharge planning will improve Outcome: Progressing T DESK OFFICER * Initial Assessments - Vita Demarco LCSW - 11/30/2023 11:50 AM FRONT DESK OFFICER Social Work Assessment Clinical Dx:admitted to the hospital 11/29/23 for management of extensive bilateral DVTs. Past Medical History: Date of last inpatient admission: Previous admit date: 11/07/2023 Number of inpatient admissions in past year: 3 Patient Information: Information Obtained From: Patient Name: and Spouse present at Bedside: Val Finneganjacinda [phone] Marital Status: Does Pt have Legal Guardian, Surrogate Decision Maker or Healthcare Agent? 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 Payor Source: Medicare Race: White/ Ethnicity: Non- Sexual Orientation : BIBI Gender Identity: Male Service : None (11/30/23 1016) Current Situation: Current Situation Living Arrangements: Spouse/significant other Type of Residence: Private residence Income: Employed, Longterm/Pension Financial assistance: Unknown Education Level : Advanced College Degree How do you Pay for Medication: Insurance Coverage Current Transportation: Own vehicle What do you do with your Free Time: Enjoys traveling (11/30/23 1016) Legal History: Legal History Legal Information : No legal issues (11/30/23 1016) Support Systems and Spirituality: Support Systems and Spirituality Support System: Spouse, Children Spouse Name/Contact Information: Spouse: Val Evans [phone] Children Name/Contact Information: Son: Marcial Evans [phone] Participation from Patient's Support System: high Do you have a Latter-Day Preference or Affiliation?: Yes Preference/Affiliation : Atheist Are there any Latter-Day Practices that are important to maintain while [...] More than three times a week Attends Latter-Day Services: Never Active Member of Clubs or [...] patient, Hira Evans ( 1950), admitted to [facility] on 11/29/2023 for DVT (deep venous thrombosis) ([facility]) (HCC) [I82.409]. Per H&P patient is is [...] meti with pt and spouse (Val Evans [phone]) at bedside to discuss financial, housing, transportation, [...] including surrogate decision makers, durable Power of Hospital Scientist, and Advanced Directives. Pt has DPOA documents completed and on file: His Spouse Val Evans ([phone]) is Power of Hospital Scientist. No additional SW needs identified at this time. SW remains available to pt and/or family should further needs arise. CM following for discharge planning. GEN Kauffman, POST EXCHANGE MANAGER Inpatient Size Maker 08/0431 [facility] T DESK OFFICER * Plan of Care - Nola Stiles [...] V/s comfort and safety ,pain control Summary: T DESK OFFICER * Plan of Care - Lisa Patel RN - 11/29/2023 10:25 PM FRONT DESK OFFICER Goals: Summary: Problem: Health Behavior: Goal: Understanding [...] Diagnostic test results will improve Outcome: Progressing T DESK OFFICER * Assessment & Plan Note - Errol Escobar MD - 11/29/2023 7:22 PM FRONT DESK OFFICER Associated Problem(s): Prediabetes - Was on mounjaro as outpatient - has required intermittent SSI at [facility] - Diabetic diet, SSI ordered T DESK OFFICER * Assessment & Plan Note - Jimenez Henao MD - 11/29/2023 7:21 PM FRONT DESK OFFICER Associated Problem(s): Scrotal swelling - In setting of presumed DVT - no evidence of infection on exam - Scrotal Sling - Maintain harris catheter - DVT mgt per above - for edema, will continue IV lasix 40 mg BID, monitor electrolytes - at discharge will discharge on PO lasix 40 mg BID T DESK OFFICER T DESK OFFICER T DESK OFFICER T DESK OFFICER * Assessment & Plan Note - Jimenez Henao MD - 11/29/2023 7:20 PM FRONT DESK OFFICER Associated Problem(s): Elevated transaminase level - AST 65, ALT 80, new on arrival- Unclear etiology at this time - possibly from IVC compression/distention in setting of potential thrombi? - Improving - will hold off on further imaging T DESK OFFICER T DESK OFFICER * Assessment & Plan Note - Jimenez Henao MD - 11/29/2023 7:19 PM FRONT DESK OFFICER Associated Problem(s): Hyponatremia Improved. Na low 130s over the past week, has improved with improved oral intake and remains in normal range with initiation of diuretic therapy. - CTM on lasix T DESK OFFICER T DESK OFFICER * Assessment & Plan Note - Nicolas Dobbs MD - 11/29/2023 7:19 PM CSTAssociated Problem(s): Paraspinal hematoma - Occurred on therapeutic anticoagulation in setting of recent lumbar decompression, with subsequent LE paralysis and emergent hematoma evacuation on 11/07 - Directly-admitted from [facility] - PT/OT - Orthopedics following - had sutures removed on 11/30 - note had some drainage from sutures, plan 7-10d course SSTI antibiotics using Bactrim for now - anticoagulation as elsewhere (see DVT ) T DESK OFFICER T DESK OFFICER T DESK OFFICER * Assessment & Plan Note - Errol Escobar MD - 11/29/2023 7:17 PM FRONT DESK OFFICER Associated Problem(s): Anemia - Stable Hgb ~8 - Maintain Hgb > 7 T DESK OFFICER * Assessment & Plan Note - Jimenez Henao MD - 11/29/2023 7:17 PM FRONT DESK OFFICER Associated Problem(s): Hydronephrosis with urinary obstruction due [...] Bactrim to also cover SSTI of back T DESK OFFICER T DESK OFFICER T DESK OFFICER T DESK OFFICER T DESK OFFICER T DESK OFFICER * Assessment & Plan Note - Errol Escobar MD - 11/29/2023 7:16 PM FRONT DESK OFFICER Associated Problem(s): Pulmonary embolism (HCC) - Eval/mgt per above T DESK OFFICER * Assessment & Plan Note - Errol Escobar MD - 11/29/2023 7:16 PM FRONT DESK OFFICER Associated Problem(s): Seizure (HCC) - Patient developed reported seizure on 10/23 during or prior to cardiac arrest with bilateral SDH noted on imaging - placed on keppra through follow-up with NSGY next month T DESK OFFICER * Assessment & Plan Note - Errol Escobar MD - 11/29/2023 7:15 PM FRONT DESK OFFICER Associated Problem(s): Paraplegia (HCC) - Patient with paralysis of LE following recent spinal hematoma s/p emergent evacuation on 11/07 - Ongoing 11/09 strength of LE, sensation intact - Fall precautions T DESK OFFICER T DESK OFFICER * Assessment & Plan Note - Errol Escobar MD - 11/29/2023 7:14 PM FRONT DESK OFFICER Associated Problem(s): Prostate cancer (HCC) - s/p prostatectomy T DESK OFFICER * Assessment & Plan Note - Nicolas Dobbs MD - 11/29/2023 7:14 PM CSTAssociated Problem(s): Lower extremity edema - Eval/mgt per above. NT-proBNP 105. T DESK OFFICER T DESK OFFICER * Assessment & Plan Note - Errol Escobar MD - 11/29/2023 7:14 PM FRONT DESK OFFICER Associated Problem(s): HTN (hypertension) - Cont diltiazem - home ARB has been on hold at [facility] - continue to hold here initially T DESK OFFICER * Assessment & Plan Note - Jimenez Henao MD - 11/29/2023 7:14 PM FRONT DESK OFFICER Associated Problem(s): UTI (urinary tract infection) - Patient diagnosed with UTI in setting of harris catheter on 11/21 with growth of Enterobacter cloacae (S - bactrim, macrobid, cefepime) - he denies symptoms, though was noted to have leukocytosis that has improved - s/p treatment course of bactrim - discussion with urology regarding harris catheter exchange, recommend continuing existing catheteruntil 12/25/23 appointment with urology. T DESK OFFICER T DESK OFFICER T DESK OFFICER * Assessment & Plan Note - Jimenez Henao MD - 11/29/2023 7:12 PM FRONT DESK OFFICER Associated Problem(s): DVT (deep venous thrombosis) (CMS/HCC) [...] repletion, will continue lasix 40 IV BID T DESK OFFICER T DESK OFFICER T DESK OFFICER T DESK OFFICER T DESK OFFICER T DESK OFFICER T DESK OFFICER T DESK OFFICER T DESK OFFICER T DESK OFFICER T DESK OFFICER T DESK OFFICER * Plan of Care - Daisy Barnes [...] and injury in home environment Outcome: Progressing T DESK OFFICER * ED Pre-Arrival Note - Luana Cabrera RN - 11/28/2023 10:54 AM FRONT DESK OFFICER Pre-Arrival Note Patient being sent to ED from [facility] for BLE DVTs, has BLE edema. Hx IVC filter. Coming to be seen by vascular. Coming via ground transport. Luana Cabrera RN T DESK OFFICER documented in this encounter Plan of Treatment [...] Diagnosis Comments EGFR Routine 12/09/2023 7:32 PM FRONT DESK OFFICER DIFFERENTIAL AUTO Routine 12/09/2023 7:3 2 PM FRONT DESK OFFICER CBC WITH AUTO DIFFERENTIAL Routine 12/09/2023 7:32 PM FRONT DESK OFFICER PHOSPHORUS Routine 12/09/2023 7:32 PM FRONT DESK OFFICER MAGNESIUM Routine 12/09/2023 7:32 PM FRONT DESK OFFICER HEPATIC FUNCTION PANEL Routine 12/09/2023 7:32 PM FRONT DESK OFFICER BASIC METABOLIC PANEL Routine 12/09/2023 7:32 PM FRONT DESK OFFICER EGFR Routine 12/08/2023 9:04 PM FRONT DESK OFFICER DIFFERENTIAL AUTO Routine 12/08/2023 9:0 4 PM FRONT DESK OFFICER CBC WITH AUTO DIFFERENTIAL Routine 12/08/2023 9:04 PM FRONT DESK OFFICER TYPE AND SCREEN Timed 12/08/2023 9:04 PM FRONT DESK OFFICER PHOSPHORUS Routine 12/08/2023 9:04 PM FRONT DESK OFFICER MAGNESIUM Routine 12/08/2023 9:04 PM FRONT DESK OFFICER HEPATIC FUNCTION PANEL Routine 12/08/2023 9:04 PM FRONT DESK OFFICER BASIC METABOLIC PANEL Routine 12/08/2023 9:04 PM FRONT DESK OFFICER EGFR Routine 12/08/2023 4:08 AM FRONT DESK OFFICER DIFFERENTIAL AUTO Routine 12/08/2023 4:0 8 AM FRONT DESK OFFICER CBC WITH AUTO DIFFERENTIAL Routine 12/08/2023 4:08 AM FRONT DESK OFFICER PHOSPHORUS Routine 12/08/2023 4:08 AM FRONT DESK OFFICER MAGNESIUM Routine 12/08/2023 4:08 AM FRONT DESK OFFICER HEPATIC FUNCTION PANEL Routine 12/08/2023 4:08 AM FRONT DESK OFFICER BASIC METABOLIC PANEL Routine 12/08/2023 4:08 AM FRONT DESK OFFICER EGFR Routine 12/07/2023 1:11 AM FRONT DESK OFFICER DIFFERENTIAL AUTO Routine 12/07/2023 1:1 1 AM FRONT DESK OFFICER HEPARIN ANTI FACTOR XA ACTIVITY Timed 12/07/2023 1:11 AM FRONT DESK OFFICER CBC WITH AUTO DIFFERENTIAL Routine 12/07/2023 1:11 AM FRONT DESK OFFICER PHOSPHORUS Routine 12/07/2023 1:11 AM FRONT DESK OFFICER MAGNESIUM Routine 12/07/2023 1:11 AM FRONT DESK OFFICER HEPATIC FUNCTION PANEL Routine 12/07/2023 1:11 AM FRONT DESK OFFICER BASIC METABOLIC PANEL Routine 12/07/2023 1:11 AM FRONT DESK OFFICER EGFR Routine 12/05/2023 10:10 PM FRONT DESK OFFICER DIFFERENTIAL AUTO Routine 12/05/2023 10: 10 PM FRONT DESK OFFICER CBC WITH AUTO DIFFERENTIAL Routine 12/05/2023 10:10 PM FRONT DESK OFFICER TYPE AND SCREEN Timed 12/05/2023 10:10 PM FRONT DESK OFFICER PHOSPHORUS Routine 12/05/2023 10:10 PM FRONT DESK OFFICER MAGNESIUM Routine 12/05/2023 10:10 PM FRONT DESK OFFICER HEPATIC FUNCTION PANEL Routine 12/05/2023 10:10 PM FRONT DESK OFFICER BASIC METABOLIC PANEL Routine 12/05/2023 10:10 PM FRONT DESK OFFICER POCT GLUCOSE DEVICE Routine 12/05/2023 1 2:12 PM FRONT DESK OFFICER POCT GLUCOSE DEVICE Routine 12/05/2023 7 :59 AM FRONT DESK OFFICER APTT Timed 12/05/2023 5:06 AM FRONT DESK OFFICER EGFR Routine 12/04/2023 11:43 PM FRONT DESK OFFICER DIFFERENTIAL AUTO Routine 12/04/2023 11: 43 PM FRONT DESK OFFICER CBC WITH AUTO DIFFERENTIAL Routine 12/04/2023 11:43 PM FRONT DESK OFFICER PHOSPHORUS Routine 12/04/2023 11:43 PM FRONT DESK OFFICER MAGNESIUM Routine 12/04/2023 11:43 PM FRONT DESK OFFICER HEPATIC FUNCTION PANEL Routine 12/04/2023 11:43 PM FRONT DESK OFFICER BASIC METABOLIC PANEL Routine 12/04/2023 11:43 PM FRONT DESK OFFICER POCT GLUCOSE DEVICE Routine 12/04/2023 8 :44 PM FRONT DESK OFFICER POCT GLUCOSE DEVICE Routine 12/04/2023 4 :25 PM FRONT DESK OFFICER POCT GLUCOSE DEVICE Routine 12/04/2023 1 1:36 AM FRONT DESK OFFICER POCT GLUCOSE DEVICE Routine 12/04/2023 7 :24 AM FRONT DESK OFFICER EGFR Routine 12/03/2023 10:04 PM FRONT DESK OFFICER DIFFERENTIAL AUTO Routine 12/03/2023 10: 04 PM FRONT DESK OFFICER CBC WITH AUTO DIFFERENTIAL Routine 12/03/2023 10:04 PM FRONT DESK OFFICER APTT STAT 12/03/2023 10:04 PM FRONT DESK OFFICER PHOSPHORUS Routine 12/03/2023 10:04 PM FRONT DESK OFFICER MAGNESIUM Routine 12/03/2023 10:04 PM FRONT DESK OFFICER HEPATIC FUNCTION PANEL Routine 12/03/2023 10:04 PM FRONT DESK OFFICER BASIC METABOLIC PANEL Routine 12/03/2023 10:04 PM FRONT DESK OFFICER POCT GLUCOSE DEVICE Routine 12/03/2023 8 :07 PM FRONT DESK OFFICER POCT GLUCOSE DEVICE Routine 12/03/2023 4 :37 PM FRONT DESK OFFICER APTT STAT 12/03/2023 1:42 PM FRONT DESK OFFICER POCT GLUCOSE DEVICE Routine 12/03/2023 1 1:21 AM FRONT DESK OFFICER POCT GLUCOSE DEVICE Routine 12/03/2023 7 :36 AM FRONT DESK OFFICER APTT STAT 12/03/2023 5:38 AM FRONT DESK OFFICER EGFR Routine 12/02/2023 10:07 PM FRONT DESK OFFICER DIFFERENTIAL AUTO Routine 12/02/2023 10: 07 PM FRONT DESK OFFICER EXTRA SLIDE PREPARATION Routine 12/02/2023 10:07 PM FRONT DESK OFFICER CBC WITH AUTO DIFFERENTIAL Routine 12/02/2023 10:07 PM FRONT DESK OFFICER APTT STAT 12/02/2023 10:07 PM FRONT DESK OFFICER TYPE AND SCREEN Timed 12/02/2023 10:07 PM FRONT DESK OFFICER DIRECT ANTIGLOBULIN TEST Timed 12/02/2023 10:07 PM FRONT DESK OFFICER PHOSPHORUS Routine 12/02/2023 10:07 PM FRONT DESK OFFICER MAGNESIUM Routine 12/02/2023 10:07 PM FRONT DESK OFFICER LACTATE DEHYDROGENASE Routine 12/02/2023 10:07 PM FRONT DESK OFFICER HAPTOGLOBIN Routine 12/02/2023 10:07 PM FRONT DESK OFFICER HEPATIC FUNCTION PANEL Routine 12/02/2023 10:07 PM FRONT DESK OFFICER BASIC METABOLIC PANEL Routine 12/02/2023 10:07 PM FRONT DESK OFFICER POCT GLUCOSE DEVICE Routine 12/02/2023 9 :54 PM FRONT DESK OFFICER POCT GLUCOSE DEVICE Routine 12/02/2023 4 :13 PM FRONT DESK OFFICER TRANSFUSE RED BLOOD CELLS Timed 12/02/2023 2:45 PM FRONT DESK OFFICER POCT GLUCOSE DEVICE Routine 12/02/2023 1 1:56 AM FRONT DESK OFFICER PREPARE RBC Timed 12/02/2023 11:12 AM FRONT DESK OFFICER POCT GLUCOSE DEVICE Routine 12/02/2023 7 :28 AM FRONT DESK OFFICER APTT STAT 12/02/2023 7:01 AM FRONT DESK OFFICER EGFR Routine 12/02/2023 1:15 AM FRONT DESK OFFICER DIFFERENTIAL AUTO Routine 12/02/2023 1:1 5 AM FRONT DESK OFFICER CBC WITH AUTO DIFFERENTIAL Routine 12/02/2023 1:15 AM FRONT DESK OFFICER APTT STAT 12/02/2023 1:15 AM FRONT DESK OFFICER PHOSPHORUS Routine 12/02/2023 1:15 AM FRONT DESK OFFICER MAGNESIUM Routine 12/02/2023 1:15 AM FRONT DESK OFFICER HEPATIC FUNCTION PANEL Routine 12/02/2023 1:15 AM FRONT DESK OFFICER BASIC METABOLIC PANEL Routine 12/02/2023 1:15 AM FRONT DESK OFFICER POCT GLUCOSE DEVICE Routine 12/01/2023 8 :42 PM FRONT DESK OFFICER APTT Timed 12/01/2023 6:00 PM FRONT DESK OFFICER POCT GLUCOSE DEVICE Routine 12/01/2023 5 :09 PM FRONT DESK OFFICER CBC WITHOUT DIFFERENTIAL Routine 12/01/2023 12:35 PM FRONT DESK OFFICER POCT GLUCOSE DEVICE Routine 12/01/2023 1 2:23 PM FRONT DESK OFFICER POCT GLUCOSE DEVICE Routine 12/01/2023 1 2:21 PM FRONT DESK OFFICER APTT STAT 12/01/2023 12:15 PM FRONT DESK OFFICER EGFR Timed 12/01/2023 8:00 AM FRONT DESK OFFICER COMPREHENSIVE METABOLIC PANEL Timed 12/01/2023 8:00 AM FRONT DESK OFFICER POCT GLUCOSE DEVICE Routine 12/01/2023 7 :14 AM FRONT DESK OFFICER APTT STAT 12/01/2023 4:40 AM FRONT DESK OFFICER POCT GLUCOSE DEVICE Routine 11/30/2023 8 :46 PM FRONT DESK OFFICER APTT STAT 11/30/2023 8:44 PM FRONT DESK OFFICER POCT GLUCOSE DEVICE Routine 11/30/2023 4 :22 PM FRONT DESK OFFICER URINALYSIS AND REFLEX TO MICROSCOPIC AND CULTURE Routine 11/30/2023 2:48 PM FRONT DESK OFFICER URINALYSIS, MICROSCOPIC ONLY Routine 11/30/2023 2:48 PM FRONT DESK OFFICER URINE CULTURE Routine 11/30/2023 2:48 PM FRONT DESK OFFICER POCT GLUCOSE DEVICE Routine 11/30/2023 1 1:59 AM FRONT DESK OFFICER APTT STAT 11/30/2023 11:16 AM FRONT DESK OFFICER US VEIN DUPLEX LOWER EXTREMITY BILATERAL COMPLETE ED Urgent/IP Urgent 11/30/2023 8:03 AM FRONT DESK OFFICER POCT GLUCOSE DEVICE Routine 11/30/2023 7 :51 [address] FRONT DESK [address] ABDOMEN PELVIS W CONTRAST IP Routine 11/30/2023 1:49 AM FRONT DESK OFFICER EGFR Routine 11/30/2023 12:12 AM FRONT DESK OFFICER DIFFERENTIAL AUTO Routine 11/30/2023 12: 12 AM FRONT DESK OFFICER PRO B-TYPE NATRIURETIC PEPTIDE Routine 11/30/2023 12:12 AM FRONT DESK OFFICER CALCIUM, IONIZED Routine 11/30/2023 12:1 2 AM FRONT DESK OFFICER IRON PROFILE W/ IBC Routine 11/30/2023 1 2:12 AM FRONT DESK OFFICER CBC WITH AUTO DIFFERENTIAL Routine 11/30/2023 12:12 AM FRONT DESK OFFICER PROTIME-INR Routine 11/30/2023 12:12 AM FRONT DESK OFFICER TYPE AND SCREEN Timed 11/30/2023 12:12 AM FRONT DESK OFFICER PHOSPHORUS Routine 11/30/2023 12:12 AM FRONT DESK OFFICER OSMOLALITY, BLOOD Routine 11/30/2023 12: 12 AM FRONT DESK OFFICER MAGNESIUM Routine 11/30/2023 12:12 AM FRONT DESK OFFICER FERRITIN Routine 11/30/2023 12:12 AM FRONT DESK OFFICER HEPATIC FUNCTION PANEL Routine 11/30/2023 12:12 AM FRONT DESK OFFICER BASIC METABOLIC PANEL Routine 11/30/2023 12:12 AM FRONT DESK OFFICER URINALYSIS AND REFLEX TO MICROSCOPIC Routine 11/29/2023 10:42 PM FRONT DESK OFFICER SODIUM, URINE, RANDOM Routine 11/29/2023 10:42 PM FRONT DESK OFFICER OSMOLALITY, URINE Routine 11/29/2023 10: 42 PM FRONT DESK OFFICER CREATININE, URINE, RANDOM Routine 11/29/2023 10:42 PM FRONT DESK OFFICER URINALYSIS, MICROSCOPIC ONLY Routine 11/29/2023 10:42 PM FRONT DESK OFFICER POCT GLUCOSE DEVICE Routine 11/29/2023 7 :56 PM FRONT DESK OFFICER POCT GLUCOSE DEVICE Routine 11/29/2023 5:27 PM FRONT DESK OFFICER documented in this encounter Results * Magnesium (04/11/2024 10:31 AM CDT) Pathologist [facility] Magnesium 2.2 1.4 - 2.5 mg/dL Comment:Testing performed by : [facility], [address] [place] [phone] Blood 04/11/2024 10:3 1 AM CDT 04/11/2024 10:33 AM CDT us Jimenez Henao MD LAB BLOOD ORDERABLES Final Result [facility] [place] [address] * eGFR (12/09/2023 7:32 PM FRONT DESK OFFICER) eGFR >90 >=60 mL/min/1. 73 m2 [facility] [...] last reviewed 2021. Blood 12/09/2023 7:32 PM FRONT DESK OFFICER 12/09/2023 8:36 PM FRONT DESK OFFICER us Nicolas Dobbs MD LAB BLOOD ORDERABLE S Final Result [facility] [place] [address] * Differential, auto (12/09/2023 7:32 PM FRONT DESK OFFICER) Neutrophil abs 3.8 1.5 - 6.5 K/cumm [facility] Imm gran abs 0.1 0.0 - 0.1 K/cumm [facility] Lymphocyte abs 1.4 0.8 - 3.3 K/cumm [facility] Monocyte abs 0.4 0.2 - 0.8 K/cumm [facility] Eosinophil abs 0.2 0.0 - 0.5 K/cumm [facility] Basophil abs 0.0 0.0 - 0.1 K/cumm [facility] Neutrophil pct 65.3 % [facility] Comment: Interpretive Data Percent cell count reference ranges are not reported, since discordance with absolute values may lead to misinterpretation of CBC data. Current Interpretive Data was last revised on 2018. Imm gran pct 0.9 % [facility] Comment: Interpretive Data Percent cell count reference ranges are not reported, since discordance with absolute values may lead to misinterpretation of CBC data. Current Interpretive Data was last revised on 2018. Lymphocyte pct 23.6 % [facility] Comment: Interpretive Data Percent cell count reference ranges are not reported, since discordance with absolute values may lead to misinterpretation of CBC data. Current Interpretive Data was last revised on 2018. Monocyte pct 6.5 % [facility] Comment: Interpretive Data Percent cell count reference ranges are not reported, since discordance with absolute values may lead to misinterpretation of CBC data. Current Interpretive Data was last revised on 2018. Eosinophil pct 3.4 % [facility] Comment: Interpretive Data Percent cell count reference ranges are not reported, since discordance with absolute values may lead to misinterpretation of CBC data. Current Interpretive Data was last revised on 2018. Basophil pct 0.3 % [facility] Comment: Interpretive Data Percent cell count reference ranges are not reported, since discordance with absolute values may lead to misinterpretation of CBC data. Current Interpretive Data was last revised on 2018. Blood 12/09/2023 7:32 PM FRONT DESK OFFICER 12/09/2023 8:36 PM FRONT DESK OFFICER us Nicolas Dobbs MD LAB BLOOD ORDERABLE S Final Result [facility] [place] [address] * (ABNORMAL) CBC with auto differential (12/09/2023 7:32 PM FRONT DESK OFFICER) Pathologist [facility] WBC 5.8 3.8 - 9.9 K/cumm [facility] Hgb 9.0(L) 13.0 - 17.5 g/dL [facility] Hct 28.6(L) 38.9 - 50.3 % [facility] Plt 320 150 - 400 K/cumm [facility] MPV 10.4 9.1 - 12.3 fL [facility] RBC 2.98(L) 4.30 - 5.80 M/cumm [facility] MCV 96.0 81.3 - 96.4 fL [facility] MCH 30.2 27.1 - 33.3 pg [facility] MCHC 31.5(L) 32.3 - 35.7 g/dL [facility] RDW CV 16.0(H) 11.1 - 14.9 % [facility] RDW SD 57.4(H) 35.7 - 48.1 fL [facility] NRBC abs 0.00 0.00 - 0.01 K/cumm [facility] Blood 12/09/2023 7:32 PM FRONT DESK OFFICER 12/09/2023 8:36 PM FRONT DESK OFFICER Nicolas Dobbs MD LAB BLOOD ORDERABLE S Final Result Performing Organization Address City/[facility] Co de Phone Number [facility] Department [place] [address] * Phosphorus (12/09/2023 7:32 PM FRONT DESK OFFICER) Phosphorus, pl 3.5 2.3 - 4.5 mg/dL [facility] Blood 12/09/2023 7:32 PM FRONT DESK OFFICER 12/09/2023 8:36 PM FRONT DESK OFFICER Nicolas Dobbs MD LAB BLOOD ORDERABLE S Final Result Performing Organization Address City/[facility] Co de Phone Number [facility] Department [place] [employer] [place] [address] * Magnesium (12/09/2023 7:32 PM FRONT DESK OFFICER) Magnesium 1.7 1.4 - 2.5 mg/dL [facility] Blood 12/09/2023 7:32 PM FRONT DESK OFFICER 12/09/2023 8:36 PM FRONT DESK OFFICER Nicolas Dobbs MD LAB BLOOD ORDERABLE S Final Result Performing Organization Address City/[facility] Co de Phone Number [facility] Department [place] [address] * (ABNORMAL) Hepatic function panel (12/09/2023 7:32 PM FRONT DESK OFFICER) [facility] Bilirubin, total 0.2 0.1 - 1.2 mg/dL [facility] Bilirubin, direct <0.2 0.1 - 0.3 mg/dL [facility] Protein, pl 6.3(L) 6.5 - 8.5 g/dL [facility] Albumin 3.0(L) 3.5 - 5.0 g/dL [facility] Alk phos 138(H) 40 - 130 Units/L [facility] ALT 34 7 - 55 Units/L [facility] AST 27 10 - 50 Units/L [facility] Blood 12/09/2023 7:32 PM FRONT DESK OFFICER 12/09/2023 8:36 PM FRONT DESK OFFICER Nicolas Dobbs MD LAB BLOOD ORDERABLE S Final Result [facility] Department [place] [address] * (ABNORMAL) Basic metabolic panel (12/09/2023 7:32 PM FRONT DESK OFFICER) [facility] Sodium 137 135 - 145 mmol/L [facility] Potassium, pl 3.7 3.3 - 4.9 mmol/L [facility] Chloride 102 97 - 110 mmol/L [facility] CO2 26 22 - 32 mmol/L [facility] Anion gap 9 2 - 15 mmol/L [facility] BUN 22 6 - 25 mg/dL [facility] Creatinine 0.77(L) 0.80 - 1.30 mg/dL [facility] Glucose 147 70 - 199 mg/dL [facility] [...] Calcium 8.6 8.5 - 10.3 mg/dL [facility] Blood 12/09/2023 7:32 PM FRONT DESK OFFICER 12/09/2023 8:36 PM FRONT DESK OFFICER us Nicolas Dobbs MD LAB BLOOD ORDERABLE S Final Result [facility] [place] [address] * eGFR (12/08/2023 9:04 PM FRONT DESK OFFICER) eGFR >90 >=60 mL/min/1. 73 m2 [facility] Comment: Interpretive Data Reference Interval Normal ?>/= [...] last reviewed 2021. Blood 12/08/2023 9:04 PM FRONT DESK OFFICER 12/08/2023 9:53 PM FRONT DESK OFFICER us Nicolas Dobbs MD LAB BLOOD ORDERABLE S Final Result [facility] [place] [address] * Differential, auto (12/08/2023 9:04 PM FRONT DESK OFFICER) Neutrophil abs 3.5 1.5 - 6.5 K/cumm [facility] Imm gran abs 0.1 0.0 - 0.1 K/cumm [facility] Lymphocyte abs 1.4 0.8 - 3.3 K/cumm [facility] Monocyte abs 0.5 0.2 - 0.8 K/cumm [facility] Eosinophil abs 0.2 0.0 - 0.5 K/cumm [facility] Basophil abs 0.0 0.0 - 0.1 K/cumm [facility] Neutrophil pct 62.2 % [facility] Comment: Interpretive Data Percent cell count reference ranges are not reported, since discordance with absolute values may lead to misinterpretation of CBC data. Current Interpretive Data was last revised on 2018. Imm gran pct 0.9 % [facility] Comment: Interpretive Data Percent cell count reference ranges are not reported, since discordance with absolute values may lead to misinterpretation of CBC data. Current Interpretive Data was last revised on 2018. Lymphocyte pct 25.1 % [facility] Comment: Interpretive Data Percent cell count reference ranges are not reported, since discordance with absolute values may lead to misinterpretation of CBC data. Current Interpretive Data was last revised on 2018. Monocyte pct 8.0 % [facility] Comment: Interpretive Data Percent cell count reference ranges are not reported, since discordance with absolute values may lead to misinterpretation of CBC data. Current Interpretive Data was last revised on 2018. Eosinophil pct 3.6 % [facility] Comment: Interpretive Data Percent cell count reference ranges are not reported, since discordance with absolute values may lead to misinterpretation of CBC data. Current Interpretive Data was last revised on 2018. Basophil pct 0.2 % [facility] Comment: Interpretive Data Percent cell count reference ranges are not reported, since discordance with absolute values may lead to misinterpretation of CBC data. Current Interpretive Data was last revised on 2018. Blood 12/08/2023 9:04 PM FRONT DESK OFFICER 12/08/2023 9:53 PM FRONT DESK OFFICER Nicolas Dobbs MD LAB BLOOD ORDERABLE S Final Result Performing Organization Address [facility] Co de Phone Number [facility] [place] [employer] [place] [address] * Type and screen (12/08/2023 9:04 PM FRONT DESK OFFICER) Pathologist [facility] ABO Rh O Positive Jigna, indirect Negative [facility] Blood 12/08/2023 9:04 PM FRONT DESK OFFICER 12/08/2023 9:48 PM FRONT DESK OFFICER Narrative [facility] - 12/08/2023 10:32 PM FRONT DESK OFFICER Has the patient had Daratumumab or Isatuximab in the past 6 months?->Unknown Nicolas Dobbs MD LAB BLOOD BANK TEST ORDERABLES Final Result Performing Organization Address [facility] Co de Phone Number [facility] [place] [address] * (ABNORMAL) CBC with auto differential (12/08/2023 9:04 PM FRONT DESK OFFICER) Pathologist [facility] WBC 5.6 3.8 - 9.9 K/cumm [facility] Hgb 9.3(L) 13.0 - 17.5 g/dL [facility] Hct 29.0(L) 38.9 - 50.3 % [facility] Plt 299 150 - 400 K/cumm [facility] MPV 10.0 9.1 - 12.3 fL [facility] RBC 3.10(L) 4.30 - 5.80 M/cumm [facility] MCV 93.5 81.3 - 96.4 fL [facility] MCH 30.0 27.1 - 33.3 pg [facility] MCHC 32.1(L) 32.3 - 35.7 g/dL [facility] RDW CV 16.4(H) 11.1 - 14.9 % [facility] RDW SD 56.7(H) 35.7 - 48.1 fL [facility] NRBC abs 0.00 0.00 - 0.01 K/cumm [facility] Blood 12/08/2023 9:04 PM FRONT DESK OFFICER 12/08/2023 9:53 PM FRONT DESK OFFICER Nicolas Dobbs MD LAB BLOOD ORDERABLE S Final Result Performing Organization Address City/[facility]/ZIP Co de Phone Number [facility] [place] [address] * Phosphorus (12/08/2023 9:04 PM FRONT DESK OFFICER) Phosphorus, pl 3.7 2.3 - 4.5 mg/dL [facility] Blood 12/08/2023 9:04 PM FRONT DESK OFFICER 12/08/2023 9:53 PM FRONT DESK OFFICER Nicolas Dobbs MD LAB BLOOD ORDERABLE S Final Result Performing Organization Address City/[facility] Co de Phone Number [facility] Department [place] [address] * Magnesium (12/08/2023 9:04 PM FRONT DESK OFFICER) Magnesium 1.9 1.4 - 2.5 mg/dL [facility] Blood 12/08/2023 9:04 PM FRONT DESK OFFICER 12/08/2023 9:53 PM FRONT DESK OFFICER Nicolas Dobbs MD LAB BLOOD ORDERABLE S Final Result Performing Organization Address City/[facility]/ZIP Co de Phone Number [facility] [place] [address] * (ABNORMAL) Hepatic function panel (12/08/2023 9:04 PM FRONT DESK OFFICER) [facility] Bilirubin, total 0.2 0.1 - 1.2 mg/dL [facility] Bilirubin, direct <0.2 0.1 - 0.3 mg/dL [facility] Protein, pl 6.4(L) 6.5 - 8.5 g/dL [facility] Albumin 3.1(L) 3.5 - 5.0 g/dL [facility] Alk phos 138(H) 40 - 130 Units/L [facility] ALT 36 7 - 55 Units/L [facility] AST 42 10 - 50 Units/L [facility] Comment:Hemolyzed; result ma y be falsely elevated Blood 12/08/2023 9:04 PM FRONT DESK OFFICER 12/08/2023 9:53 PM FRONT DESK OFFICER Nioclas Dobbs MD LAB BLOOD ORDERABLE S Final Result [facility] [place] [address] * Basic metabolic panel (12/08/2023 9:04 PM FRONT DESK OFFICER) [facility] Sodium 137 135 - 145 mmol/L [facility] Potassium, pl 4.6 3.3 - 4.9 mmol/L [facility] Comment:Hemolyzed; Potassium value may be falsely elevated by as much as 0.3-0.5 mmol/L. Suggest redraw and reanalysis. Chloride 103 97 - 110 mmol/L [facility] CO2 25 22 - 32 mmol/L [facility] Anion gap 9 2 - 15 mmol/L [facility] BUN 21 6 - 25 mg/dL [facility] Creatinine 0.80 0.80 - 1.30 mg/dL [facility] Glucose 105 70 - 199 mg/dL [facility] [...] Calcium 9.0 8.5 - 10.3 mg/dL [facility] Blood 12/08/2023 9:04 PM FRONT DESK OFFICER 12/08/2023 9:53 PM FRONT DESK OFFICER us Nicolas Dobbs MD LAB BLOOD ORDERABLE S Final Result [facility] [place] [address] * eGFR (12/08/2023 4:08 AM FRONT DESK OFFICER) eGFR >90 >=60 mL/min/1. 73 m2 [facility] Comment: Interpretive Data Reference Interval [...] last reviewed 2021. Blood 12/08/2023 4:08 AM FRONT DESK OFFICER 12/08/2023 4:31 AM FRONT DESK OFFICER us Nicolas Dobbs MD LAB BLOOD ORDERABLE S Final Result [facility] [place] [address] * Differential, auto (12/08/2023 4:08 AM FRONT DESK OFFICER) Neutrophil abs 2.7 1.5 - 6.5 K/cumm [facility] Imm gran abs 0.1 0.0 - 0.1 K/cumm [facility] Lymphocyte abs 1.5 0.8 - 3.3 K/cumm [facility] Monocyte abs 0.5 0.2 - 0.8 K/cumm [facility] Eosinophil abs 0.3 0.0 - 0.5 K/cumm [facility] Basophil abs 0.0 0.0 - 0.1 K/cumm [facility] Neutrophil pct 53.6 % [facility] Comment: Interpretive Data Percent cell count reference ranges are not reported, since discordance with absolute values may lead to misinterpretation of CBC data. Current Interpretive Data was last revised on 2018. Imm gran pct 1.2 % [facility] Comment: Interpretive Data Percent cell count reference ranges are not reported, since discordance with absolute values may lead to misinterpretation of CBC data. Current Interpretive Data was last revised on 2018. Lymphocyte pct 29.3 % [facility] Comment: Interpretive Data Percent cell count reference ranges are not reported, since discordance with absolute values may lead to misinterpretation of CBC data. Current Interpretive Data was last revised on 2018. Monocyte pct 9.6 % [facility] Comment: Interpretive Data Percent cell count reference ranges are not reported, since discordance with absolute values may lead to misinterpretation of CBC data. Current Interpretive Data was last revised on 2018. Eosinophil pct 5.7 % [facility] Comment: Interpretive Data Percent cell count reference ranges are not reported, since discordance with absolute values may lead to misinterpretation of CBC data. Current Interpretive Data was last revised on 2018. Basophil pct 0.6 % [facility] Comment: Interpretive Data Percent cell count reference ranges are not reported, since discordance with absolute values may lead to misinterpretation of CBC data. Current Interpretive Data was last revised on 2018. Blood 12/08/2023 4:08 AM FRONT DESK OFFICER 12/08/2023 4:31 AM FRONT DESK OFFICER us Nicolas Dobbs MD LAB BLOOD ORDERABLE S Final Result [facility] [place] [address] * (ABNORMAL) CBC with auto differential (12/08/2023 4:08 AM FRONT DESK OFFICER) WBC 5.1 3.8 - 9.9 K/cumm [facility] Hgb 8.6(L) 13.0 - 17.5 g/dL [facility] Hct 26.6(L) 38.9 - 50.3 % [facility] Plt 286 150 - 400 K/cumm [facility] MPV 9.7 9.1 - 12.3 fL [facility] RBC 2.85(L) 4.30 - 5.80 M/cumm [facility] MCV 93.3 81.3 - 96.4 fL [facility] MCH 30.2 27.1 - 33.3 pg [facility] MCHC 32.3 32.3 - 35.7 g/dL [facility] RDW CV 16.2(H) 11.1 - 14.9 % [facility] RDW SD 55.8(H) 35.7 - 48.1 fL [facility] NRBC abs 0.00 0.00 - 0.01 K/cumm [facility] Blood 12/08/2023 4:08 AM FRONT DESK OFFICER 12/08/2023 4:31 AM FRONT DESK OFFICER Nicolas Dobbs MD LAB BLOOD ORDERABLE S Final Result Performing Organization Address [facility] [place] [address] * Phosphorus (12/08/2023 4:08 AM FRONT DESK OFFICER) Phosphorus, pl 3.5 2.3 - 4.5 mg/dL [facility] Blood 12/08/2023 4:08 AM FRONT DESK OFFICER 12/08/2023 4:31 AM FRONT DESK OFFICER Nicolas Dobbs MD LAB BLOOD ORDERABLE S Final Result Performing Organization Address [facility] de Phone Number [facility] [place] [address] * Magnesium (12/08/2023 4:08 AM FRONT DESK OFFICER) Magnesium 1.9 1.4 - 2.5 mg/dL [facility] Blood 12/08/2023 4:08 AM FRONT DESK OFFICER 12/08/2023 4:31 AM FRONT DESK OFFICER Nicolas Dobbs MD LAB BLOOD ORDERABLE S Final Result Performing Organization Address [facility] [place] [address] * (ABNORMAL) Hepatic function panel (12/08/2023 4:08 AM FRONT DESK OFFICER) Bilirubin, total 0.2 0.1 - 1.2 mg/dL [facility] Bilirubin, direct <0.2 0.1 - 0.3 mg/dL [facility] Protein, pl 5.9(L) 6.5 - 8.5 g/dL [facility] Albumin 2.8(L) 3.5 - 5.0 g/dL [facility] Alk phos 131(H) 40 - 130 Units/L [facility] ALT 32 7 - 55 Units/L [facility] AST 24 10 - 50 Units/L [facility] Blood 12/08/2023 4:08 AM FRONT DESK OFFICER 12/08/2023 4:31 AM FRONT DESK OFFICER Nicolas Dobbs MD LAB BLOOD ORDERABLE S Final Result Performing Organization Address City/[facility]/ZIP Co de Phone Number [facility] [place] [address] * Basic metabolic panel (12/08/2023 4:08 AM FRONT DESK OFFICER) Pathologist [facility] Sodium 139 135 - 145 mmol/L [facility] Potassium, pl 3.9 3.3 - 4.9 mmol/L [facility] Chloride 106 97 - 110 mmol/L [facility] CO2 24 22 - 32 mmol/L [facility] Anion gap 9 2 - 15 mmol/L [facility] BUN 19 6 - 25 mg/dL [facility] Creatinine 0.83 0.80 - 1.30 mg/dL [facility] Glucose 93 70 - 199 mg/dL [facility] [...] 2022. Calcium 8.8 8.5 - 10.3 mg/dL [facility] Blood 12/08/2023 4:08 AM FRONT DESK OFFICER 12/08/2023 4:31 AM FRONT DESK OFFICER Nicolas Dobbs MD LAB BLOOD ORDERABLE S Final Result Performing Organization Address City/[facility]/ZIP Co de Phone Number [facility] [place] [address] * Differential, auto (12/07/2023 1:11 AM FRONT DESK OFFICER) Neutrophil abs 2.8 1.5 - 6.5 K/cumm [facility] Imm gran abs 0.1 0.0 - 0.1 K/cumm [facility] Lymphocyte abs 1.6 0.8 - 3.3 K/cumm [facility] Monocyte abs 0.4 0.2 - 0.8 K/cumm [facility] Eosinophil abs 0.3 0.0 - 0.5 K/cumm [facility] Basophil abs 0.0 0.0 - 0.1 K/cumm [facility] Neutrophil pct 54.0 % [facility] Comment: Interpretive Data Percent cell count reference ranges are not reported, since discordance with absolute values may lead to misinterpretation of CBC data. Current Interpretive Data was last revised on 2018. Imm gran pct 1.7 % [facility] Comment: Interpretive Data Percent cell count reference ranges are not reported, since discordance with absolute values may lead to misinterpretation of CBC data. Current Interpretive Data was last revised on 2018. Lymphocyte pct 30.8 % [facility] Comment: Interpretive Data Percent cell count reference ranges are not reported, since discordance with absolute values may lead to misinterpretation of CBC data. Current Interpretive Data was last revised on 2018. Monocyte pct 7.6 % [facility] Comment: Interpretive Data Percent cell count reference ranges are not reported, since discordance with absolute values may lead to misinterpretation of CBC data. Current Interpretive Data was last revised on 2018. Eosinophil pct 5.5 % [facility] Comment: Interpretive Data Percent cell count reference ranges are not reported, since discordance with absolute values may lead to misinterpretation of CBC data. Current Interpretive Data was last revised on 2018. Basophil pct 0.4 % [facility] Comment: Interpretive Data Percent cell count reference ranges are not reported, since discordance with absolute values may lead to misinterpretation of CBC data. Current Interpretive Data was last revised on 2018. Blood 12/07/2023 1:11 AM FRONT DESK OFFICER 12/07/2023 2:04 AM FRONT DESK OFFICER us Nicolas Dobbs MD LAB BLOOD ORDERABLE S Final Result Performing Organization Address [facility] Co tx Phone Number [facility] [place] [address] * eGFR (12/07/2023 1:11 AM FRONT DESK OFFICER) eGFR 75 >=60 mL/min/1. 73 m2 [facility] Comment: Interpretive Data Reference Interval [...] last reviewed 2021. Blood 12/07/2023 1:11 AM FRONT DESK OFFICER 12/07/2023 1:30 AM FRONT DESK OFFICER Nicolas Dobbs MD LAB BLOOD ORDERABLE S Final Result Performing Organization Address City/State/[facility] Co de Phone Number [facility] [place] [address] * Heparin anti factor Xa activity (12/07/2023 1:11 AM FRONT DESK OFFICER) [facility] Anti Factor Xa 0.68 IUnits/mL [facility] Comment: Interpretive Data Enoxaparin therapeutic range (peak): [...] revised on 2019. Blood 12/07/2023 1:11 AM FRONT DESK OFFICER 12/07/2023 1:29 AM FRONT DESK OFFICER Narrative [facility] - 12/07/2023 1:41 AM FRONT DESK OFFICER Draw anti-Xa level on Sunday 2/2 @ 0130 (please make sure it is drawn 4-5 hours after the 3rd enoxaparin dose). Thank you. us Jimenez Henao MD LAB BLOOD ORDERABLES Final Result Performing Organization Address City/[facility]/ZIP Co de Phone Number [facility] [place] [address] * (ABNORMAL) CBC with auto differential (12/07/2023 1:11 AM FRONT DESK OFFICER) [facility] WBC 5.2 3.8 - 9.9 K/cumm [facility] Hgb 8.5(L) 13.0 - 17.5 g/dL [facility] Hct 26.3(L) 38.9 - 50.3 % [facility] Plt 286 150 - 400 K/cumm [facility] MPV 10.1 9.1 - 12.3 fL [facility] RBC 2.78(L) 4.30 - 5.80 M/cumm [facility] MCV 94.6 81.3 - 96.4 fL [facility] MCH 30.6 27.1 - 33.3 pg [facility] MCHC 32.3 32.3 - 35.7 g/dL [facility] RDW CV 16.6(H) 11.1 - 14.9 % [facility] RDW SD 57.1(H) 35.7 - 48.1 fL [facility] NRBC abs 0.00 0.00 - 0.01 K/cumm [facility] Blood 12/07/2023 1:11 AM FRONT DESK OFFICER 12/07/2023 2:04 AM FRONT DESK OFFICER Nicolas Dobbs MD LAB BLOOD ORDERABLE S Final Result [facility] [place] [employer] [place] [address] * Phosphorus (12/07/2023 1:11 AM FRONT DESK OFFICER) [facility] Phosphorus, pl 3.9 2.3 - 4.5 mg/dL [facility] Blood 12/07/2023 1:11 AM FRONT DESK OFFICER 12/07/2023 1:30 AM FRONT DESK OFFICER Nicolas Dobbs MD LAB BLOOD ORDERABLE S Final Result [facility] [place] [employer] [place] [address] * Magnesium (12/07/2023 1:11 AM FRONT DESK OFFICER) [facility] Magnesium 1.9 1.4 - 2.5 mg/dL [facility] Blood 12/07/2023 1:11 AM FRONT DESK OFFICER 12/07/2023 1:30 AM FRONT DESK OFFICER Nicolas Dobbs MD LAB BLOOD ORDERABLE S Final Result Performing Organization Address [facility] Co de Phone Number [facility] [place] [employer] [place] [address] * (ABNORMAL) Hepatic function panel (12/07/2023 1:11 AM FRONT DESK OFFICER) [facility] Bilirubin, total 0.2 0.1 - 1.2 mg/dL [facility] Bilirubin, direct <0.2 0.1 - 0.3 mg/dL [facility] Protein, pl 5.9(L) 6.5 - 8.5 g/dL [facility] Albumin 2.8(L) 3.5 - 5.0 g/dL [facility] Alk phos 132(H) 40 - 130 Units/L [facility] ALT 37 7 - 55 Units/L [facility] AST 29 10 - 50 Units/L [facility] Blood 12/07/2023 1:11 AM FRONT DESK OFFICER 12/07/2023 1:30 AM FRONT DESK OFFICER Nicolas Dobbs MD LAB BLOOD ORDERABLE S Final Result Performing Organization Address [facility] de Phone Number [facility] [place] [employer] [place] [address] * Basic metabolic panel (12/07/2023 1:11 AM FRONT DESK OFFICER) [facility] Sodium 137 135 - 145 mmol/L [facility] Potassium, pl 4.0 3.3 - 4.9 mmol/L [facility] Chloride 104 97 - 110 mmol/L [facility] CO2 24 22 - 32 mmol/L [facility] Anion gap 9 2 - 15 mmol/L [facility] BUN 21 6 - 25 mg/dL [facility] Creatinine 1.05 0.80 - 1.30 mg/dL [facility] Glucose 93 70 - 199 mg/dL [facility] [...] 2022. Calcium 8.5 8.5 - 10.3 mg/dL [facility] Blood 12/07/2023 1:11 AM FRONT DESK OFFICER 12/07/2023 1:30 AM FRONT DESK OFFICER Nicolas Dobbs MD LAB BLOOD ORDERABLE S Final Result [facility] [place] [address] * eGFR (12/05/2023 10:10 PM FRONT DESK OFFICER) eGFR >90 >=60 mL/min/1. 73 m2 [facility] Comment: Interpretive Data Reference Interval [...] reviewed 2021. Blood 12/05/2023 10:1 0 PM FRONT DESK OFFICER 12/05/2023 10:56 PM FRONT DESK OFFICER us Nicolas Dobbs MD LAB BLOOD ORDERABLE S Final Result [facility] [place] [address] * Differential, auto (12/05/2023 10:10 PM FRONT DESK OFFICER) Neutrophil abs 3.3 1.5 - 6.5 K/cumm [facility] Imm gran abs 0.1 0.0 - 0.1 K/cumm [facility] Lymphocyte abs 1.3 0.8 - 3.3 K/cumm [facility] Monocyte abs 0.5 0.2 - 0.8 K/cumm [facility] Eosinophil abs 0.3 0.0 - 0.5 K/cumm [facility] Basophil abs 0.0 0.0 - 0.1 K/cumm [facility] Neutrophil pct 60.9 % [facility] Comment: Interpretive Data Percent cell count reference ranges are not reported, since discordance with absolute values may lead to misinterpretation of CBC data. Current Interpretive Data was last revised on 2018. Imm gran pct 0.9 % [facility] Comment: Interpretive Data Percent cell count reference ranges are not reported, since discordance with absolute values may lead to misinterpretation of CBC data. Current Interpretive Data was last revised on 2018. Lymphocyte pct 22.9 % [facility] Comment: Interpretive Data Percent cell count reference ranges are not reported, since discordance with absolute values may lead to misinterpretation of CBC data. Current Interpretive Data was last revised on 2018. Monocyte pct 8.8 % [facility] Comment: Interpretive Data Percent cell count reference ranges are not reported, since discordance with absolute values may lead to misinterpretation of CBC data. Current Interpretive Data was last revised on 2018. Eosinophil pct 6.1 % [facility] Comment: Interpretive Data Percent cell count reference ranges are not reported, since discordance with absolute values may lead to misinterpretation of CBC data. Current Interpretive Data was last revised on 2018. Basophil pct 0.4 % [facility] Comment: Interpretive Data Percent cell count reference ranges are not reported, since discordance with absolute values may lead to misinterpretation of CBC data. Current Interpretive Data was last revised on 2018. Blood 12/05/2023 10:1 0 PM FRONT DESK OFFICER 12/05/2023 10:56 PM FRONT DESK OFFICER Nicolas Dobbs MD LAB BLOOD ORDERABLE S Final Result Performing Organization Address City/[facility]/ZIP Co de Phone Number [facility] [place] [place] [address] * Type and screen (12/05/2023 10:10 PM FRONT DESK OFFICER) Pathologist [facility] ABO Rh O Positive Jigna, indirect Negative [facility] Blood 12/05/2023 10:1 0 PM FRONT DESK OFFICER 12/05/2023 10:45 PM FRONT DESK OFFICER Narrative [facility] - 12/05/2023 11:45 PM FRONT DESK OFFICER Has the patient had Daratumumab or Isatuximab in the past 6 months?->Unknown Nicolas Dobbs MD LAB BLOOD BANK TEST ORDERABLES Final Result [facility] [place] [address] * (ABNORMAL) CBC with auto differential (12/05/2023 10:10 PM FRONT DESK OFFICER) Pathologist [facility] WBC 5.5 3.8 - 9.9 K/cumm [facility] Hgb 8.8(L) 13.0 - 17.5 g/dL [facility] Hct 27.3(L) 38.9 - 50.3 % [facility] Plt 286 150 - 400 K/cumm [facility] MPV 9.9 9.1 - 12.3 fL [facility] RBC 2.94(L) 4.30 - 5.80 M/cumm [facility] MCV 92.9 81.3 - 96.4 fL [facility] MCH 29.9 27.1 - 33.3 pg [facility] MCHC 32.2(L) 32.3 - 35.7 g/dL [facility] RDW CV 16.1(H) 11.1 - 14.9 % [facility] RDW SD 53.8(H) 35.7 - 48.1 fL [facility] NRBC abs 0.00 0.00 - 0.01 K/cumm [facility] Blood 12/05/2023 10:1 0 PM FRONT DESK OFFICER 12/05/2023 10:56 PM FRONT DESK OFFICER Nicolas Dobbs MD LAB BLOOD ORDERABLE S Final Result [facility] Department [place] [place] [address] * Phosphorus (12/05/2023 10:10 PM FRONT DESK OFFICER) Pathologist [facility] Phosphorus, pl 3.3 2.3 - 4.5 mg/dL [facility] Blood 12/05/2023 10:1 0 PM FRONT DESK OFFICER 12/05/2023 10:56 PM FRONT DESK OFFICER Nicolas Dobbs MD LAB BLOOD ORDERABLE S Final Result Performing Organization Address City/[facility]/ZIP Co de Phone Number [facility] [place] [employer] [place] [address] * Magnesium (12/05/2023 10:10 PM FRONT DESK OFFICER) [facility] Magnesium 1.8 1.4 - 2.5 mg/dL [facility] Blood 12/05/2023 10:1 0 PM FRONT DESK OFFICER 12/05/2023 10:56 PM FRONT DESK OFFICER Nicolas Dobbs MD LAB BLOOD ORDERABLE S Final Result Performing Organization Address [facility] de Phone Number [facility] [place] [address] * (ABNORMAL) Hepatic function panel (12/05/2023 10:10 PM FRONT DESK OFFICER) [facility] Bilirubin, total 0.2 0.1 - 1.2 mg/dL [facility] Bilirubin, direct <0.2 0.1 - 0.3 mg/dL [facility] Protein, pl 5.9(L) 6.5 - 8.5 g/dL [facility] Albumin 2.9(L) 3.5 - 5.0 g/dL [facility] Alk phos 146(H) 40 - 130 Units/L [facility] ALT 47 7 - 55 Units/L [facility] AST 37 10 - 50 Units/L [facility] Blood 12/05/2023 10:1 0 PM FRONT DESK OFFICER 12/05/2023 10:56 PM FRONT DESK OFFICER Nicolas Dobbs MD LAB BLOOD ORDERABLE S Final Result Performing Organization Address [facility] de Phone Number [facility] [place] [employer] [place] [address] * (ABNORMAL) Basic metabolic panel (12/05/2023 10:10 PM FRONT DESK OFFICER) [facility] Sodium 137 135 - 145 mmol/L [facility] Potassium, pl 3.6 3.3 - 4.9 mmol/L [facility] Chloride 105 97 - 110 mmol/L [facility] CO2 22 22 - 32 mmol/L [facility] Anion gap 10 2 - 15 mmol/L [facility] BUN 19 6 - 25 mg/dL [facility] Creatinine 0.80 0.80 - 1.30 mg/dL [facility] Glucose 122 70 - 199 mg/dL [facility] [...] 2022. Calcium 8.2(L) 8.5 - 10.3 mg/dL [facility] Blood 12/05/2023 10:1 0 PM FRONT DESK OFFICER 12/05/2023 10:56 PM FRONT DESK OFFICER Nicolas Dobbs MD LAB BLOOD ORDERABLE S Final Result [facility] Department [place] [address] * POCT glucose (12/05/2023 12:12 PM FRONT DESK OFFICER) Glucose, POC 111 70 - 199 mg/dL [facility] Blood 12/05/2023 12:1 2 PM FRONT DESK OFFICER 12/05/2023 12:12 PM FRONT DESK OFFICER us Jimenez Henao MD LAB POCT ORDERABLES - DEVICE Final Result [facility] [place] [employer] [place] [address] * POCT glucose (12/05/2023 7:59 AM FRONT DESK OFFICER) Glucose, POC 156 70 - 199 mg/dL [facility] Blood 12/05/2023 7:59 AM FRONT DESK OFFICER 12/05/2023 7:59 AM FRONT DESK OFFICER us Jimenez Henao MD LAB POCT ORDERABLES - DEVICE Final Result Performing Organization Address [facility] de Phone Number [facility] [place] [address] * (ABNORMAL) aPTT (12/05/2023 5:06 AM FRONT DESK OFFICER) aPTT 81(H) 28 - 38 sec [facility] Comment: Interpretive Data Heparin therapeutic range: 66.0 - 100.0 seconds. Range based on correlation with therapeutic heparin activity range of 0.3 - 0.7 Units/mL. Current interpretive data was last revised on 2023. Blood 12/05/2023 5:06 AM FRONT DESK OFFICER 12/05/2023 6:15 AM FRONT DESK OFFICER Jimenez Henao MD LAB BLOOD ORDERABLES Final Result Performing Organization Address [facility] de Phone Number [facility] [place] [address] * eGFR (12/04/2023 11:43 PM FRONT DESK OFFICER) Pathologist [facility] eGFR 80 >=60 mL/min/1. 73 m2 [facility] Comment: Interpretive Data Reference Interval Normal ?>/= [...] reviewed 2021. Blood 12/04/2023 11:4 3 PM FRONT DESK OFFICER 12/05/2023 1:25 AM FRONT DESK OFFICER us Nicolas Dobbs MD LAB BLOOD ORDERABLE S Final Result [facility] [place] [address] * Differential, auto (12/04/2023 11:43 PM FRONT DESK OFFICER) Pathologist [facility] Neutrophil abs 3.9 1.5 - 6.5 K/cumm [facility] Imm gran abs 0.1 0.0 - 0.1 K/cumm [facility] Lymphocyte abs 1.4 0.8 - 3.3 K/cumm [facility] Monocyte abs 0.5 0.2 - 0.8 K/cumm [facility] Eosinophil abs 0.3 0.0 - 0.5 K/cumm [facility] Basophil abs 0.0 0.0 - 0.1 K/cumm [facility] Neutrophil pct 63.2 % [facility] Comment: Interpretive Data Percent cell count reference ranges are not reported, since discordance with absolute values may lead to misinterpretation of CBC data. Current Interpretive Data was last revised on 2018. Imm gran pct 1.5 % [facility] Comment: Interpretive Data Percent cell count reference ranges are not reported, since discordance with absolute values may lead to misinterpretation of CBC data. Current Interpretive Data was last revised on 2018. Lymphocyte pct 22.4 % [facility] Comment: Interpretive Data Percent cell count reference ranges are not reported, since discordance with absolute values may lead to misinterpretation of CBC data. Current Interpretive Data was last revised on 2018. Monocyte pct 7.4 % [facility] Comment: Interpretive Data Percent cell count reference ranges are not reported, since discordance with absolute values may lead to misinterpretation of CBC data. Current Interpretive Data was last revised on 2018. Eosinophil pct 5.2 % [facility] Comment: Interpretive Data Percent cell count reference ranges are not reported, since discordance with absolute values may lead to misinterpretation of CBC data. Current Interpretive Data was last revised on 2018. Basophil pct 0.3 % [facility] Comment: Interpretive Data Percent cell count reference ranges are not reported, since discordance with absolute values may lead to misinterpretation of CBC data. Current Interpretive Data was last revised on 2018. Blood 12/04/2023 11:4 3 PM FRONT DESK OFFICER 12/05/2023 1:20 AM FRONT DESK OFFICER us Nicolas Dobbs MD LAB BLOOD ORDERABLE S Final Result [facility] [place] [address] * (ABNORMAL) CBC with auto differential (12/04/2023 11:43 PM FRONT DESK OFFICER) WBC 6.1 3.8 - 9.9 K/cumm [facility] Hgb 8.7(L) 13.0 - 17.5 g/dL [facility] Hct 27.6(L) 38.9 - 50.3 % [facility] Plt 338 150 - 400 K/cumm [facility] MPV 9.8 9.1 - 12.3 fL [facility] RBC 2.96(L) 4.30 - 5.80 M/cumm [facility] MCV 93.2 81.3 - 96.4 fL [facility] MCH 29.4 27.1 - 33.3 pg [facility] MCHC 31.5(L) 32.3 - 35.7 g/dL [facility] RDW CV 15.9(H) 11.1 - 14.9 % [facility] RDW SD 53.3(H) 35.7 - 48.1 fL [facility] NRBC abs 0.00 0.00 - 0.01 K/cumm [facility] Blood 12/04/2023 11:4 3 PM FRONT DESK OFFICER 12/05/2023 1:20 AM FRONT DESK OFFICER Nicolas Dobbs MD LAB BLOOD ORDERABLE S Final Result [facility] [place] [address] * Phosphorus (12/04/2023 11:43 PM FRONT DESK OFFICER) Phosphorus, pl 3.9 2.3 - 4.5 mg/dL [facility] Blood 12/04/2023 11:4 3 PM FRONT DESK OFFICER 12/05/2023 1:25 AM FRONT DESK OFFICER Nicolas Dobbs MD LAB BLOOD ORDERABLE S Final Result Performing Organization Address City/[facility] Co de Phone Number [facility] Department [place] [address] * Magnesium (12/04/2023 11:43 PM FRONT DESK OFFICER) Magnesium 1.9 1.4 - 2.5 mg/dL [facility] Blood 12/04/2023 11:4 3 PM FRONT DESK OFFICER 12/05/2023 1:25 AM FRONT DESK OFFICER Nicolas Dobbs MD LAB BLOOD ORDERABLE S Final Result Performing Organization Address City/[facility] Co de Phone Number [facility] [place] [address] * (ABNORMAL) Hepatic function panel (12/04/2023 11:43 PM FRONT DESK OFFICER) Bilirubin, total 0.2 0.1 - 1.2 mg/dL [facility] Bilirubin, direct <0.2 0.1 - 0.3 mg/dL [facility] Protein, pl 6.1(L) 6.5 - 8.5 g/dL [facility] Albumin 2.8(L) 3.5 - 5.0 g/dL [facility] Alk phos 156(H) 40 - 130 Units/L [facility] ALT 52 7 - 55 Units/L [facility] AST 48 10 - 50 Units/L [facility] Blood 12/04/2023 11:4 3 PM FRONT DESK OFFICER 12/05/2023 1:25 AM FRONT DESK OFFICER us Nicolas Dobbs MD LAB BLOOD ORDERABLE S Final Result [facility] [place] [address] * Basic metabolic panel (12/04/2023 11:43 PM FRONT DESK OFFICER) [facility] Sodium 138 135 - 145 mmol/L [facility] Potassium, pl 3.8 3.3 - 4.9 mmol/L [facility] Chloride 107 97 - 110 mmol/L [facility] CO2 23 22 - 32 mmol/L [facility] Anion gap 8 2 - 15 mmol/L [facility] BUN 22 6 - 25 mg/dL [facility] Creatinine 1.00 0.80 - 1.30 mg/dL [facility] Glucose 94 70 - 199 mg/dL [facility] [...] 2022. Calcium 8.5 8.5 - 10.3 mg/dL [facility] Blood 12/04/2023 11:4 3 PM FRONT DESK OFFICER 12/05/2023 1:25 AM FRONT DESK OFFICER Nicolas Dobbs MD LAB BLOOD ORDERABLE S Final Result Performing Organization Address [facility] de Phone Number [facility] [employer] [place] [address] * POCT glucose (12/04/2023 8:44 PM FRONT DESK OFFICER) Glucose, POC 116 70 - 199 mg/dL [facility] Blood 12/04/2023 8:44 PM FRONT DESK OFFICER 12/04/2023 8:44 PM FRONT DESK OFFICER Jimenez Henao MD LAB POCT ORDERABLES - DEVICE Final Result Performing Organization Address [facility] de Phone Number [facility] [place] [employer] [place] [address] * POCT glucose (12/04/2023 4:25 PM FRONT DESK OFFICER) Glucose, POC 112 70 - 199 mg/dL [facility] Blood 12/04/2023 4:25 PM FRONT DESK OFFICER 12/04/2023 4:25 PM FRONT DESK OFFICER Jimenez Henao MD LAB POCT ORDERABLES - DEVICE Final Result Performing Organization Address [facility] de Phone Number [facility] [place] [employer] [place] [address] * POCT glucose (12/04/2023 11:36 AM FRONT DESK OFFICER) Glucose, POC 120 70 - 199 mg/dL [facility] Blood 12/04/2023 11:3 6 AM FRONT DESK OFFICER 12/04/2023 11:36 AM FRONT DESK OFFICER us Jimenez Henao MD LAB POCT ORDERABLES - DEVICE Final Result Performing Organization Address [facility] Co de Phone Number [facility] [place] [address] * POCT glucose (12/04/2023 7:24 AM FRONT DESK OFFICER) Pathologist [facility] Glucose, POC 111 70 - 199 mg/dL [facility] Blood 12/04/2023 7:24 AM FRONT DESK OFFICER 12/04/2023 7:24 AM FRONT DESK OFFICER us Jimenez Henao MD LAB POCT ORDERABLES - DEVICE Final Result Performing Organization Address [facility] de Phone Number [facility] [place] [address] * eGFR (12/03/2023 10:04 PM FRONT DESK OFFICER) Pathologist [facility] eGFR 90 >=60 mL/min/1. 73 m2 [facility] Comment: Interpretive Data Reference Interval Normal ?>/= [...] reviewed 2021. Blood 12/03/2023 10:0 4 PM FRONT DESK OFFICER 12/03/2023 10:41 PM FRONT DESK OFFICER us Nicolas Dobbs MD LAB BLOOD ORDERABLE S Final Result [facility] [place] [address] * Differential, auto (12/03/2023 10:04 PM FRONT DESK OFFICER) Neutrophil abs 3.3 1.5 - 6.5 K/cumm [facility] Imm gran abs 0.1 0.0 - 0.1 K/cumm [facility] Lymphocyte abs 1.3 0.8 - 3.3 K/cumm [facility] Monocyte abs 0.4 0.2 - 0.8 K/cumm [facility] Eosinophil abs 0.3 0.0 - 0.5 K/cumm [facility] Basophil abs 0.0 0.0 - 0.1 K/cumm [facility] Neutrophil pct 60.8 % [facility] Comment: Interpretive Data Percent cell count reference ranges are not reported, since discordance with absolute values may lead to misinterpretation of CBC data. Current Interpretive Data was last revised on 2018. Imm gran pct 1.5 % [facility] Comment: Interpretive Data Percent cell count reference ranges are not reported, since discordance with absolute values may lead to misinterpretation of CBC data. Current Interpretive Data was last revised on 2018. Lymphocyte pct 23.8 % [facility] Comment: Interpretive Data Percent cell count reference ranges are not reported, since discordance with absolute values may lead to misinterpretation of CBC data. Current Interpretive Data was last revised on 2018. Monocyte pct 7.2 % [facility] Comment: Interpretive Data Percent cell count reference ranges are not reported, since discordance with absolute values may lead to misinterpretation of CBC data. Current Interpretive Data was last revised on 2018. Eosinophil pct 6.3 % [facility] Comment: Interpretive Data Percent cell count reference ranges are not reported, since discordance with absolute values may lead to misinterpretation of CBC data. Current Interpretive Data was last revised on 2018. Basophil pct 0.4 % [facility] Comment: Interpretive Data Percent cell count reference ranges are not reported, since discordance with absolute values may lead to misinterpretation of CBC data. Current Interpretive Data was last revised on 2018. Blood 12/03/2023 10:0 4 PM FRONT DESK OFFICER 12/03/2023 10:38 PM FRONT DESK OFFICER Nicolas Dobbs MD LAB BLOOD ORDERABLE S Final Result Performing Organization Address [facility] Co de Phone Number [facility] [place] [employer] [place] [address] * (ABNORMAL) aPTT (12/03/2023 10:04 PM FRONT DESK OFFICER) aPTT 80(H) 28 - 38 sec [facility] Comment: Interpretive Data Heparin therapeutic range: 66.0 - 100.0 seconds. Range based on correlation with therapeutic heparin activity range of 0.3 - 0.7 Units/mL. Current interpretive data was last revised on 2023. Blood 12/03/2023 10:0 4 PM FRONT DESK OFFICER 12/03/2023 10:46 PM FRONT DESK OFFICER Narrative [facility] - 12/03/2023 10:55 PM FRONT DESK OFFICER Draw STAT PTT 6 hrs after initiation of heparin infusion, draw STAT PTT 6 hours after each dose change, and every 6 hours until 2 consecutive PTTs are within therapeutic range. Once two consecutive PTT's are therapeutic (66-100 seconds), then draw PTT every AM until heparin is discontinued. us Vibha Ramirez MD LAB BLOOD ORDERABLES Fide l Result Performing Organization Address City/[facility]/ZIP Co de Phone Number [facility] Department [place] [employer] [place] [address] * (ABNORMAL) CBC with auto differential (12/03/2023 10:04 PM FRONT DESK OFFICER) [facility] WBC 5.4 3.8 - 9.9 K/cumm [facility] Hgb 8.7(L) 13.0 - 17.5 g/dL [facility] Hct 26.6(L) 38.9 - 50.3 % [facility] Plt 302 150 - 400 K/cumm [facility] MPV 9.9 9.1 - 12.3 fL [facility] RBC 2.92(L) 4.30 - 5.80 M/cumm [facility] MCV 91.1 81.3 - 96.4 fL [facility] MCH 29.8 27.1 - 33.3 pg [facility] MCHC 32.7 32.3 - 35.7 g/dL [facility] RDW CV 15.4(H) 11.1 - 14.9 % [facility] RDW SD 51.0(H) 35.7 - 48.1 fL [facility] NRBC abs 0.00 0.00 - 0.01 K/cumm [facility] Blood 12/03/2023 10:0 4 PM FRONT DESK OFFICER 12/03/2023 10:38 PM FRONT DESK OFFICER Nicolas Dobbs MD LAB BLOOD ORDERABLE S Final Result Performing Organization Address City/[facility]/ZIP Co de Phone Number [facility] [place] [address] * Phosphorus (12/03/2023 10:04 PM FRONT DESK OFFICER) [facility] Phosphorus, pl 3.5 2.3 - 4.5 mg/dL [facility] Blood 12/03/2023 10:0 4 PM FRONT DESK OFFICER 12/03/2023 10:41 PM FRONT DESK OFFICER Nicolas Dobbs MD LAB BLOOD ORDERABLE S Final Result [facility] [place] [address] * Magnesium (12/03/2023 10:04 PM FRONT DESK OFFICER) [facility] Magnesium 2.0 1.4 - 2.5 mg/dL [facility] Blood 12/03/2023 10:0 4 PM FRONT DESK OFFICER 12/03/2023 10:41 PM FRONT DESK OFFICER Nicolas Dobbs MD LAB BLOOD ORDERABLE S Final Result [facility] [place] [address] * (ABNORMAL) Hepatic function panel (12/03/2023 10:04 PM FRONT DESK OFFICER) [facility] Bilirubin, total 0.2 0.1 - 1.2 mg/dL [facility] Bilirubin, direct <0.2 0.1 - 0.3 mg/dL [facility] Protein, pl 6.1(L) 6.5 - 8.5 g/dL [facility] Albumin 2.9(L) 3.5 - 5.0 g/dL [facility] Alk phos 160(H) 40 - 130 Units/L [facility] ALT 44 7 - 55 Units/L [facility] AST 43 10 - 50 Units/L [facility] Blood 12/03/2023 10:0 4 PM FRONT DESK OFFICER 12/03/2023 10:41 PM FRONT DESK OFFICER Nicolas Dobbs MD LAB BLOOD ORDERABLE S Final Result [facility] [place] [address] * (ABNORMAL) Basic metabolic panel (12/03/2023 10:04 PM FRONT DESK OFFICER) [facility] Sodium 134(L) 135 - 145 mmol/L [facility] Potassium, pl 4.4 3.3 - 4.9 mmol/L [facility] Chloride 103 97 - 110 mmol/L [facility] CO2 23 22 - 32 mmol/L [facility] Anion gap 8 2 - 15 mmol/L [facility] BUN 23 6 - 25 mg/dL [facility] Creatinine 0.91 0.80 - 1.30 mg/dL [facility] Glucose 101 70 - 199 mg/dL [facility] [...] 2022. Calcium 8.5 8.5 - 10.3 mg/dL [facility] Blood 12/03/2023 10:0 4 PM FRONT DESK OFFICER 12/03/2023 10:41 PM FRONT DESK OFFICER Nicolas Dobbs MD LAB BLOOD ORDERABLE S Final Result Performing Organization Address City/[facility]/ZIP Co de Phone Number [facility] Department [place] [employer] [place] [address] * POCT glucose (12/03/2023 8:07 PM FRONT DESK OFFICER) Glucose, POC 119 70 - 199 mg/dL [facility] Blood 12/03/2023 8:07 PM FRONT DESK OFFICER 12/03/2023 8:07 PM FRONT DESK OFFICER Nicolas Dobbs MD LAB POCT ORDERABLES - DEVICE Final Result Performing Organization Address City/[facility]/ZIP Co de Phone Number [facility] [place] [address] * POCT glucose (12/03/2023 4:37 PM FRONT DESK OFFICER) Glucose, POC 123 70 - 199 mg/dL [facility] Blood 12/03/2023 4:37 PM FRONT DESK OFFICER 12/03/2023 4:37 PM FRONT DESK OFFICER Nicolas Dobbs MD LAB POCT ORDERABLES - DEVICE Final Result Performing Organization Address [facility] Co de Phone Number [facility] [employer] [place] [address] * (ABNORMAL) aPTT (12/03/2023 1:42 PM FRONT DESK OFFICER) [facility] aPTT 84(H) 28 - 38 sec [facility] Comment: Interpretive Data Heparin therapeutic range: 66.0 - 100.0 seconds. Range based on correlation with therapeutic heparin activity range of 0.3 - 0.7 Units/mL. Current interpretive data was last revised on 2023. Blood 12/03/2023 1:42 PM FRONT DESK OFFICER 12/03/2023 1:49 PM FRONT DESK OFFICER Nicolas Dobbs MD LAB BLOOD ORDERABLE S Final Result Performing Organization Address [facility] [place] [address] * POCT glucose (12/03/2023 11:21 AM FRONT DESK OFFICER) Glucose, POC 112 70 - 199 mg/dL [facility] Blood 12/03/2023 11:2 1 AM FRONT DESK OFFICER 12/03/2023 11:21 AM FRONT DESK OFFICER Nicolas Dobbs MD LAB POCT ORDERABLES - DEVICE Final Result Performing Organization Address [facility] [place] [address] * POCT glucose (12/03/2023 7:36 AM FRONT DESK OFFICER) Glucose, POC 130 70 - 199 mg/dL [facility] Blood 12/03/2023 7:36 AM FRONT DESK OFFICER 12/03/2023 7:36 AM FRONT DESK OFFICER Nicolas Dobbs MD LAB POCT ORDERABLES - DEVICE Final Result Performing Organization Address [facility] de Phone Number [facility] [place] [employer] [place] [address] * (ABNORMAL) aPTT (12/03/2023 5:38 AM FRONT DESK OFFICER) [facility] aPTT 84(H) 28 - 38 sec [facility] Comment: Interpretive Data Heparin therapeutic range: 66.0 - 100.0 seconds. Range based on correlation with therapeutic heparin activity range of 0.3 - 0.7 Units/mL. Current interpretive data was last revised on 2023. Blood 12/03/2023 5:38 AM FRONT DESK OFFICER 12/03/2023 6:30 AM FRONT DESK OFFICER Narrative [facility] - 12/03/2023 6:52 AM FRONT DESK OFFICER Draw STAT PTT 6 hrs after initiation of heparin infusion, draw STAT PTT 6 hours after each dose change, and every 6 hours until 2 consecutive PTTs are within therapeutic range. Once two consecutive PTT's are therapeutic (66-100 seconds), then draw PTT every AM until heparin is discontinued. Vibha Ramirez MD LAB BLOOD ORDERABLES Fide l Result Performing Organization Address [facility] de Phone Number [facility] Department [place] [employer] [place] [address] * eGFR (12/02/2023 10:07 PM FRONT DESK OFFICER) [facility] eGFR 90 >=60 mL/min/1. 73 m2 [facility] Comment: Interpretive Data Reference Interval Normal ?>/= [...] reviewed 2021. Blood 12/02/2023 10:0 7 PM FRONT DESK OFFICER 12/02/2023 10:54 PM FRONT DESK OFFICER us Nicolas Dobbs MD LAB BLOOD ORDERABLE S Final Result [facility] [place] [address] * Differential, auto (12/02/2023 10:07 PM FRONT DESK OFFICER) Neutrophil abs 3.3 1.5 - 6.5 K/cumm [facility] Imm gran abs 0.1 0.0 - 0.1 K/cumm [facility] Lymphocyte abs 1.0 0.8 - 3.3 K/cumm [facility] Monocyte abs 0.4 0.2 - 0.8 K/cumm [facility] Eosinophil abs 0.3 0.0 - 0.5 K/cumm [facility] Basophil abs 0.0 0.0 - 0.1 K/cumm [facility] Neutrophil pct 64.5 % [facility] Comment: Interpretive Data Percent cell count reference [...] on 2018. Blood 12/02/2023 10:0 7 PM FRONT DESK OFFICER 12/02/2023 10:54 PM FRONT DESK OFFICER us Nicolas Dobbs MD LAB BLOOD ORDERABLE S Final Result [facility] [place] [address] * (ABNORMAL) aPTT (12/02/2023 10:07 PM FRONT DESK OFFICER) aPTT 59(H) 28 - 38 sec [facility] Comment: Interpretive Data Heparin therapeutic range: 66.0 - 100.0 seconds. Range based on correlation with therapeutic heparin activity range of 0.3 - 0.7 Units/mL. Current interpretive data was last revised on 2023. Blood 12/02/2023 10:0 7 PM FRONT DESK OFFICER 12/02/2023 10:48 PM FRONT DESK OFFICER Narrative [facility] - 12/02/2023 11:10 PM FRONT DESK OFFICER Draw STAT PTT 6 hrs after initiation of heparin infusion, draw STAT PTT 6 hours after each dose change, and every 6 hours until 2 consecutive PTTs are within therapeutic range. Once two consecutive PTT's are therapeutic (66-100 seconds), then draw PTT every AM until heparin is discontinued. Vibha Ramirez MD LAB BLOOD ORDERABLES Fide l Result Performing Organization Address City/[facility]/[place] [address] * Extra slide preparation (12/02/2023 10:07 PM FRONT DESK OFFICER) Pathologist [facility] Extra slide prep Test Completed [facility] Blood 12/02/2023 10:0 7 PM FRONT DESK OFFICER 12/02/2023 10:54 PM FRONT DESK OFFICER Nicolas Dobbs MD LAB BLOOD ORDERABLE S Final Result Performing Organization Address [facility] Co de Phone Number [facility] [address] * Direct antiglobulin test (12/02/2023 10:07 PM FRONT DESK OFFICER) Pathologist [facility] Direct Jigna BS Interpretation Negative Blood 12/02/2023 10:0 7 PM FRONT DESK OFFICER 12/02/2023 10:53 PM FRONT DESK OFFICER Nicolas Dobbs MD LAB BLOOD BANK TEST ORDERABLES Final Result Performing Organization Address City/[facility] [place] [address] * (ABNORMAL) Lactate dehydrogenase (LD) (12/02/2023 10:07 PM FRONT DESK OFFICER) Pathologist [facility] Lactate dehydrogenase (LDH) 397(H) 100 - 250 Units/L [facility] Blood 12/02/2023 10:0 7 PM FRONT DESK OFFICER 12/02/2023 10:54 PM FRONT DESK OFFICER Nicolas Dobbs MD LAB BLOOD ORDERABLE S Final Result Performing Organization Address [facility] Co de Phone Number [facility] [place] [address] * (ABNORMAL) Haptoglobin (12/02/2023 10:07 PM FRONT DESK OFFICER) [facility] Haptoglobin <10.0(L) 30.0 - 200.0 mg/dL [facility] Blood 12/02/2023 10:0 7 PM FRONT DESK OFFICER 12/02/2023 10:54 PM FRONT DESK OFFICER Nicolas Dobbs MD LAB BLOOD ORDERABLE S Final Result Performing Organization Address [facility] Co de Phone Number [facility] [place] [address] * Type and screen (12/02/2023 10:07 PM FRONT DESK OFFICER) [facility] ABO Rh O Positive Jigna, indirect Negative [facility] Blood 12/02/2023 10:0 7 PM FRONT DESK OFFICER 12/02/2023 10:53 PM FRONT DESK OFFICER Narrative [facility] - 12/03/2023 12:01 AM FRONT DESK OFFICER Has the patient had Daratumumab or Isatuximab in the past 6 months?->Unknown Nicolas Dobbs MD LAB BLOOD BANK TEST ORDERABLES Final Result Performing Organization Address [facility] [place] [address] * (ABNORMAL) CBC with auto differential (12/02/2023 10:07 PM FRONT DESK OFFICER) Pathologist [facility] WBC 5.2 3.8 - 9.9 K/cumm [facility] Hgb 8.5(L) 13.0 - 17.5 g/dL [facility] Hct 25.7(L) 38.9 - 50.3 % [facility] Plt 263 150 - 400 K/cumm [facility] MPV 9.7 9.1 - 12.3 fL [facility] RBC 2.83(L) 4.30 - 5.80 M/cumm [facility] MCV 90.8 81.3 - 96.4 fL [facility] MCH 30.0 27.1 - 33.3 pg [facility] MCHC 33.1 32.3 - 35.7 g/dL [facility] RDW CV 14.9 11.1 - 14.9 % [facility] RDW SD 49.7(H) 35.7 - 48.1 fL [facility] NRBC abs 0.00 0.00 - 0.01 K/cumm [facility] Blood 12/02/2023 10:0 7 PM FRONT DESK OFFICER 12/02/2023 10:54 PM FRONT DESK OFFICER Nicolas Dobbs MD LAB BLOOD ORDERABLE S Final Result Performing Organization Address City/[facility]/ZIP Co de Phone Number [facility] Department [place] [employer] [place] [address] * Phosphorus (12/02/2023 10:07 PM FRONT DESK OFFICER) [facility] Phosphorus, pl 3.4 2.3 - 4.5 mg/dL [facility] Blood 12/02/2023 10:0 7 PM FRONT DESK OFFICER 12/02/2023 10:54 PM FRONT DESK OFFICER Nicolas Dobbs MD LAB BLOOD ORDERABLE S Final Result Performing Organization Address City/[facility]/ZIP Co de Phone Number [facility] [place] [employer] [place] [address] * Magnesium (12/02/2023 10:07 PM FRONT DESK OFFICER) [facility] Magnesium 2.1 1.4 - 2.5 mg/dL [facility] Blood 12/02/2023 10:0 7 PM FRONT DESK OFFICER 12/02/2023 10:54 PM FRONT DESK OFFICER Nicolas Dobbs MD LAB BLOOD ORDERABLE S Final Result Performing Organization Address [facility] Co de Phone Number [facility] [place] [address] * (ABNORMAL) Hepatic function panel (12/02/2023 10:07 PM FRONT DESK OFFICER) [facility] Bilirubin, total 0.2 0.1 - 1.2 mg/dL [facility] Bilirubin, direct <0.2 0.1 - 0.3 mg/dL [facility] Protein, pl 5.9(L) 6.5 - 8.5 g/dL [facility] Albumin 2.8(L) 3.5 - 5.0 g/dL [facility] Alk phos 147(H) 40 - 130 Units/L [facility] ALT 44 7 - 55 Units/L [facility] AST 33 10 - 50 Units/L [facility] Blood 12/02/2023 10:0 7 PM FRONT DESK OFFICER 12/02/2023 10:54 PM FRONT DESK OFFICER Nicolas Dobbs MD LAB BLOOD ORDERABLE S Final Result Performing Organization Address [facility] Co de Phone Number [facility] [employer] [place] [address] * (ABNORMAL) Basic metabolic panel (12/02/2023 10:07 PM FRONT DESK OFFICER) [facility] Sodium 133(L) 135 - 145 mmol/L [facility] Potassium, pl 4.1 3.3 - 4.9 mmol/L [facility] Chloride 104 97 - 110 mmol/L [facility] CO2 23 22 - 32 mmol/L [facility] Anion gap 6 2 - 15 mmol/L [facility] BUN 22 6 - 25 mg/dL [facility] Creatinine 0.91 0.80 - 1.30 mg/dL [facility] Glucose 102 70 - 199 mg/dL [facility] [...] 2022. Calcium 8.6 8.5 - 10.3 mg/dL [facility] Blood 12/02/2023 10:0 7 PM FRONT DESK OFFICER 12/02/2023 10:54 PM FRONT DESK OFFICER iNcolas Dobbs MD LAB BLOOD ORDERABLE S Final Result Performing Organization Address [facility] Co de Phone Number [facility] [place] [address] * POCT glucose (12/02/2023 9:54 PM FRONT DESK OFFICER) [facility] Glucose, POC 110 70 - 199 mg/dL [facility] Blood 12/02/2023 9:54 PM FRONT DESK OFFICER 12/02/2023 9:54 PM FRONT DESK OFFICER Nicolas Dobbs MD LAB POCT ORDERABLES - DEVICE Final Result Performing Organization Address City/[facility]/ZIP Co de Phone Number [facility] [employer] [place] [address] * Transfuse RBC (12/02/2023 6:00 PM FRONT DESK OFFICER) Blood Nicolas Dobbs MD BLOOD TRANSFUSION O RDERABLES Final Result Performing Organization Address City/[facility]/[place] [address] * Transfuse RBC: 1 Units (12/02/2023 6:00 PM FRONT DESK OFFICER) Blood Nicolas Dobbs MD BLOOD TRANSFUSION O RDERABLES Final Result * POCT glucose (12/02/2023 4:13 PM FRONT DESK OFFICER) Glucose, POC 128 70 - 199 mg/dL [facility] Blood 12/02/2023 4:13 PM FRONT DESK OFFICER 12/02/2023 4:13 PM FRONT DESK OFFICER Nicolas Dobbs MD LAB POCT ORDERABLES - DEVICE Final Result Performing Organization Address [facility] [place] [address] * POCT glucose (12/02/2023 11:56 AM FRONT DESK OFFICER) Glucose, POC 129 70 - 199 mg/dL [facility] Blood 12/02/2023 11:5 6 AM FRONT DESK OFFICER 12/02/2023 11:56 AM FRONT DESK OFFICER Nicolas Dobbs MD LAB POCT ORDERABLES - [place] [address] * Prepare RBC: 1 Units (12/02/2023 11:12 AM FRONT DESK OFFICER) Product code [id number] Unit Number [id number] [facility] Product Blood Type OPOS [facility] Dispense Status PRESUMED TRANSFUSED [facility] Blood 12/02/2023 11:1 2 AM FRONT DESK OFFICER 12/02/2023 11:11 AM FRONT DESK OFFICER Narrative [facility] - 12/03/2023 12:45 AM FRONT DESK OFFICER Are special requirements needed? (All products are leukoreduced and CMV- safe)- >No Date required:-20231202 [facility] # of [id number] Reasons:-Active bleeding, Hgb <8 g/dL} Nicolas Dobbs MD BLOOD BANK PRODUCT ORDERABLES Final Result Performing Organization Address [facility] Co de Phone Number [facility] [place] [address] * POCT glucose (12/02/2023 7:28 AM FRONT DESK OFFICER) Glucose, POC 113 70 - 199 mg/dL [facility] Blood 12/02/2023 7:28 AM FRONT DESK OFFICER 12/02/2023 7:28 AM FRONT DESK OFFICER Nicolas Dobbs MD LAB POCT ORDERABLES - DEVICE Final Result Performing Organization Address [facility] de Phone Number [facility] [place] [address] * (ABNORMAL) aPTT (12/02/2023 7:01 AM FRONT DESK OFFICER) aPTT 77(H) 28 - 38 sec [facility] Comment: Interpretive Data Heparin therapeutic range: 66.0 - 100.0 seconds. Range based on correlation with therapeutic heparin activity range of 0.3 - 0.7 Units/mL. Current interpretive data was last revised on 2023. Blood 12/02/2023 7:01 AM FRONT DESK OFFICER 12/02/2023 7:56 AM FRONT DESK OFFICER Narrative [facility] - 12/02/2023 8:09 AM FRONT DESK OFFICER Draw STAT PTT 6 hrs after initiation of heparin infusion, draw STAT PTT 6 hours after each dose change, and every 6 hours until 2 consecutive PTTs are within therapeutic range. Once two consecutive PTT's are therapeutic (66-100 seconds), then draw PTT every AM until heparin is discontinued. Vibha Ramirez MD LAB BLOOD ORDERABLES Fide l Result Performing Organization Address [facility]/ZIP Co de Phone Number [facility] [place] [address] * eGFR (12/02/2023 1:15 AM FRONT DESK OFFICER) eGFR 80 >=60 mL/min/1. 73 m2 [facility] Comment: Interpretive Data Reference Interval Normal ?>/= [...] last reviewed 2021. Blood 12/02/2023 1:15 AM FRONT DESK OFFICER 12/02/2023 1:46 AM FRONT DESK OFFICER us Nicolas Dobbs MD LAB BLOOD ORDERABLE S Final Result Performing Organization Address [facility]/ZIP Co de Phone Number [facility] Department [place] [address] * Differential, auto (12/02/2023 1:15 AM FRONT DESK OFFICER) Pathologist [facility] Neutrophil abs 3.1 1.5 - 6.5 K/cumm [facility] Imm gran abs 0.1 0.0 - 0.1 K/cumm [facility] Lymphocyte abs 1.3 0.8 - 3.3 K/cumm [facility] Monocyte abs 0.3 0.2 - 0.8 K/cumm [facility] Eosinophil abs 0.4 0.0 - 0.5 K/cumm [facility] Basophil abs 0.0 0.0 - 0.1 K/cumm [facility] Neutrophil pct 60.1 % [facility] Comment: Interpretive Data Percent cell count reference ranges are not reported, since discordance with absolute values may lead to misinterpretation of CBC data. Current Interpretive Data was last revised on 2018. Imm gran pct 1.2 % [facility] Comment: Interpretive Data Percent cell count reference ranges are not reported, since discordance with absolute values may lead to misinterpretation of CBC data. Current Interpretive Data was last revised on 2018. Lymphocyte pct 24.2 % [facility] Comment: Interpretive Data Percent cell count reference ranges are not reported, since discordance with absolute values may lead to misinterpretation of CBC data. Current Interpretive Data was last revised on 2018. Monocyte pct 6.4 % [facility] Comment: Interpretive Data Percent cell count reference ranges are not reported, since discordance with absolute values may lead to misinterpretation of CBC data. Current Interpretive Data was last revised on 2018. Eosinophil pct 7.9 % [facility] Comment: Interpretive Data Percent cell count reference ranges are not reported, since discordance with absolute values may lead to misinterpretation of CBC data. Current Interpretive Data was last revised on 2018. Basophil pct 0.2 % [facility] Comment: Interpretive Data Percent cell count reference ranges are not reported, since discordance with absolute values may lead to misinterpretation of CBC data. Current Interpretive Data was last revised on 2018. Blood 12/02/2023 1:15 AM FRONT DESK OFFICER 12/02/2023 1:46 AM FRONT DESK OFFICER Nicolas Dobbs MD LAB BLOOD ORDERABLE S Final Result Performing Organization Address [facility] Co de Phone Number [facility] [place] [address] * (ABNORMAL) aPTT (12/02/2023 1:15 AM FRONT DESK OFFICER) [facility] aPTT 66(H) 28 - 38 sec [facility] Comment: Interpretive Data Heparin therapeutic range: 66.0 - 100.0 seconds. Range based on correlation with therapeutic heparin activity range of 0.3 - 0.7 Units/mL. Current interpretive data was last revised on 2023. Blood 12/02/2023 1:15 AM FRONT DESK OFFICER 12/02/2023 1:48 AM FRONT DESK OFFICER Narrative [facility] - 12/02/2023 2:18 AM FRONT DESK OFFICER Draw STAT PTT 6 hrs after initiation of heparin infusion, draw STAT PTT 6 hours after each dose change, and every 6 hours until 2 consecutive PTTs are within therapeutic range. Once two consecutive PTT's are therapeutic (66-100 seconds), then draw PTT every AM until heparin is discontinued. Vibha Ramirez MD LAB BLOOD ORDERABLES Fide l Result Performing Organization Address [facility] de Phone Number [facility] [place] [address] * (ABNORMAL) CBC with auto differential (12/02/2023 1:15 AM FRONT DESK OFFICER) [facility] WBC 5.2 3.8 - 9.9 K/cumm [facility] Hgb 7.1(L) 13.0 - 17.5 g/dL [facility] Hct 22.1(L) 38.9 - 50.3 % [facility] Plt 261 150 - 400 K/cumm [facility] MPV 10.2 9.1 - 12.3 fL [facility] RBC 2.33(L) 4.30 - 5.80 M/cumm [facility] MCV 94.8 81.3 - 96.4 fL [facility] MCH 30.5 27.1 - 33.3 pg [facility] MCHC 32.1(L) 32.3 - 35.7 g/dL [facility] RDW CV 15.2(H) 11.1 - 14.9 % [facility] RDW SD 52.8(H) 35.7 - 48.1 fL [facility] NRBC abs 0.00 0.00 - 0.01 K/cumm [facility] Blood 12/02/2023 1:15 AM FRONT DESK OFFICER 12/02/2023 1:46 AM FRONT DESK OFFICER Nicolas Dobbs MD LAB BLOOD ORDERABLE S Final Result Performing Organization Address City/[facility]/ZIP Co de Phone Number [facility] [place] [address] * Phosphorus (12/02/2023 1:15 AM FRONT DESK OFFICER) Phosphorus, pl 4.0 2.3 - 4.5 mg/dL [facility] Blood 12/02/2023 1:15 AM FRONT DESK OFFICER 12/02/2023 1:46 AM FRONT DESK OFFICER Nicolas Dobbs MD LAB BLOOD ORDERABLE S Final Result Performing Organization Address City/[facility] Co de Phone Number [facility] [place] [employer] [place] [address] * Magnesium (12/02/2023 1:15 AM FRONT DESK OFFICER) Magnesium 2.2 1.4 - 2.5 mg/dL [facility] Blood 12/02/2023 1:15 AM FRONT DESK OFFICER 12/02/2023 1:46 AM FRONT DESK OFFICER Nicolas Dobbs MD LAB BLOOD ORDERABLE S Final Result [facility] [place] [address] * (ABNORMAL) Hepatic function panel (12/02/2023 1:15 AM FRONT DESK OFFICER) Pathologist [facility] Bilirubin, total 0.2 0.1 - 1.2 mg/dL [facility] Bilirubin, direct <0.2 0.1 - 0.3 mg/dL [facility] Protein, pl 5.9(L) 6.5 - 8.5 g/dL [facility] Albumin 2.8(L) 3.5 - 5.0 g/dL [facility] Alk phos 129 40 - 130 Units/L [facility] ALT 50 7 - 55 Units/L [facility] AST 32 10 - 50 Units/L [facility] Blood 12/02/2023 1:15 AM FRONT DESK OFFICER 12/02/2023 1:46 AM FRONT DESK OFFICER Nicolas Dobbs MD LAB BLOOD ORDERABLE S Final Result [facility] [place] [address] * Basic metabolic panel (12/02/2023 1:15 AM FRONT DESK OFFICER) Pathologist [facility] Sodium 135 135 - 145 mmol/L [facility] Potassium, pl 4.3 3.3 - 4.9 mmol/L [facility] Chloride 103 97 - 110 mmol/L [facility] CO2 25 22 - 32 mmol/L [facility] Anion gap 7 2 - 15 mmol/L [facility] BUN 24 6 - 25 mg/dL [facility] Creatinine 1.00 0.80 - 1.30 mg/dL [facility] Glucose 94 70 - 199 mg/dL [facility] [...] 2022. Calcium 8.8 8.5 - 10.3 mg/dL [facility] Blood 12/02/2023 1:15 AM FRONT DESK OFFICER 12/02/2023 1:46 AM FRONT DESK OFFICER Nicolas Dobbs MD LAB BLOOD ORDERABLE S Final Result Performing Organization Address City/[facility] Co de Phone Number [facility] [place] [employer] [place] [address] * POCT glucose (12/01/2023 8:42 PM FRONT DESK OFFICER) Glucose, POC 129 70 - 199 mg/dL [facility] Blood 12/01/2023 8:42 PM FRONT DESK OFFICER 12/01/2023 8:42 PM FRONT DESK OFFICER Nicolas Dobbs MD LAB POCT ORDERABLES - DEVICE Final Result Performing Organization Address [facility] de Phone Number [facility] [employer] [place] [address] * (ABNORMAL) aPTT (12/01/2023 6:00 PM FRONT DESK OFFICER) aPTT 63(H) 28 - 38 sec [facility] Comment: Interpretive Data Heparin therapeutic range: 66.0 - 100.0 seconds. Range based on correlation with therapeutic heparin activity range of 0.3 - 0.7 Units/mL. Current interpretive data was last revised on 2023. Blood 12/01/2023 6:00 PM FRONT DESK OFFICER 12/01/2023 6:28 PM FRONT DESK OFFICER Nicolas Dobbs MD LAB BLOOD ORDERABLE S Final Result Performing Organization Address [facility] Co de Phone Number [facility] [place] [employer] [place] [address] * POCT glucose (12/01/2023 5:09 PM FRONT DESK OFFICER) [facility] Glucose, POC 118 70 - 199 mg/dL [facility] Blood 12/01/2023 5:09 PM FRONT DESK OFFICER 12/01/2023 5:09 PM FRONT DESK OFFICER Nicolas Dobbs MD LAB POCT ORDERABLES - DEVICE Final Result Performing Organization Address City/[facility]/ZIP Co de Phone Number [facility] Department [place] [address] * (ABNORMAL) CBC without differential (12/01/2023 12:35 PM FRONT DESK OFFICER) [facility] WBC 5.9 3.8 - 9.9 K/cumm [facility] Hgb 7.6(L) 13.0 - 17.5 g/dL [facility] Hct 23.4(L) 38.9 - 50.3 % [facility] Plt 219 150 - 400 K/cumm [facility] MPV 10.3 9.1 - 12.3 fL [facility] RBC 2.53(L) 4.30 - 5.80 M/cumm [facility] MCV 92.5 81.3 - 96.4 fL [facility] MCH 30.0 27.1 - 33.3 pg [facility] MCHC 32.5 32.3 - 35.7 g/dL [facility] RDW CV 15.1(H) 11.1 - 14.9 % [facility] RDW SD 51.3(H) 35.7 - 48.1 fL [facility] NRBC abs 0.00 0.00 - 0.01 K/cumm [facility] Blood 12/01/2023 12:3 5 PM FRONT DESK OFFICER 12/01/2023 12:40 PM FRONT DESK OFFICER Nicolas Dobbs MD LAB BLOOD ORDERABLE S Final Result [facility] Department [place] [address] * POCT glucose (12/01/2023 12:23 PM FRONT DESK OFFICER) Glucose, POC 118 70 - 199 mg/dL [facility] Blood 12/01/2023 12:2 3 PM FRONT DESK OFFICER 12/01/2023 12:23 PM FRONT DESK OFFICER Nicolas Dobbs MD LAB POCT ORDERABLES - DEVICE Final Result Performing Organization Address [facility] [place] [address] * (ABNORMAL) POCT glucose (12/01/2023 12:21 PM FRONT DESK OFFICER) Glucose, POC 283(H) 70 - 199 mg/dL [facility] Blood 12/01/2023 12:2 1 PM FRONT DESK OFFICER 12/01/2023 12:21 PM FRONT DESK OFFICER Nicolas Dobbs MD LAB POCT ORDERABLES - DEVICE Final Result Performing Organization Address [facility] [place] [address] * (ABNORMAL) aPTT (12/01/2023 12:15 PM FRONT DESK OFFICER) aPTT 39(H) 28 - 38 sec [facility] Comment: Interpretive Data Heparin therapeutic range: 66.0 - 100.0 seconds. Range based on correlation with therapeutic heparin activity range of 0.3 - 0.7 Units/mL. Current interpretive data was last revised on 2023. Blood 12/01/2023 12:1 5 PM FRONT DESK OFFICER 12/01/2023 12:47 PM FRONT DESK OFFICER Nicolas Dobbs MD LAB BLOOD ORDERABLE S Final Result Performing Organization Address [facility] de Phone Number [facility] [place] [address] * eGFR (12/01/2023 8:00 AM FRONT DESK OFFICER) Pathologist [facility] eGFR >90 >=60 mL/min/1. 73 m2 [facility] [...] last reviewed 2021. Blood 12/01/2023 8:00 AM FRONT DESK OFFICER 12/01/2023 12:48 PM FRONT DESK OFFICER us Nicolas Dobbs MD LAB BLOOD ORDERABLE S Final Result [facility]A [facility] [place] [address] * (ABNORMAL) Comprehensive metabolic panel (12/01/2023 8:00 AM FRONT DESK OFFICER) Pathologist [facility] Sodium 134(L) 135 - 145 mmol/L [facility] Potassium, pl 4.4 3.3 - 4.9 mmol/L [facility] Chloride 104 97 - 110 mmol/L [facility] CO2 22 22 - 32 mmol/L [facility] Anion gap 8 2 - 15 mmol/L [facility] BUN 23 6 - 25 mg/dL [facility] Creatinine 0.86 0.80 - 1.30 mg/dL [facility] Glucose 91 70 - 199 mg/dL [facility] [...] 2022. Calcium 8.1(L) 8.5 - 10.3 mg/dL [facility] Bilirubin, total 0.3 0.1 - 1.2 mg/dL [facility] Protein, pl 5.7(L) 6.5 - 8.5 g/dL [facility] Albumin 2.7(L) 3.5 - 5.0 g/dL [facility] Alk phos 123 40 - 130 Units/L [facility] ALT 55 7 - 55 Units/L [facility] AST 37 10 - 50 Units/L [facility] Blood 12/01/2023 8:00 AM FRONT DESK OFFICER 12/01/2023 12:48 PM FRONT DESK OFFICER us Nicolas Dobbs MD LAB BLOOD ORDERABLE S Final Result [facility] [place] [address] * POCT glucose (12/01/2023 7:14 AM FRONT DESK OFFICER) [facility] Glucose, POC 116 70 - 199 mg/dL [facility] Blood 12/01/2023 7:14 AM FRONT DESK OFFICER 12/01/2023 7:14 AM FRONT DESK OFFICER Nicolas Dobbs MD LAB POCT ORDERABLES - DEVICE Final Result Performing Organization Address [facility] Co de Phone Number [facility] [place] [address] * (ABNORMAL) aPTT (12/01/2023 4:40 AM FRONT DESK OFFICER) aPTT 43(H) 28 - 38 sec [facility] Comment: Interpretive Data Heparin therapeutic range: 66.0 - 100.0 seconds. Range based on correlation with therapeutic heparin activity range of 0.3 - 0.7 Units/mL. Current interpretive data was last revised on 2023. Blood 12/01/2023 4:40 AM FRONT DESK OFFICER 12/01/2023 5:42 AM FRONT DESK OFFICER Narrative [facility] - 12/01/2023 5:55 AM FRONT DESK OFFICER Draw STAT PTT 6 hrs after initiation of heparin infusion, draw STAT PTT 6 hours after each dose change, and every 6 hours until 2 consecutive PTTs are within therapeutic range. Once two consecutive PTT's are therapeutic (66-100 seconds), then draw PTT every AM until heparin is discontinued. Vibha Ramirez MD LAB BLOOD ORDERABLES Fide l Result Performing Organization Address [facility] Co de Phone Number [facility] [place] [address] * POCT glucose (11/30/2023 8:46 PM FRONT DESK OFFICER) Glucose, POC 122 70 - 199 mg/dL [facility] Blood 11/30/2023 8:46 PM FRONT DESK OFFICER 11/30/2023 8:46 PM FRONT DESK OFFICER Vibha Ramirez MD LAB POCT ORDERABLES - DEV ICE Final Result Performing Organization Address [facility] [place] [address] * aPTT (11/30/2023 8:44 PM FRONT DESK OFFICER) [facility] aPTT 28 28 - 38 sec [facility] Comment: Interpretive Data Heparin therapeutic range: 66.0 - 100.0 seconds. Range based on correlation with therapeutic heparin activity range of 0.3 - 0.7 Units/mL. Current interpretive data was last revised on 2023. Blood 11/30/2023 8:44 PM FRONT DESK OFFICER 11/30/2023 9:32 PM FRONT DESK OFFICER Narrative [facility] - 11/30/2023 9:41 PM FRONT DESK OFFICER Draw STAT PTT 6 hrs after initiation of heparin infusion, draw STAT PTT 6 hours after each dose change, and every 6 hours until 2 consecutive PTTs are within therapeutic range. Once two consecutive PTT's are therapeutic (66-100 seconds), then draw PTT every AM until heparin is discontinued. Vibha Ramirez MD LAB BLOOD ORDERABLES Fide l Result Performing Organization Address [facility] [place] [address] * POCT glucose (11/30/2023 4:22 PM FRONT DESK OFFICER) [facility] Glucose, POC 138 70 - 199 mg/dL [facility] Blood 11/30/2023 4:22 PM FRONT DESK OFFICER 11/30/2023 4:22 PM FRONT DESK OFFICER Vibha Ramirez MD LAB POCT ORDERABLES - DEV ICE Final Result Performing Organization Address [facility] [place] [address] * Urine culture Urine, clean voided (11/30/2023 2:48 PM FRONT DESK OFFICER) [facility] Report Final Report: Less than 100,000 colonies/mL (clinically insignificant growth based on current clinical standards) [facility] Organism (CLINICALLY INSIGNIFICANT GROWTH [facility] Urine, clean voided 11/30/2023 2:48 PM FRONT DESK OFFICER 11/30/2023 8:09 PM FRONT DESK OFFICER Narrative [facility] - 12/01/2023 10:25 PM FRONT DESK OFFICER Urine culture reflexed based upon urinalysis results. Testing performed by [facility] ([phone]) Vibha Ramirez MD LAB MICROBIOLOGY - GENERA L ORDERABLES Final Result Performing Organization Address [facility] Co de Phone Number [facility] [place] [address] * (ABNORMAL) Urinalysis, microscopic only (11/30/2023 2:48 PM FRONT DESK OFFICER) WBC, ur >50(A) 0 - 5 /HPF [facility] RBC, ur 21-50(A) 0 - 2 /HPF [facility] Epithelial cells, squamous, ur 11-20(A) 0 - 5 /HPF [facility] Comment:Suggestive of contam ination. Consider recollection by clean catch. Bacteria, ur 1+(A) [facility] Yeast, ur 1+(A) [facility] Mucous, ur Present(A) [facility] Culture Reflex Comment Reflex to urine culture will be performed. [facility] Urine, clean voided 11/30/2023 2:48 PM FRONT DESK OFFICER 11/30/2023 3:16 PM FRONT DESK OFFICER Vibha Ramirez MD LAB URINE ORDERABLES Fied l Result Performing Organization Address [facility] Co de Phone Number [facility] [place] [address] * (ABNORMAL) Urinalysis reflex to microscopic and culture Urine, clean voided (11/30/2023 2:48 PM FRONT DESK OFFICER) Color, ur Yellow Yellow [facility] Clarity, ur Cloudy(A) Clear [facility] Specific gravity, ur 1.029 1.003 - 1.030 [facility] pH, urine 6.5 [facility] Comment: Interpretive Data ? Urine pH is affected by diet, medications, systemic acid-base disturbances, and renal tubular function. ??pH may affect urinary stone formation. ??For example, urine pH below 6.0 may help reduce the tendency for calcium phosphate stones and pH greater than 6.0 may reduce the tendency for uric acid stone formation. Source: [facility] Current Interpretive Data was last revised on 2017 Protein, ur ql 1+(A) Negative [facility] Glucose, ur ql Negative Negative [facility] Ketones, ur Negative Negative [facility] Bilirubin, ur Negative Negative [facility] Blood, ur 1+(A) Negative [facility] Urobilinogen, ur <2.0 <2.0 mg/dL [facility] Nitrite, ur Negative Negative [facility] Leukocyte esterase, ur 3+(A) Negative [facility] UA reflex comment Reflex to microscopic UA will be performed. [facility] Urine, clean voided 11/30/2023 2:48 PM FRONT DESK OFFICER 11/30/2023 3:16 PM FRONT DESK OFFICER Vibha Ramirez MD LAB MICROBIOLOGY - GENERA L ORDERABLES Final Result Performing Organization Address [facility] Co de Phone Number [facility] [place] [employer] [place] [address] * POCT glucose (11/30/2023 11:59 AM FRONT DESK OFFICER) Glucose, POC 115 70 - 199 mg/dL [facility] Blood 11/30/2023 11:5 9 AM FRONT DESK OFFICER 11/30/2023 11:59 AM FRONT DESK OFFICER Vibha Ramirez MD LAB POCT ORDERABLES - DEV ICE Final Result Performing Organization Address [facility] Co de Phone Number [facility] [place] [address] * aPTT (11/30/2023 11:16 AM FRONT DESK OFFICER) aPTT 28 28 - 38 sec [facility] Comment: Interpretive Data Heparin therapeutic range: 66.0 - 100.0 seconds. Range based on correlation with therapeutic heparin activity range of 0.3 - 0.7 Units/mL. Current interpretive data was last revised on 2023. Blood 11/30/2023 11:1 6 AM FRONT DESK OFFICER 11/30/2023 12:30 PM FRONT DESK OFFICER Narrative [facility] - 11/30/2023 12:57 PM FRONT DESK OFFICER Baseline prior to heparin initiation us Vibha Ramirez MD LAB BLOOD ORDERABLES Fide rick Result [facility] One [facility] Department of Laboratories [place], [place] [id number] * US Vein Duplex Lower Extremity Bilateral Complete (11/30/2023 8:03 AM FRONT DESK OFFICER) Anatomical Region Laterality Modality Vascular Bilateral Ultrasound 11/30/2023 7:23 AM FRONT DESK OFFICER Narrative 12/01/2023 11:25 PM FRONT DESK OFFICER [facility] [employer] [facility] - Department of Vascular Surgery, Vascular Laboratory [address] [place] [id number] Lower Extremity Venous Ultrasound Report Patient Name: HIRA EVANS WILLIAM : 1950 (73y 5m) Study Date: 11/30/2023 7:23:48 AM Gender: M Tech: Location: [id number] Ref Provider: ERROL ESCOBAR ?Quality: Adequate Order [...] INDICATIONS: Swelling lower extremity, bilateral. FINDINGS: Performing Bread Molder: Josiane Chance RVT. Right: Duplex scan reveals [...] By: Shayan Jameson MD FACS 2023-12-01 23:25:38 FRONT DESK OFFICER Procedure Note Shayan Jameson MD - 12/01/2023 [employer] - Department of Vascular Surgery,Vascular Laboratory [address] [place] [address] Lower Extremity Venous Ultrasound Report Patient Name: HIRA EVANS WILLIAM : 1950 (73y 5m) Study Date: 11/30/2023 7:23:48 AM Gender: M Tech: Location: [id number] Ref Provider: ERROL ESCOBAR Quality: Adequate Order Provider: ERROL ESCOBAR PROCEDURES: Vascular Report: Venous Duplex imaging was performed bilaterally in the lower extremities.The common femoral, femoral, popliteal, posterior tibial, peroneal veins wereevaluated for patency, spontaneity and phasicity with Doppler, compression and augmentationmaneuvers. Great saphenous vein proximal at the junction was evaluated with compressionmaneuvers. INDICATIONS: Swelling lower extremity, bilateral. FINDINGS: Performing Bread Molder: Josiane Chance RVT. Right: Duplex scan reveals [...] above date to Vibha Ramirez MD. Time [id number]. CONCLUSIONS: 1. There is acute deep vein [...] By: Shayan Jameson MD FACS 2023-12-01 23:25:38 FRONT DESK OFFICER Errol Escobar MD [facility] US PROCEDURES Final R esult * POCT glucose (11/30/2023 7:51 AM FRONT DESK OFFICER) [facility] Glucose, POC 126 70 - 199 mg/dL [facility] Blood 11/30/2023 7:51 AM FRONT DESK OFFICER 11/30/2023 7:51 AM FRONT DESK OFFICER Vibha Ramirez MD LAB POCT ORDERABLES - DEV ICE Final Result [facility] [place] [address] * CT Abdomen Pelvis W Contrast (11/30/2023 1:49 AM FRONT DESK OFFICER) Anatomical Region Laterality Modality Body N/A Computed Tomogra phy 11/30/2023 8:21 AM FRONT DESK OFFICER Impressions 11/30/2023 8:21 AM FRONT DESK OFFICER 1. Somewhat limited evaluation of the systemic [...] Mayo M.D., Ph.D Narrative 11/30/2023 8:21 AM FRONT DESK OFFICER EXAMINATION: ??Computed tomography of the abdomen and [...] R esult * eGFR (11/30/2023 12:12 AM FRONT DESK OFFICER) eGFR >90 >=60 mL/min/1. 73 m2 [facility] [...] reviewed 2021. Blood 11/30/2023 12:1 2 AM FRONT DESK OFFICER 11/30/2023 1:25 AM FRONT DESK OFFICER us Errol Escobar MD LAB BLOOD ORDERABLES Fide rick Result [facility] One [facility] [place] [address] * Differential, auto (11/30/2023 12:12 AM FRONT DESK OFFICER) Pathologist [facility] Neutrophil abs 4.3 1.5 - 6.5 K/cumm [facility] Imm gran abs 0.1 0.0 - 0.1 K/cumm [facility] Lymphocyte abs 1.1 0.8 - 3.3 K/cumm [facility] Monocyte abs 0.4 0.2 - 0.8 K/cumm [facility] Eosinophil abs 0.3 0.0 - 0.5 K/cumm [facility] Basophil abs 0.0 0.0 - 0.1 K/cumm [facility] Neutrophil pct 69.7 % [facility] Comment: Interpretive Data Percent cell count reference ranges are not reported, since discordance with absolute values may lead to misinterpretation of CBC data. Current Interpretive Data was last revised on 2018. Imm gran pct 1.0 % [facility] Comment: Interpretive Data Percent cell count reference ranges are not reported, since discordance with absolute values may lead to misinterpretation of CBC data. Current Interpretive Data was last revised on 2018. Lymphocyte pct 17.1 % [facility] Comment: Interpretive Data Percent cell count reference ranges are not reported, since discordance with absolute values may lead to misinterpretation of CBC data. Current Interpretive Data was last revised on 2018. Monocyte pct 6.8 % [facility] Comment: Interpretive Data Percent cell count reference ranges are not reported, since discordance with absolute values may lead to misinterpretation of CBC data. Current Interpretive Data was last revised on 2018. Eosinophil pct 5.2 % [facility] Comment: Interpretive Data Percent cell count reference ranges are not reported, since discordance with absolute values may lead to misinterpretation of CBC data. Current Interpretive Data was last revised on 2018. Basophil pct 0.2 % [facility] Comment: Interpretive Data Percent cell count reference ranges are not reported, since discordance with absolute values may lead to misinterpretation of CBC data. Current Interpretive Data was last revised on 2018. Blood 11/30/2023 12:1 2 AM FRONT DESK OFFICER 11/30/2023 1:19 AM FRONT DESK OFFICER Errol Escobar MD LAB BLOOD ORDERABLES Fide l Result Performing Organization Address [facility] Co de Phone Number [facility] One [facility] [place] [address] * Osmolality, blood (11/30/2023 12:12 AM FRONT DESK OFFICER) Osmo 295 275 - 300 mOsm/kg [facility] Blood 11/30/2023 12:1 2 AM FRONT DESK OFFICER 11/30/2023 1:25 AM FRONT DESK OFFICER Errol Escobar MD LAB BLOOD ORDERABLES Fide l Result Performing Organization Address City/[facility] Co de Phone Number [facility] [place] [address] * Protime-INR (11/30/2023 12:12 AM FRONT DESK OFFICER) [facility] PT 11.8 10.3 - 13.7 sec [facility] INR 1.04 0.90 - 1.20 [facility] Comment: Interpretive data Oral anticoagulant therapeutic ranges: Venous thromboembolism prophylaxis or treatment: 2.0-3.0 CARDIOLOGY Standard range: 2.0-3.0 High-intensity range: 2.5-3.5 Refer to indication-specific guidelines for appropriate target ranges for prosthetic heart valve replacement. Current interpretive data was last revised on 2019. Blood 11/30/2023 12:1 2 AM FRONT DESK OFFICER 11/30/2023 1:48 AM FRONT DESK OFFICER Errol Escobar MD LAB BLOOD ORDERABLES Fide l Result Performing Organization Address City/[facility] Co de Phone Number [facility] [place] [address] * (ABNORMAL) Ferritin (11/30/2023 12:12 AM FRONT DESK OFFICER) [facility] Ferritin 1,240(H) 30 - 400 ng/mL [facility] Blood 11/30/2023 12:1 2 AM FRONT DESK OFFICER 11/30/2023 1:25 AM FRONT DESK OFFICER Errol Escobar MD LAB BLOOD ORDERABLES Fide l Result Performing Organization Address City/State/[facility] Co de Phone Number [facility] [employer] [place] [address] * (ABNORMAL) Iron profile w/ IBC (11/30/2023 12:12 AM FRONT DESK OFFICER) [facility] Iron 21(L) 50 - 150 mcg/dL [facility] TIBC 197(L) 250 - 400 mcg/dL [facility] Transferrin saturation 11(L) 20 - 50 % [facility] Blood 11/30/2023 12:1 2 AM FRONT DESK OFFICER 11/30/2023 1:25 AM FRONT DESK OFFICER Errol Escobar MD LAB BLOOD ORDERABLES Fide l Result Performing Organization Address [facility]/ZIP Co de Phone Number [facility] [place] [address] * Type and screen (11/30/2023 12:12 AM FRONT DESK OFFICER) [facility] Jigna, indirect Negative ABO Rh O Positive [facility] Blood 11/30/2023 12:1 2 AM FRONT DESK OFFICER 11/30/2023 1:29 AM FRONT DESK OFFICER Narrative [facility] - 11/30/2023 2:27 AM FRONT DESK OFFICER Has the patient had Daratumumab or Isatuximab in the past 6 months?->Unknown Errol Escobar MD LAB BLOOD BANK TEST ORDER CLEMENTINE Final Result Performing Organization Address [facility] Co de Phone Number [facility] Department [place] [address] * (ABNORMAL) CBC with auto differential (11/30/2023 12:12 AM FRONT DESK OFFICER) [facility] WBC 6.2 3.8 - 9.9 K/cumm [facility] Hgb 7.3(L) 13.0 - 17.5 g/dL [facility] Hct 22.5(L) 38.9 - 50.3 % [facility] Plt 158 150 - 400 K/cumm [facility] MPV 10.7 9.1 - 12.3 fL [facility] RBC 2.39(L) 4.30 - 5.80 M/cumm [facility] MCV 94.1 81.3 - 96.4 fL [facility] MCH 30.5 27.1 - 33.3 pg [facility] MCHC 32.4 32.3 - 35.7 g/dL [facility] RDW CV 14.9 11.1 - 14.9 % [facility] RDW SD 52.5(H) 35.7 - 48.1 fL [facility] NRBC abs 0.00 0.00 - 0.01 K/cumm [facility] Blood 11/30/2023 12:1 2 AM FRONT DESK OFFICER 11/30/2023 1:19 AM FRONT DESK OFFICER us Errol Escobar MD LAB BLOOD ORDERABLES Fide rick Result [facility] One [facility] [place] [address] * Pro B-type natriuretic peptide (11/30/2023 12:12 AM FRONT DESK OFFICER) NT-proBNP 105 <=300 pg/mL [facility] Comment: Interpretive Comments: A. Dyspnea in Acute [...] Date: 2018. Blood 11/30/2023 12:1 2 AM FRONT DESK OFFICER 11/30/2023 1:25 AM FRONT DESK OFFICER Errol Escobar MD LAB BLOOD ORDERABLES Fide l Result Performing Organization Address [facility] Co de Phone Number [facility] [place] [address] * Calcium, ionized (11/30/2023 12:12 AM FRONT DESK OFFICER) Calcium, Ionized 4.54 4.50 - 5.10 mg/dL [facility] Blood 11/30/2023 12:1 2 AM FRONT DESK OFFICER 11/30/2023 1:18 AM FRONT DESK OFFICER Errol Escobar MD LAB BLOOD ORDERABLES Fide l Result Performing Organization Address City/[facility] Co de Phone Number [facility] [place] [address] * Phosphorus (11/30/2023 12:12 AM FRONT DESK OFFICER) Phosphorus, pl 3.2 2.3 - 4.5 mg/dL [facility] Blood 11/30/2023 12:1 2 AM FRONT DESK OFFICER 11/30/2023 1:25 AM FRONT DESK OFFICER Errol Escobar MD LAB BLOOD ORDERABLES Fide l Result Performing Organization Address City/[facility]/ZIP Co de Phone Number [facility] [place] [address] * Magnesium (11/30/2023 12:12 AM FRONT DESK OFFICER) Pathologist [facility] Magnesium 2.1 1.4 - 2.5 mg/dL [facility] Blood 11/30/2023 12:1 2 AM FRONT DESK OFFICER 11/30/2023 1:25 AM FRONT DESK OFFICER Errol Escobar MD LAB BLOOD ORDERABLES Fide l Result Performing Organization Address [facility] de Phone Number [facility] [place] [address] * (ABNORMAL) Hepatic function panel (11/30/2023 12:12 AM FRONT DESK OFFICER) [facility] Bilirubin, total 0.2 0.1 - 1.2 mg/dL [facility] Bilirubin, direct <0.2 0.1 - 0.3 mg/dL [facility] Protein, pl 5.8(L) 6.5 - 8.5 g/dL [facility] Albumin 2.7(L) 3.5 - 5.0 g/dL [facility] Alk phos 140(H) 40 - 130 Units/L [facility] ALT 77(H) 7 - 55 Units/L [facility] AST 61(H) 10 - 50 Units/L [facility] Blood 11/30/2023 12:1 2 AM FRONT DESK OFFICER 11/30/2023 1:25 AM FRONT DESK OFFICER Errol Escobar MD LAB BLOOD ORDERABLES Fide l Result Performing Organization Address City/[facility] Co de Phone Number [facility] [place] [address] * (ABNORMAL) Basic metabolic panel (11/30/2023 12:12 AM FRONT DESK OFFICER) [facility] Sodium 132(L) 135 - 145 mmol/L [facility] Potassium, pl 4.7 3.3 - 4.9 mmol/L [facility] Chloride 98 97 - 110 mmol/L [facility] CO2 22 22 - 32 mmol/L [facility] Anion gap 12 2 - 15 mmol/L [facility] BUN 27(H) 6 - 25 mg/dL [facility] Creatinine 0.86 0.80 - 1.30 mg/dL [facility] Glucose 106 70 - 199 mg/dL [facility] [...] 2022. Calcium 8.6 8.5 - 10.3 mg/dL [facility] Blood 11/30/2023 12:1 2 AM FRONT DESK OFFICER 11/30/2023 1:25 AM FRONT DESK OFFICER Errol Escobar MD LAB BLOOD ORDERABLES Fide l Result [facility] One [facility] [place] [address] * (ABNORMAL) Urinalysis, microscopic only (11/29/2023 10:42 PM FRONT DESK OFFICER) Pathologist [facility] WBC, ur >50(A) 0 - 5 /HPF [facility] RBC, ur 21-50(A) 0 - 2 /HPF [facility] Bacteria, ur 3+(A) [facility] Urine 11/29/2023 10:4 2 PM FRONT DESK OFFICER 11/29/2023 11:09 PM FRONT DESK OFFICER Errol Escobar MD LAB URINE ORDERABLES Fide l Result Performing Organization Address [facility] de Phone Number [facility] [place] [address] * Sodium, urine, random (11/29/2023 10:42 PM FRONT DESK OFFICER) Sodium, ur <20 mmol/L [facility] Comment: Interpretive Data No reference range established. Current interpretive data was last revised 2019. Urine 11/29/2023 10:4 2 PM FRONT DESK OFFICER 11/29/2023 11:14 PM FRONT DESK OFFICER Errol Escobar MD LAB URINE ORDERABLES Fide l Result Performing Organization Address [facility] Phone Number [facility] [place] [address] * Creatinine, urine, random (11/29/2023 10:42 PM FRONT DESK OFFICER) Creatinine Ur 97.0 mg/dL [facility] Comment: Interpretive Data No reference range established. Current interpretive data was last revised 2019. Urine 11/29/2023 10:4 2 PM FRONT DESK OFFICER 11/29/2023 11:14 PM FRONT DESK OFFICER Errol Escobar MD LAB URINE ORDERABLES Fide l Result Performing Organization Address [facility] Phone Number [facility] [place] [address] * Osmolality, urine (11/29/2023 10:42 PM FRONT DESK OFFICER) Osmo, ur 556 mOsm/kg [facility] Urine 11/29/2023 10:4 2 PM FRONT DESK OFFICER 11/29/2023 11:14 PM FRONT DESK OFFICER Errol Escobar MD LAB URINE ORDERABLES Fide l Result [facility] [place] [address] * (ABNORMAL) Urinalysis reflex to microscopic (11/29/2023 10:42 PM FRONT DESK OFFICER) Color, ur Ling Yellow [facility] Clarity, ur Turbid(A) Clear [facility] Specific gravity, ur 1.023 1.003 - 1.030 [facility] pH, urine 6.5 [facility] Comment: Interpretive Data ? Urine pH is affected by diet, medications, systemic acid-base disturbances, and renal tubular function. ??pH may affect urinary stone formation. ??For example, urine pH below 6.0 may help reduce the tendency for calcium phosphate stones and pH greater than 6.0 may reduce the tendency for uric acid stone formation. Source: [facility] Current Interpretive Data was last revised on 2017 Protein, ur ql 3+(A) Negative [facility] Glucose, ur ql Negative Negative [facility] Ketones, ur Negative Negative [facility] Bilirubin, ur Negative Negative [facility] Blood, ur 2+(A) Negative [facility] Urobilinogen, ur <2.0 <2.0 mg/dL [facility] Nitrite, ur Negative Negative [facility] Leukocyte esterase, ur 3+(A) Negative [facility] UA reflex comment Reflex to microscopic UA will be performed. [facility] Urine 11/29/2023 10:4 2 PM FRONT DESK OFFICER 11/29/2023 11:09 PM FRONT DESK OFFICER Errol Escobar MD LAB URINE ORDERABLES Fide rick Result [facility] [place] [address] * POCT glucose (11/29/2023 7:56 PM FRONT DESK OFFICER) Glucose, POC 167 70 - 199 mg/dL [facility] Blood 11/29/2023 7:56 PM FRONT DESK OFFICER 11/29/2023 7:56 PM FRONT DESK OFFICER Errol Escobar MD LAB POCT ORDERABLES - DEV ICE Final Result [facility] [place] [address] * POCT glucose (11/29/2023 5:27 PM FRONT DESK OFFICER) Glucose, POC 115 70 - 199 mg/dL [facility] Blood 11/29/2023 5:27 PM FRONT DESK OFFICER 11/29/2023 5:27 PM FRONT DESK OFFICER Jolynn Cabrera MD LAB POCT ORDERABLES - DEVICE Final Result Performing Organization Address [facility] Co de Phone Number [facility] [place] [address] documented in this encounter Visit Diagnoses Diagnosis [...] 11/29/23 at 1945 Given 12/09/2023 8:10 AM FRONT DESK OFFICER 1,000 mg Given 12/09/2023 4:16 AM FRONT DESK OFFICER 1,000 mg Given 12/08/2023 8:54 PM FRONT DESK OFFICER 1,000 mg acetaminophen (TYLENOL) tablet 1,000 mg 1,000 mg, oral, Every 6 hours PRN, 1st line for pain, Starting on 12/09/23 at 1100 acyclovir (ZOVIRAX) tablet 400 mg 400 mg, oral, 2 times daily, First dose on Sun11/29/23 at 2100, Indications: Chronic SuppressionIndications:Chronic Suppression Given 12/10/2023 8:12 AM FRONT DESK OFFICER 4 00 mg Given 12/09/2023 8:48 PM FRONT DESK OFFICER 400 mg Given 12/09/2023 8:10 AM FRONT DESK OFFICER 400 mg calcium carbonate (TUMS) chewable tablet 1,000 mg 1,000 mg (400 mg of elemental calcium), oral, Once, On Sun12/03/23 at 1745, For 1 dose Given 12/03/2023 5:17 PM FRONT DESK OFFICER 1,000 mg cholecalciferol (VITAMIN D-3) capsule 5,000 Units 5,000 Units, oral, Every morning, First dose on Sun11/30/23 at 0900, Each capsule contains 5,000 units (125 mcg) of cholecalciferol,, Indications: Vitamin D DeficiencyIndications:Vitamin D Deficiency Given 12/10/2023 8:12 AM FRONT DESK OFFICER 5,000 Units Given 12/09/2023 8:10 AM FRONT DESK OFFICER 5,000 Units Given 12/08/2023 8:53 AM FRONT DESK OFFICER 5,000 Units dilTIAZem XR (CARDIZEM CD,DILACOR XR) 24 hour capsule 240 mg 240 mg, oral, 2 times daily, First dose on Sun11/29/23 at 2100, Do not crush, chew, cut, dissolve, open or otherwise manipulate tablet/capsule., Indications: hypertensionIndications:hypertension Given 12/10/2023 8:12 AM FRONT DESK OFFICER 240 mg Given 12/09/2023 8:48 PM FRONT DESK OFFICER 240 mg Given 12/09/2023 8:10 AM FRONT DESK OFFICER 240 mg enoxaparin (LOVENOX) syringe 80 mg 80 mg (rounded from 81.6 mg = 1 mg/kg ? 81.6 kg), subcutaneous, Every 12 hours scheduled, First dose on Sun12/05/23 at 2100, Indications: Venous ThrombosisIndications:Venous Thrombosis Given 12/10/2023 8:12 AM FRONT DESK OFFICER 80 mg Left Upper Abdomen Given 12/09/2023 8:48 PM FRONT DESK OFFICER 80 mg Le ft Lower Abdomen Given 12/09/2023 8:10 AM FRONT DESK OFFICER 80 mg Le ft Lower Abdomen furosemide (LASIX) 10 mg/mL injection 20 mg 20 mg, intravenous, Once, On Sun12/04/23 at 1615, For 1 dose, For IV push: administer doses < 160 mg at a rate of 20 -40 mg/min. Doses >/= 160 mg should be administered no faster than 4 mg/min. Room temperature only Given 12/04/2023 4:0 2 PM FRONT DESK OFFICER 20 mg furosemide (LASIX) 10 mg/mL injection 20 mg 20 mg, intravenous, 2 times daily (for diuretics), First dose (after last reorder) on Sun12/05/23 at 0900, For IV push: administer doses < 160 mg at a rate of 20 -40 mg/min. Doses >/= 160 mg should be administered no faster than 4 mg/min. Room temperature only Given 12/06/2023 8:5 2 AM FRONT DESK OFFICER 20 mg Given 12/05/2023 4:14 PM FRONT DESK OFFICER 20 mg Given 12/05/2023 10:30 AM FRONT DESK OFFICER 20 mg furosemide (LASIX) 10 mg/mL injection 20 mg 20 mg, intravenous, 2 times daily (for diuretics), First dose (after last modification) on Sun12/07/23 at 0900, For IV push: administer doses < 160 mg at a rate of 20 -40 mg/min. Doses >/= 160 mg should be administered no faster than 4 mg/min. Room temperature only Given 12/08/2023 8:53 AM FRONT DESK OFFICER 20 mg Given 12/07/2023 4:18 PM FRONT DESK OFFICER 20 mg Given 12/07/2023 9:34 AM FRONT DESK OFFICER 20 mg furosemide (LASIX) 10 mg/mL injection 40 mg 40 mg, intravenous, 2 times daily (for diuretics), First dose (after last modification) on Sun12/06/23 at 1600, For IV push: administer doses < 160 mg at a rate of 20 -40 mg/min. Doses >/= 160 mg should be administered no faster than 4 mg/min. Room temperature only Given 12/06/2023 3:39 PM FRONT DESK OFFICER 40 mg furosemide (LASIX) 10 mg/mL injection 40 mg 40 mg, intravenous, 2 times daily (for diuretics), First dose (after last modification) on 12/08/23 at 1600, For IV push: administer doses < 160 mg at a rate of 20 -40 mg/min. Doses >/= 160 mg should be administered no faster than 4 mg/min. Room temperature only Given 12/10/2023 8:12 AM FRONT DESK OFFICER 40 mg Given 12/09/2023 4:40 PM FRONT DESK OFFICER 40 mg Given 12/09/2023 8:12 AM FRONT DESK OFFICER 40 mg furosemide (LASIX) tablet 40 mg 40 mg, oral, 2 times daily (for diuretics), First dose on 12/10/23 at 1600 Given 12/10/2023 3:07 PM FRONT DESK OFFICER 40 mg gabapentin (NEURONTIN) tablet 600 mg 600 mg, oral, 3 times daily, First dose on Helene 11/29/23 at 2100, Indications: PainIndications:Pain Given 12/08/2023 8:54 PM FRONT DESK OFFICER 600 mg Given 12/08/2023 8:53 AM FRONT DESK OFFICER 600 mg Given 12/06/2023 8:51 AM FRONT DESK OFFICER 600 mg guaiFENesin (ROBITUSSIN) 20 mg/mL oral liquid 200 mg 200 mg, oral, 4 times daily PRN, cough, Starting on 12/08/23 at 2144 Given 12/08/2023 10:03 PM FRONT DESK OFFICER 200 mg heparin 1,000 unit/mL injection 3,000 Units 3,000 Units, intravenous, Every 6 hours PRN, PTT less than 46 seconds, Starting on Sun11/30/23 at 1103, Subsequent bolus during heparin infusion., Indications: Venous ThrombosisIndications:Venous Thrombosis Given 12/01/2023 2:[address] 3,000 Units Given 12/01/2023 6:14 AM FRONT DESK OFFICER 3,000 Units Given 11/30/2023 10:31 PM FRONT DESK OFFICER 3,000 Units heparin in 0.9% sodium chloride [...] ThrombosisIndications:Venous Thrombosis New Bag 12/04/2023 10:23 PM FRONT DESK OFFICER 23 Units/kg/hr 18.77 mL/hr New Bag 12/04/2023 7:09 AM FRONT DESK OFFICER 23 Units/kg/hr 18.77 mL/ hr Rate/Dose Verify 12/03/2023 11:15 PM FRONT DESK OFFICER 23 Units/kg/hr 18 .77 mL/hr ioversoL (OPTIRAY 350) injection 100 mL 100 mL, intravenous, Once in imaging, contrast, Starting on Sun11/30/23 at 0136, For 1 dose Contrast Given 11/30/2023 1:49 AM FRONT DESK OFFICER 88 mL levETIRAcetam (KEPPRA) tablet 1,000 mg 1,000 mg, oral, 2 times daily, First dose on Sun11/29/23 at 2100, May mix with 120 mL of enteral nutrition formula or disperse crushed tablets (500 mg tablet strength studied) in 10 mL of water, shake for 5 minutes to dissolve, and administer immediately via enteral feeding tube. Given 12/10/2023 8:12 AM FRONT DESK OFFICER 1,000 mg Given 12/09/2023 8:48 PM FRONT DESK OFFICER 1,000 mg Given 12/09/2023 8:10 AM FRONT DESK OFFICER 1,000 mg miconazole 2 % powder topical, 2 times daily, First dose on Sun11/29/23 at 2100, Apply to affected area: perineum Given 12/09/2023 9:07 PM FRONT DESK OFFICER Given 12/09/2023 8:12 AM FRONT DESK OFFICER Given 12/08/2023 10:12 PM FRONT DESK OFFICER nitrofurantoin monohydrate (MACROBID) capsule 100 mg 100 mg, oral, 2 times daily, First dose on Sun11/29/23 at 2100, Take with food, Indications: Urinary Tract/Genitourinary InfectionIndications:Urinary Tract/Genitourinary Infection Given 11/30/2023 8:01 AM FRONT DESK OFFICER 100 mg Given 11/29/2023 8:42 PM FRONT DESK OFFICER 100 mg ondansetron (ZOFRAN) injection 4 mg [...] Non-Bleeding Gastric Disorder Given 12/10/2023 8:12 AM FRONT DESK OFFICER 40 mg Given 12/09/2023 8:10 AM FRONT DESK OFFICER 40 mg Given 12/08/2023 8:53 AM FRONT DESK OFFICER 40 mg potassium chloride ER (KLOR-CON) extended release tablet 20 mEq 20 mEq, oral, Once, On Helene 12/06/23 at 1415, For 1 dose, Tablets should not be crushed, chewed, dissolved, or otherwise manipulated. Capsules may be opened and sprinkled on a spoonful of applesauce or pudding, but the contents of the capsule should not be crushed or chewed. Given 12/06/2023 3:39 PM FRONT DESK OFFICER 20 mEq ramelteon (ROZEREM) tablet 8 mg 8 mg, oral, Nightly PRN, sleep, Starting on Sun11/29/23 at 1901, Indications: Sleep-Onset InsomniaIndications:Sleep-Onset Insomnia Given 12/09/2023 8:49 PM FRONT DESK OFFICER 8 m g Given 12/08/2023 10:03 PM FRONT DESK OFFICER 8 mg Given 12/07/2023 3:58 AM FRONT DESK OFFICER 8 mg senna-docusate (PERICOLACE) 8.6-50 mg per tablet 1 tablet 1 tablet, oral, Nightly, First dose (after last modification) on Sun12/03/23 at 2100 Given 12/08/2023 8:54 PM FRONT DESK OFFICER 1 tablet Given 12/03/2023 8:28 PM FRONT DESK OFFICER 1 tablet senna-docusate (PERICOLACE) 8.6-50 mg per tablet 2 tablet 2 tablet, oral, 2 times daily, First dose (after last modification) on Sun11/29/23 at 2100 Given 12/02/2023 8:50 PM FRONT DESK OFFICER 2 tablets Given 12/02/2023 8:19 AM FRONT DESK OFFICER 2 tablets Given 12/01/2023 8:51 PM FRONT DESK OFFICER 2 tablets sodium chloride 0.9% IVPB 0-250 mL 0-250 mL, intravenous, Once, On Sun12/02/23 at 1145, For 1 dose, Prime blood tubing and administer amount needed to clear line (usually 50-100 mL) after transfusion complete. New Bag 12/02/2023 2:58 PM FRONT DESK OFFICER 250 mL sulfamethoxazole-trimethoprim (BACTRIM DS) 800-160 mg per tablet 160 mg of trimethoprim 160 mg of trimethoprim, oral, 2 times daily, First dose (after last modification) on Sun11/30/23 at 1230, For 7 days, Indications: Skin/Soft Tissue InfectionIndications:Skin/Sof t Tissue Infection Given 12/06/2023 8:56 PM FRONT DESK OFFICER 160 mg of trimethoprim Given 12/06/2023 8:51 AM FRONT DESK OFFICER 160 mg of trimethoprim Given 12/05/2023 10:13 PM FRONT DESK OFFICER 160 mg of trimethoprim tamsulosin (FLOMAX) extended release capsule 0.8 mg 0.8 mg, oral, Daily with dinner, First dose on Sun11/29/23 at 1945, Do not crush, chew, cut, dissolve, open or otherwise manipulate tablet/capsule. Given 12/09/2023 5:18 PM FRONT DESK OFFICER 0.8 mg Given 12/08/2023 4:37 PM FRONT DESK OFFICER 0.8 mg Given 12/07/2023 5:09 PM FRONT DESK OFFICER 0.8 mg traZODone (DESYREL) tablet 50 mg 50 mg, oral, Nightly PRN, sleep, 2nd line, Starting on Sun11/30/23 at 1104 Given 12/05/2023 12:47 AM FRONT DESK OFFICER 50 mg Given 12/02/2023 8:51 PM FRONT DESK OFFICER 50 mg Given 12/01/2023 8:54 PM FRONT DESK OFFICER 50 mg documented in this encounter Discontinued Medications Medication Sig Discontinue Reason Start Date End Da te cetirizine (ZyrTEC) 10 mg tabletIndications:All ergic Rhinitis Take 1 tablet (10 mg total) by mouth poultry 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 Scheduled Medication Order 12/08/2023 12/09/2023 12/10/2023 acetaminophen [...] 11/29/2023 documented in this encounter Care Teams Cable Braider Relationship Specialty Start Date End Date Rl Medina DO [address] [place] [address] PCP - General 08/09/17 05/25/24 documented as of this encounter
--- OUTSIDE RECORDS SUMMARY | 2024-11-05 22:59 | XMS_ITS | Encounter Summary ---
Author Organization [facility] Address [address] [place] [address] Phone Care Team Providers Care Pulp Screen Operator Name Role Phone Rl Medina DO Primary Care Provider Encounter Details Date Type Department Care Team (Late st Contact Info) Description 11/26/2023 Orders Only [facility] Orthopaedic Surgery [address] [facility] 2[address] [place] [id number] Alonso Schilling DO [address] [place] [address] Social History Tobacco Use Types Packs/Day Years Used Date Smoking Tobacco: Former Cigarettes 1 11 0 11/05/1968 - 11/05/1979 Passive Smoke Exposure: Past Smokeless Tobacco: Never Alcohol Use Standard Drinks/Week Comments Yes 14 (1 standard drink = 0.6 oz pu re alcohol) social [facility] Utilities Answer Date Recorded In the past 12 months has Contour, gas, oil, or water company threatened to [...] week 11/10/2023 How often do you attend [facility] or faith services? Never 11/10/2023 Do you belong to any clubs o r organizations such as samaritan groups, unions, fraternal or athletic groups, or [...] in a senior living (including now)? 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 Not on file Not on file documented as of this encounter Plan of Treatment Not on file documented as of this encounter Procedures Procedure Name Priority Date/Time Associated Diagnosis Comments CS GLUCOSE Routine Gen Lab 11/26/2023 1:55 PM PLASTER HELPER EGFR Routine Gen Lab 11/26/2023 1:55 PM PLASTER HELPER DIFFERENTIAL AUTO Routine Gen Lab 11/26/2023 1:5 5 PM PLASTER HELPER COMPREHENSIVE METABOLIC PANEL WITHOUT GLUCOSE (OUTREACH) Routine Gen Lab 11/26/2023 1:55 PM PLASTER HELPER CBC WITH AUTO DIFFERENTIAL Routine Gen Lab 11/26/2023 1:55 PM PLASTER HELPER documented in this encounter Results * eGFR (11/26/2023 1:55 PM PLASTER HELPER) eGFR 62 >=60 mL/min/1. 73 m2 LAURA [...] was last reviewed 2021. Testing performed by: [facility], [address] [place]., [address] Blood 11/26/2023 1:55 PM PLASTER HELPER 11/26/2023 6:29 PM PLASTER HELPER us Notinfile Unknown LAB BLOOD ORDERABLES Final Res ult [facility] [place] [address] * (ABNORMAL) Comprehensive metabolic panel, without glucose (Outreach) (11/26/2023 1:55 PM PLASTER HELPER) Sodium 129(L) 135 - 145 mmol/L [facility] Comment:Testing performed by : [facility], [address] [place]., [address] Potassium, pl 4.8 3.3 - 4.9 mmol/L [facility] Comment:Testing performed by : [facility], [address] [place]., [address] Chloride 94(L) 97 - 110 mmol/L [facility] Comment:Testing performed by : [facility], [address] [place]., [address] CO2 23 22 - 32 mmol/L [facility] Comment:Testing performed by : [facility], [address] [facility], [address] Anion gap 12 2 - 15 mmol/L [facility] Comment:Testing performed by : [facility], [address] [place]., [address] BUN 46(H) 6 - 25 mg/dL [facility] Comment:Testing performed by : [facility], [address] [facility], [address] Creatinine 1.24 0.80 - 1.30 mg/dL [facility] Comment:Testing performed by : [facility], [address] [facility], [address] Calcium 9.3 8.5 - 10.3 mg/dL [facility] Comment:Testing performed by : [facility], [address] [facility], [address] Protein, pl 6.2(L) 6.5 - 8.5 g/dL [facility] Comment:Testing performed by : [facility], [address] [facility], [address] Albumin 3.1(L) 3.5 - 5.0 g/dL [facility] Comment:Testing performed by : [facility], [address] [facility], [address] Bilirubin, total 0.3 0.1 - 1.2 mg/dL [facility] Comment:Testing performed by : [facility], [address] [facility], [address] Alk phos 139(H) 40 - 130 Units/L [facility] Comment:Testing performed by : [facility], [address] [facility], [address] AST 35 10 - 50 Units/L [facility] Comment:Testing performed by : [facility], [address] [place] [address], [address] ALT 50 7 - 55 Units/L [facility] Comment:Testing performed by : [facility], [address] [place] [address], [address] Blood 11/26/2023 1:55 PM PLASTER HELPER 11/26/2023 6:25 PM PLASTER HELPER us Notinfile Unknown LAB BLOOD ORDERABLES Final Res ult [facility] One [facility] Department [place] [address] * (ABNORMAL) Differential, auto (11/26/2023 1:55 PM PLASTER HELPER) Neutrophil abs 8.0(H) 1.5 - 6.5 K/cumm [facility] Comment:Testing performed by : [facility], [address] [place] [address]., [address] Imm gran abs 0.1 0.0 - 0.1 K/cumm [facility] Comment:Testing performed by : [facility], [address] [place] [address]., [address] Lymphocyte abs 0.7(L) 0.8 - 3.3 K/cumm [facility] Comment:Testing performed by : [facility], [address] [place] [address]., [address] Monocyte abs 0.7 0.2 - 0.8 K/cumm [facility] Comment:Testing performed by : [facility], [address] [place] [address]., [address] Eosinophil abs 0.3 0.0 - 0.5 K/cumm [facility] Comment:Testing performed by : [facility], [address] [place] [address]., [address] Basophil abs 0.0 0.0 - 0.1 K/cumm [facility] Comment:Testing performed by : [address] [address] Neutrophil pct 81.4 % [facility] Comment: Interpretive Data Percent cell count reference ranges are not reported, since discordance with absolute values may lead to misinterpretation of CBC data. Current Interpretive Data was last revised on 2018. Testing performed by: [facility], [address] [place] [address]., [address] Imm gran pct 0.9 % [facility] Comment: Interpretive Data Percent cell count reference ranges are not reported, since discordance with absolute values may lead to misinterpretation of CBC data. Current Interpretive Data was last revised on 2018. Testing performed by: [facility], [address] [place]., [address] Lymphocyte pct 7.5 % [facility] Comment: Interpretive Data Percent cell count reference ranges are not reported, since discordance with absolute values may lead to misinterpretation of CBC data. Current Interpretive Data was last revised on 2018. Testing performed by: [facility], [address] [place]., [address] Monocyte pct 7.4 % [facility] Comment: Interpretive Data Percent cell count reference ranges are not reported, since discordance with absolute values may lead to misinterpretation of CBC data. Current Interpretive Data was last revised on 2018. Testing performed by: [facility], [address] [place]., [address] Eosinophil pct 2.6 % [facility] Comment: Interpretive Data Percent cell count reference ranges are not reported, since discordance with absolute values may lead to misinterpretation of CBC data. Current Interpretive Data was last revised on 2018. Testing performed by: [facility], [address] [place]., [address] Basophil pct 0.2 % [facility] Comment: Interpretive Data Percent cell count reference ranges are not reported, since discordance with absolute values may lead to misinterpretation of CBC data. Current Interpretive Data was last revised on 2018. Testing performed by: [facility], [address] [place]., [address] Blood 11/26/2023 1:55 PM PLASTER HELPER 11/26/2023 6:25 PM PLASTER HELPER us Notinfile Unknown LAB BLOOD ORDERABLES Final Res ult [facility] Department [place] [address] * (ABNORMAL) CBC with auto differential (11/26/2023 1:55 PM PLASTER HELPER) [facility] WBC 9.8 3.8 - 9.9 K/cumm [facility] Comment:Testing performed by : [facility], [address] [facility], [address] Hgb 8.0(L) 13.0 - 17.5 g/dL [facility] Comment:Testing performed by : [facility], [address] [facility], [address] Hct 24.4(L) 38.9 - 50.3 % [facility] Comment:Testing performed by : [facility], [address] [facility], [address] Plt 135(L) 150 - 400 K/cumm [facility] Comment:Testing performed by : [facility], [address] [facility], [address] MPV 11.9 9.1 - 12.3 fL [facility] Comment:Testing performed by : [facility], [address] [facility], [address] RBC 2.53(L) 4.30 - 5.80 M/cumm [facility] Comment:Testing performed by : [facility], [address] [facility], [address] MCV 96.4 81.3 - 96.4 fL [facility] Comment:Testing performed by : [facility], [address] [facility], [address] MCH 31.6 27.1 - 33.3 pg [facility] Comment:Testing performed by : [facility], [address] [place] [address], [address] MCHC 32.8 32.3 - 35.7 g/dL [facility] Comment:Testing performed by : [facility], [address] [place] [address], [address] RDW CV 15.4(H) 11.1 - 14.9 % [facility] Comment:Testing performed by : [facility], [address] [place]., [address] RDW SD 54.5(H) 35.7 - 48.1 fL [facility] Comment:Testing performed by : [facility], [address] [place]., [address] NRBC abs 0.00 0.00 - 0.01 K/cumm [facility] Comment:Testing performed by : [facility], [address] [facility], [address] Blood 11/26/2023 1:55 PM PLASTER HELPER 11/26/2023 6:25 PM PLASTER HELPER us Notinfile Unknown LAB BLOOD ORDERABLES Final Res ult Performing Organization Address City/[facility]/ZIP Co de Phone Number [facility] Department [place] [address] * CS GLUCOSE (11/26/2023 1:55 PM PLASTER HELPER) [facility] Glucose 130 70 - 199 mg/dL [facility] Comment: Interpretive Data Fasting glucose [...] was last revised 2022. Testing performed by: [facility], [address] [place] [address]., [address] Blood 11/26/2023 1:55 PM PLASTER HELPER 11/26/2023 6:25 PM PLASTER HELPER us Notinfile Unknown LAB BLOOD ORDERABLES Final Res ult Performing Organization Address City/[facility]/ZIP Co de Phone Number [facility] Department [place] [address] documented in this encounter Visit Diagnoses Not on filedocumented in this encounter Care Teams Pulp Screen Operator Relationship Specialty Start Date End Date Rl Medina DO [address] [place] [address] PCP - General 08/09/17 05/25/24 documented as of this encounter
--- OUTSIDE RECORDS SUMMARY | 2024-11-05 22:59 | XMS_ITS | Encounter Summary ---
Author Organization [facility] Healthcare Address [address] [place] [address] Care Team Providers Care Director Pharmacovigilance Name Role Phone Rl Medina DO Primary Care Provider Encounter Details Date Type Department Care Team (Late st Contact Info) Description 11/17/2023 Orders Only [facility] Interim [phone] Unknown, Notinfile Social History Tobacco Use Types Packs/Day Years Used Date Smoking Tobacco: Former Cigarettes 1 11 0 11/05/1968 - 11/05/1979 Passive Smoke Exposure: Past Smokeless Tobacco: Never Alcohol Use Standard Drinks/Week Comments Yes 14 (1 standard drink = 0.6 oz pu re alcohol) social [facility] Utilities Answer Date Recorded In the past 12 months has [employer], gas, oil, or water [employer] threatened to shut off services in [...] attend chur ch or hinduism services? 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 on file Not on file documented as of this encounter Plan of Treatment Not on file documented as of this encounter Procedures Procedure Name Priority Date/Time Associated Diagnosis Comments CS GLUCOSE Routine Gen Lab 11/17/2023 6:05 AM COTTON MACHINE OPERATOR EGFR Routine Gen Lab 11/17/2023 6:05 AM COTTON MACHINE OPERATOR DIFFERENTIAL AUTO Routine Gen Lab 11/17/2023 6:0 5 AM COTTON MACHINE OPERATOR COMPREHENSIVE METABOLIC PANEL WITHOUT GLUCOSE (OUTREACH) Routine Gen Lab 11/17/2023 6:05 AM COTTON MACHINE OPERATOR CBC WITH AUTO DIFFERENTIAL Routine Gen Lab 11/17/2023 6:05 AM COTTON MACHINE OPERATOR VITAMIN D 25 HYDROXY Routine Gen Lab 11/17/2023 6:05 AM COTTON MACHINE OPERATOR documented in this encounter Results * eGFR (11/17/2023 6:05 AM COTTON MACHINE OPERATOR) eGFR >90 >=60 mL/min/1. 73 m2 [facility] Comment: Interpretive Data Reference Interval [...] was last reviewed 2021. Testing performed by: [facility], [address] [place]., [address] Blood 11/17/2023 6:05 AM COTTON MACHINE OPERATOR 11/17/2023 8:39 AM COTTON MACHINE OPERATOR us Notinfile Unknown LAB BLOOD ORDERABLES Final Res ult [facility] One [facility] Department [place] [address] * (ABNORMAL) Comprehensive metabolic panel, without glucose (Outreach) (11/17/2023 6:05 AM COTTON MACHINE OPERATOR) Sodium 137 135 - 145 mmol/L [facility] Comment:Testing performed by : [facility], [address] [place] [address]., [address] Potassium, pl 3.8 3.3 - 4.9 mmol/L [facility] Comment:Testing performed by : [facility], [address] [place] [address]., [address] Chloride 103 97 - 110 mmol/L [facility] Comment:Testing performed by : [facility], [address] [place]., [address] CO2 25 22 - 32 mmol/L [facility] Comment:Testing performed by : [facility], [address] [place]., [address] Anion gap 9 2 - 15 mmol/L [facility] Comment:Testing performed by : [facility], [address] [place] [address]., [address] BUN 30(H) 6 - 25 mg/dL [facility] Comment:Testing performed by : [facility], [address] [place]., [address] Creatinine 0.73(L) 0.80 - 1.30 mg/dL [facility] Comment:Testing performed by : [facility], [address] [place] [address] Calcium 7.9(L) 8.5 - 10.3 mg/dL [facility] Comment:Testing performed by : [facility], [address] [facility], [address] Protein, pl 5.4(L) 6.5 - 8.5 g/dL [facility] Comment:Testing performed by : [facility], [address] [facility], [address] Albumin 3.0(L) 3.5 - 5.0 g/dL [facility] Comment:Testing performed by : [facility], [address] [facility], [address] Bilirubin, total 0.3 0.1 - 1.2 mg/dL [facility] Comment:Testing performed by : [facility], [address] [facility], [address] Alk phos 105 40 - 130 Units/L [facility] Comment:Testing performed by : [facility], [address] [facility], [address] AST 31 10 - 50 Units/L [facility] Comment:Testing performed by : [facility], [address] [facility], [address] ALT 42 7 - 55 Units/L [facility] Comment:Testing performed by : [facility], [address] [place] [address], [address] Blood 11/17/2023 6:05 AM COTTON MACHINE OPERATOR 11/17/2023 8:29 AM COTTON MACHINE OPERATOR us Notinfile Unknown LAB BLOOD ORDERABLES Final Res ult [facility] One [facility] Department [place] [address] * Vitamin D 25 hydroxy (11/17/2023 6:05 AM COTTON MACHINE OPERATOR) Vitamin D 25-OH 50 30 - 80 ng/mL [facility] Comment:Testing performed by : [facility], [address] [place] [address]., [address] Blood 11/17/2023 6:05 AM COTTON MACHINE OPERATOR 11/17/2023 8:29 AM COTTON MACHINE OPERATOR us Notinfile Unknown LAB BLOOD ORDERABLES Final Res ult Performing Organization Address City/[facility] Co de Phone Number [facility] Department [place] [address] * CS GLUCOSE (11/17/2023 6:05 AM COTTON MACHINE OPERATOR) [facility] Glucose 108 70 - 199 mg/dL [facility] [...] was last revised 2022. Testing performed by: [facility], [address] [place] [address], [place]., [address] Blood 11/17/2023 6:05 AM COTTON MACHINE OPERATOR 11/17/2023 8:29 AM COTTON MACHINE OPERATOR us Notinfile Unknown LAB BLOOD ORDERABLES Final Res ult Performing Organization Address [facility] Co de Phone Number [facility] Department [place] [address] * (ABNORMAL) Differential, auto (11/17/2023 6:05 AM COTTON MACHINE OPERATOR) [facility] Neutrophil abs 9.9(H) 1.5 - 6.5 K/cumm [facility] Comment:Testing performed by : [facility], [address] [place]., [address] Imm gran abs 0.4(H) 0.0 - 0.1 K/cumm [facility] Comment:Testing performed by : [facility], [address] [place]., [address] Lymphocyte abs 1.9 0.8 - 3.3 K/cumm [facility] Comment:Testing performed by : [facility], [address] [place]., [address] Monocyte abs 1.1(H) 0.2 - 0.8 K/cumm [facility] Comment:Testing performed by : [facility], [address] [place] [address] Eosinophil abs 0.1 0.0 - 0.5 K/cumm [facility] Comment:Testing performed by : [facility], [address] [place]., [address] Basophil abs 0.0 0.0 - 0.1 K/cumm [facility] Comment:Testing performed by : [facility], [address] [place] [address] Neutrophil pct 73.9 % [facility] Comment: Interpretive Data Percent cell count reference ranges are not reported, since discordance with absolute values may lead to misinterpretation of CBC data. Current Interpretive Data was last revised on 2018. Testing performed by: [facility], [address] [place] [address] Imm gran pct 2.6 % [facility] Comment: Interpretive Data Percent cell count reference ranges are not reported, since discordance with absolute values may lead to misinterpretation of CBC data. Current Interpretive Data was last revised on 2018. Testing performed by: [facility], [address] [place] [address] Lymphocyte pct 14.4 % [facility] Comment: Interpretive Data Percent cell count reference ranges are not reported, since discordance with absolute values may lead to misinterpretation of CBC data. Current Interpretive Data was last revised on 2018. Testing performed by: [facility], [address] [place]., [address] Monocyte pct 8.5 % [facility] Comment: Interpretive Data Percent cell count reference ranges are not reported, since discordance with absolute values may lead to misinterpretation of CBC data. Current Interpretive Data was last revised on 2018. Testing performed by: [facility], [address] [place] [address] Eosinophil pct 0.4 % [facility] Comment: Interpretive Data Percent cell count reference ranges are not reported, since discordance with absolute values may lead to misinterpretation of CBC data. Current Interpretive Data was last revised on 2018. Testing performed by: [facility], [address] [place] [address] Basophil pct 0.2 % [facility] Comment: Interpretive Data Percent cell count reference ranges are not reported, since discordance with absolute values may lead to misinterpretation of CBC data. Current Interpretive Data was last revised on 2018. Testing performed by: [facility], [address] [place]., [address] Blood 11/17/2023 6:05 AM COTTON MACHINE OPERATOR 11/17/2023 8:29 AM COTTON MACHINE OPERATOR us Notinfile Unknown LAB BLOOD ORDERABLES Final Res ult [facility] One [facility] Department [place] [address] * (ABNORMAL) CBC with auto differential (11/17/2023 6:05 AM COTTON MACHINE OPERATOR) WBC 13.4(H) 3.8 - 9.9 K/cumm [facility] Comment:Testing performed by : [facility], [address] [place] [address]., [address] Hgb 9.1(L) 13.0 - 17.5 g/dL [facility] Comment:Testing performed by : [facility], [address] [facility], [address] Hct 27.4(L) 38.9 - 50.3 % [facility] Comment:Testing performed by : [facility], [address] [facility], [address] Plt 171 150 - 400 K/cumm [facility] Comment:Testing performed by : [facility], [address] [facility], [address] MPV 12.0 9.1 - 12.3 fL [facility] Comment:Testing performed by : [facility], [address] [facility], [address] RBC 2.90(L) 4.30 - 5.80 M/cumm [facility] Comment:Testing performed by : [facility], [address] [facility], [address] MCV 94.5 81.3 - 96.4 fL [facility] Comment:Testing performed by : [facility], [address] [facility], [address] MCH 31.4 27.1 - 33.3 pg [facility] Comment:Testing performed by : [facility], [address] [place] [address], [address] MCHC 33.2 32.3 - 35.7 g/dL [facility] Comment:Testing performed by : [facility], [address] [place] [address], [address] RDW CV 15.7(H) 11.1 - 14.9 % [facility] Comment:Testing performed by : [facility], [address] [facility], [address] RDW SD 52.8(H) 35.7 - 48.1 fL [facility] Comment:Testing performed by : [facility], [address] [facility], [address] NRBC abs 0.00 0.00 - 0.01 K/cumm [facility] Comment:Testing performed by : [facility], [address] [facility], [place]., [address] Blood 11/17/2023 6:05 AM COTTON MACHINE OPERATOR 11/17/2023 8:29 AM COTTON MACHINE OPERATOR us Notinfile Unknown LAB BLOOD ORDERABLES Final Res ult [facility] Department [place] [address] documented in this encounter Visit Diagnoses Not on filedocumented in this encounter Care Teams Director Pharmacovigilance Relationship Specialty Start Date End Date Rl Medina DO [address] [place], [place] [address] PCP - General 08/09/17 05/25/24 documented as of this encounter
--- OUTSIDE RECORDS SUMMARY | 2024-11-05 22:59 | XMS_ITS | Encounter Summary ---
Author Organization [facility] Healthcare Address [address] [place] [address] Care Team Providers Care Shank Stitcher Name Role Phone Rl Medina DO Primary Care Provider Encounter Details Date Type Department Care Team (Late st Contact Info) Description 11/21/2023 Orders Only [facility] Interim [phone] Unknown, Notinfile Social History Tobacco Use Types Packs/Day Years Used Date Smoking Tobacco: Former Cigarettes 1 11 0 11/05/1968 - 11/05/1979 Passive Smoke Exposure: Past Smokeless Tobacco: Never Alcohol Use Standard Drinks/Week Comments Yes 14 (1 standard drink = 0.6 oz pu re alcohol) social [facility] Utilities Answer Date Recorded In the past 12 months has [employer], gas, oil, or water [employer] threatened to shut off services in your [...] on file Legal Sex Male 9: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 TESTER Gender Identity Not on file Sexual Orientation Not on file 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 Not on file Not on file documented as of this encounter Plan of Treatment Not on file documented as of this encounter Procedures Procedure Name Priority Date/Time Associated Diagnosis Comments URINALYSIS AND REFLEX TO MICROSCOPIC AND CULTURE Routine Gen Lab 11/21/2023 6:57 PM HYBRID TESTER URINALYSIS, MICROSCOPIC ONLY Routine Gen Lab 11/21/2023 6:57 PM HYBRID TESTER URINE CULTURE Routine Gen Lab 11/21/2023 6:57 PM HYBRID TESTER documented in this encounter Results * (ABNORMAL) Urine culture Urine (11/21/2023 6:57 PM HYBRID TESTER) Report Final Report: Greater than or equal to 100,000 colonies/mL of Enterobacter cloacae complex (.) [facility] Comment:Testing performed by : [facility], [address] [facility], [place]., [address] Organism ENTEROBACTER CLOACAE COMPLEX [facility] Urine 11/21/2023 6:57 PM HYBRID TESTER 11/21/2023 10:40 PM HYBRID TESTER Narrative [facility] - 11/22/2023 4:16 PM HYBRID TESTER Urine culture reflexed based upon urinalysis results. Testing performed by [facility] Microbiology Laboratory ([phone]) Organism Antibiotic Method Susceptibility Enterobacter cloacae complex [...] - GENERAL ORD ERABLES Final Result [facility] One [facility] Department [place] [address] * (ABNORMAL) Urinalysis, microscopic only (11/21/2023 6:57 PM HYBRID TESTER) WBC, ur >50(A) 0 - 5 /HPF [facility] Comment:Testing performed by : [facility], [address] [facility], [address] RBC, ur >50(A) 0 - 2 /HPF [facility] Comment:Testing performed by : [facility], [address] [facility], [address] Bacteria, ur 1+(A) [facility] Comment:Testing performed by : [facility], [address] [facility], [address] Yeast, ur Trace(A) [facility] Comment:Testing performed by : [facility], [address] [facility], [address] Hyaline casts, ur 6-10 0 - 10 /LPF [facility] Comment:Testing performed by : [facility], [address] [place] [address], [address] Culture Reflex Comment Reflex to urine culture will be performed. [facility] Comment:Testing performed by : [facility], [address] [place] [address], [address] Urine 11/21/2023 6:57 PM HYBRID TESTER 11/21/2023 7:44 PM HYBRID TESTER us Notinfile Unknown LAB URINE ORDERABLES Final Res ult [facility] One [facility] Department [place] [address] * (ABNORMAL) Urinalysis reflex to microscopic and culture Urine (11/21/2023 6:57 PM HYBRID TESTER) Color, ur Yellow Yellow [facility] Comment:Testing performed by : [facility], [address] [facility], [address] Clarity, ur Turbid(A) Clear [facility] Comment:Testing performed by : [facility], [address] [place]., [address] Specific gravity, ur 1.023 1.003 - 1.030 [facility] Comment:Testing performed by : [facility], [address] [place] [address] pH, urine 6.0 [facility] Comment: Interpretive Data Urine pH is affected by diet, medications, systemic acid-base disturbances, and renal tubular function. ??pH may affect urinary stone formation. ??For example, urine pH below 6.0 may help reduce the tendency for calcium phosphate stones and pH greater than 6.0 may reduce the tendency for uric acid stone formation. Source: [facility] [employer] Current Interpretive Data was last revised on 2017 Testing performed by: [facility], [address] [place] [address]., [address] Protein, ur ql 2+(A) Negative [facility] Comment:Testing performed by : [facility], [address] [place] [address], [address] Glucose, ur ql Negative Negative [facility] Comment:Testing performed by : [facility], [address] [place] [address], [address] Ketones, ur Negative Negative [facility] Comment:Testing performed by : [facility], [address] [place] [address], [address] Bilirubin, ur Negative Negative [facility] Comment:Testing performed by : [facility], [address] [place] [address]., [address] Blood, ur 3+(A) Negative [facility] Comment:Testing performed by : [facility], [address] [place] [address]., [address] Urobilinogen, ur <2.0 <2.0 mg/dL [facility] Comment:Testing performed by : [facility], [address] [place] [address]., [address] Nitrite, ur Negative Negative [facility] Comment:Testing performed by : [facility], [address] [facility], [place]., [address] Leukocyte esterase, ur 3+(A) Negative [facility] Comment:Testing performed by : [facility], [address] [facility], [place]., [address] UA reflex comment Reflex to microscopic UA will be performed. [facility] Comment:Testing performed by : [facility], [address] [facility], [place]., [address] Urine 11/21/2023 6:57 PM HYBRID TESTER 11/21/2023 7:44 PM HYBRID TESTER Narrative [facility] - 11/21/2023 8:31 PM HYBRID TESTER Orthostasis us Notinfile Unknown LAB MICROBIOLOGY - GENERAL ORD ERABLES Final Result [facility] Department [place] [address] documented in this encounter Visit Diagnoses Not on filedocumented in this encounter Care Teams Shank Stitcher Relationship Specialty Start Date End Date Rl Medina DO [address] [place], [place] [address] PCP - General 08/09/17 05/25/24 documented as of this encounter
--- OUTSIDE RECORDS SUMMARY | 2024-11-05 22:59 | XMS_ITS | Encounter Summary ---
Author Organization [facility] Healthcare Address [address] [place] [address] Care Team Providers Care Data Analytics Specialist Name Role Phone Rl Medina DO Primary Care Provider [phone] Encounter Details Date Type Department Care Team (Late st Contact Info) Description 11/28/2023 Orders Only [facility] Interim [phone] Unknown, Notinfile Social History Tobacco Use Types Packs/Day Years Used Date Smoking Tobacco: Former Cigarettes 1 11 0 11/05/1968 - 11/05/1979 Passive Smoke Exposure: Past Smokeless Tobacco: Never Alcohol Use Standard Drinks/Week Comments Yes 14 (1 standard drink = 0.6 oz pu re alcohol) social [facility] Utilities Answer Date Recorded In the past 12 months has [employer], gas, oil, or water [employer] threatened to shut off services in your [...] attend chur ch or protestant services? 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 73 m2 [facility] Comment: Interpretive Data Reference Interval Normal ?>/= [...] reviewed 2021. Testing performed by: [facility], [address] [facility], [place]., [address] Blood 11/28/2023 7:15 AM WATER RESOURCE MANAGER 11/28/2023 12:55 PM WATER RESOURCE MANAGER us Notinfile Unknown LAB BLOOD ORDERABLES Final Res ult [facility] One [facility] Department [place] [address] * (ABNORMAL) CS BASIC METABOLIC PANEL (11/28/2023 7:15 AM WATER RESOURCE MANAGER) Sodium 132(L) 135 - 145 mmol/L [facility] Comment:Testing performed by : [facility], [address] [place] [address], [address] Potassium, pl 4.9 3.3 - 4.9 mmol/L [facility] Comment:Testing performed by : [facility], [address] [place] [address], [address] Chloride 98 97 - 110 mmol/L [facility] Comment:Testing performed by : [facility], [address] [place] [address], [address] CO2 23 22 - 32 mmol/L [facility] Comment:Testing performed by : [facility], [address] [facility], [address] Anion gap 11 2 - 15 mmol/L [facility] Comment:Testing performed by : [facility], [address] [facility], [address] BUN 36(H) 6 - 25 mg/dL [facility] Comment:Testing performed by : [facility], [address] [place] [address], [address] Creatinine 1.09 0.80 - 1.30 mg/dL [facility] Comment:Testing performed by : [facility], [address] [place] [address], [address] Calcium 9.3 8.5 - 10.3 mg/dL [facility] Comment:Testing performed by : [facility], [address] [place] [address], [address] Blood 11/28/2023 7:15 AM WATER RESOURCE MANAGER 11/28/2023 12:47 PM WATER RESOURCE MANAGER us Notinfile Unknown LAB BLOOD ORDERABLES Final Res ult Performing Organization Address [facility] Co de Phone Number [facility] Department [place] [address] * CS GLUCOSE (11/28/2023 7:15 AM WATER RESOURCE MANAGER) [facility] Signature Glucose 113 70 - 199 mg/dL [facility] Comment: Interpretive Data Fasting glucose >/= 126 [...] revised 2022. Testing performed by: [facility], [address] [facility], [place]., [address] Blood 11/28/2023 7:15 AM WATER RESOURCE MANAGER 11/28/2023 12:47 PM WATER RESOURCE MANAGER us Notinfile Unknown LAB BLOOD ORDERABLES Final Res ult Performing Organization Address [facility] de Phone Number [facility] [place] [place] [address] documented in this encounter Visit Diagnoses Not on filedocumented in this encounter Care Teams Data Analytics Specialist Relationship Specialty Start Date End Date Rl Medina DO [address] [place] [address] PCP - General 08/09/17 05/25/24 documented as of this encounter
--- OUTSIDE RECORDS SUMMARY | 2024-11-05 22:59 | XMS_ITS | Encounter Summary ---
Author Organization [facility] Healthcare Address [address] [place] [address] Care Team Providers Care Expanded Function Dental Assistant Name Role Phone Rl Medina DO Primary Care Provider [phone] Encounter Details Date Type Department Care Team (Late st Contact Info) Description 11/22/2023 Orders Only [facility] [phone] Unknown, Notinfile Social History Tobacco Use Types Packs/Day Years Used Date Smoking Tobacco: Former Cigarettes 1 11 0 11/05/1968 - 11/05/1979 Passive Smoke Exposure: Past Smokeless Tobacco: Never Alcohol Use Standard Drinks/Week Comments Yes 14 (1 standard drink = 0.6 oz pu re alcohol) social [facility] Utilities Answer Date Recorded In the past 12 months has [employer], gas, oil, or water [employer] threatened to shut off services in your [...] attend chur ch or scientology services? 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 Not on file Not on file documented as of this encounter Plan of Treatment Not on file documented as of this encounter Procedures Procedure Name Priority Date/Time Associated Diagnosis Comments CS GLUCOSE Routine Gen Lab 11/22/2023 6:36 AM COMPLIANCE AND CONTROL ANALYST EGFR Routine Gen Lab 11/22/2023 6:36 AM COMPLIANCE AND CONTROL ANALYST DIFFERENTIAL AUTO Routine Gen Lab 11/22/2023 6:3 6 AM COMPLIANCE AND CONTROL ANALYST COMPREHENSIVE METABOLIC PANEL WITHOUT GLUCOSE (OUTREACH) Routine Gen Lab 11/22/2023 6:36 AM COMPLIANCE AND CONTROL ANALYST CBC WITH AUTO DIFFERENTIAL Routine Gen Lab 11/22/2023 6:36 AM COMPLIANCE AND CONTROL ANALYST documented in this encounter Results * eGFR (11/22/2023 6:36 AM COMPLIANCE AND CONTROL ANALYST) eGFR 69 >=60 mL/min/1. 73 m2 [facility] [...] was last reviewed 2021. Testing performed by: [facility], [address] [place]., [address] Blood 11/22/2023 6:36 AM COMPLIANCE AND CONTROL ANALYST 11/22/2023 12:44 PM COMPLIANCE AND CONTROL ANALYST us Notinfile Unknown LAB BLOOD ORDERABLES Final Res ult [facility] [place] [address] * (ABNORMAL) Comprehensive metabolic panel, without glucose (Outreach) (11/22/2023 6:36 AM COMPLIANCE AND CONTROL ANALYST) Sodium 134(L) 135 - 145 mmol/L [facility] Comment:Testing performed by : [facility], [address] [facility], [address] Potassium, pl 4.3 3.3 - 4.9 mmol/L [facility] Comment:Testing performed by : [facility], [address] [facility], [address] Chloride 97 97 - 110 mmol/L [facility] Comment:Testing performed by : [facility], [address] [facility], [address] CO2 22 22 - 32 mmol/L [facility] Comment:Testing performed by : [facility], [address] [facility], [address] Anion gap 15 2 - 15 mmol/L [facility] Comment:Testing performed by : [facility], [address] [facility], [address] BUN 45(H) 6 - 25 mg/dL [facility] Comment:Testing performed by : [facility], [address] [facility], [address] Creatinine 1.13 0.80 - 1.30 mg/dL [facility] Comment:Testing performed by : [facility], [address] [facility], [address] Calcium 9.1 8.5 - 10.3 mg/dL [facility] Comment:Testing performed by : [facility], [address] [place]., [address] Protein, pl 6.3(L) 6.5 - 8.5 g/dL [facility] [place] Comment:Testing performed by : [facility], [address] [place]., [address] Albumin 3.2(L) 3.5 - 5.0 g/dL [facility] Comment:Testing performed by : [facility], [address] [facility], [address] Bilirubin, total 0.5 0.1 - 1.2 mg/dL [facility] Comment:Testing performed by : [facility], [address] [facility], [address] Alk phos 102 40 - 130 Units/L [facility] Comment:Testing performed by : [facility], [address] [facility], [address] AST 27 10 - 50 Units/L [facility] Comment:Testing performed by : [facility], [address] [place] [address], [address] ALT 36 7 - 55 Units/L [facility] Comment:Testing performed by : [facility], [address] [place] [address], [address] Blood 11/22/2023 6:36 AM COMPLIANCE AND CONTROL ANALYST 11/22/2023 11:50 AM COMPLIANCE AND CONTROL ANALYST us Notinfile Unknown LAB BLOOD ORDERABLES Final Res ult [facility] [place] [address] * CS GLUCOSE (11/22/2023 6:36 AM COMPLIANCE AND CONTROL ANALYST) Glucose 111 70 - 199 mg/dL [facility] Comment: Interpretive Data Fasting glucose [...] was last revised 2022. Testing performed by: [facility], [address] [place]., [address] Blood 11/22/2023 6:36 AM COMPLIANCE AND CONTROL ANALYST 11/22/2023 11:50 AM COMPLIANCE AND CONTROL ANALYST us Notinfile Unknown LAB BLOOD ORDERABLES Final Res ult [facility] [place] [address] * (ABNORMAL) Differential, auto (11/22/2023 6:36 AM COMPLIANCE AND CONTROL ANALYST) Neutrophil abs 9.6(H) 1.5 - 6.5 K/cumm [facility] Comment:Testing performed by : [facility], [address] [place] [address]., [address] Imm gran abs 0.1 0.0 - 0.1 K/cumm [facility] Comment:Testing performed by : [facility], [address] [place] [address]., [address] Lymphocyte abs 1.6 0.8 - 3.3 K/cumm [facility] Comment:Testing performed by : [facility], [address] [place] [address]., [address] Monocyte abs 1.1(H) 0.2 - 0.8 K/cumm [facility] Comment:Testing performed by : [facility], [address] [place]., [address] Eosinophil abs 0.4 0.0 - 0.5 K/cumm [facility] Comment:Testing performed by : [facility], [address] [place]., [address] Basophil abs 0.0 0.0 - 0.1 K/cumm [facility] Comment:Testing performed by : [facility], [address] [place]., [address] Neutrophil pct 74.1 % [facility] Comment: Interpretive Data Percent cell count reference ranges are not reported, since discordance with absolute values may lead to misinterpretation of CBC data. Current Interpretive Data was last revised on 2018. Testing performed by: [facility], [address] [place]., [address] Imm gran pct 1.1 % [facility] Comment: Interpretive Data Percent cell count reference ranges are not reported, since discordance with absolute values may lead to misinterpretation of CBC data. Current Interpretive Data was last revised on 2018. Testing performed by: [facility], [address] [place]., [address] Lymphocyte pct 12.7 % [facility] Comment: Interpretive Data Percent cell count reference ranges are not reported, since discordance with absolute values may lead to misinterpretation of CBC data. Current Interpretive Data was last revised on 2018. Testing performed by: [facility], [address] [place] [address]., [address] Monocyte pct 8.6 % [facility] Comment: Interpretive Data Percent cell count reference ranges are not reported, since discordance with absolute values may lead to misinterpretation of CBC data. Current Interpretive Data was last revised on 2018. Testing performed by: [facility], [address] [place]., [address] Eosinophil pct 3.3 % [facility] Comment: Interpretive Data Percent cell count reference ranges are not reported, since discordance with absolute values may lead to misinterpretation of CBC data. Current Interpretive Data was last revised on 2018. Testing performed by: [facility], [address] [place]., [address] Basophil pct 0.2 % [facility] Comment: Interpretive Data Percent cell count reference ranges are not reported, since discordance with absolute values may lead to misinterpretation of CBC data. Current Interpretive Data was last revised on 2018. Testing performed by: [facility], [address] [place]., [address] Blood 11/22/2023 6:36 AM COMPLIANCE AND CONTROL ANALYST 11/22/2023 11:50 AM COMPLIANCE AND CONTROL ANALYST us Notinfile Unknown LAB BLOOD ORDERABLES Final Res ult [facility] [place] [address] * (ABNORMAL) CBC with auto differential (11/22/2023 6:36 AM COMPLIANCE AND CONTROL ANALYST) WBC 12.9(H) 3.8 - 9.9 K/cumm [facility] Comment:Testing performed by : [facility], [address] [place] [address]., [address] Hgb 8.8(L) 13.0 - 17.5 g/dL [facility] Comment:Testing performed by : [facility], [address] [place]., [address] Hct 27.8(L) 38.9 - 50.3 % [facility] Comment:Testing performed by : [facility], [address] [place]., [address] Plt 110(L) 150 - 400 K/cumm [facility] Comment:Testing performed by : [facility], [address] [place] [address]., [address] MPV 12.4(H) 9.1 - 12.3 fL [facility] Comment:Testing performed by : [facility], [address] [facility], [address] RBC 2.83(L) 4.30 - 5.80 M/cumm [facility] [place] Comment:Testing performed by : [facility], [address] [facility], [address] MCV 98.2(H) 81.3 - 96.4 fL [facility] Comment:Testing performed by : [facility], [address] [facility], [address] MCH 31.1 27.1 - 33.3 pg [facility] Comment:Testing performed by : [facility], [address] [facility], [address] MCHC 31.7(L) 32.3 - 35.7 g/dL [facility] Comment:Testing performed by : [facility], [address] [facility], [address] RDW CV 16.0(H) 11.1 - 14.9 % [facility] Comment:Testing performed by : [facility], [address] [facility], [address] RDW SD 57.7(H) 35.7 - 48.1 fL [facility] Comment:Testing performed by : [facility], [address] [facility], [address] NRBC abs 0.00 0.00 - 0.01 K/cumm [facility] Comment:Testing performed by : [facility], [address] [place] [address], [address] Blood 11/22/2023 6:36 AM COMPLIANCE AND CONTROL ANALYST 11/22/2023 11:50 AM COMPLIANCE AND CONTROL ANALYST us Notinfile Unknown LAB BLOOD ORDERABLES Final Res ult [facility] [place] [address] documented in this encounter Visit Diagnoses Not on filedocumented in this encounter Care Teams Expanded Function Dental Assistant Relationship Specialty Start Date End Date Rl Medina DO [address] [place] [address] PCP - General 08/09/17 05/25/24 documented as of this encounter
--- OUTSIDE RECORDS SUMMARY | 2024-11-05 22:59 | XMS_ITS | Encounter Summary ---
Author Organization [facility] Address [address] [facility] [address] [place] [address] Phone Care Team Providers Care Research Administrator Name Role Phone Rl Medina DO Primary Care Provider Reason for Referral * Consultation (Routine) - Closed Specialty Diagnoses / Procedures Referred By Manisha gale Referred To Contact Hematology Diagnoses Hospital discharge follow-up Rae Weller NP [address] [place] [address] Phone: tel: fax: Tigre Way MD [address] [place] [address] Phone: tel: fax: Referral ID Status Reason Start Date Expiration Date V isits Requested Visits Authorized [id number] Closed Specialty Services Required 11/16/2023 11/04/2024 99 99 Question Answer Please select the performing region: [facility] (All Locations) [[id number]] Please select the performing department: [facility] [[phone]] To provider: TIGRE WAY [[id number]] # of visits: 1 Comments Hospital discharge f/u with Dr Way in about 2-3wks ICAL ENGINEERING PROFESSOR Encounter Details Date Type Department Care Team (Late st Contact Info) Description 11/16/2023 Orders Only [facility] Hematology [address] [facility] 7th [place] [address] [place] [address] Rae Weller, CARLA [address] [place] [address] Hospital discharge follow-up (Primary Dx) Social History Tobacco Use Types Packs/Day Years Used Date Smoking Tobacco: Former Cigarettes 1 11 0 11/05/1968 - 11/05/1979 Passive Smoke Exposure: Past Smokeless Tobacco: Never Alcohol Use Standard Drinks/Week Comments Yes 14 (1 standard drink = 0.6 oz pu re alcohol) social [facility] Utilities Answer Date Recorded In [...] attend chur ch or adventism services? Never 11/10/2023 Do you belong to [...] in a senior care (including now)? 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
--- OUTSIDE RECORDS SUMMARY | 2024-11-05 22:59 | XMS_ITS | Encounter Summary ---
Author Organization [facility] Address [address] [facility] [address] [place] [address] Phone Care Team Providers Care Conservation Scientist Name Role Phone Rl Medina DO Primary Care Provider Encounter Details Date Type Department Care Team (Late st Contact Info) Description 11/28/[address] [facility] Orthopaedic Surgery [address] [facility] 2nd Floor [address] [place] [address] Alonso Schilling DO [address] [place] [address] Social History Tobacco Use Types Packs/Day Years Used Date Smoking Tobacco: Former Cigarettes 1 11 0 11/05/1968 - 11/05/1979 Passive Smoke Exposure: Past Smokeless Tobacco: Never Alcohol Use Standard Drinks/Week Comments Yes 14 (1 standard drink = 0.6 oz pu re alcohol) social [facility] Utilities Answer Date Recorded In the past 12 months has [employer], gas, oil, or water [employer] threatened to shut off services in your [...] do you attend [facility] or [facility] services? 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
--- OUTSIDE RECORDS SUMMARY | 2024-11-05 22:59 | XMS_ITS | Encounter Summary ---
Author Organization [facility] Address [address] [facility] [address] [place] [address] Phone Care Team Providers Care Bee Farmer Name Role Phone Rl Medina DO Primary Care Provider Encounter Details Date Type Department Care Team (Late st Contact Info) Description 11/19/2023 Documentation [facility] Orthopaedic Surgery [address] [facility] 2nd Floor [address] [place] [address] Alonso Schilling DO [address] [place] [address] Social History Tobacco Use Types Packs/Day Years Used Date Smoking Tobacco: Former Cigarettes 1 11 0 11/05/1968 - 11/05/1979 Passive Smoke Exposure: Past Smokeless Tobacco: Never Alcohol Use Standard Drinks/Week Comments Yes 14 (1 standard drink = 0.6 oz pu re alcohol) social [facility] Utilities Answer Date Recorded In the past 12 months has [employer], gas, oil, or water [employer] threatened to shut off services in your [...] week 11/10/2023 How often do you attend [facility] or anglican services? Never 11/10/2023 Do you belong to [...] slept in a chcf (including now)? 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 Not on file Not [...] 2 tab, Oral, q6hr, Start 11/16/23 18:00:00 RECHARGER acyclovir 400 mg Tab 400 mg 1 tab, Oral, BID, Start 11/16/23 21:00:00 RECHARGER bisacodyl 10 mg Supp 10 mg 1 supp, Per rectum, QHS, Start 11/17/23 21:00:00 RECHARGER cholecalciferol (vitamin D3) 125 mcg (5000 units) tab 125 mcg 1 tab, Oral, QBREAKFAST, Start 11/17/23 7:30:00 RECHARGER diltiazem 240 mg/24 hours ERCap 240 mg 1 cap, Oral, BID, Start 11/16/23 21:00:00 RECHARGER docusate-senna 50 mg-8.6 mg Tab 2 tab, Oral, BID, Start 11/16/23 21:00:00 RECHARGER gabapentin 300 mg Cap 600 mg 2 cap, Oral, q8hr, Start 11/16/23 14:00:00 RECHARGER insulin lispro 100 units/mL (3mL MDV) sliding scale, Subcutaneous, WMHS, Start 11/16/23 17:00:00 RECHARGER levETIRAcetam 500 mg Tab 1,000 mg 2 tab, Oral, BID, Start 11/16/23 21:00:00 RECHARGER loratadine 10 mg Tab 10 mg 1 tab, Oral, Daily, Start 11/17/23 9:00:00 RECHARGER losartan 50 mg Tab 50 mg 1 tab, Oral, Daily, Start 11/17/23 9:00:00 RECHARGER nystatin 100,000 units/g Topical Powder (15gm Bulk) 1 tasha, Topical, BID, Start 11/18/23 21:00:00 RECHARGER pantoprazole [address] Tab 40 mg 1 tab, Oral, Before breakfast, Start 11/17/23 7:00:00 RECHARGER tamsulosin 0.4 mg Oral Cap 0.8 mg 2 cap, Oral, QDINNER, Start 11/16/23 17:00:00 RECHARGER Continuous: (0) PRN: (3) cyclobenzaprine 5 mg Tab 5 mg 1 tab, Oral, TID, Start 11/16/23 13:20:00 RECHARGER glucagon 1 mg Powder Injection Kit 1 mg 1 EA, Subcutaneous, As Indicated, Start 11/16/23 13:42:00 RECHARGER traMADol 50 mg Tab 50 mg 1 tab, Oral, q4hr, Start 11/16/23 13:24:00 RECHARGER Examination consistent with the following: Vital Signs [...] to acute care for emergent evaluation -RN supervisor irrigation to stay at bedside until transfer -Called [facility] emergency department at 12:43pm time and spoke wit ict development manager. Below is most recent comprehensive A/P Patient [...] ambulating with walker since 10/30/23discharge. Transferred to [facility], MRI with longitudinally extending dorsal epidural and subdural collection T5-T6 through L5-S1 causing severe canal stenosis and cauda equina compression. Underwent T5-L5 epidural hematoma evac (NSGY consulted for intraop durotomy repair). IVCF placed 11/[address] PE showing decreased clot burden. Patient s/p dex and had wound vac removed prior to discharge from [facility]. Discharged to [facility] on 11/16 instable condition. Patient [...] Status: Full code #. Discharge Planning: tbd ARGER ARGER documented in this encounter Plan of Treatment Not on file documented as of this encounter Visit Diagnoses Not on filedocumented in this encounter Care Teams Bee Farmer Relationship Specialty Start Date End Date Rl Medina DO [address] [place], [place] [address] PCP - General 08/09/17 05/25/24 documented as of this encounter
--- OUTSIDE RECORDS SUMMARY | 2024-11-05 22:59 | XMS_ITS | Encounter Summary ---
Author Organization [facility] Healthcare Address [address] [place] [address] Care Team Providers Care Contracts Director Name Role Phone Rl Medina DO Primary Care Provider Encounter Details Date Type Department Care Team (Late st Contact Info) Description 11/29/2023 Orders Only [facility] [phone] Unknown, Notinfile Social History Tobacco Use Types Packs/Day Years Used Date Smoking Tobacco: Former Cigarettes 1 11 0 11/05/1968 - 11/05/1979 Passive Smoke Exposure: Past Smokeless Tobacco: Never Alcohol Use Standard Drinks/Week Comments Yes 14 (1 standard drink = 0.6 oz pu re alcohol) social [facility] Utilities Answer Date Recorded In the past 12 months has [employer], gas, oil, or water [place] threatened to shut off services in your [...] slept in a detention (including now)? 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 Not on file Not on file documented as of this encounter Plan of Treatment Not on file documented as of this encounter Procedures Procedure Name Priority Date/Time Associated Diagnosis Comments CS GLUCOSE Routine Gen Lab 11/29/2023 7:17 AM BUSINESS CONTROL MANAGER EGFR Routine Gen Lab 11/29/2023 7:17 AM BUSINESS CONTROL MANAGER DIFFERENTIAL AUTO Routine Gen Lab 11/29/2023 7:1 7 AM BUSINESS CONTROL MANAGER COMPREHENSIVE METABOLIC PANEL WITHOUT GLUCOSE (OUTREACH) Routine Gen Lab 11/29/2023 7:17 AM BUSINESS CONTROL MANAGER CBC WITH AUTO DIFFERENTIAL Routine Gen Lab 11/29/2023 7:17 AM BUSINESS CONTROL MANAGER documented in this encounter Results * eGFR (11/29/2023 7:17 AM BUSINESS CONTROL MANAGER) eGFR 86 >=60 mL/min/1. 73 m2 [facility] [...] 2021. Testing performed by: [facility], [address] [place]., [address] Blood 11/29/2023 7:17 AM BUSINESS CONTROL MANAGER 11/29/2023 10:59 AM BUSINESS CONTROL MANAGER us Notinfile Unknown LAB BLOOD ORDERABLES Final Res ult [facility] One [facility] Department [place] [address] * (ABNORMAL) Comprehensive metabolic panel, without glucose (Outreach) (11/29/2023 7:17 AM BUSINESS CONTROL MANAGER) Sodium 133(L) 135 - 145 mmol/L [facility] Comment:Testing performed by : [facility], [address] [facility], [address] Potassium, pl 4.5 3.3 - 4.9 mmol/L [facility] Comment:Testing performed by : [facility], [address] [facility], [address] Chloride 99 97 - 110 mmol/L [facility] Comment:Testing performed by : [facility], [address] [facility], [address] CO2 24 22 - 32 mmol/L [facility] Comment:Testing performed by : [facility], [address] [facility], [address] Anion gap 10 2 - 15 mmol/L [facility] Comment:Testing performed by : [facility], [address] [facility], [address] BUN 29(H) 6 - 25 mg/dL [facility] Comment:Testing performed by : [facility], [address] [facility], [address] Creatinine 0.94 0.80 - 1.30 mg/dL [facility] Comment:Testing performed by : [facility], [address] [facility], [address] Calcium 8.9 8.5 - 10.3 mg/dL [facility] Comment:Testing performed by : [facility], [address] [facility], [address] Protein, pl 6.0(L) 6.5 - 8.5 g/dL [facility] Comment:Testing performed by : [facility], [address] [facility], [address] Albumin 2.8(L) 3.5 - 5.0 g/dL [facility] Comment:Testing performed by : [facility], [address] [facility], [address] Bilirubin, total 0.4 0.1 - 1.2 mg/dL [facility] Comment:Testing performed by : [facility], [address] [facility], [address] Alk phos 139(H) 40 - 130 Units/L [facility] Comment:Testing performed by : [facility], [address] [facility], [address] AST 65(H) 10 - 50 Units/L [facility] Comment:Testing performed by : [facility], [address] [facility], [address] ALT 80(H) 7 - 55 Units/L [facility] Comment:Testing performed by : [facility], [address] [place] [address], [address] Blood 11/29/2023 7:17 AM BUSINESS CONTROL MANAGER 11/29/2023 10:53 AM BUSINESS CONTROL MANAGER us Notinfile Unknown LAB BLOOD ORDERABLES Final Res ult [facility] One [facility] Department [place] [address] * CS GLUCOSE (11/29/2023 7:17 AM BUSINESS CONTROL MANAGER) [facility] Glucose 105 70 - 199 mg/dL [facility] Comment: Interpretive Data Fasting glucose >/= 126 [...] 2022. Testing performed by: [facility], [address] [place]., [address] Blood 11/29/2023 7:17 AM BUSINESS CONTROL MANAGER 11/29/2023 10:53 AM BUSINESS CONTROL MANAGER us Notinfile Unknown LAB BLOOD ORDERABLES Final Res ult [facility] One [facility] [place] [address] * Differential, auto (11/29/2023 7:17 AM BUSINESS CONTROL MANAGER) Neutrophil abs 6.1 1.5 - 6.5 K/cumm [facility] Comment:Testing performed by : [facility], [address] [place] [address]., [address] Imm gran abs 0.1 0.0 - 0.1 K/cumm [facility] Comment:Testing performed by : [facility], [address] [place]., [address] Lymphocyte abs 0.9 0.8 - 3.3 K/cumm [facility] Comment:Testing performed by : [facility], [address] [place]., [address] Monocyte abs 0.6 0.2 - 0.8 K/cumm [facility] Comment:Testing performed by : [facility], [address] [place]., [address] Eosinophil abs 0.4 0.0 - 0.5 K/cumm [facility] Comment:Testing performed by : [facility], [address] [place]., [address] Basophil abs 0.0 0.0 - 0.1 K/cumm [facility] Comment:Testing performed by : [facility], [address] [place]., [address] Neutrophil pct 75.7 % [facility] Comment: Interpretive Data Percent cell count reference ranges are not reported, since discordance with absolute values may lead to misinterpretation of CBC data. Current Interpretive Data was last revised on 2018. Testing performed by: [facility], [address] [place]., [address] Imm gran pct 1.1 % [facility] Comment: Interpretive Data Percent cell count reference ranges are not reported, since discordance with absolute values may lead to misinterpretation of CBC data. Current Interpretive Data was last revised on 2018. Testing performed by: [facility], [address] [place]., [address] Lymphocyte pct 11.5 % [facility] Comment: Interpretive Data Percent cell count reference ranges are not reported, since discordance with absolute values may lead to misinterpretation of CBC data. Current Interpretive Data was last revised on 2018. Testing performed by: [facility], [address] [place] [address]., [address] Monocyte pct 7.2 % [facility] Comment: Interpretive Data Percent cell count reference ranges are not reported, since discordance with absolute values may lead to misinterpretation of CBC data. Current Interpretive Data was last revised on 2018. Testing performed by: [facility], [address] [place]., [address] Eosinophil pct 4.3 % [facility] Comment: Interpretive Data Percent cell count reference ranges are not reported, since discordance with absolute values may lead to misinterpretation of CBC data. Current Interpretive Data was last revised on 2018. Testing performed by: [facility], [address] [place]., [address] Basophil pct 0.2 % [facility] Comment: Interpretive Data Percent cell count reference ranges are not reported, since discordance with absolute values may lead to misinterpretation of CBC data. Current Interpretive Data was last revised on 2018. Testing performed by: [facility], [address] [place]., [address] Blood 11/29/2023 7:17 AM BUSINESS CONTROL MANAGER 11/29/2023 10:53 AM BUSINESS CONTROL MANAGER us Notinfile Unknown LAB BLOOD ORDERABLES Final Res ult [facility] One [facility] [place] [address] * (ABNORMAL) CBC with auto differential (11/29/2023 7:17 AM BUSINESS CONTROL MANAGER) WBC 8.1 3.8 - 9.9 K/cumm [facility] Comment:Testing performed by : [facility], [address] [place] [address]., [address] Hgb 7.7(L) 13.0 - 17.5 g/dL [facility] Comment:Testing performed by : [facility], [address] [place] [address]., [address] Hct 23.9(L) 38.9 - 50.3 % [facility] Comment:Testing performed by : [facility], [address] [place] [address]., [address] Plt 150 150 - 400 K/cumm [facility] Comment:Testing performed by : [address] [address] MPV 10.7 9.1 - 12.3 fL [facility] Comment:Testing performed by : [facility], [address] [place] [address], [address] RBC 2.51(L) 4.30 - 5.80 M/cumm [facility] Comment:Testing performed by : [facility], [address] [place]., [address] MCV 95.2 81.3 - 96.4 fL [facility] Comment:Testing performed by : [facility], [address] [facility], [address] MCH 30.7 27.1 - 33.3 pg [facility] Comment:Testing performed by : [facility], [address] [facility], [address] MCHC 32.2(L) 32.3 - 35.7 g/dL [facility] Comment:Testing performed by : [facility], [address] [facility], [address] RDW CV 15.2(H) 11.1 - 14.9 % [facility] Comment:Testing performed by : [facility], [address] [facility], [address] RDW SD 52.6(H) 35.7 - 48.1 fL [facility] Comment:Testing performed by : [facility], [address] [facility], [address] NRBC abs 0.00 0.00 - 0.01 K/cumm [facility] Comment:Testing performed by : [facility], [address] [place] [address], [address] Blood 11/29/2023 7:17 AM BUSINESS CONTROL MANAGER 11/29/2023 10:53 AM BUSINESS CONTROL MANAGER us Notinfile Unknown LAB BLOOD ORDERABLES Final Res ult [facility] One [facility] Department [place] [address] documented in this encounter Visit Diagnoses Not on filedocumented in this encounter Care Teams Contracts Director Relationship Specialty Start Date End Date Rl Medina DO [address] [place] [address] PCP - General 08/09/17 05/25/24 documented as of this encounter
--- OUTSIDE RECORDS SUMMARY | 2024-11-05 22:59 | XMS_ITS | Encounter Summary ---
Author Organization [facility] Address [address] [place] [address] Phone Care Team Providers Care Alcohol Still Operator Name Role Phone Rl Medina DO Primary Care Provider Encounter Details Date Type Department Care Team (Late st Contact Info) Description 11/23/[address] [facility] Oncology [facility] 7th [place] [address] [place] [id number] Oz Elena MD [address] DIV MEDICAL ONCOLOGY, [address] [place] [address] Social History Tobacco Use Types Packs/Day Years Used Date Smoking Tobacco: Former Cigarettes 1 11 0 11/05/1968 - 11/05/1979 Passive Smoke Exposure: Past Smokeless Tobacco: Never Alcohol Use Standard Drinks/Week Comments Yes 14 (1 standard drink = 0.6 oz pu re alcohol) social [facility] Utilities Answer Date Recorded In the past 12 months has [employer], gas, oil, or water company threatened to [...] attend chur ch or hindu services? Never 11/10/2023 Do you belong to [...] slept in a fpc (including now)? 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 Mr Evans is a 73 y.o. male [...] filter placement 11/09/23. He was discharged to [facility] 11/16/23. Since then he had new LE [...] filter when it is no longer needed. E CARE PHYSICAL THERAPIST documented in this encounter Plan of Treatment Not on file documented as of this encounter Visit Diagnoses Not on filedocumented in this encounter Care Teams Alcohol Still Operator Relationship Specialty Start Date End Date Rl Medina DO [address] [place] [address] PCP - General 08/09/17 05/25/24 documented as of this encounter
--- OUTSIDE RECORDS SUMMARY | 2024-11-05 22:59 | XMS_ITS | Encounter Summary ---
Author Organization [facility] Address [address] [place] [address] Phone Care Team Providers Care Casting Repairer Name Role Phone Rl Medina DO Primary Care Provider Encounter Details Date Type Department Care Team (Late st Contact Info) Description 11/30/2023 7:05 AM PREFITTER DOORS Ancillary Procedure [facility] IP [address] [facility] [address] [place] [address] Social History Tobacco Use Types Packs/Day Years Used Date Smoking Tobacco: Former Cigarettes 1 11 0 11/05/1968 - 11/05/1979 Passive Smoke Exposure: Past Smokeless Tobacco: Never Alcohol Use Standard Drinks/Week Comments Yes 14 (1 standard drink = 0.6 oz pu re alcohol) social [facility] Utilities Answer Date Recorded In the past 12 months has [employer], gas, oil, or water [employer] threatened to shut off services in your [...] attend chur ch or spiritism services? 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 - Department of Vascular Surgery, Vascular Laboratory [address] [place] [address] Lower Extremity Venous Ultrasound Report Patient Name: HIRA EVANS WILLIAM : 1950 (73y 5m) Study Date: 11/30/2023 7:23:48 AM Gender: M Tech: Location: [id number] Ref Provider: GABRIEL ESCOBAR ?Quality: Adequate Order [...] INDICATIONS: Swelling lower extremity, bilateral. FINDINGS: Performing Mortgage Or Loan Underwriter: Josiane Chance RVT. Right: Duplex scan reveals [...] above. Electronically Signed By: Shayan Jameson MD [facility] 2023-12-01 23:25:38 PREFITTER DOORS Procedure Note Shayan Jameson MD - 12/01/[address] [facility] - Department of Vascular Surgery,Vascular Laboratory [address] [place] [address] Lower Extremity Venous Ultrasound Report Patient Name: HIRA EVANS WILLIAM : 1950 (73y 5m) Study Date: 11/30/2023 7:23:48 AM Gender: M Tech: Location: [id number] Ref Provider: GABRIEL ESCOBAR Quality: Adequate Order Provider: GABRIEL ESCOBAR PROCEDURES: Vascular Report: Venous Duplex imaging was performed bilaterally in the lower extremities.The common femoral, femoral, popliteal, posterior tibial, peroneal veins wereevaluated for patency, spontaneity and phasicity with Doppler, compression and augmentationmaneuvers. Great saphenous vein proximal at the junction was evaluated with compressionmaneuvers. INDICATIONS: Swelling lower extremity, bilateral. FINDINGS: Performing Mortgage Or Loan Underwriter: Josiane Chance RVT. Right: Duplex scan reveals [...] above date to Vibha Ramirez MD. Time [id number]. CONCLUSIONS: 1. There is acute deep vein [...] above. Electronically Signed By: Shayan Jameson MD [facility] 2023-12-01 23:25:38 PREFITTER DOORS Gabriel Escobar MD IM US PROCEDURES Final R esult documented in this encounter Visit Diagnoses Not on filedocumented in this encounter Care Teams Casting Repairer Relationship Specialty Start Date End Date Rl Medina DO [address] [place] [address] PCP - General 08/09/17 05/25/24 documented as of this encounter
--- OUTSIDE RECORDS SUMMARY | 2024-11-05 22:59 | XMS_ITS | Encounter Summary ---
Author Organization [facility] Healthcare Address [address] [place] [address] Care Team Providers Care Interlocker Maintainer Name Role Phone Rl Medina DO Primary Care Provider Encounter Details Date Type Department Care Team (Late st Contact Info) Description 11/19/2023 Orders Only [facility] [phone] Unknown, Notinfile Social History Tobacco Use Types Packs/Day Years Used Date Smoking Tobacco: Former Cigarettes 1 11 0 11/05/1968 - 11/05/1979 Passive Smoke Exposure: Past Smokeless Tobacco: Never Alcohol Use Standard Drinks/Week Comments Yes 14 (1 standard drink = 0.6 oz pu re alcohol) social AHC Utilities Answer Date Recorded In the past 12 months has [employer], gas, oil, or water [employer] threatened to shut off services in [...] chur ch or jehovah's witness services? 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 Not on file Not on file documented as of this encounter Plan of Treatment Not on file documented as of this encounter Procedures Procedure Name Priority Date/Time Associated Diagnosis Comments CS GLUCOSE Routine Gen Lab 11/19/2023 6:30 AM SHIRT SEWER EGFR Routine Gen Lab 11/19/2023 6:30 AM SHIRT SEWER DIFFERENTIAL AUTO Routine Gen Lab 11/19/2023 6:3 0 AM SHIRT SEWER COMPREHENSIVE METABOLIC PANEL WITHOUT GLUCOSE (OUTREACH) Routine Gen Lab 11/19/2023 6:30 AM SHIRT SEWER CBC WITH AUTO DIFFERENTIAL Routine Gen Lab 11/19/2023 6:30 AM SHIRT SEWER documented in this encounter Results * eGFR (11/19/2023 6:30 AM SHIRT SEWER) eGFR >90 >=60 mL/min/1. 73 m2 LAURA [...] last reviewed 2021. Testing performed by: [facility], [address] [place]., [address] Blood 11/19/2023 6:30 AM SHIRT SEWER 11/19/2023 12:08 PM SHIRT SEWER us Notinfile Unknown LAB BLOOD ORDERABLES Final Res ult [facility] One [facility] Department [place] [address] * (ABNORMAL) Comprehensive metabolic panel, without glucose (Outreach) (11/19/2023 6:30 AM SHIRT SEWER) Sodium 139 135 - 145 mmol/L [facility] Comment:Testing performed by : [facility], [address] [facility], [address] Potassium, pl 4.0 3.3 - 4.9 mmol/L [facility] Comment:Testing performed by : [facility], [address] [facility], [address] Chloride 99 97 - 110 mmol/L [facility] Comment:Testing performed by : [facility], [address] [facility], [address] CO2 26 22 - 32 mmol/L [facility] Comment:Testing performed by : [facility], [address] [facility], [address] Anion gap 14 2 - 15 mmol/L [facility] Comment:Testing performed by : [facility], [address] [facility], [address] BUN 24 6 - 25 mg/dL [facility] Comment:Testing performed by : [facility], [address] [facility], [address] Creatinine 0.65(L) 0.80 - 1.30 mg/dL [facility] Comment:Testing performed by : [facility], [address] [facility], [address] Calcium 8.5 8.5 - 10.3 mg/dL [facility] Comment:Testing performed by : [facility], [address] [place]., [address] Protein, pl 5.8(L) 6.5 - 8.5 g/dL [facility] Comment:Testing performed by : [facility], [address] [facility], [address] Albumin 3.2(L) 3.5 - 5.0 g/dL [facility] Comment:Testing performed by : [facility], [address] [facility], [address] Bilirubin, total 0.4 0.1 - 1.2 mg/dL [facility] Comment:Testing performed by : [facility], [address] [facility], [address] Alk phos 112 40 - 130 Units/L [facility] Comment:Testing performed by : [facility], [address] [facility], [address] AST 32 10 - 50 Units/L [facility] Comment:Testing performed by : [facility], [address] [place] [address], [address] ALT 46 7 - 55 Units/L [facility] Comment:Testing performed by : [facility], [address] [place] [address], [address] Blood 11/19/2023 6:30 AM SHIRT SEWER 11/19/2023 11:51 AM SHIRT SEWER us Notinfile Unknown LAB BLOOD ORDERABLES Final Res ult [facility] One [facility] Department [place] [address] * CS GLUCOSE (11/19/2023 6:30 AM SHIRT SEWER) Glucose 92 70 - 199 mg/dL [facility] Comment: Interpretive Data Fasting glucose [...] last revised 2022. Testing performed by: [facility], [address] [place]., [address] Blood 11/19/2023 6:30 AM SHIRT SEWER 11/19/2023 11:51 AM SHIRT SEWER us Notinfile Unknown LAB BLOOD ORDERABLES Final Res ult [facility] One [facility] Department [place] [address] * (ABNORMAL) Differential, auto (11/19/2023 6:30 AM SHIRT SEWER) Neutrophil abs 9.1(H) 1.5 - 6.5 K/cumm [facility] Comment:Testing performed by : [facility], [address] [place] [address]., [address] Imm gran abs 0.3(H) 0.0 - 0.1 K/cumm [facility] Comment:Testing performed by : [facility], [address] [place] [address]., [address] Lymphocyte abs 2.3 0.8 - 3.3 K/cumm [facility] Comment:Testing performed by : [facility], [address] [place] [address]., [address] Monocyte abs 0.9(H) 0.2 - 0.8 K/cumm [facility] Comment:Testing performed by : [facility], [address] [place]., [address] Eosinophil abs 0.5 0.0 - 0.5 K/cumm [facility] Comment:Testing performed by : [facility], [address] [place]., [address] Basophil abs 0.0 0.0 - 0.1 K/cumm [facility] Comment:Testing performed by : [facility], [address] [place]., [address] Neutrophil pct 69.1 % [facility] Comment: Interpretive Data Percent cell count reference ranges are not reported, since discordance with absolute values may lead to misinterpretation of CBC data. Current Interpretive Data was last revised on 2018. Testing performed by: [facility], [address] [place]., [address] Imm gran pct 2.4 % [facility] Comment: Interpretive Data Percent cell count reference ranges are not reported, since discordance with absolute values may lead to misinterpretation of CBC data. Current Interpretive Data was last revised on 2018. Testing performed by: [facility], [address] [place]., [address] Lymphocyte pct 17.8 % [facility] Comment: Interpretive Data Percent cell count reference ranges are not reported, since discordance with absolute values may lead to misinterpretation of CBC data. Current Interpretive Data was last revised on 2018. Testing performed by: [facility], [address] [place] [address]., [address] Monocyte pct 6.6 % [facility] Comment: Interpretive Data Percent cell count reference ranges are not reported, since discordance with absolute values may lead to misinterpretation of CBC data. Current Interpretive Data was last revised on 2018. Testing performed by: [facility], [address] [place]., [address] Eosinophil pct 3.9 % [facility] Comment: Interpretive Data Percent cell count reference ranges are not reported, since discordance with absolute values may lead to misinterpretation of CBC data. Current Interpretive Data was last revised on 2018. Testing performed by: [facility], [address] [place] [address] [place]., [address] Basophil pct 0.2 % [facility] Comment: Interpretive Data Percent cell count reference ranges are not reported, since discordance with absolute values may lead to misinterpretation of CBC data. Current Interpretive Data was last revised on 2018. Testing performed by: [facility], [address] [place]., [address] Blood 11/19/2023 6:30 AM SHIRT SEWER 11/19/2023 11:51 AM SHIRT SEWER us Notinfile Unknown LAB BLOOD ORDERABLES Final Res ult [facility] One [facility] Department [place] [address] * (ABNORMAL) CBC with auto differential (11/19/2023 6:30 AM SHIRT SEWER) WBC 13.2(H) 3.8 - 9.9 K/cumm [facility] Comment:Testing performed by : [facility], [address] [place] [address], [address] Hgb 10.2(L) 13.0 - 17.5 g/dL [facility] Comment:Testing performed by : [facility], [address] [place] [address]., [address] Hct 32.2(L) 38.9 - 50.3 % [facility] Comment:Testing performed by : [facility], [address] [place] [address]., [address] Plt 177 150 - 400 K/cumm [facility] Comment:Testing performed by : [facility], [address] [place] [address]., [address] MPV 11.8 9.1 - 12.3 fL [facility] Comment:Testing performed by : [facility], [address] [place] [address], [address] RBC 3.26(L) 4.30 - 5.80 M/cumm [facility] Comment:Testing performed by : [facility], [address] [place]., [address] MCV 98.8(H) 81.3 - 96.4 fL [facility] Comment:Testing performed by : [facility], [address] [facility], [address] MCH 31.3 27.1 - 33.3 pg [facility] Comment:Testing performed by : [facility], [address] [facility], [address] MCHC 31.7(L) 32.3 - 35.7 g/dL [facility] Comment:Testing performed by : [facility], [address] [facility], [address] RDW CV 16.5(H) 11.1 - 14.9 % [facility] Comment:Testing performed by : [facility], [address] [facility], [address] RDW SD 59.0(H) 35.7 - 48.1 fL [facility] Comment:Testing performed by : [facility], [address] [facility], [address] NRBC abs 0.00 0.00 - 0.01 K/cumm [facility] Comment:Testing performed by : [facility], [address] [place] [address], [address] Blood 11/19/2023 6:30 AM SHIRT SEWER 11/19/2023 11:51 AM SHIRT SEWER us Notinfile Unknown LAB BLOOD ORDERABLES Final Res ult [facility] One [facility] Department [place] [address] documented in this encounter Visit Diagnoses Not on filedocumented in this encounter Care Teams Interlocker Maintainer Relationship Specialty Start Date End Date Rl Medina DO [address] [place] [address] PCP - General 08/09/17 05/25/24 documented as of this encounter
--- OUTSIDE RECORDS SUMMARY | 2024-11-05 22:59 | XMS_ITS | Encounter Summary ---
Author Organization [facility] Address [address] [place] [address] Phone Care Team Providers Care Pitch Gatherer Name Role Phone Rl Medina DO Primary Care Provider Encounter Details Date Type Department Care Team (Late st Contact Info) Description 11/23/2023 Documentation [facility] Orthopaedic Surgery [address] [facility] [address] [place] [address] Marcial Vu Jr., MD [address] [facility] [place] [address] Social History Tobacco Use Types Packs/Day Years Used Date Smoking Tobacco: Former Cigarettes 1 11 0 11/05/1968 - 11/05/1979 Passive Smoke Exposure: Past Smokeless Tobacco: Never Alcohol Use Standard Drinks/Week Comments Yes 14 (1 standard drink = 0.6 oz pu re alcohol) social [facility] Utilities Answer Date Recorded In the past 12 months has [email or web address], gas, oil, or water company threatened [...] attend chur ch or baptism services? 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 Marcial Vu Jr., MD Ingredient Scaler Department of Orthopaedic Surgery Division of Spine Surgery [facility] [place], [place] BLOCK MAKER documented in this encounter Plan of Treatment Not on file documented as of this encounter Visit Diagnoses Not on filedocumented in this encounter Care Teams Pitch Gatherer Relationship Specialty Start Date End Date Rl Medina DO [address] [place] [address] PCP - General 08/09/17 05/25/24 documented as of this encounter
--- OUTSIDE RECORDS SUMMARY | 2024-11-05 22:59 | XMS_ITS | Encounter Summary ---
Author Organization [facility] Address [address] [place] [address] Phone Care Team Providers Care Casing Fluid Tender Name Role Phone Rl Medina DO Primary Care Provider Encounter Details Date Type Department Care Team (Late st Contact Info) Description 11/23/2023 Telephone [facility] Orthopaedic Surgery [address] [facility] 1st Floor [address] [place] [address] Marcial Vu Jr., MD [address] [facility] [place] [address] Social History Tobacco Use Types Packs/Day Years Used Date Smoking Tobacco: Former Cigarettes 1 11 0 11/05/1968 - 11/05/1979 Passive Smoke Exposure: Past Smokeless Tobacco: Never Alcohol Use Standard Drinks/Week Comments Yes 14 (1 standard drink = 0.6 oz pu re alcohol) social AHC Utilities Answer Date Recorded In the past 12 months has [employer] electric, gas, oil, or water company threatened [...] attend chur ch or cheondoism services? 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 oTnie MD at [facility] where pt currently resides. Dr. Schilling states [...] with plan. Message sent to Dr. Vu. TRIMMER documented in this encounter Plan of Treatment Not on file documented as of this encounter Visit Diagnoses Not on filedocumented in this encounter Care Teams Casing Fluid Tender Relationship Specialty Start Date End Date Rl Medina DO [address] [place] [address] PCP - General 08/09/17 05/25/24 documented as of this encounter
--- OUTSIDE RECORDS SUMMARY | 2024-11-05 22:59 | XMS_ITS | Encounter Summary ---
Author Organization [facility] Healthcare Address [address] [place] [address] Care Team Providers Care Windshield Installer Name Role Phone Rl Medina DO Primary Care Provider Reason for Visit * Reason Comments Chart Review Encounter Details Date Type Department Care Team (Late st Contact Info) Description 11/16/2023 SHOP/CHAP Subsequent Outreach [facility] OP CASE MANAGEMENT [address] [place] [address] Marlen Gray RN [address] [employer] [address] [place], [place] [id number] Social History Tobacco Use Types Packs/Day Years Used Date Smoking Tobacco: Former Cigarettes 1 11 0 11/05/1968 - 11/05/1979 Passive Smoke Exposure: Past Smokeless Tobacco: Never Alcohol Use Standard Drinks/Week Comments Yes 14 (1 standard drink = 0.6 oz pu re alcohol) social C Utilities Answer Date Recorded In the past 12 months has [employer], gas, oil, or water [employer] threatened to shut off services in your [...] week 11/10/2023 How often do you attend [facility] or taoism services? 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 Patient is no longer eligible for SHOP due to transferring to post-acute care facility. SHOP episode resolved. TAL LEARNING PLATFORMS MANAGER documented in this encounter Plan of Treatment Not on file documented as of this encounter Visit Diagnoses Not on filedocumented in this encounter Care Teams Windshield Installer Relationship Specialty [place] [address] [place] [address] PCP - General 08/09/17 05/25/24 documented as of this encounter
--- OUTSIDE RECORDS SUMMARY | 2024-11-05 22:59 | XMS_ITS | Encounter Summary ---
Author Organization [facility] Healthcare Address [address] [place] [address] Care Team Providers Care Supervisor Solder Making Name Role Phone Rl Medina DO Primary Care Provider Reason for Visit * Reason Comments Blood in Urine Encounter Details Date Type Department Care Team (Late st Contact Info) Description 11/19/2023 2:09 PM HEALTH ADVISOR - 11/19/2023 7:38 PM HEALTH ADVISOR Emergency [facility] Emergency Department [address] [place] [address] Mary Costa MD [address] [facility] [phone] [place] [address] Ruperto Hitchcock MD [address] [place] [address] Hematuria, unspecified type (Primary Dx); Displacement of [...] oz pu re alcohol) social [facility] Utilities Answer Date Recorded In the past 12 months has [employer], gas, oil, or water [facility] threatened to shut off services in your [...] file Legal Sex Male 9:07 PM HEALTH ADVISOR Gender Identity Not on file Sexual Orientation Not on file 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 Not on file Not on file documented as of this encounter Last Filed Vital Signs Vital Sign Reading Time Taken Comments Blood Pressure 127/57 11/19/2023 7:00 PM HEALTH ADVISOR Pulse 71 11/19/2023 7:00 PM HEALTH ADVISOR Temperature 36.3 ??C (97.3 ??F) 11/19/2023 2:10 PM CS T Respiratory Rate 18 11/19/2023 5:47 PM HEALTH ADVISOR Oxygen Saturation 94% 11/19/2023 7:00 PM HEALTH ADVISOR Inhaled Oxygen Concentration - - Weight 81.6 kg (180 lb) 11/19/2023 2:10 PM HEALTH ADVISOR Height 172.7 cm (5' 8 ) 11/19/2023 2:10 PM HEALTH ADVISOR Body Mass Index 27.37 11/19/2023 2:10 PM HEALTH ADVISOR documented in this encounter Discharge Instructions * Discharge Instructions* Marta Hurt DO - 11/19/2023 5:40 PM HEALTH ADVISOR You were seen today with concerns for [...] decreased urine output, fevers, or other concerns. TH ADVISOR TH ADVISOR documented in this encounter Medications at Time [...] 1 tablet (10 mg total) by mouth solvent process extractor operator before breakfast 4 cholecalciferol (VITAMIN D-3) 5,000 unit capsuleIndication s:Vitamin D Deficiency Take 1 capsule (5,000 Units total) by mouth every morning 4 coenzyme Q10 100 mg capsule Take 1 capsule (100 mg total) by mouth solvent process extractor operator before breakfast 4 cyclobenzaprine (FLEXERIL) 5 [...] going back to Veronica Jacob RN 11/19/23 4856 TH ADVISOR * Ruperto Jones MD - 11/19/2023 2:49 [...] sleep apnea 10/10/2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[facility] ([facility]) 08/07/2019 Presence of right artificial knee joint 10/25/2018 Primary osteoarthritis of left knee 10/25/2018 Localized adiposity 07/17/2018 Knee pain 10/24/2016 Past Medical History: Diagnosis Date Allergic rhinitis Arthritis OA Cancer ([facility] ([facility]) prostate and melonomia Gastric reflux GERD (gastroesophageal [...] nursing note reviewed. Exam conducted with a automotive glazier present. Constitutional: General: He is awake. He [...] plan with the ED team and other medical/managed services consultant staff. Voice recognition software was used to dictate and transcribe parts or all of this document. Despite proofreading, precision grinder variances and/or typographical errors might have occurred. By: Mary Costa MD Time: 11/19 3339 Comment: Sofia inflated in the proximal urethra, developed L sided hydronephrosis, stent in place but unsure if working given hydro. By: Marta Hurt DO Time: 11/19 8476 Comment: Urology will see pt By: Marta [...] Mary Costa MD at 11/24/2023 1:55 PM HEALTH ADVISOR TH ADVISOR TH ADVISOR Associated attestation - Mary Costa MD - 11/24/2023 1:55 PM HEALTH ADVISOR I have seen and examined this patient on the day of service. I have reviewed and confirmed the history, physical exam, laboratory and radiographic data with the house staff as documented in the ED resident note. I have reviewed and discussed my treatment plan with the ED team and other medical/managed services consultant staff. Voice recognition software was used to dictate and transcribe parts or all of this document. Despite proofreading, precision grinder variances and/or typographical errors might have occurred. * Leila Tanner RN - 11/19/2023 2:13 PM CST Patient arrives from [facility] with woody blood in his urine after a Sofia placement today. Patient hasrecent spine surgery x 2 with cardiac arrest afterwards, bilateral PEs. Patient arrives A&Ox4, GCS 15. Denies any complaints. TH ADVISOR * Emily Burciaga RN - 11/19/2023 2:09 PM CST Bed: [facility] Expected date: 11/19/23 Expected time: 12:44 PM Means of arrival: Ambulance Comments: Emily Burciaga RN 11/19/23 1409 TH ADVISOR documented in this encounter Miscellaneous Notes * Plan of Care - Latha Rojas RN - 11/19/2023 2:49 PM CST 11/19/23 1442 Type Readmission </= 30 Days? Yes Is this Patient Active with an Outpatient Case Management Program? No (Discharged to [facility]) Record Review of Prior Admission Was this Readmission Planned? No Disposition at Prior Admit D/C Acute rehab (Dishchared 11/16/2023 to [facility]) Was the D/C Location what the Care [...] : presents hematuria /straight cath at facility [facility] notable for ostop cardiac arrest and b/l PE on therapeutic anticoagulation, prostate CA s/p prostatectomy, GERD, obesity, CKD, UTI, melanoma, recent discharge 3 days ago for cauda equina syndrome postoperative from L4-L5 decompression, TLIF, and PSF here w/ hematuria Was Patient Discharged to Home No TH ADVISOR * ED Re-evaluation Note - Marta Hurt [...] plan with the ED team and other medical/managed services consultant staff. Voice recognition software was used to dictate and transcribe parts or all of this document. Despite proofreading, precision grinder variances and/or typographical errors might have occurred. By: Mary Costa MD Time: 11/19 7999 Comment: Sofia inflated in the proximal urethra, developed L sided hydronephrosis, stent in place but unsure if working given hydro. By: Marta Hurt, Time: 11/19 3235 Comment: Urology will see pt By: Marta [...] vesicourethral anastomosis. By: Marta Hurt, Time: 11/19 7615 Comment: Urology placed sofia over wire, recommends keepin in place fof 10 days. Trial of voice to occur after. CIC can resume afterwards if ok. By: Stickles, MD Licha Baltazar Christianne Lauren, DO Resident 11/20/23 0132 TH ADVISOR * ED Pre-Arrival Note - Emily Burciaga RN - 11/19/2023 12:44 PM HEALTH ADVISOR Pre-Arrival Note Pt coming for eval of woody blood in sofia, will need urology eval, coming by ambulance Emily Burciaga RN TH ADVISOR documented in this encounter Plan of Treatment Not on file documented as of this encounter Procedures Procedure Name Priority Date/Time Associated Diagnosis Comments CT ABDOMEN PELVIS W CONTRAST ED 11/19/2023 3:33 PM HEALTH ADVISOR TYPE AND SCREEN STAT 11/19/2023 2:56 PM HEALTH ADVISOR documented in this encounter Results * CT Abdomen Pelvis W Contrast (11/19/2023 3:33 PM HEALTH ADVISOR) Anatomical Region Laterality Modality Body N/A Computed Tomogra phy 11/19/2023 4:03 PM HEALTH ADVISOR Impressions 11/19/2023 4:06 PM HEALTH ADVISOR 1. ??Interval decreased size of left perinephric [...] Elsy Fields M.D. Narrative 11/19/2023 4:06 PM HEALTH ADVISOR EXAMINATION: ??Computed tomography of the abdomen and [...] * Type and screen (11/19/2023 2:56 PM HEALTH ADVISOR) Jigna, indirect Negative ABO Rh O Positive [facility] Blood 11/19/2023 2:56 PM HEALTH ADVISOR 11/19/2023 3:15 PM HEALTH ADVISOR Narrative [facility] - 11/19/2023 4:06 PM HEALTH ADVISOR Has the patient had Daratumumab or Isatuximab in the past 6 months?->Unknown Ruperto Jones MD LAB BLOOD BANK TEST ORDERABLE S Final Result [facility] Department [place] [address] documented in this encounter Visit Diagnoses Diagnosis Hematuria, unspecified type- Primary Displacement of Sofia catheter, initial encounter ([facility]) documented in this encounter Administered Medications Inactive Administered Medications - up to 3 most recent administrations Medication Order MAR Action Action Date Dose Rate Site ioversoL (OPTIRAY 350) syringe 75 mL 75 mL, intravenous, Once in imaging, contrast, Starting on 11/19/23 at 1533, For 1 dose Contrast Given 11/19/2023 3:34 PM HEALTH ADVISOR 67 mL documented in this encounter Active and Recently Administered Medications Times are shown in HEALTH ADVISOR. PRN Medication Order 11/17/2023 11/18/2023 11/19/2023 ioversoL [...] 11/05 documented in this encounter Care Teams Supervisor Solder Making Relationship Specialty Start Date End Date Rl Medina DO [address] [place] [address] PCP - General 08/09/17 05/25/24 documented as of this encounter
--- OUTSIDE RECORDS SUMMARY | 2024-11-05 22:59 | XMS_ITS | Encounter Summary ---
Author Organization [facility] Address [address] [place] [address] Phone Care Team Providers Care Police Commanding Officer Name Role Phone Rl Medina DO Primary Care Provider Encounter Details Date Type Department Care Team (Late st Contact Info) Description 11/23/2023 Documentation [facility] Orthopaedic Surgery [address] [facility] 1[address] [place] [address] Marcial Vu Jr., MD [address] [facility] [place] [address] Social History Tobacco Use Types Packs/Day Years Used Date Smoking Tobacco: Former Cigarettes 1 11 0 11/05/1968 - 11/05/1979 Passive Smoke Exposure: Past Smokeless Tobacco: Never Alcohol Use Standard Drinks/Week Comments Yes 14 (1 standard drink = 0.6 oz pu re alcohol) social [facility] Utilities Answer Date Recorded In the past 12 months has [employer], gas, oil, or water company threatened [...] attend chur ch or mormonism services? 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 Evans's physician at [facility], Dr. Schilling, who informed my team that [...] preventing blood clots/PEs. Marcial Vu Jr., MD Roadside Mechanic Department of Orthopaedic Surgery Division of Spine Surgery [facility] [place], [place] FILER documented in this encounter Plan of Treatment Not on file documented as of this encounter Visit Diagnoses Not on filedocumented in this encounter Care Teams Police Commanding Officer Relationship Specialty Start Date End Date Rl Medina DO [address] [place] [address] PCP - General 08/09/17 05/25/24 documented as of this encounter
--- OUTSIDE RECORDS SUMMARY | 2024-11-05 23:00 | XMS_ITS | Encounter Summary ---
Author Organization [facility] Healthcare Address [address] [place] [address] Care Team Providers Care Office Executive Name Role Phone Rl Medina DO Primary Care Provider [phone] Marlen Gray RN Unavailable [phone] Encounter Details Date Type Department Care Team (Late st Contact Info) Description 11/09/2023 Orders Only [facility] Radiology [address] [place] [address] Carey Norman RN Social History Tobacco Use Types Packs/Day Years Used Date Smoking Tobacco: Former Cigarettes 1 11 0 11/05/1968 - 11/05/1979 Passive Smoke Exposure: Past Smokeless Tobacco: Never Alcohol Use Standard Drinks/Week Comments Yes 14 (1 standard drink = 0.6 oz pu re alcohol) social [facility] Utilities Answer Date Recorded In the past 12 months has [employer], gas, oil, or water [employer] threatened to shut off services in your [...] How often do you attend chur or mosque services? 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
--- OUTSIDE RECORDS SUMMARY | 2024-11-05 23:00 | XMS_ITS | Encounter Summary ---
Author Organization [facility] Address [address] [place] [address] Phone Care Team Providers Care Customer Engagement Manager Name Role Phone Rl Medina DO Primary Care Provider [phone] Marlen Gray RN Unavailable [phone] Encounter Details Date Type Department Care Team (Late st Contact Info) Description 11/07/2023 Telephone [facility] Orthopaedic Surgery [address] [facility] 1st Floor [address] [place] [address] Marcial Vu Jr., MD [address] [facility] [address] [place] [address] Social History Tobacco Use Types Packs/Day Years Used Date Smoking Tobacco: Former Cigarettes 1 11 0 11/05/1968 - 11/05/1979 Passive Smoke Exposure: Past Smokeless Tobacco: Never Alcohol Use Standard Drinks/Week Comments Yes 14 (1 standard drink = 0.6 oz pu re alcohol) social [facility] Utilities Answer Date Recorded In the past 12 months has [employer], gas, oil, or water company threatened to [...] attend chur ch or latter-day services? Never 10/31/2023 Do you belong to [...] slept in a fdc (including now)? 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 Marcial Vu Jr., MD Cut [employer] Department of Orthopaedic Surgery Division of Spine Surgery [facility] [place], [place] ERSITY RELATIONS DIRECTOR documented in this encounter Plan of Treatment Not on file documented as of this encounter Visit Diagnoses Not on filedocumented in this encounter Care Teams Customer Engagement Manager Relationship Specialty Start Date End Date Rl Medina DO [address] [place] [address] PCP - General 08/09/17 05/25/24 Marlen Gray RN [address] [address] [employer] Outpatient Rental Representative 10/31/23 11/15/23 documented as of this encounter
--- OUTSIDE RECORDS SUMMARY | 2024-11-05 23:00 | XMS_ITS | Encounter Summary ---
Author Organization [facility] Healthcare Address [address] [place] [address] Care Team Providers Care Historiography Teacher Name Role Phone Rl Medina DO Primary Care Provider [phone] Marlen Gray RN Unavailable Reason for Visit * Reason Comments Post-op Problem * Auth/Cert (Routine) Specialty Diagnoses / Procedures Referred By Manisha t Referred To Contact Diagnoses Paralysis of both lower limbs (CMS/HCC) (HCC) numbness and weakness post spinal surgery Procedures NA Referral ID Status Reason Start Date Expiration Date Visits Re quested Visits Authorized [id number] 1 1 Encounter Details Date Type Department Care Team (Latest Contact Info) Description 11/07/2023 9:13 PM MOLD UNLOADER - 11/16/2023 12:56 PM MOLD UNLOADER Hospital Encounter [facility] [address] [place] [address] Temo Hampton MD [address] [place] [address] Marcial Vu MD [address] [facility] [address] [place] [address] Eula Wagoner MD [address] [place] [address] Marcial Vu Jr., MD [address] [facility] [place] [address] Paralysis of both lower limbs (CMS/HCC) (HCC) (Primary Dx); Acute postoperative pain Discharge Disposition: Discharge to an IP Rehab facility Social History Tobacco Use Types Packs/Day Years Used Date Smoking Tobacco: Former Cigarettes 1 11 0 11/05/1968 - 11/05/1979 Passive Smoke Exposure: Past Smokeless Tobacco: Never Alcohol Use Standard Drinks/Week Comments Yes 14 (1 standard drink = 0.6 oz pu re alcohol) social [facility] Utilities Answer Date Recorded In the past 12 months has [employer] electric, gas, oil, or water company threatened [...] attend chur ch or bahai services? Never 11/10/2023 Do you belong to [...] slept in a fdc (including now)? 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 [employer] Not on file Not on file Not on file documented as of this encounter Last Filed Vital Signs Vital Sign Reading Time Taken Comments Blood Pressure 115/73 11/16/2023 11:00 AM MOLD UNLOADER Pulse 69 11/16/2023 11:00 AM MOLD UNLOADER Temperature 36.4 ??C (97.5 ??F) 11/16/2023 12:[address] Respiratory Rate 26 11/16/2023 11:00 AM MOLD UNLOADER Oxygen Saturation 96% 11/16/2023 11:00 AM MOLD UNLOADER Inhaled Oxygen Concentration - - Weight 88.6 kg (195 lb 5.2 oz) 11/07/2023 9:21 P M MOLD UNLOADER Height 172.7 cm (5' 7.99 ) 11/09/2023 5:05 PM CS T Body Mass Index 29.71 11/07/2023 9:21 PM MOLD UNLOADER documented in this encounter Discharge Summaries * Ash Francisco Javier Kaiser, PENAL OFFICER - 11/16/2023 12:18 PM CST Images from the original note were not included. Spine Inpatient Discharge Summary Admitting Provider: Marcial Vu MD Discharge Provider: Marcial Vu Fo* Primary Care Physician at Discharge: Rl Medina DO [phone] Admission Date: 11/07/2023 Discharge Date: 11/16/2023 Primary Discharge Diagnosis: Paralysis of both lower limbs (CMS/HCC) (HCC) Secondary Discharge Diagnosis: Principal Problem: Paralysis of both lower limbs (CMS/HCC) ([facility]) Resolved Problems: No resolved hospital problems. DETAILS [...] he was directed to go to the [facility] ED, from which he was life flighted to [facility]. He endorsed rapid onset abdominalpain and altered [...] Incision: Absorbable sutures Brace: TLSO Surgical drains: Rector x2 removed on 11/12 Central Line Removed: [...] 5/5 5/5 Wrist flexion (C7) 5/5 5/5 E Commerce Web Developer (C8) 5/5 5/5 Interosseous of hand (T1) [...] 2:20 PM BJ BCT3 BJ N CT [facility] Main IMG 12/24/2023 3:30 PM Carrie Jerez [...] 1 tablet (10 mg total) by mouth senior research project manager before breakfast For: inflammation of the nose due to an allergy Commonly known as: ZyrTEC cholecalciferol 5,000 unit capsule Take 1 capsule (5,000 Units total) by mouth every morning For: low vitamin D levels Commonly known as: VITAMIN D-3 coenzyme Q10 100 mg capsule Take 1 capsule (100 mg total) by mouth senior research project manager before breakfast cyclobenzaprine 5 mg tablet Take [...] says it's OK. -Do not do any assembler piano that cause you to twist, push or [...] waterproof dressing while showering. Discharge Wound Type: Stitches/Gary -Stitches/annika will be removed at your next [...] Marcial Vu MD at 11/16/2023 4:07 PM MOLD UNLOADER UNLOADER UNLOADER UNLOADER documented in this encounter Discharge Instructions * Discharge Instructions* Francisco Javier Aleman NP - 11/16/2023 11:01 AM MOLD UNLOADER Thoracic/Lumbar Spinal Fusion Post-Operative Instructions s/p Hematoma Evacuation Questions: ?? For any post-operative questions, please contact Dr. Horace Mojica???s nurse, at [phone] via EasyLink. Galina will view and respond to your EasyLink questions sent to Dr. Vu. Wound Care: [...] you upon discharge. Please call Galina at [phone] if unable to keep appointment. A Hematology [...] it is best that you return to [facility] for your emergent care. Please call the emergency exchange at [phone] or toll free any time of the day or night on the daysthe office is closed, so that the emergent care can be initiated for you. Please follow these instructions for emergency calls: -During business hours (Sunday through Sunday 8am-4:30 PM except for holidays), call [phone]. The nailhead operator will connect you with Dr. Vu???s nurse. Dr. Vu???s nurse reports all emergencies to Dr. Vu. -After business hours (after 4:30 PM and before 8:00am) you may call the Emergency Orthopaedic Exchange at [phone] or TOLL [phone]. The nailhead operator workers' compensation hearings officer will contact Dr. Echeverria???s staff. IMPORTANT: Refills of medications need to be done during business hours-NO pain medication refills will be given over the phone after hours. Please call with any questions or concerns. We will be glad to assist you in any way during your recovery period. Dr. Vu???s Staff Galina Franco RN: [phone] UNLOADER UNLOADER documented in this encounter Medications at Time [...] 1 tablet (10 mg total) by mouth senior research project manager before breakfast 4 cholecalciferol (VITAMIN D-3) 5,000 unit capsuleIndication s:Vitamin D Deficiency Take 1 capsule (5,000 Units total) by mouth every morning 4 coenzyme Q10 100 mg capsule Take 1 capsule (100 mg total) by mouth senior research project manager before breakfast 4 cyclobenzaprine (FLEXERIL) 5 mg [...] Discharge to an IP Rehab facility [facility] documented in this encounter [...] not assigned to this patient, please call [phone]. 11/16/23 0948 General Session Type Treatment OT [...] Details: Pt will complete ADLs with spv UNLOADER * Nasir Manzanares MD - 11/16/2023 4:48 [...] 5/5 5/5 Wrist flexion (C7) 5/5 5/5 E Commerce Web Developer (C8) 5/5 5/5 Interosseous of hand (T1) [...] For susceptibility results, refer to accession number [id number] on the urine culture from 10/11/23 MICROBIOLOGY [...] Manzanares MD Department of Orthopaedic Surgery, PGY-2 [facility] Please call with questions during daytime. See below for overnight issues. If you know the resident's name on the appropriate orthopaedic surgery team, please use [email or web address] to page resident directly. If questions arise and the appropriate resident can't be reached or you are calling overnight, please contact [phone] ([place]- 7:30 PM - 6:30 AM - Floor Resident) or [phone] (24 hours/day - Consult Resident) Cosigned by Marcial Vu MD at 11/21/2023 5:13 PM MOLD UNLOADER UNLOADER UNLOADER * Javad Sánchez. - 11/15/2023 1:32 PM [...] treatment team and contact the PT or FIRER LOCOMOTIVE currently assigned to this patient. If a physical therapy clinician is not assigned to this patient, please call [phone]. 11/15/23 1335 PT Last Visit Session Type Treatment PT [...] Radha Dunlap, PT at 11/15/2023 4:06 PM MOLD UNLOADER UNLOADER UNLOADER * Oneyda Farrell OT - 11/15/2023 8:03 [...] not assigned to this patient, please call [phone]. 11/15/23 0803 General Session Type Treatment OT [...] transfer 11/10/23 11/17/23 -- Goal Details: To/from [facility] with mod A Problem: OT Misc Start Date: 11/10/23 Goal Start Date Expected End Date End Date OT LTG - Misc 1 11/10/23 12/01/23 -- Goal Details: Pt will complete ADLs with spv UNLOADER * Nasir Manzanares MD - 11/15/2023 7:49 [...] 5/5 5/5 Wrist flexion (C7) 5/5 5/5 E Commerce Web Developer (C8) 5/5 5/5 Interosseous of hand (T1) [...] For susceptibility results, refer to accession number [id number] on the urine culture from 10/11/23 MICROBIOLOGY [...] Manzanares MD Department of Orthopaedic Surgery, PGY-2 [facility] [place]/[facility] Please call with questions during daytime. See below for overnight issues. If you know the resident's name on the appropriate orthopaedic surgery team, please use [email or web address] to page resident directly. If questions arise and the appropriate resident can't be reached or you are calling overnight, please contact [phone] ([facility] 7:30 PM - 6:30 AM - Floor Resident) or [phone] (24 hours/day - Consult Resident) Cosigned by Marcial Vu MD at 11/15/2023 4:18 PM MOLD UNLOADER UNLOADER UNLOADER * eJremias Ibrahim RD - 11/14/2023 7:35 PM CST [...] sodium chloride 0.9%, 0.5-20 mL, intra-catheter, Q8H ACMMY tamsulosin, 0.8 mg, oral, Daily with dinner Continuous Infusions: PRN Meds: dextrose OR dextrose glucagon hydrALAZINE ondansetron prochlorperazine sodium chloride 0.9% traMADoL Recent Labs Lab Units 11/13/23200611/11/23 2135 11/10/23 2313 SODIUM mmol/L 136 135 135 POTASSIUM PLASMA mmol/L 4.6 4.6 4.3 CHLORIDE mmol/L 102 103 104 CO2 mmol/L 26 24 24 BUN SERUM mg/dL 27* 22 22 CREATININE mg/dL 0.71* 0.81 0.82 HSZ-NNR-PAGLTOM mL/min/1.73 m2 >90 >90 >90 CALCIUM mg/dL [...] Calorie Diet effective now Question Answer Comment ([facility]) Diet type Restricted Diabetic: Consistent Carbohydrate Other Restriction(s): High Protein/High Calorie 11/14/23 0939 11/09/23 2100 Bedtime snack At bedtime Comments: If bedtime BG is less than 100mg/dl, give patient a 15 gram carbohydrate snack. 11/09/23 8038 Allergies: Reviewed. IMPRESSION: Pt had been placed on [facility] soft consistency when diet started. Not sure [...] Stool patterns Jeremias Ibrahim RD LD CDE [phone]. Weekends [phone] UNLOADER * Javad Sánchez - 11/14/2023 2:23 PM [...] treatment team and contact the PT or FIRER LOCOMOTIVE currently assigned to this patient. If a physical therapy clinician is not assigned to this patient, please call [phone]. 11/14/23 1427 PT Last Visit Session Type Treatment PT Received On 11/14/23 Safe Environment Arm band checked;Patient found in supine;Session completed bedside;Gait belt not utilized, see comment Subjective Agreeable to Therapy Family/Caregiver Present Yes Precautions Precautions Fall risk;Spinal/Back Weight Bearing Restrictions No Braces/Orthoses TLSO Precaution Handout Issued No Activity Tolerance Activity Tolerance Comments LIUS ANGEL: Somewhat hard Pain Assessment Pain Assessment [...] Radha Dunlap, PT at 11/14/2023 5:40 PM MOLD UNLOADER UNLOADER UNLOADER * Aileen Dunlap OT - 11/14/2023 1:30 PM CST Occupational Therapy 11/14/23 1330 General OT Missed Visit Reason Other (comment) (To xray per RN; OT to f/u as scheduling and availability permits) UNLOADER * Marcial Yanez - 11/14/2023 9:34 AM CST 11/14/23 0900 Time Spent Start Time 0900 Stop Time 0920 Time Calculation (min) 20 min Patient Spiritual Assessment Spirituality Assessed Focus of Care Catholic Affiliation Other (Comment) (no preference) Active in Anglican No Clinical Encounter Type Visited With Patient Response Type (consult requested) Reason for visit Anxiety;Support Referral From Patient;Other (Comment) (Staff) Outcomes and Progress Preserve dignity and respect Achieved Demonstrating care and respect Achieved Establish rapport and connectedness Achieved Interventions Interventions Active listening (Patient advises feeling great with high optimism after session with PT and does not require spiritual care at this time.) [facility] Spiritual Care Note Resident Assessment Manager Marcial Yanez Triage: [phone] UNLOADER * Nasir Manzanares MD - 11/14/2023 5:08 [...] 5/5 5/5 Wrist flexion (C7) 5/5 5/5 E Commerce Web Developer (C8) 5/5 5/5 Interosseous of hand (T1) [...] For susceptibility results, refer to accession number [id number] on the urine culture from 10/11/23 MICROBIOLOGY [...] Manzanares MD Department of Orthopaedic Surgery, PGY-2 [facility] [place]/[facility] Please call with questions during daytime. See below for overnight issues. If you know the resident's name on the appropriate orthopaedic surgery team, please use [email or web address] to page resident directly. If questions arise and the appropriate resident can't be reached or you are calling overnight, please contact [phone] ([facility]- 7:30 PM - 6:30 AM - Floor Resident) or [phone] (24 hours/day - Consult Resident) Cosigned by Marcial Vu MD at 11/14/2023 9:34 AM MOLD UNLOADER UNLOADER UNLOADER Associated attestation - Marcial Vu Jr., MD - 11/14/2023 9:34 AM MOLD UNLOADER Attending Attestation I have seen and examined [...] x-rays when able. Marcial Vu Jr., MD Lead Ramp Agent Department of Orthopaedic Surgery Division of Spine Surgery [facility] [employer] [facility] [place], [place] Beveling Machine Operator done by [employer]; therefore, [...] treatment team and contact the PT or FIRER LOCOMOTIVE currently assigned to this patient. If a physical therapy clinician is not assigned to this patient, please call [phone]. 11/13/23 1329 PT Last Visit Session Type [...] Radha Dunlap, PT at 11/13/2023 5:19 PM MOLD UNLOADER UNLOADER UNLOADER * Veronica Vivas OT - 11/13/2023 12:54 [...] not assigned to this patient, please call [phone]. 11/13/23 1000 General Session Type Treatment OT [...] Details: Pt will complete ADLs with spv UNLOADER * Marcial Yanez - 11/13/2023 10:06 AM CST 11/13/23 1000 Time Spent Start Time 0950 Stop Time 1000 Time Calculation (min) 10 min Patient Spiritual Assessment Spirituality Assessed Unable to assess Catholic Affiliation Other (Comment) (no preference) Clinical Encounter Type Visited With Patient not available (with care team) Response Type (consult request) Reason for visit Support;Anxiety Referral From Patient [facility] Spiritual Care Note Resident Assessment Manager Marcial Yanez Triage: [phone] UNLOADER * Nasir Manzanares MD - 11/13/2023 7:01 [...] 5/5 5/5 Wrist flexion (C7) 5/5 5/5 E Commerce Web Developer (C8) 5/5 5/5 Interosseous of hand (T1) [...] For susceptibility results, refer to accession number [id number] on the urine culture from 10/11/23 MICROBIOLOGY [...] Manzanares MD Department of Orthopaedic Surgery, PGY-2 [facility] Please call with questions during daytime. See below for overnight issues. If you know the resident's name on the appropriate orthopaedic surgery team, please use [email or web address] to page resident directly. If questions arise and the appropriate resident can't be reached or you are calling overnight, please contact [phone] ([facility]- 7:30 PM - 6:30 AM - Floor Resident) or [phone] (24 hours/day - Consult Resident) Cosigned by Marcial Vu MD at 11/13/2023 8:20 PM MOLD UNLOADER UNLOADER UNLOADER Associated attestation - Marcial Vu Jr., MD - 11/13/2023 8:20 PM MOLD UNLOADER Attending Attestation I have seen and examined [...] Awaiting floor bed. Marcial Vu Jr., MD Lead Ramp Agent Department of Orthopaedic Surgery Division of Spine Surgery [facility] [place], [place] Beveling Machine Operator done by [employer]; therefore, [...] Marcial Vu MD at 11/12/2023 8:38 PM MOLD UNLOADER UNLOADER UNLOADER * Shane Bowen OT - 11/12/2023 1:40 PM CST Occupational Therapy 11/12/23 1340 General OT Missed Visit Reason With other staff/receiving another service (Pt declined 2/2 just returning to bed from chair with nursing, PMR also in room having discussion with Pt and family members. OT will attempt at a later time/date.) UNLOADER * Radha Dunlap, PT - 11/12/2023 9:48 [...] treatment team and contact the PT or FIRER LOCOMOTIVE currently assigned to this patient. If a physical therapy clinician is not assigned to this patient, please call [phone]. 11/12/23 0948 PT Last Visit Session Type [...] Transfer Level of Assistance 1 Maximum Assist (chimney builder helper present with SBA - Min A due to risk of posterior LOB) Trials/Comments 1 Draw sheet used to for force production and to reduce shear Ambulation Ambulation No Other Comments Other PT Comments Pt tolerated greater than 45 min activity with PT and RN. Pt and with many appropriate questions and demonsntrate emerging insight into rehab course here at [facility] and at [facility]. Pt verbalized appropriate, non-suicidal, concerns regarding his current mental health, PENAL OFFICER notified via secure chat Basic Mobility - [...] -- Goal Details: SBA for 5 minutes UNLOADER * Nasir Manzanares MD - 11/12/2023 9:41 [...] 5/5 5/5 Wrist flexion (C7) 5/5 5/5 E Commerce Web Developer (C8) 5/5 5/5 Interosseous of hand (T1) [...] For susceptibility results, refer to accession number [id number] on the urine culture from 10/11/23 MICROBIOLOGY [...] Manzanares MD Department of Orthopaedic Surgery, PGY-2 [facility] [place]/[facility] Please call with questions during daytime. See below for overnight issues. If you know the resident's name on the appropriate orthopaedic surgery team, please use [email or web address] to page resident directly. If questions arise and the appropriate resident can't be reached or you are calling overnight, please contact [phone] ([facility] 7:30 PM - 6:30 AM - Floor Resident) or [phone] (24 hours/day - Consult Resident) Cosigned by Marcial Vu MD at 11/12/2023 8:33 PM MOLD UNLOADER UNLOADER UNLOADER Associated attestation - Marcial Vu Jr., MD - 11/12/2023 8:33 PM MOLD UNLOADER Attending Attestation I have seen and examined [...] evening versus tomorrow. Marcial Vu Jr., MD Lead Ramp Agent Department of Orthopaedic Surgery Division of Spine Surgery [facility], [place] Beveling Machine Operator done by Fluency Direct; therefore, [...] bags Responsible Team Irene Oropeza MD (du) [phone] Alice Dodge MD (senior) Octavio Matute MD (chief) Please contact the resident in bold with any questions. If it is after 6pm or you are unable to reach the residents listed, please page the Neurosurgery Call Pager at [phone]. Note created by Irene Oropeza MD on 11/12/2023 at 7:26 AM. Cosigned by Simeon Cuevas MD at 11/12/2023 2:24 PM MOLD UNLOADER UNLOADER UNLOADER * Ata Marquez MD - 11/11/2023 11:07 [...] 5/5 5/5 Wrist flexion (C7) 5/5 5/5 E Commerce Web Developer (C8) 5/5 5/5 Interosseous of hand (T1) [...] For susceptibility results, refer to accession number [id number] on the urine culture from 10/11/23 MICROBIOLOGY [...] Marquez M.D. Department of Orthopaedic Surgery, PGY-3 [facility] [place]/[facility] Dr. Ata Marquez dictating using [employer]ency [employer]. Dictation variances may occur. Please call with questions during daytime. See below for overnight issues. If you know the resident's name on the appropriate orthopaedic surgery team, please use [email or web address] to page resident directly. If questions arise and the appropriate resident can't be reached or you are calling overnight, please contact [phone] ([facility]- 7:30 PM - 6:30 AM - Floor Resident) or [phone] (24 hours/day - Consult Resident) Cosigned by Marcial Vu MD at 11/12/2023 8:33 PM MOLD UNLOADER UNLOADER UNLOADER Associated attestation - Marcial Vu Jr., MD - 11/12/2023 8:33 PM MOLD UNLOADER Images from the original note were not [...] Rehab PM&R consult Marcial Vu Jr., MD Lead Ramp Agent Department of Orthopaedic Surgery Division of Spine Surgery [place], [place] * Marcial Vu MD - 11/11/2023 [...] Rehab PM&R consult Marcial Vu Jr., MD Lead Ramp Agent Department of Orthopaedic Surgery Division of Spine Surgery [place], [place] UNLOADER * Artie Real MD PhD - 11/11/2023 [...] Drains x2 bile bags Responsible Team Farhan ([phone]) Aum Please contact the resident in bold with any questions. If it is after 6pm or you are unable to reach the residents listed, please page the Neurosurgery Call Pager at [phone]. Note created by Artie Real MD PhD on 11/11/2023 at 9:02 AM. Cosigned by Simeon Cuevas MD at 11/11/2023 11:19 AM MOLD UNLOADER UNLOADER UNLOADER * Javad Sow, PT - 11/10/2023 2:36 [...] better Prior Function Prior Function Level of Otoe: Independent functional transfers, Independent with ambulation Lives [...] -- Goal Details: SBA for 5 minutes UNLOADER * Leila Vela, OT - 11/10/2023 2:12 [...] walker Prior Function Prior Function Level of Otoe: Independent with ADLs, Independent functional transfers, Independent with ambulation, Needs assistance with homemaking Lives With: Spouse Receives Help From: Spouse/Significant other, Family (multimedia authoring specialist assist available) Driving: Yes (has not driven for several weeks) ADL Assistance: Independent (pts provided spv in the last few weeks) Instrumental ADL (IADL) Assistance: (completed by /family) 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 If an occupational therapist is not assigned to this patient, please call [phone]. UNLOADER * Ata Marquez MD - 11/10/2023 11:19 [...] 5/5 5/5 Wrist flexion (C7) 5/5 5/5 E Commerce Web Developer (C8) 5/5 5/5 Interosseous of hand (T1) [...] For susceptibility results, refer to accession number [id number] on the urine culture from 10/11/23 MICROBIOLOGY [...] Marquez M.D. Department of Orthopaedic Surgery, PGY-3 [facility] [place]/[facility] Dr. Ata Marquez dictating using Fluency Direct. Dictation variances may occur. Please call with questions during daytime. See below for overnight issues. If you know the resident's name on the appropriate orthopaedic surgery team, please use [email or web address] to page resident directly. If questions arise and the appropriate resident can't be reached or you are calling overnight, please contact [phone] ([facility] 7:30 PM - 6:30 AM - Floor Resident) or [phone] (24 hours/day - Consult Resident) Cosigned by Marcial Vu MD at 11/12/2023 8:38 PM MOLD UNLOADER UNLOADER UNLOADER * Alice Dodge MD - 11/10/2023 7:11 [...] bags Responsible Team Irene Oropeza MD (du) [phone] Alice Dodge MD (senior) Octavio Matute MD (chief) Please contact the resident in bold with any questions. If it is after 6pm or you are unable to reach the residents listed, please page the Neurosurgery Call Pager at [phone]. Note created by Alice Dodge MD on 11/10/2023 at 7:12 AM. Cosigned by Simeon Cuevas MD at 11/10/2023 11:35 AM MOLD UNLOADER UNLOADER UNLOADER * Marcial Vu MD - 11/09/2023 12:45 [...] out of bed Marcial Vu Jr., MD Lead Ramp Agent Department of Orthopaedic Surgery Division of Spine Surgery [facility], [place] UNLOADER * Irene Oropeza MD - 11/09/2023 10:03 [...] spine Responsible Team Irene Oropeza MD (du) [phone] Alice Dodge MD (senior) Octavio Matute MD (chief) Please contact the resident in bold with any questions. If it is after 6pm or you are unable to reach the residents listed, please page the Neurosurgery Call Pager at [phone]. Note created by Irene Oropeza MD on 11/09/2023 at 10:03 AM. Cosigned by Simeon Cuevas MD at 11/10/2023 11:35 AM MOLD UNLOADER UNLOADER UNLOADER * Vicki Rehman, PENAL OFFICER - 11/09/2023 9:22 AM CSTAssociated Order(s): Critical [...] with walker since 10/30/23 discharge. Transferred to [facility], MRI with longitudinally extending dorsal epidural [...] AM Result Value Ref Range Product code V4671M37 Unit Number [id number] Product Blood Type OPOS Dispense Status ISSUED Product code Y2278D38 Unit Number [id number] Product Blood Type OPOS Dispense Status RETURNED Product code N4346Q99 Unit Number [id number] Product Blood Type OPOS Dispense Status ISSUED Product code B1266J26 Unit Number [id number] Product Blood Type OPOS Dispense Status ISSUED Prepare plasma: 4 Units Collection Time: 11/08/23 2:28 AM Result Value Ref Range Product code I1220E44 Unit Number [id number] Product Blood Type OPOS Dispense Status RETURNED Product code G4133T03 Unit Number [id number] Product Blood Type OPOS Dispense Status RETURNED Product code I9279G25 Unit Number [id number] Product Blood Type OPOS Dispense Status RETURNED Product code F2436J93 Unit Number [id number] Product Blood Type OPOS Dispense Status ISSUED [...] Problem: Paralysis of both lower limbs (CMS/HCC) ([facility]) Plan of Care: NEURO: #Acute on chronic [...] plan with the patient's team and other medical/operations consultant staff. This time was in addition [...] Silver Brown MD at 11/09/2023 4:24 PM MOLD UNLOADER UNLOADER UNLOADER * Nasir Manzanares MD - 11/09/2023 8:15 [...] 5/5 5/5 Wrist flexion (C7) 5/5 5/5 E Commerce Web Developer (C8) 5/5 5/5 Interosseous of hand (T1) [...] For susceptibility results, refer to accession number [id number] on the urine culture from 10/11/23 MICROBIOLOGY [...] or you are calling overnight, please contact [phone] ([place]- 7:30 PM - 6:30 AM - Floor Resident) or [phone] (24 hours/day - Consult Resident) Cosigned by Marcial Vu MD at 11/12/2023 8:37 PM MOLD UNLOADER UNLOADER UNLOADER Associated attestation - Marcial Vu Jr., MD - 11/12/2023 8:37 PM MOLD UNLOADER Images from the original note were not [...] out of bed Marcial Vu Jr., MD Lead Ramp Agent Department of Orthopaedic Surgery Division of Spine Surgery [facility] [place], [place] * Marcial Vu MD - 11/08/2023 [...] questions or concerns. Marcial Vu Jr., MD Lead Ramp Agent Department of Orthopaedic Surgery Division of Spine Surgery [facility] [place], [place] [phone] UNLOADER * Nuvia Cantu NP - 11/08/2023 6:15 [...] with walker since 10/30/23 discharge. Transferred to [facility], MRI with longitudinally extending dorsal epidural [...] - Department of Vascular Surgery, Vascular Laboratory [address] [place] [address] Lower Extremity Venous Ultrasound Report Preliminary Patient Name: HIRA EVANS : 1950 (73y 4m) Study Date: 11/08/2023 2:22:46 PM Gender: M Tech: MD Location: [id number] Ref Provider: VICKI REHMAN Quality: Adequate Order [...] INDICATIONS: recent bilateral PE - FINDINGS: Performing Director Retail Brand Development: Nola Walker RVT, RDMS. Bilateral: Venous Doppler [...] performed. ATTESTATION: Electronically Signed By: 2023-11-08 15:05:[address] Cervical Thoracic Lumbar Spine WO Contrast [...] (c) Other (Comment) Size (Fr.): (c) Drain [place] Size (mL): 266 mL Number of Sutures Placed: 1 Number of days: 0 Closed/Suction/Open Drain 2 Right Back (Active) Placement Date/Time: 11/08/23 0940 Inserted by: Dr. Vu Tube Number: 2 Orientation: Right Location: Back Drain Tube Type: (c) Size (Fr.): (c) Drain [place] Size (mL): 266 mL Number of Sutures [...] Problem: Paralysis of both lower limbs (CMS/HCC) ([facility]) Plan by system: Neurologic: Overall CAM-ICU: Positive [...] plan with the ICU team and other medical/operations consultant staff, making frequent assessments and decisions [...] Dmitry Neal MD at 11/11/2023 4:21 AM MOLD UNLOADER UNLOADER UNLOADER * Nasir Manzanares MD - 11/08/2023 2:16 [...] 5/5 5/5 Wrist flexion (C7) 5/5 5/5 E Commerce Web Developer (C8) 5/5 5/5 Interosseous of hand (T1) [...] Marcial Vu MD at 11/08/2023 4:24 PM MOLD UNLOADER UNLOADER UNLOADER * Marcial Vu MD - 11/08/2023 1:38 [...] 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 Marcial Vu Jr., MD Lead Ramp Agent Department of Orthopaedic Surgery Division of Spine Surgery [employer] [place], [place] UNLOADER UNLOADER * Marcial Vu MD - 11/07/2023 10:52 [...] cauda equina compression. Marcial Vu Jr., MD Lead Ramp Agent Department of Orthopaedic Surgery Division of Spine Surgery [facility] [place], [place] UNLOADER UNLOADER documented in this encounter H&P Notes * [...] with walker since 10/30/23 discharge. Transferred to [facility], MRI with longitudinally extending dorsal epidural [...] 1 tablet (10 mg total) by mouth senior research project manager before breakfast cholecalciferol (VITAMIN D-3) 5,000 unit capsule Take 1 capsule (5,000 Units total) by mouth every morning coenzyme Q10 100 mg capsule Take 1 capsule (100 mg total) by mouth senior research project manager before breakfast cyclobenzaprine (FLEXERIL) 5 mg tablet [...] mg capsule Take 1 tablet by mouth senior research project manager before breakfast gabapentin (NEURONTIN) 300 mg capsule [...] AM Result Value Ref Range Product code V4962M21 Unit Number [id number] Product Blood Type OPOS Dispense Status ISSUED Product code M1561K85 Unit Number [id number] Product Blood Type OPOS Dispense Status RETURNED Product code F7676M31 Unit Number [id number] Product Blood Type OPOS Dispense Status ISSUED Product code I8669J92 Unit Number [id number] Product Blood Type OPOS Dispense Status ISSUED Prepare plasma: 4 Units Collection Time: 11/08/23 2:28 AM Result Value Ref Range Product code E5040T85 Unit Number [id number] Product Blood Type OPOS Dispense Status RETURNED Product code E2414O03 Unit Number [id number] Product Blood Type OPOS Dispense Status RETURNED Product code F8430C09 Unit Number [id number] Product Blood Type OPOS Dispense Status RETURNED Product code K8828B53 Unit Number [id number] Product Blood Type OPOS Dispense Status ISSUED [...] AM Result Value Ref Range Product code D0311B60 Unit Number [id number] Product Blood Type OPOS Dispense Status ISSUED Product code J8173S32 Unit Number [id number] Product Blood Type OPOS Dispense Status RETURNED Product code U0177L04 Unit Number [id number] Product Blood Type OPOS Dispense Status ISSUED Product code X7946G08 Unit Number [id number] Product Blood Type OPOS Dispense Status ISSUED Prepare plasma: 4 Units Collection Time: 11/08/23 2:28 AM Result Value Ref Range Product code R1174W69 Unit Number [id number] Product Blood Type OPOS Dispense Status RETURNED Product code F5751I26 Unit Number [id number] Product Blood Type OPOS Dispense Status RETURNED Product code P7352S98 Unit Number [id number] Product Blood Type OPOS Dispense Status RETURNED Product code D7177N26 Unit Number [id number] Product Blood Type OPOS Dispense Status ISSUED [...] Problem: Paralysis of both lower limbs (CMS/HCC) ([facility]) Plan of Care: NEURO: #Acute on chronic [...] plan with the ICU team and other medical/operations consultant staff, making frequent assessments and decisions [...] Silver Brown MD at 11/08/2023 5:59 PM MOLD UNLOADER UNLOADER UNLOADER documented in this encounter Procedure Notes * [...] = Cosigned By Initials Name Melissa Hutton cell room operator Access Documentation (last 4 hours) [facility] Additional [...] RN Plan Follow up Mckay Castellanos RN UNLOADER documented in this encounter Consult Notes * Tyrone Martínez MD - 11/13/2023 12:47 AM CSTAssociated Order(s): CONSULT TO PM&R PHYSICIAN Patient Name: HIRA EVANS Medical Record Number (MRN): [id number] Date of (): 1950 Encounter Date: 11/07/2023 [...] CA s/p prostatectomy, who was admitted to [facility] on 11/07/2023 forsudden onset BLE numbness and [...] Diagnosis Date Allergic rhinitis Arthritis OA Cancer ([facility]) (HCC) prostate and melonomia Gastric reflux GERD [...] elbow flexion, elbow extension, wrist extension, and director of district office LUE: 5/5 with shoulder abduction, elbow flexion, elbow extension, wrist extension, and director of district office RLE:1/5 with hip flexion, 0/5 knee extension, [...] CA s/p prostatectomy, who was admitted to [facility] on 11/07/2023 for sudden onset BLE [...] evaluated by and continuing to work with PT/OT/ARCHITECT IN TRAINING for assessment of current function and discharge [...] Yarely Ortiz MD at 11/15/2023 9:55 PM MOLD UNLOADER UNLOADER UNLOADER Associated attestation - Yarely Ortiz MD - 11/15/2023 9:55 PM MOLD UNLOADER ATTENDING DOCUMENTATION I have seen and examined [...] personally spent minutes on this patient's case: [id number] time consisting of patient interview and evaluation/examination, [...] ACUTE PAIN SERVICE CONSULT NOTE Hira Evans, [id number] Reason for Consult: Intravenous Lidocaine Infusion for pain Requesting Provider: Horace Chief Complaint: Back and Chest pain Subjective Hira Evans is a 73 y.o. year old male referred by Dr. Vu for consultation regarding his back and chest pain. He has a history of HTN, lumbar radiculopathy s/p L4-5 decompression 10/23/23, prostate cancer who presented to [facility] 11/08/23 with acute cauda equina syndrome now [...] 1 tablet (10 mg total) by mouth senior research project manager before breakfast cholecalciferol (VITAMIN D-3) 5,000 unit capsule Take 1 capsule (5,000 Units total) by mouth every morning coenzyme Q10 100 mg capsule Take 1 capsule (100 mg total) by mouth senior research project manager before breakfast cyclobenzaprine (FLEXERIL) 5 mg tablet [...] mg capsule Take 1 tablet by mouth senior research project manager before breakfast gabapentin (NEURONTIN) 300 mg capsule [...] history of cardiac disorder - (Added by PELRA Conv) Cancer Other Family history of malignant [...] glucagon hydrALAZINE ondansetron prochlorperazine sodium chloride 0.9% @[facility]@ OBJECTIVE Vitals: 24hr Min/Max: Temp Min: 36.4 [...] MD Acute Pain Service Department of Anesthesiology [facility], [facility] If you have questions or concerns, please contact the [facility] nailhead operator to page the Pain Management service. After hours, this is not an in-house pager, please reserve non-urgent calls from [phone]. We are happy to address emergent calls 28/05. 11/12/23 10:25 AM For patients or family members viewing this note through [facility] programs: This note was written as a [...] Akbar MD PhD at 11/13/2023 10:35 AM MOLD UNLOADER UNLOADER UNLOADER Associated attestation - Salome Akbar MD PhD - 11/13/2023 10:35 AM MOLD UNLOADER I have seen and examined the patient [...] for complex higher level or care or skilled nursing planning for care . Patient is not [...] work needs at this time. GEN Munoz, HOME ADVISOR UNLOADER UNLOADER * Annette Calero MD - 11/08/2023 12:58 [...] with the abovementioned assessment and plan. 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[facility]) [facility] [...] 1 tablet (10 mg total) by mouth senior research project manager before breakfast Fidelia Perdue MD cholecalciferol (VITAMIN D-3) 5,000 unit capsule Take 1 capsule (5,000 Units total) by mouth every morning Fidelia Perdue MD coenzyme Q10 100 mg capsule Take 1 capsule (100 mg total) by mouth senior research project manager before breakfast Fidelia Perdue MD cyclobenzaprine (FLEXERIL) [...] mg capsule Take 1 tablet by mouth senior research project manager before breakfast Fidelia Perdue MD gabapentin (NEURONTIN) [...] AM Result Value Ref Range Product code B3679Q04 Unit Number [id number] Product Blood Type OPOS Dispense Status ISSUED Product code L8552N19 Unit Number [id number] Product Blood Type OPOS Dispense Status RETURNED Product code P7520E39 Unit Number [id number] Product Blood Type OPOS Dispense Status ISSUED Product code Y5346K27 Unit Number [id number] Product Blood Type OPOS Dispense Status ISSUED Prepare plasma: 4 Units Collection Time: 11/08/23 2:28 AM Result Value Ref Range Product code U8307J08 Unit Number [id number] Product Blood Type OPOS Dispense Status RETURNED Product code A5046C73 Unit Number [id number] Product Blood Type OPOS Dispense Status RETURNED Product code N7125R03 Unit Number [id number] Product Blood Type OPOS Dispense Status RETURNED Product code N2302O79 Unit Number [id number] Product Blood Type OPOS Dispense Status ISSUED [...] Josiane Mcgrath MD at 11/09/2023 9:45 AM MOLD UNLOADER UNLOADER UNLOADER UNLOADER Associated attestation - Josiane Mcgrath MD - 11/09/2023 9:45 AM MOLD UNLOADER I have seen and examined the patient [...] from which he was life flighted to [facility]. 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 Hand dominance: [...] 1 tablet (10 mg total) by mouth senior research project manager before breakfast Fidelia Perdue MD cholecalciferol (VITAMIN D-3) 5,000 unit capsule Take 1 capsule (5,000 Units total) by mouth every morning Fidelia Perdue MD coenzyme Q10 100 mg capsule Take 1 capsule (100 mg total) by mouth senior research project manager before breakfast Fidelia Perdue MD cyclobenzaprine (FLEXERIL) [...] mg capsule Take 1 tablet by mouth senior research project manager before breakfast Fidelia Perdue MD gabapentin (NEURONTIN) [...] mg total) by mouth every morning Fidelia Perude MD oxyCODONE (ROXICODONE) 5 mg immediate release [...] extension 5/5 5/5 Wrist flexion 5/5 5/5 E Commerce Web Developer 5/5 5/5 Interosseous of hand 5/5 5/5 [...] imaging. MRI contacted regarding criticalnature of imaging, dental technician instructor conferred that per [facility] protocol there is no spine emergency and that only acute stroke qualifies for MRI. dental technician instructor additionally stated if a patient is stable enough to undergo a scan as long as an MRI, they don't need emergent surgery. Again emphasized the urgent nature of scan and described sudden onset paralysis. dental technician instructor stated patient would be next on scanner [...] surgery team,please use the Directory Search at [email or web address] to page resident directly. If questions arise and the appropriate resident can't be reached or you are calling overnight, please contact [phone] ([place]- 7:30 PM - 6:30 AM - Floor Resident) or [phone] (24 hours/day - Consult Resident) Cosigned by Marcial Vu MD at 11/08/2023 3:32 AM MOLD UNLOADER UNLOADER UNLOADER Associated attestation - Marcial Vu Jr., MD - 11/08/2023 3:32 AM MOLD UNLOADER I personally examined Mr. Evans at the [...] RN and agree with the documented assessment. UNLOADER * Kasey Emmanuel RN - 11/09/2023 4:03 PM [place] [address] from 4413 at 1545. Two nurses teamed up to successfully complete a head to toeskin assessment. The findings of this resulted in the following: Blanchable redness on bottom. See full assessment for skin details. The appropriate goals and interventions have been implemented and documented. Will continue to monitor closely. UNLOADER * Niyah Anderson RN - 11/07/2023 8:15 PM CST Verbal order from Dr. Vu- Dr. Vu would like to be notify on patients arrival- [phone] MRI total spine without contrast Bilateral lower extremity venous doppler Consult to ortho-spine UNLOADER documented in this encounter ED Notes * [...] List Diagnosis Date Noted ??? Pulmonary embolism ([facility]) 10/26/2023 ??? S/P spinal fusion 10/23/2023 ??? Cardiac arrest ([facility]) 10/23/2023 ??? Left perinephric collection, 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 10/15/2023 ??? Ureteral colic 10/13/2023 ??? UTI (urinary tract infection) 10/13/2023 ??? Hydronephrosis with urinary obstruction due to renal calculus 10/12/2023 ??? Lumbar radiculopathy 10/08/2023 ??? Gross hematuria 10/18/2022 ??? Bladder neck obstruction 10/17/2022 ??? Lesion of urinary bladder 10/17/2022 ??? Prostate cancer ([facility]) 10/17/2022 ??? HTN (hypertension) 10/10/2021 ??? Risk factors for obstructive sleep apnea 10/10/2021 ??? 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 Presence of right artificial knee joint 10/25/2018 ??? Primary osteoarthritis of left knee 10/25/2018 ??? Localized adiposity 07/17/2018 ??? Knee pain 10/24/2016 Past Medical History: Diagnosis Date ??? Allergic rhinitis ??? Arthritis OA ??? Cancer (CMS/HCC) ([facility]) prostate and melonomia ??? Gastric reflux ??? [...] and Affect: Mood normal. Behavior: Behavior normal. [facility] Medical Decision Making Hira Gee is a [...] Ayala MD Time: 11/07 2238 Comment: Called [facility] MRI. Patient is on the schedule for 2329 and is the next patient. By: Deisy Ayala MD Time: 11/08 005 Comment: Ortho spine requested CT of CT and L-spine non con. They are planning for OR By: Abdi Dwyer MD Paralysis of both lower limbs ([facility]) ([facility]) Deisy Ayala MD Resident 11/07/23 2242 Cosigned by Temo Hampton MD at 11/09/2023 12:50 AM MOLD UNLOADER UNLOADER UNLOADER Associated attestation - Temo Hampton MD - 11/09/2023 12:50 AM MOLD UNLOADER I have seen and examined the patient [...] pt was walking with walker. A&O4, VSS. UNLOADER UNLOADER * Jessenia Fox RN - 11/07/2023 9:13 PM CST Bed: [facility] Expected date: 11/07/23 Expected time: 12:00 AM Means of arrival: Medical Flight Comments: Jessenia Fox, NARENDRA 11/07/232112 UNLOADER documented in this encounter Miscellaneous Notes * [...] Will remain free from infection Outcome: Progressing UNLOADER * Plan of Care - Josiane Blakely RN - 11/16/2023 9:02 AM CST 11/16/23 0902 Communications Important Message from Medicare notice given to patient? Yes IM letter completed with patient/hospital sales representative at bedside. Patient/hospital sales representative were informed ofthe planned discharge date, the date the beneficiary's financial liability begins, the beneficiary's appeal rights, and how and when to initiate an appeal. Patient/hospital sales representative were provided a copy of the IM letter and IM letter was placed in unit???s designated medical record bin to be uploaded into the patient???s chart. UNLOADER * Plan of Care - Joann Hurtado RN - 11/16/2023 6:16 AM MOLD UNLOADER Goals: Problem: Activity: Goal: Mobility will improve [...] stable. Labs drawn. Patient slept some overnight. UNLOADER * Plan of Care - Radha Hancock [...] Patient's painwell controlled. Will continue to monitor. UNLOADER * Plan of Care - Josiane Blakely [...] plan Support following discharge: spouse Val Evans [phone]/facility Transportation: to be arranged prior to discharge F/U Appointments: to be scheduled by primary team Patient's Identified Problem/Goal Problem: Ensure acute medical needs are met and that patient has a safe discharge plan. Goal: Secure a discharge plan that patient/family are agreeable with and ensure patient has continuum of care. Patient and/or family are agreeable with plan. manager bench will continue to follow and assist with discharge planning as needed. If any further discharge needs arise, please contact the covering watch case polisher. UNLOADER * Plan of Care - Joann Hurtado RN - 11/15/2023 7:08 AM MOLD UNLOADER Goals: Problem: Activity: Goal: Mobility will improve [...] stable. Neuro checks unchanged. Patient rested overnight. UNLOADER * Plan of Care - Radha Hancock [...] and is A&Ox4. Will continue to monitor. UNLOADER * Plan of Care - Josiane Blakely [...] plan Support following discharge: spouse Val Evans [phone]/facility Transportation: to be arranged prior to discharge F/U Appointments: to be scheduled by primary team Patient's Identified Problem/Goal Problem: Ensure acute medical needs are met and that patient has a safe discharge plan. Goal: Secure a discharge plan that patient/family are agreeable with and ensure patient has continuum of care. Patient and/or family are agreeable with plan. manager bench will continue to follow and assist with discharge planning as needed. If any further discharge needs arise, please contact the covering watch case polisher. UNLOADER * Plan of Care - Son Brown [...] Will remain free from infection Outcome: Progressing UNLOADER * Plan of Care - Pau Clifford [...] at this time. Plan of care ongoing. UNLOADER * Plan of Care - Josiane Blakely [...] therapy recs for IPR. Patient/spouse Irenehumaira Nathan [phone] prefer [facility] - electronic referral sent Support following discharge: spouse Val Finneganjacinda [phone]/facility Transportation: to be arranged prior to discharge F/U Appointments: to be scheduled by primary team Patient's Identified Problem/Goal Problem: Ensure acute medical needs are met and that patient has a safe discharge plan. Goal: Secure a discharge plan that patient/family are agreeable with and ensure patient has continuum of care. Patient and/or family are agreeable with plan. manager bench will continue to follow and assist with discharge planning as needed. If any further discharge needs arise, please contact the covering watch case polisher. UNLOADER * ECIN Note - Josiane Blakely RN [...] Meds/Most Recent Administrations protamine injection 40 mg [[id number]] Ordering Provider: Lex Carrillo III, MD Status: [...] Performed by: Jessenia Fox RN Scanned Package: [id number] acetaminophen (TYLENOL) tablet 1,000 mg [[id number]] Ordering Provider: Vicki Rehman NP Status: Dispensed Ordered On: 11/08/23 1141 Start: 11/08/23 1215 Ordered Dose (Remaining/Total): 1,000 mg (--/--) Route: oral Frequency: Every 6 hours Ordered Rate/Order Duration: -- / -- Timestamps Action Dose Route Other Information 11/12/23 1130 Given 1,000 mg oral Performed by: Portillo Cordero RN Scanned Package: [id number], [id number] dexAMETHasone (DECADRON) 4 mg/mL injection 4 mg [[id number]] Ordering Provider: Vicki Rehman NP Status: Dispensed [...] Performed by: Portillo Cordero RN Scanned Package: 20068-918-[address] (PROTONIX) extended release tablet 40 mg [[id number]] Ordering Provider: Vicki Rehman NP Status: Dispensed Ordered On: 11/08/23 120 Start: 11/08/23 1245 Ordered Dose (Remaining/Total): 40 mg (--/--) Route: oral Frequency: Daily Ordered Rate/Order Duration: -- / -- Admin Instructions: Do not crush, chew, cut, dissolve, open or otherwise manipulate tablet/capsule. Timestamps Action Dose Route Other Information 11/12/23 0857 Given 40 mg oral Performed by: Portillo Cordero RN Scanned Package: [id number] levETIRAcetam (KEPPRA) tablet 1,000 mg [[id number]] Ordering Provider: Vicki Rehman NP Status: Dispensed Ordered On: 11/08/23 1204 Start: 11/08/23 1245 Ordered Dose (Remaining/Total): 1,000 mg (--/--) Route: oral Frequency: 2 times daily Ordered Rate/Order Duration: -- / -- Timestamps Action Dose Route Other Information 11/12/23 0856 Given 1,000 mg oral Performed by: Portillo Cordero RN Scanned Package: 05467-130-58 gabapentin (NEURONTIN) capsule 300 mg [[id number]] Ordering Provider: Vicki Rehman NP Status: Dispensed Ordered On: 11/08/23 1204 Start: 11/08/23 1600 Ordered Dose (Remaining/Total): 300 mg (--/--) Route: oral Frequency: 3 times daily Ordered Rate/Order Duration: -- / -- Timestamps Action Dose Route Other Information 11/12/23 0857 Given 300 mg oral Performed by: Portillo Cordero RN Scanned Package: 92399-098-03 hydrALAZINE (APRESOLINE) injection 10 mg [[id number]] Ordering Provider: Vicki Rehman NP Status: Dispensed Ordered On: 11/08/23 1248 Start: 11/08/23 1248 Ordered Dose (Remaining/Total): 10 mg (--/--) Route: intravenous Frequency: Every 4 hours PRN Ordered Rate/Order Duration: -- / 2 Minutes Timestamps Action Dose / Duration Route Other Information 11/08/23 1254 Given 10 mg 2 Minutes intravenous Performed by: Hannah Jeffery RN Scanned Package: 98740-187-11 magnesium sulfate 2 g/50 mL in water (premix) 2 g [[id number]] Ordering Provider: Vicki Rehman NP Status: Completed (Past End Date/Time) Ordered On: 11/08/23 1322 Starts/Ends: 11/08/23 1400 - 11/08/23 1454 Ordered Dose (Remaining/Total): 2 g (0/1) Route: intravenous Frequency: Once Ordered Rate/Order Duration: -- / 60 Minutes Timestamps Action Dose / Duration Route Other Information 11/08/23 1354 New Bag 2 g 60 Minutes intravenous Performed by: Hannah Jeffery RN Scanned Package: 42575-391-81 ondansetron (ZOFRAN) injection 4 mg [[id number]] Ordering Provider: Vicki Rehman NP Status: Dispensed Ordered On: 11/08/23 1353 Start: 11/08/23 1352 Ordered Dose (Remaining/Total): 4 mg (--/--) Route: intravenous Frequency: Every 6 hours PRN Ordered Rate/Order Duration: -- / 2 Minutes Admin Instructions: 1st line Timestamps Action Dose / Duration Route Other Information 11/09/23 1322 Given 4 mg 2 Minutes intravenous Performed by: Lucio Gaines RN Scanned Package: [address]-9 ceFAZolin (ANCEF) 2,000 mg/20 mL in sterile water (premix) 2,000 mg [[id number]] Ordering Provider: Vicki Rehman NP Status: Dispensed [...] Cordero RN cetirizine (ZyrTEC) tablet 10 mg [[id number]] Ordering Provider: Vicki Rehman NP Status: Dispensed Ordered On: 11/08/23 1417 Start: 11/08/23 1500 Ordered Dose (Remaining/Total): 10 mg (--/--) Route: oral Frequency: Daily Ordered Rate/Order Duration: -- / -- Timestamps Action Dose Route Other Information 11/12/23 0856 Given 10 mg oral Performed by: Portillo Cordero RN Scanned Package: 0356-0706-74 cholecalciferol (VITAMIN D-3) capsule 5,000 Units [[id number]] Ordering Provider: Vicki Rehman NP Status: Dispensed Ordered On: 11/08/231416 Start: 11/08/23 1500 Ordered Dose (Remaining/Total): 5,000 Units (--/--) Route: oral Frequency: Daily Ordered Rate/Order Duration: -- / -- Admin Instructions: Each capsule contains 5,000 units (125 mcg) of cholecalciferol, Timestamps Action Dose Route Other Information 11/12/23 0857 Given 5,000 Units oral Performed by: Portillo Cordero RN Scanned Package: [id number] tamsulosin (FLOMAX) extended release capsule 0.8 mg [[id number]] Ordering Provider: Vicki Rehman NP Status: Dispensed [...] Performed by: Melissa Eddy RN Scanned Package: 17856-255-78, 25539-020-68 sodium chloride 0.9% flush 0.5-20 mL [[id number]] Ordering Provider: Aston Bragg MD Status: Verified Ordered On: 11/09/23 1620 Start: 11/09/23 1700 Ordered Dose (Remaining/Total): 0.5-20 mL (--/--) Route: intra-catheter Frequency: Every 8 hours scheduled Ordered Rate/Order Duration: -- / -- Admin Instructions: Flush volume based on line type and size. Timestamps Action Dose Route Other Information 11/12/23 0520 Given 10 mL intra-catheter Performed by: Madhav Hernandez RN Scanned Package: [id number] sodium chloride 0.9% flush 0.5-20 mL [[id number]] Ordering Provider: Aston Bragg MD Status: Verified Ordered On: 11/09/231619 Start: 11/09/231619 Ordered Dose (Remaining/Total): 0.5-20 mL (--/--) Route: intra-catheter Frequency: As needed Ordered Rate/Order Duration: -- / -- Admin Instructions: Flush volume based on line type and size. Flush before and after each use. (No admins scheduled or recorded for this medication) ondansetron (ZOFRAN) injection 4 mg [[id number]] Ordering Provider: Vicki Rehman NP Status: Completed (Past End Date/Time) Ordered On: 11/08/231708 Starts/Ends: 11/08/231744 - 11/08/231715 Ordered Dose (Remaining/Total): 4 mg (0) Route: intravenous Frequency: Once Ordered Rate/Order Duration: -- / 2 Minutes Timestamps Action Dose / Duration Route Other Information 11/08/231713 Given 4 mg 2 Minutes intravenous Performed by: Nkechi Gr RN Scanned Package: [address]-2 prochlorperazine (COMPAZINE) injection 5 mg [[id number]] Ordering Provider: Vicki Rehman NP Status: Dispensed Ordered On: 11/08/231708 Start: 11/08/231708 Ordered Dose (Remaining/Total): 5 mg (--/--) Route: intravenous Frequency: Every 6 hours PRN Ordered Rate/Order Duration: -- / 2 Minutes Timestamps Action Dose / Duration Route Other Information 11/09/23 1002 Given 5 mg 2 Minutes intravenous Performed by: Lucio Gaines RN Scanned Package: 03913-564-59 cyclobenzaprine (FLEXERIL) tablet 5 mg [[id number]] Ordering Provider: Vicki Rehman NP Status: Dispensed Ordered On: 11/08/231709 Start: 11/08/231708 Ordered Dose (Remaining/Total): 5 mg (--/--) Route: oral Frequency: 3 times daily PRN Ordered Rate/Order Duration: -- / -- Timestamps Action Dose Route Other Information 11/08/231804 Given 5 mg oral Performed by: Eula Coffey RN Scanned Package: 02755-804-55 ramelteon (ROZEREM) tablet 8 mg [[id number]] Ordering Provider: Nuvia Cantu NP Status: Dispensed Ordered On: 11/08/232037 Start: 11/08/232114 Ordered Dose (Remaining/Total): 8 mg (--/--) Route: oral Frequency: Nightly Ordered Rate/Order Duration: -- / -- Timestamps Action Dose Route Other Information 11/11/232138 Given 8 mg oral Performed by: Madhav Hernandez RN Scanned Package: 23897-480-50 traZODone (DESYREL) tablet 50 mg [[id number]] Ordering Provider: Nuvia Cantu NP Status: Completed (Past End Date/Time) Ordered On: 11/08/232109 Starts/Ends: 11/08/232144 - 11/08/232114 Ordered Dose (Remaining/Total): 50 mg (0/1) Route: oral Frequency: Once Ordered Rate/Order Duration: -- / -- Timestamps Action Dose Route Other Information 11/08/232114 Given 50 mg oral Performed by: Johnie Arredondo RN Scanned Package: 22358-896-21 oxyCODONE (ROXICODONE) tablet 5 mg [[id number]] Ordering Provider: Alonso Burks MD Status: Completed (Past End Date/Time) Ordered On: 11/08/232257 Starts/Ends: 11/08/232329 - 11/08/232303 Ordered Dose (Remaining/Total): 5 mg (0/1) Route: oral Frequency: Once Ordered Rate/Order Duration: -- / -- Timestamps Action Dose Route Other Information 11/08/232303 Given 5 mg oral Performed by: Johnie Arredondo RN Scanned Package: 82938-186-01 Lactated Ringer's (LR) bolus 500 mL [[id number]] Ordering Provider: Nuvia Cantu NP Status: Completed [...] Performed by: Johnie Arredondo RN Scanned Package: 8715-2780-56 midazolam (VERSED) 1 mg/mL injection [[id number]] Ordering Provider: Honorio Hannon MD Status: Completed (Past End Date/Time) Ordered On: 11/09/23 0808 Frequency: As needed Line Med Link Info Comment Peripheral IV 11/08/23 20 G Left Forearm 11/09/23 0808 by Tamia Schroeder RN -- Timestamps Action Dose Route Other Information 11/09/23 08 Given 1 mg intravenous Performed by: Tamia Schroeder RN fentaNYL (SUBLIMAZE) preservative free injection [[id number]] Ordering Provider: Honorio Hannon MD Status: Completed (Past End Date/Time) Ordered On: 11/09/23 0808 Frequency: As needed Line Med Link Info Comment Peripheral IV 11/08/23 20 G Left Forearm 11/09/23 0808 by Tamia Schroeder RN -- Timestamps Action Dose Route Other Information 11/09/23 08 Given 50 mcg intravenous Performed by: Tamia Schroeder RN lidocaine PF (XYLOCAINE) 10 mg/mL (1 %) preservative free injection [[id number]] Ordering Provider: Honorio Hannon MD Status: Completed (Past End Date/Time) Ordered On: 11/09/23 0809 Frequency: As needed Timestamps Action Dose Route Other Information 11/09/23 0809 Given 4 mL Injection Performed by: Tamia Schroeder RN Comments: R Neck ioversoL (OPTIRAY 350) injection [[id number]] Ordering Provider: Honorio Hannon MD Status: Completed (Past End Date/Time) Ordered On: 11/09/23 0837 Frequency: As needed Timestamps Action Dose Route / Site / Linked Line Other Information 11/09/23 0837 Given 100 mL -- Performed by: Honorio Hannon MD Documented by: Tamia Schroeder RN acyclovir (ZOVIRAX) tablet 400 mg [[id number]] Ordering Provider: Vicki Rehman NP Status: Dispensed Ordered On: 11/09/23 0956 Start: 11/09/23 1030 Ordered Dose (Remaining/Total): 400 mg (--/--) Route: oral Frequency: 2 times daily Ordered Rate/Order Duration: -- / -- Timestamps Action Dose Route Other Information 11/12/23 0856 Given 400 mg oral Performed by: Portillo Cordero RN Scanned Package: 45714-069-98 ioversoL (OPTIRAY 350) syringe 100 mL [[id number]] Ordering Provider: Vicki Rehman NP Status: Completed (Past End Date/Time) Ordered On: 11/09/23 120 Starts/Ends: 11/09/23 1208 - 11/09/23 1223 Ordered Dose (Remaining/Total): 100 mL (0/1) Route: intravenous Frequency: Once in imaging Ordered Rate/Order Duration: -- / -- Timestamps Action Dose Route Other Information 11/09/23 1223 Contrast Given 63 mL intravenous Performed by: Silver Magdaleno RT dextrose gel in packet 15 g [[id number]] Ordering Provider: Vicki Rehman NP Status: Verified [...] medication) dextrose (D10W) 10% bolus 250 mL [[id number]] Ordering Provider: Vicki Rehman NP Status: Verified [...] hour post treatment. If BG is less dtla464 mg/dL, repeat Q15 minute BG checks and treatment. Call MD for each episode of hypoglycemia. (No admins scheduled or recorded for this medication) glucagon injection 1 mg [[id number]] Ordering Provider: Vicki Rehman NP Status: Verified [...] (HumaLOG, ADMELOG) 100 unit/mL injection 0-10 Units [[id number]] Ordering Provider: Vicki Rehman NP Status: Dispensed [...] Performed by: Portillo Cordero RN Scanned Package: 3204-0868-28 insulin lispro (HumaLOG, ADMELOG) 100 unit/mL injection 0-5 Units [[id number]] Ordering Provider: Vicki Rehman NP Status: Dispensed [...] Performed by: Madhav Hernandez RN Scanned Package: 3483-9867-37 senna-docusate (PERICOLACE) 8.6-50 mg per tablet 2 tablet [[id number]] Ordering Provider: Dorie Sofia NP Status: Dispensed Ordered On: 11/10/23 1035 Start: 11/10/23 1115 Ordered Dose (Remaining/Total): 2 tablet (--/--) Route: oral Frequency: 2 times daily Ordered Rate/Order Duration: -- / -- Timestamps Action Dose Route Other Information 11/11/23 0838 Given 2 tablet oral Performed by: Melissa Eddy RN Scanned Package: 7844-9477-07, 7695-7319-16 bisacodyL (DULCOLAX) suppository 10 mg [[id number]] Ordering Provider: Dorie Sofia NP Status: Dispensed Ordered On: 11/10/23 1035 Start: 11/10/23 1115 Ordered Dose (Remaining/Total): 10 mg (--/--) Route: rectal Frequency: Daily Ordered Rate/Order Duration: -- / -- Timestamps Action Dose Route Other Information 11/10/23 1636 Given 10 mg rectal Performed by: Melissa Eddy RN Comments: patientt request Scanned Package: 8648-1541-49 lactulose 0.67 gram/mL oral solution 20 g [[id number]] Ordering Provider: Dorie Sofia NP Status: Completed (Past End Date/Time) Ordered On: 11/10/23 1634 Starts/Ends: 11/10/23 1715 - 11/10/23 1719 Ordered Dose (Remaining/Total): 20 g (0/1) Route: oral Frequency: Once Ordered Rate/Order Duration: -- / -- Timestamps Action Dose Route Other Information 11/10/23 1719 Given 20 g oral Performed by: Melissa Eddy RN Scanned Package: 0550-2285-76 sodium chloride 0.9% IVPB 0-250 mL [[id number]] Ordering Provider: Dorie Sofia NP Status: Completed [...] Performed by: Melissa Eddy RN Scanned Package: 2970-7644-41 vancomycin 1,000 mg/200 mL in dextrose 5% (premix) 1,000 mg [[id number]] Ordering Provider: Francisco Javier Aleman NP Status: Dispensed Ordered On: 11/12/23 0758 Start: 11/12/23 1800 Ordered Dose (Remaining/Total): 1,000 mg (--/--) Route: intravenous Frequency: Every 12 hours Ordered Rate/Order Duration: -- / 60 Minutes (No admins scheduled or recorded for this medication) lidocaine PF (XYLOCAINE) 10 mg/mL (1 %) preservative free injection 100 mg [[id number]] Ordering Provider: Nasir Manzanares MD Status: Dispensed Ordered On: 11/12/23 08 Starts/Ends: 11/12/23 08 - 11/13/23 0845 Ordered Dose (Remaining/Total): 10 mL (1) Route: infiltration Frequency: Once Ordered Rate/Order Duration: -- / -- (No admins scheduled or recorded for this medication) traMADoL (ULTRAM) tablet 50 mg [[id number]] Ordering Provider: Nasir Manzanares MD Status: Completed (Past End Date/Time) Ordered On: 11/12/23 0904 Starts/Ends: 11/12/23 0945 - 11/12/23 0915 Ordered Dose (Remaining/Total): 50 mg (0) Route: oral Frequency: Once Ordered Rate/Order Duration: -- / -- Timestamps Action Dose Route Other Information 11/12/23 0915 Given 50 mg oral Performed by: Portillo Cordero RN Scanned Package: 25498-846-07 , OT Eval and Treat Last 73 [...] Equipment-Currently Using Wheeled walker -BB Level of [place] Independent with ADLs;Independent functional transfers;Independent with ambulation;Needs assistance with homemaking -BB Lives With Spouse -BB Receives Help From Spouse/Significant other;Family multimedia authoring specialist assist available -BB Driving Yes has not driven for several weeks -BB ADL Assistance Independent pts provided spv in the last few weeks -BB Instrumental ADL (IADL) Assistance -- completed by /family -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 -BB Fall within the last 6 months [...] performing ADLs with supervision -AR Level of [place] Independent functional transfers;Independent with ambulation -AR Lives [...] patient to new unit Once (Routine) Question: ([facility]) Service: Answer: Ortho 11/09/23 1208 , Wound [...] 105 93 - 95 95 11/12 947 UNLOADER * Plan of Care - Melissa Eddy [...] risk of falls will improve Outcome: Progressing UNLOADER * Plan of Care - Melissa Eddy [...] increase the pain will improve Outcome: Progressing UNLOADER * Initial Assessments - Arlyn Suresh MSW [...] : Yes-DPOA DPOA Name/Phone: Val Evans Spouse [phone] 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 (11/10/23 1503) Current Situation: Current Situation Living Arrangements: Spouse/significant other Type of Residence: Private residence Income: Employed, Nursing Home/Pension Income Comment: Patient works full-time. Spouse recieves usp income and SS. Education Level : Advanced [...] Children Spouse Name/Contact Information: Val Evans Spouse [phone] Children Name/Contact Information: Marcial Evans Son [phone],Stefan Evans Son [phone], Mary Pina Daughter [phone] Do you have a Catholic Preference or Affiliation?: Yes Preference/Affiliation : Atheist Are there any Catholic Practices that are important to maintain while [...] More than three times a week Attends Catholic Services: Never Active Member of Clubs or [...] source for support and Val Evans (Spouse) ([phone]) is identified as surrogate decision maker. Predictive [...] Case management following for discharge. GEN Alvarez Design Engineer Marine Equipment Please refer to [facility] chart for contact information UNLOADER * Plan of Care - Son Brown [...] Will remain free from infection Outcome: Progressing UNLOADER * Plan of Deny - Kasey Emmanuel RN - 11/09/2023 4:05 PM MOLD UNLOADER Problem: Lack of Knowledge: Goal: Understanding of [...] IVC filter placement. Patient successfully transferred to [facility]. Patient reports minimal pain at this time. UNLOADER * Initial Assessments - Melissa Barker RN - 11/09/2023 3:32 PM CST CM Initial Assessment Interview Note Information Obtained From: Other (Specify) Name: per chart review (11/09/231512) Admission Source: OSH Impression: 73 year old male admitted for paralysis of both lower limbs Plan Includes: Discharge patient to appropriate level of care when medically stable. manager bench will continue to follow and assess for discharge needs. Primary Source of Transportation: Does the patient need discharge transport arranged?: No (family) (11/09/231512) Health Insurance Coverage: [facility] Medicare Prescription Coverage: yes Pharmacy: [facility] [address] [place] [phone] [facility] [place] [address] [facility] [address] Primary Care Provider: Rl Medina DO Prior to Admission: Primary Caregiver: Self Support System: Spouse/Significant Other, Children Home Care Services: No (recent discharge from [facility] on 10/30 and unable to find home care at that time) Durable Medical Equipment: Cane (single prong), Walker (wheeled) Living Arrangements: Spouse/significant other Type of Residence: Private residence Medication management: Independent (11/09/231512) Potential discharge needs include: Home Health: Physical therapy, Occupational therapy, residential (11/09/231512) Behavioral Health Services: Behavioral Health Services: [...] Collaboration with patient, MD, direct care nurse, Design Engineer Marine Equipment, and other members of the health care team to assure needed interventions completed. 2. Return patient to optimal level of self-care post discharge. 3. Supervisor Salvage will follow for Discharge Planning - interventions [...] with the aftercare plan. Melissa Barker RN UNLOADER * Significant Event - Vicki Rehman NP - 11/09/2023 2:09 PM MOLD UNLOADER CHUGG-OUT (SICU to OU/Floor Transfer) SICU MD [...] of the Ortho spine service. QUESTIONS? Call [phone] ([phone]). UNLOADER * Plan of Care - Damaris Maxwell LCSW - 11/09/2023 11:44 AM CST Patient flagged as a 30 day readmission. Patient is A&Ox1 and no family present at bedside. PerRN, patient's spouse intends to visit this afternoon. SW will attempt to complete assessment with spouse this afternoon. GEN Munoz, HOME ADVISOR UNLOADER * Plan of Care - Melissa Barker RN - 11/09/2023 10:38 AM MOLD UNLOADER CM received call from Medina from [facility] phone: [phone] ext [phone]. Wants to know if patient will need a swing bed on discharge? CM will follow for dc recommendations. Melissa Barker RN Case Management 11/09/2023 UNLOADER * Post-Procedure Note - Honorio Hannon MD - 11/09/2023 8:37 AM MOLD UNLOADER Radiology Brief Post Procedure Note Attending: Verena Shield Cleaner: Riddhi Sedation/Anesthesia: Min Sedation Pre-Op/Pre-Procedure Diagnosis: Pulmonary embolism Post-Op/Post-Procedure Diagnosis: same Procedure Performed: IVC filter placement Procedure Findings: successful placement of infrarenal Tulip IVC filter Complications: None Estimated Blood Loss: < 30 ml Specimens: None Condition: Stable Full report to follow. UNLOADER * Plan of Care - Johnie Arredondo RN - 11/08/2023 11:21 PM MOLD UNLOADER Goals: Clinical Goals for the Shift: pain [...] remain free from infection Outcome: Not Progressing UNLOADER * Plan of Care - Damaris Maxwell LCSW - 11/08/2023 3:16 PM CST Patient flagged as a 30 day readmission. SW attempted to meet with him to complete assessment, however he was with nursing staff and unavailable. SW will attempt again at a later time. GEN Munoz LCSW UNLOADER * Pre-Procedure Note - Aston Bragg MD - 11/08/2023 2:28 PM MOLD UNLOADER PRE-SEDATION ASSESSMENT/H&P Patient is a 73 y.o. [...] Date Noted Paralysis of both lower limbs ([facility]) ([facility] [...] sleep apnea 10/10/2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[facility]) ([facility] [...] (premix) 2,000 mg, 2,000 mg, intravenous, Q8H [facility], Vicki Rehman NP cetirizine (ZyrTEC) tablet 10 [...] been discussed with the patient and/or their hospital sales representative. All questions answered and they agree to proceed. UNLOADER * Op Note - Marcial Vu MD - 11/08/2023 4:57 AM CST Operative Report Surgeon Marcial Vu MD Machine Puller(s) MD Avila Fontenot MD Michele Christy, MD [...] the left quadriceps weakness with my senior stock plan administrator prior to developing a final surgical plan. [...] a left ureteral stone and was admitted [facility] on October 12, 2023. The decision was [...] hematoma and requested that they present to [facility] Emergency Department immediately. His imaging demonstrated a [...] on Discharge Stable. Marcial Vu Jr., MD Lead Ramp Agent Department of Orthopaedic Surgery Division of Spine Surgery [facility] [place], [place] Operative Report dictated by Marcial Vu MD on 11/09/23 using Fluency Direct. Transcriptionvariances may occur. UNLOADER UNLOADER UNLOADER * Brief Op Note - Nasir Manzanares MD - 11/08/2023 4:57 AM CST Operative Progress Note Surgical Team: Surgeon(s) and Role: * Marcial Vu MD - Primary * Simeon Cuevas MD - Assisting * Avila Esqueda MD - Resident - Assisting Anesthesiologist: Edmond Barker MD; Hood Kim MD Hollow Handle Knife Assembler: George Plummer MD; Javad Morales MD Broth Mixer: Silver Chow RN; Aranza Mariano RN Broth Mixer Relief: Justin Odonnell RN Scrub: Paige Vega ST; Anjana Glaser RN; Linda Tompkins RN Resource Development Manager: Adia Poe MT Broth Mixer Second: Aileen Morales RN; Jamaica Dunlap RN [...] Marcial Vu MD at 11/08/2023 4:23 PM MOLD UNLOADER UNLOADER UNLOADER * ED Procedure Note - Eula Wagoner MD - 11/08/2023 2:18 AM MOLD UNLOADER Associated Order(s): Critical Care Procedure Critical Care [...] medical record. Eula Wagoner MD 11/08/23 0219 UNLOADER * ED Re-evaluation Note - Abdi Dwyer MD - 11/07/2023 11:04 PM MOLD UNLOADER ED Re-evaluation TRANSITION OF CARE: I, Abdi [...] Ayala MD Time: 11/07 2238 Comment: Called [facility] MRI. Patient is on the schedule for 2329 and is the next patient. By: Deisy Ayala MD Time: 11/08 56 Comment: Ortho spine requested CT of CT and L-spine non con. They are planning for OR By: Abdi Dwyer MD Final diagnoses: Paralysis of both lower limbs (CMS/HCC) (HCC) Abdi Dwyer MD Resident 11/11/23 1626 UNLOADER * ED Procedure Note - Temo Hampton [...] the admitting team. Temo Hampton MD 11/07/23 7563 UNLOADER * Zehra of Deny - Latha Gaston RN - 11/07/2023 9:00 PM CST As part of the readmission prevention initiative, ED CM receives an automated alert on patient who was discharged from [facility] inpatient admission </=7 days (DC 10/30/23; ED treatment team aware). Per EMR, pt activity enrolled with [facility]), so full chart review not completed. Secure message received from [facility] (Outpatient Supervisor Salvage) confirming follow and willingness to provide assistance as needed. For questions or care management/discharge assistance please contact workers' compensation hearings officer [facility] #[phone], ED CM [phone], or ED SW [phone]. UNLOADER * ED Pre-Arrival Note - Niyah Anderson RN - 11/07/2023 7:23 PM MOLD UNLOADER Pre-Arrival Note 73 M- Presented to OSH with c/o BLE numbness and tingling, unable to ambulate. Post-op 10/19/23, laminectomy on L4/L5 with Dr. Vu, concern for hematoma. Accepted to ED by Dr. Moises Anderson RN UNLOADER documented in this encounter Plan of Treatment Pending Results Name Type Priority Associated Diagnoses Date /Time Basic metabolic panel Lab Routine 03/2024 11:30 PM MOLD UNLOADER Lidocaine level Lab Routine 11:13 PM MOLD UNLOADER Scheduled Orders Name Type Priority Associated Diagnoses [...] GLUCOSE DEVICE Routine 11/16/2023 1 1:35 AM MOLD UNLOADER POCT GLUCOSE DEVICE Routine 11/16/2023 7 :53 AM MOLD UNLOADER POCT GLUCOSE DEVICE Routine 11/15/2023 9 :20 PM MOLD UNLOADER EGFR Timed 11/15/2023 9:18 PM MOLD UNLOADER CBC WITHOUT DIFFERENTIAL Timed 11/15/2023 9:18 PM MOLD UNLOADER PHOSPHORUS Timed 11/15/2023 9:18 PM MOLD UNLOADER MAGNESIUM Timed 11/15/2023 9:18 PM MOLD UNLOADER BASIC METABOLIC PANEL Timed 11/15/2023 9:18 PM MOLD UNLOADER POCT GLUCOSE DEVICE Routine 11/15/2023 5 :17 PM MOLD UNLOADER POCT GLUCOSE DEVICE Routine 11/15/2023 1 2:20 PM MOLD UNLOADER POCT GLUCOSE DEVICE Routine 11/15/2023 8 :02 AM MOLD UNLOADER POCT GLUCOSE DEVICE Routine 11/14/2023 8 :39 PM MOLD UNLOADER POCT GLUCOSE DEVICE Routine 11/14/2023 5 :44 PM MOLD UNLOADER XR SPINE THORACIC 2 VIEWS IP Routine 11/14/2023 1:51 PM MOLD UNLOADER XR SPINE LUMBAR 2 OR 3 VIEWS IP Routine 11/14/2023 1:51 PM MOLD UNLOADER XR SPINE CERVICAL 2 OR 3 VIEWS IP Routine 11/14/2023 1:50 PM MOLD UNLOADER POCT GLUCOSE DEVICE Routine 11/14/2023 1 1:52 AM MOLD UNLOADER POCT GLUCOSE DEVICE Routine 11/14/2023 8 :04 AM MOLD UNLOADER POCT GLUCOSE DEVICE Routine 11/13/2023 8 :11 PM MOLD UNLOADER EGFR Timed 11/13/2023 8:07 PM MOLD UNLOADER CBC WITHOUT DIFFERENTIAL Timed 11/13/2023 8:07 PM MOLD UNLOADER PHOSPHORUS Timed 11/13/2023 8:07 PM MOLD UNLOADER MAGNESIUM Timed 11/13/2023 8:07 PM MOLD UNLOADER BASIC METABOLIC PANEL Timed 11/13/2023 8:07 PM MOLD UNLOADER POCT GLUCOSE DEVICE Routine 11/13/2023 4 :58 PM MOLD UNLOADER POCT GLUCOSE DEVICE Routine 11/13/2023 1 2:22 PM MOLD UNLOADER POCT GLUCOSE DEVICE Routine 11/13/2023 7 :34 AM MOLD UNLOADER POCT GLUCOSE DEVICE Routine 11/12/2023 9 :34 PM MOLD UNLOADER POCT GLUCOSE DEVICE Routine 11/12/2023 5 :15 PM MOLD UNLOADER POCT GLUCOSE DEVICE Routine 11/12/2023 1 1:25 AM MOLD UNLOADER POCT GLUCOSE DEVICE Routine 11/12/2023 7 :59 AM MOLD UNLOADER POCT GLUCOSE DEVICE Routine 11/11/2023 9 :38 PM MOLD UNLOADER EGFR Routine 11/11/2023 9:35 PM MOLD UNLOADER CBC WITHOUT DIFFERENTIAL Routine 11/11/2023 9:35 PM MOLD UNLOADER PHOSPHORUS Routine 11/11/2023 9:35 PM MOLD UNLOADER MAGNESIUM Routine 11/11/2023 9:35 PM MOLD UNLOADER BASIC METABOLIC PANEL Routine 11/11/2023 9:35 PM MOLD UNLOADER POCT GLUCOSE DEVICE Routine 11/11/2023 5 :37 PM MOLD UNLOADER CBC WITHOUT DIFFERENTIAL Routine 11/11/2023 5:08 PM MOLD UNLOADER VANCOMYCIN LEVEL TROUGH Timed 11/11/2023 2:44 PM MOLD UNLOADER TRANSFUSE RED BLOOD CELLS Timed 11/11/2023 12:56 PM MOLD UNLOADER POCT GLUCOSE DEVICE Routine 11/11/2023 1 2:11 PM MOLD UNLOADER TYPE AND SCREEN Timed 11/11/2023 11:29 AM MOLD UNLOADER PREPARE RBC Timed 11/11/2023 10:08 AM MOLD UNLOADER POCT GLUCOSE DEVICE Routine 11/11/2023 8 :33 AM MOLD UNLOADER EGFR Routine 11/10/2023 11:13 PM MOLD UNLOADER LIDOCAINE LEVEL Routine 11/10/2023 11:13 PM MOLD UNLOADER CBC WITHOUT DIFFERENTIAL Routine 11/10/2023 11:13 PM MOLD UNLOADER PHOSPHORUS Routine 11/10/2023 11:13 PM MOLD UNLOADER MAGNESIUM Routine 11/10/2023 11:13 PM MOLD UNLOADER BASIC METABOLIC PANEL Routine 11/10/2023 11:13 PM MOLD UNLOADER POCT GLUCOSE DEVICE Routine 11/10/2023 8 :50 PM MOLD UNLOADER POCT GLUCOSE DEVICE Routine 11/10/2023 5 :31 PM MOLD UNLOADER POCT GLUCOSE DEVICE Routine 11/10/2023 1 1:47 AM MOLD UNLOADER POCT GLUCOSE DEVICE Routine 11/10/2023 8 :00 AM MOLD UNLOADER VANCOMYCIN LEVEL TROUGH Timed 11/10/2023 2:59 AM MOLD UNLOADER EGFR Routine 11/09/2023 11:30 PM MOLD UNLOADER LIDOCAINE LEVEL Routine 11/09/2023 11:30 PM MOLD UNLOADER CBC WITHOUT DIFFERENTIAL Routine 11/09/2023 11:30 PM MOLD UNLOADER BASIC METABOLIC PANEL Routine 11/09/2023 11:30 PM MOLD UNLOADER EGFR Routine 11/09/2023 8:41 PM MOLD UNLOADER CBC WITHOUT DIFFERENTIAL Routine 11/09/2023 8:41 PM MOLD UNLOADER PHOSPHORUS Routine 11/09/2023 8:41 PM MOLD UNLOADER MAGNESIUM Routine 11/09/2023 8:41 PM MOLD UNLOADER BASIC METABOLIC PANEL Routine 11/09/2023 8:41 PM MOLD UNLOADER POCT GLUCOSE DEVICE Routine 11/09/2023 8 :38 PM MOLD UNLOADER POCT GLUCOSE DEVICE Routine 11/09/2023 4 :47 PM MOLD UNLOADER POCT GLUCOSE DEVICE Routine 11/09/2023 3 :[address] CHEST PE W CONTRAST IP Routine 11/09/2023 12:22 PM MOLD UNLOADER LIDOCAINE LEVEL Timed 11/09/2023 11:43 AM MOLD UNLOADER POCT GLUCOSE DEVICE Routine 11/09/2023 1 1:04 AM MOLD UNLOADER CRITICAL CARE Routine 11/09/2023 9:22 AM MOLD UNLOADER Paralysis of both lower limbs (CMS/HCC) (HCC) INSERT VENA CAVA FILTER IP Routine 11/09/2023 8:47 AM MOLD UNLOADER POCT GLUCOSE DEVICE Routine 11/09/2023 7 :07 AM MOLD UNLOADER POCT GLUCOSE DEVICE Routine 11/09/2023 3 :24 AM MOLD UNLOADER POCT GLUCOSE DEVICE Routine 11/08/2023 1 1:49 PM MOLD UNLOADER EGFR Routine 11/08/2023 9:01 PM MOLD UNLOADER CBC WITHOUT DIFFERENTIAL Routine 11/08/2023 9:01 PM MOLD UNLOADER PHOSPHORUS Routine 11/08/2023 9:01 PM MOLD UNLOADER MAGNESIUM Routine 11/08/2023 9:01 PM MOLD UNLOADER BASIC METABOLIC PANEL Routine 11/08/2023 9:01 PM MOLD UNLOADER POCT GLUCOSE DEVICE Routine 11/08/2023 7 :10 PM MOLD UNLOADER CRITICAL CARE Routine 11/08/2023 6:15 PM MOLD UNLOADER Paralysis of both lower limbs (CMS/HCC) (HCC) US VEIN DUPLEX LOWER EXTREMITY BILATERAL COMPLETE ED Urgent/IP Urgent 11/08/2023 3:07 PM MOLD UNLOADER POCT GLUCOSE DEVICE Routine 11/08/2023 3 :05 PM MOLD UNLOADER CRITICAL CARE Routine 11/08/2023 12:12 PM MOLD UNLOADER EGFR STAT 11/08/2023 11:51 AM MOLD UNLOADER CALCIUM, IONIZED STAT 11/08/2023 11:5 1 AM MOLD UNLOADER PROTIME-INR STAT 11/08/2023 11:51 AM MOLD UNLOADER CBC WITHOUT DIFFERENTIAL STAT 11/08/2023 11:51 AM MOLD UNLOADER PHOSPHORUS STAT 11/08/2023 11:51 AM MOLD UNLOADER MAGNESIUM STAT 11/08/2023 11:51 AM MOLD UNLOADER BASIC METABOLIC PANEL STAT 11/08/2023 11:51 AM MOLD UNLOADER POCT GLUCOSE DEVICE Routine 11/08/2023 1 1:41 AM MOLD UNLOADER TRANSFUSE PLASMA Timed 11/08/2023 9:32 AM MOLD UNLOADER POC BLOOD GAS AND CHEMISTRIES, ARTERIAL Routine 11/08/2023 8:22 AM MOLD UNLOADER TRANSFUSE RED BLOOD CELLS Timed 11/08/2023 7:36 AM MOLD UNLOADER POC BLOOD GAS AND CHEMISTRIES, ARTERIAL Routine 11/08/2023 7:05 AM MOLD UNLOADER POC BLOOD GAS AND CHEMISTRIES, ARTERIAL Routine 11/08/2023 6:00 AM MOLD UNLOADER TRANSFUSE RED BLOOD CELLS Timed 11/08/2023 5:58 AM MOLD UNLOADER TRANSFUSE RED BLOOD CELLS Timed 11/08/2023 4:52 AM MOLD UNLOADER POC BLOOD GAS AND CHEMISTRIES, ARTERIAL Routine 11/08/2023 4:18 AM MOLD UNLOADER REPAIR DURAL TEAR 11/08/2023 2:5 8 AM MOLD UNLOADER Paralysis of both lower limbs (CMS/HCC) ([facility]) Case Notes Called [facility] Gene [phone] @ 0208 notified him we need him for emergent spine case in 235, he said It might be a while but he will be there. SPINAL CORD MONITORING 11/08/2023 2:58 AM MOLD UNLOADER Paralysis of both lower limbs (CMS/HCC) ([facility]) Case Notes Called [facility] Gene [phone] @ 0208 notified him we need him for emergent spine case in 235, he said It might be a while but he will be there. LAMINECTOMY LUMBAR - POSTERIOR 11/08/2023 2:58 AM MOLD UNLOADER Paralysis of both lower limbs (CMS/HCC) ([facility]) Case Notes Called [facility] Gene [phone] @ 0208 notified him we need him for emergent spine case in 235, he said It might be a while but he will be there. LAMINECTOMY THORACIC DECOMPRESSION 11/08/2023 2:58 AM MOLD UNLOADER Paralysis of both lower limbs (CMS/HCC) ([facility]) Case Notes Called [facility] Gene [phone] @ 0208 notified him we need him for emergent spine case in 235, he said It might be a while but he will be there. PREPARE PLASMA STAT 11/08/2023 2:28 AM MOLD UNLOADER PREPARE RBC STAT 11/08/2023 2:28 AM MOLD UNLOADER ED CRITICAL CARE Routine 11/08/2023 2:[address] CERVICAL THORACIC LUMBAR SPINE WO CONTRAST ED Urgent/IP Urgent 11/08/2023 2:09 AM MOLD UNLOADER XR SPINE LUMBAR 2 OR 3 VIEWS ED Urgent/IP Urgent 11/08/2023 1:14 AM MOLD UNLOADER XR SPINE THORACIC 3 VIEWS ED Urgent/IP Urgent 11/08/2023 1:13 AM MOLD UNLOADER MRI SPINE TOTAL COMPLETE WO CONTRAST ED Urgent/IP Urgent 11/08/2023 12:44 AM MOLD UNLOADER EGFR STAT 11/07/2023 11:01 PM MOLD UNLOADER APTT STAT 11/07/2023 11:01 PM MOLD UNLOADER PROTIME-INR STAT 11/07/2023 11:01 PM MOLD UNLOADER CBC WITHOUT DIFFERENTIAL STAT 11/07/2023 11:01 PM MOLD UNLOADER TYPE AND SCREEN STAT 11/07/2023 11:01 PM MOLD UNLOADER BASIC METABOLIC PANEL STAT 11/07/2023 11:01 PM MOLD UNLOADER ID CRITICAL CARE ILL/INJURED PATIENT INIT 30-74 MIN Routine 11/07/2023 10:43 PM MOLD UNLOADER documented in this encounter Results * POCT glucose (11/16/2023 11:35 AM MOLD UNLOADER) Glucose, POC 166 70 - 199 mg/dL [facility] Blood 11/16/2023 11:3 5 AM MOLD UNLOADER 11/16/2023 11:35 AM MOLD UNLOADER Marcial Vu Jr., MD LAB POCT ORDERABLES - DEVICE Final Result [facility] [place] [address] * POCT glucose (11/16/2023 7:53 AM MOLD UNLOADER) Glucose, POC 142 70 - 199 mg/dL [facility] Blood 11/16/2023 7:53 AM MOLD UNLOADER 11/16/2023 7:53 AM MOLD UNLOADER us Marcial Vu Jr., MD LAB POCT ORDERABLES - DEVICE Final Result Performing Organization Address [facility] de Phone Number [facility] [place] [address] * POCT glucose (11/15/2023 9:20 PM MOLD UNLOADER) Glucose, POC 182 70 - 199 mg/dL [facility] Blood 11/15/2023 9:20 PM MOLD UNLOADER 11/15/2023 9:20 PM MOLD UNLOADER us Marcial Vu Jr., MD LAB POCT ORDERABLES - DEVICE Final Result Performing Organization Address [facility] de Phone Number [facility] [place] [employer] [place] [address] * eGFR (11/15/2023 9:18 PM MOLD UNLOADER) Pathologist [facility] eGFR >90 >=60 mL/min/1. 73 m2 [facility] Comment: Interpretive Data Reference Interval [...] last reviewed 2021. Blood 11/15/2023 9:18 PM MOLD UNLOADER 11/15/2023 9:38 PM MOLD UNLOADER Francisco Javier Aleman PENAL OFFICER LAB BLOOD ORDERABLES Fi nal Result Performing Organization Address City/[facility] Co de Phone Number [facility] [place] [employer] [place] [address] * Phosphorus (11/15/2023 9:18 PM MOLD UNLOADER) Phosphorus, pl 2.7 2.3 - 4.5 mg/dL [facility] Blood 11/15/2023 9:18 PM MOLD UNLOADER 11/15/2023 9:38 PM MOLD UNLOADER Francisco Javier Aleman NP LAB BLOOD ORDERABLES Fi nal Result Performing Organization Address [facility] Co de Phone Number [facility] Department [place] [employer] [place] [address] * Magnesium (11/15/2023 9:18 PM MOLD UNLOADER) Magnesium 2.1 1.4 - 2.5 mg/dL [facility] Blood 11/15/2023 9:18 PM MOLD UNLOADER 11/15/2023 9:38 PM MOLD UNLOADER Francisco Javier Aleman PENAL OFFICER LAB BLOOD ORDERABLES Fi nal Result Performing Organization Address City/[facility] Co de Phone Number [facility] Department [place] [address] * (ABNORMAL) CBC without differential (11/15/2023 9:18 PM MOLD UNLOADER) [facility] WBC 13.0(H) 3.8 - 9.9 K/cumm [facility] Hgb 9.1(L) 13.0 - 17.5 g/dL [facility] Hct 27.1(L) 38.9 - 50.3 % [facility] Plt 182 150 - 400 K/cumm [facility] MPV 11.2 9.1 - 12.3 fL [facility] RBC 2.99(L) 4.30 - 5.80 M/cumm [facility] MCV 90.6 81.3 - 96.4 fL [facility] MCH 30.4 27.1 - 33.3 pg [facility] MCHC 33.6 32.3 - 35.7 g/dL [facility] RDW CV 14.8 11.1 - 14.9 % [facility] RDW SD 47.6 35.7 - 48.1 fL [facility] NRBC abs 0.00 0.00 - 0.01 K/cumm [facility] Blood 11/15/2023 9:18 PM MOLD UNLOADER 11/15/2023 9:38 PM MOLD UNLOADER Francisco Javier Aleman PENAL OFFICER LAB BLOOD ORDERABLES nal Result [facility] Department [place] [address] * (ABNORMAL) Basic metabolic panel (11/15/2023 9:18 PM MOLD UNLOADER) [facility] Sodium 135 135 - 145 mmol/L [facility] Potassium, pl 4.1 3.3 - 4.9 mmol/L [facility] Chloride 103 97 - 110 mmol/L [facility] CO2 25 22 - 32 mmol/L [facility] Anion gap 7 2 - 15 mmol/L [facility] BUN 24 6 - 25 mg/dL [facility] Creatinine 0.72(L) 0.80 - 1.30 mg/dL [facility] Glucose 185 70 - 199 mg/dL [facility] Comment: Interpretive Data Fasting glucose [...] 2022. Calcium 8.0(L) 8.5 - 10.3 mg/dL [facility] Blood 11/15/2023 9:18 PM MOLD UNLOADER 11/15/2023 9:38 PM MOLD UNLOADER Francisco Javier Aleman NP LAB BLOOD ORDERABLES Fi nal Result Performing Organization Address [facility]/ZIP Co de Phone Number [facility] Department [place] [address] * POCT glucose (11/15/2023 5:17 PM MOLD UNLOADER) Glucose, POC 163 70 - 199 mg/dL [facility] Blood 11/15/2023 5:17 PM MOLD UNLOADER 11/15/2023 5:17 PM MOLD UNLOADER Marcial Vu Jr., MD LAB POCT ORDERABLES - DEVICE Final Result [facility] Department [place] [address] * POCT glucose (11/15/2023 12:20 PM MOLD UNLOADER) Glucose, POC 170 70 - 199 mg/dL [facility] Blood 11/15/2023 12:2 0 PM MOLD UNLOADER 11/15/2023 12:20 PM MOLD UNLOADER Marcial Vu Jr., MD LAB POCT ORDERABLES - DEVICE Final Result Performing Organization Address City/[facility]/ZIP Co de Phone Number [facility] [employer] [place] [address] * POCT glucose (11/15/2023 8:02 AM MOLD UNLOADER) Glucose, POC 157 70 - 199 mg/dL [facility] Blood 11/15/2023 8:02 AM MOLD UNLOADER 11/15/2023 8:02 AM MOLD UNLOADER Marcial Vu Jr., MD LAB POCT ORDERABLES - DEVICE Final Result Performing Organization Address [facility] [place] [address] * POCT glucose (11/14/2023 8:39 PM MOLD UNLOADER) Glucose, POC 180 70 - 199 mg/dL [facility] Blood 11/14/2023 8:39 PM MOLD UNLOADER 11/14/2023 8:39 PM MOLD UNLOADER Marcial Vu Jr., MD LAB POCT ORDERABLES - DEVICE Final Result Performing Organization Address [facility] Co de Phone Number [facility] [employer] [place] [address] * POCT glucose (11/14/2023 5:44 PM MOLD UNLOADER) Glucose, POC 193 70 - 199 mg/dL [facility] Blood 11/14/2023 5:44 PM MOLD UNLOADER 11/14/2023 5:44 PM MOLD UNLOADER Marcial Vu Jr., MD LAB POCT ORDERABLES - DEVICE Final Result Performing Organization Address City/[facility]/ZIP Co de Phone Number [facility] [place] [address] * XR Spine Thoracic 2 Views (11/14/2023 1:51 PM MOLD UNLOADER) Anatomical Region Laterality Modality Spine N/A Computed Radiogr aphy 11/14/2023 2:19 PM MOLD UNLOADER Impressions 11/14/2023 2:19 PM MOLD UNLOADER 1. ??Unchanged combined posterior and anterior instrumented L4-L5 fusion. Electronically signed by: Stefan Gee M.D. Narrative 11/14/2023 2:19 PM MOLD UNLOADER EXAMINATION: XR SPINE CERVICAL 2 OR 3 [...] Stefan Gee M.D. us Rosa M Myers PENAL OFFICER IMG XR PROCEDURES F inal Result * XR Spine Lumbar 2 or 3 Views (11/14/2023 1:51 PM MOLD UNLOADER) Anatomical Region Laterality Modality Spine N/A Computed Radiogr aphy 11/14/2023 2:19 PM MOLD UNLOADER Impressions 11/14/2023 2:19 PM MOLD UNLOADER 1. ??Unchanged combined posterior and anterior instrumented L4-L5 fusion. Electronically signed by: Stefan Gee M.D. Narrative 11/14/2023 2:19 PM MOLD UNLOADER EXAMINATION: XR SPINE CERVICAL 2 OR 3 [...] by: Stefan Gee M.D. Rosa M Myers PENAL OFFICER IMG XR PROCEDURES F inal Result * XR Spine Cervical 2 or 3 Views (11/14/2023 1:50 PM MOLD UNLOADER) Anatomical Region Laterality Modality Spine N/A Computed Radiogr aphy 11/14/2023 2:19 PM MOLD UNLOADER Impressions 11/14/2023 2:19 PM MOLD UNLOADER 1. ??Unchanged combined posterior and anterior instrumented L4-L5 fusion. Electronically signed by: Stefan Gee M.D. Narrative 11/14/2023 2:19 PM MOLD UNLOADER EXAMINATION: XR SPINE CERVICAL 2 OR 3 [...] by: Stefan Gee M.D. Rosa M Myers PENAL OFFICER IMG XR PROCEDURES F inal Result * POCT glucose (11/14/2023 11:52 AM MOLD UNLOADER) [facility] Signature Glucose, POC 150 70 - 199 mg/dL [facility] Blood 11/14/2023 11:5 2 AM MOLD UNLOADER 11/14/2023 11:52 AM MOLD UNLOADER Marcial Vu Jr., MD LAB POCT ORDERABLES - DEVICE Final Result [facility] Department [place] [address] * POCT glucose (11/14/2023 8:04 AM MOLD UNLOADER) Glucose, POC 144 70 - 199 mg/dL [facility] Blood 11/14/2023 8:04 AM MOLD UNLOADER 11/14/2023 8:04 AM MOLD UNLOADER Marcial Vu Jr., MD LAB POCT ORDERABLES - DEVICE Final Result Performing Organization Address [facility] de Phone Number [facility] Department [place] [address] * POCT glucose (11/13/2023 8:11 PM MOLD UNLOADER) Pathologist [facility] Glucose, POC 150 70 - 199 mg/dL [facility] Blood 11/13/2023 8:11 PM MOLD UNLOADER 11/13/2023 8:11 PM MOLD UNLOADER Marcial Vu Jr., MD LAB POCT ORDERABLES - DEVICE Final Result Performing Organization Address [facility] de Phone Number [facility] [place] [address] * eGFR (11/13/2023 8:07 PM MOLD UNLOADER) [facility] eGFR >90 >=60 mL/min/1. 73 m2 [facility] Comment: Interpretive Data Reference Interval [...] last reviewed 2021. Blood 11/13/2023 8:07 PM MOLD UNLOADER 11/13/2023 8:25 PM MOLD UNLOADER Francisco Javier Aleman PENAL OFFICER LAB BLOOD ORDERABLES Fi nal Result Performing Organization Address City/[facility] Co de Phone Number [facility] [place] [place] [address] * Phosphorus (11/13/2023 8:07 PM MOLD UNLOADER) Phosphorus, pl 2.7 2.3 - 4.5 mg/dL [facility] Blood 11/13/2023 8:07 PM MOLD UNLOADER 11/13/2023 8:20 PM MOLD UNLOADER Francisco Javier Aleman NP LAB BLOOD ORDERABLES Fi nal Result Performing Organization Address [facility] Co de Phone Number [facility] Department [place] [employer] [place] [address] * Magnesium (11/13/2023 8:07 PM MOLD UNLOADER) Magnesium 2.1 1.4 - 2.5 mg/dL [facility] Blood 11/13/2023 8:07 PM MOLD UNLOADER 11/13/2023 8:20 PM MOLD UNLOADER Francisco Javier Aleman NP LAB BLOOD ORDERABLES Fi nal Result Performing Organization Address City/[facility] Co de Phone Number [facility] Department [place] [address] * (ABNORMAL) CBC without differential (11/13/2023 8:07 PM MOLD UNLOADER) [facility] WBC 12.6(H) 3.8 - 9.9 K/cumm [facility] Hgb 9.1(L) 13.0 - 17.5 g/dL [facility] Hct 28.0(L) 38.9 - 50.3 % [facility] Plt 188 150 - 400 K/cumm [facility] MPV 11.3 9.1 - 12.3 fL [facility] RBC 3.06(L) 4.30 - 5.80 M/cumm [facility] MCV 91.5 81.3 - 96.4 fL [facility] MCH 29.7 27.1 - 33.3 pg [facility] MCHC 32.5 32.3 - 35.7 g/dL [facility] RDW CV 14.0 11.1 - 14.9 % [facility] RDW SD 45.8 35.7 - 48.1 fL [facility] NRBC abs 0.00 0.00 - 0.01 K/cumm [facility] Blood 11/13/2023 8:07 PM MOLD UNLOADER 11/13/2023 8:20 PM MOLD UNLOADER Francisco Javier Aleman NP LAB BLOOD ORDERABLES Fi nal Result [facility] Department [place] [address] * (ABNORMAL) Basic metabolic panel (11/13/2023 8:07 PM MOLD UNLOADER) [facility] Sodium 136 135 - 145 mmol/L [facility] Potassium, pl 4.6 3.3 - 4.9 mmol/L [facility] Chloride 102 97 - 110 mmol/L [facility] CO2 26 22 - 32 mmol/L [facility] Anion gap 8 2 - 15 mmol/L [facility] BUN 27(H) 6 - 25 mg/dL [facility] Creatinine 0.71(L) 0.80 - 1.30 mg/dL [facility] Glucose 138 70 - 199 mg/dL [facility] Comment: Interpretive Data Fasting glucose [...] 2022. Calcium 8.4(L) 8.5 - 10.3 mg/dL [facility] Blood 11/13/2023 8:07 PM MOLD UNLOADER 11/13/2023 8:20 PM MOLD UNLOADER Francisco Javier Aleman NP LAB BLOOD ORDERABLES Fi nal Result Performing Organization Address City/[facility]/ZIP Co de Phone Number [facility] Department [place] [address] * POCT glucose (11/13/2023 4:58 PM MOLD UNLOADER) Glucose, POC 188 70 - 199 mg/dL [facility] Blood 11/13/2023 4:58 PM MOLD UNLOADER 11/13/2023 4:58 PM MOLD UNLOADER Marcial Vu Jr., MD LAB POCT ORDERABLES - DEVICE Final Result [facility] Department [place] [employer] [place] [address] * POCT glucose (11/13/2023 12:22 PM MOLD UNLOADER) Glucose, POC 138 70 - 199 mg/dL [facility] Blood 11/13/2023 12:2 2 PM MOLD UNLOADER 11/13/2023 12:22 PM MOLD UNLOADER us Marcial Vu Jr., MD LAB POCT ORDERABLES - DEVICE Final Result Performing Organization Address [facility] de Phone Number [facility] [place] [address] * POCT glucose (11/13/2023 7:34 AM MOLD UNLOADER) Glucose, POC 138 70 - 199 mg/dL [facility] Blood 11/13/2023 7:34 AM MOLD UNLOADER 11/13/2023 7:34 AM MOLD UNLOADER us Marcial Vu Jr., MD LAB POCT ORDERABLES - DEVICE Final Result Performing Organization Address [facility] Phone Number [facility] [place] [address] * (ABNORMAL) POCT glucose (11/12/2023 9:34 PM MOLD UNLOADER) Glucose, POC 206(H) 70 - 199 mg/dL [facility] Blood 11/12/2023 9:34 PM MOLD UNLOADER 11/12/2023 9:34 PM MOLD UNLOADER us Marcial Vu Jr., MD LAB POCT ORDERABLES - DEVICE Final Result Performing Organization Address [facility] de Phone Number [facility] Department [place] [address] * POCT glucose (11/12/2023 5:15 PM MOLD UNLOADER) Glucose, POC 180 70 - 199 mg/dL [facility] Blood 11/12/2023 5:15 PM MOLD UNLOADER 11/12/2023 5:15 PM MOLD UNLOADER us Marcial Vu Jr., MD LAB POCT ORDERABLES - DEVICE Final Result Performing Organization Address [facility] [place] [address] * POCT glucose (11/12/2023 11:25 AM MOLD UNLOADER) Glucose, POC 161 70 - 199 mg/dL [facility] Blood 11/12/2023 11:2 5 AM MOLD UNLOADER 11/12/2023 11:25 AM MOLD UNLOADER Marcial Vu Jr., MD LAB POCT ORDERABLES - [place] [address] * POCT glucose (11/12/2023 7:59 AM MOLD UNLOADER) Glucose, POC 128 70 - 199 mg/dL [facility] Blood 11/12/2023 7:59 AM MOLD UNLOADER 11/12/2023 7:59 AM MOLD UNLOADER Macrial Vu Jr., MD LAB POCT ORDERABLES - DEVICE Final Result Performing Organization Address City/[facility]/[place] [address] * POCT glucose (11/11/2023 9:38 PM MOLD UNLOADER) Glucose, POC 166 70 - 199 mg/dL [facility] Blood 11/11/2023 9:38 PM MOLD UNLOADER 11/11/2023 9:38 PM MOLD UNLOADER Marcial Vu Jr., MD LAB POCT ORDERABLES - [place] [address] * eGFR (11/11/2023 9:35 PM MOLD UNLOADER) Pathologist [facility] eGFR >90 >=60 mL/min/1. 73 m2 [facility] Comment: Interpretive Data Reference Interval [...] last reviewed 2021. Blood 11/11/2023 9:35 PM MOLD UNLOADER 11/11/2023 9:54 PM MOLD UNLOADER Vicki Rehman NP LAB BLOOD ORDERABLES F inal Result [facility] Department of Laboratories [place], [place] [id number] * Phosphorus (11/11/2023 9:35 PM MOLD UNLOADER) [facility] Phosphorus, pl 2.4 2.3 - 4.5 mg/dL [facility] Blood 11/11/2023 9:35 PM MOLD UNLOADER 11/11/2023 9:54 PM MOLD UNLOADER Vicki Rehman PENAL OFFICER LAB BLOOD ORDERABLES F inal Result [facility] [place] [address] * Magnesium (11/11/2023 9:35 PM MOLD UNLOADER) [facility] Magnesium 2.1 1.4 - 2.5 mg/dL [facility] Blood 11/11/2023 9:35 PM MOLD UNLOADER 11/11/2023 9:54 PM MOLD UNLOADER Vicki Rehman NP LAB BLOOD ORDERABLES F inal Result Performing Organization Address [facility] Co de Phone Number [facility] [place] [address] * (ABNORMAL) CBC without differential (11/11/2023 9:35 PM MOLD UNLOADER) [facility] WBC 9.1 3.8 - 9.9 K/cumm [facility] Hgb 8.8(L) 13.0 - 17.5 g/dL [facility] Hct 25.8(L) 38.9 - 50.3 % [facility] Plt 187 150 - 400 K/cumm [facility] MPV 11.1 9.1 - 12.3 fL [facility] RBC 2.88(L) 4.30 - 5.80 M/cumm [facility] MCV 89.6 81.3 - 96.4 fL [facility] MCH 30.6 27.1 - 33.3 pg [facility] MCHC 34.1 32.3 - 35.7 g/dL [facility] RDW CV 13.8 11.1 - 14.9 % [facility] RDW SD 45.6 35.7 - 48.1 fL [facility] NRBC abs 0.00 0.00 - 0.01 K/cumm [facility] Blood 11/11/2023 9:35 PM MOLD UNLOADER 11/11/2023 9:54 PM MOLD UNLOADER Vicki Rehman NP LAB BLOOD ORDERABLES F inal Result Performing Organization Address City/[facility]/ZIP Co de Phone Number [facility] Department [place] [address] * (ABNORMAL) Basic metabolic panel (11/11/2023 9:35 PM MOLD UNLOADER) Pathologist [facility] Sodium 135 135 - 145 mmol/L [facility] Potassium, pl 4.6 3.3 - 4.9 mmol/L [facility] Chloride 103 97 - 110 mmol/L [facility] CO2 24 22 - 32 mmol/L [facility] Anion gap 8 2 - 15 mmol/L [facility] BUN 22 6 - 25 mg/dL [facility] Creatinine 0.81 0.80 - 1.30 mg/dL [facility] Glucose 159 70 - 199 mg/dL [facility] Comment: Interpretive Data Fasting glucose [...] 2022. Calcium 8.2(L) 8.5 - 10.3 mg/dL [facility] Blood 11/11/2023 9:35 PM MOLD UNLOADER 11/11/2023 9:54 PM MOLD UNLOADER Vicki Rehman NP LAB BLOOD ORDERABLES F inal Result Performing Organization Address City/[facility]/ZIP Co de Phone Number [facility] Department [place] [address] * POCT glucose (11/11/2023 5:37 PM MOLD UNLOADER) Glucose, POC 103 70 - 199 mg/dL [facility] Blood 11/11/2023 5:37 PM MOLD UNLOADER 11/11/2023 5:37 PM MOLD UNLOADER Marcial Vu Jr., MD LAB POCT ORDERABLES - DEVICE Final Result [facility] [place] [employer] [place] [address] * Transfuse RBC (11/11/2023 5:22 PM MOLD UNLOADER) Blood Dorie Sofia PENAL OFFICER BLOOD TRANSFUSION ORDER CLEMENTINE Final Result Performing Organization Address City/[facility] Co de Phone Number [facility] [employer] [place] [address] * Transfuse RBC: 1 Units (11/11/2023 5:22 PM MOLD UNLOADER) Blood Result [facility] Dorie Sofia NP BLOOD TRANSFUSION ORDER CLEMENTINE Final Result * (ABNORMAL) CBC without differential (11/11/2023 5:08 PM MOLD UNLOADER) [facility] WBC 10.1(H) 3.8 - 9.9 K/cumm [facility] Hgb 9.7(L) 13.0 - 17.5 g/dL [facility] Hct 29.6(L) 38.9 - 50.3 % [facility] Plt 226 150 - 400 K/cumm [facility] MPV 10.9 9.1 - 12.3 fL [facility] RBC 3.24(L) 4.30 - 5.80 M/cumm [facility] MCV 91.4 81.3 - 96.4 fL [facility] MCH 29.9 27.1 - 33.3 pg [facility] MCHC 32.8 32.3 - 35.7 g/dL [facility] RDW CV 13.9 11.1 - 14.9 % [facility] RDW SD 47.0 35.7 - 48.1 fL [facility] NRBC abs 0.00 0.00 - 0.01 K/cumm [facility] Blood 11/11/2023 5:08 PM MOLD UNLOADER 11/11/2023 5:32 PM MOLD UNLOADER Narrative [facility] - 11/11/2023 5:41 PM MOLD UNLOADER 1 hour after transfusion of red blood cells is complete Dorie Sofia PENAL OFFICER LAB BLOOD ORDERABLES Fi nal Result Performing Organization Address [facility] Co de Phone Number [facility] [place] [address] * (ABNORMAL) Vancomycin level trough (11/11/2023 2:44 PM MOLD UNLOADER) Pathologist [facility] Vancomycin trough 21.1(H) 10.0 - 20.0 mcg/mL [facility] Comment:Reviewed Blood 11/11/2023 2:44 PM MOLD UNLOADER 11/11/2023 2:50 PM MOLD UNLOADER Dorie Sofia PENAL OFFICER LAB BLOOD ORDERABLES Fi nal Result Performing Organization Address [facility] de Phone Number [facility] Department [place] [address] * POCT glucose (11/11/2023 12:11 PM MOLD UNLOADER) Pathologist [facility] Glucose, POC 155 70 - 199 mg/dL [facility] Blood 11/11/2023 12:1 1 PM MOLD UNLOADER 11/11/2023 12:11 PM MOLD UNLOADER Marcial Vu Jr., MD LAB POCT ORDERABLES - DEVICE Final Result Performing Organization Address [facility] Co de Phone Number [facility] [address] * Type and screen (11/11/2023 11:29 AM MOLD UNLOADER) Pathologist [facility] Jigna, indirect Negative ABO Rh O Positive [facility] Blood 11/11/2023 11:2 9 AM MOLD UNLOADER 11/11/2023 11:42 AM MOLD UNLOADER Narrative [facility] - 11/11/2023 12:35 PM MOLD UNLOADER Has the patient had Daratumumab or Isatuximab in the past 6 months?->Unknown Dorie Sofia NP LAB BLOOD BANK TEST ORD ERABLES Final Result Performing Organization Address [facility] Co de Phone Number [facility] Department [place] [address] * Prepare RBC: 1 Units (11/11/2023 10:08 AM MOLD UNLOADER) [facility] Product code [id number] Unit Number [id number] [facility] Product Blood Type OPOS [facility] Dispense Status PRESUMED TRANSFUSED [facility] Blood 11/11/2023 10:0 8 AM MOLD UNLOADER 11/11/2023 10:09 AM MOLD UNLOADER Narrative [facility] - 11/12/2023 12:45 AM MOLD UNLOADER Are special requirements needed? (All products are leukoreduced and CMV- safe)- >No Date required:-[id number] LRRBC # of [id number] Reasons:-Active bleeding, Hgb <8 g/dL} Dorie Sofia NP BLOOD BANK PRODUCT ORDE RABLES Final Result Performing Organization Address [facility] Co de Phone Number [facility] Department [place] [address] * POCT glucose (11/11/2023 8:33 AM MOLD UNLOADER) [facility] Glucose, POC 141 70 - 199 mg/dL [facility] Blood 11/11/2023 8:33 AM MOLD UNLOADER 11/11/2023 8:33 AM MOLD UNLOADER Marcial Vu Jr., MD LAB POCT ORDERABLES - DEVICE Final Result Performing Organization Address [facility] Co de Phone Number [facility] Department [place] [address] * eGFR (11/10/2023 11:13 PM MOLD UNLOADER) eGFR >90 >=60 mL/min/1. 73 m2 [facility] Comment: Interpretive Data Reference Interval [...] reviewed 2021. Blood 11/10/2023 11:1 3 PM MOLD UNLOADER 11/10/2023 11:58 PM MOLD UNLOADER us Vicki Rehman NP LAB BLOOD ORDERABLES F inal Result Performing Organization Address [facility]/ZIP Co de Phone Number [facility] Department [place] [address] * Lidocaine level (11/10/2023 11:13 PM MOLD UNLOADER) Pathologist [facility] Lidocaine (Xylocaine) 1.9 1.5 - 5.0 mcg/mL [facility] Blood 11/10/2023 11:1 3 PM MOLD UNLOADER 11/10/2023 11:55 PM MOLD UNLOADER Marcial Vu Jr., MD LAB BLOOD ORDERABLE S Final Result [facility] [place] [address] * Phosphorus (11/10/2023 11:13 PM MOLD UNLOADER) Pathologist [facility] Phosphorus, pl 2.4 2.3 - 4.5 mg/dL [facility] Blood 11/10/2023 11:1 3 PM MOLD UNLOADER 11/10/2023 11:55 PM MOLD UNLOADER Vicki Rehman NP LAB BLOOD ORDERABLES F inal Result Performing Organization Address [facility] de Phone Number [facility] [place] [employer] [place] [address] * Magnesium (11/10/2023 11:13 PM MOLD UNLOADER) [facility] Magnesium 2.3 1.4 - 2.5 mg/dL [facility] Blood 11/10/2023 11:1 3 PM MOLD UNLOADER 11/10/2023 11:55 PM MOLD UNLOADER Vicki Rehman NP LAB BLOOD ORDERABLES F inal Result Performing Organization Address City/[facility] Co de Phone Number [facility] [employer] [place] [address] * (ABNORMAL) CBC without differential (11/10/2023 11:13 PM MOLD UNLOADER) [facility] WBC 9.2 3.8 - 9.9 K/cumm [facility] Hgb 7.5(L) 13.0 - 17.5 g/dL [facility] Hct 22.6(L) 38.9 - 50.3 % [facility] Plt 211 150 - 400 K/cumm [facility] MPV 11.1 9.1 - 12.3 fL [facility] RBC 2.47(L) 4.30 - 5.80 M/cumm [facility] MCV 91.5 81.3 - 96.4 fL [facility] MCH 30.4 27.1 - 33.3 pg [facility] MCHC 33.2 32.3 - 35.7 g/dL [facility] RDW CV 14.0 11.1 - 14.9 % [facility] RDW SD 46.8 35.7 - 48.1 fL [facility] NRBC abs 0.00 0.00 - 0.01 K/cumm [facility] Blood 11/10/2023 11:1 3 PM MOLD UNLOADER 11/10/2023 11:41 PM MOLD UNLOADER Vicki Rehman NP LAB BLOOD ORDERABLES F inal Result [facility] [place] [address] * (ABNORMAL) Basic metabolic panel (11/10/2023 11:13 PM MOLD UNLOADER) Sodium 135 135 - 145 mmol/L [facility] Potassium, pl 4.3 3.3 - 4.9 mmol/L [facility] Chloride 104 97 - 110 mmol/L [facility] CO2 24 22 - 32 mmol/L [facility] Anion gap 7 2 - 15 mmol/L [facility] BUN 22 6 - 25 mg/dL [facility] Creatinine 0.82 0.80 - 1.30 mg/dL [facility] Glucose 118 70 - 199 mg/dL [facility] Comment: Interpretive Data Fasting glucose [...] 2022. Calcium 7.9(L) 8.5 - 10.3 mg/dL [facility] Blood 11/10/2023 11:1 3 PM MOLD UNLOADER 11/10/2023 11:55 PM MOLD UNLOADER Vicki Rehman NP LAB BLOOD ORDERABLES F inal Result Performing Organization Address [facility] Co de Phone Number [facility] Department [place] [employer] [place] [address] * POCT glucose (11/10/2023 8:50 PM MOLD UNLOADER) Glucose, POC 170 70 - 199 mg/dL [facility] Blood 11/10/2023 8:50 PM MOLD UNLOADER 11/10/2023 8:50 PM MOLD UNLOADER Marcial Vu Jr., MD LAB POCT ORDERABLES - DEVICE Final Result Performing Organization Address [facility] Co de Phone Number [facility] Department [place] [employer] [place] [address] * (ABNORMAL) POCT glucose (11/10/2023 5:31 PM MOLD UNLOADER) Glucose, POC 207(H) 70 - 199 mg/dL [facility] Blood 11/10/2023 5:31 PM MOLD UNLOADER 11/10/2023 5:31 PM MOLD UNLOADER Marcial Vu Jr., MD LAB POCT ORDERABLES - DEVICE Final Result Performing Organization Address [facility] Co de Phone Number [facility] Department [place] [address] * (ABNORMAL) POCT glucose (11/10/2023 11:47 AM MOLD UNLOADER) Glucose, POC 200(H) 70 - 199 mg/dL [facility] Blood 11/10/2023 11:4 7 AM MOLD UNLOADER 11/10/2023 11:47 AM MOLD UNLOADER Marcial Vu Jr., MD LAB POCT ORDERABLES - DEVICE Final Result Performing Organization Address City/[facility]/[place] [address] * POCT glucose (11/10/2023 8:00 AM MOLD UNLOADER) Glucose, POC 149 70 - 199 mg/dL [facility] Blood 11/10/2023 8:00 AM MOLD UNLOADER 11/10/2023 8:00 AM MOLD UNLOADER Marcial Vu Jr., MD LAB POCT ORDERABLES - DEVICE Final Result Performing Organization Address [facility] [place] [address] * Vancomycin level trough Draw trough 30 minutes prior to 4th dose. (11/10/2023 2:59 AM MOLD UNLOADER) Vancomycin trough 19.0 10.0 - 20.0 mcg/mL [facility] Blood 11/10/2023 2:59 AM MOLD UNLOADER 11/10/2023 3:15 AM MOLD UNLOADER Narrative [facility] - 11/10/2023 3:47 AM MOLD UNLOADER Draw trough 30 minutes prior to 4th dose. Vicki Rehman NP LAB BLOOD ORDERABLES F inal Result Performing Organization Address City/[facility]/ZIP Co de Phone Number [facility] [place] [address] * (ABNORMAL) Basic metabolic panel (11/09/2023 11:30 PM MOLD UNLOADER) Pathologist [facility] Sodium 135 135 - 145 mmol/L [facility] Potassium, pl 4.7 3.3 - 4.9 mmol/L [facility] Chloride 104 97 - 110 mmol/L [facility] CO2 23 22 - 32 mmol/L [facility] Anion gap 8 2 - 15 mmol/L [facility] BUN 20 6 - 25 mg/dL [facility] Creatinine 0.99 0.80 - 1.30 mg/dL [facility] Glucose 138 70 - 199 mg/dL [facility] Comment: Interpretive Data Fasting glucose [...] 2022. Calcium 8.3(L) 8.5 - 10.3 mg/dL [facility] Blood 11/09/2023 11:3 0 PM MOLD UNLOADER 11/09/2023 11:47 PM MOLD UNLOADER Marcial Vu Jr., MD LAB BLOOD ORDERABLE S Final Result [facility] Department [place] [address] * eGFR (11/09/2023 11:30 PM MOLD UNLOADER) Pathologist [facility] eGFR 81 >=60 mL/min/1. 73 m2 [facility] Comment: Interpretive Data Reference Interval [...] reviewed 2021. Blood 11/09/2023 11:3 0 PM MOLD UNLOADER 11/09/2023 11:57 PM MOLD UNLOADER Marcial Vu Jr., MD LAB BLOOD ORDERABLE S Final Result Performing Organization Address City/State/[facility] Co de Phone Number [facility] Department [place] [address] * (ABNORMAL) CBC without differential (11/09/2023 11:30 PM MOLD UNLOADER) WBC 10.9(H) 3.8 - 9.9 K/cumm [facility] Hgb 8.6(L) 13.0 - 17.5 g/dL [facility] Hct 25.3(L) 38.9 - 50.3 % [facility] Plt 225 150 - 400 K/cumm [facility] MPV 11.1 9.1 - 12.3 fL [facility] RBC 2.78(L) 4.30 - 5.80 M/cumm [facility] MCV 91.0 81.3 - 96.4 fL [facility] MCH 30.9 27.1 - 33.3 pg [facility] MCHC 34.0 32.3 - 35.7 g/dL [facility] RDW CV 14.2 11.1 - 14.9 % [facility] RDW SD 48.0 35.7 - 48.1 fL [facility] NRBC abs 0.00 0.00 - 0.01 K/cumm [facility] Blood 11/09/2023 11:3 0 PM MOLD UNLOADER 11/09/2023 11:56 PM MOLD UNLOADER Amanda Copeland MD LAB BLOOD ORDERABLES F inal Result Performing Organization Address City/[facility] Co de Phone Number [facility] Department [place] [employer] [place] [address] * Lidocaine level (11/09/2023 11:30 PM MOLD UNLOADER) Pathologist [facility] Lidocaine (Xylocaine) 2.7 1.5 - 5.0 mcg/mL [facility] Blood 11/09/2023 11:3 0 PM MOLD UNLOADER 11/09/2023 11:47 PM MOLD UNLOADER Narrative [facility] - 11/10/2023 12:30 AM MOLD UNLOADER Draw 24 hours after infusion started. Vicki Rehman NP LAB BLOOD ORDERABLES F inal Result Performing Organization Address [facility] Co de Phone Number [facility] Department [place] [employer] [place] [address] * eGFR (11/09/2023 8:41 PM MOLD UNLOADER) Pathologist [facility] eGFR 81 >=60 mL/min/1. 73 m2 [facility] Comment: Interpretive Data Reference Interval [...] last reviewed 2021. Blood 11/09/2023 8:41 PM MOLD UNLOADER 11/09/2023 9:08 PM MOLD UNLOADER Vicki Rehman NP LAB BLOOD ORDERABLES F inal Result Performing Organization Address City/[facility] Co de Phone Number [facility] Department [place] [employer] [place] [address] * Phosphorus (11/09/2023 8:41 PM MOLD UNLOADER) Phosphorus, pl 3.4 2.3 - 4.5 mg/dL [facility] Blood 11/09/2023 8:41 PM MOLD UNLOADER 11/09/2023 9:08 PM MOLD UNLOADER Vicki Rehman NP LAB BLOOD ORDERABLES F inal Result Performing Organization Address City/[facility] Co de Phone Number [facility] [place] [address] * Magnesium (11/09/2023 8:41 PM MOLD UNLOADER) Magnesium 2.3 1.4 - 2.5 mg/dL [facility] Blood 11/09/2023 8:41 PM MOLD UNLOADER 11/09/2023 9:08 PM MOLD UNLOADER Vicki Rehman NP LAB BLOOD ORDERABLES F inal Result Performing Organization Address [facility] Co de Phone Number [facility] Department [place] [address] * (ABNORMAL) CBC without differential (11/09/2023 8:41 PM MOLD UNLOADER) [facility] WBC 11.9(H) 3.8 - 9.9 K/cumm [facility] Hgb 8.5(L) 13.0 - 17.5 g/dL [facility] Hct 25.7(L) 38.9 - 50.3 % [facility] Plt 219 150 - 400 K/cumm [facility] MPV 11.1 9.1 - 12.3 fL [facility] RBC 2.82(L) 4.30 - 5.80 M/cumm [facility] MCV 91.1 81.3 - 96.4 fL [facility] MCH 30.1 27.1 - 33.3 pg [facility] MCHC 33.1 32.3 - 35.7 g/dL [facility] RDW CV 14.4 11.1 - 14.9 % [facility] RDW SD 47.6 35.7 - 48.1 fL [facility] NRBC abs 0.00 0.00 - 0.01 K/cumm [facility] Blood 11/09/2023 8:41 PM MOLD UNLOADER 11/09/2023 9:08 PM MOLD UNLOADER Vicki Rehman NP LAB BLOOD ORDERABLES F inal Result Performing Organization Address City/[facility]/ZIP Co de Phone Number [facility] Department [place] [address] * (ABNORMAL) Basic metabolic panel (11/09/2023 8:41 PM MOLD UNLOADER) Sodium 133(L) 135 - 145 mmol/L [facility] Potassium, pl 5.0(H) 3.3 - 4.9 mmol/L [facility] Comment:Hemolyzed; Potassium value may be falsely elevated by as much as 0.3-0.5 mmol/L. Suggest redraw and reanalysis. Chloride 102 97 - 110 mmol/L [facility] CO2 22 22 - 32 mmol/L [facility] Anion gap 9 2 - 15 mmol/L [facility] BUN 20 6 - 25 mg/dL [facility] Creatinine 0.99 0.80 - 1.30 mg/dL [facility] Glucose 189 70 - 199 mg/dL [facility] Comment: Interpretive Data Fasting glucose [...] 2022. Calcium 8.2(L) 8.5 - 10.3 mg/dL [facility] Blood 11/09/2023 8:41 PM MOLD UNLOADER 11/09/2023 9:08 PM MOLD UNLOADER Vicki Rehman NP LAB BLOOD ORDERABLES F inal Result [facility] [place] [address] * POCT glucose (11/09/2023 8:38 PM MOLD UNLOADER) Pathologist [facility] Glucose, POC 196 70 - 199 mg/dL [facility] Blood 11/09/2023 8:38 PM MOLD UNLOADER 11/09/2023 8:38 PM MOLD UNLOADER Marcial Vu Jr., MD LAB POCT ORDERABLES - DEVICE Final Result Performing Organization Address [facility] de Phone Number [facility] [address] * POCT glucose (11/09/2023 4:47 PM MOLD UNLOADER) Glucose, POC 145 70 - 199 mg/dL [facility] Blood 11/09/2023 4:47 PM MOLD UNLOADER 11/09/2023 4:47 PM MOLD UNLOADER Marcial Vu Jr., MD LAB POCT ORDERABLES - DEVICE Final Result Performing Organization Address [facility] de Phone Number [facility] [place] [address] * POCT glucose (11/09/2023 3:18 PM MOLD UNLOADER) Glucose, POC 161 70 - 199 mg/dL [facility] Blood 11/09/2023 3:18 PM MOLD UNLOADER 11/09/2023 3:18 PM MOLD UNLOADER Marcial Vu Jr., MD LAB POCT ORDERABLES - DEVICE Final Result Performing Organization Address [facility] de Phone Number [facility] [employer] [place] [address] * CT Chest PE (CTA) W Contrast (11/09/2023 12:22 PM MOLD UNLOADER) Anatomical Region Laterality Modality Body N/A Computed Tomogra phy 11/09/2023 12:4 9 PM MOLD UNLOADER Impressions 11/09/2023 12:49 PM MOLD UNLOADER 1. ??Interval decrease in burden of bilateral [...] Micha Barajas M.D. Narrative 11/09/2023 12:49 PM MOLD UNLOADER EXAMINATION: CT CHEST PE (CTA) W CONTRAST [...] Result * Lidocaine level (11/09/2023 11:43 AM MOLD UNLOADER) Lidocaine (Xylocaine) 3.4 1.5 - 5.0 mcg/mL [facility] Blood 11/09/2023 11:4 3 AM MOLD UNLOADER 11/09/2023 12:04 PM MOLD UNLOADER us Vicki Rehman NP LAB BLOOD ORDERABLES F inal Result Performing Organization Address City/[facility]/ZIP Co de Phone Number [facility] Department [place] [address] * POCT glucose (11/09/2023 11:04 AM MOLD UNLOADER) [facility] Signature Glucose, POC 147 70 - 199 mg/dL [facility] Blood 11/09/2023 11:0 4 AM MOLD UNLOADER 11/09/2023 11:04 AM MOLD UNLOADER us Marcial Vu Jr., MD LAB POCT ORDERABLES - DEVICE Final Result Performing Organization Address [facility] Co de Phone Number [facility] [place] [address] * Critical Care (11/09/2023 9:22 AM MOLD UNLOADER) Narrative Silver Brown MD - 11/09/2023 9:22 AM MOLD UNLOADER Vicki Rehman NP ? 11/09/2023 ??3:00 PM [...] plan with the patient's team and other medical/operations consultant staff. This time was in addition [...] Insert Vena Cava Filter (11/09/2023 8:47 AM MOLD UNLOADER) Anatomical Region Laterality Modality Body N/A X-Ray Angiograph y 11/09/2023 10:4 9 AM MOLD UNLOADER Impressions 11/09/2023 11:50 AM MOLD UNLOADER Successful placement of an IVC ??filter PLAN: A retrievable filter has been placed. ??If clinically indicated, the filter may be retrieved when the patient is appropriately anticoagulated. ??In order to schedule filter removal please call [phone]. ??This filter can also be left in place as a permanent IVC filter if appropriate. Dictated by: Honorio Hannon M.D. The radiology attending physician has personally reviewed this study, and had reviewed and/or edited this written report and agrees with it. Electronically signed by: Nahun Albarado M.D. Narrative 11/09/2023 11:50 AM MOLD UNLOADER EXAMINATION: ??INFERIOR VENA CAVAGRAM AND INFERIOR VENA [...] was obtained. Prior to beginning the procedure, [place] Protocol was performed to confirm the patient's [...] was obtained. Prior to beginning the procedure, [place] Protocol was performed to confirm the patient's [...] order to schedule filter removal please call [phone]. This filter can also be left in place as a permanent IVC filter if appropriate. Dictated by: Honorio Hannon M.D. The radiology attending physician has personally reviewed this study, and had reviewed and/or edited this written report and agrees with it. Electronically signed by: Nahun Albarado M.D. Vicki Rehman PENAL OFFICER IMG IR PROCEDURES Fide l Result * POCT glucose (11/09/2023 7:07 AM MOLD UNLOADER) Glucose, POC 137 70 - 199 mg/dL [facility] Blood 11/09/2023 7:07 AM MOLD UNLOADER 11/09/2023 7:07 AM MOLD UNLOADER Marcial Vu Jr., MD LAB POCT ORDERABLES - DEVICE Final Result Performing Organization Address [facility] Co de Phone Number [facility] Department [place] [address] * POCT glucose (11/09/2023 3:24 AM MOLD UNLOADER) Glucose, POC 160 70 - 199 mg/dL [facility] Blood 11/09/2023 3:24 AM MOLD UNLOADER 11/09/2023 3:24 AM MOLD UNLOADER Marcial Vu Jr., MD LAB POCT ORDERABLES - DEVICE Final Result Performing Organization Address [facility] Co de Phone Number [facility] Department [place] [address] * POCT glucose (11/08/2023 11:49 PM MOLD UNLOADER) Pathologist [facility] Glucose, POC 150 70 - 199 mg/dL [facility] Blood 11/08/2023 11:4 9 PM MOLD UNLOADER 11/08/2023 11:49 PM MOLD UNLOADER Marcial Vu Jr., MD LAB POCT ORDERABLES - DEVICE Final Result [facility] [place] [address] * eGFR (11/08/2023 9:01 PM MOLD UNLOADER) [facility] eGFR >90 >=60 mL/min/1. 73 m2 [facility] Comment: Interpretive Data Reference Interval [...] last reviewed 2021. Blood 11/08/2023 9:01 PM MOLD UNLOADER 11/08/2023 9:18 PM MOLD UNLOADER Vicki Rehman NP LAB BLOOD ORDERABLES F inal Result Performing Organization Address [facility] Co de Phone Number [facility] [place] [address] * Phosphorus (11/08/2023 9:01 PM MOLD UNLOADER) Pathologist [facility] Phosphorus, pl 3.4 2.3 - 4.5 mg/dL [facility] Blood 11/08/2023 9:01 PM MOLD UNLOADER 11/08/2023 9:18 PM MOLD UNLOADER Vicki Rehman NP LAB BLOOD ORDERABLES F inal Result Performing Organization Address [facility] de Phone Number [facility] Department [place] [address] * Magnesium (11/08/2023 9:01 PM MOLD UNLOADER) [facility] Magnesium 2.3 1.4 - 2.5 mg/dL [facility] Blood 11/08/2023 9:01 PM MOLD UNLOADER 11/08/2023 9:18 PM MOLD UNLOADER Result [facility] Vicki Rehman NP LAB BLOOD ORDERABLES F inal Result Performing Organization Address [facility] de Phone Number [facility] [place] [address] * (ABNORMAL) CBC without differential (11/08/2023 9:01 PM MOLD UNLOADER) [facility] WBC 14.0(H) 3.8 - 9.9 K/cumm [facility] Hgb 11.0(L) 13.0 - 17.5 g/dL [facility] Hct 33.3(L) 38.9 - 50.3 % [facility] Plt 292 150 - 400 K/cumm [facility] MPV 11.1 9.1 - 12.3 fL [facility] RBC 3.62(L) 4.30 - 5.80 M/cumm [facility] MCV 92.0 81.3 - 96.4 fL [facility] MCH 30.4 27.1 - 33.3 pg [facility] MCHC 33.0 32.3 - 35.7 g/dL [facility] RDW CV 14.4 11.1 - 14.9 % [facility] RDW SD 49.0(H) 35.7 - 48.1 fL [facility] NRBC abs 0.00 0.00 - 0.01 K/cumm [facility] Blood 11/08/2023 9:01 PM MOLD UNLOADER 11/08/2023 9:17 PM MOLD UNLOADER Vicki Rehman NP LAB BLOOD ORDERABLES F inal Result [facility] [place] [address] * Basic metabolic panel (11/08/2023 9:01 PM MOLD UNLOADER) Sodium 136 135 - 145 mmol/L [facility] Potassium, pl 4.4 3.3 - 4.9 mmol/L [facility] Chloride 102 97 - 110 mmol/L [facility] CO2 22 22 - 32 mmol/L [facility] Anion gap 12 2 - 15 mmol/L [facility] BUN 18 6 - 25 mg/dL [facility] Creatinine 0.83 0.80 - 1.30 mg/dL [facility] Glucose 192 70 - 199 mg/dL [facility] Comment: Interpretive Data Fasting glucose [...] 2022. Calcium 8.5 8.5 - 10.3 mg/dL [facility] Blood 11/08/2023 9:01 PM MOLD UNLOADER 11/08/2023 9:18 PM MOLD UNLOADER us Vicki Rehman NP LAB BLOOD ORDERABLES F inal Result Performing Organization Address City/[facility]/ZIP Co de Phone Number [facility] Department [place] [address] * POCT glucose (11/08/2023 7:10 PM MOLD UNLOADER) [facility] Signature Glucose, POC 169 70 - 199 mg/dL [facility] Blood 11/08/2023 7:10 PM MOLD UNLOADER 11/08/2023 7:10 PM MOLD UNLOADER us Marcial Vu Jr., MD LAB POCT ORDERABLES - DEVICE Final Result Performing Organization Address [facility] Co de Phone Number [facility] Department [place] [address] * Critical Care (11/08/2023 6:15 PM MOLD UNLOADER) Narrative Dmitry Neal MD - 11/08/2023 6:15 PM MOLD UNLOADER Nuvia Cantu NP ? 11/09/2023 ??5:16 AM [...] plan with the ICU team and other medical/operations consultant staff, making frequent assessments and decisions [...] Lower Extremity Bilateral Complete (11/08/2023 3:07 PM MOLD UNLOADER) Anatomical Region Laterality Modality Vascular Bilateral Ultrasound 11/08/2023 2:22 PM MOLD UNLOADER Narrative 11/09/2023 1:26 AM MOLD UNLOADER [facility] - Department of Vascular Surgery, Vascular Laboratory [address] [place] [address] Lower Extremity Venous Ultrasound Report Patient Name: HIRA EVANS WILLIAM : 1950 (73y 4m) Study Date: 11/08/2023 2:22:46 PM Gender: M Tech: MD Location: [id number] Ref Provider: VICKI REHMAN ?Quality: Adequate Order [...] INDICATIONS: recent bilateral PE - FINDINGS: Performing Director Retail Brand Development: Nola Walker RVT, [place]. Bilateral: Venous Doppler [...] By: Shayan Jameson MD FACS 2023-11-09 01:25:55 MOLD UNLOADER Procedure Note Shayan Jameson MD - 11/09/2023 [facility] - Department of Vascular Surgery,Vascular Laboratory [address] [place] [address] Lower Extremity Venous Ultrasound Report Patient Name: HIRA EVANS WILLIAM : 1950 (73y 4m) Study Date: 11/08/2023 2:22:46 PM Gender: M Tech: MD Location: [id number] Ref Provider: VICKI REHMAN Quality: Adequate Order Provider: VICKI REHMAN PROCEDURES: Vascular Report: Venous Duplex imaging was performed bilaterally in the lower extremities.The common femoral, femoral, popliteal, posterior tibial, peroneal veins wereevaluated for patency, spontaneity and phasicity with Doppler, compression and augmentationmaneuvers. Great saphenous vein proximal at the junction was evaluated with compressionmaneuvers. INDICATIONS: recent bilateral PE - FINDINGS: Performing Director Retail Brand Development: Nola Walker RVT, [place]. Bilateral: Venous Doppler [...] above. Electronically Signed By: Shayan Jameson MD [facility] 2023-11-09 01:25:55 MOLD UNLOADER us Vicki Rehman PENAL OFFICER IMG US PROCEDURES Fide l Result * POCT glucose (11/08/2023 3:05 PM MOLD UNLOADER) Glucose, POC 171 70 - 199 mg/dL [facility] Blood 11/08/2023 3:05 PM MOLD UNLOADER 11/08/2023 3:05 PM MOLD UNLOADER Marcial Vu Jr., MD LAB POCT ORDERABLES - DEVICE Final Result [facility] Department [place] [address] * Critical Care (11/08/2023 12:12 PM MOLD UNLOADER) Narrative Silver Brown MD - 11/08/2023 12:12 PM MOLD UNLOADER Vicki Rehman NP ? 11/08/2023 ??5:33 PM [...] plan with the ICU team and other medical/operations consultant staff, making frequent assessments and decisions [...] Final Result * eGFR (11/08/2023 11:51 AM MOLD UNLOADER) [facility] eGFR >90 >=60 mL/min/1. 73 m2 [facility] Comment: Interpretive Data Reference Interval Normal [...] reviewed 2021. Blood 11/08/2023 11:5 1 AM MOLD UNLOADER 11/08/2023 12:03 PM MOLD UNLOADER Vicki Rehman NP LAB BLOOD ORDERABLES F inal Result Performing Organization Address City/[facility]/ZIP Co de Phone Number [facility] Department [place] [address] * (ABNORMAL) CBC without differential (11/08/2023 11:51 AM MOLD UNLOADER) WBC 10.4(H) 3.8 - 9.9 K/cumm [facility] Hgb 9.2(L) 13.0 - 17.5 g/dL [facility] Hct 27.4(L) 38.9 - 50.3 % [facility] Plt 255 150 - 400 K/cumm [facility] MPV 11.0 9.1 - 12.3 fL [facility] RBC 3.03(L) 4.30 - 5.80 M/cumm [facility] MCV 90.4 81.3 - 96.4 fL [facility] MCH 30.4 27.1 - 33.3 pg [facility] MCHC 33.6 32.3 - 35.7 g/dL [facility] RDW CV 14.4 11.1 - 14.9 % [facility] RDW SD 47.6 35.7 - 48.1 fL [facility] NRBC abs 0.00 0.00 - 0.01 K/cumm [facility] Blood 11/08/2023 11:5 1 AM MOLD UNLOADER 11/08/2023 12:18 PM MOLD UNLOADER Vicki Rehman NP LAB BLOOD ORDERABLES F inal Result [facility] [place] [address] * Protime-INR (11/08/2023 11:51 AM MOLD UNLOADER) PT 12.8 10.3 - 13.7 sec [facility] INR 1.12 0.90 - 1.20 [facility] Comment: Interpretive data Oral anticoagulant therapeutic ranges: Venous thromboembolism prophylaxis or treatment: 2.0-3.0 CARDIOLOGY Standard range: 2.0-3.0 High-intensity range: 2.5-3.5 Refer to indication-specific guidelines for appropriate target ranges for prosthetic heart valve replacement. Current interpretive data was last revised on 2019. Blood 11/08/2023 11:5 1 AM MOLD UNLOADER 11/08/2023 12:08 PM MOLD UNLOADER Vicki Rehman NP LAB BLOOD ORDERABLES F inal Result Performing Organization Address [facility] Co de Phone Number [facility] [place] [address] * Phosphorus (11/08/2023 11:51 AM MOLD UNLOADER) Pathologist [facility] Phosphorus, pl 4.1 2.3 - 4.5 mg/dL [facility] Blood 11/08/2023 11:5 1 AM MOLD UNLOADER 11/08/2023 12:03 PM MOLD UNLOADER Vicki Rehman NP LAB BLOOD ORDERABLES F inal Result Performing Organization Address City/[facility] Co de Phone Number [facility] Department [place] [address] * Magnesium (11/08/2023 11:51 AM MOLD UNLOADER) Pathologist [facility] Magnesium 1.8 1.4 - 2.5 mg/dL [facility] Blood 11/08/2023 11:5 1 AM MOLD UNLOADER 11/08/2023 12:03 PM MOLD UNLOADER Vicki Rehman NP LAB BLOOD ORDERABLES F inal Result Performing Organization Address City/[facility]/ZIP Co de Phone Number [facility] Department [place] [address] * Calcium, ionized (11/08/2023 11:51 AM MOLD UNLOADER) Pathologist [facility] Calcium, Ionized 4.58 4.50 - 5.10 mg/dL [facility] Blood 11/08/2023 11:5 1 AM MOLD UNLOADER 11/08/2023 12:03 PM MOLD UNLOADER Vicki Rehman NP LAB BLOOD ORDERABLES F inal Result [facility] [place] [address] * (ABNORMAL) Basic metabolic panel (11/08/2023 11:51 AM MOLD UNLOADER) Pathologist [facility] Sodium 138 135 - 145 mmol/L [facility] Potassium, pl 4.4 3.3 - 4.9 mmol/L [facility] Chloride 108 97 - 110 mmol/L [facility] CO2 22 22 - 32 mmol/L [facility] Anion gap 8 2 - 15 mmol/L [facility] BUN 15 6 - 25 mg/dL [facility] Creatinine 0.82 0.80 - 1.30 mg/dL [facility] Glucose 181 70 - 199 mg/dL [facility] Comment: Interpretive Data Fasting glucose [...] 2022. Calcium 8.0(L) 8.5 - 10.3 mg/dL [facility] Blood 11/08/2023 11:5 1 AM MOLD UNLOADER 11/08/2023 12:03 PM MOLD UNLOADER us Vicki Rehman NP LAB BLOOD ORDERABLES F inal Result Performing Organization Address [facility] Co de Phone Number [facility] [place] [address] * POCT glucose (11/08/2023 11:41 AM MOLD UNLOADER) Glucose, POC 173 70 - 199 mg/dL [facility] Blood 11/08/2023 11:4 1 AM MOLD UNLOADER 11/08/2023 11:41 AM MOLD UNLOADER us Marcial Vu MD LAB POCT ORDERABLES - DEVICE Final Result Performing Organization Address [facility] Co de Phone Number [facility] [place] [address] * Transfuse plasma (11/08/2023 9:32 AM MOLD UNLOADER) Blood Hood Kim MD BLOOD TRANSFUSION [facility] Final Result Performing Organization Address [facility] Co de Phone Number [facility] [place] [address] * (ABNORMAL) POC Blood Gas and Chemistries, Arterial - (11/08/2023 8:22 AM MOLD UNLOADER) pH, Art POC 7.38 7.35 - 7.45 [facility] pCO2, Art POC 38 35 - 45 mmHg [facility] pO2, Art POC 153(H) 83 - 108 mmHg [facility] Na, POC 135 135 - 145 mmol/L [facility] K POC 4.5 3.3 - 4.9 mmol/L [facility] Comment: Interpretive Data This method is not able to assess for hemolysis, which may falsely increase potassium concentrations. If further testing is needed to evaluate this result, consider in-laboratory plasma potassium. Current Interpretive Data was last revised on 2022. Cl, POC 109 97 - 110 mmol/L [facility] Ionized Ca, POC 5.14(H) 4.50 - 5.10 mg/dL [facility] Glucose, POC 187 70 - 199 mg/dL [facility] Lactate, POC 0.8 0.7 - 2.2 mmol/L [facility] SO2 (mindy) arterial 99(H) 90 - 95 % [facility] Base excess, POC -2.3 mmol/L [facility] HCO3, Art POC 22 20 - 30 mmol/L [facility] Hct, POC 32.0(L) 41.4 - 51.6 % [facility] O2 Sat, Art POC (Calc) 99 % [facility] Total Hb, POC 10.6(L) 13.8 - 17.2 g/dL [facility] Blood 11/08/2023 8:22 AM MOLD UNLOADER 11/08/2023 8:22 AM MOLD UNLOADER us Julia Ramos MD LAB POCT ORDERABLES - DE VICE Final Result [facility] [place] [address] * Transfuse RBC (11/08/2023 7:37 AM MOLD UNLOADER) Blood us Edmond Barker MD BLOOD TRANSFUSION ORD ERABLES Final Result [facility] Department [place] [employer] [place] [address] * (ABNORMAL) POC Blood Gas and Chemistries, Arterial - (11/08/2023 7:05 AM MOLD UNLOADER) [facility] pH, Art POC 7.42 7.35 - 7.45 [facility] p[facility], [facility] POC 33(L) 35 - 45 mmHg [facility] pO2, Art POC 156(H) 83 - 108 mmHg [facility] Na, POC 135 135 - 145 mmol/L [facility] K POC 3.8 3.3 - 4.9 mmol/L [facility] Comment: Interpretive Data This method is not able to assess for hemolysis, which may falsely increase potassium concentrations. If further testing is needed to evaluate this result, consider in-laboratory plasma potassium. Current Interpretive Data was last revised on 2022. Cl, POC 109 97 - 110 mmol/L [facility] Ionized Ca, POC 4.66 4.50 - 5.10 mg/dL [facility] Glucose, POC 146 70 - 199 mg/dL [facility] Lactate, POC 0.6(L) 0.7 - 2.2 mmol/L [facility] SO2 (mindy) arterial 99(H) 90 - 95 % [facility] Base excess, POC -2.6 mmol/L [facility] HCO3, Art POC 21 20 - 30 mmol/L [facility] Hct, POC 29.0(L) 41.4 - 51.6 % [facility] O2 Sat, Art POC (Calc) 99 % [facility] Total Hb, POC 9.8(L) 13.8 - 17.2 g/dL [facility] Blood 11/08/2023 7:05 AM MOLD UNLOADER 11/08/2023 7:05 AM MOLD UNLOADER Julia Ramos MD LAB POCT ORDERABLES - DE VICE Final Result [facility] [place] [address] * (ABNORMAL) POC Blood Gas and Chemistries, Arterial - (11/08/2023 6:00 AM MOLD UNLOADER) pH, Art POC 7.39 7.35 - 7.45 [facility] pCO2, Art POC 40 35 - 45 mmHg [facility] pO2, Art POC 158(H) 83 - 108 mmHg [facility] Na, POC 136 135 - 145 mmol/L [facility] K POC 3.7 3.3 - 4.9 mmol/L [facility] Comment: Interpretive Data This method is not able to assess for hemolysis, which may falsely increase potassium concentrations. If further testing is needed to evaluate this result, consider in-laboratory plasma potassium. Current Interpretive Data was last revised on 2022. Cl, POC 109 97 - 110 mmol/L [facility] Ionized Ca, POC 4.53 4.50 - 5.10 mg/dL [facility] Glucose, POC 131 70 - 199 mg/dL [facility] Lactate, POC 0.7 0.7 - 2.2 mmol/L [facility] SO2 (mindy) arterial 100(H) 90 - 95 % [facility] Base excess, POC -0.7 mmol/L [facility] HCO3, Art POC 24 20 - 30 mmol/L [facility] Hct, POC 29.0(L) 41.4 - 51.6 % [facility] O2 Sat, Art POC (Calc) 99 % [facility] Total Hb, POC 9.6(L) 13.8 - 17.2 g/dL [facility] Blood 11/08/2023 6:00 AM MOLD UNLOADER 11/08/2023 6:00 AM MOLD UNLOADER us Julia Ramos MD LAB POCT ORDERABLES - DE VICE Final Result [facility] [place] [employer] [place] [address] * Transfuse RBC (11/08/2023 5:59 AM MOLD UNLOADER) Blood us Edmond Barker MD BLOOD TRANSFUSION ORD ERABLES Final Result [facility] [place] [employer] [place] [address] * Transfuse RBC (11/08/2023 4:53 AM MOLD UNLOADER) Blood us Edmond Barker MD BLOOD TRANSFUSION ORD ERABLES Final Result [facility] [place] [employer] [place] [address] * (ABNORMAL) POC Blood Gas and Chemistries, Arterial - (11/08/2023 4:18 AM MOLD UNLOADER) pH, Art POC 7.45 7.35 - 7.45 [facility] pCO2, Art POC 35 35 - 45 mmHg [facility] pO2, Art POC 322(H) 83 - 108 mmHg [facility] Na, POC 136 135 - 145 mmol/L [facility] K POC 3.5 3.3 - 4.9 mmol/L [facility] Comment: Interpretive Data This method is not able to assess for hemolysis, which may falsely increase potassium concentrations. If further testing is needed to evaluate this result, consider in-laboratory plasma potassium. Current Interpretive Data was last revised on 2022. Cl, POC 108 97 - 110 mmol/L [facility] Ionized Ca, POC 4.62 4.50 - 5.10 mg/dL [facility] Glucose, POC 123 70 - 199 mg/dL [facility] Lactate, POC 0.7 0.7 - 2.2 mmol/L [facility] SO2 (mindy) arterial 99(H) 90 - 95 % [facility] Base excess, POC 0.4 mmol/L [facility] HCO3, Art POC 24 20 - 30 mmol/L [facility] Hct, POC 26.0(L) 41.4 - 51.6 % [facility] O2 Sat, Art POC (Calc) 100 % [facility] Total Hb, POC 8.6(L) 13.8 - 17.2 g/dL [facility] Blood 11/08/2023 4:18 AM MOLD UNLOADER 11/08/2023 4:18 AM MOLD UNLOADER us Julia Ramos MD LAB POCT ORDERABLES - DE VICE Final Result [facility] [place] [address] * Prepare plasma: 4 Units (11/08/2023 2:28 AM MOLD UNLOADER) [facility] Product code [id number] Unit Number [id number] [facility] Product Blood Type OPOS [facility] Dispense Status RETURNED [facility] Product code [id number] [facility] Unit Number [id number] [facility] Product Blood Type OPOS [facility] Dispense Status RETURNED [facility] Product code [id number] [facility] Unit Number [id number] [facility] Product Blood Type OPOS [facility] Dispense Status RETURNED [facility] Product code [id number] [facility] Unit Number [id number] [facility] Product Blood Type OPOS [facility] Dispense Status PRESUMED TRANSFUSED [facility] Blood (Blood, Venous) 11/08/2023 2:28 AM MOLD UNLOADER 11/08/2023 2:29 AM MOLD UNLOADER Narrative CERNER BJ - 11/09/2023 12:41 PM MOLD UNLOADER Date required: FFP # of Units:-4-Units Reasons:-Immediate need for surgical intervention us Tobias Rivas MD BLOOD BANK PRODUCT ORDERA BLES Final Result [facility] Department [place] [address] * Prepare RBC: 4 Units (11/08/2023 2:28 AM MOLD UNLOADER) Product code [id number] Unit Number [id number] [facility] Product Blood Type OPOS CERNER BJ Dispense Status PRESUMED TRANSFUSED CERNER BJ Product code [id number] CERNER BJ Unit Number [id number] CERNER BJ Product Blood Type OPOS CERNER BJ Dispense Status RETURNED CERNER BJ Product code [id number] CERNER BJ Unit Number [id number] CERNER BJ Product Blood Type OPOS CERNER BJ Dispense Status PRESUMED TRANSFUSED CERNER BJ Product code [id number] CERNER BJ Unit Number [id number] CERNER BJ Product Blood Type OPOS CERNER BJ Dispense Status PRESUMED TRANSFUSED CERNER [facility] Blood 11/08/2023 2:28 AM MOLD UNLOADER 11/08/2023 2:29 AM MOLD UNLOADER Narrative [facility] - 11/09/2023 12:43 PM MOLD UNLOADER Are special requirements needed? (All products are leukoreduced and CMV- safe)- >No Date required:-[id number] LRRBC # of [id number] Reasons:-Intra-op transfusion} us Tobias Rivas MD BLOOD BANK PRODUCT ORDERA BLES Final Result [facility] Department [place] [address] * Critical Care (11/08/2023 2:18 AM MOLD UNLOADER) Narrative Eula Wagoner MD - 11/08/2023 2:18 AM MOLD UNLOADER Eula Wagoner MD ? 11/08/2023 ??2:19 AM [...] Lumbar Spine WO Contrast (11/08/2023 2:09 AM MOLD UNLOADER) Anatomical Region Laterality Modality Spine N/A Computed Tomogra phy 11/08/2023 2:35 AM MOLD UNLOADER Impressions 11/08/2023 1:21 PM MOLD UNLOADER 1. ??Degenerative changes of the cervical and [...] Zac Mcgarry M.D. Narrative 11/08/2023 1:21 PM MOLD UNLOADER EXAMINATION: 1. CT of the cervical spine [...] 2 or 3 Views (11/08/2023 1:14 AM MOLD UNLOADER) Anatomical Region Laterality Modality Spine N/A Computed Radiogr aphy 11/08/2023 1:56 AM MOLD UNLOADER Impressions 11/08/2023 10:20 AM MOLD UNLOADER FINDINGS/IMPRESSION: Thoracic spine: 3 views of the [...] Kendrick House M.D. Narrative 11/08/2023 10:20 AM MOLD UNLOADER EXAMINATION: ??XR SPINE THORACIC 3 VIEWS, XR [...] Spine Thoracic 3 Vw (11/08/2023 1:13 AM MOLD UNLOADER) Anatomical Region Laterality Modality Spine N/A Computed Radiogr aphy 11/08/2023 1:56 AM MOLD UNLOADER Impressions 11/08/2023 10:20 AM MOLD UNLOADER FINDINGS/IMPRESSION: Thoracic spine: 3 views of the [...] Kendrick House M.D. Narrative 11/08/2023 10:20 AM MOLD UNLOADER EXAMINATION: ??XR SPINE THORACIC 3 VIEWS, XR [...] Total Complete WO Contrast (11/08/2023 12:44 AM MOLD UNLOADER) Anatomical Region Laterality Modality Spine N/A Magnetic Resonan ce 11/08/2023 11:5 3 AM MOLD UNLOADER Impressions 11/08/2023 4:26 PM MOLD UNLOADER 1. ??Postsurgical changes of L4-L5 discectomy, interbody [...] Zac Mcgarry M.D. Narrative 11/08/2023 4:26 PM MOLD UNLOADER EXAMINATION: 1. Magnetic resonance imaging (MRI) of [...] by: Zac Mcgarry M.D. Deisy Ayala MD [facility] MRI PROCEDURES Final Result * eGFR (11/07/2023 11:01 PM MOLD UNLOADER) [facility] eGFR 82 >=60 mL/min/1. 73 m2 [facility] Comment: Interpretive Data Reference Interval Normal [...] reviewed 2021. Blood 11/07/2023 11:0 1 PM MOLD UNLOADER 11/07/2023 11:12 PM MOLD UNLOADER us Deisy Ayala MD LAB BLOOD ORDERABLES Fide prabhjot Result [facility] Department [place] [address] * Type and screen (11/07/2023 11:01 PM MOLD UNLOADER) Jigna, indirect Negative ABO Rh O Positive [facility] Blood 11/07/2023 11:0 1 PM MOLD UNLOADER 11/07/2023 11:46 PM MOLD UNLOADER Narrative [facility]AGO[facility] - 11/08/2023 12:42 AM MOLD UNLOADER Has the patient had Daratumumab or Isatuximab in the past 6 months?->Unknown us Deisy Ayala MD LAB BLOOD BANK TEST ORDER CLEMENTINE Final Result Performing Organization Address [facility] Co de Phone Number [facility] [employer] [place] [address] * aPTT (11/07/2023 11:01 PM MOLD UNLOADER) aPTT 32 28 - 38 sec [facility] Comment: Interpretive Data Heparin therapeutic range: 66.0 - 100.0 seconds. Range based on correlation with therapeutic heparin activity range of 0.3 - 0.7 Units/mL. Current interpretive data was last revised on 2023. Blood 11/07/2023 11:0 1 PM MOLD UNLOADER 11/08/2023 12:07 AM MOLD UNLOADER us Deisy Ayala MD LAB BLOOD ORDERABLES Fide l Result Performing Organization Address [facility] [place] [address] * Protime-INR (11/07/2023 11:01 PM MOLD UNLOADER) PT 12.6 10.3 - 13.7 sec [facility] INR 1.11 0.90 - 1.20 [facility] Comment: Interpretive data Oral anticoagulant therapeutic ranges: Venous thromboembolism prophylaxis or treatment: 2.0-3.0 CARDIOLOGY Standard range: 2.0-3.0 High-intensity range: 2.5-3.5 Refer to indication-specific guidelines for appropriate target ranges for prosthetic heart valve replacement. Current interpretive data was last revised on 2019. Blood 11/07/2023 11:0 1 PM MOLD UNLOADER 11/08/2023 12:07 AM MOLD UNLOADER Deisy Ayala MD LAB BLOOD ORDERABLES Fide l Result Performing Organization Address [facility] Co de Phone Number [facility] [employer] [place] [address] * Basic metabolic panel (11/07/2023 11:01 PM MOLD UNLOADER) Pathologist [facility] Sodium 141 135 - 145 mmol/L [facility] Potassium, pl 4.2 3.3 - 4.9 mmol/L [facility] Chloride 104 97 - 110 mmol/L [facility] CO2 28 22 - 32 mmol/L [facility] Anion gap 9 2 - 15 mmol/L [facility] BUN 14 6 - 25 mg/dL [facility] Creatinine 0.98 0.80 - 1.30 mg/dL [facility] Glucose 142 70 - 199 mg/dL [facility] Comment: Interpretive Data Fasting glucose [...] 2022. Calcium 8.6 8.5 - 10.3 mg/dL [facility] Blood 11/07/2023 11:0 1 PM MOLD UNLOADER 11/07/2023 11:12 PM MOLD UNLOADER Deisy Ayala MD LAB BLOOD ORDERABLES Fide l Result [facility] Department [place] [address] * (ABNORMAL) CBC without differential (11/07/2023 11:01 PM MOLD UNLOADER) [facility] WBC 12.0(H) 3.8 - 9.9 K/cumm [facility] Hgb 9.5(L) 13.0 - 17.5 g/dL [facility] Hct 29.0(L) 38.9 - 50.3 % [facility] Plt 343 150 - 400 K/cumm [facility] MPV 10.9 9.1 - 12.3 fL [facility] RBC 3.08(L) 4.30 - 5.80 M/cumm [facility] MCV 94.2 81.3 - 96.4 fL [facility] MCH 30.8 27.1 - 33.3 pg [facility] MCHC 32.8 32.3 - 35.7 g/dL [facility] RDW CV 13.7 11.1 - 14.9 % [facility] RDW SD 46.8 35.7 - 48.1 fL [facility] NRBC abs 0.00 0.00 - 0.01 K/cumm [facility] Blood 11/07/2023 11:0 1 PM MOLD UNLOADER 11/07/2023 11:12 PM MOLD UNLOADER Deisy Ayala MD LAB BLOOD ORDERABLES Fide l Result Performing Organization Address City/State/[facility] Co de Phone Number [facility] Department [place] [address] * ID CRITICAL CARE ILL/INJURED PATIENT INIT 30-74 MIN (11/07/2023 10:43 PM MOLD UNLOADER) Narrative Temo Hampton MD - 11/07/2023 10:43 PM MOLD UNLOADER Temo Hampton MD ? 11/07/2023 10:44 PM [...] 11/08/23 at 1215 Given 11/16/2023 11:40 AM MOLD UNLOADER 1,000 mg Given 11/16/2023 5:14 AM MOLD UNLOADER 1,000 mg Given 11/15/2023 11:11 PM MOLD UNLOADER 1,000 mg acyclovir (ZOVIRAX) tablet 400 mg 400 mg, oral, 2 times daily, First dose on Sun11/09/23 at 1030, Indications: Prophylaxis, MedicalIndications:Prophylaxis, Medical Given 11/16/2023 8:30 AM MOLD UNLOADER 400 mg Given 11/15/2023 9:11 PM MOLD UNLOADER 400 mg Given 11/15/2023 8:36 AM MOLD UNLOADER 400 mg bisacodyL (DULCOLAX) suppository 10 mg 10 mg, rectal, Daily, First dose on 11/10/23 at 1115, Indications: constipationIndications:constipation Given 11/14/2023 8:17 AM MOLD UNLOADER 10 mg Given 11/10/2023 4:36 PM MOLD UNLOADER 10 mg ceFAZolin (ANCEF) 2,000 mg/20 mL in sterile water (premix) 2,000 mg 2,000 mg, intravenous, at 400 mL/hr, Administer over 3 Minutes, Every 8 hours scheduled, First dose (after last modification) on Helene 11/08/23 at 1630, Indications: Prophylaxis, SurgicalIndications:Prophylaxis, Surgical Given 11/12/2023 8:56 AM MOLD UNLOADER 2,000 mg 400 mL/hr Given 11/12/2023 12:07 AM MOLD UNLOADER 2,000 mg 400 mL/hr Given 11/11/2023 5:03 PM MOLD UNLOADER 2,000 mg 400 mL/hr cetirizine (ZyrTEC) tablet 10 mg 10 mg, oral, Daily, First dose on Sun11/08/23 at 1500 Given 11/16/2023 8:29 AM MOLD UNLOADER 10 mg Given 11/15/2023 8:36 AM MOLD UNLOADER 10 mg Given 11/14/2023 8:18 AM MOLD UNLOADER 10 mg cholecalciferol (VITAMIN D-3) capsule 5,000 Units 5,000 Units, oral, Daily, First dose on Sun11/08/23 at 1500, Each capsule contains 5,000 units (125 mcg) of cholecalciferol, Given 11/16/2023 11:40 AM MOLD UNLOADER 5,000 Units Given 11/15/2023 8:36 AM MOLD UNLOADER 5,000 Units Given 11/14/2023 8:18 AM MOLD UNLOADER 5,000 Units cyclobenzaprine (FLEXERIL) tablet 5 mg 5 mg, oral, 3 times daily PRN, muscle spasms, Starting on Sun11/08/23 at 1709 Given 11/08/2023 6:05 PM MOLD UNLOADER 5 mg cyclobenzaprine (FLEXERIL) tablet 5 mg 5 mg, oral, 3 times daily, First dose (after last modification) on Sun11/12/23 at 1600 Given 11/16/2023 8:30 AM MOLD UNLOADER 5 m g Given 11/15/2023 9:11 PM MOLD UNLOADER 5 mg Given 11/15/2023 3:04 PM MOLD UNLOADER 5 mg dexAMETHasone (DECADRON) 4 mg/mL injection 4 mg 4 mg, intravenous, Administer over 2 Minutes, Every 6 hours scheduled, First dose on Sun11/08/23 at 1230, For 7 days Given 11/14/2023 5:17 AM MOLD UNLOADER 4 mg Given 11/13/2023 11:40 PM MOLD UNLOADER 4 mg Given 11/13/2023 5:00 PM MOLD UNLOADER 4 mg dexAMETHasone (DECADRON) tablet 2 mg 2 mg, oral, Every 6 hours scheduled, First dose on Sun11/14/23 at 1200, For 1 day Given 11/15/2023 6:09 AM MOLD UNLOADER 2 mg Given 11/14/2023 11:54 PM MOLD UNLOADER 2 mg Given 11/14/2023 5:53 PM MOLD UNLOADER 2 mg dexAMETHasone (DECADRON) tablet 2 mg 2 mg, oral, Every 12 hours scheduled, First dose on Sun11/15/23 at 1200, For 1 day Given 11/15/2023 9:11 PM MOLD UNLOADER 2 mg Given 11/15/2023 12:34 PM MOLD UNLOADER 2 mg dexAMETHasone (DECADRON) tablet 2 mg 2 mg, oral, Once, On Sun11/16/23 at 0900, For 1 dose Given 11/16/2023 8:30 AM MOLD UNLOADER 2 mg dextrose (D10W) 10% bolus 250 [...] at 0000 Rate/Dose Verify 11/09/2023 11:00 AM MOLD UNLOADER 10 mL/hr 10 mL/hr Rate/Dose Verify 11/09/2023 10:00 AM MOLD UNLOADER 10 mL/hr 10 mL/ hr Rate/Dose Verify 11/09/2023 9:00 AM MOLD UNLOADER 10 mL/hr 10 mL/h r dextrose gel [...] tablet/capsule., Indications: hypertensionIndications:hypertension Given 11/16/2023 8:29 AM MOLD UNLOADER 240 mg Given 11/15/2023 9:11 PM MOLD UNLOADER 240 mg Given 11/15/2023 8:36 AM MOLD UNLOADER 240 mg docusate sodium (COLACE) capsule 100 mg 100 mg, oral, 2 times daily, First dose on Sun11/08/23 at 1230, If able to swallow capsules. Hold for diarrhea., Indications: constipation, Stool SoftenerIndications:constipation,Stool Softener Given 11/10/2023 8:01 AM MOLD UNLOADER 100 mg Given 11/09/2023 8:33 PM MOLD UNLOADER 100 mg Given 11/09/2023 9:16 AM MOLD UNLOADER 100 mg fentaNYL (SUBLIMAZE) preservative free injection intravenous, As needed, Starting on Sun11/09/23 at 0808, Intra-Op Given 11/09/2023 8:08 AM MOLD UNLOADER 50 mcg gabapentin (NEURONTIN) capsule 300 mg 300 mg, oral, 3 times daily, First dose on Sun11/08/23 at 1600 Given 11/12/2023 8:57 AM MOLD UNLOADER 300 mg Given 11/11/2023 9:39 PM MOLD UNLOADER 300 mg Given 11/11/2023 5:29 PM MOLD UNLOADER 300 mg gabapentin (NEURONTIN) tablet 600 mg 600 mg, oral, 3 times daily, First dose (after last modification) on Sun11/12/23 at 1600 Given 11/16/2023 8:30 AM MOLD UNLOADER 600 mg Given 11/15/2023 9:11 PM MOLD UNLOADER 600 mg Given 11/15/2023 3:04 PM MOLD UNLOADER 600 mg glucagon injection 1 mg 1 [...] 11/08/23 at 1248 Given 11/08/2023 12:54 PM MOLD UNLOADER 10 mg HYDROmorphone (DILAUDID) injection 0.25 mg 0.25 mg, intravenous, Administer over 2 Minutes, Every 1 hour PRN, breakthrough pain, Starting on Sun11/08/23 at 1155 Given 11/08/2023 7:17 PM MOLD UNLOADER 0.25 mg Given 11/08/2023 5:30 PM MOLD UNLOADER 0.25 mg Given 11/08/2023 2:03 PM MOLD UNLOADER 0.25 mg HYDROmorphone (DILAUDID) injection 0.5 mg 0.5 mg, intravenous, Administer over 2 Minutes, Every 1 hour PRN, breakthrough pain, Starting on Sun11/08/23 at 2229 Given 11/08/2023 10:31 PM MOLD UNLOADER 0.5 mg insulin lispro (HumaLOG, ADMELOG) 100 [...] Diabetes MellitusIndications:Diabetes Mellitus Given 11/16/2023 11:40 AM MOLD UNLOADER 2 Units Left Lower Abdomen Given 11/15/2023 5:22 PM MOLD UNLOADER 2 Units Le ft Lower Abdomen Given 11/15/2023 12:35 PM MOLD UNLOADER 2 Units L eft Lower Abdomen insulin [...] Diabetes MellitusIndications:Diabetes Mellitus Given 11/15/2023 9:25 PM MOLD UNLOADER 1 Units Right Lower Abdomen Given 11/14/2023 8:46 PM MOLD UNLOADER 1 Units Ri ght Lower Abdomen Given 11/13/2023 10:00 PM MOLD UNLOADER 1 Units L eft Lower Abdomen insulin [...] Diabetes MellitusIndications:Diabetes Mellitus Given 11/09/2023 12:34 PM MOLD UNLOADER 2 Units Left Upper Arm Given 11/09/2023 5:06 AM MOLD UNLOADER 2 Units Le ft Upper Arm Given 11/08/2023 11:51 PM MOLD UNLOADER 2 Units R ight Upper Arm ioversoL (OPTIRAY 350) injection As needed, Starting on Sun11/09/23 at 0837, Intra-Op Given 11/09/2023 8:37 AM MOLD UNLOADER 100 mL ioversoL (OPTIRAY 350) syringe 100 mL 100 mL, intravenous, Once in imaging, contrast, Starting on Sun11/09/23 at 1208, For 1 dose Contrast Given 11/09/2023 12:23 PM MOLD UNLOADER 63 mL irbesartan (AVAPRO) tablet 150 mg 150 mg, oral, Every morning, First dose on Sun11/12/23 at 1630, Hold for SBP < 110, Indications: hypertensionIndications:hypertensio n Given 11/16/2023 8:29 AM MOLD UNLOADER 150 mg Given 11/15/2023 8:36 AM MOLD UNLOADER 150 mg Given 11/14/2023 8:18 AM MOLD UNLOADER 150 mg ketorolac (TORADOL) 15 mg/mL injection 15 mg 15 mg, intravenous, Every 6 hours scheduled, First dose on Helene 11/08/23 at 2100, For 3 doses Given 11/09/2023 5:0 6 AM MOLD UNLOADER 15 mg Given 11/08/2023 8:44 PM MOLD UNLOADER 15 mg Lactated Ringer's (LR) bolus 500 mL 500 mL, intravenous, at 500 mL/hr, Administer over 1 Hours, Once, On Sun11/09/23 at 0000, For 1 dose New Bag 11/08/2023 11:33 PM MOLD UNLOADER 500 mL 500 mL/hr lactulose 0.67 gram/mL oral solution 20 g 20 g, oral, Once, On 11/10/23 at 1715, For 1 dose Given 11/10/2023 5:19 PM MOLD UNLOADER 20 g levETIRAcetam (KEPPRA) tablet 1,000 mg 1,000 mg, oral, 2 times daily, First dose on Helene 11/08/23 at 1245 Given 11/16/2023 8:30 AM MOLD UNLOADER 1,000 mg Given 11/15/2023 9:11 PM MOLD UNLOADER 1,000 mg Given 11/15/2023 8:36 AM MOLD UNLOADER 1,000 mg lidocaine in dextrose 5% 2 g/250 mL (8 mg/mL) infusion (premix) 1 mg/kg/hr ? 68.4 kg [place] weight (8.55 mL/hr), 8 mg/mL, intravenous, Continuous, [...] 5., RoutineIndications:Pain New Bag 11/11/2023 4:51 AM MOLD UNLOADER 1 mg/kg/hr 8.55 mL /hr New Bag 11/09/2023 11:32 PM MOLD UNLOADER 1 mg/kg/hr 8.55 mL/hr Rate/Dose Change 11/09/2023 3:11 PM MOLD UNLOADER 1 mg/kg/hr 8.55 mL /hr lidocaine PF (XYLOCAINE) 10 mg/mL (1 %) preservative free injection As needed, Starting on Sun11/09/23 at 0809, Intra-Procedure (IR), Indications: Administration of Local AnesthesiaIndications:Administration of Local Anesthesia Given 11/09/2023 8:09 AM MOLD UNLOADER 4 mL magnesium sulfate 2 g/50 mL in water (premix) 2 g 2 g, intravenous, Administer over 60 Minutes, Once, On Sun11/08/23 at 1400, For 1 dose New Bag 11/08/2023 1:54 PM MOLD UNLOADER 2 g midazolam (VERSED) 1 mg/mL injection As needed, Starting on Sun11/09/23 at 0808, Intra-Op Given 11/09/2023 8:08 AM MOLD UNLOADER 1 mg ondansetron (ZOFRAN) 4 mg/2 mL injection - ADS Override Pull Starting on Sun11/08/23 at 1352, For 1 dose, Created by cabinet override ondansetron (ZOFRAN) injection 4 mg 4 mg, intravenous, Administer over 2 Minutes, Every 6 hours PRN, nausea, Starting on Sun11/08/23 at 1352, 1st line Given 11/09/2023 1:22 PM MOLD UNLOADER 4 mg Given 11/09/2023 9:58 AM MOLD UNLOADER 4 mg Given 11/08/2023 8:51 PM MOLD UNLOADER 4 mg ondansetron (ZOFRAN) injection 4 mg 4 mg, intravenous, Administer over 2 Minutes, Once, On Sun11/08/23 at 1745, For 1 dose Given 11/08/2023 5:14 PM MOLD UNLOADER 4 mg oxyCODONE (ROXICODONE) tablet 10 mg 10 mg, oral, Every 4 hours PRN, 1st line for pain, Starting on Sun11/08/23 at 2257, Indications: PainIndications:Pain Given 11/11/2023 12:54 PM MOLD UNLOADER 10 mg Given 11/09/2023 2:58 AM MOLD UNLOADER 10 mg oxyCODONE (ROXICODONE) tablet 5 mg 5 mg, oral, Every 4 hours PRN, 1st line for pain, Starting on Helene 11/08/23 at 1204, Indications: PainIndications:Pain Given 11/08/2023 8:44 PM MOLD UNLOADER 5 mg Given 11/08/2023 4:38 PM MOLD UNLOADER 5 mg Given 11/08/2023 12:23 PM MOLD UNLOADER 5 mg oxyCODONE (ROXICODONE) tablet 5 mg 5 mg, oral, Once, On Helene 11/08/23 at 2330, For 1 dose, Indications: PainIndications:Pain Given 11/08/2023 11:04 PM MOLD UNLOADER [address] (PROTONIX) extended release tablet 40 mg 40 mg, oral, Daily, First dose on Helene 11/08/23 at 1245, Do not crush, chew, cut, dissolve, open or otherwise manipulate tablet/capsule., Indications: Treatment of Non-Bleeding Gastric DisorderIndications:Treatment of Non-Bleeding Gastric Disorder Given 11/16/2023 8:30 AM MOLD UNLOADER 40 mg Given 11/15/2023 8:36 AM MOLD UNLOADER 40 mg Given 11/14/2023 8:17 AM MOLD UNLOADER 40 mg prochlorperazine (COMPAZINE) injection 5 mg 5 mg, intravenous, Administer over 2 Minutes, Every 6 hours PRN, nausea, vomiting, 2nd line, Starting on Helene 11/08/23 at 1709 Given 11/09/2023 10:02 AM MOLD UNLOADER 5 mg Given 11/08/2023 5:15 PM MOLD UNLOADER 5 mg protamine injection 40 mg 40 mg, intravenous, Once, On Helene 11/08/23 at 0101, For 1 dose, Rate not to exceed 50 mg over 10 minutes, Indications: Heparin Toxicity, Low Molecular Weight Heparin ReversalIndications:Heparin Toxicity,Low Molecular Weight Heparin Reversal Given 11/08/2023 1:35 AM MOLD UNLOADER 40 mg ramelteon (ROZEREM) tablet 8 mg 8 mg, oral, Nightly, First dose on Helene 11/08/23 at 2115, Indications: Sleep-Onset InsomniaIndications:Sleep-Onset Insomnia Given 11/15/2023 11:11 PM MOLD UNLOADER 8 mg Given 11/14/2023 11:53 PM MOLD UNLOADER 8 mg Given 11/13/2023 10:00 PM MOLD UNLOADER 8 mg senna (SENOKOT) tablet 1 tablet 1 tablet, oral, 2 times daily, First dose on Helene 11/08/23 at 1230, If able to swallow tablets. Hold for diarrhea., Indications: constipationIndications:constipation Given 11/10/2023 8:01 AM MOLD UNLOADER 1 table t Given 11/09/2023 8:33 PM MOLD UNLOADER 1 tablet Given 11/09/2023 9:16 AM MOLD UNLOADER 1 tablet senna-docusate (PERICOLACE) 8.6-50 mg per tablet 2 tablet 2 tablet, oral, 2 times daily, First dose on 11/10/23 at 1115 Given 11/16/2023 8:29 AM MOLD UNLOADER 2 tablets Given 11/15/2023 9:10 PM MOLD UNLOADER 2 tablets Given 11/15/2023 8:36 AM MOLD UNLOADER 2 tablets sodium chloride 0.9% flush 0.5-20 mL 0.5-20 mL, intra-catheter, Every 8 hours scheduled, First dose on Sun11/09/23 at 1700, Pre-Procedure (IR), Flush volume based on line type and size. Given 11/16/2023 5:14 AM MOLD UNLOADER 10 mL Given 11/15/2023 9:11 PM MOLD UNLOADER 10 mL Given 11/15/2023 6:09 AM MOLD UNLOADER 10 mL sodium chloride 0.9% flush 0.5-20 [...] transfusion complete. New Bag 11/11/2023 12:55 PM MOLD UNLOADER 250 mL tamsulosin (FLOMAX) extended release capsule 0.8 mg 0.8 mg, oral, Daily with dinner, First dose (after last modification) on Helene 11/08/23 at 1800, Do not crush, chew, cut, dissolve, open or otherwise manipulate tablet/capsule. Given 11/15/2023 5:23 PM MOLD UNLOADER 0.8 mg Given 11/14/2023 5:53 PM MOLD UNLOADER 0.8 mg Given 11/13/2023 5:00 PM MOLD UNLOADER 0.8 mg traMADoL (ULTRAM) tablet 50 mg 50 mg, oral, Once, On Sun11/12/23 at 0945, For 1 dose Given 11/12/2023 9:15 AM MOLD UNLOADER 50 mg traMADoL (ULTRAM) tablet 50 mg 50 mg, oral, Every 4 hours PRN, 1st line for pain, Starting on Sun11/12/23 at 1545 Given 11/14/2023 1:00 PM MOLD UNLOADER 50 mg traZODone (DESYREL) tablet 50 mg 50 mg, oral, Once, On Helene 11/08/23 at 2145, For 1 dose Given 11/08/2023 9:15 PM MOLD UNLOADER 50 mg vancomycin 1,250 mg/262.5 mL in sodium chloride 0.9% (premix) 1,250 mg 1,250 mg (rounded from 1,329 mg = 15 mg/kg ? 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
--- OUTSIDE RECORDS SUMMARY | 2024-11-05 23:00 | XMS_ITS | Encounter Summary ---
Author Organization [facility] Healthcare Address [address] [place] [address] Care Team Providers Care Hybrid Technologist Name Role Phone Rl Medina DO [...] Expiration Date Visits Re quested Visits Authorized [id number] 1 1 Encounter Details Date Type Department Care Team (Late st Contact Info) Description 11/08/2023 3:05 AM FEED MANAGER - 11/08/2023 10:35 AM FEED MANAGER Surgery [facility] Operating Room [address] [place] [address] Marcial Vu Jr., MD [address] [facility] [id number] [place] [address] LAMINECTOMY THORACIC DECOMPRESSION Surgery Details Date/Time Status [...] dics 1 Case Notes Called RUSS Gene [phone] @ 0203 notified him we need him for emergent [...] = 0.6 oz pu re alcohol) social [employer] Utilities Answer Date Recorded In the past 12 months has [employer] electric, gas, oil, or water company threatened [...] attend chur ch or faith services? 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 Not on file Not on file Not on file documented as of this encounter Last Filed Vital Signs Vital Sign Reading Time Taken Comments Blood Pressure 137/81 11/07/2023 10:15 PM FEED MANAGER Pulse 82 11/07/2023 10:15 PM FEED MANAGER Temperature 36.4 ??C (97.6 ??F) 11/07/2023 9:21 PM CS T Respiratory Rate 16 11/07/2023 10:15 PM FEED MANAGER Oxygen Saturation 98% 11/07/2023 10:15 PM FEED MANAGER Inhaled Oxygen Concentration - - Weight 88.6 kg (195 lb 5.2 oz) 11/07/2023 9:21 P M FEED MANAGER Height 172.7 cm (5' 7.99 ) 11/07/2023 9:21 PM CS T Body Mass Index 29.71 11/07/2023 9:21 PM FEED MANAGER documented in this encounter Discharge Summaries * Francisco Javier Aleman, CARLA - 11/16/2023 12:18 PM CST Images from the original note were not included. Spine Inpatient Discharge Summary Admitting Provider: Marcial Vu MD Discharge Provider: Marcial Vu Fo* Primary Care Physician at Discharge: Rl Medina DO [phone] Admission Date: 11/07/2023 Discharge Date: 11/16/2023 Primary [...] he was directed to go to the [facility] ED, from which he was life flighted to [facility]. He endorsed rapid onset abdominalpain and altered [...] Incision: Absorbable sutures Brace: TLSO Surgical drains: [place] x2 removed on 11/12 Central Line Removed: [...] 5/5 5/5 Wrist flexion (C7) 5/5 5/5 Theology Professor (C8) 5/5 5/5 Interosseous of hand (T1) [...] URO BW MOB4 SCOTT 12/24/2023 2:20 PM [facility] BCT3 BJ N CT [facility] Main IMG 12/24/2023 3:30 PM Carrie Jerez [...] 1 tablet (10 mg total) by mouth advanced practice nurse psychotherapist before breakfast For: inflammation of the nose due to an allergy Commonly known as: ZyrTEC cholecalciferol 5,000 unit capsule Take 1 capsule (5,000 Units total) by mouth every morning For: low vitamin D levels Commonly known as: VITAMIN D-3 coenzyme Q10 100 mg capsule Take 1 capsule (100 mg total) by mouth advanced practice nurse psychotherapist before breakfast cyclobenzaprine 5 mg tablet Take [...] says it's OK. -Do not do any spd tech that cause you to twist, push or [...] waterproof dressing while showering. Discharge Wound Type: Stitches/[place] -Stitches/annika will be removed at your next [...] Marcial Vu MD at 11/16/2023 4:07 PM FEED MANAGER MANAGER MANAGER MANAGER documented in this encounter Discharge Instructions * Discharge Instructions* Francisco Javier Aleman NP - 11/16/2023 11:01 AM FEED MANAGER Thoracic/Lumbar Spinal Fusion Post-Operative Instructions s/p Hematoma Evacuation Questions: ?? For any post-operative questions, please contact Dr. Horace Mojica???s nurse, at [phone] via [employer]. Galina will view and respond to your Int[employer] questions sent to Dr. Vu. Wound Care: [...] pressure over the incision/ dressing. ?? Dr. uV will remove the dressing at your initial [...] you upon discharge. Please call Galina at [phone] if unable to keep appointment. A Hematology [...] it is best that you return to [facility] for your emergent care. Please call the emergency exchange at [phone] or toll free any time of the day or night on the daysthe office is closed, so that the emergent care can be initiated for you. Please follow these instructions for emergency calls: -During business hours (Sunday through Sunday 8am-4:30 PM except for holidays), call [phone]. The chief transfer and pumphouse operator will connect you with Dr. Vu???s nurse. Dr. Vu???s nurse reports all emergencies to Dr. Vu. -After business hours (after 4:30 PM and before 8:00am) you may call the Emergency Orthopaedic Exchange at [phone] or TOLL [phone]. The chief transfer and pumphouse operator licensed occupational therapist will contact Dr. Echeverria???s staff. IMPORTANT: Refills of medications need to be done during business hours-NO pain medication refills will be given over the phone after hours. Please call with any questions or concerns. We will be glad to assist you in any way during your recovery period. Dr. Vu???s Staff Galina Franco RN: [phone] MANAGER MANAGER documented in this encounter Medications at [...] 1 tablet (10 mg total) by mouth advanced practice nurse psychotherapist before breakfast 4 cholecalciferol (VITAMIN D-3) 5,000 unit capsuleIndication s:Vitamin D Deficiency Take 1 capsule (5,000 Units total) by mouth every morning 4 coenzyme Q10 100 mg capsule Take 1 capsule (100 mg total) by mouth advanced practice nurse psychotherapist before breakfast 4 cyclobenzaprine (FLEXERIL) 5 mg [...] Discharge to an IP Rehab facility [facility] documented in this encounter [...] not assigned to this patient, please call [phone]. 11/16/23 0948 General Session Type Treatment OT [...] Details: Pt will complete ADLs with spv MANAGER * Nasir Manzanares MD - 11/16/2023 4:48 [...] 5/5 5/5 Wrist flexion (C7) 5/5 5/5 Theology Professor (C8) 5/5 5/5 Interosseous of hand (T1) [...] For susceptibility results, refer to accession number [id number] on the urine culture from 10/11/23 MICROBIOLOGY [...] Manzanares MD Department of Orthopaedic Surgery, PGY-2 [facility] [place]/[facility] Please call with questions during daytime. See below for overnight issues. If you know the resident's name on the appropriate orthopaedic surgery team, please use [email or web address] to page resident directly. If questions arise and the appropriate resident can't be reached or you are calling overnight, please contact [phone] ([place]- 7:30 PM - 6:30 AM - Floor Resident) or [phone] (24 hours/day - Consult Resident) Cosigned by Marcial uV MD at 11/21/2023 5:13 PM FEED MANAGER MANAGER MANAGER * Javad Sánchez - 11/15/2023 1:32 PM [...] treatment team and contact the PT or CLAIMS AGENT RIGHT OF WAY currently assigned to this patient. If a physical therapy clinician is not assigned to this patient, please call [phone]. 11/15/23 1332 PT Last Visit Session Type [...] Radha Dunlap, PT at 11/15/2023 4:06 PM FEED MANAGER MANAGER MANAGER * Oneyda Farrell OT - 11/15/2023 8:03 [...] not assigned to this patient, please call [phone]. 11/15/23 0803 General Session Type Treatment OT [...] Details: Pt will complete ADLs with spv MANAGER * Nasir Manzanares MD - 11/15/2023 7:49 [...] 5/5 5/5 Wrist flexion (C7) 5/5 5/5 Theology Professor (C8) 5/5 5/5 Interosseous of hand (T1) [...] For susceptibility results, refer to accession number [id number] on the urine culture from 10/11/23 MICROBIOLOGY [...] Manzanares MD Department of Orthopaedic Surgery, PGY-2 [facility] [place]/[facility] Please call with questions during daytime. See below for overnight issues. If you know the resident's name on the appropriate orthopaedic surgery team, please use [email or web address] to page resident directly. If questions arise and the appropriate resident can't be reached or you are calling overnight, please contact [phone] ([place]- 7:30 PM - 6:30 AM - Floor Resident) or [phone] (24 hours/day - Consult Resident) Cosigned by Marcial Vu MD at 11/15/2023 4:18 PM FEED MANAGER MANAGER MANAGER * Jeremias Ibrahim RD - 11/14/2023 7:35 [...] 22 22 CREATININE mg/dL 0.71* 0.81 0.82 [id number] mL/min/1.73 m2 >90 >90 >90 CALCIUM mg/dL [...] Calorie Diet effective now Question Answer Comment ([facility]) Diet type Restricted Diabetic: Consistent Carbohydrate Other Restriction(s): High Protein/High Calorie 11/14/23 0939 11/09/23 2100 Bedtime snack At bedtime Comments: If bedtime BG is less than 100mg/dl, give patient a 15 gram carbohydrate snack. 11/09/23 8893 Allergies: Reviewed. IMPRESSION: [facility] when diet started. Not sure [...] Stool patterns Jeremias Ibrahim RD LD CDE [phone]. Weekends [phone] MANAGER * Javad Sánchez - 11/14/2023 2:23 PM [...] treatment team and contact the PT or CLAIMS AGENT RIGHT OF WAY currently assigned to this patient. If a physical therapy clinician is not assigned to this patient, please call [phone]. 11/14/23 1423 PT Last Visit Session Type [...] Radha Dunlap, PT at 11/14/2023 5:40 PM FEED MANAGER MANAGER MANAGER * Aileen Dunlap OT - 11/14/2023 1:30 PM CST Occupational Therapy 11/14/23 1330 General OT Missed Visit Reason Other (comment) (To xray per RN; OT to f/u as scheduling and availability permits) MANAGER * Marcial Yanez - 11/14/2023 9:34 AM CST 11/14/23 0900 Time Spent Start Time 0900 Stop Time 0920 Time Calculation (min) 20 min Patient Spiritual Assessment Spirituality Assessed Focus of Care Caodaism Affiliation Other (Comment) (no preference) Active in Gnosticist No Clinical Encounter Type Visited With Patient Response Type (consult requested) Reason for visit Anxiety;Support Referral From Patient;Other (Comment) (Staff) Outcomes and Progress Preserve dignity and respect Achieved Demonstrating care and respect Achieved Establish rapport and connectedness Achieved Interventions Interventions Active listening (Patient advises feeling great with high optimism after session with PT and does not require spiritual care at this time.) [facility] Spiritual Care Note Resident Electric [employer] Mechanicpaz Yanez Triage: [phone] MANAGER * Nasir Manzanares MD - 11/14/2023 5:08 [...] 5/5 5/5 Wrist flexion (C7) 5/5 5/5 Theology Professor (C8) 5/5 5/5 Interosseous of hand (T1) [...] For susceptibility results, refer to accession number [id number] on the urine culture from 10/11/23 MICROBIOLOGY [...] 11. Wound vac in place until 11/15 aNsir Manzanares MD Department of Orthopaedic Surgery, PGY-2 [facility] [place]/[facility] Please call with questions during daytime. See below for overnight issues. If you know the resident's name on the appropriate orthopaedic surgery team, please use [email or web address] to page resident directly. If questions arise and the appropriate resident can't be reached or you are calling overnight, please contact [phone] ([place]- 7:30 PM - 6:30 AM - Floor Resident) or [phone] (24 hours/day - Consult Resident) Cosigned by Marcial Vu MD at 11/14/2023 9:34 AM FEED MANAGER MANAGER MANAGER Associated attestation - Marcial Vu Jr., MD - 11/14/2023 9:34 AM FEED MANAGER Attending Attestation I have seen and examined [...] x-rays when able. Marcial Vu Jr., MD Day Light Relief Operator Department of Orthopaedic Surgery Division of Spine Surgery [facility] [employer] [place], [place] Science Specialist done by [employer]; therefore, variances and [...] treatment team and contact the PT or CLAIMS AGENT RIGHT OF WAY currently assigned to this patient. If a physical therapy clinician is not assigned to this patient, please call [phone]. 11/13/23 1329 PT Last Visit Session Type [...] Radha Dunlap, PT at 11/13/2023 5:19 PM FEED MANAGER MANAGER MANAGER * Veronica Vivas, OT - 11/13/2023 12:54 [...] not assigned to this patient, please call [phone]. 11/13/23 1000 General Session Type Treatment OT [...] transfer 11/10/23 11/17/23 -- Goal Details: To/from [facility] with mod A Problem: OT Misc Start Date: 11/10/23 Goal Start Date Expected End Date End Date OT LTG - Misc 1 11/10/23 12/01/23 -- Goal Details: Pt will complete ADLs with spv MANAGER * Marcial Yanez - 11/13/2023 10:06 AM CST 11/13/23 1000 Time Spent Start Time 0950 Stop Time 1000 Time Calculation (min) 10 min Patient Spiritual Assessment Spirituality Assessed Unable to assess Caodaism Affiliation Other (Comment) (no preference) Clinical Encounter Type Visited With Patient not available (with care team) Response Type (consult request) Reason for visit Support;Anxiety Referral From Patient [facility] Spiritual Care Note Resident Chaplain Marcial Yanez Triage: [phone] MANAGER Nasir Ribeiro MD - 11/13/2023 7:01 AM [...] 5/5 5/5 Wrist flexion (C7) 5/5 5/5 Theology Professor (C8) 5/5 5/5 Interosseous of hand (T1) [...] For susceptibility results, refer to accession number [id number] on the urine culture from 10/11/23 MICROBIOLOGY [...] Manzanares MD Department of Orthopaedic Surgery, PGY-2 [facility] [place]/[facility] Please call with questions during daytime. See below for overnight issues. If you know the resident's name on the appropriate orthopaedic surgery team, please use [email or web address] to page resident directly. If questions arise and the appropriate resident can't be reached or you are calling overnight, please contact [phone] ([place]- 7:30 PM - 6:30 AM - Floor Resident) or [phone] (24 hours/day - Consult Resident) Cosigned by Marcial Vu MD at 11/13/2023 8:20 PM FEED MANAGER MANAGER MANAGER Associated attestation - Marcial Vu Jr., MD - 11/13/2023 8:20 PM FEED MANAGER Attending Attestation I have seen and examined [...] Awaiting floor bed. Marcial Vu Jr., MD Day Light Relief Operator Department of Orthopaedic Surgery Division of Spine Surgery [facility] [place], [place] Science Specialist done by [employer]; therefore, variances and [...] Marcial Vu MD at 11/12/2023 8:38 PM FEED MANAGER MANAGER MANAGER * Shane Bowen OT - 11/12/2023 1:40 PM CST Occupational Therapy 11/12/23 1340 General OT Missed Visit Reason With other staff/receiving another service (Pt declined 2/2 just returning to bed from chair with nursing, PMR also in room having discussion with Pt and family members. OT will attempt at a later time/date.) MANAGER * Radha Dunlap, PT - 11/12/2023 9:48 [...] treatment team and contact the PT or CLAIMS AGENT RIGHT OF WAY currently assigned to this patient. If a physical therapy clinician is not assigned to this patient, please call [phone]. 11/12/23 0948 PT Last Visit Session Type [...] Transfer Level of Assistance 1 Maximum Assist (lead burner helper present with SBA - Min A due to risk of posterior LOB) Trials/Comments 1 Draw sheet used to for force production and to reduce shear Ambulation Ambulation No Other Comments Other PT Comments Pt tolerated greater than 45 min activity with PT and RN. Pt and with many appropriate questions and demonsntrate emerging insight into rehab course here at [facility] and at [facility]. Pt verbalized appropriate, non-suicidal, concerns regarding his current mental health, GRANITE FABRICATOR notified via secure chat Basic Mobility - [...] -- Goal Details: SBA for 5 minutes MANAGER * Nasir Manzanares MD - 11/12/2023 9:41 [...] 5/5 5/5 Wrist flexion (C7) 5/5 5/5 Theology Professor (C8) 5/5 5/5 Interosseous of hand (T1) [...] For susceptibility results, refer to accession number [id number] on the urine culture from 10/11/23 MICROBIOLOGY [...] Manzanares MD Department of Orthopaedic Surgery, PGY-2 [facility] [place]/[facility] Please call with questions during daytime. See below for overnight issues. If you know the resident's name on the appropriate orthopaedic surgery team, please use [email or web address] to page resident directly. If questions arise and the appropriate resident can't be reached or you are calling overnight, please contact [phone] ([place]- 7:30 PM - 6:30 AM - Floor Resident) or [phone] (24 hours/day - Consult Resident) Cosigned by Marcial Vu MD at 11/12/2023 8:33 PM FEED MANAGER MANAGER MANAGER Associated attestation - Marcial Vu Jr., MD - 11/12/2023 8:33 PM FEED MANAGER Attending Attestation I have seen and examined [...] evening versus tomorrow. Marcial Vu Jr., MD Day Light Relief Operator Department of Orthopaedic Surgery Division of Spine Surgery [facility], [place] Science Specialist done by [employer] Direct; therefore, variances and [...] bags Responsible Team Irene Oropeza MD (du) [phone] Alice Dodge MD (senior) Octavio Matute MD (chief) Please contact the resident in bold with any questions. If it is after 6pm or you are unable to reach the residents listed, please page the Neurosurgery Call Pager at [phone]. Note created by Irene Oropeza MD on 11/12/2023 at 7:26 AM. Cosigned by Simeon Cuevas MD at 11/12/2023 2:24 PM FEED MANAGER MANAGER MANAGER * Ata Marquez MD - 11/11/2023 11:07 [...] 5/5 5/5 Wrist flexion (C7) 5/5 5/5 Theology Professor (C8) 5/5 5/5 Interosseous of hand (T1) [...] For susceptibility results, refer to accession number [id number] on the urine culture from 10/11/23 MICROBIOLOGY [...] Marquez M.D. Department of Orthopaedic Surgery, PGY-3 [facility] [place]/[facility] Dr. Ata Marquez dictating using Fluency Direct. Dictation variances may occur. Please call with questions during daytime. See below for overnight issues. If you know the resident's name on the appropriate orthopaedic surgery team, please use [email or web address] to page resident directly. If questions arise and the appropriate resident can't be reached or you are calling overnight, please contact [phone] ([place]- 7:30 PM - 6:30 AM - Floor Resident) or [phone] (24 hours/day - Consult Resident) Cosigned by Marcial Vu MD at 11/12/2023 8:33 PM FEED MANAGER MANAGER MANAGER Associated attestation - Marcial Vu Jr., MD - 11/12/2023 8:33 PM FEED MANAGER Images from the original note were [...] Rehab PM&R consult Marcial Vu Jr., MD Day Light Relief Operator Department of Orthopaedic Surgery Division of Spine Surgery [place], [place] * Marcial Vu MD - 11/11/2023 [...] Rehab PM&R consult Marcial Vu Jr., MD Day Light Relief Operator Department of Orthopaedic Surgery Division of Spine Surgery [place], [place] MANAGER * Artie Real MD PhD - 11/11/2023 [...] Drains x2 bile bags Responsible Team Farhan ([phone]) Aum Please contact the resident in bold with any questions. If it is after 6pm or you are unable to reach the residents listed, please page the Neurosurgery Call Pager at [phone]. Note created by Artie Real MD PhD on 11/11/2023 at 9:02 AM. Cosigned by Simeon Cuevas MD at 11/11/2023 11:19 AM FEED MANAGER MANAGER MANAGER * Javad Sow, PT - 11/10/2023 2:36 [...] better Prior Function Prior Function Level of [place]: Independent functional transfers, Independent with ambulation Lives [...] -- Goal Details: SBA for 5 minutes MANAGER * Leila Vela, OT - 11/10/2023 2:12 [...] walker Prior Function Prior Function Level of [place]: Independent with ADLs, Independent functional transfers, Independent with ambulation, Needs assistance with homemaking Lives With: Spouse Receives Help From: Spouse/Significant other, Family (multimedia producer assist available) Driving: Yes (has not driven for several weeks) ADL Assistance: Independent (pts provided spv in the last few weeks) Instrumental ADL (IADL) Assistance: (completed by /family) 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 MANAGER * Ata Marquez MD - 11/10/2023 11:19 [...] 5/5 5/5 Wrist flexion (C7) 5/5 5/5 Theology Professor (C8) 5/5 5/5 Interosseous of hand (T1) [...] For susceptibility results, refer to accession number [id number] on the urine culture from 10/11/23 MICROBIOLOGY [...] Marquez M.D. Department of Orthopaedic Surgery, PGY-3 [facility] [place]/[facility] Dr. Ata Mraquez dictating using Fluency Direct. Dictation variances may occur. Please call with questions during daytime. See below for overnight issues. If you know the resident's name on the appropriate orthopaedic surgery team, please use [email or web address] to page resident directly. If questions arise and the appropriate resident can't be reached or you are calling overnight, please contact [phone] (Sun- 7:30 PM - 6:30 AM - Floor Resident) or [phone] (24 hours/day - Consult Resident) Cosigned by Marcial Vu MD at 11/12/2023 8:38 PM FEED MANAGER MANAGER MANAGER * Alice Dodge MD - 11/10/2023 7:11 [...] bags Responsible Team Irene Oropeza MD (du) [phone] Alice Dodge MD (senior) Octavio Matute MD (chief) Please contact the resident in bold with any questions. If it is after 6pm or you are unable to reach the residents listed, please page the Neurosurgery Call Pager at [phone]. Note created by Alice Dodge MD on 11/10/2023 at 7:12 AM. Cosigned by Simeon Cuevas MD at 11/10/2023 11:35 AM FEED MANAGER MANAGER MANAGER * Marcial Vu MD - 11/09/2023 12:45 [...] out of bed Marcial Vu Jr., MD Day Light Relief Operator Department of Orthopaedic Surgery Division of Spine Surgery [facility] [place], [place] MANAGER * Irene Oropeza MD - 11/09/2023 10:03 [...] spine Responsible Team Irene Oropeza MD (du) [phone] Alice Dodge MD (senior) Octavio Matute MD (chief) Please contact the resident in bold with any questions. If it is after 6pm or you are unable to reach the residents listed, please page the Neurosurgery Call Pager at [phone]. Note created by Irene Oropeza MD on 11/09/2023 at 10:03 AM. Cosigned by Simeon Cuevas MD at 11/10/2023 11:35 AM FEED MANAGER MANAGER MANAGER * Vicki Rehman NP - 11/09/2023 9:22 [...] with walker since 10/30/23 discharge. Transferred to [facility], MRI with longitudinally extending dorsal [...] AM Result Value Ref Range Product code D6584U75 Unit Number [id number] Product Blood Type OPOS Dispense Status ISSUED Product code J9370P86 Unit Number [id number] Product Blood Type OPOS Dispense Status RETURNED Product code R3766Q09 Unit Number [id number] Product Blood Type OPOS Dispense Status ISSUED Product code X2287L34 Unit Number [id number] Product Blood Type OPOS Dispense Status ISSUED Prepare plasma: 4 Units Collection Time: 11/08/23 2:28 AM Result Value Ref Range Product code K9390S45 Unit Number [id number] Product Blood Type OPOS Dispense Status RETURNED Product code Y4274J40 Unit Number [id number] Product Blood Type OPOS Dispense Status RETURNED Product code M8349X88 Unit Number [id number] Product Blood Type OPOS Dispense Status RETURNED Product code G6996S31 Unit Number [id number] Product Blood Type OPOS Dispense Status ISSUED [...] of both lower limbs (CMS/HCC) ([facility]) Plan of Care: NEURO: #Acute [...] plan with the patient's team and other medical/banking consultant staff. This time was in addition [...] Silver Brown MD at 11/09/2023 4:24 PM FEED MANAGER MANAGER MANAGER * Nasir Manzanares MD - 11/09/2023 8:15 [...] 5/5 5/5 Wrist flexion (C7) 5/5 5/5 Theology Professor (C8) 5/5 5/5 Interosseous of hand (T1) [...] For susceptibility results, refer to accession number [id number] on the urine culture from 10/11/23 MICROBIOLOGY [...] the appropriate orthopaedic surgery team, please use [email or web address] to page resident directly. If questions arise and the appropriate resident can't be reached or you are calling overnight, please contact [phone] ([place]- 7:30 PM - 6:30 AM - Floor Resident) or [phone] (24 hours/day - Consult Resident) Cosigned by Marcial Vu MD at 11/12/2023 8:37 PM FEED MANAGER MANAGER MANAGER Associated attestation - Marcial Vu Jr., MD - 11/12/2023 8:37 PM FEED MANAGER Images from the original note were [...] out of bed Marcial Vu Jr., MD Day Light Relief Operator Department of Orthopaedic Surgery Division of Spine Surgery [place], [place] * Marcial Vu MD - 11/08/2023 [...] questions or concerns. Marcial Vu Jr., MD Day Light Relief Operator Department of Orthopaedic Surgery Division of Spine Surgery [place], [place] [phone] MANAGER * Nuvia Cantu NP - 11/08/2023 6:15 [...] with walker since 10/30/23 discharge. Transferred to [facility], MRI with longitudinally extending dorsal [...] and agrees with it. Electronically signed by: aZc Mcgarry M.D. US Vein Duplex Lower Extremity Bilateral Complete [facility] - Department of Vascular Surgery, Vascular Laboratory [address] [place] [id number] Lower Extremity Venous Ultrasound Report Preliminary Patient Name: HIRA EVANS : 1950 (73y 4m) Study Date: 11/08/2023 2:22:46 PM Gender: M Tech: PA Location: [id number] Ref Provider: VICKI REHMAN Quality: Adequate Order [...] INDICATIONS: recent bilateral PE - FINDINGS: Performing Real Estate Associate Attorney: Nola Walker RVT, RDMS. Bilateral: Venous Doppler [...] performed. ATTESTATION: Electronically Signed By: 2023-11-08 15:05:[address] Cervical Thoracic Lumbar Spine WO Contrast [...] (c) Other (Comment) Size (Fr.): (c) Drain Bowleys Quarters Size (mL): 266 mL Number of Sutures Placed: 1 Number of days: 0 Closed/Suction/Open Drain 2 Right Back (Active) Placement Date/Time: 11/08/23 0940 Inserted by: Dr. Vu Tube Number: 2 Orientation: Right Location: Back Drain Tube Type: (c) Size (Fr.): (c) Drain Bowleys Quarters Size (mL): 266 mL Number of Sutures [...] of both lower limbs (CMS/HCC) ([facility]) Plan by system: Neurologic: Overall [...] plan with the ICU team and other medical/banking consultant staff, making frequent assessments and decisions [...] Dmitry Neal MD at 11/11/2023 4:21 AM FEED MANAGER MANAGER MANAGER * Nasir Manzanares MD - 11/08/2023 2:16 [...] 5/5 5/5 Wrist flexion (C7) 5/5 5/5 Theology Professor (C8) 5/5 5/5 Interosseous of hand (T1) [...] Marcial Vu MD at 11/08/2023 4:24 PM FEED MANAGER MANAGER MANAGER * Marcial Vu MD - 11/08/2023 1:38 [...] 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 Marcial Vu Jr., MD Day Light Relief Operator Department of Orthopaedic Surgery Division of Spine Surgery [facility] [employer] [place], [place] MANAGER MANAGER * Marcial Vu MD - 11/07/2023 10:52 [...] cauda equina compression. Marcial Vu Jr., MD Day Light Relief Operator Department of Orthopaedic Surgery Division of Spine Surgery [facility] [place], [place] MANAGER MANAGER documented in this encounter H&P Notes [...] with walker since 10/30/23 discharge. Transferred to [facility], MRI with longitudinally extending dorsal [...] 1 tablet (10 mg total) by mouth advanced practice nurse psychotherapist before breakfast cholecalciferol (VITAMIN D-3) 5,000 unit capsule Take 1 capsule (5,000 Units total) by mouth every morning coenzyme Q10 100 mg capsule Take 1 capsule (100 mg total) by mouth advanced practice nurse psychotherapist before breakfast cyclobenzaprine (FLEXERIL) 5 mg tablet [...] mg capsule Take 1 tablet by mouth advanced practice nurse psychotherapist before breakfast gabapentin (NEURONTIN) 300 mg capsule [...] AM Result Value Ref Range Product code N8759W44 Unit Number [id number] Product Blood Type OPOS Dispense Status ISSUED Product code C3301F51 Unit Number [id number] Product Blood Type OPOS Dispense Status RETURNED Product code Q5275I00 Unit Number [id number] Product Blood Type OPOS Dispense Status ISSUED Product code Y5958A77 Unit Number [id number] Product Blood Type OPOS Dispense Status ISSUED Prepare plasma: 4 Units Collection Time: 11/08/23 2:28 AM Result Value Ref Range Product code R2788U11 Unit Number [id number] Product Blood Type OPOS Dispense Status RETURNED Product code M2589F38 Unit Number [id number] Product Blood Type OPOS Dispense Status RETURNED Product code R6669N39 Unit Number [id number] Product Blood Type OPOS Dispense Status RETURNED Product code U6178B29 Unit Number [id number] Product Blood Type OPOS Dispense Status ISSUED [...] AM Result Value Ref Range Product code E5875R11 Unit Number [id number] Product Blood Type OPOS Dispense Status ISSUED Product code M1701D64 Unit Number [id number] Product Blood Type OPOS Dispense Status RETURNED Product code R2900S65 Unit Number [id number] Product Blood Type OPOS Dispense Status ISSUED Product code J8219T22 Unit Number [id number] Product Blood Type OPOS Dispense Status ISSUED Prepare plasma: 4 Units Collection Time: 11/08/23 2:28 AM Result Value Ref Range Product code P2867M31 Unit Number [id number] Product Blood Type OPOS Dispense Status RETURNED Product code Q5415F59 Unit Number [id number] Product Blood Type OPOS Dispense Status RETURNED Product code O0014L37 Unit Number [id number] Product Blood Type OPOS Dispense Status RETURNED Product code E8606I58 Unit Number [id number] Product Blood Type OPOS Dispense Status ISSUED [...] of both lower limbs (CMS/HCC) ([facility]) Plan of Care: NEURO: #Acute [...] plan with the ICU team and other medical/banking consultant staff, making frequent assessments and decisions [...] Silver Brown MD at 11/08/2023 5:59 PM FEED MANAGER MANAGER MANAGER documented in this encounter Procedure Notes * [...] = Cosigned By Initials Name Melissa Hutton acquisition specialist Access Documentation (last 4 hours) [facility] Additional [...] RN Plan Follow up Mckay Castellanos RN MANAGER documented in this encounter Consult Notes * Tyrone Martínez MD - 11/13/2023 12:47 AM CSTAssociated Order(s): CONSULT TO PM&R PHYSICIAN Patient Name: HIRA EVANS Medical Record Number (MRN): [id number] Date of (): 1950 Encounter Date: 11/07/2023 [...] [place] s/p prostatectomy, who was admitted to [facility] on 11/07/2023 forsudden onset BLE numbness [...] elbow flexion, elbow extension, wrist extension, and textile worker LUE: 5/5 with shoulder abduction, elbow flexion, elbow extension, wrist extension, and textile worker RLE:1/5 with hip flexion, 0/5 knee extension, [...] [place] s/p prostatectomy, who was admitted to [facility] on 11/07/2023 for sudden onset BLE [...] evaluated by and continuing to work with PT/OT/LEARNING COACH for assessment of current function and discharge [...] Yarely Ortiz MD at 11/15/2023 9:55 PM FEED MANAGER MANAGER MANAGER Associated attestation - Yarely Ortiz MD - 11/15/2023 9:55 PM FEED MANAGER ATTENDING DOCUMENTATION I have seen and examined [...] personally spent minutes on this patient's case: [id number]-[id number] time consisting of patient interview and evaluation/examination, [...] ACUTE PAIN SERVICE CONSULT NOTE Hira Evans, [id number] Reason for Consult: Intravenous Lidocaine Infusion for pain Requesting Provider: Horace Chief Complaint: Back and Chest pain Subjective Hira Evans is a 73 y.o. year old male referred by Dr. Vu for consultation regarding his back and chest pain. He has a history of HTN, lumbar radiculopathy s/p L4-5 decompression 10/23/23, prostate cancer who presented to [facility] 11/08/23 with acute cauda equina syndrome now [...] 1 tablet (10 mg total) by mouth advanced practice nurse psychotherapist before breakfast cholecalciferol (VITAMIN D-3) 5,000 unit capsule Take 1 capsule (5,000 Units total) by mouth every morning coenzyme Q10 100 mg capsule Take 1 capsule (100 mg total) by mouth advanced practice nurse psychotherapist before breakfast cyclobenzaprine (FLEXERIL) 5 mg tablet [...] mg capsule Take 1 tablet by mouth advanced practice nurse psychotherapist before breakfast gabapentin (NEURONTIN) 300 mg capsule [...] glucagon hydrALAZINE ondansetron prochlorperazine sodium chloride 0.9% [facility] OBJECTIVE Vitals: 24hr Min/Max: Temp Min: 36.4 [...] MD Acute Pain Service Department of Anesthesiology [facility], [facility] If you have questions or concerns, please contact the [facility] chief transfer and pumphouse operator to page the Pain Management service. After hours, this is not an in-house pager, please reserve non-urgent calls from [phone]. We are happy to address emergent calls 28/05. 11/12/23 10:25 AM For patients or family members viewing this note through [employer] programs: This note was written as a [...] Akbar MD PhD at 11/13/2023 10:35 AM FEED MANAGER MANAGER MANAGER Associated attestation - Salome Akbar MD PhD - 11/13/2023 10:35 AM FEED MANAGER I have seen and examined the patient on 11/12/2023. I agree with the findings and plan of care as documented in the resident's/fellow's note. Discussed appropriate oxycodone use and his low risk of addiction. He agrees to use it to facilitate therapy. * Damaris Maxwell LCSW - 11/09/2023 10:29 AM CSTAssociated Order(s): IP CONSULT TO SOCIAL WORK Social work received an order for need for complex higher level or care or terminal supervisor planning for care . Patient is [...] work needs at this time. GEN Munoz, LUGGAGE ATTENDANT MANAGER MANAGER * Annette Calero MD - 11/08/2023 12:58 [...] Annette Calero MD Hematology & Oncology Fellow [facility] For questions about this consult, please contact: Rae Weller, inpatient Hematology nurse practicioner [phone] Sunday -- Sunday, 8 AM to 5 PM (except holidays) Hematology consult pager: [phone] Reason for Consult: Recent bilateral PE c/b [...] Date Noted Paralysis of both lower limbs ([facility]) ([facility]) 11/07/2023 Pulmonary embolism (HCC) 10/26/2023 S/P spinal fusion 10/23/2023 Cardiac arrest ([facility]) 10/23/2023 Left perinephric collection, 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 10/15/2023 Ureteral colic 10/13/2023 UTI (urinary tract infection) 10/13/2023 Hydronephrosis with urinary obstruction due to renal calculus 10/12/2023 Lumbar radiculopathy 10/08/2023 Gross hematuria 10/18/2022 Bladder neck obstruction 10/17/2022 Lesion of urinary bladder 10/17/2022 Prostate cancer ([facility]) 10/17/2022 HTN (hypertension) 10/10/2021 Risk factors for obstructive sleep apnea 10/10/2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 Presence of right artificial [...] 1 tablet (10 mg total) by mouth advanced practice nurse psychotherapist before breakfast Fidelia Perdue MD cholecalciferol (VITAMIN D-3) 5,000 unit capsule Take 1 capsule (5,000 Units total) by mouth every morning Fidelia Perdue MD coenzyme Q10 100 mg capsule Take 1 capsule (100 mg total) by mouth advanced practice nurse psychotherapist before breakfast Fidelia Perdue MD cyclobenzaprine (FLEXERIL) [...] mg capsule Take 1 tablet by mouth advanced practice nurse psychotherapist before breakfast Fidelia Perdue MD gabapentin (NEURONTIN) [...] under the skin once a week Sunday04/05/23 ProviderFidleia MD omeprazole (PriLOSEC) 20 mg capsule Take [...] AM Result Value Ref Range Product code V7694M79 Unit Number [id number] Product Blood Type OPOS Dispense Status ISSUED Product code P8198I35 Unit Number [id number] Product Blood Type OPOS Dispense Status RETURNED Product code G7796S38 Unit Number [id number] Product Blood Type OPOS Dispense Status ISSUED Product code W7112I69 Unit Number [id number] Product Blood Type OPOS Dispense Status ISSUED Prepare plasma: 4 Units Collection Time: 11/08/23 2:28 AM Result Value Ref Range Product code X6234G15 Unit Number [id number] Product Blood Type OPOS Dispense Status RETURNED Product code Y3982O34 Unit Number [id number] Product Blood Type OPOS Dispense Status RETURNED Product code Y4808O48 Unit Number [id number] Product Blood Type OPOS Dispense Status RETURNED Product code I4027L44 Unit Number [id number] Product Blood Type OPOS Dispense Status ISSUED [...] Josiane Mcgrath MD at 11/09/2023 9:45 AM FEED MANAGER MANAGER MANAGER MANAGER Associated attestation - Josiane Mcgrath MD - 11/09/2023 9:45 AM FEED MANAGER I have seen and examined the [...] he was directed to go to the [facility] ED, from which he was life flighted to [facility]. 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 Hand dominance: right [...] 1 tablet (10 mg total) by mouth advanced practice nurse psychotherapist before breakfast Fidelia Perdue MD cholecalciferol (VITAMIN D-3) 5,000 unit capsule Take 1 capsule (5,000 Units total) by mouth every morning Fidelia Perdue MD coenzyme Q10 100 mg capsule Take 1 capsule (100 mg total) by mouth advanced practice nurse psychotherapist before breakfast Fidelia Perdue MD cyclobenzaprine (FLEXERIL) [...] mg capsule Take 1 tablet by mouth advanced practice nurse psychotherapist before breakfast Fidelia Perdue MD gabapentin (NEURONTIN) [...] extension 5/5 5/5 Wrist flexion 5/5 5/5 Theology Professor 5/5 5/5 Interosseous of hand 5/5 5/5 [...] imaging. MRI contacted regarding criticalnature of imaging, model technician conferred that per [facility] protocol there is no spine emergency and that only acute stroke qualifies for MRI. model technician additionally stated if a patient is stable enough to undergo a scan as long as an MRI, they don't need emergent surgery. Again emphasized the urgent nature of scan and described sudden onset paralysis. model technician stated patient would be next on [...] surgery team,please use the Directory Search at [email or web address] to page resident directly. If questions arise and the appropriate resident can't be reached or you are calling overnight, please contact [phone] (Sun- 7:30 PM - 6:30 AM - Floor Resident) or [phone] (24 hours/day - Consult Resident) Cosigned by Marcial Vu MD at 11/08/2023 3:32 AM FEED MANAGER MANAGER MANAGER Associated attestation - Marcial Vu Jr., MD - 11/08/2023 3:32 AM FEED MANAGER I personally examined Mr. Evans at the [...] RN and agree with the documented assessment. MANAGER * Kasey Emmanuel RN - 11/09/2023 4:03 PM [place] [address] [place] 4413 at 1545. Two nurses teamed up to successfully complete a head to toeskin assessment. The findings of this resulted in the following: Blanchable redness on bottom. See full assessment for skin details. The appropriate goals and interventions have been implemented and documented. Will continue to monitor closely. MANAGER * Niyah Anderson RN - 11/07/2023 8:15 PM CST Verbal order from Dr. Vu- Dr. Vu would like to be notify on patients arrival- [phone] MRI total spine without contrast Bilateral lower extremity venous doppler Consult to ortho-spine MANAGER documented in this encounter ED Notes * [...] Date Noted ??? Pulmonary embolism ([facility]) 10/26/2023 ??? S/P spinal fusion 10/23/2023 ??? Cardiac arrest ([facility]) 10/23/2023 ??? Left perinephric collection, 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 10/15/2023 ??? Ureteral colic 10/13/2023 ??? UTI (urinary tract infection) 10/13/2023 ??? Hydronephrosis with urinary obstruction due to renal calculus 10/12/2023 ??? Lumbar radiculopathy 10/08/2023 ??? Gross hematuria 10/18/2022 ??? Bladder neck obstruction 10/17/2022 ??? Lesion of urinary bladder 10/17/2022 ??? Prostate cancer ([facility]) 10/17/2022 ??? HTN (hypertension) 10/10/2021 ??? Risk factors for obstructive sleep apnea 10/10/2021 ??? Failed total knee arthroplasty ([facility]/HCC) ([facility]) 08/07/2019 ??? Presence of right [...] Ayala MD Time: 11/07 2238 Comment: Called [facility] MRI. Patient is on the schedule for 2329 and is the next patient. By: Deisy Ayala MD Time: 11/08 56 Comment: Ortho spine requested CT of CT and L-spine non con. They are planning for OR By: Abdi Dwyer MD Paralysis of both lower limbs (CMS/HCC) ([facility]) Deisy Ayala MD Resident 11/07/23 302 Cosigned by Temo Hampton MD at 11/09/2023 12:50 AM FEED MANAGER MANAGER MANAGER Associated attestation - Temo Hampton MD - 11/09/2023 12:50 AM FEED MANAGER I have seen and examined the [...] pt was walking with walker. A&O4, VSS. MANAGER MANAGER * Jessenia Fox RN - 11/07/2023 9:13 PM CST Bed: [facility] Expected date: 11/07/23 Expected time: 12:00 AM Means of arrival: Medical Flight Comments: Jessenia Fox RN 11/07/232112 MANAGER documented in this encounter Miscellaneous Notes [...] Will remain free from infection Outcome: Progressing MANAGER * Plan of Care - Josiane Blakely RN - 11/16/2023 9:02 AM CST 11/16/23 0902 Communications Important Message from Medicare notice given to patient? Yes IM letter completed with patient/territory representative at bedside. Patient/territory representative were informed ofthe planned discharge date, the date the beneficiary's financial liability begins, the beneficiary's appeal rights, and how and when to initiate an appeal. Patient/territory representative were provided a copy of the IM letter and IM letter was placed in unit???s designated medical record bin to be uploaded into the patient???s chart. MANAGER * Plan of Care - Joann Hurtado RN - 11/16/2023 6:16 AM FEED MANAGER Goals: Problem: Activity: Goal: Mobility will improve [...] stable. Labs drawn. Patient slept some overnight. MANAGER * Plan of Care - Radha Hancock [...] Patient's painwell controlled. Will continue to monitor. MANAGER * Plan of Care - Josiane Blakely [...] plan Support following discharge: spouse Val Evans [phone]/facility Transportation: to be arranged prior to discharge F/U Appointments: to be scheduled by primary team Patient's Identified Problem/Goal Problem: Ensure acute medical needs are met and that patient has a safe discharge plan. Goal: Secure a discharge plan that patient/family are agreeable with and ensure patient has continuum of care. Patient and/or family are agreeable with plan. manager of data will continue to follow and assist with discharge planning as needed. If any further discharge needs arise, please contact the covering case assembler. MANAGER * Plan of Care - Joann Hurtado RN - 11/15/2023 7:08 AM FEED MANAGER Goals: Problem: Activity: Goal: Mobility will improve [...] stable. Neuro checks unchanged. Patient rested overnight. MANAGER * Plan of Care - Radha Hancock [...] and is A&Ox4. Will continue to monitor. MANAGER * Plan of Care - Josiane Blakely [...] plan Support following discharge: spouse Val Evans [phone]/facility Transportation: to be arranged prior to discharge F/U Appointments: to be scheduled by primary team Patient's Identified Problem/Goal Problem: Ensure acute medical needs are met and that patient has a safe discharge plan. Goal: Secure a discharge plan that patient/family are agreeable with and ensure patient has continuum of care. Patient and/or family are agreeable with plan. manager of data will continue to follow and assist with discharge planning as needed. If any further discharge needs arise, please contact the covering case assembler. MANAGER * Plan of Care - Son Brown [...] Will remain free from infection Outcome: Progressing MANAGER * Plan of Deny - Pau Clifford [...] at this time. Plan of care ongoing. MANAGER * Plan of Care - Josiane Blakely [...] therapy recs for IPR. Patient/spouse Val Bryanlinda [phone] prefer [facility] - electronic referral sent Support following discharge: spouse Val Evans [phone]/facility Transportation: to be arranged prior to discharge F/U Appointments: to be scheduled by primary team Patient's Identified Problem/Goal Problem: Ensure acute medical needs are met and that patient has a safe discharge plan. Goal: Secure a discharge plan that patient/family are agreeable with and ensure patient has continuum of care. Patient and/or family are agreeable with plan. manager of data will continue to follow and assist with discharge planning as needed. If any further discharge needs arise, please contact the covering case assembler. MANAGER * ECIN Note - Josiane Blakely RN [...] Meds/Most Recent Administrations protamine injection 40 mg [[id number]] Ordering Provider: Lex Carrillo III, MD Status: [...] Performed by: Jessenia Fox RN Scanned Package: [id number] acetaminophen (TYLENOL) tablet 1,000 mg [[id number]] Ordering Provider: Vicki Rehman NP Status: Dispensed Ordered On: 11/08/23 1141 Start: 11/08/23 1215 Ordered Dose (Remaining/Total): 1,000 mg (--/--) Route: oral Frequency: Every 6 hours Ordered Rate/Order Duration: -- / -- Timestamps Action Dose Route Other Information 11/12/23 1130 Given 1,000 mg oral Performed by: Portillo Cordero RN Scanned Package: [id number], [id number] dexAMETHasone (DECADRON) 4 mg/mL injection 4 mg [[id number]] Ordering Provider: Vicki Rehman NP Status: Dispensed [...] Performed by: Portillo Cordero RN Scanned Package: [id number] (PROTONIX) extended release tablet 40 mg [[id number]] Ordering Provider: Vicki Rehman NP Status: Dispensed Ordered On: 11/08/23 1204 Start: 11/08/23 1245 Ordered Dose (Remaining/Total): 40 mg (--/--) Route: oral Frequency: Daily Ordered Rate/Order Duration: -- / -- Admin Instructions: Do not crush, chew, cut, dissolve, open or otherwise manipulate tablet/capsule. Timestamps Action Dose Route Other Information 11/12/23 0857 Given 40 mg oral Performed by: Portillo Cordero RN Scanned Package: [id number] levETIRAcetam (KEPPRA) tablet 1,000 mg [[id number]] Ordering Provider: Vicki Rehman NP Status: Dispensed Ordered On: 11/08/23 1204 Start: 11/08/23 1245 Ordered Dose (Remaining/Total): 1,000 mg (--/--) Route: oral Frequency: 2 times daily Ordered Rate/Order Duration: -- / -- Timestamps Action Dose Route Other Information 11/12/23 0856 Given 1,000 mg oral Performed by: Portillo Cordero RN Scanned Package: [id number] gabapentin (NEURONTIN) capsule 300 mg [[id number]] Ordering Provider: Vicki Rehman NP Status: Dispensed Ordered On: 11/08/23 1204 Start: 11/08/23 1600 Ordered Dose (Remaining/Total): 300 mg (--/--) Route: oral Frequency: 3 times daily Ordered Rate/Order Duration: -- / -- Timestamps Action Dose Route Other Information 11/12/23 0857 Given 300 mg oral Performed by: Portillo Cordero RN Scanned Package: 35327-733-60 hydrALAZINE (APRESOLINE) injection 10 mg [[id number]] Ordering Provider: Vicki Rehman NP Status: Dispensed Ordered On: 11/08/23 1248 Start: 11/08/23 1248 Ordered Dose (Remaining/Total): 10 mg (--/--) Route: intravenous Frequency: Every 4 hours PRN Ordered Rate/Order Duration: -- / 2 Minutes Timestamps Action Dose / Duration Route Other Information 11/08/23 1254 Given 10 mg 2 Minutes intravenous Performed by: Hannah Jeffery RN Scanned Package: 94134-451-07 magnesium sulfate 2 g/50 mL in water (premix) 2 g [[id number]] Ordering Provider: Vicki Rehman NP Status: Completed (Past End Date/Time) Ordered On: 11/08/23 1322 Starts/Ends: 11/08/23 1400 - 11/08/23 1454 Ordered Dose (Remaining/Total): 2 g (0/1) Route: intravenous Frequency: Once Ordered Rate/Order Duration: -- / 60 Minutes Timestamps Action Dose / Duration Route Other Information 11/08/23 1354 New Bag 2 g 60 Minutes intravenous Performed by: Hannah Jeffery RN Scanned Package: 00166-371-56 ondansetron (ZOFRAN) injection 4 mg [[id number]] Ordering Provider: Vicki Rehman NP Status: Dispensed Ordered On: 11/08/23 1353 Start: 11/08/23 1352 Ordered Dose (Remaining/Total): 4 mg (--/--) Route: intravenous Frequency: Every 6 hours PRN Ordered Rate/Order Duration: -- / 2 Minutes Admin Instructions: 1st line Timestamps Action Dose / Duration Route Other Information 11/09/23 1322 Given 4 mg 2 Minutes intravenous Performed by: Lucio Gaines RN Scanned Package: [address]-5 ceFAZolin (ANCEF) 2,000 mg/20 mL in sterile water (premix) 2,000 mg [[id number]] Ordering Provider: Vicki Rehman NP Status: Dispensed [...] Cordero RN cetirizine (ZyrTEC) tablet 10 mg [[id number]] Ordering Provider: Vicki Rehman NP Status: Dispensed Ordered On: 11/08/23 1417 Start: 11/08/23 1500 Ordered Dose (Remaining/Total): 10 mg (--/--) Route: oral Frequency: Daily Ordered Rate/Order Duration: -- / -- Timestamps Action Dose Route Other Information 11/12/23 0856 Given 10 mg oral Performed by: Portillo Cordero RN Scanned Package: 0146-0349-91 cholecalciferol (VITAMIN D-3) capsule 5,000 Units [[id number]] Ordering Provider: Vicki Rehman NP Status: Dispensed Ordered On: 11/08/23 1417 Start: 11/08/23 1500 Ordered Dose (Remaining/Total): 5,000 Units (--/--) Route: oral Frequency: Daily Ordered Rate/Order Duration: -- / -- Admin Instructions: Each capsule contains 5,000 units (125 mcg) of cholecalciferol, Timestamps Action Dose Route Other Information 11/12/23 0857 Given 5,000 Units oral Performed by: Portillo Cordero RN Scanned Package: [id number] tamsulosin (FLOMAX) extended release capsule 0.8 mg [[id number]] Ordering Provider: Vicki Rehman NP Status: Dispensed Ordered On: 11/08/231416 Start: 11/08/23 1800 Ordered Dose (Remaining/Total): 0.8 mg (--/--) Route: oral Frequency: Daily with dinner Ordered Rate/Order Duration: -- / -- Admin Instructions: Do not crush, chew, cut, dissolve, open or otherwise manipulate tablet/capsule. Timestamps Action Dose Route Other Information 11/11/23 1729 Given 0.8 mg oral Performed by: Melissa Eddy RN Scanned Package: 68810-825-50, 46268-168-41 sodium chloride 0.9% flush 0.5-20 mL [[id number]] Ordering Provider: Aston Bragg MD Status: Verified Ordered On: 11/09/23 1620 Start: 11/09/23 1700 Ordered Dose (Remaining/Total): 0.5-20 mL (--/--) Route: intra-catheter Frequency: Every 8 hours scheduled Ordered Rate/Order Duration: -- / -- Admin Instructions: Flush volume based on line type and size. Timestamps Action Dose Route Other Information 11/12/23 0520 Given 10 mL intra-catheter Performed by: Madhav Hernandez RN Scanned Package: [id number] sodium chloride 0.9% flush 0.5-20 mL [[id number]] Ordering Provider: Aston Bragg MD Status: Verified Ordered On: 11/09/231619 Start: 11/09/231619 Ordered Dose (Remaining/Total): 0.5-20 mL (--/--) Route: intra-catheter Frequency: As needed Ordered Rate/Order Duration: -- / -- Admin Instructions: Flush volume based on line type and size. Flush before and after each use. (No admins scheduled or recorded for this medication) ondansetron (ZOFRAN) injection 4 mg [[id number]] Ordering Provider: Vicki Rehman NP Status: Completed (Past End Date/Time) Ordered On: 11/08/231708 Starts/Ends: 11/08/231744 - 11/08/231715 Ordered Dose (Remaining/Total): 4 mg (0/1) Route: intravenous Frequency: Once Ordered Rate/Order Duration: -- / 2 Minutes Timestamps Action Dose / Duration Route Other Information 11/08/231713 Given 4 mg 2 Minutes intravenous Performed by: Nkechi Gr RN Scanned Package: [address]-5 prochlorperazine (COMPAZINE) injection 5 mg [[id number]] Ordering Provider: Vicki Rehman NP Status: Dispensed Ordered On: 11/08/231708 Start: 11/08/231708 Ordered Dose (Remaining/Total): 5 mg (--/--) Route: intravenous Frequency: Every 6 hours PRN Ordered Rate/Order Duration: -- / 2 Minutes Timestamps Action Dose / Duration Route Other Information 11/09/23 1002 Given 5 mg 2 Minutes intravenous Performed by: Lucio Gaines RN Scanned Package: 06721-510-98 cyclobenzaprine (FLEXERIL) tablet 5 mg [[id number]] Ordering Provider: Vicki Rehman NP Status: Dispensed Ordered On: 11/08/231709 Start: 11/08/231708 Ordered Dose (Remaining/Total): 5 mg (--/--) Route: oral Frequency: 3 times daily PRN Ordered Rate/Order Duration: -- / -- Timestamps Action Dose Route Other Information 11/08/23 180 Given 5 mg oral Performed by: Eula Coffey RN Scanned Package: 83115-476-63 ramelteon (ROZEREM) tablet 8 mg [[id number]] Ordering Provider: Nuvia Cantu NP Status: Dispensed Ordered On: 11/08/232037 Start: 11/08/232114 Ordered Dose (Remaining/Total): 8 mg (--/--) Route: oral Frequency: Nightly Ordered Rate/Order Duration: -- / -- Timestamps Action Dose Route Other Information 11/11/232138 Given 8 mg oral Performed by: Madhav Hernandez RN Scanned Package: 55595-448-15 traZODone (DESYREL) tablet 50 mg [[id number]] Ordering Provider: Nuvia Cantu NP Status: Completed (Past End Date/Time) Ordered On: 11/08/232109 Starts/Ends: 11/08/232144 - 11/08/232114 Ordered Dose (Remaining/Total): 50 mg (0/1) Route: oral Frequency: Once Ordered Rate/Order Duration: -- / -- Timestamps Action Dose Route Other Information 11/08/232114 Given 50 mg oral Performed by: Johnie Arredondo RN Scanned Package: 03610-402-99 oxyCODONE (ROXICODONE) tablet 5 mg [[id number]] Ordering Provider: Alonso Burks MD Status: Completed (Past End Date/Time) Ordered On: 11/08/232257 Starts/Ends: 11/08/232329 - 11/08/232303 Ordered Dose (Remaining/Total): 5 mg (0/1) Route: oral Frequency: Once Ordered Rate/Order Duration: -- / -- Timestamps Action Dose Route Other Information 11/08/232303 Given 5 mg oral Performed by: Johnie Arredondo RN Scanned Package: 36820-807-75 Lactated Ringer's (LR) bolus 500 mL [[id number]] Ordering Provider: Nuvia Cantu NP Status: Completed [...] Performed by: Johnie Arredondo RN Scanned Package: 6418-7850-94 midazolam (VERSED) 1 mg/mL injection [[id number]] Ordering Provider: Honorio Hannon MD Status: Completed (Past End Date/Time) Ordered On: 11/09/23 08 Frequency: As needed Line Med Link Info Comment Peripheral IV 11/08/23 20 G Left Forearm 11/09/23 08 by Tamia Schroeder RN -- Timestamps Action Dose Route Other Information 11/09/23 08 Given 1 mg intravenous Performed by: Tamia Schoreder RN fentaNYL (SUBLIMAZE) preservative free injection [[id number]] Ordering Provider: Honorio Hannon MD Status: Completed (Past End Date/Time) Ordered On: 11/09/23 0808 Frequency: As needed Line Med Link Info Comment Peripheral IV 11/08/23 20 G Left Forearm 11/09/23 0808 by Tamia Schroeder RN -- Timestamps Action Dose Route Other Information 11/09/23 08 Given 50 mcg intravenous Performed by: Tamia Schroeder RN lidocaine PF (XYLOCAINE) 10 mg/mL (1 %) preservative free injection [[id number]] Ordering Provider: Honorio Hannon MD Status: Completed (Past End Date/Time) Ordered On: 11/09/23 0809 Frequency: As needed Timestamps Action Dose Route Other Information 11/09/23 0809 Given 4 mL Injection Performed by: Tamia Schroeder RN Comments: R Neck ioversoL (OPTIRAY 350) injection [[id number]] Ordering Provider: Honorio Hannon MD Status: Completed (Past End Date/Time) Ordered On: 11/09/23 0837 Frequency: As needed Timestamps Action Dose Route / Site / Linked Line Other Information 11/09/23 0837 Given 100 mL -- Performed by: Honorio Hannon MD Documented by: Tamia Schroeder RN acyclovir (ZOVIRAX) tablet 400 mg [[id number]] Ordering Provider: Vicki Rehman NP Status: Dispensed Ordered On: 11/09/23 0956 Start: 11/09/23 1030 Ordered Dose (Remaining/Total): 400 mg (--/--) Route: oral Frequency: 2 times daily Ordered Rate/Order Duration: -- / -- Timestamps Action Dose Route Other Information 11/12/23 0856 Given 400 mg oral Performed by: Portillo Cordero RN Scanned Package: 41640-487-69 ioversoL (OPTIRAY 350) syringe 100 mL [[id number]] Ordering Provider: Vicki Rehman NP Status: Completed (Past End Date/Time) Ordered On: 11/09/23 1208 Starts/Ends: 11/09/23 1208 - 11/09/23 1223 Ordered Dose (Remaining/Total): 100 mL (0/1) Route: intravenous Frequency: Once in imaging Ordered Rate/Order Duration: -- / -- Timestamps Action Dose Route Other Information 11/09/23 1223 Contrast Given 63 mL intravenous Performed by: Silver Magdaleno, dextrose gel in packet 15 g [[id number]] Ordering Provider: Vicki Rehman NP Status: Verified [...] medication) dextrose (D10W) 10% bolus 250 mL [[id number]] Ordering Provider: Vicki Rehman NP Status: Verified [...] hour post treatment. If BG is less [id number] mg/dL, repeat Q15 minute BG checks and treatment. Call MD for each episode of hypoglycemia. (No admins scheduled or recorded for this medication) glucagon injection 1 mg [[id number]] Ordering Provider: Vicki Rehman NP Status: Verified [...] (HumaLOG, ADMELOG) 100 unit/mL injection 0-10 Units [[id number]] Ordering Provider: Vicki Rehman NP Status: Dispensed [...] Performed by: Portillo Cordero RN Scanned Package: 8457-0299-54 insulin lispro (HumaLOG, ADMELOG) 100 unit/mL injection 0-5 Units [[id number]] Ordering Provider: Vicki Rehman NP Status: Dispensed [...] Performed by: Madhav Hernandez, NARENDRA Scanned Package: 8796-7240-33 senna-docusate (PERICOLACE) 8.6-50 mg per tablet 2 tablet [[id number]] Ordering Provider: Dorie Sofia NP Status: Dispensed Ordered On: 11/10/23 1035 Start: 11/10/23 1115 Ordered Dose (Remaining/Total): 2 tablet (--/--) Route: oral Frequency: 2 times daily Ordered Rate/Order Duration: -- / -- Timestamps Action Dose Route Other Information 11/11/23 0838 Given 2 tablet oral Performed by: Melissa Eddy RN Scanned Package: 7114-4738-76, 1575-4602-19 bisacodyL (DULCOLAX) suppository 10 mg [[id number]] Ordering Provider: Dorie Sofia NP Status: Dispensed Ordered On: 11/10/23 1035 Start: 11/10/23 1115 Ordered Dose (Remaining/Total): 10 mg (--/--) Route: rectal Frequency: Daily Ordered Rate/Order Duration: -- / -- Timestamps Action Dose Route Other Information 11/10/23 1636 Given 10 mg rectal Performed by: Melissa Eddy RN Comments: patientt request Scanned Package: 2713-3911-40 lactulose 0.67 gram/mL oral solution 20 g [[id number]] Ordering Provider: Dorie Sofia NP Status: Completed (Past End Date/Time) Ordered On: 11/10/23 1634 Starts/Ends: 11/10/23 1715 - 11/10/23 1719 Ordered Dose (Remaining/Total): 20 g (0/1) Route: oral Frequency: Once Ordered Rate/Order Duration: -- / -- Timestamps Action Dose Route Other Information 11/10/23 1719 Given 20 g oral Performed by: Melissa Eddy RN Scanned Package: 4445-1139-34 sodium chloride 0.9% IVPB 0-250 mL [[id number]] Ordering Provider: Dorie Sofia NP Status: Completed [...] Performed by: Melissa Eddy RN Scanned Package: 7681-7556-70 vancomycin 1,000 mg/200 mL in dextrose 5% (premix) 1,000 mg [[id number]] Ordering Provider: Francisco Javier Aleman NP Status: Dispensed Ordered On: 11/12/23 0758 Start: 11/12/23 1800 Ordered Dose (Remaining/Total): 1,000 mg (--/--) Route: intravenous Frequency: Every 12 hours Ordered Rate/Order Duration: -- / 60 Minutes (No admins scheduled or recorded for this medication) lidocaine PF (XYLOCAINE) 10 mg/mL (1 %) preservative free injection 100 mg [[id number]] Ordering Provider: Nasir Manzanares MD Status: Dispensed Ordered On: 11/12/23 0807 Starts/Ends: 11/12/23 0845 - 11/13/23 0845 Ordered Dose (Remaining/Total): 10 mL (1/1) Route: infiltration Frequency: Once Ordered Rate/Order Duration: -- / -- (No admins scheduled or recorded for this medication) traMADoL (ULTRAM) tablet 50 mg [[id number]] Ordering Provider: Nasir Manzanares MD Status: Completed (Past End Date/Time) Ordered On: 11/12/23 0904 Starts/Ends: 11/12/23 0945 - 11/12/23 0915 Ordered Dose (Remaining/Total): 50 mg (01) Route: oral Frequency: Once Ordered Rate/Order Duration: -- / -- Timestamps Action Dose Route Other Information 11/12/23 0915 Given 50 mg oral Performed by: Portillo Cordero RN Scanned Package: [id number] , OT Eval and Treat Last 72 [...] Equipment-Currently Using Wheeled walker -BB Level of [place] Independent with ADLs;Independent functional transfers;Independent with ambulation;Needs assistance with homemaking -BB Lives With Spouse -BB Receives Help From Spouse/Significant other;Family multimedia producer assist available -BB Driving Yes has not driven for several weeks -BB ADL Assistance Independent pts provided spv in the last few weeks -BB Instrumental ADL (IADL) Assistance -- completed by /family -BB 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 -BB Fall within the last 6 months [...] performing ADLs with supervision -AR Level of [place] Independent functional transfers;Independent with ambulation -AR Lives [...] patient to new unit Once (Routine) Question: ([facility]) Service: Answer: Ortho 11/09/23 1208 , Wound [...] 105 93 - 95 95 11/12 947 MANAGER * Plan of Care - Melissa Eddy [...] risk of falls will improve Outcome: Progressing MANAGER * Plan of Care - Melissa Eddy [...] increase the pain will improve Outcome: Progressing MANAGER * Initial Assessments - Arlyn Suresh MSW [...] : Yes-DPOA DPOA Name/Phone: Val Evans Spouse [phone] 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 (11/10/23 1503) Current Situation: Current Situation Living Arrangements: Spouse/significant other Type of Residence: Private residence Income: Employed, Skilled Nursing/Pension Income Comment: Patient works full-time. Spouse recieves halfway income and SS. Education Level : Advanced [...] Children Spouse Name/Contact Information: Val Evans Spouse [phone] Children Name/Contact Information: Marcial Evans Son [phone],Stefan Evans Son [phone], Mary Pina Daughter [phone] Do you have a Caodaism Preference or Affiliation?: Yes Preference/Affiliation : Atheist Are there any Caodaism Practices that are important to maintain while [...] More than three times a week Attends Caodaism Services: Never Active Member of Clubs or [...] source for support and Val Evans (Spouse) ([phone]) is identified as surrogate decision maker. Predictive [...] Case management following for discharge. GEN Alvarez Pharmacist Assistant Please refer to [facility] chart for contact information MANAGER * Plan of Care - Son Brown [...] Will remain free from infection Outcome: Progressing MANAGER * Plan of Care - Kasey Emmanuel RN - 11/09/2023 4:05 PM FEED MANAGER Problem: Lack of Knowledge: Goal: Understanding of [...] IVC filter placement. Patient successfully transferred to [facility]. Patient reports minimal pain at this time. MANAGER * Initial Assessments - Melissa Barker RN - 11/09/2023 3:32 PM CST CM Initial Assessment Interview Note Information Obtained From: Other (Specify) Name: per chart review (11/09/231512) Admission Source: OSH Impression: 73 year old male admitted for paralysis of both lower limbs Plan Includes: Discharge patient to appropriate level of care when medically stable. manager of data will continue to follow and assess for discharge needs. Primary Source of Transportation: Does the patient need discharge transport arranged?: No (family) (11/09/231512) Health Insurance Coverage: [facility] Medicare Prescription Coverage: yes Pharmacy: [facility] [address] [place] [id number] [address] [id number] [address] [facility] [id number] Primary Care Provider: Rl Medina DO Prior to Admission: Primary Caregiver: Self Support System: Spouse/Significant Other, Children Home Care Services: No (recent discharge from [facility] on 10/30 and unable to find home care at that time) Durable Medical Equipment: Cane (single prong), Walker (wheeled) Living Arrangements: Spouse/significant other Type of Residence: Private residence Medication management: Independent (11/09/231512) Potential discharge needs include: Home Health: Physical therapy, Occupational therapy, retirement (11/09/231512) Behavioral Health Services: Behavioral Health Services: [...] Collaboration with patient, MD, direct care nurse, Pharmacist Assistant, and other members of the health care team to assure needed interventions completed. 2. Return patient to optimal level of self-care post discharge. 3. Nurse Emergency Room will follow for Discharge Planning - interventions [...] with the aftercare plan. Melissa Barker RN MANAGER * Significant Event - Vicki Rehman Nathalie, CARLA - 11/09/2023 2:09 PM FEED MANAGER CHUGG-OUT (SICU to OU/Floor Transfer) SICU HANDOFF [...] of the Ortho spine service. QUESTIONS? Call [phone] ([phone]). MANAGER * Plan of Care - Damaris Maxwell LCSW - 11/09/2023 11:44 AM CST Patient flagged as a 30 day readmission. Patient is A&Ox1 and no family present at bedside. PerRN, patient's spouse intends to visit this afternoon. SW will attempt to complete assessment with spouse this afternoon. GEN Munoz, LUGGAGE ATTENDANT MANAGER * Plan of Care - Melissa Barker RN - 11/09/2023 10:38 AM FEED MANAGER LUIS received call from Medina from [facility] phone: [phone] ext [phone]. Wants to know if patient will need a swing bed on discharge? CM will follow for dc recommendations. Melissa Barker RN Case Management 11/09/2023 MANAGER * Post-Procedure Note - Honorio Hannon MD - 11/09/2023 8:37 AM FEED MANAGER Radiology Brief Post Procedure Note Attending: Verena Sheep Shearer: Riddhi Sedation/Anesthesia: Min Sedation Pre-Op/Pre-Procedure Diagnosis: Pulmonary embolism Post-Op/Post-Procedure Diagnosis: same Procedure Performed: IVC filter placement Procedure Findings: successful placement of infrarenal Tulip IVC filter Complications: None Estimated Blood Loss: < 30 ml Specimens: None Condition: Stable Full report to follow. MANAGER * Plan of Care - Johnie Arredondo RN - 11/08/2023 11:21 PM FEED MANAGER Goals: Clinical Goals for the Shift: pain [...] remain free from infection Outcome: Not Progressing MANAGER * Plan of Care - Damaris Maxwell LCSW - 11/08/2023 3:16 PM CST Patient flagged as a 30 day readmission. SW attempted to meet with him to complete assessment, however he was with nursing staff and unavailable. SW will attempt again at a later time. GEN Munoz LCSW MANAGER * Pre-Procedure Note - Aston Bragg MD - 11/08/2023 2:28 PM FEED MANAGER PRE-SEDATION ASSESSMENT/H&P Patient is a 73 [...] Noted Paralysis of both lower limbs (CMS/HCC) ([facility]) 11/07/2023 Pulmonary embolism ([facility]) 10/26/2023 S/P spinal fusion 10/23/2023 Cardiac arrest ([facility]) 10/23/2023 Left perinephric collection, 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 10/15/2023 Ureteral colic 10/13/2023 UTI (urinary tract infection) 10/13/2023 Hydronephrosis with urinary obstruction due to renal calculus 10/12/2023 Lumbar radiculopathy 10/08/2023 Gross hematuria 10/18/2022 Bladder neck obstruction 10/17/2022 Lesion of urinary bladder 10/17/2022 Prostate cancer ([facility]) 10/17/2022 HTN (hypertension) 10/10/2021 Risk factors for obstructive sleep apnea 10/10/2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 All questions answered and they agree to proceed. MANAGER * Op Note - Marcial Vu MD - 11/08/2023 4:57 AM CST Operative Report Surgeon Marcial Vu MD Residential Coordinator(s) MD Avila Fontenot MD Michele Christy, MD [...] the left quadriceps weakness with my senior computer specialist prior to developing a final surgical [...] a left ureteral stone and was admitted [facility] on October 12, 2023. The decision [...] hematoma and requested that they present to [facility] Emergency Department immediately. His imaging demonstrated a [...] on Discharge Stable. Marcial Vu Jr., MD Day Light Relief Operator Department of Orthopaedic Surgery Division of Spine Surgery [facility] [employer] [facility] [place], MD Operative Report dictated by Marcial Vu MD on 11/09/23 using Fluency Direct. Transcriptionvariances may occur. MANAGER MANAGER MANAGER * Brief Op Note - Nasir Manzanares MD - 11/08/2023 4:57 AM CST Operative Progress Note Surgical Team: Surgeon(s) and Role: * Marcial Vu MD - Primary * Simeon Cuevas MD - Assisting * Avila Esqueda MD - Resident - Assisting Anesthesiologist: Edmond Barker MD; Hood Kim MD Access Rep: George Plummer MD; Javad Morales MD Epidemiology Internship: Silver Chow RN; Aranza Mariano RN Epidemiology Internship Relief: Justin Odonnell RN Scrub: Paige Vega ST; Anjana Glaser RN; Linda Tompkins RN Maintenance Repairer: Adia Poe MT Epidemiology Internship Second: Aileen Morales RN; Jamaica Dunlap RN [...] Marcial Vu MD at 11/08/2023 4:23 PM FEED MANAGER MANAGER MANAGER * ED Procedure Note - Eula Wagoner MD - 11/08/2023 2:18 AM FEED MANAGER Associated Order(s): Critical Care Procedure Critical Care [...] medical record. Eula Wagoner MD 11/08/23 0219 MANAGER * ED Re-evaluation Note - Abdi Dwyer MD - 11/07/2023 11:04 PM FEED MANAGER ED Re-evaluation TRANSITION OF CARE: IAbdi MD, [...] Ayala MD Time: 11/07 2238 Comment: Called [facility] MRI. Patient is on the schedule for 2329 and is the next patient. By: Deisy Ayala MD Time: 11/08 56 Comment: Ortho spine requested CT of CT and L-spine non con. They are planning for OR By: Abdi Dwyer MD Final diagnoses: Paralysis of both lower limbs (CMS/HCC) (HCC) Abdi Dwyer MD Resident 11/11/23 1626 MANAGER * ED Procedure Note - Temo Hampton [...] the admitting team. Temo Hampton MD 11/07/23 3181 MANAGER * Plan of Deny - Latha Gaston RN - 11/07/2023 9:00 PM CST As part of the readmission prevention initiative, ED CM receives an automated alert on patient who was discharged from [facility] inpatient admission </=7 days (DC 10/30/23; ED treatment team aware). Per EMR, pt activity enrolled with [facility]), so full chart review not completed. Secure message received from [facility] (Outpatient Nurse Emergency Room) confirming follow and willingness to provide assistance as needed. For questions or care management/discharge assistance please contact licensed occupational therapist [facility] #[phone], ED CM [phone], or ED SW [phone]. MANAGER * ED Pre-Arrival Note - Niyah Anderson RN - 11/07/2023 7:23 PM FEED MANAGER Pre-Arrival Note 73 M- Presented to OSH with c/o BLE numbness and tingling, unable to ambulate. Post-op 10/19/23, laminectomy on L4/L5 with Dr. Vu, concern for hematoma. Accepted to ED by Dr. Moises Anderson, NARENDRA MANAGER documented in this encounter Plan of Treatment Pending Results Name Type Priority Associated Diagnoses Date /Time Basic metabolic panel Lab Routine 03/2024 11:30 PM FEED MANAGER Lidocaine level Lab Routine 11:13 PM FEED MANAGER Scheduled Orders Name Type Priority Associated Diagnoses [...] GLUCOSE DEVICE Routine 11/16/2023 1 1:35 AM FEED MANAGER POCT GLUCOSE DEVICE Routine 11/16/2023 7 :53 AM FEED MANAGER POCT GLUCOSE DEVICE Routine 11/15/2023 9 :20 PM FEED MANAGER EGFR Timed 11/15/2023 9:18 PM FEED MANAGER CBC WITHOUT DIFFERENTIAL Timed 11/15/2023 9:18 PM FEED MANAGER PHOSPHORUS Timed 11/15/2023 9:18 PM FEED MANAGER MAGNESIUM Timed 11/15/2023 9:18 PM FEED MANAGER BASIC METABOLIC PANEL Timed 11/15/2023 9:18 PM FEED MANAGER POCT GLUCOSE DEVICE Routine 11/15/2023 5 :17 PM FEED MANAGER POCT GLUCOSE DEVICE Routine 11/15/2023 1 2:20 PM FEED MANAGER POCT GLUCOSE DEVICE Routine 11/15/2023 8 :02 AM FEED MANAGER POCT GLUCOSE DEVICE Routine 11/14/2023 8 :39 PM FEED MANAGER POCT GLUCOSE DEVICE Routine 11/14/2023 5 :44 PM FEED MANAGER XR SPINE THORACIC 2 VIEWS IP Routine 11/14/2023 1:51 PM FEED MANAGER XR SPINE LUMBAR 2 OR 3 VIEWS IP Routine 11/14/2023 1:51 PM FEED MANAGER XR SPINE CERVICAL 2 OR 3 VIEWS IP Routine 11/14/2023 1:50 PM FEED MANAGER POCT GLUCOSE DEVICE Routine 11/14/2023 1 1:52 AM FEED MANAGER POCT GLUCOSE DEVICE Routine 11/14/2023 8 :04 AM FEED MANAGER POCT GLUCOSE DEVICE Routine 11/13/2023 8 :11 PM FEED MANAGER EGFR Timed 11/13/2023 8:07 PM FEED MANAGER CBC WITHOUT DIFFERENTIAL Timed 11/13/2023 8:07 PM FEED MANAGER PHOSPHORUS Timed 11/13/2023 8:07 PM FEED MANAGER MAGNESIUM Timed 11/13/2023 8:07 PM FEED MANAGER BASIC METABOLIC PANEL Timed 11/13/2023 8:07 PM FEED MANAGER POCT GLUCOSE DEVICE Routine 11/13/2023 4 :58 PM FEED MANAGER POCT GLUCOSE DEVICE Routine 11/13/2023 1 2:22 PM FEED MANAGER POCT GLUCOSE DEVICE Routine 11/13/2023 7 :34 AM FEED MANAGER POCT GLUCOSE DEVICE Routine 11/12/2023 9 :34 PM FEED MANAGER POCT GLUCOSE DEVICE Routine 11/12/2023 5 :15 PM FEED MANAGER POCT GLUCOSE DEVICE Routine 11/12/2023 1 1:25 AM FEED MANAGER POCT GLUCOSE DEVICE Routine 11/12/2023 7 :59 AM FEED MANAGER POCT GLUCOSE DEVICE Routine 11/11/2023 9 :38 PM FEED MANAGER EGFR Routine 11/11/2023 9:35 PM FEED MANAGER CBC WITHOUT DIFFERENTIAL Routine 11/11/2023 9:35 PM FEED MANAGER PHOSPHORUS Routine 11/11/2023 9:35 PM FEED MANAGER MAGNESIUM Routine 11/11/2023 9:35 PM FEED MANAGER BASIC METABOLIC PANEL Routine 11/11/2023 9:35 PM FEED MANAGER POCT GLUCOSE DEVICE Routine 11/11/2023 5 :37 PM FEED MANAGER CBC WITHOUT DIFFERENTIAL Routine 11/11/2023 5:08 PM FEED MANAGER VANCOMYCIN LEVEL TROUGH Timed 11/11/2023 2:44 PM FEED MANAGER TRANSFUSE RED BLOOD CELLS Timed 11/11/2023 12:56 PM FEED MANAGER POCT GLUCOSE DEVICE Routine 11/11/2023 1 2:11 PM FEED MANAGER TYPE AND SCREEN Timed 11/11/2023 11:29 AM FEED MANAGER PREPARE RBC Timed 11/11/2023 10:08 AM FEED MANAGER POCT GLUCOSE DEVICE Routine 11/11/2023 8 :33 AM FEED MANAGER EGFR Routine 11/10/2023 11:13 PM FEED MANAGER LIDOCAINE LEVEL Routine 11/10/2023 11:13 PM FEED MANAGER CBC WITHOUT DIFFERENTIAL Routine 11/10/2023 11:13 PM FEED MANAGER PHOSPHORUS Routine 11/10/2023 11:13 PM FEED MANAGER MAGNESIUM Routine 11/10/2023 11:13 PM FEED MANAGER BASIC METABOLIC PANEL Routine 11/10/2023 11:13 PM FEED MANAGER POCT GLUCOSE DEVICE Routine 11/10/2023 8 :50 PM FEED MANAGER POCT GLUCOSE DEVICE Routine 11/10/2023 5 :31 PM FEED MANAGER POCT GLUCOSE DEVICE Routine 11/10/2023 1 1:47 AM FEED MANAGER POCT GLUCOSE DEVICE Routine 11/10/2023 8 :00 AM FEED MANAGER VANCOMYCIN LEVEL TROUGH Timed 11/10/2023 2:59 AM FEED MANAGER EGFR Routine 11/09/2023 11:30 PM FEED MANAGER LIDOCAINE LEVEL Routine 11/09/2023 11:30 PM FEED MANAGER CBC WITHOUT DIFFERENTIAL Routine 11/09/2023 11:30 PM FEED MANAGER BASIC METABOLIC PANEL Routine 11/09/2023 11:30 PM FEED MANAGER EGFR Routine 11/09/2023 8:41 PM FEED MANAGER CBC WITHOUT DIFFERENTIAL Routine 11/09/2023 8:41 PM FEED MANAGER PHOSPHORUS Routine 11/09/2023 8:41 PM FEED MANAGER MAGNESIUM Routine 11/09/2023 8:41 PM FEED MANAGER BASIC METABOLIC PANEL Routine 11/09/2023 8:41 PM FEED MANAGER POCT GLUCOSE DEVICE Routine 11/09/2023 8 :38 PM FEED MANAGER POCT GLUCOSE DEVICE Routine 11/09/2023 4 :47 PM FEED MANAGER POCT GLUCOSE DEVICE Routine 11/09/2023 3 :[address] CHEST PE W CONTRAST IP Routine 11/09/2023 12:22 PM FEED MANAGER LIDOCAINE LEVEL Timed 11/09/2023 11:43 AM FEED MANAGER POCT GLUCOSE DEVICE Routine 11/09/2023 1 1:04 AM FEED MANAGER CRITICAL CARE Routine 11/09/2023 9:22 AM FEED MANAGER Paralysis of both lower limbs (CMS/HCC) (HCC) INSERT VENA CAVA FILTER IP Routine 11/09/2023 8:47 AM FEED MANAGER POCT GLUCOSE DEVICE Routine 11/09/2023 7 :07 AM FEED MANAGER POCT GLUCOSE DEVICE Routine 11/09/2023 3 :24 AM FEED MANAGER POCT GLUCOSE DEVICE Routine 11/08/2023 1 1:49 PM FEED MANAGER EGFR Routine 11/08/2023 9:01 PM FEED MANAGER CBC WITHOUT DIFFERENTIAL Routine 11/08/2023 9:01 PM FEED MANAGER PHOSPHORUS Routine 11/08/2023 9:01 PM FEED MANAGER MAGNESIUM Routine 11/08/2023 9:01 PM FEED MANAGER BASIC METABOLIC PANEL Routine 11/08/2023 9:01 PM FEED MANAGER POCT GLUCOSE DEVICE Routine 11/08/2023 7 :10 PM FEED MANAGER CRITICAL CARE Routine 11/08/2023 6:15 PM FEED MANAGER Paralysis of both lower limbs (CMS/HCC) (HCC) US VEIN DUPLEX LOWER EXTREMITY BILATERAL COMPLETE ED Urgent/IP Urgent 11/08/2023 3:07 PM FEED MANAGER POCT GLUCOSE DEVICE Routine 11/08/2023 3 :05 PM FEED MANAGER CRITICAL CARE Routine 11/08/2023 12:12 PM FEED MANAGER EGFR STAT 11/08/2023 11:51 AM FEED MANAGER CALCIUM, IONIZED STAT 11/08/2023 11:5 1 AM FEED MANAGER PROTIME-INR STAT 11/08/2023 11:51 AM FEED MANAGER CBC WITHOUT DIFFERENTIAL STAT 11/08/2023 11:51 AM FEED MANAGER PHOSPHORUS STAT 11/08/2023 11:51 AM FEED MANAGER MAGNESIUM STAT 11/08/2023 11:51 AM FEED MANAGER BASIC METABOLIC PANEL STAT 11/08/2023 11:51 AM FEED MANAGER POCT GLUCOSE DEVICE Routine 11/08/2023 1 1:41 AM FEED MANAGER TRANSFUSE PLASMA Timed 11/08/2023 9:32 AM FEED MANAGER POC BLOOD GAS AND CHEMISTRIES, ARTERIAL Routine 11/08/2023 8:22 AM FEED MANAGER TRANSFUSE RED BLOOD CELLS Timed 11/08/2023 7:36 AM FEED MANAGER POC BLOOD GAS AND CHEMISTRIES, ARTERIAL Routine 11/08/2023 7:05 AM FEED MANAGER POC BLOOD GAS AND CHEMISTRIES, ARTERIAL Routine 11/08/2023 6:00 AM FEED MANAGER TRANSFUSE RED BLOOD CELLS Timed 11/08/2023 5:58 AM FEED MANAGER TRANSFUSE RED BLOOD CELLS Timed 11/08/2023 4:52 AM FEED MANAGER POC BLOOD GAS AND CHEMISTRIES, ARTERIAL Routine 11/08/2023 4:18 AM FEED MANAGER REPAIR DURAL TEAR 11/08/2023 2:5 8 AM FEED MANAGER Paralysis of both lower limbs (CMS/HCC) ([facility]) Case Notes Called [facility] [phone] @ 0208 notified him we need him for emergent spine case in 235, he said It might be a while but he will be there. SPINAL CORD MONITORING 11/08/2023 2:58 AM FEED MANAGER Paralysis of both lower limbs (CMS/HCC) ([facility]) Case Notes Called [facility] [phone] @ 0208 notified him we need him for emergent spine case in 235, he said It might be a while but he will be there. LAMINECTOMY LUMBAR - POSTERIOR 11/08/2023 2:58 AM FEED MANAGER Paralysis of both lower limbs (CMS/HCC) ([facility]) Case Notes Called [facility] [phone] @ 0208 notified him we need him for emergent spine case in 235, he said It might be a while but he will be there. LAMINECTOMY THORACIC DECOMPRESSION 11/08/2023 2:58 AM FEED MANAGER Paralysis of both lower limbs (CMS/HCC) ([facility]) Case Notes Called [facility] [phone] @ 0208 notified him we need him for emergent spine case in 235, he said It might be a while but he will be there. PREPARE PLASMA STAT 11/08/2023 2:28 AM FEED MANAGER PREPARE RBC STAT 11/08/2023 2:28 AM FEED MANAGER ED CRITICAL CARE Routine 11/08/2023 2:[address] CERVICAL THORACIC LUMBAR SPINE WO CONTRAST ED Urgent/IP Urgent 11/08/2023 2:09 AM FEED MANAGER XR SPINE LUMBAR 2 OR 3 VIEWS ED Urgent/IP Urgent 11/08/2023 1:14 AM FEED MANAGER XR SPINE THORACIC 3 VIEWS ED Urgent/IP Urgent 11/08/2023 1:13 AM FEED MANAGER MRI SPINE TOTAL COMPLETE WO CONTRAST ED Urgent/IP Urgent 11/08/2023 12:44 AM FEED MANAGER EGFR STAT 11/07/2023 11:01 PM FEED MANAGER APTT STAT 11/07/2023 11:01 PM FEED MANAGER PROTIME-INR STAT 11/07/2023 11:01 PM FEED MANAGER CBC WITHOUT DIFFERENTIAL STAT 11/07/2023 11:01 PM FEED MANAGER TYPE AND SCREEN STAT 11/07/2023 11:01 PM FEED MANAGER BASIC METABOLIC PANEL STAT 11/07/2023 11:[address] CRITICAL CARE ILL/INJURED PATIENT INIT 30-74 MIN Routine 11/07/2023 10:43 PM FEED MANAGER documented in this encounter Results * POCT glucose (11/16/2023 11:35 AM FEED MANAGER) [facility] Signature Glucose, POC 166 70 - 199 mg/dL [facility] Blood 11/16/2023 11:3 5 AM FEED MANAGER 11/16/2023 11:35 AM FEED MANAGER Marcial Vu Jr., MD LAB POCT ORDERABLES - DEVICE Final Result [facility] Department [place] [address] * POCT glucose (11/16/2023 7:53 AM FEED MANAGER) Glucose, POC 142 70 - 199 mg/dL [facility] Blood 11/16/2023 7:53 AM FEED MANAGER 11/16/2023 7:53 AM FEED MANAGER Marcial Vu Jr., MD LAB POCT ORDERABLES - DEVICE Final Result Performing Organization Address City/[facility]/ZIP Co de Phone Number [facility] Department [place] [address] * POCT glucose (11/15/2023 9:20 PM FEED MANAGER) Glucose, POC 182 70 - 199 mg/dL [facility] Blood 11/15/2023 9:20 PM FEED MANAGER 11/15/2023 9:20 PM FEED MANAGER Marcial Vu Jr., MD LAB POCT ORDERABLES - DEVICE Final Result Performing Organization Address [facility] de Phone Number [facility] Department [place] [address] * eGFR (11/15/2023 9:18 PM FEED MANAGER) eGFR >90 >=60 mL/min/1. 73 m2 [facility] Comment: Interpretive Data Reference Interval Normal [...] last reviewed 2021. Blood 11/15/2023 9:18 PM FEED MANAGER 11/15/2023 9:38 PM FEED MANAGER Francisco Javier Aleman GRANITE FABRICATOR LAB BLOOD ORDERABLES Fi nal Result Performing Organization Address [facility] Co de Phone Number [facility] Department [place] [address] * Phosphorus (11/15/2023 9:18 PM FEED MANAGER) Phosphorus, pl 2.7 2.3 - 4.5 mg/dL [facility] Blood 11/15/2023 9:18 PM FEED MANAGER 11/15/2023 9:38 PM FEED MANAGER Francisco Javier Aleman GRANITE FABRICATOR LAB BLOOD ORDERABLES Fi nal Result Performing Organization Address [facility] de Phone Number [facility] Department [place] [address] * Magnesium (11/15/2023 9:18 PM FEED MANAGER) Magnesium 2.1 1.4 - 2.5 mg/dL [facility] Blood 11/15/2023 9:18 PM FEED MANAGER 11/15/2023 9:38 PM FEED MANAGER Francisco Javier Aleman GRANITE FABRICATOR LAB BLOOD ORDERABLES Fi nal Result Performing Organization Address [facility] de Phone Number CERNER [facility] Department [place] [address] * (ABNORMAL) CBC without differential (11/15/2023 9:18 PM FEED MANAGER) [facility] WBC 13.0(H) 3.8 - 9.9 K/cumm [facility] Hgb 9.1(L) 13.0 - 17.5 g/dL [facility] Hct 27.1(L) 38.9 - 50.3 % [facility] Plt 182 150 - 400 K/cumm [facility] MPV 11.2 9.1 - 12.3 fL [facility] RBC 2.99(L) 4.30 - 5.80 M/cumm [facility] MCV 90.6 81.3 - 96.4 fL [facility] MCH 30.4 27.1 - 33.3 pg [facility] MCHC 33.6 32.3 - 35.7 g/dL [facility] RDW CV 14.8 11.1 - 14.9 % [facility] RDW SD 47.6 35.7 - 48.1 fL [facility] NRBC abs 0.00 0.00 - 0.01 K/cumm [facility] Blood 11/15/2023 9:18 PM FEED MANAGER 11/15/2023 9:38 PM FEED MANAGER Francisco Javier Aleman GRANITE FABRICATOR LAB BLOOD ORDERABLES nal Result [facility] Department [place] [address] * (ABNORMAL) Basic metabolic panel (11/15/2023 9:18 PM FEED MANAGER) [facility] Sodium 135 135 - 145 mmol/L [facility] Potassium, pl 4.1 3.3 - 4.9 mmol/L [facility] Chloride 103 97 - 110 mmol/L [facility] CO2 25 22 - 32 mmol/L [facility] Anion gap 7 2 - 15 mmol/L [facility] BUN 24 6 - 25 mg/dL [facility] Creatinine 0.72(L) 0.80 - 1.30 mg/dL [facility] Glucose 185 70 - 199 mg/dL [facility] Comment: Interpretive Data Fasting glucose >/= [...] 2022. Calcium 8.0(L) 8.5 - 10.3 mg/dL [facility] Blood 11/15/2023 9:18 PM FEED MANAGER 11/15/2023 9:38 PM FEED MANAGER Francisco Javier Aleman NP LAB BLOOD ORDERABLES Fi nal Result [facility] [place] [address] * POCT glucose (11/15/2023 5:17 PM FEED MANAGER) Glucose, POC 163 70 - 199 mg/dL [facility] Blood 11/15/2023 5:17 PM FEED MANAGER 11/15/2023 5:17 PM FEED MANAGER us Marcial Vu Jr., MD LAB POCT ORDERABLES - DEVICE Final Result [facility] [place] [address] * POCT glucose (11/15/2023 12:20 PM FEED MANAGER) Glucose, POC 170 70 - 199 mg/dL [facility] Blood 11/15/2023 12:2 0 PM FEED MANAGER 11/15/2023 12:20 PM FEED MANAGER us Marcial Vu Jr., MD LAB POCT ORDERABLES - DEVICE Final Result Performing Organization Address [facility] de Phone Number [facility] [place] [address] * POCT glucose (11/15/2023 8:02 AM FEED MANAGER) Glucose, POC 157 70 - 199 mg/dL [facility] Blood 11/15/2023 8:02 AM FEED MANAGER 11/15/2023 8:02 AM FEED MANAGER us Marcial Vu Jr., MD LAB POCT ORDERABLES - DEVICE Final Result Performing Organization Address [facility] de Phone Number [facility] [place] [address] * POCT glucose (11/14/2023 8:39 PM FEED MANAGER) Glucose, POC 180 70 - 199 mg/dL [facility] Blood 11/14/2023 8:39 PM FEED MANAGER 11/14/2023 8:39 PM FEED MANAGER us Marcial Vu Jr., MD LAB POCT ORDERABLES - DEVICE Final Result Performing Organization Address [facility] de Phone Number [facility] [place] [address] * POCT glucose (11/14/2023 5:44 PM FEED MANAGER) Glucose, POC 193 70 - 199 mg/dL [facility] Blood 11/14/2023 5:44 PM FEED MANAGER 11/14/2023 5:44 PM FEED MANAGER us Marcial Vu Jr., MD LAB POCT ORDERABLES - DEVICE Final Result Performing Organization Address [facility] de Phone Number CERNER [facility] Department [place] [address] * XR Spine Thoracic 2 Views (11/14/2023 1:51 PM FEED MANAGER) Anatomical Region Laterality Modality Spine N/A Computed Radiogr aphy 11/14/2023 2:19 PM FEED MANAGER Impressions 11/14/2023 2:19 PM FEED MANAGER 1. ??Unchanged combined posterior and anterior instrumented L4-L5 fusion. Electronically signed by: Stefan Gee M.D. Narrative 11/14/2023 2:19 PM FEED MANAGER EXAMINATION: XR SPINE CERVICAL 2 OR 3 [...] by: Stefan Gee M.D. Rosa M Myers GRANITE FABRICATOR IMG XR PROCEDURES F inal Result * XR Spine Lumbar 2 or 3 Views (11/14/2023 1:51 PM FEED MANAGER) Anatomical Region Laterality Modality Spine N/A Computed Radiogr aphy 11/14/2023 2:19 PM FEED MANAGER Impressions 11/14/2023 2:19 PM FEED MANAGER 1. ??Unchanged combined posterior and anterior instrumented L4-L5 fusion. Electronically signed by: Stefan Gee M.D. Narrative 11/14/2023 2:19 PM FEED MANAGER EXAMINATION: XR SPINE CERVICAL 2 OR 3 [...] 2 or 3 Views (11/14/2023 1:50 PM FEED MANAGER) Anatomical Region Laterality Modality Spine N/A Computed Radiogr aphy 11/14/2023 2:19 PM FEED MANAGER Impressions 11/14/2023 2:19 PM FEED MANAGER 1. ??Unchanged combined posterior and anterior instrumented L4-L5 fusion. Electronically signed by: Stefan Gee M.D. Narrative 11/14/2023 2:19 PM FEED MANAGER EXAMINATION: XR SPINE CERVICAL 2 OR 3 [...] by: Stefan Gee M.D. Rosa M Myers GRANITE FABRICATOR IMG XR PROCEDURES F inal Result * POCT glucose (11/14/2023 11:52 AM FEED MANAGER) Glucose, POC 150 70 - 199 mg/dL [facility] Blood 11/14/2023 11:5 2 AM FEED MANAGER 11/14/2023 11:52 AM FEED MANAGER Marcial Vu Jr., MD LAB POCT ORDERABLES - DEVICE Final Result [facility] Department [place] [address] * POCT glucose (11/14/2023 8:04 AM FEED MANAGER) Glucose, POC 144 70 - 199 mg/dL [facility] Blood 11/14/2023 8:04 AM FEED MANAGER 11/14/2023 8:04 AM FEED MANAGER Marcial Vu Jr., MD LAB POCT ORDERABLES - DEVICE Final Result Performing Organization Address [facility] Co de Phone Number [facility] [place] [address] * POCT glucose (11/13/2023 8:11 PM FEED MANAGER) Glucose, POC 150 70 - 199 mg/dL [facility] Blood 11/13/2023 8:11 PM FEED MANAGER 11/13/2023 8:11 PM FEED MANAGER us Marcial Vu Jr., MD LAB POCT ORDERABLES - DEVICE Final Result Performing Organization Address [facility] Co de Phone Number [facility] [place] [address] * eGFR (11/13/2023 8:07 PM FEED MANAGER) eGFR >90 >=60 mL/min/1. 73 m2 [facility] Comment: Interpretive Data Reference Interval Normal [...] last reviewed 2021. Blood 11/13/2023 8:07 PM FEED MANAGER 11/13/2023 8:25 PM FEED MANAGER Francisco Javier Aleman GRANITE FABRICATOR LAB BLOOD ORDERABLES Fi nal Result Performing Organization Address [facility]/ZIP Co de Phone Number [facility] Department [place] [address] * Phosphorus (11/13/2023 8:07 PM FEED MANAGER) Phosphorus, pl 2.7 2.3 - 4.5 mg/dL [facility] Blood 11/13/2023 8:07 PM FEED MANAGER 11/13/2023 8:20 PM FEED MANAGER Francisco Javier Aleman NP LAB BLOOD ORDERABLES Fi nal Result Performing Organization Address [facility] Co de Phone Number [facility] Department [place] [address] * Magnesium (11/13/2023 8:07 PM FEED MANAGER) Magnesium 2.1 1.4 - 2.5 mg/dL [facility] Blood 11/13/2023 8:07 PM FEED MANAGER 11/13/2023 8:20 PM FEED MANAGER Francisco Javier Aleman NP LAB BLOOD ORDERABLES Fi nal Result Performing Organization Address [facility] de Phone Number [facility] Department [place] [address] * (ABNORMAL) CBC without differential (11/13/2023 8:07 PM FEED MANAGER) [facility] WBC 12.6(H) 3.8 - 9.9 K/cumm [facility] Hgb 9.1(L) 13.0 - 17.5 g/dL [facility] Hct 28.0(L) 38.9 - 50.3 % [facility] Plt 188 150 - 400 K/cumm [facility] MPV 11.3 9.1 - 12.3 fL [facility] RBC 3.06(L) 4.30 - 5.80 M/cumm [facility] MCV 91.5 81.3 - 96.4 fL [facility] MCH 29.7 27.1 - 33.3 pg [facility] MCHC 32.5 32.3 - 35.7 g/dL [facility] RDW CV 14.0 11.1 - 14.9 % [facility] RDW SD 45.8 35.7 - 48.1 fL [facility] NRBC abs 0.00 0.00 - 0.01 K/cumm [facility] Blood 11/13/2023 8:07 PM FEED MANAGER 11/13/2023 8:20 PM FEED MANAGER Francisco Javier Aleman NP LAB BLOOD ORDERABLES Fi nal Result Performing Organization Address [facility] Co de Phone Number [facility] Department [place] [address] * (ABNORMAL) Basic metabolic panel (11/13/2023 8:07 PM FEED MANAGER) [facility] Sodium 136 135 - 145 mmol/L [facility] Potassium, pl 4.6 3.3 - 4.9 mmol/L [facility] Chloride 102 97 - 110 mmol/L [facility] CO2 26 22 - 32 mmol/L [facility] Anion gap 8 2 - 15 mmol/L [facility] BUN 27(H) 6 - 25 mg/dL [facility] Creatinine 0.71(L) 0.80 - 1.30 mg/dL [facility] Glucose 138 70 - 199 mg/dL [facility] Comment: Interpretive Data Fasting glucose >/= [...] 2022. Calcium 8.4(L) 8.5 - 10.3 mg/dL [facility] Blood 11/13/2023 8:07 PM FEED MANAGER 11/13/2023 8:20 PM FEED MANAGER us Francisco Javier Aleman NP LAB BLOOD ORDERABLES Fi nal Result [facility] [place] [address] * POCT glucose (11/13/2023 4:58 PM FEED MANAGER) Glucose, POC 188 70 - 199 mg/dL [facility] Blood 11/13/2023 4:58 PM FEED MANAGER 11/13/2023 4:58 PM FEED MANAGER us Marcial Vu Jr., MD LAB POCT ORDERABLES - DEVICE Final Result [facility] [place] [address] * POCT glucose (11/13/2023 12:22 PM FEED MANAGER) Glucose, POC 138 70 - 199 mg/dL [facility] Blood 11/13/2023 12:2 2 PM FEED MANAGER 11/13/2023 12:22 PM FEED MANAGER us Marcial Vu Jr., MD LAB POCT ORDERABLES - DEVICE Final Result Performing Organization Address [facility] Co de Phone Number [facility] [place] [address] * POCT glucose (11/13/2023 7:34 AM FEED MANAGER) Glucose, POC 138 70 - 199 mg/dL [facility] Blood 11/13/2023 7:34 AM FEED MANAGER 11/13/2023 7:34 AM FEED MANAGER us Marcial Vu Jr., MD LAB POCT ORDERABLES - DEVICE Final Result Performing Organization Address [facility] de Phone Number [facility] [place] [address] * (ABNORMAL) POCT glucose (11/12/2023 9:34 PM FEED MANAGER) Glucose, POC 206(H) 70 - 199 mg/dL [facility] Blood 11/12/2023 9:34 PM FEED MANAGER 11/12/2023 9:34 PM FEED MANAGER us Marcial Vu Jr., MD LAB POCT ORDERABLES - DEVICE Final Result Performing Organization Address [facility] [place] [address] * POCT glucose (11/12/2023 5:15 PM FEED MANAGER) Glucose, POC 180 70 - 199 mg/dL [facility] Blood 11/12/2023 5:15 PM FEED MANAGER 11/12/2023 5:15 PM FEED MANAGER us Marcial Vu Jr., MD LAB POCT ORDERABLES - DEVICE Final Result Performing Organization Address City/[facility] Co de Phone Number [facility] [place] [address] * POCT glucose (11/12/2023 11:25 AM FEED MANAGER) Glucose, POC 161 70 - 199 mg/dL [facility] Blood 11/12/2023 11:2 5 AM FEED MANAGER 11/12/2023 11:25 AM FEED MANAGER Marcial Vu Jr., MD LAB POCT ORDERABLES - DEVICE Final Result Performing Organization Address [facility] de Phone Number [facility] [place] [address] * POCT glucose (11/12/2023 7:59 AM FEED MANAGER) Glucose, POC 128 70 - 199 mg/dL [facility] Blood 11/12/2023 7:59 AM FEED MANAGER 11/12/2023 7:59 AM FEED MANAGER Marcial Vu Jr., MD LAB POCT ORDERABLES - DEVICE Final Result Performing Organization Address [facility] Co de Phone Number [facility] Department [place] [address] * POCT glucose (11/11/2023 9:38 PM FEED MANAGER) Glucose, POC 166 70 - 199 mg/dL [facility] Blood 11/11/2023 9:38 PM FEED MANAGER 11/11/2023 9:38 PM FEED MANAGER Marcial Vu Jr., MD LAB POCT ORDERABLES - DEVICE Final Result Performing Organization Address City/[facility] Co de Phone Number [facility] Department of [place] [address] * eGFR (11/11/2023 9:35 PM FEED MANAGER) eGFR >90 >=60 mL/min/1. 73 m2 [...] last reviewed 2021. Blood 11/11/2023 9:35 PM FEED MANAGER 11/11/2023 9:54 PM FEED MANAGER us Vicki Rehman NP LAB BLOOD ORDERABLES F inal Result [facility] Department [place] [address] * Phosphorus (11/11/2023 9:35 PM FEED MANAGER) Phosphorus, pl 2.4 2.3 - 4.5 mg/dL [facility] Blood 11/11/2023 9:35 PM FEED MANAGER 11/11/2023 9:54 PM FEED MANAGER Vicki Rehman NP LAB BLOOD ORDERABLES F inal Result [facility] [place] [address] * Magnesium (11/11/2023 9:35 PM FEED MANAGER) [facility] Magnesium 2.1 1.4 - 2.5 mg/dL [facility] Blood 11/11/2023 9:35 PM FEED MANAGER 11/11/2023 9:54 PM FEED MANAGER Vicki Rehman GRANITE FABRICATOR LAB BLOOD ORDERABLES F inal Result Performing Organization Address [facility] de Phone Number [facility] Department [place] [address] * (ABNORMAL) CBC without differential (11/11/2023 9:35 PM FEED MANAGER) [facility] WBC 9.1 3.8 - 9.9 K/cumm [facility] Hgb 8.8(L) 13.0 - 17.5 g/dL [facility] Hct 25.8(L) 38.9 - 50.3 % [facility] Plt 187 150 - 400 K/cumm [facility] MPV 11.1 9.1 - 12.3 fL [facility] RBC 2.88(L) 4.30 - 5.80 M/cumm [facility] MCV 89.6 81.3 - 96.4 fL [facility] MCH 30.6 27.1 - 33.3 pg [facility] MCHC 34.1 32.3 - 35.7 g/dL [facility] RDW CV 13.8 11.1 - 14.9 % [facility] RDW SD 45.6 35.7 - 48.1 fL [facility] NRBC abs 0.00 0.00 - 0.01 K/cumm [facility] Blood 11/11/2023 9:35 PM FEED MANAGER 11/11/2023 9:54 PM FEED MANAGER Vicki Rehman NP LAB BLOOD ORDERABLES F inal Result [facility] Department [place] [address] * (ABNORMAL) Basic metabolic panel (11/11/2023 9:35 PM FEED MANAGER) [facility] Sodium 135 135 - 145 mmol/L [facility] Potassium, pl 4.6 3.3 - 4.9 mmol/L [facility] Chloride 103 97 - 110 mmol/L [facility] CO2 24 22 - 32 mmol/L [facility] Anion gap 8 2 - 15 mmol/L [facility] BUN 22 6 - 25 mg/dL [facility] Creatinine 0.81 0.80 - 1.30 mg/dL [facility] Glucose 159 70 - 199 mg/dL [facility] Comment: Interpretive Data Fasting glucose >/= [...] 2022. Calcium 8.2(L) 8.5 - 10.3 mg/dL [facility] Blood 11/11/2023 9:35 PM FEED MANAGER 11/11/2023 9:54 PM FEED MANAGER Vicki Rehman NP LAB BLOOD ORDERABLES F inal Result Performing Organization Address [facility]/ZIP Co de Phone Number [facility] Department [place] [address] * POCT glucose (11/11/2023 5:37 PM FEED MANAGER) [facility] Glucose, POC 103 70 - 199 mg/dL [facility] Blood 11/11/2023 5:37 PM FEED MANAGER 11/11/2023 5:37 PM FEED MANAGER Marcial Vu Jr., MD LAB POCT ORDERABLES - DEVICE Final Result Performing Organization Address City/[facility] Co de Phone Number [facility] Department [place] [address] * Transfuse RBC (11/11/2023 5:22 PM FEED MANAGER) Blood Dorie Sofia GRANITE FABRICATOR BLOOD TRANSFUSION ORDER CLEMENTINE Final Result Performing Organization Address [facility] de Phone Number [facility] Department [place] [address] * Transfuse RBC: 1 Units (11/11/2023 5:22 PM FEED MANAGER) Blood Dorie Sofia GRANITE FABRICATOR BLOOD TRANSFUSION ORDER CLEMENTINE Final Result * (ABNORMAL) CBC without differential (11/11/2023 5:08 PM FEED MANAGER) [facility] WBC 10.1(H) 3.8 - 9.9 K/cumm [facility] Hgb 9.7(L) 13.0 - 17.5 g/dL [facility] Hct 29.6(L) 38.9 - 50.3 % [facility] Plt 226 150 - 400 K/cumm [facility] MPV 10.9 9.1 - 12.3 fL [facility] RBC 3.24(L) 4.30 - 5.80 M/cumm [facility] MCV 91.4 81.3 - 96.4 fL [facility] MCH 29.9 27.1 - 33.3 pg [facility] MCHC 32.8 32.3 - 35.7 g/dL [facility] RDW CV 13.9 11.1 - 14.9 % [facility] RDW SD 47.0 35.7 - 48.1 fL [facility] NRBC abs 0.00 0.00 - 0.01 K/cumm [facility] Blood 11/11/2023 5:0 8 PM FEED MANAGER 11/11/2023 5:32 PM FEED MANAGER Narrative [facility] - 11/11/2023 5:41 PM FEED MANAGER 1 hour after transfusion of red blood cells is complete Dorie Sofia GRANITE FABRICATOR LAB BLOOD ORDERABLES Fi nal Result Performing Organization Address [facility] Co de Phone Number [facility] [place] [address] * (ABNORMAL) Vancomycin level trough (11/11/2023 2:44 PM FEED MANAGER) Vancomycin trough 21.1(H) 10.0 - 20.0 mcg/mL [facility] Comment:Reviewed Blood 11/11/2023 2:44 PM FEED MANAGER 11/11/2023 2:50 PM FEED MANAGER Dorie Sofia GRANITE FABRICATOR LAB BLOOD ORDERABLES Fi nal Result Performing Organization Address [facility] Co de Phone Number [facility] Department [place] [address] * POCT glucose (11/11/2023 12:11 PM FEED MANAGER) Glucose, POC 155 70 - 199 mg/dL [facility] Blood 11/11/2023 12:1 1 PM FEED MANAGER 11/11/2023 12:11 PM FEED MANAGER Marcial Vu Jr., MD LAB POCT ORDERABLES - DEVICE Final Result Performing Organization Address [facility] Co de Phone Number [facility] Department [place] [address] * Type and screen (11/11/2023 11:29 AM FEED MANAGER) Jigna, indirect Negative ABO Rh O Positive [facility] Blood 11/11/2023 11:2 9 AM FEED MANAGER 11/11/2023 11:42 AM FEED MANAGER Narrative [facility] - 11/11/2023 12:35 PM FEED MANAGER Has the patient had Daratumumab or Isatuximab in the past 6 months?->Unknown Dorie Sofia NP LAB BLOOD BANK TEST ORD ERABLES Final Result Performing Organization Address [facility] [place] [address] * Prepare RBC: 1 Units (11/11/2023 10:08 AM FEED MANAGER) Pathologist [facility] Product code [id number] Unit Number [id number] [facility] Product Blood Type OPOS [facility] Dispense Status PRESUMED TRANSFUSED [facility] Blood 11/11/2023 10:0 8 AM FEED MANAGER 11/11/2023 10:09 AM FEED MANAGER Narrative [facility] - 11/12/2023 12:45 AM FEED MANAGER Are special requirements needed? (All products are leukoreduced and CMV- safe)- >No Date required:-20231111 LRRBC # of [id number] Reasons:-Active bleeding, Hgb <8 g/dL} Dorie Sofia NP BLOOD BANK PRODUCT ORDE RABLES Final Result Performing Organization Address [facility]/[place] [address] * POCT glucose (11/11/2023 8:33 AM FEED MANAGER) Glucose, POC 141 70 - 199 mg/dL [facility] Blood 11/11/2023 8:33 AM FEED MANAGER 11/11/2023 8:33 AM FEED MANAGER us Marcial Vu Jr., MD LAB POCT ORDERABLES - DEVICE Final Result Performing Organization Address [facility] Co de Phone Number [facility] Department [place] [address] * eGFR (11/10/2023 11:13 PM FEED MANAGER) eGFR >90 >=60 mL/min/1. 73 m2 [facility] Comment: Interpretive Data Reference Interval Normal [...] reviewed 2021. Blood 11/10/2023 11:1 3 PM FEED MANAGER 11/10/2023 11:58 PM FEED MANAGER us Vicki Rehman NP LAB BLOOD ORDERABLES F inal Result Performing Organization Address [facility] Co de Phone Number [facility] [place] [address] * Lidocaine level (11/10/2023 11:13 PM FEED MANAGER) [facility] Lidocaine (Xylocaine) 1.9 1.5 - 5.0 mcg/mL [facility] Blood 11/10/2023 11:1 3 PM FEED MANAGER 11/10/2023 11:55 PM FEED MANAGER Marcial Vu Jr., MD LAB BLOOD [place] [address] * Phosphorus (11/10/2023 11:13 PM FEED MANAGER) [facility] Phosphorus, pl 2.4 2.3 - 4.5 mg/dL [facility] Blood 11/10/2023 11:1 3 PM FEED MANAGER 11/10/2023 11:55 PM FEED MANAGER Vicki Rehman NP LAB BLOOD ORDERABLES F inal Result Performing Organization Address City/[facility] Co de Phone Number [facility] Department [place] [address] * Magnesium (11/10/2023 11:13 PM FEED MANAGER) [facility] Magnesium 2.3 1.4 - 2.5 mg/dL [facility] Blood 11/10/2023 11:1 3 PM FEED MANAGER 11/10/2023 11:55 PM FEED MANAGER Vicki Rehman GRANITE FABRICATOR LAB BLOOD ORDERABLES F inal Result Performing Organization Address City/[facility]/ZIP Co de Phone Number [facility] Department [place] [address] * (ABNORMAL) CBC without differential (11/10/2023 11:13 PM FEED MANAGER) [facility] WBC 9.2 3.8 - 9.9 K/cumm [facility] Hgb 7.5(L) 13.0 - 17.5 g/dL [facility] Hct 22.6(L) 38.9 - 50.3 % [facility] Plt 211 150 - 400 K/cumm [facility] MPV 11.1 9.1 - 12.3 fL [facility] RBC 2.47(L) 4.30 - 5.80 M/cumm [facility] MCV 91.5 81.3 - 96.4 fL [facility] MCH 30.4 27.1 - 33.3 pg [facility] MCHC 33.2 32.3 - 35.7 g/dL [facility] RDW CV 14.0 11.1 - 14.9 % [facility] RDW SD 46.8 35.7 - 48.1 fL [facility] NRBC abs 0.00 0.00 - 0.01 K/cumm [facility] Blood 11/10/2023 11:1 3 PM FEED MANAGER 11/10/2023 11:41 PM FEED MANAGER Vicki Rehman NP LAB BLOOD ORDERABLES F inal Result [facility] Department [place] [address] * (ABNORMAL) Basic metabolic panel (11/10/2023 11:13 PM FEED MANAGER) [facility] Sodium 135 135 - 145 mmol/L [facility] Potassium, pl 4.3 3.3 - 4.9 mmol/L [facility] Chloride 104 97 - 110 mmol/L [facility] CO2 24 22 - 32 mmol/L [facility] Anion gap 7 2 - 15 mmol/L [facility] BUN 22 6 - 25 mg/dL [facility] Creatinine 0.82 0.80 - 1.30 mg/dL [facility] Glucose 118 70 - 199 mg/dL [facility] Comment: Interpretive Data Fasting glucose >/= [...] 2022. Calcium 7.9(L) 8.5 - 10.3 mg/dL [facility] Blood 11/10/2023 11:1 3 PM FEED MANAGER 11/10/2023 11:55 PM FEED MANAGER Result [facility] Vicki Rehman NP LAB BLOOD ORDERABLES F inal Result Performing Organization Address [facility] Co de Phone Number [facility] Department [place] [address] * POCT glucose (11/10/2023 8:50 PM FEED MANAGER) Glucose, POC 170 70 - 199 mg/dL [facility] Blood 11/10/2023 8:50 PM FEED MANAGER 11/10/2023 8:50 PM FEED MANAGER Result [facility] Marcial Vu Jr., MD LAB POCT ORDERABLES - DEVICE Final Result Performing Organization Address [facility]/ZIP Co de Phone Number [facility] Department [place] [address] * (ABNORMAL) POCT glucose (11/10/2023 5:31 PM FEED MANAGER) Glucose, POC 207(H) 70 - 199 mg/dL [facility] Blood 11/10/2023 5:31 PM FEED MANAGER 11/10/2023 5:31 PM FEED MANAGER Marcial Vu Jr., MD LAB POCT ORDERABLES - DEVICE Final Result Performing Organization Address City/[facility]/ZIP Co de Phone Number [facility] [place] [address] * (ABNORMAL) POCT glucose (11/10/2023 11:47 AM FEED MANAGER) Glucose, POC 200(H) 70 - 199 mg/dL [facility] Blood 11/10/2023 11:4 7 AM FEED MANAGER 11/10/2023 11:47 AM FEED MANAGER us Marcial Vu Jr., MD LAB POCT ORDERABLES - DEVICE Final Result Performing Organization Address [facility] Co de Phone Number [facility] [place] [address] * POCT glucose (11/10/2023 8:00 AM FEED MANAGER) Glucose, POC 149 70 - 199 mg/dL [facility] Blood 11/10/2023 8:00 AM FEED MANAGER 11/10/2023 8:00 AM FEED MANAGER us Marcial Vu Jr., MD LAB POCT ORDERABLES - DEVICE Final Result Performing Organization Address City/[facility] Co de Phone Number [facility] Department [place] [address] * Vancomycin level trough Draw trough 30 minutes prior to 4th dose. (11/10/2023 2:59 AM FEED MANAGER) Vancomycin trough 19.0 10.0 - 20.0 mcg/mL [facility] Blood 11/10/2023 2:59 AM FEED MANAGER 11/10/2023 3:15 AM FEED MANAGER Narrative [facility] - 11/10/2023 3:47 AM FEED MANAGER Draw trough 30 minutes prior to 4th dose. us Vicki Nathalie Shero GRANITE FABRICATOR LAB BLOOD ORDERABLES F inal Result [facility] Department [place] [address] * (ABNORMAL) Basic metabolic panel (11/09/2023 11:30 PM FEED MANAGER) Sodium 135 135 - 145 mmol/L [facility] Potassium, pl 4.7 3.3 - 4.9 mmol/L [facility] Chloride 104 97 - 110 mmol/L [facility] CO2 23 22 - 32 mmol/L [facility] Anion gap 8 2 - 15 mmol/L [facility] BUN 20 6 - 25 mg/dL [facility] Creatinine 0.99 0.80 - 1.30 mg/dL [facility] Glucose 138 70 - 199 mg/dL [facility] Comment: Interpretive Data Fasting glucose >/= [...] 2022. Calcium 8.3(L) 8.5 - 10.3 mg/dL [facility] Blood 11/09/2023 11:3 0 PM FEED MANAGER 11/09/2023 11:47 PM FEED MANAGER us Marcial Vu Jr., MD LAB BLOOD ORDERABLE S Final Result Performing Organization Address [facility] Co de Phone Number [facility] Department [place] [address] * eGFR (11/09/2023 11:30 PM FEED MANAGER) eGFR 81 >=60 mL/min/1. 73 m2 [facility] Comment: Interpretive Data Reference Interval Normal [...] reviewed 2021. Blood 11/09/2023 11:3 0 PM FEED MANAGER 11/09/2023 11:57 PM FEED MANAGER us Marcial Vu Jr., MD LAB BLOOD ORDERABLE S Final Result Performing Organization Address City/State/[facility] Co de Phone Number [facility] Department [place] [address] * (ABNORMAL) CBC without differential (11/09/2023 11:30 PM FEED MANAGER) WBC 10.9(H) 3.8 - 9.9 K/cumm [facility] Hgb 8.6(L) 13.0 - 17.5 g/dL [facility] Hct 25.3(L) 38.9 - 50.3 % [facility] Plt 225 150 - 400 K/cumm [facility] MPV 11.1 9.1 - 12.3 fL [facility] RBC 2.78(L) 4.30 - 5.80 M/cumm [facility] MCV 91.0 81.3 - 96.4 fL [facility] MCH 30.9 27.1 - 33.3 pg [facility] MCHC 34.0 32.3 - 35.7 g/dL [facility] RDW CV 14.2 11.1 - 14.9 % [facility] RDW SD 48.0 35.7 - 48.1 fL [facility] NRBC abs 0.00 0.00 - 0.01 K/cumm [facility] Blood 11/09/2023 11:3 0 PM FEED MANAGER 11/09/2023 11:56 PM FEED MANAGER us Amanda Copeland MD LAB BLOOD ORDERABLES F inal Result Performing Organization Address [facility] Co de Phone Number [facility] [place] [address] * Lidocaine level (11/09/2023 11:30 PM FEED MANAGER) Pathologist [facility] Lidocaine (Xylocaine) 2.7 1.5 - 5.0 mcg/mL [facility] Blood 11/09/2023 11:3 0 PM FEED MANAGER 11/09/2023 11:47 PM FEED MANAGER Narrative [facility] - 11/10/2023 12:30 AM FEED MANAGER Draw 24 hours after infusion started. us Vicki Rehman NP LAB BLOOD ORDERABLES F inal Result Performing Organization Address [facility] Co de Phone Number [facility] [place] [address] * eGFR (11/09/2023 8:41 PM FEED MANAGER) [facility] eGFR 81 >=60 mL/min/1. 73 m2 [facility] Comment: Interpretive Data Reference Interval Normal [...] last reviewed 2021. Blood 11/09/2023 8:41 PM FEED MANAGER 11/09/2023 9:08 PM FEED MANAGER Vicki Rehman NP LAB BLOOD ORDERABLES F inal Result Performing Organization Address City/[facility]/ZIP Co de Phone Number [facility] [place], [place] [id number] * Phosphorus (11/09/2023 8:41 PM FEED MANAGER) Phosphorus, pl 3.4 2.3 - 4.5 mg/dL [facility] Blood 11/09/2023 8:41 PM FEED MANAGER 11/09/2023 9:08 PM FEED MANAGER Vicki Rehman NP LAB BLOOD ORDERABLES F inal Result Performing Organization Address City/[facility]/ZIP Co de Phone Number [facility] [place] [address] * Magnesium (11/09/2023 8:41 PM FEED MANAGER) [facility] Magnesium 2.3 1.4 - 2.5 mg/dL [facility] Blood 11/09/2023 8:41 PM FEED MANAGER 11/09/2023 9:08 PM FEED MANAGER Vicki Rehman NP LAB BLOOD ORDERABLES F inal Result Performing Organization Address City/[facility]/ZIP Co de Phone Number [facility] Department [place] [address] * (ABNORMAL) CBC without differential (11/09/2023 8:41 PM FEED MANAGER) [facility] WBC 11.9(H) 3.8 - 9.9 K/cumm [facility] Hgb 8.5(L) 13.0 - 17.5 g/dL [facility] Hct 25.7(L) 38.9 - 50.3 % [facility] Plt 219 150 - 400 K/cumm [facility] MPV 11.1 9.1 - 12.3 fL [facility] RBC 2.82(L) 4.30 - 5.80 M/cumm [facility] MCV 91.1 81.3 - 96.4 fL [facility] MCH 30.1 27.1 - 33.3 pg [facility] MCHC 33.1 32.3 - 35.7 g/dL [facility] RDW CV 14.4 11.1 - 14.9 % [facility] RDW SD 47.6 35.7 - 48.1 fL [facility] NRBC abs 0.00 0.00 - 0.01 K/cumm [facility] Blood 11/09/2023 8:41 PM FEED MANAGER 11/09/2023 9:08 PM FEED MANAGER Vicki Rehman NP LAB BLOOD ORDERABLES F inal Result Performing Organization Address City/[facility]/ZIP Co de Phone Number [facility] Department [place] [address] * (ABNORMAL) Basic metabolic panel (11/09/2023 8:41 PM FEED MANAGER) Sodium 133(L) 135 - 145 mmol/L [facility] Potassium, pl 5.0(H) 3.3 - 4.9 mmol/L [facility] Comment:Hemolyzed; Potassium value may be falsely elevated by as much as 0.3-0.5 mmol/L. Suggest redraw and reanalysis. Chloride 102 97 - 110 mmol/L [facility] CO2 22 22 - 32 mmol/L [facility] Anion gap 9 2 - 15 mmol/L [facility] BUN 20 6 - 25 mg/dL [facility] Creatinine 0.99 0.80 - 1.30 mg/dL [facility] Glucose 189 70 - 199 mg/dL [facility] Comment: Interpretive Data Fasting glucose >/= [...] 2022. Calcium 8.2(L) 8.5 - 10.3 mg/dL [facility] Blood 11/09/2023 8:41 PM FEED MANAGER 11/09/2023 9:08 PM FEED MANAGER us Vicki Rehman NP LAB BLOOD ORDERABLES F inal Result [facility] [place] [address] * POCT glucose (11/09/2023 8:38 PM FEED MANAGER) Glucose, POC 196 70 - 199 mg/dL [facility] Blood 11/09/2023 8:38 PM FEED MANAGER 11/09/2023 8:38 PM FEED MANAGER Marcial Vu Jr., MD LAB POCT ORDERABLES - DEVICE Final Result Performing Organization Address [facility] de Phone Number [facility] [place] [address] * POCT glucose (11/09/2023 4:47 PM FEED MANAGER) Glucose, POC 145 70 - 199 mg/dL [facility] Blood 11/09/2023 4:47 PM FEED MANAGER 11/09/2023 4:47 PM FEED MANAGER us Marcial Vu Jr., MD LAB POCT ORDERABLES - DEVICE Final Result Performing Organization Address [facility] Phone Number [facility] [place] [address] * POCT glucose (11/09/2023 3:18 PM FEED MANAGER) Glucose, POC 161 70 - 199 mg/dL [facility] Blood 11/09/2023 3:18 PM FEED MANAGER 11/09/2023 3:18 PM FEED MANAGER Marcial Vu Jr., MD LAB POCT ORDERABLES - DEVICE Final Result Performing Organization Address [facility] [place] [address] * CT Chest PE (CTA) W Contrast (11/09/2023 12:22 PM FEED MANAGER) Anatomical Region Laterality Modality Body N/A Computed Tomogra phy 11/09/2023 12:4 9 PM FEED MANAGER Impressions 11/09/2023 12:49 PM FEED MANAGER 1. ??Interval decrease in burden of bilateral [...] Micha Barajas M.D. Narrative 11/09/2023 12:49 PM FEED MANAGER EXAMINATION: CT CHEST PE (CTA) W CONTRAST [...] Result * Lidocaine level (11/09/2023 11:43 AM FEED MANAGER) Lidocaine (Xylocaine) 3.4 1.5 - 5.0 mcg/mL [facility] Blood 11/09/2023 11:4 3 AM FEED MANAGER 11/09/2023 12:04 PM FEED MANAGER us Vicki Rehman NP LAB BLOOD ORDERABLES F inal Result Performing Organization Address [facility] Co de Phone Number [facility] Department [place] [address] * POCT glucose (11/09/2023 11:04 AM FEED MANAGER) Glucose, POC 147 70 - 199 mg/dL [facility] Blood 11/09/2023 11:0 4 AM FEED MANAGER 11/09/2023 11:04 AM FEED MANAGER us Marcial Vu Jr., MD LAB POCT ORDERABLES - DEVICE Final Result Performing Organization Address [facility] Co de Phone Number [facility] Department [place] [address] * Critical Care (11/09/2023 9:22 AM FEED MANAGER) Narrative Silver Brown MD - 11/09/2023 9:22 AM FEED MANAGER Vicki Rehman NP ? 11/09/2023 ??3:00 PM Critical Care Performed by: Vicki Rehman NP Authorized by: Vicik Rehman NP ?? CRITICAL CARE: ??Team: ??SICU [...] plan with the patient's team and other medical/banking consultant staff. This time was in addition [...] Insert Vena Cava Filter (11/09/2023 8:47 AM FEED MANAGER) Anatomical Region Laterality Modality Body N/A X-Ray Angiograph y 11/09/2023 10:4 9 AM FEED MANAGER Impressions 11/09/2023 11:50 AM FEED MANAGER Successful placement of an IVC ??filter PLAN: A retrievable filter has been placed. ??If clinically indicated, the filter may be retrieved when the patient is appropriately anticoagulated. ??In order to schedule filter removal please call [phone]. ??This filter can also be left in place as a permanent IVC filter if appropriate. Dictated by: Honorio Hannon M.D. The radiology attending physician has personally reviewed this study, and had reviewed and/or edited this written report and agrees with it. Electronically signed by: Nahun Albarado M.D. Narrative 11/09/2023 11:50 AM FEED MANAGER EXAMINATION: ??INFERIOR VENA CAVAGRAM AND INFERIOR VENA [...] was obtained. Prior to beginning the procedure, Sumner Protocol was performed to confirm the patient's [...] was obtained. Prior to beginning the procedure, Sumner Protocol was performed to confirm the patient's [...] order to schedule filter removal please call [phone]. This filter can also be left in place as a permanent IVC filter if appropriate. Dictated by: Honorio Hannon M.D. The radiology attending physician has personally reviewed this study, and had reviewed and/or edited this written report and agrees with it. Electronically signed by: Nahun Albarado M.D. Vicki Rehman GRANITE FABRICATOR IMG IR PROCEDURES Fide l Result * POCT glucose (11/09/2023 7:07 AM FEED MANAGER) Glucose, POC 137 70 - 199 mg/dL [facility] Blood 11/09/2023 7:07 AM FEED MANAGER 11/09/2023 7:07 AM FEED MANAGER Marcial Vu Jr., MD LAB POCT ORDERABLES - DEVICE Final Result [facility] [place] [address] * POCT glucose (11/09/2023 3:24 AM FEED MANAGER) Glucose, POC 160 70 - 199 mg/dL [facility] Blood 11/09/2023 3:24 AM FEED MANAGER 11/09/2023 3:24 AM FEED MANAGER Marcial Vu Jr., MD LAB POCT ORDERABLES - DEVICE Final Result Performing Organization Address [facility] Co de Phone Number [facility] One [facility] [place] [address] * POCT glucose (11/08/2023 11:49 PM FEED MANAGER) Pathologist [facility] Glucose, POC 150 70 - 199 mg/dL [facility] Blood 11/08/2023 11:4 9 PM FEED MANAGER 11/08/2023 11:49 PM FEED MANAGER Marcial Vu Jr., MD LAB POCT ORDERABLES - DEVICE Final Result Performing Organization Address [facility] de Phone Number [facility] Department [place] [address] * eGFR (11/08/2023 9:01 PM FEED MANAGER) [facility] eGFR >90 >=60 mL/min/1. 73 m2 [facility] Comment: Interpretive Data Reference Interval Normal [...] last reviewed 2021. Blood 11/08/2023 9:01 PM FEED MANAGER 11/08/2023 9:18 PM FEED MANAGER Vicki Rehman GRANITE FABRICATOR LAB BLOOD ORDERABLES F inal Result Performing Organization Address City/[facility] Co de Phone Number [facility] [place] [address] * Phosphorus (11/08/2023 9:01 PM FEED MANAGER) Phosphorus, pl 3.4 2.3 - 4.5 mg/dL [facility] Blood 11/08/2023 9:01 PM FEED MANAGER 11/08/2023 9:18 PM FEED MANAGER Vicki Rehman GRANITE FABRICATOR LAB BLOOD ORDERABLES F inal Result Performing Organization Address [facility] de Phone Number [facility] [place] [address] * Magnesium (11/08/2023 9:01 PM FEED MANAGER) Magnesium 2.3 1.4 - 2.5 mg/dL [facility] Blood 11/08/2023 9:01 PM FEED MANAGER 11/08/2023 9:18 PM FEED MANAGER Vicki Rehman GRANITE FABRICATOR LAB BLOOD ORDERABLES F inal Result Performing Organization Address [facility] [place] [address] * (ABNORMAL) CBC without differential (11/08/2023 9:01 PM FEED MANAGER) WBC 14.0(H) 3.8 - 9.9 K/cumm [facility] Hgb 11.0(L) 13.0 - 17.5 g/dL [facility] Hct 33.3(L) 38.9 - 50.3 % [facility] Plt 292 150 - 400 K/cumm [facility] MPV 11.1 9.1 - 12.3 fL [facility] RBC 3.62(L) 4.30 - 5.80 M/cumm [facility] MCV 92.0 81.3 - 96.4 fL [facility] MCH 30.4 27.1 - 33.3 pg [facility] MCHC 33.0 32.3 - 35.7 g/dL [facility] RDW CV 14.4 11.1 - 14.9 % [facility] RDW SD 49.0(H) 35.7 - 48.1 fL [facility] NRBC abs 0.00 0.00 - 0.01 K/cumm [facility] Blood 11/08/2023 9:01 PM FEED MANAGER 11/08/2023 9:17 PM FEED MANAGER Vicki Rehman NP LAB BLOOD ORDERABLES F inal Result [facility] Department [place] [address] * Basic metabolic panel (11/08/2023 9:01 PM FEED MANAGER) Sodium 136 135 - 145 mmol/L [facility] Potassium, pl 4.4 3.3 - 4.9 mmol/L [facility] Chloride 102 97 - 110 mmol/L [facility] CO2 22 22 - 32 mmol/L [facility] Anion gap 12 2 - 15 mmol/L [facility] BUN 18 6 - 25 mg/dL [facility] Creatinine 0.83 0.80 - 1.30 mg/dL [facility] Glucose 192 70 - 199 mg/dL [facility] Comment: Interpretive Data Fasting glucose >/= [...] 2022. Calcium 8.5 8.5 - 10.3 mg/dL [facility] Blood 11/08/2023 9:01 PM FEED MANAGER 11/08/2023 9:18 PM FEED MANAGER us Vicki Rehman NP LAB BLOOD ORDERABLES F inal Result Performing Organization Address City/[facility]/ZIP Co de Phone Number [facility] Department [place] [address] * POCT glucose (11/08/2023 7:10 PM FEED MANAGER) [facility] Signature Glucose, POC 169 70 - 199 mg/dL [facility] Blood 11/08/2023 7:10 PM FEED MANAGER 11/08/2023 7:10 PM FEED MANAGER Marcial Vu Jr., MD LAB POCT ORDERABLES - DEVICE Final Result Performing Organization Address City/[facility]/ZIP Co de Phone Number [facility] Department [place] [address] * Critical Care (11/08/2023 6:15 PM FEED MANAGER) Narrative Dmitry Neal MD - 11/08/2023 6:15 PM FEED MANAGER Nvuia Cantu NP ? 11/09/2023 ??5:16 AM Critical [...] plan with the ICU team and other medical/banking consultant staff, making frequent assessments and decisions [...] Lower Extremity Bilateral Complete (11/08/2023 3:07 PM FEED MANAGER) Anatomical Region Laterality Modality Vascular Bilateral Ultrasound 11/08/2023 2:22 PM FEED MANAGER Narrative 11/09/2023 1:26 AM FEED MANAGER [facility] - Department of Vascular Surgery, Vascular Laboratory [address] [place] [address] Lower Extremity Venous Ultrasound Report Patient Name: HIRA EVANS WILLIAM : 1950 (73y 4m) Study Date: 11/08/2023 2:22:46 PM Gender: M Tech: PA Location: [id number] Ref Provider: VICKI REHMAN ?Quality: Adequate Order [...] INDICATIONS: recent bilateral PE - FINDINGS: Performing Real Estate Associate Attorney: Nola Walker RVT, RDMS. Bilateral: Venous Doppler [...] Electronically Signed By: Shayan Jameson MD [facility] 2023-11-09 01:25:55 FEED MANAGER Procedure Note Shayan Jameson MD - 11/09/2023 [facility] - Department of Vascular Surgery,Vascular Laboratory [address] [place] [address] Lower Extremity Venous Ultrasound Report Patient Name: HIRA EVANS WILLIAM : 1950 (73y 4m) Study Date: 11/08/2023 2:22:46 PM Gender: M Tech: PA Location: [id number] Ref Provider: VICKI REHMAN Quality: Adequate Order Provider: VICKI REHMAN PROCEDURES: Vascular Report: Venous Duplex imaging was performed bilaterally in the lower extremities.The common femoral, femoral, popliteal, posterior tibial, peroneal veins wereevaluated for patency, spontaneity and phasicity with Doppler, compression and augmentationmaneuvers. Great saphenous vein proximal at the junction was evaluated with compressionmaneuvers. INDICATIONS: recent bilateral PE - FINDINGS: Performing Real Estate Associate Attorney: Nola Walker RVT, RDMS. Bilateral: Venous Doppler [...] Electronically Signed By: Shayan Jameson MD [facility] 2023-11-09 01:25:55 FEED MANAGER Vicki Rehman NP IMG US PROCEDURES Fide l Result * POCT glucose (11/08/2023 3:05 PM FEED MANAGER) Glucose, POC 171 70 - 199 mg/dL [facility] Blood 11/08/2023 3:05 PM FEED MANAGER 11/08/2023 3:05 PM FEED MANAGER Marcial Vu Jr., MD LAB POCT ORDERABLES - DEVICE Final Result [facility] Department [place] [address] * Critical Care (11/08/2023 12:12 PM FEED MANAGER) Narrative Silver Brown MD - 11/08/2023 12:12 PM FEED MANAGER Vicki Rehman NP ? 11/08/2023 ??5:33 PM [...] plan with the ICU team and other medical/banking consultant staff, making frequent assessments and decisions [...] Final Result * eGFR (11/08/2023 11:51 AM FEED MANAGER) [facility] eGFR >90 >=60 mL/min/1. 73 m2 [facility] Comment: Interpretive Data Reference Interval [...] reviewed 2021. Blood 11/08/2023 11:5 1 AM FEED MANAGER 11/08/2023 12:03 PM FEED MANAGER Vicki Rehman NP LAB BLOOD ORDERABLES F inal Result Performing Organization Address City/[facility]/ZIP Co de Phone Number [facility] Department [place] [address] * (ABNORMAL) CBC without differential (11/08/2023 11:51 AM FEED MANAGER) WBC 10.4(H) 3.8 - 9.9 K/cumm [facility] Hgb 9.2(L) 13.0 - 17.5 g/dL [facility] Hct 27.4(L) 38.9 - 50.3 % [facility] Plt 255 150 - 400 K/cumm [facility] MPV 11.0 9.1 - 12.3 fL [facility] RBC 3.03(L) 4.30 - 5.80 M/cumm [facility] MCV 90.4 81.3 - 96.4 fL [facility] MCH 30.4 27.1 - 33.3 pg [facility] MCHC 33.6 32.3 - 35.7 g/dL [facility] RDW CV 14.4 11.1 - 14.9 % [facility] RDW SD 47.6 35.7 - 48.1 fL [facility] NRBC abs 0.00 0.00 - 0.01 K/cumm [facility] Blood 11/08/2023 11:5 1 AM FEED MANAGER 11/08/2023 12:18 PM FEED MANAGER Vicki Rehman NP LAB BLOOD ORDERABLES F inal Result Performing Organization Address City/[facility]/ZIP Co de Phone Number [facility] Department [place] [address] * Protime-INR (11/08/2023 11:51 AM FEED MANAGER) Pathologist [facility] PT 12.8 10.3 - 13.7 sec [facility] INR 1.12 0.90 - 1.20 [facility] Comment: Interpretive data Oral anticoagulant therapeutic ranges: Venous thromboembolism prophylaxis or treatment: 2.0-3.0 CARDIOLOGY Standard range: 2.0-3.0 High-intensity range: 2.5-3.5 Refer to indication-specific guidelines for appropriate target ranges for prosthetic heart valve replacement. Current interpretive data was last revised on 2019. Blood 11/08/2023 11:5 1 AM FEED MANAGER 11/08/2023 12:08 PM FEED MANAGER Vicki Rehman NP LAB BLOOD ORDERABLES F inal Result Performing Organization Address City/[facility]/ZIP Co de Phone Number [facility] Department [place] [address] * Phosphorus (11/08/2023 11:51 AM FEED MANAGER) [facility] Phosphorus, pl 4.1 2.3 - 4.5 mg/dL [facility] Blood 11/08/2023 11:5 1 AM FEED MANAGER 11/08/2023 12:03 PM FEED MANAGER Vicki Rehman NP LAB BLOOD ORDERABLES F inal Result [facility] [place] [address] * Magnesium (11/08/2023 11:51 AM FEED MANAGER) [facility] Magnesium 1.8 1.4 - 2.5 mg/dL [facility] Blood 11/08/2023 11:5 1 AM FEED MANAGER 11/08/2023 12:03 PM FEED MANAGER Vicki Rehman NP LAB BLOOD ORDERABLES F inal Result Performing Organization Address City/[facility]/ZIP Co de Phone Number [facility] Department [place] [address] * Calcium, ionized (11/08/2023 11:51 AM FEED MANAGER) Pathologist [facility] Calcium, Ionized 4.58 4.50 - 5.10 mg/dL [facility] Blood 11/08/2023 11:5 1 AM FEED MANAGER 11/08/2023 12:03 PM FEED MANAGER Vickira Nathalie Rehman LAB BLOOD ORDERABLES F inal Result Performing Organization Address [facility] de Phone Number [facility] Department [place] [address] * (ABNORMAL) Basic metabolic panel (11/08/2023 11:51 AM FEED MANAGER) Pathologist [facility] Sodium 138 135 - 145 mmol/L [facility] Potassium, pl 4.4 3.3 - 4.9 mmol/L [facility] Chloride 108 97 - 110 mmol/L [facility] CO2 22 22 - 32 mmol/L [facility] Anion gap 8 2 - 15 mmol/L [facility] BUN 15 6 - 25 mg/dL [facility] Creatinine 0.82 0.80 - 1.30 mg/dL [facility] Glucose 181 70 - 199 mg/dL [facility] Comment: Interpretive Data Fasting glucose >/= [...] 2022. Calcium 8.0(L) 8.5 - 10.3 mg/dL [facility] Blood 11/08/2023 11:5 1 AM FEED MANAGER 11/08/2023 12:03 PM FEED MANAGER Vicki Rehman NP LAB BLOOD ORDERABLES F inal Result Performing Organization Address [facility] Co de Phone Number [facility] [place] [address] * POCT glucose (11/08/2023 11:41 AM FEED MANAGER) Glucose, POC 173 70 - 199 mg/dL [facility] Blood 11/08/2023 11:4 1 AM FEED MANAGER 11/08/2023 11:41 AM FEED MANAGER Marcial Vu MD LAB POCT ORDERABLES - DEVICE Final Result Performing Organization Address City/[facility] Co de Phone Number [facility] Department [place] [address] * Transfuse plasma (11/08/2023 9:32 AM FEED MANAGER) Blood Hood Kim MD BLOOD TRANSFUSION [facility] Final Result Performing Organization Address [facility] Co de Phone Number [facility] Department [place] [address] * (ABNORMAL) POC Blood Gas and Chemistries, Arterial - (11/08/2023 8:22 AM FEED MANAGER) pH, Art POC 7.38 7.35 - 7.45 [facility] pCO2, Art POC 38 35 - 45 mmHg [facility] pO2, Art POC 153(H) 83 - 108 mmHg [facility] Na, POC 135 135 - 145 mmol/L [facility] K POC 4.5 3.3 - 4.9 mmol/L [facility] Comment: Interpretive Data This method is not able to assess for hemolysis, which may falsely increase potassium concentrations. If further testing is needed to evaluate this result, consider in-laboratory plasma potassium. Current Interpretive Data was last revised on 2022. Cl, POC 109 97 - 110 mmol/L [facility] Ionized Ca, POC 5.14(H) 4.50 - 5.10 mg/dL [facility] Glucose, POC 187 70 - 199 mg/dL [facility] Lactate, POC 0.8 0.7 - 2.2 mmol/L [facility] SO2 (mindy) arterial 99(H) 90 - 95 % [facility] Base excess, POC -2.3 mmol/L [facility] HCO3, Art POC 22 20 - 30 mmol/L [facility] Hct, POC 32.0(L) 41.4 - 51.6 % [facility] O2 Sat, Art POC (Calc) 99 % [facility] Total Hb, POC 10.6(L) 13.8 - 17.2 g/dL [facility] Blood 11/08/2023 8:22 AM FEED MANAGER 11/08/2023 8:22 AM FEED MANAGER Julia Ramos MD LAB POCT ORDERABLES - DE VICE Final Result Performing Organization Address City/[facility]/ZIP Co de Phone Number [facility] [place] [address] * Transfuse RBC (11/08/2023 7:37 AM FEED MANAGER) Blood us Edmond Barker MD BLOOD TRANSFUSION ORD ERABLES Final Result [facility] Department [place] [address] * (ABNORMAL) POC Blood Gas and Chemistries, Arterial - (11/08/2023 7:05 AM FEED MANAGER) pH, Art POC 7.42 7.35 - 7.45 [facility] pCO2, Art POC 33(L) 35 - 45 mmHg [facility] pO2, Art POC 156(H) 83 - 108 mmHg [facility] Na, POC 135 135 - 145 mmol/L [facility] K POC 3.8 3.3 - 4.9 mmol/L [facility] Comment: Interpretive Data This method is not able to assess for hemolysis, which may falsely increase potassium concentrations. If further testing is needed to evaluate this result, consider in-laboratory plasma potassium. Current Interpretive Data was last revised on 2022. Cl, POC 109 97 - 110 mmol/L [facility] Ionized Ca, POC 4.66 4.50 - 5.10 mg/dL [facility] Glucose, POC 146 70 - 199 mg/dL [facility] Lactate, POC 0.6(L) 0.7 - 2.2 mmol/L [facility] SO2 (mindy) arterial 99(H) 90 - 95 % [facility] Base excess, POC -2.6 mmol/L [facility] HCO3, Art POC 21 20 - 30 mmol/L [facility] Hct, POC 29.0(L) 41.4 - 51.6 % [facility] O2 Sat, Art POC (Calc) 99 % [facility] Total Hb, POC 9.8(L) 13.8 - 17.2 g/dL [facility] Blood 11/08/2023 7:05 AM FEED MANAGER 11/08/2023 7:05 AM FEED MANAGER Julia Ramos MD LAB POCT ORDERABLES - DE VICE Final Result [facility] [place] [address] * (ABNORMAL) POC Blood Gas and Chemistries, Arterial - (11/08/2023 6:00 AM FEED MANAGER) pH, Art POC 7.39 7.35 - 7.45 [facility] pCO2, Art POC 40 35 - 45 mmHg [facility] pO2, Art POC 158(H) 83 - 108 mmHg [facility] Na, POC 136 135 - 145 mmol/L [facility] K POC 3.7 3.3 - 4.9 mmol/L [facility] Comment: Interpretive Data This method is not able to assess for hemolysis, which may falsely increase potassium concentrations. If further testing is needed to evaluate this result, consider in-laboratory plasma potassium. Current Interpretive Data was last revised on 2022. Cl, POC 109 97 - 110 mmol/L [facility] Ionized Ca, POC 4.53 4.50 - 5.10 mg/dL [facility] Glucose, POC 131 70 - 199 mg/dL [facility] Lactate, POC 0.7 0.7 - 2.2 mmol/L [facility] SO2 (mindy) arterial 100(H) 90 - 95 % [facility] Base excess, POC -0.7 mmol/L [facility] HCO3, Art POC 24 20 - 30 mmol/L [facility] Hct, POC 29.0(L) 41.4 - 51.6 % [facility] O2 Sat, Art POC (Calc) 99 % [facility] Total Hb, POC 9.6(L) 13.8 - 17.2 g/dL [facility] Blood 11/08/2023 6:00 AM FEED MANAGER 11/08/2023 6:00 AM FEED MANAGER Julia Ramos MD LAB POCT ORDERABLES - DE VICE Final Result Performing Organization Address [facility]/ZIP Co de Phone Number [facility] [place] [address] * Transfuse RBC (11/08/2023 5:59 AM FEED MANAGER) Blood us Edmond Barker MD BLOOD TRANSFUSION ORD ERABLES Final Result [facility] [place] [address] * Transfuse RBC (11/08/2023 4:53 AM FEED MANAGER) Blood Edmond Barker MD BLOOD TRANSFUSION ORD ERABLES Final Result [facility] Department [place] [address] * (ABNORMAL) POC Blood Gas and Chemistries, Arterial - (11/08/2023 4:18 AM FEED MANAGER) pH, Art POC 7.45 7.35 - 7.45 [facility] pCO2, Art POC 35 35 - 45 mmHg [facility] pO2, Art POC 322(H) 83 - 108 mmHg [facility] Na, POC 136 135 - 145 mmol/L [facility] K POC 3.5 3.3 - 4.9 mmol/L [facility] Comment: Interpretive Data This method is not able to assess for hemolysis, which may falsely increase potassium concentrations. If further testing is needed to evaluate this result, consider in-laboratory plasma potassium. Current Interpretive Data was last revised on 2022. Cl, POC 108 97 - 110 mmol/L [facility] Ionized Ca, POC 4.62 4.50 - 5.10 mg/dL [facility] Glucose, POC 123 70 - 199 mg/dL [facility] Lactate, POC 0.7 0.7 - 2.2 mmol/L [facility] SO2 (mindy) arterial 99(H) 90 - 95 % [facility] Base excess, POC 0.4 mmol/L [facility] HCO3, Art POC 24 20 - 30 mmol/L [facility] Hct, POC 26.0(L) 41.4 - 51.6 % [facility] O2 Sat, Art POC (Calc) 100 % [facility] Total Hb, POC 8.6(L) 13.8 - 17.2 g/dL [facility] Blood 11/08/2023 4:18 AM FEED MANAGER 11/08/2023 4:18 AM FEED MANAGER us Julia Ramos MD LAB POCT ORDERABLES - DE VICE Final Result [facility] Department [place] [address] * Prepare plasma: 4 Units (11/08/2023 2:28 AM FEED MANAGER) Product code E9765R20 Unit Number [id number]- N [facility] Product Blood Type OPOS [facility] Dispense Status RETURNED [facility] Product code [id number] [facility] Unit Number [id number]- C [facility] Product Blood Type OPOS [facility] Dispense Status RETURNED [facility] Product code X1152D16 [facility] Unit Number [id number]- O [facility] Product Blood Type OPOS [facility] Dispense Status RETURNED [facility] Product code [id number] [facility] Unit Number [id number]- U [facility] Product Blood Type OPOS [facility] Dispense Status PRESUMED TRANSFUSED [facility] Blood (Blood, Venous) 11/08/2023 2:28 AM FEED MANAGER 11/08/2023 2:29 AM FEED MANAGER Narrative [facility] - 11/09/2023 12:41 PM FEED MANAGER Date required: FFP # of Units:-4-Units Reasons:-Immediate need for surgical intervention Tobias Rivas MD BLOOD BANK PRODUCT ORDERA BLES Final Result [facility] Department [place] [address] * Prepare RBC: 4 Units (11/08/2023 2:28 AM FEED MANAGER) Product code [id number] Unit Number [id number]- P [facility] Product Blood Type OPOS [facility] Dispense Status PRESUMED TRANSFUSED [facility] Product code [id number] [facility] Unit Number [id number] 3 [facility] Product Blood Type OPOS [facility] Dispense Status RETURNED [facility] Product code [id number] [facility] Unit Number [id number]- S [facility] Product Blood Type OPOS [facility] Dispense Status PRESUMED TRANSFUSED [facility] Product code [id number] [facility] Unit Number [id number]- A [facility] Product Blood Type OPOS [facility] Dispense Status PRESUMED TRANSFUSED [facility] Blood 11/08/2023 2:28 AM FEED MANAGER 11/08/2023 2:29 AM FEED MANAGER Narrative [facility] - 11/09/2023 12:43 PM FEED MANAGER Are special requirements needed? (All products are leukoreduced and CMV- safe)- >No Date required:-[id number] LRRBC # of [id number] Reasons:-Intra-op transfusion} Tobias Rivas MD BLOOD BANK PRODUCT ORDERA BLES Final Result [facility] Department [place] [address] * Critical Care (11/08/2023 2:18 AM FEED MANAGER) Narrative Eula Wagoner MD - 11/08/2023 2:18 AM FEED MANAGER Eula Wagoner MD ? 11/08/2023 ??2:19 AM [...] Lumbar Spine WO Contrast (11/08/2023 2:09 AM FEED MANAGER) Anatomical Region Laterality Modality Spine N/A Computed Tomogra phy 11/08/2023 2:35 AM FEED MANAGER Impressions 11/08/2023 1:21 PM FEED MANAGER 1. ??Degenerative changes of the cervical and [...] Zac Mcgarry M.D. Narrative 11/08/2023 1:21 PM FEED MANAGER EXAMINATION: 1. CT of the cervical spine [...] 2 or 3 Views (11/08/2023 1:14 AM FEED MANAGER) Anatomical Region Laterality Modality Spine N/A Computed Radiogr aphy 11/08/2023 1:56 AM FEED MANAGER Impressions 11/08/2023 10:20 AM FEED MANAGER FINDINGS/IMPRESSION: Thoracic spine: 3 views of the [...] Kendrick House M.D. Narrative 11/08/2023 10:20 AM FEED MANAGER EXAMINATION: ??XR SPINE THORACIC 3 VIEWS, XR [...] Spine Thoracic 3 Vw (11/08/2023 1:13 AM FEED MANAGER) Anatomical Region Laterality Modality Spine N/A Computed Radiogr aphy 11/08/2023 1:56 AM FEED MANAGER Impressions 11/08/2023 10:20 AM FEED MANAGER FINDINGS/IMPRESSION: Thoracic spine: 3 views of the [...] Kendrick House M.D. Narrative 11/08/2023 10:20 AM FEED MANAGER EXAMINATION: ??XR SPINE THORACIC 3 VIEWS, XR [...] Total Complete WO Contrast (11/08/2023 12:44 AM FEED MANAGER) Anatomical Region Laterality Modality Spine N/A Magnetic Resonan ce 11/08/2023 11:5 3 AM FEED MANAGER Impressions 11/08/2023 4:26 PM FEED MANAGER 1. ??Postsurgical changes of L4-L5 discectomy, interbody [...] Zac Mcgarry M.D. Narrative 11/08/2023 4:26 PM FEED MANAGER EXAMINATION: 1. Magnetic resonance imaging (MRI) of [...] Final Result * eGFR (11/07/2023 11:01 PM FEED MANAGER) eGFR 82 >=60 mL/min/1. 73 m2 [facility] Comment: Interpretive Data Reference Interval Normal [...] reviewed 2021. Blood 11/07/2023 11:0 1 PM FEED MANAGER 11/07/2023 11:12 PM FEED MANAGER Deisy Ayala MD LAB BLOOD ORDERABLES Fide rick Result [facility] Department [place] [address] * Type and screen (11/07/2023 11:01 PM FEED MANAGER) Jigna, indirect Negative ABO Rh O Positive [facility] Blood 11/07/2023 11:0 1 PM FEED MANAGER 11/07/2023 11:46 PM FEED MANAGER Narrative [facility] - 11/08/2023 12:42 AM FEED MANAGER Has the patient had Daratumumab or Isatuximab in the past 6 months?->Unknown Result [facility] Deisy Ayala MD LAB BLOOD BANK TEST ORDER CLEMENTINE Final Result Performing Organization Address [facility] [place] [address] * aPTT (11/07/2023 11:01 PM FEED MANAGER) aPTT 32 28 - 38 sec [facility] Comment: Interpretive Data Heparin therapeutic range: 66.0 - 100.0 seconds. Range based on correlation with therapeutic heparin activity range of 0.3 - 0.7 Units/mL. Current interpretive data was last revised on 2023. Blood 11/07/2023 11:0 1 PM FEED MANAGER 11/08/2023 12:07 AM FEED MANAGER Deisy Ayala MD LAB BLOOD ORDERABLES Fide l Result Performing Organization Address [facility] de Phone Number [facility] [place] [address] * Protime-INR (11/07/2023 11:01 PM FEED MANAGER) PT 12.6 10.3 - 13.7 sec [facility] INR 1.11 0.90 - 1.20 [facility] Comment: Interpretive data Oral anticoagulant therapeutic ranges: Venous thromboembolism prophylaxis or treatment: 2.0-3.0 CARDIOLOGY Standard range: 2.0-3.0 High-intensity range: 2.5-3.5 Refer to indication-specific guidelines for appropriate target ranges for prosthetic heart valve replacement. Current interpretive data was last revised on 2019. Blood 11/07/2023 11:0 1 PM FEED MANAGER 11/08/2023 12:07 AM FEED MANAGER Result [facility] Deisy Ayala MD LAB BLOOD ORDERABLES Fide l Result Performing Organization Address [facility] de Phone Number [facility] Department [place] [address] * Basic metabolic panel (11/07/2023 11:01 PM FEED MANAGER) Pathologist [facility] Sodium 141 135 - 145 mmol/L [facility] Potassium, pl 4.2 3.3 - 4.9 mmol/L [facility] Chloride 104 97 - 110 mmol/L [facility] CO2 28 22 - 32 mmol/L [facility] Anion gap 9 2 - 15 mmol/L [facility] BUN 14 6 - 25 mg/dL [facility] Creatinine 0.98 0.80 - 1.30 mg/dL [facility] Glucose 142 70 - 199 mg/dL [facility] Comment: Interpretive Data Fasting glucose >/= [...] Calcium 8.6 8.5 - 10.3 mg/dL [facility] Blood 11/07/2023 11:0 1 PM FEED MANAGER 11/07/2023 11:12 PM FEED MANAGER Deisy Aayla MD LAB BLOOD ORDERABLES Fide rick Result [facility] Department [place] [address] * (ABNORMAL) CBC without differential (11/07/2023 11:01 PM FEED MANAGER) [facility] WBC 12.0(H) 3.8 - 9.9 K/cumm [facility] Hgb 9.5(L) 13.0 - 17.5 g/dL [facility] Hct 29.0(L) 38.9 - 50.3 % [facility] Plt 343 150 - 400 K/cumm [facility] MPV 10.9 9.1 - 12.3 fL [facility] RBC 3.08(L) 4.30 - 5.80 M/cumm [facility] MCV 94.2 81.3 - 96.4 fL [facility] MCH 30.8 27.1 - 33.3 pg [facility] MCHC 32.8 32.3 - 35.7 g/dL [facility] RDW CV 13.7 11.1 - 14.9 % [facility] RDW SD 46.8 35.7 - 48.1 fL [facility] NRBC abs 0.00 0.00 - 0.01 K/cumm [facility] Blood 11/07/2023 11:0 1 PM FEED MANAGER 11/07/2023 11:12 PM FEED MANAGER Deisy Ayala MD LAB BLOOD ORDERABLES Fide rick Result Performing Organization Address [facility] Co de Phone Number [facility] Department [place] [address] * CT CRITICAL CARE ILL/INJURED PATIENT INIT 30-74 MIN (11/07/2023 10:43 PM FEED MANAGER) Narrative Temo Hampton MD - 11/07/2023 10:43 PM FEED MANAGER Temo Hampton MD ? 11/07/2023 10:44 PM [...] 11/08/23 at 1215 Given 11/16/2023 11:40 AM FEED MANAGER 1,000 mg Given 11/16/2023 5:14 AM FEED MANAGER 1,000 mg Given 11/15/2023 11:11 PM FEED MANAGER 1,000 mg acyclovir (ZOVIRAX) tablet 400 mg 400 mg, oral, 2 times daily, First dose on Sun11/09/23 at 1030, Indications: Prophylaxis, MedicalIndications:Prophylaxis, Medical Given 11/16/2023 8:30 AM FEED MANAGER 400 mg Given 11/15/2023 9:11 PM FEED MANAGER 400 mg Given 11/15/2023 8:36 AM FEED MANAGER 400 mg bisacodyL (DULCOLAX) suppository 10 mg 10 mg, rectal, Daily, First dose on Sun11/10/23 at 1115, Indications: constipationIndications:constipation Given 11/14/2023 8:17 AM FEED MANAGER 10 mg Given 11/10/2023 4:36 PM FEED MANAGER 10 mg cetirizine (ZyrTEC) tablet 10 mg 10 mg, oral, Daily, First dose on Sun11/08/23 at 1500 Given 11/16/2023 8:29 AM FEED MANAGER 10 mg Given 11/15/2023 8:36 AM FEED MANAGER 10 mg Given 11/14/2023 8:18 AM FEED MANAGER 10 mg cholecalciferol (VITAMIN D-3) capsule 5,000 Units 5,000 Units, oral, Daily, First dose on Sun11/08/23 at 1500, Each capsule contains 5,000 units (125 mcg) of cholecalciferol, Given 11/16/2023 11:40 AM FEED MANAGER 5,000 Units Given 11/15/2023 8:36 AM FEED MANAGER 5,000 Units Given 11/14/2023 8:18 AM FEED MANAGER 5,000 Units cyclobenzaprine (FLEXERIL) tablet 5 mg 5 mg, oral, 3 times daily, First dose (after last modification) on Sun11/12/23 at 1600 Given 11/16/2023 8:30 AM FEED MANAGER 5 m g Given 11/15/2023 9:11 PM FEED MANAGER 5 mg Given 11/15/2023 3:04 PM FEED MANAGER 5 mg dextrose (D10W) 10% bolus 250 [...] tablet/capsule., Indications: hypertensionIndications:hypertension Given 11/16/2023 8:29 AM FEED MANAGER 240 mg Given 11/15/2023 9:11 PM FEED MANAGER 240 mg Given 11/15/2023 8:36 AM FEED MANAGER 240 mg gabapentin (NEURONTIN) tablet 600 mg 600 mg, oral, 3 times daily, First dose (after last modification) on Sun11/12/23 at 1600 Given 11/16/2023 8:30 AM FEED MANAGER 600 mg Given 11/15/2023 9:11 PM FEED MANAGER 600 mg Given 11/15/2023 3:04 PM FEED MANAGER 600 mg glucagon injection 1 mg 1 [...] 11/08/23 at 1248 Given 11/08/2023 12:54 PM FEED MANAGER 10 mg insulin lispro (HumaLOG, ADMELOG) 100 [...] Diabetes MellitusIndications:Diabetes Mellitus Given 11/16/2023 11:40 AM FEED MANAGER 2 Units Left Lower Abdomen Given 11/15/2023 5:22 PM FEED MANAGER 2 Units Le ft Lower Abdomen Given 11/15/2023 12:35 PM FEED MANAGER 2 Units L eft Lower Abdomen insulin [...] Diabetes MellitusIndications:Diabetes Mellitus Given 11/15/2023 9:25 PM FEED MANAGER 1 Units Right Lower Abdomen Given 11/14/2023 8:46 PM FEED MANAGER 1 Units Ri ght Lower Abdomen Given 11/13/2023 10:00 PM FEED MANAGER 1 Units L eft Lower Abdomen irbesartan (AVAPRO) tablet 150 mg 150 mg, oral, Every morning, First dose on 11/12/23 at 1630, Hold for SBP < 110, Indications: hypertensionIndications:hypertension Given 11/16/2023 8:29 AM FEED MANAGER 150 mg Given 11/15/2023 8:36 AM FEED MANAGER 150 mg Given 11/14/2023 8:18 AM FEED MANAGER 150 mg levETIRAcetam (KEPPRA) tablet 1,000 mg 1,000 mg, oral, 2 times daily, First dose on Helene 11/08/23 at 1245 Given 11/16/2023 8:30 AM FEED MANAGER 1,000 mg Given 11/15/2023 9:11 PM FEED MANAGER 1,000 mg Given 11/15/2023 8:36 AM FEED MANAGER 1,000 mg ondansetron (ZOFRAN) injection 4 mg 4 mg, intravenous, Administer over 2 Minutes, Every 6 hours PRN, nausea, Starting on Helene 11/08/23 at 1352, 1st line Given 11/09/2023 1:22 PM FEED MANAGER 4 mg Given 11/09/2023 9:58 AM FEED MANAGER 4 mg Given 11/08/2023 8:51 PM FEED MANAGER [address] (PROTONIX) extended release tablet 40 mg 40 mg, oral, Daily, First dose on Sun11/08/23 at 1245, Do not crush, chew, cut, dissolve, open or otherwise manipulate tablet/capsule., Indications: Treatment of Non-Bleeding Gastric DisorderIndications:Treatment of Non-Bleeding Gastric Disorder Given 11/16/2023 8:30 AM FEED MANAGER 40 mg Given 11/15/2023 8:36 AM FEED MANAGER 40 mg Given 11/14/2023 8:17 AM FEED MANAGER 40 mg prochlorperazine (COMPAZINE) injection 5 mg 5 mg, intravenous, Administer over 2 Minutes, Every 6 hours PRN, nausea, vomiting, 2nd line, Starting on Sun11/08/23 at 1709 Given 11/09/2023 10:02 AM FEED MANAGER 5 mg Given 11/08/2023 5:15 PM FEED MANAGER 5 mg ramelteon (ROZEREM) tablet 8 mg 8 mg, oral, Nightly, First dose on Sun11/08/23 at 2115, Indications: Sleep-Onset InsomniaIndications:Sleep-Onset Insomnia Given 11/15/2023 11:11 PM FEED MANAGER 8 mg Given 11/14/2023 11:53 PM FEED MANAGER 8 mg Given 11/13/2023 10:00 PM FEED MANAGER 8 mg senna-docusate (PERICOLACE) 8.6-50 mg per tablet 2 tablet 2 tablet, oral, 2 times daily, First dose on Sun11/10/23 at 1115 Given 11/16/2023 8:29 AM FEED MANAGER 2 tablets Given 11/15/2023 9:10 PM FEED MANAGER 2 tablets Given 11/15/2023 8:36 AM FEED MANAGER 2 tablets sodium chloride 0.9% flush 0.5-20 mL 0.5-20 mL, intra-catheter, Every 8 hours scheduled, First dose on Sun11/09/23 at 1700, Pre-Procedure (IR), Flush volume based on line type and size. Given 11/16/2023 5:14 AM FEED MANAGER 10 mL Given 11/15/2023 9:11 PM FEED MANAGER 10 mL Given 11/15/2023 6:09 AM FEED MANAGER 10 mL sodium chloride 0.9% flush 0.5-20 mL 0.5-20 mL, intra-catheter, As needed, line care, Starting on Sun11/09/23 at 1620, Pre-Procedure (IR), Flush volume based on line type and size. Flush before and after each use. sodium chloride 0.9% irrigation As needed, Starting on Sun11/08/23 at 0401, Intra-Op Given 11/08/2023 9:53 AM FEED MANAGER 1,000 mL Surgical Site Given 11/08/2023 8:29 AM FEED MANAGER 2,000 mL Scott rgical Site Given 11/08/2023 4:01 AM FEED MANAGER 1,000 mL Scott rgical Site tamsulosin (FLOMAX) extended release capsule 0.8 mg 0.8 mg, oral, Daily with dinner, First dose (after last modification) on Sun11/08/23 at 1800, Do not crush, chew, cut, dissolve, open or otherwise manipulate tablet/capsule. Given 11/15/2023 5:23 PM FEED MANAGER 0.8 mg Given 11/14/2023 5:53 PM FEED MANAGER 0.8 mg Given 11/13/2023 5:00 PM FEED MANAGER 0.8 mg thrombin-recombinant 5,000 unit topical solution As needed, Starting on Sun11/08/23 at 0357, Intra-Op Given 11/08/2023 3:57 AM FEED MANAGER 5,000 Units Devon k traMADoL (ULTRAM) tablet 50 mg 50 mg, oral, Every 4 hours PRN, 1st line for pain, Starting on Sun11/12/23 at 1545 Given 11/14/2023 1:00 PM FEED MANAGER 50 mg documented in this encounter Discontinued [...] capsuleIndications:Scott pplement Take 1 tablet by mouth advanced practice nurse psychotherapist before breakfast Stop Taking at Discharge 11/16/2023 [...] Recently Administered Medications Times are shown in FEED MANAGER. Scheduled Medication Order 11/14/2023 11/15/2023 11/16/2023 acetaminophen (TYLENOL) tablet 1,000 mg 1,000 mg, oral, Every 6 hours, First dose (after last modification) on Helene 11/08/23 at 2683 4771 (Given - Provider: Son Brown RN)1665 (Given - Provider: Radha [place] RN)1753 (Given [...] [place] RN) 1140 (Given - Provider: Deisy Chiagn, NARENDRA) cyclobenzaprine (FLEXERIL) tablet 5 mg 5 [...] Hurtado RN) 0514 (Given - Provider: Joann Hurtado, NARENDRA) tamsulosin (FLOMAX) extended release capsule [...] 1 11/09/2023 VITAL SIGNS 1 11/09/2023 VOID MARINE FUEL DOCK ATTENDANT TO OR 1 11/09/2023 WOUND CARE 1 [...] 11/08/2023 documented in this encounter Care Teams Hybrid Technologist Relationship Specialty Start Date End Date Rl Medina DO [address] [place] [address] PCP - General 08/09/17 05/25/24 Marlen Gray, RN [address] [address] SHOP Outpatient Nurse Emergency Room 10/31/23 11/15/23 documented as of this encounter
--- OUTSIDE RECORDS SUMMARY | 2024-11-05 23:00 | XMS_ITS | Encounter Summary ---
Author Organization [facility] Address [address] [place] [address] Phone Care Team Providers Care Homogenizer Operator Name Role Phone Rl Medina DO Primary Care Provider Marlen Gray RN Unavailable [phone] Encounter Details Date Type Department Care Team (Late st Contact Info) Description 11/12/2023 Telephone [facility] Cardiology [address] [facility] 8th [place] [address] [place] [address] Saige Napoles Social History Tobacco Use Types Packs/Day Years Used Date Smoking Tobacco: Former Cigarettes 1 11 0 11/05/1968 - 11/05/1979 Passive Smoke Exposure: Past Smokeless Tobacco: Never Alcohol Use Standard Drinks/Week Comments Yes 14 (1 standard drink = 0.6 oz pu re alcohol) social [facility] Utilities Answer Date Recorded In the past 12 months has [employer], gas, oil, or water [employer] threatened to shut off services in your [...] week 11/30/2023 How often do you attend [facility] or taoist services? 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 no TYPE OF CONSULT: general CALLER'S NAME: JOEL NICOLASA CALLER'S PAGER: [phone] PATIENT'S NAME: Hira Evans : 1950 CAMPUS: [facility] PATIENT'S LOCATION: [address] [place] [address] REASON FOR CONSULT: OTHER CARDIAC ARREST S/P L4 AND L5 POSTERIOR SPINAL FUSION AND DECOMPRESSION CL[place]ONBETZY ATTENDING PHYSICIAN: DR CAPELLAN EWORK TRACER documented in this encounter Plan of Treatment Not on file documented as of this encounter Visit Diagnoses Not on filedocumented in this encounter Care Teams Homogenizer Operator Relationship Specialty Start Date End Date Rl Medina DO [address] [place] [address] PCP - General 08/09/17 05/25/24 Marlen Gray RN [address] [facility] [address] [place] [address] SHOP Outpatient Assistant Track And Field Coach 10/31/23 11/15/23 documented as of this encounter
--- OUTSIDE RECORDS SUMMARY | 2024-11-05 23:00 | XMS_ITS | Encounter Summary ---
Author Organization [facility] Healthcare Address [address] [place] [address] Care Team Providers Care Armored Car Driver Name Role Phone Rl Medina DO Primary Care Provider Marlen Gray RN Unavailable [phone] Reason for Visit * Reason Comments Successfully Completed Encounter Details Date Type Department Care Team (Late st Contact Info) Description 11/07/2023 SHOP/CHAP Subsequent Outreach [facility]NAGEMENT [address] [place] [address] Marlen Gray, RN [address] [address] Social History Tobacco Use Types Packs/Day Years Used Date Smoking Tobacco: Former Cigarettes 1 11 0 11/05/1968 - 11/05/1979 Passive Smoke Exposure: Past Smokeless Tobacco: Never Alcohol Use Standard Drinks/Week Comments Yes 14 (1 standard drink = 0.6 oz pu re alcohol) social [facility] Utilities Answer Date Recorded In the past 12 months has [employer], gas, oil, or water company threatened [...] attend chur ch or zoroastrianism services? Never 10/31/2023 Do you belong to [...] slept in a [facility] (including now)? 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 Encouraged to call with any needs. TY FELONY CLERK documented in this encounter Plan of Treatment Not on file documented as of this encounter Visit Diagnoses Not on filedocumented in this encounter Care Teams Armored Car Driver Relationship Specialty Start Date End Date Rl Medina DO [address] [place] [address] PCP - General 08/09/17 05/25/24 Marlen Gray RN [address] [facility] [address] [place] [address] SHOP Outpatient Hot Stone Setter 10/31/23 11/15/23 documented as of this encounter
--- OUTSIDE RECORDS SUMMARY | 2024-11-05 23:00 | XMS_ITS | Encounter Summary ---
Author Organization [facility] Healthcare Address [address] [place] [address] Care Team Providers Care Press Feeder Broomcorn Name Role Phone Rl Medina DO Primary Care Provider Marlen Gray RN Unavailable [phone] Encounter Details Date Type Department Care Team (Late st Contact Info) Description 11/09/2023 Orders Only [facility] Radiology [address] [place] [address] Melissa Dasilva RN Social History Tobacco Use Types Packs/Day Years Used Date Smoking Tobacco: Former Cigarettes 1 11 0 11/05/1968 - 11/05/1979 Passive Smoke Exposure: Past Smokeless Tobacco: Never Alcohol Use Standard Drinks/Week Comments Yes 14 (1 standard drink = 0.6 oz pu re alcohol) social [facility] Utilities Answer Date Recorded In the past 12 months has [employer], oil, or water [employer] threatened to shut off services in [...] How often do you attend chur or synagogue services? 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
--- OUTSIDE RECORDS SUMMARY | 2024-11-05 23:00 | XMS_ITS | Encounter Summary ---
Author Organization [facility] Address [address] [place] [address] Phone Care Team Providers Care Channel Program Manager Name Role Phone Rl Medina DO Primary Care Provider Marlen Gray RN Unavailable [phone] Encounter Details Date Type Department Care Team (Late st Contact Info) Description 11/07/2023 Telephone [facility] Orthopaedic Surgery [address] [facility] 1st Floor [address] [place] [address] Marcial Vu Jr., MD [address] [facility] [address] [place] [address] Social History Tobacco Use Types Packs/Day Years Used Date Smoking Tobacco: Former Cigarettes 1 11 0 11/05/1968 - 11/05/1979 Passive Smoke Exposure: Past Smokeless Tobacco: Never Alcohol Use Standard Drinks/Week Comments Yes 14 (1 standard drink = 0.6 oz pu re alcohol) social [facility] Utilities Answer Date Recorded In the past 12 months has [employer], gas, oil, or water company threatened to [...] attend chur ch or muslim services? 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 I told him that he should be NPO. We will see him in person as soon as he arrives in the emergency department and obtain the MRI emergently. Marcial Vu Jr., MD Comb Fixer Department of Orthopaedic Surgery Division of Spine Surgery [facility] [employer] [place], [place] PRECIPITATOR OPERATOR documented in this encounter Plan of Treatment Not on file documented as of this encounter Visit Diagnoses Not on filedocumented in this encounter Care Teams Channel Program Manager Relationship Specialty Start Date End Date Rl Medina DO [address] [place] [address] PCP - General 08/09/17 05/25/24 Marlen Gray RN [address] [facility] [address] [place] [address] SHOP Outpatient Pilot Safety Inspector 10/31/23 11/15/23 documented as of this encounter
--- OUTSIDE RECORDS SUMMARY | 2024-11-05 23:00 | XMS_ITS | Encounter Summary ---
Author Organization [facility] Healthcare Address [address] [place] [address] Care Team Providers Care Tour Conductor Name Role Phone Rl Medina DO Primary Care Provider Marlen Gray RN Unavailable [phone] Reason for Visit * Reason Comments Chart Review Encounter Details Date Type Department Care Team (Late st Contact Info) Description 11/07/2023 SHOP/CHAP Subsequent Outreach [facility] [address] [place] [address] Latha Yeager, [facility] [address] [facility] ([facility] Mailstop [phone] [place] [address] Social History Tobacco Use Types Packs/Day Years Used Date Smoking Tobacco: Former Cigarettes 1 11 0 11/05/1968 - 11/05/1979 Passive Smoke Exposure: Past Smokeless Tobacco: Never Alcohol Use Standard Drinks/Week Comments Yes 14 (1 standard drink = 0.6 oz pu re alcohol) social C Utilities Answer Date Recorded In the past 12 months has [employer] electric, gas, oil, or water company threatened [...] attend chur ch or shinto services? Never 10/31/2023 Do you belong to [...] in a skilled nursing (including now)? 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 Patient presented to ED with [...] was identified: Admit Inpatient.. Contact Marlen Gray [phone] as additional needs are identified. Latha Yeager LCSW ND MIXER documented in this encounter Plan of Treatment Not on file documented as of this encounter Visit Diagnoses Not on filedocumented in this encounter Care Teams Tour Conductor Relationship Specialty Start Date End Date Rl Medina DO [address] [place] [address] PCP - General 08/09/17 05/25/24 Marlen Gray RN [address] [facility] [address] [place] [address] [facility] Outpatient Property Valuer 10/31/23 11/15/23 documented as of this encounter
--- OUTSIDE RECORDS SUMMARY | 2024-11-05 23:00 | XMS_ITS | Encounter Summary ---
Author Organization [facility] Healthcare Address [address] [place] [address] Care Team Providers Care Water Truck Driver Name Role Phone Rl Medina DO Primary Care Provider [phone] Marlen Gray RN Unavailable Reason for Visit * Auth/Cert (Routine) Specialty Diagnoses / Procedures Referred By Contac t Referred To Contact Diagnoses Paralysis of both lower limbs (CMS/HCC) (HCC) numbness and weakness post spinal surgery Procedures NA Referral ID Status Reason Start Date Expiration Date Visits Re quested Visits Authorized [id number] 1 1 Encounter Details Date Type Department Care Team (Late st Contact Info) Description 11/08/2023 2:55 AM PRESS TENDER SHORT GOODS Anesthesia Event [facility] Operating Room [address] [place] [address] Hood Kim MD [address] [place] [address] Torey Murray MD PhD [address] [place] [address] Anesthesia Record Procedure Summary Procedure Name Responsible [...] = 0.6 oz pu re alcohol) social [employer] Utilities Answer Date Recorded In the past 12 months has [employer], oil, or water [employer] threatened to shut off services in your [...] attend chur ch or pentecostal services? 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 Not on file Not on file documented as of this encounter OR Notes * Anesthesia Postprocedure Evaluation - Hood Kim MD - 11/08/2023 11:37 AM CST Patient: Hira Evans Procedure Summary Date: 11/08/23 Room / Location: [facility] OR POD 5 ROOM 235 / [facility] OR POD 5 Anesthesia Start: 0255 Anesthesia [...] - patient participated Level of consciousness: arouses professional security officer Pain management: adequate Airway patency: adequate Evidence of recall: no Cardiovascular status: acceptable Respiratory status: acceptable Hydration status: acceptable Pt is: normothermic Nausea/Vomiting status: none There were no known notable events for this encounter. S TENDER SHORT GOODS * Anesthesia Preprocedure Evaluation - Edmond Barker MD - 11/08/2023 4:50 AM CST Images from the original note were not included. Anesthesia Evaluation Hira Evans is a 73 y.o. male Procedure(s): LAMINECTOMY THORACIC DECOMPRESSION LAMINECTOMY LUMBAR - POSTERIOR SPINAL CORD MONITORING Pre-Op Diagnosis Codes: * Paralysis of both lower limbs (CMS/[facility]) ([facility]) [G82.20] Patient Active Problem List Diagnosis Date Noted Paralysis of both lower limbs (CMS/HCC) ([facility]) 11/07/2023 Pulmonary embolism ([facility]) 10/26/2023 S/P spinal fusion 10/23/2023 Cardiac arrest ([facility]) 10/23/2023 Left perinephric collection, 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 10/15/2023 Ureteral colic 10/13/2023 UTI (urinary tract infection) 10/13/2023 Hydronephrosis with urinary obstruction due to renal calculus 10/12/2023 Lumbar radiculopathy 10/08/2023 Gross hematuria 10/18/2022 Bladder neck obstruction 10/17/2022 Lesion of urinary bladder 10/17/2022 Prostate cancer ([facility]) 10/17/2022 HTN (hypertension) 10/10/2021 Risk factors for obstructive sleep apnea 10/10/2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 Induction: Induction: intravenous. Postoperative Plan: Postoperative administration opioids intended. Informed Consent: Discussed plan with resident. Anesthesia plan and risks discussed with patient. Plan and Consent Comments: GA risks discussed including risk of perioperative HI, CVA, cardiac arrest as well as prone [...] and agree to proceed. All questions answered. S TENDER SHORT GOODS * Anesthesia Procedure Notes - Tobias Rivas MD - 11/08/2023 4:06 AM PRESS TENDER SHORT GOODS Associated Order(s): Peripheral IV Catheter Peripheral IV [...] patient tolerated procedure well with no complications S TENDER SHORT GOODS * Anesthesia Procedure Notes - Tobias Rivas MD - 11/08/2023 4:05 AM PRESS TENDER SHORT GOODS Associated Order(s): Peripheral IV Catheter Peripheral IV [...] patient tolerated procedure well with no complications S TENDER SHORT GOODS S TENDER SHORT GOODS * Anesthesia Procedure Notes - Tobias Rivas MD - 11/08/2023 4:04 AM PRESS TENDER SHORT GOODS Associated Order(s): Arterial Line Arterial Line Patient [...] patient tolerated procedure well with no complications S TENDER SHORT GOODS * Anesthesia Procedure Notes - Tobias Rivas MD - 11/08/2023 4:03 AM PRESS TENDER SHORT GOODS Associated Order(s): Arterial Line Arterial Line Patient [...] patient tolerated procedure well with no complications S TENDER SHORT GOODS * Anesthesia Procedure Notes - Tobias Rivas MD - 11/08/2023 4:02 AM PRESS TENDER SHORT GOODS Associated Order(s): Airway Airway Patient location: OR [...] with: silk tape Number of attempts: 1 S TENDER SHORT GOODS documented in this encounter Plan of Treatment Not on file documented as of this encounter Procedures Procedure Name Priority Date/Time Associated Diagnosis Comments PERIPHERAL LINE Routine 11/08/2023 4:06 AM PRESS TENDER SHORT GOODS PERIPHERAL LINE Routine 11/08/2023 4:05 AM PRESS TENDER SHORT GOODS ANESTHESIA ARTERIAL LINE PLACEMENT Routine 11/08/2023 4:04 AM PRESS TENDER SHORT GOODS ANESTHESIA ARTERIAL LINE PLACEMENT Routine 11/08/2023 4:03 AM PRESS TENDER SHORT GOODS ANESTHESIA INTUBATION Routine 11/08/2023 4:02 AM PRESS TENDER SHORT GOODS documented in this encounter Results * Peripheral IV Catheter (11/08/2023 4:06 AM PRESS TENDER SHORT GOODS) Narrative Tobias Rivas MD - 11/08/2023 4:06 AM PRESS TENDER SHORT GOODS Tobias Rivas MD ? 11/08/2023 ??4:07 AM [...] * Peripheral IV Catheter (11/08/2023 4:05 AM PRESS TENDER SHORT GOODS) Narrative Tobias Rivas MD - 11/08/2023 4:05 AM PRESS TENDER SHORT GOODS Tobias Rivas MD ? 11/08/2023 ??4:07 AM [...] tolerated procedure well with no complications Result [facility] Edmond Barker MD ANESTHESIA ORDERABLES Edited Result - Final * Arterial Line (11/08/2023 4:04 AM PRESS TENDER SHORT GOODS) Narrative Tobias Rivas MD - 11/08/2023 4:04 AM PRESS TENDER SHORT GOODS Tobias Rivas MD ? 11/08/2023 ??4:05 AM [...] tolerated procedure well with no complications Result [facility] Edmond Barker MD ANESTHESIA ORDERABLES Final Result * Arterial Line (11/08/2023 4:03 AM PRESS TENDER SHORT GOODS) Narrative Tobias Rivas MD - 11/08/2023 4:03 AM PRESS TENDER SHORT GOODS Tobias Rivas MD ? 11/08/2023 ??4:04 AM [...] Final Result * Airway (11/08/2023 4:02 AM PRESS TENDER SHORT GOODS) Narrative Tobias Rivas MD - 11/08/2023 4:02 AM PRESS TENDER SHORT GOODS Tobias Rivas MD ? 11/08/2023 ??4:03 AM [...] 0605, Anesthesia Intra-op Given 11/08/2023 6:05 AM PRESS TENDER SHORT GOODS 0.5 g ceFAZolin (ANCEF) injection intravenous, Administer over 3 Minutes, As needed, Starting on Helene 11/08/23 at 0436, Anesthesia Intra-op Given 11/08/2023 8:29 AM PRESS TENDER SHORT GOODS 2,000 mg Given 11/08/2023 4:36 AM PRESS TENDER SHORT GOODS 2,000 mg dexAMETHasone (DECADRON) 4 mg/mL injection intravenous, Administer over 2 Minutes, As needed, Starting on Helene 11/08/23 at 0512, Anesthesia Intra-op Given 11/08/2023 5:12 AM PRESS TENDER SHORT GOODS 4 mg fentaNYL (SUBLIMAZE) preservative free injection intravenous, Continuous PRN, Starting on Helene 11/08/23 at 0306, Anesthesia Intra-op Rate/Dose Change 11/08/2023 6:26 AM PRESS TENDER SHORT GOODS 0.5 mcg/kg/hr 0.886 mL/hr Rate/Dose Change 11/08/2023 5:06 AM PRESS TENDER SHORT GOODS 1 mcg/kg/hr 1.772 mL/hr New Bag 11/08/2023 3:06 AM PRESS TENDER SHORT GOODS 2 mcg/kg/hr 3.544 mL/hr fentaNYL (SUBLIMAZE) preservative free syringe intravenous, As needed, Starting on Helene 11/08/23 at 0306, Anesthesia Intra-op Given 11/08/2023 7:29 AM PRESS TENDER SHORT GOODS 100 mcg Given 11/08/2023 6:26 AM PRESS TENDER SHORT GOODS 100 mcg Given 11/08/2023 5:23 AM PRESS TENDER SHORT GOODS 100 mcg HYDROmorphone (DILAUDID) injection intravenous, Administer over 2 Minutes, As needed, Starting on Helene 11/08/23 at 0938, Anesthesia Intra-op Given 11/08/2023 10:31 AM PRESS TENDER SHORT GOODS 0.2 mg Given 11/08/2023 10:04 AM PRESS TENDER SHORT GOODS 0.2 mg Given 11/08/2023 9:38 AM PRESS TENDER SHORT GOODS 0.4 mg insulin regular (HumuLIN R, NovoLIN R) 100 unit/mL injection intravenous, As needed, Starting on Helene 11/08/23 at 0827, Anesthesia Intra-op Given 11/08/2023 8:27 AM PRESS TENDER SHORT GOODS 1 Units Lactated Ringer's (LR) infusion intravenous, Continuous PRN, Starting on Helene 11/08/23 at 0300, Anesthesia Intra-op Rate/Dose Change 11/08/2023 8:03 AM PRESS TENDER SHORT GOODS 50 mL/hr New Bag 11/08/2023 3:00 AM PRESS TENDER SHORT GOODS 75 mL/hr lidocaine (cardiac) (XYLOCAINE) preservative free injection intravenous, As needed, Starting on Helene 11/08/23 at 0306, Anesthesia Intra-op, Indications: Ventricular ArrhythmiasIndications:V entricular Arrhythmias Given 11/08/2023 3:06 AM PRESS TENDER SHORT GOODS 100 mg ondansetron (ZOFRAN) injection intravenous, Administer over 2 Minutes, As needed, Starting on Helene 11/08/23 at 1019, Anesthesia Intra-op Given 11/08/2023 10:19 AM PRESS TENDER SHORT GOODS 4 mg phenylephrine (ARIELLE-SYNEPHRINE) 1 mg/10 mL (100 mcg/mL) in sodium chloride 0.9% (premix) intravenous, Continuous PRN, Starting on Helene 11/08/23 at 0333, Anesthesia Intra-op Rate/Dose Change 11/08/2023 9:41 AM PRESS TENDER SHORT GOODS 0.3 mcg/kg/min 15.948 mL/hr Rate/Dose Change 11/08/2023 9:13 AM PRESS TENDER SHORT GOODS 0.4 mcg/kg/min 21. 264 mL/hr Rate/Dose Change 11/08/2023 8:01 AM PRESS TENDER SHORT GOODS 0.2 mcg/kg/min 10. 632 mL/hr phenylephrine (ARIELLE-SYNEPHRINE) 1 mg/10 mL (100 mcg/mL) in sodium chloride 0.9% (premix) intravenous, As needed, Starting on Helene 11/08/23 at 0332, Anesthesia Intra-op Given 11/08/2023 9:11 AM PRESS TENDER SHORT GOODS 200 mcg Given 11/08/2023 7:42 AM PRESS TENDER SHORT GOODS 100 mcg Given 11/08/2023 7:14 AM PRESS TENDER SHORT GOODS 100 mcg propofoL (DIPRIVAN) 10 mg/mL IV intravenous, As needed, Starting on Helene 11/08/23 at 0307, Anesthesia Intra-op Bolus 11/08/2023 10:44 AM PRESS TENDER SHORT GOODS 40 mg Bolus 11/08/2023 10:38 AM PRESS TENDER SHORT GOODS 20 mg Bolus 11/08/2023 10:30 AM PRESS TENDER SHORT GOODS 20 mg propofoL (DIPRIVAN) 10 mg/mL IV intravenous, Continuous PRN, Starting on Helene 11/08/23 at 0315, Anesthesia Intra-op Rate/Dose Change 11/08/2023 10:00 AM PRESS TENDER SHORT GOODS 40 mcg/kg/min 21.264 mL/hr Rate/Dose Change 11/08/2023 9:25 AM PRESS TENDER SHORT GOODS 50 mcg/kg/min 26.5 8 mL/hr Rate/Dose Change 11/08/2023 8:19 AM PRESS TENDER SHORT GOODS 70 mcg/kg/min 37.2 12 mL/hr sodium chloride 0.9% infusion intravenous, Continuous PRN, Starting on Helene 11/08/23 at 0329, Anesthesia Intra-op New Bag 11/08/2023 3:29 AM PRESS TENDER SHORT GOODS succinylcholine (ANECTINE) injection intravenous, As needed, Starting on Helene 11/08/23 at 0308, Anesthesia Intra-op Given 11/08/2023 3:08 AM PRESS TENDER SHORT GOODS 60 mg Transfuse plasma Timed New Bag 11/08/2023 9:32 AM PRESS TENDER SHORT GOODS Transfuse RBC Timed New Bag 11/08/2023 4:52 AM PRESS TENDER SHORT GOODS Transfuse RBC Timed New Bag 11/08/2023 5:58 AM PRESS TENDER SHORT GOODS Transfuse RBC Timed New Bag 11/08/2023 7:36 AM PRESS TENDER SHORT GOODS vancomycin (VANCOCIN) solution intravenous, As needed, Starting on Helene 11/08/23 at 0330, Anesthesia Intra-op Given 11/08/2023 3:30 AM PRESS TENDER SHORT GOODS 1,500 mg documented in this encounter Care Teams Water Truck Driver Relationship Specialty Start Date End Date Rl Medina DO [address] [place] [address] PCP - General 08/09/17 05/25/24 Marlen Gray, RN [address] [address] [facility] Outpatient Pay Agent 10/31/23 11/15/23 documented as of this encounter
--- OUTSIDE RECORDS SUMMARY | 2024-11-05 23:00 | XMS_ITS | Encounter Summary ---
Author Organization [facility] Address [address] [place] [address] Phone Care Team Providers Care Hospitality Services Manager Name Role Phone Rl Medina DO Primary Care Provider Marlen Gray RN Unavailable Encounter Details Date Type Department Care Team (Late st Contact Info) Description 11/08/2023 1:00 PM HARNESS WORKER Ancillary Procedure [facility] Vascular Lab IP [address] [facility] [address] [place] [address] Social History Tobacco Use Types Packs/Day Years Used Date Smoking Tobacco: Former Cigarettes 1 11 0 11/05/1968 - 11/05/1979 Passive Smoke Exposure: Past Smokeless Tobacco: Never Alcohol Use Standard Drinks/Week Comments Yes 14 (1 standard drink = 0.6 oz pu re alcohol) social [facility] Utilities Answer Date Recorded In the past 12 months has [employer], gas, oil, or water [employer] threatened to shut off services in your [...] week 10/31/2023 How often do you attend [facility] or scient[facility] services? Never 10/31/2023 Do you belong to [...] slept in a jail (including now)? 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 Not on file Not on file documented as of this encounter Plan of Treatment Not on file documented as of this encounter Procedures Procedure Name Priority Date/Time Associated Diagnosis Comments US VEIN DUPLEX LOWER EXTREMITY BILATERAL COMPLETE ED Urgent/IP Urgent 11/08/2023 3:07 PM HARNESS WORKER documented in this encounter Results * US Vein Duplex Lower Extremity Bilateral Complete (11/08/2023 3:07 PM HARNESS WORKER) Anatomical Region Laterality Modality Vascular Bilateral Ultrasound 11/08/2023 2:22 PM HARNESS WORKER Narrative 11/09/2023 1:26 AM HARNESS WORKER [facility] - Department of Vascular Surgery, Vascular Laboratory [address] [place] [address] Lower Extremity Venous Ultrasound Report Patient Name: HIRA EVANS WILLIAM : 1950 (73y 4m) Study Date: 11/08/2023 2:22:46 PM Gender: M Tech: PR Location: [id number] Ref Provider: VICKI REHMAN ?Quality: Adequate Order [...] INDICATIONS: recent bilateral PE - FINDINGS: Performing Manager Market Intelligence: Nola Walker RVT, RDMS. Bilateral: Venous Doppler [...] By: Shayan Jameson MD FACS 2023-11-09 01:25:55 HARNESS WORKER Procedure Note Shayan Jameson MD - 11/09/2023 [facility] - Department of Vascular Surgery,Vascular Laboratory [address] [place] [address] Lower Extremity Venous Ultrasound Report Patient Name: HIRA EVANS WILLIAM : 1950 (73y 4m) Study Date: 11/08/2023 2:22:46 PM Gender: M Tech: PR Location: [id number] Ref Provider: VICKI REHMAN Quality: Adequate Order Provider: VICKI REHMAN PROCEDURES: Vascular Report: Venous Duplex imaging was performed bilaterally in the lower extremities.The common femoral, femoral, popliteal, posterior tibial, peroneal veins wereevaluated for patency, spontaneity and phasicity with Doppler, compression and augmentationmaneuvers. Great saphenous vein proximal at the junction was evaluated with compressionmaneuvers. INDICATIONS: recent bilateral PE - FINDINGS: Performing Manager Market Intelligence: Nola Walker RVT, CASTILLO. Bilateral: Venous Doppler [...] above. Electronically Signed By: Shayan Jameson MD [facility]GED WITH [facility] 2023-11-09 01:25:55 HARNESS WORKER us Vicki Rehman GLASS SANDER IMG US PROCEDURES Fide l Result documented in this encounter Visit Diagnoses Not on filedocumented in this encounter Care Teams Hospitality Services Manager Relationship Specialty Start Date End Date Rl Medina DO [address] [place] [address] PCP - General 08/09/17 05/25/24 Marlen Gray RN [address] [address] [facility] Out[facility] Pickle Processor 10/31/23 11/15/23 documented as of this encounter
--- OUTSIDE RECORDS SUMMARY | 2024-11-05 23:01 | XMS_ITS | Encounter Summary ---
Author Organization [facility] Address [address] [place] [address] Phone Care Team Providers Care Specialty Sales Representative Name Role Phone Rl Medina DO Primary Care Provider Em Witt RN Unavailable [phone] Marlen Gray RN Unavailable [phone] Encounter Details Date Type Department Care Team (Late st Contact Info) Description 10/30/2023 Telephone [facility] [address] [facility] Advanced Medicine 6th [place] [address] [place] [address] Melissa Croft, NARENDRA Social History Tobacco Use Types Packs/Day Years Used Date Smoking Tobacco: Former Cigarettes 1 11 0 11/05/1968 - 11/05/1979 Passive Smoke Exposure: Past Smokeless Tobacco: Never Alcohol Use Standard Drinks/Week Comments Yes 14 (1 standard drink = 0.6 oz pu re alcohol) social C Utilities Answer Date Recorded In the past 12 months has [employer] electric, gas, oil, or water company threatened [...] 12/27/2023 How often do you attend [facility] or scientologist services? 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 I [...] new or worsening symptoms, questions or concerns. STANT COUNSEL * Telephone Encounter - Ling Walker CMA - 01/09/2024 1:28 PM CST Pt spouse Val called indicating pt has not started the taper of Keppra as of yet and on Sunday 3/ pt had a seizure that was witnessed by his children at [facility], pt spouse notes started shaking and slumped over lasting less than 1 minute in length. Pt spouse asking how they should proceed at this time with Keppra medication, pt is currently taking 1000mg BID. STANT COUNSEL * Telephone Encounter - Carey Reddy - 10/30/2023 11:51 AM CST PT is scheduled. Spoke with spouse and let her know that I will be sending reminders in the mail and it will also update on mychart. Pt spouse appreciative of the call STANT COUNSEL * Telephone Encounter - Melissa Croft RN - 10/30/2023 9:56 AM CST ----- Message from Yumiko Rome MD sent at 10/28/2023 3:17 PM ASSISTANT COUNSEL ----- Regarding: Follow up Please schedule a follow-up appointment for Hira Evans (: 1950) to be seen by thenurse practitioner in 4-6 weeks with a head CT without contrast. The patient was seen as a consult for thin BL SDH, which was managed non- operatively with observation. Antiplatelet/anticoagulation medications being held: none Thank you Yumiko Rome MD STANT COUNSEL documented in this encounter Plan of Treatment Not on file documented as of this encounter Visit Diagnoses Not on filedocumented in this encounter Care Teams Specialty Sales Representative Relationship Specialty Start Date End Date Rl Medina DO [address] [place] [address] PCP - General 08/09/17 05/25/24 Em Witt RN [address] [address] [facility] Out[facility] Greige Goods Inspector 10/30/23 10/30/23 Marlen Gray RN [address] [address] [facility] Out[facility] Greige Goods Inspector 10/31/23 11/15/23 documented as of this encounter
--- OUTSIDE RECORDS SUMMARY | 2024-11-05 23:01 | XMS_ITS | Encounter Summary ---
Author Organization [facility] Address [address] [place] [address] Phone Care Team Providers Care Rolling Mill Plugger Name Role Phone Rl Medina DO Primary Care Provider Marlen Gray RN Unavailable [phone] Encounter Details Date Type Department Care Team (Late st Contact Info) Description 11/07/2023 Telephone [facility] Pediatric Orthopedics [address] [facility] 1st Floor [address] [place] [address] Marcial Vu MD [address] [place] [address] Social History Tobacco Use Types Packs/Day Years Used Date Smoking Tobacco: Former Cigarettes 1 11 0 11/05/1968 - 11/05/1979 Passive Smoke Exposure: Past Smokeless Tobacco: Never Alcohol Use Standard Drinks/Week Comments Yes 14 (1 standard drink = 0.6 oz pu re alcohol) social AHC Utilities Answer Date Recorded In the past 12 months has [employer], gas, oil, or water company threatened to [...] attend chur ch or baptist services? 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 Call back number provided [phone] ITURE SERVICER documented in this encounter Plan of Treatment Not on file documented as of this encounter Visit Diagnoses Not on filedocumented in this encounter Care Teams Rolling Mill Plugger Relationship Specialty Start Date End Date Rl Medina DO [address] [place] [address] PCP - General 08/09/17 05/25/24 Marlen Gray RN [address] [facility] [address] [place] [address] SHOP Outpatient Combine Operator 10/31/23 11/15/23 documented as of this encounter
--- OUTSIDE RECORDS SUMMARY | 2024-11-05 23:01 | XMS_ITS | Encounter Summary ---
Author Organization [facility] Healthcare Address [address] [place] [address] Care Team Providers Care Morning Caregiver Name Role Phone Rl Medina DO Primary Care Provider Marlen Gray RN Unavailable Reason for Visit * Reason Comments Successfully Completed Encounter Details Date Type Department Care Team (Late st Contact Info) Description 10/31/2023 SHOP/CHAP Initial Outreach [facility] OP CASE MANAGEMENT [address] [place] [address] Marlen Gray, RN [address] [facility] [address] [place] [address] Social History Tobacco Use Types Packs/Day Years Used Date Smoking Tobacco: Former Cigarettes 1 11 0 11/05/1968 - 11/05/1979 Passive Smoke Exposure: Past Smokeless Tobacco: Never Alcohol Use Standard Drinks/Week Comments Yes 14 (1 standard drink = 0.6 oz pu re alcohol) social AHC Utilities Answer Date Recorded In the past 12 months has [employer], gas, oil, or water company threatened [...] attend chur ch or catholic services? Never 10/31/2023 Do you belong to [...] slept in a snf (including now)? 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 Encouraged to call with any needs. TURNER documented in this encounter Plan of Treatment Not on file documented as of this encounter Visit Diagnoses Not on filedocumented in this encounter Care Teams Morning Caregiver Relationship Specialty Start Date End Date Rl Medina DO [address] [place] [address] PCP - General 08/09/17 05/25/24 Marlen Gray RN [address] [facility] [address] [place] [address] SHOP Outpatient Stave Mill Hand 10/31/23 11/15/23 documented as of this encounter
--- OUTSIDE RECORDS SUMMARY | 2024-11-05 23:01 | XMS_ITS | Encounter Summary ---
Author Organization [facility] Address [address] [place] [address] Care Team Providers Care Experimental Box Tester Name Role Phone Rl Medina DO Primary Care Provider Marlen Gray RN Unavailable [phone] Reason for Visit * Reason Comments Chart Review Encounter Details Date Type Department Care Team (Late st Contact Info) Description 10/31/2023 SHOP/CHAP Initial Eligibility Review [facility] CASE [facility]NAGEMENT [address] [place] [address] Em Witt RN [address] [address] Social History Tobacco Use Types Packs/Day Years Used Date Smoking Tobacco: Former Cigarettes 1 11 0 11/05/1968 - 11/05/1979 Passive Smoke Exposure: Past Smokeless Tobacco: Never Alcohol Use Standard Drinks/Week Comments Yes 14 (1 standard drink = 0.6 oz pu re alcohol) social AHC Utilities Answer Date Recorded In the past 12 months has [employer], gas, oil, or water company threatened to [...] attend chur ch or nondenominational services? Never 10/31/2023 Do you belong to [...] slept in a chcf (including now)? 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
--- OUTSIDE RECORDS SUMMARY | 2024-11-05 23:01 | XMS_ITS | Encounter Summary ---
Author Organization [facility] Address [address] [place] [address] Phone Care Team Providers Care Renewable Energy Engineer Name Role Phone Rl Medina DO Primary Care Provider Marlen Gray RN Unavailable [phone] Encounter Details Date Type Department Care Team (Late st Contact Info) Description 11/01/2023 Documentation [facility] Orthopaedic Surgery [address] [place] [address] Marcila Vu Jr., MD [address] [facility] [address] [place] [address] Social History Tobacco Use Types Packs/Day Years Used Date Smoking Tobacco: Former Cigarettes 1 11 0 11/05/1968 - 11/05/1979 Passive Smoke Exposure: Past Smokeless Tobacco: Never Alcohol Use Standard Drinks/Week Comments Yes 14 (1 standard drink = 0.6 oz pu re alcohol) social AHC Utilities Answer Date Recorded In the past 12 months has [employer], gas, oil, or water company threatened to [...] attend chur ch or anglican services? 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 Marcial Vu Jr., MD Chinese Language Professor Department of Orthopaedic Surgery Division of Spine Surgery [facility] [employer] [place], [place] P CARRIER OPERATOR documented in this encounter Plan of Treatment Not on file documented as of this encounter Visit Diagnoses Not on filedocumented in this encounter Care Teams Renewable Energy Engineer Relationship Specialty Start Date End Date Rl Medina DO [address] [place] [address] PCP - General 08/09/17 05/25/24 Marlen Gray RN [address] [facility] [address] [place] [address] SHOP Outpatient Hospital Housekeeper 10/31/23 11/15/23 documented as of this encounter
--- OUTSIDE RECORDS SUMMARY | 2024-11-05 23:01 | XMS_ITS | Encounter Summary ---
Author Organization [facility] Address [address] [place] [address] Phone Care Team Providers Care Milk Tester Name Role Phone Rl Medina DO Primary Care Provider [phone] Marlen Gray RN Unavailable [phone] Encounter Details Date Type Department Care Team (Late st Contact Info) Description 11/06/2023 Telephone [facility] Orthopaedic Surgery [address] [facility] 1st Floor [address] [place] [address] Marcial Vu Jr., MD [address] [facility] [address] [place] [address] Social History Tobacco Use Types Packs/Day Years Used Date Smoking Tobacco: Former Cigarettes 1 11 0 11/05/1968 - 11/05/1979 Passive Smoke Exposure: Past Smokeless Tobacco: Never Alcohol Use Standard Drinks/Week Comments Yes 14 (1 standard drink = 0.6 oz pu re alcohol) social AHC Utilities Answer Date Recorded In the past 12 months has [employer], gas, oil, or water company threatened to [...] attend chur ch or judaism services? Never 10/31/2023 Do you belong to [...] slept in a detention (including now)? 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 AURANT EXPEDITOR * Telephone Encounter - Galina Franco RN - 11/07/2023 12:[address] Vu requesting to see pt in clinic tomorrow. Left for Val requesting a call back to schedule appt. AURANT EXPEDITOR * Telephone Encounter - Galina Franco RN - 11/07/2023 12:08 PM RESTAURANT EXPEDITOR Spoke with Val again. Val stated that [...] the meantime. Val in agreement with plan. AURANT EXPEDITOR * Telephone Encounter - Galina Franco RN [...] an update. Val is also planning to milk pickup driver toradol today. Advised pt to take toradol with/ after food and ensure taking omeprazole as well. Provided Val with my direct number today. Will discuss further recs with Dr. Vu once I receive update on pt's incision. Val inagreement with plan. AURANT EXPEDITOR * Telephone Encounter - Galina Franco RN - 11/06/2023 4:36 PM CST Contacted pt's , Val, to ensure pt takes prilosec while taking toradol. Pt's son, Marcial, answered the phone and took down instructions. Marcial will update Val when she returns. Pt or family to call back with additional questions or concerns. AURANT EXPEDITOR * Telephone Encounter - Marcial Vu MD [...] questions were answered. Marcial Vu Jr., MD Missile Facilities Repairer Department of Orthopaedic Surgery Division of Spine Surgery [facility] [place], [place] AURANT EXPEDITOR documented in this encounter Plan of Treatment Not on file documented as of this encounter Visit Diagnoses Not on filedocumented in this encounter Care Teams Milk Tester Relationship Specialty Start Date End Date Rl Medina DO [address] [place] [address] PCP - General 08/09/17 05/25/24 Marlen Gray RN [address] [facility] [address] [place] [address] SHOP Outpatient Surgical Product Sales Consultant 10/31/23 11/15/23 documented as of this encounter
--- OUTSIDE RECORDS SUMMARY | 2024-11-05 23:01 | XMS_ITS | Encounter Summary ---
Author Organization [facility] Address [address] [place] [address] Phone Care Team Providers Care Tongue And Groove Machine Operator Name Role Phone Rl Medina DO Primary Care Provider Em Witt RN Unavailable [phone] Marlen Gray RN Unavailable [phone] Reason for Referral * MRI/CAT/PET Scan (Routine) - Pending Review Specialty Diagnoses / Procedures Referred By Contac t Referred To Contact Radiology Diagnoses SDH (subdural hematoma) (HCC) Procedures CT Head WO Contrast Jeremy Mojica MD [address] [facility] [address] [place] [address] Phone: tel: fax: [facility] [address] [place] [address] Referral ID Status Reason Start Date Expiration Date V isits Requested Visits Authorized [id number] Pending Review 10/30/2023 11/28/2024 1 1 [facility] Encounter Details Date Type Department Care Team (Late st Contact Info) Description 10/30/2023 Orders Only [facility] Neurosurgery [address] [facility] Advanced [facility] 6th [place] [address] [place] [address] Jeremy Mojica MD [address] [facility] [address] [place] [address] SDH (subdural hematoma) (HCC) (Primary Dx) Social History Tobacco Use Types Packs/Day Years Used Date Smoking Tobacco: Former Cigarettes 1 11 0 11/05/1968 - 11/05/1979 Passive Smoke Exposure: Past Smokeless Tobacco: Never Alcohol Use Standard Drinks/Week Comments Yes 14 (1 standard drink = 0.6 oz pu re alcohol) social C Utilities Answer Date Recorded In the past 12 months has [employer], gas, oil, or water [employer] threatened to shut off services in [...] week 10/31/2023 How often do you attend [facility] or sabianism services? Never 10/31/2023 Do you belong to [...] slept in a retirement (including now)? 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
--- OUTSIDE RECORDS SUMMARY | 2024-11-05 23:01 | XMS_ITS | Encounter Summary ---
Author Organization [facility] Address [address] [place] [address] Phone Care Team Providers Care Pr Manager Name Role Phone Rl Medina DO Primary Care Provider Marlen Gray RN Unavailable [phone] Reason for Visit * Reason Onset Date Comments Update 11/06/2023 Encounter Details Date Type Department Care Team (Late st Contact Info) Description 11/06/2023 Telephone [facility] Orthopaedic Surgery [address] [facility] 6th [place] [address] [place] [address] Marcial Vu Jr., MD [address] [facility] [address] [place] [address] Update Social History Tobacco Use Types Packs/Day Years Used Date Smoking Tobacco: Former Cigarettes 1 11 0 11/05/1968 - 11/05/1979 Passive Smoke Exposure: Past Smokeless Tobacco: Never Alcohol Use Standard Drinks/Week Comments Yes 14 (1 standard drink = 0.6 oz pu re alcohol) social C Utilities Answer Date Recorded In the past 12 months has [employer], gas, oil, or water [employer] threatened to shut off services in your [...] attend chur ch or mosque services? Never 10/31/2023 Do you belong to [...] slept in a mcfp (including now)? 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 Pt and in agreement with plan. SWITCHER * Telephone Encounter - Galina Franco RN - 11/06/2023 10:20 AM YARD SWITCHER Received call from pt's , Val, with [...] has become slightly more groggy again but aVl is only givingpt the flexaril when needed. Per Val, pt does not have chest tightness or shortness of breath at this time. Informed Val that I will update Dr. Vu on pt's medication change and will contact pt/ Val again if he has additional recommendations or concerns. Pt or Cynda to also call back withadditional questions or concerns. Val in agreement with plan. SWITCHER documented in this encounter Plan of Treatment Not on file documented as of this encounter Visit Diagnoses Not on filedocumented in this encounter Care Teams Pr Manager Relationship Specialty Start Date End Date Rl Medina DO [address] [place] [address] PCP - General 08/09/17 05/25/24 Marlen Gray RN [address] [facility] [address] [place] [address] SHOP Outpatient Vault Custodian 10/31/23 11/15/23 documented as of this encounter
--- OUTSIDE RECORDS SUMMARY | 2024-11-05 23:01 | XMS_ITS | Encounter Summary ---
Author Organization [facility] Address [address] [place] [address] Care Team Providers Care Professional Application Designer Name Role Phone Rl Medina DO Primary Care Provider Em Witt RN Unavailable [phone] Reason for Referral * Consultation (Routine) - Closed Specialty Diagnoses / Procedures Referred By Manisha gale Referred To Contact Neurology Diagnoses Seizures, generalized convulsive (HCC) Hayder Vu Jr., MD [address] [facility] [address] [place] [address] Phone: tel: fax: [facility] Epilepsy [address] 6th [place] [address] [place] [address] Phone: tel: fax: Referral ID Status Reason Start Date Expiration Date V isits Requested Visits Authorized [id number] Closed Specialty Services Required 10/25/2023 11/23/2024 1 1 Question Answer Please select the performing region: [facility] (All Locations) [167] # of visits: 1 Comments Please schedule patient for follow up appointment. Section: Epilepsy Provider: First available Time Frame: First available Schedule with Transition of Care Clinic: No MANAGER Reason for Visit * Reason Comments Urinary Problem * Auth/Cert Specialty Diagnoses / Procedures Referred By Manisha gale Referred To Contact Diagnoses Ureteral colic Procedures na Referral ID Status Reason Start Date Expiration Date Visits Re quested Visits Authorized [id number] 1 1 Encounter Details Date Type Department Care Team (Latest Contact Info) Description 10/12/2023 6:25 PM CHEF MANAGER - 10/30/2023 4:07 PM CHEF MANAGER Hospital Encounter [facility] [address] [place] [address] Rafael Cowan MD [address] [place] [address] Delvin Harrington MD [address] [place] [address] Paula Medina MD [address] [place] [address] Marquise Lim MD [address] [place] [address] Jimenez Henao MD [address] [place] [address] Pipe Moseley MD [address] [place] [address] Hayder Vu Jr., MD [address] [facility] [address] [place] [address] Ureteral colic (Primary Dx); Hydronephrosis with urinary [...] attend chur ch or congregation services? 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 Not on file Not on file Not on file documented as of this encounter Last Filed Vital Signs Vital Sign Reading Time Taken Comments Blood Pressure 141/82 10/30/2023 11:40 AM CHEF MANAGER Pulse 96 10/30/2023 11:35 AM CHEF MANAGER Temperature 36.5 ??C (97.7 ??F) 10/30/2023 11:[address] Respiratory Rate 18 10/30/2023 11:35 AM CHEF MANAGER Oxygen Saturation 98% 10/30/2023 11:40 AM CHEF MANAGER Inhaled Oxygen Concentration - - Weight 88.6 kg (195 lb 5.2 oz) 10/23/2023 10:35 PM CHEF MANAGER Height 172.7 cm (5' 8 ) 10/13/2023 4:15 AM CHEF MANAGER Body Mass Index 29.7 10/13/2023 4:15 AM CHEF MANAGER documented in this encounter Discharge Summaries * Rafael Rodriguez NP - 10/30/2023 1:19 PM CST Images from the original note were not included. Spine Inpatient Discharge Summary Admitting Provider: Hayder Vu MD Discharge Provider: Hayder Vu Fo* Primary Care Physician at Discharge: Rl Medina DO [phone] Admission Date: 10/12/2023 Discharge Date: 10/30/2023 Primary [...] URO BW MOB4 JORDAN 12/24/2023 2:20 PM [facility] BCT3 [facility] N CT [facility] Main IMG 12/24/2023 3:30 PM Carrie Jerez, OPERATING COST CLERK SPINE [id number] NS Chem/LFT Lab History Latest [...] 1 tablet (10 mg total) by mouth rag cutting machine feeder before breakfast For: inflammation of the nose due to an allergy Commonly known as: ZyrTEC cholecalciferol 5,000 unit capsule Take 1 capsule (5,000 Units total) by mouth every morning For: low vitamin D levels Commonly known as: VITAMIN D-3 coenzyme Q10 100 mg capsule Take 1 capsule (100 mg total) by mouth rag cutting machine feeder before breakfast cyclobenzaprine 5 mg tablet Take [...] mg capsule Take 1 tablet by mouth rag cutting machine feeder before breakfast For: Supplement gabapentin 300 mg [...] says it's OK. *Do not do any lace paper machine operator that cause you to twist, push [...] to previous diet Contact Information for Follow-ups [facility] (All Locations) Next Steps: Follow up Comments: Please schedule patient for follow up appointment. Section: Epilepsy Provider: First available Time Frame: First available Schedule with Transition of Care Clinic: No Questions: Please select the performing region: [facility] (All Locations) # of visits: 1 Referral Status: Pending Coordinator Review [facility] Care Services Specialty: Home Health and Hospice [address] [address] Next Steps: Follow up Questions: Service Line: [...] waterproof dressing while showering. Discharge Wound Type: Stitches/Norris -Stitches/annika will be removed at your next [...] Hayder Vu MD at 10/31/2023 3:37 PM CHEF MANAGER MANAGER MANAGER MANAGER documented in this encounter Discharge Instructions * Discharge Instructions* Rafael Rodriguez NP - 10/30/2023 10:21 AM CHEF MANAGER Thoracic/Lumbar Spinal Fusion Post-Operative Instructions Questions: ?? For any post-operative questions, please contact Dr. Horace Mojica???s nurse, at [phone] via Spacebikini. Galina will view and respond to your Spacebikini questions sent to Dr. Vu. Wound Care: [...] you upon discharge. Please call Galina at [phone] if unable to keep appointment. Nov 09, 2023 11:[address] Rl Medina Post-hospitalization appointment Nov 12, 2023 9:20 AM New with Hayder Vu MD [facility] Orthopaedic Surgery ( ORTHOPEDIC SURGERY) [address] 6th [address] [facility] [address] Dec 03, 2023 1:20 PM Return with Hayder Vu MD [facility] Orthopaedic Surgery (WOOD ORTHOPEDIC SURGERY) [address] [facility] [address] [facility] [phone] Dec 13, 2023 1:20 PM Return with Pan Irene MD [facility] Urology (WOOD SURGERY) [address] [facility] Building [address] [facility] [phone] CALL [facility] NEUROLOGY FOR FOLLOW UP APPT WITH THE [facility] EPILEPSY DEPARTMENT [phone] Emergencies: SIGNS OF AN EMERGENT SITUATION INCLUDE-If [...] it is best that you return to [facility] for your emergent care. Please call the emergency exchange at [phone] or toll free any time of the day or night on the daysthe office is closed, so that the emergent care can be initiated for you. Please follow these instructions for emergency calls: -During business hours (Sunday through Sunday 8am-4:30 PM except for holidays), call [phone]. The profile saw setup operator will connect you with Dr. Vu???s nurse. Dr. Vu???s nurse reports all emergencies to Dr. Vu. -After business hours (after 4:30 PM and before 8:00am) you may call the Emergency Orthopaedic Exchange at [phone] or TOLL [phone]. The profile saw setup operator plant controller will contact Dr. Echeverria???s staff. IMPORTANT: Refills of medications need to be done during business hours-NO pain medication refills will be given over the phone after hours. Please call with any questions or concerns. We will be glad to assist you in any way during your recovery period. Dr. Vu???s Staff Galina Franco RN: [phone] MANAGER MANAGER MANAGER MANAGER MANAGER MANAGER documented in this encounter Medications [...] 1 tablet (10 mg total) by mouth rag cutting machine feeder before breakfast 4 cholecalciferol (VITAMIN D-3) 5,000 unit capsuleIndication s:Vitamin D Deficiency Take 1 capsule (5,000 Units total) by mouth every morning 4 coenzyme Q10 100 mg capsule Take 1 capsule (100 mg total) by mouth rag cutting machine feeder before breakfast 4 cyclobenzaprine (FLEXERIL) 5 mg [...] capsuleIndication s:Supplement Take 1 tablet by mouth rag cutting machine feeder before breakfast 4 gabapentin (NEURONTIN) 300 mg [...] Patient choice (Home Health/Hospice) list given to patient/senior outside sales representative? Not Applicable Residential Facility list given to patient/senior outside sales representative? Not Applicable IM letter completed with patient at bedside. Patient informed of the planned discharge date, the date the beneficiary's financial liability begins, the beneficiary's appeal rights, and how and when to initiate an appeal. Patient provided copy of IM letter, IM letter placed in unit's designated medical record bin to be uploaded into patient's chart. Nathalie Herrera, CLAIRE, RN MANAGER * Nathalie Herrera RN - 10/30/2023 9:08 AM CST 10/30/23 0908 Communications Important Message from Medicare notice given to patient? Not Applicable M[place]ALL letter given? Not Applicable Patient choice (Home Health/Hospice) list given to patient/senior outside sales representative? Yes Residential Facility list given to patient/senior outside sales representative? Not Applicable Fiduciary Responsibility Patient/Designated decision maker was informed of [facility] fiduciary relationship as necessary Hotel Security Officer noted patient has been recommended for home heatlh by PT/OT. Hotel Security Officer met with thepatient at bedside to discuss recommendations by therapy and to work on a potential discharge disposition plan. Hotel Security Officer provided education to patient on therapy recommendations and home health services. Patient reported being interested in home health. assembly manager provided a home health list to patient. Patient selected the following choices (preference order): Residential ([facility]) Home Health [facility] Health assembly manager sent out referrals via ECIN. CM awaiting acceptance from a home health agency and [facility] to work on discharge planning with patient [...] treatment team and contact the PT or LAST DIPPER currently assigned to this patient. If a physical therapy clinician is not assigned to this patient, please call [phone]. 10/30/23 8090 PT Last Visit Session Type Treatment (and [...] SPV via logroll - ADEQUATE FOR DISCHARGE MANAGER * Nasir Manzanares MD - 10/30/2023 6:38 [...] BP pends, Dispo pending home with setup [facility] today Objective Vitals: 24hr Min/Max: [...] For susceptibility results, refer to accession number [id number] on the urine culture from 10/11/23 MICROBIOLOGY [...] Manzanares M.D. Department of Orthopaedic Surgery, PGY-3 [facility] [place] [facility] Please use [email or web address] to page/call the appropriate Orthopaedic Surgery Team/Resident if questions or concerns Please call with questions during daytime. See below for overnight issues. If you know the resident's name on the appropriate orthopaedic surgery team, please use [email or web address] to page resident directly. If questions arise and the appropriate resident can't be reached or you are calling overnight, please contact [phone] ([place]- 7:30 PM - 6:30 AM - Floor Resident) or [phone] (24 hours/day - Consult Resident) Cosigned by Hayder Vu MD at 11/06/2023 6:43 PM CHEF MANAGER MANAGER MANAGER * Nasir Manzanares MD - 10/29/2023 1:32 PM CST Brief Ortho Progress Note: I did not personally visualize the drain tip after it was inadvertantly removed last night. However, per report from shift superintendent, the drain tip looked good and entire drain was removed. Nasir Manzanares MD Orthopaedic Surgery PGY2 MANAGER MANAGER * Artie Real MD PhD - 10/29/2023 [...] non-contrast head CT. Responsible Team Darrian Bone ([phone]) Artie Real ([phone]) Hira Segura (Chief) For any questions or concerns, please contact the nurse practitioner signed in to the chart. If youare unable to reach them, you may contact the residents as listed. If it is after 6pm or you are unable to reach the OPERATING COST CLERK or resident team, please page the Neurosurgery Call Pager at [phone]. Note created by Artie Real MD PhD on 10/29/2023 at 7:20 AM. Cosigned by Gen Murray MD at 10/29/2023 4:52 PM CHEF MANAGER MANAGER MANAGER * Nasir Manzanares MD - 10/29/2023 7:18 [...] For susceptibility results, refer to accession number [id number] on the urine culture from 10/11/23 MICROBIOLOGY [...] Manzanares M.D. Department of Orthopaedic Surgery, PGY-3 [facility] Please use Cheezburger to page/call the appropriate Orthopaedic Surgery Team/Resident if questions or concerns Please call with questions during daytime. See below for overnight issues. If you know the resident's name on the appropriate orthopaedic surgery team, please use Cheezburger to page resident directly. If questions arise and the appropriate resident can't be reached or you are calling overnight, please contact [phone] ([facility] 7:30 PM - 6:30 AM - Floor Resident) or [phone] (24 hours/day - Consult Resident) Cosigned by Hayder Vu MD at 11/06/2023 6:43 PM CHEF MANAGER MANAGER MANAGER * Shane Bowen OT - 10/28/2023 11:09 [...] not assigned to this patient, please call [phone]. 10/28/23 9755 General Session Type Treatment OT Received On [...] OT OT - OK to Discharge No MANAGER * Carey Hein, PT - 10/28/2023 10:00 [...] treatment team and contact the PT or LAST DIPPER currently assigned to this patient. If a physical therapy clinician is not assigned to this patient, please call [phone]. 10/28/23 1000 PT Last Visit Session Type [...] 11/04/23 -- Goal Details: SPV with WW MANAGER * Nasir Manzanares MD - 10/28/2023 8:32 [...] For susceptibility results, refer to accession number [id number] on the urine culture from 10/11/23 MICROBIOLOGY [...] Manzanares M.D. Department of Orthopaedic Surgery, PGY-3 [facility] [place]/[facility] Please use Cheezburger to page/call the appropriate Orthopaedic Surgery Team/Resident if questions or concerns Please call with questions during daytime. See below for overnight issues. If you know the resident's name on the appropriate orthopaedic surgery team, please use [email or web address] to page resident directly. If questions arise and the appropriate resident can't be reached or you are calling overnight, please contact [phone] (Sun- 7:30 PM - 6:30 AM - Floor Resident) or [phone] (24 hours/day - Consult Resident) Cosigned by Hayder uV MD at 11/06/2023 6:43 PM CHEF MANAGER MANAGER MANAGER * Shane Bowen, OT - 10/27/2023 10:26 [...] not assigned to this patient, please call [phone]. 10/27/23 1026 General Session Type Treatment OT [...] task) LE Dressing: Equipment Utilized Sock aid;Dressing stick;Lunch Truck Operator Toileting Toileting: Where assessed Toilet Toileting: Level [...] -- Reviewed By Ana Hampton RN 10/26/23 8703 Nathen Maharaj RN 10/24/23 1921 MANAGER * Nasir Manzanares MD - 10/27/2023 8:02 [...] For susceptibility results, refer to accession number [id number] on the urine culture from 10/11/23 MICROBIOLOGY [...] Manzanares M.D. Department of Orthopaedic Surgery, PGY-3 [facility] [place]/[facility] Please use Cheezburger to page/call the appropriate Orthopaedic Surgery Team/Resident if questions or concerns Please call with questions during daytime. See below for overnight issues. If you know the resident's name on the appropriate orthopaedic surgery team, please use Cheezburger to page resident directly. If questions arise and the appropriate resident can't be reached or you are calling overnight, please contact [phone] ([place] [place]- 7:30 PM - 6:30 AM - Floor Resident) or [phone] (24 hours/day - Consult Resident) Cosigned by Hayder Vu MD at 11/06/2023 6:43 PM CHEF MANAGER MANAGER MANAGER * Ana Hampton RN - 10/26/2023 5:44 PM CST Pt transferred to room [address] [place] [address] Face to face report given to annetta MACKEY. belongings transferred with pt. Heparin gtt to be d/c. Labs obtained prior to transfer. MANAGER * Luana Singh RD - 10/26/2023 3:07 [...] Adult Diet Regular Diet effective now Question: ([facility]) Diet type Answer: Regular 10/25/23 0532 10/24/23 2100 Bedtime snack At bedtime Comments: If bedtime BG is less than 100mg/dl, give patient a 15 gram carbohydrate snack. 10/24/23 0353 Assessment / Impression: [place] [address] [place]. Spoke to pt and at bedside. Reports pt was eating well LAST DIPPER, appetite reduced following his surgery but has [...] RD following. Joleen Singh, MS, RD, LD [facility] [phone] On-call/weekend: [phone] MANAGER * Aston Tran PTA - 10/26/2023 2:05 PM CST 10/26/23 1405 PT Last Visit PT Missed Visit Reason Family declined;Other (comment) (Pt's has politely declined PT at this time citing increased pain and fatigue following prior OT session. Pt's requests that PT staff follow-up in AM.) Recommendation/Plan PT - Next Appointment 10/27/23 MANAGER * Shane Bowen OT - 10/26/2023 9:53 [...] not assigned to this patient, please call [phone]. 10/26/23 0903 General Session Type Treatment OT Received On [...] for task) LE Dressing: Equipment Utilized Sock aid;Lunch Truck Operator;Dressing stick Toileting Toileting: Where assessed Chair Toileting: [...] -- Reviewed By Nathen Maharaj RN 10/24/231800 MANAGER * Nasir Manzanares MD - 10/26/2023 7:08 [...] For susceptibility results, refer to accession number [id number] on the urine culture from 10/11/23 MICROBIOLOGY [...] Manzanares M.D. Department of Orthopaedic Surgery, PGY-3 [facility] [place]/[facility] Please use Cheezburger to page/call the appropriate Orthopaedic Surgery Team/Resident if questions or concerns Please call with questions during daytime. See below for overnight issues. If you know the resident's name on the appropriate orthopaedic surgery team, please use Cheezburger to page resident directly. If questions arise and the appropriate resident can't be reached or you are calling overnight, please contact [phone] ([facility] 7:30 PM - 6:30 AM - Floor Resident) or [phone] (24 hours/day - Consult Resident) Cosigned by Hayder Vu MD at 10/26/2023 1:04 PM CHEF MANAGER MANAGER MANAGER MANAGER Associated attestation - Hayder Vu Jr., MD - 10/26/2023 1:04 PM CHEF MANAGER Attending Attestation I have seen and [...] questions were answered. Hayder Vu Jr., MD Card Grader Department of Orthopaedic Surgery Division of Spine Surgery [facility], [place] Pharm Tech done by [employer]; therefore, variances and inaccuracies may occur. * Tia Nolan, OPERATING COST CLERK - 10/25/2023 9:09 PM CSTAssociated Order(s): Critical [...] Subtle white matter hypoattenuation with loss of alvraado-white differentiation the left frontal pole. If there [...] and agrees with it. Electronically signed by: lCemente Mathew M.D. Assessment/Plan Principal Problem: Hydronephrosis with [...] been reviewed with attending, Dr. Adis Nolan, [facility] Critical Care Performed by: Tia Nolan [...] plan with the patient's team and other medical/cloud consultant staff. 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 Otherwise no c/f falls prior Prior Function Comments: Patient reports symptoms began in 07/2023; however, LAST DIPPER was IND with all I/ADLs and was [...] name and address after me: Hayder Reddy [address] [place] [address] Without looking at the clock, tell me [...] not assigned to this patient, please call [phone]. MANAGER * Alisa Nath, PT - 10/25/2023 8:30 [...] treatment team and contact the PT or LAST DIPPER currently assigned to this patient. If a physical therapy clinician is not assigned to this patient, please call [phone]. 10/25/23 0830 PT Last Visit Session Type [...] roll Reviewed By Nathen Maharaj RN 10/24/231800 MANAGER * Nasir Manzanares MD - 10/25/2023 7:53 [...] For susceptibility results, refer to accession number [id number] on the urine culture from 10/11/23 MICROBIOLOGY [...] Manzanares M.D. Department of Orthopaedic Surgery, PGY-3 [facility] [place]/[facility] Please use Cheezburger to page/call the appropriate Orthopaedic Surgery Team/Resident if questions or concerns Please call with questions during daytime. See below for overnight issues. If you know the resident's name on the appropriate orthopaedic surgery team, please use Cheezburger to page resident directly. If questions arise and the appropriate resident can't be reached or you are calling overnight, please contact [phone] ([facility] 7:30 PM - 6:30 AM - Floor Resident) or [phone] (24 hours/day - Consult Resident) Cosigned by Hayder Vu MD at 10/26/2023 12:58 PM CHEF MANAGER MANAGER MANAGER * Luana Brady NP - 10/25/2023 7:04 [...] Avel Bourne MD at 10/26/2023 5:50 PM CHEF MANAGER MANAGER MANAGER * Hayden Barton MD - 10/24/2023 6:26 [...] EKG/Min 82 BPM Atrial Rate 82 BPM MA-Interval (MSEC) 166 ms QRS-Interval (MSEC) 78 ms QT-Interval (MSEC) 384 ms QTc 448 ms P [place] 34 degrees R [place] -30 degrees T [place] -13 degrees Diagnosis Normal sinus rhythm [...] Arceo Jr., MD at 10/25/2023 3:43 AM CHEF MANAGER MANAGER MANAGER * Javad Sow, PT - 10/24/2023 12:03 PM CST Physical Therapy 10/24/23 1203 General PT Missed Visit Reason Family declined (request to allow patient to sleep) MANAGER * Dari Dickens [facility] - 10/24/2023 10:51 AM CST Patient profile has been reviewed by clinical pharmacy aide on 10/24/2023. Case reviewed on rounds with [...] capsule 300 mg, 300 mg, oral, Q8H [facility], Amos Langley NP glucagon injection [...] injection 0-10 Units, 0-10 Units, subcutaneous, Q4H [facility] Shawn Poya, MD, 2 Units at 10/24/23 0451 levETIRAcetam (KEPPRA) 1,000 mg/100 mL in sodium chloride (premix) 1,000 mg, 1,000 mg, intravenous,Q12H [facility] Nneoma Stephanie, MD, 1,000 mg at 10/24/23 0936 [Held by Provider] multivit oolucnqe-logy-XQ-calcium (THERA-M) tablet 1 tablet, 1 tablet, oral, [...] NP Gabrielle Gibson, RPh, PharmD, BCPS, BCCCP MANAGER * Rob Langley NP - 10/24/2023 6:48 [...] name Trop I hs Called/Read Back Edwige Proras Credentials RN Called By SB ECG 12 lead Collection Time: 10/24/23 3:44 AM Result Value Ref Range Ventricular Rate EKG/Min 82 BPM Atrial Rate 82 BPM MA-Interval (MSEC) 166 ms QRS-Interval (MSEC) 78 ms QT-Interval (MSEC) 384 ms QTc 448 ms P [place] 34 degrees R [place] -30 degrees T [place] -13 degrees Diagnosis Normal sinus rhythm [...] plan with the ICU team and other medical/cloud consultant staff, making frequent assessments and decisions [...] Avel Bourne MD at 10/24/2023 6:17 PM CHEF MANAGER MANAGER MANAGER MANAGER * Ata Marquez MD - 10/24/2023 5:56 [...] Edited by: Oneyda Foley NP at 10/23/2023 6773 Objective Vitals: 24hr Min/Max: Temp Min: 36.5 [...] 5/5 5/5 Wrist flexion (C7) 4/5 5/5 Marketing Assistant Retail Division (C8) 4/5 5/5 Interosseous of hand (T1) [...] For susceptibility results, refer to accession number [id number] on the urine culture from 10/11/23 MICROBIOLOGY [...] Marquez M.D. Department of Orthopaedic Surgery, PGY-3 [facility] [place]/[facility] Please use Che[employer]ger to page/call the appropriate Orthopaedic Surgery Team/Resident if questions or concerns Please call with questions during daytime. See below for overnight issues. If you know the resident's name on the appropriate orthopaedic surgery team, please use Cheez[employer]ger to page resident directly. If questions arise and the appropriate resident can't be reached or you are calling overnight, please contact [phone] ([facility]- 7:30 PM - 6:30 AM - Floor Resident) or [phone] (24 hours/day - Consult Resident) Cosigned by Hayder Vu MD at 10/24/2023 1:48 PM CHEF MANAGER MANAGER MANAGER Associated attestation - Hayder Vu Jr., MD - 10/24/2023 1:48 PM CHEF MANAGER Attending Attestation I have seen and [...] questions or concerns. Hayder Vu Jr., MD Card Grader Department of Orthopaedic Surgery Division of Spine Surgery [facility] Medicine [place], [place] Pharm Tech done by [employer]; therefore, variances and [...] of spine with ortho. Pipe Moseley MD MANAGER * Luciana Dickerson, PT - 10/23/2023 8:28 AM CST Physical Therapy 10/23/23 0828 General PT Missed Visit Reason Other (comment) (Per medical chart, pending OR today with ortho spine. Will follow up once post-op) MANAGER * Nasir Manzanares MD - 10/23/2023 6:14 [...] For susceptibility results, refer to accession number [id number] on the urine culture from 10/11/23 MICROBIOLOGY [...] the appropriate orthopaedic surgery team, please use [email or web address] to page resident directly. If questions arise and the appropriate resident can't be reached or you are calling overnight, please contact [phone] ([facility]- 7:30 PM - 6:30 AM - Floor Resident) or [phone] (24 hours/day - Consult Resident) Cosigned by Hayder Vu MD at 10/23/2023 4:10 PM CHEF MANAGER MANAGER MANAGER Associated attestation - Hayder Vu Jr., MD - 10/23/2023 4:10 PM CHEF MANAGER Attending Attestation I have seen and [...] tibialis anterior, EHL. Hayder Vu Jr., MD Card Grader Department of Orthopaedic Surgery Division of Spine Surgery [facility], [place] Pharm Tech done by [employer]; therefore, variances and inaccuracies may occur. * Jimenez Henao MD - 10/22/2023 3:29 PM CST Daily Progress Note Division of Hospital Medicine Name: Hira Evans : 1950 Today's Date: October 22, 2023 Age: 73 y.o. male Admission: 10/12/2023 Bed: [id number] LOS: 9 days Subjective Chief complaint: back [...] 33 minutes which was spent performing a jlok-dx-ofxw encounter and personally completing the provider-level activities documented in the note. This includes time spent prior to the visit and after the visit in direct care of the patient. This time does not include time spent in any separately reportable services. Jimenez Henao MD MANAGER * Zehra Cook MD - 10/22/2023 6:43 [...] Edited by: Zehra Cook MD at 10/22/2023 0656 Objective Vitals: 24hr Min/Max: Temp Min: 36.1 [...] For susceptibility results, refer to accession number [id number] on the urine culture from 10/11/23 MICROBIOLOGY [...] the appropriate orthopaedic surgery team, please use [email or web address] to page resident directly. If questions arise and the appropriate resident can't be reached or you are calling overnight, please contact [phone] ([facility]- 7:30 PM - 6:30 AM - Floor Resident) or [phone] (24 hours/day - Consult Resident) Cosigned by Hayder Vu MD at 10/23/2023 7:36 AM CHEF MANAGER MANAGER MANAGER * Jimenez Henao MD - 10/21/2023 10:51 AM CST Daily Progress Note Division of Hospital Medicine Name: Hira Evans : 1950 Today's Date: October 21, 2023 Age: 73 y.o. male Admission: 10/12/2023 Bed: [id number] LOS: 8 days Subjective Chief complaint: back [...] 28 minutes which was spent performing a llbx-ue-bktg encounter and personally completing the provider-level activities documented in the note. This includes time spent prior to the visit and after the visit in direct care of the patient. This time does not include time spent in any separately reportable services. Jimenez Henao MD MANAGER * Jimenez Henao MD - 10/20/2023 2:55 PM CST Daily Progress Note Division of Hospital Medicine Name: Hira Evans : 1950 Today's Date: October 20, 2023 Age: 73 y.o. male Admission: 10/12/2023 Bed: [id number] LOS: 7 days Subjective Chief complaint: back [...] 28 minutes which was spent performing a lnny-xn-lgue encounter and personally completing the provider-level activities documented in the note. This includes time spent prior to the visit and after the visit in direct care of the patient. This time does not include time spent in any separately reportable services. Jimenez Henao MD MANAGER * Belen Hennessy PA - 10/19/2023 1:59 [...] Belen Hennessy PA-C Interventional Radiology Available via [employer] M-F 7 AM until 3 PM IR call pager M-F after 3 PM or on weekends If the patient does not already have a follow-up appointment arranged, please place order and then please call the [employer] front office specialist at between 7:30 AM and 4:00 PM. MANAGER * Jimenez Henao MD - 10/19/2023 12:50 PM CST Daily Progress Note Division of Hospital Medicine Name: Hira Evans : 1950 Today's Date: October 19, 2023 Age: 73 y.o. male Admission: 10/12/2023 Bed: [id number] LOS: 6 days Subjective Chief complaint: back [...] 50 minutes which was spent performing a qgpp-dh-vubq encounter and personally completing the provider-level activities documented in the note. This includes time spent prior to the visit and after the visit in direct care of the patient. This time does not include time spent in any separately reportable services. Jimenez Henao MD MANAGER * Jimenez Henao MD - 10/18/2023 5:15 PM CST Daily Progress Note Division of Hospital Medicine Name: Hira Evans : 1950 Today's Date: October 18, 2023 Age: 73 y.o. male Admission: 10/12/2023 Bed: [id number]/[id number] LOS: 5 days Subjective Chief complaint: back [...] 55 minutes which was spent performing a xwsu-li-bpnl encounter and personally completing the provider-level activities documented in the note. This includes time spent prior to the visit and after the visit in direct care of the patient. This time does not include time spent in any separately reportable services. Jimenez Henao MD MANAGER * Osroio Calle MD - 10/18/2023 6:54 AM CST [...] For susceptibility results, refer to accession number [id number] on the urine culture from 10/11/23 MICROBIOLOGY [...] the appropriate orthopaedic surgery team, please use [email or web address] to page resident directly. If questions arise and the appropriate resident can't be reached or you are calling overnight, please contact [phone] ([facility]- 7:30 PM - 6:30 AM - Floor Resident) or [phone] (24 hours/day - Consult Resident) Cosigned by Hayder Vu MD at 10/18/2023 12:31 PM CHEF MANAGER MANAGER MANAGER * Michelle Harris PA - 10/17/2023 3:10 [...] Michelle Harris PA-C Interventional Radiology Available via [employer] M-F 7 AM until 3 PM. IR call pager M-F after 3 PM or on weekends. If the patient does not already have a follow-up appointment arranged, please place order and then please call the [employer] front office specialist at between 7:30 AM and 4:00 PM. MANAGER * Jimenez Henao MD - 10/17/2023 2:46 PM CST Daily Progress Note Division of Hospital Medicine Name: Hira Evans : 1950 Today's Date: October 17, 2023 Age: 73 y.o. male Admission: 10/12/2023 Bed: [id number]/[id number] LOS: 4 days Subjective Chief complaint: back [...] 60 minutes which was spent performing a rthr-le-yhfs encounter and personally completing the provider-level activities documented in the note. This includes time spent prior to the visit and after the visit in direct care of the patient. This time does not include time spent in any separately reportable services. Jimenez Henao MD MANAGER * Luciana Dickerson, PT - 10/17/2023 2:21 [...] POC Prior Function Prior Function Level of Wilcox: Independent functional transfers, Independent with ambulation Lives With: Spouse Receives Help From: Spouse/Significant other (molding manager assist as needed) Fall within the last [...] all mobility to allow return to PLOF MANAGER * Hayden Youngblood MD - 10/17/2023 8:30 [...] For susceptibility results, refer to accession number [id number] on the urine culture from 10/11/23 MICROBIOLOGY [...] the appropriate orthopaedic surgery team, please use [email or web address] to page resident directly. If questions arise and the appropriate resident can't be reached or you are calling overnight, please contact [phone] ([facility]- 7:30 PM - 6:30 AM - Floor Resident) or [phone] (24 hours/day - Consult Resident) Cosigned by Hayder Vu MD at 10/17/2023 8:47 AM CHEF MANAGER MANAGER MANAGER * Hayder Vu MD - 10/17/2023 7:19 [...] questions or concerns. Hayder Vu Jr., MD Card Grader Department of Orthopaedic Surgery Division of Spine Surgery [facility] Medicine [place], [place] MANAGER MANAGER * Jimenez Henao MD - 10/16/2023 12:31 PM CST Daily Progress Note Division of Hospital Medicine Name: Hira Evnas : 1950 Today's Date: October 16, 2023 Age: 73 y.o. male Admission: 10/12/2023 Bed: [id number] LOS: 3 days Subjective Chief complaint: back [...] 80 minutes which was spent performing a utqw-ja-cnsb encounter and personally completing the provider-level activities documented in the note. This includes time spent prior to the visit and after the visit in direct care of the patient. This time does not include time spent in any separately reportable services. Jimenez Henao MD MANAGER * Collin Barnes MD - 10/16/2023 8:24 [...] 8 hours. -Continue to monitor drainage output. MANAGER * Hayden Youngblood MD - 10/16/2023 6:46 [...] For susceptibility results, refer to accession number [id number] on the urine culture from 10/11/23 MICROBIOLOGY [...] the appropriate orthopaedic surgery team, please use [email or web address] to page resident directly. If questions arise and the appropriate resident can't be reached or you are calling overnight, please contact [phone] ([facility]- 7:30 PM - 6:30 AM - Floor Resident) or [phone] (24 hours/day - Consult Resident) Cosigned by Hayder Vu MD at 10/16/2023 7:19 AM CHEF MANAGER MANAGER MANAGER * Marquise Lim MD - 10/15/2023 8:52 AM CST Daily Progress Note Division of Hospital Medicine Name: Hira Evans : 1950 Today's Date: October 15, 2023 Age: 73 y.o. male Admission: 10/12/2023 Bed: [id number]/[id number] LOS: 2 days Subjective Chief complaint: back [...] 80 minutes which was spent performing a cfpl-lu-yqyv encounter and personally completing the provider-level activities documented in the note. This includes time spent prior to the visit and after the visit in direct care of the patient. This time does not include time spent in any separately reportable services. Marquise Lim MD MANAGER * Ana Alfaro MD - 10/15/2023 7:20 [...] For susceptibility results, refer to accession number [id number] on the urine culture from 10/11/23 Exam: Left PCN site c/d/i. Assessment and Plan: 73-year old man with partially obstructing left ureteral stone post left PCN placement in 10/14/2023. Continue to flush 10 mL normal saline every 8 hours. Continue to monitor drainage output. 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 If questions arise and the appropriate resident can't be reached or you are calling overnight, please contact [phone] ([facility] 7:30 PM - 6:30 AM - Floor Resident) or [phone] (24 hours/day - Consult Resident) Cosigned by Hayder Vu MD at 10/15/2023 8:54 AM CHEF MANAGER MANAGER MANAGER Associated attestation - Hayder Vu Jr., MD - 10/15/2023 8:54 AM CHEF MANAGER Attending Attestation I have seen and [...] of Mr. Evans. Hayder Vu Jr., MD Card Grader Department of Orthopaedic Surgery Division of Spine Surgery [facility] [place], [place] Pharm Tech done by [employer]; therefore, variances and [...] For susceptibility results, refer to accession number [id number] on the urine culture from 10/11/23 MICROBIOLOGY [...] the appropriate orthopaedic surgery team, please use [email or web address] to page resident directly. If questions arise and the appropriate resident can't be reached or you are calling overnight, please contact [phone] ([facility] 7:30 PM - 6:30 AM - Floor Resident) or [phone] (24 hours/day - Consult Resident) Cosigned by Hayder Vu MD at 10/15/2023 9:21 AM CHEF MANAGER MANAGER MANAGER MANAGER Associated attestation - Hayder Vu Jr., MD - 10/15/2023 9:21 AM CHEF MANAGER I agree with the resident's note with [...] Age: 73 y.o. male Admission: 10/12/2023 Bed: [id number] LOS: 1 days Subjective Chief complaint: fever+chills [...] 70 minutes which was spent performing a nwjz-lc-wmej encounter and personally completing the provider-level activities documented in the note. This includes time spent prior to the visit and after the visit in direct care of the patient. This time does not include time spent in any separately reportable services. Marquise Lim MD MANAGER * Marquise Lim MD - 10/13/2023 7:43 AM CST Daily Progress Note Division of Hospital Medicine Name: Hira Evans : 1950 Today's Date: October 13, 2023 Age: 73 y.o. male Admission: 10/12/2023 Bed: [id number] LOS: 0 days Subjective Chief complaint: Sepsis [...] : / Supplementary Attestation Marquise Lim MD MANAGER documented in this encounter H&P Notes [...] 1 tablet (10 mg total) by mouth rag cutting machine feeder before breakfast cholecalciferol (VITAMIN D-3) 5,000 unit capsule Take 1 capsule (5,000 Units total) by mouth every morning coenzyme Q10 100 mg capsule Take 1 capsule (100 mg total) by mouth rag cutting machine feeder before breakfast DILT-XR 240 mg 24 hr capsule Take 1 capsule (240 mg total) by mouth 2 (two) times a day 0 fish,bora,flax oils-om3,6,9no1 400-400-400 mg capsule Take 1 tablet by mouth rag cutting machine feeder before breakfast irbesartan (AVAPRO) 300 mg tablet [...] Arceo Jr., MD at 10/24/2023 5:52 AM CHEF MANAGER MANAGER MANAGER Associated attestation - Wilder Arceo Jr., MD - 10/24/2023 5:52 AM CHEF MANAGER Critical Care Time: I have spent 75 [...] plan with the ICU team and other medical/cloud consultant staff. Wilder Arceo Jr., MD * [...] for OR today from a medical standpoint. MANAGER MANAGER Source Note - Severo Merlos MD - 10/13/2023 5:00 AM CHEF MANAGER History and Physical Division of [facility] Medicine Name: Hira Evans : 1950 Today's Date: October 13, 2023 Age: 73 y.o. male Admit Date: 10/12/2023 Bed: [id number] LOS: 0 days Subjective Hira Evans is [...] 1 tablet (10 mg total) by mouth rag cutting machine feeder before breakfast cholecalciferol (VITAMIN D-3) 5,000 unit capsule Take 1 capsule (5,000 Units total) by mouth every morning coenzyme Q10 100 mg capsule Take 1 capsule (100 mg total) by mouth rag cutting machine feeder before breakfast DILT-XR 240 mg 24 hr capsule Take 1 capsule (240 mg total) by mouth 2 (two) times a day fish,bora,flax oils-om3,6,9no1 400-400-400 mg capsule Take 1 tablet by mouth rag cutting machine feeder before breakfast irbesartan (AVAPRO) 300 mg tablet [...] 60 minutes which was spent performing a eyyk-lc-tffr encounter and personally completing the provider-level activities documented in the note. This includes time spent prior to the visit and after the visit in direct care of the patient. This time does not include time spent in any separately reportable services. Severo Merlos MD MANAGER * Gabriel Bennett MD - 10/18/2023 9:06 AM CST I have reviewed the H&P, examined the patient, and endorse the findings as written. Plan of Care : Based on the above findings, I consider Hira Evans to be an acceptable risk for : Procedure(s): CYSTOSCOPY PYELOGRAM - RETROGRADE LITHOTRIPSY - LASER URETEROSCOPY MANAGER Source Note - Fredrick Mcneil MD - 10/12/2023 10:45 PM CHEF MANAGER Images from the original note were [...] to concerning symptoms, he was transferred to [facility] ED for further workup. Patient's reports [...] or concerns, please page Urology through the profile saw setup operator. Vero Tolentino MD 10/12/2023 MANAGER MANAGER MANAGER * Severo Merlos MD - 10/13/2023 5:00 AM CST History and Physical Division of [facility] Medicine Name: Hira Evans : 1950 Today's Date: October 13, 2023 Age: 73 y.o. male Admit Date: 10/12/2023 Bed: [id number] LOS: 0 days Subjective Hira Evans is [...] 1 tablet (10 mg total) by mouth rag cutting machine feeder before breakfast cholecalciferol (VITAMIN D-3) 5,000 unit capsule Take 1 capsule (5,000 Units total) by mouth every morning coenzyme Q10 100 mg capsule Take 1 capsule (100 mg total) by mouth rag cutting machine feeder before breakfast DILT-XR 240 mg 24 hr capsule Take 1 capsule (240 mg total) by mouth 2 (two) times a day fish,bora,flax oils-om3,6,9no1 400-400-400 mg capsule Take 1 tablet by mouth rag cutting machine feeder before breakfast irbesartan (AVAPRO) 300 mg tablet [...] 60 minutes which was spent performing a zvii-to-pwmd encounter and personally completing the provider-level activities documented in the note. This includes time spent prior to the visit and after the visit in direct care of the patient. This time does not include time spent in any separately reportable services. Severo Merlos MD MANAGER documented in this encounter Procedure Notes [...] plan with the patient's team and other medical/cloud consultant staff. This time was in addition to and separate from care provided by other practitioners on this day of service. MANAGER * Wilder Arceo Jr., MD - 10/24/2023 [...] plan with the ICU team and other medical/cloud consultant staff, making frequent assessments and decisions [...] hemorrhage, Acute pain/acute postoperative pain and Seizure Gyi-OL-Eidjgqvwy mycardial infarction (Non-STEMI) and Cardiac arrest Hypo- [...] spent time documenting in the medical record MANAGER * Wilder Arceo Jr., MD - 10/23/2023 [...] plan with the ICU team and other medical/cloud consultant staff, making frequent assessments and decisions [...] spent time documenting in the medical record MANAGER documented in this encounter Consult Notes * Yumiko Rome MD - 10/28/2023 9:48 AM CSTAssociated Order(s): IP CONSULT TO NEUROSURGERY Neurosurgery Consultation Patient: Hira Evans CSN: [id number] : 1950 Admission date: 10/12/2023 Length of [...] open L4-5 [facility] and [facility]ograft). Postprocedure, in [...] His , Neelima, can be reached at [phone] Family history: Reviewed and noncontributory. Physical Examination: [...] discussed with the chief resident and attending plant controller. The patient was evaluated within 30 minutes of consultation Yumiko Rome MD Cosigned by Jeremy Mojica MD at 10/30/2023 3:48 PM CHEF MANAGER MANAGER MANAGER MANAGER Associated attestation - Jeremy Mojica MD - 10/30/2023 3:48 PM CHEF MANAGER I have seen and examined the [...] 73 y.o. male Admit Date: 10/12/2023 Bed: [id number] LOS: 13 days Subjective HPI 73 year [...] 1 tablet (10 mg total) by mouth rag cutting machine feeder before breakfast cholecalciferol (VITAMIN D-3) 5,000 unit capsule Take 1 capsule (5,000 Units total) by mouth every morning coenzyme Q10 100 mg capsule Take 1 capsule (100 mg total) by mouth rag cutting machine feeder before breakfast DILT-XR 240 mg 24 hr capsule Take 1 capsule (240 mg total) by mouth 2 (two) times a day fish,bora,flax oils-om3,6,9no1 400-400-400 mg capsule Take 1 tablet by mouth rag cutting machine feeder before breakfast irbesartan (AVAPRO) 300 mg tablet [...] Medicine Consults will sign off. Please call [phone] for further questions. Viry Patterson MD Cosigned by Ryan London MD at 10/26/2023 5:20 PM CHEF MANAGER MANAGER MANAGER Associated attestation - Ryan London MD - 10/26/2023 5:20 PM CHEF MANAGER Attending Documentation I have seen and examined [...] mg/mL injection - ADS Override Pull multivit kdmlrxwb-jibl-ED-calcium (THERA-M) tablet 1 tablet 1 tablet oral [...] algorithm), available at http://www.shef.ac.uk/FRAX). Dictated by: Gypsy Pelleteir M.D. 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 Thank you for this consult. Neurology Consult Call Back: [phone] (senior phone). Please do nothesitate to contact us with any questions or concerns, and specify that this consult was staffed with consult team A. Zaheer Bennett MD, PHD Neurology Resident, PGY-2 10/24/2023 1:15 AM Cosigned by Steve Funk MD PhD at 10/24/2023 10:51 PM CHEF MANAGER MANAGER MANAGER MANAGER MANAGER Associated attestation - Steve Funk MD PhD - 10/24/2023 10:51 PM CHEF MANAGER I have seen and examined the [...] to concerning symptoms, he was transferred to [facility] ED for further workup. Patient's reports [...] or concerns, please page Urology through the profile saw setup operator. Vero Tolentino MD 10/12/2023 MANAGER MANAGER MANAGER * Hayden Youngblood MD - 10/12/2023 7:22 [...] 1 tablet (10 mg total) by mouth rag cutting machine feeder before breakfast Fidelia Perdue MD cholecalciferol (VITAMIN D-3) 5,000 unit capsule Take 1 capsule (5,000 Units total) by mouth every morning Fidelia Perdue MD coenzyme Q10 100 mg capsule Take 1 capsule (100 mg total) by mouth rag cutting machine feeder before breakfast Fidelia Perdue MD DILT-XR 240 mg 24 hr capsule Take 1 capsule (240 mg total) by mouth 2 (two) times a day 05/12/19 Fidelia Perdue MD fish,bora,flax oils-om3,6,9no1 400-400-400 mg capsule Take 1 tablet by mouth rag cutting machine feeder before breakfast Fidelia Perdue MD irbesartan (AVAPRO) [...] extension 5/5 5/5 Wrist flexion 5/5 5/5 Marketing Assistant Retail Division 5/5 5/5 Interosseous of hand 5/5 5/5 [...] M.D., Ph.D. Department of Orthopaedic Surgery, PGY-2 [facility] Please use [employer] to page/call the appropriate Orthopaedic Surgery Team/Resident if questions or concerns. Normal business hours: If you know the resident's name on the appropriate orthopaedic surgery team,please use the Directory Search at [employer] to page resident directly. If questions arise and the appropriate resident can't be reached or you are calling overnight, please contact [phone] ([facility] 7:30 PM - 6:30 AM - Floor Resident) or [phone] (24 hours/day - Consult Resident) Cosigned by Hayder Vu MD at 10/14/2023 10:41 PM CHEF MANAGER MANAGER MANAGER documented in this encounter Nursing Notes * Sherice Wilcox RN - 10/24/2023 1:21 AM CST Fredrick MACKEY [place] floor to [id number] in anticipation of admission to our unit.Post op, patient went to ICU. AN brought bag of patient belongings to current room 4401. MANAGER * Nolvia Gonzales RN - 10/23/2023 10:20 [...] Anesthesia at bedside tobring patient to ICU. MANAGER * Fredrick Sheffield RN - 10/23/2023 7:04 PM CST Patient belongings (blanket, jacket, shoes, mirror, shirt, pajama pants) brought to unit [address], where patient is transferring. Entire room searched for belongings, all belongings found in room brought up [place] [id number]. MANAGER * Frieda Cai RN - 10/18/2023 6:14 PM CST Patient went to surgery today and got a stent place, the catheter was changed during surgery. No drainage or leakage around the harris cath noted. MANAGER * Ad Parikh RN - 10/16/2023 3:01 PM CST Assumed care for patient at 1500. This Rn agrees with previous RN's assessment. Patient A&ox4 and resting in bed. Will continue to monitor. MANAGER * Adia Poole RN - 10/15/2023 7:44 [...] needs, and inagreement with bedside shift report. MANAGER documented in this encounter ED Notes * Justice Vivas RN - 10/12/2023 6:25 PM CST Bed: ED1-14 Expected date: Expected time: Means of arrival: Car Comments: Justice Vivas RN 10/12/23 1825 MANAGER * Amol Hargrove MD - 10/12/2023 6:22 [...] E coli. Patient was sent to the [facility] ED at the instruction of Dr. [...] of Care ED Course as of 10/12/23 1832 Time: 10/12 184 Comment: Attending physician assessment [...] Rafael Cowan MD at 10/14/2023 12:05 AM CHEF MANAGER MANAGER MANAGER Associated attestation - Rafael Cowan MD - 10/14/2023 12:05 AM CHEF MANAGER I have seen and examined the [...] spinal surgery on Sunday. Reports malodorous urine. MANAGER documented in this encounter Miscellaneous Notes * Provider Query - Hayder Vu MD - 10/30/2023 4:07 PM CHEF MANAGER Greetings Dr. Vu Please clarify if sepsis [...] the patient???s medical record. Sincerely, Boaz Harris [facility] Information Management MANAGER * Provider Query - Hayder Vu MD - 10/30/2023 4:07 PM CHEF MANAGER Greetings Dr. Vu, Both respiratory failure and [...] the patient???s medical record. Sincerely, Boaz Harris [facility] Information Management MANAGER * Plan of Care - Nathalie Herrera RN - 10/30/2023 2:38 PM CST [facility] Health unable to accept due to insurance. Referrals sent to remaining home health agencies that serve patient's zip code: [facility]---unable to accept due to staffing limitations [facility]---unable to accept due to staffing limitations [facility]---unable to accept due to insurance. [facility]--unable to accept due to staffing limitations [facility]--unable to accept due to insurance. At this time, all home health agency options have been exhausted. Unable to secure home health therapy. Called patient's spouse Phan to update. No further case management needs identified at this time MANAGER MANAGER MANAGER MANAGER * Plan of Care - Matilda Gonzales [...] Declined PRN pain med for trip home. MANAGER * Plan of Care - Nathalie Herrera RN - 10/30/2023 1:21 PM CST [facility] Health has accepted patient pending [...] to accept. Will contact patient's Cynda at [phone] if and when home health is secured. MANAGER * Plan of Care - Nathalie Herrera RN - 10/30/2023 9:29 AM CST [facility] unable to accept. MANAGER * Plan of Care - Suzanne Mendoza [...] health care needs will improve Outcome: Progressing MANAGER * Plan of Deny - Matilda Gonzales [...] up. EPC used for sacral chaffing. Several plant controller residents notified regarding drain which accidentally came out during care. MANAGER * Plan of Care - Suzanne Mendoza [...] Goal: Pain level will decrease Outcome: Progressing MANAGER * Plan of Care - Erick Melchor [...] 1610 by Erick Melchor RN Outcome: Progressing MANAGER * Plan of Care - Ritu Marin [...] pain meds. VS and drain output documented. MANAGER * Significant Event - Viry Patterson MD [...] Medicine Consults will sign off. Please call [phone] for further questions. Viry Patterson MD PGY3 Internal Medicine MANAGER * Assessment & Plan Note - Viry Patterson MD - 10/26/2023 5:11 PM CHEF MANAGER Associated Problem(s): Pulmonary embolism (HCC) Patient with new PE on CT PE 10/23. Tolerating heparin gtt. Likely provoked in setting of recent surgery. - Patient will need at least 3 months of anticoagulation, and can follow up with PCP for consideration of discontinuation - If no other surgical interventions planned at this time, can transition to therapeutic Lovenox vsEliquis per primary team. MANAGER * Plan of Care - Luana Savage RN - 10/26/2023 2:49 PM CST Per Medical Chart/Rounds/IDR: Per IDR rounds with Hotel Security Officer, Grounds Manager, Charge Nurse, and MD, the patient is [...] assistance, please check the treatment team in [facility] for the assigned behavioral health case manager or contact the weekend Case Management phone MANAGER * Plan of Care - Harvey Horn [...] 2.5L via nasal cannula. Repositioned for comfort. MANAGER MANAGER * Significant Event - Tia Nolan NP - 10/25/2023 8:13 PM CHEF MANAGER CHUGG-OUT (SICU to OU/Floor Transfer) SICU MD [...] discontinued) [x] Sign-out was called to dr. Runao of the ortho service. QUESTIONS? Call [phone] ([phone]). MANAGER * Consults, Subsequent - James Silva MD [...] unlikely the patient will require anti-seizure medication correction, but it is reasonable to con tinue [...] provide their number in the discharge instructions: [phone] The neurology consult service will sign off at this time. Please call the neurology consult phone at [phone] (Senior) with questions. James Silva MD Neurology resident PGY-3 MANAGER * Plan of Care - Tamia Holman RN - 10/25/2023 10:41 AM CST Goals: Clinical Goals for the Shift: VSS, pending MRI, pain control, continue heparin drip, PM labs Summary: Plans for the day, pain control, VSS, labs/monitor hepain gtt, MRI pending. 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 Phan stated that they have a good support system. Do you have a Anabaptism Preference or Affiliation?: No Are there any Anabaptism Practices that are [...] concerns for her at this time. (10/24/23 2874) Risk to Self and Others: Risk to Self and Others Violence risk to self in past 6 months? : Unable to assess Self Harm/Suicidal Ideation Plan: Unable to assess Violence risk to others in past 6 months? : Unable to assess Any lifetime risk of violence to others? : Unable to assess (10/24/23 0652) Impressions and Recommendations: Patient is 73 year [...] including surrogate decision makers, durable power of attorney law clerk, and advanced directives. Patient has a POA [...] CM following for discharge planning. GEN Medina, WINDOWS ADMINISTRATOR MANAGER * Significant Event - Nasir Manzanares MD - 10/23/2023 10:14 PM CHEF MANAGER At the end of the OR case, [...] Hayder Vu MD at 10/23/2023 11:31 PM CHEF MANAGER MANAGER MANAGER Associated attestation - Hayder Vu Jr., MD - 10/23/2023 11:31 PM CHEF MANAGER Upon transfer to PACU, patient was noted [...] to follow closely. Hayder Vu Jr., MD Card Grader Department of Orthopaedic Surgery Division of Spine Surgery [facility] [place], [place] * Op Note - Hayder Vu MD - 10/23/2023 5:14 PM CST Operative Report Surgeon Hayder Vu MD Hod Carrier(s) Nasir Manzanares MD Anesthesia General endotracheal. Preoperative [...] patient was then turned prone onto the [facility] Steven table. All bony prominences were properly [...] of the L5 spinous process. A lamina fur glosser was placed between the remainder of the [...] placed under fluoroscopic guidance. A Globus Sable [id number] 7-14mm 15 Deg lordo tic cage was [...] obstruction. The decompression was confirmed with a [place] elevator which was able to be passed [...] Implant Name Type Inv. Item Serial No. Tenter Lot No. LRB No. Used Action ALLOSOURCE Crushed Chip Frozen Graft 30ml Bone Cancellous [id number] - [id number] ALLOSOURCE CrushedChip Frozen Graft 30ml Bone Cancellous [id number] Allosource [id number] N/A 1 Implanted [employer] INC Allograft Bone Putty 2.5CC 700-025 - [id number] appsplitDICS INC Allograft Bone Putty2.5CC 700-025 CerTropical Beveragesd[employer] Inc [id number] N/A 1 Implanted GLOBUS [employer] Creo Od7.5 Mm L55 Mm Thread Polyaxial Spine Screw Bone Titanium 5146.1757 - [id number] [employer] Creo Od7.5 Mm L55 Mm Thread Polyaxial Spine Screw Bone Titanium 5146.1757 Globus Medical N/A 1 Implanted [employer] Creo Od7.5 Mm L50 Mm Thread Polyaxial Spine Screw Bone Titanium 5146.1752 - [id number] [employer] Creo Od7.5 Mm L50 Mm Thread Polyaxial Spine Screw Bone Titanium 5146.1752 Globus Medical N/A 3 Implanted [employer] Creo Thread Spinal Cap Locking Nonsterile 1119.0010 - [id number] [employer] Creo Thread Spinal Cap Locking Nonsterile 1119.0010 Gl[employer] N/A 4 Implanted [employer] Implant Spinal Sable 43u48ii 7-14mm 15 Deg 1172.2121S - [id number] [employer] Implant Spinal Sable [id number] 7-14mm 15 Deg 1172.2121S [employer] N/A 1 Implanted [employer] Creo 5.5mm 45mm Curve Daniel Spinal Titanium 1119.7045 - [id number] [employer] Creo 5.5mm 45mm Curve Daniel Spinal Titanium 1119.7045 Gl[employer] N/A 2 Implanted Specimens None. Counts Correct. Estimated Blood Loss 150 mL. Total IV Fluids 1500 mL. Complications None. Condition on Discharge from OR Stable. Hayder Vu Jr., MD Card Grader Department of Orthopaedic Surgery Division of Spine Surgery [facility] [place], [place] Operative Report dictated by Hayder Vu MD on 10/26/23 using Fluency Direct. Transcriptionvariances may occur. MANAGER MANAGER MANAGER * Brief Op Note - Nasir Manzanares MD - 10/23/2023 5:14 PM CST Operative Progress Note Surgical Team: Surgeon(s) and Role: * Hayder Vu MD - Primary * Nasir Manzanares MD - Resident - Assisting Anesthesiologist: Ann Salazar MD LOOM REPAIRER: Deisy Snyder CRNA Gallery Manager: Alice Vaughn MD Information Coder: Yeni Walker RN; Rena Michelle RN Scrub Relief: Sergio-Bibiana, Rad, ST Scrub: Teo Stiles ST Assistant Loan Processor: Belen Valdez MT FLOAT: Oneyda Foley NP [...] Implant Name Type Inv. Item Serial No. Tenter Lot No. LRB No. Used Action ALLOSOURCE Crushed Chip Frozen Graft 30ml Bone Cancellous [id number] - [id number] ALLOSOURCE CrushedChip Frozen Graft 30ml Bone Cancellous [id number] Allosource [id number] N/A 1 Implanted [employer] Allograft Bone Putty 2.5CC 700-025 - [id number] [employer] INC Allograft Bone Putty2.5CC 700-025 e-Zassi Inc [id number] N/A 1 Implanted [employer] Creo Od7.5 Mm L55 Mm Thread Polyaxial Spine Screw Bone Titanium 5146.1757 - [id number] [employer] Creo Od7.5 Mm L55 Mm Thread Polyaxial Spine Screw Bone Titanium 5146.1757 Globus Medical N/A 1 Implanted [employer] Creo Od7.5 Mm L50 Mm Thread Polyaxial Spine Screw Bone Titanium 5146.1752 - [id number] [employer] Creo Od7.5 Mm L50 Mm Thread Polyaxial Spine Screw Bone Titanium 5146.1752 Globus Medical N/A 3 Implanted [employer] Creo Thread Spinal Cap Locking Nonsterile 1119.0010 - [id number] [employer] Creo Thread Spinal Cap Locking Nonsterile 1119.0010 Globus [employer] N/A 4 Implanted [employer] Implant Spinal Sable 92a30at 7-14mm 15 Deg 1172.2121S - [id number] [employer] Implant Spinal Sable 13s05if 7-14mm 15 Deg 1172.2121S Gl[employer] Medical N/A 1 Implanted [employer] Creo 5.5mm 45mm Curve Daniel Spinal Titanium 1119.7045 - [id number] [employer] Creo 5.5mm 45mm Curve Daniel [...] Hayder Vu MD at 10/26/2023 12:57 PM CHEF MANAGER MANAGER MANAGER * Plan of Care - Stefany Crook RN - 10/23/2023 12:06 AM CST Problem: Safety: Goal: Will remain free from falls Outcome: Progressing Goals: Clinical Goals for the Shift: VSS, pain management, safety and comfort Summary: MANAGER * Plan of Care - Lisa Rudolph [...] Goal: Pain level will decrease Outcome: Progressing MANAGER * Plan of Care - Lana Turcios [...] VSS, pain management, safety and comfort Summary: MANAGER * Plan of Care - Harmony Norman [...] Goal: Pain level will decrease Outcome: Progressing MANAGER * Plan of Care - Johnnie Flores [...] with VS WNL, pain free, and safe. MANAGER * Plan of Care - Brandyn Cain [...] Shift: VS WNL, pain control and safety. MANAGER * Plan of Care - Johnnie Flores [...] pain was under control with prn medication. MANAGER * Consults, Subsequent - Vero Tolentino MD - 10/19/2023 10:01 AM CHEF MANAGER Images from the original note were [...] or concerns, please page Urology through the profile saw setup operator. Vero Tolentino MD 10/19/2023 Cosigned by Fredrick Mcneil MD at 10/19/2023 10:25 AM CHEF MANAGER MANAGER MANAGER * Plan of Care - Brandyn Cain [...] Goal: Pain level will decrease Outcome: Ongoing MANAGER * Plan of Care - Frieda Cai [...] unmanageable or unbearable will improve Outcome: Progressing MANAGER * Plan of Care - Torey Mckenna RN - 10/18/2023 3:26 PM CST Per Medical Chart/Rounds/DCAM: IDR ADD: TBD Plan & referrals made/in place: [facility] [place] [place]. Patient went to OR with urology [...] Patient and/or family are agreeable with plan. assembly manager will continue to follow and assist with discharge planning as needed. If any further discharge needs arise, please contact the covering behavioral health case manager. MANAGER * Consults, Subsequent - Vero Tolentino MD - 10/18/2023 3:15 PM CHEF MANAGER Images from the original note were [...] or concerns, please page Urology through the profile saw setup operator. Vero Tolentino MD 10/18/2023 Cosigned by Gabriel Bennett MD at 10/18/2023 6:54 PM CHEF MANAGER MANAGER MANAGER MANAGER Associated attestation - Gabriel Bennett MD - 10/18/2023 6:54 PM CHEF MANAGER I have seen and examined the [...] to get PET scan done over on [facility]. MANAGER * Plan of Care - Rosi Fernandes MD - 10/18/2023 11:19 AM CHEF MANAGER Mr. Evans is a 73 yo male [...] from 6:00 to 18:00 (Sunday-Sunday), please call [phone].If you want to contact Urology consults after hours (18:00 to 6:00) and over the weekend, please call the profile saw setup operator. Cosigned by Gabriel Bnenett MD at 10/18/2023 3:59 PM CHEF MANAGER MANAGER MANAGER * Op Note - Gabriel Bennett MD - 10/18/2023 8:45 AM CST OPERATIVE REPORT SURGEON Gabriel Bennett M.D. DRILLING FLUIDS SPECIALIST Vero Tolentino MD ANESTHESIA General. PREOPERATIVE DIAGNOSIS [...] ensure proper patient and proper procedure. A 22-Greek rigid cystoscope was introduced into the urethra [...] present and participated in the entire procedure. MANAGER * Plan of Care - Christal García [...] Goal: Pain level will decrease Outcome: Progressing MANAGER * Plan of Care - Lisa Rudolph [...] unmanageable or unbearable will improve Outcome: Progressing MANAGER * Consults, Subsequent - Vero Tolentino MD - 10/17/2023 11:41 AM CHEF MANAGER Images from the original note were [...] or concerns, please page Urology through the profile saw setup operator. Vero Tolentino MD 10/17/2023 Cosigned by Maris Montilla MD at 10/18/2023 9:04 AM CHEF MANAGER MANAGER MANAGER * Plan of Care - Stacy Tim [...] keep pt free from injury and comfortable MANAGER * Plan of Care - Rebecca Lozano [...] Activity: Goal: Mobility will improve Outcome: Progressing MANAGER * Plan of Care - Dionne Palafox [...] medications given withpartial relief. Vital signs stable. MANAGER * Plan of Care - Lana Turcios [...] q 8 hours, pain management, encourage activity MANAGER * Assessment & Plan Note - Jimenez Henao MD - 10/15/2023 9:06 AM CHEF MANAGER Associated Problem(s): Left perinephric collection, 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 Likely post procedure complication. Urology following - CT urogram on 10/16 notes presence of L perinephric hematoma - Continue to trend white count, renal function and fever curve MANAGER MANAGER MANAGER * Consults, Subsequent - Vero Tolentino MD - 10/15/2023 6:38 AM CHEF MANAGER Images from the original note were [...] was obtained. Prior to beginning the procedure, Gut[place]berg Protocol was performed to confirm the patient's [...] or concerns, please page Urology through the profile saw setup operator. Vero Tolentino MD 10/14/2023 Cosigned by Fredrick Mcneil MD at 10/17/2023 5:10 PM CHEF MANAGER MANAGER MANAGER MANAGER * Plan of Care - Lyn Tolliver [...] Provided comfort and safety. Nephrostomy dressing changed. MANAGER * Plan of Care - Sue Allison [...] pressure high, MD notified. Patient resting comfortably. MANAGER * Post-Procedure Note - Ana Alfaro MD - 10/14/2023 1:46 PM CST Radiology Brief Post Procedure Note Attending: Dr. Hughes Podiatric Assistant: Dr. Alfaro Sedation/Anesthesia: Min Sedation Pre-Op/Pre-Procedure Diagnosis: Hydronephrosis Post-Op/Post-Procedure Diagnosis: Mild hydronephrosis with blood clots in the collecting system andmoderate hydroureter Procedure Performed: Right percutaneous PCN placement Procedure Findings: Successful PCN placement Complications: None Estimated Blood Loss: < 30 ml Specimens: 10 ml aspirate sent to the lab Condition: Stable Full report to follow. MANAGER * Pre-Procedure Note - Ana Alfaro MD [...] (premix) 2,000 mg, 2,000 mg, intravenous, Q24H [facility], Severo Merlos MD, 2,000 mg at [...] flush 0.5-20 mL, 0.5-20 mL, intra-catheter, Q8H [facility], Ana Alfaro MD, 10 mL at [...] been discussed with the patient and/or their senior outside sales representative. All questions answered and they agree to proceed. MANAGER MANAGER * Plan of Care - Lyn Tolliver [...] Observed Strict intake and output. Monitored hematuria. MANAGER * Consults, Subsequent - Vero Tolentino MD - 10/13/2023 5:57 PM CHEF MANAGER Images from the original note were [...] or concerns, please page Urology through the profile saw setup operator. Vero Tolentino MD 10/13/2023 Cosigned by Fredrick Mcneil MD at 10/13/2023 11:37 PM CHEF MANAGER MANAGER MANAGER MANAGER * Initial Assessments - Torey Mckenna RN - 10/13/2023 2:42 PM CHEF MANAGER CM Initial Assessment Interview Note Information Obtained From: Patient (10/13/231439) in the room Admission Source: from ED Impression: 73 yo male admitted for UTI. Plan Includes: to establish a safe discharge plan Primary Source of Transportation: Does the patient need discharge transport arranged?: (unknown, as DC location unknown) (10/13/231439) Health Insurance Coverage: [facility] Medicare Prescription Coverage: yes Pharmacy: [facility] [address] [place] [address] [phone] [address] [address] [facility] [address] Primary Care Provider: Rl Medina DO Prior [...] Collaboration with patient, MD, direct care nurse, Grounds Manager, and other members of the health care team to assure needed interventions completed. 2. Return patient to optimal level of self-care post discharge. 3. Hotel Security Officer will follow for Discharge Planning - interventions [...] with the aftercare plan. Torey Mckenna RN MANAGER * Hospital Course - Jimenez Henao MD - 10/13/2023 2:42 PM CHEF MANAGER Hira Evans is a 73 y.o. male [...] ortho, his surgery as postponed to 10/23. MANAGER MANAGER MANAGER MANAGER MANAGER MANAGER MANAGER MANAGER MANAGER MANAGER MANAGER * Plan of Care - Js Cardenas [...] medicine. Pt currently NPO. Family at bedside. MANAGER * Post-Procedure Note - Ana Alfaro MD - 10/13/2023 9:46 AM CST Radiology Brief Post Procedure Note Attending: Dr. Mar Podiatric Assistant: Dr. Alfaro Sedation/Anesthesia: Min Sedation Pre-Op/Pre-Procedure Diagnosis: Hydroureteronephrosis with an obstructing stone Post-Op/Post-Procedure Diagnosis: Same Procedure Performed: Attempted PCN placement Procedure Findings: Non-dilated calyces with contrast washing down the ureter. Complications: None Estimated Blood Loss: None Specimens: None Condition: Stable Full report to follow. MANAGER * Pre-Procedure Note - Ana Alfaro MD [...] been discussed with the patient and/or their senior outside sales representative. All questions answered and they agree to proceed. MANAGER * Assessment & Plan Note - Severo Merlos MD - 10/13/2023 5:39 AM CHEF MANAGER Associated Problem(s): Prostate cancer (HCC) S/p postprostatectomy MANAGER * Assessment & Plan Note - Marquise Lim MD - 10/13/2023 5:36 AM CHEF MANAGER Associated Problem(s): HTN (hypertension) Hold home irbesartan Restart diltiazem xl MANAGER MANAGER MANAGER * Assessment & Plan Note - Jimenez Henao MD - 10/13/2023 5:36 AM CHEF MANAGER Associated Problem(s): Hydronephrosis with urinary obstruction due [...] though OK to de-escalate to oral regimen MANAGER MANAGER MANAGER MANAGER MANAGER MANAGER MANAGER MANAGER MANAGER MANAGER MANAGER MANAGER MANAGER MANAGER MANAGER * Assessment & Plan Note - Jimenez Henao MD - 10/13/2023 5:36 AM CHEF MANAGER Associated Problem(s): Lumbar radiculopathy He has been [...] every 4 hours Surgery rescheduled to 10/23/23 MANAGER MANAGER MANAGER MANAGER MANAGER MANAGER * Assessment & Plan Note - Jimenez Henao MD - 10/13/2023 5:35 AM CHEF MANAGER Associated Problem(s): UTI (urinary tract infection) - Complicated UTI with the presence of left ureteral stone and Pyelitis - urine culture grew E-coli which is pansusceptible. - Discussion with urology and orthopedic surgery: continue Keflex 500 mg q6hr as it appears patientwill stay in-house until OR on 10/22-10/23 -Antibiotics as above. MANAGER MANAGER MANAGER MANAGER MANAGER MANAGER * Plan of Care - Silvana Man [...] new admit orders/call light,bed controls,meal times,televisions controls. MANAGER * Perioperative Nursing Note - Philip Ha RN - 10/13/2023 3:41 AM CHEF MANAGER Pt is being signed out by Anesthesia. MANAGER * Op Note - Fredrick Mcneil MD [...] Consult IR for left nephrostomy tube placement MANAGER * ED Re-evaluation Note - Genaro Chavira MD - 10/12/2023 11:05 PM CHEF MANAGER ED Re-evaluation TRANSITION OF CARE: Genaro Dixon [...] MD Kurtz, Camden Emmett, MD Resident 10/12/232318 MANAGER documented in this encounter Plan of Treatment Pending Results Name Type Priority Associated Diagnoses Date /Time Erythrocyte sedimentation rate Lab STAT 10/12/2023 7:50 PM CHEF MANAGER CRP (acute phase) Lab STAT 023 7:50 PM CHEF MANAGER Basic metabolic panel Lab Routine 7:06 PM CHEF MANAGER Phosphorus Lab Routine 10/29/2023 9:5 3 PM CHEF MANAGER Magnesium Lab Routine 10/29/2023 9:5 3 PM CHEF MANAGER Scheduled Orders Name Type Priority Associated [...] 3 VIEWS Pending Discharge 10/30/2023 9:49 AM CHEF MANAGER EGFR Routine 10/29/2023 9:53 PM CHEF MANAGER DIFFERENTIAL AUTO Routine 10/29/2023 9:5 3 PM CHEF MANAGER CBC WITH AUTO DIFFERENTIAL Routine 10/29/2023 9:53 PM CHEF MANAGER PHOSPHORUS Routine 10/29/2023 9:53 PM CHEF MANAGER MAGNESIUM Routine 10/29/2023 9:53 PM CHEF MANAGER BASIC METABOLIC PANEL Routine 10/29/2023 9:53 PM CHEF MANAGER EGFR Routine 10/29/2023 4:40 AM CHEF MANAGER DIFFERENTIAL AUTO Routine 10/29/2023 4:4 0 AM CHEF MANAGER CBC WITH AUTO DIFFERENTIAL Routine 10/29/2023 4:40 AM CHEF MANAGER TYPE AND SCREEN Timed 10/29/2023 4:40 AM CHEF MANAGER PHOSPHORUS Routine 10/29/2023 4:40 AM CHEF MANAGER MAGNESIUM Routine 10/29/2023 4:40 AM CHEF MANAGER BASIC METABOLIC PANEL Routine 10/29/2023 4:[address] HEAD WO CONTRAST IP Routine 10/28/2023 5 :58 PM CHEF MANAGER EGFR Routine 10/27/2023 11:32 PM CHEF MANAGER DIFFERENTIAL AUTO Routine 10/27/2023 11:32 PM CHEF MANAGER CBC WITH AUTO DIFFERENTIAL Routine 10/27/2023 11:32 PM CHEF MANAGER BASIC METABOLIC PANEL Routine 10/27/2023 11:32 PM CHEF MANAGER CBC WITHOUT DIFFERENTIAL Timed 10/27/2023 4:37 AM CHEF MANAGER PHOSPHORUS Routine 10/27/2023 4:37 AM CHEF MANAGER MAGNESIUM Routine 10/27/2023 4:37 AM CHEF MANAGER EGFR Routine 10/26/2023 8:07 PM CHEF MANAGER DIFFERENTIAL AUTO Routine 10/26/2023 8:0 7 PM CHEF MANAGER CBC WITH AUTO DIFFERENTIAL Routine 10/26/2023 8:07 PM CHEF MANAGER BASIC METABOLIC PANEL Routine 10/26/2023 8:07 PM CHEF MANAGER EGFR STAT 10/26/2023 5:28 PM CHEF MANAGER APTT STAT 10/26/2023 5:28 PM CHEF MANAGER PROTIME-INR STAT 10/26/2023 5:28 PM CHEF MANAGER CBC WITHOUT DIFFERENTIAL STAT 10/26/2023 5:28 PM CHEF MANAGER CREATININE STAT 10/26/2023 5:28 PM CHEF MANAGER DIFFERENTIAL AUTO Timed 10/26/2023 2:4 3 PM CHEF MANAGER CBC WITH AUTO DIFFERENTIAL Timed 10/26/2023 2:43 PM CHEF MANAGER APTT STAT 10/26/2023 11:09 AM CHEF MANAGER TRANSFUSE RED BLOOD CELLS Timed 10/26/2023 10:02 AM CHEF MANAGER PREPARE RBC Timed 10/26/2023 4:46 AM CHEF MANAGER TRANSFUSE RED BLOOD CELLS Timed 10/26/2023 3:55 AM CHEF MANAGER PREPARE RBC Timed 10/26/2023 3:03 AM CHEF MANAGER APTT STAT 10/26/2023 2:21 AM CHEF MANAGER CBC WITHOUT DIFFERENTIAL Timed 10/26/2023 2:21 AM CHEF MANAGER TYPE AND SCREEN Timed 10/26/2023 2:21 AM CHEF MANAGER PHOSPHORUS Routine 10/26/2023 2:21 AM CHEF MANAGER MAGNESIUM Routine 10/26/2023 2:21 AM CHEF MANAGER POTASSIUM, WHOLE BLOOD STAT 10/25/2023 10:11 PM CHEF MANAGER CRITICAL CARE Routine 10/25/2023 9:09 PM CHEF MANAGER Cardiac arrest (HCC) EGFR Routine 10/25/2023 8:41 PM CHEF MANAGER DIFFERENTIAL AUTO Routine 10/25/2023 8:4 1 PM CHEF MANAGER CBC WITH AUTO DIFFERENTIAL Routine 10/25/2023 8:41 PM CHEF MANAGER BASIC METABOLIC PANEL Routine 10/25/2023 8:41 PM CHEF MANAGER POCT GLUCOSE DEVICE Routine 10/25/2023 7 :22 PM CHEF MANAGER CRITICAL CARE Routine 10/25/2023 6:45 PM CHEF MANAGER Seizures, generalized convulsive (HCC) APTT STAT 10/25/2023 4:59 PM CHEF MANAGER POCT GLUCOSE DEVICE Routine 10/25/2023 3 :09 PM CHEF MANAGER MRI BRAIN EPILEPSY W WO CONTRAST IP Routine 10/25/2023 1:55 PM CHEF MANAGER POCT GLUCOSE DEVICE Routine 10/25/2023 10:57 AM CHEF MANAGER DIFFERENTIAL AUTO Timed 10/25/2023 10:14 AM CHEF MANAGER CBC WITH AUTO DIFFERENTIAL Timed 10/25/2023 10:14 AM CHEF MANAGER APTT STAT 10/25/2023 10:14 AM CHEF MANAGER XR CHEST 1 VIEW ED Urgent/IP Urgent 10/25/2023 9:52 AM CHEF MANAGER POCT GLUCOSE DEVICE Routine 10/25/2023 6 :58 AM CHEF MANAGER POCT GLUCOSE DEVICE Routine 10/25/2023 3 :44 AM CHEF MANAGER APTT STAT 10/25/2023 3:14 AM CHEF MANAGER POCT GLUCOSE DEVICE Routine 10/24/2023 11:45 PM CHEF MANAGER CRITICAL CARE Routine 10/24/2023 11:00 PM CHEF MANAGER Cardiac arrest (HCC) CALCIUM, IONIZED Routine 10/24/2023 9:11 PM CHEF MANAGER POCT GLUCOSE DEVICE Routine 10/24/2023 7 :42 PM CHEF MANAGER EGFR Routine 10/24/2023 7:06 PM CHEF MANAGER DIFFERENTIAL AUTO Routine 10/24/2023 7:0 6 PM CHEF MANAGER CBC WITH AUTO DIFFERENTIAL Routine 10/24/2023 7:06 PM CHEF MANAGER APTT Routine 10/24/2023 7:06 PM CHEF MANAGER PROTIME-INR Routine 10/24/2023 7:06 PM CHEF MANAGER PHOSPHORUS Routine 10/24/2023 7:06 PM CHEF MANAGER MAGNESIUM Routine 10/24/2023 7:06 PM CHEF MANAGER BASIC METABOLIC PANEL Routine 10/24/2023 7:06 PM CHEF MANAGER POCT GLUCOSE DEVICE Routine 10/24/2023 2 :58 PM CHEF MANAGER APTT STAT 10/24/2023 12:18 PM CHEF MANAGER TRANSTHORACIC ECHO (TTE) COMPLETE W DOPPLER/CF W CONTRAST STAT 10/24/2023 11:43 AM CHEF MANAGER POCT GLUCOSE DEVICE Routine 10/24/2023 11:04 AM CHEF MANAGER TROPONIN I HIGH-SENSITIVITY 6-HOUR Timed 10/24/2023 9:39 AM CHEF MANAGER TROPONIN I HIGH-SENSITIVITY Routine 10/24/2023 8:32 AM CHEF MANAGER POCT GLUCOSE DEVICE Routine 10/24/2023 7 :31 AM CHEF MANAGER CRITICAL CARE Routine 10/24/2023 6:48 AM CHEF MANAGER Cardiac arrest (HCC) TROPONIN I HIGH-SENSITIVITY 2-HOUR Timed 10/24/2023 5:38 AM CHEF MANAGER APTT STAT 10/24/2023 5:38 AM CHEF MANAGER EEG Routine 10/24/2023 5:02 AM CHEF MANAGER ECG 12-LEAD STAT 10/24/2023 3:44 AM CHEF MANAGER TROPONIN I HIGH-SENSITIVITY SERIES (BASELINE, 2HR, 4HR, 6HR) Routine 10/24/2023 3:38 AM CHEF MANAGER LACTATE Routine 10/24/2023 3:38 AM CHEF MANAGER CRITICAL RESULT CALLBACK CARDIO CHEM Routine 10/24/2023 3:38 AM CHEF MANAGER POCT GLUCOSE DEVICE Routine 10/24/2023 3 :25 AM CHEF MANAGER HIV 1/2 ANTIBODY PLUS P24 ANTIGEN Routine 10/24/2023 12:20 AM CHEF MANAGER POCT GLUCOSE DEVICE Routine 10/24/2023 12:20 AM CHEF MANAGER APTT STAT 10/24/2023 12:20 AM CHEF MANAGER PROTIME-INR STAT 10/24/2023 12:20 AM CHEF MANAGER CBC WITHOUT DIFFERENTIAL STAT 10/24/2023 12:[address] CHEST PE ABDOMEN PELVIS W CONTRAST ED Urgent/IP Urgent 10/23/2023 11:[address] HEAD WO CONTRAST Critical/Life-Th reatening 10/23/2023 11:48 PM CHEF MANAGER CRITICAL CARE Routine 10/23/2023 11:47 PM CHEF MANAGER Cardiac arrest (HCC) DIFFERENTIAL AUTO Routine 10/23/2023 11:03 PM CHEF MANAGER CALCIUM, IONIZED STAT 10/23/2023 11:03 PM CHEF MANAGER CBC WITH AUTO DIFFERENTIAL Routine 10/23/2023 11:03 PM CHEF MANAGER MANUAL DIFFERENTIAL Routine 10/23/2023 11:03 PM CHEF MANAGER BLOOD GAS, ARTERIAL STAT 10/23/2023 11:03 PM CHEF MANAGER EGFR STAT 10/23/2023 11:02 PM CHEF MANAGER APTT STAT 10/23/2023 11:02 PM CHEF MANAGER PROTIME-INR STAT 10/23/2023 11:02 PM CHEF MANAGER PHOSPHORUS STAT 10/23/2023 11:02 PM CHEF MANAGER MAGNESIUM STAT 10/23/2023 11:02 PM CHEF MANAGER LIPID PANEL STAT 10/23/2023 11:02 PM CHEF MANAGER COMPREHENSIVE METABOLIC PANEL STAT 10/23/2023 11:02 PM CHEF MANAGER POC BLOOD GAS AND CHEMISTRIES, ARTERIAL Routine 10/23/2023 10:39 PM CHEF MANAGER POC BLOOD GAS AND CHEMISTRIES, ARTERIAL Routine 10/23/2023 10:07 PM CHEF MANAGER EGFR STAT 10/23/2023 9:52 PM CHEF MANAGER CBC WITHOUT DIFFERENTIAL STAT 10/23/2023 9:52 PM CHEF MANAGER BASIC METABOLIC PANEL STAT 10/23/2023 9:52 PM CHEF MANAGER POC BLOOD GAS AND CHEMISTRIES, VENOUS Routine 10/23/2023 9:50 PM CHEF MANAGER FL FLUOROSCOPY < 1 HOUR IP Routine 10/23/2023 8:45 PM CHEF MANAGER SPINAL CORD MONITORING 10/23/2023 4:26 PM CHEF MANAGER Lumbar radiculopathy Case Notes 10/22: Cell Saver Audit, case msg to [facility] 0905/No Special Needs OSI- 6 post, c-arm, SCM, prone view pillow, autograft, allograft (30cc cancellous chips), Globus Creo PSI, Globus Altera, Globus Sable LAMINECTOMY LUMBAR - POSTERIOR 10/23/2023 4:26 PM CHEF MANAGER Lumbar radiculopathy Case Notes 10/22: Cell Saver Audit, case msg to [facility] 0905/No Special Needs OSI- 6 post, c-arm, SCM, prone view pillow, autograft, allograft (30cc cancellous chips), Globus Creo PSI, Globus Altera, Globus Sable FUSION SPINAL - POSTERIOR LUMBAR/THORACIC WITH INSTRUMENTATION 10/23/2023 4:26 PM CHEF MANAGER Lumbar radiculopathy Case Notes 10/22: Cell Saver Audit, case msg to [facility] 0905/No Special Needs OSI- 6 post, c-arm, SCM, prone view pillow, autograft, allograft (30cc cancellous chips), Globus Creo PSI, Globus Altera, Globus Sable EGFR Routine 10/22/2023 9:39 PM CHEF MANAGER DIFFERENTIAL AUTO Routine 10/22/2023 9:3 9 PM CHEF MANAGER CBC WITH AUTO DIFFERENTIAL Routine 10/22/2023 9:39 PM CHEF MANAGER PROTIME-INR Routine 10/22/2023 9:39 PM CHEF MANAGER TYPE AND SCREEN Timed 10/22/2023 9:39 PM CHEF MANAGER BASIC METABOLIC PANEL Routine 10/22/2023 9:39 PM CHEF MANAGER XR CHEST 1 VIEW IP Routine 10/22/2023 6:24 AM CHEF MANAGER EGFR Routine 10/21/2023 10:52 PM CHEF MANAGER DIFFERENTIAL AUTO Routine 10/21/2023 10:52 PM CHEF MANAGER CBC WITH AUTO DIFFERENTIAL Routine 10/21/2023 10:52 PM CHEF MANAGER BASIC METABOLIC PANEL Routine 10/21/2023 10:52 PM CHEF MANAGER EGFR Routine 10/20/2023 9:38 PM CHEF MANAGER DIFFERENTIAL AUTO Routine 10/20/2023 9:3 8 PM CHEF MANAGER CBC WITH AUTO DIFFERENTIAL Routine 10/20/2023 9:38 PM CHEF MANAGER BASIC METABOLIC PANEL Routine 10/20/2023 9:38 PM CHEF MANAGER EGFR Routine 10/19/2023 9:11 PM CHEF MANAGER DIFFERENTIAL AUTO Routine 10/19/2023 9:1 1 PM CHEF MANAGER CBC WITH AUTO DIFFERENTIAL Routine 10/19/2023 9:11 PM CHEF MANAGER BASIC METABOLIC PANEL Routine 10/19/2023 9:11 PM CHEF MANAGER EGFR Routine 10/18/2023 9:29 PM CHEF MANAGER DIFFERENTIAL AUTO Routine 10/18/2023 9:2 9 PM CHEF MANAGER CBC WITH AUTO DIFFERENTIAL Routine 10/18/2023 9:29 PM CHEF MANAGER BASIC METABOLIC PANEL Routine 10/18/2023 9:29 PM CHEF MANAGER DEXA AXIAL SKELETON BONE DENSITY 1 OR MORE SITES IP Routine 10/18/2023 12:45 PM CHEF MANAGER FL FLUOROSCOPY < 1 HOUR IP Routine 10/18/2023 11:27 AM CHEF MANAGER REMOVAL NEPHROSTOMY TUBE - FLOUROSCPY 10/18/2023 9:27 AM CHEF MANAGER Hydronephrosis with urinary obstruction due to renal calculus PLACEMENT PREOPERATIVE STENT - URETERAL 10/18/2023 9:27 AM CHEF MANAGER Hydronephrosis with urinary obstruction due to renal calculus URETEROSCOPY 10/18/2023 9:27 AM CHEF MANAGER Hydronephrosis with urinary obstruction due to renal calculus LITHOTRIPSY - LASER 10/18/2023 9:27 AM CHEF MANAGER Hydronephrosis with urinary obstruction due to renal calculus PYELOGRAM - RETROGRADE 10/18/2023 9:27 AM CHEF MANAGER Hydronephrosis with urinary obstruction due to renal calculus CYSTOSCOPY 10/18/2023 9:27 AM CHEF MANAGER Hydronephrosis with urinary obstruction due to renal calculus EGFR Routine 10/17/2023 10:52 PM CHEF MANAGER DIFFERENTIAL AUTO Routine 10/17/2023 10:52 PM CHEF MANAGER CBC WITH AUTO DIFFERENTIAL Routine 10/17/2023 10:52 PM CHEF MANAGER APTT Routine 10/17/2023 10:52 PM CHEF MANAGER PROTIME-INR Routine 10/17/2023 10:52 PM CHEF MANAGER BASIC METABOLIC PANEL Routine 10/17/2023 10:[address] UROGRAM IP Routine 10/16/2023 12:36 PM CHEF MANAGER PERCUTANEOUS NEPHROSTOMY PCN LEFT IP Routine 10/14/2023 1:38 PM CHEF MANAGER URINALYSIS AND REFLEX TO MICROSCOPIC AND CULTURE Routine 10/14/2023 1:35 PM CHEF MANAGER URINALYSIS, MICROSCOPIC ONLY Routine 10/14/2023 1:35 PM CHEF MANAGER URINE CULTURE Routine 10/14/2023 1:35 PM CHEF MANAGER US KIDNEY COMPLETE Timed 10/14/2023 7: 15 AM CHEF MANAGER EGFR Routine 10/14/2023 6:30 AM CHEF MANAGER DIFFERENTIAL AUTO Routine 10/14/2023 6:3 0 AM CHEF MANAGER CBC WITH AUTO DIFFERENTIAL Routine 10/14/2023 6:30 AM CHEF MANAGER COMPREHENSIVE METABOLIC PANEL Routine 10/14/2023 6:30 AM CHEF MANAGER BLOOD CULTURE Routine 10/13/2023 10:59 PM CHEF MANAGER BLOOD CULTURE Routine 10/13/2023 11:01 AM CHEF MANAGER FL FLUOROSCOPY < 1 HOUR ED Urgent/IP Urgent 10/13/2023 9:48 AM CHEF MANAGER EGFR Routine 10/13/2023 6:50 AM CHEF MANAGER DIFFERENTIAL AUTO Routine 10/13/2023 6:5 0 AM CHEF MANAGER CBC WITH AUTO DIFFERENTIAL Routine 10/13/2023 6:50 AM CHEF MANAGER COMPREHENSIVE METABOLIC PANEL Routine 10/13/2023 6:50 AM CHEF MANAGER FL FLUOROSCOPY < 1 HOUR IP Routine 10/13/2023 3:00 AM CHEF MANAGER PYELOGRAM - RETROGRADE 10/13/2023 2:21 AM CHEF MANAGER Hydronephrosis with urinary obstruction due to renal calculus CYSTOSCOPY 10/13/2023 2:21 AM CHEF MANAGER Hydronephrosis with urinary obstruction due to renal calculus MRI SPINE TOTAL COMPLETE W WO CONTRAST ED 10/12/2023 11:44 PM CHEF MANAGER BLOOD CULTURE STAT 10/12/2023 9:[address] CHEST ABDOMEN PELVIS W CONTRAST ED 10/12/2023 9:00 PM CHEF MANAGER LACTATE STAT 10/12/2023 7:50 PM CHEF MANAGER EGFR STAT 10/12/2023 7:50 PM CHEF MANAGER DIFFERENTIAL AUTO STAT 10/12/2023 7:5 0 PM CHEF MANAGER URINALYSIS AND REFLEX TO MICROSCOPIC AND CULTURE STAT 10/12/2023 7:50 PM CHEF MANAGER CBC WITH AUTO DIFFERENTIAL STAT 10/12/2023 7:50 PM CHEF MANAGER BLOOD CULTURE STAT 10/12/2023 7:50 PM CHEF MANAGER URINALYSIS, MICROSCOPIC ONLY STAT 10/12/2023 7:50 PM CHEF MANAGER ERYTHROCYTE SEDIMENTATION RATE STAT 10/12/2023 7:50 PM CHEF MANAGER URINE CULTURE STAT 10/12/2023 7:50 PM CHEF MANAGER CRP (ACUTE PHASE) STAT 10/12/2023 7:5 0 PM CHEF MANAGER BASIC METABOLIC PANEL STAT 10/12/2023 7:50 PM CHEF MANAGER documented in this encounter Results * XR Spine Lumbar 2 or 3 Views (10/30/2023 9:49 AM CHEF MANAGER) Anatomical Region Laterality Modality Spine N/A Computed Radiogr aphy 10/30/2023 10:1 9 AM CHEF MANAGER Impressions 10/30/2023 10:25 AM CHEF MANAGER 1. ??Posterior instrumented spinal fusion from L4 to L5 with combined interbody fusion. Dictated by: Tamia Rojas MD The radiology attending physician has personally reviewed this study, and had reviewed and/or edited this written report and agrees with it. Electronically signed by: Dmitry Navarro MD Narrative 10/30/2023 10:25 AM CHEF MANAGER EXAMINATION: XR SPINE LUMBAR 2 OR 3 [...] by: Dmitry Navarro MD us Rafael Rodriguez OPERATING COST CLERK IMG XR PROCEDURES Final Resu lt * eGFR (10/29/2023 9:53 PM CHEF MANAGER) [facility] eGFR 85 >=60 mL/min/1. 73 m2 [facility] Comment: Interpretive Data Reference Interval Normal [...] last reviewed 2021. Blood 10/29/2023 9:53 PM CHEF MANAGER 10/29/2023 10:11 PM CHEF MANAGER Tia Nolan NP LAB BLOOD ORDERABLES F inal Result Performing Organization Address City/[facility]/ZIP Co de Phone Number [facility] Department [place] [address] * Magnesium (10/29/2023 9:53 PM CHEF MANAGER) Magnesium 1.7 1.4 - 2.5 mg/dL [facility] Blood 10/29/2023 9:53 PM CHEF MANAGER 10/29/2023 10:11 PM CHEF MANAGER aHyder Vu Jr., MD LAB BLOOD ORDERABLE S Final Result [facility] Department [place] [address] * Phosphorus (10/29/2023 9:53 PM CHEF MANAGER) Phosphorus, pl 2.6 2.3 - 4.5 mg/dL [facility] Blood 10/29/2023 9:53 PM CHEF MANAGER 10/29/2023 10:11 PM CHEF MANAGER us Hayder Vu Jr., MD LAB BLOOD ORDERABLE S Final Result [facility] [place] [address] * Differential, auto (10/29/2023 9:53 PM CHEF MANAGER) Neutrophil abs 4.9 1.5 - 6.5 K/cumm [facility] Imm gran abs 0.1 0.0 - 0.1 K/cumm [facility] Lymphocyte abs 1.3 0.8 - 3.3 K/cumm [facility] Monocyte abs 0.7 0.2 - 0.8 K[facility] Eosinophil abs 0.2 0.0 - 0.5 K/cumm [facility] Basophil abs 0.0 0.0 - 0.1 K/cumm [facility] Neutrophil pct 68.7 % [facility] Comment: Interpretive Data Percent cell count reference ranges are not reported, since discordance with absolute values may lead to misinterpretation of CBC data. Current Interpretive Data was last revised on 2018. Imm gran pct 1.0 % [facility] Comment: Interpretive Data Percent cell count reference ranges are not reported, since discordance with absolute values may lead to misinterpretation of CBC data. Current Interpretive Data was last revised on 2018. Lymphocyte pct 18.3 % [facility] Comment: Interpretive Data Percent cell count reference ranges are not reported, since discordance with absolute values may lead to misinterpretation of CBC data. Current Interpretive Data was last revised on 2018. Monocyte pct 9.7 % [facility] Comment: Interpretive Data Percent cell count reference ranges are not reported, since discordance with absolute values may lead to misinterpretation of CBC data. Current Interpretive Data was last revised on 2018. Eosinophil pct 2.2 % [facility] Comment: Interpretive Data Percent cell count reference ranges are not reported, since discordance with absolute values may lead to misinterpretation of CBC data. Current Interpretive Data was last revised on 2018. Basophil pct 0.1 % [facility] Comment: Interpretive Data Percent cell count reference ranges are not reported, since discordance with absolute values may lead to misinterpretation of CBC data. Current Interpretive Data was last revised on 2018. Blood 10/29/2023 9:53 PM CHEF MANAGER 10/29/2023 10:11 PM CHEF MANAGER Tia Nolan OPERATING COST CLERK LAB BLOOD ORDERABLES F inal Result Performing Organization Address [facility] Co de Phone Number [facility] Department [place] [employer] [place] [address] * (ABNORMAL) CBC with auto differential (10/29/2023 9:53 PM CHEF MANAGER) WBC 7.2 3.8 - 9.9 K/cumm [facility] Hgb 9.4(L) 13.0 - 17.5 g/dL [facility] Hct 28.0(L) 38.9 - 50.3 % [facility] Plt 313 150 - 400 K/cumm [facility] MPV 10.7 9.1 - 12.3 fL [facility] RBC 3.00(L) 4.30 - 5.80 M/cumm [facility] MCV 93.3 81.3 - 96.4 fL [facility] MCH 31.3 27.1 - 33.3 pg [facility] MCHC 33.6 32.3 - 35.7 g/dL [facility] RDW CV 13.7 11.1 - 14.9 % [facility] RDW SD 46.5 35.7 - 48.1 fL [facility] NRBC abs 0.00 0.00 - 0.01 K/cumm [facility] Blood 10/29/2023 9:53 PM CHEF MANAGER 10/29/2023 10:11 PM CHEF MANAGER Tia Nolan OPERATING COST CLERK LAB BLOOD ORDERABLES F inal Result Performing Organization Address [facility] Co de Phone Number [facility] Department [place] [address] * (ABNORMAL) Basic metabolic panel (10/29/2023 9:53 PM CHEF MANAGER) Pathologist [facility] Sodium 137 135 - 145 mmol/L [facility] Potassium, pl 3.7 3.3 - 4.9 mmol/L [facility] Chloride 103 97 - 110 mmol/L [facility] CO2 24 22 - 32 mmol/L [facility] Anion gap 10 2 - 15 mmol/L [facility] BUN 10 6 - 25 mg/dL [facility] Creatinine 0.95 0.80 - 1.30 mg/dL [facility] Glucose 108 70 - 199 mg/dL [facility] Comment: Interpretive Data Fasting glucose >/= [...] 2022. Calcium 8.1(L) 8.5 - 10.3 mg/dL [facility] Blood 10/29/2023 9:53 PM CHEF MANAGER 10/29/2023 10:11 PM CHEF MANAGER Tia Nolan OPERATING COST CLERK LAB BLOOD ORDERABLES F inal Result [facility] Department [place] [address] * eGFR (10/29/2023 4:40 AM CHEF MANAGER) [facility] eGFR >90 >=60 mL/min/1. 73 m2 [facility] Comment: Interpretive Data Reference Interval Normal [...] last reviewed 2021. Blood 10/29/2023 4:40 AM CHEF MANAGER 10/29/2023 5:04 AM CHEF MANAGER us Tia Nolan OPERATING COST CLERK LAB BLOOD ORDERABLES F inal Result [facility] Department [place] [address] * Differential, auto (10/29/2023 4:40 AM CHEF MANAGER) Pathologist [facility] Neutrophil abs 3.6 1.5 - 6.5 K/cumm [facility] Imm gran abs 0.1 0.0 - 0.1 K/cumm [facility] Lymphocyte abs 1.0 0.8 - 3.3 K/cumm [facility] Monocyte abs 0.6 0.2 - 0.8 K/cumm [facility] Eosinophil abs 0.2 0.0 - 0.5 K/cumm [facility] Basophil abs 0.0 0.0 - 0.1 K/cumm [facility] Neutrophil pct 66.1 % [facility] Comment: Interpretive Data Percent cell count reference ranges are not reported, since discordance with absolute values may lead to misinterpretation of CBC data. Current Interpretive Data was last revised on 2018. Imm gran pct 1.1 % [facility] Comment: Interpretive Data Percent cell count reference ranges are not reported, since discordance with absolute values may lead to misinterpretation of CBC data. Current Interpretive Data was last revised on 2018. Lymphocyte pct 18.9 % [facility] Comment: Interpretive Data Percent cell count reference ranges are not reported, since discordance with absolute values may lead to misinterpretation of CBC data. Current Interpretive Data was last revised on 2018. Monocyte pct 10.4 % [facility] Comment: Interpretive Data Percent cell count reference ranges are not reported, since discordance with absolute values may lead to misinterpretation of CBC data. Current Interpretive Data was last revised on 2018. Eosinophil pct 3.1 % [facility] Comment: Interpretive Data Percent cell count reference ranges are not reported, since discordance with absolute values may lead to misinterpretation of CBC data. Current Interpretive Data was last revised on 2018. Basophil pct 0.4 % [facility] Comment: Interpretive Data Percent cell count reference ranges are not reported, since discordance with absolute values may lead to misinterpretation of CBC data. Current Interpretive Data was last revised on 2018. Blood 10/29/2023 4:40 AM CHEF MANAGER 10/29/2023 5:05 AM CHEF MANAGER us Tia Nolan OPERATING COST CLERK LAB BLOOD ORDERABLES F inal Result [facility] Department [place] [address] * Type and screen (10/29/2023 4:40 AM CHEF MANAGER) Jigna, indirect Negative ABO Rh O Positive [facility] Blood 10/29/2023 4:40 AM CHEF MANAGER 10/29/2023 5:09 AM CHEF MANAGER Narrative [facility] - 10/29/2023 6:37 AM CHEF MANAGER Has the patient had Daratumumab or Isatuximab in the past 6 months?->Unknown Tia Noaln OPERATING COST CLERK LAB BLOOD BANK TEST OR DERABLES Final Result Performing Organization Address City/[facility]/ZIP Co de Phone Number [facility] [place] [employer] [place] [address] * (ABNORMAL) CBC with auto differential (10/29/2023 4:40 AM CHEF MANAGER) [facility] WBC 5.4 3.8 - 9.9 K/cumm [facility] Hgb 9.5(L) 13.0 - 17.5 g/dL [facility] Hct 27.9(L) 38.9 - 50.3 % [facility] Plt 295 150 - 400 K/cumm [facility] MPV 10.8 9.1 - 12.3 fL [facility] RBC 3.03(L) 4.30 - 5.80 M/cumm [facility] MCV 92.1 81.3 - 96.4 fL [facility] MCH 31.4 27.1 - 33.3 pg [facility] MCHC 34.1 32.3 - 35.7 g/dL [facility] RDW CV 13.6 11.1 - 14.9 % [facility] RDW SD 45.1 35.7 - 48.1 fL [facility] NRBC abs 0.00 0.00 - 0.01 K/cumm [facility] Blood 10/29/2023 4:40 AM CHEF MANAGER 10/29/2023 5:05 AM CHEF MANAGER Tia Nolan OPERATING COST CLERK LAB BLOOD ORDERABLES F inal Result Performing Organization Address City/[facility]/ZIP Co de Phone Number [facility] [place] [employer] [place] [address] * (ABNORMAL) Basic metabolic panel (10/29/2023 4:40 AM CHEF MANAGER) [facility] Sodium 139 135 - 145 mmol/L [facility] Potassium, pl 3.5 3.3 - 4.9 mmol/L [facility] Chloride 104 97 - 110 mmol/L [facility] CO2 23 22 - 32 mmol/L [facility] Anion gap 12 2 - 15 mmol/L [facility] BUN 11 6 - 25 mg/dL [facility] Creatinine 0.88 0.80 - 1.30 mg/dL [facility] Glucose 112 70 - 199 mg/dL [facility] Comment: Interpretive Data Fasting glucose >/= [...] Calcium 8.2(L) 8.5 - 10.3 mg/dL [facility] Blood 10/29/2023 4:40 AM CHEF MANAGER 10/29/2023 5:04 AM CHEF MANAGER Tia Nolan OPERATING COST CLERK LAB BLOOD ORDERABLES F inal Result Performing Organization Address City/[facility]/ZIP Co de Phone Number [facility] [place] [employer] [place] [address] * Phosphorus (10/29/2023 4:40 AM CHEF MANAGER) Pathologist [facility] Phosphorus, pl 2.7 2.3 - 4.5 mg/dL [facility] Blood 10/29/2023 4:40 AM CHEF MANAGER 10/29/2023 5:05 AM CHEF MANAGER Tia Nolan OPERATING COST CLERK LAB BLOOD ORDERABLES F inal Result Performing Organization Address City/[facility]/ZIP Co de Phone Number [facility] Department [place] [address] * Magnesium (10/29/2023 4:40 AM CHEF MANAGER) Magnesium 1.8 1.4 - 2.5 mg/dL [facility] Blood 10/29/2023 4:40 AM CHEF MANAGER 10/29/2023 5:05 AM CHEF MANAGER us Tia Alla Nolan OPERATING COST CLERK LAB BLOOD ORDERABLES F inal Result [facility] [place] [address] * CT Head WO Contrast (10/28/2023 5:58 PM CHEF MANAGER) Anatomical Region Laterality Modality Head and Neck N/A Computed Tomogra phy 10/28/2023 8:46 PM CHEF MANAGER Impressions 10/29/2023 10:19 AM CHEF MANAGER 1. ??Thin bilateral subdural collections along the [...] Landen Perez M.D. Narrative 10/29/2023 10:19 AM CHEF MANAGER EXAMINATION: CT head without contrast HISTORY: Subdural [...] by: Landen Perez M.D. Kasey Rutledge NP [facility] CT PROCEDURES Final Result * eGFR (10/27/2023 11:32 PM CHEF MANAGER) eGFR >90 >=60 mL/min/1. 73 m2 [...] reviewed 2021. Blood 10/27/2023 11:3 2 PM CHEF MANAGER 10/28/2023 12:27 AM CHEF MANAGER Tia Nolan OPERATING COST CLERK LAB BLOOD ORDERABLES F inal Result [facility] [place] [address] * Differential, auto (10/27/2023 11:32 PM CHEF MANAGER) Pathologist [facility] Neutrophil abs 3.9 1.5 - 6.5 K/cumm [facility] Imm gran abs 0.1 0.0 - 0.1 K/cumm [facility] Lymphocyte abs 1.2 0.8 - 3.3 K/cumm [facility] Monocyte abs 0.6 0.2 - 0.8 K/cumm [facility] Eosinophil abs 0.2 0.0 - 0.5 K/cumm [facility] Basophil abs 0.0 0.0 - 0.1 K/cumm [facility] Neutrophil pct 65.9 % [facility] Comment: Interpretive Data Percent cell count reference ranges are not reported, since discordance with absolute values may lead to misinterpretation of CBC data. Current Interpretive Data was last revised on 2018. Imm gran pct 0.8 % [facility] Comment: Interpretive Data Percent cell count reference ranges are not reported, since discordance with absolute values may lead to misinterpretation of CBC data. Current Interpretive Data was last revised on 2018. Lymphocyte pct 20.3 % [facility] Comment: Interpretive Data Percent cell count reference ranges are not reported, since discordance with absolute values may lead to misinterpretation of CBC data. Current Interpretive Data was last revised on 2018. Monocyte pct 9.6 % [facility] Comment: Interpretive Data Percent cell count reference ranges are not reported, since discordance with absolute values may lead to misinterpretation of CBC data. Current Interpretive Data was last revised on 2018. Eosinophil pct 3.2 % [facility] Comment: Interpretive Data Percent cell count reference ranges are not reported, since discordance with absolute values may lead to misinterpretation of CBC data. Current Interpretive Data was last revised on 2018. Basophil pct 0.2 % [facility] Comment: Interpretive Data Percent cell count reference ranges are not reported, since discordance with absolute values may lead to misinterpretation of CBC data. Current Interpretive Data was last revised on 2018. Blood 10/27/2023 11:3 2 PM CHEF MANAGER 10/28/2023 12:26 AM CHEF MANAGER us Tia Nolan OPERATING COST CLERK LAB BLOOD ORDERABLES F inal Result [facility] [place] [address] * (ABNORMAL) CBC with auto differential (10/27/2023 11:32 PM CHEF MANAGER) WBC 6.0 3.8 - 9.9 K/cumm [facility] Hgb 8.6(L) 13.0 - 17.5 g/dL [facility] Hct 25.3(L) 38.9 - 50.3 % [facility] Plt 295 150 - 400 K/cumm [facility] MPV 11.2 9.1 - 12.3 fL [facility] RBC 2.78(L) 4.30 - 5.80 M/cumm [facility] MCV 91.0 81.3 - 96.4 fL [facility] MCH 30.9 27.1 - 33.3 pg [facility] MCHC 34.0 32.3 - 35.7 g/dL [facility] RDW CV 13.2 11.1 - 14.9 % [facility] RDW SD 44.2 35.7 - 48.1 fL [facility] NRBC abs 0.00 0.00 - 0.01 K/cumm [facility] Blood 10/27/2023 11:3 2 PM CHEF MANAGER 10/28/2023 12:26 AM CHEF MANAGER Tia Nolan OPERATING COST CLERK LAB BLOOD ORDERABLES F inal Result [facility] [place] [address] * (ABNORMAL) Basic metabolic panel (10/27/2023 11:32 PM CHEF MANAGER) Pathologist [facility] Sodium 135 135 - 145 mmol/L [facility] Potassium, pl 3.7 3.3 - 4.9 mmol/L [facility] Chloride 103 97 - 110 mmol/L [facility] CO2 26 22 - 32 mmol/L [facility] Anion gap 6 2 - 15 mmol/L [facility] BUN 11 6 - 25 mg/dL [facility] Creatinine 0.88 0.80 - 1.30 mg/dL [facility] Glucose 108 70 - 199 mg/dL [facility] Comment: Interpretive Data Fasting glucose >/= [...] Calcium 8.0(L) 8.5 - 10.3 mg/dL [facility] Blood 10/27/2023 11:3 2 PM CHEF MANAGER 10/28/2023 12:27 AM CHEF MANAGER Tia Nolan OPERATING COST CLERK LAB BLOOD ORDERABLES F inal Result Performing Organization Address City/[facility] Co de Phone Number [facility] [place] [address] * Phosphorus (10/27/2023 4:37 AM CHEF MANAGER) Pathologist [facility] Phosphorus, pl 2.5 2.3 - 4.5 mg/dL [facility] Blood 10/27/2023 4:37 AM CHEF MANAGER 10/27/2023 4:59 AM CHEF MANAGER Tia Nolan OPERATING COST CLERK LAB BLOOD ORDERABLES F inal Result Performing Organization Address [facility] Co de Phone Number [facility] [place] [address] * Magnesium (10/27/2023 4:37 AM CHEF MANAGER) Pathologist [facility] Magnesium 1.9 1.4 - 2.5 mg/dL [facility] Blood 10/27/2023 4:37 AM CHEF MANAGER 10/27/2023 4:59 AM CHEF MANAGER Tia Nolan OPERATING COST CLERK LAB BLOOD ORDERABLES F inal Result Performing Organization Address [facility] [place] [address] * (ABNORMAL) CBC without differential (10/27/2023 4:37 AM CHEF MANAGER) Pathologist [facility] WBC 7.1 3.8 - 9.9 K/cumm [facility] Hgb 9.1(L) 13.0 - 17.5 g/dL [facility] Hct 26.1(L) 38.9 - 50.3 % [facility] Plt 291 150 - 400 K/cumm [facility] MPV 11.0 9.1 - 12.3 fL [facility] RBC 2.93(L) 4.30 - 5.80 M/cumm [facility] MCV 89.1 81.3 - 96.4 fL [facility] MCH 31.1 27.1 - 33.3 pg [facility] MCHC 34.9 32.3 - 35.7 g/dL [facility] RDW CV 13.4 11.1 - 14.9 % [facility] RDW SD 43.7 35.7 - 48.1 fL [facility] NRBC abs 0.00 0.00 - 0.01 K/cumm [facility] Blood 10/27/2023 4:37 AM CHEF MANAGER 10/27/2023 5:07 AM CHEF MANAGER Narrative [facility] - 10/27/2023 5:17 AM CHEF MANAGER While on heparin infusion Tia Nolan OPERATING COST CLERK LAB BLOOD ORDERABLES F inal Result Performing Organization Address City/[facility]/ZIP Co de Phone Number [facility] Department [place] [employer] [place] [address] * Transfuse RBC (10/26/2023 10:32 PM CHEF MANAGER) Blood Hayder Vu Jr., MD BLOOD TRANSFUSION O RDERABLES Final Result [facility] Department [place] [employer] [place] [address] * Transfuse RBC: 1 Units (10/26/2023 10:32 PM CHEF MANAGER) Blood Hayder Vu Jr., MD BLOOD TRANSFUSION O RDERABLES Final Result * eGFR (10/26/2023 8:07 PM CHEF MANAGER) [facility] eGFR >90 >=60 mL/min/1. 73 m2 [facility] Comment: Interpretive Data Reference Interval Normal [...] last reviewed 2021. Blood 10/26/2023 8:07 PM CHEF MANAGER 10/26/2023 9:01 PM CHEF MANAGER us Tia Nolan NP LAB BLOOD ORDERABLES F inal Result [facility] Department [place] [address] * (ABNORMAL) Differential, auto (10/26/2023 8:07 PM CHEF MANAGER) Neutrophil abs 6.7(H) 1.5 - 6.5 K/cumm [facility] Imm gran abs 0.1 0.0 - 0.1 K/cumm [facility] Lymphocyte abs 1.1 0.8 - 3.3 K/cumm [facility] Monocyte abs 0.7 0.2 - 0.8 K/cumm [facility] Eosinophil abs 0.1 0.0 - 0.5 K/cumm [facility] Basophil abs 0.0 0.0 - 0.1 K/cumm [facility] Neutrophil pct 77.6 % [facility] Comment: Interpretive Data Percent cell count reference ranges are not reported, since discordance with absolute values may lead to misinterpretation of CBC data. Current Interpretive Data was last revised on 2018. Imm gran pct 0.6 % [facility] Comment: Interpretive Data Percent cell count reference ranges are not reported, since discordance with absolute values may lead to misinterpretation of CBC data. Current Interpretive Data was last revised on 2018. Lymphocyte pct 12.5 % [facility] Comment: Interpretive Data Percent cell count reference ranges are not reported, since discordance with absolute values may lead to misinterpretation of CBC data. Current Interpretive Data was last revised on 2018. Monocyte pct 7.8 % [facility] Comment: Interpretive Data Percent cell count reference ranges are not reported, since discordance with absolute values may lead to misinterpretation of CBC data. Current Interpretive Data was last revised on 2018. Eosinophil pct 1.0 % [facility] Comment: Interpretive Data Percent cell count reference ranges are not reported, since discordance with absolute values may lead to misinterpretation of CBC data. Current Interpretive Data was last revised on 2018. Basophil pct 0.5 % [facility] Comment: Interpretive Data Percent cell count reference ranges are not reported, since discordance with absolute values may lead to misinterpretation of CBC data. Current Interpretive Data was last revised on 2018. Blood 10/26/2023 8:07 PM CHEF MANAGER 10/26/2023 9:00 PM CHEF MANAGER us Tia Nolan NP LAB BLOOD ORDERABLES F inal Result [facility] Department [place] [address] * (ABNORMAL) CBC with auto differential (10/26/2023 8:07 PM CHEF MANAGER) [facility] WBC 8.6 3.8 - 9.9 K/cumm [facility] Hgb 9.5(L) 13.0 - 17.5 g/dL [facility] Hct 27.6(L) 38.9 - 50.3 % [facility] Plt 313 150 - 400 K/cumm [facility] MPV 11.2 9.1 - 12.3 fL [facility] RBC 3.08(L) 4.30 - 5.80 M/cumm [facility] MCV 89.6 81.3 - 96.4 fL [facility] MCH 30.8 27.1 - 33.3 pg [facility] MCHC 34.4 32.3 - 35.7 g/dL [facility] RDW CV 13.3 11.1 - 14.9 % [facility] RDW SD 43.5 35.7 - 48.1 fL [facility] NRBC abs 0.00 0.00 - 0.01 K/cumm [facility] Blood 10/26/2023 8:07 PM CHEF MANAGER 10/26/2023 9:00 PM CHEF MANAGER us Tia Nolan OPERATING COST CLERK LAB BLOOD ORDERABLES F inal Result [facility] [place] [address] * (ABNORMAL) Basic metabolic panel (10/26/2023 8:07 PM CHEF MANAGER) [facility] Sodium 137 135 - 145 mmol/L [facility] Potassium, pl 3.5 3.3 - 4.9 mmol/L [facility] Chloride 104 97 - 110 mmol/L [facility] CO2 26 22 - 32 mmol/L [facility] Anion gap 7 2 - 15 mmol/L [facility] BUN 11 6 - 25 mg/dL [facility] Creatinine 0.86 0.80 - 1.30 mg/dL [facility] Glucose 132 70 - 199 mg/dL [facility] Comment: Interpretive Data Fasting glucose >/= [...] Calcium 8.2(L) 8.5 - 10.3 mg/dL [facility] Blood 10/26/2023 8:07 PM CHEF MANAGER 10/26/2023 9:01 PM CHEF MANAGER us Tia Nolan OPERATING COST CLERK LAB BLOOD ORDERABLES F inal Result [facility] Department [place] [address] * eGFR (10/26/2023 5:28 PM CHEF MANAGER) eGFR 90 >=60 mL/min/1. 73 m2 [facility] Comment: Interpretive Data Reference Interval Normal [...] last reviewed 2021. Blood 10/26/2023 5:28 PM CHEF MANAGER 10/26/2023 6:00 PM CHEF MANAGER Kasey Rutledge NP LAB BLOOD ORDERABLES Final Resu lt Performing Organization Address [facility] Co de Phone Number [facility] [place] [address] * Creatinine (10/26/2023 5:28 PM CHEF MANAGER) Creatinine 0.91 0.80 - 1.30 mg/dL [facility] Blood 10/26/2023 5:28 PM CHEF MANAGER 10/26/2023 6:00 PM CHEF MANAGER Narrative [facility] - 10/26/2023 6:31 PM CHEF MANAGER Baseline prior to enoxaparin initiation. Kasey Rutledge NP LAB BLOOD ORDERABLES Final Resu Performing Organization Address [facility] de Phone Number [facility] [place] [address] * (ABNORMAL) aPTT (10/26/2023 5:28 PM CHEF MANAGER) aPTT 64(H) 28 - 38 sec [facility] Comment: Interpretive Data Heparin therapeutic range: 66.0 - 100.0 seconds. Range based on correlation with therapeutic heparin activity range of 0.3 - 0.7 Units/mL. Current interpretive data was last revised on 2023. Blood 10/26/2023 5:28 PM CHEF MANAGER 10/26/2023 6:09 PM CHEF MANAGER Narrative [facility] - 10/26/2023 6:18 PM CHEF MANAGER Baseline prior to enoxaparin initiation. Kasey Rutledge NP LAB BLOOD ORDERABLES Final Resu lt [facility] [place] [address] * (ABNORMAL) CBC without differential (10/26/2023 5:28 PM CHEF MANAGER) WBC 9.1 3.8 - 9.9 K/cumm [facility] Hgb 9.6(L) 13.0 - 17.5 g/dL [facility] Hct 28.3(L) 38.9 - 50.3 % [facility] Plt 321 150 - 400 K/cumm [facility] MPV 11.4 9.1 - 12.3 fL [facility] RBC 3.16(L) 4.30 - 5.80 M/cumm [facility] MCV 89.6 81.3 - 96.4 fL [facility] MCH 30.4 27.1 - 33.3 pg [facility] MCHC 33.9 32.3 - 35.7 g/dL [facility] RDW CV 13.2 11.1 - 14.9 % [facility] RDW SD 43.6 35.7 - 48.1 fL [facility] NRBC abs 0.00 0.00 - 0.01 K/cumm [facility] Blood 10/26/2023 5:28 PM CHEF MANAGER 10/26/2023 6:01 PM CHEF MANAGER Narrative [facility] - 10/26/2023 6:09 PM CHEF MANAGER Baseline prior to enoxaparin initiation. Kasey Rutledge NP LAB BLOOD ORDERABLES Final Resu lt [facility] [place] [address] * Protime-INR (10/26/2023 5:28 PM CHEF MANAGER) PT 13.2 10.3 - 13.7 sec [facility] INR 1.16 0.90 - 1.20 [facility] Comment: Interpretive data Oral anticoagulant therapeutic ranges: Venous thromboembolism prophylaxis or treatment: 2.0-3.0 CARDIOLOGY Standard range: 2.0-3.0 High-intensity range: 2.5-3.5 Refer to indication-specific guidelines for appropriate target ranges for prosthetic heart valve replacement. Current interpretive data was last revised on 2019. Blood 10/26/2023 5:28 PM CHEF MANAGER 10/26/2023 6:09 PM CHEF MANAGER Narrative [facility] - 10/26/2023 6:18 PM CHEF MANAGER Baseline prior to enoxaparin initiation. us Kasey Rutledge NP LAB BLOOD ORDERABLES Final Resu lt [facility] [place] [address] * (ABNORMAL) Differential, auto (10/26/2023 2:43 PM CHEF MANAGER) Neutrophil abs 8.1(H) 1.5 - 6.5 K/cumm [facility] Imm gran abs 0.1 0.0 - 0.1 K/cumm [facility] Lymphocyte abs 0.9 0.8 - 3.3 K/cumm [facility] Monocyte abs 0.7 0.2 - 0.8 K/cumm [facility] Eosinophil abs 0.2 0.0 - 0.5 K/cumm [facility] Basophil abs 0.0 0.0 - 0.1 K/cumm [facility] Neutrophil pct 81.9 % [facility] Comment: Interpretive Data Percent cell count reference ranges are not reported, since discordance with absolute values may lead to misinterpretation of CBC data. Current Interpretive Data was last revised on 2018. Imm gran pct 0.6 % [facility] Comment: Interpretive Data Percent cell count reference ranges are not reported, since discordance with absolute values may lead to misinterpretation of CBC data. Current Interpretive Data was last revised on 2018. Lymphocyte pct 9.0 % [facility] Comment: Interpretive Data Percent cell count reference ranges are not reported, since discordance with absolute values may lead to misinterpretation of CBC data. Current Interpretive Data was last revised on 2018. Monocyte pct 6.6 % [facility] Comment: Interpretive Data Percent cell count reference ranges are not reported, since discordance with absolute values may lead to misinterpretation of CBC data. Current Interpretive Data was last revised on 2018. Eosinophil pct 1.5 % [facility] Comment: Interpretive Data Percent cell count reference ranges are not reported, since discordance with absolute values may lead to misinterpretation of CBC data. Current Interpretive Data was last revised on 2018. Basophil pct 0.4 % [facility] Comment: Interpretive Data Percent cell count reference ranges are not reported, since discordance with absolute values may lead to misinterpretation of CBC data. Current Interpretive Data was last revised on 2018. Blood 10/26/2023 2:43 PM CHEF MANAGER 10/26/2023 2:56 PM CHEF MANAGER us Kasey Rutledge OPERATING COST CLERK LAB BLOOD ORDERABLES Final Resu lt [facility] Department [place] [address] * (ABNORMAL) CBC with auto differential (10/26/2023 2:43 PM CHEF MANAGER) WBC 9.9 3.8 - 9.9 K/cumm [facility] Hgb 9.3(L) 13.0 - 17.5 g/dL [facility] Hct 27.2(L) 38.9 - 50.3 % [facility] Plt 310 150 - 400 K/cumm [facility] MPV 11.0 9.1 - 12.3 fL [facility] RBC 3.01(L) 4.30 - 5.80 M/cumm [facility] MCV 90.4 81.3 - 96.4 fL [facility] MCH 30.9 27.1 - 33.3 pg [facility] MCHC 34.2 32.3 - 35.7 g/dL [facility] RDW CV 13.0 11.1 - 14.9 % [facility] RDW SD 43.3 35.7 - 48.1 fL [facility] NRBC abs 0.00 0.00 - 0.01 K/cumm [facility] Blood 10/26/2023 2:43 PM CHEF MANAGER 10/26/2023 2:56 PM CHEF MANAGER Narrative [facility] - 10/26/2023 3:05 PM CHEF MANAGER Please draw one hour after second unit of PRBC's Kasey Rutledge OPERATING COST CLERK LAB BLOOD ORDERABLES Final Resu lt Performing Organization Address [facility] de Phone Number [facility] Department [place] [address] * Transfuse RBC (10/26/2023 1:41 PM CHEF MANAGER) Blood Hayder Vu Jr., MD BLOOD TRANSFUSION O RDERABLES Final Result Performing Organization Address [facility] de Phone Number [facility] Department [place] [address] * Transfuse RBC: 1 Units (10/26/2023 1:41 PM CHEF MANAGER) Blood Hayder Vu Jr., MD BLOOD TRANSFUSION O RDERABLES Final Result * (ABNORMAL) aPTT (10/26/2023 11:09 AM CHEF MANAGER) aPTT 74(H) 28 - 38 sec [facility] Comment: Interpretive Data Heparin therapeutic range: 66.0 - 100.0 seconds. Range based on correlation with therapeutic heparin activity range of 0.3 - 0.7 Units/mL. Current interpretive data was last revised on 2023. Blood 10/26/2023 11:0 9 AM CHEF MANAGER 10/26/2023 11:38 AM CHEF MANAGER Ca Ruano MD PhD LAB BLOOD ORDERABLES Final Result Performing Organization Address [facility] Co de Phone Number [facility] Department [place] [address] * Prepare RBC: 1 Units (10/26/2023 4:46 AM CHEF MANAGER) Product code [id number] Unit Number [id number] * [facility] Product Blood Type OPOS [facility] Dispense Status PRESUMED TRANSFUSED [facility] Blood 10/26/2023 4:46 AM CHEF MANAGER 10/26/2023 4:45 AM CHEF MANAGER Narrative [facility] - 10/26/2023 4:02 PM CHEF MANAGER Are special requirements needed? (All products are leukoreduced and CMV- safe)- >No Date required:-20231026 LRRBC # of [id number] Reasons:-Active bleeding, Hgb <8 g/dL} Hayder Vu Jr., MD BLOOD BANK PRODUCT ORDERABLES Final Result Performing Organization Address [facility] de Phone Number [facility] Department [place] [address] * Prepare RBC: 1 Units (10/26/2023 3:03 AM CHEF MANAGER) Product code [id number] Unit Number [id number] [facility] Product Blood Type OPOS [facility] Dispense Status PRESUMED TRANSFUSED [facility] Blood 10/26/2023 3:03 AM CHEF MANAGER 10/26/2023 3:03 AM CHEF MANAGER Narrative [facility] - 10/26/2023 4:01 PM CHEF MANAGER Are special requirements needed? (All products are leukoreduced and CMV- safe)- >No Date required:-20231026 LRRBC # of [id number] Reasons:-Hgb <7 g/dL} Hayder Vu Jr., MD BLOOD BANK PRODUCT ORDERABLES Final Result Performing Organization Address [facility] Co de Phone Number [facility] [place] [address] * (ABNORMAL) aPTT (10/26/2023 2:21 AM CHEF MANAGER) Pathologist [facility] aPTT 58(H) 28 - 38 sec [facility] Comment: Interpretive Data Heparin therapeutic range: 66.0 - 100.0 seconds. Range based on correlation with therapeutic heparin activity range of 0.3 - 0.7 Units/mL. Current interpretive data was last revised on 2023. Blood 10/26/2023 2:21 AM CHEF MANAGER 10/26/2023 2:32 AM CHEF MANAGER Narrative [facility] - 10/26/2023 2:54 AM CHEF MANAGER Draw STAT PTT 6 hrs after initiation of heparin infusion, draw STAT PTT 6 hours after each dose change, and every 6 hours until 2 consecutive PTTs are within therapeutic range. Once two consecutive PTT's are therapeutic (66-100 seconds), then draw PTT every AM until heparin is discontinued. us Hayder Vu Jr., MD LAB BLOOD [place] [address] * Type and screen (10/26/2023 2:21 AM CHEF MANAGER) Pathologist [facility] Jigna, indirect Negative ABO Rh O Positive [facility] Blood 10/26/2023 2:21 AM CHEF MANAGER 10/26/2023 2:32 AM CHEF MANAGER Narrative [facility] - 10/26/2023 3:20 AM CHEF MANAGER Has the patient had Daratumumab or Isatuximab in the past 6 months?->Unknown us Tia Nolan NP LAB BLOOD BANK TEST [place] [address] * (ABNORMAL) CBC without differential (10/26/2023 2:21 AM CHEF MANAGER) [facility] WBC 9.0 3.8 - 9.9 K/cumm [facility] Hgb 6.7(L) 13.0 - 17.5 g/dL [facility] Hct 19.6(L) 38.9 - 50.3 % [facility] Plt 297 150 - 400 K/cumm [facility] MPV 10.9 9.1 - 12.3 fL [facility] RBC 2.15(L) 4.30 - 5.80 M/cumm [facility] MCV 91.2 81.3 - 96.4 fL [facility] MCH 31.2 27.1 - 33.3 pg [facility] MCHC 34.2 32.3 - 35.7 g/dL [facility] RDW CV 12.5 11.1 - 14.9 % [facility] RDW SD 41.9 35.7 - 48.1 fL [facility] NRBC abs 0.00 0.00 - 0.01 K/cumm [facility] Blood 10/26/2023 2:21 AM CHEF MANAGER 10/26/2023 2:40 AM CHEF MANAGER Tia Nolan OPERATING COST CLERK LAB BLOOD ORDERABLES F inal Result Performing Organization Address [facility] Co de Phone Number [facility] [place] [employer] [place] [address] * Phosphorus (10/26/2023 2:21 AM CHEF MANAGER) [facility] Phosphorus, pl 2.3 2.3 - 4.5 mg/dL [facility] Blood 10/26/2023 2:21 AM CHEF MANAGER 10/26/2023 2:40 AM CHEF MANAGER Tia Nolan OPERATING COST CLERK LAB BLOOD ORDERABLES F inal Result Performing Organization Address [facility] Co de Phone Number [facility] [place] [employer] [place] [address] * Magnesium (10/26/2023 2:21 AM CHEF MANAGER) Magnesium 1.8 1.4 - 2.5 mg/dL [facility] Blood 10/26/2023 2:21 AM CHEF MANAGER 10/26/2023 2:40 AM CHEF MANAGER Tia Nolan OPERATING COST CLERK LAB BLOOD ORDERABLES F inal Result Performing Organization Address [facility] Co de Phone Number [facility] Department [place] [address] * Potassium, whole blood (10/25/2023 10:11 PM CHEF MANAGER) Potassium, bld 3.5 3.3 - 4.9 mmol/L [facility] Blood 10/25/2023 10:1 1 PM CHEF MANAGER 10/25/2023 10:19 PM CHEF MANAGER Tia Nolan OPERATING COST CLERK LAB BLOOD ORDERABLES F inal Result Performing Organization Address [facility] [facility] de Phone Number [facility] [place] [employer] [place] [address] * Critical Care (10/25/2023 9:09 PM CHEF MANAGER) Narrative Wilder Arceo Jr., MD - 10/25/2023 9:09 PM CHEF MANAGER Tia Nolan NP ? 10/26/2023 12:17 AM [...] plan with the patient's team and other medical/cloud consultant staff. This time was in addition [...] in the medical record us Tia Nolan OPERATING COST CLERK IN CLINIC/BEDSIDE JOSE PRUITT Final Result * eGFR (10/25/2023 8:41 PM CHEF MANAGER) [facility] eGFR >90 >=60 mL/min/1. 73 m2 [facility] Comment: Interpretive Data Reference Interval Normal [...] last reviewed 2021. Blood 10/25/2023 8:41 PM CHEF MANAGER 10/25/2023 8:58 PM CHEF MANAGER us Oneyda Foley NP LAB BLOOD ORDERABLES Final Res ult [facility] One [facility] [place] [address] * (ABNORMAL) Differential, auto (10/25/2023 8:41 PM CHEF MANAGER) Neutrophil abs 7.3(H) 1.5 - 6.5 K/cumm [facility] Imm gran abs 0.1 0.0 - 0.1 K/cumm [facility] Lymphocyte abs 1.6 0.8 - 3.3 K/cumm [facility] Monocyte abs 0.8 0.2 - 0.8 K/cumm [facility] Eosinophil abs 0.3 0.0 - 0.5 K/cumm [facility] Basophil abs 0.0 0.0 - 0.1 K/cumm [facility] Neutrophil pct 72.9 % [facility] Comment: Interpretive Data Percent cell count reference ranges are not reported, since discordance with absolute values may lead to misinterpretation of CBC data. Current Interpretive Data was last revised on 2018. Imm gran pct 0.5 % [facility] Comment: Interpretive Data Percent cell count reference ranges are not reported, since discordance with absolute values may lead to misinterpretation of CBC data. Current Interpretive Data was last revised on 2018. Lymphocyte pct 15.7 % [facility] Comment: Interpretive Data Percent cell count [...] on 2018. Eosinophil pct 2.7 % [facility] Comment: Interpretive Data Percent cell count [...] revised on 2018. Blood 10/25/2023 8:41 PM CHEF MANAGER 10/25/2023 8:58 PM CHEF MANAGER us Oneyda Foley OPERATING COST CLERK LAB BLOOD ORDERABLES Final Res ult Performing Organization Address [facility] Co de Phone Number [facility] [place] [address] * (ABNORMAL) CBC with auto differential (10/25/2023 8:41 PM CHEF MANAGER) Pathologist [facility] WBC 10.0(H) 3.8 - 9.9 K/cumm [facility] Hgb 7.0(L) 13.0 - 17.5 g/dL [facility] Hct 19.7(L) 38.9 - 50.3 % [facility] Plt 320 150 - 400 K/cumm [facility] MPV 11.6 9.1 - 12.3 fL [facility] RBC 2.14(L) 4.30 - 5.80 M/cumm [facility] MCV 92.1 81.3 - 96.4 fL [facility] MCH 32.7 27.1 - 33.3 pg [facility] MCHC 35.5 32.3 - 35.7 g/dL [facility] RDW CV 12.6 11.1 - 14.9 % [facility] RDW SD 42.2 35.7 - 48.1 fL [facility] NRBC abs 0.00 0.00 - 0.01 K/cumm [facility] Blood 10/25/2023 8:41 PM CHEF MANAGER 10/25/2023 8:58 PM CHEF MANAGER us Tia Nolan OPERATING COST CLERK LAB BLOOD ORDERABLES F inal Result Performing Organization Address [facility]/ZIP Co de Phone Number [facility] Department [place] [address] * (ABNORMAL) Basic metabolic panel (10/25/2023 8:41 PM CHEF MANAGER) Pathologist [facility] Sodium 133(L) 135 - 145 mmol/L [facility] Potassium, pl See Comment 3.3 - 4.9 mmol/L [facility] Comment:Credited; Hemolyzed Specimen Chloride 103 97 - 110 mmol/L [facility] CO2 26 22 - 32 mmol/L [facility] Anion gap 4 2 - 15 mmol/L [facility] BUN 13 6 - 25 mg/dL [facility] Creatinine 0.86 0.80 - 1.30 mg/dL [facility] Glucose 157 70 - 199 mg/dL [facility] Comment: Interpretive Data Fasting glucose >/= [...] 2022. Calcium 7.8(L) 8.5 - 10.3 mg/dL [facility] Blood 10/25/2023 8:41 PM CHEF MANAGER 10/25/2023 8:58 PM CHEF MANAGER us Tia Nolan OPERATING COST CLERK LAB BLOOD ORDERABLES F inal Result [facility] Department [place] [address] * POCT glucose (10/25/2023 7:22 PM CHEF MANAGER) Glucose, POC 162 70 - 199 mg/dL [facility] Blood 10/25/2023 7:22 PM CHEF MANAGER 10/25/2023 7:22 PM CHEF MANAGER us Hayder Vu Jr., MD LAB POCT ORDERABLES - DEVICE Final Result Performing Organization Address [facility]/ZIP Co de Phone Number [facility] Department [place] [address] * Critical Care (10/25/2023 6:45 PM CHEF MANAGER) Narrative Luana Brady NP - 10/25/2023 6:45 PM CHEF MANAGER Luana Brady NP ? 10/25/2023 ??6:45 PM [...] plan with the patient's team and other medical/cloud consultant staff. This time was in addition to and separate from care provided by other practitioners on this day of service. ?? us Luana Brady NP IN CLINIC/BEDSIDE ORDERABLES Final Result * (ABNORMAL) aPTT (10/25/2023 4:59 PM CHEF MANAGER) aPTT 62(H) 28 - 38 sec [facility] Comment: Interpretive Data Heparin therapeutic range: 66.0 - 100.0 seconds. Range based on correlation with therapeutic heparin activity range of 0.3 - 0.7 Units/mL. Current interpretive data was last revised on 2023. Blood 10/25/2023 4:59 PM CHEF MANAGER 10/25/2023 5:12 PM CHEF MANAGER Narrative [facility] - 10/25/2023 5:34 PM CHEF MANAGER Draw STAT PTT 6 hrs after initiation of heparin infusion, draw STAT PTT 6 hours after each dose change, and every 6 hours until 2 consecutive PTTs are within therapeutic range. Once two consecutive PTT's are therapeutic (66-100 seconds), then draw PTT every AM until heparin is discontinued. us Hayder Vu Jr., MD LAB BLOOD ORDERABLE S Final Result [facility] Department [place] [address] * POCT glucose (10/25/2023 3:09 PM CHEF MANAGER) Glucose, POC 118 70 - 199 mg/dL [facility] Blood 10/25/2023 3:09 PM CHEF MANAGER 10/25/2023 3:09 PM CHEF MANAGER us Hayder Vu Jr., MD LAB POCT ORDERABLES - DEVICE Final Result Performing Organization Address [facility] Co de Phone Number [facility] [place] [address] * MRI Brain Epilepsy W WO Contrast (10/25/2023 1:55 PM CHEF MANAGER) Anatomical Region Laterality Modality Head and Neck N/A Magnetic Resonan ce 10/25/2023 2:57 PM CHEF MANAGER Impressions 10/25/2023 3:42 PM CHEF MANAGER 1. ??Thin bilateral convexity subdural hematomas, not [...] Francia Schmitz M.D. Narrative 10/25/2023 3:42 PM CHEF MANAGER EXAMINATION: Magnetic resonance imaging (MRI) of the [...] Result * POCT glucose (10/25/2023 10:57 AM CHEF MANAGER) [facility] Glucose, POC 195 70 - 199 mg/dL [facility] Blood 10/25/2023 10:5 7 AM CHEF MANAGER 10/25/2023 10:57 AM CHEF MANAGER Hayder Vu Jr., MD LAB POCT ORDERABLES - DEVICE Final Result [facility] One [facility] Department [place] [address] * (ABNORMAL) Differential, auto (10/25/2023 10:14 AM CHEF MANAGER) [facility] Neutrophil abs 10.6(H) 1.5 - 6.5 K/cumm [facility] Imm gran abs 0.1 0.0 - 0.1 K/cumm [facility] Lymphocyte abs 1.5 0.8 - 3.3 K/cumm [facility] Monocyte abs 0.9(H) 0.2 - 0.8 K/cumm [facility] Eosinophil abs 0.2 0.0 - 0.5 K/cumm [facility] Basophil abs 0.1 0.0 - 0.1 K/cumm [facility] Neutrophil pct 79.5 % [facility] Comment: Interpretive Data Percent cell count [...] on 2018. Blood 10/25/2023 10:1 4 AM CHEF MANAGER 10/25/2023 10:27 AM CHEF MANAGER Hayder Vu Jr., MD LAB BLOOD ORDERABLE S Final Result [facility] Department [place] [address] * (ABNORMAL) aPTT (10/25/2023 10:14 AM CHEF MANAGER) aPTT 60(H) 28 - 38 sec [facility] Comment: Interpretive Data Heparin therapeutic range: 66.0 - 100.0 seconds. Range based on correlation with therapeutic heparin activity range of 0.3 - 0.7 Units/mL. Current interpretive data was last revised on 2023. Blood 10/25/2023 10:1 4 AM CHEF MANAGER 10/25/2023 10:27 AM CHEF MANAGER Narrative [facility] - 10/25/2023 10:56 AM CHEF MANAGER Draw STAT PTT 6 hrs after initiation of heparin infusion, draw STAT PTT 6 hours after each dose change, and every 6 hours until 2 consecutive PTTs are within therapeutic range. Once two consecutive PTT's are therapeutic (66-100 seconds), then draw PTT every AM until heparin is discontinued. us Hayder Vu Jr., MD LAB BLOOD ORDERABLE S Final Result [facility] One [facility] Department [place] [address] * (ABNORMAL) CBC with auto differential (10/25/2023 10:14 AM CHEF MANAGER) WBC 13.3(H) 3.8 - 9.9 K/cumm [facility] Hgb 8.2(L) 13.0 - 17.5 g/dL [facility] Hct 24.1(L) 38.9 - 50.3 % [facility] Plt 367 150 - 400 K/cumm [facility] MPV 11.0 9.1 - 12.3 fL [facility] RBC 2.57(L) 4.30 - 5.80 M/cumm [facility] MCV 93.8 81.3 - 96.4 fL [facility] MCH 31.9 27.1 - 33.3 pg [facility] MCHC 34.0 32.3 - 35.7 g/dL [facility] RDW CV 12.4 11.1 - 14.9 % [facility] RDW SD 43.0 35.7 - 48.1 fL [facility] NRBC abs 0.00 0.00 - 0.01 K/cumm [facility] Blood 10/25/2023 10:1 4 AM CHEF MANAGER 10/25/2023 10:27 AM CHEF MANAGER Hayder Vu Jr., MD LAB BLOOD ORDERABLE S Final Result [facility] Department [place] [address] * XR Chest 1 View (10/25/2023 9:52 AM CHEF MANAGER) Anatomical Region Laterality Modality Body, Chest N/A Computed Radiogr aphy 10/25/2023 11:1 3 AM CHEF MANAGER Impressions 10/25/2023 11:23 AM CHEF MANAGER Comparison made to chest radiograph 10/22/2023 at [...] Keely Williamson M.D. Narrative 10/25/2023 11:23 AM CHEF MANAGER EXAMINATION: 1 view chest radiograph Procedure Note [...] Result * POCT glucose (10/25/2023 6:58 AM CHEF MANAGER) Glucose, POC 129 70 - 199 mg/dL [facility] Blood 10/25/2023 6:58 AM CHEF MANAGER 10/25/2023 6:58 AM CHEF MANAGER Hayder Vu Jr., MD LAB POCT ORDERABLES - DEVICE Final Result Performing Organization Address City/[facility] Co de Phone Number [facility] [place] [employer] [place] [address] * POCT glucose (10/25/2023 3:44 AM CHEF MANAGER) Glucose, POC 102 70 - 199 mg/dL [facility] Blood 10/25/2023 3:44 AM CHEF MANAGER 10/25/2023 3:44 AM CHEF MANAGER Hayder Vu Jr., MD LAB POCT ORDERABLES - DEVICE Final Result Performing Organization Address [facility] Phone Number [facility] [place] [employer] [place] [address] * (ABNORMAL) aPTT (10/25/2023 3:14 AM CHEF MANAGER) aPTT 47(H) 28 - 38 sec [facility] Comment: Interpretive Data Heparin therapeutic range: 66.0 - 100.0 seconds. Range based on correlation with therapeutic heparin activity range of 0.3 - 0.7 Units/mL. Current interpretive data was last revised on 2023. Blood 10/25/2023 3:14 AM CHEF MANAGER 10/25/2023 3:25 AM CHEF MANAGER Narrative [facility] - 10/25/2023 3:47 AM CHEF MANAGER Draw STAT PTT 6 hrs after initiation of heparin infusion, draw STAT PTT 6 hours after each dose change, and every 6 hours until 2 consecutive PTTs are within therapeutic range. Once two consecutive PTT's are therapeutic (66-100 seconds), then draw PTT every AM until heparin is discontinued. us Hayder Vu Jr., MD LAB BLOOD ORDERABLE S Final Result Performing Organization Address [facility] Co de Phone Number [facility] [place] [address] * POCT glucose (10/24/2023 11:45 PM CHEF MANAGER) Glucose, POC 141 70 - 199 mg/dL [facility] Blood 10/24/2023 11:4 5 PM CHEF MANAGER 10/24/2023 11:45 PM CHEF MANAGER Hayder Vu Jr., MD LAB POCT ORDERABLES - DEVICE Final Result [facility] One [facility] Department [place] [address] * Critical Care (10/24/2023 11:00 PM CHEF MANAGER) Narrative Wilder Arceo Jr., MD - 10/24/2023 11:00 PM CHEF MANAGER Wilder Arceo Jr., MD ? 10/25/2023 12:47 [...] plan with the ICU team and other medical/cloud consultant staff, making frequent assessments and decisions [...] Acute pain/acute postoperative pain and Seizure ?? [id number] mycardial infarction (Non-STEMI) and Cardiac arrest ?? [...] * (ABNORMAL) Calcium, ionized (10/24/2023 9:11 PM CHEF MANAGER) [facility] Calcium, Ionized 4.38(L) 4.50 - 5.10 mg/dL [facility] Blood 10/24/2023 9:11 PM CHEF MANAGER 10/24/2023 9:18 PM CHEF MANAGER Hayder Vu Jr., MD LAB BLOOD ORDERABLE S Final Result Performing Organization Address [facility] Co de Phone Number [facility] Department [place] [address] * POCT glucose (10/24/2023 7:42 PM CHEF MANAGER) [facility] Glucose, POC 122 70 - 199 mg/dL [facility] Blood 10/24/2023 7:42 PM CHEF MANAGER 10/24/2023 7:42 PM CHEF MANAGER Hayder Vu Jr., MD LAB POCT ORDERABLES - DEVICE Final Result Performing Organization Address [facility] Co de Phone Number [facility] Department [place] [address] * (ABNORMAL) Basic metabolic panel (10/24/2023 7:06 PM CHEF MANAGER) [facility] Sodium 136 135 - 145 mmol/L [facility] Potassium, pl 3.7 3.3 - 4.9 mmol/L [facility] Chloride 104 97 - 110 mmol/L [facility] CO2 25 22 - 32 mmol/L [facility] Anion gap 7 2 - 15 mmol/L [facility] BUN 13 6 - 25 mg/dL [facility] Creatinine 0.94 0.80 - 1.30 mg/dL [facility] Glucose 126 70 - 199 mg/dL [facility] Comment: Interpretive Data Fasting glucose >/= [...] 2022. Calcium 8.1(L) 8.5 - 10.3 mg/dL [facility] Blood 10/24/2023 7:06 PM CHEF MANAGER 10/24/2023 7:12 PM CHEF MANAGER Hayder Vu Jr., MD LAB BLOOD ORDERABLE S Final Result [facility] One [facility] [place] [address] * eGFR (10/24/2023 7:06 PM CHEF MANAGER) eGFR 86 >=60 mL/min/1. 73 m2 [facility] Comment: Interpretive Data Reference Interval Normal [...] last reviewed 2021. Blood 10/24/2023 7:06 PM CHEF MANAGER 10/24/2023 7:16 PM CHEF MANAGER us Hayder Vu Jr., MD LAB BLOOD ORDERABLE S Final Result [facility] One [facility] Department [place] [address] * (ABNORMAL) Differential, auto (10/24/2023 7:06 PM CHEF MANAGER) Neutrophil abs 10.4(H) 1.5 - 6.5 K/cumm [facility] Imm gran abs 0.1 0.0 - 0.1 K/cumm [facility] Lymphocyte abs 1.2 0.8 - 3.3 K/cumm [facility] Monocyte abs 0.9(H) 0.2 - 0.8 K/cumm [facility] Eosinophil abs 0.1 0.0 - 0.5 K/cumm [facility] Basophil abs 0.1 0.0 - 0.1 K/cumm [facility] Neutrophil pct 82.0 % [facility] Comment: Interpretive Data Percent cell count reference ranges are not reported, since discordance with absolute values may lead to misinterpretation of CBC data. Current Interpretive Data was last revised on 2018. Imm gran pct 0.5 % [facility] Comment: Interpretive Data Percent cell count reference ranges are not reported, since discordance with absolute values may lead to misinterpretation of CBC data. Current Interpretive Data was last revised on 2018. Lymphocyte pct 9.7 % [facility] Comment: Interpretive Data Percent cell count reference ranges are not reported, since discordance with absolute values may lead to misinterpretation of CBC data. Current Interpretive Data was last revised on 2018. Monocyte pct 6.9 % [facility] Comment: Interpretive Data Percent cell count reference ranges are not reported, since discordance with absolute values may lead to misinterpretation of CBC data. Current Interpretive Data was last revised on 2018. Eosinophil pct 0.4 % [facility] Comment: Interpretive Data Percent cell count reference ranges are not reported, since discordance with absolute values may lead to misinterpretation of CBC data. Current Interpretive Data was last revised on 2018. Basophil pct 0.5 % [facility] Comment: Interpretive Data Percent cell count reference ranges are not reported, since discordance with absolute values may lead to misinterpretation of CBC data. Current Interpretive Data was last revised on 2018. Blood 10/24/2023 7:06 PM CHEF MANAGER 10/24/2023 7:16 PM CHEF MANAGER Oneyda Foley OPERATING COST CLERK LAB BLOOD ORDERABLES Final Res ult [facility] [place] [address] * Phosphorus (10/24/2023 7:06 PM CHEF MANAGER) Phosphorus, pl 3.3 2.3 - 4.5 mg/dL [facility] Blood 10/24/2023 7:06 PM CHEF MANAGER 10/24/2023 7:12 PM CHEF MANAGER Tia Nolan OPERATING COST CLERK LAB BLOOD ORDERABLES F inal Result [facility] Department [place] [address] * Magnesium (10/24/2023 7:06 PM CHEF MANAGER) Magnesium 2.1 1.4 - 2.5 mg/dL [facility] Blood 10/24/2023 7:06 PM CHEF MANAGER 10/24/2023 7:12 PM CHEF MANAGER Tia Nolan OPERATING COST CLERK LAB BLOOD ORDERABLES F inal Result Performing Organization Address [facility] Co de Phone Number [facility] Department [place] [address] * (ABNORMAL) CBC with auto differential (10/24/2023 7:06 PM CHEF MANAGER) [facility] WBC 12.7(H) 3.8 - 9.9 K/cumm [facility] Hgb 7.6(L) 13.0 - 17.5 g/dL [facility] Hct 22.1(L) 38.9 - 50.3 % [facility] Plt 332 150 - 400 K/cumm [facility] MPV 10.8 9.1 - 12.3 fL [facility] RBC 2.42(L) 4.30 - 5.80 M/cumm [facility] MCV 91.3 81.3 - 96.4 fL [facility] MCH 31.4 27.1 - 33.3 pg [facility] MCHC 34.4 32.3 - 35.7 g/dL [facility] RDW CV 12.5 11.1 - 14.9 % [facility] RDW SD 42.5 35.7 - 48.1 fL [facility] NRBC abs 0.00 0.00 - 0.01 K/cumm [facility] Blood 10/24/2023 7:06 PM CHEF MANAGER 10/24/2023 7:16 PM CHEF MANAGER Tia Nolan OPERATING COST CLERK LAB BLOOD ORDERABLES F inal Result Performing Organization Address City/[facility]/ZIP Co de Phone Number [facility] Department [place] [address] * aPTT (10/24/2023 7:06 PM CHEF MANAGER) aPTT 35 28 - 38 sec [facility] Comment: Interpretive Data Heparin therapeutic range: 66.0 - 100.0 seconds. Range based on correlation with therapeutic heparin activity range of 0.3 - 0.7 Units/mL. Current interpretive data was last revised on 2023. Blood 10/24/2023 7:06 PM CHEF MANAGER 10/24/2023 7:13 PM CHEF MANAGER Oneyda Foley LAB BLOOD ORDERABLES Final Res ult Performing Organization Address [facility] de Phone Number [facility] [place] [employer] [place] [address] * (ABNORMAL) Protime-INR (10/24/2023 7:06 PM CHEF MANAGER) Pathologist [facility] PT 13.8(H) 10.3 - 13.7 sec [facility] INR 1.21(H) 0.90 - 1.20 [facility] Comment: Interpretive data Oral anticoagulant therapeutic ranges: Venous thromboembolism prophylaxis or treatment: 2.0-3.0 CARDIOLOGY Standard range: 2.0-3.0 High-intensity range: 2.5-3.5 Refer to indication-specific guidelines for appropriate target ranges for prosthetic heart valve replacement. Current interpretive data was last revised on 2019. Blood 10/24/2023 7:06 PM CHEF MANAGER 10/24/2023 7:13 PM CHEF MANAGER Oneyda Foley NP LAB BLOOD ORDERABLES Final Res ult Performing Organization Address City/[facility] Co de Phone Number [facility] [place] [employer] [place] [address] * POCT glucose (10/24/2023 2:58 PM CHEF MANAGER) Glucose, POC 122 70 - 199 mg/dL [facility] Blood 10/24/2023 2:58 PM CHEF MANAGER 10/24/2023 2:58 PM CHEF MANAGER us Hayder Vu Jr., MD LAB POCT ORDERABLES - DEVICE Final Result Performing Organization Address [facility] [place] [address] * aPTT (10/24/2023 12:18 PM CHEF MANAGER) aPTT 35 28 - 38 sec [facility] Comment: Interpretive Data Heparin therapeutic range: 66.0 - 100.0 seconds. Range based on correlation with therapeutic heparin activity range of 0.3 - 0.7 Units/mL. Current interpretive data was last revised on 2023. Blood 10/24/2023 12:1 8 PM CHEF MANAGER 10/24/2023 12:30 PM CHEF MANAGER Narrative [facility] - 10/24/2023 12:55 PM CHEF MANAGER Draw STAT PTT 6 hrs after initiation of heparin infusion, draw STAT PTT 6 hours after each dose change, and every 6 hours until 2 consecutive PTTs are within therapeutic range. Once two consecutive PTT's are therapeutic (66-100 seconds), then draw PTT every AM until heparin is discontinued. us Hayder Vu Jr., MD LAB BLOOD ORDERABLE S Final Result Performing Organization Address [facility] de Phone Number [facility] [place] [address] * TRANSTHORACIC ECHO (TTE) COMPLETE W DOPPLER/CF W CONTRAST (10/24/2023 11:43 AM CHEF MANAGER) LV EF 70 % CARDIOREPORT Anatomical Region Laterality Modality Ultrasound 10/24/2023 7:00 AM CHEF MANAGER Narrative 10/24/2023 12:10 PM CHEF MANAGER Patient name: Hira Evans Date of test: 10/24/2023 Type of test: TTE w/Doppler Hospital #: 0 Date of : 1950 (M) [employer] Controller: Krystal Wasserman JENNIFER Referring Physician: HAYDER VU MD Contrast Agent: 1.1 ml Optison Administered, (1.9 ml wasted). Contrast Administered by: icu nurse Supervised/Interpreted by: Woody White MD Diagnosis: Location: [facility] Reason for test: Post arrest, bilateral [...] 2=Hypo 3=Akinetic 4=Dyskin./Aneurysm 0=Not visualized) Parasternal Long [place]:MAS=1 BAS=1 MIL=1 [place]=1 Parasternal Short [place]:MAS=1 MIS=1 [place]=1 MIL=1 MAL=1 MA=1 Apical [...] MD By signing this report, the attending sewing room supervisor certifies that he or she has personally supervised and interpreted the echocardiogram and has reviewed and or edited and agrees with the written comments contained within the report. Procedure Note Woody Hidalgo MD - 10/24/2023 Patient name: Hira Evans Date of test: 10/24/2023 Type of test: TTE w/Doppler [facility] #: 0 Date of : 1950 (M[place] Controller: Krystal Wasserman [facility] Referring Physician: HAYDER VU MD Contrast Agent: 1.1 ml Optison Administered, (1.9 ml wasted). Contrast Administered by: icu nurse Supervised/Interpreted by: Woody White MD Diagnosis: Location: [facility] Reason for test: Post arrest, bilateral [...] 2=Hypo 3=Akinetic 4=Dyskin./Aneurysm 0=Not visualized) Parasternal Long [place]:MAS=1 BAS=1 MIL=1 H[place]=1 Parasternal Short [place]:MAS=1 MIS=1 [place]=1 MIL=1 MAL=1 [place]=1 Apical [...] MD By signing this report, the attending sewing room supervisor certifies that he or she has personally supervised and interpreted the echocardiogram and has reviewed and or edited and agrees with the written comments contained within the report. Hayder Vu Jr., MD CV ECHO PROCEDURES Final Result * POCT glucose (10/24/2023 11:04 AM CHEF MANAGER) [facility] Signature Glucose, POC 121 70 - 199 mg/dL [facility] Blood 10/24/2023 11:0 4 AM CHEF MANAGER 10/24/2023 11:04 AM CHEF MANAGER Hayder Vu Jr., MD LAB POCT ORDERABLES - DEVICE Final Result [facility] [place] [address] * (ABNORMAL) Troponin I high-sensitivity 6-hour (10/24/2023 9:39 AM CHEF MANAGER) Trop I hs 133(H) <=35 ng/L [facility] Comment: Interpretive Data For further hscTnI resources including the diagnostic algorithm and an aid in interpretation, copy and paste this link: [email or web address]/show/hsTrop-1 Current Interpretive Data last revised 2020. Previous critical value noted within 48 hours ago. Trop I hs pct delta -35(C) % [facility] Trop I hs interp Significa nt(C) [facility] Blood 10/24/2023 9:39 AM CHEF MANAGER 10/24/2023 9:54 AM CHEF MANAGER us Hayder Vu Jr., MD LAB BLOOD ORDERABLE S Edited Result - Final Performing Organization Address [facility]/ZIP Co de Phone Number [facility] Department of [employer] [place], [place] [id number] * (ABNORMAL) Troponin I high-sensitivity (10/24/2023 8:32 AM CHEF MANAGER) Pathologist [facility] Trop I hs 153(H) <=35 ng/L [facility] Comment: Interpretive Data For further hscTnI resources including the diagnostic algorithm and an aid in interpretation, copy and paste this link: [email or web address]/show/hsTrop-[email or web address] Current Interpretive Data last revised 2020. Blood 10/24/2023 8:32 AM CHEF MANAGER 10/24/2023 8:59 AM CHEF MANAGER us Veronica MESA LAB BLOOD ORDERABLES Fi nal Result [facility] Department [place] [employer] [place] [address] * POCT glucose (10/24/2023 7:31 AM CHEF MANAGER) Pathologist [facility] Glucose, POC 111 70 - 199 mg/dL [facility] Blood 10/24/2023 7:31 AM CHEF MANAGER 10/24/2023 7:31 AM CHEF MANAGER us Hayder Vu Jr., MD LAB POCT ORDERABLES - DEVICE Final Result [facility] [place] [address] * Critical Care (10/24/2023 6:48 AM CHEF MANAGER) Narrative Avel Bourne MD - 10/24/2023 6:48 AM CHEF MANAGER Rob Langley NP ? 10/24/2023 ??5:31 PM [...] plan with the ICU team and other medical/cloud consultant staff, making frequent assessments and decisions [...] the following conditions: ?? us Rob Langley OPERATING COST CLERK IN CLINIC/BEDS ADELE ORDERABLES Final Result * aPTT (10/24/2023 5:38 AM CHEF MANAGER) aPTT 30 28 - 38 sec [facility] Comment: Interpretive Data Heparin therapeutic range: 66.0 - 100.0 seconds. Range based on correlation with therapeutic heparin activity range of 0.3 - 0.7 Units/mL. Current interpretive data was last revised on 2023. Blood 10/24/2023 5:38 AM CHEF MANAGER 10/24/2023 5:43 AM CHEF MANAGER Narrative [facility] - 10/24/2023 6:06 AM CHEF MANAGER Draw STAT PTT 6 hrs after initiation of heparin infusion, draw STAT PTT 6 hours after each dose change, and every 6 hours until 2 consecutive PTTs are within therapeutic range. Once two consecutive PTT's are therapeutic (66-100 seconds), then draw PTT every AM until heparin is discontinued. Hayder Vu Jr., MD LAB BLOOD ORDERABLE S Final Result Performing Organization Address [facility] Co de Phone Number [facility] [place] [employer] [place] [address] * (ABNORMAL) Troponin I high-sensitivity 2-hour (10/24/2023 5:38 AM CHEF MANAGER) Trop I hs 195(H) <=35 ng/L [facility] Comment: Previous critical value noted within 48 hours ago. Interpretive Data For further hscTnI resources including the diagnostic algorithm and an aid in interpretation, copy and paste this link: https://bjhlab.testcatalog.org/show/hsTrop-1 Current Interpretive Data last revised 2020. Trop I hs pct delta -5 % [facility] Comment:Previous critical va lue noted within 48 hours ago. Trop I hs interp Equivocal [facility] Comment:Previous critical va lue noted within 48 hours ago. Blood 10/24/2023 5:38 AM CHEF MANAGER 10/24/2023 5:43 AM CHEF MANAGER Hayder Vu Jr., MD LAB BLOOD ORDERABLE S Final Result Performing Organization Address [facility] Co de Phone Number [facility] [place] [employer] [place] [address] * EEG (10/24/2023 5:02 AM CHEF MANAGER) Anatomical Region Laterality Modality EEG Narrative 10/24/2023 4:40 PM CHEF MANAGER Routine EEG Report Patient Name: Hira Evans [facility] Medical Record Number (MRN): [id number] [facility] Record: [id number] Date of (): 1950 EEG Date: 10/24/2023 [...] 32 channel EEG recording acquired on a [employer] EEG-1200 acquisition system. Scalp electrodes were placed [...] * ECG 12 lead (10/24/2023 3:44 AM CHEF MANAGER) Ventricular Rate EKG/Min 82 BPM [facility] Atrial Rate 82 BPM [facility] MA-Interval (MSEC) 166 ms [facility] QRS-Interval (MSEC) 78 ms [facility] QT-Interval (MSEC) 384 ms [facility] QTc 448 ms [facility] P [place] 34 degrees [facility] R [place] -30 degrees [facility] T [place] -13 degrees [facility] Diagnosis Normal sinus rhythm Left axis deviation Nonspecific ST abnormality Abnormal ECG No previous ECGs available Confirmed by ELLA LASSITER M.D ([id number]) on 10/25/2023 1:12:26 PM [facility] 10/24/2023 3:44 AM CHEF MANAGER 10/25/2023 1:12 PM CHEF MANAGER us Tia Nolan NP ECG ORDERABLES Final Result [facility] * Critical result callback Cardio chemistry (10/24/2023 3:38 AM CHEF MANAGER) Date Notified [id number] [facility] Time Notified 451 [facility] Test name Trop I hs [facility] Called/Read Back Edwige Porras [facility] Credentials RN [facility] Called By JO [facility] Blood 10/24/2023 3:38 AM CHEF MANAGER 10/24/2023 4:02 AM CHEF MANAGER us Hayder Vu Jr., MD LAB BLOOD ORDERABLE S Final Result [facility] Department [place] [address] * (ABNORMAL) Troponin I high-sensitivity series (baseline, 2hr, 4hr, 6hr) (10/24/2023 3:38 AM CHEF MANAGER) Trop I hs 206(C) <=35 ng/L [facility] Comment: reviewed Interpretive Data For further hscTnI resources including the diagnostic algorithm and an aid in interpretation, copy and paste this link: https://bjhlab.testcatalog.org/show/hsTrop-1 Current Interpretive Data last revised 2020. Blood 10/24/2023 3:38 AM CHEF MANAGER 10/24/2023 4:02 AM CHEF MANAGER us Hayder Vu Jr., MD LAB BLOOD ORDERABLE S Final Result Performing Organization Address [facility] [place] [place] [address] * Lactate (10/24/2023 3:38 AM CHEF MANAGER) Pathologist [facility] Lactate 0.9 0.7 - 2.0 mmol/L [facility] Blood 10/24/2023 3:38 AM CHEF MANAGER 10/24/2023 4:02 AM CHEF MANAGER Hayder Vu Jr., MD LAB BLOOD ORDERABLE S Final Result Performing Organization Address [facility] de Phone Number [facility] [place] [employer] [place] [address] * POCT glucose (10/24/2023 3:25 AM CHEF MANAGER) Glucose, POC 180 70 - 199 mg/dL [facility] Blood 10/24/2023 3:25 AM CHEF MANAGER 10/24/2023 3:25 AM CHEF MANAGER us Hayder Vu Jr., MD LAB POCT ORDERABLES - DEVICE Final Result Performing Organization Address [facility] Co de Phone Number [facility] [place] [address] * (ABNORMAL) POCT glucose (10/24/2023 12:20 AM CHEF MANAGER) Glucose, POC 252(H) 70 - 199 mg/dL [facility] Blood 10/24/2023 12:2 0 AM CHEF MANAGER 10/24/2023 12:20 AM CHEF MANAGER Hayder Vu Jr., MD LAB POCT ORDERABLES - DEVICE Final Result Performing Organization Address [facility] de Phone Number [facility] [place] [address] * (ABNORMAL) aPTT (10/24/2023 12:20 AM CHEF MANAGER) [facility] aPTT 27(L) 28 - 38 sec [facility] Comment: Interpretive Data Heparin therapeutic range: 66.0 - 100.0 seconds. Range based on correlation with therapeutic heparin activity range of 0.3 - 0.7 Units/mL. Current interpretive data was last revised on 2023. Blood 10/24/2023 12:2 0 AM CHEF MANAGER 10/24/2023 12:31 AM CHEF MANAGER Narrative [facility] - 10/24/2023 12:58 AM CHEF MANAGER Baseline prior to heparin initiation Hayder Vu Jr., MD LAB BLOOD ORDERABLE S Final Result Performing Organization Address [facility] de Phone Number [facility] [place] [address] * (ABNORMAL) CBC without differential (10/24/2023 12:20 AM CHEF MANAGER) [facility] WBC 22.9(H) 3.8 - 9.9 K/cumm [facility] Hgb 9.0(L) 13.0 - 17.5 g/dL [facility] Hct 25.4(L) 38.9 - 50.3 % [facility] Plt 366 150 - 400 K/cumm [facility] MPV 10.8 9.1 - 12.3 fL [facility] RBC 2.76(L) 4.30 - 5.80 M/cumm [facility] MCV 92.0 81.3 - 96.4 fL [facility] MCH 32.6 27.1 - 33.3 pg [facility] MCHC 35.4 32.3 - 35.7 g/dL [facility] RDW CV 12.5 11.1 - 14.9 % [facility] RDW SD 41.8 35.7 - 48.1 fL [facility] NRBC abs 0.00 0.00 - 0.01 K/cumm [facility] Blood 10/24/2023 12:2 0 AM CHEF MANAGER 10/24/2023 12:45 AM CHEF MANAGER Narrative [facility] - 10/24/2023 12:55 AM CHEF MANAGER Baseline prior to heparin initiation Hayder Vu Jr., MD LAB BLOOD ORDERABLE S Final Result Performing Organization Address [facility] de Phone Number [facility] [place] [employer] [place] [address] * Protime-INR (10/24/2023 12:20 AM CHEF MANAGER) PT 13.7 10.3 - 13.7 sec [facility] INR 1.20 0.90 - 1.20 [facility] Comment: Interpretive data Oral anticoagulant therapeutic ranges: Venous thromboembolism prophylaxis or treatment: 2.0-3.0 CARDIOLOGY Standard range: 2.0-3.0 High-intensity range: 2.5-3.5 Refer to indication-specific guidelines for appropriate target ranges for prosthetic heart valve replacement. Current interpretive data was last revised on 2019. Blood 10/24/2023 12:2 0 AM CHEF MANAGER 10/24/2023 12:31 AM CHEF MANAGER Narrative [facility] - 10/24/2023 12:58 AM CHEF MANAGER Baseline prior to heparin initiation Hayder Vu Jr., MD LAB BLOOD ORDERABLE S Final Result Performing Organization Address [facility] Co de Phone Number [facility] [place] [employer] [place] [address] * HIV 1/2 Antibody plus p24 Antigen Blood (10/24/2023 12:20 AM CHEF MANAGER) HIV 1/2 ab + p24 ag Nonreactive Nonreactive [facility] Comment:Nonreactive for HIV- 1 antigen and HIV-1/HIV-2 antibodies. No laboratory evidence of HIV infection. If acute HIV infection is suspected, consider testing for HIV-1 RNA. Current interpretive data was last revised on 22. Blood 10/24/2023 12:2 0 AM CHEF MANAGER 10/24/2023 12:45 AM CHEF MANAGER us Hayder Vu Jr., MD LAB MICROBIOLOGY - GENERAL ORDERABLES Final Result [facility] [place] [address] * CT Chest PE (CTA) Abdomen Pelvis W Contrast (10/23/2023 11:48 PM CHEF MANAGER) Anatomical Region Laterality Modality Body N/A Computed Tomogra phy 10/24/2023 12:1 1 AM CHEF MANAGER Impressions 10/24/2023 7:15 AM CHEF MANAGER 1. ??Acute pulmonary emboli involving the distal [...] Clemente Mathew M.D. Narrative 10/24/2023 7:15 AM CHEF MANAGER EXAMINATION: CT CHEST PE (CTA) ABDOMEN PELVIS [...] CT Head WO Contrast (10/23/2023 11:48 PM CHEF MANAGER) Anatomical Region Laterality Modality Head and Neck N/A Computed Tomogra phy 10/24/2023 12:3 6 AM CHEF MANAGER Impressions 10/24/2023 11:45 AM CHEF MANAGER Subtle white matter hypoattenuation with loss of [...] Zac Mcgarry M.D. Narrative 10/24/2023 11:45 AM CHEF MANAGER EXAMINATION: CT head without contrast HISTORY: 73-year-old [...] Result * Critical Care (10/23/2023 11:47 PM CHEF MANAGER) Narrative Wilder Arceo Jr., MD - 10/23/2023 11:47 PM CHEF MANAGER Wilder Arceo Jr., MD ? 10/24/2023 ??3:28 [...] plan with the ICU team and other medical/cloud consultant staff, making frequent assessments and decisions [...] * (ABNORMAL) Manual Differential (10/23/2023 11:03 PM CHEF MANAGER) Differential Auto [facility] Neutrophil abs 23.5(H) 1.5 - 6.5 K/cumm [facility] Imm gran abs 0.9(H) 0.0 - 0.1 K/cumm [facility] Lymphocyte abs 1.1 0.8 - 3.3 K/cumm [facility] Monocyte abs 1.1(H) 0.2 - 0.8 K/cumm [facility] Eosinophil abs 0.1 0.0 - 0.5 K/cumm [facility] Basophil abs 0.1 0.0 - 0.1 K/cumm [facility] Neutrophil pct 88.2 % [facility] Comment: Interpretive Data Percent cell count reference ranges are not reported, since discordance with absolute values may lead to misinterpretation of CBC data. Current Interpretive Data was last revised on 2018. Imm gran pct 3.4 % [facility] Comment: Interpretive Data Percent cell count reference ranges are not reported, since discordance with absolute values may lead to misinterpretation of CBC data. Current Interpretive Data was last revised on 2018. Lymphocyte pct 3.9 % [facility] Comment: Interpretive Data Percent cell count reference ranges are not reported, since discordance with absolute values may lead to misinterpretation of CBC data. Current Interpretive Data was last revised on 2018. Monocyte pct 3.9 % [facility] Comment: Interpretive Data Percent cell count reference ranges are not reported, since discordance with absolute values may lead to misinterpretation of CBC data. Current Interpretive Data was last revised on 2018. Eosinophil pct 0.2 % [facility] Comment: Interpretive Data Percent cell count reference ranges are not reported, since discordance with absolute values may lead to misinterpretation of CBC data. Current Interpretive Data was last revised on 2018. Basophil pct 0.4 % [facility] Comment: Interpretive Data Percent cell count reference ranges are not reported, since discordance with absolute values may lead to misinterpretation of CBC data. Current Interpretive Data was last revised on 2018. RBC morphology Present(A) [facility] Polychromasia 3-7/HPF(A) [facility] Poikilocytosis Slight(A) [facility] Platelet estimate Adequate [facility] Blood 10/23/2023 11:0 3 PM CHEF MANAGER 10/23/2023 11:43 PM CHEF MANAGER us Jimenez Sy Henao MD LAB BLOOD ORDERABLES Final Result [facility] [place] [address] * (ABNORMAL) Differential, auto (10/23/2023 11:03 PM CHEF MANAGER) Neutrophil abs 23.5(H) 1.5 - 6.5 K/cumm [facility] Imm gran abs 0.9(H) 0.0 - 0.1 K/cumm [facility] Lymphocyte abs 1.1 0.8 - 3.3 K/cumm [facility] Monocyte abs 1.1(H) 0.2 - 0.8 K/cumm [facility] Eosinophil abs 0.1 0.0 - 0.5 K/cumm [facility] Basophil abs 0.1 0.0 - 0.1 K/cumm [facility] Neutrophil pct 88.2 % [facility] Comment: Interpretive Data Percent cell count reference ranges are not reported, since discordance with absolute values may lead to misinterpretation of CBC data. Current Interpretive Data was last revised on 2018. Imm gran pct 3.4 % [facility] Comment: Interpretive Data Percent cell count reference ranges are not reported, since discordance with absolute values may lead to misinterpretation of CBC data. Current Interpretive Data was last revised on 2018. Lymphocyte pct 3.9 % [facility] Comment: Interpretive Data Percent cell count reference ranges are not reported, since discordance with absolute values may lead to misinterpretation of CBC data. Current Interpretive Data was last revised on 2018. Monocyte pct 3.9 % [facility] Comment: Interpretive Data Percent cell count reference ranges are not reported, since discordance with absolute values may lead to misinterpretation of CBC data. Current Interpretive Data was last revised on 2018. Eosinophil pct 0.2 % [facility] Comment: Interpretive Data Percent cell count reference ranges are not reported, since discordance with absolute values may lead to misinterpretation of CBC data. Current Interpretive Data was last revised on 2018. Basophil pct 0.4 % [facility] Comment: Interpretive Data Percent cell count reference ranges are not reported, since discordance with absolute values may lead to misinterpretation of CBC data. Current Interpretive Data was last revised on 2018. Blood 10/23/2023 11:0 3 PM CHEF MANAGER 10/23/2023 11:11 PM CHEF MANAGER Jimenez Henao MD LAB BLOOD ORDERABLES Final Result Performing Organization Address [facility] de Phone Number [facility] Department [place] [address] * (ABNORMAL) Blood gas, arterial (10/23/2023 11:03 PM CHEF MANAGER) pH, Art 7.38 7.35 - 7.45 [facility] PCO2, Arterial 37 35 - 45 mmHg [facility] PO2, Arterial 133(H) 83 - 108 mmHg [facility] HCO3 Art (Calculated) 22 20 - 30 mmol/L [facility] BE, art -3 mmol/L [facility] Comment: Interpretive Data No Reference Range Established Current Interpretive Data was last revised on 2017 O2 Sat Art (Measured) 99(H) 90 - 95 % [facility] Blood 10/23/2023 11:0 3 PM CHEF MANAGER 10/23/2023 11:10 PM CHEF MANAGER Hayder Vu Jr., MD LAB BLOOD ORDERABLE S Final Result Performing Organization Address [facility] de Phone Number [facility] Department [place] [address] * (ABNORMAL) Calcium, ionized (10/23/2023 11:03 PM CHEF MANAGER) Pathologist [facility] Calcium, Ionized 4.41(L) 4.50 - 5.10 mg/dL [facility] Blood 10/23/2023 11:0 3 PM CHEF MANAGER 10/23/2023 11:13 PM CHEF MANAGER Hayder Vu Jr., MD LAB BLOOD ORDERABLE S Final Result [facility] Department [place] [address] * (ABNORMAL) CBC with auto differential (10/23/2023 11:03 PM CHEF MANAGER) WBC 26.7(H) 3.8 - 9.9 K/cumm [facility] Hgb 9.0(L) 13.0 - 17.5 g/dL [facility] Hct 27.3(L) 38.9 - 50.3 % [facility] Plt 418(H) 150 - 400 K/cumm [facility] MPV 11.3 9.1 - 12.3 fL [facility] RBC 2.88(L) 4.30 - 5.80 M/cumm [facility] MCV 94.8 81.3 - 96.4 fL [facility] Comment:MCV delta due to manpreet gical procedure. Spoke to Edwige Porras RN. MCH 31.3 27.1 - 33.3 pg [facility] MCHC 33.0 32.3 - 35.7 g/dL [facility] RDW CV 12.4 11.1 - 14.9 % [facility] RDW SD 43.5 35.7 - 48.1 fL [facility] NRBC abs 0.00 0.00 - 0.01 K/cumm [facility] Blood 10/23/2023 11:0 3 PM CHEF MANAGER 10/23/2023 11:11 PM CHEF MANAGER Tia Nolan NP LAB BLOOD ORDERABLES E dited Result - Final [facility] Department [place] [address] * (ABNORMAL) Lipid panel (10/23/2023 11:02 PM CHEF MANAGER) Pathologist [facility] Cholesterol 162 30 - 199 mg/dL [facility] Comment: Interpretive Data Ages < or [...] on 2018. LDL, calculated 101 <=129 mg/dL [facility] Comment: Interpretive Data Ages < or [...] revised on 2018. Non-HDL Cholesterol 128 mg/dL [facility] Comment: Interpretive Data Ages < or [...] revised on 2018. Chol/HDL ratio 5 [facility] Blood 10/23/2023 11:0 2 PM CHEF MANAGER 10/23/2023 11:14 PM CHEF MANAGER Narrative [facility] - 10/24/2023 11:06 AM CHEF MANAGER This lipid panel was automatically ordered due to a significant change in Troponin. The dietary status of the patient at the collection time should be correlated with the lipid results. us Hayder Vu Jr., MD LAB BLOOD ORDERABLE S Final Result [facility] [place] [address] * eGFR (10/23/2023 11:02 PM CHEF MANAGER) eGFR 74 >=60 mL/min/1. 73 m2 [facility] [...] reviewed 2021. Blood 10/23/2023 11:0 2 PM CHEF MANAGER 10/23/2023 11:14 PM CHEF MANAGER Hayder Vu Jr., MD LAB BLOOD ORDERABLE S Final Result Performing Organization Address [facility] de Phone Number [facility] [place] [employer] [place] [address] * (ABNORMAL) Phosphorus (10/23/2023 11:02 PM CHEF MANAGER) [facility] Phosphorus, pl 4.6(H) 2.3 - 4.5 mg/dL [facility] Blood 10/23/2023 11:0 2 PM CHEF MANAGER 10/23/2023 11:13 PM CHEF MANAGER Hayder Vu Jr., MD LAB BLOOD ORDERABLE S Final Result Performing Organization Address [facility] [place] [address] * Magnesium (10/23/2023 11:02 PM CHEF MANAGER) [facility] Magnesium 2.0 1.4 - 2.5 mg/dL [facility] Blood 10/23/2023 11:0 2 PM CHEF MANAGER 10/23/2023 11:13 PM CHEF MANAGER Hayder Vu Jr., MD LAB BLOOD ORDERABLE S Final Result Performing Organization Address [facility] [place] [address] * (ABNORMAL) Comprehensive metabolic panel (10/23/2023 11:02 PM CHEF MANAGER) [facility] Sodium 137 135 - 145 mmol/L [facility] Potassium, pl 4.1 3.3 - 4.9 mmol/L [facility] Chloride 102 97 - 110 mmol/L [facility] CO2 23 22 - 32 mmol/L [facility] Anion gap 12 2 - 15 mmol/L [facility] BUN 12 6 - 25 mg/dL [facility] Creatinine 1.07 0.80 - 1.30 mg/dL [facility] Glucose 245(H) 70 - 199 mg/dL [facility] Comment: Interpretive Data Fasting glucose >/= [...] Calcium 8.3(L) 8.5 - 10.3 mg/dL [facility] Bilirubin, total 0.6 0.1 - 1.2 mg/dL [facility] Protein, pl 5.9(L) 6.5 - 8.5 g/dL [facility] Albumin 2.6(L) 3.5 - 5.0 g/dL [facility] Alk phos 91 40 - 130 Units/L [facility] ALT 88(H) 7 - 55 Units/L [facility] AST 83(H) 10 - 50 Units/L [facility] Blood 10/23/2023 11:0 2 PM CHEF MANAGER 10/23/2023 11:13 PM CHEF MANAGER us Hayder Vu Jr., MD LAB BLOOD ORDERABLE S Final Result [facility] [place] [address] * (ABNORMAL) aPTT (10/23/2023 11:02 PM CHEF MANAGER) aPTT 25(L) 28 - 38 sec [facility] Comment: Interpretive Data Heparin therapeutic range: 66.0 - 100.0 seconds. Range based on correlation with therapeutic heparin activity range of 0.3 - 0.7 Units/mL. Current interpretive data was last revised on 2023. Blood 10/23/2023 11:0 2 PM CHEF MANAGER 10/23/2023 11:58 PM CHEF MANAGER Oneyda Foley NP LAB BLOOD ORDERABLES Final Res ult Performing Organization Address [facility] [place] [address] * (ABNORMAL) Protime-INR (10/23/2023 11:02 PM CHEF MANAGER) PT 13.9(H) 10.3 - 13.7 sec [facility] INR 1.22(H) 0.90 - 1.20 [facility] Comment: Interpretive data Oral anticoagulant therapeutic ranges: Venous thromboembolism prophylaxis or treatment: 2.0-3.0 CARDIOLOGY Standard range: 2.0-3.0 High-intensity range: 2.5-3.5 Refer to indication-specific guidelines for appropriate target ranges for prosthetic heart valve replacement. Current interpretive data was last revised on 2019. Blood 10/23/2023 11:0 2 PM CHEF MANAGER 10/23/2023 11:58 PM CHEF MANAGER Oneyda Foley NP LAB BLOOD ORDERABLES Final Res ult Performing Organization Address [facility] [place] [address] * (ABNORMAL) POC Blood Gas and Chemistries, Arterial - (10/23/2023 10:39 PM CHEF MANAGER) pH, Art POC 7.37 7.35 - 7.45 [facility] pCO2, Art POC 38 35 - 45 mmHg [facility] pO2, Art POC 137(H) 83 - 108 mmHg [facility] Na, POC 137 135 - 145 mmol/L [facility] K POC 4.0 3.3 - 4.9 mmol/L [facility] Comment: Interpretive Data This method is not able to assess for hemolysis, which may falsely increase potassium concentrations. If further testing is needed to evaluate this result, consider in-laboratory plasma potassium. Current Interpretive Data was last revised on 2022. Cl, POC 107 97 - 110 mmol/L [facility] Ionized Ca, POC 4.58 4.50 - 5.10 mg/dL [facility] Glucose, POC 247(H) 70 - 199 mg/dL [facility] Lactate, POC 4.6(C) 0.7 - 2.2 mmol/L [facility] SO2 (crys) arterial 100(H) 90 - 95 % [facility] Base excess, POC -3.0 mmol/L [facility] HCO3, Art POC 22 20 - 30 mmol/L [facility] Hct, POC 28.0(L) 41.4 - 51.6 % [facility] O2 Sat, Art POC (Calc) 99 % [facility] Total Hb, POC 9.2(L) 13.8 - 17.2 g/dL [facility] Blood 10/23/2023 10:3 9 PM CHEF MANAGER 10/23/2023 10:39 PM CHEF MANAGER us Hayder Vu Jr., MD LAB POCT ORDERABLES - DEVICE Final Result [facility] Department [place] [address] * (ABNORMAL) POC Blood Gas and Chemistries, Arterial - (10/23/2023 10:07 PM CHEF MANAGER) pH, Art POC 7.12(C) 7.35 - 7.45 [facility] pCO2, Art POC 54(H) 35 - 45 mmHg [facility] pO2, Art POC 287(H) 83 - 108 mmHg [facility] Na, POC 137 135 - 145 mmol/L [facility] K POC 4.0 3.3 - 4.9 mmol/L [facility] Comment: Interpretive Data This method is not able to assess for hemolysis, which may falsely increase potassium concentrations. If further testing is needed to evaluate this result, consider in-laboratory plasma potassium. Current Interpretive Data was last revised on 2022. Cl, POC 104 97 - 110 mmol/L [facility] Ionized Ca, POC 4.67 4.50 - 5.10 mg/dL [facility] Glucose, POC 235(H) 70 - 199 mg/dL [facility] Lactate, POC 7.2(C) 0.7 - 2.2 mmol/L [facility] SO2 (crys) arterial 100(H) 90 - 95 % [facility] Base excess, POC -11.4 mmol/L [facility] HCO3, Art POC 16(L) 20 - 30 mmol/L [facility] Hct, POC 29.0(L) 41.4 - 51.6 % [facility] O2 Sat, Art POC (Calc) 100 % [facility] Total Hb, POC 9.5(L) 13.8 - 17.2 g/dL [facility] Blood 10/23/2023 10:0 7 PM CHEF MANAGER 10/23/2023 10:07 PM CHEF MANAGER Pipe Moseley MD LAB POCT ORDERABLES - DEV ICE Final Result [facility] [place] [address] * eGFR (10/23/2023 9:52 PM CHEF MANAGER) eGFR 75 >=60 mL/min/1. 73 m2 [facility] Comment: Interpretive Data Reference Interval Normal [...] last reviewed 2021. Blood 10/23/2023 9:52 PM CHEF MANAGER 10/23/2023 10:01 PM CHEF MANAGER us Myke Smith MD PhD LAB BLOOD ORDERA BLES Final Result [facility] Department [place] [address] * (ABNORMAL) Basic metabolic panel (10/23/2023 9:52 PM CHEF MANAGER) [facility] Sodium 143 135 - 145 mmol/L [facility] Potassium, pl 3.8 3.3 - 4.9 mmol/L [facility] Chloride 102 97 - 110 mmol/L [facility] CO2 20(L) 22 - 32 mmol/L [facility] Anion gap 21(H) 2 - 15 mmol/L [facility] BUN 12 6 - 25 mg/dL [facility] Creatinine 1.06 0.80 - 1.30 mg/dL [facility] Glucose 208(H) 70 - 199 mg/dL [facility] Comment: Interpretive Data Fasting glucose >/= [...] 2022. Calcium 8.9 8.5 - 10.3 mg/dL [facility] Blood 10/23/2023 9:52 PM CHEF MANAGER 10/23/2023 10:01 PM CHEF MANAGER Myke Smith MD PhD LAB BLOOD ORDERA BLES Final Result Performing Organization Address City/[facility]/ZIP Co de Phone Number [facility] Department [place] [address] * (ABNORMAL) CBC without differential (10/23/2023 9:52 PM CHEF MANAGER) WBC 23.8(H) 3.8 - 9.9 K/cumm [facility] Hgb 9.8(L) 13.0 - 17.5 g/dL [facility] Hct 32.0(L) 38.9 - 50.3 % [facility] Plt 458(H) 150 - 400 K/cumm [facility] MPV 11.1 9.1 - 12.3 fL [facility] RBC 3.14(L) 4.30 - 5.80 M/cumm [facility] MCV 101.9(H) 81.3 - 96.4 fL [facility] Comment:MCV delta due to manpreet gical procedure. MCH 31.2 27.1 - 33.3 pg [facility] MCHC 30.6(L) 32.3 - 35.7 g/dL [facility] RDW CV 12.5 11.1 - 14.9 % [facility] RDW SD 46.9 35.7 - 48.1 fL [facility] NRBC abs 0.03(H) 0.00 - 0.01 K/cumm [facility] Blood 10/23/2023 9:52 PM CHEF MANAGER 10/23/2023 10:02 PM CHEF MANAGER Myke Smith MD PhD LAB BLOOD ORDERA BLES Final Result Performing Organization Address City/[facility]/ZIP Co de Phone Number [facility] Department [place] [address] * (ABNORMAL) POC Blood Gas and Chemistries, Venous - (10/23/2023 9:50 PM CHEF MANAGER) pH, Arturo POC 6.99(C) 7.32 - 7.43 [facility] pCO2, arturo POC 84(C) 40 - 50 mmHg [facility] pO2, arturo POC 42 mmHg [facility] Na, POC 139 135 - 145 mmol/[facility] K POC 5.4(H) 3.3 - 4.9 mmol/L [facility] Comment: Interpretive Data This method is not able to assess for hemolysis, which may falsely increase potassium concentrations. If further testing is needed to evaluate this result, consider in-laboratory plasma potassium. Current Interpretive Data was last revised on 2022. Cl, POC 103 97 - 110 mmol/L [facility] Ionized Ca, POC 4.70 4.50 - 5.10 mg/dL [facility] Glucose, POC 172 70 - 199 mg/dL [facility] Lactate, POC 9.2(C) 0.7 - 2.2 mmol/L [facility] O2 Sat, Arturo POC (Crys) 48 % [facility] Base excess, POC -11.7 mmol/L [facility] Hct, POC 30.0(L) 41.4 - 51.6 % [facility] Total Hb, POC 10.0(L) 13.8 - 17.2 g/dL [facility] O2 Sat, Arturo POC (Calc) 48 % [facility] Blood 10/23/2023 9:50 PM CHEF MANAGER 10/23/2023 9:50 PM CHEF MANAGER us Pipe Moseley MD LAB POCT ORDERABLES - DEV ICE Final Result [facility] Department [place] [address] * [place] Fluoroscopy < 1 Hour (10/23/2023 8:45 PM CHEF MANAGER) Narrative [id number] - 10/23/2023 8:46 PM CHEF MANAGER The images from this study are not interpreted by Radiology. ??Please refer to the physician's procedure / OR operative note. us Hayder Vu Jr., MD IMG FLUOROSCOPY PRO CEDURES Final Result Performing Organization Address [facility] de Phone Number [email or web address] * eGFR (10/22/2023 9:39 PM CHEF MANAGER) eGFR 66 >=60 mL/min/1. [address] [facility] Comment: Interpretive Data Reference Interval Normal [...] last reviewed 2021. Blood 10/22/2023 9:39 PM CHEF MANAGER 10/22/2023 10:23 PM CHEF MANAGER us Jimenez Henao MD LAB BLOOD ORDERABLES Final Result Performing Organization Address [facility] Co de Phone Number [facility] [place] [address] * (ABNORMAL) Differential, auto (10/22/2023 9:39 PM CHEF MANAGER) Neutrophil abs 6.2 1.5 - 6.5 K/cumm [facility] Imm gran abs 0.1 0.0 - 0.1 K/cumm [facility] Lymphocyte abs 1.3 0.8 - 3.3 K/cumm [facility] Monocyte abs 1.1(H) 0.2 - 0.8 K/cumm [facility] Eosinophil abs 0.1 0.0 - 0.5 K/cumm [facility] Basophil abs 0.1 0.0 - 0.1 K/cumm [facility] Neutrophil pct 70.2 % [facility] Comment: Interpretive Data Percent cell count reference ranges are not reported, since discordance with absolute values may lead to misinterpretation of CBC data. Current Interpretive Data was last revised on 2018. Imm gran pct 1.0 % [facility] Comment: Interpretive Data Percent cell count reference ranges are not reported, since discordance with absolute values may lead to misinterpretation of CBC data. Current Interpretive Data was last revised on 2018. Lymphocyte pct 14.4 % [facility] Comment: Interpretive Data Percent cell count reference ranges are not reported, since discordance with absolute values may lead to misinterpretation of CBC data. Current Interpretive Data was last revised on 2018. Monocyte pct 12.4 % [facility] Comment: Interpretive Data Percent cell count reference ranges are not reported, since discordance with absolute values may lead to misinterpretation of CBC data. Current Interpretive Data was last revised on 2018. Eosinophil pct 1.4 % [facility] Comment: Interpretive Data Percent cell count reference ranges are not reported, since discordance with absolute values may lead to misinterpretation of CBC data. Current Interpretive Data was last revised on 2018. Basophil pct 0.6 % [facility] Comment: Interpretive Data Percent cell count reference ranges are not reported, since discordance with absolute values may lead to misinterpretation of CBC data. Current Interpretive Data was last revised on 2018. Blood 10/22/2023 9:39 PM CHEF MANAGER 10/22/2023 10:17 PM CHEF MANAGER Result Caity Henao MD LAB BLOOD ORDERABLES Final Result Performing Organization Address [facility] [place] [address] * Type and screen (10/22/2023 9:39 PM CHEF MANAGER) Jigna, indirect Negative ABO Rh O Positive [facility] Blood 10/22/2023 9:39 PM CHEF MANAGER 10/22/2023 10:24 PM CHEF MANAGER Narrative [facility] - 10/22/2023 11:35 PM CHEF MANAGER Has the patient had Daratumumab or Isatuximab in the past 6 months?->Unknown Result Caity Henao MD LAB BLOOD BANK TEST O RDERABLES Final Result Performing Organization Address [facility] [place] [address] * Protime-INR (10/22/2023 9:39 PM CHEF MANAGER) PT 12.6 10.3 - 13.7 sec [facility] INR 1.11 0.90 - 1.20 [facility] Comment: Interpretive data Oral anticoagulant therapeutic ranges: Venous thromboembolism prophylaxis or treatment: 2.0-3.0 CARDIOLOGY Standard range: 2.0-3.0 High-intensity range: 2.5-3.5 Refer to indication-specific guidelines for appropriate target ranges for prosthetic heart valve replacement. Current interpretive data was last revised on 2019. Blood 10/22/2023 9:39 PM CHEF MANAGER 10/22/2023 10:26 PM CHEF MANAGER Result Caity Henao MD LAB BLOOD ORDERABLES Final Result Performing Organization Address [facility]/State/ZIP Co de Phone Number [facility] Department [place] [address] * (ABNORMAL) CBC with auto differential (10/22/2023 9:39 PM CHEF MANAGER) [facility] WBC 8.8 3.8 - 9.9 K/cumm [facility] Hgb 10.5(L) 13.0 - 17.5 g/dL [facility] Hct 30.7(L) 38.9 - 50.3 % [facility] Plt 378 150 - 400 K/cumm [facility] MPV 10.6 9.1 - 12.3 fL [facility] RBC 3.29(L) 4.30 - 5.80 M/cumm [facility] MCV 93.3 81.3 - 96.4 fL [facility] MCH 31.9 27.1 - 33.3 pg [facility] MCHC 34.2 32.3 - 35.7 g/dL [facility] RDW CV 12.4 11.1 - 14.9 % [facility] RDW SD 43.1 35.7 - 48.1 fL [facility] NRBC abs 0.00 0.00 - 0.01 K/cumm [facility] Blood 10/22/2023 9:39 PM CHEF MANAGER 10/22/2023 10:17 PM CHEF MANAGER Tia Nolan OPERATING COST CLERK LAB BLOOD ORDERABLES F inal Result [facility] Department [place] [address] * (ABNORMAL) Basic metabolic panel (10/22/2023 9:39 PM CHEF MANAGER) [facility] Sodium 134(L) 135 - 145 mmol/L [facility] Potassium, pl 4.6 3.3 - 4.9 mmol/L [facility] Chloride 99 97 - 110 mmol/L [facility] CO2 30 22 - 32 mmol/L [facility] Anion gap 5 2 - 15 mmol/L [facility] BUN 12 6 - 25 mg/dL [facility] Creatinine 1.17 0.80 - 1.30 mg/dL [facility] Glucose 121 70 - 199 mg/dL [facility] Comment: Interpretive Data Fasting glucose >/= [...] 2022. Calcium 8.8 8.5 - 10.3 mg/dL [facility] Blood 10/22/2023 9:39 PM CHEF MANAGER 10/22/2023 10:23 PM CHEF MANAGER Tia Nolan OPERATING COST CLERK LAB BLOOD ORDERABLES F inal Result [facility] [place] [address] * XR Chest 1 View (10/22/2023 6:24 AM CHEF MANAGER) Anatomical Region Laterality Modality Body, Chest N/A Computed Radiogr aphy 10/22/2023 8:41 AM CHEF MANAGER Impressions 10/22/2023 12:03 PM CHEF MANAGER Comparison is made to CT chest abdomen [...] Maritza Miranda M.D. Narrative 10/22/2023 12:03 PM CHEF MANAGER EXAMINATION: 1 view chest radiograph Procedure Note [...] Resul t * eGFR (10/21/2023 10:52 PM CHEF MANAGER) eGFR 78 >=60 mL/min/1. 73 m2 [facility] Comment: Interpretive Data Reference Interval Normal [...] reviewed 2021. Blood 10/21/2023 10:5 2 PM CHEF MANAGER 10/21/2023 11:16 PM CHEF MANAGER Jimenez Henao MD LAB BLOOD ORDERABLES Final Result [facility] Department [place] [address] * (ABNORMAL) Differential, auto (10/21/2023 10:52 PM CHEF MANAGER) Neutrophil abs 5.0 1.5 - 6.5 K/cumm [facility] Imm gran abs 0.1 0.0 - 0.1 K/cumm [facility] Lymphocyte abs 1.4 0.8 - 3.3 K/cumm [facility] Monocyte abs 1.1(H) 0.2 - 0.8 K/cumm [facility] Eosinophil abs 0.1 0.0 - 0.5 K/cumm [facility] Basophil abs 0.0 0.0 - 0.1 K/cumm [facility] Neutrophil pct 65.0 % [facility] Comment: Interpretive Data Percent cell count reference ranges are not reported, since discordance with absolute values may lead to misinterpretation of CBC data. Current Interpretive Data was last revised on 2018. Imm gran pct 1.3 % [facility] Comment: Interpretive Data Percent cell count reference ranges are not reported, since discordance with absolute values may lead to misinterpretation of CBC data. Current Interpretive Data was last revised on 2018. Lymphocyte pct 17.8 % [facility] Comment: Interpretive Data Percent cell count reference ranges are not reported, since discordance with absolute values may lead to misinterpretation of CBC data. Current Interpretive Data was last revised on 2018. Monocyte pct 13.6 % [facility] Comment: Interpretive Data Percent cell count reference ranges are not reported, since discordance with absolute values may lead to misinterpretation of CBC data. Current Interpretive Data was last revised on 2018. Eosinophil pct 1.8 % [facility] Comment: Interpretive Data Percent cell count reference ranges are not reported, since discordance with absolute values may lead to misinterpretation of CBC data. Current Interpretive Data was last revised on 2018. Basophil pct 0.5 % [facility] Comment: Interpretive Data Percent cell count reference ranges are not reported, since discordance with absolute values may lead to misinterpretation of CBC data. Current Interpretive Data was last revised on 2018. Blood 10/21/2023 10:5 2 PM CHEF MANAGER 10/21/2023 11:17 PM CHEF MANAGER us Jimenez Henao MD LAB BLOOD ORDERABLES Final Result [facility] Department [place] [address] * (ABNORMAL) CBC with auto differential (10/21/2023 10:52 PM CHEF MANAGER) Pathologist [facility] WBC 7.7 3.8 - 9.9 K/cumm [facility] Hgb 10.4(L) 13.0 - 17.5 g/dL [facility] Hct 30.1(L) 38.9 - 50.3 % [facility] Plt 350 150 - 400 K/cumm [facility] MPV 10.8 9.1 - 12.3 fL [facility] RBC 3.31(L) 4.30 - 5.80 M/cumm [facility] MCV 90.9 81.3 - 96.4 fL [facility] MCH 31.4 27.1 - 33.3 pg [facility] MCHC 34.6 32.3 - 35.7 g/dL [facility] RDW CV 12.6 11.1 - 14.9 % [facility] RDW SD 41.8 35.7 - 48.1 fL [facility] NRBC abs 0.00 0.00 - 0.01 K/cumm [facility] Blood 10/21/2023 10:5 2 PM CHEF MANAGER 10/21/2023 11:17 PM CHEF MANAGER Tia Nolan OPERATING COST CLERK LAB BLOOD ORDERABLES F inal Result Performing Organization Address City/[facility]/ZIP Co de Phone Number [facility] Department [place] [address] * Basic metabolic panel (10/21/2023 10:52 PM CHEF MANAGER) Pathologist [facility] Sodium 136 135 - 145 mmol/L [facility] Potassium, pl 4.5 3.3 - 4.9 mmol/L [facility] Chloride 99 97 - 110 mmol/L [facility] CO2 27 22 - 32 mmol/L [facility] Anion gap 10 2 - 15 mmol/L [facility] BUN 12 6 - 25 mg/dL [facility] Creatinine 1.02 0.80 - 1.30 mg/dL [facility] Glucose 117 70 - 199 mg/dL [facility] Comment: Interpretive Data Fasting glucose >/= [...] 2022. Calcium 8.7 8.5 - 10.3 mg/dL [facility] Blood 10/21/2023 10:5 2 PM CHEF MANAGER 10/21/2023 11:16 PM CHEF MANAGER Tia Nolan OPERATING COST CLERK LAB BLOOD ORDERABLES F inal Result Performing Organization Address [facility] Co de Phone Number [facility] Department [place] [address] * eGFR (10/20/2023 9:38 PM CHEF MANAGER) Pathologist [facility] eGFR 80 >=60 mL/min/1. 73 m2 [facility] Comment: Interpretive Data Reference Interval Normal [...] last reviewed 2021. Blood 10/20/2023 9:38 PM CHEF MANAGER 10/20/2023 10:25 PM CHEF MANAGER us Jimenez Henao MD LAB BLOOD ORDERABLES Final Result [facility] Department [place] [address] * (ABNORMAL) Differential, auto (10/20/2023 9:38 PM CHEF MANAGER) Neutrophil abs 5.9 1.5 - 6.5 K/cumm [facility] Imm gran abs 0.2(H) 0.0 - 0.1 K/cumm [facility] Lymphocyte abs 1.1 0.8 - 3.3 K/cumm [facility] Monocyte abs 1.1(H) 0.2 - 0.8 K/cumm [facility] Eosinophil abs 0.2 0.0 - 0.5 K/cumm [facility] Basophil abs 0.1 0.0 - 0.1 K/cumm [facility] Neutrophil pct 69.2 % [facility] Comment: Interpretive Data Percent cell count reference ranges are not reported, since discordance with absolute values may lead to misinterpretation of CBC data. Current Interpretive Data was last revised on 2018. Imm gran pct 2.3 % [facility] Comment: Interpretive Data Percent cell count reference ranges are not reported, since discordance with absolute values may lead to misinterpretation of CBC data. Current Interpretive Data was last revised on 2018. Lymphocyte pct 13.2 % [facility] Comment: Interpretive Data Percent cell count reference ranges are not reported, since discordance with absolute values may lead to misinterpretation of CBC data. Current Interpretive Data was last revised on 2018. Monocyte pct 12.9 % [facility] Comment: Interpretive Data Percent cell count reference ranges are not reported, since discordance with absolute values may lead to misinterpretation of CBC data. Current Interpretive Data was last revised on 2018. Eosinophil pct 1.8 % [facility] Comment: Interpretive Data Percent cell count reference ranges are not reported, since discordance with absolute values may lead to misinterpretation of CBC data. Current Interpretive Data was last revised on 2018. Basophil pct 0.6 % [facility] Comment: Interpretive Data Percent cell count reference ranges are not reported, since discordance with absolute values may lead to misinterpretation of CBC data. Current Interpretive Data was last revised on 2018. Blood 10/20/2023 9:38 PM CHEF MANAGER 10/20/2023 10:25 PM CHEF MANAGER Jimenez Henao MD LAB BLOOD ORDERABLES Final Result [facility] [place] [address] * (ABNORMAL) CBC with auto differential (10/20/2023 9:38 PM CHEF MANAGER) [facility] WBC 8.5 3.8 - 9.9 K/cumm [facility] Hgb 11.0(L) 13.0 - 17.5 g/dL [facility] Comment: Interpretive Data A reference range for this assay has not been established for patients with an unknown legal sex. Please refer to the laboratory test catalog for established sex-specific reference intervals. Current interpretive data was last revised on 2023. Hct 32.7(L) 38.9 - 50.3 % [facility] Comment: Interpretive Data A reference range for this assay has not been established for patients with an unknown legal sex. Please refer to the laboratory test catalog for established sex-specific reference intervals. Current interpretive data was last revised on 2023. Plt 321 150 - 400 K/cumm [facility] MPV 11.0 9.1 - 12.3 fL [facility] RBC 3.50(L) 4.30 - 5.80 M/cumm [facility] Comment: Interpretive Data A reference range for this assay has not been established for patients with an unknown legal sex. Please refer to the laboratory test catalog for established sex-specific reference intervals. Current interpretive data was last revised on 2023. MCV 93.4 81.3 - 96.4 fL [facility] MCH 31.4 27.1 - 33.3 pg [facility] MCHC 33.6 32.3 - 35.7 g/dL [facility] RDW CV 12.5 11.1 - 14.9 % [facility] RDW SD 43.2 35.7 - 48.1 fL [facility] NRBC abs 0.00 0.00 - 0.01 K/cumm [facility] Blood 10/20/2023 9:38 PM CHEF MANAGER 10/20/2023 10:25 PM CHEF MANAGER us Tia Nolan NP LAB BLOOD ORDERABLES F inal Result [facility] Department [place] [address] * (ABNORMAL) Basic metabolic panel (10/20/2023 9:38 PM CHEF MANAGER) Pathologist [facility] Sodium 134(L) 135 - 145 mmol/L [facility] Potassium, pl 4.5 3.3 - 4.9 mmol/L [facility] Chloride 97 97 - 110 mmol/L [facility] CO2 27 22 - 32 mmol/L [facility] Anion gap 10 2 - 15 mmol/L [facility] BUN 12 6 - 25 mg/dL [facility] Creatinine 1.00 0.80 - 1.30 mg/dL [facility] Glucose 127 70 - 199 mg/dL [facility] Comment: Interpretive Data Fasting glucose >/= [...] 2022. Calcium 8.9 8.5 - 10.3 mg/dL [facility] Blood 10/20/2023 9:38 PM CHEF MANAGER 10/20/2023 10:25 PM CHEF MANAGER Tia Nolan OPERATING COST CLERK LAB BLOOD ORDERABLES F inal Result [facility] [place] [address] * eGFR (10/19/2023 9:11 PM CHEF MANAGER) Pathologist [facility] eGFR 81 >=60 mL/min/1. 73 m2 [facility] Comment: Interpretive Data Reference Interval Normal [...] last reviewed 2021. Blood 10/19/2023 9:11 PM CHEF MANAGER 10/19/2023 11:30 PM CHEF MANAGER us Jimenez Henao MD LAB BLOOD ORDERABLES Final Result [facility] [place] [address] * (ABNORMAL) Differential, auto (10/19/2023 9:11 PM CHEF MANAGER) Pathologist [facility] Neutrophil abs 8.2(H) 1.5 - 6.5 K/cumm [facility] Imm gran abs 0.2(H) 0.0 - 0.1 K/cumm [facility] Lymphocyte abs 0.9 0.8 - 3.3 K/cumm [facility] Monocyte abs 0.8 0.2 - 0.8 K/cumm [facility] Eosinophil abs 0.2 0.0 - 0.5 K/cumm [facility] Basophil abs 0.1 0.0 - 0.1 K/cumm [facility] Neutrophil pct 79.6 % [facility] Comment: Interpretive Data Percent cell count reference ranges are not reported, since discordance with absolute values may lead to misinterpretation of CBC data. Current Interpretive Data was last revised on 2018. Imm gran pct 2.0 % [facility] Comment: Interpretive Data Percent cell count reference ranges are not reported, since discordance with absolute values may lead to misinterpretation of CBC data. Current Interpretive Data was last revised on 2018. Lymphocyte pct 8.3 % [facility] Comment: Interpretive Data Percent cell count reference ranges are not reported, since discordance with absolute values may lead to misinterpretation of CBC data. Current Interpretive Data was last revised on 2018. Monocyte pct 8.0 % [facility] Comment: Interpretive Data Percent cell count reference ranges are not reported, since discordance with absolute values may lead to misinterpretation of CBC data. Current Interpretive Data was last revised on 2018. Eosinophil pct 1.6 % [facility] Comment: Interpretive Data Percent cell count reference ranges are not reported, since discordance with absolute values may lead to misinterpretation of CBC data. Current Interpretive Data was last revised on 2018. Basophil pct 0.5 % [facility] Comment: Interpretive Data Percent cell count reference ranges are not reported, since discordance with absolute values may lead to misinterpretation of CBC data. Current Interpretive Data was last revised on 2018. Blood 10/19/2023 9:11 PM CHEF MANAGER 10/19/2023 11:31 PM CHEF MANAGER Jimenez Henao MD LAB BLOOD ORDERABLES Final Result [facility] [place] [address] * (ABNORMAL) CBC with auto differential (10/19/2023 9:11 PM CHEF MANAGER) WBC 10.3(H) 3.8 - 9.9 K/cumm [facility] Hgb 11.0(L) 13.0 - 17.5 g/dL [facility] Comment: Interpretive Data A reference range for this assay has not been established for patients with an unknown legal sex. Please refer to the laboratory test catalog for established sex-specific reference intervals. Current interpretive data was last revised on 2023. Hct 31.6(L) 38.9 - 50.3 % [facility] Comment: Interpretive Data A reference range for this assay has not been established for patients with an unknown legal sex. Please refer to the laboratory test catalog for established sex-specific reference intervals. Current interpretive data was last revised on 2023. Plt 281 150 - 400 K/cumm [facility] MPV 11.5 9.1 - 12.3 fL [facility] RBC 3.46(L) 4.30 - 5.80 M/cumm [facility] Comment: Interpretive Data A reference range for this assay has not been established for patients with an unknown legal sex. Please refer to the laboratory test catalog for established sex-specific reference intervals. Current interpretive data was last revised on 2023. MCV 91.3 81.3 - 96.4 fL [facility] MCH 31.8 27.1 - 33.3 pg [facility] MCHC 34.8 32.3 - 35.7 g/dL [facility] RDW CV 12.7 11.1 - 14.9 % [facility] RDW SD 42.2 35.7 - 48.1 fL [facility] NRBC abs 0.00 0.00 - 0.01 K/cumm [facility] Blood 10/19/2023 9:11 PM CHEF MANAGER 10/19/2023 11:31 PM CHEF MANAGER us Tia Nolan OPERATING COST CLERK LAB BLOOD ORDERABLES F inal Result [facility] Department [place] [address] * Basic metabolic panel (10/19/2023 9:11 PM CHEF MANAGER) Sodium 135 135 - 145 mmol/L [facility] Potassium, pl 4.3 3.3 - 4.9 mmol/L [facility] Chloride 99 97 - 110 mmol/L [facility] CO2 27 22 - 32 mmol/L [facility] Anion gap 9 2 - 15 mmol/L [facility] BUN 17 6 - 25 mg/dL [facility] Creatinine 0.99 0.80 - 1.30 mg/dL [facility] Glucose 185 70 - 199 mg/dL [facility] Comment: Interpretive Data Fasting glucose >/= [...] Calcium 8.6 8.5 - 10.3 mg/dL [facility] Blood 10/19/2023 9:11 PM CHEF MANAGER 10/19/2023 11:30 PM CHEF MANAGER us Tia Nolan OPERATING COST CLERK LAB BLOOD ORDERABLES F inal Result [facility] [place] [address] * eGFR (10/18/2023 9:29 PM CHEF MANAGER) eGFR 87 >=60 mL/min/1. 73 m2 [facility] Comment: Interpretive Data Reference Interval Normal [...] last reviewed 2021. Blood 10/18/2023 9:29 PM CHEF MANAGER 10/18/2023 10:27 PM CHEF MANAGER us Jimenez Henao MD LAB BLOOD ORDERABLES Final Result [facility] [place] [address] * (ABNORMAL) Differential, auto (10/18/2023 9:29 PM CHEF MANAGER) Neutrophil abs 13.6(H) 1.5 - 6.5 K/cumm [facility] Imm gran abs 0.2(H) 0.0 - 0.1 [facility] Lymphocyte abs 1.4 0.8 - 3.3 K/cumm [facility] Monocyte abs 1.0(H) 0.2 - 0.8 K/cumm [facility] Eosinophil abs 0.2 0.0 - 0.5 K/cumm [facility] Basophil abs 0.0 0.0 - 0.1 K/cumm [facility] Neutrophil pct 82.8 % [facility] Comment: Interpretive Data Percent cell count reference ranges are not reported, since discordance with absolute values may lead to misinterpretation of CBC data. Current Interpretive Data was last revised on 2018. Imm gran pct 1.5 % [facility] Comment: Interpretive Data Percent cell count reference ranges are not reported, since discordance with absolute values may lead to misinterpretation of CBC data. Current Interpretive Data was last revised on 2018. Lymphocyte pct 8.4 % [facility] Comment: Interpretive Data Percent cell count reference ranges are not reported, since discordance with absolute values may lead to misinterpretation of CBC data. Current Interpretive Data was last revised on 2018. Monocyte pct 6.1 % [facility] Comment: Interpretive Data Percent cell count reference ranges are not reported, since discordance with absolute values may lead to misinterpretation of CBC data. Current Interpretive Data was last revised on 2018. Eosinophil pct 1.0 % [facility] Comment: Interpretive Data Percent cell count reference ranges are not reported, since discordance with absolute values may lead to misinterpretation of CBC data. Current Interpretive Data was last revised on 2018. Basophil pct 0.2 % [facility] Comment: Interpretive Data Percent cell count reference ranges are not reported, since discordance with absolute values may lead to misinterpretation of CBC data. Current Interpretive Data was last revised on 2018. Blood 10/18/2023 9:29 PM CHEF MANAGER 10/18/2023 10:27 PM CHEF MANAGER us Jimenez Henao MD LAB BLOOD ORDERABLES Final Result [facility] [place] [address] * (ABNORMAL) CBC with auto differential (10/18/2023 9:29 PM CHEF MANAGER) Pathologist [facility] WBC 16.4(H) 3.8 - 9.9 K/cumm [facility] Hgb 11.3(L) 13.0 - 17.5 g/dL [facility] Comment: Interpretive Data A reference range for this assay has not been established for patients with an unknown legal sex. Please refer to the laboratory test catalog for established sex-specific reference intervals. Current interpretive data was last revised on 2023. Hct 32.8(L) 38.9 - 50.3 % [facility] Comment: Interpretive Data A reference range for this assay has not been established for patients with an unknown legal sex. Please refer to the laboratory test catalog for established sex-specific reference intervals. Current interpretive data was last revised on 2023. Plt 286 150 - 400 K/cumm [facility] MPV 11.3 9.1 - 12.3 fL [facility] RBC 3.53(L) 4.30 - 5.80 M/cumm [facility] Comment: Interpretive Data A reference range for this assay has not been established for patients with an unknown legal sex. Please refer to the laboratory test catalog for established sex-specific reference intervals. Current interpretive data was last revised on 2023. MCV 92.9 81.3 - 96.4 fL [facility] MCH 32.0 27.1 - 33.3 pg [facility] MCHC 34.5 32.3 - 35.7 g/dL [facility] RDW CV 12.6 11.1 - 14.9 % [facility] RDW SD 43.3 35.7 - 48.1 fL [facility] NRBC abs 0.00 0.00 - 0.01 K/cumm [facility] Blood 10/18/2023 9:29 PM CHEF MANAGER 10/18/2023 10:27 PM CHEF MANAGER Tia Nolan OPERATING COST CLERK LAB BLOOD ORDERABLES F inal Result [facility] [place] [address] * (ABNORMAL) Basic metabolic panel (10/18/2023 9:29 PM CHEF MANAGER) Sodium 132(L) 135 - 145 mmol/L [facility] Potassium, pl 4.0 3.3 - 4.9 mmol/L [facility] Chloride 97 97 - 110 mmol/L [facility] CO2 27 22 - 32 mmol/L [facility] Anion gap 8 2 - 15 mmol/L [facility] BUN 16 6 - 25 mg/dL [facility] Creatinine 0.93 0.80 - 1.30 mg/dL [facility] Glucose 151 70 - 199 mg/dL [facility] Comment: Interpretive Data Fasting glucose >/= [...] Calcium 8.2(L) 8.5 - 10.3 mg/dL [facility] Blood 10/18/2023 9:29 PM CHEF MANAGER 10/18/2023 10:27 PM CHEF MANAGER us Tia Nolan NP LAB BLOOD ORDERABLES F inal Result [facility] [place] [address] * Dexa Axial Skeleton Bone Density 1 or 2 Site (10/18/2023 12:45 PM CHEF MANAGER) Anatomical Region Laterality Modality Body N/A Digital Radiogra phy 10/18/2023 1:29 PM CHEF MANAGER Impressions 10/18/2023 2:27 PM CHEF MANAGER ?? 1. The bone mineral density of [...] Bella MD, Ph.D Narrative 10/18/2023 2:27 PM CHEF MANAGER BONE DENSITOMETRY OF THE SPINE AND HIP [...] Fluoroscopy < 1 Hour (10/18/2023 11:27 AM CHEF MANAGER) Narrative [id number] - 10/18/2023 11:27 AM CHEF MANAGER The images from this study are not interpreted by Radiology. ??Please refer to the physician's procedure / OR operative note. us Gbariel Bennett MD IMG FLUOROSCOPY PROCEDURES Fide l Result Performing Organization Address [facility] Co de Phone Number [email or web address] * eGFR (10/17/2023 10:52 PM CHEF MANAGER) eGFR 83 >=60 mL/min/1. 73 m2 [facility] Comment: Interpretive Data Reference Interval Normal [...] reviewed 2021. Blood 10/17/2023 10:5 2 PM CHEF MANAGER 10/17/2023 11:04 PM CHEF MANAGER us Jimenez Henao MD LAB BLOOD ORDERABLES Final Result Performing Organization Address [facility] Co de Phone Number [facility] Department [place] [address] * (ABNORMAL) Differential, auto (10/17/2023 10:52 PM CHEF MANAGER) Neutrophil abs 9.0(H) 1.5 - 6.5 K/cumm [facility] Imm gran abs 0.2(H) 0.0 - 0.1 K/cumm [facility] Lymphocyte abs 1.4 0.8 - 3.3 K/cumm [facility] Monocyte abs 0.8 0.2 - 0.8 K/cumm [facility] Eosinophil abs 0.2 0.0 - 0.5 K/cumm [facility] Basophil abs 0.1 0.0 - 0.1 K/cumm [facility] Neutrophil pct 77.7 % [facility] Comment: Interpretive Data Percent cell count reference ranges are not reported, since discordance with absolute values may lead to misinterpretation of CBC data. Current Interpretive Data was last revised on 2018. Imm gran pct 1.7 % [facility] Comment: Interpretive Data Percent cell count reference ranges are not reported, since discordance with absolute values may lead to misinterpretation of CBC data. Current Interpretive Data was last revised on 2018. Lymphocyte pct 11.7 % [facility] Comment: Interpretive Data Percent cell count reference ranges are not reported, since discordance with absolute values may lead to misinterpretation of CBC data. Current Interpretive Data was last revised on 2018. Monocyte pct 6.8 % [facility] Comment: Interpretive Data Percent cell count reference ranges are not reported, since discordance with absolute values may lead to misinterpretation of CBC data. Current Interpretive Data was last revised on 2018. Eosinophil pct 1.7 % [facility] Comment: Interpretive Data Percent cell count [...] on 2018. Blood 10/17/2023 10:5 2 PM CHEF MANAGER 10/17/2023 11:04 PM CHEF MANAGER us Jimenez Henao MD LAB BLOOD ORDERABLES Final Result Performing Organization Address [facility] de Phone Number [facility] [place] [place] [address] * aPTT (10/17/2023 10:52 PM CHEF MANAGER) aPTT 32 28 - 38 sec [facility] Comment: Interpretive Data Heparin therapeutic range: 66.0 - 100.0 seconds. Range based on correlation with therapeutic heparin activity range of 0.3 - 0.7 Units/mL. Current interpretive data was last revised on 2023. Blood 10/17/2023 10:5 2 PM CHEF MANAGER 10/17/2023 11:07 PM CHEF MANAGER us Jimenez Henao MD LAB BLOOD ORDERABLES Final Result Performing Organization Address [facility] [place] [address] * Protime-INR (10/17/2023 10:52 PM CHEF MANAGER) PT 12.6 10.3 - 13.7 sec [facility] INR 1.11 0.90 - 1.20 [facility] Comment: Interpretive data Oral anticoagulant therapeutic ranges: Venous thromboembolism prophylaxis or treatment: 2.0-3.0 CARDIOLOGY Standard range: 2.0-3.0 High-intensity range: 2.5-3.5 Refer to indication-specific guidelines for appropriate target ranges for prosthetic heart valve replacement. Current interpretive data was last revised on 2019. Blood 10/17/2023 10:5 2 PM CHEF MANAGER 10/17/2023 11:07 PM CHEF MANAGER Result Caity Henao MD LAB BLOOD ORDERABLES Final Result [facility] [place] [address] * (ABNORMAL) CBC with auto differential (10/17/2023 10:52 PM CHEF MANAGER) [facility] WBC 11.6(H) 3.8 - 9.9 K/cumm [facility] Hgb 11.7(L) 13.0 - 17.5 g/dL [facility] Comment: Interpretive Data A reference range for this assay has not been established for patients with an unknown legal sex. Please refer to the laboratory test catalog for established sex-specific reference intervals. Current interpretive data was last revised on 2023. Hct 33.3(L) 38.9 - 50.3 % [facility] Comment: Interpretive Data A reference range for this assay has not been established for patients with an unknown legal sex. Please refer to the laboratory test catalog for established sex-specific reference intervals. Current interpretive data was last revised on 2023. Plt 256 150 - 400 K/cumm [facility] MPV 11.0 9.1 - 12.3 fL [facility] RBC 3.68(L) 4.30 - 5.80 M/cumm [facility] Comment: Interpretive Data A reference range for this assay has not been established for patients with an unknown legal sex. Please refer to the laboratory test catalog for established sex-specific reference intervals. Current interpretive data was last revised on 2023. MCV 90.5 81.3 - 96.4 fL [facility] MCH 31.8 27.1 - 33.3 pg [facility] MCHC 35.1 32.3 - 35.7 g/dL [facility] RDW CV 12.5 11.1 - 14.9 % [facility] RDW SD 41.4 35.7 - 48.1 fL [facility] NRBC abs 0.00 0.00 - 0.01 K/cumm [facility] Blood 10/17/2023 10:5 2 PM CHEF MANAGER 10/17/2023 11:04 PM CHEF MANAGER us Tia Nolan OPERATING COST CLERK LAB BLOOD ORDERABLES F inal Result [facility] Department [place] [address] * (ABNORMAL) Basic metabolic panel (10/17/2023 10:52 PM CHEF MANAGER) Sodium 133(L) 135 - 145 mmol/L [facility] Potassium, pl 3.5 3.3 - 4.9 mmol/L [facility] Chloride 100 97 - 110 mmol/L [facility] CO2 27 22 - 32 mmol/L [facility] Anion gap 6 2 - 15 mmol/L [facility] BUN 12 6 - 25 mg/dL [facility] Creatinine 0.97 0.80 - 1.30 mg/dL [facility] Glucose 186 70 - 199 mg/dL [facility] Comment: Interpretive Data Fasting glucose >/= [...] Calcium 8.4(L) 8.5 - 10.3 mg/dL [facility] Blood 10/17/2023 10:5 2 PM CHEF MANAGER 10/17/2023 11:04 PM CHEF MANAGER Tia Nolan OPERATING COST CLERK LAB BLOOD ORDERABLES F inal Result Performing Organization Address [facility]/ZIP Co de Phone Number [facility] Department [place] [address] * CT Urogram WO 3D (10/16/2023 12:36 PM CHEF MANAGER) Anatomical Region Laterality Modality Body N/A Computed Tomogra phy 10/16/2023 1:29 PM CHEF MANAGER Impressions 10/16/2023 1:59 PM CHEF MANAGER 1. ??Postprocedural changes of percutaneous nephrostomy tube [...] Eric Irene M.D. Narrative 10/16/2023 1:59 PM CHEF MANAGER EXAMINATION: CT UROGRAPHY WITH AND WITHOUT CONTRAST [...] IR Percutaneous Nephrostomy Left (10/14/2023 1:38 PM CHEF MANAGER) Anatomical Region Laterality Modality Body Left X-Ray Angiograph y 10/14/2023 3:34 PM CHEF MANAGER Impressions 10/14/2023 7:38 PM CHEF MANAGER Successful left percutaneous nephrostomy. Impacted stone in [...] Kendrick Hughes M.D. Narrative 10/14/2023 7:38 PM CHEF MANAGER EXAMINATION: IR PERCUTANEOUS NEPHROSTOMY LEFT HISTORY/INDICATION: ??73-year-old [...] was obtained. Prior to beginning the procedure, [place] Protocol was performed to confirm the patient's [...] was dilated before placing a 10 Fr [place] catheter. ??The retaining loop was formed and [...] was obtained. Prior to beginning the procedure, Gut[place]berg Protocol was performed to confirm the patient's [...] was dilated before placing a 10 Fr [place] catheter. The retaining loop was formed and [...] (ABNORMAL) Urinalysis, microscopic only (10/14/2023 1:35 PM CHEF MANAGER) WBC, ur 0-5 0 - 5 /HPF [facility] RBC, ur >50(A) 0 - 2 /HPF [facility] Epithelial cells, squamous, ur 1-5 0 - 5 /HPF [facility] Bacteria, ur Trace(A) [facility] Mucous, ur Present(A) [facility] Urine 10/14/2023 1:35 PM CHEF MANAGER 10/14/2023 3:26 PM CHEF MANAGER Marquise Lim MD LAB URINE ORDERABLES Final Result Performing Organization Address City/[facility]/ZIP Co de Phone Number [facility] Department [place] [address] * Urine culture Urine, kidney aspirate Left (10/14/2023 1:35 PM CHEF MANAGER) Report Final Report: No growth [facility] Urine, kidney aspirate (Left) 10/14/2023 1:35 PM CHEF MANAGER 10/14/2023 3:52 PM CHEF MANAGER Narrative [facility] - 10/16/2023 4:49 PM CHEF MANAGER Testing performed by [facility] ([phone]) Marquise Lim MD LAB MICROBIOLOGY - GENERAL ORDERABLES Final Result Performing Organization Address City/[facility]/ZIP Co de Phone Number [facility] Department [place] [address] * (ABNORMAL) Urinalysis reflex to microscopic and culture Urine (10/14/2023 1:35 PM CHEF MANAGER) Color, ur Red(A) Yellow [facility] Clarity, ur Cloudy(A) Clear [facility] Specific gravity, ur 1.015 1.003 - 1.030 [facility] pH, urine 6.0 [facility] Comment: Interpretive Data ? Urine pH is affected by diet, medications, systemic acid-base disturbances, and renal tubular function. ??pH may affect urinary stone formation. ??For example, urine pH below 6.0 may help reduce the tendency for calcium phosphate stones and pH greater than 6.0 may reduce the tendency for uric acid stone formation. Source: [facility] [employer] Current Interpretive Data was last revised on 2017 Protein, ur ql 1+(A) Negative [facility] Glucose, ur ql Negative Negative [facility] Ketones, ur Negative Negative [facility] Bilirubin, ur 1+(A) Negative [facility] Blood, ur 4+(A) Negative [facility] Urobilinogen, ur 0.2 <2.0 mg/dL [facility] Nitrite, ur Negative Negative [facility] Leukocyte esterase, ur 2+(A) Negative [facility] UA reflex comment Reflex to microscopic UA will be performed. [facility] Urine 10/14/2023 1:35 PM CHEF MANAGER 10/14/2023 3:26 PM CHEF MANAGER us Marquise Lim MD LAB MICROBIOLOGY - GENERAL ORDERABLES Final Result [facility] [place] [address] * US Kidney Complete (10/14/2023 7:15 AM CHEF MANAGER) Anatomical Region Laterality Modality Kidney N/A Ultrasound 10/14/2023 6:15 PM CHEF MANAGER Impressions 10/14/2023 6:15 PM CHEF MANAGER 1. ??No hydronephrosis. ??Given patient had obstructive [...] Robert Yeboah M.D. Narrative 10/14/2023 6:15 PM CHEF MANAGER EXAMINATION: COMPLETE RENAL SONOGRAM HISTORY: ??Obstructive left [...] Res ult * eGFR (10/14/2023 6:30 AM CHEF MANAGER) eGFR 64 >=60 mL/min/1. 73 m2 [facility] [...] last reviewed 2021. Blood 10/14/2023 6:30 AM CHEF MANAGER 10/14/2023 7:44 AM CHEF MANAGER us Marquise Lim MD LAB BLOOD ORDERABLES Final Result [facility] Department [place] [address] * (ABNORMAL) Differential, auto (10/14/2023 6:30 AM CHEF MANAGER) Neutrophil abs 7.4(H) 1.5 - 6.5 K/cumm [facility] Imm gran abs 0.1 0.0 - 0.1 K/cumm [facility] Lymphocyte abs 0.6(L) 0.8 - 3.3 K/cumm [facility] Monocyte abs 1.3(H) 0.2 - 0.8 K/cumm [facility] Eosinophil abs 0.1 0.0 - 0.5 K/cumm [facility] Basophil abs 0.0 0.0 - 0.1 K/cumm [facility] Neutrophil pct 79.0 % [facility] Comment: Interpretive Data Percent cell count reference ranges are not reported, since discordance with absolute values may lead to misinterpretation of CBC data. Current Interpretive Data was last revised on 2018. Imm gran pct 0.6 % [facility] Comment: Interpretive Data Percent cell count reference ranges are not reported, since discordance with absolute values may lead to misinterpretation of CBC data. Current Interpretive Data was last revised on 2018. Lymphocyte pct 6.3 % [facility] Comment: Interpretive Data Percent cell count reference ranges are not reported, since discordance with absolute values may lead to misinterpretation of CBC data. Current Interpretive Data was last revised on 2018. Monocyte pct 13.3 % [facility] Comment: Interpretive Data Percent cell count reference ranges are not reported, since discordance with absolute values may lead to misinterpretation of CBC data. Current Interpretive Data was last revised on 2018. Eosinophil pct 0.5 % [facility] Comment: Interpretive Data Percent cell count reference ranges are not reported, since discordance with absolute values may lead to misinterpretation of CBC data. Current Interpretive Data was last revised on 2018. Basophil pct 0.3 % [facility] Comment: Interpretive Data Percent cell count reference ranges are not reported, since discordance with absolute values may lead to misinterpretation of CBC data. Current Interpretive Data was last revised on 2018. Blood 10/14/2023 6:30 AM CHEF MANAGER 10/14/2023 7:20 AM CHEF MANAGER us Marquise Lim MD LAB BLOOD ORDERABLES Final Result [facility] [place] [address] * (ABNORMAL) Comprehensive metabolic panel (10/14/2023 6:30 AM CHEF MANAGER) Sodium 136 135 - 145 mmol/L [facility] Potassium, pl 3.4 3.3 - 4.9 mmol/L [facility] Chloride 101 97 - 110 mmol/L [facility] CO2 24 22 - 32 mmol/L [facility] Anion gap 11 2 - 15 mmol/L [facility] BUN 24 6 - 25 mg/dL [facility] Creatinine 1.20 0.80 - 1.30 mg/dL [facility] Glucose 153 70 - 199 mg/dL [facility] Comment: Interpretive Data Fasting glucose >/= [...] Calcium 8.5 8.5 - 10.3 mg/dL [facility] Bilirubin, total 0.5 0.1 - 1.2 mg/dL [facility] Protein, pl 5.8(L) 6.5 - 8.5 g/dL [facility] Albumin 2.7(L) 3.5 - 5.0 g/dL [facility] Alk phos 108 40 - 130 Units/L [facility] ALT 67(H) 7 - 55 Units/L [facility] AST 49 10 - 50 Units/L [facility] Blood 10/14/2023 6:30 AM CHEF MANAGER 10/14/2023 7:20 AM CHEF MANAGER us Marquise Lim MD LAB BLOOD ORDERABLES Final Result [facility] Department [place] [address] * (ABNORMAL) CBC with auto differential (10/14/2023 6:30 AM CHEF MANAGER) [facility] WBC 9.4 3.8 - 9.9 K/cumm [facility] Hgb 11.4(L) 13.0 - 17.5 g/dL [facility] Comment: Interpretive Data A reference range for this assay has not been established for patients with an unknown legal sex. Please refer to the laboratory test catalog for established sex-specific reference intervals. Current interpretive data was last revised on 2023. Hct 32.2(L) 38.9 - 50.3 % [facility] Comment: Interpretive Data A reference range for this assay has not been established for patients with an unknown legal sex. Please refer to the laboratory test catalog for established sex-specific reference intervals. Current interpretive data was last revised on 2023. Plt 134(L) 150 - 400 K/cumm [facility] MPV 12.0 9.1 - 12.3 fL [facility] RBC 3.53(L) 4.30 - 5.80 M/cumm [facility] Comment: Interpretive Data A reference range for this assay has not been established for patients with an unknown legal sex. Please refer to the laboratory test catalog for established sex-specific reference intervals. Current interpretive data was last revised on 2023. MCV 91.2 81.3 - 96.4 fL [facility] MCH 32.3 27.1 - 33.3 pg [facility] MCHC 35.4 32.3 - 35.7 g/dL [facility] RDW CV 12.8 11.1 - 14.9 % [facility] RDW SD 42.2 35.7 - 48.1 fL [facility] NRBC abs 0.00 0.00 - 0.01 K/cumm [facility] Blood 10/14/2023 6:30 AM CHEF MANAGER 10/14/2023 7:20 AM CHEF MANAGER us Marquise Lim MD LAB BLOOD ORDERABLES Final Result [facility] Department [place] [address] * Blood culture Blood (10/13/2023 10:59 PM CHEF MANAGER) Report Final Report: No growth [facility] CORRAL Blood 10/13/2023 10:5 9 PM CHEF MANAGER 10/14/2023 12:27 AM CHEF MANAGER Narrative [facility] CORRAL - 10/18/2023 7:00 AM CHEF MANAGER Collection->Peripheral 1. ?Blood cultures are incubated for [...] organism identification may be performed using the Lamodaigene Gram-Positive Blood Culture Assay. This assay detects microbial DNA in positive blood culture broth via hybridization of target DNA to capture oligonucleotides on a microarray. This assay has been cleared by the [place] Food and Drug Administration and its performance characteristics have been verified by the [facility]. 5. ?For questions about this culture, contact the Microbiology Laboratory at [phone]. Interpretive data was last revised on 2020. Marquise Lim MD LAB MICROBIOLOGY - GENERAL ORDERABLES Final Result [facility] [place] [address] * Blood culture Blood (10/13/2023 11:01 AM CHEF MANAGER) Report Final Report: No growth [facility] ZARAGOZA Blood 10/13/2023 11:0 1 AM CHEF MANAGER 10/13/2023 12:16 PM CHEF MANAGER Narrative [facility] CORRAL - 10/18/2023 8:10 AM CHEF MANAGER 1. ?Blood cultures are incubated for 4 [...] organism identification may be performed using the Lamodaigene Gram-Positive Blood Culture Assay. This assay detects microbial DNA in positive blood culture broth via hybridization of target DNA to capture oligonucleotides on a microarray. This assay has been cleared by the [place] Food and Drug Administration and its performance characteristics have been verified by the [facility]. 5. ?For questions about this culture, contact the Microbiology Laboratory at [phone]. Interpretive data was last revised on 2020. us Marquise Lim MD LAB MICROBIOLOGY - GENERAL ORDERABLES Final Result [facility] [place] [address] * [place] Fluoroscopy < 1 Hour (10/13/2023 9:48 AM CHEF MANAGER) Anatomical Region Laterality Modality Body N/A X-Ray Angiograph y 10/13/2023 7:06 PM CHEF MANAGER Impressions 10/14/2023 1:30 PM CHEF MANAGER Unsuccessful attempt at left nephrostomy placement in this patient with a nondilated system. Dictated by: Ana Alfaro M.D. The radiology attending physician has personally reviewed this study, and had reviewed and/or edited this written report and agrees with it. Electronically signed by: Rg Mar M.D. Narrative 10/14/2023 1:30 PM CHEF MANAGER EXAMINATION: FL FLUOROSCOPY < 1 HOUR HISTORY/INDICATION: [...] was obtained. Prior to beginning the procedure, Guttenberg Protocol was performed to confirm the patient's [...] was obtained. Prior to beginning the procedure, Guttenberg Protocol was performed to confirm the patient's [...] inal Result * eGFR (10/13/2023 6:50 AM CHEF MANAGER) eGFR >90 >=60 mL/min/1. 73 m2 [facility] Comment: Interpretive Data Reference Interval Normal [...] last reviewed 2021. Blood 10/13/2023 6:50 AM CHEF MANAGER 10/13/2023 7:55 AM CHEF MANAGER us Severo Merlos MD LAB BLOOD ORDERABLES Final R esult [facility] [place] [address] * (ABNORMAL) Differential, auto (10/13/2023 6:50 AM CHEF MANAGER) Neutrophil abs 5.8 1.5 - 6.5 K/cumm [facility] Imm gran abs 0.0 0.0 - 0.1 K/cumm [facility] Lymphocyte abs 0.2(L) 0.8 - 3.3 K/cumm [facility] Monocyte abs 0.2 0.2 - 0.8 K/cumm [facility] Eosinophil abs 0.0 0.0 - 0.5 K/cumm [facility] Basophil abs 0.0 0.0 - 0.1 K/cumm [facility] Neutrophil pct 92.8 % [facility] Comment: Interpretive Data Percent cell count reference ranges are not reported, since discordance with absolute values may lead to misinterpretation of CBC data. Current Interpretive Data was last revised on 2018. Imm gran pct 0.5 % [facility] Comment: Interpretive Data Percent cell count reference ranges are not reported, since discordance with absolute values may lead to misinterpretation of CBC data. Current Interpretive Data was last revised on 2018. Lymphocyte pct 2.7 % [facility] Comment: Interpretive Data Percent cell count reference ranges are not reported, since discordance with absolute values may lead to misinterpretation of CBC data. Current Interpretive Data was last revised on 2018. Monocyte pct 3.5 % [facility] Comment: Interpretive Data Percent cell count reference ranges are not reported, since discordance with absolute values may lead to misinterpretation of CBC data. Current Interpretive Data was last revised on 2018. Eosinophil pct 0.2 % [facility] Comment: Interpretive Data Percent cell count reference ranges are not reported, since discordance with absolute values may lead to misinterpretation of CBC data. Current Interpretive Data was last revised on 2018. Basophil pct 0.3 % [facility] Comment: Interpretive Data Percent cell count reference ranges are not reported, since discordance with absolute values may lead to misinterpretation of CBC data. Current Interpretive Data was last revised on 2018. Blood 10/13/2023 6:50 AM CHEF MANAGER 10/13/2023 7:55 AM CHEF MANAGER us Severo Merlos MD LAB BLOOD ORDERABLES Final R esult [facility] [place] [address] * (ABNORMAL) CBC with auto differential (10/13/2023 6:50 AM CHEF MANAGER) Pathologist [facility] WBC 6.2 3.8 - 9.9 K/cumm [facility] Hgb 13.3 13.0 - 17.5 g/dL [facility] Comment: Interpretive Data A reference range for this assay has not been established for patients with an unknown legal sex. Please refer to the laboratory test catalog for established sex-specific reference intervals. Current interpretive data was last revised on 2023. Hct 37.0(L) 38.9 - 50.3 % [facility] Comment: Interpretive Data A reference range for this assay has not been established for patients with an unknown legal sex. Please refer to the laboratory test catalog for established sex-specific reference intervals. Current interpretive data was last revised on 2023. Plt 143(L) 150 - 400 K/cumm [facility] MPV 11.6 9.1 - 12.3 fL [facility] RBC 4.11(L) 4.30 - 5.80 M/cumm [facility] Comment: Interpretive Data A reference range for this assay has not been established for patients with an unknown legal sex. Please refer to the laboratory test catalog for established sex-specific reference intervals. Current interpretive data was last revised on 2023. MCV 90.0 81.3 - 96.4 fL [facility] MCH 32.4 27.1 - 33.3 pg [facility] MCHC 35.9(H) 32.3 - 35.7 g/dL [facility] RDW CV 12.8 11.1 - 14.9 % [facility] RDW SD 41.8 35.7 - 48.1 fL [facility] NRBC abs 0.00 0.00 - 0.01 K/cumm [facility] Blood 10/13/2023 6:50 AM CHEF MANAGER 10/13/2023 7:55 AM CHEF MANAGER Severo Merlos MD LAB BLOOD ORDERABLES Final R esult [facility] [place] [address] * (ABNORMAL) Comprehensive metabolic panel (10/13/2023 6:50 AM CHEF MANAGER) Sodium 137 135 - 145 mmol/L [facility] Potassium, pl 3.7 3.3 - 4.9 mmol/L [facility] Chloride 101 97 - 110 mmol/L [facility] CO2 26 22 - 32 mmol/L [facility] Anion gap 10 2 - 15 mmol/L [facility] BUN 17 6 - 25 mg/dL [facility] Creatinine 0.82 0.80 - 1.30 mg/dL [facility] Glucose 160 70 - 199 mg/dL [facility] Comment: Interpretive Data Fasting glucose >/= [...] 2022. Calcium 9.1 8.5 - 10.3 mg/dL [facility] Bilirubin, total 0.7 0.1 - 1.2 mg/dL [facility] Protein, pl 6.8 6.5 - 8.5 g/dL [facility] Albumin 3.6 3.5 - 5.0 g/dL [facility] Alk phos 113 40 - 130 Units/L [facility] ALT 68(H) 7 - 55 Units/L [facility] Comment:Reviewed AST 50 10 - 50 Units/L [facility] Blood 10/13/2023 6:50 AM CHEF MANAGER 10/13/2023 7:55 AM CHEF MANAGER Severo Merlos MD LAB BLOOD ORDERABLES Final R esult Performing Organization Address City/[facility]/ZIP Co de Phone Number [facility] [place] [address] * [place] Fluoroscopy < 1 Hour (10/13/2023 3:00 AM CHEF MANAGER) Narrative [facility] - 10/13/2023 10:04 AM CHEF MANAGER The images from this study are not interpreted by Radiology. ??Please refer to the physician's procedure / OR operative note. Severo Merlos MD IMG FLUOROSCOPY PROCEDURES F inal Result [id number] * MRI Spine Total Complete W WO Contrast (10/12/2023 11:44 PM CHEF MANAGER) Anatomical Region Laterality Modality Spine N/A Magnetic Resonan ce 10/13/2023 12:4 6 AM CHEF MANAGER Impressions 10/13/2023 11:39 AM CHEF MANAGER 1. ??Redemonstrated degenerative disc disease of the [...] Kym Buckley M.D. Narrative 10/13/2023 11:39 AM CHEF MANAGER EXAMINATION: 1. Magnetic resonance imaging (MRI) [...] * Blood culture Blood (10/12/2023 9:38 PM CHEF MANAGER) Report Final Report: No growth [facility] CORRAL Blood 10/12/2023 9:38 PM CHEF MANAGER 10/12/2023 9:59 PM CHEF MANAGER Narrative [facility] ZARAGOZA - 10/17/2023 7:00 AM CHEF MANAGER Second site Collection->Peripheral 1. ?Blood cultures are [...] performance characteristics have been verified by the [facility]. 5. ?For questions about this culture, contact the Microbiology Laboratory at [phone]. Interpretive data was last revised on 2020. us Amol Hargrove MD LAB MICROBIOLOGY - [employer] ORDERABLES Final Result [facility] [place] [address] * CT Chest Abdomen Pelvis W Contrast (10/12/2023 9:00 PM CHEF MANAGER) Anatomical Region Laterality Modality Body N/A Computed Tomogra phy 10/12/2023 9:35 PM CHEF MANAGER Impressions 10/13/2023 10:26 AM CHEF MANAGER 1. ??Obstructing renal calculus in unchanged position [...] Mich Cabrera M.D. Narrative 10/13/2023 10:26 AM CHEF MANAGER EXAMINATION: CT CHEST ABDOMEN PELVIS W CONTRAST [...] (ABNORMAL) Erythrocyte sedimentation rate (10/12/2023 7:50 PM CHEF MANAGER) Pathologist [facility] Erythrocyte sedimentation rate 48(H) 1 - 20 mm/[facility] Blood 10/12/2023 7:50 PM CHEF MANAGER 10/12/2023 8:11 PM CHEF MANAGER Rafael Cowan MD LAB BLOOD ORDERABLES Fin al Result [facility] Department [place] [address] * (ABNORMAL) CRP (acute phase) (10/12/2023 7:50 PM CHEF MANAGER) Pathologist [facility] CRP 210.7(H) <=10.0 mg/L [facility] Blood 10/12/2023 7:50 PM CHEF MANAGER 10/12/2023 8:11 PM CHEF MANAGER Rafael Cowan MD LAB BLOOD ORDERABLES Fin al Result [facility] [place] [address] * eGFR (10/12/2023 7:50 PM CHEF MANAGER) eGFR 81 >=60 mL/min/1. 73 m2 [facility] Comment: Interpretive Data Reference Interval Normal [...] last reviewed 2021. Blood 10/12/2023 7:50 PM CHEF MANAGER 10/12/2023 8:23 PM CHEF MANAGER Rafael Cowan MD LAB BLOOD ORDERABLES Fin al Result Performing Organization Address [facility] Co de Phone Number [facility] [place] [address] * (ABNORMAL) Urine culture Urine (10/12/2023 7:50 PM CHEF MANAGER) Report Final Report: Greater than or equal to 100,000 colonies/mL of Escherichia coli Greater than or equal to 100,000 colonies/mL of Escherichia coli #2 For susceptibility results, refer to accession number [id number] on the urine culture from 10/11/23 (.) [facility] Organism ESCHERICHIA COLI [facility] Organism ESCHERICHIA COLI [facility] Urine 10/12/2023 7:50 PM CHEF MANAGER 10/12/2023 9:46 PM CHEF MANAGER Narrative [facility] - 10/14/2023 9:24 AM CHEF MANAGER Urine culture reflexed based upon urinalysis results. Testing performed by [facility] ([phone]) us Rafael Cowan MD LAB MICROBIOLOGY - GENER AL ORDERABLES Final Result Performing Organization Address [facility] de Phone Number [facility] [place] [address] * (ABNORMAL) Urinalysis, microscopic only (10/12/2023 7:50 PM CHEF MANAGER) WBC, ur >50(A) 0 - 5 /HPF [facility] RBC, ur 6-10(A) 0 - 2 /HPF [facility] Bacteria, ur 3+(A) [facility] Culture Reflex Comment Reflex to urine culture will be performed. [facility] Urine 10/12/2023 7:50 PM CHEF MANAGER 10/12/2023 8:11 PM CHEF MANAGER us Rafael Cowan MD LAB URINE ORDERABLES Fin al Result Performing Organization Address [facility] Co de Phone Number [facility] Department [place] [address] * (ABNORMAL) Differential, auto (10/12/2023 7:50 PM CHEF MANAGER) Neutrophil abs 6.4 1.5 - 6.5 K/cumm [facility] Imm gran abs 0.0 0.0 - 0.1 K/cumm [facility] Lymphocyte abs 0.7(L) 0.8 - 3.3 K/cumm [facility] Monocyte abs 0.9(H) 0.2 - 0.8 K/cumm [facility] Eosinophil abs 0.0 0.0 - 0.5 K/cumm [facility] Basophil abs 0.0 0.0 - 0.1 K/cumm [facility] Neutrophil pct 79.1 % [facility] Comment: Interpretive Data Percent cell count reference ranges are not reported, since discordance with absolute values may lead to misinterpretation of CBC data. Current Interpretive Data was last revised on 2018. Imm gran pct 0.5 % [facility] Comment: Interpretive Data Percent cell count reference ranges are not reported, since discordance with absolute values may lead to misinterpretation of CBC data. Current Interpretive Data was last revised on 2018. Lymphocyte pct 8.4 % [facility] Comment: Interpretive Data Percent cell count reference ranges are not reported, since discordance with absolute values may lead to misinterpretation of CBC data. Current Interpretive Data was last revised on 2018. Monocyte pct 11.4 % [facility] Comment: Interpretive Data Percent cell count reference ranges are not reported, since discordance with absolute values may lead to misinterpretation of CBC data. Current Interpretive Data was last revised on 2018. Eosinophil pct 0.4 % [facility] Comment: Interpretive Data Percent cell count reference ranges are not reported, since discordance with absolute values may lead to misinterpretation of CBC data. Current Interpretive Data was last revised on 2018. Basophil pct 0.2 % [facility] Comment: Interpretive Data Percent cell count reference ranges are not reported, since discordance with absolute values may lead to misinterpretation of CBC data. Current Interpretive Data was last revised on 2018. Blood 10/12/2023 7:50 PM CHEF MANAGER 10/12/2023 8:11 PM CHEF MANAGER us Rafael Cowan MD LAB BLOOD ORDERABLES Fin al Result [facility] [place] [address] * Blood culture Blood (10/12/2023 7:50 PM CHEF MANAGER) Report Final Report: No growth [facility] Blood 10/12/2023 7:50 PM CHEF MANAGER 10/12/2023 8:32 PM CHEF MANAGER Narrative [facility] - 10/17/2023 7:00 AM CHEF MANAGER Collection->Peripheral 1. ?Blood cultures are incubated for [...] organism identification may be performed using the Lamodaigene Gram-Positive Blood Culture Assay. This assay detects microbial DNA in positive blood culture broth via hybridization of target DNA to capture oligonucleotides on a microarray. This assay has been cleared by the [place] Food and Drug Administration and its performance characteristics have been verified by the [facility]. 5. ?For questions about this culture, contact the Microbiology Laboratory at [phone]. Interpretive data was last revised on 2020. us Amol Hargrove MD LAB MICROBIOLOGY - GE NERAL ORDERABLES Final Result Performing Organization Address City/[facility]/ZIP Co de Phone Number [facility] Department [place] [address] * Lactate (10/12/2023 7:50 PM CHEF MANAGER) Pathologist [facility] Lactate 1.1 0.7 - 2.0 mmol/L [facility] Blood 10/12/2023 7:50 PM CHEF MANAGER 10/12/2023 8:23 PM CHEF MANAGER Amol Hargrove MD LAB BLOOD ORDERABLES Final Result Performing Organization Address [facility] Co de Phone Number [facility] Department [place] [address] * (ABNORMAL) Urinalysis reflex to microscopic and culture Urine (10/12/2023 7:50 PM CHEF MANAGER) Pathologist [facility] Color, ur Camilo Yellow [facility] Clarity, ur Turbid(A) Clear [facility] Specific gravity, ur 1.025 1.003 - 1.030 [facility] pH, urine 6.0 [facility] Comment: Interpretive Data ? Urine pH is affected by diet, medications, systemic acid-base disturbances, and renal tubular function. ??pH may affect urinary stone formation. ??For example, urine pH below 6.0 may help reduce the tendency for calcium phosphate stones and pH greater than 6.0 may reduce the tendency for uric acid stone formation. Source: [facility] [employer] Current Interpretive Data was last revised on 2017 Protein, ur ql 3+(A) Negative [facility] Glucose, ur ql Negative Negative [facility] Ketones, ur Negative Negative [facility] Bilirubin, ur Negative Negative [facility] Blood, ur 2+(A) Negative [facility] Urobilinogen, ur >=8.0(A) <2.0 mg/dL [facility] Nitrite, ur Negative Negative [facility] Leukocyte esterase, ur 3+(A) Negative [facility] UA reflex comment Reflex to microscopic UA will be performed. [facility] Urine 10/12/2023 7:50 PM CHEF MANAGER 10/12/2023 8:11 PM CHEF MANAGER Rafael Cowan MD LAB MICROBIOLOGY - GENER AL ORDERABLES Final Result [facility] [place] [address] * (ABNORMAL) CBC with auto differential (10/12/2023 7:50 PM CHEF MANAGER) [facility] WBC 8.1 3.8 - 9.9 K/cumm [facility] Hgb 13.7 13.0 - 17.5 g/dL [facility] Comment: Interpretive Data A reference range for this assay has not been established for patients with an unknown legal sex. Please refer to the laboratory test catalog for established sex-specific reference intervals. Current interpretive data was last revised on 2023. Hct 38.5(L) 38.9 - 50.3 % [facility] Comment: Interpretive Data A reference range for this assay has not been established for patients with an unknown legal sex. Please refer to the laboratory test catalog for established sex-specific reference intervals. Current interpretive data was last revised on 2023. Plt 155 150 - 400 K/cumm [facility] MPV 11.3 9.1 - 12.3 fL [facility] RBC 4.15(L) 4.30 - 5.80 M/cumm [facility] Comment: Interpretive Data A reference range for this assay has not been established for patients with an unknown legal sex. Please refer to the laboratory test catalog for established sex-specific reference intervals. Current interpretive data was last revised on 2023. MCV 92.8 81.3 - 96.4 fL [facility] MCH 33.0 27.1 - 33.3 pg [facility] MCHC 35.6 32.3 - 35.7 g/dL [facility] RDW CV 12.7 11.1 - 14.9 % [facility] RDW SD 43.3 35.7 - 48.1 fL [facility] NRBC abs 0.00 0.00 - 0.01 K/cumm [facility] Blood 10/12/2023 7:50 PM CHEF MANAGER 10/12/2023 8:11 PM CHEF MANAGER Rafael Cowan MD LAB BLOOD ORDERABLES Fin al Result Performing Organization Address [facility]/ZIP Co de Phone Number [facility] [place] [address] * (ABNORMAL) Basic metabolic panel (10/12/2023 7:50 PM CHEF MANAGER) [facility] Sodium 133(L) 135 - 145 mmol/L [facility] Potassium, pl 3.8 3.3 - 4.9 mmol/L [facility] Chloride 97 97 - 110 mmol/L [facility] CO2 27 22 - 32 mmol/L [facility] Anion gap 9 2 - 15 mmol/L [facility] BUN 22 6 - 25 mg/dL [facility] Creatinine 0.99 0.80 - 1.30 mg/dL [facility] Glucose 166 70 - 199 mg/dL [facility] Comment: Interpretive Data Fasting glucose >/= [...] 2022. Calcium 9.1 8.5 - 10.3 mg/dL [facility] Blood 10/12/2023 7:50 PM CHEF MANAGER 10/12/2023 8:11 PM CHEF MANAGER Rafael Cowan MD LAB BLOOD ORDERABLES Fin al Result Performing Organization Address [facility] Co de Phone Number [facility] [place] [employer] [place] [address] documented in this encounter Visit Diagnoses Diagnosis [...] For 1 dose Given 10/12/2023 7:55 PM CHEF MANAGER 1,000 mg acetaminophen (TYLENOL) tablet 1,000 mg 1,000 mg, oral, Every 6 hours scheduled, First dose on Sun10/24/23 at 1200, For 18 doses Given 10/28/2023 6:11 PM CHEF MANAGER 1,000 mg Given 10/28/2023 11:56 AM CHEF MANAGER 1,000 mg Given 10/28/2023 6:18 AM CHEF MANAGER 1,000 mg acetaminophen (TYLENOL) tablet 650 mg 650 mg, oral, Every 4 hours PRN, 1st line for pain, fever, fever greater than 38.3 C, Starting on 10/13/23 at 0453, Indications: Fever, PainIndications:Fever,Pain Given 10/23/2023 10:11 AM CHEF MANAGER 650 mg Given 10/22/2023 4:19 PM CHEF MANAGER 650 mg Given 10/21/2023 6:28 PM CHEF MANAGER 650 mg calcium gluconate 1 g/50 mL in sodium chloride (premix) solution 1 g 1 g, intravenous, Administer over 60 Minutes, Once, On Sun10/24/23 at 2215, For 1 dose, Room temperature only, Indications: hypocalcemiaIndications:hypocalce alan New Bag 10/24/2023 9:52 PM CHEF MANAGER 1 g calcium gluconate 2 g/100 mL in sodium chloride (premix) solution 2 g 2 g, intravenous, Administer over 60 Minutes, Once, On Sun10/24/23 at 0430, For 1 dose, Room temperature only, Indications: hypocalcemiaIndications:hypocalce alan New Bag 10/24/2023 4:51 AM CHEF MANAGER 2 g ceFAZolin (ANCEF) 100 mg/mL sterile water 2,000 mg 2,000 mg, intravenous, at 400 mL/hr, Administer over 3 Minutes, Every 8 hours scheduled, First dose on Sun10/28/23 at 1045, Indications: Blood Stream/Endovascular InfectionIndications:Blood Stream/Endovascular Infection Given 10/30/2023 5:19 AM CHEF MANAGER 2,000 mg 4 00 mL/hr Given 10/29/2023 9:36 PM CHEF MANAGER 2,000 mg 400 mL/hr Given 10/29/2023 1:59 PM CHEF MANAGER 2,000 mg 400 mL/hr ceFAZolin (ANCEF) 2,000 mg/20 mL in sterile water (premix) 2,000 mg 2,000 mg, intravenous, at 400 mL/hr, Administer over 3 Minutes, Every 8 hours scheduled, First dose on Sun10/24/23 at 0500, For 9 doses, Start 1st dose 8 hours after last intra- op dose, Indications: Prophylaxis, Surgical, Urinary Tract/Genitourinary InfectionIndications:Prophylaxis, Surgical,Urinary Tract/Genitourinary Infection Given 10/26/2023 10:22 PM CHEF MANAGER 2,000 mg 400 mL/hr Given 10/26/2023 2:37 PM CHEF MANAGER 2,000 mg 400 mL/hr Given 10/26/2023 5:22 AM CHEF MANAGER 2,000 mg 400 mL/hr cefTRIAXone (ROCEPHIN) 2,000 mg/20 mL in sterile water (premix) 2,000 mg 2,000 mg, intravenous, at 1,200 mL/hr, Administer over 1 Minutes, Once, On Sun10/12/23 at 1846, For 1 dose, Indications: Urinary Tract/Genitourinary InfectionIndications:Urinary Tract/Genitourinary Infection Given 10/12/2023 7:55 PM CHEF MANAGER 2,000 mg 1 200 mL/hr cefTRIAXone (ROCEPHIN) 2,000 mg/20 mL in sterile water (premix) 2,000 mg 2,000 mg, intravenous, at 1,200 mL/hr, Administer over 1 Minutes, Every 24 hours scheduled, First dose on Sun10/13/23 at 0900, Indications: Urinary Tract/Genitourinary InfectionIndications:Urinary Tract/Genitourinary Infection Given 10/19/2023 8:07 AM CHEF MANAGER 2,000 mg 1 200 mL/hr Given 10/17/2023 8:36 AM CHEF MANAGER 2,000 mg 1200 mL/hr Given 10/16/2023 8:09 AM CHEF MANAGER 2,000 mg 1200 mL/hr cephalexin (KEFLEX) capsule 500 mg 500 mg, oral, 4 times daily, First dose on Sun10/19/23 at 1200, Indications: Urinary Tract/Genitourinary InfectionIndications:Urinary Tract/Genitourinary Infection Given 10/23/2023 9:41 AM CHEF MANAGER 500 mg Given 10/22/2023 9:27 PM CHEF MANAGER 500 mg Given 10/22/2023 4:19 PM CHEF MANAGER 500 mg cyclobenzaprine (FLEXERIL) tablet 5 mg 5 mg, oral, 3 times daily PRN, muscle spasms, Starting on [place] 10/25/23 at 0806 Given 10/29/2023 4:49 AM CHEF MANAGER 5 mg Given 10/27/2023 9:14 AM CHEF MANAGER 5 mg Given 10/25/2023 2:34 PM CHEF MANAGER 5 mg dextrose 5% and Lactated Ringer's infusion 25 mL/hr, intravenous, Continuous, Starting on Tu10/23/23 at 2330 Rate/Dose Verify 10/24/2023 12:14 AM CHEF MANAGER 25 mL/hr 25 mL/hr New Bag 10/24/2023 12:02 AM CHEF MANAGER 25 mL/hr 25 mL/hr diazePAM (VALIUM) tablet 5 mg 5 mg, oral, Once as needed, muscle spasms, Starting on Sun10/12/23 at 2146, For 1 dose Given 10/12/2023 9:56 PM CHEF MANAGER 5 mg dilTIAZem XR (CARDIZEM CD,DILACOR XR) 24 hour capsule 240 mg 240 mg, oral, 2 times daily, First dose on Sun10/15/23 at 0945, Do not crush, chew, cut, dissolve, open or otherwise manipulate tablet/capsule., Indications: hypertension, On hold since Sun10/23/2023 at 2304 until manually unheldIndications:hypertension Given 10/23/2023 9:41 AM CHEF MANAGER 240 mg Given 10/22/2023 9:28 PM CHEF MANAGER 240 mg Given 10/22/2023 9:01 AM CHEF MANAGER 240 mg dilTIAZem XR (CARDIZEM CD,DILACOR XR) 24 hour capsule 240 mg 240 mg, oral, Daily, First dose on Sun10/30/23 at 0900, Do not crush, chew, cut, dissolve, open or otherwise manipulate tablet/capsule. Given 10/30/2023 9:56 AM CHEF MANAGER 240 mg diphenhydrAMINE (BENADRYL) tab/cap 25 mg 25 mg, oral, Once, On 10/27/23 at 1700, For 1 dose Given 10/27/2023 4:49 PM CHEF MANAGER 25 mg diphenhydrAMINE (BENADRYL) tab/cap 25 mg 25 mg, oral, 4 times daily PRN, itching, Starting on 10/28/23 at 0113 Given 10/28/2023 9:20 AM CHEF MANAGER 25 mg Given 10/28/2023 1:19 AM CHEF MANAGER 25 mg diphenhydrAMINE-zinc acetate 2-0.1 % cream topical, Daily PRN, itching, Starting on 10/27/23 at 0913, Apply to affected area: IV access site, Indications: Pruritus of SkinIndications:Pruritus of Skin Given 10/27/2023 9:15 PM CHEF MANAGER Given 10/27/2023 1:11 PM CHEF MANAGER enoxaparin (LOVENOX) syringe 80 mg 80 mg (rounded from 88.6 mg = 1 mg/kg ? 88.6 kg), subcutaneous, Every 12 hours scheduled, First dose (after last modification) on Sun10/26/23 at 1815, Indications: Pulmonary EmbolismIndications:Pulmonary Embolism Given 10/30/2023 9:56 AM CHEF MANAGER 80 mg Right Upper Abdomen Given 10/29/2023 9:34 PM CHEF MANAGER 80 mg Ri ght Upper Abdomen Given 10/29/2023 9:31 AM CHEF MANAGER 80 mg Le ft Upper Abdomen EPINEPHrine syringe (ADRENALIN) 0.1 mg/mL Code/trauma/sedation medication, Starting on 10/23/23 at 2141 Given 10/23/2023 9:41 PM CHEF MANAGER 1 mg fentaNYL (SUBLIMAZE) preservative free injection intravenous, As needed, Starting on 10/13/23 at 0901, Intra-Op Given 10/13/2023 9:01 AM CHEF MANAGER 50 mcg fentaNYL (SUBLIMAZE) preservative free injection intravenous, As needed, Starting on 10/13/23 at 0914, Intra-Op Given 10/13/2023 9:14 AM CHEF MANAGER 25 mcg fentaNYL (SUBLIMAZE) preservative free injection intravenous, As needed, Starting on 10/13/23 at 0925, Intra-Op Given 10/13/2023 9:25 AM CHEF MANAGER 25 mcg fentaNYL (SUBLIMAZE) preservative free injection intravenous, As needed, Starting on 10/13/23 at 0936, Intra-Op Given 10/13/2023 9:36 AM CHEF MANAGER 50 mcg fentaNYL (SUBLIMAZE) preservative free injection intravenous, As needed, Starting on 10/14/23 at 1307, Intra-Op Given 10/14/2023 1:07 PM CHEF MANAGER 50 mcg fentaNYL (SUBLIMAZE) preservative free injection intravenous, As needed, Starting on [place] 10/14/23 at 1312, Intra-Op Given 10/14/2023 1:12 PM CHEF MANAGER 50 mcg gabapentin (NEURONTIN) capsule 300 mg 300 mg, oral, Once, On Sun10/23/23 at 1300, For 1 dose, Pre-Op, Indications: PainIndications:Pain Given 10/23/2023 12:41 PM CHEF MANAGER 300 mg gabapentin (NEURONTIN) capsule 300 mg 300 mg, oral, Every 8 hours scheduled, First dose on Sun10/23/23 at 2345, Indications: PainIndications:Pain Given 10/30/2023 3:39 PM CHEF MANAGER 300 mg Given 10/30/2023 5:19 AM CHEF MANAGER 300 mg Given 10/29/2023 9:34 PM CHEF MANAGER 300 mg gadoterate meglumine injection 16 mL 16 mL, intravenous, Once in imaging, contrast, Starting on 10/12/23 at 2332, For 1 dose Contrast Given 10/12/2023 11:32 PM CHEF MANAGER 16 mL gadoterate meglumine injection 18 mL 18 mL, intravenous, Once in imaging, contrast, Starting on [place] 10/25/23 at 1338, For 1 dose Contrast Given 10/25/2023 1:39 PM CHEF MANAGER 18 mL gentamicin (GARAMYCIN) 350 mg in sodium chloride 0.9% 35 mL (10 mg/mL) syringe 350 mg, intravenous, Administer over 30 Minutes, Once, On 10/13/23 at 1130, For 1 dose, Indications: Abdominal/Pelvic Infection, Urinary Tract/Genitourinary InfectionIndications:Abdomi nal/Pelvic Infection,Urinary Tract/Genitourinary Infection New Bag 10/13/2023 12:23 PM CHEF MANAGER 350 mg heparin in 0.9% sodium chloride [...] s Thrombosis Rate/Dose Change 10/26/2023 12:28 PM CHEF MANAGER 25.1 Units/kg/hr 22.4 mL/hr New Bag 10/26/2023 11:37 AM CHEF MANAGER 25.1 Units/kg/hr 22.4 m L/hr Rate/Dose Change 10/26/2023 3:05 AM CHEF MANAGER 25.1 Units/kg/hr 2 2.4 mL/hr HYDROmorphone (DILAUDID) injection 0.2 mg 0.2 mg, intravenous, Administer over 2 Minutes, Every 4 hours PRN, 2nd line for pain, Starting on 10/13/23 at 1437 Given 10/14/2023 9:02 AM CHEF MANAGER 0.2 mg Given 10/14/2023 3:20 AM CHEF MANAGER 0.2 mg HYDROmorphone (DILAUDID) injection 0.2 mg 0.2 mg, intravenous, Administer over 2 Minutes, Every 4 hours PRN, 3rd line for pain, Starting on 10/14/23 at 1420 Given 10/17/2023 10:53 AM CHEF MANAGER 0.2 mg Given 10/16/2023 10:15 PM CHEF MANAGER 0.2 mg Given 10/16/2023 11:37 AM CHEF MANAGER 0.2 mg HYDROmorphone (DILAUDID) injection 0.2 mg 0.2 mg, intravenous, Administer over 2 Minutes, Every 4 hours PRN, breakthrough pain, Starting on 10/17/23 at 1055 Given 10/21/2023 6:27 PM CHEF MANAGER 0.2 m g HYDROmorphone (DILAUDID) injection 0.2 mg 0.2 mg, intravenous, Administer over 2 Minutes, Every 2 hours PRN, 2nd line for pain, Starting on Sun10/23/23 at 2247, Indications: PainIndications:Pain Given 10/24/2023 9:51 PM CHEF MANAGER 0.2 mg Given 10/24/2023 7:42 PM CHEF MANAGER 0.2 mg Given 10/24/2023 5:23 PM CHEF MANAGER 0.2 mg HYDROmorphone (DILAUDID) injection 0.5 mg 0.5 mg, intravenous, Administer over 2 Minutes, Every 2 hours PRN, 2nd line for pain, Starting on Sun10/24/23 at 2245, Indications: PainIndications:Pain Given 10/26/2023 6:35 PM CHEF MANAGER 0.5 mg Given 10/25/2023 11:36 AM CHEF MANAGER 0.5 mg Given 10/25/2023 8:41 AM CHEF MANAGER 0.5 mg hydrOXYzine (ATARAX) tablet 25 mg 25 mg, oral, 2 times daily PRN, anxiety, Starting on 10/14/23 at 1417 Given 10/22/2023 9:28 PM CHEF MANAGER 25 mg Given 10/18/2023 4:46 PM CHEF MANAGER 25 mg Given 10/17/2023 5:19 AM CHEF MANAGER 25 mg insulin lispro (HumaLOG, ADMELOG) 100 [...] Diabetes MellitusIndications:Diabetes Mellitus Given 10/24/2023 4:51 AM CHEF MANAGER 2 Units Right Upper Abdomen insulin lispro [...] Diabetes MellitusIndications:Diabetes Mellitus Given 10/24/2023 12:49 AM CHEF MANAGER 3 Units Left Lower Abdomen insulin lispro [...] Diabetes MellitusIndications:Diabetes Mellitus Given 10/25/2023 12:46 PM CHEF MANAGER 3 Units Left Forearm Given 10/25/2023 12:12 AM CHEF MANAGER 2 Units L eft Upper Arm ioversoL (OPTIRAY 350) injection As needed, Starting on Sun10/13/23 at 0941, Intra-Op Given 10/13/2023 9:41 AM CHEF MANAGER 25 mL ioversoL (OPTIRAY 350) syringe 100 mL 100 mL, intravenous, Once in imaging, contrast, Starting on Sun10/12/23 at 2049, For 1 dose Contrast Given 10/12/2023 9:01 PM CHEF MANAGER 69 mL ioversoL (OPTIRAY 350) syringe 125 mL 125 mL, intravenous, Once in imaging, contrast, Starting on Sun10/16/23 at 1201, For 1 dose Contrast Given 10/16/2023 12:36 PM CHEF MANAGER 120 mL ioversoL (OPTIRAY 350) syringe 75 mL 75 mL, intravenous, Once in imaging, contrast, Starting on Sun10/23/23 at 2346, For 1 dose Contrast Given 10/23/2023 11:47 PM CHEF MANAGER 70 mL irbesartan (AVAPRO) tablet 300 mg 300 mg, oral, Daily, First dose on Sun10/30/23 at 0900 Given 10/30/2023 9:56 AM CHEF MANAGER 300 mg ketorolac (TORADOL) 15 mg/mL injection 15 mg 15 mg, intravenous, Once, On Sun10/13/23 at 1100, For 1 dose, For Adult IV push, administer over 15 seconds Given 10/13/2023 10:35 AM CHEF MANAGER 15 mg ketorolac (TORADOL) 15 mg/mL injection 15 mg 15 mg, intravenous, Every 8 hours PRN, 2nd line for pain, Starting on 10/14/23 at 1420, For 1 day, For Adult IV push, administer over 15 seconds Given 10/15/2023 6:12 AM CHEF MANAGER 15 mg Lactated Ringer's (LR) infusion 150 mL/hr, intravenous, Continuous, Starting on 10/13/23 at 1215, For 6 hours New Bag 10/13/2023 12:23 PM CHEF MANAGER 150 mL/hr 150 mL/hr Lactated Ringer's (LR) infusion 125 mL/hr, intravenous, Continuous, Starting on [place] 10/18/23 at 1215, Phase I New Bag 10/18/2023 11:53 PM CHEF MANAGER 125 mL/hr 125 mL/hr New Bag 10/18/2023 1:16 PM CHEF MANAGER 125 mL/hr 125 mL/hr Lactated Ringer's (LR) infusion 30 mL/hr, intravenous, Continuous, Starting on [place] 10/18/23 at 0915, Pre-Op Restarted 10/18/2023 11:11 AM CHEF MANAGER Rate/Dose Verify 10/18/2023 9:23 AM CHEF MANAGER 30 mL/h r New Bag 10/18/2023 9:09 AM CHEF MANAGER 30 mL/hr 30 mL/hr lactulose 0.67 gram/mL oral solution 20 g 20 g, oral, Every 4 hours, First dose on Sun10/26/23 at 0715, For 3 doses Given 10/26/2023 2:26 PM CHEF MANAGER 20 g Given 10/26/2023 11:10 AM CHEF MANAGER 20 g levETIRAcetam (KEPPRA) 1,000 mg/100 mL in sodium chloride (premix) 1,000 mg 1,000 mg, intravenous, Administer over 15 Minutes, Every 12 hours scheduled, First dose on Sun10/24/23 at 0900, Room temperature only New Bag 10/24/2023 9:36 AM CHEF MANAGER 1,000 mg levETIRAcetam (KEPPRA) 4,500 mg in sodium chloride 0.9% 100 mL IVPB 4,500 mg, intravenous, at 580 mL/hr, Administer over 15 Minutes, Once, On Sun10/23/23 at 2330, For 1 dose, Room temperature only New Bag 10/23/2023 11:04 PM CHEF MANAGER 4,500 mg 580 mL/hr levETIRAcetam (KEPPRA) tablet 1,000 mg 1,000 mg, oral, 2 times daily, First dose on Sun10/24/23 at 2100, May mix with 120 mL of enteral nutrition formula or disperse crushed tablets (500 mg tablet strength studied) in 10 mL of water, shake for 5 minutes to dissolve, and administer immediately via enteral feeding tube Given 10/30/2023 9:56 AM CHEF MANAGER 1,000 mg Given 10/29/2023 9:34 PM CHEF MANAGER 1,000 mg Given 10/29/2023 9:31 AM CHEF MANAGER 1,000 mg lidocaine (LIDODERM) 5 % patch 2 patch 2 patch, transdermal, Administer over 12 Hours, Daily, First dose on Sun10/24/23 at 1130, Do not cover the holes on the top side of the patch., Apply to affected area: chest Medication Applied 10/28/2023 1:26 PM CHEF MANAGER 2 patches Other (Comment) Medication Applied 10/27/2023 1:11 PM CHEF MANAGER 2 patches Back Medication Applied 10/25/2023 11:36 AM CHEF MANAGER 2 patches Back lidocaine PF (XYLOCAINE) 10 mg/mL (1 %) preservative free injection As needed, Starting on 10/13/23 at 0912, Intra-Procedure (IR), Indications: Administration of Local AnesthesiaIndications:Adm inistration of Local Anesthesia Given 10/13/2023 9:12 AM CHEF MANAGER 10 mL Back lidocaine PF (XYLOCAINE) 10 mg/mL (1 %) preservative free injection As needed, Starting on 10/14/23 at 1323, Intra-Procedure (IR), Indications: Administration of Local AnesthesiaIndications:Adm inistration of Local Anesthesia Given 10/14/2023 1:16 PM CHEF MANAGER 10 mL lidocaine PF (XYLOCAINE) 10 mg/mL (1 %) preservative free injection As needed, Starting on 10/14/23 at 1323, Intra-Procedure (IR), Indications: Administration of Local AnesthesiaIndications:Adm inistration of Local Anesthesia Given 10/14/2023 1:23 PM CHEF MANAGER 10 mL lidocaine PF (XYLOCAINE) 10 mg/mL (1 %) preservative free injection As needed, Starting on 10/14/23 at 1324, Intra-Procedure (IR), Indications: Administration of Local AnesthesiaIndications:Adm inistration of Local Anesthesia Given 10/14/2023 1:24 PM CHEF MANAGER 7 mL meperidine (DEMEROL) preservative free injection 12.5 mg 12.5 mg, intravenous, Administer over 5 Minutes, Once, On 10/13/23 at 1115, For 1 dose, Indications: ShiveringIndications:Shiv ering Given 10/13/2023 11:02 AM CHEF MANAGER 12.5 mg midazolam (VERSED) 1 mg/mL injection - ADS Override Pull Starting on 10/23/23 at 2153, For 1 dose, Created by cabinet override midazolam (VERSED) 1 mg/mL injection 2 mg 2 mg, intravenous, Once, On 10/23/23 at 2245, For 1 dose, Phase I & Post-op Floor Given 10/23/2023 10:15 PM CHEF MANAGER 2 mg midazolam (VERSED) 1 mg/mL injection As needed, Starting on 10/13/23 at 0901, Intra-Op Given 10/13/2023 9:01 AM CHEF MANAGER 1 mg midazolam (VERSED) 1 mg/mL injection As needed, Starting on 10/13/23 at 0914, Intra-Op Given 10/13/2023 9:14 AM CHEF MANAGER 0.5 mg midazolam (VERSED) 1 mg/mL injection As needed, Starting on 10/13/23 at 0925, Intra-Op Given 10/13/2023 9:25 AM CHEF MANAGER 0.5 mg midazolam (VERSED) 1 mg/mL injection As needed, Starting on 10/14/23 at 1307, Intra-Op Given 10/14/2023 1:07 PM CHEF MANAGER 1 mg midazolam (VERSED) 1 mg/mL injection As needed, Starting on 10/14/23 at 1312, Intra-Op Given 10/14/2023 1:12 PM CHEF MANAGER 1 mg norepinephrine in dextrose 5% (LEVOPHED) [...] mmHg, Routine Rate/Dose Change 10/23/2023 10:15 PM CHEF MANAGER 0.1 mcg/kg/min 16.74 mL/hr New Bag 10/23/2023 10:14 PM CHEF MANAGER 0.05 mcg/kg/min 8.37 mL /hr norepinephrine in [...] RoutineIndications:hypotensi on New Bag 10/24/2023 12:02 AM CHEF MANAGER 0.06 mcg/kg/min 10.05 mL/hr Rate/Dose Verify 10/24/2023 12:00 AM CHEF MANAGER 0.06 mcg/kg/min 1 0.05 mL/hr Rate/Dose Verify 10/23/2023 11:00 PM CHEF MANAGER 0.06 mcg/kg/min 1 0.05 mL/hr ondansetron (ZOFRAN) injection 4 mg 4 mg, intravenous, Administer over 2 Minutes, Every 6 hours PRN, nausea, vomiting, if not tolerating PO, Starting on 10/13/23 at 0453, Indications: Nausea and VomitingIndications:Nausea and Vomiting Given 10/14/2023 3:26 AM CHEF MANAGER 4 mg Given 10/13/2023 11:20 AM CHEF MANAGER 4 mg ondansetron (ZOFRAN) injection 4 mg 4 mg, intravenous, Administer over 2 Minutes, Every 6 hours PRN, nausea, vomiting, Starting on Sun10/23/23 at 2248, Indications: nausea and vomitingIndications:nausea and vomiting ondansetron ODT (ZOFRAN-ODT) disintegrating tablet 4 mg 4 mg, oral, Every 6 hours PRN, nausea, vomiting, Starting on Sun10/13/23 at 0453, Indications: Nausea and VomitingIndications:Nausea and Vomiting Given 10/16/2023 10:19 AM CHEF MANAGER 4 m g oxyCODONE (ROXICODONE) tablet 10 mg 10 mg, oral, Every 4 hours PRN, 1st line for pain, Starting on Sun10/24/23 at 2245, Indications: PainIndications:Pain Given 10/27/2023 9:10 PM CHEF MANAGER 10 mg Given 10/27/2023 9:14 AM CHEF MANAGER 10 mg Given 10/27/2023 5:39 AM CHEF MANAGER 10 mg oxyCODONE (ROXICODONE) tablet 5 mg 5 mg, oral, Every 4 hours PRN, 2nd line for pain, Starting on Sun10/17/23 at 1054, Indications: PainIndications:Pain Given 10/23/2023 6:20 AM CHEF MANAGER 5 mg Given 10/22/2023 9:28 PM CHEF MANAGER 5 mg Given 10/22/2023 3:56 AM CHEF MANAGER 5 mg oxyCODONE (ROXICODONE) tablet 5 mg 5 mg, oral, Every 4 hours PRN, 1st line for pain, Starting on Sun10/23/23 at 2301, Indications: PainIndications:Pain Given 10/24/2023 9:03 PM CHEF MANAGER 5 mg Given 10/24/2023 4:52 PM CHEF MANAGER 5 mg Given 10/24/2023 10:20 AM CHEF MANAGER 5 mg oxyCODONE (ROXICODONE) tablet 5 mg 5 mg, oral, Every 4 hours PRN, 1st line for pain, Starting on Sun10/30/23 at 0631, Indications: PainIndications:Pain pantoprazole DR (PROTONIX) extended release tablet 40 mg 40 mg, oral, Daily, First dose on Sun10/13/23 at 0900, Do not crush, chew, cut, dissolve, open or otherwise manipulate tablet/capsule., Indications: Mucositis ProphylaxisIndications:Mucositis Prophylaxis Given 10/23/2023 9:41 AM CHEF MANAGER 40 mg Given 10/22/2023 9:01 AM CHEF MANAGER 40 mg Given 10/21/2023 8:56 AM CHEF MANAGER [address] (PROTONIX) extended release tablet 40 mg 40 mg, oral, Daily, First dose on Sun10/24/23 at 1130, Do not crush, chew, cut, dissolve, open or otherwise manipulate tablet/capsule., Indications: Treatment of Non-Bleeding Gastric Disorder, home medIndications:Treatment of Non-Bleeding Gastric Disorder,home med Given 10/30/2023 9:56 AM CHEF MANAGER 40 mg Given 10/29/2023 9:31 AM CHEF MANAGER 40 mg Given 10/28/2023 9:17 AM CHEF MANAGER 40 mg perflutren protein-a (OPTISON) 0.22 mg/mL injection - ADS Override Pull Starting on Sun10/24/23 at 1116, For 1 dose, Created by cabinet override Given by Other 10/24/2023 11:43 AM CHEF MANAGER phenylephrine (ARIELLE-SYNEPHRINE) 1 mg/10 mL (100 mcg/mL) in sodium chloride 0.9% (premix) 16 mcg 16 mcg, intravenous, Once, On Sun10/23/23 at 2245, For 1 dose, Phase I & Post-op Floor, For IV push, administer over 30 seconds. Given 10/23/2023 10:15 PM CHEF MANAGER 16 mcg polyethylene glycol (MIRALAX) packet 17 g 17 g, oral, Daily, First dose on Sun10/16/23 at 0900, Indications: constipationIndications:constipatio n Given 10/22/2023 9:01 AM CHEF MANAGER 17 g Given 10/21/2023 8:57 AM CHEF MANAGER 17 g Given 10/20/2023 8:18 AM CHEF MANAGER 17 g polyethylene glycol (MIRALAX) packet 17 g 17 g, oral, Once, On Sun10/16/23 at 2100, For 1 dose, Indications: constipationIndications:constipation Given 10/16/2023 9:23 PM CHEF MANAGER 17 g polyethylene glycol (MIRALAX) packet 17 g 17 g, oral, Daily, First dose on Sun10/26/23 at 0900, Indications: constipationIndications:constipation Given 10/26/2023 9:35 AM CHEF MANAGER 17 g polyethylene glycol (MIRALAX) packet 17 g 17 g, oral, 2 times daily, First dose (after last modification) on Sun10/26/23 at 2100, Indications: constipationIndications:constipation Given 10/28/2023 9:16 AM CHEF MANAGER 17 g Given 10/27/2023 9:13 AM CHEF MANAGER 17 g potassium chloride (KLOR-CON) packet 40 mEq 40 mEq, feeding tube, Once, On Sun10/24/23 at 2145, For 1 dose, Dissolve one packet in at least 120 mL of cold water or other beverage prior to administration. Given 10/24/2023 9:13 PM CHEF MANAGER 40 mEq potassium chloride ER (KLOR-CON) extended release tablet 40 mEq 40 mEq, oral, Once, On [place] 10/25/23 at 2345, For 1 dose, Tablets should not be crushed, chewed, dissolved, or otherwise manipulated. Capsules may be opened and sprinkled on a spoonful of applesauce or pudding, but the contents of the capsule should not be crushed or chewed. Given 10/26/2023 12:36 AM CHEF MANAGER 40 mEq ramelteon (ROZEREM) tablet 8 mg 8 mg, oral, Nightly PRN, sleep, Starting on 10/13/23 at 2146, Indications: Sleep-Onset InsomniaIndications:Sleep-Onset Insomnia Given 10/22/2023 9:28 PM CHEF MANAGER 8 mg Given 10/21/2023 9:48 PM CHEF MANAGER 8 mg Given 10/20/2023 9:30 PM CHEF MANAGER 8 mg ramelteon (ROZEREM) tablet 8 mg 8 mg, oral, Nightly PRN, sleep, Starting on 10/28/23 at 2033, Indications: Sleep-Onset InsomniaIndications:Sleep-Onset Insomnia Given 10/29/2023 10:55 PM CHEF MANAGER 8 mg Given 10/28/2023 9:31 PM CHEF MANAGER 8 mg senna-docusate (PERICOLACE) 8.6-50 mg per tablet 2 tablet 2 tablet, oral, 2 times daily, First dose on Sun10/23/23 at 2345, Hold for diarrhea., Indications: constipationIndications:constipation Given 10/28/2023 9:16 AM CHEF MANAGER 2 table ts Given 10/27/2023 9:14 AM CHEF MANAGER 2 tablets Given 10/26/2023 9:35 AM CHEF MANAGER 2 tablets sodium bicarbonate 8.4 % (1 mEq/mL) injection 50 mEq 50 mEq, intravenous, Administer over 5 Minutes, Once, On [facility] 10/23/23 at 2245, For 1 dose, Phase I & Post-op Floor Given 10/23/2023 10:15 PM CHEF MANAGER 50 mEq sodium chloride 0.9% bolus 1,000 mL 1,000 mL, intravenous, Once, On [facility] 10/23/23 at 2330, For 1 dose New Bag 10/24/2023 12:16 AM CHEF MANAGER 1,000 mL sodium chloride 0.9% bolus from bag 1,000 mL 1,000 mL, intravenous, at 250 mL/hr, Administer over 4 Hours, Once, On [place] 10/14/23 at 0300, For 1 dose Bolus from Bag 10/14/2023 3:06 AM CHEF MANAGER 1,000 mL 250 mL/hr sodium chloride 0.9% bolus from bag 500 mL 500 mL, intravenous, Once, On [facility] 10/13/23 at 1100, For 1 dose Bolus from Bag 10/13/2023 10:33 AM CHEF MANAGER 500 mL 999 mL/hr sodium chloride 0.9% flush 0.5-20 mL 0.5-20 mL, intra-catheter, Every 8 hours scheduled, First dose on [facility] 10/13/23 at 0930, Pre-Procedure (IR), Flush volume based on line type and size. Given 10/23/2023 6:21 AM CHEF MANAGER 10 mL Given 10/22/2023 9:31 PM CHEF MANAGER 10 mL Given 10/22/2023 4:19 PM CHEF MANAGER 10 mL sodium chloride 0.9% flush 0.5-20 mL 0.5-20 mL, intra-catheter, Every 8 hours scheduled, First dose on [place] 10/14/23 at 1400, Pre-Procedure (IR), Flush volume based on line type and size. Given 10/23/2023 6:21 AM CHEF MANAGER 10 mL Given 10/22/2023 9:34 PM CHEF MANAGER 10 mL Given 10/22/2023 4:19 PM CHEF MANAGER 10 mL sodium chloride 0.9% flush 0.5-20 mL 0.5-20 mL, intra-catheter, Every 8 hours scheduled, First dose on Tu10/23/23 at 2345, Flush volume based on line type and size. , Indications: FlushingIndications:Flushing Given 10/30/2023 5:20 AM CHEF MANAGER 10 mL Given 10/29/2023 9:35 PM CHEF MANAGER 10 mL Given 10/29/2023 2:00 PM CHEF MANAGER 10 mL sodium chloride 0.9% flush 0.5-20 mL 0.5-20 mL, intra-catheter, Every 8 hours scheduled, First dose on Sun10/23/23 at 2330, Flush volume based on line type and size. Given 10/30/2023 5:20 AM CHEF MANAGER 10 mL Given 10/29/2023 9:35 PM CHEF MANAGER 10 mL Given 10/29/2023 2:01 PM CHEF MANAGER 10 mL sodium chloride 0.9% infusion 30 mL/hr, intravenous, Continuous, Starting on 10/13/23 at 0115 New Bag 10/13/2023 12:55 AM CHEF MANAGER 30 mL/hr 30 mL/hr sodium chloride 0.9% infusion 100 mL/hr, intravenous, Continuous, Starting on Sun10/13/23 at 0530 New Bag 10/13/2023 6:47 AM CHEF MANAGER 100 mL/hr 100 mL/hr sodium chloride 0.9% infusion 75 mL/hr, intravenous, Continuous, Starting on Sun10/14/23 at 0700, For 12 hours New Bag 10/14/2023 9:02 AM CHEF MANAGER 75 mL/hr 75 mL/hr sodium chloride 0.9% infusion 3 mL/hr, intravenous, Continuous, Starting on Sun10/24/23 at 0230, Through left radial arterial line Rate/Dose Verify 10/24/2023 7:00 PM CHEF MANAGER 3 mL/hr 3 mL/hr Rate/Dose Verify 10/24/2023 6:00 PM CHEF MANAGER 3 mL/hr 3 mL/hr Rate/Dose Verify 10/24/2023 5:00 PM CHEF MANAGER 3 mL/hr 3 mL/hr sodium chloride 0.9% IVPB 0-250 mL 0-250 mL, intravenous, Once, On Sun10/26/23 at 0345, For 1 dose, Prime blood tubing and administer amount needed to clear line (usually 50-100 mL) after transfusion complete. New Bag 10/26/2023 3:43 AM CHEF MANAGER 250 mL tamsulosin (FLOMAX) extended release capsule 0.8 mg 0.8 mg, oral, Daily with dinner, First dose on Sun10/13/23 at 1800, Do not crush, chew, cut, dissolve, open or otherwise manipulate tablet/capsule., On hold since Sun10/23/2023 at 2304 until manually unheld Given 10/22/2023 6:32 PM CHEF MANAGER 0.8 mg Given 10/21/2023 5:13 PM CHEF MANAGER 0.8 mg Given 10/20/2023 5:35 PM CHEF MANAGER 0.8 mg tamsulosin (FLOMAX) extended release capsule 0.8 mg 0.8 mg, oral, Daily with dinner, First dose on Sun10/24/23 at 1800, Do not crush, chew, cut, dissolve, open or otherwise manipulate tablet/capsule. Given 10/29/2023 6:50 PM CHEF MANAGER 0.8 mg Given 10/28/2023 6:11 PM CHEF MANAGER 0.8 mg Given 10/27/2023 4:49 PM CHEF MANAGER 0.8 mg vancomycin 1500 mg/515 mL in sodium chloride 0.9% (premix) 1,500 mg 1,500 mg, intravenous, Administer over 90 Minutes, Every 12 hours, First dose on Sun10/24/23 at 1230, For 2 doses, Start 1st dose 12 hours after last intra-op dose , Indications: Prophylaxis, SurgicalIndications:Prophylaxis, Surgical New Bag 10/24/2023 11:11 PM CHEF MANAGER 1,500 mg New Bag 10/24/2023 11:45 AM CHEF MANAGER 1,500 mg vancomycin 1500 mg/515 mL in sodium chloride 0.9% (premix) 1,500 mg 1,500 mg, intravenous, Administer over 90 Minutes, Once, On Sun10/23/23 at 2345, For 1 dose, Pre-Op, Administer within 120 minutes of incision., Indications: Prophylaxis, SurgicalIndications:Prophylaxis, Surgical New Bag 10/24/2023 12:54 AM CHEF MANAGER 1,500 mg vancomycin 1500 mg/515 mL in sodium chloride 0.9% (premix) 1,500 mg 1,500 mg, intravenous, Administer over 90 Minutes, Every 12 hours, First dose on Sun10/28/23 at 1015, Indications: Bone/Joint Infection, Prophylaxis, SurgicalIndications:Bone/Joint Infection,Prophylaxis, Surgical New Bag 10/29/2023 9:36 PM CHEF MANAGER 1,500 mg New Bag 10/29/2023 11:33 AM CHEF MANAGER 1,500 mg New Bag 10/28/2023 9:33 PM CHEF MANAGER 1,500 mg documented in this encounter Discontinued [...] Recently Administered Medications Times are shown in CHEF MANAGER. Scheduled Medication Order 10/28/2023 10/29/2023 10/30/2023 acetaminophen [...] Lepe, NARENDRA)2132 (Given - Provider: Suzanne Mendoza, ANRENDRA) 0601 (Given - Provider: Suzanne Mendoza RN)1401 [...] Matilda Gonzales RN)213 (Given - Provider: Suzanne Mendoza RN) 0520 [...] [place]) enema 133 mL 1 10/23/2023 multivit cosucolr-mqxp-NH-ca lcium (THERA-M) tablet 1 tablet 1 10/23/2023 [...] 1 10/23/2023 SKIN PREP 1 10/14/2023 VOID NEUROSURGICAL PHYSICIAN ASSISTANT TO OR 1 10/14/2023 ASSESS 1 10/13/2023 [...] 10/12/2023 documented in this encounter Care Teams Professional Application Designer Relationship Specialty Start Date End Date Rl Medina DO [address] [place] [address] PCP - General 08/09/17 05/25/24 Em Witt, RN [address] [address] [facility] Outpatient Hotel Security Officer 10/30/23 10/30/23 documented as of this encounter
--- OUTSIDE RECORDS SUMMARY | 2024-11-05 23:01 | XMS_ITS | Encounter Summary ---
Author Organization [facility] Address [address] [place] [address] Phone Care Team Providers Care Analytics Intern Name Role Phone Rl Medina DO Primary Care Provider Em Witt RN Unavailable [phone] Reason for Referral * MRI/CAT/PET Scan (Routine) - Closed Specialty Diagnoses / Procedures Referred By Manisha t Referred To Contact Radiology Diagnoses SDH (subdural hematoma) (HCC) Procedures CT Head WO Contrast Carrie Jerez NP [address] [place] [address] Phone: tel: fax: [address] [address] Referral ID Status Reason Start Date Expiration Date Visits Re quested Visits Authorized [id number] Closed 10/30/2023 11/28/2024 1 1 RCALENDER OPERATOR HELPER Encounter Details Date Type Department Care Team (Late st Contact Info) Description 10/30/2023 Orders Only [facility] Neurosurgery [facility] Building [address] [place] [id number] Carrie Jerez NP [address] [place] [address] SDH (subdural hematoma) (HCC) (Primary [...] the past 12 months has th e payever, gas, oil, or water [place] [employer] threatened to shut off services in your [...] How often do you attend chur or muslim services? Never 10/31/2023 Do you [...] in a nursing home (including now)? 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 Interval resolution of bilateral subdural collections along the cerebral convexities. 2. ??No new acute intracranial hemorrhage, significant mass effect, or hydrocephalus. Electronically signed by: Francia Schmitz M.D. Narrative 12/24/2023 1:58 PM SUPERCALENDER OPERATOR HELPER EXAMINATION: CT head without contrast HISTORY: Follow-up [...] signed by: Francia Schmitz M.D. Carrie Jerez MEDICAL TRANSPORT SPECIALIST IMG CT PROCEDURES Final Re sult documented in this encounter Visit Diagnoses Diagnosis SDH (subdural hematoma) (HCC)- Primary Subdural hemorrhage SDH (subdural hematoma) (HCC) Subdural hemorrhage documented in this encounter Care Teams Analytics Intern Relationship Specialty Start Date End Date Rl Medina DO [address] [place] [address] PCP - General 08/09/17 05/25/24 Em Witt, RN [address] [facility] [address] [place] [id number] [facility] Outpatient Supervisor Hard Candy 10/30/23 10/30/23 documented as of this encounter
--- OUTSIDE RECORDS SUMMARY | 2024-11-05 23:02 | XMS_ITS | Encounter Summary ---
Author Organization [facility] Address [address] [place] [address] Care Team Providers Care Speed Belt Sander Tender Name Role Phone Rl Medina DO Primary Care Provider [phone] Reason for Visit * Auth/Cert Specialty Diagnoses / Procedures Referred By Contac t Referred To Contact Diagnoses Ureteral colic Procedures na Referral ID Status Reason Start Date Expiration Date Visits Re quested Visits Authorized [id number] 1 1 Encounter Details Date Type Department Care Team (Late st Contact Info) Description 10/23/2023 4:23 PM EQUINE SCIENCE INSTRUCTOR Anesthesia Event [facility] Operating Room [address] [place] [address] Ann Salazar MD [address] [place] [address] Kendrick Partida MD [address] [place] [address] Anesthesia Record Procedure Summary Procedure Name Responsible [...] Luis Ruffin RN Peripheral IV Placement Date: 10/13/23; [...] oz pu re alcohol) social [facility] Utilities Answer Date Recorded In the past 12 months has th [employer], gas, oil, or water [employer] threatened to shut off services in your [...] attend chur ch or adventist services? 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 [Held by Provider] multivit hjwvzoti-hkmz-OF-calcium (THERA-M) tablet 1 tablet, 1 tablet, oral,Daily [...] Medication protocol when under care of a BRAND AMBASSADOR PROMOTIONAL MODEL Planned anesthesia: General TIVA Team communication plan: oral ET tube Induction: Induction: intravenous. Postoperative Plan: Postoperative administration opioids intended. No postoperative mechanical ventilation intended. Patient's planned disposition post procedure is Obs. unit. Planned trial extubation. Informed Consent: Discussed plan with resident, attending and BRAND AMBASSADOR PROMOTIONAL MODEL. Anesthesia plan and risks discussed with patient, spouse and daughter. Consent and Attending signature: I and/or my designee have discussed the anesthesia plan, benefits, possible alternatives, parental presence at time of induction (if indicated), and clinically relevant risks that may include dental injury, unintentional awareness, and/or other complications. The patient and/or parent/legal guardian understand, and agree to proceed. All questions answered. NE SCIENCE INSTRUCTOR * Anesthesia Postprocedure Evaluation - Alice Vaughn MD - 10/23/2023 10:53 PM CST Patient: Hira Evans Procedure Summary Date: 10/23/23 Room / Location: [facility] OR POD 5 ROOM 234 / [facility] OR POD 5 Anesthesia Start: 1623 Anesthesia [...] Level of consciousness: confused, lethargic and arouses electrical parts reconditioner Pain score: unable to evaluate Airway patency: [...] Smith MD PhD at 11/07/2023 4:49 PM EQUINE SCIENCE INSTRUCTOR NE SCIENCE INSTRUCTOR NE SCIENCE INSTRUCTOR * Anesthesia Procedure Notes - Alice Vaughn MD - 10/23/2023 5:18 PM CSTAssociated [...] with: silk tape Number of attempts: 1 NE SCIENCE INSTRUCTOR * Anesthesia Procedure Notes - Louis Myers [...] Kendrick Partida MD at 10/24/2023 10:17 AM EQUINE SCIENCE INSTRUCTOR NE SCIENCE INSTRUCTOR NE SCIENCE INSTRUCTOR * Anesthesia Procedure Notes - Kendrick Partida [...] patient tolerated procedure well with no complications NE SCIENCE INSTRUCTOR NE SCIENCE INSTRUCTOR documented in this encounter Plan of Treatment Not on file documented as of this encounter Procedures Procedure Name Priority Date/Time Associated Diagnosis Comments ANESTHESIA INTUBATION Routine 10/23/2023 5:18 PM EQUINE SCIENCE INSTRUCTOR MA AN PROCEDURE PLACEHOLDER Routine 10/23/2023 2:45 PM EQUINE SCIENCE INSTRUCTOR MA AN PROCEDURE PLACEHOLDER Routine 10/23/2023 2:43 PM EQUINE SCIENCE INSTRUCTOR documented in this encounter Results * Airway (10/23/2023 5:18 PM EQUINE SCIENCE INSTRUCTOR) Narrative Alice Vaughn MD - 10/23/2023 5:18 PM EQUINE SCIENCE INSTRUCTOR Alice Vaughn MD ? 10/23/2023 ??5:18 PM [...] MD ANESTHESIA ORDERABLES Final Resu lt * MA AN PROCEDURE PLACEHOLDER (10/23/2023 2:45 PM EQUINE SCIENCE INSTRUCTOR) Narrative Kendrick Partida MD - 10/23/2023 2:45 PM EQUINE SCIENCE INSTRUCTOR Louis Myers MD ? 10/23/2023 ??2:46 PM [...] MD ANESTHESIA ORDERABLES Final Resu lt * MA AN PROCEDURE PLACEHOLDER (10/23/2023 2:43 PM EQUINE SCIENCE INSTRUCTOR) Narrative Kendrick Partida MD - 10/23/2023 2:43 PM EQUINE SCIENCE INSTRUCTOR Kendrick Partida MD ? 10/24/2023 10:17 AM [...] 1406, Anesthesia Intra-op Given 10/23/2023 2:07 PM EQUINE SCIENCE INSTRUCTOR 20 mL Given 10/23/2023 2:06 PM EQUINE SCIENCE INSTRUCTOR 20 mL ceFAZolin (ANCEF) 2,000 mg/20 mL in sterile water (premix) 2,000 mg 2,000 mg, intravenous, at 400 mL/hr, Administer over 3 Minutes, Once, On Sun10/23/23 at 1300, For 1 dose, Pre-Op, Administer within 60 minutes of incision., Indications: Prophylaxis, SurgicalIndications:Prophylaxis, Surgical Given 10/23/2023 8:50 PM EQUINE SCIENCE INSTRUCTOR 2,000 mg Given 10/23/2023 4:50 PM EQUINE SCIENCE INSTRUCTOR 2,000 mg dexmedeTOMIDine (PRECEDEX) 80 mcg/20 mL (4 mcg/mL) in sodium chloride 0.9% (premix) intravenous, As needed, Starting on Sun10/23/23 at 1725, Anesthesia Intra-op Given 10/23/2023 5:30 PM EQUINE SCIENCE INSTRUCTOR 8 mcg Given 10/23/2023 5:25 PM EQUINE SCIENCE INSTRUCTOR 8 mcg fentaNYL (SUBLIMAZE) preservative free injection intravenous, As needed, Starting on Sun10/23/23 at 1402, Anesthesia Intra-op Given 10/23/2023 9:00 PM EQUINE SCIENCE INSTRUCTOR 100 mc g Given 10/23/2023 8:50 PM EQUINE SCIENCE INSTRUCTOR 100 mcg Given 10/23/2023 2:02 PM EQUINE SCIENCE INSTRUCTOR 100 mcg Lactated Ringer's (LR) infusion 75 mL/hr, intravenous, Continuous, Starting on Sun10/23/23 at 1430, Phase I & Post-op Floor New Bag 10/23/2023 7:32 PM CS T New Bag 10/23/2023 4:26 PM EQUINE SCIENCE INSTRUCTOR lidocaine (cardiac) (XYLOCAINE) preservative free injection intravenous, As needed, Starting on Sun10/23/23 at 1629, Anesthesia Intra-op, Indications: Ventricular ArrhythmiasIndications:Ve ntricular Arrhythmias Given 10/23/2023 4:29 PM EQUINE SCIENCE INSTRUCTOR 100 mg methadone injection syringe intravenous, As needed, Starting on Sun10/23/23 at 1629, Anesthesia Intra-op Given 10/23/2023 4:29 PM EQUINE SCIENCE INSTRUCTOR 10 mg midazolam (VERSED) 2 mg/2 mL preservative free injection intravenous, Administer over 2 Minutes, As needed, Starting on Sun10/23/23 at 1402, Anesthesia Intra-op Given 10/23/2023 2:02 PM EQUINE SCIENCE INSTRUCTOR 1 mg ondansetron (ZOFRAN) injection intravenous, Administer over 2 Minutes, As needed, Starting on Sun10/23/23 at 2050, Anesthesia Intra-op Given 10/23/2023 8:50 PM EQUINE SCIENCE INSTRUCTOR 4 mg propofoL (DIPRIVAN) 10 mg/mL IV intravenous, Continuous PRN, Starting on Sun10/23/23 at 1629, Anesthesia Intra-op Rate/Dose Change 10/23/2023 8:17 PM EQUINE SCIENCE INSTRUCTOR 70 mcg/kg/min 37.506 mL/hr Rate/Dose Change 10/23/2023 8:10 PM EQUINE SCIENCE INSTRUCTOR 80 mcg/kg/min 42.8 64 mL/hr Rate/Dose Change 10/23/2023 6:53 PM EQUINE SCIENCE INSTRUCTOR 95 mcg/kg/min 50.9 01 mL/hr propofoL (DIPRIVAN) 10 mg/mL IV intravenous, As needed, Starting on Sun10/23/23 at 1629, Anesthesia Intra-op Bolus 10/23/2023 9:00 PM EQUINE SCIENCE INSTRUCTOR 20 mg Bolus 10/23/2023 8:50 PM EQUINE SCIENCE INSTRUCTOR 20 mg Bolus 10/23/2023 8:48 PM EQUINE SCIENCE INSTRUCTOR 20 mg rocuronium (ZEMURON) injection intravenous, As needed, Starting on Sun10/23/23 at 1629, Anesthesia Intra-op Given 10/23/2023 4:29 PM EQUINE SCIENCE INSTRUCTOR 10 mg succinylcholine (ANECTINE) injection intravenous, As needed, Starting on Sun10/23/23 at 1629, Anesthesia Intra-op Given 10/23/2023 4:29 PM EQUINE SCIENCE INSTRUCTOR 80 mg tranexamic acid (CYKLOKAPRON) 1,000 mg/100 mL (10 mg/mL) in sodium chloride (premix) intravenous, Administer over 15 Minutes, As needed, Starting on Sun10/23/23 at 1705, Anesthesia Intra-op Rate/Dose Change 10/23/2023 7:30 PM EQUINE SCIENCE INSTRUCTOR 5 mg/kg/hr 44.65 mL/hr New Bag 10/23/2023 5:10 PM EQUINE SCIENCE INSTRUCTOR 3 mg/kg/hr 26.79 mL/hr Given 10/23/2023 5:05 PM EQUINE SCIENCE INSTRUCTOR 1,000 mg vancomycin 1500 mg/515 mL in sodium chloride 0.9% (premix) 1,500 mg 1,500 mg, intravenous, Administer over 90 Minutes, Once, On Tu10/23/23 at 1300, For 1 dose, Pre-Op, Administer within 120 minutes of incision., Indications: Prophylaxis, SurgicalIndications:Prophylaxis, Surgical Given 10/23/2023 4:31 PM EQUINE SCIENCE INSTRUCTOR 1,500 mg documented in this encounter Care Teams Speed Belt Sander Tender Relationship Specialty Start Date End Date Rl Medina DO [address] [place] [address] PCP - General 08/09/17 05/25/24 documented as of this encounter
--- OUTSIDE RECORDS SUMMARY | 2024-11-05 23:02 | XMS_ITS | Encounter Summary ---
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 Name Role Phone Rl Medina DO Primary Care Provider Reason for Visit * Reason Comments Urinary Problem * Auth/Cert Specialty Diagnoses / Procedures Referred By Contac t Referred To Contact Diagnoses Ureteral colic Procedures na Referral ID Status Reason Start Date Expiration Date Visits Re quested Visits Authorized [id number] 1 1 Encounter Details Date Type Department Care Team (Late st Contact Info) Description 10/23/2023 1:30 PM TROUBLE TRACER - 10/23/2023 8:10 PM TROUBLE TRACER Surgery [facility] Operating Room [address] [place] [address] Hayder Vu Jr., MD [address] [facility] [address] [place] [address] FUSION SPINAL - POSTERIOR LUMBAR/THORACIC WITH INSTRUMENTATION: [...] Clean Contaminated Surgeon Surgeon Role Service Panel aHyder Vu Jr., MD Primary Orthopaedic s 1 Nasir Manzanares MD Resident - Assisting Ortho paedics 1 Case Notes 10/22: Cell Saver Audit, case msg to [place] - 0905/No Special Needs OSI- 6 post, [...] Recorded In the past 12 months has [employer], gas, oil, or water [employer]) threatened to shut off services in your [...] week 10/24/2023 How often do you attend up health system or caodaism services? Never 10/24/2023 Do you belong to [...] slept in a snf (including now)? 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 on file Not on file Not on file documented as of this encounter Last Filed Vital Signs Vital Sign Reading Time Taken Comments Blood Pressure 135/73 10/23/2023 3:00 PM TROUBLE TRACER Pulse 60 10/23/2023 3:00 PM TROUBLE TRACER Temperature 36.8 ??C (98.2 ??F) 10/23/2023 7:36 AM CS T Respiratory Rate 19 10/23/2023 3:00 PM TROUBLE TRACER Oxygen Saturation 94% 10/23/2023 3:00 PM TROUBLE TRACER Inhaled Oxygen Concentration - - Weight 89.3 kg (196 lb 13.9 oz) 10/21/2023 4:00 AM TROUBLE TRACER Height 172.7 cm (5' 8 ) 10/13/2023 4:15 AM TROUBLE TRACER Body Mass Index 29.7 10/13/2023 4:15 AM TROUBLE TRACER documented in this encounter Discharge Summaries * Rafael Rodriguez, PRIVATE TUTOR - 10/30/2023 1:19 PM CST Images from the original note were not included. Spine Inpatient Discharge Summary Admitting Provider: Hayder Vu MD Discharge Provider: Hayder Vu Fo* Primary Care Physician at Discharge: Rl Medina DO [phone] Admission Date: 10/12/2023 Discharge Date: 10/30/2023 Primary [...] URO BW MOB4 JORDAN 12/24/2023 2:20 PM [facility] BCT3 BJ N CT [facility] Main IMG 12/24/2023 3:30 PM Carrie [...] 1 tablet (10 mg total) by mouth early intervention school psychologist before breakfast For: inflammation of the nose due to an allergy Commonly known as: ZyrTEC cholecalciferol 5,000 unit capsule Take 1 capsule (5,000 Units total) by mouth every morning For: low vitamin D levels Commonly known as: VITAMIN D-3 coenzyme Q10 100 mg capsule Take 1 capsule (100 mg total) by mouth early intervention school psychologist before breakfast cyclobenzaprine 5 mg tablet Take [...] mg capsule Take 1 tablet by mouth early intervention school psychologist before breakfast For: Supplement gabapentin 300 mg [...] says it's OK. *Do not do any aircraft loadmaster superintendent that cause you to twist, push or [...] to previous diet Contact Information for Follow-ups [facility] (All Locations) Next Steps: Follow up Comments: Please schedule patient for follow up appointment. Section: Epilepsy Provider: First available Time Frame: First available Schedule with Transition of Care Clinic: No Questions: Please select the performing region: [facility] (All Locations) # of visits: 1 Referral Status: Pending Coordinator Review [facility] Home Care Services Specialty: Home Health and Hospice [address] [facility] [address] Next Steps: Follow up Questions: Service Line: [...] Hayder Vu MD at 10/31/2023 3:37 PM TROUBLE TRACER BLE TRACER BLE TRACER BLE TRACER documented in this encounter Discharge Instructions * Discharge Instructions* Rafael Rodriguez NP - 10/30/2023 10:21 AM TROUBLE TRACER Thoracic/Lumbar Spinal Fusion Post-Operative Instructions Questions: ?? For any post-operative questions, please contact Dr. Horace Mojica???s nurse, at [phone] via [email or web address]. Galina will view and respond to your [email or web address] questions sent to Dr. Vu. Wound Care: ?? Please keep your initial surgical dressing (Mepilex + Ioban OR dermabond or Steri-Srips w/ tegaderm & ioban) intact until your postoperative clinic appointment two weeks after surgery. ?? Please contact [place] for further directions, if needed, regarding additional [...] you upon discharge. Please call Galina at [phone] if unable to keep appointment. Nov 09, 2023 11:[address] Rl Medina Post-hospitalization appointment Nov 12, 2023 9:20 AM New with Hayder Vu MD [facility] Orthopaedic Surgery ( ORTHOPEDIC SURGERY) [address] [place] [address] 6th Floor [address] [facility] [id number] Dec 03, 2023 1:20 PM Return with Hayder Vu MD [facility] Orthopaedic Surgery ( ORTHOPEDIC SURGERY) [address] [facility] [address] Dec 13, 2023 1:20 PM Return with Pan Irene MD [facility] Urology (WOOD SURGERY) [address] [facility] [address] [facility] NEUROLOGY FOR FOLLOW UP APPT WITH THE [facility] EPILEPSY DEPARTMENT [phone] Emergencies: SIGNS OF AN EMERGENT SITUATION INCLUDE-If [...] it is best that you return to [facility] for your emergent care. Please call the emergency exchange at [phone] or toll free any time of the day or night on the daysthe office is closed, so that the emergent care can be initiated for you. Please follow these instructions for emergency calls: -During business hours (Sunday through Sunday 8am-4:30 PM except for holidays), call [phone]. The oxygraph operator will connect you with Dr. Vu???s nurse. Dr. Vu???s nurse reports all emergencies to Dr. Vu. -After business hours (after 4:30 PM and before 8:00am) you may call the Emergency Orthopaedic Exchange at [phone] or TOLL [phone]. The oxygraph operator community relations rep will contact Dr. Echeverria???s staff. IMPORTANT: Refills of medications need to be done during business hours-NO pain medication refills will be given over the phone after hours. Please call with any questions or concerns. We will be glad to assist you in any way during your recovery period. Dr. Vu???s Staff Galina Franco RN: [phone] BLE TRACER BLE TRACER BLE TRACER BLE TRACER BLE TRACER BLE TRACER documented in this encounter Medications at Time [...] 1 tablet (10 mg total) by mouth early intervention school psychologist before breakfast 4 cholecalciferol (VITAMIN D-3) 5,000 unit capsuleIndication s:Vitamin D Deficiency Take 1 capsule (5,000 Units total) by mouth every morning 4 coenzyme Q10 100 mg capsule Take 1 capsule (100 mg total) by mouth early intervention school psychologist before breakfast 4 cyclobenzaprine (FLEXERIL) 5 mg [...] capsuleIndication s:Supplement Take 1 tablet by mouth early intervention school psychologist before breakfast 4 gabapentin (NEURONTIN) 300 mg [...] in this encounter Progress Notes * Nathalie Hrerera RN - 10/30/2023 1:25 PM CST 10/30/23 1325 Communications Important Message from Medicare notice given to patient? Yes [place] letter given? Not Applicable Patient choice (Home Health/Hospice) list given to patient/inventory representative? Not Applicable Care Home Facility list given to patient/inventory representative? Not Applicable IM letter completed with patient at bedside. Patient informed of the planned discharge date, the date the beneficiary's financial liability begins, the beneficiary's appeal rights, and how and when to initiate an appeal. Patient provided copy of IM letter, IM letter placed in unit's designated medical record bin to be uploaded into patient's chart. CLAIRE Villagomez, RN BLE TRACER * Nathalie Herrera RN - 10/30/2023 9:08 AM CST 10/30/23 0908 Communications Important Message from Medicare notice given to patient? Not Applicable [place] letter given? Not Applicable Patient choice (Home Health/Hospice) list given to patient/inventory representative? Yes Care Home Facility list given to patient/inventory representative? Not Applicable Fiduciary Responsibility Patient/Designated decision maker was informed of [facility] fiduciary relationship as necessary Catalyst Unit Operator noted patient has been recommended for home heatlh by PT/OT. Catalyst Unit Operator met with thepatient at bedside to discuss recommendations by therapy and to work on a potential discharge disposition plan. Catalyst Unit Operator provided education to patient on therapy recommendations and home health services. Patient reported being interested in home health. underwriting operations manager provided a home health list to patient. Patient selected the following choices (preference order): Residential ([place]) Home Health [facility] Home Health underwriting operations manager sent out referrals via ECIN. CM awaiting acceptance from a home health agency and willcontinue to work on discharge planning with patient and family. Patient states he has own wheeled walker. CLAIRE Villagomez, RN BLE TRACER * Nathalie Champagne PT - 10/30/2023 7:32 [...] treatment team and contact the PT or PRINTING PLATE SETTER currently assigned to this patient. If a physical therapy clinician is not assigned to this patient, please call [phone]. 10/30/23 5370 PT Last Visit Session Type Treatment (and [...] SPV via logroll - ADEQUATE FOR DISCHARGE BLE TRACER * Nasir Manzanares MD - 10/30/2023 6:38 [...] For susceptibility results, refer to accession number [id number] on the urine culture from 10/11/23 MICROBIOLOGY [...] Manzanares M.D. Department of Orthopaedic Surgery, PGY-3 [facility] [place]/[facility]/ Please use [email or web address] to page/call the appropriate Orthopaedic Surgery Team/Resident if questions or concerns Please call with questions during daytime. See below for overnight issues. If you know the resident's name on the appropriate orthopaedic surgery team, please use [email or web address] to page resident directly. If questions arise and the appropriate resident can't be reached or you are calling overnight, please contact [phone] ([place]- 7:30 PM - 6:30 AM - Floor Resident) or [phone] (24 hours/day - Consult Resident) Cosigned by Hayder Vu MD at 11/06/2023 6:43 PM TROUBLE TRACER BLE TRACER BLE TRACER * Nasir Manzanares MD - 10/29/2023 1:32 PM CST Brief Ortho Progress Note: I did not personally visualize the drain tip after it was inadvertantly removed last night. However, per report from shift production associate, the drain tip looked good and entire drain was removed. Nasir Manzanares MD Orthopaedic Surgery PGY2 BLE TRACER BLE TRACER * Artie Real MD PhD - 10/29/2023 [...] water 2,000 mg 2,000 mg intravenous Q8H [facility] enoxaparin (LOVENOX) syringe 80 mg 1 mg/kg subcutaneous Q12H [facility] gabapentin (NEURONTIN) capsule 300 mg 300 mg oral Q8H [facility] levETIRAcetam (KEPPRA) tablet 1,000 mg 1,000 mg [...] non-contrast head CT. Responsible Team Darrian Bone ([phone]) Artie Real ([phone]) Hira Segura (Chief) For any questions or concerns, please contact the nurse practitioner signed in to the chart. If youare unable to reach them, you may contact the residents as listed. If it is after 6pm or you are unable to reach the PRIVATE TUTOR or resident team, please page the Neurosurgery Call Pager at [phone]. Note created by Artie Real MD PhD on 10/29/2023 at 7:20 AM. Cosigned by Gen Murray MD at 10/29/2023 4:52 PM TROUBLE TRACER BLE TRACER BLE TRACER * Nasir Manzanares MD - 10/29/2023 7:18 [...] For susceptibility results, refer to accession number [id number] on the urine culture from 10/11/23 MICROBIOLOGY [...] Manzanares M.D. Department of Orthopaedic Surgery, PGY-3 [facility] [place]/[facility]/ Please use [email or web address] to page/call the appropriate Orthopaedic Surgery Team/Resident if questions or concerns Please call with questions during daytime. See below for overnight issues. If you know the resident's name on the appropriate orthopaedic surgery team, please use [email or web address] to page resident directly. If questions arise and the appropriate resident can't be reached or you are calling overnight, please contact [phone] ([place]- 7:30 PM - 6:30 AM - Floor Resident) or [phone] (24 hours/day - Consult Resident) Cosigned by Hayder Vu MD at 11/06/2023 6:43 PM TROUBLE TRACER BLE TRACER BLE TRACER * Shane Bowen, OT - 10/28/2023 11:09 [...] not assigned to this patient, please call [phone]. 10/28/23 1101 General Session Type Treatment OT Received On [...] OT OT - OK to Discharge No BLE TRACER * Carey Hein, PT - 10/28/2023 10:00 [...] treatment team and contact the PT or PRINTING PLATE SETTER currently assigned to this patient. If a physical therapy clinician is not assigned to this patient, please call [phone]. 10/28/23 1000 PT Last Visit Session Type [...] 11/04/23 -- Goal Details: SPV with WW BLE TRACER * Nasir Manzanares MD - 10/28/2023 8:32 [...] For susceptibility results, refer to accession number [id number] on the urine culture from 10/11/23 MICROBIOLOGY [...] Manzanares M.D. Department of Orthopaedic Surgery, PGY-3 [facility]/ Please use [email or web address] to page/call the appropriate Orthopaedic Surgery Team/Resident if questions or concerns Please call with questions during daytime. See below for overnight issues. If you know the resident's name on the appropriate orthopaedic surgery team, please use [email or web address] to page resident directly. If questions arise and the appropriate resident can't be reached or you are calling overnight, please contact [phone] ([facility] 7:30 PM - 6:30 AM - Floor Resident) or [phone] (24 hours/day - Consult Resident) Cosigned by Hayder Vu MD at 11/06/2023 6:43 PM TROUBLE TRACER BLE TRACER BLE TRACER * Shane Bowen OT - 10/27/2023 10:26 [...] not assigned to this patient, please call [phone]. 10/27/23 1026 General Session Type Treatment OT [...] task) LE Dressing: Equipment Utilized Sock aid;Dressing stick;Junior Graphic Designer Toileting Toileting: Where assessed Toilet Toileting: Level [...] -- Reviewed By Ana Hampton RN 10/26/23 3944 Nathen Maharaj RN 10/24/23 1801 BLE TRACER * Nasir Manzanares MD - 10/27/2023 8:02 [...] For susceptibility results, refer to accession number [id number] on the urine culture from 10/11/23 MICROBIOLOGY [...] Manzanares M.D. Department of Orthopaedic Surgery, PGY-3 [facility] [place]/[facility]/ Please use [email or web address] to page/call the appropriate Orthopaedic Surgery Team/Resident if questions or concerns Please call with questions during daytime. See below for overnight issues. If you know the resident's name on the appropriate orthopaedic surgery team, please use [email or web address] to page resident directly. If questions arise and the appropriate resident can't be reached or you are calling overnight, please contact [phone] ([facility] 7:30 PM - 6:30 AM - Floor Resident) or [phone] (24 hours/day - Consult Resident) Cosigned by Hayder Vu MD at 11/06/2023 6:43 PM TROUBLE TRACER BLE TRACER BLE TRACER * Ana Hampton RN - 10/26/2023 5:44 PM CST Pt transferred to room [address] [place] [address] Face to face report given to annetta MACKEY. belongings transferred with pt. Heparin gtt to be d/c. Labs obtained prior to transfer. BLE TRACER * Sharondarrion Luana, RD - 10/26/2023 3:07 [...] Adult Diet Regular Diet effective now Question: ([facility]) Diet type Answer: Regular 10/25/23 0532 10/24/23 2100 Bedtime snack At bedtime Comments: If bedtime BG is less than 100mg/dl, give patient a 15 gram carbohydrate snack. 10/24/23 0353 Assessment / Impression: Pt screened [place] [address] [place]. Spoke to pt and at bedside. Reports pt was eating well PRINTING PLATE SETTER, appetite reduced following his surgery but has [...] RD following. Joleen Singh, MS, RD, LD [facility] [phone] On-call/weekend: [phone] BLE TRACER * Aston Tran PTA - 10/26/2023 2:05 PM CST 10/26/23 1405 PT Last Visit PT Missed Visit Reason Family declined;Other (comment) (Pt's has politely declined PT at this time citing increased pain and fatigue following prior OT session. Pt's requests that PT staff follow-up in AM.) Recommendation/Plan PT - Next Appointment 10/27/23 BLE TRACER * Shane Bowen, OT - 10/26/2023 9:53 [...] not assigned to this patient, please call [phone]. 10/26/23 0953 General Session Type Treatment OT [...] for task) LE Dressing: Equipment Utilized Sock aid;Junior Graphic Designer;Dressing stick Toileting Toileting: Where assessed Chair Toileting: [...] -- Reviewed By Nathen Maharaj RN 10/24/231800 BLE TRACER * Nasir Manzanares MD - 10/26/2023 7:08 [...] For susceptibility results, refer to accession number [id number] on the urine culture from 10/11/23 MICROBIOLOGY [...] Manzanares M.D. Department of Orthopaedic Surgery, PGY-3 [facility] [place]/[facility]/ Please use [email or web address] to page/call the appropriate Orthopaedic Surgery Team/Resident if questions or concerns Please call with questions during daytime. See below for overnight issues. If you know the resident's name on the appropriate orthopaedic surgery team, please use [email or web address] to page resident directly. If questions arise and the appropriate resident can't be reached or you are calling overnight, please contact [phone] ([place]- 7:30 PM - 6:30 AM - Floor Resident) or [phone] (24 hours/day - Consult Resident) Cosigned by Hayder Vu MD at 10/26/2023 1:04 PM TROUBLE TRACER BLE TRACER BLE TRACER BLE TRACER Associated attestation - Hayder Vu Jr., MD - 10/26/2023 1:04 PM TROUBLE TRACER Attending Attestation I have seen and examined [...] questions were answered. Hayder Vu Jr., MD Interlocking Tower Operator Department of Orthopaedic Surgery Division of Spine Surgery [facility] [employer] [place], [place] Tobacco Sorter done by [employer]; therefore, variances and [...] been reviewed with attending, Dr. Adis Nolan, [facility] Critical Care Performed by: Tia Nolan [...] plan with the patient's team and other medical/hr consultant staff. 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 Otherwise no c/f falls prior Prior Function Comments: Patient reports symptoms began in 07/2023; however, PRINTING PLATE SETTER was IND with all I/ADLs and was [...] name and address after me: Hayder Reddy [address] [place] [address] Without looking at the clock, tell me [...] -- Reviewed By Nathen Maharaj RN 10/24/23 0544 For questions, please review the treatment team and contact the occupational therapist currently assigned to this patient. If an occupational therapist is not assigned to this patient, please call [phone]. BLE TRACER * Alisa Nath, PT - 10/25/2023 8:30 [...] treatment team and contact the PT or PRINTING PLATE SETTER currently assigned to this patient. If a physical therapy clinician is not assigned to this patient, please call [phone]. 10/25/23 0830 PT Last Visit Session Type [...] roll Reviewed By Nathen Maharaj RN 10/24/231800 BLE TRACER * Nasir Manzanares MD - 10/25/2023 7:53 [...] For susceptibility results, refer to accession number [id number] on the urine culture from 10/11/23 MICROBIOLOGY [...] Manzanares M.D. Department of Orthopaedic Surgery, PGY-3 [facility] [place]/[facility]/[place] [facility] Please use [email or web address] to page/call the appropriate Orthopaedic Surgery Team/Resident if questions or concerns Please call with questions during daytime. See below for overnight issues. If you know the resident's name on the appropriate orthopaedic surgery team, please use [email or web address] to page resident directly. If questions arise and the appropriate resident can't be reached or you are calling overnight, please contact [phone] ([place]- 7:30 PM - 6:30 AM - Floor Resident) or [phone] (24 hours/day - Consult Resident) Cosigned by Hayder Vu MD at 10/26/2023 12:58 PM TROUBLE TRACER BLE TRACER BLE TRACER * Luana Brady NP - 10/25/2023 7:04 [...] Avel Bourne MD at 10/26/2023 5:50 PM TROUBLE TRACER BLE TRACER BLE TRACER * Hayden Barton MD - 10/24/2023 6:26 [...] (MSEC) 384 ms QTc 448 ms P [place] 34 degrees R [place] -30 degrees T [place] -13 degrees Diagnosis Normal sinus rhythm Left [...] Arceo Jr., MD at 10/25/2023 3:43 AM TROUBLE TRACER BLE TRACER BLE TRACER * Javad Sow, PT - 10/24/2023 12:03 PM CST Physical Therapy 10/24/23 1203 General PT Missed Visit Reason Family declined (request to allow patient to sleep) BLE TRACER * Dari Dickens [facility] - 10/24/2023 10:51 AM CST Patient profile has been reviewed by clinical pharmacy messenger on 10/24/2023. Case reviewed on rounds with [...] tablet 5 mg, 5 mg, oral, Q8H [facility], Oneyda Foley NP Carrier Fluids for Secondary [...] (premix) 2,000 mg, 2,000 mg, intravenous, Q8H [facility], Yesica Smith NP, 2,000 mg at 10/24/23 [...] capsule 300 mg, 300 mg, oral, Q8H [facility], Amos Langley NP glucagon injection 1 mg, [...] at 10/24/23 0936 [Held by Provider] multivit hritrulq-hywu-UM-calcium (THERA-M) tablet 1 tablet, 1 tablet, oral, [...] NP Gabrielle Gibson, RP, PharmD, BCPS, BCCCP BLE TRACER * Rob Langley NP - 10/24/2023 6:48 [...] (MSEC) 384 ms QTc 448 ms P [place] 34 degrees R [place] -30 degrees T [place] -13 degrees Diagnosis Normal sinus rhythm Left [...] plan with the ICU team and other medical/hr consultant staff, making frequent assessments and decisions [...] Avel Bourne MD at 10/24/2023 6:17 PM TROUBLE TRACER BLE TRACER BLE TRACER BLE TRACER * Ata Marquez MD - 10/24/2023 5:56 [...] Edited by: Oneyda Foley NP at 10/23/2023 1466 Objective Vitals: 24hr Min/Max: Temp Min: 36.5 [...] 5/5 5/5 Wrist flexion (C7) 4/5 5/5 Veterinary Epidemiologist (C8) 4/5 5/5 Interosseous of hand (T1) [...] For susceptibility results, refer to accession number [id number] on the urine culture from 10/11/23 MICROBIOLOGY [...] Marquez M.D. Department of Orthopaedic Surgery, PGY-3 [place] [facility] [place]/[facility]/ Please use [email or web address] to page/call the appropriate Orthopaedic Surgery Team/Resident if questions or concerns Please call with questions during daytime. See below for overnight issues. If you know the resident's name on the appropriate orthopaedic surgery team, please use [email or web address] to page resident directly. If questions arise and the appropriate resident can't be reached or you are calling overnight, please contact [phone] ([facility] 7:30 PM - 6:30 AM - Floor Resident) or [phone] (24 hours/day - Consult Resident) Cosigned by Hayder Vu MD at 10/24/2023 1:48 PM TROUBLE TRACER BLE TRACER BLE TRACER Associated attestation - Hayder Vu Jr., MD - 10/24/2023 1:48 PM TROUBLE TRACER Attending Attestation I have seen and examined [...] questions or concerns. Hayder Vu Jr., MD Interlocking Tower Operator Department of Orthopaedic Surgery Division of Spine Surgery [facility] [employer] [place], [place] Tobacco Sorter done by [employer]; therefore, variances and [...] of spine with ortho. Pipe Moseley MD BLE TRACER * Luciana Dickerson, PT - 10/23/2023 8:28 AM CST Physical Therapy 10/23/23 9082 General PT Missed Visit Reason Other (comment) (Per medical chart, pending OR today with ortho spine. Will follow up once post-op) BLE TRACER * Nasir Manzanares MD - 10/23/2023 6:14 [...] For susceptibility results, refer to accession number [id number] on the urine culture from 10/11/23 MICROBIOLOGY [...] the appropriate orthopaedic surgery team, please use [email or web address] to page resident directly. If questions arise and the appropriate resident can't be reached or you are calling overnight, please contact [phone] ([place]- 7:30 PM - 6:30 AM - Floor Resident) or [phone] (24 hours/day - Consult Resident) Cosigned by Hayder Vu MD at 10/23/2023 4:10 PM TROUBLE TRACER BLE TRACER BLE TRACER Associated attestation - Hayder Vu Jr., MD - 10/23/2023 4:10 PM TROUBLE TRACER Attending Attestation I have seen and examined [...] tibialis anterior, EHL. Hayder Vu Jr., MD Interlocking Tower Operator Department of Orthopaedic Surgery Division of Spine Surgery [facility] [place], [place] Tobacco Sorter done by [employer]; therefore, variances and inaccuracies may occur. * Jimenez Henao MD - 10/22/2023 3:29 PM CST Daily Progress Note Division of [facility] Medicine Name: Hira Evans : 1950 Today's Date: October 22, 2023 Age: 73 y.o. male Admission: 10/12/2023 Bed: [id number] LOS: 9 days Subjective Chief complaint: back [...] 33 minutes which was spent performing a iclf-ao-beqz encounter and personally completing the provider-level activities documented in the note. This includes time spent prior to the visit and after the visit in direct care of the patient. This time does not include time spent in any separately reportable services. Jimenez Henao MD BLE TRACER * Zehra Cook MD - 10/22/2023 6:43 [...] upcoming Tuesday 10/23. Please make NPO at [place], hold DVT prophylaxis. Edited by: Zehra Cook [...] For susceptibility results, refer to accession number [id number] on the urine culture from 10/11/23 MICROBIOLOGY [...] Edited by: Zehra Cook MD at 10/22/2023 6351 Please call with questions during daytime. See below for overnight issues. If you know the resident's name on the appropriate orthopaedic surgery team, please use [email or web address] to page resident directly. If questions arise and the appropriate resident can't be reached or you are calling overnight, please contact [phone] ([place]- 7:30 PM - 6:30 AM - Floor Resident) or [phone] (24 hours/day - Consult Resident) Cosigned by Hayder Vu MD at 10/23/2023 7:36 AM TROUBLE TRACER BLE TRACER BLE TRACER * Jimenez Henao MD - 10/21/2023 10:51 AM CST Daily Progress Note Division of Hospital Medicine Name: Hira Evans : 1950 Today's Date: October 21, 2023 Age: 73 y.o. male Admission: 10/12/2023 Bed: [id number] LOS: 8 days Subjective Chief complaint: back [...] 28 minutes which was spent performing a pftx-ro-yuvl encounter and personally completing the provider-level activities documented in the note. This includes time spent prior to the visit and after the visit in direct care of the patient. This time does not include time spent in any separately reportable services. Jimenez Henao MD BLE TRACER * Jimenez Henao MD - 10/20/2023 2:55 PM CST Daily Progress Note Division of Hospital Medicine Name: Hira Evans : 1950 Today's Date: October 20, 2023 Age: 73 y.o. male Admission: 10/12/2023 Bed: [id number] LOS: 7 days Subjective Chief complaint: back [...] 28 minutes which was spent performing a ahfp-oy-gdyq encounter and personally completing the provider-level activities documented in the note. This includes time spent prior to the visit and after the visit in direct care of the patient. This time does not include time spent in any separately reportable services. Jimenez Henao MD BLE TRACER * Belen Hennessy PA - 10/19/2023 1:59 [...] needed. BONITA Prince-Maddie Interventional Radiology Available via [employer] M-F 7 AM until 3 PM IR call pager M-F after 3 PM or on weekends If the patient does not already have a follow-up appointment arranged, please place order and then please call the [employer] front end loader operator at between 7:30 AM and 4:00 PM. BLE TRACER * Jimenez Henao MD - 10/19/2023 12:50 PM CST Daily Progress Note Division of Hospital Medicine Name: Hira Evans : 1950 Today's Date: October 19, 2023 Age: 73 y.o. male Admission: 10/12/2023 Bed: [id number] LOS: 6 days Subjective Chief complaint: back [...] 50 minutes which was spent performing a hzzi-yg-xfqd encounter and personally completing the provider-level activities documented in the note. This includes time spent prior to the visit and after the visit in direct care of the patient. This time does not include time spent in any separately reportable services. Jimenez Henao MD BLE TRACER * Jimenez Henao MD - 10/18/2023 5:15 PM CST Daily Progress Note Division of Hospital Medicine Name: Hira Evans : 1950 Today's Date: October 18, 2023 Age: 73 y.o. male Admission: 10/12/2023 Bed: [id number] LOS: 5 days Subjective Chief complaint: back [...] 55 minutes which was spent performing a gcrf-ag-itiw encounter and personally completing the provider-level activities documented in the note. This includes time spent prior to the visit and after the visit in direct care of the patient. This time does not include time spent in any separately reportable services. Jimenez Henao MD BLE TRACER * Osorio Calle MD - 10/18/2023 6:54 [...] For susceptibility results, refer to accession number [id number] on the urine culture from 10/11/23 MICROBIOLOGY [...] the appropriate orthopaedic surgery team, please use [email or web address] to page resident directly. If questions arise and the appropriate resident can't be reached or you are calling overnight, please contact [phone] ([facility] 7:30 PM - 6:30 AM - Floor Resident) or [phone] (24 hours/day - Consult Resident) Cosigned by Hayder Vu MD at 10/18/2023 12:31 PM TROUBLE TRACER BLE TRACER BLE TRACER * Michelle Harris PA - 10/17/2023 3:10 [...] 10 ml NS TID and record in [employer]. - Appreciate nursing care. Continue daily dressing changes and as needed, if soiled or dislodged. Monitor skin site. - IR to continue to follow. Michelle Harris PA-C Interventional Radiology Available via [employer] Chat M-F 7 AM until 3 PM. IR call pager M-F after 3 PM or on weekends. If the patient does not already have a follow-up appointment arranged, please place order and then please call the [employer] front end loader operator at between 7:30 AM and 4:00 PM. BLE TRACER * Jimenez Henao MD - 10/17/2023 2:46 PM CST Daily Progress Note Division of Hospital Medicine Name: Hira Carlos Manuel Finneganjacinda : 1950 Today's Date: October 17, 2023 Age: 73 y.o. male Admission: 10/12/2023 Bed: [id number] LOS: 4 days Subjective Chief complaint: back [...] 60 minutes which was spent performing a dhse-xy-hfwd encounter and personally completing the provider-level activities documented in the note. This includes time spent prior to the visit and after the visit in direct care of the patient. This time does not include time spent in any separately reportable services. Jimenez Henao MD BLE TRACER * Luciana Dickerson, PT - 10/17/2023 2:21 [...] POC Prior Function Prior Function Level of [place]: Independent functional transfers, Independent with ambulation Lives With: Spouse Receives Help From: Spouse/Significant other (full time paramedic assist as needed) Fall within the last [...] with all mobility to allow return to [facility] BLE TRACER * Hayden Youngblood MD - 10/17/2023 8:30 [...] For susceptibility results, refer to accession number [id number] on the urine culture from 10/11/23 MICROBIOLOGY [...] the appropriate orthopaedic surgery team, please use [email or web address] to page resident directly. If questions arise and the appropriate resident can't be reached or you are calling overnight, please contact [phone] ([facility] 7:30 PM - 6:30 AM - Floor Resident) or [phone] (24 hours/day - Consult Resident) Cosigned by Hayder Vu MD at 10/17/2023 8:47 AM TROUBLE TRACER BLE TRACER BLE TRACER * Hayder Vu MD - 10/17/2023 7:19 [...] questions or concerns. Hayder Vu Jr., MD Interlocking Tower Operator Department of Orthopaedic Surgery Division of Spine Surgery [facility] [employer] [place], [place] BLE TRACER BLE TRACER * Jimenez Henao MD - 10/16/2023 12:31 PM CST Daily Progress Note Division of Hospital Medicine Name: Hira Evans : 1950 Today's Date: October 16, 2023 Age: 73 y.o. male Admission: 10/12/2023 Bed: [id number] LOS: 3 days Subjective Chief complaint: back [...] 80 minutes which was spent performing a qflw-pw-lkrz encounter and personally completing the provider-level activities documented in the note. This includes time spent prior to the visit and after the visit in direct care of the patient. This time does not include time spent in any separately reportable services. Jimenez Henao MD BLE TRACER * Collin Barnes MD - 10/16/2023 8:24 [...] 8 hours. -Continue to monitor drainage output. BLE TRACER * Hayden Youngblood MD - 10/16/2023 6:46 [...] For susceptibility results, refer to accession number [id number] on the urine culture from 10/11/23 MICROBIOLOGY [...] the appropriate orthopaedic surgery team, please use [email or web address] to page resident directly. If questions arise and the appropriate resident can't be reached or you are calling overnight, please contact [phone] ([place]- 7:30 PM - 6:30 AM - Floor Resident) or [phone] (24 hours/day - Consult Resident) Cosigned by Hayder Vu MD at 10/16/2023 7:19 AM TROUBLE TRACER BLE TRACER BLE TRACER * Marquise Lim MD - 10/15/2023 8:52 AM CST Daily Progress Note Division of Hospital Medicine Name: Hira Evans : 1950 Today's Date: October 15, 2023 Age: 73 y.o. male Admission: 10/12/2023 Bed: [id number] LOS: 2 days Subjective Chief complaint: back [...] 80 minutes which was spent performing a owha-fe-wqyn encounter and personally completing the provider-level activities documented in the note. This includes time spent prior to the visit and after the visit in direct care of the patient. This time does not include time spent in any separately reportable services. Marquise Lim MD BLE TRACER * Ana Alfaro MD - 10/15/2023 7:20 [...] For susceptibility results, refer to accession number [id number] on the urine culture from 10/11/23 Exam: Left PCN site c/d/i. Assessment and Plan: 73-year old man with partially obstructing left ureteral stone post left PCN placement in 10/14/2023. Continue to flush 10 mL normal saline every 8 hours. Continue to monitor drainage output. BLE TRACER * Hayden Youngblood MD - 10/15/2023 7:07 [...] 5/5 in BUE deltoid, biceps, triceps, WE/WF, paper cleaner Sensation Left lower extremity: SILT L2 to [...] For susceptibility results, refer to accession number [id number] on the urine culture from 10/11/23 MICROBIOLOGY [...] the appropriate orthopaedic surgery team, please use [email or web address] to page resident directly. If questions arise and the appropriate resident can't be reached or you are calling overnight, please contact [phone] ([place]- 7:30 PM - 6:30 AM - Floor Resident) or [phone] (24 hours/day - Consult Resident) Cosigned by Hayder Vu MD at 10/15/2023 8:54 AM TROUBLE TRACER BLE TRACER BLE TRACER Associated attestation - Hayder Vu Jr., MD - 10/15/2023 8:54 AM TROUBLE TRACER Attending Attestation I have seen and examined [...] of Mr. Evans. Hayder Vu Jr., MD Interlocking Tower Operator Department of Orthopaedic Surgery Division of Spine Surgery [facility] [employer] [place], [place] Tobacco Sorter done by [employer]; therefore, variances and [...] For susceptibility results, refer to accession number [id number] on the urine culture from 10/11/23 MICROBIOLOGY [...] the appropriate orthopaedic surgery team, please use [email or web address] to page resident directly. If questions arise and the appropriate resident can't be reached or you are calling overnight, please contact [phone] (Sun-Th 7:30 PM - 6:30 AM - Floor Resident) or [phone] (24 hours/day - Consult Resident) Cosigned by Hayder uV MD at 10/15/2023 9:21 AM TROUBLE TRACER BLE TRACER BLE TRACER BLE TRACER Associated attestation - Hayder Vu Jr., MD - 10/15/2023 9:21 AM TROUBLE TRACER I agree with the resident's note with [...] Age: 73 y.o. male Admission: 10/12/2023 Bed: [id number] LOS: 1 days Subjective Chief complaint: fever+chills [...] 70 minutes which was spent performing a oxml-ip-ejec encounter and personally completing the provider-level activities documented in the note. This includes time spent prior to the visit and after the visit in direct care of the patient. This time does not include time spent in any separately reportable services. Marquise Lim MD BLE TRACER * Marquise Lim MD - 10/13/2023 7:43 AM CST Daily Progress Note Division of Hospital Medicine Name: Hira Evans : 1950 Today's Date: October 13, 2023 Age: 73 y.o. male Admission: 10/12/2023 Bed: [id number] LOS: 0 days Subjective Chief complaint: Sepsis [...] : / Supplementary Attestation Marquise Lim MD BLE TRACER documented in this encounter H&P Notes * [...] 1 tablet (10 mg total) by mouth early intervention school psychologist before breakfast cholecalciferol (VITAMIN D-3) 5,000 unit capsule Take 1 capsule (5,000 Units total) by mouth every morning coenzyme Q10 100 mg capsule Take 1 capsule (100 mg total) by mouth early intervention school psychologist before breakfast DILT-XR 240 mg 24 hr capsule Take 1 capsule (240 mg total) by mouth 2 (two) times a day 0 fish,bora,flax oils-om3,6,9no1 400-400-400 mg capsule Take 1 tablet by mouth early intervention school psychologist before breakfast irbesartan (AVAPRO) 300 mg tablet [...] Arceo Jr., MD at 10/24/2023 5:52 AM TROUBLE TRACER BLE TRACER BLE TRACER Associated attestation - Wilder Arceo Jr., MD - 10/24/2023 5:52 AM TROUBLE TRACER Critical Care Time: I have spent 75 [...] plan with the ICU team and other medical/hr consultant staff. Wilder Arceo Jr., MD * [...] for OR today from a medical standpoint. BLE TRACER BLE TRACER Source Note - Severo Merlos MD - 10/13/2023 5:00 AM TROUBLE TRACER History and Physical Division of [facility] Medicine Name: Hira Evans : 1950 Today's Date: October 13, 2023 Age: 73 y.o. male Admit Date: 10/12/2023 Bed: [id number] LOS: 0 days Subjective Hira Evans is [...] 1 tablet (10 mg total) by mouth early intervention school psychologist before breakfast cholecalciferol (VITAMIN D-3) 5,000 unit capsule Take 1 capsule (5,000 Units total) by mouth every morning coenzyme Q10 100 mg capsule Take 1 capsule (100 mg total) by mouth early intervention school psychologist before breakfast DILT-XR 240 mg 24 hr capsule Take 1 capsule (240 mg total) by mouth 2 (two) times a day fish,bora,flax oils-om3,6,9no1 400-400-400 mg capsule Take 1 tablet by mouth early intervention school psychologist before breakfast irbesartan (AVAPRO) 300 mg tablet [...] 60 minutes which was spent performing a zlnj-dt-qnes encounter and personally completing the provider-level activities documented in the note. This includes time spent prior to the visit and after the visit in direct care of the patient. This time does not include time spent in any separately reportable services. Severo Merlos MD BLE TRACER * Gabriel Bennett MD - 10/18/2023 9:06 AM CST I have reviewed the H&P, examined the patient, and endorse the findings as written. Plan of Care : Based on the above findings, I consider Hira Evans to be an acceptable risk for : Procedure(s): CYSTOSCOPY PYELOGRAM - RETROGRADE LITHOTRIPSY - LASER URETEROSCOPY BLE TRACER Source Note - Fredrick Mcneil MD - 10/12/2023 10:45 PM TROUBLE TRACER Images from the original note were not [...] to concerning symptoms, he was transferred to [facility] ED for further workup. Patient's reports [...] or concerns, please page Urology through the oxygraph operator. Vero Tolentino MD 10/12/2023 BLE TRACER BLE TRACER BLE TRACER * Severo Merlos MD - 10/13/2023 5:00 AM CST History and Physical Division of [facility] Medicine Name: Hira Evans : 1950 Today's Date: October 13, 2023 Age: 73 y.o. male Admit Date: 10/12/2023 Bed: [id number] LOS: 0 days Subjective Hira Evans is [...] 1 tablet (10 mg total) by mouth early intervention school psychologist before breakfast cholecalciferol (VITAMIN D-3) 5,000 unit capsule Take 1 capsule (5,000 Units total) by mouth every morning coenzyme Q10 100 mg capsule Take 1 capsule (100 mg total) by mouth early intervention school psychologist before breakfast DILT-XR 240 mg 24 hr capsule Take 1 capsule (240 mg total) by mouth 2 (two) times a day fish,bora,flax oils-om3,6,9no1 400-400-400 mg capsule Take 1 tablet by mouth early intervention school psychologist before breakfast irbesartan (AVAPRO) 300 mg tablet [...] 60 minutes which was spent performing a yuyl-kx-exeq encounter and personally completing the provider-level activities documented in the note. This includes time spent prior to the visit and after the visit in direct care of the patient. This time does not include time spent in any separately reportable services. Severo Merlos MD BLE TRACER documented in this encounter Procedure Notes * [...] plan with the patient's team and other medical/hr consultant staff. This time was in addition to and separate from care provided by other practitioners on this day of service. BLE TRACER * Wilder Arceo Jr., MD - 10/24/2023 [...] plan with the ICU team and other medical/hr consultant staff, making frequent assessments and decisions [...] hemorrhage, Acute pain/acute postoperative pain and Seizure [employer] mycardial infarction (Non-STEMI) and Cardiac arrest Hypo- [...] spent time documenting in the medical record BLE TRACER * Wilder Arceo Jr., MD - 10/23/2023 [...] plan with the ICU team and other medical/hr consultant staff, making frequent assessments and decisions [...] spent time documenting in the medical record BLE TRACER documented in this encounter Consult Notes * Yumiko Rome MD - 10/28/2023 9:48 AM CSTAssociated Order(s): IP CONSULT TO NEUROSURGERY Neurosurgery Consultation Patient: Hira Evans CSN: [id number] : 1950 Admission date: 10/12/2023 Length of [...] open L4-5 posterior spinal fusion (TLIF from [facility], laminectomy autograft and allograft). Postprocedure, in the [...] His , Neelima, can be reached at [phone] Family history: Reviewed and noncontributory. Physical Examination: [...] discussed with the chief resident and attending community relations rep. The patient was evaluated within 30 minutes of consultation Yumiko Rome MD Cosigned by Jeremy Mojica MD at 10/30/2023 3:48 PM TROUBLE TRACER BLE TRACER BLE TRACER BLE TRACER Associated attestation - Jeremy Mojica MD - 10/30/2023 3:48 PM TROUBLE TRACER I have seen and examined the patient [...] 73 y.o. male Admit Date: 10/12/2023 Bed: [id number] LOS: 13 days Subjective HPI 73 year [...] and a subsequent cardiac arrest. [facility] PE 10/23 with acute pulmonary emboli [...] 1 tablet (10 mg total) by mouth early intervention school psychologist before breakfast cholecalciferol (VITAMIN D-3) 5,000 unit capsule Take 1 capsule (5,000 Units total) by mouth every morning coenzyme Q10 100 mg capsule Take 1 capsule (100 mg total) by mouth early intervention school psychologist before breakfast DILT-XR 240 mg 24 hr capsule Take 1 capsule (240 mg total) by mouth 2 (two) times a day fish,bora,flax oils-om3,6,9no1 400-400-400 mg capsule Take 1 tablet by mouth early intervention school psychologist before breakfast irbesartan (AVAPRO) 300 mg tablet [...] Medicine Consults will sign off. Please call [phone] for further questions. Viry Patterson MD Cosigned by Ryan London MD at 10/26/2023 5:20 PM TROUBLE TRACER BLE TRACER BLE TRACER Associated attestation - Ryan London MD - 10/26/2023 5:20 PM TROUBLE TRACER Attending Documentation I have seen and examined [...] mg/mL injection - ADS Override Pull multivit vhjspagx-dfth-RJ-calcium (THERA-M) tablet 1 tablet 1 tablet oral [...] representing a ureteral stone. Dictated by: Tyrone Lonodno M.D. The radiology attending physician has personally [...] unlikely the patient will require anti-seizure medication rat exterminator, but it is reasonable to continue AEDs [...] will decide whether he needs this medication fpc depending on the workup. Thank you for this consult. Neurology Consult Call Back: [phone] (senior phone). Please do nothesitate to contact us with any questions or concerns, and specify that this consult was staffed with consult team A. Zaheer Bennett MD, PHD Neurology Resident, PGY-2 10/24/2023 1:15 AM Cosigned by Steve Funk MD PhD at 10/24/2023 10:51 PM TROUBLE TRACER BLE TRACER BLE TRACER BLE TRACER BLE TRACER Associated attestation - Steve Funk MD PhD - 10/24/2023 10:51 PM TROUBLE TRACER I have seen and examined the patient [...] to concerning symptoms, he was transferred to [facility] ED for further workup. Patient's reports [...] or concerns, please page Urology through the oxygraph operator. Vero Tolentino MD 10/12/2023 BLE TRACER BLE TRACER BLE TRACER * Hayden Youngblood MD - 10/12/2023 7:22 [...] 1 tablet (10 mg total) by mouth early intervention school psychologist before breakfast Fidelia Perdue MD cholecalciferol (VITAMIN D-3) 5,000 unit capsule Take 1 capsule (5,000 Units total) by mouth every morning Fidelia Perdue MD coenzyme Q10 100 mg capsule Take 1 capsule (100 mg total) by mouth early intervention school psychologist before breakfast Fidelia Perdue MD DILT-XR 240 mg 24 hr capsule Take 1 capsule (240 mg total) by mouth 2 (two) times a day 05/12/19 Fidelia Perdue MD fish,bora,flax oils-om3,6,9no1 400-400-400 mg capsule Take 1 tablet by mouth early intervention school psychologist before breakfast Fidelia Perdue MD irbesartan (AVAPRO) [...] extension 5/5 5/5 Wrist flexion 5/5 5/5 Veterinary Epidemiologist 5/5 5/5 Interosseous of hand 5/5 5/5 [...] M.D., Ph.D. Department of Orthopaedic Surgery, PGY-2 [facility] in [facility]/ Please use [employer] to page/call the appropriate Orthopaedic Surgery Team/Resident if questions or concerns. Normal business hours: If you know the resident's name on the appropriate orthopaedic surgery team,please use the Directory Search at [email or web address] to page resident directly. If questions arise and the appropriate resident can't be reached or you are calling overnight, please contact [phone] ( 7:30 PM - 6:30 AM - Floor Resident) or [phone] (24 hours/day - Consult Resident) Cosigned by Hayder Vu MD at 10/14/2023 10:41 PM TROUBLE TRACER BLE TRACER BLE TRACER documented in this encounter Nursing Notes * Sherice Wilcox RN - 10/24/2023 1:21 AM CST Fredrick MACKEY [place] floor [place] [address] in anticipation of admission to our unit.Post op, patient went to ICU. AN brought bag of patient belongings to current room 4401. BLE TRACER * Nolvia Gonzales RN - 10/23/2023 10:20 [...] Anesthesia at bedside tobring patient to ICU. BLE TRACER * Fredrick Sheffield RN - 10/23/2023 7:04 PM CST Patient belongings (blanket, jacket, shoes, mirror, shirt, pajama pants) brought to unit [address]204, where patient is transferring. Entire room searched for belongings, [place] [address]. BLE TRACER * Frieda Cai RN - 10/18/2023 6:14 PM CST Patient went to surgery today and got a stent place, the catheter was changed during surgery. No drainage or leakage around the harris cath noted. BLE TRACER * Ad Parikh RN - 10/16/2023 3:01 PM CST Assumed care for patient at 1500. This Rn agrees with previous RN's assessment. Patient A&ox4 and resting in bed. Will continue to monitor. BLE TRACER * Adia Poole RN - 10/15/2023 7:44 [...] needs, and inagreement with bedside shift report. BLE TRACER documented in this encounter ED Notes * Justice Vivas RN - 10/12/2023 6:25 PM CST Bed: ED1-14 Expected date: Expected time: Means of arrival: Car Comments: Justice Vivas RN 10/12/23 4475 BLE TRACER * Amol Hargrove MD - 10/12/2023 6:22 [...] E coli. Patient was sent to the [facility] ED at the instruction of Dr. [...] Behavior: Behavior normal. MDM Medical Decision Making Hiar Evans is a 73 y.o. male with [...] of Care ED Course as of 10/12/23 2122 Time: 10/12 1840 Comment: Attending physician assessment [...] leg weakness Amol Hargrove MD Resident 10/12/23 8037 Cosigned by Rafael Cowan MD at 10/14/2023 12:05 AM TROUBLE TRACER BLE TRACER BLE TRACER Associated attestation - Rafael Cowan MD - 10/14/2023 12:05 AM TROUBLE TRACER I have seen and examined the patient [...] spinal surgery on Sunday. Reports malodorous urine. BLE TRACER documented in this encounter Miscellaneous Notes * Provider Query - Hayder Vu MD - 10/30/2023 4:07 PM TROUBLE TRACER Greet[address] Dr. Vu Please clarify if sepsis [...] the patient???s medical record. Sincerely, Boaz Jolly [employer] BLE TRACER * Provider Query - Hayder Vu MD - 10/30/2023 4:07 PM TROUBLE TRACER Greet[address] Dr. Vu, Both respiratory failure and [...] the patient???s medical record. Sincerely, Boaz Harris Replaced By [facility] Information Management BLE TRACER * Plan of Care - Nathalie Herrera RN - 10/30/2023 2:38 PM CST [facility] ([facility] Home Health unable to accept due to insurance. Referrals sent to remaining home health agencies that serve patient's zip code: [facility]---unable to accept due to staffing limitations [facility]----no longer open [facility]---unable to accept due to staffing limitations [facility]---unable to accept due to insurance. [facility]--unable to accept due to staffing limitations [facility]--unable to accept due to insurance. At this time, all home health agency options have been exhausted. Unable to secure home health therapy. Called patient's spouse Cynda to update. No further case management needs identified at this time BLE TRACER BLE TRACER BLE TRACER BLE TRACER * Plan of Care - Matilda Gonzales [...] Declined PRN pain med for trip home. BLE TRACER * Plan of Care - Nathalie Herrera RN - 10/30/2023 1:21 PM CST [facility] ([facility] Health has accepted patient pending insurance [...] [facility] to accept. [phone] if and when home health is secured. BLE TRACER * Plan of Care - Nathalie Herrera RN - 10/30/2023 9:29 AM CST [facility] unable to accept. BLE TRACER * Plan of Deny - Suzanne Mendoza [...] health care needs will improve Outcome: Progressing BLE TRACER * Plan of Care - Matilda Gonzales [...] up. EPC used for sacral chaffing. Several community relations rep residents notified regarding drain which accidentally came out during care. BLE TRACER * Plan of Care - Suzanne Mendoza [...] Goal: Pain level will decrease Outcome: Progressing BLE TRACER * Plan of Care - Erick Melchor [...] Melchor RN Outcome: Progressing 10/28/2023 1610 by rEick Melchor RN Outcome: Progressing Problem: Lack of [...] 1610 by Erick Melchor RN Outcome: Progressing BLE TRACER * Plan of Deny - Ritu Marin [...] pain meds. VS and drain output documented. BLE TRACER * Significant Event - Viry Patterson MD [...] Medicine Consults will sign off. Please call [phone] for further questions. Viry Patterson MD PGY3 Internal Medicine BLE TRACER * Assessment & Plan Note - Viry Patterson MD - 10/26/2023 5:11 PM TROUBLE TRACER Associated Problem(s): Pulmonary embolism (HCC) Patient with new PE on CT PE 10/23. Tolerating heparin gtt. Likely provoked in setting of recent surgery. - Patient will need at least 3 months of anticoagulation, and can follow up with PCP for consideration of discontinuation - If no other surgical interventions planned at this time, can transition to therapeutic Lovenox vsEliquis per primary team. BLE TRACER * Plan of Care - Luana Savage RN - 10/26/2023 2:49 PM CST Per Medical Chart/Rounds/IDR: Per IDR rounds with Catalyst Unit Operator, Rn Delivery, Charge Nurse, and MD, the patient is [...] assistance, please check the treatment team in [facility] for the assigned housing case manager or contact the weekend Case Management phone BLE TRACER * Plan of Care - Harvey Horn [...] 2.5L via nasal cannula. Repositioned for comfort. BLE TRACER BLE TRACER * Significant Event - Tia Nolan NP - 10/25/2023 8:13 PM TROUBLE TRACER CHUGG-OUT (SICU to OU/Floor Transfer) SICU MD [...] Ruano of the ortho service. QUESTIONS? Call [phone] ([phone]). BLE TRACER * Consults, Subsequent - James Silva MD [...] unlikely the patient will require anti-seizure medication rat exterminator, but it is reasonable to con tinue [...] provide their number in the discharge instructions: [phone] The neurology consult service will sign off at this time. Please call the neurology consult phone at [phone] (Senior) with questions. James Silva MD Neurology resident PGY-3 BLE TRACER * Plan of Care - Tamia Holman RN - 10/25/2023 10:41 AM CST Goals: Clinical Goals for the Shift: VSS, pending MRI, pain control, continue heparin drip, PM labs Summary: Plans for the day, pain control, VSS, labs/monitor hepain gtt, MRI pending. 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 Phan stated that they have a good support system. Do you have a Pentecostal Preference or Affiliation?: No Are there any Pentecostal Practices that are important to maintain while [...] More than three times a week Attends Pentecostal Services: Never Active Member of Clubs or [...] including surrogate decision makers, durable power of tool grinding technician, and advanced directives. Patient has a POA [...] CM following for discharge planning. GEN Medina, ELEVATOR RUNNER BLE TRACER * Significant Event - Nasir Manzanares MD - 10/23/2023 10:14 PM TROUBLE TRACER At the end of the OR case, [...] PACU. Patient was brought to ICU. Nasir Manzaanres MD Orthopaedic Surgery PGY2 Cosigned by Hayder Vu MD at 10/23/2023 11:31 PM TROUBLE TRACER BLE TRACER BLE TRACER Associated attestation - Hayder Vu Jr., MD - 10/23/2023 11:31 PM TROUBLE TRACER Upon transfer to PACU, patient was noted [...] to follow closely. Hayder Vu Jr., MD Interlocking Tower Operator Department of Orthopaedic Surgery Division of Spine Surgery [facility] [employer] [place], [place] * Op Note - Hayder Vu MD - 10/23/2023 5:14 PM CST Operative Report Surgeon Hayder Vu MD Business Rules Analyst(s) Nasir Manzanares MD Anesthesia General endotracheal. Preoperative [...] of the L5 spinous process. A lamina arson investigator was placed between the remainder of the [...] placed under fluoroscopic guidance. A Globus Sable [id number] 7-14mm 15 Deg lordo tic cage was [...] Implant Name Type Inv. Item Serial No. Flight Operations Engineer Lot No. LRB No. Used Action ALLOSOURCE Crushed Chip Frozen Graft 30ml Bone Cancellous [id number] - [id number] ALLOSOURCE CrushedChip Frozen Graft 30ml Bone Cancellous [id number] Allosource [id number] N/A 1 Implanted Sensipass Allograft Bone Putty 2.5CC 700-025 - [id number] Sensipass Allograft Bone Putty2.5CC 700-025 [id number] N/A 1 Implanted G[employer] Creo Od7.5 Mm L55 Mm Thread Polyaxial Spine Screw Bone Titanium 5146.1757 - [id number] [employer] Creo Od7.5 Mm L55 Mm Thread Polyaxial Spine Screw Bone Titanium 5146.1757 Globus Medical N/A 1 Implanted [employer] Creo Od7.5 Mm L50 Mm Thread Polyaxial Spine Screw Bone Titanium 5146.1752 - [id number] [employer] Creo Od7.5 Mm L50 Mm Thread Polyaxial Spine Screw Bone Titanium 5146.1752 Globus Medical N/A 3 Implanted [employer] Creo Thread Spinal Cap Locking Nonsterile 1119.0010 - [id number] [employer] Creo Thread Spinal Cap Locking Nonsterile 1119.0010 Globus Medical N/A 4 Implanted [employer] Implant Spinal Sable 57u79wu 7-14mm 15 Deg 1172.2121S - [id number] [employer] Implant Spinal Sable 39b00st 7-14mm 15 Deg 1172.2121S Gl[employer]us Medical N/A 1 Implanted [employer] Creo 5.5mm 45mm Curve Daniel Spinal Titanium 1119.7045 - [id number] [employer] Creo 5.5mm 45mm Curve Daniel Spinal Titanium 1119.7045 popAD N/A 2 Implanted Specimens None. Counts Correct. Estimated Blood Loss 150 mL. Total IV Fluids 1500 mL. Complications None. Condition on Discharge from OR Stable. Hayder Vu Jr., MD Interlocking Tower Operator Department of Orthopaedic Surgery Division of Spine Surgery [place], [place] Operative Report dictated by Hayder Vu MD on 10/26/23 using Fluency Direct. Transcriptionvariances may occur. BLE TRACER BLE TRACER BLE TRACER * Brief Op Note - Nasir Manzanares MD - 10/23/2023 5:14 PM CST Operative Progress Note Surgical Team: Surgeon(s) and Role: * Hayder Vu MD - Primary * Nasir Manzanares MD - Resident - Assisting Anesthesiologist: Ann Saalzar MD BID WRITER: Deisy Snyder CRNA Pocket Builder: Alice Vaughn MD Beef Cattle Farmer: Yeni Walker RN; Rena Michelle RN Scrub Relief: Sergio-Nasur, Rad, ST Scrub: Teo Stiles ST Database Development Project Manager: Belen Valdez [place] FLOAT: Oneyda Foley [...] Implant Name Type Inv. Item Serial No. Flight Operations Engineer Lot No. LRB No. Used Action ALLOSOURCE Crushed Chip Frozen Graft 30ml Bone Cancellous [id number] - [id number] ALLOSOURCE CrushedChip Frozen Graft 30ml Bone Cancellous [id number] Allosource [id number] N/A 1 Implanted Epiphany [employer] INC Allograft Bone Putty 2.5CC 700-025 - [id number] Epiphany IncDICS Minuum Allograft Bone Putty2.5CC 700-025 ILD Teleservicesdics Inc [id number] N/A 1 Implanted G[employer] Creo Od7.5 Mm L55 Mm Thread Polyaxial Spine Screw Bone Titanium 5146.1757 - [id number] [employer] Creo Od7.5 Mm L55 Mm Thread Polyaxial Spine Screw Bone Titanium 5146.1757 Globus Medical N/A 1 Implanted [employer] Creo Od7.5 Mm L50 Mm Thread Polyaxial Spine Screw Bone Titanium 5146.1752 - [id number] [employer] Creo Od7.5 Mm L50 Mm Thread Polyaxial Spine Screw Bone Titanium 5146.1752 Globus Medical N/A 3 Implanted [employer] Creo Thread Spinal Cap Locking Nonsterile 1119.0010 - [id number] [employer] Creo Thread Spinal Cap Locking Nonsterile 1119.0010 Globus Medical N/A 4 Implanted [employer] Implant Spinal Sable 70h41ml 7-14mm 15 Deg 1172.2121S - [id number] [employer] Implant Spinal Sable [id number] 7-14mm 15 Deg 1172.2121S Gl[employer] Medical N/A 1 Implanted [employer] Creo 5.5mm 45mm Curve Daniel Spinal Titanium 1119.7045 - [id number] [employer] Creo 5.5mm 45mm Curve Daniel [...] Hayder Vu MD at 10/26/2023 12:57 PM TROUBLE TRACER BLE TRACER BLE TRACER * Plan of Care - Stefany Crook RN - 10/23/2023 12:06 AM CST Problem: Safety: Goal: Will remain free from falls Outcome: Progressing Goals: Clinical Goals for the Shift: VSS, pain management, safety and comfort Summary: BLE TRACER * Plan of Care - Lisa Rudolph [...] Goal: Pain level will decrease Outcome: Progressing BLE TRACER * Plan of Care - Lana Turcios [...] VSS, pain management, safety and comfort Summary: BLE TRACER * Plan of Care - Harmony Norman [...] Goal: Pain level will decrease Outcome: Progressing BLE TRACER * Plan of Care - Johnnie Flores [...] with VS WNL, pain free, and safe. BLE TRACER * Plan of Care - Brandyn Cain [...] Shift: VS WNL, pain control and safety. BLE TRACER * Plan of Care - Johnnie Flores [...] pain was under control with prn medication. BLE TRACER * Consults, Subsequent - Vero Tolentino MD - 10/19/2023 10:01 AM TROUBLE TRACER Images from the original note were not [...] or concerns, please page Urology through the oxygraph operator. Vero Tolentino MD 10/19/2023 Cosigned by Fredrick Mcneil MD at 10/19/2023 10:25 AM TROUBLE TRACER BLE TRACER BLE TRACER * Plan of Care - Brandyn Cain [...] Goal: Pain level will decrease Outcome: Ongoing BLE TRACER * Plan of Care - Frieda Cai [...] unmanageable or unbearable will improve Outcome: Progressing BLE TRACER * Plan of Care - Torey Mckenna RN - 10/18/2023 3:26 PM CST Per Medical Chart/Rounds/DCAM: IDR ADD: TBD Plan & referrals made/in place: [facility], but may discharge todaughter's house in [place], [place]. Patient went to OR with urology [...] Patient and/or family are agreeable with plan. underwriting operations manager will continue to follow and assist with discharge planning as needed. If any further discharge needs arise, please contact the covering housing case manager. BLE TRACER * Consults, Subsequent - Vero Tolentino MD - 10/18/2023 3:15 PM TROUBLE TRACER Images from the original note were not [...] or concerns, please page Urology through the oxygraph operator. Vero Tolentino MD 10/18/2023 Cosigned by Gabriel Bennett MD at 10/18/2023 6:54 PM TROUBLE TRACER BLE TRACER BLE TRACER BLE TRACER Associated attestation - Gabriel Bennett MD - 10/18/2023 6:54 PM TROUBLE TRACER I have seen and examined the patient [...] to get PET scan done [facility]. BLE TRACER * Plan of Care - Rosi Fernandes MD - 10/18/2023 11:19 AM TROUBLE TRACER Mr. Evans is a 73 yo male [...] from 6:00 to 18:00 (Sunday-Sunday), please call [phone].If you want to contact Urology consults after hours (18:00 to 6:00) and over the weekend, please call the oxygraph operator. Cosigned by Gabriel Bennett MD at 10/18/2023 3:59 PM TROUBLE TRACER BLE TRACER BLE TRACER * Op Note - Gabriel Bennett MD - 10/18/2023 8:45 AM CST OPERATIVE REPORT SURGEON Gabriel Bennett M.D. SUPERVISOR HAND WORKERS Vero Tolentino MD ANESTHESIA General. PREOPERATIVE DIAGNOSIS [...] ensure proper patient and proper procedure. A 22-Khmer rigid cystoscope was introduced into the urethra [...] present and participated in the entire procedure. BLE TRACER * Plan of Care - Christal García [...] Goal: Pain level will decrease Outcome: Progressing BLE TRACER * Plan of Care - Lisa Rudolph [...] unmanageable or unbearable will improve Outcome: Progressing BLE TRACER * Consults, Subsequent - Vero Tolentino MD - 10/17/2023 11:41 AM TROUBLE TRACER Images from the original note were not [...] Continue antibiotics through surgery - NPO @ [place] for stone procedure tomorrow - Urology will continue to follow Thank you for allowing us to participate in the care of this patient. For any questions or concerns, please page Urology through the oxygraph operator. Vero Tolentino MD 10/17/2023 Cosigned by Maris Montilla MD at 10/18/2023 9:04 AM TROUBLE TRACER BLE TRACER BLE TRACER * Plan of Care - Stacy Tim [...] keep pt free from injury and comfortable BLE TRACER * Plan of Care - Rebecca Lozano [...] Activity: Goal: Mobility will improve Outcome: Progressing BLE TRACER * Plan of Care - Dionne Palafox [...] medications given withpartial relief. Vital signs stable. BLE TRACER * Plan of Care - Lana Turcios [...] q 8 hours, pain management, encourage activity BLE TRACER * Assessment & Plan Note - Jimenez Henao MD - 10/15/2023 9:06 AM TROUBLE TRACER Associated Problem(s): Left perinephric collection, 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 Likely post procedure complication. Urology following - CT urogram on 10/16 notes presence of L perinephric hematoma - Continue to trend white count, renal function and fever curve BLE TRACER BLE TRACER BLE TRACER * Consults, Subsequent - Vero Tolentino MD - 10/15/2023 6:38 AM TROUBLE TRACER Images from the original note were not [...] was obtained. Prior to beginning the procedure, [place] Protocol was performed to confirm the patient's [...] or concerns, please page Urology through the oxygraph operator. Vero Tolentino MD 10/14/2023 Cosigned by Fredrick Mcneil MD at 10/17/2023 5:10 PM TROUBLE TRACER BLE TRACER BLE TRACER BLE TRACER * Plan of Care - Lyn Tolliver [...] Provided comfort and safety. Nephrostomy dressing changed. BLE TRACER * Plan of Care - Sue Allison [...] pressure high, MD notified. Patient resting comfortably. BLE TRACER * Post-Procedure Note - Ana Alfaro MD - 10/14/2023 1:46 PM CST Radiology Brief Post Procedure Note Attending: Dr. Hughes Marine Fisheries Technician: Dr. Alfaro Sedation/Anesthesia: Min Sedation Pre-Op/Pre-Procedure Diagnosis: Hydronephrosis Post-Op/Post-Procedure Diagnosis: Mild hydronephrosis with blood clots in the collecting system andmoderate hydroureter Procedure Performed: Right percutaneous PCN placement Procedure Findings: Successful PCN placement Complications: None Estimated Blood Loss: < 30 ml Specimens: 10 ml aspirate sent to the lab Condition: Stable Full report to follow. BLE TRACER * Pre-Procedure Note - Ana Alfaro MD [...] Date Allergic rhinitis Arthritis OA Cancer (CMS/HCC) ([facility]) prostate and melonomia Gastric reflux [...] chloride 0.9% infusion, 75 mL/hr, intravenous, Continuous, [facility], Last Rate: 75 mL/hr at 10/14/23 [...] been discussed with the patient and/or their inventory representative. All questions answered and they agree to proceed. BLE TRACER BLE TRACER * Plan of Care - Lyn Tolliver [...] Observed Strict intake and output. Monitored hematuria. BLE TRACER * Consults, Subsequent - Vero Tolenitno MD - 10/13/2023 5:57 PM TROUBLE TRACER Images from the original note were not [...] or concerns, please page Urology through the oxygraph operator. Vero Tolentino MD 10/13/2023 Cosigned by Fredrick Mcneil MD at 10/13/2023 11:37 PM TROUBLE TRACER BLE TRACER BLE TRACER BLE TRACER * Initial Assessments - Torey Mckenna RN - 10/13/2023 2:42 PM TROUBLE TRACER CM Initial Assessment Interview Note Information Obtained From: Patient (10/13/231439) in the room Admission Source: from ED Impression: 73 yo male admitted for UTI. Plan Includes: to establish a safe discharge plan Primary Source of Transportation: Does the patient need discharge transport arranged?: (unknown, as DC location unknown) (10/13/231439) Health Insurance Coverage: [facility] Medicare Prescription Coverage: yes [facility] [place], [place] - [address] [phone] [facility] [address] Primary Care Provider: Rl Medina DO Prior [...] Collaboration with patient, MD, direct care nurse, Rn Delivery, and other members of the health care team to assure needed interventions completed. 2. Return patient to optimal level of self-care post discharge. 3. Catalyst Unit Operator will follow for Discharge Planning - [...] with the aftercare plan. Torey Mckenna RN BLE TRACER * Hospital Course - Jimenez Henao MD - 10/13/2023 2:42 PM TROUBLE TRACER Hira Evans is a 73 y.o. male [...] ortho, his surgery as postponed to 10/23. BLE TRACER BLE TRACER BLE TRACER BLE TRACER BLE TRACER BLE TRACER BLE TRACER BLE TRACER BLE TRACER BLE TRACER BLE TRACER * Plan of Care - Js Cardenas [...] medicine. Pt currently NPO. Family at bedside. BLE TRACER * Post-Procedure Note - Ana Alfaro MD - 10/13/2023 9:46 AM CST Radiology Brief Post Procedure Note Attending: Dr. Mar Marine Fisheries Technician: Dr. Alfaro Sedation/Anesthesia: Min Sedation Pre-Op/Pre-Procedure Diagnosis: Hydroureteronephrosis with an obstructing stone Post-Op/Post-Procedure Diagnosis: Same Procedure Performed: Attempted PCN placement Procedure Findings: Non-dilated calyces with contrast washing down the ureter. Complications: None Estimated Blood Loss: None Specimens: None Condition: Stable Full report to follow. BLE TRACER * Pre-Procedure Note - Ana Alfaro MD [...] been discussed with the patient and/or their inventory representative. All questions answered and they agree to proceed. BLE TRACER * Assessment & Plan Note - Severo Merlos MD - 10/13/2023 5:39 AM TROUBLE TRACER Associated Problem(s): Prostate cancer (HCC) S/p postprostatectomy BLE TRACER * Assessment & Plan Note - Marquise Lim MD - 10/13/2023 5:36 AM TROUBLE TRACER Associated Problem(s): HTN (hypertension) Hold home irbesartan Restart diltiazem xl BLE TRACER BLE TRACER BLE TRACER * Assessment & Plan Note - Jimenez Henao MD - 10/13/2023 5:36 AM TROUBLE TRACER Associated Problem(s): Hydronephrosis with urinary obstruction due [...] though OK to de-escalate to oral regimen BLE TRACER BLE TRACER BLE TRACER BLE TRACER BLE TRACER BLE TRACER BLE TRACER BLE TRACER BLE TRACER BLE TRACER BLE TRACER BLE TRACER BLE TRACER BLE TRACER BLE TRACER * Assessment & Plan Note - Jimenez Henao MD - 10/13/2023 5:36 AM TROUBLE TRACER Associated Problem(s): Lumbar radiculopathy He has been [...] every 4 hours Surgery rescheduled to 10/23/23 BLE TRACER BLE TRACER BLE TRACER BLE TRACER BLE TRACER BLE TRACER * Assessment & Plan Note - Jimenez Henao MD - 10/13/2023 5:35 AM TROUBLE TRACER Associated Problem(s): UTI (urinary tract infection) - Complicated UTI with the presence of left ureteral stone and Pyelitis - urine culture grew E-coli which is pansusceptible. - Discussion with urology and orthopedic surgery: continue Keflex 500 mg q6hr as it appears patientwill stay in-house until OR on 10/22-10/23 -Antibiotics as above. BLE TRACER BLE TRACER BLE TRACER BLE TRACER BLE TRACER BLE TRACER * Plan of Deny - Silvana Man [...] new admit orders/call light,bed controls,meal times,televisions controls. BLE TRACER * Perioperative Nursing Note - Philip Ha RN - 10/13/2023 3:41 AM TROUBLE TRACER Pt is being signed out by Anesthesia. BLE TRACER * Op Note - Fredrick Mcneil MD [...] Consult IR for left nephrostomy tube placement BLE TRACER * ED Re-evaluation Note - Genaro Chavira MD - 10/12/2023 11:05 PM TROUBLE TRACER ED Re-evaluation TRANSITION OF CARE: I, Genaro [...] Harrington MD Kurtz, Camden Emmett, MD Resident 10/12/235 BLE TRACER documented in this encounter Plan of Treatment Pending Results Name Type Priority Associated Diagnoses Date /Time Erythrocyte sedimentation rate Lab STAT 10/12/2023 7:50 PM TROUBLE TRACER CRP (acute phase) Lab STAT 023 7:50 PM TROUBLE TRACER Basic metabolic panel Lab Routine 7:06 PM TROUBLE TRACER Phosphorus Lab Routine 10/29/2023 9:5 3 PM TROUBLE TRACER Magnesium Lab Routine 10/29/2023 9:5 3 PM TROUBLE TRACER Scheduled Orders Name Type Priority Associated Diagnoses [...] 3 VIEWS Pending Discharge 10/30/2023 9:49 AM TROUBLE TRACER EGFR Routine 10/29/2023 9:53 PM TROUBLE TRACER DIFFERENTIAL AUTO Routine 10/29/2023 9:5 3 PM TROUBLE TRACER CBC WITH AUTO DIFFERENTIAL Routine 10/29/2023 9:53 PM TROUBLE TRACER PHOSPHORUS Routine 10/29/2023 9:53 PM TROUBLE TRACER MAGNESIUM Routine 10/29/2023 9:53 PM TROUBLE TRACER BASIC METABOLIC PANEL Routine 10/29/2023 9:53 PM TROUBLE TRACER EGFR Routine 10/29/2023 4:40 AM TROUBLE TRACER DIFFERENTIAL AUTO Routine 10/29/2023 4:4 0 AM TROUBLE TRACER CBC WITH AUTO DIFFERENTIAL Routine 10/29/2023 4:40 AM TROUBLE TRACER TYPE AND SCREEN Timed 10/29/2023 4:40 AM TROUBLE TRACER PHOSPHORUS Routine 10/29/2023 4:40 AM TROUBLE TRACER MAGNESIUM Routine 10/29/2023 4:40 AM TROUBLE TRACER BASIC METABOLIC PANEL Routine 10/29/2023 4:[address] HEAD WO CONTRAST IP Routine 10/28/2023 5 :58 PM TROUBLE TRACER EGFR Routine 10/27/2023 11:32 PM TROUBLE TRACER DIFFERENTIAL AUTO Routine 10/27/2023 11:32 PM TROUBLE TRACER CBC WITH AUTO DIFFERENTIAL Routine 10/27/2023 11:32 PM TROUBLE TRACER BASIC METABOLIC PANEL Routine 10/27/2023 11:32 PM TROUBLE TRACER CBC WITHOUT DIFFERENTIAL Timed 10/27/2023 4:37 AM TROUBLE TRACER PHOSPHORUS Routine 10/27/2023 4:37 AM TROUBLE TRACER MAGNESIUM Routine 10/27/2023 4:37 AM TROUBLE TRACER EGFR Routine 10/26/2023 8:07 PM TROUBLE TRACER DIFFERENTIAL AUTO Routine 10/26/2023 8:0 7 PM TROUBLE TRACER CBC WITH AUTO DIFFERENTIAL Routine 10/26/2023 8:07 PM TROUBLE TRACER BASIC METABOLIC PANEL Routine 10/26/2023 8:07 PM TROUBLE TRACER EGFR STAT 10/26/2023 5:28 PM TROUBLE TRACER APTT STAT 10/26/2023 5:28 PM TROUBLE TRACER PROTIME-INR STAT 10/26/2023 5:28 PM TROUBLE TRACER CBC WITHOUT DIFFERENTIAL STAT 10/26/2023 5:28 PM TROUBLE TRACER CREATININE STAT 10/26/2023 5:28 PM TROUBLE TRACER DIFFERENTIAL AUTO Timed 10/26/2023 2:4 3 PM TROUBLE TRACER CBC WITH AUTO DIFFERENTIAL Timed 10/26/2023 2:43 PM TROUBLE TRACER APTT STAT 10/26/2023 11:09 AM TROUBLE TRACER TRANSFUSE RED BLOOD CELLS Timed 10/26/2023 10:02 AM TROUBLE TRACER PREPARE RBC Timed 10/26/2023 4:46 AM TROUBLE TRACER TRANSFUSE RED BLOOD CELLS Timed 10/26/2023 3:55 AM TROUBLE TRACER PREPARE RBC Timed 10/26/2023 3:03 AM TROUBLE TRACER APTT STAT 10/26/2023 2:21 AM TROUBLE TRACER CBC WITHOUT DIFFERENTIAL Timed 10/26/2023 2:21 AM TROUBLE TRACER TYPE AND SCREEN Timed 10/26/2023 2:21 AM TROUBLE TRACER PHOSPHORUS Routine 10/26/2023 2:21 AM TROUBLE TRACER MAGNESIUM Routine 10/26/2023 2:21 AM TROUBLE TRACER POTASSIUM, WHOLE BLOOD STAT 10/25/2023 10:11 PM TROUBLE TRACER CRITICAL CARE Routine 10/25/2023 9:09 PM TROUBLE TRACER Cardiac arrest (HCC) EGFR Routine 10/25/2023 8:41 PM TROUBLE TRACER DIFFERENTIAL AUTO Routine 10/25/2023 8:4 1 PM TROUBLE TRACER CBC WITH AUTO DIFFERENTIAL Routine 10/25/2023 8:41 PM TROUBLE TRACER BASIC METABOLIC PANEL Routine 10/25/2023 8:41 PM TROUBLE TRACER POCT GLUCOSE DEVICE Routine 10/25/2023 7 :22 PM TROUBLE TRACER CRITICAL CARE Routine 10/25/2023 6:45 PM TROUBLE TRACER Seizures, generalized convulsive (HCC) APTT STAT 10/25/2023 4:59 PM TROUBLE TRACER POCT GLUCOSE DEVICE Routine 10/25/2023 3 :09 PM TROUBLE TRACER MRI BRAIN EPILEPSY W WO CONTRAST IP Routine 10/25/2023 1:55 PM TROUBLE TRACER POCT GLUCOSE DEVICE Routine 10/25/2023 10:57 AM TROUBLE TRACER DIFFERENTIAL AUTO Timed 10/25/2023 10:14 AM TROUBLE TRACER CBC WITH AUTO DIFFERENTIAL Timed 10/25/2023 10:14 AM TROUBLE TRACER APTT STAT 10/25/2023 10:14 AM TROUBLE TRACER XR CHEST 1 VIEW ED Urgent/IP Urgent 10/25/2023 9:52 AM TROUBLE TRACER POCT GLUCOSE DEVICE Routine 10/25/2023 6 :58 AM TROUBLE TRACER POCT GLUCOSE DEVICE Routine 10/25/2023 3 :44 AM TROUBLE TRACER APTT STAT 10/25/2023 3:14 AM TROUBLE TRACER POCT GLUCOSE DEVICE Routine 10/24/2023 11:45 PM TROUBLE TRACER CRITICAL CARE Routine 10/24/2023 11:00 PM TROUBLE TRACER Cardiac arrest (HCC) CALCIUM, IONIZED Routine 10/24/2023 9:11 PM TROUBLE TRACER POCT GLUCOSE DEVICE Routine 10/24/2023 7 :42 PM TROUBLE TRACER EGFR Routine 10/24/2023 7:06 PM TROUBLE TRACER DIFFERENTIAL AUTO Routine 10/24/2023 7:0 6 PM TROUBLE TRACER CBC WITH AUTO DIFFERENTIAL Routine 10/24/2023 7:06 PM TROUBLE TRACER APTT Routine 10/24/2023 7:06 PM TROUBLE TRACER PROTIME-INR Routine 10/24/2023 7:06 PM TROUBLE TRACER PHOSPHORUS Routine 10/24/2023 7:06 PM TROUBLE TRACER MAGNESIUM Routine 10/24/2023 7:06 PM TROUBLE TRACER BASIC METABOLIC PANEL Routine 10/24/2023 7:06 PM TROUBLE TRACER POCT GLUCOSE DEVICE Routine 10/24/2023 2 :58 PM TROUBLE TRACER APTT STAT 10/24/2023 12:18 PM TROUBLE TRACER TRANSTHORACIC ECHO (TTE) COMPLETE W DOPPLER/CF W CONTRAST STAT 10/24/2023 11:43 AM TROUBLE TRACER POCT GLUCOSE DEVICE Routine 10/24/2023 11:04 AM TROUBLE TRACER TROPONIN I HIGH-SENSITIVITY 6-HOUR Timed 10/24/2023 9:39 AM TROUBLE TRACER TROPONIN I HIGH-SENSITIVITY Routine 10/24/2023 8:32 AM TROUBLE TRACER POCT GLUCOSE DEVICE Routine 10/24/2023 7 :31 AM TROUBLE TRACER CRITICAL CARE Routine 10/24/2023 6:48 AM TROUBLE TRACER Cardiac arrest (HCC) TROPONIN I HIGH-SENSITIVITY 2-HOUR Timed 10/24/2023 5:38 AM TROUBLE TRACER APTT STAT 10/24/2023 5:38 AM TROUBLE TRACER EEG Routine 10/24/2023 5:02 AM TROUBLE TRACER ECG 12-LEAD STAT 10/24/2023 3:44 AM TROUBLE TRACER TROPONIN I HIGH-SENSITIVITY SERIES (BASELINE, 2HR, 4HR, 6HR) Routine 10/24/2023 3:38 AM TROUBLE TRACER LACTATE Routine 10/24/2023 3:38 AM TROUBLE TRACER CRITICAL RESULT CALLBACK CARDIO CHEM Routine 10/24/2023 3:38 AM TROUBLE TRACER POCT GLUCOSE DEVICE Routine 10/24/2023 3 :25 AM TROUBLE TRACER HIV 1/2 ANTIBODY PLUS P24 ANTIGEN Routine 10/24/2023 12:20 AM TROUBLE TRACER POCT GLUCOSE DEVICE Routine 10/24/2023 12:20 AM TROUBLE TRACER APTT STAT 10/24/2023 12:20 AM TROUBLE TRACER PROTIME-INR STAT 10/24/2023 12:20 AM TROUBLE TRACER CBC WITHOUT DIFFERENTIAL STAT 10/24/2023 12:[address] CHEST PE ABDOMEN PELVIS W CONTRAST ED Urgent/IP Urgent 10/23/2023 11:[address] HEAD WO CONTRAST Critical/Life-Th reatening 10/23/2023 11:48 PM TROUBLE TRACER CRITICAL CARE Routine 10/23/2023 11:47 PM TROUBLE TRACER Cardiac arrest (HCC) DIFFERENTIAL AUTO Routine 10/23/2023 11:03 PM TROUBLE TRACER CALCIUM, IONIZED STAT 10/23/2023 11:03 PM TROUBLE TRACER CBC WITH AUTO DIFFERENTIAL Routine 10/23/2023 11:03 PM TROUBLE TRACER MANUAL DIFFERENTIAL Routine 10/23/2023 11:03 PM TROUBLE TRACER BLOOD GAS, ARTERIAL STAT 10/23/2023 11:03 PM TROUBLE TRACER EGFR STAT 10/23/2023 11:02 PM TROUBLE TRACER APTT STAT 10/23/2023 11:02 PM TROUBLE TRACER PROTIME-INR STAT 10/23/2023 11:02 PM TROUBLE TRACER PHOSPHORUS STAT 10/23/2023 11:02 PM TROUBLE TRACER MAGNESIUM STAT 10/23/2023 11:02 PM TROUBLE TRACER LIPID PANEL STAT 10/23/2023 11:02 PM TROUBLE TRACER COMPREHENSIVE METABOLIC PANEL STAT 10/23/2023 11:02 PM TROUBLE TRACER POC BLOOD GAS AND CHEMISTRIES, ARTERIAL Routine 10/23/2023 10:39 PM TROUBLE TRACER POC BLOOD GAS AND CHEMISTRIES, ARTERIAL Routine 10/23/2023 10:07 PM TROUBLE TRACER EGFR STAT 10/23/2023 9:52 PM TROUBLE TRACER CBC WITHOUT DIFFERENTIAL STAT 10/23/2023 9:52 PM TROUBLE TRACER BASIC METABOLIC PANEL STAT 10/23/2023 9:52 PM TROUBLE TRACER POC BLOOD GAS AND CHEMISTRIES, VENOUS Routine 10/23/2023 9:50 PM TROUBLE TRACER FL FLUOROSCOPY < 1 HOUR IP Routine 10/23/2023 8:45 PM TROUBLE TRACER SPINAL CORD MONITORING 10/23/2023 4:26 PM TROUBLE TRACER Lumbar radiculopathy Case Notes 10/22: Cell Saver Audit, case msg to [facility] 0905/No Special Needs OSI- 6 post, c-arm, SCM, prone view pillow, autograft, allograft (30cc cancellous chips), Globus Creo PSI, Globus Altera, Globus Sable LAMINECTOMY LUMBAR - POSTERIOR 10/23/2023 4:26 PM TROUBLE TRACER Lumbar radiculopathy Case Notes 10/22: Cell Saver Audit, case msg to [facility] 09/No Special Needs OSI- 6 post, c-arm, SCM, prone view pillow, autograft, allograft (30cc cancellous chips), Globus Creo PSI, Globus Altera, Globus Sable FUSION SPINAL - POSTERIOR LUMBAR/THORACIC WITH INSTRUMENTATION 10/23/2023 4:26 PM TROUBLE TRACER Lumbar radiculopathy Case Notes 10/22: Cell Saver Audit, case msg to [facility] 0905/No Special Needs OSI- 6 post, c-arm, SCM, prone view pillow, autograft, allograft (30cc cancellous chips), Globus Creo PSI, Globus Altera, Globus Sable EGFR Routine 10/22/2023 9:39 PM TROUBLE TRACER DIFFERENTIAL AUTO Routine 10/22/2023 9:3 9 PM TROUBLE TRACER CBC WITH AUTO DIFFERENTIAL Routine 10/22/2023 9:39 PM TROUBLE TRACER PROTIME-INR Routine 10/22/2023 9:39 PM TROUBLE TRACER TYPE AND SCREEN Timed 10/22/2023 9:39 PM TROUBLE TRACER BASIC METABOLIC PANEL Routine 10/22/2023 9:39 PM TROUBLE TRACER XR CHEST 1 VIEW IP Routine 10/22/2023 6:24 AM TROUBLE TRACER EGFR Routine 10/21/2023 10:52 PM TROUBLE TRACER DIFFERENTIAL AUTO Routine 10/21/2023 10:52 PM TROUBLE TRACER CBC WITH AUTO DIFFERENTIAL Routine 10/21/2023 10:52 PM TROUBLE TRACER BASIC METABOLIC PANEL Routine 10/21/2023 10:52 PM TROUBLE TRACER EGFR Routine 10/20/2023 9:38 PM TROUBLE TRACER DIFFERENTIAL AUTO Routine 10/20/2023 9:3 8 PM TROUBLE TRACER CBC WITH AUTO DIFFERENTIAL Routine 10/20/2023 9:38 PM TROUBLE TRACER BASIC METABOLIC PANEL Routine 10/20/2023 9:38 PM TROUBLE TRACER EGFR Routine 10/19/2023 9:11 PM TROUBLE TRACER DIFFERENTIAL AUTO Routine 10/19/2023 9:1 1 PM TROUBLE TRACER CBC WITH AUTO DIFFERENTIAL Routine 10/19/2023 9:11 PM TROUBLE TRACER BASIC METABOLIC PANEL Routine 10/19/2023 9:11 PM TROUBLE TRACER EGFR Routine 10/18/2023 9:29 PM TROUBLE TRACER DIFFERENTIAL AUTO Routine 10/18/2023 9:2 9 PM TROUBLE TRACER CBC WITH AUTO DIFFERENTIAL Routine 10/18/2023 9:29 PM TROUBLE TRACER BASIC METABOLIC PANEL Routine 10/18/2023 9:29 PM TROUBLE TRACER DEXA AXIAL SKELETON BONE DENSITY 1 OR MORE SITES IP Routine 10/18/2023 12:45 PM TROUBLE TRACER FL FLUOROSCOPY < 1 HOUR IP Routine 10/18/2023 11:27 AM TROUBLE TRACER EGFR Routine 10/17/2023 10:52 PM TROUBLE TRACER DIFFERENTIAL AUTO Routine 10/17/2023 10:52 PM TROUBLE TRACER CBC WITH AUTO DIFFERENTIAL Routine 10/17/2023 10:52 PM TROUBLE TRACER APTT Routine 10/17/2023 10:52 PM TROUBLE TRACER PROTIME-INR Routine 10/17/2023 10:52 PM TROUBLE TRACER BASIC METABOLIC PANEL Routine 10/17/2023 10:[address] UROGRAM IP Routine 10/16/2023 12:36 PM TROUBLE TRACER PERCUTANEOUS NEPHROSTOMY PCN LEFT IP Routine 10/14/2023 1:38 PM TROUBLE TRACER URINALYSIS AND REFLEX TO MICROSCOPIC AND CULTURE Routine 10/14/2023 1:35 PM TROUBLE TRACER URINALYSIS, MICROSCOPIC ONLY Routine 10/14/2023 1:35 PM TROUBLE TRACER URINE CULTURE Routine 10/14/2023 1:35 PM TROUBLE TRACER US KIDNEY COMPLETE Timed 10/14/2023 7: 15 AM TROUBLE TRACER EGFR Routine 10/14/2023 6:30 AM TROUBLE TRACER DIFFERENTIAL AUTO Routine 10/14/2023 6:3 0 AM TROUBLE TRACER CBC WITH AUTO DIFFERENTIAL Routine 10/14/2023 6:30 AM TROUBLE TRACER COMPREHENSIVE METABOLIC PANEL Routine 10/14/2023 6:30 AM TROUBLE TRACER BLOOD CULTURE Routine 10/13/2023 10:59 PM TROUBLE TRACER BLOOD CULTURE Routine 10/13/2023 11:01 AM TROUBLE TRACER FL FLUOROSCOPY < 1 HOUR ED Urgent/IP Urgent 10/13/2023 9:48 AM TROUBLE TRACER EGFR Routine 10/13/2023 6:50 AM TROUBLE TRACER DIFFERENTIAL AUTO Routine 10/13/2023 6:5 0 AM TROUBLE TRACER CBC WITH AUTO DIFFERENTIAL Routine 10/13/2023 6:50 AM TROUBLE TRACER COMPREHENSIVE METABOLIC PANEL Routine 10/13/2023 6:50 AM TROUBLE TRACER FL FLUOROSCOPY < 1 HOUR IP Routine 10/13/2023 3:00 AM TROUBLE TRACER MRI SPINE TOTAL COMPLETE W WO CONTRAST ED 10/12/2023 11:44 PM TROUBLE TRACER BLOOD CULTURE STAT 10/12/2023 9:[address] CHEST ABDOMEN PELVIS W CONTRAST ED 10/12/2023 9:00 PM TROUBLE TRACER LACTATE STAT 10/12/2023 7:50 PM TROUBLE TRACER EGFR STAT 10/12/2023 7:50 PM TROUBLE TRACER DIFFERENTIAL AUTO STAT 10/12/2023 7:5 0 PM TROUBLE TRACER URINALYSIS AND REFLEX TO MICROSCOPIC AND CULTURE STAT 10/12/2023 7:50 PM TROUBLE TRACER CBC WITH AUTO DIFFERENTIAL STAT 10/12/2023 7:50 PM TROUBLE TRACER BLOOD CULTURE STAT 10/12/2023 7:50 PM TROUBLE TRACER URINALYSIS, MICROSCOPIC ONLY STAT 10/12/2023 7:50 PM TROUBLE TRACER ERYTHROCYTE SEDIMENTATION RATE STAT 10/12/2023 7:50 PM TROUBLE TRACER URINE CULTURE STAT 10/12/2023 7:50 PM TROUBLE TRACER CRP (ACUTE PHASE) STAT 10/12/2023 7:5 0 PM TROUBLE TRACER BASIC METABOLIC PANEL STAT 10/12/2023 7:50 PM TROUBLE TRACER documented in this encounter Results * XR Spine Lumbar 2 or 3 Views (10/30/2023 9:49 AM TROUBLE TRACER) Anatomical Region Laterality Modality Spine N/A Computed Radiogr aphy 10/30/2023 10:1 9 AM TROUBLE TRACER Impressions 10/30/2023 10:25 AM TROUBLE TRACER 1. ??Posterior instrumented spinal fusion from L4 to L5 with combined interbody fusion. Dictated by: Tamia Rojas MD The radiology attending physician has personally reviewed this study, and had reviewed and/or edited this written report and agrees with it. Electronically signed by: Dmitry Navarro MD Narrative 10/30/2023 10:25 AM TROUBLE TRACER EXAMINATION: XR SPINE LUMBAR 2 OR 3 [...] signed by: Dmitry Navarro MD Rafael Rodriguez PRIVATE T[employer]OR IMG XR PROCEDURES Final Resu lt * eGFR (10/29/2023 9:53 PM TROUBLE TRACER) eGFR 85 >=60 mL/min/1. 73 m2 [facility] [...] last reviewed 2021. Blood 10/29/2023 9:53 PM TROUBLE TRACER 10/29/2023 10:11 PM TROUBLE TRACER Tia Nolan NP LAB BLOOD ORDERABLES F inal Result Performing Organization Address [facility] de Phone Number [facility] [place] [address] * Magnesium (10/29/2023 9:53 PM TROUBLE TRACER) Magnesium 1.7 1.4 - 2.5 mg/dL [facility] Blood 10/29/2023 9:53 PM TROUBLE TRACER 10/29/2023 10:11 PM TROUBLE TRACER Hayder Vu Jr., MD LAB BLOOD ORDERABLE S Final Result Performing Organization Address [facility] de Phone Number [facility] [place] [address] * Phosphorus (10/29/2023 9:53 PM TROUBLE TRACER) Phosphorus, pl 2.6 2.3 - 4.5 mg/dL [facility] Blood 10/29/2023 9:53 PM TROUBLE TRACER 10/29/2023 10:11 PM TROUBLE TRACER Hayder Vu Jr., MD LAB BLOOD ORDERABLE S Final Result [facility] [place] [address] * Differential, auto (10/29/2023 9:53 PM TROUBLE TRACER) Neutrophil abs 4.9 1.5 - 6.5 K/cumm [facility] Imm gran abs 0.1 0.0 - 0.1 K/cumm [facility] Lymphocyte abs 1.3 0.8 - 3.3 K/cumm [facility] Monocyte abs 0.7 0.2 - 0.8 K/cumm [facility] Eosinophil abs 0.2 0.0 - 0.5 K/cumm [facility] Basophil abs 0.0 0.0 - 0.1 K/cumm [facility] Neutrophil pct 68.7 % [facility] Comment: Interpretive Data Percent cell count reference ranges are not reported, since discordance with absolute values may lead to misinterpretation of CBC data. Current Interpretive Data was last revised on 2018. Imm gran pct 1.0 % [facility] Comment: Interpretive Data Percent cell count reference ranges are not reported, since discordance with absolute values may lead to misinterpretation of CBC data. Current Interpretive Data was last revised on 2018. Lymphocyte pct 18.3 % [facility] Comment: Interpretive Data Percent cell count reference ranges are not reported, since discordance with absolute values may lead to misinterpretation of CBC data. Current Interpretive Data was last revised on 2018. Monocyte pct 9.7 % [facility] Comment: Interpretive Data Percent cell count reference ranges are not reported, since discordance with absolute values may lead to misinterpretation of CBC data. Current Interpretive Data was last revised on 2018. Eosinophil pct 2.2 % [facility] Comment: Interpretive Data Percent cell count reference ranges are not reported, since discordance with absolute values may lead to misinterpretation of CBC data. Current Interpretive Data was last revised on 2018. Basophil pct 0.1 % [facility] Comment: Interpretive Data Percent cell count reference ranges are not reported, since discordance with absolute values may lead to misinterpretation of CBC data. Current Interpretive Data was last revised on 2018. Blood 10/29/2023 9:53 PM TROUBLE TRACER 10/29/2023 10:11 PM TROUBLE TRACER Tia Nolan [employer]IVATE [employer] LAB BLOOD ORDERABLES F inal Result Performing Organization Address [facility] Co de Phone Number [facility] Department [place] [address] * (ABNORMAL) CBC with auto differential (10/29/2023 9:53 PM TROUBLE TRACER) [facility] WBC 7.2 3.8 - 9.9 K/cumm [facility] Hgb 9.4(L) 13.0 - 17.5 g/dL [facility] Hct 28.0(L) 38.9 - 50.3 % [facility] Plt 313 150 - 400 K/cumm [facility] MPV 10.7 9.1 - 12.3 fL [facility] RBC 3.00(L) 4.30 - 5.80 M/cumm [facility] MCV 93.3 81.3 - 96.4 fL [facility] MCH 31.3 27.1 - 33.3 pg [facility] MCHC 33.6 32.3 - 35.7 g/dL [facility] RDW CV 13.7 11.1 - 14.9 % [facility] RDW SD 46.5 35.7 - 48.1 fL [facility] NRBC abs 0.00 0.00 - 0.01 K/cumm [facility] Blood 10/29/2023 9:53 PM TROUBLE TRACER 10/29/2023 10:11 PM TROUBLE TRACER Tia Nolan [employer] LAB BLOOD ORDERABLES F inal Result Performing Organization Address [facility] Co de Phone Number [facility] [place] [address] * (ABNORMAL) Basic metabolic panel (10/29/2023 9:53 PM TROUBLE TRACER) Pathologist [facility] Sodium 137 135 - 145 mmol/L [facility] Potassium, pl 3.7 3.3 - 4.9 mmol/L [facility] Chloride 103 97 - 110 mmol/L [facility] CO2 24 22 - 32 mmol/L [facility] Anion gap 10 2 - 15 mmol/L [facility] BUN 10 6 - 25 mg/dL [facility] Creatinine 0.95 0.80 - 1.30 mg/dL [facility] Glucose 108 70 - 199 mg/dL [facility] Comment: Interpretive Data Fasting glucose >/= [...] 2022. Calcium 8.1(L) 8.5 - 10.3 mg/dL [facility] Blood 10/29/2023 9:53 PM TROUBLE TRACER 10/29/2023 10:11 PM TROUBLE TRACER us Tia Nolan [employer] LAB BLOOD ORDERABLES F inal Result [facility] [place] [address] * eGFR (10/29/2023 4:40 AM TROUBLE TRACER) [facility] eGFR >90 >=60 mL/min/1. 73 m2 [facility] Comment: Interpretive Data Reference Interval Normal [...] last reviewed 2021. Blood 10/29/2023 4:40 AM TROUBLE TRACER 10/29/2023 5:04 AM TROUBLE TRACER Tia Nolan [employer] LAB BLOOD ORDERABLES F inal Result [facility] [place] [address] * Differential, auto (10/29/2023 4:40 AM TROUBLE TRACER) Pathologist [facility] Neutrophil abs 3.6 1.5 - 6.5 K/cumm [facility] Imm gran abs 0.1 0.0 - 0.1 K/cumm [facility] Lymphocyte abs 1.0 0.8 - 3.3 K/cumm [facility] Monocyte abs 0.6 0.2 - 0.8 K/cumm [facility] Eosinophil abs 0.2 0.0 - 0.5 K/cumm [facility] Basophil abs 0.0 0.0 - 0.1 K/cumm [facility] Neutrophil pct 66.1 % [facility] Comment: Interpretive Data Percent cell count reference ranges are not reported, since discordance with absolute values may lead to misinterpretation of CBC data. Current Interpretive Data was last revised on 2018. Imm gran pct 1.1 % [facility] Comment: Interpretive Data Percent cell count reference ranges are not reported, since discordance with absolute values may lead to misinterpretation of CBC data. Current Interpretive Data was last revised on 2018. Lymphocyte pct 18.9 % [facility] Comment: Interpretive Data Percent cell count reference ranges are not reported, since discordance with absolute values may lead to misinterpretation of CBC data. Current Interpretive Data was last revised on 2018. Monocyte pct 10.4 % [facility] Comment: Interpretive Data Percent cell count reference ranges are not reported, since discordance with absolute values may lead to misinterpretation of CBC data. Current Interpretive Data was last revised on 2018. Eosinophil pct 3.1 % [facility] Comment: Interpretive Data Percent cell count reference ranges are not reported, since discordance with absolute values may lead to misinterpretation of CBC data. Current Interpretive Data was last revised on 2018. Basophil pct 0.4 % [facility] Comment: Interpretive Data Percent cell count reference ranges are not reported, since discordance with absolute values may lead to misinterpretation of CBC data. Current Interpretive Data was last revised on 2018. Blood 10/29/2023 4:40 AM TROUBLE TRACER 10/29/2023 5:05 AM TROUBLE TRACER Tia Nolan NP LAB BLOOD ORDERABLES F inal Result [facility] [address] [facility] [place] [address] * Type and screen (10/29/2023 4:40 AM TROUBLE TRACER) Jigna, indirect Negative ABO Rh O [facility] Blood 10/29/2023 4:40 AM TROUBLE TRACER 10/29/2023 5:09 AM TROUBLE TRACER Narrative [facility] - 10/29/2023 6:37 AM TROUBLE TRACER Has the patient had Daratumumab or Isatuximab in the past 6 months?->Unknown Tia Alla Nolan [employer]IVATE [employer] LAB BLOOD BANK TEST OR DERABLES Final Result Performing Organization Address [facility] de Phone Number [facility] [place] [address] * (ABNORMAL) CBC with auto differential (10/29/2023 4:40 AM TROUBLE TRACER) [facility] WBC 5.4 3.8 - 9.9 K/cumm [facility] Hgb 9.5(L) 13.0 - 17.5 g/dL [facility] Hct 27.9(L) 38.9 - 50.3 % [facility] Plt 295 150 - 400 K/cumm [facility] MPV 10.8 9.1 - 12.3 fL [facility] RBC 3.03(L) 4.30 - 5.80 M/cumm [facility] MCV 92.1 81.3 - 96.4 fL [facility] MCH 31.4 27.1 - 33.3 pg [facility] MCHC 34.1 32.3 - 35.7 g/dL [facility] RDW CV 13.6 11.1 - 14.9 % [facility] RDW SD 45.1 35.7 - 48.1 fL [facility] NRBC abs 0.00 0.00 - 0.01 K/cumm [facility] Blood 10/29/2023 4:40 AM TROUBLE TRACER 10/29/2023 5:05 AM TROUBLE TRACER Tia Nolan PRIVATE [employer] LAB BLOOD ORDERABLES F inal Result Performing Organization Address [facility]/ZIP Co de Phone Number [facility] [place] [address] * (ABNORMAL) Basic metabolic panel (10/29/2023 4:40 AM TROUBLE TRACER) [facility] Sodium 139 135 - 145 mmol/L [facility] Potassium, pl 3.5 3.3 - 4.9 mmol/L [facility] Chloride 104 97 - 110 mmol/L [facility] CO2 23 22 - 32 mmol/L [facility] Anion gap 12 2 - 15 mmol/L [facility] BUN 11 6 - 25 mg/dL [facility] Creatinine 0.88 0.80 - 1.30 mg/dL [facility] Glucose 112 70 - 199 mg/dL [facility] Comment: Interpretive Data Fasting glucose >/= [...] 2022. Calcium 8.2(L) 8.5 - 10.3 mg/dL [facility] Blood 10/29/2023 4:40 AM TROUBLE TRACER 10/29/2023 5:04 AM TROUBLE TRACER Tia Nolan [employer] BLOOD ORDER[employer]LES F inal Result [facility] [place] [address] * Phosphorus (10/29/2023 4:40 AM TROUBLE TRACER) Phosphorus, pl 2.7 2.3 - 4.5 mg/dL [facility] Blood 10/29/2023 4:40 AM TROUBLE TRACER 10/29/2023 5:05 AM TROUBLE TRACER Tia Nolan [employer] BLOOD ORDERABLES F inal Result [facility] [place] [address] * Magnesium (10/29/2023 4:40 AM TROUBLE TRACER) Magnesium 1.8 1.4 - 2.5 mg/dL [facility] Blood 10/29/2023 4:40 AM TROUBLE TRACER 10/29/2023 5:05 AM TROUBLE TRACER us Tia Gold An [employer] LAB BLOOD ORDERABLES F inal Result [facility] [address] [facility] [place] [address] * CT Head WO Contrast (10/28/2023 5:58 PM TROUBLE TRACER) Anatomical Region Laterality Modality Head and Neck N/A Computed Tomogra phy 10/28/2023 8:46 PM TROUBLE TRACER Impressions 10/29/2023 10:19 AM TROUBLE TRACER 1. ??Thin bilateral subdural collections along the [...] Landen Perez M.D. Narrative 10/29/2023 10:19 AM TROUBLE TRACER EXAMINATION: CT head without contrast HISTORY: Subdural [...] Final Result * eGFR (10/27/2023 11:32 PM TROUBLE TRACER) eGFR >90 >=60 mL/min/1. 73 m2 [facility] [...] reviewed 2021. Blood 10/27/2023 11:3 2 PM TROUBLE TRACER 10/28/2023 12:27 AM TROUBLE TRACER Tia Nolan [employer] LAB BLOOD ORDERABLES F inal Result [facility] [address] [facility] [address] [place] [address] * Differential, auto (10/27/2023 11:32 PM TROUBLE TRACER) Pathologist [facility] Neutrophil abs 3.9 1.5 - 6.5 K/cumm [facility] Imm gran abs 0.1 0.0 - 0.1 K/cumm [facility] Lymphocyte abs 1.2 0.8 - 3.3 K/cumm [facility] Monocyte abs 0.6 0.2 - 0.8 K/cumm [facility] Eosinophil abs 0.2 0.0 - 0.5 K/cumm [facility] Basophil abs 0.0 0.0 - 0.1 K/cumm [facility] Neutrophil pct 65.9 % [facility] Comment: Interpretive Data Percent cell count reference ranges are not reported, since discordance with absolute values may lead to misinterpretation of CBC data. Current Interpretive Data was last revised on 2018. Imm gran pct 0.8 % [facility] Comment: Interpretive Data Percent cell count reference ranges are not reported, since discordance with absolute values may lead to misinterpretation of CBC data. Current Interpretive Data was last revised on 2018. Lymphocyte pct 20.3 % [facility] Comment: Interpretive Data Percent cell count reference ranges are not reported, since discordance with absolute values may lead to misinterpretation of CBC data. Current Interpretive Data was last revised on 2018. Monocyte pct 9.6 % [facility] Comment: Interpretive Data Percent cell count reference ranges are not reported, since discordance with absolute values may lead to misinterpretation of CBC data. Current Interpretive Data was last revised on 2018. Eosinophil pct 3.2 % [facility] Comment: Interpretive Data Percent cell count reference ranges are not reported, since discordance with absolute values may lead to misinterpretation of CBC data. Current Interpretive Data was last revised on 2018. Basophil pct 0.2 % [facility] Comment: Interpretive Data Percent cell count reference ranges are not reported, since discordance with absolute values may lead to misinterpretation of CBC data. Current Interpretive Data was last revised on 2018. Blood 10/27/2023 11:3 2 PM TROUBLE TRACER 10/28/2023 12:26 AM TROUBLE TRACER us Tia Nolan [employer] LAB BLOOD ORDERABLES F inal Result [facility] [address] [facility] [address] [place] [address] * (ABNORMAL) CBC with auto differential (10/27/2023 11:32 PM TROUBLE TRACER) Pathologist [facility] WBC 6.0 3.8 - 9.9 K/cumm [facility] Hgb 8.6(L) 13.0 - 17.5 g/dL [facility] Hct 25.3(L) 38.9 - 50.3 % [facility] Plt 295 150 - 400 K/cumm [facility] MPV 11.2 9.1 - 12.3 fL [facility] RBC 2.78(L) 4.30 - 5.80 M/cumm [facility] MCV 91.0 81.3 - 96.4 fL [facility] MCH 30.9 27.1 - 33.3 pg [facility] MCHC 34.0 32.3 - 35.7 g/dL [facility] RDW CV 13.2 11.1 - 14.9 % [facility] RDW SD 44.2 35.7 - 48.1 fL [facility] NRBC abs 0.00 0.00 - 0.01 K/cumm [facility] Blood 10/27/2023 11:3 2 PM TROUBLE TRACER 10/28/2023 12:26 AM TROUBLE TRACER us Tia Nolan [employer] LAB BLOOD ORDERABLES F inal Result [facility] [address] [facility] [address] [place] [address] * (ABNORMAL) Basic metabolic panel (10/27/2023 11:32 PM TROUBLE TRACER) Sodium 135 135 - 145 mmol/L [facility] Potassium, pl 3.7 3.3 - 4.9 mmol/L [facility] Chloride 103 97 - 110 mmol/L [facility] CO2 26 22 - 32 mmol/L [facility] Anion gap 6 2 - 15 mmol/L [facility] BUN 11 6 - 25 mg/dL [facility] Creatinine 0.88 0.80 - 1.30 mg/dL [facility] Glucose 108 70 - 199 mg/dL [facility] Comment: Interpretive Data Fasting glucose >/= [...] 2022. Calcium 8.0(L) 8.5 - 10.3 mg/dL [facility] Blood 10/27/2023 11:3 2 PM TROUBLE TRACER 10/28/2023 12:27 AM TROUBLE TRACER Tia Nolan [employer] LAB BLOOD ORDERABLES F inal Result Performing Organization Address [facility] de Phone Number [facility] Department [place] [address] * Phosphorus (10/27/2023 4:37 AM TROUBLE TRACER) Pathologist [facility] Phosphorus, pl 2.5 2.3 - 4.5 mg/dL [facility] Blood 10/27/2023 4:37 AM TROUBLE TRACER 10/27/2023 4:59 AM TROUBLE TRACER Tia Nolan [employer] LAB BLOOD ORDERABLES F inal Result Performing Organization Address [facility] Phone Number [facility] Department [place] [address] * Magnesium (10/27/2023 4:37 AM TROUBLE TRACER) [facility] Magnesium 1.9 1.4 - 2.5 mg/dL [facility] Blood 10/27/2023 4:37 AM TROUBLE TRACER 10/27/2023 4:59 AM TROUBLE TRACER Tia Nolan [employer] LAB BLOOD ORDERABLES F inal Result Performing Organization Address [facility] de Phone Number [facility] [place] [address] * (ABNORMAL) CBC without differential (10/27/2023 4:37 AM TROUBLE TRACER) [facility] WBC 7.1 3.8 - 9.9 K/cumm [facility] Hgb 9.1(L) 13.0 - 17.5 g/dL [facility] Hct 26.1(L) 38.9 - 50.3 % [facility] Plt 291 150 - 400 K/cumm [facility] MPV 11.0 9.1 - 12.3 fL [facility] RBC 2.93(L) 4.30 - 5.80 M/cumm [facility] MCV 89.1 81.3 - 96.4 fL [facility] MCH 31.1 27.1 - 33.3 pg [facility] MCHC 34.9 32.3 - 35.7 g/dL [facility] RDW CV 13.4 11.1 - 14.9 % [facility] RDW SD 43.7 35.7 - 48.1 fL [facility] NRBC abs 0.00 0.00 - 0.01 K/cumm [facility] Blood 10/27/2023 4:37 AM TROUBLE TRACER 10/27/2023 5:07 AM TROUBLE TRACER Narrative [facility] - 10/27/2023 5:17 AM TROUBLE TRACER While on heparin infusion Tia Nolan NP LAB BLOOD ORDERABLES F inal Result Performing Organization Address City/[facility] Co de Phone Number [facility] [place] [address] * Transfuse RBC (10/26/2023 10:32 PM TROUBLE TRACER) Blood us Hayder Vu Jr., MD BLOOD TRANSFUSION O RDERABLES Final Result Performing Organization Address City/[facility]/ZIP Co de Phone Number [facility] [place] [address] * Transfuse RBC: 1 Units (10/26/2023 10:32 PM TROUBLE TRACER) Blood Hayder Vu Jr., MD BLOOD TRANSFUSION O RDERABLES Final Result * eGFR (10/26/2023 8:07 PM TROUBLE TRACER) [facility] eGFR >90 >=60 mL/min/1. 73 m2 [facility] Comment: Interpretive Data Reference Interval Normal [...] last reviewed 2021. Blood 10/26/2023 8:07 PM TROUBLE TRACER 10/26/2023 9:01 PM TROUBLE TRACER us Tia Nolan [employer] LAB BLOOD ORDERABLES F inal Result [facility] [address] [place] [address] * (ABNORMAL) Differential, auto (10/26/2023 8:07 PM TROUBLE TRACER) Neutrophil abs 6.7(H) 1.5 - 6.5 K/cumm [facility] Imm gran abs 0.1 0.0 - 0.1 K/cumm [facility] Lymphocyte abs 1.1 0.8 - 3.3 K/cumm [facility] Monocyte abs 0.7 0.2 - 0.8 K/cumm [facility] Eosinophil abs 0.1 0.0 - 0.5 K/cumm [facility] Basophil abs 0.0 0.0 - 0.1 K/cumm [facility] Neutrophil pct 77.6 % [facility] Comment: Interpretive Data Percent cell count reference ranges are not reported, since discordance with absolute values may lead to misinterpretation of CBC data. Current Interpretive Data was last revised on 2018. Imm gran pct 0.6 % [facility] Comment: Interpretive Data Percent cell count reference ranges are not reported, since discordance with absolute values may lead to misinterpretation of CBC data. Current Interpretive Data was last revised on 2018. Lymphocyte pct 12.5 % [facility] Comment: Interpretive Data Percent cell count reference ranges are not reported, since discordance with absolute values may lead to misinterpretation of CBC data. Current Interpretive Data was last revised on 2018. Monocyte pct 7.8 % [facility] Comment: Interpretive Data Percent cell count reference ranges are not reported, since discordance with absolute values may lead to misinterpretation of CBC data. Current Interpretive Data was last revised on 2018. Eosinophil pct 1.0 % [facility] Comment: Interpretive Data Percent cell count reference ranges are not reported, since discordance with absolute values may lead to misinterpretation of CBC data. Current Interpretive Data was last revised on 2018. Basophil pct 0.5 % [facility] Comment: Interpretive Data Percent cell count reference ranges are not reported, since discordance with absolute values may lead to misinterpretation of CBC data. Current Interpretive Data was last revised on 2018. Blood 10/26/2023 8:07 PM TROUBLE TRACER 10/26/2023 9:00 PM TROUBLE TRACER us Tia Nolan PRIVATE [employer] LAB BLOOD ORDERABLES F inal Result [facility] [address] [place] [address] * (ABNORMAL) CBC with auto differential (10/26/2023 8:07 PM TROUBLE TRACER) WBC 8.6 3.8 - 9.9 K/cumm [facility] Hgb 9.5(L) 13.0 - 17.5 g/dL [facility] Hct 27.6(L) 38.9 - 50.3 % [facility] Plt 313 150 - 400 K/cumm [facility] MPV 11.2 9.1 - 12.3 fL [facility] RBC 3.08(L) 4.30 - 5.80 M/cumm [facility] MCV 89.6 81.3 - 96.4 fL [facility] MCH 30.8 27.1 - 33.3 pg [facility] MCHC 34.4 32.3 - 35.7 g/dL [facility] RDW CV 13.3 11.1 - 14.9 % [facility] RDW SD 43.5 35.7 - 48.1 fL [facility] NRBC abs 0.00 0.00 - 0.01 K/cumm [facility] Blood 10/26/2023 8:07 PM TROUBLE TRACER 10/26/2023 9:00 PM TROUBLE TRACER us Tia Nolan PRIVATE [employer] LAB BLOOD ORDERABLES F inal Result [facility] [address] [place] [address] * (ABNORMAL) Basic metabolic panel (10/26/2023 8:07 PM TROUBLE TRACER) Sodium 137 135 - 145 mmol/L [facility] Potassium, pl 3.5 3.3 - 4.9 mmol/L [facility] Chloride 104 97 - 110 mmol/L [facility] CO2 26 22 - 32 mmol/L [facility] Anion gap 7 2 - 15 mmol/L [facility] BUN 11 6 - 25 mg/dL [facility] Creatinine 0.86 0.80 - 1.30 mg/dL [facility] Glucose 132 70 - 199 mg/dL [facility] Comment: Interpretive Data Fasting glucose >/= [...] 2022. Calcium 8.2(L) 8.5 - 10.3 mg/dL [facility] Blood 10/26/2023 8:07 PM TROUBLE TRACER 10/26/2023 9:01 PM TROUBLE TRACER us Tia Nolan PRIVATE [employer] LAB BLOOD ORDERABLES F inal Result [facility] [address] [place] [address] * eGFR (10/26/2023 5:28 PM TROUBLE TRACER) eGFR 90 >=60 mL/min/1. 73 m2 [facility] Comment: Interpretive Data Reference [...] last reviewed 2021. Blood 10/26/2023 5:28 PM TROUBLE TRACER 10/26/2023 6:00 PM TROUBLE TRACER Kasey Aamir LAB BLOOD ORDERABLES Final Resu lt Performing Organization Address [facility] Co de Phone Number [facility] [place] [address] * Creatinine (10/26/2023 5:28 PM TROUBLE TRACER) Creatinine 0.91 0.80 - 1.30 mg/dL [facility] Blood 10/26/2023 5:28 PM TROUBLE TRACER 10/26/2023 6:00 PM TROUBLE TRACER Narrative [facility] - 10/26/2023 6:31 PM TROUBLE TRACER Baseline prior to enoxaparin initiation. Result [facility] Kasey Aamir LAB BLOOD ORDERABLES Final Resu lt Performing Organization Address [facility] de Phone Number [facility] [place] [address] * (ABNORMAL) aPTT (10/26/2023 5:28 PM TROUBLE TRACER) aPTT 64(H) 28 - 38 sec [facility] Comment: Interpretive Data Heparin therapeutic range: 66.0 - 100.0 seconds. Range based on correlation with therapeutic heparin activity range of 0.3 - 0.7 Units/mL. Current interpretive data was last revised on 2023. Blood 10/26/2023 5:28 PM TROUBLE TRACER 10/26/2023 6:09 PM TROUBLE TRACER Narrative [facility] - 10/26/2023 6:18 PM TROUBLE TRACER Baseline prior to enoxaparin initiation. Kasey Aamir LAB BLOOD ORDERABLES Final Resu lt Performing Organization Address [facility] de Phone Number [facility] [address] [place] [address] * (ABNORMAL) CBC without differential (10/26/2023 5:28 PM TROUBLE TRACER) WBC 9.1 3.8 - 9.9 K/cumm [facility] Hgb 9.6(L) 13.0 - 17.5 g/dL [facility] Hct 28.3(L) 38.9 - 50.3 % [facility] Plt 321 150 - 400 K/cumm [facility] MPV 11.4 9.1 - 12.3 fL [facility] RBC 3.16(L) 4.30 - 5.80 M/cumm [facility] MCV 89.6 81.3 - 96.4 fL [facility] MCH 30.4 27.1 - 33.3 pg [facility] MCHC 33.9 32.3 - 35.7 g/dL [facility] RDW CV 13.2 11.1 - 14.9 % [facility] RDW SD 43.6 35.7 - 48.1 fL [facility] NRBC abs 0.00 0.00 - 0.01 K/cumm [facility] Blood 10/26/2023 5:28 PM TROUBLE TRACER 10/26/2023 6:01 PM TROUBLE TRACER Narrative [facility] - 10/26/2023 6:09 PM TROUBLE TRACER Baseline prior to enoxaparin initiation. Kasey Rutledge [employer] LAB BLOOD ORDERABLES Final Resu lt [facility] [address] [facility] [place] [address] * Protime-INR (10/26/2023 5:28 PM TROUBLE TRACER) PT 13.2 10.3 - 13.7 sec [facility] INR 1.16 0.90 - 1.20 [facility] Comment: Interpretive data Oral anticoagulant therapeutic ranges: Venous thromboembolism prophylaxis or treatment: 2.0-3.0 CARDIOLOGY Standard range: 2.0-3.0 High-intensity range: 2.5-3.5 Refer to indication-specific guidelines for appropriate target ranges for prosthetic heart valve replacement. Current interpretive data was last revised on 2019. Blood 10/26/2023 5:28 PM TROUBLE TRACER 10/26/2023 6:09 PM TROUBLE TRACER Narrative [facility] - 10/26/2023 6:18 PM TROUBLE TRACER Baseline prior to enoxaparin initiation. us Kasey Rutledge NP LAB BLOOD ORDERABLES Final Resu lt [facility] [address] [place] [address] * (ABNORMAL) Differential, auto (10/26/2023 2:43 PM TROUBLE TRACER) Neutrophil abs 8.1(H) 1.5 - 6.5 K/cumm [facility] Imm gran abs 0.1 0.0 - 0.1 K/cumm [facility] Lymphocyte abs 0.9 0.8 - 3.3 K/cumm [facility] Monocyte abs 0.7 0.2 - 0.8 K/cumm [facility] Eosinophil abs 0.2 0.0 - 0.5 K/cumm [facility] Basophil abs 0.0 0.0 - 0.1 K/cumm [facility] Neutrophil pct 81.9 % [facility] Comment: Interpretive Data Percent cell count reference ranges are not reported, since discordance with absolute values may lead to misinterpretation of CBC data. Current Interpretive Data was last revised on 2018. Imm gran pct 0.6 % [facility] Comment: Interpretive Data Percent cell count reference ranges are not reported, since discordance with absolute values may lead to misinterpretation of CBC data. Current Interpretive Data was last revised on 2018. Lymphocyte pct 9.0 % [facility] Comment: Interpretive Data Percent cell count reference ranges are not reported, since discordance with absolute values may lead to misinterpretation of CBC data. Current Interpretive Data was last revised on 2018. Monocyte pct 6.6 % [facility] Comment: Interpretive Data Percent cell count reference ranges are not reported, since discordance with absolute values may lead to misinterpretation of CBC data. Current Interpretive Data was last revised on 2018. Eosinophil pct 1.5 % [facility] Comment: Interpretive Data Percent cell count reference ranges are not reported, since discordance with absolute values may lead to misinterpretation of CBC data. Current Interpretive Data was last revised on 2018. Basophil pct 0.4 % [facility] Comment: Interpretive Data Percent cell count reference ranges are not reported, since discordance with absolute values may lead to misinterpretation of CBC data. Current Interpretive Data was last revised on 2018. Blood 10/26/2023 2:43 PM TROUBLE TRACER 10/26/2023 2:56 PM TROUBLE TRACER us Kasey Rutledge NP LAB BLOOD ORDERABLES Final Resu lt [facility] [address] [facility] [place] [address] * (ABNORMAL) CBC with auto differential (10/26/2023 2:43 PM TROUBLE TRACER) WBC 9.9 3.8 - 9.9 K/cumm [facility] Hgb 9.3(L) 13.0 - 17.5 g/dL [facility] Hct 27.2(L) 38.9 - 50.3 % [facility] Plt 310 150 - 400 K/cumm [facility] MPV 11.0 9.1 - 12.3 fL [facility] RBC 3.01(L) 4.30 - 5.80 M/cumm [facility] MCV 90.4 81.3 - 96.4 fL [facility] MCH 30.9 27.1 - 33.3 pg [facility] MCHC 34.2 32.3 - 35.7 g/dL [facility] RDW CV 13.0 11.1 - 14.9 % [facility] RDW SD 43.3 35.7 - 48.1 fL [facility] NRBC abs 0.00 0.00 - 0.01 K/cumm [facility] Blood 10/26/2023 2:43 PM TROUBLE TRACER 10/26/2023 2:56 PM TROUBLE TRACER Narrative [facility] - 10/26/2023 3:05 PM TROUBLE TRACER Please draw one hour after second unit of PRBC's Kasey Rutledge [employer] LAB BLOOD ORDERABLES Final Resu lt Performing Organization Address [facility] de Phone Number [facility] [place] [address] * Transfuse RBC (10/26/2023 1:41 PM TROUBLE TRACER) Blood Hayder Vu Jr., MD BLOOD TRANSFUSION O RDERABLES Final Result Performing Organization Address [facility] de Phone Number [facility] [place] [address] * Transfuse RBC: 1 Units (10/26/2023 1:41 PM TROUBLE TRACER) Blood Hayder Vu Jr., MD BLOOD TRANSFUSION O RDERABLES Final Result * (ABNORMAL) aPTT (10/26/2023 11:09 AM TROUBLE TRACER) aPTT 74(H) 28 - 38 sec [facility] Comment: Interpretive Data Heparin therapeutic range: 66.0 - 100.0 seconds. Range based on correlation with therapeutic heparin activity range of 0.3 - 0.7 Units/mL. Current interpretive data was last revised on 2023. Blood 10/26/2023 11:0 9 AM TROUBLE TRACER 10/26/2023 11:38 AM TROUBLE TRACER Ca Ruano MD PhD LAB BLOOD ORDERABLES Final Result Performing Organization Address [facility] Co de Phone Number [facility] [place] [address] * Prepare RBC: 1 Units (10/26/2023 4:46 AM TROUBLE TRACER) Product code [id number] Unit Number [id number] * [facility] Product Blood Type OPOS [facility] Dispense Status PRESUMED TRANSFUSED [facility] Blood 10/26/2023 4:46 AM TROUBLE TRACER 10/26/2023 4:45 AM TROUBLE TRACER Narrative [facility] - 10/26/2023 4:02 PM TROUBLE TRACER Are special requirements needed? (All products are leukoreduced and CMV- safe)- >No Date required:-20231026 LRRBC # of [id number] Reasons:-Active bleeding, Hgb <8 g/dL} Hayder Vu Jr., MD BLOOD BANK PRODUCT ORDERABLES Final Result Performing Organization Address [facility] de Phone Number [facility] [place] [address] * Prepare RBC: 1 Units (10/26/2023 3:03 AM TROUBLE TRACER) Product code [id number] Unit Number [id number] [facility] Product Blood Type OPOS [facility] Dispense Status PRESUMED TRANSFUSED [facility] Blood 10/26/2023 3:03 AM TROUBLE TRACER 10/26/2023 3:03 AM TROUBLE TRACER Narrative [facility] - 10/26/2023 4:01 PM TROUBLE TRACER Are special requirements needed? (All products are leukoreduced and CMV- safe)- >No Date required:-20231026 LRRBC # of [id number] Reasons:-Hgb <7 g/dL} Hayder Vu Jr., MD BLOOD BANK PRODUCT ORDERABLES Final Result Performing Organization Address [facility] [place] [address] * (ABNORMAL) aPTT (10/26/2023 2:21 AM TROUBLE TRACER) Pathologist [facility] aPTT 58(H) 28 - 38 sec [facility] Comment: Interpretive Data Heparin therapeutic range: 66.0 - 100.0 seconds. Range based on correlation with therapeutic heparin activity range of 0.3 - 0.7 Units/mL. Current interpretive data was last revised on 2023. Blood 10/26/2023 2:21 AM TROUBLE TRACER 10/26/2023 2:32 AM TROUBLE TRACER Narrative [facility] - 10/26/2023 2:54 AM TROUBLE TRACER Draw STAT PTT 6 hrs after initiation of heparin infusion, draw STAT PTT 6 hours after each dose change, and every 6 hours until 2 consecutive PTTs are within therapeutic range. Once two consecutive PTT's are therapeutic (66-100 seconds), then draw PTT every AM until heparin is discontinued. us Hayder Vu Jr., MD LAB BLOOD ORDERABLE S Final Result Performing Organization Address City/[facility]/ZIP Co de Phone Number [facility] [place] [address] * Type and screen (10/26/2023 2:21 AM TROUBLE TRACER) [facility] Jigna, indirect Negative ABO Rh O Positive [facility] Blood 10/26/2023 2:21 AM TROUBLE TRACER 10/26/2023 2:32 AM TROUBLE TRACER Narrative [facility] - 10/26/2023 3:20 AM TROUBLE TRACER Has the patient had Daratumumab or Isatuximab in the past 6 months?->Unknown us Tia Nolan NP LAB BLOOD BANK TEST OR DERABLES Final Result Performing Organization Address City/[facility]/ZIP Co de Phone Number [facility] [place] [address] * (ABNORMAL) CBC without differential (10/26/2023 2:21 AM TROUBLE TRACER) [facility] WBC 9.0 3.8 - 9.9 K/cumm [facility] Hgb 6.7(L) 13.0 - 17.5 g/dL [facility] Hct 19.6(L) 38.9 - 50.3 % [facility] Plt 297 150 - 400 K/cumm [facility] MPV 10.9 9.1 - 12.3 fL [facility] RBC 2.15(L) 4.30 - 5.80 M/cumm [facility] MCV 91.2 81.3 - 96.4 fL [facility] MCH 31.2 27.1 - 33.3 pg [facility] MCHC 34.2 32.3 - 35.7 g/dL [facility] RDW CV 12.5 11.1 - 14.9 % [facility] RDW SD 41.9 35.7 - 48.1 fL [facility] NRBC abs 0.00 0.00 - 0.01 K/cumm [facility] Blood 10/26/2023 2:21 AM TROUBLE TRACER 10/26/2023 2:40 AM TROUBLE TRACER Tia Nolan [employer]IVATE [employer] LAB BLOOD ORDERABLES F inal Result Performing Organization Address City/[facility] Co de Phone Number [facility] [place] [address] * Phosphorus (10/26/2023 2:21 AM TROUBLE TRACER) [facility] Phosphorus, pl 2.3 2.3 - 4.5 mg/dL [facility] Blood 10/26/2023 2:21 AM TROUBLE TRACER 10/26/2023 2:40 AM TROUBLE TRACER Tia Nolan PRIVATE [employer] LAB BLOOD ORDERABLES F inal Result Performing Organization Address City/[facility]/ZIP Co de Phone Number [facility] [place] [address] * Magnesium (10/26/2023 2:21 AM TROUBLE TRACER) [facility] Magnesium 1.8 1.4 - 2.5 mg/dL [facility] Blood 10/26/2023 2:21 AM TROUBLE TRACER 10/26/2023 2:40 AM TROUBLE TRACER Tia Nolan PRIVATE [employer] LAB BLOOD ORDERABLES F inal Result Performing Organization Address [facility] Co de Phone Number [facility] [place] [address] * Potassium, whole blood (10/25/2023 10:11 PM TROUBLE TRACER) Pathologist [facility] Potassium, bld 3.5 3.3 - 4.9 mmol/L [facility] Blood 10/25/2023 10:1 1 PM TROUBLE TRACER 10/25/2023 10:19 PM TROUBLE TRACER Tia Nolan PRIVATE [employer] LAB BLOOD ORDERABLES F inal Result Performing Organization Address [facility] de Phone Number [facility] [place] [address] * Critical Care (10/25/2023 9:09 PM TROUBLE TRACER) Narrative Wilder Arceo Jr., MD - 10/25/2023 9:09 PM TROUBLE TRACER Tia Nolan NP ? 10/26/2023 12:17 AM [...] plan with the patient's team and other medical/hr consultant staff. This time was in addition [...] Final Result * eGFR (10/25/2023 8:41 PM TROUBLE TRACER) eGFR >90 >=60 mL/min/1. 73 m2 [facility] [...] last reviewed 2021. Blood 10/25/2023 8:41 PM TROUBLE TRACER 10/25/2023 8:58 PM TROUBLE TRACER us Oneyda Foley NP LAB BLOOD ORDERABLES Final Res ult [facility] [address] [facility] [place] [address] * (ABNORMAL) Differential, auto (10/25/2023 8:41 PM TROUBLE TRACER) Neutrophil abs 7.3(H) 1.5 - 6.5 K/cumm [facility] Imm gran abs 0.1 0.0 - 0.1 K[facility] Lymphocyte abs 1.6 0.8 - 3.3 K/cumm [facility] Monocyte abs 0.8 0.2 - 0.8 K/cumm [facility] Eosinophil abs 0.3 0.0 - 0.5 K/cumm [facility] Basophil abs 0.0 0.0 - 0.1 K/cumm [facility] Neutrophil pct 72.9 % [facility] Comment: Interpretive Data Percent cell count reference ranges are not reported, since discordance with absolute values may lead to misinterpretation of CBC data. Current Interpretive Data was last revised on 2018. Imm gran pct 0.5 % [facility] Comment: Interpretive Data Percent cell count reference ranges are not reported, since discordance with absolute values may lead to misinterpretation of CBC data. Current Interpretive Data was last revised on 2018. Lymphocyte pct 15.7 % [facility] Comment: Interpretive Data Percent cell count reference ranges are not reported, since discordance with absolute values may lead to misinterpretation of CBC data. Current Interpretive Data was last revised on 2018. Monocyte pct 7.8 % [facility] Comment: Interpretive Data Percent cell count reference ranges are not reported, since discordance with absolute values may lead to misinterpretation of CBC data. Current Interpretive Data was last revised on 2018. Eosinophil pct 2.7 % [facility] Comment: Interpretive Data Percent cell count reference ranges are not reported, since discordance with absolute values may lead to misinterpretation of CBC data. Current Interpretive Data was last revised on 2018. Basophil pct 0.4 % [facility] Comment: Interpretive Data Percent cell count reference ranges are not reported, since discordance with absolute values may lead to misinterpretation of CBC data. Current Interpretive Data was last revised on 2018. Blood 10/25/2023 8:41 PM TROUBLE TRACER 10/25/2023 8:58 PM TROUBLE TRACER us Oneyda Foley [employer]IVATE [employer] LAB BLOOD ORDERABLES Final Res ult Performing Organization Address City/[facility]/ZIP Co de Phone Number [facility] [place] [address] * (ABNORMAL) CBC with auto differential (10/25/2023 8:41 PM TROUBLE TRACER) Pathologist [facility] WBC 10.0(H) 3.8 - 9.9 K/cumm [facility] Hgb 7.0(L) 13.0 - 17.5 g/dL [facility] Hct 19.7(L) 38.9 - 50.3 % [facility] Plt 320 150 - 400 K/cumm [facility] MPV 11.6 9.1 - 12.3 fL [facility] RBC 2.14(L) 4.30 - 5.80 M/cumm [facility] MCV 92.1 81.3 - 96.4 fL [facility] MCH 32.7 27.1 - 33.3 pg [facility] MCHC 35.5 32.3 - 35.7 g/dL [facility] RDW CV 12.6 11.1 - 14.9 % [facility] RDW SD 42.2 35.7 - 48.1 fL [facility] NRBC abs 0.00 0.00 - 0.01 K/cumm [facility] Blood 10/25/2023 8:41 PM TROUBLE TRACER 10/25/2023 8:58 PM TROUBLE TRACER us Tia Nolan [employer]IVATE [employer] LAB BLOOD ORDERABLES F inal Result Performing Organization Address City/[facility]/ZIP Co de Phone Number [facility] [place] [address] * (ABNORMAL) Basic metabolic panel (10/25/2023 8:41 PM TROUBLE TRACER) Pathologist [facility] Sodium 133(L) 135 - 145 mmol/L [facility] Potassium, pl See Comment 3.3 - 4.9 mmol/L [facility] Comment:Credited; Hemolyzed Specimen Chloride 103 97 - 110 mmol/L [facility] CO2 26 22 - 32 mmol/L [facility] Anion gap 4 2 - 15 mmol/L [facility] BUN 13 6 - 25 mg/dL [facility] Creatinine 0.86 0.80 - 1.30 mg/dL [facility] Glucose 157 70 - 199 mg/dL [facility] Comment: Interpretive Data Fasting glucose >/= [...] 2022. Calcium 7.8(L) 8.5 - 10.3 mg/dL [facility] Blood 10/25/2023 8:41 PM TROUBLE TRACER 10/25/2023 8:58 PM TROUBLE TRACER us Tia Nolan NP LAB BLOOD ORDERABLES F inal Result [facility] [place] [address] * POCT glucose (10/25/2023 7:22 PM TROUBLE TRACER) [facility] Signature Glucose, POC 162 70 - 199 mg/dL [facility] Blood 10/25/2023 7:22 PM TROUBLE TRACER 10/25/2023 7:22 PM TROUBLE TRACER us Hayder Vu Jr., MD LAB POCT ORDERABLES - DEVICE Final Result Performing Organization Address [facility]/ZIP Co de Phone Number [facility] [place] [address] * Critical Care (10/25/2023 6:45 PM TROUBLE TRACER) Narrative Luana Brady NP - 10/25/2023 6:45 PM TROUBLE TRACER Luana Brady NP ? 10/25/2023 ??6:45 PM [...] plan with the patient's team and other medical/hr consultant staff. This time was in addition to and separate from care provided by other practitioners on this day of service. ?? us Luana Brady NP IN CLINIC/BEDSIDE ORDERABLES Final Result * (ABNORMAL) aPTT (10/25/2023 4:59 PM TROUBLE TRACER) aPTT 62(H) 28 - 38 sec [facility] Comment: Interpretive Data Heparin therapeutic range: 66.0 - 100.0 seconds. Range based on correlation with therapeutic heparin activity range of 0.3 - 0.7 Units/mL. Current interpretive data was last revised on 2023. Blood 10/25/2023 4:59 PM TROUBLE TRACER 10/25/2023 5:12 PM TROUBLE TRACER Narrative [facility] - 10/25/2023 5:34 PM TROUBLE TRACER Draw STAT PTT 6 hrs after initiation of heparin infusion, draw STAT PTT 6 hours after each dose change, and every 6 hours until 2 consecutive PTTs are within therapeutic range. Once two consecutive PTT's are therapeutic (66-100 seconds), then draw PTT every AM until heparin is discontinued. us Hayder Vu Jr., MD LAB BLOOD ORDERABLE S Final Result [facility] [address] [facility] [place] [address] * POCT glucose (10/25/2023 3:09 PM TROUBLE TRACER) Glucose, POC 118 70 - 199 mg/dL [facility] Blood 10/25/2023 3:09 PM TROUBLE TRACER 10/25/2023 3:09 PM TROUBLE TRACER us Hayder Vu Jr., MD LAB POCT ORDERABLES - DEVICE Final Result [facility] [address] [facility] [address] [place] [address] * MRI Brain Epilepsy W WO Contrast (10/25/2023 1:55 PM TROUBLE TRACER) Anatomical Region Laterality Modality Head and Neck N/A Magnetic Resonan ce 10/25/2023 2:57 PM TROUBLE TRACER Impressions 10/25/2023 3:42 PM TROUBLE TRACER 1. ??Thin bilateral convexity subdural hematomas, not [...] Francia Schmitz M.D. Narrative 10/25/2023 3:42 PM TROUBLE TRACER EXAMINATION: Magnetic resonance imaging (MRI) of the [...] Result * POCT glucose (10/25/2023 10:57 AM TROUBLE TRACER) [facility] Glucose, POC 195 70 - 199 mg/dL [facility] Blood 10/25/2023 10:5 7 AM TROUBLE TRACER 10/25/2023 10:57 AM TROUBLE TRACER Hayder Vu Jr., MD LAB POCT ORDERABLES - DEVICE Final Result [facility] [address] [facility] [address] [place] [address] * (ABNORMAL) Differential, auto (10/25/2023 10:14 AM TROUBLE TRACER) [facility] Neutrophil abs 10.6(H) 1.5 - 6.5 K/cumm [facility] Imm gran abs 0.1 0.0 - 0.1 K/cumm [facility] Lymphocyte abs 1.5 0.8 - 3.3 K/cumm [facility] Monocyte abs 0.9(H) 0.2 - 0.8 K/cumm [facility] Eosinophil abs 0.2 0.0 - 0.5 K/cumm [facility] Basophil abs 0.1 0.0 - 0.1 K/cumm [facility] Neutrophil pct 79.5 % [facility] Comment: Interpretive Data Percent cell count reference ranges are not reported, since discordance with absolute values may lead to misinterpretation of CBC data. Current Interpretive Data was last revised on 2018. Imm gran pct 0.5 % [facility] Comment: Interpretive Data Percent cell [...] on 2018. Blood 10/25/2023 10:1 4 AM TROUBLE TRACER 10/25/2023 10:27 AM TROUBLE TRACER Hayder Vu Jr., MD LAB BLOOD ORDERABLE S Final Result [facility] [address] [facility] [place] [address] * (ABNORMAL) aPTT (10/25/2023 10:14 AM TROUBLE TRACER) aPTT 60(H) 28 - 38 sec [facility] Comment: Interpretive Data Heparin therapeutic range: 66.0 - 100.0 seconds. Range based on correlation with therapeutic heparin activity range of 0.3 - 0.7 Units/mL. Current interpretive data was last revised on 2023. Blood 10/25/2023 10:1 4 AM TROUBLE TRACER 10/25/2023 10:27 AM TROUBLE TRACER Narrative [facility] - 10/25/2023 10:56 AM TROUBLE TRACER Draw STAT PTT 6 hrs after initiation of heparin infusion, draw STAT PTT 6 hours after each dose change, and every 6 hours until 2 consecutive PTTs are within therapeutic range. Once two consecutive PTT's are therapeutic (66-100 seconds), then draw PTT every AM until heparin is discontinued. Hayder Vu Jr., MD LAB BLOOD ORDERABLE S Final Result [facility] [address] [facility] [address] [place] [address] * (ABNORMAL) CBC with auto differential (10/25/2023 10:14 AM TROUBLE TRACER) [facility] WBC 13.3(H) 3.8 - 9.9 K/cumm [facility] Hgb 8.2(L) 13.0 - 17.5 g/dL [facility] Hct 24.1(L) 38.9 - 50.3 % [facility] Plt 367 150 - 400 K/cumm [facility] MPV 11.0 9.1 - 12.3 fL [facility] RBC 2.57(L) 4.30 - 5.80 M/cumm [facility] MCV 93.8 81.3 - 96.4 fL [facility] MCH 31.9 27.1 - 33.3 pg [facility] MCHC 34.0 32.3 - 35.7 g/dL [facility] RDW CV 12.4 11.1 - 14.9 % [facility] RDW SD 43.0 35.7 - 48.1 fL [facility] NRBC abs 0.00 0.00 - 0.01 K/cumm [facility] Blood 10/25/2023 10:1 4 AM TROUBLE TRACER 10/25/2023 10:27 AM TROUBLE TRACER Hayder Vu Jr., MD LAB BLOOD ORDERABLE S Final Result Performing Organization Address City/[facility]/ZIP Co de Phone Number [facility] [address] [place] [address] * XR Chest 1 View (10/25/2023 9:52 AM TROUBLE TRACER) Anatomical Region Laterality Modality Body, Chest N/A Computed Radiogr aphy 10/25/2023 11:1 3 AM TROUBLE TRACER Impressions 10/25/2023 11:23 AM TROUBLE TRACER Comparison made to chest radiograph 10/22/2023 at [...] Keely Williamson M.D. Narrative 10/25/2023 11:23 AM TROUBLE TRACER EXAMINATION: 1 view chest radiograph Procedure Note [...] Result * POCT glucose (10/25/2023 6:58 AM TROUBLE TRACER) Glucose, POC 129 70 - 199 mg/dL [facility] Blood 10/25/2023 6:58 AM TROUBLE TRACER 10/25/2023 6:58 AM TROUBLE TRACER Hayder Vu Jr., MD LAB POCT ORDERABLES - DEVICE Final Result Performing Organization Address [facility] Co de Phone Number [facility] [place] [address] * POCT glucose (10/25/2023 3:44 AM TROUBLE TRACER) [facility] Glucose, POC 102 70 - 199 mg/dL [facility] Blood 10/25/2023 3:44 AM TROUBLE TRACER 10/25/2023 3:44 AM TROUBLE TRACER us Hayder Vu Jr., MD LAB POCT ORDERABLES - DEVICE Final Result Performing Organization Address [facility] [place] [address] * (ABNORMAL) aPTT (10/25/2023 3:14 AM TROUBLE TRACER) [facility] aPTT 47(H) 28 - 38 sec [facility] Comment: Interpretive Data Heparin therapeutic range: 66.0 - 100.0 seconds. Range based on correlation with therapeutic heparin activity range of 0.3 - 0.7 Units/mL. Current interpretive data was last revised on 2023. Blood 10/25/2023 3:14 AM TROUBLE TRACER 10/25/2023 3:25 AM TROUBLE TRACER Narrative [facility] - 10/25/2023 3:47 AM TROUBLE TRACER Draw STAT PTT 6 hrs after initiation of heparin infusion, draw STAT PTT 6 hours after each dose change, and every 6 hours until 2 consecutive PTTs are within therapeutic range. Once two consecutive PTT's are therapeutic (66-100 seconds), then draw PTT every AM until heparin is discontinued. us Hayder Vu Jr., MD LAB BLOOD ORDERABLE S Final Result Performing Organization Address [facility] Co de Phone Number [facility] [place] [address] * POCT glucose (10/24/2023 11:45 PM TROUBLE TRACER) Glucose, POC 141 70 - 199 mg/dL [facility] Blood 10/24/2023 11:4 5 PM TROUBLE TRACER 10/24/2023 11:45 PM TROUBLE TRACER Hayder Vu Jr., MD LAB POCT ORDERABLES - DEVICE Final Result [facility] [address] [place] [address] * Critical Care (10/24/2023 11:00 PM TROUBLE TRACER) Narrative Wilder Arceo Jr., MD - 10/24/2023 11:00 PM TROUBLE TRACER Wilder Arceo Jr., MD ? 10/25/2023 12:47 [...] plan with the ICU team and other medical/hr consultant staff, making frequent assessments and decisions [...] Acute pain/acute postoperative pain and Seizure ?? [id number] mycardial infarction (Non-STEMI) and Cardiac arrest ?? [...] * (ABNORMAL) Calcium, ionized (10/24/2023 9:11 PM TROUBLE TRACER) Pathologist [facility] Calcium, Ionized 4.38(L) 4.50 - 5.10 mg/dL [facility] Blood 10/24/2023 9:11 PM TROUBLE TRACER 10/24/2023 9:18 PM TROUBLE TRACER Hayder Vu Jr., MD LAB BLOOD ORDERABLE S Final Result Performing Organization Address [facility] Co de Phone Number [facility] [place] [address] * POCT glucose (10/24/2023 7:42 PM TROUBLE TRACER) [facility] Glucose, POC 122 70 - 199 mg/dL [facility] Blood 10/24/2023 7:42 PM TROUBLE TRACER 10/24/2023 7:42 PM TROUBLE TRACER Hayder Vu Jr., MD LAB POCT ORDERABLES - DEVICE Final Result Performing Organization Address City/[facility]/ZIP Co de Phone Number [facility] [place] [address] * (ABNORMAL) Basic metabolic panel (10/24/2023 7:06 PM TROUBLE TRACER) [facility] Sodium 136 135 - 145 mmol/L [facility] Potassium, pl 3.7 3.3 - 4.9 mmol/L [facility] Chloride 104 97 - 110 mmol/L [facility] CO2 25 22 - 32 mmol/L [facility] Anion gap 7 2 - 15 mmol/L [facility] BUN 13 6 - 25 mg/dL [facility] Creatinine 0.94 0.80 - 1.30 mg/dL [facility] Glucose 126 70 - 199 mg/dL [facility] Comment: Interpretive Data Fasting glucose >/= [...] 2022. Calcium 8.1(L) 8.5 - 10.3 mg/dL [facility] Blood 10/24/2023 7:06 PM TROUBLE TRACER 10/24/2023 7:12 PM TROUBLE TRACER Hayder Vu Jr., MD LAB BLOOD ORDERABLE S Final Result [facility] [address] [place] [address] * eGFR (10/24/2023 7:06 PM TROUBLE TRACER) eGFR 86 >=60 mL/min/1. 73 m2 [facility] Comment: Interpretive Data Reference Interval Normal [...] last reviewed 2021. Blood 10/24/2023 7:06 PM TROUBLE TRACER 10/24/2023 7:16 PM TROUBLE TRACER us Hayder Vu Jr., MD LAB BLOOD ORDERABLE S Final Result [facility] [address] [facility] [address] [place] [address] * (ABNORMAL) Differential, auto (10/24/2023 7:06 PM TROUBLE TRACER) Neutrophil abs 10.4(H) 1.5 - 6.5 K/cumm [facility] Imm gran abs 0.1 0.0 - 0.1 K/cumm [facility] Lymphocyte abs 1.2 0.8 - 3.3 K/cumm [facility] Monocyte abs 0.9(H) 0.2 - 0.8 K/cumm [facility] Eosinophil abs 0.1 0.0 - 0.5 K/cumm [facility] Basophil abs 0.1 0.0 - 0.1 K/cumm [facility] Neutrophil pct 82.0 % [facility] Comment: Interpretive Data Percent cell count reference ranges are not reported, since discordance with absolute values may lead to misinterpretation of CBC data. Current Interpretive Data was last revised on 2018. Imm gran pct 0.5 % [facility] Comment: Interpretive Data Percent cell count reference ranges are not reported, since discordance with absolute values may lead to misinterpretation of CBC data. Current Interpretive Data was last revised on 2018. Lymphocyte pct 9.7 % [facility] Comment: Interpretive Data Percent cell count reference ranges are not reported, since discordance with absolute values may lead to misinterpretation of CBC data. Current Interpretive Data was last revised on 2018. Monocyte pct 6.9 % [facility] Comment: Interpretive Data Percent cell count reference ranges are not reported, since discordance with absolute values may lead to misinterpretation of CBC data. Current Interpretive Data was last revised on 2018. Eosinophil pct 0.4 % [facility] Comment: Interpretive Data Percent cell count reference ranges are not reported, since discordance with absolute values may lead to misinterpretation of CBC data. Current Interpretive Data was last revised on 2018. Basophil pct 0.5 % [facility] Comment: Interpretive Data Percent cell count reference ranges are not reported, since discordance with absolute values may lead to misinterpretation of CBC data. Current Interpretive Data was last revised on 2018. Blood 10/24/2023 7:06 PM TROUBLE TRACER 10/24/2023 7:16 PM TROUBLE TRACER Oneyda Foley [employer]IVATE [employer] LAB BLOOD ORDERABLES Final Res ult [facility] [place] [address] * Phosphorus (10/24/2023 7:06 PM TROUBLE TRACER) Phosphorus, pl 3.3 2.3 - 4.5 mg/dL [facility] Blood 10/24/2023 7:06 PM TROUBLE TRACER 10/24/2023 7:12 PM TROUBLE TRACER Tia Nolan PRIVATE [employer] LAB BLOOD ORDERABLES F inal Result [facility] [place] [address] * Magnesium (10/24/2023 7:06 PM TROUBLE TRACER) Magnesium 2.1 1.4 - 2.5 mg/dL [facility] Blood 10/24/2023 7:06 PM TROUBLE TRACER 10/24/2023 7:12 PM TROUBLE TRACER Tia Nolan PR[employer] LAB BLOOD ORDERABLES F inal Result Performing Organization Address [facility] Co de Phone Number [facility] [place] [address] * (ABNORMAL) CBC with auto differential (10/24/2023 7:06 PM TROUBLE TRACER) Pathologist [facility] WBC 12.7(H) 3.8 - 9.9 K/cumm [facility] Hgb 7.6(L) 13.0 - 17.5 g/dL [facility] Hct 22.1(L) 38.9 - 50.3 % [facility] Plt 332 150 - 400 K/cumm [facility] MPV 10.8 9.1 - 12.3 fL [facility] RBC 2.42(L) 4.30 - 5.80 M/cumm [facility] MCV 91.3 81.3 - 96.4 fL [facility] MCH 31.4 27.1 - 33.3 pg [facility] MCHC 34.4 32.3 - 35.7 g/dL [facility] RDW CV 12.5 11.1 - 14.9 % [facility] RDW SD 42.5 35.7 - 48.1 fL [facility] NRBC abs 0.00 0.00 - 0.01 K/cumm [facility] Blood 10/24/2023 7:06 PM TROUBLE TRACER 10/24/2023 7:16 PM TROUBLE TRACER Tia Nolan PRIVATE [employer] LAB BLOOD ORDERABLES F inal Result Performing Organization Address [facility]/ZIP Co de Phone Number [facility] [place] [address] * aPTT (10/24/2023 7:06 PM TROUBLE TRACER) Pathologist [facility] aPTT 35 28 - 38 sec [facility] Comment: Interpretive Data Heparin therapeutic range: 66.0 - 100.0 seconds. Range based on correlation with therapeutic heparin activity range of 0.3 - 0.7 Units/mL. Current interpretive data was last revised on 2023. Blood 10/24/2023 7:06 PM TROUBLE TRACER 10/24/2023 7:13 PM TROUBLE TRACER Oneyda Foley [employer] LAB BLOOD ORDERABLES Final Res ult Performing Organization Address [facility] de Phone Number [facility] [place] [address] * (ABNORMAL) Protime-INR (10/24/2023 7:06 PM TROUBLE TRACER) PT 13.8(H) 10.3 - 13.7 sec [facility] INR 1.21(H) 0.90 - 1.20 [facility] Comment: Interpretive data Oral anticoagulant therapeutic ranges: Venous thromboembolism prophylaxis or treatment: 2.0-3.0 CARDIOLOGY Standard range: 2.0-3.0 High-intensity range: 2.5-3.5 Refer to indication-specific guidelines for appropriate target ranges for prosthetic heart valve replacement. Current interpretive data was last revised on 2019. Blood 10/24/2023 7:06 PM TROUBLE TRACER 10/24/2023 7:13 PM TROUBLE TRACER Oneyda Foley NP LAB BLOOD ORDERABLES Final Res ult Performing Organization Address [facility] de Phone Number [facility] Department [place] [address] * POCT glucose (10/24/2023 2:58 PM TROUBLE TRACER) Glucose, POC 122 70 - 199 mg/dL [facility] Blood 10/24/2023 2:58 PM TROUBLE TRACER 10/24/2023 2:58 PM TROUBLE TRACER Hayder Vu Jr., MD LAB POCT ORDERABLES - DEVICE Final Result Performing Organization Address [facility] [place] [address] * aPTT (10/24/2023 12:18 PM TROUBLE TRACER) Pathologist [facility] aPTT 35 28 - 38 sec [facility] Comment: Interpretive Data Heparin therapeutic range: 66.0 - 100.0 seconds. Range based on correlation with therapeutic heparin activity range of 0.3 - 0.7 Units/mL. Current interpretive data was last revised on 2023. Blood 10/24/2023 12:1 8 PM TROUBLE TRACER 10/24/2023 12:30 PM TROUBLE TRACER Narrative [facility] - 10/24/2023 12:55 PM TROUBLE TRACER Draw STAT PTT 6 hrs after initiation of heparin infusion, draw STAT PTT 6 hours after each dose change, and every 6 hours until 2 consecutive PTTs are within therapeutic range. Once two consecutive PTT's are therapeutic (66-100 seconds), then draw PTT every AM until heparin is discontinued. us Hayder Vu Jr., MD LAB BLOOD ORDERABLE S Final Result Performing Organization Address [facility] de Phone Number [facility] [place] [address] * TRANSTHORACIC ECHO (TTE) COMPLETE W DOPPLER/CF W CONTRAST (10/24/2023 11:43 AM TROUBLE TRACER) Pathologist [facility] LV EF 70 % CARDIOREPORT Anatomical Region Laterality Modality Ultrasound 10/24/2023 7:00 AM TROUBLE TRACER Narrative 10/24/2023 12:10 PM TROUBLE TRACER Patient name: Hira Evans Date of test: 10/24/2023 Type of test: TTE w/Doppler Hospital #: 0 Date of : 1950 (M) Dental Mold Maker: Krystal Wasserman RDCS Referring Physician: HAYDER VU MD Contrast Agent: 1.1 ml Optison Administered, (1.9 ml wasted). Contrast Administered by: icu nurse Supervised/Interpreted by: Woody White MD Diagnosis: Location: [facility] Reason for test: Post arrest, bilateral PE [...] 2=Hypo 3=Akinetic 4=Dyskin./Aneurysm 0=Not visualized) Parasternal Long [place]:MAS=1 BAS=1 MIL=1 HIPOLITO=1 Parasternal Short [place]:MAS=1 MIS=1 FL=1 MIL=1 MAL=1 MA=1 Apical 4 Chambers:=1 MIS=1 BIS=1 BAL=1 MAL=1 AL=1 AC=1 Apical 2 Chambers:AI=1 FL=1 BI=1 BA=1 MA=1 AA=1 AC=1 LV Global [...] MD By signing this report, the attending cloth classer certifies that he or she has personally supervised and interpreted the echocardiogram and has reviewed and or edited and agrees with the written comments contained within the report. Procedure Note Woody Hidalgo MD - 10/24/2023 Patient name: Hira Evans Date of test: 10/24/2023 Type of test: TTE w/Doppler [facility] #: 0 Date of : 1950 (M) Dental Mold Maker: Krystal Wasserman [facility] Referring Physician: HAYDER VU MD Contrast Agent: 1.1 ml Optison Administered, (1.9 ml wasted). Contrast Administered by: icu nurse Supervised/Interpreted by: Woody White MD Diagnosis: Location: [facility] Reason for test: Post arrest, bilateral PE [...] 2=Hypo 3=Akinetic 4=Dyskin./Aneurysm 0=Not visualized) Parasternal Long [place]:MAS=1 BAS=1 MIL=1 HIPOLITO=1 Parasternal Short [place]:MAS=1 MIS=1 FL=1 MIL=1 MAL=1 MA=1 Apical 4 Chambers:=1 MIS=1 BIS=1 BAL=1 MAL=1 AL=1 AC=1 Apical 2 Chambers:AI=1 FL=1 BI=1 BA=1 MA=1 AA=1 AC=1 LV Global [...] MD By signing this report, the attending cloth classer certifies that he or she has personally supervised and interpreted the echocardiogram and has reviewed and or edited and agrees with the written comments contained within the report. Hayder Vu Jr., MD CV ECHO PROCEDURES Final Result * POCT glucose (10/24/2023 11:04 AM TROUBLE TRACER) [facility] Glucose, POC 121 70 - 199 mg/dL [facility] Blood 10/24/2023 11:0 4 AM TROUBLE TRACER 10/24/2023 11:04 AM TROUBLE TRACER Hayder Vu Jr., MD LAB POCT ORDERABLES - DEVICE Final Result [facility] [address] Department [place] [address] * (ABNORMAL) Troponin I high-sensitivity 6-hour (10/24/2023 9:39 AM TROUBLE TRACER) [facility] Trop I hs 133(H) <=35 ng/L [facility] Comment: Interpretive Data For further hscTnI resources including the diagnostic algorithm and an aid in interpretation, copy and paste this link: https://[email or web address]/show/hsTrop-1 Current Interpretive Data last revised 2020. Previous critical value noted within 48 hours ago. Trop I hs pct delta -35(C) % [facility] Trop I hs interp Significa nt(C) [facility] Blood 10/24/2023 9:39 AM TROUBLE TRACER 10/24/2023 9:54 AM TROUBLE TRACER Hayder Vu Jr., MD LAB BLOOD ORDERABLE S Edited Result - Final Performing Organization Address [facility]/ZIP Co de Phone Number [facility] [place] [address] * (ABNORMAL) Troponin I high-sensitivity (10/24/2023 8:32 AM TROUBLE TRACER) Trop I hs 153(H) <=35 ng/L [facility] Comment: Interpretive Data For further hscTnI resources including the diagnostic algorithm and an aid in interpretation, copy and paste this link: https://[email or web address]/show/hsTrop-1 Current Interpretive Data last revised 2020. Blood 10/24/2023 8:32 AM TROUBLE TRACER 10/24/2023 8:59 AM TROUBLE TRACER us Veronica MESA LAB BLOOD ORDERABLES Fi nal Result Performing Organization Address City/[facility]/ZIP Co de Phone Number [facility] [place] [address] * POCT glucose (10/24/2023 7:31 AM TROUBLE TRACER) Glucose, POC 111 70 - 199 mg/dL [facility] Blood 10/24/2023 7:31 AM TROUBLE TRACER 10/24/2023 7:31 AM TROUBLE TRACER us Hayder Vu Jr., MD LAB POCT ORDERABLES - DEVICE Final Result [facility] [address] [place] [address] * Critical Care (10/24/2023 6:48 AM TROUBLE TRACER) Narrative Avel Bourne MD - 10/24/2023 6:48 AM TROUBLE TRACER Rob Langley NP ? 10/24/2023 ??5:31 PM [...] plan with the ICU team and other medical/hr consultant staff, making frequent assessments and decisions [...] the following conditions: ?? us Rob Langley PRIVATE TUTOR IN CLINIC/BEDS ADELE ORDERABLES Final Result * aPTT (10/24/2023 5:38 AM TROUBLE TRACER) aPTT 30 28 - 38 sec [facility] Comment: Interpretive Data Heparin therapeutic range: 66.0 - 100.0 seconds. Range based on correlation with therapeutic heparin activity range of 0.3 - 0.7 Units/mL. Current interpretive data was last revised on 2023. Blood 10/24/2023 5:38 AM TROUBLE TRACER 10/24/2023 5:43 AM TROUBLE TRACER Narrative [facility] - 10/24/2023 6:06 AM TROUBLE TRACER Draw STAT PTT 6 hrs after initiation of heparin infusion, draw STAT PTT 6 hours after each dose change, and every 6 hours until 2 consecutive PTTs are within therapeutic range. Once two consecutive PTT's are therapeutic (66-100 seconds), then draw PTT every AM until heparin is discontinued. Hayder Vu Jr., MD LAB BLOOD ORDERABLE S Final Result Performing Organization Address [facility] Co de Phone Number [facility] [place] [address] * (ABNORMAL) Troponin I high-sensitivity 2-hour (10/24/2023 5:38 AM TROUBLE TRACER) Trop I hs 195(H) <=35 ng/L [facility] Comment: Previous critical value noted within 48 hours ago. Interpretive Data For further hscTnI resources including the diagnostic algorithm and an aid in interpretation, copy and paste this link: https://bjhlab.testcatalog.org/show/hsTrop-1 Current Interpretive Data last revised 2020. Trop I hs pct delta -5 % [facility] Comment:Previous critical va lue noted within 48 hours ago. Trop I hs interp Equivocal [facility] Comment:Previous critical va lue noted within 48 hours ago. Blood 10/24/2023 5:38 AM TROUBLE TRACER 10/24/2023 5:43 AM TROUBLE TRACER Hayder Vu Jr., MD LAB BLOOD ORDERABLE S Final Result Performing Organization Address [facility] Co de Phone Number [facility] [place] [address] * EEG (10/24/2023 5:02 AM TROUBLE TRACER) Anatomical Region Laterality Modality EEG Narrative 10/24/2023 4:40 PM TROUBLE TRACER Routine EEG Report Patient Name: Hira Evans [facility] Medical Record Number (MRN): [id number] [facility] Record: [id number] Date of (): 1950 EEG Date: 10/24/2023 [...] 32 channel EEG recording acquired on a [email or web address] EEG-1200 acquisition system. Scalp electrodes were placed [...] * ECG 12 lead (10/24/2023 3:44 AM TROUBLE TRACER) Ventricular Rate EKG/Min 82 BPM [facility] Atrial Rate 82 BPM [facility] WI-Interval (MSEC) 166 ms [facility] QRS-Interval (MSEC) 78 ms [facility] QT-Interval (MSEC) 384 ms [facility] QTc 448 ms [facility] P Port [place] 34 degrees [facility] R [place] -30 degrees [facility] T [place] -13 degrees [facility] Diagnosis Normal sinus rhythm Left axis deviation Nonspecific ST abnormality Abnormal ECG No previous ECGs available Confirmed by ELLA LASSITER M.D ([id number]) on 10/25/2023 1:12:26 PM [facility] 10/24/2023 3:44 AM TROUBLE TRACER 10/25/2023 1:12 PM TROUBLE TRACER us Tia Nolan PRIVATE TUTOR ECG ORDERABLES Final Result [facility] * Critical result callback Cardio chemistry (10/24/2023 3:38 AM TROUBLE TRACER) Date Notified [id number] [facility] Time Notified 451 [facility] Test name Trop I hs [facility] Called/Read Back Edwige SANCHEZ [facility] Credentials RN [facility] Called By JO [facility] Blood 10/24/2023 3:38 AM TROUBLE TRACER 10/24/2023 4:02 AM TROUBLE TRACER us Hayder Vu Jr., MD LAB BLOOD ORDERABLE S Final Result [facility] [address] Department [place] [address] * (ABNORMAL) Troponin I high-sensitivity series (baseline, 2hr, 4hr, 6hr) (10/24/2023 3:38 AM TROUBLE TRACER) Trop I hs 206(C) <=35 ng/L [facility] Comment: reviewed Interpretive Data For further hscTnI resources including the diagnostic algorithm and an aid in interpretation, copy and paste this link: https://bjhlab.testcatalog.org/show/hsTrop-1 Current Interpretive Data last revised 2020. Blood 10/24/2023 3:38 AM TROUBLE TRACER 10/24/2023 4:02 AM TROUBLE TRACER Hayder Vu Jr., MD LAB BLOOD ORDERABLE S Final Result Performing Organization Address City/[facility] Co de Phone Number [facility] [place] [address] * Lactate (10/24/2023 3:38 AM TROUBLE TRACER) Lactate 0.9 0.7 - 2.0 mmol/L [facility] Blood 10/24/2023 3:38 AM TROUBLE TRACER 10/24/2023 4:02 AM TROUBLE TRACER Hayder Vu Jr., MD LAB BLOOD ORDERABLE S Final Result Performing Organization Address [facility] de Phone Number [facility] [place] [address] * POCT glucose (10/24/2023 3:25 AM TROUBLE TRACER) Glucose, POC 180 70 - 199 mg/dL [facility] Blood 10/24/2023 3:25 AM TROUBLE TRACER 10/24/2023 3:25 AM TROUBLE TRACER Hayder Vu Jr., MD LAB POCT ORDERABLES - DEVICE Final Result Performing Organization Address [facility] [place] [address] * (ABNORMAL) POCT glucose (10/24/2023 12:20 AM TROUBLE TRACER) Glucose, POC 252(H) 70 - 199 mg/dL [facility] Blood 10/24/2023 12:2 0 AM TROUBLE TRACER 10/24/2023 12:20 AM TROUBLE TRACER Hayder Vu Jr., MD LAB POCT ORDERABLES - DEVICE Final Result Performing Organization Address [facility] de Phone Number [facility] [place] [address] * (ABNORMAL) aPTT (10/24/2023 12:20 AM TROUBLE TRACER) Pathologist [facility] aPTT 27(L) 28 - 38 sec [facility] Comment: Interpretive Data Heparin therapeutic range: 66.0 - 100.0 seconds. Range based on correlation with therapeutic heparin activity range of 0.3 - 0.7 Units/mL. Current interpretive data was last revised on 2023. Blood 10/24/2023 12:2 0 AM TROUBLE TRACER 10/24/2023 12:31 AM TROUBLE TRACER Narrative [facility] - 10/24/2023 12:58 AM TROUBLE TRACER Baseline prior to heparin initiation Hayder Vu Jr., MD LAB BLOOD ORDERABLE S Final Result Performing Organization Address [facility] de Phone Number [facility] [place] [address] * (ABNORMAL) CBC without differential (10/24/2023 12:20 AM TROUBLE TRACER) [facility] WBC 22.9(H) 3.8 - 9.9 K/cumm [facility] Hgb 9.0(L) 13.0 - 17.5 g/dL [facility] Hct 25.4(L) 38.9 - 50.3 % [facility] Plt 366 150 - 400 K/cumm [facility] MPV 10.8 9.1 - 12.3 fL [facility] RBC 2.76(L) 4.30 - 5.80 M/cumm [facility] MCV 92.0 81.3 - 96.4 fL [facility] MCH 32.6 27.1 - 33.3 pg [facility] MCHC 35.4 32.3 - 35.7 g/dL [facility] RDW CV 12.5 11.1 - 14.9 % [facility] RDW SD 41.8 35.7 - 48.1 fL [facility] NRBC abs 0.00 0.00 - 0.01 K/cumm [facility] Blood 10/24/2023 12:2 0 AM TROUBLE TRACER 10/24/2023 12:45 AM TROUBLE TRACER Narrative [facility] - 10/24/2023 12:55 AM TROUBLE TRACER Baseline prior to heparin initiation Hayder Vu Jr., MD LAB BLOOD ORDERABLE S Final Result Performing Organization Address [facility] de Phone Number [facility] [place] [address] * Protime-INR (10/24/2023 12:20 AM TROUBLE TRACER) PT 13.7 10.3 - 13.7 sec [facility] INR 1.20 0.90 - 1.20 [facility] Comment: Interpretive data Oral anticoagulant therapeutic ranges: Venous thromboembolism prophylaxis or treatment: 2.0-3.0 CARDIOLOGY Standard range: 2.0-3.0 High-intensity range: 2.5-3.5 Refer to indication-specific guidelines for appropriate target ranges for prosthetic heart valve replacement. Current interpretive data was last revised on 2019. Blood 10/24/2023 12:2 0 AM TROUBLE TRACER 10/24/2023 12:31 AM TROUBLE TRACER Narrative [facility] - 10/24/2023 12:58 AM TROUBLE TRACER Baseline prior to heparin initiation Hayder Vu Jr., MD LAB BLOOD ORDERABLE S Final Result Performing Organization Address [facility] Co de Phone Number [facility] [place] [address] * HIV 1/2 Antibody plus p24 Antigen Blood (10/24/2023 12:20 AM TROUBLE TRACER) HIV 1/2 ab + p24 ag Nonreactive Nonreactive [facility] Comment:Nonreactive for HIV- 1 antigen and HIV-1/HIV-2 antibodies. No laboratory evidence of HIV infection. If acute HIV infection is suspected, consider testing for HIV-1 RNA. Current interpretive data was last revised on 22. Blood 10/24/2023 12:2 0 AM TROUBLE TRACER 10/24/2023 12:45 AM TROUBLE TRACER us Hayder Vu Jr., MD LAB MICROBIOLOGY - GENERAL ORDERABLES Final Result [facility] [address] [place] [address] * CT Chest PE (CTA) Abdomen Pelvis W Contrast (10/23/2023 11:48 PM TROUBLE TRACER) Anatomical Region Laterality Modality Body N/A Computed Tomogra phy 10/24/2023 12:1 1 AM TROUBLE TRACER Impressions 10/24/2023 7:15 AM TROUBLE TRACER 1. ??Acute pulmonary emboli involving the distal [...] Clemente Mathew M.D. Narrative 10/24/2023 7:15 AM TROUBLE TRACER EXAMINATION: CT CHEST PE (CTA) ABDOMEN PELVIS [...] CT Head WO Contrast (10/23/2023 11:48 PM TROUBLE TRACER) Anatomical Region Laterality Modality Head and Neck N/A Computed Tomogra phy 10/24/2023 12:3 6 AM TROUBLE TRACER Impressions 10/24/2023 11:45 AM TROUBLE TRACER Subtle white matter hypoattenuation with loss of [...] Zac Mcgarry M.D. Narrative 10/24/2023 11:45 AM TROUBLE TRACER EXAMINATION: CT head without contrast HISTORY: 73-year-old [...] Result * Critical Care (10/23/2023 11:47 PM TROUBLE TRACER) Narrative Wilder Arceo Jr., MD - 10/23/2023 11:47 PM TROUBLE TRACER Wilder Arceo Jr., MD ? 10/24/2023 ??3:28 [...] plan with the ICU team and other medical/hr consultant staff, making frequent assessments and decisions [...] * (ABNORMAL) Manual Differential (10/23/2023 11:03 PM TROUBLE TRACER) Differential Auto [facility] Neutrophil abs 23.5(H) 1.5 - 6.5 K/cumm [facility] Imm gran abs 0.9(H) 0.0 - 0.1 K/cumm [facility] Lymphocyte abs 1.1 0.8 - 3.3 K/cumm [facility] Monocyte abs 1.1(H) 0.2 - 0.8 K/cumm [facility] Eosinophil abs 0.1 0.0 - 0.5 K/cumm [facility] Basophil abs 0.1 0.0 - 0.1 K/cumm [facility] Neutrophil pct 88.2 % [facility] Comment: Interpretive Data Percent cell count reference ranges are not reported, since discordance with absolute values may lead to misinterpretation of CBC data. Current Interpretive Data was last revised on 2018. Imm gran pct 3.4 % [facility] Comment: Interpretive Data Percent cell count reference ranges are not reported, since discordance with absolute values may lead to misinterpretation of CBC data. Current Interpretive Data was last revised on 2018. Lymphocyte pct 3.9 % [facility] Comment: Interpretive Data Percent cell count reference ranges are not reported, since discordance with absolute values may lead to misinterpretation of CBC data. Current Interpretive Data was last revised on 2018. Monocyte pct 3.9 % [facility] Comment: Interpretive Data Percent cell count reference ranges are not reported, since discordance with absolute values may lead to misinterpretation of CBC data. Current Interpretive Data was last revised on 2018. Eosinophil pct 0.2 % [facility] Comment: Interpretive Data Percent cell count reference ranges are not reported, since discordance with absolute values may lead to misinterpretation of CBC data. Current Interpretive Data was last revised on 2018. Basophil pct 0.4 % [facility] Comment: Interpretive Data Percent cell count reference ranges are not reported, since discordance with absolute values may lead to misinterpretation of CBC data. Current Interpretive Data was last revised on 2018. RBC morphology Present(A) [facility] Polychromasia 3-7/HPF(A) [facility] Poikilocytosis Slight(A) [facility] Platelet estimate Adequate [facility] Blood 10/23/2023 11:0 3 PM TROUBLE TRACER 10/23/2023 11:43 PM TROUBLE TRACER Jimenez Henao MD LAB BLOOD ORDERABLES Final Result [facility] [address] [place] [address] * (ABNORMAL) Differential, auto (10/23/2023 11:03 PM TROUBLE TRACER) Neutrophil abs 23.5(H) 1.5 - 6.5 K/cumm [facility] Imm gran abs 0.9(H) 0.0 - 0.1 K/cumm [facility] Lymphocyte abs 1.1 0.8 - 3.3 K/cumm [facility] Monocyte abs 1.1(H) 0.2 - 0.8 K/cumm [facility] Eosinophil abs 0.1 0.0 - 0.5 K/cumm [facility] Basophil abs 0.1 0.0 - 0.1 K/cumm [facility] Neutrophil pct 88.2 % [facility] Comment: Interpretive Data Percent cell count reference ranges are not reported, since discordance with absolute values may lead to misinterpretation of CBC data. Current Interpretive Data was last revised on 2018. Imm gran pct 3.4 % [facility] Comment: Interpretive Data Percent cell count reference ranges are not reported, since discordance with absolute values may lead to misinterpretation of CBC data. Current Interpretive Data was last revised on 2018. Lymphocyte pct 3.9 % [facility] Comment: Interpretive Data Percent cell count reference ranges are not reported, since discordance with absolute values may lead to misinterpretation of CBC data. Current Interpretive Data was last revised on 2018. Monocyte pct 3.9 % [facility] Comment: Interpretive Data Percent cell count reference ranges are not reported, since discordance with absolute values may lead to misinterpretation of CBC data. Current Interpretive Data was last revised on 2018. Eosinophil pct 0.2 % [facility] Comment: Interpretive Data Percent cell count reference ranges are not reported, since discordance with absolute values may lead to misinterpretation of CBC data. Current Interpretive Data was last revised on 2018. Basophil pct 0.4 % [facility] Comment: Interpretive Data Percent cell count reference ranges are not reported, since discordance with absolute values may lead to misinterpretation of CBC data. Current Interpretive Data was last revised on 2018. Blood 10/23/2023 11:0 3 PM TROUBLE TRACER 10/23/2023 11:11 PM TROUBLE TRACER Jimenez Henao MD LAB BLOOD ORDERABLES Final Result Performing Organization Address [facility] de Phone Number [facility] [place] [address] * (ABNORMAL) Blood gas, arterial (10/23/2023 11:03 PM TROUBLE TRACER) pH, Art 7.38 7.35 - 7.45 [facility] PCO2, Arterial 37 35 - 45 mmHg [facility] PO2, Arterial 133(H) 83 - 108 mmHg [facility] HCO3 Art (Calculated) 22 20 - 30 mmol/L [facility] BE, art -3 mmol/L [facility] Comment: Interpretive Data No Reference Range Established Current Interpretive Data was last revised on 2017 O2 Sat Art (Measured) 99(H) 90 - 95 % [facility] Blood 10/23/2023 11:0 3 PM TROUBLE TRACER 10/23/2023 11:10 PM TROUBLE TRACER Hayder Vu Jr., MD LAB BLOOD ORDERABLE S Final Result Performing Organization Address [facility] de Phone Number [facility] [place] [address] * (ABNORMAL) Calcium, ionized (10/23/2023 11:03 PM TROUBLE TRACER) Calcium, Ionized 4.41(L) 4.50 - 5.10 mg/dL [facility] Blood 10/23/2023 11:0 3 PM TROUBLE TRACER 10/23/2023 11:13 PM TROUBLE TRACER Hayder Vu Jr., MD LAB BLOOD ORDERABLE S Final Result [facility] [place] [address] * (ABNORMAL) CBC with auto differential (10/23/2023 11:03 PM TROUBLE TRACER) WBC 26.7(H) 3.8 - 9.9 K/cumm [facility] Hgb 9.0(L) 13.0 - 17.5 g/dL [facility] Hct 27.3(L) 38.9 - 50.3 % [facility] Plt 418(H) 150 - 400 K/cumm [facility] MPV 11.3 9.1 - 12.3 fL [facility] RBC 2.88(L) 4.30 - 5.80 M/cumm [facility] MCV 94.8 81.3 - 96.4 fL [facility] Comment:MCV delta due to manpreet gical procedure. Spoke to Edwige Porras RN. MCH 31.3 27.1 - 33.3 pg [facility] MCHC 33.0 32.3 - 35.7 g/dL [facility] RDW CV 12.4 11.1 - 14.9 % [facility] [facility] RDW SD 43.5 35.7 - 48.1 fL [facility] NRBC abs 0.00 0.00 - 0.01 K/cumm [facility] Blood 10/23/2023 11:0 3 PM TROUBLE TRACER 10/23/2023 11:11 PM TROUBLE TRACER Tia Nolan NP LAB BLOOD ORDERABLES E dited Result - Final [facility] [address] [place] [address] * (ABNORMAL) Lipid panel (10/23/2023 11:02 PM TROUBLE TRACER) Cholesterol 162 30 - 199 mg/dL [facility] Comment: Interpretive Data Ages < or [...] on 2018. LDL, calculated 101 <=129 mg/dL [facility] Comment: Interpretive Data Ages < or [...] revised on 2018. Non-HDL Cholesterol 128 mg/dL [facility] Comment: Interpretive Data Ages < or [...] last revised on 2018. Chol/HDL ratio 5 [facility] Blood 10/23/2023 11:0 2 PM TROUBLE TRACER 10/23/2023 11:14 PM TROUBLE TRACER Narrative LAURA ZARAGOZA - 10/24/2023 11:06 AM TROUBLE TRACER This lipid panel was automatically ordered due to a significant change in Troponin. The dietary status of the patient at the collection time should be correlated with the lipid results. us Hayder Vu Jr., MD LAB BLOOD ORDERABLE S Final Result [facility] [address] [place] [address] * eGFR (10/23/2023 11:02 PM TROUBLE TRACER) eGFR 74 >=60 mL/min/1. 73 m2 LAURA [...] reviewed 2021. Blood 10/23/2023 11:0 2 PM TROUBLE TRACER 10/23/2023 11:14 PM TROUBLE TRACER us Hayder Vu Jr., MD LAB BLOOD ORDERABLE S Final Result Performing Organization Address City/[facility] Co de Phone Number [facility] [place] [address] * (ABNORMAL) Phosphorus (10/23/2023 11:02 PM TROUBLE TRACER) [facility] Phosphorus, pl 4.6(H) 2.3 - 4.5 mg/dL [facility] Blood 10/23/2023 11:0 2 PM TROUBLE TRACER 10/23/2023 11:13 PM TROUBLE TRACER us Hayder Vu Jr., MD LAB BLOOD ORDERABLE S Final Result Performing Organization Address [facility] Co de Phone Number [facility] [place] [address] * Magnesium (10/23/2023 11:02 PM TROUBLE TRACER) [facility] Magnesium 2.0 1.4 - 2.5 mg/dL [facility] Blood 10/23/2023 11:0 2 PM TROUBLE TRACER 10/23/2023 11:13 PM TROUBLE TRACER us Hayder Vu Jr., MD LAB BLOOD ORDERABLE S Final Result Performing Organization Address [facility] Co de Phone Number [facility] [place] [address] * (ABNORMAL) Comprehensive metabolic panel (10/23/2023 11:02 PM TROUBLE TRACER) [facility] Sodium 137 135 - 145 mmol/L [facility] Potassium, pl 4.1 3.3 - 4.9 mmol/L [facility] Chloride 102 97 - 110 mmol/L [facility] CO2 23 22 - 32 mmol/L [facility] Anion gap 12 2 - 15 mmol/L [facility] BUN 12 6 - 25 mg/dL [facility] Creatinine 1.07 0.80 - 1.30 mg/dL [facility] Glucose 245(H) 70 - 199 mg/dL [facility] Comment: Interpretive Data Fasting glucose >/= [...] 2022. Calcium 8.3(L) 8.5 - 10.3 mg/dL [facility] Bilirubin, total 0.6 0.1 - 1.2 mg/dL [facility] Protein, pl 5.9(L) 6.5 - 8.5 g/dL [facility] Albumin 2.6(L) 3.5 - 5.0 g/dL [facility] Alk phos 91 40 - 130 Units/L [facility] ALT 88(H) 7 - 55 Units/L [facility] AST 83(H) 10 - 50 Units/L [facility] Blood 10/23/2023 11:0 2 PM TROUBLE TRACER 10/23/2023 11:13 PM TROUBLE TRACER us Hayder Vu Jr., MD LAB BLOOD ORDERABLE S Final Result [facility] [address] [place] [address] * (ABNORMAL) aPTT (10/23/2023 11:02 PM TROUBLE TRACER) [facility] Signature aPTT 25(L) 28 - 38 sec [facility] Comment: Interpretive Data Heparin therapeutic range: 66.0 - 100.0 seconds. Range based on correlation with therapeutic heparin activity range of 0.3 - 0.7 Units/mL. Current interpretive data was last revised on 2023. Blood 10/23/2023 11:0 2 PM TROUBLE TRACER 10/23/2023 11:58 PM TROUBLE TRACER Oneyda Foley NP LAB BLOOD ORDERABLES Final Res ult Performing Organization Address [facility] Co de Phone Number [facility] [place] [address] * (ABNORMAL) Protime-INR (10/23/2023 11:02 PM TROUBLE TRACER) PT 13.9(H) 10.3 - 13.7 sec [facility] INR 1.22(H) 0.90 - 1.20 [facility] Comment: Interpretive data Oral anticoagulant therapeutic ranges: Venous thromboembolism prophylaxis or treatment: 2.0-3.0 CARDIOLOGY Standard range: 2.0-3.0 High-intensity range: 2.5-3.5 Refer to indication-specific guidelines for appropriate target ranges for prosthetic heart valve replacement. Current interpretive data was last revised on 2019. Blood 10/23/2023 11:0 2 PM TROUBLE TRACER 10/23/2023 11:58 PM TROUBLE TRACER Oneyda Foley NP LAB BLOOD ORDERABLES Final Res ult Performing Organization Address [facility] de Phone Number [facility] [place] [address] * (ABNORMAL) POC Blood Gas and Chemistries, Arterial - (10/23/2023 10:39 PM TROUBLE TRACER) pH, Art POC 7.37 7.35 - 7.45 [facility] pCO2, Art POC 38 35 - 45 mmHg [facility] pO2, Art POC 137(H) 83 - 108 mmHg [facility] Na, POC 137 135 - 145 mmol/L [facility] K POC 4.0 3.3 - 4.9 mmol/L [facility] Comment: Interpretive Data This method is not able to assess for hemolysis, which may falsely increase potassium concentrations. If further testing is needed to evaluate this result, consider in-laboratory plasma potassium. Current Interpretive Data was last revised on 2022. Cl, POC 107 97 - 110 mmol/L [facility] Ionized Ca, POC 4.58 4.50 - 5.10 mg/dL [facility] Glucose, POC 247(H) 70 - 199 mg/dL [facility] Lactate, POC 4.6(C) 0.7 - 2.2 mmol/L [facility] SO2 (crys) arterial 100(H) 90 - 95 % [facility] Base excess, POC -3.0 mmol/L [facility] HCO3, Art POC 22 20 - 30 mmol/L [facility] Hct, POC 28.0(L) 41.4 - 51.6 % [facility] O2 Sat, Art POC (Calc) 99 % [facility] Total Hb, POC 9.2(L) 13.8 - 17.2 g/dL [facility] Blood 10/23/2023 10:3 9 PM TROUBLE TRACER 10/23/2023 10:39 PM TROUBLE TRACER Hayder Vu Jr., MD LAB POCT ORDERABLES - DEVICE Final Result [facility] [address] [place] [address] * (ABNORMAL) POC Blood Gas and Chemistries, Arterial - (10/23/2023 10:07 PM TROUBLE TRACER) pH, Art POC 7.12(C) 7.35 - 7.45 [facility] pCO2, Art POC 54(H) 35 - 45 mmHg [facility] pO2, Art POC 287(H) 83 - 108 mmHg [facility] Na, POC 137 135 - 145 mmol/L [facility] K POC 4.0 3.3 - 4.9 mmol/L [facility] Comment: Interpretive Data This method is not able to assess for hemolysis, which may falsely increase potassium concentrations. If further testing is needed to evaluate this result, consider in-laboratory plasma potassium. Current Interpretive Data was last revised on 2022. Cl, POC 104 97 - 110 mmol/L [facility] Ionized Ca, POC 4.67 4.50 - 5.10 mg/dL [facility] Glucose, POC 235(H) 70 - 199 mg/dL [facility] Lactate, POC 7.2(C) 0.7 - 2.2 mmol/L [facility] SO2 (crys) arterial 100(H) 90 - 95 % [facility] Base excess, POC -11.4 mmol/L [facility] HCO3, Art POC 16(L) 20 - 30 mmol/L [facility] Hct, POC 29.0(L) 41.4 - 51.6 % [facility] O2 Sat, Art POC (Calc) 100 % [facility] Total Hb, POC 9.5(L) 13.8 - 17.2 g/dL [facility] Blood 10/23/2023 10:0 7 PM TROUBLE TRACER 10/23/2023 10:07 PM TROUBLE TRACER us Pipe Moseley MD LAB POCT ORDERABLES - DEV ICE Final Result [facility] [address] [place] [address] * eGFR (10/23/2023 9:52 PM TROUBLE TRACER) eGFR 75 >=60 mL/min/1. 73 m2 [facility] Comment: Interpretive Data Reference Interval Normal [...] last reviewed 2021. Blood 10/23/2023 9:52 PM TROUBLE TRACER 10/23/2023 10:01 PM TROUBLE TRACER us Myke Smith MD PhD LAB BLOOD ORDERA BLES Final Result [facility] [address] [place] [address] * (ABNORMAL) Basic metabolic panel (10/23/2023 9:52 PM TROUBLE TRACER) Sodium 143 135 - 145 mmol/L [facility] Potassium, pl 3.8 3.3 - 4.9 mmol/L [facility] Chloride 102 97 - 110 mmol/L [facility] CO2 20(L) 22 - 32 mmol/L [facility] Anion gap 21(H) 2 - 15 mmol/L [facility] BUN 12 6 - 25 mg/dL [facility] Creatinine 1.06 0.80 - 1.30 mg/dL [facility] Glucose 208(H) 70 - 199 mg/dL [facility] Comment: Interpretive Data Fasting glucose >/= [...] 2022. Calcium 8.9 8.5 - 10.3 mg/dL [facility] Blood 10/23/2023 9:52 PM TROUBLE TRACER 10/23/2023 10:01 PM TROUBLE TRACER Myke Smith MD PhD LAB BLOOD ORDERA BLES Final Result Performing Organization Address [facility] Co de Phone Number [facility] [place] [address] * (ABNORMAL) CBC without differential (10/23/2023 9:52 PM TROUBLE TRACER) [facility] WBC 23.8(H) 3.8 - 9.9 K/cumm [facility] Hgb 9.8(L) 13.0 - 17.5 g/dL [facility] Hct 32.0(L) 38.9 - 50.3 % [facility] Plt 458(H) 150 - 400 K/cumm [facility] MPV 11.1 9.1 - 12.3 fL [facility] RBC 3.14(L) 4.30 - 5.80 M/cumm [facility] MCV 101.9(H) 81.3 - 96.4 fL [facility] Comment:MCV delta due to manpreet gical procedure. MCH 31.2 27.1 - 33.3 pg [facility] MCHC 30.6(L) 32.3 - 35.7 g/dL [facility] RDW CV 12.5 11.1 - 14.9 % [facility] RDW SD 46.9 35.7 - 48.1 fL [facility] NRBC abs 0.03(H) 0.00 - 0.01 K/cumm [facility] Blood 10/23/2023 9:52 PM TROUBLE TRACER 10/23/2023 10:02 PM TROUBLE TRACER Result [facility] Myke Smith MD PhD LAB BLOOD ORDERA BLES Final Result Performing Organization Address [facility] Co de Phone Number [facility] [place] [address] * (ABNORMAL) POC Blood Gas and Chemistries, Venous - (10/23/2023 9:50 PM TROUBLE TRACER) pH, Arturo POC 6.99(C) 7.32 - 7.43 [facility] pCO2, arturo POC 84(C) 40 - 50 mmHg [facility] pO2, arturo POC 42 mmHg [facility] Na, POC 139 135 - 145 mmol/L [facility] K POC 5.4(H) 3.3 - 4.9 mmol/L [facility] Comment: Interpretive Data This method is not able to assess for hemolysis, which may falsely increase potassium concentrations. If further testing is needed to evaluate this result, consider in-laboratory plasma potassium. Current Interpretive Data was last revised on 2022. Cl, POC 103 97 - 110 mmol/L [facility] Ionized Ca, POC 4.70 4.50 - 5.10 mg/dL [facility] Glucose, POC 172 70 - 199 mg/dL [facility] Lactate, POC 9.2(C) 0.7 - 2.2 mmol/L [facility] O2 Sat, Arturo POC (Crys) 48 % [facility] Base excess, POC -11.7 mmol/L [facility] Hct, POC 30.0(L) 41.4 - 51.6 % [facility] Total Hb, POC 10.0(L) 13.8 - 17.2 g/dL [facility] O2 Sat, Arturo POC (Calc) 48 % [facility] Blood 10/23/2023 9:50 PM TROUBLE TRACER 10/23/2023 9:50 PM TROUBLE TRACER us Pipe Moseley MD LAB POCT ORDERABLES - DEV ICE Final Result [facility] [address] [place] [address] * [place] Fluoroscopy < 1 Hour (10/23/2023 8:45 PM TROUBLE TRACER) Narrative [facility] - 10/23/2023 8:46 PM TROUBLE TRACER The images from this study are not interpreted by Radiology. ??Please refer to the physician's procedure / OR operative note. us Hayder Vu Jr., MD IMG FLUOROSCOPY PRO CEDURES Final Result Performing Organization Address City/[facility]/ZIP Co de Phone Number [email or web address] * eGFR (10/22/2023 9:39 PM TROUBLE TRACER) eGFR 66 >=60 mL/min/1. 73 m2 [facility] [...] last reviewed 2021. Blood 10/22/2023 9:39 PM TROUBLE TRACER 10/22/2023 10:23 PM TROUBLE TRACER us Jimenez Henao MD LAB BLOOD ORDERABLES Final Result Performing Organization Address City/[facility] Co de Phone Number [facility] [address] [place] [address] * (ABNORMAL) Differential, auto (10/22/2023 9:39 PM TROUBLE TRACER) Neutrophil abs 6.2 1.5 - 6.5 K/cumm [facility] Imm gran abs 0.1 0.0 - 0.1 K/cumm [facility] Lymphocyte abs 1.3 0.8 - 3.3 K/cumm [facility] Monocyte abs 1.1(H) 0.2 - 0.8 K/cumm [facility] Eosinophil abs 0.1 0.0 - 0.5 K/cumm [facility] Basophil abs 0.1 0.0 - 0.1 K/cumm [facility] Neutrophil pct 70.2 % [facility] Comment: Interpretive Data Percent cell count reference ranges are not reported, since discordance with absolute values may lead to misinterpretation of CBC data. Current Interpretive Data was last revised on 2018. Imm gran pct 1.0 % [facility] Comment: Interpretive Data Percent cell count reference ranges are not reported, since discordance with absolute values may lead to misinterpretation of CBC data. Current Interpretive Data was last revised on 2018. Lymphocyte pct 14.4 % [facility] Comment: Interpretive Data Percent cell count reference ranges are not reported, since discordance with absolute values may lead to misinterpretation of CBC data. Current Interpretive Data was last revised on 2018. Monocyte pct 12.4 % [facility] Comment: Interpretive Data Percent cell count reference ranges are not reported, since discordance with absolute values may lead to misinterpretation of CBC data. Current Interpretive Data was last revised on 2018. Eosinophil pct 1.4 % [facility] Comment: Interpretive Data Percent cell count reference ranges are not reported, since discordance with absolute values may lead to misinterpretation of CBC data. Current Interpretive Data was last revised on 2018. Basophil pct 0.6 % [facility] Comment: Interpretive Data Percent cell count reference ranges are not reported, since discordance with absolute values may lead to misinterpretation of CBC data. Current Interpretive Data was last revised on 2018. Blood 10/22/2023 9:39 PM TROUBLE TRACER 10/22/2023 10:17 PM TROUBLE TRACER Result Caity Henao MD LAB BLOOD ORDERABLES Final Result Performing Organization Address City/[facility]/ZIP Co de Phone Number [facility] [place] [address] * Type and screen (10/22/2023 9:39 PM TROUBLE TRACER) Jigna, indirect Negative ABO Rh O Positive [facility] Blood 10/22/2023 9:39 PM TROUBLE TRACER 10/22/2023 10:24 PM TROUBLE TRACER Narrative [facility] - 10/22/2023 11:35 PM TROUBLE TRACER Has the patient had Daratumumab or Isatuximab in the past 6 months?->Unknown Result Caity Henao MD LAB BLOOD BANK TEST O RDERABLES Final Result Performing Organization Address [facility] [place] [address] * Protime-INR (10/22/2023 9:39 PM TROUBLE TRACER) Pathologist [facility] PT 12.6 10.3 - 13.7 sec [facility] INR 1.11 0.90 - 1.20 [facility] Comment: Interpretive data Oral anticoagulant therapeutic ranges: Venous thromboembolism prophylaxis or treatment: 2.0-3.0 CARDIOLOGY Standard range: 2.0-3.0 High-intensity range: 2.5-3.5 Refer to indication-specific guidelines for appropriate target ranges for prosthetic heart valve replacement. Current interpretive data was last revised on 2019. Blood 10/22/2023 9:39 PM TROUBLE TRACER 10/22/2023 10:26 PM TROUBLE TRACER Result Caity Henao MD LAB BLOOD ORDERABLES Final Result Performing Organization Address City/[facility] [place] [address] * (ABNORMAL) CBC with auto differential (10/22/2023 9:39 PM TROUBLE TRACER) [facility] WBC 8.8 3.8 - 9.9 K/cumm [facility] Hgb 10.5(L) 13.0 - 17.5 g/dL [facility] Hct 30.7(L) 38.9 - 50.3 % [facility] Plt 378 150 - 400 K/cumm [facility] MPV 10.6 9.1 - 12.3 fL [facility] RBC 3.29(L) 4.30 - 5.80 M/cumm [facility] MCV 93.3 81.3 - 96.4 fL [facility] MCH 31.9 27.1 - 33.3 pg [facility] MCHC 34.2 32.3 - 35.7 g/dL [facility] RDW CV 12.4 11.1 - 14.9 % [facility] RDW SD 43.1 35.7 - 48.1 fL [facility] NRBC abs 0.00 0.00 - 0.01 K/cumm [facility] Blood 10/22/2023 9:39 PM TROUBLE TRACER 10/22/2023 10:17 PM TROUBLE TRACER Tia Nolan [employer] LAB BLOOD ORDERABLES F inal Result [facility] [address] [place] [address] * (ABNORMAL) Basic metabolic panel (10/22/2023 9:39 PM TROUBLE TRACER) [facility] Sodium 134(L) 135 - 145 mmol/L [facility] Potassium, pl 4.6 3.3 - 4.9 mmol/L [facility] Chloride 99 97 - 110 mmol/L [facility] CO2 30 22 - 32 mmol/L [facility] Anion gap 5 2 - 15 mmol/L [facility] BUN 12 6 - 25 mg/dL [facility] Creatinine 1.17 0.80 - 1.30 mg/dL [facility] Glucose 121 70 - 199 mg/dL [facility] Comment: Interpretive Data Fasting glucose >/= [...] 2022. Calcium 8.8 8.5 - 10.3 mg/dL [facility] Blood 10/22/2023 9:39 PM TROUBLE TRACER 10/22/2023 10:23 PM TROUBLE TRACER us Tia Nolan [employer] LAB BLOOD ORDERABLES F inal Result Performing Organization Address City/State/[facility] Co de Phone Number [facility] [address] [place] [address] * XR Chest 1 View (10/22/2023 6:24 AM TROUBLE TRACER) Anatomical Region Laterality Modality Body, Chest N/A Computed Radiogr aphy 10/22/2023 8:41 AM TROUBLE TRACER Impressions 10/22/2023 12:03 PM TROUBLE TRACER Comparison is made to CT chest abdomen [...] Maritza Miranda M.D. Narrative 10/22/2023 12:03 PM TROUBLE TRACER EXAMINATION: 1 view chest radiograph Procedure Note [...] Resul t * eGFR (10/21/2023 10:52 PM TROUBLE TRACER) eGFR 78 >=60 mL/min/1. 73 m2 [facility] Comment: Interpretive Data Reference Interval Normal [...] reviewed 2021. Blood 10/21/2023 10:5 2 PM TROUBLE TRACER 10/21/2023 11:16 PM TROUBLE TRACER Jimenez Henao MD LAB BLOOD ORDERABLES Final Result [facility] [address] [place] [address] * (ABNORMAL) Differential, auto (10/21/2023 10:52 PM TROUBLE TRACER) Neutrophil abs 5.0 1.5 - 6.5 K/cumm [facility] Imm gran abs 0.1 0.0 - 0.1 K/cumm [facility] Lymphocyte abs 1.4 0.8 - 3.3 K/cumm [facility] Monocyte abs 1.1(H) 0.2 - 0.8 K/cumm [facility] Eosinophil abs 0.1 0.0 - 0.5 K/cumm [facility] Basophil abs 0.0 0.0 - 0.1 K/cumm [facility] Neutrophil pct 65.0 % [facility] Comment: Interpretive Data Percent cell count reference ranges are not reported, since discordance with absolute values may lead to misinterpretation of CBC data. Current Interpretive Data was last revised on 2018. Imm gran pct 1.3 % [facility] Comment: Interpretive Data Percent cell count reference ranges are not reported, since discordance with absolute values may lead to misinterpretation of CBC data. Current Interpretive Data was last revised on 2018. Lymphocyte pct 17.8 % [facility] Comment: Interpretive Data Percent cell count reference ranges are not reported, since discordance with absolute values may lead to misinterpretation of CBC data. Current Interpretive Data was last revised on 2018. Monocyte pct 13.6 % [facility] Comment: Interpretive Data Percent cell count reference ranges are not reported, since discordance with absolute values may lead to misinterpretation of CBC data. Current Interpretive Data was last revised on 2018. Eosinophil pct 1.8 % [facility] Comment: Interpretive Data Percent cell count reference ranges are not reported, since discordance with absolute values may lead to misinterpretation of CBC data. Current Interpretive Data was last revised on 2018. Basophil pct 0.5 % [facility] Comment: Interpretive Data Percent cell count reference ranges are not reported, since discordance with absolute values may lead to misinterpretation of CBC data. Current Interpretive Data was last revised on 2018. Blood 10/21/2023 10:5 2 PM TROUBLE TRACER 10/21/2023 11:17 PM TROUBLE TRACER us Jimenez Henao MD LAB BLOOD ORDERABLES Final Result [facility] [address] [facility] [address] [place] [address] * (ABNORMAL) CBC with auto differential (10/21/2023 10:52 PM TROUBLE TRACER) WBC 7.7 3.8 - 9.9 K/cumm [facility] Hgb 10.4(L) 13.0 - 17.5 g/dL [facility] Hct 30.1(L) 38.9 - 50.3 % [facility] Plt 350 150 - 400 K/cumm [facility] MPV 10.8 9.1 - 12.3 fL [facility] RBC 3.31(L) 4.30 - 5.80 M/cumm [facility] MCV 90.9 81.3 - 96.4 fL [facility] MCH 31.4 27.1 - 33.3 pg [facility] MCHC 34.6 32.3 - 35.7 g/dL [facility] RDW CV 12.6 11.1 - 14.9 % [facility] RDW SD 41.8 35.7 - 48.1 fL [facility] NRBC abs 0.00 0.00 - 0.01 K/cumm [facility] Blood 10/21/2023 10:5 2 PM TROUBLE TRACER 10/21/2023 11:17 PM TROUBLE TRACER us Tia Alla Nolan [employer] LAB BLOOD ORDERABLES F inal Result Performing Organization Address City/[facility]/ZIP Co de Phone Number [facility] [place] [address] * Basic metabolic panel (10/21/2023 10:52 PM TROUBLE TRACER) Sodium 136 135 - 145 mmol/L [facility] Potassium, pl 4.5 3.3 - 4.9 mmol/L [facility] Chloride 99 97 - 110 mmol/L [facility] CO2 27 22 - 32 mmol/L [facility] Anion gap 10 2 - 15 mmol/L [facility] BUN 12 6 - 25 mg/dL [facility] Creatinine 1.02 0.80 - 1.30 mg/dL [facility] Glucose 117 70 - 199 mg/dL [facility] Comment: Interpretive Data Fasting glucose >/= [...] 2022. Calcium 8.7 8.5 - 10.3 mg/dL [facility] Blood 10/21/2023 10:5 2 PM TROUBLE TRACER 10/21/2023 11:16 PM TROUBLE TRACER us Tia Nolan [employer] LAB BLOOD ORDERABLES F inal Result Performing Organization Address [facility] Co de Phone Number [facility] [place] [address] * eGFR (10/20/2023 9:38 PM TROUBLE TRACER) eGFR 80 >=60 mL/min/1. 73 m2 [facility] Comment: Interpretive Data Reference Interval Normal [...] last reviewed 2021. Blood 10/20/2023 9:38 PM TROUBLE TRACER 10/20/2023 10:25 PM TROUBLE TRACER us Jimenez Henao MD LAB BLOOD ORDERABLES Final Result [facility] [address] [place] [address] * (ABNORMAL) Differential, auto (10/20/2023 9:38 PM TROUBLE TRACER) Neutrophil abs 5.9 1.5 - 6.5 K/cumm [facility] Imm gran abs 0.2(H) 0.0 - 0.1 K/cumm [facility] Lymphocyte abs 1.1 0.8 - 3.3 K/cumm [facility] Monocyte abs 1.1(H) 0.2 - 0.8 K/cumm [facility] Eosinophil abs 0.2 0.0 - 0.5 K/cumm [facility] Basophil abs 0.1 0.0 - 0.1 K/cumm [facility] Neutrophil pct 69.2 % [facility] Comment: Interpretive Data Percent cell count reference ranges are not reported, since discordance with absolute values may lead to misinterpretation of CBC data. Current Interpretive Data was last revised on 2018. Imm gran pct 2.3 % [facility] Comment: Interpretive Data Percent cell count reference ranges are not reported, since discordance with absolute values may lead to misinterpretation of CBC data. Current Interpretive Data was last revised on 2018. Lymphocyte pct 13.2 % [facility] Comment: Interpretive Data Percent cell count reference ranges are not reported, since discordance with absolute values may lead to misinterpretation of CBC data. Current Interpretive Data was last revised on 2018. Monocyte pct 12.9 % [facility] Comment: Interpretive Data Percent cell count reference ranges are not reported, since discordance with absolute values may lead to misinterpretation of CBC data. Current Interpretive Data was last revised on 2018. Eosinophil pct 1.8 % [facility] Comment: Interpretive Data Percent cell count reference ranges are not reported, since discordance with absolute values may lead to misinterpretation of CBC data. Current Interpretive Data was last revised on 2018. Basophil pct 0.6 % [facility] Comment: Interpretive Data Percent cell count reference ranges are not reported, since discordance with absolute values may lead to misinterpretation of CBC data. Current Interpretive Data was last revised on 2018. Blood 10/20/2023 9:38 PM TROUBLE TRACER 10/20/2023 10:25 PM TROUBLE TRACER us Jimenez Henao MD LAB BLOOD ORDERABLES Final Result [facility] [address] [place] [address] * (ABNORMAL) CBC with auto differential (10/20/2023 9:38 PM TROUBLE TRACER) WBC 8.5 3.8 - 9.9 K/cumm [facility] Hgb 11.0(L) 13.0 - 17.5 g/dL [facility] Comment: Interpretive Data A reference range for this assay has not been established for patients with an unknown legal sex. Please refer to the laboratory test catalog for established sex-specific reference intervals. Current interpretive data was last revised on 2023. Hct 32.7(L) 38.9 - 50.3 % [facility] Comment: Interpretive Data A reference range for this assay has not been established for patients with an unknown legal sex. Please refer to the laboratory test catalog for established sex-specific reference intervals. Current interpretive data was last revised on 2023. Plt 321 150 - 400 K/cumm [facility] MPV 11.0 9.1 - 12.3 fL [facility] RBC 3.50(L) 4.30 - 5.80 M/cumm [facility] Comment: Interpretive Data A reference range for this assay has not been established for patients with an unknown legal sex. Please refer to the laboratory test catalog for established sex-specific reference intervals. Current interpretive data was last revised on 2023. MCV 93.4 81.3 - 96.4 fL [facility] MCH 31.4 27.1 - 33.3 pg [facility] MCHC 33.6 32.3 - 35.7 g/dL [facility] RDW CV 12.5 11.1 - 14.9 % [facility] RDW SD 43.2 35.7 - 48.1 fL [facility] NRBC abs 0.00 0.00 - 0.01 K/cumm [facility] Blood 10/20/2023 9:38 PM TROUBLE TRACER 10/20/2023 10:25 PM TROUBLE TRACER us Tia Nolan NP LAB BLOOD ORDERABLES F inal Result [facility] [address] Department [place] [address] * (ABNORMAL) Basic metabolic panel (10/20/2023 9:38 PM TROUBLE TRACER) Sodium 134(L) 135 - 145 mmol/L [facility] Potassium, pl 4.5 3.3 - 4.9 mmol/L [facility] Chloride 97 97 - 110 mmol/L [facility] CO2 27 22 - 32 mmol/L [facility] Anion gap 10 2 - 15 mmol/L [facility] BUN 12 6 - 25 mg/dL [facility] Creatinine 1.00 0.80 - 1.30 mg/dL [facility] Glucose 127 70 - 199 mg/dL [facility] Comment: Interpretive Data Fasting glucose >/= [...] 2022. Calcium 8.9 8.5 - 10.3 mg/dL [facility] Blood 10/20/2023 9:38 PM TROUBLE TRACER 10/20/2023 10:25 PM TROUBLE TRACER Tia Nolan [employer] LAB BLOOD ORDERABLES F inal Result [facility] [address] [place] [address] * eGFR (10/19/2023 9:11 PM TROUBLE TRACER) [facility] eGFR 81 >=60 mL/min/1. 73 m2 [facility] Comment: Interpretive Data Reference Interval Normal [...] last reviewed 2021. Blood 10/19/2023 9:11 PM TROUBLE TRACER 10/19/2023 11:30 PM TROUBLE TRACER Jimenez Henao MD LAB BLOOD ORDERABLES Final Result [facility] [address] [place] [address] * (ABNORMAL) Differential, auto (10/19/2023 9:11 PM TROUBLE TRACER) Pathologist [facility] Neutrophil abs 8.2(H) 1.5 - 6.5 K/cumm [facility] Imm gran abs 0.2(H) 0.0 - 0.1 K/cumm [facility] Lymphocyte abs 0.9 0.8 - 3.3 K/cumm [facility] Monocyte abs 0.8 0.2 - 0.8 K/cumm [facility] Eosinophil abs 0.2 0.0 - 0.5 K/cumm [facility] Basophil abs 0.1 0.0 - 0.1 K/cumm [facility] Neutrophil pct 79.6 % [facility] Comment: Interpretive Data Percent cell count reference ranges are not reported, since discordance with absolute values may lead to misinterpretation of CBC data. Current Interpretive Data was last revised on 2018. Imm gran pct 2.0 % [facility] Comment: Interpretive Data Percent cell count reference ranges are not reported, since discordance with absolute values may lead to misinterpretation of CBC data. Current Interpretive Data was last revised on 2018. Lymphocyte pct 8.3 % [facility] Comment: Interpretive Data Percent cell count reference ranges are not reported, since discordance with absolute values may lead to misinterpretation of CBC data. Current Interpretive Data was last revised on 2018. Monocyte pct 8.0 % [facility] Comment: Interpretive Data Percent cell count reference ranges are not reported, since discordance with absolute values may lead to misinterpretation of CBC data. Current Interpretive Data was last revised on 2018. Eosinophil pct 1.6 % [facility] Comment: Interpretive Data Percent cell count reference ranges are not reported, since discordance with absolute values may lead to misinterpretation of CBC data. Current Interpretive Data was last revised on 2018. Basophil pct 0.5 % [facility] Comment: Interpretive Data Percent cell count reference ranges are not reported, since discordance with absolute values may lead to misinterpretation of CBC data. Current Interpretive Data was last revised on 2018. Blood 10/19/2023 9:11 PM TROUBLE TRACER 10/19/2023 11:31 PM TROUBLE TRACER us Jimenez Henao MD LAB BLOOD ORDERABLES Final Result [facility] [address] [place] [address] * (ABNORMAL) CBC with auto differential (10/19/2023 9:11 PM TROUBLE TRACER) WBC 10.3(H) 3.8 - 9.9 K/cumm [facility] Hgb 11.0(L) 13.0 - 17.5 g/dL [facility] Comment: Interpretive Data A reference range for this assay has not been established for patients with an unknown legal sex. Please refer to the laboratory test catalog for established sex-specific reference intervals. Current interpretive data was last revised on 2023. Hct 31.6(L) 38.9 - 50.3 % [facility] Comment: Interpretive Data A reference range for this assay has not been established for patients with an unknown legal sex. Please refer to the laboratory test catalog for established sex-specific reference intervals. Current interpretive data was last revised on 2023. Plt 281 150 - 400 K/cumm [facility] MPV 11.5 9.1 - 12.3 fL [facility] RBC 3.46(L) 4.30 - 5.80 M/cumm [facility] Comment: Interpretive Data A reference range for this assay has not been established for patients with an unknown legal sex. Please refer to the laboratory test catalog for established sex-specific reference intervals. Current interpretive data was last revised on 2023. MCV 91.3 81.3 - 96.4 fL [facility] MCH 31.8 27.1 - 33.3 pg [facility] MCHC 34.8 32.3 - 35.7 g/dL [facility] RDW CV 12.7 11.1 - 14.9 % [facility] RDW SD 42.2 35.7 - 48.1 fL [facility] NRBC abs 0.00 0.00 - 0.01 K/cumm [facility] Blood 10/19/2023 9:11 PM TROUBLE TRACER 10/19/2023 11:31 PM TROUBLE TRACER Tia Nolan NP LAB BLOOD ORDERABLES F inal Result [facility] [address] Department [place] [address] * Basic metabolic panel (10/19/2023 9:11 PM TROUBLE TRACER) Sodium 135 135 - 145 mmol/L [facility] Potassium, pl 4.3 3.3 - 4.9 mmol/L [facility] Chloride 99 97 - 110 mmol/L [facility] CO2 27 22 - 32 mmol/L [facility] Anion gap 9 2 - 15 mmol/L [facility] BUN 17 6 - 25 mg/dL [facility] Creatinine 0.99 0.80 - 1.30 mg/dL [facility] Glucose 185 70 - 199 mg/dL [facility] Comment: Interpretive Data Fasting glucose >/= [...] 2022. Calcium 8.6 8.5 - 10.3 mg/dL [facility] Blood 10/19/2023 9:11 PM TROUBLE TRACER 10/19/2023 11:30 PM TROUBLE TRACER Tia Nolan [employer] LAB BLOOD ORDERABLES F inal Result [facility] [address] [place] [address] * eGFR (10/18/2023 9:29 PM TROUBLE TRACER) eGFR 87 >=60 mL/min/1. 73 m2 [facility] Comment: Interpretive Data Reference Interval Normal [...] last reviewed 2021. Blood 10/18/2023 9:29 PM TROUBLE TRACER 10/18/2023 10:27 PM TROUBLE TRACER us Jimenez Henao MD LAB BLOOD ORDERABLES Final Result [facility] [address] [place] [address] * (ABNORMAL) Differential, auto (10/18/2023 9:29 PM TROUBLE TRACER) Neutrophil abs 13.6(H) 1.5 - 6.5 K/cumm [facility] Imm gran abs 0.2(H) 0.0 - 0.1 K/cumm [facility] Lymphocyte abs 1.4 0.8 - 3.3 K/cumm [facility] Monocyte abs 1.0(H) 0.2 - 0.8 K/cumm [facility] Eosinophil abs 0.2 0.0 - 0.5 K/cumm [facility] Basophil abs 0.0 0.0 - 0.1 K/cumm [facility] Neutrophil pct 82.8 % [facility] Comment: Interpretive Data Percent cell count reference ranges are not reported, since discordance with absolute values may lead to misinterpretation of CBC data. Current Interpretive Data was last revised on 2018. Imm gran pct 1.5 % [facility] Comment: Interpretive Data Percent cell count reference ranges are not reported, since discordance with absolute values may lead to misinterpretation of CBC data. Current Interpretive Data was last revised on 2018. Lymphocyte pct 8.4 % [facility] Comment: Interpretive Data Percent cell count reference ranges are not reported, since discordance with absolute values may lead to misinterpretation of CBC data. Current Interpretive Data was last revised on 2018. Monocyte pct 6.1 % [facility] Comment: Interpretive Data Percent cell count reference ranges are not reported, since discordance with absolute values may lead to misinterpretation of CBC data. Current Interpretive Data was last revised on 2018. Eosinophil pct 1.0 % [facility] Comment: Interpretive Data Percent cell count reference ranges are not reported, since discordance with absolute values may lead to misinterpretation of CBC data. Current Interpretive Data was last revised on 2018. Basophil pct 0.2 % [facility] Comment: Interpretive Data Percent cell count reference ranges are not reported, since discordance with absolute values may lead to misinterpretation of CBC data. Current Interpretive Data was last revised on 2018. Blood 10/18/2023 9:29 PM TROUBLE TRACER 10/18/2023 10:27 PM TROUBLE TRACER Jimenez Henao MD LAB BLOOD ORDERABLES Final Result [facility] [address] [place] [address] * (ABNORMAL) CBC with auto differential (10/18/2023 9:29 PM TROUBLE TRACER) WBC 16.4(H) 3.8 - 9.9 K/cumm [facility] Hgb 11.3(L) 13.0 - 17.5 g/dL [facility] Comment: Interpretive Data A reference range for this assay has not been established for patients with an unknown legal sex. Please refer to the laboratory test catalog for established sex-specific reference intervals. Current interpretive data was last revised on 2023. Hct 32.8(L) 38.9 - 50.3 % [facility] Comment: Interpretive Data A reference range for this assay has not been established for patients with an unknown legal sex. Please refer to the laboratory test catalog for established sex-specific reference intervals. Current interpretive data was last revised on 2023. Plt 286 150 - 400 K/cumm [facility] MPV 11.3 9.1 - 12.3 fL [facility] RBC 3.53(L) 4.30 - 5.80 M/cumm [facility] Comment: Interpretive Data A reference range for this assay has not been established for patients with an unknown legal sex. Please refer to the laboratory test catalog for established sex-specific reference intervals. Current interpretive data was last revised on 2023. MCV 92.9 81.3 - 96.4 fL [facility] MCH 32.0 27.1 - 33.3 pg [facility] MCHC 34.5 32.3 - 35.7 g/dL [facility] RDW CV 12.6 11.1 - 14.9 % [facility] RDW SD 43.3 35.7 - 48.1 fL [facility] NRBC abs 0.00 0.00 - 0.01 K/cumm [facility] Blood 10/18/2023 9:29 PM TROUBLE TRACER 10/18/2023 10:27 PM TROUBLE TRACER us Tia Nolan [employer] LAB BLOOD ORDERABLES F inal Result [facility] [address] [place] [address] * (ABNORMAL) Basic metabolic panel (10/18/2023 9:29 PM TROUBLE TRACER) Sodium 132(L) 135 - 145 mmol/L [facility] Potassium, pl 4.0 3.3 - 4.9 mmol/L [facility] Chloride 97 97 - 110 mmol/L [facility] CO2 27 22 - 32 mmol/L [facility] Anion gap 8 2 - 15 mmol/L [facility] BUN 16 6 - 25 mg/dL [facility] Creatinine 0.93 0.80 - 1.30 mg/dL [facility] Glucose 151 70 - 199 mg/dL [facility] Comment: Interpretive Data Fasting glucose >/= [...] Calcium 8.2(L) 8.5 - 10.3 mg/dL [facility] Blood 10/18/2023 9:29 PM TROUBLE TRACER 10/18/2023 10:27 PM TROUBLE TRACER us Tia Nolan NP LAB BLOOD ORDERABLES F inal Result Performing Organization Address City/State/[facility] Co de Phone Number [facility] [address] [place] [address] * Dexa Axial Skeleton Bone Density 1 or 2 Site (10/18/2023 12:45 PM TROUBLE TRACER) Anatomical Region Laterality Modality Body N/A Digital Radiogra phy 10/18/2023 1:29 PM TROUBLE TRACER Impressions 10/18/2023 2:27 PM TROUBLE TRACER ?? 1. The bone mineral density of [...] Bella MD, Ph.D Narrative 10/18/2023 2:27 PM TROUBLE TRACER BONE DENSITOMETRY OF THE SPINE AND HIP [...] Fluoroscopy < 1 Hour (10/18/2023 11:27 AM TROUBLE TRACER) Narrative [id number] - 10/18/2023 11:27 AM TROUBLE TRACER The images from this study are not interpreted by Radiology. ??Please refer to the physician's procedure / OR operative note. us Gabriel Bennett MD IMG FLUOROSCOPY PROCEDURES Fide l Result Performing Organization Address [facility]/ZIP Co de Phone Number [id number] * eGFR (10/17/2023 10:52 PM TROUBLE TRACER) eGFR 83 >=60 mL/min/1. 73 m2 [facility] Comment: Interpretive Data Reference Interval Normal [...] reviewed 2021. Blood 10/17/2023 10:5 2 PM TROUBLE TRACER 10/17/2023 11:04 PM TROUBLE TRACER us Jimenez Henao MD LAB BLOOD ORDERABLES Final Result Performing Organization Address [facility] Co de Phone Number [facility] [address] [place] [address] * (ABNORMAL) Differential, auto (10/17/2023 10:52 PM TROUBLE TRACER) Neutrophil abs 9.0(H) 1.5 - 6.5 K/cumm [facility] Imm gran abs 0.2(H) 0.0 - 0.1 K/cumm [facility] Lymphocyte abs 1.4 0.8 - 3.3 K/cumm [facility] Monocyte abs 0.8 0.2 - 0.8 K/cumm [facility] Eosinophil abs 0.2 0.0 - 0.5 K/cumm [facility] Basophil abs 0.1 0.0 - 0.1 K/cumm [facility] Neutrophil pct 77.7 % [facility] Comment: Interpretive Data Percent cell count reference ranges are not reported, since discordance with absolute values may lead to misinterpretation of CBC data. Current Interpretive Data was last revised on 2018. Imm gran pct 1.7 % [facility] Comment: Interpretive Data Percent cell count reference ranges are not reported, since discordance with absolute values may lead to misinterpretation of CBC data. Current Interpretive Data was last revised on 2018. Lymphocyte pct 11.7 % [facility] Comment: Interpretive Data Percent cell count reference ranges are not reported, since discordance with absolute values may lead to misinterpretation of CBC data. Current Interpretive Data was last revised on 2018. Monocyte pct 6.8 % [facility] Comment: Interpretive Data Percent cell count reference ranges are not reported, since discordance with absolute values may lead to misinterpretation of CBC data. Current Interpretive Data was last revised on 2018. Eosinophil pct 1.7 % [facility] Comment: Interpretive Data Percent cell count reference ranges are not reported, since discordance with absolute values may lead to misinterpretation of CBC data. Current Interpretive Data was last revised on 2018. Basophil pct 0.4 % [facility] Comment: Interpretive Data Percent cell count reference ranges are not reported, since discordance with absolute values may lead to misinterpretation of CBC data. Current Interpretive Data was last revised on 2018. Blood 10/17/2023 10:5 2 PM TROUBLE TRACER 10/17/2023 11:04 PM TROUBLE TRACER us Jimenez Henao MD LAB BLOOD ORDERABLES Final Result Performing Organization Address [facility] de Phone Number [facility] [place] [address] * aPTT (10/17/2023 10:52 PM TROUBLE TRACER) aPTT 32 28 - 38 sec [facility] Comment: Interpretive Data Heparin therapeutic range: 66.0 - 100.0 seconds. Range based on correlation with therapeutic heparin activity range of 0.3 - 0.7 Units/mL. Current interpretive data was last revised on 2023. Blood 10/17/2023 10:5 2 PM TROUBLE TRACER 10/17/2023 11:07 PM TROUBLE TRACER Result Caity Henao MD LAB BLOOD ORDERABLES Final Result Performing Organization Address [facility] de Phone Number [facility] [place] [address] * Protime-INR (10/17/2023 10:52 PM TROUBLE TRACER) PT 12.6 10.3 - 13.7 sec [facility] INR 1.11 0.90 - 1.20 [facility] Comment: Interpretive data Oral anticoagulant therapeutic ranges: Venous thromboembolism prophylaxis or treatment: 2.0-3.0 CARDIOLOGY Standard range: 2.0-3.0 High-intensity range: 2.5-3.5 Refer to indication-specific guidelines for appropriate target ranges for prosthetic heart valve replacement. Current interpretive data was last revised on 2019. Blood 10/17/2023 10:5 2 PM TROUBLE TRACER 10/17/2023 11:07 PM TROUBLE TRACER Result Caity Henao MD LAB BLOOD ORDERABLES Final Result Performing Organization Address [facility] de Phone Number [facility] [place] [address] * (ABNORMAL) CBC with auto differential (10/17/2023 10:52 PM TROUBLE TRACER) [facility] WBC 11.6(H) 3.8 - 9.9 K/cumm [facility] Hgb 11.7(L) 13.0 - 17.5 g/dL [facility] Comment: Interpretive Data A reference range for this assay has not been established for patients with an unknown legal sex. Please refer to the laboratory test catalog for established sex-specific reference intervals. Current interpretive data was last revised on 2023. Hct 33.3(L) 38.9 - 50.3 % [facility] Comment: Interpretive Data A reference range for this assay has not been established for patients with an unknown legal sex. Please refer to the laboratory test catalog for established sex-specific reference intervals. Current interpretive data was last revised on 2023. Plt 256 150 - 400 K/cumm [facility] MPV 11.0 9.1 - 12.3 fL [facility] RBC 3.68(L) 4.30 - 5.80 M/cumm [facility] Comment: Interpretive Data A reference range for this assay has not been established for patients with an unknown legal sex. Please refer to the laboratory test catalog for established sex-specific reference intervals. Current interpretive data was last revised on 2023. MCV 90.5 81.3 - 96.4 fL [facility] MCH 31.8 27.1 - 33.3 pg [facility] MCHC 35.1 32.3 - 35.7 g/dL [facility] RDW CV 12.5 11.1 - 14.9 % [facility] RDW SD 41.4 35.7 - 48.1 fL [facility] NRBC abs 0.00 0.00 - 0.01 K/cumm [facility] Blood 10/17/2023 10:5 2 PM TROUBLE TRACER 10/17/2023 11:04 PM TROUBLE TRACER us Tia Nolan [employer] LAB BLOOD ORDERABLES F inal Result [facility] [place] [address] * (ABNORMAL) Basic metabolic panel (10/17/2023 10:52 PM TROUBLE TRACER) Sodium 133(L) 135 - 145 mmol/L [facility] Potassium, pl 3.5 3.3 - 4.9 mmol/L [facility] Chloride 100 97 - 110 mmol/L [facility] CO2 27 22 - 32 mmol/L [facility] Anion gap 6 2 - 15 mmol/L [facility] BUN 12 6 - 25 mg/dL [facility] Creatinine 0.97 0.80 - 1.30 mg/dL [facility] Glucose 186 70 - 199 mg/dL [facility] Comment: Interpretive Data Fasting glucose >/= [...] 2022. Calcium 8.4(L) 8.5 - 10.3 mg/dL [facility] Blood 10/17/2023 10:5 2 PM TROUBLE TRACER 10/17/2023 11:04 PM TROUBLE TRACER us Tia Nolan [employer] LAB BLOOD ORDERABLES F inal Result Performing Organization Address [facility] Co de Phone Number [facility] [place] [address] * CT Urogram WO 3D (10/16/2023 12:36 PM TROUBLE TRACER) Anatomical Region Laterality Modality Body N/A Computed Tomogra phy 10/16/2023 1:29 PM TROUBLE TRACER Impressions 10/16/2023 1:59 PM TROUBLE TRACER 1. ??Postprocedural changes of percutaneous nephrostomy tube [...] Eric Irene M.D. Narrative 10/16/2023 1:59 PM TROUBLE TRACER EXAMINATION: CT UROGRAPHY WITH AND WITHOUT CONTRAST [...] IR Percutaneous Nephrostomy Left (10/14/2023 1:38 PM TROUBLE TRACER) Anatomical Region Laterality Modality Body Left X-Ray Angiograph y 10/14/2023 3:34 PM TROUBLE TRACER Impressions 10/14/2023 7:38 PM TROUBLE TRACER Successful left percutaneous nephrostomy. Impacted stone in [...] Kendrick Hughes M.D. Narrative 10/14/2023 7:38 PM TROUBLE TRACER EXAMINATION: IR PERCUTANEOUS NEPHROSTOMY LEFT HISTORY/INDICATION: ??73-year-old [...] was obtained. Prior to beginning the procedure, [place] Protocol was performed to confirm the patient's [...] was dilated before placing a 10 Fr Mcalister catheter. ??The retaining loop was formed and [...] was obtained. Prior to beginning the procedure, [place] Protocol was performed to confirm the patient's [...] was dilated before placing a 10 Fr Mcalister catheter. The retaining loop was formed and [...] (ABNORMAL) Urinalysis, microscopic only (10/14/2023 1:35 PM TROUBLE TRACER) WBC, ur 0-5 0 - 5 /HPF [facility] RBC, ur >50(A) 0 - 2 /HPF [facility] Epithelial cells, squamous, ur 1-5 0 - 5 /HPF [facility] Bacteria, ur Trace(A) [facility] Mucous, ur Present(A) [facility] Urine 10/14/2023 1:35 PM TROUBLE TRACER 10/14/2023 3:26 PM TROUBLE TRACER Marquise Lim MD LAB URINE ORDERABLES Final Result Performing Organization Address [facility]/ZIP Co de Phone Number [facility] [place] [address] * Urine culture Urine, kidney aspirate Left (10/14/2023 1:35 PM TROUBLE TRACER) Report Final Report: No growth [facility] Urine, kidney aspirate (Left) 10/14/2023 1:35 PM TROUBLE TRACER 10/14/2023 3:52 PM TROUBLE TRACER Narrative [facility] - 10/16/2023 4:49 PM TROUBLE TRACER Testing performed by [facility] ([phone]) Marquise Lim MD LAB MICROBIOLOGY - GENERAL ORDERABLES Final Result Performing Organization Address City/[facility]/ZIP Co de Phone Number [facility] [place] [address] * (ABNORMAL) Urinalysis reflex to microscopic and culture Urine (10/14/2023 1:35 PM TROUBLE TRACER) Color, ur Red(A) Yellow [facility] Clarity, ur Cloudy(A) Clear [facility] Specific gravity, ur 1.015 1.003 - 1.030 [facility] pH, urine 6.0 [facility] Comment: Interpretive Data ? Urine pH is affected by diet, medications, systemic acid-base disturbances, and renal tubular function. ??pH may affect urinary stone formation. ??For example, urine pH below 6.0 may help reduce the tendency for calcium phosphate stones and pH greater than 6.0 may reduce the tendency for uric acid stone formation. Source: [facility] [employer] Current Interpretive Data was last revised on 2017 Protein, ur ql 1+(A) Negative [facility] Glucose, ur ql Negative Negative [facility] Ketones, ur Negative Negative [facility] Bilirubin, ur 1+(A) Negative [facility] Blood, ur 4+(A) Negative [facility] Urobilinogen, ur 0.2 <2.0 mg/dL [facility] Nitrite, ur Negative Negative [facility] Leukocyte esterase, ur 2+(A) Negative [facility] UA reflex comment Reflex to microscopic UA will be performed. [facility] Urine 10/14/2023 1:35 PM TROUBLE TRACER 10/14/2023 3:26 PM TROUBLE TRACER us Marquise Lim MD LAB MICROBIOLOGY - GENERAL ORDERABLES Final Result [facility] [address] [facility] [place] [address] * US Kidney Complete (10/14/2023 7:15 AM TROUBLE TRACER) Anatomical Region Laterality Modality Kidney N/A Ultrasound 10/14/2023 6:15 PM TROUBLE TRACER Impressions 10/14/2023 6:15 PM TROUBLE TRACER 1. ??No hydronephrosis. ??Given patient had obstructive [...] Robert Yeboah M.D. Narrative 10/14/2023 6:15 PM TROUBLE TRACER EXAMINATION: COMPLETE RENAL SONOGRAM HISTORY: ??Obstructive left [...] Res ult * eGFR (10/14/2023 6:30 AM TROUBLE TRACER) eGFR 64 >=60 mL/min/1. 73 m2 [facility] Comment: Interpretive Data Reference Interval Normal [...] last reviewed 2021. Blood 10/14/2023 6:30 AM TROUBLE TRACER 10/14/2023 7:44 AM TROUBLE TRACER Marquise Lim MD LAB BLOOD ORDERABLES Final Result [facility] [address] [facility] [address] Department of Laboratories [place], [place] [id number] * (ABNORMAL) Differential, auto (10/14/2023 6:30 AM TROUBLE TRACER) Pathologist [facility] Neutrophil abs 7.4(H) 1.5 - 6.5 K/cumm [facility] Imm gran abs 0.1 0.0 - 0.1 K/cumm [facility] Lymphocyte abs 0.6(L) 0.8 - 3.3 K/cumm [facility] Monocyte abs 1.3(H) 0.2 - 0.8 K/cumm [facility] Eosinophil abs 0.1 0.0 - 0.5 K/cumm [facility] Basophil abs 0.0 0.0 - 0.1 K/cumm [facility] Neutrophil pct 79.0 % [facility] Comment: Interpretive Data Percent cell count reference ranges are not reported, since discordance with absolute values may lead to misinterpretation of CBC data. Current Interpretive Data was last revised on 2018. Imm gran pct 0.6 % [facility] Comment: Interpretive Data Percent cell count reference ranges are not reported, since discordance with absolute values may lead to misinterpretation of CBC data. Current Interpretive Data was last revised on 2018. Lymphocyte pct 6.3 % [facility] Comment: Interpretive Data Percent cell count reference ranges are not reported, since discordance with absolute values may lead to misinterpretation of CBC data. Current Interpretive Data was last revised on 2018. Monocyte pct 13.3 % [facility] Comment: Interpretive Data Percent cell count reference ranges are not reported, since discordance with absolute values may lead to misinterpretation of CBC data. Current Interpretive Data was last revised on 2018. Eosinophil pct 0.5 % [facility] Comment: Interpretive Data Percent cell count reference ranges are not reported, since discordance with absolute values may lead to misinterpretation of CBC data. Current Interpretive Data was last revised on 2018. Basophil pct 0.3 % [facility] Comment: Interpretive Data Percent cell count reference ranges are not reported, since discordance with absolute values may lead to misinterpretation of CBC data. Current Interpretive Data was last revised on 2018. Blood 10/14/2023 6:30 AM TROUBLE TRACER 10/14/2023 7:20 AM TROUBLE TRACER us Marquise Lim MD LAB BLOOD ORDERABLES Final Result [facility] [address] [place] [address] * (ABNORMAL) Comprehensive metabolic panel (10/14/2023 6:30 AM TROUBLE TRACER) Sodium 136 135 - 145 mmol/L [facility] Potassium, pl 3.4 3.3 - 4.9 mmol/L [facility] Chloride 101 97 - 110 mmol/L [facility] CO2 24 22 - 32 mmol/L [facility] Anion gap 11 2 - 15 mmol/L [facility] BUN 24 6 - 25 mg/dL [facility] Creatinine 1.20 0.80 - 1.30 mg/dL [facility] Glucose 153 70 - 199 mg/dL [facility] Comment: Interpretive Data Fasting glucose >/= [...] 2022. Calcium 8.5 8.5 - 10.3 mg/dL [facility] Bilirubin, total 0.5 0.1 - 1.2 mg/dL [facility] Protein, pl 5.8(L) 6.5 - 8.5 g/dL [facility] Albumin 2.7(L) 3.5 - 5.0 g/dL [facility] Alk phos 108 40 - 130 Units/L [facility] ALT 67(H) 7 - 55 Units/L [facility] AST 49 10 - 50 Units/L [facility] Blood 10/14/2023 6:30 AM TROUBLE TRACER 10/14/2023 7:20 AM TROUBLE TRACER us Marquise Lim MD LAB BLOOD ORDERABLES Final Result [facility] [address] [place] [address] * (ABNORMAL) CBC with auto differential (10/14/2023 6:30 AM TROUBLE TRACER) [facility] WBC 9.4 3.8 - 9.9 K/cumm [facility] Hgb 11.4(L) 13.0 - 17.5 g/dL [facility] Comment: Interpretive Data A reference range for this assay has not been established for patients with an unknown legal sex. Please refer to the laboratory test catalog for established sex-specific reference intervals. Current interpretive data was last revised on 2023. Hct 32.2(L) 38.9 - 50.3 % [facility] Comment: Interpretive Data A reference range for this assay has not been established for patients with an unknown legal sex. Please refer to the laboratory test catalog for established sex-specific reference intervals. Current interpretive data was last revised on 2023. Plt 134(L) 150 - 400 K/cumm [facility] MPV 12.0 9.1 - 12.3 fL [facility] RBC 3.53(L) 4.30 - 5.80 M/cumm [facility] Comment: Interpretive Data A reference range for this assay has not been established for patients with an unknown legal sex. Please refer to the laboratory test catalog for established sex-specific reference intervals. Current interpretive data was last revised on 2023. MCV 91.2 81.3 - 96.4 fL [facility] MCH 32.3 27.1 - 33.3 pg [facility] MCHC 35.4 32.3 - 35.7 g/dL [facility] RDW CV 12.8 11.1 - 14.9 % [facility] RDW SD 42.2 35.7 - 48.1 fL [facility] NRBC abs 0.00 0.00 - 0.01 K/cumm [facility] Blood 10/14/2023 6:30 AM TROUBLE TRACER 10/14/2023 7:20 AM TROUBLE TRACER us Marquise Lim MD LAB BLOOD ORDERABLES Final Result [facility] [address] [facility] [address] [place] [address] * Blood culture Blood (10/13/2023 10:59 PM TROUBLE TRACER) Report Final Report: No growth [facility] Blood 10/13/2023 10:5 9 PM TROUBLE TRACER 10/14/2023 12:27 AM TROUBLE TRACER Narrative [facility] - 10/18/2023 7:00 AM TROUBLE TRACER Collection->Peripheral 1. ?Blood cultures are incubated for [...] organism identification may be performed using the Stellarigene Gram-Positive Blood Culture Assay. This assay detects microbial DNA in positive blood culture broth via hybridization of target DNA to capture oligonucleotides on a microarray. This assay has been cleared by the [place] Food and Drug Administration and its performance characteristics have been verified by the [facility]. 5. ?For questions about this culture, contact the Microbiology Laboratory at [phone]. Interpretive data was last revised on 2020. Marquise Lim MD LAB MICROBIOLOGY - GENERAL ORDERABLES Final Result [facility] [address] [facility] [place] [address] * Blood culture Blood (10/13/2023 11:01 AM TROUBLE TRACER) Report Final Report: No growth [facility]AGO[facility] Blood 10/13/2023 11:0 1 AM TROUBLE TRACER 10/13/2023 12:16 PM TROUBLE TRACER Narrative [facility] - 10/18/2023 8:10 AM TROUBLE TRACER 1. ?Blood cultures are incubated for 4 [...] organism identification may be performed using the Eventable Gram-Positive Blood Culture Assay. This assay detects microbial DNA in positive blood culture broth via hybridization of target DNA to capture oligonucleotides on a microarray. This assay has been cleared by the [place] Food and Drug Administration and its performance characteristics have been verified by the [facility]. 5. ?For questions about this culture, contact the Microbiology Laboratory at [phone]. Interpretive data was last revised on 2020. Marquise Lim MD LAB MICROBIOLOGY - GENERAL ORDERABLES Final Result [facility] [address] [facility] [address] Department [place] [address] * [place] Fluoroscopy < 1 Hour (10/13/2023 9:48 AM TROUBLE TRACER) Anatomical Region Laterality Modality Body N/A X-Ray Angiograph y 10/13/2023 7:06 PM TROUBLE TRACER Impressions 10/14/2023 1:30 PM TROUBLE TRACER Unsuccessful attempt at left nephrostomy placement in this patient with a nondilated system. Dictated by: Ana Alfaro M.D. The radiology attending physician has personally reviewed this study, and had reviewed and/or edited this written report and agrees with it. Electronically signed by: Rg Mar M.D. Narrative 10/14/2023 1:30 PM TROUBLE TRACER EXAMINATION: FL FLUOROSCOPY < 1 HOUR HISTORY/INDICATION: [...] was obtained. Prior to beginning the procedure, [place] Protocol was performed to confirm the patient's [...] was obtained. Prior to beginning the procedure, [place] Protocol was performed to confirm the patient's [...] inal Result * eGFR (10/13/2023 6:50 AM TROUBLE TRACER) eGFR >90 >=60 mL/min/1. 73 m2 [facility] Comment: Interpretive Data Reference Interval Normal [...] last reviewed 2021. Blood 10/13/2023 6:50 AM TROUBLE TRACER 10/13/2023 7:55 AM TROUBLE TRACER us Severo Merlos MD LAB BLOOD ORDERABLES Final R esult [facility] [address] [place] [address] * (ABNORMAL) Differential, auto (10/13/2023 6:50 AM TROUBLE TRACER) Neutrophil abs 5.8 1.5 - 6.5 K/cumm [facility] Imm gran abs 0.0 0.0 - 0.1 K/cumm [facility] Lymphocyte abs 0.2(L) 0.8 - 3.3 K/cumm [facility] Monocyte abs 0.2 0.2 - 0.8 K/cumm [facility] Eosinophil abs 0.0 0.0 - 0.5 K/cumm [facility] Basophil abs 0.0 0.0 - 0.1 K/cumm [facility] Neutrophil pct 92.8 % [facility] Comment: Interpretive Data Percent cell count reference ranges are not reported, since discordance with absolute values may lead to misinterpretation of CBC data. Current Interpretive Data was last revised on 2018. Imm gran pct 0.5 % [facility] Comment: Interpretive Data Percent cell count reference ranges are not reported, since discordance with absolute values may lead to misinterpretation of CBC data. Current Interpretive Data was last revised on 2018. Lymphocyte pct 2.7 % [facility] Comment: Interpretive Data Percent cell count reference ranges are not reported, since discordance with absolute values may lead to misinterpretation of CBC data. Current Interpretive Data was last revised on 2018. Monocyte pct 3.5 % [facility] Comment: Interpretive Data Percent cell count reference ranges are not reported, since discordance with absolute values may lead to misinterpretation of CBC data. Current Interpretive Data was last revised on 2018. Eosinophil pct 0.2 % [facility] Comment: Interpretive Data Percent cell count reference ranges are not reported, since discordance with absolute values may lead to misinterpretation of CBC data. Current Interpretive Data was last revised on 2018. Basophil pct 0.3 % [facility] Comment: Interpretive Data Percent cell count reference ranges are not reported, since discordance with absolute values may lead to misinterpretation of CBC data. Current Interpretive Data was last revised on 2018. Blood 10/13/2023 6:50 AM TROUBLE TRACER 10/13/2023 7:55 AM TROUBLE TRACER us Severo Merlos MD LAB BLOOD ORDERABLES Final R esult [facility] [address] [place] [address] * (ABNORMAL) CBC with auto differential (10/13/2023 6:50 AM TROUBLE TRACER) [facility] WBC 6.2 3.8 - 9.9 K/cumm [facility] Hgb 13.3 13.0 - 17.5 g/dL [facility] Comment: Interpretive Data A reference range for this assay has not been established for patients with an unknown legal sex. Please refer to the laboratory test catalog for established sex-specific reference intervals. Current interpretive data was last revised on 2023. Hct 37.0(L) 38.9 - 50.3 % [facility] Comment: Interpretive Data A reference range for this assay has not been established for patients with an unknown legal sex. Please refer to the laboratory test catalog for established sex-specific reference intervals. Current interpretive data was last revised on 2023. Plt 143(L) 150 - 400 K/cumm [facility] MPV 11.6 9.1 - 12.3 fL [facility] RBC 4.11(L) 4.30 - 5.80 M/cumm [facility] Comment: Interpretive Data A reference range for this assay has not been established for patients with an unknown legal sex. Please refer to the laboratory test catalog for established sex-specific reference intervals. Current interpretive data was last revised on 2023. MCV 90.0 81.3 - 96.4 fL [facility] MCH 32.4 27.1 - 33.3 pg [facility] MCHC 35.9(H) 32.3 - 35.7 g/dL [facility] RDW CV 12.8 11.1 - 14.9 % [facility] RDW SD 41.8 35.7 - 48.1 fL [facility] NRBC abs 0.00 0.00 - 0.01 K/cumm [facility] Blood 10/13/2023 6:50 AM TROUBLE TRACER 10/13/2023 7:55 AM TROUBLE TRACER us Severo Merlos MD LAB BLOOD ORDERABLES Final R esult [facility] [address] [place] [address] * (ABNORMAL) Comprehensive metabolic panel (10/13/2023 6:50 AM TROUBLE TRACER) Sodium 137 135 - 145 mmol/L [facility] Potassium, pl 3.7 3.3 - 4.9 mmol/L [facility] Chloride 101 97 - 110 mmol/L [facility] CO2 26 22 - 32 mmol/L [facility] Anion gap 10 2 - 15 mmol/L [facility] BUN 17 6 - 25 mg/dL [facility] Creatinine 0.82 0.80 - 1.30 mg/dL [facility] Glucose 160 70 - 199 mg/dL [facility] Comment: Interpretive Data Fasting glucose >/= [...] 2022. Calcium 9.1 8.5 - 10.3 mg/dL [facility] Bilirubin, total 0.7 0.1 - 1.2 mg/dL [facility] Protein, pl 6.8 6.5 - 8.5 g/dL [facility] Albumin 3.6 3.5 - 5.0 g/dL [facility] Alk phos 113 40 - 130 Units/L [facility] ALT 68(H) 7 - 55 Units/L [facility] Comment:Reviewed AST 50 10 - 50 Units/L [facility] Blood 10/13/2023 6:50 AM TROUBLE TRACER 10/13/2023 7:55 AM TROUBLE TRACER Severo Merlos MD LAB BLOOD ORDERABLES Final R esult Performing Organization Address City/[facility]/ZIP Co de Phone Number [facility] [address] [place] [address] * [place] Fluoroscopy < 1 Hour (10/13/2023 3:00 AM TROUBLE TRACER) Narrative [facility] - 10/13/2023 10:04 AM TROUBLE TRACER The images from this study are not interpreted by Radiology. ??Please refer to the physician's procedure / OR operative note. Severo Merlos MD IMG FLUOROSCOPY PROCEDURES F inal Result [id number] * MRI Spine Total Complete W WO Contrast (10/12/2023 11:44 PM TROUBLE TRACER) Anatomical Region Laterality Modality Spine N/A Magnetic Resonan ce 10/13/2023 12:4 6 AM TROUBLE TRACER Impressions 10/13/2023 11:39 AM TROUBLE TRACER 1. ??Redemonstrated degenerative disc disease of the [...] Kym Buckley M.D. Narrative 10/13/2023 11:39 AM TROUBLE TRACER EXAMINATION: 1. Magnetic resonance imaging (MRI) of [...] * Blood culture Blood (10/12/2023 9:38 PM TROUBLE TRACER) Report Final Report: No growth [facility] Blood 10/12/2023 9:38 PM TROUBLE TRACER 10/12/2023 9:59 PM TROUBLE TRACER Narrative [facility] - 10/17/2023 7:00 AM TROUBLE TRACER Second site Collection->Peripheral 1. ?Blood cultures are [...] organism identification may be performed using the Stellarigene Gram-Positive Blood Culture Assay. This assay detects microbial DNA in positive blood culture broth via hybridization of target DNA to capture oligonucleotides on a microarray. This assay has been cleared by the [place] Food and Drug Administration and its performance characteristics have been verified by the [facility]. 5. ?For questions about this culture, contact the Microbiology Laboratory at [phone]. Interpretive data was last revised on 2020. us Amol Hargrove MD LAB MICROBIOLOGY - QMedicVA ORDERABLES Final Result [facility] [address] [facility] [address] [place] [address] * CT Chest Abdomen Pelvis W Contrast (10/12/2023 9:00 PM TROUBLE TRACER) Anatomical Region Laterality Modality Body N/A Computed Tomogra phy 10/12/2023 9:35 PM TROUBLE TRACER Impressions 10/13/2023 10:26 AM TROUBLE TRACER 1. ??Obstructing renal calculus in unchanged position [...] Mich Cabrera M.D. Narrative 10/13/2023 10:26 AM TROUBLE TRACER EXAMINATION: CT CHEST ABDOMEN PELVIS W CONTRAST [...] (ABNORMAL) Erythrocyte sedimentation rate (10/12/2023 7:50 PM TROUBLE TRACER) Erythrocyte sedimentation rate 48(H) 1 - 20 mm/hr [facility] Blood 10/12/2023 7:50 PM TROUBLE TRACER 10/12/2023 8:11 PM TROUBLE TRACER Rafael Cowan MD LAB BLOOD ORDERABLES Fin al Result [facility] [address] [facility] [address] Department [place] [address] * (ABNORMAL) CRP (acute phase) (10/12/2023 7:50 PM TROUBLE TRACER) CRP 210.7(H) <=10.0 mg/L [facility] Blood 10/12/2023 7:50 PM TROUBLE TRACER 10/12/2023 8:11 PM TROUBLE TRACER Rafael Cowan MD LAB BLOOD ORDERABLES Fin al Result Performing Organization Address City/[facility] Co de Phone Number [facility] [address] [place] [address] * eGFR (10/12/2023 7:50 PM TROUBLE TRACER) eGFR 81 >=60 mL/min/1. 73 m2 [facility] Comment: Interpretive Data Reference Interval Normal [...] last reviewed 2021. Blood 10/12/2023 7:50 PM TROUBLE TRACER 10/12/2023 8:23 PM TROUBLE TRACER Rafael Cowan MD LAB BLOOD ORDERABLES Fin al Result Performing Organization Address City/[facility] Co de Phone Number [facility] [place] [address] * (ABNORMAL) Urine culture Urine (10/12/2023 7:50 PM TROUBLE TRACER) Report Final Report: Greater than or equal to 100,000 colonies/mL of Escherichia coli Greater than or equal to 100,000 colonies/mL of Escherichia coli #2 For susceptibility results, refer to accession number [id number] on the urine culture from 10/11/23 (.) [facility] Organism ESCHERICHIA COLI [facility] Organism ESCHERICHIA COLI [facility] Urine 10/12/2023 7:50 PM TROUBLE TRACER 10/12/2023 9:46 PM TROUBLE TRACER Narrative [facility] - 10/14/2023 9:24 AM TROUBLE TRACER Urine culture reflexed based upon urinalysis results. Testing performed by [facility] ([phone]) Rafael Cowan MD LAB MICROBIOLOGY - GENER AL ORDERABLES Final Result Performing Organization Address City/[facility] [place] [address] * (ABNORMAL) Urinalysis, microscopic only (10/12/2023 7:50 PM TROUBLE TRACER) WBC, ur >50(A) 0 - 5 /HPF [facility] RBC, ur 6-10(A) 0 - 2 /HPF [facility] Bacteria, ur 3+(A) [facility] Culture Reflex Comment Reflex to urine culture will be performed. [facility] Urine 10/12/2023 7:50 PM TROUBLE TRACER 10/12/2023 8:11 PM TROUBLE TRACER Rafael Cowan MD LAB URINE ORDERABLES Fin al Result Performing Organization Address City/[facility]/ZIP Co de Phone Number [facility] [place] [address] * (ABNORMAL) Differential, auto (10/12/2023 7:50 PM TROUBLE TRACER) Neutrophil abs 6.4 1.5 - 6.5 K/cumm [facility] Imm gran abs 0.0 0.0 - 0.1 K/cumm [facility] Lymphocyte abs 0.7(L) 0.8 - 3.3 K/cumm [facility] Monocyte abs 0.9(H) 0.2 - 0.8 K/cumm [facility] Eosinophil abs 0.0 0.0 - 0.5 K/cumm [facility] Basophil abs 0.0 0.0 - 0.1 K/cumm [facility] Neutrophil pct 79.1 % [facility] Comment: Interpretive Data Percent cell count reference ranges are not reported, since discordance with absolute values may lead to misinterpretation of CBC data. Current Interpretive Data was last revised on 2018. Imm gran pct 0.5 % [facility] Comment: Interpretive Data Percent cell count reference ranges are not reported, since discordance with absolute values may lead to misinterpretation of CBC data. Current Interpretive Data was last revised on 2018. Lymphocyte pct 8.4 % [facility] Comment: Interpretive Data Percent cell count reference ranges are not reported, since discordance with absolute values may lead to misinterpretation of CBC data. Current Interpretive Data was last revised on 2018. Monocyte pct 11.4 % [facility] Comment: Interpretive Data Percent cell count reference ranges are not reported, since discordance with absolute values may lead to misinterpretation of CBC data. Current Interpretive Data was last revised on 2018. Eosinophil pct 0.4 % [facility] Comment: Interpretive Data Percent cell count reference ranges are not reported, since discordance with absolute values may lead to misinterpretation of CBC data. Current Interpretive Data was last revised on 2018. Basophil pct 0.2 % [facility] Comment: Interpretive Data Percent cell count reference ranges are not reported, since discordance with absolute values may lead to misinterpretation of CBC data. Current Interpretive Data was last revised on 2018. Blood 10/12/2023 7:50 PM TROUBLE TRACER 10/12/2023 8:11 PM TROUBLE TRACER us Rafael Cowan MD LAB BLOOD ORDERABLES Fin al Result Performing Organization Address [facility] Co de Phone Number LAURA ZARAGOZA [facility] Department [place] [address] * Blood culture Blood (10/12/2023 7:50 PM TROUBLE TRACER) Report Final Report: No growth [facility] Blood 10/12/2023 7:50 PM TROUBLE TRACER 10/12/2023 8:32 PM TROUBLE TRACER Narrative [facility] - 10/17/2023 7:00 AM TROUBLE TRACER Collection->Peripheral 1. ?Blood cultures are incubated for [...] organism identification may be performed using the Stellarigene Gram-Positive Blood Culture Assay. This assay detects microbial DNA in positive blood culture broth via hybridization of target DNA to capture oligonucleotides on a microarray. This assay has been cleared by the [place] Food and Drug Administration and its performance characteristics have been verified by the [facility]. 5. ?For questions about this culture, contact the Microbiology Laboratory at [phone]. Interpretive data was last revised on 2020. us Amol Hargrove MD LAB MICROBIOLOGY - GE NERAL ORDERABLES Final Result Performing Organization Address [facility] Co de Phone Number LAURA ZARAGOZA [facility] Department [place] [address] * Lactate (10/12/2023 7:50 PM TROUBLE TRACER) Lactate 1.1 0.7 - 2.0 mmol/L [facility] Blood 10/12/2023 7:50 PM TROUBLE TRACER 10/12/2023 8:23 PM TROUBLE TRACER Amol Hargrove MD LAB BLOOD ORDERABLES Final Result [facility] [address] [facility] [place] [address] * (ABNORMAL) Urinalysis reflex to microscopic and culture Urine (10/12/2023 7:50 PM TROUBLE TRACER) Color, ur Camilo Yellow [facility] Clarity, ur Turbid(A) Clear [facility] Specific gravity, ur 1.025 1.003 - 1.030 [facility] pH, urine 6.0 [facility] Comment: Interpretive Data ? Urine pH is affected by diet, medications, systemic acid-base disturbances, and renal tubular function. ??pH may affect urinary stone formation. ??For example, urine pH below 6.0 may help reduce the tendency for calcium phosphate stones and pH greater than 6.0 may reduce the tendency for uric acid stone formation. Source: [facility] Current Interpretive Data was last revised on 2017 Protein, ur ql 3+(A) Negative [facility] Glucose, ur ql Negative Negative [facility] Ketones, ur Negative Negative [facility] Bilirubin, ur Negative Negative [facility] Blood, ur 2+(A) Negative [facility] Urobilinogen, ur >=8.0(A) <2.0 mg/dL [facility] Nitrite, ur Negative Negative [facility] Leukocyte esterase, ur 3+(A) Negative [facility] UA reflex comment Reflex to microscopic UA will be performed. [facility] Urine 10/12/2023 7:50 PM TROUBLE TRACER 10/12/2023 8:11 PM TROUBLE TRACER us Rafael Cowan MD LAB MICROBIOLOGY - GENER AL ORDERABLES Final Result [facility] Department [place] [address] * (ABNORMAL) CBC with auto differential (10/12/2023 7:50 PM TROUBLE TRACER) Pathologist [facility] WBC 8.1 3.8 - 9.9 K/cumm [facility] Hgb 13.7 13.0 - 17.5 g/dL [facility] Comment: Interpretive Data A reference range for this assay has not been established for patients with an unknown legal sex. Please refer to the laboratory test catalog for established sex-specific reference intervals. Current interpretive data was last revised on 2023. Hct 38.5(L) 38.9 - 50.3 % [facility] Comment: Interpretive Data A reference range for this assay has not been established for patients with an unknown legal sex. Please refer to the laboratory test catalog for established sex-specific reference intervals. Current interpretive data was last revised on 2023. Plt 155 150 - 400 K/cumm [facility] MPV 11.3 9.1 - 12.3 fL [facility] RBC 4.15(L) 4.30 - 5.80 M/cumm [facility] Comment: Interpretive Data A reference range for this assay has not been established for patients with an unknown legal sex. Please refer to the laboratory test catalog for established sex-specific reference intervals. Current interpretive data was last revised on 2023. MCV 92.8 81.3 - 96.4 fL [facility] MCH 33.0 27.1 - 33.3 pg [facility] MCHC 35.6 32.3 - 35.7 g/dL [facility] RDW CV 12.7 11.1 - 14.9 % [facility] RDW SD 43.3 35.7 - 48.1 fL [facility] NRBC abs 0.00 0.00 - 0.01 K/cumm [facility] Blood 10/12/2023 7:50 PM TROUBLE TRACER 10/12/2023 8:11 PM TROUBLE TRACER Rafael Cowan MD LAB BLOOD ORDERABLES Fin al Result Performing Organization Address City/[facility]/ZIP Co de Phone Number [facility] [place] [address] * (ABNORMAL) Basic metabolic panel (10/12/2023 7:50 PM TROUBLE TRACER) [facility] Sodium 133(L) 135 - 145 mmol/L [facility] Potassium, pl 3.8 3.3 - 4.9 mmol/L [facility] Chloride 97 97 - 110 mmol/L [facility] CO2 27 22 - 32 mmol/L [facility] Anion gap 9 2 - 15 mmol/L [facility] BUN 22 6 - 25 mg/dL [facility] Creatinine 0.99 0.80 - 1.30 mg/dL [facility] Glucose 166 70 - 199 mg/dL [facility] Comment: Interpretive Data Fasting glucose >/= [...] 2022. Calcium 9.1 8.5 - 10.3 mg/dL [facility] Blood 10/12/2023 7:50 PM TROUBLE TRACER 10/12/2023 8:11 PM TROUBLE TRACER Rafael Cowan MD LAB BLOOD ORDERABLES Fin al Result Performing Organization Address [facility] Co de Phone Number [facility] [place] [address] documented in this encounter Visit Diagnoses Diagnosis [...] 10/25/23 at 0806 Given 10/29/2023 4:49 AM TROUBLE TRACER 5 mg Given 10/27/2023 9:14 AM TROUBLE TRACER 5 mg Given 10/25/2023 2:34 PM TROUBLE TRACER 5 mg dilTIAZem XR (CARDIZEM CD,DILACOR XR) 24 hour capsule 240 mg 240 mg, oral, Daily, First dose on Sun10/30/23 at 0900, Do not crush, chew, cut, dissolve, open or otherwise manipulate tablet/capsule. Given 10/30/2023 9:56 AM TROUBLE TRACER 240 mg diphenhydrAMINE (BENADRYL) tab/cap 25 mg 25 mg, oral, 4 times daily PRN, itching, Starting on 10/28/23 at 0113 Given 10/28/2023 9:20 AM TROUBLE TRACER 25 mg Given 10/28/2023 1:19 AM TROUBLE TRACER 25 mg diphenhydrAMINE-zinc acetate 2-0.1 % cream topical, Daily PRN, itching, Starting on Sun10/27/23 at 0913, Apply to affected area: IV access site, Indications: Pruritus of SkinIndications:Pruritus of Skin Given 10/27/2023 9:15 PM TROUBLE TRACER Given 10/27/2023 1:11 PM TROUBLE TRACER enoxaparin (LOVENOX) syringe 80 mg 80 mg (rounded from 88.6 mg = 1 mg/kg ? 88.6 kg), subcutaneous, Every 12 hours scheduled, First dose (after last modification) on Sun10/26/23 at 1815, Indications: Pulmonary EmbolismIndications:Pulmonary Embolism Given 10/30/2023 9:56 AM TROUBLE TRACER 80 mg Right Upper Abdomen Given 10/29/2023 9:34 PM TROUBLE TRACER 80 mg Ri ght Upper Abdomen Given 10/29/2023 9:31 AM TROUBLE TRACER 80 mg Le ft Upper Abdomen gabapentin (NEURONTIN) capsule 300 mg 300 mg, oral, Every 8 hours scheduled, First dose on Sun10/23/23 at 2345, Indications: PainIndications:Pain Given 10/30/2023 3:39 PM TROUBLE TRACER 300 mg Given 10/30/2023 5:19 AM TROUBLE TRACER 300 mg Given 10/29/2023 9:34 PM TROUBLE TRACER 300 mg HYDROmorphone (DILAUDID) injection 0.5 mg 0.5 mg, intravenous, Administer over 2 Minutes, Every 2 hours PRN, 2nd line for pain, Starting on Sun10/24/23 at 2245, Indications: PainIndications:Pain Given 10/26/2023 6:35 PM TROUBLE TRACER 0.5 mg Given 10/25/2023 11:36 AM TROUBLE TRACER 0.5 mg Given 10/25/2023 8:41 AM TROUBLE TRACER 0.5 mg irbesartan (AVAPRO) tablet 300 mg 300 mg, oral, Daily, First dose on Sun10/30/23 at 0900 Given 10/30/2023 9:56 AM TROUBLE TRACER 300 mg levETIRAcetam (KEPPRA) tablet 1,000 mg 1,000 mg, oral, 2 times daily, First dose on Sun10/24/23 at 2100, May mix with 120 mL of enteral nutrition formula or disperse crushed tablets (500 mg tablet strength studied) in 10 mL of water, shake for 5 minutes to dissolve, and administer immediately via enteral feeding tube Given 10/30/2023 9:56 AM TROUBLE TRACER 1,000 mg Given 10/29/2023 9:34 PM TROUBLE TRACER 1,000 mg Given 10/29/2023 9:31 AM TROUBLE TRACER 1,000 mg lidocaine (LIDODERM) 5 % patch 2 patch 2 patch, transdermal, Administer over 12 Hours, Daily, First dose on Sun10/24/23 at 1130, Do not cover the holes on the top side of the patch., Apply to affected area: chest Medication Applied 10/28/2023 1:26 PM TROUBLE TRACER 2 patches Other (Comment) Medication Applied 10/27/2023 1:11 PM TROUBLE TRACER 2 patches Back Medication Applied 10/25/2023 11:36 AM TROUBLE TRACER 2 patches Back ondansetron (ZOFRAN) injection 4 [...] Gastric Disorder,home med Given 10/30/2023 9:56 AM TROUBLE TRACER 40 mg Given 10/29/2023 9:31 AM TROUBLE TRACER 40 mg Given 10/28/2023 9:17 AM TROUBLE TRACER 40 mg polyethylene glycol (MIRALAX) packet 17 g 17 g, oral, 2 times daily, First dose (after last modification) on Sun10/26/23 at 2100, Indications: constipationIndications:constipation Given 10/28/2023 9:16 AM TROUBLE TRACER 17 g Given 10/27/2023 9:13 AM TROUBLE TRACER 17 g ramelteon (ROZEREM) tablet 8 mg 8 mg, oral, Nightly PRN, sleep, Starting on Sun10/28/23 at 2033, Indications: Sleep-Onset InsomniaIndications:Sleep-Onset Insomnia Given 10/29/2023 10:55 PM TROUBLE TRACER 8 mg Given 10/28/2023 9:31 PM TROUBLE TRACER 8 mg senna-docusate (PERICOLACE) 8.6-50 mg per tablet 2 tablet 2 tablet, oral, 2 times daily, First dose on Sun10/23/23 at 2345, Hold for diarrhea., Indications: constipationIndications:constipation Given 10/28/2023 9:16 AM TROUBLE TRACER 2 table ts Given 10/27/2023 9:14 AM TROUBLE TRACER 2 tablets Given 10/26/2023 9:35 AM TROUBLE TRACER 2 tablets sodium chloride 0.9% flush 0.5-20 mL 0.5-20 mL, intra-catheter, Every 8 hours scheduled, First dose on Sun10/23/23 at 2345, Flush volume based on line type and size. , Indications: FlushingIndications:Flushing Given 10/30/2023 5:20 AM TROUBLE TRACER 10 mL Given 10/29/2023 9:35 PM TROUBLE TRACER 10 mL Given 10/29/2023 2:00 PM TROUBLE TRACER 10 mL sodium chloride 0.9% flush 0.5-20 mL 0.5-20 mL, intra-catheter, Every 8 hours scheduled, First dose on Sun10/23/23 at 2330, Flush volume based on line type and size. Given 10/30/2023 5:20 AM TROUBLE TRACER 10 mL Given 10/29/2023 9:35 PM TROUBLE TRACER 10 mL Given 10/29/2023 2:01 PM TROUBLE TRACER 10 mL sodium chloride 0.9% irrigation As needed, Starting on Sun10/23/23 at 1646, Intra-Op Given 10/23/2023 4:46 PM TROUBLE TRACER 1,000 mL Surgical Site tamsulosin (FLOMAX) extended release capsule 0.8 mg 0.8 mg, oral, Daily with dinner, First dose on Sun10/24/23 at 1800, Do not crush, chew, cut, dissolve, open or otherwise manipulate tablet/capsule. Given 10/29/2023 6:50 PM TROUBLE TRACER 0.8 mg Given 10/28/2023 6:11 PM TROUBLE TRACER 0.8 mg Given 10/27/2023 4:49 PM TROUBLE TRACER 0.8 mg vancomycin (VANCOCIN) solution As needed, Starting on Sun10/23/23 at 1646, Intra-Op Given 10/23/2023 4:46 PM TROUBLE TRACER 1,000 mg Surgical Site documented in this [...] Recently Administered Medications Times are shown in TROUBLE TRACER. 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
--- OUTSIDE RECORDS SUMMARY | 2024-11-05 23:03 | XMS_ITS | Encounter Summary ---
Author Organization [facility] Address [address] [place] [address] Care Team Providers Care Religion Department Chair Name Role Phone Rl Medina DO Primary Care Provider Reason for Visit * Reason Comments Urinary Problem * Auth/Cert Specialty Diagnoses / Procedures Referred By Contrussell t Referred To Contact Diagnoses Ureteral colic Procedures na Referral ID Status Reason Start Date Expiration Date Visits Re quested Visits Authorized [id number] 1 1 Encounter Details Date Type Department Care Team (Late st Contact Info) Description 10/18/2023 8:45 AM MATERIAL SCHEDULER - 10/18/2023 10:55 AM MATERIAL SCHEDULER Surgery 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 on file Not on file Not on file documented as of this encounter Last Filed Vital Signs Vital Sign Reading Time Taken Comments Blood Pressure 141/87 10/18/2023 9:00 AM MATERIAL SCHEDULER Pulse 69 10/18/2023 9:00 AM MATERIAL SCHEDULER Temperature 37.7 ??C (99.9 ??F) 10/18/2023 9:00 AM CS T Respiratory Rate 19 10/18/2023 9:00 AM MATERIAL SCHEDULER Oxygen Saturation 95% 10/18/2023 9:00 AM MATERIAL SCHEDULER Inhaled Oxygen Concentration - - Weight 81.6 kg (180 lb) 10/13/2023 4:15 AM MATERIAL SCHEDULER Height 172.7 cm (5' 8 ) 10/13/2023 4:15 AM MATERIAL SCHEDULER Body Mass Index 29.7 10/13/2023 4:15 AM MATERIAL SCHEDULER documented in this encounter Discharge Summaries * Rafael Rodriguez NP - 10/30/2023 1:19 PM CST Images from the original note were not included. Spine Inpatient Discharge Summary Admitting Provider: Hayder Vu MD Discharge Provider: Hayder Vu Fo* Primary Care Physician at Discharge: Rl MedinaBernieDO [phone] Admission Date: 10/12/2023 Discharge Date: 10/30/2023 Primary [...] URO BW MOB4 JORDAN 12/24/2023 2:20 PM [facility] BCT3 BJ N CT BJ Main IMG 12/24/2023 3:30 PM Carrie Jerez, EQUIPMENT STERILIZER SPINE BWMOB4 NS Chem/LFT Lab History Latest [...] 1 tablet (10 mg total) by mouth authorization representative before breakfast For: inflammation of the nose due to an allergy Commonly known as: ZyrTEC cholecalciferol 5,000 unit capsule Take 1 capsule (5,000 Units total) by mouth every morning For: low vitamin D levels Commonly known as: VITAMIN D-3 coenzyme Q10 100 mg capsule Take 1 capsule (100 mg total) by mouth authorization representative before breakfast cyclobenzaprine 5 mg tablet Take [...] mg capsule Take 1 tablet by mouth authorization representative before breakfast For: Supplement gabapentin 300 mg [...] says it's OK. *Do not do any depalletizer operator that cause you to twist, push [...] to previous diet Contact Information for Follow-ups [facility] (All Locations) Next Steps: Follow up Comments: Please schedule patient for follow up appointment. Section: Epilepsy Provider: First available Time Frame: First available Schedule with Transition of Care Clinic: No Questions: Please select the performing region: [facility] (All Locations) # of visits: 1 Referral Status: Pending Coordinator Review [facility] Specialty: Home Health and Hospice [address] [facility] [address] Next Steps: Follow up Questions: Service Line: [...] waterproof dressing while showering. Discharge Wound Type: Stitches/[place] -Stitches/annika will be removed at your next [...] Hayder Vu MD at 10/31/2023 3:37 PM MATERIAL SCHEDULER RIAL SCHEDULER RIAL SCHEDULER RIAL SCHEDULER documented in this encounter Discharge Instructions * Discharge Instructions* Rafael Rodriguez NP - 10/30/2023 10:21 AM MATERIAL SCHEDULER Thoracic/Lumbar Spinal Fusion Post-Operative Instructions Questions: ?? For any post-operative questions, please contact Dr. Horace Mojica???s nurse, at [phone] via [employer]. Galina will view and respond to your [employer] questions sent to Dr. Vu. Wound Care: [...] you upon discharge. Please call Galina at [phone] if unable to keep appointment. Nov 09, 2023 11:[address] Rl Medina Post-hospitalization appointment Nov 12, 2023 9:20 AM New with Hayder Vu MD [facility] Orthopaedic Surgery ([facility]) [address] [facility] Advanced Medicine 6th Floor [address] [facility] [address] Dec 03, 2023 1:20 PM Return with Hayder Vu MD [facility] Orthopaedic Surgery ( ORTHOPEDIC SURGERY) [address] [facility] [address] [facility] [id number] Dec 13, 2023 1:20 PM Return with Pan Irene MD [facility] Urology ( SURGERY) [address] [facility] [address] [facility] [phone] CALL [facility] NEUROLOGY FOR FOLLOW UP APPT WITH THE [facility] EPILEPSY DEPARTMENT [phone] Emergencies: SIGNS OF AN EMERGENT SITUATION INCLUDE-If [...] it is best that you return to [facility] for your emergent care. Please call the emergency exchange at [phone] or toll free any time of the day or night on the daysthe office is closed, so that the emergent care can be initiated for you. Please follow these instructions for emergency calls: -During business hours (Sunday through Sunday 8am-4:30 PM except for holidays), call [phone]. The air press operator will connect you with Dr. Vu???s nurse. Dr. Vu???s nurse reports all emergencies to Dr. Vu. -After business hours (after 4:30 PM and before 8:00am) you may call the Emergency Orthopaedic Exchange at [phone] or TOLL [phone]. The air press operator recreational therapy technician will contact Dr. Echeverria???s staff. IMPORTANT: Refills of medications need to be done during business hours-NO pain medication refills will be given over the phone after hours. Please call with any questions or concerns. We will be glad to assist you in any way during your recovery period. Dr. Vu???s Staff Galina Franco, RN: [phone] RIAL SCHEDULER RIAL SCHEDULER RIAL SCHEDULER RIAL SCHEDULER RIAL SCHEDULER RIAL SCHEDULER documented in this encounter Medications at Time [...] 1 tablet (10 mg total) by mouth authorization representative before breakfast 4 cholecalciferol (VITAMIN D-3) 5,000 unit capsuleIndication s:Vitamin D Deficiency Take 1 capsule (5,000 Units total) by mouth every morning 4 coenzyme Q10 100 mg capsule Take 1 capsule (100 mg total) by mouth authorization representative before breakfast 4 cyclobenzaprine (FLEXERIL) 5 mg [...] capsuleIndication s:Supplement Take 1 tablet by mouth authorization representative before breakfast 4 gabapentin (NEURONTIN) 300 mg [...] Patient choice (Home Health/Hospice) list given to patient/sales representative metals? Not Applicable Nursing Home Facility list given to patient/sales representative metals? Not Applicable IM letter completed with patient [...] Patient choice (Home Health/Hospice) list given to patient/sales representative metals? Yes Nursing Home Facility list given to patient/sales representative metals? Not Applicable Fiduciary Responsibility Patient/Designated decision maker was informed of [facility] fiduciary relationship as necessary Doubler Operator noted patient has been recommended for home heatlh by PT/OT. Doubler Operator met with thepatient at bedside to discuss recommendations by therapy and to work on a potential discharge disposition plan. Doubler Operator provided education to patient on therapy recommendations and home health services. Patient reported being interested in home health. manager mac provided a home health list to patient. Patient selected the following choices (preference order): Residential ([facility]) Home Health [facility] Home Health manager mac sent out referrals via [employer]. CM awaiting acceptance from a home health agency and [facility] to work on discharge planning with patient and family. Patient states he has own wheeled walker. CLAIRE Villagomze, RN RIAL SCHEDULER Nathalie Jacob PT - 10/30/2023 7:32 AM [...] treatment team and contact the PT or FURNITURE PAINTER currently assigned to this patient. If a physical therapy clinician is not assigned to this patient, please call [phone]. 10/30/23 7004 PT Last Visit Session Type Treatment (and [...] SPV via logroll - ADEQUATE FOR DISCHARGE RIAL SCHEDULER * Nasir Manzanares MD - 10/30/2023 6:38 [...] BP pends, Dispo pending home with setup [facility] today Objective Vitals: 24hr Min/Max: [...] For susceptibility results, refer to accession number [id number] on the urine culture from 10/11/23 MICROBIOLOGY [...] M.D. Department of Orthopaedic Surgery, PGY-3 [facility] Please use Need to page/call the appropriate Orthopaedic Surgery Team/Resident if questions or concerns Please call with questions during daytime. See below for overnight issues. If you know the resident's name on the appropriate orthopaedic surgery team, please use Need to page resident directly. If questions arise and the appropriate resident can't be reached or you are calling overnight, please contact [phone] ([facility] 7:30 PM - 6:30 AM - Floor Resident) or [phone] (24 hours/day - Consult Resident) Cosigned by Hayder Vu MD at 11/06/2023 6:43 PM MATERIAL SCHEDULER RIAL SCHEDULER RIAL SCHEDULER * Nasir Manzanares MD - 10/29/2023 1:32 PM CST Brief Ortho Progress Note: I did not personally visualize the drain tip after it was inadvertantly removed last night. However, per report from maintenance technician 3rd shift, the drain tip looked good and entire drain was removed. Nasir Manzanares MD Orthopaedic Surgery PGY2 RIAL SCHEDULER RIAL SCHEDULER * Artie Real MD PhD - 10/29/2023 [...] water 2,000 mg 2,000 mg intravenous Q8H [facility] enoxaparin (LOVENOX) syringe 80 mg 1 mg/kg subcutaneous Q12H [facility] gabapentin (NEURONTIN) capsule 300 mg 300 mg oral Q8H [facility] levETIRAcetam (KEPPRA) tablet 1,000 mg 1,000 mg [...] non-contrast head CT. Responsible Team Darrian Bone ([phone]) Artie Real ([phone]) Hira Segura (Chief) For any questions or concerns, please contact the nurse practitioner signed in to the chart. If youare unable to reach them, you may contact the residents as listed. If it is after 6pm or you are unable to reach the EQUIPMENT STERILIZER or resident team, please page the Neurosurgery Call Pager at [phone]. Note created by Artie Real MD PhD on 10/29/2023 at 7:20 AM. Cosigned by Gen Murray MD at 10/29/2023 4:52 PM MATERIAL SCHEDULER RIAL SCHEDULER RIAL SCHEDULER * Nasir Manzanares MD - 10/29/2023 7:18 [...] For susceptibility results, refer to accession number [id number] on the urine culture from 10/11/23 MICROBIOLOGY [...] M.D. Department of Orthopaedic Surgery, PGY-3 [facility] Please use Need to page/call the appropriate Orthopaedic Surgery Team/Resident if questions or concerns Please call with questions during daytime. See below for overnight issues. If you know the resident's name on the appropriate orthopaedic surgery team, please use Need to page resident directly. If questions arise and the appropriate resident can't be reached or you are calling overnight, please contact [phone] (Sun- 7:30 PM - 6:30 AM - Floor Resident) or [phone] (24 hours/day - Consult Resident) Cosigned by Hayder Vu MD at 11/06/2023 6:43 PM MATERIAL SCHEDULER RIAL SCHEDULER RIAL SCHEDULER * Shane Bowen, OT - 10/28/2023 11:09 [...] not assigned to this patient, please call [phone]. 10/28/23 6335 General Session Type Treatment OT Received On [...] OT OT - OK to Discharge No RIAL SCHEDULER * Carey Hein, PT - 10/28/2023 10:00 [...] treatment team and contact the PT or FURNITURE PAINTER currently assigned to this patient. If a physical therapy clinician is not assigned to this patient, please call [phone]. 10/28/23 1000 PT Last Visit Session Type [...] with all mobility to allow return to [facility] Problem: Mobility Start Date: 10/28/23 Goal Start [...] 11/04/23 -- Goal Details: SPV with [facility] RIAL SCHEDULER * Nasir Manzanares MD - 10/28/2023 8:32 [...] For susceptibility results, refer to accession number [id number] on the urine culture from 10/11/23 MICROBIOLOGY [...] Manzanares M.D. Department of Orthopaedic Surgery, PGY-3 [facility] [place] Please use [email or web address] to page/call the appropriate Orthopaedic Surgery Team/Resident if questions or concerns Please call with questions during daytime. See below for overnight issues. If you know the resident's name on the appropriate orthopaedic surgery team, please use Need to page resident directly. If questions arise and the appropriate resident can't be reached or you are calling overnight, please contact [phone] ([facility]- 7:30 PM - 6:30 AM - Floor Resident) or [phone] (24 hours/day - Consult Resident) Cosigned by Hayder Vu MD at 11/06/2023 6:43 PM MATERIAL SCHEDULER RIAL SCHEDULER RIAL SCHEDULER * Shane Bowen, OT - 10/27/2023 10:26 [...] not assigned to this patient, please call [phone]. 10/27/23 1026 General Session Type Treatment OT [...] task) LE Dressing: Equipment Utilized Sock aid;Dressing stick;Homebirth Midwife Toileting Toileting: Where assessed Toilet Toileting: Level [...] -- Reviewed By Ana Hampton RN 10/26/23 6947 Nathen Maharaj RN 10/24/23 1801 RIAL SCHEDULER * Nasir Manzanares MD - 10/27/2023 8:02 [...] For susceptibility results, refer to accession number [id number] on the urine culture from 10/11/23 MICROBIOLOGY [...] M.D. Department of Orthopaedic Surgery, PGY-3 [facility] Please use Need to page/call the appropriate Orthopaedic Surgery Team/Resident if questions or concerns Please call with questions during daytime. See below for overnight issues. If you know the resident's name on the appropriate orthopaedic surgery team, please use Need to page resident directly. If questions arise and the appropriate resident can't be reached or you are calling overnight, please contact [phone] ([facility] 7:30 PM - 6:30 AM - Floor Resident) or [phone] (24 hours/day - Consult Resident) Cosigned by Hayder Vu MD at 11/06/2023 6:43 PM MATERIAL SCHEDULER RIAL SCHEDULER RIAL SCHEDULER * Ana Hampton RN - 10/26/2023 5:44 PM CST Pt transferred to room [address] [place] [address] Face to face report given to annetta MACKEY. belongings transferred with pt. Heparin gtt to be d/c. Labs obtained prior to transfer. RIAL SCHEDULER * Luana Singh RD - 10/26/2023 3:07 [...] Adult Diet Regular Diet effective now Question: ([facility]) Diet type Answer: Regular 10/25/23 0532 10/24/23 2100 Bedtime snack At bedtime Comments: If bedtime BG is less than 100mg/dl, give patient a 15 gram carbohydrate snack. 10/24/23 0353 Assessment / Impression: [place] [address] [place]. Spoke to pt and at bedside. Reports pt was eating well FURNITURE PAINTER, appetite reduced following his surgery but has [...] RD following. Joleen Singh, MS, RD, LD [facility] [phone] On-call/weekend: [phone] RIAL SCHEDULER * Aston Tran PTA - 10/26/2023 2:05 PM CST 10/26/23 1405 PT Last Visit PT Missed Visit Reason Family declined;Other (comment) (Pt's has politely declined PT at this time citing increased pain and fatigue following prior OT session. Pt's requests that PT staff follow-up in AM.) Recommendation/Plan PT - Next Appointment 10/27/23 RIAL SCHEDULER * Shane Bowen, MORAIMA - 10/26/2023 9:53 [...] not assigned to this patient, please call [phone]. 10/26/23 9011 General Session Type Treatment OT Received On [...] for task) LE Dressing: Equipment Utilized Sock aid;Homebirth Midwife;Dressing stick Toileting Toileting: Where assessed Chair Toileting: [...] -- Reviewed By Nathen Maharaj RN 10/24/231800 RIAL SCHEDULER * Nasir Manzanares MD - 10/26/2023 7:08 [...] For susceptibility results, refer to accession number [id number] on the urine culture from 10/11/23 MICROBIOLOGY [...] Manzanares M.D. Department of Orthopaedic Surgery, PGY-3 [facility] Please use Need to page/call the appropriate Orthopaedic Surgery Team/Resident if questions or concerns Please call with questions during daytime. See below for overnight issues. If you know the resident's name on the appropriate orthopaedic surgery team, please use Need to page resident directly. If questions arise and the appropriate resident can't be reached or you are calling overnight, please contact [phone] ([facility]- 7:30 PM - 6:30 AM - Floor Resident) or [phone] (24 hours/day - Consult Resident) Cosigned by Hayder Vu MD at 10/26/2023 1:04 PM MATERIAL SCHEDULER RIAL SCHEDULER RIAL SCHEDULER RIAL SCHEDULER Associated attestation - Hayder Vu Jr., MD - 10/26/2023 1:04 PM MATERIAL SCHEDULER Attending Attestation I have seen and examined [...] questions were answered. Hayder Vu Jr., MD [employer] Department of Orthopaedic Surgery Division of Spine Surgery [place], [place] Certified Control Systems Technician done by [employer]; therefore, variances and [...] downtrend recheck at 0600 HPI: 73yo male [id number] for complicated E. Coli UTI prior undergoing [...] been reviewed with attending, Dr. Adis Nolan, [facility] Critical Care Performed by: Tia Nolan NP [...] plan with the patient's team and other medical/business management consultant staff. 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 Otherwise no c/f falls prior Prior Function Comments: Patient reports symptoms began in 07/2023; however, FURNITURE PAINTER was IND with all I/ADLs and was [...] name and address after me: Hayder Reddy [address] [place] [address] Without looking at the clock, tell me [...] -- Reviewed By Nathen Maharaj RN 10/24/23 2801 For questions, please review the treatment team and contact the occupational therapist currently assigned to this patient. If an occupational therapist is not assigned to this patient, please call [phone]. RIAL SCHEDULER * Alisa Nath, PT - 10/25/2023 8:30 [...] treatment team and contact the PT or FURNITURE PAINTER currently assigned to this patient. If a physical therapy clinician is not assigned to this patient, please call [phone]. 10/25/23 0830 PT Last Visit Session Type [...] with all mobility to allow return to [facility] Problem: Transfers Start Date: 10/25/23 Goal Start Date Expected End Date End Date STG - Patient to transfer to and from sit to supine 10/25/23 10/31/23 -- Goal Details: Min A with use of log roll Reviewed By Nathen Maharaj RN 10/24/231800 RIAL SCHEDULER * Nasir Manzanares MD - 10/25/2023 7:53 [...] For susceptibility results, refer to accession number [id number] on the urine culture from 10/11/23 MICROBIOLOGY [...] M.D. Department of Orthopaedic Surgery, PGY-3 [facility] Please use Need to page/call the appropriate Orthopaedic Surgery Team/Resident if questions or concerns Please call with questions during daytime. See below for overnight issues. If you know the resident's name on the appropriate orthopaedic surgery team, please use Need to page resident directly. If questions arise and the appropriate resident can't be reached or you are calling overnight, please contact [phone] ([facility]- 7:30 PM - 6:30 AM - Floor Resident) or [phone] (24 hours/day - Consult Resident) Cosigned by Hayder Vu MD at 10/26/2023 12:58 PM MATERIAL SCHEDULER RIAL SCHEDULER RIAL SCHEDULER * Luana Brady NP - 10/25/2023 7:04 [...] Avel Bourne MD at 10/26/2023 5:50 PM MATERIAL SCHEDULER RIAL SCHEDULER RIAL SCHEDULER * Hayden Barton MD - 10/24/2023 6:26 [...] EKG/Min 82 BPM Atrial Rate 82 BPM CA-Interval (MSEC) 166 ms QRS-Interval (MSEC) 78 ms QT-Interval (MSEC) 384 ms QTc 448 ms P [place] 34 degrees R [place] -30 degrees T [place] -13 degrees Diagnosis Normal sinus rhythm Left [...] Arceo Jr., MD at 10/25/2023 3:43 AM MATERIAL SCHEDULER RIAL SCHEDULER RIAL SCHEDULER * Javad Sow PT - 10/24/2023 12:03 PM CST Physical Therapy 10/24/23 1203 General PT Missed Visit Reason Family declined (request to allow patient to sleep) RIAL SCHEDULER * Dari Dickens [facility] - 10/24/2023 10:51 AM CST Patient profile has been reviewed by clinical hospital pharmacy technician on 10/24/2023. Case reviewed on rounds with [...] (premix) 2,000 mg, 2,000 mg, intravenous, Q8H [facility], Yesica Smith NP, 2,000 mg at 10/24/23 [...] at 10/24/23 0936 [Held by Provider] multivit mvukfjfq-zhvv-XO-calcium (THERA-M) tablet 1 tablet, 1 tablet, oral, [...] flush 0.5-20 mL, 0.5-20 mL, intra-catheter, Q8H [facility], Oneyda Foley NP, 10 mL at 10/24/23 [...] Q12H, Oneyda Foley, DONTAE Dickens [facility], PharmD, BCPS, BCCCP RIAL SCHEDULER * Rob Langley, DONTAE - 10/24/2023 6:48 [...] EKG/Min 82 BPM Atrial Rate 82 BPM CA-Interval (MSEC) 166 ms QRS-Interval (MSEC) 78 ms QT-Interval (MSEC) 384 ms QTc 448 ms P [place] 34 degrees R [place] -30 degrees T [place] -13 degrees Diagnosis Normal sinus rhythm Left [...] plan with the ICU team and other medical/business management consultant staff, making frequent assessments and decisions [...] Avel Bourne MD at 10/24/2023 6:17 PM MATERIAL SCHEDULER RIAL SCHEDULER RIAL SCHEDULER RIAL SCHEDULER * Ata Marquez MD - 10/24/2023 5:56 [...] Edited by: Oneyda Foley NP at 10/23/2023 0750 Objective Vitals: 24hr Min/Max: Temp Min: 36.5 [...] 5/5 5/5 Wrist flexion (C7) 4/5 5/5 Infection Control Specialist (C8) 4/5 5/5 Interosseous of hand (T1) [...] For susceptibility results, refer to accession number [id number] on the urine culture from 10/11/23 MICROBIOLOGY [...] Marquez M.D. Department of Orthopaedic Surgery, PGY-3 [facility] Please use Need to page/call the appropriate Orthopaedic Surgery Team/Resident if questions or concerns Please call with questions during daytime. See below for overnight issues. If you know the resident's name on the appropriate orthopaedic surgery team, please use Need to page resident directly. If questions arise and the appropriate resident can't be reached or you are calling overnight, please contact [phone] ([facility] 7:30 PM - 6:30 AM - Floor Resident) or [phone] (24 hours/day - Consult Resident) Cosigned by Hayder Vu MD at 10/24/2023 1:48 PM MATERIAL SCHEDULER RIAL SCHEDULER RIAL SCHEDULER Associated attestation - Hayder Vu Jr., MD - 10/24/2023 1:48 PM MATERIAL SCHEDULER Attending Attestation I have seen and examined [...] questions or concerns. Hayder Vu Jr., MD Press Bucker Department of Orthopaedic Surgery Division of Spine Surgery [facility] [place], [place] Certified Control Systems Technician done by [employer]; therefore, variances and [...] of spine with ortho. Pipe Moseley MD RIAL SCHEDULER * Luciana Dickerson, PT - 10/23/2023 8:28 AM CST Physical Therapy 10/23/23 0828 General PT Missed Visit Reason Other (comment) (Per medical chart, pending OR today with ortho spine. Will follow up once post-op) RIAL SCHEDULER * Nasir Manzanares MD - 10/23/2023 6:14 [...] For susceptibility results, refer to accession number [id number] on the urine culture from 10/11/23 MICROBIOLOGY [...] the appropriate orthopaedic surgery team, please use [email or web address] to page resident directly. If questions arise and the appropriate resident can't be reached or you are calling overnight, please contact [phone] ([place]- 7:30 PM - 6:30 AM - Floor Resident) or [phone] (24 hours/day - Consult Resident) Cosigned by Hayder Vu MD at 10/23/2023 4:10 PM MATERIAL SCHEDULER RIAL SCHEDULER RIAL SCHEDULER Associated attestation - Hayder Vu Jr., MD - 10/23/2023 4:10 PM MATERIAL SCHEDULER Attending Attestation I have seen and examined [...] tibialis anterior, EHL. Hayder Vu Jr., MD Press [employer] Department of Orthopaedic Surgery Division of Spine Surgery [facility] [place], [place] Certified Control Systems Technician done by [employer]; therefore, variances and inaccuracies may occur. * Jimenez Henao MD - 10/22/2023 3:29 PM CST Daily Progress Note Division of Hospital Medicine Name: Hira Evans : 1950 Today's Date: October 22, 2023 Age: 73 y.o. male Admission: 10/12/2023 Bed: [id number] LOS: 9 days Subjective Chief complaint: back [...] 33 minutes which was spent performing a xhaj-qa-twqf encounter and personally completing the provider-level activities documented in the note. This includes time spent prior to the visit and after the visit in direct care of the patient. This time does not include time spent in any separately reportable services. Jimenez Henao MD RIAL SCHEDULER * Zehra Cook MD - 10/22/2023 6:43 [...] upcoming Tuesday 10/23. Please make NPO at [facility], hold DVT prophylaxis. Edited by: Zehra Cook [...] For susceptibility results, refer to accession number [id number] on the urine culture from 10/11/23 MICROBIOLOGY [...] Ambulate with assist DVT ppx: Hold at [facility] for OR tomorrow Therapy: PT/OT for OOB/mobilization [...] the appropriate orthopaedic surgery team, please use [email or web address] to page resident directly. If questions arise and the appropriate resident can't be reached or you are calling overnight, please contact [phone] ([place]- 7:30 PM - 6:30 AM - Floor Resident) or [phone] (24 hours/day - Consult Resident) Cosigned by Hayder Vu MD at 10/23/2023 7:36 AM MATERIAL SCHEDULER RIAL SCHEDULER RIAL SCHEDULER * Jimenez Henao MD - 10/21/2023 10:51 AM CST Daily Progress Note Division of Hospital Medicine Name: Hira Evans : 1950 Today's Date: October 21, 2023 Age: 73 y.o. male Admission: 10/12/2023 Bed: [id number] LOS: 8 days Subjective Chief complaint: back [...] 28 minutes which was spent performing a fimh-sq-xsid encounter and personally completing the provider-level activities documented in the note. This includes time spent prior to the visit and after the visit in direct care of the patient. This time does not include time spent in any separately reportable services. Jimenez Henao MD RIAL SCHEDULER * Jimenez Henao MD - 10/20/2023 2:55 PM CST Daily Progress Note Division of Hospital Medicine Name: Hira Evans : 1950 Today's Date: October 20, 2023 Age: 73 y.o. male Admission: 10/12/2023 Bed: [id number] LOS: 7 days Subjective Chief complaint: back [...] 28 minutes which was spent performing a giog-ro-iacq encounter and personally completing the provider-level activities documented in the note. This includes time spent prior to the visit and after the visit in direct care of the patient. This time does not include time spent in any separately reportable services. Jimenez Henao MD RIAL SCHEDULER * Belen Hennessy PA - 10/19/2023 1:59 [...] Belen Hennessy PA-C Interventional Radiology Available via [employer] M-F 7 AM until 3 PM IR call pager M-F after 3 PM or on weekends If the patient does not already have a follow-up appointment arranged, please place order and then please call the [employer] hotel front desk agent at between 7:30 AM and 4:00 PM. RIAL SCHEDULER * Jimenez Henao MD - 10/19/2023 12:50 PM CST Daily Progress Note Division of Hospital Medicine Name: Hira Evans : 1950 Today's Date: October 19, 2023 Age: 73 y.o. male Admission: 10/12/2023 Bed: [id number] LOS: 6 days Subjective Chief complaint: back [...] 50 minutes which was spent performing a rvfu-ig-crui encounter and personally completing the provider-level activities documented in the note. This includes time spent prior to the visit and after the visit in direct care of the patient. This time does not include time spent in any separately reportable services. Jimenez Henao MD RIAL SCHEDULER * Jimenez Henao MD - 10/18/2023 5:15 PM CST Daily Progress Note Division of Hospital Medicine Name: Hira Evans : 1950 Today's Date: October 18, 2023 Age: 73 y.o. male Admission: 10/12/2023 Bed: [id number] LOS: 5 days Subjective Chief complaint: back [...] algorithm), available at [email or web address]). Dictated by: Gypsy Pelleiter M.D. The radiology attending physician has personally [...] 55 minutes which was spent performing a jzby-ua-dlye encounter and personally completing the provider-level activities documented in the note. This includes time spent prior to the visit and after the visit in direct care of the patient. This time does not include time spent in any separately reportable services. Jimenez Henao MD RIAL SCHEDULER * Osorio Calle MD - 10/18/2023 6:54 [...] For susceptibility results, refer to accession number [id number] on the urine culture from 10/11/23 MICROBIOLOGY [...] the appropriate orthopaedic surgery team, please use [email or web address] to page resident directly. If questions arise and the appropriate resident can't be reached or you are calling overnight, please contact [phone] ([facility] 7:30 PM - 6:30 AM - Floor Resident) or [phone] (24 hours/day - Consult Resident) Cosigned by Hayder Vu MD at 10/18/2023 12:31 PM MATERIAL SCHEDULER RIAL SCHEDULER RIAL SCHEDULER * Michelle Harris PA - 10/17/2023 3:10 [...] follow. BONITA Damon-Maddie Interventional Radiology Available via TrustTeam Chat M-F 7 AM until 3 PM. IR call pager M-F after 3 PM or on weekends. If the patient does not already have a follow-up appointment arranged, please place order and then please call the [employer] hotel front desk agent at between 7:30 AM and 4:00 PM. RIAL SCHEDULER * Jimenez Henao MD - 10/17/2023 2:46 PM CST Daily Progress Note Division of Hospital Medicine Name: Hira Evans : 1950 Today's Date: October 17, 2023 Age: 73 y.o. male Admission: 10/12/2023 Bed: [id number] LOS: 4 days Subjective Chief complaint: back [...] 60 minutes which was spent performing a uhar-cf-sjsi encounter and personally completing the provider-level activities documented in the note. This includes time spent prior to the visit and after the visit in direct care of the patient. This time does not include time spent in any separately reportable services. Jimenez Henao MD RIAL SCHEDULER * Luciana Dickerson, PT - 10/17/2023 2:21 [...] POC Prior Function Prior Function Level of [place]: Independent functional transfers, Independent with ambulation Lives With: Spouse Receives Help From: Spouse/Significant other (part time flexible clerk assist as needed) Fall within the last [...] all mobility to allow return to PLOF RIAL SCHEDULER * Hayden Youngblood MD - 10/17/2023 8:30 [...] For susceptibility results, refer to accession number [id number] on the urine culture from 10/11/23 MICROBIOLOGY [...] the appropriate orthopaedic surgery team, please use [email or web address] to page resident directly. If questions arise and the appropriate resident can't be reached or you are calling overnight, please contact [phone] ([facility] 7:30 PM - 6:30 AM - Floor Resident) or [phone] (24 hours/day - Consult Resident) Cosigned by Hayder Vu MD at 10/17/2023 8:47 AM MATERIAL SCHEDULER RIAL SCHEDULER RIAL SCHEDULER * Hayder Vu MD - 10/17/2023 7:19 [...] questions or concerns. Hayder Vu Jr., MD Press [employer] Department of Orthopaedic Surgery Division of Spine Surgery [facility] [place], [place] RIAL SCHEDULER RIAL SCHEDULER * Jimenez Henao MD - 10/16/2023 12:31 PM CST Daily Progress Note Division of Hospital Medicine Name: Hira Evans : 1950 Today's Date: October 16, 2023 Age: 73 y.o. male Admission: 10/12/2023 Bed: [id number] LOS: 3 days Subjective Chief complaint: back [...] 80 minutes which was spent performing a esvf-oq-wrdb encounter and personally completing the provider-level activities documented in the note. This includes time spent prior to the visit and after the visit in direct care of the patient. This time does not include time spent in any separately reportable services. Jimenez Henao MD RIAL SCHEDULER * Collin Barnes MD - 10/16/2023 8:24 [...] 8 hours. -Continue to monitor drainage output. RIAL SCHEDULER * Hayden Youngblood MD - 10/16/2023 6:46 [...] For susceptibility results, refer to accession number [id number] on the urine culture from 10/11/23 MICROBIOLOGY [...] the appropriate orthopaedic surgery team, please use [email or web address] to page resident directly. If questions arise and the appropriate resident can't be reached or you are calling overnight, please contact [phone] ([place]- 7:30 PM - 6:30 AM - Floor Resident) or [phone] (24 hours/day - Consult Resident) Cosigned by Haydre Vu MD at 10/16/2023 7:19 AM MATERIAL SCHEDULER RIAL SCHEDULER RIAL SCHEDULER * Marquise Lim MD - 10/15/2023 8:52 AM CST Daily Progress Note Division of Hospital Medicine Name: Hira Evans : 1950 Today's Date: October 15, 2023 Age: 73 y.o. male Admission: 10/12/2023 Bed: [id number] LOS: 2 days Subjective Chief complaint: back [...] loading dose of gentamicin on 10/13 -Continue hraris catheter for decompression -zofran for nausea -continue [...] 80 minutes which was spent performing a yshw-rk-mvsp encounter and personally completing the provider-level activities documented in the note. This includes time spent prior to the visit and after the visit in direct care of the patient. This time does not include time spent in any separately reportable services. Marquise Lim MD RIAL SCHEDULER * Ana Alfaro MD - 10/15/2023 7:20 [...] For susceptibility results, refer to accession number [id number] on the urine culture from 10/11/23 Exam: Left PCN site c/d/i. Assessment and Plan: 73-year old man with partially obstructing left ureteral stone post left PCN placement in 10/14/2023. Continue to flush 10 mL normal saline every 8 hours. Continue to monitor drainage output. RIAL SCHEDULER * Hayden Youngblood MD - 10/15/2023 7:07 [...] 5/5 in BUE deltoid, biceps, triceps, WE/WF, activities attendant Sensation Left lower extremity: SILT L2 to [...] For susceptibility results, refer to accession number [id number] on the urine culture from 10/11/23 MICROBIOLOGY [...] the appropriate orthopaedic surgery team, please use [email or web address] to page resident directly. If questions arise and the appropriate resident can't be reached or you are calling overnight, please contact [phone] ([place]- 7:30 PM - 6:30 AM - Floor Resident) or [phone] (24 hours/day - Consult Resident) Cosigned by Hayder Vu MD at 10/15/2023 8:54 AM MATERIAL SCHEDULER RIAL SCHEDULER RIAL SCHEDULER Associated attestation - Hayder Vu Jr., MD - 10/15/2023 8:54 AM MATERIAL SCHEDULER Attending Attestation I have seen and examined [...] of Mr. Evans. Hayder Vu Jr., MD Press [employer] Department of Orthopaedic Surgery Division of Spine Surgery [facility] [place], [place] Certified Control Systems Technician done by [employer]; therefore, variances and [...] For susceptibility results, refer to accession number [id number] on the urine culture from 10/11/23 MICROBIOLOGY [...] the appropriate orthopaedic surgery team, please use [email or web address] to page resident directly. If questions arise and the appropriate resident can't be reached or you are calling overnight, please contact [phone] ([facility] 7:30 PM - 6:30 AM - Floor Resident) or [phone] (24 hours/day - Consult Resident) Cosigned by Hayder Vu MD at 10/15/2023 9:21 AM MATERIAL SCHEDULER RIAL SCHEDULER RIAL SCHEDULER RIAL SCHEDULER Associated attestation - Hayder Vu Jr., MD - 10/15/2023 9:21 AM MATERIAL SCHEDULER I agree with the resident's note with [...] Age: 73 y.o. male Admission: 10/12/2023 Bed: [id number] LOS: 1 days Subjective Chief complaint: fever+chills [...] 70 minutes which was spent performing a qpvf-kb-eset encounter and personally completing the provider-level activities documented in the note. This includes time spent prior to the visit and after the visit in direct care of the patient. This time does not include time spent in any separately reportable services. Marquise Lim MD RIAL SCHEDULER * Marquise Lim MD - 10/13/2023 7:43 AM CST Daily Progress Note Division of Hospital Medicine Name: Hira Evans : 1950 Today's Date: October 13, 2023 Age: 73 y.o. male Admission: 10/12/2023 Bed: [id number] LOS: 0 days Subjective Chief complaint: Sepsis [...] : / Supplementary Attestation Marquise Lim MD RIAL SCHEDULER documented in this encounter H&P Notes * [...] 1 tablet (10 mg total) by mouth authorization representative before breakfast cholecalciferol (VITAMIN D-3) 5,000 unit capsule Take 1 capsule (5,000 Units total) by mouth every morning coenzyme Q10 100 mg capsule Take 1 capsule (100 mg total) by mouth authorization representative before breakfast DILT-XR 240 mg 24 hr capsule Take 1 capsule (240 mg total) by mouth 2 (two) times a day 0 fish,bora,flax oils-om3,6,9no1 400-400-400 mg capsule Take 1 tablet by mouth authorization representative before breakfast irbesartan (AVAPRO) 300 mg tablet [...] EEG - Neurology consulted, appreciate recs: Magui eMmbreno epilepsy protocol CV: #In-hospital cardiac arrest - [...] - Postop ppx as above TDLA: PIV [place] Harris Restraints: soft limb DVT prophylaxis: n/a; therapeutic heparin gtt for PEs Chichi Reyes MD 10/23/23 10:16 PM Cosigned by Wilder Arceo Jr., MD at 10/24/2023 5:52 AM MATERIAL SCHEDULER RIAL SCHEDULER RIAL SCHEDULER Associated attestation - Wilder Arceo Jr., MD - 10/24/2023 5:52 AM MATERIAL SCHEDULER Critical Care Time: I have spent 75 [...] plan with the ICU team and other medical/business management consultant staff. Wilder Arceo Jr., MD * [...] for OR today from a medical standpoint. RIAL SCHEDULER RIAL SCHEDULER Source Note - Severo Merlos MD - 10/13/2023 5:00 AM MATERIAL SCHEDULER History and Physical Division of [facility] Medicine Name: Hira Evans : 1950 Today's Date: October 13, 2023 Age: 73 y.o. male Admit Date: 10/12/2023 Bed: [id number] LOS: 0 days Subjective Hira Evans is [...] 1 tablet (10 mg total) by mouth authorization representative before breakfast cholecalciferol (VITAMIN D-3) 5,000 unit capsule Take 1 capsule (5,000 Units total) by mouth every morning coenzyme Q10 100 mg capsule Take 1 capsule (100 mg total) by mouth authorization representative before breakfast DILT-XR 240 mg 24 hr capsule Take 1 capsule (240 mg total) by mouth 2 (two) times a day fish,bora,flax oils-om3,6,9no1 400-400-400 mg capsule Take 1 tablet by mouth authorization representative before breakfast irbesartan (AVAPRO) 300 mg tablet [...] 60 minutes which was spent performing a jumo-rv-jdam encounter and personally completing the provider-level activities documented in the note. This includes time spent prior to the visit and after the visit in direct care of the patient. This time does not include time spent in any separately reportable services. Severo Merlos MD RIAL SCHEDULER * Gabriel Bennett MD - 10/18/2023 9:06 AM CST I have reviewed the H&P, examined the patient, and endorse the findings as written. Plan of Care : Based on the above findings, I consider Hira Evans to be an acceptable risk for : Procedure(s): CYSTOSCOPY PYELOGRAM - RETROGRADE LITHOTRIPSY - LASER URETEROSCOPY RIAL SCHEDULER Source Note - Fredrick Mcneil MD - 10/12/2023 10:45 PM MATERIAL SCHEDULER Images from the original note were not [...] to concerning symptoms, he was transferred to [facility] ED for further workup. Patient's reports [...] or concerns, please page Urology through the air press operator. Vero Tolentino MD 10/12/2023 RIAL SCHEDULER RIAL SCHEDULER RIAL SCHEDULER * Severo Merlos MD - 10/13/2023 5:00 AM CST History and Physical Division of Hospital Medicine Name: Hira Evans : 1950 Today's Date: October 13, 2023 Age: 73 y.o. male Admit Date: 10/12/2023 Bed: [id number] LOS: 0 days Subjective Hira Evans is [...] 1 tablet (10 mg total) by mouth authorization representative before breakfast cholecalciferol (VITAMIN D-3) 5,000 unit capsule Take 1 capsule (5,000 Units total) by mouth every morning coenzyme Q10 100 mg capsule Take 1 capsule (100 mg total) by mouth authorization representative before breakfast DILT-XR 240 mg 24 hr capsule Take 1 capsule (240 mg total) by mouth 2 (two) times a day fish,bora,flax oils-om3,6,9no1 400-400-400 mg capsule Take 1 tablet by mouth authorization representative before breakfast irbesartan (AVAPRO) 300 mg tablet [...] 60 minutes which was spent performing a umdu-fk-wyth encounter and personally completing the provider-level activities documented in the note. This includes time spent prior to the visit and after the visit in direct care of the patient. This time does not include time spent in any separately reportable services. Severo Merlos MD RIAL SCHEDULER documented in this encounter Procedure Notes * Luana Brady EQUIPMENT STERILIZER - 10/25/2023 6:45 PM CSTAssociated Order(s): Critical [...] plan with the patient's team and other medical/business management consultant staff. This time was in addition to and separate from care provided by other practitioners on this day of service. RIAL SCHEDULER * Wilder Arceo Jr., MD - 10/24/2023 [...] plan with the ICU team and other medical/business management consultant staff, making frequent assessments and decisions [...] hemorrhage, Acute pain/acute postoperative pain and Seizure Lzv-FQ-Dfdzgxizc mycardial infarction (Non-STEMI) and Cardiac arrest Hypo- [...] spent time documenting in the medical record RIAL SCHEDULER * Wilder Arceo Jr., MD - 10/23/2023 [...] plan with the ICU team and other medical/business management consultant staff, making frequent assessments and decisions [...] spent time documenting in the medical record RIAL SCHEDULER documented in this encounter Consult Notes * Yumiko Rome MD - 10/28/2023 9:48 AM CSTAssociated Order(s): IP CONSULT TO NEUROSURGERY Neurosurgery Consultation Patient: Hira Evans CSN: [id number] : 1950 Admission date: 10/12/2023 Length of [...] open L4-5 posterior spinal fusion (TLIF from [facility], laminectomy autograft and allograft). Postprocedure, in the [...] His , Neelima, can be reached at [phone] Family history: Reviewed and noncontributory. Physical Examination: [...] discussed with the chief resident and attending recreational therapy technician. The patient was evaluated within 30 minutes of consultation Yumiko Rome MD Cosigned by Jeremy Mojica MD at 10/30/2023 3:48 PM MATERIAL SCHEDULER RIAL SCHEDULER RIAL SCHEDULER RIAL SCHEDULER Associated attestation - Jeremy Mojica MD - 10/30/2023 3:48 PM MATERIAL SCHEDULER I have seen and examined the patient [...] 73 y.o. male Admit Date: 10/12/2023 Bed: [id number] LOS: 13 days Subjective HPI 73 year [...] 1 tablet (10 mg total) by mouth authorization representative before breakfast cholecalciferol (VITAMIN D-3) 5,000 unit capsule Take 1 capsule (5,000 Units total) by mouth every morning coenzyme Q10 100 mg capsule Take 1 capsule (100 mg total) by mouth authorization representative before breakfast DILT-XR 240 mg 24 hr capsule Take 1 capsule (240 mg total) by mouth 2 (two) times a day fish,bora,flax oils-om3,6,9no1 400-400-400 mg capsule Take 1 tablet by mouth authorization representative before breakfast irbesartan (AVAPRO) 300 mg tablet [...] Medicine Consults will sign off. Please call [phone] for further questions. Viry Patterson MD Cosigned by Ryan London MD at 10/26/2023 5:20 PM MATERIAL SCHEDULER RIAL SCHEDULER RIAL SCHEDULER Associated attestation - Ryan London MD - 10/26/2023 5:20 PM MATERIAL SCHEDULER Attending Documentation I have seen and examined [...] mg/mL injection - ADS Override Pull multivit yclbnxcr-zjfh-KT-calcium (THERA-M) tablet 1 tablet 1 tablet oral [...] likely representing a ureteral stone. Dictated by: Tryone Londono M.D. The radiology attending physician has [...] unlikely the patient will require anti-seizure medication intermodal customer service, but it is reasonable to continue AEDs [...] will decide whether he needs this medication intermodal customer service depending on the workup. Thank you for this consult. Neurology Consult Call Back: [phone] (senior phone). Please do nothesitate to contact us with any questions or concerns, and specify that this consult was staffed with consult team A. Zaheer Bennett MD, PHD Neurology Resident, PGY-2 10/24/2023 1:15 AM Cosigned by Steve Funk MD PhD at 10/24/2023 10:51 PM MATERIAL SCHEDULER RIAL SCHEDULER RIAL SCHEDULER RIAL SCHEDULER RIAL SCHEDULER Associated attestation - Steve Funk MD PhD - 10/24/2023 10:51 PM MATERIAL SCHEDULER I have seen and examined the patient [...] to concerning symptoms, he was transferred to [facility] ED for further workup. Patient's reports [...] or concerns, please page Urology through the air press operator. Vero Tolentino MD 10/12/2023 RIAL SCHEDULER RIAL SCHEDULER RIAL SCHEDULER * Hayden Youngblood MD - 10/12/2023 7:22 [...] 1 tablet (10 mg total) by mouth authorization representative before breakfast Fidelia Perdue MD cholecalciferol (VITAMIN D-3) 5,000 unit capsule Take 1 capsule (5,000 Units total) by mouth every morning Fidelia Perdue MD coenzyme Q10 100 mg capsule Take 1 capsule (100 mg total) by mouth authorization representative before breakfast Fidelia Perdue MD DILT-XR 240 mg 24 hr capsule Take 1 capsule (240 mg total) by mouth 2 (two) times a day 05/12/19 Fidelia Perdue MD fish,bora,flax oils-om3,6,9no1 400-400-400 mg capsule Take 1 tablet by mouth authorization representative before breakfast Fidelia Perdue MD irbesartan (AVAPRO) [...] extension 5/5 5/5 Wrist flexion 5/5 5/5 Infection Control Specialist 5/5 5/5 Interosseous of hand 5/5 5/5 [...] Department of Orthopaedic Surgery, PGY-2 [facility] Please use Need to page/call the appropriate Orthopaedic Surgery Team/Resident if questions or concerns. Normal business hours: If you know the resident's name on the appropriate orthopaedic surgery team,please use the Directory Search at Need to page resident directly. If questions arise and the appropriate resident can't be reached or you are calling overnight, please contact [phone] ([place]- 7:30 PM - 6:30 AM - Floor Resident) or [phone] (24 hours/day - Consult Resident) Cosigned by Hayder Vu MD at 10/14/2023 10:41 PM MATERIAL SCHEDULER RIAL SCHEDULER RIAL SCHEDULER documented in this encounter Nursing Notes * Sherice Wilcox RN - 10/24/2023 1:21 AM CST Fredrick MACKEY [place] [id number] in anticipation of admission to our unit.Post op, patient went to ICU. AN brought bag of patient belongings to current room 4401. RIAL SCHEDULER * Nolvia Gonzales RN - 10/23/2023 10:20 [...] Anesthesia at bedside tobring patient to ICU. RIAL SCHEDULER * Fredrick Sheffield RN - 10/23/2023 7:04 PM CST Patient belongings (blanket, jacket, shoes, mirror, shirt, pajama pants) brought to unit 35428, where patient is transferring. Entire room searched for belongings, [place] [address]. RIAL SCHEDULER * Frieda Cai RN - 10/18/2023 6:14 PM CST Patient went to surgery today and got a stent place, the catheter was changed during surgery. No drainage or leakage around the harris cath noted. RIAL SCHEDULER * Ad Parikh RN - 10/16/2023 3:01 PM CST Assumed care for patient at 1500. This Rn agrees with previous RN's assessment. Patient A&ox4 and resting in bed. Will continue to monitor. RIAL SCHEDULER * Adia Poole RN - 10/15/2023 7:44 [...] needs, and inagreement with bedside shift report. RIAL SCHEDULER documented in this encounter ED Notes * Justice Vivas RN - 10/12/2023 6:25 PM CST Bed: ED1-14 Expected date: Expected time: Means of arrival: Car Comments: Justice Vivas RN 10/12/23 0449 RIAL SCHEDULER * Amol Hargrove MD - 10/12/2023 6:22 [...] E coli. Patient was sent to the [facility] ED at the instruction of Dr. [...] of Care ED Course as of 10/12/23 9472 Time: 10/12 1840 Comment: Attending physician assessment [...] Rafael Cowan MD at 10/14/2023 12:05 AM MATERIAL SCHEDULER RIAL SCHEDULER RIAL SCHEDULER Associated attestation - Rafael Cowan MD - 10/14/2023 12:05 AM MATERIAL SCHEDULER I have seen and examined the patient [...] spinal surgery on Sunday. Reports malodorous urine. RIAL SCHEDULER documented in this encounter Miscellaneous Notes * Provider Query - Hayder Vu MD - 10/30/2023 4:07 PM MATERIAL SCHEDULER Greetings Dr. Vu Please clarify if sepsis [...] the patient???s medical record. Sincerely, Boaz Harris [facility] Information Management RIAL SCHEDULER * Provider Query - Hayder Vu MD - 10/30/2023 4:07 PM MATERIAL SCHEDULER Greetings Dr. Vu, Both respiratory failure and [...] the patient???s medical record. Sincerely, Boaz Harris [facility] Information Management RIAL SCHEDULER * Plan of Care - Nathalie Herrera RN - 10/30/2023 2:38 PM CST [facility] unable to accept due to insurance. Referrals sent to remaining home health agencies that serve patient's zip code: [facility]---unable to accept due to staffing limitations [facility]---unable to accept due to staffing limitations [facility]---unable to accept due to insurance. [facility]--unable to accept due to staffing limitations [facility]--unable to accept due to insurance. At this time, all home health agency options have been exhausted. Unable to secure home health therapy. Called patient's spouse Cynda to update. No further case management needs identified at this time RIAL SCHEDULER RIAL SCHEDULER RIAL SCHEDULER RIAL SCHEDULER * Plan of Care - Matilda Gonzales [...] Declined PRN pain med for trip home. RIAL SCHEDULER * Plan of Care - Nathalie Herrera RN - 10/30/2023 1:21 PM CST [facility] ([facility] Health has accepted patient pending insurance [...] is unable to accept. Will contact patient's [facility] at [phone] if and when home health is secured. RIAL SCHEDULER * Plan of Care - Nathalie Herrera RN - 10/30/2023 9:29 AM CST [facility] unable to accept. RIAL SCHEDULER * Plan of Care - Suzanne Mendoza [...] health care needs will improve Outcome: Progressing RIAL SCHEDULER * Plan of Deny - Matilda Gonzales [...] up. EPC used for sacral chaffing. Several recreational therapy technician residents notified regarding drain which accidentally came out during care. RIAL SCHEDULER * Plan of Care - Suzanne Mendoza [...] Goal: Pain level will decrease Outcome: Progressing RIAL SCHEDULER * Plan of Care - Erick eMlchor RN - 10/28/2023 4:10 PM CST Goals: [...] Melchor RN Outcome: Progressing 10/28/2023 1610 by Erikc Melchor RN Outcome: Progressing Goal: Will remain [...] 1610 by Erick Melchor RN Outcome: Progressing RIAL SCHEDULER * Plan of Care - Ritu Marin [...] pain meds. VS and drain output documented. RIAL SCHEDULER * Significant Event - Viry Patterson MD [...] Medicine Consults will sign off. Please call [phone] for further questions. Viry Patterson MD PGY3 Internal Medicine RIAL SCHEDULER * Assessment & Plan Note - Viry Patterson MD - 10/26/2023 5:11 PM MATERIAL SCHEDULER Associated Problem(s): Pulmonary embolism (HCC) Patient with new PE on CT PE 10/23. Tolerating heparin gtt. Likely provoked in setting of recent surgery. - Patient will need at least 3 months of anticoagulation, and can follow up with PCP for consideration of discontinuation - If no other surgical interventions planned at this time, can transition to therapeutic Lovenox vsEliquis per primary team. RIAL SCHEDULER * Plan of Care - Luana Savage RN - 10/26/2023 2:49 PM CST Per Medical Chart/Rounds/IDR: Per IDR rounds with Doubler Operator, Cloud Consultant, Charge Nurse, and MD, the patient is [...] please check the treatment team in [facility] for the assigned business case analyst or contact the weekend Case Management phone RIAL SCHEDULER * Plan of Care - Harvey Horn [...] 2.5L via nasal cannula. Repositioned for comfort. RIAL SCHEDULER RIAL SCHEDULER * Significant Event - Tia Nolan NP - 10/25/2023 8:13 PM MATERIAL SCHEDULER CHUGG-OUT (SICU to OU/Floor Transfer) SICU MD [...] Ruano of the ortho service. QUESTIONS? Call [phone] ([phone]). RIAL SCHEDULER * Consults, Subsequent - James Silva MD [...] unlikely the patient will require anti-seizure medication intermodal customer service, but it is reasonable to con tinue [...] provide their number in the discharge instructions: [phone] The neurology consult service will sign off at this time. Please call the neurology consult phone at [phone] (Senior) with questions. James Silva MD Neurology resident PGY-3 RIAL SCHEDULER * Plan of Care - Tamia Holman RN - 10/25/2023 10:41 AM CST Goals: Clinical Goals for the Shift: VSS, pending MRI, pain control, continue heparin drip, PM labs Summary: Plans for the day, pain control, VSS, labs/monitor hepain gtt, MRI pending. 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 Phan stated that they have a good support system. Do you have a Yarsani Preference or Affiliation?: No Are there any Yarsani Practices that are important to maintain while [...] More than three times a week Attends Yarsani Services: Never Active Member of Clubs or [...] concerns for her at this time. (10/24/23 3207) Risk to Self and Others: Risk to [...] including surrogate decision makers, durable power of banking attorney, and advanced directives. Patient has a [...] CM following for discharge planning. GEN Medina, PHYSICAL EDUCATION AIDE RIAL SCHEDULER * Significant Event - Nasir Manzanares MD - 10/23/2023 10:14 PM MATERIAL SCHEDULER At the end of the OR case, [...] Hayder Vu MD at 10/23/2023 11:31 PM MATERIAL SCHEDULER RIAL SCHEDULER RIAL SCHEDULER Associated attestation - Hayder Vu Jr., MD - 10/23/2023 11:31 PM MATERIAL SCHEDULER Upon transfer to PACU, patient was noted [...] SICU. I have spoken with his , Phna, twice and have updated her on his situation. Appreciate excellent care by SICU. We will continue to follow closely. Hayder Vu Jr., MD Press Bucker Department of Orthopaedic Surgery Division of Spine Surgery [facility] [place], [place] * Op Note - Hayder Vu MD - 10/23/2023 5:14 PM CST Operative Report Surgeon Hayder Vu MD Merchandise For Resale Purchasing Agent(s) Nasir Manzanares MD Anesthesia General endotracheal. Preoperative [...] of the L5 spinous process. A lamina instructional coach was placed between the remainder of the [...] placed under fluoroscopic guidance. A Globus Sable [id number] 7-14mm 15 Deg lordo tic cage was [...] obstruction. The decompression was confirmed with a Trinchera elevator which was able to be passed [...] Implant Name Type Inv. Item Serial No. Director Of Undergraduate Admissions Lot No. LRB No. Used Action [employer] Crushed Chip Frozen Graft 30ml Bone Cancellous [id number] - [id number] [employer] CrushedChip Frozen Graft 30ml Bone Cancellous [id number] [employer] [id number] N/A 1 Implanted Cerevo Allograft Bone Putty 2.5CC 700-025 - [id number] Cerevo Allograft Bone Putty2.5CC 700-025 [employer] [id number] N/A 1 Implanted [employer] Creo Od7.5 Mm L55 Mm Thread Polyaxial Spine Screw Bone Titanium 5146.1757 - [id number] [employer] Creo Od7.5 Mm L55 Mm Thread Polyaxial Spine Screw Bone Titanium 5146.1757 [employer] N/A 1 Implanted [employer] Creo Od7.5 Mm L50 Mm Thread Polyaxial Spine Screw Bone Titanium 5146.1752 - [id number] [employer] Creo Od7.5 Mm L50 Mm Thread Polyaxial Spine Screw Bone Titanium 5146.1752 [employer] N/A 3 Implanted [employer] Creo Thread Spinal Cap Locking Nonsterile 1119.0010 - [id number] [employer] Creo Thread Spinal Cap Locking Nonsterile 1119.0010 [employer] N/A 4 Implanted [employer] Implant Spinal Sable [id number] 7-14mm 15 Deg 1172.2121S - [id number] [employer] Implant Spinal Sable [id number] 7-14mm 15 Deg 1172.2121S [employer] N/A 1 Implanted [employer] Creo 5.5mm 45mm Curve Daniel Spinal Titanium 1119.7045 - [id number] [employer] Creo 5.5mm 45mm Curve Daniel Spinal Titanium 1119.7045 [employer] N/A 2 Implanted Specimens None. Counts Correct. Estimated Blood Loss 150 mL. Total IV Fluids 1500 mL. Complications None. Condition on Discharge from OR Stable. Hayder Vu Jr., MD Press Bucker Department of Orthopaedic Surgery Division of Spine Surgery [facility] [place], [place] Operative Report dictated by Hayder Vu MD on 10/26/23 using Fluency Direct. Transcriptionvariances may occur. RIAL SCHEDULER RIAL SCHEDULER RIAL SCHEDULER * Brief Op Note - Nasir Manzanares MD - 10/23/2023 5:14 PM CST Operative Progress Note Surgical Team: Surgeon(s) and Role: * Hayder Vu MD - Primary * Nasir Manzanares MD - Resident - Assisting Anesthesiologist: Ann Salazar MD MARKING DEVICES ASSEMBLER: Deisy Snyder CRNA Masking Machine Feeder: Alice Vaughn MD Customer Account Administrator: Yeni Walker RN; Rena Michelle RN Scrub Relief: Sergio-Keltonur, Rad, ST Scrub: Teo Stiles, Java Software Architect: Belen Valdez [place] FLOAT: Oneyda Foley NP [...] Implant Name Type Inv. Item Serial No. Director Of Undergraduate Admissions Lot No. LRB No. Used Action [employer]OURCE Crushed Chip Frozen Graft 30ml Bone Cancellous [id number] - [id number] [employer] CrushedChip Frozen Graft 30ml Bone Cancellous [id number] All[employer]ource [id number] N/A 1 Implanted [employer] Allograft Bone Putty 2.5CC 700-025 - [id number] [employer] Allograft Bone Putty2.5CC 700-025 Cerapedics Inc [id number] N/A 1 Implanted [employer] Creo Od7.5 Mm L55 Mm Thread Polyaxial Spine Screw Bone Titanium 5146.1757 - [id number] [employer] Creo Od7.5 Mm L55 Mm Thread Polyaxial Spine Screw Bone Titanium 5146.1757 [employer] N/A 1 Implanted [employer] Creo Od7.5 Mm L50 Mm Thread Polyaxial Spine Screw Bone Titanium 5146.1752 - [id number] [employer] Creo Od7.5 Mm L50 Mm Thread Polyaxial Spine Screw Bone Titanium 5146.1752 [employer] N/A 3 Implanted [employer] Creo Thread Spinal Cap Locking Nonsterile 1119.0010 - [id number] [employer] Creo Thread Spinal Cap Locking Nonsterile 1119.0010 [employer] N/A 4 Implanted [employer] Implant Spinal Sable [id number] 7-14mm 15 Deg 1172.2121S - [id number] [employer] Implant Spinal Sable [id number] 7-14mm 15 Deg 1172.2121S [employer] N/A 1 Implanted [employer] Creo 5.5mm 45mm Curve Daniel Spinal Titanium 1119.7045 - [id number] [employer] Creo 5.5mm 45mm Curve Daniel [...] Hayder Vu MD at 10/26/2023 12:57 PM MATERIAL SCHEDULER RIAL SCHEDULER RIAL SCHEDULER * Plan of Care - Stefany Crook RN - 10/23/2023 12:06 AM CST Problem: Safety: Goal: Will remain free from falls Outcome: Progressing Goals: Clinical Goals for the Shift: VSS, pain management, safety and comfort Summary: RIAL SCHEDULER * Plan of Care - Lisa Rudolph [...] Goal: Pain level will decrease Outcome: Progressing RIAL SCHEDULER * Plan of Care - Lana Turcios [...] VSS, pain management, safety and comfort Summary: RIAL SCHEDULER * Plan of Care - Harmony Norman [...] Goal: Pain level will decrease Outcome: Progressing RIAL SCHEDULER * Plan of Care - Johnnie Flores [...] with VS WNL, pain free, and safe. RIAL SCHEDULER * Plan of Care - Brandyn Cain [...] Shift: VS WNL, pain control and safety. RIAL SCHEDULER * Plan of Care - Johnnie Flores [...] pain was under control with prn medication. RIAL SCHEDULER * Consults, Subsequent - Vero Tolentino MD - 10/19/2023 10:01 AM MATERIAL SCHEDULER Images from the original note were not [...] or concerns, please page Urology through the air press operator. Vero Tolentino MD 10/19/2023 Cosigned by Fredrick Mcneil MD at 10/19/2023 10:25 AM MATERIAL SCHEDULER RIAL SCHEDULER RIAL SCHEDULER * Plan of Care - Brandyn Cain [...] Goal: Pain level will decrease Outcome: Ongoing RIAL SCHEDULER * Plan of Care - Frieda Cai [...] unmanageable or unbearable will improve Outcome: Progressing RIAL SCHEDULER * Plan of Care - Torey Mckenna RN - 10/18/2023 3:26 PM CST Per Medical Chart/Rounds/DCAM: IDR ADD: TBD Plan & referrals made/in place: [facility], [facility] [place] [place]. Patient went to OR with urology [...] and/or family are agreeable with plan. manager mac will continue to follow and assist with discharge planning as needed. If any further discharge needs arise, please contact the covering business case analyst. RIAL SCHEDULER * Consults, Subsequent - Vero Tolentino MD - 10/18/2023 3:15 PM MATERIAL SCHEDULER Images from the original note were not [...] or concerns, please page Urology through the air press operator. Vero Tolentino MD 10/18/2023 Cosigned by Gabriel Bennett MD at 10/18/2023 6:54 PM MATERIAL SCHEDULER RIAL SCHEDULER RIAL SCHEDULER RIAL SCHEDULER Associated attestation - Gabriel Bennett MD - 10/18/2023 6:54 PM MATERIAL SCHEDULER I have seen and examined the patient [...] to get PET scan done over on [facility]. RIAL SCHEDULER * Plan of Care - Rosi Fernandes MD - 10/18/2023 11:19 AM MATERIAL SCHEDULER Mr. Evans is a 73 yo male [...] from 6:00 to 18:00 (Sunday-Sunday), please call [phone].If you want to contact Urology consults after hours (18:00 to 6:00) and over the weekend, please call the air press operator. Cosigned by Gabriel Bennett MD at 10/18/2023 3:59 PM MATERIAL SCHEDULER RIAL SCHEDULER RIAL SCHEDULER * Op Note - Gabriel Bennett MD - 10/18/2023 8:45 AM CST OPERATIVE REPORT SURGEON Gabriel Bennett M.D. PRESSER MACHINE Vero Tolentino MD ANESTHESIA General. PREOPERATIVE DIAGNOSIS [...] ensure proper patient and proper procedure. A 22-Guinean rigid cystoscope was introduced into the urethra [...] present and participated in the entire procedure. RIAL SCHEDULER * Plan of Care - Christal Gacría RN - 10/18/2023 6:48 AM CST Goals: [...] Goal: Pain level will decrease Outcome: Progressing RIAL SCHEDULER * Plan of Care - Lisa Rudolph [...] unmanageable or unbearable will improve Outcome: Progressing RIAL SCHEDULER * Consults, Subsequent - Vero Tolentino MD - 10/17/2023 11:41 AM MATERIAL SCHEDULER Images from the original note were not [...] or concerns, please page Urology through the air press operator. Vero Tolentino MD 10/17/2023 Cosigned by Maris Montilla MD at 10/18/2023 9:04 AM MATERIAL SCHEDULER RIAL SCHEDULER RIAL SCHEDULER * Plan of Care - Stacy Tim [...] keep pt free from injury and comfortable RIAL SCHEDULER * Plan of Care - Rebecca Lozano [...] Activity: Goal: Mobility will improve Outcome: Progressing RIAL SCHEDULER * Plan of Care - Dionne Palafox [...] medications given withpartial relief. Vital signs stable. RIAL SCHEDULER * Plan of Care - Lana Turcios [...] q 8 hours, pain management, encourage activity RIAL SCHEDULER * Assessment & Plan Note - Jimenez Henao MD - 10/15/2023 9:06 AM MATERIAL SCHEDULER Associated Problem(s): Left perinephric collection, 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 Likely post procedure complication. Urology following - CT urogram on 10/16 notes presence of L perinephric hematoma - Continue to trend white count, renal function and fever curve RIAL SCHEDULER RIAL SCHEDULER RIAL SCHEDULER * Consults, Subsequent - Vero Tolentino MD - 10/15/2023 6:38 AM MATERIAL SCHEDULER Images from the original note were not [...] was obtained. Prior to beginning the procedure, [place] Protocol was performed to confirm the patient's [...] or concerns, please page Urology through the air press operator. Vero Tolentino MD 10/14/2023 Cosigned by Fredrick Mcneil MD at 10/17/2023 5:10 PM MATERIAL SCHEDULER RIAL SCHEDULER RIAL SCHEDULER RIAL SCHEDULER * Plan of Care - Lyn Tolliver [...] Provided comfort and safety. Nephrostomy dressing changed. RIAL SCHEDULER * Plan of Care - Sue Allison [...] pressure high, MD notified. Patient resting comfortably. RIAL SCHEDULER * Post-Procedure Note - Ana Alfaro MD - 10/14/2023 1:46 PM CST Radiology Brief Post Procedure Note Attending: Dr. Hughes Client Technical Support Associate: Dr. Alfaro Sedation/Anesthesia: Min Sedation Pre-Op/Pre-Procedure Diagnosis: Hydronephrosis Post-Op/Post-Procedure Diagnosis: Mild hydronephrosis with blood clots in the collecting system andmoderate hydroureter Procedure Performed: Right percutaneous PCN placement Procedure Findings: Successful PCN placement Complications: None Estimated Blood Loss: < 30 ml Specimens: 10 ml aspirate sent to the lab Condition: Stable Full report to follow. RIAL SCHEDULER * Pre-Procedure Note - Ana Alfaro MD [...] (premix) 2,000 mg, 2,000 mg, intravenous, Q24H [facility], Severo Merlos MD, 2,000 mg at 10/14/23 [...] mg, 4 mg, intravenous, Q6H PRN, Severo eMrlos MD, 4 mg at 10/14/23 0326 pantoprazole [...] been discussed with the patient and/or their sales representative metals. All questions answered and they agree to proceed. RIAL SCHEDULER RIAL SCHEDULER * Plan of Care - Lyn Tolliver [...] Observed Strict intake and output. Monitored hematuria. RIAL SCHEDULER * Consults, Subsequent - Vero Tolentino MD - 10/13/2023 5:57 PM MATERIAL SCHEDULER Images from the original note were not [...] or concerns, please page Urology through the air press operator. Vero Tolentino MD 10/13/2023 Cosigned by Fredrick Mcneil MD at 10/13/2023 11:37 PM MATERIAL SCHEDULER RIAL SCHEDULER RIAL SCHEDULER RIAL SCHEDULER * Initial Assessments - Torey Mckenna RN - 10/13/2023 2:42 PM MATERIAL SCHEDULER CM Initial Assessment Interview Note Information Obtained From: Patient (10/13/231439) in the room Admission Source: from ED Impression: 73 yo male admitted for UTI. Plan Includes: to establish a safe discharge plan Primary Source of Transportation: Does the patient need discharge transport arranged?: (unknown, as [place] location unknown) (10/13/231439) Health Insurance Coverage: [facility] Medicare Prescription Coverage: yes Pharmacy: [facility] [address] [place] [id number] [employer] [id number] [employer] [facility] [id number] Primary Care Provider: Rl Medina DO Prior [...] Collaboration with patient, MD, direct care nurse, Cloud Consultant, and other members of the health care team to assure needed interventions completed. 2. Return patient to optimal level of self-care post discharge. 3. Doubler Operator will follow for Discharge Planning - [...] with the aftercare plan. Torey Mckenna RN RIAL SCHEDULER * Hospital Course - Jimenez Henao MD - 10/13/2023 2:42 PM MATERIAL SCHEDULER Hira Evans is a 73 y.o. male [...] ortho, his surgery as postponed to 10/23. RIAL SCHEDULER RIAL SCHEDULER RIAL SCHEDULER RIAL SCHEDULER RIAL SCHEDULER RIAL SCHEDULER RIAL SCHEDULER RIAL SCHEDULER RIAL SCHEDULER RIAL SCHEDULER RIAL SCHEDULER * Plan of Care - Js Cardenas [...] medicine. Pt currently NPO. Family at bedside. RIAL SCHEDULER * Post-Procedure Note - Ana Alfaro MD - 10/13/2023 9:46 AM CST Radiology Brief Post Procedure Note Attending: Dr. Mar Client Technical Support Associate: Dr. Alfaro Sedation/Anesthesia: Min Sedation Pre-Op/Pre-Procedure Diagnosis: Hydroureteronephrosis with an obstructing stone Post-Op/Post-Procedure Diagnosis: Same Procedure Performed: Attempted PCN placement Procedure Findings: Non-dilated calyces with contrast washing down the ureter. Complications: None Estimated Blood Loss: None Specimens: None Condition: Stable Full report to follow. RIAL SCHEDULER * Pre-Procedure Note - Ana Alfaro MD [...] been discussed with the patient and/or their sales representative metals. All questions answered and they agree to proceed. RIAL SCHEDULER * Assessment & Plan Note - Severo Merlos MD - 10/13/2023 5:39 AM MATERIAL SCHEDULER Associated Problem(s): Prostate cancer (HCC) S/p postprostatectomy RIAL SCHEDULER * Assessment & Plan Note - Marquise Lim MD - 10/13/2023 5:36 AM MATERIAL SCHEDULER Associated Problem(s): HTN (hypertension) Hold home irbesartan Restart diltiazem xl RIAL SCHEDULER RIAL SCHEDULER RIAL SCHEDULER * Assessment & Plan Note - Jimenez Henao MD - 10/13/2023 5:36 AM MATERIAL SCHEDULER Associated Problem(s): Hydronephrosis with urinary obstruction due [...] though OK to de-escalate to oral regimen RIAL SCHEDULER RIAL SCHEDULER RIAL SCHEDULER RIAL SCHEDULER RIAL SCHEDULER RIAL SCHEDULER RIAL SCHEDULER RIAL SCHEDULER RIAL SCHEDULER RIAL SCHEDULER RIAL SCHEDULER RIAL SCHEDULER RIAL SCHEDULER RIAL SCHEDULER RIAL SCHEDULER * Assessment & Plan Note - Jimenez Henao MD - 10/13/2023 5:36 AM MATERIAL SCHEDULER Associated Problem(s): Lumbar radiculopathy He has been [...] every 4 hours Surgery rescheduled to 10/23/23 RIAL SCHEDULER RIAL SCHEDULER RIAL SCHEDULER RIAL SCHEDULER RIAL SCHEDULER RIAL SCHEDULER * Assessment & Plan Note - Jimenez eHnao MD - 10/13/2023 5:35 AM MATERIAL SCHEDULER Associated Problem(s): UTI (urinary tract infection) - Complicated UTI with the presence of left ureteral stone and Pyelitis - urine culture grew E-coli which is pansusceptible. - Discussion with urology and orthopedic surgery: continue Keflex 500 mg q6hr as it appears patientwill stay in-house until OR on 10/22-10/23 -Antibiotics as above. RIAL SCHEDULER RIAL SCHEDULER RIAL SCHEDULER RIAL SCHEDULER RIAL SCHEDULER RIAL SCHEDULER * Plan of Care - Silvana Man [...] new admit orders/call light,bed controls,meal times,televisions controls. RIAL SCHEDULER * Perioperative Nursing Note - Philip Ha RN - 10/13/2023 3:41 AM MATERIAL SCHEDULER Pt is being signed out by Anesthesia. RIAL SCHEDULER * Op Note - Fredrick Mcneil MD [...] Consult IR for left nephrostomy tube placement RIAL SCHEDULER * ED Re-evaluation Note - Genaro Chavira MD - 10/12/2023 11:05 PM MATERIAL SCHEDULER ED Re-evaluation TRANSITION OF CARE: I, Genaro [...] MD Kurtz, Camden Emmett, MD Resident 10/12/232318 RIAL SCHEDULER documented in this encounter Plan of Treatment Pending Results Name Type Priority Associated Diagnoses Date /Time Erythrocyte sedimentation rate Lab STAT 10/12/2023 7:50 PM MATERIAL SCHEDULER CRP (acute phase) Lab STAT 023 7:50 PM MATERIAL SCHEDULER Basic metabolic panel Lab Routine 7:06 PM MATERIAL SCHEDULER Phosphorus Lab Routine 10/29/2023 9:5 3 PM MATERIAL SCHEDULER Magnesium Lab Routine 10/29/2023 9:5 3 PM MATERIAL SCHEDULER Scheduled Orders Name Type Priority Associated Diagnoses [...] 3 VIEWS Pending Discharge 10/30/2023 9:49 AM MATERIAL SCHEDULER EGFR Routine 10/29/2023 9:53 PM MATERIAL SCHEDULER DIFFERENTIAL AUTO Routine 10/29/2023 9:5 3 PM MATERIAL SCHEDULER CBC WITH AUTO DIFFERENTIAL Routine 10/29/2023 9:53 PM MATERIAL SCHEDULER PHOSPHORUS Routine 10/29/2023 9:53 PM MATERIAL SCHEDULER MAGNESIUM Routine 10/29/2023 9:53 PM MATERIAL SCHEDULER BASIC METABOLIC PANEL Routine 10/29/2023 9:53 PM MATERIAL SCHEDULER EGFR Routine 10/29/2023 4:40 AM MATERIAL SCHEDULER DIFFERENTIAL AUTO Routine 10/29/2023 4:4 0 AM MATERIAL SCHEDULER CBC WITH AUTO DIFFERENTIAL Routine 10/29/2023 4:40 AM MATERIAL SCHEDULER TYPE AND SCREEN Timed 10/29/2023 4:40 AM MATERIAL SCHEDULER PHOSPHORUS Routine 10/29/2023 4:40 AM MATERIAL SCHEDULER MAGNESIUM Routine 10/29/2023 4:40 AM MATERIAL SCHEDULER BASIC METABOLIC PANEL Routine 10/29/2023 4:[address] HEAD WO CONTRAST IP Routine 10/28/2023 5 :58 PM MATERIAL SCHEDULER EGFR Routine 10/27/2023 11:32 PM MATERIAL SCHEDULER DIFFERENTIAL AUTO Routine 10/27/2023 11: 32 PM MATERIAL SCHEDULER CBC WITH AUTO DIFFERENTIAL Routine 10/27/2023 11:32 PM MATERIAL SCHEDULER BASIC METABOLIC PANEL Routine 10/27/2023 11:32 PM MATERIAL SCHEDULER CBC WITHOUT DIFFERENTIAL Timed 10/27/2023 4:37 AM MATERIAL SCHEDULER PHOSPHORUS Routine 10/27/2023 4:37 AM MATERIAL SCHEDULER MAGNESIUM Routine 10/27/2023 4:37 AM MATERIAL SCHEDULER EGFR Routine 10/26/2023 8:07 PM MATERIAL SCHEDULER DIFFERENTIAL AUTO Routine 10/26/2023 8:0 7 PM MATERIAL SCHEDULER CBC WITH AUTO DIFFERENTIAL Routine 10/26/2023 8:07 PM MATERIAL SCHEDULER BASIC METABOLIC PANEL Routine 10/26/2023 8:07 PM MATERIAL SCHEDULER EGFR STAT 10/26/2023 5:28 PM MATERIAL SCHEDULER APTT STAT 10/26/2023 5:28 PM MATERIAL SCHEDULER PROTIME-INR STAT 10/26/2023 5:28 PM MATERIAL SCHEDULER CBC WITHOUT DIFFERENTIAL STAT 10/26/2023 5:28 PM MATERIAL SCHEDULER CREATININE STAT 10/26/2023 5:28 PM MATERIAL SCHEDULER DIFFERENTIAL AUTO Timed 10/26/2023 2:4 3 PM MATERIAL SCHEDULER CBC WITH AUTO DIFFERENTIAL Timed 10/26/2023 2:43 PM MATERIAL SCHEDULER APTT STAT 10/26/2023 11:09 AM MATERIAL SCHEDULER TRANSFUSE RED BLOOD CELLS Timed 10/26/2023 10:02 AM MATERIAL SCHEDULER PREPARE RBC Timed 10/26/2023 4:46 AM MATERIAL SCHEDULER TRANSFUSE RED BLOOD CELLS Timed 10/26/2023 3:55 AM MATERIAL SCHEDULER PREPARE RBC Timed 10/26/2023 3:03 AM MATERIAL SCHEDULER APTT STAT 10/26/2023 2:21 AM MATERIAL SCHEDULER CBC WITHOUT DIFFERENTIAL Timed 10/26/2023 2:21 AM MATERIAL SCHEDULER TYPE AND SCREEN Timed 10/26/2023 2:21 AM MATERIAL SCHEDULER PHOSPHORUS Routine 10/26/2023 2:21 AM MATERIAL SCHEDULER MAGNESIUM Routine 10/26/2023 2:21 AM MATERIAL SCHEDULER POTASSIUM, WHOLE BLOOD STAT 10/25/2023 10:11 PM MATERIAL SCHEDULER CRITICAL CARE Routine 10/25/2023 9:09 PM MATERIAL SCHEDULER Cardiac arrest (HCC) EGFR Routine 10/25/2023 8:41 PM MATERIAL SCHEDULER DIFFERENTIAL AUTO Routine 10/25/2023 8:4 1 PM MATERIAL SCHEDULER CBC WITH AUTO DIFFERENTIAL Routine 10/25/2023 8:41 PM MATERIAL SCHEDULER BASIC METABOLIC PANEL Routine 10/25/2023 8:41 PM MATERIAL SCHEDULER POCT GLUCOSE DEVICE Routine 10/25/2023 7 :22 PM MATERIAL SCHEDULER CRITICAL CARE Routine 10/25/2023 6:45 PM MATERIAL SCHEDULER Seizures, generalized convulsive (HCC) APTT STAT 10/25/2023 4:59 PM MATERIAL SCHEDULER POCT GLUCOSE DEVICE Routine 10/25/2023 3 :09 PM MATERIAL SCHEDULER MRI BRAIN EPILEPSY W WO CONTRAST IP Routine 10/25/2023 1:55 PM MATERIAL SCHEDULER POCT GLUCOSE DEVICE Routine 10/25/2023 1 0:57 AM MATERIAL SCHEDULER DIFFERENTIAL AUTO Timed 10/25/2023 10: 14 AM MATERIAL SCHEDULER CBC WITH AUTO DIFFERENTIAL Timed 10/25/2023 10:14 AM MATERIAL SCHEDULER APTT STAT 10/25/2023 10:14 AM MATERIAL SCHEDULER XR CHEST 1 VIEW ED Urgent/IP Urgent 10/25/2023 9:52 AM MATERIAL SCHEDULER POCT GLUCOSE DEVICE Routine 10/25/2023 6:58 AM MATERIAL SCHEDULER POCT GLUCOSE DEVICE Routine 10/25/2023 3 :44 AM MATERIAL SCHEDULER APTT STAT 10/25/2023 3:14 AM MATERIAL SCHEDULER POCT GLUCOSE DEVICE Routine 10/24/2023 1 1:45 PM MATERIAL SCHEDULER CRITICAL CARE Routine 10/24/2023 11:00 PM MATERIAL SCHEDULER Cardiac arrest (HCC) CALCIUM, IONIZED Routine 10/24/2023 9:11 PM MATERIAL SCHEDULER POCT GLUCOSE DEVICE Routine 10/24/2023 7 :42 PM MATERIAL SCHEDULER EGFR Routine 10/24/2023 7:06 PM MATERIAL SCHEDULER DIFFERENTIAL AUTO Routine 10/24/2023 7:0 6 PM MATERIAL SCHEDULER CBC WITH AUTO DIFFERENTIAL Routine 10/24/2023 7:06 PM MATERIAL SCHEDULER APTT Routine 10/24/2023 7:06 PM MATERIAL SCHEDULER PROTIME-INR Routine 10/24/2023 7:06 PM MATERIAL SCHEDULER PHOSPHORUS Routine 10/24/2023 7:06 PM MATERIAL SCHEDULER MAGNESIUM Routine 10/24/2023 7:06 PM MATERIAL SCHEDULER BASIC METABOLIC PANEL Routine 10/24/2023 7:06 PM MATERIAL SCHEDULER POCT GLUCOSE DEVICE Routine 10/24/2023 2 :58 PM MATERIAL SCHEDULER APTT STAT 10/24/2023 12:18 PM MATERIAL SCHEDULER TRANSTHORACIC ECHO (TTE) COMPLETE W DOPPLER/CF W CONTRAST STAT 10/24/2023 11:43 AM MATERIAL SCHEDULER POCT GLUCOSE DEVICE Routine 10/24/2023 1 1:04 AM MATERIAL SCHEDULER TROPONIN I HIGH-SENSITIVITY 6-HOUR Timed 10/24/2023 9:39 AM MATERIAL SCHEDULER TROPONIN I HIGH-SENSITIVITY Routine 10/24/2023 8:32 AM MATERIAL SCHEDULER POCT GLUCOSE DEVICE Routine 10/24/2023 7 :31 AM MATERIAL SCHEDULER CRITICAL CARE Routine 10/24/2023 6:48 AM MATERIAL SCHEDULER Cardiac arrest (HCC) TROPONIN I HIGH-SENSITIVITY 2-HOUR Timed 10/24/2023 5:38 AM MATERIAL SCHEDULER APTT STAT 10/24/2023 5:38 AM MATERIAL SCHEDULER EEG Routine 10/24/2023 5:02 AM MATERIAL SCHEDULER ECG 12-LEAD STAT 10/24/2023 3:44 AM MATERIAL SCHEDULER TROPONIN I HIGH-SENSITIVITY SERIES (BASELINE, 2HR, 4HR, 6HR) Routine 10/24/2023 3:38 AM MATERIAL SCHEDULER LACTATE Routine 10/24/2023 3:38 AM MATERIAL SCHEDULER CRITICAL RESULT CALLBACK CARDIO CHEM Routine 10/24/2023 3:38 AM MATERIAL SCHEDULER POCT GLUCOSE DEVICE Routine 10/24/2023 3 :25 AM MATERIAL SCHEDULER HIV 1/2 ANTIBODY PLUS P24 ANTIGEN Routine 10/24/2023 12:20 AM MATERIAL SCHEDULER POCT GLUCOSE DEVICE Routine 10/24/2023 1 2:20 AM MATERIAL SCHEDULER APTT STAT 10/24/2023 12:20 AM MATERIAL SCHEDULER PROTIME-INR STAT 10/24/2023 12:20 AM MATERIAL SCHEDULER CBC WITHOUT DIFFERENTIAL STAT 10/24/2023 12:[address] CHEST PE ABDOMEN PELVIS W CONTRAST ED Urgent/IP Urgent 10/23/2023 11:[address] HEAD WO CONTRAST Critical/Life-Th reatening 10/23/2023 11:48 PM MATERIAL SCHEDULER CRITICAL CARE Routine 10/23/2023 11:47 PM MATERIAL SCHEDULER Cardiac arrest (HCC) DIFFERENTIAL AUTO Routine 10/23/2023 11: 03 PM MATERIAL SCHEDULER CALCIUM, IONIZED STAT 10/23/2023 11:0 3 PM MATERIAL SCHEDULER CBC WITH AUTO DIFFERENTIAL Routine 10/23/2023 11:03 PM MATERIAL SCHEDULER MANUAL DIFFERENTIAL Routine 10/23/2023 1 1:03 PM MATERIAL SCHEDULER BLOOD GAS, ARTERIAL STAT 10/23/2023 1 1:03 PM MATERIAL SCHEDULER EGFR STAT 10/23/2023 11:02 PM MATERIAL SCHEDULER APTT STAT 10/23/2023 11:02 PM MATERIAL SCHEDULER PROTIME-INR STAT 10/23/2023 11:02 PM MATERIAL SCHEDULER PHOSPHORUS STAT 10/23/2023 11:02 PM MATERIAL SCHEDULER MAGNESIUM STAT 10/23/2023 11:02 PM MATERIAL SCHEDULER LIPID PANEL STAT 10/23/2023 11:02 PM MATERIAL SCHEDULER COMPREHENSIVE METABOLIC PANEL STAT 10/23/2023 11:02 PM MATERIAL SCHEDULER POC BLOOD GAS AND CHEMISTRIES, ARTERIAL Routine 10/23/2023 10:39 PM MATERIAL SCHEDULER POC BLOOD GAS AND CHEMISTRIES, ARTERIAL Routine 10/23/2023 10:07 PM MATERIAL SCHEDULER EGFR STAT 10/23/2023 9:52 PM MATERIAL SCHEDULER CBC WITHOUT DIFFERENTIAL STAT 10/23/2023 9:52 PM MATERIAL SCHEDULER BASIC METABOLIC PANEL STAT 10/23/2023 9:52 PM MATERIAL SCHEDULER POC BLOOD GAS AND CHEMISTRIES, VENOUS Routine 10/23/2023 9:50 PM MATERIAL SCHEDULER FL FLUOROSCOPY < 1 HOUR IP Routine 10/23/2023 8:45 PM MATERIAL SCHEDULER EGFR Routine 10/22/2023 9:39 PM MATERIAL SCHEDULER DIFFERENTIAL AUTO Routine 10/22/2023 9:3 9 PM MATERIAL SCHEDULER CBC WITH AUTO DIFFERENTIAL Routine 10/22/2023 9:39 PM MATERIAL SCHEDULER PROTIME-INR Routine 10/22/2023 9:39 PM MATERIAL SCHEDULER TYPE AND SCREEN Timed 10/22/2023 9:39 PM MATERIAL SCHEDULER BASIC METABOLIC PANEL Routine 10/22/2023 9:39 PM MATERIAL SCHEDULER XR CHEST 1 VIEW IP Routine 10/22/2023 6:24 AM MATERIAL SCHEDULER EGFR Routine 10/21/2023 10:52 PM MATERIAL SCHEDULER DIFFERENTIAL AUTO Routine 10/21/2023 10: 52 PM MATERIAL SCHEDULER CBC WITH AUTO DIFFERENTIAL Routine 10/21/2023 10:52 PM MATERIAL SCHEDULER BASIC METABOLIC PANEL Routine 10/21/2023 10:52 PM MATERIAL SCHEDULER EGFR Routine 10/20/2023 9:38 PM MATERIAL SCHEDULER DIFFERENTIAL AUTO Routine 10/20/2023 9:3 8 PM MATERIAL SCHEDULER CBC WITH AUTO DIFFERENTIAL Routine 10/20/2023 9:38 PM MATERIAL SCHEDULER BASIC METABOLIC PANEL Routine 10/20/2023 9:38 PM MATERIAL SCHEDULER EGFR Routine 10/19/2023 9:11 PM MATERIAL SCHEDULER DIFFERENTIAL AUTO Routine 10/19/2023 9:1 1 PM MATERIAL SCHEDULER CBC WITH AUTO DIFFERENTIAL Routine 10/19/2023 9:11 PM MATERIAL SCHEDULER BASIC METABOLIC PANEL Routine 10/19/2023 9:11 PM MATERIAL SCHEDULER EGFR Routine 10/18/2023 9:29 PM MATERIAL SCHEDULER DIFFERENTIAL AUTO Routine 10/18/2023 9:2 9 PM MATERIAL SCHEDULER CBC WITH AUTO DIFFERENTIAL Routine 10/18/2023 9:29 PM MATERIAL SCHEDULER BASIC METABOLIC PANEL Routine 10/18/2023 9:29 PM MATERIAL SCHEDULER DEXA AXIAL SKELETON BONE DENSITY 1 OR MORE SITES IP Routine 10/18/2023 12:45 PM MATERIAL SCHEDULER FL FLUOROSCOPY < 1 HOUR IP Routine 10/18/2023 11:27 AM MATERIAL SCHEDULER REMOVAL NEPHROSTOMY TUBE - FLOUROSCPY 10/18/2023 9:27 AM MATERIAL SCHEDULER Hydronephrosis with urinary obstruction due to renal calculus PLACEMENT PREOPERATIVE STENT - URETERAL 10/18/2023 9:27 AM MATERIAL SCHEDULER Hydronephrosis with urinary obstruction due to renal calculus URETEROSCOPY 10/18/2023 9:27 AM MATERIAL SCHEDULER Hydronephrosis with urinary obstruction due to renal calculus LITHOTRIPSY - LASER 10/18/2023 9 :27 AM MATERIAL SCHEDULER Hydronephrosis with urinary obstruction due to renal calculus PYELOGRAM - RETROGRADE 10/18/2023 9:27 AM MATERIAL SCHEDULER Hydronephrosis with urinary obstruction due to renal calculus CYSTOSCOPY 10/18/2023 9:27 AM MATERIAL SCHEDULER Hydronephrosis with urinary obstruction due to renal calculus EGFR Routine 10/17/2023 10:52 PM MATERIAL SCHEDULER DIFFERENTIAL AUTO Routine 10/17/2023 10: 52 PM MATERIAL SCHEDULER CBC WITH AUTO DIFFERENTIAL Routine 10/17/2023 10:52 PM MATERIAL SCHEDULER APTT Routine 10/17/2023 10:52 PM MATERIAL SCHEDULER PROTIME-INR Routine 10/17/2023 10:52 PM MATERIAL SCHEDULER BASIC METABOLIC PANEL Routine 10/17/2023 10:[address] UROGRAM IP Routine 10/16/2023 12:36 PM MATERIAL SCHEDULER PERCUTANEOUS NEPHROSTOMY PCN LEFT IP Routine 10/14/2023 1:38 PM MATERIAL SCHEDULER URINALYSIS AND REFLEX TO MICROSCOPIC AND CULTURE Routine 10/14/2023 1:35 PM MATERIAL SCHEDULER URINALYSIS, MICROSCOPIC ONLY Routine 10/14/2023 1:35 PM MATERIAL SCHEDULER URINE CULTURE Routine 10/14/2023 1:35 PM MATERIAL SCHEDULER US KIDNEY COMPLETE Timed 10/14/2023 7: 15 AM MATERIAL SCHEDULER EGFR Routine 10/14/2023 6:30 AM MATERIAL SCHEDULER DIFFERENTIAL AUTO Routine 10/14/2023 6:3 0 AM MATERIAL SCHEDULER CBC WITH AUTO DIFFERENTIAL Routine 10/14/2023 6:30 AM MATERIAL SCHEDULER COMPREHENSIVE METABOLIC PANEL Routine 10/14/2023 6:30 AM MATERIAL SCHEDULER BLOOD CULTURE Routine 10/13/2023 10:59 PM MATERIAL SCHEDULER BLOOD CULTURE Routine 10/13/2023 11:01 AM MATERIAL SCHEDULER FL FLUOROSCOPY < 1 HOUR ED Urgent/IP Urgent 10/13/2023 9:48 AM MATERIAL SCHEDULER EGFR Routine 10/13/2023 6:50 AM MATERIAL SCHEDULER DIFFERENTIAL AUTO Routine 10/13/2023 6:5 0 AM MATERIAL SCHEDULER CBC WITH AUTO DIFFERENTIAL Routine 10/13/2023 6:50 AM MATERIAL SCHEDULER COMPREHENSIVE METABOLIC PANEL Routine 10/13/2023 6:50 AM MATERIAL SCHEDULER FL FLUOROSCOPY < 1 HOUR IP Routine 10/13/2023 3:00 AM MATERIAL SCHEDULER MRI SPINE TOTAL COMPLETE W WO CONTRAST ED 10/12/2023 11:44 PM MATERIAL SCHEDULER BLOOD CULTURE STAT 10/12/2023 9:[address] CHEST ABDOMEN PELVIS W CONTRAST ED 10/12/2023 9:00 PM MATERIAL SCHEDULER LACTATE STAT 10/12/2023 7:50 PM MATERIAL SCHEDULER EGFR STAT 10/12/2023 7:50 PM MATERIAL SCHEDULER DIFFERENTIAL AUTO STAT 10/12/2023 7:5 0 PM MATERIAL SCHEDULER URINALYSIS AND REFLEX TO MICROSCOPIC AND CULTURE STAT 10/12/2023 7:50 PM MATERIAL SCHEDULER CBC WITH AUTO DIFFERENTIAL STAT 10/12/2023 7:50 PM MATERIAL SCHEDULER BLOOD CULTURE STAT 10/12/2023 7:50 PM MATERIAL SCHEDULER URINALYSIS, MICROSCOPIC ONLY STAT 10/12/2023 7:50 PM MATERIAL SCHEDULER ERYTHROCYTE SEDIMENTATION RATE STAT 10/12/2023 7:50 PM MATERIAL SCHEDULER URINE CULTURE STAT 10/12/2023 7:50 PM MATERIAL SCHEDULER CRP (ACUTE PHASE) STAT 10/12/2023 7:5 0 PM MATERIAL SCHEDULER BASIC METABOLIC PANEL STAT 10/12/2023 7:50 PM MATERIAL SCHEDULER documented in this encounter Results * XR Spine Lumbar 2 or 3 Views (10/30/2023 9:49 AM MATERIAL SCHEDULER) Anatomical Region Laterality Modality Spine N/A Computed Radiogr aphy 10/30/2023 10:1 9 AM MATERIAL SCHEDULER Impressions 10/30/2023 10:25 AM MATERIAL SCHEDULER 1. ??Posterior instrumented spinal fusion from L4 to L5 with combined interbody fusion. Dictated by: Tamia Rojas MD The radiology attending physician has personally reviewed this study, and had reviewed and/or edited this written report and agrees with it. Electronically signed by: Dmitry Navarro MD Narrative 10/30/2023 10:25 AM MATERIAL SCHEDULER EXAMINATION: XR SPINE LUMBAR 2 OR 3 [...] by: Dmitry Navarro MD us Rafael Rodriguez EQUIPMENT STERILIZER IMG XR PROCEDURES Final Resu lt * eGFR (10/29/2023 9:53 PM MATERIAL SCHEDULER) eGFR 85 >=60 mL/min/1. 73 m2 [facility] [...] last reviewed 2021. Blood 10/29/2023 9:53 PM MATERIAL SCHEDULER 10/29/2023 10:11 PM MATERIAL SCHEDULER us Tia Nolan NP LAB BLOOD ORDERABLES F inal Result [facility] Department [place] [address] * Magnesium (10/29/2023 9:53 PM MATERIAL SCHEDULER) Pathologist [facility] Magnesium 1.7 1.4 - 2.5 mg/dL [facility] Blood 10/29/2023 9:53 PM MATERIAL SCHEDULER 10/29/2023 10:11 PM MATERIAL SCHEDULER Hayder Vu Jr., MD LAB BLOOD ORDERABLE S Final Result [facility] Department [place] [address] * Phosphorus (10/29/2023 9:53 PM MATERIAL SCHEDULER) Pathologist [facility] Phosphorus, pl 2.6 2.3 - 4.5 mg/dL [facility] Blood 10/29/2023 9:53 PM MATERIAL SCHEDULER 10/29/2023 10:11 PM MATERIAL SCHEDULER Hayder Vu Jr., MD LAB BLOOD ORDERABLE S Final Result Performing Organization Address City/[facility] de Phone Number [facility] Department [place] [address] * Differential, auto (10/29/2023 9:53 PM MATERIAL SCHEDULER) [facility] Neutrophil abs 4.9 1.5 - 6.5 K/cumm [facility] Imm gran abs 0.1 0.0 - 0.1 K/cumm [facility] Lymphocyte abs 1.3 0.8 - 3.3 K/cumm [facility] [...] revised on 2018. Eosinophil pct 2.2 % [facility] Comment: Interpretive Data Percent cell count reference ranges are not reported, since discordance with absolute values may lead to misinterpretation of CBC data. Current Interpretive Data was last revised on 2018. Basophil pct 0.1 % [facility] Comment: Interpretive Data Percent cell count reference ranges are not reported, since discordance with absolute values may lead to misinterpretation of CBC data. Current Interpretive Data was last revised on 2018. Blood 10/29/2023 9:53 PM MATERIAL SCHEDULER 10/29/2023 10:11 PM MATERIAL SCHEDULER us Tia Nolan EQUIPMENT STERILIZER LAB BLOOD ORDERABLES F inal Result [facility] Department [place] [address] * (ABNORMAL) CBC with auto differential (10/29/2023 9:53 PM MATERIAL SCHEDULER) WBC 7.2 3.8 - 9.9 K/cumm [facility] [...] [facility] Blood 10/29/2023 9:53 PM MATERIAL SCHEDULER 10/29/2023 10:11 PM MATERIAL SCHEDULER us Tia Nolan EQUIPMENT STERILIZER LAB BLOOD ORDERABLES F inal Result [facility] Department [place] [address] * (ABNORMAL) Basic metabolic panel (10/29/2023 9:53 PM MATERIAL SCHEDULER) Pathologist [facility] Sodium 137 135 - 145 mmol/L [facility] [...] Calcium 8.1(L) 8.5 - 10.3 mg/dL [facility] Blood 10/29/2023 9:53 PM MATERIAL SCHEDULER 10/29/2023 10:11 PM MATERIAL SCHEDULER Tia Nolan EQUIPMENT STERILIZER LAB BLOOD ORDERABLES F inal Result [facility] Department [place] [address] * eGFR (10/29/2023 4:40 AM MATERIAL SCHEDULER) eGFR >90 >=60 mL/min/1. 73 m2 [facility] [...] last reviewed 2021. Blood 10/29/2023 4:40 AM MATERIAL SCHEDULER 10/29/2023 5:04 AM MATERIAL SCHEDULER us Tia Nolan NP LAB BLOOD ORDERABLES F inal Result [facility] Department [place] [address] * Differential, auto (10/29/2023 4:40 AM MATERIAL SCHEDULER) Neutrophil abs 3.6 1.5 - 6.5 K/cumm [facility] Imm gran abs 0.1 0.0 - [...] revised on 2018. Lymphocyte pct 18.9 % [facility] Comment: Interpretive Data Percent cell count reference ranges are not reported, since discordance with absolute values may lead to misinterpretation of CBC data. Current Interpretive Data was last revised on 2018. Monocyte pct 10.4 % [facility] Comment: Interpretive Data [...] revised on 2018. Blood 10/29/2023 4:40 AM MATERIAL SCHEDULER 10/29/2023 5:05 AM MATERIAL SCHEDULER Tia Nolan EQUIPMENT STERILIZER LAB BLOOD ORDERABLES F inal Result Performing Organization Address City/[facility] Co de Phone Number [facility] Department [place] [address] * Type and screen (10/29/2023 4:40 AM MATERIAL SCHEDULER) Pathologist [facility] Jigna, indirect Negative ABO Rh O Positive [facility] Blood 10/29/2023 4:40 AM MATERIAL SCHEDULER 10/29/2023 5:09 AM MATERIAL SCHEDULER Narrative [facility] - 10/29/2023 6:37 AM MATERIAL SCHEDULER Has the patient had Daratumumab or Isatuximab in the past 6 months?->Unknown Tia Nolan NP LAB BLOOD BANK TEST OR DERABLES Final Result Performing Organization Address [facility] de Phone Number [facility] [place] [place] [address] * (ABNORMAL) CBC with auto differential (10/29/2023 4:40 AM MATERIAL SCHEDULER) Pathologist [facility] WBC 5.4 3.8 - 9.9 K/cumm [facility] [...] [facility] Blood 10/29/2023 4:40 AM MATERIAL SCHEDULER 10/29/2023 5:05 AM MATERIAL SCHEDULER Tia Nolan EQUIPMENT STERILIZER LAB BLOOD ORDERABLES F inal Result [facility] Department [place] [address] * (ABNORMAL) Basic metabolic panel (10/29/2023 4:40 AM MATERIAL SCHEDULER) Sodium 139 135 - 145 mmol/L [facility] [...] [facility] Blood 10/29/2023 4:40 AM MATERIAL SCHEDULER 10/29/2023 5:04 AM MATERIAL SCHEDULER Tia Nolan EQUIPMENT STERILIZER LAB BLOOD ORDERABLES F inal Result Performing Organization Address [facility] [place] [address] * Phosphorus (10/29/2023 4:40 AM MATERIAL SCHEDULER) Phosphorus, pl 2.7 2.3 - 4.5 mg/dL [facility] Blood 10/29/2023 4:40 AM MATERIAL SCHEDULER 10/29/2023 5:05 AM MATERIAL SCHEDULER Tia Nolan EQUIPMENT STERILIZER LAB BLOOD ORDERABLES F inal Result Performing Organization Address [facility] [place] [address] * Magnesium (10/29/2023 4:40 AM MATERIAL SCHEDULER) Magnesium 1.8 1.4 - 2.5 mg/dL [facility] Blood 10/29/2023 4:40 AM MATERIAL SCHEDULER 10/29/2023 5:05 AM MATERIAL SCHEDULER Tia Nolan EQUIPMENT STERILIZER LAB BLOOD ORDERABLES F inal Result Performing Organization Address [facility] de Phone Number [facility] [place] [place] [address] * CT Head WO Contrast (10/28/2023 5:58 PM MATERIAL SCHEDULER) Anatomical Region Laterality Modality Head and Neck N/A Computed Tomogra phy 10/28/2023 8:46 PM MATERIAL SCHEDULER Impressions 10/29/2023 10:19 AM MATERIAL SCHEDULER 1. ??Thin bilateral subdural collections along the [...] Landen Perez M.D. Narrative 10/29/2023 10:19 AM MATERIAL SCHEDULER EXAMINATION: CT head without contrast HISTORY: Subdural [...] Final Result * eGFR (10/27/2023 11:32 PM MATERIAL SCHEDULER) Pathologist [facility] eGFR >90 >=60 mL/min/1. 73 m2 [facility] [...] reviewed 2021. Blood 10/27/2023 11:3 2 PM MATERIAL SCHEDULER 10/28/2023 12:27 AM MATERIAL SCHEDULER Tia Nolan NP LAB BLOOD ORDERABLES F inal Result [facility] Department [place] [address] * Differential, auto (10/27/2023 11:32 PM MATERIAL SCHEDULER) Neutrophil abs 3.9 1.5 - 6.5 K/cumm [facility] Imm gran abs 0.1 0.0 - 0.1 K/cumm [facility] Lymphocyte abs 1.2 0.8 - 3.3 K/cumm [facility] Monocyte abs 0.6 0.2 - 0.8 K/cumm [facility] Eosinophil abs 0.2 0.0 - 0.5 K/cumm [facility] Basophil abs 0.0 0.0 - 0.1 [...] on 2018. Basophil pct 0.2 % [facility] Comment: Interpretive Data Percent cell count reference ranges are not reported, since discordance with absolute values may lead to misinterpretation of CBC data. Current Interpretive Data was last revised on 2018. Blood 10/27/2023 11:3 2 PM MATERIAL SCHEDULER 10/28/2023 12:26 AM MATERIAL SCHEDULER Tia Nolan EQUIPMENT STERILIZER LAB BLOOD ORDERABLES F inal Result Performing Organization Address [facility]/ZIP Co de Phone Number [facility] Department [place] [address] * (ABNORMAL) CBC with auto differential (10/27/2023 11:32 PM MATERIAL SCHEDULER) Pathologist [facility] WBC 6.0 3.8 - 9.9 K/cumm [facility] Blood 10/27/2023 11:3 2 PM MATERIAL SCHEDULER 10/28/2023 12:26 AM MATERIAL SCHEDULER Tia Nolan EQUIPMENT STERILIZER LAB BLOOD ORDERABLES F inal Result Performing Organization Address City/[facility]/ZIP Co de Phone Number [facility] [place] [address] * (ABNORMAL) Basic metabolic panel (10/27/2023 11:32 PM MATERIAL SCHEDULER) Pathologist [facility] Sodium 135 135 - 145 mmol/L [facility] Blood 10/27/2023 11:3 2 PM MATERIAL SCHEDULER 10/28/2023 12:27 AM MATERIAL SCHEDULER Tia Nolan NP LAB BLOOD ORDERABLES F inal Result Performing Organization Address [facility] Co de Phone Number [facility] Department [place] [address] * Phosphorus (10/27/2023 4:37 AM MATERIAL SCHEDULER) Phosphorus, pl 2.5 2.3 - 4.5 mg/dL [facility] Blood 10/27/2023 4:37 AM MATERIAL SCHEDULER 10/27/2023 4:59 AM MATERIAL SCHEDULER Tia Nolan NP LAB BLOOD ORDERABLES F inal Result Performing Organization Address [facility] Co de Phone Number [facility] [place] [address] * Magnesium (10/27/2023 4:37 AM MATERIAL SCHEDULER) Pathologist [facility] Magnesium 1.9 1.4 - 2.5 mg/dL [facility] Blood 10/27/2023 4:37 AM MATERIAL SCHEDULER 10/27/2023 4:59 AM MATERIAL SCHEDULER Tia Nolan NP LAB BLOOD ORDERABLES F inal Result Performing Organization Address City/State/[facility] Co de Phone Number [facility] [place] [address] * (ABNORMAL) CBC without differential (10/27/2023 4:37 AM MATERIAL SCHEDULER) [facility] WBC 7.1 3.8 - 9.9 K/cumm [facility] [...] [facility] Blood 10/27/2023 4:37 AM MATERIAL SCHEDULER 10/27/2023 5:07 AM MATERIAL SCHEDULER Narrative [facility] - 10/27/2023 5:17 AM MATERIAL SCHEDULER While on heparin infusion Tia Nolan NP LAB BLOOD ORDERABLES F inal Result [facility] Department [place] [address] * Transfuse RBC (10/26/2023 10:32 PM MATERIAL SCHEDULER) Blood Hayder Vu Jr., MD BLOOD TRANSFUSION O RDERABLES Final Result Performing Organization Address City/[facility] Co de Phone Number [facility] Department [place] [address] * Transfuse RBC: 1 Units (10/26/2023 10:32 PM MATERIAL SCHEDULER) Blood Hayder Vu Jr., MD BLOOD TRANSFUSION O RDERABLES Final Result * eGFR (10/26/2023 8:07 PM MATERIAL SCHEDULER) eGFR >90 >=60 mL/min/1. 73 m2 [facility] [...] last reviewed 2021. Blood 10/26/2023 8:07 PM MATERIAL SCHEDULER 10/26/2023 9:01 PM MATERIAL SCHEDULER us Tia Nolan EQUIPMENT STERILIZER LAB BLOOD ORDERABLES F inal Result [facility] Department [place] [address] * (ABNORMAL) Differential, auto (10/26/2023 8:07 PM MATERIAL SCHEDULER) Neutrophil abs 6.7(H) 1.5 - 6.5 K/cumm [facility] Imm gran abs 0.1 0.0 - [...] revised on 2018. Blood 10/26/2023 8:07 PM MATERIAL SCHEDULER 10/26/2023 9:00 PM MATERIAL SCHEDULER us Tia Nolan EQUIPMENT STERILIZER LAB BLOOD ORDERABLES F inal Result [facility] [place] [address] * (ABNORMAL) CBC with auto differential (10/26/2023 8:07 PM MATERIAL SCHEDULER) WBC 8.6 3.8 - 9.9 K/cumm [facility] [...] [facility] Blood 10/26/2023 8:07 PM MATERIAL SCHEDULER 10/26/2023 9:00 PM MATERIAL SCHEDULER Tia Nolan EQUIPMENT STERILIZER LAB BLOOD ORDERABLES F inal Result Performing Organization Address City/[facility]/ZIP Co de Phone Number [facility] Department [place] [address] * (ABNORMAL) Basic metabolic panel (10/26/2023 8:07 PM MATERIAL SCHEDULER) [facility] Sodium 137 135 - 145 [...] [facility] Blood 10/26/2023 8:07 PM MATERIAL SCHEDULER 10/26/2023 9:01 PM MATERIAL SCHEDULER Tia Nolan NP LAB BLOOD ORDERABLES F inal Result Performing Organization Address [facility] Co de Phone Number [facility] Department [place] [address] * eGFR (10/26/2023 5:28 PM MATERIAL SCHEDULER) eGFR 90 >=60 mL/min/1. 73 m2 [facility] [...] last reviewed 2021. Blood 10/26/2023 5:28 PM MATERIAL SCHEDULER 10/26/2023 6:00 PM MATERIAL SCHEDULER us Kasey Rutledge NP LAB BLOOD ORDERABLES Final Resu lt [facility] [place] [address] * Creatinine (10/26/2023 5:28 PM MATERIAL SCHEDULER) Creatinine 0.91 0.80 - 1.30 mg/dL [facility] Blood 10/26/2023 5:28 PM MATERIAL SCHEDULER 10/26/2023 6:00 PM MATERIAL SCHEDULER Narrative [facility] - 10/26/2023 6:31 PM MATERIAL SCHEDULER Baseline prior to enoxaparin initiation. Kasey Tangrita LAB BLOOD ORDERABLES Final Resu lt Performing Organization Address [facility] [place] [address] * (ABNORMAL) aPTT (10/26/2023 5:28 PM MATERIAL SCHEDULER) Pathologist [facility] aPTT 64(H) 28 - 38 sec [facility] Comment: Interpretive Data Heparin therapeutic range: 66.0 - 100.0 seconds. Range based on correlation with therapeutic heparin activity range of 0.3 - 0.7 Units/mL. Current interpretive data was last revised on 2023. Blood 10/26/2023 5:28 PM MATERIAL SCHEDULER 10/26/2023 6:09 PM MATERIAL SCHEDULER Narrative [facility] - 10/26/2023 6:18 PM MATERIAL SCHEDULER Baseline prior to enoxaparin initiation. Kasey Aamir LAB BLOOD ORDERABLES Final Resu lt Performing Organization Address [facility] Co de Phone Number [facility] [place] [place] [address] * (ABNORMAL) CBC without differential (10/26/2023 5:28 PM MATERIAL SCHEDULER) [facility] WBC 9.1 3.8 - 9.9 K/cumm [facility] [...] [facility] Blood 10/26/2023 5:28 PM MATERIAL SCHEDULER 10/26/2023 6:01 PM MATERIAL SCHEDULER Narrative [facility] - 10/26/2023 6:09 PM MATERIAL SCHEDULER Baseline prior to enoxaparin initiation. [facility] LAB BLOOD ORDERABLES Final Resu lt Performing Organization Address [facility] Co de Phone Number [facility] [place] [address] * Protime-INR (10/26/2023 5:28 PM MATERIAL SCHEDULER) PT 13.2 10.3 - 13.7 sec [facility] INR 1.16 0.90 - 1.20 [facility] Comment: Interpretive data Oral anticoagulant therapeutic ranges: Venous thromboembolism prophylaxis or treatment: 2.0-3.0 CARDIOLOGY Standard range: 2.0-3.0 High-intensity range: 2.5-3.5 Refer to indication-specific guidelines for appropriate target ranges for prosthetic heart valve replacement. Current interpretive data was last revised on 2019. Blood 10/26/2023 5:28 PM MATERIAL SCHEDULER 10/26/2023 6:09 PM MATERIAL SCHEDULER Narrative [facility] - 10/26/2023 6:18 PM MATERIAL SCHEDULER Baseline prior [facility]oxaparin [facility]. [facility]LOOD ORDER[facility] Final Resu lt Performing Organization Address City/[facility]/ZIP Co de Phone Number [facility] [place] [address] * (ABNORMAL) Differential, auto (10/26/2023 2:43 PM MATERIAL SCHEDULER) Neutrophil abs 8.1(H) 1.5 - 6.5 K/cumm [...] [facility] Neutrophil pct 81.9 % [facility] Comment: Interpretive [...] revised on 2018. Blood 10/26/2023 2:43 PM MATERIAL SCHEDULER 10/26/2023 2:56 PM MATERIAL SCHEDULER us Kasey Rutledge NP LAB BLOOD ORDERABLES Final Resu lt [facility] [place] [address] * (ABNORMAL) CBC with auto differential (10/26/2023 2:43 PM MATERIAL SCHEDULER) [facility] WBC 9.9 3.8 - 9.9 K/cumm [facility] [...] [facility] Blood 10/26/2023 2:43 PM MATERIAL SCHEDULER 10/26/2023 2:56 PM MATERIAL SCHEDULER Narrative [facility] - 10/26/2023 3:05 PM MATERIAL SCHEDULER Please draw one hour after second unit of PRBC's us Kasey Rutledge NP LAB BLOOD ORDERABLES Final Resu lt [facility] Department [place] [address] * Transfuse RBC (10/26/2023 1:41 PM MATERIAL SCHEDULER) Blood us Hayder Vu Jr., MD BLOOD TRANSFUSION O RDERABLES Final Result [facility] [place] [address] * Transfuse RBC: 1 Units (10/26/2023 1:41 PM MATERIAL SCHEDULER) Blood Hayder Vu Jr., MD BLOOD TRANSFUSION O RDERABLES Final Result * (ABNORMAL) aPTT (10/26/2023 11:09 AM MATERIAL SCHEDULER) aPTT 74(H) 28 - 38 sec [facility] Comment: Interpretive Data Heparin therapeutic range: 66.0 - 100.0 seconds. Range based on correlation with therapeutic heparin activity range of 0.3 - 0.7 Units/mL. Current interpretive data was last revised on 2023. Blood 10/26/2023 11:0 9 AM MATERIAL SCHEDULER 10/26/2023 11:38 AM MATERIAL SCHEDULER Ca Ruano MD PhD LAB BLOOD ORDERABLES Final Result Performing Organization Address [facility] Co de Phone Number [facility] Department [place] [address] * Prepare RBC: 1 Units (10/26/2023 4:46 AM MATERIAL SCHEDULER) Pathologist [facility] Product code [id number] Unit Number [id number] [facility] Product Blood Type OPOS [facility] Dispense Status PRESUMED TRANSFUSED [facility] Blood 10/26/2023 4:46 AM MATERIAL SCHEDULER 10/26/2023 4:45 AM MATERIAL SCHEDULER Narrative [facility] - 10/26/2023 4:02 PM MATERIAL SCHEDULER Are special requirements needed? (All products are leukoreduced and CMV- safe)- >No Date required:-20231026 LRRBC # of [id number] Reasons:-Active bleeding, Hgb <8 g/dL} us Hayder Vu Jr., MD BLOOD BANK PRODUCT ORDERABLES Final Result Performing Organization Address [facility] Co de Phone Number [facility] Department [place] [address] * Prepare RBC: 1 Units (10/26/2023 3:03 AM MATERIAL SCHEDULER) Pathologist [facility] Product code [id number] Unit Number [id number] [facility] Product Blood Type OPOS [facility] Dispense Status PRESUMED TRANSFUSED [facility] Blood 10/26/2023 3:03 AM MATERIAL SCHEDULER 10/26/2023 3:03 AM MATERIAL SCHEDULER Narrative [facility] - 10/26/2023 4:01 PM MATERIAL SCHEDULER Are special requirements needed? (All products are leukoreduced and CMV- safe)- >No Date required:-20231026 LRRBC # of [id number] Reasons:-Hgb <7 g/dL} Hayder Vu Jr., MD BLOOD BANK PRODUCT ORDERABLES Final Result [facility] One [facility] Department [place] [address] * (ABNORMAL) aPTT (10/26/2023 2:21 AM MATERIAL SCHEDULER) Pathologist [facility] aPTT 58(H) 28 - 38 sec [facility] Comment: Interpretive Data Heparin therapeutic range: 66.0 - 100.0 seconds. Range based on correlation with therapeutic heparin activity range of 0.3 - 0.7 Units/mL. Current interpretive data was last revised on 2023. Blood 10/26/2023 2:21 AM MATERIAL SCHEDULER 10/26/2023 2:32 AM MATERIAL SCHEDULER Narrative [facility] - 10/26/2023 2:54 AM MATERIAL SCHEDULER Draw STAT PTT 6 hrs after initiation [...] Final Result Performing Organization Address [facility]/ZIP Co de Phone Number [facility] [place] [place] [address] * Type and screen (10/26/2023 2:21 AM MATERIAL SCHEDULER) [facility] Jigna, indirect Negative ABO Rh O Positive [facility] Blood 10/26/2023 2:21 AM MATERIAL SCHEDULER 10/26/2023 2:32 AM MATERIAL SCHEDULER Narrative [facility] - 10/26/2023 3:20 AM MATERIAL SCHEDULER Has the patient had Daratumumab or Isatuximab in the past 6 months?->Unknown Tia Nolan EQUIPMENT STERILIZER LAB BLOOD BANK TEST OR DERABLES Final Result Performing Organization Address [facility] Co de Phone Number [facility] [place] [place] [address] * (ABNORMAL) CBC without differential (10/26/2023 2:21 AM MATERIAL SCHEDULER) [facility] WBC 9.0 3.8 - 9.9 [...] [facility] Blood 10/26/2023 2:21 AM MATERIAL SCHEDULER 10/26/2023 2:40 AM MATERIAL SCHEDULER Tia Nolan EQUIPMENT STERILIZER LAB BLOOD ORDERABLES F inal Result Performing Organization Address [facility] Co de Phone Number [facility] [place] [address] * Phosphorus (10/26/2023 2:21 AM MATERIAL SCHEDULER) Phosphorus, pl 2.3 2.3 - 4.5 mg/dL [facility] Blood 10/26/2023 2:21 AM MATERIAL SCHEDULER 10/26/2023 2:40 AM MATERIAL SCHEDULER Tia Nolan EQUIPMENT STERILIZER LAB BLOOD ORDERABLES F inal Result Performing Organization Address [facility] de Phone Number [facility] [place] [place] [address] * Magnesium (10/26/2023 2:21 AM MATERIAL SCHEDULER) Magnesium 1.8 1.4 - 2.5 mg/dL [facility] Blood 10/26/2023 2:21 AM MATERIAL SCHEDULER 10/26/2023 2:40 AM MATERIAL SCHEDULER Tia Nolan EQUIPMENT STERILIZER LAB BLOOD ORDERABLES F inal Result Performing Organization Address [facility] de Phone Number [facility] Department [place] [address] * Potassium, whole blood (10/25/2023 10:11 PM MATERIAL SCHEDULER) Potassium, bld 3.5 3.3 - 4.9 mmol/L [facility] Blood 10/25/2023 10:1 1 PM MATERIAL SCHEDULER 10/25/2023 10:19 PM MATERIAL SCHEDULER Tia Nolan EQUIPMENT STERILIZER LAB BLOOD ORDERABLES F inal Result [facility] [place] [address] * Critical Care (10/25/2023 9:09 PM MATERIAL SCHEDULER) Narrative Wilder Arceo Jr., MD - 10/25/2023 9:09 PM MATERIAL SCHEDULER Tia Nolan NP ? 10/26/2023 12:17 AM [...] plan with the patient's team and other medical/business management consultant staff. This time was in addition [...] Final Result * eGFR (10/25/2023 8:41 PM MATERIAL SCHEDULER) [facility] eGFR >90 >=60 mL/min/1. 73 [...] last reviewed 2021. Blood 10/25/2023 8:41 PM MATERIAL SCHEDULER 10/25/2023 8:58 PM MATERIAL SCHEDULER us Oneyda Foley EQUIPMENT STERILIZER LAB BLOOD ORDERABLES Final Res ult Performing Organization Address City/State/[facility] Co de Phone Number [facility] One [facility] [place] [address] * (ABNORMAL) Differential, auto (10/25/2023 8:41 PM MATERIAL SCHEDULER) Neutrophil abs 7.3(H) 1.5 - 6.5 K/cumm [facility] Imm gran abs 0.1 0.0 - 0.1 K/cumm [facility] Lymphocyte abs 1.6 0.8 - 3.3 K/cumm [facility] Monocyte abs 0.8 0.2 - 0.8 K/cumm [facility] Eosinophil abs 0.3 0.0 - 0.5 K/cumm [facility] Basophil abs 0.0 0.0 - 0.1 K/cumm [facility] Neutrophil pct 72.9 % [facility] Comment: Interpretive Data [...] revised on 2018. Lymphocyte pct 15.7 % [facility] Comment: Interpretive Data [...] revised on 2018. Eosinophil pct 2.7 % [facility] Comment: [...] revised on 2018. Blood 10/25/2023 8:41 PM MATERIAL SCHEDULER 10/25/2023 8:58 PM MATERIAL SCHEDULER us Oneyda Foley NP LAB BLOOD ORDERABLES Final Res ult [facility] One [facility] [place] [address] * (ABNORMAL) CBC with auto differential (10/25/2023 8:41 PM MATERIAL SCHEDULER) Pathologist [facility] WBC 10.0(H) 3.8 - 9.9 K/cumm [facility] [...] [facility] Blood 10/25/2023 8:41 PM MATERIAL SCHEDULER 10/25/2023 8:58 PM MATERIAL SCHEDULER us Tia Nolan EQUIPMENT STERILIZER LAB BLOOD ORDERABLES F inal Result [facility] One [facility] [place] [address] * (ABNORMAL) Basic metabolic panel (10/25/2023 8:41 PM MATERIAL SCHEDULER) Sodium 133(L) 135 - 145 mmol/L [facility] [...] [facility] Blood 10/25/2023 8:41 PM MATERIAL SCHEDULER 10/25/2023 8:58 PM MATERIAL SCHEDULER us Tia Nolan EQUIPMENT STERILIZER LAB BLOOD ORDERABLES F inal Result Performing Organization Address [facility] Co de Phone Number [facility] [place] [address] * POCT glucose (10/25/2023 7:22 PM MATERIAL SCHEDULER) [facility] Signature Glucose, POC 162 70 - 199 mg/dL [facility] Blood 10/25/2023 7:22 PM MATERIAL SCHEDULER 10/25/2023 7:22 PM MATERIAL SCHEDULER us Hayder Vu Jr., MD LAB POCT ORDERABLES - DEVICE Final Result Performing Organization Address [facility] Co de Phone Number [facility] [place] [address] * Critical Care (10/25/2023 6:45 PM MATERIAL SCHEDULER) Narrative Luana Brady NP - 10/25/2023 6:45 PM MATERIAL SCHEDULER Launa Brady NP ? 10/25/2023 ??6:45 PM Critical [...] plan with the patient's team and other medical/business management consultant staff. This time was in addition to and separate from care provided by other practitioners on this day of service. ?? us Luana Brady EQUIPMENT STERILIZER IN CLINIC/BEDSIDE ORDERABLES Final Result * (ABNORMAL) aPTT (10/25/2023 4:59 PM MATERIAL SCHEDULER) aPTT 62(H) 28 - 38 sec [facility] Comment: Interpretive Data Heparin therapeutic range: 66.0 - 100.0 seconds. Range based on correlation with therapeutic heparin activity range of 0.3 - 0.7 Units/mL. Current interpretive data was last revised on 2023. Blood 10/25/2023 4:59 PM MATERIAL SCHEDULER 10/25/2023 5:12 PM MATERIAL SCHEDULER Narrative [facility] - 10/25/2023 5:34 PM MATERIAL SCHEDULER Draw STAT PTT 6 hrs after initiation of heparin infusion, draw STAT PTT 6 hours after each dose change, and every 6 hours until 2 consecutive PTTs are within therapeutic range. Once two consecutive PTT's are therapeutic (66-100 seconds), then draw PTT every AM until heparin is discontinued. Hayder Vu Jr., MD LAB BLOOD ORDERABLE S Final Result [facility] Department [place] [place] [address] * POCT glucose (10/25/2023 3:09 PM MATERIAL SCHEDULER) Pathologist [facility] Glucose, POC 118 70 - 199 mg/dL [facility] Blood 10/25/2023 3:09 PM MATERIAL SCHEDULER 10/25/2023 3:09 PM MATERIAL SCHEDULER Hayder Vu Jr., MD LAB POCT ORDERABLES - DEVICE Final Result [facility] [place] [employer] [place] [address] * MRI Brain Epilepsy W WO Contrast (10/25/2023 1:55 PM MATERIAL SCHEDULER) Anatomical Region Laterality Modality Head and Neck N/A Magnetic Resonan ce 10/25/2023 2:57 PM MATERIAL SCHEDULER Impressions 10/25/2023 3:42 PM MATERIAL SCHEDULER 1. ??Thin bilateral convexity subdural hematomas, not [...] Francia Schmitz M.D. Narrative 10/25/2023 3:42 PM MATERIAL SCHEDULER EXAMINATION: Magnetic resonance imaging (MRI) of the [...] Result * POCT glucose (10/25/2023 10:57 AM MATERIAL SCHEDULER) Glucose, POC 195 70 - 199 mg/dL [facility] Blood 10/25/2023 10:5 7 AM MATERIAL SCHEDULER 10/25/2023 10:57 AM MATERIAL SCHEDULER Hayder Vu Jr., MD LAB POCT ORDERABLES - DEVICE Final Result [facility] [place] [address] * (ABNORMAL) Differential, auto (10/25/2023 10:14 AM MATERIAL SCHEDULER) Neutrophil abs 10.6(H) 1.5 - 6.5 K/cumm [facility] Imm gran abs 0.1 0.0 - 0.1 K/cumm [facility] Lymphocyte abs 1.5 0.8 - 3.3 K/cumm [facility] Monocyte abs 0.9(H) 0.2 - 0.8 [...] revised on 2018. Lymphocyte pct 11.3 % [facility] Comment: Interpretive Data Percent cell count reference ranges are not reported, since discordance with absolute values may lead to misinterpretation of CBC data. Current Interpretive Data was last revised on 2018. Monocyte pct 6.9 % [facility] Comment: Interpretive Data Percent cell count reference ranges are not reported, since discordance with absolute values may lead to misinterpretation of CBC data. Current Interpretive Data was last revised on 2018. Eosinophil pct 1.1 % [facility] Comment: Interpretive Data Percent cell count reference ranges are not reported, since discordance with absolute values may lead to misinterpretation of CBC data. Current Interpretive Data was last revised on 2018. Basophil pct 0.7 % [facility] Comment: Interpretive Data Percent cell count reference ranges are not reported, since discordance with absolute values may lead to misinterpretation of CBC data. Current Interpretive Data was last revised on 2018. Blood 10/25/2023 10:1 4 AM MATERIAL SCHEDULER 10/25/2023 10:27 AM MATERIAL SCHEDULER Hayder Vu Jr., MD LAB BLOOD ORDERABLE S Final Result Performing Organization Address [facility] Co de Phone Number [facility] [place] [place] [address] * (ABNORMAL) aPTT (10/25/2023 10:14 AM MATERIAL SCHEDULER) Pathologist [facility] aPTT 60(H) 28 - 38 sec [facility] Comment: Interpretive Data Heparin therapeutic range: 66.0 - 100.0 seconds. Range based on correlation with therapeutic heparin activity range of 0.3 - 0.7 Units/mL. Current interpretive data was last revised on 2023. Blood 10/25/2023 10:1 4 AM MATERIAL SCHEDULER 10/25/2023 10:27 AM MATERIAL SCHEDULER Narrative [facility] - 10/25/2023 10:56 AM MATERIAL SCHEDULER Draw STAT PTT 6 hrs after initiation of heparin infusion, draw STAT PTT 6 hours after each dose change, and every 6 hours until 2 consecutive PTTs are within therapeutic range. Once two consecutive PTT's are therapeutic (66-100 seconds), then draw PTT every AM until heparin is discontinued. Hayder Vu Jr., MD LAB BLOOD ORDERABLE S Final Result Performing Organization Address [facility] de Phone Number [facility] [place] [place] [address] * (ABNORMAL) CBC with auto differential (10/25/2023 10:14 AM MATERIAL SCHEDULER) WBC 13.3(H) 3.8 - 9.9 K/cumm [facility] Blood 10/25/2023 10:1 4 AM MATERIAL SCHEDULER 10/25/2023 10:27 AM MATERIAL SCHEDULER Hayder Vu Jr., MD LAB BLOOD ORDERABLE S Final Result [facility] One [facility] [place] [address] * XR Chest 1 View (10/25/2023 9:52 AM MATERIAL SCHEDULER) Anatomical Region Laterality Modality Body, Chest N/A Computed Radiogr aphy 10/25/2023 11:1 3 AM MATERIAL SCHEDULER Impressions 10/25/2023 11:23 AM MATERIAL SCHEDULER Comparison made to chest radiograph 10/22/2023 at [...] Keely Williamson M.D. Narrative 10/25/2023 11:23 AM MATERIAL SCHEDULER EXAMINATION: 1 view chest radiograph Procedure Note [...] Result * POCT glucose (10/25/2023 6:58 AM MATERIAL SCHEDULER) Glucose, POC 129 70 - 199 mg/dL [facility] Blood 10/25/2023 6:58 AM MATERIAL SCHEDULER 10/25/2023 6:58 AM MATERIAL SCHEDULER Hayder Vu Jr., MD LAB POCT ORDERABLES - DEVICE Final Result Performing Organization Address [facility] Co de Phone Number [facility] [place] [address] * POCT glucose (10/25/2023 3:44 AM MATERIAL SCHEDULER) Glucose, POC 102 70 - 199 mg/dL [facility] Blood 10/25/2023 3:44 AM MATERIAL SCHEDULER 10/25/2023 3:44 AM MATERIAL SCHEDULER Hayder Vu Jr., MD LAB POCT ORDERABLES - DEVICE Final Result Performing Organization Address City/[facility] Co de Phone Number [facility] [place] [place] [address] * (ABNORMAL) aPTT (10/25/2023 3:14 AM MATERIAL SCHEDULER) aPTT 47(H) 28 - 38 sec [facility] Comment: Interpretive Data Heparin therapeutic range: 66.0 - 100.0 seconds. Range based on correlation with therapeutic heparin activity range of 0.3 - 0.7 Units/mL. Current interpretive data was last revised on 2023. Blood 10/25/2023 3:14 AM MATERIAL SCHEDULER 10/25/2023 3:25 AM MATERIAL SCHEDULER Narrative [facility] - 10/25/2023 3:47 AM MATERIAL SCHEDULER Draw STAT PTT 6 hrs after initiation [...] Final Result Performing Organization Address [facility] de Phone Number [facility] [place] [address] * POCT glucose (10/24/2023 11:45 PM MATERIAL SCHEDULER) [facility] Signature Glucose, POC 141 70 - 199 mg/dL [facility] Blood 10/24/2023 11:4 5 PM MATERIAL SCHEDULER 10/24/2023 11:45 PM MATERIAL SCHEDULER Hayder Vu Jr., MD LAB POCT ORDERABLES - DEVICE Final Result Performing Organization Address [facility] de Phone Number [facility] [place] [address] * Critical Care (10/24/2023 11:00 PM MATERIAL SCHEDULER) Narrative Wilder Arceo Jr., MD - 10/24/2023 11:00 PM MATERIAL SCHEDULER Wilder Arceo Jr., MD ? 10/25/2023 12:47 [...] plan with the ICU team and other medical/business management consultant staff, making frequent assessments and decisions [...] Acute pain/acute postoperative pain and Seizure ?? [id number] mycardial infarction (Non-STEMI) and Cardiac arrest ?? [...] * (ABNORMAL) Calcium, ionized (10/24/2023 9:11 PM MATERIAL SCHEDULER) [facility] Calcium, Ionized 4.38(L) 4.50 - 5.10 mg/dL [facility] Blood 10/24/2023 9:11 PM MATERIAL SCHEDULER 10/24/2023 9:18 PM MATERIAL SCHEDULER Hayder Vu Jr., MD LAB BLOOD ORDERABLE S Final Result [facility] Department [place] [address] * POCT glucose (10/24/2023 7:42 PM MATERIAL SCHEDULER) Glucose, POC 122 70 - 199 mg/dL [facility] Blood 10/24/2023 7:42 PM MATERIAL SCHEDULER 10/24/2023 7:42 PM MATERIAL SCHEDULER Hayder Vu Jr., MD LAB POCT ORDERABLES - DEVICE Final Result Performing Organization Address [facility] Co de Phone Number [facility] Department [place] [address] * (ABNORMAL) Basic metabolic panel (10/24/2023 7:06 PM MATERIAL SCHEDULER) Pathologist [facility] Sodium 136 135 - 145 mmol/L [facility] [...] [facility] Blood 10/24/2023 7:06 PM MATERIAL SCHEDULER 10/24/2023 7:12 PM MATERIAL SCHEDULER Hayder Vu Jr., MD LAB BLOOD ORDERABLE S Final Result Performing Organization Address City/[facility]/ZIP Co de Phone Number LAURA ZARAGO[facility] [place] [address] * eGFR (10/24/2023 7:06 PM MATERIAL SCHEDULER) Pathologist [facility] eGFR 86 >=60 mL/min/1. 73 m2 [facility] [...] last reviewed 2021. Blood 10/24/2023 7:06 PM MATERIAL SCHEDULER 10/24/2023 7:16 PM MATERIAL SCHEDULER us Hayder Vu Jr., MD LAB BLOOD ORDERABLE S Final Result Performing Organization Address [facility] Co de Phone Number [facility] Department [place] [address] * (ABNORMAL) Differential, auto (10/24/2023 7:06 PM MATERIAL SCHEDULER) Neutrophil abs 10.4(H) 1.5 - 6.5 K/cumm [facility] Imm gran abs 0.1 0.0 - 0.1 K/cumm [facility] Lymphocyte abs 1.2 0.8 - 3.3 K/cumm [facility] Monocyte abs 0.9(H) 0.2 - 0.8 K/cumm [facility] Eosinophil abs 0.1 0.0 - 0.5 K/cumm [facility] Basophil abs 0.1 0.0 - 0.1 K/cumm [facility] Neutrophil pct 82.0 % [facility] Comment: Interpretive [...] revised on 2018. Blood 10/24/2023 7:06 PM MATERIAL SCHEDULER 10/24/2023 7:16 PM MATERIAL SCHEDULER Oneyda Kabargina EQUIPMENT STERILIZER LAB BLOOD ORDERABLES Final Res ult Performing Organization Address [facility] [place] [address] * Phosphorus (10/24/2023 7:06 PM MATERIAL SCHEDULER) [facility] Phosphorus, pl 3.3 2.3 - 4.5 mg/dL [facility] Blood 10/24/2023 7:06 PM MATERIAL SCHEDULER 10/24/2023 7:12 PM MATERIAL SCHEDULER Tia Nolan EQUIPMENT STERILIZER LAB BLOOD ORDERABLES F inal Result Performing Organization Address [facility] Co de Phone Number [facility] [place] [place] [address] * Magnesium (10/24/2023 7:06 PM MATERIAL SCHEDULER) [facility] Magnesium 2.1 1.4 - 2.5 mg/dL [facility] Blood 10/24/2023 7:06 PM MATERIAL SCHEDULER 10/24/2023 7:12 PM MATERIAL SCHEDULER Tia Nolan EQUIPMENT STERILIZER LAB BLOOD ORDERABLES F inal Result Performing Organization Address [facility] Co de Phone Number [facility] [place] [place] [address] * (ABNORMAL) CBC with auto differential (10/24/2023 7:06 PM MATERIAL SCHEDULER) [facility] WBC 12.7(H) 3.8 - 9.9 [...] [facility] Blood 10/24/2023 7:06 PM MATERIAL SCHEDULER 10/24/2023 7:16 PM MATERIAL SCHEDULER Tia Nolan EQUIPMENT STERILIZER LAB BLOOD ORDERABLES F inal Result Performing Organization Address [facility] Co de Phone Number [facility] [place] [address] * aPTT (10/24/2023 7:06 PM MATERIAL SCHEDULER) aPTT 35 28 - 38 sec [facility] Comment: Interpretive Data Heparin therapeutic range: 66.0 - 100.0 seconds. Range based on correlation with therapeutic heparin activity range of 0.3 - 0.7 Units/mL. Current interpretive data was last revised on 2023. Blood 10/24/2023 7:06 PM MATERIAL SCHEDULER 10/24/2023 7:13 PM MATERIAL SCHEDULER Oneyda Foley EQUIPMENT STERILIZER LAB BLOOD ORDERABLES Final Res ult Performing Organization Address [facility] Co de Phone Number [facility] [place] [address] * (ABNORMAL) Protime-INR (10/24/2023 7:06 PM MATERIAL SCHEDULER) PT 13.8(H) 10.3 - 13.7 sec [facility] INR 1.21(H) 0.90 - 1.20 [facility] Comment: Interpretive data Oral anticoagulant therapeutic ranges: Venous thromboembolism prophylaxis or treatment: 2.0-3.0 CARDIOLOGY Standard range: 2.0-3.0 High-intensity range: 2.5-3.5 Refer to indication-specific guidelines for appropriate target ranges for prosthetic heart valve replacement. Current interpretive data was last revised on 2019. Blood 10/24/2023 7:06 PM MATERIAL SCHEDULER 10/24/2023 7:13 PM MATERIAL SCHEDULER Oneyda Foley NP LAB BLOOD ORDERABLES Final Res ult Performing Organization Address City/[facility]/ZIP Co de Phone Number [facility] [place] [address] * POCT glucose (10/24/2023 2:58 PM MATERIAL SCHEDULER) Glucose, POC 122 70 - 199 mg/dL [facility] Blood 10/24/2023 2:58 PM MATERIAL SCHEDULER 10/24/2023 2:58 PM MATERIAL SCHEDULER us Hayder Vu Jr., MD LAB POCT ORDERABLES - DEVICE Final Result Performing Organization Address [facility] Co de Phone Number [facility] Department [place] [address] * aPTT (10/24/2023 12:18 PM MATERIAL SCHEDULER) aPTT 35 28 - 38 sec [facility] Comment: Interpretive Data Heparin therapeutic range: 66.0 - 100.0 seconds. Range based on correlation with therapeutic heparin activity range of 0.3 - 0.7 Units/mL. Current interpretive data was last revised on 2023. Blood 10/24/2023 12:1 8 PM MATERIAL SCHEDULER 10/24/2023 12:30 PM MATERIAL SCHEDULER Narrative [facility] - 10/24/2023 12:55 PM MATERIAL SCHEDULER Draw STAT PTT 6 hrs after initiation of heparin infusion, draw STAT PTT 6 hours after each dose change, and every 6 hours until 2 consecutive PTTs are within therapeutic range. Once two consecutive PTT's are therapeutic (66-100 seconds), then draw PTT every AM until heparin is discontinued. us Hayder Vu Jr., MD LAB BLOOD ORDERABLE S Final Result [facility] Department [place] [address] * TRANSTHORACIC ECHO (TTE) COMPLETE W DOPPLER/CF W CONTRAST (10/24/2023 11:43 AM MATERIAL SCHEDULER) LV EF 70 % CARDIOREPORT Anatomical Region Laterality Modality Ultrasound 10/24/2023 7:00 AM MATERIAL SCHEDULER Narrative 10/24/2023 12:10 PM MATERIAL SCHEDULER Patient name: Hira Evans Date of test: 10/24/2023 Type of test: TTE w/Doppler Hospital #: 0 Date of : 1950 (M) [employer] Machine Operator: Krystal Wasserman [facility] Referring Physician: HAYDER VU MD Contrast Agent: 1.1 ml Optison Administered, (1.9 ml wasted). Contrast Administered by: icu nurse Supervised/Interpreted by: Woody White MD Diagnosis: Location: [facility] Reason for test: Post arrest, bilateral [...] 2=Hypo 3=Akinetic 4=Dyskin./Aneurysm 0=Not visualized) Parasternal Long [place]:MAS=1 BAS=1 MIL=1 HIPOLITO=1 Parasternal Short [place]:MAS=1 MIS=1 NM=1 MIL=1 MAL=1 MA=1 Apical 4 [...] MD By signing this report, the attending payroll associate certifies that he or she has personally supervised and interpreted the echocardiogram and has reviewed and or edited and agrees with the written comments contained within the report. Procedure Note Woody Hidalgo MD - 10/24/2023 Patient name: Hira Evans Date of test: 10/24/2023 Type of test: TTE w/Doppler Hospital #: 0 Date of : 1950 (M) [employer] Operator: Krystal Wasserman [facility] Referring Physician: HAYDER VU MD Contrast Agent: 1.1 ml Optison Administered, (1.9 ml wasted). Contrast Administered by: icu nurse Supervised/Interpreted by: Woody White MD Diagnosis: Location: [facility] Reason for test: Post arrest, bilateral [...] 2=Hypo 3=Akinetic 4=Dyskin./Aneurysm 0=Not visualized) Parasternal Long [place]:MAS=1 BAS=1 MIL=1 HIPOLITO=1 Parasternal Short [place]:MAS=1 MIS=1 NM=1 MIL=1 MAL=1 MA=1 Apical 4 [...] MD By signing this report, the attending payroll associate certifies that he or she has personally supervised and interpreted the echocardiogram and has reviewed and or edited and agrees with the written comments contained within the report. Hayder Vu Jr., MD CV ECHO PROCEDURES Final Result * POCT glucose (10/24/2023 11:04 AM MATERIAL SCHEDULER) Pathologist [facility] Glucose, POC 121 70 - 199 mg/dL [facility] Blood 10/24/2023 11:0 4 AM MATERIAL SCHEDULER 10/24/2023 11:04 AM MATERIAL SCHEDULER Hayder Vu Jr., MD LAB POCT ORDERABLES - DEVICE Final Result Performing Organization Address [facility] de Phone Number [facility] [place] [address] * (ABNORMAL) Troponin I high-sensitivity 6-hour (10/24/2023 9:39 AM MATERIAL SCHEDULER) [facility] Trop I hs 133(H) <=35 ng/L [facility] Comment: Interpretive Data For further [facility] resources including the diagnostic algorithm and an aid in interpretation, copy and paste this link: https://bjhlab.testcatalog.org/show/[email or web address] Current Interpretive Data last revised 2020. Previous critical value noted within 48 hours ago. Trop I hs pct delta -35(C) % [facility] Trop I hs interp Significa nt(C) [facility] Blood 10/24/2023 9:39 AM MATERIAL SCHEDULER 10/24/2023 9:54 AM MATERIAL SCHEDULER Hayder Vu Jr., MD LAB BLOOD ORDERABLE S Edited Result - Final Performing Organization Address [facility] de Phone Number [facility] Department [place] [address] * (ABNORMAL) Troponin I high-sensitivity (10/24/2023 8:32 AM MATERIAL SCHEDULER) Trop I hs 153(H) <=35 ng/L [facility] Comment: Interpretive Data For further hscTnI resources including the diagnostic algorithm and an aid in interpretation, copy and paste this link: [email or web address]://bjhlab.[email or web address]/show/[email or web address] Current Interpretive Data last revised 2020. Blood 10/24/2023 8:32 AM MATERIAL SCHEDULER 10/24/2023 8:59 AM MATERIAL SCHEDULER us Veronica MESA LAB BLOOD ORDERABLES Fi nal Result Performing Organization Address City/[facility]/ZIP Co de Phone Number [facility] [place] [address] * POCT glucose (10/24/2023 7:31 AM MATERIAL SCHEDULER) [facility] Glucose, POC 111 70 - 199 mg/dL [facility] Blood 10/24/2023 7:31 AM MATERIAL SCHEDULER 10/24/2023 7:31 AM MATERIAL SCHEDULER us Hayder Vu Jr., MD LAB POCT ORDERABLES - DEVICE Final Result Performing Organization Address City/[facility]/ZIP Co de Phone Number [facility] [place] [address] * Critical Care (10/24/2023 6:48 AM MATERIAL SCHEDULER) Narrative Avel Bourne MD - 10/24/2023 6:48 AM MATERIAL SCHEDULER Rob Langley NP ? 10/24/2023 ??5:31 PM [...] plan with the ICU team and other medical/business management consultant staff, making frequent assessments and decisions [...] Final Result * aPTT (10/24/2023 5:38 AM MATERIAL SCHEDULER) aPTT 30 28 - 38 sec [facility] Comment: Interpretive Data Heparin therapeutic range: 66.0 - 100.0 seconds. Range based on correlation with therapeutic heparin activity range of 0.3 - 0.7 Units/mL. Current interpretive data was last revised on 2023. Blood 10/24/2023 5:38 AM MATERIAL SCHEDULER 10/24/2023 5:43 AM MATERIAL SCHEDULER Narrative [facility] - 10/24/2023 6:06 AM MATERIAL SCHEDULER Draw STAT PTT 6 hrs after initiation of heparin infusion, draw STAT PTT 6 hours after each dose change, and every 6 hours until 2 consecutive PTTs are within therapeutic range. Once two consecutive PTT's are therapeutic (66-100 seconds), then draw PTT every AM until heparin is discontinued. Hayder Vu Jr., MD LAB BLOOD ORDERABLE S Final Result [facility] One [facility] Department [place] [address] * (ABNORMAL) Troponin I high-sensitivity 2-hour (10/24/2023 5:38 AM MATERIAL SCHEDULER) Trop I hs 195(H) <=35 ng/L [facility] Comment: Previous critical value noted within 48 hours ago. Interpretive Data For further hscTnI resources including the diagnostic algorithm and an aid in interpretation, copy and paste this link: https://bjhlab.testcatalog.org/show/[email or web address] Current Interpretive Data last revised 2020. Trop I hs pct delta -5 % [facility] Comment:Previous critical va lue noted within 48 hours ago. Trop I hs interp Equivocal [facility] Comment:Previous critical va lue noted within 48 hours ago. Blood 10/24/2023 5:38 AM MATERIAL SCHEDULER 10/24/2023 5:43 AM MATERIAL SCHEDULER us Hayder Vu Jr., MD LAB BLOOD ORDERABLE S Final Result [facility] One [facility] [place] [address] * EEG (10/24/2023 5:02 AM MATERIAL SCHEDULER) Anatomical Region Laterality Modality EEG Narrative 10/24/2023 4:40 PM MATERIAL SCHEDULER Routine EEG Report Patient Name: Hira Evans [facility] Record Number (MRN): [id number] [facility] Record: [id number] Date of (): 1950 EEG Date: 10/24/2023 [...] 32 channel EEG recording acquired on a [employer] EEG-1200 acquisition system. Scalp electrodes were placed [...] * ECG 12 lead (10/24/2023 3:44 AM MATERIAL SCHEDULER) Ventricular Rate EKG/Min 82 BPM [facility] Atrial Rate 82 BPM [facility] CA-Interval (MSEC) 166 ms [facility] QRS-Interval (MSEC) 78 ms [facility] QT-Interval (MSEC) 384 ms [facility] QTc 448 ms [facility] P [place] 34 degrees [facility] R [place] -30 degrees [facility] T [place] -13 degrees [facility] Diagnosis Normal sinus rhythm Left axis deviation Nonspecific ST abnormality Abnormal ECG No previous ECGs available Confirmed by ELLA LASSITER M.D ([id number]) on 10/25/2023 1:12:26 PM [facility] 10/24/2023 3:44 AM MATERIAL SCHEDULER 10/25/2023 1:12 PM MATERIAL SCHEDULER us Tia Nolan NP ECG ORDERABLES Final Result [facility] * Critical result callback Cardio chemistry (10/24/2023 3:38 AM MATERIAL SCHEDULER) Date Notified [id number] [facility] Time Notified 451 [facility] Test name Trop I hs [facility] Called/Read Back Edwige Porras [facility] Credentials RN [facility] Called By JO [facility] Blood 10/24/2023 3:38 AM MATERIAL SCHEDULER 10/24/2023 4:02 AM MATERIAL SCHEDULER Hayder Vu Jr., MD LAB BLOOD ORDERABLE S Final Result Performing Organization Address City/[facility] Co de Phone Number [facility] [place] [address] * (ABNORMAL) Troponin I high-sensitivity series (baseline, 2hr, 4hr, 6hr) (10/24/2023 3:38 AM MATERIAL SCHEDULER) Pathologist [facility] Trop I hs 206(C) <=35 ng/L [facility] Comment: reviewed Interpretive Data For further hscTnI resources including the diagnostic algorithm and an aid in interpretation, copy and paste this link: https://bjhlab.testcatalog.org/show/[email or web address] Current Interpretive Data last revised 2020. Blood 10/24/2023 3:38 AM MATERIAL SCHEDULER 10/24/2023 4:02 AM MATERIAL SCHEDULER Hayder Vu Jr., MD LAB BLOOD ORDERABLE S Final Result [facility] [place] [address] * Lactate (10/24/2023 3:38 AM MATERIAL SCHEDULER) Pathologist [facility] Lactate 0.9 0.7 - 2.0 mmol/L [facility] Blood 10/24/2023 3:38 AM MATERIAL SCHEDULER 10/24/2023 4:02 AM MATERIAL SCHEDULER Hayder Vu Jr., MD LAB BLOOD ORDERABLE S Final Result Performing Organization Address [facility] Co de Phone Number [facility] [place] [address] * POCT glucose (10/24/2023 3:25 AM MATERIAL SCHEDULER) Glucose, POC 180 70 - 199 mg/dL [facility] Blood 10/24/2023 3:25 AM MATERIAL SCHEDULER 10/24/2023 3:25 AM MATERIAL SCHEDULER Hayder Vu Jr., MD LAB POCT ORDERABLES - DEVICE Final Result Performing Organization Address [facility] [place] [address] * (ABNORMAL) POCT glucose (10/24/2023 12:20 AM MATERIAL SCHEDULER) Glucose, POC 252(H) 70 - 199 mg/dL [facility] Blood 10/24/2023 12:2 0 AM MATERIAL SCHEDULER 10/24/2023 12:20 AM MATERIAL SCHEDULER Hayder Vu Jr., MD LAB POCT ORDERABLES - DEVICE Final Result Performing Organization Address [facility] Co de Phone Number [facility] [place] [address] * (ABNORMAL) aPTT (10/24/2023 12:20 AM MATERIAL SCHEDULER) aPTT 27(L) 28 - 38 sec [facility] Comment: Interpretive Data Heparin therapeutic range: 66.0 - 100.0 seconds. Range based on correlation with therapeutic heparin activity range of 0.3 - 0.7 Units/mL. Current interpretive data was last revised on 2023. Blood 10/24/2023 12:2 0 AM MATERIAL SCHEDULER 10/24/2023 12:31 AM MATERIAL SCHEDULER Narrative [facility] - 10/24/2023 12:58 AM MATERIAL SCHEDULER Baseline prior to heparin initiation Hayder Vu Jr., MD LAB BLOOD ORDERABLE S Final Result [facility] One [facility] [place] [address] * (ABNORMAL) CBC without differential (10/24/2023 12:20 AM MATERIAL SCHEDULER) [facility] WBC 22.9(H) 3.8 - 9.9 [...] [facility] Blood 10/24/2023 12:2 0 AM MATERIAL SCHEDULER 10/24/2023 12:45 AM MATERIAL SCHEDULER Narrative [facility] - 10/24/2023 12:55 AM MATERIAL SCHEDULER Baseline prior to heparin initiation Hayder Vu Jr., MD LAB BLOOD ORDERABLE S Final Result [facility] One [facility] [place] [address] * Protime-INR (10/24/2023 12:20 AM MATERIAL SCHEDULER) PT 13.7 10.3 - 13.7 sec [facility] INR 1.20 0.90 - 1.20 [facility] Comment: Interpretive data Oral anticoagulant therapeutic ranges: Venous thromboembolism prophylaxis or treatment: 2.0-3.0 CARDIOLOGY Standard range: 2.0-3.0 High-intensity range: 2.5-3.5 Refer to indication-specific guidelines for appropriate target ranges for prosthetic heart valve replacement. Current interpretive data was last revised on 2019. Blood 10/24/2023 12:2 0 AM MATERIAL SCHEDULER 10/24/2023 12:31 AM MATERIAL SCHEDULER Narrative [facility] - 10/24/2023 12:58 AM MATERIAL SCHEDULER Baseline prior to heparin initiation Hayder Vu Jr., MD LAB BLOOD ORDERABLE S Final Result Performing Organization Address City/[facility] Co de Phone Number [facility] [place] [address] * HIV 1/2 Antibody plus p24 Antigen Blood (10/24/2023 12:20 AM MATERIAL SCHEDULER) HIV 1/2 ab + p24 ag Nonreactive Nonreactive [facility] Comment:Nonreactive for HIV- 1 antigen and HIV-1/HIV-2 antibodies. No laboratory evidence of HIV infection. If acute HIV infection is suspected, consider testing for HIV-1 RNA. Current interpretive data was last revised on 22. Blood 10/24/2023 12:2 0 AM MATERIAL SCHEDULER 10/24/2023 12:45 AM MATERIAL SCHEDULER Hayder Vu Jr., MD LAB MICROBIOLOGY - GENERAL ORDERABLES Final Result Performing Organization Address City/[facility]/ZIP Co de Phone Number [facility] [place] [address] * CT Chest PE (CTA) Abdomen Pelvis W Contrast (10/23/2023 11:48 PM MATERIAL SCHEDULER) Anatomical Region Laterality Modality Body N/A Computed Tomogra phy 10/24/2023 12:1 1 AM MATERIAL SCHEDULER Impressions 10/24/2023 7:15 AM MATERIAL SCHEDULER 1. ??Acute pulmonary emboli involving the distal [...] Clemente Mathew M.D. Narrative 10/24/2023 7:15 AM MATERIAL SCHEDULER EXAMINATION: CT CHEST PE (CTA) ABDOMEN PELVIS [...] were discussed with Dr. Mahan by Dr. hZu on 10/24/2023 at 00:11 Dictated by: Ra Zhu MD, PHD The radiology attending physician has personally reviewed this study, and had reviewed and/or edited this written report and agrees with it. Electronically signed by: Clemente Mathew M.D. Hayder uV Jr., MD IMG CT PROCEDURES F inal Result * CT Head WO Contrast (10/23/2023 11:48 PM MATERIAL SCHEDULER) Anatomical Region Laterality Modality Head and Neck N/A Computed Tomogra phy 10/24/2023 12:3 6 AM MATERIAL SCHEDULER Impressions 10/24/2023 11:45 AM MATERIAL SCHEDULER Subtle white matter hypoattenuation with loss of [...] Zac Mcgarry M.D. Narrative 10/24/2023 11:45 AM MATERIAL SCHEDULER EXAMINATION: CT head without contrast HISTORY: 73-year-old [...] Result * Critical Care (10/23/2023 11:47 PM MATERIAL SCHEDULER) Narrative Wilder Arceo Jr., MD - 10/23/2023 11:47 PM MATERIAL SCHEDULER Wilder Arceo Jr., MD ? 10/24/2023 ??3:28 [...] plan with the ICU team and other medical/business management consultant staff, making frequent assessments and decisions [...] * (ABNORMAL) Manual Differential (10/23/2023 11:03 PM MATERIAL SCHEDULER) Differential Auto [facility] Neutrophil abs 23.5(H) 1.5 - 6.5 K/cumm [facility] Imm gran abs 0.9(H) 0.0 - [...] [facility] Blood 10/23/2023 11:0 3 PM MATERIAL SCHEDULER 10/23/2023 11:43 PM MATERIAL SCHEDULER Jimenez Henao MD LAB BLOOD ORDERABLES Final Result [facility] [place] [address] * (ABNORMAL) Differential, auto (10/23/2023 11:03 PM MATERIAL SCHEDULER) Neutrophil abs 23.5(H) 1.5 - 6.5 K/cumm [facility] Imm gran abs 0.9(H) 0.0 - [...] 2018. Imm gran pct 3.4 % [facility] Comment: Interpretive Data Percent cell count reference ranges are not reported, since discordance with absolute values may lead to misinterpretation of CBC data. Current Interpretive Data was last revised on 2018. Lymphocyte pct 3.9 % [facility] Comment: Interpretive Data Percent cell count reference ranges are not reported, since discordance with absolute values may lead to misinterpretation of CBC data. Current Interpretive Data was last revised on 2018. Monocyte pct 3.9 % [facility] Comment: Interpretive Data Percent cell count reference ranges are not reported, since discordance with absolute values may lead to misinterpretation of CBC data. Current Interpretive Data was last revised on 2018. Eosinophil pct 0.2 % [facility] Comment: Interpretive Data Percent cell count reference ranges are not reported, since discordance with absolute values may lead to misinterpretation of CBC data. Current Interpretive Data was last revised on 2018. Basophil pct 0.4 % [facility] Comment: Interpretive Data Percent cell count reference ranges are not reported, since discordance with absolute values may lead to misinterpretation of CBC data. Current Interpretive Data was last revised on 2018. Blood 10/23/2023 11:0 3 PM MATERIAL SCHEDULER 10/23/2023 11:11 PM MATERIAL SCHEDULER us Jimenez Henao MD LAB BLOOD ORDERABLES Final Result [facility] [place] [address] * (ABNORMAL) Blood gas, arterial (10/23/2023 11:03 PM MATERIAL SCHEDULER) pH, Art 7.38 7.35 - 7.45 [facility] Blood 10/23/2023 11:0 3 PM MATERIAL SCHEDULER 10/23/2023 11:10 PM MATERIAL SCHEDULER Hayder Vu Jr., MD LAB BLOOD ORDERABLE S Final Result Performing Organization Address [facility] Co de Phone Number [facility] [place] [place] [address] * (ABNORMAL) Calcium, ionized (10/23/2023 11:03 PM MATERIAL SCHEDULER) Pathologist [facility] Calcium, Ionized 4.41(L) 4.50 - 5.10 mg/dL [facility] Blood 10/23/2023 11:0 3 PM MATERIAL SCHEDULER 10/23/2023 11:13 PM MATERIAL SCHEDULER Hayder Vu Jr., MD LAB BLOOD ORDERABLE S Final Result Performing Organization Address [facility] de Phone Number [facility] [place] [place] [address] * (ABNORMAL) CBC with auto differential (10/23/2023 11:03 PM MATERIAL SCHEDULER) Pathologist [facility] WBC 26.7(H) 3.8 - 9.9 K/cumm [facility] Blood 10/23/2023 11:0 3 PM MATERIAL SCHEDULER 10/23/2023 11:11 PM MATERIAL SCHEDULER us Tia Nolan EQUIPMENT STERILIZER LAB BLOOD ORDERABLES E dited Result - Final [facility] [place] [address] * (ABNORMAL) Lipid panel (10/23/2023 11:02 PM MATERIAL SCHEDULER) Cholesterol 162 30 - 199 mg/dL [facility] [...] revised on 2018. Triglycerides 134 <=149 mg/dL [facility] Comment: Interpretive Data [...] on 2018. HDL 34(L) >=40 mg/dL [facility] Comment: Interpretive Data Ages < or [...] on 2018. Non-HDL Cholesterol 128 mg/dL [facility] Comment: Interpretive Data Ages < or [...] last revised on 2018. Chol/HDL ratio 5 [facility] Blood 10/23/2023 11:0 2 PM MATERIAL SCHEDULER 10/23/2023 11:14 PM MATERIAL SCHEDULER Narrative [facility] - 10/24/2023 11:06 AM MATERIAL SCHEDULER This lipid panel was automatically ordered due to a significant change in Troponin. The dietary status of the patient at the collection time should be correlated with the lipid results. us Hayder Vu Jr., MD LAB BLOOD ORDERABLE S Final Result Performing Organization Address City/State/[facility] Co de Phone Number [facility] [place] [address] * eGFR (10/23/2023 11:02 PM MATERIAL SCHEDULER) Pathologist [facility] eGFR 74 >=60 mL/min/1. 73 m2 [facility] [...] reviewed 2021. Blood 10/23/2023 11:0 2 PM MATERIAL SCHEDULER 10/23/2023 11:14 PM MATERIAL SCHEDULER us Hayder Vu Jr., MD LAB BLOOD ORDERABLE S Final Result Performing Organization Address City/[facility] Co de Phone Number [facility] Department [place] [address] * (ABNORMAL) Phosphorus (10/23/2023 11:02 PM MATERIAL SCHEDULER) Phosphorus, pl 4.6(H) 2.3 - 4.5 mg/dL [facility] Blood 10/23/2023 11:0 2 PM MATERIAL SCHEDULER 10/23/2023 11:13 PM MATERIAL SCHEDULER Hayder Vu Jr., MD LAB BLOOD ORDERABLE S Final Result Performing Organization Address City/[facility]/ZIP Co de Phone Number [facility] Department [place] [address] * Magnesium (10/23/2023 11:02 PM MATERIAL SCHEDULER) Magnesium 2.0 1.4 - 2.5 mg/dL [facility] Blood 10/23/2023 11:0 2 PM MATERIAL SCHEDULER 10/23/2023 11:13 PM MATERIAL SCHEDULER Hayder Vu Jr., MD LAB BLOOD ORDERABLE S Final Result [facility] Department [place] [address] * (ABNORMAL) Comprehensive metabolic panel (10/23/2023 11:02 PM MATERIAL SCHEDULER) Pathologist [facility] Sodium 137 135 - 145 mmol/L [facility] Blood 10/23/2023 11:0 2 PM MATERIAL SCHEDULER 10/23/2023 11:13 PM MATERIAL SCHEDULER Hayder Vu Jr., MD LAB BLOOD ORDERABLE S Final Result Performing Organization Address [facility] de Phone Number [facility] [place] [employer] [place] [address] * (ABNORMAL) aPTT (10/23/2023 11:02 PM MATERIAL SCHEDULER) aPTT 25(L) 28 - 38 sec [facility] Comment: Interpretive Data Heparin therapeutic range: 66.0 - 100.0 seconds. Range based on correlation with therapeutic heparin activity range of 0.3 - 0.7 Units/mL. Current interpretive data was last revised on 2023. Blood 10/23/2023 11:0 2 PM MATERIAL SCHEDULER 10/23/2023 11:58 PM MATERIAL SCHEDULER Oneyda Foley NP LAB BLOOD ORDERABLES Final Res ult Performing Organization Address [facility] de Phone Number [facility] [place] [address] * (ABNORMAL) Protime-INR (10/23/2023 11:02 PM MATERIAL SCHEDULER) PT 13.9(H) 10.3 - 13.7 sec [facility] INR 1.22(H) 0.90 - 1.20 [facility] Comment: Interpretive data Oral anticoagulant therapeutic ranges: Venous thromboembolism prophylaxis or treatment: 2.0-3.0 CARDIOLOGY Standard range: 2.0-3.0 High-intensity range: 2.5-3.5 Refer to indication-specific guidelines for appropriate target ranges for prosthetic heart valve replacement. Current interpretive data was last revised on 2019. Blood 10/23/2023 11:0 2 PM MATERIAL SCHEDULER 10/23/2023 11:58 PM MATERIAL SCHEDULER us Oneyda Foley EQUIPMENT STERILIZER LAB BLOOD ORDERABLES Final Res ult [facility] Department [place] [address] * (ABNORMAL) POC Blood Gas and Chemistries, Arterial - (10/23/2023 10:39 PM MATERIAL SCHEDULER) Pathologist [facility] pH, Art POC 7.37 7.35 - 7.45 [facility] pCO2, Art POC 38 35 - 45 mmHg [facility] pO2, Art POC 137(H) 83 - 108 mmHg [facility] Na, POC 137 135 - 145 mmol/L [facility] K POC 4.0 3.3 - 4.9 mmol/L [facility] Comment: Interpretive Data This method is not able to assess for hemolysis, which may falsely increase potassium concentrations. If further testing is needed to evaluate this result, consider in-laboratory plasma potassium. Current Interpretive Data was last revised on 2022. Cl, POC 107 97 - 110 mmol/L [facility] Ionized Ca, POC 4.58 4.50 - 5.10 mg/dL [facility] Glucose, POC 247(H) 70 - 199 mg/dL [facility] Lactate, POC 4.6(C) 0.7 - 2.2 mmol/L [facility] SO2 (crys) arterial 100(H) 90 - 95 % [facility] Base excess, POC -3.0 mmol/L [facility] HCO3, Art POC 22 20 - 30 mmol/L [facility] Hct, POC 28.0(L) 41.4 - 51.6 % [facility] O2 Sat, Art POC (Calc) 99 % [facility] Total Hb, POC 9.2(L) 13.8 - 17.2 g/dL [facility] Blood 10/23/2023 10:3 9 PM MATERIAL SCHEDULER 10/23/2023 10:39 PM MATERIAL SCHEDULER us Hayder Vu Jr., MD LAB POCT ORDERABLES - DEVICE Final Result [facility] Department [place] [address] * (ABNORMAL) POC Blood Gas and Chemistries, Arterial - (10/23/2023 10:07 PM MATERIAL SCHEDULER) pH, Art POC 7.12(C) 7.35 - 7.45 [...] POC 104 97 - 110 mmol/L [facility] Ionized Ca, POC 4.67 4.50 - [...] POC 9.5(L) 13.8 - 17.2 g/dL [facility] Blood 10/23/2023 10:0 7 PM MATERIAL SCHEDULER 10/23/2023 10:07 PM MATERIAL SCHEDULER us Pipe Moseley MD LAB POCT ORDERABLES - DEV ICE Final Result [facility] Department [place] [address] * eGFR (10/23/2023 9:52 PM MATERIAL SCHEDULER) Pathologist [facility] eGFR 75 >=60 mL/min/1. 73 m2 [facility] Comment: Interpretive Data Reference [...] last reviewed 2021. Blood 10/23/2023 9:52 PM MATERIAL SCHEDULER 10/23/2023 10:01 PM MATERIAL SCHEDULER us Myke Smith MD PhD LAB BLOOD ORDERA BLES Final Result [facility] Department [place] [address] * (ABNORMAL) Basic metabolic panel (10/23/2023 9:52 PM MATERIAL SCHEDULER) Sodium 143 135 - 145 mmol/L [facility] Blood 10/23/2023 9:52 PM MATERIAL SCHEDULER 10/23/2023 10:01 PM MATERIAL SCHEDULER Myke Smith MD PhD LAB BLOOD ORDERA BLES Final Result [facility] Department [place] [address] * (ABNORMAL) CBC without differential (10/23/2023 9:52 PM MATERIAL SCHEDULER) [facility] WBC 23.8(H) 3.8 - 9.9 K/cumm [facility] [...] [facility] Blood 10/23/2023 9:52 PM MATERIAL SCHEDULER 10/23/2023 10:02 PM MATERIAL SCHEDULER us Myke Smith MD PhD LAB BLOOD ORDERA BLES Final Result [facility] Department [place] [address] * (ABNORMAL) POC Blood Gas and Chemistries, Venous - (10/23/2023 9:50 PM MATERIAL SCHEDULER) pH, Arturo POC 6.99(C) 7.32 - 7.43 [facility] pCO2, arturo POC 84(C) 40 - 50 mmHg [facility] pO2, arturo POC 42 mmHg [facility] Na, POC 139 135 - 145 mmol/L [facility] K POC 5.4(H) 3.3 - 4.9 [...] [facility] Blood 10/23/2023 9:50 PM MATERIAL SCHEDULER 10/23/2023 9:50 PM MATERIAL SCHEDULER us Pipe Moseley MD LAB POCT ORDERABLES - DEV ICE Final Result Performing Organization Address [facility] Co de Phone Number [facility] [place] [address] * [place] Fluoroscopy < 1 Hour (10/23/2023 8:45 PM MATERIAL SCHEDULER) Narrative [facility] - 10/23/2023 8:46 PM MATERIAL SCHEDULER The images from this study are not interpreted by Radiology. ??Please refer to the physician's procedure / OR operative note. us Hayder Vu Jr., MD IMG FLUOROSCOPY PRO CEDURES Final Result Performing Organization Address [facility] de Phone Number [email or web address] * eGFR (10/22/2023 9:39 PM MATERIAL SCHEDULER) eGFR 66 >=60 mL/min/1. 73 m2 [facility] [...] last reviewed 2021. Blood 10/22/2023 9:39 PM MATERIAL SCHEDULER 10/22/2023 10:23 PM MATERIAL SCHEDULER us Jimenez Henao MD LAB BLOOD ORDERABLES Final Result [facility] Department [place] [address] * (ABNORMAL) Differential, auto (10/22/2023 9:39 PM MATERIAL SCHEDULER) Neutrophil abs 6.2 1.5 - 6.5 K/cumm [facility] Imm gran abs 0.1 0.0 - 0.1 K/cumm [facility] Lymphocyte abs 1.3 0.8 - 3.3 K/cumm [facility] Monocyte abs 1.1(H) 0.2 - 0.8 K/cumm [facility] Eosinophil abs 0.1 0.0 - 0.5 K/cumm [facility] Basophil abs 0.1 0.0 - 0.1 K/cumm [facility] Neutrophil pct 70.2 % [facility] Comment: Interpretive Data [...] revised on 2018. Lymphocyte pct 14.4 % [facility] Comment: Interpretive Data Percent cell count reference ranges are not reported, since discordance with absolute values may lead to misinterpretation of CBC data. Current Interpretive Data was last revised on 2018. Monocyte pct 12.4 % [facility] Comment: Interpretive Data Percent cell count reference ranges are not reported, since discordance with absolute values may lead to misinterpretation of CBC data. Current Interpretive Data was last revised on 2018. Eosinophil pct 1.4 % [facility] Comment: Interpretive Data [...] revised on 2018. Blood 10/22/2023 9:39 PM MATERIAL SCHEDULER 10/22/2023 10:17 PM MATERIAL SCHEDULER us Jimenez Henao MD LAB BLOOD ORDERABLES Final Result Performing Organization Address City/[facility] Co de Phone Number [facility] [place] [address] * Type and screen (10/22/2023 9:39 PM MATERIAL SCHEDULER) Jigna, indirect Negative ABO Rh O Positive [facility] Blood 10/22/2023 9:39 PM MATERIAL SCHEDULER 10/22/2023 10:24 PM MATERIAL SCHEDULER Narrative [facility] - 10/22/2023 11:35 PM MATERIAL SCHEDULER Has the patient had Daratumumab or Isatuximab in the past 6 months?->Unknown us Jimenez Henao MD LAB BLOOD BANK TEST O RDERABLES Final Result Performing Organization Address City/[facility]/ZIP Co de Phone Number [facility] [place] [address] * Protime-INR (10/22/2023 9:39 PM MATERIAL SCHEDULER) [facility] PT 12.6 10.3 - 13.7 sec [facility] INR 1.11 0.90 - 1.20 [facility] Comment: Interpretive data Oral anticoagulant therapeutic ranges: Venous thromboembolism prophylaxis or treatment: 2.0-3.0 CARDIOLOGY Standard range: 2.0-3.0 High-intensity range: 2.5-3.5 Refer to indication-specific guidelines for appropriate target ranges for prosthetic heart valve replacement. Current interpretive data was last revised on 2019. Blood 10/22/2023 9:39 PM MATERIAL SCHEDULER 10/22/2023 10:26 PM MATERIAL SCHEDULER Jimenez Henao MD LAB BLOOD ORDERABLES Final Result [facility] [place] [address] * (ABNORMAL) CBC with auto differential (10/22/2023 9:39 PM MATERIAL SCHEDULER) [facility] WBC 8.8 3.8 - 9.9 [...] [facility] Blood 10/22/2023 9:39 PM MATERIAL SCHEDULER 10/22/2023 10:17 PM MATERIAL SCHEDULER Tia Nolan EQUIPMENT STERILIZER LAB BLOOD ORDERABLES F inal Result [facility] Department [place] [address] * (ABNORMAL) Basic metabolic panel (10/22/2023 9:39 PM MATERIAL SCHEDULER) Pathologist [facility] Sodium 134(L) 135 - 145 mmol/L [facility] Blood 10/22/2023 9:39 PM MATERIAL SCHEDULER 10/22/2023 10:23 PM MATERIAL SCHEDULER Tia Nolan NP LAB BLOOD ORDERABLES F inal Result Performing Organization Address City/[facility]/ZIP Co de Phone Number [facility] Department [place] [address] * XR Chest 1 View (10/22/2023 6:24 AM MATERIAL SCHEDULER) Anatomical Region Laterality Modality Body, Chest N/A Computed Radiogr aphy 10/22/2023 8:41 AM MATERIAL SCHEDULER Impressions 10/22/2023 12:03 PM MATERIAL SCHEDULER Comparison is made to CT chest abdomen [...] Maritza Miranda M.D. Narrative 10/22/2023 12:03 PM MATERIAL SCHEDULER EXAMINATION: 1 view chest radiograph Procedure Note [...] Resul t * eGFR (10/21/2023 10:52 PM MATERIAL SCHEDULER) eGFR 78 >=60 mL/min/1. 73 m2 [facility] [...] reviewed 2021. Blood 10/21/2023 10:5 2 PM MATERIAL SCHEDULER 10/21/2023 11:16 PM MATERIAL SCHEDULER us Jimenez Henao MD LAB BLOOD ORDERABLES Final Result [facility] Department of Laboratories [place], [place] [address] * (ABNORMAL) Differential, auto (10/21/2023 10:52 PM MATERIAL SCHEDULER) Neutrophil abs 5.0 1.5 - 6.5 K/cumm [facility] Imm gran abs 0.1 0.0 - 0.1 K/cumm [facility] Lymphocyte abs 1.4 0.8 - 3.3 K/cumm [facility] Monocyte abs 1.1(H) 0.2 - 0.8 K/cumm [facility] Eosinophil abs 0.1 0.0 - 0.5 K/cumm [facility] Basophil abs 0.0 0.0 - 0.1 K/cumm [facility] Neutrophil pct 65.0 % [facility] [...] on 2018. Blood 10/21/2023 10:5 2 PM MATERIAL SCHEDULER 10/21/2023 11:17 PM MATERIAL SCHEDULER us Jimenez Henao MD LAB BLOOD ORDERABLES Final Result [facility] [place] [address] * (ABNORMAL) CBC with auto differential (10/21/2023 10:52 PM MATERIAL SCHEDULER) WBC 7.7 3.8 - 9.9 K/cumm [facility] Blood 10/21/2023 10:5 2 PM MATERIAL SCHEDULER 10/21/2023 11:17 PM MATERIAL SCHEDULER us Tia Nolan EQUIPMENT STERILIZER LAB BLOOD ORDERABLES F inal Result [facility] [place] [address] * Basic metabolic panel (10/21/2023 10:52 PM MATERIAL SCHEDULER) Sodium 136 135 - 145 mmol/L [facility] [...] [facility] Blood 10/21/2023 10:5 2 PM MATERIAL SCHEDULER 10/21/2023 11:16 PM MATERIAL SCHEDULER us Tia Nolan EQUIPMENT STERILIZER LAB BLOOD ORDERABLES F inal Result [facility] [place] [address] * eGFR (10/20/2023 9:38 PM MATERIAL SCHEDULER) eGFR 80 >=60 mL/min/1. 73 m2 [facility] [...] last reviewed 2021. Blood 10/20/2023 9:38 PM MATERIAL SCHEDULER 10/20/2023 10:25 PM MATERIAL SCHEDULER Jimenez Henao MD LAB BLOOD ORDERABLES Final Result [facility] Department [place] [address] * (ABNORMAL) Differential, auto (10/20/2023 9:38 PM MATERIAL SCHEDULER) Neutrophil abs 5.9 1.5 - 6.5 K/cumm [facility] Imm gran abs 0.2(H) 0.0 - 0.1 K/cumm [facility] Lymphocyte abs 1.1 0.8 - 3.3 K/cumm [facility] Monocyte abs 1.1(H) 0.2 - 0.8 K/cumm [facility] Eosinophil abs 0.2 0.0 - 0.5 K/cumm [facility] Basophil abs 0.1 0.0 - 0.1 K/cumm [facility] Neutrophil pct 69.2 % [facility] [...] revised on 2018. Blood 10/20/2023 9:38 PM MATERIAL SCHEDULER 10/20/2023 10:25 PM MATERIAL SCHEDULER us Jimenez Henao MD LAB BLOOD ORDERABLES Final Result [facility] Department [place] [address] * (ABNORMAL) CBC with auto differential (10/20/2023 9:38 PM MATERIAL SCHEDULER) [facility] WBC 8.5 3.8 - 9.9 [...] [facility] Blood 10/20/2023 9:38 PM MATERIAL SCHEDULER 10/20/2023 10:25 PM MATERIAL SCHEDULER us Tia Nolan EQUIPMENT STERILIZER LAB BLOOD ORDERABLES F inal Result [facility] Department [place] [address] * (ABNORMAL) Basic metabolic panel (10/20/2023 9:38 PM MATERIAL SCHEDULER) Sodium 134(L) 135 - 145 mmol/L [facility] Blood 10/20/2023 9:38 PM MATERIAL SCHEDULER 10/20/2023 10:25 PM MATERIAL SCHEDULER Tia Nolan EQUIPMENT STERILIZER LAB BLOOD ORDERABLES F inal Result [facility] [place] [address] * eGFR (10/19/2023 9:11 PM MATERIAL SCHEDULER) eGFR 81 >=60 mL/min/1. 73 m2 [facility] [...] last reviewed 2021. Blood 10/19/2023 9:11 PM MATERIAL SCHEDULER 10/19/2023 11:30 PM MATERIAL SCHEDULER us Jimenez Henao MD LAB BLOOD ORDERABLES Final Result [facility] Department [place] [address] * (ABNORMAL) Differential, auto (10/19/2023 9:11 PM MATERIAL SCHEDULER) Neutrophil abs 8.2(H) 1.5 - 6.5 K/cumm [facility] Imm gran abs 0.2(H) 0.0 - 0.1 K/cumm [facility] Lymphocyte abs 0.9 0.8 - 3.3 K/cumm [facility] Monocyte abs 0.8 0.2 - 0.8 K/cumm [facility] Eosinophil abs 0.2 0.0 - 0.5 K/cumm [facility] Basophil abs 0.1 0.0 - 0.1 K/cumm [facility] Neutrophil pct 79.6 % [facility] Comment: Interpretive Data Percent cell count reference ranges are not reported, since discordance with absolute values may lead to misinterpretation of CBC data. Current Interpretive Data was last revised on 2018. Imm gran pct 2.0 % [facility] Comment: Interpretive Data Percent cell count reference ranges are not reported, since discordance with absolute values may lead to misinterpretation of CBC data. Current Interpretive Data was last revised on 2018. Lymphocyte pct 8.3 % [facility] Comment: Interpretive Data Percent cell count reference ranges are not reported, since discordance with absolute values may lead to misinterpretation of CBC data. Current Interpretive Data was last revised on 2018. Monocyte pct 8.0 % [facility] Comment: Interpretive Data Percent cell count reference ranges are not reported, since discordance with absolute values may lead to misinterpretation of CBC data. Current Interpretive Data was last revised on 2018. Eosinophil pct 1.6 % [facility] Comment: Interpretive Data Percent cell count reference ranges are not reported, since discordance with absolute values may lead to misinterpretation of CBC data. Current Interpretive Data was last revised on 2018. Basophil pct 0.5 % [facility] Comment: Interpretive Data Percent cell count reference ranges are not reported, since discordance with absolute values may lead to misinterpretation of CBC data. Current Interpretive Data was last revised on 2018. Blood 10/19/2023 9:11 PM MATERIAL SCHEDULER 10/19/2023 11:31 PM MATERIAL SCHEDULER Jimenez Henao MD LAB BLOOD ORDERABLES Final Result [facility] One [facility] [place] [address] * (ABNORMAL) CBC with auto differential (10/19/2023 9:11 PM MATERIAL SCHEDULER) [facility] WBC 10.3(H) 3.8 - 9.9 K/cumm [facility] Blood 10/19/2023 9:11 PM MATERIAL SCHEDULER 10/19/2023 11:31 PM MATERIAL SCHEDULER Tia Nolan NP LAB BLOOD ORDERABLES F inal Result [facility] One [facility] [place] [address] * Basic metabolic panel (10/19/2023 9:11 PM MATERIAL SCHEDULER) Sodium 135 135 - 145 mmol/L [facility] [...] [facility] Blood 10/19/2023 9:11 PM MATERIAL SCHEDULER 10/19/2023 11:30 PM MATERIAL SCHEDULER Tia Nolan NP LAB BLOOD ORDERABLES F inal Result Performing Organization Address City/[facility]/ZIP Co de Phone Number LAURA [facility] [place] [address] * eGFR (10/18/2023 9:29 PM MATERIAL SCHEDULER) eGFR 87 >=60 mL/min/1. 73 m2 [facility] [...] last reviewed 2021. Blood 10/18/2023 9:29 PM MATERIAL SCHEDULER 10/18/2023 10:27 PM MATERIAL SCHEDULER Jimenez Henao MD LAB BLOOD ORDERABLES Final Result Performing Organization Address City/[facility]/ZIP Co de Phone Number [facility]URA [facility] [place] [address] * (ABNORMAL) Differential, auto (10/18/2023 9:29 PM MATERIAL SCHEDULER) Neutrophil abs 13.6(H) 1.5 - 6.5 K/cumm [facility] Imm gran abs 0.2(H) 0.0 - 0.1 K/cumm [facility] Lymphocyte abs 1.4 0.8 - 3.3 K/cumm [facility] Monocyte abs 1.0(H) 0.2 - 0.8 K/cumm [facility] Eosinophil abs 0.2 0.0 - 0.5 K/cumm [facility] Basophil abs 0.0 0.0 - 0.1 K/cumm [facility] Neutrophil pct 82.8 % [facility] Comment: Interpretive Data [...] revised on 2018. Lymphocyte pct 8.4 % [facility] Comment: Interpretive Data Percent cell count reference ranges are not reported, since discordance with absolute values may lead to misinterpretation of CBC data. Current Interpretive Data was last revised on 2018. Monocyte pct 6.1 % [facility] Comment: Interpretive Data [...] revised on 2018. Blood 10/18/2023 9:29 PM MATERIAL SCHEDULER 10/18/2023 10:27 PM MATERIAL SCHEDULER Jimenez Henao MD LAB BLOOD ORDERABLES Final Result [facility] One [facility] Department [place] [address] * (ABNORMAL) CBC with auto differential (10/18/2023 9:29 PM MATERIAL SCHEDULER) WBC 16.4(H) 3.8 - 9.9 K/cumm [facility] Hgb 11.3(L) 13.0 - 17.5 g/dL [facility] Comment: Interpretive Data A reference range for this assay has not been established for patients with an unknown legal sex. Please refer to the laboratory test catalog for established sex-specific reference intervals. Current interpretive data was last revised on 2023. Hct 32.8(L) 38.9 - 50.3 % [facility] [...] [facility] Blood 10/18/2023 9:29 PM MATERIAL SCHEDULER 10/18/2023 10:27 PM MATERIAL SCHEDULER Tia Nolan EQUIPMENT STERILIZER LAB BLOOD ORDERABLES F inal Result Performing Organization Address City/[facility]/ZIP Co de Phone Number [facility] [place] [address] * (ABNORMAL) Basic metabolic panel (10/18/2023 9:29 PM MATERIAL SCHEDULER) [facility] Sodium 132(L) 135 - 145 mmol/L [facility] [...] - 10.3 mg/dL [facility] Blood 10/18/2023 9:29 PM MATERIAL SCHEDULER 10/18/2023 10:27 PM MATERIAL SCHEDULER Tia Nolan NP LAB BLOOD ORDERABLES F inal Result Performing Organization Address [facility]/ZIP Co de Phone Number [facility] Department [place] [address] * Dexa Axial Skeleton Bone Density 1 or 2 Site (10/18/2023 12:45 PM MATERIAL SCHEDULER) Anatomical Region Laterality Modality Body N/A Digital Radiogra phy 10/18/2023 1:29 PM MATERIAL SCHEDULER Impressions 10/18/2023 2:27 PM MATERIAL SCHEDULER ?? 1. The bone mineral density of [...] Bella MD, Ph.D Narrative 10/18/2023 2:27 PM MATERIAL SCHEDULER BONE DENSITOMETRY OF THE SPINE AND HIP [...] -0.6 ? -0.4 ? Procedure Note Nikki Preez MD PhD - 10/18/2023 BONE DENSITOMETRY OF [...] Fluoroscopy < 1 Hour (10/18/2023 11:27 AM MATERIAL SCHEDULER) Narrative [facility] - 10/18/2023 11:27 AM MATERIAL SCHEDULER The images from this study are not interpreted by Radiology. ??Please refer to the physician's procedure / OR operative note. Gabriel Bennett MD IMG FLUOROSCOPY PROCEDURES Fide l Result [facility] * eGFR (10/17/2023 10:52 PM MATERIAL SCHEDULER) eGFR 83 >=60 mL/min/1. 73 m2 [facility] reviewed 2021. Blood 10/17/2023 10:5 2 PM MATERIAL SCHEDULER 10/17/2023 11:04 PM MATERIAL SCHEDULER us Jimenez Henao MD LAB BLOOD ORDERABLES Final Result Performing Organization Address City/State/[facility] Co de Phone Number [facility] One [facility] [place] [address] * (ABNORMAL) Differential, auto (10/17/2023 10:52 PM MATERIAL SCHEDULER) Neutrophil abs 9.0(H) 1.5 - 6.5 K/cumm [facility] Imm gran abs 0.2(H) 0.0 - 0.1 K/cumm [facility] Lymphocyte abs 1.4 0.8 - 3.3 K/cumm [facility] Monocyte abs 0.8 0.2 - 0.8 K/cumm [facility] Eosinophil abs 0.2 0.0 - 0.5 K/cumm [facility] Basophil abs 0.1 0.0 - 0.1 K/cumm [facility] Neutrophil pct 77.7 % [facility] Comment: Interpretive Data Percent cell count reference ranges are not reported, since discordance with absolute values may lead to misinterpretation of CBC data. Current Interpretive Data was last revised on 2018. Imm gran pct 1.7 % [facility] Comment: Interpretive Data Percent cell count reference ranges are not reported, since discordance with absolute values may lead to misinterpretation of CBC data. Current Interpretive Data was last revised on 2018. Lymphocyte pct 11.7 % [facility] Comment: Interpretive Data Percent cell count reference ranges are not reported, since discordance with absolute values may lead to misinterpretation of CBC data. Current Interpretive Data was last revised on 2018. Monocyte pct 6.8 % [facility] Comment: Interpretive Data Percent cell count reference ranges are not reported, since discordance with absolute values may lead to misinterpretation of CBC data. Current Interpretive Data was last revised on 2018. Eosinophil pct 1.7 % [facility] Comment: Interpretive Data Percent cell count reference ranges are not reported, since discordance with absolute values may lead to misinterpretation of CBC data. Current Interpretive Data was last revised on 2018. Basophil pct 0.4 % [facility] Comment: Interpretive Data Percent cell count reference ranges are not reported, since discordance with absolute values may lead to misinterpretation of CBC data. Current Interpretive Data was last revised on 2018. Blood 10/17/2023 10:5 2 PM MATERIAL SCHEDULER 10/17/2023 11:04 PM MATERIAL SCHEDULER Jimenez Henao MD LAB BLOOD ORDERABLES Final Result [facility] [place] [address] * aPTT (10/17/2023 10:52 PM MATERIAL SCHEDULER) aPTT 32 28 - 38 sec [facility] Comment: Interpretive Data Heparin therapeutic range: 66.0 - 100.0 seconds. Range based on correlation with therapeutic heparin activity range of 0.3 - 0.7 Units/mL. Current interpretive data was last revised on 2023. Blood 10/17/2023 10:5 2 PM MATERIAL SCHEDULER 10/17/2023 11:07 PM MATERIAL SCHEDULER us Jimenez Henao MD LAB BLOOD ORDERABLES Final Result [facility] One [facility] [place] [address] * Protime-INR (10/17/2023 10:52 PM MATERIAL SCHEDULER) Pathologist [facility] PT 12.6 10.3 - 13.7 sec [facility] INR 1.11 0.90 - 1.20 [facility] Comment: Interpretive data Oral anticoagulant therapeutic ranges: Venous thromboembolism prophylaxis or treatment: 2.0-3.0 CARDIOLOGY Standard range: 2.0-3.0 High-intensity range: 2.5-3.5 Refer to indication-specific guidelines for appropriate target ranges for prosthetic heart valve replacement. Current interpretive data was last revised on 2019. Blood 10/17/2023 10:5 2 PM MATERIAL SCHEDULER 10/17/2023 11:07 PM MATERIAL SCHEDULER Jimenez Henao MD LAB BLOOD ORDERABLES Final Result Performing Organization Address [facility] de Phone Number [facility] One [facility] [place] [address] * (ABNORMAL) CBC with auto differential (10/17/2023 10:52 PM MATERIAL SCHEDULER) Pathologist [facility] WBC 11.6(H) 3.8 - 9.9 K/cumm [facility] Blood 10/17/2023 10:5 2 PM MATERIAL SCHEDULER 10/17/2023 11:04 PM MATERIAL SCHEDULER Tia Nolan EQUIPMENT STERILIZER LAB BLOOD ORDERABLES F inal Result [facility] [place] [address] * (ABNORMAL) Basic metabolic panel (10/17/2023 10:52 PM MATERIAL SCHEDULER) Sodium 133(L) 135 - 145 mmol/L [facility] [...] 2022. Calcium 8.4(L) 8.5 - 10.3 mg/dL [facility] Blood 10/17/2023 10:5 2 PM MATERIAL SCHEDULER 10/17/2023 11:04 PM MATERIAL SCHEDULER us Tia Nolan EQUIPMENT STERILIZER LAB BLOOD ORDERABLES F inal Result [facility] [place] [address] * CT Urogram WO 3D (10/16/2023 12:36 PM MATERIAL SCHEDULER) Anatomical Region Laterality Modality Body N/A Computed Tomogra phy 10/16/2023 1:29 PM MATERIAL SCHEDULER Impressions 10/16/2023 1:59 PM MATERIAL SCHEDULER 1. ??Postprocedural changes of percutaneous nephrostomy tube [...] Eric Irene M.D. Narrative 10/16/2023 1:59 PM MATERIAL SCHEDULER EXAMINATION: CT UROGRAPHY WITH AND WITHOUT CONTRAST [...] IR Percutaneous Nephrostomy Left (10/14/2023 1:38 PM MATERIAL SCHEDULER) Anatomical Region Laterality Modality Body Left X-Ray Angiograph y 10/14/2023 3:34 PM MATERIAL SCHEDULER Impressions 10/14/2023 7:38 PM MATERIAL SCHEDULER Successful left percutaneous nephrostomy. Impacted stone in [...] Kendrick Hughes M.D. Narrative 10/14/2023 7:38 PM MATERIAL SCHEDULER EXAMINATION: IR PERCUTANEOUS NEPHROSTOMY LEFT HISTORY/INDICATION: ??73-year-old [...] was obtained. Prior to beginning the procedure, [place] Protocol was performed to confirm the patient's [...] was dilated before placing a 10 Fr [place] catheter. ??The retaining loop was formed and [...] was obtained. Prior to beginning the procedure, [place] Protocol was performed to confirm the patient's [...] was dilated before placing a 10 Fr [place] catheter. The retaining loop was formed and [...] (ABNORMAL) Urinalysis, microscopic only (10/14/2023 1:35 PM MATERIAL SCHEDULER) WBC, ur 0-5 0 - 5 /HPF [facility] RBC, ur >50(A) 0 - 2 /HPF [facility] Epithelial cells, squamous, ur 1-5 0 - 5 /HPF [facility] Bacteria, ur Trace(A) [facility] Mucous, ur Present(A) [facility] Urine 10/14/2023 1:35 PM MATERIAL SCHEDULER 10/14/2023 3:26 PM MATERIAL SCHEDULER us Marquise Lim MD LAB URINE ORDERABLES Final Result Performing Organization Address City/[facility]/ZIP Co [place] Number [place] [address] * Urine culture Urine, kidney aspirate Left (10/14/2023 1:35 PM MATERIAL SCHEDULER) Report Final Report: No growth [facility] Urine, kidney aspirate (Left) 10/14/2023 1:35 PM MATERIAL SCHEDULER 10/14/2023 3:52 PM MATERIAL SCHEDULER Narrative [facility] - 10/16/2023 4:49 PM MATERIAL SCHEDULER Testing performed by [facility] Microbiology Laboratory ([phone]) Marquise Lim MD LAB MICROBIOLOGY - GENERAL ORDERABLES Final Result Performing Organization Address [facility] Co de Phone Number [facility] [place] [address] * (ABNORMAL) Urinalysis reflex to microscopic and culture Urine (10/14/2023 1:35 PM MATERIAL SCHEDULER) Color, ur Red(A) Yellow [facility] Clarity, ur Cloudy(A) Clear [facility] Specific gravity, ur 1.015 1.003 - 1.030 [facility] pH, [...] tendency for uric acid stone formation. Source: [facility] [employer] Current Interpretive Data was last revised on 2017 Protein, ur ql 1+(A) Negative [facility] Glucose, ur ql Negative Negative [facility] Ketones, ur Negative Negative [facility] Bilirubin, ur 1+(A) Negative [facility] Blood, ur 4+(A) Negative [facility] Urobilinogen, ur 0.2 <2.0 mg/dL [facility] Nitrite, ur Negative Negative [facility] Leukocyte esterase, ur 2+(A) Negative [facility] UA reflex comment Reflex to microscopic UA will be performed. [facility] Urine 10/14/2023 1:35 PM MATERIAL SCHEDULER 10/14/2023 3:26 PM MATERIAL SCHEDULER us Marquise Lim MD LAB MICROBIOLOGY - GENERAL ORDERABLES Final Result [facility] One [facility] [place] [address] * US Kidney Complete (10/14/2023 7:15 AM MATERIAL SCHEDULER) Anatomical Region Laterality Modality Kidney N/A Ultrasound 10/14/2023 6:15 PM MATERIAL SCHEDULER Impressions 10/14/2023 6:15 PM MATERIAL SCHEDULER 1. ??No hydronephrosis. ??Given patient had obstructive [...] Robert Yeboah M.D. Narrative 10/14/2023 6:15 PM MATERIAL SCHEDULER EXAMINATION: COMPLETE RENAL SONOGRAM HISTORY: ??Obstructive left [...] urogram in 48-72 hours. Electronically signed by: Robret Yeboah M.D. us Marquise Lim MD [facility] PROCEDURES Final Res ult * eGFR (10/14/2023 6:30 AM MATERIAL SCHEDULER) eGFR 64 >=60 mL/min/1. 73 m2 [facility]URA [...] last reviewed 2021. Blood 10/14/2023 6:30 AM MATERIAL SCHEDULER 10/14/2023 7:44 AM MATERIAL SCHEDULER us Marquise Lim MD LAB BLOOD ORDERABLES Final Result [facility] One [facility] Department [place] [address] * (ABNORMAL) Differential, auto (10/14/2023 6:30 AM MATERIAL SCHEDULER) Neutrophil abs 7.4(H) 1.5 - 6.5 K/cumm [facility] Imm gran abs 0.1 0.0 - 0.1 K/cumm [facility] Lymphocyte abs 0.6(L) 0.8 - 3.3 K/cumm [facility] Monocyte abs 1.3(H) 0.2 - 0.8 K/cumm [facility] Eosinophil abs 0.1 0.0 - 0.5 K/cumm [facility] Basophil abs 0.0 0.0 - 0.1 K/cumm [facility] Neutrophil pct 79.0 % [facility] [...] on 2018. Lymphocyte pct 6.3 % [facility] Comment: Interpretive Data Percent cell count reference ranges are not reported, since discordance with absolute values may lead to misinterpretation of CBC data. Current Interpretive Data was last revised on 2018. Monocyte pct 13.3 % [facility] Comment: Interpretive [...] revised on 2018. Blood 10/14/2023 6:30 AM MATERIAL SCHEDULER 10/14/2023 7:20 AM MATERIAL SCHEDULER us Marquise Lim MD LAB BLOOD ORDERABLES Final Result [facility] One [facility] Department [place] [address] * (ABNORMAL) Comprehensive metabolic panel (10/14/2023 6:30 AM MATERIAL SCHEDULER) Sodium 136 135 - 145 mmol/L [facility] Potassium, pl 3.4 3.3 - 4.9 mmol/L [facility] Chloride 101 97 - 110 mmol/L [facility] CO2 24 22 - 32 mmol/L [facility] Anion gap 11 2 - 15 mmol/L [facility] BUN 24 6 - 25 mg/dL [facility] Creatinine 1.20 0.80 - 1.30 mg/dL [facility] Glucose 153 70 - 199 mg/dL [...] [facility] Blood 10/14/2023 6:30 AM MATERIAL SCHEDULER 10/14/2023 7:20 AM MATERIAL SCHEDULER us Marquise Lim MD LAB BLOOD ORDERABLES Final Result [facility] One [facility] Department [place] [address] * (ABNORMAL) CBC with auto differential (10/14/2023 6:30 AM MATERIAL SCHEDULER) [facility] WBC 9.4 3.8 - 9.9 [...] [facility] Blood 10/14/2023 6:30 AM MATERIAL SCHEDULER 10/14/2023 7:20 AM MATERIAL SCHEDULER Marquise Lim MD LAB BLOOD ORDERABLES Final Result [facility] One [facility] [place] [address] * Blood culture Blood (10/13/2023 10:59 PM MATERIAL SCHEDULER) Report Final Report: No growth [facility] Blood 10/13/2023 10:5 9 PM MATERIAL SCHEDULER 10/14/2023 12:27 AM MATERIAL SCHEDULER Narrative [facility] - 10/18/2023 7:00 AM MATERIAL SCHEDULER Collection->Peripheral 1. ?Blood cultures are incubated for [...] organism identification may be performed using the [employer] Gram-Positive Blood Culture Assay. This assay detects microbial DNA in positive blood culture broth via hybridization of target DNA to capture oligonucleotides on a microarray. This assay has been cleared by the [place] Food and Drug Administration and its performance characteristics have been verified by the [facility] Microbiology Laboratory. 5. ?For questions about this culture, contact the Microbiology Laboratory at [phone]. Interpretive data was last revised on 2020. Marquise Lim MD LAB MICROBIOLOGY - GENERAL ORDERABLES Final Result [facility] Department [place] [address] * Blood culture Blood (10/13/2023 11:01 AM MATERIAL SCHEDULER) Report Final Report: No growth [facility] Blood 10/13/2023 11:0 1 AM MATERIAL SCHEDULER 10/13/2023 12:16 PM MATERIAL SCHEDULER Narrative [facility] - 10/18/2023 8:10 AM MATERIAL SCHEDULER 1. ?Blood cultures are incubated for 4 [...] performance characteristics have been verified by the [facility] Microbiology Laboratory. 5. ?For questions about this culture, contact the Microbiology Laboratory at [phone]. Interpretive data was last revised on 2020. Marquise Lim MD LAB MICROBIOLOGY - GENERAL ORDERABLES Final Result [facility] Department [place] [address] * FL Fluoroscopy < 1 Hour (10/13/2023 9:48 AM MATERIAL SCHEDULER) Anatomical Region Laterality Modality Body N/A X-Ray Angiograph y 10/13/2023 7:06 PM MATERIAL SCHEDULER Impressions 10/14/2023 1:30 PM MATERIAL SCHEDULER Unsuccessful attempt at left nephrostomy placement in this patient with a nondilated system. Dictated by: Ana Alfaro M.D. The radiology attending physician has personally reviewed this study, and had reviewed and/or edited this written report and agrees with it. Electronically signed by: Rg Mar M.D. Narrative 10/14/2023 1:30 PM MATERIAL SCHEDULER EXAMINATION: FL FLUOROSCOPY < 1 HOUR HISTORY/INDICATION: [...] was obtained. Prior to beginning the procedure, [place] Protocol was performed to confirm the patient's [...] was obtained. Prior to beginning the procedure, [place] Protocol was performed to confirm the patient's [...] inal Result * eGFR (10/13/2023 6:50 AM MATERIAL SCHEDULER) [facility] eGFR >90 >=60 mL/min/1. 73 m2 [facility] [...] last reviewed 2021. Blood 10/13/2023 6:50 AM MATERIAL SCHEDULER 10/13/2023 7:55 AM MATERIAL SCHEDULER us Severo Merlos MD LAB BLOOD ORDERABLES Final R esult [facility] One [facility] [place] [address] * (ABNORMAL) Differential, auto (10/13/2023 6:50 AM MATERIAL SCHEDULER) Pathologist [facility] Neutrophil abs 5.8 1.5 - 6.5 K/cumm [facility] Imm gran abs 0.0 0.0 - 0.1 K/cumm [facility] Lymphocyte abs 0.2(L) 0.8 - 3.3 K/cumm [facility] Monocyte abs 0.2 0.2 - 0.8 K/cumm [facility] Eosinophil abs 0.0 0.0 - 0.5 [...] revised on 2018. Blood 10/13/2023 6:50 AM MATERIAL SCHEDULER 10/13/2023 7:55 AM MATERIAL SCHEDULER us Severo Merlos MD LAB BLOOD ORDERABLES Final R esult [facility] One [facility] Department [place] [address] * (ABNORMAL) CBC with auto differential (10/13/2023 6:50 AM MATERIAL SCHEDULER) [facility] WBC 6.2 3.8 - 9.9 K/cumm [facility] Hgb 13.3 13.0 - 17.5 g/dL [facility] [...] [facility] Blood 10/13/2023 6:50 AM MATERIAL SCHEDULER 10/13/2023 7:55 AM MATERIAL SCHEDULER us Severo Merlos MD LAB BLOOD ORDERABLES Final R esult [facility] One [facility] Department [place] [address] * (ABNORMAL) Comprehensive metabolic panel (10/13/2023 6:50 AM MATERIAL SCHEDULER) Sodium 137 135 - 145 mmol/L [facility] [...] 10.3 mg/dL [facility] Bilirubin, total 0.7 0.1 - 1.2 mg/dL [facility] Protein, pl 6.8 6.5 - 8.5 g/dL [facility] Albumin 3.6 3.5 - 5.0 g/dL [facility] Alk phos 113 40 - 130 Units/L [facility] ALT 68(H) 7 - 55 Units/L [facility] Comment:Reviewed AST 50 10 - 50 Units/L [facility] Blood 10/13/2023 6:50 AM MATERIAL SCHEDULER 10/13/2023 7:55 AM MATERIAL SCHEDULER us Severo Merlos MD LAB BLOOD ORDERABLES Final R esult [facility] One [facility] [place] [address] * [place] Fluoroscopy < 1 Hour (10/13/2023 3:00 AM MATERIAL SCHEDULER) Narrative [facility] - 10/13/2023 10:04 AM MATERIAL SCHEDULER The images from this study are not interpreted by Radiology. ??Please refer to the physician's procedure / OR operative note. Severo Merlos MD IM FLUOROSCOPY PROCEDURES F inal Result [facility] * MRI Spine Total Complete W WO Contrast (10/12/2023 11:44 PM MATERIAL SCHEDULER) Anatomical Region Laterality Modality Spine N/A Magnetic Resonan ce 10/13/2023 12:4 6 AM MATERIAL SCHEDULER Impressions 10/13/2023 11:39 AM MATERIAL SCHEDULER 1. ??Redemonstrated degenerative disc disease of the [...] Kym Buckley M.D. Narrative 10/13/2023 11:39 AM MATERIAL SCHEDULER EXAMINATION: 1. Magnetic resonance imaging (MRI) of [...] by: Kym Buckley M.D. Amol Hargrove MD [facility] MRI PROCEDURES Fi nal Result * Blood culture Blood (10/12/2023 9:38 PM MATERIAL SCHEDULER) Report Final Report: No growth [facility] Blood 10/12/2023 9:38 PM MATERIAL SCHEDULER 10/12/2023 9:59 PM MATERIAL SCHEDULER Narrative [facility] - 10/17/2023 7:00 AM MATERIAL SCHEDULER Second site Collection->Peripheral 1. ?Blood cultures are [...] organism identification may be performed using the [employer] Gram-Positive Blood Culture Assay. This assay detects microbial DNA in positive blood culture broth via hybridization of target DNA to capture oligonucleotides on a microarray. This assay has been cleared by the [place] Food and Drug Administration and its performance characteristics have been verified by the [facility] Microbiology Laboratory. 5. ?For questions about this culture, contact the Microbiology Laboratory at [phone]. Interpretive data was last revised on 2020. Amol Hargrove MD [facility] Final Result [facility] [place] [address] * CT Chest Abdomen Pelvis W Contrast (10/12/2023 9:00 PM MATERIAL SCHEDULER) Anatomical Region Laterality Modality Body N/A Computed Tomogra phy 10/12/2023 9:35 PM MATERIAL SCHEDULER Impressions 10/13/2023 10:26 AM MATERIAL SCHEDULER 1. ??Obstructing renal calculus in unchanged position [...] Mich Cabrera M.D. Narrative 10/13/2023 10:26 AM MATERIAL SCHEDULER EXAMINATION: CT CHEST ABDOMEN PELVIS W CONTRAST [...] (ABNORMAL) Erythrocyte sedimentation rate (10/12/2023 7:50 PM MATERIAL SCHEDULER) [facility] Erythrocyte sedimentation rate 48(H) 1 - 20 mm/hr [facility] Blood 10/12/2023 7:50 PM MATERIAL SCHEDULER 10/12/2023 8:11 PM MATERIAL SCHEDULER Result [facility] Rafael Cowan MD LAB BLOOD ORDERABLES Fin al Result Performing Organization Address [facility] Co de Phone Number [facility] Department [place] [place] [address] * (ABNORMAL) CRP (acute phase) (10/12/2023 7:50 PM MATERIAL SCHEDULER) [facility] CRP 210.7(H) <=10.0 mg/L [facility] Blood 10/12/2023 7:50 PM MATERIAL SCHEDULER 10/12/2023 8:11 PM MATERIAL SCHEDULER Result [facility] Rafael Cowan MD LAB BLOOD ORDERABLES Fin al Result Performing Organization Address [facility] de Phone Number [facility] [place] [employer] [place] [address] * eGFR (10/12/2023 7:50 PM MATERIAL SCHEDULER) Pathologist [facility] eGFR 81 >=60 mL/min/1. 73 m2 [facility] [...] last reviewed 2021. Blood 10/12/2023 7:50 PM MATERIAL SCHEDULER 10/12/2023 8:23 PM MATERIAL SCHEDULER us Rafael Cowan MD LAB BLOOD ORDERABLES Fin al Result [facility] [place] [address] * (ABNORMAL) Urine culture Urine (10/12/2023 7:50 PM MATERIAL SCHEDULER) Report Final Report: Greater than or equal to 100,000 colonies/mL of Escherichia coli Greater than or equal to 100,000 colonies/mL of Escherichia coli #2 For susceptibility results, refer to accession number [id number] on the urine culture from 10/11/23 (.) [facility] Organism ESCHERICHIA COLI [facility] Organism [facility]ICHIA [facility]I [facility] Urine 10/12/2023 7:50 PM MATERIAL SCHEDULER 10/12/2023 9:46 PM MATERIAL SCHEDULER Narrative [facility] - 10/14/2023 9:24 AM MATERIAL SCHEDULER Urine culture reflexed based upon urinalysis results. Testing performed by [facility] Microbiology Laboratory ([phone]) Rafael Cowan MD LAB MICROBIOLOGY - GENER AL ORDERABLES Final Result Performing Organization Address City/[facility] Co de Phone Number [facility] [place] [place] [address] * (ABNORMAL) Urinalysis, microscopic only (10/12/2023 7:50 PM MATERIAL SCHEDULER) WBC, ur >50(A) 0 - 5 /HPF [facility] RBC, ur 6-10(A) 0 - 2 /HPF [facility] Bacteria, ur 3+(A) [facility] Culture Reflex Comment Reflex to urine culture will be performed. [facility] Urine 10/12/2023 7:50 PM MATERIAL SCHEDULER 10/12/2023 8:11 PM MATERIAL SCHEDULER us Rafael Cowan MD LAB URINE ORDERABLES Fin al Result Performing Organization Address [facility] de Phone Number [facility] Department [place] [address] * (ABNORMAL) Differential, auto (10/12/2023 7:50 PM MATERIAL SCHEDULER) Neutrophil abs 6.4 1.5 - 6.5 K/cumm [facility] Imm gran abs 0.0 0.0 - 0.1 K/cumm [facility] Lymphocyte abs 0.7(L) 0.8 - 3.3 K/cumm [facility] Monocyte abs 0.9(H) 0.2 - 0.8 K/cumm [facility] Eosinophil abs 0.0 0.0 - 0.5 K/cumm [facility] Basophil abs 0.0 0.0 - 0.1 K/cumm [facility] Neutrophil pct 79.1 % [facility] Comment: Interpretive Data [...] on 2018. Lymphocyte pct 8.4 % [facility] Comment: Interpretive Data Percent cell count reference ranges are not reported, since discordance with absolute values may lead to misinterpretation of CBC data. Current Interpretive Data was last revised on 2018. Monocyte pct 11.4 % [facility] Comment: Interpretive Data Percent cell count reference ranges are not reported, since discordance with absolute values may lead to misinterpretation of CBC data. Current Interpretive Data was last revised on 2018. Eosinophil pct 0.4 % [facility] Comment: Interpretive Data Percent cell count reference ranges are not reported, since discordance with absolute values may lead to misinterpretation of CBC data. Current Interpretive Data was last revised on 2018. Basophil pct 0.2 % [facility] Comment: Interpretive Data Percent cell count reference ranges are not reported, since discordance with absolute values may lead to misinterpretation of CBC data. Current Interpretive Data was last revised on 2018. Blood 10/12/2023 7:50 PM MATERIAL SCHEDULER 10/12/2023 8:11 PM MATERIAL SCHEDULER Rafael Cowan MD LAB BLOOD ORDERABLES Fin al Result [facility] Department [place] [address] * Blood culture Blood (10/12/2023 7:50 PM MATERIAL SCHEDULER) Report Final Report: No growth [facility] Blood 10/12/2023 7:50 PM MATERIAL SCHEDULER 10/12/2023 8:32 PM MATERIAL SCHEDULER Narrative [facility]URA ZARAGO[facility] - 10/17/2023 7:00 AM MATERIAL SCHEDULER Collection->Peripheral 1. ?Blood cultures are incubated for [...] organism identification may be performed using the [employer] Gram-Positive Blood Culture Assay. This assay detects microbial DNA in positive blood culture broth via hybridization of target DNA to capture oligonucleotides on a microarray. This assay has been cleared by the [place] Food and Drug Administration and its performance characteristics have been verified by the [facility] Microbiology Laboratory. 5. ?For questions about this culture, contact the Microbiology Laboratory at [phone]. Interpretive data was last revised on 2020. Amol Hargrove MD LAB MICROBIOLOGY - NERKS ORDERABLES Final Result Performing Organization Address City/[facility]/ZIP Co de Phone Number [facility] Department [place] [address] * Lactate (10/12/2023 7:50 PM MATERIAL SCHEDULER) [facility] Lactate 1.1 0.7 - 2.0 mmol/L [facility] Blood 10/12/2023 7:50 PM MATERIAL SCHEDULER 10/12/2023 8:23 PM MATERIAL SCHEDULER Amol Hargrove MD LAB BLOOD ORDERABLES Final Result Performing Organization Address City/[facility]/[place] [address] * (ABNORMAL) Urinalysis reflex to microscopic and culture Urine (10/12/2023 7:50 PM MATERIAL SCHEDULER) Color, ur Camilo Yellow [facility] [...] for uric acid stone formation. Source: [facility] Current Interpretive Data was last revised on 2017 Protein, ur ql 3+(A) Negative [facility] Glucose, ur ql Negative Negative [facility] Ketones, ur Negative Negative [facility] Bilirubin, ur Negative Negative [facility] Blood, ur 2+(A) Negative [facility] Urobilinogen, ur >=8.0(A) <2.0 mg/dL [facility] Nitrite, ur Negative Negative [facility] Leukocyte esterase, ur 3+(A) Negative [facility] UA reflex comment Reflex to microscopic UA will be performed. [facility] Urine 10/12/2023 7:50 PM MATERIAL SCHEDULER 10/12/2023 8:11 PM MATERIAL SCHEDULER us Rafael Cowan MD LAB MICROBIOLOGY - GENER AL ORDERABLES Final Result [facility] Department [place] [address] * (ABNORMAL) CBC with auto differential (10/12/2023 7:50 PM MATERIAL SCHEDULER) Pathologist [facility] WBC 8.1 3.8 - 9.9 K/cumm [facility] [...] [facility] Blood 10/12/2023 7:50 PM MATERIAL SCHEDULER 10/12/2023 8:11 PM MATERIAL SCHEDULER Rafael Cowan MD LAB BLOOD ORDERABLES Fin al Result [facility] Department [place] [address] * (ABNORMAL) Basic metabolic panel (10/12/2023 7:50 PM MATERIAL SCHEDULER) Sodium 133(L) 135 - 145 mmol/L [facility] [...] 2022. Calcium 9.1 8.5 - 10.3 mg/dL [facility] Blood 10/12/2023 7:50 PM MATERIAL SCHEDULER 10/12/2023 8:11 PM MATERIAL SCHEDULER us Rafael Cowan MD LAB BLOOD ORDERABLES Fin al Result [facility] Department [place] [address] documented in this encounter Visit Diagnoses Diagnosis [...] 10/25/23 at 0806 Given 10/29/2023 4:49 AM MATERIAL SCHEDULER 5 mg Given 10/27/2023 9:14 AM MATERIAL SCHEDULER 5 mg Given 10/25/2023 2:34 PM MATERIAL SCHEDULER 5 mg dilTIAZem XR (CARDIZEM CD,DILACOR XR) 24 hour capsule 240 mg 240 mg, oral, Daily, First dose on Sun10/30/23 at 0900, Do not crush, chew, cut, dissolve, open or otherwise manipulate tablet/capsule. Given 10/30/2023 9:56 AM MATERIAL SCHEDULER 240 mg diphenhydrAMINE (BENADRYL) tab/cap 25 mg 25 mg, oral, 4 times daily PRN, itching, Starting on 10/28/23 at 0113 Given 10/28/2023 9:20 AM MATERIAL SCHEDULER 25 mg Given 10/28/2023 1:19 AM MATERIAL SCHEDULER 25 mg diphenhydrAMINE-zinc acetate 2-0.1 % cream topical, Daily PRN, itching, Starting on 10/27/23 at 0913, Apply to affected area: IV access site, Indications: Pruritus of SkinIndications:Pruritus of Skin Given 10/27/2023 9:15 PM MATERIAL SCHEDULER Given 10/27/2023 1:11 PM MATERIAL SCHEDULER enoxaparin (LOVENOX) syringe 80 mg 80 mg (rounded from 88.6 mg = 1 mg/kg ? 88.6 kg), subcutaneous, Every 12 hours scheduled, First dose (after last modification) on Sun10/26/23 at 1815, Indications: Pulmonary EmbolismIndications:Pulmonary Embolism Given 10/30/2023 9:56 AM MATERIAL SCHEDULER 80 mg Right Upper Abdomen Given 10/29/2023 9:34 PM MATERIAL SCHEDULER 80 mg Ri ght Upper Abdomen Given 10/29/2023 9:31 AM MATERIAL SCHEDULER 80 mg Le ft Upper Abdomen gabapentin (NEURONTIN) capsule 300 mg 300 mg, oral, Every 8 hours scheduled, First dose on Sun10/23/23 at 2345, Indications: PainIndications:Pain Given 10/30/2023 3:39 PM MATERIAL SCHEDULER 300 mg Given 10/30/2023 5:19 AM MATERIAL SCHEDULER 300 mg Given 10/29/2023 9:34 PM MATERIAL SCHEDULER 300 mg HYDROmorphone (DILAUDID) injection 0.5 mg 0.5 mg, intravenous, Administer over 2 Minutes, Every 2 hours PRN, 2nd line for pain, Starting on Sun10/24/23 at 2245, Indications: PainIndications:Pain Given 10/26/2023 6:35 PM MATERIAL SCHEDULER 0.5 mg Given 10/25/2023 11:36 AM MATERIAL SCHEDULER 0.5 mg Given 10/25/2023 8:41 AM MATERIAL SCHEDULER 0.5 mg iothalamate meglumine (CONRAY) 60 % injection As needed, Starting on Sun10/18/23 at 1125, Intra-Op Given 10/18/2023 11:25 AM MATERIAL SCHEDULER 15 mL irbesartan (AVAPRO) tablet 300 mg 300 mg, oral, Daily, First dose on Sun10/30/23 at 0900 Given 10/30/2023 9:56 AM MATERIAL SCHEDULER 300 mg levETIRAcetam (KEPPRA) tablet 1,000 mg 1,000 mg, oral, 2 times daily, First dose on Sun10/24/23 at 2100, May mix with 120 mL of enteral nutrition formula or disperse crushed tablets (500 mg tablet strength studied) in 10 mL of water, shake for 5 minutes to dissolve, and administer immediately via enteral feeding tube Given 10/30/2023 9:56 AM MATERIAL SCHEDULER 1,000 m g Given 10/29/2023 9:34 PM MATERIAL SCHEDULER 1,000 mg Given 10/29/2023 9:31 AM MATERIAL SCHEDULER 1,000 mg lidocaine (LIDODERM) 5 % patch 2 patch 2 patch, transdermal, Administer over 12 Hours, Daily, First dose on Sun10/24/23 at 1130, Do not cover the holes on the top side of the patch., Apply to affected area: chest Medication Applied 10/28/2023 1:26 PM MATERIAL SCHEDULER 2 patches Other (Comment) Medication Applied 10/27/2023 1:11 PM MATERIAL SCHEDULER 2 patches Back Medication Applied 10/25/2023 11:36 AM MATERIAL SCHEDULER 2 patches Back ondansetron (ZOFRAN) injection 4 [...] Gastric Disorder,home med Given 10/30/2023 9:56 AM MATERIAL SCHEDULER 40 mg Given 10/29/2023 9:31 AM MATERIAL SCHEDULER 40 mg Given 10/28/2023 9:17 AM MATERIAL SCHEDULER 40 mg polyethylene glycol (MIRALAX) packet 17 g 17 g, oral, 2 times daily, First dose (after last modification) on Sun10/26/23 at 2100, Indications: constipationIndications:constipation Given 10/28/2023 9:16 AM MATERIAL SCHEDULER 17 g Given 10/27/2023 9:13 AM MATERIAL SCHEDULER 17 g ramelteon (ROZEREM) tablet 8 mg 8 mg, oral, Nightly PRN, sleep, Starting on Sun10/28/23 at 2033, Indications: Sleep-Onset InsomniaIndications:Sleep-Onset Insomnia Given 10/29/2023 10:55 PM MATERIAL SCHEDULER 8 mg Given 10/28/2023 9:31 PM MATERIAL SCHEDULER 8 mg senna-docusate (PERICOLACE) 8.6-50 mg per tablet 2 tablet 2 tablet, oral, 2 times daily, First dose on Sun10/23/23 at 2345, Hold for diarrhea., Indications: constipationIndications:constipation Given 10/28/2023 9:16 AM MATERIAL SCHEDULER 2 table ts Given 10/27/2023 9:14 AM MATERIAL SCHEDULER 2 tablets Given 10/26/2023 9:35 AM MATERIAL SCHEDULER 2 tablets sodium chloride 0.9% flush 0.5-20 mL 0.5-20 mL, intra-catheter, Every 8 hours scheduled, First dose on Sun10/23/23 at 2345, Flush volume based on line type and size. , Indications: FlushingIndications:Flushing Given 10/30/2023 5:20 AM MATERIAL SCHEDULER 10 mL Given 10/29/2023 9:35 PM MATERIAL SCHEDULER 10 mL Given 10/29/2023 2:00 PM MATERIAL SCHEDULER 10 mL sodium chloride 0.9% flush 0.5-20 mL 0.5-20 mL, intra-catheter, Every 8 hours scheduled, First dose on Sun10/23/23 at 2330, Flush volume based on line type and size. Given 10/30/2023 5:20 AM MATERIAL SCHEDULER 10 mL Given 10/29/2023 9:35 PM MATERIAL SCHEDULER 10 mL Given 10/29/2023 2:01 PM MATERIAL SCHEDULER 10 mL sodium chloride 0.9% irrigation As needed, Starting on Helene 10/18/23 at 1125, Intra-Op Given 10/18/2023 11:25 AM MATERIAL SCHEDULER 3,000 mL tamsulosin (FLOMAX) extended release capsule 0.8 mg 0.8 mg, oral, Daily with dinner, First dose on Sun10/24/23 at 1800, Do not crush, chew, cut, dissolve, open or otherwise manipulate tablet/capsule. Given 10/29/2023 6:50 PM MATERIAL SCHEDULER 0.8 mg Given 10/28/2023 6:11 PM MATERIAL SCHEDULER 0.8 mg Given 10/27/2023 4:49 PM MATERIAL SCHEDULER 0.8 mg documented in this encounter Discontinued [...] Administered Medications Times are shown in MATERIAL SCHEDULER. Scheduled Medication Order 10/28/2023 10/29/2023 10/30/2023 acetaminophen [...] Matilda Gonzales RN)2134 (Given - Provider: Suzanne Mendzoa RN) 0519 (Given - Provider: Suzanne Mendoza [...] Porsha Lepe RN)2133 (Not Given - Provider: uSzanne Mendoza RN - Reason: Patient/family refused - [...] Matilda Gonzales RN)2135 (Given - Provider: Suzanne Mendzoa RN) 0520 (Given - Provider: Suzanne Mendoza [...] - Provider: Suzanne Mendoza RN)1355 [facility]: Matilda Gonzales RN) diphenhydrAMINE [...] Suzanne Mendoza, NARENDRA) 225 (Given - Provider: Suzanne Mendoza RN) sodium [...] [place]) enema 133 mL 1 10/23/2023 multivit yypscnli-jejd-MQ-ca lcium (THERA-M) tablet 1 tablet 1 10/23/2023 [...] 1 10/23/2023 SKIN PREP 1 10/14/2023 VOID CAKE WASHER TO OR 1 10/14/2023 ASSESS 1 10/13/2023 [...] 10/12/2023 documented in this encounter Care Teams Religion Department Chair Relationship Specialty Start Date End Date Rl Medina DO [address] [place] [address] PCP - General 08/09/17 05/25/24 documented as of this encounter
--- OUTSIDE RECORDS SUMMARY | 2024-11-05 23:03 | XMS_ITS | Encounter Summary ---
Author Organization [facility] Healthcare Address [address] [place] [address] Care Team Providers Care Sterile Products Processor Name Role Phone Rl Medina DO Primary Care Provider Reason for Visit * Auth/Cert Specialty Diagnoses / Procedures Referred By Contac t Referred To Contact Diagnoses Ureteral colic Procedures na Referral ID Status Reason Start Date Expiration Date Visits Re quested Visits Authorized [id number] 1 1 Encounter Details Date Type Department Care Team (Late st Contact Info) Description 10/18/2023 9:23 AM BUSINESS ANALYST MANAGER Anesthesia Event [facility] Operating Room [address] [place] [address] Alvaro Wilson MD [address] [place] [address] Galina Ladd NP [address] [facility] [id number] [place] [address] Anesthesia Record Procedure Summary Procedure Name Responsible [...] Daniela Kothari RN 10/18/23 0940 by Gloria Cifuentes, NARENDRA Peripheral IV Placement Date: 10/13/23; [...] file Legal Sex Male 9:07 PM BUSINESS ANALYST MANAGER Gender Identity Not on file Sexual Orientation Not on file Occupation Industry Job Start Date Job End Date [employer] Not on file Not on file Not on file documented as of this encounter OR Notes * Anesthesia Postprocedure Evaluation - Alvaro Wayne MD - 10/18/2023 1:13 PM CST Patient: Hira Evans Procedure Summary Date: 10/18/23 Room / Location: [facility] OR POD 1 ROOM [facility] / [facility] OR POD 1 Anesthesia Start: 922 Anesthesia [...] 18 SpO2 96% No notable events documented. NESS ANALYST MANAGER * Anesthesia Procedure Notes - Nolvia Multani [...] patient tolerated procedure well with no complications NESS ANALYST MANAGER * Anesthesia Procedure Notes - Nolvia Multani [...] of attempts: 1 Planned trial extubation: yes NESS ANALYST MANAGER * Anesthesia Preprocedure Evaluation - Alvaro Wayne MD - 10/11/2023 11:42 AM CST Images from the original note were not included. [facility] Planning Preoperative Evaluation Record Evaluation type/location: CPAP [facility] Planned procedure site: [facility] (Pods 2/3/5/CHARGE HAND) Date: 10/11/23 Anesthesia Evaluation Hira Evans is [...] BP - 80 Pertinent negatives: CAD ; DE ; CABG ; valvular heart disease; valve [...] E. coli. The patient is inpatient at [address] Vu examined and spoke to [...] Medication protocol when under care of a IRONING WORKER Planned anesthesia: General Team communication plan: LMA [...] and agree to proceed. All questions answered. NESS ANALYST MANAGER NESS ANALYST MANAGER NESS ANALYST MANAGER NESS ANALYST MANAGER NESS ANALYST MANAGER documented in this encounter Plan of Treatment Not on file documented as of this encounter Procedures Procedure Name Priority Date/Time Associated Diagnosis Comments PERIPHERAL LINE Routine 10/18/2023 9:51 AM BUSINESS ANALYST MANAGER ANESTHESIA INTUBATION Routine 10/18/2023 9:50 AM BUSINESS ANALYST MANAGER documented in this encounter Results * Peripheral IV Catheter (10/18/2023 9:51 AM BUSINESS ANALYST MANAGER) Narrative Nolvia Multani MD - 10/18/2023 9:51 AM BUSINESS ANALYST MANAGER Nolvia Multani MD ? 10/18/2023 ??9:51 AM [...] Final Result * Airway (10/18/2023 9:50 AM BUSINESS ANALYST MANAGER) Narrative Nolvia Multani MD - 10/18/2023 9:50 AM BUSINESS ANALYST MANAGER Nolvia Multani MD ? 10/18/2023 ??9:51 AM [...] attempts: 1 Planned trial extubation: yes Alvaro aWyne MD ANESTHESIA ORDERAB LES Final Result documented in this encounter Visit Diagnoses Not on filedocumented in this encounter Administered Medications Inactive Administered Medications - up to 3 most recent administrations Medication Order MAR Action Action Date Dose Rate Site cefTRIAXone (ROCEPHIN) injection intravenous, As needed, Starting on Helene 10/18/23 at 0949, Anesthesia Intra-op Given 10/18/2023 9:49 AM BUSINESS ANALYST MANAGER 2,000 mg fentaNYL (SUBLIMAZE) preservative free injection intravenous, As needed, Starting on Helene 10/18/23 at 0934, Anesthesia Intra-op Given 10/18/2023 9:34 AM BUSINESS ANALYST MANAGER 100 mcg HYDROmorphone (DILAUDID) injection intravenous, Administer over 2 Minutes, As needed, Starting on Helene 10/18/23 at 1029, Anesthesia Intra-op Given 10/18/2023 11:11 AM BUSINESS ANALYST MANAGER 0.2 mg Given 10/18/2023 10:55 AM BUSINESS ANALYST MANAGER 0.2 mg Given 10/18/2023 10:43 AM BUSINESS ANALYST MANAGER 0.2 mg Lactated Ringer's (LR) infusion 30 mL/hr, intravenous, Continuous, Starting on Helene 10/18/23 at 0915, Pre-Op Restarted 10/18/2023 11:11 AM BUSINESS ANALYST MANAGER Rate/Dose Verify 10/18/2023 9:23 AM BUSINESS ANALYST MANAGER 30 mL/h r New Bag 10/18/2023 9:09 AM BUSINESS ANALYST MANAGER 30 mL/hr 30 mL/hr ondansetron (ZOFRAN) injection intravenous, Administer over 2 Minutes, As needed, Starting on Helene 10/18/23 at 1105, Anesthesia Intra-op Given 10/18/2023 11:05 AM BUSINESS ANALYST MANAGER 4 mg phenylephrine (ARIELLE-SYNEPHRINE) 1 mg/10 mL (100 mcg/mL) in sodium chloride 0.9% (premix) intravenous, As needed, Starting on Helene 10/18/23 at 0954, Anesthesia Intra-op Given 10/18/2023 10:00 AM BUSINESS ANALYST MANAGER 200 m cg Given 10/18/2023 9:54 AM BUSINESS ANALYST MANAGER 100 mcg propofoL (DIPRIVAN) 10 mg/mL IV intravenous, As needed, Starting on Helene 10/18/23 at 0934, Anesthesia Intra-op Given 10/18/2023 9:34 AM BUSINESS ANALYST MANAGER 160 mg documented in this encounter Care Teams Sterile Products Processor Relationship Specialty Start Date End Date Rl Medina DO [address] [place] [address] PCP - General 08/09/17 05/25/24 documented as of this encounter
--- OUTSIDE RECORDS SUMMARY | 2024-11-05 23:04 | XMS_ITS | Encounter Summary ---
Author Organization [facility] Healthcare Address [address] [place] [address] Care Team Providers Care Shot Coat Tender Name Role Phone Rl Medina DO Primary Care Provider Reason for Visit * Auth/Cert Specialty Diagnoses / Procedures Referred By Contac t Referred To Contact Diagnoses Ureteral colic Procedures na Referral ID Status Reason Start Date Expiration Date Visits Re quested Visits Authorized [id number] 1 1 Encounter Details Date Type Department Care Team (Late st Contact Info) Description 10/13/2023 2:16 AM SERVER SYSTEMS ADMINISTRATOR Anesthesia Event [facility] Operating Room 1 [place] [address] Ra Burns MD [address] [place] [address] Carlos Manuel Lehman MD [address] [place] [address] Anesthesia Record Procedure Summary Procedure Name Responsible [...] on file Legal Sex Male 9:07 PM SERVER SYSTEMS ADMINISTRATOR Gender Identity Not on file Sexual Orientation Not on file 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 ER SYSTEMS ADMINISTRATOR * Anesthesia Procedure Notes - Conor Quiroz [...] with: silk tape Number of attempts: 1 ER SYSTEMS ADMINISTRATOR * Anesthesia Preprocedure Evaluation - Ra Burns [...] Lines/Drains/Tubes/Devices Lines in situ (PIV): Additional comments: [facility] Anesthesia Plan ASA 3- emergent My patient is approved for the Anesthesia Controlled Medication protocol when under care of a ENVIRONMENTAL TECHNICAL OFFICER Planned anesthesia: General Team communication plan: oral [...] and agree to proceed. All questions answered. ER SYSTEMS ADMINISTRATOR documented in this encounter Plan of Treatment Not on file documented as of this encounter Procedures Procedure Name Priority Date/Time Associated Diagnosis Comments ANESTHESIA INTUBATION Routine 10/13/2023 2:46 AM SERVER SYSTEMS ADMINISTRATOR documented in this encounter Results * Airway (10/13/2023 2:46 AM SERVER SYSTEMS ADMINISTRATOR) Narrative Conor Quiroz MD - 10/13/2023 2:46 AM SERVER SYSTEMS ADMINISTRATOR Conor Quiroz MD ? 10/13/2023 ??2:46 AM [...] 0246, Anesthesia Intra-op Given 10/13/2023 2:46 AM SERVER SYSTEMS ADMINISTRATOR 4 mg famotidine (PEPCID) injection intravenous, Administer over 2 Minutes, As needed, Starting on 10/13/23 at 0150, Anesthesia Intra-op Given 10/13/2023 12:50 AM SERVER SYSTEMS ADMINISTRATOR 20 mg fentaNYL (SUBLIMAZE) preservative free injection intravenous, As needed, Starting on 10/13/23 at 0228, Anesthesia Intra-op Given 10/13/2023 2:28 AM SERVER SYSTEMS ADMINISTRATOR 100 mcg Lactated Ringer's (LR) infusion intravenous, Continuous PRN, Starting on 10/13/23 at 0228, Anesthesia Intra-op New Bag 10/13/2023 2:28 AM SERVER SYSTEMS ADMINISTRATOR lidocaine (cardiac) (XYLOCAINE) preservative free injection intravenous, As needed, Starting on 10/13/23 at 0228, Anesthesia Intra-op, Indications: Ventricular ArrhythmiasIndications:Ventricul ar Arrhythmias Given 10/13/2023 2:28 AM SERVER SYSTEMS ADMINISTRATOR 80 mg ondansetron (ZOFRAN) injection intravenous, Administer over 2 Minutes, As needed, Starting on 10/13/23 at 0248, Anesthesia Intra-op Given 10/13/2023 2:48 AM SERVER SYSTEMS ADMINISTRATOR 4 mg phenylephrine (ARIELLE-SYNEPHRINE) 1 mg/10 mL (100 mcg/mL) in sodium chloride 0.9% (premix) intravenous, As needed, Starting on 10/13/23 at 0250, Anesthesia Intra-op Given 10/13/2023 2:56 AM SERVER SYSTEMS ADMINISTRATOR 100 mcg Given 10/13/2023 2:50 AM SERVER SYSTEMS ADMINISTRATOR 100 mcg propofoL (DIPRIVAN) 10 mg/mL IV intravenous, As needed, Starting on 10/13/23 at 0229, Anesthesia Intra-op Given 10/13/2023 2:39 AM SERVER SYSTEMS ADMINISTRATOR 30 mg Given 10/13/2023 2:29 AM SERVER SYSTEMS ADMINISTRATOR 130 mg succinylcholine (ANECTINE) injection intravenous, As needed, Starting on 10/13/23 at 0229, Anesthesia Intra-op Given 10/13/2023 2:29 AM SERVER SYSTEMS ADMINISTRATOR 100 mg documented in this encounter Care Teams Shot Coat Tender Relationship Specialty Start Date End Date Rl Medina DO [address] [place] [address] PCP - General 08/09/17 05/25/24 documented as of this encounter
--- OUTSIDE RECORDS SUMMARY | 2024-11-05 23:04 | XMS_ITS | Encounter Summary ---
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 [facility]. [facility], [address] If you have any financial questions please call [phone] (ONLY SHARE THIS IF PATIENT INQUIRES) If you need to cancel or reschedule your appointment please call [phone] Ask them the covid screening questions Have [...] then please connect the patient with the student accounts coordinator at [phone]. If a direct number is requested by the patient please give them [phone]. ETBALL SCOUT documented in this encounter Plan of Treatment Not on file documented as of this encounter Visit Diagnoses Not on filedocumented in this encounter Care Teams Milling Operator Relationship Specialty Start Date End Date Rl Medina DO [address] [place] [address] PCP - General 08/09/17 05/25/24 documented as of this encounter
--- OUTSIDE RECORDS SUMMARY | 2024-11-05 23:04 | XMS_ITS | Encounter Summary ---
Author Organization [facility] Address [address] [place] [address] Phone Care Team Providers Care Physical Aerodynamicist Name Role Phone Rl Medina DO Primary Care Provider [phone] Reason for Visit * Reason Onset Date Comments Surgery Confirmation 10/10/2023 Encounter Details Date Type Department Care Team (Late st Contact Info) Description 10/10/2023 Telephone [facility] Orthopaedic Surgery [address] [facility] [address] 6th [place] [address] [place] [address] Marcial Vu Jr., MD [address] [facility] [address] [place] [address] Surgery Confirmation Social History Tobacco [...] on file Legal Sex Male 9:07 PM TUNGSTEN TENDER Gender Identity Not on file Sexual Orientation Not on file 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 Val in agreement with plan. STEN TENDER * Telephone Encounter - Galina Franco RN - 10/12/2023 10:08 AM TUNGSTEN TENDER Pt's labs from yesterday +UTI, +E.coli 100,000. [...] to my direct office number with recommendations. STEN TENDER * Telephone Encounter - Galina Franco RN - 10/10/2023 4:14 PM CST Spoke with pt's , Val, regarding new surgery date for pt that is 10/16 at [facility]. Discussed pre-operative appointments that are tomorrow and Sunday at [facility]. Pt already discontinued advil and instructed pt to discontinue fish oil and tumeric (delayed discussion since initial OR date was 10/23. Pt and aware that authorization for surgery is still pending for surgery, it has been expedited but it may be difficult to obtain prior to surgery. Will keep pt updated. All information sent via [employer] as well. Pt/ to call back if anything additional is needed. STEN TENDER documented in this encounter Plan of Treatment Not on file documented as of this encounter Visit Diagnoses Not on filedocumented in this encounter Care Teams Physical Aerodynamicist Relationship Specialty Start Date End Date Rl Medina DO [address] [place] [address] PCP - General 08/09/17 05/25/24 documented as of this encounter
--- OUTSIDE RECORDS SUMMARY | 2024-11-05 23:04 | XMS_ITS | Encounter Summary ---
Author Organization [facility] Address [address] [place] [address] Phone Care Team Providers Care Coordinator Hotels Name Role Phone Rl Medina DO Primary Care Provider Reason for Visit * Reason Comments Test Results MRI F/U Return Patient MRI F/U Encounter Details Date Type Department Care Team (Late st Contact Info) Description 10/08/2023 10:20 AM RECORDS AND INFORMATION MANAGER Office Visit [facility] Orthopaedic Surgery [address] [place] [address] Medical Office Building [address] [place] [address] Marcial Vu Jr., MD [facility] [address] [place] [address] Osteoporosis screening (Primary Dx); Other [...] Legal Sex Male 9:07 PM RECORDS AND INFORMATION MANAGER Gender Identity Not on file Sexual Orientation Not on file 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 Dr. Vu has recommended the following treatment: Surgical Recommendation: L4-5 decompression/diskectomy versus an L4-L5 MIS TLIF Surgery Date(s): 10/23 at [facility], potentially 10/19 at [facility] Prior to surgery you will be scheduled for an appointment for pre operative teaching with Galina and an appointment with the Anesthesia Nurse Practitioner, which will include a medical history assessment and lab work. You will need to contact your assistant director of nursing and/or other specialists for surgical clearance if [...] Numbers: Galina, Nurse Coordinator to Dr. Vu: [phone] FMLA/Leave or Disability Paperwork: Dr. Vu will complete leave paperwork for your surgical date through your post operative restrictions. If paperwork is needed for your employer, please either attach the paperwork to [employer] it to [phone]. RDS AND INFORMATION MANAGER RDS AND INFORMATION MANAGER RDS AND INFORMATION MANAGER documented in this encounter Progress Notes * [...] and in agreement. Marcial Vu Jr., MD Measuring Machine Tender Department of Orthopaedic Surgery Division of Spine Surgery [facility] [place], [place] Pile Fabric Knitter done by [employer]; therefore, variances and inaccuracies may occur. I reviewed the patient problem list pertinent to the visit today, but the entire patient problem list was not reviewed today. Total time spent on this patient visit today was 30 minutes dedicated to chart review, independent imaging review, patient evaluation, examination, counseling and education, and coordination of care. RDS AND INFORMATION MANAGER RDS AND INFORMATION MANAGER documented in this encounter Plan of [...] documented as of this encounter Care Teams Coordinator Hotels Relationship Specialty Start Date End Date Rl Medina DO [address] [place] [address] PCP - General 08/09/17 05/25/24 documented as of this encounter
--- OUTSIDE RECORDS SUMMARY | 2024-11-05 23:04 | XMS_ITS | Encounter Summary ---
Author Organization [facility] Address [address] [place] [address] Phone Care Team Providers Care Internet Marketing Assistant Name Role Phone Rl Medina DO Primary Care Provider Reason for Visit * Consultation (Routine) - Closed Specialty Diagnoses / Procedures Referred By Manisha gale Referred To Contact Urology Diagnoses Bladder neck obstruction Rl Medina DO [address] [place] [address] Phone: tel: fax: [facility] (All Locations) Referral ID Status Reason Start Date Expiration Date V isits Requested Visits Authorized [id number] Closed Specialty Services Required 10/10/2022 11/09/2023 99 99 Encounter Details Date Type Department Care Team (Late st Contact Info) Description 07/02/2023 2:40 PM CDT Office Visit [facility] Urology [address] [facility] Medical Office Building [address] [place] [address] Urge incontinence (Primary Dx) Social [...] file Legal Sex Male 9:07 PM MANAGER ACTIVITIES Gender Identity Not on file Sexual Orientation [...] Primary documented in this encounter Care Teams Internet Marketing Assistant Relationship Specialty Start Date End Date Rl Medina DO [address] [place] [address] PCP - General 08/09/17 05/25/24 documented as of this encounter
--- OUTSIDE RECORDS SUMMARY | 2024-11-05 23:04 | XMS_ITS | Encounter Summary ---
Author Organization [facility] Healthcare Address [address] [place] [address] Care Team Providers Care Stakes Player Name Role Phone Rl Medina DO Primary Care Provider Reason for Referral * MRI/CAT/PET Scan (Routine) - Closed Specialty Diagnoses / Procedures Referred By Contac t Referred To Contact Radiology Diagnoses Lumbar spine pain Lumbar radiculopathy Procedures MRI Lumbar Spine WWO Contrast Marcial Vu Jr., MD [address] [place] [address] Phone: tel: fax: [place] [phone] [place] [phone] Referral ID Status Reason Start Date Expiration Date Visits Re quested Visits Authorized [id number] Closed 09/13/2023 10/12/2024 1 1 E CONTROLLER Reason for Visit * MRI/CAT/PET Scan (Routine) - Closed Specialty Diagnoses / Procedures Referred By Contac t Referred To Contact Radiology Diagnoses Lumbar spine pain Lumbar radiculopathy Procedures MRI Lumbar Spine WWO Contrast Marcial Vu Jr., MD [address], [place] [address] Phone: tel: fax: [facility] [phone] [place] [phone] Referral ID Status Reason Start Date Expiration Date Visits Re quested Visits Authorized [id number] Closed 09/13/2023 10/12/2024 1 1 Encounter Details Date Type Department Care Team (Latest Contact Info) Description 10/01/2023 2:38 PM SPACE CONTROLLER - 10/01/2023 11:59 PM SPACE CONTROLLER Hospital Encounter [facility] Imaging [phone] [place] [phone] Lumbar spine pain; Lumbar radiculopathy Discharge Disposition: [...] on file Legal Sex Male 9:07 PM SPACE CONTROLLER Gender Identity Not on file Sexual Orientation Not on file 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 Not on file [...] tablet (10 mg total) by mouth early breastfeeding care specialist before breakfast 4 cholecalciferol (VITAMIN D-3) 5,000 unit capsuleIndication s:Vitamin D Deficiency Take 1 capsule (5,000 Units total) by mouth every morning 4 coenzyme Q10 100 mg capsule Take 1 capsule (100 mg total) by mouth early breastfeeding care specialist before breakfast 4 cyclobenzaprine (FLEXERIL) 10 mg tablet Take 1 tablet (10 mg total) by mouth 3 (three) times a day as needed 08/19/2023 3 DILT-XR 240 mg 24 hr capsuleIndication s:hypertension Take 1 capsule (240 mg total) by mouth 2 (two) times a day 0 05/12/2019 4 fish,bora,flax oils-om3,6,9no1 400-400-400 mg capsuleIndication s:Supplement Take 1 tablet by mouth early breastfeeding care specialist before breakfast 4 HYDROcodone-aceta minophen (NORCO) 5-325 [...] Read Routine (OP Routine) 10/01/2023 3:29 PM SPACE CONTROLLER Lumbar spine pain Lumbar radiculopathy documented in this encounter Results * MRI Lumbar Spine WWO Contrast (10/01/2023 3:29 PM SPACE CONTROLLER) Anatomical Region Laterality Modality Spine N/A Magnetic Resonan ce 10/01/2023 4:11 PM SPACE CONTROLLER Impressions 10/01/2023 4:11 PM SPACE CONTROLLER Moderate degenerative changes of the lumbar spine, [...] Zac Mcgarry M.D. Narrative 10/01/2023 4:11 PM SPACE CONTROLLER EXAMINATION: Magnetic resonance imaging (MRI) of the [...] 1 dose Contrast Given 10/01/2023 3:32 PM SPACE CONTROLLER 16 mL documented in this encounter Orders Medications Ordered That Armando ht Not Have Been Administered Count Last Ordered Date First Ordered Date gadoterate meglumine injection 20 mL 1 09/06 documented in this encounter Care Teams Stakes Player Relationship Specialty Start Date End Date Rl Medina DO [address] [place] [address] PCP - General 08/09/17 05/25/24 documented as of this encounter
--- OUTSIDE RECORDS SUMMARY | 2024-11-05 23:04 | XMS_ITS | Encounter Summary ---
Author Organization [facility] Address [address] [place] [address] Phone Care Team Providers Care Research Chef Name Role Phone Rl Medina DO Primary Care Provider Reason for Referral * Medication Authorization (Routine) - Canceled Specialty Diagnoses / Procedures Referred By Contac t Referred To Contact Urology Diagnoses Urge incontinence Overactive bladder Pan Irene MD [address] [facility] [address] [place] [address] Phone: tel: fax: Referral ID Status Reason Start Date Expiration Date V isits Requested Visits Authorized [id number] Canceled 05/06/2024 05/05/2025 4 4 * Medication Authorization (Routine) - Authorized Specialty Diagnoses / Procedures Referred By Contac t Referred To Contact Urology Diagnoses Urgency incontinence Pan Irene MD [address] [facility] [address] [place] [address] Phone: tel: fax: Referral ID Status Reason Start Date Expiration Date V isits Requested Visits Authorized [id number] Authorized 05/01/2024 05/01/2025 4 4 Reason for Visit * Reason Comments Follow-up Cysto for Botox 100 units * Consultation (Routine) - Closed Specialty Diagnoses / Procedures Referred By Contrussell t Referred To Contact Urology Diagnoses Bladder neck obstruction Rl Medina DO [address] [place] [address] Phone: tel: fax: [facility] (All Locations) Referral ID Status Reason Start Date Expiration Date V isits Requested Visits Authorized [id number] Closed Specialty Services Required 10/10/2022 11/09/2023 99 99 Encounter Details Date Type Department Care Team (Late st Contact Info) Description 06/14/2023 2:40 PM CDT Office Visit [facility] Urology [address] [facility] Medical Office Building [address] [place] [address] Pan Irene MD [address] [facility] [address] [place] [address] Urge incontinence (Primary Dx); Overactive [...] on file Legal Sex Male 9:07 PM CORNETIST Gender Identity Not on file Sexual Orientation Not on file documented as of this encounter Progress Notes * Pan Irene MD - 06/14/2023 2:40 PM CDT Indication for Botox injection into the bladder: overactive bladder, urge urinary incontinence. Botox: Lot Number [id number] Exp Date 07/2025 Patient has elected to [...] injection were performed in the presence of senior communications specialist, Alice Pretty. Nursing instructions: Patient will follow up in about 2 weeks to check PVR (unless patient is already doing CIC). If PVR > 350 cc, teach CIC, and see Dr. Teto turner in one month, keep a 3 [...] 04/24/2023 documented in this encounter Care Teams Research Chef Relationship Specialty [place] [address] [place] [address] PCP - General 08/09/17 05/25/24 documented as of this encounter
--- OUTSIDE RECORDS SUMMARY | 2024-11-05 23:04 | XMS_ITS | Encounter Summary ---
Author Organization [facility] Healthcare Address [address] [place] [address] Care Team Providers Care Food Service Lead Name Role Phone Rl Medina DO Primary Care Provider Reason for Visit * MRI/CAT/PET Scan (Routine) - Closed Specialty Diagnoses / Procedures Referred By Contac t Referred To Contact Procedures Neuro MR Outside Reference Marcial Vu Jr., MD [address] [place] [address] [place] [address] Phone: tel: fax: Referral ID Status Reason Start Date Expiration Date Visits Re quested Visits Authorized [id number] Closed 09/13/2023 10/12/2024 1 1 Encounter Details Date Type Department Care Team (Latest Contact Info) Description 09/13/2023 12:56 PM ENTRY LEVEL ELECTRICIAN - 09/13/2023 11:59 PM ENTRY LEVEL ELECTRICIAN Hospital Encounter [facility] [address] [place] [address] Discharge Disposition: Discharge to home or self [...] on file Legal Sex Male 9:07 PM ENTRY LEVEL ELECTRICIAN Gender Identity Not on file Sexual Orientation Not on file 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 Not on file [...] 1 tablet (10 mg total) by mouth glass maker before breakfast 4 cholecalciferol (VITAMIN D-3) 5,000 unit capsuleIndication s:Vitamin D Deficiency Take 1 capsule (5,000 Units total) by mouth every morning 4 coenzyme Q10 100 mg capsule Take 1 capsule (100 mg total) by mouth glass maker before breakfast 4 cyclobenzaprine (FLEXERIL) 10 mg tablet Take 1 tablet (10 mg total) by mouth 3 (three) times a day as needed 08/19/2023 3 DILT-XR 240 mg 24 hr capsuleIndication s:hypertension Take 1 capsule (240 mg total) by mouth 2 (two) times a day 0 05/12/2019 4 fish,bora,flax oils-om3,6,9no1 400-400-400 mg capsuleIndication s:Supplement Take 1 tablet by mouth glass maker before breakfast 4 HYDROcodone-aceta minophen (NORCO) 5-325 [...] MR OUTSIDE REFERENCE Routine 09/13/2023 12:56 PM ENTRY LEVEL ELECTRICIAN documented in this encounter Results * Neuro MR Outside Reference (09/13/2023 12:56 PM ENTRY LEVEL ELECTRICIAN) Impressions [facility] - 09/13/2023 12:56 PM ENTRY LEVEL ELECTRICIAN These images are for Reference purposes only and have not been reviewed by [facility]iology. ??There will be no report generated by a [facility] Radiologist. Narrative [facility] - 09/13/2023 12:56 PM ENTRY LEVEL ELECTRICIAN EXAMINATION: ??Images For Reference Purposes Only Marcial Vu Jr., MD IMG MRI PROCEDURES Final Result [facility] documented in this encounter Visit Diagnoses Not on filedocumented in this encounter Care Teams Food Service Lead Relationship Specialty [place] [address] [place] [address] PCP - General 08/09/17 05/25/24 documented as of this encounter
--- OUTSIDE RECORDS SUMMARY | 2024-11-05 23:04 | XMS_ITS | Encounter Summary ---
Author Organization [facility] Healthcare Address [address] [place] [address] Care Team Providers Care Investment Executive Name Role Phone Rl Medina DO Primary Care Provider [phone] Reason for Referral * Diagnostic Imaging (Routine) - Closed Specialty Diagnoses / Procedures Referred By Contac t Referred To Contact Radiology Diagnoses Lumbar radiculopathy Procedures IR Transforaminal Epidural Injection Lumbar Sacral 1 Level Left Marcial Vu Jr., MD [address] [place] [address] Phone: tel: fax: [place] [phone] [place] [phone] Referral ID Status Reason Start Date Expiration Date Visits Re quested Visits Authorized [id number] Closed 09/13/2023 11/04/2023 1 1 NG CAPTAIN Reason for Visit * Diagnostic Imaging (Routine) - Closed Specialty Diagnoses / Procedures Referred By Contac t Referred To Contact Radiology Diagnoses Lumbar radiculopathy Procedures IR Transforaminal Epidural Injection Lumbar Sacral 1 Level Left Marcial Vu Jr., MD [id number], [place] [address] Phone: tel: fax: [facility] [phone] [place] [phone] Referral ID Status Reason Start Date Expiration Date Visits Re quested Visits Authorized [id number] Closed 09/13/2023 11/04/2023 1 1 Encounter Details Date Type Department Care Team (Latest Contact Info) Description 09/21/2023 8:41 AM MINING CAPTAIN - 09/21/2023 11:59 PM MINING CAPTAIN Hospital Encounter [id number] Radiology [address] [facility] [address] [place] [phone] Ryan Jones MD [address] [facility] [address] [place] [address] Lumbar radiculopathy Discharge Disposition: Discharge to home [...] file Legal Sex Male 9:07 PM MINING CAPTAIN Gender Identity Not on file Sexual Orientation Not on file 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 Check fasting (perforator typist prior to first meal of the day) [...] concerns after hours, call our exchange at [phone]. For all other questions regarding the procedure, please call our office at [phone]. Pain Diary Please fill out the pain diary chart below and call or message via [employer] the medical provider whorequested the injection, Dr. [...] weeks after? 0% 20% 50% 80% 100% NG CAPTAIN documented in this encounter Medications at Time [...] 1 tablet (10 mg total) by mouth perforator typist before breakfast 4 cholecalciferol (VITAMIN D-3) 5,000 unit capsuleIndication s:Vitamin D Deficiency Take 1 capsule (5,000 Units total) by mouth every morning 4 coenzyme Q10 100 mg capsule Take 1 capsule (100 mg total) by mouth perforator typist before breakfast 4 cyclobenzaprine (FLEXERIL) 10 mg tablet Take 1 tablet (10 mg total) by mouth 3 (three) times a day as needed 08/19/2023 3 DILT-XR 240 mg 24 hr capsuleIndication s:hypertension Take 1 capsule (240 mg total) by mouth 2 (two) times a day 0 05/12/2019 4 fish,bora,flax oils-om3,6,9no1 400-400-400 mg capsuleIndication s:Supplement Take 1 tablet by mouth perforator typist before breakfast 4 HYDROcodone-aceta minophen (NORCO) 5-325 [...] CST Left L4-5 Transforaminal Epidural Steroid Injection [facility] Department of Orthopedic Surgery Division of Physical [...] the entire procedure above. Ryan Jones MD NG CAPTAIN documented in this encounter Plan of Treatment Not on file documented as of this encounter Procedures Procedure Name Priority Date/Time Associated Diagnosis Comments TRANSFORAMINAL EPIDURAL INJECTION LUMBAR SACRAL 1 LEVEL LEFT Schedule Routine, Read Routine (OP Routine) 09/21/2023 10:03 AM MINING CAPTAIN Lumbar radiculopathy documented in this encounter Results * IR Transforaminal Epidural Injection Lumbar Sacral 1 Level Left (09/21/2023 10:03 AM MINING CAPTAIN) Narrative [id number] - 09/21/2023 10:03 AM MINING CAPTAIN The images from this study are not [...] at 0843, Intra-Op Given 09/21/2023 8:43 AM MINING CAPTAIN 20 mg iohexoL (OMNIPAQUE) 300 mg iodine/mL injection solution As needed, Starting on Sun09/21/23 at 0844, Intra-Op Given 09/21/2023 8:44 AM MINING CAPTAIN 1 mL lidocaine PF (XYLOCAINE) 10 mg/mL (1 %) preservative free injection As needed, Starting on Sun09/21/23 at 0843, Intra-Procedure (IR), Indications: Administration of Local AnesthesiaIndications:Administratio n of Local Anesthesia Given 09/21/2023 8:43 AM MINING CAPTAIN 6 mL documented in this encounter Care Teams Investment Executive Relationship Specialty Start Date End Date Rl Medina DO [address] [place] [address] PCP - General 08/09/17 05/25/24 documented as of this encounter
--- OUTSIDE RECORDS SUMMARY | 2024-11-05 23:04 | XMS_ITS | Encounter Summary ---
Author Organization [facility] Healthcare Address [address] [place] [address] Care Team Providers Care Eligibility Consultant Name Role Phone Rl Medina DO Primary Care Provider Reason for Visit * Reason Comments Urinary Problem * Auth/Cert Specialty Diagnoses / Procedures Referred By Contac t Referred To Contact Diagnoses Ureteral colic Procedures na Referral ID Status Reason Start Date Expiration Date Visits Re quested Visits Authorized [id number] 1 1 Encounter Details Date Type Department Care Team (Late st Contact Info) Description 10/13/2023 1:45 AM CEMENT CUTTER - 10/13/2023 3:25 AM CEMENT CUTTER Surgery [facility] Operating Room [address] [place] [address] Fredrick Mcneil MD [address] [place] [address] CYSTOSCOPY Surgery Details Date/Time Status Location OR [...] on file Legal Sex Male 9:07 PM CEMENT CUTTER Gender Identity Not on file Sexual Orientation Not on file 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 Not on file Not on file Not on file documented as of this encounter Last Filed Vital Signs Vital Sign Reading Time Taken Comments Blood Pressure 142/84 10/13/2023 3:20 AM CEMENT CUTTER Pulse 79 10/13/2023 3:20 AM CEMENT CUTTER Temperature 36.4 ??C (97.5 ??F) 10/13/2023 12:[address] Respiratory Rate 24 10/13/2023 3:20 AM CEMENT CUTTER Oxygen Saturation 97% 10/13/2023 3:20 AM CEMENT CUTTER Inhaled Oxygen Concentration - - Weight 81.6 kg (180 lb) 10/12/2023 4:24 PM CEMENT CUTTER Height 172.7 cm (5' 8 ) 10/12/2023 4:24 PM CEMENT CUTTER Body Mass Index 29.7 10/13/2023 4:15 AM CEMENT CUTTER documented in this encounter Discharge Summaries * Rafael Rodriguez NP - 10/30/2023 1:19 PM CST Images from the original note were not included. Spine Inpatient Discharge Summary Admitting Provider: Hayder Vu MD Discharge Provider: Hayder Vu Fo* Primary Care Physician at Discharge: Rl Medina DO [phone] Admission Date: 10/12/2023 Discharge Date: 10/30/2023 Primary [...] URO BW MOB4 JORDAN 12/24/2023 2:20 PM [facility] BCT3 BJ N CT BJ Main IMG 12/24/2023 3:30 PM Carrie Jerez, BUSINESS INFORMATION MANAGER SPINE BWMOB4 NS Chem/LFT Lab History Latest [...] tablet (10 mg total) by mouth glass or mirror inspector before breakfast For: inflammation of the nose due to an allergy Commonly known as: ZyrTEC cholecalciferol 5,000 unit capsule Take 1 capsule (5,000 Units total) by mouth every morning For: low vitamin D levels Commonly known as: VITAMIN D-3 coenzyme Q10 100 mg capsule Take 1 capsule (100 mg total) by mouth glass or mirror inspector before breakfast cyclobenzaprine 5 mg tablet Take [...] mg capsule Take 1 tablet by mouth glass or mirror inspector before breakfast For: Supplement gabapentin 300 mg [...] says it's OK. *Do not do any visual specialist that cause you to twist, push or [...] to previous diet Contact Information for Follow-ups [facility] (All Locations) Next Steps: Follow up Comments: Please schedule patient for follow up appointment. Section: Epilepsy Provider: First available Time Frame: First available Schedule with Transition of Care Clinic: No Questions: Please select the performing region: [facility] (All Locations) # of visits: 1 Referral Status: Pending Coordinator Review [facility] Home Care Services Specialty: Home Health and Hospice [id number] [facility] [address] Next Steps: Follow up Questions: Service Line: [...] Hayder Vu MD at 10/31/2023 3:37 PM CEMENT CUTTER NT CUTTER NT CUTTER NT CUTTER documented in this encounter Discharge Instructions * Discharge Instructions* Rafael Rodriguez NP - 10/30/2023 10:21 AM CEMENT CUTTER Thoracic/Lumbar Spinal Fusion Post-Operative Instructions Questions: ?? For any post-operative questions, please contact Dr. Horace Mojica???s nurse, at [phone] via [facility]. Galina will view and respond to your [facility] questions sent to Dr. Vu. Wound Care: [...] you upon discharge. Please call Galina at [phone] if unable to keep appointment. Nov 09, 2023 11:[address] Rl Medina Post-hospitalization appointment Nov 12, 2023 9:20 AM New with Hayder Vu MD [facility] Orthopaedic Surgery ( ORTHOPEDIC SURGERY) [address] [place] [address] 6th Floor [address] [facility] [address] Dec 03, 2023 1:20 PM Return with Hayder Vu MD [facility] Orthopaedic Surgery ( ORTHOPEDIC SURGERY) [address] [facility] Medical Office Building [address] [facility] [address] Dec 13, 2023 1:20 PM Return with Pan Irene MD [facility] Urology (WOOD SURGERY) [address] [facility] Medical Office Building [address] [address] CALL [facility] FOR FOLLOW UP APPT WITH THE [facility] EPILEPSY DEPARTMENT [phone] Emergencies: SIGNS OF AN EMERGENT SITUATION INCLUDE-If [...] it is best that you return to [facility] for your emergent care. Please call the emergency exchange at [phone] or toll free any time of the day or night on the daysthe office is closed, so that the emergent care can be initiated for you. Please follow these instructions for emergency calls: -During business hours (Sunday through Sunday 8am-4:30 PM except for holidays), call [phone]. The roller leveler operator will connect you with Dr. Vu???s nurse. Dr. Vu???s nurse reports all emergencies to Dr. Vu. -After business hours (after 4:30 PM and before 8:00am) you may call the Emergency Orthopaedic Exchange at [phone] or TOLL [phone]. The roller leveler operator firmware software verification engineer will contact Dr. Echeverria???s staff. IMPORTANT: Refills of medications need to be done during business hours-NO pain medication refills will be given over the phone after hours. Please call with any questions or concerns. We will be glad to assist you in any way during your recovery period. Dr. Vu???s Staff Galina Franco RN: [phone] NT CUTTER NT CUTTER NT CUTTER NT CUTTER NT CUTTER NT CUTTER documented in this encounter Medications at Time [...] tablet (10 mg total) by mouth glass or mirror inspector before breakfast 4 cholecalciferol (VITAMIN D-3) 5,000 unit capsuleIndication s:Vitamin D Deficiency Take 1 capsule (5,000 Units total) by mouth every morning 4 coenzyme Q10 100 mg capsule Take 1 capsule (100 mg total) by mouth glass or mirror inspector before breakfast 4 cyclobenzaprine (FLEXERIL) 5 mg [...] s:Supplement Take 1 tablet by mouth glass or mirror inspector before breakfast 4 gabapentin (NEURONTIN) 300 mg [...] Patient choice (Home Health/Hospice) list given to patient/customer retention representative? Not Applicable [facility] list given to patient/customer retention representative? Not Applicable IM letter completed with patient at bedside. Patient informed of the planned discharge date, the date the beneficiary's financial liability begins, the beneficiary's appeal rights, and how and when to initiate an appeal. Patient provided copy of IM letter, IM letter placed in unit's designated medical record bin to be uploaded into patient's chart. Nathalie Herrera, CLAIRE, RN NT CUTTER * Nathalie Herrera RN - 10/30/2023 9:08 AM CST 10/30/23 0908 Communications Important Message from Medicare notice given to patient? Not Applicable [facility] letter given? Not Applicable Patient choice (Home Health/Hospice) list given to patient/customer retention representative? Yes [facility] Facility list given to patient/customer retention representative? Not Applicable Fiduciary Responsibility Patient/Designated decision maker was informed of [facility] fiduciary relationship as necessary Speedboat Driver noted patient has been recommended for home heatlh by PT/OT. Speedboat Driver met with thepatient at bedside to discuss recommendations by therapy and to work on a potential discharge disposition plan. Speedboat Driver provided education to patient on therapy recommendations and home health services. Patient reported being interested in home health. apartment maintenance manager provided a home health list to patient. Patient selected the following choices (preference order): Residential ([facility]) Home Health [facility] Home Health apartment maintenance manager sent out referrals via [facility]. CM [facility] a [facility] on [facility] planning with patient and family. Patient states he has own wheeled walker. Nathalie Herrera, MSN, RN NT CUTTER * Nathalie Champagne, PT - 10/30/2023 7:32 [...] treatment team and contact the PT or CLIENT MANAGER LARGE LAW currently assigned to this patient. If a physical therapy clinician is not assigned to this patient, please call [phone]. 10/30/23 0732 PT Last Visit Session Type [...] SPV via logroll - ADEQUATE FOR DISCHARGE NT CUTTER * Nasir Manzanares MD - 10/30/2023 6:38 [...] BP pends, Dispo pending home with setup [facility] today Objective Vitals: 24hr Min/Max: [...] For susceptibility results, refer to accession number [id number] on the urine culture from 10/11/23 MICROBIOLOGY [...] Manzanares M.D. Department of Orthopaedic Surgery, PGY-3 [facility] in [place] [facility] Please use NuoDB to page/call the appropriate Orthopaedic Surgery Team/Resident if questions or concerns Please call with questions during daytime. See below for overnight issues. If you know the resident's name on the appropriate orthopaedic surgery team, please use [email or web address] to page resident directly. If questions arise and the appropriate resident can't be reached or you are calling overnight, please contact [phone] ([facility]- 7:30 PM - 6:30 AM - Floor Resident) or [phone] (24 hours/day - Consult Resident) Cosigned by Hayder Vu MD at 11/06/2023 6:43 PM CEMENT CUTTER NT CUTTER NT CUTTER * Nasir Manzanares MD - 10/29/2023 1:32 PM CST Brief Ortho Progress Note: I did not personally visualize the drain tip after it was inadvertantly removed last night. However, per report from overnight babysitter, the drain tip looked good and entire drain was removed. Nasir Manzanares MD Orthopaedic Surgery PGY2 NT CUTTER NT CUTTER * Artie Real MD PhD - 10/29/2023 [...] capsule 300 mg 300 mg oral Q8H [facility] levETIRAcetam (KEPPRA) tablet 1,000 mg 1,000 [...] non-contrast head CT. Responsible Team Darrian Bone ([phone]) Artie Real ([phone]) Hira Segura (Chief) For any questions or concerns, please contact the nurse practitioner signed in to the chart. If youare unable to reach them, you may contact the residents as listed. If it is after 6pm or you are unable to reach the BUSINESS INFORMATION MANAGER or resident team, please page the Neurosurgery Call Pager at [phone]. Note created by Artie Real MD PhD on 10/29/2023 at 7:20 AM. Cosigned by Gen Murray MD at 10/29/2023 4:52 PM CEMENT CUTTER NT CUTTER NT CUTTER * Nasir Manzanares MD - 10/29/2023 7:18 [...] For susceptibility results, refer to accession number [id number] on the urine culture from 10/11/23 MICROBIOLOGY [...] Manzanares M.D. Department of Orthopaedic Surgery, PGY-3 [facility] in [place]/[facility] Please use [email or web address] to page/call the appropriate Orthopaedic Surgery Team/Resident if questions or concerns Please call with questions during daytime. See below for overnight issues. If you know the resident's name on the appropriate orthopaedic surgery team, please use [email or web address] to page resident directly. If questions arise and the appropriate resident can't be reached or you are calling overnight, please contact [phone] ([facility]- 7:30 PM - 6:30 AM - Floor Resident) or [phone] (24 hours/day - Consult Resident) Cosigned by Hayder Vu MD at 11/06/2023 6:43 PM CEMENT CUTTER NT CUTTER NT CUTTER * Shane Bowen, OT - 10/28/2023 11:09 [...] not assigned to this patient, please call [phone]. 10/28/23 4627 General Session Type Treatment OT Received On [...] OT OT - OK to Discharge No NT CUTTER * Carey Hein, PT - 10/28/2023 10:00 [...] treatment team and contact the PT or CLIENT MANAGER LARGE LAW currently assigned to this patient. If a physical therapy clinician is not assigned to this patient, please call [phone]. 10/28/23 1000 PT Last Visit Session Type [...] 11/04/23 -- Goal Details: SPV with [facility] NT CUTTER * Nasir Manzanares MD - 10/28/2023 8:32 [...] For susceptibility results, refer to accession number [id number] on the urine culture from 10/11/23 MICROBIOLOGY [...] Manzanares M.D. Department of Orthopaedic Surgery, PGY-3 [facility] [place] Please use Deentyorg to page/call the appropriate Orthopaedic Surgery Team/Resident if questions or concerns Please call with questions during daytime. See below for overnight issues. If you know the resident's name on the appropriate orthopaedic surgery team, please use NuoDB to page resident directly. If questions arise and the appropriate resident can't be reached or you are calling overnight, please contact [phone] ([facility] 7:30 PM - 6:30 AM - Floor Resident) or [phone] (24 hours/day - Consult Resident) Cosigned by Hayder Vu MD at 11/06/2023 6:43 PM CEMENT CUTTER NT CUTTER NT CUTTER * Shane Bowen, OT - 10/27/2023 10:26 [...] not assigned to this patient, please call [phone]. 10/27/23 1027 General Session Type Treatment OT Received On [...] task) LE Dressing: Equipment Utilized Sock aid;Dressing stick;Gun Fitter Toileting Toileting: Where assessed Toilet Toileting: Level [...] -- Reviewed By Ana Hampton, NARENDRA 10/26/23 3888 Nathen Maharaj RN 10/24/23 1361 NT CUTTER * Nasir Manzanares MD - 10/27/2023 8:02 [...] For susceptibility results, refer to accession number [id number] on the urine culture from 10/11/23 MICROBIOLOGY [...] Manzanares M.D. Department of Orthopaedic Surgery, PGY-3 [facility] [place]/[facility] [facility] Please use NuoDB to page/call the appropriate Orthopaedic Surgery Team/Resident if questions or concerns Please call with questions during daytime. See below for overnight issues. If you know the resident's name on the appropriate orthopaedic surgery team, please use NuoDB to page resident directly. If questions arise and the appropriate resident can't be reached or you are calling overnight, please contact [phone] ([facility]- 7:30 PM - 6:30 AM - Floor Resident) or [phone] (24 hours/day - Consult Resident) Cosigned by Hayder Vu MD at 11/06/2023 6:43 PM CEMENT CUTTER NT CUTTER NT CUTTER * Ana Hampton RN - 10/26/2023 5:44 PM CST Pt transferred to room [address] [place] [address] Face to face report given to annetta MACKEY. belongings transferred with pt. Heparin gtt to be d/c. Labs obtained prior to transfer. NT CUTTER * Luana Singh RD - 10/26/2023 3:07 [...] Adult Diet Regular Diet effective now Question: ([facility]) Diet type Answer: Regular 10/25/23 0532 10/24/23 2100 Bedtime snack At bedtime Comments: If bedtime BG is less than 100mg/dl, give patient a 15 gram carbohydrate snack. 10/24/23 0353 Assessment / Impression: Pt screened for LOS x14 days. Transferred to [address] overnight. Spoke to pt and at bedside. Reports pt was eating well CLIENT MANAGER LARGE LAW, appetite reduced following his surgery but has [...] RD following. Joleen Singh, MS, RD, LD [facility] [phone] On-call/weekend: [phone] NT CUTTER * Aston Tran PTA - 10/26/2023 2:05 PM CST 10/26/23 1405 PT Last Visit PT Missed Visit Reason Family declined;Other (comment) (Pt's has politely declined PT at this time citing increased pain and fatigue following prior OT session. Pt's requests that PT staff follow-up in AM.) Recommendation/Plan PT - Next Appointment 10/27/23 NT CUTTER * Shane Bowen OT - 10/26/2023 9:53 [...] not assigned to this patient, please call [phone]. 10/26/23 2731 General Session Type Treatment OT Received On [...] for task) LE Dressing: Equipment Utilized Sock aid;Gun Fitter;Dressing stick Toileting Toileting: Where assessed Chair Toileting: [...] -- Reviewed By Nathen Maharaj RN 10/24/231800 NT CUTTER * Nasir Manzanares MD - 10/26/2023 7:08 [...] For susceptibility results, refer to accession number [id number] on the urine culture from 10/11/23 MICROBIOLOGY [...] Manzanares M.D. Department of Orthopaedic Surgery, PGY-3 [facility] Please use NuoDB to page/call the appropriate Orthopaedic Surgery Team/Resident if questions or concerns Please call with questions during daytime. See below for overnight issues. If you know the resident's name on the appropriate orthopaedic surgery team, please use NuoDB to page resident directly. If questions arise and the appropriate resident can't be reached or you are calling overnight, please contact [phone] ([facility]- 7:30 PM - 6:30 AM - Floor Resident) or [phone] (24 hours/day - Consult Resident) Cosigned by Hayder Vu MD at 10/26/2023 1:04 PM CEMENT CUTTER NT CUTTER NT CUTTER NT CUTTER Associated attestation - Hayder Vu Jr., MD - 10/26/2023 1:04 PM CEMENT CUTTER Attending Attestation I have seen and examined [...] questions were answered. Hayder Vu Jr., MD Chemical Economist Department of Orthopaedic Surgery Division of Spine Surgery [facility] [place], ID Indexer done by [employer]; therefore, variances and [...] downtrend recheck at 0600 HPI: 73yo male [id number] for complicated E. Coli UTI prior undergoing [...] been reviewed with attending, Dr. Adis Nolan, [facility] Critical Care Performed by: Tia Nolan [...] plan with the patient's team and other medical/small business consultant staff. 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 Otherwise no c/f falls prior Prior Function Comments: Patient reports symptoms began in 07/2023; however, CLIENT MANAGER LARGE LAW was IND with all I/ADLs and was [...] name and address after me: Hayder Reddy [address] [place] [address] Without looking at the clock, tell me [...] -- Reviewed By Nathen Maharaj RN 10/24/23 4273 For questions, please review the treatment team and contact the occupational therapist currently assigned to this patient. If an occupational therapist is not assigned to this patient, please call [phone]. NT CUTTER * Alisa Nath, PT - 10/25/2023 8:30 [...] treatment team and contact the PT or CLIENT MANAGER LARGE LAW currently assigned to this patient. If a physical therapy clinician is not assigned to this patient, please call [phone]. 10/25/23 0830 PT Last Visit Session Type [...] roll Reviewed By Nathen Maharaj RN 10/24/231800 NT CUTTER * Nasir Manzanares MD - 10/25/2023 7:53 [...] For susceptibility results, refer to accession number [id number] on the urine culture from 10/11/23 MICROBIOLOGY [...] Manzanares M.D. Department of Orthopaedic Surgery, PGY-3 [facility] [place]/[facility] Please use NuoDB to page/call the appropriate Orthopaedic Surgery Team/Resident if questions or concerns Please call with questions during daytime. See below for overnight issues. If you know the resident's name on the appropriate orthopaedic surgery team, please use NuoDB to page resident directly. If questions arise and the appropriate resident can't be reached or you are calling overnight, please contact [phone] ([facility]- 7:30 PM - 6:30 AM - Floor Resident) or [phone] (24 hours/day - Consult Resident) Cosigned by Hayder Vu MD at 10/26/2023 12:58 PM CEMENT CUTTER NT CUTTER NT CUTTER * Luana Brady NP - 10/25/2023 7:04 [...] Avel Bourne MD at 10/26/2023 5:50 PM CEMENT CUTTER NT CUTTER NT CUTTER * Hayden Barton MD - 10/24/2023 6:26 [...] EKG/Min 82 BPM Atrial Rate 82 BPM MS-Interval (MSEC) 166 ms QRS-Interval (MSEC) 78 ms QT-Interval (MSEC) 384 ms QTc 448 ms P [place] 34 degrees R [place] -30 degrees T [place] -13 degrees Diagnosis Normal sinus rhythm Left [...] Arceo Jr., MD at 10/25/2023 3:43 AM CEMENT CUTTER NT CUTTER NT CUTTER * Javad Sow, PT - 10/24/2023 12:03 PM CST Physical Therapy 10/24/23 1203 General PT Missed Visit Reason Family declined (request to allow patient to sleep) NT CUTTER * Dari Dickens, [facility] - 10/24/2023 10:51 AM CST Patient profile has been reviewed by clinical pharmacy grad intern on 10/24/2023. Case reviewed on rounds with [...] capsule 300 mg, 300 mg, oral, Q8H [facility], Amos Langley NP glucagon injection 1 [...] injection 0-10 Units, 0-10 Units, subcutaneous, Q4H [facility], Too Garcia MD, 2 Units at 10/24/23 0451 levETIRAcetam (KEPPRA) 1,000 mg/100 mL in sodium chloride (premix) 1,000 mg, 1,000 mg, intravenous,Q12H [facility]oma Stephanie, MD, 1,000 mg at 10/24/23 0936 [Held by Provider] multivit xrfcqslt-asur-YZ-calcium (THERA-M) tablet 1 tablet, 1 tablet, oral, [...] mg, 1,500 mg, intravenous, Q12H, Oneyda Foley, BUSINESS INFORMATION MANAGER Dari Dickens RPh, PharmD, BCPS, BCCCP NT CUTTER * Rob Langley, BUSINESS INFORMATION MANAGER - 10/24/2023 6:48 AM CSTAssociated Order(s): Critical [...] EKG/Min 82 BPM Atrial Rate 82 BPM MS-Interval (MSEC) 166 ms QRS-Interval (MSEC) 78 ms QT-Interval (MSEC) 384 ms QTc 448 ms P [place] 34 degrees R [place] -30 degrees T [place] -13 degrees Diagnosis Normal sinus rhythm Left [...] plan with the ICU team and other medical/small business consultant staff, making frequent assessments and decisions [...] Avel Bourne MD at 10/24/2023 6:17 PM CEMENT CUTTER NT CUTTER NT CUTTER NT CUTTER * Ata Marquez MD - 10/24/2023 5:56 [...] resuscitation in ICU. Edited by: Oneyda Foley BUSINESS INFORMATION MANAGER at 10/23/2023 6575 Objective Vitals: 24hr Min/Max: Temp Min: 36.5 [...] 5/5 5/5 Wrist flexion (C7) 4/5 5/5 Stencil Printer (C8) 4/5 5/5 Interosseous of hand (T1) [...] For susceptibility results, refer to accession number [id number] on the urine culture from 10/11/23 MICROBIOLOGY [...] Marquez M.D. Department of Orthopaedic Surgery, PGY-3 [facility] [place]/[facility] Please use NuoDB to page/call the appropriate Orthopaedic Surgery Team/Resident if questions or concerns Please call with questions during daytime. See below for overnight issues. If you know the resident's name on the appropriate orthopaedic surgery team, please use NuoDB to page resident directly. If questions arise and the appropriate resident can't be reached or you are calling overnight, please contact [phone] ([facility]- 7:30 PM - 6:30 AM - Floor Resident) or [phone] (24 hours/day - Consult Resident) Cosigned by Hayder Vu MD at 10/24/2023 1:48 PM CEMENT CUTTER NT CUTTER NT CUTTER Associated attestation - Hayder Vu Jr., MD - 10/24/2023 1:48 PM CEMENT CUTTER Attending Attestation I have seen and examined [...] questions or concerns. Hayder Vu Jr., MD Chemical Economist Department of Orthopaedic Surgery Division of Spine Surgery [place], [place] Indexer done by [employer]; therefore, variances and [...] of spine with ortho. Pipe Moseley MD NT CUTTER * Luciana Dickerson, PT - 10/23/2023 8:28 AM CST Physical Therapy 10/23/23 0828 General PT Missed Visit Reason Other (comment) (Per medical chart, pending OR today with ortho spine. Will follow up once post-op) NT CUTTER * Nasir Manzanares MD - 10/23/2023 6:14 [...] For susceptibility results, refer to accession number [id number] on the urine culture from 10/11/23 MICROBIOLOGY [...] the appropriate orthopaedic surgery team, please use [email or web address] to page resident directly. If questions arise and the appropriate resident can't be reached or you are calling overnight, please contact [phone] ([facility]- 7:30 PM - 6:30 AM - Floor Resident) or [phone] (24 hours/day - Consult Resident) Cosigned by Hayder Vu MD at 10/23/2023 4:10 PM CEMENT CUTTER NT CUTTER NT CUTTER Associated attestation - Hayder Vu Jr., MD - 10/23/2023 4:10 PM CEMENT CUTTER Attending Attestation I have seen and examined [...] tibialis anterior, EHL. Hayder Vu Jr., MD Chemical Economist Department of Orthopaedic Surgery Division of Spine Surgery [facility] [place], [place] Indexer done by [employer]; therefore, variances and inaccuracies may occur. * Jimenez Henao MD - 10/22/2023 3:29 PM CST Daily Progress Note Division of Hospital Medicine Name: Hira Evans : 1950 Today's Date: October 22, 2023 Age: 73 y.o. male Admission: 10/12/2023 Bed: [id number] LOS: 9 days Subjective Chief complaint: back [...] 33 minutes which was spent performing a yule-bh-mpbn encounter and personally completing the provider-level activities documented in the note. This includes time spent prior to the visit and after the visit in direct care of the patient. This time does not include time spent in any separately reportable services. Jimenez Henao MD NT CUTTER * Zehra Cook MD - 10/22/2023 6:43 [...] upcoming Tuesday 10/23. Please make NPO at [place], hold DVT prophylaxis. Edited by: Zehra Cook [...] For susceptibility results, refer to accession number [id number] on the urine culture from 10/11/23 MICROBIOLOGY [...] Edited by: Zehra Cook MD at 10/22/2023 0665 Please call with questions during daytime. See below for overnight issues. If you know the resident's name on the appropriate orthopaedic surgery team, please use [email or web address] to page resident directly. If questions arise and the appropriate resident can't be reached or you are calling overnight, please contact [phone] ([facility]- 7:30 PM - 6:30 AM - Floor Resident) or [phone] (24 hours/day - Consult Resident) Cosigned by Hayder Vu MD at 10/23/2023 7:36 AM CEMENT CUTTER NT CUTTER NT CUTTER * Jimenez Henao MD - 10/21/2023 10:51 AM CST Daily Progress Note Division of Hospital Medicine Name: Hira Evans : 1950 Today's Date: October 21, 2023 Age: 73 y.o. male Admission: 10/12/2023 Bed: [id number] LOS: 8 days Subjective Chief complaint: back [...] 28 minutes which was spent performing a bihm-vc-jxqb encounter and personally completing the provider-level activities documented in the note. This includes time spent prior to the visit and after the visit in direct care of the patient. This time does not include time spent in any separately reportable services. Jimenez Henao MD NT CUTTER * Jimenez Henao MD - 10/20/2023 2:55 PM CST Daily Progress Note Division of Hospital Medicine Name: Hira Evans : 1950 Today's Date: October 20, 2023 Age: 73 y.o. male Admission: 10/12/2023 Bed: [id number] LOS: 7 days Subjective Chief complaint: back [...] 28 minutes which was spent performing a iygp-nl-elji encounter and personally completing the provider-level activities documented in the note. This includes time spent prior to the visit and after the visit in direct care of the patient. This time does not include time spent in any separately reportable services. Jimenez Henao MD NT CUTTER * Belen Hennessy PA - 10/19/2023 1:59 [...] Belen Hennessy PA-C Interventional Radiology Available via [employer] Chat M-F 7 AM until 3 PM IR call pager M-F after 3 PM or on weekends If the patient does not already have a follow-up appointment arranged, please place order and then please call the [employer] front office help at between 7:30 AM and 4:00 PM. NT CUTTER * Jimenez Henao MD - 10/19/2023 12:50 PM CST Daily Progress Note Division of [facility] Name: Hira Evans : 1950 Today's Date: October 19, 2023 Age: 73 y.o. male Admission: 10/12/2023 Bed: [id number] LOS: 6 days Subjective Chief complaint: back [...] 50 minutes which was spent performing a zbic-np-bpie encounter and personally completing the provider-level activities documented in the note. This includes time spent prior to the visit and after the visit in direct care of the patient. This time does not include time spent in any separately reportable services. Jimenez Henao MD NT CUTTER * Jimenez Henao MD - 10/18/2023 5:15 PM CST Daily Progress Note Division of Hospital Medicine Name: Hira Evans : 1950 Today's Date: October 18, 2023 Age: 73 y.o. male Admission: 10/12/2023 Bed: [id number] LOS: 5 days Subjective Chief complaint: back [...] 55 minutes which was spent performing a jgsv-ii-bues encounter and personally completing the provider-level activities documented in the note. This includes time spent prior to the visit and after the visit in direct care of the patient. This time does not include time spent in any separately reportable services. Jimenez Henao MD NT CUTTER * Osorio Calle MD - 10/18/2023 6:54 [...] For susceptibility results, refer to accession number [id number] on the urine culture from 10/11/23 MICROBIOLOGY [...] the appropriate orthopaedic surgery team, please use [email or web address] to page resident directly. If questions arise and the appropriate resident can't be reached or you are calling overnight, please contact [phone] ([facility] 7:30 PM - 6:30 AM - Floor Resident) or [phone] (24 hours/day - Consult Resident) Cosigned by Hayder Vu MD at 10/18/2023 12:31 PM CEMENT CUTTER NT CUTTER NT CUTTER * Michelle Harris PA - 10/17/2023 3:10 [...] 10 ml NS TID and record in [facility]. - Appreciate nursing care. Continue daily dressing changes and as needed, if soiled or dislodged. Monitor skin site. - IR to continue to follow. Michelle Harris PA-C Interventional Radiology Available via [employer] Chat M-F 7 AM until 3 PM. IR call pager M-F after 3 PM or on weekends. If the patient does not already have a follow-up appointment arranged, please place order and then please call the [employer] front office help at between 7:30 AM and 4:00 PM. NT CUTTER * Jimenez Henao MD - 10/17/2023 2:46 PM CST Daily Progress Note Division of Hospital Medicine Name: Hira Evans : 1950 Today's Date: October 17, 2023 Age: 73 y.o. male Admission: 10/12/2023 Bed: [id number] LOS: 4 days Subjective Chief complaint: back [...] 60 minutes which was spent performing a twig-ti-nabj encounter and personally completing the provider-level activities documented in the note. This includes time spent prior to the visit and after the visit in direct care of the patient. This time does not include time spent in any separately reportable services. Jimenez Henao MD NT CUTTER * Luciana Dickerson, PT - 10/17/2023 2:21 [...] POC Prior Function Prior Function Level of [place]: Independent functional transfers, Independent with ambulation Lives With: Spouse Receives Help From: Spouse/Significant other (full time babysitter assist as needed) Fall within the last [...] all mobility to allow return to PLOF NT CUTTER * Hayden Youngblood MD - 10/17/2023 8:30 [...] For susceptibility results, refer to accession number [id number] on the urine culture from 10/11/23 MICROBIOLOGY [...] the appropriate orthopaedic surgery team, please use [email or web address] to page resident directly. If questions arise and the appropriate resident can't be reached or you are calling overnight, please contact [phone] ([facility]- 7:30 PM - 6:30 AM - Floor Resident) or [phone] (24 hours/day - Consult Resident) Cosigned by Hayder Vu MD at 10/17/2023 8:47 AM CEMENT CUTTER NT CUTTER NT CUTTER * Hayder Vu MD - 10/17/2023 7:19 [...] questions or concerns. Hayder Vu Jr., MD Chemical Economist Department of Orthopaedic Surgery Division of Spine Surgery [facility] [employer] [place], [place] NT CUTTER NT CUTTER * Jimenez Henao MD - 10/16/2023 12:31 PM CST Daily Progress Note Division of Hospital Medicine Name: Hira Evans : 1950 Today's Date: October 16, 2023 Age: 73 y.o. male Admission: 10/12/2023 Bed: [id number] LOS: 3 days Subjective Chief complaint: back [...] 80 minutes which was spent performing a jfup-ft-mpoj encounter and personally completing the provider-level activities documented in the note. This includes time spent prior to the visit and after the visit in direct care of the patient. This time does not include time spent in any separately reportable services. Jimenez Henao MD NT CUTTER * Collin Barnes MD - 10/16/2023 8:24 [...] 8 hours. -Continue to monitor drainage output. NT CUTTER * Hayden Youngblood MD - 10/16/2023 6:46 [...] For susceptibility results, refer to accession number [id number] on the urine culture from 10/11/23 MICROBIOLOGY [...] the appropriate orthopaedic surgery team, please use [email or web address] to page resident directly. If questions arise and the appropriate resident can't be reached or you are calling overnight, please contact [phone] ([facility] 7:30 PM - 6:30 AM - Floor Resident) or [phone] (24 hours/day - Consult Resident) Cosigned by Hayder Vu MD at 10/16/2023 7:19 AM CEMENT CUTTER NT CUTTER NT CUTTER * Marquise Lim MD - 10/15/2023 8:52 AM CST Daily Progress Note Division of Hospital Medicine Name: Hira Evans : 1950 Today's Date: October 15, 2023 Age: 73 y.o. male Admission: 10/12/2023 Bed: [id number] LOS: 2 days Subjective Chief complaint: back [...] 80 minutes which was spent performing a ilfl-gg-pxzf encounter and personally completing the provider-level activities documented in the note. This includes time spent prior to the visit and after the visit in direct care of the patient. This time does not include time spent in any separately reportable services. Marquise Lim MD NT CUTTER * Ana Alfaro MD - 10/15/2023 7:20 [...] For susceptibility results, refer to accession number [id number] on the urine culture from 10/11/23 Exam: Left PCN site c/d/i. Assessment and Plan: 73-year old man with partially obstructing left ureteral stone post left PCN placement in 10/14/2023. Continue to flush 10 mL normal saline every 8 hours. Continue to monitor drainage output. NT CUTTER * Hayden Youngblood MD - 10/15/2023 7:07 [...] 5/5 in BUE deltoid, biceps, triceps, WE/WF, liner inserter Sensation Left lower extremity: SILT L2 to [...] For susceptibility results, refer to accession number [id number] on the urine culture from 10/11/23 MICROBIOLOGY [...] the appropriate orthopaedic surgery team, please use [email or web address] to page resident directly. If questions arise and the appropriate resident can't be reached or you are calling overnight, please contact [phone] ([facility]- 7:30 PM - 6:30 AM - Floor Resident) or [phone] (24 hours/day - Consult Resident) Cosigned by Hayder Vu MD at 10/15/2023 8:54 AM CEMENT CUTTER NT CUTTER NT CUTTER Associated attestation - Hayder Vu Jr., MD - 10/15/2023 8:54 AM CEMENT CUTTER Attending Attestation I have seen and examined [...] of Mr. Evans. Hayder Vu Jr., MD Chemical Economist Department of Orthopaedic Surgery Division of Spine Surgery [facility] [employer] [facility], [place] Indexer done by [employer]; therefore, variances and [...] For susceptibility results, refer to accession number [id number] on the urine culture from 10/11/23 MICROBIOLOGY [...] the appropriate orthopaedic surgery team, please use [email or web address] [email or web address] to page resident directly. If questions arise and the appropriate resident can't be reached or you are calling overnight, please contact [phone] ([facility] 7:30 PM - 6:30 AM - Floor Resident) or [phone] (24 hours/day - Consult Resident) Cosigned by Hayder Vu MD at 10/15/2023 9:21 AM CEMENT CUTTER NT CUTTER NT CUTTER NT CUTTER Associated attestation - Hayder Vu Jr., MD - 10/15/2023 9:21 AM CEMENT CUTTER I agree with the resident's note with [...] Age: 73 y.o. male Admission: 10/12/2023 Bed: [id number] LOS: 1 days Subjective Chief complaint: fever+chills [...] 70 minutes which was spent performing a xomd-qk-nuui encounter and personally completing the provider-level activities documented in the note. This includes time spent prior to the visit and after the visit in direct care of the patient. This time does not include time spent in any separately reportable services. Marquise Lim MD NT CUTTER * Marquise Lim MD - 10/13/2023 7:43 AM CST Daily Progress Note Division of Hospital Medicine Name: Hira Evans : 1950 Today's Date: October 13, 2023 Age: 73 y.o. male Admission: 10/12/2023 Bed: [id number] LOS: 0 days Subjective Chief complaint: Sepsis [...] : / Supplementary Attestation Marquise Lim MD NT CUTTER documented in this encounter H&P Notes * [...] tablet (10 mg total) by mouth glass or mirror inspector before breakfast cholecalciferol (VITAMIN D-3) 5,000 unit capsule Take 1 capsule (5,000 Units total) by mouth every morning coenzyme Q10 100 mg capsule Take 1 capsule (100 mg total) by mouth glass or mirror inspector before breakfast DILT-XR 240 mg 24 hr capsule Take 1 capsule (240 mg total) by mouth 2 (two) times a day 0 fish,bora,flax oils-om3,6,9no1 400-400-400 mg capsule Take 1 tablet by mouth glass or mirror inspector before breakfast irbesartan (AVAPRO) 300 mg tablet [...] Arceo Jr., MD at 10/24/2023 5:52 AM CEMENT CUTTER NT CUTTER NT CUTTER Associated attestation - Wilder Arceo Jr., MD - 10/24/2023 5:52 AM CEMENT CUTTER Critical Care Time: I have spent 75 [...] plan with the ICU team and other medical/small business consultant staff. Wilder Arceo Jr., MD * [...] for OR today from a medical standpoint. NT CUTTER NT CUTTER Source Note - Severo Merlos MD - 10/13/2023 5:00 AM CEMENT CUTTER History and Physical Division of [facility] Medicine Name: Hira Evans : 1950 Today's Date: October 13, 2023 Age: 73 y.o. male Admit Date: 10/12/2023 Bed: [id number] LOS: 0 days Subjective Hira Evans is [...] tablet (10 mg total) by mouth glass or mirror inspector before breakfast cholecalciferol (VITAMIN D-3) 5,000 unit capsule Take 1 capsule (5,000 Units total) by mouth every morning coenzyme Q10 100 mg capsule Take 1 capsule (100 mg total) by mouth glass or mirror inspector before breakfast DILT-XR 240 mg 24 hr capsule Take 1 capsule (240 mg total) by mouth 2 (two) times a day fish,bora,flax oils-om3,6,9no1 400-400-400 mg capsule Take 1 tablet by mouth glass or mirror inspector before breakfast irbesartan (AVAPRO) 300 mg tablet [...] 60 minutes which was spent performing a gnci-et-ahur encounter and personally completing the provider-level activities documented in the note. This includes time spent prior to the visit and after the visit in direct care of the patient. This time does not include time spent in any separately reportable services. Severo Merlos MD NT CUTTER * Gabriel Bennett MD - 10/18/2023 9:06 AM CST I have reviewed the H&P, examined the patient, and endorse the findings as written. Plan of Care : Based on the above findings, I consider Hira Evans to be an acceptable risk for : Procedure(s): CYSTOSCOPY PYELOGRAM - RETROGRADE LITHOTRIPSY - LASER URETEROSCOPY NT CUTTER Source Note - Fredrick Mcneil MD - 10/12/2023 10:45 PM CEMENT CUTTER Images from the original note were not [...] to concerning symptoms, he was transferred to [facility] ED for further workup. Patient's reports [...] or concerns, please page Urology through the roller leveler operator. Vero Tolentino MD 10/12/2023 NT CUTTER NT CUTTER NT CUTTER * Severo Merlos MD - 10/13/2023 5:00 AM CST History and Physical Division of [facility] Medicine Name: Hira Evans : 1950 Today's Date: October 13, 2023 Age: 73 y.o. 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 Gastric reflux GERD [...] tablet (10 mg total) by mouth glass or mirror inspector before breakfast cholecalciferol (VITAMIN D-3) 5,000 unit capsule Take 1 capsule (5,000 Units total) by mouth every morning coenzyme Q10 100 mg capsule Take 1 capsule (100 mg total) by mouth glass or mirror inspector before breakfast DILT-XR 240 mg 24 hr capsule Take 1 capsule (240 mg total) by mouth 2 (two) times a day fish,bora,flax oils-om3,6,9no1 400-400-400 mg capsule Take 1 tablet by mouth glass or mirror inspector before breakfast irbesartan (AVAPRO) 300 mg tablet [...] 60 minutes which was spent performing a wghd-qb-trit encounter and personally completing the provider-level activities documented in the note. This includes time spent prior to the visit and after the visit in direct care of the patient. This time does not include time spent in any separately reportable services. Severo Merlos MD NT CUTTER documented in this encounter Procedure Notes * [...] plan with the patient's team and other medical/small business consultant staff. This time was in addition to and separate from care provided by other practitioners on this day of service. NT CUTTER * Wilder Arceo Jr., MD - 10/24/2023 [...] plan with the ICU team and other medical/small business consultant staff, making frequent assessments and decisions [...] hemorrhage, Acute pain/acute postoperative pain and Seizure Cwd-FN-Gxdfvrqns mycardial infarction (Non-STEMI) and Cardiac arrest Hypo- [...] spent time documenting in the medical record NT CUTTER * Wilder Arceo Jr., MD - 10/23/2023 [...] plan with the ICU team and other medical/small business consultant staff, making frequent assessments and decisions [...] spent time documenting in the medical record NT CUTTER documented in this encounter Consult Notes * Yumiko Rome MD - 10/28/2023 9:48 AM CSTAssociated Order(s): IP CONSULT TO NEUROSURGERY Neurosurgery Consultation Patient: Hira Evans CSN: [id number] : 1950 Admission date: 10/12/2023 Length of [...] open L4-5 posterior [facility] and allograft). Postprocedure, [...] His , Neelima, can be reached at [phone] Family history: Reviewed and noncontributory. Physical Examination: [...] discussed with the chief resident and attending firmware software verification engineer. The patient was evaluated within 30 minutes of consultation Yumiko Rome MD Cosigned by Jeremy Mojica MD at 10/30/2023 3:48 PM CEMENT CUTTER NT CUTTER NT CUTTER NT CUTTER Associated attestation - Jeremy Mojica MD - 10/30/2023 3:48 PM CEMENT CUTTER I have seen and examined the patient [...] 73 y.o. male Admit Date: 10/12/2023 Bed: [id number] LOS: 13 days Subjective HPI 73 year [...] tablet (10 mg total) by mouth glass or mirror inspector before breakfast cholecalciferol (VITAMIN D-3) 5,000 unit capsule Take 1 capsule (5,000 Units total) by mouth every morning coenzyme Q10 100 mg capsule Take 1 capsule (100 mg total) by mouth glass or mirror inspector before breakfast DILT-XR 240 mg 24 hr capsule Take 1 capsule (240 mg total) by mouth 2 (two) times a day fish,bora,flax oils-om3,6,9no1 400-400-400 mg capsule Take 1 tablet by mouth glass or mirror inspector before breakfast irbesartan (AVAPRO) 300 mg tablet [...] Medicine Consults will sign off. Please call [phone] for further questions. Viry Patterson MD Cosigned by Ryan London MD at 10/26/2023 5:20 PM CEMENT CUTTER NT CUTTER NT CUTTER Associated attestation - Ryan London MD - 10/26/2023 5:20 PM CEMENT CUTTER Attending Documentation I have seen and examined [...] mg/mL injection - ADS Override Pull multivit egxpdqsc-xdde-CI-calcium (THERA-M) tablet 1 tablet 1 tablet oral [...] unlikely the patient will require anti-seizure medication assisted, but it is reasonable to continue AEDs [...] will decide whether he needs this medication assisted depending on the workup. Thank you for this consult. Neurology Consult Call Back: [phone] (senior phone). Please do nothesitate to contact us with any questions or concerns, and specify that this consult was staffed with consult team A. Zaheer Bennett MD, PHD Neurology Resident, PGY-2 10/24/2023 1:15 AM Cosigned by Steve Funk MD PhD at 10/24/2023 10:51 PM CEMENT CUTTER NT CUTTER NT CUTTER NT CUTTER NT CUTTER Associated attestation - Steve Funk MD PhD - 10/24/2023 10:51 PM CEMENT CUTTER I have seen and examined the patient [...] to concerning symptoms, he was transferred to [facility] ED for further workup. Patient's reports [...] or concerns, please page Urology through the roller leveler operator. Vero Tolentino MD 10/12/2023 NT CUTTER NT CUTTER NT CUTTER * Hayden Youngblood MD - 10/12/2023 7:22 [...] tablet (10 mg total) by mouth glass or mirror inspector before breakfast Fidelia Perdue MD cholecalciferol (VITAMIN D-3) 5,000 unit capsule Take 1 capsule (5,000 Units total) by mouth every morning Fidelia Perdue MD coenzyme Q10 100 mg capsule Take 1 capsule (100 mg total) by mouth glass or mirror inspector before breakfast Fidelia Perdue MD DILT-XR 240 mg 24 hr capsule Take 1 capsule (240 mg total) by mouth 2 (two) times a day 05/12/19 Fidelia Perdue MD fish,bora,flax oils-om3,6,9no1 400-400-400 mg capsule Take 1 tablet by mouth glass or mirror inspector before breakfast Fidelia Perdue MD irbesartan (AVAPRO) [...] times a day as needed (Pain) Fidelia Perdeu MD omeprazole (PriLOSEC) 20 mg capsule Take [...] extension 5/5 5/5 Wrist flexion 5/5 5/5 Stencil Printer 5/5 5/5 Interosseous of hand 5/5 5/5 [...] M.D., Ph.D. Department of Orthopaedic Surgery, PGY-2 [facility] in [facility] Please use [employer] to page/call the appropriate Orthopaedic Surgery Team/Resident if questions or concerns. Normal business hours: If you know the resident's name on the appropriate orthopaedic surgery team,please use the Directory Search at [employer] to page resident directly. If questions arise and the appropriate resident can't be reached or you are calling overnight, please contact [phone] ([facility]- 7:30 PM - 6:30 AM - Floor Resident) or [phone] (24 hours/day - Consult Resident) Cosigned by Hayder Vu MD at 10/14/2023 10:41 PM CEMENT CUTTER NT CUTTER NT CUTTER documented in this encounter Nursing Notes * Sherice Wilcox RN - 10/24/2023 1:21 AM CST Fredrick MACKEY [place] [address] in anticipation of admission to our unit.Post op, patient went to ICU. AN brought bag of patient belongings to current room 4401. NT CUTTER * Nolvia Gonzales RN - 10/23/2023 10:20 [...] Anesthesia at bedside tobring patient to ICU. NT CUTTER * Fredrick Sheffield RN - 10/23/2023 7:04 PM CST Patient belongings (blanket, jacket, shoes, mirror, shirt, pajama pants) brought to unit [address], where patient is transferring. Entire room searched for belongings, all belongings found in [place] [address]. NT CUTTER * Frieda Cai RN - 10/18/2023 6:14 PM CST Patient went to surgery today and got a stent place, the catheter was changed during surgery. No drainage or leakage around the harris cath noted. NT CUTTER * Ad Parikh RN - 10/16/2023 3:01 PM CST Assumed care for patient at 1500. This Rn agrees with previous RN's assessment. Patient A&ox4 and resting in bed. Will continue to monitor. NT CUTTER * Adia Poole RN - 10/15/2023 7:44 [...] needs, and inagreement with bedside shift report. NT CUTTER documented in this encounter ED Notes * Justice Vivas RN - 10/12/2023 6:25 PM CST Bed: ED1-14 Expected date: Expected time: Means of arrival: Car Comments: Justice Vivas RN 10/12/23 6236 NT CUTTER * Amol Hargrove MD - 10/12/2023 6:22 [...] E coli. Patient was sent to the [facility] ED at the instruction of Dr. [...] rhinitis Arthritis OA Cancer (CMS/HCC) ([facility]) prostate and melonomia Gastric reflux GERD (gastroesophageal [...] of Care ED Course as of 10/12/23 1152 Time: 10/12 1840 Comment: Attending physician assessment [...] Rafael Cowan MD at 10/14/2023 12:05 AM CEMENT CUTTER NT CUTTER NT CUTTER Associated attestation - Rafael Cowan MD - 10/14/2023 12:05 AM CEMENT CUTTER I have seen and examined the patient [...] spinal surgery on Sunday. Reports malodorous urine. NT CUTTER documented in this encounter Miscellaneous Notes * Provider Query - Hayder Vu MD - 10/30/2023 4:07 PM CEMENT CUTTER Greetings Dr. Vu Please clarify if sepsis [...] medical record. Sincerely, Boaz Harris [facility] Information Management NT CUTTER * Provider Query - Hayder Vu MD - 10/30/2023 4:07 PM CEMENT CUTTER Greetings Dr. Vu, Both respiratory failure and [...] medical record. Sincerely, Boaz Harris [facility] Information Management NT CUTTER * Plan of Care - Nathalie Herrera RN - 10/30/2023 2:38 PM CST Residential ([facility]) Home Health unable to accept due to insurance. Referrals sent to remaining home health agencies that serve patient's zip code: [facility]---unable to accept due to staffing limitations [facility]----no longer open [facility]---unable to accept due to staffing limitations [facility]---unable to accept due to insurance. [facility]--unable to accept due to staffing limitations [facility]--unable to accept due to insurance. At this time, all home health agency options have been exhausted. Unable to secure home health therapy. Called patient's spouse Cynda to update. No further case management needs identified at this time NT CUTTER NT CUTTER NT CUTTER NT CUTTER * Plan of Care - Matilda Gonzales [...] Declined PRN pain med for trip home. NT CUTTER * Plan of Care - Nathalie Herrera RN - 10/30/2023 1:21 PM CST Residential ([facility]) Home Health has accepted patient pending insurance [...] to accept. Will contact patient's Cynda at [phone] if and when home health is secured. NT CUTTER * Plan of Care - Nathalie Herrera RN - 10/30/2023 9:29 AM CST [facility] unable to accept. NT CUTTER * Plan of Care - Suzanne Mendoza [...] health care needs will improve Outcome: Progressing NT CUTTER * Plan of Care - Matilda Gonzales [...] up. EPC used for sacral chaffing. Several firmware software verification engineer residents notified regarding drain which accidentally came out during care. NT CUTTER * Plan of Care - Suzanne Mendoza [...] Goal: Pain level will decrease Outcome: Progressing NT CUTTER * Plan of Care - Erick Melchor [...] 1610 by Erick Melchor RN Outcome: Progressing NT CUTTER * Plan of Care - Ritu Marin [...] pain meds. VS and drain output documented. NT CUTTER * Significant Event - Viry Pattersno MD - 10/26/2023 5:11 PM CST Medicine [...] Medicine Consults will sign off. Please call [phone] for further questions. Viry Patterson MD PGY3 Internal Medicine NT CUTTER * Assessment & Plan Note - Viry Patterson MD - 10/26/2023 5:11 PM CEMENT CUTTER Associated Problem(s): Pulmonary embolism (HCC) Patient with new PE on CT PE 10/23. Tolerating heparin gtt. Likely provoked in setting of recent surgery. - Patient will need at least 3 months of anticoagulation, and can follow up with PCP for consideration of discontinuation - If no other surgical interventions planned at this time, can transition to therapeutic Lovenox vsEliquis per primary team. NT CUTTER * Plan of Care - Luana Savage RN - 10/26/2023 2:49 PM CST Per Medical Chart/Rounds/IDR: Per IDR rounds with Speedboat Driver, Quenching Machine Operator, Charge Nurse, and MD, the [...] assistance, please check the treatment team in [facility] for the assigned correctional case manager or contact the weekend Case Management phone NT CUTTER * Plan of Care - Harvey Horn [...] 2.5L via nasal cannula. Repositioned for comfort. NT CUTTER NT CUTTER * Significant Event - Tia Nolan NP - 10/25/2023 8:13 PM CEMENT CUTTER CHUGG-OUT (SICU to OU/Floor Transfer) SICU MD [...] Ruano of the ortho service. QUESTIONS? Call [phone] ([phone]). NT CUTTER * Consults, Subsequent - James Silva MD [...] provide their number in the discharge instructions: [phone] The neurology consult service will sign off at this time. Please call the neurology consult phone at [phone] (Senior) with questions. James Silva MD Neurology resident PGY-3 NT CUTTER * Plan of Care - Tamia Holman RN - 10/25/2023 10:41 AM CST Goals: Clinical Goals for the Shift: VSS, pending MRI, pain control, continue heparin drip, PM labs Summary: Plans for the day, pain control, VSS, labs/monitor hepain gtt, MRI pending. 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 Phan stated that they have a good support system. Do you have a Zoroastrian Preference or Affiliation?: No Are there any Zoroastrian Practices that are important to maintain while [...] More than three times a week Attends Zoroastrian Services: Never Active Member of Clubs or [...] including surrogate decision makers, durable power of rhinestone setter, and advanced directives. Patient has a POA [...] CM following for discharge planning. GEN Medina, SHIP'S MASTER NT CUTTER * Significant Event - Nasir Manzanares MD - 10/23/2023 10:14 PM CEMENT CUTTER At the end of the OR case, [...] Hayder Vu MD at 10/23/2023 11:31 PM CEMENT CUTTER NT CUTTER NT CUTTER Associated attestation - Hayder Vu Jr., MD - 10/23/2023 11:31 PM CEMENT CUTTER Upon transfer to PACU, patient was noted [...] to follow closely. Hayder Vu Jr., MD Chemical Economist Department of Orthopaedic Surgery Division of Spine Surgery [facility] [place], [place] * Op Note - Hayder Vu MD - 10/23/2023 5:14 PM CST Operative Report Surgeon Hayder Vu MD Hoop Maker Machine(s) Nasir Manzanares MD Anesthesia General endotracheal. Preoperative [...] of the L5 spinous process. A lamina photo mask processor was placed between the remainder of the [...] placed under fluoroscopic guidance. A Globus Sable [id number] 7-14mm 15 Deg lordo tic cage was [...] obstruction. The decompression was confirmed with a [place] elevator which was able to be passed [...] Implant Name Type Inv. Item Serial No. Oil Filters Inspector Lot No. LRB No. Used Action ALLOSOURCE Crushed Chip Frozen Graft 30ml Bone Cancellous [id number] - [id number] ALLOSOURCE CrushedChip Frozen Graft 30ml Bone Cancellous [id number] Allosource [id number] N/A 1 Implanted Analyze Re Allograft Bone Putty 2.5CC 700-025 - [id number] Analyze Re Allograft Bone Putty2.5CC 700-025 [employer] [id number] N/A 1 Implanted [employer] Creo Od7.5 Mm L55 Mm Thread Polyaxial Spine Screw Bone Titanium 5146.1757 - [id number] [employer] Creo Od7.5 Mm L55 Mm Thread Polyaxial Spine Screw Bone Titanium 5146.1757 [employer] N/A 1 Implanted [employer] Creo Od7.5 Mm L50 Mm Thread Polyaxial Spine Screw Bone Titanium 5146.1752 - [id number] [employer] Creo Od7.5 Mm L50 Mm Thread Polyaxial Spine Screw Bone Titanium 5146.1752 [employer] N/A 3 Implanted [employer] Creo Thread Spinal Cap Locking Nonsterile 1119.0010 - [id number] [employer] Creo Thread Spinal Cap Locking Nonsterile 1119.0010 [employer] N/A 4 Implanted [employer] Implant Spinal Sable [id number] 7-14mm 15 Deg 1172.2121S - [id number] [employer] Implant Spinal Sable [id number] 7-14mm 15 Deg 1172.2121S [employer] N/A 1 Implanted [employer] Creo 5.5mm 45mm Curve Daniel Spinal Titanium 1119.7045 - [id number] [employer] Creo 5.5mm 45mm Curve Daniel Spinal Titanium 1119.7045 [employer] N/A 2 Implanted Specimens None. Counts Correct. Estimated Blood Loss 150 mL. Total IV Fluids 1500 mL. Complications None. Condition on Discharge from OR Stable. Hayder Vu Jr., MD Chemical Economist Department of Orthopaedic Surgery Division of Spine Surgery [facility] [place], [place] Operative Report dictated by Hayder Vu MD on 10/26/23 using Fluency Direct. Transcriptionvariances may occur. NT CUTTER NT CUTTER NT CUTTER * Brief Op Note - Nasir Manzanares MD - 10/23/2023 5:14 PM CST Operative Progress Note Surgical Team: Surgeon(s) and Role: * Hayder Vu MD - Primary * Nasir Manzanares MD - Resident - Assisting Anesthesiologist: Ann Salazar MD SENIOR ADMINISTRATOR SUPPORT: Deisy Snyder CRNA Motion Picture Printer: Alice Vaughn MD Postal Inspector: Yeni Walker RN; Rena Michelle RN Scrub Relief: Sergio-Bibiana, Rad, ST Scrub: eTo Stiles ST Coil Winder: Belen Valdez [place] FLOAT: Oneyda Foley NP [...] Implant Name Type Inv. Item Serial No. Oil Filters Inspector Lot No. LRB No. Used Action [employer]OSOURCE Crushed Chip Frozen Graft 30ml Bone Cancellous [id number] - [id number] ALLOSOURCE CrushedChip Frozen Graft 30ml Bone Cancellous [id number] Allosource [id number] N/A 1 Implanted [employer] Allograft Bone Putty 2.5CC 700-025 - [id number] [employer] Allograft Bone Putty2.5CC 700-025 [employer] Inc [id number] N/A 1 Implanted [employer] Creo Od7.5 Mm L55 Mm Thread Polyaxial Spine Screw Bone Titanium 5146.1757 - [id number] [employer] Creo Od7.5 Mm L55 Mm Thread Polyaxial Spine Screw Bone Titanium 5146.1757 Globus Medical N/A 1 Implanted [employer]LO[employer] Creo Od7.5 Mm L50 Mm Thread Polyaxial Spine Screw Bone Titanium 5146.1752 - [id number] [employer] Creo Od7.5 Mm L50 Mm Thread Polyaxial Spine Screw Bone Titanium 5146.1752 Globus [employer] N/A 3 Implanted [employer] Creo Thread Spinal Cap Locking Nonsterile 1119.0010 - [id number] [employer] Creo Thread Spinal Cap Locking Nonsterile 1119.0010 Gl[employer] N/A 4 Implanted [employer] Implant Spinal Sable 02q06bp 7-14mm 15 Deg 1172.2121S - [id number] [employer] Implant Spinal Sable 82x06ro 7-14mm 15 Deg 1172.2121S [employer] Medical N/A 1 Implanted [employer] Creo 5.5mm 45mm Curve Daniel Spinal Titanium 1119.7045 - [id number] [employer] Creo 5.5mm 45mm Curve Daniel [...] Hayder Vu MD at 10/26/2023 12:57 PM CEMENT CUTTER NT CUTTER NT CUTTER * Plan of Care - Stefany Crook RN - 10/23/2023 12:06 AM CST Problem: Safety: Goal: Will remain free from falls Outcome: Progressing Goals: Clinical Goals for the Shift: VSS, pain management, safety and comfort Summary: NT CUTTER * Plan of Care - Lisa Rudolph [...] Goal: Pain level will decrease Outcome: Progressing NT CUTTER * Plan of Care - Lana Turcios [...] VSS, pain management, safety and comfort Summary: NT CUTTER * Plan of Care - Harmony Norman [...] Goal: Pain level will decrease Outcome: Progressing NT CUTTER * Plan of Care - Johnnie Flores [...] with VS WNL, pain free, and safe. NT CUTTER * Plan of Care - Brandyn Cain [...] Shift: VS WNL, pain control and safety. NT CUTTER * Plan of Care - Johnnie Flores [...] pain was under control with prn medication. NT CUTTER * Consults, Subsequent - Vero Tolentino MD - 10/19/2023 10:01 AM CEMENT CUTTER Images from the original note were not [...] or concerns, please page Urology through the roller leveler operator. Vero Tolentino MD 10/19/2023 Cosigned by Fredrick Mcneil MD at 10/19/2023 10:25 AM CEMENT CUTTER NT CUTTER NT CUTTER * Plan of Care - Brandyn Cain [...] Goal: Pain level will decrease Outcome: Ongoing NT CUTTER * Plan of Care - Frieda Cai [...] unmanageable or unbearable will improve Outcome: Progressing NT CUTTER * Plan of Care - Torey Mckenna RN - 10/18/2023 3:26 PM CST Per Medical Chart/Rounds/DCAM: IDR ADD: TBD Plan & referrals made/in place: [facility] [place] [place] Patient went to OR with urology [...] Patient and/or family are agreeable with plan. apartment maintenance manager will continue to follow and assist with discharge planning as needed. If any further discharge needs arise, please contact the covering correctional case manager. NT CUTTER * Consults, Subsequent - Vero Tolentino MD - 10/18/2023 3:15 PM CEMENT CUTTER Images from the original note were not [...] or concerns, please page Urology through the roller leveler operator. Vero Tolentino MD 10/18/2023 Cosigned by Gabriel Bennett MD at 10/18/2023 6:54 PM CEMENT CUTTER NT CUTTER NT CUTTER NT CUTTER Associated attestation - Gabriel Bennett MD - 10/18/2023 6:54 PM CEMENT CUTTER I have seen and examined the patient [...] [facility] NT CUTTER * Plan of Care - Rosi Fernandes MD - 10/18/2023 11:19 AM CEMENT CUTTER Mr. Evans is a 73 yo male [...] from 6:00 to 18:00 (Sunday-Sunday), please call [phone].If you want to contact Urology consults after hours (18:00 to 6:00) and over the weekend, please call the roller leveler operator. Cosigned by Gabriel Bennett MD at 10/18/2023 3:59 PM CEMENT CUTTER NT CUTTER NT CUTTER * Op Note - Gabriel Bennett MD - 10/18/2023 8:45 AM CST OPERATIVE REPORT SURGEON Gabriel Bennett M.D. MARBLE SETTER HELPER Vero Tolentino MD ANESTHESIA General. PREOPERATIVE DIAGNOSIS [...] ensure proper patient and proper procedure. A 23-Citizen Of [place] rigid cystoscope was introduced into the urethra [...] present and participated in the entire procedure. NT CUTTER * Plan of Care - Christal García [...] Goal: Pain level will decrease Outcome: Progressing NT CUTTER * Plan of Care - Lisa Rudolph [...] unmanageable or unbearable will improve Outcome: Progressing NT CUTTER * Consults, Subsequent - Vero Tolentino MD - 10/17/2023 11:41 AM CEMENT CUTTER Images from the original note were not [...] or concerns, please page Urology through the roller leveler operator. Vero Tolentino MD 10/17/2023 Cosigned by Maris Montilla MD at 10/18/2023 9:04 AM CEMENT CUTTER NT CUTTER NT CUTTER * Plan of Care - Stacy Tim [...] keep pt free from injury and comfortable NT CUTTER * Plan of Care - Rebecca Lozano [...] Activity: Goal: Mobility will improve Outcome: Progressing NT CUTTER * Plan of Care - Dionne Palafox [...] medications given withpartial relief. Vital signs stable. NT CUTTER * Plan of Care - Lana Turcios [...] q 8 hours, pain management, encourage activity NT CUTTER * Assessment & Plan Note - Jimenez Henao MD - 10/15/2023 9:06 AM CEMENT CUTTER Associated Problem(s): Left perinephric collection, 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 Likely post procedure complication. Urology following - CT urogram on 10/16 notes presence of L perinephric hematoma - Continue to trend white count, renal function and fever curve NT CUTTER NT CUTTER NT CUTTER * Consults, Subsequent - Vero Tolentino MD - 10/15/2023 6:38 AM CEMENT CUTTER Images from the original note were not [...] was obtained. Prior to beginning the procedure, [place] Protocol was performed to confirm the patient's [...] or concerns, please page Urology through the roller leveler operator. Vero Tolentino MD 10/14/2023 Cosigned by Fredrick Mcneil MD at 10/17/2023 5:10 PM CEMENT CUTTER NT CUTTER NT CUTTER NT CUTTER * Plan of Care - Lyn Tolliver [...] Provided comfort and safety. Nephrostomy dressing changed. NT CUTTER * Plan of Care - Sue Allison [...] pressure high, MD notified. Patient resting comfortably. NT CUTTER * Post-Procedure Note - Ana Alfaro MD - 10/14/2023 1:46 PM CST Radiology Brief Post Procedure Note Attending: Dr. Hughes [employer] Recreational Facilities Manager: Dr. Alfaro Sedation/Anesthesia: Min Sedation Pre-Op/Pre-Procedure Diagnosis: Hydronephrosis Post-Op/Post-Procedure Diagnosis: Mild hydronephrosis with blood clots in the collecting system andmoderate hydroureter Procedure Performed: Right percutaneous PCN placement Procedure Findings: Successful PCN placement Complications: None Estimated Blood Loss: < 30 ml Specimens: 10 ml aspirate sent to the lab Condition: Stable Full report to follow. NT CUTTER * Pre-Procedure Note - Ana Alfaro MD [...] (premix) 2,000 mg, 2,000 mg, intravenous, Q24H [facility], Severo Merlos MD, 2,000 mg at [...] flush 0.5-20 mL, 0.5-20 mL, intra-catheter, Q8H [facility], Ana Alfaro MD, 10 mL at 10/14/23 0636 sodium chloride 0.9% flush 0.5-20 mL, 0.5-20 mL, intra-catheter, PRN, Ana Alfaro MD sodium chloride 0.9% infusion, 75 mL/hr, intravenous, Continuous, [facility], Last Rate: 75 mL/hr at [...] discussed with the patient and/or their customer retention representative. All questions answered and they agree to proceed. NT CUTTER NT CUTTER * Plan of Care - Lyn Tolliver [...] Observed Strict intake and output. Monitored hematuria. NT CUTTER * Consults, Subsequent - Vero Tolentino MD - 10/13/2023 5:57 PM CEMENT CUTTER Images from the original note were not [...] or concerns, please page Urology through the roller leveler operator. Vero Tolentino MD 10/13/2023 Cosigned by Fredrick Mcneil MD at 10/13/2023 11:37 PM CEMENT CUTTER NT CUTTER NT CUTTER NT CUTTER * Initial Assessments - Torey Mckenna RN - 10/13/2023 2:42 PM CEMENT CUTTER CM Initial Assessment Interview Note Information Obtained From: Patient (10/13/231439) in the room Admission Source: from ED Impression: 73 yo male admitted for UTI. Plan Includes: to establish a safe discharge plan Primary Source of Transportation: Does the patient need discharge transport arranged?: (unknown, as DC location unknown) (10/13/231439) Health Insurance Coverage: [employer] Medicare Prescription Coverage: yes Pharmacy: [facility] [address] [place] [address] [phone] [id number] [address] [facility] [id number] Primary Care Provider: Rl Medina DO Prior [...] Collaboration with patient, MD, direct care nurse, Quenching Machine Operator, and other members of the health care team to assure needed interventions completed. 2. Return patient to optimal level of self-care post discharge. 3. Speedboat Driver will follow for Discharge Planning - interventions [...] with the aftercare plan. Torey Mckenna RN NT CUTTER * Hospital Course - [facility], Jimenez Dan MD - 10/13/2023 2:42 PM CEMENT CUTTER Hira Evans is a 73 y.o. male [...] ortho, his surgery as postponed to 10/23. NT CUTTER NT CUTTER NT CUTTER NT CUTTER NT CUTTER NT CUTTER NT CUTTER NT CUTTER NT CUTTER NT CUTTER NT CUTTER * Plan of Care - Js Cardenas [...] medicine. Pt currently NPO. Family at bedside. NT CUTTER * Post-Procedure Note - Ana Alfaro MD - 10/13/2023 9:46 AM CST Radiology Brief Post Procedure Note Attending: Dr. Mar Hotel Recreational Facilities Manager: Dr. Alfaro Sedation/Anesthesia: Min Sedation Pre-Op/Pre-Procedure Diagnosis: Hydroureteronephrosis with an obstructing stone Post-Op/Post-Procedure Diagnosis: Same Procedure Performed: Attempted PCN placement Procedure Findings: Non-dilated calyces with contrast washing down the ureter. Complications: None Estimated Blood Loss: None Specimens: None Condition: Stable Full report to follow. NT CUTTER * Pre-Procedure Note - Ana Alfaro MD [...] Diagnosis Date Allergic rhinitis Arthritis OA Cancer ([facility]) (HCC) prostate and melonomia Gastric reflux GERD [...] discussed with the patient and/or their customer retention representative. All questions answered and they agree to proceed. NT CUTTER * Assessment & Plan Note - Severo Merlos MD - 10/13/2023 5:39 AM CEMENT CUTTER Associated Problem(s): Prostate cancer (HCC) S/p postprostatectomy NT CUTTER * Assessment & Plan Note - Marquise Lim MD - 10/13/2023 5:36 AM CEMENT CUTTER Associated Problem(s): HTN (hypertension) Hold home irbesartan Restart diltiazem xl NT CUTTER NT CUTTER NT CUTTER * Assessment & Plan Note - Jimenez Henao MD - 10/13/2023 5:36 AM CEMENT CUTTER Associated Problem(s): Hydronephrosis with urinary obstruction due [...] though OK to de-escalate to oral regimen NT CUTTER NT CUTTER NT CUTTER NT CUTTER NT CUTTER NT CUTTER NT CUTTER NT CUTTER NT CUTTER NT CUTTER NT CUTTER NT CUTTER NT CUTTER NT CUTTER NT CUTTER * Assessment & Plan Note - Jimenez Henao MD - 10/13/2023 5:36 AM CEMENT CUTTER Associated Problem(s): Lumbar radiculopathy He has been [...] every 4 hours Surgery rescheduled to 10/23/23 NT CUTTER NT CUTTER NT CUTTER NT CUTTER NT CUTTER NT CUTTER * Assessment & Plan Note - Jimenez Henao MD - 10/13/2023 5:35 AM CEMENT CUTTER Associated Problem(s): UTI (urinary tract infection) - Complicated UTI with the presence of left ureteral stone and Pyelitis - urine culture grew E-coli which is pansusceptible. - Discussion with urology and orthopedic surgery: continue Keflex 500 mg q6hr as it appears patientwill stay in-house until OR on 10/22-10/23 -Antibiotics as above. NT CUTTER NT CUTTER NT CUTTER NT CUTTER NT CUTTER NT CUTTER * Plan of Care - Silvana Man [...] new admit orders/call light,bed controls,meal times,televisions controls. NT CUTTER * Perioperative Nursing Note - Philip Ha RN - 10/13/2023 3:41 AM CEMENT CUTTER Pt is being signed out by Anesthesia. NT CUTTER * Op Note - Fredrick Mcneil MD [...] Consult IR for left nephrostomy tube placement NT CUTTER * ED Re-evaluation Note - Genaro Chavira MD - 10/12/2023 11:05 PM CEMENT CUTTER ED Re-evaluation TRANSITION OF CARE: Genaro Dixon [...] MD Kurtz, Camden Emmett, MD Resident 10/12/23 7086 NT CUTTER documented in this encounter Plan of Treatment Pending Results Name Type Priority Associated Diagnoses Date /Time Erythrocyte sedimentation rate Lab STAT 10/12/2023 7:50 PM CEMENT CUTTER CRP (acute phase) Lab STAT 023 7:50 PM CEMENT CUTTER Basic metabolic panel Lab Routine 7:06 PM CEMENT CUTTER Phosphorus Lab Routine 10/29/2023 9:5 3 PM CEMENT CUTTER Magnesium Lab Routine 10/29/2023 9:5 3 PM CEMENT CUTTER Scheduled Orders Name Type Priority Associated Diagnoses [...] 3 VIEWS Pending Discharge 10/30/2023 9:49 AM CEMENT CUTTER EGFR Routine 10/29/2023 9:53 PM CEMENT CUTTER DIFFERENTIAL AUTO Routine 10/29/2023 9:5 3 PM CEMENT CUTTER CBC WITH AUTO DIFFERENTIAL Routine 10/29/2023 9:53 PM CEMENT CUTTER PHOSPHORUS Routine 10/29/2023 9:53 PM CEMENT CUTTER MAGNESIUM Routine 10/29/2023 9:53 PM CEMENT CUTTER BASIC METABOLIC PANEL Routine 10/29/2023 9:53 PM CEMENT CUTTER EGFR Routine 10/29/2023 4:40 AM CEMENT CUTTER DIFFERENTIAL AUTO Routine 10/29/2023 4:4 0 AM CEMENT CUTTER CBC WITH AUTO DIFFERENTIAL Routine 10/29/2023 4:40 AM CEMENT CUTTER TYPE AND SCREEN Timed 10/29/2023 4:40 AM CEMENT CUTTER PHOSPHORUS Routine 10/29/2023 4:40 AM CEMENT CUTTER MAGNESIUM Routine 10/29/2023 4:40 AM CEMENT CUTTER BASIC METABOLIC PANEL Routine 10/29/2023 4:[address] HEAD WO CONTRAST IP Routine 10/28/2023 5 :58 PM CEMENT CUTTER EGFR Routine 10/27/2023 11:32 PM CEMENT CUTTER DIFFERENTIAL AUTO Routine 10/27/2023 11: 32 PM CEMENT CUTTER CBC WITH AUTO DIFFERENTIAL Routine 10/27/2023 11:32 PM CEMENT CUTTER BASIC METABOLIC PANEL Routine 10/27/2023 11:32 PM CEMENT CUTTER CBC WITHOUT DIFFERENTIAL Timed 10/27/2023 4:37 AM CEMENT CUTTER PHOSPHORUS Routine 10/27/2023 4:37 AM CEMENT CUTTER MAGNESIUM Routine 10/27/2023 4:37 AM CEMENT CUTTER EGFR Routine 10/26/2023 8:07 PM CEMENT CUTTER DIFFERENTIAL AUTO Routine 10/26/2023 8:0 7 PM CEMENT CUTTER CBC WITH AUTO DIFFERENTIAL Routine 10/26/2023 8:07 PM C[facility] C[facility]TER BASIC METABOLIC PANEL Routine 10/26/2023 8:07 PM CEMENT CUTTER EGFR STAT 10/26/2023 5:28 PM CEMENT CUTTER APTT STAT 10/26/2023 5:28 PM CEMENT CUTTER PROTIME-INR STAT 10/26/2023 5:28 PM CEMENT CUTTER CBC WITHOUT DIFFERENTIAL STAT 10/26/2023 5:28 PM CEMENT CUTTER CREATININE STAT 10/26/2023 5:28 PM CEMENT CUTTER DIFFERENTIAL AUTO Timed 10/26/2023 2:4 3 PM CEMENT CUTTER CBC WITH AUTO DIFFERENTIAL Timed 10/26/2023 2:43 PM CEMENT CUTTER APTT STAT 10/26/2023 11:09 AM CEMENT CUTTER TRANSFUSE RED BLOOD CELLS Timed 10/26/2023 10:02 AM CEMENT CUTTER PREPARE RBC Timed 10/26/2023 4:46 AM CEMENT CUTTER TRANSFUSE RED BLOOD CELLS Timed 10/26/2023 3:55 AM CEMENT CUTTER PREPARE RBC Timed 10/26/2023 3:03 AM CEMENT CUTTER APTT STAT 10/26/2023 2:21 AM CEMENT CUTTER CBC WITHOUT DIFFERENTIAL Timed 10/26/2023 2:21 AM CEMENT CUTTER TYPE AND SCREEN Timed 10/26/2023 2:21 AM CEMENT CUTTER PHOSPHORUS Routine 10/26/2023 2:21 AM CEMENT CUTTER MAGNESIUM Routine 10/26/2023 2:21 AM CEMENT CUTTER POTASSIUM, WHOLE BLOOD STAT 10/25/2023 10:11 PM CEMENT CUTTER CRITICAL CARE Routine 10/25/2023 9:09 PM CEMENT CUTTER Cardiac arrest (HCC) EGFR Routine 10/25/2023 8:41 PM CEMENT CUTTER DIFFERENTIAL AUTO Routine 10/25/2023 8:4 1 PM CEMENT CUTTER CBC WITH AUTO DIFFERENTIAL Routine 10/25/2023 8:41 PM CEMENT CUTTER BASIC METABOLIC PANEL Routine 10/25/2023 8:41 PM CEMENT CUTTER POCT GLUCOSE DEVICE Routine 10/25/2023 7 :22 PM CEMENT CUTTER CRITICAL CARE Routine 10/25/2023 6:45 PM CEMENT CUTTER Seizures, generalized convulsive (HCC) APTT STAT 10/25/2023 4:59 PM CEMENT CUTTER POCT GLUCOSE DEVICE Routine 10/25/2023 3 :09 PM CEMENT CUTTER MRI BRAIN EPILEPSY W WO CONTRAST IP Routine 10/25/2023 1:55 PM CEMENT CUTTER POCT GLUCOSE DEVICE Routine 10/25/2023 1 0:57 AM CEMENT CUTTER DIFFERENTIAL AUTO Timed 10/25/2023 10: 14 AM CEMENT CUTTER CBC WITH AUTO DIFFERENTIAL Timed 10/25/2023 10:14 AM CEMENT CUTTER APTT STAT 10/25/2023 10:14 AM CEMENT CUTTER XR CHEST 1 VIEW ED Urgent/IP Urgent 10/25/2023 9:52 AM CEMENT CUTTER POCT GLUCOSE DEVICE Routine 10/25/2023 6 :58 AM CEMENT CUTTER POCT GLUCOSE DEVICE Routine 10/25/2023 3 :44 AM CEMENT CUTTER APTT STAT 10/25/2023 3:14 AM CEMENT CUTTER POCT GLUCOSE DEVICE Routine 10/24/2023 1 1:45 PM CEMENT C[facility]TER CRITICAL CARE Routine 10/24/2023 11:00 PM CEMENT CUTTER Cardiac arrest (HCC) CALCIUM, IONIZED Routine 10/24/2023 9:11 PM CEMENT CUTTER POCT GLUCOSE DEVICE Routine 10/24/2023 7 :42 PM CEMENT CUTTER EGFR Routine 10/24/2023 7:06 PM CEMENT CUTTER DIFFERENTIAL AUTO Routine 10/24/2023 7:0 6 PM CEMENT CUTTER CBC WITH AUTO DIFFERENTIAL Routine 10/24/2023 7:06 PM CEMENT CUTTER APTT Routine 10/24/2023 7:06 PM CEMENT CUTTER PROTIME-INR Routine 10/24/2023 7:06 PM CEMENT CUTTER PHOSPHORUS Routine 10/24/2023 7:06 PM CEMENT CUTTER MAGNESIUM Routine 10/24/2023 7:06 PM CEMENT CUTTER BASIC METABOLIC PANEL Routine 10/24/2023 7:06 PM CEMENT CUTTER POCT GLUCOSE DEVICE Routine 10/24/2023 2 :58 PM CEMENT CUTTER APTT STAT 10/24/2023 12:18 PM CEMENT CUTTER TRANSTHORACIC ECHO (TTE) COMPLETE W DOPPLER/CF W CONTRAST STAT 10/24/2023 11:43 AM CEMENT CUTTER POCT GLUCOSE DEVICE Routine 10/24/2023 1 1:04 AM CEMENT CUTTER TROPONIN I HIGH-SENSITIVITY 6-HOUR Timed 10/24/2023 9:39 AM CEMENT CUTTER TROPONIN I HIGH-SENSITIVITY Routine 10/24/2023 8:32 AM CEMENT CUTTER POCT GLUCOSE DEVICE Routine 10/24/2023 7 :31 AM CEMENT C[facility]TER CRITICAL CARE Routine 10/24/2023 6:48 AM CEMENT CUTTER Cardiac arrest (HCC) TROPONIN I HIGH-SENSITIVITY 2-HOUR Timed 10/24/2023 5:38 AM CEMENT CUTTER APTT STAT 10/24/2023 5:38 AM CEMENT C[facility]TER EEG Routine 10/24/2023 5:02 AM CEMENT CUTTER ECG 12-LEAD STAT 10/24/2023 3:44 AM CEMENT CUTTER TROPONIN I HIGH-SENSITIVITY SERIES (BASELINE, 2HR, 4HR, 6HR) Routine 10/24/2023 3:38 AM CEMENT CUTTER LACTATE Routine 10/24/2023 3:38 AM CEMENT CUTTER CRITICAL RESULT CALLBACK CARDIO CHEM Routine 10/24/2023 3:38 AM CEMENT CUTTER POCT GLUCOSE DEVICE Routine 10/24/2023 3 :25 AM CEMENT CUTTER HIV 1/2 ANTIBODY PLUS P24 ANTIGEN Routine 10/24/2023 12:20 AM CEMENT CUTTER POCT GLUCOSE DEVICE Routine 10/24/2023 1 2:20 AM CEMENT CUTTER APTT STAT 10/24/2023 12:20 AM CEMENT CUTTER PROTIME-INR STAT 10/24/2023 12:20 AM CEMENT CUTTER CBC WITHOUT DIFFERENTIAL STAT 10/24/2023 12:[address] CHEST PE ABDOMEN PELVIS W CONTRAST ED Urgent/IP Urgent 10/23/2023 11:[address] HEAD WO CONTRAST Critical/Life-Th reatening 10/23/2023 11:48 PM CEMENT C[facility]TER CRITICAL CARE Routine 10/23/2023 11:47 PM CEMENT CUTTER Cardiac arrest (HCC) DIFFERENTIAL AUTO Routine 10/23/2023 11: 03 PM CEMENT C[facility]TER CALCIUM, IONIZED STAT 10/23/2023 11:0 3 PM CEMENT CUTTER CBC WITH AUTO DIFFERENTIAL Routine 10/23/2023 11:03 PM CEMENT CUTTER MANUAL DIFFERENTIAL Routine 10/23/2023 1 1:03 PM CEMENT CUTTER BLOOD GAS, ARTERIAL STAT 10/23/2023 1 1:03 PM CEMENT C[facility]TER EGFR STAT 10/23/2023 11:02 PM CEMENT CUTTER APTT STAT 10/23/2023 11:02 PM CEMENT CUTTER PROTIME-INR STAT 10/23/2023 11:02 PM CEMENT C[facility]TER PHOSPHORUS STAT 10/23/2023 11:02 PM CEMENT C[facility]TER MAGNESIUM STAT 10/23/2023 11:02 PM CEMENT C[facility]TER LIPID PANEL STAT 10/23/2023 11:02 PM C[facility] C[facility]TER COMPREHENSIVE METABOLIC PANEL STAT 10/23/2023 11:02 PM CEMENT CUTTER POC BLOOD GAS AND CHEMISTRIES, ARTERIAL Routine 10/23/2023 10:39 PM CEMENT CUTTER POC BLOOD GAS AND CHEMISTRIES, ARTERIAL Routine 10/23/2023 10:07 PM CEMENT C[facility]TER EGFR STAT 10/23/2023 9:52 PM CEMENT CUTTER CBC WITHOUT DIFFERENTIAL STAT 10/23/2023 9:52 PM CEMENT C[facility]TER BASIC METABOLIC PANEL STAT 10/23/2023 9:52 PM CEMENT CUTTER POC BLOOD GAS AND CHEMISTRIES, VENOUS Routine 10/23/2023 9:50 PM CEMENT CUTTER FL FLUOROSCOPY < 1 HOUR IP Routine 10/23/2023 8:45 PM CEMENT C[facility]TER EGFR Routine 10/22/2023 9:39 PM CEMENT CUTTER DIFFERENTIAL AUTO Routine 10/22/2023 9:3 9 PM CEMENT CUTTER CBC WITH AUTO DIFFERENTIAL Routine 10/22/2023 9:39 PM CEMENT C[facility]TER PROTIME-INR Routine 10/22/2023 9:39 PM CEMENT CUTTER TYPE AND SCREEN Timed 10/22/2023 9:39 PM C[facility] C[facility]TER BASIC METABOLIC PANEL Routine 10/22/2023 9:39 PM CEMENT CUTTER XR CHEST 1 VIEW IP Routine 10/22/2023 6:24 AM CEMENT C[facility]TER EGFR Routine 10/21/2023 10:52 PM CEMENT CUTTER DIFFERENTIAL AUTO Routine 10/21/2023 10: 52 PM CEMENT CUTTER CBC WITH AUTO DIFFERENTIAL Routine 10/21/2023 10:52 PM CEMENT CUTTER BASIC METABOLIC PANEL Routine 10/21/2023 10:52 PM CEMENT C[facility]TER EGFR Routine 10/20/2023 9:38 PM CEMENT CUTTER DIFFERENTIAL AUTO Routine 10/20/2023 9:3 8 PM CEMENT CUTTER CBC WITH AUTO DIFFERENTIAL Routine 10/20/2023 9:38 PM C[facility] C[facility]TER BASIC METABOLIC PANEL Routine 10/20/2023 9:38 PM CEMENT C[facility]TER EGFR Routine 10/19/2023 9:11 PM CEMENT C[facility]TER DIFFERENTIAL AUTO Routine 10/19/2023 9:1 1 PM CEMENT C[facility]TER CBC WITH AUTO DIFFERENTIAL Routine 10/19/2023 9:11 PM C[facility] C[facility]TER BASIC METABOLIC PANEL Routine 10/19/2023 9:11 PM CEMENT C[facility]TER EGFR Routine 10/18/2023 9:29 PM CEMENT CUTTER DIFFERENTIAL AUTO Routine 10/18/2023 9:2 9 PM CEMENT CUTTER CBC WITH AUTO DIFFERENTIAL Routine 10/18/2023 9:29 PM C[facility] C[facility]TER BASIC METABOLIC PANEL Routine 10/18/2023 9:29 PM CEMENT CUTTER DEXA AXIAL SKELETON BONE DENSITY 1 OR MORE SITES IP Routine 10/18/2023 12:45 PM CEMENT CUTTER FL FLUOROSCOPY < 1 HOUR IP Routine 10/18/2023 11:27 AM CEMENT C[facility]TER EGFR Routine 10/17/2023 10:52 PM CEMENT CUTTER DIFFERENTIAL AUTO Routine 10/17/2023 10: 52 PM CEMENT CUTTER CBC WITH AUTO DIFFERENTIAL Routine 10/17/2023 10:52 PM CEMENT CUTTER APTT Routine 10/17/2023 10:52 PM CEMENT C[facility]TER PROTIME-INR Routine 10/17/2023 10:52 PM CEMENT C[facility]TER BASIC METABOLIC PANEL Routine 10/17/2023 10:[address] UROGRAM IP Routine 10/16/2023 12:36 PM CEMENT CUTTER PERCUTANEOUS NEPHROSTOMY PCN LEFT IP Routine 10/14/2023 1:38 PM CEMENT C[facility]TER URINALYSIS AND REFLEX TO MICROSCOPIC AND CULTURE Routine 10/14/2023 1:35 PM CEMENT C[facility]TER URINALYSIS, MICROSCOPIC ONLY Routine 10/14/2023 1:35 PM CEMENT C[facility]TER URINE CULTURE Routine 10/14/2023 1:35 PM CEMENT CUTTER US KIDNEY COMPLETE Timed 10/14/2023 7: 15 AM CEMENT C[facility]TER EGFR Routine 10/14/2023 6:30 AM CEMENT CUTTER DIFFERENTIAL AUTO Routine 10/14/2023 6:3 0 AM CEMENT CUTTER CBC WITH AUTO DIFFERENTIAL Routine 10/14/2023 6:30 AM C[facility] C[facility]TER COMPREHENSIVE METABOLIC PANEL Routine 10/14/2023 6:30 AM CEMENT C[facility]TER BLOOD CULTURE Routine 10/13/2023 10:59 PM CEMENT CUTTER BLOOD CULTURE Routine 10/13/2023 11:01 AM CEMENT CUTTER FL FLUOROSCOPY < 1 HOUR ED Urgent/IP Urgent 10/13/2023 9:48 AM CEMENT C[facility]TER EGFR Routine 10/13/2023 6:50 AM CEMENT CUTTER DIFFERENTIAL AUTO Routine 10/13/2023 6:5 0 AM CEMENT CUTTER CBC WITH AUTO DIFFERENTIAL Routine 10/13/2023 6:50 AM C[facility] C[facility]TER COMPREHENSIVE METABOLIC PANEL Routine 10/13/2023 6:50 AM CEMENT CUTTER FL FLUOROSCOPY < 1 HOUR IP Routine 10/13/2023 3:00 AM CEMENT C[facility]TER PYELOGRAM - RETROGRADE 10/13/2023 2:21 AM CEMENT C[facility]TER Hydronephrosis with urinary obstruction due to renal calculus CYSTOSCOPY 10/13/2023 2:21 AM CEMENT C[facility]TER Hydronephrosis with urinary obstruction due to renal calculus MRI SPINE TOTAL COMPLETE W WO CONTRAST ED 10/12/2023 11:44 PM CEMENT CUTTER BLOOD CULTURE STAT 10/12/2023 9:[address] CHEST ABDOMEN PELVIS W CONTRAST ED 10/12/2023 9:00 PM CEMENT C[facility]TER LACTATE STAT 10/12/2023 7:50 PM CEMENT CUTTER EGFR STAT 10/12/2023 7:50 PM CEMENT CUTTER DIFFERENTIAL AUTO STAT 10/12/2023 7:5 0 PM CEMENT C[facility]TER URINALYSIS AND REFLEX TO MICROSCOPIC AND CULTURE STAT 10/12/2023 7:50 PM CEMENT CUTTER CBC WITH AUTO DIFFERENTIAL STAT 10/12/2023 7:50 PM CEMENT CUTTER BLOOD CULTURE STAT 10/12/2023 7:50 PM CEMENT C[facility]TER URINALYSIS, MICROSCOPIC ONLY STAT 10/12/2023 7:50 PM CEMENT CUTTER ERYTHROCYTE SEDIMENTATION RATE STAT 10/12/2023 7:50 PM CEMENT CUTTER URINE CULTURE STAT 10/12/2023 7:50 PM CEMENT CUTTER CRP (ACUTE PHASE) STAT 10/12/2023 7:5 0 PM CEMENT CUTTER BASIC METABOLIC PANEL STAT 10/12/2023 7:50 PM CEMENT CUTTER documented in this encounter Results * XR Spine Lumbar 2 or 3 Views (10/30/2023 9:49 AM CEMENT CUTTER) Anatomical Region Laterality Modality Spine N/A Computed Radiogr aphy 10/30/2023 10:1 9 AM CEMENT CUTTER Impressions 10/30/2023 10:25 AM CEMENT CUTTER 1. ??Posterior instrumented spinal fusion from L4 to L5 with combined interbody fusion. Dictated by: Tamia Roajs MD The radiology attending physician has personally reviewed this study, and had reviewed and/or edited this written report and agrees with it. Electronically signed by: Dmitry Navarro MD Narrative 10/30/2023 10:25 AM CEMENT CUTTER EXAMINATION: XR SPINE LUMBAR 2 OR 3 [...] Resu lt * eGFR (10/29/2023 9:53 PM CEMENT CUTTER) eGFR 85 >=60 mL/min/1. 73 m2 [facility] [...] last reviewed 2021. Blood 10/29/2023 9:53 PM CEMENT CUTTER 10/29/2023 10:11 PM CEMENT CUTTER us Tia Nolan NP LAB BLOOD ORDERABLES F inal Result Performing Organization Address City/[facility]/ZIP Co de Phone Number [facility] [place] [address] * Magnesium (10/29/2023 9:53 PM CEMENT CUTTER) Magnesium 1.7 1.4 - 2.5 mg/dL [facility] Blood 10/29/2023 9:53 PM CEMENT CUTTER 10/29/2023 10:11 PM CEMENT CUTTER us Hayder Vu Jr., MD LAB BLOOD ORDERABLE S Final Result Performing Organization Address City/[facility]/ZIP Co de Phone Number [facility] [place] [address] * Phosphorus (10/29/2023 9:53 PM CEMENT CUTTER) Phosphorus, pl 2.6 2.3 - 4.5 mg/dL [facility] Blood 10/29/2023 9:53 PM CEMENT CUTTER 10/29/2023 10:11 PM CEMENT CUTTER us Hayder Vu Jr., MD LAB BLOOD ORDERABLE S Final Result [facility] Department [place] [address] * Differential, auto (10/29/2023 9:53 PM CEMENT CUTTER) Neutrophil abs 4.9 1.5 - 6.5 K/cumm [facility] Imm gran abs 0.1 0.0 - 0.1 K/cumm [facility] Lymphocyte abs 1.3 0.8 - 3.3 K/cumm [facility] Monocyte abs 0.7 0.2 - 0.8 K/cumm [facility] Eosinophil abs 0.2 0.0 - 0.5 K/cumm [facility] Basophil abs 0.0 0.0 - 0.1 K/cumm [facility] Neutrophil pct 68.7 % [facility] Comment: Interpretive Data Percent cell count reference ranges are not reported, since discordance with absolute values may lead to misinterpretation of CBC data. Current Interpretive Data was last revised on 2018. Imm gran pct 1.0 % [facility] Comment: Interpretive Data Percent cell count reference ranges are not reported, since discordance with absolute values may lead to misinterpretation of CBC data. Current Interpretive Data was last revised on 2018. Lymphocyte pct 18.3 % [facility] Comment: Interpretive Data Percent cell count reference ranges are not reported, since discordance with absolute values may lead to misinterpretation of CBC data. Current Interpretive Data was last revised on 2018. Monocyte pct 9.7 % [facility] Comment: Interpretive Data Percent cell count reference ranges are not reported, since discordance with absolute values may lead to misinterpretation of CBC data. Current Interpretive Data was last revised on 2018. Eosinophil pct 2.2 % [facility] Comment: Interpretive Data Percent cell count reference ranges are not reported, since discordance with absolute values may lead to misinterpretation of CBC data. Current Interpretive Data was last revised on 2018. Basophil pct 0.1 % [facility] Comment: Interpretive Data Percent cell count reference ranges are not reported, since discordance with absolute values may lead to misinterpretation of CBC data. Current Interpretive Data was last revised on 2018. Blood 10/29/2023 9:53 PM CEMENT CUTTER 10/29/2023 10:11 PM CEMENT CUTTER Tia Nolan BUSINESS INFORMATION MANAGER LAB BLOOD ORDERABLES F inal Result [facility] Department [place] [address] * (ABNORMAL) CBC with auto differential (10/29/2023 9:53 PM CEMENT CUTTER) WBC 7.2 3.8 - 9.9 K/cumm [facility] Hgb 9.4(L) 13.0 - 17.5 g/dL [facility] Hct 28.0(L) 38.9 - 50.3 % [facility] Plt 313 150 - 400 K/cumm [facility] MPV 10.7 9.1 - 12.3 fL [facility] RBC 3.00(L) 4.30 - 5.80 M/cumm [facility] MCV 93.3 81.3 - 96.4 fL [facility] MCH 31.3 27.1 - 33.3 pg [facility] MCHC 33.6 32.3 - 35.7 g/dL [facility] RDW CV 13.7 11.1 - 14.9 % [facility] RDW SD 46.5 35.7 - 48.1 fL [facility] NRBC abs 0.00 0.00 - 0.01 K/cumm [facility] Blood 10/29/2023 9:53 PM CEMENT CUTTER 10/29/2023 10:11 PM CEMENT CUTTER Tia Nolan BUSINESS INFORMATION MANAGER LAB BLOOD ORDERABLES F inal Result Performing Organization Address City/[facility]/ZIP Co de Phone Number [facility] Department [place] [address] * (ABNORMAL) Basic metabolic panel (10/29/2023 9:53 PM CEMENT CUTTER) Pathologist [facility] Sodium 137 135 - 145 mmol/L [facility] Potassium, pl 3.7 3.3 - 4.9 mmol/L [facility] Chloride 103 97 - 110 mmol/L [facility] CO2 24 22 - 32 mmol/L [facility] Anion gap 10 2 - 15 mmol/L [facility] BUN 10 6 - 25 mg/dL [facility] Creatinine 0.95 0.80 - 1.30 mg/dL [facility] Glucose 108 70 - 199 mg/dL [facility] Comment: Interpretive Data Fasting glucose >/= [...] 2022. Calcium 8.1(L) 8.5 - 10.3 mg/dL [facility] Blood 10/29/2023 9:53 PM CEMENT CUTTER 10/29/2023 10:11 PM CEMENT CUTTER us Tia Nolan BUSINESS INFORMATION MANAGER LAB BLOOD ORDERABLES F inal Result [facility] Department [place] [address] * eGFR (10/29/2023 4:40 AM CEMENT CUTTER) [facility] eGFR >90 >=60 mL/min/1. 73 m2 [facility] Comment: Interpretive Data Reference Interval Normal ?>/= [...] last reviewed 2021. Blood 10/29/2023 4:40 AM CEMENT CUTTER 10/29/2023 5:04 AM CEMENT CUTTER us Tia Nolan BUSINESS INFORMATION MANAGER LAB BLOOD ORDERABLES F inal Result [facility] Department [place] [address] * Differential, auto (10/29/2023 4:40 AM CEMENT CUTTER) Neutrophil abs 3.6 1.5 - 6.5 K/cumm [facility] Imm gran abs 0.1 0.0 - 0.1 K/cumm [facility] Lymphocyte abs 1.0 0.8 - 3.3 K/cumm [facility] Monocyte abs 0.6 0.2 - 0.8 K/cumm [facility] Eosinophil abs 0.2 0.0 - 0.5 K/cumm [facility] Basophil abs 0.0 0.0 - 0.1 K/cumm [facility] Neutrophil pct 66.1 % [facility] Comment: Interpretive Data Percent cell count reference ranges are not reported, since discordance with absolute values may lead to misinterpretation of CBC data. Current Interpretive Data was last revised on 2018. Imm gran pct 1.1 % [facility] Comment: Interpretive Data Percent cell count reference ranges are not reported, since discordance with absolute values may lead to misinterpretation of CBC data. Current Interpretive Data was last revised on 2018. Lymphocyte pct 18.9 % [facility] Comment: Interpretive Data Percent cell count reference ranges are not reported, since discordance with absolute values may lead to misinterpretation of CBC data. Current Interpretive Data was last revised on 2018. Monocyte pct 10.4 % [facility] Comment: Interpretive Data Percent cell count reference ranges are not reported, since discordance with absolute values may lead to misinterpretation of CBC data. Current Interpretive Data was last revised on 2018. Eosinophil pct 3.1 % [facility] Comment: Interpretive Data Percent cell count reference ranges are not reported, since discordance with absolute values may lead to misinterpretation of CBC data. Current Interpretive Data was last revised on 2018. Basophil pct 0.4 % [facility] Comment: Interpretive Data Percent cell count reference ranges are not reported, since discordance with absolute values may lead to misinterpretation of CBC data. Current Interpretive Data was last revised on 2018. Blood 10/29/2023 4:40 AM CEMENT CUTTER 10/29/2023 5:05 AM CEMENT CUTTER us Tia Nolan NP LAB BLOOD ORDERABLES F inal Result [facility] Department of Laboratories [place], [place] [id number] * Type and screen (10/29/2023 4:40 AM CEMENT CUTTER) Jigna, indirect Negative ABO Rh O Positive [facility] Blood 10/29/2023 4:40 AM CEMENT CUTTER 10/29/2023 5:09 AM CEMENT CUTTER Narrative [facility] - 10/29/2023 6:37 AM CEMENT CUTTER Has the patient had Daratumumab or Isatuximab in the past 6 months?->Unknown Tia Nolan BUSINESS INFORMATION MANAGER LAB BLOOD BANK TEST OR DERABLES Final Result Performing Organization Address [facility] Co de Phone Number [facility] Department [place] [address] * (ABNORMAL) CBC with auto differential (10/29/2023 4:40 AM CEMENT CUTTER) [facility] WBC 5.4 3.8 - 9.9 K/cumm [facility] Hgb 9.5(L) 13.0 - 17.5 g/dL [facility] Hct 27.9(L) 38.9 - 50.3 % [facility] Plt 295 150 - 400 K/cumm [facility] MPV 10.8 9.1 - 12.3 fL [facility] RBC 3.03(L) 4.30 - 5.80 M/cumm [facility] MCV 92.1 81.3 - 96.4 fL [facility] MCH 31.4 27.1 - 33.3 pg [facility] MCHC 34.1 32.3 - 35.7 g/dL [facility] RDW CV 13.6 11.1 - 14.9 % [facility] RDW SD 45.1 35.7 - 48.1 fL [facility] NRBC abs 0.00 0.00 - 0.01 K/cumm [facility] Blood 10/29/2023 4:40 AM CEMENT CUTTER 10/29/2023 5:05 AM CEMENT CUTTER Tia Nolan BUSINESS INFORMATION MANAGER LAB BLOOD ORDERABLES F inal Result Performing Organization Address [facility]/ZIP Co de Phone Number [facility] Department [place] [address] * (ABNORMAL) Basic metabolic panel (10/29/2023 4:40 AM CEMENT CUTTER) Sodium 139 135 - 145 mmol/L [facility] Potassium, pl 3.5 3.3 - 4.9 mmol/L [facility] Chloride 104 97 - 110 mmol/L [facility] CO2 23 22 - 32 mmol/L [facility] Anion gap 12 2 - 15 mmol/L [facility] BUN 11 6 - 25 mg/dL [facility] Creatinine 0.88 0.80 - 1.30 mg/dL [facility] Glucose 112 70 - 199 mg/dL [facility] Comment: Interpretive Data Fasting glucose >/= [...] 2022. Calcium 8.2(L) 8.5 - 10.3 mg/dL [facility] Blood 10/29/2023 4:40 AM CEMENT CUTTER 10/29/2023 5:04 AM CEMENT CUTTER Tia Nolan NP LAB BLOOD ORDERABLES F inal Result Performing Organization Address City/[facility]/ZIP Co de Phone Number [facility] Department [place] [address] * Phosphorus (10/29/2023 4:40 AM CEMENT CUTTER) Pathologist [facility] Phosphorus, pl 2.7 2.3 - 4.5 mg/dL [facility] Blood 10/29/2023 4:40 AM CEMENT CUTTER 10/29/2023 5:05 AM CEMENT CUTTER Tia Nolan NP LAB BLOOD ORDERABLES F inal Result Performing Organization Address City/[facility]/ZIP Co de Phone Number [facility] Department [place] [address] * Magnesium (10/29/2023 4:40 AM CEMENT CUTTER) Magnesium 1.8 1.4 - 2.5 mg/dL [facility] Blood 10/29/2023 4:40 AM CEMENT CUTTER 10/29/2023 5:05 AM CEMENT CUTTER us Tia Nolan BUSINESS INFORMATION MANAGER LAB BLOOD ORDERABLES F inal Result [facility] Department [place] [address] * CT Head WO Contrast (10/28/2023 5:58 PM CEMENT CUTTER) Anatomical Region Laterality Modality Head and Neck N/A Computed Tomogra phy 10/28/2023 8:46 PM CEMENT CUTTER Impressions 10/29/2023 10:19 AM CEMENT CUTTER 1. ??Thin bilateral subdural collections along the [...] Landen Perez M.D. Narrative 10/29/2023 10:19 AM CEMENT CUTTER EXAMINATION: CT head without contrast HISTORY: Subdural [...] Final Result * eGFR (10/27/2023 11:32 PM CEMENT CUTTER) eGFR >90 >=60 mL/min/1. 73 m2 LAURA [...] reviewed 2021. Blood 10/27/2023 11:3 2 PM CEMENT CUTTER 10/28/2023 12:27 AM CEMENT CUTTER us Tia Nolan BUSINESS INFORMATION MANAGER LAB BLOOD ORDERABLES F inal Result [facility] Department [place] [address] * Differential, auto (10/27/2023 11:32 PM CEMENT CUTTER) Neutrophil abs 3.9 1.5 - 6.5 K/cumm [facility] Imm gran abs 0.1 0.0 - 0.1 K/cumm [facility] Lymphocyte abs 1.2 0.8 - 3.3 K/cumm [facility] Monocyte abs 0.6 0.2 - 0.8 K/cumm [facility] Eosinophil abs 0.2 0.0 - 0.5 K/cumm [facility] Basophil abs 0.0 0.0 - 0.1 K/cumm [facility] Neutrophil pct 65.9 % [facility] Comment: Interpretive Data Percent cell count reference ranges are not reported, since discordance with absolute values may lead to misinterpretation of CBC data. Current Interpretive Data was last revised on 2018. Imm gran pct 0.8 % [facility] Comment: Interpretive Data Percent cell count reference ranges are not reported, since discordance with absolute values may lead to misinterpretation of CBC data. Current Interpretive Data was last revised on 2018. Lymphocyte pct 20.3 % [facility] Comment: Interpretive Data Percent cell count reference ranges are not reported, since discordance with absolute values may lead to misinterpretation of CBC data. Current Interpretive Data was last revised on 2018. Monocyte pct 9.6 % [facility] Comment: Interpretive Data Percent cell count reference ranges are not reported, since discordance with absolute values may lead to misinterpretation of CBC data. Current Interpretive Data was last revised on 2018. Eosinophil pct 3.2 % [facility] Comment: Interpretive Data Percent cell count reference ranges are not reported, since discordance with absolute values may lead to misinterpretation of CBC data. Current Interpretive Data was last revised on 2018. Basophil pct 0.2 % [facility] Comment: Interpretive Data Percent cell count reference ranges are not reported, since discordance with absolute values may lead to misinterpretation of CBC data. Current Interpretive Data was last revised on 2018. Blood 10/27/2023 11:3 2 PM CEMENT CUTTER 10/28/2023 12:26 AM CEMENT CUTTER Tia Nolan NP LAB BLOOD ORDERABLES F inal Result [facility] Department [place] [address] * (ABNORMAL) CBC with auto differential (10/27/2023 11:32 PM CEMENT CUTTER) WBC 6.0 3.8 - 9.9 K/cumm [facility] Hgb 8.6(L) 13.0 - 17.5 g/dL [facility] Hct 25.3(L) 38.9 - 50.3 % [facility] Plt 295 150 - 400 K/cumm [facility] MPV 11.2 9.1 - 12.3 fL [facility] RBC 2.78(L) 4.30 - 5.80 M/cumm [facility] MCV 91.0 81.3 - 96.4 fL [facility] MCH 30.9 27.1 - 33.3 pg [facility] MCHC 34.0 32.3 - 35.7 g/dL [facility] RDW CV 13.2 11.1 - 14.9 % [facility] RDW SD 44.2 35.7 - 48.1 fL [facility] NRBC abs 0.00 0.00 - 0.01 K/cumm [facility] Blood 10/27/2023 11:3 2 PM CEMENT CUTTER 10/28/2023 12:26 AM CEMENT CUTTER Tia Nolan BUSINESS INFORMATION MANAGER LAB BLOOD ORDERABLES F inal Result [facility] Department [place] [address] * (ABNORMAL) Basic metabolic panel (10/27/2023 11:32 PM CEMENT CUTTER) Sodium 135 135 - 145 mmol/L [facility] Potassium, pl 3.7 3.3 - 4.9 mmol/L [facility] Chloride 103 97 - 110 mmol/L [facility] CO2 26 22 - 32 mmol/L [facility] Anion gap 6 2 - 15 mmol/L [facility] BUN 11 6 - 25 mg/dL [facility] Creatinine 0.88 0.80 - 1.30 mg/dL [facility] Glucose 108 70 - 199 mg/dL [facility] Comment: Interpretive Data Fasting glucose >/= [...] 2022. Calcium 8.0(L) 8.5 - 10.3 mg/dL [facility] Blood 10/27/2023 11:3 2 PM CEMENT CUTTER 10/28/2023 12:27 AM CEMENT CUTTER Tia Nolan BUSINESS INFORMATION MANAGER LAB BLOOD ORDERABLES F inal Result [facility] Department [place] [address] * Phosphorus (10/27/2023 4:37 AM CEMENT CUTTER) Pathologist [facility] Phosphorus, pl 2.5 2.3 - 4.5 mg/dL [facility] Blood 10/27/2023 4:37 AM CEMENT CUTTER 10/27/2023 4:59 AM CEMENT CUTTER Tia Nolan BUSINESS INFORMATION MANAGER LAB BLOOD ORDERABLES F inal Result Performing Organization Address City/[facility]/ZIP Co de Phone Number [facility] Department [place] [address] * Magnesium (10/27/2023 4:37 AM CEMENT CUTTER) Pathologist [facility] Magnesium 1.9 1.4 - 2.5 mg/dL [facility] Blood 10/27/2023 4:37 AM CEMENT CUTTER 10/27/2023 4:59 AM CEMENT CUTTER Tia Nolan BUSINESS INFORMATION MANAGER LAB BLOOD ORDERABLES F inal Result Performing Organization Address City/[facility] Co de Phone Number [facility] Department [place] [address] * (ABNORMAL) CBC without differential (10/27/2023 4:37 AM CEMENT CUTTER) Pathologist [facility] WBC 7.1 3.8 - 9.9 K/cumm [facility] Hgb 9.1(L) 13.0 - 17.5 g/dL [facility] Hct 26.1(L) 38.9 - 50.3 % [facility] Plt 291 150 - 400 K/cumm [facility] MPV 11.0 9.1 - 12.3 fL [facility] RBC 2.93(L) 4.30 - 5.80 M/cumm [facility] MCV 89.1 81.3 - 96.4 fL [facility] MCH 31.1 27.1 - 33.3 pg [facility] MCHC 34.9 32.3 - 35.7 g/dL [facility] RDW CV 13.4 11.1 - 14.9 % [facility] RDW SD 43.7 35.7 - 48.1 fL [facility] NRBC abs 0.00 0.00 - 0.01 K/cumm [facility] Blood 10/27/2023 4:37 AM CEMENT CUTTER 10/27/2023 5:07 AM CEMENT CUTTER Narrative [facility] - 10/27/2023 5:17 AM CEMENT CUTTER While on heparin infusion Tia Nolan NP LAB BLOOD ORDERABLES F inal Result Performing Organization Address City/[facility] Co de Phone Number [facility] Department [place] [address] * Transfuse RBC (10/26/2023 10:32 PM CEMENT CUTTER) Blood us Hayder Vu Jr., MD BLOOD TRANSFUSION O RDERABLES Final Result [facility] [place] [address] * Transfuse RBC: 1 Units (10/26/2023 10:32 PM CEMENT CUTTER) Blood Hayder Vu Jr., MD BLOOD TRANSFUSION O RDERABLES Final Result * eGFR (10/26/2023 8:07 PM CEMENT CUTTER) eGFR >90 >=60 mL/min/1. 73 m2 [facility] [...] last reviewed 2021. Blood 10/26/2023 8:07 PM CEMENT CUTTER 10/26/2023 9:01 PM CEMENT CUTTER us Tia Nolan BUSINESS INFORMATION MANAGER LAB BLOOD ORDERABLES F inal Result [facility] Department [place] [address] * (ABNORMAL) Differential, auto (10/26/2023 8:07 PM CEMENT CUTTER) Neutrophil abs 6.7(H) 1.5 - 6.5 K/cumm [facility] Imm gran abs 0.1 0.0 - 0.1 K/cumm [facility] Lymphocyte abs 1.1 0.8 - 3.3 K/cumm [facility] Monocyte abs 0.7 0.2 - 0.8 K/cumm [facility] Eosinophil abs 0.1 0.0 - 0.5 K/cumm [facility] Basophil abs 0.0 0.0 - 0.1 K/cumm [facility] Neutrophil pct 77.6 % [facility] Comment: Interpretive Data Percent cell count reference ranges are not reported, since discordance with absolute values may lead to misinterpretation of CBC data. Current Interpretive Data was last revised on 2018. Imm gran pct 0.6 % [facility] Comment: Interpretive Data Percent cell count reference ranges are not reported, since discordance with absolute values may lead to misinterpretation of CBC data. Current Interpretive Data was last revised on 2018. Lymphocyte pct 12.5 % [facility] Comment: Interpretive Data Percent cell count reference ranges are not reported, since discordance with absolute values may lead to misinterpretation of CBC data. Current Interpretive Data was last revised on 2018. Monocyte pct 7.8 % [facility] Comment: Interpretive Data Percent cell count reference ranges are not reported, since discordance with absolute values may lead to misinterpretation of CBC data. Current Interpretive Data was last revised on 2018. Eosinophil pct 1.0 % [facility] Comment: Interpretive Data Percent cell count reference ranges are not reported, since discordance with absolute values may lead to misinterpretation of CBC data. Current Interpretive Data was last revised on 2018. Basophil pct 0.5 % [facility] Comment: Interpretive Data Percent cell count reference ranges are not reported, since discordance with absolute values may lead to misinterpretation of CBC data. Current Interpretive Data was last revised on 2018. Blood 10/26/2023 8:07 PM CEMENT CUTTER 10/26/2023 9:00 PM CEMENT CUTTER us Tia Nolan NP LAB BLOOD ORDERABLES F inal Result [facility] Department [place] [address] * (ABNORMAL) CBC with auto differential (10/26/2023 8:07 PM CEMENT CUTTER) [facility] WBC 8.6 3.8 - 9.9 K/cumm [facility] Hgb 9.5(L) 13.0 - 17.5 g/dL [facility] Hct 27.6(L) 38.9 - 50.3 % [facility] Plt 313 150 - 400 K/cumm [facility] MPV 11.2 9.1 - 12.3 fL [facility] RBC 3.08(L) 4.30 - 5.80 M/cumm [facility] MCV 89.6 81.3 - 96.4 fL [facility] MCH 30.8 27.1 - 33.3 pg [facility] MCHC 34.4 32.3 - 35.7 g/dL [facility] RDW CV 13.3 11.1 - 14.9 % [facility] RDW SD 43.5 35.7 - 48.1 fL [facility] NRBC abs 0.00 0.00 - 0.01 K/cumm [facility] Blood 10/26/2023 8:07 PM CEMENT CUTTER 10/26/2023 9:00 PM CEMENT CUTTER us Tia Nolan BUSINESS INFORMATION MANAGER LAB BLOOD ORDERABLES F inal Result [facility] Department [place] [address] * (ABNORMAL) Basic metabolic panel (10/26/2023 8:07 PM CEMENT CUTTER) [facility] Sodium 137 135 - 145 mmol/L [facility] Potassium, pl 3.5 3.3 - 4.9 mmol/L [facility] Chloride 104 97 - 110 mmol/L [facility] CO2 26 22 - 32 mmol/L [facility] Anion gap 7 2 - 15 mmol/L [facility] BUN 11 6 - 25 mg/dL [facility] Creatinine 0.86 0.80 - 1.30 mg/dL [facility] Glucose 132 70 - 199 mg/dL [facility] Comment: Interpretive Data Fasting glucose >/= [...] 2022. Calcium 8.2(L) 8.5 - 10.3 mg/dL [facility] Blood 10/26/2023 8:07 PM CEMENT CUTTER 10/26/2023 9:01 PM CEMENT CUTTER us Tia Nolan BUSINESS INFORMATION MANAGER LAB BLOOD ORDERABLES F inal Result [facility] Department [place] [address] * eGFR (10/26/2023 5:28 PM CEMENT CUTTER) eGFR 90 >=60 mL/min/1. 73 m2 [facility] Comment: Interpretive Data Reference Interval Normal ?>/= [...] last reviewed 2021. Blood 10/26/2023 5:28 PM CEMENT CUTTER 10/26/2023 6:00 PM CEMENT CUTTER Kasey Rutledge LAB BLOOD ORDERABLES Final Resu lt Performing Organization Address City/[facility]/ZIP Co de Phone Number [facility] [place] [address] * Creatinine (10/26/2023 5:28 PM CEMENT CUTTER) Creatinine 0.91 0.80 - 1.30 mg/dL [facility] Blood 10/26/2023 5:28 PM CEMENT CUTTER 10/26/2023 6:00 PM CEMENT CUTTER N[facility]ative [facility] 10/26/2023 6:31 PM CEMENT CUTTER Baseline prior to enoxaparin initiation. Kasey Rutledge LAB BLOOD ORDERABLES Final Resu lt Performing Organization Address City/[facility]/ZIP Co de Phone Number [facility] [place] [address] * (ABNORMAL) aPTT (10/26/2023 5:28 PM CEMENT CUTTER) aPTT 64(H) 28 - 38 sec [facility] Comment: Interpretive Data Heparin therapeutic range: 66.0 - 100.0 seconds. Range based on correlation with therapeutic heparin activity range of 0.3 - 0.7 Units/mL. Current interpretive data was last revised on 2023. Blood 10/26/2023 5:28 PM CEMENT CUTTER 10/26/2023 6:09 PM CEMENT CUTTER Narrative [facility] - 10/26/2023 6:18 PM CEMENT CUTTER Baseline prior to enoxaparin initiation. Kasey Rutledge NP LAB BLOOD ORDERABLES Final Resu lt [facility] Department [place] [address] * (ABNORMAL) CBC without differential (10/26/2023 5:28 PM CEMENT CUTTER) [facility] WBC 9.1 3.8 - 9.9 K/cumm [facility] Hgb 9.6(L) 13.0 - 17.5 g/dL [facility] Hct 28.3(L) 38.9 - 50.3 % [facility] Plt 321 150 - 400 K/cumm [facility] MPV 11.4 9.1 - 12.3 fL [facility] RBC 3.16(L) 4.30 - 5.80 M/cumm [facility] MCV 89.6 81.3 - 96.4 fL [facility] MCH 30.4 27.1 - 33.3 pg [facility] MCHC 33.9 32.3 - 35.7 g/dL [facility] RDW CV 13.2 11.1 - 14.9 % [facility] RDW SD 43.6 35.7 - 48.1 fL [facility] NRBC abs 0.00 0.00 - 0.01 K/cumm [facility] Blood 10/26/2023 5:28 PM CEMENT CUTTER 10/26/2023 6:01 PM CEMENT CUTTER Narrative [facility] - 10/26/2023 6:09 PM CEMENT CUTTER Baseline prior to enoxaparin initiation. Kasey Rutledge NP LAB BLOOD ORDERABLES Final Resu lt [facility] Department [place] [address] * Protime-INR (10/26/2023 5:28 PM CEMENT CUTTER) PT 13.2 10.3 - 13.7 sec [facility] INR 1.16 0.90 - 1.20 [facility] Comment: Interpretive data Oral anticoagulant therapeutic ranges: Venous thromboembolism prophylaxis or treatment: 2.0-3.0 CARDIOLOGY Standard range: 2.0-3.0 High-intensity range: 2.5-3.5 Refer to indication-specific guidelines for appropriate target ranges for prosthetic heart valve replacement. Current interpretive data was last revised on 2019. Blood 10/26/2023 5:28 PM CEMENT CUTTER 10/26/2023 6:09 PM CEMENT CUTTER Narrative [facility] - 10/26/2023 6:18 PM CEMENT CUTTER Baseline prior to enoxaparin initiation. us Kasey Rutledge NP LAB BLOOD ORDERABLES Final Resu lt [facility] Department [place] [address] * (ABNORMAL) Differential, auto (10/26/2023 2:43 PM CEMENT CUTTER) Pathologist [facility] Neutrophil abs 8.1(H) 1.5 - 6.5 K/cumm [facility] Imm gran abs 0.1 0.0 - 0.1 K/cumm [facility] Lymphocyte abs 0.9 0.8 - 3.3 K/cumm [facility] Monocyte abs 0.7 0.2 - 0.8 K/cumm [facility] Eosinophil abs 0.2 0.0 - 0.5 K/cumm [facility] Basophil abs 0.0 0.0 - 0.1 K/cumm [facility] Neutrophil pct 81.9 % [facility] Comment: Interpretive Data Percent cell count reference ranges are not reported, since discordance with absolute values may lead to misinterpretation of CBC data. Current Interpretive Data was last revised on 2018. Imm gran pct 0.6 % [facility] Comment: Interpretive Data Percent cell count reference ranges are not reported, since discordance with absolute values may lead to misinterpretation of CBC data. Current Interpretive Data was last revised on 2018. Lymphocyte pct 9.0 % [facility] Comment: Interpretive Data Percent cell count reference ranges are not reported, since discordance with absolute values may lead to misinterpretation of CBC data. Current Interpretive Data was last revised on 2018. Monocyte pct 6.6 % [facility] Comment: Interpretive Data Percent cell count reference ranges are not reported, since discordance with absolute values may lead to misinterpretation of CBC data. Current Interpretive Data was last revised on 2018. Eosinophil pct 1.5 % [facility] Comment: Interpretive Data Percent cell count reference ranges are not reported, since discordance with absolute values may lead to misinterpretation of CBC data. Current Interpretive Data was last revised on 2018. Basophil pct 0.4 % [facility] Comment: Interpretive Data Percent cell count reference ranges are not reported, since discordance with absolute values may lead to misinterpretation of CBC data. Current Interpretive Data was last revised on 2018. Blood 10/26/2023 2:43 PM CEMENT CUTTER 10/26/2023 2:56 PM CEMENT CUTTER us Kasey Rutledge BUSINESS INFORMATION MANAGER LAB BLOOD ORDERABLES Final Resu lt [facility] Department [place] [address] * (ABNORMAL) CBC with auto differential (10/26/2023 2:43 PM CEMENT CUTTER) WBC 9.9 3.8 - 9.9 K/cumm [facility] Hgb 9.3(L) 13.0 - 17.5 g/dL [facility] Hct 27.2(L) 38.9 - 50.3 % [facility] Plt 310 150 - 400 K/cumm [facility] MPV 11.0 9.1 - 12.3 fL [facility] RBC 3.01(L) 4.30 - 5.80 M/cumm [facility] MCV 90.4 81.3 - 96.4 fL [facility] MCH 30.9 27.1 - 33.3 pg [facility] MCHC 34.2 32.3 - 35.7 g/dL [facility] RDW CV 13.0 11.1 - 14.9 % [facility] RDW SD 43.3 35.7 - 48.1 fL [facility] NRBC abs 0.00 0.00 - 0.01 K/cumm [facility] Blood 10/26/2023 2:43 PM CEMENT CUTTER 10/26/2023 2:56 PM CEMENT CUTTER Narrative [facility] - 10/26/2023 3:05 PM CEMENT CUTTER Please draw one hour after second unit of PRBC's Kasey Rutledge NP LAB BLOOD ORDERABLES Final Resu lt Performing Organization Address [facility]/ZIP Co de Phone Number [facility] [place] [address] * Transfuse RBC (10/26/2023 1:41 PM CEMENT CUTTER) Blood Hayder Vu Jr., MD BLOOD TRANSFUSION O RDERABLES Final Result Performing Organization Address [facility]/ZIP Co de Phone Number [facility] [place] [address] * Transfuse RBC: 1 Units (10/26/2023 1:41 PM CEMENT CUTTER) Blood Hayder Vu Jr., MD BLOOD TRANSFUSION O RDERABLES Final Result * (ABNORMAL) aPTT (10/26/2023 11:09 AM CEMENT CUTTER) aPTT 74(H) 28 - 38 sec [facility] Comment: Interpretive Data Heparin therapeutic range: 66.0 - 100.0 seconds. Range based on correlation with therapeutic heparin activity range of 0.3 - 0.7 Units/mL. Current interpretive data was last revised on 2023. Blood 10/26/2023 11:0 9 AM CEMENT CUTTER 10/26/2023 11:38 AM CEMENT CUTTER Ca Ruano MD PhD LAB BLOOD ORDERABLES Final Result Performing Organization Address [facility] Co de Phone Number [facility] Department [place] [address] * Prepare RBC: 1 Units (10/26/2023 4:46 AM CEMENT CUTTER) Product code [id number] Unit Number [id number] [facility] Product Blood Type OPOS [facility] Dispense Status PRESUMED TRANSFUSED [facility] Blood 10/26/2023 4:46 AM CEMENT CUTTER 10/26/2023 4:45 AM CEMENT CUTTER Narrative [facility] - 10/26/2023 4:02 PM CEMENT CUTTER Are special requirements needed? (All products are leukoreduced and CMV- safe)- >No Date required:-20231026 LRRBC # of [id number] Reasons:-Active bleeding, Hgb <8 g/dL} Hayder Vu Jr., MD BLOOD BANK PRODUCT ORDERABLES Final Result Performing Organization Address [facility] Co de Phone Number [facility] Department [place] [address] * Prepare RBC: 1 Units (10/26/2023 3:03 AM CEMENT CUTTER) Product code [id number] Unit Number [id number] 5 [facility] Product Blood Type OPOS [facility] Dispense Status PRESUMED TRANSFUSED [facility] Blood 10/26/2023 3:03 AM CEMENT CUTTER 10/26/2023 3:03 AM CEMENT CUTTER Narrative [facility] - 10/26/2023 4:01 PM CEMENT CUTTER Are special requirements needed? (All products are leukoreduced and CMV- safe)- >No Date required:-20231026 LRRBC # of [id number] Reasons:-Hgb <7 g/dL} Hayder Vu Jr., MD BLOOD BANK PRODUCT ORDERABLES Final Result Performing Organization Address [facility] Co de Phone Number [facility] [place] [address] * (ABNORMAL) aPTT (10/26/2023 2:21 AM CEMENT CUTTER) aPTT 58(H) 28 - 38 sec [facility] Comment: Interpretive Data Heparin therapeutic range: 66.0 - 100.0 seconds. Range based on correlation with therapeutic heparin activity range of 0.3 - 0.7 Units/mL. Current interpretive data was last revised on 2023. Blood 10/26/2023 2:21 AM CEMENT CUTTER 10/26/2023 2:32 AM CEMENT CUTTER Narrative [facility] - 10/26/2023 2:54 AM CEMENT CUTTER Draw STAT PTT 6 hrs after initiation of heparin infusion, draw STAT PTT 6 hours after each dose change, and every 6 hours until 2 consecutive PTTs are within therapeutic range. Once two consecutive PTT's are therapeutic (66-100 seconds), then draw PTT every AM until heparin is discontinued. Hayder Vu Jr., MD LAB BLOOD ORDERABLE S Final Result Performing Organization Address [facility] de Phone Number [facility] Department [place] [address] * Type and screen (10/26/2023 2:21 AM CEMENT CUTTER) Jigna, indirect Negative ABO Rh O Positive [facility] Blood 10/26/2023 2:21 AM CEMENT CUTTER 10/26/2023 2:32 AM CEMENT CUTTER Narrative [facility] - 10/26/2023 3:20 AM CEMENT CUTTER Has the patient had Daratumumab or Isatuximab in the past 6 months?->Unknown Tia Nolan NP LAB BLOOD BANK TEST OR DERABLES Final Result Performing Organization Address [facility] Co de Phone Number [facility] Department [place] [address] * (ABNORMAL) CBC without differential (10/26/2023 2:21 AM CEMENT CUTTER) [facility] WBC 9.0 3.8 - 9.9 K/cumm [facility] Hgb 6.7(L) 13.0 - 17.5 g/dL [facility] Hct 19.6(L) 38.9 - 50.3 % [facility] Plt 297 150 - 400 K/cumm [facility] MPV 10.9 9.1 - 12.3 fL [facility] RBC 2.15(L) 4.30 - 5.80 M/cumm [facility] MCV 91.2 81.3 - 96.4 fL [facility] MCH 31.2 27.1 - 33.3 pg [facility] MCHC 34.2 32.3 - 35.7 g/dL [facility] RDW CV 12.5 11.1 - 14.9 % [facility] RDW SD 41.9 35.7 - 48.1 fL [facility] NRBC abs 0.00 0.00 - 0.01 K/cumm [facility] Blood 10/26/2023 2:21 AM CEMENT CUTTER 10/26/2023 2:40 AM CEMENT CUTTER Tia Nolan NP LAB BLOOD ORDERABLES F inal Result Performing Organization Address [facility] Co de Phone Number [facility] Department [place] [address] * Phosphorus (10/26/2023 2:21 AM CEMENT CUTTER) [facility] Phosphorus, pl 2.3 2.3 - 4.5 mg/dL [facility] Blood 10/26/2023 2:21 AM CEMENT CUTTER 10/26/2023 2:40 AM CEMENT CUTTER Tia Nolan NP LAB BLOOD ORDERABLES F inal Result Performing Organization Address City/State/[facility] Co de Phone Number [facility] Department [place] [address] * Magnesium (10/26/2023 2:21 AM CEMENT CUTTER) Magnesium 1.8 1.4 - 2.5 mg/dL [facility] Blood 10/26/2023 2:21 AM CEMENT CUTTER 10/26/2023 2:40 AM CEMENT CUTTER Tia Nolan BUSINESS INFORMATION MANAGER LAB BLOOD ORDERABLES F inal Result Performing Organization Address [facility] de Phone Number [facility] [place] [address] * Potassium, whole blood (10/25/2023 10:11 PM CEMENT CUTTER) Potassium, bld 3.5 3.3 - 4.9 mmol/L [facility] Blood 10/25/2023 10:1 1 PM CEMENT CUTTER 10/25/2023 10:19 PM CEMENT CUTTER Tia Nolan BUSINESS INFORMATION MANAGER LAB BLOOD ORDERABLES F inal Result Performing Organization Address [facility] Co de Phone Number [facility] Department [place] [address] * Critical Care (10/25/2023 9:09 PM CEMENT CUTTER) Narrative Wilder Arceo Jr., MD - 10/25/2023 9:09 PM CEMENT CUTTER Tia Nolan NP ? 10/26/2023 12:17 AM [...] plan with the patient's team and other medical/small business consultant staff. This time was in addition [...] Final Result * eGFR (10/25/2023 8:41 PM CEMENT CUTTER) [facility] eGFR >90 >=60 mL/min/1. 73 m2 [facility] [...] last reviewed 2021. Blood 10/25/2023 8:41 PM CEMENT CUTTER 10/25/2023 8:58 PM CEMENT CUTTER us Oneyda Foley NP LAB BLOOD ORDERABLES Final Res ult [facility] Department [place] [address] * (ABNORMAL) Differential, auto (10/25/2023 8:41 PM CEMENT CUTTER) Neutrophil abs 7.3(H) 1.5 - 6.5 K/cumm [facility] Imm gran abs 0.1 0.0 - 0.1 K/cumm [facility] Lymphocyte abs 1.6 0.8 - 3.3 K/cumm [facility] Monocyte abs 0.8 0.2 - 0.8 K/cumm [facility] Eosinophil abs 0.3 0.0 - 0.5 K/cumm [facility] Basophil abs 0.0 0.0 - 0.1 K/cumm [facility] Neutrophil pct 72.9 % [facility] Comment: Interpretive Data Percent cell count reference ranges are not reported, since discordance with absolute values may lead to misinterpretation of CBC data. Current Interpretive Data was last revised on 2018. Imm gran pct 0.5 % [facility] Comment: Interpretive Data Percent cell count reference ranges are not reported, since discordance with absolute values may lead to misinterpretation of CBC data. Current Interpretive Data was last revised on 2018. Lymphocyte pct 15.7 % [facility] Comment: Interpretive Data Percent cell count reference ranges are not reported, since discordance with absolute values may lead to misinterpretation of CBC data. Current Interpretive Data was last revised on 2018. Monocyte pct 7.8 % [facility] Comment: Interpretive Data Percent cell count reference ranges are not reported, since discordance with absolute values may lead to misinterpretation of CBC data. Current Interpretive Data was last revised on 2018. Eosinophil pct 2.7 % [facility] Comment: Interpretive Data Percent cell count reference ranges are not reported, since discordance with absolute values may lead to misinterpretation of CBC data. Current Interpretive Data was last revised on 2018. Basophil pct 0.4 % [facility] Comment: Interpretive Data Percent cell count reference ranges are not reported, since discordance with absolute values may lead to misinterpretation of CBC data. Current Interpretive Data was last revised on 2018. Blood 10/25/2023 8:41 PM CEMENT CUTTER 10/25/2023 8:58 PM CEMENT CUTTER Oneyda Foley BUSINESS INFORMATION MANAGER LAB BLOOD ORDERABLES Final Res ult Performing Organization Address [facility] Co de Phone Number [facility] Department [place] [address] * (ABNORMAL) CBC with auto differential (10/25/2023 8:41 PM CEMENT CUTTER) WBC 10.0(H) 3.8 - 9.9 K/cumm [facility] Hgb 7.0(L) 13.0 - 17.5 g/dL [facility] Hct 19.7(L) 38.9 - 50.3 % [facility] Plt 320 150 - 400 K/cumm [facility] MPV 11.6 9.1 - 12.3 fL [facility] RBC 2.14(L) 4.30 - 5.80 M/cumm [facility] MCV 92.1 81.3 - 96.4 fL [facility] MCH 32.7 27.1 - 33.3 pg [facility] MCHC 35.5 32.3 - 35.7 g/dL [facility] RDW CV 12.6 11.1 - 14.9 % [facility] RDW SD 42.2 35.7 - 48.1 fL [facility] NRBC abs 0.00 0.00 - 0.01 K/cumm [facility] Blood 10/25/2023 8:41 PM CEMENT CUTTER 10/25/2023 8:58 PM CEMENT CUTTER Tia Nolan BUSINESS INFORMATION MANAGER LAB BLOOD ORDERABLES F inal Result Performing Organization Address [facility]/ZIP Co de Phone Number [facility] Department [place] [address] * (ABNORMAL) Basic metabolic panel (10/25/2023 8:41 PM CEMENT CUTTER) Sodium 133(L) 135 - 145 mmol/L [facility] Potassium, pl See Comment 3.3 - 4.9 mmol/L [facility] Comment:Credited; Hemolyzed Specimen Chloride 103 97 - 110 mmol/L [facility] CO2 26 22 - 32 mmol/L [facility] Anion gap 4 2 - 15 mmol/L [facility] BUN 13 6 - 25 mg/dL [facility] Creatinine 0.86 0.80 - 1.30 mg/dL [facility] Glucose 157 70 - 199 mg/dL [facility] Comment: Interpretive Data Fasting glucose >/= [...] 2022. Calcium 7.8(L) 8.5 - 10.3 mg/dL [facility] Blood 10/25/2023 8:41 PM CEMENT CUTTER 10/25/2023 8:58 PM CEMENT CUTTER Tia Nolan NP LAB BLOOD ORDERABLES F inal Result [facility] Department [place] [address] * POCT glucose (10/25/2023 7:22 PM CEMENT CUTTER) Pathologist [facility] Glucose, POC 162 70 - 199 mg/dL [facility] Blood 10/25/2023 7:22 PM CEMENT CUTTER 10/25/2023 7:22 PM CEMENT CUTTER us Hayder Vu Jr., MD LAB POCT ORDERABLES - DEVICE Final Result [facility] Department [place] [address] * Critical Care (10/25/2023 6:45 PM CEMENT CUTTER) Narrative Luana Brady NP - 10/25/2023 6:45 PM CEMENT CUTTER Luana Brady NP ? 10/25/2023 ??6:45 PM [...] plan with the patient's team and other medical/small business consultant staff. This time was in addition to and separate from care provided by other practitioners on this day of service. ?? us Luana Brady NP IN CLINIC/BEDSIDE ORDERABLES Final Result * (ABNORMAL) aPTT (10/25/2023 4:59 PM CEMENT CUTTER) [facility] aPTT 62(H) 28 - 38 sec [facility] Comment: Interpretive Data Heparin therapeutic range: 66.0 - 100.0 seconds. Range based on correlation with therapeutic heparin activity range of 0.3 - 0.7 Units/mL. Current interpretive data was last revised on 2023. Blood 10/25/2023 4:59 PM CEMENT CUTTER 10/25/2023 5:12 PM CEMENT CUTTER Narrative [facility] - 10/25/2023 5:34 PM CEMENT CUTTER Draw STAT PTT 6 hrs after initiation of heparin infusion, draw STAT PTT 6 hours after each dose change, and every 6 hours until 2 consecutive PTTs are within therapeutic range. Once two consecutive PTT's are therapeutic (66-100 seconds), then draw PTT every AM until heparin is discontinued. us Hayder Vu Jr., MD LAB BLOOD ORDERABLE S Final Result Performing Organization Address [facility] Co de Phone Number [facility] [place] [address] * POCT glucose (10/25/2023 3:09 PM CEMENT CUTTER) Glucose, POC 118 70 - 199 mg/dL [facility] Blood 10/25/2023 3:09 PM CEMENT CUTTER 10/25/2023 3:09 PM CEMENT CUTTER us Hayder Vu Jr., MD LAB POCT ORDERABLES - DEVICE Final Result Performing Organization Address [facility] de Phone Number [facility] [place] [address] * MRI Brain Epilepsy W WO Contrast (10/25/2023 1:55 PM CEMENT CUTTER) Anatomical Region Laterality Modality Head and Neck N/A Magnetic Resonan ce 10/25/2023 2:57 PM CEMENT CUTTER Impressions 10/25/2023 3:42 PM CEMENT CUTTER 1. ??Thin bilateral convexity subdural hematomas, not [...] Francia Schmitz M.D. Narrative 10/25/2023 3:42 PM CEMENT CUTTER EXAMINATION: Magnetic resonance imaging (MRI) of the [...] Result * POCT glucose (10/25/2023 10:57 AM CEMENT CUTTER) [facility] Glucose, POC 195 70 - 199 mg/dL [facility] Blood 10/25/2023 10:5 7 AM CEMENT CUTTER 10/25/2023 10:57 AM CEMENT CUTTER Hayder Vu Jr., MD LAB POCT ORDERABLES - DEVICE Final Result [facility] Department [place] [address] * (ABNORMAL) Differential, auto (10/25/2023 10:14 AM CEMENT CUTTER) Pathologist [facility] Neutrophil abs 10.6(H) 1.5 - 6.5 K/cumm [facility] Imm gran abs 0.1 0.0 - 0.1 K/cumm [facility] Lymphocyte abs 1.5 0.8 - 3.3 K/cumm [facility] Monocyte abs 0.9(H) 0.2 - 0.8 K/cumm [facility] Eosinophil abs 0.2 0.0 - 0.5 K/cumm [facility] Basophil abs 0.1 0.0 - 0.1 K/cumm [facility] Neutrophil pct 79.5 % [facility] Comment: Interpretive Data Percent cell count reference ranges are not reported, since discordance with absolute values may lead to misinterpretation of CBC data. Current Interpretive Data was last revised on 2018. Imm gran pct 0.5 % [facility] Comment: Interpretive Data Percent cell count reference ranges are not reported, since discordance with absolute values may lead to misinterpretation of CBC data. Current Interpretive Data was last revised on 2018. Lymphocyte pct 11.3 % [facility] Comment: Interpretive Data Percent cell count reference ranges are not reported, since discordance with absolute values may lead to misinterpretation of CBC data. Current Interpretive Data was last revised on 2018. Monocyte pct 6.9 % [facility] Comment: Interpretive Data Percent cell count reference ranges are not reported, since discordance with absolute values may lead to misinterpretation of CBC data. Current Interpretive Data was last revised on 2018. Eosinophil pct 1.1 % [facility] Comment: Interpretive Data Percent cell count reference ranges are not reported, since discordance with absolute values may lead to misinterpretation of CBC data. Current Interpretive Data was last revised on 2018. Basophil pct 0.7 % [facility] Comment: Interpretive Data Percent cell count reference ranges are not reported, since discordance with absolute values may lead to misinterpretation of CBC data. Current Interpretive Data was last revised on 2018. Blood 10/25/2023 10:1 4 AM CEMENT CUTTER 10/25/2023 10:27 AM CEMENT CUTTER us Hayder Vu Jr., MD LAB BLOOD ORDERABLE S Final Result [facility] Department [place] [address] * (ABNORMAL) aPTT (10/25/2023 10:14 AM CEMENT CUTTER) aPTT 60(H) 28 - 38 sec [facility] Comment: Interpretive Data Heparin therapeutic range: 66.0 - 100.0 seconds. Range based on correlation with therapeutic heparin activity range of 0.3 - 0.7 Units/mL. Current interpretive data was last revised on 2023. Blood 10/25/2023 10:1 4 AM CEMENT CUTTER 10/25/2023 10:27 AM CEMENT CUTTER Narrative [facility] - 10/25/2023 10:56 AM CEMENT CUTTER Draw STAT PTT 6 hrs after initiation of heparin infusion, draw STAT PTT 6 hours after each dose change, and every 6 hours until 2 consecutive PTTs are within therapeutic range. Once two consecutive PTT's are therapeutic (66-100 seconds), then draw PTT every AM until heparin is discontinued. us Hayder Vu Jr., MD LAB BLOOD ORDERABLE S Final Result [facility] Department [place] [address] * (ABNORMAL) CBC with auto differential (10/25/2023 10:14 AM CEMENT CUTTER) WBC 13.3(H) 3.8 - 9.9 K/cumm [facility] Hgb 8.2(L) 13.0 - 17.5 g/dL [facility] Hct 24.1(L) 38.9 - 50.3 % [facility] Plt 367 150 - 400 K/cumm [facility] MPV 11.0 9.1 - 12.3 fL [facility] RBC 2.57(L) 4.30 - 5.80 M/cumm [facility] MCV 93.8 81.3 - 96.4 fL [facility] MCH 31.9 27.1 - 33.3 pg [facility] MCHC 34.0 32.3 - 35.7 g/dL [facility] RDW CV 12.4 11.1 - 14.9 % [facility] RDW SD 43.0 35.7 - 48.1 fL [facility] NRBC abs 0.00 0.00 - 0.01 K/cumm [facility] Blood 10/25/2023 10:1 4 AM CEMENT CUTTER 10/25/2023 10:27 AM CEMENT CUTTER us Hayder Vu Jr., MD LAB BLOOD ORDERABLE S Final Result [facility] Department [place] [address] * XR Chest 1 View (10/25/2023 9:52 AM CEMENT CUTTER) Anatomical Region Laterality Modality Body, Chest N/A Computed Radiogr aphy 10/25/2023 11:1 3 AM CEMENT CUTTER Impressions 10/25/2023 11:23 AM CEMENT CUTTER Comparison made to chest radiograph 10/22/2023 at [...] Keely Williamson M.D. Narrative 10/25/2023 11:23 AM CEMENT CUTTER EXAMINATION: 1 view chest radiograph Procedure Note [...] Result * POCT glucose (10/25/2023 6:58 AM CEMENT CUTTER) Glucose, POC 129 70 - 199 mg/dL [facility] Blood 10/25/2023 6:58 AM CEMENT CUTTER 10/25/2023 6:58 AM CEMENT CUTTER us Hayder Vu Jr., MD LAB POCT ORDERABLES - DEVICE Final Result Performing Organization Address [facility] Co de Phone Number [facility] [place] [address] * POCT glucose (10/25/2023 3:44 AM CEMENT CUTTER) Glucose, POC 102 70 - 199 mg/dL [facility] Blood 10/25/2023 3:44 AM CEMENT CUTTER 10/25/2023 3:44 AM CEMENT CUTTER us Hayder Vu Jr., MD LAB POCT ORDERABLES - DEVICE Final Result Performing Organization Address [facility] Phone Number [facility] Department [place] [address] * (ABNORMAL) aPTT (10/25/2023 3:14 AM CEMENT CUTTER) aPTT 47(H) 28 - 38 sec [facility] Comment: Interpretive Data Heparin therapeutic range: 66.0 - 100.0 seconds. Range based on correlation with therapeutic heparin activity range of 0.3 - 0.7 Units/mL. Current interpretive data was last revised on 2023. Blood 10/25/2023 3:14 AM CEMENT CUTTER 10/25/2023 3:25 AM CEMENT CUTTER Narrative [facility] - 10/25/2023 3:47 AM CEMENT CUTTER Draw STAT PTT 6 hrs after initiation of heparin infusion, draw STAT PTT 6 hours after each dose change, and every 6 hours until 2 consecutive PTTs are within therapeutic range. Once two consecutive PTT's are therapeutic (66-100 seconds), then draw PTT every AM until heparin is discontinued. us Hayder Vu Jr., MD LAB BLOOD ORDERABLE S Final Result Performing Organization Address [facility] de Phone Number [facility] Department [place] [address] * POCT glucose (10/24/2023 11:45 PM CEMENT CUTTER) Glucose, POC 141 70 - 199 mg/dL [facility] Blood 10/24/2023 11:4 5 PM CEMENT CUTTER 10/24/2023 11:45 PM CEMENT CUTTER Hayder Vu Jr., MD LAB POCT ORDERABLES - DEVICE Final Result Performing Organization Address [facility] Co de Phone Number [facility] Department [place] [address] * Critical Care (10/24/2023 11:00 PM CEMENT CUTTER) Narrative Wilder Arceo Jr., MD - 10/24/2023 11:00 PM CEMENT CUTTER Wilder Arceo Jr., MD ? 10/25/2023 12:47 [...] plan with the ICU team and other medical/small business consultant staff, making frequent assessments and decisions [...] Acute pain/acute postoperative pain and Seizure ?? [id number] mycardial infarction (Non-STEMI) and Cardiac arrest ?? [...] * (ABNORMAL) Calcium, ionized (10/24/2023 9:11 PM CEMENT CUTTER) Pathologist [facility] Calcium, Ionized 4.38(L) 4.50 - 5.10 mg/dL [facility] Blood 10/24/2023 9:11 PM CEMENT CUTTER 10/24/2023 9:18 PM CEMENT CUTTER Hayder Vu Jr., MD LAB BLOOD ORDERABLE S Final Result Performing Organization Address City/[facility]/ZIP Co de Phone Number [facility] [place] [address] * POCT glucose (10/24/2023 7:42 PM CEMENT CUTTER) Pathologist [facility] Glucose, POC 122 70 - 199 mg/dL [facility] Blood 10/24/2023 7:42 PM CEMENT CUTTER 10/24/2023 7:42 PM CEMENT CUTTER Hayder Vu Jr., MD LAB POCT ORDERABLES - DEVICE Final Result Performing Organization Address City/[facility]/ZIP Co de Phone Number [facility] [place] [address] * (ABNORMAL) Basic metabolic panel (10/24/2023 7:06 PM CEMENT CUTTER) Sodium 136 135 - 145 mmol/L [facility] Potassium, pl 3.7 3.3 - 4.9 mmol/L [facility] Chloride 104 97 - 110 mmol/L [facility] CO2 25 22 - 32 mmol/L [facility] Anion gap 7 2 - 15 mmol/L [facility] BUN 13 6 - 25 mg/dL [facility] Creatinine 0.94 0.80 - 1.30 mg/dL [facility] Glucose 126 70 - 199 mg/dL [facility] Comment: Interpretive Data Fasting glucose >/= [...] 2022. Calcium 8.1(L) 8.5 - 10.3 mg/dL [facility] Blood 10/24/2023 7:06 PM CEMENT CUTTER 10/24/2023 7:12 PM CEMENT CUTTER us Hayder Vu Jr., MD LAB BLOOD ORDERABLE S Final Result [facility] Department [place] [address] * eGFR (10/24/2023 7:06 PM CEMENT CUTTER) eGFR 86 >=60 mL/min/1. 73 m2 [facility] Comment: Interpretive Data Reference Interval Normal ?>/= [...] last reviewed 2021. Blood 10/24/2023 7:06 PM CEMENT CUTTER 10/24/2023 7:16 PM CEMENT CUTTER us Hayder Vu Jr., MD LAB BLOOD ORDERABLE S Final Result [facility] One [facility] Department [place] [address] * (ABNORMAL) Differential, auto (10/24/2023 7:06 PM CEMENT CUTTER) Neutrophil abs 10.4(H) 1.5 - 6.5 K/cumm [facility] Imm gran abs 0.1 0.0 - 0.1 K/cumm [facility] Lymphocyte abs 1.2 0.8 - 3.3 K/cumm [facility] Monocyte abs 0.9(H) 0.2 - 0.8 K/cumm [facility] Eosinophil abs 0.1 0.0 - 0.5 K/cumm [facility] Basophil abs 0.1 0.0 - 0.1 K/cumm [facility] Neutrophil pct 82.0 % [facility] Comment: Interpretive Data Percent cell count reference ranges are not reported, since discordance with absolute values may lead to misinterpretation of CBC data. Current Interpretive Data was last revised on 2018. Imm gran pct 0.5 % [facility] Comment: Interpretive Data Percent cell count reference ranges are not reported, since discordance with absolute values may lead to misinterpretation of CBC data. Current Interpretive Data was last revised on 2018. Lymphocyte pct 9.7 % [facility] Comment: Interpretive Data Percent cell count reference ranges are not reported, since discordance with absolute values may lead to misinterpretation of CBC data. Current Interpretive Data was last revised on 2018. Monocyte pct 6.9 % [facility] Comment: Interpretive Data Percent cell count reference ranges are not reported, since discordance with absolute values may lead to misinterpretation of CBC data. Current Interpretive Data was last revised on 2018. Eosinophil pct 0.4 % [facility] Comment: Interpretive Data Percent cell count reference ranges are not reported, since discordance with absolute values may lead to misinterpretation of CBC data. Current Interpretive Data was last revised on 2018. Basophil pct 0.5 % [facility] Comment: Interpretive Data Percent cell count reference ranges are not reported, since discordance with absolute values may lead to misinterpretation of CBC data. Current Interpretive Data was last revised on 2018. Blood 10/24/2023 7:0 6 PM CEMENT CUTTER 10/24/2023 7:16 PM CEMENT CUTTER us Oneyda Foley BUSINESS INFORMATION MANAGER LAB BLOOD ORDERABLES Final Res ult [facility] [place] [address] * Phosphorus (10/24/2023 7:06 PM CEMENT CUTTER) Phosphorus, pl 3.3 2.3 - 4.5 mg/dL [facility] Blood 10/24/2023 7:06 PM CEMENT CUTTER 10/24/2023 7:12 PM CEMENT CUTTER us Tia Nolan BUSINESS INFORMATION MANAGER LAB BLOOD ORDERABLES F inal Result [facility] Department [place] [address] * Magnesium (10/24/2023 7:06 PM CEMENT CUTTER) Pathologist [facility] Magnesium 2.1 1.4 - 2.5 mg/dL [facility] Blood 10/24/2023 7:06 PM CEMENT CUTTER 10/24/2023 7:12 PM CEMENT CUTTER Tia Nolan BUSINESS INFORMATION MANAGER LAB BLOOD ORDERABLES F inal Result Performing Organization Address City/[facility]/ZIP Co de Phone Number [facility] Department [place] [address] * (ABNORMAL) CBC with auto differential (10/24/2023 7:06 PM CEMENT CUTTER) [facility] WBC 12.7(H) 3.8 - 9.9 K/cumm [facility] Hgb 7.6(L) 13.0 - 17.5 g/dL [facility] Hct 22.1(L) 38.9 - 50.3 % [facility] Plt 332 150 - 400 K/cumm [facility] MPV 10.8 9.1 - 12.3 fL [facility] RBC 2.42(L) 4.30 - 5.80 M/cumm [facility] MCV 91.3 81.3 - 96.4 fL [facility] MCH 31.4 27.1 - 33.3 pg [facility] MCHC 34.4 32.3 - 35.7 g/dL [facility] RDW CV 12.5 11.1 - 14.9 % [facility] RDW SD 42.5 35.7 - 48.1 fL [facility] NRBC abs 0.00 0.00 - 0.01 K/cumm [facility] Blood 10/24/2023 7:06 PM CEMENT CUTTER 10/24/2023 7:16 PM CEMENT CUTTER Tia Nolan BUSINESS INFORMATION MANAGER LAB BLOOD ORDERABLES F inal Result Performing Organization Address City/[facility]/ZIP Co de Phone Number [facility] Department [place] [address] * aPTT (10/24/2023 7:06 PM CEMENT CUTTER) aPTT 35 28 - 38 sec [facility] Comment: Interpretive Data Heparin therapeutic range: 66.0 - 100.0 seconds. Range based on correlation with therapeutic heparin activity range of 0.3 - 0.7 Units/mL. Current interpretive data was last revised on 2023. Blood 10/24/2023 7:06 PM CEMENT CUTTER 10/24/2023 7:13 PM CEMENT CUTTER Oneyda Foley NP LAB BLOOD ORDERABLES Final Res ult Performing Organization Address [facility] [place] [address] * (ABNORMAL) Protime-INR (10/24/2023 7:06 PM CEMENT CUTTER) Pathologist [facility] PT 13.8(H) 10.3 - 13.7 sec [facility] INR 1.21(H) 0.90 - 1.20 [facility] Comment: Interpretive data Oral anticoagulant therapeutic ranges: Venous thromboembolism prophylaxis or treatment: 2.0-3.0 CARDIOLOGY Standard range: 2.0-3.0 High-intensity range: 2.5-3.5 Refer to indication-specific guidelines for appropriate target ranges for prosthetic heart valve replacement. Current interpretive data was last revised on 2019. Blood 10/24/2023 7:06 PM CEMENT CUTTER 10/24/2023 7:13 PM CEMENT CUTTER Oneyda Foley NP LAB BLOOD ORDERABLES Final Res ult Performing Organization Address [facility] [place] [address] * POCT glucose (10/24/2023 2:58 PM CEMENT CUTTER) Glucose, POC 122 70 - 199 mg/dL [facility] Blood 10/24/2023 2:58 PM CEMENT CUTTER 10/24/2023 2:58 PM CEMENT CUTTER Hayder Vu Jr., MD LAB POCT ORDERABLES - DEVICE Final Result Performing Organization Address [facility] [place] [address] * aPTT (10/24/2023 12:18 PM CEMENT CUTTER) aPTT 35 28 - 38 sec [facility] Comment: Interpretive Data Heparin therapeutic range: 66.0 - 100.0 seconds. Range based on correlation with therapeutic heparin activity range of 0.3 - 0.7 Units/mL. Current interpretive data was last revised on 2023. Blood 10/24/2023 12:1 8 PM CEMENT CUTTER 10/24/2023 12:30 PM CEMENT CUTTER Narrative [facility] - 10/24/2023 12:55 PM CEMENT CUTTER Draw STAT PTT 6 hrs after initiation of heparin infusion, draw STAT PTT 6 hours after each dose change, and every 6 hours until 2 consecutive PTTs are within therapeutic range. Once two consecutive PTT's are therapeutic (66-100 seconds), then draw PTT every AM until heparin is discontinued. Hayder Vu Jr., MD LAB BLOOD ORDERABLE S Final Result Performing Organization Address [facility] de Phone Number [facility] [place] [address] * TRANSTHORACIC ECHO (TTE) COMPLETE W DOPPLER/CF W CONTRAST (10/24/2023 11:43 AM CEMENT CUTTER) Pathologist [facility] LV EF 70 % CARDIOREPORT Anatomical Region Laterality Modality Ultrasound 10/24/2023 7:00 AM CEMENT CUTTER Narrative 10/24/2023 12:10 PM CEMENT CUTTER Patient name: Hira Evans Date of test: 10/24/2023 Type of test: TTE w/Doppler [facility] #: 0 Date of : 1950 (M) J2E[employer] Software Engineer: Krystal Wasserman RDCS Referring Physician: HAYDER VU MD Contrast Agent: 1.1 ml Optison Administered, (1.9 ml wasted). Contrast Administered by: icu nurse Supervised/Interpreted by: Woody White MD Diagnosis: Location: [facility] Reason for test: Post arrest, [...] 2=Hypo 3=Akinetic 4=Dyskin./Aneurysm 0=Not visualized) Parasternal [place]:MAS=1 BAS=1 MIL=1 HIPOLITO=1 Parasternal Short [place]:MAS=1 MIS=1 ME=1 MIL=1 MAL=1 MA=1 Apical 4 Chambers:=1 MIS=1 BIS=1 BAL=1 MAL=1 AL=1 AC=1 Apical 2 Chambers:AI=1 ME=1 BI=1 BA=1 MA=1 AA=1 AC=1 LV Global [...] MD By signing this report, the attending planning official certifies that he or she has personally supervised and interpreted the echocardiogram and has reviewed and or edited and agrees with the written comments contained within the report. Procedure Note Woody Hidalgo MD - 10/24/2023 Patient name: Hira Evans Date of test: 10/24/2023 Type of test: TTE w/Doppler [facility] #: 0 Date of : 1950 (M) J2Ee Software Engineer: Krystal Wasserman [facility] Referring Physician: HAYDER VU MD Contrast Agent: 1.1 ml Optison Administered, (1.9 ml wasted). Contrast Administered by: icu nurse Supervised/Interpreted by: Woody White MD Diagnosis: Location: [facility] Reason for test: Post arrest, [...] 2=Hypo 3=Akinetic 4=Dyskin./Aneurysm 0=Not visualized) Parasternal [place]:MAS=1 BAS=1 MIL=1 HIPOLITO=1 Parasternal [place]:MAS=1 MIS=1 ME=1 MIL=1 MAL=1 MA=1 Apical 4 Chambers:=1 MIS=1 BIS=1 BAL=1 MAL=1 AL=1 AC=1 Apical 2 Chambers:AI=1 ME=1 BI=1 BA=1 MA=1 AA=1 AC=1 LV Global [...] MD By signing this report, the attending planning official certifies that he or she has personally supervised and interpreted the echocardiogram and has reviewed and or edited and agrees with the written comments contained within the report. Hayder Vu Jr., MD CV ECHO PROCEDURES Final Result * POCT glucose (10/24/2023 11:04 AM CEMENT CUTTER) [facility] Signature Glucose, POC 121 70 - 199 mg/dL [facility] Blood 10/24/2023 11:0 4 AM CEMENT CUTTER 10/24/2023 11:04 AM CEMENT CUTTER Hayder Vu Jr., MD LAB POCT ORDERABLES - DEVICE Final Result [facility] One [facility] [place] [address] * (ABNORMAL) Troponin I high-sensitivity 6-hour (10/24/2023 9:39 AM CEMENT CUTTER) Trop I hs 133(H) <=35 ng/L [facility] Comment: Interpretive Data For further hscTnI resources including the diagnostic algorithm and an aid in interpretation, copy and paste this link: [email or web address]/show/[email or web address] Current Interpretive Data last revised 2020. Previous critical value noted within 48 hours ago. Trop I hs pct delta -35(C) % [facility] Trop I hs interp Significa nt(C) [facility] Blood 10/24/2023 9:39 AM CEMENT CUTTER 10/24/2023 9:54 AM CEMENT CUTTER us Hayder Vu Jr., MD LAB BLOOD ORDERABLE S Edited Result - Final Performing Organization Address City/[facility]/[place] [address] * (ABNORMAL) Troponin I high-sensitivity (10/24/2023 8:32 AM CEMENT CUTTER) Pathologist [facility] Trop I hs 153(H) <=35 ng/L [facility] Comment: Interpretive Data For further hscTnI resources including the diagnostic algorithm and an aid in interpretation, copy and paste this link: [email or web address]/show/[email or web address] Current Interpretive Data last revised 2020. Blood 10/24/2023 8:32 AM CEMENT CUTTER 10/24/2023 8:59 AM CEMENT CUTTER us Veronica MESA LAB BLOOD ORDERABLES Fi nal Result [facility] [place] [address] * POCT glucose (10/24/2023 7:31 AM CEMENT CUTTER) Glucose, POC 111 70 - 199 mg/dL [facility] Blood 10/24/2023 7:31 AM CEMENT CUTTER 10/24/2023 7:31 AM CEMENT CUTTER us Hayder Vu Jr., MD LAB POCT ORDERABLES - DEVICE Final Result Performing Organization Address City/State/[facility] Co de Phone Number [facility] One [facility] Department [place] [address] * Critical Care (10/24/2023 6:48 AM CEMENT CUTTER) Narrative Avel Bourne MD - 10/24/2023 6:48 AM CEMENT CUTTER Rob Langley NP ? 10/24/2023 ??5:31 PM [...] plan with the ICU team and other medical/small business consultant staff, making frequent assessments and decisions [...] the following conditions: ?? us Rob Langley BUSINESS INFORMATION MANAGER IN CLINIC/BEDS ADELE ORDERABLES Final Result * aPTT (10/24/2023 5:38 AM CEMENT CUTTER) aPTT 30 28 - 38 sec [facility] Comment: Interpretive Data Heparin therapeutic range: 66.0 - 100.0 seconds. Range based on correlation with therapeutic heparin activity range of 0.3 - 0.7 Units/mL. Current interpretive data was last revised on 2023. Blood 10/24/2023 5:38 AM CEMENT CUTTER 10/24/2023 5:43 AM CEMENT CUTTER Narrative [facility] - 10/24/2023 6:06 AM CEMENT CUTTER Draw STAT PTT 6 hrs after initiation of heparin infusion, draw STAT PTT 6 hours after each dose change, and every 6 hours until 2 consecutive PTTs are within therapeutic range. Once two consecutive PTT's are therapeutic (66-100 seconds), then draw PTT every AM until heparin is discontinued. us Hayder Vu Jr., MD LAB BLOOD ORDERABLE S Final Result Performing Organization Address [facility] Co de Phone Number [facility] [place] [address] * (ABNORMAL) Troponin I high-sensitivity 2-hour (10/24/2023 5:38 AM CEMENT CUTTER) Trop I hs 195(H) <=35 ng/L [facility] Comment: Previous critical value noted within 48 hours ago. Interpretive Data For further [facility] resources including the diagnostic algorithm and an aid in interpretation, copy and paste this link: [email or web address].[email or web address]/show/[email or web address] Current Interpretive Data last revised 2020. Trop I hs pct delta -5 % [facility] Comment:Previous critical va lue noted within 48 hours ago. Trop I hs interp Equivocal [facility] Comment:Previous critical va lue noted within 48 hours ago. Blood 10/24/2023 5:38 AM CEMENT CUTTER 10/24/2023 5:43 AM CEMENT CUTTER us Hayder Vu Jr., MD LAB BLOOD ORDERABLE S Final Result Performing Organization Address [facility]/ZIP Co de Phone Number [facility] [place] [address] * EEG (10/24/2023 5:02 AM CEMENT CUTTER) Anatomical Region Laterality Modality EEG Narrative 10/24/2023 4:40 PM CEMENT CUTTER Routine EEG Report Patient Name: Hira Evans [facility] Medical Record Number (MRN): [id number] [facility] Record: [id number] Date of (): 1950 EEG Date: 10/24/2023 [...] 32 channel EEG recording acquired on a [employer] EEG-1200 acquisition system. Scalp electrodes were placed [...] * ECG 12 lead (10/24/2023 3:44 AM CEMENT CUTTER) Ventricular Rate EKG/Min 82 BPM [facility] Atrial Rate 82 BPM [facility] MS-Interval (MSEC) 166 ms [facility] QRS-Interval (MSEC) 78 ms [facility] QT-Interval (MSEC) 384 ms [facility] QTc 448 ms [facility] P [place] 34 degrees [facility] R [place] -30 degrees [facility] T [place] -13 degrees [facility] Diagnosis Normal sinus rhythm Left axis deviation Nonspecific ST abnormality Abnormal ECG No previous ECGs available Confirmed by ELLA LASSITER M.D ([id number]) on 10/25/2023 1:12:26 PM [facility] 10/24/2023 3:44 AM CEMENT CUTTER 10/25/2023 1:12 PM CEMENT CUTTER Tia Nolan BUSINESS INFORMATION MANAGER ECG ORDERABLES Final Result [facility] * Critical result callback Cardio chemistry (10/24/2023 3:38 AM CEMENT CUTTER) Date Notified [id number] [facility] Time Notified 451 [facility] Test name Trop I hs [facility] Called/Read Back Edwige Porras [facility] Credentials RN [facility] Called By SB [facility] Blood 10/24/2023 3:38 AM CEMENT CUTTER 10/24/2023 4:02 AM CEMENT CUTTER us Hayder Vu Jr., MD LAB BLOOD ORDERABLE S Final Result [facility] One [facility] Department [place] [address] * (ABNORMAL) Troponin I high-sensitivity series (baseline, 2hr, 4hr, 6hr) (10/24/2023 3:38 AM CEMENT CUTTER) Trop I hs 206(C) <=35 ng/L [facility] Comment: reviewed Interpretive Data For further hscTnI resources including the diagnostic algorithm and an aid in interpretation, copy and paste this link: https://bjhlab.testcatalog.org/show/hsTrop-1 Current Interpretive Data last revised 2020. Blood 10/24/2023 3:38 AM CEMENT CUTTER 10/24/2023 4:02 AM CEMENT CUTTER us Hayder Vu Jr., MD LAB BLOOD ORDERABLE S Final Result Performing Organization Address [facility] Co de Phone Number [facility] [place] [address] * Lactate (10/24/2023 3:38 AM CEMENT CUTTER) [facility] Lactate 0.9 0.7 - 2.0 mmol/L [facility] Blood 10/24/2023 3:38 AM CEMENT CUTTER 10/24/2023 4:02 AM CEMENT CUTTER us Hayder Vu Jr., MD LAB BLOOD ORDERABLE S Final Result Performing Organization Address [facility] Co de Phone Number [facility] Department [place] [address] * POCT glucose (10/24/2023 3:25 AM CEMENT CUTTER) Glucose, POC 180 70 - 199 mg/dL [facility] Blood 10/24/2023 3:25 AM CEMENT CUTTER 10/24/2023 3:25 AM CEMENT CUTTER us Hayder Vu Jr., MD LAB POCT ORDERABLES - DEVICE Final Result Performing Organization Address City/[facility]/ZIP Co de Phone Number [facility] Department [place] [address] * (ABNORMAL) POCT glucose (10/24/2023 12:20 AM CEMENT CUTTER) Pathologist [facility] Glucose, POC 252(H) 70 - 199 mg/dL [facility] Blood 10/24/2023 12:2 0 AM CEMENT CUTTER 10/24/2023 12:20 AM CEMENT CUTTER Hayder Vu Jr., MD LAB POCT ORDERABLES - DEVICE Final Result Performing Organization Address [facility] de Phone Number [facility] [place] [address] * (ABNORMAL) aPTT (10/24/2023 12:20 AM CEMENT CUTTER) Pathologist [facility] aPTT 27(L) 28 - 38 sec [facility] Comment: Interpretive Data Heparin therapeutic range: 66.0 - 100.0 seconds. Range based on correlation with therapeutic heparin activity range of 0.3 - 0.7 Units/mL. Current interpretive data was last revised on 2023. Blood 10/24/2023 12:2 0 AM CEMENT CUTTER 10/24/2023 12:31 AM CEMENT CUTTER Narrative [facility] - 10/24/2023 12:58 AM CEMENT CUTTER Baseline prior to heparin initiation Hayder Vu Jr., MD LAB BLOOD ORDERABLE S Final Result Performing Organization Address [facility] Co de Phone Number [facility] [place] [address] * (ABNORMAL) CBC without differential (10/24/2023 12:20 AM CEMENT CUTTER) WBC 22.9(H) 3.8 - 9.9 K/cumm [facility] Hgb 9.0(L) 13.0 - 17.5 g/dL [facility] Hct 25.4(L) 38.9 - 50.3 % [facility] Plt 366 150 - 400 K/cumm [facility] MPV 10.8 9.1 - 12.3 fL [facility] RBC 2.76(L) 4.30 - 5.80 M/cumm [facility] MCV 92.0 81.3 - 96.4 fL [facility] MCH 32.6 27.1 - 33.3 pg [facility] MCHC 35.4 32.3 - 35.7 g/dL [facility] RDW CV 12.5 11.1 - 14.9 % [facility] RDW SD 41.8 35.7 - 48.1 fL [facility] NRBC abs 0.00 0.00 - 0.01 K/cumm [facility] Blood 10/24/2023 12:2 0 AM CEMENT CUTTER 10/24/2023 12:45 AM CEMENT CUTTER Narrative [facility] - 10/24/2023 12:55 AM CEMENT CUTTER Baseline prior to heparin initiation Hayder Vu Jr., MD LAB BLOOD ORDERABLE S Final Result [facility] One [facility] Department [place] [address] * Protime-INR (10/24/2023 12:20 AM CEMENT CUTTER) PT 13.7 10.3 - 13.7 sec [facility] INR 1.20 0.90 - 1.20 [facility] Comment: Interpretive data Oral anticoagulant therapeutic ranges: Venous thromboembolism prophylaxis or treatment: 2.0-3.0 CARDIOLOGY Standard range: 2.0-3.0 High-intensity range: 2.5-3.5 Refer to indication-specific guidelines for appropriate target ranges for prosthetic heart valve replacement. Current interpretive data was last revised on 2019. Blood 10/24/2023 12:2 0 AM CEMENT CUTTER 10/24/2023 12:31 AM CEMENT CUTTER Narrative [facility] - 10/24/2023 12:58 AM CEMENT CUTTER Baseline prior to heparin initiation Hayder Vu Jr., MD LAB BLOOD ORDERABLE S Final Result Performing Organization Address [facility] Co de Phone Number [facility] [place] [address] * HIV 1/2 Antibody plus p24 Antigen Blood (10/24/2023 12:20 AM CEMENT CUTTER) HIV 1/2 ab + p24 ag Nonreactive Nonreactive [facility] Comment:Nonreactive for HIV- 1 antigen and HIV-1/HIV-2 antibodies. No laboratory evidence of HIV infection. If acute HIV infection is suspected, consider testing for HIV-1 RNA. Current interpretive data was last revised on 22. Blood 10/24/2023 12:2 0 AM CEMENT CUTTER 10/24/2023 12:45 AM CEMENT CUTTER us Hayder Vu Jr., MD LAB MICROBIOLOGY - GENERAL ORDERABLES Final Result Performing Organization Address [facility] Co de Phone Number [facility] Department [place] [address] * CT Chest PE (CTA) Abdomen Pelvis W Contrast (10/23/2023 11:48 PM CEMENT CUTTER) Anatomical Region Laterality Modality Body N/A Computed Tomogra phy 10/24/2023 12:1 1 AM CEMENT CUTTER Impressions 10/24/2023 7:15 AM CEMENT CUTTER 1. ??Acute pulmonary emboli involving the distal [...] Clemente Mathew M.D. Narrative 10/24/2023 7:15 AM CEMENT CUTTER EXAMINATION: CT CHEST PE (CTA) ABDOMEN PELVIS [...] Zhu on 10/24/2023 at 00:11 Dictated by: aR Zhu MD, PHD The radiology attending physician has personally reviewed this study, and had reviewed and/or edited this written report and agrees with it. Electronically signed by: Clemente Mathew M.D. Hayder Vu Jr., MD IMG CT PROCEDURES F inal Result * CT Head WO Contrast (10/23/2023 11:48 PM CEMENT CUTTER) Anatomical Region Laterality Modality Head and Neck N/A Computed Tomogra phy 10/24/2023 12:3 6 AM CEMENT CUTTER Impressions 10/24/2023 11:45 AM CEMENT CUTTER Subtle white matter hypoattenuation with loss of [...] Zac Mcgarry M.D. Narrative 10/24/2023 11:45 AM CEMENT CUTTER EXAMINATION: CT head without contrast HISTORY: 73-year-old [...] at 7:11AM on 10/24/2023. Dictated by: Eric Maritnez M.D. The radiology attending physician has personally reviewed this study, and had reviewed and/or edited this written report and agrees with it. Electronically signed by: Zac Mcgarry M.D. Hayder Vu Jr., MD IMG CT PROCEDURES F inal Result * Critical Care (10/23/2023 11:47 PM CEMENT CUTTER) Narrative Wilder Arceo Jr., MD - 10/23/2023 11:47 PM CEMENT CUTTER Wilder Arceo Jr., MD ? 10/24/2023 ??3:28 [...] plan with the ICU team and other medical/small business consultant staff, making frequent assessments and decisions [...] * (ABNORMAL) Manual Differential (10/23/2023 11:03 PM CEMENT CUTTER) [facility] Signature Differential Auto CERNER BJ Neutrophil abs 23.5(H) 1.5 - 6.5 K/cumm [facility] Imm gran abs 0.9(H) 0.0 - 0.1 K/cumm [facility] Lymphocyte abs 1.1 0.8 - 3.3 K/cumm [facility] Monocyte abs 1.1(H) 0.2 - 0.8 K/cumm [facility] Eosinophil abs 0.1 0.0 - 0.5 K/cumm [facility] Basophil abs 0.1 0.0 - 0.1 K/cumm [facility] Neutrophil pct 88.2 % [facility] Comment: Interpretive Data Percent cell count reference ranges are not reported, since discordance with absolute values may lead to misinterpretation of CBC data. Current Interpretive Data was last revised on 2018. Imm gran pct 3.4 % [facility] Comment: Interpretive Data Percent cell count reference ranges are not reported, since discordance with absolute values may lead to misinterpretation of CBC data. Current Interpretive Data was last revised on 2018. Lymphocyte pct 3.9 % [facility] Comment: Interpretive Data Percent cell count reference ranges are not reported, since discordance with absolute values may lead to misinterpretation of CBC data. Current Interpretive Data was last revised on 2018. Monocyte pct 3.9 % [facility] Comment: Interpretive Data Percent cell count reference ranges are not reported, since discordance with absolute values may lead to misinterpretation of CBC data. Current Interpretive Data was last revised on 2018. Eosinophil pct 0.2 % [facility] Comment: Interpretive Data Percent cell count reference ranges are not reported, since discordance with absolute values may lead to misinterpretation of CBC data. Current Interpretive Data was last revised on 2018. Basophil pct 0.4 % [facility] Comment: Interpretive Data Percent cell count reference ranges are not reported, since discordance with absolute values may lead to misinterpretation of CBC data. Current Interpretive Data was last revised on 2018. RBC morphology Present(A) [facility] Polychromasia 3-7/HPF(A) [facility] Poikilocytosis Slight(A) [facility] Platelet estimate Adequate [facility] Blood 10/23/2023 11:0 3 PM CEMENT CUTTER 10/23/2023 11:43 PM CEMENT CUTTER Jimenez Henao MD LAB BLOOD ORDERABLES Final Result [facility] One [facility] Department of [place] [address] * (ABNORMAL) Differential, auto (10/23/2023 11:03 PM CEMENT CUTTER) Neutrophil abs 23.5(H) 1.5 - 6.5 K/cumm [facility] Imm gran abs 0.9(H) 0.0 - 0.1 K/cumm [facility] Lymphocyte abs 1.1 0.8 - 3.3 K/cumm [facility] Monocyte abs 1.1(H) 0.2 - 0.8 K/cumm [facility] Eosinophil abs 0.1 0.0 - 0.5 K/cumm [facility] Basophil abs 0.1 0.0 - 0.1 K/cumm [facility] Neutrophil pct 88.2 % [facility] Comment: Interpretive Data Percent cell count reference ranges are not reported, since discordance with absolute values may lead to misinterpretation of CBC data. Current Interpretive Data was last revised on 2018. Imm gran pct 3.4 % [facility] Comment: Interpretive Data Percent cell count reference ranges are not reported, since discordance with absolute values may lead to misinterpretation of CBC data. Current Interpretive Data was last revised on 2018. Lymphocyte pct 3.9 % [facility] Comment: Interpretive Data Percent cell count reference ranges are not reported, since discordance with absolute values may lead to misinterpretation of CBC data. Current Interpretive Data was last revised on 2018. Monocyte pct 3.9 % [facility] Comment: Interpretive Data Percent cell count reference ranges are not reported, since discordance with absolute values may lead to misinterpretation of CBC data. Current Interpretive Data was last revised on 2018. Eosinophil pct 0.2 % [facility] Comment: Interpretive Data Percent cell count reference ranges are not reported, since discordance with absolute values may lead to misinterpretation of CBC data. Current Interpretive Data was last revised on 2018. Basophil pct 0.4 % [facility] Comment: Interpretive Data Percent cell count reference ranges are not reported, since discordance with absolute values may lead to misinterpretation of CBC data. Current Interpretive Data was last revised on 2018. Blood 10/23/2023 11:0 3 PM CEMENT CUTTER 10/23/2023 11:11 PM CEMENT CUTTER us Jimenez Henao MD LAB BLOOD ORDERABLES Final Result [facility] [place] [address] * (ABNORMAL) Blood gas, arterial (10/23/2023 11:03 PM CEMENT CUTTER) pH, Art 7.38 7.35 - 7.45 [facility] PCO2, Arterial 37 35 - 45 mmHg [facility] PO2, Arterial 133(H) 83 - 108 mmHg [facility] HCO3 Art (Calculated) 22 20 - 30 mmol/L [facility] BE, art -3 mmol/L [facility] Comment: Interpretive Data No Reference Range Established Current Interpretive Data was last revised on 2017 O2 Sat Art (Measured) 99(H) 90 - 95 % [facility] Blood 10/23/2023 11:0 3 PM CEMENT CUTTER 10/23/2023 11:10 PM CEMENT CUTTER us Hayder Vu Jr., MD LAB BLOOD ORDERABLE S Final Result [facility] [place] [address] * (ABNORMAL) Calcium, ionized (10/23/2023 11:03 PM CEMENT CUTTER) Calcium, Ionized 4.41(L) 4.50 - 5.10 mg/dL [facility] Blood 10/23/2023 11:0 3 PM CEMENT CUTTER 10/23/2023 11:13 PM CEMENT CUTTER us Hayder Vu Jr., MD LAB BLOOD ORDERABLE S Final Result [facility] Department [place] [address] * (ABNORMAL) CBC with auto differential (10/23/2023 11:03 PM CEMENT CUTTER) [facility] WBC 26.7(H) 3.8 - 9.9 K/cumm [facility] Hgb 9.0(L) 13.0 - 17.5 g/dL [facility] Hct 27.3(L) 38.9 - 50.3 % [facility] Plt 418(H) 150 - 400 K/cumm [facility] MPV 11.3 9.1 - 12.3 fL [facility] RBC 2.88(L) 4.30 - 5.80 M/cumm [facility] MCV 94.8 81.3 - 96.4 fL [facility] Comment:MCV delta due to manpreet gical procedure. Spoke to Edwige Porras RN. MCH 31.3 27.1 - 33.3 pg [facility] MCHC 33.0 32.3 - 35.7 g/dL [facility] RDW CV 12.4 11.1 - 14.9 % [facility] RDW SD 43.5 35.7 - 48.1 fL [facility] NRBC abs 0.00 0.00 - 0.01 K/cumm [facility] Blood 10/23/2023 11:0 3 PM CEMENT CUTTER 10/23/2023 11:11 PM CEMENT CUTTER us Tia Nolan NP LAB BLOOD ORDERABLES E dited Result - Final Performing Organization Address City/[facility]/ZIP Co de Phone Number [facility] Department [place] [address] * (ABNORMAL) Lipid panel (10/23/2023 11:02 PM CEMENT CUTTER) [facility] Cholesterol 162 30 - 199 mg/dL [facility] Comment: Interpretive Data Ages < or [...] on 2018. Triglycerides 134 <=149 mg/dL [facility] Comment: Interpretive Data Ages < or [...] on 2018. HDL 34(L) >=40 mg/dL [facility] Comment: Interpretive Data Ages < or [...] on 2018. LDL, calculated 101 <=129 mg/dL [facility] Comment: Interpretive Data Ages < or = [...] revised on 2018. Non-HDL Cholesterol 128 mg/dL [facility] Comment: Interpretive Data Ages < or = [...] last revised on 2018. Chol/HDL ratio 5 [facility] Blood 10/23/2023 11:0 2 PM CEMENT CUTTER 10/23/2023 11:14 PM CEMENT CUTTER Narrative [facility] - 10/24/2023 11:06 AM CEMENT CUTTER This lipid panel was automatically ordered due to a significant change in Troponin. The dietary status of the patient at the collection time should be correlated with the lipid results. us Hayder Vu Jr., MD LAB BLOOD ORDERABLE S Final Result [facility] Department [place] [address] * eGFR (10/23/2023 11:02 PM CEMENT CUTTER) eGFR 74 >=60 mL/min/1. 73 m2 [facility] Comment: Interpretive Data Reference Interval [...] reviewed 2021. Blood 10/23/2023 11:0 2 PM CEMENT CUTTER 10/23/2023 11:14 PM CEMENT CUTTER Hayder Vu Jr., MD LAB BLOOD ORDERABLE S Final Result Performing Organization Address [facility] Co de Phone Number [facility] [place] [address] * (ABNORMAL) Phosphorus (10/23/2023 11:02 PM CEMENT CUTTER) Pathologist [facility] Phosphorus, pl 4.6(H) 2.3 - 4.5 mg/dL [facility] Blood 10/23/2023 11:0 2 PM CEMENT CUTTER 10/23/2023 11:13 PM CEMENT CUTTER Hayder Vu Jr., MD LAB BLOOD ORDERABLE S Final Result Performing Organization Address [facility] de Phone Number [facility] [place] [address] * Magnesium (10/23/2023 11:02 PM CEMENT CUTTER) [facility] Magnesium 2.0 1.4 - 2.5 mg/dL [facility] Blood 10/23/2023 11:0 2 PM CEMENT CUTTER 10/23/2023 11:13 PM CEMENT CUTTER Hayder Vu Jr., MD LAB BLOOD ORDERABLE S Final Result Performing Organization Address [facility] de Phone Number [facility] [place] [address] * (ABNORMAL) Comprehensive metabolic panel (10/23/2023 11:02 PM CEMENT CUTTER) [facility] Sodium 137 135 - 145 mmol/L [facility] Potassium, pl 4.1 3.3 - 4.9 mmol/L [facility] Chloride 102 97 - 110 mmol/L [facility] CO2 23 22 - 32 mmol/L [facility] Anion gap 12 2 - 15 mmol/L [facility] BUN 12 6 - 25 mg/dL [facility] Creatinine 1.07 0.80 - 1.30 mg/dL [facility] Glucose 245(H) 70 - 199 mg/dL [facility] Comment: Interpretive Data Fasting glucose >/= [...] 2022. Calcium 8.3(L) 8.5 - 10.3 mg/dL [facility] Bilirubin, total 0.6 0.1 - 1.2 mg/dL [facility] Protein, pl 5.9(L) 6.5 - 8.5 g/dL [facility] Albumin 2.6(L) 3.5 - 5.0 g/dL [facility] Alk phos 91 40 - 130 Units/L [facility] ALT 88(H) 7 - 55 Units/L [facility] AST 83(H) 10 - 50 Units/L [facility] Blood 10/23/2023 11:0 2 PM CEMENT CUTTER 10/23/2023 11:13 PM CEMENT CUTTER us Hayder Vu Jr., MD LAB BLOOD ORDERABLE S Final Result [facility] Department [place] [address] * (ABNORMAL) aPTT (10/23/2023 11:02 PM CEMENT CUTTER) aPTT 25(L) 28 - 38 sec [facility] Comment: Interpretive Data Heparin therapeutic range: 66.0 - 100.0 seconds. Range based on correlation with therapeutic heparin activity range of 0.3 - 0.7 Units/mL. Current interpretive data was last revised on 2023. Blood 10/23/2023 11:0 2 PM CEMENT CUTTER 10/23/2023 11:58 PM CEMENT CUTTER Oneyda Foley NP LAB BLOOD ORDERABLES Final Res ult Performing Organization Address [facility] de Phone Number [facility] Department [place] [address] * (ABNORMAL) Protime-INR (10/23/2023 11:02 PM CEMENT CUTTER) PT 13.9(H) 10.3 - 13.7 sec [facility] INR 1.22(H) 0.90 - 1.20 [facility] Comment: Interpretive data Oral anticoagulant therapeutic ranges: Venous thromboembolism prophylaxis or treatment: 2.0-3.0 CARDIOLOGY Standard range: 2.0-3.0 High-intensity range: 2.5-3.5 Refer to indication-specific guidelines for appropriate target ranges for prosthetic heart valve replacement. Current interpretive data was last revised on 2019. Blood 10/23/2023 11:0 2 PM CEMENT CUTTER 10/23/2023 11:58 PM CEMENT CUTTER Oneyda Foley NP LAB BLOOD ORDERABLES Final Res ult Performing Organization Address [facility] Co de Phone Number [facility] Department [place] [address] * (ABNORMAL) POC Blood Gas and Chemistries, Arterial - (10/23/2023 10:39 PM CEMENT CUTTER) pH, Art POC 7.37 7.35 - 7.45 [facility] pCO2, Art POC 38 35 - 45 mmHg [facility] pO2, Art POC 137(H) 83 - 108 mmHg [facility] Na, POC 137 135 - 145 mmol/L [facility] K POC 4.0 3.3 - 4.9 mmol/L [facility] Comment: Interpretive Data This method is not able to assess for hemolysis, which may falsely increase potassium concentrations. If further testing is needed to evaluate this result, consider in-laboratory plasma potassium. Current Interpretive Data was last revised on 2022. Cl, POC 107 97 - 110 mmol/L [facility] Ionized Ca, POC 4.58 4.50 - 5.10 mg/dL [facility] Glucose, POC 247(H) 70 - 199 mg/dL [facility] Lactate, POC 4.6(C) 0.7 - 2.2 mmol/L [facility] SO2 (crys) arterial 100(H) 90 - 95 % [facility] Base excess, POC -3.0 mmol/L [facility] HCO3, Art POC 22 20 - 30 mmol/L [facility] Hct, POC 28.0(L) 41.4 - 51.6 % [facility] O2 Sat, Art POC (Calc) 99 % [facility] Total Hb, POC 9.2(L) 13.8 - 17.2 g/dL [facility] Blood 10/23/2023 10:3 9 PM CEMENT CUTTER 10/23/2023 10:39 PM CEMENT CUTTER Hayder Vu Jr., MD LAB POCT ORDERABLES - DEVICE Final Result [facility] Department [place] [address] * (ABNORMAL) POC Blood Gas and Chemistries, Arterial - (10/23/2023 10:07 PM CEMENT CUTTER) pH, Art POC 7.12(C) 7.35 - 7.45 [facility] pCO2, Art POC 54(H) 35 - 45 mmHg [facility] pO2, Art POC 287(H) 83 - 108 mmHg [facility] Na, POC 137 135 - 145 mmol/L [facility] K POC 4.0 3.3 - 4.9 mmol/L [facility] Comment: Interpretive Data This method is not able to assess for hemolysis, which may falsely increase potassium concentrations. If further testing is needed to evaluate this result, consider in-laboratory plasma potassium. Current Interpretive Data was last revised on 2022. Cl, POC 104 97 - 110 mmol/L [facility] Ionized Ca, POC 4.67 4.50 - 5.10 mg/dL [facility] Glucose, POC 235(H) 70 - 199 mg/dL [facility] Lactate, POC 7.2(C) 0.7 - 2.2 mmol/L [facility] SO2 (crys) arterial 100(H) 90 - 95 % [facility] Base excess, POC -11.4 mmol/L [facility] HCO3, Art POC 16(L) 20 - 30 mmol/L [facility] Hct, POC 29.0(L) 41.4 - 51.6 % [facility] O2 Sat, Art POC (Calc) 100 % [facility] Total Hb, POC 9.5(L) 13.8 - 17.2 g/dL [facility] Blood 10/23/2023 10:0 7 PM CEMENT CUTTER 10/23/2023 10:07 PM CEMENT CUTTER us Pipe Moseley MD LAB POCT ORDERABLES - DEV ICE Final Result [facility] Department [place] [address] * eGFR (10/23/2023 9:52 PM CEMENT CUTTER) eGFR 75 >=60 mL/min/1. 73 m2 [facility] Comment: Interpretive Data Reference Interval Normal ?>/= [...] last reviewed 2021. Blood 10/23/2023 9:52 PM CEMENT CUTTER 10/23/2023 10:01 PM CEMENT CUTTER Myke Smith MD PhD LAB BLOOD ORDERA BLES Final Result [facility] Department [place] [address] * (ABNORMAL) Basic metabolic panel (10/23/2023 9:52 PM CEMENT CUTTER) Sodium 143 135 - 145 mmol/L [facility] Potassium, pl 3.8 3.3 - 4.9 mmol/L [facility] Chloride 102 97 - 110 mmol/L [facility] CO2 20(L) 22 - 32 mmol/L [facility] Anion gap 21(H) 2 - 15 mmol/L [facility] BUN 12 6 - 25 mg/dL [facility] Creatinine 1.06 0.80 - 1.30 mg/dL [facility] Glucose 208(H) 70 - 199 mg/dL [facility] Comment: Interpretive Data Fasting glucose >/= [...] 2022. Calcium 8.9 8.5 - 10.3 mg/dL [facility] Blood 10/23/2023 9:52 PM CEMENT CUTTER 10/23/2023 10:01 PM CEMENT CUTTER Myke Smith MD PhD LAB BLOOD ORDERA BLES Final Result [facility] Department [place] [address] * (ABNORMAL) CBC without differential (10/23/2023 9:52 PM CEMENT CUTTER) WBC 23.8(H) 3.8 - 9.9 K/cumm [facility] Hgb 9.8(L) 13.0 - 17.5 g/dL [facility] Hct 32.0(L) 38.9 - 50.3 % [facility] Plt 458(H) 150 - 400 K/cumm [facility] MPV 11.1 9.1 - 12.3 fL [facility] RBC 3.14(L) 4.30 - 5.80 M/cumm [facility] MCV 101.9(H) 81.3 - 96.4 fL [facility] Comment:MCV delta due to manpreet gical procedure. MCH 31.2 27.1 - 33.3 pg [facility] MCHC 30.6(L) 32.3 - 35.7 g/dL [facility] RDW CV 12.5 11.1 - 14.9 % [facility] RDW SD 46.9 35.7 - 48.1 fL [facility] NRBC abs 0.03(H) 0.00 - 0.01 K/cumm [facility] Blood 10/23/2023 9:52 PM CEMENT CUTTER 10/23/2023 10:02 PM CEMENT CUTTER Myke Smith MD PhD LAB BLOOD ORDERA BLES Final Result [facility] Department [place] [address] * (ABNORMAL) POC Blood Gas and Chemistries, Venous - (10/23/2023 9:50 PM CEMENT CUTTER) pH, Arturo POC 6.99(C) 7.32 - 7.43 [facility] pCO2, arturo POC 84(C) 40 - 50 mmHg [facility] pO2, raturo POC 42 mmHg [facility] Na, POC 139 135 - 145 mmol/L [facility] K POC 5.4(H) 3.3 - 4.9 mmol/L [facility] Comment: Interpretive Data This method is not able to assess for hemolysis, which may falsely increase potassium concentrations. If further testing is needed to evaluate this result, consider in-laboratory plasma potassium. Current Interpretive Data was last revised on 2022. Cl, POC 103 97 - 110 mmol/L [facility] Ionized Ca, POC 4.70 4.50 - 5.10 mg/dL [facility] Glucose, POC 172 70 - 199 mg/dL [facility] Lactate, POC 9.2(C) 0.7 - 2.2 mmol/L [facility] O2 Sat, Arturo POC (Crys) 48 % [facility] Base excess, POC -11.7 mmol/L [facility] Hct, POC 30.0(L) 41.4 - 51.6 % [facility] Total Hb, POC 10.0(L) 13.8 - 17.2 g/dL [facility] O2 Sat, Arturo POC (Calc) 48 % [facility] Blood 10/23/2023 9:50 PM CEMENT CUTTER 10/23/2023 9:50 PM CEMENT CUTTER us Pipe oMseley MD LAB POCT ORDERABLES - DEV ICE Final Result [facility] Department [place] [address] * [place] Fluoroscopy < 1 Hour (10/23/2023 8:45 PM CEMENT CUTTER) Narrative [facility] - 10/23/2023 8:46 PM CEMENT CUTTER The images from this study are not interpreted by Radiology. ??Please refer to the physician's procedure / OR operative note. us Hayder Vu Jr., MD IMG FLUOROSCOPY PRO CEDURES Final Result [email or web address] * eGFR (10/22/2023 9:39 PM CEMENT CUTTER) eGFR 66 >=60 mL/min/1. 73 m2 [facility] [...] last reviewed 2021. Blood 10/22/2023 9:39 PM CEMENT CUTTER 10/22/2023 10:23 PM CEMENT CUTTER Jimenez Henao MD LAB BLOOD ORDERABLES Final Result [facility] Department [place] [address] * (ABNORMAL) Differential, auto (10/22/2023 9:39 PM CEMENT CUTTER) Neutrophil abs 6.2 1.5 - 6.5 K/cumm [facility] Imm gran abs 0.1 0.0 - 0.1 K/cumm [facility] Lymphocyte abs 1.3 0.8 - 3.3 K/cumm [facility] Monocyte abs 1.1(H) 0.2 - 0.8 K/cumm [facility] Eosinophil abs 0.1 0.0 - 0.5 K/cumm [facility] Basophil abs 0.1 0.0 - 0.1 K/cumm [facility] Neutrophil pct 70.2 % [facility] Comment: Interpretive Data Percent cell count reference ranges are not reported, since discordance with absolute values may lead to misinterpretation of CBC data. Current Interpretive Data was last revised on 2018. Imm gran pct 1.0 % [facility] Comment: Interpretive Data Percent cell count reference ranges are not reported, since discordance with absolute values may lead to misinterpretation of CBC data. Current Interpretive Data was last revised on 2018. Lymphocyte pct 14.4 % [facility] Comment: Interpretive Data Percent cell count reference ranges are not reported, since discordance with absolute values may lead to misinterpretation of CBC data. Current Interpretive Data was last revised on 2018. Monocyte pct 12.4 % [facility] Comment: Interpretive Data Percent cell count reference ranges are not reported, since discordance with absolute values may lead to misinterpretation of CBC data. Current Interpretive Data was last revised on 2018. Eosinophil pct 1.4 % [facility] Comment: Interpretive Data Percent cell count reference ranges are not reported, since discordance with absolute values may lead to misinterpretation of CBC data. Current Interpretive Data was last revised on 2018. Basophil pct 0.6 % [facility] [place] Comment: Interpretive Data Percent cell count reference ranges are not reported, since discordance with absolute values may lead to misinterpretation of CBC data. Current Interpretive Data was last revised on 2018. Blood 10/22/2023 9:39 PM CEMENT CUTTER 10/22/2023 10:17 PM CEMENT CUTTER Jimenez Henao MD LAB BLOOD ORDERABLES Final Result Performing Organization Address [facility] Co de Phone Number [facility] [place] [address] * Type and screen (10/22/2023 9:39 PM CEMENT CUTTER) Jigna, indirect Negative ABO Rh O Positive [facility] Blood 10/22/2023 9:39 PM CEMENT CUTTER 10/22/2023 10:24 PM CEMENT CUTTER Narrative [facility] - 10/22/2023 11:35 PM CEMENT CUTTER Has the patient had Daratumumab or Isatuximab in the past 6 months?->Unknown Jimenez Henao MD LAB BLOOD BANK TEST O RDERABLES Final Result Performing Organization Address [facility] [place] [address] * Protime-INR (10/22/2023 9:39 PM CEMENT CUTTER) PT 12.6 10.3 - 13.7 sec [facility] INR 1.11 0.90 - 1.20 [facility] Comment: Interpretive data Oral anticoagulant therapeutic ranges: Venous thromboembolism prophylaxis or treatment: 2.0-3.0 CARDIOLOGY Standard range: 2.0-3.0 High-intensity range: 2.5-3.5 Refer to indication-specific guidelines for appropriate target ranges for prosthetic heart valve replacement. Current interpretive data was last revised on 2019. Blood 10/22/2023 9:39 PM CEMENT CUTTER 10/22/2023 10:26 PM CEMENT CUTTER us Jimenez Henao MD LAB BLOOD ORDERABLES Final Result Performing Organization Address [facility] Co de Phone Number [facility] Department [place] [address] * (ABNORMAL) CBC with auto differential (10/22/2023 9:39 PM CEMENT CUTTER) [facility] WBC 8.8 3.8 - 9.9 K/cumm [facility] Hgb 10.5(L) 13.0 - 17.5 g/dL [facility] Hct 30.7(L) 38.9 - 50.3 % [facility] Plt 378 150 - 400 K/cumm [facility] MPV 10.6 9.1 - 12.3 fL [facility] RBC 3.29(L) 4.30 - 5.80 M/cumm [facility] MCV 93.3 81.3 - 96.4 fL [facility] MCH 31.9 27.1 - 33.3 pg [facility] MCHC 34.2 32.3 - 35.7 g/dL [facility] RDW CV 12.4 11.1 - 14.9 % [facility] RDW SD 43.1 35.7 - 48.1 fL [facility] NRBC abs 0.00 0.00 - 0.01 K/cumm [facility] Blood 10/22/2023 9:39 PM CEMENT CUTTER 10/22/2023 10:17 PM CEMENT CUTTER Tia Nolan NP LAB BLOOD ORDERABLES F inal Result [facility] Department [place] [address] * (ABNORMAL) Basic metabolic panel (10/22/2023 9:39 PM CEMENT CUTTER) [facility] Sodium 134(L) 135 - 145 mmol/L [facility] Potassium, pl 4.6 3.3 - 4.9 mmol/L [facility] Chloride 99 97 - 110 mmol/L [facility] CO2 30 22 - 32 mmol/L [facility] Anion gap 5 2 - 15 mmol/L [facility] BUN 12 6 - 25 mg/dL [facility] Creatinine 1.17 0.80 - 1.30 mg/dL [facility] Glucose 121 70 - 199 mg/dL [facility] Comment: Interpretive Data Fasting glucose >/= [...] 2022. Calcium 8.8 8.5 - 10.3 mg/dL [facility] Blood 10/22/2023 9:39 PM CEMENT CUTTER 10/22/2023 10:23 PM CEMENT CUTTER us Tia Nolan BUSINESS INFORMATION MANAGER LAB BLOOD ORDERABLES F inal Result [facility] Department [place] [address] * XR Chest 1 View (10/22/2023 6:24 AM CEMENT CUTTER) Anatomical Region Laterality Modality Body, Chest N/A Computed Radiogr aphy 10/22/2023 8:41 AM CEMENT CUTTER Impressions 10/22/2023 12:03 PM CEMENT CUTTER Comparison is made to CT chest abdomen [...] Maritza Miranda M.D. Narrative 10/22/2023 12:03 PM CEMENT CUTTER EXAMINATION: 1 view chest radiograph Procedure Note [...] Resul t * eGFR (10/21/2023 10:52 PM CEMENT CUTTER) eGFR 78 >=60 mL/min/1. 73 m2 [facility] [...] reviewed 2021. Blood 10/21/2023 10:5 2 PM CEMENT CUTTER 10/21/2023 11:16 PM CEMENT CUTTER Jimenez Henao MD LAB BLOOD ORDERABLES Final Result [facility] One [facility] Department [place] [address] * (ABNORMAL) Differential, auto (10/21/2023 10:52 PM CEMENT CUTTER) Neutrophil abs 5.0 1.5 - 6.5 K/cumm [facility] Imm gran abs 0.1 0.0 - 0.1 K/cumm [facility] Lymphocyte abs 1.4 0.8 - 3.3 K/cumm [facility] Monocyte abs 1.1(H) 0.2 - 0.8 K/cumm [facility] Eosinophil abs 0.1 0.0 - 0.5 K/cumm [facility] Basophil abs 0.0 0.0 - 0.1 K/cumm [facility] Neutrophil pct 65.0 % [facility] Comment: Interpretive Data Percent cell count reference ranges are not reported, since discordance with absolute values may lead to misinterpretation of CBC data. Current Interpretive Data was last revised on 2018. Imm gran pct 1.3 % [facility] Comment: Interpretive Data Percent cell count reference ranges are not reported, since discordance with absolute values may lead to misinterpretation of CBC data. Current Interpretive Data was last revised on 2018. Lymphocyte pct 17.8 % [facility] Comment: Interpretive Data Percent cell count reference ranges are not reported, since discordance with absolute values may lead to misinterpretation of CBC data. Current Interpretive Data was last revised on 2018. Monocyte pct 13.6 % [facility] Comment: Interpretive Data Percent cell count reference ranges are not reported, since discordance with absolute values may lead to misinterpretation of CBC data. Current Interpretive Data was last revised on 2018. Eosinophil pct 1.8 % [facility] Comment: Interpretive Data Percent cell count reference ranges are not reported, since discordance with absolute values may lead to misinterpretation of CBC data. Current Interpretive Data was last revised on 2018. Basophil pct 0.5 % [facility] Comment: Interpretive Data Percent cell count reference ranges are not reported, since discordance with absolute values may lead to misinterpretation of CBC data. Current Interpretive Data was last revised on 2018. Blood 10/21/2023 10:5 2 PM CEMENT CUTTER 10/21/2023 11:17 PM CEMENT CUTTER us Jimenez Henao MD LAB BLOOD ORDERABLES Final Result [facility] Department [place] [address] * (ABNORMAL) CBC with auto differential (10/21/2023 10:52 PM CEMENT CUTTER) WBC 7.7 3.8 - 9.9 K/cumm [facility] Hgb 10.4(L) 13.0 - 17.5 g/dL [facility] Hct 30.1(L) 38.9 - 50.3 % [facility] Plt 350 150 - 400 K/cumm [facility] MPV 10.8 9.1 - 12.3 fL [facility] RBC 3.31(L) 4.30 - 5.80 M/cumm [facility] MCV 90.9 81.3 - 96.4 fL [facility] MCH 31.4 27.1 - 33.3 pg [facility] MCHC 34.6 32.3 - 35.7 g/dL [facility] RDW CV 12.6 11.1 - 14.9 % [facility] RDW SD 41.8 35.7 - 48.1 fL [facility] NRBC abs 0.00 0.00 - 0.01 K/cumm [facility] Blood 10/21/2023 10:5 2 PM CEMENT CUTTER 10/21/2023 11:17 PM CEMENT CUTTER Tia Nolan BUSINESS INFORMATION MANAGER LAB BLOOD ORDERABLES F inal Result Performing Organization Address City/[facility]/ZIP Co de Phone Number [facility] Department [place] [address] * Basic metabolic panel (10/21/2023 10:52 PM CEMENT CUTTER) [facility] Sodium 136 135 - 145 mmol/L [facility] Potassium, pl 4.5 3.3 - 4.9 mmol/L [facility] Chloride 99 97 - 110 mmol/L [facility] CO2 27 22 - 32 mmol/L [facility] Anion gap 10 2 - 15 mmol/L [facility] BUN 12 6 - 25 mg/dL [facility] Creatinine 1.02 0.80 - 1.30 mg/dL [facility] Glucose 117 70 - 199 mg/dL [facility] Comment: Interpretive Data Fasting glucose >/= [...] 2022. Calcium 8.7 8.5 - 10.3 mg/dL [facility] Blood 10/21/2023 10:5 2 PM CEMENT CUTTER 10/21/2023 11:16 PM CEMENT CUTTER Tia Nolan NP LAB BLOOD ORDERABLES F inal Result Performing Organization Address [facility]/ZIP Co de Phone Number [facility] Department [place] [address] * eGFR (10/20/2023 9:38 PM CEMENT CUTTER) eGFR 80 >=60 mL/min/1. 73 m2 [facility] [...] last reviewed 2021. Blood 10/20/2023 9:38 PM CEMENT CUTTER 10/20/2023 10:25 PM CEMENT CUTTER us Jimenez Henao MD LAB BLOOD ORDERABLES Final Result [facility] Department [place] [address] * (ABNORMAL) Differential, auto (10/20/2023 9:38 PM CEMENT CUTTER) Neutrophil abs 5.9 1.5 - 6.5 K/cumm [facility] Imm gran abs 0.2(H) 0.0 - 0.1 K/cumm [facility] Lymphocyte abs 1.1 0.8 - 3.3 K/cumm [facility] Monocyte abs 1.1(H) 0.2 - 0.8 K/cumm [facility] Eosinophil abs 0.2 0.0 - 0.5 K/cumm [facility] Basophil abs 0.1 0.0 - 0.1 K/cumm [facility] Neutrophil pct 69.2 % [facility] Comment: Interpretive Data Percent cell count reference ranges are not reported, since discordance with absolute values may lead to misinterpretation of CBC data. Current Interpretive Data was last revised on 2018. Imm gran pct 2.3 % [facility] Comment: Interpretive Data Percent cell count reference ranges are not reported, since discordance with absolute values may lead to misinterpretation of CBC data. Current Interpretive Data was last revised on 2018. Lymphocyte pct 13.2 % [facility] Comment: Interpretive Data Percent cell count reference ranges are not reported, since discordance with absolute values may lead to misinterpretation of CBC data. Current Interpretive Data was last revised on 2018. Monocyte pct 12.9 % [facility] Comment: Interpretive Data Percent cell count reference ranges are not reported, since discordance with absolute values may lead to misinterpretation of CBC data. Current Interpretive Data was last revised on 2018. Eosinophil pct 1.8 % [facility] Comment: Interpretive Data Percent cell count reference ranges are not reported, since discordance with absolute values may lead to misinterpretation of CBC data. Current Interpretive Data was last revised on 2018. Basophil pct 0.6 % [facility] Comment: Interpretive Data Percent cell count reference ranges are not reported, since discordance with absolute values may lead to misinterpretation of CBC data. Current Interpretive Data was last revised on 2018. Blood 10/20/2023 9:38 PM CEMENT CUTTER 10/20/2023 10:25 PM CEMENT CUTTER us Jimenez Henao MD LAB BLOOD ORDERABLES Final Result [facility] Department [place] [address] * (ABNORMAL) CBC with auto differential (10/20/2023 9:38 PM CEMENT CUTTER) [facility] WBC 8.5 3.8 - 9.9 K/cumm [facility] Hgb 11.0(L) 13.0 - 17.5 g/dL [facility] Comment: Interpretive Data A reference range for this assay has not been established for patients with an unknown legal sex. Please refer to the laboratory test catalog for established sex-specific reference intervals. Current interpretive data was last revised on 2023. Hct 32.7(L) 38.9 - 50.3 % [facility] Comment: Interpretive Data A reference range for this assay has not been established for patients with an unknown legal sex. Please refer to the laboratory test catalog for established sex-specific reference intervals. Current interpretive data was last revised on 2023. Plt 321 150 - 400 K/cumm [facility] MPV 11.0 9.1 - 12.3 fL [facility] RBC 3.50(L) 4.30 - 5.80 M/cumm [facility] Comment: Interpretive Data A reference range for this assay has not been established for patients with an unknown legal sex. Please refer to the laboratory test catalog for established sex-specific reference intervals. Current interpretive data was last revised on 2023. MCV 93.4 81.3 - 96.4 fL [facility] MCH 31.4 27.1 - 33.3 pg [facility] MCHC 33.6 32.3 - 35.7 g/dL [facility] RDW CV 12.5 11.1 - 14.9 % [facility] RDW SD 43.2 35.7 - 48.1 fL [facility] NRBC abs 0.00 0.00 - 0.01 K/cumm [facility] Blood 10/20/2023 9:38 PM CEMENT CUTTER 10/20/2023 10:25 PM CEMENT CUTTER us Tia Nolan BUSINESS INFORMATION MANAGER LAB BLOOD ORDERABLES F inal Result [facility] Department [place] [address] * (ABNORMAL) Basic metabolic panel (10/20/2023 9:38 PM CEMENT CUTTER) Pathologist [facility] Sodium 134(L) 135 - 145 mmol/L [facility] Potassium, pl 4.5 3.3 - 4.9 mmol/L [facility] Chloride 97 97 - 110 mmol/L [facility] CO2 27 22 - 32 mmol/L [facility] Anion gap 10 2 - 15 mmol/L [facility] BUN 12 6 - 25 mg/dL [facility] Creatinine 1.00 0.80 - 1.30 mg/dL [facility] Glucose 127 70 - 199 mg/dL [facility] Comment: Interpretive Data Fasting glucose >/= [...] 2022. Calcium 8.9 8.5 - 10.3 mg/dL [facility] Blood 10/20/2023 9:38 PM CEMENT CUTTER 10/20/2023 10:25 PM CEMENT CUTTER us Tia Nolan BUSINESS INFORMATION MANAGER LAB BLOOD ORDERABLES F inal Result [facility] Department [place] [address] * eGFR (10/19/2023 9:11 PM CEMENT CUTTER) Pathologist [facility] eGFR 81 >=60 mL/min/1. 73 m2 [facility] Comment: Interpretive Data Reference Interval Normal ?>/= [...] last reviewed 2021. Blood 10/19/2023 9:11 PM CEMENT CUTTER 10/19/2023 11:30 PM CEMENT CUTTER us Jimenez Henao MD LAB BLOOD ORDERABLES Final Result [facility] Department [place] [address] * (ABNORMAL) Differential, auto (10/19/2023 9:11 PM CEMENT CUTTER) Neutrophil abs 8.2(H) 1.5 - 6.5 K/cumm [facility] Imm gran abs 0.2(H) 0.0 - 0.1 K/cumm [facility] Lymphocyte abs 0.9 0.8 - 3.3 K/cumm [facility] Monocyte abs 0.8 0.2 - 0.8 K/cumm [facility] Eosinophil abs 0.2 0.0 - 0.5 K/cumm [facility] Basophil abs 0.1 0.0 - 0.1 K/cumm [facility] Neutrophil pct 79.6 % [facility] Comment: Interpretive Data Percent cell count reference ranges are not reported, since discordance with absolute values may lead to misinterpretation of CBC data. Current Interpretive Data was last revised on 2018. Imm gran pct 2.0 % [facility] Comment: Interpretive Data Percent cell count reference ranges are not reported, since discordance with absolute values may lead to misinterpretation of CBC data. Current Interpretive Data was last revised on 2018. Lymphocyte pct 8.3 % [facility] Comment: Interpretive Data Percent cell count reference ranges are not reported, since discordance with absolute values may lead to misinterpretation of CBC data. Current Interpretive Data was last revised on 2018. Monocyte pct 8.0 % [facility] Comment: Interpretive Data Percent cell count reference ranges are not reported, since discordance with absolute values may lead to misinterpretation of CBC data. Current Interpretive Data was last revised on 2018. Eosinophil pct 1.6 % [facility] Comment: Interpretive Data Percent cell count reference ranges are not reported, since discordance with absolute values may lead to misinterpretation of CBC data. Current Interpretive Data was last revised on 2018. Basophil pct 0.5 % [facility] Comment: Interpretive Data Percent cell count reference ranges are not reported, since discordance with absolute values may lead to misinterpretation of CBC data. Current Interpretive Data was last revised on 2018. Blood 10/19/2023 9:11 PM CEMENT CUTTER 10/19/2023 11:31 PM CEMENT CUTTER us Jimenez Henao MD LAB BLOOD ORDERABLES Final Result [facility] Department of Laboratories [place], [place] [id number] * (ABNORMAL) CBC with auto differential (10/19/2023 9:11 PM CEMENT CUTTER) WBC 10.3(H) 3.8 - 9.9 K/cumm [facility] Hgb 11.0(L) 13.0 - 17.5 g/dL [facility] Comment: Interpretive Data A reference range for this assay has not been established for patients with an unknown legal sex. Please refer to the laboratory test catalog for established sex-specific reference intervals. Current interpretive data was last revised on 2023. Hct 31.6(L) 38.9 - 50.3 % [facility] Comment: Interpretive Data A reference range for this assay has not been established for patients with an unknown legal sex. Please refer to the laboratory test catalog for established sex-specific reference intervals. Current interpretive data was last revised on 2023. Plt 281 150 - 400 K/cumm [facility] MPV 11.5 9.1 - 12.3 fL [facility] RBC 3.46(L) 4.30 - 5.80 M/cumm [facility] Comment: Interpretive Data A reference range for this assay has not been established for patients with an unknown legal sex. Please refer to the laboratory test catalog for established sex-specific reference intervals. Current interpretive data was last revised on 2023. MCV 91.3 81.3 - 96.4 fL [facility] MCH 31.8 27.1 - 33.3 pg [facility] MCHC 34.8 32.3 - 35.7 g/dL [facility] RDW CV 12.7 11.1 - 14.9 % [facility] RDW SD 42.2 35.7 - 48.1 fL [facility] NRBC abs 0.00 0.00 - 0.01 K/cumm [facility] Blood 10/19/2023 9:11 PM CEMENT CUTTER 10/19/2023 11:31 PM CEMENT CUTTER us Tia Nolan NP LAB BLOOD ORDERABLES F inal Result [facility] Department [place] [address] * Basic metabolic panel (10/19/2023 9:11 PM CEMENT CUTTER) [facility] Sodium 135 135 - 145 mmol/L [facility] Potassium, pl 4.3 3.3 - 4.9 mmol/L [facility] Chloride 99 97 - 110 mmol/L [facility] CO2 27 22 - 32 mmol/L [facility] Anion gap 9 2 - 15 mmol/L [facility] BUN 17 6 - 25 mg/dL [facility] Creatinine 0.99 0.80 - 1.30 mg/dL [facility] Glucose 185 70 - 199 mg/dL [facility] Comment: Interpretive Data Fasting glucose >/= [...] 2022. Calcium 8.6 8.5 - 10.3 mg/dL [facility] Blood 10/19/2023 9:11 PM CEMENT CUTTER 10/19/2023 11:30 PM CEMENT CUTTER us Tia Nolan BUSINESS INFORMATION MANAGER LAB BLOOD ORDERABLES F inal Result [facility] Department [place] [address] * eGFR (10/18/2023 9:29 PM CEMENT CUTTER) eGFR 87 >=60 mL/min/1. 73 m2 [facility] Comment: Interpretive Data Reference Interval Normal ?>/= [...] last reviewed 2021. Blood 10/18/2023 9:29 PM CEMENT CUTTER 10/18/2023 10:27 PM CEMENT CUTTER Jimenez Henao MD LAB BLOOD ORDERABLES Final Result [facility] Department [place] [address] * (ABNORMAL) Differential, auto (10/18/2023 9:29 PM CEMENT CUTTER) Neutrophil abs 13.6(H) 1.5 - 6.5 K/cumm [facility] Imm gran abs 0.2(H) 0.0 - 0.1 K/cumm [facility] Lymphocyte abs 1.4 0.8 - 3.3 K/cumm [facility] Monocyte abs 1.0(H) 0.2 - 0.8 K/cumm [facility] Eosinophil abs 0.2 0.0 - 0.5 K/cumm [facility] Basophil abs 0.0 0.0 - 0.1 K/cumm [facility] Neutrophil pct 82.8 % [facility] Comment: Interpretive Data Percent cell count reference ranges are not reported, since discordance with absolute values may lead to misinterpretation of CBC data. Current Interpretive Data was last revised on 2018. Imm gran pct 1.5 % [facility] Comment: Interpretive Data Percent cell count reference ranges are not reported, since discordance with absolute values may lead to misinterpretation of CBC data. Current Interpretive Data was last revised on 2018. Lymphocyte pct 8.4 % [facility] Comment: Interpretive Data Percent cell count reference ranges are not reported, since discordance with absolute values may lead to misinterpretation of CBC data. Current Interpretive Data was last revised on 2018. Monocyte pct 6.1 % [facility] Comment: Interpretive Data Percent cell count reference ranges are not reported, since discordance with absolute values may lead to misinterpretation of CBC data. Current Interpretive Data was last revised on 2018. Eosinophil pct 1.0 % [facility] Comment: Interpretive Data Percent cell count reference ranges are not reported, since discordance with absolute values may lead to misinterpretation of CBC data. Current Interpretive Data was last revised on 2018. Basophil pct 0.2 % [facility] Comment: Interpretive Data Percent cell count reference ranges are not reported, since discordance with absolute values may lead to misinterpretation of CBC data. Current Interpretive Data was last revised on 2018. Blood 10/18/2023 9:29 PM CEMENT CUTTER 10/18/2023 10:27 PM CEMENT CUTTER Jimenez Henao MD LAB BLOOD ORDERABLES Final Result [facility] Department [place] [address] * (ABNORMAL) CBC with auto differential (10/18/2023 9:29 PM CEMENT CUTTER) WBC 16.4(H) 3.8 - 9.9 K/cumm [facility] Hgb 11.3(L) 13.0 - 17.5 g/dL [facility] Comment: Interpretive Data A reference range for this assay has not been established for patients with an unknown legal sex. Please refer to the laboratory test catalog for established sex-specific reference intervals. Current interpretive data was last revised on 2023. Hct 32.8(L) 38.9 - 50.3 % [facility] Comment: Interpretive Data A reference range for this assay has not been established for patients with an unknown legal sex. Please refer to the laboratory test catalog for established sex-specific reference intervals. Current interpretive data was last revised on 2023. Plt 286 150 - 400 K/cumm [facility] MPV 11.3 9.1 - 12.3 fL [facility] RBC 3.53(L) 4.30 - 5.80 M/cumm [facility] Comment: Interpretive Data A reference range for this assay has not been established for patients with an unknown legal sex. Please refer to the laboratory test catalog for established sex-specific reference intervals. Current interpretive data was last revised on 2023. MCV 92.9 81.3 - 96.4 fL [facility] MCH 32.0 27.1 - 33.3 pg [facility] MCHC 34.5 32.3 - 35.7 g/dL [facility] RDW CV 12.6 11.1 - 14.9 % [facility] RDW SD 43.3 35.7 - 48.1 fL [facility] NRBC abs 0.00 0.00 - 0.01 K/cumm [facility] Blood 10/18/2023 9:29 PM CEMENT CUTTER 10/18/2023 10:27 PM CEMENT CUTTER us Tia Nolan BUSINESS INFORMATION MANAGER LAB BLOOD ORDERABLES F inal Result [facility] Department [place] [address] * (ABNORMAL) Basic metabolic panel (10/18/2023 9:29 PM CEMENT CUTTER) Sodium 132(L) 135 - 145 mmol/L [facility] Potassium, pl 4.0 3.3 - 4.9 mmol/L [facility] Chloride 97 97 - 110 mmol/L [facility] CO2 27 22 - 32 mmol/L [facility] Anion gap 8 2 - 15 mmol/L [facility] BUN 16 6 - 25 mg/dL [facility] Creatinine 0.93 0.80 - 1.30 mg/dL [facility] Glucose 151 70 - 199 mg/dL [facility] Comment: Interpretive Data Fasting glucose >/= [...] 2022. Calcium 8.2(L) 8.5 - 10.3 mg/dL [facility] Blood 10/18/2023 9:29 PM CEMENT CUTTER 10/18/2023 10:27 PM CEMENT CUTTER Tia Nolan NP LAB BLOOD ORDERABLES F inal Result [facility] Department [place] [address] * Dexa Axial Skeleton Bone Density 1 or 2 Site (10/18/2023 12:45 PM CEMENT CUTTER) Anatomical Region Laterality Modality Body N/A Digital Radiogra phy 10/18/2023 1:29 PM CEMENT CUTTER Impressions 10/18/2023 2:27 PM CEMENT CUTTER ?? 1. The bone mineral density of [...] Bella MD, Ph.D Narrative 10/18/2023 2:27 PM CEMENT CUTTER [facility] DENSITOMETRY OF THE SPINE AND HIP [...] Fluoroscopy < 1 Hour (10/18/2023 11:27 AM CEMENT CUTTER) Narrative [facility] - 10/18/2023 11:27 AM CEMENT CUTTER The images from this study are not interpreted by Radiology. ??Please refer to the physician's procedure / OR operative note. us Gabriel Bennett MD IMG FLUOROSCOPY PROCEDURES Fide l Result RAD_[facility]ACS[facility] * eGFR (10/17/2023 10:52 PM CEMENT CUTTER) eGFR 83 >=60 mL/min/1. 73 m2 LAURA [...] reviewed 2021. Blood 10/17/2023 10:5 2 PM CEMENT CUTTER 10/17/2023 11:04 PM CEMENT CUTTER us Jimenez Henao MD LAB BLOOD ORDERABLES Final Result [facility] One [facility] Department [place] [address] * (ABNORMAL) Differential, auto (10/17/2023 10:52 PM CEMENT CUTTER) Neutrophil abs 9.0(H) 1.5 - 6.5 K/cumm [facility] Imm gran abs 0.2(H) 0.0 - 0.1 K/cumm [facility] Lymphocyte abs 1.4 0.8 - 3.3 K/cumm [facility] Monocyte abs 0.8 0.2 - 0.8 K/cumm [facility] Eosinophil abs 0.2 0.0 - 0.5 K/cumm [facility] Basophil abs 0.1 0.0 - 0.1 K/cumm [facility] Neutrophil pct 77.7 % [facility] Comment: Interpretive Data Percent cell count reference ranges are not reported, since discordance with absolute values may lead to misinterpretation of CBC data. Current Interpretive Data was last revised on 2018. Imm gran pct 1.7 % [facility] Comment: Interpretive Data Percent cell count reference ranges are not reported, since discordance with absolute values may lead to misinterpretation of CBC data. Current Interpretive Data was last revised on 2018. Lymphocyte pct 11.7 % [facility] Comment: Interpretive Data Percent cell count reference ranges are not reported, since discordance with absolute values may lead to misinterpretation of CBC data. Current Interpretive Data was last revised on 2018. Monocyte pct 6.8 % [facility] Comment: Interpretive Data Percent cell count reference ranges are not reported, since discordance with absolute values may lead to misinterpretation of CBC data. Current Interpretive Data was last revised on 2018. Eosinophil pct 1.7 % [facility] Comment: Interpretive Data Percent cell count reference ranges are not reported, since discordance with absolute values may lead to misinterpretation of CBC data. Current Interpretive Data was last revised on 2018. Basophil pct 0.4 % [facility] Comment: Interpretive Data Percent cell count reference ranges are not reported, since discordance with absolute values may lead to misinterpretation of CBC data. Current Interpretive Data was last revised on 2018. Blood 10/17/2023 10:5 2 PM CEMENT CUTTER 10/17/2023 11:04 PM CEMENT CUTTER us Jimenez Henao MD LAB BLOOD ORDERABLES Final Result Performing Organization Address [facility] de Phone Number [facility] [place] [address] * aPTT (10/17/2023 10:52 PM CEMENT CUTTER) aPTT 32 28 - 38 sec [facility] Comment: Interpretive Data Heparin therapeutic range: 66.0 - 100.0 seconds. Range based on correlation with therapeutic heparin activity range of 0.3 - 0.7 Units/mL. Current interpretive data was last revised on 2023. Blood 10/17/2023 10:5 2 PM CEMENT CUTTER 10/17/2023 11:07 PM CEMENT CUTTER us Jimenez Henao MD LAB BLOOD ORDERABLES Final Result Performing Organization Address [facility] [place] [address] * Protime-INR (10/17/2023 10:52 PM CEMENT CUTTER) PT 12.6 10.3 - 13.7 sec [facility] INR 1.11 0.90 - 1.20 [facility] Comment: Interpretive data Oral anticoagulant therapeutic ranges: Venous thromboembolism prophylaxis or treatment: 2.0-3.0 CARDIOLOGY Standard range: 2.0-3.0 High-intensity range: 2.5-3.5 Refer to indication-specific guidelines for appropriate target ranges for prosthetic heart valve replacement. Current interpretive data was last revised on 2019. Blood 10/17/2023 10:5 2 PM CEMENT CUTTER 10/17/2023 11:07 PM CEMENT CUTTER Jimenez Henao MD LAB BLOOD ORDERABLES Final Result [facility] One [facility] Department [place] [address] * (ABNORMAL) CBC with auto differential (10/17/2023 10:52 PM CEMENT CUTTER) [facility] WBC 11.6(H) 3.8 - 9.9 K/cumm [facility] Hgb 11.7(L) 13.0 - 17.5 g/dL [facility] Comment: Interpretive Data A reference range for this assay has not been established for patients with an unknown legal sex. Please refer to the laboratory test catalog for established sex-specific reference intervals. Current interpretive data was last revised on 2023. Hct 33.3(L) 38.9 - 50.3 % [facility] Comment: Interpretive Data A reference range for this assay has not been established for patients with an unknown legal sex. Please refer to the laboratory test catalog for established sex-specific reference intervals. Current interpretive data was last revised on 2023. Plt 256 150 - 400 K/cumm [facility] MPV 11.0 9.1 - 12.3 fL [facility] RBC 3.68(L) 4.30 - 5.80 M/cumm [facility] Comment: Interpretive Data A reference range for this assay has not been established for patients with an unknown legal sex. Please refer to the laboratory test catalog for established sex-specific reference intervals. Current interpretive data was last revised on 2023. MCV 90.5 81.3 - 96.4 fL [facility] MCH 31.8 27.1 - 33.3 pg [facility] MCHC 35.1 32.3 - 35.7 g/dL [facility] RDW CV 12.5 11.1 - 14.9 % [facility] RDW SD 41.4 35.7 - 48.1 fL [facility] NRBC abs 0.00 0.00 - 0.01 K/cumm [facility] Blood 10/17/2023 10:5 2 PM CEMENT CUTTER 10/17/2023 11:04 PM CEMENT CUTTER Tia Nolan BUSINESS INFORMATION MANAGER LAB BLOOD ORDERABLES F inal Result Performing Organization Address City/[facility]/ZIP Co de Phone Number [facility] Department [place] [address] * (ABNORMAL) Basic metabolic panel (10/17/2023 10:52 PM CEMENT CUTTER) [facility] Sodium 133(L) 135 - 145 mmol/L [facility] Potassium, pl 3.5 3.3 - 4.9 mmol/L [facility] Chloride 100 97 - 110 mmol/L [facility] CO2 27 22 - 32 mmol/L [facility] Anion gap 6 2 - 15 mmol/L [facility] BUN 12 6 - 25 mg/dL [facility] Creatinine 0.97 0.80 - 1.30 mg/dL [facility] Glucose 186 70 - 199 mg/dL [facility] Comment: Interpretive Data Fasting glucose >/= [...] 2022. Calcium 8.4(L) 8.5 - 10.3 mg/dL [facility] Blood 10/17/2023 10:5 2 PM CEMENT CUTTER 10/17/2023 11:04 PM CEMENT CUTTER Tia Nolan NP LAB BLOOD ORDERABLES F inal Result Performing Organization Address [facility]/ZIP Co de Phone Number [facility] Department [place] [address] * CT Urogram WO 3D (10/16/2023 12:36 PM CEMENT CUTTER) Anatomical Region Laterality Modality Body N/A Computed Tomogra phy 10/16/2023 1:29 PM CEMENT CUTTER Impressions 10/16/2023 1:59 PM CEMENT CUTTER 1. ??Postprocedural changes of percutaneous nephrostomy tube [...] Eric Irene M.D. Narrative 10/16/2023 1:59 PM CEMENT CUTTER EXAMINATION: CT UROGRAPHY WITH AND WITHOUT CONTRAST [...] IR Percutaneous Nephrostomy Left (10/14/2023 1:38 PM CEMENT CUTTER) Anatomical Region Laterality Modality Body Left X-Ray Angiograph y 10/14/2023 3:34 PM CEMENT CUTTER Impressions 10/14/2023 7:38 PM CEMENT CUTTER Successful left percutaneous nephrostomy. Impacted stone in [...] Kendrick Hughes M.D. Narrative 10/14/2023 7:38 PM CEMENT CUTTER EXAMINATION: IR PERCUTANEOUS NEPHROSTOMY LEFT HISTORY/INDICATION: ??73-year-old [...] was obtained. Prior to beginning the procedure, [place] Protocol was performed to confirm the patient's [...] was dilated before placing a 10 Fr Sassafras catheter. ??The retaining loop was formed and [...] was obtained. Prior to beginning the procedure, [place] Protocol was performed to confirm the patient's [...] was dilated before placing a 10 Fr Sassafras catheter. The retaining loop was formed and [...] (ABNORMAL) Urinalysis, microscopic only (10/14/2023 1:35 PM CEMENT CUTTER) WBC, ur 0-5 0 - 5 /HPF [facility] RBC, ur >50(A) 0 - 2 /HPF [facility] Epithelial cells, squamous, ur 1-5 0 - 5 /HPF [facility] Bacteria, ur Trace(A) [facility] Mucous, ur Present(A) [facility] Urine 10/14/2023 1:35 PM CEMENT CUTTER 10/14/2023 3:26 PM CEMENT CUTTER Marquise Lim MD LAB URINE ORDERABLES Final Result [facility] Department [place] [address] * Urine culture Urine, kidney aspirate Left (10/14/2023 1:35 PM CEMENT CUTTER) Report Final Report: No growth [facility] Urine, kidney aspirate (Left) 10/14/2023 1:35 PM CEMENT CUTTER 10/14/2023 3:52 PM CEMENT CUTTER Narrative [facility] - 10/16/2023 4:49 PM CEMENT CUTTER Testing performed by [facility] ([phone]) Marquise Lim MD LAB MICROBIOLOGY - GENERAL ORDERABLES Final Result Performing Organization Address City/[facility]/ZIP Co de Phone Number [facility] Department [place] [address] * (ABNORMAL) Urinalysis reflex to microscopic and culture Urine (10/14/2023 1:35 PM CEMENT CUTTER) Color, ur Red(A) Yellow [facility] Clarity, ur Cloudy(A) Clear [facility] Specific gravity, ur 1.015 1.003 - 1.030 [facility] pH, urine 6.0 [facility] Comment: Interpretive Data ? Urine pH is affected by diet, medications, systemic acid-base disturbances, and renal tubular function. ??pH may affect urinary stone formation. ??For example, urine pH below 6.0 may help reduce the tendency for calcium phosphate stones and pH greater than 6.0 may reduce the tendency for uric acid stone formation. Source: [facility] KBLE Current Interpretive Data was last revised on 2017 Protein, ur ql 1+(A) Negative [facility] Glucose, ur ql Negative Negative [facility] Ketones, ur Negative Negative [facility] Bilirubin, ur 1+(A) Negative [facility] Blood, ur 4+(A) Negative [facility] Urobilinogen, ur 0.2 <2.0 mg/dL [facility] Nitrite, ur Negative Negative [facility] Leukocyte esterase, ur 2+(A) Negative [facility] UA reflex comment Reflex to microscopic UA will be performed. [facility] Urine 10/14/2023 1:35 PM CEMENT CUTTER 10/14/2023 3:26 PM CEMENT CUTTER Marquise Lim MD LAB MICROBIOLOGY - GENERAL ORDERABLES Final Result [facility] Department [place] [address] * US Kidney Complete (10/14/2023 7:15 AM CEMENT CUTTER) Anatomical Region Laterality Modality Kidney N/A Ultrasound 10/14/2023 6:15 PM CEMENT CUTTER Impressions 10/14/2023 6:15 PM CEMENT CUTTER 1. ??No hydronephrosis. ??Given patient had obstructive [...] Robert Yeboah M.D. Narrative 10/14/2023 6:15 PM CEMENT CUTTER EXAMINATION: COMPLETE RENAL SONOGRAM HISTORY: ??Obstructive left [...] Res ult * eGFR (10/14/2023 6:30 AM CEMENT CUTTER) eGFR 64 >=60 mL/min/1. 73 m2 [facility] [...] last reviewed 2021. Blood 10/14/2023 6:30 AM CEMENT CUTTER 10/14/2023 7:44 AM CEMENT CUTTER Marquise Lim MD LAB BLOOD ORDERABLES Final Result [facility] One [facility] Department [place] [address] * (ABNORMAL) Differential, auto (10/14/2023 6:30 AM CEMENT CUTTER) Neutrophil abs 7.4(H) 1.5 - 6.5 K/cumm [facility] Imm gran abs 0.1 0.0 - 0.1 K/cumm [facility] Lymphocyte abs 0.6(L) 0.8 - 3.3 K/cumm [facility] Monocyte abs 1.3(H) 0.2 - 0.8 K/cumm [facility] Eosinophil abs 0.1 0.0 - 0.5 K/cumm [facility] Basophil abs 0.0 0.0 - 0.1 K/cumm [facility] Neutrophil pct 79.0 % [facility] Comment: Interpretive Data Percent cell count reference ranges are not reported, since discordance with absolute values may lead to misinterpretation of CBC data. Current Interpretive Data was last revised on 2018. Imm gran pct 0.6 % [facility] Comment: Interpretive Data Percent cell count reference ranges are not reported, since discordance with absolute values may lead to misinterpretation of CBC data. Current Interpretive Data was last revised on 2018. Lymphocyte pct 6.3 % [facility] Comment: Interpretive Data Percent cell count reference ranges are not reported, since discordance with absolute values may lead to misinterpretation of CBC data. Current Interpretive Data was last revised on 2018. Monocyte pct 13.3 % [facility] Comment: Interpretive Data Percent cell count reference ranges are not reported, since discordance with absolute values may lead to misinterpretation of CBC data. Current Interpretive Data was last revised on 2018. Eosinophil pct 0.5 % [facility] Comment: Interpretive Data Percent cell count reference ranges are not reported, since discordance with absolute values may lead to misinterpretation of CBC data. Current Interpretive Data was last revised on 2018. Basophil pct 0.3 % [facility] Comment: Interpretive Data Percent cell count reference ranges are not reported, since discordance with absolute values may lead to misinterpretation of CBC data. Current Interpretive Data was last revised on 2018. Blood 10/14/2023 6:30 AM CEMENT CUTTER 10/14/2023 7:20 AM CEMENT CUTTER Marquise Lim MD LAB BLOOD ORDERABLES Final Result [facility] Department [place] [address] * (ABNORMAL) Comprehensive metabolic panel (10/14/2023 6:30 AM CEMENT CUTTER) Sodium 136 135 - 145 mmol/L [facility] Potassium, pl 3.4 3.3 - 4.9 mmol/L [facility] Chloride 101 97 - 110 mmol/L [facility] CO2 24 22 - 32 mmol/L [facility] Anion gap 11 2 - 15 mmol/L [facility] BUN 24 6 - 25 mg/dL [facility] Creatinine 1.20 0.80 - 1.30 mg/dL [facility] Glucose 153 70 - 199 mg/dL [facility] Comment: Interpretive Data Fasting glucose >/= [...] 2022. Calcium 8.5 8.5 - 10.3 mg/dL [facility] Bilirubin, total 0.5 0.1 - 1.2 mg/dL [facility] Protein, pl 5.8(L) 6.5 - 8.5 g/dL [facility] Albumin 2.7(L) 3.5 - 5.0 g/dL [facility] Alk phos 108 40 - 130 Units/L [facility] ALT 67(H) 7 - 55 Units/L [facility] AST 49 10 - 50 Units/L [facility] Blood 10/14/2023 6:30 AM CEMENT CUTTER 10/14/2023 7:20 AM CEMENT CUTTER Marquise Lim MD LAB BLOOD ORDERABLES Final Result [facility] One [facility] Department [place] [address] * (ABNORMAL) CBC with auto differential (10/14/2023 6:30 AM CEMENT CUTTER) [facility] WBC 9.4 3.8 - 9.9 K/cumm [facility] Hgb 11.4(L) 13.0 - 17.5 g/dL [facility] Comment: Interpretive Data A reference range for this assay has not been established for patients with an unknown legal sex. Please refer to the laboratory test catalog for established sex-specific reference intervals. Current interpretive data was last revised on 2023. Hct 32.2(L) 38.9 - 50.3 % [facility] Comment: Interpretive Data A reference range for this assay has not been established for patients with an unknown legal sex. Please refer to the laboratory test catalog for established sex-specific reference intervals. Current interpretive data was last revised on 2023. Plt 134(L) 150 - 400 K/cumm [facility] MPV 12.0 9.1 - 12.3 fL [facility] RBC 3.53(L) 4.30 - 5.80 M/cumm [facility] Comment: Interpretive Data A reference range for this assay has not been established for patients with an unknown legal sex. Please refer to the laboratory test catalog for established sex-specific reference intervals. Current interpretive data was last revised on 2023. MCV 91.2 81.3 - 96.4 fL [facility] MCH 32.3 27.1 - 33.3 pg [facility] MCHC 35.4 32.3 - 35.7 g/dL [facility] RDW CV 12.8 11.1 - 14.9 % [facility] RDW SD 42.2 35.7 - 48.1 fL [facility] NRBC abs 0.00 0.00 - 0.01 K/cumm [facility] Blood 10/14/2023 6:30 AM CEMENT CUTTER 10/14/2023 7:20 AM CEMENT CUTTER Marquise Lim MD LAB BLOOD ORDERABLES Final Result Performing Organization Address [facility] Co de Phone Number LAURA Seay [facility] Department [place] [address] * Blood culture Blood (10/13/2023 10:59 PM CEMENT CUTTER) Report Final Report: No growth [facility] Blood 10/13/2023 10:5 9 PM CEMENT CUTTER 10/14/2023 12:27 AM CEMENT CUTTER Narrative [facility] - 10/18/2023 7:00 AM CEMENT CUTTER Collection->Peripheral 1. ?Blood cultures are incubated for [...] organism identification may be performed using the Frilpigene Gram-Positive Blood Culture Assay. This assay detects microbial DNA in positive blood culture broth via hybridization of target DNA to capture oligonucleotides on a microarray. This assay has been cleared by the [place] Food and Drug Administration and its performance characteristics have been verified by the [facility]. 5. ?For questions about this culture, contact the Microbiology Laboratory at [phone]. Interpretive data was last revised on 2020. Marquise Lim MD LAB MICROBIOLOGY - GENERAL ORDERABLES Final Result Performing Organization Address [facility] Co de Phone Number [facility] Department [place] [address] * Blood culture Blood (10/13/2023 11:01 AM CEMENT CUTTER) Report Final Report: No growth [facility] Blood 10/13/2023 11:0 1 AM CEMENT CUTTER 10/13/2023 12:16 PM CEMENT CUTTER Narrative [facility]URA CORRAL - 10/18/2023 8:10 AM CEMENT CUTTER 1. ?Blood cultures are incubated for 4 [...] organism identification may be performed using the Frilpigene Gram-Positive Blood Culture Assay. This assay detects microbial DNA in positive blood culture broth via hybridization of target DNA to capture oligonucleotides on a microarray. This assay has been cleared by the [place] Food and Drug Administration and its performance characteristics have been verified by the [facility]. 5. ?For questions about this culture, contact the Microbiology Laboratory at [phone]. Interpretive data was last revised on 2020. Marquise Lim MD LAB MICROBIOLOGY - GENERAL ORDERABLES Final Result [facility] Department [place] [address] * [place] Fluoroscopy < 1 Hour (10/13/2023 9:48 AM CEMENT CUTTER) Anatomical Region Laterality Modality Body N/A X-Ray Angiograph y 10/13/2023 7:06 PM CEMENT CUTTER Impressions 10/14/2023 1:30 PM CEMENT CUTTER Unsuccessful attempt at left nephrostomy placement in this patient with a nondilated system. Dictated by: Ana Alfaro M.D. The radiology attending physician has personally reviewed this study, and had reviewed and/or edited this written report and agrees with it. Electronically signed by: Rg Mar M.D. Narrative 10/14/2023 1:30 PM CEMENT CUTTER EXAMINATION: FL FLUOROSCOPY < 1 HOUR HISTORY/INDICATION: [...] was obtained. Prior to beginning the procedure, [place] Protocol was performed to confirm the patient's [...] was obtained. Prior to beginning the procedure, [place] Protocol was performed to confirm the patient's [...] inal Result * eGFR (10/13/2023 6:50 AM CEMENT CUTTER) [facility] eGFR >90 >=60 mL/min/1. 73 m2 [facility] Comment: Interpretive Data Reference Interval Normal ?>/= [...] last reviewed 2021. Blood 10/13/2023 6:50 AM CEMENT CUTTER 10/13/2023 7:55 AM CEMENT CUTTER us Severo Merlos MD LAB BLOOD ORDERABLES Final R esult [facility] One [facility] Department [place] [address] * (ABNORMAL) Differential, auto (10/13/2023 6:50 AM CEMENT CUTTER) Neutrophil abs 5.8 1.5 - 6.5 K/cumm [facility] Imm gran abs 0.0 0.0 - 0.1 K/cumm [facility] Lymphocyte abs 0.2(L) 0.8 - 3.3 K/cumm [facility] Monocyte abs 0.2 0.2 - 0.8 K/cumm [facility] Eosinophil abs 0.0 0.0 - 0.5 K/cumm [facility] Basophil abs 0.0 0.0 - 0.1 K/cumm [facility] Neutrophil pct 92.8 % [facility] Comment: Interpretive Data Percent cell count reference ranges are not reported, since discordance with absolute values may lead to misinterpretation of CBC data. Current Interpretive Data was last revised on 2018. Imm gran pct 0.5 % [facility] Comment: Interpretive Data Percent cell count reference ranges are not reported, since discordance with absolute values may lead to misinterpretation of CBC data. Current Interpretive Data was last revised on 2018. Lymphocyte pct 2.7 % [facility] Comment: Interpretive Data Percent cell count reference ranges are not reported, since discordance with absolute values may lead to misinterpretation of CBC data. Current Interpretive Data was last revised on 2018. Monocyte pct 3.5 % [facility] Comment: Interpretive Data Percent cell count reference ranges are not reported, since discordance with absolute values may lead to misinterpretation of CBC data. Current Interpretive Data was last revised on 2018. Eosinophil pct 0.2 % [facility] Comment: Interpretive Data Percent cell count reference ranges are not reported, since discordance with absolute values may lead to misinterpretation of CBC data. Current Interpretive Data was last revised on 2018. Basophil pct 0.3 % [facility] Comment: Interpretive Data Percent cell count reference ranges are not reported, since discordance with absolute values may lead to misinterpretation of CBC data. Current Interpretive Data was last revised on 2018. Blood 10/13/2023 6:50 AM CEMENT CUTTER 10/13/2023 7:55 AM CEMENT CUTTER us Severo Merlos MD LAB BLOOD ORDERABLES Final R esult [facility] One [facility] Department [place] [address] * (ABNORMAL) CBC with auto differential (10/13/2023 6:50 AM CEMENT CUTTER) WBC 6.2 3.8 - 9.9 K/cumm [facility] Hgb 13.3 13.0 - 17.5 g/dL [facility] Comment: Interpretive Data A reference range for this assay has not been established for patients with an unknown legal sex. Please refer to the laboratory test catalog for established sex-specific reference intervals. Current interpretive data was last revised on 2023. Hct 37.0(L) 38.9 - 50.3 % [facility] Comment: Interpretive Data A reference range for this assay has not been established for patients with an unknown legal sex. Please refer to the laboratory test catalog for established sex-specific reference intervals. Current interpretive data was last revised on 2023. Plt 143(L) 150 - 400 K/cumm [facility] MPV 11.6 9.1 - 12.3 fL [facility] RBC 4.11(L) 4.30 - 5.80 M/cumm [facility] Comment: Interpretive Data A reference range for this assay has not been established for patients with an unknown legal sex. Please refer to the laboratory test catalog for established sex-specific reference intervals. Current interpretive data was last revised on 2023. MCV 90.0 81.3 - 96.4 fL [facility] MCH 32.4 27.1 - 33.3 pg [facility] MCHC 35.9(H) 32.3 - 35.7 g/dL [facility] RDW CV 12.8 11.1 - 14.9 % [facility] RDW SD 41.8 35.7 - 48.1 fL [facility] NRBC abs 0.00 0.00 - 0.01 K/cumm [facility] Blood 10/13/2023 6:50 AM CEMENT CUTTER 10/13/2023 7:55 AM CEMENT CUTTER us Severo Merlos MD LAB BLOOD ORDERABLES Final R esult [facility] One [facility] Department [place] [address] * (ABNORMAL) Comprehensive metabolic panel (10/13/2023 6:50 AM CEMENT CUTTER) Sodium 137 135 - 145 mmol/L [facility] Potassium, pl 3.7 3.3 - 4.9 mmol/L [facility] Chloride 101 97 - 110 mmol/L [facility] CO2 26 22 - 32 mmol/L [facility] Anion gap 10 2 - 15 mmol/L [facility] BUN 17 6 - 25 mg/dL [facility] Creatinine 0.82 0.80 - 1.30 mg/dL [facility] Glucose 160 70 - 199 mg/dL [facility] Comment: Interpretive Data Fasting glucose >/= [...] Calcium 9.1 8.5 - 10.3 mg/dL [facility] Bilirubin, total 0.7 0.1 - 1.2 mg/dL [facility] Protein, pl 6.8 6.5 - 8.5 g/dL [facility] Albumin 3.6 3.5 - 5.0 g/dL [facility] Alk phos 113 40 - 130 Units/L [facility] ALT 68(H) 7 - 55 Units/L [facility] Comment:Reviewed AST 50 10 - 50 Units/L [facility] Blood 10/13/2023 6:50 AM CEMENT CUTTER 10/13/2023 7:55 AM CEMENT CUTTER us Severo Merlos MD LAB BLOOD ORDERABLES Final R esult [facility] One [facility] Department [place] [address] * [place] Fluoroscopy < 1 Hour (10/13/2023 3:00 AM CEMENT CUTTER) Narrative [facility] - 10/13/2023 10:04 AM CEMENT CUTTER The images from this study are not interpreted by Radiology. ??Please refer to the physician's procedure / OR operative note. Severo Merlos MD IMG FLUOROSCOPY PROCEDURES F inal Result Performing Organization Address City/[facility]/ZIP Co de Phone Number [email or web address] * MRI Spine Total Complete W WO Contrast (10/12/2023 11:44 PM CEMENT CUTTER) Anatomical Region Laterality Modality Spine N/A Magnetic Resonan ce 10/13/2023 12:4 6 AM CEMENT CUTTER Impressions 10/13/2023 11:39 AM CEMENT CUTTER 1. ??Redemonstrated degenerative disc disease of the [...] Kym Buckley M.D. Narrative 10/13/2023 11:39 AM CEMENT CUTTER EXAMINATION: 1. Magnetic resonance imaging (MRI) of [...] * Blood culture Blood (10/12/2023 9:38 PM CEMENT CUTTER) Report Final Report: No growth [facility] Blood 10/12/2023 9:38 PM CEMENT CUTTER 10/12/2023 9:59 PM CEMENT CUTTER Narrative [facility] - 10/17/2023 7:00 AM CEMENT CUTTER Second site Collection->Peripheral 1. ?Blood cultures are [...] organism identification may be performed using the Frilpigene Gram-Positive Blood Culture Assay. This assay detects microbial DNA in positive blood culture broth via hybridization of target DNA to capture oligonucleotides on a microarray. This assay has been cleared by the [place] Food and Drug Administration and its performance characteristics have been verified by the [facility]. 5. ?For questions about this culture, contact the Microbiology Laboratory at [phone]. Interpretive data was last revised on 2020. Amol Hargrove MD LAB MICROBIOLOGY - [facility] ORDERABLES Final Result [facility] One [facility] Department [place] [address] * CT Chest Abdomen Pelvis W Contrast (10/12/2023 9:00 PM CEMENT CUTTER) Anatomical Region Laterality Modality Body N/A Computed Tomogra phy 10/12/2023 9:35 PM CEMENT CUTTER Impressions 10/13/2023 10:26 AM CEMENT CUTTER 1. ??Obstructing renal calculus in unchanged position [...] Mich Cabrera M.D. Narrative 10/13/2023 10:26 AM CEMENT CUTTER EXAMINATION: CT CHEST ABDOMEN PELVIS W CONTRAST [...] agrees with it. Electronically signed by: Mich Cabrear M.D. Amol Hargrove MD IMG CT PROCEDURES Fin al Result * (ABNORMAL) Erythrocyte sedimentation rate (10/12/2023 7:50 PM CEMENT CUTTER) Erythrocyte sedimentation rate 48(H) 1 - 20 mm/hr [facility] Blood 10/12/2023 7:50 PM CEMENT CUTTER 10/12/2023 8:11 PM CEMENT CUTTER Rafael Cowan MD LAB BLOOD ORDERABLES Fin al Result [facility] One [facility] Department [place] [address] * (ABNORMAL) CRP (acute phase) (10/12/2023 7:50 PM CEMENT CUTTER) CRP 210.7(H) <=10.0 mg/L [facility] Blood 10/12/2023 7:50 PM CEMENT CUTTER 10/12/2023 8:11 PM CEMENT CUTTER us Rafael Cowan MD LAB BLOOD ORDERABLES Fin al Result [facility] One [facility] Department [place] [address] * eGFR (10/12/2023 7:50 PM CEMENT CUTTER) eGFR 81 >=60 mL/min/1. 73 m2 [facility] Comment: Interpretive Data Reference Interval Normal ?>/= [...] last reviewed 2021. Blood 10/12/2023 7:50 PM CEMENT CUTTER 10/12/2023 8:23 PM CEMENT CUTTER Rafael Cowan MD LAB BLOOD ORDERABLES Fin al Result Performing Organization Address City/[facility] Co de Phone Number [facility] Department [place] [address] * (ABNORMAL) Urine culture Urine (10/12/2023 7:50 PM CEMENT CUTTER) Report Final Report: Greater than or equal to 100,000 colonies/mL of Escherichia coli Greater than or equal to 100,000 colonies/mL of Escherichia coli #2 For susceptibility results, refer to accession number [id number] on the urine culture from 10/11/23 (.) [facility] Organism ESCHERICHIA COLI [facility] Organism ESCHERICHIA COLI [facility] Urine 10/12/2023 7:50 PM CEMENT CUTTER 10/12/2023 9:46 PM CEMENT CUTTER Narrative [facility] - 10/14/2023 9:24 AM CEMENT CUTTER Urine culture reflexed based upon urinalysis results. Testing performed by [facility] ([phone]) Rafael Cowan MD LAB MICROBIOLOGY - GENER AL ORDERABLES Final Result Performing Organization Address [facility] de Phone Number [facility] One [facility] Department [place] [address] * (ABNORMAL) Urinalysis, microscopic only (10/12/2023 7:50 PM CEMENT CUTTER) WBC, ur >50(A) 0 - 5 /HPF [facility] RBC, ur 6-10(A) 0 - 2 /HPF [facility] Bacteria, ur 3+(A) [facility] Culture Reflex Comment Reflex to urine culture will be performed. [facility] Urine 10/12/2023 7:50 PM CEMENT CUTTER 10/12/2023 8:11 PM CEMENT CUTTER Rafael Cowan MD LAB URINE ORDERABLES Fin al Result [facility] One [facility] Department [place] [address] * (ABNORMAL) Differential, auto (10/12/2023 7:50 PM CEMENT CUTTER) Neutrophil abs 6.4 1.5 - 6.5 K/cumm [facility] Imm gran abs 0.0 0.0 - 0.1 K/cumm [facility] Lymphocyte abs 0.7(L) 0.8 - 3.3 K/cumm [facility] Monocyte abs 0.9(H) 0.2 - 0.8 K/cumm [facility] Eosinophil abs 0.0 0.0 - 0.5 K/cumm [facility] Basophil abs 0.0 0.0 - 0.1 K/cumm [facility] Neutrophil pct 79.1 % [facility] Comment: Interpretive Data Percent cell count reference ranges are not reported, since discordance with absolute values may lead to misinterpretation of CBC data. Current Interpretive Data was last revised on 2018. Imm gran pct 0.5 % [facility] Comment: Interpretive Data Percent cell count reference ranges are not reported, since discordance with absolute values may lead to misinterpretation of CBC data. Current Interpretive Data was last revised on 2018. Lymphocyte pct 8.4 % [facility] Comment: Interpretive Data Percent cell count reference ranges are not reported, since discordance with absolute values may lead to misinterpretation of CBC data. Current Interpretive Data was last revised on 2018. Monocyte pct 11.4 % [facility] Comment: Interpretive Data Percent cell count reference ranges are not reported, since discordance with absolute values may lead to misinterpretation of CBC data. Current Interpretive Data was last revised on 2018. Eosinophil pct 0.4 % [facility] Comment: Interpretive Data Percent cell count reference ranges are not reported, since discordance with absolute values may lead to misinterpretation of CBC data. Current Interpretive Data was last revised on 2018. Basophil pct 0.2 % [facility] Comment: Interpretive Data Percent cell count reference ranges are not reported, since discordance with absolute values may lead to misinterpretation of CBC data. Current Interpretive Data was last revised on 2018. Blood 10/12/2023 7:50 PM CEMENT CUTTER 10/12/2023 8:11 PM CEMENT CUTTER us Rafael Cowan MD LAB BLOOD ORDERABLES Fin al Result [facility] Department [place] [address] * Blood culture Blood (10/12/2023 7:50 PM CEMENT CUTTER) Report Final Report: No growth [facility] Blood 10/12/2023 7:50 PM CEMENT CUTTER 10/12/2023 8:32 PM CEMENT CUTTER Narrative [facility] - 10/17/2023 7:00 AM CEMENT CUTTER Collection->Peripheral 1. ?Blood cultures are incubated for [...] organism identification may be performed using the Frilpigene Gram-Positive Blood Culture Assay. This assay detects microbial DNA in positive blood culture broth via hybridization of target DNA to capture oligonucleotides on a microarray. This assay has been cleared by the [place] Food and Drug Administration and its performance characteristics have been verified by the [facility]. 5. ?For questions about this culture, contact the Microbiology Laboratory at [phone]. Interpretive data was last revised on 2020. Amol Hargrove MD LAB MICROBIOLOGY - GE NERAL ORDERABLES Final Result Performing Organization Address City/[facility]/ZIP Co de Phone Number [facility] [place] [address] * Lactate (10/12/2023 7:50 PM CEMENT CUTTER) Lactate 1.1 0.7 - 2.0 mmol/L [facility] Blood 10/12/2023 7:50 PM CEMENT CUTTER 10/12/2023 8:23 PM CEMENT CUTTER Amol Hargrove MD LAB BLOOD ORDERABLES Final Result Performing Organization Address [facility] de Phone Number [facility] [place] [address] * (ABNORMAL) Urinalysis reflex to microscopic and culture Urine (10/12/2023 7:50 PM CEMENT CUTTER) Color, ur Camilo Yellow [facility] Clarity, ur Turbid(A) Clear [facility] Specific gravity, ur 1.025 1.003 - 1.030 [facility] pH, urine 6.0 [facility] Comment: Interpretive Data ? Urine pH is affected by diet, medications, systemic acid-base disturbances, and renal tubular function. ??pH may affect urinary stone formation. ??For example, urine pH below 6.0 may help reduce the tendency for calcium phosphate stones and pH greater than 6.0 may reduce the tendency for uric acid stone formation. Source: [facility] Current Interpretive Data was last revised on 2017 Protein, ur ql 3+(A) Negative [facility] Glucose, ur ql Negative Negative [facility] Ketones, ur Negative Negative [facility] Bilirubin, ur Negative Negative [facility] Blood, ur 2+(A) Negative [facility] Urobilinogen, ur >=8.0(A) <2.0 mg/dL [facility] Nitrite, ur Negative Negative [facility] Leukocyte esterase, ur 3+(A) Negative [facility] UA reflex comment Reflex to microscopic UA will be performed. [facility] Urine 10/12/2023 7:50 PM CEMENT CUTTER 10/12/2023 8:11 PM CEMENT CUTTER us Rafael Cowan MD LAB MICROBIOLOGY - GENER AL ORDERABLES Final Result [facility] Department [place] [address] * (ABNORMAL) CBC with auto differential (10/12/2023 7:50 PM CEMENT CUTTER) WBC 8.1 3.8 - 9.9 K/cumm [facility] Hgb 13.7 13.0 - 17.5 g/dL [facility] Comment: Interpretive Data A reference range for this assay has not been established for patients with an unknown legal sex. Please refer to the laboratory test catalog for established sex-specific reference intervals. Current interpretive data was last revised on 2023. Hct 38.5(L) 38.9 - 50.3 % [facility] Comment: Interpretive Data A reference range for this assay has not been established for patients with an unknown legal sex. Please refer to the laboratory test catalog for established sex-specific reference intervals. Current interpretive data was last revised on 2023. Plt 155 150 - 400 K/cumm [facility] MPV 11.3 9.1 - 12.3 fL [facility] RBC 4.15(L) 4.30 - 5.80 M/cumm [facility] Comment: Interpretive Data A reference range for this assay has not been established for patients with an unknown legal sex. Please refer to the laboratory test catalog for established sex-specific reference intervals. Current interpretive data was last revised on 2023. MCV 92.8 81.3 - 96.4 fL [facility] MCH 33.0 27.1 - 33.3 pg [facility] MCHC 35.6 32.3 - 35.7 g/dL [facility] RDW CV 12.7 11.1 - 14.9 % [facility] RDW SD 43.3 35.7 - 48.1 fL [facility] NRBC abs 0.00 0.00 - 0.01 K/cumm [facility] Blood 10/12/2023 7:50 PM CEMENT CUTTER 10/12/2023 8:11 PM CEMENT CUTTER Rafael Cowan MD LAB BLOOD ORDERABLES Fin al Result [facility] Department [place] [address] * (ABNORMAL) Basic metabolic panel (10/12/2023 7:50 PM CEMENT CUTTER) Pathologist [facility] Sodium 133(L) 135 - 145 mmol/L [facility] Potassium, pl 3.8 3.3 - 4.9 mmol/L [facility] Chloride 97 97 - 110 mmol/L [facility] CO2 27 22 - 32 mmol/L [facility] Anion gap 9 2 - 15 mmol/L [facility] BUN 22 6 - 25 mg/dL [facility] Creatinine 0.99 0.80 - 1.30 mg/dL [facility] Glucose 166 70 - 199 mg/dL [facility] Comment: Interpretive Data Fasting glucose >/= [...] 2022. Calcium 9.1 8.5 - 10.3 mg/dL [facility] Blood 10/12/2023 7:50 PM CEMENT CUTTER 10/12/2023 8:11 PM CEMENT CUTTER Rafael Cowan MD LAB BLOOD ORDERABLES Fin al Result [facility] Department [place] [address] documented in this encounter Visit Diagnoses Diagnosis [...] 10/25/23 at 0806 Given 10/29/2023 4:49 AM CEMENT CUTTER 5 mg Given 10/27/2023 9:14 AM CEMENT CUTTER 5 mg Given 10/25/2023 2:34 PM CEMENT CUTTER 5 mg dilTIAZem XR (CARDIZEM CD,DILACOR XR) 24 hour capsule 240 mg 240 mg, oral, Daily, First dose on Sun10/30/23 at 0900, Do not crush, chew, cut, dissolve, open or otherwise manipulate tablet/capsule. Given 10/30/2023 9:56 AM CEMENT CUTTER 240 mg diphenhydrAMINE (BENADRYL) tab/cap 25 mg 25 mg, oral, 4 times daily PRN, itching, Starting on 10/28/23 at 0113 Given 10/28/2023 9:20 AM CEMENT CUTTER 25 mg Given 10/28/2023 1:19 AM CEMENT CUTTER 25 mg diphenhydrAMINE-zinc acetate 2-0.1 % cream topical, Daily PRN, itching, Starting on 10/27/23 at 0913, Apply to affected area: IV access site, Indications: Pruritus of SkinIndications:Pruritus of Skin Given 10/27/2023 9:15 PM CEMENT CUTTER Given 10/27/2023 1:11 PM CEMENT CUTTER enoxaparin (LOVENOX) syringe 80 mg 80 mg (rounded from 88.6 mg = 1 mg/kg ? 88.6 kg), subcutaneous, Every 12 hours scheduled, First dose (after last modification) on Sun10/26/23 at 1815, Indications: Pulmonary EmbolismIndications:Pulmonary Embolism Given 10/30/2023 9:56 AM CEMENT CUTTER 80 mg Right Upper Abdomen Given 10/29/2023 9:34 PM CEMENT CUTTER 80 mg Ri ght Upper Abdomen Given 10/29/2023 9:31 AM CEMENT CUTTER 80 mg Le ft Upper Abdomen gabapentin (NEURONTIN) capsule 300 mg 300 mg, oral, Every 8 hours scheduled, First dose on Sun10/23/23 at 2345, Indications: PainIndications:Pain Given 10/30/2023 3:39 PM CEMENT CUTTER 300 mg Given 10/30/2023 5:19 AM CEMENT CUTTER 300 mg Given 10/29/2023 9:34 PM CEMENT CUTTER 300 mg HYDROmorphone (DILAUDID) injection 0.5 mg 0.5 mg, intravenous, Administer over 2 Minutes, Every 2 hours PRN, 2nd line for pain, Starting on Sun10/24/23 at 2245, Indications: PainIndications:Pain Given 10/26/2023 6:35 PM CEMENT CUTTER 0.5 mg Given 10/25/2023 11:36 AM CEMENT CUTTER 0.5 mg Given 10/25/2023 8:41 AM CEMENT CUTTER 0.5 mg iothalamate meglumine (CONRAY) 60 % injection As needed, Starting on Sun10/13/23 at 0329, Intra-Op Given 10/13/2023 3:29 AM CEMENT CUTTER 30 mL irbesartan (AVAPRO) tablet 300 mg 300 mg, oral, Daily, First dose on Sun10/30/23 at 0900 Given 10/30/2023 9:56 AM CEMENT CUTTER 300 mg levETIRAcetam (KEPPRA) tablet 1,000 mg 1,000 mg, oral, 2 times daily, First dose on Sun10/24/23 at 2100, May mix with 120 mL of enteral nutrition formula or disperse crushed tablets (500 mg tablet strength studied) in 10 mL of water, shake for 5 minutes to dissolve, and administer immediately via enteral feeding tube Given 10/30/2023 9:56 AM CEMENT CUTTER 1,000 m g Given 10/29/2023 9:34 PM CEMENT CUTTER 1,000 mg Given 10/29/2023 9:31 AM CEMENT CUTTER 1,000 mg lidocaine (LIDODERM) 5 % patch 2 patch 2 patch, transdermal, Administer over 12 Hours, Daily, First dose on Sun10/24/23 at 1130, Do not cover the holes on the top side of the patch., Apply to affected area: chest Medication Applied 10/28/2023 1:26 PM CEMENT CUTTER 2 patches Other (Comment) Medication Applied 10/27/2023 1:11 PM CEMENT CUTTER 2 patches Back Medication Applied 10/25/2023 11:36 AM CEMENT CUTTER 2 patches Back ondansetron (ZOFRAN) injection 4 [...] Gastric Disorder,home med Given 10/30/2023 9:56 AM CEMENT CUTTER 40 mg Given 10/29/2023 9:31 AM CEMENT CUTTER 40 mg Given 10/28/2023 9:17 AM CEMENT CUTTER 40 mg polyethylene glycol (MIRALAX) packet 17 g 17 g, oral, 2 times daily, First dose (after last modification) on Sun10/26/23 at 2100, Indications: constipationIndications:constipation Given 10/28/2023 9:16 AM CEMENT CUTTER 17 g Given 10/27/2023 9:13 AM CEMENT CUTTER 17 g ramelteon (ROZEREM) tablet 8 mg 8 mg, oral, Nightly PRN, sleep, Starting on 10/28/23 at 2033, Indications: Sleep-Onset InsomniaIndications:Sleep-Onset Insomnia Given 10/29/2023 10:55 PM CEMENT CUTTER 8 mg Given 10/28/2023 9:31 PM CEMENT CUTTER 8 mg senna-docusate (PERICOLACE) 8.6-50 mg per tablet 2 tablet 2 tablet, oral, 2 times daily, First dose on Sun10/23/23 at 2345, Hold for diarrhea., Indications: constipationIndications:constipation Given 10/28/2023 9:16 AM CEMENT CUTTER 2 table ts Given 10/27/2023 9:14 AM CEMENT CUTTER 2 tablets Given 10/26/2023 9:35 AM CEMENT CUTTER 2 tablets sodium chloride 0.9% flush 0.5-20 mL 0.5-20 mL, intra-catheter, Every 8 hours scheduled, First dose on Sun10/23/23 at 2345, Flush volume based on line type and size. , Indications: FlushingIndications:Flushing Given 10/30/2023 5:20 AM CEMENT CUTTER 10 mL Given 10/29/2023 9:35 PM CEMENT CUTTER 10 mL Given 10/29/2023 2:00 PM CEMENT CUTTER 10 mL sodium chloride 0.9% flush 0.5-20 mL 0.5-20 mL, intra-catheter, Every 8 hours scheduled, First dose on Sun10/23/23 at 2330, Flush volume based on line type and size. Given 10/30/2023 5:20 AM CEMENT CUTTER 10 mL Given 10/29/2023 9:35 PM CEMENT CUTTER 10 mL Given 10/29/2023 2:01 PM CEMENT CUTTER 10 mL sodium chloride 0.9% irrigation As needed, Starting on 10/13/23 at 0251, Intra-Op Given 10/13/2023 2:51 AM CEMENT CUTTER 500 mL Surgical Site tamsulosin (FLOMAX) extended release capsule 0.8 mg 0.8 mg, oral, Daily with dinner, First dose on Sun10/24/23 at 1800, Do not crush, chew, cut, dissolve, open or otherwise manipulate tablet/capsule. Given 10/29/2023 6:50 PM CEMENT CUTTER 0.8 mg Given 10/28/2023 6:11 PM CEMENT CUTTER 0.8 mg Given 10/27/2023 4:49 PM CEMENT CUTTER 0.8 mg documented in this encounter Discontinued [...] Recently Administered Medications Times are shown in CEMENT CUTTER. 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
--- OUTSIDE RECORDS SUMMARY | 2024-11-05 23:04 | XMS_ITS | Encounter Summary ---
Author Organization [facility] Address [address] [place] [address] Phone Care Team Providers Care Anaesthesiologist Name Role Phone Rl Medina DO Primary Care Provider Em Witt RN Unavailable Marlen Gray RN Unavailable No, Physician Primary Care Provider [phone] Encounter Details Date Type Department Care Team (Late st Contact Info) Description 07/06/2023 Documentation [facility] Urology [address] [facility] Medical Office Building [address] [place] [address] Pan Irene MD [address] [facility] [address] [place] [address] Social History Tobacco Use Types [...] on file Legal Sex Male 9:07 PM FERN CUTTER Gender Identity Not on file Sexual Orientation Not on file documented as of this encounter Plan of Treatment Not on file documented as of this encounter Visit Diagnoses Not on filedocumented in this encounter Care Teams Anaesthesiologist Relationship Specialty Start Date End Date Rl Medina DO [address] [place] [address] PCP - General 08/09/17 05/25/24 No, Physician PCP - General 05/26/24 Em Witt RN [address] [address] [facility] Outpatient Entry Level Receptionist 10/30/23 10/30/23 Marlen Gray RN [address] [address] [facility] Outpatient Entry Level Receptionist 10/31/23 11/15/23 documented as of this encounter
--- OUTSIDE RECORDS SUMMARY | 2024-11-05 23:04 | XMS_ITS | Encounter Summary ---
Author Organization [facility] Healthcare Address [address] [place] [address] Care Team Providers Care Director Of Restaurant Name Role Phone Rl Medina DO Primary Care Provider [phone] Encounter Details Date Type Department Care Team (Latest Contact Info) Description 09/13/2023 9:47 AM TAILOR'S AIDE - 09/13/2023 11:59 PM TAILOR'S AIDE Hospital Encounter 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 Not on file [...] 1 tablet (10 mg total) by mouth enrober before breakfast 4 cholecalciferol (VITAMIN D-3) 5,000 unit capsuleIndication s:Vitamin D Deficiency Take 1 capsule (5,000 Units total) by mouth every morning 4 coenzyme Q10 100 mg capsule Take 1 capsule (100 mg total) by mouth enrober before breakfast 4 cyclobenzaprine (FLEXERIL) 10 mg tablet Take 1 tablet (10 mg total) by mouth 3 (three) times a day as needed 08/19/2023 3 DILT-XR 240 mg 24 hr capsuleIndication s:hypertension Take 1 capsule (240 mg total) by mouth 2 (two) times a day 0 05/12/2019 4 fish,bora,flax oils-om3,6,9no1 400-400-400 mg capsuleIndication s:Supplement Take 1 tablet by mouth enrober before breakfast 4 HYDROcodone-aceta minophen (NORCO) 5-325 [...] Read Routine (OP Routine) 09/13/2023 9:51 AM TAILOR'S AIDE Lumbar spine pain documented in this encounter Results * XR Spine Lumbar 4 or More Views (09/13/2023 9:51 AM TAILOR'S AIDE) Anatomical Region Laterality Modality Spine N/A Computed Radiogr aphy 09/13/2023 11:0 0 AM TAILOR'S AIDE Impressions 09/13/2023 11:55 AM TAILOR'S AIDE 1. 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 Dictated by: John Armendariz MD The radiology attending physician has personally reviewed this study, and had reviewed and/or edited this written report and agrees with it. Electronically signed by: Justin Choi MD Narrative 09/13/2023 11:55 AM TAILOR'S AIDE EXAMINATION: XR SPINE LUMBAR 4 OR MORE [...] pain documented in this encounter Care Teams Director Of Restaurant Relationship Specialty Start Date End Date Rl Medina DO [address] [place] [address] PCP - General 08/09/17 05/25/24 documented as of this encounter
--- OUTSIDE RECORDS SUMMARY | 2024-11-05 23:04 | XMS_ITS | Encounter Summary ---
Author Organization [facility] Address [address] [place] [address] Phone Care Team Providers Care Superintendent Maintenance Name Role Phone Rl Medina DO Primary Care Provider [phone] Reason for Visit * Reason Comments OAB Follow-up Medication didn't wo rk and gave him dry mouth. He would like to discuss Botox. * Consultation (Routine) - Closed Specialty Diagnoses / Procedures Referred By Manisha gale Referred To Contact Urology Diagnoses Bladder neck obstruction Rl Medina DO [address] [place] [address] Phone: tel: fax: [facility] (All Locations) Referral ID Status Reason Start Date Expiration Date V isits Requested Visits Authorized [id number] Closed Specialty Services Required 10/10/2022 11/09/2023 99 99 Encounter Details Date Type Department Care Team (Late st Contact Info) Description 04/17/2023 1:20 PM CDT Office Visit [facility] Urology [address] [facility] Medical Office Building [address] [place] [address] Pan Irene MD [address] [facility] [address] [place] [address] Overactive bladder (Primary Dx); Urgency incontinence Social [...] file Legal 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 José Miguel Hernandez [...] emptying or needing catheterization. He would like to proceed with office 100 units injections Botox: Discussed [...] all indicated procedures. José Miguel Irene MD technician semiconductor development (Urology) Division of Urologic Surgery [facility] Office [phone] 04/17/2023 11:53 AM Note: This note was [...] documented as of this encounter Care Teams Superintendent Maintenance Relationship Specialty [place] [address] [place] [address] PCP - General 08/09/17 05/25/24 documented as of this encounter
--- OUTSIDE RECORDS SUMMARY | 2024-11-05 23:04 | XMS_ITS | Encounter Summary ---
Author Organization [facility] Healthcare Address [address] [place] [address] Care Team Providers Care Hospice Chaplain Name Role Phone Rl Medina DO Primary Care Provider Reason for Referral * MRI/CAT/PET Scan (Routine) - Closed Specialty Diagnoses / Procedures Referred By Manisha t Referred To Contact Radiology Diagnoses Lumbar radiculopathy Procedures CT Lumbar Spine WO Contrast CT Lumbar Spine WO Contrast CT Lumbar Spine WO Contrast CT Lumbar Spine WO Contrast Marcial Vu Jr., MD [address] [facility] [place] [address] Phone: tel: fax: [place] [address] [place] [address] Referral ID Status Reason Start Date Expiration Date Visits Re quested Visits Authorized [id number] Closed 10/04/2023 11/02/2024 1 1 GER RETIREMENT Reason for Visit * Auth/Cert Specialty Diagnoses / Procedures Referred By Manisha t Referred To Contact Diagnoses Ureteral colic Procedures na Referral ID Status Reason Start Date Expiration Date Visits Re quested Visits Authorized [id number] 1 1 Encounter Details Date Type Department Care Team (Latest Contact Info) Description 10/11/2023 8:54 AM MANAGER RETIREMENT - 10/11/2023 11:59 PM MANAGER RETIREMENT Hospital Encounter [facility] [address] [place] [address] Marcial Vu Jr., MD [address] [facility] 6A/6B/12A [place] [address] Lumbar radiculopathy Discharge Disposition: Discharge to home [...] file Legal Sex Male 9:07 PM MANAGER RETIREMENT Gender Identity Not on file Sexual Orientation Not on file 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 Not on file Not [...] tablet (10 mg total) by mouth glass cutter helper before breakfast 11/29/19 24 cholecalciferol (VITAMIN D-3) 5,000 unit capsuleIndications :Vitamin D Deficiency Take 1 capsule (5,000 Units total) by mouth every morning 12/10/19 24 coenzyme Q10 100 mg capsule Take 1 capsule (100 mg total) by mouth glass cutter helper before breakfast 11/29/19 24 DILT-XR 240 mg 24 hr capsuleIndications :hypertension Take 1 capsule (240 mg total) by mouth 2 (two) times a day 0 05/12/2019 12/10/19 24 fish,bora,flax oils-om3,6,9no1 400-400-400 mg capsuleIndications :Supplement Take 1 tablet by mouth glass cutter helper before breakfast 11/16/19 24 irbesartan (AVAPRO) 300 [...] Read Routine (OP Routine) 10/11/2023 10:15 AM MANAGER RETIREMENT Lumbar radiculopathy documented in this encounter Results * CT Lumbar Spine WO Contrast (10/11/2023 10:15 AM MANAGER RETIREMENT) Anatomical Region Laterality Modality Spine N/A Computed Tomogra phy 10/11/2023 5:00 PM MANAGER RETIREMENT Impressions 10/11/2023 5:05 PM MANAGER RETIREMENT 1. Moderate degenerative changes of the lumbar [...] Zac Mcgarry M.D. Narrative 10/11/2023 5:05 PM MANAGER RETIREMENT EXAMINATION: CT of the lumbar spine without [...] unspecified documented in this encounter Care Teams Hospice Chaplain Relationship Specialty Start Date End Date Rl Medina DO [address] [place] [address] PCP - General 08/09/17 05/25/24 documented as of this encounter
--- OUTSIDE RECORDS SUMMARY | 2024-11-05 23:04 | XMS_ITS | Encounter Summary ---
Author Organization [facility] Address [address] [place] [address] Phone Care Team Providers Care Filing Or Registry Clerk Name Role Phone Rl Medina DO Primary Care Provider Encounter Details Date Type Department Care Team (Late st Contact Info) Description 10/12/2023 Documentation [facility] Orthopaedic Surgery [address] [facility] Medical Office Building [address] [place] [address] Marcial Vu Jr., MD [address] [facility] [place] [address] Social History Tobacco Use Types [...] on file Legal Sex Male 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 I would recommend a full infection workup with chest x-ray and UA as well as a metastaticcancer workup given his cancer history including a CT chest/abdomen pelvis, ESR/CRP/CBC/CMP, SPEP/UPEP, and any additional workup that the medicine team recommend. Mr. Evans and Val understand and agree with the plan. Marcial Vu Jr., MD Grievance Manager Department of Orthopaedic Surgery Division of Spine Surgery [facility] [employer] [place], [place] HEALTH SCHEDULER documented in this encounter Plan of Treatment Not on file documented as of this encounter Visit Diagnoses Not on filedocumented in this encounter Care Teams Filing Or Registry Clerk Relationship Specialty Start Date End Date Rl Medina DO [address] [place] [address] PCP - General 08/09/17 05/25/24 documented as of this encounter
--- OUTSIDE RECORDS SUMMARY | 2024-11-05 23:04 | XMS_ITS | Encounter Summary ---
Author Organization [facility] Address [address] [place] [address] Phone Care Team Providers Care Washer Assembler Name Role Phone Rl Medina DO Primary Care Provider [phone] Reason for Referral * MRI/CAT/PET Scan (Routine) - Closed Specialty Diagnoses / Procedures Referred By Manisha t Referred To Contact Radiology Diagnoses Lumbar radiculopathy Procedures CT Lumbar Spine WO Contrast CT Lumbar Spine WO Contrast CT Lumbar Spine WO Contrast CT Lumbar Spine WO Contrast Marcial Vu Jr., MD [address] [employer] [place] [address] Phone: tel: fax: [place] [address] [place] [address] Referral ID Status Reason Start Date Expiration Date Visits Re quested Visits Authorized [id number] Closed 10/04/2023 11/02/2024 1 1 OL CAFETERIA COOK [place] Reason for Visit * Reason Onset Date Comments Follow-up 09/24/2023 Encounter Details Date Type Department Care Team (Late st Contact Info) Description 09/24/2023 Telephone 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 Informed [place] pt will most likely obtain CT at a [facility] facility, but I will call them back if the plan changes. Tried to schedule CT on Sunday at [facility], no openings available. Spoke with pt today and informed him I will schedule his pre-op imaging/ appts after his surgical plan and date is finalized. This will be discussed with pt on Sunday. Pt in agreement with plan. OL CAFETERIA [employer]OOK [place] * Telephone Encounter - Galina Franco RN - 10/04/2023 3:59 PM CST Informed pt Iwill update him again once I hear back from [facility]. Pt in agreement with plan. OL [employer]FETERIA [place] OL [employer]IA [place] [place] * Addendum Note - Galina Franco RN - 10/04/2023 1:54 PM CSTAddended by: GALINA FRANCO on: 10/04/2023 01:54 PM Modules accepted: Orders OL [employer]IA [place] [place] * Telephone Encounter - Galina Franco RN - 10/04/2023 1:42 PM CST Spoke with pt today informing him Dr. Vu still would like for pt to obtain CT Lumbar Spine robot protocol. Pt requested for it to be completed at [facility], which is local facility. Informed pt that Dr. Vu is requesting special cuts for this CT so I am unsure if [facility] canobtain specific images that Dr. Vu is requesting. Informed pt I will check with [facility] but there is a chance that he will need to redo imaging study if improperly done at OSH. Pt requested I try to facilitate at OSH still. Will contact pt again once I have more insight. Spoke with CT radiology at [facility] to obtain protocol for CT Lumbar Spine WO Robot Protocol. Tech told me the robot protocol is thinner cuts, which is 1x1 instead of typical 2x2. Spoke with Jamaica,graphics edit technician at [facility], to see if her facility could perform CT robot protocol. [place] requested CT order be faxed to her, so she can further evaluate possibility of study being performed there. Jamacia will call me back with an answer once order is properly reviewed. Order faxed to [phone] OL [employer]IA [place] [place] * Telephone Encounter - Galina Franco RN - 10/02/2023 11:02 AM SCHOOL CAFETERIA COOK [place] Dr. Vu recommending pt come for clinic appt to discuss MRI results and to further discuss surgical options. Scheduled pt for clinic appt on Monday 10/08 at [facility]. Appt details provided to pt. OL CA[employer]ERIA [place]OOK [place] * Telephone Encounter - Galina Franco RN - 09/26/2023 2:[address] Vu, pt can be scheduled for L4-5 MIS TLIF at [facility]. Pt will also need CT Lumbar spine with robot protocol and Dexa scan. Contacted pt to discuss options for surgery date at [facility] since robotwill be used for procedure. Pt [...] on 10/01. Pt in agreement with plan. OL CAFETERIA COOK [place] OL CAFETERIA [employer]OOK [place] * Telephone Encounter - Galina Franco RN [...] Pt agreeable to a return call tomorrow. OL [employer]IA [employer]OOK [place] * Telephone Encounter - Glaina Franco RN - 09/24/2023 1:40 PM CST [...] his recommendations. Pt in agreement with plan. OL CAFETERIA COOK [place] documented in this encounter Plan of Treatment Not on file documented as of this encounter Results * CT Lumbar Spine WO Contrast (10/11/2023 10:15 AM SCHOOL CAFETERIA COOK [place]) Anatomical Region Laterality Modality Spine N/A Computed Tomogra phy 10/11/2023 5:00 PM SCHOOL CAFETERIA COOK [place] Impressions 10/11/2023 5:05 PM SCHOOL CAFETERIA COOK [place] 1. Moderate degenerative changes of the lumbar [...] Zac Mcgarry M.D. Narrative 10/11/2023 5:05 PM SCHOOL CAFETERIA COOK [place] EXAMINATION: CT of the lumbar spine without [...] unspecified documented in this encounter Care Teams Washer Assembler Relationship Specialty Start Date End Date Rl Medina DO [address] [place] [address] PCP - General 08/09/17 05/25/24 documented as of this encounter
--- OUTSIDE RECORDS SUMMARY | 2024-11-05 23:04 | XMS_ITS | Encounter Summary ---
Author Organization [facility] Address [address] [place] [address] Phone Care Team Providers Care Genetic Supervisor Name Role Phone Rl Medina DO Primary Care Provider Reason for Referral * MRI/CAT/PET Scan (Routine) - Closed Specialty Diagnoses / Procedures Referred By Manisha t Referred To Contact Radiology Diagnoses Lumbar spine pain Lumbar radiculopathy Procedures MRI Lumbar Spine WWO Contrast Marcial Vu Jr., MD [address] [address] Phone: tel: fax: [address] [address] Referral ID Status Reason Start Date Expiration Date Visits Re quested Visits Authorized [id number] Closed 09/13/2023 10/12/2024 1 1 L OPPORTUNITY DIRECTOR * Diagnostic Imaging (Routine) - Closed Specialty Diagnoses / Procedures Referred By Contac t Referred To Contact Radiology Diagnoses Lumbar radiculopathy Procedures IR Transforaminal Epidural Injection Lumbar Sacral 1 Level Left Marcial Vu Jr., MD [address] 6A/6B/12A [place] [address] Phone: tel: fax: [facility] [address] [place] [address] Referral ID Status Reason Start Date Expiration Date Visits Re quested Visits Authorized [id number] Closed 09/13/2023 11/04/2023 1 1 L OPPORTUNITY DIRECTOR Reason for Visit * Reason Comments New Patient Encounter Details Date Type Department Care Team (Late st Contact Info) Description 09/13/2023 10:20 AM EQUAL OPPORTUNITY DIRECTOR Office Visit [facility] Orthopaedic Surgery [address] [facility] 1st [address] [place] [address] Marcial Vu Jr., MD [address] 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 Not on file Not on file Not on file documented as of this encounter Last Filed Vital Signs Vital Sign Reading Time Taken Comments Blood Pressure - - Pulse - - Temperature - - Respiratory Rate - - Oxygen Saturation - - Inhaled Oxygen Concentration - - Weight 84.8 kg (187 lb) 09/13/2023 9:46 AM EQUAL OPPORTUNITY DIRECTOR Height 170.2 cm (5' 7 ) 09/13/2023 9:46 AM EQUAL OPPORTUNITY DIRECTOR Body Mass Index 29.29 09/13/2023 9:46 AM EQUAL OPPORTUNITY DIRECTOR documented in this encounter Patient Instructions * Patient Instructions* Galina Franco RN - 09/13/2023 10:20 AM EQUAL OPPORTUNITY DIRECTOR Hira Evans, 1950 Thank you for your visit today. Dr. Vu has recommended the following treatment: -Please obtain lumbar spine injection on 09/[address] Jones. If you need to reschedule this appointment, please call [phone], opt. [phone]. -Additional information on the injection is included below -We will send you a Pain Diary via [employer] message. Please complete it after obtaining the injection -Please contact our office two weeks after obtaining the injection with the Pain Diary results. This will help determine what the best treatment options will be moving forward. -Please also obtain MRI Lumbar Spine WWO -Our office will contact you with results of the MRI Please contact Galina Franco RN, BSN at [phone] or Kasey Mari MA, ATC at [phone] send a message through [employer] if you have any further questions or concerns. For medical emergencies, please call [phone] Kasey Mari MA, ATC Social Worker Clinical to Dr. Marcial Vu Department of Orthopedic Spine Surgery Galina Franco RN, BSN Clinical Nurse Coordinator to Dr. Marcial Vu Department of Orthopedic Spine Surgery Fluoroscopically (X-ray) Guided Injection Instructions You are scheduled for your injection with Dr. Jones on 09/21/23 at 9:20am. LOCATION: [address] [place] [address], [facility] [address] [address] *Please note that the time above is [...] regarding your procedure, contact our office at [phone]. Prior to the procedure: Allergies to x-ray [...] follow the additional guidelines below: Check fasting (sand cleaning machine operator prior to first meal of the day) [...] a change in medication dosing is warranted. L OPPORTUNITY DIRECTOR L OPPORTUNITY DIRECTOR L OPPORTUNITY DIRECTOR L OPPORTUNITY DIRECTOR documented in this encounter Progress Notes * [...] on vacation and took an airplane from [facility]. They dida lot of walking around [...] and denies drugs. 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 He and his enjoys staying active and walking for exercise. Past Medical History He has a past medical history of Allergic rhinitis, Arthritis, Cancer ([facility]) ([facility]) (prostate andmelonomia), Gastric reflux, GERD (gastroesophageal reflux disease), History of melanoma, Hypertension, Kidney stone, Personal history of prostate cancer, Pneumonia, and Seasonal allergies. He has no past medical history of Acute respiratory failure requiring reintubation ([facility]) ([facility]),Awareness under anesthesia, Delayed emergence from [...] agreement with this plan. Marcial Vu MD Construction Pit Worker Department of Orthopaedic Surgery Division of Spine Surgery [facility], [place] Professor Of Poultry Science done by [employer]; therefore, variances and inaccuracies may occur. I reviewed the patient problem list pertinent to the visit today, but the entire patient problem list was not reviewed today. Total time spent on this patient visit today was 45 minutes dedicated to chart review, independent imaging review, patient evaluation, examination, counseling and education, and coordination of care. L OPPORTUNITY DIRECTOR documented in this encounter Plan of Treatment Not on file documented as of this encounter Results * MRI Lumbar Spine WWO Contrast (10/01/2023 3:29 PM EQUAL OPPORTUNITY DIRECTOR) Anatomical Region Laterality Modality Spine N/A Magnetic Resonan ce 10/01/2023 4:11 PM EQUAL OPPORTUNITY DIRECTOR Impressions 10/01/2023 4:11 PM EQUAL OPPORTUNITY DIRECTOR Moderate degenerative changes of the lumbar spine, [...] Zac Mcgarry M.D. Narrative 10/01/2023 4:11 PM EQUAL OPPORTUNITY DIRECTOR EXAMINATION: Magnetic resonance imaging (MRI) of the [...] Sacral 1 Level Left (09/21/2023 10:03 AM EQUAL OPPORTUNITY DIRECTOR) Narrative RAD_PACS_[facility] - 09/21/2023 10:03 AM EQUAL OPPORTUNITY DIRECTOR The images from this study are not interpreted by Radiology. ??Please refer to the physician's procedure / OR operative note. MD RANDEE Ybarra Jr. IR PROCEDURES F inal Result RAD_PACS_[facility] * XR Spine Lumbar 4 or More Views (09/13/2023 9:51 AM EQUAL OPPORTUNITY DIRECTOR) Anatomical Region Laterality Modality Spine N/A Computed Radiogr aphy 09/13/2023 11:0 0 AM EQUAL OPPORTUNITY DIRECTOR Impressions 09/13/2023 11:55 AM EQUAL OPPORTUNITY DIRECTOR 1. 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 Dictated by: John Armendariz MD The radiology attending physician has personally reviewed this study, and had reviewed and/or edited this written report and agrees with it. Electronically signed by: Justin Choi MD Narrative 09/13/2023 11:55 AM EQUAL OPPORTUNITY DIRECTOR EXAMINATION: XR SPINE LUMBAR 4 OR MORE [...] 1 tablet (10 mg total) by mouth sand cleaning machine operator before breakfast 4 fish,bora,flax oils-om3,6,9no1 400-400-400 mg capsuleIndicatio ns:Supplement Take 1 tablet by mouth sand cleaning machine operator before breakfast 4 coenzyme Q10 100 mg capsule Take 1 capsule (100 mg total) by mouth sand cleaning machine operator before breakfast 4 Mounjaro 10 mg/0.5 mL [...] 3 added in this encounter Care Teams Genetic Supervisor Relationship Specialty Start Date End Date Rl Medina DO [address] [place] [address] PCP - General 08/09/17 05/25/24 documented as of this encounter
--- OUTSIDE RECORDS SUMMARY | 2024-11-05 23:04 | XMS_ITS | Encounter Summary ---
Author Organization [facility] Address [address] [place] [address] Phone Care Team Providers Care Assisted Living Executive Director Name Role Phone Rl Medina DO Primary Care Provider Encounter Details Date Type Department Care Team (Late st Contact Info) Description 10/11/2023 12:15 PM BUSINESS IMPROVEMENT MANAGER Clinical Support [facility] Orthopaedic Surgery [address] [facility] 6th [place] [address] [place] [address] Social History Tobacco Use Types [...] file Legal Sex Male 9:07 PM BUSINESS IMPROVEMENT MANAGER Gender Identity Not on file Sexual Orientation Not on file 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, [address] [place] [address] Admission Plan: 23 Hour Observation Post Operative Destination: Surgical/Ortho Floor Medications: has a current medication list which includes the following prescription(s): acyclovir (ZOVIRAX), cephalexin (KEFLEX), cetirizine (ZYRTEC), cholecalciferol (VITAMIN D-3), coenzyme q10, dilt-xr, fish,bora,flax oils- om3,6,9no1, irbesartan (AVAPRO), mounjaro, naproxen sodium, and omeprazole (PRILOSEC). Allergies: has No Known Allergies. PMH: Past Medical History: Diagnosis Date Allergic rhinitis Arthritis OA Cancer (CMS/HCC) ([facility]) prostate and melonomia Gastric reflux [...] Nurse Coordinator Department of Orthopaedic Spine Surgery NESS IMPROVEMENT MANAGER documented in this encounter Plan of Treatment Not on file documented as of this encounter Visit Diagnoses Not on filedocumented in this encounter Care Teams Assisted Living Executive Director Relationship Specialty Start Date End Date Rl Medina DO [address] [place] [address] PCP - General 08/09/17 05/25/24 documented as of this encounter
--- OUTSIDE RECORDS SUMMARY | 2024-11-05 23:04 | XMS_ITS | Encounter Summary ---
Author Organization [facility] Healthcare Address [address] [place] [address] Care Team Providers Care Statistics Intern Name Role Phone Rl Medina DO Primary Care Provider [phone] Reason for Visit * Auth/Cert Specialty Diagnoses / Procedures Referred By Contac t Referred To Contact Diagnoses Ureteral colic Procedures na Referral ID Status Reason Start Date Expiration Date Visits Re quested Visits Authorized [id number] 1 1 Encounter Details Date Type Department Care Team (Latest Contact Info) Description 10/11/2023 10:30 AM HYBRID TESTER Pre-Admission Testing [facility] Center for Preoperative Assessment and Planning [place] [facility] ([facility]) [address] [place] [id number] Preoperative testing (Primary Dx); Lumbar radiculopathy; Anticoagulation [...] Removal Reason: Discharge 10/13/23 1052 by Js Carednas RN 10/30/23 1404 by Matilda Gonzales, RN [...] 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 Not on file Not on file documented as of this encounter Last Filed Vital Signs Vital Sign Reading Time Taken Comments Blood Pressure 108/66 10/11/2023 11:03 AM HYBRID TESTER Pulse 66 10/11/2023 11:02 AM HYBRID TESTER Temperature - - Respiratory Rate 16 10/11/2023 11:0 2 AM HYBRID TESTER Oxygen Saturation 98% 10/11/2023 11: 02 AM HYBRID TESTER Inhaled Oxygen Concentration - - Weight 86.6 kg (190 lb 14.7 oz) 10/11/2023 2:13 PM HYBRID TESTER Height 172.7 cm (5' 8 ) 10/11/2023 11:0 2 AM HYBRID TESTER Body Mass Index 29.03 10/11/2023 11:02 AM HYBRID TESTER documented in this encounter Consult Notes * [...] capsule loratadine (CLARITIN) 10 mg tablet peg 480-deatypogkukk-peikflpq 1-0.36-0.2 % drops sildenafil, antihypertensive, (REVATIO) 20 [...] scale Body mass index is 29.03 kg/m??. Sterling body weight: 68.4 kg (150 lb 12.7 [...] of Weight Used for Estimated Protein : [place] Protein Needs Based on g/k.2 Total Protein [...] Damaris Whitehead RD, LD Clinical Dietitian, CPAP [phone] ID TESTER documented in this encounter Miscellaneous Notes * Perioperative Nursing Note - Annelise Escalante RN - 10/11/2023 10:30 AM CST Center for Preoperative Assessment and Planning Perioperative Nursing Note CPAP Clinic at [facility] ([facility]) Date: 10/11/23 This assessment was completed with [...] for the 10/11/23 encounter (Pre-Admission Testing) with [facility] CPAP NURSE Medication Sig Dispense Refill acyclovir [...] 1 tablet (10 mg total) by mouth regional geodetic advisor before breakfast cholecalciferol (VITAMIN D-3) 5,000 unit capsule Take 1 capsule (5,000 Units total) by mouth every morning coenzyme Q10 100 mg capsule Take 1 capsule (100 mg total) by mouth regional geodetic advisor before breakfast DILT-XR 240 mg 24 hr capsule Take 1 capsule (240 mg total) by mouth 2 (two) times a day 0 fish,bora,flax oils-om3,6,9no1 400-400-400 mg capsule Take 1 tablet by mouth regional geodetic advisor before breakfast irbesartan (AVAPRO) 300 mg tablet [...] by mouth every morning Implants Bone Cement [employer] 6197-9-010 Simplex P Full Dose Radiopaque Preblend Cement Bone Tobramycin - S0- [id number] - Implanted (Right) Knee Inventory item: [employer] Simplex P Full Dose Radiopaque Preblend Cement Bone [id number] Model/Cat number: [id number] Serial number: 0 Parachute Officer: [employer] Lot number: [id number] Device identifier: [id number] Device identifier type: GS1 As of 09/30/2019 Status: Implanted Other - see comments [employer] [id number] Kandace II 15mm Constrain Knee 5-6 Insert Articular Uhmwpe- S0 - [id number] - Implanted (Right) Knee Inventory item: [employer] Kandace Ii 15mm Constrain Knee 5-6 Insert ArticularUhmwpe [id number] Model/Cat number: [id number] Serial number: 0 Parachute Officer: [employer] Lot number: [id number] As of 09/30/2019 Status: Implanted [employer] [id number] Legion 10mm Screw Knee 6 Wedge Femoral - S0 - [id number] -Implanted (Right) Knee Inventory item: [employer] Legion 10mm Screw Knee 6 Wedge Femoral [id number] Model/Cat number: [id number] Serial number: 0 Parachute Officer: [employer] Device identifier: [id number] Device identifier type: [facility] As of 09/30/2019 Status: Implanted [employer] [id number] Legion Constrain Knee Right 6 Component Femoral Oxinium - S0 - [id number] - Implanted (Right) Knee Inventory item: [employer] Legion Constrain Knee Right 6 Component Femoral Ox[employer] [id number] Model/Cat number: [id number] Serial number: 0 Parachute Officer: [employer] Lot number: [id number] As of 09/30/2019 Status: Implanted [employer] [id number] Legion 5mm Alcon Step Knee Right Medial Left Lateral 5-6 Wedge - S0 - [id number] - Implanted (Right) Knee Inventory item: [employer] Legion 5mm Alcon Step Knee Right Medial Left Lateral5-6 Wedge [id number] Model/Cat number: [id number] Serial number: 0 Parachute Officer: [employer] Device identifier: [id number] Device identifier type: [facility] As of 09/30/2019 Status: Implanted [employer] [id number] Legion 15mm 160mm Press Fit Knee Stem Femoral - S0 - [id number] - Implanted (Right) Knee Inventory item: [employer] Legion 15mm 160mm Press Fit Knee Stem Femoral [id number] Model/Cat number: [id number] Serial number: 0 Parachute Officer: [employer] Lot number: [id number] As of 09/30/2019 Status: Implanted [employer] [id number] Legion 10mm Screw Knee 6 Wedge Femoral - S0 - [id number] -Implanted (Right) Knee Inventory item: [employer] Legion 10mm Screw Knee 6 Wedge Femoral [id number] Model/Cat number: [id number] Serial number: 0 Parachute Officer: [employer] Lot number: [id number] As of 09/30/2019 Status: Implanted [employer] [id number] Legion Revision Knee Right 5 Baseplate Tibial - S0 - [id number] - Implanted (Right) Knee Inventory item: [employer] Legion Revision Knee Right 5 Baseplate Tibial [id number] Model/Cat number: [id number] Serial number: 0 Parachute Officer: [employer] Lot number: [id number] Device identifier: [id number] Device identifier type: GS1 As of 09/30/2019 Status: Implanted [employer] [id number] Legion 15mm 160mm Press Fit Knee Stem Femoral - S0 - [id number] - Implanted (Right) Knee Inventory item: [employer] Legion 15mm 160mm Press Fit Knee Stem Femoral [id number] Model/Cat number: [id number] Serial number: 0 Parachute Officer: [employer] Lot number: [id number] Device identifier: [id number] Device identifier type: GS1 As of 09/30/2019 Status: Implanted [employer] [facility] 5517-F-501 Triathlon Cruciate Retain Bead Knee Left 5 Component Femoral Pa - Sn/A - [id number] - Implanted (Left) Knee Inventory item: [employer] Triathlon Cruciate Retain Bead Knee Left 5 Component Femoral Pa 5517-F-501 Model/Cat number: [id number] Serial number: N/A Parachute Officer: [employer] Lot number: [id number] Device identifier: [id number] Device identifier type: GS1 As of 10/17/2021 Status: Implanted [employer] [facility] 5536-B-600 Triathlon Knee 6 Baseplate Tibial Tritanium - Sn/A - [id number] - Implanted (Left) Knee Inventory item: [employer] Triathlon Knee 6 Baseplate Tibial Tritanium 5536-B-600 Model/Cat number: [id number] Serial number: N/A Parachute Officer: [employer] Lot number: [id number] Device identifier: [id number] Device identifier type: GS1 As of 10/17/2021 Status: Implanted [employer] 6295-B-496-[id number] Insert Tibial Triathlon 6 H10mm Knee Bearing Condylar Stabilize Sterile - Sn/A - [id number] - Implanted (Left) Knee Inventory item: [employer] Insert Tibial Triathlon 6 H10mm Knee Bearing Condylar Stabilize Sterile 3128-D-188-E Model/Cat number: [id number] Serial number: N/A Parachute Officer: [employer] Lot number: [id number] Device identifier: [id number] Device identifier type: GS1 As of 10/17/2021 Status: Implanted Type Not Specified [employer] [facility] 6197-9-010 Simplex P Full Dose Radiopaque Preblend Cement Bone Tobramycin - [id number] - Implanted (Right) Knee Inventory item: [employer] Simplex P Full Dose Radiopaque Preblend Cement Bone [id number] Model/Cat number: [id number] Parachute Officer: [employer] [facility] Device identifier: [id number] Device identifier type: GS1 As of 09/30/2019 [...] Patient has advance directive, copy in chart Communication/Cafe Associate Needs Communication Needs: Glasses Assistive Devices/DME: Eyeglasses, Walker, Cane Hearing - Right Ear: Functional Hearing - Left Ear: Functional Discharge Planning Type of Residence: Private residence Living Arrangements: Spouse/significant other Support Systems: Spouse/significant other Assistance Needed: to be with pt DOS Patient expects to be discharged to:: 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 You should leave your valuables and any jewelry at home. No metal or piercings are allowed in the operating room. You should bring your insurance card, a photo ID (example: [employer] Observer Helper's License) and a method of payment for [...] for the most updated information. Information on [facility] & the Orth[facility] Center: Please view [email or web address] (Patient & Visitor Information) for additional details regarding Advanced Directive forms, AWARE, directions, parking information, lodging, Internet access, dining and more. For MyChart information, to activate account or password recovery, please go to [email or web address] or call [phone] (toll-free: [phone]), Sun- Sunday 8am-5pm. Information for Suicide Prevention: National Suicide Prevention Lifeline (5-949-984-YGTH (1114)). Surgery Times: For patients having surgery @ [facility] or [facility] ([facility]), if your surgeon's office has not notified you of your surgery time by NOON THE BUSINESS DAY BEFORE your surgery, please call [phone] and ask for your surgeon's office Dr. Vu ID TESTER * Pre-Procedure Instructions - Marychuy Sweet NP - 10/11/2023 10:30 AM HYBRID TESTER Center for Preoperative Assessment and Planning CPAP Clinic Location: [facility] The night before your surgery: * Do [...] going to be admitted after surgery at [facility], COVID testing may be performed on the day of surgery, even if you are up to date on your COVID-19 vaccine. * If having surgery at [facility], you may want to bring a credit card if you want to use our Mobile Pharmacy for your discharge medications. Mobile pharmacy is not available at [facility], the Orthopedic Center, or the [place] [facility]. If you have Diabetes: * You may [...] with COVID-19. You test positive for COVID-19. ID TESTER documented in this encounter Plan of Treatment Not on file documented as of this encounter Procedures Procedure Name Priority Date/Time Associated Diagnosis Comments TYPE AND SCREEN 14 DAY STAT 10/11/2023 12:18 PM HYBRID TESTER Preoperative testing EGFR Routine 10/11/2023 12:18 PM HYBRID TESTER Lumbar radiculopathy DIFFERENTIAL AUTO Routine 10/11/2023 12: 18 PM HYBRID TESTER Lumbar radiculopathy CPAP APTT ALGORITHM Routine 10/11/2023 1 2:18 PM HYBRID TESTER Preoperative testing URINALYSIS AND REFLEX TO MICROSCOPIC AND CULTURE Routine 10/11/2023 12:18 PM HYBRID TESTER Lumbar radiculopathy CBC WITH AUTO DIFFERENTIAL Routine 10/11/2023 12:18 PM HYBRID TESTER Lumbar radiculopathy VITAMIN D 25 HYDROXY Routine 10/11/2023 12:18 PM HYBRID TESTER Lumbar radiculopathy Vitamin D deficiency URINALYSIS, MICROSCOPIC ONLY Routine 10/11/2023 12:18 PM HYBRID TESTER Lumbar radiculopathy PROTIME-INR Routine 10/11/2023 12:18 PM HYBRID TESTER Lumbar radiculopathy Anticoagulation management encounter URINE CULTURE Routine 10/11/2023 12:18 PM HYBRID TESTER COMPREHENSIVE METABOLIC PANEL Routine 10/11/2023 12:18 PM HYBRID TESTER Lumbar radiculopathy POCT HEMOGLOBIN A1C Routine 10/11/2023 1 1:43 AM HYBRID TESTER documented in this encounter Results * eGFR (10/11/2023 12:18 PM HYBRID TESTER) [facility] eGFR 73 >=60 mL/min/1. 73 m2 [facility] Comment: Interpretive Data Reference [...] reviewed 2021. Blood 10/11/2023 12:1 8 PM HYBRID TESTER 10/11/2023 12:55 PM HYBRID TESTER Marcial Vu Jr., MD LAB BLOOD ORDERABLE S Final Result [facility] Department [place] [address] * (ABNORMAL) Urine culture Urine, clean voided (10/11/2023 12:18 PM HYBRID TESTER) Report Final Report: Greater than or equal to 100,000 colonies/mL of Escherichia coli Greater than or equal to 100,000 colonies/mL of Escherichia coli #2 (.) [facility] Organism ESCHERICHIA COLI [facility] Organism ESCHERICHIA COLI [facility] Urine, clean voided 10/11/2023 12:18 PM HYBRID TESTER 10/11/2023 2:33 PM HYBRID TESTER Narrative [facility] - 10/14/2023 12:44 PM HYBRID TESTER Urine culture reflexed based upon urinalysis results. Testing performed by [facility] Microbiology Laboratory ([phone]) Organism Antibiotic Method Susceptibility Escherichia coli Ampicillin [...] GENERAL ORDERABLES Final Result Performing Organization Address [facility] Co de Phone Number [facility] Department [place] [address] * (ABNORMAL) Urinalysis, microscopic only (10/11/2023 12:18 PM HYBRID TESTER) WBC, ur >50(A) 0 - 5 /HPF [facility] RBC, ur 0-2 0 - 2 /HPF [facility] Bacteria, ur 4+(A) [facility] Culture Reflex Comment Reflex to urine culture will be performed. [facility] Urine, clean voided 10/11/2023 12:18 PM HYBRID TESTER 10/11/2023 12:50 PM HYBRID TESTER Marcial Vu Jr., MD LAB URINE ORDERABLE S Final Result Performing Organization Address [facility] Co de Phone Number [facility] Department [place] [address] * (ABNORMAL) Differential, auto (10/11/2023 12:18 PM HYBRID TESTER) Neutrophil abs 12.7(H) 1.5 - 6.5 K/cumm [facility] Imm gran abs 0.3(H) 0.0 - 0.1 K/cumm [facility] Lymphocyte abs 0.8 0.8 - 3.3 K/cumm [facility] Monocyte abs 1.3(H) 0.2 - 0.8 K/cumm [facility] Eosinophil abs 0.0 0.0 - 0.5 K/cumm [facility] Basophil abs 0.0 0.0 - 0.1 K/cumm [facility] Neutrophil pct 83.8 % [facility] Comment: Interpretive Data Percent cell count reference ranges are not reported, since discordance with absolute values may lead to misinterpretation of CBC data. Current Interpretive Data was last revised on 2018. Imm gran pct 1.7 % [facility] Comment: Interpretive Data Percent cell count reference ranges are not reported, since discordance with absolute values may lead to misinterpretation of CBC data. Current Interpretive Data was last revised on 2018. Lymphocyte pct 5.5 % [facility] Comment: Interpretive Data Percent cell count reference ranges are not reported, since discordance with absolute values may lead to misinterpretation of CBC data. Current Interpretive Data was last revised on 2018. Monocyte pct 8.5 % [facility] Comment: Interpretive Data Percent cell count reference ranges are not reported, since discordance with absolute values may lead to misinterpretation of CBC data. Current Interpretive Data was last revised on 2018. Eosinophil pct 0.2 % [facility] Comment: Interpretive Data Percent cell count reference ranges are not reported, since discordance with absolute values may lead to misinterpretation of CBC data. Current Interpretive Data was last revised on 2018. Basophil pct 0.3 % [facility] Comment: Interpretive Data Percent cell count reference ranges are not reported, since discordance with absolute values may lead to misinterpretation of CBC data. Current Interpretive Data was last revised on 2018. Blood 10/11/2023 12:1 8 PM HYBRID TESTER 10/11/2023 12:55 PM HYBRID TESTER us Marcial Vu Jr., MD LAB BLOOD ORDERABLE S Final Result [facility] Department [place] [address] * (ABNORMAL) CBC with auto differential (10/11/2023 12:18 PM HYBRID TESTER) [facility] WBC 15.2(H) 3.8 - 9.9 K/cumm [facility] Hgb 14.9 13.0 - 17.5 g/dL [facility] Comment: Interpretive Data A reference range for this assay has not been established for patients with an unknown legal sex. Please refer to the laboratory test catalog for established sex-specific reference intervals. Current interpretive data was last revised on 2023. Hct 42.6 38.9 - 50.3 % [facility] Comment: Interpretive Data A reference range for this assay has not been established for patients with an unknown legal sex. Please refer to the laboratory test catalog for established sex-specific reference intervals. Current interpretive data was last revised on 2023. Plt 148(L) 150 - 400 K/cumm [facility] MPV 11.5 9.1 - 12.3 fL [facility] RBC 4.53 4.30 - 5.80 M/cumm [facility] Comment: Interpretive Data A reference range for this assay has not been established for patients with an unknown legal sex. Please refer to the laboratory test catalog for established sex-specific reference intervals. Current interpretive data was last revised on 2023. MCV 94.0 81.3 - 96.4 fL [facility] MCH 32.9 27.1 - 33.3 pg [facility] MCHC 35.0 32.3 - 35.7 g/dL [facility] RDW CV 12.4 11.1 - 14.9 % [facility] RDW SD 43.0 35.7 - 48.1 fL [facility] NRBC abs 0.00 0.00 - 0.01 K/cumm [facility] Blood 10/11/2023 12:1 8 PM HYBRID TESTER 10/11/2023 12:55 PM HYBRID TESTER us Marcial Vu Jr., MD LAB BLOOD ORDERABLE S Final Result [facility] Department [place] [address] * (ABNORMAL) Vitamin D 25 hydroxy (10/11/2023 12:18 PM HYBRID TESTER) Pathologist [facility] Vitamin D 25-OH 96(H) 30 - 80 ng/mL [facility] Blood 10/11/2023 12:1 8 PM HYBRID TESTER 10/11/2023 12:55 PM HYBRID TESTER Marcial Vu Jr., MD LAB BLOOD ORDERABLE S Final Result Performing Organization Address [facility] de Phone Number [facility] Department [place] [address] * Protime-INR (10/11/2023 12:18 PM HYBRID TESTER) [facility] PT 12.6 10.3 - 13.7 sec [facility] INR 1.11 0.90 - 1.20 [facility] Comment: Interpretive data Oral anticoagulant therapeutic ranges: Venous thromboembolism prophylaxis or treatment: 2.0-3.0 CARDIOLOGY Standard range: 2.0-3.0 High-intensity range: 2.5-3.5 Refer to indication-specific guidelines for appropriate target ranges for prosthetic heart valve replacement. Current interpretive data was last revised on 2019. Blood 10/11/2023 12:1 8 PM HYBRID TESTER 10/11/2023 12:55 PM HYBRID TESTER Marcial Vu Jr., MD LAB BLOOD ORDERABLE S Final Result Performing Organization Address [facility] de Phone Number [facility] Department [place] [address] * (ABNORMAL) Urinalysis reflex to microscopic and culture Urine, clean voided (10/11/2023 12:18 PM HYBRID TESTER) Pathologist [facility] Color, ur Ling Yellow [facility] Clarity, ur Turbid(A) Clear [facility] Specific gravity, ur 1.020 1.003 - 1.030 [facility] pH, urine 6.0 [facility] Comment: Interpretive Data ? Urine pH is affected by diet, medications, systemic acid-base disturbances, and renal tubular function. ??pH may affect urinary stone formation. ??For example, urine pH below 6.0 may help reduce the tendency for calcium phosphate stones and pH greater than 6.0 may reduce the tendency for uric acid stone formation. Source: [facility] Current Interpretive Data was last revised on 2017 Protein, ur ql 3+(A) Negative [facility] Glucose, ur ql Negative Negative [facility] Ketones, ur 1+(A) Negative [facility] Bilirubin, ur Negative Negative [facility] Blood, ur 2+(A) Negative [facility] Urobilinogen, ur 2.0(A) <2.0 mg/dL [facility] Nitrite, ur Negative Negative [facility] Leukocyte esterase, ur 3+(A) Negative [facility] UA reflex comment Reflex to microscopic UA will be performed. [facility] Urine, clean voided 10/11/2023 12:18 PM HYBRID TESTER 10/11/2023 12:50 PM HYBRID TESTER Marcial Vu Jr., MD LAB MICROBIOLOGY - GENERAL ORDERABLES Final Result [facility] Department [place] [address] * (ABNORMAL) Comprehensive metabolic panel (10/11/2023 12:18 PM HYBRID TESTER) Sodium 132(L) 135 - 145 mmol/L [facility] Potassium, pl 3.3 3.3 - 4.9 mmol/L [facility] Chloride 94(L) 97 - 110 mmol/L [facility] CO2 26 22 - 32 mmol/L [facility] Anion gap 12 2 - 15 mmol/L [facility] BUN 23 6 - 25 mg/dL [facility] Creatinine 1.08 0.80 - 1.30 mg/dL [facility] Glucose 138 70 - 199 mg/dL [facility] Comment: Interpretive Data Fasting glucose [...] 2022. Calcium 9.4 8.5 - 10.3 mg/dL [facility] Bilirubin, total 1.1 0.1 - 1.2 mg/dL [facility] Protein, pl 7.6 6.5 - 8.5 g/dL [facility] Albumin 4.1 3.5 - 5.0 g/dL [facility] Alk phos 120 40 - 130 Units/L [facility] ALT 20 7 - 55 Units/L [facility] AST 24 10 - 50 Units/L [facility] Blood 10/11/2023 12:1 8 PM HYBRID TESTER 10/11/2023 12:55 PM HYBRID TESTER us Marcial Vu Jr., MD LAB BLOOD ORDERABLE S Final Result Performing Organization Address City/[facility]/ZIP Co de Phone Number [facility] Department [place] [address] * CPAP aPTT algorithm (10/11/2023 12:18 PM HYBRID TESTER) aPTT 33 28 - 38 sec [facility] Comment: Interpretive Data Heparin therapeutic range: 66.0 - 100.0 seconds. Range based on correlation with therapeutic heparin activity range of 0.3 - 0.7 Units/mL. Current interpretive data was last revised on 2023. Blood 10/11/2023 12:1 8 PM HYBRID TESTER 10/11/2023 12:18 PM HYBRID TESTER us Marychuy Sweet NP LAB BLOOD ORDERABLES Final Result Performing Organization Address City/[facility]/ZIP Co de Phone Number [facility] [place] [address] * TYPE AND SCREEN 14 DAY (10/11/2023 12:18 PM HYBRID TESTER) Jigna, indirect Negative ABO Rh O Positive [facility] Blood 10/11/2023 12:1 8 PM HYBRID TESTER 10/11/2023 12:59 PM HYBRID TESTER Narrative [facility] - 10/11/2023 1:59 PM HYBRID TESTER Has the patient had Daratumumab or Isatuximab in the past 6 months?->No Is this test being ordered in advance for a procedure?->Yes Expected date of procedure:->10/16/23 Has the patient been transfused in the past 3 months?->No Marychuy Sweet NP LAB BLOOD BANK TEST ORDERA BLES Final Result Performing Organization Address [facility] [place] [address] * POCT hemoglobin A1c (10/11/2023 11:43 AM HYBRID TESTER) Hgb A1C, POC 5.5 4.0 - 5.6 % [facility] Est Average Gluc POC 111 mg/dL [facility] Comment: The ADA recommends reporting an estimated Average Glucose (eAG) with all Hemoglobin A1c results using the equation derived from a study of 507 normal and diabetic adults. ??Minority populations were underrepresented and children were not included. ?? (Diabetes Care 31:8022-0581, 2008). ??The eAG is not equivalent to a fasting glucose. Blood 10/11/2023 11:4 3 AM HYBRID TESTER 10/11/2023 11:43 AM HYBRID TESTER Marcial Vu Jr., MD POINT OF CARE TEST ORDERABLES Final Result Performing Organization Address [facility] [place] [address] documented in this encounter Visit Diagnoses Diagnosis [...] needed for allergies Therapy completed 10/11/2023 peg 241-dicunrtremqr-wupwtx in 1-0.36-0.2 % dropsIndications:Dry Eye Administer 1 [...] 10/30/2023 added in this encounter Care Teams Statistics Intern Relationship Specialty Start Date End Date Rl Medina DO [address] [place] [address] PCP - General 08/09/17 05/25/24 documented as of this encounter
--- OUTSIDE RECORDS SUMMARY | 2024-11-05 23:05 | XMS_ITS | Encounter Summary ---
Author Organization [facility] Healthcare Address [address] [place] [address] Care Team Providers Care Control Room Tender Name Role Phone Rl Medina DO Primary Care Provider [phone] Reason for Visit * Auth/Cert Specialty Diagnoses / Procedures Referred By Contac t Referred To Contact Diagnoses Gross hematuria Lesion of bladder Gross hematuria [R31.0] Lesion of bladder [N32.9] Procedures ME CYSTOURETHROSCOPY WITH BIOPSY BIOPSY - BLADDER CYSTOSCOPY Referral ID Status Reason Start Date Expiration Date Visits Re quested Visits Authorized [id number] 1 1 Encounter Details Date Type Department Care Team (Latest Contact Info) Description 11/13/2022 7:02 AM MANAGER CONSUMER INSIGHTS - 11/13/2022 9:28 AM MANAGER CONSUMER INSIGHTS Hospital Encounter [facility] Operating Room [address] [place] [address] Ashley Mcmillan MD [address] [facility] [place] [address] Gross hematuria; Lesion of bladder Discharge Disposition: [...] file Legal Sex Male 9:07 PM MANAGER CONSUMER INSIGHTS Gender Identity Not on file Sexual Orientation Not on file documented as of this encounter Last Filed Vital Signs Vital Sign Reading Time Taken Comments Blood Pressure 114/56 11/13/2022 9:20 AM MANAGER CONSUMER INSIGHTS Pulse 51 11/13/2022 9:25 AM MANAGER CONSUMER INSIGHTS Temperature 35.9 ??C (96.6 ??F) 11/13/2022 9:25 AM CS T Respiratory Rate 20 11/13/2022 9:25 AM MANAGER CONSUMER INSIGHTS Oxygen Saturation 100% 11/13/2022 9:25 AM MANAGER CONSUMER INSIGHTS Inhaled Oxygen Concentration - - Weight 83.9 kg (185 lb) 10/25/2022 9:05 AM MANAGER CONSUMER INSIGHTS Height 172.7 cm (5' 8 ) 10/25/2022 9:05 AM MANAGER CONSUMER INSIGHTS Body Mass Index 28.13 10/25/2022 9:05 AM MANAGER CONSUMER INSIGHTS documented in this encounter Discharge Instructions * Discharge Instructions* Tangela Tolliver RN - 11/13/2022 8:09 AM MANAGER CONSUMER INSIGHTS Discharge Instructions: Surgery performed: Cystoscopy, bladder biopsy New medications: - Phenazopyridine as needed for pain with urination. This medication may cause your urine to turn orange or dark red in color. - Acetaminophen and ibuprofen as needed for pain, available zinm-omq-hvxawmd; take this scheduled for the next 72 hours, then afterwards as needed - Docusate/miralax as needed for constipation, available gliw-gdn-igpowod. Constipation is common after anesthesia - Macrobid, [...] AM to 5:00 PM: call Dr. Mcmillan's vector control assistant Linda at [phone] and askfor a member of your doctor's team. For urgent matters after 5:00 PM during the week or on weekendsor holidays, call [phone] and ask to have the Urology Servicing Rep Physician paged for you. You have received anesthesia, therefore, for the next 24 hours and/or while taking narcotic pain medication; -Do NOT drive a vehicle -Do NOT drink alcohol -Do NOT make important personal or business decisions or sign legal documents. Examples of narcotic pain medication include Percocet, Oxycontin, [place], Hydrocodone, and Oxycodone. FAQs (frequently asked questions) [...] physical therapy, we are available to assist: [facility] STAR: [facility] [phone] Stem [phone] [facility] [phone] How are some things that you can [...] given by your doctor or other health healthcare administration internship. GER CONSUMER INSIGHTS GER CONSUMER INSIGHTS * Attachments The following attachments cannot be sent through Care Everywhere. * General Anesthesia (Discharge Care) (Peruvian) * Cystoscopy (Discharge Care) (Peruvian) documented in this encounter Medications at Time [...] mellitus 0.5 mg Sunday09/21/2022 09/13/20 23 peg 346-lepdycypttqc-a lycerin 1-0.36-0.2 % dropsIndications:D ry Eye Administer [...] for : Procedure(s): BIOPSY - BLADDER CYSTOSCOPY GER CONSUMER INSIGHTS Source Note - Ed Whitman MD - 11/02/2022 8:01 AM MANAGER CONSUMER INSIGHTS Images from the original note were not included. [facility] for Preoperative Assessment and Planning Preoperative Evaluation Record Evaluation type/location: TPAP from [facility] Planned procedure site: [facility] OR Date: 11/02/22 [...] BP - 85 Pertinent negatives: CAD ; TN ; CABG ; valvular heart disease; valve [...] provided by telephone and electronically sent via [employer]. Patient verbalized understanding of preoperative plan. Blood [...] -- 09/21/22 -- Fidelia Perdue MD peg 617-hrhoqzhpdxxg-jwbvfqjj 1-0.36-0.2 % drops -- 10/06/19 -- Fidelia [...] mg/1.5 mL) pen injector injection ??? peg 345-daxoteouoveb-tzhdploe 1-0.36-0.2 % drops ??? polyethylene glycol (MIRALAX) [...] Medication protocol when under care of a STAVE LOG RIPSAW OPERATOR Planned anesthesia: General Informed Consent: Anesthesia [...] and agree to proceed. All questions answered. GER CONSUMER INSIGHTS GER CONSUMER INSIGHTS documented in this encounter Miscellaneous Notes * [...] draped in usual sterile fashion. A 21 Greek Cystoscope with a 30 degree lens was [...] 8:18 AM No Resident involved on case GER CONSUMER INSIGHTS GER CONSUMER INSIGHTS * Perioperative Nursing Note - Em Patrick RN - 10/25/2022 9:19 AM MANAGER CONSUMER INSIGHTS [facility] for Preoperative Assessment and Planning Perioperative Nursing Note Telephone Preoperative Evaluation ([facility]) - TELEPHONE ONLY, NO PHYSICAL [...] pen injector injection 0.5 mg Sunday peg 348-qthpvlqcfswf-zlxennvr 1-0.36-0.2 % drops Administer 1 drop into both eyes once daily as needed polyethylene glycol (MIRALAX) 17 gram/dose powder Take 17 g by mouth daily as needed sildenafil, antihypertensive, (REVATIO) 20 mg tablet Take 20 mg by mouth as needed Implants Bone Cement [employer] 6197-9-010 Simplex P Full Dose Radiopaque Preblend Cement Bone Tobramycin - S0- [id number] - Implanted (Right) Knee Inventory item: [employer] Simplex P Full Dose Radiopaque Preblend Cement Bone Euxlrbuenu6994-8-710 Model/Cat number: [id number] Serial number: 0 Public Address Technician: [employer] Lot number: [id number] Device identifier: [id number] Device identifier type: GS1 As of 09/30/2019 Status: Implanted Other - see comments [employer] [id number] Kandace II 15mm Constrain Knee 5-6 Insert Articular Uhmwpe- S0 - [id number] - Implanted (Right) Knee Inventory item: [employer] Kandace Ii 15mm Constrain Knee 5-6 Insert ArticularUhmwpe [id number] Model/Cat number: [id number] Serial number: 0 Public Address Technician: [employer] Lot number: [id number] As of 09/30/2019 Status: Implanted [employer] [id number] Legion 10mm Screw Knee 6 Wedge Femoral - S0 - [id number] -Implanted (Right) Knee Inventory item: [employer] Legion 10mm Screw Knee 6 Wedge Femoral [id number] Model/Cat number: [id number] Serial number: 0 Public Address Technician: [employer] Device identifier: [id number] Device identifier type: [facility] As of 09/30/2019 Status: Implanted [employer] [id number] Legion Constrain Knee Right 6 Component Femoral Oxinium - S0 - [id number] - Implanted (Right) Knee Inventory item: [employer] Legion Constrain Knee Right 6 Component Femoral Ox[employer] [id number] Model/Cat number: [id number] Serial number: 0 Public Address Technician: [employer] Lot number: [id number] As of 09/30/2019 Status: Implanted [employer] [id number] Legion 5mm Alcon Step Knee Right Medial Left Lateral 5-6 Wedge - S0 - [id number] - Implanted (Right) Knee Inventory item: [employer] Legion 5mm Alcon Step Knee Right Medial Left Lateral5-6 Wedge [id number] Model/Cat number: [id number] Serial number: 0 Public Address Technician: [employer] Device identifier: [id number] Device identifier type: [facility] As of 09/30/2019 Status: Implanted [employer] [id number] Legion 15mm 160mm Press Fit Knee Stem Femoral - S0 - [id number] - Implanted (Right) Knee Inventory item: [employer] Legion 15mm 160mm Press Fit Knee Stem Femoral [id number] Model/Cat number: [id number] Serial number: 0 Public Address Technician: [employer] Lot number: [id number] As of 09/30/2019 Status: Implanted [employer] [id number] Legion 10mm Screw Knee 6 Wedge Femoral - S0 - [id number] -Implanted (Right) Knee Inventory item: [employer] Legion 10mm Screw Knee 6 Wedge Femoral [id number] Model/Cat number: [id number] Serial number: 0 Public Address Technician: [employer] Lot number: [id number] As of 09/30/2019 Status: Implanted [employer] [id number] Legion Revision Knee Right 5 Baseplate Tibial - S0 - [id number] - Implanted (Right) Knee Inventory item: [employer] Legion Revision Knee Right 5 Baseplate Tibial [id number] Model/Cat number: [id number] Serial number: 0 Public Address Technician: [employer] Lot number: [id number] Device identifier: [id number] Device identifier type: GS1 As of 09/30/2019 Status: Implanted [employer] [id number] Legion 15mm 160mm Press Fit Knee Stem Femoral - S0 - [id number] - Implanted (Right) Knee Inventory item: [employer] Legion 15mm 160mm Press Fit Knee Stem Femoral [id number] Model/Cat number: [id number] Serial number: 0 Public Address Technician: [employer] Lot number: [id number] Device identifier: [id number] Device identifier type: GS1 As of 09/30/2019 Status: Implanted [employer] 5517-F-501 Triathlon Cruciate Retain Bead Knee Left 5 Component Femoral Pa - Sn/A - [id number] - Implanted (Left) Knee Inventory item: [employer] Triathlon Cruciate Retain Bead Knee Left 5 Component Femoral Pa 5517-F-501 Model/Cat number: [id number] Serial number: N/A Public Address Technician: [employer] Lot number: [id number] Device identifier: [id number] Device identifier type: GS1 As of 10/17/2021 Status: Implanted [employer] 5536-B-600 Triathlon Knee 6 Baseplate Tibial Tritanium - Sn/A - [id number] - Implanted (Left) Knee Inventory item: [employer] Triathlon Knee 6 Baseplate Tibial Tritanium 5536-B-600 Model/Cat number: [id number] Serial number: N/A Public Address Technician: [employer] Lot number: [id number] Device identifier: [id number] Device identifier type: GS1 As of 10/17/2021 Status: Implanted [employer] 7833-G-867-E Insert Tibial Triathlon 6 H10mm Knee Bearing Condylar Stabilize Sterile - Sn/A - [id number] - Implanted (Left) Knee Inventory item: [employer] Insert Tibial Triathlon 6 H10mm Knee Bearing Condylar Stabilize Sterile 2693-M-446-E Model/Cat number: [id number] Serial number: N/A Public Address Technician: [employer] Lot number: [id number] Device identifier: [id number] Device identifier type: GS1 As of 10/17/2021 Status: Implanted Type Not Specified [employer] 6197-9-010 Simplex P Full Dose Radiopaque Preblend Cement Bone Tobramycin - [id number] - Implanted (Right) Knee Inventory item: [employer] Simplex P Full Dose Radiopaque Preblend Cement Bone Hnoqmipukc9396-0-589 Model/Cat number: [id number] Public Address Technician: [employer] Device identifier: [id number] Device identifier type: GS1 As of 09/30/2019 [...] Systems: Spouse/significant other Assistance Needed: Spouse/ Cyda/ Market News Reporter and helper Patient expects to be discharged to:: Private residence [employer] NO ADDITIONAL COMMENTS/ FOLLOW UP GER CONSUMER INSIGHTS * Pre-Procedure Instructions - Em Patrick RN - 10/25/2022 9:11 AM MANAGER CONSUMER INSIGHTS [facility] (CPAP) [...] your insurance card, a photo ID (example: Market News Reporter's License) and a method of payment for [...] Chart. If you are having surgery at [facility], please arrive on the day [...] Pathway to Excellent Care by the followinglink: [email or web address] How To Prepare Your Skin [...] questions, please call the CPAP Staff at [phone], Sunday-Sunday 8am-4:30pm. All patients should read the below section: All visitors/patients are being asked to wear a clean face mask when entering the hospital. COVID 19 Updates & Visitor Policy: Please access [email or web address] for the most updated information. Information on [facility]: Please view [email or web address] (Patient & Visitor Information) for additional details regarding Advanced Directive forms, AWARE, directions, parking information, lodging, Internet access, dining and more. Information on [facility] or [facility] ([facility]): Please view [email or web address] (Patient and Visitor Information) for parking/directions and more. For MyChart information, to activate account or password recovery, please go to [email or web address] or call [phone] (toll-free: [phone]). Information for Suicide Prevention: National Suicide Prevention Lifeline (7-864- 466-NLGA (4446)). Surgery Times: For patients having surgery @ [facility], [facility] or [facility] [place] ([facility]), if your surgeon's office has not notified you of your surgery time by NOON THE BUSINESS DAY BEFORE your surgery, please call [phone] and ask for your surgeon's office Dr. Ashley Mcmillan . GER CONSUMER INSIGHTS documented in this encounter Plan of Treatment Not on file documented as of this encounter Procedures Procedure Name Priority Date/Time Associated Diagnosis Comments SURGICAL PATHOLOGY Routine 11/13/2022 8: 28 AM MANAGER CONSUMER INSIGHTS Gross hematuria Lesion of bladder CYSTOSCOPY 11/13/2022 8:14 AM MANAGER CONSUMER INSIGHTS Gross hematuria Lesion of bladder BIOPSY - BLADDER 11/13/2022 8:14 AM MANAGER CONSUMER INSIGHTS Gross hematuria Lesion of bladder POCT GLUCOSE DEVICE Routine 11/13/2022 7 :44 AM MANAGER CONSUMER INSIGHTS documented in this encounter Results * Surgical pathology (11/13/2022 8:28 AM MANAGER CONSUMER INSIGHTS) Tissue (Bladder, biopsy) 11/13/2022 8:28 AM MANAGER CONSUMER INSIGHTS Narrative PATHOLOGY [facility] - 11/15/2022 1:07 PM MANAGER CONSUMER INSIGHTS EPIC results best viewed via link to PDF [facility] Jessenia Mckee [facility] of Surgical Pathology [address] [facility], [place] [address] Note to Patients: This report may contain [...] Gender: ??M : ??1950 (Age: 72) Address: ??[address] ??[address] Hospital #: ??[id number] Taken:11/13/2022 Received:11/13/2022 Reported: 11/15/2022 Patient Type: [facility] [...] interpretation for this case was performed at [facility], Department of Surgical Pathology, [address] [facility] [address], [id number], ??[place], [place] ??[address] ?? CLIA # [id number] Linda Gallardo M.D., PhD History: The patient [...] Surgical Pathology and Flow Cytometry Departments at [facility] as part of an ongoing associate quality engineer program and in compliance with federally mandated [...] Surgical Pathology and Flow Cytometry Departments of [facility]. ??It has not been cleared or approved by the U. S. Food and Drug Administration. IMAGES AND SCANNED DOCUMENTS, IF INCLUDED, ONLY VIEWABLE IN PDF VERSION OF REPORT Ashley Mcmillan MD LAB PATHOLOGY ORDERABLES Final Result Performing Organization Address City/[facility] Co de Phone Number PATHOLOGY [facility] [phone] * POCT glucose (11/13/2022 7:44 AM MANAGER CONSUMER INSIGHTS) Glucose, POC 90 70 - 199 mg/dL LAURA ESPINOZA Comment: Interpretive Data Glucose is assumed to be non-fasting. Fasting Glucose reference ranges are: 0 - 150 years: ??70 mg/dL - 99 mg/dL Current interpretive data was last revised on 2014. POC Performer [id number] [facility] POC Device Number [id number] [facility] Blood 11/13/2022 7:44 AM MANAGER CONSUMER INSIGHTS 11/13/2022 7:44 AM MANAGER CONSUMER INSIGHTS [facility] Osmin Mcmillan MD LAB POCT ORDERABLES - DE VICE Final Result Performing Organization Address [facility] de Phone Number [facility] [address] [facility] Department [place] [address] documented in this encounter Visit Diagnoses Diagnosis [...] AnalgesiaIndications:Pre- Emptive Analgesia Given 11/13/2022 7:42 AM MANAGER CONSUMER INSIGHTS 1,000 mg Lactated Ringer's (LR) infusion 30 mL/hr, intravenous, Continuous, Starting on Sun11/13/22 at 0800, For 4 hours, Pre-Op, Use a 500 ml bag for End Stage Renal Disease Patients. Discontinue if fluid still running once patient arrives to floor. Rate/Dose Change 11/13/2022 8:22 AM MANAGER CONSUMER INSIGHTS 30 mL/hr Rate/Dose Verify 11/13/2022 8:14 AM MANAGER CONSUMER INSIGHTS 30 mL/h r New Bag 11/13/2022 7:42 AM MANAGER CONSUMER INSIGHTS 30 mL/hr 30 mL/hr documented in this encounter Discontinued Medications Medication Sig Discontinue Reason Start Date End Da te aspirin 81 mg enteric coated tabletIndications:preven tion of thrombosis Take 1 tablet (81 mg total) by mouth 2 (two) times a day Error 10/18/2021 10/25/2022 documented as of this encounter Active and Recently Administered Medications Times are shown in MANAGER CONSUMER INSIGHTS. Scheduled Medication Order 11/11/2022 11/12/2022 11/13/2022 acetaminophen [...] 11/13/2022 documented in this encounter Care Teams Control Room Tender Relationship Specialty Start Date End Date Rl Medina DO [address] [place] [address] PCP - General 08/09/17 05/25/24 documented as of this encounter
--- OUTSIDE RECORDS SUMMARY | 2024-11-05 23:05 | XMS_ITS | Encounter Summary ---
Author Organization [facility] Address [address] [place] [address] Phone Care Team Providers Care Optical Engineering Technician Name Role Phone Rl Medina DO Primary Care Provider Reason for Visit * Reason Comments consult for BOTOX * Consultation (Routine) - Closed Specialty Diagnoses / Procedures Referred By Manisha gale Referred To Contact Urology Diagnoses Bladder neck obstruction Rl Medina DO [address] [place] [address] Phone: tel: fax: [facility] (All Locations) Referral ID Status Reason Start Date Expiration Date V isits Requested Visits Authorized [id number] Closed Specialty Services Required 10/10/2022 11/09/2023 99 99 Encounter Details Date Type Department Care Team (Late st Contact Info) Description 03/15/2023 10:40 AM CDT Office Visit [facility] Urology [address] [place] [address] Pan Irene MD [address] [facility] [address] [place] [address] Overactive bladder (Primary Dx); Prostate [...] on file Legal Sex Male 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 José Miguel Irene MD therapist respiratory (Urology) Division of Urologic Surgery [facility] Office [phone] 03/15/2023 10:26 AM Note: This note was [...] growth based on current clinical standards) [facility] Organism (CLINICALLY INSIGNIFICANT GROWTH [facility] Urine, clean voided 03/15/2023 2:53 PM CDT 03/15/2023 3:53 PM CDT Narrative LAURA ZARAGOZA - 03/16/2023 6:38 PM CDT Testing performed by [facility] Microbiology Laboratory ([phone]) Pan Irene MD LAB MICROBIOLOGY - GENERAL ORD ERABLES Final Result [facility]UR[facility] Department of [place] [address] * (ABNORMAL) POCT urinalysis dipstick (03/15/2023 10:10 [...] urine documented in this encounter Care Teams Optical Engineering Technician Relationship Specialty Start Date End Date Rl Medina DO [address] [place] [address] PCP - General 08/09/17 05/25/24 documented as of this encounter
--- OUTSIDE RECORDS SUMMARY | 2024-11-05 23:05 | XMS_ITS | Encounter Summary ---
Author Organization [facility] Healthcare Address [address] [place] [address] Care Team Providers Care Tobacco Roller Name Role Phone Rl Medina DO Primary Care Provider Reason for Referral * Diagnostic Imaging (Routine) - Closed Specialty Diagnoses / Procedures Referred By Contac t Referred To Contact Diagnoses Status post left knee replacement Procedures XR Knee Left 4 [place] [address] [place] [address] [address] [place] [address] Phone: tel: fax: [facility] [address] [place] [phone] Phone: tel: Referral ID Status Reason Start Date Expiration Date Visits Re quested Visits Authorized [id number] Closed 10/10/2022 11/09/2023 1 1 LATOR HELPER Reason for Visit * Diagnostic Imaging (Routine) - Closed Specialty Diagnoses / Procedures Referred By Contac t Referred To Contact Diagnoses Status post left knee replacement Procedures XR Knee Left 4 [place] [address] [place] [address] [address] [place] [address] Phone: tel: fax: [facility] [address] [place] [phone] Phone: tel: Referral ID Status Reason Start Date Expiration Date Visits Re quested Visits Authorized [id number] Closed 10/10/2022 11/09/2023 1 1 Encounter Details Date Type Department Care Team (Latest Contact Info) Description 10/17/2022 11:19 AM INSULATOR HELPER - 10/17/2022 11:59 PM INSULATOR HELPER Hospital Encounter [id number] [address] [facility] [address] [place] [phone] [...] on file Legal Sex Male 9:07 PM INSULATOR HELPER Gender Identity Not on file Sexual [...] mellitus 0.5 mg Sunday09/21/2022 09/13/20 23 peg 426-kfjtvsipjxis-x lycerin 1-0.36-0.2 % dropsIndications:D ry Eye Administer [...] Read Routine (OP Routine) 10/17/2022 11:59 AM INSULATOR HELPER Status post left knee replacement documented in this encounter Results * XR Knee Left 4 or More Views (10/17/2022 11:59 AM INSULATOR HELPER) Anatomical Region Laterality Modality Lower Extremities, Knee Left Computed Radiography 10/17/2022 1:13 PM INSULATOR HELPER Impressions 10/17/2022 1:13 PM INSULATOR HELPER Unchanged 2 component left knee arthroplasty in near-anatomic alignment. Electronically signed by: Timbo Wilcox MD [facility] 10/17/2022 1:13 PM INSULATOR HELPER EXAMINATION: XR KNEE LEFT 4 OR MORE [...] replacement documented in this encounter Care Teams Tobacco Roller Relationship Specialty Start Date End Date Rl Medina DO [address] [place] [address] PCP - General 08/09/17 05/25/24 documented as of this encounter
--- OUTSIDE RECORDS SUMMARY | 2024-11-05 23:05 | XMS_ITS | Encounter Summary ---
Author Organization [facility] Healthcare Address [address] [place] [address] Care Team Providers Care Merchant Police Name Role Phone Rl Medina DO Primary Care Provider Reason for Visit * Auth/Cert Specialty Diagnoses / Procedures Referred By Contac t Referred To Contact Diagnoses Gross hematuria Lesion of bladder Gross hematuria [R31.0] Lesion of bladder [N32.9] Procedures ID CYSTOURETHROSCOPY WITH BIOPSY BIOPSY - BLADDER CYSTOSCOPY Referral ID Status Reason Start Date Expiration Date Visits Re quested Visits Authorized [id number] 1 1 Encounter Details Date Type Department Care Team (Late st Contact Info) Description 11/13/2022 8:14 AM FORMING ROLL OPERATOR HEAVY DUTY Anesthesia Event [facility] Operating Room [address] [place] [address] [place] [address] [place] [address] Marie Jerry NP [address] [facility] [id number] [place] [address] Anesthesia Record Procedure Summary Procedure Name Responsible [...] on file Legal Sex Male 9:07 PM FORMING ROLL OPERATOR HEAVY DUTY Gender Identity Not on file Sexual Orientation Not on file documented as of this encounter OR Notes * Anesthesia Postprocedure Evaluation - Ed Whitman MD - 11/13/2022 9:50 AM CST Patient: Hira Evans Procedure Summary Date: 11/13/22 Room / Location: [facility] OPERATING ROOM 04 / [facility]PERATING [facility] Anesthesia Start: 813 Anesthesia [...] Nausea/Vomiting status: none No notable events documented. ING ROLL OPERATOR HEAVY DUTY * Anesthesia Procedure Notes - Sj Mullen CRNA - 11/13/2022 8:22 AM CSTAssociated Order(s): Airway Airway Patient location: OR Urgency: elective Indications for airway management: anesthesia Difficult airway: no Staff: Placed by: ORAL SURGERY PHYSICIAN: Sj Mullen CRNA Emergent airway documentation: Risks and benefits discussed: yes Consent obtained: yes Consent given by: patient Airway prep: Preoxygenated: yes Mask difficulty assessment: 1 - vent by mask Spontaneous ventilation during airway: absent Sedation level during airway: GA Final airway details: Final airway type: supraglottic airway Final supraglottic airway: classic SGA size: 4 Number of attempts: 1 ING ROLL OPERATOR HEAVY DUTY * Anesthesia Preprocedure Evaluation - Ed Whitman MD - 11/02/2022 8:01 AM CST Images from the original note were not included. Center for Preoperative Assessment and Planning Preoperative Evaluation Record Evaluation type/location: TPAP from [facility] Planned procedure site: [facility] OR Date: 11/02/22 NOTE: This note [...] BP - 85 Pertinent negatives: CAD ; IA ; CABG ; valvular heart disease; valve [...] provided by telephone and electronically sent via Resultly. Patient verbalized understanding of preoperative plan. Blood [...] -- 09/21/22 -- Fidelia Perdue MD peg 590-xevqrhhyvdnp-jlcclxqb 1-0.36-0.2 % drops -- 10/06/19 -- Fidelia [...] mg/1.5 mL) pen injector injection ??? peg 917-bogfiwiwjjjn-wssdvynq 1-0.36-0.2 % drops ??? polyethylene glycol (MIRALAX) [...] Medication protocol when under care of a ORAL SURGERY PHYSICIAN Planned anesthesia: General Informed Consent: Anesthesia plan and risks discussed with patient. Consent and Attending signature: I and/or my designee have discussed the anesthesia plan, benefits, possible alternatives, parental presence at time of induction (if indicated), and clinically relevant risks that may include dental injury, unintentional awareness, and/or other complications. The patient and/or parent/legal guardian understand, and agree to proceed. All questions answered. ING ROLL OPERATOR HEAVY DUTY ING ROLL OPERATOR HEAVY DUTY documented in this encounter Plan of Treatment Not on file documented as of this encounter Procedures Procedure Name Priority Date/Time Associated Diagnosis Comments ID AN PROCEDURE PLACEHOLDER Routine 11/13/2022 8:22 AM FORMING ROLL OPERATOR HEAVY DUTY ID AN ELECTIVE SUPRAGLOTTIC AIRWAY Routine 11/13/2022 8:22 AM FORMING ROLL OPERATOR HEAVY DUTY documented in this encounter Results * ID AN ELECTIVE SUPRAGLOTTIC AIRWAY, ID AN PROCEDURE PLACEHOLDER (11/13/2022 8:22 AM FORMING ROLL OPERATOR HEAVY DUTY) Narrative Sj Mullen CRNA - 11/13/2022 8:22 AM FORMING ROLL OPERATOR HEAVY DUTY Sj Mullen CRNA ? 11/13/2022 ??8:22 AM Airway Patient location: OR Urgency: elective Indications for airway management: anesthesia Difficult airway: no Staff: Placed by: ORAL SURGERY PHYSICIAN: Sj Mullen CRNA Emergent airway documentation: Risks [...] Prophylaxis, SurgicalIndications:Prophylaxis, Surgical Given 11/13/2022 8:22 AM FORMING ROLL OPERATOR HEAVY DUTY 2,000 mg fentaNYL (SUBLIMAZE) preservative free injection intravenous, As needed, Starting on Sun11/13/22 at 0819, Anesthesia Intra-op Given 11/13/2022 8:23 AM FORMING ROLL OPERATOR HEAVY DUTY 50 mcg Given 11/13/2022 8:19 AM FORMING ROLL OPERATOR HEAVY DUTY 50 mcg Lactated Ringer's (LR) infusion 30 mL/hr, intravenous, Continuous, Starting on Sun11/13/22 at 0800, For 4 hours, Pre-Op, Use a 500 ml bag for End Stage Renal Disease Patients. Discontinue if fluid still running once patient arrives to floor. Rate/Dose Change 11/13/2022 8:22 AM FORMING ROLL OPERATOR HEAVY DUTY 30 mL/hr Rate/Dose Verify 11/13/2022 8:14 AM FORMING ROLL OPERATOR HEAVY DUTY 30 mL/h r New Bag 11/13/2022 7:42 AM FORMING ROLL OPERATOR HEAVY DUTY 30 mL/hr 30 mL/hr lidocaine (XYLOCAINE) 10 mg/mL (1 %) injection caudal block, As needed, Starting on Sun11/13/22 at 0819, Anesthesia Intra-op, Indications: Administration of Local AnesthesiaIndications:Administration of Local Anesthesia Given 11/13/2022 8:19 AM FORMING ROLL OPERATOR HEAVY DUTY 50 mg midazolam (VERSED) 1 mg/mL injection intravenous, As needed, Starting on Sun11/13/22 at 0811, Anesthesia Intra-op Given 11/13/2022 8:11 AM FORMING ROLL OPERATOR HEAVY DUTY 2 mg ondansetron (ZOFRAN) injection intravenous, Administer over 2 Minutes, As needed, Starting on Sun11/13/22 at 0811, Anesthesia Intra-op Given 11/13/2022 8:19 AM FORMING ROLL OPERATOR HEAVY DUTY 4 mg Given 11/13/2022 8:11 AM FORMING ROLL OPERATOR HEAVY DUTY 4 mg propofoL (DIPRIVAN) 10 mg/mL IV intravenous, As needed, Starting on Sun11/13/22 at 0819, Anesthesia Intra-op Given 11/13/2022 8:19 AM FORMING ROLL OPERATOR HEAVY DUTY 150 mg documented in this encounter Care Teams Merchant Police Relationship Specialty Start Date End Date Rl Medina DO [address] [place] [address] PCP - General 08/09/17 05/25/24 documented as of this encounter
--- OUTSIDE RECORDS SUMMARY | 2024-11-05 23:05 | XMS_ITS | Encounter Summary ---
Author Organization [facility] Healthcare Address [address] [place] [address] Care Team Providers Care Test Design Engineer Name Role Phone Rl Medina DO Primary Care Provider Reason for Referral * Diagnostic Imaging (Routine) - Closed Specialty Diagnoses / Procedures Referred By Contac t Referred To Contact Diagnoses Unilateral primary osteoarthritis, left knee Aftercare following right knee joint replacement surgery Procedures XR Knee Left 3 Views Fransisco Heard MD [address] [place] [address] Phone: tel: fax: [facility] [address] [place] [phone] Phone: tel: Referral ID Status Reason Start Date Expiration Date Visits Re quested Visits Authorized [id number] Closed 08/03/2021 09/02/2022 1 1 * Diagnostic Imaging (Routine) - Closed Specialty Diagnoses / Procedures Referred By Contac t Referred To Contact Diagnoses Unilateral primary osteoarthritis, left knee Aftercare following right knee joint replacement surgery Procedures XR Knee Right 3 Views Fransisco Heard MD [address] [place] [phone] Phone: tel: fax: [facility] [address] [place] [phone] Phone: tel: Referral ID Status Reason Start Date Expiration Date Visits Re quested Visits Authorized [id number] Closed 08/03/2021 09/02/2022 1 1 Reason for Visit * Diagnostic Imaging (Routine) - Closed Specialty Diagnoses / Procedures Referred By Contac t Referred To Contact Diagnoses Unilateral primary osteoarthritis, left knee Aftercare following right knee joint replacement surgery Procedures XR Knee Right 3 Views Fransisco Heard MD [address] [address] Phone: tel: fax: [facility] [address] [place] [phone] Phone: tel: Referral ID Status Reason Start Date Expiration Date Visits Re quested Visits Authorized [id number] Closed 08/03/2021 09/02/2022 1 1 Encounter Details Date Type Department Care Team (Latest Contact Info) Description 08/09/2021 1:15 PM CDT - 08/09/2021 11:59 PM CDT Hospital Encounter [facility] [address] [place] [phone] Fransisco Heard MD [address] [address] Unilateral primary osteoarthritis, left knee; [...] on file Legal Sex Male 9:07 PM CUB REPORTER Gender Identity Not on file Sexual Orientation [...] pain 56 tablet 10/17/2021 02/08/20 22 peg 947-oduiuvxvarxg-h lycerin 1-0.36-0.2 % dropsIndications:D ry Eye Administer [...] surgery documented in this encounter Care Teams Test Design Engineer Relationship Specialty [place] [address] [place] [phone] PCP - General 08/09/17 05/25/24 documented as of this encounter
--- OUTSIDE RECORDS SUMMARY | 2024-11-05 23:05 | XMS_ITS | Encounter Summary ---
Author Organization [facility] Healthcare Address [address] [place] [address] Care Team Providers Care Hazmat Truck Driver Name Role Phone Rl Medina DO Primary Care Provider Encounter Details Date Type Department Care Team (Late st Contact Info) Description 09/30/2019 1:57 PM VEHICLE CALIBRATION ENGINEER Anesthesia Event [facility] Operating Room [address] [facility] [address] Edmond Barker MD [address] [facility] [address] [address] [place] [address] Sydney Aburto NP [address] [facility] [address] [id number] [place] [address] Anesthesia Record Procedure Summary Procedure Name Responsible [...] on file Legal Sex Male 9:07 PM VEHICLE CALIBRATION ENGINEER Gender Identity Not on file Sexual Orientation Not on file documented as of this encounter OR Notes * Anesthesia Postprocedure Evaluation - To Peguero MD PhD - 09/30/2019 4:56 PM CST Patient: Hira Evans Procedure Summary Date: 09/30/19 Room / Location: [facility] OR POD 2 ROOM 207 / [facility] OR POD 2 Anesthesia Start: 1357 Anesthesia [...] Edmond Barker MD at 09/30/2019 5:33 PM VEHICLE CALIBRATION ENGINEER CLE CALIBRATION ENGINEER CLE CALIBRATION ENGINEER CLE CALIBRATION ENGINEER * Anesthesia Procedure Notes - Rafael Shaw III, CRNA - 09/30/2019 2:19 PM CSTAssociated Order(s): Airway Airway Patient location: OR Urgency: elective Indications for airway management: anesthesia Difficult airway: no Staff: Placed by: REVISING CLERK: Rafael Shaw III, CRNA Emergent airway documentation: [...] with: silk tape Number of attempts: 1 CLE CALIBRATION ENGINEER * Anesthesia Preprocedure Evaluation - Edmond Barker MD - 09/03/2019 2:55 PM CDT Images from the original note were not included. Center for Preoperative Assessment and Planning Preoperative Evaluation Record Evaluation type/location: CPAP [facility] Date: 09/03/19 Anesthesia Evaluation Hira Evans is [...] BP - 85 Pertinent negatives: CAD ; [place] ; CABG ; valvular heart disease; valve [...] Medication protocol when under care of a REVISING CLERK Planned anesthesia: General Team communication plan: oral ET tube Comments: Patient prefers GA over spinal anesthesia Induction: Induction: intravenous. Postoperative Plan: Postoperative administration opioids intended. Patient's planned disposition post procedure is Floor. Informed Consent: Discussed plan with REVISING CLERK. Anesthesia plan and risks discussed with patient and spouse. Consent and Attending signature: I and/or my designee have discussed the anesthesia plan, benefits, possible alternatives, parental presence at time of induction (if indicated), and clinically relevant risks that may include dental injury, unintentional awareness, and/or other complications. The patient and/or parent/legal guardian understand, and agree to proceed. All questions answered. CLE CALIBRATION ENGINEER documented in this encounter Plan of Treatment Not on file documented as of this encounter Procedures Procedure Name Priority Date/Time Associated Diagnosis Comments MS AN PROCEDURE PLACEHOLDER Routine 09/30/2019 2:19 PM VEHICLE CALIBRATION ENGINEER MS AN ELECTIVE ENDOTRACHEAL AIRWAY Routine 09/30/2019 2:19 PM VEHICLE CALIBRATION ENGINEER documented in this encounter Results * MS AN ELECTIVE ENDOTRACHEAL AIRWAY, MS AN PROCEDURE PLACEHOLDER (09/30/2019 2:19 PM VEHICLE CALIBRATION ENGINEER) Narrative Rafael Sahw III, CRNA - 09/30/2019 2:19 PM VEHICLE CALIBRATION ENGINEER Rafael Shaw III, CRNA ? 09/30/2019 ??2:19 PM Airway Patient location: OR Urgency: elective Indications for airway management: anesthesia Difficult airway: no Staff: Placed by: REVISING CLERK: Rafael Shaw III, CRNA Emergent airway documentation: [...] 1417, Anesthesia Intra-op Given 09/30/2019 2:17 PM VEHICLE CALIBRATION ENGINEER 2,000 mg dexAMETHasone (DECADRON) 4 mg/mL injection Administer over 2 Minutes, As needed, Starting on Sun09/30/19 at 1456, Anesthesia Intra-op Given 09/30/2019 2:56 PM VEHICLE CALIBRATION ENGINEER 4 mg dexMEDEtomidine (PRECEDEX) 80 mcg/20 mL (4 mcg/mL) in sodium chloride 0.9% (premix) As needed, Starting on Sun09/30/19 at 1452, Anesthesia Intra-op Given 09/30/2019 2:57 PM VEHICLE CALIBRATION ENGINEER 12 mcg Given 09/30/2019 2:52 PM VEHICLE CALIBRATION ENGINEER 12 mcg famotidine (PEPCID) injection Administer over 2 Minutes, As needed, Starting on Sun09/30/19 at 1456, Anesthesia Intra-op Given 09/30/2019 2:56 PM VEHICLE CALIBRATION ENGINEER 20 mg fentaNYL (SUBLIMAZE) preservative free injection intravenous, As needed, Starting on Sun09/30/19 at 1405, Anesthesia Intra-op Given 09/30/2019 2:05 PM VEHICLE CALIBRATION ENGINEER 100 mc g glycopyrrolate (ROBINUL) injection intravenous, Administer over 1 Minutes, As needed, Starting on Sun09/30/19 at 1626, Anesthesia Intra-op Given 09/30/2019 4:26 PM VEHICLE CALIBRATION ENGINEER 0.6 mg HYDROmorphone (DILAUDID) injection intravenous, Administer over 2 Minutes, As needed, Starting on Sun09/30/19 at 1445, Anesthesia Intra-op Given 09/30/2019 2:45 PM VEHICLE CALIBRATION ENGINEER 1 mg Lactated Ringer's (LR) infusion 30 mL/hr, intravenous, Continuous, Starting on Sun09/30/19 at 1215, Pre-Op New Bag 09/30/2019 3:05 PM VEHICLE CALIBRATION ENGINEER Rate/Dose Verify 09/30/2019 1:57 PM VEHICLE CALIBRATION ENGINEER New Bag 09/30/2019 12:27 PM VEHICLE CALIBRATION ENGINEER 30 mL/hr 30 mL/hr lidocaine PF (XYLOCAINE) 10 mg/mL (1 %) preservative free injection As needed, Starting on Sun09/30/19 at 1405, Anesthesia Intra-op Given 09/30/2019 2:05 PM VEHICLE CALIBRATION ENGINEER 60 mg midazolam (VERSED) preservative free injection intravenous, Administer over 2 Minutes, As needed, Starting on Sun09/30/19 at 1405, Anesthesia Intra-op Given 09/30/2019 2:05 PM VEHICLE CALIBRATION ENGINEER 2 mg neostigmine (PROSTIGMIN) injection intravenous, Administer over 3 Minutes, As needed, Starting on Sun09/30/19 at 1626, Anesthesia Intra-op Given 09/30/2019 4:26 PM VEHICLE CALIBRATION ENGINEER 3 mg ondansetron (ZOFRAN) injection Administer over 2 Minutes, As needed, Starting on Sun09/30/19 at 1456, Anesthesia Intra-op Given 09/30/2019 2:56 PM VEHICLE CALIBRATION ENGINEER 4 mg ondansetron (ZOFRAN) injection intravenous, Administer over 2 Minutes, As needed, Starting on Sun09/30/19 at 1626, Anesthesia Intra-op Given 09/30/2019 4:26 PM VEHICLE CALIBRATION ENGINEER 4 mg propofol (DIPRIVAN) IV intravenous, As needed, Starting on Sun09/30/19 at 1405, Anesthesia Intra-op Given 09/30/2019 2:45 PM VEHICLE CALIBRATION ENGINEER 100 mg Given 09/30/2019 2:28 PM VEHICLE CALIBRATION ENGINEER 50 mg Given 09/30/2019 2:23 PM VEHICLE CALIBRATION ENGINEER 50 mg succinylcholine (ANECTINE) injection intravenous, As needed, Starting on Sun09/30/19 at 1405, Anesthesia Intra-op Given 09/30/2019 2:05 PM VEHICLE CALIBRATION ENGINEER 80 mg tranexamic acid (CYKLOKAPRON) 1,000 mg/10 mL (100 mg/mL) solution intravenous, As needed, Starting on Sun09/30/19 at 1438, Anesthesia Intra-op Given 09/30/2019 2:38 PM VEHICLE CALIBRATION ENGINEER 1,000 mg vecuronium (NORCURON) injection Administer over 1 Minutes, As needed, Starting on Sun09/30/19 at 1405, Anesthesia Intra-op Given 09/30/2019 2:58 PM VEHICLE CALIBRATION ENGINEER 1 mg Given 09/30/2019 2:16 PM VEHICLE CALIBRATION ENGINEER 4 mg Given 09/30/2019 2:05 PM VEHICLE CALIBRATION ENGINEER 2 mg documented in this encounter Care Teams Hazmat Truck Driver Relationship Specialty Start Date End Date Rl Medina DO [address] [place] [address] PCP - General 08/09/17 05/25/24 documented as of this encounter
--- OUTSIDE RECORDS SUMMARY | 2024-11-05 23:05 | XMS_ITS | Encounter Summary ---
Author Organization [facility] Address [address] [place] [address] Phone Care Team Providers Care Fretted Instrument Repairer Name Role Phone Rl Medina DO Primary Care Provider Reason for Referral * (Routine) - Closed Specialty Diagnoses / Procedures Referred By Manisha gale Referred To Contact Diagnoses Primary osteoarthritis of left knee Procedures Large Joint Injection: L knee Pancho Sue PA Phone: tel: fax: [facility] (All Locations) Referral ID Status Reason Start Date Expiration Date Visits Re quested Visits Authorized [id number] Closed 12/08/2019 2021 1 1 MIXER Reason for Visit * Reason Comments Pain Injections Encounter Details Date Type Department Care Team (Latest Contact Info) Description 12/08/2019 10:40 AM OIL MIXER Office Visit [facility] Orthopaedic Surgery [address] [facility] [address] [place] [address] Pancho Sue PA [address] [place] [address] Primary osteoarthritis of left knee (Primary Dx) Social History Tobacco Use Types Packs/Day Years Used Date Smoking Tobacco: Former Cigarettes 1 11 9 - 1979 Smokeless Tobacco: Never Alcohol Use Standard Drinks/Week Comments Yes 14 (1 standard drink = 0.6 oz pu re alcohol) social Sex and Gender Information Value Date Recorded Sex Assigned at Not on file Legal Sex Male 9:07 PM OIL MIXER Gender Identity Not on file Sexual Orientation Not on file documented as of this encounter Patient Instructions * Patient Instructions* Jessenia Allen ATC - 12/08/2019 10:40 AM OIL MIXER 1.) Your injection included 80 mg of [...] hesitate to contact the performing doctor???s office. MIXER documented in this encounter Progress Notes * [...] walking or standing. PHYSICAL EXAMINATION: Patient transfer [id number] pushing up on the arms chair ambulates [...] from July of 2019 which revealed near ixgr-ed-[id number] degenerative changes medial compartment on the standing [...] days. Pancho Sue PA-C Joint Reconstructive [facility] Orthopedic Surgery MIXER documented in this encounter Plan of Treatment Not on file documented as of this encounter Procedures Procedure Name Priority Date/Time Associated Diagnosis Comments TX ARTHROCENTESIS ASPIR&/INJ MAJOR JT/BURSA W/O US Routine 12/08/2019 10:40 AM OIL MIXER Primary osteoarthritis of left knee documented in this encounter Results * TX ARTHROCENTESIS ASPIR&/INJ MAJOR JT/BURSA W/O US (12/08/2019 10:40 AM OIL MIXER) Pancho Guzman PA - 12/08/2019 10:40 AM OIL MIXER BONITA Costa ? 12/08/2019 ??3:45 PM Large [...] of left knee Given 12/08/2019 11:35 AM OIL MIXER 6 mL methylPREDNISolone acetate (DEPO-medrol) injection 80 mg 80 mg, intra-articular, One-Time Injection, Starting on Sun12/08/19 at 1135, For 1 doseIndications:Primary osteoarthritis of left knee Given 12/08/2019 11:35 AM OIL MIXER 80 mg documented in this encounter Historical Medications * This list may reflect changes made after this encounter. ondansetron (Zofran) 4 mg tablet Take 1 tablet by mouth every 6 hours 10/24/2018 08/09/2021 added in this encounter Care Teams Fretted Instrument Repairer Relationship Specialty Start Date End Date Rl Medina DO [address] [place] [address] PCP - General 08/09/17 05/25/24 documented as of this encounter
--- OUTSIDE RECORDS SUMMARY | 2024-11-05 23:05 | XMS_ITS | Encounter Summary ---
Author Organization [facility] Healthcare Address [address] [place] [address] Care Team Providers Care Combat Systems Engineer Name Role Phone Rl Medina DO Primary Care Provider Encounter Details Date Type Department Care Team (Late st Contact Info) Description 10/15/2021 10:55 PM VASCULAR TECHNICIAN Lab [address] [address] Pre-procedure lab exam Social History Tobacco Use [...] on file Legal Sex Male 9:07 PM VASCULAR TECHNICIAN Gender Identity Not on file Sexual Orientation Not on file documented as of this encounter Plan of Treatment Not on file documented as of this encounter Procedures Procedure Name Priority Date/Time Associated Diagnosis Comments COVID-19 CORONAVIRUS RNA Routine 10/15/2021 2:05 PM VASCULAR TECHNICIAN Pre-procedure lab exam documented in this encounter Results * COVID-19 Coronavirus RNA Nasopharyngeal (10/15/2021 2:05 PM VASCULAR TECHNICIAN) COVID-19 RNA Not Detected [facility]UR[facility] Comment: Interpretive Data Synonyms for this test include: PCR and NAAT . ??Testing performed by the [facility] Molecular Infectious Disease Laboratory. The 2019-Novel Coronavirus [...] Yes LAURA ZARAGOZA Employeed in healthcare? No [facility] Group care resident? No [facility] Hospitalized? Unknown [facility] Is patient in ICU? Unknown [facility] Symptomatic as defined by CDC? No [facility] Nasopharyngeal 10/15/2021 2: 05 PM VASCULAR TECHNICIAN 10/15/2021 11:24 PM VASCULAR TECHNICIAN Narrative [facility] - 10/16/2021 7:53 PM VASCULAR TECHNICIAN What is the reason for testing?->Screening prior to scheduled procedure or surgery (batch) Fransisco Heard MD LAB MICROBIOLOGY - GENERAL ORDERABLES Final Result Performing Organization Address City/State/[facility] Co de Phone Number [facility] Department [place] [address] documented in this encounter Visit Diagnoses Diagnosis Pre-procedure lab exam Pre-procedural laboratory examination documented in this encounter Care Teams Combat Systems Engineer Relationship Specialty Start Date End Date Rl Medina DO [address] [place] [address] PCP - General 08/09/17 05/25/24 documented as of this encounter
--- OUTSIDE RECORDS SUMMARY | 2024-11-05 23:05 | XMS_ITS | Encounter Summary ---
Author Organization [facility] Address [address] [facility] [address] [place] [address] Phone Care Team Providers Care Controller Coal Or Ore Name Role Phone Rl Medina DO Primary Care Provider Reason for Visit * Consultation (Routine) - Closed Specialty Diagnoses / Procedures Referred By Manisha gale Referred To Contact Urology Diagnoses Bladder neck obstruction Rl Medina DO [address] [place] [address] Phone: tel: fax: [facility] (All Locations) Referral ID Status Reason Start Date Expiration Date V isits Requested Visits Authorized [id number] Closed Specialty Services Required 10/10/2022 11/09/2023 99 99 Encounter Details Date Type Department Care Team (Late st Contact Info) Description 10/17/2022 1:00 PM DIRECTOR OF PRODUCT DEVELOPMENT Office Visit [facility] Urology [address] Medical Office Building [address] [place] [phone] Ashley Mcmillan MD [address] [facility] [place] [address] Lesion of urinary bladder (Primary Dx); Bladder [...] Legal Sex Male 9:07 PM DIRECTOR OF PRODUCT DEVELOPMENT Gender Identity Not on file Sexual Orientation [...] into the urethra. Supervising Provider: DULCE Basilio CTOR OF PRODUCT DEVELOPMENT * Ashley Mcmillan MD - 10/17/2022 1:00 [...] neck lumen patent and at least 16 Sinhal[place] with no evidence of contracture or scarring [...] in the OR to rule out malignancy CTOR OF PRODUCT DEVELOPMENT * Ashley Mcmillan MD - 10/17/2022 1:00 PM CST Chief Complaint: Concern for bladder neck obstruction Overactive bladder I was requested to see Hira Evans to evaluate for the above-listed chief complaint by Dr. BryanJ. Adam DO in the Urology faculty practice clinic at [facility] in [place]. History of Present Illness: Hira Evans is a 72 y.o. male with a history of prostate cancer s/p RRP by Dr. Larson at [facility] in 2007 with undetectable PSA [...] appeared patent. He was then referred to [facility] for further evaluation. Today, his PVR was [...] mg(2 mg/1.5 mL) pen injector injection peg [id number] 1-0.36-0.2 % drops Administer 1 drop into [...] you have any questions or concerns at [phone]. Ashley Mcmillan MD Urologic Surgical Oncologist Division of Urologic Surgery [facility] [place] CTOR OF PRODUCT DEVELOPMENT documented in this encounter Plan of Treatment [...] 10/17/2022 documented in this encounter Care Teams Controller Coal Or Ore Relationship Specialty Start Date End Date Rl Medina DO [address] [place] [address] PCP - General 08/09/17 05/25/24 documented as of this encounter
--- OUTSIDE RECORDS SUMMARY | 2024-11-05 23:05 | XMS_ITS | Encounter Summary ---
Author Organization [facility] Address [address] [place] [address] Phone Care Team Providers Care Customer Logistics Manager Name Role Phone Rl Medina DO Primary Care Provider [phone] Reason for Visit * Reason Comments Pain Encounter Details Date Type Department Care Team (Late st Contact Info) Description 01/14/2020 11:45 AM CDT Office Visit [facility] Orthopaedic Surgery [address] 2[address] [place] [address] Fransisco Heard MD [address] [facility] [address] [place] [address] Aftercare following right knee joint replacement surgery [...] on file Legal Sex Male 9:07 PM SITE SAFETY REPRESENTATIVE Gender Identity Not on file Sexual [...] 09/28/2021 added in this encounter Care Teams Customer Logistics Manager Relationship Specialty Start Date End Date Rl Medina DO [address] [place] [address] PCP - General 08/09/17 05/25/24 documented as of this encounter
--- OUTSIDE RECORDS SUMMARY | 2024-11-05 23:05 | XMS_ITS | Encounter Summary ---
Author Organization [facility] Address [address] [place] [address] Phone Care Team Providers Care Substitute Crossing Guard Name Role Phone Rl Medina DO Primary Care Provider [phone] Reason for Visit * Reason Comments Post-op Encounter Details Date Type Department Care Team (Late st Contact Info) Description 11/08/2021 11:45 AM TEST SKEIN WINDER Office Visit [facility] Orthopaedic Surgery [facility] Medical Office Building [address] [place] [address] Fransisco Heard MD [address] [facility] [address] [place] [address] Status post left knee replacement (Primary Dx) [...] on file Legal Sex Male 9:07 PM TEST SKEIN WINDER Gender Identity Not on file Sexual [...] Peyton Thompson Distinguished Professor of Orthopaedic Surgery SKEIN WINDER documented in this encounter Plan of Treatment Not on file documented as of this encounter Visit Diagnoses Diagnosis Status post left knee replacement- Primary documented in this encounter Care Teams Substitute Crossing Guard Relationship Specialty Start Date End Date Rl Medina DO [address] [place] [address] PCP - General 08/09/17 05/25/24 documented as of this encounter
--- OUTSIDE RECORDS SUMMARY | 2024-11-05 23:05 | XMS_ITS | Encounter Summary ---
Author Organization [facility] Address [address] [place] [address] Phone Care Team Providers Care Government Documents Librarian Name Role Phone Rl Medina DO Primary Care Provider [phone] Reason for Visit * Reason Onset Date Comments TJA 09/27/2021 Encounter Details Date Type Department Care Team (Late st Contact Info) Description 09/27/2021 Documentation [facility] Orthopaedic Surgery [address] [place] [address] Medical Office Building [address] [place] [address] Karishma Escudero RN TJA Social [...] on file Legal Sex Male 9: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 (home) Procedure: L TKA OR Date: 10/17/21 OR Location: [facility] Joint Gas Worker Name: Neelima PCP: Rl Medina DO When [...] morning , Disp: , Rfl: ??? peg [id number] (Visine Tired Eye Relief) 1-0.36-0.2 % drops, [...] Female: Illegal Drug Use: Never Functional/Home Assessment it lead assistance: Live in available day/night In a: [...] WBAT Home Location: > 150 miles from [facility] or outside of service area should consider [...] Total Score: 11 (If <9 send to [facility]'s floor care team for review) (If <6 [...] Proceed with Scheduling Surgery. Kathleen Lloyd RN ER PITMAN documented in this encounter Plan of Treatment Not on file documented as of this encounter Visit Diagnoses Not on filedocumented in this encounter Care Teams Government Documents Librarian Relationship Specialty Start Date End Date Rl Medina DO [address] [place] [address] PCP - General 08/09/17 05/25/24 documented as of this encounter
--- OUTSIDE RECORDS SUMMARY | 2024-11-05 23:05 | XMS_ITS | Encounter Summary ---
Author Organization [facility] Healthcare Address [address] [place] [address] Care Team Providers Care Case Supervisor Name Role Phone Rl Medina DO Primary Care Provider Encounter Details Date Type Department Care Team (Late st Contact Info) Description 09/24/2019 4:10 PM SHINGLE SAWYER Lab [address] [address] Right knee pain, unspecified chronicity; Aftercare following [...] on file Legal Sex Male 9:07 PM SHINGLE SAWYER Gender Identity Not on file Sexual Orientation Not on file documented as of this encounter Plan of Treatment Not on file documented as of this encounter Procedures Procedure Name Priority Date/Time Associated Diagnosis Comments CRYSTAL ANALYSIS, BODY FLUID Routine 09/24/2019 3:28 PM SHINGLE SAWYER Right knee pain, unspecified chronicity Aftercare following right knee joint replacement surgery CELL DIFFERENTIAL, BODY FLUID Routine 09/24/2019 3:28 PM SHINGLE SAWYER AEROBIC AND ANAEROBIC CULTURE AND GRAM STAIN Routine 09/24/2019 3:28 PM SHINGLE SAWYER Right knee pain, unspecified chronicity Aftercare following right knee joint replacement surgery documented in this encounter Results * Cell Differential, Body Fluid (09/24/2019 3:28 PM SHINGLE SAWYER) Pathologist [facility] Total cells diffed 100 cells [facility] Comment: Interpretive Data Unless otherwise specified, the reference range and other method performance specifications have not been established for CSF/Body Fluid tests. ??The test results should be integrated into the clinical context for interpretation. Current interpretive data was last revised on 2019. Neutrophils, fld 4 % [facility] Lymphs, fld 4 % [facility] Monocyte, fld 81 % [facility] Synovial cells, fld 11 % [facility] Specimen type, fld SYNOVIAL FLUID [facility] Body site, fld RIGHT KNEE [facility] Fluid 09/24/2019 3:28 PM SHINGLE SAWYER 09/24/2019 4:07 PM SHINGLE SAWYER Fransisco Heard MD LAB BODY FLUIDS AND STOOLS ORDERABLES Final Result Performing Organization Address City/[facility]/ZIP Co de Phone Number [facility] Department [place] [address] * Crystal Analysis, Body Fluid (09/24/2019 3:28 PM SHINGLE SAWYER) [facility] Specimen type, fld Synovial [facility] Body site, fld RIGHT KNEE [facility] Crystals None Seen None Seen [facility] Fluid 09/24/2019 3:28 PM SHINGLE SAWYER 09/24/2019 4:09 PM SHINGLE SAWYER Fransisco Heard MD LAB BODY FLUIDS AND STOOLS ORDERABLES Final Result [facility] of [place] [address] * Aerobic and anaerobic culture and gram stain Aspirate Knee, right (09/24/2019 3:28 PM SHINGLE SAWYER) Pathologist [facility] Direct Specimen Exam Stain: No polymorphonuclear leukocytes seen. No organisms seen. [facility] Report Final Report: No growth [facility] Aspirate (Knee, right) 09/24/2019 3:28 PM SHINGLE SAWYER 09/24/2019 5:09 PM SHINGLE SAWYER Narrative [facility] - 09/29/2019 10:53 AM SHINGLE SAWYER Testing performed by [facility] Microbiology Laboratory ([phone]) Specimens submitted from normally sterile body sites [...] LAB MICROBIOLOGY - GENERAL ORDERABLES Final Result [facility] Department [place] [address] documented in this encounter Visit Diagnoses Diagnosis Right knee pain, unspecified chronicity Aftercare following right knee joint replacement surgery documented in this encounter Care Teams Case Supervisor Relationship Specialty Start Date End Date Rl Medina DO [address] [place] [address] PCP - General 08/09/17 05/25/24 documented as of this encounter
--- OUTSIDE RECORDS SUMMARY | 2024-11-05 23:05 | XMS_ITS | Encounter Summary ---
Author Organization [facility] Address [address] [facility] [address] [place] [address] Care Team Providers Care Machine Fitter Name Role Phone Rl Medina DO Primary Care Provider Encounter Details Date Type Department Care Team (Late st Contact Info) Description 10/14/2021 Orders Only [facility] Testing Site - [address] [phone] Fransisco Heard MD [address] [facility] [address] [place] [address] Pre-procedure lab exam (Primary Dx) Social History [...] on file Legal Sex Male 9:07 PM STRIKE WARFARE/MISSILE SYSTEMS OFFICER Gender Identity Not on file Sexual Orientation Not on file documented as of this encounter Progress Notes * Gabriel Kidd - 10/14/2021 5:31 PM CST Pre-procedure ?? Date of Px/chemo/treatment/placement/transfer 10/17/2021 ?? Testing site patient will be sent to: [place], [place] ?? Date testing requested: 10/15/2021 ?? Testing: COVID-19 RNA ?? Is this the first COVID-19 test for this patient? Yes ?? Does the patient currently work in a healthcare facility with direct patient contact? No ?? Is the patient a resident of a congregate care or living setting? No ?? Please select the performing region: [facility] KE WARFARE/MISSILE SYSTEMS OFFICER documented in this encounter Miscellaneous Notes * Addendum Note - Susan Lozano - 10/14/2021 5:31 PM CSTAddended by: SUSAN LOZANO on: 10/15/2021 10:53 PM Modules accepted: Orders KE WARFARE/MISSILE SYSTEMS OFFICER documented in this encounter Plan of Treatment Not on file documented as of this encounter Results * COVID-19 Coronavirus RNA Nasopharyngeal (10/15/2021 2:05 PM STRIKE WARFARE/MISSILE SYSTEMS OFFICER) COVID-19 RNA Not Detected [facility] Comment: Interpretive Data Synonyms for this test include: PCR and NAAT . ??Testing performed by the [facility] Molecular Infectious Disease Laboratory. The 2019-Novel [...] December 09, 2020. First COVID-19 test? Yes [facility] Employeed in healthcare? No [facility] Group care resident? No [facility] Hospitalized? Unknown [facility] Is patient in ICU? Unknown [facility] Symptomatic as defined by CDC? No [facility] Nasopharyngeal 10/15/2021 2: 05 PM STRIKE WARFARE/MISSILE SYSTEMS OFFICER 10/15/2021 11:24 PM STRIKE WARFARE/MISSILE SYSTEMS OFFICER Narrative [facility] - 10/16/2021 7:53 PM STRIKE WARFARE/MISSILE SYSTEMS OFFICER What is the reason for testing?->Screening prior to scheduled procedure or surgery (batch) us Fransisco Heard MD LAB MICROBIOLOGY - GENERAL ORDERABLES Final Result [facility] Department [place] [address] documented in this encounter Visit Diagnoses Diagnosis Pre-procedure lab exam- Primary Pre-procedural laboratory examination Pre-procedure lab exam Pre-procedural laboratory examination documented in this encounter Care Teams Machine Fitter Relationship Specialty Start Date End Date Rl Medina DO [address] [place] [address] PCP - General 08/09/17 05/25/24 documented as of this encounter
--- OUTSIDE RECORDS SUMMARY | 2024-11-05 23:05 | XMS_ITS | Encounter Summary ---
Author Organization [facility] Healthcare Address [address] [place] [address] Care Team Providers Care Strategic Insights Lead Name Role Phone Rl Medina DO Primary Care Provider Encounter Details Date Type Department Care Team (Latest Contact Info) Description 03/15/2023 10:27 AM CDT - 03/15/2023 11:59 PM CD[place] [address] Overactive bladder; Prostate cancer (HCC); Other abnormal [...] file Legal Sex Male 9:07 PM FISHER SPEAR Gender Identity Not on file Sexual Orientation [...] mellitus 0.5 mg Sunday09/21/2022 09/13/20 23 peg [id number] lycerin 1-0.36-0.2 % dropsIndications:D ry Eye Administer [...] growth based on current clinical standards) [facility] Organism (CLINICALLY INSIGNIFICANT GROWTH [facility] Urine, clean voided 03/15/2023 2:53 PM CDT 03/15/2023 3:53 PM CDT Narrative [facility] - 03/16/2023 6:38 PM CDT Testing performed by [facility] Microbiology Laboratory ([phone]) Pan Irene MD LAB MICROBIOLOGY - GENERAL ORD ERABLES Final Result [facility] One [facility] Department [place] [address] documented in this encounter Visit Diagnoses Diagnosis Overactive bladder Hypertonicity of bladder Prostate cancer (HCC) Malignant neoplasm of prostate Other abnormal findings in urine documented in this encounter Care Teams Strategic Insights Lead Relationship Specialty Start Date End Date Rl Medina DO [address] [place] [address] PCP - General 08/09/17 05/25/24 documented as of this encounter
--- OUTSIDE RECORDS SUMMARY | 2024-11-05 23:05 | XMS_ITS | Encounter Summary ---
Author Organization [facility] Address [address] [place] [address] Phone Care Team Providers Care Waste Disposal Plant Operator Name Role Phone Rl Medina DO Primary Care Provider Encounter Details Date Type Department Care Team (Late st Contact Info) Description 08/09/2021 Orders Only [facility] Orthopaedic Surgery [address] [place] [address] Medical Office Building [address] [place] [phone] Fransisco Heard MD [facility] [facility] [address] [place] [address] Social History Tobacco Use Types Packs/Day Years Used Date Smoking Tobacco: Former Cigarettes 1 11 1 969 - 1980 Smokeless Tobacco: Never Alcohol Use Standard Drinks/Week Comments Yes 14 (1 standard drink = 0.6 oz pu re alcohol) social Sex and Gender Information Value Date Recorded Sex Assigned at Not on file Legal Sex Male 9:[address] Gender Identity Not on file Sexual Orientation [...] on filedocumented in this encounter Care Teams Waste Disposal Plant Operator Relationship Specialty Start Date End Date Rl Medina DO [address] [place] [address] PCP - General 08/09/17 05/25/24 documented as of this encounter
--- OUTSIDE RECORDS SUMMARY | 2024-11-05 23:05 | XMS_ITS | Encounter Summary ---
Author Organization [facility] Address [address] [place] [address] Phone Care Team Providers Care Box Press Operator Name Role Phone Rl Medina DO Primary Care Provider Reason for Referral * Consultation (Routine) - Closed Specialty Diagnoses / Procedures Referred By Manisha gale Referred To Contact Physical Therapy Diagnoses Primary osteoarthritis of left knee Fransisco Heard MD [address] [facility] [address] [place] [address] Phone: tel: fax: External Order Referral ID Status Reason Start Date Expiration Date V isits Requested Visits Authorized [id number] Closed Specialty Services Required 10/19/2021 11/18/2022 12 12 Question Answer PTRFR PT Evaluate and Treat Therapy options discussed with patient? Yes Location provided for therapy services is: Patient requested/Patient preferred Please select the performing region: External Order [[id number]] Comments POST-OPERATIVE TOTAL KNEE - PHYSICAL THERAPY REFERRAL DATE: 10/19/2021 1950 Diagnosis: Left Total Knee Replacement Date of Surgery: 10/17/21 F: [phone] Duration of therapy: 2-3 times per week for 4-6 weeks Evaluate and Treat Weight Bearing Status: Full weight bearing bilateral lower extremity Active/Active Assisted ROM, Passive ROM, Strengthening, Gait Training and Modalities Restrictions: no squats past 90 degrees; patient has home program with clinical study rFansisco Heard M.D., , Fransisco Heard MD MACHINE OPERATOR Encounter Details Date Type Department Care Team (Late st Contact Info) Description 10/19/2021 Orders Only [facility] Orthopaedic Surgery [address] [facility] Office Building [address] [place] [address] Fransisco Heard MD [address] [place] [address] Primary osteoarthritis of left knee (Primary Dx) [...] on file Legal Sex Male 9:07 PM LOOP MACHINE OPERATOR Gender Identity Not on file [...] documented in this encounter Care Teams Box Press Operator Relationship Specialty Start Date End Date Rl Medina DO [address] [place] [address] PCP - General 08/09/17 05/25/24 documented as of this encounter
--- OUTSIDE RECORDS SUMMARY | 2024-11-05 23:05 | XMS_ITS | Encounter Summary ---
Author Organization [facility] Address [address] [place] [address] Phone Care Team Providers Care Automatic Spreader Operator Name Role Phone Rl Medina DO Primary Care Provider Encounter Details Date Type Department Care Team (Late st Contact Info) Description 10/18/2022 Telephone [facility] [address] [place] [address] Linda Rowan Social History Tobacco Use Types [...] on file Legal Sex Male 9:07 PM FUSE ASSEMBLER Gender Identity Not on file Sexual [...] with the time once the OR confirms ASSEMBLER * Telephone Encounter - Linda Rowan - 10/18/2022 12:51 PM CST ----- Message from Ashley Mcmillan MD sent at 10/17/2022 1:33 PM FUSE ASSEMBLER ----- Regarding: Schedule procedure Hi Linda, can you reach out to Mr. Evans to schedule surgery? Procedure: Cystoscopy, bladder biopsy CaseTime: 30 minutes Location: Any Pre-op Testing/Work-up: CPAP Other: First available, non-urgent in November Post-op appointment: I will call with pathology David Zelaya ASSEMBLER documented in this encounter Plan of Treatment Not on file documented as of this encounter Visit Diagnoses Not on filedocumented in this encounter Care Teams Automatic Spreader Operator Relationship Specialty Start Date End Date Rl Medina DO [address] [place] [address] PCP - General 08/09/17 05/25/24 documented as of this encounter
--- OUTSIDE RECORDS SUMMARY | 2024-11-05 23:05 | XMS_ITS | Encounter Summary ---
Author Organization [facility] Address [address] [place] [address] Phone Care Team Providers Care Communication Electronic Technician Name Role Phone Rl Medina DO Primary Care Provider Reason for Referral * Diagnostic Imaging (Routine) - Closed Specialty Diagnoses / Procedures Referred By Manisha gale Referred To Contact Diagnoses Status post left knee replacement Procedures XR Knee Left 1 or 2 Views Fransisco Heard MD [address] [facility] [address] [place] [address] Phone: tel: fax: [facility] [address] [facility] [address] [place] [address] Phone: tel: Referral ID Status Reason Start Date Expiration Date Visits Re quested Visits Authorized [id number] Closed 12/22/2021 01/21/2023 1 1 UDER OPERATOR VERTICAL Reason for Visit * Reason Comments Pain * Consultation (Routine) - Closed Specialty Diagnoses / Procedures Referred By Manisha gale Referred To Contact Orthopedic Surgery Diagnoses Left knee pain, unspecified chronicity Rl Medina DO [address] [place] [address] Phone: tel: fax: [facility] (All Locations) Referral ID Status Reason Start Date Expiration Date V isits Requested Visits Authorized [id number] Closed Specialty Services Required 01/23/2022 02/22/2023 1 1 Encounter Details Date Type Department Care Team (Late st Contact Info) Description 02/07/2022 1:30 PM CDT Office Visit [facility] Orthopaedic Surgery [address] [facility] Medical Office Building [address] [place] [address] Fransisco Heard MD [address] [place] [address] Status post left knee replacement (Primary Dx); [...] on file Legal Sex Male 9:07 PM EXTRUDER OPERATOR VERTICAL Gender Identity Not on file Sexual Orientation [...] 2021 documented in this encounter Care Teams Communication Electronic Technician Relationship Specialty Start Date End Date Rl Medina DO [address] [place] [address] PCP - General 08/09/17 05/25/24 documented as of this encounter
--- OUTSIDE RECORDS SUMMARY | 2024-11-05 23:05 | XMS_ITS | Encounter Summary ---
Author Organization [facility] Address [address] [place] [address] Care Team Providers Care Technical Designer Name Role Phone Rl Medina DO Primary Care Provider Encounter Details Date Type Department Care Team (Latest Contact Info) Description 10/17/2021 3:55 PM BRASS MOLDER HELPER - 10/17/2021 11:59 PM BRASS MOLDER HELPER Hospital Encounter [facility] Imaging [address] [place] [address] Discharge Disposition: Discharge to home or self [...] on file Legal Sex Male 9:07 PM BRASS MOLDER HELPER Gender Identity Not on file Sexual [...] pain 56 tablet 10/17/2021 02/08/20 22 peg 475-ccuuzhugsxmm-r lycerin 1-0.36-0.2 % dropsIndications:D ry Eye Administer [...] VIEWS ED Urgent/IP Urgent 10/17/2021 4:12 PM BRASS MOLDER HELPER documented in this encounter Results * XR Knee Left 1 or 2 View (10/17/2021 4:12 PM BRASS MOLDER HELPER) Anatomical Region Laterality Modality Lower Extremities, Knee Left Computed Radiography 10/17/2021 4:16 PM BRASS MOLDER HELPER Impressions 10/17/2021 4:16 PM BRASS MOLDER HELPER 1. New two component left knee arthroplasty for osteoarthritis. Electronically signed by: Hood Kaur M.D. Narrative 10/17/2021 4:16 PM BRASS MOLDER HELPER EXAMINATION: XR KNEE LEFT 1 OR 2 [...] on filedocumented in this encounter Care Teams Technical Designer Relationship Specialty Start Date End Date Rl Medina DO [address] [place] [address] PCP - General 08/09/17 05/25/24 documented as of this encounter
--- OUTSIDE RECORDS SUMMARY | 2024-11-05 23:05 | XMS_ITS | Encounter Summary ---
Author Organization [facility] Healthcare Address [address] [place] [address] Care Team Providers Care Head Of Sales And Marketing Name Role Phone Rl Medina DO Primary Care Provider [phone] Reason for Visit * Auth/Cert Specialty Diagnoses / Procedures Referred By Contac t Referred To Contact Diagnoses Gross hematuria Lesion of bladder Gross hematuria [R31.0] Lesion of bladder [N32.9] Procedures DE CYSTOURETHROSCOPY WITH BIOPSY BIOPSY - BLADDER CYSTOSCOPY Referral ID Status Reason Start Date Expiration Date Visits Re quested Visits Authorized [id number] 1 1 Encounter Details Date Type Department Care Team (Late st Contact Info) Description 11/13/2022 9:00 AM EXPERIENCE SPECIALIST - 11/13/2022 10:30 AM EXPERIENCE SPECIALIST Surgery [facility] Operating Room [address] [place] [address] Ashley Mcmillan MD [address] [place] [address] BIOPSY - BLADDER Surgery Details Date/Time Status Location OR Service Patient Class Case Cl ass Case Type Trauma Case? 11/13/2022 9:00 AM Posted [facility] OPERATING ROOM OR Urology Outpatient Elective Panel [...] on file Legal Sex Male 9:07 PM EXPERIENCE SPECIALIST Gender Identity Not on file Sexual Orientation Not on file documented as of this encounter Last Filed Vital Signs Vital Sign Reading Time Taken Comments Blood Pressure 114/56 11/13/2022 9:20 AM EXPERIENCE SPECIALIST Pulse 51 11/13/2022 9:25 AM EXPERIENCE SPECIALIST Temperature 35.9 ??C (96.6 ??F) 11/13/2022 9:25 AM CS T Respiratory Rate 20 11/13/2022 9:25 AM EXPERIENCE SPECIALIST Oxygen Saturation 100% 11/13/2022 9:25 AM EXPERIENCE SPECIALIST Inhaled Oxygen Concentration - - Weight 83.9 kg (185 lb) 10/25/2022 9:05 AM EXPERIENCE SPECIALIST Height 172.7 cm (5' 8 ) 10/25/2022 9:05 AM EXPERIENCE SPECIALIST Body Mass Index 28.13 10/25/2022 9:05 AM EXPERIENCE SPECIALIST documented in this encounter Discharge Instructions * Discharge Instructions* Tangela Tolliver RN - 11/13/2022 8:09 AM EXPERIENCE SPECIALIST Discharge Instructions: Surgery performed: Cystoscopy, bladder biopsy New medications: - Phenazopyridine as needed for pain with urination. This medication may cause your urine to turn orange or dark red in color. - Acetaminophen and ibuprofen as needed for pain, available kvyz-ugu-zcrtwjh; take this scheduled for the next 72 hours, then afterwards as needed - Docusate/miralax as needed for constipation, available uqpc-jvx-olbvose. Constipation is common after anesthesia - Macrobid, [...] AM to 5:00 PM: call Dr. Mcmillan's reproductive healthcare assistant Linda at [phone] and askfor a member of your doctor's team. For urgent matters after 5:00 PM during the week or on weekendsor holidays, call [phone] and ask to have the Urology Rn Procedure Physician paged for you. You have received anesthesia, therefore, for the next 24 hours and/or while taking narcotic pain medication; -Do NOT drive a vehicle -Do NOT drink alcohol -Do NOT make important personal or business decisions or sign legal documents. Examples of narcotic pain medication include Percocet, Oxycontin, [place], Hydrocodone, and Oxycodone. FAQs (frequently asked questions) [...] physical therapy, we are available to assist: [facility] STAR: [facility] [phone] [place] [phone] [facility] [phone] How are some things that you can [...] given by your doctor or other health child caregiver private home. RIENCE SPECIALIST RIENCE SPECIALIST * Attachments The following attachments cannot be sent through Care Everywhere. * General Anesthesia (Discharge Care) (Lebanese) * Cystoscopy (Discharge Care) (Lebanese) documented in this encounter Medications at Time [...] mellitus 0.5 mg Sunday09/21/2022 09/13/20 23 peg 489-pmdjkmvawfkt-z lycerin 1-0.36-0.2 % dropsIndications:D ry Eye Administer [...] for : Procedure(s): BIOPSY - BLADDER CYSTOSCOPY RIENCE SPECIALIST Source Note - Ed Whitman MD - 11/02/2022 8:01 AM EXPERIENCE SPECIALIST Images from the original note were not included. [facility] Preoperative Evaluation Record Evaluation type/location: TPAP from [facility] Planned procedure site: [facility] OR Date: 11/02/22 NOTE: This note represents [...] BP - 85 Pertinent negatives: CAD ; GA ; CABG ; valvular heart disease; valve [...] provided by telephone and electronically sent via [employer]. Patient verbalized understanding of preoperative plan. Blood [...] -- 09/21/22 -- Fidelia Perdue MD peg 324-xhulhxwgkisi-yrnelrtr 1-0.36-0.2 % drops -- 10/06/19 -- Fidelia [...] mg/1.5 mL) pen injector injection ??? peg 763-nvldqarvhvql-urkhilod 1-0.36-0.2 % drops ??? polyethylene glycol (MIRALAX) [...] Medication protocol when under care of a CYTOLOGY LABORATORY MANAGER Planned anesthesia: General Informed Consent: Anesthesia plan and risks discussed with patient. Consent and Attending signature: I and/or my designee have discussed the anesthesia plan, benefits, possible alternatives, parental presence at time of induction (if indicated), and clinically relevant risks that may include dental injury, unintentional awareness, and/or other complications. The patient and/or parent/legal guardian understand, and agree to proceed. All questions answered. RIENCE SPECIALIST RIENCE SPECIALIST documented in this encounter Miscellaneous Notes [...] draped in usual sterile fashion. A 21 Italian Cystoscope with a 30 degree lens was [...] 8:18 AM No Resident involved on case RIENCE SPECIALIST RIENCE SPECIALIST * Perioperative Nursing Note - Em Patrick RN - 10/25/2022 9:19 AM EXPERIENCE SPECIALIST [facility] Planning Perioperative Nursing Note Telephone Preoperative Evaluation ([facility]) - TELEPHONE ONLY, NO PHYSICAL EXAM [...] pen injector injection 0.5 mg Sunday peg 349-wyljjhtkiwvu-vrrdhpdr 1-0.36-0.2 % drops Administer 1 drop into both eyes once daily as needed polyethylene glycol (MIRALAX) 17 gram/dose powder Take 17 g by mouth daily as needed sildenafil, antihypertensive, (REVATIO) 20 mg tablet Take 20 mg by mouth as needed Implants Bone Cement [facility] 6197-9-010 Simplex P Full Dose Radiopaque Preblend Cement Bone Tobramycin - S0- [id number] - Implanted (Right) Knee Inventory item: [employer] Simplex P Full Dose Radiopaque Preblend Cement Bone Asgpzsjwjk8454-0-287 Model/Cat number: [id number] Serial number: 0 Poly Operator: [facility] Lot number: [id number] Device identifier: [id number] Device identifier type: GS1 As of 09/30/2019 Status: Implanted Other - see comments [employer] [id number] Kandace II 15mm Constrain Knee 5-6 Insert Articular Uhmwpe- S0 - [id number] - Implanted (Right) Knee Inventory item: [employer] Kandace Ii 15mm Constrain Knee 5-6 Insert ArticularUhmwpe [id number] Model/Cat number: [id number] Serial number: 0 Poly Operator: [employer] Lot number: [id number] As of 09/30/2019 Status: Implanted [employer] [id number] Legion 10mm Screw Knee 6 Wedge Femoral - S0 - [id number] -Implanted (Right) Knee Inventory item: [employer] Legion 10mm Screw Knee 6 Wedge Femoral [id number] Model/Cat number: [id number] Serial number: 0 Poly Operator: [employer] Device identifier: [id number] Device identifier type: [facility] As of 09/30/2019 Status: Implanted [employer] [id number] Legion Constrain Knee Right 6 Component Femoral Oxinium - S0 - [id number] - Implanted (Right) Knee Inventory item: [employer] Legion Constrain Knee Right 6 Component Femoral Oxinium [id number] Model/Cat number: [id number] Serial number: 0 Poly Operator: [employer] Lot number: [id number] As of 09/30/2019 Status: Implanted [employer] [id number] Legion 5mm Alcon Step Knee Right Medial Left Lateral 5-6 Wedge - S0 - [id number] - Implanted (Right) Knee Inventory item: [employer] Legion 5mm Alcon Step Knee Right Medial Left Lateral5-6 Wedge [id number] Model/Cat number: [id number] Serial number: 0 Poly Operator: [employer] Device identifier: [id number] Device identifier type: [facility] As of 09/30/2019 Status: Implanted [employer] [id number] Legion 15mm 160mm Press Fit Knee Stem Femoral - S0 - [id number] - Implanted (Right) Knee Inventory item: [employer] Legion 15mm 160mm Press Fit Knee Stem Femoral [id number] Model/Cat number: [id number] Serial number: 0 Poly Operator: [employer] Lot number: [id number] As of 09/30/2019 Status: Implanted [employer] [id number] Legion 10mm Screw Knee 6 Wedge Femoral - S0 - [id number] -Implanted (Right) Knee Inventory item: [employer] Legion 10mm Screw Knee 6 Wedge Femoral [id number] Model/Cat number: [id number] Serial number: 0 Poly Operator: [employer] Lot number: [id number] As of 09/30/2019 Status: Implanted [employer] [id number] Legion Revision Knee Right 5 Baseplate Tibial - S0 - [id number] - Implanted (Right) Knee Inventory item: [employer] Legion Revision Knee Right 5 Baseplate Tibial [id number] Model/Cat number: [id number] Serial number: 0 Poly Operator: [employer] Lot number: [id number] Device identifier: [id number] Device identifier type: GS1 As of 09/30/2019 Status: Implanted [employer] [id number] Legion 15mm 160mm Press Fit Knee Stem Femoral - S0 - [id number] - Implanted (Right) Knee Inventory item: [employer] Legion 15mm 160mm Press Fit Knee Stem Femoral [id number] Model/Cat number: [id number] Serial number: 0 Poly Operator: [employer] Lot number: [id number] Device identifier: [id number] Device identifier type: GS1 As of 09/30/2019 Status: Implanted [facility] 5517-F-501 Triathlon Cruciate Retain Bead Knee Left 5 Component Femoral Pa - Sn/A - [id number] - Implanted (Left) Knee Inventory item: [facility] Triathlon Cruciate Retain Bead Knee Left 5 Component Femoral Pa 5517-F-501 Model/Cat number: [id number] Serial number: N/A Poly Operator: [facility] Lot number: [id number] Device identifier: [id number] Device identifier type: GS1 As of 10/17/2021 Status: Implanted [facility] 5536-B-600 Triathlon Knee 6 Baseplate Tibial Tritanium - Sn/A - [id number] - Implanted (Left) Knee Inventory item: [employer] Triathlon Knee 6 Baseplate Tibial Tritanium 5536-B-600 Model/Cat number: [id number] Serial number: N/A Poly Operator: [facility] Lot number: [id number] Device identifier: [id number] Device identifier type: GS1 As of 10/17/2021 Status: Implanted [facility] 2553-X-063-[id number] Insert Tibial Triathlon 6 H10mm Knee Bearing Condylar Stabilize Sterile - Sn/A - [id number] - Implanted (Left) Knee Inventory item: [employer] Insert Tibial Triathlon 6 H10mm Knee Bearing Condylar Stabilize Sterile 4713-F-156-E Model/Cat number: [id number] Serial number: N/A Poly Operator: [facility] Lot number: [id number] Device identifier: [id number] Device identifier type: GS1 As of 10/17/2021 Status: Implanted Type Not Specified [facility] 6197-9-010 Simplex P Full Dose Radiopaque Preblend Cement Bone Tobramycin - [id number] - Implanted (Right) Knee Inventory item: [employer] Simplex P Full Dose Radiopaque Preblend Cement Bone Agflqfsjdx6463-4-299 Model/Cat number: [id number] Poly Operator: [facility] Device identifier: [id number] Device identifier type: GS1 As of 09/30/2019 [...] Systems: Spouse/significant other Assistance Needed: Spouse/ Cyda/ Senior Net Developer and helper Patient expects to be discharged to:: Private residence [address] PRINCIPAL NO ADDITIONAL COMMENTS/ FOLLOW UP RIENCE SPECIALIST * Pre-Procedure Instructions - Em Patrick RN - 10/25/2022 9:11 AM EXPERIENCE SPECIALIST [facility] ([facility]) [...] your insurance card, a photo ID (example: Senior Net Developer's License) and a method of payment for [...] Chart. If you are having surgery at [facility], please arrive on the day of surgery [...] Pathway to Excellent Care by the followinglink: [email or web address] How To Prepare Your [...] questions, please call the CPAP Staff at [phone], Sunday-Sunday 8am-4:30pm. All patients should read the below section: All visitors/patients are being asked to wear a clean face mask when entering the hospital. COVID 19 Updates & Visitor Policy: Please access [email or web address] for the most updated information. Information on [facility]: Please view [email or web address] (Patient & Visitor Information) for additional details regarding Advanced Directive forms, AWARE, directions, parking information, lodging, Internet access, dining and more. Information on [facility] or [facility] [place] ([facility]): Please view [email or web address] (Patient and Visitor Information) for parking/directions and more. For MyChart information, to activate account or password recovery, please go to [email or web address] or call [phone] (toll-free: [phone]). Information for Suicide Prevention: National Suicide Prevention Lifeline (9-136- 719-ARUP (1338)). Surgery Times: For patients having surgery @ [facility], [facility] Medicine, [facility] or [facility] Surgery [place] ([facility]), if your surgeon's office has not notified you of your surgery time by NOON THE BUSINESS DAY BEFORE your surgery, please call [phone] and ask for your surgeon's office Dr. Ashley Mcmillan . RIENCE SPECIALIST documented in this encounter Plan of Treatment Not on file documented as of this encounter Procedures Procedure Name Priority Date/Time Associated Diagnosis Comments SURGICAL PATHOLOGY Routine 11/13/2022 8: 28 AM EXPERIENCE SPECIALIST Gross hematuria Lesion of bladder CYSTOSCOPY 11/13/2022 8:14 AM EXPERIENCE SPECIALIST Gross hematuria Lesion of bladder BIOPSY - BLADDER 11/13/2022 8:14 AM EXPERIENCE SPECIALIST Gross hematuria Lesion of bladder POCT GLUCOSE DEVICE Routine 11/13/2022 7 :44 AM EXPERIENCE SPECIALIST documented in this encounter Results * Surgical pathology (11/13/2022 8:28 AM EXPERIENCE SPECIALIST) Tissue (Bladder, biopsy) 11/13/2022 8:28 AM EXPERIENCE SPECIALIST Narrative PATHOLOGY W - 11/15/2022 1:07 PM EXPERIENCE SPECIALIST EPIC results best viewed via link to PDF [facility] Jessenia Mc[facility] [place] [address] Note to Patients: This report may contain [...] Gender: ??M : ??1950 (Age: 72) Address: ??[address] ??[address] Hospital #: ??[id number] Taken:11/13/2022 Received:11/13/2022 Reported: 11/15/2022 Patient Type: BWC EP SAME Client ?[facility] Service: Surgery Location: Physician(s): ??Sergio Garcia D.O. [...] interpretation for this case was performed at [facility], Department of Surgical Pathology, [address] [facility] [address], [id number], ??[facility], [place] ??[address] ?? CLIA # [id number] Linda Gallardo M.D., PhD History: The patient [...] Surgical Pathology and Flow Cytometry Departments at [facility] as part of an ongoing director of quality control program and in compliance with federally mandated [...] Surgical Pathology and Flow Cytometry Departments of [facility]. ??It has not been cleared or approved by the U. S. Food and Drug Administration. IMAGES AND SCANNED DOCUMENTS, IF INCLUDED, ONLY VIEWABLE IN PDF VERSION OF REPORT Ashley Mcmillan MD LAB PATHOLOGY ORDERABLES Final Result Performing Organization Address [facility]/ZIP Co de Phone Number PATHOLOGY [facility] [phone] * POCT glucose (11/13/2022 7:44 AM EXPERIENCE SPECIALIST) Glucose, POC 90 70 - 199 mg/dL LAURA ESPINOZA Comment: Interpretive Data Glucose is assumed to be non-fasting. Fasting Glucose reference ranges are: 0 - 150 years: ??70 mg/dL - 99 mg/dL Current interpretive data was last revised on 2014. POC Performer [id number] [facility] P[facility] Device Number [id number] [facility] Blood 11/13/2022 7:44 AM EXPERIENCE SPECIALIST 11/13/2022 7:44 AM EXPERIENCE SPECIALIST Ashley Mcmillan MD LAB POCT ORDERABLES - DE VICE Final Result Performing Organization Address [facility] Co de Phone Number [facility] [address] [facility] Department [place] [address] documented in this encounter Visit Diagnoses Diagnosis [...] AnalgesiaIndications:Pre- Emptive Analgesia Given 11/13/2022 7:42 AM EXPERIENCE SPECIALIST 1,000 mg Lactated Ringer's (LR) infusion 30 mL/hr, intravenous, Continuous, Starting on Sun11/13/22 at 0800, For 4 hours, Pre-Op, Use a 500 ml bag for End Stage Renal Disease Patients. Discontinue if fluid still running once patient arrives to floor. Rate/Dose Change 11/13/2022 8:22 AM EXPERIENCE SPECIALIST 30 mL/hr Rate/Dose Verify 11/13/2022 8:14 AM EXPERIENCE SPECIALIST 30 mL/h r New Bag 11/13/2022 7:42 AM EXPERIENCE SPECIALIST 30 mL/hr 30 mL/hr sodium chloride 0.9% irrigation As needed, Starting on Sun11/13/22 at 0831, Intra-Op Given 11/13/2022 8:31 AM EXPERIENCE SPECIALIST 3,000 mL Surgical Site documented in this encounter Discontinued Medications Medication Sig Discontinue Reason Start Date End Da te aspirin 81 mg enteric coated tabletIndications:preven tion of thrombosis Take 1 tablet (81 mg total) by mouth 2 (two) times a day Error 10/18/2021 10/25/2022 documented as of this encounter Active and Recently Administered Medications Times are shown in EXPERIENCE SPECIALIST. Scheduled Medication Order 11/11/2022 11/12/2022 11/13/2022 acetaminophen [...] Surgical 0822 (Given - Provid er: Sj Mullne CRNA) Continuous Medication Order 11/11/2022 11/12/2022 11/13/2022 [...] 11/13/2022 documented in this encounter Care Teams Head Of Sales And Marketing Relationship Specialty Start Date End Date Rl Medina DO [address] [place] [address] PCP - General 08/09/17 05/25/24 documented as of this encounter
--- OUTSIDE RECORDS SUMMARY | 2024-11-05 23:05 | XMS_ITS | Encounter Summary ---
Author Organization [facility] Address [address] [place] [address] Phone Care Team Providers Care Buyer Liaison Name Role Phone Rl Medina DO Primary Care Provider [phone] Reason for Referral * MRI/CAT/PET Scan (Routine) - Closed Specialty Diagnoses / Procedures Referred By Manisha t Referred To Contact Radiology Diagnoses Primary osteoarthritis of left knee Procedures CT Knee Left WO Contrast Fransisco Heard MD [address] [facility] [address] [place] [address] Phone: tel: fax: [address] [address] Referral ID Status Reason Start Date Expiration Date Visits Re quested Visits Authorized [id number] Closed 08/09/2021 09/08/2022 1 1 Encounter Details Date Type Department Care Team (Late st Contact Info) Description 08/09/2021 Orders Only [facility] Orthopaedic Surgery [address] [facility] Medical Office Building [address] [place] [address] Fransisco Heard MD [address] [facility] [address] [place] [address] Primary osteoarthritis of left knee [...] file Legal Sex Male 9:07 PM HOME APPLIANCE INSTALLER Gender Identity Not on file Sexual Orientation Not on file documented as of this encounter Plan of Treatment Not on file documented as of this encounter Results * CT Knee Left WO Contrast (09/28/2021 10:39 AM HOME APPLIANCE INSTALLER) Anatomical Region Laterality Modality Lower Extremities Left Computed Tomog rodrigo 09/28/2021 11:5 7 AM HOME APPLIANCE INSTALLER Impressions 09/28/2021 12:33 PM HOME APPLIANCE INSTALLER 1. Severe medial compartment predominant tricompartmental left knee osteoarthritis. Dictated by: Gabriel Zhou M.D. The radiology attending physician has personally reviewed this study, and had reviewed and/or edited this written report and agrees with it. Electronically signed by: Jin Alonso M.D. Narrative 09/28/2021 12:33 PM HOME APPLIANCE INSTALLER EXAMINATION: CT KNEE LEFT WO CONTRAST HISTORY: [...] knee documented in this encounter Care Teams Buyer Liaison Relationship Specialty Start Date End Date Rl Medina DO [address] [place] [address] PCP - General 08/09/17 05/25/24 documented as of this encounter
--- OUTSIDE RECORDS SUMMARY | 2024-11-05 23:05 | XMS_ITS | Encounter Summary ---
Author Organization [facility] Address [address] [place] [address] Care Team Providers Care Telephonic Nurse Name Role Phone Rl Medina DO Primary Care Provider Encounter Details Date Type Department Care Team (Late st Contact Info) Description 09/30/2019 1:30 PM CONSTRUCTION SUPERVISOR - 09/30/2019 4:25 PM CONSTRUCTION SUPERVISOR Surgery [facility] Operating Room [address] [place] [address] Fransisco Heard MD [address] [id number] REVISION ARTHROPLASTY TOTAL KNEE Surgery Details Date/Time [...] on file Legal Sex Male 9:07 PM CONSTRUCTION SUPERVISOR Gender Identity Not on file Sexual Orientation Not on file documented as of this encounter Last Filed Vital Signs Vital Sign Reading Time Taken Comments Blood Pressure 156/95 09/30/2019 1:40 PM CONSTRUCTION SUPERVISOR Pulse 56 09/30/2019 1:45 PM CONSTRUCTION SUPERVISOR Temperature 36.1 ??C (97 ??F) 09/30/2019 11:30 AM CONSTRUCTION SUPERVISOR Respiratory Rate 13 09/30/2019 1:45 PM CONSTRUCTION SUPERVISOR Oxygen Saturation 98% 09/30/2019 1:45 PM CONSTRUCTION SUPERVISOR Inhaled Oxygen Concentration - - Weight 86.2 kg (190 lb) 09/30/2019 11:40 AM CONSTRUCTION SUPERVISOR Height 172.7 cm (5' 8 ) 09/30/2019 11:40 AM CONSTRUCTION SUPERVISOR Body Mass Index 28.9 09/30/2019 6:56 PM CONSTRUCTION SUPERVISOR documented in this encounter Discharge Summaries * Rebecca Hennessy, CARLA - 10/01/2019 8:03 AM CST Inpatient Discharge Summary Admitting Provider: Fransisco Heard MD Discharge Provider: Fransisco Heard MD Primary Care Physician at Discharge: Rl Medina DO [phone] Admission Date: 09/30/2019 Discharge Date: 10/01/2019 Primary Discharge Diagnosis: No Principal Problem: There is no principal problem currently on the Problem List. Please update the Problem List and refresh. 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 Condition on Discharge: Stable Cosigned by Fransisco Heard MD at 10/06/2019 9:31 AM CONSTRUCTION SUPERVISOR TRUCTION SUPERVISOR TRUCTION SUPERVISOR documented in this encounter Medications at Time [...] Obtained From Patient Referral Data Referral Source Aerial Crop Duster Referral Reason Discharge Planning Prior to Admission Primary Caregiver Self Support System Spouse/Significant Other Support system contact info (name, phone, availablity) daniel-Val [phone] Home Care Services Yes Type of Home Care Services Home therapies;Nurse visit Home care service name and phone number [facility] [phone] Durable Medical Equipment None Living Arrangements Spouse/significant other (lives with ) Type of Residence Private residence Potential Discharge Needs Home Health Physical therapy;half-way Anticipated discharge level of care Private residence [...] withthe patient. Explained role and purpose of wrapper caser. Denies the use of home health in the past - a list will be provided if recommended. Patient chose [facility] to follow with RN and PT at discharge. Patient will also go home with ABF with [facility] and [facility] with a wheeled walker. 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 No Discharge Disposition Home with Home Health (PT/OT/RN);Home with DME Equipment/Provider Needs Home Provider Services Needs Identified;Home Equipment Needs Identified Home Care Agency Information Home Care Agency Name [facility] Home Care Agency Home Care Agency Contact Spoken to [facility] Agency Order Faxed to [phone] Home Equipment Information Home Equipment Provider Name [...] of care provider (see Follow Up Providers) TRUCTION SUPERVISOR * Nichole Rico MD - 10/01/2019 7:02 [...] Nichole Rico MD Adult Reconstruction Fellow Pager: [phone] TRUCTION SUPERVISOR documented in this encounter H&P Notes * Nichole Rico MD - 09/30/2019 12:50 PM CST I have reviewed the H&P, examined the patient, and endorse the findings as written. Plan of Care : Based on the above findings, I consider Hira Evans to be an acceptable risk for : Procedure(s): REVISION ARTHROPLASTY TOTAL KNEE Cosigned by Fransisco Heard MD at 09/30/2019 1:40 PM CONSTRUCTION SUPERVISOR TRUCTION SUPERVISOR TRUCTION SUPERVISOR Source Note - Kasey Guerrero SOAKER HIDES - 09/03/2019 2:55 PM CDT Images from the original note were not included. [facility] Pre[facility] Planning Preoperative Evaluation Record Evaluation type/location: CPAP [facility] Date: 09/03/19 Anesthesia Evaluation Hira Evans is [...] BP - 85 Pertinent negatives: CAD ; [place] ; CABG ; valvular heart disease; valve [...] - 10/01/2019 6:19 AM CST Rebecca Hennessy SOAKER HIDES notified RN emptied 400ml urine from urinal but pt stated he voided about 4 timesin the same urinal. 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 Post void residual was 967ml. Order to straight cath and to give urecholine. Will continue to monitor. TRUCTION SUPERVISOR documented in this encounter Miscellaneous Notes * [...] TKA protocol without verbal cues. Outcome: Completed TRUCTION SUPERVISOR * Plan of Care - Divina Alaniz [...] be discharging after work with PT today. TRUCTION SUPERVISOR * Plan of Care - Aziza Batista [...] tonight, void. Summary: Patient progressing towards goals. TRUCTION SUPERVISOR * Plan of Care - Divina Alaniz RN - 09/30/2019 7:07 PM CST Problem: Health Behavior: Goal: Understanding of discharge needs will improve Outcome: Progressing Goals: Clinical Goals for the Shift: Pain control, OOB tonight, void. Summary: Patient is progressing towards goals. TRUCTION SUPERVISOR * Op Note - Fransisco Heard MD - 09/30/2019 2:41 PM CST OPERATIVE REPORT ATTENDING SURGEON: Fransisco Heard M.D. FIRST STATE ASSESSED PROPERTIES DIRECTOR: Nichole Rico M.D. SECOND/THIRD STATE ASSESSED PROPERTIES DIRECTOR: Tabitha Jones PREOPERATIVE DIAGNOSIS: Failed right total knee arthroplasty, instability POSTOPERATIVE DIAGNOSIS: Failed right total knee arthroplasty, instability PROCEDURE: Right revision total knee arthroplasty IMPLANTS: Neurourologist: [employer]wick [employer]hew Brand: Legion Tibial component [...] complication, need for further surgery, DVT, PE, [place], stroke, and were discussed. After all questions [...] Rico was necessary for the procedure as field research assistant, because total knee replacementis a difficult procedure, requiring at least two skilled and experienced surgeons. One surgeon was necessary to help maintain exposure and assist with the use of specific total knee replacement instrumentation, while the primary surgeon performed the procedure and no qualified resident was available. TRUCTION SUPERVISOR TRUCTION SUPERVISOR * Brief Op Note - Nichole Rico MD - 09/30/2019 2:41 PM CONSTRUCTION SUPERVISOR Operative Progress Note Surgical Team: Surgeon(s) and Role: * Fransisco Heard MD - Primary * Nichole Rico MD Anesthesiologist: Edmond Barker MD ANIMAL BOUNTY HUNTER: Rafael Selby [facility] BLANKA, ANIMAL BOUNTY HUNTER; Mildred Harrison CRNA Ammonia Nitrate Operator: Giovana Masterson RN; Will Rodrigez RN Physician Set Key Driver: SREEDHAR Alcazar Scrub: Joann Hernandez RN; Grace [...] Implant Name Type Inv. Item Serial No. Neurourologist Lot No. LRB No. Used [employer] 6197-9-010 SIMPLEX P FULL DOSE RADIOPAQUE PREBLEND CEMENT BONE TOBRAMYCIN - [id number]- [id number] Bone Cement [employer] 6197-9-010 Simplex P Full Dose Radiopaque Preblend Cement Bone Tobramycin 0 [facility] [employer] [id number] Right 2 [employer]PHEW[employer]RICHCO/ORTHO [id number] FRANCINE II 15MM CONSTRAIN KNEE 5-6 INSERT ARTICULAR UHMWPE - S0 - [id number] Other - see comments [employer]ICH[employer]/ORTHO [id number] Francine Ii 15mm Constrain Knee 5-6 Insert Articular Uhmwpe 0 [employer]Ortho [id number] Right 1 [employer]ICH[employer]ORTHO [id number] LEGION 10MM SCREW KNEE 6 WEDGE FEMORAL - S0 - [id number] Other - see comments [employer]RICHCO/ORTHO [id number] Legion 10mm Screw Knee 6 Wedge Femoral 0 [employer]/Ortho Right 1 [employer]RICHCO/ORTHO [id number] LEGION CONSTRAIN KNEE RIGHT 6 COMPONENT FEMORAL OXINIUM - S0 - [id number] Other - see comments [employer]RICHCO/ORTHO [id number] Legion Constrain Knee Right 6 Component Femoral Oxinium 0 [employer]/Ortho [id number] Right 1 [employer]ORTHO [id number] LEGION 5MM ALCON STEP KNEE RIGHT MEDIAL LEFT LATERAL 5-6 WEDGE - S0 - [id number] Other - see comments [employer]RICHCO/ORTHO [id number] Legion 5mm Alcon Step Knee Right Medial Left Lateral 5-6 Wedge 0 [employer]/Ortho Right 1 [employer]RICHCO/ORTHO [id number] LEGION 15MM 160MM PRESS FIT KNEE STEM FEMORAL - S0 - [id number] Other - see comments [employer]RICHCO/ORTHO [id number] Legion 15mm 160mm Press Fit Knee Stem Femoral 0 [employer]/Ortho [id number] Right 1 [employer]RICHCO/ORTHO [id number] LEGION 10MM SCREW KNEE 6 WEDGE FEMORAL - S0 - [id number] Other - see comments [employer]/RICHCO/ORTHO [id number] Legion 10mm Screw Knee 6 Wedge Femoral 0 [employer]/Ortho [id number] Right 1 [employer]ICH[employer]/ORTHO [id number] LEGION REVISION KNEE RIGHT 5 BASEPLATE TIBIAL - S0 - [id number] Other - see comments [employer]ICH[employer]ORTHO [id number] Legion Revision Knee Right 5 Baseplate Tibial 0 [employer]/Ortho [id number] Right 1 [employer]RICHCO/ORTHO [id number] LEGION 15MM 160MM PRESS FIT KNEE STEM FEMORAL - S0 - [id number] Other - see comments [employer]/RICHCO/ORTHO [id number] Legion 15mm 160mm Press Fit Knee Stem Femoral 0 [employer]/Ortho [id number] Right 1 [employer] 6197-9-010 SIMPLEX P FULL DOSE RADIOPAQUE PREBLEND CEMENT BONE TOBRAMYCIN - [id number] [employer] 6197-9-010 Simplex P Full Dose Radiopaque Preblend Cement Bone Tobramycin [facility] Right 2 Blood/Blood Products Transfused: 0 mls Complications: None Condition on Discharge from the operating room was stable Nichole Rico MD Date: 09/30/2019 Time: 4:28 PM TRUCTION SUPERVISOR documented in this encounter Plan of Treatment Not on file documented as of this encounter Procedures Procedure Name Priority Date/Time Associated Diagnosis Comments CBC WITHOUT DIFFERENTIAL Routine 09/30/2019 9:35 PM CONSTRUCTION SUPERVISOR BASIC METABOLIC PANEL Routine 09/30/2019 9:35 PM CONSTRUCTION SUPERVISOR XR KNEE RIGHT 1 OR 2 VIEWS STAT 09/30/2019 6:07 PM CONSTRUCTION SUPERVISOR REVISION ARTHROPLASTY TOTAL KNEE 09/30/2019 1:57 PM CONSTRUCTION SUPERVISOR 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, subsequent encounter Special Needs Naima Legion TYPE AND SCREEN STAT 09/30/2019 12:00 PM CONSTRUCTION SUPERVISOR documented in this encounter Results * (ABNORMAL) CBC without differential (09/30/2019 9:35 PM CONSTRUCTION SUPERVISOR) WBC 8.5 3.8 - 9.9 K/cumm [facility] Hgb 13.9 13.0 - 17.5 g/dL [facility] Hct 40.3 38.9 - 50.3 % [facility] Plt 118(L) 150 - 400 K/cumm [facility] MPV 12.2 9.1 - 12.3 fL [facility] RBC 4.34 4.30 - 5.80 M/cumm [facility] MCV 92.9 81.3 - 96.4 fL [facility] MCH 32.0 27.1 - 33.3 pg [facility] MCHC 34.5 32.3 - 35.7 g/dL [facility] RDW CV 12.1 11.1 - 14.9 % [facility] RDW SD 42.2 35.7 - 48.1 fL [facility] NRBC abs 0.00 0.00 - 0.01 K/cumm [facility] Blood specimen (specimen) 09/30/2019 9:35 PM CONSTRUCTION SUPERVISOR 09/30/2019 10:52 PM CONSTRUCTION SUPERVISOR Nichole Rico MD LAB BLOOD ORDERABLES Final Result Performing Organization Address City/[facility]/ZIP Co de Phone Number [facility] Department [place] [address] * (ABNORMAL) Basic metabolic panel (09/30/2019 9:35 PM CONSTRUCTION SUPERVISOR) Pathologist [facility] Sodium 136 135 - 145 mmol/L [facility] Potassium, pl 4.0 3.3 - 4.9 mmol/L [facility] Chloride 101 97 - 110 mmol/L [facility] CO2 24 22 - 32 mmol/L [facility] Anion gap 11 2 - 15 mmol/L [facility] BUN 12 8 - 25 mg/dL [facility] Creatinine 0.74(L) 0.80 - 1.30 mg/dL [facility] Glucose 203(H) 70 - 199 mg/dL [facility] Comment: Interpretive Data Fasting glucose >/= [...] Calcium 8.5 8.5 - 10.3 mg/dL [facility] Blood specimen (specimen) 09/30/2019 9:35 PM CONSTRUCTION SUPERVISOR 09/30/2019 10:52 PM CONSTRUCTION SUPERVISOR Nichole Rico MD LAB BLOOD ORDERABLES Final Result Performing Organization Address [facility]/State/[facility] Co de Phone Number [facility] Department [place] [address] * XR Knee Right 1 or 2 View (09/30/2019 6:07 PM CONSTRUCTION SUPERVISOR) Anatomical Region Laterality Modality Lower Extremities, Knee Right Computed Radiography 10/01/2019 5:52 AM CONSTRUCTION SUPERVISOR Impressions 10/01/2019 5:52 AM CONSTRUCTION SUPERVISOR 1. ??Revision right total knee arthroplasty in near-anatomic position Electronically signed by: Oskar Ackerman MD, PHD Narrative 10/01/2019 5:52 AM CONSTRUCTION SUPERVISOR EXAMINATION: Right knee one or 2 views [...] * Type and screen (09/30/2019 12:00 PM CONSTRUCTION SUPERVISOR) ABO Rh O Positive LAURA CORRAL Jigna, indirect Negative LAURA CORRAL Blood specimen (specimen) 09/30/2019 12:00 PM CONSTRUCTION SUPERVISOR 09/30/2019 12:22 PM CONSTRUCTION SUPERVISOR Narrative LAURA ZARAGOZA - 09/30/2019 1:51 PM CONSTRUCTION SUPERVISOR Has the patient had Daratumumab (Darzalex) in the past 6 months?->No us Carlos Manuel Good NP LAB BLOOD BANK TEST JOSE PRUITT Final Result LAURA ZARAGOZA [facility] Department [place] [address] documented in this encounter Visit Diagnoses Diagnosis Failure of total knee replacement, initial encounter (HCC)- Primary 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 (CMS/HCC) (HCC) 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, subsequent encounter documented in this encounter Admitting Diagnoses Diagnosis 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 (CMS/[facility]) ([facility]) documented in this encounter Administered Medications Inactive [...] Vein Thrombosis Prevention Given 10/01/2019 8:15 AM CONSTRUCTION SUPERVISOR 325 mg Given 09/30/2019 8:22 PM CONSTRUCTION SUPERVISOR 325 mg benzocaine-menthol (CHLORASEPTIC) lozenge 1 lozenge 1 lozenge, mouth/throat, Every 4 hours PRN, sore throat, Starting on Sun09/30/19 at 2140 Given 10/01/2019 8:17 AM CONSTRUCTION SUPERVISOR 1 lozenge Given 09/30/2019 10:28 PM CONSTRUCTION SUPERVISOR 1 lozenge bupivacaine-EPINEPHrine (MARCAINE with EPI) 60 mL, ketorolac (TORADOL) 30 mg solution As needed, Starting on Sun09/30/19 at 1448, Intra-Op Given 09/30/2019 2:48 PM CONSTRUCTION SUPERVISOR 61 mL Surgical Site ceFAZolin (ANCEF) 1,000 mg in sodium chloride 0.9% 1,000 mL irrigation solution As needed, Starting on Sun09/30/19 at 1449, Intra-Op Given 09/30/2019 2:49 PM CONSTRUCTION SUPERVISOR 1,000 mL Surgical Site celecoxib (CeleBREX) capsule 100 mg 100 mg, oral, 2 times daily, First dose on Sun09/30/19 at 2100, Please schedule to start morning POD#1, Indications: PainIndications:Pain Given 10/01/2019 8:16 AM CONSTRUCTION SUPERVISOR 100 mg dilTIAZem XR (CARDIZEM CD,DILACOR XR) 24 hour capsule 240 mg 240 mg, oral, 2 times daily, First dose on Sun09/30/19 at 2100, Do not crush, chew, cut, dissolve, open or otherwise manipulate tablet/capsule., Indications: hypertensionIndications:hyperten hakeem Given 10/01/2019 8:16 AM CONSTRUCTION SUPERVISOR 240 mg Given 09/30/2019 10:29 PM CONSTRUCTION SUPERVISOR 240 mg famotidine (PEPCID) tablet 20 mg 20 mg, oral, 2 times daily, First dose on Sun09/30/19 at 2100, Indications: HeartburnIndications:Heartburn Given 10/01/2019 8:16 AM CONSTRUCTION SUPERVISOR 20 mg Lactated Ringer's (LR) infusion 30 mL/hr, intravenous, Continuous, Starting on Sun09/30/19 at 1215, Pre-Op New Bag 09/30/2019 3:05 PM CONSTRUCTION SUPERVISOR Rate/Dose Verify 09/30/2019 1:57 PM CONSTRUCTION SUPERVISOR New Bag 09/30/2019 12:27 PM CONSTRUCTION SUPERVISOR 30 mL/hr 30 mL/hr losartan (COZAAR) tablet 100 mg 100 mg, oral, Every morning, First dose on Sun10/01/19 at 0900, Indications: hypertensionIndications:hypertension Given 10/01/2019 8:16 AM CONSTRUCTION SUPERVISOR 100 mg mirabegron ER (MYRBETRIQ) extended release tablet 25 mg 25 mg, oral, Every morning, First dose on Sun10/01/19 at 0900, Do not crush, chew, cut, dissolve, open or otherwise manipulate tablet/capsule., Indications: Bladder HyperactivityIndications:Bladder Hyperactivity Given 10/01/2019 8:16 AM CONSTRUCTION SUPERVISOR 25 mg oxyCODONE-acetaminophen (PERCOCET) 5-325 mg per tablet 1 tablet 1 tablet, oral, Every 4 hours PRN, 1st line for pain, Starting on Sun09/30/19 at 1902, May repeat in 1 hour if pain is uncontrolled or increasing. Max 2 doses within 1 dosing interval., Indications: PainIndications:Pain Given 10/01/2019 11:30 AM CONSTRUCTION SUPERVISOR 1 tablet Given 10/01/2019 6:01 AM CONSTRUCTION SUPERVISOR 1 tablet Given 09/30/2019 8:23 PM CONSTRUCTION SUPERVISOR 1 tablet senna-docusate (PERICOLACE) 8.6-50 mg per tablet 2 tablet 2 tablet, oral, 2 times daily, First dose on Sun09/30/19 at 2100, Hold for diarrhea., Indications: constipationIndications:constipation Given 10/01/2019 8:16 AM CONSTRUCTION SUPERVISOR 2 table ts Given 09/30/2019 8:22 PM CONSTRUCTION SUPERVISOR 2 tablets sodium chloride 0.9% flush 0.5-20 mL 0.5-20 mL, intra-catheter, Every 8 hours scheduled, First dose on Sun09/30/19 at 2200, Flush volume based on line type and size. Given 10/01/2019 6:01 AM CONSTRUCTION SUPERVISOR 10 mL Given 09/30/2019 8:23 PM CONSTRUCTION SUPERVISOR 10 mL sodium chloride 0.9% infusion 100 mL/hr, intravenous, Continuous, Starting on Sun09/30/19 at 1815, Phase I & Post-op Floor New Bag 09/30/2019 7:16 PM CONSTRUCTION SUPERVISOR 100 mL/hr 100 mL/hr vancomycin (VANCOCIN) solution As needed, Starting on Sun09/30/19 at 1610, Intra-Op Given 09/30/2019 4:10 PM CONSTRUCTION SUPERVISOR 500 mg Surgical Site documented in this [...] Recently Administered Medications Times are shown in CONSTRUCTION SUPERVISOR. Scheduled Medication Order 09/29/2019 09/30/2019 10/01/2019 acetaminophen [...] Prophylaxis, Surgical 2228 (New Bag - Provider: Aziaz Batista RN)2231 (Stopped - Provider: Aziza Batista [...] 10/01/2019 documented in this encounter Care Teams Telephonic Nurse Relationship Specialty Start Date End Date Rl Medina DO [address] [place] [address] PCP - General 08/09/17 05/25/24 documented as of this encounter
--- OUTSIDE RECORDS SUMMARY | 2024-11-05 23:05 | XMS_ITS | Encounter Summary ---
Author Organization [facility] Address [address] [facility] [place] [address] Care Team Providers Care Diagnostic Medical Sonographer Name Role Phone Rl Medina DO Primary Care Provider Encounter Details Date Type Department Care Team (Late st Contact Info) Description 10/17/2021 1:36 PM UTILIZATION REVIEW COORDINATOR Anesthesia Event [facility] Operating Room [address] [place] [address] Edmond Hickey MD [address] [place] [address] Caron Valverde, CARLA [address] [facility] [id number] [place] [address] Anesthesia Record Procedure Summary Procedure Name Responsible [...] on file Legal Sex Male 9:07 PM UTILIZATION REVIEW COORDINATOR Gender Identity Not on file Sexual Orientation Not on file documented as of this encounter OR Notes * Anesthesia Postprocedure Evaluation - Edmond Hickey MD - 10/18/2021 8:08 AM CST Patient: Hira Evans Procedure Summary Date: 10/17/21 Room / Location: [facility] OPERATING ROOM [facility] OPERATING ROOM Anesthesia Start: 1336 Anesthesia Stop: [...] normothermic Nausea/Vomiting status: none No complications documented. IZATION REVIEW COORDINATOR * Anesthesia Procedure Notes - Edmond Hickey [...] patient tolerated procedure well with no complications IZATION REVIEW COORDINATOR * Anesthesia Preprocedure Evaluation - Edmond Hickey MD - 09/27/2021 10:15 AM CST Images from the original note were not included. [facility] Preoperative Evaluation Record Evaluation type/location: [facility] Planned procedure site: [facility] OR Date: 09/28/21 Anesthesia Evaluation Hira Evans is a 71 y.o. male Procedure(s): ARTHROPLASTY LEFT TOTAL KNEE - GALE ROBOTIC ARM Pre-Op Diagnosis Codes: * Primary osteoarthritis of left knee [M17.12] HISTORY HPI Hria Evans is a 69 y.o. male who [...] testing to be performed on 10/15 in [place]. [facility] will place the order for testing. [...] mg 24 hr capsule 05/12/19 -- Fidelia Predue MD irbesartan (AVAPRO) 150 mg tablet 12/10/19 -- Fidelia Perdue MD loratadine (CLARITIN) 10 mg tablet -- -- Fidelia Perdue MD MYRBETRIQ 25 mg tablet extended release 24 hr 07/08/19 -- Fidelia Perdue MD omeprazole (PriLOSEC) 20 mg capsule -- -- Fidelia Perdue MD peg [id number]-icknrqai (Visine Tired Eye Relief) 1-0.36-0.2 % drops [...] omeprazole (PriLOSEC) 20 mg capsule ??? peg 120-oznqynqomgrn-lrhhbghh (Visine Tired Eye Relief) 1-0.36-0.2 % drops [...] Medication protocol when under care of a PRESS PIPE INSPECTOR Planned anesthesia: Regional as primary anesthetic and [...] and agree to proceed. All questions answered. IZATION REVIEW COORDINATOR IZATION REVIEW COORDINATOR IZATION REVIEW COORDINATOR IZATION REVIEW COORDINATOR documented in this encounter Plan of Treatment Not on file documented as of this encounter Procedures Procedure Name Priority Date/Time Associated Diagnosis Comments NV AN PROCEDURE PLACEHOLDER Routine 10/17/2021 12:47 PM UTILIZATION REVIEW COORDINATOR documented in this encounter Results * NV AN PROCEDURE PLACEHOLDER (10/17/2021 12:47 PM UTILIZATION REVIEW COORDINATOR) Narrative Edmond Hickey MD - 10/17/2021 12:47 PM UTILIZATION REVIEW COORDINATOR Edmond Hickey MD ? 10/17/2021 12:47 PM [...] Spinal AnesthesiaIndications:Spinal Anesthesia Given 10/17/2021 12:47 PM UTILIZATION REVIEW COORDINATOR 1.8 mL ceFAZolin (ANCEF) 1 gram/10 mL in sterile water (premix) 2,000 mg 2,000 mg, intravenous, at 400 mL/hr, Administer over 3 Minutes, Once, On Sun10/17/21 at 1130, For 1 dose, Pre-Op, Administer within 60 minutes of incision., Indications: Prophylaxis, SurgicalIndications:Prophylaxis, Surgical Given 10/17/2021 1:46 PM UTILIZATION REVIEW COORDINATOR 2,000 mg dexAMETHasone (DECADRON) 4 mg/mL injection 8 mg 8 mg, intravenous, Administer over 2 Minutes, Once, On Sun10/17/21 at 1400, For 1 dose, Intra-Op, Intra-op administration., Indications: Pain Treatment AdjunctIndications:Pain Treatment Adjunct Given 10/17/2021 3:31 PM UTILIZATION REVIEW COORDINATOR 8 mg famotidine (PEPCID) injection 20 mg 20 mg, intravenous, Administer over 2 Minutes, Once as needed, heartburn, Medication to be administered by the anesthesia staff (Anesthesiologist or PRESS PIPE INSPECTOR), Starting on Sun10/17/21 at 1048, For 1 dose, Pre-Op, Indications: gastroesophageal reflux disease, Heartburn, Heartburn Prevention, RefluxIndications:gastroesophagea l reflux disease,Heartburn,Heartburn Prevention,Reflux Given 10/17/2021 1:36 PM UTILIZATION REVIEW COORDINATOR 20 mg fentaNYL (SUBLIMAZE) preservative free injection intravenous, As needed, Starting on Sun10/17/21 at 1247, Anesthesia Intra-op Given 10/17/2021 3:35 PM UTILIZATION REVIEW COORDINATOR 50 mcg Given 10/17/2021 3:21 PM UTILIZATION REVIEW COORDINATOR 50 mcg Given 10/17/2021 12:47 PM UTILIZATION REVIEW COORDINATOR 100 mcg ketorolac (TORADOL) 30 mg/mL (1 mL) injection 15 mg 15 mg, intravenous, Once, On Sun10/17/21 at 1400, For 1 dose, Intra-Op, INTRA-OP Give at time of skin closure, Indications: Postoperatvie Pain ManagementIndications:Postoperatvie Pain Management Given 10/17/2021 3:35 PM UTILIZATION REVIEW COORDINATOR 15 mg Lactated Ringer's (LR) infusion 30 mL/hr, intravenous, Continuous, Starting on Sun10/17/21 at 1130, For 4 hours, Pre-Op, Use a 500 ml bag for End Stage Renal Disease Patients. Discontinue if fluid still running once patient arrives to floor. New Bag 10/17/2021 3:40 PM UTILIZATION REVIEW COORDINATOR 30 mL/hr New Bag 10/17/2021 2:10 PM UTILIZATION REVIEW COORDINATOR 30 mL/hr Rate/Dose Verify 10/17/2021 1:36 PM UTILIZATION REVIEW COORDINATOR 30 mL/h r lidocaine (XYLOCAINE) 10 mg/mL (1 %) injection intravenous, As needed, Starting on Sun10/17/21 at 1342, Anesthesia Intra-op, Indications: Administration of Local AnesthesiaIndications:Administration of Local Anesthesia Given 10/17/2021 1:42 PM UTILIZATION REVIEW COORDINATOR 50 mg lidocaine PF (XYLOCAINE) 10 mg/mL (1 %) preservative free injection infiltration, As needed, Starting on Sun10/17/21 at 1247, Anesthesia Intra-op Given 10/17/2021 12:47 PM UTILIZATION REVIEW COORDINATOR 2 mL midazolam (VERSED) 1 mg/mL injection intravenous, As needed, Starting on Sun10/17/21 at 1247, Anesthesia Intra-op Given 10/17/2021 12:47 PM UTILIZATION REVIEW COORDINATOR 4 mg ondansetron (ZOFRAN) injection intravenous, Administer over 2 Minutes, As needed, Starting on Sun10/17/21 at 1336, Anesthesia Intra-op Given 10/17/2021 1:36 PM UTILIZATION REVIEW COORDINATOR 4 mg propofoL (DIPRIVAN) 10 mg/mL IV intravenous, As needed, Starting on Sun10/17/21 at 1342, Anesthesia Intra-op Given 10/17/2021 3:25 PM UTILIZATION REVIEW COORDINATOR 150 mg Given 10/17/2021 2:11 PM UTILIZATION REVIEW COORDINATOR 20 mg Given 10/17/2021 2:05 PM UTILIZATION REVIEW COORDINATOR 20 mg propofoL (DIPRIVAN) 10 mg/mL IV intravenous, Continuous PRN, Starting on Sun10/17/21 at 1342, Anesthesia Intra-op Rate/Dose Change 10/17/2021 2:11 PM UTILIZATION REVIEW COORDINATOR 175 mcg/kg/min 93.45 mL/hr Rate/Dose Change 10/17/2021 2:05 PM UTILIZATION REVIEW COORDINATOR 150 mcg/kg/min 80. 1 mL/hr Rate/Dose Change 10/17/2021 1:58 PM UTILIZATION REVIEW COORDINATOR 125 mcg/kg/min 66. 75 mL/hr tranexamic acid (CYKLOKAPRON) 1,000 mg/100 mL (10 mg/mL) in sodium chloride (premix) 1,000 mg 1,000 mg, intravenous, at 400 mL/hr, Administer over 15 Minutes, Once, On Sun10/17/21 at 1400, For 1 dose, Intra-Op, INTRA-OP Infuse over 10 minutes prior to skin incision, Indications: Reduction of Perioperative Blood LossIndications:Reduction of Perioperative Blood Loss Given 10/17/2021 1:36 PM UTILIZATION REVIEW COORDINATOR 1,000 mg tranexamic acid (CYKLOKAPRON) 1,000 mg/100 mL (10 mg/mL) in sodium chloride (premix) 1,000 mg 1,000 mg, intravenous, at 400 mL/hr, Administer over 15 Minutes, Once, On Sun10/17/21 at 1400, For 1 dose, Intra-Op, INTRA-OP Infuse over 10 minutes at the start of wound closure., Indications: Reduction of Perioperative Blood LossIndications:Reduction of Perioperative Blood Loss Given 10/17/2021 3:30 PM UTILIZATION REVIEW COORDINATOR 1,000 mg documented in this encounter Care Teams Diagnostic Medical Sonographer Relationship Specialty [place] [address] [place] [id number] PCP - General 08/09/17 05/25/24 documented as of this encounter
--- OUTSIDE RECORDS SUMMARY | 2024-11-05 23:05 | XMS_ITS | Encounter Summary ---
Author Organization [facility] Address [address] [address] Care Team Providers Care Front Edger Name Role Phone Rl Medina DO Primary Care Provider Reason for Visit * Reason Comments COVID-19 EVALUATION pre op Encounter Details Date Type Department Care Team (Late st Contact Info) Description 10/15/2021 2:00 PM SUPERVISOR SOLDER MAKING Office Visit [facility] [address] [id number] Pre-op testing (Primary Dx) Social [...] file Legal Sex Male 9:07 PM SUPERVISOR SOLDER MAKING Gender Identity Not on file Sexual Orientation Not on file documented as of this encounter Progress Notes * Rut Calvillo MA - 10/15/2021 2:00 PM CST Patient presents today for pre procedure COVID-19 test. N95 mask, gown, gloves, and eye protection worn during swab collection. Patient instructed to self-isolate from time of swab collection until scheduled surgery. RVISOR SOLDER MAKING documented in this encounter Plan of Treatment Not on file documented as of this encounter Visit Diagnoses Diagnosis Pre-op testing- Primary Unspecified pre-operative examination documented in this encounter Care Teams Front Edger Relationship Specialty Start Date End Date Rl Medina DO [address] [place] [address] PCP - General 08/09/17 05/25/24 documented as of this encounter
--- OUTSIDE RECORDS SUMMARY | 2024-11-05 23:05 | XMS_ITS | Encounter Summary ---
Author Organization [facility] Healthcare Address [address] [place] [address] Care Team Providers Care Testing Shaking Shipping Name Role Phone Rl Medina DO Primary Care Provider Encounter Details Date Type Department Care Team (Latest Contact Info) Description 10/17/2021 10:26 AM HAM ROLLING MACHINE OPERATOR - 10/18/2021 9:53 AM HAM ROLLING MACHINE OPERATOR Hospital Encounter [facility] [address] [id number] [place] [address] Fransisco Heard MD [address] [facility] [address] [place] [address] Primary osteoarthritis of left knee (Primary Dx) [...] on file Legal Sex Male 9:07 PM HAM ROLLING MACHINE OPERATOR Gender Identity Not on file Sexual Orientation Not on file documented as of this encounter Last Filed Vital Signs Vital Sign Reading Time Taken Comments Blood Pressure 131/80 10/18/2021 9:00 AM HAM ROLLING MACHINE OPERATOR Pulse 60 10/18/2021 9:00 AM HAM ROLLING MACHINE OPERATOR Temperature 36.5 ??C (97.7 ??F) 10/18/2021 9:00 AM CS T Respiratory Rate 20 10/18/2021 9:00 AM HAM ROLLING MACHINE OPERATOR Oxygen Saturation 97% 10/18/2021 9:00 AM HAM ROLLING MACHINE OPERATOR Inhaled Oxygen Concentration - - Weight 89 kg (196 lb 3.2 oz) 10/17/2021 10:47 AM HAM ROLLING MACHINE OPERATOR Height 172.7 cm (5' 8 ) 10/17/2021 10:47 AM HAM ROLLING MACHINE OPERATOR Body Mass Index 29.83 10/17/2021 10:47 AM HAM ROLLING MACHINE OPERATOR documented in this encounter Discharge Diagnoses Diagnosis [...] HISTORY OF MALIGNANT MELANOMA OF SKIN Other correction (current) drug therapy - OTHER FLAKE CUTTER OPERATOR (CURRENT) DRUG THERAPY 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) Personal history of nicotine dependence - PERSONAL HISTORY OF NICOTINE DEPENDENCE documented in this encounter Discharge Summaries * Vibha Taylor NP - 10/18/2021 6:50 AM CST Inpatient Discharge Summary Admitting Provider: Fransisco Heard MD Discharge Provider: Fransisco Heard MD Primary Care Physician at Discharge: Rl Medina DO [phone] Admission Date: 10/17/2021 Discharge Date: 10/18/2021 Primary [...] Relief 1-0.36-0.2 % drops Generic drug: peg [id number]-uhjgmrtk STOP taking these medications ciprofloxacin 500 mg tablet Commonly known as: CIPRO COENZYME Q10 ORAL turmeric root extract 500 mg capsule Tylenol Extra Strength 500 mg tablet Generic drug: acetaminophen Where to Get Your Medications These medications were sent to [facility] - [address] [address] aspirin 81 mg enteric coated tablet oxyCODONE-acetaminophen 5-325 mg per tablet senna-docusate 8.6-50 mg Discharge Activity: Weight bearing: Weight bearing as tolerated left lower extremity Assistive Devices: Walker or crutches for all walking DVT prophylaxis: Aspirin 81mg twice daily for 30 days Discharge Diet: Resume previous diet Follow-up: Dr. Fransisco Heard. on 11/08/2021 at 11:45am at [facility], [address] [place] [address], Medical Office Building [address], [address] [address]. Condition on Discharge: Stable Cosigned by Fransisco Heard MD at 10/18/2021 3:12 PM HAM ROLLING MACHINE OPERATOR ROLLING MACHINE OPERATOR ROLLING MACHINE OPERATOR documented in this encounter Discharge Instructions * Discharge Instr - Other Orders* Melissa Roth RN - 10/18/2021 9:16 AM HAM ROLLING MACHINE OPERATOR CM has not secured home care yet. I gave pt the Virtual PT paper work if I can not secure home carehe has agreed to virtual services thru [facility]. I will call pt to f/u. ROLLING MACHINE OPERATOR documented in this encounter Medications at [...] pain 56 tablet 10/17/2021 02/08/20 22 peg 181-xdibwvvpmupc-u lycerin 1-0.36-0.2 % dropsIndications:D ry Eye Administer [...] Fransisco Heard MD at 10/18/2021 3:13 PM HAM ROLLING MACHINE OPERATOR ROLLING MACHINE OPERATOR ROLLING MACHINE OPERATOR * Lu Maria, PT - 10/18/2021 7:00 AM CST [facility] Physical Therapy Treatment Patient Name: Hira Evans Date of Service: 10/18/2021 Date of : 1950 Age: 71 y.o. male Room: [address] Admit Date: 10/17/2021 Attending Provider: Fransisco [...] appropriately per protocol with assistance from joint middle [employer] sports coach as needed in order to safely return home by 10/19/2021. Comments: Completed ?? Plan Physical therapy frequency: Other (comment) (PT D/C) Recommended equipment to safely discharge: wheeled walker - patient already owns Recommended method of transportation at discharge: Personal vehicle with family Referrals Recommended: None Patient okay to discharge: Yes Discharge Recommendation: Home with family,Home Health PT Lu Maria, PT ROLLING MACHINE OPERATOR * Kasey Jones RN - 10/14/2021 2:46 PM CST 10/14/21 1444 Information Information Obtained From Patient Referral Data Referral Source Physician Referral Reason Discharge Planning Prior to Admission Primary Caregiver Self Support System Spouse/Significant Other Support system contact info (name, phone, availablity) /WILY Val Evans [phone] Home Care Services Yes Type of Home Care Services Home therapies;Nurse visit Durable Medical Equipment Walker (wheeled) Living Arrangements Spouse/significant other Type of Residence Private residence ROLLING MACHINE OPERATOR * Kasey Jones RN - 10/14/2021 2:44 PM CST 10/14/21 1444 Communications Patient choice (Home Health/Hospice) list given to patient/new accounts representative? Yes No HH preference ROLLING MACHINE OPERATOR documented in this encounter H&P Notes * Fransisco Heard MD - 10/17/2021 11:25 AM CST I have reviewed the H&P, examined the patient, and endorse the findings as written. Plan of Care : Based on the above findings, I consider Hira Evans to be an acceptable risk for : Procedure(s): ARTHROPLASTY LEFT TOTAL KNEE - GALE ROBOTIC ARM ROLLING MACHINE OPERATOR ROLLING MACHINE OPERATOR Source Note - Caron Valverde, THREAT MONITORING ANALYST - 09/27/2021 10:15 AM HAM ROLLING MACHINE OPERATOR Images from the original note were not included. [facility] Preoperative Assessment and Planning Preoperative Evaluation Record Evaluation type/location: CPAP [facility] Planned procedure site: [facility] OR Date: 09/28/21 Anesthesia Evaluation Hira [...] BP - 85 Pertinent negatives: CAD ; HI ; CABG ; valvular heart disease; valve [...] testing to be performed on 10/15 in [place]. [facility] will place the order for [...] capsule -- -- Fidelia Perdue MD peg 868-qcqifrcwwigr-okhqjqwq (Visine Tired Eye Relief) 1-0.36-0.2 % drops [...] omeprazole (PriLOSEC) 20 mg capsule ??? peg 678-iasjrxqkrbdu-irvcnxlc (Visine Tired Eye Relief) 1-0.36-0.2 % drops [...] for requested labs within last 720 hours. ROLLING MACHINE OPERATOR ROLLING MACHINE OPERATOR ROLLING MACHINE OPERATOR documented in this encounter Consult Notes * Lu Maria, PT - 10/17/2021 5:40 PM CST [facility] Physical Therapy Initial Evaluation Patient Name: Hira Evans Date of Service: 10/17/2021 Date of : 1950 Age: 71 y.o. male Room: [address] Admit Date: 10/17/2021 Attending Provider: Fransisco [...] appropriately per protocol with assistance from [employer] middle [employer] sports coach as needed in order to safely [...] with family,Home Health PT Lu Maria, PT ROLLING MACHINE OPERATOR documented in this encounter Miscellaneous Notes [...] impaired skin integrity will decrease Outcome: Progressing ROLLING MACHINE OPERATOR * Plan of Care - Melissa Roth RN - 10/18/2021 9:53 AM CST UNABLE TO SECURE HOME CARE FOR PT & ORDERS PLACED FOR VIRTUAL PT SERVICES WITH [facility]. PT HAS THECONSENT FORMS & I CALLED & INFORMED HIM. ROLLING MACHINE OPERATOR * Plan of Care - Melissa Roth RN - 10/18/2021 9:16 AM CST CM has not secured home care yet. I gave pt the Virtual PT paper work if I can not secure home carehe has agreed to virtual services thru [facility]. I will call pt to f/u. ROLLING MACHINE OPERATOR * Plan of Care - Ky Pickens [...] impaired skin integrity will decrease Outcome: Progressing ROLLING MACHINE OPERATOR * Plan of Care - Carey Marroquin [...] with therapy. Dinner ordered, no c/o N/V. ROLLING MACHINE OPERATOR * Perioperative Nursing Note - Cyndi Wyatt RN - 10/17/2021 4:23 PM CST VSS; MD [place] at bedside for signout; pt denies nausea; pain 5/10 with PRN pain medication; xraycomplete; bolus administered as ordered; ready to TTF; will continue to monitor; ROLLING MACHINE OPERATOR * Op Note - Fransisco Heard MD - 10/17/2021 2:04 PM CST OPERATIVE REPORT ATTENDING SURGEON: Fransisco Heard M.D. FIRST REEL FILM INSPECTOR: Laz Nolasco M.D. PREOPERATIVE DIAGNOSIS: Left knee osteoarthritis POSTOPERATIVE DIAGNOSIS: Left knee osteoarthritis PROCEDURE: Left cementless total knee arthroplasty - GALE (MAKOplasty) robotic assisted IMPLANTS: Wood Cabinet Finisher: Liliana Brand: Triathlon Tibial component size: 6 [...] Marginal osteophytes were removed and a lamina dry color mixer was utilized with the knee in 90 [...] notethat was necessary for the procedure as circulation assistant, because robotic total knee replacement is a difficult procedure, requiring at least two skilled and experienced surgeons. One surgeon was necessary to help maintain exposure and assist with the use of specific robotic total knee replacement instrumentation, while the primary surgeon performed the procedure and no qualified resident was available. ROLLING MACHINE OPERATOR ROLLING MACHINE OPERATOR ROLLING MACHINE OPERATOR * Brief Op Note - Laz Nolasco MD - 10/17/2021 2:04 PM CST Operative Progress Note Surgical Team: Surgeon(s) and Role: * Fransisco Heard MD - Primary * Laz Nolasco MD - Fellow Anesthesiologist: Edmond Hickey MD; Darrian Gonzales MD MECHANICAL ENGINEERING LECTURER: Luana Hartmann CRNA; Dana Peoples CRNA Data Conversion Analyst: Dania Barnes RN Scrub: Melvina Potter RN; Cally Nguyen RN ONLINE TRADER: Keysha Baeza RNFA; Em Biswas RN DATE [...] Implant Name Type Inv. Item Serial No. Wood Cabinet Finisher Lot No. LRB No. Used Action [employer] 5517-F-501 TRIATHLON CRUCIATE RETAIN BEAD KNEE LEFT 5 COMPONENT FEMORAL PA - SN/A - [id number] Other - see comments [employer] 5517-F-501 Triathlon Cruciate Retain BeadKnee Left 5 Component Femoral Pa N/A [employer] [id number] Left 1 Implanted [employer] 5536-B-600 TRIATHLON KNEE 6 BASEPLATE TIBIAL TRITANIUM - SN/A - [id number] Other - see comments [employer] 5536-B-600 Triathlon Knee 6 Baseplate Tibial Tritanium N/A [employer] [id number] Left 1 Implanted [employer] [id number] INSERT TIBIAL TRIATHLON 6 H10MM KNEE BEARING CONDYLAR STABILIZE STERILE - SN/A - [id number] Other - see comments [employer] [id number] Insert Tibial Triathlon 6 H10mm Knee Bearing Condylar Stabilize Sterile N/A [employer] [id number] Left 1 Implanted Blood/Blood Products Transfused: 0 mls Complications: None Condition on Discharge from the operating room was stable Laz Nolasco MD Date: 10/17/2021 Time: 3:52 PM No Resident involved on case Cosigned by Fransisco Heard MD at 10/17/2021 10:45 PM HAM ROLLING MACHINE OPERATOR ROLLING MACHINE OPERATOR ROLLING MACHINE OPERATOR documented in this encounter Plan of Treatment Not on file documented as of this encounter Procedures Procedure Name Priority Date/Time Associated Diagnosis Comments EGFR Routine 10/18/2021 4:03 AM HAM ROLLING MACHINE OPERATOR CBC WITHOUT DIFFERENTIAL Routine 10/18/2021 4:03 AM HAM ROLLING MACHINE OPERATOR BASIC METABOLIC PANEL Routine 10/18/2021 4:03 AM HAM ROLLING MACHINE OPERATOR XR KNEE LEFT 1 OR 2 VIEWS ED Urgent/IP Urgent 10/17/2021 4:12 PM HAM ROLLING MACHINE OPERATOR ARTHROPLASTY TOTAL KNEE ? GALE ROBOTIC ARM 10/17/2021 1:38 PM HAM ROLLING MACHINE OPERATOR Primary osteoarthritis of left knee Special Needs Hoods documented in this encounter Results * eGFR (10/18/2021 4:03 AM HAM ROLLING MACHINE OPERATOR) [facility] eGFR 99 mL/min/1. 73 m2 LAURA ESPINOZA [...] last reviewed 2021. Blood 10/18/2021 4:03 AM HAM ROLLING MACHINE OPERATOR 10/18/2021 4:09 AM HAM ROLLING MACHINE OPERATOR us Fransisco Heard MD LAB BLOOD ORDERABLES Final Result LAURA ESPINOZA [address] [facility] Department [place] [address] * (ABNORMAL) CBC without differential (10/18/2021 4:03 AM HAM ROLLING MACHINE OPERATOR) Pathologist [facility] WBC 9.0 3.8 - 9.9 K/cumm [facility] Hgb 13.3 13.0 - 17.5 g/dL [facility] Hct 37.9(L) 38.9 - 50.3 % [facility]NER W Plt 138(L) 150 - 400 K/cumm [facility] MPV 11.1 9.1 - 12.3 fL [facility] RBC 4.12(L) 4.30 - 5.80 M/cumm [facility] MCV 92.0 81.3 - 96.4 fL [facility] MCH 32.3 27.1 - 33.3 pg [facility] MCHC 35.1 32.3 - 35.7 g/dL [facility] RDW CV 11.7 11.1 - 14.9 % [facility] RDW SD 39.7 35.7 - 48.1 fL [facility] NRBC abs 0.00 0.00 - 0.01 K/cumm [facility] Blood 10/18/2021 4:03 AM HAM ROLLING MACHINE OPERATOR 10/18/2021 4:09 AM HAM ROLLING MACHINE OPERATOR Fransisco Heard MD LAB BLOOD ORDERABLES Final Result LAURA ESPINOZA [address] [facility] [place] [address] * (ABNORMAL) Basic metabolic panel (10/18/2021 4:03 AM HAM ROLLING MACHINE OPERATOR) Pathologist [facility] Sodium 135 135 - 145 mmol/L [facility] Potassium, pl 4.2 3.3 - 4.9 mmol/L [facility] Chloride 100 97 - 110 mmol/L [facility] CO2 26 22 - 32 mmol/L [facility] Anion gap 9 2 - 15 mmol/L [facility] BUN 14 8 - 25 mg/dL [facility] Creatinine 0.70(L) 0.80 - 1.30 mg/dL [facility] Glucose 209(H) 70 - 199 mg/dL [facility] Comment: Interpretive Data Fasting glucose >/= [...] 2017. Calcium 8.8 8.5 - 10.3 mg/dL [facility] Blood 10/18/2021 4:03 AM HAM ROLLING MACHINE OPERATOR 10/18/2021 4:09 AM HAM ROLLING MACHINE OPERATOR Fransisco Heard MD LAB BLOOD ORDERABLES Final Result [facility]MICHAEL [facility] [address] [facility]. Department [place] [address] * XR Knee Left 1 or 2 View (10/17/2021 4:12 PM HAM ROLLING MACHINE OPERATOR) Anatomical Region Laterality Modality Lower Extremities, Knee Left Computed Radiography 10/17/2021 4:16 PM HAM ROLLING MACHINE OPERATOR Impressions 10/17/2021 4:16 PM HAM ROLLING MACHINE OPERATOR 1. New two component left knee arthroplasty for osteoarthritis. Electronically signed by: Hood Kaur M.D. Narrative 10/17/2021 4:16 PM HAM ROLLING MACHINE OPERATOR EXAMINATION: XR KNEE LEFT 1 OR 2 [...] 1800, Indications: PainIndications:Pain Given 10/17/2021 11:33 PM HAM ROLLING MACHINE OPERATOR 1,000 mg Given 10/17/2021 6:49 PM HAM ROLLING MACHINE OPERATOR 1,000 mg acetaminophen (TYLENOL) tablet 650 mg 650 mg, oral, Once, On Sun10/17/21 at 1130, For 1 dose, Pre-Op, Indications: PainIndications:Pain Given 10/17/2021 11:26 AM HAM ROLLING MACHINE OPERATOR 650 mg acyclovir (ZOVIRAX) capsule 400 mg 400 mg, oral, 2 times daily, First dose on Sun10/17/21 at 2100, Indications: Chronic SuppressionIndications:Chronic Suppression Given 10/18/2021 8:55 AM HAM ROLLING MACHINE OPERATOR 4 00 mg Given 10/17/2021 8:06 PM HAM ROLLING MACHINE OPERATOR 400 mg aspirin chewable tablet 81 mg 81 mg, oral, 2 times daily, First dose on Sun10/17/21 at 2100, Start first dose POD#0 at 2100, Indications: Deep Vein Thrombosis PreventionIndications:Deep Vein Thrombosis Prevention Given 10/18/2021 8:55 AM HAM ROLLING MACHINE OPERATOR 81 mg Given 10/17/2021 8:06 PM HAM ROLLING MACHINE OPERATOR 81 mg ceFAZolin (ANCEF) 2,000 mg/20 mL in sterile water (premix) 2,000 mg 2,000 mg, intravenous, at 400 mL/hr, Administer over 3 Minutes, Every 8 hours, First dose on Sun10/17/21 at 2200, For 2 doses, Beginning 8 hours after last ruben-operative dose., Indications: Prophylaxis, SurgicalIndications:Prophylaxis, Surgical Given 10/18/2021 6:09 AM HAM ROLLING MACHINE OPERATOR 2,000 mg 400 mL/hr Given 10/17/2021 11:33 PM HAM ROLLING MACHINE OPERATOR 2,000 mg 400 mL/hr celecoxib (CeleBREX) capsule 100 mg 100 mg, oral, 2 times daily, First dose on Sun10/18/21 at 0900, Please schedule to start morning POD#1, Indications: PainIndications:Pain Given 10/18/2021 8:55 AM HAM ROLLING MACHINE OPERATOR 100 mg cholecalciferol (VITAMIN D-3) capsule 10,000 Units 10,000 Units, oral, Every morning, First dose on Sun10/18/21 at 0900, Indications: Vitamin D DeficiencyIndications:Vitamin D Deficiency Given 10/18/2021 8:57 AM HAM ROLLING MACHINE OPERATOR 10,000 Units dilTIAZem XR (CARDIZEM CD,DILACOR XR) 24 hour capsule 240 mg 240 mg, oral, 2 times daily, First dose on Sun10/17/21 at 2100, Do not crush, chew, cut, dissolve, open or otherwise manipulate tablet/capsule., Indications: hypertensionIndications:hypertension Given 10/18/2021 8:55 AM HAM ROLLING MACHINE OPERATOR 240 mg Given 10/17/2021 8:06 PM HAM ROLLING MACHINE OPERATOR 240 mg famotidine (PEPCID) tablet 20 mg 20 mg, oral, 2 times daily, First dose on Sun10/17/21 at 2100, Indications: HeartburnIndications:Heartburn Given 10/18/2021 8:55 AM HAM ROLLING MACHINE OPERATOR 20 mg Given 10/17/2021 8:06 PM HAM ROLLING MACHINE OPERATOR 20 mg HYDROmorphone (DILAUDID) injection 0.2 mg [...] with Opioid Tolerance Given 10/17/2021 5:05 PM HAM ROLLING MACHINE OPERATOR 0.2 mg Given 10/17/2021 4:33 PM HAM ROLLING MACHINE OPERATOR 0.2 mg Given 10/17/2021 4:25 PM HAM ROLLING MACHINE OPERATOR 0.2 mg irbesartan (AVAPRO) tablet 300 mg 300 mg, oral, Every morning, First dose on Sun10/18/21 at 0900, Indications: hypertensionIndications:hypertension Given 10/18/2021 8:57 AM HAM ROLLING MACHINE OPERATOR 300 mg ketorolac (TORADOL) 15 mg/mL injection 15 mg 15 mg, intravenous, Every 6 hours, First dose on Sun10/17/21 at 2100, For 2 doses, For Adult IV push, administer over 15 seconds, Indications: PainIndications:Pain Given 10/18/2021 3:53 AM HAM ROLLING MACHINE OPERATOR 15 mg Given 10/17/2021 8:06 PM HAM ROLLING MACHINE OPERATOR 15 mg Lactated Ringer's (LR) bolus 1,000 mL 1,000 mL, intravenous, Once, On Sun10/17/21 at 1130, For 1 dose, Pre-Op New Bag 10/17/2021 11:25 AM HAM ROLLING MACHINE OPERATOR 1,000 mL Lactated Ringer's (LR) bolus 1,000 mL 1,000 mL, intravenous, at 1,000 mL/hr, Administer over 1 Hours, Once, On Sun10/17/21 at 1630, For 1 dose, TO BE GIVEN IN PACU New Bag 10/17/2021 4:16 PM HAM ROLLING MACHINE OPERATOR 1,000 mL 1000 mL/hr Lactated Ringer's (LR) infusion 30 mL/hr, intravenous, Continuous, Starting on Sun10/17/21 at 1130, For 4 hours, Pre-Op, Use a 500 ml bag for End Stage Renal Disease Patients. Discontinue if fluid still running once patient arrives to floor. New Bag 10/17/2021 3:40 PM HAM ROLLING MACHINE OPERATOR 30 mL/hr New Bag 10/17/2021 2:10 PM HAM ROLLING MACHINE OPERATOR 30 mL/hr Rate/Dose Verify 10/17/2021 1:36 PM HAM ROLLING MACHINE OPERATOR 30 mL/h r loratadine (CLARITIN) tablet 10 mg 10 mg, oral, Every morning, First dose on Sun10/18/21 at 0900, Indications: Allergic RhinitisIndications:Allergic Rhinitis Given 10/18/2021 8:57 AM HAM ROLLING MACHINE OPERATOR 10 mg mirabegron ER (MYRBETRIQ) extended release tablet 25 mg 25 mg, oral, Every morning, First dose on Sun10/18/21 at 0900, Do not crush, chew, cut, dissolve, open or otherwise manipulate tablet/capsule., Indications: Bladder HyperactivityIndications:Bladder Hyperactivity Given 10/18/2021 8:55 AM HAM ROLLING MACHINE OPERATOR 25 mg ondansetron (ZOFRAN) injection 4 mg [...] interval., Indications: PainIndications:Pain Given 10/18/2021 6:09 AM HAM ROLLING MACHINE OPERATOR 1 tablet polyvinyl alcohol-povidone (REFRESH CLASSIC) 1.4-0.6 % ophthalmic solution 1 drop 1 drop, each eye, Daily, First dose on Sun10/18/21 at 0900 Given 10/18/2021 8:57 AM HAM ROLLING MACHINE OPERATOR 1 drop senna-docusate (PERICOLACE) 8.6-50 mg per tablet 2 tablet 2 tablet, oral, 2 times daily, First dose on Sun10/17/21 at 2100, Hold for diarrhea., Indications: constipationIndications:constipation Given 10/18/2021 8:54 AM HAM ROLLING MACHINE OPERATOR 2 table ts Given 10/17/2021 8:06 PM HAM ROLLING MACHINE OPERATOR 2 tablets sodium chloride 0.9% flush 0.5-20 mL 0.5-20 mL, intra-catheter, Every 8 hours scheduled, First dose on Sun10/17/21 at 2200, Flush volume based on line type and size. Given 10/18/2021 6:09 AM HAM ROLLING MACHINE OPERATOR 5 mL Given 10/17/2021 11:33 PM HAM ROLLING MACHINE OPERATOR 5 mL sodium chloride 0.9% infusion 100 mL/hr, intravenous, Continuous, Starting on Sun10/17/21 at 1815 New Bag 10/17/2021 6:31 PM HAM ROLLING MACHINE OPERATOR 100 mL/hr 100 mL/hr documented in this [...] Recently Administered Medications Times are shown in HAM ROLLING MACHINE OPERATOR. Scheduled Medication Order 10/16/2021 10/17/2021 10/18/2021 acetaminophen (TYLENOL) tablet 1,000 mg (CANCELED) 1,000 mg, oral, Every 6 hours scheduled, First dose on Sun10/17/21 at 1800, Indications: Pain 1849 (Given - Provider: Carey Marroquin RN)7383 (Given - Provider: Ky Pickens RN) 0609 [...] administered by the anesthesia staff (Anesthesiologist or MECHANICAL ENGINEERING LECTURER), Starting on Sun10/17/21 at 1048, For 1 [...] disintegrating tablet 4 mg 1 10/17/2021 peg 923-yhbcwvdzsene-bdtzboz n 1-0.36-0.2 % drops 1 drop 1 [...] 10/18/2021 documented in this encounter Care Teams Testing Shaking Shipping Relationship Specialty Start Date End Date Rl Medina DO [address] [place] [address] PCP - General 08/09/17 05/25/24 documented as of this encounter
--- OUTSIDE RECORDS SUMMARY | 2024-11-05 23:05 | XMS_ITS | Encounter Summary ---
Author Organization [facility] Care Team Providers Care Senior Operations Analyst Name Role Phone Rl Medina DO [...] file Legal Sex Male 9:07 PM SUPERVISOR METAL FURNITURE FABRICATION Gender Identity Not on file Sexual Orientation Not on file documented as of this encounter Plan of Treatment Not on file documented as of this encounter Visit Diagnoses Not on filedocumented in this encounter Care Teams Senior Operations Analyst Relationship Specialty [place] [address] [place] [id number] PCP - General 08/09/17 05/25/24 documented as of this encounter
--- OUTSIDE RECORDS SUMMARY | 2024-11-05 23:05 | XMS_ITS | Encounter Summary ---
Author Organization [facility] Healthcare Address [address] [place] [address] Care Team Providers Care Machine Carton Marker Name Role Phone Krunal Medinarodrigo WashburnBernie RUIZ Primary Care Provider Encounter Details Date Type Department Care Team (Late st Contact Info) Description 10/17/2021 12:55 PM GEOPHYSICAL MANAGER - 10/17/2021 3:30 PM GEOPHYSICAL MANAGER Surgery [facility] Operating Room [address] [place] [address] Fransisco Heard MD [address] [place] [address] ARTHROPLASTY LEFT TOTAL KNEE ? GALE ROBOTIC ARM Surgery Details Date/Time Status Location OR Service Patient Class Case Class Case Type Trauma Case? 10/17/2021 12:55 PM Posted [facility] OR Orthopaedics Outpatient in Bed [...] on file Legal Sex Male 9:07 PM GEOPHYSICAL MANAGER Gender Identity Not on file Sexual Orientation Not on file documented as of this encounter Last Filed Vital Signs Vital Sign Reading Time Taken Comments Blood Pressure 116/56 10/17/2021 1:35 PM GEOPHYSICAL MANAGER Pulse 50 10/17/2021 1:35 PM GEOPHYSICAL MANAGER Temperature 36.4 ??C (97.52 ??F) 10/17/2021 1:[address] Respiratory Rate 54 10/17/2021 1:35 PM GEOPHYSICAL MANAGER Oxygen Saturation 100% 10/17/2021 1:35 PM GEOPHYSICAL MANAGER Inhaled Oxygen Concentration - - Weight 89 kg (196 lb 3.2 oz) 10/17/2021 10:47 AM GEOPHYSICAL MANAGER Height 172.7 cm (5' 8 ) 10/17/2021 10:47 AM GEOPHYSICAL MANAGER Body Mass Index 29.83 10/17/2021 10:47 AM GEOPHYSICAL MANAGER documented in this encounter Discharge Summaries * Vibha Taylor NP - 10/18/2021 6:50 AM CST Inpatient Discharge Summary Admitting Provider: Fransisco Heard MD Discharge Provider: Fransisco Heard MD Primary Care Physician at Discharge: Rl Medina DO [phone] Admission Date: 10/17/2021 Discharge Date: 10/18/2021 Primary [...] Relief 1-0.36-0.2 % drops Generic drug: peg 580-mpjcipnbetbf-ndpldxcb STOP taking these medications ciprofloxacin 500 mg tablet Commonly known as: CIPRO COENZYME Q10 ORAL turmeric root extract 500 mg capsule Tylenol Extra Strength 500 mg tablet Generic drug: acetaminophen Where to Get Your Medications These medications were sent to [facility] [address] [address] [facility] [address] [facility] [address] aspirin 81 mg enteric coated tablet oxyCODONE-acetaminophen 5-325 mg per tablet senna-docusate 8.6-50 mg Discharge Activity: Weight bearing: Weight bearing as tolerated left lower extremity Assistive Devices: Walker or crutches for all walking DVT prophylaxis: Aspirin 81mg twice daily for 30 days Discharge Diet: Resume previous diet Follow-up: Dr. Fransisco Heard. on 11/08/2021 at 11:45am at [facility], [address] [place] [address], Medical Office Building [address], [address] [address]. Condition on Discharge: Stable Cosigned by Fransisco Heard MD at 10/18/2021 3:12 PM GEOPHYSICAL MANAGER HYSICAL MANAGER HYSICAL MANAGER documented in this encounter Discharge Instructions * Discharge Instr - Other Orders* Melissa Roth RN - 10/18/2021 9:16 AM GEOPHYSICAL MANAGER has not secured home care yet. I gave pt the Virtual PT paper work if I can not secure home carehe has agreed to virtual services thru [facility]. I will call pt to f/u. HYSICAL MANAGER documented in this encounter Medications at [...] 25 mg tablet extended release 24 hrIndications:Blad asai Hyperactivity Take 1 tablet (25 mg total) [...] pain 56 tablet 10/17/2021 02/08/20 22 peg 471-dpkxcyinnesv-t lycerin 1-0.36-0.2 % dropsIndications:D ry Eye Administer [...] Fransisco Heard MD at 10/18/2021 3:13 PM GEOPHYSICAL MANAGER HYSICAL MANAGER HYSICAL MANAGER * Lu Maria, PT - 10/18/2021 7:00 AM CST [facility] Physical Therapy Treatment Patient Name: Hira Evans Date of Service: 10/18/2021 Date of : 1950 Age: 71 y.o. male Room: [address] Admit Date: 10/17/2021 Attending Provider: Fransisco [...] appropriately per protocol with assistance from joint trampoline team coach as needed in order to safely return home by 10/19/2021. Comments: Completed ?? Plan Physical therapy frequency: Other (comment) (PT D/C) Recommended equipment to safely discharge: wheeled walker - patient already owns Recommended method of transportation at discharge: Personal vehicle with family Referrals Recommended: None Patient okay to discharge: Yes Discharge Recommendation: Home with family,Home Health PT Lu Maria PT HYSICAL MANAGER * Kasey Jones RN - 10/14/2021 2:46 PM CST 10/14/21 1444 Information Information Obtained From Patient Referral Data Referral Source Physician Referral Reason Discharge Planning Prior to Admission Primary Caregiver Self Support System Spouse/Significant Other Support system contact info (name, phone, availablity) /WILY Val Evans [phone] Home Care Services Yes Type of Home Care Services Home therapies;Nurse visit Durable Medical Equipment Walker (wheeled) Living Arrangements Spouse/significant other Type of Residence Private residence HYSICAL MANAGER * Kasey Jones RN - 10/14/2021 2:44 PM CST 10/14/21 1444 Communications Patient choice (Home Health/Hospice) list given to patient/healthcare sales representative? Yes No HH preference HYSICAL MANAGER documented in this encounter H&P Notes * Fransisco Heard MD - 10/17/2021 11:25 AM CST I have reviewed the H&P, examined the patient, and endorse the findings as written. Plan of Care : Based on the above findings, I consider Hira Evans to be an acceptable risk for : Procedure(s): ARTHROPLASTY LEFT TOTAL KNEE - GALE ROBOTIC ARM HYSICAL MANAGER HYSICAL MANAGER Source Note - Caron Valverde NP - 09/27/2021 10:15 AM GEOPHYSICAL MANAGER Images from the original note were not included. Center for Preoperative Assessment and Planning Preoperative Evaluation Record Evaluation type/location: [facility] Planned procedure site: [facility]ALTH [facility] OR Date: 09/28/21 Anesthesia Evaluation Hira Evans [...] BP - 85 Pertinent negatives: CAD ; VA ; CABG ; valvular heart disease; valve [...] testing to be performed on 10/15 in [place]. [facility] will place the [...] capsule -- -- Fidelia Perdue MD peg 095-nqqzaaduljlk-ddzvfwxk (Visine Tired Eye Relief) 1-0.36-0.2 % drops [...] omeprazole (PriLOSEC) 20 mg capsule ??? peg 380-pucyxooxwnra-kiupdoph (Visine Tired Eye Relief) 1-0.36-0.2 % drops [...] for requested labs within last 720 hours. HYSICAL MANAGER HYSICAL MANAGER HYSICAL MANAGER documented in this encounter Consult Notes * Lu Maria, PT - 10/17/2021 5:40 PM CST [facility] Physical Therapy Initial Evaluation Patient Name: Hira Evans Date of Service: 10/17/2021 Date of : 1950 Age: 71 y.o. male Room: [address] Admit Date: 10/17/2021 Attending Provider: Fransisco [...] appropriately per protocol with assistance from joint trampoline team coach as needed in order to safely [...] with family,Home Health PT Lu Maria, PT HYSICAL MANAGER documented in this encounter Miscellaneous Notes [...] impaired skin integrity will decrease Outcome: Progressing HYSICAL MANAGER * Plan of Care - Melissa Roth RN - 10/18/2021 9:53 AM CST UNABLE TO SECURE HOME CARE FOR PT & ORDERS PLACED FOR VIRTUAL PT SERVICES WITH [facility]. PT HAS THECONSENT FORMS & I CALLED & INFORMED HIM. HYSICAL MANAGER * Plan of Care - Melissa Roth RN - 10/18/2021 9:16 AM CST CM has not secured home care yet. I gave pt the Virtual PT paper work if I can not secure home carehe has agreed to virtual services thru [facility]. I will call pt to f/u. HYSICAL MANAGER * Plan of Care - Ky Pickens [...] impaired skin integrity will decrease Outcome: Progressing HYSICAL MANAGER * Plan of Care - Carey Marroquin [...] with therapy. Dinner ordered, no c/o N/V. HYSICAL MANAGER * Perioperative Nursing Note - Cyndi Wyatt RN - 10/17/2021 4:23 PM CST VSS; MD [place] at bedside for signout; pt denies nausea; pain 5/10 with PRN pain medication; xraycomplete; bolus administered as ordered; ready to TTF; will continue to monitor; HYSICAL MANAGER * Op Note - Fransisco Heard MD - 10/17/2021 2:04 PM CST OPERATIVE REPORT ATTENDING SURGEON: Fransisco Heard M.D. FIRST MEAT HANGER: Laz Nolasco M.D. PREOPERATIVE DIAGNOSIS: Left knee osteoarthritis POSTOPERATIVE DIAGNOSIS: Left knee osteoarthritis PROCEDURE: Left cementless total knee arthroplasty - GALE (MAKOplasty) robotic assisted IMPLANTS: Machine Sorter: Hubbard Brand: Triathlon Tibial component size: 6 Femoral [...] Marginal osteophytes were removed and a lamina chef instructor was utilized with the knee in 90 [...] notethat was necessary for the procedure as assistant director, because robotic total knee replacement is a difficult procedure, requiring at least two skilled and experienced surgeons. One surgeon was necessary to help maintain exposure and assist with the use of specific robotic total knee replacement instrumentation, while the primary surgeon performed the procedure and no qualified resident was available. HYSICAL MANAGER HYSICAL MANAGER HYSICAL MANAGER * Brief Op Note - Laz Nolasco MD - 10/17/2021 2:04 PM CST Operative Progress Note Surgical Team: Surgeon(s) and Role: * Fransisco Heard MD - Primary * Laz Nolasco MD - Fellow Anesthesiologist: Edmond Hickey MD; Darrian Gonzales MD DRILL GRINDER: Luana Hartmann CRNA; Dana Peoples CRNA Greek Professor: Dania Barnes RN Scrub: Melvina Potter RN; Cally Nguyen RN GEOPHYSICAL PROSPECTING SURVEYOR: Keysha Baeza RNFA; Em Biswas RN DATE [...] Implant Name Type Inv. Item Serial No. Machine Sorter Lot No. LRB No. Used Action [employer] 5517-F-501 TRIATHLON CRUCIATE RETAIN BEAD KNEE LEFT 5 COMPONENT FEMORAL PA - SN/A - [id number] Other - see comments [employer] 5517-F-501 Triathlon Cruciate Retain BeadKnee Left 5 Component Femoral Pa N/A [employer] [id number] Left 1 Implanted [employer] 5536-B-600 TRIATHLON KNEE 6 BASEPLATE TIBIAL TRITANIUM - SN/A - [id number] Other - see comments [employer] 5536-B-600 Triathlon Knee 6 Baseplate Tibial Tritanium N/A [employer] [id number] Left 1 Implanted [employer] 0943-K-[id number] INSERT TIBIAL TRIATHLON 6 H10MM KNEE BEARING CONDYLAR STABILIZE STERILE - SN/A - [id number] Other - see comments [employer] 3799-D-525-[id number] Insert Tibial Triathlon 6 H10mm Knee Bearing Condylar Stabilize Sterile N/A [employer] [id number] Left 1 Implanted Blood/Blood Products Transfused: 0 mls Complications: None Condition on Discharge from the operating room was stable Laz Nolasco MD Date: 10/17/2021 Time: 3:52 PM No Resident involved on case Cosigned by Fransisco Heard MD at 10/17/2021 10:45 PM GEOPHYSICAL MANAGER HYSICAL MANAGER HYSICAL MANAGER documented in this encounter Plan of Treatment Not on file documented as of this encounter Procedures Procedure Name Priority Date/Time Associated Diagnosis Comments EGFR Routine 10/18/2021 4:03 AM GEOPHYSICAL MANAGER CBC WITHOUT DIFFERENTIAL Routine 10/18/2021 4:03 AM GEOPHYSICAL MANAGER BASIC METABOLIC PANEL Routine 10/18/2021 4:03 AM GEOPHYSICAL MANAGER XR KNEE LEFT 1 OR 2 VIEWS ED Urgent/IP Urgent 10/17/2021 4:12 PM GEOPHYSICAL MANAGER ARTHROPLASTY TOTAL KNEE ? GALE ROBOTIC ARM 10/17/2021 1:38 PM GEOPHYSICAL MANAGER Primary osteoarthritis of left knee Special Needs Hoods documented in this encounter Results * eGFR (10/18/2021 4:03 AM GEOPHYSICAL MANAGER) eGFR 99 mL/min/1. 73 m2 [facility] [...] last reviewed 2021. Blood 10/18/2021 4:03 AM GEOPHYSICAL MANAGER 10/18/2021 4:09 AM GEOPHYSICAL MANAGER us Fransisco Heard MD LAB BLOOD ORDERABLES Final Result [facility] [address] [facility]. Department [place] [place] [address] * (ABNORMAL) CBC without differential (10/18/2021 4:03 AM GEOPHYSICAL MANAGER) Pathologist [facility] WBC 9.0 3.8 - 9.9 K/cumm [facility] Hgb 13.3 13.0 - 17.5 g/dL [facility] Hct 37.9(L) 38.9 - 50.3 % [facility] Plt 138(L) 150 - 400 K/cumm [facility] MPV 11.1 9.1 - 12.3 fL [facility] RBC 4.12(L) 4.30 - 5.80 M/cumm [facility] MCV 92.0 81.3 - 96.4 fL [facility] MCH 32.3 27.1 - 33.3 pg [facility] MCHC 35.1 32.3 - 35.7 g/dL [facility] RDW CV 11.7 11.1 - 14.9 % [facility] RDW SD 39.7 35.7 - 48.1 fL [facility] NRBC abs 0.00 0.00 - 0.01 K/cumm [facility] Blood 10/18/2021 4:03 AM GEOPHYSICAL MANAGER 10/18/2021 4:09 AM GEOPHYSICAL MANAGER Fransisco Heard MD LAB BLOOD ORDERABLES Final Result [facility] [address] [facility] Department of Laboratories [place], [place] [id number] * (ABNORMAL) Basic metabolic panel (10/18/2021 4:03 AM GEOPHYSICAL MANAGER) Pathologist [facility] Sodium 135 135 - 145 mmol/L [facility] Potassium, pl 4.2 3.3 - 4.9 mmol/L [facility] Chloride 100 97 - 110 mmol/L [facility] CO2 26 22 - 32 mmol/L [facility] Anion gap 9 2 - 15 mmol/L [facility] BUN 14 8 - 25 mg/dL [facility] Creatinine 0.70(L) 0.80 - 1.30 mg/dL [facility] Glucose 209(H) 70 - 199 mg/dL [facility] Comment: Interpretive Data Fasting glucose [...] Calcium 8.8 8.5 - 10.3 mg/dL [facility] Blood 10/18/2021 4:03 AM GEOPHYSICAL MANAGER 10/18/2021 4:09 AM GEOPHYSICAL MANAGER us Fransisco Heard MD LAB BLOOD ORDERABLES Final Result Performing Organization Address City/State/[facility] [place] Phone Number [facility] [address] [facility] Department [place] [place] [address] * XR Knee Left 1 or 2 View (10/17/2021 4:12 PM GEOPHYSICAL MANAGER) Anatomical Region Laterality Modality Lower Extremities, Knee Left Computed Radiography 10/17/2021 4:16 PM GEOPHYSICAL MANAGER Impressions 10/17/2021 4:16 PM GEOPHYSICAL MANAGER 1. New two component left knee arthroplasty for osteoarthritis. Electronically signed by: Hood Kaur M.D. Narrative 10/17/2021 4:16 PM GEOPHYSICAL MANAGER EXAMINATION: XR KNEE LEFT 1 OR 2 [...] 1800, Indications: PainIndications:Pain Given 10/17/2021 11:33 PM GEOPHYSICAL MANAGER 1,000 mg Given 10/17/2021 6:49 PM GEOPHYSICAL MANAGER 1,000 mg acetaminophen (TYLENOL) tablet 650 mg 650 mg, oral, Once, On Sun10/17/21 at 1130, For 1 dose, Pre-Op, Indications: PainIndications:Pain Given 10/17/2021 11:26 AM GEOPHYSICAL MANAGER 650 mg acyclovir (ZOVIRAX) capsule 400 mg 400 mg, oral, 2 times daily, First dose on Sun10/17/21 at 2100, Indications: Chronic SuppressionIndications:Chronic Suppression Given 10/18/2021 8:55 AM GEOPHYSICAL MANAGER 4 00 mg Given 10/17/2021 8:06 PM GEOPHYSICAL MANAGER 400 mg aspirin chewable tablet 81 mg 81 mg, oral, 2 times daily, First dose on Sun10/17/21 at 2100, Start first dose POD#0 at 2100, Indications: Deep Vein Thrombosis PreventionIndications:Deep Vein Thrombosis Prevention Given 10/18/2021 8:55 AM GEOPHYSICAL MANAGER 81 mg Given 10/17/2021 8:06 PM GEOPHYSICAL MANAGER 81 mg bupivacaine 0.5%-EPINEPHrine 1:200,000 PF 60 mL and ketorolac 15 mg solution As needed, Starting on Sun10/17/21 at 1522, Intra-Op Given 10/17/2021 3:22 PM GEOPHYSICAL MANAGER 60.5 mL Surgical Site ceFAZolin (ANCEF) 2,000 mg/20 mL in sterile water (premix) 2,000 mg 2,000 mg, intravenous, at 400 mL/hr, Administer over 3 Minutes, Every 8 hours, First dose on Sun10/17/21 at 2200, For 2 doses, Beginning 8 hours after last ruben-operative dose., Indications: Prophylaxis, SurgicalIndications:Prophyl axis, Surgical Given 10/18/2021 6:09 AM GEOPHYSICAL MANAGER 2,000 mg 400 mL/hr Given 10/17/2021 11:33 PM GEOPHYSICAL MANAGER 2,000 mg 400 mL/hr ceFAZolin (ANCEF) 3,000 mg in sodium chloride 0.9% 3,000 mL irrigation solution 3,000 mg, irrigation, Once, On Sun10/17/21 at 1400, For 1 dose, Intra-Op, Have ready for intra-op administration. Given 10/17/2021 2:15 PM GEOPHYSICAL MANAGER 3,000 mg Surgical Site celecoxib (CeleBREX) capsule 100 mg 100 mg, oral, 2 times daily, First dose on Sun10/18/21 at 0900, Please schedule to start morning POD#1, Indications: PainIndications:Pain Given 10/18/2021 8:55 AM GEOPHYSICAL MANAGER 100 mg cholecalciferol (VITAMIN D-3) capsule 10,000 Units 10,000 Units, oral, Every morning, First dose on Sun10/18/21 at 0900, Indications: Vitamin D DeficiencyIndications:Vitamin D Deficiency Given 10/18/2021 8:57 AM GEOPHYSICAL MANAGER 10,000 Units dilTIAZem XR (CARDIZEM CD,DILACOR XR) 24 hour capsule 240 mg 240 mg, oral, 2 times daily, First dose on Sun10/17/21 at 2100, Do not crush, chew, cut, dissolve, open or otherwise manipulate tablet/capsule., Indications: hypertensionIndications:hypert ension Given 10/18/2021 8:55 AM GEOPHYSICAL MANAGER 240 mg Given 10/17/2021 8:06 PM GEOPHYSICAL MANAGER 240 mg famotidine (PEPCID) tablet 20 mg 20 mg, oral, 2 times daily, First dose on Sun10/17/21 at 2100, Indications: HeartburnIndications:Heartburn Given 10/18/2021 8:55 AM GEOPHYSICAL MANAGER 20 mg Given 10/17/2021 8:06 PM GEOPHYSICAL MANAGER 20 mg HYDROmorphone (DILAUDID) injection 0.2 mg [...] with Opioid Tolerance Given 10/17/2021 5:05 PM GEOPHYSICAL MANAGER 0.2 mg Given 10/17/2021 4:33 PM GEOPHYSICAL MANAGER 0.2 mg Given 10/17/2021 4:25 PM GEOPHYSICAL MANAGER 0.2 mg irbesartan (AVAPRO) tablet 300 mg 300 mg, oral, Every morning, First dose on Sun10/18/21 at 0900, Indications: hypertensionIndications:hypertension Given 10/18/2021 8:57 AM GEOPHYSICAL MANAGER 300 mg ketorolac (TORADOL) 15 mg/mL injection 15 mg 15 mg, intravenous, Every 6 hours, First dose on Sun10/17/21 at 2100, For 2 doses, For Adult IV push, administer over 15 seconds, Indications: PainIndications:Pain Given 10/18/2021 3:53 AM GEOPHYSICAL MANAGER 15 mg Given 10/17/2021 8:06 PM GEOPHYSICAL MANAGER 15 mg Lactated Ringer's (LR) bolus 1,000 mL 1,000 mL, intravenous, Once, On Sun10/17/21 at 1130, For 1 dose, Pre-Op New Bag 10/17/2021 11:25 AM GEOPHYSICAL MANAGER 1,000 mL Lactated Ringer's (LR) bolus 1,000 mL 1,000 mL, intravenous, at 1,000 mL/hr, Administer over 1 Hours, Once, On Sun10/17/21 at 1630, For 1 dose, TO BE GIVEN IN PACU New Bag 10/17/2021 4:16 PM GEOPHYSICAL MANAGER 1,000 mL 1000 mL/hr Lactated Ringer's (LR) infusion 30 mL/hr, intravenous, Continuous, Starting on Sun10/17/21 at 1130, For 4 hours, Pre-Op, Use a 500 ml bag for End Stage Renal Disease Patients. Discontinue if fluid still running once patient arrives to floor. New Bag 10/17/2021 3:40 PM GEOPHYSICAL MANAGER 30 mL/hr New Bag 10/17/2021 2:10 PM GEOPHYSICAL MANAGER 30 mL/hr Rate/Dose Verify 10/17/2021 1:36 PM GEOPHYSICAL MANAGER 30 mL/h r loratadine (CLARITIN) tablet 10 mg 10 mg, oral, Every morning, First dose on Sun10/18/21 at 0900, Indications: Allergic RhinitisIndications:Allergic Rhinitis Given 10/18/2021 8:57 AM GEOPHYSICAL MANAGER 10 mg mirabegron ER (MYRBETRIQ) extended release tablet 25 mg 25 mg, oral, Every morning, First dose on Sun10/18/21 at 0900, Do not crush, chew, cut, dissolve, open or otherwise manipulate tablet/capsule., Indications: Bladder HyperactivityIndications:Bladder Hyperactivity Given 10/18/2021 8:55 AM GEOPHYSICAL MANAGER 25 mg ondansetron (ZOFRAN) injection 4 mg [...] interval., Indications: PainIndications:Pain Given 10/18/2021 6:09 AM GEOPHYSICAL MANAGER 1 tablet polyvinyl alcohol-povidone (REFRESH CLASSIC) 1.4-0.6 % ophthalmic solution 1 drop 1 drop, each eye, Daily, First dose on Sun10/18/21 at 0900 Given 10/18/2021 8:57 AM GEOPHYSICAL MANAGER 1 drop povidone-iodine (BETADINE) 22.5 mL in sodium chloride 0.9% 250 mL irrigation As needed, Starting on Sun10/17/21 at 1523, Intra-Op Given 10/17/2021 3:23 PM GEOPHYSICAL MANAGER 272.5 mL Surgical Site senna-docusate (PERICOLACE) 8.6-50 mg per tablet 2 tablet 2 tablet, oral, 2 times daily, First dose on Sun10/17/21 at 2100, Hold for diarrhea., Indications: constipationIndications:constipa tion Given 10/18/2021 8:54 AM GEOPHYSICAL MANAGER 2 tablets Given 10/17/2021 8:06 PM GEOPHYSICAL MANAGER 2 tablets sodium chloride 0.9% flush 0.5-20 mL 0.5-20 mL, intra-catheter, Every 8 hours scheduled, First dose on Sun10/17/21 at 2200, Flush volume based on line type and size. Given 10/18/2021 6:09 AM GEOPHYSICAL MANAGER 5 mL Given 10/17/2021 11:33 PM GEOPHYSICAL MANAGER 5 mL sodium chloride 0.9% infusion 100 mL/hr, intravenous, Continuous, Starting on Sun10/17/21 at 1815 New Bag 10/17/2021 6:31 PM GEOPHYSICAL MANAGER 100 mL/hr 100 mL/hr documented in this [...] Recently Administered Medications Times are shown in GEOPHYSICAL MANAGER. Scheduled Medication Order 10/16/2021 10/17/2021 10/18/2021 acetaminophen [...] administered by the anesthesia staff (Anesthesiologist or DRILL GRINDER), Starting on Sun10/17/21 at 1048, For 1 [...] disintegrating tablet 4 mg 1 10/17/2021 peg 776-aaipivmxedfj-unidhhj n 1-0.36-0.2 % drops 1 drop 1 [...] 10/18/2021 documented in this encounter Care Teams Machine Carton Marker Relationship Specialty Start Date End Date Rl Medina DO [address] [place] [address] PCP - General 08/09/17 05/25/24 documented as of this encounter
--- OUTSIDE RECORDS SUMMARY | 2024-11-05 23:05 | XMS_ITS | Encounter Summary ---
Author Organization [facility] Address [address] [place] [address] Phone Care Team Providers Care Aquatics Specialist Name Role Phone Rl Medina DO Primary Care Provider [phone] Reason for Referral * (Routine) - Closed Specialty Diagnoses / Procedures Referred By Manisha gale Referred To Contact Diagnoses Right knee pain, unspecified chronicity Procedures Large Joint Injection: R knee Fransisco Heard MD Phone: tel: fax: [facility] (All Locations) Referral ID Status Reason Start Date Expiration Date Visits Re quested Visits Authorized [id number] Closed 09/24/2019 04/04/2021 1 1 D AND ADOLESCENT PSYCHIATRIST Reason for Visit * Reason Comments Pain Encounter Details Date Type Department Care Team (Late st Contact Info) Description 09/24/2019 9:45 AM CHILD AND ADOLESCENT PSYCHIATRIST Office Visit [facility] Orthopaedic Surgery [address] [facility] 2nd Floor [address] [place] [address] Fransisco Heard MD [address] [place] [address] Right knee pain, unspecified chronicity (Primary Dx); [...] on file Legal Sex Male 9:07 PM CHILD AND ADOLESCENT PSYCHIATRIST Gender Identity Not on file Sexual Orientation [...] SP repeat a sed rate and crp. D AND ADOLESCENT PSYCHIATRIST * Fransisco Heard MD - 09/24/2019 9:45 [...] the procedure well with no immediate complications D AND ADOLESCENT PSYCHIATRIST documented in this encounter Miscellaneous Notes * Addendum Note - Elizabeth Brown CLT - 09/24/2019 9:45 AM CSTAddended by: ELIZABETH BROWN on: 09/24/2019 04:06 PM Modules accepted: Orders D AND ADOLESCENT PSYCHIATRIST * Addendum Note - Elizabeth Brown CLT - 09/24/2019 9:45 AM CSTAddended by: ELIZABETH BROWN on: 09/24/2019 04:07 PM Modules accepted: Orders D AND ADOLESCENT PSYCHIATRIST documented in this encounter Plan of Treatment Scheduled Orders Name Type Priority Associated Diagnoses Orde r Schedule Synovial fluid, cell count Lab Routine Right knee pain, unspecified chronicity Aftercare following right knee joint replacement surgery Expected: 09/24/2019, Expires: 09/24/2020 documented as of this encounter Procedures Procedure Name Priority Date/Time Associated Diagnosis Comments SYNOVASURE Routine 10/09/2019 12:04 PM CHILD AND ADOLESCENT PSYCHIATRIST Right knee pain, unspecified chronicity Aftercare following right knee joint replacement surgery [place] ARTHROCENTESIS ASPIR&/INJ MAJOR JT/BURSA W/O US Routine 09/24/2019 9:45 AM CHILD AND ADOLESCENT PSYCHIATRIST Right knee pain, unspecified chronicity documented in this encounter Results * Synovasure (10/09/2019 12:04 PM CHILD AND ADOLESCENT PSYCHIATRIST) Synovial fluid us Fransisco Heard MD LAB BODY FLUIDS AND STOOLS ORDERABLES Final Result EXTERNAL LAB * Aerobic and anaerobic culture and gram stain Aspirate Knee, right (09/24/2019 3:28 PM CHILD AND ADOLESCENT PSYCHIATRIST) Direct Specimen Exam Stain: No polymorphonuclear leukocytes seen. No organisms seen. [facility] Report Final Report: No growth [facility] Aspirate (Knee, right) 09/24/2019 3:28 PM CHILD AND ADOLESCENT PSYCHIATRIST 09/24/2019 5:09 PM CHILD AND ADOLESCENT PSYCHIATRIST Narrative [facility] - 09/29/2019 10:53 AM CHILD AND ADOLESCENT PSYCHIATRIST Testing performed by [facility] Microbiology [facility] ([phone]) Specimens submitted from normally sterile body sites [...] GENERAL ORDERABLES Final Result Performing Organization Address [facility] Co de Phone Number [facility] [place] [address] * Crystal Analysis, Body Fluid (09/24/2019 3:28 PM CHILD AND ADOLESCENT PSYCHIATRIST) Specimen type, fld Synovial [facility] Body site, fld RIGHT KNEE [facility] Crystals None Seen None Seen [facility] Fluid 09/24/2019 3:28 PM CHILD AND ADOLESCENT PSYCHIATRIST 09/24/2019 4:09 PM CHILD AND ADOLESCENT PSYCHIATRIST us Fransisco Heard MD LAB BODY FLUIDS AND STOOLS ORDERABLES Final Result Performing Organization Address [facility] de Phone Number [facility] Department [place] [address] * [place] ARTHROCENTESIS ASPIR&/INJ MAJOR JT/BURSA W/O US (09/24/2019 9:45 AM CHILD AND ADOLESCENT PSYCHIATRIST) Narrative Fransisco Heard MD - 09/24/2019 9:45 AM CHILD AND ADOLESCENT PSYCHIATRIST Fransisco Heard MD ? 09/24/2019 12:28 PM [...] 10/01/2019 added in this encounter Care Teams Aquatics Specialist Relationship Specialty Start Date End Date Rl Medina DO [address] [place] [address] PCP - General 08/09/17 05/25/24 documented as of this encounter
--- OUTSIDE RECORDS SUMMARY | 2024-11-05 23:05 | XMS_ITS | Encounter Summary ---
Author Organization [facility] Healthcare Address [address] [place] [address] Care Team Providers Care Thermograph Operator Name Role Phone Rl Medina DO Primary Care Provider Encounter Details Date Type Department Care Team (Late st Contact Info) Description 09/28/2021 11:50 AM PAPER MACHINE OPERATOR Lab [facility] [address] [place] [address] Preop testing; Primary osteoarthritis of left knee [...] on file Legal Sex Male 9:07 PM PAPER MACHINE OPERATOR Gender Identity Not on file Sexual Orientation Not on file documented as of this encounter Plan of Treatment Not on file documented as of this encounter Procedures Procedure Name Priority Date/Time Associated Diagnosis Comments EGFR Routine 09/28/2021 11:56 AM PAPER MACHINE OPERATOR Primary osteoarthritis of left knee DIFFERENTIAL AUTO Routine 09/28/2021 11: 56 AM PAPER MACHINE OPERATOR Primary osteoarthritis of left knee CBC WITH AUTO DIFFERENTIAL Routine 09/28/2021 11:56 AM PAPER MACHINE OPERATOR Primary osteoarthritis of left knee VITAMIN D 25 HYDROXY Routine 09/28/2021 11:56 AM PAPER MACHINE OPERATOR Primary osteoarthritis of left knee COMPREHENSIVE METABOLIC PANEL Routine 09/28/2021 11:56 AM PAPER MACHINE OPERATOR Primary osteoarthritis of left knee URINALYSIS AND REFLEX TO MICROSCOPIC AND CULTURE Routine 09/28/2021 11:49 AM PAPER MACHINE OPERATOR Preop testing URINALYSIS, MICROSCOPIC ONLY Routine 09/28/2021 11:49 AM PAPER MACHINE OPERATOR Preop testing documented in this encounter Results * eGFR (09/28/2021 11:56 AM PAPER MACHINE OPERATOR) Pathologist [facility] eGFR 90 mL/min/1.7 3 m2 [facility] [...] reviewed 2020 Blood 09/28/2021 11:5 6 AM PAPER MACHINE OPERATOR 09/28/2021 12:07 PM PAPER MACHINE OPERATOR us Fransisco Heard MD LAB BLOOD ORDERABLES Final Result [facility] [address] [facility]. [place] [address] * Differential, auto (09/28/2021 11:56 AM PAPER MACHINE OPERATOR) Neutrophil abs 2.5 1.7 - 6.5 K/cumm [...] 2018. Imm gran pct 0.2 % [facility] Comment: Interpretive Data [...] on 2018. Blood 09/28/2021 11:5 6 AM PAPER MACHINE OPERATOR 09/28/2021 12:07 PM PAPER MACHINE OPERATOR us Fransisco Heard MD LAB BLOOD ORDERABLES Final Result [facility] [address] [facility] [address] * Comprehensive metabolic panel (09/28/2021 11:56 AM PAPER MACHINE OPERATOR) Sodium 138 135 - 145 mmol/L CERNER [...] Protein, pl 6.7 6.5 - 8.5 g/dL [facility] Albumin 4.6 3.5 - 5.0 g/dL [facility] Alk phos 63 40 - 130 Units/L [facility] ALT 19 7 - 55 Units/L [facility] AST 22 10 - 50 Units/L [facility] Blood 09/28/2021 11:5 6 AM PAPER MACHINE OPERATOR 09/28/2021 12:07 PM PAPER MACHINE OPERATOR Fransisco Heard MD LAB BLOOD ORDERABLES Final Result Performing Organization Address City/[facility]/ZIP Co de Phone Number [facility] [address] [facility] [employer] [place], [place] [id number] * (ABNORMAL) Vitamin D 25 hydroxy (09/28/2021 11:56 AM PAPER MACHINE OPERATOR) Pathologist [facility] Vitamin D 25-OH 92(H) 30 - 80 ng/mL [facility] Comment:Testing performed by : [facility], [address] [place]., [address] Blood 09/28/2021 11:5 6 AM PAPER MACHINE OPERATOR 09/28/2021 2:31 PM PAPER MACHINE OPERATOR Fransisco Heard MD LAB BLOOD ORDERABLES Final Result [facility] [address] [facility] [employer] [place], [place] [id number] * (ABNORMAL) CBC with auto differential (09/28/2021 11:56 AM PAPER MACHINE OPERATOR) WBC 4.6 3.8 - 9.9 K/cumm [facility] Hgb 14.4 13.0 - 17.5 g/dL [facility] Hct 42.8 38.9 - 50.3 % [facility] Plt 132(L) 150 - 400 K/cumm [facility] MPV 11.5 9.1 - 12.3 fL [facility] RBC 4.53 4.30 - 5.80 M/cumm [facility] MCV 94.5 81.3 - 96.4 fL [facility] MCH 31.8 27.1 - 33.3 pg [facility] MCHC 33.6 32.3 - 35.7 g/dL [facility] RDW CV 12.3 11.1 - 14.9 % [facility] RDW SD 43.1 35.7 - 48.1 fL [facility] NRBC abs 0.00 0.00 - 0.01 K/cumm [facility] Blood 09/28/2021 11:5 6 AM PAPER MACHINE OPERATOR 09/28/2021 12:07 PM PAPER MACHINE OPERATOR us Fransisco Heard MD LAB BLOOD ORDERABLES Final Result Performing Organization Address [facility] de Phone Number [facility] [address] [employer] [facility] [place] [address] * (ABNORMAL) Urinalysis, microscopic only (09/28/2021 11:49 AM PAPER MACHINE OPERATOR) WBC, ur 0-5 0 - 5 /HPF [facility] RBC, ur 0-2 0 - 2 /HPF [facility] Epithelial cells, squamous, ur 1-5 0 - 5 /HPF [facility] Mucous, ur Present(A) [facility] Culture Reflex Comment Reflex conditions for urine culture (WBC >10) not met. [facility] Urine, clean voided 09/28/2021 11:49 AM PAPER MACHINE OPERATOR 09/28/2021 12:07 PM PAPER MACHINE OPERATOR Narrative [facility] - 09/28/2021 12:31 PM PAPER MACHINE OPERATOR UA Micro Reflexed Galina Ladd OFFICE AIDE LAB URINE ORDERABLES Fi nal Result Performing Organization Address [facility] Co de Phone Number [facility] [address] [employer] [facility] [place] [address] * (ABNORMAL) Urinalysis reflex to microscopic and culture Urine, clean voided (09/28/2021 11:49 AM PAPER MACHINE OPERATOR) Color, ur Yellow Yellow [facility] Clarity, [...] [facility] Urine, clean voided 09/28/2021 11:49 AM PAPER MACHINE OPERATOR 09/28/2021 12:07 PM PAPER MACHINE OPERATOR Narrative [facility] - 09/28/2021 12:30 PM PAPER MACHINE OPERATOR ?? Urine pH is affected by diet, medications, systemic acid-base disturbances, and renal tubular function. ??pH may affect urinary stone formation. ??For example, urine pH below 6.0 may help reduce the tendency for calcium phosphate stones and pH greater than 6.0 may reduce the tendency for uric acid stone formation. Source: [facility] [employer]. Last revised 11-15-2017 Galina Ladd NP LAB MICROBIOLOGY - GENE RAL ORDERABLES Final Result [facility] [address] [facility] [place] [address] documented in this encounter Visit Diagnoses Diagnosis Preop testing Unspecified pre-operative examination Primary osteoarthritis of left knee documented in this encounter Care Teams Thermograph Operator Relationship Specialty Start Date End Date Rl Medina DO [address] [place] [address] PCP - General 08/09/17 05/25/24 documented as of this encounter
--- OUTSIDE RECORDS SUMMARY | 2024-11-05 23:05 | XMS_ITS | Encounter Summary ---
Author Organization [facility] Healthcare Address [address] [place] [address] Care Team Providers Care Asphalt Engineer Name Role Phone Rl Medina DO Primary Care Provider Reason for Referral * Diagnostic Imaging (Routine) - Closed Specialty Diagnoses / Procedures Referred By Charlesac t Referred To Contact Diagnoses Status post left knee replacement Procedures XR Knee Left 1 or 2 Views Fransisco Heard MD [address] [place] [address] Phone: tel: fax: [facility] [address] [place] [phone] Phone: tel: Referral ID Status Reason Start Date Expiration Date Visits Re quested Visits Authorized [id number] Closed 12/22/2021 01/21/2023 1 1 Reason for Visit * Diagnostic Imaging (Routine) - Closed Specialty Diagnoses / Procedures Referred By Contac t Referred To Contact Diagnoses Status post left knee replacement Procedures XR Knee Left 1 or 2 Views Fransisco Heard MD [address] [place] [id number] Phone: tel: fax: [facility] [address] [place] [phone] Phone: tel: Referral ID Status Reason Start Date Expiration Date Visits Re quested Visits Authorized [id number] Closed 12/22/2021 01/21/2023 1 1 Encounter Details Date Type Department Care Team (Latest Contact Info) Description 02/07/2022 12:48 PM CDT - 02/07/2022 11:59 PM CDT Hospital Encounter [id number] [address] [facility] [address] [place] [address] Fransisco Heard MD [address] [place] [address] Status post left knee replacement Discharge Disposition: [...] on file Legal Sex Male 9:07 PM EDUCATION PROGRAM MANAGER Gender Identity Not on file Sexual [...] total) by mouth every morning 4 peg [id number]-ml ycerin 1-0.36-0.2 % dropsIndications:Dr dixon Eye Administer [...] replacement documented in this encounter Care Teams Asphalt Engineer Relationship Specialty Start Date End Date Rl Medina DO [address] [place] [address] PCP - General 08/09/17 05/25/24 documented as of this encounter
--- OUTSIDE RECORDS SUMMARY | 2024-11-05 23:05 | XMS_ITS | Encounter Summary ---
Author Organization [facility] Address [address] [place] [address] Phone Care Team Providers Care Horse Rider Name Role Phone Rl Medina DO Primary Care Provider Reason for Referral * Diagnostic Imaging (Routine) - Closed Specialty Diagnoses / Procedures Referred By Mansiha gale Referred To Contact Diagnoses Unilateral primary osteoarthritis, left knee Aftercare following right knee joint replacement surgery Procedures XR Knee Right 3 Views Fransisco Heard MD [address] [address] Phone: tel: fax: [facility] [address] [place] [phone] Phone: tel: Referral ID Status Reason Start Date Expiration Date Visits Re quested Visits Authorized [id number] Closed 08/03/2021 09/02/2022 1 1 * Diagnostic Imaging (Routine) - Closed Specialty Diagnoses / Procedures Referred By Manisha gale Referred To Contact Diagnoses Unilateral primary osteoarthritis, left knee Aftercare following right knee joint replacement surgery Procedures XR Knee Left 3 Views Fransisco Heard MD [address] [facility] [address] [place] [address] Phone: tel: fax: [facility] Rad[facility] [address] [place] [address] [address] [place] [address] Phone: tel: Referral ID Status Reason Start Date Expiration Date Visits Re quested Visits Authorized [id number] Closed 08/03/2021 09/02/2022 1 1 Reason for Visit * Reason Comments Pain Pain Encounter Details Date Type Department Care Team (Late st Contact Info) Description 08/09/2021 1:30 PM CDT Office Visit [facility] Orthopaedic Surgery [address] [facility] Medical Office [address] [place] [address] Fransisco Heard MD [address] [facility] [address] [place] [address] Unilateral primary osteoarthritis, left knee (Primary Dx); [...] on file Legal Sex Male 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 Electronically signed by: Oskar cAkerman MD, PHD Narrative 08/09/2021 4:33 PM CDT [...] documented as of this encounter Care Teams Horse Rider Relationship Specialty Start Date End Date Rl Medina DO [address] [place] [address] PCP - General 08/09/17 05/25/24 documented as of this encounter
--- OUTSIDE RECORDS SUMMARY | 2024-11-05 23:05 | XMS_ITS | Encounter Summary ---
Author Organization [facility] Address [address] [place] [address] Phone Care Team Providers Care Toolmaker Name Role Phone Rl Medina DO Primary Care Provider Reason for Referral * Diagnostic Imaging (Routine) - Closed Specialty Diagnoses / Procedures Referred By Manisha agle Referred To Contact Diagnoses Status post left knee replacement Procedures XR Knee Left 4 or More Views Shane Manriquez MD [address] [address] Phone: tel: fax: [facility] [place] [address] [place] [address] [address] [place] [address] Phone: tel: Referral ID Status Reason Start Date Expiration Date Visits Re quested Visits Authorized [id number] Closed 10/10/2022 11/09/2023 1 1 UNITY MARKETING COORDINATOR Reason for Visit * Reason Comments Pain Encounter Details Date Type Department Care Team (Late st Contact Info) Description 10/17/2022 11:45 AM COMMUNITY MARKETING COORDINATOR Office Visit [facility] Orthopaedic [facility] Medical Office Building [address] [place] [address] Shane Manriquez MD [address] [place] [address] Status post left knee replacement (Primary Dx) [...] file Legal Sex Male 9:07 PM COMMUNITY MARKETING COORDINATOR Gender Identity Not on file Sexual [...] for routine surveillance visits with ourNurse Practitioner/Physician Woodworker Helper to monitor radiograph images. Patient is welcome to come back and see me if there are any issues or problems. Shane Manriquez MD UNITY MARKETING COORDINATOR documented in this encounter Plan of Treatment Not on file documented as of this encounter Results * XR Knee Left 4 or More Views (10/17/2022 11:59 AM COMMUNITY MARKETING COORDINATOR) Anatomical Region Laterality Modality Lower Extremities, Knee Left Computed Radiography 10/17/2022 1:13 PM COMMUNITY MARKETING COORDINATOR Impressions 10/17/2022 1:13 PM COMMUNITY MARKETING COORDINATOR Unchanged 2 component left knee arthroplasty in near-anatomic alignment. Electronically signed by: Timbo Wilocx MD Narrative 10/17/2022 1:13 PM COMMUNITY MARKETING COORDINATOR EXAMINATION: XR KNEE LEFT 4 OR MORE [...] 4 added in this encounter Care Teams Toolmaker Relationship Specialty Start Date End Date Rl Medina DO [address] [place] [address] PCP - General 08/09/17 05/25/24 documented as of this encounter
--- OUTSIDE RECORDS SUMMARY | 2024-11-05 23:05 | XMS_ITS | Encounter Summary ---
Author Organization [facility] Healthcare Address [address] [place] [address] Care Team Providers Care Laser Beam Color Scanner Operator Name Role Phone Rl Medina DO Primary Care Provider [phone] Encounter Details Date Type Department Care Team (Latest Contact Info) Description 09/30/2019 10:12 AM MARKET SALES MANAGER - 10/01/2019 12:51 PM MARKET SALES MANAGER Hospital Encounter [facility] [address] [place] [address] Fransisco Heard MD [address] [facility] [address] [place] [address] Failure of total knee replacement, initial encounter ([facility]) (Primary Dx) Discharge Disposition: Discharge to home, [...] on file Legal Sex Male 9:07 PM MARKET SALES MANAGER Gender Identity Not on file Sexual Orientation Not on file documented as of this encounter Last Filed Vital Signs Vital Sign Reading Time Taken Comments Blood Pressure 130/75 10/01/2019 8:30 AM MARKET SALES MANAGER Pulse 66 10/01/2019 8:30 AM MARKET SALES MANAGER Temperature 36.6 ??C (97.9 ??F) 10/01/2019 7:09 AM CS T Respiratory Rate 18 10/01/2019 7:09 AM MARKET SALES MANAGER Oxygen Saturation 97% 10/01/2019 8:30 AM MARKET SALES MANAGER Inhaled Oxygen Concentration - - Weight 86.2 kg (190 lb) 09/30/2019 6:56 PM MARKET SALES MANAGER Height 172.7 cm (5' 7.99 ) 09/30/2019 6:56 PM CS T Body Mass Index 28.9 09/30/2019 6:56 PM MARKET SALES MANAGER documented in this encounter Discharge Diagnoses Diagnosis Other mechanical complication of internal right knee prosthesis, initial encounter ([facility]) - OTHER MECHANICAL COMPLICATION OF INTERNAL RIGHT KNEE PROSTHESIS, INITIAL ENCOUNTER Mechanical loosening of internal right knee prosthetic joint, initial encounter ([facility]) - MECHANICAL LOOSENING OF INTERNAL RIGHT KNEE [...] knee - UNILATERAL PRIMARY OSTEOARTHRITIS, RIGHT KNEE shelter (current) use of non-steroidal anti-inflammatories (nsaid) - FERMENTATION MANAGER (CURRENT) USE OF NON-STEROIDAL ANTI-INFLAMMATORIES (NSAID) Other senior care (current) drug therapy - OTHER HALFWAY (CURRENT) DRUG THERAPY Personal history of nicotine dependence - PERSONAL HISTORY OF NICOTINE DEPENDENCE Body mass index (bmi) 29.0-29.9, adult - BODY MASS INDEX (BMI) 29.0-29.9, ADULT documented in this encounter Discharge Summaries * Rebecca Hennessy NP - 10/01/2019 8:03 AM CST Inpatient Discharge Summary Admitting Provider: Fransisco Heard MD Discharge Provider: Fransisco Heard MD Primary Care Physician at Discharge: Rl Medina DO [phone] Admission Date: 09/30/2019 Discharge Date: 10/01/2019 Primary Discharge Diagnosis: No Principal Problem: There is no principal problem currently on the Problem List. Please update the Problem List and refresh. 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 Condition on Discharge: Stable Cosigned by Fransisco Heard MD at 10/06/2019 9:31 AM MARKET SALES MANAGER ET SALES MANAGER ET SALES MANAGER documented in this encounter Medications at [...] Obtained From Patient Referral Data Referral Source Geophysical Support Specialist Referral Reason Discharge Planning Prior to Admission Primary Caregiver Self Support System Spouse/Significant Other Support system contact info (name, phone, availablity) -Val [phone] Home Care Services Yes Type of Home Care Services Home therapies;Nurse visit Home care service name and phone number [facility] [phone] Durable Medical Equipment None Living Arrangements Spouse/significant other (lives with ) Type of Residence Private residence Potential Discharge Needs Home Health Physical therapy;snf Anticipated discharge level of care Private residence [...] withthe patient. Explained role and purpose of window caser. Denies the use of home health in the past - a list will be provided if recommended. Patient chose [facility] to follow with RN and PT at discharge. Patient will also go home with ABF with [facility] [employer] and [facility] with a wheeled walker. project product manager to continue to follow for planning [...] with family support with PCP follow up ET SALES MANAGER * Moni Walker RN - 10/01/2019 12:51 PM CST 09/30/19 0746 Discharge Summary Chart reviewed For Medical Necessity Does patient have a planned readmission to hospital planned? No Discharge Disposition Home with Home Health (PT/OT/RN);Home with DME Equipment/Provider Needs Home Provider Services Needs Identified;Home Equipment Needs Identified Home Care Agency Information Home Care Agency Name [facility] Home Care Agency Home Care Agency Contact Spoken to Maeve Home Care Agency Order Faxed to [phone] Home Equipment Information Home Equipment Provider Name ABF Home Equipment Provider Equipment Ordered ACP Second Home Eqp Provider Used? [employer] Needed Home Equipment Information #2 Home Equipment Provider #2 Name [facility] Home Equipment Provider #2 Equipment Ordered from [facility] [facility] Wheeled walker Discharge Additional Assistance Does the patient need discharge transport arranged? No Post Discharge Care Provider Post Discharge Care Plan DC Summary has been faxed to next level of care provider (see Follow Up Providers) ET SALES MANAGER * Nichole Rico MD - 10/01/2019 7:02 [...] Nichole Rico MD Adult Reconstruction Fellow Pager: [phone] ET SALES MANAGER documented in this encounter H&P Notes [...] Fransisco Heard MD at 09/30/2019 1:40 PM MARKET SALES MANAGER ET SALES MANAGER ET SALES MANAGER Source Note - Kasey Guerrero NP - 09/03/2019 2:55 PM CDT Images from the original note were not included. [facility] for Preoperative Assessment and Planning Preoperative Evaluation Record Evaluation type/location: [facility] Date: 09/03/19 Anesthesia Evaluation Hira Evans [...] BP - 85 Pertinent negatives: CAD ; MA ; CABG ; valvular heart disease; valve [...] - 10/01/2019 6:19 AM CST Rebecca Hennessy CRIMINALIST notified RN emptied 400ml urine from urinal but pt stated he voided about 4 timesin the same urinal. 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 Post void residual was 967ml. Order to straight cath and to give urecholine. Will continue to monitor. ET SALES MANAGER documented in this encounter Miscellaneous Notes [...] TKA protocol without verbal cues. Outcome: Completed ET SALES MANAGER * Plan of Care - Divina Alaniz [...] be discharging after work with PT today. ET SALES MANAGER * Plan of Care - Aziza Batista [...] tonight, void. Summary: Patient progressing towards goals. ET SALES MANAGER * Plan of Care - Divina Alaniz RN - 09/30/2019 7:07 PM CST Problem: Health Behavior: Goal: Understanding of discharge needs will improve Outcome: Progressing Goals: Clinical Goals for the Shift: Pain control, OOB tonight, void. Summary: Patient is progressing towards goals. ET SALES MANAGER * Op Note - Fransisco Heard MD - 09/30/2019 2:41 PM CST OPERATIVE REPORT ATTENDING SURGEON: Fransisco Heard M.D. FIRST MACHINE JOINT CUTTER: Nichole Rico M.D. SECOND/THIRD MACHINE JOINT CUTTER: Tabitha Jones PREOPERATIVE DIAGNOSIS: Failed right total knee arthroplasty, instability POSTOPERATIVE DIAGNOSIS: Failed right total knee arthroplasty, instability PROCEDURE: Right revision total knee arthroplasty IMPLANTS: Clay Pigeon Loader: [employer]wick [employer] Nephew Brand: Legion Tibial component [...] complication, need for further surgery, DVT, PE, MA, stroke, and were discussed. After all questions [...] A trial femur was then placed and the box was cut. We next trialed with a condylar constrained poly. The knee was loose in extension so we added 10mm distal femoral augments medially and laterally. When were were happy with the stability in flexion, extension and with varus and valgus stress final implants were selected. The knee was irrigated and thoroughly dried. We cemented in the tibia and femoral components and trialed again. We then implanted our final poly. The wound was [...] Rico was necessary for the procedure as assistant coach, because total knee replacementis a difficult procedure, requiring at least two skilled and experienced surgeons. One surgeon was necessary to help maintain exposure and assist with the use of specific total knee replacement instrumentation, while the primary surgeon performed the procedure and no qualified resident was available. ET SALES MANAGER ET SALES MANAGER * Brief Op Note - Nichole Rico MD - 09/30/2019 2:41 PM MARKET SALES MANAGER Operative Progress Note Surgical Team: Surgeon(s) and Role: * Fransisco Heard MD - Primary * Nichole Rico MD Anesthesiologist: Edmond Barker MD VIOLIN REPAIRER: Rafael Shaw III, CRNA; Mildred Harrison CRNA Ball Machine Operator: Giovana Masterson RN; Will Rodrigez RN Physician Quarantine Inspector: SREEDHAR Alcazar Scrub: Joann Hernandez RN; Grace [...] Implant Name Type Inv. Item Serial No. Clay Pigeon Loader Lot No. LRB No. Used [employer] 6197-9-010 SIMPLEX P FULL DOSE RADIOPAQUE PREBLEND CEMENT BONE TOBRAMYCIN - S0- [id number] Bone Cement [employer] 6197-9-010 Simplex P Full Dose Radiopaque Preblend Cement Bone Tobramycin 0 [employer] [id number] Right 2 [employer] NEPHEW/RICHCO/ORTHO [id number] FRANCINE II 15MM CONSTRAIN KNEE 5-6 INSERT ARTICULAR UHMWPE - S0 - [id number] Other - see comments [employer]RICHCO/ORTHO [id number] Francine Ii 15mm Constrain Knee 5-6 Insert Articular Uhmwpe 0 [employer]/Rich[employer]/Ortho [id number] Right 1 [employer]RICH[employer]/ORTHO [id number] LEGION 10MM SCREW KNEE 6 WEDGE FEMORAL - S0 - [id number] Other - see comments [employer]/RICHCO/ORTHO [id number] Legion 10mm Screw Knee 6 Wedge Femoral 0 [employer]/Rich[employer]/Ortho Right 1 [employer]RICHCO/ORTHO [id number] LEGION CONSTRAIN KNEE RIGHT 6 COMPONENT FEMORAL OXINIUM - S0 - [id number] Other - see comments [employer]RICHCO/ORTHO [id number] Legion Constrain Knee Right 6 Component Femoral Oxinium 0 [employer]/Richco/Ortho [id number] Right 1 [employer]RICHCO/ORTHO [id number] LEGION 5MM ALCON STEP KNEE RIGHT MEDIAL LEFT LATERAL 5-6 WEDGE - S0 - [id number] Other - see comments [employer]PHE[employer]/RICHCO/ORTHO [id number] Legion 5mm Alcon Step Knee Right Medial Left Lateral 5-6 Wedge 0 [employer]hew/Richco/Ortho Right 1 [employer]RICHCO/ORTHO [id number] LEGION 15MM 160MM PRESS FIT KNEE STEM FEMORAL - S0 - [id number] Other - see comments [employer]RICHCO/ORTHO [id number] Legion 15mm 160mm Press Fit Knee Stem Femoral 0 [employer]hew/Richco/Ortho [id number] Right 1 [employer]PHEW/RICHCO/ORTHO [id number] LEGION 10MM SCREW KNEE 6 WEDGE FEMORAL - S0 - [id number] Other - see comments [employer]PHE[employer]/RICHCO/ORTHO [id number] Legion 10mm Screw Knee 6 Wedge Femoral 0 [employer]/Richco/Ortho [id number] Right 1 [employer]RICHCO/ORTHO [id number] LEGION REVISION KNEE RIGHT 5 BASEPLATE TIBIAL - S0 - [id number] Other - see comments [employer]/RICHCO/ORTHO [id number] Legion Revision Knee Right 5 Baseplate Tibial 0 [employer]hew/Richco/Ortho [id number] Right 1 [employer]PHEW/RICHCO/ORTHO [id number] LEGION 15MM 160MM PRESS FIT KNEE STEM FEMORAL - S0 - [id number] Other - see comments [employer] NEPHEW/RICHCO/ORTHO [id number] Legion 15mm 160mm Press Fit Knee Stem Femoral 0 [employer]wick [employer] Nephew/Richco/Ortho [id number] Right 1 [employer] 6197-9-010 SIMPLEX P FULL DOSE RADIOPAQUE PREBLEND CEMENT BONE TOBRAMYCIN - [id number] [employer] 6197-9-010 Simplex P Full Dose Radiopaque Preblend Cement Bone Tobramycin [employer] Right 2 Blood/Blood Products Transfused: 0 mls Complications: None Condition on Discharge from the operating room was stable Nichole Rico MD Date: 09/30/2019 Time: 4:28 PM ET SALES MANAGER documented in this encounter Plan of Treatment Not on file documented as of this encounter Procedures Procedure Name Priority Date/Time Associated Diagnosis Comments CBC WITHOUT DIFFERENTIAL Routine 09/30/2019 9:35 PM MARKET SALES MANAGER BASIC METABOLIC PANEL Routine 09/30/2019 9:35 PM MARKET SALES MANAGER XR KNEE RIGHT 1 OR 2 VIEWS STAT 09/30/2019 6:07 PM MARKET SALES MANAGER REVISION ARTHROPLASTY TOTAL KNEE 09/30/2019 1:57 PM MARKET SALES MANAGER 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 WBC 8.5 3.8 - 9.9 K/cumm [facility] Hgb 13.9 13.0 - 17.5 g/dL [facility] Hct 40.3 38.9 - 50.3 % [facility] Plt 118(L) 150 - 400 K/cumm [facility] MPV 12.2 9.1 - 12.3 fL [facility] RBC 4.34 4.30 - 5.80 M/cumm [facility] MCV 92.9 81.3 - 96.4 fL [facility] MCH 32.0 27.1 - 33.3 pg [facility] MCHC 34.5 32.3 - 35.7 g/dL [facility] RDW CV 12.1 11.1 - 14.9 % [facility] RDW SD 42.2 35.7 - 48.1 fL [facility] NRBC abs 0.00 0.00 - 0.01 K/cumm [facility] Blood specimen (specimen) 09/30/2019 9:35 PM MARKET SALES MANAGER 09/30/2019 10:52 PM MARKET SALES MANAGER Nichole Rico MD LAB BLOOD ORDERABLES Final Result [facility] Department [place] [address] * (ABNORMAL) Basic metabolic panel (09/30/2019 9:35 PM MARKET SALES MANAGER) [facility] Sodium 136 135 - 145 mmol/L [facility] Potassium, pl 4.0 3.3 - 4.9 mmol/L [facility] Chloride 101 97 - 110 mmol/L [facility] CO2 24 22 - 32 mmol/L [facility] Anion gap 11 2 - 15 mmol/L [facility] BUN 12 8 - 25 mg/dL [facility] Creatinine 0.74(L) 0.80 - 1.30 mg/dL [facility] Glucose 203(H) 70 - 199 mg/dL [facility] [...] 2017. Calcium 8.5 8.5 - 10.3 mg/dL [facility] Blood specimen (specimen) 09/30/2019 9:35 PM MARKET SALES MANAGER 09/30/2019 10:52 PM MARKET SALES MANAGER Nichole Rico MD LAB BLOOD ORDERABLES Final Result [facility] Department [place] [address] * XR Knee Right 1 or 2 View (09/30/2019 6:07 PM MARKET SALES MANAGER) Anatomical Region Laterality Modality Lower Extremities, Knee Right Computed Radiography 10/01/2019 5:52 AM MARKET SALES MANAGER Impressions 10/01/2019 5:52 AM MARKET SALES MANAGER 1. ??Revision right total knee arthroplasty in near-anatomic position Electronically signed by: Oskar Ackerman MD, PHD Narrative 10/01/2019 5:52 AM MARKET SALES MANAGER EXAMINATION: Right knee one or 2 views [...] * Type and screen (09/30/2019 12:00 PM MARKET SALES MANAGER) ABO Rh O Positive [facility] Jigna, indirect Negative [facility] Blood specimen (specimen) 09/30/2019 12:00 PM MARKET SALES MANAGER 09/30/2019 12:22 PM MARKET SALES MANAGER Narrative [facility] - 09/30/2019 1:51 PM MARKET SALES MANAGER Has the patient had Daratumumab (Darzalex) in the past 6 months?->No Carlos Manuel Good NP LAB BLOOD BANK TEST JOSE SONAL Final Result [facility] Department [place] [address] documented in this encounter Visit Diagnoses Diagnosis Failure of total knee replacement, initial encounter (HCC)- Primary 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 (CMS/HCC) ([facility]) documented in this encounter Admitting Diagnoses Diagnosis 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 Do not crush, chew, cut, dissolve, open or otherwise manipulate tablet/capsule., Indications: Deep Vein Thrombosis PreventionIndications:Deep Vein Thrombosis Prevention Given 10/01/2019 8:15 AM MARKET SALES MANAGER 325 mg Given 09/30/2019 8:22 PM MARKET SALES MANAGER 325 mg benzocaine-menthol (CHLORASEPTIC) lozenge 1 lozenge 1 lozenge, mouth/throat, Every 4 hours PRN, sore throat, Starting on Sun09/30/19 at 2140 Given 10/01/2019 8:17 AM MARKET SALES MANAGER 1 lozenge Given 09/30/2019 10:28 PM MARKET SALES MANAGER 1 lozenge bethanechol (URECHOLINE) tablet 25 mg 25 mg, oral, Every 1 hour, First dose (after last modification) on Sun10/01/19 at 0715, For 3 doses, Indications: Urinary RetentionIndications:Urinary Retention Given 10/01/2019 9:26 AM MARKET SALES MANAGER 25 mg Given 10/01/2019 8:16 AM MARKET SALES MANAGER 25 mg Given 10/01/2019 7:22 AM MARKET SALES MANAGER 25 mg ceFAZolin (ANCEF) 2,000 mg/20 mL in sterile water (premix) 2,000 mg 2,000 mg, intravenous, at 400 mL/hr, Administer over 3 Minutes, Every 8 hours, First dose on Sun09/30/19 at 2200, For 2 doses, Beginning 8 hours after last ruben-operative dose., Indications: Prophylaxis, SurgicalIndications:Prophylaxis, Surgical New Bag 10/01/2019 6:01 AM MARKET SALES MANAGER 2,000 mg 400 mL/hr New Bag 09/30/2019 10:29 PM MARKET SALES MANAGER 2,000 mg 400 mL/hr celecoxib (CeleBREX) capsule 100 mg 100 mg, oral, 2 times daily, First dose on Sun09/30/19 at 2100, Please schedule to start morning POD#1, Indications: PainIndications:Pain Given 10/01/2019 8:16 AM MARKET SALES MANAGER 100 mg dilTIAZem XR (CARDIZEM CD,DILACOR XR) 24 hour capsule 240 mg 240 mg, oral, 2 times daily, First dose on Sun09/30/19 at 2100, Do not crush, chew, cut, dissolve, open or otherwise manipulate tablet/capsule., Indications: hypertensionIndications:hypertension Given 10/01/2019 8:16 AM MARKET SALES MANAGER 240 mg Given 09/30/2019 10:29 PM MARKET SALES MANAGER 240 mg famotidine (PEPCID) tablet 20 mg 20 mg, oral, 2 times daily, First dose on Sun09/30/19 at 2100, Indications: HeartburnIndications:Heartburn Given 10/01/2019 8:16 AM MARKET SALES MANAGER 20 mg HYDROmorphone (DILAUDID) injection 0.4 mg [...] more., Indications: PainIndications:Pain Given 09/30/2019 5:56 PM MARKET SALES MANAGER 0.4 mg Given 09/30/2019 5:46 PM MARKET SALES MANAGER 0.4 mg ketorolac (TORADOL) 15 mg/mL injection 15 mg 15 mg, intravenous, Every 6 hours, First dose on Sun09/30/19 at 1945, For 2 doses, For Adult IV push, administer over 15 seconds, Indications: PainIndications:Pain Given 10/01/2019 1:26 AM MARKET SALES MANAGER 15 mg Given 09/30/2019 8:22 PM MARKET SALES MANAGER 15 mg Lactated Ringer's (LR) bolus 1,000 mL 1,000 mL, intravenous, Once, On Sun09/30/19 at 1215, For 1 dose, Pre-Op New Bag 09/30/2019 12:02 PM MARKET SALES MANAGER 1,000 mL Lactated Ringer's (LR) infusion 30 mL/hr, intravenous, Continuous, Starting on Sun09/30/19 at 1215, Pre-Op New Bag 09/30/2019 3:05 PM MARKET SALES MANAGER Rate/Dose Verify 09/30/2019 1:57 PM MARKET SALES MANAGER New Bag 09/30/2019 12:27 PM MARKET SALES MANAGER 30 mL/hr 30 mL/hr losartan (COZAAR) tablet 100 mg 100 mg, oral, Every morning, First dose on Sun10/01/19 at 0900, Indications: hypertensionIndications:hypertension Given 10/01/2019 8:16 AM MARKET SALES MANAGER 100 mg mirabegron ER (MYRBETRIQ) extended release tablet 25 mg 25 mg, oral, Every morning, First dose on Sun10/01/19 at 0900, Do not crush, chew, cut, dissolve, open or otherwise manipulate tablet/capsule., Indications: Bladder HyperactivityIndications:Bladder Hyperactivity Given 10/01/2019 8:16 AM MARKET SALES MANAGER 25 mg oxyCODONE-acetaminophen (PERCOCET) 5-325 mg per tablet 1 tablet 1 tablet, oral, Every 4 hours PRN, 1st line for pain, Starting on Sun09/30/19 at 1902, May repeat in 1 hour if pain is uncontrolled or increasing. Max 2 doses within 1 dosing interval., Indications: PainIndications:Pain Given 10/01/2019 11:30 AM MARKET SALES MANAGER 1 tablet Given 10/01/2019 6:01 AM MARKET SALES MANAGER 1 tablet Given 09/30/2019 8:23 PM MARKET SALES MANAGER 1 tablet senna-docusate (PERICOLACE) 8.6-50 mg per tablet 2 tablet 2 tablet, oral, 2 times daily, First dose on Sun09/30/19 at 2100, Hold for diarrhea., Indications: constipationIndications:constipation Given 10/01/2019 8:16 AM MARKET SALES MANAGER 2 table ts Given 09/30/2019 8:22 PM MARKET SALES MANAGER 2 tablets sodium chloride 0.9% flush 0.5-20 mL 0.5-20 mL, intra-catheter, Every 8 hours scheduled, First dose on Sun09/30/19 at 2200, Flush volume based on line type and size. Given 10/01/2019 6:01 AM MARKET SALES MANAGER 10 mL Given 09/30/2019 8:23 PM MARKET SALES MANAGER 10 mL sodium chloride 0.9% infusion 100 mL/hr, intravenous, Continuous, Starting on Sun09/30/19 at 1815, Phase I & Post-op Floor New Bag 09/30/2019 7:16 PM MARKET SALES MANAGER 100 mL/hr 100 mL/hr documented in [...] Recently Administered Medications Times are shown in MARKET SALES MANAGER. Scheduled Medication Order 09/29/2019 09/30/2019 10/01/2019 acetaminophen [...] 10/01/2019 documented in this encounter Care Teams Laser Beam Color Scanner Operator Relationship Specialty Start Date End Date Rl Medina DO [address] [place] [address] PCP - General 08/09/17 05/25/24 documented as of this encounter
--- OUTSIDE RECORDS SUMMARY | 2024-11-05 23:05 | XMS_ITS | Encounter Summary ---
Author Organization [facility] Address [address] [place] [address] Phone Care Team Providers Care Conduit Mechanic Name Role Phone Rl Medina DO Primary Care Provider Encounter Details Date Type Department Care Team (Latest Contact Info) Description 09/30/2019 Orders Only [facility] Fransisco Heard MD [address] [place] [address] Social History Tobacco Use Types Packs/Day Years Used Date Smoking Tobacco: Former Cigarettes 1 11 1 969 - 1980 Smokeless Tobacco: Never Alcohol Use Standard Drinks/Week Comments Yes 14 (1 standard drink = 0.6 oz pu re alcohol) social Sex and Gender Information Value Date Recorded Sex Assigned at Not on file Legal Sex Male 9:07 PM TITLE ATTORNEY Gender Identity Not on file Sexual Orientation Not on file documented as of this encounter Plan of Treatment Not on file documented as of this encounter Visit Diagnoses Not on filedocumented in this encounter Care Teams Conduit Mechanic Relationship Specialty Start Date End Date Rl Medina DO [address] [place] [address] PCP - General 08/09/17 05/25/24 documented as of this encounter
--- OUTSIDE RECORDS SUMMARY | 2024-11-05 23:05 | XMS_ITS | Encounter Summary ---
Author Organization [facility] Address [address] [place] [address] Phone Care Team Providers Care Pot Puller Name Role Phone Rl Median DO Primary Care Provider Encounter Details Date Type Department Care Team (Late st Contact Info) Description 09/24/2019 Orders Only [facility] Orthopaedic Surgery [address] [facility] 2nd Floor [address] [place] [address] Fransisco Heard MD [address] [place] [address] Right knee pain, unspecified chronicity (Primary Dx); [...] on file Legal Sex Male 9:07 PM COLLECTION SYSTEMS CONSULTANT Gender Identity Not on file Sexual Orientation Not on file documented as of this encounter Miscellaneous Notes * Addendum Note - Aleja Cat - 09/24/2019 9:51 AM CSTAddended by: ALEJA CAT on: 09/30/2019 10:22 AM Modules accepted: Orders ECTION SYSTEMS CONSULTANT * Addendum Note - Aleja Cat - 09/24/2019 9:51 AM CSTAddended by: ALEJA CAT on: 09/30/2019 10:25 AM Modules accepted: Orders ECTION SYSTEMS CONSULTANT documented in this encounter Plan of Treatment Not on file documented as of this encounter Procedures Procedure Name Priority Date/Time Associated Diagnosis Comments CBC WITH AUTO DIFFERENTIAL Routine 09/30/2019 10:22 AM COLLECTION SYSTEMS CONSULTANT Right knee pain, unspecified chronicity Aftercare following right knee joint replacement surgery CRP (ACUTE PHASE) Routine 09/30/2019 9:5 8 AM COLLECTION SYSTEMS CONSULTANT Right knee pain, unspecified chronicity Aftercare following right knee joint replacement surgery documented in this encounter Results * CBC with auto differential (09/30/2019 10:22 AM COLLECTION SYSTEMS CONSULTANT) Blood specimen (specimen) Fransisco Heard MD LAB BLOOD ORDERABLES Final Result Performing Organization Address City/[facility] Co de Phone Number EXTERNAL LAB * CRP (acute phase) (09/30/2019 9:58 AM COLLECTION SYSTEMS CONSULTANT) Blood specimen (specimen) Fransisco Heard MD LAB BLOOD ORDERABLES Final Result Performing Organization Address [facility] Co de Phone Number EXTERNAL LAB documented in this encounter Visit Diagnoses Diagnosis Right knee pain, unspecified chronicity- Primary Aftercare following right knee joint replacement surgery documented in this encounter Care Teams Pot Puller Relationship Specialty Start Date End Date Rl Medina DO [address] [place] [address] PCP - General 08/09/17 05/25/24 documented as of this encounter
--- OUTSIDE RECORDS SUMMARY | 2024-11-05 23:05 | XMS_ITS | Encounter Summary ---
Author Organization [facility] Address [address] [place] [address] Phone Care Team Providers Care Painting Manager Name Role Phone lR Medina DO Primary Care Provider Encounter Details Date Type Department Care Team (Late st Contact Info) Description 10/06/2019 Telephone [facility] Orthopaedic Surgery [address] [place] [address] [place] [phone] Fransisco Heard MD [address] [facility] [address] [place] [address] Social History Tobacco Use Types Packs/Day Years Used Date Smoking Tobacco: Former Cigarettes 1 11 1 969 - 1980 Smokeless Tobacco: Never Alcohol Use Standard Drinks/Week Comments Yes 14 (1 standard drink = 0.6 oz pu re alcohol) social Sex and Gender Information Value Date Recorded Sex Assigned at Not on file Legal Sex Male 9:07 PM NEUROLOGY PHYSICIAN ASSISTANT Gender Identity Not on file Sexual Orientation Not on file documented as of this encounter Miscellaneous Notes * Telephone Encounter - Rima Small RMA - 10/06/2019 2:26 PM CST Recent test results R knee aspiration culture was negative, and was reviewed by Dr. Heard. Pt aware of the results. OLOGY PHYSICIAN ASSISTANT documented in this encounter Plan of Treatment Not on file documented as of this encounter Visit Diagnoses Not on filedocumented in this encounter Care Teams Painting Manager Relationship Specialty Start Date End Date Rl Medina DO [address] [place] [address] PCP - General 08/09/17 05/25/24 documented as of this encounter
--- OUTSIDE RECORDS SUMMARY | 2024-11-05 23:05 | XMS_ITS | Encounter Summary ---
Author Organization [facility] Address [address] [place] [address] Phone Care Team Providers Care Derrickman Helper Name Role Phone Rl Medina DO Primary Care Provider Encounter Details Date Type Department Care Team (Late st Contact Info) Description 10/16/2019 Telephone [facility] Orthopaedic Surgery [id number] [place] [address] 2nd [address] [place] [address] Alonso Tiwari MD [facility] [place] [address], [place] [address] Social History Tobacco Use Types Packs/Day Years Used Date Smoking Tobacco: Former Cigarettes 1 11 1 969 - 1980 Smokeless Tobacco: Never Alcohol Use Standard Drinks/Week Comments Yes 14 (1 standard drink = 0.6 oz pu re alcohol) social Sex and Gender Information Value Date Recorded Sex Assigned at Not on file Legal Sex Male 9:07 PM MONITORING TECH Gender Identity Not on file Sexual Orientation Not on file documented as of this encounter Miscellaneous Notes * Telephone Encounter - Rima Small RMA - 10/16/2019 3:24 PM CST [place] w/HH called reporting pt doing well, incision looks great, off the pain meds, and started to drive a little. Pt will continue w/home exercises, and will be getting d/c tomorrow. TORING TECH documented in this encounter Plan of Treatment Not on file documented as of this encounter Visit Diagnoses Not on filedocumented in this encounter Care Teams Derrickman Helper Relationship Specialty Start Date End Date Rl Medina DO [address] [place] [address] PCP - General 08/09/17 05/25/24 documented as of this encounter
--- OUTSIDE RECORDS SUMMARY | 2024-11-05 23:05 | XMS_ITS | Encounter Summary ---
Author Organization [facility] Address [address] [place] [address] Phone Care Team Providers Care Baseball Pitcher Name Role Phone Rl Medina DO Primary Care Provider Encounter Details Date Type Department Care Team (Late st Contact Info) Description 10/11/2021 Telephone [facility] Orthopaedic Surgery [address] [place] [address] Medical Office Building [address] [place] [address] Karishma Escudero RN Social History [...] on file Legal Sex Male 9:07 PM BLASTING MACHINE OPERATOR Gender Identity Not on file Sexual Orientation Not on file documented as of this encounter Miscellaneous Notes * Telephone Encounter - Karishma Escudero RN - 10/11/2021 4:59 PM BLASTING MACHINE OPERATOR OS Recon - Note PreOp Surgery Arrival Time Call Arrival Time: 1030 Surgery Date: 10/17/21 Arrival Location: [facility] Main Entrance/Registration PreHab completed: Yes IF [...] Yes Verify patient still has a joint sales coach that will be caring for them AT LEAST 3-5 days/24 hours a day post op: Yes Instruct patient to have joint sales coach at the hospital on POD#1 to attend D/C class &/or observe nursing staff/OT/PT sessions: Yes Verify changes in medical status: Yes If Yes, comment: none Verify clean skin integrity: Yes If No, comment: no issues TING MACHINE OPERATOR documented in this encounter Plan of Treatment Not on file documented as of this encounter Visit Diagnoses Not on filedocumented in this encounter Care Teams Baseball Pitcher Relationship Specialty Start Date End Date Rl Medina DO [address] [place] [address] PCP - General 08/09/17 05/25/24 documented as of this encounter
--- OUTSIDE RECORDS SUMMARY | 2024-11-05 23:05 | XMS_ITS | Encounter Summary ---
Author Organization [facility] Care Team Providers Care Ash Worker Name Role Phone Rl Medina DO [...] file Legal Sex Male 9:07 PM RECORDS MANAGEMENT ANALYST Gender Identity Not on file Sexual Orientation Not on file documented as of this encounter Plan of Treatment Not on file documented as of this encounter Visit Diagnoses Not on filedocumented in this encounter Care Teams Ash Worker Relationship Specialty [place] [address] [place] [address] PCP - General 08/09/17 05/25/24 documented as of this encounter
--- OUTSIDE RECORDS SUMMARY | 2024-11-05 23:05 | XMS_ITS | Encounter Summary ---
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
--- OUTSIDE RECORDS SUMMARY | 2024-11-05 23:05 | XMS_ITS | Encounter Summary ---
Author Organization [facility] Address [address] [place] [address] Phone Care Team Providers Care Certified Financial Planner Name Role Phone Adam Rl JBernie RUIZ Primary Care Provider Reason for Visit * Reason Comments Post-op Encounter Details Date Type Department Care Team (Late st Contact Info) Description 10/27/2019 10:15 AM FIBERLINE SUPERVISOR Office Visit [facility] Orthopaedic Surgery [address] [facility] 6th [place] [address] [place] [address] Fransisco Heard MD [address] [facility] [address] [place] [address] Aftercare following right knee joint replacement surgery [...] on file Legal Sex Male 9:07 PM FIBERLINE SUPERVISOR Gender Identity Not on file Sexual [...] and Peyton Paula Professor of Orthopaedic Surgery RLINE SUPERVISOR documented in this encounter Plan of [...] 3 added in this encounter Care Teams Certified Financial Planner Relationship Specialty Start Date End Date Rl Medina DO [address] [id number] PCP - General 08/09/17 05/25/24 documented as of this encounter
--- OUTSIDE RECORDS SUMMARY | 2024-11-05 23:05 | XMS_ITS | Encounter Summary ---
Author Organization [facility] Healthcare Address [address] [place] [address] Care Team Providers Care Security Team Lead Name Role Phone Rl Medina DO Primary Care Provider Reason for Referral * MRI/CAT/PET Scan (Routine) - Closed Specialty Diagnoses / Procedures Referred By Charlesac t Referred To Contact Radiology Diagnoses Primary osteoarthritis of left knee Procedures CT Knee Left WO Contrast Fransisco Heard MD [address] [address] Phone: tel: fax: [place] [address] [place] [phone] Referral ID Status Reason Start Date Expiration Date Visits Re quested Visits Authorized [id number] Closed 08/09/2021 09/08/2022 1 1 ROOM MANAGER Reason for Visit * MRI/CAT/PET Scan (Routine) - Closed Specialty Diagnoses / Procedures Referred By Contac t Referred To Contact Radiology Diagnoses Primary osteoarthritis of left knee Procedures CT Knee Left WO Contrast Fransisco Heard MD [address] [address] Phone: tel: fax: [place] [address] [place] [address] Referral ID Status Reason Start Date Expiration Date Visits Re quested Visits Authorized [id number] Closed 08/09/2021 09/08/2022 1 1 Encounter Details Date Type Department Care Team (Latest Contact Info) Description 09/28/2021 10:27 AM CARDROOM MANAGER - 09/28/2021 11:59 PM CARDROOM MANAGER Hospital Encounter [facility] [address] [place] [address] Fransisco Heard MD [address] [place] [address] Primary osteoarthritis of left knee Discharge Disposition: [...] on file Legal Sex Male 9:07 PM CARDROOM MANAGER Gender Identity Not on file Sexual [...] pain 56 tablet 10/17/2021 02/08/20 22 peg [id number]-h lycerin 1-0.36-0.2 % dropsIndications:D ry Eye Administer [...] Read Routine (OP Routine) 09/28/2021 10:39 AM CARDROOM MANAGER Primary osteoarthritis of left knee documented in this encounter Results * CT Knee Left WO Contrast (09/28/2021 10:39 AM CARDROOM MANAGER) Anatomical Region Laterality Modality Lower Extremities Left Computed Tomog rodrigo 09/28/2021 11:5 7 AM CARDROOM MANAGER Impressions 09/28/2021 12:33 PM CARDROOM MANAGER 1. Severe medial compartment predominant tricompartmental left knee osteoarthritis. Dictated by: Gabriel Zhou M.D. The radiology attending physician has personally reviewed this study, and had reviewed and/or edited this written report and agrees with it. Electronically signed by: Jin Alonso M.D. Narrative 09/28/2021 12:33 PM CARDROOM MANAGER EXAMINATION: CT KNEE LEFT WO CONTRAST HISTORY: Left knee osteoarthritis. Left knee pain. TECHNIQUE: Transaxial computed tomographic imaging of the pelvis, left knee, and bilateral ankles was performed without intravenous contrast according to the custom [employer] protocol. FINDINGS: Surgical clips are present within [...] without intravenous contrast according to the custom [employer] protocol. FINDINGS: Surgical clips are present within [...] knee documented in this encounter Care Teams Security Team Lead Relationship Specialty Start Date End Date Rl Medina DO [address] [place] [address] PCP - General 08/09/17 05/25/24 documented as of this encounter
--- OUTSIDE RECORDS SUMMARY | 2024-11-05 23:06 | XMS_ITS | Encounter Summary ---
Author Organization [facility] Address [address] [place] [address] Phone Care Team Providers Care Care Aid Name Role Phone Rl Medina DO Primary Care Provider [phone] Reason for Referral * Diagnostic Imaging (Routine) - Closed Specialty Diagnoses / Procedures Referred By Manisha t Referred To Contact Diagnoses Left knee pain, unspecified chronicity Procedures XR Knee Left 3 Views Fransisco Heard MD Phone: tel: fax: [facility] Referral ID Status Reason Start Date Expiration Date Visits Re quested Visits Authorized [id number] Closed 07/23/2019 01/31/2021 1 1 * Diagnostic Imaging (Routine) - Closed Specialty Diagnoses / Procedures Referred By Manisha gale Referred To Contact Diagnoses Right knee pain, unspecified chronicity Procedures XR Knee Right 3 Views Fransisco Heard MD Phone: tel: fax: [facility] Referral ID Status Reason Start Date Expiration Date Visits Re quested Visits Authorized [id number] Closed 07/18/2019 01/26/2021 1 1 Reason for Visit * Reason Comments Pain Pain Encounter Details Date Type Department Care Team (Late st Contact Info) Description 07/23/2019 11:45 AM CDT Office Visit [facility] Orthopaedic Surgery [address] [facility] 2nd Floor [address] [place] [address] Fransisco Heard MD [address] [place] [address] Mechanical loosening of internal right knee prosthetic joint, 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
--- OUTSIDE RECORDS SUMMARY | 2024-11-05 23:06 | XMS_ITS | Encounter Summary ---
Author Organization [facility] Facility Care Team Providers Care Generating Plant Superintendent Name Role Phone Unavailable Primary Care Provider Unavailabl e Encounter Details Date Type Department Care Team (Late st Contact Info) Description 10/25/2016 4:53 PM VETERANS' COUNSELOR - 10/25/2016 11:59 PM VETERANS' COUNSELOR Hospital Encounter [facility] Fransisco Heard MD [address] [place] [address] Pain in right knee Social History Tobacco Use Types Packs/Day Years Used Date Smoking Tobacco: Former Sex and Gender Information Value Date Recorded Sex Assigned at Not on file Legal Sex Male 9:07 PM VETERANS' COUNSELOR Gender Identity Not on file Sexual Orientation Not on file documented as of this encounter Plan of Treatment Not on file documented as of this encounter Procedures Procedure Name Priority Date/Time Associated Diagnosis Comments AEROBIC/ANAEROBIC CULTURE AND GRAM STAIN, CDR Routine 10/25/2016 11:37 AM VETERANS' COUNSELOR JOINT FLUID CELL MORPHOLOGIC EXAM Routine 10/25/2016 11:37 AM VETERANS' COUNSELOR FLUID CRYSTAL IDENTIFICATION Routine 10/25/2016 11:37 AM VETERANS' COUNSELOR DISCHARGE LABORATORY CUMULATIVE REPORT 10/25/2016 documented in this encounter Results * (ABNORMAL) Joint fluid cell morphologic exam (10/25/2016 11:37 AM VETERANS' COUNSELOR) Specimen type, fld Synovial R. Knee CDR [...] - 74 % CDR HIST ORICAL RESULTS Medina/Macrophag e, fld 73(H) 0 - 69 % CDR HISTORICAL RESULTS Epithelial cells, fld 1(H) 0 - 0 % CDR HISTORICAL RESULTS Synovial fluid 10/25/2016 11 :37 AM VETERANS' COUNSELOR Fransisco Heard MD LAB BLOOD ORDERABLES Final Result Performing Organization Address [facility] de Phone Number CDR HISTORICAL RESULTS * Fluid crystal identification (10/25/2016 11:37 AM VETERANS' COUNSELOR) Specimen type, fld Synovial CDR HISTORICAL RESULTS Crystals, fld None Seen None Seen CDR HI STORICAL RESULTS Miscellaneous 10/25/2016 11: 37 AM VETERANS' COUNSELOR Fransisco Heard MD LAB BLOOD ORDERABLES Final Result Performing Organization Address [facility] de Phone Number CDR HISTORICAL RESULTS * Aerobic/anaerobic culture and Gram stain (10/25/2016 11:37 AM VETERANS' COUNSELOR) Synovial fluid (Knee, right) 10/25/2016 11:37 AM VETERANS' COUNSELOR 10/25/2016 5:08 PM VETERANS' COUNSELOR Impressions CDR HISTORICAL RESULTS - 10/30/2016 7:49 AM VETERANS' COUNSELOR Specimens submitted from normally sterile body sites [...] CDR HISTORICAL RESULTS - 10/30/2016 7:49 AM VETERANS' COUNSELOR Cytospin gram stain shows: Rare polymorphonuclear leukocytes [...] Pain in right knee documented in this encounter"
--- OUTSIDE RECORDS SUMMARY | 2024-11-05 23:06 | XMS_ITS | Encounter Summary ---
Author Organization [facility] Address [address] [place] [address] Phone Care Team Providers Care Uniform Attendant Name Role Phone Rl Medina DO Primary Care Provider Encounter Details Date Type Department Care Team (Late st Contact Info) Description 09/11/2019 Documentation [facility] Orthopaedic Surgery [facility] Advanced Medicine 6th [place] [address] [place] [phone] Tamia Jay RN Social History Tobacco Use Types Packs/Day Years Used Date Smoking Tobacco: Former Cigarettes 1 11 1 969 - 1980 Smokeless Tobacco: Never Alcohol Use Standard Drinks/Week Comments Yes 14 (1 standard drink = 0.6 oz pu re alcohol) social Sex and Gender Information Value Date Recorded Sex Assigned at Not on file 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 (home) Procedure: R TKA Rev OR Date: 09/30/19 OR Location: [facility] Joint Biofuels Production Associate Name: Poly - spouse PCP: Rl Medina [...] (negative) Illegal Drug Use: Never Functional/Home Assessment field enumerator assistance: Live in available day/night In a: [...] Total Score: (If <9 send to Recon GENERAL LABORER's floor care team for review) (If <6 [...] Proceed with Scheduling Surgery. Tamia Lowe, RN DESIGNER documented in this encounter Plan of Treatment Not on file documented as of this encounter Visit Diagnoses Not on filedocumented in this encounter Care Teams Uniform Attendant Relationship Specialty Start Date End Date Rl Medina DO [address] [place] [address] PCP - General 08/09/17 05/25/24 documented as of this encounter
--- OUTSIDE RECORDS SUMMARY | 2024-11-05 23:06 | XMS_ITS | Encounter Summary ---
Author Organization [facility] Address [address] [place] [address] Phone Care Team Providers Care Seniour Insight Manager Name Role Phone Rl Medina DO Primary Care Provider Encounter Details Date Type Department Care Team (Late st Contact Info) Description 08/25/2019 Telephone [facility] Orthopaedic Surgery [facility] Advanced Medicine 6th [place] [address] [place] [address] Tamia Jay RN Social History Tobacco Use Types Packs/Day Years Used Date Smoking Tobacco: Former Sex and Gender Information Value Date Recorded Sex Assigned at Not on file 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
--- OUTSIDE RECORDS SUMMARY | 2024-11-05 23:06 | XMS_ITS | Encounter Summary ---
Author Organization [facility] Healthcare Address [address] [place] [address] Care Team Providers Care Platen Press Operator Name Role Phone Rl Medina [...] Expiration Date Visits Re quested Visits Authorized [id number] Closed 07/23/2019 01/31/2021 1 1 * Diagnostic Imaging (Routine) - Closed Specialty Diagnoses / Procedures Referred By Contac t Referred To Contact Diagnoses Right knee pain, unspecified chronicity Procedures XR Knee Right 3 Views Fransisco Heard MD Phone: tel: fax: [facility] Referral ID Status Reason Start Date Expiration Date Visits Re quested Visits Authorized [id number] Closed 07/18/2019 01/26/2021 1 1 Reason for Visit * Diagnostic Imaging (Routine) - Closed Specialty Diagnoses / Procedures Referred By Contac t Referred To Contact Diagnoses Right knee pain, unspecified chronicity Procedures XR Knee Right 3 Views Fransisco Heard MD Phone: tel: fax: [facility] Referral ID Status Reason Start Date Expiration Date Visits Re quested Visits Authorized [id number] Closed 07/18/2019 01/26/2021 1 1 Encounter Details Date Type Department Care Team (Latest Contact Info) Description 07/23/2019 11:50 AM CDT - 07/23/2019 11:59 PM CDT Hospital Encounter [facility] [address] [place] [address] Fransisco Heard MD [address] [place] [address] Right knee pain, unspecified chronicity; Left knee pain, unspecified chronicity Discharge Disposition: Discharge to home or self care Social History Tobacco Use Types Packs/Day Years Used Date Smoking Tobacco: Former Sex and Gender Information Value Date Recorded Sex Assigned at Not on file Legal Sex Male 9:07 PM SENIOR DATA WAREHOUSE ARCHITECT Gender Identity Not on file Sexual [...] chronicity documented in this encounter Care Teams Platen Press Operator Relationship Specialty Start Date End Date Rl Medina DO [address] [place] [address] PCP - General 08/09/17 05/25/24 documented as of this encounter
--- OUTSIDE RECORDS SUMMARY | 2024-11-05 23:06 | XMS_ITS | Encounter Summary ---
Author Organization [facility] Healthcare Address [address] [place] [address] Care Team Providers Care Assignment Desk Assistant Name Role Phone Rl Medina DO Primary Care Provider Reason for Referral * Diagnostic Imaging (Routine) - Closed Specialty Diagnoses / Procedures Referred By Manisha gale Referred To Contact Diagnoses Mechanical loosening of internal right knee prosthetic joint, initial encounter (HCC) Procedures XR Bone Length Study Fransisco Heard MD Phone: tel: fax: [address] [phone] Referral ID Status Reason Start Date Expiration Date Visits Re quested Visits Authorized [id number] Closed 09/03/2019 03/14/2021 1 1 Reason for Visit * Diagnostic Imaging (Routine) - Closed Specialty Diagnoses / Procedures Referred By Manisha gale Referred To Contact Diagnoses Mechanical loosening of internal right knee prosthetic joint, initial encounter (HCC) Procedures XR Bone Length Study Fransisco Heard MD Phone: tel: fax: [address] [phone] Referral ID Status Reason Start Date Expiration Date Visits Re quested Visits Authorized [id number] Closed 09/03/2019 03/14/2021 1 1 Encounter Details Date Type Department Care Team (Latest Contact Info) Description 09/03/2019 3:50 PM CDT - 09/03/2019 11:59 PM CDT Hospital Encounter [facility] [address] [place] [address] Fransisco Heard MD [address] [place] [address] Mechanical loosening of internal right knee prosthetic joint, initial encounter ([facility]) Discharge Disposition: Discharge to home or self care Social History Tobacco Use Types Packs/Day Years Used Date Smoking Tobacco: Former Cigarettes 1 11 1 669 - 1355 Smokeless Tobacco: Never Alcohol Use Standard Drinks/Week Comments Yes 14 (1 standard drink = 0.6 oz pu re alcohol) social Sex and Gender Information Value Date Recorded Sex Assigned at Not on file 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
--- OUTSIDE RECORDS SUMMARY | 2024-11-05 23:06 | XMS_ITS | Encounter Summary ---
Author Organization [facility] Address [address] [place] [address] Phone Care Team Providers Care Pairer Odds Name Role Phone Rl Medina DO Primary Care Provider Encounter Details Date Type Department Care Team (Late st Contact Info) Description 07/18/2019 Orders Only [facility] Orthopaedic Surgery [address] [place] [address] 2nd [address] [place] [address] Rima Small RMA Social History Tobacco Use Types Packs/Day Years Used Date Smoking Tobacco: Former Sex and Gender Information Value Date Recorded Sex Assigned at Not on file 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
--- OUTSIDE RECORDS SUMMARY | 2024-11-05 23:06 | XMS_ITS | Encounter Summary ---
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
--- OUTSIDE RECORDS SUMMARY | 2024-11-05 23:06 | XMS_ITS | Encounter Summary ---
Author Organization [facility] Healthcare Address [address] [place] [address] Care Team Providers Care Reheater Helper Name Role Phone No, Physician Primary Care Provider [phone] Encounter Details Date Type Department Care Team (Latest Contact Info) Description 07/30/2017 10:44 AM CDT - 07/30/2017 11:59 PM CDT Hospital Encounter [facility] [phone] Kimberly Heard MD [address] [facility] [address] [place] [address] Discharge Disposition: Discharge to home or self care Social History Tobacco Use Types Packs/Day Years Used Date Smoking Tobacco: Former Sex and Gender Information Value Date Recorded Sex Assigned at Not on file 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 ACC# ??Date Time ??Exam [id number] Jul 30, 2017 10:59:00 23911 Knee 3 views R EXAMINATION: ??Right knee [...] BECK M.D. on Jul 31 2017 ??4:08P [id number] BALDWIN M.D. FINAL REPORT The radiology attending physician has personally reviewed this study, and has reviewed and/or edited this written report and agrees with it. Attending: ??RAUL, ??KIMBERLY Requesting: ??RAUL, ??KIMBERLY Requesting Fax: ?? Attending Fax: ?? Attending ID: ??[id number] Requesting ID: ??[id number] Report To 1 ID: ??[id number] ? Report To 1 Name: ??, ?? Report To 1 FAX: ?? NextGen Order #: ?? Procedure Note Miscellaneous, Not In File / Provider, MD Fidelia - 07/31/2017 DAYDAY BECK M.D. RICHY PULIDO M.D. FINAL REPORT The radiology attending physician has personally reviewed this study, and has reviewed and/or edited this written report and agrees with it. ACC# Date Time Exam [id number] Jul 30, 2017 10:59:00 00379 Knee 3 views R EXAMINATION: Right knee [...] BECK M.D. on Jul 31 2017 4:08P [id number] BALDWIN M.D. FINAL REPORT The radiology attending physician has personally reviewed this study, and has reviewed and/or edited this written report and agrees with it. Attending: KIMBERLY HEARD Requesting: KIMBERLY HEARD Requesting Fax: Attending Fax: Attending ID: [id number] Requesting ID: [id number] Report To 1 ID: [id number] Report To 1 Name: , Report To 1 FAX: NextGen Order #: us Kimberly Heard MD IMG XR PROCEDURES Final Res ult documented in this encounter Visit Diagnoses Not on filedocumented in this encounter Care Teams Reheater Helper Relationship Specialty Start Date End Date No, Physician PCP - General 07/30/17 08/08/17 documented as of this encounter
--- OUTSIDE RECORDS SUMMARY | 2024-11-05 23:06 | XMS_ITS | Encounter Summary ---
Author Organization [facility] Address [address] [place] [address] Phone Care Team Providers Care Laborer Construction Or Leak Gang Name Role Phone Rl Medina DO Primary Care Provider Reason for Referral * Diagnostic Imaging (Routine) - Closed Specialty Diagnoses / Procedures Referred By Manisha gale Referred To Contact Diagnoses Mechanical loosening of internal right knee prosthetic joint, initial encounter (HCC) Procedures XR Bone Length Study Fransisco Heard MD Phone: tel: fax: [facility] [address] [place] [address] Referral ID Status Reason Start Date Expiration Date Visits Re quested Visits Authorized [id number] Closed 09/03/2019 03/14/2021 1 1 Encounter Details Date Type Department Care Team (Late st Contact Info) Description 09/03/2019 Orders Only [facility] Orthopaedic Surgery [address] [facility] 6th [place] [address] [place] [address] Fransisco Heard MD [address] [place] [address] Mechanical loosening of internal right knee prosthetic [...] on file 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
--- OUTSIDE RECORDS SUMMARY | 2024-11-05 23:06 | XMS_ITS | Encounter Summary ---
Author Organization [facility] Facility Care Team Providers Care Auto Headlight Mechanic Name Role Phone Unavailable Primary Care Provider Unavailabl e Encounter Details Date Type Department Care Team (Latest Contact Info) Description 10/25/2016 10:05 AM CARD MOUNTER - 10/25/2016 11:59 PM CARD MOUNTER Hospital [facility] [address] [place] [address] Other specified postprocedural states; Presence of right artificial knee joint Social History Tobacco Use Types Packs/Day Years Used Date Smoking Tobacco: Former Sex and Gender Information Value Date Recorded Sex Assigned at Not on file 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 CARD 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 Gender Identity Not on file Sexual Orientation Not on file documented as of this encounter Plan of Treatment Not on file documented as of this encounter Procedures Procedure Name Priority Date/Time Associated Diagnosis Comments KNEE RADIOGRAPHY, FRONTAL (AP), LATERAL, OBLIQUE Routine 10/25/2016 10:28 AM CARD MOUNTER documented in this encounter Results * KNEE RADIOGRAPHY, FRONTAL (AP), LATERAL, OBLIQUE (10/25/2016 10:28 AM CARD MOUNTER) Anatomical Region Laterality Modality N/A Radiographic Sharona ging 10/25/2016 10:2 8 AM CARD MOUNTER Narrative 10/25/2016 10:47 AM CARD MOUNTER RASHAUN SILVA M.D. FINAL REPORT ACC# ??Date Time ??Exam [id number] Oct 25, 2016 10:28:00 [id number] Knee 3 views R EXAMINATION: ?Right knee [...] SILVA M.D. on Oct 25 2016 10:47A [id number] Procedure Note Provider, MD Fidelia - 03/13/2017 RASHAUN SILVA M.D. FINAL REPORT ACC# Date Time Exam [id number] Oct 25, 2016 10:28:00 43344 Knee 3 views R EXAMINATION: Right knee [...] SILVA M.D. on Oct 25 2016 10:47A [id number] us Historical Provider MD JEFF XR PROCEDURES Final R esult documented in this encounter Visit Diagnoses Diagnosis Other specified postprocedural states Presence of right artificial knee joint documented in this encounter
== END 2024-10-29 23:17 ==
PROVIDERS: Emergency Provider Emergency Medicine; PCP Family Medicine
DX: L98.8 Other specified disorders of the skin and subcutaneous tissue (principal); G82.21 Paraplegia, complete; G40.909 Epilepsy, unspecified, not intractable, without status epilepticus; I10 Essential (primary) hypertension; I27.20 Pulmonary hypertension, unspecified; K21.9 Gastro-esophageal reflux disease without esophagitis; Z96.653 Presence of artificial knee joint, bilateral; Z96.0 Presence of urogenital implants; Z87.442 Personal history of urinary calculi; Z87.440 Personal history of urinary (tract) infections; Z85.820 Personal history of malignant melanoma of skin; Z86.718 Personal history of other venous thrombosis and embolism; Z86.711 Personal history of pulmonary embolism; Z90.79 Acquired absence of other genital organ(s); Z87.891 Personal history of nicotine dependence; Z79.899 Other long term (current) drug therapy
CPT/HCPCS: 99282

== ENCOUNTER 2025-08-25 08:58 | Outpatient (CLI) | payer MEDICARE, SELFPAY ==
--- NOTE | ~2025-08-25 | NM_ITS ---
NM bone 3 phase INDICATION: Right foot ulcer TECHNIQUE: The patient was injected with 23.3 mCi Tc 99m HDP. Blood flow, blood pool and delayed images were performed on the feet and ankles. Gamma camera images of the region of interest and whole body were obtained. COMPARISON: Right foot series dated 08/25/2025 FINDINGS: There is increased perfusion of the right foot and ankle on flow phase compared with the left. On blood pool phase there is markedly asymmetric hyperemia and increased soft tissue activity involving the right ankle and foot most pronounced in the midfoot and hindfoot. Delayed images demonstrate increased tracer uptake involving multiple regions the right foot and ankle including periarticular and subarticular areas. Uptake is patchy and not confined to single osseous focus. There is mild uptake on delayed images in the left ankle foot, likely degenerative. IMPRESSION: 1: Diffuse asymmetric increased uptake involving the right ankle and foot on all 3 phases, indicating hyperemia and increased bone turnover. The distribution is multifocal and not localized to single bone, which is more suggestive is severe inflammatory or degenerative change and/or neuropathic (Charcot) arthropathy rather than focal osteomyelitis. Superimposed soft tissue infection or cellulitis cannot be excluded in the region of ulcer. Correlation with clinical findings and/or MRI is recommended to evaluate for possible coexistent osteomyelitis. Reviewed, dictated and finalized at location O. IMPRESSION: 1: Diffuse asymmetric increased uptake involving the right ankle and foot on a ll 3 phases, indicating hyperemia and increased bone turnover. The distribution is multifocal and not localized to single bone, which is more suggestive is se [place] inflammatory or degenerative change and/or neuropathic (Charcot) arthropat hy rather than focal osteomyelitis. Superimposed soft tissue infection or cellu litis cannot be excluded in the region of ulcer. Correlation with clinical find ings and/or MRI is recommended to evaluate for possible coexistent osteomyeliti s.
--- NOTE | ~2025-08-25 | XR_ITS ---
EXAMINATION: XR foot RT min 3V, 08/25/2025 14:50 CDT HISTORY: RIGHT FOOT ULCER COMPARISON: No comparisons available. Findings: Severe osteopenia. No gross osseous destruction or fracture however evaluation is made. Severe degenerative changes. Soft tissues unremarkable. Impression: Limited study. No evidence of osteomyelitis however if there remains clinical concern contrast-enhanced MRI is recommended Reviewed, dictated and finalized at location P. Impression: Limited study. No evidence of osteomyelitis however if there remains clinical c oncern contrast-enhanced MRI is recommended
--- NOTE | ~2025-08-25 | XR_ITS ---
EXAMINATION: XR foot LT min 3V, 08/25/2025 14:50 CDT HISTORY: RIGHT FOOT ULCER COMPARISON: No comparisons available. Findings: Severe osteopenia. No acute fracture or osseous destruction Moderate to severe degenerative changes. Soft tissues unremarkable. Impression: Limited study. If there remains concern for osteomyelitis contrast-enhanced MRI is recommended Reviewed, dictated and finalized at location P. Impression: Limited study. If there remains concern for osteomyelitis contrast-enhanced MRI is recommended
--- OUTSIDE RECORDS SUMMARY | 2025-08-25 09:51 | XMS_ITS | Clinical Summary ---
Author Organization [facility] Address [address] [facility] [place] [address] Care Team Providers Care Underground Repairer Name Role Phone Rl Medina MD Primary Care Provider [phone] Source Comments [facility],non-owned Affiliates and Associated Physician Practices is amultiple site organization consisting of ambulatory clinics and hospital sitesin [place], [place], [place] and [place]. This disclosure is being madepursuant to the Care Everywhere program and may not contain all information available regarding this patient. Last updated 18.[facility] Allergies No known active allergies Medications * Be aware that medications may not be up to date on this document. Alwaysverify current medications with the patient. DILT-XR 240 MG capsule Take 1 capsule [...] at Not on file Legal Sex Male 11:50 AM CDT Gender Identity Not on file Sexual Orientation Not on file Last Filed Vital Signs Vital Sign Reading Time Taken Comments Blood Pressure - - Pulse - - Temperature - - Respiratory Rate - - Oxygen Saturation - - Inhaled Oxygen Concentration - - Weight 86.2 kg (190 lb) 10/25/2018 12:22 PM SHIPPING TEAM LEADER Height 175.3 cm (5' 9) 10/25/2018 12:22 PM SHIPPING TEAM LEADER Body Mass Index 28.06 10/25/2018 12:22 PM SHIPPING TEAM LEADER Plan of Treatment Health Maintenance Due Date Last Done Comments COLOGUARD (AGES 45-75) - COL ON CA SCREENING 1950 COLON MONITORING 1950 COLONOSCOPY - COLON CA SCREENING 1950 CT COLONOGRAPHY - COLON CA SCREENING 1950 Colorectal Cancer Screening 1950 FIT - COLON CA SCREENING 1950 FLEX SIG - COLON CA SCREENING 1950 LIPID TESTING 1950 HEPATITIS C SCREENING 06/13/1969 DTAP/TDAP/TD VACCINES (1 - Tdap) 1970 PNEUMOCOCCAL VACCINE 50+ (1 of 1 - PCV) 2001 ZOSTER VACCINE (1 of 2) 2001 SCREENING FOR DIABETES 10/25/2018 DEPRESSION SCREENING 11/05/2024 COVID-19 VACCINE ( - 2023-2 5 season) 2025 INFLUENZA VACCINE (#1) 2025 Respiratory Syncytial Virus (RSV) Vaccine Pt: or [...] patient's age to complete this topic MENINGOCOCCAL (Group B) VACC INE SHARED DECISION-MAKING Aged Out No longer eligibl e based on patient's age to complete this topic MENINGOCOCCAL GROUPS A/C/Y/W VACCINE Aged Out No longer eligible b ased on patient's age to complete this topic Insurance MEDICARE [facility] Care Teams Underground Repairer Relationship Specialty Start Date End Date Rl Medina MD [address] [place] [phone] PCP - General Family Medicine 04/25/16
--- OUTSIDE RECORDS SUMMARY | 2025-08-25 09:51 | XMS_ITS | Encounter Summary ---
Author Organization [facility] Address [address] [place] [address] Phone Care Team Providers Care Hotel Reservation Agent Name Role Phone Rl Medina DO Primary Care Provider Em Witt RN Unavailable [phone] Marlen Gray RN Unavailable No, Physician Primary Care Provider [phone] Encounter Details Date Type Department Care Team (Late st Contact Info) Description 07/06/2023 Documentation [facility] Medicine Urology [address] [facility] Medical Office [address] [place] [address] Pan Irene MD [address] [facility] [address] [place] [address] Social History Tobacco Use Types [...] on file 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 Gender Identity Not on file Sexual Orientation Not on file documented as of this encounter Plan of Treatment Not on file documented as of this encounter Visit Diagnoses Not on filedocumented in this encounter Additional Health Concerns Infection Onset Date Last Indicated Resolved Time COVID: Suspected 11/14/2024 11/14/2024 11/14/2024 5:31 PM SUGGESTION CLERK documented as of this encounter Care Teams Hotel Reservation Agent Relationship Specialty Start Date End Date Rl Medina DO [address] [place] [address] PCP - General 08/09/17 05/25/24 No, Physician PCP - General 05/26/24 Em Witt RN [address] [address] [facility] Outpatient Senior Treasury Consultant 10/30/23 10/30/23 Marlen Gray RN [address] [address] [facility] Outpatient Senior Treasury Consultant 10/31/23 11/15/23 documented as of this encounter
--- OUTSIDE RECORDS SUMMARY | 2025-08-25 09:51 | XMS_ITS | Encounter Summary ---
Author Organization [facility] Healthcare Address [address] [place] [address] Care Team Providers Care Coil Finisher Name Role Phone No, Physician Primary Care Provider [phone] Encounter Details Date Type Department Care Team (Late st Contact Info) Description 02/09/2025 Telephone [facility] Imaging [address] [place] [address] Anjana Alvarado RN Social History Tobacco Use Types Packs/Day Years Used Date Smoking Tobacco: Former Cigarettes 1 11 969 - 1979 Passive Smoke Exposure: Never Smokeless Tobacco: Never Alcohol Use Standard Drinks/Week Comments Yes 14 (1 standard drink = 0.6 oz pu re alcohol) social [facility] Utilities Answer Date Recorded In the past 12 months has [employer], gas, oil, or water [employer] threatened to shut off services in your home? No 11/14/2024 Social Connection and Isolation Panel Answer Date Recorded In a typical week, how many times do you talk on the phone with family, friends, or neighbors? More than three times a week 11/14/2024 How often do you get togethe r with friends or relatives? More than three times a week 11/14/2024 How often do you attend chur ch or confucianist services? Never 11/14/2024 Do you belong to any clubs o r organizations such as cheondoism groups, unions, fraternal or athletic groups, or school groups? No 11/14/2024 How often do you attend meet ings of the clubs or organizations you belong to? Never 11/14/2024 Are you , , di vorced, , never , or living with a partner? 11/14/2024 AUDIT-C Answer Date Recorded Q1: How often [...] care, and heating? Not hard at all 11/14/2024 PHQ-2 Answer Date Recorded PHQ-2 Total Score 0 12/27/2023 Hunger Vital Sign Answer Date Recorded Within the past 12 months, y ou worried that your food would run out before you got the money to buy more. Never true 11/14/19 25 Within the past 12 months, t he food you bought just didn't last and you didn't have money to get more. Never true 11/14/2024 PRAPARE - Transportation Answer Date Re corded In the past 12 months, has l ack of transportation kept you from medical appointments or from getting medications? No 11/05 In the past 12 months, has l ack of transportation kept you from meetings, work, or from getting things needed for daily living? No 11/14/2024 Housing Stability Vital Sign Answer Shalom e [...] in a correction (including now)? No 12/27/2023 Housing Stability Vital Sign Answer Shalom e Recorded In the last 12 months, was t here a time when you were not able to pay the mortgage or rent on time? No 11/14/2024 In the past 12 months, how m any times have you moved where you were living? 0 11/14/2024 At any time in the past [address] [facility], were you homeless or living in a correction (including now)? No 11/14/2024 Personal Safety Answer Date Recorded Have you ever been in or are you currently in a harmful physical or emotional relationship or is someone making you feel afraid or unsafe? Denies 11/27/2024 Education Answer Date Recorded What is the highest level of school you have completed or the highest degree you have received? 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
--- OUTSIDE RECORDS SUMMARY | 2025-08-25 09:51 | XMS_ITS | Encounter Summary ---
Author Organization [facility] Healthcare Address [address] [place] [address] Care Team Providers Care Vocational Adviser Name Role Phone No, Physician Primary Care Provider [phone] Encounter Details Date Type Department Care Team [...] Recorded In the past 12 months has [employer], gas, oil, or water [employer] threatened to shut off services in your home? 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
--- OUTSIDE RECORDS SUMMARY | 2025-08-25 09:51 | XMS_ITS | Clinical Summary ---
Author Organization [facility] Address [address] [place] [address] Care Team Providers Care Social Group Worker Name Role Phone SudeeprashaunRl Primary Care Provider [phone] Fransisco Heard MD Unavailable [phone] Medications omeprazole 20 MG capsuleIndicat ions:gastric reflux [...] 25 mg by mouth daily. Indications: hypertension 9 Active Loratadine 10 MG CapIndications :allergies Take [...] mouth 2 (two) times daily. Indications: anticoagulant 9 Active acetaminophen (TYLENOL) 500 MG tabletIndicati ons:fever, [...] on file Legal Sex Male 11:34 PM OSTOMY RN Gender Identity Not on file Sexual Orientation Not on file Last Filed Vital Signs Vital Sign Reading Time Taken Comments Blood Pressure 128/76 10/16/2019 12:00 AM OSTOMY RN Pulse 60 10/14/2019 12:00 AM OSTOMY RN Temperature 36.9 C (98.4 F) 10/16/2019 12:00 AM OSTOMY RN Respiratory Rate 18 10/16/2019 12:00 AM OSTOMY RN Oxygen Saturation 99% 10/06/2019 12:50 PM OSTOMY RN Inhaled Oxygen Concentration - - Weight - - Height - - Body Mass Index - - Plan of Treatment Health Maintenance Due Date Last Done Comments Colorectal Cancer Screening Colonoscopy (10 Years) 1950 Hepatitis C 1969 DTaP, Tdap and Td Vaccines ( 1 - Tdap) 1970 Pneumococcal Vaccine: 50+ Ye ars (1 of 1 - PCV) 2001 Zoster Vaccines (1 of 2) 2001 Annual Medicare Wellness Visit 2016 COVID-19 Vaccine ( - 2023-2 5 season) 2025 Influenza Adult (#1) 2025 RSV Immunization or 60+ Years (1 - 1-dose 75+ series) 2026 Meningococcal B Vaccine Aged Out No l onger eligible based on patient's age to complete this topic Meningococcal Vaccine Aged Out No jesse marga eligible based on patient's age to complete this topic RSV Immunizations Under 20 Months Aged Out No longer eligible based on patient's age to complete this topic Insurance MEDICARE Care Teams Social Group Worker Relationship Specialty Start Date End Date Rl Medina DO PCP - General FAMILY PRACTICE 10/01/19 Fransisco Heard MD SURGERY 10/01/19
--- OUTSIDE RECORDS SUMMARY | 2025-08-25 09:51 | XMS_ITS ---
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 Impaired mobility and ADLs 10/24/2024 Nephrolithiasis 12/25/2023 DVT (deep venous thrombosis) 11/29/2023 Assessment & Plan (12/10/2023 2:44 PM OTR FLATBED DRIVER): Patient with complex history with cardiac arrest [...] 11/29/2023 Assessment & Plan (11/29/2023 7:17 PM OTR FLATBED DRIVER): - Stable Hgb ~8 - Maintain Hgb > 7 Paraspinal hematoma 11/29/2023 Assessment & Plan (12/01/2023 12:39 PM OTR FLATBED DRIVER): - Occurred on therapeutic anticoagulation in setting of recent lumbar decompression, with subsequent LE paralysis and emergent hematoma evacuation on 11/07 - Directly-admitted from [facility] - PT/OT - Orthopedics following - had sutures removed on 11/30 - note had some drainage from sutures, plan 7-10d course SSTI antibiotics using Bactrim for now - anticoagulation as elsewhere (see DVT) Hyponatremia 11/29/2023 Assessment & Plan (12/07/2023 11:50 AM OTR FLATBED DRIVER): Improved. Na low 130s over the past week, has improved with improved oral intake and remains in normal range with initiation of diuretic therapy. - CTM on lasix Elevated transaminase level 11/29/2023 Assessment & Plan (12/04/2023 11:59 AM OTR FLATBED DRIVER): - AST 65, ALT 80, new on arrival- Unclear etiology at this time - possibly from IVC compression/distention in setting of potential thrombi? - Improving - will hold off on further imaging Lower extremity edema 11/29/2023 Assessment & Plan (12/01/2023 12:38 PM OTR FLATBED DRIVER): - Eval/mgt per above. NT-proBNP 105. Scrotal swelling 11/29/2023 Assessment & Plan (12/10/2023 2:44 PM OTR FLATBED DRIVER): - In setting of presumed DVT - no evidence of infection on exam - Scrotal Sling - Maintain sofia catheter - DVT mgt per above - for edema, will continue IV lasix 40 mg BID, monitor electrolytes - at discharge will discharge on PO lasix 40 mg BID Seizure 11/29/2023 Assessment & Plan (11/29/2023 7:16 PM OTR FLATBED DRIVER): - Patient developed reported seizure on 10/23 during or prior to cardiac arrest with bilateral SDH noted on imaging - placed on keppra through follow-up with NSGY next month Prediabetes 11/29/2023 Assessment & Plan (11/29/2023 7:22 PM OTR FLATBED DRIVER): - Was on mounjaro as outpatient - has required intermittent SSI at [facility] - Diabetic diet, SSI ordered Kidney stone 11/09/2023 Paraplegia 11/07/2023 Assessment & Plan (11/29/2023 7:15 PM OTR FLATBED DRIVER): - Patient with paralysis of LE following recent spinal hematoma s/p emergent evacuation on 11/07 - Ongoing 11/09 strength of LE, sensation intact - Fall precautions Pulmonary embolism 10/26/2023 Assessment & Plan (11/29/2023 7:16 PM OTR FLATBED DRIVER): - Eval/mgt per above Assessment & Plan (10/26/2023 5:11 PM OTR FLATBED DRIVER): Patient with new PE on CT PE [...] 10/15/2023 Assessment & Plan (10/20/2023 2:57 PM OTR FLATBED DRIVER): Likely post procedure complication. Urology following - CT urogram on 10/16 notes presence of L perinephric hematoma - Continue to trend white count, renal function and fever curve Ureteral colic 10/13/2023 UTI (urinary tract infection) 10/13/2023 Assessment & Plan (12/10/2023 2:43 PM OTR FLATBED DRIVER): - Patient diagnosed with UTI in setting [...] urology. Assessment & Plan (10/20/2023 2:58 PM OTR FLATBED DRIVER): - Complicated UTI with the presence of left ureteral stone and Pyelitis - urine culture grew E-coli which is pansusceptible. - Discussion with urology and orthopedic surgery: continue Keflex 500 mg q6hr as it appears patient will stay in-house until OR on 10/22-10/23 -Antibiotics as above. Hydronephrosis with urinary obstruction due to renal calculus 10/12/2023 Assessment & Plan (12/07/2023 1:48 PM OTR FLATBED DRIVER): - Patient with noted progressed hydronephrosis during [...] back Assessment & Plan (10/19/2023 12:54 PM OTR FLATBED DRIVER): Presented with generalized weakness with fever and [...] 10/08/2023 Assessment & Plan (10/20/2023 2:57 PM OTR FLATBED DRIVER): He has been planned for plan for [...] (10/18/2022): Added automatically from request for surgery [id number] Bladder neck obstruction 10/17/2022 Lesion of urinary bladder 10/17/2022 Prostate cancer 10/17/2022 Assessment & Plan (11/29/2023 7:14 PM OTR FLATBED DRIVER): - s/p prostatectomy Assessment & Plan (10/13/2023 5:39 AM OTR FLATBED DRIVER): S/p postprostatectomy HTN (hypertension) 10/10/2021 Assessment & Plan (11/29/2023 7:14 PM OTR FLATBED DRIVER): - Cont diltiazem - home ARB has been on hold at [facility] - continue to hold here initially Assessment & Plan (10/15/2023 9:11 AM OTR FLATBED DRIVER): Hold home irbesartan Restart diltiazem xl Risk factors for obstructive sleep apnea 021 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 Past Treatment and Therapy Plans No past plan information found. Lifetime Dose Tracking * Chemical Lifetime Dose Automatic Entry Manual Entr y Fluoro Time 74.103 minutes 74.103 minutes 0 minutes Air kerma at the reference point (Ka,r) 2,109.35 mGy 2 ,109.35 mGy 0 mGy DLP 14,575 mGycm 14,575 mGycm 0 mGycm
--- OUTSIDE RECORDS SUMMARY | 2025-08-25 09:51 | XMS_ITS | Patient Health Record ---
Author Organization [facility] Address [address] [place] [id number] Care Team Providers Care Herb Counselor Name Role Phone PCP, Does not have a Primary Care Provider Unava ilable Allergies No Known Allergies Reason For Referral No Information Medications Medication SIG (Take, Route, Frequency, Duration) Notes Start Date End Date Status Acyclovir Active Dilt-XR Active HYDROcodone-Acetaminophen 5-325 MG 1 tablet as needed Orally every 6 hrs; Duration: 4 days 08/14/2023 Active Meloxicam 15 MG 1 tablet Orally Once a day; Duration: 14 days 08/14/2023 Active Irbesartan Active Social [...] Coverage End Date [employer] [address] [address] [place] [address] [id number] JOSE SHANKAR Self - patient is the insured Medications Administered Medication Instructions Date of Administration Dosage Notes Ketorolac 30mg/mL (Inj) 08/14/2023 30 mg Medical (General) History Medical History History ICD Code Hypertension Knee Replacement Surgery Prostate Cancer 12 years ago
--- OUTSIDE RECORDS SUMMARY | 2025-08-25 09:51 | XMS_ITS | Clinical Summary ---
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 Name Role Phone No, Physician Primary Care Provider [phone] Allergies No known active allergies Medications bisacodyL (DULCOLAX) 10 mg suppositoryIndicat ions:constipation Insert 1 suppository (10 mg total) into the rectum daily as needed for constipation 12/10/[address] (PROTONIX) 40 mg EC tabletIndications: Treatment of Non-Bleeding Gastric Disorder Take 1 tablet (40 mg total) by mouth daily 12/11/19 24 Active Additional Information Patient taking differently:40 mg oralEvery morning, Indications: Treatment of Non-Bleeding Gastric Disorder, acid reflux, Informant: [facility], Reported on 11/27/2024 senna-docusate (PERICOLACE) 8.6-50 mg Take 1 tablet by mouth nightly 12/10/19 24 Active Additional Information Patient taking differently:1 tablet oralDaily (early AM), Indications: constipation, Informant: [facility], Reported on 11/27/2024 acyclovir (ZOVIRAX) 400 mg tabletIndications: Chronic Suppression Take 1 tablet (400 mg total) by mouth 2 (two) times a day 12/10/19 24 Active ascorbic acid (VITAMIN C ORAL)Indications:s upplement Take 1 tablet by mouth 2 (two) times a day Active acetaminophen (TYLENOL) 500 mg tabletIndications: Pain Take 1 tablet (500 mg total) by mouth every 6 (six) hours as needed for pain 30 tablet 12/27/19 24 Active Additional Information Patient taking differently:500 mg oral Every 6 hours PRN, pain,(No indications reported), Informant: [facility], Reported on 11/27/2024 multivitamin tabletIndications: wound healing Take 1 tablet by mouth furniture 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 consultant before breakfast Active Mounjaro 10 mg/0.5 mL pen injector 12/27/19 24 Active ondansetron ODT (ZOFRAN-ODT) 4 mg disintegrating tablet Take 1 tablet (4 mg total) by mouth every 8 (eight) hours as needed for vomiting or nausea 01/10/20 24 Active tamsulosin (FLOMAX) 0.4 mg extended release capsule Take 1 capsule (0.4 mg total) by mouth daily 30 capsule 11 02/27/20 24 Active cetirizine (ZyrTEC) 10 mg tabletIndications: allergeis Take 1 tablet (10 mg total) by mouth daily before breakfast 0 03/17/20 24 Active eszopiclone (LUNESTA) 1 mg tabletIndications: Insomnia Take 1 tablet (1 mg total) by mouth nightly 03/11/20 24 Active miconazole 2 % creamIndications:r edness, apply to groin Apply 1 Application topically 2 (two) times a day Active menthol-zinc oxide 0.44-20.6 % ointment Apply 1 Application topically 2 (two) times a day as needed (apply to buttocks) Active aluminum-magnesium hydroxide-simethic one (MAALOX) suspension 200-200-20 mg/5 mL Take 30 mL by mouth 2 (two) times a day as needed (mix with calprotect and apply to buttocks) Active Lactobacillus acidophilus capsuleIndications :uti Take 1 tablet by mouth 2 (two) times a day Active Xarelto 20 mg tabletIndications: DVT Take 1 tablet (20 mg total) by mouth daily With a large meal 90 tablet 3 09/10/20 24 Active furosemide (LASIX) 40 mg tablet Take 1 tablet (40 mg total) by mouth daily 30 tablet 11/30/19 25 Active potassium chloride ER (KLOR-CON) 20 mEq CR tablet Take 1 tablet (20 mEq total) by mouth daily 30 tablet 12/04/19 25 Active potassium chloride ER (KLOR-CON) 20 mEq CR tablet Take 2 tablets (40 mEq total) by mouth daily for 3 days 6 tablet 12/01/19 Active Active Problems Problem Noted Date Diagnosed Date Hypokalemia 11/27/2024 Gastrointestinal hemorrhage, unspecified gastrointestinal hemorrhage type 11/13/2024 Melena 11/13/2024 Neurogenic bladder 10/24/2024 Neurogenic bowel 10/24/2024 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 Impaired mobility and ADLs 10/24/2024 Nephrolithiasis 12/25/2023 DVT (deep venous thrombosis) 11/29/2023 Assessment & Plan (12/10/2023 2:44 PM BRAND SPECIALIST): Patient with complex history with cardiac arrest [...] 11/29/2023 Assessment & Plan (11/29/2023 7:17 PM BRAND SPECIALIST): - Stable Hgb ~8 - Maintain Hgb > 7 Paraspinal hematoma 11/29/2023 Assessment & Plan (12/01/2023 12:39 PM BRAND SPECIALIST): - Occurred on therapeutic anticoagulation in setting of recent lumbar decompression, with subsequent LE paralysis and emergent hematoma evacuation on 11/07 - Directly-admitted from [facility] - PT/OT - Orthopedics following - had sutures removed on 11/30 - note had some drainage from sutures, plan 7-10d course SSTI antibiotics using Bactrim for now - anticoagulation as elsewhere (see DVT) Hyponatremia 11/29/2023 Assessment & Plan (12/07/2023 11:50 AM BRAND SPECIALIST): Improved. Na low 130s over the past week, has improved with improved oral intake and remains in normal range with initiation of diuretic therapy. - CTM on lasix Elevated transaminase level 11/29/2023 Assessment & Plan (12/04/2023 11:59 AM BRAND SPECIALIST): - AST 65, ALT 80, new on arrival- Unclear etiology at this time - possibly from IVC compression/distention in setting of potential thrombi? - Improving - will hold off on further imaging Lower extremity edema 11/29/2023 Assessment & Plan (12/01/2023 12:38 PM BRAND SPECIALIST): - Eval/mgt per above. NT-proBNP 105. Scrotal swelling 11/29/2023 Assessment & Plan (12/10/2023 2:44 PM BRAND SPECIALIST): - In setting of presumed DVT - no evidence of infection on exam - Scrotal Sling - Maintain sofia catheter - DVT mgt per above - for edema, will continue IV lasix 40 mg BID, monitor electrolytes - at discharge will discharge on PO lasix 40 mg BID Seizure 11/29/2023 Assessment & Plan (11/29/2023 7:16 PM BRAND SPECIALIST): - Patient developed reported seizure on 10/23 during or prior to cardiac arrest with bilateral SDH noted on imaging - placed on keppra through follow-up with NSGY next month Prediabetes 11/29/2023 Assessment & Plan (11/29/2023 7:22 PM BRAND SPECIALIST): - Was on mounjaro as outpatient - has required intermittent SSI at [facility] - Diabetic diet, SSI ordered Kidney stone 11/09/2023 Paraplegia 11/07/2023 Assessment & Plan (11/29/2023 7:15 PM BRAND SPECIALIST): - Patient with paralysis of LE following recent spinal hematoma s/p emergent evacuation on 11/07 - Ongoing 11/09 strength of LE, sensation intact - Fall precautions Pulmonary embolism 10/26/2023 Assessment & Plan (11/29/2023 7:16 PM BRAND SPECIALIST): - Eval/mgt per above Assessment & Plan (10/26/2023 5:11 PM BRAND SPECIALIST): Patient with new PE on CT PE [...] 10/15/2023 Assessment & Plan (10/20/2023 2:57 PM BRAND SPECIALIST): Likely post procedure complication. Urology following - CT urogram on 10/16 notes presence of L perinephric hematoma - Continue to trend white count, renal function and fever curve Ureteral colic 10/13/2023 UTI (urinary tract infection) 10/13/2023 Assessment & Plan (12/10/2023 2:43 PM BRAND SPECIALIST): - Patient diagnosed with UTI in setting [...] urology. Assessment & Plan (10/20/2023 2:58 PM BRAND SPECIALIST): - Complicated UTI with the presence of left ureteral stone and Pyelitis - urine culture grew E-coli which is pansusceptible. - Discussion with urology and orthopedic surgery: continue Keflex 500 mg q6hr as it appears patient will stay in-house until OR on 10/22-10/23 -Antibiotics as above. Hydronephrosis with urinary obstruction due to renal calculus 10/12/2023 Assessment & Plan (12/07/2023 1:48 PM BRAND SPECIALIST): - Patient with noted progressed hydronephrosis during [...] back Assessment & Plan (10/19/2023 12:54 PM BRAND SPECIALIST): Presented with generalized weakness with fever and [...] 10/08/2023 Assessment & Plan (10/20/2023 2:57 PM BRAND SPECIALIST): He has been planned for plan for [...] (10/18/2022): Added automatically from request for surgery [id number] Bladder neck obstruction 10/17/2022 Lesion of urinary bladder 10/17/2022 Prostate cancer 10/17/2022 Assessment & Plan (11/29/2023 7:14 PM BRAND SPECIALIST): - s/p prostatectomy Assessment & Plan (10/13/2023 5:39 AM BRAND SPECIALIST): S/p postprostatectomy HTN (hypertension) 10/10/2021 Assessment & Plan (11/29/2023 7:14 PM BRAND SPECIALIST): - Cont diltiazem - home ARB has been on hold at [facility] - continue to hold here initially Assessment & Plan (10/15/2023 9:11 AM BRAND SPECIALIST): Hold home irbesartan Restart diltiazem xl Risk factors for obstructive sleep apnea 021 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 Overview (08/07/2019): Added automatically from request for surgery [id number] Presence of right artificial knee joint 10/25/20 Primary osteoarthritis of left knee 10/25/2018 Localized adiposity 07/17/2018 Knee pain 10/24/2016 Immunizations Immunization Administration Dates Next Due Influenza, Quad, Adjuvantated, [...] VENOGRAM Bilateral ABSCESS CATHETER INJECTION 10/13/2024 N/A ABSCESS CATHETER INJECTION 01/14/2025 N/A Medical History Medical History Date Comments GERD (gastroesophageal reflu x disease) Hypertension Seasonal allergies Arthritis OA Personal history of prostate cancer History of melanoma Cancer (HCC) prostate and melonomia Kidney stone Pneumonia Allergic rhinitis Cauda equina compression (HCC) Pulmonary embolism DVT (deep venous thrombosis) Paraspinal hematoma 11/29/2023 Cardiac complication 10/23/2023 possible [...] = 0.6 oz pu re alcohol) social [facility] Utilities Answer Date Recorded In the past 12 months has [place], gas, oil, or water Night Zookeeper threatened to shut off services in your [...] week 11/14/2024 How often do you attend formerly [facility] or sikh services? Never 11/14/2024 Do you belong to [...] a skilled nursing (including now)? No 12/27/2023 Housing Stability Vital Sign Answer Shalom e Recorded In the last 12 months, was t here a time when you were not able to pay the mortgage or rent on time? No 11/14/2024 In the past 12 months, how m any times have you moved where you were living? 0 11/14/2024 At any time in the past 12 m [facility], were you homeless or living in a skilled nursing (including now)? 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 Not on file Not on file Not on file Obstetrics History Last Filed Vital Signs Vital Sign Reading Time Taken Comments Blood Pressure 140/76 01/14/2025 1:07 PM CDT Pulse 70 01/14/2025 1:07 PM CDT Temperature 36.6 C (97.9 F) 01/14/2025 1:08 PM CDT Respiratory Rate 15 01/14/2025 1:07 PM CDT Oxygen Saturation 98% 01/14/2025 1:07 PM CDT Inhaled Oxygen Concentration - - Weight 95.5 kg (210 lb 8.6 oz) 11/30/2024 3:23 A M BRAND SPECIALIST Height 172.7 cm (5' 8) 11/30/2024 3:23 AM BRAND SPECIALIST Body Mass Index 32.01 11/30/2024 3:23 AM BRAND SPECIALIST Plan of Treatment Health Maintenance Due Date Last Done Comments Colon Cancer Screening-Colonoscopy 1950 Hepatitis C Screening 1950 Hepatitis B Screening 1969 Well Visit 65+ 2016 Depression Screening 11/28/2024 11/28/2023, 11/09/2023, 11/07/2023 Covid-19 Vaccine (2024-2 6 season) 2025 10/19/2021, 06/20/2021, 12/31/2020, Additional history exists Influenza Vaccine (#1) 2025 , 08/20/2021, 08/05/2021, Additional history exists Fall Risk Assessment 11/30/2025 11/30/2024 DTaP/Tdap/Td Vaccine (2 - Td or Tdap) 02/09/2031 02/09/2021 Pneumococcal vaccine 65+ Completed 018, 07/26/2017, 06/23/2016 Zoster Vaccine Completed 05/16/2021, 02/18/2021 Abdominal Aortic Aneurysm (A AA) Screen Completed 11/13/2024, 09/29/2024, 07/02/2024, Additional history exists Medical Devices Implanted Type Area Staff Auditor Device Identifier Shelf Expiration Date Model / Serial / Lot [employer] 6197-9-010 Simplex P Full Dose Radiopaque Preblend Cement Bone Tobramycin - S0 - [id number] Implanted:Qty: 2 on 09/30/2019 by Fransisco Heard MD at [facility] Bone Cement Right: Knee [employer] [id number] 11/04/2020 6197-9-010 / 0 / [id number] [employer]hew/[employer]/O rtho [id number] Kandace Ii 15mm Constrain Knee 5-6 Insert Articular Uhmwpe - S0 - [id number] Implanted:Qty: 1 on 09/30/2019 by Fransisco Heard MD at [facility] Other - see comments Right: Knee [employer]/ Ortho 03/13/2029 [id number] / 0 / [id number] [employer]/O rtho [id number] Legion 10mm Screw Knee 6 Wedge Femoral - S0 - [id number] Implanted:Qty: 1 on 09/30/2019 by Fransisco Heard MD at [facility] Other - see comments Right: Knee [employer]/ Ortho [id number] 10/04/2022 [id number] / 0 / [employer]/O rtho [id number] Legion Constrain Knee Right 6 Component Femoral Oxinium - S0 - [id number] Implanted:Qty: 1 on 09/30/2019 by Fransisco Heard MD at [facility] Other - see comments Right: Knee [employer]/ Ortho 05/26/2028 [id number] / 0 / [id number] [employer]/O rtho [id number] Legion 5mm Alcon Step Knee Right Medial Left Lateral 5-6 Wedge - S0 - [id number] Implanted:Qty: 1 on 09/30/2019 by Fransisco Heard MD at [facility] Other - see comments Right: Knee [employer]/ Ortho [id number] 06/03/2024 [id number] / 0 / [employer]/O rtho [id number] Legion 15mm 160mm Press Fit Knee Stem Femoral - S0 - [id number] Implanted:Qty: 1 on 09/30/2019 by Fransisco Heard MD at [facility] Other - see comments Right: Knee [employer]/ Ortho 01/09/2028 [id number] / 0 / [id number] [employer]/O rtho [id number] Legion 10mm Screw Knee 6 Wedge Femoral - S0 - [id number] Implanted:Qty: 1 on 09/30/2019 by Fransisco Heard MD at [facility] Other - see comments Right: Knee [employer]/ Ortho 03/04/2020 [id number] / 0 / [id number] [employer]/O rtho [id number] Legion Revision Knee Right 5 Baseplate Tibial - S0 - [id number] Implanted:Qty: 1 on 09/30/2019 by Fransisco Heard MD at [facility] Other - see comments Right: Knee [employer] Ortho [id number] 08/28/2026 [id number] / 0 / [id number] [employer]/O rtho [id number] Legion 15mm 160mm Press Fit Knee Stem Femoral - S0 - [id number] Implanted:Qty: 1 on 09/30/2019 by Fransisco Heard MD at [facility] Other - see comments Right: Knee [employer]/ Ortho [id number] 06/21/2028 [id number] / [id number] [employer] 5517-F-501 Triathlon Cruciate Retain Bead Knee Left 5 Component Femoral Pa - Sn/A - [id number] Implanted:Qty: 1 on 10/17/2021 by Laz Nolasco MD at [facility] Other - see comments Left: Knee [employer] [id number] 08/09/2026 5517-F-501 / N/A / [id number] [employer] 5536-B-600 Triathlon Knee 6 Baseplate Tibial Tritanium - Sn/A - [id number] Implanted:Qty: 1 on 10/17/2021 by Laz Nolasco MD at [facility] Other - see comments Left: Knee [employer] [id number] 07/24/2026 5536-B-600 / N/A / [id number] [employer] 4719-W-848-E Insert Tibial Triathlon 6 H10mm Knee Bearing Condylar Stabilize Sterile - Sn/A - [id number] Implanted:Qty: 1 on 10/17/2021 by Laz Nolasco MD at [facility] Other - see comments Left: Knee [employer] [id number] 08/02/2026 5531-G-610 -E / N/A / [id number] Total Joint Bilatera l: Knee [employer] 6197-9-010 Simplex P Full Dose Radiopaque Preblend Cement Bone Tobramycin - [id number] Implanted:Qty: 2 on 09/30/2019 by Fransisco Heard MD at [facility] Right: Knee [employer] [id number] 6197-9-010 / / Allosource Crushed Chip Frozen Graft 30ml Bone Cancellous [id number] - [id number] Implanted:Qty: 1 on 10/23/2023 by Marcial Vu MD at [facility] N/A: Spine Lumbar [employer]ource 06/05/2028 [id number] / / [id number] Cer[employer] Inc Allograft Bone Putty 2.5cc 700-025 - [id number] Implanted:Qty: 1 on 10/23/2023 by Marcial Vu MD at [facility] N/A: Spine Lumbar [employer] Inc [id number] 01/02/2026 700-025 / / [id number] [employer] Creo Od7.5 Mm L55 Mm Thread Polyaxial Spine Screw Bone Titanium 5146.1757 - [id number] Implanted:Qty: 1 on 10/23/2023 by Marcial Vu MD at [facility] N/A: Spine Lumbar [employer] 5146.1757 / / [employer] Creo Od7.5 Mm L50 Mm Thread Polyaxial Spine Screw Bone Titanium 5146.1752 - [id number] Implanted:Qty: 3 on 10/23/2023 by Marcial Vu MD at [facility] N/A: Spine Lumbar [employer] 5146.1752 / / [employer] Creo Thread Spinal Cap Locking Nonsterile 1119.0010 - [id number] Implanted:Qty: 4 on 10/23/2023 by Marcial Vu MD at [facility] N/A: Spine Lumbar [employer] 1119.0010 / / [employer] Implant Spinal Sable 46o54ze 7-14mm 15 Deg 1172.1s - [id number] Implanted:Qty: 1 on 10/23/2023 by Marcial Vu MD at [facility] N/A: Spine Lumbar [employer] 1172.1S / / [employer] Creo 5.5mm 45mm Curve Daniel Spinal Titanium 1119.7045 - [id number] Implanted:Qty: 2 on 10/23/2023 by Marcial Vu MD at [facility] N/A: Spine Lumbar [employer] 1119.7045 / / [employer] Rex Arevalo Navalign 30mm 7fr 50mm 65cm Introducer Sheath [id number] - [id number] Implanted:Qty: 1 on 11/09/2023 at [facility] 05/02/2026 [id number] / / [id number] Medtronic Inc Abre 14mm 150mm Self Expand Rotate Thumbwheel Hemostatic Valve [id number] - [id number] Implanted:Qty: 1 on 08/04/2024 at [facility] Med[employer] Inc 04/18/2027 [id number] 1500 90 / / [id number] Medtronic Inc Abre 14mm 150mm Self Expand Rotate Thumbwheel Hemostatic Valve [id number] - [id number] Implanted:Qty: 1 on 08/04/2024 at [facility] [employer] Inc 10/10/2026 [id number] 1500 90 / / [id number] Med[employer]onic Inc Abre 14mm 120mm Self Expand Rotate Thumbwheel Hemostatic Valve [id number] - [id number] Implanted:Qty: 1 on 08/04/2024 at [facility] [employer] Inc 11/25/2026 [id number] 1200 90 / / [id number] Med[employer]onic Inc Abre 14mm 100mm Self Expand Rotate Thumbwheel Hemostatic Valve [id number] - [id number] Implanted:Qty: 1 on 08/04/2024 at [facility] [employer] Inc 02/19/2027 [id number] 1000 90 / / [id number] Explanted Type Area Staff Auditor Device Identifier Shelf Expiration Date Model / Serial / Lot [employer] [id number] 4mm 110mm Pin Fixation Sterile - Sn/A - [id number] Explanted:Qty: 1 on 10/17/2021 by Laz Nolasco MD at [facility] Pin Left: Knee [employer] [id number] / N/A / Description:For provisional purposes only [employer] [id number] 4mm 140mm Knee Straight Pin Fixation Sterile - Sn/A - [id number] Explanted:Qty: 1 on 10/17/2021 by Laz Nolasco MD at [facility] Pin Left: Knee [employer] [id number] / N/A / Description:For provisional purposes only [employer] Universa 6fr 28cm Firm Positioner Monofilament Tether Stent H94363 - [id number] Implanted:Qty: 1 on 10/18/2023 by Gabriel Bennett MD at [facility] Explanted:Qty: 1 on 02/27/2024 at [facility] Stent Left: Ureter [employer] [id number] 05/22/2026 [id number] / / [id number] [employer] [id number] 6fr 26cm 145cm Radiopaque Positioner Filiform Flexible Tip - [id number] Implanted:Qty: 1 on 02/27/2024 by Temo Mcintosh MD at [facility] Explanted:Qty: 1 on 06/06/2024 by Temo Mcintosh MD at [facility] Stent Left: Ureter [employer] [id number] 12/07/2026 [id number] / / [id number] Description:Explanted comple te and intact Procedures Procedure Name Priority Date/Time Associated Diagnosis Comments CTA ABDOMEN PELVIS W WO CONTRAST ED 11/13/2024 10:15 PM BRAND SPECIALIST from Last 3 Months or Most Recently Relevant to Health Maintenance Results * CTA Abdomen Pelvis (11/13/2024 10:15 PM BRAND SPECIALIST) Anatomical Region Laterality Modality Body N/A Computed Tomogra phy 11/13/2024 10:5 0 PM BRAND SPECIALIST Narrative 11/13/2024 11:15 PM BRAND SPECIALIST EXAM DESCRIPTION: CTA ABDOMEN PELVIS REASON FOR STUDY: GI bleed Patient is having black tarry stools today. Also has blood in the Sofia. Patient on Xarelto. He comes from a [facility]dc. He is paralyzed from the waist down. Patient has no complaints. TECHNIQUE: CTA scan of the abdomen and pelvis performed without and with intravenous and without oral contrast using helical scanning technique with dynamic intravenous contrast injection. Precontrast, arterial, and portal venous phase images of the abdomen and pelvis were acquired. Images reviewed with lung, soft tissue and bone windows. Reconstructed coronal and sagittal MPR images reviewed. All images stored on PACS. 3D MIP images rendered on scanning unit and reviewed at time of interpretation. Automated exposure control was used as a dose optimization technique for this examination. CONTRAST TYPE/DOSE: 100mL of IOVERSOL 350 MG IODINE/ML INTRAVENOUS SYRINGE injected COMPARISON: Quite unbelievable 09/29/2024 FINDINGS: LOWER CHEST: Mild scattered subsegmental atelectasis and mild scattered bilateral pulmonary parenchymal scarring. No pleural effusion. Mild cardiomegaly. Imaged portions of the esophagus are within normal limits. LIVER: Normal size. Redemonstration of numerous hypoattenuating hepatic lesions which are unchanged some of which reflect cysts and others are too small to characterize. The hepatic and portal veins are patent. GALLBLADDER: Normal. BILE DUCTS: No intrahepatic or extrahepatic ductal dilatation. SPLEEN: Normal size. No focal lesions. PANCREAS: No identified cystic or solid masses. No significant calcifications. No adjacent inflammation or peripancreatic fluid collections. Pancreatic duct not dilated. ADRENALS: Normal. KIDNEYS/URINARY TRACT: There are subcentimeter hypoattenuating bilateral renal lesions which are too small to characterize. Left extrarenal pelvis. There is unchanged mild left ureteral urothelial thickening and enhancement extending to the left renal pelvis. There is a 3 mm nonobstructive right renal calculus.. No hydronephrosis or hydroureter. Symmetric enhancement. The urinary bladder is decompressed by a Sofia catheter and demonstrates circumferential wall thickening and perivesical fat stranding which could reflect acute cystitis. The suprapubic catheter is appropriately positioned and intact. GI: The stomach is normal. Small bowel and colon normal in course and caliber with no evidence of obstruction or inflammation. No CT evidence of acute appendicitis. PERITONEUM: No ascites or free air. No lymphadenopathy. RETROPERITONEUM: No mass or adenopathy. Vasculature: The abdominal aorta and its branches are patent. Redemonstration of stents extending from the inferior vena cava to bilateral common external iliac stents there patency is incompletely evaluated on this examination due to phase of contrast. There is no evidence of an aneurysm. REPRODUCTIVE: Prior prostatectomy. MUSCULOSKELETAL: No acute fractures or aggressive osseous lesions. Diffuse osteopenia. Posterior decompression and instrumented posterior spinal fusion at L4-L5 with interbody implant applications. OTHER: Surgical clips within the pelvis likely from prior lymph node dissection. IMPRESSION: 1. Decompressed urinary bladder by intact and appropriately positioned suprapubic catheter. Circumferential wall thickening of the urinary bladder with perivesical fat stranding which could reflect acute cystitis. 2. No active contrast extravasation to indicate active bleeding. THIS IS AN ELECTRONICALLY VERIFIED FINAL REPORT 11/13/2024 11:15 PM - Electronically signed by Carmina Sharma M.D. AT: AT Report ID: [id number] Reading Location: [id number] Procedure Note Carmina Sharma MD - 11/13/2024 EXAM DESCRIPTION: CTA ABDOMEN PELVIS REASON FOR STUDY: GI bleed Patient is having black tarry stools today. Also has blood in the Sofia. Patient on Xarelto. He comes from a [facility]. He is paralyzed from the waist down. Patient has no complaints. TECHNIQUE: CTA scan of the abdomen and pelvis performed without and with intravenous and without oral contrast using helical scanning techniquewith dynamic intravenous contrast injection. Precontrast, arterial, and portal venous phase images of the abdomen and pelvis were acquired. Images reviewed with lung, soft tissue and bone windows. Reconstructed coronaland sagittal MPR images reviewed. All images stored on PACS. 3D MIP images rendered on scanning unit and reviewed at time of interpretation.Automated exposure control was used as a dose optimization technique for this examination. CONTRAST TYPE/DOSE: 100mL of IOVERSOL 350 MG IODINE/ML INTRAVENOUSSYRINGE injected COMPARISON: Quite unbelievable 09/29/2024 FINDINGS: LOWER CHEST: Mild scattered subsegmental atelectasis and mild scattered bilateral pulmonary parenchymal scarring. No pleural effusion. Mild cardiomegaly. Imaged portions of the esophagus are within normal limits. LIVER: Normal size. Redemonstration of numerous hypoattenuating hepatic lesions which are unchanged some of which reflect cysts and others are too small to characterize. The hepatic and portal veins are patent. GALLBLADDER: Normal. BILE DUCTS: No intrahepatic or extrahepatic ductal dilatation. SPLEEN: Normal size. No focal lesions. PANCREAS: No identified cystic or solid masses. No significant calcifications. No adjacent inflammation or peripancreatic fluidcollections. Pancreatic duct not dilated. ADRENALS: Normal. KIDNEYS/URINARY TRACT: There are subcentimeter hypoattenuating bilateral renal lesions which are too small to characterize. Left extrarenalpelvis. There is unchanged mild left ureteral urothelial thickening andenhancement extending to the left renal pelvis. There is a 3 mm nonobstructive right renal calculus.. No hydronephrosis or hydroureter. Symmetric enhancement. The urinary bladder is decompressed by a Sofia catheter and demonstrates circumferential wall thickening and perivesical fat stranding which could reflect acute cystitis. The suprapubic catheter is appropriatelypositioned and intact. GI: The stomach is normal. Small bowel and colon normal in course and caliber with no evidence of obstruction or inflammation. No CT evidenceof acute appendicitis. PERITONEUM: No ascites or free air. No lymphadenopathy. RETROPERITONEUM: No mass or adenopathy. Vasculature: The abdominal aorta and its branches are patent.Redemonstration of stents extending from the inferior vena cava to bilateral commonexternal iliac stents there patency is incompletely evaluated on this examinationdue to phase of contrast. There is no evidence of an aneurysm. REPRODUCTIVE: Prior prostatectomy. MUSCULOSKELETAL: No acute fractures or aggressive osseous lesions.Diffuse osteopenia. Posterior decompression and instrumented posterior spinalfusion at L4-L5 with interbody implant applications. OTHER: Surgical clips within the pelvis likely from prior lymph node dissection. IMPRESSION: 1. Decompressed urinary bladder by intact and appropriately positioned suprapubic catheter. Circumferential wall thickening of the urinarybladder with perivesical fat stranding which could reflect acute cystitis. 2. No active contrast extravasation to indicate active bleeding. THIS IS AN ELECTRONICALLY VERIFIED FINAL REPORT 11/13/2024 11:15 PM - Electronically signed by Carmina Sharma M.D. AT: AT Report ID: [id number] Reading Location: [id number] Gabriel Byrd MD IM CT PROCEDURES Final Resu lt from Last 3 Months or Most Recently Relevant to Health Maintenance Insurance [facility] MEDICARE ADVANTAGE [facility] MEDICARE Address: [address] [address] [place] [address] MEDICARE [facility] MEDICARE ADVANTAGE [facility] MEDICARE Address: [address] [address] [place] [address] [facility] MEDICARE ADVANTAGE [facility] MEDICARE Address: [address] [address] [place] [address] Advance Directives For more information, please contact: [phone] Documents on File Type Date Recorded Patient Scrub Woman Expl anation ADVANCE DIRECTIVE 11/14/2024 12:32 AM DNR ADVANCE DIRECTIVE 03/05/2024 7:22 PM POLST ADVANCE DIRECTIVE 10/17/2021 10:30 AM Val Evans ADVANCE DIRECTIVE 09/30/2019 11:55 AM Pow er of Human Resources Coordinator-Medical ADVANCE DIRECTIVE 09/30/2019 11:54 AM Pow er of Human Resources Coordinator-Medical * Full Code (Latest Code Status on File) Date Activated Date Inactivated Comments 11/27/2024 7:51 PM 11/30/2024 10:35 PM * LIMITED - No CPR Date Activated Date Inactivated Comments 11/14/2024 11:39 PM 11/17/2024 5:04 PM * Full Code Date Activated Date Inactivated Comments 11/14/2024 12:16 PM 11/14/2024 11:39 PM * LIMITED - No CPR Date Activated Date Inactivated Comments 11/13/2024 11:45 PM 11/14/2024 12:16 PM Question Answer Comments Provide aggressive medical m anagement before a full cardiopulmonary arrest occurs. Use antibiotics, IV Fluids, and medical treatment unless specifically selected below: No intubation * Full Code Date Activated Date Inactivated Comments 08/04/2024 10:35 AM 08/05/2024 4:46 AM Healthcare Agents on File Name Relationship Healthcare Agent Relationshi p Communication Val Evasn Spouse Health Care Agent Marcial Evans Son First Alternate Health Care Agent Care Teams [employer] Relationship Specialty Start Date End Date No, Physician PCP - General 05/26/24
--- OUTSIDE RECORDS SUMMARY | 2025-08-25 09:51 | XMS_ITS | Encounter Summary ---
Author Organization [facility] Healthcare Address [address] [place] [address] Care Team Providers Care Audit Spec Name Role Phone Rl Medina DO Primary Care Provider No, Physician Primary Care Provider [phone] Encounter Details Date Type Department Care Team (Late st Contact Info) Description 03/13/2024 Telephone [facility] Radiology [address] [place] [address] Crow Pham RN Social History Tobacco Use Types Packs/Day Years Used Date Smoking Tobacco: Former Cigarettes 1 09 05 969 - 1979 Passive Smoke Exposure: Never Smokeless Tobacco: Never Alcohol Use Standard Drinks/Week Comments Yes 14 (1 standard drink = 0.6 oz pu re alcohol) social C Utilities Answer Date Recorded In the past 12 months has [employer], gas, oil, or water [employer] threatened to shut off services in your [...] file 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 Gender Identity Not on file Sexual Orientation Not on file 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
== END 2025-08-25 08:59 | disposition home or self-care (01) ==
PROVIDERS: PCP Family Medicine; Visit Provider Nurse Practitioner Family
DX: M79.89 Other specified soft tissue disorders (principal); L97.509 Non-pressure chronic ulcer of other part of unspecified foot with unspecified severity
CPT/HCPCS: 73630; 78315; A9503